=== PATIENT | male | born 1950 | race Caucasian/White ===

== ENCOUNTER → 2017-07-28 14:08 | Outpatient (CLI) | payer MEDICARE, SELFPAY ==
--- NOTE | 2017-07-28 14:08 | DT_ITS ---
This patient was seen during an EMR downtime July 28, 2017 - August 04, 2017. This patient may have a combination of paper and electronic documentation or all paper documentation. All documentation is viewable within the e-chart portion of [facility] for each patient visit.
[2017-08-03 03:44] LABS: Hematocrit 34.4 % (40-54); Hemoglobin 10.8 g/dl (13.0-16.5); Mean Corp Hgb Conc 31.4 g/gl (32-36); Mean Corpuscular Hgb 27.8 pg (27.0-32.0); Mean Corpuscular Volume 88.7 fL (80-94); Mean Platelet Vol. 11.3 fl (6.2-12.0); POSITIVE COUNT NO; POSITIVE DIFFERENTIAL NO; POSITIVE MORPHOLOGY NO; Platelet Count 235 K/mm3 (150-450); RBC Distribution Width CV 15.2 % (11.6-14.6); RBC Distribution Width SD 48.3 fl (35.1-43.9); Red Blood Count 3.88 M/mm3 (4.6-6.2); White Blood Count 5.5 K/mm3 (4.4-11.0)
[2017-08-03 03:45] LABS: Absolute Lymphocyte Count 1.18 X10^3/ul (0.83-4.51); Absolute Neutrophil Count 3.5 X10^3/uL (2.0-7.7); Basophil% 0.5 % (0-1); Eosinophils% 2.5 % (0-5); Lymphocyte # 1.18 X10^3/ul (4.0); Lymphocyte % 21.3 % (19-41); Neutrophil # 3.45 X10^3/uL (2.7-7.7); Neutrophil % 62.3 % (47-70)
[2017-08-03 03:46] LABS: Basophil# 0.03 X10^3/uL; Eosinophil# 0.14 X10^3/uL; Monocyte# 0.72 X10^3/uL
[2017-08-03 08:46] LABS: AST(SGOT) 16 U/L (15-37); Alanine Aminotransfer ALT/SGPT 26 U/L (16-61); Albumin, Serum 3.8 g/dL (3.2-5.0); Alkaline Phosphatase 66 U/L (45-117); BUN 14 mg/dL (7-18); BUN/Creat Ratio 17.9 RATIO (10-20); Calcium,Total 8.6 mg/dL (8.5-10.1); Creatinine, Serum 0.78 mg/dL (0.70-1.30); EST Glomerular Filtration Rate 106 mL/min (>60); Est Glom Filt Rate - Afr Amer 128 mL/min (>60); Glucose 116 mg/dL (74-106); Sodium Level 143 mmol/L (136-145)
[2017-08-03 08:47] LABS: Anion Gap 9 (5-15); Chloride 109 mmol/L (98-107); Ferritin 16 ng/mL (26-388); Iron 74 ug/dL (65-175); Potassium 4.4 mmol/L (3.5-5.1)
== END ==
PROVIDERS: Visit Provider Family Medicine
DX: E11.40 Type 2 diabetes mellitus with diabetic neuropathy, unspecified (principal); E11.65 Type 2 diabetes mellitus with hyperglycemia; E78.5 Hyperlipidemia, unspecified; D64.9 Anemia, unspecified; E66.9 Obesity, unspecified; Z85.72 Personal history of non-Hodgkin lymphomas; Z72.0 Tobacco use
CPT/HCPCS: 36415; 80053; 82043; 82570; 82607; 82728; 83540; 85025

== ENCOUNTER 2017-09-23 07:12 | Day surgery (SDC) | payer MEDICARE, SELFPAY ==
[2017-09-23] VITALS (10 sets, daily range): BP systolic 101–153; BP diastolic 49–92; PULSE 70–96; RESP 16–18; TEMP 35.9–36.2; O2SAT 94–98; BMI 32.1
--- NOTE | 2017-09-23 | IMM_PTH ---
PATIENT: SAL ALONZO Jr. LOC: [facility]#:[id number] AGE/SX: 67/M ROOM: RE09/23/[address]: Dr. Wilberto Huerta MD : 1950 BED: DIS: 09/23/2017 SPEC #: [id number] RECD: 09/24/17 14:30 STATUS: MICHELLE SCOOTER #: [id number] SURY: 09/23/17 00:[address]: Wilberto Huerta DEPT: IMMUNOHISTOCHEMISTRY RECD BY: Karen Garner ENTERED: 09/24/17 14:31 SP TYPE: IMMUNO OTHR DR: Dr. Lalo De Jesus, DO Tissues: A - Stomach, NOS Procedures: H Pylori (initial) PHYSICIAN & INSTITUTION [place] [id number] SPECIMEN INFORMATION: Tissue Source: A ? Antral biopsy Clinical Info: Positive Cologuard test; family history colon CA Specimen Number: [id number] CPT code: 70153 METHODOLOGY: Deparaffinized sections of prefer/formalin-fixed tissue or PAP/DQ stained slides are incubated with monoclonal/polyclonal antibodies/oligonucleotide probes. Localization is made via biotin free immunoperoxidase method. Appropriate controls are performed and reacted as expected. Results on target cell population are indicated in the following table: RESULTS: ANTIBODY / CLONE RESULT Block A H Pylori (polyclonal) negative These tests were developed and their performance characteristics determined by [facility]. They may not have been cleared or approved by the [place]. Food and Drug Administration. The FDA has determined that such clearance or approval is not necessary. INTERPRETATION: A. Antral biopsy: Negative for Helicobacter pylori organisms. SJ:mirtha 09/25/17
[2017-09-23 07:46] LABS: Bedside Glucose 153 mg/dL (70-110)
--- NOTE | 2017-09-23 08:29 | OP.PCM_ITS ---
Problem List (1) Positive colorectal cancer screening using Cologuard test Status: Acute Report of Operation Date of Procedure: 09/23/17 Pre-Operative Diagnosis: Positive coloGuard screening examination Post-Operative Diagnosis: Prepyloric antral gastritis, small hiatal hernia. Diminutive sessile possible polyp of the ascending colon. Diminutive sessile polyp of the descending colon. Grade 2-3 internal and external hemorrhoids Surgery/Procedure Performed:: Esophagogastroduodenoscopy with antral biopsy with cold forceps. Colonoscopy with cold forcep ascending and descending biopsy Description of Surgical Findings:: Timeout and informed consent was obtained. 67-year-old gentleman was taken to the endoscopy suite. His oropharynx anesthetized with Topex. He was placed in a left lateral decubitus position. Throughout both the upper and lower endoscopy he received a total of 100 mg of Demerol and 50 mcg of fentanyl and 4.5 mg of Versed is intravenous sedation. Flexible gastroscope was inserted into the esophageal inlet. The proximal mid distal esophagus did not appear to be unremarkable. The EG junction was at 45 cm. Small hiatal hernia noted. There were no gross evidence of reflux. The scope was advanced in the stomach advanced down where there was mild irritation with some erythema with evidence suggesting recent bleeding of the prepyloric area. The scope was advanced through the pylorus. The first and second portions of the duodenum were inspected not remarkable. The scope was withdrawn back into the stomach retroflexed small hiatal hernia noted the cardia was not remarkable. Greater and lesser curvatures appeared normal. The scope was advanced down to the antrum where the mild erythema was noted. Antral biopsies obtained of the area that appeared to be with recent bleeding. Excess fluid and air was aspirated free. The scope was withdrawn to the distal esophagus no additional abnormalities of procedure was completed. The patient was kept in a left loud skin position. Digital rectal exam demonstrated at least grade 2 hemorrhoids. 2+ prostate. No mass lesions. Flexible colonoscope was in the rectum advanced through the colon patient was placed supine and with some transabdominal pressure the scope was advanced to the cecum. Bowel prep was good. The cecum ileocecal valve area was nicely achieved. The scope was carefully withdrawn and what appear to be in the mid ascending colon was a very small 4 Riddle polyp-like lesion. Upon inserting the biopsy forcep however what appeared to be likely a polyp seemed to a flattened. I did take a biopsy of that area anyway based upon the colon card testing. There did not appear to be a cystic lesion at the completion of the biopsy. The scope was further withdrawn through the transverse and into the descending colon. In the descending colon there was about a 7 cm sessile polyp- like structure. Cold forceps were used to sample and eradicate this lesion. The scope was further withdrawn without additional abnormality. Scope was retroflexed within the rectum anorectal verge and hemorrhoidal changes noted. Excess fluid and air was aspirated free the procedure was completed he tolerated it well. Impression Prepyloric gastritis with evidence of recent bleeding. Small hiatal hernia. Small polyp-like lesion of the ascending colon. Small polyp of the descending colon. Grade 2-3 internal and external hemorrhoids. The patient will be notified of pathology results as they become available. He will be encouraged to initiate famotidine 20 mg daily for his peptic ulcer disease. Based upon family history of colon cancer in his mother recommendations will be made for follow-up colonoscopy at 5 years. His previous colonoscopy was rather remote. Medications were given at 0750. The upper endoscopy started at 0753. It was completed at 0757. The colonoscopy started at 0800.. The cecum was reached at 0807. The procedure was completed at 0820. Cc: Dr. Lalo Huerta M.D., F.A.C.S. Type of Anesthesia:: IV Sedation
--- NOTE | 2017-09-23 08:30 | EGD_PTH ---
PATIENT: SAL ALONZO Jr. LOC: [facility] Faye#:[id number] AGE/SX: 67/M ROOM: RE09/23/[address]: Dr. Wilberto Huerta MD : 1950 BED: DIS: 09/23/2017 SPEC #: [id number] RECD: 09/23/17 10:37 STATUS: MICHELLE SCOOTER #: [id number] SURY: 09/23/17 08:[address]: Wilberto Huerta DEPT: SURGICAL PATHOLOGY RECD BY: Champ Cuevas ENTERED: 09/23/17 12:05 SP TYPE: EGD BIOPSY RONNY DR: Dr. Lalo De Jesus, DO Tissues: A - Gastric mucous membrane B - Ascending colon C - Descending colon Procedures: Surgery Specimen Level IV HEADER OPERATION: Colonoscopy, EGD PRE-OP DIAGNOSIS: Positive Cologuard test; family history colon CA TISSUE SUBMITTED: A ? Antral biopsy, B ? Ascending colon possible polyp biopsy, C ? Descending colon polyp biopsy MICROSCOPIC DIAGNOSIS A. Antral biopsy: Mild gastritis. B. Ascending colon, possible polyp, biopsy: Fragments of colonic mucosa, no pathologic diagnosis. C. Descending colon polyp, biopsy: Hyperplastic polyp. SJ:mirtha 09/24/17 COMMENT A. The results of immunohistochemistry for Helicobacter pylori will be reported separately ([id number]). MICROSCOPIC DESCRIPTION Slides are reviewed. A. The specimen shows fragments of gastric mucosa with chronic inflammatory cell infiltrates in the lamina propria consisting of lymphocytes and plasma cells, consistent with mild chronic gastritis. GROSS DESCRIPTION A - Received in fixative is one container labeled with the patient's name and designated gastric antrum. The specimen consists of two irregular fragments of light hicks soft tissue that in aggregate measure 0.6 x 0.4 x 0.1 cm. The specimen is totally submitted in one cassette. B - Received in fixative is one container labeled with the patient's name and designated ascending colon ? polyp. The specimen consists of two irregular fragments of light hicks soft tissue that in aggregate measure 0.5 x 0.3 x 0.1 cm. The specimen is totally submitted in one cassette. C - Received in fixative is one container labeled with the patient's name and designated descending colon polyp biopsy. The specimen consists of two irregular fragments of light hicks soft tissue that in aggregate measure 0.8 x 0.4 x 0.1 cm. The specimen is totally submitted in one cassette. / SJ:rg 09/23/17 TC:1 CPT: 00280 x3
== END 2017-09-23 09:17 | disposition home or self-care (01) ==
LOC: EN 07:12 → AC 07:14
PROVIDERS: Family Provider Family Medicine; PCP Family Medicine; Visit Provider Surgery
PROC: 0DJD8ZZ Inspection of Lower Intestinal Tract, Via Natural or Artificial Opening Endoscopic (ICD-10-PCS; CPT 45378; principal; 2017-09-23 08:25)
DX: K29.71 Gastritis, unspecified, with bleeding (principal); K63.5 Polyp of colon; K44.9 Diaphragmatic hernia without obstruction or gangrene; K64.2 Third degree hemorrhoids; K27.9 Peptic ulcer, site unspecified, unspecified as acute or chronic, without hemorrhage or perforation; K64.4 Residual hemorrhoidal skin tags; D50.9 Iron deficiency anemia, unspecified; M06.9 Rheumatoid arthritis, unspecified; I10 Essential (primary) hypertension; E11.9 Type 2 diabetes mellitus without complications; I25.10 Atherosclerotic heart disease of native coronary artery without angina pectoris; E78.5 Hyperlipidemia, unspecified; F17.200 Nicotine dependence, unspecified, uncomplicated; Z95.5 Presence of coronary angioplasty implant and graft; Z85.71 Personal history of Hodgkin lymphoma; Z80.0 Family history of malignant neoplasm of digestive organs; Z79.4 Long term (current) use of insulin; Z79.82 Long term (current) use of aspirin; Z79.02 Long term (current) use of antithrombotics/antiplatelets; Z79.899 Other long term (current) drug therapy
CPT/HCPCS: 43239; 45380; 82962; 88305; 88342; 99152; 99153; J7120

== ENCOUNTER → 2017-11-07 15:56 | Outpatient (CLI) | payer MEDICARE, SELFPAY | PROVIDERS: Family Provider Family Medicine; PCP Family Medicine; Visit Provider Family Medicine | DX: D50.9 Iron deficiency anemia, unspecified (principal); R19.7 Diarrhea, unspecified; R19.5 Other fecal abnormalities | CPT/HCPCS: 82274; 83630; 87177; 87209; 87493; 87506 ==

== ENCOUNTER → 2018-01-21 13:55 | Outpatient (CLI) | payer MEDICARE, SELFPAY ==
[2018-01-21 15:57] LABS: Absolute Lymphocyte Count 1.13 X10^3/ul (0.83-4.51); Absolute Neutrophil Count 5.2 X10^3/uL (2.0-7.7); Basophil# 0.05 X10^3/uL; Basophil% 0.6 % (0-1); Eosinophil# 0.18 X10^3/uL; Eosinophils% 2.3 % (0-5); Hematocrit 34.1 % (40-54); Hemoglobin 11.5 g/dl (13.0-16.5); Lymphocyte # 1.13 X10^3/ul (4.0); Lymphocyte % 14.5 % (19-41); Mean Corp Hgb Conc 33.7 g/gl (32-36); Mean Corpuscular Hgb 30.3 pg (27.0-32.0); Mean Corpuscular Volume 89.7 fL (80-94); Monocyte# 1.13 X10^3/uL; Monocyte% 14.5 % (0-10); Neutrophil # 5.19 X10^3/uL (2.7-7.7); Neutrophil % 66.8 % (47-70); Platelet Count 307 K/mm3 (150-450); RBC Distribution Width CV 12.4 % (11.6-14.6); RBC Distribution Width SD 39.8 fl (35.1-43.9); White Blood Count 7.8 K/mm3 (4.4-11.0)
[2018-01-21 16:02] LABS: POSITIVE COUNT NO; POSITIVE DIFFERENTIAL NO; POSITIVE MORPHOLOGY NO
[2018-01-21 16:21] LABS: BUN 14 mg/dL (7-18); Glucose 182 mg/dL (74-106)
[2018-01-21 16:22] LABS: ALB/GLOB Ratio 0.9 RATIO (0.9-2.4); AST(SGOT) 14 U/L (15-37); Alanine Aminotransfer ALT/SGPT 24 U/L (16-61); Albumin, Serum 3.3 g/dL (3.2-5.0); Alkaline Phosphatase 70 U/L (45-117); Anion Gap 9 (5-15); BUN/Creat Ratio 15.5 RATIO (10-20); Calcium,Total 8.4 mg/dL (8.5-10.1); Chloride 106 mmol/L (98-107); EST Glomerular Filtration Rate 89 mL/min (>60); Est Glom Filt Rate - Afr Amer 108 mL/min (>60); Ferritin 115 ng/mL (26-388); Globulin 3.7 g/dL (2.2-4.2); Hemoglobin A1c 7.1 % (4.2-6.3); Iron 54 ug/dL (65-175); Potassium 4.7 mmol/L (3.5-5.1); Sodium Level 139 mmol/L (136-145)
--- OUTSIDE RECORDS SUMMARY | 2018-03-18 23:42 | XMS RPT_ITS ---
:1950 Author Organization OHIP Care Team Providers Name Role Phone OMAR RODRIGUEZ Attending Unavailable Lalo De Jesus Attending Unavailable Lalo De Jesus Referring Unavailable Lalo De Jesus Attending Unavailable Cebumohit, Wilberto Attending Unavailable Neal Lalo Referring Unavailable Cebul, Wilberto Attending Unavailable NealLalo lozano Primary Care Unavailable Cebul, Wilberto Referring Unavailable Cebumohit, Wilberto Attending Unavailable Cebul, Wilberto Referring Unavailable Neal, Lalo Primary Care Unavailable Cebul, Wilberto Consulting Unavailable Neal, Lalo Attending Unavailable Neal, Lalo Primary Care Unavailable Neal, Lalo Attending Unavailable Neal, Lalo Primary Care Unavailable PROBLEMS PROBLEMS DATE TYPE CONDITION / CODE ATTENDING STATUS SOURCE 01/21/2018 Unknown E11.40 - Type 2 Lalo De Jesus Active [place] 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, Repository unspecified / E11.40(ICD-10) 01/21/2018 Unknown D50.9 - Iron Lalo De Jesus Active [facility] deficiency anemia, Community unspecified / Hospital D50.9(ICD-10) Repository 01/21/2018 Unknown E11.65 - Type 2 Lalo De Jesus Active [facility] diabetes mellitus Community with hyperglycemia / Hospital E11.65(ICD-10) Repository 01/21/2018 Unknown E78.5 - Lalo De Jesus Active [facility] [place] Hyperlipidemia, Community unspecified / Hospital E78.5(ICD-10) Repository 01/21/2018 Unknown E66.9 - Obesity, Lalo De Jesus Active [facility] unspecified / Community E66.9(ICD-10) Hospital Repository 11/07/2017 Unknown R19.7 - Diarrhea, Lalo D eJesus Active [facility] unspecified / Community R19.7(ICD-10) Hospital Repository 11/07/2017 Unknown R19.5 - Other fecal Lalo De Jesus Active [facility] abnormalities / Community R19.5(ICD-10) Hospital Repository 09/03/2017 Unknown Z98.890 - Other CebuWilberto rueda Active [facility] specified Community postprocedural Hospital states / Repository Z98.890(ICD-10) 09/03/2017 Unknown Z95.5 - Presence of Cebumohit, Wilberto Active [facility] coronary angioplasty Community implant and graft / Hospital Z95.5(ICD-10) Repository 09/03/2017 Unknown Z90.89 - Acquired Cebul, Wilberto Active [facility] absence of other Community organs / Hospital Z90.89(ICD-10) Repository 09/03/2017 Unknown Z86.39 - Personal CebulWilberto Active [facility] history of other Community endocrine, Hospital nutritional and Repository metabolic disease / Z86.39(ICD-10) 09/03/2017 Unknown Z85.71 - Personal CebuWilberto rueda Active [facility] [place] history of Hodgkin Community lymphoma / Hospital Z85.71(ICD-10) Repository 08/12/2017 Unknown D64.9 - Anemia, Lalo De Jesus Active [facility] [place] unspecified / Community D64.9(ICD-10) Hospital Repository PROCEDURES PROCEDURES No Procedure Records FoundRESULTS RESULTS CBC W/DIFF, AUTOMATED Collected: 01/21/2018 Status: F Source: [place] 1:59 PM [facility] HOSPITAL REPOSITORY TYPE CODE TESTS RESULT OUT OF RANGE REFERENCE UNITS LAB L100.1000 4.4-11.0 K/mm3 Normal WBC 7.8 LAB L100.1200 4.6-6.2 M/mm3 Low RBC 3.80 LAB L100.1300 13.0-16.5 g/dl Low HGB 11.5 LAB L100.1400 40-54 % Low HCT 34.1 LAB L100.1500 80-94 fL Normal MCV 89.7 LAB L100.1600 27.0-32.0 pg Normal MCH 30.3 LAB L100.1700 32-36 g/gl Normal MCHC 33.7 LAB L100.1810 11.6-14.6 % Normal RDW CV 12.4 LAB L100.1820 35.1-43.9 fl Normal RDW SD 39.8 LAB L100.1900 150-450 K/mm3 Normal PLT 307 LAB L100.2000 6.2-12.0 fl Normal MPV 11.0 LAB L100.2100 47-70 % Normal NEUT% 66.8 LAB L100.2200 19-41 % Low LY% 14.5 LAB L100.2300 0-10 % High MONO% 14.5 LAB L100.2400 0-5 % Normal EO% 2.3 LAB L100.2500 0-1 % Normal BASO% 0.6 LAB L100.2550 0.0-0.9 % High IM GRAN % 1.300 Result Comment: IG% - Immature Granulocytes (promyelocytes, myelocytes and metamyelocytes) > 1% indicates that a LEFT SHIFT is Present. LAB L100.2620 2.0-7.7 X10 3/uL Normal Absolute Neut 5.2 LAB L100.2720 0.83-4.51 X10 3/ul Normal Absolute Lymph 1.13 Performed By: #### L100.0100 #### [facility] [address] [place], [place], [id number] COMPREHENSIVE METABOLIC Collected: 01/21/2018 Status: F Source: [place] [facility] 1:59 PM [facility] REPOSITORY TYPE CODE TESTS RESULT OUT OF RANGE REFERENCE UNITS LAB L501.0100 74-106 mg/dL High GLU 182 Result Comment: Fasting Glucose result greater than or equal to 126 mg/dL suggests DIABETES MELLITUS per A.D.A. criteria. Please note revised GLUCOSE reference range effective 2017. LAB L501.1000 7-18 mg/dL Normal BUN 14 LAB L501.1100 0.70-1.30 mg/dL Normal CREAT,SERUM 0.90 Result Comment: The validity of the calculated GFR AND GFRAA in patients over 70 years has not been determined. Clinical correlation is essential. LAB L501.1110 >60 mL/min Normal EST GFR 89 Result Comment: Non- GFR Calc LAB L501.1115 >60 mL/min Normal EST GFR - AA 108 Result Comment: GFR Calc LAB L501.1300 10-20 RATIO Normal BUN/CRE 15.5 LAB L501.1500 6.4-8.2 g/dL T Normal PROT 7.0 LAB L501.1800 3.2-5.0 g/dL Normal ALB 3.3 LAB L501.1950 2.2-4.2 g/dL Normal GLOB 3.7 LAB L501.2000 0.9-2.4 RATIO Normal A/G 0.9 LAB L501.2200 8.5-10.1 mg/dL Low CA 8.4 LAB L501.4100 15-37 U/L Low AST 14 LAB L501.4305 45-117 U/L Normal ALK P 70 LAB L501.4405 16-61 U/L Normal ALT 24 LAB L501.4600 0.20-1.00 mg/dL T Normal BILI 0.40 LAB L501.5300 136-145 mmol/L NA Normal 139 LAB L501.5600 3.5-5.1 mmol/L K Normal 4.7 LAB L501.5900 98-107 mmol/L CL Normal 106 LAB L501.6100 21.0-32.0 mmol/L Normal CO2 24.0 LAB L501.6200 5-15 Normal GAP 9 Performed By: #### L500.4050, L503.6150, L503.6550 #### [facility] [address] [place], [address] IRON Collected: 01/21/2018 Status: F Source: [place] 1:59 PM [facility] REPOSITORY TYPE CODE TESTS RESULT OUT OF RANGE REFERENCE UNITS LAB L503.6150 65-175 ug/dL Low IRON 54 Performed By: #### L500.4050, L503.6150, L503.6550 #### [facility] [address] [place], [address] FERRITIN Collected: 01/21/2018 Status: F Source: [place] 1:59 PM [facility] REPOSITORY TYPE CODE TESTS RESULT OUT OF RANGE REFERENCE UNITS LAB L503.6550 26-388 ng/mL Normal FERRITIN 115 Performed By: #### L500.4050, L503.6150, L503.6550 #### [facility] [address] [place], [address] HEMOGLOBIN A1C Collected: 01/21/2018 Status: F Source: [place] 1:59 PM [facility] REPOSITORY TYPE CODE TESTS RESULT OUT OF RANGE REFERENCE UNITS LAB L501.9985 4.2-6.3 % High HGB A1C 7.1 Performed By: #### L501.9985 #### [facility] [address] [place], [address] STOOL Observed: 11/07/2017 Status: F Source: [place] LACTOFERRIN/WBC 3:57 PM [facility] REPOSITORY RESULTS CALLED TO DR DE JESUS 11/07/17 Marvin Nair. REPORT READ BACK BY SAME. Stool Lacto/WBC Normal Reference Range = Negative Fecal WBC Lactoferrin Negative: No Fecal WBC Lactoferrin present Performed By: #### M100.0605, M100.7900, M100.1396, M100.637 #### [facility] [address] [facility], [address] Observed: 11/07/2017 Status: F Source: [place] STOOL OCCULT BLOOD 3:57 PM [facility] IFOB REPOSITORY RESULTS CALLED TO DR DE JESUS 11/07/172008 Claire Nair. REPORT READ BACK BY SAME. STOB iFOB Occult Blood Positive ORGANISM 1: OCCULT BLOOD POSITIVE Performed By: #### M100.0605, M100.7900, M100.6796, M100.637 #### [facility] [address] [facility], [address] Observed: 11/07/2017 Status: F Source: [place] CDIFF (MOLECULAR) 3:57 PM [facility] REPOSITORY RESULTS CALLED TO DR DE JESUS 11/07/172008 Claire Nair. REPORT READ BACK BY SAME. Cdiff-Molecular Normal Reference Range = Negative C. Diff DNA Positive-Toxigenic C. Difficile DNA Detected NAAT METHOD Testing was performed using nucleic acid amplification ORGANISM 1: Toxigenic C. difficile DNA Performed By: #### M100.0605, M100.7900, M100.6796, M100.637 #### [facility] [address] [facility], [address] Observed: 11/07/2017 Status: F Source: [place] ENTERIC PATHOGEN 3:57 PM [facility] PANEL STOOL REPOSITORY RESULTS CALLED TO DR DE JESUS 11/07/172008 Claire Nair. REPORT READ BACK BY SAME. EP PANEL STOOL Normal Reference Range = Not Detected Not detected for Campylobacter group, Salmonella species, Shigella species, Vibrio Group, Yersinia enterocolitica, EHEC (Shiga Toxin 1, Shiga Toxin 2), Norovirus Gl/Gll, and Rotavirus A. Other common stool pathogens are not detected on this panel include: Aeromonas/Plesiomonas or parasites. Order testing for these organisms separately if suspected. This is an amplified DNA test which makes it both specific and sensitive. CAMPYLOBACTER Not Detected Salmonella Not Detected Shigella sp. Not Detected Shiga Toxin Not Detected Yersinia Not Detected VIBRIO Not Detected Norovirus Not Detected Rotavirus Not Detected Performed By: #### M100.0605, M100.7900, M100.6796, M100.637 #### [facility] [address] [place], [address] Observed: 11/07/2017 Status: F Source: [place] OVA AND PARASITES 3:57 PM [facility] REPOSITORY O + P OVA AND PARASITES EXAM, ROUTINE These results were obtained using wet preparation(s) and trichrome stained smear. This test does not include testing for Crytosporidium parvum, Cyclospora, or Microsporidia. TESTING PERFORMED AT [facility]. ORIGINAL REPORT ON FILE IN LAB CONTAINS ADDITIONAL TEST SITE INFORMATION. Ova/Parasite Exam NO OVA, CYSTS, OR PARASITES FOUND. Performed By: #### M600.5000 #### [facility] [place], [address] OPERATIVE REPORT Observed: 09/23/2017 Status: F Source: [place] 8:36 AM [facility] REPOSITORY [facility] Medical Records Department [facility] [place] [address] Operative Report 09/23/17 0827 MR#: [id number] Acct: [id number] Name: JAYDON QUINTANA Rep #: [id number] : 1950 67 From: Wilberto Huerta MD PCP: Lalo De Jesus DO Status: [facility] Y Location: [place] [address] Problem List (1) Positive colorectal cancer screening using Cologuard test Status: Acute Report of Operation Date of Procedure: 09/23/17 Pre-Operative Diagnosis: Positive coloGuard screening examination Post-Operative Diagnosis: Prepyloric antral gastritis, small hiatal hernia. Diminutive sessile possible polyp of the ascending colon. Diminutive sessile polyp of the descending colon. Grade 2-3 internal and external hemorrhoids Surgery/Procedure Performed:: Esophagogastroduodenoscopy with antral biopsy with cold forceps. Colonoscopy with cold forcep ascending and descending biopsy Description of Surgical Findings:: Timeout and informed consent was obtained. 67-year-old gentleman was taken to the endoscopy suite. His oropharynx anesthetized with Topex. He was placed in a left lateral decubitus position. Throughout both the upper and lower endoscopy he received a total of 100 mg of Demerol and 50 mcg of fentanyl and 4.5 mg of Versed is intravenous sedation. Flexible gastroscope was inserted into the esophageal inlet. The proximal mid distal esophagus did not appear to be unremarkable. The EG junction was at 45 cm. Small hiatal hernia noted. There were no gross evidence of reflux. The scope was advanced in the stomach advanced down where there was mild irritation with some erythema with evidence suggesting recent bleeding of the prepyloric area. The scope was advanced through the pylorus. The first and second portions of the duodenum were inspected not remarkable. The scope was withdrawn back into the stomach retroflexed small hiatal hernia noted the cardia was not remarkable. Greater and lesser curvatures appeared normal. The scope was advanced down to the antrum where the mild erythema was noted. Antral biopsies obtained of the area that appeared to be with recent bleeding. Excess fluid and air was aspirated free. The scope was withdrawn to the distal esophagus no additional abnormalities of procedure was completed. The patient was kept in a left loud skin position. Digital rectal exam demonstrated at least grade 2 hemorrhoids. 2+ prostate. No mass lesions. Flexible colonoscope was in the rectum advanced through the colon patient was placed supine and with some transabdominal pressure the scope was advanced to the cecum. Bowel prep was good. The cecum ileocecal valve area was nicely achieved. The scope was carefully withdrawn and what appear to be in the mid ascending colon was a very small 4 Riddle polyp-like lesion. Upon inserting the biopsy forcep however what appeared to be likely a polyp seemed to a flattened. I did take a biopsy of that area anyway based upon the colon card testing. There did not appear to be a cystic lesion at the completion of the biopsy. The scope was further withdrawn through the transverse and into the descending colon. In the descending colon there was about a 7 cm sessile polyp-like structure. Cold forceps were used to sample and eradicate this lesion. The scope was further withdrawn without additional abnormality. Scope was retroflexed within the rectum anorectal verge and hemorrhoidal changes noted. Excess fluid and air was aspirated free the procedure was completed he tolerated it well. Impression Prepyloric gastritis with evidence of recent bleeding. Small hiatal hernia. Small polyp-like lesion of the ascending colon. Small polyp of the descending colon. Grade 2-3 internal and external hemorrhoids. The patient will be notified of pathology results as they become available. He will be encouraged to initiate famotidine 20 mg daily for his peptic ulcer disease. Based upon family history of colon cancer in his mother recommendations will be made for follow-up colonoscopy at 5 years. His previous colonoscopy was rather remote. Medications were given at 0750. The upper endoscopy started at 0753. It was completed at 0757. The colonoscopy started at 0800.. The cecum was reached at 0807. The procedure was completed at 0820. Cc: Dr. Lalo Huerta M.D., F.A.C.S. Type of Anesthesia:: IV Sedation 09/23/17 0836 <Electronically signed by Wilberto Huerta MD> Date Wilberto Huerta MD CC: Lalo De Jesus DO; Wilberto Huerta MD Signed EGD ([facility]) Observed: 09/23/2017 Status: F Source: [place] 8:30 AM [facility] REPOSITORY Patient: JAYDON QUINTANA : 1950 (67/M) Acct Num: [id number] Phys: Bradley TEIXEIRA,Wilberto Unit Num: [id number] Loc: EN Specimen: [id number] Received: 09/23/17 - 1037 Spec Type: EGD BIOPSY TISSUES TISSUES: A. Gastric mucous membrane B. Ascending colon C. Descending colon COMMENT A. The results of immunohistochemistry for Helicobacter pylori will be reported separately ([id number]). GROSS DESCRIPTION A - Received in fixative is one container labeled with the patient's name and designated gastric antrum. The specimen consists of two irregular fragments of light hicks soft tissue that in aggregate measure 0.6 x 0.4 x 0.1 cm. The specimen is totally submitted in one cassette. B - Received in fixative is one container labeled with the patient's name and designated ascending colon ? polyp. The specimen consists of two irregular fragments of light hicks soft tissue that in aggregate measure 0.5 x 0.3 x 0.1 cm. The specimen is totally submitted in one cassette. C - Received in fixative is one container labeled with the patient's name and designated descending colon polyp biopsy. The specimen consists of two irregular fragments of light hicks soft tissue that in aggregate measure 0.8 x 0.4 x 0.1 cm. The specimen is totally submitted in one cassette. / KENNETH:mirtha 09/23/17 TC:1 CPT: 36189 x3 HEADER OPERATION: Colonoscopy, EGD PRE-OP DIAGNOSIS: Positive Cologuard test; family history colon CA TISSUE SUBMITTED: A Antral biopsy, B Ascending colon possible polyp biopsy, C Descending colon polyp biopsy MICROSCOPIC DESCRIPTION Slides are reviewed. A. The specimen shows fragments of gastric mucosa with chronic inflammatory cell infiltrates in the lamina propria consisting of lymphocytes and plasma cells, consistent with mild chronic gastritis. MICROSCOPIC DIAGNOSIS A. Antral biopsy: Mild gastritis. B. Ascending colon, possible polyp, biopsy: Fragments of colonic mucosa, no pathologic diagnosis. C. Descending colon polyp, biopsy: Hyperplastic polyp. KENNETH:mirtha 09/24/17 Signed Mc Urias 09/24/17 <signature on file> Performed By: #### PEGD #### [facility] [address] [facility], [address] BEDSIDE GLUCOSE Collected: 09/23/2017 Status: F Source: [place] 7:33 AM [facility] REPOSITORY TYPE CODE TESTS RESULT OUT OF REFERENCE UNITS RANGE LAB L501.080 70-110 mg/dL High BEDSIDE GLU 153 Result Comment: MANAGEMENT OF PATIENT CARE PER NURSING PROTOCOL Performed By: #### L501.080 #### [facility] Point of Care [address] [facility] [address] IMMUNOHISTOCHEMISTRY Observed: 09/23/2017 Status: F Source: [place] 12:00 AM [facility] REPOSITORY Patient: JAYDON QUINTANA : 1950 (67/M) Acct Num: [id number] Phys: Wilberto Huerta MD Unit Num: [id number] Loc: EN Specimen: [id number] Received: 09/24/17 - 1430 Spec Type: IMMUNO TISSUES TISSUES: A. Stomach, NOS SPECIMEN INFORMATION: Tissue Source: A Antral biopsy Clinical Info: Positive Cologuard test; family history colon CA Specimen Number: [id number] CPT code: 82037 METHODOLOGY: Deparaffinized sections of prefer/formalin-fixed tissue or PAP/DQ stained slides are incubated with monoclonal/polyclonal antibodies/oligonucleotide probes. Localization is made via biotin free immunoperoxidase method. Appropriate controls are performed and reacted as expected. Results on target cell population are indicated in the following table: RESULTS: ANTIBODY / CLONE RESULT Block A H Pylori (polyclonal) negative These tests were developed and their performance characteristics determined by [facility]. They may not have been cleared or approved by the U.S. Food and Drug Administration. The FDA has determined that such clearance or approval is not necessary. INTERPRETATION: A. Antral biopsy: Negative for Helicobacter pylori organisms. SJ:mirtha 09/25/17 PHYSICIAN AND INSTITUTION [place] [address] Signed Mc Urias 09/25/17 <signature on file> Performed By: #### PIMM #### [facility] [address] [place] [address], [id number] SURGERY VISIT REPORT Observed: 09/02/2017 Status: F Source: [place] 5:14 PM [facility] REPOSITORY [facility] [address] [place] [address] [address] [place] [address] OFFICE VISIT Date of Service: 09/02/17 MR#: [id number] Acct: [id number] Name: JAYDON QUINTANA Rep #: [id number] : 1950 Provider: Wilberto Huerta MD Age/Sex: 66/M Location: [facility] Status: Signed Intake Vital Signs09/02/17 Height 5 ft 11 in 09/02/17 Weight: 245 lb Intake Visit Reasons: + Cologuard Edm Operator Required: No Allergies No Known Allergies Allergy (Verified 09/02/17 16:11) Medications Aspirin [Aspirin, Baby] 81 mg PO DAILY@0800 09/11/13 [History Confirmed 09/02/17] Glimepiride [Amaryl] 4 mg PO BID 09/11/13 [History Confirmed 09/02/17] Metformin HCl [Glucophage] 1,000 mg PO BIDCM 09/11/13 [History Confirmed 09/02/17] Metoprolol Tartrate [Lopressor (Beta Caren)] 25 mg PO BID 09/11/13 [History Confirmed 09/02/17] Multivitamins,Ther W-Minerals [Multivitamin With Minerals] 1 tab PO DAILY 09/11/13 [History Confirmed 09/02/17] Niacin [Niacin ER] 500 mg PO QHS 09/11/13 [History Confirmed 09/02/17] Atorvastatin Calcium [Lipitor] 40 mg PO QHS 05/22/16 [History Confirmed 09/02/17] Clopidogrel Bisulfate [Plavix] 75 mg PO DAILY 05/22/16 [History Confirmed 09/02/17] Insulin Glargine,Hum.rec.anlog [Lantus] 30 unit SQ QHS 05/22/16 [History Confirmed 09/02/17] Losartan Potassium [Cozaar] 25 mg PO DAILY 05/22/16 [History Confirmed 09/02/17] rituximab 10 mg/mL concentrate,intravenous mg .ROUTE 09/02/17 [History Confirmed 09/02/17] [facility] Medical History History of heart artery stent (Acute) RA (rheumatoid arthritis) (Acute) hypertension (Chronic) History of diabetes mellitus, type II (Chronic) History of coronary artery disease (Chronic) History of hyperlipidemia (Chronic) History of Hodgkin's disease (Chronic) Surgical History Hx of thymectomy (Acute) Hx of lymph node excision (Acute) History of excision of pilonidal cyst (Acute) Family History (Reviewed 07/10/18 @ 16:15 by Tori Pierson Father Arthritis Bleeding disorder Hypertension Kidney disease Cancer Skin Mother Colon cancer Cancer Lung Cancer Diabetes Brother Thyroid disorder Social History Smoking Status: Current every day smoker second hand exposure: Yes alcohol intake: current substance use type: does not use caffeine: Yes what type of physical activity do you participate in: none frequency: does not exercise seatbelt use: always HPI HPI HPI: JAYDON QUINTANA, is a 66 M who presents to the office today for surgical consultation regarding a colo-guard positive exam. The patient is referred by Dr. Lalo De Jesus and a written copy of my surgical consult recommendations will be returned to Dr. De Jesus. The patient recalls in approximately 2004 he had a colonoscopy done by Dr. Elder Méndez. He believes that he may have had a benign polyp removed at that time. He denies any bright red blood per rectum or melena. He did have a stool check and was positive for colo- guard. It is of additional note that his mother had colon cancer when she was in her 60s. The patient himself has had Hodgkin's lymphoma involving the right lower extremity and has had a lymph node resection. He has chronic right lower extremity lymphedema more so than the left. When he was working still he wore right lower extremity support hose. He is currently retired and has not been wearing them. 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 His most recent laboratory was obtained on August 20, 2017. White blood cell count is 5.5 with a hemoglobin 10.8 and hematocrit 34.4 and platelet count 235,000. His iron level 74 and his ferritin is 16. Liver function tests were normal He denies abdominal pain. He has not noticed bright red blood per rectum or melena ROS General General: Yes fatigue; no weight change, appetite, colon cancer, breast cancer or weakness HEENT HEENT: Yes eye injury; no difficulty swallowing, eye surgery, swollen glands or hoarseness Endo Endocrine: Yes diabetes mellitus; no thyroid disease, thyroid cancer, Hair loss, heat intolerance or cold intolerance Skin Skin: No rash or changing moles Musc Musculoskeletal: Yes back problems, arthritis and rheumatoid arthritis; no gout or joint pain Cardio Cardiovascular: Yes high blood pressure and heart stent; no murmur, pacemaker, heart disease, atrial fibrillation, heart attack, palpitations, shortness of breat with exertion or chest pain Psych Psychiatric: No depression, anxiety or hearing voices Resp Respiratory: No shortness of breath, No sleep apnea, Yes cough, No COPD, No asthma, No emphysema, No wheezing Gastro Gastrointestinal: No abdominal pain, No nausea or vomiting, No diarrhea, No constipation, Yes blood in stool, No acid reflux, No hemorrhoids, No ulcers, No gallbladder problem, Yes black,tarry stools Walt Hematologic: Yes blood thinners, No blood disorders, No bleeding, Yes anemia, No blood clots Neuro Neurologic: No weakness Exam Const General: cooperative, healthy appearing, no acute distress Nutritional Appearance: obese Orientation: alert, awake, oriented x3 Other: Heavy odor of tobacco HENMT Head: normal to inspection Eyes General: appearance normal, both eyes and all related structures Neck Neck: normal visual inspection Chest Other: Mildly increased anterior posterior diameter Resp Other: Reasonable excursion. Slightly diminished in the bases with slight dry crackles Cardio Rate: regular rate Rhythm: regular rhythm Heart Sounds: no murmurs GI Inspection: normal to inspection Palpation: soft, no hepatosplenomegaly Auscultation: normal bowel sounds Other: Small umbilical hernia Other: Nonpitting induration/edema noted bilateral groins and suprapubic Musc Cervical Spine: normal cervical lordosis Neuro Cranial Nerves: CN's II-XI intact bilaterally Extrem Other: Significant 2-3+ right lower extremity nonpitting edema and 1+ left lower extremity nonpitting edema. Somewhat of a woody induration Psych Affect: normal affect Assessment AND Plan Problems 1. Hx of lymph node excision Z98.890 2. History of heart artery stent Z95.5 3. Hx of thymectomy Z90.89 4. Iron deficiency anemia, unspecified iron deficiency anemia type D50.9 5. History of diabetes mellitus, type II Z86.39 6. History of Hodgkin's disease Z85.71 7. History of hyperlipidemia Z86.39 Plan 66-year-old gentleman. History of atherosclerotic coronary vascular disease with coronary stenting on clopidogrel and aspirin anticoagulation. Hyperlipidemia on statin. 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 Has had a history of thymectomy. Type 2 diabetes. Hypertension. Obesity. Ongoing tobacco addiction He has been found to have a significant iron deficiency anemia. Family history is positive for colon cancer in his mother. He has had a very remote colonoscopy with by his report a previous colon polyp I am recommending to him a combined esophagogastroduodenoscopy with possible biopsy and colonoscopy with possible biopsy or polypectomy is indicated and I discussed the technique, benefits, risks, alternatives. The indication for the test is positive colo-guard. I have strongly encouraged the patient to cease his tobacco use. He has had an opportunity to ask and have questions answered regarding his tobacco utilization and the potential adverse effects for more definitive surgery. I have encouraged him to utilize bilateral lower extremity support garments. I have provided him a prescription for waist high bilateral extremity support hose 20-30 mmHg pressure. We will proceed with the upper and lower endoscopy upon my return from vacation. I very much appreciate the kind opportunity of assisting with his surgical care Cc: Dr. Lalo Huerta M.D., F.A.C.S. Coding Level of Care Code Comprehensive,moderate Diagnoses Hx of lymph node excision Z98.890 History of heart artery stent Z95.5 Hx of thymectomy Z90.89 Iron deficiency anemia, unspecified iron deficiency anemia type D50.9 Iron deficiency anemia type: unspecified iron deficiency History of diabetes mellitus, type II Z86.39 History of Hodgkin's disease Z85.71 History of hyperlipidemia Z86.39 Time Spent (min) 55 09/02/17 1714 <Electronically signed by Wilberto Huerta MD> Date Wilberto Huerta MD Cosigner Signature: Date (if applicable) CC: DOWNTIME REPORT Observed: 08/14/2017 Status: F Source: [place] 1:19 PM [facility] REPOSITORY [facility] Medical Records Department [address] [place] [address] Downtime Report MR#: [id number] Acct: [id number] Name: JAYDON QUINTANA Rep #: [id number] : 1950 66 From: Isaias Riddle PCP: Status: REG CLI This patient was seen during an EMR downtime July 28, 2017 - August 04, 2017. This patient may have a combination of paper and electronic documentation or all paper documentation. All documentation is viewable within the e-chart portion of [employer] for each patient visit. VITAMIN B12 Collected: 07/28/2017 Status: F Source: [place] 2:08 PM [facility] REPOSITORY TYPE CODE TESTS RESULT OUT OF RANGE REFERENCE UNITS LAB L503.0105 211-911 pg/mL Test Normal Vitamin B12 not performed Result Comment: NO YELLOW TUBE SENT FOR THE VITAMIN B12 DURING DOWNTIME. PATIENT WILL NEED TO BE REDRAWN. Performed By: #### L503.0105 #### [facility] [address] [place], [address] COMPREHENSIVE METABOLIC Collected: 07/28/2017 Status: F Source: [facility] 2:08 PM [facility] REPOSITORY Order Comment: RESULT(S) PREVIOUSLY REPORTED ON MANUAL REQUISITION DURING DOWNTIME. TYPE CODE TESTS RESULT OUT OF RANGE REFERENCE UNITS LAB L501.0100 74-106 mg/dL High GLU 116 Result Comment: Fasting Glucose result from 100 to 125 mg/dL suggests IMPAIRED HOMEOSTASIS per A.D.A. criteria. Please note revised GLUCOSE reference range effective 2017. LAB L501.1000 7-18 mg/dL Normal BUN 14 LAB L501.1100 0.70-1.30 mg/dL Normal CREAT,SERUM 0.78 Result Comment: The validity of the calculated GFR AND GFRAA in patients over 70 years has not been determined. Clinical correlation is essential. LAB L501.1110 >60 mL/min 106 Normal EST GFR LAB L501.1115 >60 mL/min 128 Normal EST GFR - AA LAB L501.1300 10-20 RATIO 17.9 Normal BUN/CRE LAB L501.1500 6.4-8.2 g/dL Test Normal T not performed PROT LAB L501.1800 3.2-5.0 g/dL 3.8 Normal ALB LAB L501.2200 8.5-10.1 mg/dL 8.6 Normal CA LAB L501.4100 15-37 U/L 16 Normal AST LAB L501.4305 45-117 U/L 66 Normal ALK P LAB L501.4405 16-61 U/L 26 Normal ALT LAB L501.4600 0.20-1.00 mg/dL Test Normal T not performed BILI LAB L501.5300 136-145 mmol/L 143 Normal NA LAB L501.5600 3.5-5.1 mmol/L 4.4 Normal K LAB L501.5900 98-107 mmol/L High 109 CL LAB L501.6100 21.0-32.0 mmol/L 25.0 Normal CO2 LAB L501.6200 5-15 9 Normal GAP Performed By: #### L500.4050, L503.6150, L503.6550 #### [facility] [address] [place], [place], [id number] IRON Collected: 07/28/2017 Status: F Source: [place] 2:08 PM [facility] REPOSITORY Order Comment: RESULT(S) PREVIOUSLY REPORTED ON MANUAL REQUISITION DURING DOWNTIME. TYPE CODE TESTS RESULT OUT OF RANGE REFERENCE UNITS LAB L503.6150 65-175 ug/dL Normal IRON 74 Performed By: #### L500.4050, L503.6150, L503.6550 #### [facility] [address] [place], [place], [id number] FERRITIN Collected: 07/28/2017 Status: F Source: [place] 2:08 PM [facility] REPOSITORY Order Comment: RESULT(S) PREVIOUSLY REPORTED ON MANUAL REQUISITION DURING DOWNTIME. TYPE CODE TESTS RESULT OUT OF REFERENCE UNITS RANGE LAB L503.6550 26-388 ng/mL Low FERRITIN 16 Performed By: #### L500.4050, L503.6150, L503.6550 #### [facility] [address] [place], [place], [address] MICROALB:CREAT Collected: 07/28/2017 Status: F Source: [place] RATIO,RANDOM UR 2:08 PM [facility] REPOSITORY TYPE CODE TESTS RESULT OUT OF RANGE REFERENCE UNITS LAB L501.1200 NO RANGE EST. mg/dL Test Normal UR not performed CREAT LAB L502.0500 NO RANGE EST. mg/L Test Normal not performed MICROALBUMI N,UR LAB L502.0600 <30 mg/g CRE mg/g CRE Test Normal not performed MALB:CREAT Performed By: #### L502.0250 #### [facility] [address] [place], [place], [address] CBC W/DIFF, AUTOMATED Collected: 07/28/2017 Status: F Source: [place] 2:08 PM [facility] REPOSITORY Order Comment: RESULT(S) PREVIOUSLY REPORTED ON MANUAL REQUISITION DURING DOWNTIME. TYPE CODE TESTS RESULT OUT OF RANGE REFERENCE UNITS LAB L100.1000 4.4-11.0 K/mm3 Normal WBC 5.5 LAB L100.1200 4.6-6.2 M/mm3 Low RBC 3.88 LAB L100.1300 13.0-16.5 g/dl Low HGB 10.8 LAB L100.1400 40-54 % Low HCT 34.4 LAB L100.1500 80-94 fL Normal MCV 88.7 LAB L100.1600 27.0-32.0 pg Normal MCH 27.8 LAB L100.1700 32-36 g/gl Low MCHC 31.4 LAB L100.1810 11.6-14.6 % High RDW CV 15.2 LAB L100.1820 35.1-43.9 fl High RDW SD 48.3 LAB L100.1900 150-450 K/mm3 Normal PLT 235 LAB L100.2000 6.2-12.0 fl Normal MPV 11.3 LAB L100.2100 47-70 % Normal NEUT% 62.3 LAB L100.2200 19-41 % Normal LY% 21.3 LAB L100.2300 0-10 % High MONO% 13.0 LAB L100.2400 0-5 % Normal EO% 2.5 LAB L100.2500 0-1 % Normal BASO% 0.5 LAB L100.2550 0.0-0.9 % Normal IM GRAN % 0.400 Result Comment: IG% - Immature Granulocytes (promyelocytes, myelocytes and metamyelocytes) > 1% indicates that a LEFT SHIFT is Present. LAB L100.2620 2.0-7.7 X10 3/uL Normal Absolute Neut 3.5 LAB L100.2720 0.83-4.51 X10 3/ul Normal Absolute Lymph 1.18 Performed By: #### L100.0100 #### [facility] [address] [place], [address] ALLERGIES ALLERGIES DATE TYPE / CODE NAME / CODE REACTION SEVERITY SOURCE 09/23/2017 Drug No Known Unknown [facility] Allergy/4160 Allergies/F00 [facility] [address](SNOMED [id number](RXNOR Repository CT) M) ENCOUNTERS ENCOUNTERS ADMIT/DISCHARGE ACCOUNT ADMITTING ENCOUNTER LOCATION SOURCE NUMBER CLASS 01/21/2018 [id number] Ambulatory [place] 0 [facility] ing:LAB.FUTUR Repository E 11/07/2017 [id number] Ambulatory [place] 4 [facility] ing:BFHLAB Repository 09/23/2017/ [id number] Ambulatory [place] 8 4 [facility] ing:ENRoom: Repository AC14 09/23/2017 [id number] Ambulatory BMSBuilding:B [place] 0 MS.CF.[facility] Repository 09/02/2017/ [id number] Ambulatory BMSBuilding:B [place] 8 0 MS.[facility] Repository 08/12/2017 [id number] Ambulatory [place] 3 [facility] ing:LAB.FUTUR Repository E 07/28/2017 [id number] Ambulatory [place] 3 [facility] ing:BFHLAB Repository 07/18/2017 [id number] Ambulatory [place] 7 [facility] ing:LAB.FUTUR Repository E PAYERS PAYERS ENCOUNTER GUARANTOR PAYER SUBSCRIBER SOURCE 01/21/2018 JAYDON QUINTANA916 Primary JAYDON HERRERAB: [place] GARRY Insurance:[facility] [id number] [place] [facility] [address]Dwy: [phone] Number: Repository [phone] () [id number] Date:[id number] [address]AP: 01/21/2018 Secondary NOT GIVENUNK [place] Insurance:SELF PAY [facility] Number: Effective Repository Date:2017-11-03 11/07/2017 JAYDON SWAN6 Primary JAYDON L ENNISDOB: [place] Insurance:[facility] [id number] [place] [facility] [address]Tel: [phone] Number: Repository [phone] () [id number] Date:8112-53-35YU [address] [place] [address]KR: 11/07/2017 Secondary NOT GIVENUNK [place] Insurance:SELF PAY [facility] Number: Effective Repository Date:2017-11-07 09/23/2017 JAYDON L [id number] Primary JAYDON L ENNISDOB: [place] GARRY Insurance:[facility] [id number] [place] [facility] [address]Tel: [phone] Number: Repository [phone] () [id number] Date:6747-64-44YW [address] [address]YP: 09/23/2017 Secondary NOT GIVENUNK [place] Insurance:SELF PAY [facility] Number: Effective Repository Date:2017-09-03 09/23/2017 JAYDON L [id number] Primary JAYDON L ENNISDOB: [place] Insurance:[facility] [id number] [place] [facility] [id number]: [phone] Number: Repository [phone] () [id number] Date:0705-51-99FV [address] [address]AB: 09/23/2017 Secondary NOT GIVENUNK [place] Insurance:SELF PAY [facility] Number: Effective Repository Date:2017-09-23 09/02/2017 JAYDON L [id number] Primary JAYDON L ENNISDOB: [place] G[place]Y Insurance:[facility] [id number] [place] [facility] [id number]: [phone] Number: Repository [phone] () [id number] Date:8099-05-25KO [address] [place] [address]MB: 09/02/2017 Secondary NOT GIVENUNK [place] Insurance:SELF PAY [facility] Number: Effective Repository Date:2017-09-02 08/12/2017 JAYDON QUINTANA916 Primary JAYDON Rueda ENNISDOB: [place] G[place]Y Insurance:[facility] [id number] [place] [facility] [address]Tel: [phone] Number: Repository [phone] () [id number] Date:8129-39-11GF [address] [place] [address]LH: 08/12/2017 Secondary NOT GIVENUNK [place] Insurance:SELF PAY [facility] Number: Effective Repository Date:2017-08-12 07/28/2017 JAYDON QUINTANA916 Primary JAYDON Rueda ENNISDOB: [place] Insurance:[facility] [id number] [place] [facility] [address]Tel: [phone] Number: Repository [phone] () [id number] Date:2989-54-26KS [address] [place] [address]DV: 07/28/2017 Secondary NOT GIVENUNK [place] Insurance:SELF PAY [facility] Number: Effective Repository Date:2017-07-28 07/18/2017 Jaydon Quintana916 Primary Jaydon Rueda EnioanaDOB: [place] Garry Insurance:[facility] [id number] [place] [facility] [address]Tel: [phone] Number: Repository [phone] () [id number] Date:3395-10-14UP [address] [place] [address]SI: 07/18/2017 Secondary NOT GIVENUNK [place] Insurance:SELF PAY [facility] Number: Effective Repository Date:2017-07-18
== END ==
PROVIDERS: Family Provider Family Medicine; PCP Family Medicine; Visit Provider Family Medicine
DX: E11.40 Type 2 diabetes mellitus with diabetic neuropathy, unspecified (principal); E11.65 Type 2 diabetes mellitus with hyperglycemia; D50.9 Iron deficiency anemia, unspecified; E78.5 Hyperlipidemia, unspecified; E66.9 Obesity, unspecified
CPT/HCPCS: 36415; 80053; 82728; 83036; 83540; 85025

== ENCOUNTER → 2018-07-03 12:42 | Outpatient (CLI) | payer MEDICARE, SELFPAY ==
--- NOTE | 2018-07-03 12:46 | RAD_ITS ---
STUDY: X-RAY CHEST REASON FOR EXAM: Male, 67 years old. Cough. TECHNIQUE: PA and lateral views of the chest. COMPARISON: 10/22/2013. FINDINGS: The lungs are clear and expanded. There is no demonstrated pleural abnormality. Sternal cerclage wires are present from a prior sternotomy. The heart size is normal. Normal mediastinum and sho. Normal visualized pulmonary arteries. Normal visualized aortic arch and descending thoracic aorta. There are degenerative changes of the visualized thoracic spine. Normal visualized ribs, clavicles, and shoulders. There is no demonstrated abnormality of the visualized soft tissue structures of the upper abdomen. RAD/Chest PA and Lateral IMPRESSION: No active pulmonary disease. Electronically Signed: Evan Salguero MD at 13:01 EDT Tel , Service support ,
== END ==
PROVIDERS: Family Provider Family Medicine; PCP Family Medicine; Referring Provider Family Medicine; Visit Provider Family Medicine
DX: Z72.0 Tobacco use (principal); R05 Cough
CPT/HCPCS: 71046

== ENCOUNTER → 2018-09-15 | Outpatient (CLI) | payer MEDICARE, SELFPAY ==
--- NOTE | 2018-09-15 13:20 | PFTCOMP_ITS ---
COMPLETE PULMONARY FUNCTION TEST INTERPRETATION Brief HPI: Patient is a 67 year old male, currently under the care of Dr. De Jesus, who presents to [facility] for complete pulmonary function tests secondary to diagnosis of COPD. Respiratory therapist reports good effort and reproducible results. Interpretation: Forced expiration spirometry shows a mild large airways obstructive ventilatory defect with an FEV1 of 73% predicted. There is a significant bronchodilator response in FEV1 by strict ATS criteria. Spirograms are of good quality and plateau slowly, indicating slowly emptying areas of the lungs. The respiratory flow volume loop shows decreased expiratory flow rates at all lung volumes consistent with airway obstruction. Lung volumes by body plethysmography show an elevated total lung capacity at 8.19 L, 121% predicted. FRC and RV are elevated out of proportion. Lung volume measurements are consistent with hyperinflation and air-trapping. Diffusion capacity by carbon monoxide is reduced at 69% predicted. The airway resistance is elevated. No previous pulmonary function tests were available for review. Impression: Partially reversible mild large airways obstructive ventilatory defect with a symmetric reduction in diffusing capacity, resulting in air trapping with hyperinflation, and a pattern consistent with COPD/asthma overlap syndrome.
== END | disposition home or self-care (01) ==
LOC: PSN 07:54
PROVIDERS: Family Provider Family Medicine; PCP Family Medicine; Referring Provider Family Medicine; Visit Provider Family Medicine
DX: J42 Unspecified chronic bronchitis (principal)
CPT/HCPCS: 94060; 94726; 94729

== ENCOUNTER → 2018-11-10 | Outpatient (CLI) | payer MEDICARE, SELFPAY ==
--- NOTE | 2018-11-10 12:58 | RAD_ITS ---
STUDY: X-RAY CHEST REASON FOR EXAM: Male, 68 years old. Cough. TECHNIQUE: Frontal and lateral views of the chest. COMPARISON: 07/03/2018. FINDINGS: The lungs are clear and expanded. There is no demonstrated pleural abnormality. Sternal cerclage wires and vascular clips are present from a prior sternotomy and coronary artery bypass graft procedure (CABG). Normal heart size. Normal mediastinum and sho. Normal visualized pulmonary arteries. Normal visualized aortic arch and descending thoracic aorta. There are diffuse degenerative changes of the visualized thoracic spine. Normal visualized ribs, clavicles, and shoulders. There is no demonstrated abnormality of the visualized soft tissue structures of the upper abdomen. RAD/Chest PA and Lateral IMPRESSION: No acute chest disease. Electronically Signed: Jaguar Tejeda MD at 18:03 EDT , Service support ,
== END | disposition home or self-care (01) ==
LOC: MTRAD 12:56
PROVIDERS: Family Provider Family Medicine; PCP Family Medicine; Referring Provider Family Medicine; Visit Provider Family Medicine
DX: J44.9 Chronic obstructive pulmonary disease, unspecified (principal); R05 Cough
CPT/HCPCS: 71046

== ENCOUNTER → 2018-11-18 | Outpatient (CLI) | payer MEDICARE, SELFPAY ==
--- NOTE | 2018-11-18 07:11 | CT_ITS ---
STUDY: CT CHEST WITH CONTRAST REASON FOR EXAM: Male, 68 years old. Cough and dyspnea. History of NHL with chemotherapy. RADIATION DOSAGE (If Supplied By Facility): CTDIvol = ( 16.69 ) mGy, DLP = ( 708.97 ) mGycm TECHNIQUE: Transaxial imaging was performed following intravenous administration of IV Isovue 300 100CC. Multiplanar coronal and sagittal images were reformatted. Individualized dose optimization techniques were used for this CT. COMPARISON: None. FINDINGS: The lung luu are well expanded. There is a small micronodular infiltrate in the base of the right upper lobe close to the hilum and partially abutting the oblique fissure. There is a more extensive peribronchial infiltrate in the left lower lobe including posterior peripheral nodular infiltrates. Negative for pleural effusion. Normal heart and pericardium. Coronary calcification and stent artifacts. Subcentimeter mediastinal lymph nodes. Subcentimeter hilar lymph nodes. Normal enhanced pulmonary arteries. Mild plaque of the thoracic aorta. Status post prior midline sternotomy. Demineralized osseous structures with degenerative changes. There is no demonstrated abnormality of the visualized upper abdomen. CT/Chest WITH Contrast IMPRESSION: Left lower lobe infiltrates and bronchial thickening consistent with a pneumonic process. Smaller micronodular infiltrate at the base of the right upper lobe. Negative for pleural effusion. Coronary calcification and stent artifacts. Status post prior midline sternotomy. Subcentimeter mediastinal and hilar lymph nodes. Mild atherosclerotic changes of the thoracic aorta. Degenerative changes of the thoracic spine. Electronically Signed: Marta Sellers MD at 17:36 EDT , Service support ,
[2018-11-18 07:20] LABS: CREATININE FINGERSTICK 0.8 mg/dL (0.70-1.30); EGFR FINGERSTICK > 60.0000 mL/min (>60)
== END | disposition home or self-care (01) ==
PROVIDERS: Family Provider Family Medicine; PCP Family Medicine; Referring Provider Family Medicine; Visit Provider Family Medicine
DX: R05 Cough (principal); R06.00 Dyspnea, unspecified
CPT/HCPCS: 71260; Q9967

== ENCOUNTER → 2018-12-25 | Outpatient (CLI) | payer MEDICARE, SELFPAY ==
[2018-12-25 16:02] LABS: Absolute Lymphocyte Count 0.99 X10^3/uL (0.83-4.51); Absolute Neutrophil Count 4.2 X10^3/uL (2.0-7.7); Basophil# 0.04 X10^3/uL; Basophil% 0.6 % (0-1); Eosinophil# 0.17 X10^3/uL; Eosinophils% 2.7 % (0-5); Hematocrit 36.1 % (40-54); Hemoglobin 11.2 g/dL (13.0-16.5); Lymphocyte # 0.99 X10^3/ul (4.0); Lymphocyte % 15.5 % (19-41); Mean Corpuscular Hgb 26.2 pg (27.0-32.0); Mean Corpuscular Volume 84.5 fL (80-94); Mean Platelet Vol. 11.4 fl (6.2-12.0); Monocyte# 0.89 X10^3/uL; NRBC Flagged by Analyzer 0 % (0-5); Neutrophil # 4.24 X10^3/uL (2.7-7.7); Neutrophil % 66.6 % (47-70); POSITIVE MORPHOLOGY YES; Platelet Count 272 K/mm3 (150-450); RBC Distribution Width CV 20.2 % (11.6-14.6); RBC Distribution Width SD 62.9 fl (35.1-43.9); Red Blood Count 4.27 M/mm3 (4.6-6.2); White Blood Count 6.4 K/mm3 (4.4-11.0)
[2018-12-25 16:16] LABS: Differential Indicated SCAN CRITERIA MET
[2018-12-25 16:35] LABS: Ferritin 17 ng/mL (26-388); Iron 123 ug/dL (65-175)
[2018-12-25 16:39] LABS: Vitamin B12 543 pg/mL (211-911)
[2018-12-25 20:29] LABS: Anisocytosis 1+; Ovalocyte 1+; Platelet Estimate ADEQUATE (ADEQ); Red Cell Morphology N CHROM NORMAL (NORM C&C)
== END | disposition home or self-care (01) ==
LOC: LAB.FUTURE 14:20
PROVIDERS: Family Provider Family Medicine; PCP Family Medicine; Visit Provider Family Medicine
DX: D50.9 Iron deficiency anemia, unspecified (principal)
CPT/HCPCS: 36415; 82607; 82728; 83540; 85025

== ENCOUNTER → 2019-01-12 16:22 | Outpatient (CLI) | payer MEDICARE, SELFPAY ==
[2019-01-12 18:16] LABS: Ferritin 16 ng/mL (26-388); Iron Binding Capacity,Total 377 ug/dL (250-450)
== END ==
PROVIDERS: Family Provider Family Medicine; PCP Family Medicine; Referring Provider Internal Medicine Hematology & Oncology; Visit Provider Internal Medicine Hematology & Oncology
DX: D50.0 Iron deficiency anemia secondary to blood loss (chronic) (principal); K90.9 Intestinal malabsorption, unspecified
CPT/HCPCS: 82728; 83550

== ENCOUNTER → 2019-01-13 13:22 | Outpatient (CLI) | payer MEDICARE, SELFPAY ==
--- NOTE | 2019-01-13 13:27 | CT_ITS ---
STUDY: CT CHEST WITHOUT CONTRAST REASON FOR EXAM: Male, 68 years old. Follow-up pneumonia RADIATION DOSAGE (If Supplied By Facility): CTDIvol = ( 19.48 ) mGy, DLP = ( 759.37 ) mGycm TECHNIQUE: Transaxial imaging was performed without the administration of intravenous contrast material. Individualized dose optimization techniques were used for this CT. COMPARISON: Previous study of 11/18/2018 FINDINGS: There is a small pleural-based density of the lateral left upper lobe measuring 1.1 x 0.7 cm , new in the interval. There has been complete interval resolution of additional infiltrates/pulmonic density seen on the previous study. There is no demonstrated pleural abnormality. The heart size is within normal limits. Coronary arterial and valvular calcifications are present. Normal mediastinum. Hilar areas are difficult to assess on this noncontrast study. There is no obvious hilar mass or adenopathy. There is mild dilatation of the main pulmonary artery measuring up to 3.2 cm in diameter. There are calcified plaques of the thoracic aorta. There is diffuse endplate spondylosis of the visualized thoracolumbar spine. Status post sternotomy changes are noted. Cholelithiasis is noted. There is a right renal cyst. CT/Chest without Contrast IMPRESSION: 1. There is a new small pleural-based density of the lateral left upper lobe measuring 1.1 x 0.7 cm. There has been complete interval resolution of additional infiltrates/pulmonic densities seen on the previous study. 2. Coronary arterial and valvular calcifications are present. 3. There is mild dilatation of the main pulmonary artery measuring up to 3.2 cm in diameter. This may be associated with pulmonary hypertension. Electronically Signed: Meet Antonio MD at 22:30 EST , Service support ,
== END ==
PROVIDERS: Family Provider Family Medicine; PCP Family Medicine; Referring Provider Family Medicine; Visit Provider Family Medicine
DX: J18.9 Pneumonia, unspecified organism (principal)
CPT/HCPCS: 71250

== ENCOUNTER → 2019-02-11 13:08 | Outpatient (CLI) | payer MEDICARE, SELFPAY ==
--- NOTE | 2019-02-11 13:12 | RAD_ITS ---
STUDY: SWALLOWING STUDY REASON FOR EXAM: Male, 68 years old. Dysphagia. TECHNIQUE: The examination was performed with Speech Pathology in attendance. Under fluoroscopic observation, the patient ingested thin barium, thick barium, barium pudding, and barium coated cracker. FLUOROSCOPY TIME: 1:57 minutes/seconds. 1820 images were obtained. RADIOLOGIST INVOLVEMENT: Radiologist was present and providing direct supervision. COMPARISON: None. FINDINGS: The following was observed during swallowing of the various mixtures of barium: Thin Barium: Transient penetration with ingestion of thin liquids. This resolves with the chin tuck maneuver. Thick Barium: Intermittent penetration with ingestion of nectar thickened liquids. Barium Pudding: There was no evidence of aspiration or laryngeal penetration. Barium Coated Cracker: There was no evidence of aspiration or laryngeal penetration. RAD/Swallowing Function w/Video IMPRESSION: Intermittent penetration and evacuation with ingestion of thin liquids and nectar thickened liquids. This resolves with the chin tuck maneuver. The swallow study findings were discussed with the patient by the speech pathologist at the conclusion of the examination. Please see speech pathology report for more information and recommendations. Electronically Signed: Brett Fontanez, at 15:10 EST , Service support ,
--- NOTE | 2019-02-11 14:40 | SP.MBSS_ITS ---
PRIMARY / SECONDARY DIAGNOSIS: dysphagia REFERRING PHYSICIAN: Dr. Marco Miller CURRENT DIET: Regular Textures/ Thin Liquids DENTITION: upper dentures, endentulous on bottom MENTAL STATUS: WFL for assessment RESPIRATORY STATUS: O2 via room air PREVIOUS MODIFIED BARIUM SWALLOW STUDY: Patient reports having one done in [place] in 2011 after hospitalization. REASON FOR REFERRAL: Patient referred for MBS study by Dr. Miller due to pockets in throat per patient report that are thought to be contributing to coughing episodes. MEDICAL HISTORY: The patient is a 68/m with past medical history significant for CAD, Hodgkins disease, RA, DM2, hyperlipidemia, heart artery stent, and cellulitis. STUDY FINDINGS: Patient participated in a Modified Barium Swallow (MBS) study on . Dr. Fontanez was the radiologist present for this evaluation. This study was recorded in the lateral view and images were sent to PACs for storage. The following consistencies were presented to this patient for analysisof oropharyngeal swallow function: thin liquid, nectar thick liquids, pudding, and a regular textured, Loree Doone cookie. Results of the MBS are as follows: PENETRATION / ASPIRATION SCALE (BROOKS): 1 = does not enter airway 2 = enters airway/above vocal folds/ejected 3 = enters airway/above vocal folds/not ejected 4 = enters airway/contacts vocal folds/ejected 5 = enters airway/contacts vocal folds/not ejected 6 = enters airway/below vocal folds/ejected 7 = enters airway/below vocal folds/not ejected despite effort 8 = enters airway/below vocal folds/no effort PENETRATION / ASPIRATION SCALE (SCORE): 1) Thin liquids via tsp = 1 2) Thin liquids via tsp = 1 3) Thin liquids via small single sip from cup = 1 4) Thin liquids via large single sip from cup = 2 5) Thin liquids via sequential sips via cup = 3 *ejected only after multiple swallows 6) [place] thick liquids via large single sip from cup = 2 7) pudding = 1 8) cookie = 1 9) Thin liquids via sequential sips from cup = 1 IMPRESSION: Mild oropharyngeal dysphagia (R13.12) ORAL PHASE CHARACTERIZED BY: LABIAL SEAL: no labial escape TONGUE CONTROL DURING BOLUS MANIPULATION: posterior escape of less than half of bolus BOLUS PREPARATION / MASTICATION: slow prolonged chewing/mashing with complete recollection BOLUS TRANSPORT / LINGUAL MOTION: brisk tongue motion ORAL RESIDUE: trace residue lining oral structures PHARYNGEAL PHASE CHARACTERIZED BY: INITIATION OF PHARYNGEAL SWALLOW: bolus head in pyriforms at first hyoid excursion SOFT PALATE ELEVATION: no bolus between soft palate and pharyngeal wall LARYNGEAL ELEVATION: partial superior movement of thyroid cartilage/partial approximation of arytenoids cartilage to epiglottic petiole ANTERIOR HYOID EXCURSION: partial anterior movement EPIGLOTTIC MOVEMENT: complete epiglottic inversion LARYNGEAL VESTIBULE CLOSURE AT HEIGHT OF SWALLOW: incomplete laryngeal vestibule closure with narrow column of air/contrast in laryngeal vestibule PHARYNGEAL STRIPPING WAVE: pharyngeal stripping wave present / complete PHARYNGOESOPHAGEAL SEGMENT OPENING: partial distension and partial duration; partial obstruction of flow TONGUE BASE RETRACTION:trace column of contrast between tongue base and posterior pharyngeal wall PHARYNGEAL RESIDUE: collection of residue within or on pharyngeal structures ESOPHAGEAL PHASE CHARACTERIZED BY: ESOPHAGEAL BOLUS CLEARANCE IN THE UPRIGHT POSITION: could not view INTERPRETATION OF RESULTS: Patient presents with mild oropharyngeal dysphagia. Oral phase primarily marked by prolonged chewing of Loree Doone shortbread cookie with mild-mod oral residue remaining after deglutition. Pharyngeal phase primarily marked by delayed pharyngeal swallow onset timing resulting in suboptimal bolus location upon swallow onset contributing to penetration above the vocal cords with larger and sequential sips of thin liquids and nectar thick liquids. No penetration or aspiration found when taking small sips. Pharyngeal residue in moderate amounts noted within the valleculae requiring second, effortful swallow to clear. When not using second swallow, pharyngeal residue continued to build within the valleculae placing the patient at high risk of aspiration. Reduced closure of the airway during deglutition attributed to reduced laryngeal elevation and anterior hyoid excursion resulting in poor laryngeal vestibule closure / pressure. DIET TEXTURE RECOMMENDATIONS: Will recommend a regular textured, thin liquid diet. COMPENSATORY STRATEGIES RECOMMENDED: Will recommend small bites and sips, slow rate of intake, a double or second swallow with every bite and/or sip, seated upright at 90 degrees during PO intake, and remain upright for 30-60 minutes post meal (GERD precaution). RECOMMENDATIONS: Patient able to comprehend and express recommended intake precautions detailed above with sufficient detail to suggest high likelihood of compliance. Provided brief overview of signs and symptoms of aspiration, with recommendations for the patient to further discuss symptoms with PCP and ENT. No further skilled speech-language services warranted at this time targeting dysphagia. IMAGE COUNT: [id number] Cony Ha M.A., [facility] [employer] VICE PRESIDENT Speech Language Pathologist [facility] [address] [place] [address] [email or web address] [phone]
== END ==
PROVIDERS: Family Provider Family Medicine; PCP Family Medicine; Referring Provider Otolaryngology; Visit Provider Otolaryngology
DX: R13.10 Dysphagia, unspecified (principal)
CPT/HCPCS: 74230; 92611

== ENCOUNTER → 2019-03-31 17:30 | Outpatient (CLI) | payer MEDICARE, SELFPAY ==
[2019-03-16 08:19] VITALS: BMI 34.9
--- NOTE | 2019-03-31 17:31 | CT_ITS ---
STUDY: CT CHEST WITH CONTRAST REASON FOR EXAM: Male, 68 years old. FOLLOW UP LUNG NODULE RADIATION DOSAGE (If Supplied By Facility): CTDIvol = ( 18.09 ) mGy, DLP = ( 726.67 ) mGycm TECHNIQUE: Transaxial imaging was performed following intravenous administration of IV 100mL Isovue-300. Multiplanar coronal and sagittal images were reformatted. Individualized dose optimization techniques were used for this CT. COMPARISON: 01/13/2019 FINDINGS: The subpleural nodule in the lateral left upper lobe evident on the prior study (image 29 of the prior study) is NO longer identified. No discrete pulmonary nodule or mass identified on the current exam. There is no demonstrated pleural abnormality. Normal heart and pericardium. There are calcifications of the coronary arteries. Normal mediastinum. Normal hilar regions. Normal enhanced pulmonary arteries. There is atherosclerotic calcification of the aortic arch with tortuosity and elongation of the aortic arch and descending thoracic aorta. There are multi-level degenerative changes of the thoracic spine. There is an old right rib fracture. There is no demonstrated abnormality of the visualized upper abdomen. CT/Chest WITH Contrast IMPRESSION: 1. Resolution of lateral left upper lobe nodule evident on the prior study. No pulmonary nodule or mass on the current exam. Electronically Signed: Manuel Vo MD ([place]) at 13:32 EST , Service support ,
[2019-03-31 17:50] LABS: CREATININE FINGERSTICK 0.8 mg/dL (0.70-1.30)
== END ==
LOC: CT 17:31
PROVIDERS: PCP Family Medicine; Referring Provider Internal Medicine Critical Care Medicine; Visit Provider Internal Medicine Critical Care Medicine
DX: R91.1 Solitary pulmonary nodule (principal)
CPT/HCPCS: 71260; Q9967

== ENCOUNTER 2019-05-14 11:00 | Outpatient (RCR) | payer MEDICARE, SELFPAY ==
[2019-03-16 08:19] VITALS: BMI 34.9
--- NOTE | 2019-04-16 11:00 | SOAP_ITS ---
REASON FOR REFERRAL: The Patient is a 68 year old male referred for a clinical assessment of the swallow function at [facility] on 04/16/2019 due to persistent post prandial coughing following ingestion of thin liquids. The Patient reports intermittent post prandial coughing over the past 6-12 months with no change in frequency or intensity, with occasional coughing that is not associated with intake (though this is much less frequent). He reports initial allergy centered treatments targeting his persistent coughing were overall unsuccessful, with his piece meat trimmer later removing him from his treatment regiment, with workup suggesting an aspiration component. He denies sensations of bolus status or nasopharyngeal reflux. He denies any unintentional weight loss, changes in appetite, or early satiety; further denies any issues with nausea or emesis. He reports persistent post chemotherapy xerostomia (dry mouth) since receiving treatment for non-Hodgkin?s lymphoma in 2001. He denies issues with diurnal sialorrhea (drooling during the daytime), odynophagia (pain during swallow), symptoms of trismus, hypogeusia (reduced taste), dysgeusia (abnormal / unpleasant taste), or hyposmia (reduced smell). He denies symptoms of trismus. He denies any issues with reflux / heartburn, globus sensation, or substernal discomfort. He denies suboptimal intake behaviors (tachyphagia, bolus bolting, or aerophagia). He denies suboptimal intake patterns, to include bolus ?bolting? (rapid ingestion without complete mastication), tachyphagia (rapid ingestion), or aerophagia (swallowing air). He does report recent treatment for pneumonia (~3 months prior), though denies any further issues with aspiration related pulmonary complications, to include pneumonia, bronchitis, or unexplained asthma symptoms. He is an active smoker, though has tried to cut back from 1 pack per day to 3-5 cigarettes per day. He appears cognitively intact, affect appears appropriate. The Patient denies any vocal changes. The Patient is fully ambulatory, demonstrates no difficulties with posture maintenance, and appears well nourished. He is independent for all ADLs and IADLs, and is a community drive. 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 MEDICAL HISTORY: Non-Hodgkin lymphoma, lung nodule, pneumonia, bronchitis, allergic rhinitis, chronic tobacco abuse, rheumatoid arthritis, coronary artery disease, status post stent placement, hypertension, hyperlipidemia, type II diabetes mellitus, gastritis, obesity. PREVIOUS MODIFIED BARIUM SWALLOW STUDY: 02/11/2019 MBS revealed mild oropharyngeal dysphagia with shallow penetration and inconsistent complete ejection during ingestion of thin liquids ADDITIONAL OBJECTIVE ASSESSMENT RESULTS: 03/31/[address] revealed resolution of lateral left upper lobe nodule evident on the prior study; no pulmonary nodule or mass on the current exam. 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 FUNCTIONAL STATUS ASSESSMENT RESULTS: Thorne Index of [place] in Activities of Daily Livin/6 Bathin Dressin Toiletin Transferrin Continence: 1 Feedin [place] ? [place]ight Instrumental Activities of Daily Living Scale (IADL): 8/8 Ability to Use Telephone: 1 Shoppin Food Preparation: 1 Housekeepin Laundry: 1 Mode of Transportation: 1 Responsibility for Own Medications: 1 Ability to Handle Finances: 1 Functional Ambulation Category (FAC): 5 (ambulator- independent) ORAL MOTOR / MODIFIED CRANIAL NERVE ASSESSMENT: CNV, VII, IX, X, and XII appear grossly intact. Upper dentures in place, adequate fit; edentulous lower status (has lower dentures, do not fit well). Mild xerostomia; no issues with diurnal sialorrhea. Appropriate volitional cough intensity. No reported or identified signs or symptoms of trismus. SUPPLEMENTARY DYSPHAGIA ASSESSMENT RESULTS: Reflux Symptom Index (RSI): 19 (>13 may indicate significant reflux) [facility] Xerostomia Questionnaire: Sialorrhea Scoring Scale (SSS): 1/9 (dry, never drools) Eating Assessment Tool ? 10 (EAT-10): 5 (3+ may represent dysphagia) CLINICAL ASSESSMENT OF SWALLOW FUNCTION (QUANTITATIVE): Repetitive Saliva Swallowing Test (RSST): pass; > 2 dry swallows within 30 seconds. 1oz Water Swallowing Test (1oz WST): normal ? 1 (of 5); single swallow without coughing 3oz Water Swallow Test (3oz WST): abnormal; stopping and starting Mendoza 6 Factors: moderate to severe (2 or more clinical predictors) Dysphonia: negative Dysarthria: negative Abnormal gag response: negative Abnormal volitional cough: negative Cough after swallowing: positive Post prandial coughing: positive Voice changes after swallow: negative Post prandial voice change: negative Bradford Assessment of Swallowing Ability (MASA): 188 (no abnormality detected) MASA Aspiration Severity Score: 188 (no abnormality detected) MASA Dysphagia Risk Rating: Probable; moderate evidence for disorder Swallowing Performance Scale (SPS): 3 (mild) CLINICAL ASSESSMENT OF SWALLOW FUNCTION (QUALITATIVE): ORAL PREPARATORY PHASE: slightly prolonged mastication attributed to lower edentulous status; sufficient anterior oral containment during manipulation; preserved management of breathing / bolus formation; without disrupted E ? S ? E pattern. ORAL TRANSITIONAL PHASE: no signs of transitional incompetence; no signs of bolus consolidation impairments; premature posterior bolus loss visualized upon personal review of videofluoroscopic images, with this finding likely a prime contributing factor regarding his reported symptomology. PHARYNGEAL PHASE: videofluoroscopic examination images were personally reviewed, with mild reduction in anterior hyoid excursion under fluoroscopy contributing to reduced laryngeal vestibule valving and consistent pressure to facilitate complete ejection; furthermore he demonstrated pharyngeal dysmotility with a Bolus Residue Scale score of 6 (of 6) following ingestion of semisolid and solid textures, with post prandial residue within the valleculae, along the posterior pharyngeal wall, and within the piriform sinus due to a combination of generalized reduction in pharyngeal constriction (both posterior pharyngeal constrictors and with the lingual base) and a lack of full epiglottic deflection; no objective or subjective findings suggesting velopharyngeal impairments; prandial coughing following ingestion of thin liquids with neutral head placement / throat clearing (ameliorated with execution of the chin tuck posture during ingestion via straw); no further signs or symptoms of penetration / aspiration throughout trials. ESOPHAGEAL PHASE: esophageal phase appears unremarkable; though noted high RSI score reported (19) RESULTS OF THE EVALUATION: The Patient presents with mild oral dysphagia (SPS:3) with shallow penetration and incomplete ejection during liquid ingestion. RECOMMENDATIONS FOR INTERVENTION: The Patient requires intensive skilled speech-language intervention targeting continued diet texture management; training and implementation of recommended compensatory strategies (chin tuck posture); training and implementation of recommended oropharyngeal strengthening exercises to facilitate improved oropharyngeal strength and coordination (pharyngeal constriction and anterior hyoid excursion). POST ASSESSMENT EDUCATION: The results and recommendations were discussed with the Patient immediately following assessment completion, with the Patient verbalizing understanding and agreement with all recommendations and education provided. We discussed factors impacting effects of aspiration, to include: the quantity of aspiration, the depth of aspiration (trachea or distal airways), and the physical properties of the aspirate. We discussed consequences of oropharyngeal dysphagia, to include pulmonary complications from tracheobronchial aspiration; potential for airway obstruction / asphyxiation; reduced liquid intake resulting in dehydration; reduced caloric intake resulting in unintentional and potentially medically complicating loss of weight; and complications in overall course of care. DIET TEXTURE RECOMMENDATIONS: Will recommend a regular ? soft textured (IDDSI: 6), thin liquid diet (IDDSI: 0) diet RECOMMENDED COMPENSATORY STRATEGIES: Execution of the chin tuck posture with use of straw, reduced bolus volume / rate of ingestion, seated upright at 90 degrees during PO intake, remain upright for 30-60 minutes post meal (GERD precaution), medications one at a time with a liquid chaser. FUNCTIONAL OUTCOMES: OUTCOME 1: the Patient will tolerate the least restrictive means of nutrition to facilitate adequate hydration / nutrition with optimum safety and efficiency of swallowing function during P.O. intake without overt signs and symptoms of aspiration. OUTCOME 2: the Patient will execute recommended compensatory intake strategies during PO intake to facilitate optimal intake safety and efficiency with minimal cueing across 3 consecutive sessions. OUTCOME 3: the Patient will demonstrate and utilize recommended oropharyngeal strengthening exercises to facilitate improved pharyngeal contraction and hyolaryngeal excursion, with minimal cueing and prompting provide by the clinician, across 2 out of 3 sessions. OUTCOME 4: the Patient will participate in a repeat Modified Barium Swallow (MBS) study to objectively assess the Patient?s oropharyngeal swallowing function, to determine the least restrictive means of nutrition, to objectively assess the effectiveness of previously identified strategies / precautions, and to identify appropriate intervention approaches / strategies to implement during treatment sessions at the supervised level. OUTCOME 5: goal adjustment as needed Champ Melo M.A., CCC-TUB TENDER, CBIS MBSImP Certified, LSVT Certified [facility] Speech-Language Pathology Department
== END 2019-05-14 17:00 | disposition home or self-care (01) ==
LOC: SP 11:00
PROVIDERS: PCP Family Medicine; Referring Provider Otolaryngology; Visit Provider Otolaryngology
DX: R13.12 Dysphagia, oropharyngeal phase (principal)
CPT/HCPCS: 92526; 92610

== ENCOUNTER → 2019-08-13 | Outpatient (CLI) | payer MEDICARE, SELFPAY ==
[2019-04-27 14:49] VITALS: BMI 35.3
[2019-08-13 15:22] LABS: Absolute Lymphocyte Count 0.93 X10^3/uL (0.83-4.51); Absolute Neutrophil Count 4.6 X10^3/uL (2.0-7.7); Basophil# 0.05 X10^3/uL; Basophil% 0.8 % (0-1); Eosinophil# 0.24 X10^3/uL; Eosinophils% 3.6 % (0-5); Hematocrit 36.5 % (40-54); Hemoglobin 11.8 g/dL (13.0-16.5); Lymphocyte # 0.93 X10^3/ul (4.0); Mean Corp Hgb Conc 32.3 g/dL (32-36); Mean Corpuscular Volume 92.9 fL (80-94); Mean Platelet Vol. 11.5 fl (6.2-12.0); Monocyte% 12.1 % (0-10); NRBC Flagged by Analyzer 0 % (0-5); Neutrophil # 4.55 X10^3/uL (2.7-7.7); Neutrophil % 68.6 % (47-70); Platelet Count 247 K/mm3 (150-450); RBC Distribution Width SD 47.2 fl (35.1-43.9); Red Blood Count 3.93 M/mm3 (4.6-6.2); White Blood Count 6.6 K/mm3 (4.4-11.0)
[2019-08-13 15:44] LABS: Ferritin 29 ng/mL (26-388); Iron 70 ug/dL (65-175)
== END | disposition home or self-care (01) ==
LOC: BFHLAB 11:58
PROVIDERS: PCP Family Medicine; Visit Provider Family Medicine
DX: E11.40 Type 2 diabetes mellitus with diabetic neuropathy, unspecified (principal); E11.65 Type 2 diabetes mellitus with hyperglycemia; D50.9 Iron deficiency anemia, unspecified
CPT/HCPCS: 36415; 82728; 83036; 83540; 85025

== ENCOUNTER → 2019-09-06 | Outpatient (CLI) | payer MEDICARE, SELFPAY ==
[2019-04-27 14:49] VITALS: BMI 35.3
--- NOTE | 2019-09-06 10:50 | ECHOCS_ITS ---
Reason For Study: Murmur Procedure This was a 2D Doppler, Color Flow transthoracic echocardiogram. The study was technically difficult. Exam performed in department. Left Ventricle Normal LV size. Mild concentric left ventricular hypertrophy. Left ventricular systolic function is normal. The estimated ejection fraction is 55 %. No regional wall motion abnormalities noted. Right Ventricle Normal RV size. Normal systolic function. Atria Normal left atrium. Normal right atrium. Mitral Valve Mitral valve not well visualized. Tricuspid Valve Normal tricuspid valve. Unable to estimate RV systolic pressure due to insufficient tricuspid regurgitant envelope. Aortic Valve Trisinus/trileaflet aortic valve. Pulmonic Valve Normal pulmonic valve. Great Vessels Normal aortic root. The pulmonary artery is normal size. Normal inferior vena cava. Pericardium/Pleural No pericardial effusion. Medication 22 gauge I.V. with prn adaptor inserted into right arm. Diluted definity 2ml given slow IV push to enhance endocardial definition. MMode/2D Measurements & Calculations LVIDd: 4.6 cm IVSd: 1.3 cm Ao root diam: 3.5 cm LVIDs: 2.7 cm LVPWd: 1.4 cm RVDd: 3.2 cm FS: 41.2 % LAV(MOD-bp): 46.6 ml LA A4 area: 13.9 cm2 LA dimension(2D): 3.6 cm LAV(MOD-bp) Indexed: 20.3 ml/m2 LAV(MOD-sp2): 59.0 ml LAV(MOD-sp4): 34.4 ml RA A4 area: 15.8 cm2 Doppler Measurements & Calculations MV A max oliver: 110.4 cm/sec Lat Peak E' Oliver: 7.3 cm/sec Med Peak E' Oliver: 7.5 cm/sec Ao V2 max: 194.1 cm/sec LV V1 max: 100.5 cm/sec PA V2 max: 108.1 cm/sec Ao max P.1 mmHg LV V1 max P.0 mmHg Ao V2 mean: 127.4 cm/sec LV V1 mean P.1 mmHg Ao mean P.3 mmHg LV V1 mean: 68.4 cm/sec Ao V2 VTI: 38.0 cm LV V1 VTI: 21.4 cm Interpretation Summary Normal LV size. Left ventricular systolic function is normal. Mild concentric left ventricular hypertrophy. The estimated ejection fraction is 55 %. Contrast injection was performed. Ordering Physician: Sissy Ramirez Referring Physician: Sissy Ramirez Performed By: Bijal Mahajan RDCS
== END | disposition home or self-care (01) ==
LOC: CVS 10:47
PROVIDERS: PCP Family Medicine; Referring Provider Family Medicine; Visit Provider Family Medicine
DX: R01.1 Cardiac murmur, unspecified (principal)
CPT/HCPCS: 93306; Q9957; A4216; C8929

== ENCOUNTER → 2019-11-29 | Outpatient (CLI) | payer MEDICARE, SELFPAY ==
[2019-09-28 13:57] VITALS: BMI 34.9
== END | disposition home or self-care (01) ==
LOC: BFHLAB 13:35
PROVIDERS: PCP Family Medicine; Visit Provider Family Medicine
DX: Z20.828 Contact with and (suspected) exposure to other viral communicable diseases (principal)

== ENCOUNTER → 2019-12-27 11:27 | Outpatient (CLI) | payer MEDICARE, SELFPAY ==
[2019-12-27 10:24] VITALS: BMI 36.4
[2019-12-27 12:38] LABS: Absolute Lymphocyte Count 1.18 X10^3/uL (0.83-4.51); Absolute Neutrophil Count 5.3 X10^3/uL (2.0-7.7); Basophil# 0.06 X10^3/uL; Basophil% 0.8 % (0-1); Eosinophil# 0.17 X10^3/uL; Eosinophils% 2.2 % (0-5); Hematocrit 38.6 % (40-54); Hemoglobin 12.6 g/dL (13.0-16.5); Lymphocyte # 1.18 X10^3/ul (4.0); Lymphocyte % 15.2 % (19-41); Mean Corp Hgb Conc 32.6 g/dL (32-36); Mean Corpuscular Hgb 29.9 pg (27.0-32.0); Mean Corpuscular Volume 91.7 fL (80-94); Mean Platelet Vol. 11.2 fl (6.2-12.0); Monocyte# 0.98 X10^3/uL; Monocyte% 12.6 % (0-10); NRBC Flagged by Analyzer 0 % (0-5); Neutrophil # 5.31 X10^3/uL (2.7-7.7); Neutrophil % 68.3 % (47-70); Platelet Count 259 K/mm3 (150-450); RBC Distribution Width SD 46.7 fl (35.1-43.9); Red Blood Count 4.21 M/mm3 (4.6-6.2); White Blood Count 7.8 K/mm3 (4.4-11.0)
[2019-12-27 12:54] LABS: Hemoglobin A1c 9.2 % (3.8-5.6)
[2019-12-27 13:21] LABS: ALB/GLOB Ratio 1.1 RATIO (0.9-2.4); AST(SGOT) 14 U/L (15-37); Alanine Aminotransfer ALT/SGPT 26 U/L (16-61); Albumin, Serum 3.7 g/dL (3.2-5.0); Alkaline Phosphatase 90 U/L (45-117); Anion Gap 9 (5-15); BUN 20 mg/dL (7-18); BUN/Creat Ratio 22.6 RATIO (10-20); Calcium,Total 9.5 mg/dL (8.5-10.1); Chloride 106 mmol/L (98-107); Cholesterol 122 mg/dL (200); Creatinine, Serum 0.88 mg/dL (0.70-1.30); EST Glomerular Filtration Rate 90 mL/min (>60); Est Glom Filt Rate - Afr Amer 109 mL/min (>60); Globulin 3.3 g/dL (2.2-4.2); Glucose 225 mg/dL (74-106); High Density Lipoprotein 38 mg/dL; PSA,Total - Annual Screen 0.86 ng/mL (0.00-4.00); Potassium 4.7 mmol/L (3.5-5.1); Sodium Level 139 mmol/L (136-145); Thyroid Stim Hormone (TSH) 1.32 uIU/mL (0.358-3.74); Triglycerides 180 mg/dL; Very Low Density Lipoprotein 36 mg/dL (5-40)
== END ==
PROVIDERS: PCP Internal Medicine; Referring Provider Internal Medicine; Visit Provider Internal Medicine
DX: E66.9 Obesity, unspecified (principal); E78.5 Hyperlipidemia, unspecified; Z12.5 Encounter for screening for malignant neoplasm of prostate; Z72.0 Tobacco use; Z85.72 Personal history of non-Hodgkin lymphomas; Z86.39 Personal history of other endocrine, nutritional and metabolic disease
CPT/HCPCS: 36415; 80053; 80061; 83036; 84153; 84443; 85025; G0103

== ENCOUNTER → 2020-06-23 10:31 | Outpatient (CLI) | payer MEDICARE, SELFPAY ==
[2020-06-22 10:34] VITALS: BMI 35.1
--- NOTE | 2020-06-23 11:58 | RAD_ITS ---
HISTORY: cough, shortness of breath, COVID Negative EXAM: XR Chest 2 Views: COMPARISON: November 10, 2018 chest x-ray, and a chest CT from March 31, 2019. FINDINGS: # of images incl. paperwork: 2 Sternal wires persists. Calcific plaque within the aortic arch persists. New indistinctness to the right hemidiaphragm and the right lateral costophrenic sulcus. Heart is not enlarged. No acute osseous pathology perceived. Pulmonary vascularity is distinct. Small right pleural effusions. RAD/Chest PA and Lateral IMPRESSION: New right lower lobe airspace disease and small right pleural effusion suggestive of pneumonia in the right lower lobe. at 2227 Reported and signed by: Weston Smith MD Electronically Signed: Weston Smith MD at 22:26 EDT Tel , Service support ,
[2020-06-23 12:32] LABS: Erythrocyte Sedimentation Rate 18 mm/hr (0-20)
[2020-06-23 12:39] LABS: Absolute Lymphocyte Count 0.97 X10^3/uL (0.83-4.51); Absolute Neutrophil Count 9.9 X10^3/uL (2.0-7.7); Basophil# 0.05 X10^3/uL; Basophil% 0.4 % (0-1); Eosinophil# 0.21 X10^3/uL; Eosinophils% 1.6 % (0-5); Hematocrit 33.8 % (40-54); Hemoglobin 10.2 g/dL (13.0-16.5); Lymphocyte # 0.97 X10^3/ul (0.83-4.51); Lymphocyte % 7.6 % (19-41); Mean Corp Hgb Conc 30.2 g/dL (32-36); Mean Corpuscular Hgb 25.6 pg (27.0-32.0); Mean Corpuscular Volume 84.9 fL (80-94); Mean Platelet Vol. 10.9 fl (6.2-12.0); Monocyte# 1.61 X10^3/uL; Monocyte% 12.6 % (0-10); NRBC Flagged by Analyzer 0 % (0-5); Neutrophil # 9.89 X10^3/uL (2.7-7.7); Neutrophil % 77.2 % (47-70); POSITIVE DIFFERENTIAL YES; Platelet Count 363 K/mm3 (150-450); RBC Distribution Width CV 14.6 % (11.6-14.6); RBC Distribution Width SD 45.1 fl (35.1-43.9); Red Blood Count 3.98 M/mm3 (4.6-6.2); White Blood Count 12.8 K/mm3 (4.4-11.0)
[2020-06-23 12:43] LABS: Differential Indicated SCAN CRITERIA MET
[2020-06-23 12:45] LABS: Vitamin D,25 Hydroxy 17.7 ng/mL
[2020-06-23 12:54] LABS: ALB/GLOB Ratio 0.8 RATIO (0.9-2.4); AST(SGOT) 13 U/L (15-37); Alanine Aminotransfer ALT/SGPT 22 U/L (16-61); Albumin, Serum 3.1 g/dL (3.2-5.0); Alkaline Phosphatase 67 U/L (45-117); Anion Gap 5 (5-15); BUN 13 mg/dL (7-18); Calcium,Total 8.9 mg/dL (8.5-10.1); Chloride 105 mmol/L (98-107); Creatinine, Serum 0.81 mg/dL (0.70-1.30); EST Glomerular Filtration Rate 100 mL/min (>60); Est Glom Filt Rate - Afr Amer 120 mL/min (>60); Globulin 3.8 g/dL (2.2-4.2); Glucose 146 mg/dL (74-106); Potassium 4.5 mmol/L (3.5-5.1); Protein, Total 6.9 g/dL (6.4-8.2); Sodium Level 137 mmol/L (136-145); Thyroid Stim Hormone (TSH) 0.31 uIU/mL (0.358-3.74)
[2020-06-23 14:12] LABS: Free T3 1.9 pg/mL (2.18-3.98); T4 Free Direct 1.41 ng/dL (0.76-1.46)
[2020-06-26 13:35] LABS: Pathologist Review Reviewed
== END ==
LOC: BIMLAB 10:31 → MTRAD 11:57
PROVIDERS: PCP Internal Medicine; Referring Provider Internal Medicine; Visit Provider Physician Assistant
DX: C85.90 Non-Hodgkin lymphoma, unspecified, unspecified site (principal); R43.2 Parageusia; R53.83 Other fatigue; E55.9 Vitamin D deficiency, unspecified; R79.89 Other specified abnormal findings of blood chemistry; J06.9 Acute upper respiratory infection, unspecified; J42 Unspecified chronic bronchitis; J45.909 Unspecified asthma, uncomplicated; Z72.0 Tobacco use; Z86.39 Personal history of other endocrine, nutritional and metabolic disease
CPT/HCPCS: 36415; 71046; 80053; 82306; 84439; 84443; 84481; 85025; 85652; 86140

== ENCOUNTER → 2020-07-17 18:38 | Outpatient (CLI) | payer MEDICARE, SELFPAY ==
[2020-04-03 13:08] VITALS: BMI 35.1
[2020-07-17 11:41] VITALS: BMI 33.5
--- NOTE | 2020-07-17 13:09 | RAD_ITS ---
STUDY: X-RAY CHEST REASON FOR EXAM: Male, 69 years old. rll pneumonia TECHNIQUE: PA and lateral views of the chest. COMPARISON: June 23, 2020 chest x-ray FINDINGS: Improving aeration of the right lower lobe with minimal blunting of the right costophrenic angle. Sternal cerclage wires are present from a prior sternotomy. Normal mediastinum and sho. Normal visualized pulmonary arteries. There is atherosclerotic calcification of the aortic arch with tortuosity. There are diffuse degenerative changes of the visualized thoracic spine. Normal visualized ribs, clavicles, and shoulders. There is no demonstrated abnormality of the visualized soft tissue structures of the upper abdomen. RAD/Chest PA and Lateral IMPRESSION: Improvement in the right lower lobe infiltrates possible trace residual scarring or fluid within the right lung base. Electronically Signed: Indu Brand MD at 7:57 EDT Tel , Service support ,
[2020-07-17 15:17] LABS: Absolute Lymphocyte Count 0.92 X10^3/uL (0.83-4.51); Absolute Neutrophil Count 4.1 X10^3/uL (2.0-7.7); Basophil# 0.04 X10^3/uL; Basophil% 0.6 % (0-1); Eosinophil# 0.25 X10^3/uL; Eosinophils% 3.9 % (0-5); Hematocrit 32.6 % (40-54); Hemoglobin 9.7 g/dL (13.0-16.5); Lymphocyte # 0.92 X10^3/ul (0.83-4.51); Lymphocyte % 14.3 % (19-41); Mean Corp Hgb Conc 29.8 g/dL (32-36); Mean Corpuscular Hgb 25.8 pg (27.0-32.0); Mean Corpuscular Volume 86.7 fL (80-94); Mean Platelet Vol. 11.1 fl (6.2-12.0); Monocyte# 1.03 X10^3/uL; NRBC Flagged by Analyzer 0 % (0-5); Neutrophil # 4.09 X10^3/uL (2.7-7.7); Neutrophil % 63.8 % (47-70); Platelet Count 299 K/mm3 (150-450); RBC Distribution Width CV 16.6 % (11.6-14.6); RBC Distribution Width SD 51.8 fl (35.1-43.9); Red Blood Count 3.76 M/mm3 (4.6-6.2); White Blood Count 6.4 K/mm3 (4.4-11.0)
[2020-07-17 15:44] LABS: Iron 50 ug/dL (65-175); Iron Binding Capacity,Total 341 ug/dL (250-450); PERCENT IRON SATURATION 14.7 % (15.0-55.0)
--- NOTE | 2020-07-17 18:42 | CT_ITS ---
STUDY: LOW DOSE CT LUNG CANCER SCREENING REASON FOR EXAM: Male, 69 years old. Tobacco Dependency. Patient smokes half a pack per day for 40 years. RADIATION DOSAGE (If Supplied By Facility): CTDIvol = ( 4.02 ) mGy, DLP = ( 132.90 ) mGycm TECHNIQUE: No contrast was administered. Low dose technique was utilized (average mAS-38 and kVp 120). 1.25 mm axial source images with a slice interval of 1.25-mm were reconstructed in lung windows. 2.5 mm axial source images with a slice interval of 2.5-mm were reconstructed in lung windows. 5.0 mm axial source images with a slice interval of 5.0-mm were reconstructed in soft tissue windows. Nodule measured using lung windows on PACS and/or independent workstation with automated measurement of minimum and maximum diameter. Nodule measurement reported as average diameter rounded to the nearest whole number. Growth is defined as an increase ins size of greater than 1.5 mm. COMPARISON: Comparison is made with prior study dated 03/31/2019. NODULES: There is a 6.6 mm noncalcified pulmonary nodule in the posterior medial segment of the left lower lobe as seen on axial image #149. Emphysema: Since prior study, there has been progressive increased reticular nodular pattern in both lungs more prominent at the lung bases. There is mild degree of bronchiectasis. Endobronchial lesion: None Aorta: Atherosclerotic plaque calcification. Coronary arteries: Coronary artery calcification. Heart: Prior CABG. Pulmonary artery: Unremarkable Mediastinal nodes: Unremarkable Other chest and abdominal findings: CT/Low Dose CT Lung Screening IMPRESSION: Lung-RADS category 3 - Continue screening with LDCT in 6 months. IMPORTANT NOTES FOR USE: ACR Lung-RADS Version 1.1 Assessment Categories Release Date: 2018 Category: Coded 0-4 bases on nodule(s) with highest degree of suspicion. Negative screen is defined as categories 1 and 2; a positive screen is defined as categories 3 and 4. Category 3 and 4A nodules that are unchanged on interval CT should be coded as category 2, and individuals returned to screening in 12 months. Category 4X: Category 3 or 4 nodules with additional imaging findings that increase the suspicion of lung cancer, such as spiculation, GGN that doubles in size in 1 year, enlarged lymph notes, etc. Category Modifiers: S (significant finding unrelated to lung cancer) Electronically Signed: Brett Fontanez MD at 9:30 EDT , Service support ,
== END ==
PROVIDERS: PCP Internal Medicine; Referring Provider Internal Medicine Critical Care Medicine; Visit Provider Internal Medicine Critical Care Medicine
DX: D50.9 Iron deficiency anemia, unspecified (principal); M06.9 Rheumatoid arthritis, unspecified; J18.9 Pneumonia, unspecified organism; F17.210 Nicotine dependence, cigarettes, uncomplicated; Z86.39 Personal history of other endocrine, nutritional and metabolic disease; Z12.2 Encounter for screening for malignant neoplasm of respiratory organs
CPT/HCPCS: 36415; 71046; 71271; 83540; 83550; 85025

== ENCOUNTER → 2020-07-28 09:58 | Outpatient (CLI) | payer MEDICARE, SELFPAY ==
[2020-07-18 07:45] VITALS: BMI 34.4
[2020-07-28 12:24] LABS: Absolute Lymphocyte Count 1.42 X10^3/uL (0.83-4.51); Absolute Neutrophil Count 4.4 X10^3/uL (2.0-7.7); Basophil# 0.05 X10^3/uL; Basophil% 0.7 % (0-1); Eosinophil# 0.29 X10^3/uL; Eosinophils% 3.9 % (0-5); Hematocrit 32.6 % (40-54); Hemoglobin 9.7 g/dL (13.0-16.5); Lymphocyte # 1.42 X10^3/ul (0.83-4.51); Lymphocyte % 19.1 % (19-41); Mean Corp Hgb Conc 29.8 g/dL (32-36); Mean Corpuscular Hgb 26.4 pg (27.0-32.0); Mean Corpuscular Volume 88.6 fL (80-94); Mean Platelet Vol. 11.1 fl (6.2-12.0); Monocyte# 1.16 X10^3/uL; Monocyte% 15.6 % (0-10); NRBC Flagged by Analyzer 0 % (0-5); Neutrophil # 4.41 X10^3/uL (2.7-7.7); Neutrophil % 59.5 % (47-70); Platelet Count 347 K/mm3 (150-450); RBC Distribution Width CV 18.5 % (11.6-14.6); RBC Distribution Width SD 58.3 fl (35.1-43.9); Red Blood Count 3.68 M/mm3 (4.6-6.2); White Blood Count 7.4 K/mm3 (4.4-11.0)
[2020-07-28 12:47] LABS: Cholesterol 91 mg/dL (200); High Density Lipoprotein 30 mg/dL; Triglycerides 143 mg/dL; Very Low Density Lipoprotein 29 mg/dL (5-40)
[2020-07-28 12:56] LABS: Hemoglobin A1c 7.2 % (3.8-5.6)
== END ==
PROVIDERS: PCP Internal Medicine; Visit Provider Internal Medicine
DX: D50.9 Iron deficiency anemia, unspecified (principal); E11.9 Type 2 diabetes mellitus without complications; E66.9 Obesity, unspecified; E78.5 Hyperlipidemia, unspecified; I25.10 Atherosclerotic heart disease of native coronary artery without angina pectoris; Z86.39 Personal history of other endocrine, nutritional and metabolic disease
CPT/HCPCS: 80061; 83036; 85025

== ENCOUNTER → 2020-09-18 11:41 | Outpatient (CLI) | payer MEDICARE, SELFPAY ==
[2020-07-31 13:12] VITALS: BMI 34.4
[2020-09-18 12:18] LABS: Absolute Lymphocyte Count 1.11 X10^3/uL (0.83-4.51); Absolute Neutrophil Count 5.3 X10^3/uL (2.0-7.7); Basophil# 0.04 X10^3/uL; Basophil% 0.5 % (0-1); Eosinophil# 0.25 X10^3/uL; Eosinophils% 3.2 % (0-5); Hematocrit 35.5 % (40-54); Hemoglobin 10.9 g/dL (13.0-16.5); Lymphocyte # 1.11 X10^3/ul (0.83-4.51); Lymphocyte % 14.4 % (19-41); Mean Corp Hgb Conc 30.7 g/dL (32-36); Mean Corpuscular Hgb 26.2 pg (27.0-32.0); Mean Corpuscular Volume 85.3 fL (80-94); Mean Platelet Vol. 10.9 fl (6.2-12.0); Monocyte# 1.01 X10^3/uL; Monocyte% 13.1 % (0-10); NRBC Flagged by Analyzer 0 % (0-5); Neutrophil # 5.27 X10^3/uL (2.7-7.7); Neutrophil % 68.2 % (47-70); Platelet Count 320 K/mm3 (150-450); RBC Distribution Width CV 15.3 % (11.6-14.6); RBC Distribution Width SD 47.8 fl (35.1-43.9); Red Blood Count 4.16 M/mm3 (4.6-6.2); White Blood Count 7.7 K/mm3 (4.4-11.0)
[2020-09-18 13:03] LABS: Ferritin 43 ng/mL (26-388); Iron 38 ug/dL (65-175); Iron Binding Capacity,Total 326 ug/dL (250-450)
== END ==
PROVIDERS: PCP Internal Medicine; Referring Provider Physician Assistant; Visit Provider Physician Assistant
DX: D50.9 Iron deficiency anemia, unspecified (principal); Z86.39 Personal history of other endocrine, nutritional and metabolic disease
CPT/HCPCS: 36415; 82728; 83540; 83550; 85025

== ENCOUNTER → 2021-02-05 10:38 | Outpatient (CLI) | payer MEDICARE, SELFPAY ==
[2021-02-05 12:37] LABS: Absolute Lymphocyte Count 1.91 X10^3/uL (0.83-4.51); Basophil# 0.07 X10^3/uL; Basophil% 0.8 % (0-1); Eosinophil# 0.52 X10^3/uL; Eosinophils% 5.9 % (0-5); Hematocrit 32.9 % (40-54); Hemoglobin 10.6 g/dL (13.0-16.5); Lymphocyte # 1.91 X10^3/ul (0.83-4.51); Lymphocyte % 21.5 % (19-41); Mean Corp Hgb Conc 32.2 g/dL (32-36); Mean Corpuscular Hgb 26.9 pg (27.0-32.0); Mean Corpuscular Volume 83.5 fL (80-94); Mean Platelet Vol. 11.1 fl (6.2-12.0); Monocyte# 1.28 X10^3/uL; Monocyte% 14.4 % (0-10); NRBC Flagged by Analyzer 0 % (0-5); Neutrophil # 5.01 X10^3/uL (2.7-7.7); Neutrophil % 56.5 % (47-70); Platelet Count 374 K/mm3 (150-450); RBC Distribution Width CV 14.5 % (11.6-14.6); RBC Distribution Width SD 44.3 fl (35.1-43.9); Red Blood Count 3.94 M/mm3 (4.6-6.2); White Blood Count 8.9 K/mm3 (4.4-11.0)
[2021-02-05 12:56] LABS: Vitamin D,25 Hydroxy 27.1 ng/mL
[2021-02-05 13:37] LABS: ALB/GLOB Ratio 0.9 RATIO (0.9-2.4); AST(SGOT) 13 U/L (15-37); Alanine Aminotransfer ALT/SGPT 19 U/L (16-61); Albumin, Serum 3.1 g/dL (3.2-5.0); Alkaline Phosphatase 93 U/L (45-117); Anion Gap 7 (5-15); BUN 15 mg/dL (7-18); BUN/Creat Ratio 20.7 RATIO (10-20); Calcium,Total 8.7 mg/dL (8.5-10.1); Chloride 107 mmol/L (98-107); Cholesterol 101 mg/dL (200); Creatinine, Serum 0.72 mg/dL (0.70-1.30); EST Glomerular Filtration Rate 114 mL/min (>60); Est Glom Filt Rate - Afr Amer 138 mL/min (>60); Free T3 1.9 pg/mL (2.18-3.98); Globulin 3.6 g/dL (2.2-4.2); Glucose 92 mg/dL (74-106); High Density Lipoprotein 35 mg/dL; PSA,Total - Annual Screen 0.92 ng/mL (0.00-4.00); Potassium 4.1 mmol/L (3.5-5.1); Protein, Total 6.7 g/dL (6.4-8.2); Sodium Level 139 mmol/L (136-145); T4 Free Direct 1.28 ng/dL (0.76-1.46); Thyroid Stim Hormone (TSH) 0.92 uIU/mL (0.358-3.74); Triglycerides 80 mg/dL; Very Low Density Lipoprotein 16 mg/dL (5-40)
== END ==
PROVIDERS: PCP Internal Medicine; Visit Provider Internal Medicine
DX: D50.9 Iron deficiency anemia, unspecified (principal); E11.9 Type 2 diabetes mellitus without complications; E66.9 Obesity, unspecified; E78.5 Hyperlipidemia, unspecified; Z86.39 Personal history of other endocrine, nutritional and metabolic disease; E55.9 Vitamin D deficiency, unspecified; Z12.5 Encounter for screening for malignant neoplasm of prostate
CPT/HCPCS: 36415; 80053; 80061; 82306; 84153; 84439; 84443; 84481; 85025; G0103

== ENCOUNTER 2021-03-14 09:37 | Emergency (ER) | payer MEDICARE, SELFPAY ==
[2021-03-14 09:39] VITALS: BP 141/60; PULSE 86; RESP 16; TEMP 35.5; O2SAT 88
[2021-03-14 09:41] VITALS: BP 141/60; PULSE 86; RESP 16; TEMP 35.5; O2SAT 88
[2021-03-14 10:01] VITALS: O2SAT 98
--- NOTE | 2021-03-14 10:01 | EKG12_ITS ---
Test Reason : SOB Blood Pressure : / mmHG Vent. Rate : 084 BPM Atrial Rate : 084 BPM P-R Int : 160 ms QRS Dur : 100 ms QT Int : 378 ms P-R-T Axes : 048 027 023 degrees QTc Int : 446 ms Sinus rhythm with occasional Premature ventricular complexes Otherwise normal ECG Confirmed by IAM TEIXEIRA, HAVEN ([id number]), video editor APOLONIA GUERRERO ([id number]) on 03/15/2021 8:59:17 AM Referred By: SABRA Confirmed By:HAVEN VITALE MD
--- NOTE | 2021-03-14 10:01 | RAD_ITS ---
STUDY: X-RAY CHEST REASON FOR EXAM: Male, 70 years old. Cough TECHNIQUE: Single AP portable view of the chest. COMPARISON: Comparison is made with prior examination dated 07/17/2020. FINDINGS: EKG electrodes are seen. There is blunting of the right costophrenic angle. Increased markings in the posterior medial segment of the left lower lobe suggestive of possible infiltrate. Sternal cerclage wires and vascular clips are present from a prior sternotomy and coronary artery bypass graft procedure (CABG). Normal mediastinum and sho. Normal visualized pulmonary arteries. Normal visualized aortic arch and descending thoracic aorta. There are diffuse degenerative changes of the visualized thoracic spine. There is degenerative osteoarthritis of the bilateral shoulders. There is no demonstrated abnormality of the visualized soft tissue structures of the upper abdomen. RAD/Chest 1 View (Portable) IMPRESSION: Findings suggestive of a focal infiltrate in the posterior medial segment of the left lower lobe. Blunting of the right costophrenic angle. Electronically Signed: Brett Fontanez MD at 11:10 EST , Service support ,
--- NOTE | 2021-03-14 10:03 | EDS_ITS ---
HPI History of Present Illness Chief Complaint: Shortness of Breath Informant: patient Narrative Narrative: Patient is a 70-year-old male presenting with fatigue cough and shortness of breath. He started having symptoms 3 days ago. Yesterday he had a positive home test for COVID. He called his PCP today and at that time checked his home pulse ox and it was 83 to 86%. Patient notes he has been feeling short of breath and had a cough productive of sputum. He has had fatigue. He denies any fever, chest pain, nausea, vomiting or diarrhea. He does have some intermittent headaches. He has had all 3 Pfizer COVID vaccines. Patient does have diabetes mellitus, rheumatoid arthritis and a history of non-Hodgkin's lymphoma. He is not on any anticoagulation. No other complaints at this time. [facility] Medical History Allergic rhinitis Arthritis Asthma Atherosclerosis of coronary artery of [place] heart without angina pectoris Bronchitis Cancer Chronic bronchitis Colon polyp COPD (chronic obstructive pulmonary disease) Gastritis History of basal cell carcinoma History of diabetes mellitus, type II History of non-Hodgkin's lymphoma History of pilonidal cyst Hyperlipidemia Iron deficiency anemia Iron deficiency anemia Lab test negative for COVID-19 virus Non-Hodgkin lymphoma Obesity Pneumonia Positive colorectal cancer screening using Cologuard test RA (rheumatoid arthritis) Tobacco use URI (upper respiratory infection) 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 complications Home Medications aspirin 81 mg tablet,delayed release 81 mg PO DAILY 09/28/19 [History Last Taken Unknown] rituximab 10 mg/mL concentrate,intravenous mg .ROUTE 09/28/19 [History Last Taken Unknown] cholecalciferol (vitamin D3) 25 mcg (1,000 unit) capsule 25 mcg PO DAILY 07/17/20 [History Last Taken Unknown] ferrous sulfate 325 mg (65 mg iron) tablet 325 mg PO BID #60 tab 07/18/20 [Rx Last Taken Unknown] albuterol sulfate 90 mcg/actuation aerosol inhaler 1 - 2 puff INHALATION Q6H PRN #8.5 g 07/31/20 [Rx Last Taken Unknown] atorvastatin 40 mg tablet 40 mg PO QHS #90 tab 09/12/20 [Rx Last Taken Unknown] metoprolol tartrate 25 mg tablet 25 mg PO BID #180 tab 09/12/20 [Rx Last Taken Unknown] nitroglycerin 0.4 mg sublingual tablet 0.4 mg SUBLINGUAL Q5M PRN #30 tab 04/16 [Rx Last Taken Unknown] cyanocobalamin (vitamin B-12) 1,000 mcg capsule 1,000 mcg PO DAILY 01/29/21 [History Last Taken Unknown] glimepiride 2 mg tablet 2 mg PO DAILY #90 tab 01/29/21 [Rx Last Taken Unknown] metformin 500 mg tablet 500 mg PO BID #180 tab 01/29/21 [Rx Last Taken Unknown] dexamethasone [Decadron] 6 mg PO DAILY #7 tab 03/14/21 [Rx Last Taken Unknown] Allergy/AdvReac Type Severity Reaction Status Date / Time famotidine [From Pepcid] AdvReac Intermediate Diarrhea Verified 03/14/21 09:39 levofloxacin [From Levaquin] AdvReac Intermediate dizziness Verified 03/14/21 09:39 Family History Father Arthritis Bleeding disorder Hypertension Kidney disease Cancer Skin Anemia blood clots Emphysema lung Mother Colon cancer Cancer Lung Cancer Diabetes Brother Thyroid disorder Surgical History History of coronary artery stent placement (~10/22/13) History of excision of pilonidal cyst History of thymectomy Hx of lymph node excision Social History Smoking Status: Current every day smoker tobacco type: cigarettes Tobacco: How many years used: 50 second hand exposure: Yes quit status: considering quitting alcohol intake: current alcohol intake frequency: a few times a week substance use type: does not use caffeine: Yes Type: coffee Number of servings: 3 what type of physical activity do you participate in: none frequency: does not exercise seatbelt use: always ROS ROS ED Constitutional Constitutional ED: Reports other Details: Malaise and fatigue ; Denies chills or fever(s) Eyes Eyes: Denies blurry vision ENT ENT ED: Denies rhinorrhea or sore throat Cardiovascular Cardiovascular: Denies chest pain Respiratory/Chest Respiratory/Chest: Reports cough, dyspnea, dyspnea on exertion and sputum Gastrointestinal Gastrointestinal: Denies abdominal pain, diarrhea, nausea or vomiting Genitourinary Genitourinary ED: Denies dysuria or hematuria Musculoskeletal Musculoskeletal: Reports myalgias and neck pain; Denies arthralgias Integumentary Denies rash Neurologic Neurologic: Denies headache(s) or weakness Psychiatric Psychiatric: Denies depression EXAM Physical Exam Const Vital Signs: 03/14/21 09:39 03/14/21 09:41 03/14/21 10:01 Temperature 96 F L 96 F L Temperature Source Temporal Temporal Pulse Rate 86 86 Respiratory Rate 16 16 Respiratory Effort Normal Respiratory Depth Normal Respiratory Pattern Normal Blood Pressure 141/60 H 141/60 H Blood Pressure Mean 87 87 Pulse Ox 88 88 Oxygen Delivery Method Room Air Room Air Room Air 03/14/21 12:44 03/14/21 13:34 Temperature Temperature Source Pulse Rate 72 Respiratory Rate 18 Respiratory Effort Respiratory Depth Respiratory Pattern Blood Pressure Blood Pressure Mean Pulse Ox 97 97 Oxygen Delivery Method Nasal Cannula Positive well nourished and well developed General Appearance ED: well developed and pallor HEENT Reports moist mucous membranes atraumatic Eyes PERRL and EOMs intact bilaterally Neck supple, no meningeal signs and no JVD Resp normal respiratory effort Resp Narrative: Coarse breath sounds throughout, diminished at the bases Cardio regular rate, regular rhythm and no murmurs GI non-tender and non-distended Palpation: soft Back/Spine normal to inspection Extremity normal to inspection General Extremety ED: Negative for edema or tenderness General Extremity: Negative for edema Neuro oriented x3 and no sensory deficits noted Sensorium / Orientation: alert Motor Exam: general weakness Psych mental status grossly normal Skin General Skin Exam: pallor Lesions: no lesions Rashes: no rashes MDM MDM MDM Narrative Medical decision making narrative: Patient was evaluated for acute shortness of breath, cough and generalized malaise. He is COVID-positive. He is mildly hypoxic with ambulation and drops down to 86%. He is requiring up to 3 L of oxygen in the ER. D-dimer is elevated and CT obtained which shows small bilateral pleural effusions with by basilar infiltrates as well as bronchiectasis and mucous filled bronchi of the left lower lobe. Patient started on Decadron. Given that he has only had 3 days of symptoms I do not think he has a superimposed bacterial pneumonia. Patient would like to go home and is set up with home oxygen. He is counseled on return precautions including worsening shortness of breath, concerns for dehydration or O2 saturation going below 90% at rest. I did discuss the case with his PCP he will follow-up outpatient early next week. Lab Data Labs: Laboratory Results - last 24 hr 03/14/21 03/14/21 03/14/21 10:15 10:15 10:15 WBC 8.2 RBC 4.05 L Hgb 10.4 L Hct 34.1 L MCV 84.2 MCH 25.7 L MCHC 30.5 L RDW Std Deviation 45.6 H RDW Coeff of Rafael 14.8 H Plt Count 384 MPV 10.1 Immature Gran % (Auto) 0.700 Neut % (Auto) 66.0 Lymph % (Auto) 13.6 L [place] % (Auto) 13.6 H Eos % (Auto) 5.5 H Baso % (Auto) 0.6 Absolute Neuts (auto) 5.4 Absolute Lymphs (auto) 1.11 Nucleated RBC % 0 D-Dimer Quant (PE/DVT) 1.44 H* Sodium 140 Potassium 4.0 Chloride 107 Carbon Dioxide 26.0 Anion Gap 7 BUN 20 H Creatinine 0.82 Estim Creat Clear Calc 88.00 Est GFR (MDRD) Af Amer 120 Est GFR (MDRD) Non-Af 99 BUN/Creatinine Ratio 24.5 H Glucose 246 H Lactic Acid Calcium 8.9 Total Bilirubin 0.40 AST 10 L ALT 22 Alkaline Phosphatase 80 Troponin I High Sens 10 Total Protein 6.7 Albumin 3.0 L Globulin 3.7 Albumin/Globulin Ratio 0.8 L 03/14/21 10:15 WBC RBC Hgb Hct MCV MCH MCHC RDW Std Deviation RDW Coeff of Rafael Plt Count MPV Immature Gran % (Auto) Neut % (Auto) Lymph % (Auto) [place] % (Auto) Eos % (Auto) Baso % (Auto) Absolute Neuts (auto) Absolute Lymphs (auto) Nucleated RBC % D-Dimer Quant (PE/DVT) Sodium Potassium Chloride Carbon Dioxide Anion Gap BUN Creatinine Estim Creat Clear Calc Est GFR (MDRD) Af Amer Est GFR (MDRD) Non-Af BUN/Creatinine Ratio Glucose Lactic Acid 1.7 Calcium Total Bilirubin AST ALT Alkaline Phosphatase Troponin I High Sens Total Protein Albumin Globulin Albumin/Globulin Ratio Radiography Chest X-Ray - ED: 1 View, Read by ED Physician, Read by Radiologist and Left Infiltrate Diagnostic Testing: Clinical Impression(s) from Imaging Studies Chest X-Ray 03/14/21 10:01 IMPRESSION: Findings suggestive of a focal infiltrate in the posterior medial segment of the left lower lobe. Blunting of the right costophrenic angle. Electronically Signed: Brett Fontanez MD at 11:10 EST , Service support , Chest CTA 03/14/21 10:52 IMPRESSION: Small bilateral pleural effusions with bibasilar infiltrates. Bronchiectasis and mucus filled bronchi in the left lower lobe. Small right renal cyst. Electronically Signed: Brett Fontanez MD at 11:37 EST , Service support , Rhythm Strip Rhythm Strip: Sinus Rhythm Rate: 84 Ectopy: PVC(s) EKG Initial EKG: Attestation: I personally reviewed and interpreted this EKG as follows: Interpretation: Sinus Rhythm Comments: Normal sinus rhythm at a rate of 84 with PVC present Normal axis Normal intervals Normal ST segments No change prior to prior EKG on 10/22/2013 Discharge Plan Triage Chief Complaint: Shortness of Breath ED Provider: Eva Marie Dx/Rx/DC Orders Clinical Impression: COVID-19 in immunocompromised patient, Hypoxia Instructions: Coronavirus Disease 2019 (COVID-19): Caring for Yourself or Others Prescriptions: New dexamethasone [Decadron] 6 mg tablet 6 mg PO DAILY Qty: 7 RF: 0 No Action rituximab 10 mg/mL concentrate,intravenous 10 mg/mL concentrate .Route RF: 0 aspirin [Adult Aspirin Regimen] 81 mg tablet,delayed release (DR/EC) 81 mg PO DAILY RF: 0 cholecalciferol (vitamin D3) 25 mcg (1,000 unit) capsule 25 mcg PO DAILY RF: 0 albuterol sulfate 90 mcg/actuation HFA aerosol inhaler 1 - 2 puff inhalation Q6H PRN (Reason: shortness of breath or wheezing) Qty: 8.5 RF: 0 nitroglycerin [Nitrostat] 0.4 mg tablet, sublingual 0.4 mg SUBLINGUAL Q5M PRN (Reason: chest pain) Qty: 30 RF: 0 cyanocobalamin (vitamin B-12) 1,000 mcg capsule 1,000 mcg PO DAILY RF: 0 metformin 500 mg tablet 500 mg PO BID Qty: 180 RF: 1 glimepiride 2 mg tablet 2 mg PO DAILY Qty: 90 RF: 1 ferrous sulfate 325 mg (65 mg iron) tablet 325 mg PO BID Qty: 60 RF: 0 atorvastatin 40 mg tablet 40 mg PO QHS Qty: 90 RF: 1 metoprolol tartrate 25 mg tablet 25 mg PO BID Qty: 180 RF: 1 Primary Care Provider: Donna Will Referrals: Donna Will MD [Primary Care Provider] - Activity Restrictions/Additional Instructions: Call Dr. Gomez to follow-up on Friday or Friday. Return if your oxygen is going below 90% despite being on home O2. If you need more than 4 L you need to come back to the emergency room. Disposition Disposition: Home, Self Care Discharge Date/Time: 03/14/21 13:38
[2021-03-14 10:31] LABS: Absolute Lymphocyte Count 1.11 X10^3/uL (0.83-4.51); Absolute Neutrophil Count 5.4 X10^3/uL (2.0-7.7); Basophil# 0.05 X10^3/uL; Basophil% 0.6 % (0-1); Eosinophil# 0.45 X10^3/uL; Eosinophils% 5.5 % (0-5); Hematocrit 34.1 % (40-54); Hemoglobin 10.4 g/dL (13.0-16.5); Lymphocyte # 1.11 X10^3/ul (0.83-4.51); Lymphocyte % 13.6 % (19-41); Mean Corp Hgb Conc 30.5 g/dL (32-36); Mean Corpuscular Hgb 25.7 pg (27.0-32.0); Mean Corpuscular Volume 84.2 fL (80-94); Mean Platelet Vol. 10.1 fl (6.2-12.0); Monocyte# 1.11 X10^3/uL; Monocyte% 13.6 % (0-10); NRBC Flagged by Analyzer 0 % (0-5); Neutrophil # 5.37 X10^3/uL (2.7-7.7); Platelet Count 384 K/mm3 (150-450); RBC Distribution Width CV 14.8 % (11.6-14.6); RBC Distribution Width SD 45.6 fl (35.1-43.9); Red Blood Count 4.05 M/mm3 (4.6-6.2); White Blood Count 8.2 K/mm3 (4.4-11.0)
[2021-03-14] MEDS: dexAMETHasone 4 MG Tablet 6 MG PO (10:34)
[2021-03-14 10:49] LABS: D-Dimer Quantitative (DVT/PE) 1.44 FEU/ug/m (0.27-0.49); Lactic Acid 1.7 mmol/L (0.4-1.9)
--- NOTE | 2021-03-14 10:52 | CT_ITS ---
STUDY: CTA CHEST REASON FOR EXAM: Male, 70 years old. Hypoxia, elevated dimer RADIATION DOSAGE (If Supplied By Facility): CTDIvol = ( 15.97 ) mGy, DLP = ( 552.02 ) mGycm TECHNIQUE: The examination was performed with the intravenous administration of ISOVUE 370 100ml. Post-processing of the angiographic images was performed, with multiplanar reformation and 3D reconstruction. Individualized dose optimization techniques were used for this CT. COMPARISON: Comparison is made with prior chest The [facility] today as well as prior CT scan of thorax dated 07/17/2020. FINDINGS: Normal enhancement of the main pulmonary artery and right and left pulmonary arteries. Normal enhancement of the bilateral peripheral pulmonary arteries. There is no demonstrated pulmonary embolism. Normal thoracic aorta and visualized great vessels. There is no demonstrated aortic dissection. Normal heart and pericardium. Normal mediastinum. Normal hilar regions. Normal visualized trachea and bronchi. The lungs are well expanded. Small bilateral pleural effusions with bibasilar pulmonary infiltrates. This is superimposed on basilar scarring. Mucus filled bronchi in the left lower lobe. Normal chest wall structures. There are degenerative changes of thoracic spine. There is a 3.2 cm cyst in the upper medial pole of the right kidney. CT/CTA Chest W/WO Contrast IMPRESSION: Small bilateral pleural effusions with bibasilar infiltrates. Bronchiectasis and mucus filled bronchi in the left lower lobe. Small right renal cyst. Electronically Signed: Brett Fontanez MD at 11:37 EST , Service support ,
[2021-03-14 10:58] LABS: ALB/GLOB Ratio 0.8 RATIO (0.9-2.4); AST(SGOT) 10 U/L (15-37); Alanine Aminotransfer ALT/SGPT 22 U/L (16-61); Alkaline Phosphatase 80 U/L (45-117); Anion Gap 7 (5-15); BUN 20 mg/dL (7-18); BUN/Creat Ratio 24.5 RATIO (10-20); Calcium,Total 8.9 mg/dL (8.5-10.1); Chloride 107 mmol/L (98-107); Creatinine, Serum 0.82 mg/dL (0.70-1.30); EST Glomerular Filtration Rate 99 mL/min (>60); Est Glom Filt Rate - Afr Amer 120 mL/min (>60); Globulin 3.7 g/dL (2.2-4.2); Glucose 246 mg/dL (74-106); Protein, Total 6.7 g/dL (6.4-8.2); Sodium Level 140 mmol/L (136-145); Troponin-I HS 10 pg/mL (3.0-78.0)
[2021-03-14 12:18] VITALS: O2SAT 98
[2021-03-14 12:44] VITALS: PULSE 72; RESP 18; O2SAT 97
--- NOTE | 2021-03-14 13:22 | CASEMGMT ---
Addendum entered by Brittani Hernandez 03/14/21 16:11: [id number]- Called [facility], s/w Mee and confirmed received faxed order. LAURA Alfaro Original Note: ER RNCM Covid Home O2 Discharge Planning: S/w patient and confirmed phone number and home address is correct on demographics. Portable tank from [employer] provided to patient at bedside. Primary nurse updated. Patient acknowledges to call [facility] upon getting home to coordinate Oxygen Concentrator delivery. Patient confirmed has a Pulse Ox at home and aware to check his oxygenation and aware RNCM to call to f/u to inquire how patient is doing at home. Acknowledges and agrees with plan. [facility] in network with patient insurance per insurance website. Orders faxed to [facility]. LAURA Alfaro
[2021-03-14 13:34] VITALS: O2SAT 97
--- NOTE | 2021-03-16 17:26 | CASEMGMT ---
ER RNCM Covid Home O2 DC F/u Call: Called patient at listed number on demographics, no answer. VM was left with ER RNCM contact for return call if needed. Patient was aware ER RNCM would be calling to F/u at time of ER DC and acknowledged/agreed. Silke Hernandez RNCM
--- NOTE | 2021-03-19 17:22 | CASEMGMT ---
ER RNCM Covid Home O2 DC F/u Call: Called patient at listed number and answered. Introduced self and role. Patient states that he is doing better and able to take a shower without feeling SOB. Not wearing Home O2 all the time and O2 sat 92%ra, 96% on 2lpm. Had Tele/phone appt w/PCP today and will schedule a physical in person f/u on Friday. LAURA Alfaro
--- NOTE | 2021-03-20 17:40 | CASEMGMT ---
[facility] ED COVID Home Oxygen follow-up TARAH DEL RIO placed call to patient's telephone number listed on demographics. TARAH DEL RIO introduced self and role at [facility]. Patient reports he is feeling better, using home oxygen intermittently with SpO2 96-97% with oxygen and 92% at rest without oxygen. Denies pain. Reports mild shortness of breath while climbing stairs to do laundry, but not as bad as before. Patient states he has all prescribed medications and has been eating and drinking well. Patient has scheduled appointment for PCP follow-up on 03/28/21. Patient denies questions or concerns and expressed appreciation for follow-up call. TARAH Patino CM
== END 2021-03-14 13:38 | disposition home or self-care (01) ==
PROVIDERS: Emergency Provider Emergency Medicine; PCP Internal Medicine; Visit Provider Emergency Medicine
DX: U07.1 COVID-19 (principal); M06.9 Rheumatoid arthritis, unspecified; J47.9 Bronchiectasis, uncomplicated; E11.9 Type 2 diabetes mellitus without complications; R09.02 Hypoxemia; F17.210 Nicotine dependence, cigarettes, uncomplicated; I25.10 Atherosclerotic heart disease of native coronary artery without angina pectoris; E78.5 Hyperlipidemia, unspecified; M19.90 Unspecified osteoarthritis, unspecified site; E66.9 Obesity, unspecified; Z68.30 Body mass index [BMI] 30.0-30.9, adult; Z95.5 Presence of coronary angioplasty implant and graft; Z79.82 Long term (current) use of aspirin; Z79.84 Long term (current) use of oral hypoglycemic drugs; Z79.899 Other long term (current) drug therapy
CPT/HCPCS: 36415; 71045; 71275; 80053; 83605; 84484; 85025; 85379; 87040; 87426; 93005; 99284; Q9967; A4216

== ENCOUNTER 2021-03-22 22:55 | Inpatient (IN) | payer MEDICARE, SELFPAY ==
[2021-03-22 22:56] VITALS: BP 140/86; PULSE 75; RESP 18; TEMP 37.9; O2SAT 88; BMI 31.5
[2021-03-22 23:00] VITALS: BP 163/64; PULSE 74; RESP 30; TEMP 37.9; O2SAT 92
--- NOTE | 2021-03-22 23:04 | EKG12_ITS ---
Test Reason : GEN ILL Blood Pressure : / mmHG Vent. Rate : 073 BPM Atrial Rate : 073 BPM P-R Int : 132 ms QRS Dur : 090 ms QT Int : 356 ms P-R-T Axes : 035 027 029 degrees QTc Int : 392 ms Sinus rhythm with Premature atrial complexes in a pattern of bigeminy Otherwise normal ECG Confirmed by IAM TEIXEIRA, HAVEN ([id number]), graphic editor AVINASH MARTINEZ ([id number]) on 03/26/2021 10:56:45 AM Referred By: HERVE Confirmed By:HAVEN VITALE MD
--- NOTE | 2021-03-22 23:06 | EDS_ITS ---
HPI History of Present Illness Chief Complaint: General Illness Informant: patient and EMS Narrative Narrative: 70-year-old male reportedly is on day 10 of COVID-19. He is vaccinated. Reportedly he tells me that his felt he was not breathing correctly so called EMS who noted that he was 87% on room air. He states he said a slight cough but no other symptomology. He states he does not feel confused. When asked what symptoms of Covid he has he states not much just a slight cough. His is not here at the time of examination to provide details. Per the computer the patient had a home Covid test and was seen in the emergency department on 14 March. He was set up for home oxygen and started on dexamethasone. He has a history of diabetes, non-Hodgkin's lymphoma, COPD, coronary artery disease. He is reportedly not anticoagulated. He has had his Covid vaccinations and booster. The patient's arrived and notes that he had been doing quite well at home until today. His last dose of dexamethasone was yesterday. She notes that he is abruptly weak today unable to stand. She notes it took to paramedics to get him up and onto the cot. She states that he appears confused and not the way that he has been. She notes that she is unable to care for him in the current state. [facility] Medical History Allergic rhinitis Arthritis Asthma Atherosclerosis of coronary artery of [place] heart without angina pectoris Bronchitis Cancer Chronic bronchitis Colon polyp COPD (chronic obstructive pulmonary disease) Gastritis History of basal cell carcinoma History of diabetes mellitus, type II History of non-Hodgkin's lymphoma History of pilonidal cyst Hyperlipidemia Iron deficiency anemia Iron deficiency anemia Lab test negative for COVID-19 virus Non-Hodgkin lymphoma Obesity Pneumonia Positive colorectal cancer screening using Cologuard test RA (rheumatoid arthritis) Tobacco use URI (upper respiratory infection) 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 complications Home Medications aspirin 81 mg tablet,delayed release 81 mg PO DAILY 09/28/19 [History Last Taken Unknown] rituximab 10 mg/mL concentrate,intravenous 10 mg .ROUTE UD 09/28/19 [History Last Taken Unknown] cholecalciferol (vitamin D3) 25 mcg (1,000 unit) capsule 25 mcg PO DAILY 07/17/20 [History Last Taken Unknown] ferrous sulfate 325 mg (65 mg iron) tablet 325 mg PO BID #60 tab 07/18/20 [Rx Last Taken Unknown] metoprolol tartrate 25 mg tablet 25 mg PO BID #180 tab 09/12/20 [Rx Last Taken Unknown] nitroglycerin 0.4 mg sublingual tablet 0.4 mg SUBLINGUAL Q5M PRN #30 tab 09/25/20 [Rx Last Taken Unknown] cyanocobalamin (vitamin B-12) 1,000 mcg capsule 1,000 mcg PO DAILY 01/29/21 [History Last Taken Unknown] glimepiride 2 mg tablet 2 mg PO DAILY #90 tab 01/29/21 [Rx Last Taken Unknown] metformin 500 mg tablet 500 mg PO BID #180 tab 01/29/21 [Rx Last Taken Unknown] Allergy/AdvReac Type Severity Reaction Status Date / Time famotidine [From Pepcid] AdvReac Intermediate Diarrhea Verified 03/22/21 23:03 levofloxacin [From Levaquin] AdvReac Intermediate dizziness Verified 03/14/21 09:39 Family History Father Arthritis Bleeding disorder Hypertension Kidney disease Cancer Skin Anemia blood clots Emphysema lung Mother Colon cancer Cancer Lung Cancer Diabetes Brother Thyroid disorder Surgical History History of coronary artery stent placement (~10/22/13) History of excision of pilonidal cyst History of thymectomy Hx of lymph node excision Social History (Updated 03/23/21 @ 00:[address] Janice Mackey MD) household members: spouse Smoking Status: Current every day smoker tobacco type: cigarettes Smoking packs per day: 1 Smoking cigarettes per day: 20.0 Years smoked: 55 Smoking pack-years: 55.00 second hand exposure: Yes quit status: considering quitting alcohol intake: current alcohol intake frequency: holidays/special occasions only substance use type: does not use caffeine: Yes Type: coffee Number of servings: 3 what type of physical activity do you participate in: none frequency: does not exercise seatbelt use: always ROS ROS ED Constitutional Constitutional ED: Denies chills, fever(s) or weight loss Eyes Eyes: Denies change in vision or diplopia ENT ENT ED: Denies ear pain, rhinorrhea or sore throat Cardiovascular Cardiovascular: Denies chest pain, orthopnea, palpitations or racing heartbeat Respiratory/Chest Respiratory/Chest: Reports cough; Denies dyspnea or orthopnea Gastrointestinal Gastrointestinal: Denies abdominal pain, diarrhea, nausea or vomiting Genitourinary Genitourinary ED: Denies dysuria, hematuria or urinary frequency Musculoskeletal Musculoskeletal: Denies arthralgias or myalgias Integumentary Denies abscess or rash Neurologic Neurologic: Denies headache(s) or weakness Psychiatric Psychiatric: Denies anxiety, depression, suicidal ideation or suicidal thoughts Endocrine Endocrinology: Denies polydipsia, polyphagia or polyuria Allergic/Immunologic Allergic/Immunologic ED: Denies mouth swelling, tongue swelling or urticaria EXAM Physical Exam Const Vital Signs: 03/22/21 22:56 03/22/21 23:00 03/22/21 23:02 Temperature 100.2 F H 100.2 F H Temperature Source Temporal Temporal Pulse Rate 75 74 Respiratory Rate 18 30 H Respiratory Effort Short of Breath Blood Pressure 140/86 H 163/64 H Blood Pressure Mean 104 97 Pulse Ox 88 92 Oxygen Delivery Method Room Air Nasal Cannula Oxygen Flow Rate (L/min) 3 03/22/21 23:11 Temperature Temperature Source Pulse Rate Respiratory Rate Respiratory Effort Blood Pressure Blood Pressure Mean Pulse Ox 93 Oxygen Delivery Method Nasal Cannula Oxygen Flow Rate (L/min) 3 Positive well nourished and well developed General Appearance ED: well developed HEENT Reports normocephalic, head/scalp atraumatic, TM's clear and moist mucous membranes Negative for trauma Tympanic Membrane ED: Yes TM's clear Eyes PERRL and EOMs intact bilaterally Neck no lymphadenopathy, supple and no JVD Resp normal respiratory effort and clear to auscultation bilaterally Cardio regular rate, regular rhythm and no murmurs GI normal to inspection, nondistended, normoactive bowel sounds and non-tender Palpation: soft Back/Spine no CVA tenderness and normal ROM Extremity normal to inspection General Extremety ED: Negative for edema General Extremity: Negative for edema Neuro oriented x3 and CN's II-XII intact bilaterally Neuro Narrative: Fall the patient is ANO x3. He seems lethargic and has minimal answers to questions. Sensorium / Orientation: lethargic Motor Exam: strength 5/5 throughout Psych Mood & Affect: Negative for depressed or tearful Skin no rashes or lesions noted and no wounds MDM MDM MDM Narrative Medical decision making narrative: Basic blood work was obtained. White count 17.4 (in the setting of recent dexamethasone use). Fibrinogen 429 with a D-d shital of 1.02. CRP at 9.08. Glucose 219. BUN of 34 with a creatinine of 0.9. Lactic acid is normal at 1.7. BNP at 87.9. Procalcitonin 0.16. Interpretation of the chest x-ray is multifocal infiltrates. CTA of the chest and CT of the brain was obtained. Plan is admission into the hospital. Lab Data Attestation: I reviewed the patient's lab results. Labs: Laboratory Results - last 24 hr 03/22/21 03/22/21 03/22/21 23:05 23:05 23:05 WBC 17.4 H RBC 4.07 L Hgb 10.6 L Hct 32.8 L MCV 80.6 MCH 26.0 L MCHC 32.3 RDW Std Deviation 44.7 H RDW Coeff of Rafael 15.6 H Plt Count 397 MPV 10.9 Immature Gran % (Auto) 4.000 H Neut % (Auto) 75.4 H Lymph % (Auto) 7.5 L [place] % (Auto) 11.9 H Eos % (Auto) 0.9 Baso % (Auto) 0.3 Absolute Neuts (auto) 13.1 H Absolute Lymphs (auto) 1.30 Nucleated RBC % 0.1 Differential Comment SCANNED Diff Path Review May foll Fibrinogen 429 D-Dimer Quant (PE/DVT) 1.02 H* Sodium 137 Potassium 4.3 Chloride 104 Carbon Dioxide 25.0 Anion Gap 8 BUN 34 H Creatinine 0.90 Estim Creat Clear Calc 80.18 Est GFR (MDRD) Af Amer 106 Est GFR (MDRD) Non-Af 88 BUN/Creatinine Ratio 37.7 H Glucose 219 H Lactic Acid Calcium 8.7 Total Bilirubin 0.40 AST 6 L ALT 22 Alkaline Phosphatase 80 Lactate Dehydrogenase 188 Total Creatine Kinase 24 L Troponin I High Sens 14 C-React Prot Ext Range 9.08 H B-Natriuretic Peptide Total Protein 6.3 L Albumin 3.0 L Globulin 3.3 Albumin/Globulin Ratio 0.9 Procalcitonin 03/22/21 03/22/21 03/22/21 23:05 23:05 23:05 WBC RBC Hgb Hct MCV MCH MCHC RDW Std Deviation RDW Coeff of Rafael Plt Count MPV Immature Gran % (Auto) Neut % (Auto) Lymph % (Auto) [place] % (Auto) Eos % (Auto) Baso % (Auto) Absolute Neuts (auto) Absolute Lymphs (auto) Nucleated RBC % Differential Comment Diff Path Review Fibrinogen D-Dimer Quant (PE/DVT) Sodium Potassium Chloride Carbon Dioxide Anion Gap BUN Creatinine Estim Creat Clear Calc Est GFR (MDRD) Af Amer Est GFR (MDRD) Non-Af BUN/Creatinine Ratio Glucose Lactic Acid 1.7 Calcium Total Bilirubin AST ALT Alkaline Phosphatase Lactate Dehydrogenase Total Creatine Kinase Troponin I High Sens C-React Prot Ext Range B-Natriuretic Peptide 87.9 Total Protein Albumin Globulin Albumin/Globulin Ratio Procalcitonin 0.16 H Radiography Diagnostic Testing: Clinical Impression(s) from Imaging Studies Chest X-Ray 03/22/21 23:15 IMPRESSION: Minimal bibasilar pulmonary infiltrates. Electronically Signed: Baron Olmstead DO at 23:32 EST Reading Location ID and State: [address] [place] [address] Tel [phone], Service support , Discharge Plan Dx/Rx/DC Orders Clinical Impression: COVID-19, Encephalopathy acute, Acute hypoxemic respiratory failure due to COVID-19 Disposition Disposition: [facility]
[2021-03-22 23:11] VITALS: O2SAT 93
--- NOTE | 2021-03-22 23:15 | RAD_ITS ---
STUDY: X-RAY CHEST REASON FOR EXAM: Male, 70 years old. Cough. COVID 19. TECHNIQUE: Single AP portable view of the chest. COMPARISON: 03/14/2021. FINDINGS: Limited inspiratory effort. There is mild groundglass infiltrates at the lung bases. There is no demonstrated pleural abnormality. Sternal cerclage wires are present from a prior sternotomy. The heart is normal in size. Normal mediastinum and sho. Normal visualized pulmonary arteries. There is atherosclerotic calcification of the aortic arch with tortuosity. There are diffuse degenerative changes of the visualized thoracic spine. Normal visualized ribs, clavicles, and shoulders. There is no demonstrated abnormality of the visualized soft tissue structures of the upper abdomen. RAD/Chest 1 View (Portable) IMPRESSION: Minimal bibasilar pulmonary infiltrates. Electronically Signed: Baron Olmstead DO at 23:32 EST ,
--- NOTE | 2021-03-22 23:28 | HP.PCM.HOS_ITS ---
HPI - General General Date of Admission: 03/22/21 Date of Service: 03/22/21 Chief Complaint: COVID, worseneing, dyspnea, confusion. 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, Chronic anemia/Fe deficiency, Diabetes mellitus type II, Obesity, Rheumatoid arthritis who presents to the [facility] ED on 03/22/21 with vaccination against COVID status with 2 dose series and booster with onset of COVID type symptoms now 10 days prior with fever, chills, frontal headaches, sore throat, altered sense of taste and smell, body aches, nausea and occasional loose stool with no associated vomiting in addition to cough and shortness of breath previously evaluated in the emergency room on 03/14/[address] chest at that time demonstrating bilateral Covid pneumonia but no pulmonary emboli discharged on oxygen supplementation however patient is continued to progressively worse with increased fatigue, malaise and dyspnea worse with any exertion. also notes that he has been intermittently confused and sleeping all the time. Patient even having difficulty walking secondary to severity of his progressive weakness and fatigue. Work-up in the ED included T1 100.4, heart rate 76, BP 155/78, respiratory rate 36, 93% on 3 L nasal cannula, pending CBC with WBC 17.4, hemoglobin 10.6, platelets 397 with left shift, pending D- dimer, fibrinogen, CMP with BUN/Cr 34/0.9, glucose 219, lactic acid 1.7, unremar kable hepatic profile, LDH 188, T CK 24, troponin XIV, CRP 9.08, procalcitonin and BNP pending, blood culture x2 pending per ED, chest x-ray with bilateral Covid pneumonia. [facility] Medical History Allergic rhinitis Arthritis Asthma Atherosclerosis of coronary artery of [place] heart without angina pectoris Bronchitis Cancer Chronic bronchitis Colon polyp COPD (chronic obstructive pulmonary disease) Gastritis History of basal cell carcinoma History of diabetes mellitus, type II History of non-Hodgkin's lymphoma History of pilonidal cyst Hyperlipidemia Iron deficiency anemia Iron deficiency anemia Lab test negative for COVID-19 virus Non-Hodgkin lymphoma Obesity Pneumonia Positive colorectal cancer screening using Cologuard test RA (rheumatoid arthritis) Tobacco use URI (upper respiratory infection) 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 complications Home Medications aspirin 81 mg tablet,delayed release 81 mg PO DAILY 09/28/19 [History Last Taken Unknown] rituximab 10 mg/mL concentrate,intravenous mg .ROUTE 09/28/19 [History Last Taken Unknown] cholecalciferol (vitamin D3) 25 mcg (1,000 unit) capsule 25 mcg PO DAILY 07/17/20 [History Last Taken Unknown] ferrous sulfate 325 mg (65 mg iron) tablet 325 mg PO BID #60 tab 07/18/20 [Rx Last Taken Unknown] metoprolol tartrate 25 mg tablet 25 mg PO BID #180 tab 09/12/20 [Rx Last Taken Unknown] nitroglycerin 0.4 mg sublingual tablet 0.4 mg SUBLINGUAL Q5M PRN #30 tab 09/25/20 [Rx Last Taken Unknown] cyanocobalamin (vitamin B-12) 1,000 mcg capsule 1,000 mcg PO DAILY 01/29/21 [History Last Taken Unknown] glimepiride 2 mg tablet 2 mg PO DAILY #90 tab 01/29/21 [Rx Last Taken Unknown] metformin 500 mg tablet 500 mg PO BID #180 tab 01/29/21 [Rx Last Taken Unknown] Allergy/AdvReac Type Severity Reaction Status Date / Time famotidine [From Pepcid] AdvReac Intermediate Diarrhea Verified 03/22/21 23:03 levofloxacin [From Levaquin] AdvReac Intermediate dizziness Verified 03/14/21 09:39 Family History Father Arthritis Bleeding disorder Hypertension Kidney disease Cancer Skin Anemia blood clots Emphysema lung Mother Colon cancer Cancer Lung Cancer Diabetes Brother Thyroid disorder Surgical History History of coronary artery stent placement (~10/22/13) History of excision of pilonidal cyst History of thymectomy Hx of lymph node excision Social History (Updated 03/23/21 @ 00:[address] Janice Mackey MD) household members: spouse Smoking Status: Current every day smoker tobacco type: cigarettes Smoking packs per day: 1 Smoking cigarettes per day: 20.0 Years smoked: 55 Smoking pack-years: 55.00 second hand exposure: Yes quit status: considering quitting alcohol intake: current alcohol intake frequency: holidays/special occasions only substance use type: does not use caffeine: Yes Type: coffee Number of servings: 3 what type of physical activity do you participate in: none frequency: does not exercise seatbelt use: always ROS ROS Narrative Admission Review of Systems: CONSTITUTIONAL: No weight loss, + fever, chills, weakness or fatigue. HEENT: + Headache, sore throat. Eyes: No visual loss, blurred vision, double vision or yellow sclerae. Ears, Nose, Throat: No hearing loss, sneezing. SKIN: No rash or itching, lesions, wounds. CARDIOVASCULAR: No chest pain, chest pressure or chest discomfort, palpitations, edema, orthopnea, syncopal events. RESPIRATORY: + shortness of breath, cough, No marked sputum, wheezing, hemoptysis. GASTROINTESTINAL: + anorexia, nausea without vomiting, diarrhea, No abdominal pain, melena, BRBPR. GENITOURINARY: No dysuria, frequency, urgency or retention. NEUROLOGICAL: + headache, No dizziness, syncope, paralysis, ataxia, numbness or tingling in the extremities, focal weakness, change in bowel or bladder control, seizure. MUSCULOSKELETAL: + muscle, back pain, joint pain or stiffness. HEMATOLOGIC: + anemia, bleeding or bruising. LYMPHATICS: No enlarged nodes. No history of splenectomy. PSYCHIATRIC: No history of depression or anxiety. ENDOCRINOLOGIC: No reports of sweating, cold or heat intolerance. No polyuria or polydipsia. ALLERGIES: No history of asthma, hives, eczema or rhinitis. Vital Signs Vital Signs Vital Signs: 03/22/21 22:56 03/22/21 23:00 03/22/21 23:02 Temperature 100.2 F H 100.2 F H Temperature Source Temporal Temporal Pulse Rate 75 74 Respiratory Rate 18 30 H Respiratory Effort Short of Breath Blood Pressure 140/86 H 163/64 H Blood Pressure Mean 104 97 Pulse Ox 88 92 Oxygen Delivery Method Room Air Nasal Cannula Oxygen Flow Rate (L/min) 3 03/22/21 23:11 Temperature Temperature Source Pulse Rate Respiratory Rate Respiratory Effort Blood Pressure Blood Pressure Mean Pulse Ox 93 Oxygen Delivery Method Nasal Cannula Oxygen Flow Rate (L/min) 3 Weight Weight: 226 lb 3.108 oz Body Mass Index (BMI) 31.5 Physical Exam Narrative Physical Examination: General: Awake, alert, oriented x 3 and cooperative, seated upright in the ED bed, fatigued and ill-appearing, mildly increased respiratory rate. Skin: Normal color, normal turgor, no icterus, no cyanosis. HEENT: AT/NC, EOMI, PERRLA, moderately dry MM, no carotid bruits or JVD noted. Lungs: Diffusely diminished, greater bases, increased respiratory rate, no rales, ronchi or wheezing. Heart: Regular rate with regular rhythm; no gallop, rub audible. Abdomen: Soft, obese, no obvious TTP, ND, distant hyperactive bowel sounds, no obvious HSM. Extremities: No cyanosis, no clubbing, bilateral lower extremity pedal not markedly pitting edema, chronic although patient's does report sometimes the right lower extremity is even worse secondary to prior dissection. Neurological: Patient awake, alert, oriented as noted, cognitive function intact; pupils equally reactive to light and accommodation, cranial nerves II- XII grossly normal, moving all 4 extremities, no focal deficits, strength severely globally decreased secondary to acute presentation. Psychiatric: Affect appears fatigued, ill-appearing, no acute evidence of depressive or anxiety feelings. Results Lab / Micro Data Result Diagrams: 03/22/21 23:05 03/22/21 23:05 Assessment & Plan Assessment/Plan (1) COVID-19 in immunocompromised patient: (2) Pneumonia due to COVID-19 virus: (3) Hypoxia: (4) Encephalopathy acute: (5) FTT (failure to thrive) in adult: PLAN: The patient is a 70 y/o M w/ PMHx: Chronic Asthma, CAD s/p PCI x 3, HTN, HLD, Chronic COPD, Tobacco use, NH Lymphoma w/ chronic intermittent RLE edema following dissection, Chronic anemia/Fe deficiency, Diabetes mellitus type II, Obesity, Rheumatoid arthritis who presents to the [facility] ED on 03/22/21 with vaccination against COVID status with 2 dose series and booster with onset of COVID type symptoms now 10 days progressively worsening with ED visit 03/14/2021 however since then he is continued decline prompting ED evaluation secondary to increased fatigue, malaise, intermittent appearance of encephalopathy and worsening dyspnea and failure to thrive. #1. Acute Encephalopathy, FTT Adult secondary to Acute Hypoxia secondary to Acute Bilateral Pneumonia secondary to Acute Viral Syndrome, COVID-19 with questionable superimposed bacterial infection: Will admit to the [facility] telemetry, maintain on COVID precautions given hypoxia for an additional 10 days for 20 day timeline of quarantine, will maintain on oxygen with wean as tolerated to room air, PRN albuterol, HOB, IS parameters w/ pending sputum cultures and urine antigens, pending ED initiated COVID panel including D-dimer, procalcitonin, CRP, CPK, Ferritin, LDH, trop and BNP, continue supportive care including q 2 hour turning including prone given no prone bed availability and judicious h ydration, closely monitor for worsening status for ARDS and multiorgan failure, will initiate and continue IV decadron x 10 doses, given presentation </= 10 days will also initiate IV remdesivir but defer to discretion of Infectious disease. If patient's labs seem more appropriate with a concurrent bacterial superimposed infection will initiate antibiotic therapy. #2. Diabetes mellitus type II with hyperglycemia: Hold oral home regimen, likely hyperglycemia associated with recent steroid usage, ADA diet, accu checks w/ ISS with adjustments as needed pending further blood sugar trending. #3. Rheumatoid arthritis: Patient is on rituximab outpatient, unfortunately this is contributing to his presentation, encourage continued outpatient follow- up with rheumatology. #4. History of non-Hodgkin lymphoma: Patient with prior dissection, has chronic intermittent right lower extremity swelling associated per report, considered in remission per her discussion. #5. Chronic anemia/iron deficiency: Admission hemoglobin 10.6, baseline more recently 9-10, stable, trend. #6. CAD: Status post PCI x3, will continue aspirin, metoprolol, not on statin therapy nor MEDHAT inhibitor, encourage outpatient follow-up. #7. Hypertension: Continue home regimen including metoprolol with hold para meters as needed, PRN hydralazine. #8. Hyperlipidemia: Per current list not on statin therapy, encourage outpatient follow-up. #9. Chronic COPD: Patient is not on any routine inhalers, may add if necessary, in the interim PRN albuterol, HOB, IS parameters. #10. Obesity: Weight loss and lifestyle changes encouraged. #11. Tobacco Abuse: Encouraged cessation, inpatient consultation per RT, NR if desired. #12. DVT prophylaxis: SCDs, Lovenox. #13. CODE status: Patient does not have healthcare power of patent attorney nor living will set up. Given presentation with hypoxia with Covid pneumonia, discussed CODE status at length including difference between FULL code, DNR-CCA and DNR-CC status. Following discussions about the differences in these status, requested Full Code. Amenable to airvo, BIPAP, remdesivir, barcitinib if appropriate. Advanced Care Planning Face to Face Time: 16 minutes. Charges/Coding Visit Charges Inpatient E&M: 12946 Init Hosp L3 Procedures Hospitalists Procedures: 15830 Advncd Care Plan 30 Min
[2021-03-22] MEDS: Acetaminophen 500 MG Tablet 1000 MG PO (23:37)
[2021-03-22 23:39] VITALS: BP 170/69; PULSE 76; RESP 20; TEMP 38; O2SAT 95
[2021-03-22 23:48] LABS: Absolute Neutrophil Count 13.1 X10^3/uL (2.0-7.7); Basophil# 0.05 X10^3/uL; Basophil% 0.3 % (0-1); Eosinophil# 0.16 X10^3/uL; Eosinophils% 0.9 % (0-5); Fibrinogen 429 mg/dl (203-444); Hematocrit 32.8 % (40-54); Hemoglobin 10.6 g/dL (13.0-16.5); Lymphocyte % 7.5 % (19-41); Mean Corp Hgb Conc 32.3 g/dL (32-36); Mean Corpuscular Volume 80.6 fL (80-94); Mean Platelet Vol. 10.9 fl (6.2-12.0); Monocyte# 2.06 X10^3/uL; Monocyte% 11.9 % (0-10); NRBC Flagged by Analyzer 0.1 % (0-5); Neutrophil % 75.4 % (47-70); POSITIVE DIFFERENTIAL YES; Platelet Count 397 K/mm3 (150-450); RBC Distribution Width CV 15.6 % (11.6-14.6); RBC Distribution Width SD 44.7 fl (35.1-43.9); Red Blood Count 4.07 M/mm3 (4.6-6.2); White Blood Count 17.4 K/mm3 (4.4-11.0)
[2021-03-22 23:51] LABS: ALB/GLOB Ratio 0.9 RATIO (0.9-2.4); AST(SGOT) 6 U/L (15-37); Alanine Aminotransfer ALT/SGPT 22 U/L (16-61); Alkaline Phosphatase 80 U/L (45-117); Anion Gap 8 (5-15); BUN 34 mg/dL (7-18); BUN/Creat Ratio 37.7 RATIO (10-20); CPK Total, Creatine Kinase 24 U/L (39-308); CRP 9.08 mg/L (0.0-3.0); Calcium,Total 8.7 mg/dL (8.5-10.1); Chloride 104 mmol/L (98-107); EST Glomerular Filtration Rate 88 mL/min (>60); Est Glom Filt Rate - Afr Amer 106 mL/min (>60); Estimated Creatinine Clearance 80.18 ml/min; Globulin 3.3 g/dL (2.2-4.2); Glucose 219 mg/dL (74-106); LDH 188 U/L (87-241); Lactic Acid 1.7 mmol/L (0.4-1.9); Potassium 4.3 mmol/L (3.5-5.1); Protein, Total 6.3 g/dL (6.4-8.2); Sodium Level 137 mmol/L (136-145); Troponin-I HS 14 pg/mL (3.0-78.0)
[2021-03-22 23:52] VITALS: BP 155/78; PULSE 74; RESP 36; O2SAT 93
[2021-03-22 23:56] LABS: Procalcitonin 0.16 ng/mL (0.00-0.09)
[2021-03-22 23:57] LABS: Differential Indicated SCAN CRITERIA MET
[2021-03-23] VITALS (10 sets, daily range): BP systolic 107–127; BP diastolic 48–56; PULSE 56–75; RESP 15–19; TEMP 36.4–37.3; O2SAT 95–98; BMI 30.2
[2021-03-23 00:16] LABS: Differential Comment SCANNED
[2021-03-23 00:23] LABS: D-Dimer Quantitative (DVT/PE) 1.02 FEU/ug/m (0.27-0.49)
--- NOTE | 2021-03-23 00:25 | CT_ITS ---
STUDY: CT BRAIN WITHOUT CONTRAST REASON FOR EXAM: Male, 70 years old. altered mental status RADIATION DOSAGE (If Supplied By Facility): CTDIvol = ( 44.99 ) mGy, DLP = ( 880.47 ) mGycm TECHNIQUE: Transaxial CT imaging of the brain was performed without administration of intravenous contrast material. Individualized dose optimization techniques were used for this CT. COMPARISON: No relevant priors. FINDINGS: Normal soft tissue structures. Normal calvarium. There is mild cerebral atrophy with widening of the extra-axial spaces and ventricular dilatation. There are areas of decreased attenuation within the white matter tracts of the supratentorial brain, consistent with microvascular disease changes. Normal basal ganglia and thalami. Normal brainstem. Normal cerebellum. There is no intracranial hemorrhage. There are no findings of an acute ischemic infarction. Multilevel mucosal thickening involving the bilateral maxillary, ethmoids, sphenoid and frontal sinuses consistent with pansinusitis. CT/Brain/Head without Contrast IMPRESSION: Chronic changes as described. No acute intracranial hemorrhage or space-occupying lesion. Bilateral pansinusitis. Electronically Signed: Radha Quintana MD at 2:08 EST ,
--- NOTE | 2021-03-23 00:25 | CT_ITS ---
STUDY: CTA CHEST REASON FOR EXAM: Male, 70 years old. pulmonary embolism RADIATION DOSAGE (If Supplied By Facility): CTDIvol = ( 24.33 ) mGy, DLP = ( 531.09 ) mGycm TECHNIQUE: The examination was performed with the intravenous administration of IV 100mL Isovue-370. Post-processing of the angiographic images was performed, with multiplanar reformation and 3D reconstruction. Individualized dose optimization techniques were used for this CT. COMPARISON: 03/14/2021. FINDINGS: Normal enhancement of the main pulmonary artery and right and left pulmonary arteries. Normal enhancement of the bilateral peripheral pulmonary arteries. There is no demonstrated pulmonary embolism. There is atherosclerotic calcification of the aortic arch with tortuosity. There is no demonstrated aortic dissection. Normal cardiac size. Coronary artery calcifications. Normal mediastinum. Normal hilar regions. Normal visualized trachea and bronchi. The lungs are slightly underexpanded. There are interstitial infiltrates with tree-in-bud appearance involving the right upper lobe, right middle lobe and bilateral lower lobes, more severe in the lower lobes with mild bronchiectasis which may be associated with aspiration bronchopneumonia, pulmonary tuberculosis, bronchiolitis, stable in the interval. Trace bilateral pleural effusions. Midline sternotomy wires. There are degenerative changes of thoracic spine. Normal visualized upper abdomen. CT/CTA Chest W/WO Contrast IMPRESSION: Negative CTA chest examination, without a demonstrated pulmonary embolism or arterial dissection. Interstitial pneumonia with tree-in-bud appearance as described above otherwise, identified on prior study and most severely involving the bilateral lower lobes. Electronically Signed: Radha Quintana MD at 2:21 EST ,
[2021-03-23 00:42] LABS: BNP,B-Type NATRIURETIC PEPTIDE 87.9 pg/mL (0-100)
--- NOTE | 2021-03-23 01:35 | NURSING ---
PANDEMIC DOCUMENTATION DATE: 03/23/21 TIME: 3350
[2021-03-23] MEDS: 0.9% Normal Saline 1,000 ML 100 ML IV (01:45)
[2021-03-23] MEDS: Ceftriaxone 1 GM/50 ML BAG IV ×2 (03:50→20:18)
[2021-03-23 05:57] LABS: Basophil# 0.05 X10^3/uL; Eosinophil# 0.21 X10^3/uL; Hematocrit 31.2 % (40-54); Hemoglobin 9.7 g/dL (13.0-16.5); Mean Corp Hgb Conc 31.1 g/dL (32-36); Mean Corpuscular Hgb 25.3 pg (27.0-32.0); Mean Corpuscular Volume 81.3 fL (80-94); Mean Platelet Vol. 10.5 fl (6.2-12.0); Monocyte# 2.03 X10^3/uL; NRBC Flagged by Analyzer 0 % (0-5); POSITIVE DIFFERENTIAL YES; Platelet Count 341 K/mm3 (150-450); RBC Distribution Width CV 15.7 % (11.6-14.6); Red Blood Count 3.84 M/mm3 (4.6-6.2); White Blood Count 15.4 K/mm3 (4.4-11.0)
[2021-03-23 06:06] LABS: Differential Indicated SCAN CRITERIA MET
[2021-03-23 06:34] LABS: Scan Smear per Review Criteria MANUAL DIFF
[2021-03-23 06:37] LABS: Lymphocyte 7 % (19-41); Metamyelocyte 3 % (0-1); Monocyte 7 % (0-10); Neutrophil-Band 4 % (0-5); Neutrophil-Segmented 79 % (47-70); Total Cells Counted 100 (MANUAL DIFF)
[2021-03-23 06:38] LABS: Neutrophil # 13.28 X10^3/uL (2.7-7.7)
[2021-03-23 06:39] LABS: Absolute Lymphocyte Count 1.08 X10^3/uL (0.83-4.51); Absolute Neutrophil Count 13.3 X10^3/uL (2.0-7.7); Lymphocyte # 1.08 X10^3/ul (0.83-4.51)
[2021-03-23 06:40] LABS: Platelet Estimate ADEQUATE (ADEQ); Red Cell Morphology NORM C+C NORMAL (NORM C&C)
[2021-03-23 06:45] LABS: ALB/GLOB Ratio 0.9 RATIO (0.9-2.4); AST(SGOT) 4 U/L (15-37); Alanine Aminotransfer ALT/SGPT 16 U/L (16-61); Albumin, Serum 2.6 g/dL (3.2-5.0); Alkaline Phosphatase 68 U/L (45-117); Anion Gap 6 (5-15); BUN 31 mg/dL (7-18); BUN/Creat Ratio 39.3 RATIO (10-20); Calcium,Total 8.3 mg/dL (8.5-10.1); Chloride 106 mmol/L (98-107); Creatinine, Serum 0.79 mg/dL (0.70-1.30); EST Glomerular Filtration Rate 103 mL/min (>60); Est Glom Filt Rate - Afr Amer 124 mL/min (>60); Estimated Creatinine Clearance 72.16 ml/min; Globulin 2.9 g/dL (2.2-4.2); Glucose 174 mg/dL (74-106); Potassium 4.2 mmol/L (3.5-5.1); Protein, Total 5.5 g/dL (6.4-8.2); Sodium Level 137 mmol/L (136-145)
--- NOTE | 2021-03-23 07:43 | PN.HOSP_ITS ---
Subjective Subjective Patient is a 70-year-old gentleman with multiple comorbidities who was brought to the emergency department with progressive generalized weakness as well as some episodic confusion patient had apparently tested positive for COVID-19 10 days prior to his admission. Patient was found to be hypoxic with oxygen saturation of 87% on room air. Placed on supplemental oxygen admitted to a monitored bed for subsequent management Objective Data Objective Data Vital Signs: Vital Signs Temp Pulse Resp BP Pulse Ox 98.9 F 68 19 H 107/50 L 95 03/23/21 02:00 03/23/21 02:00 03/23/21 02:00 03/23/21 02:00 03/23/21 07:38 Oxygen Flow Rate (L/min) 5 Oxygen Delivery Method Nasal Cannula Weight: 98.4 kg Body Mass Index (BMI) 30.2 Intake & Output: Intake and Output for Last 24 Hours 03/21/21 03/22/21 03/23/21 23:59 23:59 23:59 Intake Total 573.33 / 573.33 Balance 573.33 / 573.33 Lab / Micro Data Result Diagrams: 03/23/21 05:47 03/23/21 05:47 Labs: Laboratory Results - last 24 hr 03/22/21 23:05: WBC 17.4 H, RBC 4.07 L, Hgb 10.6 L, Hct 32.8 L, MCV 80.6, MCH 26.0 L, MCHC 32.3, RDW Std Deviation 44.7 H, RDW Coeff of Rafael 15.6 H, Plt Count 397, MPV 10.9, Immature Gran % (Auto) 4.000 H, Neut % (Auto) 75.4 H, Lymph % (Auto) 7.5 L, [place] % (Auto) 11.9 H, Eos % (Auto) 0.9, Baso % (Auto) 0.3, Absolute Neuts (auto) 13.1 H, Absolute Lymphs (auto) 1.30, Nucleated RBC % 0.1, Differential Comment SCANNED, Diff Path Review June03/22/21 23:05: Fibrinogen 429, D-Dimer Quant (PE/DVT) 1.02 H* 03/22/21 23:05: Sodium 137, Potassium 4.3, Chloride 104, Carbon Dioxide 25.0, Anion Gap 8, BUN 34 H, Creatinine 0.90, Estim Creat Clear Calc 80.18, Est GFR (MDRD) Af Amer 106, Est GFR (MDRD) Non-Af 88, BUN/Creatinine Ratio 37.7 H, Glucose 219 H, Calcium 8.7, Total Bilirubin 0.40, AST 6 L, ALT 22, Alkaline Phosphatase 80, Lactate Dehydrogenase 188, Total Creatine Kinase 24 L, Troponin I High Sens 14, C-React Prot Ext Range 9.08 H, Total Protein 6.3 L, Albumin 3.0 L, Globulin 3.3, Albumin/Globulin Ratio 0.9 03/22/21 23:05: Lactic Acid 1.7 03/22/21 23:05: B-Natriuretic Peptide 87.9 03/22/21 23:05: Procalcitonin 0.16 H 03/23/21 05:47: WBC 15.4 H, RBC 3.84 L, Hgb 9.7 L, Hct 31.2 L, MCV 81.3, MCH 25.3 L, MCHC 31.1 L, RDW Std Deviation 45.0 H, RDW Coeff of Rafael 15.7 H, Plt Count 341, MPV 10.5, Immature Gran % (Auto) MULTI SLIDE MACHINE TENDER, Neut % (Auto) MULTI SLIDE MACHINE TENDER, Lymph % (Auto) MULTI SLIDE MACHINE TENDER, [place] % (Auto) MULTI SLIDE MACHINE TENDER, Eos % (Auto) MULTI SLIDE MACHINE TENDER, Baso % (Auto) MULTI SLIDE MACHINE TENDER, Absolute Neuts (auto) 13.3 H, Absolute Lymphs (auto) 1.08, Total Counted 100, Neutrophils % (Manual) 79 H, Band Neutrophils % 4, Lymphocytes % (Manual) 7 L, Monocytes % (Manual) 7, Metamyelocytes % 3 H, Nucleated RBC % 0, Diff Path Review June, Platelet Estimate ADEQUATE, RBC Morphology NORM C+C 03/23/21 05:47: Sodium 137, Potassium 4.2, Chloride 106, Carbon Dioxide 25.0, Anion Gap 6, BUN 31 H, Creatinine 0.79, Estim Creat Clear Calc 72.16, Est GFR (MDRD) Af Amer 124, Est GFR (MDRD) Non-Af 103, BUN/Creatinine Ratio 39.3 H, Glucose 174 H, Calcium 8.3 L, Total Bilirubin 0.40, AST 4 L, ALT 16, Alkaline Phosphatase 68, Total Protein 5.5 L, Albumin 2.6 L, Globulin 2.9, Albumin/Globulin Ratio 0.9 Radiography Diagnostic Testing: Radiology Impression Chest X-Ray 03/22/21 23:15 IMPRESSION: Minimal bibasilar pulmonary infiltrates. Electronically Signed: Baron IshanDO at 23:32 EST Reading Location ID and State: [address] [place] [address] Tel [phone], Service support , Brain CT 03/23/21 00:25 IMPRESSION: Chronic changes as described. No acute intracranial hemorrhage or space-occupying lesion. Bilateral pansinusitis. Electronically Signed: Radha Quintana MD at 2:08 EST , Chest CTA 03/23/21 00:25 IMPRESSION: Negative CTA chest examination, without a demonstrated pulmonary embolism or arterial dissection. Interstitial pneumonia with tree-in-bud appearance as described above otherwise, identified on prior study and most severely involving the bilateral lower lobes. Electronically Signed: Radha Quintana MD at 2:21 EST , Physical Exam Narrative GENERAL: cooperative HEENT: Atraumatic; EYES; Anicteric, Normal Conjunctiva NECK; supple, normal thyroid, RESPIRATORY: Diminished to auscultation CARDIOVASCULAR: Regular S1 S2, GI: soft, normoactive bowel sounds, : No Renal angle tenderness; EXTREMITIES: No edema, no clubbing, MUSCULOSKELETAL: no muscle waisting NEURO: Awake; no lateralizing signs. SKIN: No Rash PSYCH; Flat affect Assessment & Plan Assessment/Plan (1) COVID-19 in immunocompromised patient: (2) Pneumonia due to COVID-19 virus: (3) Hypoxia: (4) Encephalopathy acute: (5) FTT (failure to thrive) in adult: PLAN: Patient is a 70-year-old gentleman with multiple comorbidities who was brought to the emergency department with progressive generalized weakness as well as some episodic confusion patient had apparently tested positive for COVID-19 10 days prior to his admission. Patient was found to be hypoxic with oxygen saturation of 87% on room air. Placed on supplemental oxygen admitted to a monitored bed for subsequent management 1. Acute metabolic encephalopathy ?Secondary to COVID-19 infection. Patient has been admitted to a monitored bed with treatment of the underlying condition 2. Acute hypoxic respiratory failure ?Patient oxygen saturation on admission was 87% on room air. Was placed on supplemental oxygen and admitted to regular nursing floor. Patient progress being monitored with continuous pulse oximetry 3. Acute COVID-19 pneumonia ?Imaging studies obtained on admission demonstrated Interstitial pneumonia with tree-in-bud appearance. With patient having elevated WBC count as well as elevated procalcitonin patient was empirically started on antibiotic therapy. Patient outside the window for remdesivir. Patient was started on Decadron on 03/14/2021 from the ED scheduled to complete Decadron therapy on 03/23/2021 4. Diabetes mellitus type II -patient's oral hypoglycemics held. Placed on long acting insulin, Accu-Cheks a.c. and at bedtime and covered with sliding scale insulin 5. Rheumatoid arthritis Patient is on rituximab as outpatient. Held 6. Non Hodgkin's lymphoma ?Apparently in remission 7. Coronary artery disease ?With previous PCI of an LAD RCA and mid circumflex lesions 8. Dyslipidemia ?Per history currently not on any statin therapy 9. Tobacco dependence - Counseled on cessation, offered nicotine patch for tobacco cravings 10. Anemia - Secondary to chronic disorder monitoring H&H and transfuse if patient becomes symptomatic or hemoglobin falls below 7 11. Class I obesity with BMI of 30.3 ?Weight loss advised 12. Hypertension - Blood pressure controlled, home medications continued with dose adjustment as needed 13. DVT prophylaxis ?Lovenox 1 mg/kg body weight every 12 per NIH guidelines Charges/Coding Visit Charges Inpatient E&M: 93472 Subs Hosp L3
[2021-03-23 08:00] LABS: Bedside Glucose 116 mg/dL (70-110)
[2021-03-23] MEDS: Aspirin E.C. 81 MG Tablet PO (09:19)
[2021-03-23] MEDS: dexAMETHasone 4 MG/ML Vial 6 MG IV (09:19)
[2021-03-23] MEDS: Enoxaparin 30 MG/0.3 ML Syringe SC (09:19)
[2021-03-23] MEDS: Metoprolol Tartrate 25 MG Tablet PO ×2 (09:20→20:23)
[2021-03-23] MEDS: Ferrous Sulfate 325 MG Tablet PO ×2 (09:20→17:15)
--- NOTE | 2021-03-23 09:47 | CASEMGMT ---
TARAH DEL RIO assessment: Initial transition planning/care coordination assessment done with pt's via phone d/t pt confusion. TARAH DEL RIO introduced self and role at [facility], pt voices understanding and consents to assessment. Pt is currently on 5L nc. Pt is A/Ox2 per nursing notes. states that pt has been wearing to 2-3L at home after dx'd in ED. states they have pulse ox at home and states no concerns getting resources once home. Care providers, pharmacy, and demographics verified. Presentation: Pt c/o COVID x10 days with cardiac hx, with w/ weakness/unsteady on feet Admitting dx: Encephalopathy, COVID, hypoxia PCP: Suman Specialists: lara Singleton Preferred Pharmacy: [facility] Insurance: [email or web address] Prescription Benefit: [email or web address] Living Will/HPOA: Pt does not have LW/HPOA and declines AD info. LNOK: Ca Quintana, Living Arrangements: Pt lives with in 1 story home with 1 step in and states no concerns at home. Pt is independent with ADL's. Transportation: Pt drives self and states no transportation concerns. DME/HHC: Pt has a pulse ox, glucometer, and 2L continuous home oxygen thru [employer]. states no need for any further DME. Pt states no hx of HHC or SNF. states pt normally very active, assists her with any needs, and able to care for self. states no concerns with pt going home at time of discharge. Pt is retired. Pt states does smoke 1/2 pack cigarettes daily and occasionally drinks ETOH. voices no further concerns/needs. CM to follow for therapy notes, increased home oxygen need, and any further discharge planning/needs. Advised to ask for CM if any further questions/concerns/needs arise, voices understanding. Pt Goal: Home Plan: Home w/ [place] TARAH DEL RIO
[2021-03-23] MEDS: Insulin Lispro 100 UNIT/ML INSULN.PEN SC ×2 (11:41→16:10)
[2021-03-23 12:01] LABS: Bedside Glucose 199 mg/dL (70-110)
[2021-03-23 12:26] LABS: Pathologist Review Reviewed
[2021-03-23 12:46] LABS: Pathologist Review Reviewed
--- NOTE | 2021-03-23 14:52 | CASEMGMT ---
Green sheet on chart for increased home oxygen. CM to follow PT/OT. SStcarlton RN CM
[2021-03-23 16:20] LABS: Bedside Glucose 297 mg/dL (70-110)
[2021-03-23] MEDS: Atorvastatin Calcium 40 MG Tablet PO (20:22)
[2021-03-23] MEDS: Enoxaparin 100 MG/ML Syringe 90 MG SC (20:23)
[2021-03-23] MEDS: Insulin Lispro 100 UNIT/ML INSULN.PEN 20 UNIT SC (20:37)
[2021-03-23 21:31] LABS: Bedside Glucose 487 mg/dL (70-110)
[2021-03-24] MEDS: Insulin Lispro 100 UNIT/ML INSULN.PEN SC ×3 (06:35→16:40)
[2021-03-24] MEDS: Ferrous Sulfate 325 MG Tablet PO ×2 (07:25→16:40)
[2021-03-24] MEDS: Enoxaparin 100 MG/ML Syringe 90 MG SC ×2 (09:20→20:45)
[2021-03-24 09:25] VITALS: PULSE 70
[2021-03-24] MEDS: Metoprolol Tartrate 25 MG Tablet PO ×2 (09:25→20:45)
[2021-03-24] MEDS: Aspirin E.C. 81 MG Tablet PO (09:25)
[2021-03-24] MEDS: dexAMETHasone 4 MG/ML Vial 6 MG IV (09:25)
--- NOTE | 2021-03-24 13:53 | PN_ITS ---
DATE OF SERVICE 03/24/2021 SUBJECTIVE-patient was seen and examined today on PCU, he is currently on room air at rest but it was noted on ambulation that his oxygen saturation dropped below 90. Patient tells me he has oxygen at home that was set up recently after he was diagnosed as having Covid. Patient is still on remdesivir at this time, his remdesivir dose will complete on 03/26/2021. OBJECTIVE-temperature 97.7, pulse 62, respiratory rate 18, blood pressure 127/49. GENERAL: cooperative, patient does not appear in any distress HEENT: Atraumatic; normocephalic EYES; Anicteric, Normal Conjunctiva NECK; supple, normal thyroid, RESPIRATORY: Diminished to auscultation, no rales rhonchi or wheezes were noted CARDIOVASCULAR:? Regular S1 S2, no murmurs or rubs are noted GI:? soft, normoactive bowel sounds, : No Renal angle tenderness; EXTREMITIES:? No edema, no clubbing, MUSCULOSKELETAL:? no muscle wasting NEURO:? Awake;?no lateralizing signs. SKIN:? No Rash PSYCH; normal affect, patient does not appear depressed or anxious ASSESSMENT/PLAN Patient is a 70-year-old gentleman with multiple comorbidities who was brought to the emergency department with progressive generalized weakness as well as some episodic confusion patient had apparently tested positive for COVID-19 10 days prior to his admission.? Patient was found to be hypoxic with oxygen saturation of 87% on room air.? Placed on supplemental oxygen admitted to a monitored bed for subsequent management 1.? Acute metabolic encephalopathy Secondary to COVID-19 infection-patient's mental status appears to be normal today, he is alert and responds appropriately to questions. 2.? Acute hypoxic respiratory failure Patient oxygen saturation on admission was 87% on room air.? Was placed on supplemental oxygen and admitted to regular nursing floor.? Patient progress being monitored with continuous pulse oximetry 3.? Acute COVID-19 pneumonia Imaging studies obtained on admission demonstrated Interstitial pneumonia with tree-in-bud appearance.? With patient having elevated WBC count as well as elevated procalcitonin patient was empirically started on antibiotic therapy.? Patient outside the window for remdesivir.? Patient was started on Decadron on 03/14/2021 from the ED scheduled to complete Decadron therapy on 03/23/2021 4.? Diabetes mellitus type II -patient's oral hypoglycemics held. Placed on long-acting insulin, Accu-Cheks a.c. and at bedtime and covered with sliding scale insulin 5.? Rheumatoid arthritis Patient is on rituximab as outpatient.? Held 6.? Non-Hodgkin?s lymphoma Apparently in remission 7.? Coronary artery disease With previous PCI of an LAD RCA and mid circumflex lesions 8.? Dyslipidemia Per history currently not on any statin therapy 9.? Tobacco dependence - Counseled on cessation, offered nicotine patch for tobacco cravings 10.? Anemia - Secondary to chronic medical disorders monitoring H&H and transfuse if patient becomes symptomatic or hemoglobin falls below 7 11.? Class I obesity with BMI of 30.3 Weight loss advised 12.? Hypertension - Blood pressure controlled; home medications continued with dose adjustment as needed 13.? DVT prophylaxis Lovenox 1 mg/kg body weight every 12 per NIH guidelines
[2021-03-24] MEDS: Insulin Lispro 100 UNIT/ML INSULN.PEN 10 UNIT SC (17:05)
[2021-03-24 18:56] LABS: ALB/GLOB Ratio 0.8 RATIO (0.9-2.4); AST(SGOT) 6 U/L (15-37); Alanine Aminotransfer ALT/SGPT 18 U/L (16-61); Albumin, Serum 2.5 g/dL (3.2-5.0); Alkaline Phosphatase 67 U/L (45-117); Anion Gap 7 (5-15); BUN 30 mg/dL (7-18); BUN/Creat Ratio 40.2 RATIO (10-20); Calcium,Total 8.3 mg/dL (8.5-10.1); Chloride 104 mmol/L (98-107); Creatinine, Serum 0.75 mg/dL (0.70-1.30); Estimated Creatinine Clearance 72.16 ml/min; Globulin 3.1 g/dL (2.2-4.2); Glucose 278 mg/dL (74-106); Magnesium 1.9 mg/dL (1.6-2.6); Potassium 4.1 mmol/L (3.5-5.1); Protein, Total 5.6 g/dL (6.4-8.2); Sodium Level 136 mmol/L (136-145)
[2021-03-24 19:24] LABS: Bedside Glucose 263 mg/dL (70-110)
[2021-03-24 19:25] LABS: Bedside Glucose > 500 mg/dL (70-110)
[2021-03-24 19:25] LABS: Bedside Glucose 385 mg/dL (70-110)
[2021-03-24] MEDS: Ceftriaxone 1 GM/50 ML BAG IV (20:40)
[2021-03-24 20:45] VITALS: PULSE 70
[2021-03-24] MEDS: Atorvastatin Calcium 40 MG Tablet PO (20:45)
[2021-03-24 21:20] LABS: Bedside Glucose > 500 mg/dL (70-110)
[2021-03-24] MEDS: Insulin Lispro 100 UNIT/ML INSULN.PEN 20 UNIT SC (21:40)
[2021-03-24 22:25] LABS: Absolute Lymphocyte Count 0.89 X10^3/uL (0.83-4.51); Absolute Neutrophil Count 9.5 X10^3/uL (2.0-7.7); Basophil# 0.03 X10^3/uL; Basophil% 0.2 % (0-1); Eosinophil# 0.01 X10^3/uL; Eosinophils% 0.1 % (0-5); Hematocrit 29.8 % (40-54); Hemoglobin 9.8 g/dL (13.0-16.5); Lymphocyte # 0.89 X10^3/ul (0.83-4.51); Lymphocyte % 7.4 % (19-41); Mean Corp Hgb Conc 32.9 g/dL (32-36); Mean Corpuscular Hgb 26.4 pg (27.0-32.0); Mean Corpuscular Volume 80.3 fL (80-94); Mean Platelet Vol. 10.7 fl (6.2-12.0); Monocyte# 1.19 X10^3/uL; Monocyte% 9.9 % (0-10); NRBC Flagged by Analyzer 0 % (0-5); Neutrophil # 9.49 X10^3/uL (2.7-7.7); Neutrophil % 78.6 % (47-70); Platelet Count 326 K/mm3 (150-450); RBC Distribution Width CV 15.6 % (11.6-14.6); RBC Distribution Width SD 45.1 fl (35.1-43.9); Red Blood Count 3.71 M/mm3 (4.6-6.2); White Blood Count 12.1 K/mm3 (4.4-11.0)
[2021-03-25 02:45] VITALS: BP 133/58; PULSE 55; RESP 16; TEMP 36.6; O2SAT 92
[2021-03-25 02:59] VITALS: PULSE 47
[2021-03-25 05:51] LABS: Absolute Neutrophil Count 12.4 X10^3/uL (2.0-7.7); Basophil# 0.02 X10^3/uL; Basophil% 0.1 % (0-1); Eosinophil# 0.01 X10^3/uL; Eosinophils% 0.1 % (0-5); Hematocrit 29.1 % (40-54); Hemoglobin 9.3 g/dL (13.0-16.5); Mean Corpuscular Hgb 25.9 pg (27.0-32.0); Mean Corpuscular Volume 81.1 fL (80-94); Mean Platelet Vol. 10.8 fl (6.2-12.0); Monocyte# 1.32 X10^3/uL; Monocyte% 8.8 % (0-10); NRBC Flagged by Analyzer 0 % (0-5); Neutrophil % 82.3 % (47-70); Platelet Count 312 K/mm3 (150-450); RBC Distribution Width CV 15.7 % (11.6-14.6); RBC Distribution Width SD 45.5 fl (35.1-43.9); Red Blood Count 3.59 M/mm3 (4.6-6.2); White Blood Count 15.1 K/mm3 (4.4-11.0)
[2021-03-25] MEDS: Insulin Lispro 100 UNIT/ML INSULN.PEN SC ×2 (06:42→11:46)
[2021-03-25 07:00] VITALS: PULSE 48
[2021-03-25 07:05] LABS: Bedside Glucose 223 mg/dL (70-110)
[2021-03-25 07:08] LABS: ALB/GLOB Ratio 0.8 RATIO (0.9-2.4); AST(SGOT) 5 U/L (15-37); Alanine Aminotransfer ALT/SGPT 22 U/L (16-61); Albumin, Serum 2.4 g/dL (3.2-5.0); Alkaline Phosphatase 63 U/L (45-117); Anion Gap 7 (5-15); BUN 35 mg/dL (7-18); BUN/Creat Ratio 50.4 RATIO (10-20); Calcium,Total 8.6 mg/dL (8.5-10.1); Chloride 105 mmol/L (98-107); Creatinine, Serum 0.69 mg/dL (0.70-1.30); EST Glomerular Filtration Rate 119 mL/min (>60); Est Glom Filt Rate - Afr Amer 144 mL/min (>60); Estimated Creatinine Clearance 72.16 ml/min; Globulin 3.1 g/dL (2.2-4.2); Glucose 252 mg/dL (74-106); Potassium 4.3 mmol/L (3.5-5.1); Protein, Total 5.5 g/dL (6.4-8.2); Sodium Level 136 mmol/L (136-145)
[2021-03-25 08:45] VITALS: BP 121/58; PULSE 64; RESP 16; TEMP 37.1; O2SAT 93
[2021-03-25 09:07] VITALS: PULSE 64
[2021-03-25] MEDS: Ferrous Sulfate 325 MG Tablet PO (09:07)
[2021-03-25] MEDS: Enoxaparin 100 MG/ML Syringe 90 MG SC (09:07)
[2021-03-25] MEDS: dexAMETHasone 4 MG/ML Vial 6 MG IV (09:07)
[2021-03-25] MEDS: Aspirin E.C. 81 MG Tablet PO (09:07)
[2021-03-25] MEDS: Metoprolol Tartrate 25 MG Tablet PO (09:07)
[2021-03-25 09:18] VITALS: O2SAT 91; O2SAT 94
--- NOTE | 2021-03-25 09:56 | PCM.DC ---
Discharge Instructions Diet Discharge Diet: 1800 Calorie Control Diet Activity Discharge Activity: Return to Normal Activity Weight Bearing Status: Full weight bearing Follow Up Care Test Results: Test results from this visit will be discussed in further detail at your follow-up appointment, if applicable. Discharge Plan Admission Admit Date/Time: 03/22/21 23:31 Primary Reason for Your Visit: covid-19 Attending Provider: Lalo Dewitt Primary Care Provider: Donna Will Instructions Additional Instructions / Restrictions: It is recommended that you self quarantine for 20 days after your first Covid symptoms Discharge Orders/Prescriptions Prescriptions: Continued aspirin [Adult Aspirin Regimen] 81 mg tablet,delayed release (DR/EC) 81 mg PO DAILY RF: 0 cholecalciferol (vitamin D3) 25 mcg (1,000 unit) capsule 25 mcg PO DAILY RF: 0 nitroglycerin [Nitrostat] 0.4 mg tablet, sublingual 0.4 mg SUBLINGUAL Q5M PRN (Reason: chest pain) Qty: 30 RF: 0 cyanocobalamin (vitamin B-12) 1,000 mcg capsule 1,000 mcg PO DAILY RF: 0 metformin 500 mg tablet 500 mg PO BID Qty: 180 RF: 1 glimepiride 2 mg tablet 2 mg PO DAILY Qty: 90 RF: 1 ferrous sulfate 325 mg (65 mg iron) tablet 325 mg PO BID Qty: 60 RF: 0 metoprolol tartrate 25 mg tablet 25 mg PO BID Qty: 180 RF: 1 Discontinued rituximab 10 mg/mL concentrate,intravenous 10 mg/mL concentrate 10 mg .Route UD RF: 0 Referrals / Follow Up: Donna Will MD [Primary Care Provider] - Within 2 Weeks Disposition Disposition (needs filled in before D/C Order can be placed): Home, Self Care
[2021-03-25 11:51] LABS: Bedside Glucose 389 mg/dL (70-110)
--- NOTE | 2021-03-25 15:54 | PCM.DC.SUM ---
Providers Date of Admission: 03/22/21 Date of Discharge: 03/25/21 Primary Care Physician: Dr. Donna Will MD Reason For Visit: ENCEPHALOPATHY, HYPOXIA, COVID 19 Diagnosis Discharge Diagnosis (1) COVID-19 in immunocompromised patient: Status: Acute Code(s): U07.1 - COVID-19; D84.9 - Immunodeficiency, unspecified (2) Pneumonia due to COVID-19 virus: Status: Acute Code(s): U07.1 - COVID-19; J12.82 - Pneumonia due to coronavirus disease 2019 (3) Hypoxia: Status: Acute Code(s): R09.02 - Hypoxemia (4) Encephalopathy acute: Status: Acute Code(s): G93.40 - Encephalopathy, unspecified (5) FTT (failure to thrive) in adult: Status: Acute Code(s): R62.7 - Adult failure to thrive Plan: 1. COVID-19 pneumonia #2 hypoxic respiratory failure secondary to COVID-19 pneumonia #3 metabolic encephalopathy secondary to COVID-19 pneumonia #4 chronic obstructive pulmonary disease #5 type 2 diabetes #6 atherosclerotic heart disease #7 essential hypertension #8 rheumatoid arthritis Medications at Discharge Home Medications aspirin 81 mg tablet,delayed release 81 mg PO DAILY 09/28/19 cholecalciferol (vitamin D3) 25 mcg (1,000 unit) capsule 25 mcg PO DAILY 07/17/20 ferrous sulfate 325 mg (65 mg iron) tablet 325 mg PO BID #60 tab 07/18/20 metoprolol tartrate 25 mg tablet 25 mg PO BID #180 tab 09/12/20 nitroglycerin 0.4 mg sublingual tablet 0.4 mg SUBLINGUAL Q5M PRN #30 tab 09/25/20 cyanocobalamin (vitamin B-12) 1,000 mcg capsule 1,000 mcg PO DAILY 01/29/21 glimepiride 2 mg tablet 2 mg PO DAILY #90 tab 01/29/21 metformin 500 mg tablet 500 mg PO BID #180 tab 01/29/21 Hospital Course Operations None Procedures None Summary of Care Provided Minutes Spent on Discharge: 33 Hospital Course: 70-year-old white male was seen in the emergency room at [facility] with chief complaint of shortness of breath. He was on day 10 of his course of COVID-19, patient was vaccinated. Patient felt that he was short of breath and needed evaluation. Patient had been set up for home oxygen on 03/14/2021. Patient's brought the patient in for evaluation also because of some confusion she noted by the patient at home. Work-up in the emergency room included chest x-rays which showed multifocal infiltrates, CTA of the chest was performed but showed no evidence of pulmonary emboli, CT of the brain was unremarkable. Patient's labs were remarkable for white blood cell count of 17.4, glucose was 219, and patient's D-dimer was 1.02. Patient was admitted to PCU for acute encephalopathy and hypoxia, it was felt by the admitting physician that the patient had a bacterial infection, this examiner did not feel on examination of the patient that he had a bacterial pneumonia. Patient was placed on IV remdesivir and was given dexamethasone. Patient's respiratory status improved over the next several days and he was able to be weaned off oxygen. Patient was examined on 03/25/2021: On examination he appeared in good health and spirits. Vital signs as documented. Skin warm and dry and without overt rashes. Neck without JVD, neck was supple, trachea midline, thyroid was normal. Lungs clear bilaterally, normal air movement was noted. Heart exam notable for regular rhythm, normal sounds and absence of murmurs, rubs or gallops. Abdomen unremarkable and without evidence of organomegaly, masses, or abdominal aortic enlargement. Bowel sounds are present, abdomen is not distended. Extremities nonedematous, no cyanosis was noted, no clubbing was noted. Neuro: Cranial nerves II through XII are grossly intact, no focal motor deficits were noted, sensation to light touch and pinprick intact, motor exam 5/5 throughout. Psych: Patient is alert and oriented x3, he does not appear anxious or depressed, he does not appear agitated. On 03/25/2021, patient was felt to be stable for discharge home, he did not require oxygen at rest or during ambulation. Patient had completed a 10-day course in total of dexamethasone and so he was instructed not to take anymore dexamethasone as an outpatient. I did not feel the patient had a bacterial pneumonia. He did receive several days of IV antibiotics during his hospitalization. Weight / BMI Weight Weight: 99.5 kg Body Mass Index (BMI) 30.2 ABG / Lab / Microbiology Data Result Diagrams: 03/25/21 05:25 03/25/21 05:25 Laboratory: Laboratory Results - last 24 hr 03/24/21 05:31: WBC 12.1 H, RBC 3.71 L, Hgb 9.8 L, Hct 29.8 L, MCV 80.3, MCH 26.4 L, MCHC 32.9 D, RDW Std Deviation 45.1 H, RDW Coeff of Rafael 15.6 H, Plt Count 326, MPV 10.7, Immature Gran % (Auto) 3.800 H, Neut % (Auto) 78.6 H, Lymph % (Auto) 7.4 L, [place] % (Auto) 9.9, Eos % (Auto) 0.1, Baso % (Auto) 0.2, Absolute Neuts (auto) 9.5 H, Absolute Lymphs (auto) 0.89, Nucleated RBC % 0 03/24/21 05:31: Sodium 136, Potassium 4.1, Chloride 104, Carbon Dioxide 25.0, Anion Gap 7, BUN 30 H, Creatinine 0.75, Estim Creat Clear Calc 72.16, Est GFR (MDRD) Af Amer TNP, Est GFR (MDRD) Non-Af TNP, BUN/Creatinine Ratio 40.2 H, Glucose 278 H, Calcium 8.3 L, Magnesium 1.9, Total Bilirubin 0.30, AST 6 L, ALT 18, Alkaline Phosphatase 67, Total Protein 5.6 L, Albumin 2.5 L, Globulin 3.1, Albumin/Globulin Ratio 0.8 L 03/24/21 06:34: POC Glucose 263 H 03/24/21 11:30: POC Glucose 385 H 03/24/21 16:38: POC Glucose > 500 H* 03/24/21 20:39: POC Glucose > 500 H* 03/25/21 05:25: WBC 15.1 H, RBC 3.59 L, Hgb 9.3 L, Hct 29.1 L, MCV 81.1, MCH 25.9 L, MCHC 32.0, RDW Std Deviation 45.5 H, RDW Coeff of Rafael 15.7 H, Plt Count 312, MPV 10.8, Immature Gran % (Auto) 2.700 H, Neut % (Auto) 82.3 H, Lymph % (Auto) 6.0 L, [place] % (Auto) 8.8, Eos % (Auto) 0.1, Baso % (Auto) 0.1, Absolute Neuts (auto) 12.4 H, Absolute Lymphs (auto) 0.90, Nucleated RBC % 0 03/25/21 05:25: Sodium 136, Potassium 4.3, Chloride 105, Carbon Dioxide 24.0, Anion Gap 7, BUN 35 H, Creatinine 0.69 L, Estim Creat Clear Calc 72.16, Est GFR (MDRD) Af Amer 144, Est GFR (MDRD) Non-Af 119, BUN/Creatinine Ratio 50.4 H, Glucose 252 H, Calcium 8.6, Total Bilirubin 0.30, AST 5 L, ALT 22, Alkaline Phosphatase 63, Total Protein 5.5 L, Albumin 2.4 L, Globulin 3.1, Albumin/Globulin Ratio 0.8 L 03/25/21 06:41: POC Glucose 223 H 03/25/21 11:45: POC Glucose 389 H Microbiology: Microbiology 03/23/21 09:29 Sputum, Expectorated/Coughed Gram Stain - Final 03/23/21 09:29 Sputum, Expectorated/Coughed Respiratory Culture - Final 03/22/21 23:22 Blood Culture (Wb) - Anticubital Left Blood Culture - Preliminary No growth in 48 hours. 03/22/21 23:05 Blood Culture (Wb) - Anticubital Right Blood Culture - Preliminary No growth in 48 hours. 03/23/21 09:29 Urine, Clean Catch Streptococcus pneumoniae Antigen (M - Final 03/23/21 Unknown Urine, Clean Catch Legionella Antigen - Final D/C Instructions Discharge Diet: 1800 Calorie Control Diet Weight Bearing Status: Full weight bearing Meaningful Use Info Meaningful Use Diagnoses (Choose all that apply): None applicable Discharge Plan Admission Admit Date/Time: 03/22/21 23:31 Primary Reason for Your Visit: covid-19 Attending Provider: Lalo Dewitt Primary Care Provider: Donna Will Instructions Additional Instructions / Restrictions: It is recommended that you self quarantine for 20 days after your first Covid symptoms Discharge Orders/Prescriptions Prescriptions: Continued aspirin [Adult Aspirin Regimen] 81 mg tablet,delayed release (DR/EC) 81 mg PO DAILY RF: 0 cholecalciferol (vitamin D3) 25 mcg (1,000 unit) capsule 25 mcg PO DAILY RF: 0 nitroglycerin [Nitrostat] 0.4 mg tablet, sublingual 0.4 mg SUBLINGUAL Q5M PRN (Reason: chest pain) Qty: 30 RF: 0 cyanocobalamin (vitamin B-12) 1,000 mcg capsule 1,000 mcg PO DAILY RF: 0 metformin 500 mg tablet 500 mg PO BID Qty: 180 RF: 1 glimepiride 2 mg tablet 2 mg PO DAILY Qty: 90 RF: 1 ferrous sulfate 325 mg (65 mg iron) tablet 325 mg PO BID Qty: 60 RF: 0 metoprolol tartrate 25 mg tablet 25 mg PO BID Qty: 180 RF: 1 Discontinued rituximab 10 mg/mL concentrate,intravenous 10 mg/mL concentrate 10 mg .Route UD RF: 0 Referrals / Follow Up: Donna Will MD [Primary Care Provider] - Within 2 Weeks Disposition Disposition (needs filled in before D/C Order can be placed): Home, Self Care Charges/Coding Visit Charges Inpatient E&M: 30429 Disch Hosp
== END 2021-03-25 13:36 | disposition home or self-care (01) | DRG 177 ==
LOC: ED 23:25 → PCU 03-23 01:06
PROVIDERS: Internal Medicine; Admitting Provider Family Medicine; Emergency Provider Emergency Medicine; PCP Internal Medicine; Visit Provider Internal Medicine
DX: U07.1 COVID-19 (principal); J96.01 Acute respiratory failure with hypoxia; J12.82 Pneumonia due to coronavirus disease 2019; G93.41 Metabolic encephalopathy; J44.0 Chronic obstructive pulmonary disease with (acute) lower respiratory infection; J84.9 Interstitial pulmonary disease, unspecified; R62.7 Adult failure to thrive; E11.65 Type 2 diabetes mellitus with hyperglycemia; D50.9 Iron deficiency anemia, unspecified; M06.9 Rheumatoid arthritis, unspecified; I10 Essential (primary) hypertension; I25.10 Atherosclerotic heart disease of native coronary artery without angina pectoris; F17.210 Nicotine dependence, cigarettes, uncomplicated; E78.5 Hyperlipidemia, unspecified; Z79.84 Long term (current) use of oral hypoglycemic drugs; Z79.82 Long term (current) use of aspirin; Z68.30 Body mass index [BMI] 30.0-30.9, adult; E66.9 Obesity, unspecified; Z79.899 Other long term (current) drug therapy; Z85.72 Personal history of non-Hodgkin lymphomas
CPT/HCPCS: 36415; 70450; 71045; 71275; 80053; 82550; 82962; 83605; 83615; 83735; 83880; 84145; 84484; 85025; 85379; 85384; 86140; 87040; 87070; 87205; 87449; 93005; 94762; 97162; 97166; 99251; 99285; 99406; J7030; J7050; Q9967; G0463; J0248

== ENCOUNTER 2021-04-05 09:43 | Outpatient (CLI) | payer MEDICARE, SELFPAY ==
--- NOTE | 2021-04-05 09:59 | RAD_ITS ---
STUDY: X-RAY CHEST REASON FOR EXAM: Male, 70 years old. Dyspnea, covid 19. TECHNIQUE: PA and lateral views of the chest. COMPARISON: Comparison is made with prior study dated 09/19/2021. FINDINGS: There is hyperinflation of the lungs consistent with chronic obstructive lung disease (COPD). Findings suggestive of a linear left-sided pleural plaque calcification. This is unchanged. Sternal cerclage wires and vascular clips are present from a prior sternotomy and coronary artery bypass graft procedure (CABG). Normal mediastinum and sho. Normal visualized pulmonary arteries. Normal visualized aortic arch and descending thoracic aorta. There are degenerative changes of the visualized thoracic spine. Normal visualized ribs, clavicles, and shoulders. There is no demonstrated abnormality of the visualized soft tissue structures of the upper abdomen. RAD/Chest PA and Lateral IMPRESSION: Hyperinflation. The lungs are clear. Electronically Signed: Brett Fontanez MD at 10:29 EST ,
[2021-04-05 12:05] LABS: Absolute Lymphocyte Count 1.16 X10^3/uL (0.83-4.51); Absolute Neutrophil Count 2.2 X10^3/uL (2.0-7.7); Hematocrit 32.6 % (40-54); Hemoglobin 10.3 g/dL (13.0-16.5); Lymphocyte # 1.16 X10^3/ul (0.83-4.51); Lymphocyte % 31.4 % (19-41); Mean Corp Hgb Conc 31.6 g/dL (32-36); Mean Corpuscular Volume 82.3 fL (80-94); Mean Platelet Vol. 11.4 fl (6.2-12.0); Monocyte# 0.27 X10^3/uL; Monocyte% 7.3 % (0-10); NRBC Flagged by Analyzer 0 % (0-5); Neutrophil # 2.24 X10^3/uL (2.7-7.7); Neutrophil % 60.8 % (47-70); Platelet Count 195 K/mm3 (150-450); RBC Distribution Width CV 15.7 % (11.6-14.6); RBC Distribution Width SD 47.4 fl (35.1-43.9); Red Blood Count 3.96 M/mm3 (4.6-6.2); White Blood Count 3.7 K/mm3 (4.4-11.0)
[2021-04-05 12:26] LABS: ALB/GLOB Ratio 0.7 RATIO (0.9-2.4); AST(SGOT) 26 U/L (15-37); Alanine Aminotransfer ALT/SGPT 36 U/L (16-61); Albumin, Serum 2.6 g/dL (3.2-5.0); Alkaline Phosphatase 69 U/L (45-117); Anion Gap 10 (5-15); BUN 40 mg/dL (7-18); BUN/Creat Ratio 32.3 RATIO (10-20); Calcium,Total 8.8 mg/dL (8.5-10.1); Chloride 104 mmol/L (98-107); Creatinine, Serum 1.24 mg/dL (0.70-1.30); EST Glomerular Filtration Rate 61 mL/min (>60); Est Glom Filt Rate - Afr Amer 74 mL/min (>60); Globulin 3.9 g/dL (2.2-4.2); Glucose 418 mg/dL (74-106); Potassium 3.8 mmol/L (3.5-5.1); Protein, Total 6.5 g/dL (6.4-8.2); Sodium Level 135 mmol/L (136-145)
== END 2021-04-05 23:59 | disposition home or self-care (01) ==
LOC: MTLAB 09:44
PROVIDERS: PCP Internal Medicine; Referring Provider Internal Medicine; Visit Provider Internal Medicine
DX: Z00.00 Encounter for general adult medical examination without abnormal findings (principal)
CPT/HCPCS: 36415; 71046; 80053; 85025

== ENCOUNTER 2021-04-08 13:15 | Inpatient (IN) | payer MEDICARE, SELFPAY ==
[2021-04-08] VITALS (10 sets, daily range): BP systolic 102–140; BP diastolic 51–74; PULSE 69–101; RESP 18–24; TEMP 36.6–38.4; O2SAT 88–95; BMI 29.3; BMI 29.6
--- NOTE | 2021-04-08 13:46 | EKG12_ITS ---
Test Reason : GEN ILLNESS Blood Pressure : / mmHG Vent. Rate : 086 BPM Atrial Rate : 086 BPM P-R Int : 126 ms QRS Dur : 092 ms QT Int : 338 ms P-R-T Axes : 052 037 036 degrees QTc Int : 404 ms Normal sinus rhythm Normal ECG Confirmed by JOSEFINA TEIXEIRA, SAL ([id number]), advertising editor AVINASH MARTINEZ ([id number]) on 04/10/2021 12:46:54 PM Referred By: MAX Confirmed By:SAL ROCHA MD
--- NOTE | 2021-04-08 13:47 | EX.ED.DYSGE1 ---
HPI History of Present Illness Chief Complaint: Confusion Detail of Chief Complaint: Increased confusion and lethargy Informant: patient and spouse/S.O. Narrative Narrative: Patient presents to the emergency department with complaint of increased confusion and lethargy this morning. also states that his oxygen levels has been running low today and she can keep it above 90 unless she goes up to 5 L. Patient apparently had COVID-19 diagnosed March 03 and he was discharged from the hospital on oxygen 2 weeks ago. He had been doing relatively well and yesterday was up and about and feeling pretty well. Patient was brought in via EMS today. states that he just opens his eyes and will answer yes and no but really is more lethargic and more weak today. Patient presented similarly when he was admitted several weeks ago. Patient denied any chest pain. Cough productive at times of some yellow sputum. He is not had a fever. Prior similar symptoms: Yes [facility] Medical History (Updated 04/08/21 @ 16:[address] Margie Joy, DO) Allergic rhinitis Arthritis Asthma Atherosclerosis of coronary artery of [place] heart without angina pectoris Bronchitis Cancer Chronic bronchitis Colon polyp COPD (chronic obstructive pulmonary disease) COVID-19 COVID-19 in immunocompromised patient Gastritis History of basal cell carcinoma History of diabetes mellitus, type II History of non-Hodgkin's lymphoma History of pilonidal cyst Hyperlipidemia Iron deficiency anemia Iron deficiency anemia Lab test negative for COVID-19 virus Non-Hodgkin lymphoma Obesity Pneumonia Pneumonia due to COVID-19 virus Positive colorectal cancer screening using Cologuard test RA (rheumatoid arthritis) Tobacco use URI (upper respiratory infection) 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 complications Home Medications aspirin 81 mg tablet,delayed release 81 mg PO DAILY 09/28/19 [History Last Taken Unknown] cholecalciferol (vitamin D3) 25 mcg (1,000 unit) capsule 25 mcg PO DAILY 07/17/20 [History Last Taken Unknown] ferrous sulfate 325 mg (65 mg iron) tablet 325 mg PO BID #60 tab 07/18/20 [Rx Last Taken Unknown] metoprolol tartrate 25 mg tablet 25 mg PO BID #180 tab 09/12/20 [Rx Last Taken Unknown] nitroglycerin 0.4 mg sublingual tablet 0.4 mg SUBLINGUAL Q5M PRN #30 tab 09/25/20 [Rx Last Taken Unknown] cyanocobalamin (vitamin B-12) 1,000 mcg capsule 1,000 mcg PO DAILY 01/29/21 [History Last Taken Unknown] glimepiride 2 mg tablet 2 mg PO DAILY #90 tab 01/29/21 [Rx Last Taken Unknown] metformin 500 mg tablet 500 mg PO BID #180 tab 01/29/21 [Rx Last Taken Unknown] dexamethasone 6 mg tablet 6 mg PO DAILY #7 tab 04/04/21 [Rx Last Taken Unknown] doxycycline hyclate 100 mg tablet 100 mg PO BID #20 tab 04/04/21 [Rx Last Taken Unknown] Allergy/AdvReac Type Severity Reaction Status Date / Time famotidine [From Pepcid] AdvReac Intermediate Diarrhea Verified 04/08/21 13:41 levofloxacin [From Levaquin] AdvReac Intermediate dizziness Verified 04/08/21 13:41 Family History Father Arthritis Bleeding disorder Hypertension Kidney disease Cancer Skin Anemia blood clots Emphysema lung Mother Colon cancer Cancer Lung Cancer Diabetes Brother Thyroid disorder Surgical History History of coronary artery stent placement (~10/22/13) History of excision of pilonidal cyst History of thymectomy Hx of lymph node excision Social History (Updated 03/23/21 @ 00:[address] Janice Mackey MD) household members: spouse Smoking Status: Current every day smoker tobacco type: cigarettes second hand exposure: Yes quit status: considering quitting alcohol intake: current alcohol intake frequency: holidays/special occasions only substance use type: does not use caffeine: Yes Type: coffee Number of servings: 3 what type of physical activity do you participate in: none frequency: does not exercise seatbelt use: always ROS ROS ED Constitutional Constitutional ED: Reports systems reviewed and no addt'l complaints, except as documented; Denies body ache(s), change in weight or chills Eyes Eyes: Denies acute decrease in peripheral vision, change in vision, double vision or loss of vision ENT ENT ED: Reports none; Denies ear pain, lip swelling, loss taste/smell, neck pain, otalgia or sore throat Cardiovascular Cardiovascular: Reports none; Denies abdominal pain, chest pain with activity, leg edema, lightheadedness, palpitations, rapid heart rate or syncope Respiratory/Chest Respiratory/Chest: Reports none, cough and dyspnea; Denies change in mental status, dry cough, hemoptysis, shortness of breath at rest or shortness of breath with exertion Gastrointestinal Gastrointestinal: Reports none; Denies abdominal pain, change in stool character, diarrhea, hematemesis, hematochezia, melena, rectal bleeding or vomiting Genitourinary Genitourinary ED: Reports none; Denies abdominal discomfort, anuria, dysuria, genital pain or polyuria Musculoskeletal Musculoskeletal: Reports none; Denies arthralgias, back pain, difficulty walking, extremity pain, muscle weakness or myalgias Integumentary Reports none; Denies abscess or rash Neurologic Neurologic: Reports none, weakness and other Details: Confusion and lethargy ; Denies abnormal gait, confusion, focal weakness, frequent falls, headache(s), loss of vision, numbness, paresthesias, radicular pain or vertigo Psychiatric Psychiatric: Reports systems reviewed and no addt'l complaints, except as documented and none; Denies behavioral changes, confusion, difficulty concentrating, hallucinations, suicidal ideation, tactile hallucinations or visual hallucinations Endocrine Endocrinology: Denies none, cold intolerance, excessive sweating, fatigue or heat intolerance Hematologic/Lymphatic Hematologic/Lymphatic: Reports none; Denies anemia, easy bleeding or easy bruising Allergic/Immunologic Allergic/Immunologic ED: Denies as per HPI, none, lip swelling, mouth swelling, throat swelling, tongue swelling or hives EXAM Physical Exam Const Vital Signs: 04/08/21 13:16 04/08/21 13:20 04/08/21 13:21 Temperature 98.5 F 98.5 F Temperature Source Temporal Temporal Pulse Rate 101 H 101 H Respiratory Rate 20 H 20 H Respiratory Effort Respiratory Pattern Blood Pressure 125/51 H 125/51 H Blood Pressure Mean 75 75 Pulse Ox 88 93 93 Oxygen Delivery Method Nasal Cannula Nasal Cannula Nasal Cannula Oxygen Flow Rate (L/min) 4 5 5 04/08/21 13:44 04/08/21 14:30 Temperature 98.4 F Temperature Source Oral Pulse Rate 84 Respiratory Rate 24 H Respiratory Effort Non-Labored Respiratory Pattern Tachypnea Blood Pressure 140/61 H Blood Pressure Mean 87 Pulse Ox 93 Oxygen Delivery Method Nasal Cannula Oxygen Flow Rate (L/min) 5 Positive well nourished and well developed General Appearance ED: well developed and NAD HEENT Reports TM's clear and moist mucous membranes normocephalic and atraumatic; Negative for trauma or tenderness Tympanic Membrane ED: Yes TM's clear Eyes PERRL and EOMs intact bilaterally General Eye ED: Negative for pale conjunctiva or scleral icterus Neck no lymphadenopathy, supple and no JVD General: Negative for tenderness Chest Wall inspection of chest normal and palpation of chest normal Chest: Negative for tenderness Resp normal respiratory effort and clear to auscultation bilaterally Effort and Inspection: Negative for respiratory distress or pain with movement Auscultation: Negative for rhonchi, wheezes or diminished lung sounds Cardio regular rate, regular rhythm, S1 normal heart sound, S2 normal heart sound and no murmurs Peripheral Pulses: pulses 2+ throughout GI normal to inspection, nondistended, normoactive bowel sounds, soft to palpation, non-tender, non-distended and no masses Back/Spine no CVA tenderness and no thoracic nor lumbar tenderness Extremity normal to inspection General Extremety ED: Negative for edema General Extremity: Negative for edema Neuro oriented x3, CN's II-XII intact bilaterally, no sensory deficits noted and gait normal Sensorium / Orientation: awake, alert, oriented to person, oriented to place and oriented to time Motor Exam: strength 5/5 throughout and strength abnormal Psych mental status grossly normal Skin no rashes or lesions noted and no wounds MDM MDM MDM Narrative Medical decision making narrative: IV line established on arrival. Patient placed on a cardiac exercise physiologist. Lab work-up unremarkable. He did have an elevated D-dimer therefore CTA was obtained to rule out PE this was negative for PE but did show bilateral groundglass infiltrates. Radiologist apparently did not see the prior study however when I evaluate the 2 studies I feel there similar as he did have a prior CT scan of the chest on 23 March. This point his will be discussed with hospitalist I did order an ABG. Clinically I do not feel he is retaining CO2. I did start him empirically on Rocephin and Zithromax. Lab Data Attestation: I reviewed the patient's lab results. Labs: Laboratory Results - last 24 hr 04/08/21 04/08/21 04/08/21 13:40 13:40 13:40 WBC 7.1 RBC 4.09 L Hgb 10.8 L Hct 33.0 L MCV 80.7 MCH 26.4 L MCHC 32.7 RDW Std Deviation 45.4 H RDW Coeff of Rafael 15.8 H Plt Count 250 MPV 10.8 Immature Gran % (Auto) 1.100 H Neut % (Auto) 74.9 H Lymph % (Auto) 14.4 L [place] % (Auto) 9.2 Eos % (Auto) 0.1 Baso % (Auto) 0.3 Absolute Neuts (auto) 5.3 Absolute Lymphs (auto) 1.02 Nucleated RBC % 0 D-Dimer Quant (PE/DVT) 6.86 H* Sodium 139 Potassium 3.6 Chloride 104 Carbon Dioxide 27.0 Anion Gap 8 BUN 27 H Creatinine 0.88 Estim Creat Clear Calc 84.51 Est GFR (MDRD) Af Amer 110 Est GFR (MDRD) Non-Af 91 BUN/Creatinine Ratio 30.8 H Glucose 99 Lactic Acid Calcium 9.1 Troponin I High Sens 16 Urine Color Urine Clarity Urine pH Ur Specific [place] Urine Protein Urine Glucose (UA) Urine Ketones Urine Occult Blood Urine Nitrite Urine Bilirubin Urine Urobilinogen Ur Leukocyte Esterase Urine RBC Urine WBC Ur Squamous Epith Cells Urine Bacteria Urine Mucus 04/08/21 04/08/21 13:40 13:40 WBC RBC Hgb Hct MCV MCH MCHC RDW Std Deviation RDW Coeff of Rafael Plt Count MPV Immature Gran % (Auto) Neut % (Auto) Lymph % (Auto) [place] % (Auto) Eos % (Auto) Baso % (Auto) Absolute Neuts (auto) Absolute Lymphs (auto) Nucleated RBC % D-Dimer Quant (PE/DVT) Sodium Potassium Chloride Carbon Dioxide Anion Gap BUN Creatinine Estim Creat Clear Calc Est GFR (MDRD) Af Amer Est GFR (MDRD) Non-Af BUN/Creatinine Ratio Glucose Lactic Acid 2.5 H* Calcium Troponin I High Sens Urine Color Yellow Urine Clarity Clear Urine pH 6.0 Ur Specific [place] 1.015 Urine Protein 30 H Urine Glucose (UA) 250 H Urine Ketones Negative Urine Occult Blood 10 H Urine Nitrite Negative Urine Bilirubin Negative Urine Urobilinogen Normal Ur Leukocyte Esterase Negative Urine RBC 0-5 SEEN Urine WBC 0 SEEN Ur Squamous Epith Cells 0-5 SEEN Urine Bacteria RARE Urine Mucus 0 SEEN Radiography Chest X-Ray - ED: 1 View Diagnostic Testing: Clinical Impression(s) from Imaging Studies Chest X-Ray 04/08/21 13:55 IMPRESSION: 1. Median sternotomy wires and vascular clips again noted without change. 2. No pneumothorax. 3. No congestive failure. 4. Basilar atelectasis however mild asymmetry greater on the LEFT than RIGHT suspicious of superimposed LEFT infrahilar interstitial infiltrate. 5. No consolidation, congestive failure or effusion. Electronically Signed: Boston Oconnell MD at 14:19 EST , Chest CTA 04/08/21 14:17 1 view chest x-ray obtained interpreted by myself as bilateral lower lobe infiltrates. Radiology felt he had basilar atelectasis however mild asymmetry greater on the left than the right suspicious of superimposed left infrahilar interstitial infiltrate. EKG Initial EKG: Attestation: I personally reviewed and interpreted this EKG as follows: Comments: Sinus rhythm with a rate of 86 bpm with no acute ST segment changes Discharge Plan Dx/Rx/DC Orders Clinical Impression: Acute alteration in mental status, Pneumonia, Hypoxemia Disposition Disposition: Acute Care Hospital [facility]
[2021-04-08 13:51] LABS: Mucous, Urine 0 SEEN /hpf (<or=2+); White Blood Cells 0 SEEN /hpf (0-5)
--- NOTE | 2021-04-08 13:55 | RAD_ITS ---
INDICATION: cough EXAMINATION/TECHNIQUE: X-RAY - XR Chest 1 View COMPARISON: 04/05/2021 FINDINGS: LIFE-SUPPORT AND LINES: 1. Median sternotomy wires and vascular clips again noted. 2. No pneumothorax noted. HEART AND VESSELS: The cardiac silhouette, pulmonary vasculature have normal appearance. No evidence of congestive failure. LUNGS AND PLEURAL SPACES: Basilar atelectasis however mild asymmetry greater on the LEFT and RIGHT suspicious of a superimposed interstitial infiltrate in the LEFT lower lobe. No consolidation, no effusion No pulmonary mass is noted. MEDIASTINUM AND HILAR REGIONS: No masses adenopathy noted. No areas of calcification. Visualized upper airway is normal in position. BONY ELEMENTS: No acute bony changes noted. RAD/Chest 1 View (Portable) IMPRESSION: 1. Median sternotomy wires and vascular clips again noted without change. 2. No pneumothorax. 3. No congestive failure. 4. Basilar atelectasis however mild asymmetry greater on the LEFT than RIGHT suspicious of superimposed LEFT infrahilar interstitial infiltrate. 5. No consolidation, congestive failure or effusion. Electronically Signed: Boston Oconnell MD at 14:19 EST ,
[2021-04-08 13:57] LABS: Absolute Lymphocyte Count 1.02 X10^3/uL (0.83-4.51); Absolute Neutrophil Count 5.3 X10^3/uL (2.0-7.7); Basophil# 0.02 X10^3/uL; Basophil% 0.3 % (0-1); Eosinophil# 0.01 X10^3/uL; Eosinophils% 0.1 % (0-5); Hemoglobin 10.8 g/dL (13.0-16.5); Lymphocyte # 1.02 X10^3/ul (0.83-4.51); Lymphocyte % 14.4 % (19-41); Mean Corp Hgb Conc 32.7 g/dL (32-36); Mean Corpuscular Hgb 26.4 pg (27.0-32.0); Mean Corpuscular Volume 80.7 fL (80-94); Mean Platelet Vol. 10.8 fl (6.2-12.0); Monocyte# 0.65 X10^3/uL; Monocyte% 9.2 % (0-10); NRBC Flagged by Analyzer 0 % (0-5); Neutrophil % 74.9 % (47-70); Platelet Count 250 K/mm3 (150-450); RBC Distribution Width CV 15.8 % (11.6-14.6); RBC Distribution Width SD 45.4 fl (35.1-43.9); Red Blood Count 4.09 M/mm3 (4.6-6.2); White Blood Count 7.1 K/mm3 (4.4-11.0)
[2021-04-08 14:09] LABS: Color, Urine Yellow (Yellow); Glucose, Dipstick 250 mg/dl (Normal); Ketone-Dipstick Negative (Negative); Leukocyte Esterase-Dipstick Negative /ul (Negative); Nitrite-Dipstick Negative (Negative); Occult Blood-Urine 10 /ul (Negative); Protein-Dipstick 30 mg/dl (Negative); Specific Gravity, Urine 1.015 (1.002-1.030); Urine Bilirubin Dipstick Negative (Negative); Urine Clarity Clear (Clear); Urine Urobilinogen Normal (Normal)
[2021-04-08 14:10] LABS: Anion Gap 8 (5-15); BUN 27 mg/dL (7-18); BUN/Creat Ratio 30.8 RATIO (10-20); Calcium,Total 9.1 mg/dL (8.5-10.1); Chloride 104 mmol/L (98-107); Creatinine, Serum 0.88 mg/dL (0.70-1.30); EST Glomerular Filtration Rate 91 mL/min (>60); Est Glom Filt Rate - Afr Amer 110 mL/min (>60); Estimated Creatinine Clearance 84.51 ml/min; Glucose 99 mg/dL (74-106); Potassium 3.6 mmol/L (3.5-5.1); Sodium Level 139 mmol/L (136-145); Troponin-I HS 16 pg/mL (3.0-78.0)
[2021-04-08 14:14] LABS: D-Dimer Quantitative (DVT/PE) 6.86 FEU/ug/m (0.27-0.49)
--- NOTE | 2021-04-08 14:17 | CT_ITS ---
STUDY: CTA CHEST REASON FOR EXAM: Male, 70 years old. elevated d-dimer RADIATION DOSAGE (If Supplied By Facility): CTDIvol = ( 14.72 ) mGy, DLP = ( 481.67 ) mGycm TECHNIQUE: The examination was performed with the intravenous administration of IV 100mL [id number]-370. Post-processing of the angiographic images was performed, with multiplanar reformation and 3D reconstruction. Individualized dose optimization techniques were used for this CT. COMPARISON: None. FINDINGS: Lines and tubes: 1. No lines or tubes noted. CTA: PULMONARY ARTERIES: There is normal configuration and contrast opacification of pulmonary outflow tract, main pulmonary arteries, segmental and intersegmental pulmonary arteries bilaterally without evidence of intraluminal filling defects. AORTIC ARCH: The aortic arch and descending aorta have normal configuration. No evidence of dissection or aneurysmal dilatation. HEART: Cardiac contour is normal, coronary vascular calcifications and sequelae of CABG noted. No pericardial effusion. CT CHEST: LUNGS: [Extensive interstitial prominence at the lung bases, scattered areas of groundglass infiltrate at the lung bases. Patchy area of atelectasis and infiltrate in the medial aspect of the RIGHT upper lobe. No consolidation, no effusion. PLEURAL SPACES: Unremarkable, no effusion or pneumothorax.. MEDIASTINUM AND LYMPH NODES: Unremarkable. No significant adenopathy. BONES: Unremarkable ABDOMEN: Within normal limits. Other: None IMPRESSIONS: 1. No CTA evidence of pulmonary embolism. 2. No CTA evidence of aortic aneurysm or dissection 3. Cardiac contour is normal. Coronary vascular calcifications and sequelae of prior CABG noted. No effusion. 4. Moderate to extensive multilobar interstitial and groundglass atypical infiltrate noted. No effusion noted. Electronically Signed: Boston Oconnell MD at 16:13 EST , CT/CTA Chest W/WO Contrast
[2021-04-08 14:18] LABS: Lactic Acid 2.5 mmol/L (0.4-1.9)
[2021-04-08] MEDS: 0.9% Normal Saline 1,000 ML 150 ML IV ×2 (14:18→18:54)
[2021-04-08 14:25] LABS: Bacteria RARE /hpf (None Seen); Red Blood Cells-Urine 0-5 SEEN /hpf (0-5); Squamous Epithelial Cells - UA 0-5 SEEN /hpf (0-5)
--- NOTE | 2021-04-08 16:33 | HP.PCM.HOS_ITS ---
HPI - General General Date of Admission: 04/08/21 HPI Narrative SAL ALONZO, is a 70 M with a PMH as outlined who presents via the ED on 04/08/2021 with a complaint of confusion and lethargy. He was diagnosed with covid on Mar 04 and ws discharged home with home oxygen 2 weeks ago. He was noted to be more lethargic this morning and said he had been very weak at home. He hasnt had any fever or chills, and no chest pain. He had a cough productive of yellowish sputum. Vitals were blood pressure 140/61, respiratory of 24 and pulse rate of 84. He was saturating at 93% on 5 L of oxygen. Temperature was 98.4 Fahrenheit. Chemistry was only significant for lactic acid of 2.5. D-dimer was 6.86. CTA of the chest showed no evidence of PE but showed moderate to extensive multilobar interstitial and groundglass atypical infiltrates noted with no effusion noted. ABG is pending. He has been admitted to be managed for acute metabolic encephalopathy likely due to superimposed bacterial pneumonia in the setting of recent Covid pneumonia. He was started on IV ceftriaxone and azithromycin in the ED. [facility] Medical History (Updated 04/08/21 @ 16:[address] Margie Joy, ) Allergic rhinitis Arthritis Asthma Atherosclerosis of coronary artery of [place] heart without angina pectoris Bronchitis Cancer Chronic bronchitis Colon polyp COPD (chronic obstructive pulmonary disease) COVID-19 COVID-19 in immunocompromised patient Gastritis History of basal cell carcinoma History of diabetes mellitus, type II History of non-Hodgkin's lymphoma History of pilonidal cyst Hyperlipidemia Iron deficiency anemia Iron deficiency anemia Lab test negative for COVID-19 virus Non-Hodgkin lymphoma Obesity Pneumonia Pneumonia due to COVID-19 virus Positive colorectal cancer screening using Cologuard test RA (rheumatoid arthritis) Tobacco use URI (upper respiratory infection) 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 complications Home Medications aspirin 81 mg tablet,delayed release 81 mg PO DAILY 09/28/19 [History Last Taken Unknown] cholecalciferol (vitamin D3) 25 mcg (1,000 unit) capsule 25 mcg PO DAILY 07/17/20 [History Last Taken Unknown] ferrous sulfate 325 mg (65 mg iron) tablet 325 mg PO BID #60 tab 07/18/20 [Rx Last Taken Unknown] metoprolol tartrate 25 mg tablet 25 mg PO BID #180 tab 09/12/20 [Rx Last Taken Unknown] nitroglycerin 0.4 mg sublingual tablet 0.4 mg SUBLINGUAL Q5M PRN #30 tab 09/25/20 [Rx Last Taken Unknown] cyanocobalamin (vitamin B-12) 1,000 mcg capsule 1,000 mcg PO DAILY 01/29/21 [History Last Taken Unknown] glimepiride 2 mg tablet 2 mg PO DAILY #90 tab 01/29/21 [Rx Last Taken Unknown] metformin 500 mg tablet 500 mg PO BID #180 tab 01/29/21 [Rx Last Taken Unknown] dexamethasone 6 mg tablet 6 mg PO DAILY #7 tab 04/04/21 [Rx Last Taken Unknown] doxycycline hyclate 100 mg tablet 100 mg PO BID #20 tab 04/04/21 [Rx Last Taken Unknown] Allergy/AdvReac Type Severity Reaction Status Date / Time famotidine [From Pepcid] AdvReac Intermediate Diarrhea Verified 04/08/21 13:41 levofloxacin [From Levaquin] AdvReac Intermediate dizziness Verified 04/08/21 13:41 Family History Father Arthritis Bleeding disorder Hypertension Kidney disease Cancer Skin Anemia blood clots Emphysema lung Mother Colon cancer Cancer Lung Cancer Diabetes Brother Thyroid disorder Surgical History History of coronary artery stent placement (~10/22/13) History of excision of pilonidal cyst History of thymectomy Hx of lymph node excision Social History (Updated 03/23/21 @ 00:[address] Janice Mackey MD) household members: spouse Smoking Status: Current every day smoker tobacco type: cigarettes second hand exposure: Yes quit status: considering quitting alcohol intake: current alcohol intake frequency: holidays/special occasions only substance use type: does not use caffeine: Yes Type: coffee Number of servings: 3 what type of physical activity do you participate in: none frequency: does not exercise seatbelt use: always ROS Review of Systems ROS Unobtainable: due to encephalopathy and other Details: Mainly gotten from his . Constitutional Constitutional: Reports fatigue, malaise and weakness; Denies chills or fever(s) Eyes Eyes: Denies change in vision ENT HEENT: Denies dysphagia or headache(s) Cardiovascular Cardiovascular: Denies chest pain, dyspnea on exertion, lightheadedness, orthopnea, palpitations, paroxysmal nocturnal dyspnea, rapid heart rate or syncope Respiratory/Chest Respiratory/Chest: Reports cough, dyspnea, excessive phlegm production, productive cough, shortness of breath at rest and shortness of breath with exertion; Denies wheezing Gastrointestinal Gastrointestinal: Denies abdominal pain, diarrhea, dyspepsia, nausea or vomiting Genitourinary Genitourinary: Denies burning urination, dysuria, urinary frequency or urinary urgency Musculoskeletal Musculoskeletal: Denies back pain or joint swelling Neurologic Neurologic: Reports confusion, focal weakness and tremor(s); Denies dizziness, headache(s), seizure-like activity or seizures Hematologic/Lymphatic Hematologic/Lymphatic: Denies anemia Vital Signs Vital Signs Vital Signs: 04/08/21 13:16 04/08/21 13:20 04/08/21 13:21 Temperature 98.5 F 98.5 F Temperature Source Temporal Temporal Pulse Rate 101 H 101 H Respiratory Rate 20 H 20 H Respiratory Effort Respiratory Pattern Blood Pressure 125/51 H 125/51 H Blood Pressure Mean 75 75 Pulse Ox 88 93 93 Oxygen Delivery Method Nasal Cannula Nasal Cannula Nasal Cannula Oxygen Flow Rate (L/min) 4 5 5 04/08/21 13:44 04/08/21 14:30 Temperature 98.4 F Temperature Source Oral Pulse Rate 84 Respiratory Rate 24 H Respiratory Effort Non-Labored Respiratory Pattern Tachypnea Blood Pressure 140/61 H Blood Pressure Mean 87 Pulse Ox 93 Oxygen Delivery Method Nasal Cannula Oxygen Flow Rate (L/min) 5 Weight Weight: 216 lb 4.375 oz Body Mass Index (BMI) 29.3 Physical Exam Const alert Orientation / Consciousness: confused, disoriented and lethargic HEENT normocephalic, head/scalp atraumatic and hearing grossly normal bilaterally HEENT Narrative: dry mucous membranes Eyes PERRL, EOMs intact bilaterally and conjunctivae normal Neck no lymphadenopathy, supple and no JVD Resp Resp Narrative: Diminished breath sounds bibasilarly. Bilateral crackles. On 5 L of oxygen. Cardio regular rate, regular rhythm, S1 normal heart sound, S2 normal heart sound and no murmurs GI normal to inspection, nondistended, normoactive bowel sounds, soft to palpation, non-tender and non-distended Extremity normal to inspection, full ROM and no clubbing, cyanosis or edema Peripheral Pulses: Yes pulses 2+ throughout Skin no rashes or lesions noted Neuro CN's II-XII intact bilaterally and moves all extremities Neuro Narrative: Very confused and disoriented. Moving all limbs spontaneously. Sensorium / Orientation: awake and alert Psych Psych Narrative: Anxious and confused. Results Lab / Micro Data Result Diagrams: 04/08/21 13:40 04/08/21 13:40 Labs: Laboratory Results - last 24 hr 04/08/21 13:40: WBC 7.1, RBC 4.09 L, Hgb 10.8 L, Hct 33.0 L, MCV 80.7, MCH 26.4 L, MCHC 32.7, RDW Std Deviation 45.4 H, RDW Coeff of Rafael 15.8 H, Plt Count 250, MPV 10.8, Immature Gran % (Auto) 1.100 H, Neut % (Auto) 74.9 H, Lymph % (Auto) 14.4 L, [place] % (Auto) 9.2, Eos % (Auto) 0.1, Baso % (Auto) 0.3, Absolute Neuts (auto) 5.3, Absolute Lymphs (auto) 1.02, Nucleated RBC % 0 04/08/21 13:40: D-Dimer Quant (PE/DVT) 6.86 H* 04/08/21 13:40: Sodium 139, Potassium 3.6, Chloride 104, Carbon Dioxide 27.0, Anion Gap 8, BUN 27 H, Creatinine 0.88, Estim Creat Clear Calc 84.51, Est GFR (MDRD) Af Amer 110, Est GFR (MDRD) Non-Af 91, BUN/Creatinine Ratio 30.8 H, Glucose 99, Calcium 9.1, Troponin I High Sens 16 04/08/21 13:40: Lactic Acid 2.5 H* 04/08/21 13:40: Urine Color Yellow, Urine Clarity Clear, Urine pH 6.0, Ur Specific [place] 1.015, Urine Protein 30 H, Urine Glucose (UA) 250 H, Urine Ketones Negative, Urine Occult Blood 10 H, Urine Nitrite Negative, Urine Bilirubin Negative, Urine Urobilinogen Normal, Ur Leukocyte Esterase Negative, Urine RBC 0-5 SEEN, Urine WBC 0 SEEN, Ur Squamous Epith Cells 0-5 SEEN, Urine Bacteria RARE, Urine Mucus 0 SEEN Radiology Impression Chest X-Ray 04/08/21 13:55 IMPRESSION: 1. Median sternotomy wires and vascular clips again noted without change. 2. No pneumothorax. 3. No congestive failure. 4. Basilar atelectasis however mild asymmetry greater on the LEFT than RIGHT suspicious of superimposed LEFT infrahilar interstitial infiltrate. 5. No consolidation, congestive failure or effusion. Electronically Signed: Boston Oconnell MD at 14:19 EST , Chest CTA 04/08/21 14:17 Assessment & Plan Assessment/Plan (1) Acute alteration in mental status: (2) Pneumonia: PLAN: #Acute on chronic hypoxic respiratory failure due to superimposed pneumonia in the setting of recent Covid infection. * Currently liters of oxygen. Usually with 3 L. * Chest CT showed moderate to extensive multilobar interstitial and groundglass atypical infiltrates with no effusion and no PE * Admit to PCU with telemetry * Get urine for strep and Legionella as well as blood and sputum cultures * Check urinalysis * Started on IV ceftriaxone and azithromycin. We'll continue. * Hydrate gently with IV fluids * Breathing treatments of bronchodilators. Titrate oxygen to maintain saturation above 90%. * #Acute metabolic encephalopathy due to acute on chronic hypoxic respiratory failure: Management as above #Elevated D-dimer * D-dimer markedly elevated at 6.86. CT of the chest negative for PE * Put on Lovenox 40 mg twice daily. This is likely due to Covid. * #Recent COVID-19 infection * Got Covid back in February and was discharged just 2 weeks ago on 3 L of oxygen. * Currently requiring 5 L of oxygen. Titrate oxygen to maintain saturation above 90%. * Now admitted for acute on chronic respiratory failure and be managed as above. * #Lactic acidosis: Likely due to dehydration and hypoxia: Lactic acid is 2.5. Will hydrate with fluids and trend. #History of CAD s/p stents back in 2013 * On aspirin. Not on statin. Not clear why * #Hypertension: On metoprolol 25 mg twice daily. #History of non-Hodgkin's lymphoma: stable History of rheumatoid arthritis: On rituximab #Type 2 diabetes mellitus: Hold oral meds. Insulin sliding scale. Checks ACH S. DVT prophylaxis: Lovenox 40 mg twice daily CODE STATUS: Full code * Patient's counseled extensively about different types of CODE STATUS including full code, DNR CCA and DNR CCA. Patient's elects for him to be full code. * Total [id number] time 17 minutes. Charges/Coding Visit Charges Inpatient E&M: 96086 Init Hosp L3 Procedures Hospitalists Procedures: 71976 Advncd Care Plan 30 Min
[2021-04-08 16:40] LABS: Allen Test Positive; Base Excess 0 mmol/L (-2 to +2); Bicarbonate 23.5 mmol/L (22-26); Blood Gas Specimen Type ART; O2 Delivery Device Cannula; PO2 55 mmHG (75-100); SITE L Radial; SO2 90 % (95-99); Total Carbon Dioxide 25 mmol/L; pH 7.47 (7.35-7.45)
[2021-04-08] MEDS: Ceftriaxone 1 GM/50 ML BAG IV (16:59)
[2021-04-08 17:48] LABS: Reflex Lactate? Y
[2021-04-08] MEDS: Acetaminophen 325 MG Tablet 650 MG PO (18:38)
[2021-04-08 18:44] LABS: Lactic Acid 2.2 mmol/L (0.4-1.9)
[2021-04-08] MEDS: Doxycycline 100 MG CAPSULE PO (21:36)
[2021-04-08] MEDS: 0.9% Saline Lock 10 ML Syringe IV (21:36)
[2021-04-08] MEDS: Metoprolol Tartrate 25 MG Tablet PO (21:36)
[2021-04-08 23:01] LABS: Bedside Glucose 135 mg/dL (70-110)
[2021-04-09] VITALS (23 sets, daily range): BP systolic 101–140; BP diastolic 48–66; PULSE 48–86; RESP 16–22; TEMP 35.6–38.3; O2SAT 85–100
[2021-04-09] MEDS: 0.9% Normal Saline 1,000 ML 150 ML IV ×2 (01:35→08:05)
[2021-04-09 06:23] LABS: Absolute Neutrophil Count 3.9 X10^3/uL (2.0-7.7); Basophil# 0.01 X10^3/uL; Basophil% 0.2 % (0-1); Eosinophil# 0.13 X10^3/uL; Eosinophils% 2.2 % (0-5); Hematocrit 28.6 % (40-54); Hemoglobin 9.8 g/dL (13.0-16.5); Lymphocyte % 21.8 % (19-41); Mean Corp Hgb Conc 34.3 g/dL (32-36); Mean Corpuscular Volume 75.9 fL (80-94); Mean Platelet Vol. 10.7 fl (6.2-12.0); Monocyte% 8.4 % (0-10); NRBC Flagged by Analyzer 0 % (0-5); Neutrophil # 3.89 X10^3/uL (2.7-7.7); Neutrophil % 65.4 % (47-70); Platelet Count 159 K/mm3 (150-450); RBC Distribution Width SD 43.8 fl (35.1-43.9); Red Blood Count 3.77 M/mm3 (4.6-6.2)
[2021-04-09 06:57] LABS: Anion Gap 8 (5-15); BUN 22 mg/dL (7-18); BUN/Creat Ratio 35.7 RATIO (10-20); Chloride 109 mmol/L (98-107); Creatinine, Serum 0.62 mg/dL (0.70-1.30); EST Glomerular Filtration Rate 137 mL/min (>60); Est Glom Filt Rate - Afr Amer 165 mL/min (>60); Estimated Creatinine Clearance 69.96 ml/min; Glucose 68 mg/dL (74-106); Potassium 3.8 mmol/L (3.5-5.1); Sodium Level 138 mmol/L (136-145)
[2021-04-09] MEDS: Dextrose 10%-Water 250 ML 999 ML IV (07:10)
--- NOTE | 2021-04-09 07:12 | NURSING ---
Blood sugar 67 at 0646. 2 containers of orange juice given. Rechecked at 0702 and it was 60. D10W 250 bolus hung per protocol.
[2021-04-09 07:51] LABS: Bedside Glucose 67 mg/dL (70-110)
[2021-04-09 07:51] LABS: Bedside Glucose 60 mg/dL (70-110)
[2021-04-09] MEDS: Acetaminophen 325 MG Tablet 650 MG PO ×2 (07:56→14:58)
[2021-04-09] MEDS: Doxycycline 100 MG CAPSULE PO (08:11)
[2021-04-09] MEDS: Metoprolol Tartrate 25 MG Tablet PO (08:11)
[2021-04-09] MEDS: Enoxaparin 40 MG/0.4 ML Syringe SC (08:12)
[2021-04-09] MEDS: Cyanocobalamin 500 MCG Tablet 1000 MCG PO (08:12)
[2021-04-09] MEDS: dexAMETHasone 2 MG TABLET 6 MG PO (08:12)
[2021-04-09] MEDS: Cholecalciferol (VIT D3) 25 MCG TABLET (1,000 UNITS) PO (08:12)
[2021-04-09] MEDS: Aspirin E.C. 81 MG Tablet PO (08:12)
[2021-04-09 08:20] LABS: Bedside Glucose 162 mg/dL (70-110)
[2021-04-09] MEDS: Ceftriaxone 1 GM/50 ML BAG IV (10:22)
[2021-04-09] MEDS: Ferrous Sulfate 325 MG Tablet PO ×2 (11:08→16:20)
[2021-04-09 11:15] LABS: Bedside Glucose 175 mg/dL (70-110)
--- NOTE | 2021-04-09 11:52 | PCM.PN.HOSP ---
Documented by User: Luz Boyd SOFTWARE APPLICATIONS ENGINEER, SOFTWARE APPLICATIONS ENGINEER-C 04/09/21 12:23 Subjective Subjective Patient seen and examined. Drowsy during exam, remains confused. at bedside. requesting pulmonary consult, states patient follows with Dr. Singleton. Objective Data Objective Data Vital Signs: Vital Signs Temp Pulse Resp BP Pulse Ox 99.1 F 75 20 H 112/58 L 93 04/09/21 09:16 04/09/21 09:16 04/09/21 09:16 04/09/21 09:16 04/09/21 10:25 Oxygen Flow Rate (L/min) 4 Oxygen Delivery Method Nasal Cannula Weight: 206 lb 5.643 oz Body Mass Index (BMI) 29.6 Intake & Output: Intake and Output for Last 24 Hours 04/07/21 04/08/21 04/09/21 23:59 23:59 23:59 Intake Total 1055 / 1820 2752.5 / 2752.5 Output Total 630 / 630 Balance 425 / 1190 2752.5 / 2752.5 Lab / Micro Data Result Diagrams: 04/09/21 05:55 04/09/21 05:55 Labs: Laboratory Results - last 24 hr 04/08/21 13:40: WBC 7.1, RBC 4.09 L, Hgb 10.8 L, Hct 33.0 L, MCV 80.7, MCH 26.4 L, MCHC 32.7, RDW Std Deviation 45.4 H, RDW Coeff of Rafael 15.8 H, Plt Count 250, MPV 10.8, Immature Gran % (Auto) 1.100 H, Neut % (Auto) 74.9 H, Lymph % (Auto) 14.4 L, [place] % (Auto) 9.2, Eos % (Auto) 0.1, Baso % (Auto) 0.3, Absolute Neuts (auto) 5.3, Absolute Lymphs (auto) 1.02, Nucleated RBC % 0 04/08/21 13:40: D-Dimer Quant (PE/DVT) 6.86 H* 04/08/21 13:40: Sodium 139, Potassium 3.6, Chloride 104, Carbon Dioxide 27.0, Anion Gap 8, BUN 27 H, Creatinine 0.88, Estim Creat Clear Calc 84.51, Est GFR (MDRD) Af Amer 110, Est GFR (MDRD) Non-Af 91, BUN/Creatinine Ratio 30.8 H, Glucose 99, Calcium 9.1, Troponin I High Sens 16 04/08/21 13:40: Lactic Acid 2.5 H* 04/08/21 13:40: Urine Color Yellow, Urine Clarity Clear, Urine pH 6.0, Ur Specific [place] 1.015, Urine Protein 30 H, Urine Glucose (UA) 250 H, Urine Ketones Negative, Urine Occult Blood 10 H, Urine Nitrite Negative, Urine Bilirubin Negative, Urine Urobilinogen Normal, Ur Leukocyte Esterase Negative, Urine RBC 0-5 SEEN, Urine WBC 0 SEEN, Ur Squamous Epith Cells 0-5 SEEN, Urine Bacteria RARE, Urine Mucus 0 SEEN 04/08/21 18:13: Lactic Acid 2.2 H* 04/08/21 21:21: POC Glucose 135 H 04/09/21 05:55: WBC 6.0, RBC 3.77 L, Hgb 9.8 L, Hct 28.6 L, MCV 75.9 L D, MCH 26.0 L, MCHC 34.3, RDW Std Deviation 43.8, RDW Coeff of Rafael 16.0 H, Plt Count 159, MPV 10.7, Immature Gran % (Auto) 2.000 H, Neut % (Auto) 65.4, Lymph % (Auto) 21.8, [place] % (Auto) 8.4, Eos % (Auto) 2.2, Baso % (Auto) 0.2, Absolute Neuts (auto) 3.9, Absolute Lymphs (auto) 1.30, Nucleated RBC % 0 04/09/21 05:55: Sodium 138, Potassium 3.8, Chloride 109 H, Carbon Dioxide 21.0, Anion Gap 8, BUN 22 H, Creatinine 0.62 L, Estim Creat Clear Calc 69.96, Est GFR (MDRD) Af Amer 165, Est GFR (MDRD) Non-Af 137, BUN/Creatinine Ratio 35.7 H, Glucose 68 L, Calcium 8.0 L 04/09/21 06:45: POC Glucose 67 L 04/09/21 07:05: POC Glucose 60 L 04/09/21 07:55: POC Glucose 162 H 04/09/21 11:03: POC Glucose 175 H ABG Data ABG results: ABG 04/08/21 16:37 Specimen Type ART Sample Site L Radial pH 7.47 H Bicarbonate Actual 23.5 Total CO2 25 Base Excess 0 O2 Saturation 90 L ABG pCO2 32.0 L ABG pO2 55 L Thompson Test Positive O2 Delivery Device Cannula Liter Flow 5.0 Radiography Diagnostic Testing: Radiology Impression Chest X-Ray 04/08/21 13:55 IMPRESSION: 1. Median sternotomy wires and vascular clips again noted without change. 2. No pneumothorax. 3. No congestive failure. 4. Basilar atelectasis however mild asymmetry greater on the LEFT than RIGHT suspicious of superimposed LEFT infrahilar interstitial infiltrate. 5. No consolidation, congestive failure or effusion. Electronically Signed: Boston Oconnell MD at 14:19 EST , Chest CTA 04/08/21 14:17 Physical Exam Const Constitutional Narrative: Drowsy Orientation / Consciousness: confused HEENT normocephalic Mouth: dry mucous membranes Eyes PERRL, EOMs intact bilaterally and conjunctivae normal Neck no lymphadenopathy Resp Auscultation: crackles and diminished lung sounds Cardio regular rate, regular rhythm and no murmurs Peripheral Pulses: pulses 2+ throughout GI normal to inspection, nondistended, normoactive bowel sounds, non-tender and non-distended Extremity normal to inspection Skin no rashes or lesions noted Lesions: no lesions Rashes: no rashes Trauma: no lacerations or abrasions Neuro CN's II-XII intact bilaterally, no focal motor deficits, no sensory deficits noted and deep tendon reflexes 2+ bilaterally Psych mental status grossly normal and affect normal Assessment & Plan Assessment/Plan (1) Acute alteration in mental status: (2) Hypoxemia: PLAN: 1. Acute on chronic hypoxic respiratory failure secondary to recent Covid infection-recently discharged on 3 L supplemental oxygen however now requiring increased supplementation. Patient placed on IV Rocephin and IV azithromycin on admission for suspected superimposed pneumonia. Continue empiric antibiotics pending blood and sputum cultures. Albuterol and DuoNeb aerosols. Pulmonary consult. If no improvement, consider initiating steroids. Previously completed dexamethasone. PT/OT. 2. Acute metabolic encephalopathy-secondary to #1, treatment per above. 3. Recent COVID-19 infection-completed remdesivir and dexamethasone. 4. CAD with history of stents-continue aspirin, metoprolol. Not on statin. 5. Type 2 diabetes [id number] with sliding scale insulin. 6. Hypertension-continue metoprolol. 7. History of non-Hodgkin's lymphoma 8. History of rheumatoid arthritis- not on regimen. 9. Tobacco dependence-encouraged cessation. 10. Chronic microcytic anemia/iron deficiency-stable, continue iron supplementation. DVT prophylaxis-Lovenox subcu This patient was seen by SORIN Hansen under the supervision of Dr. Cruz. Time spent examining patient, reviewing data and subsequent management of care: 12 Minutes Documented by User: Dr. Marco Cruz, 04/09/21 16:44 Subjective Subjective Feels well at presents. Objective Data Lab / Micro Data Result Diagrams: 04/09/21 05:55 04/09/21 05:55 Physical Exam Const alert and no apparent distress Resp Resp Narrative: Coarse breath sounds bilaterally Cardio regular rate, regular rhythm, S1 normal heart sound and S2 normal heart sound GI normal to inspection, nondistended, normoactive bowel sounds, soft to palpation, non-tender and non-distended Extremity normal to inspection and full ROM Assessment & Plan Assessment/Plan (1) Acute alteration in mental status: (2) Pneumonia: (3) Acute respiratory failure with hypoxia: PLAN: 1. Acute metabolic encephalopathy: Likely secondary to hypoxia. Since resolved. 2. Acute on chronic hypoxic respiratory failure. Patient previously had COVID-19 and was discharged on 3 L and currently is on 9 L. Seen by pulmonology. Patient continue with antibiotics. Follow-up on cultures. On methylprednisolone. Greater than 25 minutes of which greater than 50% of time was counseling the patient at bedside about the respiratory failure and encephalopathy. Charges/Coding Visit Charges Inpatient E&M: 35905 Subs Hosp L2
--- NOTE | 2021-04-09 13:26 | CON.PCM.CC_ITS ---
Assessment & Plan Assessment/Plan (1) Acute alteration in mental status: (2) Hypoxemia: (3) Nicotine dependence, cigarettes, uncomplicated: (4) Diabetes: (5) Non-Hodgkin lymphoma: (6) RA (rheumatoid arthritis): QUALIFIERS: Rheumatoid factor presence: unspecified presence Laterality: unspecified laterality PLAN: RECOMMENDATIONS: 1. Discontinue doxycycline 2. Transition to Solu-Medrol 3. Obtain sputum culture. Continue antibiotics for 48 hours 4. Challenge with diuretics. Supplement potassium 5. Wean oxygen as tolerated. Walking oximetry prior to discharge 6. Obtain viral panel 7. Not necessary to transition to ICU level of care at this time IMPRESSIONS: 1. Acute on chronic hypoxic respiratory insufficiency with recent COVID-19 in the setting of COPD/asthma overlap syndrome Patient does have groundglass opacities noted on CTA of the chest. Unclear if this is residual from previous COVID-19 versus a secondary process. Patient is immunosuppressed at baseline secondary to rheumatoid arthritis, so may not have a significant leukocytosis. Okay to use antibiotics for 48 hours pending negative cultures. We will challenge patient with diuretics given lower extremity edema. If patient improves in less than 24 hours, this is likely the etiology. It is unlikely, but a secondary viral infection would also be a consideration. Will obtain a viral panel. Decadron will likely cause significant elevation of blood sugars, so we will transition to Solu-Medrol for now. Patient does have underlying COPD/asthma overlap syndrome. Continue bronchodilators. Continue to wean oxygen as tolerated. Patient will need a walking oximetry prior to discharge. 2. Acute metabolic encephalopathy Clinical suspicion that this is secondary to hypoxia. ABG did not show significant CO2 retention. Delirium secondary to acute infectious etiology would also be a consideration. Patient does appear to be improving with current therapy. We will continue to monitor. 3. Coronary artery disease status post stents/type 2 diabetes mellitus/hypertension/history of RA/history of lymphoma/tobacco dependence Complicates care, management, recovery and prognosis. Will need to watch blood sugars closely given steroids using for problem #1. Blood pressures appear to be relatively controlled at this time. Continue current medications. Patient can be offered nicotine replacement if necessary. Did confirm with the patient and his that he is a full code. HPI Consult Data Date of Consult: 04/09/21 HPI Narrative HPI Narrative: SAL ALONZO is a 70 M, with past medical history listed below and well-known to our office, who presents to [facility] 04/08/2021 secondary to increased confusion and lethargy. Patient was reportedly hospitalized in February secondary to COVID-19 and discharged 2 weeks ago on supplemental oxygen. Patient did not required supplemental oxygen previously, but was stable on 3 L nasal cannula. Patient reportedly was starting to improve, but EMS was called secondary to decreased mental status and inability to stand. Patient had denied any chest pain, fever or sinus congestion. Patient did have a cough productive of white to pale yellow sputum. No new sick contacts have been reported. Patient had completed his doxycycline and Decadron. In the ER, patient was afebrile, but tachycardic at 101 bpm. Patient was normotensive, but was noted to be 88% on 4 L nasal cannula. Laboratory work-up showed a white blood cell count of 7.1, hemoglobin of 10.8 and a D-dimer of 6.86. Chemistries were unremarkable, but lactate was 2.5. UA was unremarkable. Chest x-ray showed bibasilar atelectasis without effusion. Given elevated D- dimer, a CTA of the chest was obtained showing no PE, but bibasilar groundglass opacities. Given patient's need for increased oxygen, patient was admitted to the floor for further evaluation. Since being admitted to the hospital, patient is still requiring 4 to 5 L nasal cannula to maintain saturations. Patient reportedly is more appropriate and has been following commands per his at the bedside. Patient does have lower e xtremity edema at baseline. Patient's reports that he has chills routinely and does not know that this has changed. No leading complications have been reported. Patient was slowly improving until the day prior to presentation. Patient reportedly was using his home medications as ordered. Patient does continue to smoke at baseline. Between and patient review of systems otherwise negative from a constitutional, HEENT, respiratory, cardiovascular, GI, genitourinary, musculoskeletal, skin, neurologic, psychiatric and hematologic system unless stated above. [facility] Medical History Allergic rhinitis Arthritis Asthma Atherosclerosis of coronary artery of [place] heart without angina pectoris Bronchitis Cancer Chronic bronchitis Colon polyp COPD (chronic obstructive pulmonary disease) COVID-19 COVID-19 in immunocompromised patient Gastritis History of basal cell carcinoma History of diabetes mellitus, type II History of non-Hodgkin's lymphoma History of pilonidal cyst Hyperlipidemia Iron deficiency anemia Iron deficiency anemia Lab test negative for COVID-19 virus Non-Hodgkin lymphoma Obesity Pneumonia Pneumonia due to COVID-19 virus Positive colorectal cancer screening using Cologuard test RA (rheumatoid arthritis) Tobacco use URI (upper respiratory infection) 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 complications Home Medications aspirin 81 mg tablet,delayed release 81 mg PO DAILY 09/28/19 [History Last Taken Unknown] cholecalciferol (vitamin D3) 25 mcg (1,000 unit) capsule 25 mcg PO DAILY 06/25 06/14 [History Last Taken Unknown] ferrous sulfate 325 mg (65 mg iron) tablet 325 mg PO BID #60 tab 07/18/20 [Rx Last Taken Unknown] metoprolol tartrate 25 mg tablet 25 mg PO BID #180 tab 09/12/20 [Rx Last Taken Unknown] nitroglycerin 0.4 mg sublingual tablet 0.4 mg SUBLINGUAL Q5M PRN #30 tab 1 [Rx Last Taken Unknown] cyanocobalamin (vitamin B-12) 1,000 mcg capsule 1,000 mcg PO DAILY 01/29/21 [History Last Taken Unknown] glimepiride 2 mg tablet 2 mg PO DAILY #90 tab 01/29/21 [Rx Last Taken Unknown] metformin 500 mg tablet 500 mg PO BID #180 tab 01/29/21 [Rx Last Taken Unknown] dexamethasone 6 mg tablet 6 mg PO DAILY #7 tab 04/04/21 [Rx Last Taken Unknown] doxycycline hyclate 100 mg tablet 100 mg PO BID #20 tab 04/04/21 [Rx Last Taken Unknown] Allergy/AdvReac Type Severity Reaction Status Date / Time famotidine [From Pepcid] AdvReac Intermediate Diarrhea Verified 04/08/21 13:41 levofloxacin [From Levaquin] AdvReac Intermediate dizziness Verified 04/08/21 13:41 Family History Father Arthritis Bleeding disorder Hypertension Kidney disease Cancer Skin Anemia blood clots Emphysema lung Mother Colon cancer Cancer Lung Cancer Diabetes Brother Thyroid disorder Surgical History History of coronary artery stent placement (~10/22/13) History of excision of pilonidal cyst History of thymectomy Hx of lymph node excision Social History household members: spouse Smoking Status: Current every day smoker tobacco type: cigarettes second hand exposure: Yes quit status: considering quitting alcohol intake: current alcohol intake frequency: holidays/special occasions only substance use type: does not use caffeine: Yes Type: coffee Number of servings: 3 what type of physical activity do you participate in: none frequency: does not exercise seatbelt use: always ROS ROS Narrative See HPI Physical Exam Const alert and no apparent distress Constitutional Narrative: Lying flat Orientation / Consciousness: confused HEENT normocephalic and moist oral mucous membranes Eyes PERRL, EOMs intact bilaterally and conjunctivae normal Neck no lymphadenopathy Chest Chest: abnormal inspection of the chest increased A-P diameter; Negative for crepitus Resp Auscultation: rales and diminished lung sounds; Negative for rhonchi or wheezes Cardio regular rate, regular rhythm and no murmurs Peripheral Pulses: pulses 2+ throughout GI normal to inspection, nondistended, normoactive bowel sounds, non-tender and non-distended Extremity normal to inspection General Extremity: edema bilateral (2+) lower extremity; Negative for clubbing or cyanosis Skin no rashes or lesions noted Lesions: no lesions Rashes: no rashes Trauma: no lacerations or abrasions Neuro CN's II-XII intact bilaterally, no focal motor deficits, no sensory deficits noted and deep tendon reflexes 2+ bilaterally Psych mental status grossly normal and affect normal Lab / Micro Data Result Diagrams: 04/09/21 05:55 04/09/21 05:55 Labs: Laboratory Results - last 24 hr 04/08/21 13:40: WBC 7.1, RBC 4.09 L, Hgb 10.8 L, Hct 33.0 L, MCV 80.7, MCH 26.4 L, MCHC 32.7, RDW Std Deviation 45.4 H, RDW Coeff of Rafael 15.8 H, Plt Count 250, MPV 10.8, Immature Gran % (Auto) 1.100 H, Neut % (Auto) 74.9 H, Lymph % (Auto) 14.4 L, [place] % (Auto) 9.2, Eos % (Auto) 0.1, Baso % (Auto) 0.3, Absolute Neuts (auto) 5.3, Absolute Lymphs (auto) 1.02, Nucleated RBC % 0 04/08/21 13:40: D-Dimer Quant (PE/DVT) 6.86 H* 04/08/21 13:40: Sodium 139, Potassium 3.6, Chloride 104, Carbon Dioxide 27.0, Anion Gap 8, BUN 27 H, Creatinine 0.88, Estim Creat Clear Calc 84.51, Est GFR (MDRD) Af Amer 110, Est GFR (MDRD) Non-Af 91, BUN/Creatinine Ratio 30.8 H, Glucose 99, Calcium 9.1, Troponin I High Sens 16 04/08/21 13:40: Lactic Acid 2.5 H* 04/08/21 13:40: Urine Color Yellow, Urine Clarity Clear, Urine pH 6.0, Ur Specific [place] 1.015, Urine Protein 30 H, Urine Glucose (UA) 250 H, Urine Ketones Negative, Urine Occult Blood 10 H, Urine Nitrite Negative, Urine Bilirubin Negative, Urine Urobilinogen Normal, Ur Leukocyte Esterase Negative, Urine RBC 0-5 SEEN, Urine WBC 0 SEEN, Ur Squamous Epith Cells 0-5 SEEN, Urine Bacteria RARE, Urine Mucus 0 SEEN 04/08/21 18:13: Lactic Acid 2.2 H* 04/08/21 21:21: POC Glucose 135 H 04/09/21 05:55: WBC 6.0, RBC 3.77 L, Hgb 9.8 L, Hct 28.6 L, MCV 75.9 L D, MCH 26.0 L, MCHC 34.3, RDW Std Deviation 43.8, RDW Coeff of Rafael 16.0 H, Plt Count 159, MPV 10.7, Immature Gran % (Auto) 2.000 H, Neut % (Auto) 65.4, Lymph % (Auto) 21.8, [place] % (Auto) 8.4, Eos % (Auto) 2.2, Baso % (Auto) 0.2, Absolute Neuts (auto) 3.9, Absolute Lymphs (auto) 1.30, Nucleated RBC % 0 04/09/21 05:55: Sodium 138, Potassium 3.8, Chloride 109 H, Carbon Dioxide 21.0, Anion Gap 8, BUN 22 H, Creatinine 0.62 L, Estim Creat Clear Calc 69.96, Est GFR (MDRD) Af Amer 165, Est GFR (MDRD) Non-Af 137, BUN/Creatinine Ratio 35.7 H, Glucose 68 L, Calcium 8.0 L 04/09/21 06:45: POC Glucose 67 L 04/09/21 07:05: POC Glucose 60 L 04/09/21 07:55: POC Glucose 162 H 04/09/21 11:03: POC Glucose 175 H ABG Data ABG results: ABG 04/08/21 16:37 Specimen Type ART Sample Site L Radial pH 7.47 H Bicarbonate Actual 23.5 Total CO2 25 Base Excess 0 O2 Saturation 90 L ABG pCO2 32.0 L ABG pO2 55 L Thompson Test Positive O2 Delivery Device Cannula Liter Flow 5.0 Radiology Impression Chest X-Ray 04/08/21 13:55 IMPRESSION: 1. Median sternotomy wires and vascular clips again noted without change. 2. No pneumothorax. 3. No congestive failure. 4. Basilar atelectasis however mild asymmetry greater on the LEFT than RIGHT suspicious of superimposed LEFT infrahilar interstitial infiltrate. 5. No consolidation, congestive failure or effusion. Electronically Signed: Boston Oconnell MD at 14:19 EST , Chest CTA 04/08/21 14:17 Charges/Coding Visit Charges Inpatient E&M: 70042 Init Hosp L3
[2021-04-09] MEDS: Furosemide 40 MG/4 ML Vial IV (13:39)
[2021-04-09] MEDS: Ipratropium/Albuterol Sulfate 3 ML AMPUL.NEB INHALATION ×2 (14:24→19:06)
[2021-04-09] MEDS: Potassium Chloride Oral Tablet 20 MEQ PO (14:59)
[2021-04-09 16:10] LABS: Bedside Glucose 460 mg/dL (70-110)
[2021-04-09] MEDS: Insulin Lispro 100 UNIT/ML INSULN.PEN 10 UNIT SC (16:20)
--- NOTE | 2021-04-09 16:21 | CHAPLAIN ---
Type of Pastoral Visit _x__ Initial Visit ___ Follow-up Visit ___ On-call Visit ___ General Patient Visit ___ Spiritual Assessment ___ Family Conference ___ Bereavement ___ Rapid Response ___ Code Blue ___ Other (describe below) Pastoral Care Referral From _x__ Patient ___ Family ___ Nurse ___ Physician ___ Bricklayer Tender ___ Turret Lathe Tender ___ Other (describe below) Sacrament/Intervention _x__ Active listening ___ Anointing ___ Hindu ___ Bereavement ___ Communion ___ Lily exploration ___ ___ Life review ___ Prayer ___ Reconciliation ___ Sacrament of Sick _x__ Supportive presence ___ Wedding ___ Other (describe below) Pastoral Comments
[2021-04-09] MEDS: Insulin Lispro 100 UNIT/ML INSULN.PEN 20 UNIT SC (22:55)
[2021-04-09 23:01] LABS: Bedside Glucose > 500 mg/dL (70-110)
[2021-04-10] VITALS (15 sets, daily range): BP systolic 96–134; BP diastolic 50–68; PULSE 47–100; RESP 16–19; TEMP 36.4–36.6; O2SAT 92–99
[2021-04-10 00:06] LABS: Bedside Glucose > 500 mg/dL (70-110)
[2021-04-10] MEDS: Insulin Lispro 100 UNIT/ML INSULN.PEN 20 UNIT SC ×2 (00:31→13:12)
[2021-04-10 01:41] LABS: Bedside Glucose 422 mg/dL (70-110)
[2021-04-10 06:19] LABS: Absolute Neutrophil Count 2.5 X10^3/uL (2.0-7.7); Hematocrit 27.5 % (40-54); Hemoglobin 9.1 g/dL (13.0-16.5); Lymphocyte % 12.9 % (19-41); Mean Corp Hgb Conc 33.1 g/dL (32-36); Mean Corpuscular Volume 78.6 fL (80-94); Mean Platelet Vol. 10.5 fl (6.2-12.0); Monocyte% 6.4 % (0-10); NRBC Flagged by Analyzer 0 % (0-5); Neutrophil # 2.46 X10^3/uL (2.7-7.7); Neutrophil % 79.1 % (47-70); POSITIVE DIFFERENTIAL YES; Platelet Count 212 K/mm3 (150-450); RBC Distribution Width CV 15.7 % (11.6-14.6); RBC Distribution Width SD 45.1 fl (35.1-43.9); White Blood Count 3.1 K/mm3 (4.4-11.0)
[2021-04-10] MEDS: predniSONE 20 MG Tablet 40 MG PO (06:26)
[2021-04-10] MEDS: Insulin Lispro 100 UNIT/ML INSULN.PEN SC ×3 (06:27→21:54)
[2021-04-10 06:30] LABS: Differential Indicated SCAN CRITERIA MET
[2021-04-10 06:45] LABS: Anion Gap 6 (5-15); BUN 23 mg/dL (7-18); BUN/Creat Ratio 31.6 RATIO (10-20); Calcium,Total 7.9 mg/dL (8.5-10.1); Chloride 107 mmol/L (98-107); Creatinine, Serum 0.73 mg/dL (0.70-1.30); EST Glomerular Filtration Rate 113 mL/min (>60); Est Glom Filt Rate - Afr Amer 136 mL/min (>60); Estimated Creatinine Clearance 69.96 ml/min; Glucose 338 mg/dL (74-106); Potassium 3.7 mmol/L (3.5-5.1); Sodium Level 137 mmol/L (136-145)
[2021-04-10 06:50] LABS: Bedside Glucose 328 mg/dL (70-110)
[2021-04-10 06:52] LABS: Differential Comment SCANNED
[2021-04-10] MEDS: Ipratropium/Albuterol Sulfate 3 ML AMPUL.NEB INHALATION ×3 (07:20→21:08)
[2021-04-10] MEDS: Cholecalciferol (VIT D3) 25 MCG TABLET (1,000 UNITS) PO (09:48)
[2021-04-10] MEDS: Aspirin E.C. 81 MG Tablet PO (09:48)
[2021-04-10] MEDS: Cyanocobalamin 500 MCG Tablet 1000 MCG PO (09:48)
[2021-04-10] MEDS: Enoxaparin 40 MG/0.4 ML Syringe SC (09:49)
--- NOTE | 2021-04-10 10:37 | PN.HOSP_ITS ---
Documented by User: Luz Boyd NP, [employer] 04/10/21 10:57 Subjective Subjective Patient seen and examined. Mental status significantly improved, patient alert and oriented. at bedside. Patient denies further fever, chills. States shortness of breath is improved. Denies significant cough or other upper respiratory symptoms. Objective Data Objective Data Vital Signs: Vital Signs Temp Pulse Resp BP Pulse Ox 97.5 F L 88 18 96/54 L 94 04/10/21 08:55 04/10/21 09:47 04/10/21 08:55 04/10/21 09:47 04/10/21 08:55 Oxygen Flow Rate (L/min) 3 Oxygen Delivery Method Nasal Cannula Weight: 206 lb 5.643 oz Body Mass Index (BMI) 29.6 Intake & Output: Intake and Output for Last 24 Hours 04/08/21 04/09/21 04/10/21 23:59 23:59 23:59 Intake Total 1055 / 1820 3727.5 / 3967.5 480 / 480 Output Total 630 / 630 750 / 1800 1750 / 1750 Balance 425 / 1190 2977.5 / 2167.5 -1270 / -1270 Medical Nutrition Assessment Dietitian: Malnutrition Criteria Met Start: 04/09/21 15:50 Freq: Status: Active Protocol: Document 04/09/21 15:51 RMA (Rec: 04/09/21 15:51 RMA [id number]) Nutrition Malnutrition Evidence of Malnutrition Exists Yes Malnutrition (severe): Acute Illness/Injury Evidenced By Suboptimal Energy Intake ( Severe),Weight Loss (Severe) Clinical Problem Acute Disease or Injury Related Malnutrition Etiology Severe protein-calorie malnutrition in the context of acute illness related to inadequate oral intake Signs/Symptoms as evidenced by ~5-6% wt loss x past 1 month and PO meeting less than 50% estimated nutrition needs x past 2-4 weeks Status Active Problem Recommendation Dietitian Recommendations/Changes Will adjust diet to 2000 calorie/consistent carbohydrate; cardiac diet. Will add 240ml glucerna shake BID w/ breakfast and dinner. Lab / Micro Data Result Diagrams: 04/10/21 05:50 04/10/21 11:50 Labs: Laboratory Results - last 24 hr 04/09/21 11:03: POC Glucose 175 H 04/09/21 16:06: POC Glucose 460 H* 04/09/21 22:38: POC Glucose > 500 H* 04/09/21 23:44: POC Glucose > 500 H* 04/10/21 01:38: POC Glucose 422 H 04/10/21 05:50: WBC 3.1 L, RBC 3.50 L, Hgb 9.1 L, Hct 27.5 L, MCV 78.6 L, MCH 26.0 L, MCHC 33.1, RDW Std Deviation 45.1 H, RDW Coeff of Rafael 15.7 H, Plt Count 212, MPV 10.5, Immature Gran % (Auto) 1.600 H, Neut % (Auto) 79.1 H, Lymph % (Auto) 12.9 L, [place] % (Auto) 6.4, Eos % (Auto) 0.0, Baso % (Auto) 0.0, Absolute Neuts (auto) 2.5, Absolute Lymphs (auto) 0.40 L, Nucleated RBC % 0, Differential Comment SCANNED, Diff Path Review June foll 04/10/21 05:50: Sodium 137, Potassium 3.7, Chloride 107, Carbon Dioxide 24.0, Anion Gap 6, BUN 23 H, Creatinine 0.73, Estim Creat Clear Calc 69.96, Est GFR (MDRD) Af Amer 136, Est GFR (MDRD) Non-Af 113, BUN/Creatinine Ratio 31.6 H, Glucose 338 H, Calcium 7.9 L 04/10/21 06:25: POC Glucose 328 H Micro: Microbiology 04/09/21 14:20 Mucosa - Nasopharyngeal Respiratory Panel (PCR) - Final Rhinovirus Physical Exam Const alert, oriented x3 and no apparent distress Orientation / Consciousness: awake, oriented to person, oriented to place and oriented to time HEENT normocephalic and moist oral mucous membranes Eyes PERRL, EOMs intact bilaterally and conjunctivae normal Neck no lymphadenopathy Resp Auscultation: wheezes and diminished lung sounds Cardio regular rate, regular rhythm and no murmurs Peripheral Pulses: pulses 2+ throughout GI normal to inspection, nondistended, normoactive bowel sounds, non-tender and non-distended Extremity normal to inspection Skin no rashes or lesions noted Lesions: no lesions Rashes: no rashes Trauma: no lacerations or abrasions Neuro CN's II-XII intact bilaterally, no focal motor deficits, no sensory deficits noted and deep tendon reflexes 2+ bilaterally Psych mental status grossly normal and affect normal Assessment & Plan Assessment/Plan (1) Acute respiratory failure with hypoxia: PLAN: 1. Acute on chronic hypoxic respiratory failure secondary to exacerbation of COPD/asthma overlap syndrome as result of rhinovirus, complicated by recent Covid infection-recently discharged on 3 L supplemental oxygen. Patient placed on IV Rocephin and IV azithromycin on admission for suspected superimposed pneumonia. Continue empiric antibiotics pending blood and sputum cultures. Likely discontinue antibiotics in 48 hours if cultures remain negative. Albuterol and DuoNeb aerosols. IV Solu-Medrol. Pulmonary consulted. Repeat oxygen testing prior to discharge. Likely discharge 04/11/21 if continued improvement. 2. Acute metabolic encephalopathy-secondary to #1, encephalopathy resolved. Continue treatment per above. 3. Recent COVID-19 infection-completed remdesivir and dexamethasone. 4. CAD with history of stents-continue aspirin, metoprolol. Not on statin. 5. Type 2 diabetes [id number] with sliding scale insulin. 6. Hypertension-continue metoprolol. 7. History of non-Hodgkin's lymphoma 8. History of rheumatoid arthritis- not on regimen. 9. Tobacco dependence-encouraged cessation. 10. Chronic microcytic anemia/iron deficiency-stable, continue iron supplementation. DVT prophylaxis-Lovenox subcu This patient was seen by SORIN Hansen under the supervision of Dr. Cruz. Time spent examining patient, reviewing data and subsequent management of care: 10 Minutes Documented by User: Dr. Marco Cruz, DO 04/10/21 14:59 Subjective Subjective Oxygen requirements decreased from 9 to 4 L. Eating well. Objective Data Lab / Micro Data Result Diagrams: 04/10/21 05:50 04/10/21 11:50 Physical Exam Const alert and no apparent distress Resp normal respiratory effort, no retractions, no use of accessory muscles and clear to auscultation bilaterally Cardio regular rate, regular rhythm, S1 normal heart sound and S2 normal heart sound GI normal to inspection, nondistended, normoactive bowel sounds, soft to palpation, non-tender and non-distended Extremity normal to inspection Assessment & Plan Assessment/Plan (1) Acute respiratory failure with hypoxia: PLAN: Patient seen and examined independently. Data and vitals reviewed. I agree with the above note by the nurse practitioner. 1. Acute metabolic encephalopathy: Likely secondary to hypoxia. Since resol franklin. 2. Acute on chronic hypoxic respiratory failure. Secondary to COVID-19 but now also rhinovirus. Patient previously had COVID-19 and was discharged on 3 L and currently is on 9 L. Seen by pulmonology. Patient continue with antibiotics. Follow-up on cultures. Change to prednisone with taper. Greater than 20 minutes of which greater than 50% time was counseling patient and his at bedside. Charges/Coding Visit Charges Inpatient E&M: 72399 Subs Hosp L2
--- NOTE | 2021-04-10 10:40 | PCM.PN.INT ---
Assessment & Plan Assessment/Plan (1) Acute alteration in mental status: (2) Hypoxemia: (3) Nicotine dependence, cigarettes, uncomplicated: (4) Diabetes: (5) Non-Hodgkin lymphoma: (6) RA (rheumatoid arthritis): QUALIFIERS: Rheumatoid factor presence: unspecified presence Laterality: unspecified laterality PLAN: RECOMMENDATIONS: 1. Discontinue antibiotics 2. Transition to prednisone therapy wean over the next 12 to 14 days 3. Await sputum culture 4. Challenge with diuretics. Supplement potassium if needed 5. Wean oxygen as tolerated. Walking oximetry prior to discharge 6. Potential discharge if able to ambulate on 6 L or less IMPRESSIONS: 1. Acute on chronic hypoxic respiratory insufficiency with recent COVID-19 in the setting of COPD/asthma overlap syndrome Patient does have groundglass opacities noted on CTA of the chest. Unclear if this is residual from previous COVID-19 versus a secondary process. Patient is immunosuppressed at baseline secondary to rheumatoid arthritis, so may not have a significant leukocytosis. Patient has come back positive for rhinovirus. This would explain current presentation. We will challenge patient with diuretics given lower extremity edema. We will continue to diurese as tolerated. We will transition to prednisone therapy. Patient does have underlying COPD/asthma overlap syndrome. Continue bronchodilators. Continue to wean oxygen as tolerated. Patient will need a walking oximetry prior to discharge. Okay to discharge if able to ambulate on 6 L or less 2. Acute metabolic encephalopathy Clinical suspicion that this is secondary to hypoxia. ABG did not show significant CO2 retention. Delirium secondary to acute infectious etiology would also be a consideration. Patient does appear to be improving with current therapy. We will continue to monitor. 3. Coronary artery disease status post stents/type 2 diabetes mellitus/hypertension/history of RA/history of lymphoma/tobacco dependence Complicates care, management, recovery and prognosis. Will need to watch blood sugars closely given steroids using for problem #1. Blood pressures appear to be relatively controlled at this time. Continue current medications. Patient can be offered nicotine replacement if necessary. Did confirm with the patient and his that he is a full code. Subjective Subjective Patient did okay overnight. No acute issues were reported. Patient subjectively feels improved compared to previous. Patient is tolerating 4 L nasal cannula. Patient continues to have a cough that is largely nonproductive. Objective Data Objective Data Vital Signs: Vital Signs Temp Pulse Resp BP Pulse Ox 36.4 C L 88 18 96/54 L 94 04/10/21 08:55 04/10/21 09:47 04/10/21 08:55 04/10/21 09:47 04/10/21 08:55 Oxygen Flow Rate (L/min) 3 Oxygen Delivery Method Nasal Cannula Weight: 93.6 kg Body Mass Index (BMI) 29.6 Intake & Output: Intake and Output for Last 24 Hours 04/08/21 04/09/21 04/10/21 23:59 23:59 23:59 Intake Total 1055 / 1820 3727.5 / 3967.5 480 / 480 Output Total 630 / 630 750 / 1800 1750 / 1750 Balance 425 / 1190 2977.5 / 2167.5 -1270 / -1270 Medical Nutrition Assessment Dietitian: Malnutrition Criteria Met Start: 04/09/21 15:50 Freq: Status: Active Protocol: Document 04/09/21 15:51 RMA (Rec: 04/09/21 15:51 RMA [id number]) Nutrition Malnutrition Evidence of Malnutrition Exists Yes Malnutrition (severe): Acute Illness/Injury Evidenced By Suboptimal Energy Intake ( Severe),Weight Loss (Severe) Clinical Problem Acute Disease or Injury Related Malnutrition Etiology Severe protein-calorie malnutrition in the context of acute illness related to inadequate oral intake Signs/Symptoms as evidenced by ~5-6% wt loss x past 1 month and PO meeting less than 50% estimated nutrition needs x past 2-4 weeks Status Active Problem Recommendation Dietitian Recommendations/Changes Will adjust diet to 2000 calorie/consistent carbohydrate; cardiac diet. Will add 240ml glucerna shake BID w/ breakfast and dinner. Lab / Micro Data Result Diagrams: 04/10/21 05:50 04/10/21 05:50 Labs: Laboratory Results - last 24 hr 04/09/21 11:03: POC Glucose 175 H 04/09/21 16:06: POC Glucose 460 H* 04/09/21 22:38: POC Glucose > 500 H* 04/09/21 23:44: POC Glucose > 500 H* 04/10/21 01:38: POC Glucose 422 H 04/10/21 05:50: WBC 3.1 L, RBC 3.50 L, Hgb 9.1 L, Hct 27.5 L, MCV 78.6 L, MCH 26.0 L, MCHC 33.1, RDW Std Deviation 45.1 H, RDW Coeff of Rafael 15.7 H, Plt Count 212, MPV 10.5, Immature Gran % (Auto) 1.600 H, Neut % (Auto) 79.1 H, Lymph % (Auto) 12.9 L, [place] % (Auto) 6.4, Eos % (Auto) 0.0, Baso % (Auto) 0.0, Absolute Neuts (auto) 2.5, Absolute Lymphs (auto) 0.40 L, Nucleated RBC % 0, Differential Comment SCANNED, Diff Path Review June foll 04/10/21 05:50: Sodium 137, Potassium 3.7, Chloride 107, Carbon Dioxide 24.0, Anion Gap 6, BUN 23 H, Creatinine 0.73, Estim Creat Clear Calc 69.96, Est GFR (MDRD) Af Amer 136, Est GFR (MDRD) Non-Af 113, BUN/Creatinine Ratio 31.6 H, Glucose 338 H, Calcium 7.9 L 04/10/21 06:25: POC Glucose 328 H Micro: Microbiology 04/09/21 14:20 Mucosa - Nasopharyngeal Respiratory Panel (PCR) - Final Rhinovirus Physical Exam Const alert and no apparent distress Constitutional Narrative: Sitting at the bedside Orientation / Consciousness: confused HEENT normocephalic and moist oral mucous membranes Eyes PERRL, EOMs intact bilaterally and conjunctivae normal Neck no lymphadenopathy Chest Chest: abnormal inspection of the chest increased A-P diameter; Negative for crepitus Resp Auscultation: rales and diminished lung sounds; Negative for rhonchi or wheezes Cardio regular rate, regular rhythm and no murmurs Peripheral Pulses: pulses 2+ throughout GI normal to inspection, nondistended, normoactive bowel sounds, non-tender and non-distended Extremity normal to inspection General Extremity: edema bilateral (2+) lower extremity; Negative for clubbing or cyanosis Skin no rashes or lesions noted Lesions: no lesions Rashes: no rashes Trauma: no lacerations or abrasions Neuro CN's II-XII intact bilaterally, no focal motor deficits, no sensory deficits noted and deep tendon reflexes 2+ bilaterally Psych mental status grossly normal and affect normal Charges/Coding Visit Charges Inpatient E&M: 53182 Subs Hosp L2
[2021-04-10] MEDS: 0.9% Saline Lock 10 ML Syringe IV (11:23)
[2021-04-10] MEDS: Furosemide 40 MG/4 ML Vial IV (11:23)
[2021-04-10 11:31] LABS: Bedside Glucose > 500 mg/dL (70-110)
--- NOTE | 2021-04-10 12:14 | CASEMGMT ---
Readmission chart review: 03/14/21 ED visit-dx'd with COVID-sent home on 3L continuous 03/22-03/25/21 Encephalopathy, COVID, hypoxia 04/08/21-current Acute metabolic encephalopathy Pt initially dx'd with COVID in ED on 03/14/21 and set up with 2L continuous home oxygen thru [employer] but per [employer], pt refused concentrator at home multiple times and only has tanks, so pt is likely not wearing continuous. Pt returned to [facility] ED on 03/22/21 with c/o feeling weak and unsteady on feet. Pt was admitted to PCU and pt stated at that time that pt was wearing oxygen prn but they did have pulse ox at home and they were checking sats. Pt did not qualify for home oxygen at discharge from PCU but order was left d/t COVID dx. Pt did f/u with Dr. Will on 03/28/21 and had telehealth well check f/u on 04/04/21 with same office. Pt returned to [facility] ED on 04/08/21 for increased confusion/lethargy. Pt admitted back to PCU for Acute metabolic encephalopathy. Pt is currently A/Ox3 and is on 3-4L nc. Pt went 70ft supervision/SBA with PT yesterday and OT states no need for skilled OT. CM to follow for any further d/c planning/needs. Wendy RASCON CM
[2021-04-10 12:42] LABS: Glucose 529 mg/dL (74-106)
[2021-04-10] MEDS: Ferrous Sulfate 325 MG Tablet PO ×2 (12:59→17:50)
[2021-04-10 16:16] LABS: Bedside Glucose > 500 mg/dL (70-110)
[2021-04-10 17:23] LABS: Glucose 473 mg/dL (74-106)
[2021-04-10] MEDS: Insulin Lispro 100 UNIT/ML INSULN.PEN 8 UNIT SC (17:47)
[2021-04-10] MEDS: Metoprolol Tartrate 25 MG Tablet PO (21:55)
[2021-04-10 22:46] LABS: Bedside Glucose 411 mg/dL (70-110)
[2021-04-11] VITALS (18 sets, daily range): BP systolic 99–111; BP diastolic 48–59; PULSE 70–96; RESP 16–20; TEMP 36.6–38.6; O2SAT 85–97
[2021-04-11] MEDS: Acetaminophen 325 MG Tablet 650 MG PO (03:20)
[2021-04-11 03:56] LABS: Absolute Neutrophil Count 5.7 X10^3/uL (2.0-7.7); Basophil# 0.02 X10^3/uL; Basophil% 0.3 % (0-1); Eosinophil# 0.01 X10^3/uL; Eosinophils% 0.1 % (0-5); Hematocrit 30.3 % (40-54); Hemoglobin 10.2 g/dL (13.0-16.5); Lymphocyte % 7.3 % (19-41); Mean Corp Hgb Conc 33.7 g/dL (32-36); Mean Corpuscular Hgb 25.6 pg (27.0-32.0); Mean Corpuscular Volume 75.9 fL (80-94); Mean Platelet Vol. 11.3 fl (6.2-12.0); Monocyte# 0.53 X10^3/uL; Monocyte% 7.7 % (0-10); NRBC Flagged by Analyzer 0 % (0-5); Neutrophil # 5.72 X10^3/uL (2.7-7.7); Neutrophil % 83.4 % (47-70); POSITIVE DIFFERENTIAL YES; Platelet Count 295 K/mm3 (150-450); RBC Distribution Width CV 15.9 % (11.6-14.6); Red Blood Count 3.99 M/mm3 (4.6-6.2); White Blood Count 6.9 K/mm3 (4.4-11.0)
[2021-04-11 03:59] LABS: Differential Indicated SCAN CRITERIA MET
[2021-04-11 04:14] LABS: Differential Comment SCANNED
[2021-04-11 04:36] LABS: ALB/GLOB Ratio 0.7 RATIO (0.9-2.4); AST(SGOT) 14 U/L (15-37); Alanine Aminotransfer ALT/SGPT 29 U/L (16-61); Albumin, Serum 2.3 g/dL (3.2-5.0); Alkaline Phosphatase 62 U/L (45-117); Anion Gap 8 (5-15); BUN 27 mg/dL (7-18); BUN/Creat Ratio 33.3 RATIO (10-20); Calcium,Total 8.2 mg/dL (8.5-10.1); Chloride 103 mmol/L (98-107); Creatinine, Serum 0.81 mg/dL (0.70-1.30); EST Glomerular Filtration Rate 100 mL/min (>60); Est Glom Filt Rate - Afr Amer 121 mL/min (>60); Estimated Creatinine Clearance 86.37 ml/min; Globulin 3.5 g/dL (2.2-4.2); Glucose 171 mg/dL (74-106); Magnesium 1.8 mg/dL (1.6-2.6); Potassium 3.8 mmol/L (3.5-5.1); Protein, Total 5.8 g/dL (6.4-8.2); Sodium Level 135 mmol/L (136-145)
[2021-04-11] MEDS: 0.9% Saline Lock 10 ML Syringe IV ×2 (05:34→07:31)
[2021-04-11 06:51] LABS: Bedside Glucose 126 mg/dL (70-110)
[2021-04-11] MEDS: Ipratropium/Albuterol Sulfate 3 ML AMPUL.NEB INHALATION ×3 (07:13→14:53)
[2021-04-11 09:41] LABS: Pathologist Review Reviewed
--- NOTE | 2021-04-11 09:51 | PCM.DC ---
Discharge Instructions Diet Discharge Diet: Low fat / Low cholesterol Activity Discharge Activity: Return to Normal Activity Dressing / Incision Call your doctor if you observe: Fever of 101 or Higher, Shortness of breath, Dizziness and Chest pain Follow Up Care Test Results: Test results from this visit will be discussed in further detail at your follow-up appointment, if applicable. Discharge Plan Admission Admit Date/Time: 04/08/21 16:39 Primary Reason for Your Visit: COPD, rhinovirus Attending Provider: Marco Cruz Primary Care Provider: Donna Will Consulting Providers: Alexi Roblero Discharge Orders/Prescriptions Prescriptions: New prednisone 10 mg tablet See Taper mg PO DAILY Qty: 30 RF: 0 albuterol sulfate 90 mcg/actuation HFA aerosol inhaler 2 puff inhalation Q6H PRN (Reason: shortness of breath or wheezing) Qty: 6.7 RF: 0 Continued aspirin [Adult Aspirin Regimen] 81 mg tablet,delayed release (DR/EC) 81 mg PO DAILY RF: 0 cholecalciferol (vitamin D3) 25 mcg (1,000 unit) capsule 25 mcg PO DAILY RF: 0 nitroglycerin [Nitrostat] 0.4 mg tablet, sublingual 0.4 mg SUBLINGUAL Q5M PRN (Reason: chest pain) Qty: 30 RF: 0 cyanocobalamin (vitamin B-12) 1,000 mcg capsule 1,000 mcg PO DAILY RF: 0 metformin 500 mg tablet 500 mg PO BID Qty: 180 RF: 1 glimepiride 2 mg tablet 2 mg PO DAILY Qty: 90 RF: 1 ferrous sulfate 325 mg (65 mg iron) tablet 325 mg PO BID Qty: 60 RF: 0 metoprolol tartrate 25 mg tablet 25 mg PO BID Qty: 180 RF: 1 Discontinued doxycycline hyclate 100 mg tablet 100 mg PO BID Qty: 20 RF: 0 dexamethasone 6 mg tablet 6 mg PO DAILY Qty: 7 RF: 0 Referrals / Follow Up: Donna Will MD [Primary Care Provider] - In 1 Week More Pulido NP, OCCUPATIONAL THERAPY PROGRAM DIRECTOR-C [Nurse Practitioner] - In 1 Week Disposition Disposition (needs filled in before D/C Order can be placed): Home, Self Care
--- NOTE | 2021-04-11 09:55 | PN.CC_ITS ---
Assessment & Plan Assessment/Plan (1) Acute alteration in mental status: (2) Hypoxemia: (3) Nicotine dependence, cigarettes, uncomplicated: (4) Diabetes: (5) Non-Hodgkin lymphoma: (6) RA (rheumatoid arthritis): QUALIFIERS: Rheumatoid factor presence: unspecified presence Laterality: unspecified laterality PLAN: RECOMMENDATIONS: 1. No need to resume home antibiotics 2. Transition to prednisone therapy wean over the next 12 to 14 days 3. Await final sputum culture 4. Challenge with diuretics as tolerated. Supplement potassium if needed 5. Wean oxygen as tolerated. Walking oximetry prior to discharge 6. Potential discharge if able to ambulate on 6 L or less IMPRESSIONS: 1. Acute on chronic hypoxic respiratory insufficiency with recent COVID-19 in the setting of COPD/asthma overlap syndrome Patient does have groundglass opacities noted on CTA of the chest. Unclear if this is residual from previous COVID-19 versus a secondary process. Patient is immunosuppressed at baseline secondary to rheumatoid arthritis, so ma y not have a significant leukocytosis. Patient has come back positive for rhinovirus. This would explain current presentation. We will challenge patient with diuretics given lower extremity edema. We will continue to diurese as tolerated. Prednisone is making control of diabetes difficult, but appears to be improving. Patient does have underlying COPD/asthma overlap syndrome. Continue bronchodilators. Continue to wean oxygen as tolerated. Patient will need a walking oximetry prior to discharge. Okay to discharge if able to ambulate on 6 L or less. Patient should follow-up in our office in 2 weeks with nurse practitioner 2. Acute metabolic encephalopathy Resolved. Clinical suspicion that this is secondary to hypoxia. ABG did not show significant CO2 retention. Delirium secondary to acute infectious etiology would also be a consideration. We will continue to monitor. 3. Coronary artery disease status post stents/type 2 diabetes mellitus/hypertension/history of RA/history of lymphoma/tobacco dependence Complicates care, management, recovery and prognosis. Will need to watch blood sugars closely given steroids using for problem #1. Blood pressures appear to be relatively controlled at this time. Continue current medications. Patient can be offered nicotine replacement if necessary. Did confirm with the patient and his that he is a full code. Subjective Subjective Patient did well overnight. No acute issues outside of fever were reported. Oxygenation continues to improve. Patient continues to report a cough, but joyce bjectively feels shortness of breath is improving. Objective Data Objective Data Vital Signs: Vital Signs Temp Pulse Resp BP Pulse Ox 37.1 C 70 16 107/59 L 97 04/11/21 05:23 04/11/21 07:00 04/11/21 05:23 04/11/21 05:23 04/11/21 05:23 Oxygen Flow Rate (L/min) 4 Oxygen Delivery Method Nasal Cannula Weight: 93.6 kg Body Mass Index (BMI) 29.6 Intake & Output: Intake and Output for Last 24 Hours 04/09/21 04/10/21 04/11/21 23:59 23:59 23:59 Intake Total 3727.5 / 3967.5 1480 / 1780 644 / 644 Output Total 750 / 1800 2150 / 2650 800 / 800 Balance 2977.5 / 2167.5 -670 / -870 -156 / -156 Medical Nutrition Assessment Dietitian: Malnutrition Criteria Met Start: 04/09/21 15:50 Freq: Status: Active Protocol: Document 04/09/21 15:51 RMA (Rec: 04/09/21 15:51 RMA [id number]) Nutrition Malnutrition Evidence of Malnutrition Exists Yes Malnutrition (severe): Acute Illness/Injury Evidenced By Suboptimal Energy Intake ( Severe),Weight Loss (Severe) Clinical Problem Acute Disease or Injury Related Malnutrition Etiology Severe protein-calorie malnutrition in the context of acute illness related to inadequate oral intake Signs/Symptoms as evidenced by ~5-6% wt loss x past 1 month and PO meeting less than 50% estimated nutrition needs x past 2-4 weeks Status Active Problem Recommendation Dietitian Recommendations/Changes Will adjust diet to 2000 calorie/consistent carbohydrate; cardiac diet. Will add 120ml glucerna shake TID w/ meals. Will d/c as indicated if PO adequate. Lab / Micro Data Result Diagrams: 04/11/21 03:45 04/11/21 03:45 Labs: Laboratory Results - last 24 hr 04/10/21 05:50: Diff Path Review Reviewed 04/10/21 11:19: POC Glucose > 500 H* 04/10/21 11:50: Glucose 529 H* 04/10/21 16:05: POC Glucose > 500 H* 04/10/21 16:35: Glucose 473 H* 04/10/21 21:53: POC Glucose 411 H 04/11/21 03:45: WBC 6.9, RBC 3.99 L, Hgb 10.2 L, Hct 30.3 L, MCV 75.9 L, MCH 25.6 L, MCHC 33.7, RDW Std Deviation 43.0, RDW Coeff of Rafael 15.9 H, Plt Count 295, MPV 11.3, Immature Gran % (Auto) 1.200 H, Neut % (Auto) 83.4 H, Lymph % (Auto) 7.3 L, [place] % (Auto) 7.7, Eos % (Auto) 0.1, Baso % (Auto) 0.3, Absolute Neuts (auto) 5.7, Absolute Lymphs (auto) 0.50 L, Nucleated RBC % 0, Differential Comment SCANNED 04/11/21 03:45: Sodium 135 L, Potassium 3.8, Chloride 103, Carbon Dioxide 24.0, Anion Gap 8, BUN 27 H, Creatinine 0.81, Estim Creat Clear Calc 86.37, Est GFR (MDRD) Af Amer 121, Est GFR (MDRD) Non-Af 100, BUN/Creatinine Ratio 33.3 H, Glu cose 171 H, Calcium 8.2 L, Magnesium 1.8, Total Bilirubin 0.30, AST 14 L, ALT 29, Alkaline Phosphatase 62, Total Protein 5.8 L, Albumin 2.3 L, Globulin 3.5, Albumin/Globulin Ratio 0.7 L 04/11/21 06:43: POC Glucose 126 H Micro: Microbiology 04/08/21 14:25 Blood Culture (Wb) - Anticubital Right Blood Culture - Preliminary No growth in 48 hours. 04/08/21 13:40 Blood Culture (Wb) - Anticubital Left Blood Culture - Preliminary No growth in 48 hours. 04/09/21 20:10 Sputum, Expectorated/Coughed Gram Stain - Final 04/09/21 14:20 Mucosa - Nasopharyngeal Respiratory Panel (PCR) - Final Rhinovirus Physical Exam Const alert and no apparent distress Constitutional Narrative: Lying in bed on my examination Orientation / Consciousness: confused HEENT normocephalic and moist oral mucous membranes Eyes PERRL, EOMs intact bilaterally and conjunctivae normal Neck no lymphadenopathy Chest Chest: abnormal inspection of the chest increased A-P diameter; Negative for crepitus Resp Auscultation: rales and diminished lung sounds; Negative for rhonchi or wheezes Cardio regular rate, regular rhythm and no murmurs Peripheral Pulses: pulses 2+ throughout GI normal to inspection, nondistended, normoactive bowel sounds, non-tender and non-distended Extremity normal to inspection General Extremity: edema bilateral (2+) lower extremity; Negative for clubbing or cyanosis Skin no rashes or lesions noted Lesions: no lesions Rashes: no rashes Trauma: no lacerations or abrasions Neuro CN's II-XII intact bilaterally, no focal motor deficits, no sensory deficits noted and deep tendon reflexes 2+ bilaterally Psych mental status grossly normal and affect normal Charges/Coding Visit Charges Inpatient E&M: 70342 Subs Hosp L2
--- NOTE | 2021-04-11 10:02 | PCM.DC.SUM ---
Documented by User: Luz Boyd NP, SPRINKLER REPAIR TECHNICIAN-C 04/11/21 12:53 Providers Date of Admission: 04/08/21 Date of Discharge: 04/11/21 Primary Care Physician: Dr. Donna Will MD Consultations 04/09/21 12:20 Consult: Masking Machine Operator / Pulmonary Medicine Routine Consulting Provider: Alexi Roblero Reason for Consult: Respiratory failure EMERGENT Consult: No MD Notified: Yes Date Notified: 04/09/21 Time Notified: 12:20 Method of Notification: Text Reason For Visit: ACUTE METABOLIC ENCEPHALOPATHY Diagnosis Discharge Diagnosis (1) Acute alteration in mental status: Status: Acute Code(s): R41.82 - Altered mental status, unspecified (2) Hypoxemia: Status: Acute Code(s): R09.02 - Hypoxemia (3) Nicotine dependence, cigarettes, uncomplicated: Status: Acute Code(s): F17.210 - Nicotine dependence, cigarettes, uncomplicated (4) Diabetes: Status: Acute Code(s): E11.9 - Type 2 diabetes mellitus without complications (5) Non-Hodgkin lymphoma: Status: Chronic Code(s): C85.90 - Non-Hodgkin lymphoma, unspecified, unspecified site (6) RA (rheumatoid arthritis): Status: Chronic Code(s): M06.9 - Rheumatoid arthritis, unspecified Qualifiers: Laterality: unspecified laterality Rheumatoid factor presence: unspecified presence Medications at Discharge Home Medications aspirin 81 mg tablet,delayed release 81 mg PO DAILY 09/28/19 cholecalciferol (vitamin D3) 25 mcg (1,000 unit) capsule 25 mcg PO DAILY 07/17/20 ferrous sulfate 325 mg (65 mg iron) tablet 325 mg PO BID #60 tab 07/18/20 metoprolol tartrate 25 mg tablet 25 mg PO BID #180 tab 09/12/20 nitroglycerin 0.4 mg sublingual tablet 0.4 mg SUBLINGUAL Q5M PRN #30 tab 09/25/20 cyanocobalamin (vitamin B-12) 1,000 mcg capsule 1,000 mcg PO DAILY 01/29/21 glimepiride 2 mg tablet 2 mg PO DAILY #90 tab 01/29/21 metformin 500 mg tablet 500 mg PO BID #180 tab 01/29/21 albuterol sulfate 2 puff INHALATION Q6H PRN #6.7 g 04/11/21 prednisone See Taper PO DAILY #30 tab 04/11/21 Hospital Course Operations None Procedures None Summary of Care Provided Hospital Course: Patient is a 70-year-old male admitted 04/08/21 due to shortness of breath. 1. Acute on chronic hypoxic respiratory failure secondary to exacerbation of COPD/asthma overlap syndrome as result of rhinovirus, complicated by recent Covid infection-recently discharged on 3 L supplemental oxygen. Patient placed on IV Rocephin and IV azithromycin on admission for suspected superimposed pneumonia. Respiratory panel positive for rhinovirus. Blood and sputum cultures negative, further antibiotics discontinued. Pulmonary medicine consulted during admission. Discharged on prednisone taper and as needed albuterol inhaler. Follow-up with pulmonary and PCP in 1 week. 2. Acute metabolic encephalopathy-secondary to #1, encephalopathy resolved. 3. Recent COVID-19 infection-completed remdesivir and dexamethasone. 4. CAD with history of stents-continue aspirin, metoprolol. Not on statin. 5. Type 2 diabetes mellitus-glucose elevated during admission due to steroid use. Continue home oral regimen at discharge. 6. Hypertension-continue metoprolol. 7. History of non-Hodgkin's lymphoma 8. History of rheumatoid arthritis- not on regimen. 9. Tobacco dependence-encouraged cessation. 10. Chronic microcytic anemia/iron deficiency-stable, continue iron supplementation. Physical Exam Const alert, oriented x3 and no apparent distress Orientation / Consciousness: awake, oriented to person, oriented to place and oriented to time HEENT normocephalic and moist oral mucous membranes Eyes PERRL, EOMs intact bilaterally and conjunctivae normal Neck no lymphadenopathy Resp Auscultation: diminished, clear to auscultation Cardio regular rate, regular rhythm and no murmurs Peripheral Pulses: pulses 2+ throughout GI normal to inspection, nondistended, normoactive bowel sounds, non-tender and non-distended Extremity normal to inspection Skin no rashes or lesions noted Lesions: no lesions Rashes: no rashes Trauma: no lacerations or abrasions Neuro CN's II-XII intact bilaterally, no focal motor deficits, no sensory deficits noted and deep tendon reflexes 2+ bilaterally Psych mental status grossly normal and affect normal Patient seen and examined prior to discharge. Physical assessment as noted above. Patient is stable for discharge with follow up recommendations as noted above. This patient was seen by SORIN Hansen under the supervision of Dr. Cruz. Time spent examining patient, reviewing data and subsequent management of care: 14 Minutes Medical Records Data Medical Nutrition Assessment Dietitian: Malnutrition Criteria Met Start: 04/09/21 15:50 Freq: Status: Active Protocol: Document 04/09/21 15:51 RMA (Rec: 04/09/21 15:51 RMA [id number]) Nutrition Malnutrition Evidence of Malnutrition Exists Yes Malnutrition (severe): Acute Illness/Injury Evidenced By Suboptimal Energy Intake ( Severe),Weight Loss (Severe) Clinical Problem Acute Disease or Injury Related Malnutrition Etiology Severe protein-calorie malnutrition in the context of acute illness related to inadequate oral intake Signs/Symptoms as evidenced by ~5-6% wt loss x past 1 month and PO meeting less than 50% estimated nutrition needs x past 2-4 weeks Status Active Problem Recommendation Dietitian Recommendations/Changes Will adjust diet to 2000 calorie/consistent carbohydrate; cardiac diet. Will add 120ml glucerna shake TID w/ meals. Will d/c as indicated if PO adequate. Weight / BMI Weight Weight: 206 lb 5.643 oz Body Mass Index (BMI) 29.6 ABG / Lab / Microbiology Data Result Diagrams: 04/11/21 03:45 04/11/21 03:45 Laboratory: Laboratory Results - last 24 hr 04/10/21 05:50: Diff Path Review Reviewed 04/10/21 11:19: POC Glucose > 500 H* 04/10/21 11:50: Glucose 529 H* 04/10/21 16:05: POC Glucose > 500 H* 04/10/21 16:35: Glucose 473 H* 04/10/21 21:53: POC Glucose 411 H 04/11/21 03:45: WBC 6.9, RBC 3.99 L, Hgb 10.2 L, Hct 30.3 L, MCV 75.9 L, MCH 25.6 L, MCHC 33.7, RDW Std Deviation 43.0, RDW Coeff of Rafael 15.9 H, Plt Count 295, MPV 11.3, Immature Gran % (Auto) 1.200 H, Neut % (Auto) 83.4 H, Lymph % (Auto) 7.3 L, Johnson % (Auto) 7.7, Eos % (Auto) 0.1, Baso % (Auto) 0.3, Absolute Neuts (auto) 5.7, Absolute Lymphs (auto) 0.50 L, Nucleated RBC % 0, Differential Comment SCANNED 04/11/21 03:45: Sodium 135 L, Potassium 3.8, Chloride 103, Carbon Dioxide 24.0, Anion Gap 8, BUN 27 H, Creatinine 0.81, Estim Creat Clear Calc 86.37, Est GFR (MDRD) Af Amer 121, Est GFR (MDRD) Non-Af 100, BUN/Creatinine Ratio 33.3 H, Glucose 171 H, Calcium 8.2 L, Magnesium 1.8, Total Bilirubin 0.30, AST 14 L, ALT 29, Alkaline Phosphatase 62, Total Protein 5.8 L, Albumin 2.3 L, Globulin 3.5, Albumin/Globulin Ratio 0.7 L 04/11/21 06:43: POC Glucose 126 H Microbiology: Microbiology 04/08/21 14:25 Blood Culture (Wb) - Anticubital Right Blood Culture - Preliminary No growth in 48 hours. 04/08/21 13:40 Blood Culture (Wb) - Anticubital Left Blood Culture - Preliminary No growth in 48 hours. 04/09/21 20:10 Sputum, Expectorated/Coughed Gram Stain - Final 04/09/21 14:20 Mucosa - Nasopharyngeal Respiratory Panel (PCR) - Final Rhinovirus D/C Instructions Discharge Diet: Low fat / Low cholesterol Call your doctor if you observe: Fever of 101 or Higher, Shortness of breath, Dizziness and Chest pain Meaningful Use Info Meaningful Use Diagnoses (Choose all that apply): None applicable Discharge Plan Admission Admit Date/Time: 04/08/21 16:39 Primary Reason for Your Visit: COPD, rhinovirus Attending Provider: Marco Cruz Primary Care Provider: Donna Wlil Consulting Providers: Alexi Roblero Discharge Orders/Prescriptions Prescriptions: New prednisone 10 mg tablet See Taper mg PO DAILY Qty: 30 RF: 0 albuterol sulfate 90 mcg/actuation HFA aerosol inhaler 2 puff inhalation Q6H PRN (Reason: shortness of breath or wheezing) Qty: 6.7 RF: 0 Continued aspirin [Adult Aspirin Regimen] 81 mg tablet,delayed release (DR/EC) 81 mg PO DAILY RF: 0 cholecalciferol (vitamin D3) 25 mcg (1,000 unit) capsule 25 mcg PO DAILY RF: 0 nitroglycerin [Nitrostat] 0.4 mg tablet, sublingual 0.4 mg SUBLINGUAL Q5M PRN (Reason: chest pain) Qty: 30 RF: 0 cyanocobalamin (vitamin B-12) 1,000 mcg capsule 1,000 mcg PO DAILY RF: 0 metformin 500 mg tablet 500 mg PO BID Qty: 180 RF: 1 glimepiride 2 mg tablet 2 mg PO DAILY Qty: 90 RF: 1 ferrous sulfate 325 mg (65 mg iron) tablet 325 mg PO BID Qty: 60 RF: 0 metoprolol tartrate 25 mg tablet 25 mg PO BID Qty: 180 RF: 1 Discontinued doxycycline hyclate 100 mg tablet 100 mg PO BID Qty: 20 RF: 0 dexamethasone 6 mg tablet 6 mg PO DAILY Qty: 7 RF: 0 Referrals / Follow Up: Donna Will MD [Primary Care Provider] - In 1 Week More Pulido NP, SPRINKLER REPAIR TECHNICIAN-C [Nurse Practitioner] - In 1 Week Disposition Disposition (needs filled in before D/C Order can be placed): Home, Self Care Documented by User: Dr. Marco Cruz DO 04/11/21 13:14 Providers Date of Admission: 04/08/21 Reason For Visit: ACUTE METABOLIC ENCEPHALOPATHY Medications at Discharge Home Medications aspirin 81 mg tablet,delayed release 81 mg PO DAILY 09/28/19 cholecalciferol (vitamin D3) 25 mcg (1,000 unit) capsule 25 mcg PO DAILY 07/17/20 ferrous sulfate 325 mg (65 mg iron) tablet 325 mg PO BID #60 tab 07/18/20 metoprolol tartrate 25 mg tablet 25 mg PO BID #180 tab 09/12/20 nitroglycerin 0.4 mg sublingual tablet 0.4 mg SUBLINGUAL Q5M PRN #30 tab 09/25/20 cyanocobalamin (vitamin B-12) 1,000 mcg capsule 1,000 mcg PO DAILY 01/29/21 glimepiride 2 mg tablet 2 mg PO DAILY #90 tab 01/29/21 metformin 500 mg tablet 500 mg PO BID #180 tab 01/29/21 albuterol sulfate 2 puff INHALATION Q6H PRN #6.7 g 04/11/21 prednisone See Taper PO DAILY #30 tab 04/11/21 Hospital Course Operations None Procedures None Summary of Care Provided Minutes Spent on Discharge: 32 Hospital Course: Is a 70-year-old male who has had COVID-19. Was discharged with oxygen but was noted to be lethargic at home. Patient presented to and was requiring up to 9 L of oxygen when he presented. Patient was discharged with 3 L. Concern was for secondary infection patient was started on broad-spectrum antibiotics. He was found to have rhinovirus. Patient did have abnormal CAT scan with this likely changes due to his COVID-19. Patient overall did well. Today, his was very concerned that he may be getting worse. Reviewed with them both that he did have a fever at around 4:00 this morning but the patient has been doing well with therapy. Informed that his cultures were all negative with the exception of the rhinovirus. Fever is not uncommon after patient is convalescing from an infection. She is concerned about him going home and following but is reviewed with him and the patient also volunteered that he did well with therapy the day before. Patient be discharged home in stable condition. It was brought to my attention that the patient had previously declined having a condenser at home but would have the oxygen tanks. Unclear the reasoning for that but he will need to have oxygen condenser as well as a tanks for when he travels. Physical Exam Const alert Resp normal respiratory effort, no retractions, no use of accessory muscles and clear to auscultation bilaterally Cardio regular rate, regular rhythm, S1 normal heart sound and S2 normal heart sound ABG / Lab / Microbiology Data Result Diagrams: 04/11/21 03:45 04/11/21 03:45 Discharge Plan Admission Admit Date/Time: 04/08/21 16:39 Primary Reason for Your Visit: COPD, rhinovirus Attending Provider: Marco Cruz Primary Care Provider: Donna Will Consulting Providers: Alexi Roblero Discharge Orders/Prescriptions Prescriptions: New prednisone 10 mg tablet See Taper mg PO DAILY Qty: 30 RF: 0 albuterol sulfate 90 mcg/actuation HFA aerosol inhaler 2 puff inhalation Q6H PRN (Reason: shortness of breath or wheezing) Qty: 6.7 RF: 0 Continued aspirin [Adult Aspirin Regimen] 81 mg tablet,delayed release (DR/EC) 81 mg PO DAILY RF: 0 cholecalciferol (vitamin D3) 25 mcg (1,000 unit) capsule 25 mcg PO DAILY RF: 0 nitroglycerin [Nitrostat] 0.4 mg tablet, sublingual 0.4 mg SUBLINGUAL Q5M PRN (Reason: chest pain) Qty: 30 RF: 0 cyanocobalamin (vitamin B-12) 1,000 mcg capsule 1,000 mcg PO DAILY RF: 0 metformin 500 mg tablet 500 mg PO BID Qty: 180 RF: 1 glimepiride 2 mg tablet 2 mg PO DAILY Qty: 90 RF: 1 ferrous sulfate 325 mg (65 mg iron) tablet 325 mg PO BID Qty: 60 RF: 0 metoprolol tartrate 25 mg tablet 25 mg PO BID Qty: 180 RF: 1 Discontinued doxycycline hyclate 100 mg tablet 100 mg PO BID Qty: 20 RF: 0 dexamethasone 6 mg tablet 6 mg PO DAILY Qty: 7 RF: 0 Referrals / Follow Up: Donna Will MD [Primary Care Provider] - In 1 Week More Pulido NP, SPRINKLER REPAIR TECHNICIAN-C [Nurse Practitioner] - In 1 Week Disposition Disposition (needs filled in before D/C Order can be placed): Home, Self Care Charges/Coding Visit Charges Inpatient E&M: 82350 Disch Hosp
[2021-04-11] MEDS: Aspirin E.C. 81 MG Tablet PO (10:28)
[2021-04-11] MEDS: Metoprolol Tartrate 25 MG Tablet PO (10:28)
[2021-04-11] MEDS: Cyanocobalamin 500 MCG Tablet 1000 MCG PO (10:28)
[2021-04-11] MEDS: Cholecalciferol (VIT D3) 25 MCG TABLET (1,000 UNITS) PO (10:28)
[2021-04-11] MEDS: Enoxaparin 40 MG/0.4 ML Syringe SC (10:29)
[2021-04-11 12:10] LABS: Bedside Glucose 162 mg/dL (70-110)
--- NOTE | 2021-04-11 12:23 | CASEMGMT ---
Addendum entered by Brittani Fink 04/11/21 15:03: D/C summary faxed to [facility]. Wendy RASCON CM Addendum entered by Brittani Fink 04/11/21 14:58: Per Shanna CONSULTANT, pt's is still fine taking pt home with [facility] and she states that pt 'just sits in the chair anyway.' Wendy RASCON CM Addendum entered by Brittani Fink 04/11/21 14:29: Per therapy/RN, pt now qualifies for 4L w/ exertion and 3L at rest. Order re-faxed to [facility]. Wendy RASCON CM Original Note: Pt qualifies for 3L continuous home oxygen at and new order faxed to [facility]. Per , pt does have concentrator set up at home but [facility] had stated differently. Call back to Lucía at [facility] to update on script and to clarify regarding concentrator(she states she will re-check on this and have rental car ferry driver go out once pt home). Pt/ would like [facility] PT/OT set up at discharge and would like [facility] as they are preferred provider. [facility] order for PT/OT placed and faxed to [facility]. Call to Janae at [facility] to notify of referral and she states they can accept with SOC on 04/12 or 04/13/21. Wendy RASCON CM
== END 2021-04-11 15:18 | disposition home health service (06) | DRG 193 ==
LOC: ED 16:44 → PCU 16:48
PROVIDERS: Internal Medicine; Nurse Practitioner Family; Admitting Provider Student in an Organized Health Care Education/Training Program; Emergency Provider Emergency Medicine; PCP Internal Medicine
DX: J15.9 Unspecified bacterial pneumonia (principal); J96.21 Acute and chronic respiratory failure with hypoxia; G93.41 Metabolic encephalopathy; E43 Unspecified severe protein-calorie malnutrition; D84.9 Immunodeficiency, unspecified; E87.2 Acidosis; J44.0 Chronic obstructive pulmonary disease with (acute) lower respiratory infection; C85.90 Non-Hodgkin lymphoma, unspecified, unspecified site; J44.1 Chronic obstructive pulmonary disease with (acute) exacerbation; E11.9 Type 2 diabetes mellitus without complications; M06.9 Rheumatoid arthritis, unspecified; D50.9 Iron deficiency anemia, unspecified; I25.10 Atherosclerotic heart disease of native coronary artery without angina pectoris; I10 Essential (primary) hypertension; E78.5 Hyperlipidemia, unspecified; F17.210 Nicotine dependence, cigarettes, uncomplicated; B97.89 Other viral agents as the cause of diseases classified elsewhere; Z79.84 Long term (current) use of oral hypoglycemic drugs; Z79.82 Long term (current) use of aspirin; Z80.0 Family history of malignant neoplasm of digestive organs; Z80.1 Family history of malignant neoplasm of trachea, bronchus and lung; Z86.16 Personal history of COVID-19; Z66 Do not resuscitate; Z95.5 Presence of coronary angioplasty implant and graft
CPT/HCPCS: 36415; 36600; 71045; 71046; 71275; 80048; 80053; 81001; 82803; 82947; 82962; 83605; 83735; 84484; 85025; 85379; 87040; 87070; 87205; 87633; 93005; 94640; 97110; 97116; 97162; 97165; 97530; 97802; 99251; 99285; 99406; J7030; Q9967; A4216; G0463; J1940

== ENCOUNTER 2021-04-21 14:24 | Inpatient (IN) | payer MEDICARE, SELFPAY ==
[2021-04-21] VITALS (11 sets, daily range): BP systolic 107–129; BP diastolic 60–86; PULSE 70–84; RESP 15–28; TEMP 36.2–37.2; O2SAT 90–95; BMI 28.7; BMI 27.7
--- NOTE | 2021-04-21 14:42 | EKG12_ITS ---
Test Reason : HYPERGLYCEMIA Blood Pressure : / mmHG Vent. Rate : 081 BPM Atrial Rate : 081 BPM P-R Int : 124 ms QRS Dur : 090 ms QT Int : 366 ms P-R-T Axes : 033 030 059 degrees QTc Int : 425 ms Sinus rhythm with Premature atrial complexes Otherwise normal ECG Confirmed by IAM TEIXEIRA, HAVEN ([id number]), deputy editor in chief AVINASH MARTINEZ ([id number]) on 04/23/2021 12:24:08 PM Referred By: CONNOR Confirmed By:HAVEN VITALE MD
--- NOTE | 2021-04-21 14:43 | EX.ED.DYSGE1 ---
HPI History of Present Illness Chief Complaint: Hyperglycemia Informant: patient Onset/Context/Timing Onset: Today Context: Gradual Onset Timing: Continuous Current Severity: Mild Maximum Severity: Mild Narrative Narrative: 70-year-old male reportedly lives alone at home. History of CAD with cardiac stent. COPD. Reportedly was admitted to the hospital for Covid in February. Patient states he feels weak all over for the last week. He denies nausea vomiting or diarrhea. He denies fever or chills. He denies chest pain or shortness of breath. Prior similar symptoms: Yes Recent Illness/Hospitalization: Yes PFSH [facility] Medical History Allergic rhinitis Arthritis Asthma Atherosclerosis of coronary artery of [place] heart without angina pectoris Bronchitis Cancer Chronic bronchitis Colon polyp COPD (chronic obstructive pulmonary disease) COVID-19 COVID-19 in immunocompromised patient Diabetes Gastritis History of basal cell carcinoma History of diabetes mellitus, type II History of non-Hodgkin's lymphoma History of pilonidal cyst Hyperlipidemia Iron deficiency anemia Iron deficiency anemia Lab test negative for COVID-19 virus Nicotine dependence, cigarettes, uncomplicated Non-Hodgkin lymphoma Obesity Pneumonia Pneumonia due to COVID-19 virus Positive colorectal cancer screening using Cologuard test RA (rheumatoid arthritis) Tobacco use URI (upper respiratory infection) 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 complications Home Medications aspirin 81 mg tablet,delayed release 81 mg PO DAILY 09/28/19 [History Last Taken Unknown] cholecalciferol (vitamin D3) 25 mcg (1,000 unit) capsule 25 mcg PO DAILY 07/17/20 [History Last Taken Unknown] ferrous sulfate 325 mg (65 mg iron) tablet 325 mg PO BID #60 tab 07/18/20 [Rx Last Taken Unknown] metoprolol tartrate 25 mg tablet 25 mg PO BID #180 tab 09/12/20 [Rx Last Taken Unknown] nitroglycerin 0.4 mg sublingual tablet 0.4 mg SUBLINGUAL Q5M PRN #30 tab 09/25/20 [Rx Last Taken Unknown] cyanocobalamin (vitamin B-12) 1,000 mcg capsule 1,000 mcg PO DAILY 01/29/21 [History Last Taken Unknown] glimepiride 2 mg tablet 2 mg PO DAILY #90 tab 01/29/21 [Rx Last Taken Unknown] metformin 500 mg tablet 500 mg PO BID #180 tab 01/29/21 [Rx Last Taken Unknown] albuterol sulfate 2 puff INHALATION Q6H PRN #6.7 g 04/11/21 [Rx Last Taken Unknown] prednisone See Taper PO DAILY #30 tab 04/11/21 [Rx Last Taken Unknown] atorvastatin 40 mg PO QHS 04/21/21 [History Last Taken Unknown] Allergy/AdvReac Type Severity Reaction Status Date / Time famotidine [From Pepcid] AdvReac Intermediate Diarrhea Verified 04/21/21 14:29 levofloxacin [From Levaquin] AdvReac Intermediate dizziness Verified 04/21/21 14:29 Family History Father Arthritis Bleeding disorder Hypertension Kidney disease Cancer Skin Anemia blood clots Emphysema lung Mother Colon cancer Cancer Lung Cancer Diabetes Brother Thyroid disorder Surgical History History of coronary artery stent placement (~10/22/13) History of excision of pilonidal cyst History of thymectomy Hx of lymph node excision Social History household members: spouse Smoking Status: Former smoker second hand exposure: Yes quit status: considering quitting alcohol intake: current alcohol intake frequency: holidays/special occasions only substance use type: does not use caffeine: Yes Type: coffee Number of servings: 3 what type of physical activity do you participate in: none frequency: does not exercise seatbelt use: always ROS ROS ED ROS Narrative Generalized weakness. Review of Systems ROS Unobtainable: Denies due to encephalopathy Constitutional Constitutional ED: Denies fever(s) Eyes Eyes: Denies change in vision ENT ENT ED: Denies ear pain Cardiovascular Cardiovascular: Denies chest pain Respiratory/Chest Respiratory/Chest: Denies dyspnea Gastrointestinal Gastrointestinal: Denies abdominal pain, diarrhea, nausea or vomiting Genitourinary Genitourinary ED: Denies dysuria Musculoskeletal Musculoskeletal: Denies myalgias Integumentary Denies rash Neurologic Neurologic: Denies headache(s) Psychiatric Psychiatric: Denies depression Endocrine Endocrinology: Denies polyuria Allergic/Immunologic Allergic/Immunologic ED: Denies urticaria EXAM Physical Exam Narrative Exam Narrative: 70-year-old male no acute distress. Vital signs stable afebrile. On 2 L oxygen his pulse ox is 93% no hypoxia on oxygen. H EENT exam unremarkable atraumatic dry mucous memories. Neck nontender no lymphadenopathy. Lungs clear to auscultation. Heart regular rate and rhythm rate about 80 no murmur. Chest were nontender. Abdomen soft nontender. Normal bowel sounds. Nondistended. No peritoneal signs. Patient moving all 4 extremities. Nontender. No edema. Neurologically is awake. Is alert answers questions and follows commands. He is moving all 4 extremities. Const Vital Signs: 04/21/21 14:25 04/21/21 14:27 04/21/21 15:11 Temperature 98.4 F 98.4 F Temperature Source Oral Oral Pulse Rate 83 84 Respiratory Rate 28 H 20 H Respiratory Effort Normal Respiratory Pattern Normal Blood Pressure 107/86 H 107/86 H Blood Pressure Mean 93 93 Pulse Ox 93 92 Oxygen Delivery Method Nasal Cannula Nasal Cannula Oxygen Flow Rate (L/min) 2 2 04/21/21 15:25 04/21/21 16:00 04/21/21 16:40 Temperature 98.9 F Temperature Source Temporal Pulse Rate 70 72 76 Respiratory Rate 23 H 15 18 Respiratory Effort Respiratory Pattern Blood Pressure 122/63 H 118/60 116/60 Blood Pressure Mean 82 79 78 Pulse Ox 95 94 95 Oxygen Delivery Method Nasal Cannula Nasal Cannula Nasal Cannula Oxygen Flow Rate (L/min) 04/21/21 17:00 04/21/21 18:00 04/21/21 19:00 Temperature 97.1 F L 97.8 F Temperature Source Temporal Temporal Pulse Rate 72 74 80 Respiratory Rate 20 H 26 H 19 H Respiratory Effort Respiratory Pattern Blood Pressure 122/64 H 119/65 126/64 H Blood Pressure Mean 83 83 84 Pulse Ox 92 93 90 Oxygen Delivery Method Nasal Cannula Nasal Cannula Room Air Oxygen Flow Rate (L/min) Positive well nourished and well developed; Negative for obese, cachectic, contractures or unkempt General Appearance ED: well developed and NAD; Negative for unkempt, cachectic, contractures, cyanotic or diaphoretic Nutritional Appearance: Negative for cachectic or obese HEENT Reports dry mucous membranes Negative for trauma or tenderness Mouth ED: Yes dry mucous membranes Mouth: dry mucous membranes Eyes PERRL and EOMs intact bilaterally Neck no lymphadenopathy, supple and no JVD General: Negative for tenderness Chest Wall inspection of chest normal and palpation of chest normal Resp normal respiratory effort and clear to auscultation bilaterally Effort and Inspection: Negative for pain with movement Auscultation: Negative for rales, rhonchi or wheezes Cardio regular rate, regular rhythm, S1 normal heart sound, S2 normal heart sound and no murmurs GI normal to inspection, nondistended, normoactive bowel sounds, non-tender, non-distended and no masses Auscultation: normoactive bowel sounds Palpation: soft; Negative for tender, guarding or rebound tenderness present Back/Spine no CVA tenderness General Back: Negative for CVA tenderness Cervical Spine: Negative for cervical spine tenderness Thoracic Spine / Upper Back: Negative for thoracic spinal tenderness Extremity normal to inspection General Extremety ED: Negative for edema or tenderness General Extremity: Negative for edema Neuro oriented x3 Sensorium / Orientation: alert; Negative for orientation impaired, lethargic or stuporous Motor Exam: strength 5/5 throughout Psych mental status grossly normal Appearance: Negative for unkempt Mood & Affect: Negative for depressed or tearful Skin no rashes or lesions noted and no wounds MDM MDM MDM Narrative Medical decision making narrative: 70-year-old male complain generalized weakness. Exam benign. Screening labs are being obtained. Repeat exam patient is doing well at 6:45 PM. He has received a liter of fluid. Clinically looks improved. Hospitalist will admit the patient overnight for further IV fluids and monitoring. Patient was recently admitted for Covid. Currently is on a prednisone taper which is also a significant cause for his increased blood sugar. Lab Data Attestation: I reviewed the patient's lab results. Lab results narrative: CBC shows a white count of 10. H&H 10 and 30. Electrolytes sodium 132. Gap of 4 BUN of 42 creatinine 0.98 consistent with dehydration. Glucose is elevated 467. Troponin normal at 13. UA is negative no whites or red cells. No bacteria and no nitrates Labs: Laboratory Results - last 24 hr 04/21/21 04/21/21 04/21/21 15:00 15:00 16:56 WBC 10.2 RBC 4.02 L Hgb 10.4 L Hct 30.4 L MCV 75.6 L MCH 25.9 L MCHC 34.2 RDW Std Deviation 42.5 RDW Coeff of [place] 15.7 H Plt Count 267 MPV 10.9 Immature Gran % (Auto) 0.700 Neut % (Auto) 91.1 H Lymph % (Auto) 3.8 L [place] % (Auto) 4.2 Eos % (Auto) 0.1 Baso % (Auto) 0.1 Absolute Neuts (auto) 9.2 H Absolute Lymphs (auto) 0.39 L Nucleated RBC % 0 Differential Comment Platelet Estimate ADEQUATE RBC Morphology NORM C+C Sodium 132 L Potassium 5.1 Chloride 102 Carbon Dioxide 26.0 Anion Gap 4 L BUN 42 H Creatinine 0.98 Estim Creat Clear Calc 71.39 Est GFR (MDRD) Af Amer 97 Est GFR (MDRD) Non-Af 80 BUN/Creatinine Ratio 42.9 H Glucose 467 H* Calcium 9.1 Troponin I High Sens 13 Urine Color Yellow Urine Clarity Sl. Cloudy Urine pH 6.0 Ur Specific [place] 1.020 Urine Protein 30 H Urine Glucose (UA) 1000 H Urine Ketones 5 H Urine Occult Blood 10 H Urine Nitrite Negative Urine Bilirubin Negative Urine Urobilinogen Normal Ur Leukocyte Esterase 25 H Urine RBC 0 SEEN Urine WBC 0-5 SEEN Ur Squamous Epith Cells 0-5 SEEN Urine Bacteria 0 SEEN Urine Mucus 0 SEEN Urine Yeast 3+ POC Glucose 04/21/21 19:06 WBC RBC Hgb Hct MCV MCH MCHC RDW Std Deviation RDW Coeff of [place] Plt Count MPV Immature Gran % (Auto) Neut % (Auto) Lymph % (Auto) [place] % (Auto) Eos % (Auto) Baso % (Auto) Absolute Neuts (auto) Absolute Lymphs (auto) Nucleated RBC % Differential Comment Platelet Estimate RBC Morphology Sodium Potassium Chloride Carbon Dioxide Anion Gap BUN Creatinine Estim Creat Clear Calc Est GFR (MDRD) Af Amer Est GFR (MDRD) Non-Af BUN/Creatinine Ratio Glucose Calcium Troponin I High Sens Urine Color Urine Clarity Urine pH Ur Specific [place] Urine Protein Urine Glucose (UA) Urine Ketones Urine Occult Blood Urine Nitrite Urine Bilirubin Urine Urobilinogen Ur Leukocyte Esterase Urine RBC Urine WBC Ur Squamous Epith Cells Urine Bacteria Urine Mucus Urine Yeast POC Glucose 369 H Radiography Chest X-Ray - ED: 1 View, Read by ED Physician, Heart, Lungs, Mediastinum, Bony Structures, No Acute Disease and Chronic Changes Diagnostic Testing: Clinical Impression(s) from Imaging Studies Chest X-Ray 04/21/21 15:13 IMPRESSION: No active disease. Electronically Signed: Boston Myers MD at 15:44 EST , Patient also had a shows no acute process. Portable, single view interpreted by myself and the radiologist. Rhythm Strip Rhythm Strip: Sinus Rhythm Rate: 81 Ectopy: PAC(s) EKG Initial EKG: Attestation: I personally reviewed and interpreted this EKG as follows: Interpretation: Sinus Rhythm and No Acute Injury Pattern Comments: Normal sinus rhythm rate of 81 with PACs. No acute signs of [place] no ischemia. Discharge Plan Triage Chief Complaint: Hyperglycemia ED Provider: Dwain Nowak Dx/Rx/DC Orders Clinical Impression: Weakness, Acute dehydration, Hyperglycemia due to diabetes mellitus Prescriptions: No Action aspirin [Adult Aspirin Regimen] 81 mg tablet,delayed release (DR/EC) 81 mg PO DAILY RF: 0 cholecalciferol (vitamin D3) 25 mcg (1,000 unit) capsule 25 mcg PO DAILY RF: 0 nitroglycerin [Nitrostat] 0.4 mg tablet, sublingual 0.4 mg SUBLINGUAL Q5M PRN (Reason: chest pain) Qty: 30 RF: 0 cyanocobalamin (vitamin B-12) 1,000 mcg capsule 1,000 mcg PO DAILY RF: 0 metformin 500 mg tablet 500 mg PO BID Qty: 180 RF: 1 glimepiride 2 mg tablet 2 mg PO DAILY Qty: 90 RF: 1 prednisone 10 mg tablet See Taper mg PO DAILY Qty: 30 RF: 0 albuterol sulfate 90 mcg/actuation HFA aerosol inhaler 2 puff inhalation Q6H PRN (Reason: shortness of breath or wheezing) Qty: 6.7 RF: 0 atorvastatin 40 mg tablet 40 mg PO QHS RF: 0 ferrous sulfate 325 mg (65 mg iron) tablet 325 mg PO BID Qty: 60 RF: 0 metoprolol tartrate 25 mg tablet 25 mg PO BID Qty: 180 RF: 1 Primary Care Provider: Donna Will Referrals: Donna Will MD [Primary Care Provider] - Disposition Disposition: Acute Care Hospital [facility]
[2021-04-21] MEDS: 0.9% Normal Saline 1,000 ML 1000 ML IV (14:59)
[2021-04-21 15:11] LABS: Absolute Lymphocyte Count 0.39 X10^3/uL (0.83-4.51); Absolute Neutrophil Count 9.2 X10^3/uL (2.0-7.7); Basophil# 0.01 X10^3/uL; Basophil% 0.1 % (0-1); Eosinophil# 0.01 X10^3/uL; Eosinophils% 0.1 % (0-5); Hematocrit 30.4 % (40-54); Hemoglobin 10.4 g/dL (13.0-16.5); Lymphocyte # 0.39 X10^3/ul (0.83-4.51); Lymphocyte % 3.8 % (19-41); Mean Corp Hgb Conc 34.2 g/dL (32-36); Mean Corpuscular Hgb 25.9 pg (27.0-32.0); Mean Corpuscular Volume 75.6 fL (80-94); Mean Platelet Vol. 10.9 fl (6.2-12.0); Monocyte# 0.43 X10^3/uL; Monocyte% 4.2 % (0-10); NRBC Flagged by Analyzer 0 % (0-5); Neutrophil # 9.24 X10^3/uL (2.7-7.7); Neutrophil % 91.1 % (47-70); POSITIVE DIFFERENTIAL YES; Platelet Count 267 K/mm3 (150-450); RBC Distribution Width CV 15.7 % (11.6-14.6); RBC Distribution Width SD 42.5 fl (35.1-43.9); Red Blood Count 4.02 M/mm3 (4.6-6.2); White Blood Count 10.2 K/mm3 (4.4-11.0)
--- NOTE | 2021-04-21 15:13 | RAD_ITS ---
STUDY: X-RAY CHEST REASON FOR EXAM: Male, 70 years old. weakness TECHNIQUE: Single AP portable view of the chest. COMPARISON: 04/08/2021 FINDINGS: Status post median sternotomy. The lungs are clear and expanded. There is no demonstrated pleural abnormality. Normal size heart. Normal mediastinum and sho. Normal visualized pulmonary arteries. Normal visualized aortic arch and descending thoracic aorta. Normal visualized thoracic spine. Normal visualized ribs, clavicles, and shoulders. There is no demonstrated abnormality of the visualized soft tissue structures of the upper abdomen. RAD/Chest 1 View (Portable) IMPRESSION: No active disease. Electronically Signed: Boston Myers MD at 15:44 EST ,
[2021-04-21 15:15] LABS: Differential Indicated SCAN CRITERIA MET
[2021-04-21 15:36] LABS: Anion Gap 4 (5-15); BUN 42 mg/dL (7-18); BUN/Creat Ratio 42.9 RATIO (10-20); Calcium,Total 9.1 mg/dL (8.5-10.1); Chloride 102 mmol/L (98-107); Creatinine, Serum 0.98 mg/dL (0.70-1.30); EST Glomerular Filtration Rate 80 mL/min (>60); Est Glom Filt Rate - Afr Amer 97 mL/min (>60); Estimated Creatinine Clearance 71.39 ml/min; Glucose 467 mg/dL (74-106); Potassium 5.1 mmol/L (3.5-5.1); Sodium Level 132 mmol/L (136-145); Troponin-I HS 13 pg/mL (3.0-78.0)
[2021-04-21 16:17] LABS: Platelet Estimate ADEQUATE (ADEQ); Red Cell Morphology NORM C+C NORMAL (NORM C&C)
[2021-04-21 16:59] LABS: Bacteria 0 SEEN /hpf (None Seen); Mucous, Urine 0 SEEN /hpf (<or=2+); Red Blood Cells-Urine 0 SEEN /hpf (0-5)
[2021-04-21 17:02] LABS: Color, Urine Yellow (Yellow); Glucose, Dipstick 1000 mg/dl (Normal); Ketone-Dipstick 5 mg/dl (Negative); Leukocyte Esterase-Dipstick 25 /ul (Negative); Nitrite-Dipstick Negative (Negative); Occult Blood-Urine 10 /ul (Negative); Protein-Dipstick 30 mg/dl (Negative); Urine Bilirubin Dipstick Negative (Negative); Urine Clarity Sl. Cloudy (Clear); Urine Urobilinogen Normal (Normal)
[2021-04-21 17:14] LABS: Squamous Epithelial Cells - UA 0-5 SEEN /hpf (0-5); White Blood Cells 0-5 SEEN /hpf (0-5)
[2021-04-21 17:15] LABS: Yeast-Urine 3+ /hpf (None Seen)
--- NOTE | 2021-04-21 19:05 | HP.PCM.HOS_ITS ---
HPI - General General Date of Admission: 04/21/21 Date of Service: 04/21/21 Chief Complaint: FTT, Adult, weak, difficulty caring for self at home HPI Narrative The patient is a 70 y/o M w/ PMHx: Tobacco use, COPD/Asthma/Chronic bronchitis, , HTN, HLD, Hx NH Lymphoma, Diabetes mellitus type II, Recent COVID-19 Illness, Rheumatoid arthritis, Chronic anemia who was recently discharged on 04/11/21 following admission for COPD exacerbation secondary to Acute rhinoviral illness with steroids upon discharge who now re-presents to the [facility] ED on 04/21/21 now for the 5th ED evaluation since February 2021 with fatigue, weakness, reporting ongoing difficulty with intake secondary to taste disturbances from his prior COVID illness but continued refusal for SNF placement reporting ongoing home therapies and following outpatient with his physicians. Upon evaluation of patient his spouse had already left the ED. Patient reports that he would like IVFs and believes this will help him feel improved. Discussed the importance of appropriate oral intake even with his altered taste and again encouraged consideration short stay in transitional care of SNF given his evidence failure to thrive. He denies any worsened dyspnea, increased cough or shortness of breath. He denies any worsening sensation of increased weakness or debility. Work-up in the ED included T 97.1, heart rate 74, BP 119/65, respiratory rate 20, 92 to 95% on room air, CBC with WC 10.2, hemoglobin 10.4, platelet 267 with left shift and lymphopenia on recent steroid administration, BMP with sodium 132, BUN/creatinine 42/0.98, glucose 467, troponin XIII, UDS with elevated specific [place] 1.020, glucose 1000, ketones 5 but anion gap normal, no evidence of urinary tract infection, chest x-ray with no acute cardiopulmonary findings. In the ED patient administered 1L NS bolus. [facility] Medical History Allergic rhinitis Arthritis Asthma Atherosclerosis of coronary artery of [place] heart without angina pectoris Bronchitis Cancer Chronic bronchitis Colon polyp COPD (chronic obstructive pulmonary disease) COVID-19 COVID-19 in immunocompromised patient Diabetes Gastritis History of basal cell carcinoma History of diabetes mellitus, type II History of non-Hodgkin's lymphoma History of pilonidal cyst Hyperlipidemia Iron deficiency anemia Iron deficiency anemia Lab test negative for COVID-19 virus Nicotine dependence, cigarettes, uncomplicated Non-Hodgkin lymphoma Obesity Pneumonia Pneumonia due to COVID-19 virus Positive colorectal cancer screening using Cologuard test RA (rheumatoid arthritis) Tobacco use URI (upper respiratory infection) 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 complications Home Medications aspirin 81 mg tablet,delayed release 81 mg PO DAILY 09/28/19 [History Last Taken Unknown] cholecalciferol (vitamin D3) 25 mcg (1,000 unit) capsule 25 mcg PO DAILY 07/17/20 [History Last Taken Unknown] ferrous sulfate 325 mg (65 mg iron) tablet 325 mg PO BID #60 tab 07/18/20 [Rx Last Taken Unknown] metoprolol tartrate 25 mg tablet 25 mg PO BID #180 tab 09/12/20 [Rx Last Taken Unknown] nitroglycerin 0.4 mg sublingual tablet 0.4 mg SUBLINGUAL Q5M PRN #30 tab 09/25/20 [Rx Last Taken Unknown] cyanocobalamin (vitamin B-12) 1,000 mcg capsule 1,000 mcg PO DAILY 01/29/21 [History Last Taken Unknown] glimepiride 2 mg tablet 2 mg PO DAILY #90 tab 01/29/21 [Rx Last Taken Unknown] metformin 500 mg tablet 500 mg PO BID #180 tab 01/29/21 [Rx Last Taken Unknown] albuterol sulfate 2 puff INHALATION Q6H PRN #6.7 g 04/11/21 [Rx Last Taken Unknown] prednisone See Taper PO DAILY #30 tab 04/11/21 [Rx Last Taken Unknown] atorvastatin 40 mg PO QHS 04/21/21 [History Last Taken Unknown] Allergy/AdvReac Type Severity Reaction Status Date / Time famotidine [From Pepcid] AdvReac Intermediate Diarrhea Verified 04/21/21 14:29 levofloxacin [From Levaquin] AdvReac Intermediate dizziness Verified 04/21/21 14:29 Family History Father Arthritis Bleeding disorder Hypertension Kidney disease Cancer Skin Anemia blood clots Emphysema lung Mother Colon cancer Cancer Lung Cancer Diabetes Brother Thyroid disorder Surgical History History of coronary artery stent placement (~10/22/13) History of excision of pilonidal cyst History of thymectomy Hx of lymph node excision Social History household members: spouse Smoking Status: Former smoker second hand exposure: Yes quit status: considering quitting alcohol intake: current alcohol intake frequency: holidays/special occasions only substance use type: does not use caffeine: Yes Type: coffee Number of servings: 3 what type of physical activity do you participate in: none frequency: does not exercise seatbelt use: always ROS ROS Narrative Admission Review of Systems: CONSTITUTIONAL: No weight loss, fever, chills, + weakness or fatigue. HEENT: Eyes: No visual loss, blurred vision, double vision or yellow sclerae. Ears, Nose, Throat: No hearing loss, sneezing, congestion, runny nose or sore throat. SKIN: No rash or itching, lesions, wounds. CARDIOVASCULAR: No chest pain, chest pressure or chest discomfort, palpitations, edema, orthopnea, syncopal events. RESPIRATORY: No shortness of breath, cough or sputum, wheezing, hemoptysis. GASTROINTESTINAL: + anorexia, No nausea, vomiting or diarrhea, abdominal pain, melena, BRBPR. GENITOURINARY: No dysuria, frequency, urgency or retention. NEUROLOGICAL: No headache, dizziness, syncope, paralysis, ataxia, numbness or tingling in the extremities, focal weakness, change in bowel or bladder control, seizure. MUSCULOSKELETAL: + muscle, back pain, joint pain or stiffness. HEMATOLOGIC: + anemia, bleeding or bruising. LYMPHATICS: No enlarged nodes. No history of splenectomy. PSYCHIATRIC: No history of depression or anxiety. ENDOCRINOLOGIC: No reports of sweating, cold or heat intolerance. No polyuria or polydipsia. ALLERGIES: + history of asthma, hives, eczema or rhinitis. Vital Signs Vital Signs Vital Signs: 04/21/21 14:25 04/21/21 14:27 04/21/21 15:11 Temperature 98.4 F 98.4 F Temperature Source Oral Oral Pulse Rate 83 84 Respiratory Rate 28 H 20 H Respiratory Effort Normal Respiratory Pattern Normal Blood Pressure 107/86 H 107/86 H Blood Pressure Mean 93 93 Pulse Ox 93 92 Oxygen Delivery Method Nasal Cannula Nasal Cannula Oxygen Flow Rate (L/min) 2 2 04/21/21 15:25 04/21/21 16:00 04/21/21 16:40 Temperature 98.9 F Temperature Source Temporal Pulse Rate 70 72 76 Respiratory Rate 23 H 15 18 Respiratory Effort Respiratory Pattern Blood Pressure 122/63 H 118/60 116/60 Blood Pressure Mean 82 79 78 Pulse Ox 95 94 95 Oxygen Delivery Method Nasal Cannula Nasal Cannula Nasal Cannula Oxygen Flow Rate (L/min) 04/21/21 17:00 04/21/21 18:00 Temperature 97.1 F L Temperature Source Temporal Pulse Rate 72 74 Respiratory Rate 20 H 26 H Respiratory Effort Respiratory Pattern Blood Pressure 122/64 H 119/65 Blood Pressure Mean 83 83 Pulse Ox 92 93 Oxygen Delivery Method Nasal Cannula Nasal Cannula Oxygen Flow Rate (L/min) Weight Weight: 200 lb 6.403 oz Body Mass Index (BMI) 28.7 Physical Exam Narrative Physical Examination: General: Awake, alert, oriented x [address], person recent events, remains cooperative, seated upright in the ED bed, fatigued otherwise no acute distress. Skin: Normal color, normal turgor, no icterus, no cyanosis. HEENT: AT/NC, EOMI, PERRLA, mildly dry MM, actively drinking water, no carotid bruits or JVD noted. Lungs: Diminished, greater bases, appropriate effort,, no rales, ronchi or wheezing. Heart: Currently regular rate and rhythm; no gallop, rub audible. Abdomen: Soft, NTTP, ND, mildly hyperactive BS, no HSM. Extremities: No cyanosis, clubbing, or edema. Neurological: Patient awake, alert, oriented as noted, cognitive function intact; pupils equally reactive to light and accommodation, cranial nerves II- XII grossly normal, moving all 4 extremities, no focal deficits, strength moderately global decreased Psychiatric: Affect appears flat, no acute evidence of depressive or anxiety feelings. Results Lab / Micro Data Result Diagrams: 04/21/21 15:00 04/21/21 15:00 Labs: Laboratory Results - last 24 hr 04/21/21 15:00: WBC 10.2, RBC 4.02 L, Hgb 10.4 L, Hct 30.4 L, MCV 75.6 L, MCH 25.9 L, MCHC 34.2, RDW Std Deviation 42.5, RDW Coeff of [place] 15.7 H, Plt Count 267, MPV 10.9, Immature Gran % (Auto) 0.700, Neut % (Auto) 91.1 H, Lymph % (Auto) 3.8 L, [place] % (Auto) 4.2, Eos % (Auto) 0.1, Baso % (Auto) 0.1, Absolute Neuts (auto) 9.2 H, Absolute Lymphs (auto) 0.39 L, Nucleated RBC % 0, Di fferential Comment , Platelet Estimate ADEQUATE, RBC Morphology NORM C+C 04/21/21 15:00: Sodium 132 L, Potassium 5.1, Chloride 102, Carbon Dioxide 26.0, Anion Gap 4 L, BUN 42 H, Creatinine 0.98, Estim Creat Clear Calc 71.39, Est GFR (MDRD) Af Amer 97, Est GFR (MDRD) Non-Af 80, BUN/Creatinine Ratio 42.9 H, Glucose 467 H*, Calcium 9.1, Troponin I High Sens 13 04/21/21 16:56: Urine Color Yellow, Urine Clarity Sl. Cloudy, Urine pH 6.0, Ur Specific [place] 1.020, Urine Protein 30 H, Urine Glucose (UA) 1000 H, Urine Ketones 5 H, Urine Occult Blood 10 H, Urine Nitrite Negative, Urine Bilirubin Negative, Urine Urobilinogen Normal, Ur Leukocyte Esterase 25 H, Urine RBC 0 SEEN, Urine WBC 0-5 SEEN, Ur Squamous Epith Cells 0-5 SEEN, Urine Bacteria 0 SEEN, Urine Mucus 0 SEEN, Urine Yeast 3+ Rhythm Strip Rhythm Strip: Sinus Rhythm Rate: 81 Ectopy: PAC(s) Radiology Impression Chest X-Ray 04/21/21 15:13 IMPRESSION: No active disease. Electronically Signed: Boston Myers MD at 15:44 EST , Assessment & Plan Assessment/Plan (1) FTT (failure to thrive) in adult: PLAN: The patient is a 70 y/o M w/ PMHx: Tobacco use, COPD/Asthma/Chronic bronchitis, , HTN, HLD, Hx NH Lymphoma, Diabetes mellitus type II, Recent COVID- 19 Illness, Rheumatoid arthritis, Chronic anemia who was recently discharged on 04/11/21 following admission for COPD exacerbation secondary to Acute rhinoviral illness with steroids upon discharge who now re-presents to the [facility] ED on 04/21/21 now for the 5th ED evaluation since February 2021 with fatigue, weakness, reporting ongoing difficulty with intake secondary to taste disturbances from his prior COVID illness but continued refusal for SNF placement reporting ongoing home therapies and following outpatient with his physicians. #1. Adult failure to thrive with general weakness and debility: Patient very adamant unfortunately that he does not want to go to a skilled facility but has had serial recent hospitalizations and several ED visits. Will admit to medical surgical floor, will continue judicious hydration, will maintain on fall precautions, will have PT and OT assessments as well as case management e valuation for discharge planning to assure a very well aggressive outpatient set up but again would further insist on patient consideration as well as family consideration for potential skilled or transitional stay. Nutrition consulted for assistance with encouraging oral intake and education to maintain appropriate intake and increase nutritional component. #2. Recent acute on chronic hypoxic respiratory failure secondary to COPD/asthma exacerbation secondary to acute rhino viral syndrome complicated by recent Covid 19 illness: We will continue patient steroid regimen, will use aggressive insulin sliding scale given hyperglycemia secondary to steroids, will continue as needed albuterol usage, no new symptoms or any worsening status per review with patient. #3. Hyperglycemia with diabetes mellitus type II: Patient with hyperglycemia secondary to steroid usage, will continue aggressive insulin sliding scale, hold oral regimen, will dose with a x1 upon admission to attempt to reduce blood sugar level, of note anion gap normal. #4. CAD: Status post PCI, continue aspirin, metoprolol, not on statin therapy, defer to outpatient #5. Hypertension: Continue home regimen including metoprolol with hold parameters as needed, PRN hydralazine. #6. Hyperlipidemia: Not on statin therapy, defer to outpatient #7. Tobacco Abuse: Encouraged cessation, inpatient consultation per RT, NR if desired. #8. History of non-Hodgkin's lymphoma: Considered in remission, encourage continued outpatient follow-up with oncology #9. Chronic anemia/iron deficiency anemia: We will continue iron supplementation, CBC trending. #10. DVT prophylaxis: SCDs, Lovenox. Charges/Coding Visit Charges OBSV E&M: 20218 Initial observation care L2
[2021-04-21 19:11] LABS: Bedside Glucose 369 mg/dL (70-110)
[2021-04-21] MEDS: 0.9% Normal Saline 1,000 ML 100 ML IV (20:51)
[2021-04-21] MEDS: 0.9% Saline Lock 10 ML Syringe IV (20:52)
[2021-04-21] MEDS: Metoprolol Tartrate 25 MG Tablet PO (21:05)
[2021-04-21] MEDS: Atorvastatin Calcium 40 MG Tablet PO (21:05)
--- NOTE | 2021-04-21 21:38 | NURSING ---
Pt's called last night shortly after admission concerned about patients status. I gave her a call back and updated her on how he was doing. While I was in the room performing the admission the patient called his on the phone and asked her to be here right at the start of the visitation hours the next day. This alarmed the because he was acting difficult on the phone prompting her to call. I assured her his vitals signs were stable and he was medically stable in the room. The was concerned about his recent decline and failure to thrive over the last couple of months. She had mentioned he is not motivated to walk or rehab at home and OT is only scheduled twice a week and PT only once a week and the Patient does not seem to be improving. She also inquired about our Rehab facility here at the hospital and wondered if he would be a candidate for that. I told her I did not know that information, that I would pass it along and that maybe case management would be able to help them with that on Friday because I don't think they handle those things on the weekend.
[2021-04-21] MEDS: CLARIFY ORDER 1 EACH NOTE (22:40)
[2021-04-21 23:11] LABS: Bedside Glucose 374 mg/dL (70-110)
[2021-04-21 23:15] LABS: Bedside Glucose 322 mg/dL (70-110)
[2021-04-21] MEDS: Insulin Lispro 100 UNIT/ML INSULN.PEN 20 UNIT SC (23:25)
[2021-04-22] VITALS (20 sets, daily range): BP systolic 98–137; BP diastolic 47–75; PULSE 58–86; RESP 16–24; TEMP 35.8–38.7; O2SAT 84–97
[2021-04-22 03:16] LABS: Bedside Glucose 198 mg/dL (70-110)
[2021-04-22 05:21] LABS: Bedside Glucose 155 mg/dL (70-110)
[2021-04-22] MEDS: Insulin Lispro 100 UNIT/ML INSULN.PEN SC ×3 (05:54→22:26)
[2021-04-22 06:17] LABS: Absolute Lymphocyte Count 0.71 X10^3/uL (0.83-4.51); Absolute Neutrophil Count 6.4 X10^3/uL (2.0-7.7); Basophil# 0.01 X10^3/uL; Basophil% 0.1 % (0-1); Eosinophil# 0.03 X10^3/uL; Eosinophils% 0.4 % (0-5); Hematocrit 29.9 % (40-54); Hemoglobin 9.8 g/dL (13.0-16.5); Lymphocyte # 0.71 X10^3/ul (0.83-4.51); Lymphocyte % 9.2 % (19-41); Mean Corp Hgb Conc 32.8 g/dL (32-36); Mean Corpuscular Hgb 25.7 pg (27.0-32.0); Mean Corpuscular Volume 78.5 fL (80-94); Mean Platelet Vol. 10.4 fl (6.2-12.0); Monocyte# 0.41 X10^3/uL; Monocyte% 5.3 % (0-10); NRBC Flagged by Analyzer 0 % (0-5); Neutrophil # 6.44 X10^3/uL (2.7-7.7); Neutrophil % 83.7 % (47-70); Platelet Count 225 K/mm3 (150-450); RBC Distribution Width CV 15.7 % (11.6-14.6); RBC Distribution Width SD 44.5 fl (35.1-43.9); Red Blood Count 3.81 M/mm3 (4.6-6.2); White Blood Count 7.7 K/mm3 (4.4-11.0)
[2021-04-22 06:54] LABS: ALB/GLOB Ratio 0.6 RATIO (0.9-2.4); AST(SGOT) 15 U/L (15-37); Alanine Aminotransfer ALT/SGPT 22 U/L (16-61); Alkaline Phosphatase 63 U/L (45-117); Anion Gap 3 (5-15); BUN 30 mg/dL (7-18); Calcium,Total 8.6 mg/dL (8.5-10.1); Chloride 107 mmol/L (98-107); Creatinine, Serum 0.73 mg/dL (0.70-1.30); EST Glomerular Filtration Rate 112 mL/min (>60); Est Glom Filt Rate - Afr Amer 136 mL/min (>60); Estimated Creatinine Clearance 69.96 ml/min; Globulin 3.1 g/dL (2.2-4.2); Glucose 127 mg/dL (74-106); Protein, Total 5.1 g/dL (6.4-8.2); Sodium Level 138 mmol/L (136-145)
--- NOTE | 2021-04-22 07:41 | PCM.PN.HOSP ---
Objective Data Objective Data Vital Signs: Vital Signs Temp Pulse Resp BP Pulse Ox 98.5 F 77 16 137/60 H 94 04/22/21 03:08 04/22/21 03:08 04/22/21 03:08 04/22/21 03:08 04/22/21 03:08 Oxygen Flow Rate (L/min) 4 Oxygen Delivery Method Nasal Cannula Weight: 196 lb 6.91 oz Body Mass Index (BMI) 27.7 Intake & Output: Intake and Output for Last 24 Hours 04/20/21 04/21/21 04/22/21 23:59 23:59 23:59 Intake Total 1000 / 1000 978.33 / 978.33 Balance 1000 / 1000 978.33 / 978.33 Lab / Micro Data Result Diagrams: 04/22/21 06:03 04/22/21 06:03 Labs: Laboratory Results - last 24 hr 04/21/21 15:00: WBC 10.2, RBC 4.02 L, Hgb 10.4 L, Hct 30.4 L, MCV 75.6 L, MCH 25.9 L, MCHC 34.2, RDW Std Deviation 42.5, RDW Coeff of Rafael 15.7 H, Plt Count 267, MPV 10.9, Immature Gran % (Auto) 0.700, Neut % (Auto) 91.1 H, Lymph % (Auto) 3.8 L, [place] % (Auto) 4.2, Eos % (Auto) 0.1, Baso % (Auto) 0.1, Absolute Neuts (auto) 9.2 H, Absolute Lymphs (auto) 0.39 L, Nucleated RBC % 0, Differential Comment , Platelet Estimate ADEQUATE, RBC Morphology NORM C+C 04/21/21 15:00: Sodium 132 L, Potassium 5.1, Chloride 102, Carbon Dioxide 26.0, Anion Gap 4 L, BUN 42 H, Creatinine 0.98, Estim Creat Clear Calc 71.39, Est GFR (MDRD) Af Amer 97, Est GFR (MDRD) Non-Af 80, BUN/Creatinine Ratio 42.9 H, Glucose 467 H*, Calcium 9.1, Troponin I High Sens 13 04/21/21 16:56: Urine Color Yellow, Urine Clarity Sl. Cloudy, Urine pH 6.0, Ur Specific [place] 1.020, Urine Protein 30 H, Urine Glucose (UA) 1000 H, Urine Ketones 5 H, Urine Occult Blood 10 H, Urine Nitrite Negative, Urine Bilirubin Negative, Urine Urobilinogen Normal, Ur Leukocyte Esterase 25 H, Urine RBC 0 SEEN, Urine WBC 0-5 SEEN, Ur Squamous Epith Cells 0-5 SEEN, Urine Bacteria 0 SEEN, Urine Mucus 0 SEEN, Urine Yeast 3+ 04/21/21 19:06: POC Glucose 369 H 04/21/21 20:12: POC Glucose 374 H 04/21/21 23:10: POC Glucose 322 H 04/22/21 03:05: POC Glucose 198 H 04/22/21 05:17: POC Glucose 155 H 04/22/21 06:03: WBC 7.7, RBC 3.81 L, Hgb 9.8 L, Hct 29.9 L, MCV 78.5 L, MCH 25.7 L, MCHC 32.8, RDW Std Deviation 44.5 H, RDW Coeff of Rafael 15.7 H, Plt Count 225, MPV 10.4, Immature Gran % (Auto) 1.300 H, Neut % (Auto) 83.7 H, Lymph % (Auto) 9.2 L, [place] % (Auto) 5.3, Eos % (Auto) 0.4, Baso % (Auto) 0.1, Absolute Neuts (auto) 6.4, Absolute Lymphs (auto) 0.71 L, Nucleated RBC % 0 04/22/21 06:03: Sodium 138, Potassium 4.0, Chloride 107, Carbon Dioxide 28.0, Anion Gap 3 L, BUN 30 H, Creatinine 0.73, Estim Creat Clear Calc 69.96, Est GFR (MDRD) Af Amer 136, Est GFR (MDRD) Non-Af 112, BUN/Creatinine Ratio 41.0 H, Glucose 127 H, Calcium 8.6, Total Bilirubin 0.70, AST 15, ALT 22, Alkaline Phosphatase 63, Total Protein 5.1 L, Albumin 2.0 L, Globulin 3.1, Albumin/Globulin Ratio 0.6 L Radiography Diagnostic Testing: Radiology Impression Chest X-Ray 04/21/21 15:13 IMPRESSION: No active disease. Electronically Signed: Boston Myers MD at 15:44 EST , Rhythm Strip Rhythm Strip: Sinus Rhythm Rate: 81 Ectopy: PAC(s) Assessment & Plan Assessment/Plan (1) FTT (failure to thrive) in adult: PLAN: The patient is a 70 y/o M w/ PMHx: Tobacco use, COPD/Asthma/Chronic bronchitis, , HTN, HLD, Hx [place] Lymphoma, Diabetes mellitus type II, Recent COVID-19 Illness, Rheumatoid arthritis, Chronic anemia who was recently discharged on 04/11/21 following admission for COPD exacerbation secondary to Acute rhinoviral illness with steroids upon discharge who now re-presents to the [facility] ED on 04/21/21 now for the 5th ED evaluation since February 2021 with fatigue, weakness, reporting ongoing difficulty with intake secondary to taste disturbances from his prior COVID illness but continued refusal for SNF placement reporting ongoing home therapies and following outpatient with his physicians. #1. Adult failure to thrive with general weakness and debility: Patient very adamant unfortunately that he does not want to go to a skilled facility but has had serial recent hospitalizations and several ED visits. Will admit to medical surgical floor, will continue judicious hydration, will maintain on fall precautions, will have PT and OT assessments as well as case management evaluation for discharge planning to assure a very well aggressive outpatient set up but again would further insist on patient consideration as well as family consideration for potential skilled or transitional stay. Nutrition consulted for assistance with encouraging oral intake and education to maintain appropriate intake and increase nutritional component. #2. Recent acute on chronic hypoxic respiratory failure secondary to COPD/asthma exacerbation secondary to acute rhino viral syndrome complicated by recent Covid 19 illness: We will continue patient steroid regimen, will use aggressive insulin sliding scale given hyperglycemia secondary to steroids, will continue as needed albuterol usage, no new symptoms or any worsening status per review with patient. #3. Hyperglycemia with diabetes mellitus type II: Patient with hyperglycemia secondary to steroid usage, will continue aggressive insulin sliding scale, hold oral regimen, will dose with a x1 upon admission to attempt to reduce blood sugar level, of note anion gap normal. #4. CAD: Status post PCI, continue aspirin, metoprolol, not on statin therapy, defer to outpatient #5. Hypertension: Continue home regimen including metoprolol with hold parameters as needed, PRN hydralazine. #6. Hyperlipidemia: Not on statin therapy, defer to outpatient #7. Tobacco Abuse: Encouraged cessation, inpatient consultation per RT, NR if desired. #8. History of non-Hodgkin's lymphoma: Considered in remission, encourage continued outpatient follow-up with oncology #9. Chronic anemia/iron deficiency anemia: We will continue iron supplementation, CBC trending. #10. DVT prophylaxis: SCDs, Lovenox.
[2021-04-22] MEDS: Ferrous Sulfate 325 MG Tablet PO ×2 (09:20→17:27)
[2021-04-22] MEDS: Metoprolol Tartrate 25 MG Tablet PO ×2 (09:20→22:27)
[2021-04-22] MEDS: Acetaminophen 325 MG Tablet 650 MG PO (09:20)
[2021-04-22] MEDS: Aspirin E.C. 81 MG Tablet PO (09:20)
[2021-04-22] MEDS: predniSONE 10 MG Tablet PO (09:21)
[2021-04-22] MEDS: Enoxaparin 40 MG/0.4 ML Syringe SC (09:21)
--- NOTE | 2021-04-22 09:48 | CT_ITS ---
ACR Level 3 findings have been noted. An addendum which confirms receipt of the report will follow. HISTORY: hypoxia. TECHNIQUE: Helically acquired images of the chest following IV contrast as per pulmonary angiogram protocol with 2D and 3D reconstructions. A radiation dose optimization technique was used for this scan. IV Contrast dosage and agent: 100 mL [id number]. # of images incl. paperwork: [id number]. COMPARISON: XR prior day, CTA 04/08/2021. FINDINGS: CENTRAL AIRWAYS: Patent. LUNGS: Increased bilateral groundglass and alveolar opacities with mild septal thickening. 6 mm right middle lobe pulmonary nodule. PLEURA: No pneumothorax or pleural effusion. PULMONARY ARTERIES: Filling defects in the lingular and left lower lobar branches with segmental extension. Several right upper lobe segmental filling defects. HEART/PERICARDIUM: No right heart strain. Heart within normal limits in size. No significant pericardial effusion. Midline sternotomy. Coronary artery disease noted. AORTA/GREAT VESSELS: No aortic aneurysm or dissection flap. MEDIASTINUM/LIDIA: Scattered small lymph nodes. OSSEOUS STRUCTURES: Degenerative change. UPPER ABDOMEN: Incompletely imaged right renal cystic lesion. CT/CTA Chest W/WO Contrast IMPRESSION: Multiple bilateral pulmonary emboli involving lingular and left lower lobar branches with segmental extension and right upper lobe segmental branches. Increased bilateral pneumonia. Pulmonary hemorrhage could not be similar appearance. 6 mm right middle lobe pulmonary nodule. Individualized dose optimization techniques were used for this CT. at 1043 Reported and signed by: Jessika Vo MD Electronically Signed: Jessika Vo MD at 10:42 EST ,
--- NOTE | 2021-04-22 10:26 | RAD_ITS ---
HISTORY: abdominal pain?. TECHNIQUE: XR Abdomen W/ Decub and/or Erect Views. # of images incl. paperwork: 4. COMPARISON: None. FINDINGS: FREE AIR: None seen on decubitus view. BOWEL GAS PATTERN: Mild gaseous distention of small bowel. Moderate stool in the colon. SOFT TISSUES: Residual contrast in the renal collecting systems and urinary bladder. BONES: Degenerative change. RAD/Abd Inc Decub and/or Erect IMPRESSION: Mild gaseous distention of small bowel and moderate stool throughout the colon, suggesting constipation and ileus. at 1047 Reported and signed by: Jessika Vo MD Electronically Signed: Jessika Vo MD at 10:46 EST ,
--- NOTE | 2021-04-22 10:31 | PN.HOSP_ITS ---
Documented by User: Luz Boyd ELECTRICAL POWER ENGINEER, ELECTRICAL POWER ENGINEER-C 04/22/21 11:20 Subjective Subjective Patient seen and examined. Drowsy during assessment. Noted to be hypoxic and placed on Ventimask. Notified by nursing of temp 101.6F. Objective Data Objective Data Vital Signs: Vital Signs Temp Pulse Resp BP Pulse Ox 101.6 F H 83 20 H 107/56 L 93 04/22/21 09:53 04/22/21 09:53 04/22/21 09:53 04/22/21 09:53 04/22/21 09:53 Oxygen Flow Rate (L/min) 6 Oxygen Delivery Method Venturi Mask Weight: 196 lb 6.91 oz Body Mass Index (BMI) 27.7 Intake & Output: Intake and Output for Last 24 Hours 04/20/21 04/21/21 04/22/21 23:59 23:59 23:59 Intake Total 1000 / 1000 978.33 / 978.33 Balance 1000 / 1000 978.33 / 978.33 Lab / Micro Data Result Diagrams: 04/22/21 06:03 04/22/21 06:03 Labs: Laboratory Results - last 24 hr 04/21/21 15:00: WBC 10.2, RBC 4.02 L, Hgb 10.4 L, Hct 30.4 L, MCV 75.6 L, MCH 25.9 L, MCHC 34.2, RDW Std Deviation 42.5, RDW Coeff of Rafael 15.7 H, Plt Count 267, MPV 10.9, Immature Gran % (Auto) 0.700, Neut % (Auto) 91.1 H, Lymph % (Auto) 3.8 L, [place] % (Auto) 4.2, Eos % (Auto) 0.1, Baso % (Auto) 0.1, Absolute Neuts (auto) 9.2 H, Absolute Lymphs (auto) 0.39 L, Nucleated RBC % 0, Differential Comment , Platelet Estimate ADEQUATE, RBC Morphology NORM C+C 04/21/21 15:00: Sodium 132 L, Potassium 5.1, Chloride 102, Carbon Dioxide 26.0, Anion Gap 4 L, BUN 42 H, Creatinine 0.98, Estim Creat Clear Calc 71.39, Est GFR (MDRD) Af Amer 97, Est GFR (MDRD) Non-Af 80, BUN/Creatinine Ratio 42.9 H, Glucose 467 H*, Calcium 9.1, Troponin I High Sens 13 04/21/21 16:56: Urine Color Yellow, Urine Clarity Sl. Cloudy, Urine pH 6.0, Ur Specific [place] 1.020, Urine Protein 30 H, Urine Glucose (UA) 1000 H, Urine Ketones 5 H, Urine Occult Blood 10 H, Urine Nitrite Negative, Urine Bilirubin Negative, Urine Urobilinogen Normal, Ur Leukocyte Esterase 25 H, Urine RBC 0 SEEN, Urine WBC 0-5 SEEN, Ur Squamous Epith Cells 0-5 SEEN, Urine Bacteria 0 SEEN, Urine Mucus 0 SEEN, Urine Yeast 3+ 04/21/21 19:06: POC Glucose 369 H 04/21/21 20:12: POC Glucose 374 H 04/21/21 23:10: POC Glucose 322 H 04/22/21 03:05: POC Glucose 198 H 04/22/21 05:17: POC Glucose 155 H 04/22/21 06:03: WBC 7.7, RBC 3.81 L, Hgb 9.8 L, Hct 29.9 L, MCV 78.5 L, MCH 25.7 L, MCHC 32.8, RDW Std Deviation 44.5 H, RDW Coeff of Rafael 15.7 H, Plt Count 225, MPV 10.4, Immature Gran % (Auto) 1.300 H, Neut % (Auto) 83.7 H, Lymph % (Auto) 9.2 L, [place] % (Auto) 5.3, Eos % (Auto) 0.4, Baso % (Auto) 0.1, Absolute Neuts (auto) 6.4, Absolute Lymphs (auto) 0.71 L, Nucleated RBC % 0 04/22/21 06:03: Sodium 138, Potassium 4.0, Chloride 107, Carbon Dioxide 28.0, Anion Gap 3 L, BUN 30 H, Creatinine 0.73, Estim Creat Clear Calc 69.96, Est GFR (MDRD) Af Amer 136, Est GFR (MDRD) Non-Af 112, BUN/Creatinine Ratio 41.0 H, Glucose 127 H, Calcium 8.6, Total Bilirubin 0.70, AST 15, ALT 22, Alkaline Phosphatase 63, Total Protein 5.1 L, Albumin 2.0 L, Globulin 3.1, Albumin/Globu allyson Ratio 0.6 L Radiography Diagnostic Testing: Radiology Impression Chest X-Ray 04/21/21 15:13 IMPRESSION: No active disease. Electronically Signed: Boston Myers MD at 15:44 EST , Rhythm Strip Rhythm Strip: Sinus Rhythm Rate: 81 Ectopy: PAC(s) Physical Exam Const no apparent distress Orientation / Consciousness: lethargic HEENT normocephalic Mouth: dry mucous membranes Eyes PERRL, EOMs intact bilaterally and conjunctivae normal Neck no lymphadenopathy Resp clear to auscultation bilaterally Auscultation: diminished lung sounds Cardio regular rate, regular rhythm and no murmurs Peripheral Pulses: pulses 2+ throughout GI normal to inspection, nondistended, normoactive bowel sounds, non-tender and non-distended Extremity normal to inspection Skin no rashes or lesions noted Lesions: no lesions Rashes: no rashes Trauma: no lacerations or abrasions Neuro CN's II-XII intact bilaterally, no focal motor deficits, no sensory deficits noted and deep tendon reflexes 2+ bilaterally Psych mental status grossly normal and affect normal Assessment & Plan Assessment/Plan (1) FTT (failure to thrive) in adult: PLAN: 1. Acute on chronic hypoxic respiratory failure secondary to acute bilateral PE and bilateral pneumonia, complicated by recent covid/rhinovirus in the setting of chronic COPD/asthma overlap syndrome-continue supplemental oxygen to maintain O2 above 90%. Walking pulse ox prior to discharge. Recently discharged on 3 L at rest and 4 L with exertion. Patient follows with Dr. Singleton, pulmonary medicine. Will consult pulmonary medicine given recurrent admissions for respiratory failure with recurrent pneumonia. 2. Acute bilateral PE-CTA with multiple bilateral pulmonary emboli. Suspect secondary to poor mobility at home as well as recent Covid with likely hyperco agulable state. Therapeutic Lovenox. Transition to oral anticoagulation at discharge. 3. Bilateral pneumonia-CTA with increased bilateral pneumonia. Recent hospitalization. IV Vanc and IV Zosyn. Obtain sputum and blood cultures. Albuterol and DuoNeb aerosols. 4. Chronic COPD/asthma overlap syndrome-do not suspect exacerbation. Continue previously prescribed prednisone taper. Albuterol and DuoNeb aerosols. Check respiratory panel. 5. Adult failure to thrive-multiple recent admissions. PT/OT. Case management consult for discharge planning. Patient/ declined SNF during recent admission. 6. Acute metabolic encephalopathy-secondary to #1, continue treatment per above. 7. Recent COVID-19 infection-completed remdesivir and dexamethasone. 8. CAD with history of stents-continue aspirin, metoprolol. Not on statin. 9. Type 2 diabetes [id number] with sliding scale insulin. Oral regimen on hold. 10. Hypertension-continue metoprolol. 11. History of non-Hodgkin's lymphoma 12. History of rheumatoid arthritis- not on regimen. 13. Tobacco dependence-encouraged cessation. 14. Chronic microcytic anemia/iron deficiency-stable, continue iron supplementation. 15. Severe protein calorie malnutrition secondary to acute illness and inadequate oral intake with recent weight loss. Follow dietary supplement per dietitian recommendation. DVT prophylaxis- Lovenox sc This patient was seen by ROSANGELA HansenC under the supervision of Dr. Sharp. Time spent examining patient, reviewing data and subsequent management of care: 15 Minutes Documented by User: Dr. Clive Sharp MD 04/22/21 12:15 Subjective Subjective Patient is lethargic, moribund, unmotivated. Patient does not answer any questions. He said he is very tired. As per nursing staff, he is oriented to place, person and time. And also has fever T-max 101.2 Fahrenheit, 85% on 4 L of oxygen. Patient put on Ventimask 50% FiO2. Patient was on home 4 L of oxygen after he was discharged from recent Covid infection in February 2021. Was recently discharged on 04/11/2022 2 following admission for COPD examination from acute rhinoviral bronchitis. Objective Data Lab / Micro Data Result Diagrams: 04/22/21 06:03 04/22/21 06:03 Physical Exam Narrative General: Lethargic, drowsy. Intermittent confusion. Somnolent HEENT: Atraumatic, PERRLA, EOMI, Normocephalic Oral: Oral mucosa dry. No Gingival or Mucosal Lesions/ Ulcerations Neck: Supple, No JVD, Negative Carotid Bruits Lungs: Oral mucosa dry. Air entry diminished in bilateral lung bases. No crepitation/rhonchi Cardiovascular: Regular rate, Regular Rhythm, Normal S1, Normal S2, No murmurs Abdomen: Bowel Sounds Present, Soft, Non Tender, Non-Distended : No renal angle tenderness. No suprapubic tenderness. Extremities: No edema, Capillary Refill Less than 3 Seconds Skin: No rashes, No breakdown Musculoskeletal: No Tenderness to Palpation of Joints or Extremities Neurological:Detailed neuro exam unobtainable. Does not follow command. Psych/Mental Status: Flat affect lethargy. Assessment & Plan Assessment/Plan (1) FTT (failure to thrive) in adult: PLAN: This patient was seen in conjunction with ELECTRICAL POWER ENGINEER, Luz. I have independently interviewed and examined the patient and reviewed pertinent history, examination findings, laboratory and plan of management. I have reviewed the note and agree with the documented findings with the few additional points. In brief, patient is admitted for acute on chronic hypoxic respiratory failure, failure to thrive, drowsy lethargic and somnolent. Patient was recently discharged after COPD exacerbation acute rhino virus and bronchitis on 4 L of oxygen. Currently on 50% FiO2 Ventimask. Chest CTA shows multiple bilateral pulmonary emboli involving lingula, left lower branches and segmental extension, right upper segmental branches. Increased bilateral pneumonia. 6 mm right middle lobe pulmonary nodule. Previous CT scan chest 04/08/2021 and February 2021 did not mention about pulmonary nodule. Follow-up pulmonary nodule and PE pulmonary clinic after discharge. Patient history of COPD. Currently does not seem to be in exacerbation with no respiratory distress, tachypnea but patient has worsening hypoxia probably due to PE and bilateral interstitial pneumonia. Started on IV vancomycin and Zosyn. Blood cultures and a sputum culture ordered. Urinary antigens ordered. Adult failure to thrive with multiple recurrent recent admissions. PT OT, case management. Discussed with nursing staff for supervised feeding after swallowing screen. If needed will do swallow/speech therapy. Acute encephalopathy, multiple etiologies probably metabolic/infectious from pneumonia. Other multiple diagnoses as mentioned above including diabetes mellitus type 2, coronary artery disease stent, recent COVID-19 infection, non-Hodgkin's lymphoma, rheumatoid arthritis with severe protein calorie malnutrition. Total time of the visit includes total time spent in counseling or coordination of care, (more than 50% of the total time, spent in obtaining medical information from nurses and other ancillary care providers,explaining to the patient about labs, imaging, diagnosis and management), discussion with business intelligence consultant, review of labs and imaging is 40 minutes; I spent 25 minutes, more than half time and PA spent 15 minutes I have discussed my assessment with ELECTRICAL POWER ENGINEERLuz and orders have been reviewed. Charges/Coding Visit Charges Inpatient E&M: 97066 Subs Hosp L3
[2021-04-22] MEDS: Ipratropium/Albuterol Sulfate 3 ML AMPUL.NEB INHALATION ×4 (11:40→23:08)
[2021-04-22] MEDS: Enoxaparin 60 MG/0.6 ML Syringe 50 MG SC (12:08)
--- NOTE | 2021-04-22 12:15 | CPS ---
patient not engaged. instructed and she states she will work with him and it when he is more awake
[2021-04-22 12:26] LABS: Bedside Glucose 113 mg/dL (70-110)
--- NOTE | 2021-04-22 12:43 | PCM.RX.CS ---
Consult Pharmacy has been consulted to manage selected antiobiotic: Vancomycin Type of Consult: New start Suspected Infection: Pneumonia Labs: Sodium 138 mmol/L (136-145) 04/22/21 06:03 Potassium 4.0 mmol/L (3.5-5.1) 04/22/21 06:03 Chloride 107 mmol/L (98-107) 04/22/21 06:03 Carbon Dioxide 28.0 mmol/L (21.0-32.0) 04/22/21 06:03 Anion Gap 3 (5-15) L 04/22/21 06:03 BUN 30 mg/dL (7-18) H 04/22/21 06:03 Creatinine 0.73 mg/dL (0.70-1.30) 04/22/21 06:03 Est GFR (MDRD) Af Amer 136 mL/min (>60) 04/22/21 06:03 Est GFR (MDRD) Non-Af 112 mL/min (>60) 04/22/21 06:03 BUN/Creatinine Ratio 41.0 RATIO (10-20) H 04/22/21 06:03 Glucose 127 mg/dL (74-106) H 04/22/21 06:03 Microbiology: Microbiology 04/21/21 16:56 Urine Catheter - Catheter Legionella Antigen - Final 04/21/21 16:56 Urine Catheter - Catheter Streptococcus pneumoniae Antigen (M - Final Weight used for dosin.1 kg Estimated Creatinine Clearance: 87 ML/MIN Goal Trough: 15-20 mcg/mL Pharmacy Plan for Drug Dosing: Give initial loading dose of 2000mg IV x1, then continue with 1500mg IV q12h per [facility] protocol. Will check a trough before the 4th total dose tomorrow night. Pharmacy Service will continue to monitor and adjust dosing as required. Follow-Up Labs: Trough Vancomycin Labs to be done on [date and time ordered]: 04/23/21 23:30
[2021-04-22 13:27] LABS: Troponin-I HS 20 pg/mL (3.0-78.0)
[2021-04-22 15:52] LABS: Procalcitonin 0.13 ng/mL (0.00-0.09)
[2021-04-22] MEDS: Enoxaparin 100 MG/ML Syringe 90 MG SC (17:27)
[2021-04-22] MEDS: Glucerna Shake 120 ML LIQUID PO (17:30)
[2021-04-22 18:35] LABS: Bedside Glucose 212 mg/dL (70-110)
[2021-04-22] MEDS: Atorvastatin Calcium 40 MG Tablet PO (22:27)
[2021-04-22 23:36] LABS: Bedside Glucose 280 mg/dL (70-110)
[2021-04-23] VITALS (17 sets, daily range): BP systolic 102–130; BP diastolic 52–71; PULSE 65–145; RESP 16–18; TEMP 36.4–38.2; O2SAT 90–100
[2021-04-23] MEDS: Acetaminophen 325 MG Tablet 650 MG PO ×2 (02:42→12:19)
[2021-04-23 02:56] LABS: Bedside Glucose 194 mg/dL (70-110)
[2021-04-23 05:55] LABS: Absolute Lymphocyte Count 0.38 X10^3/uL (0.83-4.51); Absolute Neutrophil Count 5.1 X10^3/uL (2.0-7.7); Eosinophil# 0.03 X10^3/uL; Eosinophils% 0.5 % (0-5); Hematocrit 26.6 % (40-54); Hemoglobin 8.7 g/dL (13.0-16.5); Lymphocyte # 0.38 X10^3/ul (0.83-4.51); Lymphocyte % 6.4 % (19-41); Mean Corp Hgb Conc 32.7 g/dL (32-36); Mean Corpuscular Hgb 25.9 pg (27.0-32.0); Mean Corpuscular Volume 79.2 fL (80-94); Mean Platelet Vol. 11.1 fl (6.2-12.0); Monocyte# 0.33 X10^3/uL; Monocyte% 5.6 % (0-10); NRBC Flagged by Analyzer 0 % (0-5); Neutrophil # 5.13 X10^3/uL (2.7-7.7); Neutrophil % 86.8 % (47-70); POSITIVE DIFFERENTIAL YES; Platelet Count 181 K/mm3 (150-450); RBC Distribution Width CV 15.8 % (11.6-14.6); RBC Distribution Width SD 44.6 fl (35.1-43.9); Red Blood Count 3.36 M/mm3 (4.6-6.2); White Blood Count 5.9 K/mm3 (4.4-11.0)
--- NOTE | 2021-04-23 05:55 | ECHOCS_ITS ---
Reason For Study: SOB Procedure This was a 2D Doppler, Color Flow transthoracic echocardiogram. The study was technically difficult. Exam performed portable in patient room. Left Ventricle Normal LV size. Left ventricular systolic function is normal. The estimated ejection fraction is 65 %. Stage 1 diastolic dysfunction. No regional wall motion abnormalities noted. Right Ventricle Normal RV size. Normal systolic function. Atria Normal left atrium. Normal right atrium. Mitral Valve Normal mitral valve. Tricuspid Valve Normal tricuspid valve. Unable to estimate RV systolic pressure due to insufficient tricuspid regurgitant envelope. Aortic Valve The aortic valve is not well visualized. Peak aortic valve gradient 18 mmHg. Mean aortic valve gradient 9 mmHg. Mild aortic stenosis. Pulmonic Valve The pulmonic valve is not well visualized. Great Vessels Normal aortic root. The pulmonary artery is normal size. Normal inferior vena cava. Pericardium/Pleural No pericardial effusion. Medication Diluted definity 3ml given slow IV push to enhance endocardial definition. MMode/2D Measurements & Calculations LVIDd: 3.6 cm IVSd: 0.91 cm LVOT diam: 2.2 cm LVIDs: 2.3 cm LVPWd: 1.2 cm RVDd: 2.2 cm FS: 36.2 % LVOT area: 3.7 cm2 Ao root diam: 3.5 cm LAV(MOD-bp): 36.7 ml LVAd ap4: 31.2 cm2 LAV(MOD-bp) Indexed: 17.7 ml/m2 LVLd ap4: 8.1 cm LAV(MOD-sp2): 55.7 ml EDV(MOD-sp4): 99.7 ml LAV(MOD-sp4): 25.0 ml EDV(sp4-el): 102.7 ml LVAs ap4: 13.9 cm2 LVLs ap4: 7.0 cm ESV(MOD-sp4): 24.3 ml ESV(sp4-el): 23.5 ml EF(MOD-sp4): 75.6 % EF(sp4-el): 77.1 % LVAd ap2: 32.6 cm2 SV(MOD-sp4): 75.5 ml SV(MOD-sp2): 81.5 ml LVLd ap2: 7.8 cm EDV(MOD-sp2): 112.6 ml EDV(sp2-el): 116.1 ml LVAs ap2: 16.1 cm2 LVLs ap2: 6.9 cm ESV(MOD-sp2): 31.1 ml ESV(sp2-el): 31.7 ml EF(MOD-sp2): 72.3 % SV(sp4-el): 79.2 ml LA dimension(2D): 3.4 cm LA A4 area: 12.3 cm2 RA A4 area: 10.9 cm2 Doppler Measurements & Calculations MV E max oliver: 87.9 cm/sec Lat Peak E' Oliver: 8.4 cm/sec Med Peak E' Oliver: 6.2 cm/sec MV A max oliver: 122.2 cm/sec E/E' lat: 10.5 E/E' med: 14.2 MV E/A: 0.72 Ao V2 max: 215.9 cm/sec LV V1 max: 100.9 cm/sec SV(LVOT): 69.4 ml Ao max P.7 mmHg LV V1 max P.1 mmHg Ao V2 mean: 146.2 cm/sec LV V1 mean P.1 mmHg Ao mean P.7 mmHg LV V1 mean: 67.9 cm/sec Ao V2 VTI: 38.6 cm LV V1 VTI: 19.0 cm MOLINA(I,D): 1.8 cm2 MOLINA(V,D): 1.7 cm2 PA V2 max: 105.8 cm/sec ECHO/Echo Complete W/ Contrast Interpretation Summary Normal LV size. Left ventricular systolic function is normal. The estimated ejection fraction is 65 %. Stage 1 diastolic dysfunction. Mean aortic valve gradient 9 mmHg. Mild aortic stenosis. Contrast injection was performed. Ordering Physician: Clive Sharp Referring Physician: Donna Will M.D. Performed By: Bijal Mahajan RDCS
[2021-04-23 06:05] LABS: Differential Indicated SCAN CRITERIA MET
[2021-04-23 06:17] LABS: Differential Comment SCANNED
[2021-04-23 06:19] LABS: Anion Gap 6 (5-15); BUN 24 mg/dL (7-18); BUN/Creat Ratio 40.3 RATIO (10-20); Calcium,Total 7.6 mg/dL (8.5-10.1); Chloride 107 mmol/L (98-107); EST Glomerular Filtration Rate 142 mL/min (>60); Est Glom Filt Rate - Afr Amer 172 mL/min (>60); Estimated Creatinine Clearance 69.96 ml/min; Glucose 144 mg/dL (74-106); Potassium 3.8 mmol/L (3.5-5.1); Sodium Level 138 mmol/L (136-145)
[2021-04-23] MEDS: Enoxaparin 100 MG/ML Syringe 90 MG SC ×2 (06:46→17:19)
[2021-04-23 06:56] LABS: Bedside Glucose 146 mg/dL (70-110)
[2021-04-23] MEDS: Ipratropium/Albuterol Sulfate 3 ML AMPUL.NEB INHALATION ×3 (07:24→15:22)
--- NOTE | 2021-04-23 08:46 | CON.PCM.CC_ITS ---
Assessment & Plan Assessment/Plan (1) Acute alteration in mental status: (2) Hypoxemia: (3) Nicotine dependence, cigarettes, uncomplicated: (4) Diabetes: (5) Non-Hodgkin lymphoma: (6) RA (rheumatoid arthritis): QUALIFIERS: Rheumatoid factor presence: unspecified presence Laterality: unspecified laterality (7) Pulmonary embolism: PLAN: RECOMMENDATIONS: 1. Continue anticoagulation 2. Consider continuing prednisone taper as previously prescribed 3. Await final sputum culture prior to discontinuation of antibiotics 4. Challenge with diuretics as tolerated. Supplement potassium if needed 5. Wean oxygen as tolerated. Walking oximetry prior to discharge 6. Potential discharge if able to ambulate on 6 L or less IMPRESSIONS: 1. Acute on chronic hypoxic respiratory insufficiency with recent COVID-19, rhinovirus and PE in the setting of COPD/asthma overlap syndrome Patient does have groundglass opacities noted on CTA of the chest. This appears to be slightly worse compared to previous CT earlier in the month. This may be secondary to rhinovirus. Unclear if this is residual from previous COVID-19 versus a secondary process. Patient is immunosuppressed at baseline secondary to rheumatoid arthritis, so may not have a significant leukocytosis. Clinical suspicion for worsening oxygenation status secondary to PE. Patient does have significant immobility, recent COVID-19 infection and clinical dehydration on presentation, increasing risk for PE. Likely okay to transition to 10 a inhibitor and treat for a minimum of 6 months. Okay to continue with antibiotics until cultures negative. 2. Acute metabolic encephalopathy Resolved. Clinical suspicion that this is secondary to hypoxia. ABG did not show significant CO2 retention. Delirium secondary to acute infectious etiology would also be a consideration. We will continue to monitor. 3. Coronary artery disease status post stents/type 2 diabetes mellitus/hypertension/history of RA/history of lymphoma/tobacco dependence Complicates care, management, recovery and prognosis. Will need to watch blood sugars closely given steroids using for problem #1. Blood pressures appear to be relatively controlled at this time. Continue current medications. Patient can be offered nicotine replacement if necessary. Did confirm with the patient that he is a full code. HPI Consult Data Date of Consult: 04/23/21 HPI Narrative HPI Narrative: SAL ALONZO is a 70 M, with past medical history listed below and known to me from previous hospitalization, who presented to [facility] on 04/21/2021 secondary to progressive shortness of breath without other constitutional symptoms such as fever, chills, nausea or vomiting. At that time, patient did not reported any chest pain or shortness of breath. In the ER, patient was afebrile and normotensive on baseline 2 L nasal cannula. Laboratory work-up at that time showed a white blood cell count of 10.2, hemoglobin of 10.4 and a sodium of 132. Renal function was within normal limits, but glucose was significantly elevated at 467. The patient did receive IV fluids and was admitted to the floor for further evaluation. Since being on the floor, patient has had a significant increase in supplemental oxygen requirements. This led to a CTA of the chest showing worsening bilateral groundglass opacities and left lower lobe PE (personally reviewed). Patient is currently requiring 5 to 6 L nasal cannula to maintain saturations. Patient did have a significant fever overnight. Patient has been on empiric healthcare associated antibiotics. Viral panel has shown rhinovirus, but this was present on patient's last hospitalization. Patient subjectively feels slightly improved compared to previous, but does admit that he is requiring more oxygen than normal. Patient does not report a history of pulmonary emboli in the past. Additional history is unchanged compared to previous consultation. Patient has been refusing ECF placement. Patient does wish to be aggressive. No bleeding complications have been reported. Patient did have some polyuria, but had attributed this to elevated blood sugars. Review of systems otherwise negative from a constitutional, HEENT, respiratory, cardiovascular, GI, genitourinary, musculoskeletal, skin, neurologic, psychiatric and hematologic system unless stated above. FOR[facility]LY [facility] Medical History Allergic rhinitis Arthritis Asthma Atherosclerosis of coronary artery of [place] heart without angina pectoris Bronchitis Cancer Chronic bronchitis Colon polyp COPD (chronic obstructive pulmonary disease) COVID-19 COVID-19 in immunocompromised patient Diabetes Gastritis History of basal cell carcinoma History of diabetes mellitus, type II History of non-Hodgkin's lymphoma History of pilonidal cyst Hyperlipidemia Hypertension Iron deficiency anemia Iron deficiency anemia Lab test negative for COVID-19 virus Nicotine dependence, cigarettes, uncomplicated Non-Hodgkin lymphoma Obesity Pneumonia Pneumonia due to COVID-19 virus Positive colorectal cancer screening using Cologuard test RA (rheumatoid arthritis) Tobacco use URI (upper respiratory infection) 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 complications Home Medications aspirin 81 mg tablet,delayed release 81 mg PO DAILY 09/28/19 [History Last Taken Unknown] cholecalciferol (vitamin D3) 25 mcg (1,000 unit) capsule 25 mcg PO DAILY 07/17/20 [History Last Taken Unknown] ferrous sulfate 325 mg (65 mg iron) tablet 325 mg PO BID #60 tab 07/18/20 [Rx Last Taken Unknown] metoprolol tartrate 25 mg tablet 25 mg PO BID #180 tab 09/12/20 [Rx Last Taken Unknown] nitroglycerin 0.4 mg sublingual tablet 0.4 mg SUBLINGUAL Q5M PRN #30 tab 09/25/20 [Rx Last Taken Unknown] cyanocobalamin (vitamin B-12) 1,000 mcg capsule 1,000 mcg PO DAILY 01/29/21 [History Last Taken Unknown] glimepiride 2 mg tablet 2 mg PO DAILY #90 tab 01/29/21 [Rx Last Taken Unknown] metformin 500 mg tablet 500 mg PO BID #180 tab 01/29/21 [Rx Last Taken Unknown] albuterol sulfate 2 puff INHALATION Q6H PRN #6.7 g 04/11/21 [Rx Last Taken Unknown] prednisone See Taper PO DAILY #30 tab 04/11/21 [Rx Last Taken Unknown] atorvastatin 40 mg PO QHS 04/21/21 [History Last Taken Unknown] Allergy/AdvReac Type Severity Reaction Status Date / Time famotidine [From Pepcid] AdvReac Intermediate Diarrhea Verified 04/21/21 14:29 levofloxacin [From Levaquin] AdvReac Intermediate dizziness Verified 04/21/21 14:29 Family History Father Arthritis Bleeding disorder Hypertension Kidney disease Cancer Skin Anemia blood clots Emphysema lung Mother Colon cancer Cancer Lung Cancer Diabetes Brother Thyroid disorder Surgical History History of coronary artery stent placement (~10/22/13) History of excision of pilonidal cyst History of thymectomy Hx of lymph node excision Social History household members: spouse Smoking Status: Former smoker second hand exposure: Yes quit status: considering quitting alcohol intake: current alcohol intake frequency: holidays/special occasions only substance use type: does not use caffeine: Yes Type: coffee Number of servings: 3 what type of physical activity do you participate in: none frequency: does not exercise seatbelt use: always ROS ROS Narrative See HPI Physical Exam Const alert and no apparent distress Constitutional Narrative: Lying in bed on my examination. No conversational dyspnea Orientation / Consciousness: confused HEENT normocephalic and moist oral mucous membranes Eyes PERRL, EOMs intact bilaterally and conjunctivae normal Neck no lymphadenopathy Chest Chest: abnormal inspection of the chest increased A-P diameter; Negative for crepitus Resp Auscultation: diminished lung sounds; Negative for rales, rhonchi or wheezes Cardio regular rate, regular rhythm and no murmurs Peripheral Pulses: pulses 2+ throughout GI normal to inspection, nondistended, normoactive bowel sounds, non-tender and non-distended Extremity normal to inspection General Extremity: edema bilateral (2+) lower extremity; Negative for clubbing or cyanosis Skin no rashes or lesions noted Lesions: no lesions Rashes: no rashes Trauma: no lacerations or abrasions Neuro CN's II-XII intact bilaterally, no focal motor deficits, no sensory deficits noted and deep tendon reflexes 2+ bilaterally Psych mental status grossly normal and affect normal Medical Records Data Medical Nutrition Assessment Dietitian: Malnutrition Criteria Met Start: 04/22/21 13:14 Freq: Status: Active Protocol: Document 04/22/21 13:14 (Rec: 04/22/21 13:14 [id number]) Nutrition Malnutrition Evidence of Malnutrition Exists Yes Malnutrition (severe): Acute Illness/Injury Evidenced By Suboptimal Energy Intake ( Severe),Weight Loss (Severe) Clinical Problem Acute Disease or Injury Related Malnutrition Etiology severe, acute malnutrition r/t inadequate energy intake w/ acute illness Signs/Symptoms as evidenced by unintentional wt loss of 20.5#/9.4% x 1 month, estimated PO intake meeting <75% of estimated energy needs x 1 month Status Active Problem Recommendation Dietitian Recommendations/Changes will liberalize diet to regular given severe malnutrition; continue 120mL glucerna ONS w/ medpass for additional calories/protein if consumed. Lab / Micro Data Result Diagrams: 04/23/21 05:14 04/23/21 05:14 Labs: Laboratory Results - last 24 hr 04/22/21 11:57: POC Glucose 113 H 04/22/21 12:37: Troponin I High Sens 20 04/22/21 12:37: B-Natriuretic Peptide 80.0 04/22/21 14:55: Procalcitonin 0.13 H 04/22/21 17:25: POC Glucose 212 H 04/22/21 22:25: POC Glucose 280 H 04/23/21 02:53: POC Glucose 194 H 04/23/21 05:14: WBC 5.9, RBC 3.36 L, Hgb 8.7 L, Hct 26.6 L, MCV 79.2 L, MCH 25.9 L, MCHC 32.7, RDW Std Deviation 44.6 H, RDW Coeff of Rafael 15.8 H, Plt Count 181, MPV 11.1, Immature Gran % (Auto) 0.700, Neut % (Auto) 86.8 H, Lymph % (Auto) 6.4 L, [place] % (Auto) 5.6, Eos % (Auto) 0.5, Baso % (Auto) 0.0, Absolute Neuts (auto) 5.1, Absolute Lymphs (auto) 0.38 L, Nucleated RBC % 0, Differential Comment SCANNED 04/23/21 05:14: Sodium 138, Potassium 3.8, Chloride 107, Carbon Dioxide 25.0, Anion Gap 6, BUN 24 H, Creatinine 0.60 L, Estim Creat Clear Calc 69.96, Est GFR (MDRD) Af Amer 172, Est GFR (MDRD) Non-Af 142, BUN/Creatinine Ratio 40.3 H, Glucose 144 H, Calcium 7.6 L 04/23/21 06:45: POC Glucose 146 H Micro: Microbiology 04/22/21 12:40 Mucosa - Nasopharyngeal Respiratory Panel (PCR) - Final Rhinovirus 04/22/21 22:40 Sputum, Expectorated/Coughed Gram Stain - Preliminary 04/21/21 16:56 Urine Catheter - Catheter Legionella Antigen - Final 04/21/21 16:56 Urine Catheter - Catheter Streptococcus pneumoniae Antigen (M - Final Rhythm Strip Rhythm Strip: Sinus Rhythm Rate: 81 Ectopy: PAC(s) Radiology Impression Chest CTA 04/22/21 09:48 IMPRESSION: Multiple bilateral pulmonary emboli involving lingular and left lower lobar branches with segmental extension and right upper lobe segmental branches. Increased bilateral pneumonia. Pulmonary hemorrhage could not be similar appearance. 6 mm right middle lobe pulmonary nodule. Individualized dose optimization techniques were used for this CT. at 1043 Reported and signed by: Jessika Vo MD Electronically Signed: Jessika Vo MD at 10:42 EST Reading Location ID and State: [facility] / [place] Tel , Service support , ADDENDUM: 04/22/21 1059 IMPRESSION: Multiple bilateral pulmonary emboli involving lingular and left lower lobar branches with segmental extension and right upper lobe segmental branches. Increased bilateral pneumonia. Pulmonary hemorrhage could not be similar appearance. 6 mm right middle lobe pulmonary nodule. Individualized dose optimization techniques were used for this CT. at 1043 Reported and signed by: Jessika Vo MD N.B. : Mirian Hart;[phone], RN, confirmed on 04/22/2021 10:52:08 (ET) that the healthcare facility has received the radiology report. Electronically Signed: Jessika Vo MD at 10:42 EST Reading Location ID and State: [facility] / [place] Tel , Service support , Abdomen X-Ray 04/22/21 10:26 IMPRESSION: Mild gaseous distention of small bowel and moderate stool throughout the colon, suggesting constipation and ileus. at 1047 Reported and signed by: Jessika Vo MD Electronically Signed: Jessika Vo MD at 10:46 EST , Charges/Coding Visit Charges Inpatient E&M: 55423 Init Hosp L2
[2021-04-23] MEDS: Metoprolol Tartrate 25 MG Tablet PO ×2 (09:21→22:19)
[2021-04-23] MEDS: Aspirin E.C. 81 MG Tablet PO (09:21)
[2021-04-23] MEDS: Ferrous Sulfate 325 MG Tablet PO ×2 (09:21→16:52)
[2021-04-23] MEDS: predniSONE 10 MG Tablet PO (09:21)
[2021-04-23 11:04] LABS: Magnesium 1.7 mg/dL (1.6-2.6)
[2021-04-23] MEDS: Insulin Lispro 100 UNIT/ML INSULN.PEN SC ×3 (11:27→22:22)
[2021-04-23] MEDS: Bisacodyl 10 MG Suppository RC (11:27)
[2021-04-23 11:55] LABS: Bedside Glucose 206 mg/dL (70-110)
--- NOTE | 2021-04-23 12:20 | CASEMGMT ---
Social Work Note TYE reviewed chart. Pt's Ca is requesting TCU at discharge. TYE placed a call to [facility] with TCU and provided referral. TCU is able to accept pt. SW in to speak with pt and pt's Ca. TYE introduced self and role at [facility]. TYE spoke with Ca regarding discharge plans. Ca confirms she would like pt to go to SNF and preferred provider is [facility] TCU. Patient was provided a list of SNF providers including quality and resource use data and consistent with the patient?s preferred geographic region, medical needs, and insurance network. TYE informed Ca that pt has been accepted to TCU pending pre-cert. Ca states understanding. Plan: TCU pending pre-cert Brittani Hernandez MSW, RENAL NURSE
--- NOTE | 2021-04-23 12:21 | CON.PCM.SX_ITS ---
Assessment & Plan Assessment/Plan (1) Ileus: PLAN: At this point I do not think there is anything surgical going on. W ould encourage ambulation is much as possible. Would remain on clear to full liquids only. HPI Consult Data Date of Consult: 04/23/21 HPI Narrative HPI Narrative: SAL ALONZO, is a 70 M M w/ PMHx: Tobacco use, COPD/Asthma/Chronic bronchitis, , HTN, HLD, Hx [place] Lymphoma, Diabetes mellitus type II, Recent COVID- 19 Illness, Rheumatoid arthritis, Chronic anemia who was recently discharged on 04/11/21 following admission for COPD exacerbation secondary to Acute rhinoviral illness with steroids upon discharge who now re-presents to the [facility] ED on 04/21/21 now for the 5th ED evaluation since February 2021 with fatigue, weakness, reporting ongoing difficulty with intake secondary to taste disturbances from his prior COVID illness but continued refusal for SNF placement reporting ongoing home therapies and following outpatient with his physicians. Upon evaluation of patient his spouse had already left the ED. Patient reports that he would like IVFs and believes this will help him feel improved. Discussed the importance of appropriate oral intake even with his altered taste and again encouraged consideration short stay in transitional care of SNF given his evidence failure to thrive. He denies any worsened dyspnea, increased cough or shortness of breath. He denies any worsening sensation of increased weakness or debility. Work-up in the ED included T 97.1, heart rate 74, BP 119/65, respiratory rate 20, 92 to 95% on room air, CBC with WC 10.2, hemoglobin 10.4, platelet 267 with left shift and lymphopenia on recent steroid administration, BMP with sodium 132, BUN/creatinine 42/0.98, glucose 467, troponin XIII, UDS with elevated specific raphe 1.020, glucose 1000, ketones 5 but anion gap normal, no evidence of urinary tract infection, chest x-ray with no acute cardiopulmonary findings. In the ED patient administered 1L NS bolus. Patient had an abdominal x-ray yesterday which showed mild gaseous distention of the small bowel and moderate stool throughout the colon suggestive of constipation or ileus and I have been consulted for this. Today the patient is not complaining of any abdominal pain nor is he having any nausea or vomiting. He did have a small amount of stool. FOR[facility]LY [facility] Medical History Allergic rhinitis Arthritis Asthma Atherosclerosis of coronary artery of [place] heart without angina pectoris Bronchitis Cancer Chronic bronchitis Colon polyp COPD (chronic obstructive pulmonary disease) COVID-19 COVID-19 in immunocompromised patient Diabetes Gastritis History of basal cell carcinoma History of diabetes mellitus, type II History of non-Hodgkin's lymphoma History of pilonidal cyst Hyperlipidemia Hypertension Iron deficiency anemia Iron deficiency anemia Lab test negative for COVID-19 virus Nicotine dependence, cigarettes, uncomplicated Non-Hodgkin lymphoma Obesity Pneumonia Pneumonia due to COVID-19 virus Positive colorectal cancer screening using Cologuard test RA (rheumatoid arthritis) Tobacco use URI (upper respiratory infection) 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 complications Home Medications aspirin 81 mg tablet,delayed release 81 mg PO DAILY 09/28/19 [History Last Taken Unknown] cholecalciferol (vitamin D3) 25 mcg (1,000 unit) capsule 25 mcg PO DAILY 07/17/20 [History Last Taken Unknown] ferrous sulfate 325 mg (65 mg iron) tablet 325 mg PO BID #60 tab 07/18/20 [Rx Last Taken Unknown] metoprolol tartrate 25 mg tablet 25 mg PO BID #180 tab 09/12/20 [Rx Last Taken Unknown] nitroglycerin 0.4 mg sublingual tablet 0.4 mg SUBLINGUAL Q5M PRN #30 tab 09/25/20 [Rx Last Taken Unknown] cyanocobalamin (vitamin B-12) 1,000 mcg capsule 1,000 mcg PO DAILY 01/29/21 [History Last Taken Unknown] glimepiride 2 mg tablet 2 mg PO DAILY #90 tab 01/29/21 [Rx Last Taken Unknown] metformin 500 mg tablet 500 mg PO BID #180 tab 01/29/21 [Rx Last Taken Unknown] albuterol sulfate 2 puff INHALATION Q6H PRN #6.7 g 04/11/21 [Rx Last Taken Unknown] prednisone See Taper PO DAILY #30 tab 04/11/21 [Rx Last Taken Unknown] atorvastatin 40 mg PO QHS 04/21/21 [History Last Taken Unknown] Allergy/AdvReac Type Severity Reaction Status Date / Time famotidine [From Pepcid] AdvReac Intermediate Diarrhea Verified 04/21/21 14:29 levofloxacin [From Levaquin] AdvReac Intermediate dizziness Verified 04/21/21 14:29 Family History Father Arthritis Bleeding disorder Hypertension Kidney disease Cancer Skin Anemia blood clots Emphysema lung Mother Colon cancer Cancer Lung Cancer Diabetes Brother Thyroid disorder Surgical History History of coronary artery stent placement (~10/22/13) History of excision of pilonidal cyst History of thymectomy Hx of lymph node excision Social History household members: spouse Smoking Status: Former smoker second hand exposure: Yes quit status: considering quitting alcohol intake: current alcohol intake frequency: holidays/special occasions only substance use type: does not use caffeine: Yes Type: coffee Number of servings: 3 what type of physical activity do you participate in: none frequency: does not exercise seatbelt use: always ROS Gastrointestinal Gastrointestinal: Denies abdominal pain, nausea or vomiting Physical Exam Const alert, oriented x3 and no apparent distress General Appearance: cooperative HEENT normocephalic and head/scalp atraumatic Eyes PERRL and EOMs intact bilaterally Resp clear to auscultation bilaterally Cardio Rate: regular rate Rhythm: regular rhythm GI soft to palpation, non-tender and non-distended Palpation: Negative for hernia Medical Records Data Medical Nutrition Assessment Dietitian: Malnutrition Criteria Met Start: 04/22/21 13:14 Freq: Status: Active Protocol: Document 04/22/21 13:14 (Rec: 04/22/21 13:14 [id number]) Nutrition Malnutrition Evidence of Malnutrition Exists Yes Malnutrition (severe): Acute Illness/Injury Evidenced By Suboptimal Energy Intake ( Severe),Weight Loss (Severe) Clinical Problem Acute Disease or Injury Related Malnutrition Etiology severe, acute malnutrition r/t inadequate energy intake w/ acute illness Signs/Symptoms as evidenced by unintentional wt loss of 20.5#/9.4% x 1 month, estimated PO intake meeting <75% of estimated energy needs x 1 month Status Active Problem Recommendation Dietitian Recommendations/Changes will liberalize diet to regular given severe malnutrition; continue 120mL glucerna ONS w/ medpass for additional calories/protein if consumed. Lab / Micro Data Result Diagrams: 04/23/21 05:14 04/23/21 05:14 Labs: Laboratory Results - last 24 hr 04/22/21 11:57: POC Glucose 113 H 04/22/21 12:37: Troponin I High Sens 20 04/22/21 12:37: B-Natriuretic Peptide 80.0 04/22/21 14:55: Procalcitonin 0.13 H 04/22/21 17:25: POC Glucose 212 H 04/22/21 22:25: POC Glucose 280 H 04/23/21 02:53: POC Glucose 194 H 04/23/21 05:14: WBC 5.9, RBC 3.36 L, Hgb 8.7 L, Hct 26.6 L, MCV 79.2 L, MCH 25.9 L, MCHC 32.7, RDW Std Deviation 44.6 H, RDW Coeff of Rafael 15.8 H, Plt Count 181, MPV 11.1, Immature Gran % (Auto) 0.700, Neut % (Auto) 86.8 H, Lymph % (Auto) 6.4 L, [place] % (Auto) 5.6, Eos % (Auto) 0.5, Baso % (Auto) 0.0, Absolute Neuts (auto) 5.1, Absolute Lymphs (auto) 0.38 L, Nucleated RBC % 0, Differential Comment SCANNED 04/23/21 05:14: Sodium 138, Potassium 3.8, Chloride 107, Carbon Dioxide 25.0, Anion Gap 6, BUN 24 H, Creatinine 0.60 L, Estim Creat Clear Calc 69.96, Est GFR (MDRD) Af Amer 172, Est GFR (MDRD) Non-Af 142, BUN/Creatinine Ratio 40.3 H, Glucose 144 H, Calcium 7.6 L 04/23/21 05:14: Magnesium 1.7 04/23/21 06:45: POC Glucose 146 H 04/23/21 11:26: POC Glucose 206 H Micro: Microbiology 04/22/21 12:40 Mucosa - Nasopharyngeal Respiratory Panel (PCR) - Final Rhinovirus 04/22/21 22:40 Sputum, Expectorated/Coughed Gram Stain - Preliminary 04/21/21 16:56 Urine Catheter - Catheter Legionella Antigen - Final 04/21/21 16:56 Urine Catheter - Catheter Streptococcus pneumoniae Antigen (M - Final Rhythm Strip Rhythm Strip: Sinus Rhythm Rate: 81 Ectopy: PAC(s)
--- NOTE | 2021-04-23 13:29 | NURSING ---
Chair alarm going off. MASOUD Donnelly in with patient as well. pt attempting to get to [facility] for BM. Pt had been incontinent in his attends and also had a small formed brown BM in the BSC. Pt is pale and very diaphoretic. vital signs stable. see intervention. patient assisted back to the bed per request. pt unsteady on his feet. pt now resting in bed. bed alarm on. will update TARAH Stephenson.
--- NOTE | 2021-04-23 13:31 | CASEMGMT ---
TARAH DEL RIO Readmission Note Previous Admission: 04/08/21-04/11/21 Diagnosis: acute metabolic encephalopathy DC Disposition: Home with [facility]. Current Admission Current diagnosis: FTT adult Pt presented to ER from home with weakness. Pt is currently receiving therapy by [facility]. Pt with recent readmissions to the hospital and has declined SNF. Pt and agreeable to [facility] TCU. Spoke with who states pt is accepted to TCU and is aware. Pt has designated his as person to discuss dc plans with. Pt reports he has been wearing his O2 cont at home. Pt with ileus currently, not surgical per surgeon c/s. International Bank Manager c/s- pt to remain on atb until sputum cx completed. Pt with rhinovirus. Pt states he does feel weak. Pt reports he has Palliative Care. Email to Palliative and patient is not active. Pt screened with [facility] Palliative Care Screening Tool due to readmit, pt met criteria. Order received and referral emailed at this time. DC PLAN: [facility] TCU with palliative care consult
--- NOTE | 2021-04-23 14:12 | PCM.PN.HOSP ---
Documented by User: Luz Boyd LIVE GAMES DEALER, LIVE GAMES DEALER-C 04/23/21 14:18 Subjective Subjective Patient seen and examined. More alert today. Flat affect. at bedside. Patient reports improvement in breathing. Denies fever, chills. requesting patient go to rehab at discharge. States she cannot take care of him at home. Objective Data Objective Data Vital Signs: Vital Signs Temp Pulse Resp BP Pulse Ox 99.8 F H 86 16 102/56 L 93 04/23/21 13:28 04/23/21 13:28 04/23/21 13:28 04/23/21 13:28 04/23/21 13:28 Oxygen Flow Rate (L/min) 5 Oxygen Delivery Method Nasal Cannula Weight: 204 lb Body Mass Index (BMI) 27.7 Intake & Output: Intake and Output for Last 24 Hours 04/21/21 04/22/21 04/23/21 23:59 23:59 23:59 Intake Total 1000 / 1000 1571.83 / 1571.83 1001.5 / 1001.5 Output Total 0 / 0 Balance 1000 / 1000 1571.83 / 1571.83 1001.5 / 1001.5 Medical Nutrition Assessment Dietitian: Malnutrition Criteria Met Start: 04/22/21 13:14 Freq: Status: Active Protocol: Document 04/22/21 13:14 AG (Rec: 04/22/21 13:14 [id number]) Nutrition Malnutrition Evidence of Malnutrition Exists Yes Malnutrition (severe): Acute Illness/Injury Evidenced By Suboptimal Energy Intake ( Severe),Weight Loss (Severe) Clinical Problem Acute Disease or Injury Related Malnutrition Etiology severe, acute malnutrition r/t inadequate energy intake w/ acute illness Signs/Symptoms as evidenced by unintentional wt loss of 20.5#/9.4% x 1 month, estimated PO intake meeting <75% of estimated energy needs x 1 month Status Active Problem Recommendation Dietitian Recommendations/Changes will liberalize diet to regular given severe malnutrition; continue 120mL glucerna ONS w/ medpass for additional calories/protein if consumed. Lab / Micro Data Result Diagrams: 04/24/21 05:39 04/24/21 05:39 Labs: Laboratory Results - last 24 hr 04/22/21 14:55: Procalcitonin 0.13 H 04/22/21 17:25: POC Glucose 212 H 04/22/21 22:25: POC Glucose 280 H 04/23/21 02:53: POC Glucose 194 H 04/23/21 05:14: WBC 5.9, RBC 3.36 L, Hgb 8.7 L, Hct 26.6 L, MCV 79.2 L, MCH 25.9 L, MCHC 32.7, RDW Std Deviation 44.6 H, RDW Coeff of Rafael 15.8 H, Plt Count 181, MPV 11.1, Immature Gran % (Auto) 0.700, Neut % (Auto) 86.8 H, Lymph % (Auto) 6.4 L, Jones % (Auto) 5.6, Eos % (Auto) 0.5, Baso % (Auto) 0.0, Absolute Neuts (auto) 5.1, Absolute Lymphs (auto) 0.38 L, Nucleated RBC % 0, Differential Comment SCANNED 04/23/21 05:14: Sodium 138, Potassium 3.8, Chloride 107, Carbon Dioxide 25.0, Anion Gap 6, BUN 24 H, Creatinine 0.60 L, Estim Creat Clear Calc 69.96, Est GFR (MDRD) Af Amer 172, Est GFR (MDRD) Non-Af 142, BUN/Creatinine Ratio 40.3 H, Glucose 144 H, Calcium 7.6 L 04/23/21 05:14: Magnesium 1.7 04/23/21 06:45: POC Glucose 146 H 04/23/21 11:26: POC Glucose 206 H Micro: Microbiology 04/22/21 22:40 Sputum, Expectorated/Coughed Gram Stain - Final 04/22/21 12:40 Mucosa - Nasopharyngeal Respiratory Panel (PCR) - Final Rhinovirus 04/21/21 16:56 Urine Catheter - Catheter Legionella Antigen - Final 04/21/21 16:56 Urine Catheter - Catheter Streptococcus pneumoniae Antigen (M - Final Rhythm Strip Rhythm Strip: Sinus Rhythm Rate: 81 Ectopy: PAC(s) Physical Exam Const alert, oriented x3 and no apparent distress Orientation / Consciousness: awake, oriented to person, oriented to place and oriented to time HEENT normocephalic and moist oral mucous membranes Eyes PERRL, EOMs intact bilaterally and conjunctivae normal Neck no lymphadenopathy Resp clear to auscultation bilaterally Auscultation: diminished lung sounds Cardio regular rate, regular rhythm and no murmurs Peripheral Pulses: pulses 2+ throughout GI normal to inspection, nondistended, normoactive bowel sounds, non-tender and non-distended Extremity normal to inspection Skin no rashes or lesions noted Lesions: no lesions Rashes: no rashes Trauma: no lacerations or abrasions Neuro CN's II-XII intact bilaterally, no focal motor deficits, no sensory deficits noted and deep tendon reflexes 2+ bilaterally Psych Mood & Affect: flat affect Assessment & Plan Assessment/Plan (1) Pulmonary embolism: PLAN: 1. Acute on chronic hypoxic respiratory failure secondary to acute bilateral PE and bilateral pneumonia, complicated by recent covid/rhinovirus in the setting of chronic COPD/asthma overlap syndrome-continue supplemental oxygen to maintain O2 above 90%. Walking pulse ox prior to discharge. Recently discharged on 3 L at rest and 4 L with exertion. Patient follows with Dr. Singleton, pulmonary medicine. Pulmonary medicine following. 2. Acute bilateral PE-CTA with multiple bilateral pulmonary emboli. Suspect secondary to poor mobility at home as well as recent Covid with likely hypercoagulable state. Therapeutic Lovenox. Transition to oral anticoagulation at discharge. 3. Bilateral pneumonia-CTA with increased bilateral pneumonia. Recent hospitalization. IV Vanc and IV Zosyn. Sputum and blood culture pending. Albuterol and DuoNeb aerosols. 4. Chronic COPD/asthma overlap syndrome-do not suspect exacerbation. Continue previously prescribed prednisone taper. Albuterol and DuoNeb aerosols. Check respiratory panel. 5. Adult failure to thrive-multiple recent admissions. PT/OT. Case management consult for discharge planning. Patient and amenable to TCU at discharge for rehab. 6. Acute metabolic encephalopathy-secondary to #1, continue treatment per above. Improved. 7. Recent COVID-19 infection-completed remdesivir and dexamethasone. 8. CAD with history of stents-continue aspirin, metoprolol. Not on statin. 9. Type 2 diabetes [id number]-Kcoer with sliding scale insulin. Oral regimen on hold. 10. Hypertension-continue metoprolol. 11. History of non-Hodgkin's lymphoma 12. History of rheumatoid arthritis- not on regimen. 13. Tobacco dependence-encouraged cessation. 14. Chronic microcytic anemia/iron deficiency-stable, continue iron supplementation. 15. Severe protein calorie malnutrition secondary to acute illness and inadequate oral intake with recent weight loss. Follow dietary supplement per dietitian recommendation. 16. Questionable ileus-General surgery following. Clear liquids. Denies nausea, vomiting. Denies abdominal pain. Dulcolax suppository. DVT prophylaxis- Lovenox sc This patient was seen by Luz Boyd NP-C under the supervision of Dr. Rosas. Discharge plan: TCU when medically stable Time spent examining patient, reviewing data and subsequent management of care: 14 Minutes Documented by User: Dr. Suze Rosas MD 04/24/21 13:52 Objective Data Lab / Micro Data Result Diagrams: 04/24/21 05:39 04/24/21 05:39 Charges/Coding Addendum Addendum: This patient was seen in conjunction with Luz Boyd NP. I have independently interviewed and examined the patient and reviewed pertinent historical, laboratory, and other data. I have reviewed her note and concur with her documentation Patient was seen and examined. His was at the bedside. Multiple questions were answered. Patient and would like to be discharged to subacute care as stated she cannot take care of the patient. Patient stated that he has constipation, and some shortness of breath. Vitals reviewed. Currently on 5 L of oxygen. He denied any fever or chills. BP is 102/56, heart rate 86, temperature 99.8 F, SPO2 93% on 5 L Physical Exam: Gen: Comfortable, not pale, not jaundiced, slightly in respiratory distress, 5 L of oxygen CVS:HS I +II, regular, no murmurs RESP: Diminished at lung bases GI: BS present and normal, soft, nontender, no palpable organs EXT:No edema ASSESSMENT: 1. Acute on chronic respiratory failure 2. Acute bilateral PE 3. Bilateral pneumonia 4. COPD/asthma 5. Debility 6. Acute metabolic encephalopathy 7. CAD status post stent 8. Type II DM 9. Hypertension 10. History of non-Hodgkin's lymphoma 11. Rheumatoid arthritis 12. Nicotine dependence 13. Recent COVID-19 infection Plan: Continue to wean off oxygen Continue therapeutic Lovenox, breathing treatments Continue IV antibiotics Discharge planning Time spent coordinating patient's care, discussing with subspecialty and nursin minutes Visit Charges Inpatient E&M: 52524 Subs Hosp L3
[2021-04-23 17:01] LABS: Bedside Glucose 278 mg/dL (70-110)
[2021-04-23] MEDS: Glucerna Shake 120 ML LIQUID PO (22:18)
[2021-04-23] MEDS: Atorvastatin Calcium 40 MG Tablet PO (22:19)
[2021-04-23] MEDS: Menthol/Lanolin/Calamine/Znox 113 GM Tube 1 APPLIC TOPICAL (22:23)
[2021-04-23] MEDS: 0.9% Saline Lock 10 ML Syringe IV (22:24)
[2021-04-23 22:35] LABS: Bedside Glucose 301 mg/dL (70-110)
[2021-04-24] VITALS (20 sets, daily range): BP systolic 96–132; BP diastolic 53–67; PULSE 71–110; RESP 16–24; TEMP 37.1–38.3; O2SAT 92–96
[2021-04-24 00:08] LABS: Vancomycin, Trough Level 21.6 ug/mL (5.0-15.0)
--- NOTE | 2021-04-24 01:12 | PCM.RX.CS ---
Consult Pharmacy has been consulted to manage selected antiobiotic: Vancomycin Type of Consult: Follow-up Suspected Infection: Pneumonia Labs: Sodium 138 mmol/L (136-145) 04/23/21 05:14 Potassium 3.8 mmol/L (3.5-5.1) 04/23/21 05:14 Chloride 107 mmol/L (98-107) 04/23/21 05:14 Carbon Dioxide 25.0 mmol/L (21.0-32.0) 04/23/21 05:14 Anion Gap 6 (5-15) 04/23/21 05:14 BUN 24 mg/dL (7-18) H 04/23/21 05:14 Creatinine 0.60 mg/dL (0.70-1.30) L 04/23/21 05:14 Est GFR (MDRD) Af Amer 172 mL/min (>60) 04/23/21 05:14 Est GFR (MDRD) Non-Af 142 mL/min (>60) 04/23/21 05:14 BUN/Creatinine Ratio 40.3 RATIO (10-20) H 04/23/21 05:14 Glucose 144 mg/dL (74-106) H 04/23/21 05:14 Vancomycin Trough 21.6 ug/mL (5.0-15.0) H 04/23/21 23:16 Microbiology: Microbiology 04/21/21 16:56 Urine Catheter - Catheter Urine Culture - Preliminary Yeast, not Elisha albicans Gram positive organism 04/22/21 22:40 Sputum, Expectorated/Coughed Gram Stain - Final 04/22/21 12:40 Mucosa - Nasopharyngeal Respiratory Panel (PCR) - Final Rhinovirus 04/21/21 16:56 Urine Catheter - Catheter Legionella Antigen - Final 04/21/21 16:56 Urine Catheter - Catheter Streptococcus pneumoniae Antigen (M - Final Goal Trough: 15-20 mcg/mL Pharmacy Plan for Drug Dosing: Pharmacy Service will continue to monitor and adjust dosing as required. TROUGH 21.6. D/C CURRENT DOSE AND DRAW RANDOM TROUGH IN 18 HRS Follow-Up Labs: Trough Vancomycin Labs to be done on [date and time ordered]: 04/24 @ 9612
[2021-04-24] MEDS: Acetaminophen 325 MG Tablet 650 MG PO (05:17)
[2021-04-24] MEDS: Enoxaparin 100 MG/ML Syringe 90 MG SC ×2 (05:19→17:05)
[2021-04-24 05:50] LABS: Absolute Lymphocyte Count 0.53 X10^3/uL (0.83-4.51); Absolute Neutrophil Count 5.2 X10^3/uL (2.0-7.7); Eosinophil# 0.07 X10^3/uL; Eosinophils% 1.1 % (0-5); Hematocrit 29.9 % (40-54); Hemoglobin 9.9 g/dL (13.0-16.5); Lymphocyte # 0.53 X10^3/ul (0.83-4.51); Lymphocyte % 8.3 % (19-41); Mean Corp Hgb Conc 33.1 g/dL (32-36); Mean Corpuscular Hgb 26.1 pg (27.0-32.0); Mean Corpuscular Volume 78.9 fL (80-94); Mean Platelet Vol. 10.6 fl (6.2-12.0); Monocyte# 0.45 X10^3/uL; Monocyte% 7.1 % (0-10); NRBC Flagged by Analyzer 0 % (0-5); Neutrophil # 5.19 X10^3/uL (2.7-7.7); Neutrophil % 81.8 % (47-70); POSITIVE DIFFERENTIAL YES; Platelet Count 197 K/mm3 (150-450); RBC Distribution Width CV 15.9 % (11.6-14.6); RBC Distribution Width SD 45.4 fl (35.1-43.9); Red Blood Count 3.79 M/mm3 (4.6-6.2); White Blood Count 6.4 K/mm3 (4.4-11.0)
[2021-04-24 06:06] LABS: Differential Indicated SCAN CRITERIA MET
[2021-04-24 06:33] LABS: Differential Comment SCANNED
[2021-04-24 06:35] LABS: Anion Gap 8 (5-15); BUN 24 mg/dL (7-18); BUN/Creat Ratio 24.2 RATIO (10-20); Calcium,Total 7.9 mg/dL (8.5-10.1); Chloride 107 mmol/L (98-107); Creatinine, Serum 0.99 mg/dL (0.70-1.30); EST Glomerular Filtration Rate 79 mL/min (>60); Est Glom Filt Rate - Afr Amer 96 mL/min (>60); Estimated Creatinine Clearance 70.66 ml/min; Glucose 101 mg/dL (74-106); Potassium 3.8 mmol/L (3.5-5.1); Sodium Level 139 mmol/L (136-145)
[2021-04-24] MEDS: Ipratropium/Albuterol Sulfate 3 ML AMPUL.NEB INHALATION ×4 (06:54→19:34)
[2021-04-24 06:55] LABS: Bedside Glucose 121 mg/dL (70-110)
--- NOTE | 2021-04-24 07:06 | PCM.PN.INT ---
Assessment & Plan Assessment/Plan (1) Acute alteration in mental status: (2) Hypoxemia: (3) Nicotine dependence, cigarettes, uncomplicated: (4) Diabetes: (5) Non-Hodgkin lymphoma: (6) RA (rheumatoid arthritis): QUALIFIERS: Rheumatoid factor presence: unspecified presence Laterality: unspecified laterality (7) Pulmonary embolism: PLAN: RECOMMENDATIONS: 1. Continue anticoagulation 2. Consider continuing prednisone taper as previously prescribed 3. Await final urine culture prior to discontinuation of antibiotics 4. Challenge with diuretics as tolerated. Supplement potassium if needed 5. Wean oxygen as tolerated. Walking oximetry prior to discharge 6. Potential discharge if able to ambulate on 6 L or less IMPRESSIONS: 1. Acute on chronic hypoxic respiratory insufficiency with recent COVID-19, rhinovirus and PE in the setting of COPD/asthma overlap syndrome Patient does have groundglass opacities noted on CTA of the chest. This appears to be slightly worse compared to previous CT earlier in the month. This may be secondary to rhinovirus. Unclear if this is residual from previous COVID-19 versus a secondary process. Patient is immunosuppressed at baseline secondary to rheumatoid arthritis, so may not have a significant leukocytosis. Clinical suspicion for worsening oxygenation status secondary to PE. Patient does have significant immobility, recent COVID-19 infection and clinical dehydration on presentation, increasing risk for PE. Likely okay to transition to 10 a inhibitor and treat for a minimum of 6 months. Okay to continue with antibiotics until cultures negative. 2. Acute metabolic encephalopathy Improving. Clinical suspicion that this is secondary to hypoxia and UTI. Delirium secondary to respiratory etiology would also be a consideration. We will continue to monitor. 3. Acute UTI secondary to gram-positive bacteria Patient was significant fever overnight, but appears to be growing gram-positive cocci in the urine. Patient is on vancomycin with therapeutic levels. Await species and sensitivities prior to narrowing antibiotic spectrum as patient has had multiple rounds of antibiotics recently. Patient has had hyperglycemia, but there does not appear to be any endorgan damage to indicate sepsis. Recent echo showed aortic valve stenosis, but no vegetations. 4. Coronary artery disease status post stents/type 2 diabetes mellitus/hypertension/history of RA/history of lymphoma/tobacco dependence Complicates care, management, recovery and prognosis. Will need to watch blood sugars closely given steroids using for problem #1. Blood pressures appear to be relatively controlled at this time. Continue current medications. Patient can be offered nicotine replacement if necessary. Did confirm with the patient that he is a full code. Subjective Subjective Patient did okay overnight. No acute issues were reported outside of a fever that was tolerated hemodynamically. Patient still remains on 4 L nasal cannula, but saturations are improving. Patient is not reporting any significant change in cough. No bleeding has been reported. Objective Data Objective Data Vital Signs: Vital Signs Temp Pulse Resp BP Pulse Ox 37.1 C 83 18 96/54 L 93 04/24/21 06:42 04/24/21 07:04 04/24/21 07:04 04/24/21 06:42 04/24/21 06:55 Oxygen Flow Rate (L/min) 2 Oxygen Delivery Method Nasal Cannula Weight: 90.1 kg Body Mass Index (BMI) 27.7 Intake & Output: Intake and Output for Last 24 Hours 04/22/21 04/23/21 04/24/21 23:59 23:59 23:59 Intake Total 1571.83 / 1571.83 1644.25 / 1644.25 580 / 580 Output Total 0 / 0 Balance 1571.83 / 1571.83 1644.25 / 1644.25 580 / 580 Medical Nutrition Assessment Dietitian: Malnutrition Criteria Met Start: 04/22/21 13:14 Freq: Status: Active Protocol: Document 04/22/21 13:14 AG (Rec: 04/22/21 13:14 [id number]) Nutrition Malnutrition Evidence of Malnutrition Exists Yes Malnutrition (severe): Acute Illness/Injury Evidenced By Suboptimal Energy Intake ( Severe),Weight Loss (Severe) Clinical Problem Acute Disease or Injury Related Malnutrition Etiology severe, acute malnutrition r/t inadequate energy intake w/ acute illness Signs/Symptoms as evidenced by unintentional wt loss of 20.5#/9.4% x 1 month, estimated PO intake meeting <75% of estimated energy needs x 1 month Status Active Problem Recommendation Dietitian Recommendations/Changes will liberalize diet to regular given severe malnutrition; continue 120mL glucerna ONS w/ medpass for additional calories/protein if consumed. Lab / Micro Data Result Diagrams: 04/24/21 05:39 04/24/21 05:39 Labs: Laboratory Results - last 24 hr 04/23/21 05:14: Magnesium 1.7 04/23/21 11:26: POC Glucose 206 H 04/23/21 16:47: POC Glucose 278 H 04/23/21 22:20: POC Glucose 301 H 04/23/21 23:16: Vancomycin Trough 21.6 H 04/24/21 05:39: WBC 6.4, RBC 3.79 L, Hgb 9.9 L, Hct 29.9 L, MCV 78.9 L, MCH 26.1 L, MCHC 33.1, RDW Std Deviation 45.4 H, RDW Coeff of Rafael 15.9 H, Plt Count 197, MPV 10.6, Immature Gran % (Auto) 1.700 H, Neut % (Auto) 81.8 H, Lymph % (Auto) 8.3 L, [place] % (Auto) 7.1, Eos % (Auto) 1.1, Baso % (Auto) 0.0, Absolute Neuts (auto) 5.2, Absolute Lymphs (auto) 0.53 L, Nucleated RBC % 0, Differential Comment SCANNED 04/24/21 05:39: Sodium 139, Potassium 3.8, Chloride 107, Carbon Dioxide 24.0, Anion Gap 8, BUN 24 H, Creatinine 0.99, Estim Creat Clear Calc 70.66, Est GFR (MDRD) Af Amer 96, Est GFR (MDRD) Non-Af 79, BUN/Creatinine Ratio 24.2 H, Glucose 101, Calcium 7.9 L 04/24/21 06:41: POC Glucose 121 H Micro: Microbiology 04/21/21 16:56 Urine Catheter - Catheter Urine Culture - Preliminary Yeast, not Elisha albicans Gram positive organism 04/22/21 22:40 Sputum, Expectorated/Coughed Gram Stain - Final 04/22/21 12:40 Mucosa - Nasopharyngeal Respiratory Panel (PCR) - Final Rhinovirus 04/21/21 16:56 Urine Catheter - Catheter Legionella Antigen - Final 04/21/21 16:56 Urine Catheter - Catheter Streptococcus pneumoniae Antigen (M - Final Radiography Diagnostic Testing: Radiology Impression Echocardiogram 04/23/21 05:55 Interpretation Summary Normal LV size. Left ventricular systolic function is normal. The estimated ejection fraction is 65 %. Stage 1 diastolic dysfunction. Mean aortic valve gradient 9 mmHg. Mild aortic stenosis. Contrast injection was performed. Ordering Physician: Clive Sharp Referring Physician: Donna Will M.D. Performed By: Bijal Mahajan RDCS Rhythm Strip Rhythm Strip: Sinus Rhythm Rate: 81 Ectopy: PAC(s) Physical Exam Const alert and no apparent distress Constitutional Narrative: Initially sleeping, lying in bed on my examination. No conversational dyspnea. Slightly more appropriate today Orientation / Consciousness: confused HEENT normocephalic and moist oral mucous membranes Eyes PERRL, EOMs intact bilaterally and conjunctivae normal Neck no lymphadenopathy Chest Chest: abnormal inspection of the chest increased A-P diameter; Negative for crepitus Resp Auscultation: diminished lung sounds; Negative for rales, rhonchi or wheezes Cardio regular rate, regular rhythm and no murmurs Peripheral Pulses: pulses 2+ throughout GI normal to inspection, nondistended, normoactive bowel sounds, non-tender and non-distended Extremity normal to inspection General Extremity: edema bilateral (2+) lower extremity; Negative for clubbing or cyanosis Skin no rashes or lesions noted Lesions: no lesions Rashes: no rashes Trauma: no lacerations or abrasions Neuro CN's II-XII intact bilaterally, no focal motor deficits, no sensory deficits noted and deep tendon reflexes 2+ bilaterally Psych mental status grossly normal and affect normal Charges/Coding Visit Charges Inpatient E&M: 20552 Subs Hosp L2
[2021-04-24] MEDS: Ferrous Sulfate 325 MG Tablet PO ×2 (09:10→17:05)
[2021-04-24] MEDS: Aspirin E.C. 81 MG Tablet PO (09:10)
--- NOTE | 2021-04-24 09:40 | PCM.PN.HOSP ---
Objective Data Objective Data Vital Signs: Vital Signs Temp Pulse Resp BP Pulse Ox 99.3 F H 85 16 114/58 L 94 04/24/21 09:03 04/24/21 09:03 04/24/21 09:03 04/24/21 09:03 04/24/21 09:03 Oxygen Flow Rate (L/min) 2 Oxygen Delivery Method Nasal Cannula Weight: 90.1 kg Body Mass Index (BMI) 27.7 Intake & Output: Intake and Output for Last 24 Hours 04/22/21 04/23/21 04/24/21 23:59 23:59 23:59 Intake Total 1571.83 / 1571.83 1644.25 / 1644.25 580 / 580 Output Total 0 / 0 Balance 1571.83 / 1571.83 1644.25 / 1644.25 580 / 580 Medical Nutrition Assessment Dietitian: Malnutrition Criteria Met Start: 04/22/21 13:14 Freq: Status: Active Protocol: Document 04/22/21 13:14 AG (Rec: 04/22/21 13:14 [id number]) Nutrition Malnutrition Evidence of Malnutrition Exists Yes Malnutrition (severe): Acute Illness/Injury Evidenced By Suboptimal Energy Intake ( Severe),Weight Loss (Severe) Clinical Problem Acute Disease or Injury Related Malnutrition Etiology severe, acute malnutrition r/t inadequate energy intake w/ acute illness Signs/Symptoms as evidenced by unintentional wt loss of 20.5#/9.4% x 1 month, estimated PO intake meeting <75% of estimated energy needs x 1 month Status Active Problem Recommendation Dietitian Recommendations/Changes will liberalize diet to regular given severe malnutrition; continue 120mL glucerna ONS w/ medpass for additional calories/protein if consumed. Lab / Micro Data Result Diagrams: 04/24/21 05:39 04/24/21 05:39 Labs: Laboratory Results - last 24 hr 04/23/21 05:14: Magnesium 1.7 04/23/21 11:26: POC Glucose 206 H 04/23/21 16:47: POC Glucose 278 H 04/23/21 22:20: POC Glucose 301 H 04/23/21 23:16: Vancomycin Trough 21.6 H 04/24/21 05:39: WBC 6.4, RBC 3.79 L, Hgb 9.9 L, Hct 29.9 L, MCV 78.9 L, MCH 26.1 L, MCHC 33.1, RDW Std Deviation 45.4 H, RDW Coeff of Rafael 15.9 H, Plt Count 197, MPV 10.6, Immature Gran % (Auto) 1.700 H, Neut % (Auto) 81.8 H, Lymph % (Auto) 8.3 L, [place] % (Auto) 7.1, Eos % (Auto) 1.1, Baso % (Auto) 0.0, Absolute Neuts (auto) 5.2, Absolute Lymphs (auto) 0.53 L, Nucleated RBC % 0, Differential Comment SCANNED 04/24/21 05:39: Sodium 139, Potassium 3.8, Chloride 107, Carbon Dioxide 24.0, Anion Gap 8, BUN 24 H, Creatinine 0.99, Estim Creat Clear Calc 70.66, Est GFR (MDRD) Af Amer 96, Est GFR (MDRD) Non-Af 79, BUN/Creatinine Ratio 24.2 H, Glucose 101, Calcium 7.9 L 04/24/21 06:41: POC Glucose 121 H Micro: Microbiology 04/22/21 22:40 Sputum, Expectorated/Coughed Gram Stain - Final 04/22/21 22:40 Sputum, Expectorated/Coughed Respiratory Culture - Preliminary Appears to be normal respiratory domenico. Further studies to follow. 04/22/21 11:08 Blood Culture (Wb) - Anticubital Right Blood Culture - Preliminary No growth in 48 hours. 04/22/21 11:00 Blood Culture (Wb) - Left Forearm Blood Culture - Preliminary No growth in 48 hours. 04/21/21 16:56 Urine Catheter - Catheter Urine Culture - Preliminary Yeast, not Elisha albicans Gram positive organism 04/22/21 12:40 Mucosa - Nasopharyngeal Respiratory Panel (PCR) - Final Rhinovirus 04/21/21 16:56 Urine Catheter - Catheter Legionella Antigen - Final 04/21/21 16:56 Urine Catheter - Catheter Streptococcus pneumoniae Antigen (M - Final Radiography Diagnostic Testing: Radiology Impression Echocardiogram 04/23/21 05:55 Interpretation Summary Normal LV size. Left ventricular systolic function is normal. The estimated ejection fraction is 65 %. Stage 1 diastolic dysfunction. Mean aortic valve gradient 9 mmHg. Mild aortic stenosis. Contrast injection was performed. Ordering Physician: Clvie Sharp Referring Physician: Donna Will M.D. Performed By: Bijal Mahajan RDCS Rhythm Strip Rhythm Strip: Sinus Rhythm Rate: 81 Ectopy: PAC(s)
--- NOTE | 2021-04-24 09:43 | CASEMGMT ---
Addendum entered by Brittani Hernandez 04/24/21 15:45: TYE checked with Rosanna with TCU, pre-cert is still pending. Original Note: Social Work Note Pt is medically ready for discharge once pre-cert is obtained. TYE placed a call to Rosanna with TCU and left message updating her. Plan: TCU pending pre-cert Brittani Hernandez TRAVELING PASSENGER AGENT, TURN MACHINE OPERATOR
--- NOTE | 2021-04-24 10:05 | PCM.CONS.P ---
Assessment & Plan Assessment/Plan (1) Physical debility: (2) Acute on chronic respiratory failure with hypoxemia: (3) FTT (failure to thrive) in adult: (4) Pulmonary embolism: (5) Tobacco use: (6) History of non-Hodgkin's lymphoma: PLAN: 70-year-old with previous COVID-19, presented with severe weakness after multiple presentations to the ED and acute on chronic hypoxemic respiratory failure, seen today for palliative care consultation due to his debility, FTT, and dyspnea. 1. Debility and weakness: Patient is now agreeable to go to the TCU when medically stable for further rehab. He is quite weak and has had a prolonged illness. We will continue to follow him in TCU. Patient and are interested in services. Patient would benefit from supportive management when he is discharged. We would follow him closely as an outpatient and attempt to improve his symptoms, avoid hospitalization if possible, and improve overall quality of life. 2. Failure to thrive: Again, prolonged illness. Very poor appetite. Dietitian is following him here in the hospital. He has had about a 30 pound weight loss in the last 6 months. 3. Acute on chronic hypoxemic respiratory failure/PE/current tobacco use, history of non-Hodgkin's lymphoma/CAD/hyperlipidemia/asthma/JO ANN/type 2 diabetes: Complicates overall care, management, recovery, and prognosis. Thank you for the opportunity to participate in this patient's care, please do not hesitate to contact. [facility] palliative with any further questions or concerns. Palliative direct line is [phone]. I did explain services to patient and who was present during my visit, they would like to speak with the liaison and get more information and brochures. Otherwise, they are agreeable to services. Greater than 50% of F2F visit dedicated to education and counseling of palliative care services, medications, comorbid conditions and potential assistance with management, and plan of care moving forward. Also discussed with attending. Start time: 1000 End time: 1047 HPI Consult Data Date of Consult: 04/24/21 HPI Narrative HPI Narrative: SAL ALONZO, is a 70 M who presented to [facility] 04/21/2021 after being discharged 04/11 following an admission for COPD exacerbation secondary to acute rhinoviral illness, presented with weakness, failure to thrive, and difficulty performing ADLs at home. He has been to the ED 5 times since February 2021. He had had for Covid but has continued to refuse half-way placement for rehab and strengthening. Vitals were stable in the ED and he was on room air. His white count was around 10,000, hemoglobin 10.4, platelets 267 with left shift and lymphopenia. He did have recent steroid taper with last hospitalization. His glucose was quite elevated in the 400s. Chest x-ray had nothing acute. He was admitted for further evaluation and management. The patient has a history of non-Hodgkin's lymphoma and rheumatoid arthritis. He is a current smoker. During his hospitalization, patient has had intermittent temps and required a Ventimask at 1 point. Echocardiogram showed normal LV systolic function, estimated EF of 65%, stage I diastolic dysfunction, mild aortic stenosis. Sputum culture was obtained and is pending. Surgical consult was obtained 04/23 due to abdominal x-ray which showed mild gaseous distention of the small bowel and moderate stool throughout the colon suggestive of constipation or ileus. Surgery did not feel there was anything surgical going on and for patient to remain on clear to full liquids only and encourage ambulation. Patient was also seen by pulmonary. A CTA of the chest showed groundglass opacities slightly worse compared to CT earlier in the month, multiple bilateral PEs and increased bilateral pneumonia, 6 mm right middle lobe pulmonary nodule. Pulmonary recommended continuing prednisone taper as previously prescribed, challenge with diuretics, and potential discharge if able to ambulate on 6 L or less. Patient is currently on 2 L of oxygen at rest. Temp this morning 99.3 ?F. His blood pressure is stable. Patient denies any current dyspnea or chest pain. Denies dizziness or syncope. Denies any falls at home, however in room and states he fell outside prior to coming to the hospital. There is no significant injury. He does feel very weak and like his legs are going to give out at times. He gets fatigued very easily. His appetite is very poor. In September 2020 he was up to 103.8 kg, currently 90.1 kg, which is about a 30 pound weight loss. He acknowledges that he is unable to manage at home and continues to come back to the ED for help. Denies any N/V/D. No abdominal pain. Has a little bit of lower extremity edema. He has been agreeable to go to the transitional care unit for further rehab and strengthening. Patient and interested in palliative services and would like more information. We will continue to follow him in TCU and as an outpatient. [facility] Medical History Allergic rhinitis Arthritis Asthma Atherosclerosis of coronary artery of [place] heart without angina pectoris Bronchitis Cancer Chronic bronchitis Colon polyp COPD (chronic obstructive pulmonary disease) COVID-19 COVID-19 in immunocompromised patient Diabetes Gastritis History of basal cell carcinoma History of diabetes mellitus, type II History of non-Hodgkin's lymphoma History of pilonidal cyst Hyperlipidemia Hypertension Iron deficiency anemia Iron deficiency anemia Lab test negative for COVID-19 virus Nicotine dependence, cigarettes, uncomplicated Non-Hodgkin lymphoma Obesity Pneumonia Pneumonia due to COVID-19 virus Positive colorectal cancer screening using Cologuard test RA (rheumatoid arthritis) Tobacco use URI (upper respiratory infection) 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 complications Home Medications aspirin 81 mg tablet,delayed release 81 mg PO DAILY 09/28/19 [History Last Taken Unknown] cholecalciferol (vitamin D3) 25 mcg (1,000 unit) capsule 25 mcg PO DAILY 07/17/20 [History Last Taken Unknown] ferrous sulfate 325 mg (65 mg iron) tablet 325 mg PO BID #60 tab 07/18/20 [Rx Last Taken Unknown] metoprolol tartrate 25 mg tablet 25 mg PO BID #180 tab 09/12/20 [Rx Last Taken Unknown] nitroglycerin 0.4 mg sublingual tablet 0.4 mg SUBLINGUAL Q5M PRN #30 tab 09/25/20 [Rx Last Taken Unknown] cyanocobalamin (vitamin B-12) 1,000 mcg capsule 1,000 mcg PO DAILY 01/29/21 [History Last Taken Unknown] glimepiride 2 mg tablet 2 mg PO DAILY #90 tab 01/29/21 [Rx Last Taken Unknown] metformin 500 mg tablet 500 mg PO BID #180 tab 01/29/21 [Rx Last Taken Unknown] albuterol sulfate 2 puff INHALATION Q6H PRN #6.7 g 04/11/21 [Rx Last Taken Unknown] prednisone See Taper PO DAILY #30 tab 04/11/21 [Rx Last Taken Unknown] atorvastatin 40 mg PO QHS 04/21/21 [History Last Taken Unknown] Allergy/AdvReac Type Severity Reaction Status Date / Time famotidine [From Pepcid] AdvReac Intermediate Diarrhea Verified 04/21/21 14:29 levofloxacin [From Levaquin] AdvReac Intermediate dizziness Verified 04/21/21 14:29 Family History Father Arthritis Bleeding disorder Hypertension Kidney disease Cancer Skin Anemia blood clots Emphysema lung Mother Colon cancer Cancer Lung Cancer Diabetes Brother Thyroid disorder Surgical History History of coronary artery stent placement (~10/22/13) History of excision of pilonidal cyst History of thymectomy Hx of lymph node excision Social History household members: spouse Smoking Status: Former smoker second hand exposure: Yes quit status: considering quitting alcohol intake: current alcohol intake frequency: holidays/special occasions only substance use type: does not use caffeine: Yes Type: coffee Number of servings: 3 what type of physical activity do you participate in: none frequency: does not exercise seatbelt use: always ROS ROS Narrative Review of systems otherwise negative from a constitutional, HEENT, respiratory, cardiovascular, GI, genitourinary, musculoskeletal, skin, neurologic, psychiatric and hematologic system unless stated above. Physical Exam Const alert and oriented x3 General Appearance: cooperative and ill appearing HEENT normocephalic and head/scalp atraumatic Neck supple General: trachea midline Resp Resp Narrative: Somewhat labored breathing with minimal exertion Effort and Inspection: symmetric chest movement Auscultation: rales and diminished lung sounds; Negative for rhonchi or wheezes Cardio regular rate, regular rhythm, S1 normal heart sound and S2 normal heart sound GI normal to inspection, nondistended, normoactive bowel sounds Extremity General Extremity: edema bilateral lower extremity Details: mild; Negative for clubbing or cyanosis Skin no rashes or lesions noted Skin Narrative: Skin is very pale, some bruising to the arms Neuro CN's II-XII intact bilaterally and no focal motor deficits Psych Attitude: calm and engaged Activity / Motor Behavior: appropriate eye contact Speech: normal speech Mood & Affect: flat affect
--- NOTE | 2021-04-24 11:02 | PN.SURG_ITS ---
Subjective Subjective No complaints of abdominal pain today. Objective Data Objective Data Abdomen is soft Vital Signs: Vital Signs Temp Pulse Resp BP Pulse Ox 99.3 F H 85 16 114/58 L 94 04/24/21 09:03 04/24/21 09:03 04/24/21 09:03 04/24/21 09:03 04/24/21 09:03 Oxygen Flow Rate (L/min) 2 Oxygen Delivery Method Nasal Cannula Weight: 198 lb 10.184 oz Body Mass Index (BMI) 27.7 Intake & Output: Intake and Output for Last 24 Hours 04/22/21 04/23/21 04/24/21 23:59 23:59 23:59 Intake Total 1571.83 / 1571.83 1644.25 / 1644.25 580 / 580 Output Total 0 / 0 Balance 1571.83 / 1571.83 1644.25 / 1644.25 580 / 580 Medical Nutrition Assessment Dietitian: Malnutrition Criteria Met Start: 04/22/21 13:14 Freq: Status: Active Protocol: Document 04/22/21 13:14 AG (Rec: 04/22/21 13:14 [id number]) Nutrition Malnutrition Evidence of Malnutrition Exists Yes Malnutrition (severe): Acute Illness/Injury Evidenced By Suboptimal Energy Intake ( Severe),Weight Loss (Severe) Clinical Problem Acute Disease or Injury Related Malnutrition Etiology severe, acute malnutrition r/t inadequate energy intake w/ acute illness Signs/Symptoms as evidenced by unintentional wt loss of 20.5#/9.4% x 1 month, estimated PO intake meeting <75% of estimated energy needs x 1 month Status Active Problem Recommendation Dietitian Recommendations/Changes will liberalize diet to regular given severe malnutrition; continue 120mL glucerna ONS w/ medpass for additional calories/protein if consumed. Lab / Micro Data Result Diagrams: 04/24/21 05:39 04/24/21 05:39 Labs: Laboratory Results - last 24 hr 04/23/21 05:14: Magnesium 1.7 04/23/21 11:26: POC Glucose 206 H 04/23/21 16:47: POC Glucose 278 H 04/23/21 22:20: POC Glucose 301 H 04/23/21 23:16: Vancomycin Trough 21.6 H 04/24/21 05:39: WBC 6.4, RBC 3.79 L, Hgb 9.9 L, Hct 29.9 L, MCV 78.9 L, MCH 26.1 L, MCHC 33.1, RDW Std Deviation 45.4 H, RDW Coeff of Rafael 15.9 H, Plt Count 197, MPV 10.6, Immature Gran % (Auto) 1.700 H, Neut % (Auto) 81.8 H, Lymph % (Auto) 8.3 L, [place] % (Auto) 7.1, Eos % (Auto) 1.1, Baso % (Auto) 0.0, Absolute Neuts (auto) 5.2, Absolute Lymphs (auto) 0.53 L, Nucleated RBC % 0, Differential Comment SCANNED 04/24/21 05:39: Sodium 139, Potassium 3.8, Chloride 107, Carbon Dioxide 24.0, Anion Gap 8, BUN 24 H, Creatinine 0.99, Estim Creat Clear Calc 70.66, Est GFR (MDRD) Af Amer 96, Est GFR (MDRD) Non-Af 79, BUN/Creatinine Ratio 24.2 H, Glucose 101, Calcium 7.9 L 04/24/21 06:41: POC Glucose 121 H Micro: Microbiology 04/22/21 22:40 Sputum, Expectorated/Coughed Gram Stain - Final 04/22/21 22:40 Sputum, Expectorated/Coughed Respiratory Culture - Preli minary Appears to be normal respiratory domenico. Further studies to follow. 04/22/21 11:08 Blood Culture (Wb) - Anticubital Right Blood Culture - Preliminary No growth in 48 hours. 04/22/21 11:00 Blood Culture (Wb) - Left Forearm Blood Culture - Preliminary No growth in 48 hours. 04/21/21 16:56 Urine Catheter - Catheter Urine Culture - Preliminary Yeast, not Elisha albicans Gram positive organism 04/22/21 12:40 Mucosa - Nasopharyngeal Respiratory Panel (PCR) - Final Rhinovirus 04/21/21 16:56 Urine Catheter - Catheter Legionella Antigen - Final 04/21/21 16:56 Urine Catheter - Catheter Streptococcus pneumoniae Antigen (M - Final Radiography Diagnostic Testing: Radiology Impression Echocardiogram 04/23/21 05:55 Interpretation Summary Normal LV size. Left ventricular systolic function is normal. The estimated ejection fraction is 65 %. Stage 1 diastolic dysfunction. Mean aortic valve gradient 9 mmHg. Mild aortic stenosis. Contrast injection was performed. Ordering Physician: Clive Sharp Referring Physician: Donna Will M.D. Performed By: Bijal Mahajan RDCS Rhythm Strip Rhythm Strip: Sinus Rhythm Rate: 81 Ectopy: PAC(s) Assessment & Plan Assessment/Plan (1) Ileus: PLAN: We will sign off at this time.
[2021-04-24 11:30] LABS: Bedside Glucose 123 mg/dL (70-110)
--- NOTE | 2021-04-24 13:13 | PCM.PN.HOSP ---
Documented by User: Luz Boyd NP, [employer] 04/24/21 13:21 Subjective Subjective Patient seen and examined. States he feels significantly improved. Reports several bowel movements overnight. Denies further abdominal pain. Shortness of breath improved. Now on 2 L nasal cannula. Denies fever, chills. Objective Data Objective Data Vital Signs: Vital Signs Temp Pulse Resp BP Pulse Ox 99.3 F H 97 18 114/58 L 96 04/24/21 09:03 04/24/21 11:36 04/24/21 11:36 04/24/21 09:03 04/24/21 11:38 Oxygen Flow Rate (L/min) 2 Oxygen Delivery Method Nasal Cannula Weight: 198 lb 10.184 oz Body Mass Index (BMI) 27.7 Intake & Output: Intake and Output for Last 24 Hours 04/22/21 04/23/21 04/24/21 23:59 23:59 23:59 Intake Total 1571.83 / 1571.83 1644.25 / 1644.25 580 / 580 Output Total 0 / 0 Balance 1571.83 / 1571.83 1644.25 / 1644.25 580 / 580 Medical Nutrition Assessment Dietitian: Malnutrition Criteria Met Start: 04/22/21 13:14 Freq: Status: Active Protocol: Document 04/22/21 13:14 AG (Rec: 04/22/21 13:14 [id number]) Nutrition Malnutrition Evidence of Malnutrition Exists Yes Malnutrition (severe): Acute Illness/Injury Evidenced By Suboptimal Energy Intake ( Severe),Weight Loss (Severe) Clinical Problem Acute Disease or Injury Related Malnutrition Etiology severe, acute malnutrition r/t inadequate energy intake w/ acute illness Signs/Symptoms as evidenced by unintentional wt loss of 20.5#/9.4% x 1 month, estimated PO intake meeting <75% of estimated energy needs x 1 month Status Active Problem Recommendation Dietitian Recommendations/Changes will liberalize diet to regular given severe malnutrition; continue 120mL glucerna ONS w/ medpass for additional calories/protein if consumed. Lab / Micro Data Result Diagrams: 04/24/21 05:39 04/24/21 05:39 Labs: Laboratory Results - last 24 hr 04/23/21 16:47: POC Glucose 278 H 04/23/21 22:20: POC Glucose 301 H 04/23/21 23:16: Vancomycin Trough 21.6 H 04/24/21 05:39: WBC 6.4, RBC 3.79 L, Hgb 9.9 L, Hct 29.9 L, MCV 78.9 L, MCH 26.1 L, MCHC 33.1, RDW Std Deviation 45.4 H, RDW Coeff of Rafael 15.9 H, Plt Count 197, MPV 10.6, Immature Gran % (Auto) 1.700 H, Neut % (Auto) 81.8 H, Lymph % (Auto) 8.3 L, [place] % (Auto) 7.1, Eos % (Auto) 1.1, Baso % (Auto) 0.0, Absolute Neuts (auto) 5.2, Absolute Lymphs (auto) 0.53 L, Nucleated RBC % 0, Differential Comment SCANNED 04/24/21 05:39: Sodium 139, Potassium 3.8, Chloride 107, Carbon Dioxide 24.0, Anion Gap 8, BUN 24 H, Creatinine 0.99, Estim Creat Clear Calc 70.66, Est GFR (MDRD) Af Amer 96, Est GFR (MDRD) Non-Af 79, BUN/Creatinine Ratio 24.2 H, Glucose 101, Calcium 7.9 L 04/24/21 06:41: POC Glucose 121 H 04/24/21 11:21: POC Glucose 123 H Micro: Microbiology 04/22/21 22:40 Sputum, Expectorated/Coughed Gram Stain - Final 04/22/21 22:40 Sputum, Expectorated/Coughed Respiratory Culture - Preliminary Appears to be normal respiratory domenico. Further studies to follow. 04/22/21 11:08 Blood Culture (Wb) - Anticubital Right Blood Culture - Preliminary No growth in 48 hours. 04/22/21 11:00 Blood Culture (Wb) - Left Forearm Blood Culture - Preliminary No growth in 48 hours. 04/21/21 16:56 Urine Catheter - Catheter Urine Culture - Preliminary Yeast, not Elisha albicans Gram positive organism 04/22/21 12:40 Mucosa - Nasopharyngeal Respiratory Panel (PCR) - Final Rhinovirus 04/21/21 16:56 Urine Catheter - Catheter Legionella Antigen - Final 04/21/21 16:56 Urine Catheter - Catheter Streptococcus pneumoniae Antigen (M - Final Radiography Diagnostic Testing: Radiology Impression Echocardiogram 04/23/21 05:55 Interpretation Summary Normal LV size. Left ventricular systolic function is normal. The estimated ejection fraction is 65 %. Stage 1 diastolic dysfunction. Mean aortic valve gradient 9 mmHg. Mild aortic stenosis. Contrast injection was performed. Ordering Physician: Clive Sharp Referring Physician: Donna Will M.D. Performed By: Bijal Mahajan RDCS Rhythm Strip Rhythm Strip: Sinus Rhythm Rate: 81 Ectopy: PAC(s) Physical Exam Const alert, oriented x3 and no apparent distress Orientation / Consciousness: awake, oriented to person, oriented to place and oriented to time HEENT normocephalic and moist oral mucous membranes Eyes PERRL, EOMs intact bilaterally and conjunctivae normal Neck no lymphadenopathy Resp clear to auscultation bilaterally Auscultation: diminished lung sounds Cardio regular rate, regular rhythm and no murmurs Peripheral Pulses: pulses 2+ throughout GI normal to inspection, nondistended, normoactive bowel sounds, non-tender and non-distended Extremity normal to inspection Skin no rashes or lesions noted Lesions: no lesions Rashes: no rashes Trauma: no lacerations or abrasions Neuro CN's II-XII intact bilaterally, no focal motor deficits, no sensory deficits noted and deep tendon reflexes 2+ bilaterally Psych mental status grossly normal Mood & Affect: flat affect Assessment & Plan Assessment/Plan (1) Acute on chronic respiratory failure with hypoxemia: PLAN: 1. Acute on chronic hypoxic respiratory failure secondary to acute bilateral PE and bilateral pneumonia, complicated by recent covid/rhinovirus in the setting of chronic COPD/asthma overlap syndrome-continue supplemental oxygen to maintain O2 above 90%. Walking pulse ox prior to discharge. Recently discharged on 3 L at rest and 4 L with exertion. Patient follows with Dr. Singleton, pulmonary medicine. Pulmonary medicine following. 2. Acute bilateral PE-CTA with multiple bilateral pulmonary emboli. Suspect secondary to poor mobility at home as well as recent Covid with likely hypercoagulable state. Therapeutic Lovenox. Transition to oral anticoagulation in a.m. 3. Bilateral pneumonia-CTA with increased bilateral pneumonia. Recent hospitalization. IV Vanc and IV Zosyn. Sputum and blood cultures negatibve however continues to have intermittent fever. Albuterol and DuoNeb aerosols. 4. Chronic COPD/asthma overlap syndrome-do not suspect exacerbation. Continue previously prescribed prednisone taper. Albuterol and DuoNeb aerosols. Respiratory panel with rhinovirus. 5. Adult failure to thrive-multiple recent admissions. PT/OT. Case management consult for discharge planning. Patient and amenable to TCU at discharge for rehab. 6. Acute metabolic encephalopathy-secondary to #1, continue treatment per above. Improved. 7. Recent COVID-19 infection-completed remdesivir and dexamethasone. 8. CAD with history of stents-continue aspirin, metoprolol. Not on statin. 9. Type 2 diabetes [id number] with sliding scale insulin. Oral regimen on hold. 10. Hypertension-continue metoprolol. 11. History of non-Hodgkin's lymphoma 12. History of rheumatoid arthritis- not on regimen. 13. Tobacco dependence-encouraged cessation. 14. Chronic microcytic anemia/iron deficiency-stable, continue iron supplementation. 15. Severe protein calorie malnutrition secondary to acute illness and inadequate oral intake with recent weight loss. Follow dietary supplement per dietitian recommendation. 16. Questionable ileus-resolved. Advance diet. DVT prophylaxis- Lovenox sc This patient was seen by SORIN Hansen under the supervision of Dr. Rosas. Discharge plan: TCU Time spent examining patient, reviewing data and subsequent management of care: 12 Minutes Documented by User: Dr. Suze Rosas MD 04/24/21 14:08 Objective Data Lab / Micro Data Result Diagrams: 04/24/21 05:39 04/24/21 05:39 Charges/Coding Addendum Addendum: This patient was seen in conjunction with Luz Boyd NP. I have independently interviewed and examined the patient and reviewed pertinent historical, laboratory, and other data. I have reviewed her note and concur with her documentation Patient was seen and examined. He stated that he feels improved. No acute events overnight. He is currently on 2 L of oxygen. He denied any fever or chills. BP is 114/58, heart rate 97, temperature 99.3 F, SPO2 96% on 2 L Physical Exam: Gen: Comfortable, not pale, not jaundiced, slightly in respiratory distress, 5 L of oxygen CVS:HS I +II, regular, no murmurs RESP: Diminished at lung bases GI: BS present and normal, soft, nontender, no palpable organs EXT:No edema ASSESSMENT: 1. Acute on chronic respiratory failure 2. Acute bilateral PE 3. Bilateral pneumonia 4. COPD/asthma 5. Debility 6. Acute metabolic encephalopathy 7. CAD status post stent 8. Type II DM 9. Hypertension 10. History of non-Hodgkin's lymphoma 11. Rheumatoid arthritis 12. Nicotine dependence 13. Recent COVID-19 infection 14. Severe malnutrition Plan: Continue to wean off oxygen Continue therapeutic Lovenox, breathing treatments Continue IV antibiotics Discharge planning - await SNF placement Time spent coordinating patient's care, discussing with subspecialty and nursin minutes Visit Charges Inpatient E&M: 23258 Subs Hosp L2 Multi Select Codes Visit Charges Visit Charges: 10207 Subs Hosp L2
[2021-04-24] MEDS: Insulin Lispro 100 UNIT/ML INSULN.PEN SC ×2 (17:03→21:45)
--- NOTE | 2021-04-24 17:09 | CASEMGMT ---
Social Work Note TYE spoke with Rosanna with TCU, pre-cert is still pending. Pt will also need a COVID test on day of discharge. TYE in to speak with pt and pt's Ca. TYE updated pt and Ca that pre-cert for TCU is still pending. TYE placed Green Sheet on pt's chart in the event pre-cert is obtained today. Rosanna with TCU to call [phone] if pre-cert is obtained. furnace puncher updated. Plan: TCU pending pre-cert. Pt will need COVID test on day of discharge Brittani Hernandez CNC PROGRAMMER, REPAIRER
[2021-04-24 17:26] LABS: Bedside Glucose 227 mg/dL (70-110)
[2021-04-24 18:26] LABS: Vancomycin, Random Level 23.2 ug/mL (0.0-15.0)
--- NOTE | 2021-04-24 19:07 | PHA.PHARE_ITS ---
Consult Pharmacy has been consulted to manage selected antiobiotic: Vancomycin Type of Consult: Follow-up Suspected Infection: Pneumonia Prior Doses of Antibiotics Received/Current Regimen: The patient had been on vanc 1500mg IV q12h until it was held after last night's dose. Labs: Sodium 139 mmol/L (136-145) 04/24/21 05:39 Potassium 3.8 mmol/L (3.5-5.1) 04/24/21 05:39 Chloride 107 mmol/L (98-107) 04/24/21 05:39 Carbon Dioxide 24.0 mmol/L (21.0-32.0) 04/24/21 05:39 Anion Gap 8 (5-15) 04/24/21 05:39 BUN 24 mg/dL (7-18) H 04/24/21 05:39 Creatinine 0.99 mg/dL (0.70-1.30) 04/24/21 05:39 Est GFR (MDRD) Af Amer 96 mL/min (>60) 04/24/21 05:39 Est GFR (MDRD) Non-Af 79 mL/min (>60) 04/24/21 05:39 BUN/Creatinine Ratio 24.2 RATIO (10-20) H 04/24/21 05:39 Glucose 101 mg/dL (74-106) 04/24/21 05:39 Vancomycin Trough 21.6 ug/mL (5.0-15.0) H 04/23/21 23:16 Random Vancomycin 23.2 ug/mL (0.0-15.0) H 04/24/21 17:37 Microbiology: Microbiology 04/22/21 22:40 Sputum, Expectorated/Coughed Gram Stain - Final 04/22/21 22:40 Sputum, Expectorated/Coughed Respiratory Culture - Prel iminary Appears to be normal respiratory domenico. Further studies to follow. 04/22/21 11:08 Blood Culture (Wb) - Anticubital Right Blood Culture - Preliminary No growth in 48 hours. 04/22/21 11:00 Blood Culture (Wb) - Left Forearm Blood Culture - Preliminary No growth in 48 hours. 04/21/21 16:56 Urine Catheter - Catheter Urine Culture - Preliminary Yeast, not Elisha albicans Gram positive organism 04/22/21 12:40 Mucosa - Nasopharyngeal Respiratory Panel (PCR) - Final Rhinovirus 04/21/21 16:56 Urine Catheter - Catheter Legionella Antigen - Final 04/21/21 16:56 Urine Catheter - Catheter Streptococcus pneumoniae Antigen (M - Final Weight used for dosin.1 kg Estimated Creatinine Clearance: 77 ml/min Goal Trough: 15-20 mcg/mL Pharmacy Plan for Drug Dosing: The vanc random level drawn at 17:37 tonight (drawn approx 18 hours after the last 1500mg dose) came back as 23.2. This is still higher than 20 so will continue to hold vanc dosing for now. Will recheck a random level in the morning with AM labs about 12 hours from now. If that is <20, can restart at a newly calculated dose. The patient's CrCl of 77 ml/min was calculated using an adjusted body weight of 79.8kg. Pharmacy Service will continue to monitor and adjust dosing as required. Follow-Up Labs: Trough Vancomycin - random level Labs to be done on [date and time ordered]: 04/25/21 0600
[2021-04-24] MEDS: Menthol/Lanolin/Calamine/Znox 113 GM Tube 1 APPLIC TOPICAL (20:55)
[2021-04-24] MEDS: Atorvastatin Calcium 40 MG Tablet PO (20:58)
[2021-04-24] MEDS: Metoprolol Tartrate 25 MG Tablet PO (20:58)
[2021-04-24 21:56] LABS: Bedside Glucose 252 mg/dL (70-110)
[2021-04-25] VITALS (21 sets, daily range): BP systolic 99–131; BP diastolic 53–74; PULSE 70–95; RESP 18–20; TEMP 36.6–38.3; O2SAT 83–95
[2021-04-25] MEDS: Acetaminophen 325 MG Tablet 650 MG PO ×2 (02:22→21:38)
[2021-04-25] MEDS: Enoxaparin 100 MG/ML Syringe 90 MG SC (06:02)
[2021-04-25 06:03] LABS: Absolute Lymphocyte Count 0.42 X10^3/uL (0.83-4.51); Absolute Neutrophil Count 3.7 X10^3/uL (2.0-7.7); Eosinophil# 0.06 X10^3/uL; Eosinophils% 1.3 % (0-5); Hemoglobin 8.1 g/dL (13.0-16.5); Lymphocyte # 0.42 X10^3/ul (0.83-4.51); Lymphocyte % 9.2 % (19-41); Mean Corp Hgb Conc 32.4 g/dL (32-36); Mean Corpuscular Hgb 25.3 pg (27.0-32.0); Mean Corpuscular Volume 78.1 fL (80-94); Mean Platelet Vol. 10.1 fl (6.2-12.0); Monocyte# 0.33 X10^3/uL; Monocyte% 7.2 % (0-10); NRBC Flagged by Analyzer 0 % (0-5); Neutrophil # 3.71 X10^3/uL (2.7-7.7); Neutrophil % 81.4 % (47-70); POSITIVE DIFFERENTIAL YES; Platelet Count 172 K/mm3 (150-450); RBC Distribution Width CV 16.3 % (11.6-14.6); RBC Distribution Width SD 45.7 fl (35.1-43.9); White Blood Count 4.6 K/mm3 (4.4-11.0)
[2021-04-25 06:05] LABS: Differential Indicated SCAN CRITERIA MET
[2021-04-25 06:10] LABS: Bedside Glucose 74 mg/dL (70-110)
[2021-04-25 06:16] LABS: Differential Comment SCANNED
[2021-04-25 06:42] LABS: Vancomycin, Random Level 17.8 ug/mL (0.0-15.0)
[2021-04-25] MEDS: Ferrous Sulfate 325 MG Tablet PO ×2 (08:30→16:58)
[2021-04-25] MEDS: Menthol/Lanolin/Calamine/Znox 113 GM Tube 1 APPLIC TOPICAL ×2 (08:30→21:37)
[2021-04-25 08:39] LABS: Anion Gap 7 (5-15); BUN 22 mg/dL (7-18); BUN/Creat Ratio 21.2 RATIO (10-20); Calcium,Total 7.7 mg/dL (8.5-10.1); Chloride 109 mmol/L (98-107); Creatinine, Serum 1.04 mg/dL (0.70-1.30); EST Glomerular Filtration Rate 75 mL/min (>60); Est Glom Filt Rate - Afr Amer 90 mL/min (>60); Estimated Creatinine Clearance 67.27 ml/min; Glucose 74 mg/dL (74-106); Potassium 3.3 mmol/L (3.5-5.1); Sodium Level 139 mmol/L (136-145)
--- NOTE | 2021-04-25 08:54 | PN.CC_ITS ---
Assessment & Plan Assessment/Plan (1) Acute alteration in mental status: (2) Hypoxemia: (3) Nicotine dependence, cigarettes, uncomplicated: (4) Diabetes: (5) Non-Hodgkin lymphoma: (6) RA (rheumatoid arthritis): QUALIFIERS: Rheumatoid factor presence: unspecified presence Laterality: unspecified laterality (7) Pulmonary embolism: PLAN: RECOMMENDATIONS: 1. Continue anticoagulation 2. Okay to reinitiate baseline inhalers on discharge 3. Defer to hospitalist on antibiotics 4. Challenge with diuretics as tolerated. Supplement potassium if needed 5. Wean oxygen as tolerated. Walking oximetry prior to discharge 6. Obtain walking oximetry today. Potential discharge if able to ambulate on 6 L or less IMPRESSIONS: 1. Acute on chronic hypoxic respiratory insufficiency with recent COVID-19, rhinovirus and PE in the setting of COPD/asthma overlap syndrome Patient does have groundglass opacities noted on CTA of the chest. This appears to be slightly worse compared to previous CT earlier in the month. This may be secondary to rhinovirus. Unclear if this is residual from previous COVID-19 versus a secondary process. Patient is immunosuppressed at baseline secondary to rheumatoid arthritis, so may not have a significant leukocytosis. Clinical suspicion for worsening oxygenation status secondary to PE. Patient does have significant immobility, recent COVID-19 infection and clinical dehydration on presentation, increasing risk for PE. Likely okay to transition to 10 a inhibitor and treat for a minimum of 6 months. Patient appears to be on baseline oxygen. Await walking oximetry. If able to tolerate ambulation on 6 L or less, okay to discharge from a pulmonary perspective. Patient should follow- up with nurse practitioner in 2 weeks. 2. Acute metabolic encephalopathy Improving. Clinical suspicion that this is secondary to hypoxia and UTI. Delirium secondary to respiratory etiology would also be a consideration. We will continue to monitor. 3. Acute UTI secondary to gram-positive bacteria Patient has remained on antibiotics throughout hospital course. Patient was afebrile today. No significant leukocytosis is noted. Urine culture is now reporting nonpathologic levels of gram-positive bacteria. Defer to hospitalist.. Recent echo showed aortic valve stenosis, but no vegetations. 4. Coronary artery disease status post stents/type 2 diabetes mellitus/hypertension/history of RA/history of lymphoma/tobacco dependence Complicates care, management, recovery and prognosis. Will need to watch blood sugars closely given steroids using for problem #1. Blood pressures appear to be relatively controlled at this time. Continue current medications. Patient can be offered nicotine replacement if necessary. Did confirm with the patient that he is a full code. Subjective Subjective Patient did okay overnight. No acute issues were reported. Patient states he feels well enough to go home. Patient did not have a fever overnight. Patient was on 2 L nasal cannula on my arrival. No significant cough is reported. Patient is not reporting any bleeding complications. Objective Data Objective Data Vital Signs: Vital Signs Temp Pulse Resp BP Pulse Ox 36.7 C 82 18 121/53 H 93 04/25/21 08:12 04/25/21 08:12 04/25/21 08:12 04/25/21 08:12 04/25/21 08:12 Oxygen Flow Rate (L/min) 5 Oxygen Delivery Method Nasal Cannula Weight: 90 kg Body Mass Index (BMI) 27.7 Intake & Output: Intake and Output for Last 24 Hours 04/23/21 04/24/21 04/25/21 23:59 23:59 23:59 Intake Total 1644.25 / 1644.25 1517.25 / 1517.25 50 / 50 Output Total 200 / 200 Balance 1644.25 / 1644.25 1317.25 / 1317.25 50 / 50 Medical Nutrition Assessment Dietitian: Malnutrition Criteria Met Start: 04/22/21 13:14 Freq: Status: Active Protocol: Document 04/22/21 13:14 AG (Rec: 04/22/21 13:14 [id number]) Nutrition Malnutrition Evidence of Malnutrition Exists Yes Malnutrition (severe): Acute Illness/Injury Evidenced By Suboptimal Energy Intake ( Severe),Weight Loss (Severe) Clinical Problem Acute Disease or Injury Related Malnutrition Etiology severe, acute malnutrition r/t inadequate energy intake w/ acute illness Signs/Symptoms as evidenced by unintentional wt loss of 20.5#/9.4% x 1 month, estimated PO intake meeting <75% of estimated energy needs x 1 month Status Active Problem Recommendation Dietitian Recommendations/Changes will liberalize diet to regular given severe malnutrition; continue 120mL glucerna ONS w/ medpass for additional calories/protein if consumed. Lab / Micro Data Result Diagrams: 04/25/21 05:50 04/25/21 05:50 Labs: Laboratory Results - last 24 hr 04/24/21 11:21: POC Glucose 123 H 04/24/21 17:00: POC Glucose 227 H 04/24/21 17:37: Random Vancomycin 23.2 H 04/24/21 21:43: POC Glucose 252 H 04/25/21 05:50: WBC 4.6, RBC 3.20 L, Hgb 8.1 L, Hct 25.0 L, MCV 78.1 L, MCH 25.3 L, MCHC 32.4, RDW Std Deviation 45.7 H, RDW Coeff of Rafael 16.3 H, Plt Count 172, MPV 10.1, Immature Gran % (Auto) 0.900, Neut % (Auto) 81.4 H, Lymph % (Auto) 9.2 L, [place] % (Auto) 7.2, Eos % (Auto) 1.3, Baso % (Auto) 0.0, Absolute Neuts (auto) 3.7, Absolute Lymphs (auto) 0.42 L, Nucleated RBC % 0, Differential Comment SCANNED 04/25/21 05:50: Sodium 139, Potassium 3.3 L, Chloride 109 H, Carbon Dioxide 23.0, Anion Gap 7, BUN 22 H, Creatinine 1.04, Estim Creat Clear Calc 67.27, Est GFR (MDRD) Af Amer 90, Est GFR (MDRD) Non-Af 75, BUN/Creatinine Ratio 21.2 H, G lucose 74, Calcium 7.7 L 04/25/21 05:50: Random Vancomycin 17.8 H 04/25/21 06:06: POC Glucose 74 Micro: Microbiology 04/21/21 16:56 Urine Catheter - Catheter Urine Culture - Final Yeast, not Elisha albicans Mixed Gram Positive Organisms 04/22/21 22:40 Sputum, Expectorated/Coughed Gram Stain - Final 04/22/21 22:40 Sputum, Expectorated/Coughed Respiratory Culture - Prelimin ximena Appears to be normal respiratory domenico. Further studies to follow. 04/22/21 11:08 Blood Culture (Wb) - Anticubital Right Blood Culture - Preliminary No growth in 48 hours. 04/22/21 11:00 Blood Culture (Wb) - Left Forearm Blood Culture - Preliminary No growth in 48 hours. 04/22/21 12:40 Mucosa - Nasopharyngeal Respiratory Panel (PCR) - Final Rhinovirus 04/21/21 16:56 Urine Catheter - Catheter Legionella Antigen - Final 04/21/21 16:56 Urine Catheter - Catheter Streptococcus pneumoniae Antigen (M - Final Rhythm Strip Rhythm Strip: Sinus Rhythm Rate: 81 Ectopy: PAC(s) Physical Exam Const alert and no apparent distress Constitutional Narrative: Initially sleeping, lying in bed on my examination. No conversational dyspnea. Appropriate today Orientation / Consciousness: confused HEENT normocephalic and moist oral mucous membranes Eyes PERRL, EOMs intact bilaterally and conjunctivae normal Neck no lymphadenopathy Chest Chest: abnormal inspection of the chest increased A-P diameter; Negative for crepitus Resp Auscultation: diminished lung sounds; Negative for rales, rhonchi or wheezes Cardio regular rate, regular rhythm and no murmurs Peripheral Pulses: pulses 2+ throughout GI normal to inspection, nondistended, normoactive bowel sounds, non-tender and non-distended Extremity normal to inspection General Extremity: edema bilateral (2+) lower extremity; Negative for clubbing or cyanosis Skin no rashes or lesions noted Lesions: no lesions Rashes: no rashes Trauma: no lacerations or abrasions Neuro CN's II-XII intact bilaterally, no focal motor deficits, no sensory deficits noted and deep tendon reflexes 2+ bilaterally Psych mental status grossly normal and affect normal Charges/Coding Visit Charges Inpatient E&M: 79880 Subs Hosp L2
[2021-04-25] MEDS: Metoprolol Tartrate 25 MG Tablet PO ×2 (09:04→21:37)
[2021-04-25] MEDS: Aspirin E.C. 81 MG Tablet PO (09:05)
--- NOTE | 2021-04-25 09:22 | PHA.PHARE_ITS ---
Consult Pharmacy has been consulted to manage selected antiobiotic: Vancomycin Type of Consult: Follow-up Suspected Infection: Pneumonia Prior Doses of Antibiotics Received/Current Regimen: Last dose was 1500mg on 04.23.22 @2338. Random level was high at 21.6 on 04.23 and 23.2 on 04.24.21. Labs: Sodium 139 mmol/L (136-145) 04/25/21 05:50 Potassium 3.3 mmol/L (3.5-5.1) L 04/25/21 05:50 Chloride 109 mmol/L (98-107) H 04/25/21 05:50 Carbon Dioxide 23.0 mmol/L (21.0-32.0) 04/25/21 05:50 Anion Gap 7 (5-15) 04/25/21 05:50 BUN 22 mg/dL (7-18) H 04/25/21 05:50 Creatinine 1.04 mg/dL (0.70-1.30) 04/25/21 05:50 Est GFR (MDRD) Af Amer 90 mL/min (>60) 04/25/21 05:50 Est GFR (MDRD) Non-Af 75 mL/min (>60) 04/25/21 05:50 BUN/Creatinine Ratio 21.2 RATIO (10-20) H 04/25/21 05:50 Glucose 74 mg/dL (74-106) 04/25/21 05:50 Vancomycin Trough 21.6 ug/mL (5.0-15.0) H 04/23/21 23:16 Random Vancomycin 17.8 ug/mL (0.0-15.0) H 04/25/21 05:50 Microbiology: Microbiology 04/21/21 16:56 Urine Catheter - Catheter Urine Culture - Final Yeast, not Elisha albicans Mixed Gram Positive Organisms 04/22/21 22:40 Sputum, Expectorated/Coughed Gram Stain - Final 04/22/21 22:40 Sputum, Expectorated/Coughed Respiratory Culture - Preliminar y Appears to be normal respiratory domenico. Further studies to follow. 04/22/21 11:08 Blood Culture (Wb) - Anticubital Right Blood Culture - P reliminary No growth in 48 hours. 04/22/21 11:00 Blood Culture (Wb) - Left Forearm Blood Culture - Preliminary No growth in 48 hours. 04/22/21 12:40 Mucosa - Nasopharyngeal Respiratory Panel (PCR) - Final Rhinovirus 04/21/21 16:56 Urine Catheter - Catheter Legionella Antigen - Final 04/21/21 16:56 Urine Catheter - Catheter Streptococcus pneumoniae Antigen (M - Final Weight used for dosin kg Estimated Creatinine Clearance: 73.5 Goal Trough: 15-20 mcg/mL Pharmacy Plan for Drug Dosing: Random level this AM was 17.8 and in desired range of 15-20mcg/ml. Cr 1.04 and Cr Cl calculated to be ~74 for adjusted body weight of 79.8kg. Will restart vancomycin today at 1250mg iv q12h. Trough level ordered for before 4th dose. Pharmacy Service will continue to monitor and adjust dosing as required. Follow-Up Labs: Trough Vancomycin - 3.3.22 @2330 before 2400 dose
--- NOTE | 2021-04-25 09:52 | CASEMGMT ---
Addendum entered by Brittani Hernandez 04/25/21 16:07: SW received call from [facility] with TCU stating pre-cert has been obtained. SW updated PA, no discharge today. SW placed a call to [facility] with TCU and left message updating her no discharge today for pt. Original Note: Social Work Note SW placed a call to [facility] with TCU. Pre-cert for TCU is still pending. Plan: TCU pending pre-cert Brittani Hernandez DRIVER TRAINER, MAGICIAN HELPER
[2021-04-25] MEDS: Ipratropium/Albuterol Sulfate 3 ML AMPUL.NEB INHALATION (11:07)
[2021-04-25 12:05] LABS: Bedside Glucose 163 mg/dL (74-106)
--- NOTE | 2021-04-25 12:25 | PN.HOSP_ITS ---
Documented by User: Luz Boyd NP, PROCUREMENT BUYER-C 04/25/21 12:40 Subjective Subjective Patient seen and examined. Intermittent fever overnight. Reports diarrhea. Denies other symptoms or complaints. Objective Data Objective Data Vital Signs: Vital Signs Temp Pulse Resp BP Pulse Ox 98.0 F 88 20 H 121/53 H 93 04/25/21 08:12 04/25/21 11:09 04/25/21 11:09 04/25/21 09:04 04/25/21 08:12 Oxygen Flow Rate (L/min) 5 Oxygen Delivery Method Nasal Cannula Weight: 198 lb 6.656 oz Body Mass Index (BMI) 27.7 Intake & Output: Intake and Output for Last 24 Hours 04/23/21 04/24/21 04/25/21 23:59 23:59 23:59 Intake Total 1644.25 / 1644.25 1517.25 / 1517.25 50 / 50 Output Total 200 / 200 Balance 1644.25 / 1644.25 1317.25 / 1317.25 50 / 50 Medical Nutrition Assessment Dietitian: Malnutrition Criteria Met Start: 04/22/21 13:14 Freq: Status: Active Protocol: Document 04/22/21 13:14 AG (Rec: 04/22/21 13:14 [id number]) Nutrition Malnutrition Evidence of Malnutrition Exists Yes Malnutrition (severe): Acute Illness/Injury Evidenced By Suboptimal Energy Intake ( Severe),Weight Loss (Severe) Clinical Problem Acute Disease or Injury Related Malnutrition Etiology severe, acute malnutrition r/t inadequate energy intake w/ acute illness Signs/Symptoms as evidenced by unintentional wt loss of 20.5#/9.4% x 1 month, estimated PO intake meeting <75% of estimated energy needs x 1 month Status Active Problem Recommendation Dietitian Recommendations/Changes will liberalize diet to regular given severe malnutrition; continue 120mL glucerna ONS w/ medpass for additional calories/protein if consumed. Lab / Micro Data Result Diagrams: 04/25/21 05:50 04/25/21 05:50 Labs: Laboratory Results - last 24 hr 04/24/21 17:00: POC Glucose 227 H 04/24/21 17:37: Random Vancomycin 23.2 H 04/24/21 21:43: POC Glucose 252 H 04/25/21 05:50: WBC 4.6, RBC 3.20 L, Hgb 8.1 L, Hct 25.0 L, MCV 78.1 L, MCH 25.3 L, MCHC 32.4, RDW Std Deviation 45.7 H, RDW Coeff of Rafael 16.3 H, Plt Count 172, MPV 10.1, Immature Gran % (Auto) 0.900, Neut % (Auto) 81.4 H, Lymph % (Auto) 9.2 L, [place] % (Auto) 7.2, Eos % (Auto) 1.3, Baso % (Auto) 0.0, Absolute Neuts (auto) 3.7, Absolute Lymphs (auto) 0.42 L, Nucleated RBC % 0, Differential Comment SCANNED 04/25/21 05:50: Sodium 139, Potassium 3.3 L, Chloride 109 H, Carbon Dioxide 23.0, Anion Gap 7, BUN 22 H, Creatinine 1.04, Estim Creat Clear Calc 67.27, Est GFR (MDRD) Af Amer 90, Est GFR (MDRD) Non-Af 75, BUN/Creatinine Ratio 21.2 H, Glucose 74, Calcium 7.7 L 04/25/21 05:50: Random Vancomycin 17.8 H 04/25/21 06:06: POC Glucose 74 04/25/21 12:02: POC Glucose 163 H Micro: Microbiology 04/22/21 22:40 Sputum, Expectorated/Coughed Gram Stain - Final 04/22/21 22:40 Sputum, Expectorated/Coughed Respiratory Culture - Final Yeast Like Organism Mixed Gram Positive Organisms 04/21/21 16:56 Urine Catheter - Catheter Urine Culture - Final Yeast, not Elisha albicans Mixed Gram Positive Organisms 04/22/21 11:08 Blood Culture (Wb) - Anticubital Right Blood Culture - Preliminary No growth in 48 hours. 04/22/21 11:00 Blood Culture (Wb) - Left Forearm Blood Culture - Preliminary No growth in 48 hours. 04/22/21 12:40 Mucosa - Nasopharyngeal Respiratory Panel (PCR) - Final Rhinovirus 04/21/21 16:56 Urine Catheter - Catheter Legionella Antigen - Final 04/21/21 16:56 Urine Catheter - Catheter Streptococcus pneumoniae Antigen (M - Final Rhythm Strip Rhythm Strip: Sinus Rhythm Rate: 81 Ectopy: PAC(s) Physical Exam Const alert, oriented x3 and no apparent distress Orientation / Consciousness: awake, oriented to person, oriented to place and oriented to time HEENT normocephalic and moist oral mucous membranes Eyes PERRL, EOMs intact bilaterally and conjunctivae normal Neck no lymphadenopathy Resp clear to auscultation bilaterally Auscultation: diminished lung sounds Cardio regular rate, regular rhythm and no murmurs Peripheral Pulses: pulses 2+ throughout GI normal to inspection, nondistended, normoactive bowel sounds, non-tender and non-distended Extremity normal to inspection Skin no rashes or lesions noted Lesions: no lesions Rashes: no rashes Trauma: no lacerations or abrasions Neuro CN's II-XII intact bilaterally, no focal motor deficits, no sensory deficits noted and deep tendon reflexes 2+ bilaterally Psych mental status grossly normal and affect normal Mood & Affect: flat affect Assessment & Plan Assessment/Plan (1) Ileus: (2) Acute on chronic respiratory failure with hypoxemia: PLAN: 1. Acute on chronic hypoxic respiratory failure secondary to acute bilateral PE and bilateral pneumonia, complicated by recent covid/rhinovirus in the setting of chronic COPD/asthma overlap syndrome-continue supplemental oxygen to maintain O2 above 90%. Walking pulse ox prior to discharge. Recently discharged on 3 L at rest and 4 L with exertion. Patient follows with Dr. Singleton, pulmonary medicine. Pulmonary medicine following. 2. Acute bilateral PE-CTA with multiple bilateral pulmonary emboli. Suspect secondary to poor mobility at home as well as recent Covid with likely hypercoagulable state. Initiated on Eliquis. 3. Bilateral pneumonia-CTA with increased bilateral pneumonia. Recent hospitalization. IV Vanc and IV Zosyn. Sputum and blood cultures negative however continues to have intermittent fever. Plan to discontinue antibiotics following 7 days of therapy 04/27/21. 4. Chronic COPD/asthma overlap syndrome-do not suspect exacerbation. Completed previously prescribed prednisone taper. Albuterol and DuoNeb aerosols. Respiratory panel with rhinovirus which was positive two weeks prior as well. 5. Diarrhea- stool for cdiff pending. If negative will add PRN immodium. 6. Acute metabolic encephalopathy-secondary to #1, continue treatment per above. Improved. 7. Recent COVID-19 infection-completed remdesivir and dexamethasone. 8. CAD with history of stents-continue aspirin, metoprolol. Not on statin. 9. Type 2 diabetes [id number] with sliding scale insulin. Oral regimen on hold. 10. Hypertension-continue metoprolol. 11. History of non-Hodgkin's lymphoma 12. History of rheumatoid arthritis- not on regimen. 13. Tobacco dependence-encouraged cessation. 14. Chronic microcytic anemia/iron deficiency-stable, continue iron supplementation. 15. Severe protein calorie malnutrition secondary to acute illness and nandini dequate oral intake with recent weight loss. Follow dietary supplement per dietitian recommendation. 16. Questionable ileus-resolved. Advance diet. 17. Adult failure to thrive-multiple recent admissions. PT/OT. Case management consult for discharge planning. Patient and amenable to TCU at discharge for rehab. DVT prophylaxis-Eliquis This patient was seen by ROSANGELA HansenC under the supervision of Dr. Rosas. Discharge plan: TCU pending acceptance Time spent examining patient, reviewing data and subsequent management of care: 12 Minutes Documented by User: Dr. Suze Rosas MD 04/25/21 16:07 Objective Data Lab / Micro Data Result Diagrams: 04/25/21 05:50 04/25/21 05:50 Charges/Coding Addendum Addendum: This patient was seen in conjunction with Luz Boyd NP. I have independently interviewed and examined the patient and reviewed pertinent historical, laboratory, and other data. I have reviewed her note and concur with her documentation Patient was seen and examined. He has been running low-grade fever. He also has loose stools. Stool for C. difficile is negative BP is 108/62, heart rate 92, temperature 98.5F, SPO2 95 % on 5 L Physical Exam: Gen: Comfortable, not pale, not jaundiced, slightly in respiratory distress, 5 L of oxygen CVS:HS I +II, regular, no murmurs RESP: Diminished at lung bases GI: BS present and normal, soft, nontender, no palpable organs EXT:No edema ASSESSMENT: 1. Acute on chronic respiratory failure 2. Acute bilateral PE 3. Bilateral pneumonia 4. COPD/asthma 5. Debility 6. Acute metabolic encephalopathy 7. CAD status post stent 8. Type II DM 9. Hypertension 10. History of non-Hodgkin's lymphoma 11. Rheumatoid arthritis 12. Nicotine dependence 13. Recent COVID-19 infection 14. Severe malnutrition Plan: Re-panculture patient Repeat chest x-ray Continue to wean off oxygen Switch to Eliquis Breathing treatments Switch IV antibiotics to oral Augmentin for 3 more days making a total of 7 days Discharge planning - await SNF placement Visit Charges Inpatient E&M: 90494 [facility] Hosp L3
[2021-04-25] MEDS: 0.9% Saline Lock 10 ML Syringe IV ×2 (12:58→16:55)
[2021-04-25] MEDS: Insulin Lispro 100 UNIT/ML INSULN.PEN SC ×3 (12:59→21:38)
[2021-04-25] MEDS: APIXABAN 5 MG TABLET 10 MG PO ×2 (13:30→21:37)
[2021-04-25] MEDS: Loperamide 2 MG Capsule PO (15:12)
--- NOTE | 2021-04-25 16:25 | RAD_ITS ---
HISTORY: Fever, hypoxia EXAMINATION/TECHNIQUE: XR Chest 2 Views: 2 views COMPARISON: 04/21/21 FINDINGS: LINES/DEVICES: None. LUNGS: Patchy bilateral airspace opacities with small right pleural effusion. MEDIASTINUM AND CARDIOVASCULAR STRUCTURES: Cardiac silhouette not enlarged. Stable CABG changes. Central airways and mediastinal contour are unremarkable. BONES AND SOFT TISSUES: No acute bony abnormalities. RAD/Chest PA and Lateral IMPRESSION: Patchy bilateral airspace disease and right pleural effusion. Findings consistent with pneumonia. Recommend short term follow-up to resolution. at 1647 Reported and signed by: Abel Vásquez MD Electronically Signed: Abel Vásquez MD at 16:46 EST ,
[2021-04-25] MEDS: Amox/Clavulanate 875 MG Tablet PO (16:55)
[2021-04-25 16:56] LABS: Bedside Glucose 204 mg/dL (74-106)
[2021-04-25 21:36] LABS: Bedside Glucose 188 mg/dL (74-106)
[2021-04-25] MEDS: Atorvastatin Calcium 40 MG Tablet PO (21:37)
[2021-04-26] VITALS (16 sets, daily range): BP systolic 83–159; BP diastolic 45–79; PULSE 67–96; RESP 16–22; TEMP 36.3–38.1; O2SAT 91–99
[2021-04-26 01:11] LABS: Color, Urine Yellow (Yellow); Glucose, Dipstick Normal (Normal); Ketone-Dipstick Negative (Negative); Leukocyte Esterase-Dipstick Negative /ul (Negative); Mucous, Urine 0 SEEN /hpf (<or=2+); Nitrite-Dipstick Negative (Negative); Occult Blood-Urine 25 /ul (Negative); Protein-Dipstick 30 mg/dl (Negative); Squamous Epithelial Cells - UA 0 SEEN /hpf (0-5); Urine Bilirubin Dipstick Negative (Negative); Urine Clarity Clear (Clear); Urine Urobilinogen Normal (Normal)
--- NOTE | 2021-04-26 01:15 | NURSING ---
BP 83/45. Pt resting quietly in bed. Asymptomatic. Dr Lazcano made aware. Order to recheck BP in one hour & let him know results.
[2021-04-26 01:23] LABS: Amorphous Sediment 1+; Bacteria 2+ /hpf (None Seen); Red Blood Cells-Urine 0-5 SEEN /hpf (0-5); White Blood Cells 0-5 SEEN /hpf (0-5); Yeast-Urine 2+ /hpf (None Seen)
--- NOTE | 2021-04-26 04:05 | NURSING ---
Late Entry - 0245 - recheck 118/63 - Dr Lazcano notified, no new orders @ this time.
[2021-04-26] MEDS: Acetaminophen 325 MG Tablet 650 MG PO (06:20)
[2021-04-26 06:21] LABS: Bedside Glucose 98 mg/dL (74-106)
[2021-04-26 06:46] LABS: Absolute Lymphocyte Count 0.62 X10^3/uL (0.83-4.51); Basophil# 0.01 X10^3/uL; Basophil% 0.2 % (0-1); Eosinophil# 0.07 X10^3/uL; Eosinophils% 1.3 % (0-5); Hematocrit 30.9 % (40-54); Hemoglobin 9.5 g/dL (13.0-16.5); Lymphocyte # 0.62 X10^3/ul (0.83-4.51); Lymphocyte % 11.9 % (19-41); Mean Corp Hgb Conc 30.7 g/dL (32-36); Mean Corpuscular Hgb 24.9 pg (27.0-32.0); Mean Corpuscular Volume 80.9 fL (80-94); Mean Platelet Vol. 10.2 fl (6.2-12.0); Monocyte# 0.44 X10^3/uL; Monocyte% 8.5 % (0-10); NRBC Flagged by Analyzer 0 % (0-5); Neutrophil # 4.01 X10^3/uL (2.7-7.7); Neutrophil % 77.3 % (47-70); Platelet Count 190 K/mm3 (150-450); RBC Distribution Width CV 16.5 % (11.6-14.6); Red Blood Count 3.82 M/mm3 (4.6-6.2); White Blood Count 5.2 K/mm3 (4.4-11.0)
[2021-04-26 07:08] LABS: Anion Gap 4 (5-15); BUN 22 mg/dL (7-18); BUN/Creat Ratio 16.3 RATIO (10-20); Calcium,Total 7.8 mg/dL (8.5-10.1); Chloride 108 mmol/L (98-107); Creatinine, Serum 1.35 mg/dL (0.70-1.30); EST Glomerular Filtration Rate 55 mL/min (>60); Est Glom Filt Rate - Afr Amer 67 mL/min (>60); Estimated Creatinine Clearance 51.82 ml/min; Glucose 92 mg/dL (74-106); Magnesium 1.6 mg/dL (1.6-2.6); Phosphorus 2.5 mg/dL (2.5-4.9); Potassium 3.4 mmol/L (3.5-5.1); Sodium Level 138 mmol/L (136-145)
[2021-04-26] MEDS: Ipratropium/Albuterol Sulfate 3 ML AMPUL.NEB INHALATION ×2 (07:09→10:57)
--- NOTE | 2021-04-26 09:13 | PN.CC_ITS ---
Assessment & Plan Assessment/Plan (1) Acute alteration in mental status: (2) Hypoxemia: (3) Nicotine dependence, cigarettes, uncomplicated: (4) Diabetes: (5) Non-Hodgkin lymphoma: (6) RA (rheumatoid arthritis): QUALIFIERS: Rheumatoid factor presence: unspecified presence Laterality: unspecified laterality (7) Pulmonary embolism: PLAN: RECOMMENDATIONS: 1. Continue anticoagulation 2. Okay to reinitiate baseline inhalers on discharge. Encourage incentive spirometer and Acapella 3. Defer to hospitalist on antibiotics. Consider Imodium 4. Challenge with diuretics as tolerated. Supplement potassium if needed 5. Wean oxygen as tolerated. Walking oximetry prior to discharge 6. Obtain walking oximetry today. Potential discharge if able to ambulate on 6 L or less IMPRESSIONS: 1. Acute on chronic hypoxic respiratory insufficiency with recent COVID-19, rhinovirus and PE in the setting of COPD/asthma overlap syndrome Patient does have groundglass opacities noted on CTA of the chest. This appears to be slightly worse compared to previous CT earlier in the month. This may be secondary to rhinovirus. Unclear if this is residual from previous COVID-19 versus a secondary process. Patient is immunosuppressed at baseline secondary to rheumatoid arthritis, so may not have a significant leukocytosis. Clinical suspicion for worsening oxygenation status secondary to PE. Patient does have significant immobility, recent COVID-19 infection and clinical dehydration on presentation, increasing risk for PE. Likely okay to transition to 10 a inhibitor and treat for a minimum of 6 months. Did encourage patient to be more vigilant in using pulmonary toileting techniques. Await walking oximetry. If able to tolerate ambulation on 6 L or less, okay to discharge from a pulmonary perspective. Patient should follow-up with nurse practitioner in 2 weeks. 2. Acute metabolic encephalopathy Improving. Clinical suspicion that this is secondary to hypoxia and UTI. Delirium secondary to respiratory etiology would also be a consideration. We will continue to monitor. 3. Acute UTI secondary to gram-positive bacteria Patient has remained on antibiotics throughout hospital course. Patient was afebrile today. No significant leukocytosis is noted. Urine culture is now reporting nonpathologic levels of gram-positive bacteria. Defer to hospitalist.. Recent echo showed aortic valve stenosis, but no vegetations. 4. Coronary artery disease status post stents/type 2 diabetes mellitus/hypertension/history of RA/history of lymphoma/tobacco dependence Complicates care, management, recovery and prognosis. Will need to watch blood sugars closely given steroids using for problem #1. Blood pressures appear to be relatively controlled at this time. Continue current medications. Patient can be offered nicotine replacement if necessary. Did confirm with the patient that he is a full code. Patient does have diarrhea, but is C. difficile negative. Consider initiation of Imodium. Subjective Subjective Patient did okay overnight. Patient did have fevers, but tolerated them well from a hemodynamic standpoint. Patient continues to have a cough, but denies any bleeding. Patient has reportedly had significant bowel movements overnight. Patient readily admits that he uses the incentive spirometer when I think about it. Objective Data Objective Data Vital Signs: Vital Signs Temp Pulse Resp BP Pulse Ox 38.1 C H 85 20 H 159/79 H 97 04/26/21 06:12 04/26/21 07:09 04/26/21 07:09 04/26/21 06:12 04/26/21 07:09 Oxygen Flow Rate (L/min) 4.5 Oxygen Delivery Method Nasal Cannula Weight: 90 kg Body Mass Index (BMI) 27.7 Intake & Output: Intake and Output for Last 24 Hours 04/24/21 04/25/21 04/26/21 23:59 23:59 23:59 Intake Total 1517.25 / 1517.25 1175 / 1175 60 / 60 Output Total 200 / 200 150 / 150 Balance 1317.25 / 1317.25 1025 / 1025 60 / 60 Medical Nutrition Assessment Dietitian: Malnutrition Criteria Met Start: 04/22/21 13:14 Freq: Status: Active Protocol: Document 04/25/21 14:26 (Rec: 04/25/21 14:26 [id number]) Nutrition Malnutrition Evidence of Malnutrition Exists Yes Malnutrition (severe): Acute Illness/Injury Evidenced By Suboptimal Energy Intake ( Severe),Weight Loss (Severe) Clinical Problem Acute Disease or Injury Related Malnutrition Etiology severe, acute malnutrition r/t inadequate energy intake w/ acute illness Signs/Symptoms as evidenced by unintentional wt loss of 20.5#/9.4% x 1 month, estimated PO intake meeting <75% of estimated energy needs x 1 month Status Active Problem Recommendation Dietitian Recommendations/Changes continue regular diet given severe malnutrition; continue 120mL glucerna ONS w/ medpass for additional calories/ protein if consumed. Will add ONS w/ meals additionally. Lab / Micro Data Result Diagrams: 04/26/21 06:34 04/26/21 06:34 Labs: Laboratory Results - last 24 hr 04/25/21 12:02: POC Glucose 163 H 04/25/21 16:49: POC Glucose 204 H 04/25/21 21:30: POC Glucose 188 H 04/26/21 01:00: Urine Color Yellow, Urine Clarity Clear, Urine pH 6.0, Ur Specific [place] 1.010, Urine Protein 30 H, Urine Glucose (UA) Normal, Urine Ketones Negative, Urine Occult Blood 25 H, Urine Nitrite Negative, Urine Bilirubin Negative, Urine Urobilinogen Normal, Ur Leukocyte Esterase Negative, Urine RBC 0-5 SEEN, Urine WBC 0-5 SEEN, Ur Squamous Epith Cells 0 SEEN, Amorphous Sediment 1+, Urine Bacteria 2+, Urine Mucus 0 SEEN, Urine Yeast 2+ 04/26/21 06:17: POC Glucose 98 04/26/21 06:34: WBC 5.2, RBC 3.82 L, Hgb 9.5 L, Hct 30.9 L, MCV 80.9, MCH 24.9 L , MCHC 30.7 L D, RDW Std Deviation 48.0 H, RDW Coeff of Rafael 16.5 H, Plt Count 190, MPV 10.2, Immature Gran % (Auto) 0.800, Neut % (Auto) 77.3 H, Lymph % (Auto) 11.9 L, [place] % (Auto) 8.5, Eos % (Auto) 1.3, Baso % (Auto) 0.2, Absolute Neuts (auto) 4.0, Absolute Lymphs (auto) 0.62 L, Nucleated RBC % 0 04/26/21 06:34: Sodium 138, Potassium 3.4 L, Chloride 108 H, Carbon Dioxide 26.0, Anion Gap 4 L, BUN 22 H, Creatinine 1.35 H, Estim Creat Clear Calc 51.82, Est GFR (MDRD) Af Amer 67, Est GFR (MDRD) Non-Af 55 L, BUN/Creatinine Ratio 16.3, Glucose 92, Calcium 7.8 L, Phosphorus 2.5, Magnesium 1.6 Micro: Microbiology 04/25/21 09:55 Stool C. difficile DNA Amplification - Final 04/22/21 22:40 Sputum, Expectorated/Coughed Gram Stain - Final 04/22/21 22:40 Sputum, Expectorated/Coughed Respiratory Culture - Final Yeast Like Organism Mixed Gram Positive Organisms 04/21/21 16:56 Urine Catheter - Catheter Urine Culture - Final Yeast, not Elisha albicans Mixed Gram Positive Organisms 04/22/21 11:08 Blood Culture (Wb) - Anticubital Right Blood Culture - Preliminary No growth in 48 hours. 04/22/21 11:00 Blood Culture (Wb) - Left Forearm Blood Culture - Preliminary No growth in 48 hours. 04/22/21 12:40 Mucosa - Nasopharyngeal Respiratory Panel (PCR) - Final Rhinovirus 04/21/21 16:56 Urine Catheter - Catheter Legionella Antigen - Final 04/21/21 16:56 Urine Catheter - Catheter Streptococcus pneumoniae Antigen (M - Final Radiography Diagnostic Testing: Radiology Impression Chest X-Ray 04/25/21 16:25 IMPRESSION: Patchy bilateral airspace disease and right pleural effusion. Findings consistent with pneumonia. Recommend short term follow-up to resolution. at 1647 Reported and signed by: Abel Vásquez MD Electronically Signed: Abel Vásquez MD at 16:46 EST Reading Location ID and State: [facility] / [place] Tel , Service support , Rhythm Strip Rhythm Strip: Sinus Rhythm Rate: 81 Ectopy: PAC(s) Physical Exam Const alert and no apparent distress Constitutional Narrative: Initially sleeping, lying in bed on my examination. No conversational dyspnea. Appropriate today Orientation / Consciousness: confused HEENT normocephalic and moist oral mucous membranes Eyes PERRL, EOMs intact bilaterally and conjunctivae normal Neck no lymphadenopathy Chest Chest: abnormal inspection of the chest increased A-P diameter; Negative for crepitus Resp Auscultation: diminished lung sounds; Negative for rales, rhonchi or wheezes Cardio regular rate, regular rhythm and no murmurs Peripheral Pulses: pulses 2+ throughout GI normal to inspection, nondistended, normoactive bowel sounds, non-tender and non-distended Extremity normal to inspection General Extremity: edema bilateral (2+) lower extremity; Negative for clubbing or cyanosis Skin no rashes or lesions noted Lesions: no lesions Rashes: no rashes Trauma: no lacerations or abrasions Neuro CN's II-XII intact bilaterally, no focal motor deficits, no sensory deficits noted and deep tendon reflexes 2+ bilaterally Psych mental status grossly normal and affect normal Charges/Coding Visit Charges Inpatient E&M: 46080 Subs Hosp L2
[2021-04-26] MEDS: APIXABAN 5 MG TABLET 10 MG PO (10:35)
[2021-04-26] MEDS: Aspirin E.C. 81 MG Tablet PO (10:35)
[2021-04-26] MEDS: Ferrous Sulfate 325 MG Tablet PO (10:35)
[2021-04-26] MEDS: Menthol/Lanolin/Calamine/Znox 113 GM Tube 1 APPLIC TOPICAL (10:35)
[2021-04-26] MEDS: Amox/Clavulanate 875 MG Tablet PO (10:35)
[2021-04-26] MEDS: Potassium Chloride Oral Tablet 20 MEQ 40 MEQ PO (10:35)
[2021-04-26] MEDS: 0.9% Normal Saline 1,000 ML 75 ML IV (10:45)
--- NOTE | 2021-04-26 11:03 | PCM.TXEXTCAR ---
Diet 04/24/21 11:08 Diet: Regular - General Is pt able to select menu?: No Diet Comments: ensure pudding/magic cup w/ meals Routine Orders/Code Status O2 Liters per Minute: 5 O2 Frequency: Continuous Keep PO Greater than or Equal to (%): 94 Routine Lab Work: CBC (within 3 days) and - (cmp within 3 days) Code Status: Full Code Wound(s) coccyx: Wound Type: Pressure Injury cleft: Wound Type: Pressure Injury Therapies Weight Bearing: Weight bearing as tolerated Extremity Affected:: Bilateral Lower Physical Therapy: Eval and Treat Occupational Therapy: Eval and Treat Problem/Diagnosis (1) Acute alteration in mental status: Status: Resolved (2) Hypoxemia: Status: Resolved (3) Nicotine dependence, cigarettes, uncomplicated: (4) Diabetes: (5) Non-Hodgkin lymphoma: (6) RA (rheumatoid arthritis): (7) Pulmonary embolism: Status: Acute Allergies/Procedures Done in Hospital Allergies famotidine [From Pepcid] Adverse Reaction (Intermediate, Verified 04/21/21 14:29) Diarrhea levofloxacin [From Levaquin] Adverse Reaction (Intermediate, Verified 04/21/21 14:29) dizziness Procedures: 2-D Echocardiogram Type of Care/Length of Stay Estimated LOS: Convalescent Care Less Than 30 days Type of Care Needed: Skilled Rehab Potential: Good Prognosis: Good Additional Orders/Day of Discharge H&P will serve as current which was dated: 04/26/21 Day of Discharge: 04/26/21 Dietary and Speech Recommendations Dietitian Recommendations/Changes: continue regular diet given severe malnutrition; continue 120mL glucerna ONS w/ medpass for additional calories/protein if consumed. Will add ONS w/ meals additionally. Discharge Plan Admission Admit Date/Time: 04/22/21 11:01 Primary Reason for Your Visit: Debility/pneumonia/PE Attending Provider: Suze Rosas Primary Care Provider: Donna Will Consulting Providers: Anthony Singleton ; Dank Corbin Discharge Orders/Prescriptions Prescriptions: New amoxicillin-pot clavulanate 875-125 mg Tablet 875 mg PO BIDCM 2 Days Qty: 4 RF: 0 Eliquis 5 mg Tablet 10 mg PO BID 7 Days Qty: 0 RF: 0 Eliquis 5 mg Tablet 5 mg PO BID 30 Days Qty: 0 RF: 0 Glucerna 1.2 Anthony 0.06-1.2 gram-kcal/mL Liquid 120 ml PO 4X/DAY 30 Days Qty: 0 RF: 0 Continued aspirin [Adult Aspirin Regimen] 81 mg tablet,delayed release (DR/EC) 81 mg PO DAILY RF: 0 cholecalciferol (vitamin D3) 25 mcg (1,000 unit) capsule 25 mcg PO DAILY RF: 0 nitroglycerin [Nitrostat] 0.4 mg tablet, sublingual 0.4 mg SUBLINGUAL Q5M PRN (Reason: chest pain) Qty: 30 RF: 0 cyanocobalamin (vitamin B-12) 1,000 mcg capsule 1,000 mcg PO DAILY RF: 0 metformin 500 mg tablet 500 mg PO BID Qty: 180 RF: 1 glimepiride 2 mg tablet 2 mg PO DAILY Qty: 90 RF: 1 albuterol sulfate 90 mcg/actuation HFA aerosol inhaler 2 puff inhalation Q6H PRN (Reason: shortness of breath or wheezing) Qty: 6.7 RF: 0 atorvastatin 40 mg tablet 40 mg PO QHS RF: 0 ferrous sulfate 325 mg (65 mg iron) tablet 325 mg PO BID Qty: 60 RF: 0 metoprolol tartrate 25 mg tablet 25 mg PO BID Qty: 180 RF: 1 Discontinued prednisone 10 mg tablet See Taper mg PO DAILY Qty: 30 RF: 0 Referrals / Follow Up: Donna Will MD [Primary Care Provider] - Within 2 Weeks Alexi Roblero MD [STAFF PHYSICIAN] - Within 2 Weeks Disposition Disposition (needs filled in before D/C Order can be placed): Nursing Home Facility
--- NOTE | 2021-04-26 11:15 | DS.PCM_ITS ---
Providers Date of Admission: 04/22/21 Date of Discharge: 04/26/21 Primary Care Physician: Dr. Donna Will MD Consultations 04/22/21 11:15 Consult: Printing Machine Mechanic / Pulmonary Medicine Routine Consulting Provider: Anthony Singleton Reason for Consult: Respiratory failure, recurrent pna, +PE EMERGENT Consult: No Notified: Yes Date Notified: 04/22/21 Time Notified: 11:21 Method of Notification: via cortex 04/22/21 15:48 Consult: Onc/Wound/retail account manager Routine Comment: coccyx pressure ulcer 04/22/21 20:43 Consult: General Surgery Routine Consulting Provider: Dank Corbin Reason for Consult: Constipation,ileus EMERGENT Consult: No MD Notified: Yes Date Notified: 04/22/21 Time Notified: 20:43 Method of Notification: Verbal Reason For Visit: ftt adult Diagnosis Discharge Diagnosis (1) Acute alteration in mental status: Status: Resolved Code(s): R41.82 - Altered mental status, unspecified (2) Hypoxemia: Status: Resolved Code(s): R09.02 - Hypoxemia (3) Pulmonary embolism: Status: Acute Code(s): I26.99 - Other pulmonary embolism without acute cor pulmonale Qualifiers: Chronicity: acute Acute cor pulmonale presence: unspecified Medications at Discharge Home Medications aspirin 81 mg tablet,delayed release 81 mg PO DAILY 09/28/19 cholecalciferol (vitamin D3) 25 mcg (1,000 unit) capsule 25 mcg PO DAILY 07/17/20 nitroglycerin 0.4 mg sublingual tablet 0.4 mg SUBLINGUAL Q5M PRN #30 tab 09/25/20 cyanocobalamin (vitamin B-12) 1,000 mcg capsule 1,000 mcg PO DAILY 01/29/21 albuterol sulfate 2 puff INHALATION Q6H PRN #6.7 g 04/11/21 atorvastatin 40 mg PO QHS 04/21/21 amoxicillin-pot clavulanate 875 mg PO BIDCM 04/26/21 apixaban [Eliquis] 5 mg PO BID 04/26/21 apixaban [Eliquis] 10 mg PO BID 04/26/21 ferrous sulfate 325 mg PO BID 04/26/21 glimepiride 2 mg PO DAILY 04/26/21 metformin 500 mg PO BID 04/26/21 metoprolol tartrate 25 mg PO BID 04/26/21 nut.tx.gluc intol,lf,soy-fiber [Glucerna 1.2 Anthony] 120 ml PO 4X/DAY 04/26/21 Hospital Course Operations None Procedures 2-D Echocardiogram Summary of Care Provided Minutes Spent on Discharge: 40 Hospital Course: 70 y/o male with PMHx of COPD/Asthma, chronic hypoxic respiratory failure on 5 L of oxygen, type II DM, who was recently discharged after treatment for acute COPD exacerbation secondary to rhinovirus. Patient recently had COVID-19 and was discharged on 3 L of oxygen. He remained on this 3 L of oxygen. He was discharged on a prednisone taper. He presented back with generalized weakness, poor p.o. intake, inability to do activities of daily living. CTA of the chest shows bilateral pneumonia and mul tiple bilateral PE. He was started on therapeutic Lovenox and IV antibiotics. Patient was seen by PT and OT and skilled for discharge to care home facility. During his hospital stay, patient had diarrhea, C. difficile was negative. He had electrolyte imbalances that were treated. He was switched to Eliquis at discharge. He was given oral Augmentin to complete for total of 7 days at [facility]. Physical Exam Narrative Physical Exam: Gen: Comfortable, not pale, not jaundiced, slightly in respiratory distress, 5 L of oxygen CVS:HS I +II, regular, no murmurs RESP: Diminished at lung bases GI: BS present and normal, soft, nontender, no palpable organs EXT:No edema Medical Records Data Medical Nutrition Assessment Dietitian: Malnutrition Criteria Met Start: 04/22/21 13:14 Freq: Status: Active Protocol: Document 04/25/21 14:26 (Rec: 04/25/21 14:26 [id number]) Nutrition Malnutrition Evidence of Malnutrition Exists Yes Malnutrition (severe): Acute Illness/Injury Evidenced By Suboptimal Energy Intake ( Severe),Weight Loss (Severe) Clinical Problem Acute Disease or Injury Related Malnutrition Etiology severe, acute malnutrition r/t inadequate energy intake w/ acute illness Signs/Symptoms as evidenced by unintentional wt loss of 20.5#/9.4% x 1 month, estimated PO intake meeting <75% of estimated energy needs x 1 month Status Active Problem Recommendation Dietitian Recommendations/Changes continue regular diet given severe malnutrition; continue 120mL glucerna ONS w/ medpass for additional calories/ protein if consumed. Will add ONS w/ meals additionally. Weight / BMI Weight Weight: 90 kg Body Mass Index (BMI) 27.7 ABG / Lab / Microbiology Data Result Diagrams: 04/26/21 06:34 04/26/21 06:34 Laboratory: Laboratory Results - last 24 hr 04/25/21 12:02: POC Glucose 163 H 04/25/21 16:49: POC Glucose 204 H 04/25/21 21:30: POC Glucose 188 H 04/26/21 01:00: Urine Color Yellow, Urine Clarity Clear, Urine pH 6.0, Ur Specific [place] 1.010, Urine Protein 30 H, Urine Glucose (UA) Normal, Urine Ketones Negative, Urine Occult Blood 25 H, Urine Nitrite Negative, Urine Bilirubin Negative, Urine Urobilinogen Normal, Ur Leukocyte Esterase Negative, Urine RBC 0-5 SEEN, Urine WBC 0-5 SEEN, Ur Squamous Epith Cells 0 SEEN, Amorphous Sediment 1+, Urine Bacteria 2+, Urine Mucus 0 SEEN, Urine Yeast 2+ 04/26/21 06:17: POC Glucose 98 04/26/21 06:34: WBC 5.2, RBC 3.82 L, Hgb 9.5 L, Hct 30.9 L, MCV 80.9, MCH 24.9 L , MCHC 30.7 L D, RDW Std Deviation 48.0 H, RDW Coeff of Rafael 16.5 H, Plt Count 190, MPV 10.2, Immature Gran % (Auto) 0.800, Neut % (Auto) 77.3 H, Lymph % (Auto) 11.9 L, [place] % (Auto) 8.5, Eos % (Auto) 1.3, Baso % (Auto) 0.2, Absolute Neuts (auto) 4.0, Absolute Lymphs (auto) 0.62 L, Nucleated RBC % 0 04/26/21 06:34: Sodium 138, Potassium 3.4 L, Chloride 108 H, Carbon Dioxide 26.0, Anion Gap 4 L, BUN 22 H, Creatinine 1.35 H, Estim Creat Clear Calc 51.82, Est GFR (MDRD) Af Amer 67, Est GFR (MDRD) Non-Af 55 L, BUN/Creatinine Ratio 16.3, Glucose 92, Calcium 7.8 L, Phosphorus 2.5, Magnesium 1.6 Microbiology: Microbiology 04/25/21 09:55 Stool C. difficile DNA Amplification - Final 04/22/21 22:40 Sputum, Expectorated/Coughed Gram Stain - Final 04/22/21 22:40 Sputum, Expectorated/Coughed Respiratory Culture - Final Yeast Like Organism Mixed Gram Positive Organisms 04/21/21 16:56 Urine Catheter - Catheter Urine Culture - Final Yeast, not Elisha albicans Mixed Gram Positive Organisms 04/22/21 11:08 Blood Culture (Wb) - Anticubital Right Blood Culture - Preliminary No growth in 48 hours. 04/22/21 11:00 Blood Culture (Wb) - Left Forearm Blood Culture - Preliminary No growth in 48 hours. 04/22/21 12:40 Mucosa - Nasopharyngeal Respiratory Panel (PCR) - Final Rhinovirus 04/21/21 16:56 Urine Catheter - Catheter Legionella Antigen - Final 04/21/21 16:56 Urine Catheter - Catheter Streptococcus pneumoniae Antigen (M - Final Radiography Diagnostic Testing: Radiology Impression Chest X-Ray 04/25/21 16:25 IMPRESSION: Patchy bilateral airspace disease and right pleural effusion. Findings consistent with pneumonia. Recommend short term follow-up to resolution. at 1647 Reported and signed by: Abel Vásquez MD Electronically Signed: Abel Vásquez MD at 16:46 EST Reading Location ID and State: [address] [place] [address] Tel , Service support , D/C Instructions Discharge Diet: No restrictions Meaningful Use Info Meaningful Use Diagnoses (Choose all that apply): None applicable Discharge Plan Admission Admit Date/Time: 04/22/21 11:01 Primary Reason for Your Visit: Debility/pneumonia/PE Attending Provider: Suze Rosas Primary Care Provider: Donna Will Consulting Providers: Anthony Singleton ; Dank Corbin Discharge Orders/Prescriptions Prescriptions: Continued aspirin [Adult Aspirin Regimen] 81 mg tablet,delayed release (DR/EC) 81 mg PO DAILY RF: 0 cholecalciferol (vitamin D3) 25 mcg (1,000 unit) capsule 25 mcg PO DAILY RF: 0 nitroglycerin [Nitrostat] 0.4 mg tablet, sublingual 0.4 mg SUBLINGUAL Q5M PRN (Reason: chest pain) Qty: 30 RF: 0 cyanocobalamin (vitamin B-12) 1,000 mcg capsule 1,000 mcg PO DAILY RF: 0 albuterol sulfate 90 mcg/actuation HFA aerosol inhaler 2 puff inhalation Q6H PRN (Reason: shortness of breath or wheezing) Qty: 6.7 RF: 0 atorvastatin 40 mg tablet 40 mg PO QHS RF: 0 Discontinued prednisone 10 mg tablet See Taper mg PO DAILY Qty: 30 RF: 0 No Action metformin 500 mg tablet 500 mg PO BID RF: 0 glimepiride 2 mg tablet 2 mg PO DAILY RF: 0 ferrous sulfate 325 mg (65 mg iron) tablet 325 mg PO BID RF: 0 amoxicillin-pot clavulanate 875-125 mg tablet 875 mg PO BIDCM RF: 0 metoprolol tartrate 25 mg tablet 25 mg PO BID RF: 0 Glucerna 1.2 Anthony 0.06-1.2 gram-kcal/mL liquid 120 ml PO 4X/DAY RF: 0 Eliquis 5 mg tablet 10 mg PO BID RF: 0 Eliquis 5 mg tablet 5 mg PO BID RF: 0 Referrals / Follow Up: Alexi Roblero MD [STAFF PHYSICIAN] - Within 2 Weeks Donna Will MD [Primary Care Provider] - Within 2 Weeks Disposition Disposition (needs filled in before D/C Order can be placed): [facility] Facility Charges/Coding Visit Charges Inpatient E&M: 38856 Disch Hosp
--- NOTE | 2021-04-26 11:33 | CASEMGMT ---
Social Work Note Pt to discharge to TCU today. SW placed a call to Rosanna and updated her. Plan: TCU today Brittani Hernandez [employer], MECHANICAL RELIABILITY ENGINEER
[2021-04-26 12:05] LABS: Bedside Glucose 238 mg/dL (74-106)
--- NOTE | 2021-04-26 12:35 | NURSING ---
When This nurse was in patients room this morning approximately 1030, pt did not want to walking oxygen trial as pt had just got done walking with therapy and wanted to wait. Pt agreeable to do later today
[2021-04-26] MEDS: Insulin Lispro 100 UNIT/ML INSULN.PEN SC (13:19)
--- NOTE | 2021-04-26 15:52 | NURSING ---
Report given to Brittani RASCON in TCU at this time.
== END 2021-04-26 15:53 | disposition skilled nursing facility (03) | DRG 175 ==
LOC: ED 19:17 → MS3 19:30
PROVIDERS: Internal Medicine; Internal Medicine Critical Care Medicine; Nurse Practitioner Family; Admitting Provider Family Medicine; Emergency Provider Emergency Medicine; PCP Internal Medicine; Visit Provider Internal Medicine
DX: I26.99 Other pulmonary embolism without acute cor pulmonale (principal); J96.21 Acute and chronic respiratory failure with hypoxia; G93.41 Metabolic encephalopathy; E43 Unspecified severe protein-calorie malnutrition; J18.9 Pneumonia, unspecified organism; K56.7 Ileus, unspecified; D68.69 Other thrombophilia; J44.0 Chronic obstructive pulmonary disease with (acute) lower respiratory infection; J84.9 Interstitial pulmonary disease, unspecified; E11.65 Type 2 diabetes mellitus with hyperglycemia; M06.9 Rheumatoid arthritis, unspecified; E86.0 Dehydration; I10 Essential (primary) hypertension; I25.10 Atherosclerotic heart disease of native coronary artery without angina pectoris; D50.9 Iron deficiency anemia, unspecified; E78.5 Hyperlipidemia, unspecified; B97.89 Other viral agents as the cause of diseases classified elsewhere; I35.0 Nonrheumatic aortic (valve) stenosis; B96.89 Other specified bacterial agents as the cause of diseases classified elsewhere; L89.159 Pressure ulcer of sacral region, unspecified stage; F17.210 Nicotine dependence, cigarettes, uncomplicated; U09.9 Post COVID-19 condition, unspecified; R62.7 Adult failure to thrive; Z79.82 Long term (current) use of aspirin; Z74.09 Other reduced mobility; Z79.84 Long term (current) use of oral hypoglycemic drugs; Z87.891 Personal history of nicotine dependence; Z95.5 Presence of coronary angioplasty implant and graft; Z79.52 Long term (current) use of systemic steroids; Z79.899 Other long term (current) drug therapy; Z20.822 Contact with and (suspected) exposure to COVID-19; Z85.72 Personal history of non-Hodgkin lymphomas
CPT/HCPCS: 36415; 71045; 71046; 71275; 74019; 80048; 80053; 80202; 81001; 82962; 83735; 83880; 84100; 84145; 84484; 85025; 87040; 87070; 87086; 87088; 87205; 87426; 87449; 87493; 87633; 93005; 93306; 94640; 97110; 97162; 97166; 97530; 97535; 97802; 97803; 99251; 99285; 99406; J7030; J7040; J7050; Q9957; Q9967; A4216; C8929; G0463

== ENCOUNTER 2021-04-26 16:00 | Inpatient (IN) | payer MEDICARE, SELFPAY ==
[2021-04-26 16:23] VITALS: BMI 28.4
[2021-04-26 16:28] VITALS: BP 126/66; PULSE 97; RESP 20; TEMP 36.9; O2SAT 94
--- NOTE | 2021-04-26 16:42 | NURSING ---
SPOKE WITH -SHE IS GOING TO BRING IN COVID VACCINE CARD TOMORROW.
[2021-04-26] MEDS: Glucerna Shake 120 ML LIQUID PO (18:03)
[2021-04-26] MEDS: Menthol/Lanolin/Calamine/Znox 113 GM Tube 1 APPLIC TOPICAL (18:03)
[2021-04-26] MEDS: APIXABAN 5 MG TABLET 10 MG PO (18:04)
[2021-04-26 18:05] VITALS: PULSE 97
[2021-04-26] MEDS: Ferrous Sulfate 325 MG Tablet PO (18:05)
[2021-04-26] MEDS: Amox/Clavulanate 875 MG Tablet PO (18:05)
[2021-04-26] MEDS: Metoprolol Tartrate 25 MG Tablet PO (18:05)
[2021-04-26] MEDS: Glimepiride 2 MG Tablet PO (18:07)
[2021-04-26] MEDS: metFORMIN HCl 500 MG Tablet PO (18:07)
--- NOTE | 2021-04-26 19:58 | PCM.HP.STD ---
HPI - General General Date of Admission: 04/26/21 HPI Narrative 04/21/2021 SAL ALONZO, is a 70 Male who presents to [facility] Emergency Department with hyperglycemia. 04/21/2021 EKG sinus rhythm with premature atrial contractions. Lives home alone. [facility]19 hospital admission February 2021. Weak all over x 1 week. Normal Saline 1 liter IV bolus, glucose 467. 04/21/2021 Admit to Hospital. Weakness, debility, refused SNF in past. PT/OT for debility. Steroids for covid19/asthma/copd. Sliding scale insulin for hyperglycemia for steroids. 04/22/2021 Drowsy, hypoxic on venting mask, fever 101.6. CTA chest showed bilateral pulmonary embolism, therapeutic lovenox started, then oral anticoagulation. Prednisone taper for covid19/asthma/copd. 04/23/2021 Echo Normal LV size. Left ventricular systolic function normal. EF 65%. Stage 1 diastolic dysfunction. Mild aortic stenosis. 04/23/2021 Dr. Roblero recommended continue anticoagulation for pulmonary embolism. Continue prednisone taper. Follow sputum culture, continue antibiotics. Wean oxygen as tolerated. Challenge with diuretics. 04/23/2021 More alert, flat affect breathing improved. requests rehab. Vancomycin IV, Zosyn IV for pneumonia. 04/24/2021 Feels much better, oxygen 2 liters per nasal cannula. Blood culture negative, Sputum culture negative, intermittent fever, continue Vancomycin, Zosyn. PT/OT for [facility]. 04/25/2021 Intermittent fever. Stop antibiotics after 7 day course. 04/26/2021 Admit to TCU with debility, here for rehabilitation, strengthening, prior to discharge home with . REPLACED BY [facility] Medical History Allergic rhinitis Arthritis Asthma Atherosclerosis of coronary artery of [place] heart without angina pectoris Bronchitis Cancer Chronic bronchitis Colon polyp COPD (chronic obstructive pulmonary disease) COVID-19 COVID-19 in immunocompromised patient Diabetes Gastritis History of basal cell carcinoma History of diabetes mellitus, type II History of non-Hodgkin's lymphoma History of pilonidal cyst Hyperlipidemia Hypertension Iron deficiency anemia Iron deficiency anemia Lab test negative for COVID-19 virus Nicotine dependence, cigarettes, uncomplicated Non-Hodgkin lymphoma Obesity Pneumonia Pneumonia due to COVID-19 virus Positive colorectal cancer screening using Cologuard test RA (rheumatoid arthritis) Tobacco use URI (upper respiratory infection) 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 complications Home Medications aspirin 81 mg tablet,delayed release 81 mg PO DAILY 09/28/19 [History Last Taken Unknown] cholecalciferol (vitamin D3) 25 mcg (1,000 unit) capsule 25 mcg PO DAILY 07/17/20 [History Last Taken Unknown] nitroglycerin 0.4 mg sublingual tablet 0.4 mg SUBLINGUAL Q5M PRN #30 tab 09/25/20 [Rx Last Taken Unknown] cyanocobalamin (vitamin B-12) 1,000 mcg capsule 1,000 mcg PO DAILY 01/29/21 [History Last Taken Unknown] albuterol sulfate 2 puff INHALATION Q6H PRN #6.7 g 04/11/21 [Rx Last Taken Unknown] atorvastatin 40 mg PO QHS 04/21/21 [History Last Taken Unknown] amoxicillin-pot clavulanate 875 mg PO BIDCM 04/26/21 [History Last Taken Unknown] apixaban [Eliquis] 5 mg PO BID 04/26/21 [History Last Taken Unknown] apixaban [Eliquis] 10 mg PO BID 04/26/21 [History Last Taken Unknown] ferrous sulfate 325 mg PO BID 04/26/21 [History Last Taken Unknown] glimepiride 2 mg PO DAILY 04/26/21 [History Last Taken Unknown] metformin 500 mg PO BID 04/26/21 [History Last Taken Unknown] metoprolol tartrate 25 mg PO BID 04/26/21 [History Last Taken Unknown] nut.tx.gluc intol,lf,soy-fiber [Glucerna 1.2 Anthony] 120 ml PO 4X/DAY 04/26/21 [History Last Taken Unknown] Allergy/AdvReac Type Severity Reaction Status Date / Time famotidine [From Pepcid] AdvReac Intermediate Diarrhea Verified 04/21/21 14:29 levofloxacin [From Levaquin] AdvReac Intermediate dizziness Verified 04/21/21 14:29 Family History Father Arthritis Bleeding disorder Hypertension Kidney disease Cancer Skin Anemia blood clots Emphysema lung Mother Colon cancer Cancer Lung Cancer Diabetes Brother Thyroid disorder Surgical History History of coronary artery stent placement (~10/22/13) History of excision of pilonidal cyst History of thymectomy Hx of lymph node excision Social History household members: spouse Smoking Status: Former smoker second hand exposure: Yes quit status: considering quitting alcohol intake: current alcohol intake frequency: holidays/special occasions only substance use type: does not use caffeine: Yes Type: coffee Number of servings: 3 what type of physical activity do you participate in: none frequency: does not exercise seatbelt use: always ROS Constitutional Constitutional: Denies chills, fever(s) or weight gain ENT HEENT: Denies headache(s), nasal congestion or nasal discharge Cardiovascular Cardiovascular: Denies chest pain or palpitations Respiratory/Chest Respiratory/Chest: Denies cough, excessive phlegm production or shortness of breath with exertion Gastrointestinal Gastrointestinal: Denies abdominal pain, nausea or vomiting Genitourinary Genitourinary: Denies dysuria Musculoskeletal Musculoskeletal: Denies joint pain or joint swelling Integumentary Integumentary: Denies rash or wounds Neurologic Neurologic: Denies focal weakness, numbness or tingling Psychiatric Psychiatric: Denies anxiety, auditory hallucinations, depression, homicidal ideation or suicidal ideation Vital Signs Vital Signs Vital Signs: 04/26/21 16:28 04/26/21 16:43 04/26/21 18:05 Temperature 98.4 F Temperature Source Temporal Pulse Rate 97 97 Pulse Rhythm Regular Pulse Strength Normal (2+) Respiratory Rate 20 H Respiratory Effort Normal Non-Labored Respiratory Depth Normal Respiratory Pattern Normal Blood Pressure 126/66 H Blood Pressure Mean 86 Blood Pressure Source Monitor Blood Pressure Position Semi-Fowlers Blood Pressure Location Right Arm Pulse Ox 94 Oxygen Delivery Method Nasal Cannula Nasal Cannula Oxygen Flow Rate (L/min) 4 4 Weight Weight: 89.953 kg Body Mass Index (BMI) 28.4 Physical Exam Const alert and oriented x3 General Appearance: cooperative HEENT normocephalic Eyes PERRL and EOMs intact bilaterally Neck supple, no JVD and no carotid bruits Resp normal respiratory effort, normal air movement and clear to auscultation bilaterally Cardio regular rate and regular rhythm GI normal to inspection, nondistended, normoactive bowel sounds, non-tender and non-distended Extremity normal capillary refill General Extremity: Negative for edema Skin no rashes or lesions noted General Skin Exam: no breakdown Psych affect normal Appearance: appropriate Assessment & Plan Assessment/Plan (1) Debility: (2) Hyperglycemia: (3) Acute respiratory failure with hypoxia: (4) COVID-19: (5) Rhinovirus: (6) Pulmonary embolism: (7) Pneumonia: (8) Coronary artery disease: (9) Chronic obstructive pulmonary disease: (10) Vitamin D deficiency: (11) Iron deficiency anemia: (12) Vitamin B12 deficiency: (13) Diabetes mellitus: (14) Hyperlipidemia: (15) Asthma: PLAN: 70 year old male with below past medical history hospitalized for weakness secondary to covid19, complicated by acute respiratory failure with hypoxia secondary to pneumonia, rhinovirus, admitted to TCU with debility, here for rehabilitation, strengthening, prior to discharge home with . Debility - PT/OT. Pain - Tylenol 1000mg q6h prn pain (1-10). Bowel - Miralax 17gm daily, senna/colace 1 tablet bid, Dulcolax 10mg daily prn. Adult immunization - Administer prevnar 20, fluzone, covid19 vaccine as appropriate. DVT prophylaxis - Not necessary, already on Eliquis. Asthma/copd - Albuterol MDI 1 puff Q6h prn. Pneumonia - Augmentin 875mg bid thru 04/28/2021. Pulmonary embolism - Eliquis 10mg bid thru 05/03/2021, then 5mg bid. Hyperlipidemia - Atorvastatin 40mg qhs. Vitamin D deficiency - D3 25mcg daily. Vitamin B12 deficiency - B12 1000mcg daily. Iron deficiency anemia - Ferrous Sulfate 325mg bidcm. Diabetes Mellitus II - Metformin 500mg bid, Glimepiride 2mg daily. Nutrition - Glucerna Shake 120ml 4x/day. Skin irritation - Calmoseptine topical bid. Coronary artery disease - Metoprolol 25mg bid, Eliquis 5mg bid, restart Aspirin 81mg after treatment of pulmonary embolism, NTG 0.4mg sl q5m prn.
--- NOTE | 2021-04-26 21:40 | CPS ---
RN to instruct
[2021-04-26] MEDS: Senna/Docusate Sodium 1 Tablet PO (21:44)
[2021-04-26] MEDS: Atorvastatin Calcium 40 MG Tablet PO (21:44)
[2021-04-27] MEDS: 0.9% Saline Lock 10 ML Syringe IV (05:35)
[2021-04-27 05:36] VITALS: BP 113/59; PULSE 97
[2021-04-27] MEDS: Cholecalciferol (VIT D3) 25 MCG TABLET (1,000 UNITS) PO (05:36)
[2021-04-27] MEDS: Metoprolol Tartrate 25 MG Tablet PO (05:36)
[2021-04-27] MEDS: Cyanocobalamin 500 MCG Tablet 1000 MCG PO (05:37)
[2021-04-27 05:39] LABS: Absolute Lymphocyte Count 0.87 X10^3/uL (0.83-4.51); Basophil# 0.01 X10^3/uL; Basophil% 0.2 % (0-1); Eosinophil# 0.03 X10^3/uL; Eosinophils% 0.6 % (0-5); Hematocrit 28.9 % (40-54); Hemoglobin 9.4 g/dL (13.0-16.5); Lymphocyte # 0.87 X10^3/ul (0.83-4.51); Lymphocyte % 16.2 % (19-41); Mean Corp Hgb Conc 32.5 g/dL (32-36); Mean Corpuscular Hgb 25.8 pg (27.0-32.0); Mean Corpuscular Volume 79.4 fL (80-94); Mean Platelet Vol. 10.4 fl (6.2-12.0); Monocyte# 0.43 X10^3/uL; NRBC Flagged by Analyzer 0 % (0-5); Neutrophil # 3.97 X10^3/uL (2.7-7.7); Neutrophil % 73.9 % (47-70); Platelet Count 216 K/mm3 (150-450); RBC Distribution Width CV 16.6 % (11.6-14.6); RBC Distribution Width SD 46.8 fl (35.1-43.9); Red Blood Count 3.64 M/mm3 (4.6-6.2); White Blood Count 5.4 K/mm3 (4.4-11.0)
[2021-04-27] MEDS: Menthol/Lanolin/Calamine/Znox 113 GM Tube 1 APPLIC TOPICAL ×2 (05:39→17:27)
[2021-04-27 06:05] LABS: Anion Gap 6 (5-15); BUN 24 mg/dL (7-18); BUN/Creat Ratio 16.6 RATIO (10-20); Calcium,Total 7.7 mg/dL (8.5-10.1); Chloride 110 mmol/L (98-107); Creatinine, Serum 1.45 mg/dL (0.70-1.30); EST Glomerular Filtration Rate 51 mL/min (>60); Est Glom Filt Rate - Afr Amer 62 mL/min (>60); Estimated Creatinine Clearance 48.25 ml/min; Glucose 72 mg/dL (74-106); Potassium 3.5 mmol/L (3.5-5.1); Sodium Level 139 mmol/L (136-145)
[2021-04-27 06:31] LABS: Bedside Glucose 73 mg/dL (74-106)
[2021-04-27 07:33] VITALS: O2SAT 98
--- NOTE | 2021-04-27 07:46 | NURSING ---
Pt had 2 episodes of liquid, dark black, GI smelling stools. Note left for Dr. Sinha to address. Eliquis not given at this time until addressed by . Robson RASCON aware.
[2021-04-27] MEDS: Ferrous Sulfate 325 MG Tablet PO ×2 (09:26→17:26)
[2021-04-27] MEDS: metFORMIN HCl 500 MG Tablet PO ×2 (09:26→17:26)
[2021-04-27] MEDS: APIXABAN 5 MG TABLET 10 MG PO ×2 (09:26→17:27)
[2021-04-27] MEDS: Amox/Clavulanate 875 MG Tablet PO ×2 (09:26→17:26)
[2021-04-27] MEDS: Tuberculin,Purif.prot.deriv. 50 TU/ML Vial 0.1 ML ID (12:10)
[2021-04-27 13:33] VITALS: BP 124/52; PULSE 91; RESP 17; TEMP 36.6; O2SAT 92
--- NOTE | 2021-04-27 13:35 | CASEMGMT ---
Social Work Met with patient for initial assessment. Pt wishes to have be primary contact and remain involved in updates/Dc plans. Chart reflects. Discussed code status and MOLST form. Pt confirmed full code. MOLST communicated to , and placed in chart. Explained [employer] insurance with NRD 04/30 and continued stay is not guaranteed with each review. The goal is for pt to return home with . Per pt, was assisting with all ADLs and IADLs. Pt has 2 steps to enter. Although pt scored 15/15 on BIMS, during assessment pt changed his answers and took extra time to process. Pt admitted being foggy and needing extra time to process. Relayed to ST - order entered. SW to continue to follow for DC planning. Sofiya Marquez, PODIATRY ASSISTANT [employer] DEAN
[2021-04-27] MEDS: Glimepiride 2 MG Tablet PO (17:26)
[2021-04-27 17:28] VITALS: BP 85/44; PULSE 85
[2021-04-27] MEDS: Atorvastatin Calcium 40 MG Tablet PO (21:20)
[2021-04-27] MEDS: Mirtazapine 15 MG Tablet 7.5 MG PO (21:20)
[2021-04-27 21:30] VITALS: BP 99/57; PULSE 84; RESP 20; TEMP 36.7; O2SAT 93
[2021-04-28 04:44] VITALS: BP 105/57; PULSE 107; RESP 18; TEMP 36.4; O2SAT 90
[2021-04-28 04:47] VITALS: PULSE 107
[2021-04-28] MEDS: Metoprolol Tartrate 25 MG Tablet PO (04:47)
[2021-04-28] MEDS: Cyanocobalamin 500 MCG Tablet 1000 MCG PO (04:48)
[2021-04-28] MEDS: APIXABAN 5 MG TABLET 10 MG PO ×2 (04:48→17:17)
[2021-04-28] MEDS: Cholecalciferol (VIT D3) 25 MCG TABLET (1,000 UNITS) PO (04:49)
[2021-04-28] MEDS: Menthol/Lanolin/Calamine/Znox 113 GM Tube 1 APPLIC TOPICAL ×2 (04:49→17:18)
[2021-04-28] MEDS: Senna/Docusate Sodium 1 Tablet PO ×2 (04:49→17:15)
[2021-04-28 06:25] LABS: Bedside Glucose 163 mg/dL (74-106)
[2021-04-28] MEDS: Ferrous Sulfate 325 MG Tablet PO ×2 (08:15→17:16)
[2021-04-28] MEDS: Amox/Clavulanate 875 MG Tablet PO ×2 (08:15→17:15)
[2021-04-28] MEDS: metFORMIN HCl 500 MG Tablet PO (08:15)
[2021-04-28 13:37] VITALS: BP 112/58; PULSE 69; RESP 14; TEMP 36.7; O2SAT 94
--- NOTE | 2021-04-28 16:28 | NURSING ---
Pt c/o of feeling more tired then normal. Pt's blood sugar 69 gave pt requested peanut butter and ice cream. Will continue to monitor. Call light within reach and at bedside.
[2021-04-28 16:31] LABS: Bedside Glucose 69 mg/dL (74-106)
[2021-04-28 17:18] VITALS: BP 105/45; PULSE 94
[2021-04-28 18:01] LABS: Bedside Glucose 69 mg/dL (74-106)
[2021-04-28] MEDS: 0.9% Saline Lock 10 ML Syringe IV (18:46)
[2021-04-28 19:56] LABS: Bedside Glucose 67 mg/dL (74-106)
[2021-04-28 21:00] VITALS: PULSE 124; RESP 20
[2021-04-28 21:15] VITALS: BP 94/51; PULSE 125; RESP 20; TEMP 38.3
[2021-04-28 21:21] LABS: Bedside Glucose 62 mg/dL (74-106)
[2021-04-28 21:46] LABS: Bedside Glucose 77 mg/dL (74-106)
[2021-04-28 21:46] LABS: Bedside Glucose 69 mg/dL (74-106)
--- NOTE | 2021-04-28 22:30 | RAD_ITS ---
EXAM: XR ABDOMEN, 1 VIEW : 1950 CLINICAL INDICATION: fever TECHNIQUE: Frontal supine view of the abdomen/pelvis. This report was created using [employer] report generation technology. COMPARISON: None. FINDINGS: LOWER THORAX: No acute pathology. GASTROINTESTINAL TRACT: Unremarkable. Non-obstructive. No bowel or stomach distention. ORGANS: Unremarkable as visualized. No organomegaly. No abnormal calcifications. BONES/JOINTS: No acute pathology. SOFT TISSUES: No acute pathology. RAD/Abdomen Single View IMPRESSION: Non-obstructive bowel gas pattern. at 2343 Reported and signed by: Bebeto Snider MD Electronically Signed: Bebeto Snider MD at 23:41 EST ,
--- NOTE | 2021-04-28 22:30 | RAD_ITS ---
EXAM: XR CHEST, 2 VIEWS : 1950 CLINICAL INDICATION: fever, recent pneumonia TECHNIQUE: Frontal and lateral views of the chest. This report was created using [employer] report generation technology. COMPARISON: 04/25/2021 FINDINGS: LUNGS AND PLEURAL SPACES: There is increasing airspace disease in the left upper lobe compatible with developing left upper lobe pneumonia. There is blunting of the costophrenic angles which may represent trace effusion. No pneumothorax. HEART: Unremarkable. Cardiac silhouette not enlarged. MEDIASTINUM: Central airways and mediastinal contour are unremarkable. BONES/JOINTS: Unremarkable. SOFT TISSUES: Unremarkable. RAD/Chest PA and Lateral IMPRESSION: Increasing left upper lobe airspace disease compatible with progression of pneumonia. There is a trace left-sided effusion. at 2341 Reported and signed by: Bebeto Snider MD Electronically Signed: Bebeto Snider MD at 23:39 EST ,
[2021-04-28 22:32] LABS: Absolute Lymphocyte Count 0.59 X10^3/uL (0.83-4.51); Absolute Neutrophil Count 3.6 X10^3/uL (2.0-7.7); Basophil# 0.01 X10^3/uL; Basophil% 0.2 % (0-1); Eosinophil# 0.08 X10^3/uL; Eosinophils% 1.7 % (0-5); Hematocrit 30.8 % (40-54); Hemoglobin 9.7 g/dL (13.0-16.5); Lymphocyte # 0.59 X10^3/ul (0.83-4.51); Lymphocyte % 12.8 % (19-41); Mean Corp Hgb Conc 31.5 g/dL (32-36); Mean Corpuscular Volume 82.6 fL (80-94); Mean Platelet Vol. 10.5 fl (6.2-12.0); Monocyte# 0.35 X10^3/uL; Monocyte% 7.6 % (0-10); NRBC Flagged by Analyzer 0 % (0-5); Neutrophil # 3.56 X10^3/uL (2.7-7.7); Neutrophil % 77.1 % (47-70); POSITIVE DIFFERENTIAL YES; Platelet Count 247 K/mm3 (150-450); RBC Distribution Width CV 17.1 % (11.6-14.6); RBC Distribution Width SD 50.5 fl (35.1-43.9); Red Blood Count 3.73 M/mm3 (4.6-6.2); White Blood Count 4.6 K/mm3 (4.4-11.0)
[2021-04-28 22:33] LABS: Differential Indicated SCAN CRITERIA MET
[2021-04-28] MEDS: 0.9% Normal Saline 1,000 ML 999 ML IV (22:45)
[2021-04-28 22:48] LABS: Acanthocytes RARE; Anisocytosis 1+
[2021-04-28 22:49] LABS: Ovalocyte RARE
[2021-04-28] MEDS: Glucagon 1 MG/ML Syringe IV (22:50)
[2021-04-28 22:54] LABS: Anion Gap 7 (5-15); BUN 29 mg/dL (7-18); BUN/Creat Ratio 18.7 RATIO (10-20); Calcium,Total 8.9 mg/dL (8.5-10.1); Chloride 110 mmol/L (98-107); Creatinine, Serum 1.55 mg/dL (0.70-1.30); EST Glomerular Filtration Rate 47 mL/min (>60); Est Glom Filt Rate - Afr Amer 57 mL/min (>60); Estimated Creatinine Clearance 45.13 ml/min; Glucose 86 mg/dL (74-106); Potassium 3.6 mmol/L (3.5-5.1); Sodium Level 141 mmol/L (136-145)
[2021-04-28] MEDS: Mirtazapine 15 MG Tablet 7.5 MG PO (23:02)
[2021-04-28] MEDS: Acetaminophen 500 MG Tablet 1000 MG PO (23:02)
[2021-04-28] MEDS: Atorvastatin Calcium 40 MG Tablet PO (23:03)
--- NOTE | 2021-04-29 00:05 | PCM.RX.CS ---
Consult Pharmacy has been consulted to manage selected antiobiotic: Vancomycin Type of Consult: New start Suspected Infection: Pneumonia Prior Doses of Antibiotics Received/Current Regimen: Medications Vancomycin HCl 1,250 mg/ (Sodium Chloride) 275 mls @ 167 mls/hr IV Q24H AJIT Vancomycin HCl 1,250 mg/ (Sodium Chloride) 275 mls @ 167 mls/hr IV X1 ONE Stop: 04/29/21 00:08 Last Admin: 04/28/21 23:45 Dose: 167 mls/hr Labs: Sodium 141 mmol/L (136-145) 04/28/21 22:02 Potassium 3.6 mmol/L (3.5-5.1) 04/28/21 22:02 Chloride 110 mmol/L (98-107) H 04/28/21 22:02 Carbon Dioxide 24.0 mmol/L (21.0-32.0) 04/28/21 22:02 Anion Gap 7 (5-15) 04/28/21 22:02 BUN 29 mg/dL (7-18) H 04/28/21 22:02 Creatinine 1.55 mg/dL (0.70-1.30) H 04/28/21 22:02 Est GFR (MDRD) Af Amer 57 mL/min (>60) L 04/28/21 22:02 Est GFR (MDRD) Non-Af 47 mL/min (>60) L 04/28/21 22:02 BUN/Creatinine Ratio 18.7 RATIO (10-20) 04/28/21 22:02 Glucose 86 mg/dL (74-106) 04/28/21 22:02 Weight used for dosin kg Estimated Creatinine Clearance: 45 Goal Trough: 10-15 mcg/mL Pharmacy Plan for Drug Dosing: Pharmacy Service will continue to monitor and adjust dosing as required. Follow-Up Labs: Trough Vancomycin Labs to be done on [date and time ordered]: 04/30/21 @2300
--- NOTE | 2021-04-29 00:21 | NURSING ---
Checked blood sugar around 1945, sugar in the 60s. Patient asymptomatic, refused to eat/drink anything but ice cream and a few sips of coke. On re-check still in the 60s, patient drank some juice, sugar came up to 77. Patient has had poor intake today. Assessment done and vitals checked. BP low, tachycardic w/ pulse in the 120s. Oral temp of 101, some crackles heard in lungs on auscultation. 2114-Updated Dr. Sinha of assessment and vitals. Order for blood cultures, CBC, BMP, KUB, cxray, UA w/ culture, glucagon, NS bolus then D51/2NS @75, vanc, zosyn and to DC diabetic medications. Patient refused straight cath for urine sample, will collect as clean catch when able, patient mostly incontinent.
[2021-04-29 00:51] LABS: Bedside Glucose 95 mg/dL (74-106)
[2021-04-29 01:34] VITALS: BP 107/47; PULSE 103; RESP 22; TEMP 37; O2SAT 92
[2021-04-29] MEDS: Dext 5%-0.45% NS 1,000 ML 75 ML IV (01:37)
[2021-04-29 02:10] VITALS: PULSE 88; RESP 20; O2SAT 92
[2021-04-29 06:11] LABS: Bedside Glucose 98 mg/dL (74-106)
[2021-04-29] MEDS: 0.9% Saline Lock 10 ML Syringe IV (06:12)
[2021-04-29] MEDS: Polyethylene Glycol 3350 17 GM PACKET PO (06:15)
[2021-04-29] MEDS: Cholecalciferol (VIT D3) 25 MCG TABLET (1,000 UNITS) PO (06:16)
[2021-04-29] MEDS: Cyanocobalamin 500 MCG Tablet 1000 MCG PO (06:16)
[2021-04-29] MEDS: APIXABAN 5 MG TABLET 10 MG PO (06:16)
[2021-04-29] MEDS: Senna/Docusate Sodium 1 Tablet PO (06:16)
[2021-04-29 06:17] VITALS: BP 108/54; PULSE 70
[2021-04-29 07:01] LABS: Bedside Glucose 103 mg/dL (74-106)
[2021-04-29] MEDS: Ferrous Sulfate 325 MG Tablet PO (08:07)
--- NOTE | 2021-04-29 09:52 | NURSING ---
Pt has not voided has tried multiple times in order to get Sample for Urinalysis. Pt Bladder scanned for 650ml pt refusing to be straight Cath to get culture for UA. Pt stated the only way you are going to straight cath me if you put me to sleep. Will continue to monito pt. Call light within reach.
--- NOTE | 2021-04-29 10:41 | NURSING ---
Pt noted to be shivering even with several blankets on and pale in color. BP 117/50 Pulse 111 Spo2 86% 4L NC turned O2 up to 6L NC rechecked SpO2 88% NC 6L Pt denied feeling SOB. Pt placed on Non rebreather and Dr. Sinha updated. Per Dr. Sinha's order sent pt to Emergency Room. Report called to ER Nurse and pt sent to ER at this time. Updated.
--- NOTE | 2021-04-30 07:56 | PCM.DC.SUM ---
Providers Date of Admission: 04/26/21 Primary Care Physician: Dr. Donna Will MD Diagnosis Discharge Diagnosis (1) Debility: Status: Acute Code(s): R53.81 - Other malaise (2) Hyperglycemia: Status: Acute Code(s): R73.9 - Hyperglycemia, unspecified (3) Acute respiratory failure with hypoxia: Status: Acute Code(s): J96.01 - Acute respiratory failure with hypoxia (4) COVID-19: Status: Acute Code(s): U07.1 - COVID-19 (5) Rhinovirus: Status: Acute Code(s): B34.8 - Other viral infections of unspecified site (6) Pulmonary embolism: Status: Acute Code(s): I26.99 - Other pulmonary embolism without acute cor pulmonale (7) Pneumonia: Status: Acute Code(s): J18.9 - Pneumonia, unspecified organism (8) Coronary artery disease: Status: Acute Code(s): I25.10 - Atherosclerotic heart disease of [place] coronary artery without angina pectoris (9) Chronic obstructive pulmonary disease: Status: Chronic Code(s): J44.9 - Chronic obstructive pulmonary disease, unspecified (10) Vitamin D deficiency: Status: Acute Code(s): E55.9 - Vitamin D deficiency, unspecified (11) Iron deficiency anemia: Status: Acute Code(s): D50.9 - Iron deficiency anemia, unspecified (12) Vitamin B12 deficiency: Status: Acute Code(s): E53.8 - Deficiency of other specified B group vitamins (13) Diabetes mellitus: Status: Acute Code(s): E11.9 - Type 2 diabetes mellitus without complications (14) Hyperlipidemia: Status: Acute Code(s): E78.5 - Hyperlipidemia, unspecified (15) Asthma: Status: Acute Code(s): J45.909 - Unspecified asthma, uncomplicated Medications at Discharge Home Medications aspirin 81 mg tablet,delayed release 81 mg PO DAILY 09/28/19 cholecalciferol (vitamin D3) 25 mcg (1,000 unit) capsule 25 mcg PO DAILY 07/17/20 nitroglycerin 0.4 mg sublingual tablet 0.4 mg SUBLINGUAL Q5M PRN #30 tab 09/25/20 cyanocobalamin (vitamin B-12) 1,000 mcg capsule 1,000 mcg PO DAILY 01/29/21 albuterol sulfate 2 puff INHALATION Q6H PRN #6.7 g 04/11/21 atorvastatin 40 mg PO QHS 04/21/21 amoxicillin-pot clavulanate 875 mg PO BIDCM 04/26/21 apixaban [Eliquis] 10 mg PO BID 04/26/21 ferrous sulfate 325 mg PO BID 04/26/21 glimepiride 2 mg PO BID 04/26/21 metformin 500 mg PO BID 04/26/21 metoprolol tartrate 25 mg PO BID 04/26/21 nut.tx.gluc intol,lf,soy-fiber [Glucerna 1.2 Anthony] 120 ml PO 4X/DAY 04/26/21 mirtazapine [Remeron] 7.5 mg PO QHS 04/29/21 piperacillin-tazobactam [Zosyn] 3.375 g IV Q8H 04/29/21 polyethylene glycol 3350 [Miralax] 17 g PO DAILY 04/29/21 senna-docusate sodium 1 tab PO DAILY 04/29/21 vancomycin in 0.9 % sodium chl 125 mg IV Q12H 04/29/21 Hospital Course Operations None Procedures None Summary of Care Provided Minutes Spent on Discharge: 15 Hospital Course: 70 year old male with below past medical history hospitalized for weakness secondary to covid19, complicated by acute respiratory failure with hypoxia secondary to pneumonia, rhinovirus, admitted to TCU with debility, here for rehabilitation, strengthening, prior to discharge home with . 04/28/2021 Resident hypotensive, tachcardia, fever 100.9. Labs ordered, blood cultures sent, CXR, KUB. Resident started on Vancomycin, Zosyn, IV fluids. 04/29/2021 Resident pale, chills, rigors. 04/29/2021 Discharge to [facility] Emergency Department for evaluation/admission to hospital. Weight / BMI Weight Weight: 89.953 kg Body Mass Index (BMI) 28.4 ABG / Lab / Microbiology Data Result Diagrams: 04/28/21 22:02 04/28/21 22:02 D/C Instructions Discharge Diet: No restrictions Discharge Activity: Return to Normal Activity Weight Bearing Status: Weight bearing as tolerated Call your doctor if you observe: Fever of 101 or Higher, Inability to urinate, Inability to have a bowel movement, Shortness of breath, Dizziness, Fainting spells, Swelling in the ankles, Chest pain and Uncontrolled pain Additional Instructions: 04/29/2021 Discharge to [facility] Emergency Department for evaluation/admission to hospital. Please Follow Up With: Alexi Roblero MD Meaningful Use Info Meaningful Use Diagnoses (Choose all that apply): None applicable Discharge Plan Admission Admit Date/Time: 04/26/21 16:00 Primary Reason for Your Visit: Debility. Attending Provider: Silas Sinha Chi Primary Care Provider: Donna Will Instructions Additional Instructions / Restrictions: 04/29/2021 Discharge to [facility] Emergency Department for evaluation/admission to hospital. Discharge Orders/Prescriptions Prescriptions: No Action aspirin [Adult Aspirin Regimen] 81 mg tablet,delayed release (DR/EC) 81 mg PO DAILY RF: 0 cholecalciferol (vitamin D3) 25 mcg (1,000 unit) capsule 25 mcg PO DAILY RF: 0 nitroglycerin [Nitrostat] 0.4 mg tablet, sublingual 0.4 mg SUBLINGUAL Q5M PRN (Reason: chest pain) Qty: 30 RF: 0 cyanocobalamin (vitamin B-12) 1,000 mcg capsule 1,000 mcg PO DAILY RF: 0 albuterol sulfate 90 mcg/actuation HFA aerosol inhaler 2 puff inhalation Q6H PRN (Reason: shortness of breath or wheezing) Qty: 6.7 RF: 0 atorvastatin 40 mg tablet 40 mg PO QHS RF: 0 metformin 500 mg tablet 500 mg PO BID RF: 0 glimepiride 2 mg tablet 2 mg PO BID RF: 0 ferrous sulfate 325 mg (65 mg iron) tablet 325 mg PO BID RF: 0 amoxicillin-pot clavulanate 875-125 mg tablet 875 mg PO BIDCM RF: 0 metoprolol tartrate 25 mg tablet 25 mg PO BID RF: 0 Glucerna 1.2 Anthony 0.06-1.2 gram-kcal/mL liquid 120 ml PO 4X/DAY RF: 0 Eliquis 5 mg tablet 10 mg PO BID RF: 0 polyethylene glycol 3350 [Miralax] 17 gram Powder In Packet 17 g PO DAILY RF: 0 mirtazapine [Remeron] 15 mg Tablet 7.5 mg PO QHS RF: 0 senna-docusate sodium Tablet 1 tab PO DAILY RF: 0 piperacillin-tazobactam [Zosyn] 3.375 gram Recon Soln 3.375 g IV Q8H RF: 0 vancomycin in 0.9 % sodium chl 1.25 gram/150 mL Solution 125 mg IV Q12H RF: 0 Referrals / Follow Up: Donna Will MD [Primary Care Provider] - Disposition Disposition (needs filled in before D/C Order can be placed): Acute Care Hospital [facility]
--- NOTE | 2021-05-07 12:36 | MDS.RN ---
Information for the mds was obtained from review of the clinical record, interview of resident, staff, and direct observation of resident's care.
== END 2021-04-29 20:00 | disposition short-term general hospital (02) | DRG 193 ==
PROVIDERS: Admitting Provider Family Medicine Geriatric Medicine; PCP Internal Medicine; Visit Provider Family Medicine Geriatric Medicine
DX: J18.9 Pneumonia, unspecified organism (principal); J96.01 Acute respiratory failure with hypoxia; I26.99 Other pulmonary embolism without acute cor pulmonale; J44.0 Chronic obstructive pulmonary disease with (acute) lower respiratory infection; E11.9 Type 2 diabetes mellitus without complications; D50.9 Iron deficiency anemia, unspecified; E53.8 Deficiency of other specified B group vitamins; E78.5 Hyperlipidemia, unspecified; E55.9 Vitamin D deficiency, unspecified; I10 Essential (primary) hypertension; I25.10 Atherosclerotic heart disease of native coronary artery without angina pectoris; Z79.01 Long term (current) use of anticoagulants; Z87.891 Personal history of nicotine dependence; Z79.82 Long term (current) use of aspirin; Z79.899 Other long term (current) drug therapy; Z86.16 Personal history of COVID-19
CPT/HCPCS: 71046; 74018; 80048; 82962; 85025; 87040; 92507; 92523; 92610; 97110; 97162; 97166; 97530; 97535; 97802; 99406; J7030; J7050; A4216; J1610; J7799

== ENCOUNTER 2021-04-29 10:43 | Inpatient (IN) | payer MEDICARE, SELFPAY ==
[2021-04-29] VITALS (11 sets, daily range): BP systolic 95–140; BP diastolic 51–74; PULSE 89–122; RESP 18–28; TEMP 36.7–37.7; O2SAT 90–100; BMI 32.1; BMI 27.9
[2021-04-29 11:06] LABS: Bedside Glucose 113 mg/dL (74-106)
--- NOTE | 2021-04-29 11:09 | EDS_ITS ---
HPI History of Present Illness Chief Complaint: Shortness of Breath Informant: patient and spouse/S.O. Onset/Context/Timing Onset: Today Context: sudden Timing: Continuous Worsened by: Nothing Relieved by: Nothing Associated Symptoms cough, fever and yellow sputum; Negative for rhinorrhea, ear pain, sore throat or chills Chest Pain: Positive for None Narrative Narrative: Patient presents with shortness of breath that became worse today. Patient is a resident in the TCU and was on 4 L nasal cannula oxygen for treatment for PE and pneumonia. Patient oxygen saturation noted to be low today. Patient was increased to 6 L. Patient's oxygen saturation was 86% on 6 L. Patient was then placed on a nonrebreather mask and transferred to the emergency department for further evaluation. Patient denies any chest pain. Patient admits to a mild cough with some yellow sputum production. [facility] Medical History Allergic rhinitis Arthritis Asthma Atherosclerosis of coronary artery of [place] heart without angina pectoris Bronchitis Cancer Chronic bronchitis Colon polyp COPD (chronic obstructive pulmonary disease) COVID-19 COVID-19 in immunocompromised patient Diabetes Gastritis History of basal cell carcinoma History of diabetes mellitus, type II History of non-Hodgkin's lymphoma History of pilonidal cyst Hyperlipidemia Hypertension Iron deficiency anemia Iron deficiency anemia Lab test negative for COVID-19 virus Nicotine dependence, cigarettes, uncomplicated Non-Hodgkin lymphoma Obesity Pneumonia Pneumonia due to COVID-19 virus Positive colorectal cancer screening using Cologuard test RA (rheumatoid arthritis) Tobacco use URI (upper respiratory infection) 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 complications Home Medications aspirin 81 mg tablet,delayed release 81 mg PO DAILY 09/28/19 [History Last Taken Unknown] cholecalciferol (vitamin D3) 25 mcg (1,000 unit) capsule 25 mcg PO DAILY 07/17/20 [History Last Taken 04/29/21] nitroglycerin 0.4 mg sublingual tablet 0.4 mg SUBLINGUAL Q5M PRN #30 tab 04/16 [Rx Last Taken Unknown] cyanocobalamin (vitamin B-12) 1,000 mcg capsule 1,000 mcg PO DAILY 01/29/21 [History Last Taken 04/29/21] albuterol sulfate 2 puff INHALATION Q6H PRN #6.7 g 04/11/21 [Rx Last Taken Unknown] atorvastatin 40 mg PO QHS 04/21/21 [History Last Taken 04/28/21] amoxicillin-pot clavulanate 875 mg PO BIDCM 04/26/21 [History Last Taken Unknown] apixaban [Eliquis] 10 mg PO BID 04/26/21 [History Last Taken 04/29/21] ferrous sulfate 325 mg PO BID 04/26/21 [History Last Taken 04/29/21] glimepiride 2 mg PO BID 04/26/21 [History Last Taken Unknown] metformin 500 mg PO BID 04/26/21 [History Last Taken 04/29/21] metoprolol tartrate 25 mg PO BID 04/26/21 [History Last Taken 04/29/21] nut.tx.gluc intol,lf,soy-fiber [Glucerna 1.2 Anthony] 120 ml PO 4X/DAY 04/26/21 [History Last Taken Unknown] mirtazapine [Remeron] 7.5 mg PO QHS 04/29/21 [History Last Taken 04/28/21] piperacillin-tazobactam [Zosyn] 3.375 g IV Q8H 04/29/21 [History Last Taken 04/29/21] polyethylene glycol 3350 [Miralax] 17 g PO DAILY 04/29/21 [History Last Taken 04/29/21] senna-docusate sodium 1 tab PO DAILY 04/29/21 [History Last Taken 04/29/21] vancomycin in 0.9 % sodium chl 125 mg IV Q12H 04/29/21 [History Last Taken 04/28/21] Allergy/AdvReac Type Severity Reaction Status Date / Time famotidine [From Pepcid] AdvReac Intermediate Diarrhea Verified 04/29/21 10:45 levofloxacin [From Levaquin] AdvReac Intermediate dizziness Verified 04/29/21 10:45 Family History Father Arthritis Bleeding disorder Hypertension Kidney disease Cancer Skin Anemia blood clots Emphysema lung Mother Colon cancer Cancer Lung Cancer Diabetes Brother Thyroid disorder Surgical History History of coronary artery stent placement (~10/22/13) History of excision of pilonidal cyst History of thymectomy Hx of lymph node excision Social History household members: spouse Smoking Status: Former smoker second hand exposure: Yes quit status: considering quitting alcohol intake: current alcohol intake frequency: holidays/special occasions only substance use type: does not use caffeine: Yes Type: coffee Number of servings: 3 what type of physical activity do you participate in: none frequency: does not exercise seatbelt use: always ROS ROS ED Constitutional Constitutional ED: Reports fever(s); Denies chills Eyes Eyes: Denies blurry vision or change in vision ENT ENT ED: Denies ear pain, rhinorrhea or sore throat Cardiovascular Cardiovascular: Reports chest pain; Denies palpitations Respiratory/Chest Respiratory/Chest: Reports cough and dyspnea Gastrointestinal Gastrointestinal: Denies nausea or vomiting Genitourinary Genitourinary ED: Denies dysuria or hematuria Musculoskeletal Musculoskeletal: Denies back pain or neck pain Integumentary Denies abscess or rash Neurologic Neurologic: Denies headache(s) or weakness Allergic/Immunologic Allergic/Immunologic ED: Denies mouth swelling or urticaria EXAM Physical Exam Const Vital Signs: 04/29/21 10:45 04/29/21 10:51 04/29/21 11:09 Temperature 99.8 F H 99.3 F H Temperature Source Temporal Oral Pulse Rate 108 H Respiratory Rate 28 H Respiratory Effort Short of Breath Respiratory Pattern Tachypnea Blood Pressure 121/74 H Blood Pressure Mean 89 Pulse Ox 100 Oxygen Delivery Method Non-Rebreather Oxygen Flow Rate (L/min) 15 04/29/21 11:26 04/29/21 11:41 04/29/21 12:16 Temperature 99.3 F H Temperature Source Temporal Pulse Rate 111 H 122 H Respiratory Rate 24 H 24 H Respiratory Effort Respiratory Pattern Blood Pressure 127/63 H Blood Pressure Mean 84 Pulse Ox 90 91 94 Oxygen Delivery Method Nasal Cannula Nasal Cannula Nasal Cannula Oxygen Flow Rate (L/min) 6 6 6 Positive well nourished and well developed General Appearance ED: well developed and NAD HEENT Reports moist mucous membranes Neck supple and no JVD Resp normal respiratory effort and clear to auscultation bilaterally Cardio regular rate and regular rhythm GI non-tender and non-distended Auscultation: normoactive bowel sounds Palpation: soft Neuro oriented x3, CN's II-XII intact bilaterally and no sensory deficits noted Sensorium / Orientation: alert Motor Exam: strength 5/5 throughout Psych mental status grossly normal MDM MDM MDM Narrative Medical decision making narrative: Patient was given IV fluids initially. Patient was given a DuoNeb aerosol here. Patient was given a dose of Tylenol. EKG was obtained. On my interpretation it shows a sinus tachycardia with a rate of 113. There are nonspecific ST-T wave changes. NC interval, QRS interval, and QTc intervals are normal. Drury is normal. CBC shows a mild anemia with a hemoglobin of 8.2 hematocrit of 26.1. Patient metabolic profile shows a BUN of 28 and creatinine of 1.44. These are consistent with prior results. High- sensitivity troponin was normal at 24. Lactate was normal at 1.7. BNP was normal. CTA of the chest was obtained. There is no evidence of pulmonary embolism. There is bibasilar subsegmental atelectasis, pneumonitis, pulmonary edema, or ARDS. There is a moderate left pleural effusion with left lower lobe atelectasis. This was interpreted by the radiologist and reviewed by myself. Patient was given a dose of Lasix here. Case was discussed with the hospitalist. She will admit the patient to her service. Patient and family understood and were agreeable with the plan. All questions were answered. Lab Data Attestation: I reviewed the patient's lab results. Labs: Laboratory Results - last 24 hr 04/29/21 04/29/21 04/29/21 10:59 11:03 11:03 WBC 6.7 RBC 3.18 L Hgb 8.2 L Hct 26.1 L MCV 82.1 MCH 25.8 L MCHC 31.4 L RDW Std Deviation 50.5 H RDW Coeff of Rafael 17.0 H Plt Count 301 MPV 10.5 Immature Gran % (Auto) 1.300 H Neut % (Auto) 80.3 H Lymph % (Auto) 9.2 L Cuming % (Auto) 7.0 Eos % (Auto) 1.9 Baso % (Auto) 0.3 Absolute Neuts (auto) 5.4 Absolute Lymphs (auto) 0.62 L Nucleated RBC % 0 Sodium 142 Potassium 4.0 Chloride 113 H Carbon Dioxide 24.0 Anion Gap 5 BUN 28 H Creatinine 1.44 H Estim Creat Clear Calc 48.58 Est GFR (MDRD) Af Amer 62 Est GFR (MDRD) Non-Af 51 L BUN/Creatinine Ratio 19.4 Glucose 114 H Lactic Acid Calcium 8.6 Troponin I High Sens 24 B-Natriuretic Peptide POC Glucose 113 H 04/29/21 04/29/21 11:03 11:03 WBC RBC Hgb Hct MCV MCH MCHC RDW Std Deviation RDW Coeff of Rafael Plt Count MPV Immature Gran % (Auto) Neut % (Auto) Lymph % (Auto) Cuming % (Auto) Eos % (Auto) Baso % (Auto) Absolute Neuts (auto) Absolute Lymphs (auto) Nucleated RBC % Sodium Potassium Chloride Carbon Dioxide Anion Gap BUN Creatinine Estim Creat Clear Calc Est GFR (MDRD) Af Amer Est GFR (MDRD) Non-Af BUN/Creatinine Ratio Glucose Lactic Acid 1.7 Calcium Troponin I High Sens B-Natriuretic Peptide 65.0 POC Glucose Radiography Diagnostic Testing: Clinical Impression(s) from Imaging Studies Chest CTA 04/29/21 11:15 IMPRESSION: 1. No CT evidence of pulmonary embolism. 2. Moderate bilateral subsegmental atelectasis, pneumonitis, pulmonary edema, or ARDS. 3. Moderate left pleural effusion with left lower lobe atelectasis. Electronically Signed: Boston Myers MD at 12:28 EST , EKG Initial EKG: Attestation: I personally reviewed and interpreted this EKG as follows: Interpretation: No Acute Injury Pattern, Sinus Tachycardia (113) and Non- Specific ST Changes Prior EKG tracings: available for review Prior: Unchanged (04/21/2021) Treatment and Re-Evaluation Vital Sign Attestation:: Vital signs were reviewed prior to admission. They are stable. Discharge Plan Dx/Rx/DC Orders Clinical Impression: Dyspnea, Pleural effusion Disposition Disposition: Acute Care Hospital [facility] Discharge Date/Time: 04/29/21 15:13
--- NOTE | 2021-04-29 11:14 | EKG12_ITS ---
Test Reason : SOB Blood Pressure : / mmHG Vent. Rate : 113 BPM Atrial Rate : 113 BPM P-R Int : 160 ms QRS Dur : 092 ms QT Int : 330 ms P-R-T Axes : 055 047 119 degrees QTc Int : 452 ms Sinus tachycardia Nonspecific ST and T wave abnormality Abnormal ECG Confirmed by IAM TEIXEIRA, HAVEN ([id number]), business editor AVINASH MARTINEZ ([id number]) on 05/01/2021 9:10:58 AM Referred By: HIGINIO Confirmed By:HAVEN VITALE MD
--- NOTE | 2021-04-29 11:15 | CT_ITS ---
STUDY: CTA CHEST REASON FOR EXAM: Male, 70 years old. Pulmonary embolism RADIATION DOSAGE (If Supplied By Facility): CTDIvol = ( 12.44 ) mGy, DLP = ( 493.61 ) mGycm TECHNIQUE: The examination was performed with the intravenous administration of IV 100mL Isovue-370. Post-processing of the angiographic images was performed, with multiplanar reformation and 3D reconstruction. Individualized dose optimization techniques were used for this CT. COMPARISON: 04/22/2021 FINDINGS: Status post median sternotomy. Normal enhancement of the main pulmonary artery and right and left pulmonary arteries. Normal enhancement of the bilateral peripheral pulmonary arteries. There is no demonstrated pulmonary embolism. Normal thoracic aorta and visualized great vessels. There is no demonstrated aortic dissection. Normal heart and pericardium. Normal mediastinum. Normal hilar regions. Normal visualized trachea and bronchi. The lungs are well expanded. Bilateral groundglass opacities consistent with subsegmental atelectasis, pneumonitis, pulmonary edema, or ARDS. Moderate left pleural effusion with left lower lobe atelectasis. Elevated left hemidiaphragm. Normal chest wall structures. Normal osseous structures. Normal visualized upper abdomen. CT/CTA Chest W/WO Contrast IMPRESSION: 1. No CT evidence of pulmonary embolism. 2. Moderate bilateral subsegmental atelectasis, pneumonitis, pulmonary edema, or ARDS. 3. Moderate left pleural effusion with left lower lobe atelectasis. Electronically Signed: Boston Myers MD at 12:28 EST ,
[2021-04-29] MEDS: 0.9% Normal Saline 1,000 ML 999 ML IV (11:25)
[2021-04-29] MEDS: Ipratropium/Albuterol Sulfate 3 ML AMPUL.NEB INHALATION (11:26)
[2021-04-29 11:30] LABS: Absolute Lymphocyte Count 0.62 X10^3/uL (0.83-4.51); Absolute Neutrophil Count 5.4 X10^3/uL (2.0-7.7); Basophil# 0.02 X10^3/uL; Basophil% 0.3 % (0-1); Eosinophil# 0.13 X10^3/uL; Eosinophils% 1.9 % (0-5); Hematocrit 26.1 % (40-54); Hemoglobin 8.2 g/dL (13.0-16.5); Lymphocyte # 0.62 X10^3/ul (0.83-4.51); Lymphocyte % 9.2 % (19-41); Mean Corp Hgb Conc 31.4 g/dL (32-36); Mean Corpuscular Hgb 25.8 pg (27.0-32.0); Mean Corpuscular Volume 82.1 fL (80-94); Mean Platelet Vol. 10.5 fl (6.2-12.0); Monocyte# 0.47 X10^3/uL; NRBC Flagged by Analyzer 0 % (0-5); Neutrophil # 5.39 X10^3/uL (2.7-7.7); Neutrophil % 80.3 % (47-70); Platelet Count 301 K/mm3 (150-450); RBC Distribution Width SD 50.5 fl (35.1-43.9); Red Blood Count 3.18 M/mm3 (4.6-6.2); White Blood Count 6.7 K/mm3 (4.4-11.0)
[2021-04-29 11:43] LABS: Anion Gap 5 (5-15); BUN 28 mg/dL (7-18); BUN/Creat Ratio 19.4 RATIO (10-20); Calcium,Total 8.6 mg/dL (8.5-10.1); Chloride 113 mmol/L (98-107); Creatinine, Serum 1.44 mg/dL (0.70-1.30); EST Glomerular Filtration Rate 51 mL/min (>60); Est Glom Filt Rate - Afr Amer 62 mL/min (>60); Estimated Creatinine Clearance 48.58 ml/min; Glucose 114 mg/dL (74-106); Lactic Acid 1.7 mmol/L (0.4-1.9); Sodium Level 142 mmol/L (136-145); Troponin-I HS 24 pg/mL (3.0-78.0)
[2021-04-29] MEDS: Acetaminophen 500 MG Tablet 1000 MG PO (12:15)
[2021-04-29] MEDS: Furosemide 40 MG/4 ML Vial IV (13:39)
--- NOTE | 2021-04-29 14:05 | NURSING ---
MED SURG NUAMAJohnnie DYPSPNEA, PLLEURAL EFFUSION
--- NOTE | 2021-04-29 14:16 | PCM.HP.STD ---
HPI - General General Date of Admission: 04/29/21 Date of Service: 04/29/21 Chief Complaint: Hypoxia - 1 day HPI Narrative SAL ALONZO, is a 70 M who presents with the above. He was recently discharged to TCU on 04/27/21. Patient has had multiple admissions to the hospital. He was initially admitted on 03/23/21 with COVID-19 pneumonia/encephalopathy. Patient was discharged on 03/25/21 off oxygen. He was readmitted on 04/08/21 with lethargy, bacterial pneumonia in the setting of recent Covid. At that time, CT of the chest was negative for acute PE but showed extensive interstitial infiltrates. Patient was found to also have rhinovirus. He was discharged home on 04/11/21 with oxygen, 3L and a prednisone taper. He had refused SNF placement at that time. He was followed up in the outpatient and repeatedly refused SNF placement. He was readmitted again on 04/21/21 with difficulty caring for himself. Patient's has stated that patient was lethargic, poor p.o. intake, unable to take care of self. In this hospital stay, he was found to be hypoxic soon after admission and found to have multiple PE. Patient was discharged to TCU on 04/27/21 for rehab with Eliquis and 2 more days of Augmentin to complete 1 week. During this admission, patient was very apathetic, not willing to use his incentive spirometer, found to be lying mostly in bed. He had denied being depressed several times. He refused to be started on antidepressant. Patient was sent to the ED from TCU with hypoxia. He was discharged on 4 L of oxygen but was said to require more oxygen up to 6 L and later on a nonrebreather. CTA of the chest done today was negative for acute PE, showed moderate bilateral subsegmental atelectasis, pneumonitis, pulmonary edema or ARDS. Moderate left pleural effusion with left lower lobe atelectasis. [facility] Medical History Allergic rhinitis Arthritis Asthma Atherosclerosis of coronary artery of [place] heart without angina pectoris Bronchitis Cancer Chronic bronchitis Colon polyp COPD (chronic obstructive pulmonary disease) COVID-19 COVID-19 in immunocompromised patient Diabetes Gastritis History of basal cell carcinoma History of diabetes mellitus, type II History of non-Hodgkin's lymphoma History of pilonidal cyst Hyperlipidemia Hypertension Iron deficiency anemia Iron deficiency anemia Lab test negative for COVID-19 virus Nicotine dependence, cigarettes, uncomplicated Non-Hodgkin lymphoma Obesity Pneumonia Pneumonia due to COVID-19 virus Positive colorectal cancer screening using Cologuard test RA (rheumatoid arthritis) Tobacco use URI (upper respiratory infection) 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 complications Home Medications aspirin 81 mg tablet,delayed release 81 mg PO DAILY 09/28/19 [History Last Taken Unknown] cholecalciferol (vitamin D3) 25 mcg (1,000 unit) capsule 25 mcg PO DAILY 07/17/20 [History Last Taken 04/29/21] nitroglycerin 0.4 mg sublingual tablet 0.4 mg SUBLINGUAL Q5M PRN #30 tab 09/25/20 [Rx Last Taken Unknown] cyanocobalamin (vitamin B-12) 1,000 mcg capsule 1,000 mcg PO DAILY 01/29/21 [History Last Taken 04/29/21] albuterol sulfate 2 puff INHALATION Q6H PRN #6.7 g 04/11/21 [Rx Last Taken Unknown] atorvastatin 40 mg PO QHS 04/21/21 [History Last Taken 04/28/21] amoxicillin-pot clavulanate 875 mg PO BIDCM 04/26/21 [History Last Taken Unknown] apixaban [Eliquis] 10 mg PO BID 04/26/21 [History Last Taken 04/29/21] ferrous sulfate 325 mg PO BID 04/26/21 [History Last Taken 04/29/21] glimepiride 2 mg PO BID 04/26/21 [History Last Taken Unknown] metformin 500 mg PO BID 04/26/21 [History Last Taken 04/29/21] metoprolol tartrate 25 mg PO BID 04/26/21 [History Last Taken 04/29/21] nut.tx.gluc intol,lf,soy-fiber [Glucerna 1.2 Anthony] 120 ml PO 4X/DAY 04/26/21 [History Last Taken Unknown] mirtazapine [Remeron] 7.5 mg PO QHS 04/29/21 [History Last Taken 04/28/21] piperacillin-tazobactam [Zosyn] 3.375 g IV Q8H 04/29/21 [History Last Taken 04/29/21] polyethylene glycol 3350 [Miralax] 17 g PO DAILY 04/29/21 [History Last Taken 04/29/21] senna-docusate sodium 1 tab PO DAILY 04/29/21 [History Last Taken 04/29/21] vancomycin in 0.9 % sodium chl 125 mg IV Q12H 04/29/21 [History Last Taken 04/28/21] Allergy/AdvReac Type Severity Reaction Status Date / Time famotidine [From Pepcid] AdvReac Intermediate Diarrhea Verified 04/29/21 10:45 levofloxacin [From Levaquin] AdvReac Intermediate dizziness Verified 04/29/21 10:45 Family History Father Arthritis Bleeding disorder Hypertension Kidney disease Cancer Skin Anemia blood clots Emphysema lung Mother Colon cancer Cancer Lung Cancer Diabetes Brother Thyroid disorder Surgical History History of coronary artery stent placement (~10/22/13) History of excision of pilonidal cyst History of thymectomy Hx of lymph node excision Social History household members: spouse Smoking Status: Former smoker second hand exposure: Yes quit status: considering quitting alcohol intake: current alcohol intake frequency: holidays/special occasions only substance use type: does not use caffeine: Yes Type: coffee Number of servings: 3 what type of physical activity do you participate in: none frequency: does not exercise seatbelt use: always ROS ROS Narrative Patient appears lethargic and very fatigued Review of Systems ROS Unobtainable: due to encephalopathy Vital Signs Vital Signs Vital Signs: 04/29/21 10:45 04/29/21 10:51 04/29/21 11:09 Temperature 99.8 F H 99.3 F H Temperature Source Temporal Oral Pulse Rate 108 H Respiratory Rate 28 H Respiratory Effort Short of Breath Respiratory Pattern Tachypnea Blood Pressure 121/74 H Blood Pressure Mean 89 Pulse Ox 100 Oxygen Delivery Method Non-Rebreather Oxygen Flow Rate (L/min) 15 04/29/21 11:26 04/29/21 11:41 04/29/21 12:16 Temperature 99.3 F H Temperature Source Temporal Pulse Rate 111 H 122 H Respiratory Rate 24 H 24 H Respiratory Effort Respiratory Pattern Blood Pressure 127/63 H Blood Pressure Mean 84 Pulse Ox 90 91 94 Oxygen Delivery Method Nasal Cannula Nasal Cannula Nasal Cannula Oxygen Flow Rate (L/min) 6 6 6 04/29/21 14:07 Temperature 98.1 F Temperature Source Temporal Pulse Rate 119 H Respiratory Rate 26 H Respiratory Effort Respiratory Pattern Blood Pressure 121/54 H Blood Pressure Mean 76 Pulse Ox 92 Oxygen Delivery Method Nasal Cannula Oxygen Flow Rate (L/min) 4 Weight Weight: 101.5 kg Body Mass Index (BMI) 32.1 Physical Exam Narrative Physical exam: General: Alert, somehow lethargic, appears very fatigued, appears frail, on 6 L of oxygen HEENT: Atraumatic Oral: Moist Mucosa Neck: Supple Lungs: Diminished to auscultation Cardiovascular: HS I+II, regular, no murmurs Abdomen: Bowel Sounds Present, Soft, Non Tender Extremities: No edema Skin: No rashes, No breakdown Neurological: Grossly intact Psych/Mental Status: Appropriate Results Lab / Micro Data Result Diagrams: 04/29/21 11:03 04/29/21 11:03 Labs: Laboratory Results - last 24 hr 04/29/21 10:59: POC Glucose 113 H 04/29/21 11:03: WBC 6.7, RBC 3.18 L, Hgb 8.2 L, Hct 26.1 L, MCV 82.1, MCH 25.8 L, MCHC 31.4 L, RDW Std Deviation 50.5 H, RDW Coeff of Rafael 17.0 H, Plt Count 301, MPV 10.5, Immature Gran % (Auto) 1.300 H, Neut % (Auto) 80.3 H, Lymph % (Auto) 9.2 L, [place] % (Auto) 7.0, Eos % (Auto) 1.9, Baso % (Auto) 0.3, Absolute Neuts (auto) 5.4, Absolute Lymphs (auto) 0.62 L, Nucleated RBC % 0 04/29/21 11:03: Sodium 142, Potassium 4.0, Chloride 113 H, Carbon Dioxide 24.0, Anion Gap 5, BUN 28 H, Creatinine 1.44 H, Estim Creat Clear Calc 48.58, Est GFR (MDRD) Af Amer 62, Est GFR (MDRD) Non-Af 51 L, BUN/Creatinine Ratio 19.4, Glucose 114 H, Calcium 8.6, Troponin I High Sens 24 04/29/21 11:03: B-Natriuretic Peptide 65.0 04/29/21 11:03: Lactic Acid 1.7 Micro: Microbiology 04/29/21 11:30 Nasal Secretion SARS-CoV-2 Antigen (Rapid) - Final Radiology Impression Chest CTA 04/29/21 11:15 IMPRESSION: 1. No CT evidence of pulmonary embolism. 2. Moderate bilateral subsegmental atelectasis, pneumonitis, pulmonary edema, or ARDS. 3. Moderate left pleural effusion with left lower lobe atelectasis. Electronically Signed: Boston Myers MD at 12:28 EST , Assessment & Plan Assessment/Plan (1) Dyspnea: (2) Pleural effusion: PLAN: 1. Acute on chronic respiratory failure secondary to atelectasis/recent pneumonia/recent bilateral PE Patient recently admitted for the above; currently on 6 L of oxygen, discharged on 4 L of oxygen Repeat CTA of the chest today shows no acute PE, moderate bilateral subsegmental atelectasis, pneumonitis, pulmonary edema or ARDS, moderate left pleural effusion with left lobe atelectasis Patient's BNPep is 65; received IV Lasix x1 in the ED; Patient looks clinically dry Patient completed Augmentin on 04/28/21 -making a total of 7 days including antibiotics from the hospital stay Continue on IV vancomycin and Zosyn started from the ED Will consult pulmonology, infectious disease Continue to encourage use of incentive spirometer 2. Recent bilateral PE, patient with recent COVID-19 infection Continue on Eliquis 3. 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 COPD/asthma, recent rhinovirus infection, not in acute exacerbation 5. CAD status post stent, continue on aspirin, statin, beta-avinash 6. Type II DM, hold Metformin, continue on rest of his medications including insulin sliding scale 7. Hypertension, controlled, continue home metoprolol 8. Rest of his chronic medical conditions including non-Hodgkin's lymphoma/rheumatoid arthritis, remains the same 9. Severe protein calorie malnutrition, agricultural engineering technologist were consulted, will continue on supplement 10. DVT prophylaxis?on Eliquis 11. GI prophylaxis - PPI IV Charges/Coding Visit Charges Inpatient E&M: 21268 Init Hosp L3
--- NOTE | 2021-04-29 15:11 | NURSING ---
pt incont of urine pt cleaned up. bedlinen changed
--- NOTE | 2021-04-29 15:26 | MRI_ITS ---
HISTORY: neuro deficit, lethargic, recent COVID. TECHNIQUE: Multiplanar and multisequence MR images of the brain were obtained without gadolinium. # of images incl. paperwork: [id number]. COMPARISON: CT 03/23/2021. FINDINGS: BRAIN PARENCHYMA: Moderate T2 FLAIR hyperintense signal in the bilateral cerebral white matter. No abnormal focus of restricted diffusion. INTRACRANIAL HEMORRHAGE: No acute intracranial hemorrhage. CSF SPACES: Mild generalized volume loss. No midline shift or other significant mass effect. No extra-axial fluid collection. VASCULAR SYSTEM: Major intracranial flow-voids maintained. ORBITS: Bilateral lens resections. PARANASAL SINUSES AND MASTOID AIR CELLS: Mild fluid and mucosal thickening in the right maxillary sinus. MRI/Brain without Contrast IMPRESSION: No evidence for acute infarct. Chronic small vessel ischemic gliosis. Decreased paranasal sinus inflammatory disease. at 0954 Reported and signed by: Jessika Vo MD Electronically Signed: Jessika Vo MD at 9:53 EST ,
--- NOTE | 2021-04-29 15:50 | PCM.RX.CS ---
Consult Pharmacy has been consulted to manage selected antiobiotic: Vancomycin Type of Consult: New start Suspected Infection: Pneumonia Labs: Sodium 142 mmol/L (136-145) 04/29/21 11:03 Potassium 4.0 mmol/L (3.5-5.1) 04/29/21 11:03 Chloride 113 mmol/L (98-107) H 04/29/21 11:03 Carbon Dioxide 24.0 mmol/L (21.0-32.0) 04/29/21 11:03 Anion Gap 5 (5-15) 04/29/21 11:03 BUN 28 mg/dL (7-18) H 04/29/21 11:03 Creatinine 1.44 mg/dL (0.70-1.30) H 04/29/21 11:03 Est GFR (MDRD) Af Amer 62 mL/min (>60) 04/29/21 11:03 Est GFR (MDRD) Non-Af 51 mL/min (>60) L 04/29/21 11:03 BUN/Creatinine Ratio 19.4 RATIO (10-20) 04/29/21 11:03 Glucose 114 mg/dL (74-106) H 04/29/21 11:03 Microbiology: Microbiology 04/29/21 11:30 Nasal Secretion SARS-CoV-2 Antigen (Rapid) - Final Goal Trough: 15-20 mcg/mL Pharmacy Plan for Drug Dosing: NEW START IV VANCOMYCIN Consulting Physician: Dr. Rosas Indication: PNA Goal Trough: 15-20 SrCr: 1.44 CrCl: 48 mL/min Comments: Patient was on TCU and had vancomycin started on 04/28. At that time, he had a 1250mg initial dose 04/28/21 @2345. He was placed on 1250mg IV Q24hr to start tonight. Will continue this dose and schedule a trough prior to the 3rd total dose of vancomycin (accounting for initial TCU dose + 2 scheduled doses). Vancomcyin Dose: 1250mg IV Q24hr to start 04/29/21 @2330 Pending Level: 04/30/21 @2300 Pharmacy Service will continue to monitor and adjust dosing as required.
[2021-04-29] MEDS: Ferrous Sulfate 325 MG Tablet PO (16:43)
[2021-04-29] MEDS: Glimepiride 2 MG Tablet PO (16:43)
[2021-04-29 16:51] LABS: Bedside Glucose 125 mg/dL (74-106)
[2021-04-29] MEDS: APIXABAN 5 MG TABLET 10 MG PO (22:14)
[2021-04-29] MEDS: Atorvastatin Calcium 40 MG Tablet PO (22:14)
[2021-04-29] MEDS: Mirtazapine 15 MG Tablet 7.5 MG PO (22:14)
[2021-04-29] MEDS: Metoprolol Tartrate 25 MG Tablet PO (22:14)
[2021-04-29] MEDS: Insulin Lispro 100 UNIT/ML INSULN.PEN SC (22:19)
[2021-04-29 22:51] LABS: Bedside Glucose 279 mg/dL (74-106)
[2021-04-30] MEDS: Acetaminophen 325 MG Tablet 650 MG PO ×2 (02:09→16:33)
[2021-04-30 02:19] VITALS: BP 100/79; PULSE 93; RESP 18; TEMP 39.2; O2SAT 97
[2021-04-30 04:00] VITALS: BP 99/78; PULSE 93; RESP 18; TEMP 36.6; O2SAT 97
[2021-04-30 06:37] LABS: Absolute Lymphocyte Count 0.52 X10^3/uL (0.83-4.51); Absolute Neutrophil Count 3.8 X10^3/uL (2.0-7.7); Basophil# 0.01 X10^3/uL; Basophil% 0.2 % (0-1); Eosinophils% 2.1 % (0-5); Hematocrit 22.2 % (40-54); Hemoglobin 7.1 g/dL (13.0-16.5); Lymphocyte # 0.52 X10^3/ul (0.83-4.51); Lymphocyte % 10.7 % (19-41); Mean Corpuscular Hgb 26.2 pg (27.0-32.0); Mean Corpuscular Volume 81.9 fL (80-94); Mean Platelet Vol. 10.2 fl (6.2-12.0); Monocyte# 0.38 X10^3/uL; Monocyte% 7.8 % (0-10); NRBC Flagged by Analyzer 0 % (0-5); Neutrophil # 3.78 X10^3/uL (2.7-7.7); POSITIVE DIFFERENTIAL YES; Platelet Count 292 K/mm3 (150-450); RBC Distribution Width CV 17.2 % (11.6-14.6); RBC Distribution Width SD 50.5 fl (35.1-43.9); Red Blood Count 2.71 M/mm3 (4.6-6.2); White Blood Count 4.9 K/mm3 (4.4-11.0)
[2021-04-30 06:38] LABS: Differential Indicated SCAN CRITERIA MET
[2021-04-30 06:51] LABS: Anisocytosis 1+
[2021-04-30 07:03] LABS: ALB/GLOB Ratio 0.4 RATIO (0.9-2.4); AST(SGOT) 45 U/L (15-37); Alanine Aminotransfer ALT/SGPT 33 U/L (16-61); Albumin, Serum 1.4 g/dL (3.2-5.0); Alkaline Phosphatase 52 U/L (45-117); Anion Gap 4 (5-15); BUN 26 mg/dL (7-18); BUN/Creat Ratio 17.2 RATIO (10-20); Calcium,Total 8.2 mg/dL (8.5-10.1); Chloride 118 mmol/L (98-107); Creatinine, Serum 1.51 mg/dL (0.70-1.30); EST Glomerular Filtration Rate 49 mL/min (>60); Est Glom Filt Rate - Afr Amer 59 mL/min (>60); Estimated Creatinine Clearance 47.79 ml/min; Globulin 3.2 g/dL (2.2-4.2); Glucose 90 mg/dL (74-106); Potassium 3.8 mmol/L (3.5-5.1); Protein, Total 4.6 g/dL (6.4-8.2); Sodium Level 144 mmol/L (136-145)
--- NOTE | 2021-04-30 07:24 | EX.PCM.CONCC ---
Assessment & Plan Assessment/Plan (1) Acute on chronic respiratory failure with hypoxemia: PLAN: RECOMMENDATIONS: 1. Wean supplemental oxygen to maintain saturations at or above 90%. 2. Continue empiric antimicrobials. 3. Check MRSA screen along with strep and urine Legionella antigens. 4. Obtain and send sputum for culture. 5. Will make n.p.o. for now given history of microaspiration and obtain speech therapy consultation. 6. Hold Eliquis given worsening anemia and transition to weight-based heparin infusion. 7. Send type and screen. Plan to transfuse if hemoglobin drops below 7 g/dL. 8. Continue PPI therapy as ordered. IMPRESSIONS: 1. Acute on chronic hypoxemic respiratory failure The patient initially presented to the ED with increasing oxygen demand while in the transitional care unit. He was documented for a short period of time she required a nonrebreather. His chest imaging did reveal progressive infiltrates, most pronounced throughout the left hemithorax. The patient does have a history of microaspiration. At this time, I agree with continuing empiric antimicrobials, pending infectious work-up. Will obtain an MRSA screen and check strep and urine Legionella antigens. Sputum will be obtained and sent for culture. For now, I would recommend that the patient remain n.p.o., Until he can be fully evaluated by speech therapy. The patient is currently maintaining appropriate oxygen saturations on 4 L/min which is what he was previously discharged on. 2. Anemia During the patient's last hospitalization, he was identified as having pulmonary emboli and was subsequently started on Eliquis. His hemoglobin has dropped over the course of the last 48 hours and is currently 7.1 g/dL. Therefore, we will plan to hold his Eliquis and transition him to a weight-based heparin infusion. Will send type and screen. Plan to transfuse if hemoglobin drops below 7 g/dL. Continue PPI therapy as ordered. 3. History of rheumatoid arthritis/history of non-Hodgkin's lymphoma/heart failure with preserved ejection fraction/chronic tobacco dependency Complicates care, management, recovery and prognosis. The patient does receive rituximab on an outpatient basis for his rheumatoid arthritis, per report. This note was generated with 360[employer] software. It may contain incorrect words, spelling, and punctuation that were not noted in checking the note before signing. HPI Consult Data Date of Consult: 04/30/21 HPI Narrative Reason for Consultation: Acute on chronic ischemic respiratory failure HPI Narrative: The patient is a 70-year-old male, with a history as outlined below, who presented to the emergency department from the transitional care unit with worsening dyspnea and hypoxemia. The patient was just discharged from the hospital, after having been admitted April 22 through April 26 with a rhinovirus upper respiratory infection and bilateral pulmonary emboli. Echocardiogram completed at that time demonstrated stage I diastolic dysfunction and mild aortic stenosis. The patient was treated with antibiotics, corticosteroids and systemic anticoagulation. The patient has now been admitted to the hospital multiple times since the beginning of the year with breathing related complications. He does have a documented history in the past of microaspiration. Prior pulmonary function studies did reveal evidence of an asthma/COPD overlap syndrome. The patient did report that he was discharged to the TCU on 4 L/min of oxygen. On presentation to the emergency department, the patient was noted to have a fever of 102 ?F. He was otherwise hemodynamically stable and maintaining appropriate oxygen saturations on 4 L/min via nasal cannula. Initial laboratory evaluation revealed a hemoglobin of 8.2 g/dL. Chemistry profile was notable for a creatinine of 1.4. Lactate was within normal limits. A CTA chest was obtained and revealed progressive multifocal airspace disease, most pronounced throughout the left hemithorax along with an associated left-sided pleural effusion. When compared to the prior CT chest from April 22, the infiltrates throughout the left upper lobe have progressed. [facility] Medical History Allergic rhinitis Arthritis Asthma Atherosclerosis of coronary artery of [place] without angina pectoris Bronchitis Cancer Chronic bronchitis Colon polyp COPD (chronic obstructive pulmonary disease) COVID-19 COVID-19 in immunocompromised patient Diabetes Gastritis History of basal cell carcinoma History of diabetes mellitus, type II History of non-Hodgkin's lymphoma History of pilonidal cyst Hyperlipidemia Hypertension Iron deficiency anemia Iron deficiency anemia Lab test negative for COVID-19 virus Nicotine dependence, cigarettes, uncomplicated Non-Hodgkin lymphoma Obesity Pneumonia Pneumonia due to COVID-19 virus Positive colorectal cancer screening using Cologuard test RA (rheumatoid arthritis) Tobacco use URI (upper respiratory infection) 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 complications Home Medications aspirin 81 mg tablet,delayed release 81 mg PO DAILY 09/28/19 [History Last Taken Unknown] cholecalciferol (vitamin D3) 25 mcg (1,000 unit) capsule 25 mcg PO DAILY 07/17/20 [History Last Taken 04/29/21] nitroglycerin 0.4 mg sublingual tablet 0.4 mg SUBLINGUAL Q5M PRN #30 tab 09/25/20 [Rx Last Taken Unknown] cyanocobalamin (vitamin B-12) 1,000 mcg capsule 1,000 mcg PO DAILY 01/29/21 [History Last Taken 04/29/21] albuterol sulfate 2 puff INHALATION Q6H PRN #6.7 g 04/11/21 [Rx Last Taken Unknown] atorvastatin 40 mg PO QHS 04/21/21 [History Last Taken 04/28/21] amoxicillin-pot clavulanate 875 mg PO BIDCM 04/26/21 [History Last Taken Unknown] apixaban [Eliquis] 10 mg PO BID 04/26/21 [History Last Taken 04/29/21] ferrous sulfate 325 mg PO BID 04/26/21 [History Last Taken 04/29/21] glimepiride 2 mg PO BID 04/26/21 [History Last Taken Unknown] metformin 500 mg PO BID 04/26/21 [History Last Taken 04/29/21] metoprolol tartrate 25 mg PO BID 04/26/21 [History Last Taken 04/29/21] nut.tx.gluc intol,lf,soy-fiber [Glucerna 1.2 Anthony] 120 ml PO 4X/DAY 04/26/21 [History Last Taken Unknown] mirtazapine [Remeron] 7.5 mg PO QHS 04/29/21 [History Last Taken 04/28/21] piperacillin-tazobactam [Zosyn] 3.375 g IV Q8H 04/29/21 [History Last Taken 04/29/21] polyethylene glycol 3350 [Miralax] 17 g PO DAILY 04/29/21 [History Last Taken 04/29/21] senna-docusate sodium 1 tab PO DAILY 04/29/21 [History Last Taken 04/29/21] vancomycin in 0.9 % sodium chl 125 mg IV Q12H 04/29/21 [History Last Taken 04/28/21] Allergy/AdvReac Type Severity Reaction Status Date / Time famotidine [From Pepcid] AdvReac Intermediate Diarrhea Verified 04/29/21 10:45 levofloxacin [From Levaquin] AdvReac Intermediate dizziness Verified 04/29/21 10:45 Family History Father Arthritis Bleeding disorder Hypertension Kidney disease Cancer Skin Anemia blood clots Emphysema lung Mother Colon cancer Cancer Lung Cancer Diabetes Brother Thyroid disorder Surgical History History of coronary artery stent placement (~10/22/13) History of excision of pilonidal cyst History of thymectomy Hx of lymph node excision Social History household members: spouse Smoking Status: Former smoker second hand exposure: Yes quit status: considering quitting alcohol intake: current alcohol intake frequency: holidays/special occasions only substance use type: does not use caffeine: Yes Type: coffee Number of servings: 3 what type of physical activity do you participate in: none frequency: does not exercise seatbelt use: always ROS Constitutional Constitutional: Reports fatigue and fever(s) Eyes Eyes: Denies blurry vision or change in vision ENT HEENT: Reports dysphagia; Denies dizziness, epistaxis or headache(s) Cardiovascular Cardiovascular: Reports dyspnea Respiratory/Chest Respiratory/Chest: Reports cough and dyspnea Gastrointestinal Gastrointestinal: Denies abdominal pain, diarrhea, nausea or vomiting Genitourinary Genitourinary: Denies difficulty urinating Musculoskeletal Musculoskeletal: Denies arthralgias or myalgias Integumentary Integumentary: Denies lesions, rash or skin ulcer Neurologic Neurologic: Denies abnormal speech or seizure-like activity Psychiatric Psychiatric: Denies anxiety or depression Endocrine Endocrinology: Reports fatigue Hematologic/Lymphatic Hematologic/Lymphatic: Denies easy bleeding or easy bruising Physical Exam Const alert and no apparent distress Constitutional Narrative: Appears debilitated and weak, sitting in a wheelchair preparing to go to MRI. General Appearance: cooperative HEENT normocephalic and head/scalp atraumatic Eyes PERRL and EOMs intact bilaterally Neck supple General: trachea midline Chest inspection of chest normal Resp Auscultation: rales and diminished lung sounds Cardio regular rate and regular rhythm GI normal to inspection, nondistended, normoactive bowel sounds Extremity General Extremity: edema bilateral lower extremity; Negative for clubbing Skin no rashes or lesions noted Neuro CN's II-XII intact bilaterally and no focal motor deficits Psych cooperative and affect normal Lab / Micro Data Result Diagrams: 04/30/21 06:24 04/30/21 06:24 Labs: Laboratory Results - last 24 hr 04/29/21 10:59: POC Glucose 113 H 04/29/21 11:03: WBC 6.7, RBC 3.18 L, Hgb 8.2 L, Hct 26.1 L, MCV 82.1, MCH 25.8 L, MCHC 31.4 L, RDW Std Deviation 50.5 H, RDW Coeff of Rafael 17.0 H, Plt Count 301, MPV 10.5, Immature Gran % (Auto) 1.300 H, Neut % (Auto) 80.3 H, Lymph % (Auto) 9.2 L, [place] % (Auto) 7.0, Eos % (Auto) 1.9, Baso % (Auto) 0.3, Absolute Neuts (auto) 5.4, Absolute Lymphs (auto) 0.62 L, Nucleated RBC % 0 04/29/21 11:03: Sodium 142, Potassium 4.0, Chloride 113 H, Carbon Dioxide 24.0, Anion Gap 5, BUN 28 H, Creatinine 1.44 H, Estim Creat Clear Calc 48.58, Est GFR (MDRD) Af Amer 62, Est GFR (MDRD) Non-Af 51 L, BUN/Creatinine Ratio 19.4, Glucose 114 H, Calcium 8.6, Troponin I High Sens 24 04/29/21 11:03: B-Natriuretic Peptide 65.0 04/29/21 11:03: Lactic Acid 1.7 04/29/21 16:39: POC Glucose 125 H 04/29/21 22:16: POC Glucose 279 H 04/30/21 06:24: WBC 4.9, RBC 2.71 L, Hgb 7.1 L, Hct 22.2 L, MCV 81.9, MCH 26.2 L, MCHC 32.0, RDW Std Deviation 50.5 H, RDW Coeff of Rafael 17.2 H, Plt Count 292, MPV 10.2, Immature Gran % (Auto) 1.200 H, Neut % (Auto) 78.0 H, Lymph % (Auto) 10.7 L, [place] % (Auto) 7.8, Eos % (Auto) 2.1, Baso % (Auto) 0.2, Absolute Neuts (auto) 3.8, Absolute Lymphs (auto) 0.52 L, Nucleated RBC % 0, Anisocytosis 1+ 04/30/21 06:24: Sodium 144, Potassium 3.8, Chloride 118 H, Carbon Dioxide 22.0, Anion Gap 4 L, BUN 26 H, Creatinine 1.51 H, Estim Creat Clear Calc 47.79, Est GFR (MDRD) Af Amer 59 L, Est GFR (MDRD) Non-Af 49 L, BUN/Creatinine Ratio 17.2, Glucose 90, Calcium 8.2 L, Total Bilirubin 0.30, AST 45 H, ALT 33, Alkaline Phosphatase 52, Total Protein 4.6 L, Albumin 1.4 L, Globulin 3.2, Albumin/Globulin Ratio 0.4 L Micro: Microbiology 04/29/21 11:30 Nasal Secretion SARS-CoV-2 Antigen (Rapid) - Final Radiology Impression Chest CTA 04/29/21 11:15 IMPRESSION: 1. No CT evidence of pulmonary embolism. 2. Moderate bilateral subsegmental atelectasis, pneumonitis, pulmonary edema, or ARDS. 3. Moderate left pleural effusion with left lower lobe atelectasis. Electronically Signed: Boston Myers MD at 12:28 EST , Charges/Coding Visit Charges Inpatient E&M: 81761 Init Hosp L3
--- NOTE | 2021-04-30 07:29 | PN.HOSP_ITS ---
Subjective Subjective Patient is a 70-year-old gentleman with history of recent COVID-19 pneumonia later complicated by bilateral pulmonary embolism presented to the emergency department with progressive shortness of breath. An assessment of acute on chronic hypoxic respiratory failure made admitted to regular nursing floor for further management Objective Data Objective Data Vital Signs: Vital Signs Temp Pulse Resp BP Pulse Ox 97.8 F 93 18 99/78 97 04/30/21 04:00 04/30/21 04:00 04/30/21 04:00 04/30/21 04:00 04/30/21 04:00 Oxygen Flow Rate (L/min) 4 Oxygen Delivery Method Nasal Cannula Weight: 90.8 kg Body Mass Index (BMI) 27.9 Intake & Output: Intake and Output for Last 24 Hours 04/28/21 04/29/21 04/30/21 23:59 23:59 23:59 Intake Total 1110 / 1110 325 / 325 Output Total 250 / 250 Balance 1110 / 1110 75 / 75 Lab / Micro Data Result Diagrams: 04/30/21 06:24 04/30/21 06:24 Labs: Laboratory Results - last 24 hr 04/29/21 10:59: POC Glucose 113 H 04/29/21 11:03: WBC 6.7, RBC 3.18 L, Hgb 8.2 L, Hct 26.1 L, MCV 82.1, MCH 25.8 L , MCHC 31.4 L, RDW Std Deviation 50.5 H, RDW Coeff of Rafael 17.0 H, Plt Count 301, MPV 10.5, Immature Gran % (Auto) 1.300 H, Neut % (Auto) 80.3 H, Lymph % (Auto) 9.2 L, [place] % (Auto) 7.0, Eos % (Auto) 1.9, Baso % (Auto) 0.3, Absolute Neuts (auto) 5.4, Absolute Lymphs (auto) 0.62 L, Nucleated RBC % 0 04/29/21 11:03: Sodium 142, Potassium 4.0, Chloride 113 H, Carbon Dioxide 24.0, Anion Gap 5, BUN 28 H, Creatinine 1.44 H, Estim Creat Clear Calc 48.58, Est GFR (MDRD) Af Amer 62, Est GFR (MDRD) Non-Af 51 L, BUN/Creatinine Ratio 19.4, Glucose 114 H, Calcium 8.6, Troponin I High Sens 24 04/29/21 11:03: B-Natriuretic Peptide 65.0 04/29/21 11:03: Lactic Acid 1.7 04/29/21 16:39: POC Glucose 125 H 04/29/21 22:16: POC Glucose 279 H 04/30/21 06:24: WBC 4.9, RBC 2.71 L, Hgb 7.1 L, Hct 22.2 L, MCV 81.9, MCH 26.2 L , MCHC 32.0, RDW Std Deviation 50.5 H, RDW Coeff of Rafael 17.2 H, Plt Count 292, MPV 10.2, Immature Gran % (Auto) 1.200 H, Neut % (Auto) 78.0 H, Lymph % (Auto) 10.7 L, [place] % (Auto) 7.8, Eos % (Auto) 2.1, Baso % (Auto) 0.2, Absolute Neuts (auto) 3.8, Absolute Lymphs (auto) 0.52 L, Nucleated RBC % 0, Anisocytosis 1+ 04/30/21 06:24: Sodium 144, Potassium 3.8, Chloride 118 H, Carbon Dioxide 22.0, Anion Gap 4 L, BUN 26 H, Creatinine 1.51 H, Estim Creat Clear Calc 47.79, Est GFR (MDRD) Af Amer 59 L, Est GFR (MDRD) Non-Af 49 L, BUN/Creatinine Ratio 17.2, Glucose 90, Calcium 8.2 L, Total Bilirubin 0.30, AST 45 H, ALT 33, Alkaline Phosphatase 52, Total Protein 4.6 L, Albumin 1.4 L, Globulin 3.2, Albumin/Globulin Ratio 0.4 L Micro: Microbiology 04/29/21 11:30 Nasal Secretion SARS-CoV-2 Antigen (Rapid) - Final Radiography Diagnostic Testing: Radiology Impression Chest CTA 04/29/21 11:15 IMPRESSION: 1. No CT evidence of pulmonary embolism. 2. Moderate bilateral subsegmental atelectasis, pneumonitis, pulmonary edema, or ARDS. 3. Moderate left pleural effusion with left lower lobe atelectasis. Electronically Signed: Boston Myers MD at 12:28 EST , Physical Exam Narrative GENERAL: cooperative, Frail looking HEENT: Atraumatic; EYES; Anicteric, Normal Conjunctiva NECK; supple, normal thyroid, RESPIRATORY: Diminished to auscultation CARDIOVASCULAR: Regular S1 S2, GI: soft, normoactive bowel sounds, : No Renal angle tenderness; EXTREMITIES: No edema, no clubbing, MUSCULOSKELETAL: no muscle wasting NEURO: Awake; no lateralizing signs. SKIN: No Rash PSYCH; Flat affect Assessment & Plan Assessment/Plan (1) Dyspnea: (2) Pleural effusion: PLAN: Patient is a 70-year-old gentleman with history of recent COVID-19 pneumonia later complicated by bilateral pulmonary embolism presented to the emergency department with progressive shortness of breath. An assessment of acute on chronic hypoxic respiratory failure made admitted to regular nursing floor for further management 1. Acute on chronic hypoxic respiratory. ?Multifactorial including recent bilateral pulmonary embolism, recent Covid pneumonia with suspected residual pulmonary fibrosis as well as possible aspiration pneumonitis. Patient was started on broad-spectrum antibiotic therapy with vancomycin and Zosyn with consultation placed to pulmonary and ID. Case was discussed with Dr. Singleton with pulmonary medicine plan is for patient to be kept n.p.o. for speech and swallow eval 2. Recent bilateral pulmonary embolism COVID induced coagulopathy ?Patient is on Eliquis did continue 3. Anemia - Secondary to chronic disorder monitoring H&H and transfuse if patient becomes symptomatic or hemoglobin falls below 7.Patient hemoglobin as of 04/30/2021 7.1 repeat H&H ordered for a.m. 4. Diabetes mellitus type II -patient's oral hypoglycemics held. Placed on long acting insulin, Accu-Cheks a.c. and at bedtime and covered with sliding scale insulin 5. Rheumatoid arthritis Patient is on rituximab as outpatient. 6. Non Hodgkin's lymphoma ?Apparently in remission 7. Coronary artery disease ?With previous PCI of an LAD RCA and mid circumflex lesions 8. Dyslipidemia ?Per history currently not on any statin therapy 9. Tobacco dependence - Counseled on cessation, offered nicotine patch for tobacco cravings 10. Anemia - Secondary to chronic disorder monitoring H&H and transfuse if patient becomes symptomatic or hemoglobin falls below 7 11. Physical deconditioning - Requested for PT OT eval and social science professor to assist with discharge planning 12. Hypertension - Blood pressure controlled, home medications continued with dose adjustment as needed 13. DVT prophylaxis - on Eliquis 14. Acute encephalopathy ?Possibly related to #1 however MRI of the brain ordered to rule out a neurological etiology Charges/Coding Visit Charges Inpatient E&M: 96848 Subs Hosp L3
[2021-04-30 08:01] LABS: Bedside Glucose 78 mg/dL (74-106)
[2021-04-30 10:01] VITALS: BP 115/49; PULSE 93; RESP 18; TEMP 36.9; O2SAT 98
[2021-04-30] MEDS: Aspirin E.C. 81 MG Tablet PO (10:07)
--- NOTE | 2021-04-30 11:35 | CASEMGMT ---
TARAH CM Readmission Note Previous Admission: 04/22/2021-04/26/2021 Diagnosis: FTT Adult DC Disposition: [facility] TCU Current Admission Presentation: Increased O2 demands Pt presented to ER from [facility] TCU with increased O2 demands. At baseline pt was on 4L O2, increased up to 6L. Pt with worsening infiltrates. Pt to be NPO until [facility]. Previous hospital stay pt started Eliquis. Pt now with Hgb of 7.1, eliquis held and plan to transfuse if hgb below 7. Pt was screened last admission for Palliative Care, pt was evaluated but it was determined pt insurance is not in network with Pallative Care. Confirmed this today with Fernando Alegre at Palliative. DC PLAN: Return back to [facility] TCU.
--- NOTE | 2021-04-30 12:02 | CASEMGMT ---
Social Work Note TYE reviewed chart. Pt was recently discharged to [facility]. SW in to speak with pt and pt's Ca. Pt soundly sleeping. SW spoke with Ca. Ca confirms pt came from [facility] and would like pt to return to [facility]. TYE explained that pre-cert will be needed again. Ca states understanding. TYE placed a call to Rosanna with TCU. Rosanna confirms pt can return to TCU will need a new pre-cert. TYE to continue to follow. Plan: Return to TCU pending pre-cert Brittani Hernandez MEDICAL IMAGING DIRECTOR, PRINCIPAL QUALITY ENGINEER
[2021-04-30 12:20] LABS: Bedside Glucose 102 mg/dL (74-106)
[2021-04-30 12:42] LABS: International Normalized Ratio 2.7; Prothrombin Time (Protime)PT. 27.9 SECONDS (11.7-14.9)
[2021-04-30 12:43] LABS: Partial Thromboplast Time 49.1 Seconds (24.1-36.2)
--- NOTE | 2021-04-30 14:19 | CON.PCM.ID_ITS ---
Assessment & Plan Assessment/Plan (1) Dyspnea: PLAN: Cxs sent, on empiric vanc/zosyn. Recent covid, rhinovirus, CAP, and PEs. Has had covid vaccine x3. Pulm following. Possible aspiration, getting swallow eval. Will follow, thank you HPI Consult Data Date of Consult: 04/30/21 HPI Narrative HPI Narrative: SAL ALONZO, is a 70 M who presented from TCU with fever and dyspnea, c/o cough. Admitted 03/23 with covid, readmit 04/08 with pneumonia, rhinovirus, PEs. Went back to ED 04/21 due to lethargy, hypoxia, difficulty caring for self at home. Admitted again, then sent to TCU. Now here on vanc/zosyn. Getting swallow eval. at bedside, provided additional hi story. Full ROS performed and neg except as noted above. [facility] Medical History Allergic rhinitis Arthritis Asthma Atherosclerosis of coronary artery of [place] heart without angina pectoris Bronchitis Cancer Chronic bronchitis Colon polyp COPD (chronic obstructive pulmonary disease) COVID-19 COVID-19 in immunocompromised patient Diabetes Gastritis History of basal cell carcinoma History of diabetes mellitus, type II History of non-Hodgkin's lymphoma History of pilonidal cyst Hyperlipidemia Hypertension Iron deficiency anemia Iron deficiency anemia Lab test negative for COVID-19 virus Nicotine dependence, cigarettes, uncomplicated Non-Hodgkin lymphoma Obesity Pneumonia Pneumonia due to COVID-19 virus Positive colorectal cancer screening using Cologuard test RA (rheumatoid arthritis) Tobacco use URI (upper respiratory infection) 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 complications Home Medications aspirin 81 mg tablet,delayed release 81 mg PO DAILY 09/28/19 [History Last Taken Unknown] cholecalciferol (vitamin D3) 25 mcg (1,000 unit) capsule 25 mcg PO DAILY 07/17/20 [History Last Taken 04/29/21] nitroglycerin 0.4 mg sublingual tablet 0.4 mg SUBLINGUAL Q5M PRN #30 tab 09/25/20 [Rx Last Taken Unknown] cyanocobalamin (vitamin B-12) 1,000 mcg capsule 1,000 mcg PO DAILY 01/29/21 [History Last Taken 04/29/21] albuterol sulfate 2 puff INHALATION Q6H PRN #6.7 g 04/11/21 [Rx Last Taken Unknown] atorvastatin 40 mg PO QHS 04/21/21 [History Last Taken 04/28/21] amoxicillin-pot clavulanate 875 mg PO BIDCM 04/26/21 [History Last Taken Unknown] apixaban [Eliquis] 10 mg PO BID 04/26/21 [History Last Taken 04/29/21] ferrous sulfate 325 mg PO BID 04/26/21 [History Last Taken 04/29/21] glimepiride 2 mg PO BID 04/26/21 [History Last Taken Unknown] metformin 500 mg PO BID 04/26/21 [History Last Taken 04/29/21] metoprolol tartrate 25 mg PO BID 04/26/21 [History Last Taken 04/29/21] nut.tx.gluc intol,lf,soy-fiber [Glucerna 1.2 Anthony] 120 ml PO 4X/DAY 04/26/21 [History Last Taken Unknown] mirtazapine [Remeron] 7.5 mg PO QHS 04/29/21 [History Last Taken 04/28/21] piperacillin-tazobactam [Zosyn] 3.375 g IV Q8H 04/29/21 [History Last Taken 04/29/21] polyethylene glycol 3350 [Miralax] 17 g PO DAILY 04/29/21 [History Last Taken 04/29/21] senna-docusate sodium 1 tab PO DAILY 04/29/21 [History Last Taken 04/29/21] vancomycin in 0.9 % sodium chl 125 mg IV Q12H 04/29/21 [History Last Taken 04/28/21] Allergy/AdvReac Type Severity Reaction Status Date / Time famotidine [From Pepcid] AdvReac Intermediate Diarrhea Verified 04/29/21 10:45 levofloxacin [From Levaquin] AdvReac Intermediate dizziness Verified 04/29/21 10:45 Family History Father Arthritis Bleeding disorder Hypertension Kidney disease Cancer Skin Anemia blood clots Emphysema lung Mother Colon cancer Cancer Lung Cancer Diabetes Brother Thyroid disorder Surgical History History of coronary artery stent placement (~10/22/13) History of excision of pilonidal cyst History of thymectomy Hx of lymph node excision Social History household members: spouse Smoking Status: Former smoker second hand exposure: Yes quit status: considering quitting alcohol intake: current alcohol intake frequency: holidays/special occasions only substance use type: does not use caffeine: Yes Type: coffee Number of servings: 3 what type of physical activity do you participate in: none frequency: does not exercise seatbelt use: always Physical Exam Const General Appearance: cooperative and lethargic HEENT normocephalic and head/scalp atraumatic Eyes PERRL and EOMs intact bilaterally Neck supple and No nodes Resp Auscultation: rales and diminished lung sounds Cardio regular rate and regular rhythm GI soft to palpation, non-tender and non-distended Extremity no clubbing, cyanosis or edema Skin no rashes or lesions noted Neuro CN's II-XII intact bilaterally Medical Records Data Medical Nutrition Assessment Dietitian: Malnutrition Criteria Met Start: 04/30/21 11:49 Freq: Status: Active Protocol: Document 04/30/21 11:49 SLA (Rec: 04/30/21 11:49 [facility] [id number]) Nutrition Malnutrition Evidence of Malnutrition Exists Yes Malnutrition (severe): Acute Illness/Injury Evidenced By Suboptimal Energy Intake ( Severe),Weight Loss (Severe), Physical Changes (Moderate) Clinical Problem Acute Disease or Injury Related Malnutrition Etiology related to COVID in Feb 2021 and subsequent illnesses requiring hospitalizations since making it difficult to consume adequate nutrition to meet est nutritional needs Signs/Symptoms as evidenced by 9.2% wt loss and <50% po intake at most meals x past ~ 6 wks and also sunken orbital/temporal areas, fat/muscle loss of scapula, clavicle, triceps, legs Status Active Problem Recommendation Dietitian Recommendations/Changes When medically able, rec liberal Regular diet - consistency per SALES CONSULTING DIRECTOR - d/t s/s of malnutrition When medically able rec 4 oz chocolate ensure enlive 4x/day w/ medpass for increased nutrition if consumed (Pt will NOT drink glucerna shake). Lab / Micro Data Result Diagrams: 04/30/21 06:24 04/30/21 06:24 Labs: Laboratory Results - last 24 hr 04/29/21 16:39: POC Glucose 125 H 04/29/21 22:16: POC Glucose 279 H 04/30/21 06:14: PT 27.9 H, INR 2.7, APTT 49.1 H 04/30/21 06:24: WBC 4.9, RBC 2.71 L, Hgb 7.1 L, Hct 22.2 L, MCV 81.9, MCH 26.2 L , MCHC 32.0, RDW Std Deviation 50.5 H, RDW Coeff of Rafael 17.2 H, Plt Count 292, MPV 10.2, Immature Gran % (Auto) 1.200 H, Neut % (Auto) 78.0 H, Lymph % (Auto) 10.7 L, [place] % (Auto) 7.8, Eos % (Auto) 2.1, Baso % (Auto) 0.2, Absolute Neuts (auto) 3.8, Absolute Lymphs (auto) 0.52 L, Nucleated RBC % 0, Anisocytosis 1+ 04/30/21 06:24: Sodium 144, Potassium 3.8, Chloride 118 H, Carbon Dioxide 22.0, Anion Gap 4 L, BUN 26 H, Creatinine 1.51 H, Estim Creat Clear Calc 47.79, Est GFR (MDRD) Af Amer 59 L, Est GFR (MDRD) Non-Af 49 L, BUN/Creatinine Ratio 17.2, Glucose 90, Calcium 8.2 L, Total Bilirubin 0.30, AST 45 H, ALT 33, Alkaline Phosphatase 52, Total Protein 4.6 L, Albumin 1.4 L, Globulin 3.2, Albumin/Globulin Ratio 0.4 L 04/30/21 07:46: POC Glucose 78 04/30/21 12:15: POC Glucose 102 Micro: Microbiology 04/29/21 11:30 Nasal Secretion SARS-CoV-2 Antigen (Rapid) - Final Radiology Impression Brain MRI 04/29/21 15:26 IMPRESSION: No evidence for acute infarct. Chronic small vessel ischemic gliosis. Decreased paranasal sinus inflammatory disease. at 0954 Reported and signed by: Jessika Vo MD Electronically Signed: Jessika Vo MD at 9:53 EST Reading Location ID and State: [facility] / [place] Tel , Service support ,
[2021-04-30 16:01] LABS: Bedside Glucose 109 mg/dL (74-106)
[2021-04-30 16:07] VITALS: BP 92/44; PULSE 96; RESP 18; TEMP 37.6; O2SAT 99
[2021-04-30] MEDS: Ferrous Sulfate 325 MG Tablet PO (16:32)
[2021-04-30] MEDS: Glimepiride 2 MG Tablet PO (16:32)
[2021-04-30 17:44] LABS: M R Staph aureus DNA By PCR Negative (Negative); Probe Check PASS; Specimen Processing Control PASS
[2021-04-30 19:41] VITALS: BP 117/56; PULSE 79; RESP 18; TEMP 36.6; O2SAT 95
[2021-04-30 20:51] LABS: Partial Thromboplast Time > 200.0 Seconds (24.1-36.2)
[2021-04-30 21:37] VITALS: BP 117/56; PULSE 79
[2021-04-30] MEDS: Metoprolol Tartrate 25 MG Tablet PO (21:37)
[2021-04-30] MEDS: Atorvastatin Calcium 40 MG Tablet PO (21:38)
[2021-04-30] MEDS: Mirtazapine 15 MG Tablet 7.5 MG PO (21:38)
[2021-04-30] MEDS: 0.9% Saline Lock 10 ML Syringe IV (21:45)
[2021-04-30 21:50] LABS: Bedside Glucose 118 mg/dL (74-106)
[2021-05-01] VITALS (30 sets, daily range): BP systolic 81–138; BP diastolic 39–79; PULSE 66–99; RESP 17–28; TEMP 36.1–38.6; O2SAT 91–100
[2021-05-01] MEDS: 0.9% Saline Lock 10 ML Syringe IV ×6 (01:02→20:21)
[2021-05-01 04:04] LABS: Vancomycin, Trough Level 10.5 ug/mL (5.0-15.0)
--- NOTE | 2021-05-01 04:12 | PCM.RX.CS ---
Consult Pharmacy has been consulted to manage selected antiobiotic: Vancomycin Type of Consult: Follow-up Suspected Infection: Pneumonia Prior Doses of Antibiotics Received/Current Regimen: Medications Vancomycin HCl 1,250 mg/ (Sodium Chloride) 275 mls @ 167 mls/hr IV Q24H AJIT Last Admin: 05/01/21 02:39 Dose: Infused Labs: Sodium 144 mmol/L (136-145) 04/30/21 06:24 Potassium 3.8 mmol/L (3.5-5.1) 04/30/21 06:24 Chloride 118 mmol/L (98-107) H 04/30/21 06:24 Carbon Dioxide 22.0 mmol/L (21.0-32.0) 04/30/21 06:24 Anion Gap 4 (5-15) L 04/30/21 06:24 BUN 26 mg/dL (7-18) H 04/30/21 06:24 Creatinine 1.51 mg/dL (0.70-1.30) H 04/30/21 06:24 Est GFR (MDRD) Af Amer 59 mL/min (>60) L 04/30/21 06:24 Est GFR (MDRD) Non-Af 49 mL/min (>60) L 04/30/21 06:24 BUN/Creatinine Ratio 17.2 RATIO (10-20) 04/30/21 06:24 Glucose 90 mg/dL (74-106) 04/30/21 06:24 Vancomycin Trough 10.5 ug/mL (5.0-15.0) 04/30/21 22:58 Microbiology: Microbiology 04/29/21 11:30 Nasal Secretion SARS-CoV-2 Antigen (Rapid) - Final Weight used for dosin kg Estimated Creatinine Clearance: 48 Goal Trough: 10-15 mcg/mL Pharmacy Plan for Drug Dosing: Vancomycin trough level of 10.5 was within target range of 10-15. Will continue same dosing of 1250mg q24h, and re-draw a trough in 2 days. Pharmacy Service will continue to monitor and adjust dosing as required. Follow-Up Labs: Trough Vancomycin Labs to be done on [date and time ordered]: 05/02/21 @2300
[2021-05-01 05:35] LABS: Partial Thromboplast Time 160.5 Seconds (24.1-36.2)
--- NOTE | 2021-05-01 06:02 | PN.CC_ITS ---
Assessment & Plan Assessment/Plan (1) Acute on chronic respiratory failure with hypoxemia: PLAN: RECOMMENDATIONS: 1. Wean supplemental oxygen to maintain saturations at or above 90%. 2. Continue empiric antimicrobials. Okay to discontinue vancomycin from my perspective. 3. Proceed with MBSS to further assess swallow function. Diet per speech therapy recommendations. 4. Transfuse 1 unit packed red blood cells today. 5. Continue to hold Eliquis and continue weight-based heparin infusion. 6. Continue PPI therapy as ordered. 7. Encourage incentive spirometer use while in bed and mobilize patient as tolerated. IMPRESSIONS: 1. Acute on chronic hypoxemic respiratory failure The patient initially presented to the ED with increasing oxygen demand while in the transitional care unit. He was documented for a short period of time to require a nonrebreather. His chest imaging did reveal progressive infiltrates, most pronounced throughout the left hemithorax. The patient does have a history of microaspiration. At this time, I agree with continuing empiric antimicrobials, pending infectious work-up. However, given negative MRSA screen, will discontinue vancomycin. Agree with further speech therapy evaluation with MBSS. The patient is currently maintaining appropriate oxygen saturations on his baseline 4 L/min requirement. Continue to encourage incentive spirometer use and mobilize patient as tolerated. 2. Anemia During the patient's last hospitalization, he was identified as having pulmonary emboli and was subsequently started on Eliquis. His hemoglobin has dropped to a per of 7.1 g/dL. There are no overt signs of active blood loss anywhere. However, we will plan to transfuse 1 unit of packed red blood cells today. Continue to hold Eliquis and continue weight-based heparin infusion. Continue PPI therapy as ordered. 3. History of rheumatoid arthritis/history of non-Hodgkin's lymphoma/heart failure with preserved ejection fraction/chronic tobacco dependency Complicates care, management, recovery and prognosis. The patient does receive rituximab on an outpatient basis for his rheumatoid arthritis, per report. This note was generated with Sep[employer]ensor dictation software. It may contain incorrect words, spelling, and punctuation that were not noted in checking the note before signing. Subjective Subjective The patient was seen and examined at the bedside this morning. Events from the last 24 hours have been reviewed. The patient is currently afebrile, hemodyna mically stable and maintaining appropriate oxygen saturations on 4 L/min via nasal cannula. The patient is documented to be overall net +2.3 L for the hospitalization. Hemoglobin is still stable at 7.1 g/dL this morning. Creatinine is stable as well. The patient remains on empiric antimicrobials along with a heparin infusion. The patient was evaluated by speech therapy who recommended 100% supervision with p.o. intake and completion of an MBSS to assess swallow function. Objective Data Objective Data The patient's most recent lab work, culture data and imaging studies have all been personally reviewed. Surface echocardiogram dated March 2021 demonstrated stage I diastolic dysfunction and mild aortic stenosis. Strep and urine Legionella antigens were negative. Blood cultures have not demonstrated any growth to date. MRSA screen was negative. Vital Signs: Vital Signs Temp Pulse Resp BP Pulse Ox 98.2 F 80 18 138/62 H 94 05/01/21 02:00 05/01/21 02:00 05/01/21 02:00 05/01/21 02:00 05/01/21 02:00 Oxygen Flow Rate (L/min) 4 Oxygen Delivery Method Nasal Cannula Weight: 90.8 kg Body Mass Index (BMI) 27.9 Intake & Output: Intake and Output for Last 24 Hours 04/29/21 04/30/21 05/01/21 23:59 23:59 23:59 Intake Total 1110 / 1110 1055.73 / 1055.73 385.3 / 385.3 Output Total 250 / 250 Balance 1110 / 1110 805.73 / 805.73 385.3 / 385.3 Medical Nutrition Assessment Dietitian: Malnutrition Criteria Met Start: 04/30/21 11:49 Freq: Status: Active Protocol: Document 04/30/21 11:49 YUKI (Rec: 04/30/21 11:49 [facility] [id number]) Nutrition Malnutrition Evidence of Malnutrition Exists Yes Malnutrition (severe): Acute Illness/Injury Evidenced By Suboptimal Energy Intake ( Severe),Weight Loss (Severe), Physical Changes (Moderate) Clinical Problem Acute Disease or Injury Related Malnutrition Etiology related to COVID in Feb 2021 and subsequent illnesses requiring hospitalizations since making it difficult to consume adequate nutrition to meet est nutritional needs Signs/Symptoms as evidenced by 9.2% wt loss and <50% po intake at most meals x past ~ 6 wks and also sunken orbital/temporal areas, fat/muscle loss of scapula, clavicle, triceps, legs Status Active Problem Recommendation Dietitian Recommendations/Changes When medically able, rec liberal Regular diet - consistency per HIGH SCHOOL ART TEACHER - d/t s/s of malnutrition When medically able rec 4 oz chocolate ensure enlive 4x/day w/ medpass for increased nutrition if consumed (Pt will NOT drink glucerna shake). Lab / Micro Data Attestation: I reviewed the patient's lab results. Result Diagrams: 05/01/21 05:17 05/01/21 05:17 Labs: Laboratory Results - last 24 hr 04/30/21 06:14: PT 27.9 H, INR 2.7, APTT 49.1 H 04/30/21 06:24: WBC 4.9, RBC 2.71 L, Hgb 7.1 L, Hct 22.2 L, MCV 81.9, MCH 26.2 L , MCHC 32.0, RDW Std Deviation 50.5 H, RDW Coeff of Rafael 17.2 H, Plt Count 292, MPV 10.2, Immature Gran % (Auto) 1.200 H, Neut % (Auto) 78.0 H, Lymph % (Auto) 10.7 L, [place] % (Auto) 7.8, Eos % (Auto) 2.1, Baso % (Auto) 0.2, Absolute Neuts (auto) 3.8, Absolute Lymphs (auto) 0.52 L, Nucleated RBC % 0, Anisocytosis 1+ 04/30/21 06:24: Sodium 144, Potassium 3.8, Chloride 118 H, Carbon Dioxide 22.0, Anion Gap 4 L, BUN 26 H, Creatinine 1.51 H, Estim Creat Clear Calc 47.79, Est GFR (MDRD) Af Amer 59 L, Est GFR (MDRD) Non-Af 49 L, BUN/Creatinine Ratio 17.2, Glucose 90, Calcium 8.2 L, Total Bilirubin 0.30, AST 45 H, ALT 33, Alkaline Phosphatase 52, Total Protein 4.6 L, Albumin 1.4 L, Globulin 3.2, Albumin/Globulin Ratio 0.4 L 04/30/21 07:46: POC Glucose 78 04/30/21 11:00: Blood Type AB POSITIVE, Antibody Screen NEGATIVE 04/30/21 12:15: POC Glucose 102 04/30/21 15:54: POC Glucose 109 H 04/30/21 16:00: MRSA (PCR) Negative 04/30/21 19:45: APTT > 200.0 H* 04/30/21 21:34: POC Glucose 118 H 04/30/21 22:58: Vancomycin Trough 10.5 05/01/21 05:17: APTT 160.5 H* Micro: Microbiology 04/29/21 11:30 Nasal Secretion SARS-CoV-2 Antigen (Rapid) - Final Radiography Diagnostic Testing: Radiology Impression Brain MRI 04/29/21 15:26 IMPRESSION: No evidence for acute infarct. Chronic small vessel ischemic gliosis. Decreased paranasal sinus inflammatory disease. at 0954 Reported and signed by: Jessika Vo MD Electronically Signed: Jessika Vo MD at 9:53 EST Reading Location ID and State: [facility] / [place] Tel , Service support , Physical Exam Const alert and no apparent distress Constitutional Narrative: Resting comfortably in bed. General Appearance: cooperative HEENT normocephalic, head/scalp atraumatic and moist oral mucous membranes Eyes PERRL and EOMs intact bilaterally Neck supple General: trachea midline Chest inspection of chest normal Resp Resp Narrative: Limited inspiratory effort. Auscultation: diminished lung sounds Cardio regular rate and regular rhythm GI normal to inspection, nondistended, normoactive bowel sounds Extremity General Extremity: edema bilateral lower extremity; Negative for clubbing Skin no rashes or lesions noted Neuro CN's II-XII intact bilaterally and no focal motor deficits Psych Mood & Affect: flat affect Charges/Coding Visit Charges Inpatient E&M: 18497 Subs Hosp L3
[2021-05-01 06:18] LABS: Absolute Lymphocyte Count 0.56 X10^3/uL (0.83-4.51); Absolute Neutrophil Count 5.7 X10^3/uL (2.0-7.7); Basophil# 0.01 X10^3/uL; Basophil% 0.1 % (0-1); Eosinophil# 0.13 X10^3/uL; Eosinophils% 1.9 % (0-5); Hematocrit 22.7 % (40-54); Hemoglobin 7.1 g/dL (13.0-16.5); Lymphocyte # 0.56 X10^3/ul (0.83-4.51); Mean Corp Hgb Conc 31.3 g/dL (32-36); Mean Corpuscular Hgb 25.2 pg (27.0-32.0); Mean Corpuscular Volume 80.5 fL (80-94); Mean Platelet Vol. 10.1 fl (6.2-12.0); Monocyte# 0.46 X10^3/uL; Monocyte% 6.6 % (0-10); NRBC Flagged by Analyzer 0 % (0-5); Neutrophil # 5.71 X10^3/uL (2.7-7.7); Neutrophil % 81.8 % (47-70); POSITIVE DIFFERENTIAL YES; Platelet Count 389 K/mm3 (150-450); RBC Distribution Width CV 17.3 % (11.6-14.6); RBC Distribution Width SD 50.3 fl (35.1-43.9); Red Blood Count 2.82 M/mm3 (4.6-6.2)
[2021-05-01 06:26] LABS: Differential Indicated SCAN CRITERIA MET
[2021-05-01 06:33] LABS: Anion Gap 5 (5-15); BUN 25 mg/dL (7-18); BUN/Creat Ratio 16.7 RATIO (10-20); Chloride 118 mmol/L (98-107); EST Glomerular Filtration Rate 49 mL/min (>60); Est Glom Filt Rate - Afr Amer 59 mL/min (>60); Estimated Creatinine Clearance 48.11 ml/min; Glucose 57 mg/dL (74-106); Potassium 3.8 mmol/L (3.5-5.1); Sodium Level 145 mmol/L (136-145)
[2021-05-01 06:46] LABS: Bedside Glucose 56 mg/dL (74-106)
[2021-05-01 06:55] LABS: Anisocytosis 1+; Burr Cells RARE
[2021-05-01 07:01] LABS: Bedside Glucose 125 mg/dL (74-106)
--- NOTE | 2021-05-01 08:36 | PCM.PN.HOSP ---
Subjective Subjective Patient seen appears ill looking. T-max over the past 24 hours 101.5 patient was also found to be hypotensive while has been transfused. Sepsis screen initiated with fluid bolus lactic acid level. Already has a source of infection and is on antibiotics Objective Data Objective Data Vital Signs: Vital Signs Temp Pulse Resp BP Pulse Ox 101.5 F H 99 20 H 127/56 H 94 05/01/21 08:10 05/01/21 08:10 05/01/21 08:10 05/01/21 08:10 05/01/21 08:10 Oxygen Flow Rate (L/min) 4 Oxygen Delivery Method Nasal Cannula Weight: 90.8 kg Body Mass Index (BMI) 27.9 Intake & Output: Intake and Output for Last 24 Hours 04/29/21 04/30/21 05/01/21 23:59 23:59 23:59 Intake Total 1110 / 1110 1055.73 / 1055.73 385.3 / 385.3 Output Total 250 / 250 200 / 200 Balance 1110 / 1110 805.73 / 805.73 185.3 / 185.3 Medical Nutrition Assessment Dietitian: Malnutrition Criteria Met Start: 04/30/21 11:49 Freq: Status: Active Protocol: Document 04/30/21 11:49 SLA (Rec: 04/30/21 11:49 SLA [id number]) Nutrition Malnutrition Evidence of Malnutrition Exists Yes Malnutrition (severe): Acute Illness/Injury Evidenced By Suboptimal Energy Intake ( Severe),Weight Loss (Severe), Physical Changes (Moderate) Clinical Problem Acute Disease or Injury Related Malnutrition Etiology related to COVID in Feb 2021 and subsequent illnesses requiring hospitalizations since making it difficult to consume adequate nutrition to meet est nutritional needs Signs/Symptoms as evidenced by 9.2% wt loss and <50% po intake at most meals x past ~ 6 wks and also sunken orbital/temporal areas, fat/muscle loss of scapula, clavicle, triceps, legs Status Active Problem Recommendation Dietitian Recommendations/Changes When medically able, rec liberal Regular diet - consistency per [employer] - d/t s/s of malnutrition When medically able rec 4 oz chocolate ensure enlive 4x/day w/ medpass for increased nutrition if consumed (Pt will NOT drink glucerna shake). Lab / Micro Data Result Diagrams: 05/01/21 05:17 05/01/21 05:17 Labs: Laboratory Results - last 24 hr 04/30/21 06:14: PT 27.9 H, INR 2.7, APTT 49.1 H 04/30/21 11:00: Blood Type AB POSITIVE, Antibody Screen NEGATIVE 04/30/21 11:00: Crossmatch See Detail 04/30/21 12:15: POC Glucose 102 04/30/21 15:54: POC Glucose 109 H 04/30/21 16:00: MRSA (PCR) Negative 04/30/21 19:45: APTT > 200.0 H* 04/30/21 21:34: POC Glucose 118 H 04/30/21 22:58: Vancomycin Trough 10.5 05/01/21 05:17: APTT 160.5 H* 05/01/21 05:17: WBC 7.0, RBC 2.82 L, Hgb 7.1 L, Hct 22.7 L, MCV 80.5, MCH 25.2 L, MCHC 31.3 L, RDW Std Deviation 50.3 H, RDW Coeff of Rafael 17.3 H, Plt Count 389, MPV 10.1, Immature Gran % (Auto) 1.600 H, Neut % (Auto) 81.8 H, Lymph % (Auto) 8.0 L, [place] % (Auto) 6.6, Eos % (Auto) 1.9, Baso % (Auto) 0.1, Absolute Neuts (auto) 5.7, Absolute Lymphs (auto) 0.56 L, Nucleated RBC % 0, Anisocytosis 1+, [place] Cells RARE 05/01/21 05:17: Sodium 145, Potassium 3.8, Chloride 118 H, Carbon Dioxide 22.0, Anion Gap 5, BUN 25 H, Creatinine 1.50 H, Estim Creat Clear Calc 48.11, Est GFR (MDRD) Af Amer 59 L, Est GFR (MDRD) Non-Af 49 L, BUN/Creatinine Ratio 16.7, Glucose 57 L, Calcium 8.0 L 05/01/21 06:20: POC Glucose 56 L 05/01/21 06:55: POC Glucose 125 H Micro: Microbiology 04/29/21 11:30 Blood Culture (Wb) - Arm Right Blood Culture - Preliminary No growth in 48 hours. 04/29/21 11:03 Blood Culture (Wb) - Anticubital Left Blood Culture - Preliminary No growth in 48 hours. 05/01/21 06:30 Urine, Clean Catch Legionella Antigen - Final 05/01/21 06:30 Urine, Clean Catch Streptococcus pneumoniae Antigen (M - Final 04/29/21 11:30 Nasal Secretion SARS-CoV-2 Antigen (Rapid) - Final Radiography Diagnostic Testing: Radiology Impression Brain MRI 04/29/21 15:26 IMPRESSION: No evidence for acute infarct. Chronic small vessel ischemic gliosis. Decreased paranasal sinus inflammatory disease. at [id number] Reported and signed by: Jessika Vo MD Electronically Signed: Jessika Vo MD at 9:53 EST Reading Location ID and State: [facility] / [place] Tel , Service support , Physical Exam Narrative GENERAL: Frail looking HEENT: Atraumatic; EYES; Anicteric, Normal Conjunctiva NECK; supple, normal thyroid, RESPIRATORY: Diminished to auscultation CARDIOVASCULAR: Regular S1 S2, GI: soft, normoactive bowel sounds, : No Renal angle tenderness; EXTREMITIES: No edema, no clubbing, MUSCULOSKELETAL: no muscle wasting NEURO: Awake; no lateralizing signs. SKIN: No Rash PSYCH; Flat affect Assessment & Plan Assessment/Plan (1) Dyspnea: (2) Pleural effusion: PLAN: Patient is a 70-year-old gentleman with history of recent COVID-19 pneumonia later complicated by bilateral pulmonary embolism presented to the emergency department with progressive shortness of breath. An assessment of acute on chronic hypoxic respiratory failure made admitted to regular nursing floor for further management 1. Acute on chronic hypoxic respiratory. ?Multifactorial including recent bilateral pulmonary embolism, recent Covid pneumonia with suspected residual pulmonary fibrosis as well as possible aspiration pneumonitis. Patient was started on broad-spectrum antibiotic therapy with vancomycin and Zosyn with consultation placed to pulmonary and ID. Case was discussed with Dr. Singleton with pulmonary medicine plan is for patient to be kept n.p.o. for speech and swallow eval 2. Suspected sepsis ?05/01/2021 patient has source of infection ~Possible aspiration pneumonia currently hypotensive. Sepsis work-up initiated with lactic acid levels ordered. Patient already on broad-spectrum antibiotic therapy. Cultures were obtained on admission however with patient continued to experience high-grade fever repeat cultures ordered. Patient has already been seen by ID. With patient being hypotensive patient was resuscitated with IV fluids. Plan is to transfer patient to the intensive care unit 3. Recent bilateral pulmonary embolism COVID induced coagulopathy ?Patient is on Eliquis did continue -05/01/2021; Eliquis held upon suggestion by pulmonary medicine currently on heparin 4. Anemia - Secondary to chronic disorder monitoring H&H and transfuse if patient becomes symptomatic or hemoglobin falls below 7.Patient hemoglobin as of 04/30/2021 7.1 repeat H&H ordered for a.m. -05/01/2021. With patient deemed to be symptomatic and order was given for patient to be transfused with 1 unit PRBC in addition iron studies B12 ferritin level and reticulocyte count ordered prior to initiation of transfusion. Also did order stool for guaiac and if positive will consider consultation with GI for possible endoscopic evaluation 5. Diabetes mellitus type II -patient's oral hypoglycemics held. Placed on long acting insulin, Accu-Cheks a.c. and at bedtime and covered with sliding scale insulin 6. Rheumatoid arthritis Patient is on rituximab as outpatient. 7. Non Hodgkin's lymphoma ?Apparently in remission 8. Coronary artery disease ?With previous PCI of an LAD RCA and mid circumflex lesions 9. Dyslipidemia ?Per history currently not on any statin therapy 10. Tobacco dependence - Counseled on cessation, offered nicotine patch for tobacco cravings7 11. Physical deconditioning - Requested for PT OT eval and social work specialist to assist with discharge planning 12. Hypertension - Blood pressure controlled, home medications continued with dose adjustment as needed -05/01/2021 patient antihypertensives held in view of his relative low blood pressure 13. DVT prophylaxis - on on heparin 14. Acute encephalopathy ?Possibly related to #1 however MRI of the brain ordered to rule out a neurological etiology - 15. Severe malnutrition ?As evidenced by suboptimal energy intake severe weight loss and this is related to patient chronic pancreatitis as well as alcoholism. Recommendation as noted above by dietitian 16. Suspected depression ?Patient started on Lexapro Charges/Coding Visit Charges Inpatient E&M: 51284 Subs Hosp L3
[2021-05-01] MEDS: Metoprolol Tartrate 25 MG Tablet PO (08:40)
[2021-05-01] MEDS: Acetaminophen 325 MG Tablet 650 MG PO ×2 (08:40→20:21)
[2021-05-01] MEDS: Aspirin E.C. 81 MG Tablet PO (08:40)
[2021-05-01] MEDS: Cyanocobalamin 500 MCG Tablet 1000 MCG PO (08:40)
[2021-05-01] MEDS: Cholecalciferol (VIT D3) 25 MCG TABLET (1,000 UNITS) PO (08:41)
[2021-05-01] MEDS: Glimepiride 2 MG Tablet PO (08:41)
[2021-05-01] MEDS: Polyethylene Glycol 3350 17 GM PACKET PO (08:41)
[2021-05-01] MEDS: Senna/Docusate Sodium 1 Tablet PO (08:41)
[2021-05-01] MEDS: Ferrous Sulfate 325 MG Tablet PO ×2 (08:41→16:20)
[2021-05-01 09:18] LABS: Platelet Count 403 K/mm3 (150-450); RET-HE 25.1 pg (30-35); Reticulocyte Count 1.72 % (0.5-1.5)
[2021-05-01 09:26] LABS: Ferritin 544 ng/mL (26-388); Iron 15 ug/dL (65-175); Iron Binding Capacity,Total 152 ug/dL (250-450); PERCENT IRON SATURATION 9.9 % (15.0-55.0)
--- NOTE | 2021-05-01 09:50 | CASEMGMT ---
Social Work Note Pt is not medically ready for discharge yet. SW placed a call to Rosanna with TCU and updated her. Plan: Return to TCU pending pre-cert Brittani Hernandez [employer], [employer]
--- NOTE | 2021-05-01 10:03 | PCM.PN.ID ---
Physical Exam Narrative Feeling ok. Denies fever, no cough, no dyspnea, no n/v/d/ Const no apparent distress General Appearance: cooperative Resp clear to auscultation bilaterally Auscultation: diminished lung sounds Cardio regular rate and regular rhythm GI soft to palpation, non-tender and non-distended Skin no rashes or lesions noted ID ID: Route of nutrition/ use of supplements: [] Nutritional Intake: [] IV Site: [] Ball Catheter: [] Assessment & Plan Assessment/Plan (1) Dyspnea: PLAN: Cxs sent, on empiric zosyn. Recent covid, rhinovirus, CAP, and PEs. Has had covid vaccine x3. Pulm following. Possible aspiration, getting swallow eval. Fever last night to 101.5 but feeling better. Will follow
[2021-05-01 10:37] LABS: Vitamin B12 1806 pg/mL (211-911)
--- NOTE | 2021-05-01 11:04 | NURSING ---
pt back in bed, denies dizziness as he states he had a little when up in the chair.
[2021-05-01] MEDS: Escitalopram Oxalate 10 MG Tablet PO (11:16)
[2021-05-01] MEDS: Pantoprazole Sodium 40 MG Tablet PO (11:16)
[2021-05-01 11:46] LABS: Bedside Glucose 125 mg/dL (74-106)
[2021-05-01 12:05] LABS: Lactic Acid 3.1 mmol/L (0.4-1.9)
[2021-05-01] MEDS: 0.9% Normal Saline 1,000 ML 999 ML IV ×2 (12:09→13:11)
--- NOTE | 2021-05-01 12:57 | SEPSISNOTE ---
Sepsis Note Physical Exam/Vitals Objective: Temp Pulse Resp BP Pulse Ox 97.1 F L 66 25 H 113/53 L 95 05/01/21 12:09 05/01/21 12:09 05/01/21 12:09 05/01/21 12:09 05/01/21 12:09 05/01/21 05/01/21 05/01/21 11:42 11:15 09:44 WBC RBC Hgb Hct MCV MCH MCHC RDW Std Deviation RDW Coeff of Rafael Plt Count MPV Immature Gran % (Auto) Neut % (Auto) Lymph % (Auto) [place] % (Auto) Eos % (Auto) Baso % (Auto) Absolute Neuts (auto) Absolute Lymphs (auto) Nucleated RBC % Anisocytosis [place] Cells Retic Count Immature Retic Fraction Retic Hgb Equivalent APTT Sodium Potassium Chloride Carbon Dioxide Anion Gap BUN Creatinine Estim Creat Clear Calc Est GFR (MDRD) Af Amer Est GFR (MDRD) Non-Af BUN/Creatinine Ratio Glucose Lactic Acid 3.1 H* Calcium Iron TIBC Iron Saturation Ferritin Vitamin B12 1806 H Vancomycin Trough MRSA (PCR) POC Glucose 125 H Blood Type Antibody Screen Crossmatch 05/01/21 05/01/21 05/01/21 06:55 06:20 05:17 WBC RBC Hgb Hct MCV MCH MCHC RDW Std Deviation RDW Coeff of Rafael Plt Count MPV Immature Gran % (Auto) Neut % (Auto) Lymph % (Auto) [place] % (Auto) Eos % (Auto) Baso % (Auto) Absolute Neuts (auto) Absolute Lymphs (auto) Nucleated RBC % Anisocytosis [place] Cells Retic Count Immature Retic Fraction Retic Hgb Equivalent APTT Sodium Potassium Chloride Carbon Dioxide Anion Gap BUN Creatinine Estim Creat Clear Calc Est GFR (MDRD) Af Amer Est GFR (MDRD) Non-Af BUN/Creatinine Ratio Glucose Lactic Acid Calcium Iron 15 L TIBC 152 L Iron Saturation 9.9 L Ferritin 544 H Vitamin B12 Vancomycin Trough MRSA (PCR) POC Glucose 125 H 56 L Blood Type Antibody Screen Crossmatch 05/01/21 05/01/21 05/01/21 05:17 05:17 05:17 WBC 7.0 RBC 2.82 L Hgb 7.1 L Hct 22.7 L MCV 80.5 MCH 25.2 L MCHC 31.3 L RDW Std Deviation 50.3 H RDW Coeff of Rafael 17.3 H Plt Count 389 MPV 10.1 Immature Gran % (Auto) 1.600 H Neut % (Auto) 81.8 H Lymph % (Auto) 8.0 L [place] % (Auto) 6.6 Eos % (Auto) 1.9 Baso % (Auto) 0.1 Absolute Neuts (auto) 5.7 Absolute Lymphs (auto) 0.56 L Nucleated RBC % 0 Anisocytosis 1+ [place] Cells RARE Retic Count 1.72 H Immature Retic Fraction 33.10 H Retic Hgb Equivalent 25.1 L APTT Sodium 145 Potassium 3.8 Chloride 118 H Carbon Dioxide 22.0 Anion Gap 5 BUN 25 H Creatinine 1.50 H Estim Creat Clear Calc 48.11 Est GFR (MDRD) Af Amer 59 L Est GFR (MDRD) Non-Af 49 L BUN/Creatinine Ratio 16.7 Glucose 57 L Lactic Acid Calcium 8.0 L Iron TIBC Iron Saturation Ferritin Vitamin B12 Vancomycin Trough MRSA (PCR) POC Glucose Blood Type Antibody Screen Crossmatch 05/01/21 04/30/21 04/30/21 05:17 22:58 21:34 WBC RBC Hgb Hct MCV MCH MCHC RDW Std Deviation RDW Coeff of Rafael Plt Count MPV Immature Gran % (Auto) Neut % (Auto) Lymph % (Auto) [place] % (Auto) Eos % (Auto) Baso % (Auto) Absolute Neuts (auto) Absolute Lymphs (auto) Nucleated RBC % Anisocytosis [place] Cells Retic Count Immature Retic Fraction Retic Hgb Equivalent APTT 160.5 H* Sodium Potassium Chloride Carbon Dioxide Anion Gap BUN Creatinine Estim Creat Clear Calc Est GFR (MDRD) Af Amer Est GFR (MDRD) Non-Af BUN/Creatinine Ratio Glucose Lactic Acid Calcium Iron TIBC Iron Saturation Ferritin Vitamin B12 Vancomycin Trough 10.5 MRSA (PCR) POC Glucose 118 H Blood Type Antibody Screen Crossmatch 04/30/21 04/30/21 04/30/21 19:45 16:00 15:54 WBC RBC Hgb Hct MCV MCH MCHC RDW Std Deviation RDW Coeff of Rafael Plt Count MPV Immature Gran % (Auto) Neut % (Auto) Lymph % (Auto) [place] % (Auto) Eos % (Auto) Baso % (Auto) Absolute Neuts (auto) Absolute Lymphs (auto) Nucleated RBC % Anisocytosis [place] Cells Retic Count Immature Retic Fraction Retic Hgb Equivalent APTT > 200.0 H* Sodium Potassium Chloride Carbon Dioxide Anion Gap BUN Creatinine Estim Creat Clear Calc Est GFR (MDRD) Af Amer Est GFR (MDRD) Non-Af BUN/Creatinine Ratio Glucose Lactic Acid Calcium Iron TIBC Iron Saturation Ferritin Vitamin B12 Vancomycin Trough MRSA (PCR) Negative POC Glucose 109 H Blood Type Antibody Screen Crossmatch 04/30/21 04/30/21 11:00 11:00 WBC RBC Hgb Hct MCV MCH MCHC RDW Std Deviation RDW Coeff of Rafael Plt Count MPV Immature Gran % (Auto) Neut % (Auto) Lymph % (Auto) [place] % (Auto) Eos % (Auto) Baso % (Auto) Absolute Neuts (auto) Absolute Lymphs (auto) Nucleated RBC % Anisocytosis [place] Cells Retic Count Immature Retic Fraction Retic Hgb Equivalent APTT Sodium Potassium Chloride Carbon Dioxide Anion Gap BUN Creatinine Estim Creat Clear Calc Est GFR (MDRD) Af Amer Est GFR (MDRD) Non-Af BUN/Creatinine Ratio Glucose Lactic Acid Calcium Iron TIBC Iron Saturation Ferritin Vitamin B12 Vancomycin Trough MRSA (PCR) POC Glucose Blood Type AB POSITIVE Antibody Screen NEGATIVE Crossmatch See Detail General: Oriented x3 and Cooperative Lungs: Diminished Cardiovascular: Regular rate and Regular Rhythm Capillary Refill: >3 seconds Peripheral Pulses: Normal Skin Color: Pale Assessment/Plan Patient did respond to this the fluid resuscitation. Hemoglobin however remains low patient to receive additional units of PRBC. Per nursing staff patient continues to experience some diarrhea which is dark in color. Plan is to initiate Protonix drip and put heparin on hold in view of his active GI bleed if patient is not able to tolerate systemic anticoagulation patient may be a candidate for IVC filter Attestation Sepsis Attestation: Sepsis re-evaluation was performed
[2021-05-01 13:48] LABS: Hematocrit 22.8 % (40-54); Hemoglobin 7.3 g/dL (13.0-16.5)
[2021-05-01 14:01] LABS: Partial Thromboplast Time 72.5 Seconds (24.1-36.2)
--- NOTE | 2021-05-01 14:59 | CASEMGMT ---
Palliative Cares in network with pt insurance are [facility] [employer] [phone], [facility] [phone]. TC to [facility], they are unable to state if in network but can if a face sheet is faxed to . Notified TCU SW of the above, should pt need palliative at dc as [facility] is not in network.
--- NOTE | 2021-05-01 15:21 | VDLE_ITS ---
Reason For Study: Elevated D-dimer RIGHT LEFT GSV is normal. GSV is normal. CFV is compressible, spontaneous, phasic, FV is compressible, spontaneous, phasic, competent and demonstrates normal competent and demonstrates normal augmentation. augmentation. FV is compressible, spontaneous, phasic, POP V is compressible, spontaneous, phasic, competent and demonstrates normal competent and demonstrates normal augmentation. augmentation. POP V is compressible, spontaneous, phasic, T/P Trunk is compressible. competent and demonstrates normal PTV is compressible. augmentation. LT PerV is compressible. T/P Trunk is compressible. CFV and PTV are noncompressible with minimal PTV is compressible. venous flow noted. RT PerV is compressible. Procedure This is a venous duplex using B-mode, color flow and spectral Doppler. Exam performed portable in ICU/CCU. A preliminary report was called and/or faxed to [facility]. VL/Venous Duplex US - Sharad Extrem Interpretation Summary There is no evidence of right lower extremity deep vein thrombosis. Acute deep venous thrombosis left common femoral and posterior tibial veins Patent, compressible bilateral great saphenous veins Ordering Physician: Jordan Ortiz Referring Physician: Donna Will M.D. Performed By: Brittani العلي RVT
[2021-05-01 15:29] LABS: Reflex Lactate? Y
[2021-05-01 15:51] LABS: Bedside Glucose 163 mg/dL (74-106)
[2021-05-01] MEDS: Insulin Lispro 100 UNIT/ML INSULN.PEN SC ×2 (16:20→22:28)
[2021-05-01 16:41] LABS: Lactic Acid 1.1 mmol/L (0.4-1.9)
--- NOTE | 2021-05-01 16:59 | CON.PCM.GI_ITS ---
HPI Consult Data Date of Consult: 05/01/21 HPI Narrative HPI Narrative: SAL ALONZO, is a 70 M who presentswith worsening shortness of breath. He was recently discharged to TCU on 04/27/21. Patient He was initially admitted on 03/23/21 with COVID-19 pneumonia/encephalopathy. Patient was discharged on 03/25/21 off oxygen. He was readmitted on 04/08/21 with lethargy, bacterial pneumonia in the setting of recent Covid. At that time, CT of the chest was negative for acute PE but showed extensive interstitial infiltrates. Patient was found to also have rhinovirus. He was discharged home on 04/11/21 with oxygen, 3L and a prednisone taper. He had refused SNF placement at that time. He was followed up in the outpatient and repeatedly refused SNF placement. He was readmitted again on 04/21/21 with difficulty caring for himself. Patient's has stated that patient was lethargic, poor p.o. intake, unable to take care of self. In this hospital stay, he was found to be hypoxic soon after admission and found to have multiple PE. Patient was discharged to TCU on 04/27/21 for rehab with Eliquis and 2 more days of Augmentin to complete 1 week. During this admission, patient was very apathetic, not willing to use his incentive spirometer, found to be lying mostly in bed. He had denied being depressed several times. He refused to be started on antidepressant. Patient was sent to the ED from TCU with hypoxia. He was discharged on 4 L of oxygen but was said to require more oxygen up to 6 L and later on a nonrebreather. CTA of the chest done today was negative for acute PE, showed moderate bilateral subsegmental atelectasis, pneumonitis, pulmonary edema or ARDS. Moderate left pleural effusion with left lower lobe atelectass. I was consulted to see him due to his decreasing hemoglobin. He has been anemic since 2016 and has been getting progressively worse. i PENDING SALE TO [facility] Medical History Allergic rhinitis Arthritis Asthma Atherosclerosis of coronary artery of [place] heart without angina pectoris Bronchitis Cancer Chronic bronchitis Colon polyp COPD (chronic obstructive pulmonary disease) COVID-19 COVID-19 in immunocompromised patient Diabetes Gastritis History of basal cell carcinoma History of diabetes mellitus, type II History of non-Hodgkin's lymphoma History of pilonidal cyst Hyperlipidemia Hypertension Iron deficiency anemia Iron deficiency anemia Lab test negative for COVID-19 virus Nicotine dependence, cigarettes, uncomplicated Non-Hodgkin lymphoma Obesity Pneumonia Pneumonia due to COVID-19 virus Positive colorectal cancer screening using Cologuard test RA (rheumatoid arthritis) Tobacco use URI (upper respiratory infection) 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 complications Home Medications aspirin 81 mg tablet,delayed release 81 mg PO DAILY 09/28/19 [History Last Taken Unknown] cholecalciferol (vitamin D3) 25 mcg (1,000 unit) capsule 25 mcg PO DAILY 07/17/20 [History Last Taken 04/29/21] nitroglycerin 0.4 mg sublingual tablet 0.4 mg SUBLINGUAL Q5M PRN #30 tab 09/25/20 [Rx Last Taken Unknown] cyanocobalamin (vitamin B-12) 1,000 mcg capsule 1,000 mcg PO DAILY 01/29/21 [History Last Taken 04/29/21] albuterol sulfate 2 puff INHALATION Q6H PRN #6.7 g 04/11/21 [Rx Last Taken Unknown] atorvastatin 40 mg PO QHS 04/21/21 [History Last Taken 04/28/21] amoxicillin-pot clavulanate 875 mg PO BIDCM 04/26/21 [History Last Taken Unknown] apixaban [Eliquis] 10 mg PO BID 04/26/21 [History Last Taken 04/29/21] ferrous sulfate 325 mg PO BID 04/26/21 [History Last Taken 04/29/21] glimepiride 2 mg PO BID 04/26/21 [History Last Taken Unknown] metformin 500 mg PO BID 04/26/21 [History Last Taken 04/29/21] metoprolol tartrate 25 mg PO BID 04/26/21 [History Last Taken 04/29/21] nut.tx.gluc intol,lf,soy-fiber [Glucerna 1.2 Anthony] 120 ml PO 4X/DAY 04/26/21 [History Last Taken Unknown] mirtazapine [Remeron] 7.5 mg PO QHS 04/29/21 [History Last Taken 04/28/21] piperacillin-tazobactam [Zosyn] 3.375 g IV Q8H 04/29/21 [History Last Taken 04/29/21] polyethylene glycol 3350 [Miralax] 17 g PO DAILY 04/29/21 [History Last Taken 04/29/21] senna-docusate sodium 1 tab PO DAILY 04/29/21 [History Last Taken 04/29/21] vancomycin in 0.9 % sodium chl 125 mg IV Q12H 04/29/21 [History Last Taken 04/28/21] Allergy/AdvReac Type Severity Reaction Status Date / Time famotidine [From Pepcid] AdvReac Intermediate Diarrhea Verified 04/29/21 10:45 levofloxacin [From Levaquin] AdvReac Intermediate dizziness Verified 04/29/21 10:45 Family History Father Arthritis Bleeding disorder Hypertension Kidney disease Cancer Skin Anemia blood clots Emphysema lung Mother Colon cancer Cancer Lung Cancer Diabetes Brother Thyroid disorder Surgical History History of coronary artery stent placement (~10/22/13) History of excision of pilonidal cyst History of thymectomy Hx of lymph node excision Social History household members: spouse Smoking Status: Former smoker second hand exposure: Yes quit status: considering quitting alcohol intake: current alcohol intake frequency: holidays/special occasions only substance use type: does not use caffeine: Yes Type: coffee Number of servings: 3 what type of physical activity do you participate in: none frequency: does not exercise seatbelt use: always ROS Review of Systems ROS Unobtainable: other Constitutional Constitutional: Denies fatigue, fever(s), poor appetite, weight gain or weight loss ENT HEENT: Denies mouth lesions Cardiovascular Cardiovascular: Denies abdominal bloating, abdominal edema or abdominal pain Respiratory/Chest Respiratory/Chest: Denies change in mental status, change in phlegm color, chest congestion or chest tightness Gastrointestinal Gastrointestinal: Denies belching, bloating, change in bowel habits, change in stool character, chewing difficulty, coffee ground emesis, constipation, cramping, diarrhea, dyspepsia, dysphagia, early satiety, excessive flatus, fecal incontinence, heartburn, hematemesis, hematochezia, hemorrhoids, loose stools, melena, nausea, odynophagia, rectal bleeding, tenesmus, vomiting or weight changes Genitourinary Genitourinary: Denies abdominal discomfort, burning urination or itching Musculoskeletal Musculoskeletal: Reports as per HPI; Denies muscle weakness or myalgias Integumentary Integumentary: Denies jaundice Neurologic Neurologic: Denies lack of coordination or weakness Psychiatric Psychiatric: Denies confusion, depression, memory loss, mood swings, paranoia or suicidal ideation Endocrine Endocrinology: Denies systems reviewed and no addt'l complaints, except as documented Hematologic/Lymphatic Hematologic/Lymphatic: Denies anemia, easy bleeding, easy bruising or lymphadenopathy Allergic/Immunologic Allergic/Immunologic: Denies systems reviewed and no addt'l complaints, except as documented Physical Exam Const alert General Appearance: cooperative Orientation / Consciousness: oriented to person HEENT hearing grossly normal bilaterally Head and Scalp: normal to inspection Face and Sinus: face symmetric Nose: external nose normal Mouth: oral and palatal mucosa normal Eyes conjunctivae normal General Eye: normal appearance of both eyes Neck full ROM General: normal visual inspection Lymph Lymphatic: no lymphadenopathy noted Chest inspection of chest normal and palpation of chest normal Chest: symmetrical chest wall rise Resp normal respiratory effort Effort and Inspection: able to speak in complete sentences Cardio regular rate GI non-distended Percussion: normal to percussion Rectal Exam: deferred Neuro Speech: speech normal Gait (Neuro): normal gait Medical Records Data Medical Nutrition Assessment Dietitian: Malnutrition Criteria Met Start: 04/30/21 11:49 Freq: Status: Active Protocol: Document 04/30/21 11:49 YUKI (Rec: 04/30/21 11:49 [facility] [id number]) Nutrition Malnutrition Evidence of Malnutrition Exists Yes Malnutrition (severe): Acute Illness/Injury Evidenced By Suboptimal Energy Intake ( Severe),Weight Loss (Severe), Physical Changes (Moderate) Clinical Problem Acute Disease or Injury Related Malnutrition Etiology related to COVID in Feb 2021 and subsequent illnesses requiring hospitalizations since making it difficult to consume adequate nutrition to meet est nutritional needs Signs/Symptoms as evidenced by 9.2% wt loss and <50% po intake at most meals x past ~ 6 wks and also sunken orbital/temporal areas, fat/muscle loss of scapula, clavicle, triceps, legs Status Active Problem Recommendation Dietitian Recommendations/Changes When medically able, rec liberal Regular diet - consistency per [employer] - d/t s/s of malnutrition When medically able rec 4 oz chocolate ensure enlive 4x/day w/ medpass for increased nutrition if consumed (Pt will NOT drink glucerna shake). Lab / Micro Data Result Diagrams: 05/01/21 13:35 05/01/21 05:17 Labs: Laboratory Results - last 24 hr 04/30/21 11:00: Crossmatch See Detail 04/30/21 11:00: Crossmatch See Detail 04/30/21 16:00: MRSA (PCR) Negative 04/30/21 19:45: APTT > 200.0 H* 04/30/21 21:34: POC Glucose 118 H 04/30/21 22:58: Vancomycin Trough 10.5 05/01/21 05:17: APTT 160.5 H* 05/01/21 05:17: WBC 7.0, RBC 2.82 L, Hgb 7.1 L, Hct 22.7 L, MCV 80.5, MCH 25.2 L , MCHC 31.3 L, RDW Std Deviation 50.3 H, RDW Coeff of Rafael 17.3 H, Plt Count 389, MPV 10.1, Immature Gran % (Auto) 1.600 H, Neut % (Auto) 81.8 H, Lymph % (Auto) 8.0 L, [place] % (Auto) 6.6, Eos % (Auto) 1.9, Baso % (Auto) 0.1, Absolute Neuts (auto) 5.7, Absolute Lymphs (auto) 0.56 L, Nucleated RBC % 0, Anisocytosis 1+, [place] Cells RARE 05/01/21 05:17: Sodium 145, Potassium 3.8, Chloride 118 H, Carbon Dioxide 22.0, Anion Gap 5, BUN 25 H, Creatinine 1.50 H, Estim Creat Clear Calc 48.11, Est GFR (MDRD) Af Amer 59 L, Est GFR (MDRD) Non-Af 49 L, BUN/Creatinine Ratio 16.7, Glucose 57 L, Calcium 8.0 L 05/01/21 05:17: Retic Count 1.72 H, Immature Retic Fraction 33.10 H, Retic Hgb Equivalent 25.1 L 05/01/21 05:17: Iron 15 L, TIBC 152 L, Iron Saturation 9.9 L, Ferritin 544 H 05/01/21 06:20: POC Glucose 56 L 05/01/21 06:55: POC Glucose 125 H 05/01/21 09:44: Vitamin B12 1806 H 05/01/21 11:15: Lactic Acid 3.1 H* 05/01/21 11:42: POC Glucose 125 H 05/01/21 13:35: APTT 72.5 H 05/01/21 13:35: Hgb 7.3 L, Hct 22.8 L 05/01/21 15:45: Lactic Acid 1.1 05/01/21 15:46: POC Glucose 163 H Micro: Microbiology 05/01/21 11:00 Stool Stool Occult Blood (FOREST) - Final Occult Blood Positive 04/29/21 11:30 Blood Culture (Wb) - Arm Right Blood Culture - Preliminary No growth in 48 hours. 04/29/21 11:03 Blood Culture (Wb) - Anticubital Left Blood Culture - Preliminary No growth in 48 hours. 05/01/21 06:30 Urine, Clean Catch Legionella Antigen - Final 05/01/21 06:30 Urine, Clean Catch Streptococcus pneumoniae Antigen (M - Final Assessment & Plan Assessment/Plan (1) Anemia: PLAN: Anemia in the setting of fecal occult positive stools with a history of PE who was on Eliquis and now on heparin drip. He is getting transfused 2 units of packed red blood cells. I had a talk with his and the patient at the bedside and they would like to pursue all modalities regarding to find out why he may be losing blood from his GI tract. He will get an upper and lower endoscopy and possibly capsule endoscopy by as an outpatient. He was explained alternatives, risk, benefits including outstanding bleeding, infection, sepsis, perforation, need for treatment. 11 ASA of 3. Charges/Coding Visit Charges Inpatient E&M: 53648 Init Hosp L2
[2021-05-01] MEDS: Metoclopramide 10 MG/2 ML Vial 5 MG IV ×2 (18:21→23:18)
[2021-05-01] MEDS: Atorvastatin Calcium 40 MG Tablet PO (20:17)
[2021-05-01] MEDS: Mirtazapine 15 MG Tablet 7.5 MG PO (20:17)
[2021-05-01] MEDS: Menthol/Lanolin/Calamine/Znox 113 GM Tube 1 APPLIC TOPICAL (20:18)
[2021-05-01] MEDS: Electrolyte Solution/Peg's 4000 ML PO (20:18)
[2021-05-01 20:44] LABS: Hematocrit 27.4 % (40-54); Hemoglobin 8.9 g/dL (13.0-16.5)
[2021-05-01 22:36] LABS: Bedside Glucose 163 mg/dL (74-106)
[2021-05-02] VITALS (37 sets, daily range): BP systolic 87–140; BP diastolic 42–82; PULSE 67–104; RESP 20–32; TEMP 36.3–37.5; O2SAT 84–97; BMI 28.8
[2021-05-02 05:00] LABS: Absolute Lymphocyte Count 0.91 X10^3/uL (0.83-4.51); Absolute Neutrophil Count 5.8 X10^3/uL (2.0-7.7); Basophil# 0.01 X10^3/uL; Basophil% 0.1 % (0-1); Eosinophil# 0.16 X10^3/uL; Eosinophils% 2.2 % (0-5); Hematocrit 28.6 % (40-54); Hemoglobin 9.4 g/dL (13.0-16.5); Lymphocyte # 0.91 X10^3/ul (0.83-4.51); Lymphocyte % 12.3 % (19-41); Mean Corp Hgb Conc 32.9 g/dL (32-36); Mean Corpuscular Hgb 26.6 pg (27.0-32.0); Mean Corpuscular Volume 80.8 fL (80-94); Mean Platelet Vol. 9.7 fl (6.2-12.0); Monocyte# 0.45 X10^3/uL; Monocyte% 6.1 % (0-10); NRBC Flagged by Analyzer 0 % (0-5); Neutrophil # 5.77 X10^3/uL (2.7-7.7); Neutrophil % 77.9 % (47-70); Platelet Count 404 K/mm3 (150-450); RBC Distribution Width CV 16.9 % (11.6-14.6); RBC Distribution Width SD 49.6 fl (35.1-43.9); Red Blood Count 3.54 M/mm3 (4.6-6.2); White Blood Count 7.4 K/mm3 (4.4-11.0)
[2021-05-02 05:15] LABS: Anion Gap 7 (5-15); BUN 21 mg/dL (7-18); BUN/Creat Ratio 14.9 RATIO (10-20); Calcium,Total 7.4 mg/dL (8.5-10.1); Chloride 117 mmol/L (98-107); Creatinine, Serum 1.41 mg/dL (0.70-1.30); EST Glomerular Filtration Rate 53 mL/min (>60); Est Glom Filt Rate - Afr Amer 64 mL/min (>60); Estimated Creatinine Clearance 51.18 ml/min; Glucose 58 mg/dL (74-106); Potassium 3.8 mmol/L (3.5-5.1); Sodium Level 145 mmol/L (136-145)
--- NOTE | 2021-05-02 06:13 | PN.CC_ITS ---
Assessment & Plan Assessment/Plan (1) Acute on chronic respiratory failure with hypoxemia: PLAN: RECOMMENDATIONS: 1. Wean supplemental oxygen to maintain saturations at or above 90%. 2. Continue antimicrobials per ID recommendations. 3. Proceed with IVC filter placement. 4. Tentative plans for upper and lower endoscopy today. 5. Continue to monitor H&H daily and transfuse if hemoglobin drops below 7 g/dL. Continue PPI therapy as ordered. 6. Encourage incentive spirometer use while in bed and mobilize patient as tolerated. IMPRESSIONS: 1. Acute on chronic hypoxemic respiratory failure The patient initially presented to the ED with increasing oxygen demand while in the transitional care unit. He was documented for a short period of time to require a nonrebreather. His chest imaging did reveal progressive infiltrates, most pronounced throughout the left hemithorax. The patient does have a history of microaspiration, raising the concern that this could represent an aspiration pneumonia. At this time, I agree with continuing empiric antimicrobials. Agree with further speech therapy evaluation with MBSS. Continue to wean supplemental oxygen to maintain saturations at or above 90%. Continue to encourage incentive spirometer use and mobilize patient as tolerated. 2. Anemia During the patient's last hospitalization, he was identified as having pulmonary emboli and was subsequently started on Eliquis. His hemoglobin has dropped to a per of 7.1 g/dL. Stool for occult blood was positive. Therefore, the patient was transfused packed red blood cells and continued on PPI therapy. GI evaluated the patient and has plans to proceed with endoscopic evaluation. Nevertheless, in light of the patient's blood loss anemia and inability to be systemically anticoagulated, a lower extremity Doppler study was obtained which did reveal evidence of a left-sided DVT. Therefore, we will reach out to general surgery in hopes that a IVC filter can be placed. 3. History of rheumatoid arthritis/history of non-Hodgkin's lymphoma/heart failure with preserved ejection fraction/chronic tobacco dependency Complicates care, management, recovery and prognosis. The patient does receive rituximab on an outpatient basis for his rheumatoid arthritis, per report. This note was generated with [employer] software. It may contain incorrect words, spelling, and punctuation that were not noted in checking the note before signing. Subjective Subjective The patient was seen and examined at the bedside this morning. Events from the last 24 hours have been reviewed. The patient is currently afebrile, hemodynamically stable and maintaining appropriate oxygen saturations on 2 L/min via nasal cannula. The patient is currently documented to be overall net +7.4 L for the hospitalization. No overnight issues were identified by the nursing staff. In total, the patient was transfused 2 units packed red blood cells yesterday. Hemoglobin is improved to 9.4 g/dL this morning. He is no longer on systemic anticoagulation. Creatinine is stable at 1.4. There are tentative plans for both upper and lower endoscopy later this morning. In light of the patient's blood loss anemia while being systemically anticoagulated and due to the fact that a lower extremity DVT was identified yesterday, I did call and speak briefly with Dr. Huerta, who was agreeable to placing an IVC filter. Objective Data Objective Data The patient's most recent lab work, culture data and imaging studies have all been personally reviewed. Surface echocardiogram dated March 2021 demonstrated stage I diastolic dysfunction and mild aortic stenosis. Strep and urine Legionella antigens were negative. Blood cultures have not demonstrated any growth to date. MRSA screen was negative. Lower extremity Doppler study revealed DVT in the left lower extremity. Vital Signs: Vital Signs Temp Pulse Resp BP Pulse Ox 97.8 F 91 28 H 114/58 L 92 05/02/21 04:00 05/02/21 06:00 05/02/21 06:00 05/02/21 06:00 05/02/21 06:00 Oxygen Flow Rate (L/min) 2 Oxygen Delivery Method Nasal Cannula Weight: 93.213 kg Body Mass Index (BMI) 27.9 Intake & Output: Intake and Output for Last 24 Hours 04/30/21 05/01/21 05/02/21 23:59 23:59 23:59 Intake Total 1055.73 / 1055.73 3657.87 / 3657.87 2088. / 2088. Output Total 250 / 250 200 / 200 Balance 805.73 / 805.73 3457.87 / 3457.87 2088. / Medical Nutrition Assessment Dietitian: Malnutrition Criteria Met Start: 04/30/21 11:49 Freq: Status: Active Protocol: Document 04/30/21 11:49 YUKI (Rec: 04/30/21 11:49 SLA [id number]) Nutrition Malnutrition Evidence of Malnutrition Exists Yes Malnutrition (severe): Acute Illness/Injury Evidenced By Suboptimal Energy Intake ( Severe),Weight Loss (Severe), Physical Changes (Moderate) Clinical Problem Acute Disease or Injury Related Malnutrition Etiology related to COVID in Feb 2021 and subsequent illnesses requiring hospitalizations since making it difficult to consume adequate nutrition to meet est nutritional needs Signs/Symptoms as evidenced by 9.2% wt loss and <50% po intake at most meals x past ~ 6 wks and also sunken orbital/temporal areas, fat/muscle loss of scapula, clavicle, triceps, legs Status Active Problem Recommendation Dietitian Recommendations/Changes When medically able, rec liberal Regular diet - consistency per [employer]ER - d/t s/s of malnutrition When medically able rec 4 oz chocolate ensure enlive 4x/day w/ medpass for increased nutrition if consumed (Pt will NOT drink glucerna shake). Lab / Micro Data Result Diagrams: 05/02/21 04:50 05/02/21 04:50 Labs: Laboratory Results - last 24 hr 04/30/21 11:00: Crossmatch See Detail 04/30/21 11:00: Crossmatch See Detail 05/01/21 05:17: WBC 7.0, RBC 2.82 L, Hgb 7.1 L, Hct 22.7 L, MCV 80.5, MCH 25.2 L , MCHC 31.3 L, RDW Std Deviation 50.3 H, RDW Coeff of Rafael 17.3 H, Plt Count 389, MPV 10.1, Immature Gran % (Auto) 1.600 H, Neut % (Auto) 81.8 H, Lymph % (Auto) 8.0 L, [place] % (Auto) 6.6, Eos % (Auto) 1.9, Baso % (Auto) 0.1, Absolute Neuts (auto) 5.7, Absolute Lymphs (auto) 0.56 L, Nucleated RBC % 0, Anisocytosis 1+, [place] Cells RARE 05/01/21 05:17: Sodium 145, Potassium 3.8, Chloride 118 H, Carbon Dioxide 22.0, Anion Gap 5, BUN 25 H, Creatinine 1.50 H, Estim Creat Clear Calc 48.11, Est GFR (MDRD) Af Amer 59 L, Est GFR (MDRD) Non-Af 49 L, BUN/Creatinine Ratio 16.7, Glucose 57 L, Calcium 8.0 L 05/01/21 05:17: Retic Count 1.72 H, Immature Retic Fraction 33.10 H, Retic Hgb Equivalent 25.1 L 05/01/21 05:17: Iron 15 L, TIBC 152 L, Iron Saturation 9.9 L, Ferritin 544 H 05/01/21 06:20: POC Glucose 56 L 05/01/21 06:55: POC Glucose 125 H 05/01/21 09:44: Vitamin B12 1806 H 05/01/21 11:15: Lactic Acid 3.1 H* 05/01/21 11:42: POC Glucose 125 H 05/01/21 13:35: APTT 72.5 H 05/01/21 13:35: Hgb 7.3 L, Hct 22.8 L 05/01/21 15:45: Lactic Acid 1.1 05/01/21 15:46: POC Glucose 163 H 05/01/21 20:35: Hgb 8.9 L, Hct 27.4 L 05/01/21 22:25: POC Glucose 163 H 05/02/21 04:50: WBC 7.4, RBC 3.54 L, Hgb 9.4 L, Hct 28.6 L, MCV 80.8, MCH 26.6 L , MCHC 32.9 D, RDW Std Deviation 49.6 H, RDW Coeff of Rafael 16.9 H, Plt Count 404, MPV 9.7, Immature Gran % (Auto) 1.400 H, Neut % (Auto) 77.9 H, Lymph % (Auto) 12.3 L, [place] % (Auto) 6.1, Eos % (Auto) 2.2, Baso % (Auto) 0.1, Absolute Neuts (auto) 5.8, Absolute Lymphs (auto) 0.91, Nucleated RBC % 0 05/02/21 04:50: Sodium 145, Potassium 3.8, Chloride 117 H, Carbon Dioxide 21.0, Anion Gap 7, BUN 21 H, Creatinine 1.41 H, Estim Creat Clear Calc 51.18, Est GFR (MDRD) Af Amer 64, Est GFR (MDRD) Non-Af 53 L, BUN/Creatinine Ratio 14.9, Glu cose 58 L, Calcium 7.4 L Micro: Microbiology 05/01/21 11:00 Stool Stool Occult Blood ([facility]) - Final Occult Blood Positive 04/29/21 11:30 Blood Culture (Wb) - Arm Right Blood Culture - Preliminary No growth in 48 hours. 04/29/21 11:03 Blood Culture (Wb) - Anticubital Left Blood Culture - Preliminary No growth in 48 hours. 05/01/21 06:30 Urine, Clean Catch Legionella Antigen - Final 05/01/21 06:30 Urine, Clean Catch Streptococcus pneumoniae Antigen (M - Final 04/29/21 11:30 Nasal Secretion SARS-CoV-2 Antigen (Rapid) - Final Radiography Diagnostic Testing: Radiology Impression Venous Doppler Study 05/01/21 15:21 Interpretation Summary There is no evidence of right lower extremity deep vein thrombosis. Acute deep venous thrombosis left common femoral and posterior tibial veins Patent, compressible bilateral great saphenous veins Ordering Physician: Jordan Ortiz Referring Physician: Donna Will M.D. Performed By: Brittani العلي RVT Physical Exam Const alert and no apparent distress Constitutional Narrative: Resting comfortably in bed. General Appearance: cooperative HEENT normocephalic, head/scalp atraumatic and moist oral mucous membranes Eyes PERRL and EOMs intact bilaterally Neck supple General: trachea midline Chest inspection of chest normal Resp Resp Narrative: Limited inspiratory effort. Auscultation: diminished lung sounds Cardio regular rate and regular rhythm GI normal to inspection, nondistended, normoactive bowel sounds Extremity General Extremity: edema bilateral lower extremity; Negative for clubbing Skin no rashes or lesions noted Neuro CN's II-XII intact bilaterally and no focal motor deficits Psych Mood & Affect: flat affect Charges/Coding Visit Charges Inpatient E&M: 06703 Subs Hosp L3
[2021-05-02] MEDS: Metoclopramide 10 MG/2 ML Vial 5 MG IV ×4 (06:17→23:55)
[2021-05-02] MEDS: 0.9% Saline Lock 10 ML Syringe IV ×4 (06:17→23:55)
[2021-05-02] MEDS: Menthol/Lanolin/Calamine/Znox 113 GM Tube 1 APPLIC TOPICAL ×3 (06:17→21:08)
--- NOTE | 2021-05-02 07:10 | PN.HOSP_ITS ---
Subjective Subjective Patient was transferred to the intensive care unit a day prior after developing low blood pressure. Sepsis protocol was initiated. Patient was later found to have active GI bleed. He was on heparin this was discontinued started on Protonix drip with consultation placed to GI. Plan is for patient to undergo both upper and lower endoscopy. Bilateral venous duplex obtained demonstrated DVT in the left lower extremity patient is scheduled to undergo IVC filter placement Objective Data Objective Data Vital Signs: Vital Signs Temp Pulse Resp BP Pulse Ox 97.8 F 67 31 H 123/57 H 91 05/02/21 04:00 05/02/21 07:00 05/02/21 07:00 05/02/21 07:00 05/02/21 07:00 Oxygen Flow Rate (L/min) 2 Oxygen Delivery Method Nasal Cannula Weight: 93.213 kg Body Mass Index (BMI) 27.9 Intake & Output: Intake and Output for Last 24 Hours 04/30/21 05/01/21 05/02/21 23:59 23:59 23:59 Intake Total 1055.73 / 1055.73 3657.87 / 3657.87 2139.67 / 2139.67 Output Total 250 / 250 200 / 200 Balance 805.73 / 805.73 3457.87 / 3457.87 2139.67 / 2139.67 Medical Nutrition Assessment Dietitian: Malnutrition Criteria Met Start: 04/30/21 11:49 Freq: Status: Active Protocol: Document 04/30/21 11:49 YUKI (Rec: 04/30/21 11:49 SLA [id number]) Nutrition Malnutrition Evidence of Malnutrition Exists Yes Malnutrition (severe): Acute Illness/Injury Evidenced By Suboptimal Energy Intake ( Severe),Weight Loss (Severe), Physical Changes (Moderate) Clinical Problem Acute Disease or Injury Related Malnutrition Etiology related to COVID in Feb 2021 and subsequent illnesses requiring hospitalizations since making it difficult to consume adequate nutrition to meet est nutritional needs Signs/Symptoms as evidenced by 9.2% wt loss and <50% po intake at most meals x past ~ 6 wks and also sunken orbital/temporal areas, fat/muscle loss of scapula, clavicle, triceps, legs Status Active Problem Recommendation Dietitian Recommendations/Changes When medically able, rec liberal Regular diet - consistency per SQL SERVER DBA DEVELOPER - d/t s/s of malnutrition When medically able rec 4 oz chocolate ensure enlive 4x/day w/ medpass for increased nutrition if consumed (Pt will NOT drink glucerna shake). Lab / Micro Data Result Diagrams: 05/02/21 04:50 05/02/21 04:50 Labs: Laboratory Results - last 24 hr 04/30/21 11:00: Crossmatch See Detail 04/30/21 11:00: Crossmatch See Detail 05/01/21 05:17: Retic Count 1.72 H, Immature Retic Fraction 33.10 H, Retic Hgb Equivalent 25.1 L 05/01/21 05:17: Iron 15 L, TIBC 152 L, Iron Saturation 9.9 L, Ferritin 544 H 05/01/21 09:44: Vitamin B12 1806 H 05/01/21 11:15: Lactic Acid 3.1 H* 05/01/21 11:42: POC Glucose 125 H 05/01/21 13:35: APTT 72.5 H 05/01/21 13:35: Hgb 7.3 L, Hct 22.8 L 05/01/21 15:45: Lactic Acid 1.1 05/01/21 15:46: POC Glucose 163 H 05/01/21 20:35: Hgb 8.9 L, Hct 27.4 L 05/01/21 22:25: POC Glucose 163 H 05/02/21 04:50: WBC 7.4, RBC 3.54 L, Hgb 9.4 L, Hct 28.6 L, MCV 80.8, MCH 26.6 L , MCHC 32.9 D, RDW Std Deviation 49.6 H, RDW Coeff of Rafael 16.9 H, Plt Count 404, MPV 9.7, Immature Gran % (Auto) 1.400 H, Neut % (Auto) 77.9 H, Lymph % (Auto) 12.3 L, [place] % (Auto) 6.1, Eos % (Auto) 2.2, Baso % (Auto) 0.1, Absolute Neuts (auto) 5.8, Absolute Lymphs (auto) 0.91, Nucleated RBC % 0 05/02/21 04:50: Sodium 145, Potassium 3.8, Chloride 117 H, Carbon Dioxide 21.0, Anion Gap 7, BUN 21 H, Creatinine 1.41 H, Estim Creat Clear Calc 51.18, Est GFR (MDRD) Af Amer 64, Est GFR (MDRD) Non-Af 53 L, BUN/Creatinine Ratio 14.9, Glucose 58 L, Calcium 7.4 L Micro: Microbiology 05/01/21 11:00 Stool Stool Occult Blood (FOREST) - Final Occult Blood Positive 04/29/21 11:30 Blood Culture (Wb) - Arm Right Blood Culture - Preliminary No growth in 48 hours. 04/29/21 11:03 Blood Culture (Wb) - Anticubital Left Blood Culture - Preliminary No growth in 48 hours. 05/01/21 06:30 Urine, Clean Catch Legionella Antigen - Final 05/01/21 06:30 Urine, Clean Catch Streptococcus pneumoniae Antigen (M - Final 04/29/21 11:30 Nasal Secretion SARS-CoV-2 Antigen (Rapid) - Final Radiography Diagnostic Testing: Radiology Impression Venous Doppler Study 05/01/21 15:21 Interpretation Summary There is no evidence of right lower extremity deep vein thrombosis. Acute deep venous thrombosis left common femoral and posterior tibial veins Patent, compressible bilateral great saphenous veins Ordering Physician: Jordan Ortiz Referring Physician: Donna Will M.D. Performed By: Brittani العلي RVT Physical Exam Narrative GENERAL: Frail looking HEENT: Atraumatic; EYES; Anicteric, Normal Conjunctiva NECK; supple, normal thyroid, RESPIRATORY: Diminished to auscultation CARDIOVASCULAR: Regular S1 S2, GI: soft, normoactive bowel sounds, : No Renal angle tenderness; EXTREMITIES: No edema, no clubbing, MUSCULOSKELETAL: no muscle wasting NEURO: Awake; no lateralizing signs. SKIN: No Rash PSYCH; Flat affect Assessment & Plan Assessment/Plan (1) Dyspnea: (2) Pleural effusion: PLAN: Patient is a 70-year-old gentleman with history of recent COVID-19 pneumonia later complicated by bilateral pulmonary embolism presented to the emergency department with progressive shortness of breath. An assessment of acute on chronic hypoxic respiratory failure made admitted to regular nursing floor for further management 1. Acute on chronic hypoxic respiratory. ?Multifactorial including recent bilateral pulmonary embolism, recent Covid pneumonia with suspected residual pulmonary fibrosis as well as possible aspiration pneumonitis. Patient was started on broad-spectrum antibiotic therapy with vancomycin and Zosyn with consultation placed to pulmonary and ID. Case was discussed with Dr. Singleton with pulmonary medicine plan is for patient to be kept n.p.o. for speech and swallow eval 2. Suspected sepsis ?05/01/2021 patient has source of infection ~Possible aspiration pneumonia currently hypotensive. Sepsis work-up initiated with lactic acid levels ordered. Patient already on broad-spectrum antibiotic therapy. Cultures were obtained on admission however with patient continued to experience high-grade fever repeat cultures ordered. Patient has already been seen by ID. With patient being hypotensive patient was resuscitated with IV fluids. Plan is to transfer patient to the intensive care unit -05/02/2021. Patient resuscitated with IV fluid did continue with broad-spectrum antibiotic therapy repeat cultures sent 3. Recent bilateral pulmonary embolism COVID induced coagulopathy ?Patient is on Eliquis did continue -05/01/2021; Eliquis held upon suggestion by pulmonary medicine currently on heparin -05/02/2021; bilateral venous duplex obtained today prior did demonstrate Acute d eep venous thrombosis left common femoral and posterior tibial veins. Patient was on heparin discontinued in view of associated GI bleed 4. Anemia Secondary to combination of acute GI bleed as well as anemia of chronic disorder - Secondary to chronic disorder monitoring H&H and transfuse if patient becomes symptomatic or hemoglobin falls below 7.Patient hemoglobin as of 04/30/2021 7.1 repeat H&H ordered for a.m. -05/01/2021. With patient deemed to be symptomatic and order was given for patient to be transfused with 1 unit PRBC in addition iron studies B12 ferritin level and reticulocyte count ordered prior to initiation of transfusion. Also did order stool for guaiac and if positive will consider consultation with GI for possible endoscopic evaluation ?05/02/2021. Patient did develop active GI bleed heparin was discontinued started on Protonix drip consult placed to GI plan is for patient to undergo both upper and lower endoscopy on 05/02/[address] Galeana 5. Diabetes mellitus type II -patient's oral hypoglycemics held. Placed on long acting insulin, Accu-Cheks a.c. and at bedtime and covered with sliding scale insulin 6. Rheumatoid arthritis Patient is on rituximab as outpatient. 7. Non Hodgkin's lymphoma ?Apparently in remission 8. Coronary artery disease ?With previous PCI of an LAD RCA and mid circumflex lesions 9. Dyslipidemia ?Per history currently not on any statin therapy 10. Tobacco dependence - Counseled on cessation, offered nicotine patch for tobacco cravings7 11. Physical deconditioning - Requested for PT OT eval and social work faculty member to assist with discharge planning 12. Hypertension - Blood pressure controlled, home medications continued with dose adjustment as needed -05/01/2021 patient antihypertensives held in view of his relative low blood pressure 13. DVT prophylaxis - on on heparin - 05/02/2021 Heparin on hold in view of active GI bleed 14. Acute encephalopathy ?Possibly related to #1 however MRI of the brain ordered to rule out a neurological etiology - 15. Severe malnutrition ?As evidenced by suboptimal energy intake severe weight loss and this is related to patient chronic pancreatitis as well as alcoholism. Recommendation as noted above by dietitian 16. Suspected depression ?Patient started on Lexapro Charges/Coding Visit Charges Inpatient E&M: 85224 Subs Hosp L3
[2021-05-02] MEDS: Dextrose 10%-Water 250 ML IV.SOLN. 125 ML IV (07:36)
--- NOTE | 2021-05-02 08:07 | PCM.CONS.GEN ---
Assessment & Plan Assessment/Plan (1) Acute deep vein thrombosis (DVT): QUALIFIERS: Affected thrombotic vein of extremity: tibial DVT location: lower extremity Laterality: left Qualified Code(s): I82.442 - Acute embolism and thrombosis of left tibial vein PLAN: I have been consulted in conjunction with Dr. Huerta. He will independently evaluate this patient. Patient had a bilateral lower extremity duplex completed on 05/01/21 which demonstrated left lower extremity DVT of the left femoral and posterior tibial region. Due to the patient's new onset of anemia and recent addition of Eliquis, adding anticoagulation to the patient's current regimen is contraindicated at this time therefore recommending placing an IVC filter. Dr. Huerta will plan to perform an inferior vena cava filter placement. Procedure details, risks and benefits have been explained to the patient. I have also discussed the procedure with the patient's via phone. Patient has had the opportunity to ask and have questions answered. Patient verbally understands and agrees with the plan. This is a temporary placement of the filter and will need to be removed once patient is able to safely resume anticoagulation. Thank you for allowing us to participate in this patient's care. HPI Consult Data Date of Consult: 05/02/21 HPI Narrative HPI Narrative: SAL ALONZO, is a 70 M who presents to the ED from TCU due to worsening shortness of breath. Patient is a poor historian. Most of his history was obtained from his and patient's chart. Patient was hospitalized with COVTN at the end of February 2021. He was discharged and readmitted 3 times for hypoxia and lethargy. He was discharged to TCU on 04/27/21. During patient's second hospitalization, he was found to have multiple pulmonary embolisms on CT scan of the chest. He was placed on anticoagulation at that time. He had a recent CTA on 04/29 which demonstrated no pulmonary embolism. He was found to be hypoxic, pale with chills and rigors on 04/29. Lab work was notable for anemia. Anticoagulation was stopped. he had a DVT study on 05/01 which was notable for left lower extremity DVT. Patient was on heparin, which is currently being held for an upper/lower scope with Dr. Galeana for today. We were consulted for an inferior vena cava filter placement. Patient denies having a previous filter placed. Patient denies previous central line placements. He denies pacemaker/defibrillator. [facility] Medical History Allergic rhinitis Arthritis Asthma Atherosclerosis of coronary artery of [place] heart without angina pectoris Bronchitis Cancer Chronic bronchitis Colon polyp COPD (chronic obstructive pulmonary disease) COVID-19 COVID-19 in immunocompromised patient Diabetes Gastritis History of basal cell carcinoma History of diabetes mellitus, type II History of non-Hodgkin's lymphoma History of pilonidal cyst Hyperlipidemia Hypertension Iron deficiency anemia Iron deficiency anemia Lab test negative for COVID-19 virus Nicotine dependence, cigarettes, uncomplicated Non-Hodgkin lymphoma Obesity Pneumonia Pneumonia due to COVID-19 virus Positive colorectal cancer screening using Cologuard test RA (rheumatoid arthritis) Tobacco use URI (upper respiratory infection) 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 complications Home Medications aspirin 81 mg tablet,delayed release 81 mg PO DAILY 09/28/19 [History Last Taken Unknown] cholecalciferol (vitamin D3) 25 mcg (1,000 unit) capsule 25 mcg PO DAILY 07/17/20 [History Last Taken 04/29/21] nitroglycerin 0.4 mg sublingual tablet 0.4 mg SUBLINGUAL Q5M PRN #30 tab 09/25/20 [Rx Last Taken Unknown] cyanocobalamin (vitamin B-12) 1,000 mcg capsule 1,000 mcg PO DAILY 01/29/21 [History Last Taken 04/29/21] albuterol sulfate 2 puff INHALATION Q6H PRN #6.7 g 04/11/21 [Rx Last Taken Unknown] atorvastatin 40 mg PO QHS 04/21/21 [History Last Taken 04/28/21] amoxicillin-pot clavulanate 875 mg PO BIDCM 04/26/21 [History Last Taken Unknown] apixaban [Eliquis] 10 mg PO BID 04/26/21 [History Last Taken 04/29/21] ferrous sulfate 325 mg PO BID 04/26/21 [History Last Taken 04/29/21] glimepiride 2 mg PO BID 04/26/21 [History Last Taken Unknown] metformin 500 mg PO BID 04/26/21 [History Last Taken 04/29/21] metoprolol tartrate 25 mg PO BID 04/26/21 [History Last Taken 04/29/21] nut.tx.gluc intol,lf,soy-fiber [Glucerna 1.2 Anthony] 120 ml PO 4X/DAY 04/26/21 [History Last Taken Unknown] mirtazapine [Remeron] 7.5 mg PO QHS 04/29/21 [History Last Taken 04/28/21] piperacillin-tazobactam [Zosyn] 3.375 g IV Q8H 04/29/21 [History Last Taken 04/29/21] polyethylene glycol 3350 [Miralax] 17 g PO DAILY 04/29/21 [History Last Taken 04/29/21] senna-docusate sodium 1 tab PO DAILY 04/29/21 [History Last Taken 04/29/21] vancomycin in 0.9 % sodium chl 125 mg IV Q12H 04/29/21 [History Last Taken 04/28/21] Allergy/AdvReac Type Severity Reaction Status Date / Time famotidine [From Pepcid] AdvReac Intermediate Diarrhea Verified 04/29/21 10:45 levofloxacin [From Levaquin] AdvReac Intermediate dizziness Verified 04/29/21 10:45 Family History Father Arthritis Bleeding disorder Hypertension Kidney disease Cancer Skin Anemia blood clots Emphysema lung Mother Colon cancer Cancer Lung Cancer Diabetes Brother Thyroid disorder Surgical History History of coronary artery stent placement (~10/22/13) History of excision of pilonidal cyst History of thymectomy Hx of lymph node excision Social History household members: spouse Smoking Status: Former smoker second hand exposure: Yes quit status: considering quitting alcohol intake: current alcohol intake frequency: holidays/special occasions only substance use type: does not use caffeine: Yes Type: coffee Number of servings: 3 what type of physical activity do you participate in: none frequency: does not exercise seatbelt use: always ROS Constitutional Constitutional: Reports systems reviewed and no addt'l complaints, except as documented Eyes Eyes: Reports systems reviewed and no addt'l complaints, except as documented ENT HEENT: Reports systems reviewed and no addt'l complaints, except as documented Cardiovascular Cardiovascular: Reports systems reviewed and no addt'l complaints, except as documented Respiratory/Chest Respiratory/Chest: Reports systems reviewed and no addt'l complaints, except as documented Gastrointestinal Gastrointestinal: Reports systems reviewed and no addt'l complaints, except as documented Genitourinary Genitourinary: Reports systems reviewed and no addt'l complaints, except as documented Musculoskeletal Musculoskeletal: Reports systems reviewed and no addt'l complaints, except as documented Integumentary Integumentary: Reports systems reviewed and no addt'l complaints, except as documented Neurologic Neurologic: Reports systems reviewed and no addt'l complaints, except as documented Psychiatric Psychiatric: Reports systems reviewed and no addt'l complaints, except as documented Endocrine Endocrinology: Reports systems reviewed and no addt'l complaints, except as documented Hematologic/Lymphatic Hematologic/Lymphatic: Reports systems reviewed and no addt'l complaints, except as documented Allergic/Immunologic Allergic/Immunologic: Reports systems reviewed and no addt'l complaints, except as documented Physical Exam Const alert and no apparent distress General Appearance: cooperative and lethargic HEENT normocephalic Eyes PERRL Neck General: normal visual inspection Lymph Lymphatic: no lymphadenopathy noted Resp normal respiratory effort Effort and Inspection: able to speak in complete sentences Auscultation: diminished lung sounds bilateral (Clear bilateral upper lungs) lower Cardio regular rate and regular rhythm GI normal to inspection, nondistended, normoactive bowel sounds Back/Spine no CVA tenderness Extremity General Extremity: edema bilateral lower extremity Skin Wounds: wounds noted other coccyx region Neuro no focal motor deficits and no sensory deficits noted Psych Appearance: appropriate Attitude: calm Mood & Affect: labile affect and flat affect Medical Records Data Medical Nutrition Assessment Dietitian: Malnutrition Criteria Met Start: 04/30/21 11:49 Freq: Status: Active Protocol: Document 04/30/21 11:49 YUKI (Rec: 04/30/21 11:49 [facility] [id number]) Nutrition Malnutrition Evidence of Malnutrition Exists Yes Malnutrition (severe): Acute Illness/Injury Evidenced By Suboptimal Energy Intake ( Severe),Weight Loss (Severe), Physical Changes (Moderate) Clinical Problem Acute Disease or Injury Related Malnutrition Etiology related to COVID in Feb 2021 and subsequent illnesses requiring hospitalizations since making it difficult to consume adequate nutrition to meet est nutritional needs Signs/Symptoms as evidenced by 9.2% wt loss and <50% po intake at most meals x past ~ 6 wks and also sunken orbital/temporal areas, fat/muscle loss of scapula, clavicle, triceps, legs Status Active Problem Recommendation Dietitian Recommendations/Changes When medically able, rec liberal Regular diet - consistency per COLLEGE PRESIDENT - d/t s/s of malnutrition When medically able rec 4 oz chocolate ensure enlive 4x/day w/ medpass for increased nutrition if consumed (Pt will NOT drink glucerna shake). Lab / Micro Data Result Diagrams: 05/02/21 04:50 05/02/21 04:50 Labs: Laboratory Results - last 24 hr 04/30/21 11:00: Crossmatch See Detail 04/30/21 11:00: Crossmatch See Detail 05/01/21 05:17: Retic Count 1.72 H, Immature Retic Fraction 33.10 H, Retic Hgb Equivalent 25.1 L 05/01/21 05:17: Iron 15 L, TIBC 152 L, Iron Saturation 9.9 L, Ferritin 544 H 05/01/21 09:44: Vitamin B12 1806 H 05/01/21 11:15: Lactic Acid 3.1 H* 05/01/21 11:42: POC Glucose 125 H 05/01/21 13:35: APTT 72.5 H 05/01/21 13:35: Hgb 7.3 L, Hct 22.8 L 05/01/21 15:45: Lactic Acid 1.1 05/01/21 15:46: POC Glucose 163 H 05/01/21 20:35: Hgb 8.9 L, Hct 27.4 L 05/01/21 22:25: POC Glucose 163 H 05/02/21 04:50: WBC 7.4, RBC 3.54 L, Hgb 9.4 L, Hct 28.6 L, MCV 80.8, MCH 26.6 L, MCHC 32.9 D, RDW Std Deviation 49.6 H, RDW Coeff of Rafael 16.9 H, Plt Count 404, MPV 9.7, Immature Gran % (Auto) 1.400 H, Neut % (Auto) 77.9 H, Lymph % (Auto) 12.3 L, [place] % (Auto) 6.1, Eos % (Auto) 2.2, Baso % (Auto) 0.1, Absolute Neuts (auto) 5.8, Absolute Lymphs (auto) 0.91, Nucleated RBC % 0 05/02/21 04:50: Sodium 145, Potassium 3.8, Chloride 117 H, Carbon Dioxide 21.0, Anion Gap 7, BUN 21 H, Creatinine 1.41 H, Estim Creat Clear Calc 51.18, Est GFR (MDRD) Af Amer 64, Est GFR (MDRD) Non-Af 53 L, BUN/Creatinine Ratio 14.9, Glucose 58 L, Calcium 7.4 L Micro: Microbiology 05/01/21 11:00 Stool Stool Occult Blood (FOREST) - Final Occult Blood Positive 04/29/21 11:30 Blood Culture (Wb) - Arm Right Blood Culture - Preliminary No growth in 48 hours. 04/29/21 11:03 Blood Culture (Wb) - Anticubital Left Blood Culture - Preliminary No growth in 48 hours. 05/01/21 06:30 Urine, Clean Catch Legionella Antigen - Final 05/01/21 06:30 Urine, Clean Catch Streptococcus pneumoniae Antigen (M - Final Radiology Impression Venous Doppler Study 05/01/21 15:21 Interpretation Summary There is no evidence of right lower extremity deep vein thrombosis. Acute deep venous thrombosis left common femoral and posterior tibial veins Patent, compressible bilateral great saphenous veins Ordering Physician: Jordan Ortiz Referring Physician: Donna Will M.D. Performed By: Brittani العلي RVT Charges/Coding Visit Charges Office Visits / Consults: [id number] IP Consult L3
[2021-05-02 08:21] LABS: Bedside Glucose 105 mg/dL (74-106)
--- NOTE | 2021-05-02 09:21 | CASEMGMT ---
Social Work SW updated Rosanna in TCU that pt is not ready for discharge today. Pt will need precert prior to discharge back to TCU. JOEY Zuñiga
[2021-05-02 10:16] LABS: Bedside Glucose 76 mg/dL (74-106)
--- NOTE | 2021-05-02 10:35 | NURSING ---
off floor to slab tripper at this time
--- NOTE | 2021-05-02 11:25 | OP.PCM_ITS ---
Problems Associated Problem List Diagnoses (1) Acute deep vein thrombosis (DVT): Report of Operation Date of Procedure: 05/02/21 Pre-Operative Diagnosis: Left lower extremity deep venous thrombosis with contraindication to anticoagulation with gastrointestinal bleed Post-Operative Diagnosis: Same Surgery/Procedure Performed:: Inferior venacavogram with transright jugular inferior vena cava filter placement. Mcintosh filter. Description of Surgical Findings:: Timeout and informed consent was obtained. 70-year-old gent was taken to special procedures lab placed on the table. He wi ll already seem to be somewhat sedated so no additional medications were given. The right neck was sterilely prepped and draped. Ultrasound was used to identify the right internal jugular vein. 10 cc of 2% lidocaine was instilled in the ultrasound guidance. Then a micropuncture needle was inserted micropuncture wire inserted 6 Wallisian short sheath dilator exchanged out. An 035 angled Glidewire was used to place a 5 Wallisian flush catheter into the distal infrarenal vena cava. Using 15 cc/s for 15 cc of Isovue contrast and inferior venacavogram was obtained. The vena cava was of normal diameter. There was no thrombus within. The level of the renal veins were identified. Subsequently the 5 Wallisian sheath was removed as was the flush catheter dilatation with a 9 Wallisian catheter was performed the 8 Wallisian delivery mechanism was placed a jugular approach Mcintosh filter was placed he was positioned so the apex would be at the L1-2 interface at the site of the entrance of the renal veins. The filter was deployed. The vena cava did very slight angle at this position and the filter appeared to mimic that exact angle. Good deployment no apparent complication the deployment mechanism was removed the sheath was removed gentle pressure was held for hemostasis. The patient tolerated procedure well no apparent complication blood loss was minimal. Inferior venacavogram demonstrates a widely patent inferior vena cava without thrombus. Positioning the renal veins identified. Subsequent nice placement of the Mcintosh filter. Specimens none. Drains none. Blood loss minimal. Wilberto Huerta M.D., F.A.C.S. Surgeon: Wilberto Huerta
--- NOTE | 2021-05-02 13:40 | PCM.PN.ID ---
Physical Exam Narrative Feeling better, no fever, breathing improved, IVC filter today Const alert and no apparent distress General Appearance: cooperative Resp clear to auscultation bilaterally Auscultation: wheezes Cardio regular rate and regular rhythm GI soft to palpation, non-tender and non-distended Skin no rashes or lesions noted ID ID: Route of nutrition/ use of supplements: [] Nutritional Intake: [] IV Site: [] Ball Catheter: [] Assessment & Plan Assessment/Plan (1) Dyspnea: PLAN: Cxs sent, on empiric zosyn. Recent covid, rhinovirus, CAP, and PEs. Has had covid vaccine x3. Pulm following. Possible aspiration. No fever last night, clinically improved. Day 4 of abx. Plan on 6-7 day course if cont to improve. Will follow
[2021-05-02 15:21] LABS: Bedside Glucose 64 mg/dL (74-106)
[2021-05-02] MEDS: Dextrose 10%-Water 250 ML 999 ML IV (15:40)
--- NOTE | 2021-05-02 15:41 | NURSING ---
patient off floor to endo
[2021-05-02 15:42] LABS: Bedside Glucose 45 mg/dL (74-106)
[2021-05-02 16:01] LABS: Bedside Glucose 101 mg/dL (74-106)
--- NOTE | 2021-05-02 17:20 | OP.COLON_ITS ---
Patient Name: Jaydon Quintana Procedure Date: 05/02/2021 4:50 PM Date of : 1950 Age: 70 Procedure: Colonoscopy Indications: Iron deficiency anemia Providers: Khai Galeana DO Medicines: See the Anesthesia note for documentation of the administered medications Patient Profile: This is a 70 year old male. Refer to note in patient chart for documentation of history and physical. Last Colonoscopy: more than 3 years ago. Complications: No immediate complications. Procedure: Pre-Anesthesia Assessment: - Prior to the procedure, a History and Physical was performed, and patient medications and allergies were reviewed. The patient is competent. The risks and benefits of the procedure and the sedation options and risks were discussed with the patient. All questions were answered and informed consent was obtained. Patient identification and proposed procedure were verified by the physician in the pre-procedure area. Mental Status Examination: alert and oriented. Airway Examination: normal oropharyngeal airway and neck mobility. Respiratory Examination: clear to auscultation. CV Examination: normal. Prophylactic Antibiotics: The patient does not require prophylactic antibiotics. Prior Anticoagulants: The patient has taken no previous anticoagulant or antiplatelet agents. ASA Grade Assessment: II - A patient with mild systemic disease. After reviewing the risks and benefits, the patient was deemed in satisfactory condition to undergo the procedure. The anesthesia plan was to use moderate sedation / analgesia (conscious sedation). Immediately prior to administration of medications, the patient was re-assessed for adequacy to receive sedatives. The heart rate, respiratory rate, oxygen saturations, blood pressure, adequacy of pulmonary ventilation, and response to care were monitored throughout the procedure. The physical status of the patient was re-assessed after the procedure. After I obtained informed consent, the scope was passed under direct vision. Throughout the procedure, the patient's blood pressure, pulse, and oxygen saturations were monitored continuously. The colonoscope was introduced through the anus and advanced to the cecum, identified by appendiceal orifice and ileocecal valve. The colonoscopy was performed without difficulty. The patient tolerated the procedure well. The quality of the bowel preparation was good. Moderate Sedation: Moderate (conscious) sedation was administered by the endoscopy nurse and supervised by the endoscopist. The patient's oxygen saturation, heart rate, blood pressure and response to care were monitored. Total physician intraservice time was 15 minutes. Scope In: 4:53:56 PM Scope Out: 5:08:33 PM Total Procedure Duration Time 0 hours 14 minutes 37 seconds Findings: The perianal and digital rectal examinations were normal. Three medium-sized localized angiodysplastic lesions with stigmata of recent bleeding were found in the ascending colon and in the cecum. Coagulation for hemostasis using argon plasma at 0.3 liters/minute and 20 campbell was successful. Estimated blood loss was minimal. An area of moderately congested mucosa was found in the entire colon. Impression: - Three recently bleeding colonic angiodysplastic lesions. Treated with argon plasma coagulation (APC). - Congested mucosa in the entire examined colon. 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 Recommendation: - Return patient to hospital [facility] for ongoing care. - Resume previous diet. - Continue present medications. - Repeat colonoscopy in 5 years for surveillance. Procedure Code(s): --- Professional --- 08688, Colonoscopy, flexible; with control of bleeding, any method 86944, 59, Moderate sedation services provided by the same physician or other qualified health child care specialist performing the diagnostic or therapeutic service that the sedation supports, requiring the presence of an independent trained observer to assist in the monitoring of the patient's level of consciousness and physiological status; initial 15 minutes of intraservice time, patient age 5 years or older CPT copyright 2017 [employer]. All rights reserved. The codes documented in this report are preliminary and upon c wpf developer review may be revised to meet current compliance requirements. Khai Galeana DO 05/02/2021 5:19:36 PM This report has been signed electronically. Number of Addenda: 1 Note Initiated On: 05/02/2021 4:50 PM Addendum Number: 1 Addendum Date: 11/21/2021 6:34:16 AM MAC was used as sedation for this procedure. Khai Galeana DO 11/21/2021 6:34:21 AM This report has been signed electronically.
--- NOTE | 2021-05-02 17:21 | OP.CCLET_ITS ---
11/21/2021 Donna Will [facility] [address] [place] [address] Re : Colonoscopy procedure for Jaydon Quintana Dear Dr. Will This procedure was performed on Sunday, May 02, 2021. My impressions and recommendations are as follows: Impressions : - Three recently bleeding colonic angiodysplastic lesions. Treated with argon plasma coagulation (APC). - Congested mucosa in the entire examined colon. 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 Recommendations : - Return patient to hospital [facility] for ongoing care. - Resume previous diet. - Continue present medications. - Repeat colonoscopy in 5 years for surveillance. My findings are described in the full procedure note, which is enclosed. If I can be of further assistance, please feel free to contact me at . Sincerely, Khai Friend, 05/02/2021 5:19:36 PM This report has been signed electronically.
--- NOTE | 2021-05-02 17:27 | OP.EGD_ITS ---
Patient Name: Jaydon Quintana Procedure Date: 05/02/2021 3:35 PM Date of : 1950 Age: 70 Procedure: Upper GI endoscopy Indications: Iron deficiency anemia Providers: Khai Galeana DO Medicines: See the Anesthesia note for documentation of the administered medications Patient Profile: This is a 70 year old male. Refer to note in patient chart for documentation of history and physical. Patient has symptoms. Complications: No immediate complications. Procedure: Pre-Anesthesia Assessment: - Prior to the procedure, a History and Physical was performed, and patient medications and allergies were reviewed. The patient is competent. The risks and benefits of the procedure and the sedation options and risks were discussed with the patient. All questions were answered and informed consent was obtained. Patient identification and proposed procedure were verified by the physician in the pre-procedure area. Mental Status Examination: alert and oriented. Airway Examination: normal oropharyngeal airway and neck mobility. Respiratory Examination: clear to auscultation. CV Examination: normal. Prophylactic Antibiotics: The patient does not require prophylactic antibiotics. Prior Anticoagulants: The patient has taken no previous anticoagulant or antiplatelet agents. ASA Grade Assessment: II - A patient with mild systemic disease. After reviewing the risks and benefits, the patient was deemed in satisfactory condition to undergo the procedure. The anesthesia plan was to use moderate sedation / analgesia (conscious sedation). Immediately prior to administration of medications, the patient was re-assessed for adequacy to receive sedatives. The heart rate, respiratory rate, oxygen saturations, blood pressure, adequacy of pulmonary ventilation, and response to care were monitored throughout the procedure. The physical status of the patient was re-assessed after the procedure. After obtaining informed consent, the endoscope was passed under direct vision. Throughout the procedure, the patient's blood pressure, pulse, and oxygen saturations were monitored continuously. The colonoscope was introduced through the mouth, and advanced to the second part of duodenum. The upper GI endoscopy was accomplished without difficulty. The patient tolerated the procedure well. Moderate Sedation: Moderate (conscious) sedation was administered by the endoscopy nurse and supervised by the endoscopist. The patient's oxygen saturation, heart rate, blood pressure and response to care were monitored. Total physician intraservice time was 15 minutes. Scope In: 4:42:14 PM Scope Out: 4:49:47 PM Total Procedure Duration Time 0 hours 7 minutes 33 seconds Findings: The examined esophagus was normal. Patchy mildly erythematous mucosa without bleeding was found in the gastric body. Multiple 5 mm angiodysplastic lesions with bleeding were found in the first portion of the duodenum. Coagulation for hemostasis using argon plasma at 0.3 liters/minute and 20 campbell was successful. Estimated blood loss was minimal. Impression: - Normal esophagus. - Erythematous mucosa in the gastric body. 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 Treated with argon plasma coagulation (APC). 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 Recommendation: - Return patient to hospital [facility] for ongoing care. - Resume previous diet. - Continue present medications. -Carafate 1 g 4 times daily x1 month and Protonix 40 mg twice a day x8 weeks Procedure Code(s): --- Professional --- 23193, Esophagogastroduodenoscopy, flexible, transoral; with control of bleeding, any method 12263, 59, Moderate sedation services provided by the same physician or other qualified health transitional care liaison performing the diagnostic or therapeutic service that the sedation supports, requiring the presence of an independent trained observer to assist in the monitoring of the patient's level of consciousness and physiological status; initial 15 minutes of intraservice time, patient age 5 years or older CPT copyright 2017 [employer]. All rights reserved. The codes documented in this report are preliminary and upon information coder review may be revised to meet current compliance requirements. Khai Galeana DO 05/02/2021 5:26:26 PM This report has been signed electronically. Number of Addenda: 1 Note Initiated On: 05/02/2021 3:35 PM Addendum Number: 1 Addendum Date: 11/21/2021 6:34:05 AM MAC was used as sedation for this procedure. Khai Galeana DO 11/21/2021 6:34:09 AM This report has been signed electronically.
--- NOTE | 2021-05-02 17:28 | OP.CCLET_ITS ---
11/21/2021 Donna Will [facility] [address] [place] [address] Re : Upper GI endoscopy procedure for Jaydon Quintana Dear Dr. Will This procedure was performed on Sunday, May 02, 2021. My impressions and recommendations are as follows: Impressions : - Normal esophagus. - Erythematous mucosa in the gastric body. 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 Treated with argon plasma coagulation (APC). 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 Recommendations : - Return patient to hospital [facility] for ongoing care. - Resume previous diet. - Continue present medications. -Carafate 1 g 4 times daily x1 month and Protonix 40 mg twice a day x8 weeks My findings are described in the full procedure note, which is enclosed. If I can be of further assistance, please feel free to contact me at . Sincerely, Khai Friend, 05/02/2021 5:26:26 PM This report has been signed electronically.
[2021-05-02] MEDS: Ferrous Sulfate 325 MG Tablet PO (18:00)
[2021-05-02] MEDS: Pantoprazole Sodium 40 MG Tablet PO (21:06)
[2021-05-02] MEDS: Sucralfate 1 GM Tablet PO (21:06)
[2021-05-02] MEDS: Mirtazapine 15 MG Tablet 7.5 MG PO (21:06)
[2021-05-02] MEDS: Atorvastatin Calcium 40 MG Tablet PO (21:07)
[2021-05-02] MEDS: Acetaminophen 325 MG Tablet 650 MG PO (21:10)
[2021-05-03] VITALS (12 sets, daily range): BP systolic 97–154; BP diastolic 53–91; PULSE 63–109; RESP 18–23; TEMP 3.1–38.9; O2SAT 92–100
[2021-05-03 04:06] LABS: Absolute Lymphocyte Count 0.63 X10^3/uL (0.83-4.51); Absolute Neutrophil Count 3.2 X10^3/uL (2.0-7.7); Basophil# 0.01 X10^3/uL; Basophil% 0.2 % (0-1); Eosinophil# 0.13 X10^3/uL; Eosinophils% 2.9 % (0-5); Hematocrit 26.1 % (40-54); Hemoglobin 8.4 g/dL (13.0-16.5); Lymphocyte # 0.63 X10^3/ul (0.83-4.51); Lymphocyte % 14.2 % (19-41); Mean Corp Hgb Conc 32.2 g/dL (32-36); Mean Corpuscular Hgb 26.3 pg (27.0-32.0); Mean Corpuscular Volume 81.8 fL (80-94); Mean Platelet Vol. 9.8 fl (6.2-12.0); Monocyte# 0.44 X10^3/uL; Monocyte% 9.9 % (0-10); NRBC Flagged by Analyzer 0 % (0-5); Neutrophil # 3.15 X10^3/uL (2.7-7.7); Neutrophil % 70.8 % (47-70); Platelet Count 352 K/mm3 (150-450); RBC Distribution Width CV 17.2 % (11.6-14.6); RBC Distribution Width SD 50.8 fl (35.1-43.9); Red Blood Count 3.19 M/mm3 (4.6-6.2); White Blood Count 4.5 K/mm3 (4.4-11.0)
[2021-05-03 04:23] LABS: ALB/GLOB Ratio 0.4 RATIO (0.9-2.4); AST(SGOT) 32 U/L (15-37); Alanine Aminotransfer ALT/SGPT 23 U/L (16-61); Albumin, Serum 1.3 g/dL (3.2-5.0); Alkaline Phosphatase 55 U/L (45-117); Anion Gap 6 (5-15); BUN 17 mg/dL (7-18); BUN/Creat Ratio 12.6 RATIO (10-20); Calcium,Total 7.1 mg/dL (8.5-10.1); Chloride 118 mmol/L (98-107); Creatinine, Serum 1.35 mg/dL (0.70-1.30); EST Glomerular Filtration Rate 55 mL/min (>60); Est Glom Filt Rate - Afr Amer 67 mL/min (>60); Estimated Creatinine Clearance 51.82 ml/min; Globulin 3.3 g/dL (2.2-4.2); Glucose 45 mg/dL (74-106); Potassium 3.2 mmol/L (3.5-5.1); Protein, Total 4.6 g/dL (6.4-8.2); Sodium Level 147 mmol/L (136-145)
[2021-05-03 04:51] LABS: Bedside Glucose 71 mg/dL (74-106)
--- NOTE | 2021-05-03 05:28 | DCINST_ITS ---
Discharge Instructions Follow Up Care Test Results: When you have medically recovered and are cleared from your [facility] care physician please contact my office for a vena cava filter removal. [phone] Wilberto Huerta M.D., F.A.C.S. Discharge Plan Admission Admit Date/Time: 04/29/21 13:50 Attending Provider: Jordan Ortiz Primary Care Provider: Donna Will Consulting Providers: Wilberto Villafuerte ; Alexi Roblero ; Wilberto Huerta Discharge Orders/Prescriptions Prescriptions: No Action aspirin [Adult Aspirin Regimen] 81 mg tablet,delayed release (DR/EC) 81 mg PO DAILY RF: 0 cholecalciferol (vitamin D3) 25 mcg (1,000 unit) capsule 25 mcg PO DAILY RF: 0 nitroglycerin [Nitrostat] 0.4 mg tablet, sublingual 0.4 mg SUBLINGUAL Q5M PRN (Reason: chest pain) Qty: 30 RF: 0 cyanocobalamin (vitamin B-12) 1,000 mcg capsule 1,000 mcg PO DAILY RF: 0 albuterol sulfate 90 mcg/actuation HFA aerosol inhaler 2 puff inhalation Q6H PRN (Reason: shortness of breath or wheezing) Qty: 6.7 RF: 0 atorvastatin 40 mg tablet 40 mg PO QHS RF: 0 metformin 500 mg tablet 500 mg PO BID RF: 0 glimepiride 2 mg tablet 2 mg PO BID RF: 0 ferrous sulfate 325 mg (65 mg iron) tablet 325 mg PO BID RF: 0 amoxicillin-pot clavulanate 875-125 mg tablet 875 mg PO BIDCM RF: 0 metoprolol tartrate 25 mg tablet 25 mg PO BID RF: 0 Glucerna 1.2 Anthony 0.06-1.2 gram-kcal/mL liquid 120 ml PO 4X/DAY RF: 0 Eliquis 5 mg tablet 10 mg PO BID RF: 0 polyethylene glycol 3350 [Miralax] 17 gram Powder In Packet 17 g PO DAILY RF: 0 mirtazapine [Remeron] 15 mg Tablet 7.5 mg PO QHS RF: 0 senna-docusate sodium Tablet 1 tab PO DAILY RF: 0 piperacillin-tazobactam [Zosyn] 3.375 gram Recon Soln 3.375 g IV Q8H RF: 0 vancomycin in 0.9 % sodium chl 1.25 gram/150 mL Solution 125 mg IV Q12H RF: 0 Referrals / Follow Up: Donna Will MD [Primary Care Provider] -
[2021-05-03] MEDS: Metoclopramide 10 MG/2 ML Vial 5 MG IV ×3 (06:32→18:35)
[2021-05-03] MEDS: Menthol/Lanolin/Calamine/Znox 113 GM Tube 1 APPLIC TOPICAL ×3 (06:32→21:16)
[2021-05-03] MEDS: Sucralfate 1 GM Tablet PO ×4 (06:34→21:16)
[2021-05-03 06:41] LABS: Bedside Glucose 38 mg/dL (74-106)
--- NOTE | 2021-05-03 07:09 | PN.CC_ITS ---
Assessment & Plan Assessment/Plan (1) Acute on chronic respiratory failure with hypoxemia: PLAN: RECOMMENDATIONS: 1. Wean supplemental oxygen to maintain saturations at or above 90%. 2. Continue antimicrobials per ID recommendations. 3. Continue to monitor H&H daily and transfuse if hemoglobin drops below 7 g/dL. 4. Potassium repletion as ordered. 5. Continue Carafate and Protonix per GI recommendations. 6. Encourage incentive spirometer use and mobilize patient as tolerated. IMPRESSIONS: 1. Acute on chronic hypoxemic respiratory failure The patient initially presented to the ED with increasing oxygen demand while in the transitional care unit. He was documented for a short period of time to require a nonrebreather. His chest imaging did reveal progressive infiltrates, most pronounced throughout the left hemithorax. The patient does have a history of microaspiration, raising the concern that this could represent an aspiration pneumonia. At this time, the patient will be continued on antimicrobials per ID recommendations. Recommend further dietary advancement per speech therapy recommendations. Continue to wean supplemental oxygen to maintain saturations at or above 90%. Continue to encourage incentive spirometer use and mobilize patient as tolerated. Although there was some concern that the patient had developed sepsis, I think it is far more plausible that the patient's hypotension and lactic acidemia was secondary to acute blood loss anemia. Therefore, sepsis has been ruled out from my perspective. 2. Anemia During the patient's last hospitalization, he was identified as having pulmonary emboli and was subsequently started on Eliquis. Unfortunately, the patient de veloped acute blood loss anemia secondary to angiodysplastic lesions noted in both his upper and lower GI tract, which required treatment with APC to achieve hemostasis. Given that the patient had a contraindication to systemic anticoagulation and had a DVT identified on Doppler study, the decision was made to have an IVC filter placed. At the present time, the patient is stable from a blood count perspective. Recommend continuing to check H&H daily. Transfuse if hemoglobin drops below 7 g/dL. Continue Carafate and Protonix per GI recommendations. 3. History of rheumatoid arthritis/history of non-Hodgkin's lymphoma/heart failure with preserved ejection fraction/chronic tobacco dependency Complicates care, management, recovery and prognosis. The patient does receive rituximab on an outpatient basis for his rheumatoid arthritis, per report. This note was generated with Tidalation software. It may contain incorrect words, spelling, and punctuation that were not noted in checking the note before signing. Subjective Subjective The patient was seen and examined at the bedside this morning. Events from the last 24 hours have been reviewed. The patient is currently afebrile, hemodynamically stable and maintaining appropriate oxygen saturations on 3 L/min via nasal cannula. The patient is currently documented to be overall net +8.4 L for the hospitalization. The patient underwent successful IVC filter placement yesterday. Upper and lower endoscopy were performed which revealed angiodysplastic lesions with stigmata of recent bleeding in the ascending colon and cecum. APC was applied with successful hemostasis achieved. Additional angiodysplastic lesions were noted in the first portion of the duodenum. The patient remains on antimicrobials. Objective Data Objective Data The patient's most recent lab work, culture data and imaging studies have all been personally reviewed. Surface echocardiogram dated March 2021 demonstrated stage I diastolic dysfunction and mild aortic stenosis. Strep and urine Legionella antigens were negative. Blood cultures have not demonstrated any growth to date. MRSA screen was negative. Lower extremity Doppler study revealed DVT in the left lower extremity. Vital Signs: Vital Signs Temp Pulse Resp BP Pulse Ox 99.2 F H 63 20 H 110/91 H 96 05/03/21 04:00 05/03/21 04:00 05/03/21 04:00 05/03/21 04:00 05/03/21 04:00 Oxygen Flow Rate (L/min) 3 Oxygen Delivery Method Nasal Cannula Weight: 90.401 kg Body Mass Index (BMI) 28.8 Intake & Output: Intake and Output for Last 24 Hours 05/01/21 05/02/21 05/03/21 23:59 23:59 23:59 Intake Total 3657.87 / 3657.87 2919.17 / 3039.17 120 / 120 Output Total 200 / 200 Balance 3457.87 / 3457.87 2919.17 / 3039.17 120 / 120 Medical Nutrition Assessment Dietitian: Malnutrition Criteria Met Start: 04/30/21 11:49 Freq: Status: Active Protocol: Document 05/02/21 09:30 (Rec: 05/02/21 09:30 [id number]) Nutrition Malnutrition Evidence of Malnutrition Exists Yes Malnutrition (severe): Acute Illness/Injury Evidenced By Suboptimal Energy Intake ( Severe),Weight Loss (Severe), Physical Changes (Moderate) Clinical Problem Acute Disease or Injury Related Malnutrition Etiology severe, acute malnutrition r/t inadequate energy intake during COVID illness/acute hospitalizations Signs/Symptoms as evidenced by unintentional wt loss of 5.187kg/5.2% since 03/23/21 noted; 7.6kg/7.7% from 03/23/21-04/29/21; estimated PO intake meeting <50% of estimated energy needs >1 week ; moderate muscle wasting/fat loss per physical exam Status Active Problem Recommendation Dietitian Recommendations/Changes regular diet-texture/ consistency modifications per FIELD CONTACT PERSON; Glucerna ONS w/ meals when PO diet resumed. Will closely monitor PO intake as diet resumed and adjust ONS as indicated. Lab / Micro Data Result Diagrams: 05/03/21 03:50 05/03/21 03:50 Labs: Laboratory Results - last 24 hr 05/02/21 06:24: POC Glucose 64 L 05/02/21 08:16: POC Glucose 105 05/02/21 10:13: POC Glucose 76 05/02/21 15:21: POC Glucose 45 L 05/02/21 15:53: POC Glucose 101 05/02/21 21:24: POC Glucose 71 L 05/03/21 03:50: Sodium 147 H, Potassium 3.2 L, Chloride 118 H, Carbon Dioxide 2 3.0, Anion Gap 6, BUN 17, Creatinine 1.35 H, Estim Creat Clear Calc 51.82, Est GFR (MDRD) Af Amer 67, Est GFR (MDRD) Non-Af 55 L, BUN/Creatinine Ratio 12.6, Glucose 45 L, Calcium 7.1 L, Total Bilirubin 0.30, AST 32, ALT 23, Alkaline Phosphatase 55, Total Protein 4.6 L, Albumin 1.3 L, Globulin 3.3, Albumin/Globulin Ratio 0.4 L 05/03/21 03:50: WBC 4.5, RBC 3.19 L, Hgb 8.4 L, Hct 26.1 L, MCV 81.8, MCH 26.3 L , MCHC 32.2, RDW Std Deviation 50.8 H, RDW Coeff of Rafael 17.2 H, Plt Count 352, MPV 9.8, Immature Gran % (Auto) 2.000 H, Neut % (Auto) 70.8 H, Lymph % (Auto) 14.2 L, [place] % (Auto) 9.9, Eos % (Auto) 2.9, Baso % (Auto) 0.2, Absolute Neuts (auto) 3.2, Absolute Lymphs (auto) 0.63 L, Nucleated RBC % 0 05/03/21 06:31: POC Glucose 38 L* Micro: Microbiology 05/01/21 11:00 Stool Stool Occult Blood (FOREST) - Final Occult Blood Positive 04/29/21 11:30 Blood Culture (Wb) - Arm Right Blood Culture - Preliminary No growth in 48 hours. 04/29/21 11:03 Blood Culture (Wb) - Anticubital Left Blood Culture - Prelim inary No growth in 48 hours. 05/01/21 06:30 Urine, Clean Catch Legionella Antigen - Final 05/01/21 06:30 Urine, Clean Catch Streptococcus pneumoniae Antigen (M - Fi nal 04/29/21 11:30 Nasal Secretion SARS-CoV-2 Antigen (Rapid) - Final Physical Exam Const alert and no apparent distress Constitutional Narrative: Resting comfortably in bed. General Appearance: cooperative HEENT normocephalic, head/scalp atraumatic and moist oral mucous membranes Eyes PERRL and EOMs intact bilaterally Neck supple General: trachea midline Chest inspection of chest normal Resp Auscultation: diminished lung sounds; Negative for rales, rhonchi or wheezes Cardio regular rate and regular rhythm GI normal to inspection, nondistended, normoactive bowel sounds Extremity General Extremity: edema bilateral lower extremity; Negative for clubbing Skin no rashes or lesions noted Neuro CN's II-XII intact bilaterally and no focal motor deficits Psych Mood & Affect: flat affect Charges/Coding Visit Charges Inpatient E&M: 81800 Subs Hosp L3
[2021-05-03 07:16] LABS: Bedside Glucose 67 mg/dL (74-106)
--- NOTE | 2021-05-03 07:23 | PN.HOSP_ITS ---
Subjective Subjective Patient underwent EGD, colonoscopy and IVC filter details reportedly assessment and plan. Objective Data Objective Data Vital Signs: Vital Signs Temp Pulse Resp BP Pulse Ox 99.2 F H 63 20 H 110/91 H 96 05/03/21 04:00 05/03/21 04:00 05/03/21 04:00 05/03/21 04:00 05/03/21 04:00 Oxygen Flow Rate (L/min) 3 Oxygen Delivery Method Nasal Cannula Weight: 90.401 kg Body Mass Index (BMI) 28.8 Intake & Output: Intake and Output for Last 24 Hours 05/01/21 05/02/21 05/03/21 23:59 23:59 23:59 Intake Total 3657.87 / 3657.87 2919.17 / 3039.17 120 / 120 Output Total 200 / 200 Balance 3457.87 / 3457.87 2919.17 / 3039.17 120 / 120 Medical Nutrition Assessment Dietitian: Malnutrition Criteria Met Start: 04/30/21 11:49 Freq: Status: Active Protocol: Document 05/02/21 09:30 AG (Rec: 05/02/21 09:30 [id number]) Nutrition Malnutrition Evidence of Malnutrition Exists Yes Malnutrition (severe): Acute Illness/Injury Evidenced By Suboptimal Energy Intake ( Severe),Weight Loss (Severe), Physical Changes (Moderate) Clinical Problem Acute Disease or Injury Related Malnutrition Etiology severe, acute malnutrition r/t inadequate energy intake during COVID illness/acute hospitalizations Signs/Symptoms as evidenced by unintentional wt loss of 5.187kg/5.2% since 03/23/21 noted; 7.6kg/7.7% from 03/23/21-04/29/21; estimated PO intake meeting <50% of estimated energy needs >1 week ; moderate muscle wasting/fat loss per physical exam Status Active Problem Recommendation Dietitian Recommendations/Changes regular diet-texture/ consistency modifications per ELECTRON BEAM WELDER SETTER; Glucerna ONS w/ meals when PO diet resumed. Will closely monitor PO intake as diet resumed and adjust ONS as indicated. Lab / Micro Data Result Diagrams: 05/03/21 03:50 05/03/21 03:50 Labs: Laboratory Results - last 24 hr 05/02/21 06:24: POC Glucose 64 L 05/02/21 08:16: POC Glucose 105 05/02/21 10:13: POC Glucose 76 05/02/21 15:21: POC Glucose 45 L 05/02/21 15:53: POC Glucose 101 05/02/21 21:24: POC Glucose 71 L 05/03/21 03:50: Sodium 147 H, Potassium 3.2 L, Chloride 118 H, Carbon Dioxide 23.0, Anion Gap 6, BUN 17, Creatinine 1.35 H, Estim Creat Clear Calc 51.82, Est GFR (MDRD) Af Amer 67, Est GFR (MDRD) Non-Af 55 L, BUN/Creatinine Ratio 12.6, Glucose 45 L, Calcium 7.1 L, Total Bilirubin 0.30, AST 32, ALT 23, Alkaline Phosphatase 55, Total Protein 4.6 L, Albumin 1.3 L, Globulin 3.3, Albumin/Globulin Ratio 0.4 L 05/03/21 03:50: WBC 4.5, RBC 3.19 L, Hgb 8.4 L, Hct 26.1 L, MCV 81.8, MCH 26.3 L , MCHC 32.2, RDW Std Deviation 50.8 H, RDW Coeff of Rafael 17.2 H, Plt Count 352, MPV 9.8, Immature Gran % (Auto) 2.000 H, Neut % (Auto) 70.8 H, Lymph % (Auto) 14.2 L, Benzie % (Auto) 9.9, Eos % (Auto) 2.9, Baso % (Auto) 0.2, Absolute Neuts (auto) 3.2, Absolute Lymphs (auto) 0.63 L, Nucleated RBC % 0 05/03/21 06:31: POC Glucose 38 L* 05/03/21 07:13: POC Glucose 67 L Micro: Microbiology 05/01/21 11:00 Stool Stool Occult Blood (FOREST) - Final Occult Blood Positive 04/29/21 11:30 Blood Culture (Wb) - Arm Right Blood Culture - Preliminary No growth in 48 hours. 04/29/21 11:03 Blood Culture (Wb) - Anticubital Left Blood Culture - Preliminary No growth in 48 hours. 05/01/21 06:30 Urine, Clean Catch Legionella Antigen - Final 05/01/21 06:30 Urine, Clean Catch Streptococcus pneumoniae Antigen (M - Final 04/29/21 11:30 Nasal Secretion SARS-CoV-2 Antigen (Rapid) - Final Physical Exam Narrative GENERAL: Frail looking HEENT: Atraumatic; EYES; Anicteric, Normal Conjunctiva NECK; supple, normal thyroid, RESPIRATORY: Diminished to auscultation CARDIOVASCULAR: Regular S1 S2, GI: soft, normoactive bowel sounds, : No Renal angle tenderness; EXTREMITIES: No edema, no clubbing, MUSCULOSKELETAL: no muscle wasting NEURO: Awake; no lateralizing signs. SKIN: No Rash PSYCH; Flat affect Assessment & Plan Assessment/Plan (1) Dyspnea: (2) Pleural effusion: PLAN: Patient is a 70-year-old gentleman with history of recent COVID-19 pneumonia later complicated by bilateral pulmonary embolism presented to the emergency department with progressive shortness of breath. An assessment of acute on chronic hypoxic respiratory failure made admitted to regular nursing floor for further management 1. Acute on chronic hypoxic respiratory. ?Multifactorial including recent bilateral pulmonary embolism, recent Covid pneumonia with suspected residual pulmonary fibrosis as well as possible aspiration pneumonitis. Patient was started on broad-spectrum antibiotic therapy with vancomycin and Zosyn with consultation placed to pulmonary and ID. Case was discussed with Dr. Singleton with pulmonary medicine plan is for patient to be kept n.p.o. for speech and swallow eval 2. Suspected sepsis ?05/01/2021 patient has source of infection ~Possible aspiration pneumonia currently hypotensive. Sepsis work-up initiated with lactic acid levels ordered. Patient already on broad-spectrum antibiotic therapy. Cultures were obtained on admission however with patient continued to experience high-grade fever repeat cultures ordered. Patient has already been seen by ID. With patient being hypotensive patient was resuscitated with IV fluids. Plan is to transfer patient to the intensive care unit -05/02/2021. Patient resuscitated with IV fluid did continue with broad-spectrum antibiotic therapy repeat cultures sent -05/03/2021. Patient blood pressure has stabilized 3. Recent bilateral pulmonary embolism COVID induced coagulopathy ?Patient is on Eliquis did continue -05/01/2021; Eliquis held upon suggestion by pulmonary medicine currently on heparin -05/02/2021; bilateral venous duplex obtained today prior did demonstrate Acute deep venous thrombosis left common femoral and posterior tibial veins. Patient was on heparin discontinued in view of associated GI bleed - 05/03/2021; patient underwent inferior venacavogram with transright jugular inferior vena cava filter placement (Teresa filter) by Dr. Wilberto Huerta on 05/02/2021. 4. 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 -05/01/2021. With patient deemed to be symptomatic and order was given for patient to be transfused with 1 unit PRBC in addition iron studies B12 ferritin level and reticulocyte count ordered prior to initiation of transfusion. Also did order stool for guaiac and if positive will consider consultation with GI for possible endoscopic evaluation ?05/02/2021. Patient did develop active GI bleed heparin was discontinued started on Protonix drip consult placed to GI plan is for patient to undergo both upper and lower endoscopy on 05/02/[address] Galeana 05/03/2021 results of EGD and colonoscopy performed the day prior findings and recommendation as below Upper GI endoscopy procedure for Jaydon Quintana Impressions : - Normal esophagus. - Erythematous mucosa in the gastric body. 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 Treated with argon plasma coagulation (APC). 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 Recommendations : - Return patient to hospital [facility] for ongoing care. - Resume previous diet. - Continue present medications. -Carafate 1 g 4 times daily x1 month and Protonix 40 mg twice a day x8 weeks Colonoscopy procedure for Jaydon Quintana Impressions : - Three recently bleeding colonic angiodysplastic lesions. Treated with argon plasma coagulation (APC). - Congested mucosa in the entire examined colon. 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 Recommendations : - Return patient to hospital schre[facility] for ongoing care. - Resume previous diet. - Continue present medications. - Repeat colonoscopy in 5 years for surveillance. 5. Diabetes mellitus type II -patient's oral hypoglycemics held. Placed on long acting insulin, Accu-Cheks a.c. and at bedtime and covered with sliding scale insulin 6. Rheumatoid arthritis Patient is on rituximab as outpatient. 7. Non Hodgkin's lymphoma ?Apparently in remission 8. Coronary artery disease ?With previous PCI of an LAD RCA and mid circumflex lesions 9. Dyslipidemia ?Per history currently not on any statin therapy 10. Tobacco dependence - Counseled on cessation, offered nicotine patch for tobacco cravings7 11. Physical deconditioning - Requested for PT OT eval and social work professor to assist with discharge planning 12. Hypertension - Blood pressure controlled, home medications continued with dose adjustment as needed -05/01/2021 patient antihypertensives held in view of his relative low blood pressure 13. DVT prophylaxis - on on heparin - 05/02/2021 Heparin on hold in view of active GI bleed 14. Acute encephalopathy ?Possibly related to #1 however MRI of the brain ordered to rule out a neurological etiology - 15. Severe malnutrition ?As evidenced by suboptimal energy intake severe weight loss and this is related to patient chronic pancreatitis as well as alcoholism. Recommendation as noted above by dietitian 16. Suspected depression ?Patient started on Lexapro Charges/Coding Visit Charges Inpatient E&M: 41069 Subs Hosp L3
[2021-05-03] MEDS: Potassium Chloride 10mEq/100mL 10 MEQ/100 ML IV.SOLN. 100 MEQ IV BOLUS ×4 (07:53→10:57)
[2021-05-03 08:05] LABS: Bedside Glucose 104 mg/dL (74-106)
[2021-05-03] MEDS: Escitalopram Oxalate 10 MG Tablet PO (09:06)
[2021-05-03] MEDS: Senna/Docusate Sodium 1 Tablet PO (09:06)
[2021-05-03] MEDS: Polyethylene Glycol 3350 17 GM PACKET PO (09:07)
[2021-05-03] MEDS: Aspirin E.C. 81 MG Tablet PO (09:07)
[2021-05-03] MEDS: Cyanocobalamin 500 MCG Tablet 1000 MCG PO (09:07)
[2021-05-03] MEDS: Pantoprazole Sodium 40 MG Tablet PO ×2 (09:07→21:24)
[2021-05-03] MEDS: Cholecalciferol (VIT D3) 25 MCG TABLET (1,000 UNITS) PO (09:07)
[2021-05-03] MEDS: Ferrous Sulfate 325 MG Tablet PO ×2 (09:08→16:56)
--- NOTE | 2021-05-03 09:37 | CASEMGMT ---
Social Work Per Dr. Ortiz, pt may be ready to return to TCU tomorrow. TYE updated Rosanna in TCU and precert will be started today. Plan: TCU, pending precert. JOEY Zuñiga
--- NOTE | 2021-05-03 09:49 | PCM.PN.ID ---
Physical Exam Narrative Feeling ok, no dyspnea, no fever Const alert and no apparent distress General Appearance: cooperative Resp normal air movement and clear to auscultation bilaterally Cardio regular rate and regular rhythm GI soft to palpation and non-tender Skin no rashes or lesions noted ID ID: Route of nutrition/ use of supplements: [] Nutritional Intake: [] IV Site: [] Ball Catheter: [] Assessment & Plan Assessment/Plan (1) Dyspnea: PLAN: Cxs neg so far, on empiric zosyn. Recent covid, rhinovirus, CAP, and PEs. Has had covid vaccine x3. Pulm following. Possible aspiration. No fever last night, clinically improved. Day 5 of abx. Plan on stopping tomorrow. Fevers have resolved. Will follow
[2021-05-03 11:11] LABS: Bedside Glucose 97 mg/dL (74-106)
[2021-05-03] MEDS: 0.9% Saline Lock 10 ML Syringe IV (12:38)
[2021-05-03 14:06] LABS: Bedside Glucose 154 mg/dL (74-106)
--- NOTE | 2021-05-03 16:27 | CASEMGMT ---
SW received a call from Rosanna and patient was approved to return to TCU. Plan: d/c to TCU when medically ready. Kesha REESE
[2021-05-03] MEDS: Acetaminophen 325 MG Tablet 650 MG PO (16:55)
[2021-05-03 17:16] LABS: Bedside Glucose 133 mg/dL (74-106)
[2021-05-03] MEDS: Atorvastatin Calcium 40 MG Tablet PO (21:22)
[2021-05-03] MEDS: Mirtazapine 15 MG Tablet 7.5 MG PO (21:25)
[2021-05-03 22:56] LABS: Bedside Glucose 122 mg/dL (74-106)
[2021-05-03 22:56] LABS: Bedside Glucose 112 mg/dL (74-106)
[2021-05-04] VITALS (8 sets, daily range): BP systolic 134–137; BP diastolic 61–76; PULSE 83–112; RESP 16–18; TEMP 36.2–37; O2SAT 92–100
[2021-05-04 05:12] LABS: Absolute Lymphocyte Count 0.59 X10^3/uL (0.83-4.51); Absolute Neutrophil Count 3.6 X10^3/uL (2.0-7.7); Basophil# 0.02 X10^3/uL; Basophil% 0.4 % (0-1); Eosinophil# 0.18 X10^3/uL; Eosinophils% 3.6 % (0-5); Hematocrit 26.1 % (40-54); Hemoglobin 8.3 g/dL (13.0-16.5); Lymphocyte # 0.59 X10^3/ul (0.83-4.51); Lymphocyte % 11.9 % (19-41); Mean Corp Hgb Conc 31.8 g/dL (32-36); Mean Corpuscular Hgb 26.5 pg (27.0-32.0); Mean Corpuscular Volume 83.4 fL (80-94); Monocyte# 0.49 X10^3/uL; Monocyte% 9.9 % (0-10); NRBC Flagged by Analyzer 0 % (0-5); Neutrophil # 3.56 X10^3/uL (2.7-7.7); Neutrophil % 72.2 % (47-70); POSITIVE DIFFERENTIAL YES; Platelet Count 389 K/mm3 (150-450); RBC Distribution Width CV 17.7 % (11.6-14.6); RBC Distribution Width SD 53.6 fl (35.1-43.9); Red Blood Count 3.13 M/mm3 (4.6-6.2); White Blood Count 4.9 K/mm3 (4.4-11.0)
[2021-05-04 05:20] LABS: Differential Indicated SCAN CRITERIA MET
[2021-05-04] MEDS: Metoclopramide 10 MG/2 ML Vial 5 MG IV ×2 (05:26→11:42)
[2021-05-04] MEDS: 0.9% Saline Lock 10 ML Syringe IV ×2 (05:32→11:42)
[2021-05-04] MEDS: Menthol/Lanolin/Calamine/Znox 113 GM Tube 1 APPLIC TOPICAL (05:40)
[2021-05-04 06:30] LABS: Differential Comment SCANNED
[2021-05-04 07:00] LABS: Bedside Glucose 60 mg/dL (74-106)
[2021-05-04 07:21] LABS: Bedside Glucose 67 mg/dL (74-106)
--- NOTE | 2021-05-04 07:33 | PCM.TXEXTCAR ---
Diet 05/02/21 17:27 Diet: Regular - General Food consistency:: Soft & Bite Sized Liquid Consistency:: Regular/Thin Type of Dietary Supplement:: Glucerna Shake Is pt able to select menu?: No Diet Comments: HOB 90, 1 bite/sip @ time, 100% supervision Routine Orders/Code Status Routine Lab Work: CBC (On 05/07/2021) and BMP (On 05/07/2021) Code Status: Full Code Wound(s) coccyx: Wound Type: Pressure Injury rt shoulder: Wound Type: Pressure Injury rt neck: Wound Type: Puncture LFA: Wound Type: Skin Tear Therapies Physical Therapy: Eval and Treat Occupational Therapy: Eval and Treat Speech Therapy: Eval and Treat Problem/Diagnosis (1) Dyspnea: Status: Acute Allergies/Procedures Done in Hospital Allergies famotidine [From Pepcid] Adverse Reaction (Intermediate, Verified 04/29/21 10:45) Diarrhea levofloxacin [From Levaquin] Adverse Reaction (Intermediate, Verified 04/29/21 10:45) dizziness Type of Care/Length of Stay Estimated LOS: Convalescent Care Less Than 30 days Type of Care Needed: Skilled Rehab Potential: Good Prognosis: Good Additional Orders/Day of Discharge Day of Discharge: 05/04/21 Dietary and Speech Recommendations Dietitian Recommendations/Changes: regular diet-texture/consistency modifications per GENERAL MANAGER; Glucerna ONS w/ meals when PO diet resumed. Will closely monitor PO intake as diet resumed and adjust ONS as indicated. Discharge Plan Admission Admit Date/Time: 04/29/21 13:50 Attending Provider: Jordan Ortiz Primary Care Provider: Donna Will Consulting Providers: Wilberto Huerta ; Wilberto Villafuerte ; Alexi Roblero Discharge Orders/Prescriptions Prescriptions: New acetaminophen [Tylenol] 325 mg Tablet 650 mg PO Q6H PRN PRN (Reason: Pain Score 1-10/Temp > 100.7 F) Qty: 0 RF: 0 escitalopram oxalate 10 mg Tablet 10 mg PO DAILY Qty: 0 RF: 0 GlucaGen Diagnostic Kit 1 mg/mL Recon Soln 1 mg IM X1 PRN (Reason: Hypoglycemia) Qty: 0 RF: 0 insulin lispro [Humalog KwikPen Insulin] 100 unit/mL Insulin Pen See Protocol unit subcut ACHS Qty: 0 RF: 0 menthol-zinc oxide [Calmoseptine] 0.44-20.6 % Ointment 1 applic topical TID Qty: 0 RF: 0 sucralfate 1 gram Tablet 1 g PO 1HR_ACHS Qty: 0 RF: 0 pantoprazole 40 mg Tablet,Delayed Release (Dr/Ec) 40 mg PO BID Qty: 0 RF: 0 Continued aspirin [Adult Aspirin Regimen] 81 mg tablet,delayed release (DR/EC) 81 mg PO DAILY RF: 0 cholecalciferol (vitamin D3) 25 mcg (1,000 unit) capsule 25 mcg PO DAILY RF: 0 nitroglycerin [Nitrostat] 0.4 mg tablet, sublingual 0.4 mg SUBLINGUAL Q5M PRN (Reason: chest pain) Qty: 30 RF: 0 cyanocobalamin (vitamin B-12) 1,000 mcg capsule 1,000 mcg PO DAILY RF: 0 albuterol sulfate 90 mcg/actuation HFA aerosol inhaler 2 puff inhalation Q6H PRN (Reason: shortness of breath or wheezing) Qty: 6.7 RF: 0 atorvastatin 40 mg tablet 40 mg PO QHS RF: 0 metformin 500 mg tablet 500 mg PO BID RF: 0 ferrous sulfate 325 mg (65 mg iron) tablet 325 mg PO BID RF: 0 metoprolol tartrate 25 mg tablet 25 mg PO BID RF: 0 Glucerna 1.2 Anthony 0.06-1.2 gram-kcal/mL liquid 120 ml PO 4X/DAY RF: 0 polyethylene glycol 3350 [Miralax] 17 gram Powder In Packet 17 g PO DAILY RF: 0 mirtazapine [Remeron] 15 mg Tablet 7.5 mg PO QHS RF: 0 senna-docusate sodium Tablet 1 tab PO DAILY RF: 0 Discontinued glimepiride 2 mg tablet 2 mg PO BID RF: 0 amoxicillin-pot clavulanate 875-125 mg tablet 875 mg PO BIDCM RF: 0 Eliquis 5 mg tablet 10 mg PO BID RF: 0 piperacillin-tazobactam [Zosyn] 3.375 gram Recon Soln 3.375 g IV Q8H RF: 0 vancomycin in 0.9 % sodium chl 1.25 gram/150 mL Solution 125 mg IV Q12H RF: 0 Referrals / Follow Up: Donna Will MD [Primary Care Provider] - Within 2 Weeks Disposition Disposition (needs filled in before D/C Order can be placed): [facility]
--- NOTE | 2021-05-04 07:33 | PCM.PN.HOSP ---
Subjective Subjective Patient seen was transferred from the ICU to PCU the day prior. Had a relatively uneventful evening. Plan is for patient to be assessed for possible discharge Objective Data Objective Data Vital Signs: Vital Signs Temp Pulse Resp BP Pulse Ox 97.2 F L 83 16 137/66 H 92 05/04/21 02:14 05/04/21 02:14 05/04/21 02:14 05/04/21 02:14 05/04/21 02:14 Oxygen Flow Rate (L/min) 2 Oxygen Delivery Method Nasal Cannula Weight: 91 kg Body Mass Index (BMI) 28.8 Intake & Output: Intake and Output for Last 24 Hours 05/02/21 05/03/21 05/04/21 23:59 23:59 23:59 Intake Total 2919.17 / 3039.17 1003.33 / 1003.33 50 / 50 Output Total 450 / 450 450 / 450 Balance 2919.17 / 3039.17 553.33 / 553.33 -400 / -400 Medical Nutrition Assessment Dietitian: Malnutrition Criteria Met Start: 04/30/21 11:49 Freq: Status: Active Protocol: Document 05/02/21 09:30 AG (Rec: 05/02/21 09:30 AG [id number]) Nutrition Malnutrition Evidence of Malnutrition Exists Yes Malnutrition (severe): Acute Illness/Injury Evidenced By Suboptimal Energy Intake ( Severe),Weight Loss (Severe), Physical Changes (Moderate) Clinical Problem Acute Disease or Injury Related Malnutrition Etiology severe, acute malnutrition r/t inadequate energy intake during COVID illness/acute hospitalizations Signs/Symptoms as evidenced by unintentional wt loss of 5.187kg/5.2% since 03/23/21 noted; 7.6kg/7.7% from 03/23/21-04/29/21; estimated PO intake meeting <50% of estimated energy needs >1 week ; moderate muscle wasting/fat loss per physical exam Status Active Problem Recommendation Dietitian Recommendations/Changes regular diet-texture/ consistency modifications per DOBBY LOOM CHAIN 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 Will closely monitor PO intake as diet resumed and adjust ONS as indicated. Lab / Micro Data Result Diagrams: 05/04/21 04:05 05/03/21 03:50 Labs: Laboratory Results - last 24 hr 05/03/21 07:56: POC Glucose 104 05/03/21 10:55: POC Glucose 97 05/03/21 13:58: POC Glucose 154 H 05/03/21 17:02: POC Glucose 133 H 05/03/21 19:39: POC Glucose 112 H 05/03/21 21:12: POC Glucose 122 H 05/04/21 04:05: WBC 4.9, RBC 3.13 L, Hgb 8.3 L, Hct 26.1 L, MCV 83.4, MCH 26.5 L, MCHC 31.8 L, RDW Std Deviation 53.6 H, RDW Coeff of Rafael 17.7 H, Plt Count 389, MPV 10.0, Immature Gran % (Auto) 2.000 H, Neut % (Auto) 72.2 H, Lymph % (Auto) 11.9 L, [place] % (Auto) 9.9, Eos % (Auto) 3.6, Baso % (Auto) 0.4, Absolute Neuts (auto) 3.6, Absolute Lymphs (auto) 0.59 L, Nucleated RBC % 0, Differential Comment SCANNED 05/04/21 06:46: POC Glucose 60 L 05/04/21 07:13: POC Glucose 67 L Micro: Microbiology 05/01/21 11:52 Blood Culture (Wb) - Right Hand Blood Culture - Preliminary No growth in 48 hours. 05/01/21 11:15 Blood Culture (Wb) - Right Hand Blood Culture - Preliminary No growth in 48 hours. 05/01/21 11:00 Stool Stool Occult Blood (FOREST) - Final Occult Blood Positive 04/29/21 11:30 Blood Culture (Wb) - Arm Right Blood Culture - Preliminary No growth in 48 hours. 04/29/21 11:03 Blood Culture (Wb) - Anticubital Left Blood Culture - Preliminary No growth in 48 hours. 05/01/21 06:30 Urine, Clean Catch Legionella Antigen - Final 05/01/21 06:30 Urine, Clean Catch Streptococcus pneumoniae Antigen (M - Final 04/29/21 11:30 Nasal Secretion SARS-CoV-2 Antigen (Rapid) - Final Physical Exam Narrative GENERAL: Frail looking HEENT: Atraumatic; EYES; Anicteric, Normal Conjunctiva NECK; supple, normal thyroid, RESPIRATORY: Diminished to auscultation CARDIOVASCULAR: Regular S1 S2, GI: soft, normoactive bowel sounds, : No Renal angle tenderness; EXTREMITIES: No edema, no clubbing, MUSCULOSKELETAL: no muscle wasting NEURO: Awake; no lateralizing signs. SKIN: No Rash PSYCH; Flat affect Assessment & Plan Assessment/Plan (1) Dyspnea: PLAN: Patient is a 70-year-old gentleman with history of recent COVID-19 pneumonia later complicated by bilateral pulmonary embolism presented to the emergency department with progressive shortness of breath. An assessment of acute on chronic hypoxic respiratory failure made admitted to regular nursing floor for further management 1. Acute on chronic hypoxic respiratory. ?Multifactorial including recent bilateral pulmonary embolism, recent Covid pneumonia with suspected residual pulmonary fibrosis as well as possible aspiration pneumonitis. Patient was started on broad-spectrum antibiotic therapy with vancomycin and Zosyn with consultation placed to pulmonary and ID. Case was discussed with Dr. Singleton with pulmonary medicine plan is for patient to be kept n.p.o. for speech and swallow eval 2. Suspected sepsis ?05/01/2021 patient has source of infection ~Possible aspiration pneumonia currently hypotensive. Sepsis work-up initiated with lactic acid levels ordered. Patient already on broad-spectrum antibiotic therapy. Cultures were obtained on admission however with patient continued to experience high-grade fever repeat cultures ordered. Patient has already been seen by ID. With patient being hypotensive patient was resuscitated with IV fluids. Plan is to transfer patient to the intensive care unit -05/02/2021. Patient resuscitated with IV fluid did continue with broad-spectrum antibiotic therapy repeat cultures sent -05/03/2021. Patient blood pressure has stabilized 3. Recent bilateral pulmonary embolism COVID induced coagulopathy ?Patient is on Eliquis did continue -05/01/2021; Eliquis held upon suggestion by pulmonary medicine currently on heparin -05/02/2021; bilateral venous duplex obtained today prior did demonstrate Acute deep venous thrombosis left common femoral and posterior tibial veins. Patient was on heparin discontinued in view of associated GI bleed - 05/03/2021; patient underwent inferior venacavogram with transright jugular inferior vena cava filter placement (Teresa filter) by Dr. Wilberto Huerta on 05/02/2021. 4. Anemia Secondary to combination of acute GI bleed as well as anemia of chronic disorder - Secondary to chronic disorder monitoring H&H and transfuse if patient becomes symptomatic or hemoglobin falls below 7.Patient hemoglobin as of 04/30/2021 7.1 repeat H&H ordered for a.m. -05/01/2021. With patient deemed to be symptomatic and order was given for patient to be transfused with 1 unit PRBC in addition iron studies B12 ferritin level and reticulocyte count ordered prior to initiation of transfusion. Also did order stool for guaiac and if positive will consider consultation with GI for possible endoscopic evaluation ?05/02/2021. Patient did develop active GI bleed heparin was discontinued started on Protonix drip consult placed to GI plan is for patient to undergo both upper and lower endoscopy on 05/02/[address] Galeana 05/03/2021 results of EGD and colonoscopy performed the day prior findings and recommendation as below Upper GI endoscopy procedure for Jaydon Quintana Impressions : - Normal esophagus. - Erythematous mucosa in the gastric body. 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 Treated with argon plasma coagulation (APC). 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 Recommendations : - Return patient to hospital schreiber for ongoing care. - Resume previous diet. - Continue present medications. -Carafate 1 g 4 times daily x1 month and Protonix 40 mg twice a day x8 weeks Colonoscopy procedure for Jaydon Quintana Impressions : - Three recently bleeding colonic angiodysplastic lesions. Treated with argon plasma coagulation (APC). - Congested mucosa in the entire examined colon. 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 Recommendations : - Return patient to hospital schreiber for ongoing care. - Resume previous diet. - Continue present medications. - Repeat colonoscopy in 5 years for surveillance. 5. Diabetes mellitus type II -patient's oral hypoglycemics held. Placed on long acting insulin, Accu-Cheks a.c. and at bedtime and covered with sliding scale insulin 6. Rheumatoid arthritis Patient is on rituximab as outpatient. 7. Non Hodgkin's lymphoma ?Apparently in remission 8. Coronary artery disease ?With previous PCI of an LAD RCA and mid circumflex lesions 9. Dyslipidemia ?Per history currently not on any statin therapy 10. Tobacco dependence - Counseled on cessation, offered nicotine patch for tobacco cravings7 11. Physical deconditioning - Requested for PT OT eval and health and social care teacher to assist with discharge planning 12. Hypertension - Blood pressure controlled, home medications continued with dose adjustment as needed -05/01/2021 patient antihypertensives held in view of his relative low blood pressure 13. DVT prophylaxis - on on heparin - 05/02/2021 Heparin on hold in view of active GI bleed 14. Acute encephalopathy ?Possibly related to #1 however MRI of the brain ordered to rule out a neurological etiology - 15. Severe malnutrition ?As evidenced by suboptimal energy intake severe weight loss and this is related to patient chronic pancreatitis as well as alcoholism. Recommendation as noted above by dietitian 16. Suspected depression ?Patient started on Lexapro Charges/Coding Visit Charges Inpatient E&M: 01354 Subs Hosp L2
[2021-05-04 07:36] LABS: Bedside Glucose 106 mg/dL (74-106)
--- NOTE | 2021-05-04 08:39 | PN.CC_ITS ---
Assessment & Plan Assessment/Plan (1) Acute on chronic respiratory failure with hypoxemia: PLAN: RECOMMENDATIONS: 1. Wean supplemental oxygen to maintain saturations at or above 90%. 2. Continue antimicrobials per ID recommendations. 3. Continue to monitor H&H daily and transfuse if hemoglobin drops below 7 g/dL. 4. Continue Carafate and Protonix per GI recommendations. 5. Encourage incentive spirometer use and mobilize patient as tolerated. 6. Will sign off from a critical care perspective. IMPRESSIONS: 1. Acute on chronic hypoxemic respiratory failure The patient initially presented to the ED with increasing oxygen demand while in the transitional care unit. He was documented for a short period of time to require a nonrebreather. His chest imaging did reveal progressive infiltrates, most pronounced throughout the left hemithorax. The patient does have a history of microaspiration, raising the concern that this could represent an aspiration pneumonia. At this time, the patient will be continued on antimicrobials per ID recommendations. Recommend further dietary advancement per speech therapy recommendations. Continue to wean supplemental oxygen to maintain saturations at or above 90%. Continue to encourage incentive spirometer use and mobilize patient as tolerated. Although there was some concern that the patient had developed sepsis, I think it is far more plausible that the patient's hypotension and lactic acidemia was secondary to acute blood loss anemia. Therefore, sepsis has been ruled out from my perspective. 2. Anemia During the patient's last hospitalization, he was identified as having pulmonary emboli and was subsequently started on Eliquis. Unfortunately, the patient developed acute blood loss anemia secondary to angiodysplastic lesions noted in both his upper and lower GI tract, which required treatment with APC to achieve hemostasis. Given that the patient had a contraindication to systemic anticoagulation and had a DVT identified on Doppler study, the decision was made to have an IVC filter placed. At the present time, the patient is stable from a blood count perspective. Recommend continuing to check H&H daily. Transfuse if hemoglobin drops below 7 g/dL. Continue Carafate and Protonix per GI recommendations. 3. History of rheumatoid arthritis/history of non-Hodgkin's lymphoma/heart failure with preserved ejection fraction/chronic tobacco dependency Complicates care, management, recovery and prognosis. The patient does receive rituximab on an outpatient basis for his rheumatoid arthritis, per report. This note was generated with [employer] software. It may contain incorrect words, spelling, and punctuation that were not noted in checking the note before signing. Subjective Subjective The patient was seen and examined at the bedside this morning. Events from the last 24 hours have been reviewed. The patient is currently afebrile, hemodynamically stable and maintaining appropriate oxygen saturations on 2 L/min via nasal cannula. The patient is currently documented to be overall net +8.4 L for the hospitalization. Hemoglobin is stable at 8.3 g/dL. Objective Data Objective Data The patient's most recent lab work, culture data and imaging studies have all been personally reviewed. Surface echocardiogram dated March 2021 dem onstrated stage I diastolic dysfunction and mild aortic stenosis. Strep and urine Legionella antigens were negative. Blood cultures have not demonstrated any growth to date. MRSA screen was negative. Lower extremity Doppler study revealed DVT in the left lower extremity. Vital Signs: Vital Signs Temp Pulse Resp BP Pulse Ox 97.2 F L 85 16 137/66 H 93 05/04/21 02:14 05/04/21 07:00 05/04/21 02:14 05/04/21 02:14 05/04/21 07:55 Oxygen Flow Rate (L/min) 2 Oxygen Delivery Method Nasal Cannula Weight: 91 kg Body Mass Index (BMI) 28.8 Intake & Output: Intake and Output for Last 24 Hours 05/02/21 05/03/21 05/04/21 23:59 23:59 23:59 Intake Total 2919.17 / 3039.17 1003.33 / 1003.33 50 / 50 Output Total 450 / 450 450 / 450 Balance 2919.17 / 3039.17 553.33 / 553.33 -400 / -400 Medical Nutrition Assessment Dietitian: Malnutrition Criteria Met Start: 04/30/21 11:49 Freq: Status: Active Protocol: Document 05/02/21 09:30 AG (Rec: 05/02/21 09:30 AG [id number]) Nutrition Malnutrition Evidence of Malnutrition Exists Yes Malnutrition (severe): Acute Illness/Injury Evidenced By Suboptimal Energy Intake ( Severe),Weight Loss (Severe), Physical Changes (Moderate) Clinical Problem Acute Disease or Injury Related Malnutrition Etiology severe, acute malnutrition r/t inadequate energy intake during COVID illness/acute hospitalizations Signs/Symptoms as evidenced by unintentional wt loss of 5.187kg/5.2% since 03/23/21 noted; 7.6kg/7.7% from 03/23/21-04/29/21; estimated PO intake meeting <50% of estimated energy needs >1 week ; moderate muscle wasting/fat loss per physical exam Status Active Problem Recommendation Dietitian Recommendations/Changes regular diet-texture/ consistency modifications per VENDOR MANAGEMENT SPECIALIST; Glucerna ONS w/ meals when PO diet resumed. Will closely monitor PO intake as diet resumed and adjust ONS as indicated. Lab / Micro Data Attestation: I reviewed the patient's lab results. Result Diagrams: 05/04/21 04:05 05/03/21 03:50 Labs: Laboratory Results - last 24 hr 05/03/21 10:55: POC Glucose 97 05/03/21 13:58: POC Glucose 154 H 05/03/21 17:02: POC Glucose 133 H 05/03/21 19:39: POC Glucose 112 H 05/03/21 21:12: POC Glucose 122 H 05/04/21 04:05: WBC 4.9, RBC 3.13 L, Hgb 8.3 L, Hct 26.1 L, MCV 83.4, MCH 26.5 L , MCHC 31.8 L, RDW Std Deviation 53.6 H, RDW Coeff of Rafael 17.7 H, Plt Count 389, MPV 10.0, Immature Gran % (Auto) 2.000 H, Neut % (Auto) 72.2 H, Lymph % (Auto) 11.9 L, [place] % (Auto) 9.9, Eos % (Auto) 3.6, Baso % (Auto) 0.4, Absolute Neuts (auto) 3.6, Absolute Lymphs (auto) 0.59 L, Nucleated RBC % 0, Differential Comment SCANNED 05/04/21 06:46: POC Glucose 60 L 05/04/21 07:13: POC Glucose 67 L 05/04/21 07:33: POC Glucose 106 Micro: Microbiology 05/01/21 11:52 Blood Culture (Wb) - Right Hand Blood Culture - Preliminary No growth in 48 hours. 05/01/21 11:15 Blood Culture (Wb) - Right Hand Blood Culture - Preliminary No growth in 48 hours. 05/01/21 11:00 Stool Stool Occult Blood (FOREST) - Final Occult Blood Positive 04/29/21 11:30 Blood Culture (Wb) - Arm Right Blood Culture - Preliminary No growth in 48 hours. 04/29/21 11:03 Blood Culture (Wb) - Anticubital Left Blood Culture - Preli minary No growth in 48 hours. 05/01/21 06:30 Urine, Clean Catch Legionella Antigen - Final 05/01/21 06:30 Urine, Clean Catch Streptococcus pneumoniae Antigen (M - F inal 04/29/21 11:30 Nasal Secretion SARS-CoV-2 Antigen (Rapid) - Final Physical Exam Const alert and no apparent distress Constitutional Narrative: Resting comfortably in bed. General Appearance: cooperative HEENT normocephalic, head/scalp atraumatic and moist oral mucous membranes Eyes PERRL and EOMs intact bilaterally Neck supple General: trachea midline Chest inspection of chest normal Resp Auscultation: diminished lung sounds; Negative for rales, rhonchi or wheezes Cardio regular rate and regular rhythm GI normal to inspection, nondistended, normoactive bowel sounds Extremity General Extremity: edema bilateral lower extremity; Negative for clubbing Skin no rashes or lesions noted Neuro CN's II-XII intact bilaterally and no focal motor deficits Psych Mood & Affect: flat affect Charges/Coding Visit Charges Inpatient E&M: 89739 Subs Hosp L2
[2021-05-04] MEDS: Cholecalciferol (VIT D3) 25 MCG TABLET (1,000 UNITS) PO (09:54)
[2021-05-04] MEDS: Aspirin E.C. 81 MG Tablet PO (09:54)
[2021-05-04] MEDS: Escitalopram Oxalate 10 MG Tablet PO (09:54)
[2021-05-04] MEDS: Cyanocobalamin 500 MCG Tablet 1000 MCG PO (09:54)
[2021-05-04] MEDS: Ferrous Sulfate 325 MG Tablet PO (09:54)
[2021-05-04] MEDS: Pantoprazole Sodium 40 MG Tablet PO (09:54)
[2021-05-04] MEDS: Sucralfate 1 GM Tablet PO ×2 (10:02→11:11)
--- NOTE | 2021-05-04 10:58 | DS.PCM_ITS ---
Providers Date of Admission: 04/29/21 Primary Care Physician: Dr. Donna Will MD Consultations 04/29/21 15:34 Consult: Infectious Disease Routine Consulting Provider: Wilberto Villafuerte Reason for Consult: Pneumonia EMERGENT Consult: No MD Notified: Yes Date Notified: 04/30/21 Time Notified: 08:24 Method of Notification: spoke with answering serv Consult: Webbing Weaver / Pulmonary Medicine Routine Consulting Provider: Alexi Roblero Reason for Consult: Acute on chronic respiratory failure EMERGENT Consult: No Notified: Yes Date Notified: 04/29/21 Time Notified: 18:17 Method of Notification: Text 05/01/21 13:23 Consult: Gastroenterology Routine Consulting Provider: [facility] Reason for Consult: Gi Bleed EMERGENT Consult: No Notified: Yes Date Notified: 05/01/21 Time Notified: 13:23 Method of Notification: Text 05/02/21 06:21 Consult: General Surgery Routine Consulting Provider: Wilberto Huerta Reason for Consult: IVC Filter EMERGENT Consult: No Notified: Yes Date Notified: 05/02/21 Time Notified: 06:21 Method of Notification: Verbal Reason For Visit: HYPOXIA Diagnosis Discharge Diagnosis (1) Dyspnea: Status: Acute Code(s): R06.00 - Dyspnea, unspecified Medications at Discharge Home Medications aspirin 81 mg tablet,delayed release 81 mg PO DAILY 09/28/19 cholecalciferol (vitamin D3) 25 mcg (1,000 unit) capsule 25 mcg PO DAILY 07/17/20 nitroglycerin 0.4 mg sublingual tablet 0.4 mg SUBLINGUAL Q5M PRN #30 tab 09/25/20 cyanocobalamin (vitamin B-12) 1,000 mcg capsule 1,000 mcg PO DAILY 01/29/21 albuterol sulfate 2 puff INHALATION Q6H PRN #6.7 g 04/11/21 atorvastatin 40 mg PO QHS 04/21/21 Glucerna 1.2 Anthony 120 ml PO 4X/DAY 04/26/21 ferrous sulfate 325 mg PO BID 04/26/21 metformin 500 mg PO BID 04/26/21 metoprolol tartrate 25 mg PO BID 04/26/21 mirtazapine [Remeron] 7.5 mg PO QHS 04/29/21 polyethylene glycol 3350 [Miralax] 17 g PO DAILY 04/29/21 senna-docusate sodium 1 tab PO DAILY 04/29/21 acetaminophen [Tylenol] 650 mg PO Q6H PRN PRN #0 tab 05/04/21 escitalopram oxalate 10 mg PO DAILY #0 tab 05/04/21 glucagon [GlucaGen Diagnostic Kit] 1 mg IM X1 PRN #0 ea 05/04/21 insulin lispro [Humalog KwikPen Insulin] See Protocol SUBCUT ACHS #0 ml 05/04/21 menthol-zinc oxide [Calmoseptine] 1 applic TOPICAL TID #0 g 05/04/21 pantoprazole 40 mg PO BID #0 tab 05/04/21 sucralfate 1 g PO 1HR_ACHS #0 tab 05/04/21 Hospital Course Summary of Care Provided Minutes Spent on Discharge: 40 Hospital Course: Patient is a 70-year-old gentleman with history of recent COVID-19 pneumonia later complicated by bilateral pulmonary embolism presented to the emergency department with progressive shortness of breath. An assessment of acute on chronic hypoxic respiratory failure made admitted to regular nursing floor for further management 1. Acute on chronic hypoxic respiratory. ?Multifactorial including recent bilateral pulmonary embolism, recent Covid pneumonia with suspected residual pulmonary fibrosis as well as possible aspiration pneumonitis. Patient was started on broad-spectrum antibiotic therapy with vancomycin and Zosyn with consultation placed to pulmonary and ID. Case was discussed with Dr. Singleton with pulmonary medicine plan is for patient to be kept n.p.o. for speech and swallow eval 2. Sepsis ruled in ?05/01/2021 patient has source of infection ~Possible aspiration pneumonia currently hypotensive. Sepsis work-up initiated with lactic acid levels ordered. Patient already on broad-spectrum antibiotic therapy. Cultures were obtained on admission however with patient continued to experience high-grade fever repeat cultures ordered. Patient has already been seen by ID. With patient being hypotensive patient was resuscitated with IV fluids. Plan is to transfer patient to the intensive care unit -05/02/2021. Patient resuscitated with IV fluid did continue with broad-spectrum antibiotic therapy repeat cultures sent -05/03/2021. Patient blood pressure has stabilized 3. Recent bilateral pulmonary embolism COVID induced coagulopathy ?Patient is on Eliquis did continue -05/01/2021; Eliquis held upon suggestion by pulmonary medicine currently on heparin -05/02/2021; bilateral venous duplex obtained today prior did demonstrate Acute deep venous thrombosis left common femoral and posterior tibial veins. Patient was on heparin discontinued in view of associated GI bleed - 05/03/2021; patient underwent inferior venacavogram with transright jugular inferior vena cava filter placement (Teresa filter) by Dr. Wilberto Huerta on 05/02/2021. 4. Anemia Secondary to combination of acute GI bleed as well as anemia of chronic disorder - Secondary to chronic disorder monitoring H&H and transfuse if patient becomes symptomatic or hemoglobin falls below 7.Patient hemoglobin as of 04/30/2021 7.1 repeat H&H ordered for a.m. -05/01/2021. With patient deemed to be symptomatic and order was given for patient to be transfused with 1 unit PRBC in addition iron studies B12 ferritin level and reticulocyte count ordered prior to initiation of transfusion. Also did order stool for guaiac and if positive will consider consultation with GI for possible endoscopic evaluation ?05/02/2021. Patient did develop active GI bleed heparin was discontinued started on Protonix drip consult placed to GI plan is for patient to undergo both upper and lower endoscopy on 05/02/[address] Galeana 05/03/2021 results of EGD and colonoscopy performed the day prior findings and recommendation as below Upper GI endoscopy procedure for Jaydon Quintana Impressions : - Normal esophagus. - Erythematous mucosa in the gastric body. 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 Treated with argon plasma coagulation (APC). 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 Recommendations : - Return patient to hospital [facility] for ongoing care. - Resume previous diet. - Continue present medications. -Carafate 1 g 4 times daily x1 month and Protonix 40 mg twice a day x8 weeks Colonoscopy procedure for Jaydon Quintana Impressions : - Three recently bleeding colonic angiodysplastic lesions. Treated with argon plasma coagulation (APC). - Congested mucosa in the entire examined colon. 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 Recommendations : - Return patient to hospital [facility] for ongoing care. - Resume previous diet. - Continue present medications. - Repeat colonoscopy in 5 years for surveillance. 5. Diabetes mellitus type II -patient's oral hypoglycemics held. Placed on long acting insulin, Accu-Cheks a.c. and at bedtime and covered with sliding scale insulin 6. Rheumatoid arthritis Patient is on rituximab as outpatient. 7. Non Hodgkin's lymphoma ?Apparently in remission 8. Coronary artery disease ?With previous PCI of an LAD RCA and mid circumflex lesions 9. Dyslipidemia ?Per history currently not on any statin therapy 10. Tobacco dependence - Counseled on cessation, offered nicotine patch for tobacco cravings7 11. Physical deconditioning - Requested for PT OT eval and social worker psychiatric to assist with discharge planning 12. Hypertension - Blood pressure controlled, home medications continued with dose adjustment as needed -05/01/2021 patient antihypertensives held in view of his relative low blood pressure 13. DVT prophylaxis - on on heparin - 05/02/2021 Heparin on hold in view of active GI bleed 14. Acute encephalopathy ?Possibly related to #1 however MRI of the brain ordered to rule out a neurological etiology - 15. Severe malnutrition ?As evidenced by suboptimal energy intake severe weight loss and this is related to patient chronic pancreatitis as well as alcoholism. Recommendation as noted above by dietitian 16. Depression ?Patient started on Lexapro Physical Exam Narrative GENERAL: Frail looking HEENT: Atraumatic; EYES; Anicteric, Normal Conjunctiva NECK; supple, normal thyroid, RESPIRATORY: Diminished to auscultation CARDIOVASCULAR: Regular S1 S2, GI: soft, normoactive bowel sounds, : No Renal angle tenderness; EXTREMITIES: No edema, no clubbing, MUSCULOSKELETAL: no muscle wasting NEURO: Awake; no lateralizing signs. SKIN: No Rash PSYCH; Flat affect Medical Records Data Medical Nutrition Assessment Dietitian: Malnutrition Criteria Met Start: 04/30/21 11:49 Freq: Status: Active Protocol: Document 05/02/21 09:30 (Rec: 05/02/21 09:30 [id number]) Nutrition Malnutrition Evidence of Malnutrition Exists Yes Malnutrition (severe): Acute Illness/Injury Evidenced By Suboptimal Energy Intake ( Severe),Weight Loss (Severe), Physical Changes (Moderate) Clinical Problem Acute Disease or Injury Related Malnutrition Etiology severe, acute malnutrition r/t inadequate energy intake during COVID illness/acute hospitalizations Signs/Symptoms as evidenced by unintentional wt loss of 5.187kg/5.2% since 03/23/21 noted; 7.6kg/7.7% from 03/23/21-04/29/21; estimated PO intake meeting <50% of estimated energy needs >1 week ; moderate muscle wasting/fat loss per physical exam Status Active Problem Recommendation Dietitian Recommendations/Changes regular diet-texture/ consistency modifications per RIVET TAPPING MACHINE OPERATOR; Glucerna ONS w/ meals when PO diet resumed. Will closely monitor PO intake as diet resumed and adjust ONS as indicated. Weight / BMI Weight Weight: 91 kg Body Mass Index (BMI) 28.8 ABG / Lab / Microbiology Data Result Diagrams: 05/04/21 04:05 05/03/21 03:50 Laboratory: Laboratory Results - last 24 hr 05/03/21 10:55: POC Glucose 97 05/03/21 13:58: POC Glucose 154 H 05/03/21 17:02: POC Glucose 133 H 05/03/21 19:39: POC Glucose 112 H 05/03/21 21:12: POC Glucose 122 H 05/04/21 04:05: WBC 4.9, RBC 3.13 L, Hgb 8.3 L, Hct 26.1 L, MCV 83.4, MCH 26.5 L , MCHC 31.8 L, RDW Std Deviation 53.6 H, RDW Coeff of Rafael 17.7 H, Plt Count 389, MPV 10.0, Immature Gran % (Auto) 2.000 H, Neut % (Auto) 72.2 H, Lymph % (Auto) 11.9 L, [place] % (Auto) 9.9, Eos % (Auto) 3.6, Baso % (Auto) 0.4, Absolute Neuts (auto) 3.6, Absolute Lymphs (auto) 0.59 L, Nucleated RBC % 0, Differential Comment SCANNED 05/04/21 06:46: POC Glucose 60 L 05/04/21 07:13: POC Glucose 67 L 05/04/21 07:33: POC Glucose 106 Microbiology: Microbiology 05/01/21 11:52 Blood Culture (Wb) - Right Hand Blood Culture - Preliminary No growth in 48 hours. 05/01/21 11:15 Blood Culture (Wb) - Right Hand Blood Culture - Preliminary No growth in 48 hours. 05/01/21 11:00 Stool Stool Occult Blood (FOREST) - Final Occult Blood Positive 04/29/21 11:30 Blood Culture (Wb) - Arm Right Blood Culture - Preliminary No growth in 48 hours. 04/29/21 11:03 Blood Culture (Wb) - Anticubital Left Blood Culture - Preliminary No growth in 48 hours. 05/01/21 06:30 Urine, Clean Catch Legionella Antigen - Final 05/01/21 06:30 Urine, Clean Catch Streptococcus pneumoniae Antigen (M - Final 04/29/21 11:30 Nasal Secretion SARS-CoV-2 Antigen (Rapid) - Final D/C Instructions Discharge Diet: No restrictions Discharge Activity: Return to Normal Activity Call your doctor if you observe: Fever of 101 or Higher, Shortness of breath, Fainting spells and Chest pain Meaningful Use Info Meaningful Use Diagnoses (Choose all that apply): None applicable Discharge Plan Admission Admit Date/Time: 04/29/21 13:50 Attending Provider: Jordan Ortiz Primary Care Provider: Donna Will Consulting Providers: Wilberto Huerta ; Wilberto Villafuerte ; Alexi Roblero Discharge Orders/Prescriptions Prescriptions: New acetaminophen [Tylenol] 325 mg Tablet 650 mg PO Q6H PRN PRN (Reason: Pain Score 1-10/Temp > 100.7 F) Qty: 0 RF: 0 escitalopram oxalate 10 mg Tablet 10 mg PO DAILY Qty: 0 RF: 0 GlucaGen Diagnostic Kit 1 mg/mL Recon Soln 1 mg IM X1 PRN (Reason: Hypoglycemia) Qty: 0 RF: 0 insulin lispro [Humalog KwikPen Insulin] 100 unit/mL Insulin Pen See Protocol unit subcut ACHS Qty: 0 RF: 0 menthol-zinc oxide [Calmoseptine] 0.44-20.6 % Ointment 1 applic topical TID Qty: 0 RF: 0 sucralfate 1 gram Tablet 1 g PO 1HR_ACHS Qty: 0 RF: 0 pantoprazole 40 mg Tablet,Delayed Release (Dr/Ec) 40 mg PO BID Qty: 0 RF: 0 Continued aspirin [Adult Aspirin Regimen] 81 mg tablet,delayed release (DR/EC) 81 mg PO DAILY RF: 0 cholecalciferol (vitamin D3) 25 mcg (1,000 unit) capsule 25 mcg PO DAILY RF: 0 nitroglycerin [Nitrostat] 0.4 mg tablet, sublingual 0.4 mg SUBLINGUAL Q5M PRN (Reason: chest pain) Qty: 30 RF: 0 cyanocobalamin (vitamin B-12) 1,000 mcg capsule 1,000 mcg PO DAILY RF: 0 albuterol sulfate 90 mcg/actuation HFA aerosol inhaler 2 puff inhalation Q6H PRN (Reason: shortness of breath or wheezing) Qty: 6.7 RF: 0 atorvastatin 40 mg tablet 40 mg PO QHS RF: 0 metformin 500 mg tablet 500 mg PO BID RF: 0 ferrous sulfate 325 mg (65 mg iron) tablet 325 mg PO BID RF: 0 metoprolol tartrate 25 mg tablet 25 mg PO BID RF: 0 Glucerna 1.2 Anthony 0.06-1.2 gram-kcal/mL liquid 120 ml PO 4X/DAY RF: 0 polyethylene glycol 3350 [Miralax] 17 gram Powder In Packet 17 g PO DAILY RF: 0 mirtazapine [Remeron] 15 mg Tablet 7.5 mg PO QHS RF: 0 senna-docusate sodium Tablet 1 tab PO DAILY RF: 0 Discontinued glimepiride 2 mg tablet 2 mg PO BID RF: 0 amoxicillin-pot clavulanate 875-125 mg tablet 875 mg PO BIDCM RF: 0 Eliquis 5 mg tablet 10 mg PO BID RF: 0 piperacillin-tazobactam [Zosyn] 3.375 gram Recon Soln 3.375 g IV Q8H RF: 0 vancomycin in 0.9 % sodium chl 1.25 gram/150 mL Solution 125 mg IV Q12H RF: 0 Referrals / Follow Up: Donna Will MD [Primary Care Provider] - Within 2 Weeks Disposition Disposition (needs filled in before D/C Order can be placed): [facility] Facility Charges/Coding Visit Charges Inpatient E&M: 82699 Disch Hosp
[2021-05-04 11:16] LABS: Bedside Glucose 126 mg/dL (74-106)
--- NOTE | 2021-05-04 12:34 | CASEMGMT ---
TYE spoke with patient this am and let him know that his insurance approved him to return to TCU and that he will return today. Plan: d/c back to [facility]CU under skilled level of care. Kesha REESE
--- NOTE | 2021-05-04 12:36 | PCM.PN.ID ---
Physical Exam Narrative Feeling better, no fever Const alert and no apparent distress General Appearance: cooperative Resp normal air movement and clear to auscultation bilaterally Cardio regular rate and regular rhythm GI soft to palpation, non-tender and non-distended Skin no rashes or lesions noted ID ID: Route of nutrition/ use of supplements: [] Nutritional Intake: [] IV Site: [] Ball Catheter: [] Assessment & Plan Assessment/Plan (1) Dyspnea: PLAN: Cxs neg so far, on empiric zosyn. Recent covid, rhinovirus, CAP, and PEs. Has had covid vaccine x3. Pulm following. Possible aspiration. No fever last night, clinically improved. Day 6 of abx. Will stop abx. Fevers have resolved. Will follow as needed
== END 2021-05-04 14:34 | disposition skilled nursing facility (03) | DRG 871 ==
LOC: ED 13:57 → MS3 14:23 → ICU 05-01 11:24 → PCU 05-03 13:23
PROVIDERS: Family Medicine; Internal Medicine Critical Care Medicine; Internal Medicine Gastroenterology; Nurse Practitioner Family; Admitting Provider Internal Medicine; Emergency Provider Emergency Medicine; PCP Internal Medicine; Visit Provider Internal Medicine
PROC: 0DJD8ZZ Inspection of Lower Intestinal Tract, Via Natural or Artificial Opening Endoscopic (ICD-10-PCS; CPT 45378; principal; 2021-05-02 16:25)
DX: A41.9 Sepsis, unspecified organism (principal); J96.21 Acute and chronic respiratory failure with hypoxia; J69.0 Pneumonitis due to inhalation of food and vomit; G93.41 Metabolic encephalopathy; E43 Unspecified severe protein-calorie malnutrition; K31.811 Angiodysplasia of stomach and duodenum with bleeding; K55.21 Angiodysplasia of colon with hemorrhage; I82.412 Acute embolism and thrombosis of left femoral vein; I50.30 Unspecified diastolic (congestive) heart failure; J44.0 Chronic obstructive pulmonary disease with (acute) lower respiratory infection; I82.442 Acute embolism and thrombosis of left tibial vein; K86.1 Other chronic pancreatitis; D62 Acute posthemorrhagic anemia; I11.0 Hypertensive heart disease with heart failure; E11.9 Type 2 diabetes mellitus without complications; J44.9 Chronic obstructive pulmonary disease, unspecified; M06.9 Rheumatoid arthritis, unspecified; D63.1 Anemia in chronic kidney disease; E78.5 Hyperlipidemia, unspecified; I25.10 Atherosclerotic heart disease of native coronary artery without angina pectoris; Z79.01 Long term (current) use of anticoagulants; Z87.891 Personal history of nicotine dependence; U09.9 Post COVID-19 condition, unspecified; Z79.82 Long term (current) use of aspirin; F32.A Depression, unspecified; Z79.899 Other long term (current) drug therapy; Z79.84 Long term (current) use of oral hypoglycemic drugs; Z68.32 Body mass index [BMI] 32.0-32.9, adult; Z85.72 Personal history of non-Hodgkin lymphomas
CPT/HCPCS: 36415; 37191; 70551; 71275; 80048; 80053; 80202; 82274; 82607; 82728; 82962; 83540; 83550; 83605; 83880; 84484; 85014; 85018; 85025; 85045; 85610; 85730; 86850; 86900; 86901; 86920; 86922; 87040; 87070; 87205; 87426; 87449; 87641; 92526; 92610; 93005; 93970; 94640; 94667; 94668; 97162; 97166; 97530; 97535; 97802; 97803; 99251; 99284; 99406; J7030; J7040; J7050; P9016; Q9967; A4216; C1769; C1880; G0463; J1940; J2405; J3490

== ENCOUNTER 2021-05-04 14:46 | Inpatient (IN) | payer MEDICARE, SELFPAY ==
[2021-05-04 14:55] VITALS: BP 136/69; PULSE 82; RESP 18; TEMP 36.3; O2SAT 90; BMI 26.1
--- NOTE | 2021-05-04 15:05 | HP.PCM_ITS ---
HPI - General General Date of Admission: 05/04/21 HPI Narrative 04/29/2021 SAL ALONZO, is a 70 Male who presents to [facility] Emergency Department with shortness of breath. 04/29/2021 EKG sinus tachycardia, nonspecific ST&T wave abnormality, abnormal EKG. TCU resident on 4 liters oxygen for pneumonia, pulmonary embolism, oxygen requirement increased. Cough, fever, yellow sputum. Pulsox 86% on 6 liters oxygen, Non rebreather placed and resident transferred to [facility] ED. Duoneb, IV fluids, Tylenol given. Lactate normal, BNP normal. CTA chest negative pulmonary embolism, but showed atelectasis, pneumonia, pulmonary edema, ARDS, moderate left pleural effusion, left lower lobe atelectasis. Lasix given. 04/29/2021 Admit to Hospital. Acute on chronic respiratory failure. Patient appears dehydrated. Vancomycin, Zosyn given for pneumonia. Continue Mirtazapine for depression, appetite loss. 04/30/2021 Dr. Villafuerte recommended continuing Vancomycin, Zosyn for possible aspiration pneumonia, NPO, speech evaluation. 05/01/2021 Ill, fever 101.5, Hypotension. Transfuse 1 unit PRBC for anemia. IV fluid, transfer to ICU for sepsis, hypotension. 05/02/2021 Active GI bleed, heparin stopped, Pantoprazole drip started. Recommend IVC filter, stop anticoagulation for recent pulmonary embolism. 05/02/2021 Dr. Huerta placed IVC filter. 05/02/2021 Dr. 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 Recommend Pantoprazole 40mg bid, Carafate 1gm 4x/day x 8 weeks total. 05/02/2021 Dr. Galeana colonoscopy showed 3 bleeding angiodysplastic colonic lesions, treated with argon plasma coagulation (APC). 05/03/2021 Blood pressure improved. 05/03/2021 Dr. Villafuerte cultures negative to date, Fever resolved. Stop antibiotics 05/04/2021. 05/04/2021 Vancomycin, Zosyn for pneumonia. Septic shock resolved. Status post IVC filter, stop anticoagulation for pulmonary embolism. 05/04/2021 Admit to TCU with debility, here for rehabilitation, strengthening, prior to discharge home with . PFSH Medical History Allergic rhinitis Arthritis Asthma Atherosclerosis of coronary artery of [place] heart without angina pectoris Bronchitis Cancer Chronic bronchitis Colon polyp COPD (chronic obstructive pulmonary disease) COVID-19 COVID-19 in immunocompromised patient Diabetes Gastritis History of basal cell carcinoma History of diabetes mellitus, type II History of non-Hodgkin's lymphoma History of pilonidal cyst Hyperlipidemia Hypertension Iron deficiency anemia Iron deficiency anemia Lab test negative for COVID-19 virus Nicotine dependence, cigarettes, uncomplicated Non-Hodgkin lymphoma Obesity Pneumonia Pneumonia due to COVID-19 virus Positive colorectal cancer screening using Cologuard test RA (rheumatoid arthritis) Tobacco use URI (upper respiratory infection) 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 complications Home Medications aspirin 81 mg tablet,delayed release 81 mg PO DAILY 09/28/19 [History Last Taken Unknown] cholecalciferol (vitamin D3) 25 mcg (1,000 unit) capsule 25 mcg PO DAILY 07/17/20 [History Last Taken 04/29/21] nitroglycerin 0.4 mg sublingual tablet 0.4 mg SUBLINGUAL Q5M PRN #30 tab 09/25/20 [Rx Last Taken Unknown] cyanocobalamin (vitamin B-12) 1,000 mcg capsule 1,000 mcg PO DAILY 01/29/21 [History Last Taken 04/29/21] albuterol sulfate 2 puff INHALATION Q6H PRN #6.7 g 04/11/21 [Rx Last Taken Unknown] atorvastatin 40 mg PO QHS 04/21/21 [History Last Taken 04/28/21] Glucerna 1.2 Anthony 120 ml PO 4X/DAY 04/26/21 [History Last Taken Unknown] ferrous sulfate 325 mg PO BID 04/26/21 [History Last Taken 04/29/21] metformin 500 mg PO BID 04/26/21 [History Last Taken 04/29/21] metoprolol tartrate 25 mg PO BID 04/26/21 [History Last Taken 04/29/21] mirtazapine [Remeron] 7.5 mg PO QHS 04/29/21 [History Last Taken 04/28/21] polyethylene glycol 3350 [Miralax] 17 g PO DAILY 04/29/21 [History Last Taken 04/29/21] senna-docusate sodium 1 tab PO DAILY 04/29/21 [History Last Taken 04/29/21] acetaminophen [Tylenol] 650 mg PO Q6H PRN PRN #0 tab 05/04/21 [Rx Last Taken Unknown] escitalopram oxalate 10 mg PO DAILY 05/04/21 [History Last Taken Unknown] glucagon [GlucaGen Diagnostic Kit] 1 mg IM X1 PRN #0 ea 05/04/21 [Rx Last Taken Unknown] insulin lispro [Humalog KwikPen Insulin] See Protocol [facility] 05/04/21 [History Last Taken Unknown] menthol-zinc oxide [Calmoseptine] 1 applic TOPICAL TID 05/04/21 [History Last Taken Unknown] pantoprazole 40 mg PO BID 05/04/21 [History Last Taken Unknown] sucralfate 1 g PO 1HR_ACHS 05/04/21 [History Last Taken Unknown] Allergy/AdvReac Type Severity Reaction Status Date / Time famotidine [From Pepcid] AdvReac Intermediate Diarrhea Verified 04/29/21 10:45 levofloxacin [From Levaquin] AdvReac Intermediate dizziness Verified 04/29/21 10:45 Family History Father Arthritis Bleeding disorder Hypertension Kidney disease Cancer Skin Anemia blood clots Emphysema lung Mother Colon cancer Cancer Lung Cancer Diabetes Brother Thyroid disorder Surgical History History of coronary artery stent placement (~10/22/13) History of excision of pilonidal cyst History of thymectomy Hx of lymph node excision Social History household members: spouse Smoking Status: Former smoker second hand exposure: Yes quit status: considering quitting alcohol intake: current alcohol intake frequency: holidays/special occasions only substance use type: does not use caffeine: Yes Type: coffee Number of servings: 3 what type of physical activity do you participate in: none frequency: does not exercise seatbelt use: always ROS Constitutional Constitutional: Denies chills, fever(s) or weight gain ENT HEENT: Denies headache(s), nasal congestion or nasal discharge Cardiovascular Cardiovascular: Denies chest pain or palpitations Respiratory/Chest Respiratory/Chest: Denies cough, excessive phlegm production or shortness of breath with exertion Gastrointestinal Gastrointestinal: Denies abdominal pain, nausea or vomiting Genitourinary Genitourinary: Denies dysuria Musculoskeletal Musculoskeletal: Denies joint pain or joint swelling Integumentary Integumentary: Denies rash or wounds Neurologic Neurologic: Denies focal weakness, numbness or tingling Psychiatric Psychiatric: Denies anxiety, auditory hallucinations, depression, homicidal ideation or suicidal ideation Physical Exam Const alert General Appearance: cooperative HEENT normocephalic Eyes PERRL and EOMs intact bilaterally Neck supple, no JVD and no carotid bruits Resp normal respiratory effort, normal air movement and clear to auscultation bilaterally Cardio regular rate and regular rhythm GI normal to inspection, nondistended, normoactive bowel sounds, non-tender and non-distended Extremity normal capillary refill General Extremity: Negative for edema Skin no rashes or lesions noted General Skin Exam: no breakdown Psych affect normal Appearance: appropriate Assessment & Plan Assessment/Plan (1) Debility: (2) Acute and chronic respiratory failure: (3) Septic shock: (4) Pneumonia: (5) Gastrointestinal bleeding: (6) Acute anemia: (7) Pulmonary embolism: (8) Non Hodgkin's lymphoma: (9) Coronary artery disease: (10) Vitamin D deficiency: (11) Vitamin B12 deficiency: (12) COVID-19: (13) Asthma: (14) Hyperlipidemia: (15) Diabetes mellitus: (16) Appetite loss: (17) Iron deficiency anemia: PLAN: 70 year old male with below past medical history hospitalized for acute on chronic respiratory failure secondary to pneumonia, sepsis, complicated by gastrointestinal bleeding secondary to stomach, colon bleeding, admitted to TCU with debility, here for rehabilitation, strengthening, prior to discharge home with . * Debility - PT/OT. * Pain - Tylenol 1000mg q6h prn pain (1-10). * Bowel - Miralax 17gm daily, Senna/colace 1 tablet bid. * Adult immunization - Administer prevnar 20, fluzone, covid19 vaccine as appropriate. * DVT prophylaxis - HAS-BLED score 3 (high risk for bleeding), Lamin score 9 (high risk for DVT/PE), recent GI bleed/anemia, hold chemoprophylaxis. * Asthma - Albuterol 2 puffs q6h prn. * Coronary artery disease - Metoprolol 25mg bid, Aspirin 81mg daily, NTG 0.4mg q5m prn. * Hyperlipidemia - Atorvastatin 40mg qhs. * Vitamin D deficiency - Vitamin D3 25mcg daily. * Vitamin B12 deficiency - B12 1000mcg daily. * Depression - Lexapro 10mg daily, stable chronic skilled nursing use, GDR not recommended. * Iron deficiency anemia - Ferrous sulfate 325mg bidcm. * Diabetes Mellitus II - Metformin 500mg bid, Glucagon 1mg im x 1 prn hypoglycemia. * Skin irritation - Calmoseptine topical tid. * Appetite loss - Mirtazapine 7.5mg qhs, stable chronic skilled nursing use, GDR not recommended. * Gerd/UGIB - Pantoprazole 40mg bid, Sucralfate 1gm 4x/day.
[2021-05-04 15:42] VITALS: O2SAT 96
[2021-05-04 18:36] VITALS: PULSE 82
[2021-05-04] MEDS: Metoprolol Tartrate 25 MG Tablet PO (18:36)
[2021-05-04] MEDS: Ferrous Sulfate 325 MG Tablet PO (18:36)
[2021-05-04] MEDS: Sucralfate 1 GM Tablet PO ×2 (18:37→21:21)
[2021-05-04] MEDS: metFORMIN HCl 500 MG Tablet PO (18:37)
[2021-05-04] MEDS: Pantoprazole Sodium 40 MG Tablet PO (18:37)
[2021-05-04] MEDS: Glucerna Shake 120 ML LIQUID PO ×2 (18:37→21:23)
[2021-05-04] MEDS: Atorvastatin Calcium 40 MG Tablet PO (21:22)
[2021-05-04] MEDS: Mirtazapine 15 MG Tablet 7.5 MG PO (21:23)
[2021-05-04] MEDS: Menthol/Lanolin/Calamine/Znox 113 GM Tube 1 APPLIC TOPICAL (21:31)
--- NOTE | 2021-05-04 22:05 | NURSING ---
Pt blood sugar is 71, offered pt an HS snack, pt refused, states that is normal for him and it is not low. Will continue to monitor.
[2021-05-04 22:06] LABS: Bedside Glucose 71 mg/dL (74-106)
[2021-05-05 06:34] VITALS: BP 119/61; PULSE 80
[2021-05-05] MEDS: Metoprolol Tartrate 25 MG Tablet PO ×2 (06:34→17:30)
[2021-05-05] MEDS: Pantoprazole Sodium 40 MG Tablet PO ×2 (06:34→17:31)
[2021-05-05] MEDS: Cholecalciferol (VIT D3) 25 MCG TABLET (1,000 UNITS) PO (06:34)
[2021-05-05] MEDS: Sucralfate 1 GM Tablet PO ×4 (06:34→19:59)
[2021-05-05] MEDS: Escitalopram Oxalate 10 MG Tablet PO (06:34)
[2021-05-05] MEDS: Cyanocobalamin 500 MCG Tablet 1000 MCG PO (06:34)
[2021-05-05] MEDS: Menthol/Lanolin/Calamine/Znox 113 GM Tube 1 APPLIC TOPICAL ×3 (06:37→20:30)
[2021-05-05] MEDS: 0.9% Saline Lock 10 ML Syringe IV ×2 (06:37→17:28)
[2021-05-05 07:16] LABS: Bedside Glucose 74 mg/dL (74-106)
[2021-05-05 07:17] LABS: Absolute Lymphocyte Count 0.74 X10^3/uL (0.83-4.51); Absolute Neutrophil Count 3.4 X10^3/uL (2.0-7.7); Basophil# 0.02 X10^3/uL; Basophil% 0.4 % (0-1); Eosinophil# 0.15 X10^3/uL; Hematocrit 27.8 % (40-54); Hemoglobin 8.9 g/dL (13.0-16.5); Lymphocyte # 0.74 X10^3/ul (0.83-4.51); Lymphocyte % 14.8 % (19-41); Mean Corpuscular Hgb 26.5 pg (27.0-32.0); Mean Corpuscular Volume 82.7 fL (80-94); Mean Platelet Vol. 9.4 fl (6.2-12.0); Monocyte# 0.54 X10^3/uL; Monocyte% 10.8 % (0-10); NRBC Flagged by Analyzer 0 % (0-5); Neutrophil # 3.41 X10^3/uL (2.7-7.7); Neutrophil % 68.2 % (47-70); Platelet Count 392 K/mm3 (150-450); RBC Distribution Width CV 17.5 % (11.6-14.6); RBC Distribution Width SD 52.3 fl (35.1-43.9); Red Blood Count 3.36 M/mm3 (4.6-6.2)
[2021-05-05 07:53] LABS: Anion Gap 4 (5-15); BUN 13 mg/dL (7-18); BUN/Creat Ratio 10.8 RATIO (10-20); Calcium,Total 7.5 mg/dL (8.5-10.1); Chloride 117 mmol/L (98-107); EST Glomerular Filtration Rate 63 mL/min (>60); Est Glom Filt Rate - Afr Amer 77 mL/min (>60); Estimated Creatinine Clearance 65.65 ml/min; Glucose 61 mg/dL (74-106); Potassium 3.4 mmol/L (3.5-5.1); Sodium Level 144 mmol/L (136-145)
[2021-05-05] MEDS: Ferrous Sulfate 325 MG Tablet PO ×2 (08:09→17:30)
[2021-05-05] MEDS: Aspirin E.C. 81 MG Tablet PO (08:09)
[2021-05-05 10:00] VITALS: PULSE 89; RESP 18
[2021-05-05] MEDS: Tuberculin,Purif.prot.deriv. 50 TU/ML Vial 0.1 ML ID (10:06)
[2021-05-05 13:42] VITALS: BP 130/65; PULSE 80; RESP 16; TEMP 36.3; O2SAT 94
[2021-05-05 17:30] VITALS: BP 122/70; PULSE 80
[2021-05-05] MEDS: Glucerna Shake 120 ML LIQUID PO ×2 (17:30→19:59)
--- NOTE | 2021-05-05 18:55 | PCA ---
When approached by PUBLICITY DIRECTOR to get washed up for the night patient refused HS care stating I did all that earlier.Im good
[2021-05-05] MEDS: Mirtazapine 15 MG Tablet 7.5 MG PO (19:58)
[2021-05-05] MEDS: Atorvastatin Calcium 40 MG Tablet PO (19:59)
--- NOTE | 2021-05-05 20:12 | NURSING ---
Patient expressed his dislike for taking his medications , especially the Sulcrafate. He wanted to know why he couldn't just have a shot. Some education given on medication, offered support. Will continue to monitor.
[2021-05-05 21:11] LABS: Bedside Glucose 242 mg/dL (74-106)
[2021-05-06] MEDS: Menthol/Lanolin/Calamine/Znox 113 GM Tube 1 APPLIC TOPICAL ×3 (04:56→22:16)
[2021-05-06] MEDS: Glucerna Shake 120 ML LIQUID PO ×3 (04:56→22:16)
[2021-05-06] MEDS: Escitalopram Oxalate 10 MG Tablet PO (04:56)
[2021-05-06] MEDS: Pantoprazole Sodium 40 MG Tablet PO ×2 (04:57→17:52)
[2021-05-06] MEDS: Cyanocobalamin 500 MCG Tablet 1000 MCG PO (04:58)
[2021-05-06] MEDS: Cholecalciferol (VIT D3) 25 MCG TABLET (1,000 UNITS) PO (04:58)
[2021-05-06] MEDS: Senna/Docusate Sodium 1 Tablet PO (04:58)
[2021-05-06 04:59] VITALS: BP 100/49; PULSE 72
[2021-05-06] MEDS: Sucralfate 1 GM Tablet PO ×4 (04:59→22:19)
[2021-05-06 06:26] LABS: Bedside Glucose 150 mg/dL (74-106)
[2021-05-06] MEDS: Ferrous Sulfate 325 MG Tablet PO ×2 (10:36→17:52)
[2021-05-06] MEDS: Aspirin E.C. 81 MG Tablet PO (10:36)
[2021-05-06] MEDS: 0.9% Saline Lock 10 ML Syringe IV (10:38)
[2021-05-06 15:38] VITALS: BP 142/70; PULSE 84; RESP 16; TEMP 37.1; O2SAT 93
[2021-05-06 17:54] VITALS: BP 104/55; PULSE 85
[2021-05-06] MEDS: Metoprolol Tartrate 25 MG Tablet PO (17:54)
[2021-05-06 22:06] LABS: Bedside Glucose 194 mg/dL (74-106)
[2021-05-06] MEDS: Atorvastatin Calcium 40 MG Tablet PO (22:19)
[2021-05-06 22:20] VITALS: O2SAT 93
[2021-05-06] MEDS: Mirtazapine 15 MG Tablet 7.5 MG PO (22:20)
[2021-05-07] MEDS: Menthol/Lanolin/Calamine/Znox 113 GM Tube 1 APPLIC TOPICAL ×2 (04:49→16:20)
[2021-05-07] MEDS: Sucralfate 1 GM Tablet PO ×4 (04:49→20:26)
[2021-05-07] MEDS: Pantoprazole Sodium 40 MG Tablet PO ×2 (04:49→16:23)
[2021-05-07] MEDS: Cholecalciferol (VIT D3) 25 MCG TABLET (1,000 UNITS) PO (04:50)
[2021-05-07] MEDS: Escitalopram Oxalate 10 MG Tablet PO (04:50)
[2021-05-07] MEDS: Cyanocobalamin 500 MCG Tablet 1000 MCG PO (04:50)
[2021-05-07 04:51] VITALS: BP 107/58; PULSE 85
[2021-05-07] MEDS: Glucerna Shake 120 ML LIQUID PO ×2 (04:53→11:44)
[2021-05-07 06:31] LABS: Bedside Glucose 152 mg/dL (74-106)
[2021-05-07] MEDS: Ferrous Sulfate 325 MG Tablet PO ×2 (10:12→16:22)
[2021-05-07] MEDS: Aspirin E.C. 81 MG Tablet PO (10:12)
[2021-05-07] MEDS: Potassium Chloride Oral Tablet 10 MEQ PO (10:12)
[2021-05-07 10:30] VITALS: O2SAT 94
[2021-05-07 13:58] VITALS: PULSE 96; RESP 18; O2SAT 92
[2021-05-07 15:03] VITALS: BP 132/66; PULSE 94; RESP 16; TEMP 36; O2SAT 90
--- NOTE | 2021-05-07 15:44 | CHAPLAIN ---
Type of Pastoral Visit ___ Initial Visit ___ Follow-up Visit ___ On-call Visit ___ General Patient Visit ___ Spiritual Assessment ___ Family Conference ___ Bereavement ___ Rapid Response ___ Code Blue ___ Other (describe below) Pastoral Care Referral From ___ Patient ___ Family ___ Nurse ___ Physician ___ Pediatric Speech Language Pathologist ___ Internal Medicine Nurse Practitioner ___ Other (describe below) Sacrament/Intervention ___ Active listening ___ Anointing ___ Alevism ___ Bereavement ___ Communion ___ Lily exploration ___ ___ Life review ___ Prayer ___ Reconciliation ___ Sacrament of Sick ___ Supportive presence ___ Wedding ___ Other (describe below) Pastoral Comments two attempts to visit today; patient is sound asleep in his chair and does not awaken to has name or knock on the door
--- NOTE | 2021-05-07 15:57 | PHA.CONS1_ITS ---
Progress Note - Pharmacy Subjective: TCU ADMISSION Objective: Allergies famotidine [From Pepcid] Adverse Reaction (Intermediate, Verified 04/29/21 10:45) Diarrhea levofloxacin [From Levaquin] Adverse Reaction (Intermediate, Verified 04/29/21 10:45) dizziness Current Medications Generic Name Dose Route Start Last Admin Trade Name Freq PRN Reason Stop Dose Admin Acetaminophen 1,000 mg 05/04/21 15:36 Acetaminophen 500 Mg Tablet PO Q6H PRN PRN Pain Score 1-10 Albuterol Sulfate 2 puff 05/04/21 15:05 Albuterol Sulfate 8 Gm Inhaler (60 Puffs) INHALATION Q6H PRN shortness of breath or wheezing Aspirin 81 mg 05/05/21 08:00 05/07/21 10:12 Aspirin E.C. 81 Mg Tablet PO 81 mg BREAKFAST AJIT Administration Atorvastatin Calcium 40 mg 05/04/21 22:00 05/06/21 22:19 Atorvastatin Calcium 40 Mg Tablet PO 40 mg QHS AJIT Administration Calamine/Phenol 1 applic 05/04/21 22:00 05/07/21 04:49 Menthol/Lanolin/Calamine/Znox 113 Gm Tube TOPICAL 1 applic TID AJIT Administration Protocol Cholecalciferol 25 mcg 05/05/21 06:00 05/07/21 04:50 Cholecalciferol (Vit D3) 25 Mcg Tablet (1,000 Units) PO 25 mcg DAILY AJIT Administration Cyanocobalamin 1,000 mcg 05/05/21 06:00 05/07/21 04:50 Cyanocobalamin 500 Mcg Tablet PO 1,000 mcg DAILY AJIT Administration Escitalopram Oxalate 10 mg 05/05/21 06:00 05/07/21 04:50 Escitalopram Oxalate 10 Mg Tablet PO 10 mg DAILY AJIT Administration Ferrous Sulfate 325 mg 05/04/21 17:00 05/07/21 10:12 Ferrous Sulfate 325 Mg Tablet PO 325 mg BIDCM AJIT Administration Glucagon 1 mg 05/04/21 15:05 Glucagon 1 Mg/Ml Syringe IM X1 PRN Hypoglycemia Metoprolol Tartrate 25 mg 05/04/21 18:00 05/07/21 04:51 Metoprolol Tartrate 25 Mg Tablet PO Not Given BID AJIT Mirtazapine 7.5 mg 05/04/21 22:00 05/06/21 22:20 Mirtazapine 15 Mg Tablet PO 7.5 mg QHS AJIT Administration Nitroglycerin 0.4 mg 05/04/21 15:29 Nitroglycerin (Inpatient Use) 0.4 Mg Tab.Subl SL Q5M PRN CARDIAC/CHEST PAIN Pantoprazole Sodium 40 mg 05/04/21 18:00 05/07/21 04:49 Pantoprazole Sodium 40 Mg Tablet PO 40 mg BID AJIT Administration Polyethylene Glycol 17 gm 05/04/21 18:00 05/07/21 04:49 Polyethylene Glycol 3350 17 Gm Packet PO Not Given BID AJIT Potassium Chloride 10 meq 05/07/21 08:00 05/07/21 10:12 Potassium Chloride Oral Tablet 10 Meq PO 10 meq 0800 AJIT Administration Senna/Docusate Sodium 1 tablet 05/05/21 06:00 05/07/21 04:50 Senna/Docusate Sodium 1 Tablet PO Not Given DAILY AJIT Sodium Chloride 10 - 40 ml 05/04/21 18:54 05/06/21 10:38 0.9% Saline Lock 10 Ml Syringe IV 10 ml UD PRN Administration SALINE FLUSH Sodium Chloride 10 - 40 ml 05/05/21 06:37 0.9% Saline Lock 10 Ml Syringe IV UD PRN SALINE FLUSH Sucralfate 1 gm 05/04/21 16:00 05/07/21 11:45 Sucralfate 1 Gm Tablet PO 1 gm 1HR_ACHS AJIT Administration Tuberculin PPD 0.1 ml 05/12/21 10:00 Tuberculin,Purif.Prot.Deriv. 50 Tu/Ml Vial ID 05/12/21 10:01 X1 ONE Problem List (Last Reviewed 05/04/21 @ 15:[address] Silas Sinha MD) Iron deficiency anemia (Acute) Appetite loss (Acute) Diabetes mellitus (Acute) Hyperlipidemia (Acute) Asthma (Acute) COVID-19 (Acute) Vitamin B12 deficiency (Acute) Vitamin D deficiency (Acute) Coronary artery disease (Acute) Non Hodgkin's lymphoma (Acute) Pulmonary embolism (Acute) Acute anemia (Acute) Gastrointestinal bleeding (Acute) Pneumonia (Acute) Septic shock (Acute) Acute and chronic respiratory failure (Chronic) Debility (Acute) Vital Signs Temp Pulse Resp BP Pulse Ox 96.8 F L 94 16 132/66 H 90 05/07/21 15:03 05/07/21 15:03 05/07/21 15:03 05/07/21 15:03 05/07/21 15:03 Oxygen Flow Rate (L/min) 2 Oxygen Delivery Method Nasal Cannula Weight: 92.193 kg Body Mass Index (BMI) 26.1 Sodium 144 mmol/L (136-145) 05/05/21 06:58 Potassium 3.4 mmol/L (3.5-5.1) L 05/05/21 06:58 Chloride 117 mmol/L (98-107) H 05/05/21 06:58 Carbon Dioxide 23.0 mmol/L (21.0-32.0) 05/05/21 06:58 Anion Gap 4 (5-15) L 05/05/21 06:58 BUN 13 mg/dL (7-18) 05/05/21 06:58 Creatinine 1.20 mg/dL (0.70-1.30) 05/05/21 06:58 Est GFR (MDRD) Af Amer 77 mL/min (>60) 05/05/21 06:58 Est GFR (MDRD) Non-Af 63 mL/min (>60) 05/05/21 06:58 BUN/Creatinine Ratio 10.8 RATIO (10-20) 05/05/21 06:58 Glucose 61 mg/dL (74-106) L 05/05/21 06:58 Assessment/Plan: 1. Pain: Tylenol 1000mg PO Q6h PRN Pain 1-10. Please continue to monitor for increased/decreased S/S pain, PRN medication usage. 2. CAD/ HLD: Aspirin 81mg PO Daily, Lipitor 40mg PO QHS, Lopressor 25mg PO BID, Nitrostat PRN. Please continue to monitor BP (last 132/66), pulse (last 94), signs/symptoms of bleeding/bruising, lipid panel annually or sooner if clinically indicated. 3. GI Bleed History: Protonix 40mg PO BID, Carafate 1g PO ACHS. Pleas continue to monitor for S/S recurrent GI bleed, administer Carafate at least 1hr prior to mealtime to allow medication to take effect. 4. Iron Deficiency Anemia: Ferrous Sulfate 325mg PO BID. Please continue to monitor H/H (given recent GI bleed), iron studies as clinically indicated. 5. Type II Diabetes: Metformin on hold, Glucagon PRN hypoglycemia> Please contin ue to monitor A1c, blood glucose (last= 62), S/S hypoglycemia. 6. Hypokalemia: KCl 10mEq PO Daily. Please continue to monitor K levels (last 3.4 on 05/05. Medication started d/t this level). Please continue to check potassium regularly and adjust dose as needed based on levels. 7. Asthma: Proair inhaler 2 puffs Q6h PRN. Please continue to monitor for S/S SOB/wheezing, PRN medication usage, heart rate with use. 8. General Wellness: Cholecalciferol 25mcg PO Daily, Cyanocobalamin 1000mcg PO Daily. Please continue to monitor. Psychotropic Medications: 9. Depression: Lexapro 10mg PO daily. Please see note in H/P regarding GDR, thank you. 10. Appetite Loss: Remeron 7.5mg PO QHS. Please see note in H/P regarding GDR, thank you. Unnecessary Medications: Bowel Regimen: Miralax 17g PO BID, Senna/Docusate 1 tab PO Daily. Please consider changing scheduled medications to PRN status. The patient has refused all doses of the Mi ralax and has only taken 1 of 3 scheduled doses of Senna/Docusate, thank you. Date of Note:: 05/07/21
[2021-05-07 16:22] VITALS: PULSE 94
[2021-05-07] MEDS: Metoprolol Tartrate 25 MG Tablet PO (16:22)
[2021-05-07] MEDS: Mirtazapine 15 MG Tablet 7.5 MG PO (20:26)
[2021-05-07] MEDS: Atorvastatin Calcium 40 MG Tablet PO (20:26)
--- NOTE | 2021-05-07 21:50 | NURSING ---
Evening blood sugar 340, pt denies symptoms. notified, new order for Lantus.
[2021-05-07 22:10] LABS: Bedside Glucose 340 mg/dL (74-106)
[2021-05-08] MEDS: Senna/Docusate Sodium 1 Tablet PO (05:31)
[2021-05-08] MEDS: Pantoprazole Sodium 40 MG Tablet PO ×2 (05:31→17:15)
[2021-05-08] MEDS: Escitalopram Oxalate 10 MG Tablet PO (05:31)
[2021-05-08 05:32] VITALS: BP 142/66; PULSE 81
[2021-05-08] MEDS: Cyanocobalamin 500 MCG Tablet 1000 MCG PO (05:32)
[2021-05-08] MEDS: Metoprolol Tartrate 25 MG Tablet PO ×2 (05:32→17:14)
[2021-05-08] MEDS: Sucralfate 1 GM Tablet PO ×4 (05:32→22:12)
[2021-05-08] MEDS: Cholecalciferol (VIT D3) 25 MCG TABLET (1,000 UNITS) PO (05:32)
[2021-05-08 06:44] LABS: Anion Gap 5 (5-15); BUN 12 mg/dL (7-18); BUN/Creat Ratio 12.4 RATIO (10-20); Calcium,Total 7.6 mg/dL (8.5-10.1); Chloride 115 mmol/L (98-107); Creatinine, Serum 0.97 mg/dL (0.70-1.30); EST Glomerular Filtration Rate 81 mL/min (>60); Est Glom Filt Rate - Afr Amer 98 mL/min (>60); Estimated Creatinine Clearance 81.21 ml/min; Glucose 208 mg/dL (74-106); Potassium 3.7 mmol/L (3.5-5.1); Sodium Level 145 mmol/L (136-145)
[2021-05-08 08:02] LABS: Bedside Glucose 204 mg/dL (74-106)
[2021-05-08] MEDS: Aspirin E.C. 81 MG Tablet PO (08:32)
[2021-05-08] MEDS: Potassium Chloride Oral Tablet 10 MEQ PO (08:32)
[2021-05-08] MEDS: Ferrous Sulfate 325 MG Tablet PO ×2 (08:32→17:14)
[2021-05-08] MEDS: metFORMIN HCl 500 MG Tablet PO ×2 (08:32→17:14)
--- NOTE | 2021-05-08 09:20 | CASEMGMT ---
Social Work requesting Palliative referral. Per acute CM note, pt is not in network with [facility], but is in network with [facility]. Referral sent to [facility]. Order entered. Sofiya Marquez, [employer]
--- NOTE | 2021-05-08 09:55 | SP.MBSS_ITS ---
Modified Barium Swallow - Patient Information Study Date: 05/08/21 Study Time: 10:00 Direct Billable Minutes: 120 Total Minutes procedure & reportin Diagnosis: oropharyngeal dysphagia (R13.12) Referring Physician: Silas Sinha Chi Reason for Referral: To objectively assess swallow function and determine presence of aspiration. Medical History: 04/29/2021 SAL ALONZO, is a 70 Male who presents to [facility] Emergency Department with shortness of breath. 04/29/2021 EKG sinus tachycardia, nonspecific ST&T wave abnormality, abnormal EKG. TCU resident on 4 liters oxygen for pneumonia, pulmonary embolism, oxygen requirement increased. Cough, fever, yellow sputum. Pulsox 86% on 6 liters oxygen, Non rebreather placed and resident transferred to [facility] ED. Duoneb, IV fluids, Tylenol given. Lactate normal, BNP normal. CTA chest negative pulmonary embolism, but showed atelectasis, pneumonia, pulmonary edema, ARDS, moderate left pleural effusion, left lower lobe atelectasis. Lasix given. 04/29/2021 Admit to Hospital. Acute on chronic respiratory failure. Patient appears dehydrated. Vancomycin, Zosyn given for pneumonia. Continue Mirtazapine for depression, appetite loss. 04/30/2021 Dr. Villafuerte recommended continuing Vancomycin, Zosyn for possible aspiration pneumonia, NPO, speech evaluation. 05/01/2021 Ill, fever 101.5, Hypotension. Transfuse 1 unit PRBC for anemia. IV fluid, transfer to ICU for sepsis, hypotension. 05/02/2021 Active GI bleed, heparin stopped, Pantoprazole drip started. Recommend IVC filter, stop anticoagulation for recent pulmonary embolism. 05/02/2021 Dr. Huerta placed IVC filter. 05/02/2021 Dr. 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 Recommend Pantoprazole 40mg bid, Carafate 1gm 4x/day x 8 weeks total. 05/02/2021 Dr. Galeana colonoscopy showed 3 bleeding angiodysplastic colonic lesions, treated with argon plasma coagulation (APC). 05/03/2021 Blood pressure improved. 05/03/2021 Dr. Villafuerte cultures negative to date, Fever resolved. Stop antibiotics 05/04/2021. 05/04/2021 Vancomycin, Zosyn for pneumonia. Septic shock resolved. Status post IVC filter, stop anticoagulation for pulmonary embolism. 05/04/2021 Admit to TCU with debility, here for rehabilitation, strengthening, prior to discharge home with . PMHx significant for: Allergic rhinitis Arthritis Asthma Atherosclerosis of coronary artery of council heart without angina pectoris Bronchitis Cancer Chronic bronchitis Colon polyp COPD (chronic obstructive pulmonary disease) COVID-19 COVID-19 in immunocompromised patient Diabetes Gastritis History of basal cell carcinoma History of diabetes mellitus, type II History of non-Hodgkin's lymphoma History of pilonidal cyst Hyperlipidemia Hypertension Iron deficiency anemia Iron deficiency anemia Lab test negative for COVID-19 virus Nicotine dependence, cigarettes, uncomplicated Non-Hodgkin lymphoma Obesity Pneumonia Pneumonia due to COVID-19 virus Positive colorectal cancer screening using Cologuard test RA (rheumatoid arthritis) Tobacco use URI (upper respiratory infection) 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 complications Dentition: Edentulous, Upper Dentures Respiratory Status: Oxygenating on 3L/M nasal cannula - Penetration-Aspiration Scale Penetration-Aspiration Scale: OBJECTIVE ASSESSMENT OF SWALLOW FUNCTION (QUANTITATIVE ? PER TRIAL): PENETRATION / ASPIRATION SCALE (BROOKS): 1 = does not enter airway 2 = enters airway/above vocal folds/ejected 3 = enters airway/above vocal folds/not ejected 4 = enters airway/contacts vocal folds/ejected 5 = enters airway/contacts vocal folds/not ejected 6 = enters airway/below vocal folds/ejected 7 = enters airway/below vocal folds/not ejected despite effort 8 = enters airway/below vocal folds/no effort - Penetration-Aspiration Scale Score Thin Liquid via teaspoon Result: 7= enters airways/below vocal folds/not ejected despite effort Thin Liquid via teaspoon Trial 2 Result: 2= enter airway/above vocal folds/ejected Thin Liquid via small single sip from cup Result: 1= does not enter airway Comment: with cue to take 2nd swallow patient presented with post prandial penetration to the vocal cords Thin Liquid via large single sip from cup Result: 8= enters airway/below vocal folds/no effort Thin Liquid via sequential sips from cup Result: 8= enters airway/below vocal folds/no effort [place] Thick Liquid via large single sip from cup Result: 2= enter airway/above vocal folds/ejected Honey Thick Liquid via large single sip from cup Result: 2= enter airway/above vocal folds/ejected - with post prandial penetration to the vocal cords Pudding Result: 2= enter airway/above vocal folds/ejected Cookie Result: 5= enters airways/contacts vocal folds/not ejected - required cue to swallow with spillage to the vallecula prior to swallow initiation Thin Liquid via single sip from straw Result: 8= enters airway/below vocal folds/no effort Thin Liquid via small single sip from cup Chin tuck Result: 8= enters airway/below vocal folds/no effort - Oral Phase Labial Seal: Escape beyond interlabial space; no extension beyond kathrine border Tongue Control During Bolus Hold: Posterior escape of greater than half of bolus Bolus Preparation/Mastication: Minimal chewing/mashing with majority of bolus unchewed Bolus Transport/Lingual Motion: Slowed tongue motion Oral Residue: Residue collection on oral structures - Pharyngeal Phase Initiation of Pharyngeal Swallow: Bolus head in pyriforms Soft Palate Elevation: No bolus between soft palate and pharyngeal wall Laryngeal Elevation: Partial superior movement thyroid cart/partial apprx aryt- epig petiole Anterior Hyoid Excursion: Partial anterior movement Epiglottic Movement: Partial inversion Laryngeal Vestibule Closure at Height of Swallow: Incomplete; narrow column of air/contrast in laryngeal vestibule Pharyngoesophageal Segment Opening: Parital distension and partial duration; parital obstruction of flow Tongue Base Retraction: Narrow column of contrast between tongue base & post. pharyngeal wall Pharyngeal Residue: Collection of residue within or on pharyngeal structures - Esophageal Phase Esophageal Clearance: Esophageal retention - Diagnosis/Impression Diagnosis: moderate oropharyngeal dysphagia (R13.12) Impression: Oral phase primarily marked by significantly prolonged mastication of regular textures Loree Doone shortbread cookie with verbal cue from ENVIRONMENTAL HEALTH SAFETY MANAGER to swallow. Moderate oral residue present. Pharyngeal phase primarily marked by delayed pharyngeal swallow onset timing resulting in suboptimal bolus location upon swallow onset. This contributed to silent aspiration with larger single and sequential thin liquid trials, thin liquids via straw, and thin liquids with use of a chin tuck in addition to overt aspiration with initial trial of thin liquid via teaspoon. Post prandial penetration the the vocal cords without ejection present following cue to take 2nd hard swallow following thin liquids via small sip from cup and following moderately thick liquid trials. Pharyngeal residue present in moderate amounts and mostly gathering within the valleculae secondary to incomplete epiglottic inversion. Reduced laryngeal elevation and anterior hyoid excursion resulted in poor laryngeal vestibule closure / pressure. Esophageal phase primarily marked by esophageal retention. - Recommendations Diet: Thin Liquids Comment: soft and bite sized textures (IDDSI 6) Compensatory Strategies: Small Bites, Small Sips - one sip at a time, No Straws, Slow Rate, Multiple Swallows - take 2nd dry swallow to clear pharyngeal residue, Alternate bites/solids and sips/liquids, Sitting upright, Remain sitting upright for 30 minutes after PO intake Supervision: 1:1 Close Supervision Recommend Repeat Modified Barium Swallow: TBD Need for Skilled Speech Therapy Services: Yes Education Completed: 1. Described result of evaluation. - Status Active ST Patient: Active - Contact Information [facility] Speech Therapy:: Cony Ha MA, [facility]-ENVIRONMENTAL HEALTH SAFETY MANAGER [address] [address] [email or web address] [email or web address]
[2021-05-08 11:30] VITALS: O2SAT 96
--- NOTE | 2021-05-08 12:12 | ST ---
Spoke with patient and pt's following MBS study to instruct on recommendations for diet and compensatory strategies. Pt states he does not wish to modify his diet to soft and bite sized textures and prefers to stay with regular textures despite education with pt/spouse on patients risk of choking on solid/regular textures.
--- NOTE | 2021-05-08 15:06 | CHAPLAIN ---
Type of Pastoral Visit _x__ Initial Visit ___ Follow-up Visit ___ On-call Visit ___ General Patient Visit ___ Spiritual Assessment ___ Family Conference ___ Bereavement ___ Rapid Response ___ Code Blue ___ Other (describe below) Pastoral Care Referral From _x__ Patient ___ Family ___ Nurse ___ Physician ___ Income Tax Adjuster ___ Curtain Mender ___ Other (describe below) Sacrament/Intervention _x__ Active listening ___ Anointing ___ Alevism ___ Bereavement ___ Communion ___ Lily exploration ___ ___ Life review ___ Prayer ___ Reconciliation ___ Sacrament of Sick ___ Supportive presence ___ Wedding ___ Other (describe below) Pastoral Comments patient just completed his PT and is back in bed; pt states he is 'worn out' now but does answer a few questions; pt does not engage much in conversation other than to support his hope of going home; pt states he has a to help him; no other needs identified
[2021-05-08 15:32] VITALS: BP 128/69; PULSE 76; RESP 15; TEMP 36; O2SAT 91
[2021-05-08] MEDS: Menthol/Lanolin/Calamine/Znox 113 GM Tube 1 APPLIC TOPICAL ×2 (16:17→22:12)
[2021-05-08 17:14] VITALS: BP 138/69; PULSE 77
[2021-05-08 21:51] LABS: Bedside Glucose 167 mg/dL (74-106)
[2021-05-08 22:10] VITALS: PULSE 64; RESP 18; O2SAT 93
[2021-05-08] MEDS: Atorvastatin Calcium 40 MG Tablet PO (22:12)
[2021-05-08] MEDS: Mirtazapine 15 MG Tablet 7.5 MG PO (22:12)
[2021-05-09 06:11] LABS: Bedside Glucose 134 mg/dL (74-106)
[2021-05-09 06:50] VITALS: BP 129/62; PULSE 86
[2021-05-09] MEDS: Cholecalciferol (VIT D3) 25 MCG TABLET (1,000 UNITS) PO (06:50)
[2021-05-09] MEDS: Pantoprazole Sodium 40 MG Tablet PO ×2 (06:50→17:49)
[2021-05-09] MEDS: Escitalopram Oxalate 10 MG Tablet PO (06:50)
[2021-05-09] MEDS: Metoprolol Tartrate 25 MG Tablet PO ×2 (06:50→17:49)
[2021-05-09] MEDS: Sucralfate 1 GM Tablet PO ×4 (06:51→21:28)
[2021-05-09] MEDS: Cyanocobalamin 500 MCG Tablet 1000 MCG PO (06:51)
[2021-05-09] MEDS: Potassium Chloride Oral Tablet 10 MEQ PO (08:39)
[2021-05-09] MEDS: metFORMIN HCl 500 MG Tablet PO ×2 (08:39→17:49)
[2021-05-09] MEDS: Ferrous Sulfate 325 MG Tablet PO ×2 (08:39→17:49)
[2021-05-09] MEDS: Aspirin E.C. 81 MG Tablet PO (08:39)
--- NOTE | 2021-05-09 11:01 | CASEMGMT ---
Social Work IDT met with patient, and son for care plan meeting. Discussed patient's progress in PT/OT/ST and nursing. Pt making progress. Explained [employer] insurance NRD 05/08 and continued stay is not guaranteed with each review. The goal is for pt to return home with with 2 steps to enter. Inquired about the assistance level can provide. states she cannot physically assist pt - she can be SBA-CGA, but not lift him. Broached topic of alternative DC plan. Explained SNF or nonskilled HHC. Pt and family want pt home. states they cannot afford anything out of pocket. Offered Medicaid application and Passport referral. agrees. Explained those programs take time and they still run into staffing challenges. expressed understanding. Explained [facility] accepted pt and will follow pt during stay at and DC. Completed living will and HCPOA with pt - naming as primary and son as secondary. Original and copies provided to and son. Copy placed on chart. Provided with FÁTIMA application. SW to continue to follow. Sofiya Marquez, KITCHEN STEWARD/STEWARDESS CARBON BRUSHER ASSEMBLER
--- NOTE | 2021-05-09 11:05 | NURSING ---
Given carafate, says more pills. Takes with ensure even after instruced to be taken on empty stomach. at bedside. No questions voiced. Will receive Pnuemonia Vaccine today and information sheet given on this.
[2021-05-09 11:12] VITALS: O2SAT 93
[2021-05-09 13:32] VITALS: BP 128/69; PULSE 78; RESP 16; TEMP 36.2; O2SAT 92
[2021-05-09] MEDS: Menthol/Lanolin/Calamine/Znox 113 GM Tube 1 APPLIC TOPICAL ×2 (16:25→21:32)
[2021-05-09 17:49] VITALS: PULSE 96
[2021-05-09] MEDS: Atorvastatin Calcium 40 MG Tablet PO (21:28)
[2021-05-09] MEDS: Mirtazapine 15 MG Tablet 7.5 MG PO (21:28)
[2021-05-09 21:56] LABS: Bedside Glucose 152 mg/dL (74-106)
[2021-05-10 06:08] VITALS: BP 129/63; PULSE 81
[2021-05-10] MEDS: Cholecalciferol (VIT D3) 25 MCG TABLET (1,000 UNITS) PO (06:08)
[2021-05-10] MEDS: Metoprolol Tartrate 25 MG Tablet PO ×2 (06:08→16:57)
[2021-05-10] MEDS: Escitalopram Oxalate 10 MG Tablet PO (06:08)
[2021-05-10] MEDS: Cyanocobalamin 500 MCG Tablet 1000 MCG PO (06:08)
[2021-05-10] MEDS: Pantoprazole Sodium 40 MG Tablet PO ×2 (06:09→16:58)
[2021-05-10] MEDS: Sucralfate 1 GM Tablet PO ×4 (06:09→21:54)
[2021-05-10 08:01] VITALS: O2SAT 96
[2021-05-10] MEDS: Aspirin E.C. 81 MG Tablet PO (08:59)
[2021-05-10] MEDS: metFORMIN HCl 500 MG Tablet PO ×2 (08:59→16:57)
[2021-05-10] MEDS: Ferrous Sulfate 325 MG Tablet PO ×2 (08:59→16:57)
[2021-05-10] MEDS: Potassium Chloride Oral Tablet 10 MEQ PO (08:59)
[2021-05-10] MEDS: Menthol/Lanolin/Calamine/Znox 113 GM Tube 1 APPLIC TOPICAL ×2 (10:55→21:55)
[2021-05-10 15:43] VITALS: BP 127/55; PULSE 107; RESP 18; TEMP 36.3; O2SAT 91
[2021-05-10 16:57] VITALS: BP 127/55; PULSE 107
[2021-05-10 21:26] LABS: Bedside Glucose 136 mg/dL (74-106)
[2021-05-10] MEDS: Atorvastatin Calcium 40 MG Tablet PO (21:54)
[2021-05-10] MEDS: Mirtazapine 15 MG Tablet 7.5 MG PO (21:54)
[2021-05-11 05:04] VITALS: BP 127/62; PULSE 79
[2021-05-11] MEDS: Polyethylene Glycol 3350 17 GM PACKET PO (05:05)
[2021-05-11 05:06] VITALS: PULSE 79
[2021-05-11] MEDS: Metoprolol Tartrate 25 MG Tablet PO ×2 (05:06→16:41)
[2021-05-11] MEDS: Cholecalciferol (VIT D3) 25 MCG TABLET (1,000 UNITS) PO (05:06)
[2021-05-11] MEDS: Pantoprazole Sodium 40 MG Tablet PO ×2 (05:06→16:41)
[2021-05-11] MEDS: Sucralfate 1 GM Tablet PO ×4 (05:06→20:30)
[2021-05-11] MEDS: Senna/Docusate Sodium 1 Tablet PO (05:06)
[2021-05-11] MEDS: Escitalopram Oxalate 10 MG Tablet PO (05:06)
[2021-05-11] MEDS: Cyanocobalamin 500 MCG Tablet 1000 MCG PO (05:10)
[2021-05-11 06:36] LABS: Bedside Glucose 121 mg/dL (74-106)
[2021-05-11] MEDS: Potassium Chloride Oral Tablet 10 MEQ PO (08:22)
[2021-05-11] MEDS: Aspirin E.C. 81 MG Tablet PO (08:22)
[2021-05-11] MEDS: Ferrous Sulfate 325 MG Tablet PO ×2 (08:22→16:41)
[2021-05-11] MEDS: metFORMIN HCl 500 MG Tablet PO ×2 (08:22→16:41)
--- NOTE | 2021-05-11 12:07 | CASEMGMT ---
Social Work BIMS and PHQ-9 completed for MDS assessment. Sofiya Marquez, EKG MONITOR WIRE MESH GATE ASSEMBLER
[2021-05-11 16:41] VITALS: BP 109/61; PULSE 84
[2021-05-11] MEDS: Menthol/Lanolin/Calamine/Znox 113 GM Tube 1 APPLIC TOPICAL ×2 (16:42→20:30)
[2021-05-11 16:45] VITALS: BP 109/61; PULSE 84; RESP 20; TEMP 36.3; O2SAT 95
--- NOTE | 2021-05-11 18:54 | NURSING ---
At 1820 pt was found to be sitting on Bathroom floor in front of shower. Pt was immediately assessed by this nurse. Pt had detached O2 from the wall and was on Room air. A scratch was noted on the right side of back. No other injuries were noted. ROM WNL. NO internal or external rotation of bilateral hips. Resident denies pain or discomfort. Vitals BP 108/55 SpO2 86% RA Pulse 93 PERRAL. Pt oxygen reapplied and SpO2 rechecked and 95% 3l NC. When pt asked what he was doing he stated I was trying to get to the bathroom before i pooped my pants. Floor noted to be dry, clean and free of clutter. Pt had on gripper socks. Call light was within reach. Resident assisted on to toilet with x2 assisted gait belt. Dr. Sinha and updated New orders for Neuro checks for 12hrs. Applied bed/chair alarm, red falling star posted and updated fall risk. Educated pt on importance of using call light and asking for assistants.
[2021-05-11] MEDS: Mirtazapine 15 MG Tablet 7.5 MG PO (20:29)
[2021-05-11] MEDS: Atorvastatin Calcium 40 MG Tablet PO (20:30)
[2021-05-11 20:46] VITALS: BP 104/51; PULSE 83; RESP 16; O2SAT 91
[2021-05-11 21:40] LABS: Bedside Glucose 159 mg/dL (74-106)
[2021-05-12] VITALS (7 sets, daily range): BP systolic 111–138; BP diastolic 62–65; PULSE 75–90; RESP 16–18; TEMP 31.9–36.5; O2SAT 91–97
[2021-05-12] MEDS: Cholecalciferol (VIT D3) 25 MCG TABLET (1,000 UNITS) PO (06:04)
[2021-05-12] MEDS: Pantoprazole Sodium 40 MG Tablet PO ×2 (06:04→15:58)
[2021-05-12] MEDS: Escitalopram Oxalate 10 MG Tablet PO (06:05)
[2021-05-12] MEDS: Menthol/Lanolin/Calamine/Znox 113 GM Tube 1 APPLIC TOPICAL ×3 (06:05→21:49)
[2021-05-12] MEDS: Cyanocobalamin 500 MCG Tablet 1000 MCG PO (06:05)
[2021-05-12] MEDS: Sucralfate 1 GM Tablet PO ×4 (06:05→21:51)
[2021-05-12] MEDS: Metoprolol Tartrate 25 MG Tablet PO ×2 (06:05→15:57)
[2021-05-12 06:31] LABS: Bedside Glucose 114 mg/dL (74-106)
[2021-05-12 06:35] LABS: Hematocrit 29.2 % (40-54); Hemoglobin 9.5 g/dL (13.0-16.5); Mean Corp Hgb Conc 32.5 g/dL (32-36); Mean Platelet Vol. 10.2 fl (6.2-12.0); POSITIVE COUNT YES; POSITIVE MORPHOLOGY YES; Platelet Count 443 K/mm3 (150-450); RBC Distribution Width CV 17.8 % (11.6-14.6); RBC Distribution Width SD 52.5 fl (35.1-43.9); Red Blood Count 3.52 M/mm3 (4.6-6.2); White Blood Count 6.7 K/mm3 (4.4-11.0)
[2021-05-12 06:38] LABS: Differential Indicated MANUAL DIFF
[2021-05-12 06:50] LABS: Total Cells Counted 100 (MANUAL DIFF)
[2021-05-12 06:54] LABS: Eosinophil 3 % (0-5); Lymphocyte 16 % (19-41); Metamyelocyte 4 % (0-1); Monocyte 10 % (0-10); Myelocyte 4 % (0-0); Neutrophil-Band 2 % (0-5); Neutrophil-Segmented 61 % (47-70); Platelet Estimate ADEQUATE (ADEQ)
[2021-05-12 06:55] LABS: Anisocytosis 1+; Microcytosis 1+
[2021-05-12 06:56] LABS: Absolute Lymphocyte Count 1.07 X10^3/uL (0.83-4.51); Absolute Neutrophil Count 4.2 X10^3/uL (2.0-7.7); Lymphocyte # 1.07 X10^3/ul (0.83-4.51); Neutrophil # 4.21 X10^3/uL (2.7-7.7)
[2021-05-12 07:01] LABS: Anion Gap 4 (5-15); BUN 16 mg/dL (7-18); BUN/Creat Ratio 13.8 RATIO (10-20); Calcium,Total 8.2 mg/dL (8.5-10.1); Chloride 112 mmol/L (98-107); Creatinine, Serum 1.16 mg/dL (0.70-1.30); EST Glomerular Filtration Rate 66 mL/min (>60); Est Glom Filt Rate - Afr Amer 80 mL/min (>60); Estimated Creatinine Clearance 67.91 ml/min; Glucose 112 mg/dL (74-106); Potassium 3.8 mmol/L (3.5-5.1); Sodium Level 142 mmol/L (136-145)
[2021-05-12] MEDS: Ferrous Sulfate 325 MG Tablet PO ×2 (09:00→15:57)
[2021-05-12] MEDS: Potassium Chloride Oral Tablet 10 MEQ PO (09:00)
[2021-05-12] MEDS: metFORMIN HCl 500 MG Tablet PO ×2 (09:00→15:57)
[2021-05-12] MEDS: Aspirin E.C. 81 MG Tablet PO (09:00)
[2021-05-12] MEDS: Tuberculin,Purif.prot.deriv. 50 TU/ML Vial 0.1 ML ID (10:52)
[2021-05-12 21:21] LABS: Bedside Glucose 142 mg/dL (74-106)
[2021-05-12] MEDS: Atorvastatin Calcium 40 MG Tablet PO (21:51)
[2021-05-12] MEDS: Mirtazapine 15 MG Tablet 7.5 MG PO (21:51)
[2021-05-13] MEDS: Menthol/Lanolin/Calamine/Znox 113 GM Tube 1 APPLIC TOPICAL ×3 (06:14→21:34)
[2021-05-13] MEDS: Polyethylene Glycol 3350 17 GM PACKET PO (06:15)
[2021-05-13 06:17] VITALS: BP 121/63; PULSE 74
[2021-05-13] MEDS: Cyanocobalamin 500 MCG Tablet 1000 MCG PO (06:17)
[2021-05-13] MEDS: Cholecalciferol (VIT D3) 25 MCG TABLET (1,000 UNITS) PO (06:17)
[2021-05-13] MEDS: Metoprolol Tartrate 25 MG Tablet PO ×2 (06:17→17:27)
[2021-05-13] MEDS: Sucralfate 1 GM Tablet PO ×4 (06:17→21:33)
[2021-05-13] MEDS: Senna/Docusate Sodium 1 Tablet PO (06:17)
[2021-05-13] MEDS: Pantoprazole Sodium 40 MG Tablet PO ×2 (06:17→17:27)
[2021-05-13] MEDS: Escitalopram Oxalate 10 MG Tablet PO (06:17)
[2021-05-13 06:26] LABS: Bedside Glucose 122 mg/dL (74-106)
[2021-05-13] MEDS: Aspirin E.C. 81 MG Tablet PO (09:00)
[2021-05-13] MEDS: metFORMIN HCl 500 MG Tablet PO ×2 (09:00→17:27)
[2021-05-13] MEDS: Ferrous Sulfate 325 MG Tablet PO ×2 (09:00→17:26)
[2021-05-13] MEDS: Potassium Chloride Oral Tablet 10 MEQ PO (09:00)
[2021-05-13 13:51] VITALS: BP 137/62; PULSE 77; RESP 18; TEMP 36.2; O2SAT 95
[2021-05-13 13:53] VITALS: PULSE 75; RESP 18
[2021-05-13 17:27] VITALS: PULSE 75
[2021-05-13] MEDS: Mirtazapine 15 MG Tablet 7.5 MG PO (21:34)
[2021-05-13] MEDS: Atorvastatin Calcium 40 MG Tablet PO (21:34)
[2021-05-13 21:41] LABS: Bedside Glucose 119 mg/dL (74-106)
[2021-05-14] MEDS: Pantoprazole Sodium 40 MG Tablet PO ×2 (05:43→18:18)
[2021-05-14] MEDS: Cholecalciferol (VIT D3) 25 MCG TABLET (1,000 UNITS) PO (05:43)
[2021-05-14 05:44] VITALS: BP 125/66; PULSE 80
[2021-05-14] MEDS: Menthol/Lanolin/Calamine/Znox 113 GM Tube 1 APPLIC TOPICAL ×3 (05:44→19:46)
[2021-05-14] MEDS: Metoprolol Tartrate 25 MG Tablet PO ×2 (05:44→18:18)
[2021-05-14] MEDS: Cyanocobalamin 500 MCG Tablet 1000 MCG PO (05:44)
[2021-05-14] MEDS: Escitalopram Oxalate 10 MG Tablet PO (05:44)
[2021-05-14] MEDS: Senna/Docusate Sodium 1 Tablet PO (05:45)
[2021-05-14] MEDS: Polyethylene Glycol 3350 17 GM PACKET PO (05:45)
[2021-05-14] MEDS: Sucralfate 1 GM Tablet PO ×4 (05:53→19:42)
[2021-05-14 06:31] LABS: Bedside Glucose 112 mg/dL (74-106)
[2021-05-14] MEDS: Potassium Chloride Oral Tablet 10 MEQ PO (08:32)
[2021-05-14] MEDS: metFORMIN HCl 500 MG Tablet PO ×2 (08:33→18:16)
[2021-05-14] MEDS: Aspirin E.C. 81 MG Tablet PO (08:33)
[2021-05-14] MEDS: Ferrous Sulfate 325 MG Tablet PO ×2 (08:33→18:17)
[2021-05-14 10:07] VITALS: O2SAT 94
--- NOTE | 2021-05-14 10:44 | NURSING ---
Front Desk Representative Note: MDS section F completed by resident interview.
--- NOTE | 2021-05-14 14:36 | CASEMGMT ---
Addendum entered by Sofiya Marquez 05/14/21 16:27: presented in this worker's office. stated she spoke further with family and want to try taking pt home first. requesting DC home Sunday 05/21, to allow time to get things ready for him. Explained SW can request DC date but insurance does not have to agree and it can be sooner. expressed understanding. requesting hospital bed, 3-in-1 commode and [facility]. SW validated respecting pt's wishes of being home and SW can order DME and HHC. Encouraged to be present for PT session tomorrow. agreeable. Coordinated with TRANSPORT COMPANY MANAGER. inquired if she still needed to complete FÁTIMA application. Encouraged to complete because pt can still receive community resources if eligible. agreed. Referral made to [facility] PT/OT/ST/SN/TORRE/SW. [place] [facility] [place]. Updated [place]. Original Note: Social Work Contacted to inquire about DC plans as insurance update is tomorrow and may issue a DC date. upset as she was at pt's therapy session this morning and he was so fatigued after his shower, he needed at x2 assist. stated she cannot care for pt at that level and he needs more time to rehab. Reiterated insurance can issue a DC date at any time, regardless of recommendation by Dr or IDT. continued being upset. Validated feelings. Inquired about completing FÁTIMA robbie. unsure of request. Explained the FÁTIMA robbie. this worker provided to her last week at the care plan meeting. found application and stated she would complete it today/tomorrow to provide to this worker to submit. Explained pt will need FÁTIMA pending number to admit to SNF, and even then SNFs can request 30 days of payment up front, which pt/ does not have, per . Inquired about SNF choices. states her DIL works at [place] and would like pt to DC there. SW made referral to [place], but encouraged more choices in case they cannot accept. expressed understanding. SW to continue to follow. Sofiya Marquez, BUCKET PUSHER DUPLICATION SPECIALIST
[2021-05-14 14:38] LABS: Pathologist Review Reviewed
[2021-05-14 14:40] VITALS: BP 108/58; PULSE 80; RESP 12; TEMP 36.3; O2SAT 95
[2021-05-14 18:18] VITALS: BP 124/51; PULSE 74
[2021-05-14] MEDS: Mirtazapine 15 MG Tablet 7.5 MG PO (19:42)
[2021-05-14 20:14] VITALS: PULSE 74; RESP 18
[2021-05-14 21:41] LABS: Bedside Glucose 175 mg/dL (74-106)
[2021-05-15] MEDS: Polyethylene Glycol 3350 17 GM PACKET PO (06:11)
[2021-05-15] MEDS: Pantoprazole Sodium 40 MG Tablet PO ×2 (06:13→17:10)
[2021-05-15] MEDS: Cholecalciferol (VIT D3) 25 MCG TABLET (1,000 UNITS) PO (06:13)
[2021-05-15] MEDS: Senna/Docusate Sodium 1 Tablet PO (06:13)
[2021-05-15 06:14] VITALS: BP 119/58; PULSE 75
[2021-05-15] MEDS: Cyanocobalamin 500 MCG Tablet 1000 MCG PO (06:14)
[2021-05-15] MEDS: Sucralfate 1 GM Tablet PO ×4 (06:14→21:35)
[2021-05-15] MEDS: Escitalopram Oxalate 10 MG Tablet PO (06:14)
[2021-05-15] MEDS: Metoprolol Tartrate 25 MG Tablet PO ×2 (06:14→17:10)
[2021-05-15] MEDS: Menthol/Lanolin/Calamine/Znox 113 GM Tube 1 APPLIC TOPICAL ×3 (06:15→21:34)
[2021-05-15 06:36] LABS: Bedside Glucose 113 mg/dL (74-106)
[2021-05-15] MEDS: Potassium Chloride Oral Tablet 10 MEQ PO (07:59)
[2021-05-15] MEDS: Aspirin E.C. 81 MG Tablet PO (07:59)
[2021-05-15] MEDS: metFORMIN HCl 500 MG Tablet PO ×2 (08:00→17:10)
[2021-05-15] MEDS: Ferrous Sulfate 325 MG Tablet PO ×2 (08:00→17:10)
--- NOTE | 2021-05-15 09:43 | CASEMGMT ---
Social Work completed Medicaid application and provided to this worker. Faxed to [facility] for community FÁTIMA and returned to . COURTNEY MujicaW
[2021-05-15 10:00] VITALS: PULSE 87; RESP 18; O2SAT 93
[2021-05-15 12:25] VITALS: O2SAT 96
--- NOTE | 2021-05-15 12:58 | CASEMGMT ---
Addendum entered by Sofiya Marquez 05/16/21 11:37: Added ST order to [facility]. Original Note: Social Work Insurance issued LCD 05/17, DC 05/18. Spoke with and pt on DC date. Both agreeable. Notified [facility] and [employer]. to transport. Plan: DC home with 05/18, [facility] PT/OT/SN/TRORE/SW, hospital bed, BSC Sofiya Marquez, CONTINUOUS IMPROVEMENT COACH HEEL TOP LIFT SPLITTER
[2021-05-15 14:07] VITALS: BP 106/55; PULSE 72; RESP 18; TEMP 36.5; O2SAT 94
[2021-05-15 17:10] VITALS: BP 115/64; PULSE 74
[2021-05-15] MEDS: Atorvastatin Calcium 40 MG Tablet PO (21:35)
[2021-05-15] MEDS: Mirtazapine 15 MG Tablet 7.5 MG PO (21:35)
[2021-05-15 21:56] LABS: Bedside Glucose 152 mg/dL (74-106)
[2021-05-16] MEDS: Menthol/Lanolin/Calamine/Znox 113 GM Tube 1 APPLIC TOPICAL ×2 (06:21→21:32)
[2021-05-16 06:22] VITALS: BP 146/71; PULSE 74
[2021-05-16] MEDS: Cholecalciferol (VIT D3) 25 MCG TABLET (1,000 UNITS) PO (06:22)
[2021-05-16] MEDS: Sucralfate 1 GM Tablet PO ×4 (06:22→21:31)
[2021-05-16] MEDS: Escitalopram Oxalate 10 MG Tablet PO (06:22)
[2021-05-16] MEDS: Senna/Docusate Sodium 1 Tablet PO (06:22)
[2021-05-16] MEDS: Cyanocobalamin 500 MCG Tablet 1000 MCG PO (06:22)
[2021-05-16] MEDS: Metoprolol Tartrate 25 MG Tablet PO ×2 (06:22→17:27)
[2021-05-16] MEDS: Pantoprazole Sodium 40 MG Tablet PO ×2 (06:22→17:28)
[2021-05-16] MEDS: Polyethylene Glycol 3350 17 GM PACKET PO (06:23)
[2021-05-16 06:26] LABS: Bedside Glucose 104 mg/dL (74-106)
[2021-05-16 07:21] VITALS: O2SAT 92
[2021-05-16] MEDS: Potassium Chloride Oral Tablet 10 MEQ PO (08:13)
[2021-05-16] MEDS: Aspirin E.C. 81 MG Tablet PO (08:13)
[2021-05-16] MEDS: Ferrous Sulfate 325 MG Tablet PO ×2 (08:13→17:27)
[2021-05-16] MEDS: metFORMIN HCl 500 MG Tablet PO ×2 (08:13→17:27)
--- NOTE | 2021-05-16 09:29 | CASEMGMT ---
Social Work Received Medicaid pending number #[id number] and will make online Passport referral for pt. COURTNEY MujicaW
--- NOTE | 2021-05-16 13:32 | MDS.RN ---
Information for the mds was obtained from review of the clinical record, interview of resident, staff, and direct observation of resident's care.
[2021-05-16 15:34] VITALS: BP 104/56; PULSE 75; RESP 21; TEMP 36.2; O2SAT 94
[2021-05-16 17:27] VITALS: PULSE 75
[2021-05-16 20:03] VITALS: PULSE 67; RESP 16; O2SAT 92
--- NOTE | 2021-05-16 20:22 | PCM.DC.SUM ---
Providers Date of Admission: 05/04/21 Primary Care Physician: Dr. Donna Will MD Reason For Visit: HYPOXIA Diagnosis Discharge Diagnosis (1) Debility: Status: Acute Code(s): R53.81 - Other malaise (2) Acute and chronic respiratory failure: Status: Chronic Code(s): J96.20 - Acute and chronic respiratory failure, unspecified whether with hypoxia or hypercapnia (3) Septic shock: Status: Acute Code(s): A41.9 - Sepsis, unspecified organism; R65.21 - Severe sepsis with septic shock (4) Pneumonia: Status: Acute Code(s): J18.9 - Pneumonia, unspecified organism (5) Gastrointestinal bleeding: Status: Acute Code(s): K92.2 - Gastrointestinal hemorrhage, unspecified (6) Acute anemia: Status: Acute Code(s): D64.9 - Anemia, unspecified (7) Pulmonary embolism: Status: Acute Code(s): I26.99 - Other pulmonary embolism without acute cor pulmonale (8) Non Hodgkin's lymphoma: Status: Acute Code(s): C85.90 - Non-Hodgkin lymphoma, unspecified, unspecified site (9) Coronary artery disease: Status: Acute Code(s): I25.10 - Atherosclerotic heart disease of telida coronary artery without angina pectoris (10) Vitamin D deficiency: Status: Acute Code(s): E55.9 - Vitamin D deficiency, unspecified (11) Vitamin B12 deficiency: Status: Acute Code(s): E53.8 - Deficiency of other specified B group vitamins (12) COVID-19: Status: Acute Code(s): U07.1 - COVID-19 (13) Asthma: Status: Acute Code(s): J45.909 - Unspecified asthma, uncomplicated (14) Hyperlipidemia: Status: Acute Code(s): E78.5 - Hyperlipidemia, unspecified (15) Diabetes mellitus: Status: Acute Code(s): E11.9 - Type 2 diabetes mellitus without complications (16) Appetite loss: Status: Acute Code(s): R63.0 - Anorexia (17) Iron deficiency anemia: Status: Acute Code(s): D50.9 - Iron deficiency anemia, unspecified Medications at Discharge Home Medications aspirin 81 mg tablet,delayed release 81 mg PO DAILY 09/28/19 cholecalciferol (vitamin D3) 25 mcg (1,000 unit) capsule 25 mcg PO DAILY 07/17/20 nitroglycerin 0.4 mg sublingual tablet 0.4 mg SUBLINGUAL Q5M PRN #30 tab 09/25/20 cyanocobalamin (vitamin B-12) 1,000 mcg capsule 1,000 mcg PO DAILY 01/29/21 ferrous sulfate 325 mg PO BID 04/26/21 metoprolol tartrate 25 mg PO BID 04/26/21 acetaminophen 1,000 mg PO Q6H PRN PRN #0 tab 05/16/21 atorvastatin 40 mg PO QHS 30 Days #30 tab 05/16/21 escitalopram oxalate 10 mg PO DAILY 30 Days #30 tab 05/16/21 metformin 500 mg PO BIDCM #0 tab 05/16/21 mirtazapine [Remeron] 7.5 mg PO QHS 30 Days #30 tab 05/16/21 pantoprazole 40 mg PO BID 30 Days #60 tab 05/16/21 potassium chloride 10 meq PO 0800 30 Days #30 tab 05/16/21 sucralfate 1 g PO 1HR_ACHS 30 Days #120 tab 05/16/21 Hospital Course Operations None Procedures Colonoscopy and EGD Summary of Care Provided Minutes Spent on Discharge: 35 Hospital Course: 70 year old male with below past medical history hospitalized for acute on chronic respiratory failure secondary to pneumonia, sepsis, complicated by gastrointestinal bleeding secondary to stomach, colon bleeding, admitted to TCU with debility, here for rehabilitation, strengthening, prior to discharge home with . Discharge home with 05/18/2021, [facility] PT/OT/SN/TORRE/SW, Hospital Bed, Beside Commode. Physical Exam Const alert General Appearance: cooperative HEENT normocephalic Eyes PERRL and EOMs intact bilaterally Neck supple, no JVD and no carotid bruits Resp normal respiratory effort, normal air movement and clear to auscultation bilaterally Cardio regular rate and regular rhythm GI normal to inspection, nondistended, normoactive bowel sounds, non-tender and non-distended Extremity normal capillary refill General Extremity: Negative for edema Skin no rashes or lesions noted General Skin Exam: no breakdown Psych affect normal Appearance: appropriate Medical Records Data Medical Nutrition Assessment Dietitian: Malnutrition Criteria Met Start: 05/07/21 12:59 Freq: Status: Active Protocol: Document 03/14/22 12:59 YUKI (Rec: 05/07/21 12:59 [facility] [id number]) Nutrition Malnutrition Evidence of Malnutrition Exists Yes Malnutrition (moderate): Acute Illness/Injury Evidenced By Weight Loss (Severe),Physical Changes (Moderate) Clinical Problem Acute Disease or Injury Related Malnutrition Etiology related to covid 19 02/2021 and difficulty consuming adequate nutrition to meet est nutritional needs Signs/Symptoms as evidenced by 13.7% wt loss x 2 months, decreased appetite , a fat/muscle in face and in arms/acromion areas Status Active Problem Recommendation Dietitian Recommendations/Changes Will continue liberal regular diet d/t sign/symptoms of malnutrition Will change meals to small portions per res request Will d/c glucerna shake at medpass and meals - substitute w/ chocolate ensure enlive at meals only per res request Weight / BMI Weight Weight: 87.679 kg Body Mass Index (BMI) 26.1 ABG / Lab / Microbiology Data Result Diagrams: 05/12/21 06:15 05/12/21 06:15 Laboratory: Laboratory Results - last 24 hr 05/15/21 21:53: POC Glucose 152 H 05/16/21 06:22: POC Glucose 104 D/C Instructions Discharge Diet: No restrictions Discharge Activity: Return to Normal Activity, May Shower and Use Walker Weight Bearing Status: Weight bearing as tolerated Call your doctor if you observe: Fever of 101 or Higher, Inability to urinate, Inability to have a bowel movement, Shortness of breath, Dizziness, Fainting spells, Swelling in the ankles, Chest pain and Uncontrolled pain Additional Instructions: Discharge home with 05/18/2021, [facility] PT/OT/SN/TORRE/SW, Hospital Bed, Beside Commode. Meaningful Use Info Meaningful Use Diagnoses (Choose all that apply): None applicable Discharge Plan Admission Admit Date/Time: 05/04/21 14:46 Primary Reason for Your Visit: Debility. Attending Provider: Silas Sinha Chi Primary Care Provider: Donna Will Instructions Additional Instructions / Restrictions: Discharge home with 05/18/2021, [facility] PT/OT/SN/TORRE/SW, Hospital Bed, Beside Commode. Discharge Orders/Prescriptions Prescriptions: New acetaminophen 500 mg Tablet 1,000 mg PO Q6H PRN PRN (Reason: Pain Score 1-10) Qty: 0 RF: 0 metformin 500 mg Tablet 500 mg PO BIDCM Qty: 0 RF: 0 potassium chloride 10 mEq Tablet,Er Particles/Crystals 10 meq PO 0800 30 Days Qty: 30 RF: 0 Continued aspirin [Adult Aspirin Regimen] 81 mg tablet,delayed release (DR/EC) 81 mg PO DAILY RF: 0 cholecalciferol (vitamin D3) 25 mcg (1,000 unit) capsule 25 mcg PO DAILY RF: 0 nitroglycerin [Nitrostat] 0.4 mg tablet, sublingual 0.4 mg SUBLINGUAL Q5M PRN (Reason: chest pain) Qty: 30 RF: 0 cyanocobalamin (vitamin B-12) 1,000 mcg capsule 1,000 mcg PO DAILY RF: 0 ferrous sulfate 325 mg (65 mg iron) tablet 325 mg PO BID RF: 0 metoprolol tartrate 25 mg tablet 25 mg PO BID RF: 0 atorvastatin 40 mg tablet 40 mg PO QHS 30 Days Qty: 30 RF: 0 sucralfate 1 gram tablet 1 g PO 1HR_ACHS 30 Days Qty: 120 RF: 0 pantoprazole 40 mg tablet,delayed release (DR/EC) 40 mg PO BID 30 Days Qty: 60 RF: 0 mirtazapine [Remeron] 15 mg Tablet 7.5 mg PO QHS 30 Days Qty: 30 RF: 0 escitalopram oxalate 10 mg tablet 10 mg PO DAILY 30 Days Qty: 30 RF: 0 Discontinued albuterol sulfate 90 mcg/actuation HFA aerosol inhaler 2 puff inhalation Q6H PRN (Reason: shortness of breath or wheezing) Qty: 6.7 RF: 0 metformin 500 mg tablet 500 mg PO BID RF: 0 Glucerna 1.2 Anthony 0.06-1.2 gram-kcal/mL liquid 120 ml PO 4X/DAY RF: 0 polyethylene glycol 3350 [Miralax] 17 gram Powder In Packet 17 g PO DAILY RF: 0 senna-docusate sodium Tablet 1 tab PO DAILY RF: 0 acetaminophen [Tylenol] 325 mg Tablet 650 mg PO Q6H PRN PRN (Reason: Pain Score 1-10/Temp > 100.7 F) Qty: 0 RF: 0 GlucaGen Diagnostic Kit 1 mg/mL Recon Soln 1 mg IM X1 PRN (Reason: Hypoglycemia) Qty: 0 RF: 0 insulin lispro [Humalog KwikPen Insulin] 100 unit/mL insulin pen See Protocol unit subcut ACHS RF: 0 menthol-zinc oxide [Calmoseptine] 0.44-20.6 % ointment 1 applic topical TID RF: 0 Referrals / Follow Up: Donna Will MD [Primary Care Provider] - Disposition Disposition (needs filled in before D/C Order can be placed): Home Health Service
[2021-05-16] MEDS: Mirtazapine 15 MG Tablet 7.5 MG PO (21:32)
[2021-05-16] MEDS: Atorvastatin Calcium 40 MG Tablet PO (21:32)
[2021-05-16 21:56] LABS: Bedside Glucose 151 mg/dL (74-106)
[2021-05-17] MEDS: Cyanocobalamin 500 MCG Tablet 1000 MCG PO (04:59)
[2021-05-17] MEDS: Cholecalciferol (VIT D3) 25 MCG TABLET (1,000 UNITS) PO (04:59)
[2021-05-17] MEDS: Escitalopram Oxalate 10 MG Tablet PO (04:59)
[2021-05-17] MEDS: Polyethylene Glycol 3350 17 GM PACKET PO (04:59)
[2021-05-17] MEDS: Senna/Docusate Sodium 1 Tablet PO (05:00)
[2021-05-17] MEDS: Menthol/Lanolin/Calamine/Znox 113 GM Tube 1 APPLIC TOPICAL ×3 (05:00→20:27)
[2021-05-17] MEDS: Pantoprazole Sodium 40 MG Tablet PO ×2 (05:00→16:17)
[2021-05-17 05:03] VITALS: BP 128/60; PULSE 79
[2021-05-17] MEDS: Metoprolol Tartrate 25 MG Tablet PO ×2 (05:03→16:17)
[2021-05-17 06:36] LABS: Bedside Glucose 99 mg/dL (74-106)
[2021-05-17] MEDS: Sucralfate 1 GM Tablet PO ×4 (06:59→20:26)
[2021-05-17] MEDS: Aspirin E.C. 81 MG Tablet PO (09:11)
[2021-05-17] MEDS: Potassium Chloride Oral Tablet 10 MEQ PO (09:11)
[2021-05-17] MEDS: Ferrous Sulfate 325 MG Tablet PO ×2 (09:11→16:17)
[2021-05-17] MEDS: metFORMIN HCl 500 MG Tablet PO ×2 (09:11→16:17)
[2021-05-17 10:44] VITALS: O2SAT 91
[2021-05-17 14:47] VITALS: BP 113/63; PULSE 82; RESP 16; TEMP 36.1; O2SAT 93
--- NOTE | 2021-05-17 15:24 | MDS.RN ---
Completed pain interview for BASIL 05/18/21
[2021-05-17 16:17] VITALS: PULSE 82
[2021-05-17] MEDS: Atorvastatin Calcium 40 MG Tablet PO (20:25)
[2021-05-17] MEDS: Mirtazapine 15 MG Tablet 7.5 MG PO (20:25)
[2021-05-17 21:52] LABS: Bedside Glucose 103 mg/dL (74-106)
[2021-05-18] MEDS: Menthol/Lanolin/Calamine/Znox 113 GM Tube 1 APPLIC TOPICAL (05:03)
[2021-05-18 05:04] VITALS: BP 112/63; PULSE 74
[2021-05-18] MEDS: Pantoprazole Sodium 40 MG Tablet PO (05:04)
[2021-05-18] MEDS: Senna/Docusate Sodium 1 Tablet PO (05:04)
[2021-05-18] MEDS: Cholecalciferol (VIT D3) 25 MCG TABLET (1,000 UNITS) PO (05:04)
[2021-05-18] MEDS: Metoprolol Tartrate 25 MG Tablet PO (05:04)
[2021-05-18] MEDS: Escitalopram Oxalate 10 MG Tablet PO (05:04)
[2021-05-18] MEDS: Sucralfate 1 GM Tablet PO ×2 (05:04→10:33)
[2021-05-18] MEDS: Cyanocobalamin 500 MCG Tablet 1000 MCG PO (05:04)
[2021-05-18 06:21] LABS: Bedside Glucose 103 mg/dL (74-106)
[2021-05-18 08:07] VITALS: O2SAT 91
[2021-05-18] MEDS: metFORMIN HCl 500 MG Tablet PO (08:42)
[2021-05-18] MEDS: Ferrous Sulfate 325 MG Tablet PO (08:42)
[2021-05-18] MEDS: Aspirin E.C. 81 MG Tablet PO (08:42)
[2021-05-18] MEDS: Potassium Chloride Oral Tablet 10 MEQ PO (08:42)
--- NOTE | 2021-05-18 09:34 | CASEMGMT ---
Social Work BIMS and PHQ-9 completed for MDS assessment. Sofiya Marquez, ONLINE MERCHANDISER MARKETING DEVELOPMENT MANAGER
[2021-05-18 10:00] VITALS: PULSE 73; RESP 18; O2SAT 97
== END 2021-05-18 11:40 | disposition home health service (06) | DRG 194 ==
PROVIDERS: Admitting Provider Family Medicine Geriatric Medicine; PCP Internal Medicine; Visit Provider Family Medicine Geriatric Medicine
DX: J18.9 Pneumonia, unspecified organism (principal); J44.0 Chronic obstructive pulmonary disease with (acute) lower respiratory infection; J96.10 Chronic respiratory failure, unspecified whether with hypoxia or hypercapnia; K92.2 Gastrointestinal hemorrhage, unspecified; C85.90 Non-Hodgkin lymphoma, unspecified, unspecified site; E11.9 Type 2 diabetes mellitus without complications; Z79.4 Long term (current) use of insulin; M06.9 Rheumatoid arthritis, unspecified; E53.8 Deficiency of other specified B group vitamins; E78.5 Hyperlipidemia, unspecified; D50.9 Iron deficiency anemia, unspecified; I10 Essential (primary) hypertension; I25.10 Atherosclerotic heart disease of native coronary artery without angina pectoris; E55.9 Vitamin D deficiency, unspecified; F32.A Depression, unspecified; Z87.891 Personal history of nicotine dependence; Z79.899 Other long term (current) drug therapy; Z86.711 Personal history of pulmonary embolism; Z79.82 Long term (current) use of aspirin; Z86.16 Personal history of COVID-19
CPT/HCPCS: 36415; 74230; 80048; 82962; 85025; 92507; 92526; 92610; 92611; 97110; 97116; 97129; 97130; 97162; 97165; 97530; 97535; 97802; G0009; 90670; A4216

== ENCOUNTER 2021-05-29 09:41 | Outpatient (CLI) | payer MEDICARE, SELFPAY ==
--- NOTE | 2021-05-29 09:50 | RAD_ITS ---
STUDY: X-RAY CHEST REASON FOR EXAM: Male, 70 years old. Pneumonia, cov 19, copd TECHNIQUE: PA and lateral COMPARISON: 04/28/2021. FINDINGS: There is infiltrate in the left lung. It has improved compared to the previous study. There is no demonstrated pleural abnormality. Normal size heart. There are median sternotomy sutures. Normal mediastinum and sho. Normal visualized pulmonary arteries. Normal visualized aortic arch and descending thoracic aorta. Normal visualized thoracic spine. Normal visualized ribs, clavicles, and shoulders. There is no demonstrated abnormality of the visualized soft tissue structures of the upper abdomen. RAD/Chest PA and Lateral IMPRESSION: Infiltrate in the right lung. Electronically Signed: Berto Teran MD at 6:43 EDT ,
== END 2021-05-29 23:59 | disposition home or self-care (01) ==
LOC: MTRAD 09:42
PROVIDERS: PCP Internal Medicine; Referring Provider Internal Medicine; Visit Provider Internal Medicine
DX: U07.1 COVID-19 (principal); J44.9 Chronic obstructive pulmonary disease, unspecified; J96.21 Acute and chronic respiratory failure with hypoxia
CPT/HCPCS: 71046

== ENCOUNTER → 2021-06-15 | Outpatient (CLI) | payer MEDICARE, SELFPAY ==
[2021-06-15 13:21] LABS: Hemoglobin 8.5 g/dL (13.0-16.5); Mean Corp Hgb Conc 31.5 g/dL (32-36); Mean Corpuscular Hgb 27.1 pg (27.0-32.0); Platelet Count 357 K/mm3 (150-450); RBC Distribution Width SD 62.9 fl (35.1-43.9); Red Blood Count 3.14 M/mm3 (4.6-6.2); White Blood Count 6.6 K/mm3 (4.4-11.0)
[2021-06-15 13:38] LABS: BUN 21 mg/dL (7-18); Creatinine, Serum 1.04 mg/dL (0.70-1.30); EST Glomerular Filtration Rate 75 mL/min (>60); Glucose 104 mg/dL (74-106)
[2021-06-15 13:39] LABS: Anion Gap 6 (5-15); BUN/Creat Ratio 20.2 RATIO (10-20); Calcium,Total 7.6 mg/dL (8.5-10.1); Chloride 110 mmol/L (98-107); Est Glom Filt Rate - Afr Amer 90 mL/min (>60); Potassium 4.3 mmol/L (3.5-5.1); Sodium Level 141 mmol/L (136-145)
== END | disposition home or self-care (01) ==
LOC: LABSPEC 12:34
PROVIDERS: PCP Internal Medicine; Visit Provider Internal Medicine
DX: D50.9 Iron deficiency anemia, unspecified (principal); E11.9 Type 2 diabetes mellitus without complications; Z99.81 Dependence on supplemental oxygen
CPT/HCPCS: 80048; 85027

== ENCOUNTER → 2021-08-01 | Outpatient (CLI) | payer MEDICARE, SELFPAY ==
[2021-08-01 14:54] LABS: Absolute Lymphocyte Count 0.92 X10^3/uL (0.83-4.51); Basophil# 0.03 X10^3/uL; Basophil% 0.3 % (0-1); Eosinophil# 0.42 X10^3/uL; Hematocrit 30.9 % (40-54); Hemoglobin 9.8 g/dL (13.0-16.5); Lymphocyte # 0.92 X10^3/ul (0.83-4.51); Lymphocyte % 8.9 % (19-41); Mean Corp Hgb Conc 31.7 g/dL (32-36); Mean Corpuscular Hgb 27.1 pg (27.0-32.0); Mean Corpuscular Volume 85.4 fL (80-94); Mean Platelet Vol. 10.9 fl (6.2-12.0); Monocyte# 0.78 X10^3/uL; Monocyte% 7.5 % (0-10); NRBC Flagged by Analyzer 0 % (0-5); Neutrophil # 8.01 X10^3/uL (2.7-7.7); Neutrophil % 77.1 % (47-70); Platelet Count 314 K/mm3 (150-450); RBC Distribution Width CV 15.6 % (11.6-14.6); Red Blood Count 3.62 M/mm3 (4.6-6.2); White Blood Count 10.4 K/mm3 (4.4-11.0)
[2021-08-01 15:59] LABS: ALB/GLOB Ratio 0.9 RATIO (0.9-2.4); AST(SGOT) 20 U/L (15-37); Alanine Aminotransfer ALT/SGPT 19 U/L (16-61); Albumin, Serum 2.5 g/dL (3.2-5.0); Alkaline Phosphatase 92 U/L (45-117); Anion Gap 13 (5-15); BUN 22 mg/dL (7-18); BUN/Creat Ratio 20.6 RATIO (10-20); Calcium,Total 6.2 mg/dL (8.5-10.1); Chloride 106 mmol/L (98-107); Creatinine, Serum 1.07 mg/dL (0.70-1.30); EST Glomerular Filtration Rate 72 mL/min (>60); Est Glom Filt Rate - Afr Amer 87 mL/min (>60); Globulin 2.9 g/dL (2.2-4.2); Glucose 146 mg/dL (74-106); Potassium 3.5 mmol/L (3.5-5.1); Protein, Total 5.4 g/dL (6.4-8.2); Sodium Level 141 mmol/L (136-145)
== END | disposition home or self-care (01) ==
LOC: LABSPEC 14:33
PROVIDERS: PCP Internal Medicine; Visit Provider Internal Medicine
DX: E11.9 Type 2 diabetes mellitus without complications (principal); J96.21 Acute and chronic respiratory failure with hypoxia; D50.9 Iron deficiency anemia, unspecified
CPT/HCPCS: 80053; 85025

== ENCOUNTER → 2021-08-03 | Outpatient (CLI) | payer MEDICARE, SELFPAY | END | disposition home or self-care (01) | LOC: LABSPEC 11:13 | PROVIDERS: PCP Internal Medicine; Visit Provider Internal Medicine | DX: Z85.72 Personal history of non-Hodgkin lymphomas (principal); Z99.81 Dependence on supplemental oxygen; Z85.038 Personal history of other malignant neoplasm of large intestine ==

== ENCOUNTER 2021-08-06 12:06 | Observation (INO) | payer MEDICARE, SELFPAY ==
[2021-08-06] VITALS (8 sets, daily range): BP systolic 97–142; BP diastolic 47–100; PULSE 96–107; RESP 18–22; TEMP 36.6–37.2; O2SAT 94–100; BMI 25.2; BMI 24.8
--- NOTE | 2021-08-06 12:35 | EDS_ITS ---
HPI History of Present Illness Chief Complaint: Hypotension Informant: patient and spouse/S.O. Onset/Context/Timing Onset: Today Narrative Narrative: Patient presents via EMS secondary to generalized weakness and low blood pressure. Patient is had multiple significant illnesses this year including COVID, pneumonia with pulmonary embolism, GI bleed. He is currently not on a blood thinner. He is on home oxygen at 4 L. His home health nurse today reportedly noted his blood pressure to be 76/44. Patient states he has episodes of feeling lightheaded and dizzy intermittently, but did not feel so this morning. They also report his oxygen saturation was reading in the 80s. states that patient has not really bounced back and got his strength up after his multiple recent illnesses. He has a poor appetite and does not eat or drink well. [facility] Medical History Allergic rhinitis Arthritis Asthma Atherosclerosis of coronary artery of [place] heart without angina pectoris Bronchitis Cancer Chronic bronchitis Colon polyp COPD (chronic obstructive pulmonary disease) COVID-19 in immunocompromised patient Diabetes Gastritis History of basal cell carcinoma History of diabetes mellitus, type II History of non-Hodgkin's lymphoma History of pilonidal cyst Hyperlipidemia Hypertension Iron deficiency anemia Lab test negative for COVID-19 virus Nicotine dependence, cigarettes, uncomplicated Non-Hodgkin lymphoma Obesity Pneumonia Pneumonia due to COVID-19 virus Positive colorectal cancer screening using Cologuard test RA (rheumatoid arthritis) Tobacco use URI (upper respiratory infection) 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 complications Home Medications aspirin 81 mg tablet,delayed release 81 mg PO DAILY 09/28/19 [History Last Taken Unknown] cholecalciferol (vitamin D3) 25 mcg (1,000 unit) capsule 25 mcg PO DAILY 07/17/20 [History Last Taken 04/29/21] nitroglycerin 0.4 mg sublingual tablet 0.4 mg SUBLINGUAL Q5M PRN #30 tab 09/25/20 [Rx Last Taken Unknown] cyanocobalamin (vitamin B-12) 1,000 mcg capsule 1,000 mcg PO DAILY 01/29/21 [History Last Taken 04/29/21] ferrous sulfate 325 mg PO BID 04/26/21 [History Last Taken 04/29/21] metoprolol tartrate 25 mg PO BID 04/26/21 [History Last Taken 04/29/21] acetaminophen 1,000 mg PO Q6H PRN PRN #0 tab 05/16/21 [Rx Last Taken Unknown] metformin 500 mg PO BIDCM #0 tab 05/16/21 [Rx Last Taken Unknown] ipratropium 0.5 mg-albuterol 3 mg (2.5 mg base)/3 mL nebulization soln 3 ml INHALATION Q4H PRN PRN #180 ml 06/18/21 [Rx Last Taken Unknown] Nebulizer #1 ea 06/19/21 [Rx Last Taken Unknown] atorvastatin 40 mg tablet 40 mg PO QHS 30 Days #90 tab 06/21/21 [Rx Last Taken Unknown] escitalopram oxalate 10 mg tablet 10 mg PO DAILY 30 Days #90 tab 06/21/21 [Rx Last Taken Unknown] mirtazapine 15 mg tablet 7.5 mg PO QHS 30 Days #90 tab 06/21/21 [Rx Last Taken Unknown] pantoprazole 40 mg tablet,delayed release 40 mg PO BID 30 Days #180 tab 06/21/21 [Rx Last Taken Unknown] potassium chloride 10 mEq tablet,extended release(part/cryst) 10 meq PO 0800 30 Days #90 tab 06/21/21 [Rx Last Taken Unknown] fluticasone 500 mcg-salmeterol 50 mcg/dose blistr powdr for inhalation 1 inh INHALATION BID #60 ea 06/25/21 [Rx Last Taken Unknown] prednisone 10 mg tablet 10 mg PO QDAY #30 tab 07/17/21 [Rx Last Taken Unknown] Allergy/AdvReac Type Severity Reaction Status Date / Time famotidine [From Pepcid] AdvReac Intermediate Diarrhea Verified 08/06/21 12:07 levofloxacin [From Levaquin] AdvReac Intermediate dizziness Verified 08/06/21 12:07 Family History Father Arthritis Bleeding disorder Hypertension Kidney disease Cancer Skin Anemia blood clots Emphysema lung Mother Colon cancer Cancer Lung Cancer Diabetes Brother Thyroid disorder Surgical History History of coronary artery stent placement (~10/22/13) History of excision of pilonidal cyst History of thymectomy Hx of lymph node excision Social History household members: spouse Smoking Status: Former smoker second hand exposure: Yes quit status: considering quitting alcohol intake: current alcohol intake frequency: holidays/special occasions only substance use type: does not use caffeine: Yes Type: coffee Number of servings: 3 what type of physical activity do you participate in: none frequency: does not exercise seatbelt use: always ROS ROS ED Constitutional Constitutional ED: Denies chills or fever(s) Eyes Eyes: Denies change in vision ENT ENT ED: Denies sore throat Cardiovascular Cardiovascular: Denies chest pain Respiratory/Chest Respiratory/Chest: Reports dyspnea; Denies cough Gastrointestinal Gastrointestinal: Denies abdominal pain, nausea or vomiting Genitourinary Genitourinary ED: Denies dysuria Musculoskeletal Musculoskeletal: Denies back pain Integumentary Denies rash Neurologic Neurologic: Reports weakness; Denies headache(s) Allergic/Immunologic Allergic/Immunologic ED: Denies urticaria EXAM Physical Exam Const Vital Signs: 08/06/21 12:07 08/06/21 15:03 Temperature 98.6 F Temperature Source Oral Pulse Rate 105 H 98 Respiratory Rate 22 H 18 Blood Pressure 142/81 H 128/73 H Blood Pressure Mean 101 91 Pulse Ox 94 96 Oxygen Delivery Method Nasal Cannula Nasal Cannula Oxygen Flow Rate (L/min) 4 2 Positive well nourished and well developed General Appearance ED: well developed HEENT Reports moist mucous membranes Eyes PERRL and EOMs intact bilaterally Neck no lymphadenopathy and supple Chest Wall inspection of chest normal and palpation of chest normal Resp normal respiratory effort Auscultation: diminished lung sounds Cardio regular rate and regular rhythm GI non-tender Auscultation: hypoactive bowel sounds Palpation: soft Extremity normal to inspection Neuro oriented x3 Sensorium / Orientation: alert Psych Psych Narrative: No focal neurologic deficits. Skin no rashes or lesions noted MDM MDM MDM Narrative Medical decision making narrative: Patient given IV fluids. Lab work, urinalysis, chest x-ray obtained. Lab Data Attestation: I reviewed the patient's lab results. Labs: Laboratory Results - last 24 hr 08/06/21 08/06/21 12:10 12:10 WBC 9.4 RBC 3.46 L Hgb 9.4 L Hct 29.4 L MCV 85.0 MCH 27.2 MCHC 32.0 RDW Std Deviation 48.0 H RDW Coeff of Rafael 15.5 H Plt Count 332 MPV 10.4 Immature Gran % (Auto) 0.500 Neut % (Auto) 60.6 Lymph % (Auto) 24.8 [place] % (Auto) 8.8 Eos % (Auto) 4.9 Baso % (Auto) 0.4 Absolute Neuts (auto) 5.7 Absolute Lymphs (auto) 2.34 Nucleated RBC % 0 Sodium 141 Potassium 3.6 Chloride 109 H Carbon Dioxide 25.0 Anion Gap 7 BUN 22 H Creatinine 1.08 Estim Creat Clear Calc 66.82 Est GFR (MDRD) Af Amer 87 Est GFR (MDRD) Non-Af 72 BUN/Creatinine Ratio 20.4 H Glucose 104 Calcium 6.1 L* Total Bilirubin 0.50 Direct Bilirubin 0.22 AST 17 ALT 14 L Alkaline Phosphatase 96 Total Protein 5.3 L Albumin 2.2 L Globulin 3.1 Radiography Chest X-Ray - ED: 1 View, Read by ED Physician, Chronic Changes and Left Infiltrate Diagnostic Testing: Clinical Impression(s) from Imaging Studies Chest X-Ray 08/06/21 12:50 IMPRESSION: Patchy left lower lobe infiltrate. Follow-up is recommended. Electronically Signed: Brett Fontanez MD at 13:03 EDT , Chest CT 08/06/21 14:16 IMPRESSION: Patchy infiltrates in the posterior aspect of the left upper lobe as well as in the lower lobes worse on the left side with small bilateral pleural effusions. There has been improvement as compared to prior study dated 04/29/2021. Electronically Signed: Brett Fontanez MD at 15:04 EDT , EKG Initial EKG: Attestation: I personally reviewed and interpreted this EKG as follows: Interpretation: Sinus Rhythm (Sinus at 95 with no acute ischemia.) Treatment and Re-Evaluation Narrative: That he isLab work reveals normal white count. Mild anemia with a hemoglobin 9.4, consistent with prior values. BUN of 22 and creatinine 1.08. Calcium is low at 6.1 however albumin is low at 2.2. Corrected calcium is 7.5. Ionized calcium was sent. Chest x-ray per my interpretation reveals chronic changes with questionable left lower lobe infiltrate. Radiology does feel there is an infiltrate. He is sent for a CT of the chest. This reveals patchy infi ltrates in the posterior aspect of the left upper lobe as well as the lower lobes, left greater than right. There has been improvement when compared to prior study 3 months ago. Had a long talk with patient and at bedside. She states that after coming home from the hospital he been making good progress, but after having this most recent bout of pneumonia and having a reaction to Levaquin he has been slowly on the down slide. He is having increasing weakness. He is scheduled to see pulmonology office next week. I will treat him with Rocephin and Zithromax and get blood cultures at this time. We will admit for observation overnight and hopefully pulmonology will be able to see him in consult. Patient's blood pressure was reportedly low at 76/44 but he has not been hypotensive for us here. Patient and are in agreement with the plan. I will speak with the hospitalist. Discharge Plan Triage Chief Complaint: Hypotension ED Provider: Farida Todd Dx/Rx/DC Orders Clinical Impression: Pneumonia, Generalized weakness Prescriptions: No Action aspirin [Adult Aspirin Regimen] 81 mg tablet,delayed release (DR/EC) 81 mg PO DAILY RF: 0 cholecalciferol (vitamin D3) 25 mcg (1,000 unit) capsule 25 mcg PO DAILY RF: 0 nitroglycerin [Nitrostat] 0.4 mg tablet, sublingual 0.4 mg SUBLINGUAL Q5M PRN (Reason: chest pain) Qty: 30 RF: 0 cyanocobalamin (vitamin B-12) 1,000 mcg capsule 1,000 mcg PO DAILY RF: 0 fluticasone propion-salmeterol [Advair Diskus] 500-50 mcg/dose blister with device 1 inh inhalation BID Qty: 60 RF: 6 ferrous sulfate 325 mg (65 mg iron) tablet 325 mg PO BID RF: 0 metoprolol tartrate 25 mg tablet 25 mg PO BID RF: 0 acetaminophen 500 mg Tablet 1,000 mg PO Q6H PRN PRN (Reason: Pain Score 1-10) Qty: 0 RF: 0 metformin 500 mg Tablet 500 mg PO BIDCM Qty: 0 RF: 0 ipratropium-albuterol 0.5 mg-3 mg(2.5 mg base)/3 mL solution for nebulization 3 ml inhalation Q4H PRN PRN (Reason: SOB &/OR WHEEZING) Qty: 180 RF: 6 (DME) Nebulizer See Rx Instructions .ROUTE .MEDSUPPLY Qty: 1 RF: 0 atorvastatin 40 mg tablet 40 mg PO QHS 30 Days Qty: 90 RF: 3 escitalopram oxalate 10 mg tablet 10 mg PO DAILY 30 Days Qty: 90 RF: 3 mirtazapine [Remeron] 15 mg tablet 7.5 mg PO QHS 30 Days Qty: 90 RF: 3 pantoprazole 40 mg tablet,delayed release (DR/EC) 40 mg PO BID 30 Days Qty: 180 RF: 3 potassium chloride 10 mEq tablet,ER particles/crystals 10 meq PO 0800 30 Days Qty: 90 RF: 3 prednisone 10 mg tablet 10 mg PO QDAY Qty: 30 RF: 0 Primary Care Provider: Donna Will Referrals: Donna Will MD [Primary Care Provider] - Disposition Disposition: Acute Care Hospital [facility]
--- NOTE | 2021-08-06 12:35 | EKG12_ITS ---
Test Reason : SOB Blood Pressure : / mmHG Vent. Rate : 095 BPM Atrial Rate : 095 BPM P-R Int : 122 ms QRS Dur : 082 ms QT Int : 372 ms P-R-T Axes : 063 035 055 degrees QTc Int : 467 ms Normal sinus rhythm Normal ECG Confirmed by JOSEFINA TEIXEIRA, SAL ([id number]), news videotape editor AVINASH MARTINEZ ([id number]) on 08/08/2021 9:54:07 AM Referred By: IVÁN Confirmed By:SAL ROCHA MD
[2021-08-06] MEDS: 0.9% Normal Saline 1,000 ML 150 ML IV ×3 (12:47→23:25)
[2021-08-06 12:48] LABS: Absolute Lymphocyte Count 2.34 X10^3/uL (0.83-4.51); Absolute Neutrophil Count 5.7 X10^3/uL (2.0-7.7); Basophil# 0.04 X10^3/uL; Basophil% 0.4 % (0-1); Eosinophil# 0.46 X10^3/uL; Eosinophils% 4.9 % (0-5); Hematocrit 29.4 % (40-54); Hemoglobin 9.4 g/dL (13.0-16.5); Lymphocyte # 2.34 X10^3/ul (0.83-4.51); Lymphocyte % 24.8 % (19-41); Mean Corpuscular Hgb 27.2 pg (27.0-32.0); Mean Platelet Vol. 10.4 fl (6.2-12.0); Monocyte# 0.83 X10^3/uL; Monocyte% 8.8 % (0-10); NRBC Flagged by Analyzer 0 % (0-5); Neutrophil % 60.6 % (47-70); Platelet Count 332 K/mm3 (150-450); RBC Distribution Width CV 15.5 % (11.6-14.6); Red Blood Count 3.46 M/mm3 (4.6-6.2); White Blood Count 9.4 K/mm3 (4.4-11.0)
--- NOTE | 2021-08-06 12:50 | RAD_ITS ---
STUDY: X-RAY CHEST REASON FOR EXAM: Male, 70 years old. Sob TECHNIQUE: Single AP portable view of the chest. COMPARISON: Comparison is made with prior study dated 05/29/2021. FINDINGS: EKG electrodes are seen. Hyperinflation. Patchy left lower lobe infiltrate. Sternal cerclage wires and vascular clips are present from a prior sternotomy and coronary artery bypass graft procedure (CABG). Normal mediastinum and sho. Normal visualized pulmonary arteries. Normal visualized aortic arch and descending thoracic aorta. There are diffuse degenerative changes of the visualized thoracic spine. There is degenerative osteoarthritis of the bilateral shoulders. There is no demonstrated abnormality of the visualized soft tissue structures of the upper abdomen. RAD/Chest 1 View (Portable) IMPRESSION: Patchy left lower lobe infiltrate. Follow-up is recommended. Electronically Signed: Brett Fontanez MD at 13:03 EDT ,
[2021-08-06 13:14] LABS: AST(SGOT) 17 U/L (15-37); Alanine Aminotransfer ALT/SGPT 14 U/L (16-61); Albumin, Serum 2.2 g/dL (3.2-5.0); Alkaline Phosphatase 96 U/L (45-117); Anion Gap 7 (5-15); BUN 22 mg/dL (7-18); BUN/Creat Ratio 20.4 RATIO (10-20); Bilirubin, Direct 0.22 mg/dL (0.00-0.30); Calcium,Total 6.1 mg/dL (8.5-10.1); Chloride 109 mmol/L (98-107); Creatinine, Serum 1.08 mg/dL (0.70-1.30); EST Glomerular Filtration Rate 72 mL/min (>60); Est Glom Filt Rate - Afr Amer 87 mL/min (>60); Estimated Creatinine Clearance 66.82 ml/min; Globulin 3.1 g/dL (2.2-4.2); Glucose 104 mg/dL (74-106); Potassium 3.6 mmol/L (3.5-5.1); Protein, Total 5.3 g/dL (6.4-8.2); Sodium Level 141 mmol/L (136-145)
--- NOTE | 2021-08-06 14:16 | CT_ITS ---
STUDY: CT CHEST WITHOUT CONTRAST REASON FOR EXAM: Male, 70 years old. Pneumonia RADIATION DOSAGE (If Supplied By Facility): CTDIvol = ( 15.18 ) mGy, DLP = ( 504.61 ) mGycm TECHNIQUE: Transaxial imaging was performed without the administration of intravenous contrast material. Multiplanar coronal and sagittal images were reformatted. Individualized dose optimization techniques were used for this CT. COMPARISON: Comparison is made with prior examination dated 04/29/2021 and prior chest radiograph done earlier today. FINDINGS: CHEST Mild degree of emphysematous changes. Mild degree of increased markings in the posterior aspect of the right and left upper lobes. Patchy infiltrates in the posterior aspect of the left upper lobe and right upper lobe as well as infiltrates in both lower lobes worse on the left side with small lateral pleural effusions. There has been overall improvement as compared to prior study. There are calcifications of the coronary arteries. CABG There are multiple small lymph nodes within the mediastinum, which are normal in size and morphology most compatible with reactive lymph hyperplasia. Normal hilar regions. Normal unenhanced pulmonary arteries. There is atherosclerotic calcification of the aortic arch with tortuosity and elongation of the aortic arch and descending thoracic aorta. There are multi-level degenerative changes of the thoracic spine. There is no demonstrated abnormality of the visualized upper abdomen. CT/Chest without Contrast IMPRESSION: Patchy infiltrates in the posterior aspect of the left upper lobe as well as in the lower lobes worse on the left side with small bilateral pleural effusions. There has been improvement as compared to prior study dated 04/29/2021. Electronically Signed: Brett Fontanez MD at 15:04 EDT ,
--- NOTE | 2021-08-06 15:30 | HP.PCM.HOS_ITS ---
[facility] - General General Date of Admission: 08/06/21 Date of Service: 08/06/21 Chief Complaint: Generalized weakness HPI Narrative SAL ALONZO, is a 70 M who with significant past medical history including previous history of COVID-19 pneumonia which was complicated by bilateral pulmonary embolism who presents with progressive generalized weakness. Patient symptoms started about a week prior to his admission. He had been treated as outpatient for pneumonia with oral antibiotics his condition however did not improve. On the morning of his admission patient was found to be hypoxic with oxygen saturation in the low 80s. He was also hypotensive at home with systolic blood pressure in the 70s he was brought to the emergency department for subsequent evaluation. Patient upon further questioning admitted to cough which is productive. Denied any subjective fever no chills. Imaging studies obtained in the ED did show patchy infiltrate in the posterior aspect of the left upper lobe as well as the lower lobes worse on the left. He was admitted as a case of adult failure to thrive to regular nursing floor for further management [facility] Medical History Allergic rhinitis Arthritis Asthma Atherosclerosis of coronary artery of [place] heart without angina pectoris Bronchitis Cancer Chronic bronchitis Colon polyp COPD (chronic obstructive pulmonary disease) COVID-19 in immunocompromised patient Diabetes Gastritis History of basal cell carcinoma History of diabetes mellitus, type II History of non-Hodgkin's lymphoma History of pilonidal cyst Hyperlipidemia Hypertension Iron deficiency anemia Lab test negative for COVID-19 virus Nicotine dependence, cigarettes, uncomplicated Non-Hodgkin lymphoma Obesity Pneumonia Pneumonia due to COVID-19 virus Positive colorectal cancer screening using Cologuard test RA (rheumatoid arthritis) Tobacco use URI (upper respiratory infection) 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 complications Home Medications aspirin 81 mg tablet,delayed release 81 mg PO DAILY 09/28/19 [History Last Taken 08/06/21] cholecalciferol (vitamin D3) 25 mcg (1,000 unit) capsule 25 mcg PO DAILY 07/17/20 [History Last Taken 08/06/21] nitroglycerin 0.4 mg sublingual tablet 0.4 mg SUBLINGUAL Q5M PRN #30 tab 09/25/20 [Rx Last Taken Unknown] cyanocobalamin (vitamin B-12) 1,000 mcg capsule 1,000 mcg PO DAILY 01/29/21 [History Last Taken 08/06/21] ferrous sulfate 325 mg PO BID 04/26/21 [History Last Taken 08/06/21] metoprolol tartrate 25 mg PO BID 04/26/21 [History Last Taken 08/06/21] ipratropium 0.5 mg-albuterol 3 mg (2.5 mg base)/3 mL nebulization soln 3 ml INHALATION Q4H PRN PRN #180 ml 06/18/21 [Rx Last Taken 08/06/21] Nebulizer #1 ea 06/19/21 [Rx Last Taken Unknown] atorvastatin 40 mg tablet 40 mg PO QHS 30 Days #90 tab 06/21/21 [Rx Last Taken 08/05/21] escitalopram oxalate 10 mg tablet 10 mg PO DAILY 30 Days #90 tab 06/21/21 [Rx Last Taken 08/06/21] mirtazapine 15 mg tablet 7.5 mg PO QHS 30 Days #90 tab 06/21/21 [Rx Last Taken 08/05/21] pantoprazole 40 mg tablet,delayed release 40 mg PO BID 30 Days #180 tab 06/21/21 [Rx Last Taken 08/06/21] potassium chloride 10 meq PO DAILY@0800 08/06/21 [History Last Taken 08/06/21] Allergy/AdvReac Type Severity Reaction Status Date / Time famotidine [From Pepcid] AdvReac Intermediate Diarrhea Verified 08/06/21 12:07 levofloxacin [From Levaquin] AdvReac Intermediate dizziness Verified 08/06/21 12:07 Family History Father Arthritis Bleeding disorder Hypertension Kidney disease Cancer Skin Anemia blood clots Emphysema lung Mother Colon cancer Cancer Lung Cancer Diabetes Brother Thyroid disorder Surgical History History of coronary artery stent placement (~10/22/13) History of excision of pilonidal cyst History of thymectomy Hx of lymph node excision Social History household members: spouse Smoking Status: Former smoker second hand exposure: Yes quit status: considering quitting alcohol intake: current alcohol intake frequency: holidays/special occasions only substance use type: does not use caffeine: Yes Type: coffee Number of servings: 3 what type of physical activity do you participate in: none frequency: does not exercise seatbelt use: always ROS ROS Narrative GENERAL: Generalized weakness, anorexia HEENT: denies headache, sinus congestion, or drainage, dysphagia RESPIRATORY: cough, sputum production, shortness of breath, dyspnea on exertion CARDIAC: denies chest pain, palpitations, orthopnea, PND GASTROINTESTINAL: denies abdominal pain, nausea, vomiting, melena, GENITOURINARY: denies dysuria, urgency, frequency, heamaturia EXTREMITY: denies swelling MUSCULOSKELETAL: denies current joint pain or tenderness NEUROLOGIC: denies focal numbness, weakness, tingling HEMATOLOGIC: denies easy bruising and/or hemorrhage INTEGUMENT: denies rashes PSYCHIATRIC: denies suicidal or homicidal ideation Vital Signs Vital Signs Vital Signs: 08/06/21 12:07 08/06/21 15:03 Temperature 98.6 F Temperature Source Oral Pulse Rate 105 H 98 Respiratory Rate 22 H 18 Blood Pressure 142/81 H 128/73 H Blood Pressure Mean 101 91 Pulse Ox 94 96 Oxygen Delivery Method Nasal Cannula Nasal Cannula Oxygen Flow Rate (L/min) 4 2 Weight Weight: 82.1 kg Body Mass Index (BMI) 25.2 Physical Exam Narrative GENERAL: cooperative but frail looking HEENT: Atraumatic; EYES; Anicteric, Normal Conjunctiva NECK; supple, normal thyroid, RESPIRATORY: Diminished to auscultation CARDIOVASCULAR: Regular S1 S2, GI: soft, normoactive bowel sounds, : No Renal angle tenderness; EXTREMITIES: No edema, no clubbing, MUSCULOSKELETAL: no muscle wasting NEURO: Awake; no lateralizing signs. SKIN: No Rash PSYCH; Flat affect Results Lab / Micro Data Result Diagrams: 08/06/21 12:10 08/06/21 12:10 Labs: Laboratory Results - last 24 hr 08/06/21 12:10: WBC 9.4, RBC 3.46 L, Hgb 9.4 L, Hct 29.4 L, MCV 85.0, MCH 27.2, MCHC 32.0, RDW Std Deviation 48.0 H, RDW Coeff of Rafael 15.5 H, Plt Count 332, MPV 10.4, Immature Gran % (Auto) 0.500, Neut % (Auto) 60.6, Lymph % (Auto) 24.8, [place] % (Auto) 8.8, Eos % (Auto) 4.9, Baso % (Auto) 0.4, Absolute Neuts (auto) 5.7, Absolute Lymphs (auto) 2.34, Nucleated RBC % 0 08/06/21 12:10: Sodium 141, Potassium 3.6, Chloride 109 H, Carbon Dioxide 25.0, Anion Gap 7, BUN 22 H, Creatinine 1.08, Estim Creat Clear Calc 66.82, Est GFR (MDRD) Af Amer 87, Est GFR (MDRD) Non-Af 72, BUN/Creatinine Ratio 20.4 H, Glucose 104, Calcium 6.1 L*, Total Bilirubin 0.50, Direct Bilirubin 0.22, AST 17, ALT 14 L, Alkaline Phosphatase 96, Total Protein 5.3 L, Albumin 2.2 L, Globulin 3.1 Radiology Impression Chest X-Ray 08/06/21 12:50 IMPRESSION: Patchy left lower lobe infiltrate. Follow-up is recommended. Electronically Signed: Brett Fontanez MD at 13:03 EDT , Chest CT 08/06/21 14:16 IMPRESSION: Patchy infiltrates in the posterior aspect of the left upper lobe as well as in the lower lobes worse on the left side with small bilateral pleural effusions. There has been improvement as compared to prior study dated 04/29/2021. Electronically Signed: Brett Fontanez MD at 15:04 EDT , Assessment & Plan Assessment/Plan (1) Generalized weakness: (2) Pneumonia: PLAN: Patient is a 70-year-old presented with progressive generalized weakness 1. Physical deconditioning - Requested for PT OT eval and social media sr strategy manager to assist with discharge planning 2. Pneumonia ? Patient was treated as outpatient with oral antibiotics. CT of the chest obtained demonstrated patchy infiltrate in the posterior aspect of the left upper lobe as well as bilateral lower infiltrate. Did continue with antibiotics 3. Chronic hypoxic respiratory failure ? Secondary to suspected pulmonary fibrosis from patient COVID-19 infection at the beginning of the year. Patient currently on supplemental oxygen 4. 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 Previously treated with apixaban. Patient did not tolerate apixaban as a result of GI bleed he underwent IVC filter placement on 05/02/2021 5. Severe protein calorie malnutrition ? Evidenced by decreased oral intake decreased energy level as well as hypoalbuminemia this is a result of patient multiple comorbidities. Consult has been placed to dietitian 6. Hypocalcemia ? Secondary to hypoalbuminemia 7. Anemia - Secondary to chronic disorder monitoring H&H and transfuse if patient becomes symptomatic or hemoglobin falls below 7 8.. Diabetes mellitus type II -patient's oral hypoglycemics held. Placed on long acting insulin, Accu-Cheks a.c. and at bedtime and covered with sliding scale insulin 9. Rheumatoid arthritis Patient previously treated with rituximab as outpatient 10.. Non Hodgkin's lymphoma ?Apparently in remission 11.. Coronary artery disease ?With previous PCI of an LAD RCA and mid circumflex lesions 12.. Dyslipidemia ?Per history currently not on any statin therapy 12. Hypertension - Blood pressure low on admission antihypertensives subsequently held 13. Depression ? Patient is on SSRI 14. Previous history of GI bleed ? Patient is on PPI 15. DVT prophylaxis - Lovenox Advance planning; did discuss with the patient and family (patient's spouse) regarding advanced directives as well as CODE STATUS. Did explain the various scenarios involved ( FULL CODE, DNR CCA, DNR CCA with no intubation, and DNR CC and what each meant) patient elected fot full code with CPR and intubation if needed. Order was placed. Time spent on discussion 18 minutes. Charges/Coding Visit Charges OBSV E&M: 45024 Initial observation care L3 Procedures Hospitalists Procedures: 06307 Advncd Care Plan 30 Min
[2021-08-06] MEDS: Ceftriaxone 1 GM/50 ML BAG IV (15:46)
[2021-08-06] MEDS: Ferrous Sulfate 325 MG Tablet PO (17:09)
[2021-08-06 17:20] LABS: Bedside Glucose 109 mg/dL (74-106)
[2021-08-06] MEDS: Ipratropium/Albuterol Sulfate 3 ML AMPUL.NEB INHALATION (18:56)
[2021-08-06] MEDS: Pantoprazole Sodium 40 MG Tablet PO (21:14)
[2021-08-06] MEDS: guaiFENesin 1,200 MG Tablet 1200 MG PO (21:14)
[2021-08-06] MEDS: Atorvastatin Calcium 40 MG Tablet PO (21:14)
[2021-08-06] MEDS: Mirtazapine 15 MG Tablet 7.5 MG PO (21:14)
[2021-08-06 21:26] LABS: Bedside Glucose 151 mg/dL (74-106)
[2021-08-06 21:33] LABS: Mucous, Urine 0 SEEN /hpf (<or=2+)
[2021-08-06 21:40] LABS: Color, Urine Yellow (Yellow); Glucose, Dipstick Normal (Normal); Ketone-Dipstick Negative (Negative); Leukocyte Esterase-Dipstick 500 /ul (Negative); Nitrite-Dipstick Negative (Negative); Occult Blood-Urine 25 /ul (Negative); Protein-Dipstick 15 mg/dl (Negative); Specific Gravity, Urine 1.015 (1.002-1.030); Urine Bilirubin Dipstick Negative (Negative); Urine Clarity Sl. Cloudy (Clear); Urine Urobilinogen Normal (Normal)
[2021-08-06 22:11] LABS: White Blood Cells >100 SEEN /hpf (0-5)
[2021-08-06 22:12] LABS: Bacteria 1+ /hpf (None Seen); Squamous Epithelial Cells - UA 0-5 SEEN /hpf (0-5); Yeast-Urine 4+ /hpf (None Seen)
[2021-08-06 22:13] LABS: Red Blood Cells-Urine 5-10 SEEN /hpf (0-5)
[2021-08-06] MEDS: Menthol/Lanolin/Calamine/Znox 113 GM Tube 1 APPLIC TOPICAL (23:24)
[2021-08-07 04:00] VITALS: BP 114/54; PULSE 88; RESP 18; TEMP 36.6; O2SAT 99
[2021-08-07 05:55] LABS: Absolute Lymphocyte Count 1.59 X10^3/uL (0.83-4.51); Absolute Neutrophil Count 5.5 X10^3/uL (2.0-7.7); Basophil# 0.02 X10^3/uL; Basophil% 0.2 % (0-1); Eosinophil# 0.06 X10^3/uL; Eosinophils% 0.7 % (0-5); Hematocrit 22.3 % (40-54); Lymphocyte # 1.59 X10^3/ul (0.83-4.51); Lymphocyte % 19.6 % (19-41); Mean Corp Hgb Conc 31.4 g/dL (32-36); Mean Corpuscular Hgb 26.6 pg (27.0-32.0); Mean Corpuscular Volume 84.8 fL (80-94); Mean Platelet Vol. 10.1 fl (6.2-12.0); Monocyte# 0.94 X10^3/uL; Monocyte% 11.6 % (0-10); NRBC Flagged by Analyzer 0 % (0-5); Neutrophil # 5.46 X10^3/uL (2.7-7.7); Neutrophil % 67.5 % (47-70); Platelet Count 206 K/mm3 (150-450); RBC Distribution Width CV 15.5 % (11.6-14.6); RBC Distribution Width SD 47.6 fl (35.1-43.9); Red Blood Count 2.63 M/mm3 (4.6-6.2); White Blood Count 8.1 K/mm3 (4.4-11.0)
[2021-08-07 06:47] LABS: Anion Gap 7 (5-15); BUN 23 mg/dL (7-18); BUN/Creat Ratio 29.4 RATIO (10-20); Calcium,Total 5.4 mg/dL (8.5-10.1); Chloride 113 mmol/L (98-107); Creatinine, Serum 0.78 mg/dL (0.70-1.30); EST Glomerular Filtration Rate 104 mL/min (>60); Est Glom Filt Rate - Afr Amer 126 mL/min (>60); Estimated Creatinine Clearance 72.16 ml/min; Glucose 131 mg/dL (74-106); Potassium 3.6 mmol/L (3.5-5.1); Sodium Level 142 mmol/L (136-145)
[2021-08-07 06:55] VITALS: PULSE 82; RESP 24; O2SAT 91
[2021-08-07] MEDS: Ipratropium/Albuterol Sulfate 3 ML AMPUL.NEB INHALATION ×2 (06:55→11:50)
[2021-08-07 06:56] LABS: Bedside Glucose 126 mg/dL (74-106)
--- NOTE | 2021-08-07 07:12 | PCM.PN.HOSP ---
Subjective Subjective Patient seen admit to overall improvement in his clinical condition. His respiratory viral panel came back positive for rhinovirus. His hemoglobin is down to 7.0. Patient has been typed and screened. An order has been placed for H&H at noon and if hemoglobin is less than 7 patient will be transfused 1 unit PRBC. Lovenox which had been initiated for DVT prophylaxis discontinued. Iron level low at 14 started parenteral iron Objective Data Objective Data Vital Signs: Vital Signs Temp Pulse Resp BP Pulse Ox 97.9 F 88 18 114/54 L 99 08/07/21 04:00 08/07/21 04:00 08/07/21 04:00 08/07/21 04:00 08/07/21 04:00 Oxygen Flow Rate (L/min) 4 Oxygen Delivery Method Nasal Cannula Weight: 80.739 kg Body Mass Index (BMI) 24.8 Intake & Output: Intake and Output for Last 24 Hours 08/05/21 08/06/21 08/07/21 23:59 23:59 23:59 Intake Total 2001.0 / 2061.0 1060 / 1060 Output Total 360 / 360 Balance 0 / 2001.0 700 / 700 Lab / Micro Data Result Diagrams: 08/07/21 05:05 08/07/21 05:05 Labs: Laboratory Results - last 24 hr 08/06/21 12:10: WBC 9.4, RBC 3.46 L, Hgb 9.4 L, Hct 29.4 L, MCV 85.0, MCH 27.2, MCHC 32.0, RDW Std Deviation 48.0 H, RDW Coeff of Rafael 15.5 H, Plt Count 332, MPV 10.4, Immature Gran % (Auto) 0.500, Neut % (Auto) 60.6, Lymph % (Auto) 24.8, [place] % (Auto) 8.8, Eos % (Auto) 4.9, Baso % (Auto) 0.4, Absolute Neuts (auto) 5.7, Absolute Lymphs (auto) 2.34, Nucleated RBC % 0 08/06/21 12:10: Sodium 141, Potassium 3.6, Chloride 109 H, Carbon Dioxide 25.0, Anion Gap 7, BUN 22 H, Creatinine 1.08, Estim Creat Clear Calc 66.82, Est GFR (MDRD) Af Amer 87, Est GFR (MDRD) Non-Af 72, BUN/Creatinine Ratio 20.4 H, Glucose 104, Calcium 6.1 L*, Total Bilirubin 0.50, Direct Bilirubin 0.22, AST 17, ALT 14 L, Alkaline Phosphatase 96, Total Protein 5.3 L, Albumin 2.2 L, Globulin 3.1 08/06/21 17:05: POC Glucose 109 H 08/06/21 21:20: Urine Color Yellow, Urine Clarity Sl. Cloudy, Urine pH 6.0, Ur Specific [place] 1.015, Urine Protein 15 H, Urine Glucose (UA) Normal, Urine Ketones Negative, Urine Occult Blood 25 H, Urine Nitrite Negative, Urine Bilirubin Negative, Urine Urobilinogen Normal, Ur Leukocyte Esterase 500 H, Urine RBC 5-10 SEEN, Urine WBC >100 SEEN, Ur Squamous Epith Cells 0-5 SEEN, Urine Bacteria 1+, Urine Mucus 0 SEEN, Urine Yeast 4+ 08/06/21 21:20: POC Glucose 151 H 08/07/21 05:05: WBC 8.1, RBC 2.63 L, Hgb 7.0 L, Hct 22.3 L, MCV 84.8, MCH 26.6 L, MCHC 31.4 L, RDW Std Deviation 47.6 H, RDW Coeff of [place] 15.5 H, Plt Count 206, MPV 10.1, Immature Gran % (Auto) 0.400, Neut % (Auto) 67.5, Lymph % (Auto) 19.6, [place] % (Auto) 11.6 H, Eos % (Auto) 0.7, Baso % (Auto) 0.2, Absolute Neuts (auto) 5.5, Absolute Lymphs (auto) 1.59, Nucleated RBC % 0 08/07/21 05:05: Sodium 142, Potassium 3.6, Chloride 113 H, Carbon Dioxide 22.0, Anion Gap 7, BUN 23 H, Creatinine 0.78, Estim Creat Clear Calc 72.16, Est GFR (MDRD) Af Amer 126, Est GFR (MDRD) Non-Af 104, BUN/Creatinine Ratio 29.4 H, Glucose 131 H, Calcium 5.4 L* 08/07/21 06:49: POC Glucose 126 H Micro: Microbiology 08/06/21 21:20 Urine, Clean Catch Legionella Antigen - Final 08/06/21 21:20 Urine, Clean Catch Streptococcus pneumoniae Antigen (M - Final 08/06/21 17:30 Mucosa - Nose Respiratory Panel (PCR) - Final Rhinovirus Radiography Diagnostic Testing: Radiology Impression Chest X-Ray 08/06/21 12:50 IMPRESSION: Patchy left lower lobe infiltrate. Follow-up is recommended. Electronically Signed: Brett Fontanez MD at 13:03 EDT , Chest CT 08/06/21 14:16 IMPRESSION: Patchy infiltrates in the posterior aspect of the left upper lobe as well as in the lower lobes worse on the left side with small bilateral pleural effusions. There has been improvement as compared to prior study dated 04/29/2021. Electronically Signed: Brett Fontanez MD at 15:04 EDT , Physical Exam Narrative GENERAL: cooperative but frail looking HEENT: Atraumatic; EYES; Anicteric, Normal Conjunctiva NECK; supple, normal thyroid, RESPIRATORY: Diminished to auscultation CARDIOVASCULAR: Regular S1 S2, GI: soft, normoactive bowel sounds, : No Renal angle tenderness; EXTREMITIES: No edema, no clubbing, MUSCULOSKELETAL: no muscle wasting NEURO: Awake; no lateralizing signs. SKIN: No Rash PSYCH; Flat affect Assessment & Plan Assessment/Plan (1) Generalized weakness: (2) Pneumonia: PLAN: Patient is a 70-year-old presented with progressive generalized weakness 1. Physical deconditioning - Requested for PT OT eval and social worker psychiatric to assist with discharge planning 2. Pneumonia ? Patient was treated as outpatient with oral antibiotics. CT of the chest obtained demonstrated patchy infiltrate in the posterior aspect of the left upper lobe as well as bilateral lower infiltrate. Did continue with antibiotics ? 08/07/2021; patient viral respiratory panel came back positive for rhinovirus. Antibiotics subsequently discontinued 3. Chronic hypoxic respiratory failure ? Secondary to suspected pulmonary fibrosis from patient COVID-19 infection at the beginning of the year. Patient currently on supplemental oxygen 4. 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 Previously treated with apixaban. Patient did not tolerate apixaban as a result of GI bleed he underwent IVC filter placement on 05/02/2021 5. Severe protein calorie malnutrition ? Evidenced by decreased oral intake decreased energy level as well as hypoalbuminemia this is a result of patient multiple comorbidities. Consult has been placed to dietitian 6. Hypocalcemia ? Secondary to hypoalbuminemia 7. Anemia - Secondary to chronic disorder monitoring H&H and transfuse if patient becomes symptomatic or hemoglobin falls below 7 ? 08/07/2021. Patient iron studies consistent with iron deficiency anemia did start parenteral iron 8.. Diabetes mellitus type II -patient's oral hypoglycemics held. Placed on long acting insulin, Accu-Cheks a.c. and at bedtime and covered with sliding scale insulin 9. Rheumatoid arthritis Patient previously treated with rituximab as outpatient 10.. Non Hodgkin's lymphoma ?Apparently in remission 11.. Coronary artery disease ?With previous PCI of an LAD RCA and mid circumflex lesions 12.. Dyslipidemia ?Per history currently not on any statin therapy 12. Hypertension - Blood pressure low on admission antihypertensives subsequently held 13. Depression ? Patient is on SSRI 14. Previous history of GI bleed ? Patient is on PPI 15. DVT prophylaxis - Lovenox ? 08/07/2021 Lovenox discontinued given significant drop in patient hemoglobin level Charges/Coding Visit Charges OBSV E&M: 57142 Subsequent observation care L3
[2021-08-07 07:54] VITALS: BP 99/45; PULSE 89; RESP 18; TEMP 36.7; O2SAT 98
[2021-08-07] MEDS: Ferrous Sulfate 325 MG Tablet PO ×2 (08:00→16:36)
[2021-08-07] MEDS: Aspirin E.C. 81 MG Tablet PO (08:00)
[2021-08-07] MEDS: Potassium Chloride Oral Tablet 10 MEQ PO (08:00)
[2021-08-07 08:27] LABS: Iron 14 ug/dL (65-175); Iron Binding Capacity,Total 133 ug/dL (250-450); PERCENT IRON SATURATION 10.5 % (15.0-55.0)
[2021-08-07 08:28] LABS: Vitamin B12 1092 pg/mL (211-911)
[2021-08-07 08:51] LABS: Ferritin 301 ng/mL (26-388)
--- NOTE | 2021-08-07 09:45 | CASEMGMT ---
Social Work SW met with pt and introduced self and role of SW. Pt states he lives at home with his and has been receiving home health PT/OT/SN/RN CORRECTIONS through [facility]. Pt states the RN CORRECTIONS helps with bathing and he is able to complete all other ADLs. Pt also uses 4L of continuous oxygen from [employer]. Pt states he has been weaker at home recently but feels he can return home at discharge with continuation of home home. Pt to see PT/OT today. Of note, pt was in TCU in April 2021. LAURA Alvarado updated. Plan: home with continuation of home health. JOEY Zuñiga
[2021-08-07] MEDS: guaiFENesin 1,200 MG Tablet 1200 MG PO (09:59)
[2021-08-07] MEDS: Pantoprazole Sodium 40 MG Tablet PO (09:59)
[2021-08-07] MEDS: Cholecalciferol (VIT D3) 25 MCG TABLET (1,000 UNITS) PO (10:00)
[2021-08-07] MEDS: Cyanocobalamin 500 MCG Tablet 1000 MCG PO (10:00)
[2021-08-07] MEDS: Escitalopram Oxalate 10 MG Tablet PO (10:00)
[2021-08-07] MEDS: Menthol/Lanolin/Calamine/Znox 113 GM Tube 1 APPLIC TOPICAL (10:03)
[2021-08-07 11:45] LABS: Bedside Glucose 121 mg/dL (74-106)
[2021-08-07 11:51] VITALS: RESP 18
[2021-08-07 13:06] LABS: Hematocrit 27.3 % (40-54); Hemoglobin 8.7 g/dL (13.0-16.5)
[2021-08-07 13:38] VITALS: BP 118/52; PULSE 102; RESP 18; TEMP 36.8; O2SAT 97
--- NOTE | 2021-08-07 14:05 | DS.PCM_ITS ---
Providers Date of Admission: 08/06/21 Primary Care Physician: Dr. Donna Will MD Reason For Visit: GENERALIZED WEAKNESS Diagnosis Discharge Diagnosis (1) Generalized weakness: Status: Acute Code(s): R53.1 - Weakness (2) Pneumonia: Status: Acute Code(s): J18.9 - Pneumonia, unspecified organism Medications at Discharge Home Medications aspirin 81 mg tablet,delayed release 81 mg PO DAILY 09/28/19 cholecalciferol (vitamin D3) 25 mcg (1,000 unit) capsule 25 mcg PO DAILY 07/17/20 nitroglycerin 0.4 mg sublingual tablet 0.4 mg SUBLINGUAL Q5M PRN #30 tab 09/25/20 cyanocobalamin (vitamin B-12) 1,000 mcg capsule 1,000 mcg PO DAILY 01/29/21 ferrous sulfate 325 mg PO BID 04/26/21 ipratropium 0.5 mg-albuterol 3 mg (2.5 mg base)/3 mL nebulization soln 3 ml INHALATION Q4H PRN PRN #180 ml 06/18/21 Nebulizer #1 ea 06/19/21 atorvastatin 40 mg tablet 40 mg PO QHS 30 Days #90 tab 06/21/21 escitalopram oxalate 10 mg tablet 10 mg PO DAILY 30 Days #90 tab 06/21/21 mirtazapine 15 mg tablet 7.5 mg PO QHS 30 Days #90 tab 06/21/21 pantoprazole 40 mg tablet,delayed release 40 mg PO BID 30 Days #180 tab 06/21/21 potassium chloride 10 meq PO DAILY@0800 08/06/21 calcium carbonate [Calcium 600] 600 mg PO BID #60 tab 08/07/21 metoprolol tartrate 12.5 mg PO BID #0 tab 08/07/21 Hospital Course Summary of Care Provided Minutes Spent on Discharge: 45 Hospital Course: Patient is a 70-year-old presented with progressive generalized weakness 1. Physical deconditioning - Requested for PT OT eval and social science manager to assist with discharge planning 2. Pneumonia ? Patient was treated as outpatient with oral antibiotics. CT of the chest obtained demonstrated patchy infiltrate in the posterior aspect of the left upper lobe as well as bilateral lower infiltrate. Did continue with antibiotics ? 08/07/2021; patient viral respiratory panel came back positive for rhinovirus. Antibiotics subsequently discontinued 3. Chronic hypoxic respiratory failure ? Secondary to suspected pulmonary fibrosis from patient COVID-19 infection at the beginning of the year. Patient currently on supplemental oxygen 4. 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 Previously treated with apixaban. Patient did not tolerate apixaban as a result of GI bleed he underwent IVC filter placement on 05/02/2021 5. Severe protein calorie malnutrition ? Evidenced by decreased oral intake decreased energy level as well as hypoalbuminemia this is a result of patient multiple comorbidities. Consult has been placed to dietitian 6. Hypocalcemia ? Secondary to hypoalbuminemia ? Patient did receive supplemental calcium via IV as well as prescription written for oral calcium on discharge 7. Anemia - Secondary to chronic disorder monitoring H&H and transfuse if patient becomes symptomatic or hemoglobin falls below 7 ? 08/07/2021. Patient iron studies consistent with iron deficiency anemia did start parenteral iron ? Patient repeat hemoglobin came up to 6.4 8.. Diabetes mellitus type II -patient's oral hypoglycemics held. Placed on long acting insulin, Accu-Cheks a.c. and at bedtime and covered with sliding scale insulin 9. Rheumatoid arthritis Patient previously treated with rituximab as outpatient 10.. Non Hodgkin's lymphoma ?Apparently in remission 11.. Coronary artery disease ?With previous PCI of an LAD RCA and mid circumflex lesions 12.. Dyslipidemia ?Per history currently not on any statin therapy 12. Hypertension - Blood pressure low on admission antihypertensives subsequently held 13. Depression ? Patient is on SSRI 14. Previous history of GI bleed ? Patient is on PPI 15. DVT prophylaxis - Lovenox ? 08/07/2021 Lovenox discontinued given significant drop in patient hemoglobin level Physical Exam Narrative GENERAL: cooperative but frail looking HEENT: Atraumatic; EYES; Anicteric, Normal Conjunctiva NECK; supple, normal thyroid, RESPIRATORY: Diminished to auscultation CARDIOVASCULAR: Regular S1 S2, GI: soft, normoactive bowel sounds, : No Renal angle tenderness; EXTREMITIES: No edema, no clubbing, MUSCULOSKELETAL: no muscle wasting NEURO: Awake; no lateralizing signs. SKIN: No Rash PSYCH; Flat affect Medical Records Data Medical Nutrition Assessment Dietitian: Malnutrition Criteria Met Start: 08/07/21 11:03 Freq: Status: Active Protocol: Document 08/07/21 11:27 RMA (Rec: 08/07/21 11:27 RMA [id number]) Nutrition Malnutrition Evidence of Malnutrition Exists Yes Malnutrition (severe): Acute Illness/Injury,Chronic Evidenced By Suboptimal Energy Intake ( Severe),Weight Loss (Severe), Physical Changes (Moderate) Clinical Problem Chronic Disease or Condition Related Malnutrition Etiology Severe protein-calorie malnutrition in the context of acute on chronic disease related to inadequate oral intake Signs/Symptoms as evidenced by greater than 25% weight loss x 12 months, PO meeting less than 50% estimated nutrition needs and mild to moderate muscle/fat wasting in the face, orbitals, clavicle and temporal regions Status Active Problem Recommendation Dietitian Recommendations/Changes Will adjust diet to 2200 calorie/consistent carbohydrate diet. Will add 120 ml chocolate ensure enlive 4 times per day w/ medpass for tolerance. Change ONS to Glucerna shake as needed depending on blood glucose levels. If weight continues to decline and PO does not improve, may need to consider enteral nutrition support to supplement PO. Weight / BMI Weight Weight: 80.7 kg Body Mass Index (BMI) 24.8 ABG / Lab / Microbiology Data Result Diagrams: 08/07/21 12:52 08/07/21 05:05 Laboratory: Laboratory Results - last 24 hr 08/06/21 17:05: POC Glucose 109 H 08/06/21 21:20: Urine Color Yellow, Urine Clarity Sl. Cloudy, Urine pH 6.0, Ur Specific [place] 1.015, Urine Protein 15 H, Urine Glucose (UA) Normal, Urine Ketones Negative, Urine Occult Blood 25 H, Urine Nitrite Negative, Urine Bilirubin Negative, Urine Urobilinogen Normal, Ur Leukocyte Esterase 500 H, Urine RBC 5-10 SEEN, Urine WBC >100 SEEN, Ur Squamous Epith Cells 0-5 SEEN, Urine Bacteria 1+, Urine Mucus 0 SEEN, Urine Yeast 4+ 08/06/21 21:20: POC Glucose 151 H 08/07/21 05:05: WBC 8.1, RBC 2.63 L, Hgb 7.0 L, Hct 22.3 L, MCV 84.8, MCH 26.6 L , MCHC 31.4 L, RDW Std Deviation 47.6 H, RDW Coeff of [place] 15.5 H, Plt Count 206, MPV 10.1, Immature Gran % (Auto) 0.400, Neut % (Auto) 67.5, Lymph % (Auto) 19.6, [place] % (Auto) 11.6 H, Eos % (Auto) 0.7, Baso % (Auto) 0.2, Absolute Neuts (auto) 5.5, Absolute Lymphs (auto) 1.59, Nucleated RBC % 0 08/07/21 05:05: Sodium 142, Potassium 3.6, Chloride 113 H, Carbon Dioxide 22.0, Anion Gap 7, BUN 23 H, Creatinine 0.78, Estim Creat Clear Calc 72.16, Est GFR (MDRD) Af Amer 126, Est GFR (MDRD) Non-Af 104, BUN/Creatinine Ratio 29.4 H, Glucose 131 H, Calcium 5.4 L* 08/07/21 06:49: POC Glucose 126 H 08/07/21 07:34: Vitamin B12 1092 H 08/07/21 07:34: Iron 14 L, TIBC 133 L, Iron Saturation 10.5 L, Ferritin 301 08/07/21 07:34: Blood Type AB POSITIVE, Antibody Screen NEGATIVE 08/07/21 11:39: POC Glucose 121 H 08/07/21 12:52: Hgb 8.7 L, Hct 27.3 L Microbiology: Microbiology 08/07/21 08:29 Stool Stool Occult Blood ([facility]) - Final 08/06/21 21:20 Urine, Clean Catch Legionella Antigen - Final 08/06/21 21:20 Urine, Clean Catch Streptococcus pneumoniae Antigen (M - Final 08/06/21 17:30 Mucosa - Nose Respiratory Panel (PCR) - Final Rhinovirus Radiography Diagnostic Testing: Radiology Impression Chest CT 08/06/21 14:16 IMPRESSION: Patchy infiltrates in the posterior aspect of the left upper lobe as well as in the lower lobes worse on the left side with small bilateral pleural effusions. There has been improvement as compared to prior study dated 04/29/2021. Electronically Signed: Brett Fontanez MD at 15:04 EDT , D/C Instructions Discharge Diet: No restrictions Discharge Activity: Return to Normal Activity Call your doctor if you observe: Fever of 101 or Higher, Shortness of breath, Fainting spells and Chest pain Meaningful Use Info Meaningful Use Diagnoses (Choose all that apply): None applicable Discharge Plan Admission Admit Date/Time: 08/06/21 15:32 Attending Provider: Jordan Ortiz Primary Care Provider: Donna Will Discharge Orders/Prescriptions Prescriptions: New calcium carbonate [Calcium 600] 600 mg calcium (1,500 mg) tablet 600 mg PO BID Qty: 60 RF: 0 Continued aspirin [Adult Aspirin Regimen] 81 mg tablet,delayed release (DR/EC) 81 mg PO DAILY RF: 0 cholecalciferol (vitamin D3) 25 mcg (1,000 unit) capsule 25 mcg PO DAILY RF: 0 nitroglycerin [Nitrostat] 0.4 mg tablet, sublingual 0.4 mg SUBLINGUAL Q5M PRN (Reason: chest pain) Qty: 30 RF: 0 cyanocobalamin (vitamin B-12) 1,000 mcg capsule 1,000 mcg PO DAILY RF: 0 ferrous sulfate 325 mg (65 mg iron) tablet 325 mg PO BID RF: 0 potassium chloride 10 mEq tablet,ER particles/crystals 10 meq PO DAILY@0800 RF: 0 ipratropium-albuterol 0.5 mg-3 mg(2.5 mg base)/3 mL solution for nebulization 3 ml inhalation Q4H PRN PRN (Reason: SOB &/OR WHEEZING) Qty: 180 RF: 6 (DME) Nebulizer See Rx Instructions .ROUTE .MEDSUPPLY Qty: 1 RF: 0 atorvastatin 40 mg tablet 40 mg PO QHS 30 Days Qty: 90 RF: 3 escitalopram oxalate 10 mg tablet 10 mg PO DAILY 30 Days Qty: 90 RF: 3 mirtazapine [Remeron] 15 mg tablet 7.5 mg PO QHS 30 Days Qty: 90 RF: 3 pantoprazole 40 mg tablet,delayed release (DR/EC) 40 mg PO BID 30 Days Qty: 180 RF: 3 Changed metoprolol tartrate 25 mg tablet 12.5 mg PO BID Qty: 0 RF: 0 Referrals / Follow Up: Donna Will MD [Primary Care Provider] - In 1 Week Disposition Disposition (needs filled in before D/C Order can be placed): Home, Self Care Charges/Coding Visit Charges OBSV E&M: 54118 Observation care discharge
--- NOTE | 2021-08-07 14:51 | CASEMGMT ---
Faxed H&P and dc summary to [facility] at this time.
[2021-08-07] MEDS: 0.9% Saline Lock 10 ML Syringe IV (15:39)
[2021-08-07 16:45] LABS: Bedside Glucose 146 mg/dL (74-106)
[2021-08-07 18:22] VITALS: BP 128/76; PULSE 100; RESP 18; TEMP 36.6; O2SAT 98
== END 2021-08-07 18:41 | disposition home health service (06) ==
LOC: ED 15:35 → MS3 15:43
PROVIDERS: Admitting Provider Internal Medicine; Emergency Provider Emergency Medicine; PCP Internal Medicine; Visit Provider Internal Medicine
DX: J12.89 Other viral pneumonia (principal); E43 Unspecified severe protein-calorie malnutrition; M06.9 Rheumatoid arthritis, unspecified; I26.99 Other pulmonary embolism without acute cor pulmonale; J44.9 Chronic obstructive pulmonary disease, unspecified; J96.11 Chronic respiratory failure with hypoxia; E11.9 Type 2 diabetes mellitus without complications; E78.5 Hyperlipidemia, unspecified; E83.51 Hypocalcemia; Z79.82 Long term (current) use of aspirin; I10 Essential (primary) hypertension; E88.09 Other disorders of plasma-protein metabolism, not elsewhere classified; I25.10 Atherosclerotic heart disease of native coronary artery without angina pectoris; D63.8 Anemia in other chronic diseases classified elsewhere; R62.7 Adult failure to thrive; Z87.891 Personal history of nicotine dependence; Z68.24 Body mass index [BMI] 24.0-24.9, adult; Z79.899 Other long term (current) drug therapy; Z86.16 Personal history of COVID-19; Z99.81 Dependence on supplemental oxygen; M19.90 Unspecified osteoarthritis, unspecified site; D50.9 Iron deficiency anemia, unspecified; Z85.72 Personal history of non-Hodgkin lymphomas; B97.89 Other viral agents as the cause of diseases classified elsewhere
CPT/HCPCS: 36415; 71045; 71250; 80048; 80076; 81001; 82274; 82330; 82607; 82728; 82962; 83540; 83550; 85014; 85018; 85025; 86850; 86900; 86901; 87040; 87449; 87633; 93005; 94640; 94762; 96361; 96365; 96366; 96367; 97166; 97802; 99218; 99285; J7030; J7050; A4216; G0378; J0610; J0696; J2916

== ENCOUNTER → 2021-09-04 | Outpatient (CLI) | payer MEDICARE, SELFPAY ==
--- NOTE | 2021-09-04 13:15 | VDLE_ITS ---
Reason For Study: Increased leg swelling RIGHT LEFT GSV is normal. GSV is normal. CFV is compressible, spontaneous, phasic, CFV is compressible, spontaneous, phasic, competent and demonstrates normal competent, and demonstrates normal augmentation. augmentation. FV is compressible, spontaneous, phasic, FV is compressible, spontaneous, phasic, competent and demonstrates normal competent and demonstrates normal augmentation. augmentation. POP V is compressible, spontaneous, phasic, POP V is compressible, spontaneous, phasic, competent and demonstrates normal competent and demonstrates normal augmentation. augmentation. T/P Trunk is compressible. T/P Trunk is compressible. PTV is compressible. PTV is compressible. RT PerV is compressible. LT PerV is compressible. Procedure This is a venous duplex using B-mode, color flow and spectral Doppler. Exam performed in department. Compared to 05/01/2021. A preliminary report was called and/or faxed to [facility]. VL/Venous Duplex US - Sharad Extrem Interpretation Summary No evidence for acute deep venous thrombosis bilateral lower extremities with p atent and compressible bilateral great saphenous veins. Resolution left lower extremity f rom the previous examination of May 01, 2021 Ordering Physician: Wilberto Huerta Referring Physician: Donna Will M.D. Performed By: Brittani العلي RVT
== END | disposition home or self-care (01) ==
LOC: CVS 13:13
PROVIDERS: PCP Internal Medicine; Visit Provider Surgery
DX: M79.89 Other specified soft tissue disorders (principal)
CPT/HCPCS: 93970

== ENCOUNTER 2021-10-01 13:58 | Inpatient (IN) | payer MEDICARE, SELFPAY ==
[2021-10-01] VITALS (10 sets, daily range): BP systolic 100–118; BP diastolic 55–66; PULSE 73–84; RESP 16–26; TEMP 36.2–36.9; O2SAT 88–97; BMI 26.1; BMI 25.7
--- NOTE | 2021-10-01 14:26 | CT_ITS ---
STUDY: CT BRAIN WITHOUT CONTRAST REASON FOR EXAM: Male, 71 years old. Trauma, vomiting RADIATION DOSAGE (If Supplied By Facility): CTDIvol = ( 44.99 ) mGy, DLP = ( 880.47 ) mGycm TECHNIQUE: Transaxial CT imaging of the brain was performed without administration of intravenous contrast material. Individualized dose optimization techniques were used for this CT. COMPARISON: Comparison is made with prior examination dated 03/23/2021. FINDINGS: Normal soft tissue structures. Normal calvarium. There is mild cerebral atrophy with widening of the extra-axial spaces and ventricular dilatation. There are areas of decreased attenuation within the white matter tracts of the supratentorial brain, consistent with microvascular disease changes. Normal basal ganglia and thalami. Normal brainstem. Normal cerebellum. There is no intracranial hemorrhage. There are no findings of an acute ischemic infarction. Atherosclerotic calcification of the vertebral arteries and cavernous portions of the internal carotid arteries bilaterally. Partial opacification of the right maxillary sinus. There is opacification of the right sphenoid sinus. CT/Brain/Head without Contrast IMPRESSION: Chronic involutional changes of the brain. Partial opacification of the right maxillary sinus with opacification of the right sphenoid sinus. Electronically Signed: Brett Fontanez MD at 15:03 EDT ,
--- NOTE | 2021-10-01 14:26 | EKG12_ITS ---
Test Reason : SOB Blood Pressure : / mmHG Vent. Rate : 075 BPM Atrial Rate : 075 BPM P-R Int : 142 ms QRS Dur : 092 ms QT Int : 408 ms P-R-T Axes : 054 030 041 degrees QTc Int : 455 ms Normal sinus rhythm Normal ECG Confirmed by JOSEFINA TEIXEIRA, SAL ([id number]), medical transcription editor AVINASH MARTINEZ ([id number]) on 10/03/2021 12:52:02 PM Referred By: PL Confirmed By:SAL ROCHA MD
--- NOTE | 2021-10-01 14:28 | EDS_ITS ---
HPI History of Present Illness Chief Complaint: Shortness of Breath Informant: patient Narrative Narrative: Patient presents with several complaints. His primary is some mild dyspnea. Patient did have a mechanical trip and fall on oxygen tubing on Friday. He l anded on his right side. He states he did hit his head but no loss of consciousness. He does not feel as though he hurt his chest in the fall although he did land a little bit on the right side. He was not going to be seen for that. Patient has noted some increased dyspnea over the last few days. This is separate from the fall. I find out he did have pulmonary embolus in March. He had a CT in April that showed clearing. It sounds like he likely was on anticoagulation but stopped due to GI bleed and anemia. He is still anemic and they are watching this. He is only on baby aspirin now. He has had a weight gain of 18 pounds over the last month or so. However, he had lost over 75 pounds after having COVID in February. I also find out that he was on Lasix for about 7 days and this was stopped about a week ago. He does not know if he has been diagnosed with CHF. He is on 3 L of oxygen. His normal levels are about 92 to 94% throughout the day. Today they were noted to be in the 80s and he had more crackles. He has a slight cough but no hemoptysis. His sputum is slightly yellow. He has no fevers. No peripheral edema. Patient has had COVID vaccines and 1 booster. Patient did have an episode of vomiting Friday night. He is not nauseated now. He has not had blood in the vomitus. He has not seen black or bloody stools. Nausea is not an issue at this time. [facility] Medical History Acute respiratory failure with hypoxia Allergic rhinitis Arthritis Asthma Atherosclerosis of coronary artery of [place] heart without angina pectoris Cancer Chronic bronchitis Colon polyp COPD (chronic obstructive pulmonary disease) COVID-19 in immunocompromised patient Diabetes DVT (deep venous thrombosis) (05/01/21) Essential hypertension FTT (failure to thrive) in adult Gastritis GI bleed (04/2021) History of basal cell carcinoma History of pilonidal cyst History of pulmonary embolus (PE) (04/30/21) Hyperglycemia Nicotine dependence, cigarettes, uncomplicated Non-Hodgkin lymphoma Obesity Physical debility Pneumonia Positive colorectal cancer screening using Cologuard test RA (rheumatoid arthritis) Rhinovirus Tobacco abuse Type 2 diabetes mellitus 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 complications Home Medications aspirin 81 mg tablet,delayed release (Adult Aspirin Regimen) 81 mg PO DAILY heart health 09/28/19 [History Last Taken 08/06/21] cholecalciferol (vitamin D3) 25 mcg (1,000 unit) capsule 25 mcg PO DAILY vitamin 07/17/20 [History Last Taken 08/06/21] nitroglycerin 0.4 mg sublingual tablet (Nitrostat) 0.4 mg sublingual Q5M PRN chest pain #30 tabs 09/25/20 [Rx Last Taken Unknown] cyanocobalamin (vitamin B-12) 1,000 mcg capsule 1,000 mcg PO DAILY vitamin 01/29/21 [History Last Taken 08/06/21] ferrous sulfate 325 mg (65 mg iron) tablet 325 mg PO BID iron supplement 04/26/21 [History Last Taken 08/06/21] ipratropium 0.5 mg-albuterol 3 mg (2.5 mg base)/3 mL nebulization soln 3 ml inhalation Q4H PRN PRN SOB &/OR WHEEZING #180 mL 06/18/21 [Rx Last Taken 08/06/21] Nebulizer #1 ea 06/19/21 [Rx Last Taken Unknown] atorvastatin 40 mg tablet 40 mg PO QHS cholesterol 30 days #90 tabs 06/21/21 [Rx Last Taken 08/05/21] escitalopram oxalate 10 mg tablet 10 mg PO DAILY mood 30 days #90 tabs 06/21/21 [Rx Last Taken 08/06/21] mirtazapine 15 mg tablet (Remeron) 7.5 mg PO QHS bm 30 days #90 tabs 06/21/21 [Rx Last Taken 08/05/21] pantoprazole 40 mg tablet,delayed release 40 mg PO BID acid reflux 30 days #180 tabs 06/21/21 [Rx Last Taken 08/06/21] potassium chloride 10 mEq tablet,extended release(part/cryst) 10 meq PO DAILY@0800 08/06/21 [History Last Taken 08/06/21] calcium carbonate 600 mg calcium (1,500 mg) tablet (Calcium) 600 mg PO BID #60 tabs 08/07/21 [Rx Last Taken Unknown] furosemide 20 mg tablet (Lasix) 20 mg PO DAILY 09/03/21 [History Last Taken Unknown] metoprolol tartrate 25 mg tablet 25 mg PO BID BP 09/03/21 [History Last Taken Unknown] Allergy/AdvReac Type Severity Reaction Status Date / Time levofloxacin [From Levaquin] AdvReac Intermediate diarrhea, Verified 09/03/21 13:53 dizziness, GI upset, weakness Family History Father Arthritis Bleeding disorder Hypertension Kidney disease Cancer Skin Anemia blood clots Emphysema lung Mother Colon cancer Cancer Lung Cancer Diabetes Brother Thyroid disorder Surgical History History of coronary artery stent placement (10/22/13) History of excision of pilonidal cyst History of thymectomy Hx of lymph node excision Presence of IVC filter (04/2021) Social History household members: spouse Smoking Status: Former smoker second hand exposure: Yes quit status: considering quitting alcohol intake: current alcohol intake frequency: holidays/special occasions only substance use type: does not use caffeine: Yes Type: coffee Number of servings: 3 what type of physical activity do you participate in: none frequency: does not exercise seatbelt use: always ROS ROS ED Constitutional Constitutional ED: Denies chills, fever(s) or sweats Eyes Eyes: Denies change in vision ENT ENT ED: Denies rhinorrhea Cardiovascular Cardiovascular: Denies chest pain or palpitations Respiratory/Chest Respiratory/Chest: Reports cough, dyspnea, dyspnea on exertion and sputum Gastrointestinal Gastrointestinal: Reports nausea and vomiting; Denies abdominal pain Genitourinary Genitourinary ED: Denies dysuria or hematuria Musculoskeletal Musculoskeletal: Denies arthralgias or myalgias Integumentary Denies rash Neurologic Neurologic: Denies headache(s), paresthesias or weakness Endocrine Endocrinology: Denies polydipsia or polyuria Hematologic/Lymphatic Hematologic/Lymphatic: Denies easy bleeding or easy bruising Allergic/Immunologic Allergic/Immunologic ED: Denies urticaria EXAM Physical Exam Const Vital Signs: 10/01/21 14:04 10/01/21 14:15 10/01/21 14:20 Temperature 97.2 F L Temperature Source Temporal Pulse Rate 81 Respiratory Rate 16 Respiratory Pattern Blood Pressure 118/55 L Blood Pressure Mean 76 Pulse Ox 92 Oxygen Delivery Method Nasal Cannula Nasal Cannula Nasal Cannula Oxygen Flow Rate (L/min) 3 3 5 10/01/21 14:56 10/01/21 16:36 Temperature Temperature Source Pulse Rate 73 74 Respiratory Rate 18 26 H Respiratory Pattern Normal Blood Pressure 100/57 L Blood Pressure Mean 71 Pulse Ox 95 Oxygen Delivery Method Nasal Cannula Oxygen Flow Rate (L/min) 4 Positive well nourished and well developed Constitutional Narrative: Patient is comfortable in the bed. His breathing is easy and unlabored. His saturations do balance between 88 and 90% on his 3 L. General Appearance ED: well developed HEENT Reports moist mucous membranes HEENT Narrative: Patient does have abrasion/contusion on his right forehead area. Eyes EOMs intact bilaterally Neck no JVD Chest Wall Chest Narrative: I see no contusions abrasions or crepitance. No tenderness. Resp Resp Narrative: Patient does have some mild basilar crackles about one third of the way up. He also has some slight wheezing that I heard more on the left than the right. No coughing while I am in the room. Auscultation: rales and wheezes Cardio regular rate and regular rhythm GI non-tender, non-distended and no masses Back/Spine no CVA tenderness Neuro oriented x3 Neuro Narrative: Patient is fully awake alert oriented and a good informant for most details. Sensorium / Orientation: alert and oriented to person Psych mental status grossly normal Skin Trauma: abrasion; Negative for laceration MDM MDM MDM Narrative Medical decision making narrative: Patient's x-ray read no acute process. There may be some very subtle increased markings on the left relative to the right but no defined infiltrative process. His white count is higher than his normal. Hemoglobin is about baseline. Electrolytes also show elevated creatinine. However, he was on Lasix until just this past week so this may be improving. BNP was not markedly elevated and does not justify his symptoms or hypoxia. Troponins negative. Lactate is normal. I discussed options with the patient. We were considering CTA. However, he does have a relatively new IVC filter that was placed about 5 months ago. Further information from his states that he is coughing more than he states. He is bringing up yellow sputum. His activity is gotten decreased and he is sleeping more. His appetite is down the for the last 2 days. Neither of them have noted a fever. His COVID and influenza are negative. But his cough, sputum production, overall weakness and hypoxia does point to a pneumonia so I will treat him as this. We walked him after his breathing treatment and he desaturated relatively easily to 88% on his oxygen. With this going on I do not think this he is appropriate to go home. I will discuss case with the hospitalist. We will discuss consideration of CT or CTA in light of the above information. Patient has desaturated to 85% even wearing his oxygen. We have tried breathing treatments. He is still desaturating with ambulation. Lab Data Attestation: I reviewed the patient's lab results. Labs: Laboratory Results - last 24 hr 10/01/21 10/01/21 10/01/21 14:30 14:30 14:30 WBC 13.9 H RBC 3.29 L Hgb 8.7 L Hct 28.7 L MCV 87.2 MCH 26.4 L MCHC 30.3 L RDW Std Deviation 49.9 H RDW Coeff of Rafael 15.5 H Plt Count 441 MPV 11.0 Immature Gran % (Auto) 0.900 Neut % (Auto) 70.1 H Lymph % (Auto) 12.[address] [place] % (Auto) 11.6 H Eos % (Auto) 4.5 Baso % (Auto) 0.6 Absolute Neuts (auto) 9.8 H Absolute Lymphs (auto) 1.71 Nucleated RBC % 0 Diff Path Review May foll Platelet Estimate ADEQUATE RBC Morphology NORM C+C Sodium 141 Potassium 4.1 Chloride 108 H Carbon Dioxide 27.0 Anion Gap 6 BUN 28 H Creatinine 1.48 H Estim Creat Clear Calc 48.05 Est GFR (MDRD) Af Amer 60 Est GFR (MDRD) Non-Af 50 L BUN/Creatinine Ratio 18.9 Glucose 158 H Lactic Acid Calcium 9.0 Troponin I High Sens 13 B-Natriuretic Peptide 244.9 H 10/01/21 14:30 WBC RBC Hgb Hct MCV MCH MCHC RDW Std Deviation RDW Coeff of Rafael Plt Count MPV Immature Gran % (Auto) Neut % (Auto) Lymph % (Auto) [facility] % (Auto) Eos % (Auto) Baso % (Auto) Absolute Neuts (auto) Absolute Lymphs (auto) Nucleated RBC % Diff Path Review Platelet Estimate RBC Morphology Sodium Potassium Chloride Carbon Dioxide Anion Gap BUN Creatinine Estim Creat Clear Calc Est GFR (MDRD) Af Amer Est GFR (MDRD) Non-Af BUN/Creatinine Ratio Glucose Lactic Acid 1.2 Calcium Troponin I High Sens B-Natriuretic Peptide Radiography Diagnostic Testing: Clinical Impression(s) from Imaging Studies Brain CT 10/01/21 14:26 IMPRESSION: Chronic involutional changes of the brain. Partial opacification of the right maxillary sinus with opacification of the right sphenoid sinus. Electronically Signed: Brett Fotnanez MD at 15:03 EDT , Chest X-Ray 10/01/21 14:44 IMPRESSION: Emphysema without pneumonia or atelectasis. Electronically Signed: Boston Myers MD at 16:36 EDT , EKG Initial EKG: Comments: EKG done for dyspnea read by me shows sinus rhythm with overall rate of 75. No ventricular ectopy. No acute ST elevation or depression. DE interval, QRS duration and QTc are normal. EKG is similar to 06 August of this year. Discharge Plan Dx/Rx/DC Orders Clinical Impression: Pneumonia, Hypoxia, Leukocytosis Disposition Disposition: Acute Care Hospital [facility]
[2021-10-01 14:43] LABS: Absolute Lymphocyte Count 1.71 X10^3/uL (0.83-4.51); Absolute Neutrophil Count 9.8 X10^3/uL (2.0-7.7); Basophil# 0.08 X10^3/uL; Basophil% 0.6 % (0-1); Eosinophil# 0.62 X10^3/uL; Eosinophils% 4.5 % (0-5); Hematocrit 28.7 % (40-54); Hemoglobin 8.7 g/dL (13.0-16.5); Lymphocyte # 1.71 X10^3/ul (0.83-4.51); Lymphocyte % 12.3 % (19-41); Mean Corp Hgb Conc 30.3 g/dL (32-36); Mean Corpuscular Hgb 26.4 pg (27.0-32.0); Mean Corpuscular Volume 87.2 fL (80-94); Monocyte# 1.61 X10^3/uL; Monocyte% 11.6 % (0-10); NRBC Flagged by Analyzer 0 % (0-5); Neutrophil # 9.76 X10^3/uL (2.7-7.7); Neutrophil % 70.1 % (47-70); POSITIVE DIFFERENTIAL YES; Platelet Count 441 K/mm3 (150-450); RBC Distribution Width CV 15.5 % (11.6-14.6); RBC Distribution Width SD 49.9 fl (35.1-43.9); Red Blood Count 3.29 M/mm3 (4.6-6.2); White Blood Count 13.9 K/mm3 (4.4-11.0)
[2021-10-01 14:44] LABS: Differential Indicated SCAN CRITERIA MET
--- NOTE | 2021-10-01 14:44 | RAD_ITS ---
STUDY: X-RAY CHEST REASON FOR EXAM: Male, 71 years old. SOB TECHNIQUE: Single AP portable view of the chest. COMPARISON: 05/29/2021 FINDINGS: Status post median sternotomy. There is hyperinflation of the lungs consistent with chronic obstructive lung disease (COPD). There is no demonstrated pleural abnormality. Normal size heart. Normal mediastinum and sho. Normal visualized pulmonary arteries. Normal visualized aortic arch and descending thoracic aorta. Normal visualized thoracic spine. Normal visualized ribs, clavicles, and shoulders. There is no demonstrated abnormality of the visualized soft tissue structures of the upper abdomen. RAD/Chest 1 View (Portable) IMPRESSION: Emphysema without pneumonia or atelectasis. Electronically Signed: Boston Myers MD at 16:36 EDT ,
[2021-10-01] MEDS: Ipratropium/Albuterol Sulfate 3 ML AMPUL.NEB INHALATION ×2 (14:56→20:40)
[2021-10-01 15:02] LABS: BNP,B-Type NATRIURETIC PEPTIDE 244.9 pg/mL (0-100)
[2021-10-01 15:03] LABS: Lactic Acid 1.2 mmol/L (0.4-1.9)
[2021-10-01 15:05] LABS: Anion Gap 6 (5-15); BUN 28 mg/dL (7-18); BUN/Creat Ratio 18.9 RATIO (10-20); Chloride 108 mmol/L (98-107); Creatinine, Serum 1.48 mg/dL (0.70-1.30); EST Glomerular Filtration Rate 50 mL/min (>60); Est Glom Filt Rate - Afr Amer 60 mL/min (>60); Estimated Creatinine Clearance 48.05 ml/min; Glucose 158 mg/dL (74-106); Potassium 4.1 mmol/L (3.5-5.1); Sodium Level 141 mmol/L (136-145); Troponin-I HS 13 pg/mL (3.0-78.0)
[2021-10-01 15:07] LABS: Platelet Estimate ADEQUATE (ADEQ); Red Cell Morphology NORM C+C NORMAL (NORM C&C)
--- NOTE | 2021-10-01 16:02 | ED.RN ---
XRAY called for chest xray results- stated they would call [facility].
--- NOTE | 2021-10-01 17:33 | PCM.HP.STD ---
HPI - General General Date of Admission: 10/01/21 Date of Service: 10/01/21 Chief Complaint: Dyspnea. HPI Narrative The patient is a 71 y/o M w/ PMHx: Pulmonary Fibrosis, COPD and Hx COVID-19 PNA with associated Chronic Hypoxic Respiratory Failure (3L NC), Chronic anemia/AOCD/Fe deficiency anemia, CAD s/p PCI LAD, RCA, mid-circ, Rheumatoid arthritits previously on rituximab, Diabetes mellitus type II, Non-Hodgkin's lymphoma in remission, HTN, HLD, Depression and Anxiety, Hx GI bleed, Former tobacco use, Hx VTE including DVT and BL PE (04/2021 LLE DVT with IVC Filter placement secondary to GI bleed with recent 08/07/21 admission with BL PE following with Dr. Huerta) who presents to the [facility] ED on 10/01/21 with history of ongoing mild dyspnea with a history of recent mechanical fall, tripped on his oxygen tubing the Friday prior landing on his right side with no loss of consciousness or head trauma however he did have some right-sided chest discomfort following with worsening dyspnea over the last couple days with reportedly an 18 pound weight gain over the last 4 weeks although he had prior significant weight loss secondary to COVID illness in February with an 75 pound weight loss at that time with history for unclear reason of stopping his Lasix approximately 1 week prior and worsening over the last several days with oxygenation dipping into the 80s with increased crackles with mildly slightly yellow productive cough occasionally with no fevers or chills nor any worsened peripheral edema and incidental episode of emesis on Friday night but no symptoms since and no nausea associated however given the myriad of events and his hypoxia prompted ED evaluation. Of note he was placed 09/01/21 on lasix 20 mg po daily x 7 days but this was not continued and only transiently used recently he notes. From prior review ECHO 04/23/21 with normal LV size, normal LV systolic function, EF 65%, stage I diastolic dysfunction, mean AV gradient 9 mmHg with mild aortic stenosis with contrast injection performed at that time. Work-up in the ED included T97.2, heart rate 81, BP 118/55 with most recent repeat 100/57, respiratory rate 16-26, 92 to 95% on 3 to 4 L nasal cannula, EKG with sinus rhythm with no acute evidence of ischemia, CBC with WC 13.9, hemoglobin 8.7, MCV 87.2, platelet 441 with left shift, BMP with chloride 108, BUN/creatinine 28/1.48, glucose 158, lactic acid 1.2, troponin 13, BNP 244.9, CT brain with chronic involutional changes with partial opacification of the right maxillary sinus as well as opacification of the right sphenoid sinus, chest x-ray with emphysematous type changes without any pneumonia or atelectasis evident, rapid COVID antigen negative, blood culture x2 pending per ED. Procalcitonin pending upon requested evaluation of patient. In the ED patient administered IV rocephin, azithromycin. [facility] Medical History Acute respiratory failure with hypoxia Allergic rhinitis Arthritis Asthma Atherosclerosis of coronary artery of [place] heart without angina pectoris Cancer Chronic bronchitis Colon polyp COPD (chronic obstructive pulmonary disease) COVID-19 in immunocompromised patient Diabetes DVT (deep venous thrombosis) (05/01/21) Essential hypertension FTT (failure to thrive) in adult Gastritis GI bleed (04/2021) History of basal cell carcinoma History of pilonidal cyst History of pulmonary embolus (PE) (04/30/21) Hyperglycemia Nicotine dependence, cigarettes, uncomplicated Non-Hodgkin lymphoma Obesity Physical debility Pneumonia Positive colorectal cancer screening using Cologuard test RA (rheumatoid arthritis) Rhinovirus Tobacco abuse Type 2 diabetes mellitus 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 complications Home Medications aspirin 81 mg tablet,delayed release (Adult Aspirin Regimen) 81 mg PO DAILY heart health 09/28/19 [History Last Taken 08/06/21] cholecalciferol (vitamin D3) 25 mcg (1,000 unit) capsule 25 mcg PO DAILY vitamin 07/17/20 [History Last Taken 08/06/21] nitroglycerin 0.4 mg sublingual tablet (Nitrostat) 0.4 mg sublingual Q5M PRN chest pain #30 tabs 09/25/20 [Rx Last Taken Unknown] ferrous sulfate 325 mg (65 mg iron) tablet 325 mg PO BID iron supplement 04/26/21 [History Last Taken 08/06/21] ipratropium 0.5 mg-albuterol 3 mg (2.5 mg base)/3 mL nebulization soln 3 ml inhalation Q4H PRN PRN SOB &/OR WHEEZING #180 mL 04/25/22 [Rx Last Taken 08/06/21] Nebulizer #1 ea 06/19/21 [Rx Last Taken Unknown] escitalopram oxalate 10 mg tablet 10 mg PO DAILY mood 30 days #90 tabs 06/21/21 [Rx Last Taken 08/06/21] mirtazapine 15 mg tablet (Remeron) 7.5 mg PO QHS bm 30 days #90 tabs 06/21/21 [Rx Last Taken 08/05/21] pantoprazole 40 mg tablet,delayed release 40 mg PO BID acid reflux 30 days #180 tabs 06/21/21 [Rx Last Taken 08/06/21] potassium chloride 10 mEq tablet,extended release(part/cryst) 10 meq PO DAILY@0800 vitamin 08/06/21 [History Last Taken 08/06/21] metoprolol tartrate 25 mg tablet 12.5 mg PO DAILY BP 09/03/21 [History Last Taken Unknown] atorvastatin 40 mg tablet 60 mg PO QHS cholesterol 10/01/21 [History Last Taken Unknown] Allergy/AdvReac Type Severity Reaction Status Date / Time levofloxacin [From Levaquin] AdvReac Intermediate diarrhea, Verified 09/03/21 13:53 dizziness, GI upset, weakness Family History Father Arthritis Bleeding disorder Hypertension Kidney disease Cancer Skin Anemia blood clots Emphysema lung Mother Colon cancer Cancer Lung Cancer Diabetes Brother Thyroid disorder Surgical History History of coronary artery stent placement (10/22/13) History of excision of pilonidal cyst History of thymectomy Hx of lymph node excision Presence of IVC filter (04/2021) Social History household members: spouse Smoking Status: Former smoker second hand exposure: Yes quit status: considering quitting alcohol intake: current alcohol intake frequency: holidays/special occasions only substance use type: does not use caffeine: Yes Type: coffee Number of servings: 3 what type of physical activity do you participate in: none frequency: does not exercise seatbelt use: always ROS ROS Narrative Admission Review of Systems: CONSTITUTIONAL: No weight loss, fever, chills, + weakness or fatigue. HEENT: Eyes: No visual loss, blurred vision, double vision or yellow sclerae. Ears, Nose, Throat: No hearing loss, sneezing, congestion, runny nose or sore throat. SKIN: No rash or itching, lesions, wounds. CARDIOVASCULAR: No chest pain, chest pressure or chest discomfort, palpitations, edema, orthopnea, syncopal events. RESPIRATORY: + shortness of breath, cough with occasional sputum, occasional wheezing, No hemoptysis. GASTROINTESTINAL: + anorexia, No nausea, vomiting or diarrhea, abdominal pain, melena, BRBPR. GENITOURINARY: No dysuria, frequency, urgency or retention. NEUROLOGICAL: No headache, dizziness, syncope, paralysis, ataxia, numbness or tingling in the extremities, focal weakness, change in bowel or bladder control, seizure. MUSCULOSKELETAL: + muscle, back pain, joint pain or stiffness. HEMATOLOGIC: + anemia, bleeding or bruising. LYMPHATICS: No enlarged nodes. No history of splenectomy. PSYCHIATRIC: + history of depression or anxiety. ENDOCRINOLOGIC: No reports of sweating, cold or heat intolerance. No polyuria or polydipsia. ALLERGIES: + history of asthma, hives, eczema or rhinitis. Vital Signs Vital Signs Vital Signs: 10/01/21 14:04 10/01/21 14:15 10/01/21 14:20 Temperature 97.2 F L Temperature Source Temporal Pulse Rate 81 Respiratory Rate 16 Respiratory Pattern Blood Pressure 118/55 L Blood Pressure Mean 76 Pulse Ox 92 Oxygen Delivery Method Nasal Cannula Nasal Cannula Nasal Cannula Oxygen Flow Rate (L/min) 3 3 5 10/01/21 14:56 10/01/21 16:36 Temperature Temperature Source Pulse Rate 73 74 Respiratory Rate 18 26 H Respiratory Pattern Normal Blood Pressure 100/57 L Blood Pressure Mean 71 Pulse Ox 95 Oxygen Delivery Method Nasal Cannula Oxygen Flow Rate (L/min) 4 Weight Weight: 187 lb 3.2 oz Body Mass Index (BMI) 26.1 Physical Exam Narrative Physical Examination: General: Awake, alert, oriented x 3, cooperative, fatigued but eating a meal and notes appetite improved, was reduced evening prior, seated upright in the ED bed, no acute distress. Skin: Normal color, normal turgor, no icterus, no cyanosis except occasional staged ecchymoses. HEENT: AT/NC, EOMI, PERRLA, mildly dry MM, no carotid bruits or marked JVD noted; however, thickened neck makes evaluation difficult. Lungs: Diminished, mild crackles, left greater than right, occasional expiratory wheeze, occasional harsh coughing with some productive sputum while in the room, no evidence of any respiratory distress. Heart: Currently regular rate and rhythm; no gallop, rub audible. Abdomen: Soft, NTTP, ND, currently mildly hyperactive BS, no obvious evidence of HSM. Extremities: No cyanosis, no clubbing, or markedly noted edema. Neurological: Patient awake, alert, oriented as noted, cognitive function appears baseline intact; pupils equally reactive to light and accommodation, cranial nerves II-XII grossly normal, moving all 4 extremities, no focal deficits, strength moderately to severely globally decreased Psychiatric: Affect appears flat, fatigued, no acute evidence of depressive or anxiety feelings. Results Lab / Micro Data Result Diagrams: 10/01/21 14:30 10/01/21 14:30 Labs: Laboratory Results - last 24 hr 10/01/21 14:30: WBC 13.9 H, RBC 3.29 L, Hgb 8.7 L, Hct 28.7 L, MCV 87.2, MCH 26.4 L, MCHC 30.3 L, RDW Std Deviation 49.9 H, RDW Coeff of Rafael 15.5 H, Plt Count 441, MPV 11.0, Immature Gran % (Auto) 0.900, Neut % (Auto) 70.1 H, Lymph % (Auto) 12.3 L, [place] % (Auto) 11.6 H, Eos % (Auto) 4.5, Baso % (Auto) 0.6, Absolute Neuts (auto) 9.8 H, Absolute Lymphs (auto) 1.71, Nucleated RBC % 0, Diff Path Review May foll, Platelet Estimate ADEQUATE, RBC Morphology NORM C+C 10/01/21 14:30: Sodium 141, Potassium 4.1, Chloride 108 H, Carbon Dioxide 27.0, Anion Gap 6, BUN 28 H, Creatinine 1.48 H, Estim Creat Clear Calc 48.05, Est GFR (MDRD) Af Amer 60, Est GFR (MDRD) Non-Af 50 L, BUN/Creatinine Ratio 18.9, Glucose 158 H, Calcium 9.0, Troponin I High Sens 13 10/01/21 14:30: B-Natriuretic Peptide 244.9 H 10/01/21 14:30: Lactic Acid 1.2 Micro: Microbiology 10/01/21 14:35 Nasal Secretion SARS-CoV-2 & FLU Antigen (Rapid) - Final Radiology Impression Brain CT 10/01/21 14:26 IMPRESSION: Chronic involutional changes of the brain. Partial opacification of the right maxillary sinus with opacification of the right sphenoid sinus. Electronically Signed: Brett Fontanez MD at 15:03 EDT , Chest X-Ray 10/01/21 14:44 IMPRESSION: Emphysema without pneumonia or atelectasis. Electronically Signed: Boston Myers MD at 16:36 EDT , Assessment & Plan Assessment/Plan (1) Hypoxia: (2) Pneumonia: PLAN: Plan The patient is a 71 y/o M w/ PMHx: Pulmonary Fibrosis, COPD and Hx COVID-19 PNA with associated Chronic Hypoxic Respiratory Failure (3L NC), Chronic anemia/AOCD/Fe deficiency anemia, CAD s/p PCI LAD, RCA, mid-circ, Rheumatoid arthritits previously on rituximab, Diabetes mellitus type II, Non-Hodgkin's lymphoma in remission, HTN, HLD, Depression and Anxiety, Hx GI bleed, Former tobacco use, Hx VTE including DVT and BL PE (04/2021 LLE DVT with IVC Filter placement secondary to GI bleed with recent 08/07/21 admission with BL PE following with Dr. Huerta) who presents to the [facility] ED on 10/01/21 with history of ongoing mild dyspnea with a history of recent mechanical fall, tripped on his oxygen tubing the Friday prior landing on his right side with no loss of consciousness or head trauma however he did have some right-sided chest discomfort following with worsening dyspnea over the last couple days with oxygenation dipping into the 80s with increased crackles with mildly slightly yellow productive cough occasionally with no fevers or chills. #1. Concern for Clinical Community Acquired Pneumonia complicated by Underlying COPD, Pulmonary fibrosis associated w/ COVID-19 and 07/2021 BL PE with Chronic Hypoxic Respiratory Failure (3L NC) with Acute Hypoxia (decreased to 85% on his baseline 3L NC, 87-88% in the ED): Will admit to [facility], maintain on oxygen with wean as tolerated to his home oxygen supplementation, continue ATC duonebs, PRN albuterol, maintain on IV Rocephin and Azithromycin, HOB, IS parameters w/ pending sputum cultures, request full respiratory viral panel, obtain COVID PCR to be cautious and urine antigens. Bld cx x 2 obtained in the ED. Procalcitonin pending. ECHO requested to be cautious as noted last 03/2021 with COVID, but again weight gain likely secondary to improved intake with profound weight loss when he was previously ill. #2. Mild acute renal insufficiency: Admission BUN/creatinine 28/1.48, baseline creatinine primarily 0.7-1.0, suspect likely with recent lasix transient 7 day usage although this is transient and filled earlier in August but used recently per his personal report. #3. Hx VTE, DVT and BL PE: Most recent event 07/2021 BL PE, prior DVT, history of notable GI bleed, s/p IVCF placement, following w/ Dr. Huerta, given history more consistent with clinical PNA, discussed with ED physician and deferred consideration CTPA, but could also consider if further concerns arise but given history would still at this time be a difficult candidate for anticoagulation. Continue baby asa only. #4. Diabetes mellitus type II: Noted history, not on regimen from current list, will obtain HgBA1c to be cautious, maintain in interim on ADA diet, accu checks with ISS until clarified. #5. CAD: Status post PCI, continue aspirin, metoprolol once clarified as noted, statin therapy. #6. Hypertension: BP low normal, clarifiying if remains on metoprolol, may continue with hold parameters if appropriate, PRN hydralazine. #7. Hyperlipidemia: Not on statin therapy, defer to outpatient #8. History Tobacco Abuse: Encouraged continued cessation, reports no usage as had prior incident smoking while on oxygen therapy. #9. History of non-Hodgkin's lymphoma: Considered in remission, encourage continued outpatient follow-up with oncology. #10. Chronic anemia/iron deficiency anemia with Hx GI bleed: We will continue iron supplementation, admission Hgb 8.7, baseline prior primarily 8-9 range, stable, continue to trend. Given GI bleed Hx not anticoagulation candidate, s/p IVCF placement, following w/ Dr. Huerta. #11. DVT prophylaxis: SCDs, cautiously use heparin given history as noted, low threshold to hold. #12. CODE status: Patient HCPOA is significant who is in the room and living will is currently in place. Discussed CODE status at length including difference between FULL code, DNR-CCA and DNR-CC status. Following discussions about the differences in these status, requested specifically DNR CCA, no intubation and was very adamant which was discussed at length and he understood these implications. Advanced Care Planning Face to Face Time: 16 minutes. Charges/Coding Visit Charges Inpatient E&M: 21805 Init Hosp L3 Procedures Hospitalists Procedures: 06462 Advncd Care Plan 30 Min
--- NOTE | 2021-10-01 17:49 | NURSING ---
DR PEARSON FOR DR BARNES
--- NOTE | 2021-10-01 18:15 | NURSING ---
MED SURG WHITE CLINICAL PNEUMONIA, HYPOXIA
[2021-10-01 18:24] LABS: Procalcitonin 0.21 ng/mL (0.00-0.09)
[2021-10-01] MEDS: Ceftriaxone 1 GM/50 ML BAG IV (20:38)
[2021-10-01] MEDS: 0.9% Normal Saline 1,000 ML 100 ML IV (20:38)
[2021-10-01] MEDS: Insulin Lispro 100 UNIT/ML INSULN.PEN SC (22:32)
[2021-10-01] MEDS: Atorvastatin Calcium 20 MG Tablet 60 MG PO (22:35)
[2021-10-01] MEDS: Pantoprazole Sodium 40 MG Tablet PO (22:36)
[2021-10-01] MEDS: Mirtazapine 15 MG Tablet 7.5 MG PO (22:36)
[2021-10-01] MEDS: Heparin Injection 5,000 UNITS/ML Syringe 5000 UNITS SC (22:41)
[2021-10-01 23:56] LABS: Bedside Glucose 236 mg/dL (74-106)
[2021-10-02] VITALS (7 sets, daily range): BP systolic 114–150; BP diastolic 56–65; PULSE 70–97; RESP 16–24; TEMP 36.5–36.9; O2SAT 90–97
[2021-10-02 06:29] LABS: Absolute Lymphocyte Count 1.26 X10^3/uL (0.83-4.51); Absolute Neutrophil Count 4.4 X10^3/uL (2.0-7.7); Basophil# 0.07 X10^3/uL; Basophil% 0.9 % (0-1); Eosinophil# 0.99 X10^3/uL; Eosinophils% 12.4 % (0-5); Hematocrit 25.9 % (40-54); Lymphocyte # 1.26 X10^3/ul (0.83-4.51); Lymphocyte % 15.7 % (19-41); Mean Corp Hgb Conc 30.9 g/dL (32-36); Mean Corpuscular Hgb 27.6 pg (27.0-32.0); Mean Corpuscular Volume 89.3 fL (80-94); Mean Platelet Vol. 10.3 fl (6.2-12.0); NRBC Flagged by Analyzer 0 % (0-5); Neutrophil # 4.43 X10^3/uL (2.7-7.7); Neutrophil % 55.3 % (47-70); Platelet Count 278 K/mm3 (150-450); RBC Distribution Width CV 15.7 % (11.6-14.6); RBC Distribution Width SD 51.6 fl (35.1-43.9)
[2021-10-02] MEDS: 0.9% Saline Lock 10 ML Syringe IV (06:39)
[2021-10-02] MEDS: Ipratropium/Albuterol Sulfate 3 ML AMPUL.NEB INHALATION ×3 (07:02→14:00)
[2021-10-02 07:06] LABS: ALB/GLOB Ratio 0.7 RATIO (0.9-2.4); AST(SGOT) 10 U/L (15-37); Alanine Aminotransfer ALT/SGPT 12 U/L (16-61); Albumin, Serum 2.2 g/dL (3.2-5.0); Alkaline Phosphatase 71 U/L (45-117); Anion Gap 6 (5-15); BUN 26 mg/dL (7-18); BUN/Creat Ratio 22.2 RATIO (10-20); Calcium,Total 8.2 mg/dL (8.5-10.1); Chloride 110 mmol/L (98-107); Creatinine, Serum 1.17 mg/dL (0.70-1.30); EST Glomerular Filtration Rate 65 mL/min (>60); Est Glom Filt Rate - Afr Amer 79 mL/min (>60); Estimated Creatinine Clearance 60.78 ml/min; Glucose 96 mg/dL (74-106); Potassium 3.9 mmol/L (3.5-5.1); Protein, Total 5.2 g/dL (6.4-8.2); Sodium Level 141 mmol/L (136-145)
[2021-10-02 07:15] LABS: Bedside Glucose 88 mg/dL (74-106)
[2021-10-02] MEDS: Pantoprazole Sodium 40 MG Tablet PO (09:07)
[2021-10-02] MEDS: Aspirin E.C. 81 MG Tablet PO (09:07)
[2021-10-02] MEDS: Ferrous Sulfate 325 MG Tablet PO (09:07)
[2021-10-02] MEDS: Potassium Chloride Oral Tablet 10 MEQ PO (09:07)
[2021-10-02] MEDS: Escitalopram Oxalate 10 MG Tablet PO (09:07)
[2021-10-02] MEDS: Calcium (Elemental) 500 MG Tablet PO (09:07)
[2021-10-02] MEDS: Heparin Injection 5,000 UNITS/ML Syringe 5000 UNITS SC (09:08)
[2021-10-02] MEDS: Furosemide 20 MG/2 ML VIAL IV (09:16)
--- NOTE | 2021-10-02 11:10 | CASEMGMT ---
Addendum entered by Ros Camarillo 10/02/21 15:53: TC from Sharyn BOSS at [facility]. She states she is currently seeing pt and is due to see pt again on Friday. Addendum entered by Ros Camarillo 10/02/21 15:28: TARAH DEL RIO notified that pt is not active with [facility]. TC to [facility], confirmed pt is active with legal secretary receptionist. Left message on Palliative Line regarding pt hospitalization and call back info. [phone]. Addendum entered by Ros Camarillo 10/02/21 14:53: Pt does not need an increase in oxygen orders. Addendum entered by Ros Camarillo 10/02/21 14:43: Faxed dc info to [facility] at this time. Addendum entered by Ros Camarillo 10/02/21 11:29: TC to Aashish at [facility] to make aware that pt is hospitalized and they are able to resume services upon dc. Email to Palliative Care to make aware pt is hospitalized as well. Original Note: TARAH DEL RIO Assessment: Face to Face with pt for initial transition planning/care coordination assessment. TARAH DEL RIO introduced self and role at [facility], pt voices understanding and consents to assessment. Pt is A/O x4 and answers all questions appropriately at this time. Pt with and great granddtr at bedside. Pt receiving a breathing tx currently. Care providers, pharmacy, and demographics verified/updated. Admitting Dx: hypoxia, pna PCP:Dannielle Piña from [facility] Specialists:Mani pulm; Priya, surgeon; Riaz, cardio Preferred Pharmacy: [facility] Insurance: [facility] Prescription Benefit: yes LW/HPOA: Pt has a LW/DPOA on file at [facility]. His DPOA is his , [place]. LNOK: [place], Living Arrangements: Pt lives with in a two story house with 2 steps to enter with a grab bar. Pt uses main level of home. Pt has an aide 2x/wk that assists with bathing. Pt reports he can dress himself. Pt denies concerns at home. Transportation: Pt provides him with transportation. DME/HHC/SNF: Pt has a FWW, rollator which he uses, hospital bed, BSC and oxygen through [employer]. Pt will bring in portable oxygen upon dc. Pt is current with [facility] with SN, PT and HEAD IRRIGATOR. Pt denies SNF stays. Pt states no concerns with going home at time of dc. Patient is also active with Palliative Care. He would like this to resume as well as his HHC. Pt states no further concerns/needs. Pt asks if he can go home. CM to follow. Advised pt to ask CM if any further question/concerns/needs arise, voices understanding. Pt Goal: Home with resumption of HHC. Plan: Home with resumption of HHC.
[2021-10-02 11:16] LABS: M R Staph aureus DNA By PCR Negative (Negative); Probe Check PASS; Specimen Processing Control PASS
[2021-10-02] MEDS: Insulin Lispro 100 UNIT/ML INSULN.PEN SC (11:23)
[2021-10-02 11:51] LABS: Bedside Glucose 246 mg/dL (74-106)
--- NOTE | 2021-10-02 12:50 | DS.PCM_ITS ---
Providers Date of Admission: 10/01/21 Date of Discharge: 10/02/21 Primary Care Physician: Dr. Donna Will MD Reason For Visit: HYPOXIA, PNA Diagnosis Discharge Diagnosis (1) Hypoxia: Status: Acute Code(s): R09.02 - Hypoxemia (2) Pneumonia: Status: Acute Code(s): J18.9 - Pneumonia, unspecified organism Medications at Discharge Home Medications aspirin 81 mg tablet,delayed release (Adult Aspirin Regimen) 81 mg PO DAILY heart health 09/28/19 cholecalciferol (vitamin D3) 25 mcg (1,000 unit) capsule 25 mcg PO DAILY vitamin 07/17/20 nitroglycerin 0.4 mg sublingual tablet (Nitrostat) 0.4 mg sublingual Q5M PRN chest pain #30 tabs 09/25/20 ferrous sulfate 325 mg (65 mg iron) tablet 325 mg PO BID iron supplement 04/26/21 ipratropium 0.5 mg-albuterol 3 mg (2.5 mg base)/3 mL nebulization soln 3 ml inhalation Q4H PRN PRN SOB &/OR WHEEZING #180 mL 06/18/21 escitalopram oxalate 10 mg tablet 10 mg PO DAILY mood 30 days #90 tabs 06/21/21 mirtazapine 15 mg tablet (Remeron) 7.5 mg PO QHS bm 30 days #90 tabs 06/21/21 pantoprazole 40 mg tablet,delayed release 40 mg PO BID acid reflux 30 days #180 tabs 06/21/21 potassium chloride 10 mEq tablet,extended release(part/cryst) 10 meq PO DAILY@0800 vitamin 08/06/21 metoprolol tartrate 25 mg tablet 12.5 mg PO DAILY BP 09/03/21 atorvastatin 40 mg tablet 60 mg PO QHS cholesterol 10/01/21 amoxicillin 875 mg-potassium clavulanate 125 mg tablet 1 tab PO BID #12 tabs 10/02/21 Hospital Course Operations None Procedures 2-D Echocardiogram Summary of Care Provided Minutes Spent on Discharge: 27 Hospital Course: Mr. Quintana is a 71-year-old white male who presents emergency department at [facility] on 10/01/2021 with progressively worsening shortness of breath. Patient recently had a mechanical fall 2 days prior to admission and tripped on his oxygen tubing. Over the last several days prior to admission he had noted his oxygen saturations were dipping down into the 80s with increased crackles, cough and mildly yellow sputum production. The patient denied any fev ers or chills. He had an emesis on Friday night after eating some meat loaf. He noted that his shortness of breath was more abrupt in onset than typical. He had no further nausea vomiting or any diarrhea. Work-up in the emergency department showed a temperature of 97.2, heart rate of 81, blood pressure of 118/55 and a respiratory rate anywhere from 16-26. Oxygen saturations were 92 to 95% on 3 to 4 L nasal cannula. Patient's baseline oxygen requirements are 3 L at rest and 4 L with exertion. His EKG was unremarkable. His CBC showed a leukocytosis with a white count of 13.9 and a left shift. His BMP was overall unremarkable. He had a normal lactic acid, troponin and his BNP was mildly elevated at 244.9. CT of his brain showed chronic involutional changes with partial opacification of the right maxillary sinus as well as opacification of the right sphenoid sinus. His chest x-ray showed emphysematous type changes without any signs of pneumonia or atelectasis. His rapid COVID was negative. Blood cultures were ordered and pending. His procalcitonin was slightly elevated at 0.21. He was placed on IV antibiotics with azithromycin and ceftriaxone admitted to medical floor. Strep pneumo and Legionella antigens were negative. Rapid flu was negative. Respiratory panel was performed and negative. Sputum culture was performed and had identified a gram-negative luiza lactose pediatric dentist. An echocardiogram was ordered and pending upon discharge however given his improvement I feel that this is most likely stable-he had a recent echocardiogram 2021. Patient was maintained on IV antibiotics and was feeling dramatically better by the a.m. of 10/02/2021. He was able to maintain on his home oxygen requirements of 3 L at rest and 4 L with exertion upon evaluation with home O2 eval. Given his improvement in his ability to stay on his home oxygen it was felt that he was stable enough to go home and he really desired discharge. The patient will be discharged on Augmentin to complete a total of 6 more days of antibiotic therapy. I will continue to follow cultures and call the patient with any antibiotic adjustments if needed. Augmentin was sent to his local pharmacy and have recommended he follow-up with his primary care physician within the next 1 to 2 weeks or earlier if if needed. He was discharged home in stable condition on 10/02/2021 and improved much more rapidly than anticipated upon admission. Discharge diagnoses: Acute hypoxia Gram-negative pneumonia Chronic hypoxic respiratory failure-dependent on 3 to 4 L COPD Pulmonary fibrosis Serum creatinine elevation-resolved History of DVT History of bilateral PE DM-2 CAD Hypertension Hyperlipidemia History of tobacco abuse History of non-Hodgkin's lymphoma Chronic anemia Iron deficiency History of RA GERD Recent COVID-19 infection Physical Exam Const alert, oriented x3, no apparent distress, average body habitus, no limitations, healthy appearing and well nourished Constitutional Narrative: Older white male sitting up in bed, family at bedside, patient states he is f eeling much better and appears well, appears comfortable and nontoxic General Appearance: cooperative, comfortable, well kempt and well developed Orientation / Consciousness: awake, oriented to person and oriented to place Exam Limitations: no limitations HEENT normocephalic, head/scalp atraumatic, hearing grossly normal bilaterally and moist oral mucous membranes Resp Resp Narrative: Diffuse scattered crackles worse at the bases bilaterally Auscultation: crackles and rhonchi right lower; Negative for wheezes Cardio regular rate, regular rhythm, S1 normal heart sound, S2 normal heart sound, no murmurs, no rub, no gallops, no clicks and no JVD GI normal to inspection, nondistended, normoactive bowel sounds, soft to palpation, non-tender and non-distended Extremity no clubbing, cyanosis or edema Skin no rashes or lesions noted, no wounds, skin turgor normal and no jaundice Neuro oriented x3, CN's II-XII intact bilaterally, moves all extremities and no focal motor deficits Neuro Narrative: Generalized weakness Sensorium / Orientation: awake, alert, oriented to person, oriented to place and oriented to time Speech: speech normal Psych affect normal Psych Narrative: Very pleasant and appropriately interactive Weight / BMI Weight Weight: 83.8 kg Body Mass Index (BMI) 25.7 ABG / Lab / Microbiology Data Result Diagrams: 10/02/21 06:04 10/02/21 06:04 Laboratory: Laboratory Results - last 24 hr 10/01/21 14:30: WBC 13.9 H, RBC 3.29 L, Hgb 8.7 L, Hct 28.7 L, MCV 87.2, MCH 26.4 L, MCHC 30.3 L, RDW Std Deviation 49.9 H, RDW Coeff of Rafael 15.5 H, Plt Count 441, MPV 11.0, Immature Gran % (Auto) 0.900, Neut % (Auto) 70.1 H, Lymph % (Auto) 12.3 L, [place] % (Auto) 11.6 H, Eos % (Auto) 4.5, Baso % (Auto) 0.6, Absolute Neuts (auto) 9.8 H, Absolute Lymphs (auto) 1.71, Nucleated RBC % 0, Diff Path Review June, Platelet Estimate ADEQUATE, RBC Morphology NORM C+C 10/01/21 14:30: Sodium 141, Potassium 4.1, Chloride 108 H, Carbon Dioxide 27.0, Anion Gap 6, BUN 28 H, Creatinine 1.48 H, Estim Creat Clear Calc 48.05, Est GFR (MDRD) Af Amer 60, Est GFR (MDRD) Non-Af 50 L, BUN/Creatinine Ratio 18.9, Glucose 158 H, Calcium 9.0, Troponin I High Sens 13 10/01/21 14:30: B-Natriuretic Peptide 244.9 H 10/01/21 14:30: Lactic Acid 1.2 10/01/21 17:35: Procalcitonin 0.21 H 10/01/21 18:40: COVID-19 (JUSTIN) Not Detected 10/01/21 22:19: POC Glucose 236 H 10/02/21 06:04: WBC 8.0, RBC 2.90 L, Hgb 8.0 L, Hct 25.9 L, MCV 89.3, MCH 27.6, MCHC 30.9 L, RDW Std Deviation 51.6 H, RDW Coeff of Rafael 15.7 H, Plt Count 278, MPV 10.3, Immature Gran % (Auto) 0.700, Neut % (Auto) 55.3, Lymph % (Auto) 15.7 L, [place] % (Auto) 15.0 H, Eos % (Auto) 12.4 H, Baso % (Auto) 0.9, Absolute Neuts (auto) 4.4, Absolute Lymphs (auto) 1.26, Nucleated RBC % 0 10/02/21 06:04: Sodium 141, Potassium 3.9, Chloride 110 H, Carbon Dioxide 25.0, Anion Gap 6, BUN 26 H, Creatinine 1.17, Estim Creat Clear Calc 60.78, Est GFR (MDRD) Af Amer 79, Est GFR (MDRD) Non-Af 65, BUN/Creatinine Ratio 22.2 H, Glucose 96, Calcium 8.2 L, Total Bilirubin 0.30, AST 10 L, ALT 12 L, Alkaline Phosphatase 71, Total Protein 5.2 L, Albumin 2.2 L, Globulin 3.0, Albumin/Globulin Ratio 0.7 L 10/02/21 06:04: Hemoglobin A1c 6.0 H 10/02/21 06:41: POC Glucose 88 10/02/21 07:30: MRSA (PCR) Negative 10/02/21 11:22: POC Glucose 246 H Microbiology: Microbiology 10/01/21 20:55 Sputum, Expectorated/Coughed Gram Stain - Final 10/01/21 20:55 Sputum, Expectorated/Coughed Respiratory Culture - Preliminar y GNR lactose pediatric dentist 10/01/21 09:09 Urine, Clean Catch Legionella Antigen - Final 10/01/21 09:09 Urine, Clean Catch Streptococcus pneumoniae Antigen (M - Final 10/01/21 20:33 Mucosa - Nasopharyngeal Respiratory Panel (PCR) - Final 10/01/21 14:35 Nasal Secretion SARS-CoV-2 & FLU Antigen (Rapid) - Final Radiography Diagnostic Testing: Radiology Impression Brain CT 10/01/21 14:26 IMPRESSION: Chronic involutional changes of the brain. Partial opacification of the right maxillary sinus with opacification of the right sphenoid sinus. Electronically Signed: Brett Fontanez MD at 15:03 EDT , Chest X-Ray 10/01/21 14:44 IMPRESSION: Emphysema without pneumonia or atelectasis. Electronically Signed: Boston Myers MD at 16:36 EDT , Meaningful Use Info Meaningful Use Diagnoses (Choose all that apply): None applicable Discharge Plan Admission Admit Date/Time: 10/01/21 17:52 Primary Reason for Your Visit: Dyspnea Attending Provider: Nadira Ricks Primary Care Provider: Donna Will Consulting Providers: Janice Mackey Discharge Orders/Prescriptions Prescriptions: New amoxicillin-pot clavulanate 875-125 mg tablet 1 tab PO BID Qty: 12 0RF Continued aspirin [Adult Aspirin Regimen] 81 mg tablet,delayed release (DR/EC) 81 mg PO DAILY cholecalciferol (vitamin D3) 25 mcg (1,000 unit) capsule 25 mcg PO DAILY nitroglycerin [Nitrostat] 0.4 mg tablet, sublingual 0.4 mg SUBLINGUAL Q5M PRN (Reason: chest pain) Qty: 30 0RF Rx Instructions: until response; do not exceed 3 doses per episode metoprolol tartrate 25 mg tablet 12.5 mg PO DAILY ferrous sulfate 325 mg (65 mg iron) tablet 325 mg PO BID potassium chloride 10 mEq tablet,ER particles/crystals 10 meq PO DAILY@0800 atorvastatin 40 mg tablet 60 mg PO QHS ipratropium-albuterol 0.5 mg-3 mg(2.5 mg base)/3 mL solution for nebulization 3 ml inhalation Q4H PRN PRN (Reason: SOB &/OR WHEEZING) Qty: 180 6RF escitalopram oxalate 10 mg tablet 10 mg PO DAILY 30 Days Qty: 90 3RF mirtazapine [Remeron] 15 mg tablet 7.5 mg PO QHS 30 Days Qty: 90 3RF pantoprazole 40 mg tablet,delayed release (DR/EC) 40 mg PO BID 30 Days Qty: 180 3RF Referrals / Follow Up: Anthony Singleton DO [Med Staff - Active Staff] - See Referral Note (as scheduled) Donna Will MD [Primary Care Provider] - Within 1 Week Disposition Disposition (needs filled in before D/C Order can be placed): Home Health Service Charges/Coding Visit Charges Inpatient E&M: 05685 Disch Hosp
[2021-10-02 13:04] LABS: Pathologist Review Reviewed
--- NOTE | 2021-10-02 15:34 | PHA.DC.MR ---
Pharmacy Service has performed discharge medication reconciliation for this patient. The patient's discharge medication list was reviewed for discrepancies and discrepancies were resolved. Medication education papers prepared, patient discharge when counseling was attempted. Home Medications aspirin 81 mg tablet,delayed release (Adult Aspirin Regimen) 81 mg PO DAILY heart health 09/28/19 cholecalciferol (vitamin D3) 25 mcg (1,000 unit) capsule 25 mcg PO DAILY vitamin 07/17/20 nitroglycerin 0.4 mg sublingual tablet (Nitrostat) 0.4 mg sublingual Q5M PRN chest pain #30 tabs 09/25/20 ferrous sulfate 325 mg (65 mg iron) tablet 325 mg PO BID iron supplement 04/26/21 ipratropium 0.5 mg-albuterol 3 mg (2.5 mg base)/3 mL nebulization soln 3 ml inhalation Q4H PRN PRN SOB &/OR WHEEZING #180 mL 06/18/21 escitalopram oxalate 10 mg tablet 10 mg PO DAILY mood 30 days #90 tabs 06/21/21 mirtazapine 15 mg tablet (Remeron) 7.5 mg PO QHS bm 30 days #90 tabs 06/21/21 pantoprazole 40 mg tablet,delayed release 40 mg PO BID acid reflux 30 days #180 tabs 06/21/21 potassium chloride 10 mEq tablet,extended release(part/cryst) 10 meq PO DAILY@0800 vitamin 08/06/21 metoprolol tartrate 25 mg tablet 12.5 mg PO DAILY BP 09/03/21 atorvastatin 40 mg tablet 60 mg PO QHS cholesterol 10/01/21 amoxicillin 875 mg-potassium clavulanate 125 mg tablet 1 tab PO BID #12 tabs 10/02/21
== END 2021-10-02 15:23 | disposition home health service (06) | DRG 178 ==
LOC: ED 17:54 → MS3 18:32
PROVIDERS: Admitting Provider Family Medicine; Emergency Provider Emergency Medicine; Visit Provider Internal Medicine
DX: J15.6 Pneumonia due to other Gram-negative bacteria (principal); J96.11 Chronic respiratory failure with hypoxia; J44.0 Chronic obstructive pulmonary disease with (acute) lower respiratory infection; D63.8 Anemia in other chronic diseases classified elsewhere; E11.9 Type 2 diabetes mellitus without complications; D50.9 Iron deficiency anemia, unspecified; J84.10 Pulmonary fibrosis, unspecified; M06.9 Rheumatoid arthritis, unspecified; E78.5 Hyperlipidemia, unspecified; I25.10 Atherosclerotic heart disease of native coronary artery without angina pectoris; F41.9 Anxiety disorder, unspecified; I10 Essential (primary) hypertension; F32.A Depression, unspecified; Z86.711 Personal history of pulmonary embolism; Z86.718 Personal history of other venous thrombosis and embolism; Z87.19 Personal history of other diseases of the digestive system; Z85.828 Personal history of other malignant neoplasm of skin; Z79.82 Long term (current) use of aspirin; Z79.899 Other long term (current) drug therapy; Z85.72 Personal history of non-Hodgkin lymphomas; Z95.5 Presence of coronary angioplasty implant and graft; Z87.891 Personal history of nicotine dependence; U09.9 Post COVID-19 condition, unspecified; N28.9 Disorder of kidney and ureter, unspecified; Z95.828 Presence of other vascular implants and grafts; Z99.81 Dependence on supplemental oxygen
CPT/HCPCS: 36415; 70450; 71045; 80048; 80053; 82962; 83036; 83605; 83880; 84145; 84484; 85025; 87040; 87070; 87077; 87186; 87205; 87428; 87449; 87633; 87635; 87641; 93005; 94640; 94762; 99251; 99285; 99406; J7030; J7050; A4216; G0463; J1940; U0003; U0005

== ENCOUNTER 2021-10-23 11:16 | Inpatient (IN) | payer MEDICARE, SELFPAY ==
[2021-10-23] VITALS (10 sets, daily range): BP systolic 98–130; BP diastolic 55–71; PULSE 72–92; RESP 16–22; TEMP 36.2–36.8; O2SAT 92–99; BMI 26.9; BMI 25.9
--- NOTE | 2021-10-23 12:35 | EKG12_ITS ---
Test Reason : sob Blood Pressure : / mmHG Vent. Rate : 075 BPM Atrial Rate : 075 BPM P-R Int : 154 ms QRS Dur : 090 ms QT Int : 382 ms P-R-T Axes : 058 029 027 degrees QTc Int : 426 ms Normal sinus rhythm Normal ECG When compared with ECG of 01-OCT-2021 15:18, No significant change was found Confirmed by IAM TEIXEIRA, HAVEN ([id number]), editor magazine AVINASH MARTINEZ ([id number]) on 10/31/2021 11:25:27 AM Referred By: Yasmin Confirmed By:HAVEN VITALE MD
--- NOTE | 2021-10-23 12:35 | RAD_ITS ---
STUDY: X-RAY CHEST REASON FOR EXAM: Male, 71 years old. Dyspnea TECHNIQUE: Single AP portable view of the chest. COMPARISON: Comparison is made with prior study 10/01/2021. FINDINGS: EKG electrodes are seen. The lungs are clear and expanded. There is no demonstrated pleural abnormality. Sternal cerclage wires and vascular clips are present from a prior sternotomy and coronary artery bypass graft procedure (CABG). Normal mediastinum and sho. Normal visualized pulmonary arteries. Normal visualized aortic arch and descending thoracic aorta. There are diffuse degenerative changes of the visualized thoracic spine. Normal visualized ribs, clavicles, and shoulders. There is no demonstrated abnormality of the visualized soft tissue structures of the upper abdomen. RAD/Chest 1 View (Portable) IMPRESSION: No acute abnormality is seen. Electronically Signed: Brett Fontanez MD at 13:20 EDT ,
[2021-10-23 12:48] LABS: Absolute Lymphocyte Count 0.95 X10^3/uL (0.83-4.51); Basophil# 0.06 X10^3/uL; Basophil% 0.6 % (0-1); Eosinophil# 1.67 X10^3/uL; Eosinophils% 17.6 % (0-5); Hematocrit 25.1 % (40-54); Hemoglobin 7.6 g/dL (13.0-16.5); Lymphocyte # 0.95 X10^3/ul (0.83-4.51); Mean Corp Hgb Conc 30.3 g/dL (32-36); Mean Corpuscular Hgb 26.2 pg (27.0-32.0); Mean Corpuscular Volume 86.6 fL (80-94); Mean Platelet Vol. 10.1 fl (6.2-12.0); Monocyte# 0.79 X10^3/uL; Monocyte% 8.3 % (0-10); NRBC Flagged by Analyzer 0 % (0-5); Neutrophil # 5.96 X10^3/uL (2.7-7.7); Neutrophil % 62.8 % (47-70); Platelet Count 350 K/mm3 (150-450); RBC Distribution Width CV 15.9 % (11.6-14.6); RBC Distribution Width SD 50.4 fl (35.1-43.9); White Blood Count 9.5 K/mm3 (4.4-11.0)
[2021-10-23] MEDS: Ipratropium/Albuterol Sulfate 3 ML AMPUL.NEB INHALATION ×2 (12:55→19:13)
[2021-10-23 13:05] LABS: International Normalized Ratio 1.1; Prothrombin Time (Protime)PT. 14.1 SECONDS (11.7-14.9)
[2021-10-23 13:06] LABS: Partial Thromboplast Time 27.7 Seconds (24.1-36.2)
[2021-10-23 13:07] LABS: ALB/GLOB Ratio 0.8 RATIO (0.9-2.4); AST(SGOT) 12 U/L (15-37); Alanine Aminotransfer ALT/SGPT 14 U/L (16-61); Albumin, Serum 2.7 g/dL (3.2-5.0); Alkaline Phosphatase 94 U/L (45-117); Anion Gap 6 (5-15); BUN 22 mg/dL (7-18); BUN/Creat Ratio 17.6 RATIO (10-20); Calcium,Total 8.8 mg/dL (8.5-10.1); Chloride 111 mmol/L (98-107); Creatinine, Serum 1.25 mg/dL (0.70-1.30); EST Glomerular Filtration Rate 60 mL/min (>60); Est Glom Filt Rate - Afr Amer 73 mL/min (>60); Estimated Creatinine Clearance 56.89 ml/min; Globulin 3.4 g/dL (2.2-4.2); Glucose 144 mg/dL (74-106); Potassium 4.3 mmol/L (3.5-5.1); Protein, Total 6.1 g/dL (6.4-8.2); Sodium Level 142 mmol/L (136-145); Troponin-I HS 10 pg/mL (3.0-78.0)
[2021-10-23 13:16] LABS: BNP,B-Type NATRIURETIC PEPTIDE 158.6 pg/mL (0-100)
--- NOTE | 2021-10-23 14:01 | EDS_ITS ---
HPI History of Present Illness Chief Complaint: Shortness of Breath Informant: patient Onset/Context/Timing Onset: Yesterday Context: gradual Timing: Continuous Quality: Positive for Dyspnea on exertion Worsened by: Exertion Relieved by: Rest Associated Symptoms cough, clear sputum and yellow sputum; Negative for rhinorrhea, post nasal drip, fever, sore throat, chills or sweats Chest Pain: Positive for None Narrative Narrative: Patient presents with shortness of breath that has been getting worse since yesterday. Patient was seen by her bass viol repairer today and was referred to the emergency department. While at the bass viol repairer office they noted her pulse oximeter to be 84% on 4 L. Patient was then referred to the emergency department. Patient states that his breathing is worse with any exertion and better with rest. Patient states he has been coughing up some clear and yellow sputum. Patient states he is normally on 3 L of oxygen by nasal cannula at home. Patient denies any chest pain. Patient denies any fevers or chills. PFSH PFSH Medical History Acute respiratory failure with hypoxia Allergic rhinitis Arthritis Asthma Atherosclerosis of coronary artery of [place] heart without angina pectoris Cancer Chronic bronchitis Colon polyp COPD (chronic obstructive pulmonary disease) COVID-19 in immunocompromised patient Diabetes DVT (deep venous thrombosis) (05/01/21) Essential hypertension FTT (failure to thrive) in adult Gastritis GI bleed (04/2021) History of basal cell carcinoma History of pilonidal cyst History of pulmonary embolus (PE) (04/30/21) Hyperglycemia Nicotine dependence, cigarettes, uncomplicated Non-Hodgkin lymphoma Obesity Physical debility Pneumonia Positive colorectal cancer screening using Cologuard test RA (rheumatoid arthritis) Rhinovirus Tobacco abuse Type 2 diabetes mellitus 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 complications Home Medications aspirin 81 mg tablet,delayed release (Adult Aspirin Regimen) 81 mg PO DAILY heart health 09/28/19 [History Last Taken 09/30/21] cholecalciferol (vitamin D3) 25 mcg (1,000 unit) capsule 25 mcg PO DAILY vitamin 07/17/20 [History Last Taken 09/30/21] nitroglycerin 0.4 mg sublingual tablet (Nitrostat) 0.4 mg sublingual Q5M PRN chest pain #30 tabs 08/02/21 [Rx Last Taken Unknown] ferrous sulfate 325 mg (65 mg iron) tablet 325 mg PO BID iron supplement 04/26/21 [History Last Taken 09/30/21] ipratropium 0.5 mg-albuterol 3 mg (2.5 mg base)/3 mL nebulization soln 3 ml inhalation Q4H PRN PRN SOB &/OR WHEEZING #180 mL 06/18/21 [Rx Last Taken 08/06/21] escitalopram oxalate 10 mg tablet 10 mg PO DAILY mood 30 days #90 tabs 06/21/21 [Rx Last Taken 09/30/21] mirtazapine 15 mg tablet (Remeron) 7.5 mg PO QHS bm 30 days #90 tabs 06/21/21 [Rx Last Taken 09/30/21] pantoprazole 40 mg tablet,delayed release 40 mg PO BID acid reflux 30 days #180 tabs 06/21/21 [Rx Last Taken 09/30/21] potassium chloride 10 mEq tablet,extended release(part/cryst) 10 meq PO DAILY@0800 vitamin 08/06/21 [History Last Taken 09/30/21] atorvastatin 40 mg tablet 20 mg PO QHS cholesterol 10/09/21 [History Last Taken Unknown] metoprolol tartrate 25 mg tablet 12.5 mg PO BID BP 10/09/21 [History Last Taken Unknown] Allergy/AdvReac Type Severity Reaction Status Date / Time levofloxacin [From Levaquin] AdvReac Intermediate diarrhea, Verified 10/23/21 11:21 dizziness, GI upset, weakness Family History Father Arthritis Bleeding disorder Hypertension Kidney disease Cancer Skin Anemia blood clots Emphysema lung Mother Colon cancer Cancer Lung Cancer Diabetes Brother Thyroid disorder Surgical History History of coronary artery stent placement (10/22/13) History of excision of pilonidal cyst History of thymectomy Hx of lymph node excision Presence of IVC filter (04/2021) Social History household members: spouse Smoking Status: Former smoker second hand exposure: Yes quit status: considering quitting alcohol intake: current alcohol intake frequency: holidays/special occasions only substance use type: does not use caffeine: Yes Type: coffee Number of servings: 3 what type of physical activity do you participate in: none frequency: does not exercise seatbelt use: always ROS ROS ED Constitutional Constitutional ED: Denies chills or fever(s) Eyes Eyes: Denies blurry vision or change in vision ENT ENT ED: Denies rhinorrhea or sore throat Cardiovascular Cardiovascular: Denies chest pain or palpitations Respiratory/Chest Respiratory/Chest: Reports cough, dyspnea and sputum Gastrointestinal Gastrointestinal: Denies nausea or vomiting Genitourinary Genitourinary ED: Denies dysuria or hematuria Musculoskeletal Musculoskeletal: Denies back pain or neck pain Integumentary Denies abscess or rash Neurologic Neurologic: Denies headache(s) or weakness Allergic/Immunologic Allergic/Immunologic ED: Denies mouth swelling or urticaria EXAM Physical Exam Const Vital Signs: 10/23/21 11:17 10/23/21 11:21 10/23/21 12:35 Temperature 97.4 F L Temperature Source Temporal Pulse Rate 83 Respiratory Rate 18 Respiratory Effort Short of Breath Respiratory Depth Normal Respiratory Pattern Normal Blood Pressure 98/55 L Blood Pressure Mean 69 Pulse Ox 92 Oxygen Delivery Method Nasal Cannula Nasal Cannula Nasal Cannula Oxygen Flow Rate (L/min) 4 4 4 10/23/21 12:55 Temperature Temperature Source Pulse Rate 75 Respiratory Rate 16 Respiratory Effort Respiratory Depth Respiratory Pattern Blood Pressure Blood Pressure Mean Pulse Ox Oxygen Delivery Method Oxygen Flow Rate (L/min) Positive well nourished and well developed General Appearance ED: well developed HEENT Reports moist mucous membranes Neck supple and no JVD Resp normal respiratory effort Auscultation: wheezes expiratory wheezes and throughout Cardio regular rate, regular rhythm and no murmurs GI normal to inspection, nondistended, normoactive bowel sounds and non-tender Palpation: soft Extremity normal to inspection General Extremety ED: Negative for edema or tenderness General Extremity: Negative for edema Neuro oriented x3, CN's II-XII intact bilaterally and no sensory deficits noted Sensorium / Orientation: alert Motor Exam: strength 5/5 throughout Psych mental status grossly normal Skin no rashes or lesions noted MDM MDM MDM Narrative Medical decision making narrative: Patient was given a DuoNeb aerosol here. EKG was obtained. On my interpretation, it showed a normal sinus rhythm with a rate of 75. LA interval, QRS interval, and QTc intervals were all normal. [place] was normal. There are no acute ST or T wave changes. Portable 1 view chest x-ray was obtained. On my interpretation, lung luu are clear. There is normal cardiac silhouette. Bony thorax is normal. There is no acute process noted. Radiologist also interpreted the x-ray and agrees. CBC showed anemia with a hemoglobin of 7.6 he matocrit 25.1. This is consistent with prior results but is starting to trend downwards. Patient states he is scheduled for an iron infusion tomorrow. PT with INR and PTT were within normal limits. Comprehensive metabolic profile was essentially within normal limits. Lactate was normal. BNP was only slightly elevated at 158.6. Patient is feeling somewhat better on reevaluation. Case was discussed with the hospitalist. He will admit the patient to his service. Patient and family understood and were agreeable with the plan. All questions were answered. Lab Data Attestation: I reviewed the patient's lab results. Labs: Laboratory Results - last 24 hr 10/23/21 10/23/21 10/23/21 12:30 12:30 12:30 WBC 9.5 RBC 2.90 L Hgb 7.6 L Hct 25.1 L MCV 86.6 MCH 26.2 L MCHC 30.3 L RDW Std Deviation 50.4 H RDW Coeff of Raafel 15.9 H Plt Count 350 MPV 10.1 Immature Gran % (Auto) 0.700 Neut % (Auto) 62.8 Lymph % (Auto) 10.0 L [place] % (Auto) 8.3 Eos % (Auto) 17.6 H Baso % (Auto) 0.6 Absolute Neuts (auto) 6.0 Absolute Lymphs (auto) 0.95 Nucleated RBC % 0 PT 14.1 INR 1.1 APTT 27.7 Sodium 142 Potassium 4.3 Chloride 111 H Carbon Dioxide 25.0 Anion Gap 6 BUN 22 H Creatinine 1.25 Estim Creat Clear Calc 56.89 Est GFR (MDRD) Af Amer 73 Est GFR (MDRD) Non-Af 60 BUN/Creatinine Ratio 17.6 Glucose 144 H Lactic Acid Calcium 8.8 Total Bilirubin 0.30 AST 12 L ALT 14 L Alkaline Phosphatase 94 Troponin I High Sens 10 B-Natriuretic Peptide Total Protein 6.1 L Albumin 2.7 L Globulin 3.4 Albumin/Globulin Ratio 0.8 L 10/23/21 10/23/21 12:30 12:56 WBC RBC Hgb Hct MCV MCH MCHC RDW Std Deviation RDW Coeff of Rafael Plt Count MPV Immature Gran % (Auto) Neut % (Auto) Lymph % (Auto) [place] % (Auto) Eos % (Auto) Baso % (Auto) Absolute Neuts (auto) Absolute Lymphs (auto) Nucleated RBC % PT INR APTT Sodium Potassium Chloride Carbon Dioxide Anion Gap BUN Creatinine Estim Creat Clear Calc Est GFR (MDRD) Af Amer Est GFR (MDRD) Non-Af BUN/Creatinine Ratio Glucose Lactic Acid 1.0 Calcium Total Bilirubin AST ALT Alkaline Phosphatase Troponin I High Sens B-Natriuretic Peptide 158.6 H Total Protein Albumin Globulin Albumin/Globulin Ratio Radiography Chest X-Ray - ED: 1 View, Read by ED Physician, Read by Radiologist and No Acute Disease Diagnostic Testing: Clinical Impression(s) from Imaging Studies Chest X-Ray 10/23/21 12:35 IMPRESSION: No acute abnormality is seen. Electronically Signed: Brett Fontanez MD at 13:20 EDT , EKG Initial EKG: Attestation: I personally reviewed and interpreted this EKG as follows: Interpretation: Sinus Rhythm (75) and No Acute Injury Pattern Prior EKG tracings: available for review Prior: Unchanged (10/01/2021) Discharge Plan Triage Chief Complaint: Shortness of Breath ED Provider: Marco Hoffman Dx/Rx/DC Orders Clinical Impression: COPD exacerbation, Type 2 diabetes mellitus, Essential hypertension Prescriptions: No Action aspirin [Adult Aspirin Regimen] 81 mg tablet,delayed release (DR/EC) 81 mg PO DAILY cholecalciferol (vitamin D3) 25 mcg (1,000 unit) capsule 25 mcg PO DAILY nitroglycerin [Nitrostat] 0.4 mg tablet, sublingual 0.4 mg SUBLINGUAL Q5M PRN (Reason: chest pain) Qty: 30 0RF Rx Instructions: until response; do not exceed 3 doses per episode metoprolol tartrate 25 mg tablet 12.5 mg PO BID ferrous sulfate 325 mg (65 mg iron) tablet 325 mg PO BID potassium chloride 10 mEq tablet,ER particles/crystals 10 meq PO DAILY@0800 atorvastatin 40 mg tablet 20 mg PO QHS ipratropium-albuterol 0.5 mg-3 mg(2.5 mg base)/3 mL solution for nebulization 3 ml inhalation Q4H PRN PRN (Reason: SOB &/OR WHEEZING) Qty: 180 6RF escitalopram oxalate 10 mg tablet 10 mg PO DAILY 30 Days Qty: 90 3RF mirtazapine [Remeron] 15 mg tablet 7.5 mg PO QHS 30 Days Qty: 90 3RF pantoprazole 40 mg tablet,delayed release (DR/EC) 40 mg PO BID 30 Days Qty: 180 3RF Primary Care Provider: OLEG ELIZONDO Referrals: OLEG ELIZONDO, PATENT CHEMIST-C [Primary Care Provider] - Disposition Disposition: Acute Care Hospital [facility]
--- NOTE | 2021-10-23 14:52 | HP.PCM.HOS_ITS ---
HPI - General General Date of Admission: 10/23/21 Date of Service: 10/23/21 Chief Complaint: Shortness of breath HPI Narrative SAL ALONZO, is a 71 M who presents to the emergency room at [facility] after being sent in by his court administrator due to complaints of cough with yellow sputum production and increased shortness of breath over the last 48 hours. Patient does have a history of COPD and is on 3 to 4 L via nasal cannula oxygen chronically. Patient denies any fevers or chills at home. Work-up in the emergency room included a chest x-ray which showed no evidence of acute disease, CBC was abnormal for hemoglobin of 7.6, chemistry profile was remarkable for a glucose of 144 and a BUN of 22. Patient's rapid COVID test was negative, patient's influenza test was negative. Patient will be admitted to [place] [id number], [address] him on IV Solu-Medrol, programmed aerosol treatments, IV Zithromax, and order IV Venofer (patient was supposed to get this given as an outpatient due to chronic anemia). Patient is being seen by Dr. Zapata as an outpatient. I will obtain a noncontrasted chest CT due to the patient's inspiratory rales at his bases. I suspect he may have a component of pulmonary scarring. [facility] Medical History Acute respiratory failure with hypoxia Allergic rhinitis Arthritis Asthma Atherosclerosis of coronary artery of [place] heart without angina pectoris Cancer Chronic bronchitis Colon polyp COPD (chronic obstructive pulmonary disease) COVID-19 in immunocompromised patient Diabetes DVT (deep venous thrombosis) (05/01/21) Essential hypertension FTT (failure to thrive) in adult Gastritis GI bleed (04/2021) History of basal cell carcinoma History of pilonidal cyst History of pulmonary embolus (PE) (04/30/21) Hyperglycemia Nicotine dependence, cigarettes, uncomplicated Non-Hodgkin lymphoma Obesity Physical debility Pneumonia Positive colorectal cancer screening using Cologuard test RA (rheumatoid arthritis) Rhinovirus Tobacco abuse Type 2 diabetes mellitus 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 complications Home Medications aspirin 81 mg tablet,delayed release (Adult Aspirin Regimen) 81 mg PO DAILY heart health 09/28/19 [History Last Taken 10/23/21] cholecalciferol (vitamin D3) 25 mcg (1,000 unit) capsule 25 mcg PO DAILY vitamin 07/17/20 [History Last Taken 10/23/21] nitroglycerin 0.4 mg sublingual tablet (Nitrostat) 0.4 mg sublingual Q5M PRN chest pain #30 tabs 09/25/20 [Rx Last Taken Unknown] ferrous sulfate 325 mg (65 mg iron) tablet 325 mg PO BID iron supplement 04/26/21 [History Last Taken 10/23/21] ipratropium 0.5 mg-albuterol 3 mg (2.5 mg base)/3 mL nebulization soln 3 ml inhalation Q4H PRN PRN SOB &/OR WHEEZING #180 mL 06/18/21 [Rx Last Taken 10/23/21] escitalopram oxalate 10 mg tablet 10 mg PO DAILY mood 30 days #90 tabs 06/21/21 [Rx Last Taken 10/23/21] mirtazapine 15 mg tablet (Remeron) 7.5 mg PO QHS bm 30 days #90 tabs 06/21/21 [Rx Last Taken 10/22/21] pantoprazole 40 mg tablet,delayed release 40 mg PO BID acid reflux 30 days #180 tabs 06/21/21 [Rx Last Taken 10/23/21] potassium chloride 10 mEq tablet,extended release(part/cryst) 10 meq PO DAILY@0800 vitamin 08/06/21 [History Last Taken 10/23/21] atorvastatin 40 mg tablet 20 mg PO QHS cholesterol 10/09/21 [History Last Taken 10/22/21] metoprolol tartrate 25 mg tablet 12.5 mg PO BID BP 10/09/21 [History Last Taken 10/23/21] Allergy/AdvReac Type Severity Reaction Status Date / Time levofloxacin [From Levaquin] AdvReac Intermediate diarrhea, Verified 10/23/21 11:21 dizziness, GI upset, weakness Family History Father Arthritis Bleeding disorder Hypertension Kidney disease Cancer Skin Anemia blood clots Emphysema lung Mother Colon cancer Cancer Lung Cancer Diabetes Brother Thyroid disorder Surgical History History of coronary artery stent placement (10/22/13) History of excision of pilonidal cyst History of thymectomy Hx of lymph node excision Presence of IVC filter (04/2021) Social History household members: spouse Smoking Status: Former smoker second hand exposure: Yes quit status: considering quitting alcohol intake: current alcohol intake frequency: holidays/special occasions only substance use type: does not use caffeine: Yes Type: coffee Number of servings: 3 what type of physical activity do you participate in: none frequency: does not exercise seatbelt use: always ROS Constitutional Constitutional: Denies anorexia, change in weight, chills, fatigue, fever(s) or malaise Eyes Eyes: Denies blurry vision, change in eye color, change in vision, discharge from eye(s) or double vision ENT HEENT: Denies abnormal hearing, dysphagia, epistaxis, headache(s), hearing loss or nasal congestion Cardiovascular Cardiovascular: Reports dyspnea on exertion; Denies chest pain, claudication, edema, lightheadedness, orthopnea or palpitations Respiratory/Chest Respiratory/Chest: Reports cough, dyspnea, productive cough, shortness of breath at rest, shortness of breath with exertion and wheezing; Denies excessive phlegm production or hemoptysis Gastrointestinal Gastrointestinal: Denies abdominal pain, coffee ground emesis, constipation, diarrhea, dyspepsia, hematemesis, hematochezia or loose stools Genitourinary Genitourinary: Denies burning urination, difficulty urinating, dysuria, hematuria, nocturia, urinary frequency, urinary hesitancy or urinary incontinenc e Musculoskeletal Musculoskeletal: Denies arthralgias, back pain, joint pain, joint stiffness or joint swelling Neurologic Neurologic: Denies abnormal gait, abnormal speech, confusion, disequilibrium, d izziness, focal weakness or headache(s) Psychiatric Psychiatric: Denies anxiety, depression or homicidal ideation Endocrine Endocrinology: Denies change in body appearance, cold intolerance or excessive sweating Hematologic/Lymphatic Hematologic/Lymphatic: Denies anemia, easy bleeding or easy bruising Allergic/Immunologic Allergic/Immunologic: Denies rhinitis, hives, eczemia or asthma Vital Signs Vital Signs Vital Signs: 10/23/21 11:17 10/23/21 11:21 10/23/21 12:35 Temperature 97.4 F L Temperature Source Temporal Pulse Rate 83 Respiratory Rate 18 Respiratory Effort Short of Breath Respiratory Depth Normal Respiratory Pattern Normal Blood Pressure 98/55 L Blood Pressure Mean 69 Pulse Ox 92 Oxygen Delivery Method Nasal Cannula Nasal Cannula Nasal Cannula Oxygen Flow Rate (L/min) 4 4 4 10/23/21 12:55 10/23/21 13:16 10/23/21 14:12 Temperature 97.6 F L Temperature Source Temporal Pulse Rate 75 77 72 Respiratory Rate 16 18 22 H Respiratory Effort Respiratory Depth Respiratory Pattern Blood Pressure 130/71 H 130/71 H Blood Pressure Mean 90 90 Pulse Ox 94 95 Oxygen Delivery Method Nasal Cannula Nasal Cannula Oxygen Flow Rate (L/min) 4 4 Weight Weight: 87.543 kg Body Mass Index (BMI) 26.9 Physical Exam Const alert, oriented x3, no apparent distress and healthy appearing General Appearance: cooperative, well kempt and well developed Orientation / Consciousness: awake, oriented to person, oriented to place and oriented to time HEENT normocephalic, head/scalp atraumatic, hearing grossly normal bilaterally and moist oral mucous membranes Eyes PERRL, EOMs intact bilaterally and conjunctivae normal Neck supple, no JVD, thyroid normal and no carotid bruits General: trachea midline Resp normal respiratory effort, no retractions and no use of accessory muscles Auscultation: crackles bilateral (At the lung bases) and wheezes left lower; Negative for rales or rhonchi Cardio regular rate, regular rhythm, S1 normal heart sound, S2 normal heart sound, no murmurs, no rub, no gallops and no clicks GI normal to inspection, nondistended, normoactive bowel sounds, soft to palpation, non-tender and non-distended Extremity normal to inspection and no clubbing, cyanosis or edema Skin no rashes or lesions noted General Skin Exam: no breakdown Neuro oriented x3, CN's II-XII intact bilaterally, moves all extremities, no focal motor deficits and no sensory deficits noted Sensorium / Orientation: awake, alert, oriented to person and oriented to place Speech: speech normal Psych affect normal Results Lab / Micro Data Result Diagrams: 10/23/21 12:30 10/23/21 12:30 Labs: Laboratory Results - last 24 hr 10/23/21 12:30: WBC 9.5, RBC 2.90 L, Hgb 7.6 L, Hct 25.1 L, MCV 86.6, MCH 26.2 L , MCHC 30.3 L, RDW Std Deviation 50.4 H, RDW Coeff of Rafael 15.9 H, Plt Count 350, MPV 10.1, Immature Gran % (Auto) 0.700, Neut % (Auto) 62.8, Lymph % (Auto) 10.0 L, [place] % (Auto) 8.3, Eos % (Auto) 17.6 H, Baso % (Auto) 0.6, Absolute Neuts (auto) 6.0, Absolute Lymphs (auto) 0.95, Nucleated RBC % 0 10/23/21 12:30: PT 14.1, INR 1.1, APTT 27.7 10/23/21 12:30: Sodium 142, Potassium 4.3, Chloride 111 H, Carbon Dioxide 25.0, Anion Gap 6, BUN 22 H, Creatinine 1.25, Estim Creat Clear Calc 56.89, Est GFR (MDRD) Af Amer 73, Est GFR (MDRD) Non-Af 60, BUN/Creatinine Ratio 17.6, Glucose 144 H, Calcium 8.8, Total Bilirubin 0.30, AST 12 L, ALT 14 L, Alkaline Phosphatase 94, Troponin I High Sens 10, Total Protein 6.1 L, Albumin 2.7 L, Globulin 3.4, Albumin/Globulin Ratio 0.8 L 10/23/21 12:30: B-Natriuretic Peptide 158.6 H 10/23/21 12:56: Lactic Acid 1.0 Micro: Microbiology 10/23/21 13:23 Nasal Secretion SARS-CoV-2 & FLU Antigen (Rapid) - Final Radiology Impression Chest X-Ray 10/23/21 12:35 IMPRESSION: No acute abnormality is seen. Electronically Signed: Brett Fontanez MD at 13:20 EDT , Assessment & Plan Assessment/Plan (1) COPD exacerbation: PLAN: Plan 1. Exacerbation of COPD-patient will be admitted to [facility], he will be placed on programmed aerosol treatments, IV corticosteroids, IV Zithromax, I will order a CT of the chest without contrast to better visualize the lungs. #2 iron deficiency anemia-patient will be given IV iron infusion on a daily basis, according to the patient has had endoscopy this year which showed AVMs. #3 essential hypertension-patient will remain on his current medications #4 atherosclerotic heart disease-patient will remain on his current medications #5 hyperlipidemia-patient will remain on atorvastatin #6 history of type 2 diabetes according to medical record-patient is on no medication for diabetes at this time, patient will be placed on fingerstick blood sugars with sliding scale insulin per protocol. Charges/Coding Visit Charges Inpatient E&M: 77573 Init Hosp L3
--- NOTE | 2021-10-23 15:24 | CT_ITS ---
INDICATION: dyspnea EXAMINATION: CT CHEST WITHOUT CONTRAST - CT Chest W/O Contrast Injection TECHNIQUE: Helically acquired images were obtained of the chest. A radiation dose optimization technique was used for this scan. IV Contrast dosage and agent: None. COMPARISON: None. FINDINGS: Study limited due to lack of intravenous contrast. Atherosclerosis of the thoracic aorta and coronary arteries noted. [place] subcentimeter mediastinal lymph nodes, nonspecific and likely reactive. Trace layering pleural effusions bilaterally. No pericardial effusion. No pneumothorax. Innumerable ill-defined groundglass nodular densities throughout the bilateral lungs, likely of infectious etiology. Small subsegmental densities in the bilateral lower lobes, suggestive of compressive atelectasis. Aspiration or pneumonia not excluded. No pneumothorax. Sections through the upper abdomen demonstrate a 0.4 cm layering stones in the gallbladder. There is a 3.4 cm right renal cyst. Multilevel thoracic spondylosis. Diffuse osteopenia. Status post median sternotomy. CT/Chest without Contrast IMPRESSION: Innumerable ill-defined groundglass nodular densities in the bilateral lungs, suggestive of infectious processes. Trace layering pleural effusions bilaterally. Cholelithiasis. Electronically Signed: Shmuel Amaro MD at 17:06 EDT ,
[2021-10-23] MEDS: 0.9% Saline Lock 10 ML Syringe IV ×4 (16:19→21:50)
[2021-10-23 16:50] LABS: Bedside Glucose 143 mg/dL (74-106)
[2021-10-23] MEDS: Mirtazapine 15 MG Tablet 7.5 MG PO (21:50)
[2021-10-23] MEDS: Pantoprazole Sodium 40 MG Tablet PO (21:50)
[2021-10-23] MEDS: Metoprolol Tartrate 25 MG Tablet 12.5 MG PO (21:51)
[2021-10-23] MEDS: Ferrous Sulfate 325 MG Tablet PO (21:51)
[2021-10-23] MEDS: Atorvastatin Calcium 20 MG Tablet PO (21:57)
[2021-10-23 22:20] LABS: Bedside Glucose 117 mg/dL (74-106)
[2021-10-24] VITALS (17 sets, daily range): BP systolic 127–144; BP diastolic 60–85; PULSE 63–89; RESP 18–20; TEMP 36.4–36.6; O2SAT 93–98
[2021-10-24 06:10] LABS: Absolute Lymphocyte Count 0.83 X10^3/uL (0.83-4.51); Absolute Neutrophil Count 4.6 X10^3/uL (2.0-7.7); Basophil# 0.03 X10^3/uL; Basophil% 0.5 % (0-1); Eosinophil# 0.04 X10^3/uL; Eosinophils% 0.7 % (0-5); Hematocrit 21.8 % (40-54); Hemoglobin 6.6 g/dL (13.0-16.5); Lymphocyte # 0.83 X10^3/ul (0.83-4.51); Lymphocyte % 14.8 % (19-41); Mean Corp Hgb Conc 30.3 g/dL (32-36); Mean Corpuscular Hgb 25.5 pg (27.0-32.0); Mean Corpuscular Volume 84.2 fL (80-94); Monocyte# 0.09 X10^3/uL; Monocyte% 1.6 % (0-10); NRBC Flagged by Analyzer 0 % (0-5); Neutrophil # 4.58 X10^3/uL (2.7-7.7); Neutrophil % 81.5 % (47-70); Platelet Count 265 K/mm3 (150-450); RBC Distribution Width CV 15.5 % (11.6-14.6); RBC Distribution Width SD 46.9 fl (35.1-43.9); Red Blood Count 2.59 M/mm3 (4.6-6.2); White Blood Count 5.6 K/mm3 (4.4-11.0)
[2021-10-24] MEDS: 0.9% Saline Lock 10 ML Syringe IV ×2 (06:10→21:07)
[2021-10-24 06:31] LABS: Bedside Glucose 216 mg/dL (74-106)
--- NOTE | 2021-10-24 06:36 | PCM.PN.BLA ---
Progress Note Anemia; history of AVM; Transfuse PRBC; notify GI; Keep npo; change Protonix from po to IV
[2021-10-24] MEDS: Ipratropium/Albuterol Sulfate 3 ML AMPUL.NEB INHALATION ×2 (06:39→18:51)
[2021-10-24] MEDS: Insulin Lispro 100 UNIT/ML INSULN.PEN SC ×4 (06:44→21:14)
[2021-10-24] MEDS: Metoprolol Tartrate 25 MG Tablet 12.5 MG PO ×2 (08:20→21:20)
[2021-10-24] MEDS: Ferrous Sulfate 325 MG Tablet PO ×2 (08:20→21:05)
[2021-10-24] MEDS: Escitalopram Oxalate 10 MG Tablet PO (08:20)
[2021-10-24 08:28] LABS: BNP,B-Type NATRIURETIC PEPTIDE 249.7 pg/mL (0-100)
--- NOTE | 2021-10-24 09:56 | PCM.PN.HOSP ---
Subjective Subjective Follow-up on acute CHF exacerbation/severe anemia: Objective Data Objective Data Vital Signs: Vital Signs Temp Pulse Resp BP Pulse Ox O2 Del Method O2 Flow Rate 97.7 F L 75 20 H 133/66 H 93 Nasal Cannula 4 10/24/21 09:51 10/24/21 09:51 10/24/21 09:51 10/24/21 09:51 10/24/21 09:51 10/24/21 09:51 10/24/21 09:51 Oxygen Flow Rate (L/min) 4 Oxygen Delivery Method Nasal Cannula Weight: 84.5 kg Body Mass Index (BMI) 25.9 Intake & Output: Intake and Output for Last 24 Hours 10/22/21 10/23/21 10/24/21 23:59 23:59 23:59 Intake Total 825 / 825 Output Total 600 / 600 Balance 825 / 825 -600 / -600 Lab / Micro Data Result Diagrams: 10/24/21 06:03 10/23/21 12:30 Labs: Laboratory Results - last 24 hr 10/23/21 12:30: WBC 9.5, RBC 2.90 L, Hgb 7.6 L, Hct 25.1 L, MCV 86.6, MCH 26.2 L, MCHC 30.3 L, RDW Std Deviation 50.4 H, RDW Coeff of Rafael 15.9 H, Plt Count 350, MPV 10.1, Immature Gran % (Auto) 0.700, Neut % (Auto) 62.8, Lymph % (Auto) 10.0 L, [place] % (Auto) 8.3, Eos % (Auto) 17.6 H, Baso % (Auto) 0.6, Absolute Neuts (auto) 6.0, Absolute Lymphs (auto) 0.95, Nucleated RBC % 0 10/23/21 12:30: PT 14.1, INR 1.1, APTT 27.7 10/23/21 12:30: Sodium 142, Potassium 4.3, Chloride 111 H, Carbon Dioxide 25.0, Anion Gap 6, BUN 22 H, Creatinine 1.25, Estim Creat Clear Calc 56.89, Est GFR (MDRD) Af Amer 73, Est GFR (MDRD) Non-Af 60, BUN/Creatinine Ratio 17.6, Glucose 144 H, Calcium 8.8, Total Bilirubin 0.30, AST 12 L, ALT 14 L, Alkaline Phosphatase 94, Troponin I High Sens 10, Total Protein 6.1 L, Albumin 2.7 L, Globulin 3.4, Albumin/Globulin Ratio 0.8 L 10/23/21 12:30: B-Natriuretic Peptide 158.6 H 10/23/21 12:56: Lactic Acid 1.0 10/23/21 16:28: POC Glucose 143 H 10/23/21 21:48: POC Glucose 117 H 10/24/21 06:03: WBC 5.6, RBC 2.59 L, Hgb 6.6 L, Hct 21.8 L, MCV 84.2, MCH 25.5 L, MCHC 30.3 L, RDW Std Deviation 46.9 H, RDW Coeff of Rafael 15.5 H, Plt Count 265, MPV 10.0, Immature Gran % (Auto) 0.900, Neut % (Auto) 81.5 H, Lymph % (Auto) 14.8 L, [place] % (Auto) 1.6, Eos % (Auto) 0.7, Baso % (Auto) 0.5, Absolute Neuts (auto) 4.6, Absolute Lymphs (auto) 0.83, Nucleated RBC % 0 10/24/21 06:03: B-Natriuretic Peptide 249.7 H 10/24/21 06:09: POC Glucose 216 H 10/24/21 06:47: Blood Type AB POSITIVE, Antibody Screen NEGATIVE, Crossmatch See Detail 10/24/21 06:47: Crossmatch See Detail Micro: Microbiology 10/23/21 14:25 Mucosa - Nasopharyngeal Respiratory Panel (PCR) - Final Rhinovirus 10/23/21 13:23 Nasal Secretion SARS-CoV-2 & FLU Antigen (Rapid) - Final Radiography Diagnostic Testing: Radiology Impression Chest X-Ray 10/23/21 12:35 IMPRESSION: No acute abnormality is seen. Electronically Signed: Brett Fontanez MD at 13:20 EDT , Chest CT 10/23/21 15:24 IMPRESSION: Innumerable ill-defined groundglass nodular densities in the bilateral lungs, suggestive of infectious processes. Trace layering pleural effusions bilaterally. Cholelithiasis. Electronically Signed: Shmuel Amaro MD at 17:06 EDT , Physical Exam Narrative Physical exam: General: Alert, Oriented x3, Cooperative, on 4 L of oxygen HEENT: Atraumatic Oral: Moist Mucosa Neck: Supple Lungs: Diminished to auscultation Cardiovascular: HS I+II, regular, no murmurs Abdomen: Bowel Sounds Present, Soft, Non Tender Extremities:Bilateral leg edema +1 Skin: No rashes, No breakdown Neurological: Grossly intact Psych/Mental Status: Appropriate Assessment & Plan Assessment/Plan (1) COPD exacerbation: (2) 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: PLAN: Plan 1. Acute on chronic anemia, iron deficiency, likely secondary to GI bleed H/o GI bleed, refractory to oral iron Hb is 6.6, transfusing 2 units of PRBC, lasix 40mg IV x1 GI consulted, stool for occult blood pending Continue on PPI IV BID 2. Acute Rhinovirus COPD exacerbation, improving, currently on 4L oxygen Patient with history of COPD and chronic hypoxic respiratory failure, on 2 L of oxygen at home Continue on IV solumedrol, IV azithromycin, breathing treatment prn 3. Type II DM, HbA1c 6.0, BS is uncontrolled, continue on ISS with blood glucose checks 4. Hypertension, controlled, continue on metoprolol 5. CAD s/p stents in LAD, RCA(2001), left circumflex(2013)/hyperlipidemia, stable Aspirin and Plavix held Continue on statin 6. 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/p IVC filter 7. DVT PPx-SCDs Charges/Coding Visit Charges Inpatient E&M: 45749 Subs Hosp L3
[2021-10-24] MEDS: Magnesium Hydroxide 30 ML UDC PO (10:16)
--- NOTE | 2021-10-24 11:47 | CASEMGMT ---
Addendum entered by Ros Camarillo 10/24/21 12:14: Received confirmation from [facility] that they are active with patient for SN services and will resume care upon dc via careport. Addendum entered by Ros Camarillo 10/24/21 11:59: Pt declined needing a list of HHC providers including quality and resource use data and consistent with the patient?s preferred geographic region, medical needs, and insurance network. Pt pleased with current agency. Original Note: TARAH DEL RIO Readmission Note Previous Admission:? 10/01/21-10/02/21 Diagnosis:?hypoxia, pna DC Disposition: Home with [facility] and resuming palliative care. Current Admission? Current diagnosis: COPD exac Pt presented to ER after appt with quality assurance tester who referred him. Pt having sob and pox of 84% on 4L at office. TARAH DEL RIO in to pt room, pt present, pt receiving transfusion. Pt states HHC through [facility] has been coming for SN, PT and PEDIATRIC OCCUPATIONAL THERAPIST and he would like this to resume. He also has [facility] and would like to continue. Pt has oxygen through [employer]. Verifying script currently with liaison. Pt has portable tank present in hospital. Pt has been seen by his visiting physician since being hospitalized last time. Pt reports taking medications as ordered. Pt has [facility] with sufficient supplies as well. Pt and decline further needs. Referral to [facility] sent via [facility] for DUSTIN. TC to [facility] to make aware pt is hospitalized, left message. DC PLAN:Home with [facility] resuming and palliative care.
[2021-10-24 12:15] LABS: Bedside Glucose 238 mg/dL (74-106)
--- NOTE | 2021-10-24 12:38 | NURSING ---
Normal saline flushing blood tubing
[2021-10-24] MEDS: Furosemide 40 MG/4 ML Vial IV (13:27)
[2021-10-24 16:50] LABS: Bedside Glucose 276 mg/dL (74-106)
--- NOTE | 2021-10-24 17:09 | CON.PCM_ITS ---
Assessment & Plan Assessment/Plan (1) Iron deficiency anemia: QUALIFIERS: Iron deficiency anemia type: unspecified iron deficiency Qualified Code(s): D50.9 - Iron deficiency anemia, unspecified PLAN: Top of the differential diagnosis would be recurrent GI bleeding secondary to angiodysplastic lesions likely secondary to COPD. COPD is a very high risk factor for development of telangiectasias, hemangiomas and angiodysplastic lesions. At this time patient is still very short of breath. He may benefit from repeat upper endoscopy to see if he developed any new lesions and to see if we can get further down into the small bowel. He would de finitely benefit from a capsule endoscopy. He may be candidate for monthly octreotide therapy to stop the development of angiodysplastic lesions. I have not had much success with estrogen therapy and the side effect profile of hypercoagulability typically stops administration of the medicine a long-term basis. HPI Consult Data Date of Consult: 10/24/21 HPI Narrative Reason for Consultation: Anemia HPI Narrative: SAL ALONZO, is a 71 M who presents from his office with worsening shortness of breath.? Patient does have a history of COPD and is on 3 to 4 L via nasal cannula oxygen chronically.? Patient denies any fevers or chills at home. Work-up in the emergency room included a chest x-ray which showed no evidence of acute disease, CBC was abnormal for hemoglobin of 7.6, chemistry profile was remarkable for a glucose of 144 and a BUN of 22.? Patient's rapid COVID test was negative, patient's influenza test was negative. Patient will be admitted to [facility], I will place him on IV Solu-Medrol, programmed aerosol treatments, IV Zithromax, and order IV Venofer (patient was supposed to get this given as an outpatient due to chronic anemia).? Patient is being seen by Dr. Zapata as an outpatient. I saw the patient several months ago for iron deficiency anemia. 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 At that time his ferritin level is very low at 17 and his hemoglobin was 6.4. His hemoglobin had gone all way up to 9.4 but over the last 6 weeks has been trending back down. I was consulted for management of his anemia. [facility] Medical History Acute respiratory failure with hypoxia Allergic rhinitis Arthritis Asthma Atherosclerosis of coronary artery of [place] heart without angina pectoris Cancer Chronic bronchitis Colon polyp COPD (chronic obstructive pulmonary disease) COVID-19 in immunocompromised patient Diabetes DVT (deep venous thrombosis) (05/01/21) Essential hypertension FTT (failure to thrive) in adult Gastritis GI bleed (04/2021) History of basal cell carcinoma History of pilonidal cyst History of pulmonary embolus (PE) (04/30/21) Hyperglycemia Nicotine dependence, cigarettes, uncomplicated Non-Hodgkin lymphoma Obesity Physical debility Pneumonia Positive colorectal cancer screening using Cologuard test RA (rheumatoid arthritis) Rhinovirus Tobacco abuse Type 2 diabetes mellitus 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 complications Home Medications aspirin 81 mg tablet,delayed release (Adult Aspirin Regimen) 81 mg PO DAILY [facility] 09/28/19 [History Last Taken 10/23/21] cholecalciferol (vitamin D3) 25 mcg (1,000 unit) capsule 25 mcg PO DAILY vitamin 07/17/20 [History Last Taken 10/23/21] nitroglycerin 0.4 mg sublingual tablet (Nitrostat) 0.4 mg sublingual Q5M PRN chest pain #30 tabs 09/25/20 [Rx Last Taken Unknown] ferrous sulfate 325 mg (65 mg iron) tablet 325 mg PO BID iron supplement 04/26/21 [History Last Taken 10/23/21] ipratropium 0.5 mg-albuterol 3 mg (2.5 mg base)/3 mL nebulization soln 3 ml inhalation Q4H PRN PRN SOB &/OR WHEEZING #180 mL 06/18/21 [Rx Last Taken 10/23/21] escitalopram oxalate 10 mg tablet 10 mg PO DAILY mood 30 days #90 tabs 06/21/21 [Rx Last Taken 10/23/21] mirtazapine 15 mg tablet (Remeron) 7.5 mg PO QHS bm 30 days #90 tabs 06/21/21 [Rx Last Taken 10/22/21] pantoprazole 40 mg tablet,delayed release 40 mg PO BID acid reflux 30 days #180 tabs 06/21/21 [Rx Last Taken 10/23/21] potassium chloride 10 mEq tablet,extended release(part/cryst) 10 meq PO DAILY@0800 vitamin 08/06/21 [History Last Taken 10/23/21] atorvastatin 40 mg tablet 20 mg PO QHS cholesterol 10/09/21 [History Last Taken 10/22/21] metoprolol tartrate 25 mg tablet 12.5 mg PO BID BP 10/09/21 [History Last Taken 10/23/21] Allergy/AdvReac Type Severity Reaction Status Date / Time levofloxacin [From Levaquin] AdvReac Intermediate diarrhea, Verified 10/23/21 11:21 dizziness, GI upset, weakness Family History Father Arthritis Bleeding disorder Hypertension Kidney disease Cancer Skin Anemia blood clots Emphysema lung Mother Colon cancer Cancer Lung Cancer Diabetes Brother Thyroid disorder Surgical History History of coronary artery stent placement (10/22/13) History of excision of pilonidal cyst History of thymectomy Hx of lymph node excision Presence of IVC filter (04/2021) Social History household members: spouse Smoking Status: Former smoker second hand exposure: Yes quit status: considering quitting alcohol intake: current alcohol intake frequency: holidays/special occasions only substance use type: does not use caffeine: Yes Type: coffee Number of servings: 3 what type of physical activity do you participate in: none frequency: does not exercise seatbelt use: always ROS Constitutional Constitutional: Denies anorexia, change in weight, chills, fatigue, fever(s) or malaise Eyes Eyes: Denies blurry vision, change in eye color, change in vision, discharge from eye(s) or double vision ENT HEENT: Denies abnormal hearing, dysphagia, epistaxis, headache(s), hearing loss or nasal congestion Cardiovascular Cardiovascular: Reports dyspnea on exertion; Denies chest pain, claudication, edema, lightheadedness, orthopnea or palpitations Respiratory/Chest Respiratory/Chest: Reports cough, dyspnea, productive cough, shortness of breath at rest, shortness of breath with exertion and wheezing; Denies excessive phlegm production or hemoptysis Gastrointestinal Gastrointestinal: Denies abdominal pain, coffee ground emesis, constipation, diarrhea, dyspepsia, hematemesis, hematochezia or loose stools Genitourinary Genitourinary: Denies burning urination, difficulty urinating, dysuria, hematuria, nocturia, urinary frequency, urinary hesitancy or urinary inco ntinence Musculoskeletal Musculoskeletal: Denies arthralgias, back pain, joint pain, joint stiffness or joint swelling Neurologic Neurologic: Denies abnormal gait, abnormal speech, confusion, disequilibrium, dizziness, focal weakness or headache(s) Psychiatric Psychiatric: Denies anxiety, depression or homicidal ideation Endocrine Endocrinology: Denies change in body appearance, cold intolerance or excessive sweating Hematologic/Lymphatic Hematologic/Lymphatic: Denies anemia, easy bleeding or easy bruising Allergic/Immunologic Allergic/Immunologic: Denies rhinitis, hives, eczemia or asthma Physical Exam Narrative Physical exam: General: Alert, Oriented x3, Cooperative, on 4 L of oxygen HEENT: Atraumatic Oral: Moist Mucosa Neck: Supple Lungs: Diminished to auscultation Cardiovascular: HS I+II, regular, no murmurs Abdomen: Bowel Sounds Present, Soft, Non Tender Extremities:Bilateral leg edema +1 Skin: No rashes, No breakdown Neurological: Grossly intact Psych/Mental Status: Appropriate Lab / Micro Data Result Diagrams: 10/24/21 06:03 10/23/21 12:30 Labs: Laboratory Results - last 24 hr 10/23/21 21:48: POC Glucose 117 H 10/24/21 06:03: WBC 5.6, RBC 2.59 L, Hgb 6.6 L, Hct 21.8 L, MCV 84.2, MCH 25.5 L , MCHC 30.3 L, RDW Std Deviation 46.9 H, RDW Coeff of Rafael 15.5 H, Plt Count 265, MPV 10.0, Immature Gran % (Auto) 0.900, Neut % (Auto) 81.5 H, Lymph % (Auto) 14.8 L, [place] % (Auto) 1.6, Eos % (Auto) 0.7, Baso % (Auto) 0.5, Absolute Neuts (auto) 4.6, Absolute Lymphs (auto) 0.83, Nucleated RBC % 0 10/24/21 06:03: B-Natriuretic Peptide 249.7 H 10/24/21 06:09: POC Glucose 216 H 10/24/21 06:47: Blood Type AB POSITIVE, Antibody Screen NEGATIVE, Crossmatch See Detail 10/24/21 06:47: Crossmatch See Detail 10/24/21 11:42: POC Glucose 238 H 10/24/21 16:23: POC Glucose 276 H Micro: Microbiology 10/23/21 14:25 Mucosa - Nasopharyngeal Respiratory Panel (PCR) - Final Rhinovirus 10/23/21 13:23 Nasal Secretion SARS-CoV-2 & FLU Antigen (Rapid) - Final Charges/Coding Visit Charges Inpatient E&M: 41602 Init Hosp L2
[2021-10-24 18:39] LABS: Hematocrit 28.1 % (40-54)
[2021-10-24] MEDS: Mirtazapine 15 MG Tablet 7.5 MG PO (21:05)
[2021-10-24] MEDS: Atorvastatin Calcium 20 MG Tablet PO (21:05)
[2021-10-24] MEDS: Insulin Glargine-YFGN 100 UNIT/ML Pen SC (21:14)
[2021-10-24 21:51] LABS: Bedside Glucose 404 mg/dL (74-106)
[2021-10-25] VITALS (17 sets, daily range): BP systolic 95–139; BP diastolic 47–81; PULSE 57–80; RESP 15–20; TEMP 36.2–36.8; O2SAT 91–100; BMI 25.9
--- NOTE | 2021-10-25 05:00 | RAD_ITS ---
STUDY: X-RAY CHEST REASON FOR EXAM: Male, 71 years old. PREOP TECHNIQUE: Single AP portable view of the chest. COMPARISON: Comparison is made with prior study dated 10/23/2021. FINDINGS: Mild increased markings at the left lung base suggestive of atelectasis and/or early infiltrate. Blunting of both costophrenic angles. Sternal cerclage wires and vascular clips are present from a prior sternotomy and coronary artery bypass graft procedure (CABG). Normal mediastinum and sho. Normal visualized pulmonary arteries. There is atherosclerotic tortuosity of the aortic arch and descending thoracic aorta. There are diffuse degenerative changes of the visualized thoracic spine. Normal visualized ribs, clavicles, and shoulders. There is no demonstrated abnormality of the visualized soft tissue structures of the upper abdomen. RAD/Chest 1 View (Portable) IMPRESSION: Mild increased markings at the left lung base suggestive of atelectasis and/or early infiltrate. Blunting of both costophrenic angles. Electronically Signed: Brett Fontanez MD at 8:51 EDT ,
[2021-10-25] MEDS: 0.9% Saline Lock 10 ML Syringe IV ×5 (05:24→21:50)
[2021-10-25] MEDS: Insulin Lispro 100 UNIT/ML INSULN.PEN SC ×4 (06:08→21:53)
[2021-10-25 06:13] LABS: Absolute Lymphocyte Count 0.75 X10^3/uL (0.83-4.51); Absolute Neutrophil Count 5.5 X10^3/uL (2.0-7.7); Basophil# 0.01 X10^3/uL; Basophil% 0.2 % (0-1); Hemoglobin 8.8 g/dL (13.0-16.5); Lymphocyte # 0.75 X10^3/ul (0.83-4.51); Lymphocyte % 11.5 % (19-41); Mean Corp Hgb Conc 31.4 g/dL (32-36); Mean Corpuscular Hgb 26.3 pg (27.0-32.0); Mean Corpuscular Volume 83.6 fL (80-94); Monocyte# 0.22 X10^3/uL; Monocyte% 3.4 % (0-10); NRBC Flagged by Analyzer 0 % (0-5); Neutrophil # 5.49 X10^3/uL (2.7-7.7); Neutrophil % 84.1 % (47-70); Platelet Count 274 K/mm3 (150-450); RBC Distribution Width CV 15.3 % (11.6-14.6); RBC Distribution Width SD 46.3 fl (35.1-43.9); Red Blood Count 3.35 M/mm3 (4.6-6.2); White Blood Count 6.5 K/mm3 (4.4-11.0)
[2021-10-25 06:20] LABS: International Normalized Ratio 1.1; Prothrombin Time (Protime)PT. 13.6 SECONDS (11.7-14.9)
[2021-10-25 06:21] LABS: Partial Thromboplast Time 32.7 Seconds (24.1-36.2)
[2021-10-25 06:30] LABS: Bedside Glucose 233 mg/dL (74-106)
[2021-10-25 06:44] LABS: AST(SGOT) 9 U/L (15-37); Alanine Aminotransfer ALT/SGPT 14 U/L (16-61); Albumin, Serum 2.6 g/dL (3.2-5.0); Alkaline Phosphatase 77 U/L (45-117); Anion Gap 7 (5-15); BUN 25 mg/dL (7-18); BUN/Creat Ratio 21.2 RATIO (10-20); Bilirubin, Direct 0.13 mg/dL (0.00-0.30); Calcium,Total 8.6 mg/dL (8.5-10.1); Chloride 107 mmol/L (98-107); Creatinine, Serum 1.18 mg/dL (0.70-1.30); EST Glomerular Filtration Rate 65 mL/min (>60); Est Glom Filt Rate - Afr Amer 78 mL/min (>60); Estimated Creatinine Clearance 60.27 ml/min; Glucose 222 mg/dL (74-106); Potassium 4.4 mmol/L (3.5-5.1); Protein, Total 5.6 g/dL (6.4-8.2); Sodium Level 141 mmol/L (136-145)
[2021-10-25] MEDS: Ipratropium/Albuterol Sulfate 3 ML AMPUL.NEB INHALATION ×3 (07:27→19:25)
[2021-10-25 08:16] LABS: Hemoglobin A1c 6.5 % (3.8-5.6)
[2021-10-25] MEDS: Metoprolol Tartrate 25 MG Tablet 12.5 MG PO ×2 (09:00→21:48)
[2021-10-25] MEDS: Ferrous Sulfate 325 MG Tablet PO ×2 (09:03→21:49)
[2021-10-25] MEDS: Escitalopram Oxalate 10 MG Tablet PO (09:03)
[2021-10-25] MEDS: Insulin Glargine-YFGN 100 UNIT/ML Pen SC (09:03)
[2021-10-25 09:35] LABS: Bedside Glucose 231 mg/dL (74-106)
--- NOTE | 2021-10-25 10:07 | PCM.PN.HOSP ---
Subjective Subjective Follow-up on acute COPD exacerbation/GI bleed: Patient was seen and examined. No acute events overnight. Remains on 3 L of oxygen. He has been kept n.p.o. since midnight for EGD today. Objective Data Objective Data Vital Signs: Vital Signs Temp Pulse Resp BP Pulse Ox O2 Del Method O2 Flow Rate 97.7 F L 70 16 137/69 H 95 Nasal Cannula 3 10/25/21 05:28 10/25/21 09:00 10/25/21 07:27 10/25/21 09:00 10/25/21 07:31 10/25/21 07:31 10/25/21 07:31 Oxygen Flow Rate (L/min) 3 Oxygen Delivery Method Nasal Cannula Weight: 84.5 kg Body Mass Index (BMI) 25.9 Intake & Output: Intake and Output for Last 24 Hours 10/23/21 10/24/21 10/25/21 23:59 23:59 23:59 Intake Total 825 / 825 745 / 745 110 / 110 Output Total 2100 / 2100 550 / 550 Balance 825 / 825 -1355 / -1355 -440 / -440 Lab / Micro Data Result Diagrams: 10/25/21 05:20 10/25/21 05:20 Labs: Laboratory Results - last 24 hr 10/24/21 06:47: Blood Type AB POSITIVE, Antibody Screen NEGATIVE, Crossmatch See Detail 10/24/21 06:47: Crossmatch See Detail 10/24/21 11:42: POC Glucose 238 H 10/24/21 16:23: POC Glucose 276 H 10/24/21 18:30: Hgb 9.0 L, Hct 28.1 L 10/24/21 21:12: POC Glucose 404 H 10/25/21 05:20: WBC 6.5, RBC 3.35 L, Hgb 8.8 L, Hct 28.0 L, MCV 83.6, MCH 26.3 L, MCHC 31.4 L, RDW Std Deviation 46.3 H, RDW Coeff of Rafael 15.3 H, Plt Count 274, MPV 11.0, Immature Gran % (Auto) 0.800, Neut % (Auto) 84.1 H, Lymph % (Auto) 11.5 L, [place] % (Auto) 3.4, Eos % (Auto) 0.0, Baso % (Auto) 0.2, Absolute Neuts (auto) 5.5, Absolute Lymphs (auto) 0.75 L, Nucleated RBC % 0 10/25/21 05:20: PT 13.6, INR 1.1, APTT 32.7 10/25/21 05:20: Sodium 141, Potassium 4.4, Chloride 107, Carbon Dioxide 27.0, Anion Gap 7, BUN 25 H, Creatinine 1.18, Estim Creat Clear Calc 60.27, Est GFR (MDRD) Af Amer 78, Est GFR (MDRD) Non-Af 65, BUN/Creatinine Ratio 21.2 H, Glucose 222 H, Calcium 8.6, Total Bilirubin 0.40, Direct Bilirubin 0.13, AST 9 L, ALT 14 L, Alkaline Phosphatase 77, Total Protein 5.6 L, Albumin 2.6 L, Globulin 3.0 10/25/21 05:20: Hemoglobin A1c 6.5 H 10/25/21 06:07: POC Glucose 233 H 10/25/21 09:08: POC Glucose 231 H Micro: Microbiology 10/23/21 12:56 Blood Culture (Wb) - Anticubital Right Blood Culture - Preliminary No growth in 48 hours. 10/23/21 12:36 Blood Culture (Wb) - Anticubital Right Blood Culture - Preliminary No growth in 48 hours. 10/23/21 14:25 Mucosa - Nasopharyngeal Respiratory Panel (PCR) - Final Rhinovirus 10/23/21 13:23 Nasal Secretion SARS-CoV-2 & FLU Antigen (Rapid) - Final Radiography Diagnostic Testing: Radiology Impression Chest X-Ray 10/25/21 05:00 IMPRESSION: Mild increased markings at the left lung base suggestive of atelectasis and/or early infiltrate. Blunting of both costophrenic angles. Electronically Signed: Brett Fontanez MD at 8:51 EDT , Physical Exam Narrative Physical exam: General: Alert, Oriented x3, Cooperative, on 3 L of oxygen HEENT: Atraumatic Oral: Moist Mucosa Neck: Supple Lungs: Diminished to auscultation Cardiovascular: HS I+II, regular, no murmurs Abdomen: Bowel Sounds Present, Soft, Non Tender Extremities:Bilateral leg edema +1 Skin: No rashes, No breakdown Neurological: Grossly intact Psych/Mental Status: Appropriate Assessment & Plan Assessment/Plan (1) COPD exacerbation: (2) 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: PLAN: Plan 1. Acute on chronic anemia, iron deficiency, likely secondary to GI bleed H/o GI bleed, refractory to oral iron Hb today is 8.8, s/p 2 units p RBCs GI consulted, patient is going for EGD Continue on PPI IV BID 2. Acute Rhinovirus COPD exacerbation, improving, currently on 3 L oxygen Patient with history of COPD and chronic hypoxic respiratory failure, on 3 L of oxygen at home Continue on IV azithromycin, breathing treatment prn Will switch to prednisone 3. Type II DM, HbA1c 6.0, BS is uncontrolled, Started on Lantus insulin, blood glucose checks with ISS 4. Hypertension, controlled, continue on metoprolol 5. CAD s/p stents in LAD, RCA(2001), left circumflex(2013)/hyperlipidemia, stable Aspirin and Plavix held Continue on statin 6. 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/p IVC filter 7. DVT PPx-SCDs Charges/Coding Visit Charges Inpatient E&M: 12487 Subs Hosp L2
[2021-10-25] MEDS: Albuterol 2.5 MG/3 ML VIAL.NEB. INHALATION (10:34)
[2021-10-25] MEDS: Furosemide 40 MG/4 ML Vial IV (11:30)
[2021-10-25 12:11] LABS: Bedside Glucose 278 mg/dL (74-106)
[2021-10-25 15:55] LABS: Bedside Glucose 206 mg/dL (74-106)
--- NOTE | 2021-10-25 17:16 | OP.CCLET_ITS ---
11/30/2021 Ceci Vaca Re : Upper GI endoscopy procedure for Jaydon Quintana Meaganr Wang This procedure was performed on October. My impressions and recommendations are as follows: Impressions : - Normal esophagus. - Red blood in the gastric fundus and in the cardia. - Friable gastric mucosa. Treated with bipolar cautery. 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 Treated with a monopolar probe. 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 Recommendations : - Written discharge instructions were provided to the patient. - The signs and symptoms of potential delayed complications were discussed with the patient. - Patient has a contact number available for emergencies. - Return to normal activities tomorrow. - Resume previous diet. - Continue present medications. - Use sucralfate tablets 1 gram PO QID for 2 months. - Use Protonix (pantoprazole) 40 mg PO BID for 8 weeks. My findings are described in the full procedure note, which is enclosed. If I can be of further assistance, please feel free to contact me at . Sincerely, Khai Galeana, 10/25/2021 5:15:42 PM This report has been signed electronically.
--- NOTE | 2021-10-25 17:16 | OP.EGD_ITS ---
Patient Name: Jaydon Quintana Procedure Date: 10/25/2021 4:42 PM Date of : 1950 Age: 71 Procedure: Upper GI endoscopy Indications: Acute post hemorrhagic anemia, Coffee-ground emesis Providers: Khai Galeana DO Medicines: Monitored Anesthesia Care Patient Profile: This is a 71 year old male. Refer to note in patient chart for documentation of history and physical. Patient has symptoms. Complications: No immediate complications. Procedure: Pre-Anesthesia Assessment: - Prior to the procedure, a History and Physical was performed, and patient medications and allergies were reviewed. The patient is competent. The risks and benefits of the procedure and the sedation options and risks were discussed with the patient. All questions were answered and informed consent was obtained. Patient identification and proposed procedure were verified by the physician in the pre-procedure area. Mental Status Examination: alert and oriented. Airway Examination: normal oropharyngeal airway and neck mobility. Respiratory Examination: clear to auscultation. CV Examination: normal. Prophylactic Antibiotics: The patient does not require prophylactic antibiotics. Prior Anticoagulants: The patient has taken no previous anticoagulant or antiplatelet agents. ASA Grade Assessment: II - A patient with mild systemic disease. After reviewing the risks and benefits, the patient was deemed in satisfactory condition to undergo the procedure. The anesthesia plan was to use moderate sedation / analgesia (conscious sedation). Immediately prior to administration of medications, the patient was re-assessed for adequacy to receive sedatives. The heart rate, respiratory rate, oxygen saturations, blood pressure, adequacy of pulmonary ventilation, and response to care were monitored throughout the procedure. The physical status of the patient was re-assessed after the procedure. After obtaining informed consent, the endoscope was passed under direct vision. Throughout the procedure, the patient's blood pressure, pulse, and oxygen saturations were monitored continuously. The Colonoscope was introduced through the mouth, and advanced to the fourth part of duodenum. The upper GI endoscopy was accomplished without difficulty. The patient tolerated the procedure well. Scope In: 4:50:29 PM Scope Out: 5:04:32 PM Total Procedure Duration Time 0 hours 14 minutes 3 seconds Findings: The examined esophagus was normal. Red blood was found in the cardia and in the gastric fundus. Localized severely friable mucosa with contact bleeding was found in the gastric fundus. Coagulation for hemostasis using bipolar probe was successful. Estimated blood loss was minimal. Three 5 mm angiodysplastic lesions without bleeding were found in the third portion of the duodenum. Coagulation for hemostasis using monopolar probe was successful. Estimated blood loss was minimal. Impression: - Normal esophagus. - Red blood in the gastric fundus and in the cardia. - Friable gastric mucosa. Treated with bipolar cautery. 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 Treated with a monopolar probe. 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 Recommendation: - Written discharge instructions were provided to the patient. - The signs and symptoms of potential delayed complications were discussed with the patient. - Patient has a contact number available for emergencies. - Return to normal activities tomorrow. - Resume previous diet. - Continue present medications. - Use sucralfate tablets 1 gram PO QID for 2 months. - Use Protonix (pantoprazole) 40 mg PO BID for 8 weeks. Procedure Code(s): --- Professional --- 56166, Esophagogastroduodenoscopy, flexible, transoral; with control of bleeding, any method CPT copyright 2017 [employer]. All rights reserved. The codes documented in this report are preliminary and upon psychological anthropologist review may be revised to meet current compliance requirements. Khai Galeana DO 10/25/2021 5:15:42 PM This report has been signed electronically. Number of Addenda: 1 Note Initiated On: 10/25/2021 4:42 PM Addendum Number: 1 Addendum Date: 11/30/2021 6:19:37 AM MAC was used as sedation for this procedure. Khai Galeana DO 11/30/2021 6:19:41 AM This report has been signed electronically.
[2021-10-25 18:15] LABS: Bedside Glucose 193 mg/dL (74-106)
[2021-10-25] MEDS: Sucralfate 1 GM Tablet PO (18:20)
[2021-10-25] MEDS: Mirtazapine 15 MG Tablet 7.5 MG PO (21:49)
[2021-10-25] MEDS: Atorvastatin Calcium 20 MG Tablet PO (21:49)
[2021-10-25] MEDS: Insulin Glargine-YFGN 100 UNIT/ML Pen 10 UNIT SC (21:53)
[2021-10-25 22:15] LABS: Bedside Glucose 188 mg/dL (74-106)
[2021-10-26 05:10] VITALS: BP 126/45; PULSE 60; RESP 18; TEMP 36.5; O2SAT 100
[2021-10-26] MEDS: Sucralfate 1 GM Tablet PO ×2 (06:53→10:47)
[2021-10-26] MEDS: Ipratropium/Albuterol Sulfate 3 ML AMPUL.NEB INHALATION (06:58)
[2021-10-26 07:00] VITALS: PULSE 62; RESP 16; O2SAT 93
[2021-10-26 07:20] LABS: Bedside Glucose 113 mg/dL (74-106)
[2021-10-26 08:04] LABS: Absolute Lymphocyte Count 0.85 X10^3/uL (0.83-4.51); Absolute Neutrophil Count 6.8 X10^3/uL (2.0-7.7); Basophil# 0.02 X10^3/uL; Basophil% 0.2 % (0-1); Eosinophil# 0.03 X10^3/uL; Eosinophils% 0.3 % (0-5); Hematocrit 29.4 % (40-54); Lymphocyte # 0.85 X10^3/ul (0.83-4.51); Lymphocyte % 9.6 % (19-41); Mean Corp Hgb Conc 30.6 g/dL (32-36); Mean Corpuscular Hgb 26.2 pg (27.0-32.0); Mean Corpuscular Volume 85.5 fL (80-94); Mean Platelet Vol. 10.2 fl (6.2-12.0); Monocyte# 1.11 X10^3/uL; Monocyte% 12.5 % (0-10); NRBC Flagged by Analyzer 0 % (0-5); Neutrophil # 6.76 X10^3/uL (2.7-7.7); Neutrophil % 75.9 % (47-70); Platelet Count 316 K/mm3 (150-450); RBC Distribution Width CV 15.9 % (11.6-14.6); RBC Distribution Width SD 49.1 fl (35.1-43.9); Red Blood Count 3.44 M/mm3 (4.6-6.2); White Blood Count 8.9 K/mm3 (4.4-11.0)
[2021-10-26 08:21] VITALS: PULSE 70
[2021-10-26 08:21] LABS: AST(SGOT) 8 U/L (15-37); Alanine Aminotransfer ALT/SGPT 11 U/L (16-61); Albumin, Serum 2.7 g/dL (3.2-5.0); Alkaline Phosphatase 71 U/L (45-117); Anion Gap 7 (5-15); BUN 26 mg/dL (7-18); BUN/Creat Ratio 20.3 RATIO (10-20); Calcium,Total 8.7 mg/dL (8.5-10.1); Chloride 106 mmol/L (98-107); Creatinine, Serum 1.28 mg/dL (0.70-1.30); EST Glomerular Filtration Rate 59 mL/min (>60); Est Glom Filt Rate - Afr Amer 71 mL/min (>60); Estimated Creatinine Clearance 55.56 ml/min; Globulin 2.6 g/dL (2.2-4.2); Glucose 120 mg/dL (74-106); Protein, Total 5.3 g/dL (6.4-8.2); Sodium Level 143 mmol/L (136-145)
[2021-10-26] MEDS: predniSONE 20 MG Tablet 40 MG PO (08:21)
[2021-10-26] MEDS: Metoprolol Tartrate 25 MG Tablet 12.5 MG PO (08:21)
[2021-10-26] MEDS: Escitalopram Oxalate 10 MG Tablet PO (08:21)
[2021-10-26] MEDS: Ferrous Sulfate 325 MG Tablet PO (08:22)
[2021-10-26] MEDS: Insulin Glargine-YFGN 100 UNIT/ML Pen 10 UNIT SC (08:23)
[2021-10-26 08:55] VITALS: BP 136/77; PULSE 70; RESP 18; TEMP 36.6; O2SAT 93
--- NOTE | 2021-10-26 10:53 | DS.PCM_ITS ---
Providers Date of Admission: 10/23/21 Date of Discharge: 10/26/21 Primary Care Physician: SORIN MCKENZIE Consultations 10/24/21 06:35 Consult: Gastroenterology Routine Consulting Provider: Ra Lissetthsaan Reason for Consult: Anemia EMERGENT Consult: No MD Notified: Yes Date Notified: 10/24/21 Time Notified: 06:35 Method of Notification: Verbal Reason For Visit: EXACERBATION OF COPD Diagnosis Discharge Diagnosis (1) COPD exacerbation: Status: Chronic Code(s): J44.1 - Chronic obstructive pulmonary disease with (acute) exacerbation (2) 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: Status: Chronic Code(s): D50.8 - Other iron deficiency anemias Plan 1. Acute on chronic anemia, iron deficiency 2. Acute GI bleed 3. Acute Rhinovirus COPD exacerbation 4. Type II DM 5. Hypertension 6. CAD s/p stents in LAD, RCA(2001), left circumflex(2013) 7. Hyperlipidemia 8. 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/p IVC filter Medications at Discharge Home Medications cholecalciferol (vitamin D3) 25 mcg (1,000 unit) capsule 25 mcg PO DAILY vitamin 07/17/20 nitroglycerin 0.4 mg sublingual tablet (Nitrostat) 0.4 mg sublingual Q5M PRN chest pain #30 tabs 09/25/20 ferrous sulfate 325 mg (65 mg iron) tablet 325 mg PO BID iron supplement 04/26/21 ipratropium 0.5 mg-albuterol 3 mg (2.5 mg base)/3 mL nebulization soln 3 ml inhalation Q4H PRN PRN SOB &/OR WHEEZING #180 mL 06/18/21 escitalopram oxalate 10 mg tablet 10 mg PO DAILY mood 30 days #90 tabs 06/21/21 mirtazapine 15 mg tablet (Remeron) 7.5 mg PO QHS bm 30 days #90 tabs 06/21/21 pantoprazole 40 mg tablet,delayed release 40 mg PO BID acid reflux 30 days #180 tabs 06/21/21 potassium chloride 10 mEq tablet,extended release(part/cryst) 10 meq PO DAILY@0800 vitamin 08/06/21 atorvastatin 40 mg tablet 20 mg PO QHS cholesterol 10/09/21 metoprolol tartrate 25 mg tablet 12.5 mg PO BID BP 08/16/22 azithromycin 500 mg tablet 500 mg PO DAILY 2 days #2 tabs 10/26/21 pantoprazole 40 mg tablet,delayed release 40 mg PO BID 30 days #60 tabs 10/26/21 prednisone 20 mg tablet 40 mg PO DAILY 5 days #10 tabs 10/26/21 sucralfate 1 gram tablet 1 g PO 4X/DAY 30 days #120 tabs 10/26/21 Hospital Course Operations None Procedures EGD (10/25/21) Summary of Care Provided Minutes Spent on Discharge: 35 Hospital Course: 71 y/o male with PMHx of chronic respiratory failure secondary to COPD, on 3-4 L of oxygen, h/o GI bleed secondary to AVM, who presented with progressive shortness of breath. Patient's admitting chest x-ray showed no evidence of acute disease. His rapid COVID-19 test was negative. Influenza was negative. He was admitted to the [facility] floor and managed as acute COPD exacerbation. His respiratory panel came back positive for rhinovirus. He was managed on IV Solu- Medrol, breathing treatment, azithromycin. Patient was found to be anemic. His hemoglobin dropped to 6.6. He received 2 units of packed RBC. GI was consulted, and started on IV PPI. He underwent EGD on 10/25/2021. Findings showed red blood in the gastric fundus and the cardia, friable gastric mucosa that was treated with bipolar cautery, 3 nonbleeding angiodysplastic lesions in the duodenum, treated with monopolar probe. Patient received 3 doses of IV Venofer in the hospital. Patient's hemoglobin at discharge was 9.0. He was discharged on PPI twice daily, carafate QID. He was asked to hold off on aspirin for about a week prior to initiating. He will follow-up with GI within 2 weeks. He also need to follow-up with his primary care doctor within 1 week. He was discharged on a short burst of prednisone 40 mg p.o. daily for 5 days as well as 2 more days of azithromycin making a total of 5 days. Patient was discharged home on his 3 L of oxygen which is his baseline. Physical Exam Narrative Physical exam: General: Alert, Oriented x3, Cooperative, on 3 L of oxygen HEENT: Atraumatic Oral: Moist Mucosa Neck: Supple Lungs: Diminished to auscultation Cardiovascular: HS I+II, regular, no murmurs Abdomen: Bowel Sounds Present, Soft, Non Tender Extremities:Bilateral leg edema +1 Skin: No rashes, No breakdown Neurological: Grossly intact Psych/Mental Status: Appropriate Weight / BMI Weight Weight: 84.5 kg Body Mass Index (BMI) 25.9 ABG / Lab / Microbiology Data Result Diagrams: 10/26/21 07:55 10/26/21 07:55 Laboratory: Laboratory Results - last 24 hr 10/25/21 11:26: POC Glucose 278 H 10/25/21 15:36: POC Glucose 206 H 10/25/21 17:56: POC Glucose 193 H 10/25/21 21:47: POC Glucose 188 H 10/26/21 06:52: POC Glucose 113 H 10/26/21 07:55: WBC 8.9, RBC 3.44 L, Hgb 9.0 L, Hct 29.4 L, MCV 85.5, MCH 26.2 L , MCHC 30.6 L, RDW Std Deviation 49.1 H, RDW Coeff of Rafael 15.9 H, Plt Count 316, MPV 10.2, Immature Gran % (Auto) 1.500 H, Neut % (Auto) 75.9 H, Lymph % (Auto) 9.6 L, [place] % (Auto) 12.5 H, Eos % (Auto) 0.3, Baso % (Auto) 0.2, Absolute Neuts (auto) 6.8, Absolute Lymphs (auto) 0.85, Nucleated RBC % 0 10/26/21 07:55: Sodium 143, Potassium 4.0, Chloride 106, Carbon Dioxide 30.0, Anion Gap 7, BUN 26 H, Creatinine 1.28, Estim Creat Clear Calc 55.56, Est GFR (MDRD) Af Amer 71, Est GFR (MDRD) Non-Af 59 L, BUN/Creatinine Ratio 20.3 H, Glucose 120 H, Calcium 8.7, Total Bilirubin 0.40, AST 8 L, ALT 11 L, Alkaline Phosphatase 71, Total Protein 5.3 L, Albumin 2.7 L, Globulin 2.6, Albumin/Globulin Ratio 1.0 Microbiology: Microbiology 10/23/21 12:56 Blood Culture (Wb) - Anticubital Right Blood Culture - Preliminary No growth in 48 hours. 10/23/21 12:36 Blood Culture (Wb) - Anticubital Right Blood Culture - Preliminary No growth in 48 hours. 10/23/21 14:25 Mucosa - Nasopharyngeal Respiratory Panel (PCR) - Final Rhinovirus 10/23/21 13:23 Nasal Secretion SARS-CoV-2 & FLU Antigen (Rapid) - Final D/C Instructions Discharge Diet: Low fat / Low cholesterol, 2000 mg Sodium Diet and Carb Control Diet Meaningful Use Info Meaningful Use Diagnoses (Choose all that apply): None applicable Discharge Plan Admission Admit Date/Time: 10/23/21 14:12 Primary Reason for Your Visit: GI bleed/Acute COPD exacerbation Attending Provider: Suze Rosas Primary Care Provider: OLEG ELIZONDO Consulting Providers: Khai Galeana ; Lalo Dewitt Instructions Additional Instructions / Restrictions: Take note of changes to your medications. Complete your short burst of prednisone Resume aspirin after 7 days Follow-up with your PCP in 1 week and with GI in 2 weeks. Discharge Orders/Prescriptions Prescriptions: New sucralfate 1 gram Tablet 1 g PO 4X/DAY 30 Days Qty: 120 0RF prednisone 20 mg tablet 40 mg PO DAILY 5 Days Qty: 10 0RF pantoprazole 40 mg tablet,delayed release (DR/EC) 40 mg PO BID 30 Days Qty: 60 0RF azithromycin 500 mg tablet 500 mg PO DAILY 2 Days Qty: 2 0RF Continued cholecalciferol (vitamin D3) 25 mcg (1,000 unit) capsule 25 mcg PO DAILY nitroglycerin [Nitrostat] 0.4 mg tablet, sublingual 0.4 mg SUBLINGUAL Q5M PRN (Reason: chest pain) Qty: 30 0RF Rx Instructions: until response; do not exceed 3 doses per episode metoprolol tartrate 25 mg tablet 12.5 mg PO BID ferrous sulfate 325 mg (65 mg iron) tablet 325 mg PO BID potassium chloride 10 mEq tablet,ER particles/crystals 10 meq PO DAILY@0800 atorvastatin 40 mg tablet 20 mg PO QHS ipratropium-albuterol 0.5 mg-3 mg(2.5 mg base)/3 mL solution for nebulization 3 ml inhalation Q4H PRN PRN (Reason: SOB &/OR WHEEZING) Qty: 180 6RF escitalopram oxalate 10 mg tablet 10 mg PO DAILY 30 Days Qty: 90 3RF mirtazapine [Remeron] 15 mg tablet 7.5 mg PO QHS 30 Days Qty: 90 3RF pantoprazole 40 mg tablet,delayed release (DR/EC) 40 mg PO BID 30 Days Qty: 180 3RF Discontinued aspirin [Adult Aspirin Regimen] 81 mg tablet,delayed release (DR/EC) 81 mg PO DAILY Referrals / Follow Up: Khai Galeana DO [Med Staff - Active Staff] - Within 2 Weeks OLEG ELIZONDO NP-C [Primary Care Provider] - Within 1 Week Disposition Disposition (needs filled in before D/C Order can be placed): Home Health Service Charges/Coding Visit Charges Inpatient E&M: 84742 Disch Hosp
[2021-10-26] MEDS: Insulin Lispro 100 UNIT/ML INSULN.PEN SC (10:54)
[2021-10-26 11:03] VITALS: BP 137/68; PULSE 68; RESP 18; TEMP 36.6; O2SAT 94
[2021-10-26 11:15] LABS: Bedside Glucose 236 mg/dL (74-106)
--- NOTE | 2021-10-26 11:19 | CASEMGMT ---
Addendum entered by Ros Camarillo 10/26/21 14:01: Received confirmation that [facility] will see pt tomorrow to resume care. Original Note: Uploaded DC information via [facility] to [facility] as pt will be dc'd today.
== END 2021-10-26 13:13 | disposition home health service (06) | DRG 191 ==
LOC: ED 14:09 → MS3 14:37
PROVIDERS: Anesthesiology; Internal Medicine Gastroenterology; Admitting Provider Internal Medicine; Emergency Provider Emergency Medicine; PCP Nurse Practitioner Family; Visit Provider Internal Medicine
PROC: 0DJ08ZZ Inspection of Upper Intestinal Tract, Via Natural or Artificial Opening Endoscopic (ICD-10-PCS; CPT 43235; principal; 2021-10-25 16:25)
DX: J44.1 Chronic obstructive pulmonary disease with (acute) exacerbation (principal); J96.11 Chronic respiratory failure with hypoxia; D62 Acute posthemorrhagic anemia; Q27.30 Arteriovenous malformation, site unspecified; E11.9 Type 2 diabetes mellitus without complications; M06.9 Rheumatoid arthritis, unspecified; E78.5 Hyperlipidemia, unspecified; I10 Essential (primary) hypertension; I25.10 Atherosclerotic heart disease of native coronary artery without angina pectoris; K31.819 Angiodysplasia of stomach and duodenum without bleeding; B34.8 Other viral infections of unspecified site; Z79.82 Long term (current) use of aspirin; Z87.891 Personal history of nicotine dependence; Z79.899 Other long term (current) drug therapy
CPT/HCPCS: 36415; 71045; 71250; 80048; 80053; 80076; 82962; 83036; 83605; 83880; 84484; 85014; 85018; 85025; 85610; 85730; 86850; 86900; 86901; 86920; 86922; 87040; 87428; 87633; 93005; 94640; 99285; 99406; J7040; J7050; P9016; A4216; J1940; J2916

== ENCOUNTER → 2021-11-16 | Outpatient (CLI) | payer MEDICARE, SELFPAY ==
[2021-11-16 16:03] LABS: Hematocrit 33.5 % (40-54); Hemoglobin 10.2 g/dL (13.0-16.5); Mean Corp Hgb Conc 30.4 g/dL (32-36); Mean Corpuscular Hgb 26.8 pg (27.0-32.0); Mean Corpuscular Volume 88.2 fL (80-94); Mean Platelet Vol. 10.9 fl (6.2-12.0); Platelet Count 218 K/mm3 (150-450); RBC Distribution Width CV 17.5 % (11.6-14.6); White Blood Count 8.6 K/mm3 (4.4-11.0)
== END | disposition home or self-care (01) ==
LOC: LABSPEC 15:55
PROVIDERS: PCP Nurse Practitioner Family
DX: D50.8 Other iron deficiency anemias (principal)
CPT/HCPCS: 85027

== ENCOUNTER 2021-12-08 17:05 | Inpatient (IN) | payer MEDICARE, SELFPAY ==
[2021-12-08] VITALS (13 sets, daily range): BP systolic 101–159; BP diastolic 55–87; PULSE 80–95; RESP 14–21; TEMP 37–37.4; O2SAT 93–98; BMI 26.9; BMI 26.0
--- NOTE | 2021-12-08 17:16 | EKG12_ITS ---
Test Reason : SOB Blood Pressure : / mmHG Vent. Rate : 089 BPM Atrial Rate : 000 BPM P-R Int : 000 ms QRS Dur : 082 ms QT Int : 364 ms P-R-T Axes : 000 027 032 degrees QTc Int : 442 ms Sinus rhythm with PSVC's and PVC's Abnormal ECG Confirmed by JOSEFINA TEIXEIRA, SAL ([id number]), material expeditor AVINASH MARTINEZ ([id number]) on 12/11/2021 8:23:01 AM Referred By: Confirmed By:SAL ROCHA MD
--- NOTE | 2021-12-08 17:18 | EDS_ITS ---
HPI History of Present Illness Chief Complaint: Shortness of Breath Detail of Chief Complaint: Shortness of breath x2 days Informant: patient Narrative Narrative: Patient presents the emergency department for shortness of breath over the last 2 days. Patient states that on his normal 5 L of O2 he could not get his oxygen level to go past 88%. He was advised by his primary care physician to come to the ER and be evaluated. Patient does have a cough that is chronic since February since having COVID at that time. Patient bringing up some milky white to yellow sputum. He denies any chest pain. He denies fevers. He does complain of exertional dyspnea. Patient also with prior history of PE and has a [place] filter. Patient patient not currently anticoagulated. [facility] Medical History (Updated 12/08/21 @ 19:[address] Margie Joy ) Acute respiratory failure with hypoxia Allergic rhinitis Arthritis Asthma Atherosclerosis of coronary artery of [place] heart without angina pectoris Bleeding tendency Cancer Chronic bronchitis Colon polyp COPD (chronic obstructive pulmonary disease) COVID-19 in immunocompromised patient Current use of insulin Diabetes DVT (deep venous thrombosis) (05/01/21) Essential hypertension FTT (failure to thrive) in adult Gastritis GI bleed (04/2021) High cholesterol History of basal cell carcinoma History of pilonidal cyst History of pulmonary embolus (PE) (04/30/21) History of stress test HTN (hypertension) Hyperglycemia Nicotine dependence, cigarettes, uncomplicated Non-Hodgkin lymphoma Obesity Physical debility Pneumonia Positive colorectal cancer screening using Cologuard test RA (rheumatoid arthritis) Rhinovirus Tobacco abuse Type 2 diabetes mellitus Ulcer 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 complications Home Medications cholecalciferol (vitamin D3) 25 mcg (1,000 unit) capsule 25 mcg PO DAILY vitamin 07/17/20 [History Last Taken 10/23/21] nitroglycerin 0.4 mg sublingual tablet (Nitrostat) 0.4 mg sublingual Q5M PRN chest pain #30 tabs 09/25/20 [Rx Last Taken Unknown] ferrous sulfate 325 mg (65 mg iron) tablet 325 mg PO BID iron supplement 04/26/21 [History Last Taken 10/23/21] ipratropium 0.5 mg-albuterol 3 mg (2.5 mg base)/3 mL nebulization soln 3 ml inhalation Q4H PRN PRN SOB &/OR WHEEZING #180 mL 06/18/21 [Rx Last Taken 10/23/21] escitalopram oxalate 10 mg tablet 10 mg PO DAILY mood 30 days #90 tabs 06/21/21 [Rx Last Taken 10/23/21] mirtazapine 15 mg tablet (Remeron) 7.5 mg PO QHS bm 30 days #90 tabs 06/21/21 [Rx Last Taken 10/22/21] potassium chloride 10 mEq tablet,extended release(part/cryst) 10 meq PO DAILY@0800 vitamin 08/06/21 [History Last Taken 10/23/21] atorvastatin 40 mg tablet 20 mg PO QHS cholesterol 10/09/21 [History Last Taken 10/22/21] metoprolol tartrate 25 mg tablet 12.5 mg PO BID BP 10/09/21 [History Last Taken 10/23/21] pantoprazole 40 mg tablet,delayed release 40 mg PO BID 30 days #60 tabs 10/26/21 [Rx Last Taken Unknown] sucralfate 1 gram tablet 1 g PO 4X/DAY 30 days #120 tabs 10/26/21 [Rx Last Taken Unknown] budesonide 1 mg/2 mL suspension for nebulization 1 mg (2 mL) inhalation BID #60 mL 11/02/21 [Rx Last Taken Unknown] Allergy/AdvReac Type Severity Reaction Status Date / Time levofloxacin [From Levaquin] AdvReac Intermediate diarrhea, Verified 12/08/21 17:06 dizziness, GI upset, weakness Family History Father Arthritis Bleeding disorder Hypertension Kidney disease Cancer Skin Anemia blood clots Emphysema lung Mother Colon cancer Cancer Lung Cancer Diabetes Brother Thyroid disorder Surgical History H/O cardiac catheterization History of coronary artery stent placement (10/22/13) History of excision of pilonidal cyst History of heart artery stent History of thymectomy Hx of lymph node excision Presence of IVC filter (04/2021) Status post cardiac surgery Social History household members: spouse Smoking Status: Former smoker second hand exposure: Yes quit status: considering quitting alcohol intake: current alcohol intake frequency: holidays/special occasions only substance use type: does not use caffeine: Yes Type: coffee Number of servings: 3 what type of physical activity do you participate in: none frequency: does not exercise seatbelt use: always ROS ROS ED Review of Systems ROS Unobtainable: other Constitutional Constitutional ED: Reports lethargy; Denies chills, fever(s), sweats or weight loss Eyes Eyes: Denies blurry vision, change in vision or diplopia ENT ENT ED: Denies rhinorrhea or sore throat Cardiovascular Cardiovascular: Denies chest pain, orthopnea or racing heartbeat Respiratory/Chest Respiratory/Chest: Reports dyspnea and dyspnea on exertion; Denies cough, orthopnea or sputum Gastrointestinal Gastrointestinal: Denies abdominal pain, diarrhea, nausea or vomiting Genitourinary Genitourinary ED: Denies dysuria, hematuria or urinary frequency Musculoskeletal Musculoskeletal: Denies arthralgias, back pain, myalgias or neck pain Integumentary Denies abscess, Abrasions or rash Neurologic Neurologic: Denies headache(s) or weakness Psychiatric Psychiatric: Denies anxiety, depression or suicidal thoughts Endocrine Endocrinology: Denies polydipsia, polyphagia or polyuria Hematologic/Lymphatic Hematologic/Lymphatic: Denies easy bleeding, easy bruising or lymphadenopathy Allergic/Immunologic Allergic/Immunologic ED: Denies mouth swelling, tongue swelling or urticaria EXAM Physical Exam Const Vital Signs: 12/08/21 17:06 12/08/21 17:09 12/08/21 17:24 Temperature 98.6 F Temperature Source Oral Pulse Rate 91 95 89 Respiratory Rate 18 16 20 H Respiratory Effort Respiratory Depth Respiratory Pattern Blood Pressure 159/78 H 159/78 H Blood Pressure Mean 105 105 Pulse Ox 96 93 Oxygen Delivery Method Nasal Cannula Nasal Cannula Oxygen Flow Rate (L/min) 5 5 12/08/21 17:24 12/08/21 17:08 12/08/21 17:32 Temperature 98.6 F Temperature Source Oral Pulse Rate 87 Respiratory Rate 14 Respiratory Effort Normal Non-Labored Respiratory Depth Normal Respiratory Pattern Normal Blood Pressure 101/87 H Blood Pressure Mean 91 Pulse Ox 95 93 Oxygen Delivery Method Nasal Cannula Nasal Cannula Nasal Cannula Oxygen Flow Rate (L/min) 5 5 5 12/08/21 18:08 12/08/21 18:57 12/08/21 19:11 Temperature 99.1 F 99.4 F H Temperature Source Oral Oral Pulse Rate 93 90 93 Respiratory Rate 16 20 H 18 Respiratory Effort Respiratory Depth Respiratory Pattern Blood Pressure 140/58 H 111/55 L 129/58 H Blood Pressure Mean 85 73 81 Pulse Ox 98 93 96 Oxygen Delivery Method Nasal Cannula Nasal Cannula Nasal Cannula Oxygen Flow Rate (L/min) 5 5 5 Positive well nourished and well developed General Appearance ED: well developed and NAD HEENT Reports TM's clear and moist mucous membranes normocephalic and atraumatic; Negative for trauma or tenderness Tympanic Membrane ED: Yes TM's clear Eyes PERRL and EOMs intact bilaterally General Eye ED: Negative for pale conjunctiva or scleral icterus Neck no lymphadenopathy, supple and no JVD General: Negative for tenderness Chest Wall inspection of chest normal and palpation of chest normal Chest: Negative for tenderness Resp normal respiratory effort Resp Narrative: Patient with mild expiratory wheezes. No accessory muscle use or retractions. No significant conversational dyspnea. Effort and Inspection: Negative for respiratory distress or pain with movement Auscultation: wheezes; Negative for rhonchi or diminished lung sounds Cardio regular rate, regular rhythm, S1 normal heart sound, S2 normal heart sound and no murmurs Peripheral Pulses: pulses 2+ throughout GI normal to inspection, nondistended, normoactive bowel sounds, soft to palpation, non-tender, non-distended and no masses Back/Spine no CVA tenderness and no thoracic nor lumbar tenderness Extremity normal to inspection General Extremety ED: Negative for edema General Extremity: Negative for edema Neuro oriented x3, CN's II-XII intact bilaterally, no sensory deficits noted and gait normal Sensorium / Orientation: awake, alert, oriented to person, oriented to place and oriented to time Motor Exam: strength 5/5 throughout and strength abnormal Psych mental status grossly normal Skin no rashes or lesions noted and no wounds MDM MDM MDM Narrative Medical decision making narrative: IV line established on arrival. Patient was given DuoNeb aerosol as well as Solu-Medrol 125 mg IV. Lab work-up obtained showed an elevated white count 11.5. Chest x-ray read by radiology as left lower lobe infiltrate. Patient was started on Zithromax and Rocephin IV. Due to elevated D-dimer CTA chest was obtained which was negative for PE. He was noted to have bronchiectasis and a 1 cm left upper lobe nodule for which they recommended PET CT scan. Sputum culture ordered and pending. Case discussed with hospitalist will evaluate patient for admission. Lab Data Attestation: I reviewed the patient's lab results. Labs: Laboratory Results - last 24 hr 12/08/21 12/08/21 12/08/21 17:20 17:20 17:20 WBC 11.5 H RBC 3.36 L Hgb 9.0 L Hct 29.8 L MCV 88.7 MCH 26.8 L MCHC 30.2 L RDW Std Deviation 57.9 H RDW Coeff of Rafael 17.9 H Plt Count 352 MPV 9.9 Immature Gran % (Auto) 2.700 H Neut % (Auto) 68.8 Lymph % (Auto) 15.0 L Taylor % (Auto) 9.0 Eos % (Auto) 3.8 Baso % (Auto) 0.7 Absolute Neuts (auto) 7.9 H Absolute Lymphs (auto) 1.72 Nucleated RBC % 0 D-Dimer Quant (PE/DVT) 1.50 H* Sodium 143 Potassium 4.0 Chloride 110 H Carbon Dioxide 26.0 Anion Gap 7 BUN 23 H Creatinine 1.19 Estim Creat Clear Calc 59.76 Est GFR (MDRD) Af Amer 77 Est GFR (MDRD) Non-Af 64 BUN/Creatinine Ratio 19.3 Glucose 200 H Calcium 9.1 Troponin I High Sens 11 B-Natriuretic Peptide 12/08/21 17:20 WBC RBC Hgb Hct MCV MCH MCHC RDW Std Deviation RDW Coeff of Rafael Plt Count MPV Immature Gran % (Auto) Neut % (Auto) Lymph % (Auto) Taylor % (Auto) Eos % (Auto) Baso % (Auto) Absolute Neuts (auto) Absolute Lymphs (auto) Nucleated RBC % D-Dimer Quant (PE/DVT) Sodium Potassium Chloride Carbon Dioxide Anion Gap BUN Creatinine Estim Creat Clear Calc Est GFR (MDRD) Af Amer Est GFR (MDRD) Non-Af BUN/Creatinine Ratio Glucose Calcium Troponin I High Sens B-Natriuretic Peptide 191.0 H Radiography Diagnostic Testing: Clinical Impression(s) from Imaging Studies Chest X-Ray 12/08/21 17:35 IMPRESSION: Emphysema with a left lower lobe pneumonia. Electronically Signed: Boston Myers MD at 17:46 EDT , Chest CTA 12/08/21 17:50 IMPRESSION: 1. No CT evidence of pulmonary embolism. 2. Mild emphysema with a 1 cm noncalcified left upper lobe nodule and correlation with PET CT scan is recommended. If PET negative, follow-up CT is recommended in 6 months document stability. 3. Bilateral diffuse symmetrical bronchiectasis with bibasilar mucous plugging. 4. Small bilateral pleural effusions with bibasilar atelectasis. 5. Cholelithiasis per Electronically Signed: Boston Myers MD at 18:44 EDT , 1 view chest x-ray obtained interpreted by myself as increased markings left l ower lobe suspicious for pneumonia. Radiology in agreement. EKG Initial EKG: Attestation: I personally reviewed and interpreted this EKG as follows: Comments: Sinus rhythm with a ventricular rate of 89 bpm with occasional PVCs and PACs. Discharge Plan Triage Chief Complaint: Shortness of Breath ED Provider: Margie Joy Dx/Rx/DC Orders Clinical Impression: Acute dyspnea, Pneumonia, Exertional dyspnea, Leukocytosis, COPD exacerbation Prescriptions: No Action cholecalciferol (vitamin D3) 25 mcg (1,000 unit) capsule 25 mcg PO DAILY nitroglycerin [Nitrostat] 0.4 mg tablet, sublingual 0.4 mg SUBLINGUAL Q5M PRN (Reason: chest pain) Qty: 30 0RF Rx Instructions: until response; do not exceed 3 doses per episode metoprolol tartrate 25 mg tablet 12.5 mg PO BID ferrous sulfate 325 mg (65 mg iron) tablet 325 mg PO BID potassium chloride 10 mEq tablet,ER particles/crystals 10 meq PO DAILY@0800 atorvastatin 40 mg tablet 20 mg PO QHS sucralfate 1 gram Tablet 1 g PO 4X/DAY 30 Days Qty: 120 0RF pantoprazole 40 mg tablet,delayed release (DR/EC) 40 mg PO BID 30 Days Qty: 60 0RF ipratropium-albuterol 0.5 mg-3 mg(2.5 mg base)/3 mL solution for nebulization 3 ml inhalation Q4H PRN PRN (Reason: SOB &/OR WHEEZING) Qty: 180 6RF escitalopram oxalate 10 mg tablet 10 mg PO DAILY 30 Days Qty: 90 3RF mirtazapine [Remeron] 15 mg tablet 7.5 mg PO QHS 30 Days Qty: 90 3RF budesonide 1 mg/2 mL suspension for nebulization 1 mg inhalation BID Qty: 60 6RF Primary Care Provider: OLEG ELIZONDO Referrals: OLEG ELIZONDO, SOCIAL SERVICES COORDINATOR-C [Primary Care Provider] - Disposition Disposition: Acute Care Hospital [facility]
[2021-12-08] MEDS: Ipratropium/Albuterol Sulfate 3 ML AMPUL.NEB INHALATION (17:21)
[2021-12-08] MEDS: MethylPREDNISolone 125 MG/2 ML Vial IV (17:30)
--- NOTE | 2021-12-08 17:35 | RAD_ITS ---
STUDY: X-RAY CHEST REASON FOR EXAM: Male, 71 years old. dyspnea TECHNIQUE: Single AP portable view of the chest. COMPARISON: 10/25/2021 FINDINGS: Status post median sternotomy. There is hyperinflation of the lungs consistent with chronic obstructive lung disease (COPD). Alveolar opacity in the lower left lung consistent with left lower lobe pneumonia. There is no demonstrated pleural abnormality. Normal size heart. Normal mediastinum and sho. Normal visualized pulmonary arteries. Normal visualized aortic arch and descending thoracic aorta. Normal visualized thoracic spine. Normal visualized ribs, clavicles, and shoulders. There is no demonstrated abnormality of the visualized soft tissue structures of the upper abdomen. RAD/Chest 1 View (Portable) IMPRESSION: Emphysema with a left lower lobe pneumonia. Electronically Signed: Boston Myers MD at 17:46 EDT ,
[2021-12-08 17:37] LABS: Absolute Lymphocyte Count 1.72 X10^3/uL (0.83-4.51); Absolute Neutrophil Count 7.9 X10^3/uL (2.0-7.7); Basophil# 0.08 X10^3/uL; Basophil% 0.7 % (0-1); Eosinophil# 0.44 X10^3/uL; Eosinophils% 3.8 % (0-5); Hematocrit 29.8 % (40-54); Lymphocyte # 1.72 X10^3/ul (0.83-4.51); Mean Corp Hgb Conc 30.2 g/dL (32-36); Mean Corpuscular Hgb 26.8 pg (27.0-32.0); Mean Corpuscular Volume 88.7 fL (80-94); Mean Platelet Vol. 9.9 fl (6.2-12.0); Monocyte# 1.03 X10^3/uL; NRBC Flagged by Analyzer 0 % (0-5); Neutrophil # 7.92 X10^3/uL (2.7-7.7); Neutrophil % 68.8 % (47-70); Platelet Count 352 K/mm3 (150-450); RBC Distribution Width CV 17.9 % (11.6-14.6); RBC Distribution Width SD 57.9 fl (35.1-43.9); Red Blood Count 3.36 M/mm3 (4.6-6.2); White Blood Count 11.5 K/mm3 (4.4-11.0)
--- NOTE | 2021-12-08 17:50 | CT_ITS ---
STUDY: CTA CHEST REASON FOR EXAM: Male, 71 years old. dyspnea, elevated d-dimer RADIATION DOSAGE (If Supplied By Facility): CTDIvol = ( 12.02 ) mGy, DLP = ( 539.22 ) mGycm TECHNIQUE: The examination was performed with the intravenous administration of IV 100mL [id number]-370. Post-processing of the angiographic images was performed, with multiplanar reformation and 3D reconstruction. Individualized dose optimization techniques were used for this CT. COMPARISON: 10/23/2021, chest x-ray earlier today FINDINGS: Status post median sternotomy. Normal enhancement of the main pulmonary artery and right and left pulmonary arteries. Normal enhancement of the bilateral peripheral pulmonary arteries. There is no demonstrated pulmonary embolism. Normal thoracic aorta and visualized great vessels. There is no demonstrated aortic dissection. Normal heart and pericardium. Normal mediastinum. Normal hilar regions. Bilateral diffuse cylindrical bronchiectasis. Bibasilar mucous plugging. The lungs are well expanded. Mild emphysema. 1 cm noncalcified nodule in the subpleural posterior left upper lobe the lungs on image 243 and correlation with PET CT scan is recommended. Small bilateral pleural effusions with bibasilar atelectasis. Normal chest wall structures. Normal osseous structures. Dense gallstones in the dependent portion the gallbladder. CT/CTA Chest W/WO Contrast IMPRESSION: 1. No CT evidence of pulmonary embolism. 2. Mild emphysema with a 1 cm noncalcified left upper lobe nodule and correlation with PET CT scan is recommended. If PET negative, follow-up CT is recommended in 6 months document stability. 3. Bilateral diffuse symmetrical bronchiectasis with bibasilar mucous plugging. 4. Small bilateral pleural effusions with bibasilar atelectasis. 5. Cholelithiasis per Electronically Signed: Boston Myers MD at 18:44 EDT ,
[2021-12-08 17:54] LABS: Anion Gap 7 (5-15); BUN 23 mg/dL (7-18); BUN/Creat Ratio 19.3 RATIO (10-20); Calcium,Total 9.1 mg/dL (8.5-10.1); Chloride 110 mmol/L (98-107); Creatinine, Serum 1.19 mg/dL (0.70-1.30); EST Glomerular Filtration Rate 64 mL/min (>60); Est Glom Filt Rate - Afr Amer 77 mL/min (>60); Estimated Creatinine Clearance 59.76 ml/min; Glucose 200 mg/dL (74-106); Sodium Level 143 mmol/L (136-145); Troponin-I HS 11 pg/mL (3.0-78.0)
[2021-12-08] MEDS: Ceftriaxone 1 GM/50 ML BAG IV (18:17)
--- NOTE | 2021-12-08 19:09 | HP.PCM.HOS_ITS ---
HPI - General General Date of Admission: 12/08/21 Date of Service: 12/08/21 Chief Complaint: Dyspnea, wheezing. 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/p IVC Filter placement, Former tobacco use, Hx COVID-19 PNA , Pulmonary Fibrosis, COPD w/ Chronic Hypoxic Respiratory Failure (3-4L NC), Anxiety and Depression, Chronic anemia/Fe deficiency anemia w/ Hx GI bleed w/ AVMs, recent admission 10/23/21-10/26/21 following evaluation and treatment for Acute on Chronic COPD Exacerbation secondary to Acute Rhinoviral infection, Acute GI bleed w/ Acute on Chronic anemia/Fe deficiency anemia discharged on PPI, z-pack, prednisone taper, sucralafate who now re-presents to the [facility] ED on 12/08/21 with history of worsening dyspnea with associated wheezing over the last 2 days noting that even on 5 L oxygenation is levels do not increase above 88% with recommendation for his PCP to present to the ED for evaluation with ongoing cough has been chronic since February secondary to having COVID at that time reportedly bringing up some white milky yellow sputum without fever or chills. He notes initially upon his recent discharge he did feel better and it was not until the last 2-3 days that he started to feel poorly. Work-up in the ED included T99.4, heart rate 90, BP 111/55, respiratory rate 20, 93% on 5 L nasal cannula, CBC with WC 11.5, hemoglobin 9.0 with most recent discharge hemoglobin 11/16/2021 10.2 and prior to this on 10/26/2021 9.0, MCV 88.7, platelet 352 with left shift, D-dimer 1.50, BMP with chloride 110, BUN/creat 23/1.19, glucose 200, troponin 11, BNP 191, chest x-ray with emphysema with left lower lobe pneumonia, CTPA with no evidence of pulmonary emboli, mild emphysema with a 1 cm noncalcified left upper lobe nodule, bilateral diffuse symmetrical bronchiectasis with bibasilar mucous plugging, small bilateral pleural effusions with bibasilar atelectasis, cholelithiasis, rapid COVID antigen negative, EKG with sinus rhythm with occasional PVC and PAC with no acute evidence of ischemia, blood culture x2 pending per ED. In the ED patient administered solumedrol 125 mg IV x 1, duoneb therapy, azithromycin IV and rocephin IV. [facility] Medical History (Updated 12/08/21 @ 19:[address] Margie Joy, DO) Acute respiratory failure with hypoxia Allergic rhinitis Arthritis Asthma Atherosclerosis of coronary artery of [place] heart without angina pectoris Bleeding tendency Cancer Chronic bronchitis Colon polyp COPD (chronic obstructive pulmonary disease) COVID-19 in immunocompromised patient Current use of insulin Diabetes DVT (deep venous thrombosis) (05/01/21) Essential hypertension FTT (failure to thrive) in adult Gastritis GI bleed (04/2021) High cholesterol History of basal cell carcinoma History of pilonidal cyst History of pulmonary embolus (PE) (04/30/21) History of stress test HTN (hypertension) Hyperglycemia Nicotine dependence, cigarettes, uncomplicated Non-Hodgkin lymphoma Obesity Physical debility Pneumonia Positive colorectal cancer screening using Cologuard test RA (rheumatoid arthritis) Rhinovirus Tobacco abuse Type 2 diabetes mellitus Ulcer 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 complications Home Medications cholecalciferol (vitamin D3) 25 mcg (1,000 unit) capsule 25 mcg PO DAILY vitamin 07/17/20 [History Last Taken 10/23/21] nitroglycerin 0.4 mg sublingual tablet (Nitrostat) 0.4 mg sublingual Q5M PRN chest pain #30 tabs 09/25/20 [Rx Last Taken Unknown] ferrous sulfate 325 mg (65 mg iron) tablet 325 mg PO BID iron supplement 04/26/21 [History Last Taken 10/23/21] ipratropium 0.5 mg-albuterol 3 mg (2.5 mg base)/3 mL nebulization soln 3 ml inhalation Q4H PRN PRN SOB &/OR WHEEZING #180 mL 06/18/21 [Rx Last Taken ] escitalopram oxalate 10 mg tablet 10 mg PO DAILY mood 30 days #90 tabs 06/21/21 [Rx Last Taken 10/23/21] mirtazapine 15 mg tablet (Remeron) 7.5 mg PO QHS bm 30 days #90 tabs 06/21/21 [Rx Last Taken 10/22/21] potassium chloride 10 mEq tablet,extended release(part/cryst) 10 meq PO DAILY@0800 vitamin 08/06/21 [History Last Taken 10/23/21] atorvastatin 40 mg tablet 20 mg PO QHS cholesterol 10/09/21 [History Last Taken 10/22/21] metoprolol tartrate 25 mg tablet 12.5 mg PO BID BP 10/09/21 [History Last Taken 10/23/21] pantoprazole 40 mg tablet,delayed release 40 mg PO BID 30 days #60 tabs 10/26/21 [Rx Last Taken Unknown] sucralfate 1 gram tablet 1 g PO 4X/DAY 30 days #120 tabs 10/26/21 [Rx Last Taken Unknown] budesonide 1 mg/2 mL suspension for nebulization 1 mg (2 mL) inhalation BID #60 mL 11/02/21 [Rx Last Taken Unknown] Allergy/AdvReac Type Severity Reaction Status Date / Time levofloxacin [From Levaquin] AdvReac Intermediate diarrhea, Verified 12/08/21 17:06 dizziness, GI upset, weakness Family History Father Arthritis Bleeding disorder Hypertension Kidney disease Cancer Skin Anemia blood clots Emphysema lung Mother Colon cancer Cancer Lung Cancer Diabetes Brother Thyroid disorder Surgical History H/O cardiac catheterization History of coronary artery stent placement (10/22/13) History of excision of pilonidal cyst History of heart artery stent History of thymectomy Hx of lymph node excision Presence of IVC filter (04/2021) Status post cardiac surgery Social History household members: spouse Smoking Status: Former smoker second hand exposure: Yes quit status: considering quitting alcohol intake: current alcohol intake frequency: holidays/special occasions only substance use type: does not use caffeine: Yes Type: coffee Number of servings: 3 what type of physical activity do you participate in: none frequency: does not exercise seatbelt use: always ROS ROS Narrative Admission Review of Systems: CONSTITUTIONAL: No weight loss, fever, chills, + weakness or fatigue. HEENT: Eyes: No visual loss, blurred vision, double vision or yellow sclerae. Ears, Nose, Throat: No hearing loss, sneezing, congestion, runny nose or sore throat. SKIN: No rash or itching, lesions, wounds. CARDIOVASCULAR: + Edema. No chest pain, chest pressure or chest discomfort, palpitations, orthopnea, syncopal events. RESPIRATORY: + shortness of breath, cough with increased sputum, wheezing, No hemoptysis. GASTROINTESTINAL: No anorexia, nausea, vomiting or diarrhea, abdominal pain, melena, BRBPR. GENITOURINARY: No dysuria, frequency, urgency or retention. NEUROLOGICAL: No headache, dizziness, syncope, paralysis, ataxia, numbness or tingling in the extremities, focal weakness, change in bowel or bladder control, seizure. MUSCULOSKELETAL: + muscle, back pain, joint pain or stiffness. HEMATOLOGIC: + anemia, bleeding or bruising. LYMPHATICS: No enlarged nodes. No history of splenectomy. PSYCHIATRIC: + history of depression or anxiety. ENDOCRINOLOGIC: No reports of sweating, cold or heat intolerance. No polyuria or polydipsia. ALLERGIES: No history of asthma, hives, eczema or rhinitis. Vital Signs Vital Signs Vital Signs: 12/08/21 17:06 12/08/21 17:09 12/08/21 17:24 Temperature 98.6 F Temperature Source Oral Pulse Rate 91 95 89 Respiratory Rate 18 16 20 H Respiratory Effort Respiratory Depth Respiratory Pattern Blood Pressure 159/78 H 159/78 H Blood Pressure Mean 105 105 Pulse Ox 96 93 Oxygen Delivery Method Nasal Cannula Nasal Cannula Oxygen Flow Rate (L/min) 5 5 12/08/21 17:24 12/08/21 17:08 12/08/21 17:32 Temperature 98.6 F Temperature Source Oral Pulse Rate 87 Respiratory Rate 14 Respiratory Effort Normal Non-Labored Respiratory Depth Normal Respiratory Pattern Normal Blood Pressure 101/87 H Blood Pressure Mean 91 Pulse Ox 95 93 Oxygen Delivery Method Nasal Cannula Nasal Cannula Nasal Cannula Oxygen Flow Rate (L/min) 5 5 5 12/08/21 18:08 12/08/21 18:57 Temperature 99.1 F 99.4 F H Temperature Source Oral Oral Pulse Rate 93 90 Respiratory Rate 16 20 H Respiratory Effort Respiratory Depth Respiratory Pattern Blood Pressure 140/58 H 111/55 L Blood Pressure Mean 85 73 Pulse Ox 98 93 Oxygen Delivery Method Nasal Cannula Nasal Cannula Oxygen Flow Rate (L/min) 5 5 Weight Weight: 192 lb 14.472 oz Body Mass Index (BMI) 26.9 Physical Exam Narrative Physical Examination: General: Awake, alert, oriented x 3 and cooperative, seated upright in the ED bed, fatigued and ill-appearing, no evidence of any respiratory distress. Skin: Normal color, normal turgor, no icterus, no cyanosis except occasional staged ecchymoses. HEENT: AT/NC, EOMI, PERRLA, mildly dry MM, no carotid bruits or JVD noted. Lungs: Significant, greater bases, mildly increased respiratory rate but no evidence of any distress, occasional end expiratory wheeze, no rhonchi or rales. Heart: Mildly tachycardic with regular rhythm; no gallop, rub audible. Abdomen: Soft, overweight, NTTP, ND, distant normal BS, no HSM. Extremities: No cyanosis, no clubbing, mild bilateral pedal to distal hickman edema. Neurological: Patient awake, alert, oriented as noted, cognitive function intact; pupils equally reactive to light and accommodation, cranial nerves II- XII grossly normal, moving all 4 extremities, no focal deficits, strength moder ately to severely globally decreased secondary to acute presentation. Psychiatric: Affect appears fatigued, ill-appearing, no evidence of any respiratory distress, no acute evidence of depressive or anxiety feelings. Results Lab / Micro Data Result Diagrams: 12/08/21 17:20 12/08/21 17:20 Labs: Laboratory Results - last 24 hr 12/08/21 17:20: WBC 11.5 H, RBC 3.36 L, Hgb 9.0 L, Hct 29.8 L, MCV 88.7, MCH 26.8 L, MCHC 30.2 L, RDW Std Deviation 57.9 H, RDW Coeff of Rafael 17.9 H, Plt Count 352, MPV 9.9, Immature Gran % (Auto) 2.700 H, Neut % (Auto) 68.8, Lymph % (Auto) 15.0 L, [place] % (Auto) 9.0, Eos % (Auto) 3.8, Baso % (Auto) 0.7, Absolute Neuts (auto) 7.9 H, Absolute Lymphs (auto) 1.72, Nucleated RBC % 0 12/08/21 17:20: D-Dimer Quant (PE/DVT) 1.50 H* 12/08/21 17:20: Sodium 143, Potassium 4.0, Chloride 110 H, Carbon Dioxide 26.0, Anion Gap 7, BUN 23 H, Creatinine 1.19, Estim Creat Clear Calc 59.76, Est GFR (MDRD) Af Amer 77, Est GFR (MDRD) Non-Af 64, BUN/Creatinine Ratio 19.3, Glucose 200 H, Calcium 9.1, Troponin I High Sens 11 12/08/21 17:20: B-Natriuretic Peptide 191.0 H Micro: Microbiology 12/08/21 17:20 Nasal Secretion SARS-CoV-2 & FLU Antigen (Rapid) - Final Radiology Impression Chest X-Ray 12/08/21 17:35 IMPRESSION: Emphysema with a left lower lobe pneumonia. Electronically Signed: Boston Myers MD at 17:46 EDT Reading Location ID and State: [employer] , Service support , Chest CTA 12/08/21 17:50 IMPRESSION: 1. No CT evidence of pulmonary embolism. 2. Mild emphysema with a 1 cm noncalcified left upper lobe nodule and correlation with PET CT scan is recommended. If PET negative, follow-up CT is recommended in 6 months document stability. 3. Bilateral diffuse symmetrical bronchiectasis with bibasilar mucous plugging. 4. Small bilateral pleural effusions with bibasilar atelectasis. 5. Cholelithiasis per Electronically Signed: Boston Myers MD at 18:44 EDT Reading Location ID and State: [id number] / [employer] Tel , Service support , Assessment & Plan Assessment/Plan (1) Pneumonia: PLAN: Plan The patient is a 71 y/o M w/ PMHx: Rheumatoid arthritits previously on rituximab, Non-Hodgkin's lymphoma in remission, Diabetes mellitus type II, HTN, HLD, CAD s/p PCI, Hx VTE s/p IVC Filter placement, Former tobacco use, Hx COVID- 19 PNA, Pulmonary Fibrosis, COPD w/ Chronic Hypoxic Respiratory Failure (3-4L NC), Anxiety and Depression, Chronic anemia/Fe deficiency anemia w/ Hx GI bleed w/ AVMs, recent admission 10/23/21-10/26/21 following evaluation and treatment for Acute on Chronic COPD Exacerbation secondary to Acute Rhinoviral infection, Acute GI bleed w/ Acute on Chronic anemia/Fe deficiency anemia discharged on PPI, z-pack, prednisone taper, sucralafate who now re-presents to the [facility] ED on 12/08/21 with history of worsening dyspnea over the last 2 days. #1.? Acute on Chronic Hypoxia secondary to Acute on Chronic COPD Exacerbation and Clinical Pneumonia complicated by underlying Pulmonary fibrosis associated w/ COVID-19: Will admit to [facility], maintain on oxygen with wean as tolerated to his home oxygen supplementation, continue ATC budeosonide therapy, PRN albuterol, reinitiate IV Solu-Medrol cautiously given recent GI bleed, maintain on IV Rocephin and Azithromycin following review of prior Sputum Cx, HOB, IS parameters w/ pending sputum cultures, request full respiratory viral panel and urine antigens. Bld cx x 2 obtained in the ED. #2. Incidental 1 cm noncalcified left upper lobe nodule: Noted on CT scan upon presentation, recommend outpatient reimaging/follow-up. #3. Recent Acute GI bleed w/ Acute on Chronic anemia/Fe deficiency anemia w/ AVMs: Recent discharge as noted with concurrent acute GI bleed, admission hemoglobin 9.0, most recent prior to this 11/16/21 Hgb 10.2 and prior to this 10/26/2021 9.0, will continue high-dose PPI, sucralfate, defer any chemoprophylaxis given recent bleeding and trend CBC. Continue iron supple mentation. #4.? Hx VTE, DVT and BL PE: Most recent event 07/2021 BL PE, prior DVT, history of recurrent GI bleeds w/ most recent his prior admission, s/p IVCF placement, following w/ Dr. Huerta. #5.? Diabetes mellitus type II: Most recent hemoglobin A1c 10/25/2021 6.5%, will maintain on ADA diet, accu checks with ISS. #6.? CAD: s/p LAD, RCA (2001) and L circumflex (2013), continue metoprolol, statin home regimen. #7.? Hypertension: Continue home metoprolol regimen, PRN hydralazine. #8.? Hyperlipidemia: Continue home statin therapy. #9.? History Tobacco Abuse: Encouraged continued cessation. #10.? History of non-Hodgkin's lymphoma: Considered in remission, encourage continued outpatient follow-up with oncology as previously arranged or needed. #11.? Anxiety and depression: We will continue patient home escitalopram and mirtazapine regimen. #12.? DVT prophylaxis: SCDs, hold chemoprophylaxis given recent admission with GI bleed. #13.? CODE status: Patient HCPOA is significant and living will is currently in place. Discussed CODE status at length including difference between FULL code, DNR-CCA and DNR-CC status. Following discussions about the differences in these status, requested continuation of DNR CCA, no intubation. Advanced Care Planning Face to Face Time: 16 minutes. Charges/Coding Visit Charges Inpatient E&M: 67117 Init Hosp L3 Procedures Hospitalists Procedures: 38314 Advncd Care Plan 30 Min
[2021-12-08] MEDS: Insulin Lispro 100 UNIT/ML INSULN.PEN SC (21:01)
[2021-12-08] MEDS: 0.9% Saline Lock 10 ML Syringe IV (21:10)
[2021-12-08] MEDS: Pantoprazole Sodium 40 MG Tablet PO (21:11)
[2021-12-08] MEDS: Metoprolol Tartrate 25 MG Tablet 12.5 MG PO (21:11)
[2021-12-08] MEDS: Atorvastatin Calcium 20 MG Tablet PO (21:11)
[2021-12-08] MEDS: Mirtazapine 15 MG Tablet 7.5 MG PO (21:11)
[2021-12-08] MEDS: guaiFENesin 1,200 MG Tablet 1200 MG PO (21:11)
[2021-12-08 21:21] LABS: Bedside Glucose 247 mg/dL (74-106)
--- NOTE | 2021-12-08 21:57 | NURSING ---
upon admission, pt stated he would not take glucerna if offered. consult made for dietitian due to weight loss.
[2021-12-08 23:21] LABS: M R Staph aureus DNA By PCR Negative (Negative); Probe Check PASS; Specimen Processing Control PASS
[2021-12-09] VITALS (14 sets, daily range): BP systolic 120–134; BP diastolic 58–78; PULSE 56–69; RESP 18–20; TEMP 36.3–36.7; O2SAT 97–99
[2021-12-09 06:33] LABS: Absolute Lymphocyte Count 0.97 X10^3/uL (0.83-4.51); Absolute Neutrophil Count 7.3 X10^3/uL (2.0-7.7); Basophil# 0.02 X10^3/uL; Basophil% 0.2 % (0-1); Eosinophil# 0.01 X10^3/uL; Eosinophils% 0.1 % (0-5); Hematocrit 23.1 % (40-54); Hemoglobin 7.4 g/dL (13.0-16.5); Lymphocyte # 0.97 X10^3/ul (0.83-4.51); Lymphocyte % 11.3 % (19-41); Mean Corpuscular Hgb 27.6 pg (27.0-32.0); Mean Corpuscular Volume 86.2 fL (80-94); Mean Platelet Vol. 10.7 fl (6.2-12.0); Monocyte% 1.2 % (0-10); NRBC Flagged by Analyzer 0 % (0-5); Neutrophil # 7.31 X10^3/uL (2.7-7.7); Neutrophil % 85.3 % (47-70); Platelet Count 255 K/mm3 (150-450); RBC Distribution Width CV 17.6 % (11.6-14.6); RBC Distribution Width SD 55.2 fl (35.1-43.9); Red Blood Count 2.68 M/mm3 (4.6-6.2); White Blood Count 8.6 K/mm3 (4.4-11.0)
[2021-12-09] MEDS: Insulin Lispro 100 UNIT/ML INSULN.PEN SC ×4 (06:54→21:33)
[2021-12-09] MEDS: 0.9% Saline Lock 10 ML Syringe IV (06:54)
[2021-12-09 07:07] LABS: ALB/GLOB Ratio 0.8 RATIO (0.9-2.4); AST(SGOT) 10 U/L (15-37); Alanine Aminotransfer ALT/SGPT 14 U/L (16-61); Albumin, Serum 2.3 g/dL (3.2-5.0); Alkaline Phosphatase 74 U/L (45-117); Anion Gap 7 (5-15); BUN 25 mg/dL (7-18); BUN/Creat Ratio 22.5 RATIO (10-20); Calcium,Total 8.4 mg/dL (8.5-10.1); Chloride 107 mmol/L (98-107); Creatinine, Serum 1.11 mg/dL (0.70-1.30); EST Glomerular Filtration Rate 69 mL/min (>60); Est Glom Filt Rate - Afr Amer 84 mL/min (>60); Estimated Creatinine Clearance 64.07 ml/min; Globulin 2.9 g/dL (2.2-4.2); Glucose 380 mg/dL (74-106); Potassium 4.7 mmol/L (3.5-5.1); Protein, Total 5.2 g/dL (6.4-8.2); Sodium Level 139 mmol/L (136-145)
[2021-12-09 07:20] LABS: Bedside Glucose 394 mg/dL (74-106)
[2021-12-09] MEDS: Metoprolol Tartrate 25 MG Tablet 12.5 MG PO ×2 (07:48→21:34)
[2021-12-09] MEDS: Pantoprazole Sodium 40 MG Tablet PO (07:50)
[2021-12-09] MEDS: Escitalopram Oxalate 10 MG Tablet PO (07:50)
[2021-12-09] MEDS: Cholecalciferol (VIT D3) 25 MCG TABLET (1,000 UNITS) PO (07:51)
[2021-12-09] MEDS: Potassium Chloride Oral Tablet 10 MEQ PO (07:51)
[2021-12-09] MEDS: guaiFENesin 1,200 MG Tablet 1200 MG PO ×2 (07:51→21:35)
--- NOTE | 2021-12-09 08:54 | PCM.PN.HOSP ---
Subjective Subjective Follow-up on acute rhinovirus COPD exacerbation/acute on chronic GI bleed: Patient was seen and examined. He is on 3 L of oxygen. He denied any hematochezia. He later on had a bowel movement and stools were dark. Denies any dizziness or palpitation. Objective Data Objective Data Vital Signs: Vital Signs Temp Pulse Resp BP Pulse Ox O2 Del Method O2 Flow Rate 97.3 F L 63 20 H 123/78 H 97 Nasal Cannula 4 12/09/21 04:21 12/09/21 07:48 12/09/21 04:21 12/09/21 04:21 12/09/21 07:37 12/09/21 07:37 12/09/21 07:37 Oxygen Flow Rate (L/min) 4 Oxygen Delivery Method Nasal Cannula Weight: 85.3 kg Body Mass Index (BMI) 26.0 Intake & Output: Intake and Output for Last 24 Hours 12/07/21 12/08/21 12/09/21 23:59 23:59 23:59 Intake Total 305 / 305 Output Total 575 / 575 Balance 305 / 105 -575 / -575 Lab / Micro Data Result Diagrams: 12/09/21 10:10 12/09/21 05:28 Labs: Laboratory Results - last 24 hr 12/08/21 17:20: WBC 11.5 H, RBC 3.36 L, Hgb 9.0 L, Hct 29.8 L, MCV 88.7, MCH 26.8 L, MCHC 30.2 L, RDW Std Deviation 57.9 H, RDW Coeff of Rafael 17.9 H, Plt Count 352, MPV 9.9, Immature Gran % (Auto) 2.700 H, Neut % (Auto) 68.8, Lymph % (Auto) 15.0 L, [place] % (Auto) 9.0, Eos % (Auto) 3.8, Baso % (Auto) 0.7, Absolute Neuts (auto) 7.9 H, Absolute Lymphs (auto) 1.72, Nucleated RBC % 0 12/08/21 17:20: D-Dimer Quant (PE/DVT) 1.50 H* 12/08/21 17:20: Sodium 143, Potassium 4.0, Chloride 110 H, Carbon Dioxide 26.0, Anion Gap 7, BUN 23 H, Creatinine 1.19, Estim Creat Clear Calc 59.76, Est GFR (MDRD) Af Amer 77, Est GFR (MDRD) Non-Af 64, BUN/Creatinine Ratio 19.3, Glucose 200 H, Calcium 9.1, Troponin I High Sens 11 12/08/21 17:20: B-Natriuretic Peptide 191.0 H 12/08/21 20:45: MRSA (PCR) Negative 12/08/21 20:48: POC Glucose 247 H 12/09/21 05:28: WBC 8.6, RBC 2.68 L, Hgb 7.4 L, Hct 23.1 L, MCV 86.2, MCH 27.6, MCHC 32.0 D, RDW Std Deviation 55.2 H, RDW Coeff of Rafael 17.6 H, Plt Count 255, MPV 10.7, Immature Gran % (Auto) 1.900 H, Neut % (Auto) 85.3 H, Lymph % (Auto) 11.3 L, [place] % (Auto) 1.2, Eos % (Auto) 0.1, Baso % (Auto) 0.2, Absolute Neuts (auto) 7.3, Absolute Lymphs (auto) 0.97, Nucleated RBC % 0 12/09/21 05:28: Sodium 139, Potassium 4.7, Chloride 107, Carbon Dioxide 25.0, Anion Gap 7, BUN 25 H, Creatinine 1.11, Estim Creat Clear Calc 64.07, Est GFR (MDRD) Af Amer 84, Est GFR (MDRD) Non-Af 69, BUN/Creatinine Ratio 22.5 H, Glucose 380 H, Calcium 8.4 L, Total Bilirubin 0.30, AST 10 L, ALT 14 L, Alkaline Phosphatase 74, Total Protein 5.2 L, Albumin 2.3 L, Globulin 2.9, Albumin/Globulin Ratio 0.8 L 12/09/21 06:53: POC Glucose 394 H Micro: Microbiology 12/08/21 20:32 Mucosa - Nasopharyngeal Respiratory Panel (PCR) - Final Rhinovirus 12/08/21 17:20 Nasal Secretion SARS-CoV-2 & FLU Antigen (Rapid) - Final Radiography Diagnostic Testing: Radiology Impression Chest X-Ray 12/08/21 17:35 IMPRESSION: Emphysema with a left lower lobe pneumonia. Electronically Signed: Boston Myers MD at 17:46 EDT , Chest CTA 12/08/21 17:50 IMPRESSION: 1. No CT evidence of pulmonary embolism. 2. Mild emphysema with a 1 cm noncalcified left upper lobe nodule and correlation with PET CT scan is recommended. If PET negative, follow-up CT is recommended in 6 months document stability. 3. Bilateral diffuse symmetrical bronchiectasis with bibasilar mucous plugging. 4. Small bilateral pleural effusions with bibasilar atelectasis. 5. Cholelithiasis per Electronically Signed: Boston Myers MD at 18:44 EDT , Physical Exam Narrative Physical exam: General: Alert, Oriented x3, Cooperative, appears comfortable, on 2 L of oxygen HEENT: Atraumatic Oral: Moist Mucosa Neck: Supple Lungs: Diminished to auscultation Cardiovascular: HS I+II, regular, no murmurs Abdomen: Bowel Sounds Present, Soft, Non Tender Extremities: No edema Skin: No rashes, No breakdown Neurological: Grossly intact Psych/Mental Status: Appropriate Assessment & Plan Assessment/Plan (1) Iron deficiency anemia: QUALIFIERS: Iron deficiency anemia type: unspecified iron deficiency Qualified Code(s): D50.9 - Iron deficiency anemia, unspecified (2) COPD exacerbation: PLAN: Plan 1. Acute rhinovirus COPD exacerbation/acute pneumonia, improving. Patient with chronic upper respiratory failure from COPD -3 L of oxygen COVID-19 rapid antigen test is negative, sputum cultures growing normal respiratory domenico, respiratory panel has rhinovirus Admitting chest x-ray showed emphysema with a left lower lobe pneumonia Admitting CTA of the chest was negative for PE, showed bilateral diffuse symmetric bronchiectasis with bibasilar mucous plugging, atelectasis, 1 cm noncalcified left upper lobe nodule On 3 L of oxygen now Continue with breathing treatment, IV steroids, encourage use of incentive spirometer Continue IV ceftriaxone and azithromycin Wean off oxygen for SPO2 more than 94% 2. Acute on chronic GI bleed, history of gastritis and AVMs of the duodenum and ascending colon/cecum EGD done on 10/25/2021 showed red blood in the gastric fundus and the cardia Colonoscopy done on 05/02/2021 showed 3 medium sized localized angiodysplastic lesions in the ascending colon and cecum Friable gastric mucosa treated with bipolar cautery 3 nonbleeding angiodysplastic lesions in the duodenum, treated with monopolar probe We will switch from oral PPI to IV PPI twice daily, add sucralfate Stop Lexapro. Start clear liquid diet GI consult 3. Acute blood loss anemia, iron deficiency anemia secondary to #2 Drop in hemoglobin from 9.0 to 7.4 this morning We will trend H&H, type and screen Will transfuse for hemoglobin 7.0 Continue on oral iron 4. Type II DM, diet controlled, last HbA1c 6.5 (10/25/21) Continue with insulin sliding scale blood glucose checks in anticipation of hyperglycemia from steroid use 5. CAD status post stents, continue on statin, metoprolol, nitro prn Off aspirin 6. History of PE/DVTs, status post IVC filter, stable 7. Anxiety/depression, continue on Remeron 8. Lung nodule, seen on CT of the chest, outpatient follow-up with PET scan recommended 9. DVT prophylaxis?SCDs Charges/Coding Visit Charges Inpatient E&M: 03343 Subs Hosp L3
[2021-12-09 10:24] LABS: Hematocrit 27.9 % (40-54); Hemoglobin 8.5 g/dL (13.0-16.5)
[2021-12-09] MEDS: Sucralfate 1 GM Tablet PO ×3 (11:25→21:33)
[2021-12-09] MEDS: Ferrous Sulfate 325 MG Tablet PO ×2 (11:26→16:22)
[2021-12-09 12:05] LABS: Bedside Glucose 410 mg/dL (74-106)
[2021-12-09 16:07] LABS: Hematocrit 23.4 % (40-54); Hemoglobin 7.2 g/dL (13.0-16.5)
[2021-12-09 16:50] LABS: Bedside Glucose 351 mg/dL (74-106)
[2021-12-09] MEDS: Insulin Lispro 100 UNIT/ML INSULN.PEN 10 UNIT SC (17:37)
[2021-12-09] MEDS: Insulin Glargine-YFGN 100 UNIT/ML Pen 10 UNIT SC (21:33)
[2021-12-09] MEDS: Atorvastatin Calcium 20 MG Tablet PO (21:35)
[2021-12-09] MEDS: Mirtazapine 15 MG Tablet 7.5 MG PO (21:35)
[2021-12-09] MEDS: Ceftriaxone 1 GM/50 ML BAG IV (21:57)
[2021-12-09 22:15] LABS: Bedside Glucose 393 mg/dL (74-106)
--- NOTE | 2021-12-09 23:00 | CON.PCM_ITS ---
Assessment & Plan Assessment/Plan (1) Iron deficiency anemia: QUALIFIERS: Iron deficiency anemia type: unspecified iron deficiency Qualified Code(s): D50.9 - Iron deficiency anemia, unspecified PLAN: He will undergo evaluation of his upper GI tract. The differential diagnosis does include angiodysplastic lesions, steroid and NSAID induced gastro janay or gastritis, peptic ulcer disease, erosive esophagitis. He was explained alternatives, risk, benefits including outstanding bleeding, infection, sepsis, perforation, need for emergency to . He will have an ASA of 3. HPI Consult Data Date of Consult: 12/09/21 HPI Narrative Reason for Consultation: GI bleed HPI Narrative: SAL ALONZO, is a71 M who presents from his office with worsening shortness of breath.? Patient does have a history of COPD and is on 3 to 4 L via nasal cannula oxygen chronically.? Patient denies any fevers or chills at home. Work-up in the emergency room included a chest x-ray which showed no evidence of acute disease, CBC was abnormal for hemoglobin of 6.6, chemistry profile was remarkable for a glucose of 144 and a BUN of 22.? Patient's rapid COVID test was negative, patient's influenza test was negative. Patient will be admitted to [facility] 3, I will place him on IV Solu-Medrol, programmed aerosol treatments, IV Zithromax, and order IV Venofer (patient was supposed to get this given as an outpatient due to chronic anemia).? Patient is being seen by Dr. Zapata as an outpatient. I saw the patient several months ago for iron deficiency anemia.? 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 At that time his ferritin level is very low at 17 and his hemoglobin was 6.4.? His hemoglobin had gone all way up to 9.4 but over the last 6 weeks has been trending back down.? I was consulted for management of his anemia. His last upper endoscopy did show bleeding in the gastric cardia secondary to very friable mucosa from steroid therapy. [facility] Medical History (Updated 12/09/21 @ 11:[address] Suze Rosas MD) Acute respiratory failure with hypoxia Allergic rhinitis Arthritis Asthma Atherosclerosis of coronary artery of [place] heart without angina pectoris Bleeding tendency Cancer Chronic bronchitis Colon polyp COPD (chronic obstructive pulmonary disease) COVID-19 in immunocompromised patient Diabetes DVT (deep venous thrombosis) (05/01/21) Essential hypertension Former smoker FTT (failure to thrive) in adult Gastritis GI bleed (04/2021) High cholesterol History of basal cell carcinoma History of pilonidal cyst History of pulmonary embolus (PE) (04/30/21) History of stress test HTN (hypertension) Hyperglycemia Nicotine dependence, cigarettes, uncomplicated Non-Hodgkin lymphoma Obesity On home oxygen therapy Physical debility Pneumonia Positive colorectal cancer screening using Cologuard test RA (rheumatoid arthritis) Rhinovirus Tobacco abuse Type 2 diabetes mellitus Ulcer 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 complications Home Medications cholecalciferol (vitamin D3) 25 mcg (1,000 unit) capsule 25 mcg PO DAILY vitamin 07/17/20 [History Last Taken 12/08/21] nitroglycerin 0.4 mg sublingual tablet (Nitrostat) 0.4 mg sublingual Q5M PRN chest pain #30 tabs 09/25/20 [Rx Last Taken Unknown] ferrous sulfate 325 mg (65 mg iron) tablet 325 mg PO BID iron supplement 05/15 [History Last Taken 12/08/21] ipratropium 0.5 mg-albuterol 3 mg (2.5 mg base)/3 mL nebulization soln 3 ml inhalation Q4H PRN PRN SOB &/OR WHEEZING #180 mL 06/18/21 [Rx Last Taken 10/23/21] escitalopram oxalate 10 mg tablet 10 mg PO DAILY mood 30 days #90 tabs 06/21/21 [Rx Last Taken 12/08/21] potassium chloride 10 mEq tablet,extended release(part/cryst) 10 meq PO DAILY@0800 vitamin 08/06/21 [History Last Taken 12/08/21] atorvastatin 40 mg tablet 20 mg PO QHS cholesterol 10/09/21 [History Last Taken 12/07/21] metoprolol tartrate 25 mg tablet 12.5 mg PO BID BP 10/09/21 [History Last Taken 12/08/21] budesonide 1 mg/2 mL suspension for nebulization 1 mg (2 mL) inhalation BID #60 mL 11/02/21 [Rx Last Taken Unknown] mirtazapine 15 mg tablet (Remeron) 7.5 mg PO QHS sleep 12/08/21 [History Last Taken 12/07/21] pantoprazole 40 mg tablet,delayed release 40 mg PO BID reflux 12/08/21 [History Last Taken 12/08/21] Allergy/AdvReac Type Severity Reaction Status Date / Time levofloxacin [From Levaquin] AdvReac Intermediate diarrhea, Verified 12/08/21 17:06 dizziness, GI upset, weakness Family History Father Arthritis Bleeding disorder Hypertension Kidney disease Cancer Skin Anemia blood clots Emphysema lung Mother Colon cancer Cancer Lung Cancer Diabetes Brother Thyroid disorder Surgical History H/O cardiac catheterization History of coronary artery stent placement (10/22/13) History of excision of pilonidal cyst History of heart artery stent History of thymectomy Hx of lymph node excision Presence of IVC filter (04/2021) Status post cardiac surgery Social History household members: spouse Smoking Status: Former smoker second hand exposure: Yes quit status: considering quitting alcohol intake: current alcohol intake frequency: holidays/special occasions only substance use type: does not use caffeine: Yes Type: coffee Number of servings: 3 what type of physical activity do you participate in: none frequency: does not exercise seatbelt use: always ROS ROS Narrative Admission Review of Systems: CONSTITUTIONAL: No weight loss, fever, chills, + weakness or fatigue. HEENT: Eyes: No visual loss, blurred vision, double vision or yellow sclerae. Ears, Nose, Throat: No hearing loss, sneezing, congestion, runny nose or sore throat. SKIN: No rash or itching, lesions, wounds. CARDIOVASCULAR: + Edema. No chest pain, chest pressure or chest discomfort, palpitations, orthopnea, syncopal events. RESPIRATORY: + shortness of breath, cough with increased sputum, wheezing, No hemoptysis. GASTROINTESTINAL: No anorexia, nausea, vomiting or diarrhea, abdominal pain, melena, BRBPR. GENITOURINARY: No dysuria, frequency, urgency or retention. NEUROLOGICAL: No headache, dizziness, syncope, paralysis, ataxia, numbness or tingling in the extremities, focal weakness, change in bowel or bladder control, seizure. MUSCULOSKELETAL: + muscle, back pain, joint pain or stiffness. HEMATOLOGIC: + anemia, bleeding or bruising. LYMPHATICS: No enlarged nodes. No history of splenectomy. PSYCHIATRIC: + history of depression or anxiety. ENDOCRINOLOGIC: No reports of sweating, cold or heat intolerance. No polyuria or polydipsia. ALLERGIES: No history of asthma, hives, eczema or rhinitis. Physical Exam Narrative GENERAL: cooperative HEENT: Atraumatic; normocephalic EYES; Anicteric, Normal Conjunctiva NECK; supple, normal thyroid, RESPIRATORY: Diminished to auscultation CARDIOVASCULAR: Regular S1 S2, GI: soft, normoactive bowel sounds, : No Renal angle tenderness; EXTREMITIES: No edema, no clubbing, MUSCULOSKELETAL: no muscle wasting NEURO: Awake; no lateralizing signs. SKIN: No Rash PSYCH; Flat affect Lab / Micro Data Result Diagrams: 12/10/21 07:05 12/10/21 07:05 Labs: Laboratory Results - last 24 hr 12/09/21 10:10: Crossmatch See Detail 12/09/21 11:21: POC Glucose 410 H 12/09/21 16:00: Hgb 7.2 L, Hct 23.4 L 12/09/21 16:20: POC Glucose 351 H 12/09/21 21:30: POC Glucose 393 H 12/09/21 22:35: Hgb 7.0 L, Hct 21.9 L 12/10/21 06:40: POC Glucose 296 H 12/10/21 07:05: WBC 13.9 H, RBC 2.94 L, Hgb 8.3 L, Hct 26.0 L, MCV 88.4, MCH 28.2, MCHC 31.9 L, RDW Std Deviation 56.4 H, RDW Coeff of Rafael 17.6 H, Plt Count 268, MPV 10.6, Immature Gran % (Auto) 1.900 H, Neut % (Auto) 84.6 H, Lymph % (Auto) 7.3 L, [place] % (Auto) 6.0, Eos % (Auto) 0.0, Baso % (Auto) 0.2, Absolute Neuts (auto) 11.8 H, Absolute Lymphs (auto) 1.02, Nucleated RBC % 0.1 12/10/21 07:05: Sodium 139, Potassium 4.5, Chloride 106, Carbon Dioxide 26.0, Anion Gap 7, BUN 28 H, Creatinine 1.17, Estim Creat Clear Calc 60.78, Est GFR (MDRD) Af Amer 79, Est GFR (MDRD) Non-Af 65, BUN/Creatinine Ratio 23.9 H, Glucose 281 H, Calcium 8.5, Total Bilirubin 0.40, AST 7 L, ALT 14 L, Alkaline Phosphatase 68, Total Protein 5.3 L, Albumin 2.5 L, Globulin 2.8, Albumin/Globulin Ratio 0.9 12/10/21 07:05: Hemoglobin A1c 8.5 H 12/10/21 09:37: PT 14.8, INR 1.2, APTT 24.6 Micro: Microbiology 12/08/21 19:30 Sputum, Expectorated/Coughed Gram Stain - Final 12/08/21 19:30 Sputum, Expectorated/Coughed Respiratory Culture - Final Mixed normal respiratory domenico. No Streptococcus pneumoniae, beta-hemolytic Streptococcus or Staphylococcus aureus isolated. 12/08/21 14:05 Urine, Random Legionella Antigen - Final 12/08/21 14:05 Urine, Random Streptococcus pneumoniae Antigen (M - Final 12/08/21 20:32 Mucosa - Nasopharyngeal Respiratory Panel (PCR) - Final Rhinovirus 12/09/21 10:15 Stool Stool Occult Blood ([facility]) - Final Occult Blood Positive Charges/Coding Visit Charges Inpatient E&M: 44973 Init Hosp L2
[2021-12-10] VITALS (23 sets, daily range): BP systolic 88–136; BP diastolic 41–74; PULSE 53–72; RESP 16–18; TEMP 35.9–36.7; O2SAT 94–99; BMI 26.5
[2021-12-10] LABS: Hematocrit 21.9 % (40-54)
--- NOTE | 2021-12-10 01:55 | PCM.HOSP.N ---
Hospitalist Note Repeat HH 7, will order 1 u PRBC with planned repeat CBC in AM.
[2021-12-10] MEDS: Insulin Lispro 100 UNIT/ML INSULN.PEN SC ×4 (06:42→22:03)
[2021-12-10] MEDS: Sucralfate 1 GM Tablet PO ×3 (06:43→18:04)
[2021-12-10 07:05] LABS: Bedside Glucose 296 mg/dL (74-106)
[2021-12-10 07:30] LABS: Absolute Lymphocyte Count 1.02 X10^3/uL (0.83-4.51); Absolute Neutrophil Count 11.8 X10^3/uL (2.0-7.7); Basophil# 0.03 X10^3/uL; Basophil% 0.2 % (0-1); Hemoglobin 8.3 g/dL (13.0-16.5); Lymphocyte # 1.02 X10^3/ul (0.83-4.51); Lymphocyte % 7.3 % (19-41); Mean Corp Hgb Conc 31.9 g/dL (32-36); Mean Corpuscular Hgb 28.2 pg (27.0-32.0); Mean Corpuscular Volume 88.4 fL (80-94); Mean Platelet Vol. 10.6 fl (6.2-12.0); Monocyte# 0.84 X10^3/uL; NRBC Flagged by Analyzer 0.1 % (0-5); Neutrophil # 11.75 X10^3/uL (2.7-7.7); Neutrophil % 84.6 % (47-70); Platelet Count 268 K/mm3 (150-450); RBC Distribution Width CV 17.6 % (11.6-14.6); RBC Distribution Width SD 56.4 fl (35.1-43.9); Red Blood Count 2.94 M/mm3 (4.6-6.2); White Blood Count 13.9 K/mm3 (4.4-11.0)
--- NOTE | 2021-12-10 07:41 | PN.HOSP_ITS ---
Subjective Subjective Patient is a 71-year-old gentleman admitted with progressive shortness of breath diagnosed with COPD exacerbation with acute rhinovirus infection. Patient was also found to have GI bleed consult placed to GI with plans for patient to undergo endoscopic evaluation Objective Data Objective Data Vital Signs: Vital Signs Temp Pulse Resp BP Pulse Ox O2 Del Method O2 Flow Rate 97.4 F L 60 16 111/61 99 Nasal Cannula 2 12/10/21 06:39 12/10/21 06:39 12/10/21 06:39 12/10/21 06:39 12/10/21 06:39 12/10/21 06:39 12/10/21 06:39 Oxygen Flow Rate (L/min) 2 Oxygen Delivery Method Nasal Cannula Weight: 86.4 kg Body Mass Index (BMI) 26.0 Intake & Output: Intake and Output for Last 24 Hours 12/08/21 12/09/21 12/10/21 23:59 23:59 23:59 Intake Total 305 / 305 510 / 510 655 / 655 Output Total 1075 / 1075 875 / 875 Balance 305 / 105 -565 / -565 -220 / -220 Lab / Micro Data Result Diagrams: 12/10/21 07:05 12/10/21 07:05 Labs: Laboratory Results - last 24 hr 12/09/21 10:10: Blood Type AB POSITIVE, Antibody Screen NEGATIVE 12/09/21 10:10: Hgb 8.5 L, Hct 27.9 L 12/09/21 10:10: Crossmatch See Detail 12/09/21 11:21: POC Glucose 410 H 12/09/21 16:00: Hgb 7.2 L, Hct 23.4 L 12/09/21 16:20: POC Glucose 351 H 12/09/21 21:30: POC Glucose 393 H 12/09/21 22:35: Hgb 7.0 L, Hct 21.9 L 12/10/21 06:40: POC Glucose 296 H 12/10/21 07:05: WBC 13.9 H, RBC 2.94 L, Hgb 8.3 L, Hct 26.0 L, MCV 88.4, MCH 28.2, MCHC 31.9 L, RDW Std Deviation 56.4 H, RDW Coeff of Rafael 17.6 H, Plt Count 268, MPV 10.6, Immature Gran % (Auto) 1.900 H, Neut % (Auto) 84.6 H, Lymph % (Auto) 7.3 L, [place] % (Auto) 6.0, Eos % (Auto) 0.0, Baso % (Auto) 0.2, Absolute Neuts (auto) 11.8 H, Absolute Lymphs (auto) 1.02, Nucleated RBC % 0.1 Micro: Microbiology 12/08/21 14:05 Urine, Random Legionella Antigen - Final 12/08/21 14:05 Urine, Random Streptococcus pneumoniae Antigen (M - Final 12/08/21 20:32 Mucosa - Nasopharyngeal Respiratory Panel (PCR) - Final Rhinovirus 12/08/21 19:30 Sputum, Expectorated/Coughed Gram Stain - Final 12/08/21 19:30 Sputum, Expectorated/Coughed Respiratory Culture - Preliminary Appears to be normal respiratory domenico. Further studies to follow. 12/09/21 10:15 Stool Stool Occult Blood ([facility]) - Final Occult Blood Positive 12/08/21 17:20 Nasal Secretion SARS-CoV-2 & FLU Antigen (Rapid) - Final Physical Exam Narrative GENERAL: cooperative HEENT: Atraumatic; normocephalic EYES; Anicteric, Normal Conjunctiva NECK; supple, normal thyroid, RESPIRATORY: Diminished to auscultation CARDIOVASCULAR: Regular S1 S2, GI: soft, normoactive bowel sounds, : No Renal angle tenderness; EXTREMITIES: No edema, no clubbing, MUSCULOSKELETAL: no muscle wasting NEURO: Awake; no lateralizing signs. SKIN: No Rash PSYCH; Flat affect Assessment & Plan Assessment/Plan (1) Iron deficiency anemia: QUALIFIERS: Iron deficiency anemia type: unspecified iron deficiency Qualified Code(s): D50.9 - Iron deficiency anemia, unspecified (2) COPD exacerbation: PLAN: Plan Patient is a 71-year-old gentleman admitted with progressive shortness of breath diagnosed with COPD exacerbation with acute rhinovirus infection. Patient was also found to have GI bleed consult placed to GI with plans for patient to undergo endoscopic evaluation 1. COPD exacerbation ? Secondary to acute rhinovirus infection admitted to regular nursing floor managed with antibiotics steroid as well as bronchodilator treatment in addition to supplemental oxygen titrated to keep saturation greater than 90 2. Acute on chronic GI bleed ? Patient has had recent endoscopic evaluation which demonstrated gastritis in the gastric fundus as well as AVMs in the ascending colon/cecum. Patient is on PPI did continue. Consult placed to Dr. Galeana with GI plan for patient to unde rgo endoscopic evaluation 3. Anemia ? Secondary to acute on chronic blood loss anemia monitoring H&H with plans to transfuse if hemoglobin falls below 7 or patient is deemed to be symptomatic 4.? Chronic hypoxic respiratory failure ? Secondary to suspected pulmonary fibrosis from prior COVID-19 infection.? Patient currently on supplemental oxygen 5.? 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 Previously treated with apixaban.? Patient did not tolerate apixaban as a result of GI bleed he underwent IVC filter placement on 05/02/2021 6.? Diabetes mellitus type II -patient's oral hypoglycemics held. Placed on long acting insulin, Accu-Cheks a.c. and at bedtime and covered with sliding scale insulin 7.? Rheumatoid arthritis Patient previously treated with rituximab as outpatient 8.? Non Hodgkin's lymphoma ?Apparently in remission 9.? Coronary artery disease ?With previous PCI of an LAD RCA and mid circumflex lesions 10. Dyslipidemia -Patient is on statin therapy, continued at home dose 11. Hypertension -Per history currently not on any antihypertensives 12.? Depression ? Patient is on SSRI 13. Lung nodule ? seen on CT of the chest, outpatient follow-up with PET scan recommended 14. DVT prophylaxis ?SCDs Charges/Coding Visit Charges Inpatient E&M: 35613 Subs Hosp L2
[2021-12-10 08:04] LABS: ALB/GLOB Ratio 0.9 RATIO (0.9-2.4); AST(SGOT) 7 U/L (15-37); Alanine Aminotransfer ALT/SGPT 14 U/L (16-61); Albumin, Serum 2.5 g/dL (3.2-5.0); Alkaline Phosphatase 68 U/L (45-117); Anion Gap 7 (5-15); BUN 28 mg/dL (7-18); BUN/Creat Ratio 23.9 RATIO (10-20); Calcium,Total 8.5 mg/dL (8.5-10.1); Chloride 106 mmol/L (98-107); Creatinine, Serum 1.17 mg/dL (0.70-1.30); EST Glomerular Filtration Rate 65 mL/min (>60); Est Glom Filt Rate - Afr Amer 79 mL/min (>60); Estimated Creatinine Clearance 60.78 ml/min; Globulin 2.8 g/dL (2.2-4.2); Glucose 281 mg/dL (74-106); Potassium 4.5 mmol/L (3.5-5.1); Protein, Total 5.3 g/dL (6.4-8.2); Sodium Level 139 mmol/L (136-145)
[2021-12-10] MEDS: Lactated Ringers 1,000 ML 15 ML IV (09:31)
[2021-12-10 09:58] LABS: Partial Thromboplast Time 24.6 Seconds (24.1-36.2)
[2021-12-10 10:19] LABS: International Normalized Ratio 1.2; Prothrombin Time (Protime)PT. 14.8 SECONDS (11.7-14.9)
--- NOTE | 2021-12-10 10:53 | CASEMGMT ---
RN CM in to pt room to complete assessment, pt is off floor at this time. Will complete assessment at a later time.
[2021-12-10 10:55] LABS: Hemoglobin A1c 8.5 % (3.8-5.6)
--- NOTE | 2021-12-10 12:21 | OP.EGD_ITS ---
Patient Name: Jaydon Quintana Procedure Date: 12/10/2021 11:53 AM Date of : 1950 Age: 71 Procedure: Upper GI endoscopy Indications: Iron deficiency anemia, Melena Providers: Khai Galeana DO Medicines: Monitored Anesthesia Care Patient Profile: This is a 71 year old male. Refer to note in patient chart for documentation of history and physical. Patient has symptoms of acute nausea and acute vomiting. Complications: No immediate complications. Procedure: Pre-Anesthesia Assessment: - Prior to the procedure, a History and Physical was performed, and patient medications and allergies were reviewed. The risks and benefits of the procedure and the sedation options and risks were discussed with the patient. All questions were answered and informed consent was obtained. Patient identification and proposed procedure were verified by the physician in the pre-procedure area. Mental Status Examination: alert and oriented. Airway Examination: normal oropharyngeal airway and neck mobility. Respiratory Examination: clear to auscultation. CV Examination: normal. Prophylactic Antibiotics: The patient does not require prophylactic antibiotics. Prior Anticoagulants: The patient has taken no previous anticoagulant or antiplatelet agents. ASA Grade Assessment: II - A patient with mild systemic disease. After reviewing the risks and benefits, the patient was deemed in satisfactory condition to undergo the procedure. The anesthesia plan was to use monitored anesthesia care (MAC). Immediately prior to administration of medications, the patient was re-assessed for adequacy to receive sedatives. The heart rate, respiratory rate, oxygen saturations, blood pressure, adequacy of pulmonary ventilation, and response to care were monitored throughout the procedure. The physical status of the patient was re-assessed after the procedure. After obtaining informed consent, the endoscope was passed under direct vision. Throughout the procedure, the patient's blood pressure, pulse, and oxygen saturations were monitored continuously. The gastroscope was introduced through the mouth, and advanced to the second part of duodenum. The upper GI endoscopy was accomplished without difficulty. The patient tolerated the procedure well. Scope In: 12:05:40 PM Scope Out: 12:14:08 PM Total Procedure Duration Time 0 hours 8 minutes 28 seconds Findings: The examined esophagus was normal. A small hiatal hernia was present. Two non-bleeding linear gastric ulcers with no stigmata of bleeding were found on the greater curvature of the stomach. The largest lesion was 6 mm in largest dimension. Three 5 mm bleeding angiodysplastic lesions were found on the greater curvature of the stomach. Coagulation for hemostasis using argon plasma at 0.3 liters/minute and 20 campbell was successful. Estimated blood loss was minimal. Moderate gastric antral vascular ectasia without bleeding was present in the gastric antrum. Coagulation for bleeding prevention using monopolar probe was successful. Estimated blood loss was minimal. Two 5 mm angiodysplastic lesions with bleeding were found in the first portion of the duodenum. Coagulation for hemostasis using monopolar probe was successful. Estimated blood loss was minimal. Impression: - Normal esophagus. - Small hiatal hernia. - Non-bleeding gastric ulcers with no stigmata of bleeding. 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 Treated with argon plasma coagulation (APC). - Gastric antral vascular ectasia without bleeding. Treated with a monopolar probe. - Two bleeding angiodysplastic lesions in the duodenum. Treated with a monopolar probe. 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 Recommendation: - Return patient to hospital [facility] for ongoing care. - Use sucralfate tablets 1 gram PO QID. - Full liquid diet. - Continue present medications. Procedure Code(s): --- Professional --- 67402, Esophagogastroduodenoscopy, flexible, transoral; with control of bleeding, any method CPT copyright 2017 [employer]. All rights reserved. The codes documented in this report are preliminary and upon inverter and clipper review may be revised to meet current compliance requirements. Khai Galeana DO 12/10/2021 12:21:24 PM This report has been signed electronically. Number of Addenda: 0 Note Initiated On: 12/10/2021 11:53 AM
--- NOTE | 2021-12-10 12:22 | OP.CCLET_ITS ---
12/10/2021 Ceci Vaca Re : Upper GI endoscopy procedure for Jaydon Quintana Dear Wang This procedure was performed on Friday, December 10, 2021. My impressions and recommendations are as follows: Impressions : - Normal esophagus. - Small hiatal hernia. - Non-bleeding gastric ulcers with no stigmata of bleeding. 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 Treated with argon plasma coagulation (APC). - Gastric antral vascular ectasia without bleeding. Treated with a monopolar probe. - Two bleeding angiodysplastic lesions in the duodenum. Treated with a monopolar probe. 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 Recommendations : - Return patient to hospital [facility]re[facility] for ongoing care. - Use sucralfate tablets 1 gram PO QID. - Full liquid diet. - Continue present medications. My findings are described in the full procedure note, which is enclosed. If I can be of further assistance, please feel free to contact me at . Sincerely, Khai Galeana, 12/10/2021 12:21:24 PM This report has been signed electronically.
[2021-12-10] MEDS: predniSONE 20 MG Tablet 40 MG PO (14:19)
[2021-12-10] MEDS: Metoprolol Tartrate 25 MG Tablet 12.5 MG PO ×2 (14:20→22:07)
[2021-12-10] MEDS: guaiFENesin 1,200 MG Tablet 1200 MG PO ×2 (14:20→22:05)
[2021-12-10] MEDS: Cholecalciferol (VIT D3) 25 MCG TABLET (1,000 UNITS) PO (14:20)
[2021-12-10] MEDS: Ferrous Sulfate 325 MG Tablet PO ×2 (14:22→18:07)
[2021-12-10] MEDS: Potassium Chloride Oral Tablet 10 MEQ PO (14:22)
--- NOTE | 2021-12-10 14:40 | CM.UR ---
Addendum entered by Mona Porras 12/10/21 15:51: Received confirmation from [facility]. Pt is active with SN. [facility] is willing to resume services. Vera, with [facility], confirmed they are active with Pt and aware of the hospitalization. Addendum entered by Mona Porras 12/10/21 15:21: TARAH DEL RIO called [facility] to confirm Pt is active with services. Left voicemail with return call back information. Referral sent to [facility] to confirm active services. Original Note: TARAH DEL RIO Assessment: Face to Face with pt for initial transition planning/care coordination assessment. TARAH DEL RIO introduced self and role at [facility], pt voices understanding and consents to assessment. Pt is A/O x4 and answers all questions appropriately at this time. Pt in bed with oxygen. No distress. Care providers, pharmacy, and demographics verified/updated. Admitting Dx: COPD Exac, PNA PCP: [facility]CEIVING [facility]OCI[facility] ([facility]) Specialists: Mani, Pulmonary; Riaz, Cardiology; Friend, GI. Preferred Pharmacy: [facility]. Insurance: [facility] Medicare. Prescription Benefit: yes LW/HPOA: Pt has living will and DPOA on file. DPOA is , [place]. LNOK: , [place]. Living Arrangements: Pt lives with . Two story home but only uses main level. Pt has two steps to enter with a rail. Pt reports mostly I in ADLs. Pt does have an aide who assists with dressing and safety during bathing. Pt denies concerns at home. Transportation: Pt's transports to medical appointments. DME/HHC/SNF: Pt has a FWW, rollator, hospital bed, BSC, and oxygen through [employer]. Pt reports he is on 4L continuous oxygen. Pt is aware to have bring portable oxygen tank at discharge. Pt reports having a glucometor with supplies. Pt checks each morning. Pt reports being active with [facility] with an aide, SN, and PT. Pt denies SNF stays and reports being active with [facility]. Pt states no concerns with going home at time of dc. Pt states no further concerns/needs. CM to follow. Advised pt to ask CM if any further question/concerns/needs arise, voices understanding. Pt Goal: Home with resumption of HHC and Palliative care. Plan: Home with resumption of HHC and Palliative care.
[2021-12-10 17:00] LABS: Bedside Glucose 163 mg/dL (74-106)
[2021-12-10 17:01] LABS: Bedside Glucose 195 mg/dL (74-106)
[2021-12-10] MEDS: Atorvastatin Calcium 20 MG Tablet PO (22:02)
[2021-12-10] MEDS: Mirtazapine 15 MG Tablet 7.5 MG PO (22:02)
[2021-12-10] MEDS: Insulin Glargine-YFGN 100 UNIT/ML Pen 10 UNIT SC (22:05)
[2021-12-10] MEDS: 0.9% Saline Lock 10 ML Syringe IV (22:12)
[2021-12-10] MEDS: Ceftriaxone 1 GM/50 ML BAG IV (22:24)
[2021-12-10 22:56] LABS: Bedside Glucose 331 mg/dL (74-106)
[2021-12-11] VITALS (12 sets, daily range): BP systolic 133–151; BP diastolic 52–70; PULSE 45–73; RESP 16–20; TEMP 36.3–36.6; O2SAT 94–100
[2021-12-11] MEDS: Insulin Lispro 100 UNIT/ML INSULN.PEN SC ×2 (06:39→11:30)
[2021-12-11] MEDS: Sucralfate 1 GM Tablet PO ×2 (06:40→11:30)
[2021-12-11] MEDS: 0.9% Saline Lock 10 ML Syringe IV (06:41)
[2021-12-11 07:00] LABS: Bedside Glucose 330 mg/dL (74-106)
[2021-12-11 07:02] LABS: Absolute Lymphocyte Count 0.92 X10^3/uL (0.83-4.51); Absolute Neutrophil Count 7.4 X10^3/uL (2.0-7.7); Basophil# 0.01 X10^3/uL; Basophil% 0.1 % (0-1); Hematocrit 25.3 % (40-54); Hemoglobin 8.1 g/dL (13.0-16.5); Lymphocyte # 0.92 X10^3/ul (0.83-4.51); Lymphocyte % 10.4 % (19-41); Mean Corpuscular Hgb 28.3 pg (27.0-32.0); Mean Corpuscular Volume 88.5 fL (80-94); Mean Platelet Vol. 11.2 fl (6.2-12.0); Monocyte# 0.42 X10^3/uL; Monocyte% 4.7 % (0-10); NRBC Flagged by Analyzer 0.2 % (0-5); Neutrophil # 7.39 X10^3/uL (2.7-7.7); Neutrophil % 83.3 % (47-70); Platelet Count 239 K/mm3 (150-450); RBC Distribution Width CV 17.5 % (11.6-14.6); RBC Distribution Width SD 56.6 fl (35.1-43.9); Red Blood Count 2.86 M/mm3 (4.6-6.2); White Blood Count 8.9 K/mm3 (4.4-11.0)
[2021-12-11 07:32] LABS: ALB/GLOB Ratio 0.9 RATIO (0.9-2.4); AST(SGOT) 12 U/L (15-37); Alanine Aminotransfer ALT/SGPT 20 U/L (16-61); Albumin, Serum 2.5 g/dL (3.2-5.0); Alkaline Phosphatase 66 U/L (45-117); Anion Gap 5 (5-15); BUN 35 mg/dL (7-18); BUN/Creat Ratio 30.4 RATIO (10-20); Calcium,Total 8.4 mg/dL (8.5-10.1); Chloride 109 mmol/L (98-107); Creatinine, Serum 1.15 mg/dL (0.70-1.30); EST Glomerular Filtration Rate 66 mL/min (>60); Est Glom Filt Rate - Afr Amer 80 mL/min (>60); Estimated Creatinine Clearance 61.84 ml/min; Globulin 2.7 g/dL (2.2-4.2); Glucose 324 mg/dL (74-106); Protein, Total 5.2 g/dL (6.4-8.2); Sodium Level 141 mmol/L (136-145)
--- NOTE | 2021-12-11 08:33 | PCM.DC.SUM ---
Providers Date of Admission: 12/08/21 Date of Discharge: 12/11/21 Primary Care Physician: SORIN MCKENZIE Consultations 12/09/21 09:55 Consult: Gastroenterology Routine Consulting Provider: Tamara Gastroenterology Reason for Consult: Recurrent GI bleed EMERGENT Consult: Yes Notified: Yes Date Notified: 12/09/21 Time Notified: 09:55 Method of Notification: Text Reason For Visit: COPD EXAC, PNA Diagnosis Discharge Diagnosis (1) Iron deficiency anemia: Status: Chronic Code(s): D50.9 - Iron deficiency anemia, unspecified Qualifiers: Iron deficiency anemia type: unspecified iron deficiency Qualified Code(s): D50.9 - Iron deficiency anemia, unspecified Plan Patient is a 71-year-old gentleman admitted with progressive shortness of breath diagnosed with COPD exacerbation with acute rhinovirus infection. Patient was also found to have GI bleed consult placed to GI with plans for patient to undergo endoscopic evaluation 1. COPD exacerbation ? Secondary to acute rhinovirus infection admitted to regular nursing floor managed with antibiotics steroid as well as bronchodilator treatment in addition to supplemental oxygen titrated to keep saturation greater than 90 2. Acute on chronic GI bleed ? Patient has had recent endoscopic evaluation which demonstrated gastritis in the gastric fundus as well as AVMs in the ascending colon/cecum. Patient is on PPI did continue. Consult placed to Dr. Galeana with GI plan for patient to undergo endoscopic evaluation -12/11/2021; endoscopy today prior impressions and treatment as below - Normal esophagus. - Small hiatal hernia. - Non-bleeding gastric ulcers with no stigmata of bleeding. - Three bleeding angiodysplastic lesions in the stomach.? Treated with argon ?plasma coagulation (APC). - Gastric antral vascular ectasia without bleeding.? Treated with a monopolar probe. - Two bleeding angiodysplastic lesions in the duodenum.? Treated with a monopolar probe. 3. Anemia ? Secondary to acute on chronic blood loss anemia monitoring H&H with plans to transfuse if hemoglobin falls below 7 or patient is deemed to be symptomatic 4.? Chronic hypoxic respiratory failure ? Secondary to suspected pulmonary fibrosis from prior COVID-19 infection.? Patient currently on supplemental oxygen 5.? 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 Previously treated with apixaban.? Patient did not tolerate apixaban as a result of GI bleed he underwent IVC filter placement on 05/02/2021 6.? Diabetes mellitus type II -patient's oral hypoglycemics held. Placed on long acting insulin, Accu-Cheks a.c. and at bedtime and covered with sliding scale insulin 7.? Rheumatoid arthritis Patient previously treated with rituximab as outpatient 8.? Non Hodgkin's lymphoma ?Apparently in remission 9.? Coronary artery disease ?With previous PCI of an LAD RCA and mid circumflex lesions 10. Dyslipidemia -Patient is on statin therapy, continued at home dose 11. Hypertension -Per history currently not on any antihypertensives 12.? Depression ? Patient is on SSRI 13. Lung nodule ? seen on CT of the chest, outpatient follow-up with PET scan recommended 14. DVT prophylaxis ?SCDs Medications at Discharge Home Medications cholecalciferol (vitamin D3) 25 mcg (1,000 unit) capsule 25 mcg PO DAILY vitamin 07/17/20 nitroglycerin 0.4 mg sublingual tablet (Nitrostat) 0.4 mg sublingual Q5M PRN chest pain #30 tabs 09/25/20 ferrous sulfate 325 mg (65 mg iron) tablet 325 mg PO BID iron supplement 04/26/21 ipratropium 0.5 mg-albuterol 3 mg (2.5 mg base)/3 mL nebulization soln 3 ml inhalation Q4H PRN PRN SOB &/OR WHEEZING #180 mL 06/18/21 escitalopram oxalate 10 mg tablet 10 mg PO DAILY mood 30 days #90 tabs 06/21/21 potassium chloride 10 mEq tablet,extended release(part/cryst) 10 meq PO DAILY@0800 vitamin 08/06/21 atorvastatin 40 mg tablet 20 mg PO QHS cholesterol 10/09/21 metoprolol tartrate 25 mg tablet 12.5 mg PO BID BP 10/09/21 budesonide 1 mg/2 mL suspension for nebulization 1 mg (2 mL) inhalation BID #60 mL 11/02/21 mirtazapine 15 mg tablet (Remeron) 7.5 mg PO QHS sleep 12/08/21 pantoprazole 40 mg tablet,delayed release 40 mg PO BID reflux 12/08/21 cefdinir 300 mg capsule 300 mg PO BID #10 caps 12/11/21 guaifenesin 1,200 mg tablet, extended release 12 hr (Mucus Relief ER) 1,200 mg PO BID 7 days #14 tabs 12/11/21 insulin glargine 100 unit/mL (3 mL) subcutaneous pen (Lantus Solostar U-100 Insulin) 10 unit (0.1 mL) subcut BID #15 mL 12/11/21 prednisone 20 mg tablet 40 mg PO BREAKFAST #10 tabs 12/11/21 sucralfate 1 gram tablet 1 g PO 0700,1100,1600 #90 tabs 12/11/21 Hospital Course Summary of Care Provided Minutes Spent on Discharge: 35 Physical Exam Narrative GENERAL: cooperative HEENT: Atraumatic; normocephalic EYES; Anicteric, Normal Conjunctiva NECK; supple, normal thyroid, RESPIRATORY: Diminished to auscultation CARDIOVASCULAR: Regular S1 S2, GI: soft, normoactive bowel sounds, : No Renal angle tenderness; EXTREMITIES: No edema, no clubbing, MUSCULOSKELETAL: no muscle wasting NEURO: Awake; no lateralizing signs. SKIN: No Rash PSYCH; Flat affect Weight / BMI Weight Weight: 85.5 kg Body Mass Index (BMI) 26.5 ABG / Lab / Microbiology Data Result Diagrams: 12/11/21 06:10 12/11/21 06:10 Laboratory: Laboratory Results - last 24 hr 12/10/21 07:05: Hemoglobin A1c 8.5 H 12/10/21 09:37: PT 14.8, INR 1.2, APTT 24.6 12/10/21 14:14: POC Glucose 163 H 12/10/21 16:23: POC Glucose 195 H 12/10/21 21:57: POC Glucose 331 H 12/11/21 06:10: WBC 8.9, RBC 2.86 L, Hgb 8.1 L, Hct 25.3 L, MCV 88.5, MCH 28.3, MCHC 32.0, RDW Std Deviation 56.6 H, RDW Coeff of Rafael 17.5 H, Plt Count 239, MPV 11.2, Immature Gran % (Auto) 1.500 H, Neut % (Auto) 83.3 H, Lymph % (Auto) 10.4 L, [place] % (Auto) 4.7, Eos % (Auto) 0.0, Baso % (Auto) 0.1, Absolute Neuts (auto) 7.4, Absolute Lymphs (auto) 0.92, Nucleated RBC % 0.2 12/11/21 06:10: Sodium 141, Potassium 5.0, Chloride 109 H, Carbon Dioxide 27.0, Anion Gap 5, BUN 35 H, Creatinine 1.15, Estim Creat Clear Calc 61.84, Est GFR (MDRD) Af Amer 80, Est GFR (MDRD) Non-Af 66, BUN/Creatinine Ratio 30.4 H, Glucose 324 H, Calcium 8.4 L, Total Bilirubin 0.30, AST 12 L, ALT 20, Alkaline Phosphatase 66, Total Protein 5.2 L, Albumin 2.5 L, Globulin 2.7, Albumin/Globulin Ratio 0.9 12/11/21 06:38: POC Glucose 330 H Microbiology: Microbiology 12/08/21 19:30 Sputum, Expectorated/Coughed Gram Stain - Final 12/08/21 19:30 Sputum, Expectorated/Coughed Respiratory Culture - Final Mixed normal respiratory domenico. No Streptococcus pneumoniae, beta-hemolytic Streptococcus or Staphylococcus aureus isolated. 12/08/21 14:05 Urine, Random Legionella Antigen - Final 12/08/21 14:05 Urine, Random Streptococcus pneumoniae Antigen (M - Final 12/08/21 20:32 Mucosa - Nasopharyngeal Respiratory Panel (PCR) - Final Rhinovirus 12/09/21 10:15 Stool Stool Occult Blood (FOREST) - Final Occult Blood Positive 12/08/21 17:20 Nasal Secretion SARS-CoV-2 & FLU Antigen (Rapid) - Final D/C Instructions Discharge Diet: 1800 Calorie Control Diet Discharge Activity: Return to Normal Activity Call your doctor if you observe: Fever of 101 or Higher, Shortness of breath, Fainting spells and Chest pain Meaningful Use Info Meaningful Use Diagnoses (Choose all that apply): None applicable Discharge Plan Admission Admit Date/Time: 12/08/21 19:16 Attending Provider: Jordan Ortiz Primary Care Provider: OLEG ELIZONDO Consulting Providers: Janice Mackey ; Suze Rosas Discharge Orders/Prescriptions Prescriptions: New sucralfate 1 gram Tablet 1 g PO 0700,1100,1600 Qty: 90 0RF prednisone 20 mg Tablet 40 mg PO BREAKFAST Qty: 10 0RF Mucus Relief ER 1,200 mg Tablet Extended Release 12hr 1,200 mg PO BID 7 Days Qty: 14 0RF cefdinir 300 mg capsule 300 mg PO BID Qty: 10 0RF insulin glargine [Lantus Solostar U-100 Insulin] 100 unit/mL (3 mL) insulin pen 10 unit subcut BID Qty: 15 0RF Continued cholecalciferol (vitamin D3) 25 mcg (1,000 unit) capsule 25 mcg PO DAILY nitroglycerin [Nitrostat] 0.4 mg tablet, sublingual 0.4 mg SUBLINGUAL Q5M PRN (Reason: chest pain) Qty: 30 0RF Rx Instructions: until response; do not exceed 3 doses per episode metoprolol tartrate 25 mg tablet 12.5 mg PO BID ferrous sulfate 325 mg (65 mg iron) tablet 325 mg PO BID potassium chloride 10 mEq tablet,ER particles/crystals 10 meq PO DAILY@0800 atorvastatin 40 mg tablet 20 mg PO QHS pantoprazole 40 mg tablet,delayed release (DR/EC) 40 mg PO BID mirtazapine [Remeron] 15 mg tablet 7.5 mg PO QHS ipratropium-albuterol 0.5 mg-3 mg(2.5 mg base)/3 mL solution for nebulization 3 ml inhalation Q4H PRN PRN (Reason: SOB &/OR WHEEZING) Qty: 180 6RF escitalopram oxalate 10 mg tablet 10 mg PO DAILY 30 Days Qty: 90 3RF budesonide 1 mg/2 mL suspension for nebulization 1 mg inhalation BID Qty: 60 6RF Referrals / Follow Up: Khai Galeana DO [Med Staff - Active Staff] - Within 2 Weeks OLEG ELIZONDO NP-C [Primary Care Provider] - In 1 Week Disposition Disposition (needs filled in before D/C Order can be placed): Home, Self Care Charges/Coding Visit Charges Inpatient E&M: 32020 Disch Hosp
[2021-12-11] MEDS: guaiFENesin 1,200 MG Tablet 1200 MG PO (08:46)
[2021-12-11] MEDS: Metoprolol Tartrate 25 MG Tablet 12.5 MG PO (08:46)
[2021-12-11] MEDS: Cholecalciferol (VIT D3) 25 MCG TABLET (1,000 UNITS) PO (08:46)
[2021-12-11] MEDS: predniSONE 20 MG Tablet 40 MG PO (08:47)
[2021-12-11] MEDS: Potassium Chloride Oral Tablet 10 MEQ PO (08:47)
[2021-12-11] MEDS: Ferrous Sulfate 325 MG Tablet PO (11:35)
[2021-12-11 11:50] LABS: Bedside Glucose 283 mg/dL (74-106)
--- NOTE | 2021-12-11 13:38 | CASEMGMT ---
Pt ready for DC. DC summary and HH Order sent to [facility] via [employer] No change in oxygen Rx needed.
== END 2021-12-11 14:37 | disposition home or self-care (01) | DRG 190 ==
LOC: ED 19:26 → MS3 20:43
PROVIDERS: Anesthesiology; Internal Medicine; Internal Medicine Gastroenterology; Admitting Provider Family Medicine; Emergency Provider Emergency Medicine; PCP Nurse Practitioner Family; Visit Provider Internal Medicine
PROC: 0DJ08ZZ Inspection of Upper Intestinal Tract, Via Natural or Artificial Opening Endoscopic (ICD-10-PCS; CPT 43235; principal; 2021-12-10 11:25)
DX: J43.9 Emphysema, unspecified (principal); K31.811 Angiodysplasia of stomach and duodenum with bleeding; J96.11 Chronic respiratory failure with hypoxia; D68.8 Other specified coagulation defects; D62 Acute posthemorrhagic anemia; C85.90 Non-Hodgkin lymphoma, unspecified, unspecified site; E11.9 Type 2 diabetes mellitus without complications; Z79.4 Long term (current) use of insulin; J84.10 Pulmonary fibrosis, unspecified; M06.9 Rheumatoid arthritis, unspecified; I10 Essential (primary) hypertension; E78.00 Pure hypercholesterolemia, unspecified; I25.10 Atherosclerotic heart disease of native coronary artery without angina pectoris; K44.9 Diaphragmatic hernia without obstruction or gangrene; F41.9 Anxiety disorder, unspecified; U09.9 Post COVID-19 condition, unspecified; K25.9 Gastric ulcer, unspecified as acute or chronic, without hemorrhage or perforation; B34.8 Other viral infections of unspecified site; F32.A Depression, unspecified; R91.1 Solitary pulmonary nodule; Z66 Do not resuscitate; Z95.5 Presence of coronary angioplasty implant and graft; Z99.81 Dependence on supplemental oxygen; Z79.899 Other long term (current) drug therapy; Z86.711 Personal history of pulmonary embolism; Z86.718 Personal history of other venous thrombosis and embolism; Z87.891 Personal history of nicotine dependence
CPT/HCPCS: 36415; 71045; 71275; 80048; 80053; 82274; 82962; 83036; 83880; 84484; 85014; 85018; 85025; 85379; 85610; 85730; 86850; 86900; 86901; 86920; 87040; 87070; 87205; 87428; 87449; 87633; 87641; 93005; 94640; 97802; 99251; 99285; 99406; J7040; J7050; J7120; P9016; Q9967; A4216; G0463

== ENCOUNTER → 2021-12-21 | Outpatient (CLI) | payer MEDICARE, SELFPAY ==
[2021-12-21 12:26] LABS: Absolute Lymphocyte Count 1.52 X10^3/uL (0.83-4.51); Absolute Neutrophil Count 6.5 X10^3/uL (2.0-7.7); Basophil# 0.04 X10^3/uL; Basophil% 0.4 % (0-1); Eosinophil# 0.85 X10^3/uL; Eosinophils% 8.4 % (0-5); Hematocrit 31.5 % (40-54); Hemoglobin 9.8 g/dL (13.0-16.5); Lymphocyte # 1.52 X10^3/ul (0.83-4.51); Lymphocyte % 15.1 % (19-41); Mean Corp Hgb Conc 31.1 g/dL (32-36); Mean Platelet Vol. 10.8 fl (6.2-12.0); Monocyte# 0.97 X10^3/uL; Monocyte% 9.6 % (0-10); NRBC Flagged by Analyzer 0 % (0-5); Neutrophil # 6.48 X10^3/uL (2.7-7.7); Neutrophil % 64.3 % (47-70); Platelet Count 242 K/mm3 (150-450); RBC Distribution Width CV 19.1 % (11.6-14.6); RBC Distribution Width SD 63.5 fl (35.1-43.9); White Blood Count 10.1 K/mm3 (4.4-11.0)
== END | disposition home or self-care (01) ==
LOC: LAB 11:34
PROVIDERS: PCP Nurse Practitioner Family; Visit Provider Internal Medicine Gastroenterology
DX: M79.89 Other specified soft tissue disorders (principal); D50.9 Iron deficiency anemia, unspecified
CPT/HCPCS: 36415; 85025

== ENCOUNTER → 2022-01-15 | Outpatient (CLI) | payer MEDICARE, SELFPAY ==
[2022-01-15 13:09] LABS: Hematocrit 29.5 % (40-54); Hemoglobin 9.3 g/dL (13.0-16.5); Mean Corp Hgb Conc 31.5 g/dL (32-36); Mean Corpuscular Hgb 27.8 pg (27.0-32.0); Mean Corpuscular Volume 88.3 fL (80-94); Mean Platelet Vol. 10.2 fl (6.2-12.0); Platelet Count 334 K/mm3 (150-450); RBC Distribution Width CV 17.2 % (11.6-14.6); RBC Distribution Width SD 55.7 fl (35.1-43.9); Red Blood Count 3.34 M/mm3 (4.6-6.2); White Blood Count 8.3 K/mm3 (4.4-11.0)
== END | disposition home or self-care (01) ==
LOC: LABSPEC 12:55
PROVIDERS: PCP Nurse Practitioner Family; Visit Provider Internal Medicine Gastroenterology
DX: D50.9 Iron deficiency anemia, unspecified (principal)
CPT/HCPCS: 85027

== ENCOUNTER → 2022-02-06 | Outpatient (CLI) | payer MEDICARE, SELFPAY ==
[2022-02-06 17:16] LABS: Hematocrit 31.4 % (40-54); Mean Corp Hgb Conc 31.8 g/dL (32-36); Mean Corpuscular Hgb 28.6 pg (27.0-32.0); Mean Corpuscular Volume 89.7 fL (80-94); Mean Platelet Vol. 10.9 fl (6.2-12.0); Platelet Count 325 K/mm3 (150-450); White Blood Count 9.4 K/mm3 (4.4-11.0)
== END | disposition home or self-care (01) ==
PROVIDERS: PCP Nurse Practitioner Family; Visit Provider Nurse Practitioner Family
DX: D50.9 Iron deficiency anemia, unspecified (principal)
CPT/HCPCS: 85027

== ENCOUNTER 2022-02-14 16:24 | Inpatient (IN) | payer MEDICARE, SELFPAY ==
[2022-02-14] VITALS (10 sets, daily range): BP systolic 98–117; BP diastolic 54–77; PULSE 64–85; RESP 16–21; TEMP 36.4–37.7; O2SAT 93–98; BMI 27.7; BMI 26.9
--- NOTE | 2022-02-14 16:56 | CT_ITS ---
STUDY: CT BRAIN WITHOUT CONTRAST REASON FOR EXAM: Male, 71 years old. altered mental status TECHNIQUE: Transaxial CT imaging of the brain was performed without administration of intravenous contrast material. Individualized dose optimization techniques were used for this CT. COMPARISON: 10.01.21 FINDINGS: Normal calvarium. Normal soft tissues. Leftward nasal septum deviation. There is a partially calcified mass along the right extra-axial space. This is likely a meningioma. Normal size ventricles and extra-axial spaces for the patient''s age. Normal white matter tracts of the cerebral hemispheres. Normal basal ganglia and thalami. Normal brainstem. Normal cerebellum. There is no intracranial hemorrhage. There are no findings of an acute ischemic infarction. There are calcifications noted in the distal vertebral arteries. There are calcifications noted in the cavernous carotid arteries. This is consistent for atherosclerotic disease. There is mucoperiosteal inflammatory disease of the paranasal sinuses consistent with mild chronic sinusitis. ASPECTS 10 CT/Brain/Head without Contrast IMPRESSION: There are no acute intracranial findings. Electronically Signed: Moo Yanes MD at 17:42 EST ,
--- NOTE | 2022-02-14 16:58 | ED.VIS.DYS ---
HPI History of Present Illness Chief Complaint: Shortness of Breath Informant: patient and spouse/S.O. Narrative Narrative: Difficult history from his disoriented patient, his presents saying that he is short of breath but in reality what she means is that he was hypoxemic at home today. states that in the past 2 days he has been more fatigued than usual, noticed that he was disoriented yesterday. She states for the past year he has been diagnosed with long COVID and as result of not getting better and having debility, has been on palliative care but not hospice. Palliative care nurse comes once per month and just happened to be there checking on him today and doing vital signs, seeing that he was hypoxic at 86%. She got him up to 92% but the patient is not on oxygen at home. The states that at no point did she notice him dyspneic the patient denies dyspnea, chest pain, pain anywhere else. He feels tired and he is disoriented. states that earlier he tried to get up and was too weak to stand. Additionally, he has been battling with intermittent internal bleeding from his intestines that he has seen Dr. Galeana for, and anemia as a result. No bright red blood per rectum or melena that either one of them know about recently in the last couple days. He is not anticoagulated. He has a history of pulmonary embolus in the past. [facility] Medical History Acute respiratory failure with hypoxia Allergic rhinitis Arthritis Asthma Atherosclerosis of coronary artery of [place] heart without angina pectoris Bleeding tendency Cancer Chronic bronchitis Colon polyp COPD (chronic obstructive pulmonary disease) COVID-19 in immunocompromised patient Diabetes DVT (deep venous thrombosis) (05/01/21) Essential hypertension Former smoker FTT (failure to thrive) in adult Gastritis GI bleed (04/2021) High cholesterol History of basal cell carcinoma History of pilonidal cyst History of pulmonary embolus (PE) (04/30/21) History of stress test HTN (hypertension) Hyperglycemia Nicotine dependence, cigarettes, uncomplicated Non-Hodgkin lymphoma Obesity On home oxygen therapy Physical debility Pneumonia Positive colorectal cancer screening using Cologuard test RA (rheumatoid arthritis) Rhinovirus Tobacco abuse Type 2 diabetes mellitus Ulcer 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 complications Home Medications cholecalciferol (vitamin D3) 25 mcg (1,000 unit) capsule 25 mcg PO DAILY vitamin 07/17/20 [History Last Taken 12/08/21] nitroglycerin 0.4 mg sublingual tablet (Nitrostat) 0.4 mg sublingual Q5M PRN chest pain #30 tabs 09/25/20 [Rx Last Taken Unknown] ferrous sulfate 325 mg (65 mg iron) tablet 325 mg PO BID iron supplement 04/26/21 [History Last Taken 12/08/21] ipratropium 0.5 mg-albuterol 3 mg (2.5 mg base)/3 mL nebulization soln 3 ml inhalation Q4H PRN PRN SOB &/OR WHEEZING #180 mL 06/18/21 [Rx Last Taken 10/23/21] escitalopram oxalate 10 mg tablet 10 mg PO DAILY mood 30 days #90 tabs 06/21/21 [Rx Last Taken 12/08/21] potassium chloride 10 mEq tablet,extended release(part/cryst) 10 meq PO DAILY@0800 vitamin 08/06/21 [History Last Taken 12/08/21] atorvastatin 40 mg tablet 20 mg PO QHS cholesterol 10/09/21 [History Last Taken 12/07/21] metoprolol tartrate 25 mg tablet 12.5 mg PO BID BP 10/09/21 [History Last Taken 12/08/21] budesonide 1 mg/2 mL suspension for nebulization 1 mg (2 mL) inhalation BID #60 mL 11/02/21 [Rx Last Taken Unknown] mirtazapine 15 mg tablet (Remeron) 7.5 mg PO QHS sleep 12/08/21 [History Last Taken 12/07/21] pantoprazole 40 mg tablet,delayed release 40 mg PO BID reflux 12/08/21 [History Last Taken 12/08/21] guaifenesin 1,200 mg tablet, extended release 12 hr (Mucus Relief ER) 1,200 mg PO BID 7 days #14 tabs 12/11/21 [Rx Last Taken Unknown] aspirin 81 mg tablet,delayed release 81 mg PO DAILY 12/31/21 [History Last Taken Unknown] Allergy/AdvReac Type Severity Reaction Status Date / Time levofloxacin [From Levaquin] AdvReac Intermediate diarrhea, Verified 02/14/22 16:25 dizziness, GI upset, weakness Family History Father Arthritis Bleeding disorder Hypertension Kidney disease Cancer Skin Anemia blood clots Emphysema lung Mother Colon cancer Cancer Lung Cancer Diabetes Brother Thyroid disorder Surgical History H/O cardiac catheterization History of coronary artery stent placement (10/22/13) History of excision of pilonidal cyst History of heart artery stent History of thymectomy Hx of lymph node excision Presence of IVC filter (04/2021) Status post cardiac surgery Social History household members: spouse Smoking Status: Former smoker second hand exposure: Yes quit status: considering quitting alcohol intake: current alcohol intake frequency: holidays/special occasions only substance use type: does not use caffeine: Yes Type: coffee Number of servings: 3 what type of physical activity do you participate in: none frequency: does not exercise seatbelt use: always ROS ROS ED Review of Systems ROS Unobtainable: due to mental status Constitutional Constitutional ED: Reports fatigue and weakness; Denies chills or fever(s) Eyes Eyes: Denies change in vision Cardiovascular Cardiovascular: Denies chest pain or palpitations Respiratory/Chest Respiratory/Chest: Reports cough; Denies dyspnea Gastrointestinal Gastrointestinal: Denies abdominal pain, diarrhea, nausea or vomiting Genitourinary Genitourinary ED: Denies dysuria or hematuria Musculoskeletal Musculoskeletal: Denies back pain or neck pain Integumentary Denies rash Neurologic Neurologic: Reports confusion; Denies headache(s), paresthesias or weakness EXAM Physical Exam Const Vital Signs: 02/14/22 16:26 02/14/22 16:33 02/14/22 16:33 Temperature 99.8 F H Temperature Source Oral Pulse Rate 85 81 Respiratory Rate 19 H 21 H Respiratory Effort Normal Respiratory Depth Normal Respiratory Pattern Normal Blood Pressure 107/77 114/60 Blood Pressure Mean 87 78 Pulse Ox 93 93 Oxygen Delivery Method Nasal Cannula Nasal Cannula Nasal Cannula Oxygen Flow Rate (L/min) 4 4 4 02/14/22 17:38 02/14/22 18:32 02/14/22 18:35 Temperature 99.2 F H Temperature Source Oral Pulse Rate 75 76 Respiratory Rate 21 H 16 Respiratory Effort Respiratory Depth Respiratory Pattern Blood Pressure 98/54 L 98/54 L Blood Pressure Mean 68 68 Pulse Ox 97 97 Oxygen Delivery Method Nasal Cannula Room Air Nasal Cannula Oxygen Flow Rate (L/min) 4 4 4 02/14/22 19:43 02/14/22 20:18 Temperature 98.2 F Temperature Source Temporal Pulse Rate 74 71 Respiratory Rate 16 21 H Respiratory Effort Respiratory Depth Respiratory Pattern Blood Pressure 103/56 L 104/55 L Blood Pressure Mean 71 71 Pulse Ox 97 96 Oxygen Delivery Method Nasal Cannula Nasal Cannula Oxygen Flow Rate (L/min) 4 4 Positive well nourished and well developed General Appearance ED: well developed and NAD HEENT Reports moist mucous membranes normocephalic and atraumatic Eyes PERRL and EOMs intact bilaterally Neck full ROM, no lymphadenopathy, supple and no meningeal signs Resp normal respiratory effort and clear to auscultation bilaterally Cardio regular rate, regular rhythm and no murmurs GI non-tender and non-distended Auscultation: normoactive bowel sounds Palpation: soft Back/Spine no CVA tenderness General Back: other FROM Extremity normal to inspection General Extremety ED: Negative for edema, pulses abnormal or tenderness General Extremity: Negative for edema or pulses abnormal Neuro CN's II-XII intact bilaterally and no sensory deficits noted Neuro Narrative: Generally weak nonfocal neuro exam. Cranial nerves intact. Sensorium / Orientation: awake, alert and oriented to person; Negative for oriented to place or oriented to time Motor Exam: general weakness Skin no rashes or lesions noted and no wounds MDM MDM MDM Narrative Medical decision making narrative: Patient is ill appearing but in no distress, with a low-grade temperature of 99.8 which we treated, and hypoxemic. Septic work-up was obtained, also considering the possibility of pulmonary embolus since he has had that before and he has very little in the way of symptoms right now with regards to her thorax except for being hypoxemic and confused probably as a result, I did a CT of the head to rule out HYDROLOGY TECHNICIAN etiologies it is negative. Chest x-ray 1 view on my interpretation shows bilateral infiltrates, radiology in agreement. The D-dimer came back elevated even when corrected for age, so I did send him for CT angiography while ordering Rocephin and azithromycin IV empirically. This showed no evidence of pulmonary embolus, and it did confirm what appeared to look like possible aspiration/infectious etiology and multiple bronchi. he was given some fluids, but he did not become hypotensive, his lactate is within normal limits, I do not think he needs to be bolused further right now. Given his hypoxemia, plan is for admission for further care. Of note, the patient was disoriented initially but on reevaluation after he has been here for a little while, awaiting CT results, his level of consciousness is improved and he is less disoriented and has no complaints and is doing fairly well although he still has an oxygen requirement. He was on 5 L I turned it down to 3 and he is satting in the low 90s and doing well. Therefore suspect his encephalopathy was probably related to his hypoxemia. Additionally, his urine appears dirty this was sent for culture, the Rocephin he was given for his pneumonia should help cover if it is truly infected. Lab Data Attestation: I reviewed the patient's lab results. Labs: Laboratory Results - last 24 hr 02/14/22 02/14/22 02/14/22 17:14 17:14 17:14 WBC 10.6 RBC 3.59 L Hgb 10.1 L Hct 32.0 L MCV 89.1 MCH 28.1 MCHC 31.6 L RDW Std Deviation 50.8 H RDW Coeff of Rafael 15.5 H Plt Count 295 MPV 10.0 Immature Gran % (Auto) 0.600 Neut % (Auto) 72.2 H Lymph % (Auto) 12.1 L [place] % (Auto) 13.2 H Eos % (Auto) 1.4 Baso % (Auto) 0.5 Absolute Neuts (auto) 7.6 Absolute Lymphs (auto) 1.28 Nucleated RBC % 0 D-Dimer Quant (PE/DVT) 1.88 H* Sodium 138 Potassium 5.1 Chloride 109 H Carbon Dioxide 25.0 Anion Gap 4 L BUN 39 H Creatinine 1.44 H Estim Creat Clear Calc 49.39 Est GFR (MDRD) Af Amer 62 Est GFR (MDRD) Non-Af 51 L BUN/Creatinine Ratio 27.1 H Glucose 217 H Lactic Acid Calcium 9.3 Troponin I High Sens 12 B-Natriuretic Peptide Urine Color Urine Clarity Urine pH Ur Specific [place] Urine Protein Urine Glucose (UA) Urine Ketones Urine Occult Blood Urine Nitrite Urine Bilirubin Urine Urobilinogen Ur Leukocyte Esterase Urine RBC Urine WBC Ur Squamous Epith Cells Amorphous Sediment Urine Bacteria Urine Mucus 02/14/22 02/14/22 02/14/22 17:14 17:14 17:36 WBC RBC Hgb Hct MCV MCH MCHC RDW Std Deviation RDW Coeff of Rafael Plt Count MPV Immature Gran % (Auto) Neut % (Auto) Lymph % (Auto) [place] % (Auto) Eos % (Auto) Baso % (Auto) Absolute Neuts (auto) Absolute Lymphs (auto) Nucleated RBC % D-Dimer Quant (PE/DVT) Sodium Potassium Chloride Carbon Dioxide Anion Gap BUN Creatinine Estim Creat Clear Calc Est GFR (MDRD) Af Amer Est GFR (MDRD) Non-Af BUN/Creatinine Ratio Glucose Lactic Acid 1.0 Calcium Troponin I High Sens B-Natriuretic Peptide 204.9 H Urine Color Yellow Urine Clarity Sl. Cloudy Urine pH 5.0 Ur Specific [place] 1.015 Urine Protein 30 H Urine Glucose (UA) Normal Urine Ketones Negative Urine Occult Blood 25 H Urine Nitrite Negative Urine Bilirubin Negative Urine Urobilinogen Normal Ur Leukocyte Esterase 500 H Urine RBC 5-10 SEEN Urine WBC 50-100 SEEN Ur Squamous Epith Cells 0-5 SEEN Amorphous Sediment 1+ URATE Urine Bacteria RARE Urine Mucus 0 SEEN Radiography Diagnostic Testing: Clinical Impression(s) from Imaging Studies Brain CT 02/14/22 16:56 IMPRESSION: There are no acute intracranial findings. Electronically Signed: Moo Yanes MD at 17:42 EST , Chest X-Ray 02/14/22 17:10 IMPRESSION: There is bilateral infiltrate. Electronically Signed: Moo Yanes MD at 17:39 EST , Chest CTA 02/14/22 17:52 IMPRESSION: 1. Resolution of the pleural effusions. 2. No demonstrated pulmonary embolism or arterial dissection. 3. Mucous, fluid, or debris noted in the right and left bronchus. This may suggest an aspiration pneumonia. This is worse than the prior study. Electronically Signed: Moo Yanes MD at 18:48 EST , Rhythm Strip Rhythm Strip: Sinus Rhythm Rate: 85 Ectopy: None EKG Initial EKG: Attestation: I personally reviewed and interpreted this EKG as follows: Interpretation: No Acute Injury Pattern and Sinus Arrythmia (Otherwise normal EKG) Discharge Plan Dx/Rx/DC Orders Clinical Impression: Hypoxemia, Bilateral pneumonia, Debility, Acute encephalopathy Disposition Disposition: Acute Care Hospital [facility]
--- NOTE | 2022-02-14 17:10 | RAD_ITS ---
STUDY: X-RAY CHEST REASON FOR EXAM: Male, 71 years old. hypoxemia, chronic cough TECHNIQUE: XR Chest 1 View COMPARISON: 12.08.21 FINDINGS: There is atherosclerotic calcification of the aortic arch with tortuosity. There are diffuse degenerative changes of the visualized thoracic spine. There is degenerative osteoarthritis of the bilateral shoulders. There is no demonstrated pleural abnormality. There is bilateral infiltrate. There are multiple median sternotomy wires. Normal size heart. Normal mediastinum and sho. Normal visualized pulmonary arteries. There is no demonstrated abnormality of the visualized soft tissue structures of the upper abdomen. RAD/Chest 1 View (Portable) IMPRESSION: There is bilateral infiltrate. Electronically Signed: Moo Yanes MD at 17:39 EST ,
[2022-02-14 17:28] LABS: Absolute Lymphocyte Count 1.28 X10^3/uL (0.83-4.51); Absolute Neutrophil Count 7.6 X10^3/uL (2.0-7.7); Basophil# 0.05 X10^3/uL; Basophil% 0.5 % (0-1); Eosinophil# 0.15 X10^3/uL; Eosinophils% 1.4 % (0-5); Hemoglobin 10.1 g/dL (13.0-16.5); Lymphocyte # 1.28 X10^3/ul (0.83-4.51); Lymphocyte % 12.1 % (19-41); Mean Corp Hgb Conc 31.6 g/dL (32-36); Mean Corpuscular Hgb 28.1 pg (27.0-32.0); Mean Corpuscular Volume 89.1 fL (80-94); Monocyte% 13.2 % (0-10); NRBC Flagged by Analyzer 0 % (0-5); Neutrophil # 7.64 X10^3/uL (2.7-7.7); Neutrophil % 72.2 % (47-70); Platelet Count 295 K/mm3 (150-450); RBC Distribution Width CV 15.5 % (11.6-14.6); RBC Distribution Width SD 50.8 fl (35.1-43.9); Red Blood Count 3.59 M/mm3 (4.6-6.2); White Blood Count 10.6 K/mm3 (4.4-11.0)
[2022-02-14 17:43] LABS: Mucous, Urine 0 SEEN /hpf (<or=2+)
[2022-02-14] MEDS: Acetaminophen 325 MG Tablet 650 MG PO (17:43)
[2022-02-14 17:44] LABS: D-Dimer Quantitative (DVT/PE) 1.88 FEU/ug/m (0.27-0.49)
[2022-02-14 17:46] LABS: Anion Gap 4 (5-15); BUN 39 mg/dL (7-18); BUN/Creat Ratio 27.1 RATIO (10-20); Calcium,Total 9.3 mg/dL (8.5-10.1); Chloride 109 mmol/L (98-107); Creatinine, Serum 1.44 mg/dL (0.70-1.30); EST Glomerular Filtration Rate 51 mL/min (>60); Est Glom Filt Rate - Afr Amer 62 mL/min (>60); Estimated Creatinine Clearance 49.39 ml/min; Glucose 217 mg/dL (74-106); Potassium 5.1 mmol/L (3.5-5.1); Sodium Level 138 mmol/L (136-145); Troponin-I HS 12 pg/mL (3.0-78.0)
[2022-02-14 17:48] LABS: Color, Urine Yellow (Yellow); Glucose, Dipstick Normal (Normal); Ketone-Dipstick Negative (Negative); Leukocyte Esterase-Dipstick 500 /ul (Negative); Nitrite-Dipstick Negative (Negative); Occult Blood-Urine 25 /ul (Negative); Protein-Dipstick 30 mg/dl (Negative); Specific Gravity, Urine 1.015 (1.002-1.030); Urine Bilirubin Dipstick Negative (Negative); Urine Clarity Sl. Cloudy (Clear); Urine Urobilinogen Normal (Normal)
[2022-02-14 17:51] LABS: BNP,B-Type NATRIURETIC PEPTIDE 204.9 pg/mL (0-100)
--- NOTE | 2022-02-14 17:52 | CT_ITS ---
EXAM: CT ANGIOGRAPHY CHEST WITHOUT AND WITH INTRAVENOUS CONTRAST CLINICAL INDICATION: hypoxemia, elevated d-dimer, hx PE TECHNIQUE: Helically acquired angiography images were obtained of the chest without and with intravenous contrast. This CT exam was performed using one or more of the following dose reduction techniques: automated exposure control, adjustment of the mA and/or kV according to patient size, and/or use of iterative reconstruction technique. This report was created using [employer] report generation technology. MIP reconstructed images were created and reviewed. CONTRAST: IV 100mL [id number]-370 RADIATION DOSE: CTDIvol = 17.85 mGy, DLP = 497.96 mGy-cm COMPARISON: 12.08.21 FINDINGS: PULMONARY ARTERIES: No demonstrated pulmonary embolism or arterial dissection. AORTA: There is atherosclerotic calcification of the aortic arch with tortuosity and elongation of the aortic arch and descending thoracic aorta. Normal in caliber. No evidence of dissection. GREAT VESSELS OF AORTIC ARCH: Unremarkable. Normal in caliber. No evidence of dissection. LUNGS AND PLEURAL SPACES: Resolution of the pleural effusions. Mucous, fluid, or debris noted in the right and left bronchus. This may suggest an aspiration pneumonia. This is worse than the prior study. Diffuse bronchial wall thickening in the lower lobe bronchi. Left upper lobe nodule has decreased in size and is likely related to the left pneumonia. HEART: There are calcifications of the coronary arteries. MEDIASTINUM: Unremarkable. No mediastinal or hilar adenopathy. Esophagus is unremarkable. No hiatal hernia. THYROID: Unremarkable. No thyroid lesions. BONES/JOINTS: Multiple median sternotomy wires are noted consistent for cardiac surgery. There are degenerative changes of the shoulders. There are multi-level degenerative changes of the thoracic spine. No suspicious lytic or blastic abnormality. KIDNEYS AND URETERS: There is hypodensities of the right kidney. These are consistent for cysts. No follow up required. CT/CTA Chest W/WO Contrast IMPRESSION: 1. Resolution of the pleural effusions. 2. No demonstrated pulmonary embolism or arterial dissection. 3. Mucous, fluid, or debris noted in the right and left bronchus. This may suggest an aspiration pneumonia. This is worse than the prior study. Electronically Signed: Moo Yanes MD at 18:48 EST ,
[2022-02-14 18:38] LABS: Amorphous Sediment 1+ URATE; Bacteria RARE /hpf (None Seen); Red Blood Cells-Urine 5-10 SEEN /hpf (0-5); Squamous Epithelial Cells - UA 0-5 SEEN /hpf (0-5); White Blood Cells 50-100 SEEN /hpf (0-5)
--- NOTE | 2022-02-14 20:36 | PCM.HP.STD ---
HPI - General General Date of Admission: 02/14/22 Date of Service: 02/14/22 Chief Complaint: Weakness HPI Narrative SAL ALONZO, is a 71 M with a significant history of COPD on home baseline oxygen of 4 L; long-haul COVID syndrome; and non-Hodgkin's lymphoma who presents to the emergency department with weakness. Patient reported that his weakness started today. Associated with symptom is fatigue. Also Emergency Department doctor reported that per report he received patient has been confused. Emergency doctor reported that a palliative nurse on a routine home visit realized the patient's oxygen saturation was 86% on room air and then later it was 92%. However patient reports that at home he is on 4 L nasal cannula oxygen at baseline. Patient denies anorexia. He reports cough which he has improved. He reported his cough is productive for cloudy sputum. REPLACED BY [facility] Medical History Acute respiratory failure with hypoxia Allergic rhinitis Arthritis Asthma Atherosclerosis of coronary artery of [place] heart without angina pectoris Bleeding tendency Cancer Chronic bronchitis Colon polyp COPD (chronic obstructive pulmonary disease) COVID-19 in immunocompromised patient Diabetes DVT (deep venous thrombosis) (05/01/21) Essential hypertension Former smoker FTT (failure to thrive) in adult Gastritis GI bleed (04/2021) High cholesterol History of basal cell carcinoma History of pilonidal cyst History of pulmonary embolus (PE) (04/30/21) History of stress test HTN (hypertension) Hyperglycemia Nicotine dependence, cigarettes, uncomplicated Non-Hodgkin lymphoma Obesity On home oxygen therapy Physical debility Pneumonia Positive colorectal cancer screening using Cologuard test RA (rheumatoid arthritis) Rhinovirus Tobacco abuse Type 2 diabetes mellitus Ulcer 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 complications Home Medications cholecalciferol (vitamin D3) 25 mcg (1,000 unit) capsule 25 mcg PO DAILY vitamin 07/17/20 [History Last Taken 12/08/21] nitroglycerin 0.4 mg sublingual tablet (Nitrostat) 0.4 mg sublingual Q5M PRN chest pain #30 tabs 09/25/20 [Rx Last Taken Unknown] ferrous sulfate 325 mg (65 mg iron) tablet 325 mg PO BID iron supplement 04/26/21 [History Last Taken 12/08/21] ipratropium 0.5 mg-albuterol 3 mg (2.5 mg base)/3 mL nebulization soln 3 ml inhalation Q4H PRN PRN SOB &/OR WHEEZING #180 mL 06/18/21 [Rx Last Taken 10/23/21] escitalopram oxalate 10 mg tablet 10 mg PO DAILY mood 30 days #90 tabs 06/21/21 [Rx Last Taken 12/08/21] potassium chloride 10 mEq tablet,extended release(part/cryst) 10 meq PO DAILY@0800 vitamin 08/06/21 [History Last Taken 12/08/21] atorvastatin 40 mg tablet 20 mg PO QHS cholesterol 10/09/21 [History Last Taken 12/07/21] metoprolol tartrate 25 mg tablet 12.5 mg PO BID BP 10/09/21 [History Last Taken 12/08/21] mirtazapine 15 mg tablet (Remeron) 7.5 mg PO QHS sleep 12/08/21 [History Last Taken 12/07/21] pantoprazole 40 mg tablet,delayed release 40 mg PO BID reflux 12/08/21 [History Last Taken 12/08/21] aspirin 81 mg tablet,delayed release 81 mg PO DAILY 12/31/21 [History Last Taken Unknown] Allergy/AdvReac Type Severity Reaction Status Date / Time levofloxacin [From Levaquin] AdvReac Intermediate diarrhea, Verified 02/14/22 16:25 dizziness, GI upset, weakness Family History Father Arthritis Bleeding disorder Hypertension Kidney disease Cancer Skin Anemia blood clots Emphysema lung Mother Colon cancer Cancer Lung Cancer Diabetes Brother Thyroid disorder Surgical History H/O cardiac catheterization History of coronary artery stent placement (10/22/13) History of embolic filter insertion History of excision of pilonidal cyst History of heart artery stent History of thymectomy Hx of lymph node excision Presence of IVC filter (04/2021) Status post cardiac surgery Social History household members: spouse Smoking Status: Former smoker second hand exposure: Yes quit status: considering quitting alcohol intake: current alcohol intake frequency: holidays/special occasions only substance use type: does not use caffeine: Yes Type: coffee Number of servings: 3 what type of physical activity do you participate in: none frequency: does not exercise seatbelt use: always ROS ROS Narrative Pertinent positives and pertinent negatives as noted in HPI. All other systems were reviewed and are negative Vital Signs Vital Signs Vital Signs: 02/14/22 16:26 02/14/22 16:33 02/14/22 16:33 Temperature 99.8 F H Temperature Source Oral Pulse Rate 85 81 Respiratory Rate 19 H 21 H Respiratory Effort Normal Respiratory Depth Normal Respiratory Pattern Normal Blood Pressure 107/77 114/60 Blood Pressure Mean 87 78 Pulse Ox 93 93 Oxygen Delivery Method Nasal Cannula Nasal Cannula Nasal Cannula Oxygen Flow Rate (L/min) 4 4 4 02/14/22 17:38 02/14/22 18:32 02/14/22 18:35 Temperature 99.2 F H Temperature Source Oral Pulse Rate 75 76 Respiratory Rate 21 H 16 Respiratory Effort Respiratory Depth Respiratory Pattern Blood Pressure 98/54 L 98/54 L Blood Pressure Mean 68 68 Pulse Ox 97 97 Oxygen Delivery Method Nasal Cannula Room Air Nasal Cannula Oxygen Flow Rate (L/min) 4 4 4 02/14/22 19:43 02/14/22 20:18 Temperature 98.2 F Temperature Source Temporal Pulse Rate 74 71 Respiratory Rate 16 21 H Respiratory Effort Respiratory Depth Respiratory Pattern Blood Pressure 103/56 L 104/55 L Blood Pressure Mean 71 71 Pulse Ox 97 96 Oxygen Delivery Method Nasal Cannula Nasal Cannula Oxygen Flow Rate (L/min) 4 4 Weight Weight: 90.2 kg Body Mass Index (BMI) 27.7 Physical Exam Narrative Physical exam: General: Well-nourished, well-developed. Head: Normocephalic, atraumatic, no tenderness Eyes: Vision is grossly intact. EOMI ENT, no trauma, moist mucous membranes, no rhinorrhea Neck: Nontender, No thyromegaly. CVS: Regular rate and rhythm. S1-S2 present. No murmur, gallop or rub. Respiratory : Bibasilar rales, chest wall nontender. Abdomen: Soft, nontender, nondistended, normal bowel sounds, no masses : Deferred Back: Nontender, no CVA tenderness. Extremities: Nontender full range of motion, no trauma Skin: Normal color, no trauma, abrasions Neuro: Alert, oriented, cranial nerves II through XII grossly intact. Psychiatry: Normal mood. Normal affect. Not depressed. Not anxious. Results Lab / Micro Data Result Diagrams: 02/15/22 04:41 02/15/22 04:41 Labs: Laboratory Results - last 24 hr 02/14/22 17:14: WBC 10.6, RBC 3.59 L, Hgb 10.1 L, Hct 32.0 L, MCV 89.1, MCH 28.1, MCHC 31.6 L, RDW Std Deviation 50.8 H, RDW Coeff of Rafael 15.5 H, Plt Count 295, MPV 10.0, Immature Gran % (Auto) 0.600, Neut % (Auto) 72.2 H, Lymph % (Auto) 12.1 L, Wolfe % (Auto) 13.2 H, Eos % (Auto) 1.4, Baso % (Auto) 0.5, Absolute Neuts (auto) 7.6, Absolute Lymphs (auto) 1.28, Nucleated RBC % 0 02/14/22 17:14: D-Dimer Quant (PE/DVT) 1.88 H* 02/14/22 17:14: Sodium 138, Potassium 5.1, Chloride 109 H, Carbon Dioxide 25.0, Anion Gap 4 L, BUN 39 H, Creatinine 1.44 H, Estim Creat Clear Calc 49.39, Est GFR (MDRD) Af Amer 62, Est GFR (MDRD) Non-Af 51 L, BUN/Creatinine Ratio 27.1 H, Glucose 217 H, Calcium 9.3, Troponin I High Sens 12 02/14/22 17:14: B-Natriuretic Peptide 204.9 H 02/14/22 17:14: Lactic Acid 1.0 02/14/22 17:36: Urine Color Yellow, Urine Clarity Sl. Cloudy, Urine pH 5.0, Ur Specific [place] 1.015, Urine Protein 30 H, Urine Glucose (UA) Normal, Urine Ketones Negative, Urine Occult Blood 25 H, Urine Nitrite Negative, Urine Bilirubin Negative, Urine Urobilinogen Normal, Ur Leukocyte Esterase 500 H, Urine RBC 5-10 SEEN, Urine WBC 50-100 SEEN, Ur Squamous Epith Cells 0-5 SEEN, Amorphous Sediment 1+ URATE, Urine Bacteria RARE, Urine Mucus 0 SEEN Micro: Microbiology 02/14/22 17:23 Nasal Secretion SARS-CoV-2 & FLU Antigen (Rapid) - Final Rhythm Strip Rhythm Strip: Sinus Rhythm Rate: 85 Ectopy: None Radiology Impression Brain CT 02/14/22 16:56 IMPRESSION: There are no acute intracranial findings. Electronically Signed: Moo Yanes MD at 17:42 EST , Chest X-Ray 02/14/22 17:10 IMPRESSION: There is bilateral infiltrate. Electronically Signed: Moo Yanes MD at 17:39 EST , Chest CTA 02/14/22 17:52 IMPRESSION: 1. Resolution of the pleural effusions. 2. No demonstrated pulmonary embolism or arterial dissection. 3. Mucous, fluid, or debris noted in the right and left bronchus. This may suggest an aspiration pneumonia. This is worse than the prior study. Electronically Signed: Moo Yanes MD at 18:48 EST , Assessment & Plan Assessment/Plan (1) Bilateral pneumonia: (2) Debility: (3) Hypoxemia: PLAN: Plan Acute hypoxemic respiratory failure secondary to bilateral pneumonia Chest x-ray with bilateral opacities. I agree with radiology interpretation. Blood culture ?2 is pending Chest x-ray: Was visualized and independently interpreted and I agree with radiology interpretation. Antibiotics: Received Rocephin and azithromycin at the emergency department. Initially doxycycline and Rocephin was ordered for patient patient became more hypoxic and required Airvo. Antibiotics changed to Zosyn. Blood culture ordered emergency department follow-up DuoNeb scheduled. Albuterol as needed Legionella antigen screen and Strep antigen ordered Hypertension Blood pressure is stable Metoprolol continued. Trend blood pressure and adjust blood pressure medications. CKD stage IIIa Stable DVT prophylaxis Subcutaneous Lovenox ordered. Charges/Coding Visit Charges Inpatient E&M: 45665 In Hosp L3
[2022-02-15] VITALS (21 sets, daily range): BP systolic 102–160; BP diastolic 47–71; PULSE 64–107; RESP 16–20; TEMP 36.4–38.5; O2SAT 81–100
--- NOTE | 2022-02-15 05:05 | RAD_ITS ---
STUDY: X-RAY CHEST REASON FOR EXAM: Male, 71 years old. Increased oxygen demand and increased crackles TECHNIQUE: Single AP portable view of the chest. COMPARISON: 02/14/2022 FINDINGS: Bronchiectasis is noted in the right and left lung lower lobes. Superimposed airspace opacities are also noted in the lung bases more prominent on the left side consistent with bilateral pneumonia. There is no demonstrated pleural abnormality. Normal size heart. Normal mediastinum and sho. Normal visualized pulmonary arteries. Normal visualized aortic arch and descending thoracic aorta. There are diffuse degenerative changes of the visualized thoracic spine. There is degenerative osteoarthritis of the bilateral shoulders. There is no demonstrated abnormality of the visualized soft tissue structures of the upper abdomen. RAD/Chest 1 View (Portable) IMPRESSION: Chronic bronchiectasis in the lung bases may Bibasilar pneumonia. There has been no significant change since the previous study. Electronically Signed: Best Woodward MD at 5:39 EST ,
[2022-02-15 05:23] LABS: Absolute Lymphocyte Count 2.99 X10^3/uL (0.83-4.51); Absolute Neutrophil Count 6.1 X10^3/uL (2.0-7.7); Basophil# 0.07 X10^3/uL; Basophil% 0.6 % (0-1); Eosinophil# 0.33 X10^3/uL; Hematocrit 32.8 % (40-54); Hemoglobin 10.5 g/dL (13.0-16.5); Lymphocyte # 2.99 X10^3/ul (0.83-4.51); Lymphocyte % 26.8 % (19-41); Mean Corpuscular Hgb 28.5 pg (27.0-32.0); Mean Corpuscular Volume 89.1 fL (80-94); Mean Platelet Vol. 10.6 fl (6.2-12.0); Monocyte# 1.59 X10^3/uL; Monocyte% 14.3 % (0-10); NRBC Flagged by Analyzer 0 % (0-5); Neutrophil # 6.06 X10^3/uL (2.7-7.7); Neutrophil % 54.4 % (47-70); POSITIVE DIFFERENTIAL YES; Platelet Count 357 K/mm3 (150-450); RBC Distribution Width CV 15.2 % (11.6-14.6); RBC Distribution Width SD 49.6 fl (35.1-43.9); Red Blood Count 3.68 M/mm3 (4.6-6.2); White Blood Count 11.1 K/mm3 (4.4-11.0)
[2022-02-15 05:26] LABS: Differential Indicated SCAN CRITERIA MET
[2022-02-15] MEDS: Acetaminophen 325 MG Tablet 650 MG PO (05:40)
[2022-02-15 05:50] LABS: Anion Gap 7 (5-15); BUN 34 mg/dL (7-18); BUN/Creat Ratio 25.8 RATIO (10-20); Calcium,Total 9.3 mg/dL (8.5-10.1); Chloride 107 mmol/L (98-107); Creatinine, Serum 1.32 mg/dL (0.70-1.30); Differential Comment SCANNED; EST Glomerular Filtration Rate 57 mL/min (>60); Est Glom Filt Rate - Afr Amer 69 mL/min (>60); Estimated Creatinine Clearance 53.88 ml/min; Glucose 161 mg/dL (74-106); Potassium 4.1 mmol/L (3.5-5.1); Sodium Level 139 mmol/L (136-145)
[2022-02-15] MEDS: 0.9% Saline Lock 10 ML Syringe IV ×2 (06:44→20:53)
[2022-02-15] MEDS: Ipratropium/Albuterol Sulfate 3 ML AMPUL.NEB INHALATION ×4 (07:44→19:11)
[2022-02-15] MEDS: Aspirin E.C. 81 MG Tablet PO (08:43)
[2022-02-15] MEDS: Potassium Chloride Oral Tablet 10 MEQ PO (08:44)
[2022-02-15] MEDS: Escitalopram Oxalate 10 MG Tablet PO (08:44)
[2022-02-15] MEDS: Metoprolol Tartrate 25 MG Tablet 12.5 MG PO ×2 (08:44→20:56)
[2022-02-15] MEDS: Pantoprazole Sodium 40 MG Tablet PO ×2 (08:47→20:55)
[2022-02-15] MEDS: Enoxaparin 40 MG/0.4 ML Syringe SC (08:47)
[2022-02-15] MEDS: Cholecalciferol (VIT D3) 25 MCG TABLET (1,000 UNITS) PO (08:47)
[2022-02-15 09:42] LABS: M R Staph aureus DNA By PCR Negative (Negative); Probe Check PASS; Specimen Processing Control PASS
--- NOTE | 2022-02-15 11:30 | CON.PCM.CC_ITS ---
Assessment & Plan Assessment/Plan (1) Acute on chronic respiratory failure with hypoxemia: (2) Chronic obstructive pulmonary disease: QUALIFIERS: COPD type: unspecified COPD Qualified Code(s): J44.9 - Chronic obstructive pulmonary disease, unspecified PLAN: Plan RECOMMENDATIONS: 1. Add antibiotics and 5-day steroid burst 2. Continue bronchodilators. Add mucolytic 3. Wean supplemental oxygen as tolerated 4. Consider swallow evaluation 5. Walking oximetry prior to discharge IMPRESSIONS: 1.??Acute hypoxemic respiratory failure secondary to aspiration pneumonia Patient requiring Airvo to maintain saturations. Recently, patient has been doing well on room air. Patient does have a history of microaspiration's in the past, but is not currently on any limitations. Patient is reporting a potential aspiration event approximately [address] patient on a 5- day steroid burst, mucolytic and Augmentin to cover for aspiration. Pulmonary toileting and recruitment measures have been recommended. Patient will need a walking oximetry prior to discharge. Overall condition is complicated as reportedly patient does not use maintenance inhalers at this time secondary to cost. This cannot be confirmed. Patient states he was not on supplemental oxygen at home, but latest outpatient pulmonary notes are suggestive the patient should be on 3 L nasal cannula at all times. 2.??Anemia Patient has been seen by GI in the past secondary to blood loss anemia. Patient does not appear to have any ongoing blood loss per his report. Could check a fecal occult stool, but there are no indications for transfusion at this time. 3.??History of rheumatoid arthritis/history of non-Hodgkin's lymphoma/heart failure with preserved ejection fraction/chronic tobacco dependency Complicates care, management, recovery and prognosis.? Renal function has been slowly worsening over previous hospitalizations. May warrant an outpatient work-up. Patient BNP is slightly elevated, but clinical stigmata are not suggestive of CHF as an etiology HPI Consult Data Date of Consult: 02/15/22 HPI Narrative Reason for Consultation: Hypoxia HPI Narrative: SAL ALONZO is a 71 M, with past medical history listed below and well-known to me from previous hospitalizations, who presents to [facility] on 02/14/2022 secondary to shortness of breath and hypoxemia. Patient reportedly had not been acting normal for the last 48 hours and became disoriented on the day prior to presentation. Patient reportedly has been on palliative care since a COVID diagnosis over a year ago. Patient's palliative nurse had visited and noted that the patient was 86%. Patient reportedly is not on supplemental oxygen at baseline. Patient had reported fatigue, but denied any shortness of breath. Patient reportedly is also had issues with GI bleed in the past, but is not reporting any recent melena or hematochezia. Patient is not anticoagulated because of this GI bleed. In the ER, patient was noted to have a temperature of 99.8 ?F and was tachypneic at 21 breaths/min. Patient was normotensive, but was requiring 4 L nasal cannula to maintain saturations. Laboratory work-up showed a white blood cell count of 10.6, hemoglobin of 10.1 and platelets of 295. D-dimer was slightly elevated. Patient was noted to have a creatinine of 1.44 with a glucose of 217 and a potassium of 5.1. Initial lactate was normal at 1 with a BNP slightly elevated at 204.9. Patient did have urate crystals noted in the urine. CT of the head showed no acute findings, but chest x-ray was suggestive of bilateral infiltrate. A CTA of the chest showed resolution of the pleural effusions, but debris noted in the left and right bronchus suggestive of an aspiration. Patient was given Rocephin and azithromycin empirically. Since admission, patient feels subjectively improved. Patient is not reporting any significant cough or shortness of breath, but is requiring Airvo to maintain saturations. On close questioning, patient does admit that he had a choking episode 2 days ago while eating chicken or hamburger, patient is not sure which. Patient believes he was able to cough out what ever got stuck. Patient is not able to provide much additional helpful information. Review of systems otherwise negative from a constitutional, HEENT, respiratory, cardiovascular, GI, genitourinary, musculoskeletal, skin, neurologic, psychiatric and hematologic system unless stated above. [facility] Medical History Acute respiratory failure with hypoxia Allergic rhinitis Arthritis Asthma Atherosclerosis of coronary artery of [place] heart without angina pectoris Bleeding tendency Cancer Chronic bronchitis Colon polyp COPD (chronic obstructive pulmonary disease) COVID-19 in immunocompromised patient Diabetes DVT (deep venous thrombosis) (05/01/21) Essential hypertension Former smoker FTT (failure to thrive) in adult Gastritis GI bleed (04/2021) High cholesterol History of basal cell carcinoma History of pilonidal cyst History of pulmonary embolus (PE) (04/30/21) History of stress test HTN (hypertension) Hyperglycemia Nicotine dependence, cigarettes, uncomplicated Non-Hodgkin lymphoma Obesity On home oxygen therapy Physical debility Pneumonia Positive colorectal cancer screening using Cologuard test RA (rheumatoid arthritis) Rhinovirus Tobacco abuse Type 2 diabetes mellitus Ulcer 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 complications Home Medications cholecalciferol (vitamin D3) 25 mcg (1,000 unit) capsule 25 mcg PO DAILY vitamin 07/17/20 [History Last Taken 12/08/21] nitroglycerin 0.4 mg sublingual tablet (Nitrostat) 0.4 mg sublingual Q5M PRN chest pain #30 tabs 09/25/20 [Rx Last Taken Unknown] ferrous sulfate 325 mg (65 mg iron) tablet 325 mg PO BID iron supplement 04/26/21 [History Last Taken 12/08/21] ipratropium 0.5 mg-albuterol 3 mg (2.5 mg base)/3 mL nebulization soln 3 ml inhalation Q4H PRN PRN SOB &/OR WHEEZING #180 mL 06/18/21 [Rx Last Taken 10/23/21] escitalopram oxalate 10 mg tablet 10 mg PO DAILY mood 30 days #90 tabs 06/21/21 [Rx Last Taken 12/08/21] potassium chloride 10 mEq tablet,extended release(part/cryst) 10 meq PO DAILY@0800 vitamin 08/06/21 [History Last Taken 12/08/21] atorvastatin 40 mg tablet 20 mg PO QHS cholesterol 10/09/21 [History Last Taken 12/07/21] metoprolol tartrate 25 mg tablet 12.5 mg PO BID BP 10/09/21 [History Last Taken 12/08/21] mirtazapine 15 mg tablet (Remeron) 7.5 mg PO QHS sleep 12/08/21 [History Last Taken 12/07/21] pantoprazole 40 mg tablet,delayed release 40 mg PO BID reflux 12/08/21 [History Last Taken 12/08/21] aspirin 81 mg tablet,delayed release 81 mg PO DAILY 12/31/21 [History Last Taken Unknown] Allergy/AdvReac Type Severity Reaction Status Date / Time levofloxacin [From Levaquin] AdvReac Intermediate diarrhea, Verified 02/14/22 16:25 dizziness, GI upset, weakness Family History Father Arthritis Bleeding disorder Hypertension Kidney disease Cancer Skin Anemia blood clots Emphysema lung Mother Colon cancer Cancer Lung Cancer Diabetes Brother Thyroid disorder Surgical History H/O cardiac catheterization History of coronary artery stent placement (10/22/13) History of embolic filter insertion History of excision of pilonidal cyst History of heart artery stent History of thymectomy Hx of lymph node excision Presence of IVC filter (04/2021) Status post cardiac surgery Social History household members: spouse Smoking Status: Former smoker second hand exposure: Yes quit status: considering quitting alcohol intake: current alcohol intake frequency: holidays/special occasions only substance use type: does not use caffeine: Yes Type: coffee Number of servings: 3 what type of physical activity do you participate in: none frequency: does not exercise seatbelt use: always ROS ROS Narrative See HPI Physical Exam Const alert, oriented x3 and no apparent distress Constitutional Narrative: On Airvo during my evaluation General Appearance: cooperative and well developed HEENT normocephalic, head/scalp atraumatic and moist oral mucous membranes Eyes PERRL, EOMs intact bilaterally, conjunctivae normal and no scleral icterus Neck full ROM and no lymphadenopathy Chest Chest: abnormal inspection of the chest increased A-P diameter Resp no use of accessory muscles Effort and Inspection: able to speak in complete sentences; Negative for actively coughing Auscultation: rales, wheezes right lower and diminished lung sounds; Negative for rhonchi Percussion: Negative for dullness Cardio regular rate, regular rhythm, S1 normal heart sound, S2 normal heart sound, no murmurs, no rub and no gallops GI normal to inspection, nondistended, normoactive bowel sounds no CVA tenderness Extremity no clubbing, cyanosis or edema Skin no rashes or lesions noted Neuro oriented x3, CN's II-XII intact bilaterally, moves all extremities and no focal motor deficits Psych cooperative and affect normal Lab / Micro Data Attestation: I reviewed the patient's lab results. Result Diagrams: 02/15/22 04:41 12/23/22 04:41 Labs: Laboratory Results - last 24 hr 02/14/22 17:14: WBC 10.6, RBC 3.59 L, Hgb 10.1 L, Hct 32.0 L, MCV 89.1, MCH 28.1, MCHC 31.6 L, RDW Std Deviation 50.8 H, RDW Coeff of Rafael 15.5 H, Plt Count 295, MPV 10.0, Immature Gran % (Auto) 0.600, Neut % (Auto) 72.2 H, Lymph % (Auto) 12.1 L, [place] % (Auto) 13.2 H, Eos % (Auto) 1.4, Baso % (Auto) 0.5, Absolute Neuts (auto) 7.6, Absolute Lymphs (auto) 1.28, Nucleated RBC % 0 02/14/22 17:14: D-Dimer Quant (PE/DVT) 1.88 H* 02/14/22 17:14: Sodium 138, Potassium 5.1, Chloride 109 H, Carbon Dioxide 25.0, Anion Gap 4 L, BUN 39 H, Creatinine 1.44 H, Estim Creat Clear Calc 49.39, Est GFR (MDRD) Af Amer 62, Est GFR (MDRD) Non-Af 51 L, BUN/Creatinine Ratio 27.1 H, Glucose 217 H, Calcium 9.3, Troponin I High Sens 12 02/14/22 17:14: B-Natriuretic Peptide 204.9 H 02/14/22 17:14: Lactic Acid 1.0 02/14/22 17:36: Urine Color Yellow, Urine Clarity Sl. Cloudy, Urine pH 5.0, Ur Specific [place] 1.015, Urine Protein 30 H, Urine Glucose (UA) Normal, Urine Ketones Negative, Urine Occult Blood 25 H, Urine Nitrite Negative, Urine Bilirubin Negative, Urine Urobilinogen Normal, Ur Leukocyte Esterase 500 H, Urine RBC 5-10 SEEN, Urine WBC 50-100 SEEN, Ur Squamous Epith Cells 0-5 SEEN, Amorphous Sediment 1+ URATE, Urine Bacteria RARE, Urine Mucus 0 SEEN 02/15/22 04:41: WBC 11.1 H, RBC 3.68 L, Hgb 10.5 L, Hct 32.8 L, MCV 89.1, MCH 28 .5, MCHC 32.0, RDW Std Deviation 49.6 H, RDW Coeff of [place] 15.2 H, Plt Count 357, MPV 10.6, Immature Gran % (Auto) 0.900, Neut % (Auto) 54.4, Lymph % (Auto) 26.8, [place] % (Auto) 14.3 H, Eos % (Auto) 3.0, Baso % (Auto) 0.6, Absolute Neuts (auto) 6.1, Absolute Lymphs (auto) 2.99, Nucleated RBC % 0, Differential Comment SCANNED, Diff Path Review June02/15/22 04:41: Sodium 139, Potassium 4.1, Chloride 107, Carbon Dioxide 25.0, Anion Gap 7, BUN 34 H, Creatinine 1.32 H, Estim Creat Clear Calc 53.88, Est GFR (MDRD) Af Amer 69, Est GFR (MDRD) Non-Af 57 L, BUN/Creatinine Ratio 25.8 H, Glucose 161 H, Calcium 9.3 02/15/22 07:08: MRSA (PCR) Negative Micro: Microbiology 02/14/22 17:36 Urine, Clean Catch Urine Culture - Preliminary Culture exhibits no growth. 02/14/22 17:36 Urine, Clean Catch Legionella Antigen - Final 02/14/22 17:36 Urine, Clean Catch Streptococcus pneumoniae Antigen (M - Final 02/14/22 17:23 Nasal Secretion SARS-CoV-2 & FLU Antigen (Rapid) - Final Rhythm Strip Rhythm Strip: Sinus Rhythm Rate: 85 Ectopy: None Radiology Impression Brain CT 02/14/22 16:56 IMPRESSION: There are no acute intracranial findings. Electronically Signed: Moo Yanes MD at 17:42 EST , Chest X-Ray 02/14/22 17:10 IMPRESSION: There is bilateral infiltrate. Electronically Signed: Moo Yanes MD at 17:39 EST , Chest CTA 02/14/22 17:52 IMPRESSION: 1. Resolution of the pleural effusions. 2. No demonstrated pulmonary embolism or arterial dissection. 3. Mucous, fluid, or debris noted in the right and left bronchus. This may suggest an aspiration pneumonia. This is worse than the prior study. Electronically Signed: Moo Yanes MD at 18:48 EST , Chest X-Ray 02/15/22 05:05 IMPRESSION: Chronic bronchiectasis in the lung bases may Bibasilar pneumonia. There has been no significant change since the previous study. Electronically Signed: Best Woodward MD at 5:39 EST , Charges/Coding Visit Charges Inpatient E&M: 08117 Init Hosp L3
--- NOTE | 2022-02-15 13:00 | CASEMGMT ---
Addendum entered by Ros Camairllo 02/15/22 15:49: [facility] accepted pt. Green sheet on chart. RN QUANG in to pt room to make aware. Pt still denying the need for therapy and will notify HH if he changes his mind once home. Addendum entered by Ros Camarillo 02/15/22 13:27: Made pt aware that therapy is recommending further home health therapy, pt declines and is only wanting nursing currently. Original Note: RN QUANG Assessment: Face to Face with pt for initial transition planning/care coordination assessment. RN QUANG introduced self and role at [facility], pt voices understanding and consents to assessment. Pt is A/O x4 and answers all questions appropriately at this time. Pt sitting up in chair with airvo on eating lunch in no distress. Care providers, pharmacy, and demographics verified/updated. Admitting Dx: bilat pna PCP:Dannielle Piña Specialists:Mani, lara; Benny, onc Preferred Pharmacy: [facility] Insurance: [facility] Prescription Benefit: yes LNOK: Ca Ricketts, ; Ray Quintana, son Living Arrangements: Pt lives with in a single story house with 2 steps to enter with a rail. Pt reports he is mostly I in ADL's and denies concerns at home. Transportation: Pt provides transportation. DME/HHC/SNF: Pt has oxygen through [employer] at 4L cont per report with portable tanks. Pt has a BGM with supplies that he just replenished. Pt has a shower chair, toilet riser, hospital bed, rollator, cane and FWW. Pt reports [facility] just dc'd him from services last week. He states he graduated from a FWW to a cane as well. States he did a shower on own for the first time in a long time last week and it went well although his is available to assist. Pt denies SNF stays. Pt states no concerns with going home at time of dc. He states he would be interested in [facility] coming back out for SN to see him and monitor him respiratory navas. He declines a list of other available agencies. Pt is active with [facility] as well. Referral sent to [facility]. Pt states no further concerns/needs. CM to follow. Advised pt to ask CM if any further question/concerns/needs arise, voices understanding. Pt Goal: Home with HHC Plan: Home with HHC
[2022-02-15] MEDS: Ferrous Sulfate 325 MG Tablet PO ×2 (13:58→16:48)
[2022-02-15] MEDS: predniSONE 20 MG Tablet 40 MG PO (13:59)
[2022-02-15 14:12] LABS: Pathologist Review Reviewed
--- NOTE | 2022-02-15 15:04 | PCM.PN.HOSP ---
Subjective Subjective Follow-up on acute hypoxic respiratory failure/acute pneumonia: Patient was seen and examined. He remains on Airvo, 40 L, 48% FiO2. Denies any fever or chills. Objective Data Objective Data Vital Signs: Vital Signs Temp Pulse Resp BP Pulse Ox O2 Del Method O2 Flow Rate 98.5 F 95 16 112/47 L 100 Airvo 40 02/15/22 07:28 02/15/22 11:05 02/15/22 11:05 02/15/22 07:28 02/15/22 10:43 02/15/22 09:57 02/15/22 10:43 FiO2 45 02/15/22 11:05 Oxygen Flow Rate (L/min) 40 Oxygen Delivery Method Airvo Weight: 87.4 kg Body Mass Index (BMI) 26.9 Intake & Output: Intake and Output for Last 24 Hours 02/13/22 02/14/22 02/15/22 23:59 23:59 23:59 Intake Total 805 / 805 100.25 / 100.25 Output Total 150 / 150 400 / 400 Balance 655 / 655 -299.75 / -299.75 Lab / Micro Data Result Diagrams: 02/15/22 04:41 02/15/22 04:41 Labs: Laboratory Results - last 24 hr 02/14/22 17:14: WBC 10.6, RBC 3.59 L, Hgb 10.1 L, Hct 32.0 L, MCV 89.1, MCH 28.1, MCHC 31.6 L, RDW Std Deviation 50.8 H, RDW Coeff of Rafael 15.5 H, Plt Count 295, MPV 10.0, Immature Gran % (Auto) 0.600, Neut % (Auto) 72.2 H, Lymph % (Auto) 12.1 L, [place] % (Auto) 13.2 H, Eos % (Auto) 1.4, Baso % (Auto) 0.5, Absolute Neuts (auto) 7.6, Absolute Lymphs (auto) 1.28, Nucleated RBC % 0 02/14/22 17:14: D-Dimer Quant (PE/DVT) 1.88 H* 02/14/22 17:14: Sodium 138, Potassium 5.1, Chloride 109 H, Carbon Dioxide 25.0, Anion Gap 4 L, BUN 39 H, Creatinine 1.44 H, Estim Creat Clear Calc 49.39, Est GFR (MDRD) Af Amer 62, Est GFR (MDRD) Non-Af 51 L, BUN/Creatinine Ratio 27.1 H, Glucose 217 H, Calcium 9.3, Troponin I High Sens 12 02/14/22 17:14: B-Natriuretic Peptide 204.9 H 02/14/22 17:14: Lactic Acid 1.0 02/14/22 17:36: Urine Color Yellow, Urine Clarity Sl. Cloudy, Urine pH 5.0, Ur Specific [place] 1.015, Urine Protein 30 H, Urine Glucose (UA) Normal, Urine Ketones Negative, Urine Occult Blood 25 H, Urine Nitrite Negative, Urine Bilirubin Negative, Urine Urobilinogen Normal, Ur Leukocyte Esterase 500 H, Urine RBC 5-10 SEEN, Urine WBC 50-100 SEEN, Ur Squamous Epith Cells 0-5 SEEN, Amorphous Sediment 1+ URATE, Urine Bacteria RARE, Urine Mucus 0 SEEN 02/15/22 04:41: WBC 11.1 H, RBC 3.68 L, Hgb 10.5 L, Hct 32.8 L, MCV 89.1, MCH 28.5, MCHC 32.0, RDW Std Deviation 49.6 H, RDW Coeff of [place] 15.2 H, Plt Count 357, MPV 10.6, Immature Gran % (Auto) 0.900, Neut % (Auto) 54.4, Lymph % (Auto) 26.8, [place] % (Auto) 14.3 H, Eos % (Auto) 3.0, Baso % (Auto) 0.6, Absolute Neuts (auto) 6.1, Absolute Lymphs (auto) 2.99, Nucleated RBC % 0, Differential Comment SCANNED, Diff Path Review Reviewed 02/15/22 04:41: Sodium 139, Potassium 4.1, Chloride 107, Carbon Dioxide 25.0, Anion Gap 7, BUN 34 H, Creatinine 1.32 H, Estim Creat Clear Calc 53.88, Est GFR (MDRD) Af Amer 69, Est GFR (MDRD) Non-Af 57 L, BUN/Creatinine Ratio 25.8 H, Glucose 161 H, Calcium 9.3 02/15/22 07:08: MRSA (PCR) Negative Micro: Microbiology 02/14/22 17:36 Urine, Clean Catch Urine Culture - Preliminary Culture exhibits no growth. 02/14/22 17:36 Urine, Clean Catch Legionella Antigen - Final 02/14/22 17:36 Urine, Clean Catch Streptococcus pneumoniae Antigen (M - Final 02/14/22 17:23 Nasal Secretion SARS-CoV-2 & FLU Antigen (Rapid) - Final Radiography Diagnostic Testing: Radiology Impression Brain CT 02/14/22 16:56 IMPRESSION: There are no acute intracranial findings. Electronically Signed: Moo Yanes MD at 17:42 EST , Chest X-Ray 02/14/22 17:10 IMPRESSION: There is bilateral infiltrate. Electronically Signed: Moo Yanes MD at 17:39 EST , Chest CTA 02/14/22 17:52 IMPRESSION: 1. Resolution of the pleural effusions. 2. No demonstrated pulmonary embolism or arterial dissection. 3. Mucous, fluid, or debris noted in the right and left bronchus. This may suggest an aspiration pneumonia. This is worse than the prior study. Electronically Signed: Moo Yanes MD at 18:48 EST , Chest X-Ray 02/15/22 05:05 IMPRESSION: Chronic bronchiectasis in the lung bases may Bibasilar pneumonia. There has been no significant change since the previous study. Electronically Signed: Best Woodward MD at 5:39 EST , Rhythm Strip Rhythm Strip: Sinus Rhythm Rate: 85 Ectopy: None Physical Exam Narrative Physical exam: General: Alert, Oriented x3, Cooperative, in mild respiratory distress, on Airvo HEENT: Atraumatic Oral: Moist Mucosa Neck: Supple Lungs: Diminished to auscultation Cardiovascular: HS I+II, regular, no murmurs Abdomen: Bowel Sounds Present, Soft, Non Tender Extremities: No edema Skin: No rashes, No breakdown Neurological: Grossly intact Psych/Mental Status: Appropriate Assessment & Plan Assessment/Plan (1) Bilateral pneumonia: (2) Debility: (3) Hypoxemia: PLAN: Plan 1. Acute hypoxemic respiratory failure secondary to probable aspiration pneumonia Patient is on Airvo, 40 L, FiO2 48% Blood cultures are pending, Acute antigens negative. Rapid COVID-19 and influenza A/B are negative We will check respiratory panel. Pulmonology consult Continue with breathing treatments, started on prednisone and Augmentin by pulmonology 2. Hypertension/hyperlipidemia Continue with metoprolol, atorvastatin 3. Depression, continue Lexapro 4. CKD stage IIIa, creatinine is close to baseline Continue to trend 5. DVT PPx- Lovenox SC Charges/Coding Visit Charges Inpatient E&M: 87842 Subs Hosp L3
[2022-02-15] MEDS: Amox/Clavulanate 500 MG Tablet PO (16:48)
[2022-02-15] MEDS: Atorvastatin Calcium 20 MG Tablet PO (20:55)
[2022-02-15] MEDS: Mirtazapine 15 MG Tablet 7.5 MG PO (20:56)
[2022-02-16 03:28] VITALS: BP 134/76; PULSE 86; RESP 18; TEMP 36.3; O2SAT 97
[2022-02-16 03:29] VITALS: BP 134/76; PULSE 86; RESP 18; TEMP 36.3; O2SAT 97
[2022-02-16] MEDS: Ipratropium/Albuterol Sulfate 3 ML AMPUL.NEB INHALATION (06:54)
[2022-02-16 06:55] VITALS: PULSE 68; RESP 15; O2SAT 94
--- NOTE | 2022-02-16 07:48 | PN.CC_ITS ---
Assessment & Plan Assessment/Plan (1) Acute on chronic respiratory failure with hypoxemia: (2) Chronic obstructive pulmonary disease: QUALIFIERS: COPD type: unspecified COPD Qualified Code(s): J44.9 - Chronic obstructive pulmonary disease, unspecified PLAN: Plan RECOMMENDATIONS: 1. Continue Augmentin to complete 7-day treatment course. 2. Continue prednisone 40 mg daily x5 days. 3. Continue to wean supplemental oxygen as tolerated. 4. Perform walking oximetry study prior to consideration for discharge home. 5. The patient is currently scheduled to follow-up in the pulmonary medicine clinic on February 27. 6. The patient is medically stable for discharge home from my perspective. IMPRESSIONS: 1.??Acute hypoxemic respiratory failure secondary to aspiration pneumonia The patient presented to the hospital with an acute COPD exacerbation likely secondary to an aspiration event. The patient has improved significantly from a respiratory perspective and is maintaining oxygen saturations on 2 L/min via na fabiano cannula. Given the aforementioned, it is reasonable to place the patient on Augmentin to complete a 7-day treatment course. I would recommend that he be discharged home on prednisone 40 mg daily x5 days. The patient is currently scheduled to follow-up in the pulmonary medicine clinic on February 27. He is otherwise stable to be discharged home from my perspective. 2.??History of rheumatoid arthritis/history of non-Hodgkin's lymphoma/heart failure with preserved ejection fraction/chronic tobacco dependency Complicates care, management, recovery and prognosis.? Continue supportive measures noted above. This note was generated with [employer] dictation software. It may contain incorrect words, spelling, and punctuation that were not noted in checking the note before signing. Subjective Subjective The patient was seen and examined at the bedside this morning. Events from the last 24 hours have been reviewed. The patient is currently afebrile, hemodynamically stable and maintaining appropriate oxygen saturations on 2 L/min via nasal cannula. The patient feels well this morning denies any resting shortness of breath. He reported that he typically utilizes 4 L/min of oxygen at his baseline. Objective Data Objective Data The patient's most recent lab work, culture data and imaging studies have all b een personally reviewed. Infectious work-up has been unrevealing to date. Vital Signs: Vital Signs Temp Pulse Resp BP Pulse Ox O2 Del Method O2 Flow Rate 97.4 F L 68 15 134/76 H 94 Nasal Cannula 2 02/16/22 03:29 02/16/22 06:55 02/16/22 06:55 02/16/22 03:29 02/16/22 06:55 02/16/22 06:55 02/16/22 06:55 FiO2 45 02/15/22 11:05 Oxygen Flow Rate (L/min) 2 Oxygen Delivery Method Nasal Cannula Weight: 192 lb 10.944 oz Body Mass Index (BMI) 26.9 Intake & Output: Intake and Output for Last 24 Hours 02/14/22 02/15/22 02/16/22 23:59 23:59 23:59 Intake Total 805 / 805 100.25 / 100.25 Output Total 150 / 150 1100 / 1100 500 / 500 Balance 655 / 655 -999.75 / -999.75 -500 / -500 Lab / Micro Data Attestation: I reviewed the patient's lab results. Result Diagrams: 02/15/22 04:41 02/15/22 04:41 Labs: Laboratory Results - last 24 hr 02/15/22 04:41: Diff Path Review Reviewed 02/15/22 07:08: MRSA (PCR) Negative Micro: Microbiology 02/15/22 14:00 Mucosa - Nasopharyngeal Respiratory Panel (PCR) - Final 02/14/22 17:36 Urine, Clean Catch Urine Culture - Preliminary Culture exhibits no growth. 02/14/22 17:36 Urine, Clean Catch Legionella Antigen - Final 02/14/22 17:36 Urine, Clean Catch Streptococcus pneumoniae Antigen (M - Final 02/14/22 17:23 Nasal Secretion SARS-CoV-2 & FLU Antigen (Rapid) - Final Rhythm Strip Rhythm Strip: Sinus Rhythm Rate: 85 Ectopy: None Physical Exam Const alert, oriented x3 and no apparent distress General Appearance: cooperative HEENT normocephalic, head/scalp atraumatic and moist oral mucous membranes Eyes PERRL, EOMs intact bilaterally and conjunctivae normal Neck supple General: trachea midline Resp normal respiratory effort Auscultation: diminished lung sounds; Negative for rales, rhonchi or wheezes Cardio regular rate and regular rhythm GI normal to inspection, nondistended, normoactive bowel sounds Extremity no clubbing, cyanosis or edema Skin no rashes or lesions noted Neuro CN's II-XII intact bilaterally, moves all extremities and no focal motor deficits Psych cooperative and affect normal Charges/Coding Visit Charges Inpatient E&M: 54434 Subs Hosp L2
[2022-02-16 09:00] VITALS: BP 121/67; PULSE 83; RESP 18; TEMP 37; O2SAT 93
--- NOTE | 2022-02-16 09:02 | PCM.DC.SUM ---
Providers Date of Admission: 02/14/22 Date of Discharge: 02/16/22 Primary Care Physician: SORIN MCKENZIE Consultations 02/15/22 08:07 Consult: Sales Engineering Manager / Pulmonary Medicine Routine Consulting Provider: Pulmonary Medicine yoselin [place] Reason for Consult: Resp failure EMERGENT Consult: No MD Notified: Yes Date Notified: 02/15/22 Time Notified: 08:07 Method of Notification: Text Reason For Visit: BILATERAL PNEUMONIA Diagnosis Discharge Diagnosis (1) Acute on chronic respiratory failure with hypoxemia: Status: Chronic Code(s): J96.21 - Acute and chronic respiratory failure with hypoxia (2) Chronic obstructive pulmonary disease: Status: Chronic Code(s): J44.9 - Chronic obstructive pulmonary disease, unspecified Qualifiers: COPD type: unspecified COPD Qualified Code(s): J44.9 - Chronic obstructive pulmonary disease, unspecified Medications at Discharge Home Medications cholecalciferol (vitamin D3) 25 mcg (1,000 unit) capsule 25 mcg PO DAILY vitamin 07/17/20 nitroglycerin 0.4 mg sublingual tablet (Nitrostat) 0.4 mg sublingual Q5M PRN chest pain #30 tabs 09/25/20 ferrous sulfate 325 mg (65 mg iron) tablet 325 mg PO BID iron supplement 04/26/21 ipratropium 0.5 mg-albuterol 3 mg (2.5 mg base)/3 mL nebulization soln 3 ml inhalation Q4H PRN PRN SOB &/OR WHEEZING #180 mL 06/18/21 escitalopram oxalate 10 mg tablet 10 mg PO DAILY mood 30 days #90 tabs 06/21/21 potassium chloride 10 mEq tablet,extended release(part/cryst) 10 meq PO DAILY@0800 vitamin 08/06/21 atorvastatin 40 mg tablet 20 mg PO QHS cholesterol 10/09/21 metoprolol tartrate 25 mg tablet 12.5 mg PO BID BP 10/09/21 mirtazapine 15 mg tablet (Remeron) 7.5 mg PO QHS sleep 12/08/21 pantoprazole 40 mg tablet,delayed release 40 mg PO BID reflux 12/08/21 aspirin 81 mg tablet,delayed release 81 mg PO DAILY 12/31/21 amoxicillin 500 mg-potassium clavulanate 125 mg tablet 500 mg PO BIDCM 7 days #12 tabs 12/24/22 prednisone 20 mg tablet 40 mg PO BREAKFAST 5 days #10 tabs 02/16/22 Hospital Course Summary of Care Provided Minutes Spent on Discharge: 35 Hospital Course: Patient is a 71-year-old gentleman admitted with shortness of breath diagnosed with acute hypoxemic respiratory failure secondary to probable aspiration pneumonia placed initially on Airvo weaned down to nasal cannula 1. Acute hypoxemic respiratory failure Secondary to probable aspiration pneumonia patient was initially managed on noninvasive ventilationAirvo, which was later weaned down to nasal cannula Case discussed with patient's combination machine tool setter Dr. Singleton decision was made to discharge patient home 2.? COPD exacerbation ? Mild exacerbation 3.? Anemia ? Secondary to acute on chronic blood loss anemia monitored H&H 4.? Chronic hypoxic respiratory failure ? Secondary to suspected pulmonary fibrosis from prior COVID-19 infection.? Patient currently on supplemental oxygen 5.? 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 Previously treated with apixaban.? Patient did not tolerate apixaban as a result of GI bleed he underwent IVC filter placement on 05/02/2021 6.? Diabetes mellitus type II Managed with diet 7.? Rheumatoid arthritis Patient previously treated with rituximab as outpatient 8.? Non Hodgkin's lymphoma ?Apparently in remission 9.? Coronary artery disease ?With previous PCI of an LAD RCA and mid circumflex lesions 10.? Dyslipidemia -Patient is on statin therapy, continued at home dose 11.? Hypertension -Per history currently not on any antihypertensives 12.? Depression ? Patient is on SSRI 13 DVT prophylaxis ?SCDs Physical Exam Narrative GENERAL: cooperative HEENT: Atraumatic; normocephalic EYES; Anicteric, Normal Conjunctiva NECK; supple, normal thyroid, RESPIRATORY: Diminished to auscultation CARDIOVASCULAR: Regular S1 S2, GI: soft, normoactive bowel sounds, : No Renal angle tenderness; EXTREMITIES: No edema, no clubbing, MUSCULOSKELETAL: no muscle wasting NEURO: Awake; no lateralizing signs. SKIN: No Rash PSYCH; Flat affect Weight / BMI Weight Weight: 87.4 kg Body Mass Index (BMI) 26.9 ABG / Lab / Microbiology Data Result Diagrams: 02/15/22 04:41 02/15/22 04:41 Laboratory: Laboratory Results - last 24 hr 02/15/22 04:41: Diff Path Review Reviewed 02/15/22 07:08: MRSA (PCR) Negative Microbiology: Microbiology 02/15/22 14:00 Mucosa - Nasopharyngeal Respiratory Panel (PCR) - Final 02/14/22 17:36 Urine, Clean Catch Urine Culture - Preliminary Culture exhibits no growth. 02/14/22 17:36 Urine, Clean Catch Legionella Antigen - Final 02/14/22 17:36 Urine, Clean Catch Streptococcus pneumoniae Antigen (M - Final 02/14/22 17:23 Nasal Secretion SARS-CoV-2 & FLU Antigen (Rapid) - Final D/C Instructions Discharge Diet: 1800 Calorie Control Diet Discharge Activity: Return to Normal Activity Call your doctor if you observe: Fever of 101 or Higher, Shortness of breath, Fainting spells and Chest pain Meaningful Use Info Meaningful Use Diagnoses (Choose all that apply): None applicable Discharge Plan Admission Admit Date/Time: 02/14/22 20:29 Attending Provider: Jordan Ortiz Primary Care Provider: OLEG ELIZONDO Consulting Providers: Tobi Shannon ; Alexi Roblero ; Anthony Singleton ; Rambo Bruner ; Afshin Pablo ; More Pulido MORTGAGE ANALYST ; Suze Rosas Discharge Orders/Prescriptions Prescriptions: New prednisone 20 mg Tablet 40 mg PO BREAKFAST 5 Days Qty: 10 0RF amoxicillin-pot clavulanate 500-125 mg Tablet 500 mg PO BIDCM 7 Days Qty: 12 0RF Continued cholecalciferol (vitamin D3) 25 mcg (1,000 unit) capsule 25 mcg PO DAILY nitroglycerin [Nitrostat] 0.4 mg tablet, sublingual 0.4 mg SUBLINGUAL Q5M PRN (Reason: chest pain) Qty: 30 0RF Rx Instructions: until response; do not exceed 3 doses per episode metoprolol tartrate 25 mg tablet 12.5 mg PO BID ferrous sulfate 325 mg (65 mg iron) tablet 325 mg PO BID potassium chloride 10 mEq tablet,ER particles/crystals 10 meq PO DAILY@0800 atorvastatin 40 mg tablet 20 mg PO QHS aspirin 81 mg Tablet,Delayed Release (Dr/Ec) 81 mg PO DAILY pantoprazole 40 mg tablet,delayed release (DR/EC) 40 mg PO BID mirtazapine [Remeron] 15 mg tablet 7.5 mg PO QHS ipratropium-albuterol 0.5 mg-3 mg(2.5 mg base)/3 mL solution for nebulization 3 ml inhalation Q4H PRN PRN (Reason: SOB &/OR WHEEZING) Qty: 180 6RF escitalopram oxalate 10 mg tablet 10 mg PO DAILY 30 Days Qty: 90 3RF Referrals / Follow Up: OLEG ELIZONDO NP-C [Primary Care Provider] - Within 1 Week Disposition Disposition (needs filled in before D/C Order can be placed): Home Health Service Charges/Coding Visit Charges Inpatient E&M: 49005 Disch Hosp
[2022-02-16] MEDS: Potassium Chloride Oral Tablet 10 MEQ PO (09:10)
[2022-02-16] MEDS: predniSONE 20 MG Tablet 40 MG PO (09:10)
[2022-02-16] MEDS: Amox/Clavulanate 500 MG Tablet PO (09:10)
[2022-02-16] MEDS: Aspirin E.C. 81 MG Tablet PO (09:11)
[2022-02-16] MEDS: Pantoprazole Sodium 40 MG Tablet PO (09:11)
[2022-02-16] MEDS: Escitalopram Oxalate 10 MG Tablet PO (09:11)
[2022-02-16 09:12] VITALS: PULSE 83
[2022-02-16] MEDS: Metoprolol Tartrate 25 MG Tablet 12.5 MG PO (09:12)
[2022-02-16] MEDS: Enoxaparin 40 MG/0.4 ML Syringe SC (09:13)
[2022-02-16] MEDS: Cholecalciferol (VIT D3) 25 MCG TABLET (1,000 UNITS) PO (09:13)
[2022-02-16 09:25] VITALS: BP 121/67; PULSE 83; RESP 18; TEMP 37; O2SAT 93
== END 2022-02-16 11:54 | disposition home health service (06) | DRG 177 ==
LOC: ED 20:45 → MS3 21:23
PROVIDERS: Admitting Provider Hospitalist; Emergency Provider Emergency Medicine; PCP Nurse Practitioner Family; Visit Provider Internal Medicine
DX: J69.0 Pneumonitis due to inhalation of food and vomit (principal); J96.21 Acute and chronic respiratory failure with hypoxia; C85.90 Non-Hodgkin lymphoma, unspecified, unspecified site; I13.0 Hypertensive heart and chronic kidney disease with heart failure and stage 1 through stage 4 chronic kidney disease, or unspecified chronic kidney disease; I50.32 Chronic diastolic (congestive) heart failure; J44.1 Chronic obstructive pulmonary disease with (acute) exacerbation; D62 Acute posthemorrhagic anemia; E11.22 Type 2 diabetes mellitus with diabetic chronic kidney disease; N18.31 Chronic kidney disease, stage 3a; J84.10 Pulmonary fibrosis, unspecified; M06.9 Rheumatoid arthritis, unspecified; E78.00 Pure hypercholesterolemia, unspecified; I25.10 Atherosclerotic heart disease of native coronary artery without angina pectoris; U09.9 Post COVID-19 condition, unspecified; F32.A Depression, unspecified; Z95.5 Presence of coronary angioplasty implant and graft; Z99.81 Dependence on supplemental oxygen; Z79.82 Long term (current) use of aspirin; Z79.899 Other long term (current) drug therapy; Z86.711 Personal history of pulmonary embolism; Z87.891 Personal history of nicotine dependence
CPT/HCPCS: 36415; 70450; 71045; 71275; 80048; 81001; 83605; 83880; 84484; 85025; 85379; 87040; 87086; 87088; 87428; 87449; 87633; 87641; 93005; 94003; 94640; 94660; 97110; 97162; 97166; 99251; 99285; J7030; J7040; J7050; Q9967; A4216; G0463; J0696

== ENCOUNTER → 2022-03-09 | Outpatient (CLI) | payer MEDICARE, SELFPAY ==
[2022-03-09 11:29] LABS: Hematocrit 30.6 % (40-54); Hemoglobin 9.6 g/dL (13.0-16.5); Mean Corp Hgb Conc 31.4 g/dL (32-36); Mean Corpuscular Hgb 27.7 pg (27.0-32.0); Mean Corpuscular Volume 88.2 fL (80-94); Mean Platelet Vol. 10.8 fl (6.2-12.0); Platelet Count 265 K/mm3 (150-450); RBC Distribution Width CV 15.5 % (11.6-14.6); RBC Distribution Width SD 49.5 fl (35.1-43.9); Red Blood Count 3.47 M/mm3 (4.6-6.2); White Blood Count 5.6 K/mm3 (4.4-11.0)
== END | disposition home or self-care (01) ==
LOC: LABSPEC 11:16
PROVIDERS: PCP Nurse Practitioner Family; Visit Provider Nurse Practitioner Family
DX: D64.9 Anemia, unspecified (principal)
CPT/HCPCS: 85027

== ENCOUNTER → 2022-03-22 | Outpatient (CLI) | payer MEDICARE, SELFPAY ==
--- NOTE | 2022-03-22 15:11 | ST.MBS ---
Modified Barium Swallow - Patient Information Study Date: 03/22/22 Study Time: 12:40 Direct Billable Minutes: 113 Total Minutes procedure & reportin Diagnosis: Hx of aspiration (Z87.898), COPD (J44.9) Referring Physician: OLEG ELIZONDO Reason for Referral: Objectively assess swallow function, assess risk for aspiration, and determine recommendations for least restrictive diet textures and compensatory strategies to improve safety of swallow. Medical History: The patient is a 71-year old male with PMH significant for acute respiratory failure with hypoxia, asthma, Non-Hodgkin lymphoma, PNA, COPD, diabetes, DVT, GI bleed, hx of PE (04/30/2021) (SEE EMR for full PMH). Patient has a history of dysphagia and is familiar to this speech department. Most recently he was seen at [facility] from 05/05/2021-05/17/2021 with discharge recommendations for soft and bites size textures / thin liquids, small sips one at a time amongst other aspiration precautions. Pt had participated in MBSS during that stay on 05/08/2021, which revealed SILENT aspiration of thin liquids via large cup sip, sequential sips by cup, cup sip with chin tuck. Since discharge from TCU, pt has been following with [facility]; however, he was referred for repeat MBSS due to recurring PNAs. reports the patient has had PNA almost monthly for the past year. Current Diet Ordered: Regular textures / Thin liquids Mental Status: WNL Respiratory Status: Oxygenating on 4L/M nasal cannula - 5L O2 via nasal cannula is baseline at home - Penetration-Aspiration Scale Penetration-Aspiration Scale: OBJECTIVE ASSESSMENT OF SWALLOW FUNCTION (QUANTITATIVE ? PER TRIAL): PENETRATION / ASPIRATION SCALE (BROOKS): 1 = does not enter airway 2 = enters airway/above vocal folds/ejected 3 = enters airway/above vocal folds/not ejected 4 = enters airway/contacts vocal folds/ejected 5 = enters airway/contacts vocal folds/not ejected 6 = enters airway/below vocal folds/ejected 7 = enters airway/below vocal folds/not ejected despite effort 8 = enters airway/below vocal folds/no effort VIDEOFLOROSCOPIC SCALE SCORE (BROOKS): Grade I = aspiration of material that has penetrated into the laryngeal vestibule, intact cough reflex Grade II = aspiration < 10 % of the bolus, intact cough reflex Grade III = aspiration of < 10 % of the bolus, reduced cough reflex or aspiration of > 10 % of the bolus, intact cough reflex Grade IV = aspiration of > 10 % of the bolus, reduced cough reflex - Penetration-Aspiration Scale Score Thin Liquid via teaspoon Result: 1= does not enter airway Thin Liquid via teaspoon Trial 2 Result: 1= does not enter airway Thin Liquid via small single sip from cup Result: 3= enters airways/above vocal folds/not ejected Thin Liquid via large/normal single sip from cup Result: 5= enters airways/contacts vocal folds/not ejected [place] Thick Liquid via small single sip from cup Result: 3= enters airways/above vocal folds/not ejected Comment: post prandial, silent aspiration from previous trial Pudding via teaspoon Result: 1= does not enter airway Thin Liquid via single sip from straw Result: 8= enters airway/below vocal folds/no effort Thin Liquid via teaspoon Trial 3 Result: 2= enter airway/above vocal folds/ejected Thin Liquid via small single sip from cup Trial 2 Result: 2= enter airway/above vocal folds/ejected 1/2 Cookie Result: 1= does not enter airway - Oral Phase Labial Seal: No Labial Escape Tongue Control During Bolus Hold: Posterior escape of greater than half of bolus Bolus Preparation/Mastication: Slow prolonged chewing/mashing with complete recollection - posterior loss of cookie to vallecula Bolus Transport/Lingual Motion: Delayed initiation of tongue motion Oral Residue: Residue collection on oral structures - piecemeal deglutition of cookie - Pharyngeal Phase Initiation of Pharyngeal Swallow: Bolus head in pyriforms Soft Palate Elevation: No bolus between soft palate and pharyngeal wall Laryngeal Elevation: Partial superior movement thyroid cart/partial apprx aryt-epig petiole Anterior Hyoid Excursion: Partial anterior movement Epiglottic Movement: Partial inversion Laryngeal Vestibule Closure at Height of Swallow: Incomplete; narrow column of air/contrast in laryngeal vestibule Pharyngeal Stripping Wave: Present - diminished Pharyngoesophageal Segment Opening: Parital distension and partial duration; parital obstruction of flow Tongue Base Retraction: Wide column of contrast between tongue base & post. pharyngeal wall Pharyngeal Residue: Collection of residue within or on pharyngeal structures - Esophageal Phase Esophageal Clearance: Esophageal retention w/ retrograde flow below pharyngoesophageal seg. - Diagnosis/Impression Diagnosis: Moderate oropharyngeal dysphagia (R13.12) Impression: The oral phase is primarily marked by... -Decreased bolus control with >1/2 of various spilling posteriorly to the pharynx prior to swallow onset observed with thin liquids especially. -Delayed tongue motion for A-P transport. -Prolonged, but adequate mastication of cookie trial. Piecemeal deglutition observed with cookie, pt fully cleared mild oral residue with independent initiation of a second swallow. The pharyngeal phase is primarily marked by... -Decreased airway closure during the swallow due to severely decreased anterior hyoid excursion, partial epiglottic inversion, and mildly decreased laryngeal elevation. -Moderately decreased tongue base retraction, mildly decreased UES opening/duration, and moderately decreased pharyngeal stripping wave with resulting moderate pharyngeal residues after the swallow. The patient would somewhat clear residues with independent use of a second swallow. -SILENT post prandial aspiration of large sip of thin liquids by cup. SILENT aspiration during the swallow with thin liquids by straw. Laryngeal penetration with thin and nectar thick liquids via small cup sips, which did not reliably eject from the laryngeal vestibule after the swallow. Use of cued cough and re-swallow was effective in decreasing residues remaining in the laryngeal vestibule after the swallow. Effortful swallow appeared to be somewhat effective in decreasing laryngeal penetration of thin liquids by cup. The esophageal phase is primarily marked by... -Esophageal retention of pudding in lower esophagus with retrograde flow that remained well below the upper esophageal sphincter (UES). Majority of pudding bolus cleared with only mild retention in the lower esophagus. - Recommendations Diet: Regular Textures, Thin Liquids Comment: intermittent cough and re-swallows during meals, medications whole in puree (e.g. pudding) Compensatory Strategies: Small Bites, Liquid by Teaspoon Only - consider use of 5cc Provale bolus control cup, Slow Rate, Multiple Swallows - double swallows, especially with bites, Sitting upright, Remain sitting upright for 30 minutes after PO intake Supervision: Assist as needed - Family assist with cues as needed Recommend Repeat Modified Barium Swallow: TBD Need for Skilled Speech Therapy Services: Yes Comment: Will recommend the patient for continued home health dysphagia therapy to address moderate deficits in oropharyngeal swallow function. Will recommend the patient for oropharyngeal strengthening to improve lingual control, laryngeal elevation, hyoid excursion, tongue base, and pharyngeal contraction (e.g. lingual resistance exercises, Sharon, CTAR, Nicolasa, and effortful swallows). The patient and family would benefit from thorough education regarding diet recommendations and recommended compensatory strategies. Will additionally recommend the patient for implementation of [place] Free Water Protocol (FFWP) via cup to encourage hydration given strict aspiration precautions for sips by tsp and to promote increased opportunities for swallowing throughout the day. Education Completed: 1. Described result of evaluation., 2. Pt understands evaluation & agrees with goals and treatment plan., 4. Family/caregivers understand evaluation & agree w/ goals & tx plan., 7. Pt requires further education on strategies & risks., 8. Family/caregivers require further education on strategies & risks. - Status Active ST Patient: Active - Contact Information [facility] Speech Therapy:: Chelsey Adhikari M.A. [facility]-BACTERIOLOGIST PHARMACEUTICAL Speech-Language Pathologist [facility] [address] [place] [address] [email or web address] [phone] 03/22/22 15:28
== END | disposition home or self-care (01) ==
LOC: RAD 12:28
PROVIDERS: PCP Nurse Practitioner Family; Visit Provider Nurse Practitioner Family
DX: R47.02 Dysphasia (principal)
CPT/HCPCS: 74230; 92611

== ENCOUNTER 2022-05-13 09:10 | Outpatient (CLI) | payer MEDICARE, SELFPAY ==
--- NOTE | 2022-05-14 12:16 | PFT ---
INTRODUCTION: The patient is a 71-year-old male that presents for pulmonary function studies secondary to a diagnosis of COPD. Respiratory therapy reported good patient effort. Bronchodilators were used during testing. INTERPRETATION: Forced expiration spirometry demonstrates the presence of a moderately severe large airways obstructive ventilatory defect. There was no significant response to aerosolized bronchodilators. Spirograms are of good quality but do not plateau indicating slow emptying of the lungs. Body plethysmography was performed and demonstrated an elevated RV to 149% of predicted, indicative of underlying air trapping. Diffusing capacity by single breath CO is reduced to 30% of predicted. IMPRESSION: Irreversible moderately severe large airways obstructive ventilatory defect with associated air trapping and symmetric reduction in diffusing capacity.
== END 2022-05-13 23:59 | disposition home or self-care (01) ==
LOC: PSN 09:10
PROVIDERS: PCP Nurse Practitioner Family; Visit Provider Internal Medicine Critical Care Medicine
DX: J44.9 Chronic obstructive pulmonary disease, unspecified (principal); D50.8 Other iron deficiency anemias
CPT/HCPCS: 94060; 94726; 94729; 96365; J1439; J7050

== ENCOUNTER → 2022-05-15 | Outpatient (CLI) | payer MEDICARE, SELFPAY ==
[2022-05-15 12:30] VITALS: PULSE 102; PULSE 108; PULSE 109; PULSE 111; PULSE 87; PULSE 93; O2SAT 82; O2SAT 90; O2SAT 91; O2SAT 93
--- NOTE | 2022-05-15 14:04 | CPS ---
Patient arrived with home oxygen. Patient turned it off prior to testing per instruction of RT yesterday. Patient's RA SpO2 was 82%. This RT applied 2L of O2 and SpO2 came up to 92 while sitting. Patient finished remainder of testing on 2L without complications. Luz ATKINS
--- NOTE | 2022-05-16 08:24 | PCM.PSN.6M ---
PSN 6 Minute Walk Test 6 Minute Walk Test 6 Minute Walk Test: 6 Minute Walk Test PSN:6-Minute Walk Test Start: 05/15/22 14:00 Freq: Status: Active Protocol: [id number].6MINW Document 05/15/22 12:30 JR (Rec: 05/15/22 14:05 JR [id number]) 6 Minute Walk Test Date Performed 05/15/22 Time Performed 12:30 Height 5 ft 11 in Weight: 275 lb Weight in Pounds 275.[address]: Anthony Singleton Assistive device used: None Pre-test Oxygen Flow Rate (L/min) (L/min) 2 Oxygen Delivery Method Room Air Pulse Ox (%) 82 Pulse Rate (60-100 beats/min) 87 Dyspnea Yaya Scale (0-10) 0 Exertion Yaya Scale (6-20) 6 1st minute Oxygen Flow Rate (L/min) (L/min) 2 Oxygen Delivery Method Nasal Cannula Pulse Ox (%) 90 Pulse Rate (60-100 beats/min) 102 H 2nd minute Oxygen Flow Rate (L/min) (L/min) 2 Oxygen Delivery Method Nasal Cannula Pulse Ox (%) 91 Pulse Rate (60-100 beats/min) 109 H 3rd minute Oxygen Flow Rate (L/min) (L/min) 2 Oxygen Delivery Method Nasal Cannula Pulse Ox (%) 90 Pulse Rate (60-100 beats/min) 111 H 4th minute Oxygen Flow Rate (L/min) (L/min) 2 Oxygen Delivery Method Nasal Cannula Pulse Ox (%) 91 Pulse Rate (60-100 beats/min) 111 H 5th minute Oxygen Flow Rate (L/min) (L/min) 2 Oxygen Delivery Method Nasal Cannula Pulse Ox (%) 91 Pulse Rate (60-100 beats/min) 109 H 6th minute Oxygen Flow Rate (L/min) (L/min) 2 Oxygen Delivery Method Nasal Cannula Pulse Ox (%) 91 Pulse Rate (60-100 beats/min) 108 H Dyspnea Yaya Scale (0-10) 2 Exertion Yaya Scale (6-20) 12 Post-test Oxygen Flow Rate (L/min) (L/min) 2 Oxygen Delivery Method Nasal Cannula Pulse Ox (%) 93 Pulse Rate (60-100 beats/min) 93 Full Laps Walked 7 Partial Lap, Number of Tiles Walked 0 Total Distance Walked (ft) 413 05/15/22 14:04 Cardiopulmonary Services by Luz Whiteside Patient arrived with home oxygen. Patient turned it off prior to testing per instruction of RT yesterday. Patient's RA SpO2 was 82%. This RT applied 2L of O2 and SpO2 came up to 92 while sitting. Patient finished remainder of testing on 2L without complications. Luz ATKINS Initialized on 05/15/22 14:04 - END OF NOTE Interpretation Interpretation: The patient ambulated 413 feet over the course of 6 minutes with use of a cane. Pretesting oxygen saturation was noted to be 82% on room air. 2 L/min of supplemental oxygen was subsequently applied. With ambulation, the per oxygen saturation was 90%. Recommendations Recommendations: 2 L/min of supplemental oxygen should be utilized, both at rest and with exertion.
== END | disposition home or self-care (01) ==
LOC: PSN 12:24
PROVIDERS: PCP Nurse Practitioner Family; Visit Provider Internal Medicine Critical Care Medicine
DX: J44.9 Chronic obstructive pulmonary disease, unspecified (principal)
CPT/HCPCS: 94618

== ENCOUNTER → 2022-06-05 | Outpatient (CLI) | payer MEDICARE, SELFPAY ==
--- NOTE | 2022-06-05 16:08 | ST.MBS ---
Modified Barium Swallow - Patient Information Study Date: 06/05/22 Study Time: 13:00 Direct Billable Minutes: 101 Total Minutes procedure & reportin Diagnosis: Hx of aspiration (Z87.898), COPD (J44.9) Referring Physician: OLEG ELIZONDO Reason for Referral: Objectively assess swallow function, assess risk for aspiration, and determine recommendations for least restrictive diet textures and compensatory strategies to improve safety of swallow. Medical History: Jaydon Quintana is a 71-year-old male with PMH significant for acute respiratory failure with hypoxia, asthma, Non-Hodgkin lymphoma, PNA, COPD, diabetes, DVT, GI bleed, hx of PE (04/30/2021) (SEE EMR for full PMH). Patient has a history of dysphagia and is familiar to this speech department. Most recently he was seen at [facility] from 05/05/2021-05/17/2021 with discharge recommendations for soft and bites size textures / thin liquids, small sips one at a time amongst other aspiration precautions. Pt had participated in MBSS during that stay on 05/08/2021, which revealed SILENT aspiration of thin liquids via large cup sip, sequential sips by cup, cup sip with chin tuck. Since discharge from TCU, pt has been following with [facility]; however, he was referred for repeat MBSS on 03/22/22 due to recurring PNAs. reported the patient has had PNA almost monthly for the past year. Patient was recommended for thin liquids by tsp sips, regular textures, and continued home health dysphagia therapy to address moderate oropharyngeal dysphagia. Additionally, patient was recommended to be considered for implementation of [place] Free Water Protocol. See MBSS completed on 03/22/22 for full report. He reports completing oropharyngeal strengthening almost daily. Patient recommended for repeat swallow study by home health [facility] to assess upgrading diet from thin liquids by tsp sips. Patient reported he was experiencing low blood pressure due to decreased liquid intake when he first transitioned to sips by tsp, but has been able to maintain good blood pressures recently. Additionally, patient reported he was not placed on on [place] Free Water Protocol. Current Diet Ordered: Regular textures / Thin by tsp Dentition: Upper Dentures, Lower Dentures Mental Status: WNL Respiratory Status: Oxygenating on 3L/M nasal cannula - Penetration-Aspiration Scale Penetration-Aspiration Scale: OBJECTIVE ASSESSMENT OF SWALLOW FUNCTION (QUANTITATIVE ? PER TRIAL): PENETRATION / ASPIRATION SCALE (BROOKS): 1 = does not enter airway 2 = enters airway/above vocal folds/ejected 3 = enters airway/above vocal folds/not ejected 4 = enters airway/contacts vocal folds/ejected 5 = enters airway/contacts vocal folds/not ejected 6 = enters airway/below vocal folds/ejected 7 = enters airway/below vocal folds/not ejected despite effort 8 = enters airway/below vocal folds/no effort VIDEOFLOROSCOPIC SCALE SCORE (BROOKS): Grade I = aspiration of material that has penetrated into the laryngeal vestibule, intact cough reflex Grade II = aspiration < 10 % of the bolus, intact cough reflex Grade III = aspiration of < 10 % of the bolus, reduced cough reflex or aspiration of > 10 % of the bolus, intact cough reflex Grade IV = aspiration of > 10 % of the bolus, reduced cough reflex - Penetration-Aspiration Scale Score Thin Liquid via teaspoon Result: 1= does not enter airway Thin Liquid via teaspoon Trial 2 Result: 1= does not enter airway Thin Liquid via large single sip from cup Result: 3= enters airways/above vocal folds/not ejected Thin Liquid via large single sip from cup cued cough and re-swallow Result: 7= enters airways/below vocal folds/not ejected despite effort Thin Liquid via small single sip from cup Effortful swallow Result: 2= enter airway/above vocal folds/ejected Thin Liquid via small single sip from cup Effortful swallow Trial 2 Result: 1= does not enter airway Pudding via teaspoon with esophageal screen Result: 1= does not enter airway 1/2 Cookie Result: 1= does not enter airway Thin Liquid via small single sip from cup Result: 5= enters airways/contacts vocal folds/not ejected - [employer] student cued use of effortful swallow, with trial, but patient noted he forgot to use the effortful swallow after completion Thin Liquid via small single sip from cup Effortful swallow Trial 3 Result: 8= enters airway/below vocal folds/no effort - Unable to determine if aspiration was from this trial or from barium contrast remaining on the vocal folds from previous trial Comment: Cued cough and re-swallow after completion of trial Thin Liquid via single sip from straw Effortful swallow Result: 3= enters airways/above vocal folds/not ejected - trace Thin liquid via small sip by cup with cued breath hold prior to hard swallow Result: 2= enter airway/above vocal folds/ejected - Oral Phase Labial Seal: Interlabial escape, no progression to anterior lip Tongue Control During Bolus Hold: Posterior escape of greater than half of bolus - large cup sip of thin Bolus Preparation/Mastication: Slow prolonged chewing/mashing with complete recollection Bolus Transport/Lingual Motion: Delayed initiation of tongue motion Oral Residue: Residue collection on oral structures - large cup sip of thin - Pharyngeal Phase Initiation of Pharyngeal Swallow: Bolus head in pyriforms - large cup sip of thin spilled to laryngeal vestibule prior to swallow onset Soft Palate Elevation: Trace column of contrast/air between soft palate and pharyngeal wall Laryngeal Elevation: Partial superior movement thyroid cart/partial apprx aryt-epig petiole Anterior Hyoid Excursion: Partial anterior movement - minimal anterior hyoid excursion Epiglottic Movement: Partial inversion - large cup sip of thin Laryngeal Vestibule Closure at Height of Swallow: Incomplete; narrow column of air/contrast in laryngeal vestibule - wide column of contrast in laryngeal vestibule with large cup sip of thin Pharyngeal Stripping Wave: Present - diminished Pharyngoesophageal Segment Opening: Parital distension and partial duration; parital obstruction of flow Tongue Base Retraction: Wide column of contrast between tongue base & post. pharyngeal wall Pharyngeal Residue: Collection of residue within or on pharyngeal structures - Esophageal Phase Esophageal Clearance: Esophageal retention w/ retrograde flow below pharyngoesophageal seg. - Diagnosis/Impression Diagnosis: Moderate oropharyngeal phase dysphagia (R13.12) Impression: The oral phase is primarily marked by... -Decreased bolus control with >1/2 of various spilling posteriorly to the pharynx prior to swallow onset observed with large cup sip of thin liquids especially. -Mildly delayed tongue motion for A-P transport. -Prolonged, but adequate mastication of cookie trial. The pharyngeal phase is primarily marked by... -Decreased airway closure during the swallow due to severely decreased anterior hyoid excursion, inconsistent epiglottic inversion, and mildly decreased laryngeal elevation. Epiglottis fully inverted for a majority of trials with the exception of large cup sip of thin liquids. -Moderately decreased tongue base retraction, mildly decreased UES opening/duration, and moderately decreased pharyngeal stripping wave with resulting moderate pharyngeal residues after the swallow, which somewhat cleared with independent use of second swallow. -Overt aspiration of large cup sip of thin liquids as patient was cued to take his normal size sip. Silent aspiration of thin liquids via cup, likely post prandial - SEE PAS scores above for further detail. Use of cued cough and re-swallow was effective in decreasing residues remaining in the laryngeal vestibule after the swallow. Effortful swallow and breath hold prior to swallow appeared to be somewhat effective in decreasing laryngeal penetration. The esophageal phase is primarily marked by... -Minimal esophageal retention of pudding in lower esophagus with retrograde flow that remained well below the upper esophageal sphincter (UES). - Recommendations Diet: Regular Textures, Thin Liquids - with modified [place] Free Water Protocol (FFWP) (SEE details in Need for Skilled Speech Therapy Services below) Comment: Compensatory Strategies: Small Bites, Liquid by Teaspoon or 5cc Provale bolus control cup only, Slow Rate, Double swallows - especially with bites, Sitting upright, Remain sitting upright for 30 minutes after PO intake, intermittent cough and re-swallows during meals, medications whole in puree (e.g. pudding). Supervision: Assist as needed - Family assist with cues as needed. Recommend Repeat Modified Barium Swallow: TBD Need for Skilled Speech Therapy Services: Yes Comment: dysphagia therapy recommendations include: -Implement FFWP with use of small, effortful swallows with small cup sips of water (after oral care and 30 min after snacks and meals). -Continue with maintenance home exercise program (lingual resistance, CTAR, Nicolasa, effortful, and Sharon) and training in use of recommended strategies to decrease risk for aspiration. Education Completed: 1. Described result of evaluation., 2. Pt understands evaluation & agrees with goals and treatment plan., 7. Pt requires further education on strategies & risks. - Status Active ST Patient: Active - Contact Information [facility] Speech Therapy:: Chelsey Adhikari M.A. [facility] Speech-Language Pathologist [facility] [address] [place] [address] [email or web address] [phone] 06/05/22 16:12
== END | disposition home or self-care (01) ==
LOC: RAD 12:57
PROVIDERS: PCP Nurse Practitioner Family; Referring Provider Nurse Practitioner Family; Visit Provider Nurse Practitioner Family
DX: R47.02 Dysphasia (principal)
CPT/HCPCS: 74230; 92611

== ENCOUNTER → 2022-06-19 | Outpatient (CLI) | payer MEDICARE, SELFPAY ==
[2022-06-19 12:06] LABS: Hematocrit 31.7 % (40-54); Hemoglobin 9.7 g/dL (13.0-16.5)
[2022-06-19 12:31] LABS: Ferritin 283 ng/mL (26-388); Iron 115 ug/dL (65-175); Iron Binding Capacity,Total 257 ug/dL (250-450); PERCENT IRON SATURATION 44.7 % (15.0-55.0); PSA,Total - Annual Screen 1.24 ng/mL (0.00-4.00)
== END | disposition home or self-care (01) ==
PROVIDERS: PCP Nurse Practitioner Family; Referring Provider Internal Medicine Gastroenterology; Visit Provider Internal Medicine Gastroenterology
DX: Z12.5 Encounter for screening for malignant neoplasm of prostate (principal); E11.9 Type 2 diabetes mellitus without complications; K92.2 Gastrointestinal hemorrhage, unspecified
CPT/HCPCS: 36415; 82728; 83540; 83550; 84153; 85014; 85018; G0103

== ENCOUNTER → 2022-07-09 | Outpatient (CLI) | payer MEDICARE, SELFPAY ==
--- NOTE | 2022-07-09 16:07 | CT_ITS ---
STUDY: CT ABDOMEN AND PELVIS WITH AND WITHOUT CONTRAST REASON FOR EXAM: Male, 71 years old. Microscopic hematuria. RADIATION DOSAGE (If Supplied By Facility): CTDIvol = ( 23.73 ) mGy, DLP = ( 4547.67 ) mGycm TECHNIQUE: Transaxial images were obtained from the dome of the diaphragm to the symphysis pubis without oral contrast. IV 100mL Isovue-300 was administered. Sagittal and coronal images were reconstructed. Individualized dose optimization techniques were used for this CT. COMPARISON: None. FINDINGS: Small bilateral pleural effusions, right greater than left with subsegmental atelectasis. Question minimal bibasilar bronchiectasis.. The visualized portions of the heart are within normal limits. Normal liver. Gallstones within a partially contracted gallbladder. No inflammatory change. No biliary ductal dilatation or choledocholithiasis. Normal spleen. Normal pancreas. Normal bilateral adrenal glands. Multiple right renal cysts. The largest, in the upper pole, measures 3.5 x 2.8 x 3.1 cm there is a 2 mm calcification lower pole of the left kidney. Solid masses or hydronephrosis. Normal visualized ureters. Normal visualized stomach. Normal small intestine. Normal colon. The appendix is visualized and appears normal. There is diffuse atherosclerotic calcification of the abdominal aorta, without a demonstrated aneurysm. There is an IVC filter in place. Normal retroperitoneum. Thick-walled urinary bladder without filling defect or mass. Mildly enlarged prostate with central calcifications. No pelvic lymphadenopathy. No free air or free fluid is seen within the peritoneal cavity. Umbilical hernia of omental fat. Mild stranding of the subcutaneous tissues of the bilateral flanks. There are diffuse degenerative changes of the visualized lumbar spine. CT/CT Abd/Pelvis W/WO Contrast IMPRESSION: 1. Marked wall thickening of the urinary bladder. Cystitis versus outlet obstruction secondary to enlarged prostate. 2. Nonobstructing left renal calculus. 3. Multiple renal cysts. These require no further follow-up. 4. Gallstones without acute cholecystitis. 5. IVC filter. 6. Small bilateral pleural effusions. 7. Degenerative changes of the lumbar spine. Electronically Signed: Baron Olmstead DO at 21:20 EDT Reading Location ID and State: [facility] / [place] Tel [phone], Service support ,
[2022-07-10 09:21] LABS: CREATININE FINGERSTICK 1.4 mg/dL (0.70-1.30)
== END | disposition home or self-care (01) ==
LOC: CT 15:50
PROVIDERS: PCP Nurse Practitioner Family; Referring Provider Urology; Visit Provider Urology
DX: R31.29 Other microscopic hematuria (principal)
CPT/HCPCS: 74178; Q9967

== ENCOUNTER 2022-08-29 15:45 | Emergency (ER) | payer MEDICARE, SELFPAY ==
[2022-08-29 15:47] VITALS: BP 114/47; PULSE 88; RESP 19; TEMP 36.1; O2SAT 90
--- NOTE | 2022-08-29 16:38 | EX.ED.DYSGE1 ---
HPI History of Present Illness Chief Complaint: Weakness Narrative Narrative: 71-year-old male multiple medical problems including COPD wears 4 L of oxygen at all times presents with increasing shortness of breath, weakness and fatigue secondary to GI bleed. He states that he takes aspirin/baby aspirin and had previous GI bleed which was cauterized last year. He did require a blood transfusion at that time. Over the last 3 months he has had black stool. He states that he swallowed a camera for reimbursement director, Dr. Galeana, on Friday of last week. He and his family received a call today that he needed to go to the hospital and get lab work performed. His relative states that he has a hemoglobin of 7.8, and that he has been sent here to the emergency department so that he can be admitted so that Dr. Galeana can scope him tomorrow. Patient denies any chest pain, no fevers or chills but states he has had increased fatigue and shortness of breath with dyspnea on exertion over his baseline COPD. He denies any other bleeding diathesis but does state that his stool has been black for a few months. No gross hematemesis. [facility] Medical History Acute respiratory failure with hypoxia Allergic rhinitis Arthritis Asthma Atherosclerosis of coronary artery of [place] heart without angina pectoris Bleeding tendency Cancer Chronic bronchitis Colon polyp COPD (chronic obstructive pulmonary disease) COVID-19 in immunocompromised patient Diabetes DVT (deep venous thrombosis) (05/01/21) Essential hypertension Former smoker FTT (failure to thrive) in adult Gastritis High cholesterol History of basal cell carcinoma History of pilonidal cyst History of pulmonary embolus (PE) (04/30/21) History of stress test HTN (hypertension) Hyperglycemia Nicotine dependence, cigarettes, uncomplicated Non-Hodgkin lymphoma Obesity On home oxygen therapy Physical debility Pneumonia Positive colorectal cancer screening using Cologuard test RA (rheumatoid arthritis) Rhinovirus Tobacco abuse Type 2 diabetes mellitus Ulcer 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 complications Home Medications cholecalciferol (vitamin D3) 25 mcg (1,000 unit) capsule 25 mcg PO DAILY vitamin 07/17/20 [History Last Taken 12/08/21] nitroglycerin 0.4 mg sublingual tablet (Nitrostat) 0.4 mg sublingual Q5M PRN chest pain #30 tabs 09/25/20 [Rx Last Taken Unknown] ferrous sulfate 325 mg (65 mg iron) tablet 325 mg PO BID iron supplement 04/26/21 [History Last Taken 12/08/21] escitalopram oxalate 10 mg tablet 10 mg PO DAILY mood 30 days #90 tabs 06/21/21 [Rx Last Taken 12/08/21] atorvastatin 40 mg tablet 20 mg PO QHS cholesterol 10/09/21 [History Last Taken 12/07/21] metoprolol tartrate 25 mg tablet 12.5 mg PO BID BP 10/09/21 [History Last Taken 12/08/21] mirtazapine 15 mg tablet (Remeron) 7.5 mg PO QHS sleep 12/08/21 [History Last Taken 12/07/21] aspirin 81 mg tablet,delayed release 81 mg PO DAILY 12/31/21 [History Last Taken Unknown] budesonide 1 mg/2 mL suspension for nebulization 1 mg (2 mL) inhalation BID #60 mL 06/05/22 [Rx Last Taken Unknown] albuterol sulfate 2.5 mg/3 mL (0.083 %) solution for nebulization 2.5 mg (3 mL) inhalation Q6H PRN shortness of breath or wheezing #180 mL 06/25/22 [Rx Last Taken Unknown] ipratropium 0.5 mg-albuterol 3 mg (2.5 mg base)/3 mL nebulization soln 3 ml inhalation Q4H PRN PRN SOB &/OR WHEEZING #180 mL 06/25/22 [Rx Last Taken Unknown] ipratropium bromide 0.02 % solution for inhalation 2.5 ml inhalation Q6H PRN shortness of breath or wheezing #150 mL 06/25/22 [Rx Last Taken Unknown] finasteride 5 mg tablet 5 mg PO DAILY 08/14/22 [History Last Taken Unknown] tamsulosin 0.4 mg capsule 0.4 mg PO DAILY 08/14/22 [History Last Taken Unknown] Allergy/AdvReac Type Severity Reaction Status Date / Time levofloxacin [From Levaquin] AdvReac Intermediate diarrhea, Verified 08/29/22 15:49 dizziness, GI upset, weakness Family History Father Arthritis Bleeding disorder Hypertension Kidney disease Cancer Skin Anemia blood clots Emphysema lung Mother Colon cancer Cancer Lung Cancer Diabetes Brother Thyroid disorder Surgical History H/O cardiac catheterization History of coronary artery stent placement (10/22/13) History of embolic filter insertion History of excision of pilonidal cyst History of heart artery stent History of thymectomy Hx of lymph node excision Presence of IVC filter (04/2021) Status post cardiac surgery Social History household members: spouse Smoking Status: Former smoker Tobacco: How many years used: 55 second hand exposure: Yes alcohol intake: current alcohol intake frequency: holidays/special occasions only substance use type: does not use caffeine: Yes Type: coffee Number of servings: 3 what type of physical activity do you participate in: none frequency: does not exercise seatbelt use: always ROS ROS ED ROS Narrative Constitutional: No fever, no chills. Generalized weakness. HEENT: No sore throat. No neck pain. No loss of vision. No rhinorrhea. Cardiovascular: No chest pain. No palpitations. No pedal edema. Respiratory: No cough, positive shortness of breath and dyspnea on exertion. Abdominal: No abdominal pain. No nausea. No vomiting. Positive black stool times months Genitourinary: No dysuria. No hematuria. Musculoskeletal: No myalgias. No arthralgias. Neurologic: No headaches. No dizziness. No lightheadedness. Skin: No rash. No change in color. Psychiatric: No depression. No anxiety. EXAM Physical Exam Narrative Exam Narrative: Afebrile. Vital signs noted. HEENT: Normocephalic. Atraumatic. PERRL, EOMI. Neck soft and supple. No point tenderness or step off. Cardiovascular: Regular rate and rhythm. No murmurs, rubs, or gallops appreciated. Respiratory: No tachypnea. Lungs clear to auscultation bilaterally. Decreased breath sounds bilateral bases. Gastrointestinal: Abdomen soft, nontender, with normoactive bowel sounds. No rebound or guarding. Neurological: Awake. Alert. Nonfocal, nonlateralizing. Skin: No rash. Normal color. Mild pallor. Musculoskeletal: No pedal edema. Full range of motion extremities. Const Vital Signs: 08/29/22 15:47 08/29/22 17:30 08/29/22 18:09 Temperature 97 F L Temperature Source Temporal Pulse Rate 88 Pulse Rate [Lying] 74 Pulse Rate [Sitting (for 1 minute prior to obtaining)] 78 Pulse Rate [Standing (for 1 minute prior to obtaining)] 78 Respiratory Rate 19 H Blood Pressure 114/47 L 134/64 H Blood Pressure [Lying] 132/63 H Blood Pressure [Sitting (for 1 minute prior to obtaining)] 127/61 H Blood Pressure [Standing (for 1 minute prior to obtaining)] 126/62 H Blood Pressure Mean 69 87 Blood Pressure Mean [Lying] 86 Blood Pressure Mean [Sitting (for 1 minute prior to obtaining)] 83 Blood Pressure Mean [Standing (for 1 minute prior to obtaining)] 83 Pulse Ox 90 Oxygen Delivery Method Nasal Cannula Oxygen Flow Rate (L/min) 1 MDM MDM MDM Narrative Medical decision making narrative: I reviewed the patient's laboratory work from today and he does have a hemoglobin of 7.8. I will repeat his hemoglobin and BMP along with performed type and screen and obtain an EKG. EKG was obtained and interpreted by myself independently as normal sinus rhythm at 77 bpm without ectopy or acute ST changes. No STEMI. Electronic reading as it is an accelerated junctional rhythm, regardless there are no acute ST changes, no STEMI noted. I reviewed the patient's laboratory work and today a few hours later, his hemoglobin is stable at 7.9, normal platelet count of 264, normal white count of 6.5. BUN is chronically elevated is 29 today with creatinine 1.43 with chronic kidney injury. Type and screen is currently pending. I discussed the patient with the hospitalist, Dr. Dewitt. He also reviewed the patient's laboratory work. It looks like the camera report came back at the end of July. There is no evidence of bleeding however. Dr. Dewitt had discussed the patient with Dr. Galeana who stated without active bleeding, and a stable hemoglobin even from last month, that there was no need for admission for endoscopy. In review of the Endoscopy by camera, he may have 3 lesions that will require Protonix and Carafate. Dr. Dewitt has discussed this with the patient as he has seen him in the emergency department and told him that there was no need to admit him because he would not need endoscopy for cauterization as there is no active bleeding. He had offered him an iron infusion but the patient declined. Dr. Esdras zhao discussed the patient with Dr. Galeana and Dr. Galeana's office will contact the patient tomorrow to set up outpatient iron infusion. It was thought that he could be discharged as he is not having any active bleeding and does not require more urgent endoscopy. Disposition is discharged home in stable condition. History & Record Review Discussion w/independent historian: Patient and Family Additional record(s) reviewed:: Prior ED visit and Prior labs Lab Data Attestation: I reviewed the patient's lab results. Labs: Laboratory Results - last 24 hr 08/29/22 16:40 WBC 6.5 RBC 2.58 L Hgb 7.9 L Hct 24.7 L MCV 95.7 H MCH 30.6 MCHC 32.0 RDW Std Deviation 50.5 H RDW Coeff of Rafael 14.7 H Plt Count 264 MPV 10.4 Immature Gran % (Auto) 0.900 Neut % (Auto) 68.2 Lymph % (Auto) 15.6 L Banks % (Auto) 10.4 H Eos % (Auto) 4.3 Baso % (Auto) 0.6 Absolute Neuts (auto) 4.5 Absolute Lymphs (auto) 1.02 Nucleated RBC % 0 Sodium 139 Potassium 4.3 Chloride 106 Carbon Dioxide 28.0 Anion Gap 5 BUN 29 H Creatinine 1.43 H Est GFR (MDRD) Af Amer 62 Est GFR (MDRD) Non-Af 52 L BUN/Creatinine Ratio 20.3 H Glucose 338 H Calcium 8.8 Total Bilirubin 0.40 AST 9 L ALT 19 Alkaline Phosphatase 86 Total Protein 7.0 Albumin 3.4 Globulin 3.6 Albumin/Globulin Ratio 0.9 Blood Type AB POSITIVE Antibody Screen NEGATIVE Management Discussion w/another healthcare provider: Hospitalist Discharge Plan Triage Chief Complaint: Weakness ED Provider: Adam Freeman Dx/Rx/DC Orders Clinical Impression: Fatigue, SOB (shortness of breath), Anemia Instructions: ED Anemia, Type Not Specified (Adult), ED Dyspnea, ED Weakness (Uncertain Cause) Prescriptions: No Action cholecalciferol (vitamin D3) 25 mcg (1,000 unit) capsule 25 mcg PO DAILY nitroglycerin [Nitrostat] 0.4 mg tablet, sublingual 0.4 mg SUBLINGUAL Q5M PRN (Reason: chest pain) Qty: 30 0RF Rx Instructions: until response; do not exceed 3 doses per episode metoprolol tartrate 25 mg tablet 12.5 mg PO BID tamsulosin 0.4 mg capsule 0.4 mg PO DAILY finasteride 5 mg tablet 5 mg PO DAILY ferrous sulfate 325 mg (65 mg iron) tablet 325 mg PO BID atorvastatin 40 mg tablet 20 mg PO QHS aspirin 81 mg Tablet,Delayed Release (Dr/Ec) 81 mg PO DAILY mirtazapine [Remeron] 15 mg tablet 7.5 mg PO QHS escitalopram oxalate 10 mg tablet 10 mg PO DAILY 30 Days Qty: 90 3RF budesonide 1 mg/2 mL suspension for nebulization 1 mg inhalation BID Qty: 60 6RF ipratropium-albuterol 0.5 mg-3 mg(2.5 mg base)/3 mL solution for nebulization 3 ml inhalation Q4H PRN PRN (Reason: SOB &/OR WHEEZING) Qty: 180 6RF albuterol sulfate 2.5 mg /3 mL (0.083 %) solution for nebulization 2.5 mg inhalation Q6H PRN (Reason: shortness of breath or wheezing) Qty: 180 6RF ipratropium bromide 0.02 % solution 2.5 ml inhalation Q6H PRN (Reason: shortness of breath or wheezing) Qty: 150 6RF Primary Care Provider: Donna Will Referrals: Donna Will MD [Primary Care Provider] - 3-5 Days if not improving Khai Galeana DO [Med Staff - Active Staff] - As soon as possible Activity Restrictions/Additional Instructions: Follow-up with Dr. Galeana. They will attempt to contact you tomorrow for outpatient iron infusion. If you do not hear from them by 10 AM, call the office. Take your medications as directed. You have prescriptions waiting at [facility] [place] for Carafate and Protonix. Disposition Disposition: Home, Self Care
--- NOTE | 2022-08-29 16:42 | EKG12_ITS ---
Test Reason : WEAKNESS Blood Pressure : / mmHG Vent. Rate : 077 BPM Atrial Rate : 000 BPM P-R Int : 000 ms QRS Dur : 098 ms QT Int : 406 ms P-R-T Axes : 000 048 021 degrees QTc Int : 459 ms Sinus rhythm Abnormal ECG Confirmed by PANCHITO TEIXEIRA, ALONDRA ([id number]), editor house organ AVINASH MARTINEZ ([id number]) on 09/02/2022 1:05:10 PM Referred By: MINISTERIO Confirmed By:CLEOPATRA FLANAGAN MD
[2022-08-29 17:04] LABS: Absolute Lymphocyte Count 1.02 X10^3/uL (0.83-4.51); Absolute Neutrophil Count 4.5 X10^3/uL (2.0-7.7); Basophil# 0.04 X10^3/uL; Basophil% 0.6 % (0-1); Eosinophil# 0.28 X10^3/uL; Eosinophils% 4.3 % (0-5); Hematocrit 24.7 % (40-54); Hemoglobin 7.9 g/dL (13.0-16.5); Lymphocyte # 1.02 X10^3/ul (0.83-4.51); Lymphocyte % 15.6 % (19-41); Mean Corpuscular Hgb 30.6 pg (27.0-32.0); Mean Corpuscular Volume 95.7 fL (80-94); Mean Platelet Vol. 10.4 fl (6.2-12.0); Monocyte# 0.68 X10^3/uL; Monocyte% 10.4 % (0-10); NRBC Flagged by Analyzer 0 % (0-5); Neutrophil # 4.46 X10^3/uL (2.7-7.7); Neutrophil % 68.2 % (47-70); Platelet Count 264 K/mm3 (150-450); RBC Distribution Width CV 14.7 % (11.6-14.6); RBC Distribution Width SD 50.5 fl (35.1-43.9); Red Blood Count 2.58 M/mm3 (4.6-6.2); White Blood Count 6.5 K/mm3 (4.4-11.0)
[2022-08-29 17:20] LABS: ALB/GLOB Ratio 0.9 RATIO (0.9-2.4); AST(SGOT) 9 U/L (15-37); Alanine Aminotransfer ALT/SGPT 19 U/L (16-61); Albumin, Serum 3.4 g/dL (3.2-5.0); Alkaline Phosphatase 86 U/L (45-117); Anion Gap 5 (5-15); BUN 29 mg/dL (7-18); BUN/Creat Ratio 20.3 RATIO (10-20); Calcium,Total 8.8 mg/dL (8.5-10.1); Chloride 106 mmol/L (98-107); Creatinine, Serum 1.43 mg/dL (0.70-1.30); EST Glomerular Filtration Rate 52 mL/min (>60); Est Glom Filt Rate - Afr Amer 62 mL/min (>60); Globulin 3.6 g/dL (2.2-4.2); Glucose 338 mg/dL (74-106); Potassium 4.3 mmol/L (3.5-5.1); Sodium Level 139 mmol/L (136-145)
[2022-08-29 17:30] VITALS: BP 126/62; BP 127/61; BP 132/63; PULSE 74; PULSE 78; BMI 32.6
[2022-08-29 18:09] VITALS: BP 134/64
== END 2022-08-29 18:37 | disposition home or self-care (01) ==
PROVIDERS: Emergency Provider Emergency Medicine; PCP Internal Medicine; Visit Provider Emergency Medicine
DX: D50.9 Iron deficiency anemia, unspecified (principal); J44.9 Chronic obstructive pulmonary disease, unspecified; E11.9 Type 2 diabetes mellitus without complications; R53.1 Weakness; Z87.891 Personal history of nicotine dependence; E78.00 Pure hypercholesterolemia, unspecified; I25.10 Atherosclerotic heart disease of native coronary artery without angina pectoris; I10 Essential (primary) hypertension; Z99.81 Dependence on supplemental oxygen; Z79.82 Long term (current) use of aspirin
CPT/HCPCS: 36415; 80053; 85014; 85018; 85025; 86850; 86900; 86901; 93005; 99283

== ENCOUNTER → 2022-08-29 | Outpatient (CLI) | payer MEDICARE, SELFPAY ==
[2022-08-29 15:30] LABS: Hematocrit 26.2 % (40-54); Hemoglobin 7.8 g/dL (13.0-16.5)
== END | disposition home or self-care (01) ==
LOC: LAB 14:56
PROVIDERS: PCP Nurse Practitioner Family; Referring Provider Internal Medicine Gastroenterology; Visit Provider Internal Medicine Gastroenterology
DX: D50.9 Iron deficiency anemia, unspecified (principal)
CPT/HCPCS: 36415; 85014; 85018

== ENCOUNTER 2022-11-15 14:29 | Inpatient (IN) | payer MEDICARE, SELFPAY ==
[2022-11-15] VITALS (12 sets, daily range): BP systolic 118–137; BP diastolic 59–74; PULSE 74–86; RESP 15–25; TEMP 36.6–36.9; O2SAT 92–100; BMI 16.0; BMI 34.4
--- NOTE | 2022-11-15 14:51 | EKG12_ITS ---
Test Reason : SOB Blood Pressure : / mmHG Vent. Rate : 074 BPM Atrial Rate : 074 BPM P-R Int : 152 ms QRS Dur : 102 ms QT Int : 400 ms P-R-T Axes : 029 046 018 degrees QTc Int : 444 ms Normal sinus rhythm Normal ECG Confirmed by PANCHITO TEIXEIRA, ALONDRA ([id number]), scientific editor APOLONIA GUERRERO ([id number]) on 11/19/2022 10:28:46 AM Referred By: Confirmed By:CLEOPATRA FLANAGAN MD
--- NOTE | 2022-11-15 14:52 | ED.VIS.DYS ---
HPI History of Present Illness Chief Complaint: Shortness of Breath Detail of Chief Complaint: Increased dyspnea past 2 weeks Informant: patient Onset/Context/Timing Onset: Weeks Context: gradual Timing: Continuous and Waxes and wanes Quality: Positive for Dyspnea on exertion and Orthopnea (Sleeps in a chair at 45 degrees for the past 6 to 9 months); Negative for PND or Wheezing Current Severity: Mild Maximum Severity: Severe Worsened by: Exertion and Lying flat; Not Worsened By Coughing Relieved by: Not Relieved By Rest or Oxygen Associated Symptoms cough and white sputum; Negative for rhinorrhea, post nasal drip, ear pain, fever, sore throat, subjective, chills, sweats, clear sputum, yellow sputum or green sputum Chest Pain: Positive for None Narrative Narrative: Patient is a 72-year-old male with history of non-Hodgkin's lymphoma diagnosed in 1999 and has been cancer free who presents with dyspnea, dyspnea on exertion and stable orthopnea. He reports increased dyspnea with activity over the past 2 weeks. He denies fever or chills. He denies night sweats or weight gain. He denies headache, visual, ocular auditory symptoms. He denies rhinorrhea, congestion, postnasal drainage or sore throat. He does have a cough and is productive of cloudy appearing sputum. This is not normal for him. He denies history of PE or DVT. He does have leg pain and states he has lymphedema. He denies history of congestive heart failure. He states he has several stents. He was a smoker until approximately year ago. He has been on oxygen for some time and is related to COVID infection. He states he had a long hospitalization and recovery. He denies black or maroon-colored stool. His stool has been dark. It is not described as being sticky and there is no odor to it. He apparently had occult blood in his stool a month ago. Will review old records for verification. Patient denies bruising easily. He denies bleeding gums or hematuria. PE Risk Factors: Negative for Cancer (Diagnosed 23 years ago.), OCP + Smoking + > 35, Prior DVT or PE, Recent immobilization, Recent surgery or Recent travel Prior similar symptoms: Yes (Iron deficiency anemia requiring transfusion) Recent Illness/Hospitalization: No [facility] Medical History Acute respiratory failure with hypoxia Allergic rhinitis Arthritis Asthma Atherosclerosis of coronary artery of [place] heart without angina pectoris Bleeding tendency Cancer Chronic bronchitis Colon polyp COPD (chronic obstructive pulmonary disease) COVID-19 in immunocompromised patient Diabetes DVT (deep venous thrombosis) (05/01/21) Essential hypertension Former smoker FTT (failure to thrive) in adult Gastritis High cholesterol History of basal cell carcinoma History of pilonidal cyst History of pulmonary embolus (PE) (04/30/21) History of stress test HTN (hypertension) Hyperglycemia Nicotine dependence, cigarettes, uncomplicated Non-Hodgkin lymphoma Obesity On home oxygen therapy Physical debility Pneumonia Positive colorectal cancer screening using Cologuard test RA (rheumatoid arthritis) Rhinovirus Tobacco abuse Type 2 diabetes mellitus Ulcer 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 complications Home Medications nitroglycerin 0.4 mg sublingual tablet (Nitrostat) 0.4 mg sublingual Q5M PRN chest pain #30 tabs 09/25/20 [Rx Last Taken Unknown] atorvastatin 40 mg tablet 20 mg PO QHS cholesterol 10/09/21 [History Last Taken 12/07/21] metoprolol tartrate 25 mg tablet 12.5 mg PO BID BP 10/09/21 [History Last Taken 12/08/21] aspirin 81 mg tablet,delayed release 81 mg PO DAILY 12/31/21 [History Last Taken Unknown] budesonide 1 mg/2 mL suspension for nebulization 1 mg (2 mL) inhalation BID #60 mL 06/05/22 [Rx Last Taken Unknown] ipratropium bromide 0.02 % solution for inhalation 2.5 ml inhalation Q6H PRN shortness of breath or wheezing #150 mL 06/25/22 [Rx Last Taken Unknown] finasteride 5 mg tablet 5 mg PO DAILY 08/14/22 [History Last Taken Unknown] tamsulosin 0.4 mg capsule 0.4 mg PO DAILY 08/14/22 [History Last Taken Unknown] ferrous sulfate 325 mg (65 mg iron) tablet 325 mg PO TID iron supplement 09/13/22 [History Last Taken Unknown] multivitamin 1 tab PO DAILY 09/13/22 [History Last Taken Unknown] pantoprazole 40 mg tablet,delayed release 40 mg PO BID #180 tabs 09/23/22 [Rx Last Taken Unknown] sucralfate 1 gram tablet 1 g PO BID #60 tabs 09/23/22 [Rx Last Taken Unknown] escitalopram oxalate 10 mg tablet 10 mg PO DAILY mood 90 days #90 tabs 10/14/22 [Rx Last Taken Unknown] albuterol sulfate 2.5 mg/3 mL (0.083 %) solution for nebulization 2.5 mg (3 mL) inhalation Q4H PRN Sob &/Or Wheezing #540 mL 10/21/22 [Rx Last Taken Unknown] ipratropium bromide 0.02 % solution for inhalation 2.5 ml inhalation Q6H PRN shortness of breath or wheezing #450 mL 10/21/22 [Rx Last Taken Unknown] mirtazapine 15 mg tablet (Remeron) 7.5 mg (1/2 x 15 mg) PO QHS sleep #90 tabs 11/04/22 [Rx Last Taken Unknown] Allergy/AdvReac Type Severity Reaction Status Date / Time levofloxacin [From Levaquin] AdvReac Intermediate diarrhea, Verified 11/15/22 14:33 dizziness, GI upset, weakness Family History Father Arthritis Bleeding disorder Hypertension Kidney disease Cancer Skin Anemia blood clots Emphysema lung Mother Colon cancer Cancer Lung Cancer Diabetes Brother Thyroid disorder Surgical History H/O cardiac catheterization History of coronary artery stent placement (10/22/13) History of embolic filter insertion History of excision of pilonidal cyst History of heart artery stent History of thymectomy Hx of lymph node excision Presence of IVC filter (04/2021) Status post cardiac surgery Social History household members: spouse Smoking Status: Former smoker Tobacco: How many years used: 55 second hand exposure: Yes alcohol intake: current alcohol intake frequency: holidays/special occasions only substance use type: does not use caffeine: Yes Type: coffee Number of servings: 3 what type of physical activity do you participate in: none frequency: does not exercise seatbelt use: always ROS ROS ED Constitutional Constitutional ED: Denies chills, fever(s), sweats or weight loss Eyes Eyes: Denies blurry vision, change in vision or diplopia ENT ENT ED: Denies ear pain, rhinorrhea or sore throat Cardiovascular Cardiovascular: Reports orthopnea; Denies chest pain, palpitations, paroxysmal nocturnal dyspnea or racing heartbeat Respiratory/Chest Respiratory/Chest: Reports cough, dyspnea, dyspnea on exertion, orthopnea and sputum; Denies paroxysmal nocturnal dyspnea Gastrointestinal Gastrointestinal: Denies abdominal pain, melena, nausea or vomiting Genitourinary Genitourinary ED: Denies dysuria, hematuria or urinary frequency Musculoskeletal Musculoskeletal: Denies arthralgias, back pain, myalgias or neck pain Integumentary Denies rash Neurologic Neurologic: Denies headache(s) or paresthesias Psychiatric Psychiatric: Denies anxiety Endocrine Endocrinology: Denies cold intolerance or heat intolerance Hematologic/Lymphatic Hematologic/Lymphatic: Denies easy bleeding or easy bruising EXAM Physical Exam Const Vital Signs: 11/15/22 14:30 11/15/22 15:27 11/15/22 15:47 Temperature 97.8 F Temperature Source Temporal Pulse Rate 83 75 Respiratory Rate 15 16 Respiratory Effort Short of Breath Respiratory Depth Normal Respiratory Pattern Tachypnea Blood Pressure 118/59 L 125/66 H Blood Pressure Mean 78 85 Pulse Ox 93 98 Oxygen Delivery Method Nasal Cannula Nasal Cannula Nasal Cannula Oxygen Flow Rate (L/min) 4 4 4 11/15/22 16:30 11/15/22 17:51 11/15/22 19:03 Temperature Temperature Source Pulse Rate 74 75 86 Respiratory Rate 19 H 20 H 23 H Respiratory Effort Respiratory Depth Respiratory Pattern Blood Pressure 135/67 H 137/70 H 136/69 H Blood Pressure Mean 89 92 91 Pulse Ox 100 99 92 Oxygen Delivery Method Nasal Cannula Nasal Cannula Nasal Cannula Oxygen Flow Rate (L/min) 3 4 4 Positive well nourished and well developed; Negative for cachectic or contractures Constitutional Narrative: Patient has mild shortness of breath with conversation. General Appearance ED: well developed and pallor; Negative for cachectic or contractures Nutritional Appearance: Negative for cachectic HEENT Reports moist mucous membranes HEENT Narrative: Ears are normal. Posterior pharynx is normal. Uvula is midline. Nares patent. There is no drainage. atraumatic Eyes PERRL and EOMs intact bilaterally General Eye ED: Negative for pale conjunctiva or scleral icterus Neck no lymphadenopathy, supple, no meningeal signs and no JVD Resp normal respiratory effort and No clear to auscultation bilaterally Auscultation: rales bilateral base Cardio regular rate, regular rhythm, S1 normal heart sound, S2 normal heart sound and no murmurs GI non-tender, non-distended and no masses Auscultation: normoactive bowel sounds Palpation: soft Back/Spine no CVA tenderness Extremity Negative for normal to inspection Extremity Narrative: There is pallor. There is no leg vein distention, palpable cords, pain along distribution deep venous system, asymmetry or discoloration. General Extremety ED: Yes edema General Extremity: edema Neuro oriented x3, CN's II-XII intact bilaterally and no sensory deficits noted Sensorium / Orientation: alert Speech: speech normal Motor Exam: strength 5/5 throughout Psych Mood & Affect: depressed Skin no wounds and skin turgor normal General Skin Exam: pallor; Negative for jaundice Lesions: no lesions MDM MDM MDM Narrative Medical decision making narrative: Differential diagnosis would include congestive heart failure, pneumonia, exacerbation of COPD, anemia cardiac ischemia. Chest x-ray, EKG and appropriate blood work was obtained to determine cause of his symptoms and presentation. Review of prior records indicates the patient has chronic anemia and stage III kidney disease. There is also remote history of non-Hodgkin's lymphoma. There also is a history of GI bleed. Patient was administered IV Lasix for his pedal edema, bilateral pleural effusions and elevated BNP consistent with heart failure. Patient has chronic kidney disease and is at baseline. History & Record Review Additional record(s) reviewed:: Prior outpatient record, Prior ED visit and Prior labs Lab Data Attestation: I reviewed the patient's lab results. Lab results narrative: Patient's H&H is baseline at 7.9 and 26.7. Indices are unchanged. Basic metabolic panel reveals glucose of 221 with a elevated CO2 of 33 and normal anion gap. BUN and creatinine are slightly elevated 21 and 1.54 with a GFR of 47. BNP is slightly elevated at 298. Troponin is normal at 17. Labs: Laboratory Results - last 24 hr 11/15/22 14:18 WBC 7.3 RBC 2.77 L Hgb 7.9 L Hct 26.7 L MCV 96.4 H MCH 28.5 MCHC 29.6 L RDW Std Deviation 54.0 H RDW Coeff of Rafael 15.8 H Plt Count 274 MPV 10.9 Immature Gran % (Auto) 1.200 H Neut % (Auto) 65.2 Lymph % (Auto) 17.9 L [place] % (Auto) 8.9 Eos % (Auto) 6.0 H Baso % (Auto) 0.8 Absolute Neuts (auto) 4.8 Absolute Lymphs (auto) 1.31 Nucleated RBC % 0 Sodium 139 Potassium 4.7 Chloride 107 Carbon Dioxide 33.0 H Anion Gap -1 L BUN 21 H Creatinine 1.54 H Estim Creat Clear Calc 31.52 Est GFR (MDRD) Af Amer 57 L Est GFR (MDRD) Non-Af 47 L BUN/Creatinine Ratio 13.6 Glucose 221 H Calcium 8.5 Troponin I High Sens 17 B-Natriuretic Peptide 298.1 H Radiography Chest X-Ray - ED: 2 View and Read by ED Physician (2 view chest x-ray. Reviewed interpreted by me at 1600 as bilateral pleural effusions right much greater than left. Unable to determine patient has atelectasis or pneumonia because of the effusion. The film is suboptimal. Cardiac silhouette is obscured on the right. Cardiac size appears normal.) Diagnostic Testing: Clinical Impression(s) from Imaging Studies Chest X-Ray 11/15/22 15:00 IMPRESSION: Bilateral pleural effusions with bibasilar pneumonia/atelectasis Electronically Signed: Antonio Field MD at 16:02 EDT , EKG Initial EKG: Attestation: I personally reviewed and interpreted this EKG as follows: Interpretation: Sinus Rhythm (Rate is 74. The EKG is normal. PA interval is 152 ms. QRS duration 102 ms. QT duration 400 ms. [place] is normal) Treatment and Re-Evaluation :: Walked from room 12 down to room 17. He desaturated 87%. In light of this patient will need aggressive diuresis and admission. Discharge Plan Triage Chief Complaint: Shortness of Breath ED Provider: Jj Garcia Dx/Rx/DC Orders Clinical Impression: Hypoxia, Type 2 diabetes mellitus, Essential hypertension, Hyperlipidemia, Bilateral pleural effusion, Heart failure, Chronic iron deficiency anemia, Chronic kidney disease (CKD), stage III (moderate) Prescriptions: No Action nitroglycerin [Nitrostat] 0.4 mg tablet, sublingual 0.4 mg SUBLINGUAL Q5M PRN (Reason: chest pain) Qty: 30 0RF Rx Instructions: until response; do not exceed 3 doses per episode metoprolol tartrate 25 mg tablet 12.5 mg PO BID multivitamin Tablet 1 tab PO DAILY tamsulosin 0.4 mg capsule 0.4 mg PO DAILY finasteride 5 mg tablet 5 mg PO DAILY ferrous sulfate 325 mg (65 mg iron) tablet 325 mg PO TID atorvastatin 40 mg tablet 20 mg PO QHS aspirin 81 mg Tablet,Delayed Release (Dr/Ec) 81 mg PO DAILY budesonide 1 mg/2 mL suspension for nebulization 1 mg inhalation BID Qty: 60 6RF ipratropium bromide 0.02 % solution 2.5 ml inhalation Q6H PRN (Reason: shortness of breath or wheezing) Qty: 150 6RF pantoprazole 40 mg tablet,delayed release (DR/EC) 40 mg PO BID Qty: 180 3RF sucralfate 1 gram tablet 1 g PO BID Qty: 60 1RF escitalopram oxalate 10 mg tablet 10 mg PO DAILY 90 Days Qty: 90 3RF albuterol sulfate 2.5 mg /3 mL (0.083 %) solution for nebulization 2.5 mg inhalation Q4H PRN (Reason: Sob &/Or Wheezing) Qty: 540 3RF ipratropium bromide 0.02 % solution 2.5 ml inhalation Q6H PRN (Reason: shortness of breath or wheezing) Qty: 450 3RF mirtazapine [Remeron] 15 mg tablet 7.5 mg PO QHS Qty: 90 1RF Primary Care Provider: Donna Will Referrals: Donna Will MD [Primary Care Provider] - Disposition Disposition: Acute Care Hospital [facility]
--- NOTE | 2022-11-15 15:00 | RAD_ITS ---
EXAM: XR CHEST, 2 VIEWS CLINICAL INDICATION: dyspnea TECHNIQUE: Frontal and lateral views of the chest. COMPARISON: XR Chest dated 02/15/2022 FINDINGS: LUNGS AND PLEURAL SPACES: Bilateral pleural effusions noted moderate in size on the right and small on the left. Effusions associated with consolidation or atelectasis of the lower lobes. No pneumothorax. HEART: Surgical changes of coronary artery bypass graft (CABG). Normal heart size. MEDIASTINUM: No mediastinal or hilar mass. BONES/JOINTS: No acute abnormality. RAD/Chest PA and Lateral IMPRESSION: Bilateral pleural effusions with bibasilar pneumonia/atelectasis Electronically Signed: Antonio Field MD at 16:02 EDT ,
[2022-11-15 15:05] LABS: Absolute Lymphocyte Count 1.31 X10^3/uL (0.83-4.51); Absolute Neutrophil Count 4.8 X10^3/uL (2.0-7.7); Basophil# 0.06 X10^3/uL; Basophil% 0.8 % (0-1); Eosinophil# 0.44 X10^3/uL; Hematocrit 26.7 % (40-54); Hemoglobin 7.9 g/dL (13.0-16.5); Lymphocyte # 1.31 X10^3/ul (0.83-4.51); Lymphocyte % 17.9 % (19-41); Mean Corp Hgb Conc 29.6 g/dL (32-36); Mean Corpuscular Hgb 28.5 pg (27.0-32.0); Mean Corpuscular Volume 96.4 fL (80-94); Mean Platelet Vol. 10.9 fl (6.2-12.0); Monocyte# 0.65 X10^3/uL; Monocyte% 8.9 % (0-10); NRBC Flagged by Analyzer 0 % (0-5); Neutrophil # 4.76 X10^3/uL (2.7-7.7); Neutrophil % 65.2 % (47-70); Platelet Count 274 K/mm3 (150-450); RBC Distribution Width CV 15.8 % (11.6-14.6); Red Blood Count 2.77 M/mm3 (4.6-6.2); White Blood Count 7.3 K/mm3 (4.4-11.0)
[2022-11-15 15:24] LABS: Anion Gap -1 (5-15); BUN 21 mg/dL (7-18); BUN/Creat Ratio 13.6 RATIO (10-20); Calcium,Total 8.5 mg/dL (8.5-10.1); Chloride 107 mmol/L (98-107); Creatinine, Serum 1.54 mg/dL (0.70-1.30); EST Glomerular Filtration Rate 47 mL/min (>60); Est Glom Filt Rate - Afr Amer 57 mL/min (>60); Estimated Creatinine Clearance 31.52 ml/min; Glucose 221 mg/dL (74-106); Potassium 4.7 mmol/L (3.5-5.1); Sodium Level 139 mmol/L (136-145); Troponin-I HS 17 pg/mL (3.0-78.0)
[2022-11-15 15:26] LABS: BNP,B-Type NATRIURETIC PEPTIDE 298.1 pg/mL (0-100)
--- NOTE | 2022-11-15 19:05 | PCM.HP.STD ---
HPI - General General Date of Admission: 11/15/22 Date of Service: 11/15/22 Chief Complaint: Acute on chronic hypoxic respiratory failure HPI Narrative SAL ALONZO, is a 72 M with history of COPD with chronic hypoxic respiratory failure on home 4 L nasal cannula, previous severe COVID infection with resultant pulmonary fibrosis, CAD s/p stenting, iron deficiency anemia, history of duodenal and colonic angiodysplastic bleeding lesions, CKD stage III, history of Hodgkin's lymphoma s/p ABVD and radiation in 2000, type 2 diabetes, hypertension and former tobacco use who presented to [facility] ED on 11/13/2022 with worsening dyspnea. Patient seen at bedside in the ED. Sitting comfortably at edge of the bed, conversing normally, no acute distress. No increased work of breathing at rest on his home 4 L nasal cannula, however did notably have dropped his oxygen saturations with conversation. Patient states that he has been having worsening shortness of breath with exertion over the last 1 to 2 weeks at home. Also reports shortness of breath with lying flat. He has had a cough with white sputum production during this time, which is new for him. He is a former smoker, quit in February 2021. He denies any chest pain during this time. Denies any fevers or chills. Denies any notable weight loss or weight gain. Does have history of lymphedema with some leg pain, patient feels that this is stable. Otherwise denies any acute concerns. Vitals in ED notable for oxygen saturations in the high 80s on 4 L nasal cannula, dropped to high 70s to low 80s with minimal exertion, otherwise unremarkable. Labs notable for hemoglobin 7.9, WBC count 7.3, creatinine 1.54, BMP otherwise normal, glucose 221, BNP 298. Chest x-ray showed mild bilateral pulm edema, bilateral pleural effusions of moderate size on right and small on left, bibasilar atelectasis. [facility] Medical History Acute respiratory failure with hypoxia Allergic rhinitis Arthritis Asthma Atherosclerosis of coronary artery of [place] heart without angina pectoris Bleeding tendency Cancer Chronic bronchitis Colon polyp COPD (chronic obstructive pulmonary disease) COVID-19 in immunocompromised patient Diabetes DVT (deep venous thrombosis) (05/01/21) Essential hypertension Former smoker FTT (failure to thrive) in adult Gastritis High cholesterol History of basal cell carcinoma History of pilonidal cyst History of pulmonary embolus (PE) (04/30/21) History of stress test HTN (hypertension) Hyperglycemia Nicotine dependence, cigarettes, uncomplicated Non-Hodgkin lymphoma Obesity On home oxygen therapy Physical debility Pneumonia Positive colorectal cancer screening using Cologuard test RA (rheumatoid arthritis) Rhinovirus Tobacco abuse Type 2 diabetes mellitus Ulcer 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 complications Home Medications nitroglycerin 0.4 mg sublingual tablet (Nitrostat) 0.4 mg sublingual Q5M PRN chest pain #30 tabs 09/25/20 [Rx Last Taken Unknown] atorvastatin 40 mg tablet 20 mg PO QHS cholesterol 10/09/21 [History Last Taken 12/07/21] metoprolol tartrate 25 mg tablet 12.5 mg PO BID BP 10/09/21 [History Last Taken 12/08/21] aspirin 81 mg tablet,delayed release 81 mg PO DAILY 12/31/21 [History Last Taken Unknown] ipratropium bromide 0.02 % solution for inhalation 2.5 ml inhalation Q6H PRN shortness of breath or wheezing #150 mL 06/25/22 [Rx Last Taken Unknown] finasteride 5 mg tablet 5 mg PO DAILY 08/14/22 [History Last Taken Unknown] tamsulosin 0.4 mg capsule 0.4 mg PO DAILY 08/14/22 [History Last Taken Unknown] ferrous sulfate 325 mg (65 mg iron) tablet 325 mg PO TID iron supplement 09/13/22 [History Last Taken Unknown] multivitamin 1 tab PO DAILY 09/13/22 [History Last Taken Unknown] pantoprazole 40 mg tablet,delayed release 40 mg PO BID #180 tabs 09/23/22 [Rx Last Taken Unknown] sucralfate 1 gram tablet 1 g PO BID #60 tabs 09/23/22 [Rx Last Taken Unknown] escitalopram oxalate 10 mg tablet 10 mg PO DAILY mood 90 days #90 tabs 10/14/22 [Rx Last Taken Unknown] albuterol sulfate 2.5 mg/3 mL (0.083 %) solution for nebulization 2.5 mg (3 mL) inhalation Q4H PRN Sob &/Or Wheezing #540 mL 10/21/22 [Rx Last Taken Unknown] mirtazapine 15 mg tablet (Remeron) 7.5 mg (1/2 x 15 mg) PO QHS sleep #90 tabs 11/04/22 [Rx Last Taken Unknown] budesonide 1 mg/2 mL suspension for nebulization 1 mg inhalation TID 11/15/22 [History Last Taken Unknown] Allergy/AdvReac Type Severity Reaction Status Date / Time levofloxacin [From Levaquin] AdvReac Intermediate diarrhea, Verified 11/15/22 14:33 dizziness, GI upset, weakness Family History Father Arthritis Bleeding disorder Hypertension Kidney disease Cancer Skin Anemia blood clots Emphysema lung Mother Colon cancer Cancer Lung Cancer Diabetes Brother Thyroid disorder Surgical History H/O cardiac catheterization History of coronary artery stent placement (10/22/13) History of embolic filter insertion History of excision of pilonidal cyst History of heart artery stent History of thymectomy Hx of lymph node excision Presence of IVC filter (04/2021) Status post cardiac surgery Social History household members: spouse Smoking Status: Former smoker Tobacco: How many years used: 55 second hand exposure: Yes alcohol intake: current alcohol intake frequency: holidays/special occasions only substance use type: does not use caffeine: Yes Type: coffee Number of servings: 3 what type of physical activity do you participate in: none frequency: does not exercise seatbelt use: always ROS Constitutional Constitutional: Reports fatigue; Denies change in weight, chills, fever(s), malaise, night sweats or weakness Eyes Eyes: Denies change in vision Cardiovascular Cardiovascular: Reports dyspnea on exertion and orthopnea; Denies chest pain, edema, lightheadedness, palpitations or syncope Respiratory/Chest Respiratory/Chest: Reports productive cough and shortness of breath with exertion; Denies shortness of breath at rest or wheezing Gastrointestinal Gastrointestinal: Denies abdominal pain Vital Signs Vital Signs Vital Signs: 11/15/22 14:30 11/15/22 15:27 11/15/22 15:47 Temperature 97.8 F Temperature Source Temporal Pulse Rate 83 75 Respiratory Rate 15 16 Respiratory Effort Short of Breath Respiratory Depth Normal Respiratory Pattern Tachypnea Blood Pressure 118/59 L 125/66 H Blood Pressure Mean 78 85 Pulse Ox 93 98 Oxygen Delivery Method Nasal Cannula Nasal Cannula Nasal Cannula Oxygen Flow Rate (L/min) 4 4 4 11/15/22 16:30 11/15/22 17:51 11/15/22 19:03 Temperature Temperature Source Pulse Rate 74 75 86 Respiratory Rate 19 H 20 H 23 H Respiratory Effort Respiratory Depth Respiratory Pattern Blood Pressure 135/67 H 137/70 H 136/69 H Blood Pressure Mean 89 92 91 Pulse Ox 100 99 92 Oxygen Delivery Method Nasal Cannula Nasal Cannula Nasal Cannula Oxygen Flow Rate (L/min) 3 4 4 Weight Weight: 52.163 kg Body Mass Index (BMI) 16.0 Physical Exam Const alert and oriented x3 Constitutional Narrative: Pleasant elderly male, obese, chronically ill-appearing, sitting comfortably at edge of bed, conversing normally, no acute distress. General Appearance: cooperative and comfortable HEENT normocephalic, head/scalp atraumatic, hearing grossly normal bilaterally, nasal mucous membranes and turbinates normal and moist oral mucous membranes Eyes PERRL, EOMs intact bilaterally and conjunctivae normal Neck full ROM, no lymphadenopathy and supple Lymph Lymphatic: no lymphadenopathy noted Chest inspection of chest normal Resp Resp Narrative: Satting in low 80s on 4 L nasal cannula, no increased work of breathing noted. Crackles noted bilaterally. Decreased lung sounds at lung bases, worse on right. No wheezing noted. Cardio regular rate, regular rhythm, no murmurs and peripheral pulses 2+ throughout GI normal to inspection, nondistended, normoactive bowel sounds, soft to palpation, non-tender and non-distended Back/Spine normal ROM Extremity normal to inspection and full ROM Extremity Narrative: Nonpitting edema noted bilaterally. Skin no rashes or lesions noted Psych mental status grossly normal Results Lab / Micro Data 11/15/22 14:18 11/15/22 14:18 Labs: Laboratory Results - last 24 hr 11/15/22 14:18: WBC 7.3, RBC 2.77 L, Hgb 7.9 L, Hct 26.7 L, MCV 96.4 H, MCH 28.5, MCHC 29.6 L, RDW Std Deviation 54.0 H, RDW Coeff of Rafael 15.8 H, Plt Count 274, MPV 10.9, Immature Gran % (Auto) 1.200 H, Neut % (Auto) 65.2, Lymph % (Auto) 17.9 L, [place] % (Auto) 8.9, Eos % (Auto) 6.0 H, Baso % (Auto) 0.8, Absolute Neuts (auto) 4.8, Absolute Lymphs (auto) 1.31, Nucleated RBC % 0, Sodium 139, Potassium 4.7, Chloride 107, Carbon Dioxide 33.0 H, Anion Gap -1 L, BUN 21 H, Creatinine 1.54 H, Estim Creat Clear Calc 31.52, Est GFR (MDRD) Af Amer 57 L, Est GFR (MDRD) Non-Af 47 L, BUN/Creatinine Ratio 13.6, Glucose 221 H, Calcium 8.5, Troponin I High Sens 17, B-Natriuretic Peptide 298.1 H Radiology Impression Chest X-Ray 11/15/22 15:00 IMPRESSION: Bilateral pleural effusions with bibasilar pneumonia/atelectasis Electronically Signed: Antonio Field MD at 16:02 EDT , Assessment & Plan Assessment/Plan (1) Acute and chronic respiratory failure with hypoxia: PLAN: Plan Patient is a 72-year-old male with history of COPD with chronic hypoxic respiratory failure on home 4 L nasal cannula, CAD s/p stenting, iron deficiency anemia, history of duodenal and colonic angiodysplastic bleeding lesions, CKD stage III, history of Hodgkin's lymphoma s/p ABVD and radiation in 2000, type 2 diabetes, hypertension and former tobacco use who presented to [facility] ED on 11/13/2022 with worsening dyspnea. 1. Volume overload with bilateral pleural effusions, acute on chronic hypoxic respiratory failure Highest concern is for new onset heart failure. Known history of COPD on home 4 L nasal cannula. Presented with worsening shortness of breath with exertion over the last 1 to 2 weeks. Chest x-ray on admit shows mild bilateral pulm edema, bilateral pleural effusions of moderate size on right and small on left, bibasilar atelectasis. BNP 300. Notably with history of CAD s/p stenting as noted below, no history of heart failure. Most recent echo 04/23/2021 showed an EF of 65%, stage I diastolic dysfunction, mild aortic stenosis, otherwise unremarkable. Satting in high 80s on home 4 L nasal cannula in the ED, has significant desaturations to the high 70s to low 80s with minimal exertion. ? Admit under inpatient status to PCU. Echo ordered. Given 1 dose of IV Lasix 40 mg in the ED, will schedule IV Lasix 40 mg twice daily for now. Monitor urine output. Monitor patient's oxygen saturations with exertion. 2. History of COPD on home 4 L nasal cannula COPD secondary to extensive smoking history. Quit smoking about 1.5 years ago[address] Follow[address] with Dr. Singleton with pulmonology outpatient. On home budesonide inhaler 3 times daily, DuoNebs as needed. Patient has been using his short acting inhaler more frequently over the past few days, without any relief. No wheezing noted on physical exam. No concern for COPD exacerbation at this time. ? Continue home inhalers. Suspect acute worsening of hypoxia secondary to volume overload as noted above, treatment with diuresis as above. 3. Chronic anemia, history of GI bleed Stable. History of severe iron deficiency anemia secondary to previous GI bleeds in setting of previously identified duodenal and colonic angiodysplastic lesions. Also likely has component of anemia secondary to chronic kidney disease. Follows with Dr. Zapata with hematology/oncology, last office visit on 10/29/2022, see this office visit note for further details. Patient notably was found to have continued iron deficiency with ferritin around 30 in early September, has received 3 transfusions of IV iron since that time. Hemoglobin 7.9 on admit, at his baseline of around 7-8. ? We will repeat iron studies to assess for response to IV iron infusions. Monitor hemoglobin, transfuse for hemoglobin less than 7. Continue home p.o. iron supplement. 4. History of CAD s/p stenting Follows with Dr. Mello with cardiology, last office visit on 09/13/2022. S/p PCI to the LAD and RCA in 2001, followed by PCI of the circumflex in 2013. Notably with no history of heart failure as noted above. ? Continue home aspirin, atorvastatin, Lopressor. Work-up for possible heart failure as noted above. Chronic medical conditions: ? Type 2 diabetes: Does not appear to be on any home medications for this. Blood glucose of 221 in the ED. Last noted hemoglobin A1c of 8.5% back in November 2021. Repeat A1c ordered. We will start sliding scale insulin while admitted. ? CKD stage III: Creatinine 1.54 on admit, baseline creatinine appears to be around 1.4-1.6. Monitor BMP. ? BPH: Continue home Flomax and finasteride. ? Depression/anxiety: Continue home escitalopram and mirtazapine at night. DVT prophylaxis: Lovenox CODE STATUS: Full code, verified Expected disposition: Home, TBD Total clinical time spent by myself addressing the patient's medical issues, reviewing all the data, and collaborating with patient's care team: 55 minutes. Charges/Coding Visit Charges Inpatient E&M: 46173 Init Hosp L2
[2022-11-15] MEDS: Furosemide 40 MG/4 ML Vial IV (19:22)
--- NOTE | 2022-11-15 20:14 | ECHOCS_ITS ---
Reason For Study: Dyspnea/SOB Procedure This was a 2D Doppler, Color Flow transthoracic echocardiogram. The study was technically difficult. Contrast injection was performed. Exam performed portable in patient room. Left Ventricle Normal LV size. The estimated ejection fraction is 40 %. There is evidence of diastolic dysfunction. There is moderate global hypokinesis of the left ventricle. Right Ventricle Normal RV size. Normal systolic function. Atria Normal left atrium. Normal right atrium. No doppler evidence for ASD. Mitral Valve There is no mitral valve stenosis. No mitral valve insufficiency. Tricuspid Valve There is no tricuspid stenosis. No tricuspid valve insufficiency. Unable to estimate RV systolic pressure due to inadequate jet, pulmonary artery pressure probably normal. Aortic Valve There is no aortic stenosis. No aortic valve insufficiency. Pulmonic Valve There is no pulmonic valvular stenosis. No pulmonic valve insufficiency. Great Vessels Normal aortic root. Pericardium/Pleural No pericardial effusion. Medication Diluted definity 3ml given slow IV push to enhance endocardial definition. MMode/2D Measurements & Calculations LVIDd: 5.7 cm IVSd: 0.92 cm LA dimension: 3.8 cm LVIDs: 4.6 cm LVPWd: 0.93 cm FS: 18.7 % LAV(MOD-bp): 50.9 ml LVAd ap4: 44.6 cm2 SV(MOD-sp4): 51.8 ml LAV(MOD-bp) Indexed: 22.1 ml/m2 LVLd ap4: 9.3 cm LAV(MOD-sp2): 61.0 ml EDV(MOD-sp4): 174.6 ml LAV(MOD-sp4): 40.8 ml EDV(sp4-el): 181.1 ml LVAs ap4: 35.6 cm2 LVLs ap4: 8.7 cm ESV(MOD-sp4): 122.8 ml ESV(sp4-el): 124.4 ml EF(MOD-sp4): 29.7 % EF(sp4-el): 31.3 % SV(sp4-el): 56.7 ml LA A4 area: 16.6 cm2 RA A4 area: 14.0 cm2 Time Measurements MV dec time: 0.27 sec Doppler Measurements & Calculations MV E max oliver: 111.9 cm/sec Lat Peak E' Oliver: 5.9 cm/sec Med Peak E' Oliver: 5.0 cm/sec MV A max oliver: 85.6 cm/sec E/E' lat: 19.0 E/E' med: 22.6 MV E/A: 1.3 MV V2 max: 126.5 cm/sec MV P1/2t max oliver: 127.5 cm/sec Ao V2 max: 89.6 cm/sec MV max P.4 mmHg MV P1/2t: 83.6 msec Ao max P.2 mmHg MV V2 mean: 73.7 cm/sec Ao V2 mean: 64.7 cm/sec MV mean P.6 mmHg MV dec slope: 446.8 cm/sec2 Ao mean P.9 mmHg MV V2 VTI: 39.2 cm MVA(P1/2t): 2.6 cm2 Ao V2 VTI: 22.2 cm AV (velocity ratio): 0.90 LV V1 max: 88.1 cm/sec PA V2 max: 85.4 cm/sec LV V1 max P.1 mmHg LV V1 mean P.7 mmHg LV V1 mean: 61.2 cm/sec LV V1 VTI: 19.9 cm ECHO/Echo Complete W/ Contrast Interpretation Summary The estimated ejection fraction is 40 %. There is moderate global hypokinesis of the left ventricle. There is evidence of diastolic dysfunction. Ordering Physician: Loki Lozoya Referring Physician: Donna Will M.D. Performed By: Nathan Correa RCS
[2022-11-15 21:18] LABS: Ferritin 111 ng/mL (26-388); Iron 51 ug/dL (65-175); Iron Binding Capacity,Total 243 ug/dL (250-450); Troponin-I HS 15 pg/mL (3.0-78.0)
[2022-11-15 22:06] LABS: Hemoglobin A1c 8.6 % (3.8-5.6)
[2022-11-15] MEDS: Metoprolol Tartrate 25 MG Tablet 12.5 MG PO (22:39)
[2022-11-15] MEDS: Sucralfate 1 GM Tablet PO (22:40)
[2022-11-15] MEDS: Mirtazapine 15 MG Tablet 7.5 MG PO (22:41)
[2022-11-15] MEDS: Pantoprazole Sodium 40 MG Tablet PO (22:41)
[2022-11-15] MEDS: Atorvastatin Calcium 20 MG Tablet PO (22:44)
[2022-11-15] MEDS: Budesonide Respules 0.5 MG/2 ML AMPUL.NEB. 1 MG INHALATION (23:20)
[2022-11-15] MEDS: Ipratropium/Albuterol Sulfate 3 ML AMPUL.NEB INHALATION (23:20)
[2022-11-15 23:28] LABS: Bedside Glucose 205 mg/dL (74-106)
[2022-11-16] VITALS (14 sets, daily range): BP systolic 101–141; BP diastolic 56–72; PULSE 60–80; RESP 16–20; TEMP 36.6–37.1; O2SAT 92–98; BMI 20.7
[2022-11-16 05:00] LABS: Hematocrit 24.4 % (40-54); Mean Corp Hgb Conc 28.7 g/dL (32-36); Mean Corpuscular Hgb 27.6 pg (27.0-32.0); Mean Corpuscular Volume 96.1 fL (80-94); Mean Platelet Vol. 10.4 fl (6.2-12.0); Platelet Count 239 K/mm3 (150-450); RBC Distribution Width CV 15.8 % (11.6-14.6); RBC Distribution Width SD 53.7 fl (35.1-43.9); Red Blood Count 2.54 M/mm3 (4.6-6.2); White Blood Count 6.9 K/mm3 (4.4-11.0)
[2022-11-16 05:34] LABS: Anion Gap 2 (5-15); BUN 21 mg/dL (7-18); BUN/Creat Ratio 14.9 RATIO (10-20); Calcium,Total 8.1 mg/dL (8.5-10.1); Chloride 107 mmol/L (98-107); Creatinine, Serum 1.41 mg/dL (0.70-1.30); EST Glomerular Filtration Rate 52 mL/min (>60); Est Glom Filt Rate - Afr Amer 63 mL/min (>60); Estimated Creatinine Clearance 44.61 ml/min; Glucose 194 mg/dL (74-106); Potassium 4.5 mmol/L (3.5-5.1); Sodium Level 141 mmol/L (136-145)
[2022-11-16] MEDS: Sucralfate 1 GM Tablet PO ×2 (05:45→23:22)
[2022-11-16] MEDS: Insulin Lispro 100 UNIT/ML INSULN.PEN SC ×4 (06:47→23:22)
[2022-11-16 07:07] LABS: Bedside Glucose 161 mg/dL (74-106)
[2022-11-16] MEDS: Ipratropium/Albuterol Sulfate 3 ML AMPUL.NEB INHALATION ×2 (08:16→19:50)
[2022-11-16] MEDS: Budesonide Respules 0.5 MG/2 ML AMPUL.NEB. 1 MG INHALATION ×2 (08:17→19:49)
--- NOTE | 2022-11-16 08:32 | PN.HOSP_ITS ---
Reason for Visit Reason for Visit: Diagnoses Acute and chronic respiratory failure with hypoxia (11/15/22) Subjective Subjective Patient is a 71-year-old gentleman admitted with progressive shortness of breath and assessment of acute congestive heart failure made admitted to monitored bed for further management Objective Data Objective Data Vital Signs: Vital Signs Temp Pulse Resp BP Pulse Ox O2 Del Method O2 Flow Rate 97.9 F 60 16 101/65 98 Nasal Cannula 4 11/16/22 04:52 11/16/22 04:52 11/16/22 04:52 11/16/22 04:52 11/16/22 04:52 11/16/22 05:43 11/16/22 05:43 Oxygen Flow Rate (L/min) 4 Oxygen Delivery Method Nasal Cannula Weight: 67.6 kg Body Mass Index (BMI) 20.7 Intake & Output: Intake and Output for Last 24 Hours 11/14/22 11/15/22 11/16/22 23:59 23:59 23:59 Intake Total 440 / 440 Output Total 1350 / 1350 Balance -910 / -910 Lab / Micro Data 11/16/22 04:40 11/16/22 04:40 Labs: Laboratory Results - last 24 hr 11/15/22 14:18: WBC 7.3, RBC 2.77 L, Hgb 7.9 L, Hct 26.7 L, MCV 96.4 H, MCH 28.5, MCHC 29.6 L, RDW Std Deviation 54.0 H, RDW Coeff of Rafael 15.8 H, Plt Count 274, MPV 10.9, Immature Gran % (Auto) 1.200 H, Neut % (Auto) 65.2, Lymph % (Auto) 17.9 L, [place] % (Auto) 8.9, Eos % (Auto) 6.0 H, Baso % (Auto) 0.8, Absolute Neuts (auto) 4.8, Absolute Lymphs (auto) 1.31, Nucleated RBC % 0, Sodium 139, Potassium 4.7, Chloride 107, Carbon Dioxide 33.0 H, Anion Gap -1 L, BUN 21 H, Creatinine 1.54 H, Estim Creat Clear Calc 31.52, Est GFR (MDRD) Af Amer 57 L, Est GFR (MDRD) Non-Af 47 L, BUN/Creatinine Ratio 13.6, Glucose 221 H, Calcium 8.5, Troponin I High Sens 17, B-Natriuretic Peptide 298.1 H 11/15/22 20:34: Iron 51 L, TIBC 243 L, Iron Saturation 21.0, Ferritin 111, Troponin I High Sens 15 11/15/22 22:46: POC Glucose 205 H 11/15/22 : Hemoglobin A1c 8.6 H 11/16/22 04:40: WBC 6.9, RBC 2.54 L, Hgb 7.0 L, Hct 24.4 L, MCV 96.1 H, MCH 27.6, MCHC 28.7 L, RDW Std Deviation 53.7 H, RDW Coeff of Rafael 15.8 H, Plt Count 239, MPV 10.4, Sodium 141, Potassium 4.5, Chloride 107, Carbon Dioxide 32.0, Anion Gap 2 L, BUN 21 H, Creatinine 1.41 H, Estim Creat Clear Calc 44.61, Est GFR (MDRD) Af Amer 63, Est GFR (MDRD) Non-Af 52 L, BUN/Creatinine Ratio 14.9, Glucose 194 H, Calcium 8.1 L 11/16/22 06:45: POC Glucose 161 H Radiography Diagnostic Testing: Radiology Impression Chest X-Ray 11/15/22 15:00 IMPRESSION: Bilateral pleural effusions with bibasilar pneumonia/atelectasis Electronically Signed: Antonio Field MD at 16:02 EDT , Physical Exam Narrative GENERAL: cooperative HEENT: Atraumatic; normocephalic EYES; Anicteric, Normal Conjunctiva NECK; supple, normal thyroid, RESPIRATORY: Diminished to auscultation CARDIOVASCULAR: Regular S1 S2, GI: soft, normoactive bowel sounds, : No Renal angle tenderness; EXTREMITIES: No edema, no clubbing, MUSCULOSKELETAL: no muscle wasting NEURO: Awake; no lateralizing signs. SKIN: No Rash PSYCH; Flat affect Assessment & Plan Assessment/Plan (1) Acute and chronic respiratory failure with hypoxia: PLAN: Plan Patient is a 71-year-old gentleman admitted with progressive shortness of breath and assessment of acute congestive heart failure made admitted to monitored bed for further management 1. Acute hypoxia ? Secondary to acute on chronic congestive heart failure with preserved ejection fraction. Echo from 04/23/2021 demonstrated EF of 65%. Patient admitted to monitored bed placed on strict input and output, daily weight, IV diuretics and repeat echo ordered 2.? COPD exacerbation ? Mild exacerbation bronchodilator treatments in addition to above 3.? Anemia ? Secondary to chronic blood loss anemia. Patient has history of duodenal and colonic angiodysplastic bleeding lesion. With patient deemed to be symptomatic i.e. dyspnea and CHF an order was given for patient to be transfused with 1 unit PRBC 4.? Chronic hypoxic respiratory failure ? Secondary to suspected pulmonary fibrosis from prior COVID-19 infection.? Patient currently on supplemental oxygen 5.? 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 Previously treated with apixaban.? Patient did not tolerate apixaban as a result of GI bleed he underwent IVC filter placement on 05/02/2021 6.? Diabetes mellitus type II Managed with diet 7.? Rheumatoid arthritis Patient previously treated with rituximab as outpatient 8.? Non Hodgkin's lymphoma ?Apparently in remission 9.? Coronary artery disease ?With previous PCI of an LAD RCA and mid circumflex lesions 10.? Dyslipidemia -Patient is on statin therapy, continued at home dose 11.? Hypertension - Blood pressure controlled, home medications continued with dose adjustment as needed 12.? Depression ? Patient is on SSRI 13. BPH ? Patient is on tamsulosin discontinued 14. DVT prophylaxis ? Bilateral SCD, Lovenox discontinued given patient's significant anemia Time spent in the patient's overall evaluation,decision-making process, review of diagnostic data, adjustment of management, discussion with other providers, nursing nursing and ancillary staff involved in patient's care documentation, 55 Minutes Charges/Coding Visit Charges Inpatient E&M: [id number] [facility] [place] Hosp L3
--- NOTE | 2022-11-16 09:10 | CASEMGMT ---
RN CM Face to Face with patient for initial transition planning/care coordination assessment. RN CM introduced self and role at [facility]. Patient lying in bed, alert and oriented. Patient willing to participate in assessment and is able to answer all questions appropriately. Care providers, pharmacy, and demographics verified. Patient wishes to discharge home with [facility]. Patient prefers [facility] and declined [facility] list. Referral sent to [facility] via [facility], awaiting acceptance. Patient states he has no further needs or concerns at this time. CM to follow for discharge planning needs that may arise. PCP: Suman Specialists: Anna Marie Singleton, director ship; Riaz, track coach; Benny, oncologist; Theodore, urologist; Preferred Pharmacy: [facility] Insurance: [facility] Prescription Benefit: yes Living Will/HPOA: yes, [place] HOFFMANN: , son Living Arrangements: Patient lives with in a 2 story home with bed and bath on first floor, 2 steps and railing to enter the home. Transportation: self, DME/HHC: Patient has shower chair, raised toilet, hospital bed, lift chair, grab bars, walker, rollator, wheelchair, nebulizer, pulse ox, glucometer, and home oxygen through [facility] at 4lpm with portability. Disposition Plan: Patient to discharge home with [facility], family support and follow up plans in place. Brittani VALENTINE, RN, CM
[2022-11-16] MEDS: Furosemide 40 MG/4 ML Vial IV ×2 (09:55→18:10)
[2022-11-16] MEDS: Enoxaparin 40 MG/0.4 ML Syringe SC (09:55)
[2022-11-16] MEDS: Tamsulosin HCl 0.4 MG Capsule PO (09:56)
[2022-11-16] MEDS: 0.9% Saline Lock 10 ML Syringe IV ×2 (09:56→18:10)
[2022-11-16] MEDS: Aspirin E.C. 81 MG Tablet PO (09:56)
[2022-11-16] MEDS: Escitalopram Oxalate 10 MG Tablet PO (09:57)
[2022-11-16] MEDS: Finasteride 5 MG Tablet PO (09:57)
[2022-11-16] MEDS: Metoprolol Tartrate 25 MG Tablet 12.5 MG PO ×2 (09:57→23:23)
[2022-11-16] MEDS: Pantoprazole Sodium 40 MG Tablet PO ×2 (09:57→23:23)
[2022-11-16 12:22] LABS: Bedside Glucose 235 mg/dL (74-106)
[2022-11-16 17:19] LABS: Bedside Glucose 217 mg/dL (74-106)
[2022-11-16] MEDS: Mirtazapine 15 MG Tablet 7.5 MG PO (23:24)
[2022-11-16] MEDS: Atorvastatin Calcium 20 MG Tablet PO (23:24)
[2022-11-17 00:05] LABS: Bedside Glucose 185 mg/dL (74-106)
[2022-11-17 04:35] LABS: Absolute Lymphocyte Count 1.51 X10^3/uL (0.83-4.51); Absolute Neutrophil Count 4.7 X10^3/uL (2.0-7.7); Basophil# 0.05 X10^3/uL; Basophil% 0.6 % (0-1); Eosinophil# 0.51 X10^3/uL; Eosinophils% 6.6 % (0-5); Hematocrit 26.9 % (40-54); Hemoglobin 8.1 g/dL (13.0-16.5); Lymphocyte # 1.51 X10^3/ul (0.83-4.51); Lymphocyte % 19.4 % (19-41); Mean Corp Hgb Conc 30.1 g/dL (32-36); Mean Corpuscular Hgb 28.3 pg (27.0-32.0); Mean Corpuscular Volume 94.1 fL (80-94); Mean Platelet Vol. 10.9 fl (6.2-12.0); Monocyte# 0.93 X10^3/uL; NRBC Flagged by Analyzer 0.3 % (0-5); Neutrophil # 4.69 X10^3/uL (2.7-7.7); Neutrophil % 60.4 % (47-70); Platelet Count 240 K/mm3 (150-450); RBC Distribution Width CV 15.8 % (11.6-14.6); RBC Distribution Width SD 53.9 fl (35.1-43.9); Red Blood Count 2.86 M/mm3 (4.6-6.2); White Blood Count 7.8 K/mm3 (4.4-11.0)
[2022-11-17 04:44] VITALS: BMI 34.0
[2022-11-17 05:52] LABS: Anion Gap 2 (5-15); BUN 26 mg/dL (7-18); BUN/Creat Ratio 15.8 RATIO (10-20); Calcium,Total 8.2 mg/dL (8.5-10.1); Chloride 104 mmol/L (98-107); Creatinine, Serum 1.65 mg/dL (0.70-1.30); EST Glomerular Filtration Rate 44 mL/min (>60); Est Glom Filt Rate - Afr Amer 53 mL/min (>60); Estimated Creatinine Clearance 42.47 ml/min; Glucose 143 mg/dL (74-106); Magnesium 2.1 mg/dL (1.6-2.6); Phosphorus 3.8 mg/dL (2.5-4.9); Potassium 4.2 mmol/L (3.5-5.1); Sodium Level 139 mmol/L (136-145)
[2022-11-17 05:53] VITALS: BP 111/49; PULSE 67; RESP 20; TEMP 36.4; O2SAT 94
[2022-11-17] MEDS: Sucralfate 1 GM Tablet PO (05:59)
[2022-11-17] MEDS: Budesonide Respules 0.5 MG/2 ML AMPUL.NEB. 1 MG INHALATION (06:52)
[2022-11-17 06:58] LABS: Bedside Glucose 127 mg/dL (74-106)
--- NOTE | 2022-11-17 08:31 | PCM.PN.HOSP ---
Reason for Visit Reason for Visit: Diagnoses Acute and chronic respiratory failure with hypoxia (11/15/22) Subjective Subjective Patient seen admitted some improvement in overall condition. 2D echo obtained as part of patient's evaluation demonstrated EF of 40% with moderate global hypokinesis of the left ventricle Objective Data Objective Data Vital Signs: Vital Signs Temp Pulse Resp BP Pulse Ox O2 Del Method O2 Flow Rate 97.5 F L 67 20 H 111/49 L 94 Nasal Cannula 4 11/17/22 05:53 11/17/22 05:53 11/17/22 05:53 11/17/22 05:53 11/17/22 05:53 11/17/22 05:53 11/17/22 05:53 Oxygen Flow Rate (L/min) 4 Oxygen Delivery Method Nasal Cannula Weight: 110.5 kg Body Mass Index (BMI) 34.0 Intake & Output: Intake and Output for Last 24 Hours 11/15/22 11/16/22 11/17/22 23:59 23:59 23:59 Intake Total 1060 / 1060 240 / 240 Output Total 2500 / 2500 350 / 350 Balance -1440 / -1440 -110 / -110 Lab / Micro Data 11/17/22 04:15 11/17/22 04:15 Labs: Laboratory Results - last 24 hr 11/16/22 11:15: Blood Type AB POSITIVE, Antibody Screen NEGATIVE, Crossmatch See Detail 11/16/22 11:27: POC Glucose 235 H 11/16/22 16:21: POC Glucose 217 H 11/16/22 23:22: POC Glucose 185 H 11/17/22 04:15: WBC 7.8, RBC 2.86 L, Hgb 8.1 L, Hct 26.9 L, MCV 94.1 H, MCH 28.3, MCHC 30.1 L, RDW Std Deviation 53.9 H, RDW Coeff of Rafael 15.8 H, Plt Count 240, MPV 10.9, Immature Gran % (Auto) 1.000 H, Neut % (Auto) 60.4, Lymph % (Auto) 19.4, [place] % (Auto) 12.0 H, Eos % (Auto) 6.6 H, Baso % (Auto) 0.6, Absolute Neuts (auto) 4.7, Absolute Lymphs (auto) 1.51, Nucleated RBC % 0.3, Sodium 139, Potassium 4.2, Chloride 104, Carbon Dioxide 33.0 H, Anion Gap 2 L, BUN 26 H, Creatinine 1.65 H, Estim Creat Clear Calc 42.47, Est GFR (MDRD) Af Amer 53 L, Est GFR (MDRD) Non-Af 44 L, BUN/Creatinine Ratio 15.8, Glucose 143 H, Calcium 8.2 L, Phosphorus 3.8, Magnesium 2.1 11/17/22 06:39: POC Glucose 127 H Radiography Diagnostic Testing: Radiology Impression Echocardiogram 11/15/22 20:14 Interpretation Summary The estimated ejection fraction is 40 %. There is moderate global hypokinesis of the left ventricle. There is evidence of diastolic dysfunction. Ordering Physician: Loki Lozoya Referring Physician: Donna Will M.D. Performed By: Nathan Correa RCS Physical Exam Narrative GENERAL: cooperative HEENT: Atraumatic; normocephalic EYES; Anicteric, Normal Conjunctiva NECK; supple, normal thyroid, RESPIRATORY: Diminished to auscultation CARDIOVASCULAR: Regular S1 S2, GI: soft, normoactive bowel sounds, : No Renal angle tenderness; EXTREMITIES: No edema, no clubbing, MUSCULOSKELETAL: no muscle wasting NEURO: Awake; no lateralizing signs. SKIN: No Rash PSYCH; Flat affect Assessment & Plan Assessment/Plan (1) Acute and chronic respiratory failure with hypoxia: PLAN: Plan Patient is a 71-year-old gentleman admitted with progressive shortness of breath and assessment of acute congestive heart failure made admitted to monitored bed for further management 1. Acute hypoxia ? Secondary to acute on chronic congestive heart failure with preserved ejection fraction. Echo from 04/23/2021 demonstrated EF of 65%. Patient admitted to monitored bed placed on strict input and output, daily weight, IV diuretics and repeat echo ordered ? 11/17/2022; Patient seen admitted some improvement in overall condition. 2D echo obtained as part of patient's evaluation demonstrated EF of 40% with moderate global hypokinesis of the left ventricle 2.? COPD exacerbation ? Mild exacerbation bronchodilator treatments in addition to above 3.? Anemia ? Secondary to chronic blood loss anemia. Patient has history of duodenal and colonic angiodysplastic bleeding lesion. With patient deemed to be symptomatic i.e. dyspnea and CHF an order was given for patient to be transfused with 1 unit PRBC 4.? Chronic hypoxic respiratory failure ? Secondary to suspected pulmonary fibrosis from prior COVID-19 infection.? Patient currently on supplemental oxygen 5.? 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 Previously treated with apixaban.? Patient did not tolerate apixaban as a result of GI bleed he underwent IVC filter placement on 05/02/2021 6.? Diabetes mellitus type II Managed with diet 7.? Rheumatoid arthritis Patient previously treated with rituximab as outpatient 8.? Non Hodgkin's lymphoma ?Apparently in remission 9.? Coronary artery disease ?With previous PCI of an LAD RCA and mid circumflex lesions 10.? Dyslipidemia -Patient is on statin therapy, continued at home dose 11.? Hypertension - Blood pressure controlled, home medications continued with dose adjustment as needed 12.? Depression ? Patient is on SSRI 13. BPH ? Patient is on tamsulosin discontinued 14. DVT prophylaxis ? Bilateral SCD, Lovenox discontinued given patient's significant anemia Time spent in the patient's overall evaluation,decision-making process, review of diagnostic data, adjustment of management, discussion with other providers, nursing nursing and ancillary staff involved in patient's care documentation, 35 Minutes Charges/Coding Visit Charges Inpatient E&M: 19759 Subs Hosp L2
[2022-11-17 09:03] VITALS: O2SAT 93
[2022-11-17 09:45] VITALS: BP 105/52; PULSE 71; RESP 16; TEMP 36.7; O2SAT 92
[2022-11-17] MEDS: Escitalopram Oxalate 10 MG Tablet PO (09:53)
[2022-11-17] MEDS: Aspirin E.C. 81 MG Tablet PO (09:53)
[2022-11-17] MEDS: Tamsulosin HCl 0.4 MG Capsule PO (09:53)
[2022-11-17] MEDS: Furosemide 40 MG/4 ML Vial IV (09:53)
[2022-11-17] MEDS: 0.9% Saline Lock 10 ML Syringe IV (09:53)
[2022-11-17 09:54] VITALS: BP 105/52; PULSE 71
[2022-11-17] MEDS: Pantoprazole Sodium 40 MG Tablet PO (09:54)
[2022-11-17] MEDS: Metoprolol Tartrate 25 MG Tablet 12.5 MG PO (09:54)
[2022-11-17] MEDS: Finasteride 5 MG Tablet PO (09:54)
[2022-11-17] MEDS: Insulin Lispro 100 UNIT/ML INSULN.PEN SC (11:12)
[2022-11-17 11:24] VITALS: O2SAT 94; O2SAT 95
--- NOTE | 2022-11-17 11:50 | DS.PCM_ITS ---
Providers Date of Admission: 11/15/22 Date of Discharge: 11/17/22 Primary Care Physician: Dr. Donna Will MD Reason For Visit: ACUTE ON CHRONIC HYPOXIC RESPIRATORY FAILURE Diagnosis Discharge Diagnosis (1) Acute and chronic respiratory failure with hypoxia: Status: Chronic Code(s): J96.21 - Acute and chronic respiratory failure with hypoxia Plan Patient is a 71-year-old gentleman admitted with progressive shortness of breath and assessment of acute congestive heart failure made admitted to monitored bed for further management 1. Acute hypoxia ? Secondary to acute on chronic congestive heart failure with reduced Patient admitted to monitored bed placed on strict input and output, daily weight, IV diuretics and repeat echo ordered ? 11/17/2022; Patient seen admitted some improvement in overall condition. 2D echo obtained as part of patient's evaluation demonstrated EF of 40% with mode rate global hypokinesis of the left ventricle 2. Acute on chronic congestive heart failure with reduced ejection fraction ? Patient managed with diuretics as well as supplemental oxygen. Low-dose l isinopril added to patient's treatment and 2.? COPD exacerbation ? Mild exacerbation bronchodilator treatments in addition to above 3.? Anemia ? Secondary to chronic blood loss anemia. Patient has history of duodenal and colonic angiodysplastic bleeding lesion. With patient deemed to be symptomatic i.e. dyspnea and CHF an order was given for patient to be transfused with 1 unit PRBC 4.? Chronic hypoxic respiratory failure ? Secondary to suspected pulmonary fibrosis from prior COVID-19 infection.? Patient currently on supplemental oxygen 5.? 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 Previously treated with apixaban.? Patient did not tolerate apixaban as a result of GI bleed he underwent IVC filter placement on 05/02/2021 6.? Diabetes mellitus type II Managed with diet 7.? Rheumatoid arthritis Patient previously treated with rituximab as outpatient 8.? Non Hodgkin's lymphoma ?Apparently in remission 9.? Coronary artery disease ?With previous PCI of an LAD RCA and mid circumflex lesions 10.? Dyslipidemia -Patient is on statin therapy, continued at home dose 11.? Hypertension - Blood pressure controlled, home medications continued with dose adjustment as needed 12.? Depression ? Patient is on SSRI 13. BPH ? Patient is on tamsulosin discontinued 14. DVT prophylaxis ? Bilateral SCD, Lovenox discontinued given patient's significant anemia Time spent in the patient's overall evaluation,decision-making process, review of diagnostic data, adjustment of management, discussion with other providers, nursing nursing and ancillary staff involved in patient's care documentation, 35 Minutes Medications at Discharge Home Medications nitroglycerin 0.4 mg sublingual tablet (Nitrostat) 0.4 mg sublingual Q5M PRN chest pain #30 tabs 09/25/20 atorvastatin 40 mg tablet 20 mg PO QHS cholesterol 10/09/21 metoprolol tartrate 25 mg tablet 12.5 mg PO DAILY BP 10/09/21 aspirin 81 mg tablet,delayed release 81 mg PO DAILY 12/31/21 ipratropium bromide 0.02 % solution for inhalation 2.5 ml inhalation Q6H PRN shortness of breath or wheezing #150 mL 06/25/22 finasteride 5 mg tablet 5 mg PO DAILY 08/14/22 tamsulosin 0.4 mg capsule 0.4 mg PO DAILY 08/14/22 ferrous sulfate 325 mg (65 mg iron) tablet 325 mg PO TID iron supplement 09/13/22 multivitamin 1 tab PO DAILY 09/13/22 pantoprazole 40 mg tablet,delayed release 40 mg PO BID #180 tabs 09/23/22 sucralfate 1 gram tablet 1 g PO BID #60 tabs 09/23/22 escitalopram oxalate 10 mg tablet 10 mg PO DAILY mood 90 days #90 tabs 10/14/22 albuterol sulfate 2.5 mg/3 mL (0.083 %) solution for nebulization 2.5 mg (3 mL) inhalation Q4H PRN Sob &/Or Wheezing #540 mL 10/21/22 mirtazapine 15 mg tablet (Remeron) 7.5 mg (1/2 x 15 mg) PO QHS sleep #90 tabs 11/04/22 budesonide 1 mg/2 mL suspension for nebulization 1 mg inhalation Q12H lungs 11/15/22 furosemide 40 mg tablet (Lasix) 40 mg PO DAILY #30 tabs 11/17/22 lisinopril 2.5 mg tablet 2.5 mg PO DAILY #30 tabs 11/17/22 Hospital Course Procedures 2-D Echocardiogram Summary of Care Provided Minutes Spent on Discharge: 35 Physical Exam Narrative GENERAL: cooperative HEENT: Atraumatic; normocephalic EYES; Anicteric, Normal Conjunctiva NECK; supple, normal thyroid, RESPIRATORY: Diminished to auscultation CARDIOVASCULAR: Regular S1 S2, GI: soft, normoactive bowel sounds, : No Renal angle tenderness; EXTREMITIES: No edema, no clubbing, MUSCULOSKELETAL: no muscle wasting NEURO: Awake; no lateralizing signs. SKIN: No Rash PSYCH; Flat affect Weight / BMI Weight Weight: 110.5 kg Body Mass Index (BMI) 34.0 ABG / Lab / Microbiology Data 11/17/22 04:15 11/17/22 04:15 Laboratory: Laboratory Results - last 24 hr 11/16/22 11:15: Blood Type AB POSITIVE, Antibody Screen NEGATIVE, Crossmatch See Detail 11/16/22 11:27: POC Glucose 235 H 11/16/22 16:21: POC Glucose 217 H 11/16/22 23:22: POC Glucose 185 H 11/17/22 04:15: WBC 7.8, RBC 2.86 L, Hgb 8.1 L, Hct 26.9 L, MCV 94.1 H, MCH 28.3, MCHC 30.1 L, RDW Std Deviation 53.9 H, RDW Coeff of Rafael 15.8 H, Plt Count 240, MPV 10.9, Immature Gran % (Auto) 1.000 H, Neut % (Auto) 60.4, Lymph % (Auto) 19.4, [place] % (Auto) 12.0 H, Eos % (Auto) 6.6 H, Baso % (Auto) 0.6, Absolute Neuts (auto) 4.7, Absolute Lymphs (auto) 1.51, Nucleated RBC % 0.3, Sodium 139, Potassium 4.2, Chloride 104, Carbon Dioxide 33.0 H, Anion Gap 2 L, BUN 26 H, Creatinine 1.65 H, Estim Creat Clear Calc 42.47, Est GFR (MDRD) Af Amer 53 L, Est GFR (MDRD) Non-Af 44 L, BUN/Creatinine Ratio 15.8, Glucose 143 H, Calcium 8.2 L, Phosphorus 3.8, Magnesium 2.1 11/17/22 06:39: POC Glucose 127 H Radiography Diagnostic Testing: Radiology Impression Echocardiogram 11/15/22 20:14 Interpretation Summary The estimated ejection fraction is 40 %. There is moderate global hypokinesis of the left ventricle. There is evidence of diastolic dysfunction. Ordering Physician: Loki Lozoya Referring Physician: Donna Will M.D. Performed By: Nathan Correa RCS D/C Instructions Discharge Diet: 1800 Calorie Control Diet, 8 Cup Fluid Restriction and 2000 mg Sodium Diet Discharge Activity: Return to Normal Activity Call your doctor if you observe: Fever of 101 or Higher, Shortness of breath, Fainting spells and Chest pain Meaningful Use Info Meaningful Use Diagnoses (Choose all that apply): CHF CHF MEDHAT/ARB ordered at discharge?: Yes Documented LVEF (%): 40 Discharge Plan Admission Admit Date/Time: 11/15/22 19:31 Attending Provider: Jordan Ortiz Primary Care Provider: Donna Will Consulting Providers: Loki Lozoya Discharge Orders/Prescriptions Prescriptions: New furosemide [Lasix] 40 mg tablet 40 mg PO DAILY Qty: 30 0RF lisinopril 2.5 mg tablet 2.5 mg PO DAILY Qty: 30 0RF Continued nitroglycerin [Nitrostat] 0.4 mg tablet, sublingual 0.4 mg SUBLINGUAL Q5M PRN (Reason: chest pain) Qty: 30 0RF Rx Instructions: until response; do not exceed 3 doses per episode metoprolol tartrate 25 mg tablet 12.5 mg PO DAILY multivitamin Tablet 1 tab PO DAILY tamsulosin 0.4 mg capsule 0.4 mg PO DAILY finasteride 5 mg tablet 5 mg PO DAILY ferrous sulfate 325 mg (65 mg iron) tablet 325 mg PO TID Patient Comments: two in the morning and one in the evening atorvastatin 40 mg tablet 20 mg PO QHS aspirin 81 mg Tablet,Delayed Release (Dr/Ec) 81 mg PO DAILY budesonide 1 mg/2 mL suspension for nebulization 1 mg inhalation Q12H ipratropium bromide 0.02 % solution 2.5 ml inhalation Q6H PRN (Reason: shortness of breath or wheezing) Qty: 150 6RF pantoprazole 40 mg tablet,delayed release (DR/EC) 40 mg PO BID Qty: 180 3RF sucralfate 1 gram tablet 1 g PO BID Qty: 60 1RF escitalopram oxalate 10 mg tablet 10 mg PO DAILY 90 Days Qty: 90 3RF albuterol sulfate 2.5 mg /3 mL (0.083 %) solution for nebulization 2.5 mg inhalation Q4H PRN (Reason: Sob &/Or Wheezing) Qty: 540 3RF mirtazapine [Remeron] 15 mg tablet 7.5 mg PO QHS Qty: 90 1RF Referrals / Follow Up: Donna Will MD [Primary Care Provider] - Within 1 Week Disposition Disposition (needs filled in before D/C Order can be placed): Home, Self Care Charges/Coding Visit Charges Inpatient E&M: 43269 Disch Hosp >30min
[2022-11-17 11:58] LABS: Bedside Glucose 217 mg/dL (74-106)
[2022-11-17 12:19] VITALS: BP 122/58; PULSE 68; RESP 16; TEMP 36.7; O2SAT 94
== END 2022-11-17 14:26 | disposition home or self-care (01) | DRG 682 ==
LOC: ED 19:09 → PCU 19:38
PROVIDERS: Admitting Provider Hospitalist; Emergency Provider Emergency Medicine; PCP Internal Medicine; Visit Provider Internal Medicine
DX: I12.9 Hypertensive chronic kidney disease with stage 1 through stage 4 chronic kidney disease, or unspecified chronic kidney disease (principal); J96.21 Acute and chronic respiratory failure with hypoxia; I50.43 Acute on chronic combined systolic (congestive) and diastolic (congestive) heart failure; J44.1 Chronic obstructive pulmonary disease with (acute) exacerbation; J96.11 Chronic respiratory failure with hypoxia; D63.1 Anemia in chronic kidney disease; E11.22 Type 2 diabetes mellitus with diabetic chronic kidney disease; D50.0 Iron deficiency anemia secondary to blood loss (chronic); N18.30 Chronic kidney disease, stage 3 unspecified; J84.10 Pulmonary fibrosis, unspecified; M06.9 Rheumatoid arthritis, unspecified; I35.0 Nonrheumatic aortic (valve) stenosis; F32.A Depression, unspecified; E78.00 Pure hypercholesterolemia, unspecified; I25.10 Atherosclerotic heart disease of native coronary artery without angina pectoris; F41.9 Anxiety disorder, unspecified; Z79.82 Long term (current) use of aspirin; Z79.51 Long term (current) use of inhaled steroids; Z95.5 Presence of coronary angioplasty implant and graft; Z85.72 Personal history of non-Hodgkin lymphomas; Z87.891 Personal history of nicotine dependence; Z99.81 Dependence on supplemental oxygen; Z79.899 Other long term (current) drug therapy; N40.0 Benign prostatic hyperplasia without lower urinary tract symptoms; U09.9 Post COVID-19 condition, unspecified
CPT/HCPCS: 36415; 71046; 80048; 82728; 82962; 83036; 83540; 83550; 83735; 83880; 84100; 84484; 85025; 85027; 86850; 86900; 86901; 86920; 86922; 93005; 93306; 94640; 94668; 97161; 97165; 99285; 99406; P9016; Q9957; A4216; C8929; J1940

== ENCOUNTER → 2023-01-25 | Outpatient (CLI) | payer MEDICARE, SELFPAY ==
--- NOTE | 2023-01-25 09:56 | CT_ITS ---
EXAM: CT CHEST, LUNG CANCER SCREENING WITHOUT INTRAVENOUS CONTRAST CLINICAL INDICATION: smoking and gt; 40 pack years quit 02/2021 TECHNIQUE: Helically acquired images were obtained of the chest without intravenous contrast using low dose (LDCT) lung cancer screening protocol. This CT exam was performed using one or more of the following dose reduction techniques: automated exposure control, adjustment of the mA and/or kV according to patient size, and/or use of iterative reconstruction technique. COMPARISON: CTA chest 02/14/2022 FINDINGS: LUNGS AND PLEURAL SPACES: Segmental atelectatic changes of both lower lobes of lungs noted. No evidence of a lung mass. Small right pleural effusion. No pneumothorax. HEART: Heart is normal size. Coronary artery stents are noted. No pericardial effusion. MEDIASTINUM: Normal. No mediastinal or hilar adenopathy. Esophagus is unremarkable. No hiatal hernia. THYROID: Normal. No thyroid nodules or calcification. BONES/JOINTS: Sternotomy wires are present. VASCULATURE: See above. LYMPH NODES: Normal. No enlarged lymph nodes. CT/Low Dose CT Lung Screening IMPRESSION: 1. Prominent bibasilar atelectasis. 2. No evidence of a lung mass or suspicious pulmonary nodule. Lung-RADS score: 0S - Incomplete. Additional clinically significant or potentially clinically significant findings are described. Additional lung cancer screening CT images are needed. Follow-up study recommended following clearing of the lower lobe atelectasis. Electronically Signed: Antonio Field MD at 16:23 [facility] ,
== END | disposition home or self-care (01) ==
LOC: CT 09:53
PROVIDERS: PCP Internal Medicine; Visit Provider Nurse Practitioner Acute Care
DX: F17.211 Nicotine dependence, cigarettes, in remission (principal)
CPT/HCPCS: 71271

== ENCOUNTER 2023-02-28 11:07 | Inpatient (IN) | payer MEDICARE, SELFPAY ==
[2023-02-28] VITALS (58 sets, daily range): BP systolic 89–146; BP diastolic 52–113; PULSE 79–102; RESP 17–31; TEMP 35.9–36.6; O2SAT 80–99; BMI 33.3
--- NOTE | 2023-02-28 11:52 | ED.VIS.DYS ---
HPI History of Present Illness Chief Complaint: Shortness of Breath Detail of Chief Complaint: Cough with yellow sputum. Informant: patient Onset/Context/Timing Context: gradual Timing: Continuous Current Severity: Mild Maximum Severity: Mild Worsened by: Coughing Relieved by: Rest and Oxygen Associated Symptoms cough and yellow sputum Chest Pain: Positive for None Narrative Narrative: 72-year-old male history of COPD on 4 L of oxygen. Prior DVT. Diabetes and anemia with chronic kidney disease. States he had a cough of yellowish sputum shortness of breath today. No fever. No hemoptysis. No left-sided chest pain. No vomiting. PE Risk Factors: Negative for Cancer, OCP + Smoking + > 35, Prior DVT or PE, Recent immobilization, Recent surgery or Recent travel Prior similar symptoms: Yes Recent Illness/Hospitalization: No PFSH PFSH Medical History Acute respiratory failure with hypoxia Allergic rhinitis Arthritis Asthma Atherosclerosis of coronary artery of [place] heart without angina pectoris Bleeding tendency Cancer Chronic bronchitis Colon polyp COPD (chronic obstructive pulmonary disease) COVID-19 in immunocompromised patient Diabetes DVT (deep venous thrombosis) (05/01/21) Essential hypertension Former smoker FTT (failure to thrive) in adult Gastritis High cholesterol History of basal cell carcinoma History of pilonidal cyst History of pulmonary embolus (PE) (04/30/21) History of stress test HTN (hypertension) Hyperglycemia Nicotine dependence, cigarettes, uncomplicated Non-Hodgkin lymphoma Obesity On home oxygen therapy Physical debility Pneumonia Positive colorectal cancer screening using Cologuard test RA (rheumatoid arthritis) Rhinovirus Tobacco abuse Type 2 diabetes mellitus Ulcer 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 complications Home Medications nitroglycerin 0.4 mg sublingual tablet (Nitrostat) 0.4 mg sublingual Q5M PRN chest pain #30 tabs 09/25/20 [Rx Last Taken Unknown] atorvastatin 40 mg tablet 20 mg PO QHS cholesterol 10/09/21 [History Last Taken 02/27/23] aspirin 81 mg tablet,delayed release 81 mg PO DAILY 12/31/21 [History Last Taken 02/27/23] finasteride 5 mg tablet 5 mg PO DAILY 08/14/22 [History Last Taken 02/27/23] tamsulosin 0.4 mg capsule 0.4 mg PO DAILY 08/14/22 [History Last Taken 02/27/23] ferrous sulfate 325 mg (65 mg iron) tablet 325 mg PO DAILY iron supplement 09/13/22 [History Last Taken 02/27/23] multivitamin 1 tab PO DAILY 09/13/22 [History Last Taken 02/27/23] pantoprazole 40 mg tablet,delayed release 40 mg PO BID #180 tabs 09/23/22 [Rx Last Taken 02/27/23] escitalopram oxalate 10 mg tablet 10 mg PO DAILY mood 90 days #90 tabs 10/14/22 [Rx Last Taken 02/27/23] mirtazapine 15 mg tablet (Remeron) 7.5 mg (1/2 x 15 mg) PO QHS sleep #90 tabs 11/04/22 [Rx Last Taken 02/27/23] budesonide 1 mg/2 mL suspension for nebulization 1 mg inhalation Q12H lungs 11/15/22 [History Last Taken 02/27/23] albuterol sulfate 2.5 mg/3 mL (0.083 %) solution for nebulization 2.5 mg (3 mL) inhalation Q4H PRN Sob &/Or Wheezing #540 mL 01/13/23 [Rx Last Taken 02/27/23] ipratropium bromide 0.02 % solution for inhalation 2.5 ml inhalation Q6H PRN shortness of breath or wheezing #150 mL 01/13/23 [Rx Last Taken 02/27/23] lisinopril 2.5 mg tablet 2.5 mg PO DAILY #90 tabs 01/15/23 [Rx Last Taken 02/27/23] Allergy/AdvReac Type Severity Reaction Status Date / Time levofloxacin [From Levaquin] AdvReac Intermediate diarrhea, Verified 02/28/23 11:17 dizziness, GI upset, weakness Family History Father Arthritis Bleeding disorder Hypertension Kidney disease Cancer Skin Anemia blood clots Emphysema lung Mother Colon cancer Cancer Lung Cancer Diabetes Brother Thyroid disorder Surgical History H/O cardiac catheterization History of coronary artery stent placement (10/22/13) History of embolic filter insertion History of excision of pilonidal cyst History of heart artery stent History of thymectomy Hx of lymph node excision Presence of IVC filter (04/2021) Status post cardiac surgery Social History household members: spouse Smoking Status: Former smoker Tobacco: How many years used: 55 second hand exposure: Yes alcohol intake: current alcohol intake frequency: holidays/special occasions only substance use type: does not use caffeine: Yes Type: coffee Number of servings: 3 what type of physical activity do you participate in: none frequency: does not exercise seatbelt use: always ROS ROS ED ROS Narrative Cough. Shortness of breath. Yellow sputum. Review of Systems ROS Unobtainable: Denies due to encephalopathy Constitutional Constitutional ED: Denies chills or fever(s) Eyes Eyes: Denies blurry vision ENT ENT ED: Denies ear pain Cardiovascular Cardiovascular: Denies palpitations or racing heartbeat Respiratory/Chest Respiratory/Chest: Reports cough and dyspnea Gastrointestinal Gastrointestinal: Denies abdominal pain, constipation, diarrhea, melena, nausea or vomiting Genitourinary Genitourinary ED: Denies dysuria or hematuria Musculoskeletal Musculoskeletal: Denies arthralgias or back pain Integumentary Denies abscess or Abrasions Neurologic Neurologic: Denies headache(s) Psychiatric Psychiatric: Denies anxiety Endocrine Endocrinology: Denies cold intolerance Hematologic/Lymphatic Hematologic/Lymphatic: Denies easy bleeding, easy bruising or lymphadenopathy Allergic/Immunologic Allergic/Immunologic ED: Denies mouth swelling, tongue swelling or urticaria EXAM Physical Exam Narrative Exam Narrative: 69-year-old male vital signs stable except his pulse ox is 83% on his normal 4 L. 98% on 6 L. He is hypoxic. HEENT exam unremarkable. Moist mucous membranes. Neck nontender no JVD. No lymphadenopathy. Lungs few scattered wheezes. No rales or rhonchi. Prolonged expiratory phase. Equal symmetrical. Heart regular rhythm rate about 85 no murmur. Chest wall nontender. Prior well-healed sternotomy. Ribs nontender. No crepitance. Abdomen soft nontender. Moving all 4 extremities. 1+ pitting edema both lower extremities which he states is chronic. Neurologically is awake and alert with no focal motor deficits. Const Vital Signs: 02/28/23 11:08 02/28/23 11:14 02/28/23 11:15 Temperature 97.2 F L 97.2 F L Temperature Source Temporal Temporal Pulse Rate 88 87 Respiratory Rate 22 H 27 H Respiratory Effort Respiratory Depth Respiratory Pattern Blood Pressure 114/73 114/73 Blood Pressure Mean 86 86 Pulse Ox 83 98 97 Oxygen Delivery Method Nasal Cannula Nasal Cannula Nasal Cannula Oxygen Flow Rate (L/min) 4 6 6 02/28/23 11:15 02/28/23 12:04 02/28/23 12:04 Temperature Temperature Source Pulse Rate 81 Respiratory Rate 19 H Respiratory Effort Normal Non-Labored Respiratory Depth Normal Respiratory Pattern Normal Normal Blood Pressure Blood Pressure Mean Pulse Ox 97 Oxygen Delivery Method Nasal Cannula Nasal Cannula Oxygen Flow Rate (L/min) 6 6 02/28/23 12:14 02/28/23 13:00 02/28/23 14:00 Temperature 97.4 F L 97.5 F L 97.4 F L Temperature Source Temporal Temporal Temporal Pulse Rate 90 84 81 Respiratory Rate 23 H 21 H 17 Respiratory Effort Respiratory Depth Respiratory Pattern Blood Pressure 131/91 H 146/68 H 138/74 H Blood Pressure Mean 104 94 95 Pulse Ox 94 99 97 Oxygen Delivery Method Nasal Cannula Nasal Cannula Nasal Cannula Oxygen Flow Rate (L/min) 6 6 6 02/28/23 15:00 02/28/23 11:21 02/28/23 11:30 Temperature 97.4 F L Temperature Source Temporal Pulse Rate 79 84 83 Respiratory Rate 18 20 H 22 H Respiratory Effort Respiratory Depth Respiratory Pattern Blood Pressure 131/70 H 121/52 H Blood Pressure Mean 90 62 Pulse Ox 95 94 96 Oxygen Delivery Method Nasal Cannula Oxygen Flow Rate (L/min) 5 02/28/23 11:40 02/28/23 11:45 02/28/23 11:50 Temperature Temperature Source Pulse Rate 83 83 87 Respiratory Rate 19 H 24 H 26 H Respiratory Effort Respiratory Depth Respiratory Pattern Blood Pressure 124/64 H Blood Pressure Mean 82 Pulse Ox 97 97 96 Oxygen Delivery Method Oxygen Flow Rate (L/min) 02/28/23 12:00 02/28/23 12:10 02/28/23 12:15 Temperature Temperature Source Pulse Rate 82 87 84 Respiratory Rate 21 H 21 H 21 H Respiratory Effort Respiratory Depth Respiratory Pattern Blood Pressure 128/62 H 131/113 H Blood Pressure Mean 83 121 Pulse Ox 97 97 Oxygen Delivery Method Oxygen Flow Rate (L/min) 02/28/23 12:20 02/28/23 12:30 02/28/23 12:40 Temperature Temperature Source Pulse Rate 95 93 87 Respiratory Rate 28 H 20 H 19 H Respiratory Effort Respiratory Depth Respiratory Pattern Blood Pressure 130/72 H Blood Pressure Mean 90 Pulse Ox 95 96 96 Oxygen Delivery Method Oxygen Flow Rate (L/min) 02/28/23 12:45 02/28/23 12:50 02/28/23 13:00 Temperature Temperature Source Pulse Rate 88 87 84 Respiratory Rate 22 H 28 H 18 Respiratory Effort Respiratory Depth Respiratory Pattern Blood Pressure 89/79 L Blood Pressure Mean 83 Pulse Ox 95 97 Oxygen Delivery Method Oxygen Flow Rate (L/min) 02/28/23 13:01 02/28/23 13:10 02/28/23 13:15 Temperature Temperature Source Pulse Rate 83 83 82 Respiratory Rate 18 21 H 20 H Respiratory Effort Respiratory Depth Respiratory Pattern Blood Pressure 136/69 H 140/68 H Blood Pressure Mean 90 89 Pulse Ox 97 99 97 Oxygen Delivery Method Oxygen Flow Rate (L/min) 02/28/23 13:20 02/28/23 13:30 02/28/23 13:40 Temperature Temperature Source Pulse Rate 86 82 82 Respiratory Rate 29 H 18 27 H Respiratory Effort Respiratory Depth Respiratory Pattern Blood Pressure 137/70 H Blood Pressure Mean 91 Pulse Ox 98 99 98 Oxygen Delivery Method Oxygen Flow Rate (L/min) 02/28/23 13:45 02/28/23 13:50 02/28/23 14:00 Temperature Temperature Source Pulse Rate 83 82 Respiratory Rate 25 H 21 H Respiratory Effort Respiratory Depth Respiratory Pattern Blood Pressure 123/86 H 138/64 H Blood Pressure Mean 99 85 Pulse Ox 98 Oxygen Delivery Method Oxygen Flow Rate (L/min) 02/28/23 14:10 02/28/23 14:15 02/28/23 14:20 Temperature Temperature Source Pulse Rate 83 84 81 Respiratory Rate 18 21 H 18 Respiratory Effort Respiratory Depth Respiratory Pattern Blood Pressure 131/67 H Blood Pressure Mean 87 Pulse Ox Oxygen Delivery Method Oxygen Flow Rate (L/min) 02/28/23 14:30 02/28/23 14:40 02/28/23 14:45 Temperature Temperature Source Pulse Rate 83 79 82 Respiratory Rate 22 H 18 26 H Respiratory Effort Respiratory Depth Respiratory Pattern Blood Pressure 141/71 H 125/72 H Blood Pressure Mean 92 88 Pulse Ox 97 96 96 Oxygen Delivery Method Oxygen Flow Rate (L/min) 02/28/23 14:50 02/28/23 15:00 02/28/23 15:10 Temperature Temperature Source Pulse Rate 81 81 Respiratory Rate 21 H 27 H Respiratory Effort Respiratory Depth Respiratory Pattern Blood Pressure 131/70 H Blood Pressure Mean 90 Pulse Ox 95 94 Oxygen Delivery Method Oxygen Flow Rate (L/min) 02/28/23 15:15 02/28/23 15:20 02/28/23 15:30 Temperature Temperature Source Pulse Rate 80 83 82 Respiratory Rate 22 H 21 H 23 H Respiratory Effort Respiratory Depth Respiratory Pattern Blood Pressure 140/73 H 137/69 H Blood Pressure Mean 91 90 Pulse Ox 95 94 97 Oxygen Delivery Method Nasal Cannula Oxygen Flow Rate (L/min) 4 Positive well nourished and well developed; Negative for cachectic, contractures or unkempt General Appearance ED: well developed and NAD; Negative for unkempt, cachectic, contractures or pallor Nutritional Appearance: Negative for cachectic HEENT Reports moist mucous membranes; Denies dry mucous membranes atraumatic; Negative for trauma or tenderness Mouth ED: No dry mucous membranes Mouth: No dry mucous membranes Eyes PERRL and EOMs intact bilaterally General Eye ED: Negative for pale conjunctiva or scleral icterus Neck no lymphadenopathy, supple, no meningeal signs and no JVD General: Negative for tenderness Lymph Lymphatic: Negative for other Resp normal respiratory effort and No clear to auscultation bilaterally Resp Narrative: Prolonged expiratory phase. Auscultation: wheezes Cardio regular rate, regular rhythm, S1 normal heart sound, S2 normal heart sound and no murmurs Rate: Negative for bradycardia or tachycardic GI non-tender, non-distended and no masses Auscultation: normoactive bowel sounds Palpation: soft; Negative for tender or guarding Back/Spine no CVA tenderness and normal to inspection General Back: Negative for CVA tenderness or tenderness Extremity Negative for normal to inspection Extremity Narrative: Bilateral lower extremity edema. 1+ pitting. No cords. No calf tenderness. General Extremety ED: Yes edema; Negative for tenderness General Extremity: edema Neuro oriented x3 and CN's II-XII intact bilaterally Sensorium / Orientation: alert, oriented to person, oriented to place and oriented to time; Negative for orientation impaired, confused, lethargic or stuporous Motor Exam: strength 5/5 throughout Psych mental status grossly normal Appearance: Negative for unkempt Attitude: No agitated and No other Mood & Affect: Negative for depressed, anxious or tearful Thought Process: normal thought process Skin no wounds General Skin Exam: Negative for jaundice or pallor Lesions: no lesions Rashes: no rashes Trauma: Negative for abrasion or laceration MDM MDM MDM Narrative Medical decision making narrative: 72-year-old male extensive past medical history including COPD, CAD and diabetes with anemia and kidney disease. Complains shortness of breath with yellow sputum. Cardiac respiratory workup with COVID and flu testing. Repeat exam patient resting comfortably at 3:50 PM. He has needed blood transfusions before for internal bleeding. He is on no blood thinners besides aspirin. He has not noticed any melanotic stool. I will type and cross him for 2 units and transfuse him 1 unit after speaking with the hospitalist about admission. History & Record Review Discussion w/independent historian: Patient Additional record(s) reviewed:: Prior inpatient record, Prior outpatient record, Prior ED visit and Prior labs Lab Data Attestation: I reviewed the patient's lab results. Lab results narrative: CBC shows a white count of 7.8. H&H is 6.7 and 23.5 Platelets 278. Chemistries show a potassium of 5.6. Gap of 3.BUN 35 creatinine 1.75. Glucose 181. Troponin is 18. Chest x-ray shows a chronic right pleural effusion. Labs: Laboratory Results - last 24 hr 02/28/23 12:15 WBC 7.8 RBC 2.33 L Hgb 6.7 L Hct 23.5 L MCV 100.9 H MCH 28.8 MCHC 28.5 L RDW Std Deviation 74.5 H RDW Coeff of [place] 19.9 H Plt Count 278 MPV 10.7 Immature Gran % (Auto) 0.900 Neut % (Auto) 74.3 H Lymph % (Auto) 11.7 L [place] % (Auto) 8.6 Eos % (Auto) 3.9 Baso % (Auto) 0.6 Absolute Neuts (auto) 5.8 Absolute Lymphs (auto) 0.91 Nucleated RBC % 0.3 Hypochromasia 1+ Anisocytosis 2+ Sodium 141 Potassium 5.6 H Chloride 112 H Carbon Dioxide 26.0 Anion Gap 3 L BUN 35 H Creatinine 1.75 H Est GFR (MDRD) Af Amer 49 L Est GFR (MDRD) Non-Af 41 L BUN/Creatinine Ratio 20.0 Glucose 181 H Calcium 8.5 Troponin I High Sens 18 Radiography Chest X-Ray - ED: 1 View, Read by ED Physician, Heart, Mediastinum, Bony Structures, Chronic Changes and Right Effusion Diagnostic Testing: Clinical Impression(s) from Imaging Studies Chest X-Ray 02/28/23 12:20 IMPRESSION: No interval change Electronically Signed: J Carlos Soares MD at 12:46 EST Reading Location ID and State: [address] [place] [address] , Service support , Chest x-ray, portable, single view shows a chronic right pleural effusion. Prior sternotomy. No acute process. Rhythm Strip Rhythm Strip: Sinus Rhythm Rate: 82 Ectopy: None EKG Initial EKG: Attestation: I personally reviewed and interpreted this EKG as follows: Interpretation: Sinus Rhythm and No Acute Injury Pattern Comments: Sinus rhythm rate 82 no acute signs of CO or ischemia. No acute change from prior EKG from October. Prior EKG tracings: available for review Prior: Unchanged Discharge Plan Dx/Rx/DC Orders Clinical Impression: History of COPD, History of chronic kidney disease, Acute dyspnea, Anemia, Pleural effusion on right, Acute hyperkalemia Disposition Disposition: Acute Care Hospital [facility]
[2023-02-28] MEDS: Ipratropium/Albuterol Sulfate 3 ML AMPUL.NEB INHALATION ×4 (12:03→23:10)
[2023-02-28] MEDS: Albuterol 2.5 MG/3 ML VIAL.NEB. INHALATION (12:03)
[2023-02-28] MEDS: predniSONE 20 MG Tablet 60 MG PO (12:14)
--- NOTE | 2023-02-28 12:20 | RAD_ITS ---
STUDY: X-RAY CHEST REASON FOR EXAM: Male, 72 years old. Fever and cough TECHNIQUE: Single AP portable view of the chest. COMPARISON: 11/15/2022 FINDINGS: EKG leads overlie the chest Lungs are expanded with persistent diffuse airspace opacifications in both lower lung luu, more pronounced in the right lung base and the left. Stable blunting of both costophrenic angles, no interval change is noted. Sternal cerclage wires and vascular clips are present from a prior sternotomy and coronary artery bypass graft procedure (CABG). Normal mediastinum and sho. Normal visualized pulmonary arteries. There is atherosclerotic calcification of the aortic arch with tortuosity. There are diffuse degenerative changes of the visualized thoracic spine. Normal visualized ribs, clavicles, and shoulders. There is no demonstrated abnormality of the visualized soft tissue structures of the upper abdomen. RAD/Chest 1 View (Portable) IMPRESSION: No interval change Electronically Signed: J Carlos Soares MD at 12:46 EST ,
[2023-02-28 12:36] LABS: Absolute Lymphocyte Count 0.91 X10^3/uL (0.83-4.51); Absolute Neutrophil Count 5.8 X10^3/uL (2.0-7.7); Basophil# 0.05 X10^3/uL; Basophil% 0.6 % (0-1); Eosinophils% 3.9 % (0-5); Hematocrit 23.5 % (40-54); Hemoglobin 6.7 g/dL (13.0-16.5); Lymphocyte # 0.91 X10^3/ul (0.83-4.51); Lymphocyte % 11.7 % (19-41); Mean Corp Hgb Conc 28.5 g/dL (32-36); Mean Corpuscular Hgb 28.8 pg (27.0-32.0); Mean Corpuscular Volume 100.9 fL (80-94); Mean Platelet Vol. 10.7 fl (6.2-12.0); Monocyte# 0.67 X10^3/uL; Monocyte% 8.6 % (0-10); NRBC Flagged by Analyzer 0.3 % (0-5); Neutrophil # 5.75 X10^3/uL (2.7-7.7); Neutrophil % 74.3 % (47-70); POSITIVE MORPHOLOGY YES; Platelet Count 278 K/mm3 (150-450); RBC Distribution Width CV 19.9 % (11.6-14.6); RBC Distribution Width SD 74.5 fl (35.1-43.9); Red Blood Count 2.33 M/mm3 (4.6-6.2); White Blood Count 7.8 K/mm3 (4.4-11.0)
[2023-02-28 12:46] LABS: Differential Indicated SCAN CRITERIA MET
[2023-02-28 12:58] LABS: Anisocytosis 2+; Hypochromasia 1+
[2023-02-28 13:01] LABS: Troponin-I HS 18 pg/mL (3.0-78.0)
[2023-02-28 13:03] LABS: Anion Gap 3 (5-15); BUN 35 mg/dL (7-18); Calcium,Total 8.5 mg/dL (8.5-10.1); Chloride 112 mmol/L (98-107); Creatinine, Serum 1.75 mg/dL (0.70-1.30); EST Glomerular Filtration Rate 41 mL/min (>60); Est Glom Filt Rate - Afr Amer 49 mL/min (>60); Glucose 181 mg/dL (74-106); Potassium 5.6 mmol/L (3.5-5.1); Sodium Level 141 mmol/L (136-145)
--- OUTSIDE RECORDS SUMMARY | 2023-02-28 16:41 | XMS RPT_ITS | CCD ---
Author Name Unknown Address [address] [place] [address] Organization [facility] Results Test Name Value Interpretation Reference Range Facil ity Summary Purpose Family History No Family History Records Found Advance Directives No Advanced Directives Records Found Additional Source Comments (unrecognized sect ion and content) No Status Records Found INFORMATION SOURCE (unrecogn ized section and content) FOR RECORDS PERTAINING TO PATIENTS WHO ARE OR HAVE BEEN ENROLLED IN A CHEMICAL DEPENDENCY/SUBSTANCEABUSE PROGRAM, SOME INFORMATION MAY BE OMITTED. This clinical summary was aggregated from multiple sources. Caution should be exercised in using it in the provision of clinical care. This summary normalizes information from multiple sources, and as a consequence, information in this document may materially change the coding, format and clinical context of patient data. In addition, data may be omitted in some cases. CLINICAL DECISIONS SHOULD BE BASED ON THE PRIMARY CLINICAL RECORDS. [employer] provides no warranty or guarantee of the accuracy or completeness of information in this document.
--- NOTE | 2023-02-28 16:42 | PCM.HP.STD ---
HPI - General General Date of Admission: 02/28/23 Date of Service: 02/28/23 Chief Complaint: Gen weakness, SOB HPI Narrative SAL ALONZO, is a 72-year-old male history of COPD on 4 L home O2, diabetes, VTE, rheumatoid arthritis, depression, BPH who presented to [facility] 02/28/2023 with increased cough with yellowish sputum and shortness of breath today, no fever hemoptysis, no chest pain. Found to be 83% on 4 L nasal cannula in ED and tachypneic. Chest x-ray with no acute changes. Patient with hemoglobin of 6.7, potassium 5.6 but creatinine at baseline. Patient COVID, flu, RSV negative. Treated as COPD exacerbation but also given his hemoglobin of 6.7 hospitalist contacted for admission for COPD exacerbation and anemia, no acute blood loss noted in ED however patient below transfusion threshold. Patient evaluated bedside and reports that he has been short of breath for 3 weeks and is continued to worsen, does cough things up but has chronic cough so he is unsure how much worse than his baseline. Has been progressively weak as well and today was so weak he had problems with his ADLs, had a little bit of right-sided achy chest pain that resolved after couple of minutes and also an episode where he felt hot earlier and also has some swelling in his legs, reports right leg is always swollen and right now left leg is slightly swollen as well. [facility] Medical History Acute respiratory failure with hypoxia Allergic rhinitis Arthritis Asthma Atherosclerosis of coronary artery of [place] without angina pectoris Bleeding tendency Cancer Chronic bronchitis Colon polyp COPD (chronic obstructive pulmonary disease) COVID-19 in immunocompromised patient Diabetes DVT (deep venous thrombosis) (05/01/21) Essential hypertension Former smoker FTT (failure to thrive) in adult Gastritis High cholesterol History of basal cell carcinoma History of pilonidal cyst History of pulmonary embolus (PE) (04/30/21) History of stress test HTN (hypertension) Hyperglycemia Nicotine dependence, cigarettes, uncomplicated Non-Hodgkin lymphoma Obesity On home oxygen therapy Physical debility Pneumonia Positive colorectal cancer screening using Cologuard test RA (rheumatoid arthritis) Rhinovirus Tobacco abuse Type 2 diabetes mellitus Ulcer 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 complications Home Medications nitroglycerin 0.4 mg sublingual tablet (Nitrostat) 0.4 mg sublingual Q5M PRN chest pain #30 tabs 09/25/20 [Rx Last Taken Unknown] atorvastatin 40 mg tablet 20 mg PO QHS cholesterol 10/09/21 [History Last Taken 02/27/23] aspirin 81 mg tablet,delayed release 81 mg PO DAILY 12/31/21 [History Last Taken 02/27/23] finasteride 5 mg tablet 5 mg PO DAILY 08/14/22 [History Last Taken 02/27/23] tamsulosin 0.4 mg capsule 0.4 mg PO DAILY 08/14/22 [History Last Taken 02/27/23] ferrous sulfate 325 mg (65 mg iron) tablet 325 mg PO DAILY iron supplement 09/13/22 [History Last Taken 02/27/23] multivitamin 1 tab PO DAILY 09/13/22 [History Last Taken 02/27/23] pantoprazole 40 mg tablet,delayed release 40 mg PO BID #180 tabs 09/23/22 [Rx Last Taken 02/27/23] escitalopram oxalate 10 mg tablet 10 mg PO DAILY mood 90 days #90 tabs 10/14/22 [Rx Last Taken 02/27/23] mirtazapine 15 mg tablet (Remeron) 7.5 mg (1/2 x 15 mg) PO QHS sleep #90 tabs 11/04/22 [Rx Last Taken 02/27/23] budesonide 1 mg/2 mL suspension for nebulization 1 mg inhalation Q12H lungs 11/15/22 [History Last Taken 02/27/23] albuterol sulfate 2.5 mg/3 mL (0.083 %) solution for nebulization 2.5 mg (3 mL) inhalation Q4H PRN Sob &/Or Wheezing #540 mL 01/13/23 [Rx Last Taken 02/27/23] ipratropium bromide 0.02 % solution for inhalation 2.5 ml inhalation Q6H PRN shortness of breath or wheezing #150 mL 01/13/23 [Rx Last Taken 02/27/23] lisinopril 2.5 mg tablet 2.5 mg PO DAILY #90 tabs 01/15/23 [Rx Last Taken 02/27/23] Allergy/AdvReac Type Severity Reaction Status Date / Time [facility] AdvReac Intermediate diarrhea, Verified 02/28/23 11:17 dizziness, GI upset, weakness Family History Father Arthritis Bleeding disorder Hypertension Kidney disease Cancer Skin Anemia blood clots Emphysema lung Mother Colon cancer Cancer Lung Cancer Diabetes Brother Thyroid disorder Surgical History H/O cardiac catheterization History of coronary artery stent placement (10/22/13) History of embolic filter insertion History of excision of pilonidal cyst History of heart artery stent History of thymectomy Hx of lymph node excision Presence of IVC filter (04/2021) Status post cardiac surgery Social History household members: spouse Smoking Status: Former smoker Tobacco: How many years used: 55 second hand exposure: Yes alcohol intake: current alcohol intake frequency: holidays/special occasions only substance use type: does not use caffeine: Yes Type: coffee Number of servings: 3 what type of physical activity do you participate in: none frequency: does not exercise seatbelt use: always ROS ROS Narrative General: Had episode of feeling hot earlier HENT: Denies headache, denies stuffy nose, denies sore throat EYES: Denies changes in vision Resp: Has cough and increased shortness of breath Cardiac: Had dull right-sided ache earlier that is since resolved GI: Denies abdominal pain, denies changes in bowel, denies nausea/vomiting : Denies changes in urination Extremity: Has some lower extremity swelling MSK: Generalized weakness Neuro: Denies any numbness/tingling Heme: Denies any bleeding or bruising Skin: Denies rashes Psychiatric: No complaints voiced Vital Signs Vital Signs Vital Signs: 02/28/23 11:08 02/28/23 11:14 02/28/23 11:15 Temperature 97.2 F L 97.2 F L Temperature Source Temporal Temporal Pulse Rate 88 87 Respiratory Rate 22 H 27 H Respiratory Effort Respiratory Depth Respiratory Pattern Blood Pressure 114/73 114/73 Blood Pressure Mean 86 86 Pulse Ox 83 98 97 Oxygen Delivery Method Nasal Cannula Nasal Cannula Nasal Cannula Oxygen Flow Rate (L/min) 4 6 6 02/28/23 11:15 02/28/23 12:04 02/28/23 12:04 Temperature Temperature Source Pulse Rate 81 Respiratory Rate 19 H Respiratory Effort Normal Non-Labored Respiratory Depth Normal Respiratory Pattern Normal Normal Blood Pressure Blood Pressure Mean Pulse Ox 97 Oxygen Delivery Method Nasal Cannula Nasal Cannula Oxygen Flow Rate (L/min) 6 6 02/28/23 12:14 02/28/23 13:00 02/28/23 14:00 Temperature 97.4 F L 97.5 F L 97.4 F L Temperature Source Temporal Temporal Temporal Pulse Rate 90 84 81 Respiratory Rate 23 H 21 H 17 Respiratory Effort Respiratory Depth Respiratory Pattern Blood Pressure 131/91 H 146/68 H 138/74 H Blood Pressure Mean 104 94 95 Pulse Ox 94 99 97 Oxygen Delivery Method Nasal Cannula Nasal Cannula Nasal Cannula Oxygen Flow Rate (L/min) 6 6 6 02/28/23 15:00 02/28/23 11:21 02/28/23 11:30 Temperature 97.4 F L Temperature Source Temporal Pulse Rate 79 84 83 Respiratory Rate 18 20 H 22 H Respiratory Effort Respiratory Depth Respiratory Pattern Blood Pressure 131/70 H 121/52 H Blood Pressure Mean 90 62 Pulse Ox 95 94 96 Oxygen Delivery Method Nasal Cannula Oxygen Flow Rate (L/min) 5 02/28/23 11:40 02/28/23 11:45 02/28/23 11:50 Temperature Temperature Source Pulse Rate 83 83 87 Respiratory Rate 19 H 24 H 26 H Respiratory Effort Respiratory Depth Respiratory Pattern Blood Pressure 124/64 H Blood Pressure Mean 82 Pulse Ox 97 97 96 Oxygen Delivery Method Oxygen Flow Rate (L/min) 02/28/23 12:00 02/28/23 12:10 02/28/23 12:15 Temperature Temperature Source Pulse Rate 82 87 84 Respiratory Rate 21 H 21 H 21 H Respiratory Effort Respiratory Depth Respiratory Pattern Blood Pressure 128/62 H 131/113 H Blood Pressure Mean 83 121 Pulse Ox 97 97 Oxygen Delivery Method Oxygen Flow Rate (L/min) 02/28/23 12:20 02/28/23 12:30 02/28/23 12:40 Temperature Temperature Source Pulse Rate 95 93 87 Respiratory Rate 28 H 20 H 19 H Respiratory Effort Respiratory Depth Respiratory Pattern Blood Pressure 130/72 H Blood Pressure Mean 90 Pulse Ox 95 96 96 Oxygen Delivery Method Oxygen Flow Rate (L/min) 02/28/23 12:45 02/28/23 12:50 02/28/23 13:00 Temperature Temperature Source Pulse Rate 88 87 84 Respiratory Rate 22 H 28 H 18 Respiratory Effort Respiratory Depth Respiratory Pattern Blood Pressure 89/79 L Blood Pressure Mean 83 Pulse Ox 95 97 Oxygen Delivery Method Oxygen Flow Rate (L/min) 02/28/23 13:01 02/28/23 13:10 02/28/23 13:15 Temperature Temperature Source Pulse Rate 83 83 82 Respiratory Rate 18 21 H 20 H Respiratory Effort Respiratory Depth Respiratory Pattern Blood Pressure 136/69 H 140/68 H Blood Pressure Mean 90 89 Pulse Ox 97 99 97 Oxygen Delivery Method Oxygen Flow Rate (L/min) 02/28/23 13:20 02/28/23 13:30 02/28/23 13:40 Temperature Temperature Source Pulse Rate 86 82 82 Respiratory Rate 29 H 18 27 H Respiratory Effort Respiratory Depth Respiratory Pattern Blood Pressure 137/70 H Blood Pressure Mean 91 Pulse Ox 98 99 98 Oxygen Delivery Method Oxygen Flow Rate (L/min) 02/28/23 13:45 02/28/23 13:50 02/28/23 14:00 Temperature Temperature Source Pulse Rate 83 82 Respiratory Rate 25 H 21 H Respiratory Effort Respiratory Depth Respiratory Pattern Blood Pressure 123/86 H 138/64 H Blood Pressure Mean 99 85 Pulse Ox 98 Oxygen Delivery Method Oxygen Flow Rate (L/min) 02/28/23 14:10 02/28/23 14:15 02/28/23 14:20 Temperature Temperature Source Pulse Rate 83 84 81 Respiratory Rate 18 21 H 18 Respiratory Effort Respiratory Depth Respiratory Pattern Blood Pressure 131/67 H Blood Pressure Mean 87 Pulse Ox Oxygen Delivery Method Oxygen Flow Rate (L/min) 02/28/23 14:30 02/28/23 14:40 02/28/23 14:45 Temperature Temperature Source Pulse Rate 83 79 82 Respiratory Rate 22 H 18 26 H Respiratory Effort Respiratory Depth Respiratory Pattern Blood Pressure 141/71 H 125/72 H Blood Pressure Mean 92 88 Pulse Ox 97 96 96 Oxygen Delivery Method Oxygen Flow Rate (L/min) 02/28/23 14:50 02/28/23 15:00 02/28/23 15:10 Temperature Temperature Source Pulse Rate 81 81 Respiratory Rate 21 H 27 H Respiratory Effort Respiratory Depth Respiratory Pattern Blood Pressure 131/70 H Blood Pressure Mean 90 Pulse Ox 95 94 Oxygen Delivery Method Oxygen Flow Rate (L/min) 02/28/23 15:15 02/28/23 15:20 02/28/23 15:30 Temperature Temperature Source Pulse Rate 80 83 82 Respiratory Rate 22 H 21 H 23 H Respiratory Effort Respiratory Depth Respiratory Pattern Blood Pressure 140/73 H 137/69 H Blood Pressure Mean 91 90 Pulse Ox 95 94 97 Oxygen Delivery Method Nasal Cannula Oxygen Flow Rate (L/min) 4 02/28/23 16:15 02/28/23 15:40 02/28/23 15:45 Temperature Temperature Source Pulse Rate 95 82 82 Respiratory Rate 22 H 26 H 24 H Respiratory Effort Respiratory Depth Respiratory Pattern Tachypnea Blood Pressure 137/70 H Blood Pressure Mean 88 Pulse Ox 97 97 Oxygen Delivery Method Oxygen Flow Rate (L/min) 02/28/23 15:50 02/28/23 16:00 02/28/23 16:01 Temperature Temperature Source Pulse Rate 85 98 99 Respiratory Rate 23 H 31 H 20 H Respiratory Effort Respiratory Depth Respiratory Pattern Blood Pressure 112/68 Blood Pressure Mean 83 Pulse Ox 97 80 Oxygen Delivery Method Oxygen Flow Rate (L/min) 02/28/23 16:10 02/28/23 16:15 Temperature Temperature Source Pulse Rate 96 95 Respiratory Rate 27 H 31 H Respiratory Effort Respiratory Depth Respiratory Pattern Blood Pressure 121/71 H Blood Pressure Mean 85 Pulse Ox 93 90 Oxygen Delivery Method Nasal Cannula Oxygen Flow Rate (L/min) Physical Exam Narrative General: Alert, oriented HEENT: Atraumatic, normocephalic Eyes: Anicteric, normal conjunctiva, extraocular movements grossly intact Neck: Supple Respiratory: Slightly increased respiratory effort, diminished at bases with scattered wheezes Cardiovascular: Regular rate GI: Soft, nontender, nondistended Extremities: 1+ bilateral lower extremity edema Musculoskeletal: Moving all extremities Neuro: No overt focal neurological deficits Skin: No rashes appreciated Psych: Cooperative Results Lab / Micro Data 02/28/23 12:15 02/28/23 12:15 Labs: Laboratory Results - last 24 hr 02/28/23 12:15: WBC 7.8, RBC 2.33 L, Hgb 6.7 L, Hct 23.5 L, MCV 100.9 H, MCH 28.8, MCHC 28.5 L, RDW Std Deviation 74.5 H, RDW Coeff of Rafael 19.9 H, Plt Count 278, MPV 10.7, Immature Gran % (Auto) 0.900, Neut % (Auto) 74.3 H, Lymph % (Auto) 11.7 L, [place] % (Auto) 8.6, Eos % (Auto) 3.9, Baso % (Auto) 0.6, Absolute Neuts (auto) 5.8, Absolute Lymphs (auto) 0.91, Nucleated RBC % 0.3, Hypochromasia 1+, Anisocytosis 2+, Sodium 141, Potassium 5.6 H, Chloride 112 H, Carbon Dioxide 26.0, Anion Gap 3 L, BUN 35 H, Creatinine 1.75 H, Est GFR (MDRD) Af Amer 49 L, Est GFR (MDRD) Non-Af 41 L, BUN/Creatinine Ratio 20.0, Glucose 181 H, Calcium 8.5, Troponin I High Sens 18 02/28/23 16:05: Crossmatch See Detail Micro: Microbiology 02/28/23 12:15 Mucosa - Nasopharyngeal SARS-CoV-2, Influenza & RSV (PCR) - Final Rhythm Strip Rhythm Strip: Sinus Rhythm Rate: 82 Ectopy: None Imagaing Radiology Impression Chest X-Ray 02/28/23 12:20 IMPRESSION: No interval change Electronically Signed: J Carlos Soares MD at 12:46 EST Reading Location ID and State: [address] [place] [address] , Service support , Assessment & Plan Assessment/Plan (1) COPD exacerbation: (2) Type 2 diabetes mellitus: (3) History of pulmonary embolus (PE): (4) History of coronary artery stent placement: (5) History of chronic kidney disease: (6) History of COPD: (7) Heart failure: (8) Anemia: (9) Acute hyperkalemia: (10) Acute dyspnea: PLAN: Plan # Acute on chronic hypoxia secondary to acute exacerbation of COPD in setting of chronic COPD/chronic hypoxic respiratory failure with 4 L of O2 at baseline -83% on 4L NC initially in ED and tachypneic -CXR no acute change -Has had cough with productive sputum -DuoNebs, steroids -Improving after nebulizer treatments -Azithromycin -Incentive spirometry -Mucinex -COVID, flu, RSV negative, will check full viral panel -Does also feel he has some swelling in his legs, had borderline EF back in October, will also check BNP #Macrocytic Anemia -Hemoglobin 6.7 on presentation, baseline typically in 7 range and was 7.4 in December, not a significant decrease but still below threshold for transfusion -Will transfuse 1 unit and recheck -Will check FOBT -Will check iron panel, B12, folate #Hyperkalemia -Kayexalate -Received aerosols -Will recheck -Hold MEDHAT #Hx CAD -continue home meds #Hx VTE -Does not appear to be on anticoagulation, suspect due to his anemia and history of GI bleed -Per documentation previously had IVC filter in 2021 -Follows with Dr. Galeana on outpatient basis #GERD -Continue PPI #CKDIIIb # BPH -Continue home medications #Type 2 diabetes mellitus -Glucose checks and sliding scale insulin # Depression -Continue home medications #DVT ppx: SCDs Mable Pritchard MD Charges/Coding Visit Charges Inpatient E&M: 76085 Init Hosp L2
--- NOTE | 2023-02-28 16:50 | ED.RN ---
Ca Quintana, updated with pt. room and unit number
--- OUTSIDE RECORDS SUMMARY | 2023-02-28 16:59 | XMS RPT_ITS | CCD ---
Author Name Unknown Address [address] [place] [address] Organization [facility] Results Test Name Value Interpretation [...] BE BASED ON THE PRIMARY CLINICAL RECORDS. [employer] provides no warranty or guarantee of the accuracy or completeness of information in this document.
[2023-02-28 17:35] LABS: BNP,B-Type NATRIURETIC PEPTIDE 303.4 pg/mL (0-100)
[2023-02-28 17:36] LABS: Iron 33 ug/dL (65-175); Iron Binding Capacity,Total 236 ug/dL (250-450)
[2023-02-28] MEDS: 0.9% Saline Lock 10 ML Syringe IV ×3 (18:01→21:34)
[2023-02-28] MEDS: Azithromycin 500 MG in Dextrose 5%-Water (250mL Bag) 250 ML 250 MG IV (18:01)
[2023-02-28] MEDS: Calcium Gluconate 1 GM/10 ML Vial IVP (18:01)
[2023-02-28] MEDS: Tamsulosin HCl 0.4 MG Capsule 0.400000000000000022 MG PO (18:01)
[2023-02-28] MEDS: Sodium Polystyrene Sulfonate 15 GM/60 ML UDC PO ×2 (18:15→21:26)
--- NOTE | 2023-02-28 20:28 | RAD_ITS ---
STUDY: X-RAY CHEST REASON FOR EXAM: Male, 72 years old. SOB TECHNIQUE: Single AP portable view of the chest. COMPARISON: 02/28/2023 at 1224 FINDINGS: Status post median sternotomy. No change in the large right pleural effusion with right lower lobe atelectasis. No change in the small left pleural effusion with left lower lobe atelectasis. There is moderate cardiac enlargement. Normal mediastinum and sho. Normal visualized pulmonary arteries. Normal visualized aortic arch and descending thoracic aorta. Normal visualized thoracic spine. Normal visualized ribs, clavicles, and shoulders. There is no demonstrated abnormality of the visualized soft tissue structures of the upper abdomen. RAD/Chest 1 View IMPRESSION: No change from earlier today. Electronically Signed: Boston Myers MD at 21:40 EST ,
[2023-02-28] MEDS: Furosemide 40 MG/4 ML Vial IV (20:52)
[2023-02-28] MEDS: Insulin Lispro 10 UNIT in Syringe 0 ML 6 UNIT IV (21:23)
[2023-02-28] MEDS: Calcium Gluconate 1 GM/10 ML Vial 2 GM IVP (21:27)
[2023-02-28] MEDS: Dextrose 50%-Water 25 GM/50 ML DISP.SYRIN IV (21:34)
[2023-02-28] MEDS: Mirtazapine 15 MG Tablet 7.5 MG PO (21:47)
[2023-02-28] MEDS: Atorvastatin Calcium 20 MG Tablet PO (21:47)
[2023-02-28] MEDS: Pantoprazole Sodium 40 MG Tablet PO (21:47)
[2023-02-28] MEDS: Insulin Lispro 100 UNIT/ML INSULN.PEN SC (21:48)
[2023-02-28 22:11] LABS: Bedside Glucose 290 mg/dL (74-106)
[2023-02-28 22:45] LABS: Potassium 5.6 mmol/L (3.5-5.1)
[2023-03-01] VITALS (15 sets, daily range): BP systolic 104–127; BP diastolic 59–78; PULSE 69–86; RESP 14–24; TEMP 36.4–36.8; O2SAT 92–97; BMI 33.9
[2023-03-01] MEDS: Ipratropium/Albuterol Sulfate 3 ML AMPUL.NEB INHALATION ×6 (03:25→23:25)
[2023-03-01] MEDS: 0.9% Saline Lock 10 ML Syringe IV ×3 (06:34→14:21)
[2023-03-01] MEDS: Insulin Lispro 100 UNIT/ML INSULN.PEN SC ×4 (06:39→22:53)
[2023-03-01 07:10] LABS: Bedside Glucose 239 mg/dL (74-106)
--- NOTE | 2023-03-01 08:11 | PCM.PN.HOSP ---
Reason for Visit Reason for Visit: Diagnoses Anemia, unspecified (02/28/23) Type 2 diabetes mellitus without complications (02/28/23) Hyperkalemia (02/28/23) Heart failure, unspecified (02/28/23) Chronic obstructive pulmonary disease with (acute) exacerbation (02/28/23) Dyspnea, unspecified (02/28/23) Personal history of pulmonary embolism (02/28/23) Personal history of other diseases of the respiratory system (02/28/23) Personal history of other diseases of urinary system (02/28/23) Presence of coronary angioplasty implant and graft (02/28/23) Subjective Subjective Patient is a 71-year-old gentleman admitted with progressive shortness of breath and assessment of acute congestive heart failure made admitted to monitored bed for further management Objective Data Objective Data Vital Signs: Vital Signs Temp Pulse Resp BP Pulse Ox O2 Del Method O2 Flow Rate 97.5 F L 80 16 120/62 92 Nasal Cannula 6 03/01/23 03:45 03/01/23 03:45 03/01/23 03:45 03/01/23 03:45 03/01/23 03:45 03/01/23 07:50 03/01/23 07:50 Oxygen Flow Rate (L/min) 6 Oxygen Delivery Method Nasal Cannula Weight: 110.4 kg Body Mass Index (BMI) 33.9 Intake & Output: Intake and Output for Last 24 Hours 02/27/23 02/28/23 03/01/23 23:59 23:59 23:59 Intake Total 826 / 826 220 / 220 Output Total 200 / 200 500 / 500 Balance 626 / 626 -280 / -280 Lab / Micro Data 03/01/23 07:14 03/01/23 07:14 Labs: Laboratory Results - last 24 hr 02/28/23 12:15: WBC 7.8, RBC 2.33 L, Hgb 6.7 L, Hct 23.5 L, MCV 100.9 H, MCH 28.8, MCHC 28.5 L, RDW Std Deviation 74.5 H, RDW Coeff of Rafael 19.9 H, Plt Count 278, MPV 10.7, Immature Gran % (Auto) 0.900, Neut % (Auto) 74.3 H, Lymph % (Auto) 11.7 L, [place] % (Auto) 8.6, Eos % (Auto) 3.9, Baso % (Auto) 0.6, Absolute Neuts (auto) 5.8, Absolute Lymphs (auto) 0.91, Nucleated RBC % 0.3, Hypochromasia 1+, Anisocytosis 2+, Sodium 141, Potassium 5.6 H, Chloride 112 H, Carbon Dioxide 26.0, Anion Gap 3 L, BUN 35 H, Creatinine 1.75 H, Est GFR (MDRD) Af Amer 49 L, Est GFR (MDRD) Non-Af 41 L, BUN/Creatinine Ratio 20.0, Glucose 181 H, Calcium 8.5, Iron 33 L, TIBC 236 L, Iron Saturation 14.0 L, Troponin I High Sens 18, B-Natriuretic Peptide 303.4 H 02/28/23 16:05: Blood Type AB POSITIVE, Antibody Screen NEGATIVE, Crossmatch See Detail 02/28/23 16:05: Crossmatch See Detail 02/28/23 19:15: Potassium 7.0 H* 02/28/23 21:21: POC Glucose 290 H 02/28/23 22:00: Potassium 5.6 H 03/01/23 06:39: POC Glucose 239 H Micro: Microbiology 02/28/23 19:05 Mucosa - Nasopharyngeal Respiratory Panel (PCR) - Final 02/28/23 12:15 Mucosa - Nasopharyngeal SARS-CoV-2, Influenza & RSV (PCR) - Final Radiography Diagnostic Testing: Radiology Impression Chest X-Ray 02/28/23 12:20 IMPRESSION: No interval change Electronically Signed: J Carlos Soares MD at 12:46 EST , Chest X-Ray 02/28/23 20:28 IMPRESSION: No change from earlier today. Electronically Signed: Boston Myers MD at 21:40 EST , Rhythm Strip Rhythm Strip: Sinus Rhythm Rate: 82 Ectopy: None Physical Exam Narrative GENERAL: cooperative HEENT: Atraumatic; normocephalic EYES; Anicteric, Normal Conjunctiva NECK; supple, normal thyroid, RESPIRATORY: Diminished to auscultation CARDIOVASCULAR: Regular S1 S2, GI: soft, normoactive bowel sounds, : No Renal angle tenderness; EXTREMITIES: No edema, no clubbing, MUSCULOSKELETAL: no muscle wasting NEURO: Awake; no lateralizing signs. SKIN: No Rash PSYCH; Flat affect Assessment & Plan Assessment/Plan (1) Anemia: QUALIFIERS: Anemia type: unspecified type Qualified Code(s): D64.9 - Anemia, unspecified (2) Acute hyperkalemia: (3) Acute dyspnea: PLAN: Plan Patient is a 71-year-old gentleman admitted with progressive shortness of breath and assessment of acute congestive heart failure made admitted to monitored bed for further management 1. Acute hypoxia secondary to COPD with acute exacerbation ? Patient initial viral respiratory panel came back negative. Patient managed with systemic steroid, azithromycin, supplemental oxygen as well as guaifenesin for his cough 2. Chronic congestive heart failure with reduced ejection fraction ? 2D echo from 11/17/2022 demonstrated EF of 40%. Patient remains euvolemic 3. Anemia ? Patient has microcytosis do suspect patient is anemia contributing to his significant dyspnea,. Patient hemoglobin on admission was 6.7 was transfused 1 unit PRBC. Hemoglobin came up to 7.1 and with patient deemed to be symptomatic an order was given for patient to be transfused with additional 1 unit PRBC. Subsequent monitoring with daily H&H ordered 4. Hyperkalemia ? Patient potassium level on admission was 7.0. Did receive Kayexalate and subsequently admitted to monitored bed for subsequent eval 5.? Chronic hypoxic respiratory failure ? Secondary to suspected pulmonary fibrosis from prior COVID-19 infection.? Patient currently on supplemental oxygen 6..? 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 Previously treated with apixaban.? Patient did not tolerate apixaban as a result of GI bleed he underwent IVC filter placement on 05/02/2021 7..? Diabetes mellitus type II Managed with diet 8.? Rheumatoid arthritis Patient previously treated with rituximab as outpatient 9.? Non Hodgkin's lymphoma ?Apparently in remission 10.? Coronary artery disease ?With previous PCI of an LAD RCA and mid circumflex lesions 11. BPH with lower urinary obstruction - Patient treated with tamsulosin 12. GERD The patient is on PPI 13. Chronic kidney disease stage IIIb ? Patient kidney function at baseline 14..? Dyslipidemia -Patient is on statin therapy, continued at home dose 15..? Hypertension - Blood pressure controlled, home medications continued with dose adjustment as needed 16. Depression ? Patient is on SSRI 17. DVT prophylaxis ? Bilateral SCD, Time spent in the patient's overall evaluation,decision-making process, review of diagnostic data, adjustment of management, discussion with other providers, nursing nursing and ancillary staff involved in patient's care documentation,55 Minutes Charges/Coding Visit Charges Inpatient E&M: 17101 [facility] Hosp L3
[2023-03-01 08:30] LABS: Absolute Lymphocyte Count 0.46 X10^3/uL (0.83-4.51); Absolute Neutrophil Count 3.5 X10^3/uL (2.0-7.7); Basophil# 0.01 X10^3/uL; Basophil% 0.2 % (0-1); Hematocrit 23.5 % (40-54); Hemoglobin 7.1 g/dL (13.0-16.5); Lymphocyte # 0.46 X10^3/ul (0.83-4.51); Lymphocyte % 10.9 % (19-41); Mean Corp Hgb Conc 30.2 g/dL (32-36); Mean Corpuscular Hgb 29.5 pg (27.0-32.0); Mean Corpuscular Volume 97.5 fL (80-94); Monocyte# 0.17 X10^3/uL; NRBC Flagged by Analyzer 0.7 % (0-5); Neutrophil # 3.54 X10^3/uL (2.7-7.7); POSITIVE DIFFERENTIAL YES; POSITIVE MORPHOLOGY YES; Platelet Count 249 K/mm3 (150-450); RBC Distribution Width CV 19.3 % (11.6-14.6); RBC Distribution Width SD 68.9 fl (35.1-43.9); Red Blood Count 2.41 M/mm3 (4.6-6.2); White Blood Count 4.2 K/mm3 (4.4-11.0)
[2023-03-01 08:34] LABS: Differential Indicated SCAN CRITERIA MET
[2023-03-01] MEDS: Aspirin E.C. 81 MG Tablet PO (08:36)
[2023-03-01] MEDS: Finasteride 5 MG Tablet PO (08:36)
[2023-03-01] MEDS: Pantoprazole Sodium 40 MG Tablet PO ×2 (08:36→21:29)
[2023-03-01] MEDS: Ferrous Sulfate 325 MG Tablet PO (08:36)
[2023-03-01] MEDS: Escitalopram Oxalate 10 MG Tablet PO (08:36)
[2023-03-01] MEDS: Azithromycin 500 MG in Dextrose 5%-Water (250mL Bag) 250 ML 250 MG IV (08:37)
[2023-03-01] MEDS: Flu Vacc QS2023-24(65YR UP)/PF 240 MCG/0.7 ML Syringe IM (08:38)
[2023-03-01 09:00] LABS: BNP,B-Type NATRIURETIC PEPTIDE 986.1 pg/mL (0-100)
[2023-03-01 09:19] LABS: ALB/GLOB Ratio 0.9 RATIO (0.9-2.4); AST(SGOT) 8 U/L (15-37); Alanine Aminotransfer ALT/SGPT 13 U/L (16-61); Albumin, Serum 2.9 g/dL (3.2-5.0); Alkaline Phosphatase 82 U/L (45-117); Anion Gap 6 (5-15); BUN 40 mg/dL (7-18); BUN/Creat Ratio 23.7 RATIO (10-20); Calcium,Total 8.8 mg/dL (8.5-10.1); Chloride 110 mmol/L (98-107); Creatinine, Serum 1.69 mg/dL (0.70-1.30); EST Glomerular Filtration Rate 42 mL/min (>60); Est Glom Filt Rate - Afr Amer 51 mL/min (>60); Estimated Creatinine Clearance 41.46 ml/min; Ferritin 171 ng/mL (26-388); Globulin 3.3 g/dL (2.2-4.2); Glucose 254 mg/dL (74-106); Potassium 5.1 mmol/L (3.5-5.1); Protein, Total 6.2 g/dL (6.4-8.2); Sodium Level 139 mmol/L (136-145)
[2023-03-01 09:57] LABS: Anisocytosis 1+; Hypochromasia 1+; Platelet Estimate ADEQUATE (ADEQ)
[2023-03-01 11:29] LABS: Bedside Glucose 303 mg/dL (74-106)
[2023-03-01] MEDS: Albuterol 2.5 MG/3 ML VIAL.NEB. INHALATION (13:22)
--- NOTE | 2023-03-01 15:40 | CASEMGMT ---
TARAH DEL RIO in to discuss MOSS form with patient. TARAH DEL RIO explained MOSS form, patient voiced understanding. Pt signed form and filed in chart. Pt provided with a copy of signed MOSS form. Patient had no further questions or concerns at this time. Pt lying in bed with oxygen on. Pt states he has oxygen through [employer] at 4 L cont. He has portable tanks to be brought in upon dc. Pt lives with and granddtr. Pt granddtr is able to assist in his care. Pt reports he was I in ADL's but feels now that he would need assistance. Pt reports he has had [facility] in the past and would like to have them back. He denies need for a list of other options. Pt states he thinks he is active with Palliative Care but cannot think of the name of it. Noted from previous hospital stay that pt had [facility]. Pt had been ambulating I. He has a cane and FWW at home. DC Plan: Home with HHC, follow for increase in oxygen needs.
[2023-03-01] MEDS: Tamsulosin HCl 0.4 MG Capsule 0.400000000000000022 MG PO (16:51)
[2023-03-01 17:56] LABS: Bedside Glucose 317 mg/dL (74-106)
[2023-03-01] MEDS: Atorvastatin Calcium 20 MG Tablet PO (21:29)
[2023-03-01] MEDS: Mirtazapine 15 MG Tablet 7.5 MG PO (21:31)
[2023-03-02] VITALS (15 sets, daily range): BP systolic 119–137; BP diastolic 66–78; PULSE 74–92; RESP 14–20; TEMP 36.4–36.6; O2SAT 79–99; BMI 34.0
[2023-03-02] LABS: Bedside Glucose 323 mg/dL (74-106)
[2023-03-02] MEDS: Ipratropium/Albuterol Sulfate 3 ML AMPUL.NEB INHALATION ×6 (03:18→23:18)
[2023-03-02] MEDS: Insulin Lispro 100 UNIT/ML INSULN.PEN SC ×4 (06:49→22:05)
[2023-03-02 06:53] LABS: Absolute Neutrophil Count 6.7 X10^3/uL (2.0-7.7); Basophil# 0.01 X10^3/uL; Basophil% 0.1 % (0-1); Hematocrit 28.5 % (40-54); Hemoglobin 8.7 g/dL (13.0-16.5); Lymphocyte % 5.3 % (19-41); Mean Corp Hgb Conc 30.5 g/dL (32-36); Mean Corpuscular Hgb 29.2 pg (27.0-32.0); Mean Corpuscular Volume 95.6 fL (80-94); Mean Platelet Vol. 11.1 fl (6.2-12.0); NRBC Flagged by Analyzer 0.8 % (0-5); Neutrophil # 6.72 X10^3/uL (2.7-7.7); Neutrophil % 89.5 % (47-70); POSITIVE DIFFERENTIAL YES; POSITIVE MORPHOLOGY YES; Platelet Count 273 K/mm3 (150-450); RBC Distribution Width CV 19.3 % (11.6-14.6); RBC Distribution Width SD 67.8 fl (35.1-43.9); Red Blood Count 2.98 M/mm3 (4.6-6.2); White Blood Count 7.5 K/mm3 (4.4-11.0)
[2023-03-02 06:56] LABS: Differential Indicated SCAN CRITERIA MET
[2023-03-02 07:08] LABS: Bedside Glucose 316 mg/dL (74-106)
[2023-03-02 07:15] LABS: Anion Gap 3 (5-15); BUN 47 mg/dL (7-18); BUN/Creat Ratio 26.7 RATIO (10-20); Calcium,Total 8.9 mg/dL (8.5-10.1); Chloride 110 mmol/L (98-107); Creatinine, Serum 1.76 mg/dL (0.70-1.30); EST Glomerular Filtration Rate 41 mL/min (>60); Est Glom Filt Rate - Afr Amer 49 mL/min (>60); Estimated Creatinine Clearance 39.81 ml/min; Glucose 339 mg/dL (74-106); Magnesium 2.5 mg/dL (1.6-2.6); Phosphorus 3.8 mg/dL (2.5-4.9); Potassium 5.1 mmol/L (3.5-5.1); Sodium Level 139 mmol/L (136-145)
--- NOTE | 2023-03-02 07:55 | PN.HOSP_ITS ---
Reason for Visit Reason for Visit: Diagnoses Anemia, unspecified (02/28/23) Type 2 diabetes mellitus without complications (02/28/23) Hyperkalemia (02/28/23) Heart failure, unspecified (02/28/23) Chronic obstructive pulmonary disease with (acute) exacerbation (02/28/23) Dyspnea, unspecified (02/28/23) Personal history of pulmonary embolism (02/28/23) Personal history of other diseases of the respiratory system (02/28/23) Personal history of other diseases of urinary system (02/28/23) Presence of coronary angioplasty implant and graft (02/28/23) Subjective Subjective Patient seen clinical condition improved. Plan is for patient to be assessed for possible discharge Objective Data Objective Data Vital Signs: Vital Signs Temp Pulse Resp BP Pulse Ox O2 Del Method O2 Flow Rate 97.9 F 74 16 121/78 H 99 Nasal Cannula 3 03/02/23 05:00 03/02/23 07:06 03/02/23 07:06 03/02/23 05:00 03/02/23 07:06 03/02/23 07:06 03/02/23 07:06 Oxygen Flow Rate (L/min) 3 Oxygen Delivery Method Nasal Cannula Weight: 110.495 kg Body Mass Index (BMI) 34.0 Intake & Output: Intake and Output for Last 24 Hours 02/28/23 03/01/23 03/02/23 23:59 23:59 23:59 Intake Total 826 / 826 626 / 726 100 / 100 Output Total 200 / 200 900 / 1250 350 / 350 Balance 626 / 626 -274 / -524 -250 / -250 Lab / Micro Data 03/02/23 05:59 03/02/23 05:59 Labs: Laboratory Results - last 24 hr 02/28/23 16:05: Blood Type AB POSITIVE, Antibody Screen NEGATIVE, Crossmatch See Detail 02/28/23 16:05: Crossmatch See Detail 03/01/23 07:14: WBC 4.2 L, RBC 2.41 L, Hgb 7.1 L, Hct 23.5 L, MCV 97.5 H, MCH 29.5, MCHC 30.2 L D, RDW Std Deviation 68.9 H, RDW Coeff of Rafael 19.3 H, Plt Count 249, MPV 11.0, Immature Gran % (Auto) 0.900, Neut % (Auto) 84.0 H, Lymph % (Auto) 10.9 L, [place] % (Auto) 4.0, Eos % (Auto) 0.0, Baso % (Auto) 0.2, Absolute Neuts (auto) 3.5, Absolute Lymphs (auto) 0.46 L, Nucleated RBC % 0.7, Diff Path Review June, Platelet Estimate ADEQUATE, Hypochromasia 1+, Anisocytosis 1+, Sodium 139, Potassium 5.1, Chloride 110 H, Carbon Dioxide 23.0, Anion Gap 6, BUN 40 H, Creatinine 1.69 H, Estim Creat Clear Calc 41.46, Est GFR (MDRD) Af Amer 51 L, Est GFR (MDRD) Non-Af 42 L, BUN/Creatinine Ratio 23.7 H, Glucose 254 H, Calcium 8.8, Ferritin 171, Total Bilirubin 0.60, AST 8 L, ALT 13 L, Alkaline Phosphatase 82, B-Natriuretic Peptide 986.1 H, Total Protein 6.2 L, Albumin 2.9 L, Globulin 3.3, Albumin/Globulin Ratio 0.9, Folate 4.90 03/01/23 11:09: POC Glucose 303 H 03/01/23 16:49: POC Glucose 317 H 03/01/23 22:51: POC Glucose 323 H 03/02/23 05:59: WBC 7.5, RBC 2.98 L, Hgb 8.7 L, Hct 28.5 L, MCV 95.6 H, MCH 29.2, MCHC 30.5 L, RDW Std Deviation 67.8 H, RDW Coeff of Rafael 19.3 H, Plt Count 273, MPV 11.1, Immature Gran % (Auto) 1.100 H, Neut % (Auto) 89.5 H, Lymph % (Auto) 5.3 L, [place] % (Auto) 4.0, Eos % (Auto) 0.0, Baso % (Auto) 0.1, Absolute Neuts (auto) 6.7, Absolute Lymphs (auto) 0.40 L, Nucleated RBC % 0.8, Sodium 139, Potassium 5.1, Chloride 110 H, Carbon Dioxide 26.0, Anion Gap 3 L, BUN 47 H , Creatinine 1.76 H, Estim Creat Clear Calc 39.81, Est GFR (MDRD) Af Amer 49 L, Est GFR (MDRD) Non-Af 41 L, BUN/Creatinine Ratio 26.7 H, Glucose 339 H, Calcium 8.9, Phosphorus 3.8, Magnesium 2.5 03/02/23 06:48: POC Glucose 316 H Micro: Microbiology 03/01/23 12:45 Stool Stool Occult Blood ([facility]) - Final Occult Blood Positive 02/28/23 19:05 Mucosa - Nasopharyngeal Respiratory Panel (PCR) - Final 02/28/23 12:15 Mucosa - Nasopharyngeal SARS-CoV-2, Influenza & RSV (PCR) - Final Rhythm Strip Rhythm Strip: Sinus Rhythm Rate: 82 Ectopy: None Physical Exam Narrative GENERAL: cooperative HEENT: Atraumatic; normocephalic EYES; Anicteric, Normal Conjunctiva NECK; supple, normal thyroid, RESPIRATORY: Diminished to auscultation CARDIOVASCULAR: Regular S1 S2, GI: soft, normoactive bowel sounds, : No Renal angle tenderness; EXTREMITIES: No edema, no clubbing, MUSCULOSKELETAL: no muscle wasting NEURO: Awake; no lateralizing signs. SKIN: No Rash PSYCH; Flat affect Assessment & Plan Assessment/Plan (1) Anemia: QUALIFIERS: Anemia type: unspecified type Qualified Code(s): D64.9 - Anemia, unspecified (2) Acute hyperkalemia: (3) Acute dyspnea: PLAN: Plan Patient is a 71-year-old gentleman admitted with progressive shortness of breath and assessment of acute congestive heart failure made admitted to monitored bed for further management 1. Acute hypoxia secondary to COPD with acute exacerbation ? Patient initial viral respiratory panel came back negative. Patient managed with systemic steroid, azithromycin, supplemental oxygen as well as guaifenesin for his cough ? 03/02/2023; patient remains stable 2. Chronic congestive heart failure with reduced ejection fraction ? 2D echo from 11/17/2022 demonstrated EF of 40%. Patient remains euvolemic 3. Anemia ? Patient has microcytosis do suspect patient is anemia contributing to his significant dyspnea,. Patient hemoglobin on admission was 6.7 was transfused 1 unit PRBC. Hemoglobin came up to 7.1 and with patient deemed to be symptomatic an order was given for patient to be transfused with additional 1 unit PRBC. Subsequent monitoring with daily H&H ordered 4. Hyperkalemia ? Patient potassium level on admission was 7.0. Did receive Kayexalate and subsequently admitted to monitored bed for subsequent eval 5.? Chronic hypoxic respiratory failure ? Secondary to suspected pulmonary fibrosis from prior COVID-19 infection.? Patient currently on supplemental oxygen 6..? 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 Previously treated with apixaban.? Patient did not tolerate apixaban as a result of GI bleed he underwent IVC filter placement on 05/02/2021 7..? Diabetes mellitus type II Managed with diet 8.? Rheumatoid arthritis Patient previously treated with rituximab as outpatient 9.? Non Hodgkin's lymphoma ?Apparently in remission 10.? Coronary artery disease ?With previous PCI of an LAD RCA and mid circumflex lesions 11. BPH with lower urinary obstruction - Patient treated with tamsulosin 12. GERD The patient is on PPI 13. Chronic kidney disease stage IIIb ? Patient kidney function at baseline 14..? Dyslipidemia -Patient is on statin therapy, continued at home dose 15..? Hypertension - Blood pressure controlled, home medications continued with dose adjustment as needed 16. Depression ? Patient is on SSRI 17. DVT prophylaxis ? Bilateral SCD, Time spent in the patient's overall evaluation,decision-making process, review of diagnostic data, adjustment of management, discussion with other providers, nursing nursing and ancillary staff involved in patient's care documentation, 35 Minutes Charges/Coding Visit Charges Inpatient E&M: 55708 Subs Hosp L2
[2023-03-02] MEDS: Aspirin E.C. 81 MG Tablet PO (09:00)
[2023-03-02] MEDS: Ferrous Sulfate 325 MG Tablet PO (09:00)
--- NOTE | 2023-03-02 10:50 | DS.PCM_ITS ---
Providers Date of Admission: 02/28/23 Date of Discharge: 03/02/23 Primary Care Physician: Dr. Donna Will MD Reason For Visit: COPD, ANEMIA, CKD, RT. PLEURAL EFFUSION Diagnosis Discharge Diagnosis (1) Anemia: Status: Acute Code(s): D64.9 - Anemia, unspecified Qualifiers: Anemia type: unspecified type Qualified Code(s): D64.9 - Anemia, unspecified (2) Acute hyperkalemia: Status: Acute Code(s): E87.5 - Hyperkalemia (3) Acute dyspnea: Status: Acute Code(s): R06.00 - Dyspnea, unspecified Plan Patient is a 71-year-old gentleman admitted with progressive shortness of breath and assessment of acute congestive heart failure made admitted to monitored bed for further management 1. Acute hypoxia secondary to COPD with acute exacerbation ? Patient initial viral respiratory panel came back negative. Patient managed with systemic steroid, azithromycin, supplemental oxygen as well as guaifenesin for his cough ? 03/02/2023; patient remains stable 2. Chronic congestive heart failure with reduced ejection fraction ? 2D echo from 11/17/2022 demonstrated EF of 40%. Patient remains euvolemic 3. Anemia ? Patient has microcytosis do suspect patient is anemia contributing to his significant dyspnea,. Patient hemoglobin on admission was 6.7 was transfused 1 unit PRBC. Hemoglobin came up to 7.1 and with patient deemed to be symptomatic an order was given for patient to be transfused with additional 1 unit PRBC. Subsequent monitoring with daily H&H ordered 4. Hyperkalemia ? Patient potassium level on admission was 7.0. Did receive Kayexalate and subsequently admitted to monitored bed for subsequent eval ? Patient was on lisinopril this was discontinued on discharge 5.? Chronic hypoxic respiratory failure ? Secondary to suspected pulmonary fibrosis from prior COVID-19 infection.? Patient currently on supplemental oxygen 6..? 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 Previously treated with apixaban.? Patient did not tolerate apixaban as a result of GI bleed he underwent IVC filter placement on 05/02/2021 7..? Diabetes mellitus type II Managed with diet 8.? Rheumatoid arthritis Patient previously treated with rituximab as outpatient 9.? Non Hodgkin's lymphoma ?Apparently in remission 10.? Coronary artery disease ?With previous PCI of an LAD RCA and mid circumflex lesions 11. BPH with lower urinary obstruction - Patient treated with tamsulosin 12. GERD The patient is on PPI 13. Chronic kidney disease stage IIIb ? Patient kidney function at baseline 14..? Dyslipidemia -Patient is on statin therapy, continued at home dose 15..? Hypertension - Blood pressure controlled, home medications continued with dose adjustment as needed 16. Depression ? Patient is on SSRI 17. DVT prophylaxis ? Bilateral SCD, Time spent in the patient's overall evaluation,decision-making process, review of diagnostic data, adjustment of management, discussion with other providers, nursing nursing and ancillary staff involved in patient's care documentation, 35 Minutes Medications at Discharge Home Medications nitroglycerin 0.4 mg sublingual tablet (Nitrostat) 0.4 mg sublingual Q5M PRN chest pain #30 tabs 09/25/20 atorvastatin 40 mg tablet 20 mg PO QHS cholesterol 10/09/21 aspirin 81 mg tablet,delayed release 81 mg PO DAILY 12/31/21 finasteride 5 mg tablet 5 mg PO DAILY 08/14/22 tamsulosin 0.4 mg capsule 0.4 mg PO DAILY 08/14/22 ferrous sulfate 325 mg (65 mg iron) tablet 325 mg PO DAILY iron supplement 09/13/22 multivitamin 1 tab PO DAILY 09/13/22 pantoprazole 40 mg tablet,delayed release 40 mg PO BID #180 tabs 09/23/22 escitalopram oxalate 10 mg tablet 10 mg PO DAILY mood 90 days #90 tabs 10/14/22 mirtazapine 15 mg tablet (Remeron) 7.5 mg (1/2 x 15 mg) PO QHS sleep #90 tabs 11/04/22 budesonide 1 mg/2 mL suspension for nebulization 1 mg inhalation Q12H lungs 11/15/22 albuterol sulfate 2.5 mg/3 mL (0.083 %) solution for nebulization 2.5 mg (3 mL) inhalation Q4H PRN Sob &/Or Wheezing #540 mL 01/13/23 ipratropium bromide 0.02 % solution for inhalation 2.5 ml inhalation Q6H PRN shortness of breath or wheezing #150 mL 01/13/23 azithromycin 500 mg tablet 500 mg PO DAILY 3 days #3 tabs 03/02/23 guaifenesin 1,200 mg tablet, extended release 12 hr (Mucus Relief ER) 1,200 mg PO BID 10 days #20 tabs 03/02/23 prednisone 20 mg tablet 20 mg PO BID #10 tabs 03/02/23 Hospital Course Summary of Care Provided Minutes Spent on Discharge: 35 Physical Exam Narrative GENERAL: cooperative HEENT: Atraumatic; normocephalic EYES; Anicteric, Normal Conjunctiva NECK; supple, normal thyroid, RESPIRATORY: Diminished to auscultation CARDIOVASCULAR: Regular S1 S2, GI: soft, normoactive bowel sounds, : No Renal angle tenderness; EXTREMITIES: No edema, no clubbing, MUSCULOSKELETAL: no muscle wasting NEURO: Awake; no lateralizing signs. SKIN: No Rash PSYCH; Flat affect Weight / BMI Weight Weight: 110.495 kg Body Mass Index (BMI) 34.0 ABG / Lab / Microbiology Data 03/02/23 05:59 03/02/23 05:59 Laboratory: Laboratory Results - last 24 hr 02/28/23 16:05: Blood Type AB POSITIVE, Antibody Screen NEGATIVE, Crossmatch See Detail 02/28/23 16:05: Crossmatch See Detail 03/01/23 07:14: Diff Path Review May laxmi 03/01/23 11:09: POC Glucose 303 H 03/01/23 16:49: POC Glucose 317 H 03/01/23 22:51: POC Glucose 323 H 03/02/23 05:59: WBC 7.5, RBC 2.98 L, Hgb 8.7 L, Hct 28.5 L, MCV 95.6 H, MCH 29.2, MCHC 30.5 L, RDW Std Deviation 67.8 H, RDW Coeff of Rafael 19.3 H, Plt Count 273, MPV 11.1, Immature Gran % (Auto) 1.100 H, Neut % (Auto) 89.5 H, Lymph % (Auto) 5.3 L, [place] % (Auto) 4.0, Eos % (Auto) 0.0, Baso % (Auto) 0.1, Absolute Neuts (auto) 6.7, Absolute Lymphs (auto) 0.40 L, Nucleated RBC % 0.8, Sodium 139, Potassium 5.1, Chloride 110 H, Carbon Dioxide 26.0, Anion Gap 3 L, BUN 47 H , Creatinine 1.76 H, Estim Creat Clear Calc 39.81, Est GFR (MDRD) Af Amer 49 L, Est GFR (MDRD) Non-Af 41 L, BUN/Creatinine Ratio 26.7 H, Glucose 339 H, Calcium 8.9, Phosphorus 3.8, Magnesium 2.5 03/02/23 06:48: POC Glucose 316 H Microbiology: Microbiology 03/01/23 12:45 Stool Stool Occult Blood ([facility]) - Final Occult Blood Positive 02/28/23 19:05 Mucosa - Nasopharyngeal Respiratory Panel (PCR) - Final 02/28/23 12:15 Mucosa - Nasopharyngeal SARS-CoV-2, Influenza & RSV (PCR) - F inal D/C Instructions Discharge Diet: No restrictions Discharge Activity: Return to Normal Activity Call your doctor if you observe: Fever of 101 or Higher, Shortness of breath, Fainting spells and Chest pain Meaningful Use Info Meaningful Use Diagnoses (Choose all that apply): None applicable Discharge Plan Admission Admit Date/Time: 02/28/23 16:42 Attending Provider: Jordan Ortiz Primary Care Provider: Donna Will Consulting Providers: Mable Pritchard Discharge Orders/Prescriptions Prescriptions: New guaifenesin [Mucus Relief ER] 1,200 mg Tablet Extended Release 12hr 1,200 mg PO BID 10 Days Qty: 20 0RF prednisone 20 mg tablet 20 mg PO BID Qty: 10 0RF azithromycin 500 mg tablet 500 mg PO DAILY 3 Days Qty: 3 0RF Continued nitroglycerin [Nitrostat] 0.4 mg tablet, sublingual 0.4 mg SUBLINGUAL Q5M PRN (Reason: chest pain) Qty: 30 0RF Rx Instructions: until response; do not exceed 3 doses per episode multivitamin Tablet 1 tab PO DAILY tamsulosin 0.4 mg capsule 0.4 mg PO DAILY finasteride 5 mg tablet 5 mg PO DAILY ferrous sulfate 325 mg (65 mg iron) tablet 325 mg PO DAILY atorvastatin 40 mg tablet 20 mg PO QHS aspirin 81 mg Tablet,Delayed Release (Dr/Ec) 81 mg PO DAILY budesonide 1 mg/2 mL suspension for nebulization 1 mg inhalation Q12H pantoprazole 40 mg tablet,delayed release (DR/EC) 40 mg PO BID Qty: 180 3RF escitalopram oxalate 10 mg tablet 10 mg PO DAILY 90 Days Qty: 90 3RF mirtazapine [Remeron] 15 mg tablet 7.5 mg PO QHS Qty: 90 1RF ipratropium bromide 0.02 % solution 2.5 ml inhalation Q6H PRN (Reason: shortness of breath or wheezing) Qty: 150 6RF albuterol sulfate 2.5 mg /3 mL (0.083 %) solution for nebulization 2.5 mg inhalation Q4H PRN (Reason: Sob &/Or Wheezing) Qty: 540 3RF Discontinued lisinopril 2.5 mg tablet 2.5 mg PO DAILY Qty: 90 3RF Referrals / Follow Up: Donna Will MD [Primary Care Provider] - Within 1 Week Disposition Disposition (needs filled in before D/C Order can be placed): Home, Self Care Charges/Coding Visit Charges Inpatient E&M: 79407 Disch Hosp >30min
[2023-03-02 10:58] LABS: Anisocytosis 2+; Differential Comment SCANNED; Macrocytosis 1+; Microcytosis 1+
[2023-03-02] MEDS: Azithromycin 500 MG in Dextrose 5%-Water (250mL Bag) 250 ML 250 MG IV (11:00)
[2023-03-02] MEDS: guaiFENesin 1,200 MG Tablet 1200 MG PO (11:00)
[2023-03-02] MEDS: Pantoprazole Sodium 40 MG Tablet PO ×2 (11:00→21:59)
[2023-03-02] MEDS: Finasteride 5 MG Tablet PO (11:00)
[2023-03-02] MEDS: 0.9% Saline Lock 10 ML Syringe IV ×2 (11:00→22:07)
[2023-03-02] MEDS: Escitalopram Oxalate 10 MG Tablet PO (11:00)
[2023-03-02 11:33] LABS: Bedside Glucose 334 mg/dL (74-106)
[2023-03-02] MEDS: Tamsulosin HCl 0.4 MG Capsule 0.400000000000000022 MG PO (16:51)
[2023-03-02 17:13] LABS: Bedside Glucose 428 mg/dL (74-106)
[2023-03-02] MEDS: Atorvastatin Calcium 20 MG Tablet PO (21:58)
[2023-03-02] MEDS: Mirtazapine 15 MG Tablet 7.5 MG PO (21:58)
[2023-03-02] MEDS: guaiFENesin 10 ML UDC (200MG/10ML) PO (22:01)
[2023-03-02 23:48] LABS: Bedside Glucose 346 mg/dL (74-106)
[2023-03-03] VITALS (14 sets, daily range): BP systolic 102–137; BP diastolic 55–78; PULSE 69–93; RESP 16–28; TEMP 36.4–36.7; O2SAT 91–98; BMI 34.0
[2023-03-03] MEDS: Ipratropium/Albuterol Sulfate 3 ML AMPUL.NEB INHALATION ×6 (03:22→23:25)
[2023-03-03] MEDS: guaiFENesin 10 ML UDC (200MG/10ML) PO ×4 (04:14→23:07)
[2023-03-03] MEDS: 0.9% Saline Lock 10 ML Syringe IV (05:22)
[2023-03-03] MEDS: Insulin Lispro 100 UNIT/ML INSULN.PEN SC ×4 (06:30→23:05)
[2023-03-03 06:51] LABS: Absolute Lymphocyte Count 0.25 X10^3/uL (0.83-4.51); Absolute Neutrophil Count 6.5 X10^3/uL (2.0-7.7); Hematocrit 27.7 % (40-54); Hemoglobin 8.6 g/dL (13.0-16.5); Lymphocyte # 0.25 X10^3/ul (0.83-4.51); Lymphocyte % 3.5 % (19-41); Mean Corpuscular Hgb 29.8 pg (27.0-32.0); Mean Corpuscular Volume 95.8 fL (80-94); Mean Platelet Vol. 10.8 fl (6.2-12.0); Monocyte# 0.28 X10^3/uL; Monocyte% 3.9 % (0-10); NRBC Flagged by Analyzer 0.4 % (0-5); Neutrophil # 6.51 X10^3/uL (2.7-7.7); Neutrophil % 91.8 % (47-70); POSITIVE DIFFERENTIAL YES; POSITIVE MORPHOLOGY YES; Platelet Count 253 K/mm3 (150-450); Red Blood Count 2.89 M/mm3 (4.6-6.2); White Blood Count 7.1 K/mm3 (4.4-11.0)
[2023-03-03 06:54] LABS: Bedside Glucose 302 mg/dL (74-106)
[2023-03-03 07:07] LABS: Differential Indicated SCAN CRITERIA MET
[2023-03-03 07:14] LABS: Anion Gap 3 (5-15); BUN 51 mg/dL (7-18); BUN/Creat Ratio 32.5 RATIO (10-20); Calcium,Total 8.9 mg/dL (8.5-10.1); Chloride 110 mmol/L (98-107); Creatinine, Serum 1.57 mg/dL (0.70-1.30); EST Glomerular Filtration Rate 46 mL/min (>60); Est Glom Filt Rate - Afr Amer 56 mL/min (>60); Estimated Creatinine Clearance 44.63 ml/min; Glucose 315 mg/dL (74-106); Potassium 5.1 mmol/L (3.5-5.1); Sodium Level 139 mmol/L (136-145)
[2023-03-03 07:49] LABS: Anisocytosis 2+
[2023-03-03] MEDS: Finasteride 5 MG Tablet PO (08:29)
[2023-03-03] MEDS: Pantoprazole Sodium 40 MG Tablet PO ×2 (08:30→23:06)
[2023-03-03] MEDS: Escitalopram Oxalate 10 MG Tablet PO (08:30)
[2023-03-03] MEDS: Ferrous Sulfate 325 MG Tablet PO (08:30)
[2023-03-03] MEDS: Aspirin E.C. 81 MG Tablet PO (08:30)
--- NOTE | 2023-03-03 09:03 | PCM.PN.HOSP ---
Reason for Visit Reason for Visit: Diagnoses Anemia, unspecified (02/28/23) Type 2 diabetes mellitus without complications (02/28/23) Hyperkalemia (02/28/23) Heart failure, unspecified (02/28/23) Chronic obstructive pulmonary disease with (acute) exacerbation (02/28/23) Dyspnea, unspecified (02/28/23) Personal history of pulmonary embolism (02/28/23) Personal history of other diseases of the respiratory system (02/28/23) Personal history of other diseases of urinary system (02/28/23) Presence of coronary angioplasty implant and graft (02/28/23) Subjective Subjective Patient seen plan to discharge patient home the day prior was discontinued after patient did experience significant dyspnea at rest. Seen this a.m. Still complains of shortness of breath. H&H remained stable. Objective Data Objective Data Vital Signs: Vital Signs Temp Pulse Resp BP Pulse Ox O2 Del Method O2 Flow Rate 97.5 F L 93 20 H 131/78 H 94 Nasal Cannula 4 03/03/23 08:25 03/03/23 08:25 03/03/23 08:25 03/03/23 08:25 03/03/23 08:25 03/03/23 08:25 03/03/23 08:25 Oxygen Flow Rate (L/min) 4 Oxygen Delivery Method Nasal Cannula Weight: 110.6 kg Body Mass Index (BMI) 34.0 Intake & Output: Intake and Output for Last 24 Hours 03/01/23 03/02/23 03/03/23 23:59 23:59 23:59 Intake Total 626 / 726 1455 / 1675 460 / 460 Output Total 900 / 1250 1350 / 1700 600 / 600 Balance -274 / -524 105 / -25 -140 / -140 Lab / Micro Data 03/03/23 06:36 03/03/23 06:36 Labs: Laboratory Results - last 24 hr 03/02/23 05:59: Differential Comment SCANNED, Anisocytosis 2+, Microcytosis 1+, Macrocytosis 1+ 03/02/23 11:11: POC Glucose 334 H 03/02/23 16:45: POC Glucose 428 H 03/02/23 22:04: POC Glucose 346 H 03/03/23 06:28: POC Glucose 302 H 03/03/23 06:36: WBC 7.1, RBC 2.89 L, Hgb 8.6 L, Hct 27.7 L, MCV 95.8 H, MCH 29.8, MCHC 31.0 L, RDW Std Deviation 67.0 H, RDW Coeff of Rafael 19.0 H, Plt Count 253, MPV 10.8, Immature Gran % (Auto) 0.800, Neut % (Auto) 91.8 H, Lymph % (Auto) 3.5 L, [place] % (Auto) 3.9, Eos % (Auto) 0.0, Baso % (Auto) 0.0, Absolute Neuts (auto) 6.5, Absolute Lymphs (auto) 0.25 L, Nucleated RBC % 0.4, Anisocytosis 2+, Sodium 139, Potassium 5.1, Chloride 110 H, Carbon Dioxide 26.0, Anion Gap 3 L, BUN 51 H, Creatinine 1.57 H, Estim Creat Clear Calc 44.63, Est GFR (MDRD) Af Amer 56 L, Est GFR (MDRD) Non-Af 46 L, BUN/Creatinine Ratio 32.5 H, Glucose 315 H, Calcium 8.9 Micro: Microbiology 03/01/23 12:45 Stool Stool Occult Blood ([facility]) - Final Occult Blood Positive 02/28/23 19:05 Mucosa - Nasopharyngeal Respiratory Panel (PCR) - Final 02/28/23 12:15 Mucosa - Nasopharyngeal SARS-CoV-2, Influenza & RSV (PCR) - Final Rhythm Strip Rhythm Strip: Sinus Rhythm Rate: 82 Ectopy: None Physical Exam Narrative GENERAL: cooperative HEENT: Atraumatic; normocephalic EYES; Anicteric, Normal Conjunctiva NECK; supple, normal thyroid, RESPIRATORY: Diminished to auscultation CARDIOVASCULAR: Regular S1 S2, GI: soft, normoactive bowel sounds, : No Renal angle tenderness; EXTREMITIES: No edema, no clubbing, MUSCULOSKELETAL: no muscle wasting NEURO: Awake; no lateralizing signs. SKIN: No Rash PSYCH; Flat affect Assessment & Plan Assessment/Plan (1) Anemia: QUALIFIERS: Anemia type: unspecified type Qualified Code(s): D64.9 - Anemia, unspecified (2) Acute hyperkalemia: (3) Acute dyspnea: PLAN: Plan Patient is a 71-year-old gentleman admitted with progressive shortness of breath and assessment of acute congestive heart failure made admitted to monitored bed for further management 1. Acute hypoxia secondary to COPD with acute exacerbation ? Patient initial viral respiratory panel came back negative. Patient managed with systemic steroid, azithromycin, supplemental oxygen as well as guaifenesin for his cough ? 03/02/2023; patient remains stable ? 03/03/2023. Plan to discharge patient home the day prior discontinued following continuous dyspnea. 2. Acute on chronic congestive heart failure with reduced ejection fraction ? 2D echo from 11/17/2022 demonstrated EF of 40%. Patient remains euvolemic ? 03/03/2023, given patient dyspnea ordered BMP patient started on Lasix 3. Anemia ? Patient has microcytosis do suspect patient is anemia contributing to his significant dyspnea,. Patient hemoglobin on admission was 6.7 was transfused 1 unit PRBC. Hemoglobin came up to 7.1 and with patient deemed to be symptomatic an order was given for patient to be transfused with additional 1 unit PRBC. Subsequent monitoring with daily H&H ordered 4. Hyperkalemia ? Patient potassium level on admission was 7.0. Did receive Kayexalate and subsequently admitted to monitored bed for subsequent eval ? Patient was on lisinopril this was discontinued on discharge 5.? Chronic hypoxic respiratory failure ? Secondary to suspected pulmonary fibrosis from prior COVID-19 infection.? Patient currently on supplemental oxygen 6..? 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 Previously treated with apixaban.? Patient did not tolerate apixaban as a result of GI bleed he underwent IVC filter placement on 05/02/2021 7..? Diabetes mellitus type II Managed with diet 8.? Rheumatoid arthritis Patient previously treated with rituximab as outpatient 9.? Non Hodgkin's lymphoma ?Apparently in remission 10.? Coronary artery disease ?With previous PCI of an LAD RCA and mid circumflex lesions 11. BPH with lower urinary obstruction - Patient treated with tamsulosin 12. GERD The patient is on PPI 13. Chronic kidney disease stage IIIb ? Patient kidney function at baseline 14..? Dyslipidemia -Patient is on statin therapy, continued at home dose 15..? Hypertension - Blood pressure controlled, home medications continued with dose adjustment as needed 16. Depression ? Patient is on SSRI 17. DVT prophylaxis ? Bilateral SCD, Time spent in the patient's overall evaluation,decision-making process, review of diagnostic data, adjustment of management, discussion with other providers, nursing nursing and ancillary staff involved in patient's care documentation, 50 Minutes Charges/Coding Visit Charges Inpatient E&M: 88616 Subs Hosp L3
--- NOTE | 2023-03-03 09:26 | RAD_ITS ---
EXAM: XR CHEST, 1 VIEW CLINICAL INDICATION: dyspnea TECHNIQUE: Frontal view of the chest. COMPARISON: XR Chest dated 02/28/2023 FINDINGS: LUNGS AND PLEURAL SPACES: Persistent bilateral pleural effusions with interval decrease in size of the right pleural effusion. Residual atelectasis of the left lower lobe. Improving pulmonary vascular congestion. HEART: Stable normal heart size. MEDIASTINUM: No mediastinal or hilar mass. BONES/JOINTS: Sternotomy wires in place. RAD/Chest 1 View (Portable) IMPRESSION: Improving right pleural effusion and pulmonary vascular congestion. Electronically Signed: Antonio Field MD at 10:05 EST ,
[2023-03-03 09:36] LABS: Vitamin B12 551 pg/mL (211-911)
[2023-03-03 09:51] LABS: BNP,B-Type NATRIURETIC PEPTIDE 593.7 pg/mL (0-100)
[2023-03-03] MEDS: Furosemide 40 MG/4 ML Vial IV ×2 (10:39→17:31)
[2023-03-03] MEDS: Azithromycin 500 MG in Dextrose 5%-Water (250mL Bag) 250 ML 250 MG IV (10:42)
--- NOTE | 2023-03-03 10:52 | CASEMGMT ---
Discharge Planning Referral sent to [facility] via [facility]. Batool Zeng, Discharge Planning Asst.
[2023-03-03 12:07] LABS: Bedside Glucose 347 mg/dL (74-106)
[2023-03-03 12:07] LABS: Pathologist Review Reviewed
--- NOTE | 2023-03-03 13:05 | CASEMGMT ---
Discharge Planning A list of?HH providers including quality and resource use data and consistent with the patient's preferred geographic region, medical needs, and insurance network was created in [facility].? This list was provided to the RN QUANG. Batool Zeng, Discharge Planning Asst.
--- NOTE | 2023-03-03 13:38 | CASEMGMT ---
Addendum entered by Brittani Zaman 03/03/23 14:08: TARAH DEL RIO received call back from [facility] and they are able to accept patient with planned start of care for Friday03/05/23. TARAH DEL RIO updated patient regarding acceptance. Original Note: TARAH DEL RIO in to updated patient that [facility] is not able to accept patient due to lack of therapy in patient's service area. TARAH DEL RIO provided patient with [facility]. Patient would like [facility]. Patient had no further questions or concerns. TARAH DEL RIO called and made referral to [facility], awaiting acceptance. CM will continue to follow this patient and plan for a safe discharge.
[2023-03-03 16:33] LABS: Bedside Glucose 335 mg/dL (74-106)
[2023-03-03] MEDS: Tamsulosin HCl 0.4 MG Capsule 0.400000000000000022 MG PO (17:31)
[2023-03-03] MEDS: Atorvastatin Calcium 20 MG Tablet PO (23:06)
[2023-03-03] MEDS: Mirtazapine 15 MG Tablet 7.5 MG PO (23:06)
[2023-03-04] VITALS (11 sets, daily range): BP systolic 118–146; BP diastolic 58–81; PULSE 79–96; RESP 17–18; TEMP 36.6–36.8; O2SAT 81–99; BMI 33.5
[2023-03-04 00:14] LABS: Bedside Glucose 363 mg/dL (74-106)
[2023-03-04] MEDS: Ipratropium/Albuterol Sulfate 3 ML AMPUL.NEB INHALATION ×5 (03:28→22:43)
[2023-03-04] MEDS: guaiFENesin 10 ML UDC (200MG/10ML) PO ×4 (04:28→21:57)
[2023-03-04] MEDS: Insulin Lispro 100 UNIT/ML INSULN.PEN SC ×2 (06:42→21:56)
[2023-03-04 07:25] LABS: Bedside Glucose 424 mg/dL (74-106)
[2023-03-04 08:09] LABS: Absolute Lymphocyte Count 0.23 X10^3/uL (0.83-4.51); Absolute Neutrophil Count 5.9 X10^3/uL (2.0-7.7); Hematocrit 27.2 % (40-54); Hemoglobin 8.2 g/dL (13.0-16.5); Lymphocyte # 0.23 X10^3/ul (0.83-4.51); Lymphocyte % 3.5 % (19-41); Mean Corp Hgb Conc 30.1 g/dL (32-36); Mean Corpuscular Hgb 28.8 pg (27.0-32.0); Mean Corpuscular Volume 95.4 fL (80-94); Mean Platelet Vol. 10.7 fl (6.2-12.0); Monocyte# 0.33 X10^3/uL; Monocyte% 5.1 % (0-10); NRBC Flagged by Analyzer 0 % (0-5); Neutrophil % 90.3 % (47-70); POSITIVE DIFFERENTIAL YES; Platelet Count 218 K/mm3 (150-450); RBC Distribution Width CV 18.3 % (11.6-14.6); Red Blood Count 2.85 M/mm3 (4.6-6.2); White Blood Count 6.5 K/mm3 (4.4-11.0)
--- NOTE | 2023-03-04 08:18 | PCM.PN.HOSP ---
Reason for Visit Reason for Visit: Diagnoses Anemia, unspecified (03/03/23) Type 2 diabetes mellitus without complications (03/03/23) Hyperkalemia (03/03/23) Heart failure, unspecified (03/03/23) Chronic obstructive pulmonary disease with (acute) exacerbation (03/03/23) Dyspnea, unspecified (03/03/23) Personal history of pulmonary embolism (03/03/23) Personal history of other diseases of the respiratory system (03/03/23) Personal history of other diseases of urinary system (03/03/23) Presence of coronary angioplasty implant and graft (03/03/23) Subjective Subjective Patient responded to diuretic therapy with improvement in breathing. Currently back to his baseline with 4 L of oxygen at rest. Patient to be assessed for possible discharge Objective Data Objective Data Vital Signs: Vital Signs Temp Pulse Resp BP Pulse Ox O2 Del Method O2 Flow Rate 97.8 F 83 17 118/65 97 Nasal Cannula 4 03/04/23 05:30 03/04/23 08:13 03/04/23 08:13 03/04/23 05:30 03/04/23 08:13 03/04/23 08:13 03/04/23 05:30 Oxygen Flow Rate (L/min) 4 Oxygen Delivery Method Nasal Cannula Weight: 109.2 kg Body Mass Index (BMI) 33.5 Intake & Output: Intake and Output for Last 24 Hours 03/02/23 03/03/23 03/04/23 23:59 23:59 23:59 Intake Total 1455 / 1675 1895 / 1895 Output Total 1350 / 1700 1750 / 2900 2100 / 2100 Balance 105 / -25 145 / -1005 -2100 / -2100 Lab / Micro Data 03/04/23 07:20 03/04/23 07:20 Labs: Laboratory Results - last 24 hr 03/01/23 07:14: Diff Path Review Reviewed, Vitamin B12 551 03/03/23 06:36: B-Natriuretic Peptide 593.7 H 03/03/23 11:46: POC Glucose 347 H 03/03/23 16:04: POC Glucose 335 H 03/03/23 23:04: POC Glucose 363 H 03/04/23 06:34: POC Glucose 424 H Micro: Microbiology 03/01/23 12:45 Stool Stool Occult Blood ([facility]) - Final Occult Blood Positive 02/28/23 19:05 Mucosa - Nasopharyngeal Respiratory Panel (PCR) - Final 02/28/23 12:15 Mucosa - Nasopharyngeal SARS-CoV-2, Influenza & RSV (PCR) - Final Radiography Diagnostic Testing: Radiology Impression Chest X-Ray 03/03/23 09:26 IMPRESSION: Improving right pleural effusion and pulmonary vascular congestion. Electronically Signed: Antonio Field MD at 10:05 EST , Rhythm Strip Rhythm Strip: Sinus Rhythm Rate: 82 Ectopy: None Physical Exam Narrative GENERAL: cooperative HEENT: Atraumatic; normocephalic EYES; Anicteric, Normal Conjunctiva NECK; supple, normal thyroid, RESPIRATORY: Diminished to auscultation CARDIOVASCULAR: Regular S1 S2, GI: soft, normoactive bowel sounds, : No Renal angle tenderness; EXTREMITIES: No edema, no clubbing, MUSCULOSKELETAL: no muscle wasting NEURO: Awake; no lateralizing signs. SKIN: No Rash PSYCH; Flat affect Assessment & Plan Assessment/Plan (1) Anemia: QUALIFIERS: Anemia type: unspecified type Qualified Code(s): D64.9 - Anemia, unspecified (2) Acute hyperkalemia: (3) Acute dyspnea: PLAN: Plan Patient is a 71-year-old gentleman admitted with progressive shortness of breath and assessment of acute congestive heart failure made admitted to monitored bed for further management 1. Acute hypoxia secondary to COPD with acute exacerbation ? Patient initial viral respiratory panel came back negative. Patient managed with systemic steroid, azithromycin, supplemental oxygen as well as guaifenesin for his cough ? 03/02/2023; patient remains stable ? 03/03/2023. Plan to discharge patient home the day prior discontinued following continuous dyspnea. 2. Acute on chronic congestive heart failure with reduced ejection fraction ? 2D echo from 11/17/2022 demonstrated EF of 40%. Patient remains euvolemic ? 03/03/2023, given patient dyspnea ordered BMP patient started on Lasix ? 03/04/2023 patient responded to Lasix 3. Anemia ? Patient has microcytosis do suspect patient is anemia contributing to his significant dyspnea,. Patient hemoglobin on admission was 6.7 was transfused 1 unit PRBC. Hemoglobin came up to 7.1 and with patient deemed to be symptomatic an order was given for patient to be transfused with additional 1 unit PRBC. Subsequent monitoring with daily H&H ordered 4. Hyperkalemia ? Patient potassium level on admission was 7.0. Did receive Kayexalate and subsequently admitted to monitored bed for subsequent eval ? Patient was on lisinopril this was discontinued on discharge 5.? Chronic hypoxic respiratory failure ? Secondary to suspected pulmonary fibrosis from prior COVID-19 infection.? Patient currently on supplemental oxygen 6..? 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 Previously treated with apixaban.? Patient did not tolerate apixaban as a result of GI bleed he underwent IVC filter placement on 05/02/2021 7..? Diabetes mellitus type II Managed with diet 8.? Rheumatoid arthritis Patient previously treated with rituximab as outpatient 9.? Non Hodgkin's lymphoma ?Apparently in remission 10.? Coronary artery disease ?With previous PCI of an LAD RCA and mid circumflex lesions 11. BPH with lower urinary obstruction - Patient treated with tamsulosin 12. GERD The patient is on PPI 13. Chronic kidney disease stage IIIb ? Patient kidney function at baseline 14..? Dyslipidemia -Patient is on statin therapy, continued at home dose 15..? Hypertension - Blood pressure controlled, home medications continued with dose adjustment as needed 16. Depression ? Patient is on SSRI 17. DVT prophylaxis ? Bilateral SCD, Time spent in the patient's overall evaluation,decision-making process, review of diagnostic data, adjustment of management, discussion with other providers, nursing nursing and ancillary staff involved in patient's care documentation, 35 minutes Charges/Coding Visit Charges Inpatient E&M: 38612 Subs Hosp L2
[2023-03-04 08:19] LABS: Differential Indicated SCAN CRITERIA MET
[2023-03-04 08:41] LABS: Anion Gap 4 (5-15); BUN 56 mg/dL (7-18); BUN/Creat Ratio 31.6 RATIO (10-20); Calcium,Total 8.6 mg/dL (8.5-10.1); Chloride 106 mmol/L (98-107); Creatinine, Serum 1.77 mg/dL (0.70-1.30); EST Glomerular Filtration Rate 40 mL/min (>60); Est Glom Filt Rate - Afr Amer 49 mL/min (>60); Estimated Creatinine Clearance 39.59 ml/min; Glucose 422 mg/dL (74-106); Sodium Level 138 mmol/L (136-145)
[2023-03-04 09:08] LABS: Differential Comment SCANNED
[2023-03-04] MEDS: Ferrous Sulfate 325 MG Tablet PO (10:21)
[2023-03-04] MEDS: Finasteride 5 MG Tablet PO (10:21)
[2023-03-04] MEDS: Aspirin E.C. 81 MG Tablet PO (10:21)
[2023-03-04] MEDS: Pantoprazole Sodium 40 MG Tablet PO ×2 (10:21→21:57)
[2023-03-04] MEDS: Escitalopram Oxalate 10 MG Tablet PO (10:21)
[2023-03-04] MEDS: Furosemide 40 MG/4 ML Vial IV ×2 (10:22→17:31)
[2023-03-04] MEDS: Azithromycin 500 MG in Dextrose 5%-Water (250mL Bag) 250 ML 250 MG IV (10:41)
--- NOTE | 2023-03-04 11:38 | DS.PCM_ITS ---
Providers Date of Admission: 03/03/23 Date of Discharge: 03/04/23 Primary Care Physician: Dr. Donna Will MD Reason For Visit: ANEMIA / HYPOXIA Diagnosis Discharge Diagnosis (1) Anemia: Status: Acute Code(s): D64.9 - Anemia, unspecified Qualifiers: Anemia type: unspecified type Qualified Code(s): D64.9 - Anemia, unspecified (2) Acute hyperkalemia: Status: Acute Code(s): E87.5 - Hyperkalemia (3) Acute dyspnea: Status: Acute Code(s): R06.00 - Dyspnea, unspecified Plan Patient is a 71-year-old gentleman admitted with progressive shortness of breath and assessment of acute congestive heart failure made admitted to monitored bed for further management 1. Acute hypoxia secondary to COPD with acute exacerbation ? Patient initial viral respiratory panel came back negative. Patient managed with systemic steroid, azithromycin, supplemental oxygen as well as guaifenesin for his cough ? 03/02/2023; patient remains stable ? 03/03/2023. Plan to discharge patient home the day prior discontinued following continuous dyspnea. 2. Acute on chronic congestive heart failure with reduced ejection fraction ? 2D echo from 11/17/2022 demonstrated EF of 40%. Patient remains euvolemic ? 03/03/2023, given patient dyspnea ordered BMP patient started on Lasix ? 03/04/2023 patient responded to Lasix 3. Anemia ? Patient has microcytosis do suspect patient is anemia contributing to his significant dyspnea,. Patient hemoglobin on admission was 6.7 was transfused 1 unit PRBC. Hemoglobin came up to 7.1 and with patient deemed to be symptomatic an order was given for patient to be transfused with additional 1 unit PRBC. Rodriguez bsequent monitoring with daily H&H ordered 4. Hyperkalemia ? Patient potassium level on admission was 7.0. Did receive Kayexalate and subsequently admitted to monitored bed for subsequent eval ? Patient was on lisinopril this was discontinued on discharge 5.? Chronic hypoxic respiratory failure ? Secondary to suspected pulmonary fibrosis from prior COVID-19 infection.? Patient currently on supplemental oxygen 6..? 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 Previously treated with apixaban.? Patient did not tolerate apixaban as a result of GI bleed he underwent IVC filter placement on 05/02/2021 7..? Diabetes mellitus type II Managed with diet 8.? Rheumatoid arthritis Patient previously treated with rituximab as outpatient 9.? Non Hodgkin's lymphoma ?Apparently in remission 10.? Coronary artery disease ?With previous PCI of an LAD RCA and mid circumflex lesions 11. BPH with lower urinary obstruction - Patient treated with tamsulosin 12. GERD The patient is on PPI 13. Chronic kidney disease stage IIIb ? Patient kidney function at baseline 14..? Dyslipidemia -Patient is on statin therapy, continued at home dose 15..? Hypertension - Blood pressure controlled, home medications continued with dose adjustment as needed 16. Depression ? Patient is on SSRI 17. DVT prophylaxis ? Bilateral SCD, Time spent in the patient's overall evaluation,decision-making process, review of diagnostic data, adjustment of management, discussion with other providers, nursing nursing and ancillary staff involved in patient's care documentation, 35 minutes Medications at Discharge Home Medications nitroglycerin 0.4 mg sublingual tablet (Nitrostat) 0.4 mg sublingual Q5M PRN chest pain #30 tabs 09/25/20 atorvastatin 40 mg tablet 20 mg PO QHS cholesterol 10/09/21 aspirin 81 mg tablet,delayed release 81 mg PO DAILY 12/31/21 finasteride 5 mg tablet 5 mg PO DAILY 08/14/22 tamsulosin 0.4 mg capsule 0.4 mg PO DAILY 08/14/22 ferrous sulfate 325 mg (65 mg iron) tablet 325 mg PO DAILY iron supplement 09/13/22 multivitamin 1 tab PO DAILY 09/13/22 pantoprazole 40 mg tablet,delayed release 40 mg PO BID #180 tabs 09/23/22 escitalopram oxalate 10 mg tablet 10 mg PO DAILY mood 90 days #90 tabs 10/14/22 mirtazapine 15 mg tablet (Remeron) 7.5 mg (1/2 x 15 mg) PO QHS sleep #90 tabs 11/04/22 budesonide 1 mg/2 mL suspension for nebulization 1 mg inhalation Q12H lungs 11/15/22 albuterol sulfate 2.5 mg/3 mL (0.083 %) solution for nebulization 2.5 mg (3 mL) inhalation Q4H PRN Sob &/Or Wheezing #540 mL 01/13/23 ipratropium bromide 0.02 % solution for inhalation 2.5 ml inhalation Q6H PRN shortness of breath or wheezing #150 mL 01/13/23 azithromycin 500 mg tablet 500 mg PO DAILY 3 days #3 tabs 03/02/23 guaifenesin 1,200 mg tablet, extended release 12 hr (Mucus Relief ER) 1,200 mg PO BID 10 days #20 tabs 03/02/23 prednisone 20 mg tablet 20 mg PO BID #10 tabs 03/02/23 furosemide 40 mg tablet (Lasix) 40 mg PO DAILY #30 tabs 03/04/23 Hospital Course Summary of Care Provided Minutes Spent on Discharge: 35 Physical Exam Narrative GENERAL: cooperative HEENT: Atraumatic; normocephalic EYES; Anicteric, Normal Conjunctiva NECK; supple, normal thyroid, RESPIRATORY: Diminished to auscultation CARDIOVASCULAR: Regular S1 S2, GI: soft, normoactive bowel sounds, : No Renal angle tenderness; EXTREMITIES: No edema, no clubbing, MUSCULOSKELETAL: no muscle wasting NEURO: Awake; no lateralizing signs. SKIN: No Rash PSYCH; Flat affect Weight / BMI Weight Weight: 109.2 kg Body Mass Index (BMI) 33.5 ABG / Lab / Microbiology Data 03/04/23 07:20 03/04/23 07:20 Laboratory: Laboratory Results - last 24 hr 03/01/23 07:14: Diff Path Review Reviewed 03/03/23 11:46: POC Glucose 347 H 03/03/23 16:04: POC Glucose 335 H 03/03/23 23:04: POC Glucose 363 H 03/04/23 06:34: POC Glucose 424 H 03/04/23 07:20: WBC 6.5, RBC 2.85 L, Hgb 8.2 L, Hct 27.2 L, MCV 95.4 H, MCH 28.8, MCHC 30.1 L, RDW Std Deviation 65.0 H, RDW Coeff of Rafael 18.3 H, Plt Count 218, MPV 10.7, Immature Gran % (Auto) 1.100 H, Neut % (Auto) 90.3 H, Lymph % (Auto) 3.5 L, [place] % (Auto) 5.1, Eos % (Auto) 0.0, Baso % (Auto) 0.0, Absolute Neuts (auto) 5.9, Absolute Lymphs (auto) 0.23 L, Nucleated RBC % 0, Differential Comment SCANNED, Sodium 138, Potassium 5.0, Chloride 106, Carbon Dioxide 28.0, Anion Gap 4 L, BUN 56 H, Creatinine 1.77 H, Estim Creat Clear Calc 39.59, Est GFR (MDRD) Af Amer 49 L, Est GFR (MDRD) Non-Af 40 L, BUN/Creatinine Ratio 31.6 H , Glucose 422 H, Calcium 8.6 Microbiology: Microbiology 03/01/23 12:45 Stool Stool Occult Blood ([facility]) - Final Occult Blood Positive 02/28/23 19:05 Mucosa - Nasopharyngeal Respiratory Panel (PCR) - Final 02/28/23 12:15 Mucosa - Nasopharyngeal SARS-CoV-2, Influenza & RSV (PCR) - Final D/C Instructions Discharge Diet: Low fat / Low cholesterol and 8 Cup Fluid Restriction Call your doctor if you observe: Fever of 101 or Higher, Shortness of breath, Fainting spells and Chest pain Meaningful Use Info Meaningful Use Diagnoses (Choose all that apply): CHF CHF MEDHAT/ARB ordered at discharge?: No Reason MEDHAT/ARB not ordered?: Hyperkalemia Documented LVEF (%): 40 Discharge Plan Admission Admit Date/Time: 03/03/23 09:51 Attending Provider: Jordan Ortiz Primary Care Provider: Donna Will Consulting Providers: Mable Pritchard Discharge Orders/Prescriptions Prescriptions: New guaifenesin [Mucus Relief ER] 1,200 mg Tablet Extended Release 12hr 1,200 mg PO BID 10 Days Qty: 20 0RF prednisone 20 mg tablet 20 mg PO BID Qty: 10 0RF azithromycin 500 mg tablet 500 mg PO DAILY 3 Days Qty: 3 0RF furosemide [Lasix] 40 mg tablet 40 mg PO DAILY Qty: 30 0RF Continued nitroglycerin [Nitrostat] 0.4 mg tablet, sublingual 0.4 mg SUBLINGUAL Q5M PRN (Reason: chest pain) Qty: 30 0RF Rx Instructions: until response; do not exceed 3 doses per episode multivitamin Tablet 1 tab PO DAILY tamsulosin 0.4 mg capsule 0.4 mg PO DAILY finasteride 5 mg tablet 5 mg PO DAILY ferrous sulfate 325 mg (65 mg iron) tablet 325 mg PO DAILY atorvastatin 40 mg tablet 20 mg PO QHS aspirin 81 mg Tablet,Delayed Release (Dr/Ec) 81 mg PO DAILY budesonide 1 mg/2 mL suspension for nebulization 1 mg inhalation Q12H pantoprazole 40 mg tablet,delayed release (DR/EC) 40 mg PO BID Qty: 180 3RF escitalopram oxalate 10 mg tablet 10 mg PO DAILY 90 Days Qty: 90 3RF mirtazapine [Remeron] 15 mg tablet 7.5 mg PO QHS Qty: 90 1RF ipratropium bromide 0.02 % solution 2.5 ml inhalation Q6H PRN (Reason: shortness of breath or wheezing) Qty: 150 6RF albuterol sulfate 2.5 mg /3 mL (0.083 %) solution for nebulization 2.5 mg inhalation Q4H PRN (Reason: Sob &/Or Wheezing) Qty: 540 3RF Discontinued lisinopril 2.5 mg tablet 2.5 mg PO DAILY Qty: 90 3RF Referrals / Follow Up: Donna Will MD [Primary Care Provider] - Within 1 Week Disposition Disposition (needs filled in before D/C Order can be placed): Home, Self Care Charges/Coding Visit Charges Inpatient E&M: 34808 Disch Hosp >30min
--- NOTE | 2023-03-04 12:01 | PHA.DC_ITS ---
Pharmacy [facility] Service has performed discharge medication reconciliation and counseling for this patient. The patient's discharge medication list was reviewed for discrepancies and discrepancies were resolved. The patient was counseled on the following discharge medications and changes in medications for homegoing were reviewed. The Reason for Use, instructions for use, and potential side effects were reviewed for all new medications. The patient's questions regarding all of their medications were answered. 1. Azithromycin 500 mg PO Daily x 3 days 2. Prednisone 20 mg PO BID x 5 days 3. Guaifenesin 1200 mg PO BID x 10 days 4. Furosemide 40 mg PO daily The patient was able to verbally demonstrate an understanding of their discharge medications. Medications at Discharge Home Medications nitroglycerin 0.4 mg sublingual tablet (Nitrostat) 0.4 mg sublingual Q5M PRN chest pain #30 tabs 09/25/20 atorvastatin 40 mg tablet 20 mg PO QHS cholesterol 10/09/21 aspirin 81 mg tablet,delayed release 81 mg PO DAILY 12/31/21 finasteride 5 mg tablet 5 mg PO DAILY 08/14/22 tamsulosin 0.4 mg capsule 0.4 mg PO DAILY 08/14/22 ferrous sulfate 325 mg (65 mg iron) tablet 325 mg PO DAILY iron supplement 09/13/22 multivitamin 1 tab PO DAILY 09/13/22 pantoprazole 40 mg tablet,delayed release 40 mg PO BID #180 tabs 09/23/22 escitalopram oxalate 10 mg tablet 10 mg PO DAILY mood 90 days #90 tabs 10/14/22 mirtazapine 15 mg tablet (Remeron) 7.5 mg (1/2 x 15 mg) PO QHS sleep #90 tabs 11/04/22 budesonide 1 mg/2 mL suspension for nebulization 1 mg inhalation Q12H lungs 11/15/22 albuterol sulfate 2.5 mg/3 mL (0.083 %) solution for nebulization 2.5 mg (3 mL) inhalation Q4H PRN Sob &/Or Wheezing #540 mL 01/13/23 ipratropium bromide 0.02 % solution for inhalation 2.5 ml inhalation Q6H PRN shortness of breath or wheezing #150 mL 01/13/23 azithromycin 500 mg tablet 500 mg PO DAILY 3 days #3 tabs 03/02/23 guaifenesin 1,200 mg tablet, extended release 12 hr (Mucus Relief ER) 1,200 mg PO BID 10 days #20 tabs 03/02/23 prednisone 20 mg tablet 20 mg PO BID #10 tabs 03/02/23 furosemide 40 mg tablet (Lasix) 40 mg PO DAILY #30 tabs 03/04/23
[2023-03-04 12:42] LABS: Bedside Glucose 478 mg/dL (74-106)
[2023-03-04] MEDS: Insulin Lispro 100 UNIT/ML INSULN.PEN 20 UNIT SC (12:47)
[2023-03-04] MEDS: Tamsulosin HCl 0.4 MG Capsule 0.400000000000000022 MG PO (17:30)
[2023-03-04] MEDS: Insulin Lispro 100 UNIT/ML INSULN.PEN 16 UNIT SC (17:31)
[2023-03-04] MEDS: Insulin Glargine-YFGN 100 UNIT/ML Pen 10 UNIT SC (17:32)
[2023-03-04] MEDS: Atorvastatin Calcium 20 MG Tablet PO (21:57)
[2023-03-04] MEDS: Mirtazapine 15 MG Tablet 7.5 MG PO (21:57)
[2023-03-04 22:43] LABS: Bedside Glucose 312 mg/dL (74-106)
[2023-03-04 23:19] LABS: Bedside Glucose 467 mg/dL (74-106)
[2023-03-04 23:19] LABS: Bedside Glucose 499 mg/dL (74-106)
[2023-03-05] VITALS (11 sets, daily range): BP systolic 97–130; BP diastolic 50–72; PULSE 85–130; RESP 16–20; TEMP 36.6–36.7; O2SAT 94–97; BMI 33.5
[2023-03-05] MEDS: guaiFENesin 10 ML UDC (200MG/10ML) PO ×4 (04:23→21:26)
[2023-03-05] MEDS: Insulin Lispro 100 UNIT/ML INSULN.PEN SC ×4 (06:23→21:28)
[2023-03-05] MEDS: Ipratropium/Albuterol Sulfate 3 ML AMPUL.NEB INHALATION ×5 (07:24→23:18)
[2023-03-05 07:28] LABS: Bedside Glucose 178 mg/dL (74-106)
[2023-03-05] MEDS: 0.9% Saline Lock 10 ML Syringe IV ×2 (10:05→17:43)
[2023-03-05] MEDS: Azithromycin 500 MG in Dextrose 5%-Water (250mL Bag) 250 ML 250 MG IV (10:05)
[2023-03-05] MEDS: Aspirin E.C. 81 MG Tablet PO (10:06)
[2023-03-05] MEDS: Escitalopram Oxalate 10 MG Tablet PO (10:06)
[2023-03-05] MEDS: Ferrous Sulfate 325 MG Tablet PO (10:06)
[2023-03-05] MEDS: Pantoprazole Sodium 40 MG Tablet PO ×2 (10:06→21:26)
[2023-03-05] MEDS: Finasteride 5 MG Tablet PO (10:06)
[2023-03-05] MEDS: predniSONE 20 MG Tablet 40 MG PO (10:07)
[2023-03-05] MEDS: Furosemide 40 MG/4 ML Vial IV ×2 (10:08→17:43)
[2023-03-05] MEDS: Insulin Glargine-YFGN 100 UNIT/ML Pen 10 UNIT SC ×2 (10:08→17:42)
--- NOTE | 2023-03-05 10:12 | PCM.PN.HOSP ---
Reason for Visit Reason for Visit: Diagnoses Anemia, unspecified (03/03/23) Type 2 diabetes mellitus without complications (03/03/23) Hyperkalemia (03/03/23) Heart failure, unspecified (03/03/23) Chronic obstructive pulmonary disease with (acute) exacerbation (03/03/23) Dyspnea, unspecified (03/03/23) Personal history of pulmonary embolism (03/03/23) Personal history of other diseases of the respiratory system (03/03/23) Personal history of other diseases of urinary system (03/03/23) Presence of coronary angioplasty implant and graft (03/03/23) Subjective Subjective Patient seen tachycardic this morning with heart rate in the 130s ordered EKG. Also ordered CBC with differential as well as BMP and magnesium. If patient hemoglobin is found to be relatively low patient will be transfused with 1 unit PRBC for symptomatic anemia. Decision to discharge patient home cancelled Objective Data Objective Data Vital Signs: Vital Signs Temp Pulse Resp BP Pulse Ox O2 Del Method O2 Flow Rate 97.9 F 130 H 18 97/66 95 Nasal Cannula 4 03/05/23 10:01 03/05/23 10:01 03/05/23 10:01 03/05/23 10:01 03/05/23 10:01 03/05/23 10:01 03/05/23 10:01 Oxygen Flow Rate (L/min) [ 8 AMBULATING with Oxygen #3] Oxygen Flow Rate (L/min) [ 6 AMBULATING with Oxygen #2] Oxygen Flow Rate (L/min) [ 4 AMBULATING with Oxygen #1] Oxygen Flow Rate (L/min) [At 4 REST with Oxygen] Oxygen Flow Rate (L/min) 4 Oxygen Delivery Method Nasal Cannula Weight: 109.2 kg Body Mass Index (BMI) 33.5 Intake & Output: Intake and Output for Last 24 Hours 03/03/23 03/04/23 03/05/23 23:59 23:59 23:59 Intake Total 1895 / 1895 1435 / 1435 Output Total 1750 / 2900 4350 / 5750 1400 / 1400 Balance 145 / -1005 -2915 / -4315 -1400 / -1400 Lab / Micro Data 03/04/23 07:20 03/04/23 07:20 Labs: Laboratory Results - last 24 hr 02/28/23 16:05: Crossmatch See Detail 03/04/23 12:15: POC Glucose 478 H* 03/04/23 15:48: POC Glucose 467 H* 03/04/23 15:50: POC Glucose 499 H* 03/04/23 21:53: POC Glucose 312 H 03/05/23 06:22: POC Glucose 178 H Micro: Microbiology 03/01/23 12:45 Stool Stool Occult Blood ([facility]) - Final Occult Blood Positive 02/28/23 19:05 Mucosa - Nasopharyngeal Respiratory Panel (PCR) - Final 02/28/23 12:15 Mucosa - Nasopharyngeal SARS-CoV-2, Influenza & RSV (PCR) - Final Rhythm Strip Rhythm Strip: Sinus Rhythm Rate: 82 Ectopy: None Physical Exam Narrative GENERAL: cooperative HEENT: Atraumatic; normocephalic EYES; Anicteric, Normal Conjunctiva NECK; supple, normal thyroid, RESPIRATORY: Diminished to auscultation CARDIOVASCULAR: Regular S1 S2, tachycardic GI: soft, normoactive bowel sounds, : No Renal angle tenderness; EXTREMITIES: No edema, no clubbing, MUSCULOSKELETAL: no muscle wasting NEURO: Awake; no lateralizing signs. SKIN: No Rash PSYCH; Flat affect Assessment & Plan Assessment/Plan (1) Anemia: QUALIFIERS: Anemia type: unspecified type Qualified Code(s): D64.9 - Anemia, unspecified (2) Acute hyperkalemia: (3) Acute dyspnea: PLAN: Plan Patient is a 71-year-old gentleman admitted with progressive shortness of breath and assessment of acute congestive heart failure made admitted to monitored bed for further management 1. Acute hypoxia secondary to COPD with acute exacerbation ? Patient initial viral respiratory panel came back negative. Patient managed with systemic steroid, azithromycin, supplemental oxygen as well as guaifenesin for his cough ? 03/02/2023; patient remains stable ? 03/03/2023. Plan to discharge patient home the day prior discontinued following continuous dyspnea. 2. Acute on chronic congestive heart failure with reduced ejection fraction ? 2D echo from 11/17/2022 demonstrated EF of 40%. Patient remains euvolemic ? 03/03/2023, given patient dyspnea ordered BMP patient started on Lasix ? 03/04/2023 patient responded to Lasix 3. Anemia ? Patient has microcytosis do suspect patient is anemia contributing to his significant dyspnea,. Patient hemoglobin on admission was 6.7 was transfused 1 unit PRBC. Hemoglobin came up to 7.1 and with patient deemed to be symptomatic an order was given for patient to be transfused with additional 1 unit PRBC. Subsequent monitoring with daily H&H ordered 4. Hyperkalemia ? Patient potassium level on admission was 7.0. Did receive Kayexalate and subsequently admitted to monitored bed for subsequent eval ? Patient was on lisinopril this was discontinued on discharge 5.? Chronic hypoxic respiratory failure ? Secondary to suspected pulmonary fibrosis from prior COVID-19 infection.? Patient currently on supplemental oxygen 6..? 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 Previously treated with apixaban.? Patient did not tolerate apixaban as a result of GI bleed he underwent IVC filter placement on 05/02/2021 7.? Diabetes mellitus type II Managed with diet 8.? Rheumatoid arthritis Patient previously treated with rituximab as outpatient 9.? Non Hodgkin's lymphoma ?Apparently in remission 10.? Coronary artery disease ?With previous PCI of an LAD RCA and mid circumflex lesions 11. BPH with lower urinary obstruction - Patient treated with tamsulosin 12. GERD The patient is on PPI 13. Chronic kidney disease stage IIIb ? Patient kidney function at baseline 14..? Dyslipidemia -Patient is on statin therapy, continued at home dose 15..? Hypertension - Blood pressure controlled, home medications continued with dose adjustment as needed 16. Depression ? Patient is on SSRI 17. DVT prophylaxis ? Bilateral SCD, 18. Tachycardia ? Ordered EKG for assessment of patient underlying rhythm. Time spent in the patient's overall evaluation,decision-making process, review of diagnostic data, adjustment of management, discussion with other providers, nursing nursing and ancillary staff involved in patient's care documentation, 50 minutes Charges/Coding Visit Charges Inpatient E&M: 35731 [facility] Hosp L3
[2023-03-05 11:16] LABS: Hematocrit 31.9 % (40-54); Hemoglobin 9.9 g/dL (13.0-16.5); Mean Corpuscular Hgb 29.6 pg (27.0-32.0); Mean Corpuscular Volume 95.2 fL (80-94); Mean Platelet Vol. 10.8 fl (6.2-12.0); Platelet Count 257 K/mm3 (150-450); RBC Distribution Width CV 18.2 % (11.6-14.6); RBC Distribution Width SD 63.7 fl (35.1-43.9); Red Blood Count 3.35 M/mm3 (4.6-6.2); White Blood Count 11.9 K/mm3 (4.4-11.0)
--- NOTE | 2023-03-05 11:34 | EKG12_ITS ---
Test Reason : AFIB Blood Pressure : / mmHG Vent. Rate : 100 BPM Atrial Rate : 000 BPM P-R Int : 000 ms QRS Dur : 088 ms QT Int : 298 ms P-R-T Axes : 000 016 014 degrees QTc Int : 384 ms Atrial fibrillation Abnormal ECG When compared with ECG of 28-FEB-2023 11:58, Previous ECG has undetermined rhythm, needs review Criteria for Septal infarct are no longer Present Confirmed by IAM TEIXEIRA, HAVEN ([id number]), state editor AVINASH MARTINEZ ([id number]) on 03/07/2023 7:23:06 AM Referred By: RANDA Confirmed By:HAVEN VITALE MD
[2023-03-05 12:11] LABS: ALB/GLOB Ratio 1.1 RATIO (0.9-2.4); AST(SGOT) 9 U/L (15-37); Alanine Aminotransfer ALT/SGPT 19 U/L (16-61); Albumin, Serum 3.1 g/dL (3.2-5.0); Alkaline Phosphatase 66 U/L (45-117); Anion Gap 4 (5-15); BUN 53 mg/dL (7-18); Calcium,Total 8.9 mg/dL (8.5-10.1); Chloride 105 mmol/L (98-107); Creatinine, Serum 1.71 mg/dL (0.70-1.30); EST Glomerular Filtration Rate 42 mL/min (>60); Est Glom Filt Rate - Afr Amer 51 mL/min (>60); Estimated Creatinine Clearance 48.36 ml/min; Globulin 2.9 g/dL (2.2-4.2); Glucose 272 mg/dL (74-106); Magnesium 1.9 mg/dL (1.6-2.6); Potassium 4.5 mmol/L (3.5-5.1); Sodium Level 140 mmol/L (136-145)
[2023-03-05 12:37] LABS: Bedside Glucose 255 mg/dL (74-106)
[2023-03-05] MEDS: Metoprolol Tartrate 25 MG Tablet 12.5 MG PO ×2 (15:04→21:26)
[2023-03-05] MEDS: Tamsulosin HCl 0.4 MG Capsule 0.400000000000000022 MG PO (17:43)
[2023-03-05 18:29] LABS: Bedside Glucose 262 mg/dL (74-106)
[2023-03-05] MEDS: Atorvastatin Calcium 20 MG Tablet PO (21:26)
[2023-03-05] MEDS: Mirtazapine 15 MG Tablet 7.5 MG PO (21:26)
[2023-03-05 21:50] LABS: Bedside Glucose 265 mg/dL (74-106)
[2023-03-06] VITALS (9 sets, daily range): BP systolic 94–120; BP diastolic 52–63; PULSE 96–115; RESP 14–18; TEMP 36.6–36.7; O2SAT 87–98; BMI 33.5
[2023-03-06] MEDS: Ipratropium/Albuterol Sulfate 3 ML AMPUL.NEB INHALATION ×4 (02:40→14:11)
[2023-03-06] MEDS: Insulin Lispro 100 UNIT/ML INSULN.PEN SC ×2 (05:50→11:48)
[2023-03-06 06:09] LABS: Bedside Glucose 217 mg/dL (74-106)
--- NOTE | 2023-03-06 07:12 | EKG12_ITS ---
Test Reason : TACHY Blood Pressure : / mmHG Vent. Rate : 128 BPM Atrial Rate : 128 BPM P-R Int : 208 ms QRS Dur : 086 ms QT Int : 274 ms P-R-T Axes : 026 035 013 degrees QTc Int : 400 ms Sinus tachycardia Low voltage QRS Nonspecific T wave abnormality Abnormal ECG When compared with ECG of 28-FEB-2023 11:58, Previous ECG has undetermined rhythm, needs review Confirmed by IAM TEIXEIRA, HAVEN ([id number]), production editor AVINASH MARTINEZ ([id number]) on 03/10/2023 1:58:28 PM Referred By: GEOVANNY Confirmed By:HAVEN VITALE MD
[2023-03-06 07:53] LABS: Absolute Neutrophil Count 8.7 X10^3/uL (2.0-7.7); Basophil# 0.01 X10^3/uL; Basophil% 0.1 % (0-1); Eosinophil# 0.03 X10^3/uL; Eosinophils% 0.3 % (0-5); Hematocrit 31.3 % (40-54); Lymphocyte % 8.3 % (19-41); Mean Corp Hgb Conc 31.9 g/dL (32-36); Mean Corpuscular Hgb 29.7 pg (27.0-32.0); Mean Corpuscular Volume 92.9 fL (80-94); Mean Platelet Vol. 11.1 fl (6.2-12.0); Monocyte# 1.18 X10^3/uL; Monocyte% 10.8 % (0-10); NRBC Flagged by Analyzer 0 % (0-5); Neutrophil # 8.69 X10^3/uL (2.7-7.7); Neutrophil % 79.8 % (47-70); Platelet Count 244 K/mm3 (150-450); RBC Distribution Width SD 62.2 fl (35.1-43.9); Red Blood Count 3.37 M/mm3 (4.6-6.2); White Blood Count 10.9 K/mm3 (4.4-11.0)
[2023-03-06 08:26] LABS: Anion Gap 5 (5-15); BUN 55 mg/dL (7-18); BUN/Creat Ratio 35.9 RATIO (10-20); Calcium,Total 8.9 mg/dL (8.5-10.1); Chloride 103 mmol/L (98-107); Creatinine, Serum 1.53 mg/dL (0.70-1.30); EST Glomerular Filtration Rate 48 mL/min (>60); Est Glom Filt Rate - Afr Amer 58 mL/min (>60); Glucose 199 mg/dL (74-106); Phosphorus 2.6 mg/dL (2.5-4.9); Potassium 4.1 mmol/L (3.5-5.1); Sodium Level 142 mmol/L (136-145)
[2023-03-06] MEDS: Aspirin E.C. 81 MG Tablet PO (08:51)
[2023-03-06] MEDS: Finasteride 5 MG Tablet PO (08:51)
[2023-03-06] MEDS: predniSONE 20 MG Tablet 40 MG PO (08:51)
[2023-03-06] MEDS: Metoprolol Tartrate 25 MG Tablet 12.5 MG PO (08:52)
[2023-03-06] MEDS: Pantoprazole Sodium 40 MG Tablet PO (08:52)
[2023-03-06] MEDS: Ferrous Sulfate 325 MG Tablet PO (08:52)
[2023-03-06] MEDS: Escitalopram Oxalate 10 MG Tablet PO (08:52)
[2023-03-06] MEDS: guaiFENesin 10 ML UDC (200MG/10ML) PO (08:54)
[2023-03-06] MEDS: Furosemide 40 MG/4 ML Vial IV (08:54)
[2023-03-06] MEDS: 0.9% Saline Lock 10 ML Syringe IV (08:58)
[2023-03-06] MEDS: Insulin Glargine-YFGN 100 UNIT/ML Pen 10 UNIT SC (08:58)
--- NOTE | 2023-03-06 09:40 | PCM.PN.HOSP ---
Reason for Visit Reason for Visit: Diagnoses Anemia, unspecified (03/03/23) Type 2 diabetes mellitus without complications (03/03/23) Hyperkalemia (03/03/23) Heart failure, unspecified (03/03/23) Chronic obstructive pulmonary disease with (acute) exacerbation (03/03/23) Dyspnea, unspecified (03/03/23) Personal history of pulmonary embolism (03/03/23) Personal history of other diseases of the respiratory system (03/03/23) Personal history of other diseases of urinary system (03/03/23) Presence of coronary angioplasty implant and graft (03/03/23) Subjective Subjective Patient seen breathing remained stable however was found to be in A-fib with relatively well-controlled rate. Objective Data Objective Data Vital Signs: Vital Signs Temp Pulse Resp BP Pulse Ox O2 Del Method O2 Flow Rate 98.1 F 115 H 15 110/63 93 Nasal Cannula 4 03/06/23 08:44 03/06/23 08:52 03/06/23 08:44 03/06/23 08:52 03/06/23 08:44 03/06/23 08:44 03/06/23 08:44 Oxygen Flow Rate (L/min) [ 8 AMBULATING with Oxygen #3] Oxygen Flow Rate (L/min) [ 6 AMBULATING with Oxygen #2] Oxygen Flow Rate (L/min) [ 4 AMBULATING with Oxygen #1] Oxygen Flow Rate (L/min) [At 4 REST with Oxygen] Oxygen Flow Rate (L/min) 4 Oxygen Delivery Method Nasal Cannula Weight: 109 kg Body Mass Index (BMI) 33.5 Intake & Output: Intake and Output for Last 24 Hours 03/04/23 03/05/23 03/06/23 23:59 23:59 23:59 Intake Total 1435 / 1435 1285 / 1525 480 / 480 Output Total 4350 / 5750 3825 / 3825 1500 / 1500 Balance -2915 / -4315 -2540 / -2300 -1020 / -1020 Lab / Micro Data 03/06/23 07:05 03/06/23 07:05 Labs: Laboratory Results - last 24 hr 03/05/23 11:03: WBC 11.9 H, RBC 3.35 L, Hgb 9.9 L, Hct 31.9 L, MCV 95.2 H, MCH 29.6, MCHC 31.0 L, RDW Std Deviation 63.7 H, RDW Coeff of Rafael 18.2 H, Plt Count 257, MPV 10.8, Sodium 140, Potassium 4.5, Chloride 105, Carbon Dioxide 31.0, Anion Gap 4 L, BUN 53 H, Creatinine 1.71 H, Estim Creat Clear Calc 48.36, Est GFR (MDRD) Af Amer 51 L, Est GFR (MDRD) Non-Af 42 L, BUN/Creatinine Ratio 31.0 H, Glucose 272 H, Calcium 8.9, Magnesium 1.9, Total Bilirubin 0.50, AST 9 L, ALT 19, Alkaline Phosphatase 66, Total Protein 6.0 L, Albumin 3.1 L, Globulin 2.9, Albumin/Globulin Ratio 1.1 03/05/23 11:52: POC Glucose 255 H 03/05/23 17:40: POC Glucose 262 H 03/05/23 21:23: POC Glucose 265 H 03/06/23 05:48: POC Glucose 217 H 03/06/23 07:05: WBC 10.9, RBC 3.37 L, Hgb 10.0 L, Hct 31.3 L, MCV 92.9, MCH 29.7, MCHC 31.9 L, RDW Std Deviation 62.2 H, RDW Coeff of Rafael 18.0 H, Plt Count 244, MPV 11.1, Immature Gran % (Auto) 0.700, Neut % (Auto) 79.8 H, Lymph % (Auto) 8.3 L, [place] % (Auto) 10.8 H, Eos % (Auto) 0.3, Baso % (Auto) 0.1, Absolute Neuts (auto) 8.7 H, Absolute Lymphs (auto) 0.90, Nucleated RBC % 0, Sodium 142, Potassium 4.1, Chloride 103, Carbon Dioxide 34.0 H, Anion Gap 5, BUN 55 H, Creatinine 1.53 H, Estim Creat Clear Calc 54.00, Est GFR (MDRD) Af Amer 58 L, Est GFR (MDRD) Non-Af 48 L, BUN/Creatinine Ratio 35.9 H, Glucose 199 H, Calcium 8.9, Phosphorus 2.6 Micro: Microbiology 03/01/23 12:45 Stool Stool Occult Blood ([facility]) - Final Occult Blood Positive 02/28/23 19:05 Mucosa - Nasopharyngeal Respiratory Panel (PCR) - Final 02/28/23 12:15 Mucosa - Nasopharyngeal SARS-CoV-2, Influenza & RSV (PCR) - Final Rhythm Strip Rhythm Strip: Sinus Rhythm Rate: 82 Ectopy: None Physical Exam Narrative GENERAL: cooperative HEENT: Atraumatic; normocephalic EYES; Anicteric, Normal Conjunctiva NECK; supple, normal thyroid, RESPIRATORY: Diminished to auscultation CARDIOVASCULAR: Irregular S1 S2, tachycardic GI: soft, normoactive bowel sounds, : No Renal angle tenderness; EXTREMITIES: No edema, no clubbing, MUSCULOSKELETAL: no muscle wasting NEURO: Awake; no lateralizing signs. SKIN: No Rash PSYCH; Flat affect Assessment & Plan Assessment/Plan (1) Anemia: QUALIFIERS: Anemia type: unspecified type Qualified Code(s): D64.9 - Anemia, unspecified (2) Acute hyperkalemia: (3) Acute dyspnea: PLAN: Plan Patient is a 71-year-old gentleman admitted with progressive shortness of breath and assessment of acute congestive heart failure made admitted to monitored bed for further management 1. Acute hypoxia secondary to COPD with acute exacerbation ? Patient initial viral respiratory panel came back negative. Patient managed with systemic steroid, azithromycin, supplemental oxygen as well as guaifenesin for his cough ? 03/02/2023; patient remains stable ? 03/03/2023. Plan to discharge patient home the day prior discontinued following continuous dyspnea. 2. Acute on chronic congestive heart failure with reduced ejection fraction ? 2D echo from 11/17/2022 demonstrated EF of 40%. Patient remains euvolemic ? 03/03/2023, given patient dyspnea ordered BMP patient started on Lasix ? 03/04/2023 patient responded to Lasix 3. Anemia ? Patient has microcytosis do suspect patient is anemia contributing to his significant dyspnea,. Patient hemoglobin on admission was 6.7 was transfused 1 unit PRBC. Hemoglobin came up to 7.1 and with patient deemed to be symptomatic an order was given for patient to be transfused with additional 1 unit PRBC. Subsequent monitoring with daily H&H ordered 4. Hyperkalemia ? Patient potassium level on admission was 7.0. Did receive Kayexalate and subsequently admitted to monitored bed for subsequent eval ? Patient was on lisinopril this was discontinued on discharge 5.? Chronic hypoxic respiratory failure ? Secondary to suspected pulmonary fibrosis from prior COVID-19 infection.? Patient currently on supplemental oxygen 6..? 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 Previously treated with apixaban.? Patient did not tolerate apixaban as a result of GI bleed he underwent IVC filter placement on 05/02/2021 7.? Diabetes mellitus type II Managed with diet 8.? Rheumatoid arthritis Patient previously treated with rituximab as outpatient 9.? Non Hodgkin's lymphoma ?Apparently in remission 10.? Coronary artery disease ?With previous PCI of an LAD RCA and mid circumflex lesions 11. BPH with lower urinary obstruction - Patient treated with tamsulosin 12. GERD The patient is on PPI 13. Chronic kidney disease stage IIIb ? Patient kidney function at baseline 14..? Dyslipidemia -Patient is on statin therapy, continued at home dose 15..? Hypertension - Blood pressure controlled, home medications continued with dose adjustment as needed 16. Depression ? Patient is on SSRI 17. DVT prophylaxis ? Bilateral SCD, 18. Tachycardia ? Ordered EKG for assessment of patient underlying rhythm. 19. New onset A-fib ? Patient [id number] score was calculated to be 5 patient subsequently started on systemic anticoagulation with apixaban after discussion with him Time spent in the patient's overall evaluation,decision-making process, review of diagnostic data, adjustment of management, discussion with other providers, nursing nursing and ancillary staff involved in patient's care documentation,40 minutes Charges/Coding Visit Charges Inpatient E&M: [id number] [facility] [place] Hosp L2
[2023-03-06] MEDS: Azithromycin 500 MG in Dextrose 5%-Water (250mL Bag) 250 ML 250 MG IV (10:41)
--- NOTE | 2023-03-06 11:05 | DS.PCM_ITS ---
Providers Date of Admission: 03/03/23 Date of Discharge: 03/06/23 Primary Care Physician: Dr. Donna Will MD Reason For Visit: ANEMIA / HYPOXIA Diagnosis Discharge Diagnosis (1) Anemia: Status: Acute Code(s): D64.9 - Anemia, unspecified Qualifiers: Anemia type: unspecified type Qualified Code(s): D64.9 - Anemia, unspecified (2) Acute hyperkalemia: Status: Acute Code(s): E87.5 - Hyperkalemia (3) Acute dyspnea: Status: Acute Code(s): R06.00 - Dyspnea, unspecified Plan Patient is a 71-year-old gentleman admitted with progressive shortness of breath and assessment of acute congestive heart failure made admitted to monitored bed for further management 1. Acute hypoxia secondary to COPD with acute exacerbation ? Patient initial viral respiratory panel came back negative. Patient managed with systemic steroid, azithromycin, supplemental oxygen as well as guaifenesin for his cough ? 03/02/2023; patient remains stable ? 03/03/2023. Plan to discharge patient home the day prior discontinued following continuous dyspnea. 2. Acute on chronic congestive heart failure with reduced ejection fraction ? 2D echo from 11/17/2022 demonstrated EF of 40%. Patient remains euvolemic ? 03/03/2023, given patient dyspnea ordered BMP patient started on Lasix ? 03/04/2023 patient responded to Lasix 3. Anemia ? Patient has microcytosis do suspect patient is anemia contributing to his significant dyspnea,. Patient hemoglobin on admission was 6.7 was transfused 1 unit PRBC. Hemoglobin came up to 7.1 and with patient deemed to be symptomatic an order was given for patient to be transfused with additional 1 unit PRBC. Rodriguez bsequent monitoring with daily H&H ordered 4. Hyperkalemia ? Patient potassium level on admission was 7.0. Did receive Kayexalate and subsequently admitted to monitored bed for subsequent eval ? Patient was on lisinopril this was discontinued on discharge 5.? Chronic hypoxic respiratory failure ? Secondary to suspected pulmonary fibrosis from prior COVID-19 infection.? Patient currently on supplemental oxygen 6..? 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 Previously treated with apixaban.? Patient did not tolerate apixaban as a result of GI bleed he underwent IVC filter placement on 05/02/2021 7.? Diabetes mellitus type II Managed with diet 8.? Rheumatoid arthritis Patient previously treated with rituximab as outpatient 9.? Non Hodgkin's lymphoma ?Apparently in remission 10.? Coronary artery disease ?With previous PCI of an LAD RCA and mid circumflex lesions 11. BPH with lower urinary obstruction - Patient treated with tamsulosin 12. GERD The patient is on PPI 13. Chronic kidney disease stage IIIb ? Patient kidney function at baseline 14..? Dyslipidemia -Patient is on statin therapy, continued at home dose 15..? Hypertension - Blood pressure controlled, home medications continued with dose adjustment as needed 16. Depression ? Patient is on SSRI 17. DVT prophylaxis ? Bilateral SCD, 18. Tachycardia ? Ordered EKG for assessment of patient underlying rhythm. 19. New onset A-fib ? Patient [id number] score was calculated to be 5 patient subsequently started on systemic anticoagulation with apixaban after discussion with him Time spent in the patient's overall evaluation,decision-making process, review of diagnostic data, adjustment of management, discussion with other providers, nursing nursing and ancillary staff involved in patient's care documentation,40 minutes Medications at Discharge Home Medications nitroglycerin 0.4 mg sublingual tablet (Nitrostat) 0.4 mg sublingual Q5M PRN chest pain #30 tabs 09/25/20 atorvastatin 40 mg tablet 20 mg PO QHS cholesterol 10/09/21 aspirin 81 mg tablet,delayed release 81 mg PO DAILY 12/31/21 finasteride 5 mg tablet 5 mg PO DAILY 08/14/22 tamsulosin 0.4 mg capsule 0.4 mg PO DAILY 08/14/22 ferrous sulfate 325 mg (65 mg iron) tablet 325 mg PO DAILY iron supplement 09/13/22 multivitamin 1 tab PO DAILY 09/13/22 pantoprazole 40 mg tablet,delayed release 40 mg PO BID #180 tabs 09/23/22 escitalopram oxalate 10 mg tablet 10 mg PO DAILY mood 90 days #90 tabs 10/14/22 mirtazapine 15 mg tablet (Remeron) 7.5 mg (1/2 x 15 mg) PO QHS sleep #90 tabs 11/04/22 budesonide 1 mg/2 mL suspension for nebulization 1 mg inhalation Q12H lungs 11/15/22 albuterol sulfate 2.5 mg/3 mL (0.083 %) solution for nebulization 2.5 mg (3 mL) inhalation Q4H PRN Sob &/Or Wheezing #540 mL 01/13/23 ipratropium bromide 0.02 % solution for inhalation 2.5 ml inhalation Q6H PRN shortness of breath or wheezing #150 mL 01/13/23 azithromycin 500 mg tablet 500 mg PO DAILY 3 days #3 tabs 03/02/23 guaifenesin 1,200 mg tablet, extended release 12 hr (Mucus Relief ER) 1,200 mg PO BID 10 days #20 tabs 03/02/23 prednisone 20 mg tablet 20 mg PO BID #10 tabs 03/02/23 furosemide 40 mg tablet (Lasix) 40 mg PO DAILY #30 tabs 03/04/23 apixaban 5 mg tablet (Eliquis) 5 mg PO BID 30 days #60 tabs 03/06/23 Hospital Course Summary of Care Provided Minutes Spent on Discharge: 40 Physical Exam Narrative GENERAL: cooperative HEENT: Atraumatic; normocephalic EYES; Anicteric, Normal Conjunctiva NECK; supple, normal thyroid, RESPIRATORY: Diminished to auscultation CARDIOVASCULAR: Irregular S1 S2, tachycardic GI: soft, normoactive bowel sounds, : No Renal angle tenderness; EXTREMITIES: No edema, no clubbing, MUSCULOSKELETAL: no muscle wasting NEURO: Awake; no lateralizing signs. SKIN: No Rash PSYCH; Flat affect Weight / BMI Weight Weight: 109 kg Body Mass Index (BMI) 33.5 ABG / Lab / Microbiology Data 03/06/23 07:05 03/06/23 07:05 Laboratory: Laboratory Results - last 24 hr 03/05/23 11:03: WBC 11.9 H, RBC 3.35 L, Hgb 9.9 L, Hct 31.9 L, MCV 95.2 H, MCH 29.6, MCHC 31.0 L, RDW Std Deviation 63.7 H, RDW Coeff of Rafael 18.2 H, Plt Count 257, MPV 10.8, Sodium 140, Potassium 4.5, Chloride 105, Carbon Dioxide 31.0, Anion Gap 4 L, BUN 53 H, Creatinine 1.71 H, Estim Creat Clear Calc 48.36, Est GFR (MDRD) Af Amer 51 L, Est GFR (MDRD) Non-Af 42 L, BUN/Creatinine Ratio 31.0 H , Glucose 272 H, Calcium 8.9, Magnesium 1.9, Total Bilirubin 0.50, AST 9 L, ALT 19, Alkaline Phosphatase 66, Total Protein 6.0 L, Albumin 3.1 L, Globulin 2.9, Albumin/Globulin Ratio 1.1 03/05/23 11:52: POC Glucose 255 H 03/05/23 17:40: POC Glucose 262 H 03/05/23 21:23: POC Glucose 265 H 03/06/23 05:48: POC Glucose 217 H 03/06/23 07:05: WBC 10.9, RBC 3.37 L, Hgb 10.0 L, Hct 31.3 L, MCV 92.9, MCH 29.7, MCHC 31.9 L, RDW Std Deviation 62.2 H, RDW Coeff of Rafael 18.0 H, Plt Count 244, MPV 11.1, Immature Gran % (Auto) 0.700, Neut % (Auto) 79.8 H, Lymph % (Auto) 8.3 L, [place] % (Auto) 10.8 H, Eos % (Auto) 0.3, Baso % (Auto) 0.1, Absolute Neuts (auto) 8.7 H, Absolute Lymphs (auto) 0.90, Nucleated RBC % 0, Sodium 142, Potassium 4.1, Chloride 103, Carbon Dioxide 34.0 H, Anion Gap 5, BUN 55 H, Creatinine 1.53 H, Estim Creat Clear Calc 54.00, Est GFR (MDRD) Af Amer 58 L, Est GFR (MDRD) Non-Af 48 L, BUN/Creatinine Ratio 35.9 H, Glucose 199 H, Calcium 8.9, Phosphorus 2.6 Microbiology: Microbiology 03/01/23 12:45 Stool Stool Occult Blood ([facility]) - Final Occult Blood Positive 02/28/23 19:05 Mucosa - Nasopharyngeal Respiratory Panel (PCR) - Final 02/28/23 12:15 Mucosa - Nasopharyngeal SARS-CoV-2, Influenza & RSV (PCR) - Final D/C Instructions Discharge Diet: Low fat / Low cholesterol and 8 Cup Fluid Restriction Call your doctor if you observe: Fever of 101 or Higher, Shortness of breath, Fainting spells and Chest pain Meaningful Use Info Meaningful Use Diagnoses (Choose all that apply): CHF CHF MEDHAT/ARB ordered at discharge?: Yes Reason MEDHAT/ARB not ordered?: Hypotension and Worsening renal disease Documented LVEF (%): 40 Discharge Plan Admission Admit Date/Time: 03/03/23 09:51 Attending Provider: Jordan Ortiz Primary Care Provider: Donna Will Consulting Providers: Mable Pritchard Discharge Orders/Prescriptions Prescriptions: New guaifenesin [Mucus Relief ER] 1,200 mg Tablet Extended Release 12hr 1,200 mg PO BID 10 Days Qty: 20 0RF prednisone 20 mg tablet 20 mg PO BID Qty: 10 0RF azithromycin 500 mg tablet 500 mg PO DAILY 3 Days Qty: 3 0RF furosemide [Lasix] 40 mg tablet 40 mg PO DAILY Qty: 30 0RF Eliquis 5 mg Tablet 5 mg PO BID 30 Days Qty: 60 0RF Continued nitroglycerin [Nitrostat] 0.4 mg tablet, sublingual 0.4 mg SUBLINGUAL Q5M PRN (Reason: chest pain) Qty: 30 0RF Rx Instructions: until response; do not exceed 3 doses per episode multivitamin Tablet 1 tab PO DAILY tamsulosin 0.4 mg capsule 0.4 mg PO DAILY finasteride 5 mg tablet 5 mg PO DAILY ferrous sulfate 325 mg (65 mg iron) tablet 325 mg PO DAILY atorvastatin 40 mg tablet 20 mg PO QHS aspirin 81 mg Tablet,Delayed Release (Dr/Ec) 81 mg PO DAILY budesonide 1 mg/2 mL suspension for nebulization 1 mg inhalation Q12H pantoprazole 40 mg tablet,delayed release (DR/EC) 40 mg PO BID Qty: 180 3RF escitalopram oxalate 10 mg tablet 10 mg PO DAILY 90 Days Qty: 90 3RF mirtazapine [Remeron] 15 mg tablet 7.5 mg PO QHS Qty: 90 1RF ipratropium bromide 0.02 % solution 2.5 ml inhalation Q6H PRN (Reason: shortness of breath or wheezing) Qty: 150 6RF albuterol sulfate 2.5 mg /3 mL (0.083 %) solution for nebulization 2.5 mg inhalation Q4H PRN (Reason: Sob &/Or Wheezing) Qty: 540 3RF Discontinued lisinopril 2.5 mg tablet 2.5 mg PO DAILY Qty: 90 3RF Referrals / Follow Up: Donna Will MD [Primary Care Provider] - Within 1 Week Disposition Disposition (needs filled in before D/C Order can be placed): Home, Self Care Charges/Coding Visit Charges Inpatient E&M: 76679 Disch Hosp >30min
[2023-03-06] MEDS: APIXABAN 5 MG TABLET PO (11:49)
[2023-03-06 12:56] LABS: Bedside Glucose 325 mg/dL (74-106)
--- NOTE | 2023-03-06 14:20 | CASEMGMT ---
Patient has order for discharge. Patient is requiring increase in home oxygen, script received and sent to [facility] via [facility]. TARAH DEL RIO in to discuss needs at discharge. Patient states family to bring oxygen from home. TARAH DEL RIO updated patient that [facility] will see patient tomorrow. TARAH DEL RIO updated patient regarding Eliquis coapy of $44. Patient had no further questions or concerns at this time. CM discharge plan updated.
--- NOTE | 2023-03-06 16:36 | PHA.DC_ITS ---
Pharmacy [facility] has performed discharge medication reconciliation and counseling for this patient. 1. APIXABAN 5MG PO BID 2. AZITHROMYCIN 500MG PO DAILY X 3 DAYS 3. GUAIFENESIN 1200MG PO BID 4. FUROSEMIDE 40MG PO DAILY 5. PREDNISONE 20MG PO BID X 5 DAYS The patient's discharge medication list was reviewed for discrepancies and discrepancies were resolved. The patient was counseled on the following discharge medications and changes in medications for homegoing were reviewed. The Reason for Use, instructions for use, and potential side effects were reviewed for all new medications. The patient's questions regarding all of their medications were answered. The patient was able to verbally demonstrate an understanding of their discharge medications. Medications at Discharge Home Medications nitroglycerin 0.4 mg sublingual tablet (Nitrostat) 0.4 mg sublingual Q5M PRN chest pain #30 tabs 09/25/20 atorvastatin 40 mg tablet 20 mg PO QHS cholesterol 10/09/21 aspirin 81 mg tablet,delayed release 81 mg PO DAILY heart health 12/31/21 finasteride 5 mg tablet 5 mg PO DAILY prostate 08/14/22 tamsulosin 0.4 mg capsule 0.4 mg PO DAILY prostate 08/14/22 ferrous sulfate 325 mg (65 mg iron) tablet 325 mg PO DAILY iron supplement 09/13/22 multivitamin 1 tab PO DAILY vitamin 09/13/22 pantoprazole 40 mg tablet,delayed release 40 mg PO BID reflux #180 tabs 09/23/22 escitalopram oxalate 10 mg tablet 10 mg PO DAILY mood 90 days #90 tabs 10/14/22 mirtazapine 15 mg tablet (Remeron) 7.5 mg (1/2 x 15 mg) PO QHS sleep #90 tabs 11/04/22 budesonide 1 mg/2 mL suspension for nebulization 1 mg inhalation Q12H lungs 11/15/22 albuterol sulfate 2.5 mg/3 mL (0.083 %) solution for nebulization 2.5 mg (3 mL) inhalation Q4H PRN Sob &/Or Wheezing #540 mL 01/13/23 ipratropium bromide 0.02 % solution for inhalation 2.5 ml inhalation Q6H PRN shortness of breath or wheezing #150 mL 01/13/23 azithromycin 500 mg tablet 500 mg PO DAILY 3 days #3 tabs 03/02/23 guaifenesin 1,200 mg tablet, extended release 12 hr (Mucus Relief ER) 1,200 mg PO BID 10 days #20 tabs 03/02/23 prednisone 20 mg tablet 20 mg PO BID #10 tabs 03/02/23 furosemide 40 mg tablet (Lasix) 40 mg PO DAILY #30 tabs 03/04/23 apixaban 5 mg tablet (Eliquis) 5 mg PO BID 30 days #60 tabs 03/06/23
== END 2023-03-06 16:54 | disposition home health service (06) | DRG 291 ==
LOC: ED 15:55 → PCU 16:57
PROVIDERS: Internal Medicine; Admitting Provider Internal Medicine; Emergency Provider Emergency Medicine; PCP Internal Medicine; Visit Provider Internal Medicine
DX: I13.0 Hypertensive heart and chronic kidney disease with heart failure and stage 1 through stage 4 chronic kidney disease, or unspecified chronic kidney disease (principal); I50.23 Acute on chronic systolic (congestive) heart failure; J96.11 Chronic respiratory failure with hypoxia; J44.1 Chronic obstructive pulmonary disease with (acute) exacerbation; N13.8 Other obstructive and reflux uropathy; C85.90 Non-Hodgkin lymphoma, unspecified, unspecified site; E11.22 Type 2 diabetes mellitus with diabetic chronic kidney disease; N18.32 Chronic kidney disease, stage 3b; I48.91 Unspecified atrial fibrillation; J84.10 Pulmonary fibrosis, unspecified; M06.9 Rheumatoid arthritis, unspecified; D53.9 Nutritional anemia, unspecified; F32.A Depression, unspecified; E78.00 Pure hypercholesterolemia, unspecified; E87.5 Hyperkalemia; I25.10 Atherosclerotic heart disease of native coronary artery without angina pectoris; K21.9 Gastro-esophageal reflux disease without esophagitis; N40.1 Benign prostatic hyperplasia with lower urinary tract symptoms; U09.9 Post COVID-19 condition, unspecified; R00.0 Tachycardia, unspecified; Z79.51 Long term (current) use of inhaled steroids; Z95.5 Presence of coronary angioplasty implant and graft; Z11.2 Encounter for screening for other bacterial diseases; Z79.82 Long term (current) use of aspirin; Z99.81 Dependence on supplemental oxygen; Z87.891 Personal history of nicotine dependence
CPT/HCPCS: 36415; 71045; 80048; 80053; 82274; 82607; 82728; 82746; 82962; 83540; 83550; 83735; 83880; 84100; 84132; 84484; 85025; 85027; 86850; 86900; 86901; 86920; 86922; 87631; 87633; 93005; 94640; 94668; 97110; 97116; 97162; 97166; 97530; 97535; 99252; 99285; J7040; P9016; 90662; A4216; G0463; J0612; J1940

== ENCOUNTER 2023-03-16 13:46 | Inpatient (IN) | payer MEDICARE, SELFPAY ==
[2023-03-16] VITALS (42 sets, daily range): BP systolic 78–128; BP diastolic 37–65; PULSE 63–78; RESP 12–27; TEMP 35.8–36.6; O2SAT 90–100; BMI 30.2; BMI 29.2
--- NOTE | 2023-03-16 14:04 | RAD_ITS ---
STUDY: XR Chest 1 View 03/16/2023 2:29 PM REASON FOR EXAM: Male, 72 years old. [place] COMPARISON: 1.8.24 TECHNIQUE: XR Chest 1 View FINDINGS: Bilateral pleural effusions. There are multiple median sternotomy wires. Normal heart size. Normal mediastinum. Normal sho. Prominent appearing increased interstitial lung markings. Normal visualized pulmonary arteries. There is atherosclerotic calcification of the aortic arch with tortuosity. There are diffuse degenerative changes of the visualized thoracic spine. There is degenerative osteoarthritis of the bilateral shoulders. There are no acute findings of the upper abdomen. RAD/Chest 1 View (Portable) IMPRESSION: Pulmonary findings appear improved. Electronically Signed: Moo Yanes MD at 14:48 EST ,
--- NOTE | 2023-03-16 14:05 | CT_ITS ---
STUDY: CT BRAIN WITHOUT CONTRAST REASON FOR EXAM: Male, 72 years old. head injury Individualized dose optimization techniques were used for this CT. TECHNIQUE: Transaxial CT imaging of the brain was performed without administration of intravenous contrast material. COMPARISON: 02.14.22 FINDINGS: There are calcifications noted in the distal vertebral arteries. There are calcifications noted in the cavernous carotid arteries. This is consistent for atherosclerotic disease. Normal calvarium. Normal soft tissues. There is mild cerebral atrophy with widening of the extra-axial spaces and ventricular dilatation. There are areas of decreased attenuation within the white matter tracts of the supratentorial brain, consistent with microvascular disease changes. Normal basal ganglia and thalami. Normal brainstem. There is mild cerebellar atrophy. There is no intracranial hemorrhage. There are no findings of an acute ischemic infarction. Normal visualized paranasal sinuses. ASPECTS Score for Acute Strokes: 12/03 CT/Brain/Head without Contrast IMPRESSION: There are no acute findings. Chronic involutional changes of the brain. Electronically Signed: Moo Yanes MD at 14:43 EST Reading Location ID and State: [facility] / [place] , Service support ,
--- NOTE | 2023-03-16 14:05 | CT_ITS ---
STUDY: CT Spine Cervical W/O Contrast Injection 03/16/2023 2:45 PM REASON FOR EXAM: Male, 72 years old. NECK PAIN trauma HISTORY: NECK PAIN trauma TECHNIQUE: High resolution transaxial imaging was performed without intravenous administration of contrast material. Sagittal and coronal images were reconstructed. Individualized dose optimization techniques were used for this CT. COMPARISON: None FINDINGS: Normal craniovertebral junction. Normal anterior atlantoaxial articulation. Normal odontoid process. Normal cervical lordosis. Normal vertebral bodies and posterior osseous elements. C2-3: Normal endplates. Normal disc height and morphology. Normal central canal and intervertebral neuroforamina. C3-4: Normal endplates. Normal disc height and morphology. Normal central canal and intervertebral neuroforamina. C4-5: Normal endplates. Normal disc height and morphology. Normal central canal and intervertebral neuroforamina. C5-6: Normal endplates. Normal disc height and morphology. Normal central canal and intervertebral neuroforamina. C6-7: Loss of intervertebral disc height. There is endplate spondylosis of the vertebral body. Normal central canal and intervertebral neuroforamina. There is bilateral facet arthropathy. C7-T1: Loss of intervertebral disc height. There is endplate spondylosis of the vertebral body. Normal central canal and intervertebral neuroforamina. There is bilateral facet arthropathy. Normal visualized soft tissue structures. CT/Spine Cervical without Contras IMPRESSION: (NOT LISTED IN ORDER OF SIGNIFICANCE) There are no acute findings. Electronically Signed: Moo Yanes MD at 14:46 EST ,
--- OUTSIDE RECORDS SUMMARY | 2023-03-16 14:16 | XMS RPT_ITS | CCD ---
Author Name Unknown Address [address] [place] [address] Organization [facility] Results Test Name Value Interpretation [...] BE BASED ON THE PRIMARY CLINICAL RECORDS. [email or web address] provides no warranty or guarantee of the accuracy or completeness of information in this document.
[2023-03-16 14:20] LABS: Bedside Glucose > 500 mg/dL (74-106)
[2023-03-16 14:21] LABS: Blood Gas Specimen Type VEN; O2 Delivery Device Cannula; SITE Not entered; VBG BASE EXCESS 5 mmol/L (-1.0-3.5); VBG Bicarbonate 30 mmol/L (22-26); VBG PO2 35 mmHg (25-40); VBG SO2 65 % (50-70); VBG TCO2 31 mmol/L (23-33); VBG pCO2 49.5 mmHg (41-51); VBG pH 7.39 (7.32-7.42)
[2023-03-16 14:21] LABS: Absolute Lymphocyte Count 1.54 X10^3/uL (0.83-4.51); Absolute Neutrophil Count 17.3 X10^3/uL (2.0-7.7); Basophil# 0.04 X10^3/uL; Basophil% 0.2 % (0-1); Eosinophils% 0.5 % (0-5); Hematocrit 16.6 % (40-54); Lymphocyte # 1.54 X10^3/ul (0.83-4.51); Lymphocyte % 7.3 % (19-41); Mean Corp Hgb Conc 30.1 g/dL (32-36); Mean Corpuscular Hgb 30.1 pg (27.0-32.0); Mean Platelet Vol. 12.3 fl (6.2-12.0); Monocyte# 1.16 X10^3/uL; Monocyte% 5.5 % (0-10); NRBC Flagged by Analyzer 2.1 % (0-5); Neutrophil # 17.29 X10^3/uL (2.7-7.7); Neutrophil % 82.4 % (47-70); POSITIVE COUNT YES; POSITIVE MORPHOLOGY YES; Platelet Count 256 K/mm3 (150-450); RBC Distribution Width CV 20.1 % (11.6-14.6); RBC Distribution Width SD 63.7 fl (35.1-43.9); Red Blood Count 1.66 M/mm3 (4.6-6.2)
--- NOTE | 2023-03-16 14:32 | EDS_ITS ---
HPI History of Present Illness Chief Complaint: General Illness Informant: patient and EMS Narrative Narrative: Patient is a 72-year-old male with history of anemia, anticoagulation with Eliquis, chronic hypoxic respiratory failure on 4 L of oxygen, coronary artery disease, GI bleed, non-Hodgkin's lymphoma, COPD, CKD 3 and diabetes mellitus presenting for evaluation after fall. Apparently patient was going to the bathroom when he fell backwards and hit his head. He lives at home with his and his granddaughter. EMS was called. Patient did have some bleeding from his nose. Patient states he felt tired today but denies any other symptoms such as fever, chills, chest pain, difficulty breathing, shortness of breath, numbness or focal weakness. His chronic leg edema which is unchanged. Notes has been having black stools lately but cannot tell me for how long. Patient is concerned that his symptoms are because of his blood sugar. Notes he started taking prednisone for his lungs today. Per EMS patient's blood sugar was in the 600s. Chart review shows the patient was recently admitted 03/03 through 03/06 for anemia and hypoxia. Send also have acute hyperkalemia and hypoxia secondary to COPD exacerbation. Patient was diuresed and thought to have some fluid overload as well as he has a history of heart failure with reduced EF (EF 40% on echo from 11/17/2022). At time of admission patient's hemoglobin was 6.7 and he did receive 1 unit of packed red blood cells. He was so symptomatic so he received another unit. At time of discharge patient's hemoglobin was 10.0. [facility] Medical History Acute respiratory failure with hypoxia Allergic rhinitis Arthritis Asthma Atherosclerosis of coronary artery of [place] heart without angina pectoris Bleeding tendency Cancer Chronic bronchitis Colon polyp COPD (chronic obstructive pulmonary disease) COVID-19 in immunocompromised patient Diabetes DVT (deep venous thrombosis) (05/01/21) Essential hypertension Former smoker FTT (failure to thrive) in adult Gastritis High cholesterol History of basal cell carcinoma History of pilonidal cyst History of pulmonary embolus (PE) (04/30/21) History of stress test HTN (hypertension) Nicotine dependence, cigarettes, uncomplicated Non-Hodgkin lymphoma Obesity On home oxygen therapy Physical debility Pneumonia Positive colorectal cancer screening using Cologuard test RA (rheumatoid arthritis) Rhinovirus Tobacco abuse Type 2 diabetes mellitus Ulcer 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 complications Home Medications nitroglycerin 0.4 mg sublingual tablet (Nitrostat) 0.4 mg sublingual Q5M PRN chest pain #30 tabs 09/25/20 [Rx Last Taken Unknown] atorvastatin 40 mg tablet 20 mg PO QHS cholesterol 10/09/21 [History Last Taken 02/27/23] aspirin 81 mg tablet,delayed release 81 mg PO DAILY heart health 12/31/21 [History Last Taken 02/27/23] finasteride 5 mg tablet 5 mg PO DAILY prostate 08/14/22 [History Last Taken 02/27/23] tamsulosin 0.4 mg capsule 0.4 mg PO DAILY prostate 08/14/22 [History Last Taken 02/27/23] ferrous sulfate 325 mg (65 mg iron) tablet 325 mg PO DAILY iron supplement 09/13/22 [History Last Taken 02/27/23] multivitamin 1 tab PO DAILY vitamin 09/13/22 [History Last Taken 02/27/23] pantoprazole 40 mg tablet,delayed release 40 mg PO BID reflux #180 tabs 09/23/22 [Rx Last Taken 02/27/23] escitalopram oxalate 10 mg tablet 10 mg PO DAILY mood 90 days #90 tabs 10/14/22 [Rx Last Taken 02/27/23] mirtazapine 15 mg tablet (Remeron) 7.5 mg (1/2 x 15 mg) PO QHS sleep #90 tabs 11/04/22 [Rx Last Taken 02/27/23] budesonide 1 mg/2 mL suspension for nebulization 1 mg inhalation Q12H lungs 11/15/22 [History Last Taken 02/27/23] albuterol sulfate 2.5 mg/3 mL (0.083 %) solution for nebulization 2.5 mg (3 mL) inhalation Q4H PRN Sob &/Or Wheezing #540 mL 01/13/23 [Rx Last Taken 02/27/23] ipratropium bromide 0.02 % solution for inhalation 2.5 ml inhalation Q6H PRN shortness of breath or wheezing #150 mL 01/13/23 [Rx Last Taken 02/27/23] azithromycin 500 mg tablet 500 mg PO DAILY 3 days #3 tabs 03/02/23 [Rx Last Taken Unknown] guaifenesin 1,200 mg tablet, extended release 12 hr (Mucus Relief ER) 1,200 mg PO BID 10 days #20 tabs 03/02/23 [Rx Last Taken Unknown] prednisone 20 mg tablet 20 mg PO BID #10 tabs 03/02/23 [Rx Last Taken Unknown] furosemide 40 mg tablet (Lasix) 40 mg PO DAILY #30 tabs 03/04/23 [Rx Last Taken Unknown] apixaban 5 mg tablet (Eliquis) 5 mg PO BID 30 days #60 tabs 03/06/23 [Rx Last Taken Unknown] metoprolol tartrate 25 mg tablet 12.5 mg (1/2 x 25 mg) PO BID 60 days #60 tabs 03/06/23 [Rx Last Taken Unknown] menthol 0.44 %-zinc oxide 20.6 % topical ointment (Calmoseptine) 1 applic topical 4-6XD PRN skin irritation #113 grams 03/07/23 [Rx Last Taken Unknown] Allergy/AdvReac Type Severity Reaction Status Date / Time levofloxacin [From Levaquin] AdvReac Intermediate diarrhea, Verified 03/16/23 13:47 dizziness, GI upset, weakness Family History Father Arthritis Bleeding disorder Hypertension Kidney disease Cancer Skin Anemia blood clots Emphysema lung Mother Colon cancer Cancer Lung Cancer Diabetes Brother Thyroid disorder Surgical History H/O cardiac catheterization History of coronary artery stent placement (10/22/13) History of embolic filter insertion History of excision of pilonidal cyst History of heart artery stent History of thymectomy Hx of lymph node excision Presence of IVC filter (04/2021) Status post cardiac surgery Social History household members: spouse Smoking Status: Former smoker Tobacco: How many years used: 55 second hand exposure: Yes alcohol intake: current alcohol intake frequency: holidays/special occasions only substance use type: does not use caffeine: Yes Type: coffee Number of servings: 3 what type of physical activity do you participate in: none frequency: does not exercise seatbelt use: always ROS ROS ED Constitutional Constitutional ED: Denies chills or fever(s) Eyes Eyes: Denies blurry vision ENT ENT ED: Denies ear pain or rhinorrhea Cardiovascular Cardiovascular: Denies chest pain Respiratory/Chest Respiratory/Chest: Denies cough or dyspnea Gastrointestinal Gastrointestinal: Reports melena; Denies abdominal pain, constipation, nausea or vomiting Genitourinary Genitourinary ED: Denies dysuria Musculoskeletal Musculoskeletal: Denies arthralgias or myalgias Integumentary Denies rash Neurologic Neurologic: Reports weakness; Denies headache(s) or paresthesias Psychiatric Psychiatric: Denies anxiety Hematologic/Lymphatic Hematologic/Lymphatic: Reports easy bleeding and easy bruising EXAM Physical Exam Const Vital Signs: 03/16/23 13:48 03/16/23 13:59 03/16/23 14:40 Temperature 96.8 F L Temperature Source Temporal Pulse Rate 69 71 Respiratory Rate 13 18 Respiratory Effort Normal Non-Labored Respiratory Pattern Normal Blood Pressure 105/47 L 85/55 L Blood Pressure Mean 66 65 Pulse Ox 100 100 Oxygen Delivery Method Nasal Cannula Nasal Cannula Oxygen Flow Rate (L/min) 4 4 03/16/23 14:40 03/16/23 14:20 03/16/23 14:00 Temperature Temperature Source Pulse Rate 76 68 Respiratory Rate 20 H 16 Respiratory Effort Respiratory Pattern Blood Pressure 85/65 L 99/49 L Blood Pressure Mean 71 65 Pulse Ox 100 98 100 Oxygen Delivery Method Nasal Cannula Nasal Cannula Nasal Cannula Oxygen Flow Rate (L/min) 4 4 2 03/16/23 15:01 03/16/23 15:01 03/16/23 14:43 Temperature 98 F Temperature Source Temporal Pulse Rate 71 71 70 Respiratory Rate 18 18 15 Respiratory Effort Respiratory Pattern Blood Pressure 96/45 L 96/45 L Blood Pressure Mean 62 62 Pulse Ox 100 100 100 Oxygen Delivery Method Room Air Room Air Oxygen Flow Rate (L/min) 03/16/23 14:45 03/16/23 14:50 03/16/23 15:00 Temperature Temperature Source Pulse Rate 73 70 71 Respiratory Rate 15 19 H 22 H Respiratory Effort Respiratory Pattern Blood Pressure 96/45 L Blood Pressure Mean 60 Pulse Ox 100 Oxygen Delivery Method Oxygen Flow Rate (L/min) 03/16/23 15:10 03/16/23 15:12 Temperature Temperature Source Pulse Rate 70 70 Respiratory Rate 18 22 H Respiratory Effort Respiratory Pattern Blood Pressure 94/49 L Blood Pressure Mean 64 Pulse Ox 100 Oxygen Delivery Method Oxygen Flow Rate (L/min) Positive well nourished Constitutional Narrative: Chronically ill-appearing General Appearance ED: pallor HEENT Reports TM's clear and moist mucous membranes HEENT Narrative: Dried blood noted at the nares, no active epistaxis at this time. Negative for trauma Tympanic Membrane ED: Yes TM's clear Eyes PERRL and EOMs intact bilaterally Neck supple Chest Wall inspection of chest normal and palpation of chest normal Resp normal respiratory effort and clear to auscultation bilaterally Auscultation: Negative for rales, rhonchi or wheezes Cardio regular rate Rhythm: abnormal rhythm GI normal to inspection, nondistended, normoactive bowel sounds, non-tender and non-distended GI Narrative: Gross melena noted on rectal exam Extremity normal to inspection General Extremety ED: Yes edema; Negative for tenderness General Extremity: edema Neuro oriented x3 Neuro Narrative: No focal neurologic deficits appreciated. Speech is clear. I do not appreciate a facial droop however family is concerned for 1 Sensorium / Orientation: alert Motor Exam: general weakness Psych mental status grossly normal Skin no rashes or lesions noted Skin Narrative: There is an area of ecchymosis to the left abdominal wall, no pulsatile mass or anything or hematoma appreciated. General Skin Exam: pallor MDM MDM MDM Narrative Medical decision making narrative: Patient's for evaluated for what is like syncope, head injury on Eliquis as well as hyperglycemia. Patient not member falling exactly why he fell. Noted to have a blood sugar greater than 500 in the ER. Patient is quite pale appearing and is hypotensive upon arrival. Is given IV fluids. He does have melena on exam and concern for symptomatic anemia/GI bleed. GI note shows that patient had an EGD on 10/25/2021 which showed AVM lesion in the duodenum and red blood in the gastric fundus/cardia. He had another EGD on 12/10/2021 which showed nonbleeding gastric ulcers and 3 bleeding AVM. Capsule study in February 14 was without abnormalities. Patient's lab work is significant for leukocytosis of 21 and a hemoglobin of 5.0. This is an acute drop from 10 days ago. I suspect this is the cause of his presentation. Suspect his leukocytosis is secondary to a GI bleed as does not appear to be another obvious source of infection. Patient is hyperglycemic with a glucose of 817 however he has a normal anion gap. He does have an LUIS with a creatinine of 2.64 and an elevated BUN which is out of proportion to his LUIS of 105, again consistent with volume depletion and an upper GI bleed. Patient is on octreotide and Protonix. Patient is high since he troponin is elevated at 435 however I suspect this is type II associated with strain in 6 given I am concerned he has an active bleed I do not give him aspirin at this time. His lactate is also elevated at 4.5 but again I suspect this is hypovolemia associated with this GI bleed. Patient's blood pressure is fluid responsive however he is ordered 2 units of blood. His acetone is negative. Patient serum as molality is elevated as expected from his elevated BUN. He does not have an acidosis or anion gap and I do not suspect he is in DKA and I do not suspect he is in true HHNK. In addition he is mentating well. I do not think he needs insulin drip and blood sugar treated with IV fluids in the emergency room will be treated with subcu insulin per discussion with admitting physician and ICU. Patient does meet criteria for severe sepsis/septic shock as a do not believe his presentation is infectious and I think it is in fact secondary to hemorrhage from his GI. Blood cultures were obtained out of abundance of caution however I do not think he requires a 30 cc/kg fluid bolus in fact I think it would make him worse given his anemia (what he really needs is blood products which are ordered) and will also worsen his underlying CHF. Spoke with the hospitalist who is also in agreement of this. He is afebrile in the ER. He has been on recent steroids which also could cause a leukocytosis. Patient remitted to the ICU. Case is discussed with GI on-call, Dr. Galeana, who will see the patient on consult. He recommends octreotide drip as well as 40 mg IV Protonix twice daily. Patient agreeable plan of care. He is agreeable to blood products. CT of the brain and cervical spine negative for any acute process associate with his fall earlier today. Was possibly could have a stroke secondary to low blood state I do not think this is an acute ischemic stroke or embolic stroke (he is anticoagulated on Eliquis which likely is one of the reasons he is having bleeding issues) and he would not be TNK candidate. Do not appreciate any focal neurologic deficits and I do not think a stroke alert is indicated at this time. History & Record Review Discussion w/independent historian: EMS personnel and Patient Additional record(s) reviewed:: Prior outpatient record (See MDM and HPI) Lab Data Attestation: I reviewed the patient's lab results. Labs: Laboratory Results - last 24 hr 03/16/23 03/16/23 03/16/23 13:58 14:00 14:00 WBC 21.0 H RBC 1.66 L Hgb 5.0 L* Hct 16.6 L MCV 100.0 H MCH 30.1 MCHC 30.1 L RDW Std Deviation 63.7 H RDW Coeff of Rafael 20.1 H Plt Count 256 MPV 12.3 H Immature Gran % (Auto) 4.100 H Neut % (Auto) 82.4 H Lymph % (Auto) 7.3 L [place] % (Auto) 5.5 Eos % (Auto) 0.5 Baso % (Auto) 0.2 Absolute Neuts (auto) 17.3 H Absolute Lymphs (auto) 1.54 Nucleated RBC % 2.1 Differential Comment SCANNED Diff Path Review May foll Hypochromasia 1+ Anisocytosis 2+ Microcytosis 1+ Macrocytosis 1+ PT 18.0 H INR 1.5 APTT 24.5 Sodium 134 L Potassium 4.7 Chloride 94 L Carbon Dioxide 30.0 Anion Gap 10 BUN 105 H* Creatinine 2.64 H Estim Creat Clear Calc 29.26 Est GFR (MDRD) Af Amer 31 L Est GFR (MDRD) Non-Af 25 L BUN/Creatinine Ratio 39.8 H Glucose 817 H* Lactic Acid 4.5 H* Calcium 8.7 Total Bilirubin 0.60 AST 7 L ALT 19 Alkaline Phosphatase 61 Total Creatine Kinase 37 L Troponin I High Sens 435 H* Total Protein 5.2 L Albumin 2.8 L Globulin 2.4 Albumin/Globulin Ratio 1.2 Urine Color Urine Clarity Urine pH Ur Specific [place] Urine Protein Urine Glucose (UA) Urine Ketones Urine Occult Blood Urine Nitrite Urine Bilirubin Urine Urobilinogen Ur Leukocyte Esterase Urine RBC Urine WBC Ur Squamous Epith Cells Urine Bacteria Urine Mucus Acetone Level NEGATIVE POC Glucose > 500 H* Blood Type AB POSITIVE Antibody Screen NEGATIVE Crossmatch See Detail See Detail 03/16/23 14:40 WBC RBC Hgb Hct MCV MCH MCHC RDW Std Deviation RDW Coeff of [place] Plt Count MPV Immature Gran % (Auto) Neut % (Auto) Lymph % (Auto) [place] % (Auto) Eos % (Auto) Baso % (Auto) Absolute Neuts (auto) Absolute Lymphs (auto) Nucleated RBC % Differential Comment Diff Path Review Hypochromasia Anisocytosis Microcytosis Macrocytosis PT INR APTT Sodium Potassium Chloride Carbon Dioxide Anion Gap BUN Creatinine Estim Creat Clear Calc Est GFR (MDRD) Af Amer Est GFR (MDRD) Non-Af BUN/Creatinine Ratio Glucose Lactic Acid Calcium Total Bilirubin AST ALT Alkaline Phosphatase Total Creatine Kinase Troponin I High Sens Total Protein Albumin Globulin Albumin/Globulin Ratio Urine Color Yellow Urine Clarity Clear Urine pH 6.5 Ur Specific [place] 1.010 Urine Protein 30 H Urine Glucose (UA) 1000 H Urine Ketones Negative Urine Occult Blood 25 H Urine Nitrite Negative Urine Bilirubin Negative Urine Urobilinogen Normal Ur Leukocyte Esterase 500 H Urine RBC 0 SEEN Urine WBC 50-100 SEEN Ur Squamous Epith Cells 0-5 SEEN Urine Bacteria 0 SEEN Urine Mucus 0 SEEN Acetone Level POC Glucose Blood Type Antibody Screen Crossmatch ABG Data ABG results: ABG 03/16/23 14:18 Specimen Type JESUSITA Sample Site Not entered O2 % 4.0 VBG pH 7.39 VBG pO2 35 VBG HCO3 30 H VBG Total CO2 31 VBG O2 Sat (Calc) 65 VBG Base Excess 5 H POC Mix VBG pCO2 Pt Tmp 49.5 O2 Delivery Device Cannula Radiography Chest X-Ray - ED: 1 View, Read by ED Physician, Read by Radiologist, No Acute Disease and Right Effusion Diagnostic Testing: Clinical Impression(s) from Imaging Studies Chest X-Ray 03/16/23 14:04 IMPRESSION: Pulmonary findings appear improved. Electronically Signed: Moo Yanes MD at 14:48 EST , Brain CT 03/16/23 14:05 IMPRESSION: There are no acute findings. Chronic involutional changes of the brain. Electronically Signed: Moo Yanes MD at 14:43 EST , Cervical Spine CT 03/16/23 14:05 IMPRESSION: (NOT LISTED IN ORDER OF SIGNIFICANCE) There are no acute findings. Electronically Signed: Moo Yanes MD at 14:46 EST , Chest CT 03/16/23 15:05 IMPRESSION: Moderate right pleural effusion. Small left pleural effusion. Lower lobe bronchiectasis and a right lower lobe pneumonia. Electronically Signed: Moo Yanes MD at 16:50 EST , Rhythm Strip Rhythm Strip: A-fib Rate: 69 Ectopy: None EKG Initial EKG: Attestation: I personally reviewed and interpreted this EKG as follows: Interpretation: Atrial Fibrillation Comments: Atrial fibrillation rate of 69 bpm Normal axis Normal intervals Normal ST segments Compared to prior EKG on 03/05/23-improvement of rate but no significant change Prior EKG tracings: available for review Critical Care Time Critical Care Time: Yes Critical care time (excluding procedures): 30-74 minutes (40), Discussing w/Patient &/or Family/Internet Systems Administrator, Discussing w/Consultants and Arranging Admission or Transfer Discharge Plan Triage Chief Complaint: General Illness ED Provider: Eva Marie Dx/Rx/DC Orders Clinical Impression: Acute on chronic blood loss anemia, Acute hyperglycemia, Syncope, Acute kidney injury superimposed on CKD, Acute upper GI bleed Primary Care Provider: Donna Will Disposition Disposition: Acute Care Hospital [facility] Discharge Date/Time: 03/16/23 17:40
[2023-03-16 14:35] LABS: Differential Indicated SCAN CRITERIA MET
[2023-03-16 14:45] LABS: Bacteria 0 SEEN /hpf (None Seen); Mucous, Urine 0 SEEN /hpf (<or=2+); Red Blood Cells-Urine 0 SEEN /hpf (0-5)
[2023-03-16 14:45] LABS: International Normalized Ratio 1.5
[2023-03-16 14:46] LABS: Partial Thromboplast Time 24.5 Seconds (24.1-36.2)
[2023-03-16 14:48] LABS: Anisocytosis 2+; Differential Comment SCANNED; Hypochromasia 1+; Macrocytosis 1+; Microcytosis 1+
--- NOTE | 2023-03-16 14:49 | PCM.HP.STD ---
HPI - General General Date of Admission: 03/16/23 Date of Service: 03/16/23 Chief Complaint: Fall/Fatigue/Hypotension/Hyperglycemia HPI Narrative SAL ALONZO, is a 72 M who presented to the emergency department at [facility] on 03/16/2023 after a fall at home. Evidently, he was going to the bathroom and fell backwards and hit his head. He lives at home with his and granddaughter. After the fall EMS was called as the patient is chronically anticoagulated on apixaban. He did have some bleeding from his nose at that time and indicates he is felt tired today but denied any fever, chills, chest pain, shortness of breath, cough or numbness/tingling/focal weakness. He has chronic lower extremity edema that is unchanged from his baseline. He does indicate he has have been having black tarry stools for some time but is unclear how long he has been having these. His blood sugars have been markedly elevated at home and upon EMS arrival his blood sugar was in the 600. He is on prednisone for his lungs. He was concerned that all of his symptoms were related to his blood sugar. He did have a recent admission here from 03/03/2023 through 03/06/2023 for anemia and hypoxemia. He was treated for acute exacerbation of COPD and diuresed as there was felt to be a component of acute on chronic HFrEF. He was noted to have a hemoglobin of 6.7 on presentation and received initially 1 unit of packed red blood cells he remained short of breath so another unit was given prior to discharge. Hemoglobin at the time of discharge was 10. Hemoccult was done at that time and was found to be positive. The patient does have previous history of GI bleed and also follows as an outpatient with hematology and receives iron infusions. 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 Capsule endoscopy was also done at the end of 2021 in December and was found to be negative. He has had previous issues with hematuria and follows with urology but is not currently having any hematuria. He had a recurrent fecal occult blood that was positive in July 2022 and had a capsule endoscopy at that time which showed some erosions and was treated with packed red blood cells and received Venofer infusions. The patient is on chronic oxygen and wears 4 L at baseline. On presentation, his temperature was 96.8, heart rate 69, blood pressures have been anywhere from 85-105 systolic over 47-65 diastolic, respiratory rate is 13 and oxygen saturations are 98 to 100% on 4 L nasal cannula. His CBC shows a leukocytosis however he is taking prednisone. His white count is 21,000 and he has a marked left shift with a 82.4% neutrophilia. His hemoglobin is 5.0 and platelet count is normal. Coags are elevated mildly as expected on Eliquis. VBG shows no signs of acidosis. His chemistry panel shows a sodium of 134 with a BUN of 105 and a serum creatinine of 2.64 (baseline BUN has been in the 40-50 range/serum creatinine baseline has been running between 1.5 and 1.8). His lactic acid was 4.5. His glucose was 817. Liver functions are unremarkable. Troponin is 435. With his fall, extensive imaging was performed. Chest x-ray was unremarkable for any acute findings however he does appear to have a chronic right-sided pleural effusion. CT of the brain showed chronic involutional changes but no acute findings. CT of the cervical spine was unremarkable for any acute findings. EKG showed rate controlled atrial fibrillation at a rate of 69 bpm with normal axis, normal intervals and no ST-T wave changes concerning for acute ischemia. Given his lactic acidosis and white count elevation cultures were done. With regards to his anemia he was started on an octreotide drip and a Protonix bolus 80mg x 1 dose. 2 units of packed red blood cells have been ordered to be transfused and he will be admitted to the ICU for further care. FOR[facility]LY [facility] Medical History Acute respiratory failure with hypoxia Allergic rhinitis Arthritis Asthma Atherosclerosis of coronary artery of [place] heart without angina pectoris Bleeding tendency Cancer Chronic bronchitis Colon polyp COPD (chronic obstructive pulmonary disease) COVID-19 in immunocompromised patient Diabetes DVT (deep venous thrombosis) (05/01/21) Essential hypertension Former smoker FTT (failure to thrive) in adult Gastritis High cholesterol History of basal cell carcinoma History of pilonidal cyst History of pulmonary embolus (PE) (04/30/21) History of stress test HTN (hypertension) Nicotine dependence, cigarettes, uncomplicated Non-Hodgkin lymphoma Obesity On home oxygen therapy Physical debility Pneumonia Positive colorectal cancer screening using Cologuard test RA (rheumatoid arthritis) Rhinovirus Tobacco abuse Type 2 diabetes mellitus Ulcer 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 complications Home Medications nitroglycerin 0.4 mg sublingual tablet (Nitrostat) 0.4 mg sublingual Q5M PRN chest pain #30 tabs 09/25/20 [Rx Last Taken Unknown] atorvastatin 40 mg tablet 20 mg PO QHS cholesterol 10/09/21 [History Last Taken 02/27/23] aspirin 81 mg tablet,delayed release 81 mg PO DAILY heart health 12/31/21 [History Last Taken 02/27/23] finasteride 5 mg tablet 5 mg PO DAILY prostate 08/14/22 [History Last Taken 02/27/23] tamsulosin 0.4 mg capsule 0.4 mg PO DAILY prostate 08/14/22 [History Last Taken 02/27/23] ferrous sulfate 325 mg (65 mg iron) tablet 325 mg PO DAILY iron supplement 09/13/22 [History Last Taken 02/27/23] multivitamin 1 tab PO DAILY vitamin 09/13/22 [History Last Taken 02/27/23] pantoprazole 40 mg tablet,delayed release 40 mg PO BID reflux #180 tabs 09/23/22 [Rx Last Taken 02/27/23] escitalopram oxalate 10 mg tablet 10 mg PO DAILY mood 90 days #90 tabs 10/14/22 [Rx Last Taken 02/27/23] mirtazapine 15 mg tablet (Remeron) 7.5 mg (1/2 x 15 mg) PO QHS sleep #90 tabs 11/04/22 [Rx Last Taken 02/27/23] budesonide 1 mg/2 mL suspension for nebulization 1 mg inhalation Q12H lungs 11/15/22 [History Last Taken 02/27/23] albuterol sulfate 2.5 mg/3 mL (0.083 %) solution for nebulization 2.5 mg (3 mL) inhalation Q4H PRN Sob &/Or Wheezing #540 mL 01/13/23 [Rx Last Taken 02/27/23] ipratropium bromide 0.02 % solution for inhalation 2.5 ml inhalation Q6H PRN shortness of breath or wheezing #150 mL 01/13/23 [Rx Last Taken 02/27/23] azithromycin 500 mg tablet 500 mg PO DAILY 3 days #3 tabs 03/02/23 [Rx Last Taken Unknown] guaifenesin 1,200 mg tablet, extended release 12 hr (Mucus Relief ER) 1,200 mg PO BID 10 days #20 tabs 03/02/23 [Rx Last Taken Unknown] prednisone 20 mg tablet 20 mg PO BID #10 tabs 03/02/23 [Rx Last Taken Unknown] furosemide 40 mg tablet (Lasix) 40 mg PO DAILY #30 tabs 03/04/23 [Rx Last Taken Unknown] apixaban 5 mg tablet (Eliquis) 5 mg PO BID 30 days #60 tabs 03/06/23 [Rx Last Taken Unknown] metoprolol tartrate 25 mg tablet 12.5 mg (1/2 x 25 mg) PO BID 60 days #60 tabs 03/06/23 [Rx Last Taken Unknown] menthol 0.44 %-zinc oxide 20.6 % topical ointment (Calmoseptine) 1 applic topical 4-6XD PRN skin irritation #113 grams 03/07/23 [Rx Last Taken Unknown] Allergy/AdvReac Type Severity Reaction Status Date / Time levofloxacin [From Levaquin] AdvReac Intermediate diarrhea, Verified 03/16/23 13:47 dizziness, GI upset, weakness Family History Father Arthritis Bleeding disorder Hypertension Kidney disease Cancer Skin Anemia blood clots Emphysema lung Mother Colon cancer Cancer Lung Cancer Diabetes Brother Thyroid disorder Surgical History H/O cardiac catheterization History of coronary artery stent placement (10/22/13) History of embolic filter insertion History of excision of pilonidal cyst History of heart artery stent History of thymectomy Hx of lymph node excision Presence of IVC filter (04/2021) Status post cardiac surgery Social History household members: spouse Smoking Status: Former smoker Tobacco: How many years used: 55 second hand exposure: Yes alcohol intake: current alcohol intake frequency: holidays/special occasions only substance use type: does not use caffeine: Yes Type: coffee Number of servings: 3 what type of physical activity do you participate in: none frequency: does not exercise seatbelt use: always ROS Constitutional Constitutional: Reports fatigue, malaise and weakness; Denies anorexia, change in weight, chills, fever(s), night sweats or other Eyes Eyes: Denies blurry vision, change in eye color, change in vision, discharge from eye(s), double vision, erythema, eye pain, loss of vision or other ENT HEENT: Denies abnormal hearing, dysphagia, ear pain, epistaxis, headache(s), hearing loss, nasal congestion, nasal discharge, post nasal drip, sinus pressure, sore throat or other Cardiovascular Cardiovascular: Reports edema and lightheadedness; Denies chest pain, claudication, dyspnea on exertion, orthopnea, palpitations, paroxysmal nocturnal dyspnea, rapid heart rate, syncope or other Respiratory/Chest Respiratory/Chest: Reports dyspnea and shortness of breath with exertion; Denies cough, excessive phlegm production, hemoptysis, productive cough, shortness of breath at rest, wheezing or other Gastrointestinal Gastrointestinal: Reports melena; Denies abdominal pain, coffee ground emesis, constipation, diarrhea, dyspepsia, hematemesis, hematochezia, loose stools, nausea, vomiting or other Genitourinary Genitourinary: Denies burning urination, difficulty urinating, dysuria, hematuria, nocturia, urinary frequency, urinary hesitancy, urinary incontinence, urinary urgency or other Musculoskeletal Musculoskeletal: Denies arthralgias, back pain, joint pain, joint stiffness, joint swelling, myalgias, neck pain or other Neurologic Neurologic: Reports abnormal gait and other Details: Fall Psychiatric Psychiatric: Reports depression; Denies anxiety, homicidal ideation, suicidal ideation or other Endocrine Endocrinology: Reports polydipsia, polyuria and other Details: Elevated blood sugars ; Denies change in body appearance, cold intolerance, excessive sweating or heat intolerance Hematologic/Lymphatic Hematologic/Lymphatic: Reports anemia, easy bleeding and easy bruising Allergic/Immunologic Allergic/Immunologic: Denies rhinitis, hives, eczemia, asthma or other Vital Signs Vital Signs Vital Signs: 03/16/23 13:48 03/16/23 13:59 03/16/23 14:40 Temperature 96.8 F L Temperature Source Temporal Pulse Rate 69 71 Respiratory Rate 13 18 Respiratory Effort Normal Non-Labored Respiratory Pattern Normal Blood Pressure 105/47 L 85/55 L Blood Pressure Mean 66 65 Pulse Ox 100 100 Oxygen Delivery Method Nasal Cannula Nasal Cannula Oxygen Flow Rate (L/min) 4 4 03/16/23 14:40 03/16/23 14:20 03/16/23 14:00 Temperature Temperature Source Pulse Rate 76 68 Respiratory Rate 20 H 16 Respiratory Effort Respiratory Pattern Blood Pressure 85/65 L 99/49 L Blood Pressure Mean 71 65 Pulse Ox 100 98 100 Oxygen Delivery Method Nasal Cannula Nasal Cannula Nasal Cannula Oxygen Flow Rate (L/min) 4 4 2 Weight Weight: 98 kg Body Mass Index (BMI) 30.2 Physical Exam Const alert, oriented x3 and no apparent distress; Negative for average body habitus, healthy appearing or well nourished Constitutional Narrative: Obese, chronically ill-appearing, older, white male, lying in bed, daughter at bedside, patient appears comfortable on 4 L nasal cannula which is his baseline, nontoxic but ill-appearing HEENT normocephalic and head/scalp atraumatic HEENT Narrative: Mild to moderate hearing loss, mucous membranes are dry, no thrush, Mallampati 2-3 Eyes PERRL and EOMs intact bilaterally Eyes Narrative: Severe conjunctival pallor bilaterally, no scleral icterus Neck no lymphadenopathy and supple Neck Narrative: Trachea midline, no thyroid enlargement Resp normal respiratory effort, no retractions and no use of accessory muscles Resp Narrative: Diffusely diminished with decreased breath sounds at right base Auscultation: Negative for rales, rhonchi or wheezes Cardio regular rate, S1 normal heart sound, S2 normal heart sound, no rub, no gallops and no clicks; Negative for regular rhythm or no murmurs Cardio Narrative: Irregularly irregular rhythm, 2 out of 6 systolic murmur GI normal to inspection, nondistended, normoactive bowel sounds, soft to palpation and non-tender Extremity Extremity Narrative: 1-2+ bilateral lower extremity pitting edema which is chronic, no cyanosis or clubbing Skin no rashes or lesions noted, no wounds, no jaundice, no petechiae and no mottling Skin Narrative: Skin is extremely pale, palmar creases are pale, no significant wounds noted Neuro oriented x3, moves all extremities and no focal motor deficits Neuro Narrative: Significant generalized weakness noted with no focal deficits Speech: speech normal Psych Psych Narrative: Affect is flattened mood seems depressed Results Lab / Micro Data 03/16/23 14:00 03/16/23 14:00 Labs: Laboratory Results - last 24 hr 03/16/23 13:58: POC Glucose > 500 H* 03/16/23 14:00: WBC 21.0 H, RBC 1.66 L, Hgb 5.0 L*, Hct 16.6 L, MCV 100.0 H, MCH 30.1, MCHC 30.1 L, RDW Std Deviation 63.7 H, RDW Coeff of Rafael 20.1 H, Plt Count 256, MPV 12.3 H, Immature Gran % (Auto) 4.100 H, Neut % (Auto) 82.4 H, Lymph % (Auto) 7.3 L, Towns % (Auto) 5.5, Eos % (Auto) 0.5, Baso % (Auto) 0.2, Absolute Neuts (auto) 17.3 H, Absolute Lymphs (auto) 1.54, Nucleated RBC % 2.1, Differential Comment SCANNED, Diff Path Review May foll, Hypochromasia 1+, Anisocytosis 2+, Microcytosis 1+, Macrocytosis 1+, PT 18.0 H, INR 1.5, APTT 24.5, Acetone Level NEGATIVE ABG Data ABG results: ABG 03/16/23 14:18 Specimen Type JESUSITA Sample Site Not entered O2 % 4.0 VBG pH 7.39 VBG pO2 35 VBG HCO3 30 H VBG Total CO2 31 VBG O2 Sat (Calc) 65 VBG Base Excess 5 H POC Mix VBG pCO2 Pt Tmp 49.5 O2 Delivery Device Cannula Rhythm Strip Rhythm Strip: A-fib Rate: 69 Ectopy: None Imagaing Radiology Impression Brain CT 03/16/23 14:05 IMPRESSION: There are no acute findings. Chronic involutional changes of the brain. Electronically Signed: Moo Yanes MD at 14:43 EST , Cervical Spine CT 03/16/23 14:05 IMPRESSION: (NOT LISTED IN ORDER OF SIGNIFICANCE) There are no acute findings. Electronically Signed: Moo Yanes MD at 14:46 EST , Assessment & Plan Assessment/Plan (1) Acute anemia: (2) Hypotension: (3) Fall: (4) Fatigue: (5) Hyperglycemia: (6) Pleural effusion on right: (7) LUIS (acute kidney injury): (8) Hemorrhagic shock: (9) Acute lactic acidosis: (10) Leukocytosis: (11) Elevated troponin I level: PLAN: Plan Acute hemorrhagic shock -This is the cause of his hypotension -Hemoglobin is 5.0 -Will transfuse 3 units packed red blood cells -IV fluids running until packed red blood cells but can be given -If pressure does not improve may need pressors -May need central line depending on IV access -Hold home medications that can drop blood pressure Acute on chronic anemia -Baseline hemoglobin appears to run between 7.0 and 8.0 -Recent admission 03/03/2023 through 03/06/2023 had 2 units of packed red blood cells and hemoglobin was 10.0 on discharge -Hemoglobin down to 5.0 today -Transfused 3 units packed red blood cells -Monitor for Lasix needed between due to history of HFrEF -Cycle hemoglobin every 6 hours x 3 -Repeat CBC in a.m. -Transfuse for precipitous drop or hemoglobin less than 7 -Patient is on iron at baseline and follows as an outpatient with hematology Acute GI bleed -Patient with grossly bloody stools -Cycle hemoglobin as noted above -Transfuse 3 units packed red blood cells -Octreotide drip -Protonix IV push 40 mg twice daily -Hold home Eliquis -Hold home aspirin -GI consultation is pending-initiated by emergency department and case was discussed with Friend by Dr. Marie Lactic acidosis -Sec to the above -Should improve with blood transfusion -Cycle per protocol -No metabolic acidosis noted on VBG but lactate is up at 4.5 Troponin elevation -Troponin elevation at greater than 400 on admission -Suspect type II NSTEMI due to demand ischemia with severe anemia -Check echocardiogram for any signs of wall motion -Patient is not a cardiac catheterization candidate at this point due to his GI bleeding -Cycle cardiac enzymes LUIS on CKD stage IIIb -Baseline serum creatinine is between 1.5 and 1.8 -Current serum creatinine is 2.64 -Suspect related to hypotension and acute blood loss -Hold diuretics -Blood transfusion as ordered -Continue IV fluids until blood can be initiated -Hold home Flomax -Place Ball -No further workup at this time however if creatinine does not improve with transfusion may need to pursue further workup and possible nephrology consultation DM-2 with hyperglycemia -Patient severely hyperglycemic on admission -Obtaining a hemoglobin A1c would be futile due to his severe anemia and transfusion being initiated -Blood sugars have been up and patient has been on steroids lately -Will give NPH 15 units x 1 dose -Start Lantus at nightly 15 units -High-dose SSI every 6 hours and hold off scheduled log at this time to see what blood sugars and see what blood sugars run with basal insulin and sliding scale -Clear liquid diet for tonight and n.p.o. after midnight -When oral diet can be reinitiated would recommend cardiac/carb control at 1800 kcal Right pleural effusion -Appears to be quite large on chest x-ray -CT chest pending -Will obtain thoracentesis if patient agreeable and effusion seems sizable when compared to previous imaging -If Thora needed will send studies on fluid Leukocytosis -Suspect reactive from steroid use and acute GI bleed -Patient with no signs of infection currently -Continue to monitor -Cultures were obtained drawn on admission but hold off on empiric antibiotics for now as infectious etiology is low suspicion Debility/fall/generalized weakness/fatigue -Acute issues likely related to acute anemia and hypotension -PT/OT consultation -Social work/case management consultation for assistance with discharge planning -Imaging done for fall shows no fracture or acute findings on presentation Chronic hypoxic respiratory failure secondary to COPD -Patient's baseline oxygen is 4 L nasal cannula -Remains on 4 L nasal cannula with good oxygen saturations -Chest x-ray is stable -Continue as needed albuterol -Continued inhaled budesonide -Hold Lasix for now -Continue home guaifenesin -Continue home ipratropium as needed History of GI bleed/GERD -Hold home oral Protonix -IV Protonix -Previous scope in 2021 showed angiodysplastic lesions in the stomach and duodenum -Patient also has previously had a positive capsule endoscopy CAD/HTN/HPL -Patient with previous PCI to LAD and RCA as well as mid circumflex lesions remotely -Hold home antihypertensives due to hypotension on presentation -Hold home aspirin due to GI bleed -Okay to continue atorvastatin BPH with obstruction -Continue Proscar -Hold Flomax due to this potentially causing blood pressure drops to be alpha blockade History of VTE/PE -Patient had been off anticoagulation but this was restarted after last discharge -Patient does have an IVC filter that was placed in 2001 -NATUROPATHIC DOCTOR was diagnosed when patient had COVID-19 infection Atrial fibrillation -Was diagnosed as new during last hospitalization -Currently in rate controlled atrial fibrillation -Hold home metoprolol for now due to severe hypotension on presentation -Will restart if blood pressure improves with blood -Discontinue apixaban that was started -patient has now proven that he cannot be on anticoagulation and will discontinue Eliquis indefinitely -Monitor on telemetry History of Hodgkin lymphoma status post ABVD and radiation 2000 -Remote -No current issues -Follows as outpatient with oncology History of rheumatoid arthritis -Patient was previously treated with Biologics however is not currently on any -Continue outpatient follow-up Depression -Continue home mirtazapine -Continue home Lexapro DVT prophylaxis -SCDs -Chemoprophylaxis contraindicated due to GI bleeding and severe anemia on presentation CODE STATUS -Full code as per discussion prior to admission with patient and family however son is going to arrive soon and they will have further discussion so CODE STATUS could potentially change within the next 24 hours. Critical care time greater than 35 minutes excluding procedures Charges/Coding Procedures Hospitalists Procedures: 44190 Critical Care 1st Hr
[2023-03-16 14:55] LABS: ALB/GLOB Ratio 1.2 RATIO (0.9-2.4); AST(SGOT) 7 U/L (15-37); Alanine Aminotransfer ALT/SGPT 19 U/L (16-61); Albumin, Serum 2.8 g/dL (3.2-5.0); Alkaline Phosphatase 61 U/L (45-117); Anion Gap 10 (5-15); BUN 105 mg/dL (7-18); BUN/Creat Ratio 39.8 RATIO (10-20); CPK Total, Creatine Kinase 37 U/L (39-308); Calcium,Total 8.7 mg/dL (8.5-10.1); Chloride 94 mmol/L (98-107); Creatinine, Serum 2.64 mg/dL (0.70-1.30); EST Glomerular Filtration Rate 25 mL/min (>60); Est Glom Filt Rate - Afr Amer 31 mL/min (>60); Estimated Creatinine Clearance 29.26 ml/min; Globulin 2.4 g/dL (2.2-4.2); Glucose 817 mg/dL (74-106); Potassium 4.7 mmol/L (3.5-5.1); Protein, Total 5.2 g/dL (6.4-8.2); Sodium Level 134 mmol/L (136-145); Troponin-I HS 435 pg/mL (3.0-78.0)
[2023-03-16 14:56] LABS: Lactic Acid 4.5 mmol/L (0.4-1.9)
[2023-03-16 14:58] LABS: Color, Urine Yellow (Yellow); Glucose, Dipstick 1000 mg/dl (Normal); Ketone-Dipstick Negative (Negative); Leukocyte Esterase-Dipstick 500 /ul (Negative); Nitrite-Dipstick Negative (Negative); Occult Blood-Urine 25 /ul (Negative); Protein-Dipstick 30 mg/dl (Negative); Urine Bilirubin Dipstick Negative (Negative); Urine Clarity Clear (Clear); Urine Urobilinogen Normal (Normal); Urine pH 6.5 (5.0 - 8.0)
--- NOTE | 2023-03-16 15:05 | CT_ITS ---
STUDY: CT Chest W/O Contrast Injection 03/16/2023 4:47 PM REASON FOR EXAM: Male, 72 years old. R effusion Individualized dose optimization techniques were used for this CT. TECHNIQUE: Transaxial imaging was performed without contrast material. COMPARISON: 01.25.23 FINDINGS: There are degenerative changes of the shoulders. There is no pneumothorax. Moderate right pleural effusion. Small left pleural effusion. Lower lobe bronchiectasis and a right lower lobe pneumonia. There are multiple median sternotomy wires. There are calcifications of the coronary arteries. Normal mediastinum. Normal hilar regions. Normal pulmonary arteries. There is atherosclerotic calcification of the aortic arch with tortuosity and elongation of the aortic arch and descending thoracic aorta. There are multi-level degenerative changes of the thoracic spine. There is hypodensities of the right kidney. These are consistent for cysts. No follow up required. CT/Chest without Contrast IMPRESSION: Moderate right pleural effusion. Small left pleural effusion. Lower lobe bronchiectasis and a right lower lobe pneumonia. Electronically Signed: Moo Yanes MD at 16:50 EST ,
[2023-03-16 15:13] LABS: White Blood Cells 50-100 SEEN /hpf (0-5)
[2023-03-16 15:14] LABS: Squamous Epithelial Cells - UA 0-5 SEEN /hpf (0-5)
--- NOTE | 2023-03-16 15:16 | ED.RN ---
DR AWARE OF SEPSIS ALERT.FLUID RESUSCITATION IS NOT IN INDICATED
--- NOTE | 2023-03-16 15:24 | ECHOCS_ITS ---
Reason For Study: Elevated Troponins Procedure This was a 2D Doppler, Color Flow transthoracic echocardiogram. The study was technically difficult. Contrast injection was performed. Exam performed portable in ICU/CCU. Left Ventricle Normal LV size. The left ventricular ejection fraction is 35 %. There is moderate global hypokinesis of the left ventricle. Right Ventricle Normal RV size. Normal systolic function. Atria The left atrium is mildly enlarged. Normal right atrium. Mitral Valve Normal mitral valve. Tricuspid Valve Normal tricuspid valve. Aortic Valve Trisinus/trileaflet aortic valve. Pulmonic Valve The pulmonic valve is not well visualized. Great Vessels Normal aortic root. The pulmonary artery is normal size. Pericardium/Pleural No pericardial effusion. Medication Diluted definity 3.5ml given slow IV push to enhance endocardial definition. MMode/2D Measurements & Calculations LVIDd: 5.7 cm IVSd: 0.97 cm LA dimension: 3.9 cm LVIDs: 4.7 cm LVPWd: 1.3 cm RVDd: 3.3 cm FS: 17.6 % LAV(MOD-bp): 76.1 ml LVAd ap4: 40.6 cm2 LVAd ap2: 40.6 cm2 LAV(MOD-bp) Indexed: 35.8 ml/m2 LVLd ap4: 8.8 cm LVLd ap2: 9.3 cm LAV(MOD-sp2): 65.8 ml EDV(MOD-sp4): 162.3 ml EDV(MOD-sp2): 152.9 ml LAV(MOD-sp4): 69.6 ml EDV(sp4-el): 159.9 ml EDV(sp2-el): 150.7 ml LVAs ap4: 33.1 cm2 LVAs ap2: 32.0 cm2 LVLs ap4: 9.1 cm LVLs ap2: 8.0 cm ESV(MOD-sp4): 101.7 ml ESV(MOD-sp2): 104.4 ml ESV(sp4-el): 101.6 ml ESV(sp2-el): 108.4 ml EF(MOD-sp4): 37.3 % EF(MOD-sp2): 31.7 % EF(sp4-el): 36.4 % SV(MOD-sp4): 60.6 ml SV(MOD-sp2): 48.5 ml SV(sp4-el): 58.3 ml LA A4 area: 22.7 cm2 RA A4 area: 16.0 cm2 Doppler Measurements & Calculations MV E max luis enrique: 129.3 cm/sec Ao V2 max: 97.8 cm/sec LV V1 max: 75.2 cm/sec Ao max P.9 mmHg LV V1 max P.4 mmHg PA V2 max: 118.1 cm/sec ECHO/Echo Complete W/ Contrast Interpretation Summary Normal LV size. The left ventricular ejection fraction is 35 %. There is moderate global hypokinesis of the left ventricle. Contrast injection was performed. Ordering Physician: Nadira Ricks Referring Physician: Donna Will M.D. Performed By: Nathan Correa RCS
--- NOTE | 2023-03-16 15:31 | ED.RN ---
IV ATTEMPTED IN LEFT FA BY THIS NURSE. UNSUCCESSFUL
--- OUTSIDE RECORDS SUMMARY | 2023-03-16 16:18 | XMS RPT_ITS | CCD ---
Author Name Unknown Address [address] [place] [address] Organization [facility] Results Test Name Value Interpretation [...] BE BASED ON THE PRIMARY CLINICAL RECORDS. [employer] provides no warranty or guarantee of the accuracy or completeness of information in this document.
[2023-03-16] MEDS: Octreotide 0.5 MG in Dextrose 5%-Water (250mL Bag) 249 ML 25 MG CONT INF (16:30)
[2023-03-16] MEDS: 0.9% Normal Saline (1000mL) 1,000 ML 100 ML IV (16:34)
[2023-03-16] MEDS: Pantoprazole Sodium 80 MG in 0.9% Normal Saline (50mL Bag) 15 ML 420 MG IV BOLUS (16:34)
--- NOTE | 2023-03-16 16:54 | ED.RN ---
pt triggered sepsis fluid rescusitation at this time and Dr. Marie notified and this RN was told that Dr. Marie did not believe that he was truly septic. Dr. Marie believes that instead of needing fluid, pt requires blood volume. she does not believe this to have a bacterial origin at this time.
[2023-03-16 18:16] LABS: Reflex Lactate? Y
[2023-03-16] MEDS: Insulin NPH Human 100 UNITS/ML PEN 20 UNITS SC (18:29)
[2023-03-16 18:40] LABS: Bedside Glucose > 500 mg/dL (74-106)
--- NOTE | 2023-03-16 18:55 | PCM.HOSP.N ---
Sepsis Attestation Sepsis Alert: Yes Sepsis Attestation: Sepsis Ruled Out Date exam was performed: 03/16/23 Time exam was performed: 15:00
[2023-03-16 19:04] LABS: Lactic Acid 1.8 mmol/L (0.4-1.9)
[2023-03-16 19:23] LABS: Glucose 813 mg/dL (74-106); Troponin-I HS 434 pg/mL (3.0-78.0)
[2023-03-16 20:41] LABS: Hematocrit 20.2 % (40-54); Hemoglobin 6.2 g/dL (13.0-16.5)
[2023-03-16] MEDS: Insulin Lispro 100 UNIT in 0.9% Normal Saline (100mL Bag) 99 ML 9.5 UNIT CONT INF (20:46)
[2023-03-16 20:49] LABS: Allen Test Positive; Base Excess 5 mmol/L (-2 to +2); Bicarbonate 30.2 mmol/L (22-26); Blood Gas Specimen Type ART; Mode Not entered; O2 Delivery Device Cannula; PO2 97 mmHG (75-100); SITE R Radial; SO2 97 % (95-99); Total Carbon Dioxide 32 mmol/L; pCO2 48.9 mmHg (35-45)
[2023-03-16 21:06] LABS: Troponin-I HS 622 pg/mL (3.0-78.0)
--- NOTE | 2023-03-16 22:16 | NURSING ---
This RN attempted to check patient's blood sugar at 2200 on a glucometer. Glucometer read high. Sent down blood to lab to check a glucose level through a chemistry. Will wait for results before titrating insulin drip.
[2023-03-16 22:19] LABS: Bedside Glucose > 500 mg/dL (74-106)
[2023-03-16] MEDS: Pantoprazole Sodium 40 MG in 0.9% Normal Saline (100mL MB+) 100 ML 330 MG IV (22:21)
[2023-03-16] MEDS: Menthol/Lanolin/Calamine/Znox 113 GM Tube 1 APPLIC TOPICAL (22:21)
[2023-03-16 22:39] LABS: Glucose 786 mg/dL (74-106)
--- NOTE | 2023-03-16 23:33 | NURSING ---
Patient had a DNRCCA-DNI band on. The chart said that patient was a full code. I asked patient orientation questions and CAM questions. Patient was able to answer appropriately and was alert and oriented. Verified this with a second RN, Sharyn. Patient stated that he did wish to be a full code. We removed the DNR band.
[2023-03-17] VITALS (31 sets, daily range): BP systolic 81–126; BP diastolic 50–73; PULSE 62–143; RESP 13–25; TEMP 36–36.5; O2SAT 95–100; BMI 29.2
[2023-03-17 00:02] LABS: Glucose 761 mg/dL (74-106)
[2023-03-17 00:37] LABS: Glucose 693 mg/dL (74-106)
[2023-03-17 00:44] LABS: Troponin-I HS 984 pg/mL (3.0-78.0)
[2023-03-17 01:39] LABS: Glucose 638 mg/dL (74-106)
[2023-03-17] MEDS: Octreotide 0.5 MG in Dextrose 5%-Water (250mL Bag) 249 ML 25 MG CONT INF ×3 (02:30→22:59)
[2023-03-17 02:32] LABS: Glucose 538 mg/dL (74-106)
[2023-03-17 03:38] LABS: Glucose 332 mg/dL (74-106)
[2023-03-17 03:46] LABS: Hematocrit 23.6 % (40-54); Hemoglobin 7.4 g/dL (13.0-16.5)
[2023-03-17 04:16] LABS: Absolute Neutrophil Count 17.2 X10^3/uL (2.0-7.7); Basophil# 0.06 X10^3/uL; Basophil% 0.3 % (0-1); Eosinophil# 0.07 X10^3/uL; Eosinophils% 0.3 % (0-5); Hematocrit 24.5 % (40-54); Hemoglobin 7.7 g/dL (13.0-16.5); Lymphocyte % 6.2 % (19-41); Mean Corp Hgb Conc 31.4 g/dL (32-36); Mean Corpuscular Hgb 29.7 pg (27.0-32.0); Mean Corpuscular Volume 94.6 fL (80-94); Mean Platelet Vol. 11.3 fl (6.2-12.0); Monocyte# 1.36 X10^3/uL; Monocyte% 6.5 % (0-10); NRBC Flagged by Analyzer 4.4 % (0-5); Neutrophil # 17.21 X10^3/uL (2.7-7.7); Neutrophil % 82.7 % (47-70); Platelet Count 214 K/mm3 (150-450); RBC Distribution Width CV 19.1 % (11.6-14.6); RBC Distribution Width SD 57.1 fl (35.1-43.9); Red Blood Count 2.59 M/mm3 (4.6-6.2); White Blood Count 20.8 K/mm3 (4.4-11.0)
[2023-03-17] MEDS: 0.9% Saline Lock 10 ML Syringe IV ×3 (04:24→09:59)
[2023-03-17 04:26] LABS: Bedside Glucose 288 mg/dL (74-106)
[2023-03-17 04:34] LABS: ALB/GLOB Ratio 1.2 RATIO (0.9-2.4); AST(SGOT) 11 U/L (15-37); Alanine Aminotransfer ALT/SGPT 18 U/L (16-61); Albumin, Serum 2.9 g/dL (3.2-5.0); Alkaline Phosphatase 61 U/L (45-117); Anion Gap 6 (5-15); BUN 96 mg/dL (7-18); BUN/Creat Ratio 42.7 RATIO (10-20); Calcium,Total 8.1 mg/dL (8.5-10.1); Chloride 104 mmol/L (98-107); Creatinine, Serum 2.25 mg/dL (0.70-1.30); EST Glomerular Filtration Rate 31 mL/min (>60); Est Glom Filt Rate - Afr Amer 37 mL/min (>60); Estimated Creatinine Clearance 34.43 ml/min; Globulin 2.4 g/dL (2.2-4.2); Glucose 211 mg/dL (74-106); LDH 232 U/L (87-241); Magnesium 2.1 mg/dL (1.6-2.6); Phosphorus 4.1 mg/dL (2.5-4.9); Potassium 4.1 mmol/L (3.5-5.1); Protein, Total 5.3 g/dL (6.4-8.2); Sodium Level 144 mmol/L (136-145)
--- NOTE | 2023-03-17 06:16 | CON.PCM.CC_ITS ---
Assessment & Plan Assessment/Plan (1) Acute upper GI bleed: PLAN: Plan RECOMMENDATIONS: 1. Continue to monitor H&H. Transfuse if hemoglobin drops below 7 g/dL. 2. Continue octreotide and PPI therapy. Await gastroenterology consultation. 3. Start scheduled DuoNebs and Pulmicort. 4. Wean supplemental oxygen to maintain saturations at or above 90%. 5. Initiate empiric antibiotics. 6. Continue basal and sliding scale insulin coverage. 7. Proceed with ultrasound-guided thoracentesis. IMPRESSIONS: 1. 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 The patient is currently responding to transfusion of blood products, with stabilization and hemodynamic status. The patient was previously on Eliquis, but had the medication discontinued due to bleeding related issues. He currently has an IVC filter in place. For reasons that are not entirely clear, the patient's Eliquis was restarted after his last hospitalization. Recommend discontinuing Eliquis completely. Continue octreotide and PPI therapy as ordered. Gastroenterology consultation is pending. 2. Bilateral pleural effusions CT imaging of the chest demonstrated bilateral pleural effusions, right greater than left with an associated right lower lobe consolidation. As such, the patient will be started on empiric antibiotics. There are tentative plans for ultrasound-guided thoracentesis. 3. Chronic hypoxemic respiratory failure/COPD The patient has a known history of COPD and a baseline oxygen requirement of 4 L/min. Recommend continuing triple therapy per outpatient regimen with scheduled DuoNebs and twice daily Pulmicort. 4. Troponin elevation Most likely secondary to demand ischemia in the setting #1. Echocardiogram is currently pending. Continue supportive care as noted above. 5. Acute on chronic kidney disease Most likely prerenal in etiology in the setting of #1. Anticipate improvement with stabilization of blood counts and hemodynamic status. Continue to monitor urine output. No current indication for renal replacement therapy. 6. History of diabetes mellitus/generalized weakness/coronary artery disease/BPH/history of VTE/atrial fibrillation Complicates care, management, recovery and prognosis. Continue supportive care as outlined above. The patient will require eventual physical therapy evaluation once medically stabilized. This note was generated with [employer] dictation software. It may contain incorrect words, spelling, and punctuation that were not noted in checking the note before signing. HPI Consult Data Date of Consult: 03/17/23 HPI Narrative Reason for Consultation: Hemorrhagic shock secondary to GI bleed HPI Narrative: The patient is a 72-year-old male, with a history as outlined below, who presented to the emergency department via EMS on March 16 with generalized weakness and subsequent fall at home. The patient has a known history of COPD and chronic hypoxemic respiratory failure with a baseline oxygen requirement of 4 L/min. The patient's medical history is also significant for chronic kidney disease, diabetes mellitus, coronary artery disease, atrial fibrillation, history of VTE, rheumatoid arthritis and history of Hodgkin's lymphoma. The vandana alarcon was recently admitted to the hospital for 2 days at the beginning of February in the setting of anemia shortness of breath. The patient did require transfusion of blood products during that hospitalization was treated for a COPD exacerbation. The patient was previously treated with Eliquis on account of a history of COVID induced coagulopathy with bilateral PE but did not tolerate apixaban. Therefore, he underwent IVC filter placement in April 2021. On presentation to the emergency department, the patient was noted to be hypotensive with a temperature of 96.8 ?F. He was maintaining appropriate oxygen saturations on 4 L/min via nasal cannula. Initial laboratory evaluation revealed a hemoglobin of 5.0 g/dL. Chemistry profile was notable for a sodium of 134, chloride of 94, bicarbonate of 30 and creatinine of 2.64. Glucose was elevated at 817. Lactate was increased to 4.5. Troponin was elevated at 435. Small serum acetone level was noted. COVID, influenza and RSV PCR were negative. Blood cultures are pending. Chest imaging demonstrated bilateral pleural effusions, right greater than left. Right lower lobe pneumonia was noted. CT head revealed chronic involutional changes of the brain. The patient is currently completing his third unit of packed red blood cells. Hemoglobin has improved to 7.7 g/dL this morning. White count is elevated at 21,000. Overnight, the patient was maintained on an insulin infusion for a period of time due to hyperglycemia. Creatinine is mildly improved this morning at 2.25 with a glucose of 211. Anion gap remains closed. Troponin has increased to 984. Surface echocardiogram is still pending. FORMERLY [facility], 1928–1983 Medical History Acute respiratory failure with hypoxia Allergic rhinitis Arthritis Asthma Atherosclerosis of coronary artery of false pass heart without angina pectoris Bleeding tendency Cancer Chronic bronchitis Colon polyp COPD (chronic obstructive pulmonary disease) COVID-19 in immunocompromised patient Diabetes DVT (deep venous thrombosis) (05/01/21) Essential hypertension Former smoker FTT (failure to thrive) in adult Gastritis High cholesterol History of basal cell carcinoma History of pilonidal cyst History of pulmonary embolus (PE) (04/30/21) History of stress test HTN (hypertension) Nicotine dependence, cigarettes, uncomplicated Non-Hodgkin lymphoma Obesity On home oxygen therapy Physical debility Pneumonia Positive colorectal cancer screening using Cologuard test RA (rheumatoid arthritis) Rhinovirus Tobacco abuse Type 2 diabetes mellitus Ulcer 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 complications Home Medications nitroglycerin 0.4 mg sublingual tablet (Nitrostat) 0.4 mg sublingual Q5M PRN chest pain #30 tabs 09/25/20 [Rx Last Taken Unknown] atorvastatin 40 mg tablet 20 mg PO QHS cholesterol 10/09/21 [History Last Taken 03/15/23] aspirin 81 mg tablet,delayed release 81 mg PO DAILY heart health 12/31/21 [History Last Taken 03/16/23] finasteride 5 mg tablet 5 mg PO DAILY prostate 08/14/22 [History Last Taken 03/16/23] tamsulosin 0.4 mg capsule 0.4 mg PO QHS prostate 08/14/22 [History Last Taken 03/15/23] ferrous sulfate 325 mg (65 mg iron) tablet 325 mg PO BID iron supplement 09/13/22 [History Last Taken 03/16/23] multivitamin 1 tab PO DAILY vitamin 09/13/22 [History Last Taken 03/16/23] pantoprazole 40 mg tablet,delayed release 40 mg PO BID reflux #180 tabs 09/23/22 [Rx Last Taken 03/16/23] escitalopram oxalate 10 mg tablet 10 mg PO DAILY mood 90 days #90 tabs 10/14/22 [Rx Last Taken 03/16/23] mirtazapine 15 mg tablet (Remeron) 7.5 mg (1/2 x 15 mg) PO QHS sleep #90 tabs 11/04/22 [Rx Last Taken 03/15/23] budesonide 1 mg/2 mL suspension for nebulization 1 mg inhalation Q12H lungs 11/15/22 [History Last Taken 03/16/23] albuterol sulfate 2.5 mg/3 mL (0.083 %) solution for nebulization 2.5 mg (3 mL) inhalation Q4H PRN Sob &/Or Wheezing #540 mL 01/13/23 [Rx Last Taken 03/16/23] ipratropium bromide 0.02 % solution for inhalation 2.5 ml inhalation Q6H PRN shortness of breath or wheezing #150 mL 01/13/23 [Rx Last Taken 02/27/23] guaifenesin 1,200 mg tablet, extended release 12 hr (Mucus Relief ER) 1,200 mg PO BID cough 10 days #20 tabs 03/02/23 [Rx Last Taken Unknown] prednisone 20 mg tablet 20 mg PO BID steroid #10 tabs 03/02/23 [Rx Last Taken 03/16/23] furosemide 40 mg tablet (Lasix) 40 mg PO DAILY diuretic #30 tabs 03/04/23 [Rx Last Taken 03/16/23] apixaban 5 mg tablet (Eliquis) 5 mg PO BID blood thinner 30 days #60 tabs 03/06/23 [Rx Last Taken 03/16/23] metoprolol tartrate 25 mg tablet 12.5 mg (1/2 x 25 mg) PO BID blood pressure 60 days #60 tabs 03/06/23 [Rx Last Taken 03/16/23] menthol 0.44 %-zinc oxide 20.6 % topical ointment (Calmoseptine) 1 applic topical 4-6XD PRN skin irritation #113 grams 03/07/23 [Rx Last Taken Unknown] guaifenesin 100 mg/5 mL oral liquid (Adult Tussin Chest Congestion) 400 mg PO BID cough/congestion 03/16/23 [History Last Taken Unknown] Allergy/AdvReac Type Severity Reaction Status Date / Time levofloxacin [From Levaquin] AdvReac Intermediate diarrhea, Verified 03/16/23 13:47 dizziness, GI upset, weakness Family History Father Arthritis Bleeding disorder Hypertension Kidney disease Cancer Skin Anemia blood clots Emphysema lung Mother Colon cancer Cancer Lung Cancer Diabetes Brother Thyroid disorder Surgical History H/O cardiac catheterization History of coronary artery stent placement (10/22/13) History of embolic filter insertion History of excision of pilonidal cyst History of heart artery stent History of thymectomy Hx of lymph node excision Presence of IVC filter (04/2021) Status post cardiac surgery Social History household members: spouse Smoking Status: Former smoker Tobacco: How many years used: 55 second hand exposure: Yes alcohol intake: current alcohol intake frequency: holidays/special occasions only substance use type: does not use caffeine: Yes Type: coffee Number of servings: 3 what type of physical activity do you participate in: none frequency: does not exercise seatbelt use: always ROS ROS Narrative 10 systems were reviewed with pertinent positives as noted in the HPI above. Physical Exam Const alert and no apparent distress General Appearance: cooperative HEENT normocephalic and head/scalp atraumatic Eyes PERRL, EOMs intact bilaterally and conjunctivae normal Neck supple General: trachea midline Chest inspection of chest normal Resp normal respiratory effort Auscultation: diminished lung sounds; Negative for rales, rhonchi or wheezes Cardio regular rate Rhythm: abnormal rhythm Heart Sounds: murmur GI normal to inspection, nondistended, normoactive bowel sounds Extremity General Extremity: edema; Negative for clubbing Skin no rashes or lesions noted Neuro CN's II-XII intact bilaterally, moves all extremities and no focal motor deficits Psych Mood & Affect: flat affect Lab / Micro Data 03/17/23 04:08 03/17/23 04:08 Labs: Laboratory Results - last 24 hr 03/16/23 13:58: POC Glucose > 500 H* 03/16/23 14:00: WBC 21.0 H, RBC 1.66 L, Hgb 5.0 L*, Hct 16.6 L, MCV 100.0 H, MCH 30.1, MCHC 30.1 L, RDW Std Deviation 63.7 H, RDW Coeff of Rafael 20.1 H, Plt Count 256, MPV 12.3 H, Immature Gran % (Auto) 4.100 H, Neut % (Auto) 82.4 H, Lymph % (Auto) 7.3 L, [place] % (Auto) 5.5, Eos % (Auto) 0.5, Baso % (Auto) 0.2, Absolute Neuts (auto) 17.3 H, Absolute Lymphs (auto) 1.54, Nucleated RBC % 2.1, Diffe rential Comment SCANNED, Diff Path Review May foll, Hypochromasia 1+, Anisocytosis 2+, Microcytosis 1+, Macrocytosis 1+, PT 18.0 H, INR 1.5, APTT 24.5, Sodium 134 L, Potassium 4.7, Chloride 94 L, Carbon Dioxide 30.0, Anion Gap 10, BUN 105 H*, Creatinine 2.64 H, Estim Creat Clear Calc 29.26, Est GFR (MDRD) Af Amer 31 L, Est GFR (MDRD) Non-Af 25 L, BUN/Creatinine Ratio 39.8 H, Glucose 817 H*, Lactic Acid 4.5 H*, Calcium 8.7, Total Bilirubin 0.60, AST 7 L, ALT 19, Alkaline Phosphatase 61, Total Creatine Kinase 37 L, Troponin I High Sens 435 H* , Total Protein 5.2 L, Albumin 2.8 L, Globulin 2.4, Albumin/Globulin Ratio 1.2, Acetone Level NEGATIVE, Blood Type AB POSITIVE, Antibody Screen NEGATIVE, Crossmatch See Detail 03/16/23 14:00: Crossmatch See Detail 03/16/23 14:40: Urine Color Yellow, Urine Clarity Clear, Urine pH 6.5, Ur Specific [place] 1.010, Urine Protein 30 H, Urine Glucose (UA) 1000 H, Urine Ketones Negative, Urine Occult Blood 25 H, Urine Nitrite Negative, Urine Bilirubin Negative, Urine Urobilinogen Normal, Ur Leukocyte Esterase 500 H, Urine RBC 0 SEEN, Urine WBC 50-100 SEEN, Ur Squamous Epith Cells 0-5 SEEN, Urine Bacteria 0 SEEN, Urine Mucus 0 SEEN 03/16/23 18:21: POC Glucose > 500 H* 03/16/23 18:30: Glucose 813 H*, Lactic Acid 1.8, Troponin I High Sens 434 H* 03/16/23 20:20: Hgb 6.2 L, Hct 20.2 L, Acetone Level SMALL H 03/16/23 20:35: Troponin I High Sens 622 H* 03/16/23 22:02: POC Glucose > 500 H* 03/16/23 22:05: Glucose 786 H* 03/16/23 23:10: Glucose 761 H* 03/17/23 00:05: Glucose 693 H*, Troponin I High Sens 984 H* 03/17/23 01:05: Glucose 638 H* 03/17/23 02:05: Glucose 538 H* 03/17/23 03:05: Hgb 7.4 L, Hct 23.6 L, Glucose 332 H 03/17/23 04:05: POC Glucose 288 H 03/17/23 04:08: WBC 20.8 H, RBC 2.59 L, Hgb 7.7 L, Hct 24.5 L, MCV 94.6 H D, MCH 29.7, MCHC 31.4 L, RDW Std Deviation 57.1 H, RDW Coeff of Rafael 19.1 H, Plt Count 214, MPV 11.3, Immature Gran % (Auto) 4.000 H, Neut % (Auto) 82.7 H, Lymph % (Auto) 6.2 L, [place] % (Auto) 6.5, Eos % (Auto) 0.3, Baso % (Auto) 0.3, Absolute Neuts (auto) 17.2 H, Absolute Lymphs (auto) 1.30, Nucleated RBC % 4.4, Sodium 144, Potassium 4.1, Chloride 104, Carbon Dioxide 34.0 H, Anion Gap 6, BUN 96 H, Creatinine 2.25 H, Estim Creat Clear Calc 34.43, Est GFR (MDRD) Af Amer 37 L, Est GFR (MDRD) Non-Af 31 L, BUN/Creatinine Ratio 42.7 H, Glucose 211 H, Calcium 8.1 L, Phosphorus 4.1, Magnesium 2.1, Total Bilirubin 0.60, AST 11 L, ALT 18, Alkaline Phosphatase 61, Lactate Dehydrogenase 232, Total Protein 5.3 L, Albumin 2.9 L, Globulin 2.4, Albumin/Globulin Ratio 1.2 Micro: Microbiology 03/16/23 14:40 Mucosa - Nose SARS-CoV-2, Influenza & RSV (PCR) - Final 03/16/23 14:40 Stool Stool Occult Blood ([facility]) - Final Occult Blood Positive ABG Data ABG results: ABG 03/16/23 03/16/23 14:18 20:22 Specimen Type JESUSITA ART Sample Site Not entered R Radial pH 7.40 Bicarbonate Actual 30.2 H Total CO2 32 Base Excess 5 H O2 Saturation 97 O2 % 4.0 4.0 ABG pCO2 48.9 H ABG pO2 97 Thompson Test Positive VBG pH 7.39 VBG pO2 35 VBG HCO3 30 H VBG Total CO2 31 VBG O2 Sat (Calc) 65 VBG Base Excess 5 H POC Mix VBG pCO2 Pt Tmp 49.5 O2 Delivery Device Cannula Cannula Vent Mode Not entered Rhythm Strip Rhythm Strip: A-fib Rate: 69 Ectopy: None Imagaing Radiology Impression Chest X-Ray 03/16/23 14:04 IMPRESSION: Pulmonary findings appear improved. Electronically Signed: Moo Yanes MD at 14:48 EST , Brain CT 03/16/23 14:05 IMPRESSION: There are no acute findings. Chronic involutional changes of the brain. Electronically Signed: Moo Yanes MD at 14:43 EST , Cervical Spine CT 03/16/23 14:05 IMPRESSION: (NOT LISTED IN ORDER OF SIGNIFICANCE) There are no acute findings. Electronically Signed: Moo Yanes MD at 14:46 EST , Chest CT 03/16/23 15:05 IMPRESSION: Moderate right pleural effusion. Small left pleural effusion. Lower lobe bronchiectasis and a right lower lobe pneumonia. Electronically Signed: Moo Yanes MD at 16:50 EST , Charges/Coding Visit Charges Inpatient E&M: 32437 Init Hosp L3
[2023-03-17] MEDS: Insulin Lispro 100 UNIT/ML INSULN.PEN SC (06:29)
[2023-03-17] MEDS: Menthol/Lanolin/Calamine/Znox 113 GM Tube 1 APPLIC TOPICAL ×3 (06:30→21:00)
[2023-03-17 06:39] LABS: Bedside Glucose 172 mg/dL (74-106)
[2023-03-17] MEDS: Budesonide Respules 0.5 MG/2 ML AMPUL.NEB. INHALATION ×2 (07:14→19:00)
--- NOTE | 2023-03-17 07:29 | PCM.PN.HOSP ---
Reason for Visit Reason for Visit: Diagnoses Anemia, unspecified (03/16/23) Elevated white blood cell count, unspecified (03/16/23) Acute metabolic acidosis (03/16/23) Hypotension, unspecified (03/16/23) Pleural effusion, not elsewhere classified (03/16/23) Acute kidney failure, unspecified (03/16/23) Other fatigue (03/16/23) Other shock (03/16/23) Hyperglycemia, unspecified (03/16/23) Other specified abnormal findings of blood chemistry (03/16/23) Unspecified fall, initial encounter (03/16/23) Objective Data Objective Data Vital Signs: Vital Signs Temp Pulse Resp BP Pulse Ox O2 Del Method O2 Flow Rate 96.9 F L 63 18 105/50 L 98 Nasal Cannula 4 03/17/23 06:00 03/17/23 07:00 03/17/23 07:00 03/17/23 07:00 03/17/23 07:00 03/17/23 07:00 03/17/23 07:00 Oxygen Flow Rate (L/min) 4 Oxygen Delivery Method Nasal Cannula Weight: 209 lb 14.081 oz Body Mass Index (BMI) 29.2 Intake & Output: Intake and Output for Last 24 Hours 03/15/23 03/16/23 03/17/23 23:59 23:59 23:59 Intake Total 367.90 / 380.88 265.80 / 265.80 Output Total 850 / 850 1100 / 1100 Balance -482.10 / -469.12 -834.20 / -834.20 Lab / Micro Data 03/17/23 11:22 03/17/23 04:08 Labs: Laboratory Results - last 24 hr 03/16/23 13:58: POC Glucose > 500 H* 03/16/23 14:00: WBC 21.0 H, RBC 1.66 L, Hgb 5.0 L*, Hct 16.6 L, MCV 100.0 H, MCH 30.1, MCHC 30.1 L, RDW Std Deviation 63.7 H, RDW Coeff of Rafael 20.1 H, Plt Count 256, MPV 12.3 H, Immature Gran % (Auto) 4.100 H, Neut % (Auto) 82.4 H, Lymph % (Auto) 7.3 L, [place] % (Auto) 5.5, Eos % (Auto) 0.5, Baso % (Auto) 0.2, Absolute Neuts (auto) 17.3 H, Absolute Lymphs (auto) 1.54, Nucleated RBC % 2.1, Differential Comment SCANNED, Diff Path Review May foll, Hypochromasia 1+, Anisocytosis 2+, Microcytosis 1+, Macrocytosis 1+, PT 18.0 H, INR 1.5, APTT 24.5, Sodium 134 L, Potassium 4.7, Chloride 94 L, Carbon Dioxide 30.0, Anion Gap 10, BUN 105 H*, Creatinine 2.64 H, Estim Creat Clear Calc 29.26, Est GFR (MDRD) Af Amer 31 L, Est GFR (MDRD) Non-Af 25 L, BUN/Creatinine Ratio 39.8 H, Glucose 817 H*, Lactic Acid 4.5 H*, Calcium 8.7, Total Bilirubin 0.60, AST 7 L, ALT 19, Alkaline Phosphatase 61, Total Creatine Kinase 37 L, Troponin I High Sens 435 H*, Total Protein 5.2 L, Albumin 2.8 L, Globulin 2.4, Albumin/Globulin Ratio 1.2, Acetone Level NEGATIVE, Blood Type AB POSITIVE, Antibody Screen NEGATIVE, Crossmatch See Detail 03/16/23 14:00: Crossmatch See Detail 03/16/23 14:40: Urine Color Yellow, Urine Clarity Clear, Urine pH 6.5, Ur Specific [place] 1.010, Urine Protein 30 H, Urine Glucose (UA) 1000 H, Urine Ketones Negative, Urine Occult Blood 25 H, Urine Nitrite Negative, Urine Bilirubin Negative, Urine Urobilinogen Normal, Ur Leukocyte Esterase 500 H, Urine RBC 0 SEEN, Urine WBC 50-100 SEEN, Ur Squamous Epith Cells 0-5 SEEN, Urine Bacteria 0 SEEN, Urine Mucus 0 SEEN 03/16/23 18:21: POC Glucose > 500 H* 03/16/23 18:30: Glucose 813 H*, Lactic Acid 1.8, Troponin I High Sens 434 H* 03/16/23 20:20: Hgb 6.2 L, Hct 20.2 L, Acetone Level SMALL H 03/16/23 20:35: Troponin I High Sens 622 H* 03/16/23 22:02: POC Glucose > 500 H* 03/16/23 22:05: Glucose 786 H* 03/16/23 23:10: Glucose 761 H* 03/17/23 00:05: Glucose 693 H*, Troponin I High Sens 984 H* 03/17/23 01:05: Glucose 638 H* 03/17/23 02:05: Glucose 538 H* 03/17/23 03:05: Hgb 7.4 L, Hct 23.6 L, Glucose 332 H 03/17/23 04:05: POC Glucose 288 H 03/17/23 04:08: WBC 20.8 H, RBC 2.59 L, Hgb 7.7 L, Hct 24.5 L, MCV 94.6 H D, MCH 29.7, MCHC 31.4 L, RDW Std Deviation 57.1 H, RDW Coeff of Rafael 19.1 H, Plt Count 214, MPV 11.3, Immature Gran % (Auto) 4.000 H, Neut % (Auto) 82.7 H, Lymph % (Auto) 6.2 L, [place] % (Auto) 6.5, Eos % (Auto) 0.3, Baso % (Auto) 0.3, Absolute Neuts (auto) 17.2 H, Absolute Lymphs (auto) 1.30, Nucleated RBC % 4.4, Sodium 144, Potassium 4.1, Chloride 104, Carbon Dioxide 34.0 H, Anion Gap 6, BUN 96 H, Creatinine 2.25 H, Estim Creat Clear Calc 34.43, Est GFR (MDRD) Af Amer 37 L, Est GFR (MDRD) Non-Af 31 L, BUN/Creatinine Ratio 42.7 H, Glucose 211 H, Calcium 8.1 L, Phosphorus 4.1, Magnesium 2.1, Total Bilirubin 0.60, AST 11 L, ALT 18, Alkaline Phosphatase 61, Lactate Dehydrogenase 232, Total Protein 5.3 L, Albumin 2.9 L, Globulin 2.4, Albumin/Globulin Ratio 1.2 03/17/23 06:21: POC Glucose 172 H Micro: Microbiology 03/16/23 14:40 Mucosa - Nose SARS-CoV-2, Influenza & RSV (PCR) - Final 03/16/23 14:40 Stool Stool Occult Blood ([facility]) - Final Occult Blood Positive ABG Data ABG results: ABG 03/16/23 03/16/23 14:18 20:22 Specimen Type JESUSITA ART Sample Site Not entered R Radial pH 7.40 Bicarbonate Actual 30.2 H Total CO2 32 Base Excess 5 H O2 Saturation 97 O2 % 4.0 4.0 ABG pCO2 48.9 H ABG pO2 97 Thompson Test Positive VBG pH 7.39 VBG pO2 35 VBG HCO3 30 H VBG Total CO2 31 VBG O2 Sat (Calc) 65 VBG Base Excess 5 H POC Mix VBG pCO2 Pt Tmp 49.5 O2 Delivery Device Cannula Cannula Vent Mode Not entered Radiography Diagnostic Testing: Radiology Impression Chest X-Ray 03/16/23 14:04 IMPRESSION: Pulmonary findings appear improved. Electronically Signed: Moo Yanes MD at 14:48 EST , Brain CT 03/16/23 14:05 IMPRESSION: There are no acute findings. Chronic involutional changes of the brain. Electronically Signed: Moo Yanes MD at 14:43 EST , Cervical Spine CT 03/16/23 14:05 IMPRESSION: (NOT LISTED IN ORDER OF SIGNIFICANCE) There are no acute findings. Electronically Signed: Moo Yanes MD at 14:46 EST , Chest CT 03/16/23 15:05 IMPRESSION: Moderate right pleural effusion. Small left pleural effusion. Lower lobe bronchiectasis and a right lower lobe pneumonia. Electronically Signed: Moo Yanes MD at 16:50 EST , Rhythm Strip Rhythm Strip: A-fib Rate: 69 Ectopy: None Physical Exam Narrative Seen and examined. Patient is sick looking. Currently A-fib With RVR on monitor. Patient was supposed to go for thoracocentesis and EGD but currently heart rate needs to be stabilized. On AMU drip. Physical exam General: Alert, Oriented x3, Cooperative HEENT: Atraumatic, PERRLA, EOMI, Normocephalic Oral: No Gingival or Mucosal Lesions/ Ulcerations Neck: Supple, No JVD, Negative Carotid Bruits Lungs: Air entry diminished in bilateral lung bases. No crepitation/rhonchi. On 4 L of oxygen. Cardiovascular: A-fib RVR, blood pressure low 90/59, No murmurs Abdomen: Bowel Sounds Present, Soft, Non Tender, Non-Distended : No renal angle tenderness. No suprapubic tenderness. Extremities: No edema, Capillary Refill Less than 3 Seconds Skin: No rashes, No breakdown Musculoskeletal: No Tenderness to Palpation of Joints or Extremities Neurological: Cranial nerves II-XII grossly intact, DTR 2+/4. No acute focal neurological deficit. Psych/Mental Status: Flat affect. HEENT normocephalic and head/scalp atraumatic Eyes PERRL and EOMs intact bilaterally Eyes Narrative: Severe conjunctival pallor bilaterally, no scleral icterus Neck no lymphadenopathy and supple Neck Narrative: Trachea midline, no thyroid enlargement Resp normal respiratory effort, no retractions and no use of accessory muscles Resp Narrative: Diffusely diminished with decreased breath sounds at right base Auscultation: Negative for rales, rhonchi or wheezes Cardio regular rate, S1 normal heart sound, S2 normal heart sound, no rub, no gallops and no clicks; Negative for regular rhythm or no murmurs Cardio Narrative: Irregularly irregular rhythm, 2 out of 6 systolic murmur GI normal to inspection, nondistended, normoactive bowel sounds, soft to palpation and non-tender Extremity Extremity Narrative: 1-2+ bilateral lower extremity pitting edema which is chronic, no cyanosis or clubbing Skin no rashes or lesions noted, no wounds, no jaundice, no petechiae and no mottling Skin Narrative: Skin is extremely pale, palmar creases are pale, no significant wounds noted Neuro oriented x3, moves all extremities and no focal motor deficits Neuro Narrative: Significant generalized weakness noted with no focal deficits Speech: speech normal Psych Psych Narrative: Affect is flattened mood seems depressed Assessment & Plan Assessment/Plan (1) Acute anemia: (2) Hypotension: (3) Fall: (4) Fatigue: (5) Hyperglycemia: (6) Pleural effusion on right: (7) LUIS (acute kidney injury): (8) Hemorrhagic shock: (9) Acute lactic acidosis: (10) Leukocytosis: (11) Elevated troponin I level: PLAN: Plan 72-year-old male was admitted through ER after he fell backward in the bathroom and hit his head. Patient was very fatigued with chronic leg edema and black stool/melena. Patient was found hypotensive in shock in ED. Patient was found severely anemic 5.0, platelet count 256 and had 3 units of PRBC transfusion. Acute hemorrhagic shock due to upper GI bleed -This is the cause of his hypotension -Hemoglobin is 5.0. No metabolic acidosis noted on VBG but lactate is up at 4.5. Leukocytosis, suspected reactive from steroid use and acute GI bleed. Sepsis ruled out. Last hemoglobin 8.7, increased from 5.0. -IV fluids running until packed red blood cells but can be given -If pressure does not improve may need pressor -Hold home medications that can drop blood pressure Acute on chronic anemia -Baseline hemoglobin appears to run between 7.0 and 8.0. -Recent admission 03/03/2023 through 03/06/2023 had 2 units of packed red blood cells and hemoglobin was 10.0 on discharge -Patient is on iron at baseline and follows as an outpatient with hematology Acute GI bleed -Patient with grossly bloody stools -Cycle hemoglobin as noted above -Transfuse 3 units packed red blood cells -Octreotide drip -Protonix IV push 40 mg twice daily -Hold home Eliquis -Hold home aspirin Plan for EGD after blood pressure and heart rate stabilization. Troponin elevation -Troponin elevation at greater than 400 on admission -Suspect type II NSTEMI due to demand ischemia with severe anemia -Check echocardiogram for any signs of wall motion -Patient is not a cardiac catheterization candidate at this point due to his GI bleeding -Cycle cardiac enzymes LUIS on CKD stage IIIb -Baseline serum creatinine is between 1.5 and 1.8 -Current serum creatinine is 2.64 -Suspect related to hypotension and acute blood loss -Hold diuretics -Blood transfusion as ordered -Continue IV fluids until blood can be initiated -Hold home Flomax -Place Ball -No further workup at this time however if creatinine does not improve with transfusion may need to pursue further workup and possible nephrology consultation DM-2 with hyperglycemia -Patient severely hyperglycemic on admission -Obtaining a hemoglobin A1c would be futile due to his severe anemia and transfusion being initiated -Blood sugars have been up and patient has been on steroids lately -Will give NPH 15 units x 1 dose -Start Lantus at nightly 15 units -High-dose SSI every 6 hours and hold off scheduled log at this time to see what blood sugars and see what blood sugars run with basal insulin and sliding scale -Clear liquid diet for tonight and n.p.o. after midnight -When oral diet can be reinitiated would recommend cardiac/carb control at 1800 kcal Right pleural effusion -Appears to be quite large on chest x-ray -CT chest pending -Will obtain thoracentesis if patient agreeable and effusion seems sizable when compared to previous imaging -If Thora needed will send studies on fluid Debility/fall/generalized weakness/fatigue -Acute issues likely related to acute anemia and hypotension -PT/OT consultation -Social work/case management consultation for assistance with discharge planning -Imaging done for fall shows no fracture or acute findings on presentation Chronic hypoxic respiratory failure secondary to COPD -Patient's baseline oxygen is 4 L nasal cannula -Remains on 4 L nasal cannula with good oxygen saturations -Chest x-ray is stable -Continue as needed albuterol -Continued inhaled budesonide -Hold Lasix for now -Continue home guaifenesin -Continue home ipratropium as needed History of GI bleed/GERD -Hold home oral Protonix -IV Protonix -Previous scope in 2021 showed angiodysplastic lesions in the stomach and duodenum -Patient also has previously had a positive capsule endoscopy CAD/HTN/HPL -Patient with previous PCI to LAD and RCA as well as mid circumflex lesions remotely -Hold home antihypertensives due to hypotension on presentation -Hold home aspirin due to GI bleed -Okay to continue atorvastatin BPH with obstruction -Continue Proscar -Hold Flomax due to this potentially causing blood pressure drops to be alpha blockade History of VTE/PE -Patient had been off anticoagulation but this was restarted after last discharge -Patient does have an IVC filter that was placed in 2001 -[employer] was diagnosed when patient had COVID-19 infection Atrial fibrillation -Was diagnosed as new during last hospitalization -Currently in rate controlled atrial fibrillation -Hold home metoprolol for now due to severe hypotension on presentation -Will restart if blood pressure improves with blood -Discontinue apixaban that was started -patient has now proven that he cannot be on anticoagulation and will discontinue Eliquis indefinitely -Monitor on telemetry History of Hodgkin lymphoma status post ABVD and radiation 2000 -Remote -No current issues -Follows as outpatient with oncology History of rheumatoid arthritis -Patient was previously treated with Biologics however is not currently on any -Continue outpatient follow-up Depression -Continue home mirtazapine -Continue home Lexapro DVT prophylaxis -SCDs -Chemoprophylaxis contraindicated due to GI bleeding and severe anemia on presentation CODE STATUS -Full code as per discussion prior to admission with patient and family however son is going to arrive soon and they will have further discussion so CODE STATUS could potentially change within the next 24 hours. PRBC transfusion Charges/Coding Visit Charges Inpatient E&M: 35155 Subs Hosp L3
--- NOTE | 2023-03-17 08:14 | NURSING ---
Lenard Castro at bedside. Hr up to 130's with raising patients head up/. Procedure postponed at this time. Maritza RASCON notified, will take patient to [facility] for endo
--- NOTE | 2023-03-17 08:25 | NURSING ---
Surgery on phone, advised to take patient back to ICU. Pt taken back to [facility], report given to Maritza RASCON
[2023-03-17 08:33] LABS: BNP,B-Type NATRIURETIC PEPTIDE 650.8 pg/mL (0-100)
[2023-03-17 08:37] LABS: Procalcitonin 0.28 ng/mL (0.00-0.09)
[2023-03-17] MEDS: Piperacil/Tazobactam 3.375 GM in 0.9% Normal Saline (50mL MB+) 50 ML IV ×3 (09:29→21:00)
[2023-03-17] MEDS: Amiodarone 150 MG in Dextrose 5%-Water (100mL Bag) 100 ML 600 MG IV BOLUS (09:30)
[2023-03-17] MEDS: Amiodarone 360 MG in Dextrose 5% Viaflo Bag 192.8 ML 16.6999999999999993 MG CONT INF ×2 (09:52→21:50)
[2023-03-17] MEDS: Pantoprazole Sodium 40 MG in 0.9% Normal Saline (100mL MB+) 100 ML 330 MG IV ×2 (09:57→21:00)
[2023-03-17 10:53] LABS: M R Staph aureus DNA By PCR Negative (Negative); Probe Check PASS; Specimen Processing Control PASS
[2023-03-17 11:32] LABS: Hemoglobin 8.7 g/dL (13.0-16.5)
[2023-03-17] MEDS: Dextrose 50%-Water 25 GM/50 ML DISP.SYRIN IV (12:36)
[2023-03-17 13:22] LABS: Bedside Glucose 126 mg/dL (74-106)
[2023-03-17] MEDS: Ipratropium 0.5 MG/2.5 ML SOLUTION INHALATION ×2 (13:22→18:59)
[2023-03-17 14:28] LABS: Pathologist Review Reviewed
[2023-03-17 14:40] LABS: Bedside Glucose 34 mg/dL (74-106)
[2023-03-17 14:40] LABS: Bedside Glucose 39 mg/dL (74-106)
[2023-03-17 14:40] LABS: Bedside Glucose 32 mg/dL (74-106)
--- NOTE | 2023-03-17 16:54 | EX.PCM.CON.G ---
HPI Consult Data Date of Consult: 03/17/23 HPI Narrative Reason for Consultation: GI bleed HPI Narrative: SAL ALONZO, is a 72 M who presented to the emergency department at [facility] on 03/16/2023 after a fall at home. Evidently, he was going to the bathroom and fell backwards and hit his head. He lives at home with his and granddaughter. After the fall EMS was called as the patient is chronically anticoagulated on apixaban. He did have some bleeding from his nose at that time and indicates he is felt tired today but denied any fever, chills, chest pain, shortness of breath, cough or numbness/tingling/focal weakness. He has chronic lower extremity edema that is unchanged from his baseline. He does indicate he has have been having black tarry stools for some time but is unclear how long he has been having these. His blood sugars have been markedly elevated at home and upon EMS arrival his blood sugar was in the 600. He is on prednisone for his lungs. He was concerned that all of his symptoms were related to his blood sugar. He did have a recent admission here from 03/03/2023 through 03/06/2023 for anemia and hypoxemia. He was treated for acute exacerbation of COPD and diuresed as there was felt to be a component of acute on chronic HFrEF. He was noted to have a hemoglobin of 6.7 on presentation and received initially 1 unit of packed red blood cells he remained short of breath so another unit was given prior to discharge. Hemoglobin at the time of discharge was 10. Hemoccult was done at that time and was found to be positive. The patient does have previous history of GI bleed and also follows as an outpatient with hematology and receives iron infusions. 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 He had a capsule endoscopy was also done at the end of 2021 in December and was found to be negative. He had a recurrent fecal occult blood that was positive in July 2022 and had a capsule endoscopy at that time which showed some erosions and was treated with packed red blood cells and received Venofer infusions. The patient is on chronic oxygen and wears 4 L at baseline. His hemoglobin had dropped all way down to 5. He has been given 3 units of packed red blood cells and his hemoglobin is up to 8.7. He also has been having intermittent episodes of SVT. I was called to see him due to GI bleed. He was started on an octreotide drip and a Protonix bolus 80mg x 1 dose. He got a echocardiogram today that showed his ejection fraction is down to 35%. [facility]LY [facility] Medical History Acute respiratory failure with hypoxia Allergic rhinitis Arthritis Asthma Atherosclerosis of coronary artery of [place] heart without angina pectoris Bleeding tendency Cancer Chronic bronchitis Colon polyp COPD (chronic obstructive pulmonary disease) COVID-19 in immunocompromised patient Diabetes DVT (deep venous thrombosis) (05/01/21) Essential hypertension Former smoker FTT (failure to thrive) in adult Gastritis High cholesterol History of basal cell carcinoma History of pilonidal cyst History of pulmonary embolus (PE) (04/30/21) History of stress test HTN (hypertension) Nicotine dependence, cigarettes, uncomplicated Non-Hodgkin lymphoma Obesity On home oxygen therapy Physical debility Pneumonia Positive colorectal cancer screening using Cologuard test RA (rheumatoid arthritis) Rhinovirus Tobacco abuse Type 2 diabetes mellitus Ulcer 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 complications Home Medications nitroglycerin 0.4 mg sublingual tablet (Nitrostat) 0.4 mg sublingual Q5M PRN chest pain #30 tabs 09/25/20 [Rx Last Taken Unknown] atorvastatin 40 mg tablet 20 mg PO QHS cholesterol 10/09/21 [History Last Taken 03/15/23] aspirin 81 mg tablet,delayed release 81 mg PO DAILY heart health 12/31/21 [History Last Taken 03/16/23] finasteride 5 mg tablet 5 mg PO DAILY prostate 08/14/22 [History Last Taken 03/16/23] tamsulosin 0.4 mg capsule 0.4 mg PO QHS prostate 08/14/22 [History Last Taken 03/15/23] ferrous sulfate 325 mg (65 mg iron) tablet 325 mg PO BID iron supplement 09/13/22 [History Last Taken 03/16/23] multivitamin 1 tab PO DAILY vitamin 09/13/22 [History Last Taken 03/16/23] pantoprazole 40 mg tablet,delayed release 40 mg PO BID reflux #180 tabs 09/23/22 [Rx Last Taken 03/16/23] escitalopram oxalate 10 mg tablet 10 mg PO DAILY mood 90 days #90 tabs 10/14/22 [Rx Last Taken 03/16/23] mirtazapine 15 mg tablet (Remeron) 7.5 mg (1/2 x 15 mg) PO QHS sleep #90 tabs 11/04/22 [Rx Last Taken 03/15/23] budesonide 1 mg/2 mL suspension for nebulization 1 mg inhalation Q12H lungs 11/15/22 [History Last Taken 03/16/23] albuterol sulfate 2.5 mg/3 mL (0.083 %) solution for nebulization 2.5 mg (3 mL) inhalation Q4H PRN Sob &/Or Wheezing #540 mL 01/13/23 [Rx Last Taken 03/16/23] ipratropium bromide 0.02 % solution for inhalation 2.5 ml inhalation Q6H PRN shortness of breath or wheezing #150 mL 01/13/23 [Rx Last Taken 02/27/23] guaifenesin 1,200 mg tablet, extended release 12 hr (Mucus Relief ER) 1,200 mg PO BID cough 10 days #20 tabs 03/02/23 [Rx Last Taken Unknown] prednisone 20 mg tablet 20 mg PO BID steroid #10 tabs 03/02/23 [Rx Last Taken 03/16/23] furosemide 40 mg tablet (Lasix) 40 mg PO DAILY diuretic #30 tabs 03/04/23 [Rx Last Taken 03/16/23] apixaban 5 mg tablet (Eliquis) 5 mg PO BID blood thinner 30 days #60 tabs 03/06/23 [Rx Last Taken 03/16/23] metoprolol tartrate 25 mg tablet 12.5 mg (1/2 x 25 mg) PO BID blood pressure 60 days #60 tabs 03/06/23 [Rx Last Taken 03/16/23] menthol 0.44 %-zinc oxide 20.6 % topical ointment (Calmoseptine) 1 applic topical 4-6XD PRN skin irritation #113 grams 03/07/23 [Rx Last Taken Unknown] guaifenesin 100 mg/5 mL oral liquid (Adult Tussin Chest Congestion) 400 mg PO BID cough/congestion 03/16/23 [History Last Taken Unknown] Allergy/AdvReac Type Severity Reaction Status Date / Time levofloxacin [From Levaquin] AdvReac Intermediate diarrhea, Verified 03/16/23 13:47 dizziness, GI upset, weakness Family History Father Arthritis Bleeding disorder Hypertension Kidney disease Cancer Skin Anemia blood clots Emphysema lung Mother Colon cancer Cancer Lung Cancer Diabetes Brother Thyroid disorder Surgical History H/O cardiac catheterization History of coronary artery stent placement (10/22/13) History of embolic filter insertion History of excision of pilonidal cyst History of heart artery stent History of thymectomy Hx of lymph node excision Presence of IVC filter (04/2021) Status post cardiac surgery Social History household members: spouse Smoking Status: Former smoker Tobacco: How many years used: 55 second hand exposure: Yes alcohol intake: current alcohol intake frequency: holidays/special occasions only substance use type: does not use caffeine: Yes Type: coffee Number of servings: 3 what type of physical activity do you participate in: none frequency: does not exercise seatbelt use: always ROS ROS Narrative 10 systems were reviewed with pertinent positives as noted in the HPI above. Physical Exam Const alert, oriented x3 and no apparent distress; Negative for average body habitus, healthy appearing or well nourished Constitutional Narrative: Obese, chronically ill-appearing, older, white male, lying in bed, daughter at bedside, patient appears comfortable on 4 L nasal cannula which is his baseline, nontoxic but ill-appearing HEENT normocephalic and head/scalp atraumatic HEENT Narrative: Mild to moderate hearing loss, mucous membranes are dry, no thrush, Mallampati 2-3 Eyes PERRL and EOMs intact bilaterally Eyes Narrative: Severe conjunctival pallor bilaterally, no scleral icterus Neck no lymphadenopathy and supple Neck Narrative: Trachea midline, no thyroid enlargement Resp normal respiratory effort, no retractions and no use of accessory muscles Resp Narrative: Diffusely diminished with decreased breath sounds at right base Auscultation: Negative for rales, rhonchi or wheezes Cardio regular rate, S1 normal heart sound, S2 normal heart sound, no rub, no gallops and no clicks; Negative for regular rhythm or no murmurs Cardio Narrative: Irregularly irregular rhythm, 2 out of 6 systolic murmur GI normal to inspection, nondistended, normoactive bowel sounds, soft to palpation and non-tender Extremity Extremity Narrative: 1-2+ bilateral lower extremity pitting edema which is chronic, no cyanosis or clubbing Skin no rashes or lesions noted, no wounds, no jaundice, no petechiae and no mottling Skin Narrative: Skin is extremely pale, palmar creases are pale, no significant wounds noted Neuro oriented x3, moves all extremities and no focal motor deficits Neuro Narrative: Significant generalized weakness noted with no focal deficits Speech: speech normal Psych Psych Narrative: Affect is flattened mood seems depressed Lab / Micro Data 03/17/23 11:22 03/17/23 04:08 Labs: Laboratory Results - last 24 hr 03/16/23 14:00: Diff Path Review Reviewed, Crossmatch See Detail 03/16/23 14:00: Crossmatch See Detail 03/16/23 18:21: POC Glucose > 500 H* 03/16/23 18:30: Glucose 813 H*, Lactic Acid 1.8, Troponin I High Sens 434 H* 03/16/23 20:20: Hgb 6.2 L, Hct 20.2 L, Acetone Level SMALL H 03/16/23 20:35: Troponin I High Sens 622 H* 03/16/23 22:02: POC Glucose > 500 H* 03/16/23 22:05: Glucose 786 H* 03/16/23 23:10: Glucose 761 H* 03/17/23 00:05: Glucose 693 H*, Troponin I High Sens 984 H* 03/17/23 01:05: Glucose 638 H* 03/17/23 02:05: Glucose 538 H* 03/17/23 03:05: Hgb 7.4 L, Hct 23.6 L, Glucose 332 H, B-Natriuretic Peptide 650.8 H 03/17/23 04:05: POC Glucose 288 H 03/17/23 04:08: WBC 20.8 H, RBC 2.59 L, Hgb 7.7 L, Hct 24.5 L, MCV 94.6 H D, MCH 29.7, MCHC 31.4 L, RDW Std Deviation 57.1 H, RDW Coeff of Rafael 19.1 H, Plt Count 214, MPV 11.3, Immature Gran % (Auto) 4.000 H, Neut % (Auto) 82.7 H, Lymph % (Auto) 6.2 L, [place] % (Auto) 6.5, Eos % (Auto) 0.3, Baso % (Auto) 0.3, Absolute Neuts (auto) 17.2 H, Absolute Lymphs (auto) 1.30, Nucleated RBC % 4.4, Sodium 144, Potassium 4.1, Chloride 104, Carbon Dioxide 34.0 H, Anion Gap 6, BUN 96 H, Creatinine 2.25 H, Estim Creat Clear Calc 34.43, Est GFR (MDRD) Af Amer 37 L, Est GFR (MDRD) Non-Af 31 L, BUN/Creatinine Ratio 42.7 H, Glucose 211 H, Calcium 8.1 L, Phosphorus 4.1, Magnesium 2.1, Total Bilirubin 0.60, AST 11 L, ALT 18, Alkaline Phosphatase 61, Lactate Dehydrogenase 232, Total Protein 5.3 L, Albumin 2.9 L, Globulin 2.4, Albumin/Globulin Ratio 1.2 03/17/23 06:21: POC Glucose 172 H 03/17/23 06:45: Procalcitonin 0.28 H 03/17/23 09:25: MRSA (PCR) Negative 03/17/23 11:22: Hgb 8.7 L, Hct 27.0 L 03/17/23 12:19: POC Glucose 32 L* 03/17/23 12:22: POC Glucose 34 L* 03/17/23 12:26: POC Glucose 39 L* 03/17/23 13:02: POC Glucose 126 H Micro: Microbiology 03/16/23 14:40 Urine, Catheterized Urine Culture - Preliminary Mixed Gram Positive Organisms 03/16/23 14:40 Mucosa - Nose SARS-CoV-2, Influenza & RSV (PCR) - Final 03/16/23 14:40 Stool Stool Occult Blood ([facility]) - Final Occult Blood Positive ABG Data ABG results: ABG 03/16/23 20:22 Specimen Type ART Sample Site R Radial pH 7.40 Bicarbonate Actual 30.2 H Total CO2 32 Base Excess 5 H O2 Saturation 97 O2 % 4.0 ABG pCO2 48.9 H ABG pO2 97 Thompson Test Positive O2 Delivery Device Cannula Vent Mode Not entered Rhythm Strip Rhythm Strip: A-fib Rate: 69 Ectopy: None Imagaing Radiology Impression Echocardiogram 03/16/23 15:24 Interpretation Summary Normal LV size. The left ventricular ejection fraction is 35 %. There is moderate global hypokinesis of the left ventricle. Contrast injection was performed. Ordering Physician: Nadira Ricks Referring Physician: Donna Will M.D. Performed By: Nathan Correa RCS Assessment & Plan Assessment/Plan (1) Acute anemia: (2) Hypotension: (3) Fall: (4) Fatigue: (5) Hyperglycemia: (6) Pleural effusion on right: (7) LUIS (acute kidney injury): (8) Hemorrhagic shock: (9) Acute lactic acidosis: (10) Leukocytosis: (11) Elevated troponin I level: PLAN: Plan Acute hemorrhagic shock -This is the cause of his hypotension -Hemoglobin is 5.0 --> he was transfused 3 units packed red blood cells -The plan is to perform endoscopy tomorrow Acute on chronic anemia -Baseline hemoglobin appears to run between 7.0 and 8.0 -Recent admission 03/03/2023 through 03/06/2023 had 2 units of packed red blood cells and hemoglobin was 10.0 on discharge -Hemoglobin down to 5.0 --> he was transfused 3 units packed red blood cells Acute GI bleed -Patient with grossly bloody stools -Cycle hemoglobin as noted above -Transfuse 3 units packed red blood cells -Octreotide drip -Protonix IV push 40 mg twice daily -Hold home Eliquis -Hold home aspirin Charges/Coding Visit Charges Inpatient E&M: 36671 Init Hosp L3
[2023-03-17 18:51] LABS: Bedside Glucose 54 mg/dL (74-106)
[2023-03-17] MEDS: Dext 5%-0.45% NS 1,000 ML 50 ML IV (19:35)
[2023-03-17 23:19] LABS: Bedside Glucose 113 mg/dL (74-106)
[2023-03-18] VITALS (29 sets, daily range): BP systolic 94–118; BP diastolic 42–80; PULSE 62–73; RESP 16–25; TEMP 36.1–36.9; O2SAT 93–100; BMI 29.3
[2023-03-18 03:14] LABS: Bedside Glucose 158 mg/dL (74-106)
[2023-03-18] MEDS: Menthol/Lanolin/Calamine/Znox 113 GM Tube 1 APPLIC TOPICAL ×3 (05:31→21:36)
[2023-03-18] MEDS: Piperacil/Tazobactam 3.375 GM in 0.9% Normal Saline (50mL MB+) 50 ML IV ×3 (05:31→21:40)
[2023-03-18] MEDS: Insulin Lispro 100 UNIT/ML INSULN.PEN SC ×3 (05:34→22:43)
--- NOTE | 2023-03-18 06:48 | PCM.PN.INT ---
Assessment & Plan Assessment/Plan (1) Acute upper GI bleed: PLAN: Plan RECOMMENDATIONS: 1. Continue to monitor H&H. Transfuse if hemoglobin drops below 7 g/dL. 2. Continue octreotide and PPI therapy. Tentative plans for EGD today. 3. Start scheduled Atrovent and Pulmicort. 4. Continue amiodarone as ordered. 5. Wean supplemental oxygen to maintain saturations at or above 90%. 6. Continue empiric antibiotics. 7. Proceed with ultrasound-guided thoracentesis. IMPRESSIONS: 1. 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 The patient subsequently responded clinically to transfusion of blood products with stabilization and hemodynamic status. The patient was previously on Eliquis, but had the medication discontinued due to bleeding related issues. He currently has an IVC filter in place. For reasons that are not entirely clear, the patient's Eliquis was restarted after his last hospitalization. Recommend discontinuing Eliquis completely. Continue octreotide and PPI therapy as ordered. Gastroenterology is following with tentative plans for EGD today. 2. Bilateral pleural effusions CT imaging of the chest demonstrated bilateral pleural effusions, right greater than left with an associated right lower lobe consolidation. As such, the patient will be continued on empiric antibiotics. There are tentative plans for ultrasound-guided thoracentesis. 3. Chronic hypoxemic respiratory failure/COPD The patient has a known history of COPD and a baseline oxygen requirement of 4 L/min. Recommend continuing scheduled aerosol treatments while admitted to the hospital. 4. Troponin elevation Most likely secondary to demand ischemia in the setting #1. Echocardiogram did reveal moderate global hypokinesis of the LV with an ejection fraction of 35%. 5. Acute on chronic kidney disease Most likely prerenal in etiology in the setting of #1. Anticipate improvement with stabilization of blood counts and hemodynamic status. Continue to monitor urine output. No current indication for renal replacement therapy. 6. History of diabetes mellitus/generalized weakness/coronary artery disease/BPH/history of VTE/atrial fibrillation Complicates care, management, recovery and prognosis. Continue supportive care as outlined above. The patient will require eventual physical therapy evaluation once medically stabilized. This note was generated with Phylogyation software. It may contain incorrect words, spelling, and punctuation that were not noted in checking the note before signing. Subjective Subjective The patient was seen and examined at the bedside this morning. Events from the last 24 hours have been reviewed. The patient is currently afebrile, hemodynamically stable and maintaining appropriate oxygen saturations on his baseline 4 L/min via nasal cannula. The patient remains on amiodarone infusion after developing atrial fibrillation with RVR yesterday. He is currently scheduled to undergo thoracentesis and EGD today. Hemoglobin is stable at 8.3 g/dL. Creatinine is stable at 2.23. Objective Data Objective Data The patient's most recent lab work, culture data and imaging studies have all been personally reviewed. Surface echocardiogram demonstrated an ejection fraction of 35% with moderate global hypokinesis of the LV. COVID, influenza and RSV PCR negative. Blood and urine cultures are pending. Vital Signs: Vital Signs Temp Pulse Resp BP Pulse Ox O2 Del Method O2 Flow Rate 97.6 F L 67 22 H 118/57 L 95 Nasal Cannula 4 03/18/23 05:00 03/18/23 06:00 03/18/23 06:00 03/18/23 06:00 03/18/23 06:00 03/18/23 06:00 03/18/23 06:00 Oxygen Flow Rate (L/min) 4 Oxygen Delivery Method Nasal Cannula Weight: 210 lb 8.663 oz Body Mass Index (BMI) 29.3 Intake & Output: Intake and Output for Last 24 Hours 03/16/23 03/17/23 03/18/23 23:59 23:59 23:59 Intake Total 367.90 / 380.88 1383.64 / 1383.64 50 / 50 Output Total 850 / 850 1750 / 1750 300 / 300 Balance -482.10 / -469.12 -366.36 / -366.36 -250 / -250 Lab / Micro Data Attestation: I reviewed the patient's lab results. 03/18/23 05:40 03/18/23 05:40 Labs: Laboratory Results - last 24 hr 03/16/23 14:00: Diff Path Review Reviewed, Crossmatch See Detail 03/17/23 03:05: B-Natriuretic Peptide 650.8 H 03/17/23 05:04: POC Glucose 158 H 03/17/23 06:45: Procalcitonin 0.28 H 03/17/23 09:25: MRSA (PCR) Negative 03/17/23 11:22: Hgb 8.7 L, Hct 27.0 L 03/17/23 12:19: POC Glucose 32 L* 03/17/23 12:22: POC Glucose 34 L* 03/17/23 12:26: POC Glucose 39 L* 03/17/23 13:02: POC Glucose 126 H 03/17/23 18:32: POC Glucose 54 L 03/17/23 22:58: POC Glucose 113 H Micro: Microbiology 03/16/23 14:40 Urine, Catheterized Urine Culture - Preliminary Mixed Gram Positive Organisms 03/16/23 14:40 Mucosa - Nose SARS-CoV-2, Influenza & RSV (PCR) - Final 03/16/23 14:40 Stool Stool Occult Blood ([facility]) - Final Occult Blood Positive Radiography Diagnostic Testing: Radiology Impression Echocardiogram 03/16/23 15:24 Interpretation Summary Normal LV size. The left ventricular ejection fraction is 35 %. There is moderate global hypokinesis of the left ventricle. Contrast injection was performed. Ordering Physician: Nadira Ricks Referring Physician: Donna Will M.D. Performed By: Nathan Correa RCS Rhythm Strip Rhythm Strip: A-fib Rate: 69 Ectopy: None Physical Exam Const alert and no apparent distress General Appearance: cooperative HEENT normocephalic and head/scalp atraumatic Eyes PERRL, EOMs intact bilaterally and conjunctivae normal Neck supple General: trachea midline Chest inspection of chest normal Resp normal respiratory effort Auscultation: diminished lung sounds; Negative for rales, rhonchi or wheezes Cardio regular rate, S1 normal heart sound and S2 normal heart sound Rhythm: abnormal rhythm Heart Sounds: murmur GI normal to inspection, nondistended, normoactive bowel sounds Extremity General Extremity: edema; Negative for clubbing Skin no rashes or lesions noted Neuro CN's II-XII intact bilaterally, moves all extremities and no focal motor deficits Psych Mood & Affect: flat affect Charges/Coding Visit Charges Inpatient E&M: 20552 Subs Hosp L3
[2023-03-18 07:11] LABS: Absolute Lymphocyte Count 1.45 X10^3/uL (0.83-4.51); Absolute Neutrophil Count 13.1 X10^3/uL (2.0-7.7); Basophil# 0.04 X10^3/uL; Basophil% 0.2 % (0-1); Eosinophil# 0.44 X10^3/uL; Eosinophils% 2.7 % (0-5); Hematocrit 26.9 % (40-54); Hemoglobin 8.3 g/dL (13.0-16.5); Lymphocyte # 1.45 X10^3/ul (0.83-4.51); Lymphocyte % 8.9 % (19-41); Mean Corp Hgb Conc 30.9 g/dL (32-36); Mean Corpuscular Hgb 29.7 pg (27.0-32.0); Mean Corpuscular Volume 96.4 fL (80-94); Mean Platelet Vol. 11.6 fl (6.2-12.0); Monocyte# 1.02 X10^3/uL; Monocyte% 6.2 % (0-10); NRBC Flagged by Analyzer 1.2 % (0-5); Neutrophil # 13.09 X10^3/uL (2.7-7.7); Neutrophil % 80.2 % (47-70); Platelet Count 190 K/mm3 (150-450); RBC Distribution Width CV 19.5 % (11.6-14.6); RBC Distribution Width SD 60.2 fl (35.1-43.9); Red Blood Count 2.79 M/mm3 (4.6-6.2); White Blood Count 16.3 K/mm3 (4.4-11.0)
[2023-03-18] MEDS: Ipratropium 0.5 MG/2.5 ML SOLUTION INHALATION ×3 (07:16→19:02)
[2023-03-18] MEDS: Budesonide Respules 0.5 MG/2 ML AMPUL.NEB. INHALATION ×2 (07:16→19:02)
[2023-03-18 07:27] LABS: Anion Gap 4 (5-15); BUN 80 mg/dL (7-18); BUN/Creat Ratio 35.9 RATIO (10-20); Calcium,Total 8.1 mg/dL (8.5-10.1); Chloride 105 mmol/L (98-107); Creatinine, Serum 2.23 mg/dL (0.70-1.30); EST Glomerular Filtration Rate 31 mL/min (>60); Est Glom Filt Rate - Afr Amer 37 mL/min (>60); Estimated Creatinine Clearance 34.79 ml/min; Glucose 211 mg/dL (74-106); Potassium 4.1 mmol/L (3.5-5.1); Sodium Level 142 mmol/L (136-145)
[2023-03-18] MEDS: Octreotide 0.5 MG in Dextrose 5%-Water (250mL Bag) 249 ML 25 MG CONT INF (09:31)
[2023-03-18] MEDS: Amiodarone 360 MG in Dextrose 5% Viaflo Bag 192.8 ML 16.6999999999999993 MG CONT INF (09:31)
[2023-03-18] MEDS: Pantoprazole Sodium 40 MG in 0.9% Normal Saline (100mL MB+) 100 ML 330 MG IV (09:40)
[2023-03-18 10:03] LABS: Bedside Glucose 180 mg/dL (74-106)
--- NOTE | 2023-03-18 10:15 | NURSING ---
Pt taken to endo via endoscopy staff. Amio, sandostatin infusing. D5.45NS paused at this time, NS at KVO for procedure.
--- NOTE | 2023-03-18 12:39 | OP.CCLET_ITS ---
03/18/2023 Donna Will [facility] [address] [place] [address] Re : Upper GI endoscopy procedure for Jaydon Quintana Dear Dr. Will This procedure was performed on Saturday, March 18, 2023. My impressions and recommendations are as follows: Impressions : - Normal esophagus. - Normal stomach. 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 Treated with a heater probe. - Two non-bleeding angiodysplastic lesions in the jejunum. Treated with argon plasma coagulation (APC). 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 Recommendations : - Resume previous diet. - Continue present medications. - Return patient to ICU for ongoing care. My findings are described in the full procedure note, which is enclosed. If I can be of further assistance, please feel free to contact me at . Sincerely, Khai Galeana, 03/18/2023 12:38:56 PM This report has been signed electronically.
--- NOTE | 2023-03-18 12:39 | OP.EGD_ITS ---
Patient Name: Jaydon Quintana Procedure Date: 03/18/2023 11:43 AM Date of : 1950 Age: 72 Procedure: Upper GI endoscopy Indications: Iron deficiency anemia, Melena Providers: Khai Galeana DO Medicines: Monitored Anesthesia Care Patient Profile: This is a 72 year old male. Refer to note in patient chart for documentation of history and physical. Patient has symptoms of acute dyspepsia and acute nausea. Complications: No immediate complications. Procedure: Pre-Anesthesia Assessment: - Prior to the procedure, a History and Physical was performed, and patient medications and allergies were reviewed. The patient is competent. The risks and benefits of the procedure and the sedation options and risks were discussed with the patient. All questions were answered and informed consent was obtained. Patient identification and proposed procedure were verified by the physician in the pre-procedure area. Mental Status Examination: alert and oriented. Respiratory Examination: clear to auscultation. CV Examination: normal. Prophylactic Antibiotics: The patient requires prophylactic antibiotics. Prior Anticoagulants: The patient has taken no anticoagulant or antiplatelet agents. ASA Grade Assessment: III - A patient with severe systemic disease. After reviewing the risks and benefits, the patient was deemed in satisfactory condition to undergo the procedure. The anesthesia plan was to use monitored anesthesia care (MAC). Immediately prior to administration of medications, the patient was re-assessed for adequacy to receive sedatives. The heart rate, respiratory rate, oxygen saturations, blood pressure, adequacy of pulmonary ventilation, and response to care were monitored throughout the procedure. The physical status of the patient was re-assessed after the procedure. After obtaining informed consent, the endoscope was passed under direct vision. Throughout the procedure, the patient's blood pressure, pulse, and oxygen saturations were monitored continuously. The gastroscope was introduced through the mouth, and advanced to the third part of duodenum. The upper GI endoscopy was accomplished without difficulty. The patient tolerated the procedure well. Scope In: 12:26:34 PM Scope Out: 12:32:50 PM Total Procedure Duration Time 0 hours 6 minutes 16 seconds Findings: The examined esophagus was normal. The entire examined stomach was normal. Four 3 mm angiodysplastic lesions with bleeding were found in the second portion of the duodenum, in the third portion of the duodenum and in the fourth portion of the duodenum. Coagulation for hemostasis using heater probe was successful. Estimated blood loss was minimal. Two 5 mm angiodysplastic lesions without bleeding were found in the jejunum. Coagulation for bleeding prevention using argon plasma at 0.3 liters/minute and 20 campbell was successful. Estimated blood loss was minimal. Impression: - Normal esophagus. - Normal stomach. 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 Treated with a heater probe. - Two non-bleeding angiodysplastic lesions in the jejunum. Treated with argon plasma coagulation (APC). 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 Recommendation: - Resume previous diet. - Continue present medications. - Return patient to ICU for ongoing care. Procedure Code(s): --- Professional --- 61022, Esophagogastroduodenoscopy, flexible, transoral; with control of bleeding, any method CPT copyright 2021 [employer]. All rights reserved. The codes documented in this report are preliminary and upon prime broker review may be revised to meet current compliance requirements. Khai Galeana DO 03/18/2023 12:38:56 PM This report has been signed electronically. Number of Addenda: 0 Note Initiated On: 03/18/2023 11:43 AM
[2023-03-18] MEDS: Lidocaine 2% (20 ml mdv) 20 ML Vial INFILT (14:18)
--- NOTE | 2023-03-18 14:20 | FLU_PTH ---
PATHOLOGY RESULTS PATIENT: SAL ALONZO Jr. LOC: [facility] U#:[id number] AGE/SX: 72/M ROOM: [facility] RE03/16/[address]: Dr. Clive Sharp MD : 1950 BED: 1 DIS: 03/21/2023 SPEC #: [id number] RECD: 03/18/23 14:35 STATUS: MICHELLE REQ #: [id number] SURY: 03/18/23 14:[address]: Clive Sharp DEPT: CYTOLOGY RECD BY: Jayne Gold ENTERED: 03/19/23 08:26 SP TYPE: Fluid OTHR DR: MD Dr. Alexi Thorpe MD Dr. Derek Brown, DO Dr. Gautam Baskaran, MD Dr. Yordanos Habtegebriel, MD Dr. Hemant Dand, MD Dr. Kimber Foust, MD Dr. Kathryn Lee, DO Dr. Lamia Aljundi, MD Dr. Loren Kirchner, MD Dr. Pavan Irukulla, MD Dr. Saad Farooqi, MD Dr. Vikram Anand, MD Dr. William Haden, MD Tissues: THORACIC FLUID Procedures: Special Stain Group II Surgery Specimen Level IV Cytospin Fluid HEADER OPERATION: Ultrasound-guided thoracentesis PRE-OP DIAGNOSIS: Right pleural effusion TISSUE SUBMITTED: Thoracentesis fluid for cytology DIAGNOSIS CYTOLOGY Thoracentesis fluid for cytology (cytospin and cell block): Negative for malignant cells. See comment. AM:mirtha 03/20/2023 COMMENT Immunohistochemistry ([id number]) supports the above diagnosis. CYTOLOGY STUDY Slides are reviewed. CYTOLOGY GROSS Received is 85 ml of dark yellow cloudy fluid labeled with the patient's name and and designated per the requisition as thoracentesis. Submitted for cytology preparation including cell block. / mirtha 03/19/2023 TC:5 CPT: 99431, 59519, 44644
--- NOTE | 2023-03-18 14:27 | RAD_ITS ---
STUDY: X-RAY CHEST REASON FOR EXAM: Male, 72 years old. Post thoracentesis TECHNIQUE: AP inspiration and expiration views. COMPARISON: Comparison is made with prior study dated March 16, 2023. FINDINGS: The patient is status post right thoracentesis. Mild residual changes persist at the right lung base. Persistent pleural-parenchymal changes at the left lung base. Sternal cerclage wires and vascular clips are present from a prior sternotomy and coronary artery bypass graft procedure (CABG). Normal mediastinum and sho. Normal visualized pulmonary arteries. Normal visualized aortic arch and descending thoracic aorta. There are degenerative changes of the visualized thoracic spine. Normal visualized ribs, clavicles, and shoulders. There is no demonstrated abnormality of the visualized soft tissue structures of the upper abdomen. RAD/Chest Insp/Exp 2 View IMPRESSION: Status post right thoracentesis. No evidence of pneumothorax. Electronically Signed: Brett Fontanez MD at 14:39 EST ,
--- NOTE | 2023-03-18 14:30 | CASEMGMT ---
TARAH CM chart review: Patient was admitted 03/03-03/06/23 for anemia, hypoxia. See CM notes from previous visit. Patient was discharged to home with [facility] and increase with home oxygen through [employer] for 4lpm at rest and 5lpm with ambulation. Patient returned 03/16/23 for general illness and admitted for Severe Acute on chronic anemia, GI Bleed. Hgb was 5.0 on admission. Patient's Hgb at discharge on 03/06 was 10. Patient was discharged on Eliquis for Afib. Patient is out of room for procedure and unable to discuss discharge needs. CM will continue to follow this patient and plan for a safe discharge.
--- NOTE | 2023-03-18 14:32 | PCM.OP.PRO ---
Procedure Report Date of Procedure: 03/18/23 Assessment & Plan Assessment/Plan (1) Pleural effusion on right: PLAN: PROCEDURE: Ultrasound Guided Thoracentesis ORDERING PROVIDER: Dr. Nadira Ricks INDICATION: Male, 72 years old. Right pleural effusion. PROVIDER: TRAVIS Akhtar PROCEDURE: The risks, benefits, and alternatives to the procedure were explained to the patient. The specific risks of bleeding, infection, and pneumothorax requiring chest tube insertion were discussed and accepted. Written informed consent was obtained. The patient was placed in the sitting, upright position. Ultrasonographic evaluation of the bilateral lower pleural spaces was carried out. An adequate pocket was identified in the right lower pleural space.The overlying skin was prepped and draped in sterile fashion. 2% lidocaine was administered subcutaneously for local anesthesia. Under ultrasound guidance, a 5-Northern Irish thoracentesis needle/catheter system was advanced into the right posterior lower pleural fluid collection. 980 ml of light yellow colored fluid was drained. 100 and mL of this fluid was sent to the laboratory for analysis. The catheter was removed, and a sterile dressing was applied. The patient tolerated the procedure well. A chest x-ray was ordered. IMPRESSION: Successful ultrasound-guided thoracentesis of right pleural effusion. Procedures Radiology Radiology US Procedures: [id number] Thoracentesis
[2023-03-18 14:43] LABS: Cytology, Body Fluid / CSF SEE PATHOLOGY REPORT
[2023-03-18 14:59] LABS: Body Fluid Mononuclear WBC # 0.143 10^3/uL; Body Fluid Mononuclear WBC % 65.6 %; Body Fluid Polynuclear WBC # 0.075 10^3/uL; Body Fluid Polynuclear WBC % 34.4 %; Body Fluid Total Cells Counted 0.257 10^3/ul; White Blood Count/Body Fluid 0.218 10^3/uL
--- NOTE | 2023-03-18 14:59 | PN.HOSP_ITS ---
Reason for Visit Reason for Visit: Diagnoses Anemia, unspecified (03/16/23) Elevated white blood cell count, unspecified (03/16/23) Acute metabolic acidosis (03/16/23) Hypotension, unspecified (03/16/23) Pleural effusion, not elsewhere classified (03/16/23) Gastrointestinal hemorrhage, unspecified (03/16/23) Acute kidney failure, unspecified (03/16/23) Other fatigue (03/16/23) Other shock (03/16/23) Hyperglycemia, unspecified (03/16/23) Other specified abnormal findings of blood chemistry (03/16/23) Unspecified fall, initial encounter (03/16/23) Objective Data Objective Data Vital Signs: Vital Signs Temp Pulse Resp BP Pulse Ox O2 Del Method O2 Flow Rate 98.0 F 67 20 H 101/55 L 95 Nasal Cannula 4 03/18/23 14:49 03/18/23 14:49 03/18/23 14:49 03/18/23 14:49 03/18/23 14:49 03/18/23 14:49 03/18/23 14:49 Oxygen Flow Rate (L/min) 4 Oxygen Delivery Method Nasal Cannula Weight: 210 lb 8.663 oz Body Mass Index (BMI) 29.3 Intake & Output: Intake and Output for Last 24 Hours 03/16/23 03/17/23 03/18/23 23:59 23:59 23:59 Intake Total 367.90 / 380.88 1383.64 / 1383.64 1507.62 / 1507.62 Output Total 850 / 850 1750 / 1750 1880 / 1880 Balance -482.10 / -469.12 -366.36 / -366.36 -372.38 / -372.38 Lab / Micro Data 03/18/23 05:40 03/18/23 05:40 Labs: Laboratory Results - last 24 hr 03/17/23 05:04: POC Glucose 158 H 03/17/23 18:32: POC Glucose 54 L 03/17/23 22:58: POC Glucose 113 H 03/18/23 05:40: WBC 16.3 H, RBC 2.79 L, Hgb 8.3 L, Hct 26.9 L, MCV 96.4 H, MCH 29.7, MCHC 30.9 L, RDW Std Deviation 60.2 H, RDW Coeff of Rafael 19.5 H, Plt Count 190, MPV 11.6, Immature Gran % (Auto) 1.800 H, Neut % (Auto) 80.2 H, Lymph % (Auto) 8.9 L, Valley % (Auto) 6.2, Eos % (Auto) 2.7, Baso % (Auto) 0.2, Absolute Neuts (auto) 13.1 H, Absolute Lymphs (auto) 1.45, Nucleated RBC % 1.2, Sodium 142, Potassium 4.1, Chloride 105, Carbon Dioxide 33.0 H, Anion Gap 4 L, BUN 80 H , Creatinine 2.23 H, Estim Creat Clear Calc 34.79, Est GFR (MDRD) Af Amer 37 L, Est GFR (MDRD) Non-Af 31 L, BUN/Creatinine Ratio 35.9 H, Glucose 211 H, Calcium 8.1 L 03/18/23 09:37: POC Glucose 180 H Micro: Microbiology 03/16/23 14:11 Blood Culture (Wb) - Anticubital Right Blood Culture - Preliminary No growth in 48 hours. 03/16/23 15:00 Blood Culture (Wb) - Other Blood Culture - Preliminary No growth in 48 hours. 03/16/23 14:40 Urine, Catheterized Urine Culture - Final Mixed Gram Positive Organisms 03/16/23 14:40 Mucosa - Nose SARS-CoV-2, Influenza & RSV (PCR) - Final 03/16/23 14:40 Stool Stool Occult Blood (FOREST) - Final Occult Blood Positive Radiography Diagnostic Testing: Radiology Impression Echocardiogram 03/16/23 15:24 Interpretation Summary Normal LV size. The left ventricular ejection fraction is 35 %. There is moderate global hypokinesis of the left ventricle. Contrast injection was performed. Ordering Physician: Nadira Ricks Referring Physician: Donna Will M.D. Performed By: Nathan Correa RCS Chest X-Ray 03/18/23 14:27 IMPRESSION: Status post right thoracentesis. No evidence of pneumothorax. Electronically Signed: Brett Fontanez MD at 14:39 EST , Rhythm Strip Rhythm Strip: A-fib Rate: 69 Ectopy: None Physical Exam Narrative Seen and examined. Patient is awake and feels better. Still in A-fib but heart rate controlled. Patient underwent EGD and thoracocentesis today. On amnio drip. Physical exam General: Alert, Oriented x3, Cooperative HEENT: Atraumatic, PERRLA, EOMI, Normocephalic Oral: No Gingival or Mucosal Lesions/ Ulcerations Neck: Supple, No JVD, Negative Carotid Bruits Lungs: Air entry diminished in bilateral lung bases. No crepitation/rhonchi. On 4 L of oxygen. Cardiovascular: A-fib. No murmur. Irregular heartbeat Abdomen: Bowel Sounds Present, Soft, Non Tender, Non-Distended : No renal angle tenderness. No suprapubic tenderness. Extremities: Mild bilateral ankle edema. Capillary Refill Less than 3 Seconds Skin: No rashes, No breakdown Musculoskeletal: No Tenderness to Palpation of Joints or Extremities Neurological: Cranial nerves II-XII grossly intact, DTR 2+/4. No acute focal neurological deficit. Psych/Mental Status: Flat affect. Assessment & Plan Assessment/Plan (1) Acute anemia: (2) Hypotension: (3) Fall: (4) Fatigue: (5) Hyperglycemia: (6) Pleural effusion on right: (7) LUIS (acute kidney injury): (8) Hemorrhagic shock: (9) Acute lactic acidosis: (10) Leukocytosis: (11) Elevated troponin I level: PLAN: Plan 72-year-old male was admitted through ER after he fell backward in the bathroom and hit his head. Patient was very fatigued with chronic leg edema and black stool/melena. Patient was found hypotensive in shock in ED. Patient was found severely anemic 5.0, platelet count 256 and had 3 units of PRBC transfusion. Acute hemorrhagic shock due to upper GI bleed -This is the cause of his hypotension -Hemoglobin is 5.0. No metabolic acidosis noted on VBG but lactate is up at 4.5. Leukocytosis, suspected reactive from steroid use and acute GI bleed. Sepsis ruled out. Last hemoglobin 8.7, increased from 5.0. -IV fluids running until packed red blood cells but can be given -If pressure does not improve may need pressor -Hold home medications that can drop blood pressure 03/18 H&H 8.3/27%. Platelet count 190,000. Blood pressure systolic 100. Improving. 2D echo was done which shows EF 35% with moderate global hypokinesis of LV. Consistent with chronic heart failure. Previous echo shows EF 40% in November 16 therefore consistent with chronic systolic heart failure Acute on chronic anemia -Baseline hemoglobin appears to run between 7.0 and 8.0. -Recent admission 03/03/2023 through 03/06/2023 had 2 units of packed red blood cells and hemoglobin was 10.0 on discharge -Patient is on iron at baseline and follows as an outpatient with hematology Acute GI bleed -Patient with grossly bloody stools -Cycle hemoglobin as noted above -Transfuse 3 units packed red blood cells - 03/18: Impressions : - Normal esophagus. - Normal stomach. 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 Treated with a heater probe. - Two non-bleeding angiodysplastic lesions in the jejunum. Treated with argon plasma coagulation (APC). Recommendation: Full liquid to soft diet advance as per tolerated. Discontinue IV octreotide. Protonix 40 mg oral twice daily. Troponin elevation -Troponin elevation at greater than 400 on admission -Suspect type II NSTEMI due to demand ischemia with severe anemia from acute myocardial injury -Patient is not a cardiac catheterization candidate at this point due to his GI bleeding - Bilateral pleural effusion right more than left. Patient had 980 mL of light yellow fluid drained from right posterior lower pleural fluid. LUIS on CKD stage IIIb -Baseline serum creatinine is between 1.5 and 1.8 -Current serum creatinine is 2.64 -Suspect related to hypotension and acute blood loss -Hold diuretics -Blood transfusion as ordered -Continue IV fluids until blood can be initiated -Hold home Flomax -Place Ball -No further workup at this time however if creatinine does not improve with transfusion may need to pursue further workup and possible nephrology consultation DM-2 with hyperglycemia -Patient severely hyperglycemic on admission -Obtaining a hemoglobin A1c would be futile due to his severe anemia and transfusion being initiated -Blood sugars have been up and patient has been on steroids lately -Will give NPH 15 units x 1 dose -Start Lantus at nightly 15 units -High-dose SSI every 6 hours and hold off scheduled log at this time to see what blood sugars and see what blood sugars run with basal insulin and sliding scale -Clear liquid diet for tonight and n.p.o. after midnight -When oral diet can be reinitiated would recommend cardiac/carb control at 1800 kcal Right pleural effusion -Appears to be quite large on chest x-ray -CT chest pending -Will obtain thoracentesis if patient agreeable and effusion seems sizable when compared to previous imaging -If Thora needed will send studies on fluid Debility/fall/generalized weakness/fatigue -Acute issues likely related to acute anemia and hypotension -PT/OT consultation -Social work/case management consultation for assistance with discharge planning -Imaging done for fall shows no fracture or acute findings on presentation Chronic hypoxic respiratory failure secondary to COPD -Patient's baseline oxygen is 4 L nasal cannula -Remains on 4 L nasal cannula with good oxygen saturations -Chest x-ray is stable -Continue as needed albuterol -Continued inhaled budesonide -Hold Lasix for now -Continue home guaifenesin -Continue home ipratropium as needed History of GI bleed/GERD -Hold home oral Protonix -IV Protonix -Previous scope in 2021 showed angiodysplastic lesions in the stomach and duodenum -Patient also has previously had a positive capsule endoscopy CAD/HTN/HPL -Patient with previous PCI to LAD and RCA as well as mid circumflex lesions remotely -Hold home antihypertensives due to hypotension on presentation -Hold home aspirin due to GI bleed -Okay to continue atorvastatin BPH with obstruction -Continue Proscar -Hold Flomax due to this potentially causing blood pressure drops to be alpha blockade History of VTE/PE -Patient had been off anticoagulation but this was restarted after last discharge -Patient does have an IVC filter that was placed in 2001 -[employer] REPA[employer]ER was diagnosed when patient had COVID-19 infection Atrial fibrillation -Was diagnosed as new during last hospitalization -Currently in rate controlled atrial fibrillation -Hold home metoprolol for now due to severe hypotension on presentation -Will restart if blood pressure improves with blood -Discontinue apixaban that was started -patient has now proven that he cannot be on anticoagulation and will discontinue Eliquis indefinitely -Monitor on telemetry History of Hodgkin lymphoma status post ABVD and radiation 2000 -Remote -No current issues -Follows as outpatient with oncology History of rheumatoid arthritis -Patient was previously treated with Biologics however is not currently on any -Continue outpatient follow-up Depression -Continue home mirtazapine -Continue home Lexapro DVT prophylaxis -SCDs -Chemoprophylaxis contraindicated due to GI bleeding and severe anemia on pre sentation CODE STATUS -Full code as per discussion prior to admission with patient and family however son is going to arrive soon and they will have further discussion so CODE STATUS could potentially change within the next 24 hours. PRBC transfusion Charges/Coding Visit Charges Inpatient E&M: 60882 Subs Hosp L2
[2023-03-18 15:47] LABS: Red Cell Count/Body Fluid 35 /mm3
[2023-03-18] MEDS: Amiodarone 200 MG Tablet PO ×2 (16:36→21:38)
[2023-03-18] MEDS: Ferrous Sulfate 325 MG Tablet PO (16:37)
[2023-03-18 17:03] LABS: Bedside Glucose 217 mg/dL (74-106)
[2023-03-18 17:07] LABS: Glucose, Body Fluid 196 mg/dL (40-70); LDH,Body Fluid 61 Units/L (Not Establ.); Protein, Body Fluid 1.1 g/dL (Not Establ.)
[2023-03-18 17:09] LABS: Auto B Fluid Analyzer BKGD Ct COUNTS W/IN LIMITS (W/IN LIMITS)
[2023-03-18 17:10] LABS: Appearance/Body Fluid CLEAR; Color/Body Fluid YELLOW; Lymphocytes 19 %; Neutrophil (Segs) 60 %; Source- Body Fluid THORACENTESIS
[2023-03-18 17:11] LABS: Mesothelial Cells 0 %; Monocytes 20 %
[2023-03-18 17:12] LABS: Body Fluid QC Type(s) BF1Q; Other Cell Type/BF 1 %
[2023-03-18] MEDS: Pantoprazole Sodium 40 MG Tablet PO (21:38)
[2023-03-18] MEDS: Atorvastatin Calcium 20 MG Tablet PO (21:38)
[2023-03-18] MEDS: Mirtazapine 15 MG Tablet 7.5 MG PO (21:39)
[2023-03-18] MEDS: Senna/Docusate Sodium 1 Tablet 2 TABLET PO (21:39)
[2023-03-18] MEDS: guaiFENesin 10 ML UDC (200MG/10ML) 20 ML PO (21:42)
[2023-03-19] VITALS (19 sets, daily range): BP systolic 98–115; BP diastolic 48–73; PULSE 63–81; RESP 10–26; TEMP 36.1–36.9; O2SAT 86–100; BMI 29.7
--- NOTE | 2023-03-19 | IMM_PTH ---
PATHOLOGY RESULTS PATIENT: SAL ALONZO Jr. LOC: [facility] U#:[id number] AGE/SX: 72/M ROOM: [facility] RE03/16/[address]: Dr. Clive Sharp MD : 1950 BED: 1 DIS: 03/21/2023 SPEC #: [id number] RECD: 03/20/23 10:52 STATUS: SOUT REQ #: [id number] SURY: 03/19/23 00:[address]: Clive Sharp DEPT: IMMUNOHISTOCHEMISTRY RECD BY: Loree Dias ENTERED: 03/20/23 10:54 SP TYPE: IMMUNO OTHR DR: MD Dr. Alexi Thorpe MD Dr. Derek Brown, MD Dr. Claudine Sanches Dr., MD Dr. Hemant Dand, MD Dr. Kimber Foust, MD Dr. Kathryn Lee, DO Dr. Lamia Aljundi, MD Dr. Loren Kirchner, MD Dr. Pavan Irukulla, MD Dr. Saad Farooqi, MD Dr. Vikram Anand, MD Dr. William Haden, MD Tissues: THORACIC FLUID Procedures: Anthony Ret (add) CK20 (add) CK5-6 (add) P40 (add) CD68 (ADD) CK7 (initial) PHYSICIAN & INSTITUTION [address] [address] SPECIMEN INFORMATION: Tissue Source: Thoracentesis Fluid Clinical Info: Right pleural effusion Specimen Number: [id number] CPT code: 37064, 58249 x5 METHODOLOGY: Deparaffinized sections of prefer/formalin-fixed tissue or PAP/DQ stained slides are incubated with monoclonal/polyclonal antibodies/oligonucleotide probes. Localization is made via biotin free immunoperoxidase method. Appropriate controls are performed and reacted as expected. Results on target cell population are indicated in the following table: RESULTS: ANTIBODY / CLONE RESULT Block CK7 (OV-TL12/30) positive CK20 (KS20.8) negative CD68 (KP-1) positive CALRET (polyclonal) positive CK5-6 (D5 & 1684) positive P40 (BC28) negative These tests were developed and their performance characteristics determined by [facility]. They may not have been cleared or approved by the U.[place]. Food and Drug Administration. The FDA has determined that such clearance or approval is not necessary. The above immunohistochemical/dualISH markers are ordered and reviewed by the Pathologist. INTERPRETATION: Thoracentesis fluid (cell block): No evidence of malignancy. AM:mirtha 03/21/2023
[2023-03-19 00:40] LABS: Bedside Glucose 192 mg/dL (74-106)
[2023-03-19] MEDS: 0.9% Saline Lock 10 ML Syringe IV (04:57)
[2023-03-19] MEDS: Menthol/Lanolin/Calamine/Znox 113 GM Tube 1 APPLIC TOPICAL ×3 (04:57→22:20)
[2023-03-19] MEDS: Piperacil/Tazobactam 3.375 GM in 0.9% Normal Saline (50mL MB+) 50 ML IV ×3 (04:57→22:18)
[2023-03-19 05:10] LABS: Absolute Lymphocyte Count 1.19 X10^3/uL (0.83-4.51); Absolute Neutrophil Count 7.6 X10^3/uL (2.0-7.7); Basophil# 0.03 X10^3/uL; Basophil% 0.3 % (0-1); Eosinophil# 0.28 X10^3/uL; Eosinophils% 2.8 % (0-5); Hemoglobin 8.6 g/dL (13.0-16.5); Lymphocyte # 1.19 X10^3/ul (0.83-4.51); Lymphocyte % 11.9 % (19-41); Mean Corp Hgb Conc 29.7 g/dL (32-36); Mean Corpuscular Hgb 29.4 pg (27.0-32.0); Mean Platelet Vol. 11.4 fl (6.2-12.0); Monocyte# 0.71 X10^3/uL; Monocyte% 7.1 % (0-10); NRBC Flagged by Analyzer 0.6 % (0-5); Neutrophil # 7.64 X10^3/uL (2.7-7.7); Platelet Count 166 K/mm3 (150-450); RBC Distribution Width CV 19.3 % (11.6-14.6); RBC Distribution Width SD 62.5 fl (35.1-43.9); Red Blood Count 2.93 M/mm3 (4.6-6.2)
[2023-03-19 05:22] LABS: Bedside Glucose 178 mg/dL (74-106)
[2023-03-19 05:26] LABS: Anion Gap 3 (5-15); BUN 74 mg/dL (7-18); BUN/Creat Ratio 30.5 RATIO (10-20); Calcium,Total 7.7 mg/dL (8.5-10.1); Chloride 107 mmol/L (98-107); Creatinine, Serum 2.43 mg/dL (0.70-1.30); EST Glomerular Filtration Rate 28 mL/min (>60); Est Glom Filt Rate - Afr Amer 34 mL/min (>60); Estimated Creatinine Clearance 32.04 ml/min; Glucose 120 mg/dL (74-106); Potassium 4.1 mmol/L (3.5-5.1); Sodium Level 142 mmol/L (136-145)
--- NOTE | 2023-03-19 07:04 | PN.CC_ITS ---
Assessment & Plan Assessment/Plan (1) Acute upper GI bleed: PLAN: Plan RECOMMENDATIONS: 1. Continue to monitor H&H. Transfuse if hemoglobin drops below 7 g/dL. 2. Continue PPI therapy. 3. Start scheduled Atrovent and Pulmicort. 4. Continue amiodarone as ordered. 5. Wean supplemental oxygen to maintain saturations at or above 90%. 6. Continue empiric antibiotics. 7. The patient is medically stable for transfer out of the intensive care unit. IMPRESSIONS: 1. 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 The patient subsequently responded clinically to transfusion of blood products with stabilization and hemodynamic status. The patient was previously on Eliquis, but had the medication discontinued due to bleeding related issues. He currently has an IVC filter in place. For reasons that are not entirely clear, the patient's Eliquis was restarted after his last hospitalization. Recommend discontinuing Eliquis completely. The patient is now status post upper endoscopy with medical intervention performed to bleeding angiodysplastic lesions. Continue to monitor H&H and transfuse if hemoglobin drops below 7 g/dL. 2. Bilateral pleural effusions CT imaging of the chest demonstrated bilateral pleural effusions, right greater than left with an associated right lower lobe consolidation. As such, the patient will be continued on empiric antibiotics. The patient is status post ultrasound-guided thoracentesis with pleural fluid cultures pending. 3. Chronic hypoxemic respiratory failure/COPD The patient has a known history of COPD and a baseline oxygen requirement of 4 L/min. Recommend continuing scheduled aerosol treatments while admitted to the hospital. 4. Troponin elevation Most likely secondary to demand ischemia in the setting #1. Echocardiogram did reveal moderate global hypokinesis of the LV with an ejection fraction of 35%. 5. Acute on chronic kidney disease Most likely prerenal in etiology in the setting of #1. Anticipate improvement with stabilization of blood counts and hemodynamic status. Continue to monitor urine output. No current indication for renal replacement therapy. 6. History of diabetes mellitus/generalized weakness/coronary artery disease/BPH/history of VTE/atrial fibrillation Complicates care, management, recovery and prognosis. Continue supportive care as outlined above. Physical therapy to work with the patient. Continue amiodarone as ordered. This note was generated with Dragon dictation software. It may contain incorrect words, spelling, and punctuation that were not noted in checking the note before signing. Subjective Subjective The patient was seen and examined at the bedside this morning. Events from the last 24 hours have been reviewed. The patient is currently afebrile, hemodynamically stable and maintaining appropriate oxygen saturations on his baseline 4 L/min oxygen requirement. The patient underwent successful ultrasound-guided thoracentesis yesterday with 980 mL of fluid removed from the right hemithorax. Upper endoscopy revealed for bleeding angiodysplastic lesions in the duodenum along with 2 nonbleeding angiodysplastic lesions in the jejunum. Hemoglobin is stable at 8.6 g/dL. Creatinine remains elevated at 2.43. The patient has no specific complaints this morning. Objective Data Objective Data The patient's most recent lab work, culture data and imaging studies have all been personally reviewed. Surface echocardiogram demonstrated an ejection fraction of 35% with moderate global hypokinesis of the LV. COVID, influenza and RSV PCR negative. Blood, urine and pleural fluid cultures are pending. Vital Signs: Vital Signs Temp Pulse Resp BP Pulse Ox O2 Del Method O2 Flow Rate 98.2 F 66 21 H 108/53 L 99 Nasal Cannula 4 03/19/23 04:00 03/19/23 06:00 03/19/23 06:00 03/19/23 06:00 03/19/23 06:00 03/19/23 06:00 03/19/23 06:00 Oxygen Flow Rate (L/min) 4 Oxygen Delivery Method Nasal Cannula Weight: 212 lb 1.355 oz Body Mass Index (BMI) 29.7 Intake & Output: Intake and Output for Last 24 Hours 03/17/23 03/18/23 03/19/23 23:59 23:59 23:59 Intake Total 1383.64 / 1383.64 1825.91 / 1825.91 50 / 50 Output Total 1750 / 1750 2240 / 2355 615 / 615 Balance -366.36 / -366.36 -414.09 / -529.09 -565 / -565 Lab / Micro Data Attestation: I reviewed the patient's lab results. 03/19/23 04:55 03/19/23 04:55 Labs: Laboratory Results - last 24 hr 03/18/23 05:33: POC Glucose 192 H 03/18/23 05:40: WBC 16.3 H, RBC 2.79 L, Hgb 8.3 L, Hct 26.9 L, MCV 96.4 H, MCH 29.7, MCHC 30.9 L, RDW Std Deviation 60.2 H, RDW Coeff of Rafael 19.5 H, Plt Count 190, MPV 11.6, Immature Gran % (Auto) 1.800 H, Neut % (Auto) 80.2 H, Lymph % (Auto) 8.9 L, [place] % (Auto) 6.2, Eos % (Auto) 2.7, Baso % (Auto) 0.2, Absolute Neuts (auto) 13.1 H, Absolute Lymphs (auto) 1.45, Nucleated RBC % 1.2, Sodium 142, Potassium 4.1, Chloride 105, Carbon Dioxide 33.0 H, Anion Gap 4 L, BUN 80 H , Creatinine 2.23 H, Estim Creat Clear Calc 34.79, Est GFR (MDRD) Af Amer 37 L, Est GFR (MDRD) Non-Af 31 L, BUN/Creatinine Ratio 35.9 H, Glucose 211 H, Calcium 8.1 L 03/18/23 09:37: POC Glucose 180 H 03/18/23 14:20: Fluid Source THORACENTESIS, Fluid Color YELLOW, Fluid Appearance CLEAR, Fluid WBC 0.218, Fluid RBC 35, Fluid Tot Cell Count 0.257, Fld Polynuclear WBCs # 0.075, Fld Polynuclear WBCs % 34.4, Fluid Mononuclear WBCs 0.143, Fld Mononuclear WBCs % 65.6, Fluid Neutrophils 60, Fluid Lymphocytes 19, Fluid Monocytes 20, Fld Mesothelial Cells 0, Fluid Other Cells 1, Fl Pathologist Comment May follow, Fluid Glucose 196 H, Fluid Total Protein 1.1, Fluid LDH 61, Fluid Comment 2 SEE COMMENT 03/18/23 16:35: POC Glucose 217 H 03/18/23 22:42: POC Glucose 178 H 03/19/23 04:55: WBC 10.0, RBC 2.93 L, Hgb 8.6 L, Hct 29.0 L, MCV 99.0 H, MCH 2 9.4, MCHC 29.7 L, RDW Std Deviation 62.5 H, RDW Coeff of Rafael 19.3 H, Plt Count 166, MPV 11.4, Immature Gran % (Auto) 1.900 H, Neut % (Auto) 76.0 H, Lymph % (Auto) 11.9 L, [place] % (Auto) 7.1, Eos % (Auto) 2.8, Baso % (Auto) 0.3, Absolute Neuts (auto) 7.6, Absolute Lymphs (auto) 1.19, Nucleated RBC % 0.6, Sodium 142, Potassium 4.1, Chloride 107, Carbon Dioxide 32.0, Anion Gap 3 L, BUN 74 H, Creatinine 2.43 H, Estim Creat Clear Calc 32.04, Est GFR (MDRD) Af Amer 34 L, Est GFR (MDRD) Non-Af 28 L, BUN/Creatinine Ratio 30.5 H, Glucose 120 H, Calcium 7.7 L Micro: Microbiology 03/16/23 14:11 Blood Culture (Wb) - Anticubital Right Blood Culture - Preliminary No growth in 48 hours. 03/16/23 15:00 Blood Culture (Wb) - Other Blood Culture - Preliminary No growth in 48 hours. 03/16/23 14:40 Urine, Catheterized Urine Culture - Final Mixed Gram Positive Organisms 03/16/23 14:40 Mucosa - Nose SARS-CoV-2, Influenza & RSV (PCR) - Final 03/16/23 14:40 Stool Stool Occult Blood ([facility]) - Final Occult Blood Positive Radiography Diagnostic Testing: Radiology Impression Chest X-Ray 03/18/23 14:27 IMPRESSION: Status post right thoracentesis. No evidence of pneumothorax. Electronically Signed: Brett Fontanez MD at 14:39 EST , Rhythm Strip Rhythm Strip: A-fib Rate: 69 Ectopy: None Physical Exam Const alert and no apparent distress General Appearance: cooperative HEENT normocephalic and head/scalp atraumatic Eyes PERRL, EOMs intact bilaterally and conjunctivae normal Neck supple General: trachea midline Chest inspection of chest normal Resp normal respiratory effort Auscultation: diminished lung sounds; Negative for rales, rhonchi or wheezes Cardio regular rate, S1 normal heart sound and S2 normal heart sound Rhythm: abnormal rhythm Heart Sounds: murmur GI normal to inspection, nondistended, normoactive bowel sounds Extremity General Extremity: edema; Negative for clubbing Skin no rashes or lesions noted Neuro CN's II-XII intact bilaterally, moves all extremities and no focal motor deficits Psych Mood & Affect: flat affect Charges/Coding Visit Charges Inpatient E&M: 60073 Subs Hosp L2
[2023-03-19] MEDS: Budesonide Respules 0.5 MG/2 ML AMPUL.NEB. INHALATION ×2 (07:11→19:25)
[2023-03-19] MEDS: Ipratropium 0.5 MG/2.5 ML SOLUTION INHALATION ×3 (07:11→19:25)
--- NOTE | 2023-03-19 07:35 | PCM.PN.HOSP ---
Reason for Visit Reason for Visit: Diagnoses Anemia, unspecified (03/16/23) Elevated white blood cell count, unspecified (03/16/23) Acute metabolic acidosis (03/16/23) Hypotension, unspecified (03/16/23) Pleural effusion, not elsewhere classified (03/16/23) Gastrointestinal hemorrhage, unspecified (03/16/23) Acute kidney failure, unspecified (03/16/23) Other fatigue (03/16/23) Other shock (03/16/23) Hyperglycemia, unspecified (03/16/23) Other specified abnormal findings of blood chemistry (03/16/23) Unspecified fall, initial encounter (03/16/23) Objective Data Objective Data Vital Signs: Vital Signs Temp Pulse Resp BP Pulse Ox O2 Del Method O2 Flow Rate 98.2 F 67 22 H 107/57 L 98 Nasal Cannula 4 03/19/23 04:00 03/19/23 07:12 03/19/23 07:12 03/19/23 07:00 03/19/23 07:12 03/19/23 07:12 03/19/23 07:12 Oxygen Flow Rate (L/min) 4 Oxygen Delivery Method Nasal Cannula Weight: 212 lb 1.355 oz Body Mass Index (BMI) 29.7 Intake & Output: Intake and Output for Last 24 Hours 03/17/23 03/18/23 03/19/23 23:59 23:59 23:59 Intake Total 1383.64 / 1383.64 1825.91 / 1825.91 50 / 50 Output Total 1750 / 1750 2240 / 2355 615 / 615 Balance -366.36 / -366.36 -414.09 / -529.09 -565 / -565 Lab / Micro Data 03/19/23 04:55 03/19/23 04:55 Labs: Laboratory Results - last 24 hr 03/18/23 05:33: POC Glucose 192 H 03/18/23 09:37: POC Glucose 180 H 03/18/23 14:20: Fluid Source THORACENTESIS, Fluid Color YELLOW, Fluid Appearance CLEAR, Fluid WBC 0.218, Fluid RBC 35, Fluid Tot Cell Count 0.257, Fld Polynuclear WBCs # 0.075, Fld Polynuclear WBCs % 34.4, Fluid Mononuclear WBCs 0.143, Fld Mononuclear WBCs % 65.6, Fluid Neutrophils 60, Fluid Lymphocytes 19, Fluid Monocytes 20, Fld Mesothelial Cells 0, Fluid Other Cells 1, Fl Pathologist Comment May follow, Fluid Glucose 196 H, Fluid Total Protein 1.1, Fluid LDH 61, Fluid Comment 2 SEE COMMENT 03/18/23 16:35: POC Glucose 217 H 03/18/23 22:42: POC Glucose 178 H 03/19/23 04:55: WBC 10.0, RBC 2.93 L, Hgb 8.6 L, Hct 29.0 L, MCV 99.0 H, MCH 29.4, MCHC 29.7 L, RDW Std Deviation 62.5 H, RDW Coeff of Rafael 19.3 H, Plt Count 166, MPV 11.4, Immature Gran % (Auto) 1.900 H, Neut % (Auto) 76.0 H, Lymph % (Auto) 11.9 L, [place] % (Auto) 7.1, Eos % (Auto) 2.8, Baso % (Auto) 0.3, Absolute Neuts (auto) 7.6, Absolute Lymphs (auto) 1.19, Nucleated RBC % 0.6, Sodium 142, Potassium 4.1, Chloride 107, Carbon Dioxide 32.0, Anion Gap 3 L, BUN 74 H, Creatinine 2.43 H, Estim Creat Clear Calc 32.04, Est GFR (MDRD) Af Amer 34 L, Est GFR (MDRD) Non-Af 28 L, BUN/Creatinine Ratio 30.5 H, Glucose 120 H, Calcium 7.7 L Micro: Microbiology 03/16/23 14:11 Blood Culture (Wb) - Anticubital Right Blood Culture - Preliminary No growth in 48 hours. 03/16/23 15:00 Blood Culture (Wb) - Other Blood Culture - Preliminary No growth in 48 hours. 03/16/23 14:40 Urine, Catheterized Urine Culture - Final Mixed Gram Positive Organisms 03/16/23 14:40 Mucosa - Nose SARS-CoV-2, Influenza & RSV (PCR) - Final 03/16/23 14:40 Stool Stool Occult Blood ([facility]) - Final Occult Blood Positive Radiography Diagnostic Testing: Radiology Impression Chest X-Ray 03/18/23 14:27 IMPRESSION: Status post right thoracentesis. No evidence of pneumothorax. Electronically Signed: Brett Fontanez MD at 14:39 EST , Rhythm Strip Rhythm Strip: A-fib Rate: 69 Ectopy: None Physical Exam Narrative Seen and examined. Patient is awake and feels better. Patient in sinus rhythm. Patient underwent EGD and thoracocentesis today. Physical exam General: Alert, Oriented x3, Cooperative HEENT: Atraumatic, PERRLA, EOMI, Normocephalic Oral: No Gingival or Mucosal Lesions/ Ulcerations Neck: Supple, No JVD, Negative Carotid Bruits Lungs: Air entry diminished in bilateral lung bases. Mild bilateral coarse crepitations. On 4 L of oxygen. Cardiovascular: A-fib. No murmur. Irregular heartbeat Abdomen: Bowel Sounds Present, Soft, Non Tender, Non-Distended : Ball catheter. No renal angle tenderness. No suprapubic tenderness. Extremities: Mild bilateral ankle edema. Capillary Refill Less than 3 Seconds Skin: No rashes, No breakdown Musculoskeletal: No Tenderness to Palpation of Joints or Extremities Neurological: Cranial nerves II-XII grossly intact, DTR 2+/4. No acute focal neurological deficit. Psych/Mental Status: Flat affect. Assessment & Plan Assessment/Plan (1) Acute anemia: (2) Hypotension: (3) Fall: (4) Fatigue: (5) Hyperglycemia: (6) Pleural effusion on right: (7) LUIS (acute kidney injury): (8) Hemorrhagic shock: (9) Acute lactic acidosis: (10) Leukocytosis: (11) Elevated troponin I level: PLAN: Plan 72-year-old male was admitted through ER after he fell backward in the bathroom and hit his head. Patient was very fatigued with chronic leg edema and black stool/melena. Patient was found hypotensive in shock in ED. Patient was found severely anemic 5.0, platelet count 256 and had 3 units of PRBC transfusion. Acute hemorrhagic shock due to upper GI bleed -This is the cause of his hypotension -Hemoglobin is 5.0. No metabolic acidosis noted on VBG but lactate is up at 4.5. Leukocytosis, suspected reactive from steroid use and acute GI bleed. Sepsis ruled out. Last hemoglobin 8.7, increased from 5.0. -IV fluids running until packed red blood cells but can be given -If pressure does not improve may need pressor -Hold home medications that can drop blood pressure 03/18 H&H 8.3/27%. Platelet count 190,000. Blood pressure systolic 100. Improving. 2D echo was done which shows EF 35% with moderate global hypokinesis of LV. Consistent with chronic heart failure. Previous echo shows EF 40% in November 16 therefore consistent with chronic systolic heart failure 03/19: H&H 8.6/29%. Platelet count 166,000. WBC count normal. Acute on chronic anemia -Baseline hemoglobin appears to run between 7.0 and 8.0. -Recent admission 03/03/2023 through 03/06/2023 had 2 units of packed red blood cells and hemoglobin was 10.0 on discharge -Patient is on iron at baseline and follows as an outpatient with hematology Acute GI bleed -Patient with grossly bloody stools -Cycle hemoglobin as noted above -Transfuse 3 units packed red blood cells - 03/18: Impressions : - Normal esophagus. - Normal stomach. 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 Treated with a heater probe. - Two non-bleeding angiodysplastic lesions in the jejunum. Treated with argon plasma coagulation (APC). Recommendation: Full liquid to soft diet advance as per tolerated. Discontinue IV octreotide. Protonix 40 mg oral twice daily. Eliquis discontinued completely. Troponin elevation -Troponin elevation at greater than 400 on admission -Suspect type II NSTEMI due to demand ischemia with severe anemia from acute myocardial injury -Patient is not a cardiac catheterization candidate at this point due to his GI bleeding - Bilateral pleural effusion right more than left. Patient had 980 mL of light yellow fluid drained from right posterior lower pleural fluid. 03/19: Blood cultures negative for 48 hours. Thoracocentesis shows total WBC 218, polynuclear cells 75, mononuclear cells 143, 65.6%. Neutrophils 60, lymphocytes 19, monocytes 20 and mesothelial cells 0. Glucose 196. Total protein 1.1 LDH 61. As per light criteria seems predominantly transudate. Microbiology Past 72 Hours 03/16/23 14:11 Blood Culture (Wb) - Anticubital Right Blood Culture - Preliminary No growth in 48 hours. 03/16/23 15:00 Blood Culture (Wb) - Other Blood Culture - Preliminary No growth in 48 hours. 03/16/23 14:40 Urine, Catheterized Urine Culture - Final Mixed Gram Positive Organisms 03/16/23 14:40 Mucosa - Nose SARS-CoV-2, Influenza & RSV (PCR) - Final 03/16/23 14:40 Stool Stool Occult Blood ([facility]) - Final Occult Blood Positive Laboratory Results 03/18/23 05:33: POC Glucose 192 H 03/18/23 09:37: POC Glucose 180 H 03/18/23 14:20: Fluid Source THORACENTESIS, Fluid Color YELLOW, Fluid Appearance CLEAR, Fluid WBC 0.218, Fluid RBC 35, Fluid Tot Cell Count 0.257, Fld Polynuclear WBCs # 0.075, Fld Polynuclear WBCs % 34.4, Fluid Mononuclear WBCs 0.143, Fld Mononuclear WBCs % 65.6, Fluid Neutrophils 60, Fluid Lymphocytes 19, Fluid Monocytes 20, Fld Mesothelial Cells 0, Fluid Other Cells 1, Fl Pathologist Comment May follow, Fluid Glucose 196 H, Fluid Total Protein 1.1, Fluid LDH 61, Fluid Comment 2 SEE COMMENT 03/18/23 14:21: Miscellaneous Cytology Pending 03/18/23 16:35: POC Glucose 217 H 03/18/23 22:42: POC Glucose 178 H 03/19/23 04:55: WBC 10.0, RBC 2.93 L, Hgb 8.6 L, Hct 29.0 L, MCV 99.0 H, MCH 29.4, MCHC 29.7 L, RDW Std Deviation 62.5 H, RDW Coeff of Rafael 19.3 H, Plt Count 166, MPV 11.4, Immature Gran % (Auto) 1.900 H, Neut % (Auto) 76.0 H, Lymph % (Auto) 11.9 L, [place] % (Auto) 7.1, Eos % (Auto) 2.8, Baso % (Auto) 0.3, Absolute Neuts (auto) 7.6, Absolute Lymphs (auto) 1.19, Nucleated RBC % 0.6, Sodium 142, Potassium 4.1, Chloride 107, Carbon Dioxide 32.0, Anion Gap 3 L, BUN 74 H, Creatinine 2.43 H, Estim Creat Clear Calc 32.04, Est GFR (MDRD) Af Amer 34 L, Est GFR (MDRD) Non-Af 28 L, BUN/Creatinine Ratio 30.5 H, Glucose 120 H, Calcium 7.7 L LUIS on CKD stage IIIb -Baseline serum creatinine is between 1.5 and 1.8 -Current serum creatinine is 2.64 -Suspect related to hypotension and acute blood loss -Hold diuretics -Blood transfusion as ordered -Continue IV fluids until blood can be initiated -Hold home Flomax DM-2 with hyperglycemia -Patient severely hyperglycemic on admission -Obtaining a hemoglobin A1c would be futile due to his severe anemia and transfusion being initiated -Blood sugars have been up and patient has been on steroids lately -Will give NPH 15 units x 1 dose -Start Lantus at nightly 15 units -High-dose SSI every 6 hours and hold off scheduled log at this time to see what blood sugars and see what blood sugars run with basal insulin and sliding scale -Clear liquid diet for tonight and n.p.o. after midnight -When oral diet can be reinitiated would recommend cardiac/carb control at 1800 kcal Debility/fall/generalized weakness/fatigue -Acute issues likely related to acute anemia and hypotension -PT/OT consultation -Social work/case management consultation for assistance with discharge planning -Imaging done for fall shows no fracture or acute findings on presentation Chronic hypoxic respiratory failure secondary to COPD -Patient's baseline oxygen is 4 L nasal cannula -Remains on 4 L nasal cannula with good oxygen saturations -Chest x-ray is stable -Continue as needed albuterol -Continued inhaled budesonide -Hold Lasix for now -Continue home guaifenesin -Continue home ipratropium as needed History of GI bleed/GERD -Hold home oral Protonix -IV Protonix -Previous scope in 2021 showed angiodysplastic lesions in the stomach and duodenum -Patient also has previously had a positive capsule endoscopy CAD/HTN/HPL -Patient with previous PCI to LAD and RCA as well as mid circumflex lesions remotely -Hold home antihypertensives due to hypotension on presentation -Hold home aspirin due to GI bleed -Okay to continue atorvastatin BPH with obstruction -Continue Proscar -Hold Flomax due to this potentially causing blood pressure drops to be alpha blockade History of VTE/PE -Patient had been off anticoagulation, discontinued probably due to bleeding related issues but this was restarted after last discharge -Patient does have an IVC filter that was placed in 2021 -[employer] was diagnosed when patient had COVID-19 infection Atrial fibrillation -Was diagnosed as new during last hospitalization -Currently in rate controlled atrial fibrillation -Hold home metoprolol for now due to severe hypotension on presentation -Will restart if blood pressure improves with blood -Discontinue apixaban that was started -patient has now proven that he cannot be on anticoagulation and will discontinue Eliquis indefinitely 03/19: Patient was converted to sinus rhythm yesterday. Amiodarone IV was Changed to oral amiodarone. History of Hodgkin lymphoma status post ABVD and radiation 2000 -Remote -No current issues -Follows as outpatient with oncology History of rheumatoid arthritis -Patient was previously treated with Biologics however is not currently on any -Continue outpatient follow-up Depression -Continue home mirtazapine -Continue home Lexapro DVT prophylaxis -SCDs -Chemoprophylaxis contraindicated due to GI bleeding and severe anemia on presentation CODE STATUS -Full code as per discussion prior to admission with patient and family however son is going to arrive soon and they will have further discussion so CODE STATUS could potentially change within the next 24 hours. PRBC transfusion Charges/Coding Visit Charges Inpatient E&M: 06611 Subs Hosp L3
[2023-03-19] MEDS: Pantoprazole Sodium 40 MG Tablet PO ×2 (08:53→22:19)
[2023-03-19] MEDS: Polyethylene Glycol 3350 17 GM PACKET PO (08:53)
[2023-03-19] MEDS: Escitalopram Oxalate 10 MG Tablet PO (08:53)
[2023-03-19] MEDS: Multivitamins,Therapeutic Tablet 1 TABLET PO (08:53)
[2023-03-19] MEDS: Senna/Docusate Sodium 1 Tablet 2 TABLET PO ×2 (08:53→22:19)
[2023-03-19] MEDS: Ferrous Sulfate 325 MG Tablet PO ×2 (08:53→16:11)
[2023-03-19] MEDS: Finasteride 5 MG Tablet PO (08:53)
[2023-03-19] MEDS: Amiodarone 200 MG Tablet PO ×2 (08:53→22:19)
[2023-03-19 08:56] LABS: Bedside Glucose 121 mg/dL (74-106)
[2023-03-19] MEDS: guaiFENesin 10 ML UDC (200MG/10ML) 20 ML PO ×2 (08:58→22:20)
[2023-03-19] MEDS: 0.9% Normal Saline (250mL Bag) 250 ML 15 ML IV (09:02)
--- NOTE | 2023-03-19 12:20 | ST.MBS ---
Modified Barium Swallow Patient Information Study Date: 03/19/23 Medical History: Jaydon Quintana is a 72 year old male that presented to [facility] ED after a fall 03/16/2023 in his home. His blood sugars have been markedly elevated at home and upon EMS arrival his blood sugar was in the 600. He is on prednisone for his lungs. Franco has a history of COPD, hypotension, bilateral pleural effusion, and silent aspiration. The patient does have previous history of GI bleed and also follows as an outpatient with hematology and receives iron infusions. 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 Capsule endoscopy was also done at the end of 2021 in December and was found to be negative. He has had previous issues with hematuria and follows with urology but is not currently having any hematuria. He had a recurrent fecal occult blood that was positive in July 2022 and had a capsule endoscopy at that time which showed some erosions and was treated with packed red blood cells and received Venofer infusions. The patient is on chronic oxygen and wears 4 L at baseline. With his fall, extensive imaging was performed. Chest x-ray was unremarkable for any acute findings however he does appear to have a chronic right-sided pleural effusion. CT of the brain showed chronic involutional changes but no acute findings. CT of the cervical spine was unremarkable for any acute findings. EKG showed rate controlled atrial fibrillation at a rate of 69 bpm with normal axis, normal intervals and no ST-T wave changes concerning for acute ischemia. Penetration-Aspiration Scale Penetration-Aspiration Scale: OBJECTIVE ASSESSMENT OF SWALLOW FUNCTION (QUANTITATIVE ? PER TRIAL): PENETRATION / ASPIRATION SCALE (BROOKS): 1 = does not enter airway 2 = enters airway/above vocal folds/ejected 3 = enters airway/above vocal folds/not ejected 4 = enters airway/contacts vocal folds/ejected 5 = enters airway/contacts vocal folds/not ejected 6 = enters airway/below vocal folds/ejected 7 = enters airway/below vocal folds/not ejected despite effort 8 = enters airway/below vocal folds/no effort VIDEOFLOROSCOPIC SCALE SCORE (BROOKS): Grade I = aspiration of material that has penetrated into the laryngeal vestibule, intact cough reflex Grade II = aspiration < 10 % of the bolus, intact cough reflex Grade III = aspiration of < 10 % of the bolus, reduced cough reflex or aspiration of > 10 % of the bolus, intact cough reflex Grade IV = aspiration of > 10 % of the bolus, reduced cough reflex
--- NOTE | 2023-03-19 12:33 | NURSING ---
This RN taking over care at this time
[2023-03-19] MEDS: Insulin Lispro 100 UNIT/ML INSULN.PEN SC ×3 (12:49→22:19)
[2023-03-19 13:08] LABS: Bedside Glucose 306 mg/dL (74-106)
[2023-03-19 14:28] LABS: Pathologist Comment/Body Fluid Reviewed
--- NOTE | 2023-03-19 15:42 | EX.PCM.PN.GI ---
Subjective Subjective Patient underwent large-volume paracentesis and an upper endoscopy for GI bleed. He had almost a liter of fluid removed from his lungs. Patient said he is breathing better and feels a lot better from that standpoint. He also had multiple areas of GI bleeding seen in his proximal small bowel that was treated endoscopically. Objective Data Objective Data Vital Signs: Vital Signs Temp Pulse Resp BP Pulse Ox O2 Del Method O2 Flow Rate 98.0 F 81 20 H 110/54 L 95 Nasal Cannula 5 03/19/23 12:00 03/19/23 13:12 03/19/23 13:12 03/19/23 12:00 03/19/23 14:00 03/19/23 14:00 03/19/23 14:00 Oxygen Flow Rate (L/min) 5 Oxygen Delivery Method Nasal Cannula Weight: 212 lb 1.355 oz Body Mass Index (BMI) 29.7 Intake & Output: Intake and Output for Last 24 Hours 03/17/23 03/18/23 03/19/23 23:59 23:59 23:59 Intake Total 1383.64 / 1383.64 1825.91 / 1825.91 820 / 820 Output Total 1750 / 1750 2240 / 2355 965 / 965 Balance -366.36 / -366.36 -414.09 / -529.09 -145 / -145 Lab / Micro Data 03/19/23 04:55 03/19/23 04:55 Labs: Laboratory Results - last 24 hr 03/18/23 05:33: POC Glucose 192 H 03/18/23 14:20: Fluid Source THORACENTESIS, Fluid Color YELLOW, Fluid Appearance CLEAR, Fluid WBC 0.218, Fluid RBC 35, Fluid Tot Cell Count 0.257, Fld Polynuclear WBCs # 0.075, Fld Polynuclear WBCs % 34.4, Fluid Mononuclear WBCs 0.143, Fld Mononuclear WBCs % 65.6, Fluid Neutrophils 60, Fluid Lymphocytes 19, Fluid Monocytes 20, Fld Mesothelial Cells 0, Fluid Other Cells 1, Fl Pathologist Comment Reviewed, Fluid Glucose 196 H, Fluid Total Protein 1.1, Fluid LDH 61, Fluid Comment 2 SEE COMMENT 03/18/23 16:35: POC Glucose 217 H 03/18/23 22:42: POC Glucose 178 H 03/19/23 04:55: WBC 10.0, RBC 2.93 L, Hgb 8.6 L, Hct 29.0 L, MCV 99.0 H, MCH 29.4, MCHC 29.7 L, RDW Std Deviation 62.5 H, RDW Coeff of Rafael 19.3 H, Plt Count 166, MPV 11.4, Immature Gran % (Auto) 1.900 H, Neut % (Auto) 76.0 H, Lymph % (Auto) 11.9 L, Coleman % (Auto) 7.1, Eos % (Auto) 2.8, Baso % (Auto) 0.3, Absolute Neuts (auto) 7.6, Absolute Lymphs (auto) 1.19, Nucleated RBC % 0.6, Sodium 142, Potassium 4.1, Chloride 107, Carbon Dioxide 32.0, Anion Gap 3 L, BUN 74 H, Creatinine 2.43 H, Estim Creat Clear Calc 32.04, Est GFR (MDRD) Af Amer 34 L, Est GFR (MDRD) Non-Af 28 L, BUN/Creatinine Ratio 30.5 H, Glucose 120 H, Calcium 7.7 L 03/19/23 08:36: POC Glucose 121 H 03/19/23 12:47: POC Glucose 306 H Micro: Microbiology 03/18/23 14:20 Fluid - Thoracentesis Fluid Gram Stain - Final 03/16/23 14:11 Blood Culture (Wb) - Anticubital Right Blood Culture - Preliminary No growth in 48 hours. 03/16/23 15:00 Blood Culture (Wb) - Other Blood Culture - Preliminary No growth in 48 hours. 03/16/23 14:40 Urine, Catheterized Urine Culture - Final Mixed Gram Positive Organisms 03/16/23 14:40 Mucosa - Nose SARS-CoV-2, Influenza & RSV (PCR) - Final 03/16/23 14:40 Stool Stool Occult Blood ([facility]) - Final Occult Blood Positive Rhythm Strip Rhythm Strip: A-fib Rate: 69 Ectopy: None Physical Exam Narrative Seen and examined. Patient is awake and feels better. Patient in sinus rhythm. Physical exam General: Alert, Oriented x3, Cooperative HEENT: Atraumatic, PERRLA, EOMI, Normocephalic Oral: No Gingival or Mucosal Lesions/ Ulcerations Neck: Supple, No JVD, Negative Carotid Bruits Lungs: Air entry diminished in bilateral lung bases. Mild bilateral coarse crepitations. On 4 L of oxygen. Cardiovascular: A-fib. No murmur. Irregular heartbeat Abdomen: Bowel Sounds Present, Soft, Non Tender, Non-Distended : Ball catheter. No renal angle tenderness. No suprapubic tenderness. Extremities: Mild bilateral ankle edema. Capillary Refill Less than 3 Seconds Skin: No rashes, No breakdown Musculoskeletal: No Tenderness to Palpation of Joints or Extremities Neurological: Cranial nerves II-XII grossly intact, DTR 2+/4. No acute focal neurological deficit. Psych/Mental Status: Flat affect. Assessment & Plan Assessment/Plan (1) Acute anemia: (2) Hypotension: (3) Fall: (4) Fatigue: (5) Hyperglycemia: (6) Pleural effusion on right: (7) LUIS (acute kidney injury): (8) Hemorrhagic shock: (9) Acute lactic acidosis: (10) Leukocytosis: (11) Elevated troponin I level: PLAN: Plan Acute hemorrhagic shock -This is the cause of his hypotension -Hemoglobin is 5.0 --> he was transfused 3 units packed red blood cells -The plan is to perform endoscopy tomorrow Acute on chronic anemia -Baseline hemoglobin appears to run between 7.0 and 8.0 -Recent admission 03/03/2023 through 03/06/2023 had 2 units of packed red blood cells and hemoglobin was 10.0 on discharge -Hemoglobin down to 5.0 --> he was transfused 3 units packed red blood cells Acute GI bleed -Patient with grossly bloody stools -Cycle hemoglobin as noted above -Transfuse 3 units packed red blood cells -Octreotide drip -Protonix IV push 40 mg twice daily -Hold home Eliquis -Hold home aspirin 03/19-status post upper endoscopy Findings: The examined esophagus was normal. The entire examined stomach was normal. Four 3 mm angiodysplastic lesions with bleeding were found in the second portion of the duodenum, in the third portion of the duodenum and in the fourth portion of the duodenum. Coagulation for hemostasis using heater probe was successful. Estimated blood loss was minimal. Two 5 mm angiodysplastic lesions without bleeding were found in the jejunum. Coagulation for bleeding prevention using argon plasma at 0.3 liters/minute and 20 campbell was successful. Estimated blood loss was minimal. Impression: - Normal esophagus. - Normal stomach. 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 Treated with a heater probe. - Two non-bleeding angiodysplastic lesions in the jejunum. Treated with argon plasma coagulation (APC). 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 Recommendation: I agree with pulmonary critical care to patient is not a anticoagulation candidate due to multiple angiodysplastic lesions that he continues to make. Hemoglobin seems to be stable. Recommend to check iron studies to see if he would benefit from iron transfusions. I will continue to follow. Charges/Coding Visit Charges Inpatient E&M: 45635 [facility] Hosp L3
[2023-03-19 16:30] LABS: Bedside Glucose 224 mg/dL (74-106)
--- NOTE | 2023-03-19 17:08 | NURSING ---
Called report to Rosita RASCON on PCU
--- NOTE | 2023-03-19 17:30 | NURSING ---
This Rn took over pt upon arrival to PCU at 1715.
[2023-03-19] MEDS: Atorvastatin Calcium 20 MG Tablet PO (22:19)
[2023-03-19] MEDS: Mirtazapine 15 MG Tablet 7.5 MG PO (22:20)
[2023-03-20] VITALS (10 sets, daily range): BP systolic 108–119; BP diastolic 52–74; PULSE 63–68; RESP 13–19; TEMP 36.4–36.9; O2SAT 89–100; BMI 29.5
[2023-03-20 01:33] LABS: Bedside Glucose 170 mg/dL (74-106)
[2023-03-20] MEDS: Menthol/Lanolin/Calamine/Znox 113 GM Tube 1 APPLIC TOPICAL ×2 (06:06→22:04)
[2023-03-20] MEDS: Piperacil/Tazobactam 3.375 GM in 0.9% Normal Saline (50mL MB+) 50 ML IV (06:07)
[2023-03-20 07:11] LABS: Bedside Glucose 119 mg/dL (74-106)
[2023-03-20] MEDS: Ipratropium 0.5 MG/2.5 ML SOLUTION INHALATION ×3 (07:11→19:14)
[2023-03-20] MEDS: Budesonide Respules 0.5 MG/2 ML AMPUL.NEB. INHALATION ×2 (07:11→19:14)
[2023-03-20] MEDS: Amiodarone 200 MG Tablet PO ×2 (09:10→21:59)
[2023-03-20] MEDS: Ferrous Sulfate 325 MG Tablet PO (09:10)
[2023-03-20] MEDS: Escitalopram Oxalate 10 MG Tablet PO (09:10)
[2023-03-20] MEDS: Polyethylene Glycol 3350 17 GM PACKET PO (09:10)
[2023-03-20] MEDS: Multivitamins,Therapeutic Tablet 1 TABLET PO (09:10)
[2023-03-20] MEDS: Finasteride 5 MG Tablet PO (09:11)
[2023-03-20] MEDS: Senna/Docusate Sodium 1 Tablet 2 TABLET PO ×2 (09:11→21:59)
[2023-03-20] MEDS: Pantoprazole Sodium 40 MG Tablet PO ×2 (09:11→21:59)
[2023-03-20] MEDS: guaiFENesin 10 ML UDC (200MG/10ML) 20 ML PO ×2 (09:12→22:02)
--- NOTE | 2023-03-20 10:41 | PN.CC_ITS ---
Assessment & Plan Assessment/Plan (1) Acute upper GI bleed: PLAN: Plan RECOMMENDATIONS: 1. Continue to monitor H&H. Transfuse if hemoglobin drops below 7 g/dL. 2. Continue PPI therapy. 3. Continue scheduled Atrovent and Pulmicort. 4. Continue amiodarone as ordered. 5. Wean supplemental oxygen to maintain saturations at or above 90%. 6. Continue empiric antibiotics to complete 7 days of therapy. 7. Will sign off at this time from a critical care perspective. Please call w ith any additional questions. IMPRESSIONS: 1. 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 The patient subsequently responded clinically to transfusion of blood products with stabilization and hemodynamic status. The patient was previously on Eliquis, but had the medication discontinued due to bleeding related issues. He currently has an IVC filter in place. For reasons that are not entirely clear, the patie nt's Eliquis was restarted after his last hospitalization. Recommend discontinuing Eliquis completely. The patient is now status post upper endoscopy with medical intervention performed to bleeding angiodysplastic lesions. Continue to monitor H&H and transfuse if hemoglobin drops below 7 g/dL. 2. Bilateral pleural effusions CT imaging of the chest demonstrated bilateral pleural effusions, right greater than left with an associated right lower lobe consolidation. As such, the patient will be continued on empiric antibiotics. The patient is status post ultrasound-guided thoracentesis with pleural fluid studies not demonstrating any growth to date. 3. Chronic hypoxemic respiratory failure/COPD The patient has a known history of COPD and a baseline oxygen requirement of 4 L/min. Recommend continuing scheduled aerosol treatments while admitted to the hospital. The patient is at his baseline from a respiratory perspective. 4. Troponin elevation Most likely secondary to demand ischemia in the setting #1. Echocardiogram did reveal moderate global hypokinesis of the LV with an ejection fraction of 35%. 5. Acute on chronic kidney disease Most likely prerenal in etiology in the setting of #1. Anticipate improvement with stabilization of blood counts and hemodynamic status. Continue to monitor urine output. No current indication for renal replacement therapy. 6. History of diabetes mellitus/generalized weakness/coronary artery disease/BPH/history of VTE/atrial fibrillation Complicates care, management, recovery and prognosis. Continue supportive care as outlined above. Physical therapy to work with the patient. Continue amiodarone as ordered. This note was generated with [employer] dictation software. It may contain incorrect words, spelling, and punctuation that were not noted in checking the note before signing. Subjective Subjective The patient was seen and examined at the bedside this morning. Events from the last 24 hours have been reviewed. The patient is currently afebrile, hemodynamically stable and maintaining appropriate oxygen saturations on room air. The patient is currently documented to be overall net -1.3 L for the hospitalization. Objective Data Objective Data The patient's most recent lab work, culture data and imaging studies have all been personally reviewed. Surface echocardiogram demonstrated an ejection fraction of 35% with moderate global hypokinesis of the LV. COVID, influenza and RSV PCR negative. Blood, urine and pleural fluid cultures have not demonstrated any growth to date. Vital Signs: Vital Signs Temp Pulse Resp BP Pulse Ox O2 Del Method O2 Flow Rate 98.2 F 68 18 110/52 L 95 Room Air 4 03/20/23 09:10 03/20/23 09:10 03/20/23 09:10 03/20/23 09:10 03/20/23 09:10 03/20/23 09:10 03/20/23 08:10 Oxygen Flow Rate (L/min) 4 Oxygen Delivery Method Room Air Weight: 211 lb 6.773 oz Body Mass Index (BMI) 29.5 Intake & Output: Intake and Output for Last 24 Hours 03/18/23 03/19/23 03/20/23 23:59 23:59 23:59 Intake Total 1825.91 / 1825.91 1310 / 1330 370 / 370 Output Total 2240 / 2355 1215 / 1465 500 / 500 Balance -414.09 / -529.09 95 / -135 -130 / -130 Lab / Micro Data Attestation: I reviewed the patient's lab results. 03/19/23 04:55 03/19/23 04:55 Labs: Laboratory Results - last 24 hr 03/18/23 14:20: Fl Pathologist Comment Reviewed 03/19/23 12:47: POC Glucose 306 H 03/19/23 16:10: POC Glucose 224 H 03/19/23 22:17: POC Glucose 170 H 03/20/23 06:47: POC Glucose 119 H Micro: Microbiology 03/18/23 14:20 Fluid - Thoracentesis Fluid Gram Stain - Final 03/18/23 14:20 Fluid - Thoracentesis Fluid Anaerobic Culture - Preliminary No growth in 48 hours. 03/16/23 14:11 Blood Culture (Wb) - Anticubital Right Blood Culture - Preliminary No growth in 48 hours. 03/16/23 15:00 Blood Culture (Wb) - Other Blood Culture - Preliminary No growth in 48 hours. 03/16/23 14:40 Urine, Catheterized Urine Culture - Final Mixed Gram Positive Organisms 03/16/23 14:40 Mucosa - Nose SARS-CoV-2, Influenza & RSV (PCR) - Final 03/16/23 14:40 Stool Stool Occult Blood (FOR[facility]) - Final Occult Blood Positive Radiography Diagnostic Testing: Radiology Impression Chest X-Ray 03/18/23 14:27 IMPRESSION: Status post right thoracentesis. No evidence of pneumothorax. Electronically Signed: Brett Fontanez MD at 14:39 EST , Rhythm Strip Rhythm Strip: A-fib Rate: 69 Ectopy: None Physical Exam Const alert and no apparent distress General Appearance: cooperative HEENT normocephalic and head/scalp atraumatic Eyes PERRL, EOMs intact bilaterally and conjunctivae normal Neck supple General: trachea midline Chest inspection of chest normal Resp normal respiratory effort Auscultation: diminished lung sounds; Negative for rales, rhonchi or wheezes Cardio regular rate, S1 normal heart sound and S2 normal heart sound Rhythm: abnormal rhythm Heart Sounds: murmur GI normal to inspection, nondistended, normoactive bowel sounds Extremity General Extremity: edema; Negative for clubbing Skin no rashes or lesions noted Neuro CN's II-XII intact bilaterally, moves all extremities and no focal motor deficits Psych Mood & Affect: flat affect Charges/Coding Visit Charges Inpatient E&M: 60214 Subs Hosp L2
[2023-03-20] MEDS: Insulin Lispro 100 UNIT/ML INSULN.PEN SC ×3 (12:30→22:04)
[2023-03-20 12:49] LABS: Bedside Glucose 187 mg/dL (74-106)
--- NOTE | 2023-03-20 13:27 | PCM.PN.HOSP ---
Reason for Visit Reason for Visit: Diagnoses Anemia, unspecified (03/16/23) Elevated white blood cell count, unspecified (03/16/23) Acute metabolic acidosis (03/16/23) Hypotension, unspecified (03/16/23) Pleural effusion, not elsewhere classified (03/16/23) Gastrointestinal hemorrhage, unspecified (03/16/23) Acute kidney failure, unspecified (03/16/23) Other fatigue (03/16/23) Other shock (03/16/23) Hyperglycemia, unspecified (03/16/23) Other specified abnormal findings of blood chemistry (03/16/23) Unspecified fall, initial encounter (03/16/23) Objective Data Objective Data Vital Signs: Vital Signs Temp Pulse Resp BP Pulse Ox O2 Del Method O2 Flow Rate 98.2 F 65 13 110/52 L 95 Room Air 4 03/20/23 09:10 03/20/23 12:42 03/20/23 12:42 03/20/23 09:10 03/20/23 12:24 03/20/23 09:10 03/20/23 12:24 Oxygen Flow Rate (L/min) [ 4 AMBULATING with Oxygen #1] Oxygen Flow Rate (L/min) [At 4 REST with Oxygen] Oxygen Flow Rate (L/min) 4 Oxygen Delivery Method Room Air Weight: 211 lb 6.773 oz Body Mass Index (BMI) 29.5 Intake & Output: Intake and Output for Last 24 Hours 03/18/23 03/19/23 03/20/23 23:59 23:59 23:59 Intake Total 1825.91 / 1825.91 1310 / 1330 810 / 810 Output Total 2240 / 2355 1215 / 1465 950 / 950 Balance -414.09 / -529.09 95 / -135 -140 / -140 Lab / Micro Data 03/19/23 04:55 03/19/23 04:55 Labs: Laboratory Results - last 24 hr 03/18/23 14:20: Fl Pathologist Comment Reviewed 03/19/23 16:10: POC Glucose 224 H 03/19/23 22:17: POC Glucose 170 H 03/20/23 06:47: POC Glucose 119 H 03/20/23 12:30: POC Glucose 187 H Micro: Microbiology 03/18/23 14:20 Fluid - Thoracentesis Fluid Gram Stain - Final 03/18/23 14:20 Fluid - Thoracentesis Fluid Anaerobic Culture - Preliminary No growth in 48 hours. 03/16/23 14:11 Blood Culture (Wb) - Anticubital Right Blood Culture - Preliminary No growth in 48 hours. 03/16/23 15:00 Blood Culture (Wb) - Other Blood Culture - Preliminary No growth in 48 hours. 03/16/23 14:40 Urine, Catheterized Urine Culture - Final Mixed Gram Positive Organisms 03/16/23 14:40 Mucosa - Nose SARS-CoV-2, Influenza & RSV (PCR) - Final 03/16/23 14:40 Stool Stool Occult Blood ([facility]) - Final Occult Blood Positive Rhythm Strip Rhythm Strip: A-fib Rate: 69 Ectopy: None Physical Exam Narrative Seen and examined. Patient is awake and feels better. Patient in sinus rhythm. Patient went for modified barium swallow. Has not been evaluated with PT yet. Patient on 4 L of home oxygen and 5 L on exertion/walking. Physical exam General: Alert, Oriented x3, Cooperative, fatigue. HEENT: Atraumatic, PERRLA, EOMI, Normocephalic Oral: No Gingival or Mucosal Lesions/ Ulcerations Neck: Supple, No JVD, Negative Carotid Bruits Lungs: Air entry diminished in bilateral lung bases. Mild bilateral coarse crepitations. On 4 L of oxygen. Cardiovascular: A-fib. No murmur. Irregular heartbeat Abdomen: Bowel Sounds Present, Soft, Non Tender, Non-Distended : Ball catheter. No renal angle tenderness. No suprapubic tenderness. Extremities: Mild bilateral ankle edema. Capillary Refill Less than 3 Seconds Skin: No rashes, No breakdown Musculoskeletal: No Tenderness to Palpation of Joints or Extremities Neurological: Cranial nerves II-XII grossly intact, DTR 2+/4. No acute focal neurological deficit. Psych/Mental Status: Flat affect. Assessment & Plan Assessment/Plan (1) Acute anemia: (2) Hypotension: (3) Fall: (4) Fatigue: (5) Hyperglycemia: (6) Pleural effusion on right: (7) LUIS (acute kidney injury): (8) Hemorrhagic shock: (9) Acute lactic acidosis: (10) Leukocytosis: (11) Elevated troponin I level: PLAN: Plan 72-year-old male was admitted through ER after he fell backward in the bathroom and hit his head. Patient was very fatigued with chronic leg edema and black stool/melena. Patient was found hypotensive in shock in ED. Patient was found severely anemic 5.0, platelet count 256 and had 3 units of PRBC transfusion. Acute hemorrhagic shock due to upper GI bleed -This is the cause of his hypotension -Hemoglobin is 5.0. No metabolic acidosis noted on VBG but lactate is up at 4.5. Leukocytosis, suspected reactive from steroid use and acute GI bleed. Sepsis ruled out. Last hemoglobin 8.7, increased from 5.0. -IV fluids running until packed red blood cells but can be given -If pressure does not improve may need pressor -Hold home medications that can drop blood pressure 03/18 H&H 8.3/27%. Platelet count 190,000. Blood pressure systolic 100. Improving. 2D echo was done which shows EF 35% with moderate global hypokinesis of LV. Consistent with chronic heart failure. Previous echo shows EF 40% in November 16 therefore consistent with chronic systolic heart failure 03/19: H&H 8.6/29%. Platelet count 166,000. WBC count normal. 03/20 H&H 8.6/29%. No acute bleeding. Acute on chronic anemia -Baseline hemoglobin appears to run between 7.0 and 8.0. -Recent admission 03/03/2023 through 03/06/2023 had 2 units of packed red blood cells and hemoglobin was 10.0 on discharge -Patient is on iron at baseline and follows as an outpatient with hematology Acute GI bleed -Patient with grossly bloody stools -Cycle hemoglobin as noted above -Had been transfuse 3 units packed red blood cells - 03/18: Impressions : - Normal esophagus. - Normal stomach. 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 Treated with a heater probe. - Two non-bleeding angiodysplastic lesions in the jejunum. Treated with argon plasma coagulation (APC). Recommendation: Full liquid to soft diet advance as per tolerated. Discontinue IV octreotide. Protonix 40 mg oral twice daily. Eliquis discontinued completely. Troponin elevation -Troponin elevation at greater than 400 on admission -Suspect type II NSTEMI due to demand ischemia with severe anemia from acute myocardial injury -Patient is not a cardiac catheterization candidate at this point due to his GI bleeding - Bilateral pleural effusion right more than left. Patient had 980 mL of light yellow fluid drained from right posterior lower pleural fluid. 03/19: Blood cultures negative for 48 hours. Thoracocentesis shows total WBC 218, polynuclear cells 75, mononuclear cells 143, 65.6%. Neutrophils 60, lymphocytes 19, monocytes 20 and mesothelial cells 0. Glucose 196. Total protein 1.1 LDH 61. As per light criteria seems predominantly transudate. 03/20: Pleural effusion fluid does not show any growth. IV antibiotic discontinued after 4 days of empiric treatment. LUIS on CKD stage IIIb -Baseline serum creatinine is between 1.5 and 1.8 -Current serum creatinine is 2.64 -Suspect related to hypotension and acute blood loss -Hold diuretics -Blood transfusion as ordered -Continue IV fluids until blood can be initiated -Hold home Flomax 03/20: BUNs/creatinine slightly went up from 2.23-2.43. DM-2 with hyperglycemia -Patient severely hyperglycemic on admission -Obtaining a hemoglobin A1c would be futile due to his severe anemia and transfusion being initiated -Blood sugars have been up and patient has been on steroids lately -Will give NPH 15 units x 1 dose -Start Lantus at nightly 15 units -High-dose SSI every 6 hours and hold off scheduled log at this time to see what blood sugars and see what blood sugars run with basal insulin and sliding scale -Clear liquid diet for tonight and n.p.o. after midnight -When oral diet can be reinitiated would recommend cardiac/carb control at 1800 kcal 03/20 glucose is controlled. Debility/fall/generalized weakness/fatigue -Acute issues likely related to acute anemia and hypotension -PT/OT consultation -Social work/case management consultation for assistance with discharge planning -Imaging done for fall shows no fracture or acute findings on presentation Chronic hypoxic respiratory failure secondary to COPD -Patient's baseline oxygen is 4 L nasal cannula -Remains on 4 L nasal cannula with good oxygen saturations -Chest x-ray is stable -Continue as needed albuterol -Continued inhaled budesonide -Hold Lasix for now -Continue home guaifenesin -Continue home ipratropium as needed History of GI bleed/GERD -Hold home oral Protonix -IV Protonix -Previous scope in 2021 showed angiodysplastic lesions in the stomach and duodenum -Patient also has previously had a positive capsule endoscopy 03/20: Patient went for modified barium swallow. CAD/HTN/HPL -Patient with previous PCI to LAD and RCA as well as mid circumflex lesions remotely -Hold home antihypertensives due to hypotension on presentation -Hold home aspirin due to GI bleed -Okay to continue atorvastatin BPH with obstruction -Continue Proscar -Hold Flomax due to this potentially causing blood pressure drops to be alpha blockade History of VTE/PE -Patient had been off anticoagulation, discontinued probably due to bleeding related issues but this was restarted after last discharge -Patient does have an IVC filter that was placed in 2021 -[employer] was diagnosed when patient had COVID-19 infection Atrial fibrillation -Was diagnosed as new during last hospitalization -Currently in rate controlled atrial fibrillation -Hold home metoprolol for now due to severe hypotension on presentation -Will restart if blood pressure improves with blood -Discontinue apixaban that was started -patient has now proven that he cannot be on anticoagulation and will discontinue Eliquis indefinitely 03/19: Patient was converted to sinus rhythm yesterday. Amiodarone IV was Changed to oral amiodarone. History of Hodgkin lymphoma status post ABVD and radiation 2000 -Remote -No current issues -Follows as outpatient with oncology History of rheumatoid arthritis -Patient was previously treated with Biologics however is not currently on any -Continue outpatient follow-up Depression -Continue home mirtazapine -Continue home Lexapro DVT prophylaxis -SCDs -Chemoprophylaxis contraindicated due to GI bleeding and severe anemia on presentation CODE STATUS -Full code as per discussion prior to admission with patient and family however son is going to arrive soon and they will have further discussion so CODE STATUS could potentially change within the next 24 hours. Charges/Coding Visit Charges Inpatient E&M: 83665 Subs Hosp L2
--- NOTE | 2023-03-20 14:38 | SP.MBSS_ITS ---
Modified Barium Swallow Patient Information Study Date: 03/20/23 Study Time: 13:30 Direct Billable Minutes: 122 Total Minutes procedure & reportin Diagnosis: COPD J44.1, Pleural effusion on right J90 Referring Physician: Clive Sharp Reason for Referral: Objectively assess swallow function, assess risk for aspiration, and determine recommendations for least restrictive diet textures and compensatory strategies to improve safety of swallow. Medical History: PMH: Acute respiratory failure with hypoxia, Asthma, Cancer, Chronic bronchitis, COPD, COVID-19 in immunocompromised patient, DVT, HTN, Former Smoker, FTT (failure to thrive) in adult, Gastritis, High cholesterol, History of basal cell carcinoma, Hx of PE, Non-Hodgkin lymphoma, PNA, DM type II, RA, PNA. He presented to [facility] ED on 03/16/2023 after a fall at home. Evidently, he was going to the bathroom and fell backwards and hit his head. He lives at home with his and granddaughter. He did have a recent admission here from 03/03/2023 through 03/06/2023 for anemia and hypoxemia. He was treated for acute exacerbation of COPD and diuresed as there was felt to be a component of acute on chronic HFrEF. The patient is on chronic oxygen and wears 4 L at baseline. Upon arrival for current admission, he had hyperglycemia. Chest x-ray was unremarkable for any acute findings; however, he does appear to have a chronic right-sided pleural effusion. CT of the brain showed chronic involutional changes but no acute findings. He was admitted to ICU for management of acute hemmorrhagic shock due to upper GI bleed, anemia, LUIS, DM type II, and right pleural effusion amongst other comorbidities. During hospitalizations, he devel oped bilateral pleural effusions, right greater than left with an associated RLL consolidation. Thoracentesis completed during stay. He was referred for ST consult due to choking on water when taking medications. BSE recommended NPO until completion of MBSS. He was placed back on a diet following EGD. 03/19/2023 He was deemed not appropriate for MBSS due to constipation. DIELECTRIC EMBOSSING MACHINE OPERATOR saw the patient for bedside dysphagia treatment recommending remaining on regular textures / thin liquids with aspiration precautions unless worsening respiratory status with plan for re-attempted MBSS to be completed with gastrografin as opposed to barium due to constipation. Patient and physician agreeable to use of gastrografin for this study. The patient is familiar to this ST department. Patient has hx of oropharyngeal dysphagia. Most recent POC at [facility] was a stay on [facility] T[facility] with 2-weeks of dysphagia treatment (05/05/2021-05/17/2021) and [facility] upon discharge home. MBSS was completed as an OP on 06/05/2022 w/ recommendations for regular textures / thin liquids via tsp or 5cc Provale cup (w/ FFWP) d/t observed SILENT ASPIRATION. Current Diet Ordered: Regular / Thin Mental Status: WNL Respiratory Status: Oxygenating on 4L/M nasal cannula (Fine crackles RLL and LLL today per RN charting) Penetration-Aspiration Scale Penetration-Aspiration Scale: OBJECTIVE ASSESSMENT OF SWALLOW FUNCTION (QUANTITATIVE ? PER TRIAL): PENETRATION / ASPIRATION SCALE (BROOKS): 1 = does not enter airway 2 = enters airway/above vocal folds/ejected 3 = enters airway/above vocal folds/not ejected 4 = enters airway/contacts vocal folds/ejected 5 = enters airway/contacts vocal folds/not ejected 6 = enters airway/below vocal folds/ejected 7 = enters airway/below vocal folds/not ejected despite effort 8 = enters airway/below vocal folds/no effort VIDEOFLOROSCOPIC SCALE SCORE (BROOKS): Grade I = aspiration of material that has penetrated into the laryngeal vestibule, intact cough reflex Grade II = aspiration < 10 % of the bolus, intact cough reflex Grade III = aspiration of < 10 % of the bolus, reduced cough reflex or aspiration of > 10 % of the bolus, intact cough reflex Grade IV = aspiration of > 10 % of the bolus, reduced cough reflex Penetration-Aspiration Scale Score Thin Liquid via teaspoon: Result: 2= enter airway/above vocal folds/ejected Thin Liquid via teaspoon Trial 2: Result: 3= enters airways/above vocal folds/not ejected Thin Liquid via small single sip: cup: Result: 7= enters airways/below vocal folds/not ejected despite effort Comment: Delayed reflexive cough (productive of phlegm) appeared to clear contrast from the trachea (what was visible to DIELECTRIC EMBOSSING MACHINE OPERATOR under fluoroscopy) and laryngeal vestibule. Thin Liquid via small single sip: cup Effortful swallow: Result: 1= does not enter airway [place] Thick Liquid via small single sip: cup: Result: 2= enter airway/above vocal folds/ejected Applesauce via tsp: Result: 2= enter airway/above vocal folds/ejected Comment: Contrast likely from trace residues from previous trials appeared on the patient's vocal folds during the swallow. Esophageal screen - Complete clearance. Thin Liquid via single sip: straw Effortful swallow: Result: 5= enters airways/contacts vocal folds/not ejected Thin Liquid via small single sip: cup Left head turn: Result: 8= enters airway/below vocal folds/no effort Comment: Patient reports more weakness on L side, so DIELECTRIC EMBOSSING MACHINE OPERATOR attempted L head turn/rotation - not effective. Cued cough and re-swallow was effective in clearing the laryngeal vestibule and trachea of aspirated contrast. Of note, following this trial he declined cookie trial, so DIELECTRIC EMBOSSING MACHINE OPERATOR continued with assessment of liquids with use of compensatory strategies. [place] Thick Liquid via small single sip: cup Trial 2: Result: 2= enter airway/above vocal folds/ejected Thin Liquid via small single sip: cup Chin tuck: Result: 2= enter airway/above vocal folds/ejected Oral Phase Labial Seal: Escape beyond mid-chin Tongue Control During Bolus Hold: Posterior escape of less than half of bolus Bolus Transport/Lingual Motion: Repetitive/disorganized tongue motion Oral Residue: Trace residue lining oral structures Pharyngeal Phase Initiation of Pharyngeal Swallow: Bolus head in pyriforms Soft Palate Elevation: Trace column of contrast/air between soft palate and pharyngeal wall Laryngeal Elevation: Partial superior movement thyroid cart/partial apprx aryt- epig petiole Anterior Hyoid Excursion: Partial anterior movement Epiglottic Movement: Complete inversion Laryngeal Vestibule Closure at Height of Swallow: Incomplete; narrow column of air/contrast in laryngeal vestibule Pharyngeal Stripping Wave: Present - diminished Pharyngoesophageal Segment Opening: Parital distension and partial duration; parital obstruction of flow Tongue Base Retraction: Wide column of contrast between tongue base & post. pharyngeal wall Pharyngeal Residue: Collection of residue within or on pharyngeal structures Esophageal Phase Esophageal Clearance: Complete clearance Diagnosis/Impression Diagnosis: Moderate oropharyngeal dysphagia R13.12 Impression: Patient painful sitting in the chair. He declined trial of cookie. He declined further trials of liquids after thin liquids via chin tuck. The oral phase is primarily marked by... -Decreased bolus control with >1/2 of the bolus spilling posteriorly to the pyriforms prior to swallow onset observed with liquids and applesauce. -Lingual pumping for A-P transport. -Unable to assess mastication due to patient declining cookie trial; however, patient has been tolerating a regular textured diet since 03/19/2023. The pharyngeal phase is primarily marked by... -Decreased airway closure during the swallow due to partial anterior hyoid excursion and partial laryngeal elevation. -Moderately decreased tongue base retraction, mildly decreased UES opening/duration, and moderately decreased pharyngeal stripping wave, resulting in mild-moderate pharyngeal residues after the swallow. -Delayed swallow onset. -SILENT aspiration of thin liquids via straw with use of effortful swallow. Overt aspiration of thin liquids via cup with effortful swallow with delayed, but effective cough reflex. Chin tuck and cough and re-swallow appeared to be most effective in decreasing aspiration risk. SEE PAS scores above for additional details regarding aspiration and laryngeal penetration. Recommendations Diet: Regular Textures and Thin Liquids Comment: intermittent cough and re-swallow, frequent oral care Compensatory Strategies: Small Bites, Small Sips, Slow Rate, Chin Tuck (with liquids), Alternate bites/solids and sips/liquids, Sitting upright and Remain sitting upright for 30 minutes after PO intake Supervision: 1:1 Close Supervision Recommend Repeat Modified Barium Swallow: TBD Need for Skilled Speech Therapy Services: Yes Comment: -Train in use of strategies to decrease aspiration risk. -Ongoing assessment of diet tolerance. If concerns for worsening respiratory status, would consider diet downgrade to nectar thick liquids. -Train in oropharyngeal exercise program to address deficits in airway closure, pharyngeal stripping wave, and tongue base retraction (consider Sharon, effortful swallow, Nicolasa, effortful breath hold and swallow). Education Completed: 1. Described result of evaluation., 2. Pt understands evaluation & agrees with goals and treatment plan. and 7. Pt requires further education on strategies & risks. Status Active ST Patient: Active Contact Information [facility] Speech Therapy:: Chelsey Adhikari M.A. [facility]-DIELECTRIC EMBOSSING MACHINE OPERATOR Speech-Language Pathologist [facility] [address] [place] [address] [email or web address] [phone]
[2023-03-20 16:28] LABS: Bedside Glucose 187 mg/dL (74-106)
[2023-03-20] MEDS: Mirtazapine 15 MG Tablet 7.5 MG PO (21:59)
[2023-03-20] MEDS: Atorvastatin Calcium 20 MG Tablet PO (22:00)
[2023-03-20 22:25] LABS: Bedside Glucose 223 mg/dL (74-106)
[2023-03-21 03:31] VITALS: BP 107/62; PULSE 98; RESP 18; TEMP 36.7; O2SAT 99
[2023-03-21] MEDS: Insulin Lispro 100 UNIT/ML INSULN.PEN SC ×3 (06:26→16:46)
[2023-03-21 06:46] LABS: Bedside Glucose 176 mg/dL (74-106)
[2023-03-21 06:59] VITALS: PULSE 74; RESP 16; O2SAT 97
[2023-03-21] MEDS: Ipratropium 0.5 MG/2.5 ML SOLUTION INHALATION ×2 (06:59→13:07)
[2023-03-21] MEDS: Budesonide Respules 0.5 MG/2 ML AMPUL.NEB. INHALATION (06:59)
[2023-03-21 08:47] VITALS: BP 100/61; PULSE 65; RESP 16; TEMP 36.7; O2SAT 98
[2023-03-21 08:48] VITALS: BMI 28.8
[2023-03-21] MEDS: Senna/Docusate Sodium 1 Tablet 2 TABLET PO (08:56)
[2023-03-21] MEDS: Pantoprazole Sodium 40 MG Tablet PO (08:56)
[2023-03-21] MEDS: Multivitamins,Therapeutic Tablet 1 TABLET PO (08:56)
[2023-03-21] MEDS: Escitalopram Oxalate 10 MG Tablet PO (08:56)
[2023-03-21] MEDS: guaiFENesin 10 ML UDC (200MG/10ML) 20 ML PO (08:56)
[2023-03-21] MEDS: Amiodarone 200 MG Tablet PO (08:56)
[2023-03-21] MEDS: Polyethylene Glycol 3350 17 GM PACKET PO (08:56)
[2023-03-21] MEDS: Finasteride 5 MG Tablet PO (08:56)
--- NOTE | 2023-03-21 10:30 | DCINST_ITS ---
Discharge Instructions Diet Discharge Diet: 1800 Calorie Control Diet and 2000 mg Sodium Diet Activity Discharge Activity: Return to Normal Activity Weight Bearing Status: Weight bearing as tolerated Dressing / Incision Call your doctor if you observe: Fever of 101 or Higher, Coldness, Increased Pain, Numbness or Tingling, Change in Color, Inability to urinate, Inability to have a bowel movement, Shortness of breath, Dizziness, Fainting spells, Swelling in the ankles, Chest pain, Prolonged hiccupping, Increased palpitations (irregular heartbeat) and Calf discomfort Follow Up Care When: IN 2 WEEKS Test Results: Test results from this visit will be discussed in further detail at your follow- up appointment, if applicable. Discharge Plan Admission Admit Date/Time: 03/16/23 15:14 Primary Reason for Your Visit: Acute upper GI bleed. Attending Provider: Clive Sharp Primary Care Provider: Donna Will Consulting Providers: Nadira Ricks Discharge Orders/Prescriptions Prescriptions: New ferrous sulfate [FeroSul] 325 mg (65 mg iron) Tablet 325 mg PO LUNCH 30 Days Qty: 30 2RF polyethylene glycol 3350 17 gram Powder In Packet 17 g PO DAILY Qty: 0 0RF amiodarone 200 mg Tablet 200 mg PO BID 30 Days Qty: 60 0RF sennosides-docusate sodium [Stool Softener-Stimulant Laxat] 8.6-50 mg Tablet 2 tab PO BID Qty: 0 0RF insulin lispro [Humalog KwikPen Insulin] 100 unit/mL Insulin Pen See Protocol subcut ACHS Qty: 0 0RF Protocol: 5. Sliding Scale Insulin High Dosing Condition: 150-209 mg/dl = 3 units Condition: 210-259 mg/dl = 6 units Condition: 260-324 mg/dl = 9 units Condition: 325-374 mg/dl = 12 units Condition: 375-409 mg/dl = 14 units Condition: 410-449 mg/dl = 16 units Condition: Greater than 449 call physician Protocol Text: - Use for Total Daily Dose of Insulin 81-120 units - Very insulin resistant or septic patients HIGH DOSING ALGORITHM amoxicillin-pot clavulanate [Augmentin] 500-125 mg tablet 1 tab PO BID 3 Days Qty: 6 0RF Continued nitroglycerin [Nitrostat] 0.4 mg tablet, sublingual 0.4 mg SUBLINGUAL Q5M PRN (Reason: chest pain) Qty: 30 0RF Rx Instructions: until response; do not exceed 3 doses per episode multivitamin Tablet 1 tab PO DAILY tamsulosin 0.4 mg capsule 0.4 mg PO QHS finasteride 5 mg tablet 5 mg PO DAILY atorvastatin 40 mg tablet 20 mg PO QHS budesonide 1 mg/2 mL suspension for nebulization 1 mg inhalation Q12H guaifenesin [Mucus Relief ER] 1,200 mg Tablet Extended Release 12hr 1,200 mg PO BID 10 Days Qty: 20 0RF furosemide [Lasix] 40 mg tablet 40 mg PO DAILY Qty: 30 0RF metoprolol tartrate 25 mg Tablet 12.5 mg PO BID 60 Days Qty: 60 0RF pantoprazole 40 mg tablet,delayed release (DR/EC) 40 mg PO BID 90 Days Qty: 180 1RF escitalopram oxalate 10 mg tablet 10 mg PO DAILY 90 Days Qty: 90 3RF mirtazapine [Remeron] 15 mg tablet 7.5 mg PO QHS Qty: 90 1RF ipratropium bromide 0.02 % solution 2.5 ml inhalation Q6H PRN (Reason: shortness of breath or wheezing) Qty: 150 6RF albuterol sulfate 2.5 mg /3 mL (0.083 %) solution for nebulization 2.5 mg inhalation Q4H PRN (Reason: Sob &/Or Wheezing) Qty: 540 3RF menthol-zinc oxide [Calmoseptine] 0.44-20.6 % ointment 1 applic topical 4-6XD PRN (Reason: skin irritation) Qty: 113 2RF Held aspirin 81 mg Tablet,Delayed Release (Dr/Ec) 81 mg PO DAILY Hold Instructions: Hold for 5 days. Discontinued ferrous sulfate 325 mg (65 mg iron) tablet 325 mg PO BID prednisone 20 mg tablet 20 mg PO BID Qty: 10 0RF Eliquis 5 mg Tablet 5 mg PO BID 30 Days Qty: 60 0RF guaifenesin [Adult Tussin Chest Congestion] 100 mg/5 mL liquid 400 mg PO BID Referrals / Follow Up: Donna Will MD [Primary Care Provider] - 03/27/23 11:30 am Anthony Singleton DO [Med Staff - Active Staff] - Within 2 Weeks Friend,Khai, DO [Med Staff - Active Staff] - Within 1 Month Disposition Disposition (needs filled in before D/C Order can be placed): Home Health Service
[2023-03-21] MEDS: Ferrous Sulfate 325 MG Tablet PO (12:02)
[2023-03-21] MEDS: Menthol/Lanolin/Calamine/Znox 113 GM Tube 1 APPLIC TOPICAL (12:05)
[2023-03-21 12:28] LABS: Bedside Glucose 192 mg/dL (74-106)
--- NOTE | 2023-03-21 13:30 | CASEMGMT ---
Patient has order for discharge. RN CM In to discuss discharge with patient and updated that patient will discharge with resumption of [facility]. Patient had no further questions or concerns. RN CM called and updated regarding discharge. had no questions or concenrs.
[2023-03-21 14:00] VITALS: BP 103/65; PULSE 82; RESP 18; TEMP 36.7; O2SAT 100
--- NOTE | 2023-03-21 14:38 | PCM.DC.SUM ---
Providers Date of Admission: 03/16/23 Date of Discharge: 03/21/23 Primary Care Physician: Dr. Donna Will MD Consultations 03/16/23 17:32 Consult: Gastroenterology Routine Consulting Provider: [facility] Reason for Consult: GI bleed EMERGENT Consult: No Notified: Yes Date Notified: 03/16/23 Time Notified: 15:15 Method of Notification: ED Physician Initiated Consult: [employer] Supervisor / Pulmonary Medicine Routine Consulting Provider: Intensivists/Pulmonary Med Reason for Consult: Hemorrhagic shock 2/2 acute GIB EMERGENT Consult: No Notified: Yes Date Notified: 03/16/23 Time Notified: 15:23 Method of Notification: Text Reason For Visit: SEVERE ACUTE ON CHRONIC ANEMIA/GI BLEED Diagnosis Discharge Diagnosis (1) Acute anemia: Status: Acute Code(s): D64.9 - Anemia, unspecified (2) Hypotension: Status: Acute Code(s): I95.9 - Hypotension, unspecified (3) Fall: Status: Acute Code(s): W19.XXXA - Unspecified fall, initial encounter (4) Fatigue: Status: Acute Code(s): R53.83 - Other fatigue (5) Hyperglycemia: Status: Acute Code(s): R73.9 - Hyperglycemia, unspecified (6) Pleural effusion on right: Status: Acute Code(s): J90 - Pleural effusion, not elsewhere classified (7) LUIS (acute kidney injury): Status: Acute Code(s): N17.9 - Acute kidney failure, unspecified (8) Hemorrhagic shock: Status: Acute Code(s): R57.8 - Other shock (9) Acute lactic acidosis: Status: Acute Code(s): E87.21 - Acute metabolic acidosis (10) Leukocytosis: Status: Acute Code(s): D72.829 - Elevated white blood cell count, unspecified (11) Elevated troponin I level: Status: Acute Code(s): R79.89 - Other specified abnormal findings of blood chemistry Plan 72-year-old male was admitted through ER after he fell backward in the bathroom and hit his head. Patient was very fatigued with chronic leg edema and black stool/melena. Patient was found hypotensive in shock in ED. Patient was found severely anemic 5.0, platelet count 256 and had 3 units of PRBC transfusion. Acute hemorrhagic shock due to upper GI bleed -This is the cause of his hypotension -Hemoglobin is 5.0. No metabolic acidosis noted on VBG but lactate is up at 4.5. Leukocytosis, suspected reactive from steroid use and acute GI bleed. Sepsis ruled out. Last hemoglobin 8.7, increased from 5.0. -IV fluids running until packed red blood cells but can be given -If pressure does not improve may need pressor -Hold home medications that can drop blood pressure 03/18 H&H 8.3/27%. Platelet count 190,000. Blood pressure systolic 100. Improving. 2D echo was done which shows EF 35% with moderate global hypokinesis of LV. Consistent with chronic heart failure. Previous echo shows EF 40% in November 16 therefore consistent with chronic systolic heart failure 03/19: H&H 8.6/29%. Platelet count 166,000. WBC count normal. 03/20 H&H 8.6/29%. No acute bleeding. 03/21: Hemoglobin has been above 8 g for last 3 days. Patient discharged on ferrous sulfate. Continue pantoprazole 40 mg twice daily at least for 2 months and then once daily with follow-up in GI clinic in 1 Acute on chronic anemia -Baseline hemoglobin appears to run between 7.0 and 8.0. -Recent admission 03/03/2023 through 03/06/2023 had 2 units of packed red blood cells and hemoglobin was 10.0 on discharge -Patient is on iron at baseline and follows as an outpatient with hematology 03/21: Follow-up with hematology clinic for chronic anemia. Acute GI bleed -Patient with grossly bloody stools -Cycle hemoglobin as noted above -Had been transfuse 3 units packed red blood cells - 03/18: Impressions : - Normal esophagus. - Normal stomach. 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 Treated with a heater probe. - Two non-bleeding angiodysplastic lesions in the jejunum. Treated with argon plasma coagulation (APC). Recommendation: Full liquid to soft diet advance as per tolerated. Discontinue IV octreotide. Protonix 40 mg oral twice daily. Eliquis discontinued completely. Troponin elevation -Troponin elevation at greater than 400 on admission -Suspect type II NSTEMI due to demand ischemia with severe anemia from acute myocardial injury -Patient is not a cardiac catheterization candidate at this point due to his GI bleeding - Bilateral pleural effusion right more than left. Patient had 980 mL of light yellow fluid drained from right posterior lower pleural fluid. 03/19: Blood cultures negative for 48 hours. Thoracocentesis shows total WBC 218, polynuclear cells 75, mononuclear cells 143, 65.6%. Neutrophils 60, lymphocytes 19, monocytes 20 and mesothelial cells 0. Glucose 196. Total protein 1.1 LDH 61. As per light criteria seems predominantly transudate. 03/20: Pleural effusion fluid does not show any growth. IV antibiotic discontinued after 4 days of empiric treatment. 03/21: Patient had 4 days of empiric IV antibiotic and discharged on 3 more days of Augmentin to complete a total of 7 days. Prescription for Augmentin given. LUIS on CKD stage IIIb -Baseline serum creatinine is between 1.5 and 1.8 -Current serum creatinine is 2.64 -Suspect related to hypotension and acute blood loss -Hold diuretics -Blood transfusion as ordered -Continue IV fluids until blood can be initiated -Hold home Flomax 03/20: BUNs/creatinine slightly went up from 2.23-2.43. 03/21: BUN/creatinine on baseline. Estimated creatinine clearance 32 mill per minute. Follow-up in nephrology clinic. DM-2 with hyperglycemia -Patient severely hyperglycemic on admission -Obtaining a hemoglobin A1c would be futile due to his severe anemia and transfusion being initiated -Blood sugars have been up and patient has been on steroids lately -Will give NPH 15 units x 1 dose -Start Lantus at nightly 15 units -High-dose SSI every 6 hours and hold off scheduled log at this time to see what blood sugars and see what blood sugars run with basal insulin and sliding scale -Clear liquid diet for tonight and n.p.o. after midnight -When oral diet can be reinitiated would recommend cardiac/carb control at 1800 kcal 03/20 glucose is controlled. 03/21: Patient not candidate for oral hypoglycemic agent. Continue insulin. Debility/fall/generalized weakness/fatigue -Acute issues likely related to acute anemia and hypotension -PT/OT consultation -Social work/case management consultation for assistance with discharge planning -Imaging done for fall shows no fracture or acute findings on presentation Chronic hypoxic respiratory failure secondary to COPD -Patient's baseline oxygen is 4 L nasal cannula -Remains on 4 L nasal cannula with good oxygen saturations -Chest x-ray is stable -Continue as needed albuterol -Continued inhaled budesonide -Hold Lasix for now -Continue home guaifenesin -Continue home ipratropium as needed History of GI bleed/GERD -Hold home oral Protonix -IV Protonix -Previous scope in 2021 showed angiodysplastic lesions in the stomach and duodenum -Patient also has previously had a positive capsule endoscopy 03/20: Patient went for modified barium swallow. CAD/HTN/HPL -Patient with previous PCI to LAD and RCA as well as mid circumflex lesions remotely -Hold home antihypertensives due to hypotension on presentation -Hold home aspirin due to GI bleed -Okay to continue atorvastatin BPH with obstruction -Continue Proscar -Hold Flomax due to this potentially causing blood pressure drops to be alpha blockade History of VTE/PE -Patient had been off anticoagulation, discontinued probably due to bleeding related issues but this was restarted after last discharge -Patient does have an IVC filter that was placed in 2021 -TWIST TESTER was diagnosed when patient had COVID-19 infection Atrial fibrillation -Was diagnosed as new during last hospitalization -Currently in rate controlled atrial fibrillation -Hold home metoprolol for now due to severe hypotension on presentation -Will restart if blood pressure improves with blood -Discontinue apixaban that was started -patient has now proven that he cannot be on anticoagulation and will discontinue Eliquis indefinitely 03/19: Patient was converted to sinus rhythm yesterday. Amiodarone IV was Changed to oral amiodarone. History of Hodgkin lymphoma status post ABVD and radiation 2000 -Remote -No current issues -Follows as outpatient with oncology History of rheumatoid arthritis -Patient was previously treated with Biologics however is not currently on any -Continue outpatient follow-up Depression -Continue home mirtazapine -Continue home Lexapro DVT prophylaxis -SCDs -Chemoprophylaxis contraindicated due to GI bleeding and severe anemia on presentation CODE STATUS -Full code as per discussion prior to admission with patient and family however son is going to arrive soon and they will have further discussion so CODE STATUS could potentially change within the next 24 hours. Discharge note. Medications at Discharge Home Medications nitroglycerin 0.4 mg sublingual tablet (Nitrostat) 0.4 mg sublingual Q5M PRN chest pain #30 tabs 09/25/20 atorvastatin 40 mg tablet 20 mg PO QHS cholesterol 08/16/22 aspirin 81 mg tablet,delayed release 81 mg PO DAILY heart health 12/31/21 finasteride 5 mg tablet 5 mg PO DAILY prostate 08/14/22 tamsulosin 0.4 mg capsule 0.4 mg PO QHS prostate 08/14/22 multivitamin 1 tab PO DAILY vitamin 09/13/22 escitalopram oxalate 10 mg tablet 10 mg PO DAILY mood 90 days #90 tabs 10/14/22 mirtazapine 15 mg tablet (Remeron) 7.5 mg (1/2 x 15 mg) PO QHS sleep #90 tabs 11/04/22 budesonide 1 mg/2 mL suspension for nebulization 1 mg inhalation Q12H lungs 11/15/22 albuterol sulfate 2.5 mg/3 mL (0.083 %) solution for nebulization 2.5 mg (3 mL) inhalation Q4H PRN Sob &/Or Wheezing #540 mL 01/13/23 ipratropium bromide 0.02 % solution for inhalation 2.5 ml inhalation Q6H PRN shortness of breath or wheezing #150 mL 01/13/23 guaifenesin 1,200 mg tablet, extended release 12 hr (Mucus Relief ER) 1,200 mg PO BID cough 10 days #20 tabs 03/02/23 furosemide 40 mg tablet (Lasix) 40 mg PO DAILY diuretic #30 tabs 03/04/23 metoprolol tartrate 25 mg tablet 12.5 mg (1/2 x 25 mg) PO BID blood pressure 60 days #60 tabs 03/06/23 menthol 0.44 %-zinc oxide 20.6 % topical ointment (Calmoseptine) 1 applic topical 4-6XD PRN skin irritation #113 grams 03/07/23 amiodarone 200 mg tablet 200 mg PO BID 30 days #60 tabs 03/21/23 amoxicillin 500 mg-potassium clavulanate 125 mg tablet (Augmentin) 1 tab PO BID 3 days #6 tabs 03/21/23 ferrous sulfate 325 mg (65 mg iron) tablet (FeroSul) 325 mg PO LUNCH 30 days #30 tabs 03/21/23 insulin lispro 100 unit/mL subcutaneous pen (Humalog KwikPen (U-100) Insulin) See Protocol subcut ACHS #0 mL 03/21/23 pantoprazole 40 mg tablet,delayed release 40 mg PO BID reflux 3 months #180 tabs 03/21/23 polyethylene glycol 3350 17 gram oral powder packet 17 g PO DAILY #0 ea 03/21/23 sennosides 8.6 mg-docusate sodium 50 mg tablet (Stool Softener-Stimulant Laxative) 2 tab PO BID #0 tabs 03/21/23 Physical Exam Narrative Seen and examined. Patient is awake and feels better. Patient in sinus rhythm. Patient went for modified barium swallow. Patient was evaluated PT OT and speech therapy. Patient on 4 L of home oxygen and 5 L on exertion/walking. On baseline oxygen requirement. Physical exam General: Alert, Oriented x3, Cooperative, fatigue. HEENT: Atraumatic, PERRLA, EOMI, Normocephalic Oral: No Gingival or Mucosal Lesions/ Ulcerations Neck: Supple, No JVD, Negative Carotid Bruits Lungs: Air entry diminished in bilateral lung bases. Lung sounds much better clear. On 4 L of oxygen. Cardiovascular: A-fib. No murmur. Irregular heartbeat Abdomen: Bowel Sounds Present, Soft, Non Tender, Non-Distended : Ball catheter. No renal angle tenderness. No suprapubic tenderness. Extremities: Mild bilateral ankle edema. Capillary Refill Less than 3 Seconds Skin: No rashes, No breakdown Musculoskeletal: No Tenderness to Palpation of Joints or Extremities Neurological: Cranial nerves II-XII grossly intact, DTR 2+/4. No acute focal neurological deficit. Psych/Mental Status: Flat affect. Weight / BMI Weight Weight: 205 lb 7.533 oz Body Mass Index (BMI) 28.8 ABG / Lab / Microbiology Data 03/19/23 04:55 03/19/23 04:55 Laboratory: Laboratory Results - last 24 hr 03/20/23 16:08: POC Glucose 187 H 03/20/23 22:03: POC Glucose 223 H 03/21/23 06:25: POC Glucose 176 H 03/21/23 12:03: POC Glucose 192 H Microbiology: Microbiology 03/18/23 14:20 Fluid - Thoracentesis Fluid Gram Stain - Final 03/18/23 14:20 Fluid - Thoracentesis Fluid Body Fluid Culture - Preliminary No growth-Final to follow 03/18/23 14:20 Fluid - Thoracentesis Fluid Anaerobic Culture - Preliminary No growth in 48 hours. 03/16/23 14:11 Blood Culture (Wb) - Anticubital Right Blood Culture - Preliminary No growth in 48 hours. 03/16/23 15:00 Blood Culture (Wb) - Other Blood Culture - Preliminary No growth in 48 hours. 03/16/23 14:40 Urine, Catheterized Urine Culture - Final Mixed Gram Positive Organisms 03/16/23 14:40 Mucosa - Nose SARS-CoV-2, Influenza & RSV (PCR) - Final 03/16/23 14:40 Stool Stool Occult Blood (FOREST) - Final Occult Blood Positive D/C Instructions Discharge Diet: 1800 Calorie Control Diet and 2000 mg Sodium Diet Weight Bearing Status: Weight bearing as tolerated Call your doctor if you observe: Fever of 101 or Higher, Coldness, Increased Pain, Numbness or Tingling, Change in Color, Inability to urinate, Inability to have a bowel movement, Shortness of breath, Dizziness, Fainting spells, Swelling in the ankles, Chest pain, Prolonged hiccupping, Increased palpitations (irregular heartbeat) and Calf discomfort When: IN 2 WEEKS Meaningful Use Info Meaningful Use Diagnoses (Choose all that apply): None applicable Discharge Plan Admission Admit Date/Time: 03/16/23 15:14 Primary Reason for Your Visit: Acute upper GI bleed. Attending Provider: Clive Sharp Primary Care Provider: Donna Will Consulting Providers: Nadira Ricks Discharge Orders/Prescriptions Prescriptions: New ferrous sulfate [FeroSul] 325 mg (65 mg iron) Tablet 325 mg PO LUNCH 30 Days Qty: 30 2RF polyethylene glycol 3350 17 gram Powder In Packet 17 g PO DAILY Qty: 0 0RF amiodarone 200 mg Tablet 200 mg PO BID 30 Days Qty: 60 0RF sennosides-docusate sodium [Stool Softener-Stimulant Laxat] 8.6-50 mg Tablet 2 tab PO BID Qty: 0 0RF insulin lispro [Humalog KwikPen Insulin] 100 unit/mL Insulin Pen See Protocol subcut ACHS Qty: 0 0RF Protocol: 5. Sliding Scale Insulin High Dosing Condition: 150-209 mg/dl = 3 units Condition: 210-259 mg/dl = 6 units Condition: 260-324 mg/dl = 9 units Condition: 325-374 mg/dl = 12 units Condition: 375-409 mg/dl = 14 units Condition: 410-449 mg/dl = 16 units Condition: Greater than 449 call physician Protocol Text: - Use for Total Daily Dose of Insulin 81-120 units - Very insulin resistant or septic patients HIGH DOSING ALGORITHM amoxicillin-pot clavulanate [Augmentin] 500-125 mg tablet 1 tab PO BID 3 Days Qty: 6 0RF Continued nitroglycerin [Nitrostat] 0.4 mg tablet, sublingual 0.4 mg SUBLINGUAL Q5M PRN (Reason: chest pain) Qty: 30 0RF Rx Instructions: until response; do not exceed 3 doses per episode multivitamin Tablet 1 tab PO DAILY tamsulosin 0.4 mg capsule 0.4 mg PO QHS finasteride 5 mg tablet 5 mg PO DAILY atorvastatin 40 mg tablet 20 mg PO QHS budesonide 1 mg/2 mL suspension for nebulization 1 mg inhalation Q12H guaifenesin [Mucus Relief ER] 1,200 mg Tablet Extended Release 12hr 1,200 mg PO BID 10 Days Qty: 20 0RF furosemide [Lasix] 40 mg tablet 40 mg PO DAILY Qty: 30 0RF metoprolol tartrate 25 mg Tablet 12.5 mg PO BID 60 Days Qty: 60 0RF pantoprazole 40 mg tablet,delayed release (DR/EC) 40 mg PO BID 90 Days Qty: 180 1RF escitalopram oxalate 10 mg tablet 10 mg PO DAILY 90 Days Qty: 90 3RF mirtazapine [Remeron] 15 mg tablet 7.5 mg PO QHS Qty: 90 1RF ipratropium bromide 0.02 % solution 2.5 ml inhalation Q6H PRN (Reason: shortness of breath or wheezing) Qty: 150 6RF albuterol sulfate 2.5 mg /3 mL (0.083 %) solution for nebulization 2.5 mg inhalation Q4H PRN (Reason: Sob &/Or Wheezing) Qty: 540 3RF menthol-zinc oxide [Calmoseptine] 0.44-20.6 % ointment 1 applic topical 4-6XD PRN (Reason: skin irritation) Qty: 113 2RF Held aspirin 81 mg Tablet,Delayed Release (Dr/Ec) 81 mg PO DAILY Hold Instructions: Hold for 5 days. 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
--- NOTE | 2023-03-21 15:19 | PHA.DC.MC.R ---
Pharmacy [facility] has performed discharge medication reconciliation and counseling for this patient. The patient's discharge medication list was reviewed for discrepancies and discrepancies were resolved. The patient was counseled on the following discharge medications and changes in medications for homegoing were reviewed. The Reason for Use, instructions for use, and potential side effects were reviewed for all new medications. The patient's questions regarding all of their medications were answered. 1. Polyethylene glycol 17 grams daily 2. Senna/docusate 2 tabs PO BID 3. Augmentin 500 BID x 3 days 4. Insulin lispro QID ACHS per sliding scale 5. Amio 200 mg Po BID The patient was able to verbally demonstrate an understanding of their discharge medications. Medications at Discharge Home Medications nitroglycerin 0.4 mg sublingual tablet (Nitrostat) 0.4 mg sublingual Q5M PRN chest pain #30 tabs 09/25/20 atorvastatin 40 mg tablet 20 mg PO QHS cholesterol 10/09/21 aspirin 81 mg tablet,delayed release 81 mg PO DAILY heart health 12/31/21 finasteride 5 mg tablet 5 mg PO DAILY prostate 08/14/22 tamsulosin 0.4 mg capsule 0.4 mg PO QHS prostate 08/14/22 multivitamin 1 tab PO DAILY vitamin 09/13/22 escitalopram oxalate 10 mg tablet 10 mg PO DAILY mood 90 days #90 tabs 10/14/22 mirtazapine 15 mg tablet (Remeron) 7.5 mg (1/2 x 15 mg) PO QHS sleep #90 tabs 11/04/22 budesonide 1 mg/2 mL suspension for nebulization 1 mg inhalation Q12H lungs 11/15/22 albuterol sulfate 2.5 mg/3 mL (0.083 %) solution for nebulization 2.5 mg (3 mL) inhalation Q4H PRN Sob &/Or Wheezing #540 mL 01/13/23 ipratropium bromide 0.02 % solution for inhalation 2.5 ml inhalation Q6H PRN shortness of breath or wheezing #150 mL 01/13/23 guaifenesin 1,200 mg tablet, extended release 12 hr (Mucus Relief ER) 1,200 mg PO BID cough 10 days #20 tabs 03/02/23 furosemide 40 mg tablet (Lasix) 40 mg PO DAILY diuretic #30 tabs 03/04/23 metoprolol tartrate 25 mg tablet 12.5 mg (1/2 x 25 mg) PO BID blood pressure 60 days #60 tabs 03/06/23 menthol 0.44 %-zinc oxide 20.6 % topical ointment (Calmoseptine) 1 applic topical 4-6XD PRN skin irritation #113 grams 03/07/23 amiodarone 200 mg tablet 200 mg PO BID 30 days #60 tabs 03/21/23 amoxicillin 500 mg-potassium clavulanate 125 mg tablet (Augmentin) 1 tab PO BID 3 days #6 tabs 03/21/23 ferrous sulfate 325 mg (65 mg iron) tablet (FeroSul) 325 mg PO LUNCH 30 days #30 tabs 03/21/23 insulin lispro 100 unit/mL subcutaneous pen, sensor See Protocol subcut ACHS #15 mL 03/21/23 needle (disp) 32 gauge 32 gauge x 5/16 #100 ea 03/21/23 pantoprazole 40 mg tablet,delayed release 40 mg PO BID reflux 3 months #180 tabs 03/21/23 polyethylene glycol 3350 17 gram oral powder packet 17 g PO DAILY #0 ea 03/21/23 sennosides 8.6 mg-docusate sodium 50 mg tablet (Stool Softener-Stimulant Laxative) 2 tab PO BID #0 tabs 03/21/23
[2023-03-21 16:57] LABS: Bedside Glucose 171 mg/dL (74-106)
--- NOTE | 2023-03-21 17:23 | CASEMGMT ---
TARAH DEL RIO called and [facility] with resumption of services.
== END 2023-03-21 18:19 | disposition home health service (06) | DRG 377 ==
LOC: ED 15:15 → ICU 16:15 → PCU 03-19 17:18
PROVIDERS: Internal Medicine; Internal Medicine Critical Care Medicine; Internal Medicine Gastroenterology; Admitting Provider Internal Medicine; Emergency Provider Emergency Medicine; PCP Internal Medicine; Visit Provider Internal Medicine
PROC: 0DJ08ZZ Inspection of Upper Intestinal Tract, Via Natural or Artificial Opening Endoscopic (ICD-10-PCS; CPT 43235; principal; 2023-03-18 11:25)
DX: K31.811 Angiodysplasia of stomach and duodenum with bleeding (principal); R57.8 Other shock; I21.A1 Myocardial infarction type 2; D62 Acute posthemorrhagic anemia; I13.0 Hypertensive heart and chronic kidney disease with heart failure and stage 1 through stage 4 chronic kidney disease, or unspecified chronic kidney disease; N13.8 Other obstructive and reflux uropathy; I50.22 Chronic systolic (congestive) heart failure; J91.8 Pleural effusion in other conditions classified elsewhere; J96.11 Chronic respiratory failure with hypoxia; N17.9 Acute kidney failure, unspecified; I48.91 Unspecified atrial fibrillation; R55 Syncope and collapse; J44.9 Chronic obstructive pulmonary disease, unspecified; N18.32 Chronic kidney disease, stage 3b; E11.65 Type 2 diabetes mellitus with hyperglycemia; E11.22 Type 2 diabetes mellitus with diabetic chronic kidney disease; F32.A Depression, unspecified; E78.00 Pure hypercholesterolemia, unspecified; I25.10 Atherosclerotic heart disease of native coronary artery without angina pectoris; K21.9 Gastro-esophageal reflux disease without esophagitis; D72.829 Elevated white blood cell count, unspecified; N40.1 Benign prostatic hyperplasia with lower urinary tract symptoms; R53.81 Other malaise; Z99.81 Dependence on supplemental oxygen; Z79.51 Long term (current) use of inhaled steroids; Z79.82 Long term (current) use of aspirin; Z79.52 Long term (current) use of systemic steroids; Z79.01 Long term (current) use of anticoagulants; Z95.5 Presence of coronary angioplasty implant and graft; Z87.891 Personal history of nicotine dependence
CPT/HCPCS: 32555; 36600; 70450; 71045; 71046; 71250; 72125; 74230; 80048; 80053; 81001; 82009; 82274; 82550; 82803; 82945; 82947; 82962; 83605; 83615; 83735; 83880; 84100; 84145; 84157; 84484; 85014; 85018; 85025; 85610; 85730; 86850; 86900; 86901; 86920; 87040; 87070; 87075; 87086; 87088; 87205; 87631; 87641; 88108; 88305; 88313; 88341; 88342; 89050; 92526; 92610; 92611; 93005; 93306; 94640; 94668; 94762; 97162; 97166; 97530; 97535; 97803; 99252; 99285; J7030; J7040; J7050; P9016; Q9957; A4216; C8929; G0463; J2405; J3490; J7799

== ENCOUNTER 2023-04-03 11:40 | Outpatient (RCR) | payer MEDICARE, SELFPAY ==
[2023-04-03 13:06] LABS: Absolute Lymphocyte Count 2.87 X10^3/uL (0.83-4.51); Absolute Neutrophil Count 2.7 X10^3/uL (2.0-7.7); Basophil# 0.04 X10^3/uL; Basophil% 0.6 % (0-1); Eosinophil# 0.34 X10^3/uL; Eosinophils% 4.9 % (0-5); Hematocrit 26.6 % (40-54); Hemoglobin 7.8 g/dL (13.0-16.5); Lymphocyte # 2.87 X10^3/ul (0.83-4.51); Lymphocyte % 41.5 % (19-41); Mean Corp Hgb Conc 29.3 g/dL (32-36); Mean Corpuscular Hgb 28.3 pg (27.0-32.0); Mean Corpuscular Volume 96.4 fL (80-94); Mean Platelet Vol. 10.1 fl (6.2-12.0); Monocyte# 0.83 X10^3/uL; NRBC Flagged by Analyzer 0.3 % (0-5); Neutrophil # 2.71 X10^3/uL (2.7-7.7); Neutrophil % 39.3 % (47-70); Platelet Count 484 K/mm3 (150-450); RBC Distribution Width CV 17.4 % (11.6-14.6); RBC Distribution Width SD 60.5 fl (35.1-43.9); Red Blood Count 2.76 M/mm3 (4.6-6.2); White Blood Count 6.9 K/mm3 (4.4-11.0)
[2023-04-03 13:09] LABS: Anion Gap 3 (5-15); BUN 21 mg/dL (7-18); BUN/Creat Ratio 12.7 RATIO (10-20); Chloride 108 mmol/L (98-107); Creatinine, Serum 1.66 mg/dL (0.70-1.30); EST Glomerular Filtration Rate 43 mL/min (>60); Est Glom Filt Rate - Afr Amer 52 mL/min (>60); Glucose 146 mg/dL (74-106); Magnesium 1.6 mg/dL (1.6-2.6); Potassium 4.2 mmol/L (3.5-5.1); Sodium Level 141 mmol/L (136-145)
[2023-04-17 17:52] LABS: Absolute Neutrophil Count 4.6 X10^3/uL (2.0-7.7); Basophil# 0.06 X10^3/uL; Basophil% 0.8 % (0-1); Eosinophil# 0.36 X10^3/uL; Eosinophils% 4.6 % (0-5); Hematocrit 26.9 % (40-54); Hemoglobin 7.9 g/dL (13.0-16.5); Lymphocyte % 25.3 % (19-41); Mean Corp Hgb Conc 29.4 g/dL (32-36); Mean Corpuscular Hgb 28.4 pg (27.0-32.0); Mean Corpuscular Volume 96.8 fL (80-94); Mean Platelet Vol. 10.9 fl (6.2-12.0); Monocyte# 0.74 X10^3/uL; Monocyte% 9.4 % (0-10); NRBC Flagged by Analyzer 0 % (0-5); Neutrophil # 4.62 X10^3/uL (2.7-7.7); Neutrophil % 58.4 % (47-70); Platelet Count 338 K/mm3 (150-450); RBC Distribution Width CV 17.4 % (11.6-14.6); RBC Distribution Width SD 61.5 fl (35.1-43.9); Red Blood Count 2.78 M/mm3 (4.6-6.2); White Blood Count 7.9 K/mm3 (4.4-11.0)
[2023-04-17 18:19] LABS: Iron 49 ug/dL (65-175); Iron Binding Capacity,Total 238 ug/dL (250-450); PERCENT IRON SATURATION 20.6 % (15.0-55.0)
== END 2023-04-24 18:00 | disposition home or self-care (01) ==
LOC: HHLAB 11:40
PROVIDERS: PCP Internal Medicine; Referring Provider Internal Medicine; Visit Provider Internal Medicine
DX: E11.65 Type 2 diabetes mellitus with hyperglycemia (principal); J90 Pleural effusion, not elsewhere classified; K92.2 Gastrointestinal hemorrhage, unspecified; D50.0 Iron deficiency anemia secondary to blood loss (chronic)
CPT/HCPCS: 80048; 83540; 83550; 83735; 85025

== ENCOUNTER → 2023-04-25 | Outpatient (CLI) | payer MEDICARE, SELFPAY ==
--- OUTSIDE RECORDS SUMMARY | 2023-04-25 09:27 | XMS RPT_ITS | CCD ---
Author Name Unknown Address [email or web address] [place] [address] Organization [facility] Care Team Providers Care Barrel Filler Name Role Phone Unavailable Primary Care Provider Unavailabl e Results Test Name Value Interpretation Reference Range Facil ity Encounters Encounter Date Encounter Type Care Provider Facility Start: 03-21-2023 ambulatory Adri Perez RN [facility] Clinical Communication Start: 03-21-2023 Patient encounter procedure Adri Perez RN [facility] Clinical Communication Social History Date Type Detail Facility [facility] Start: 1950 Sex Assigned At Not on file [facility] Gender identity Not on file [facility] Telephone encounter Note 03-21-2023 Telephone Encounter - Adri Perez RN - 03/21/2023 8:07 PM EST Note Date & Type Note Facility 03-21-2023 Telephone encounter Note Form atting of this note might be different from the original. S: Pt's calling [facility] Nurse Advice Line regarding prescription problem. B: Pt was discharged today from [facility]. A: states [facility] insurance will not cover pt's insulin that was prescribed at discharge. wants to know why, and also what he can take instead. R: Advised that she has reached the [facility] Nurse Advice Line, and to please call the other number on her card regarding prescriptions. Caller ended call. Reason for Disposition [1] Follow-up call to recent contact AND [2] information only call, no triage required Protocols used: Information Only Call - No [id number] [facility] Note 03-21-2023 Telephone Encounter - Adri Perez RN - 03/21/2023 8:07 PM EST Note Date & Type Note Facility 03-21-2023 Miscellaneous Notes Formattin g of this note might be different from the original. S: Pt's calling [facility] Nurse Advice Line regarding prescription problem. B: Pt was discharged today from [facility]. A: states [facility] insurance will not cover pt's insulin that was prescribed at discharge. wants to know why, and also what he can take instead. R: Advised that she has reached the [facility] Nurse Advice Line, and to please call the other number on her card regarding prescriptions. Caller ended call. Reason for Disposition [1] Follow-up call to recent contact AND [2] information only call, no triage required Protocols used: Information Only Call - No [id number] documented in this encounter [facility] Summary Purpose Family History No Family History Records FoundNo Family History Records Found Advance Directives No Advanced Directives Records FoundNo Advanced Directives Records Found Additional Source Comments (unrecognized sect ion and content) No Status Records FoundNo Status Records Found INFORMATION SOURCE (unrecogn ized section and content) DATE CREATED AUTHOR AUTHOR'S ORGANIZ ATION 03/23/2023 [facility] Reason for Visit (unrecogniz ed section and content) FOR RECORDS PERTAINING TO [...] BE BASED ON THE PRIMARY CLINICAL RECORDS. [employer] provides no warranty or guarantee of the accuracy or completeness of information in this document.
[2023-04-25 11:02] LABS: Absolute Lymphocyte Count 1.48 X10^3/uL (0.83-4.51); Basophil# 0.05 X10^3/uL; Basophil% 0.7 % (0-1); Eosinophil# 0.44 X10^3/uL; Eosinophils% 6.4 % (0-5); Hematocrit 25.5 % (40-54); Hemoglobin 7.6 g/dL (13.0-16.5); Lymphocyte # 1.48 X10^3/ul (0.83-4.51); Lymphocyte % 21.7 % (19-41); Mean Corp Hgb Conc 29.8 g/dL (32-36); Mean Corpuscular Hgb 28.3 pg (27.0-32.0); Mean Corpuscular Volume 94.8 fL (80-94); Mean Platelet Vol. 11.1 fl (6.2-12.0); Monocyte# 0.75 X10^3/uL; NRBC Flagged by Analyzer 0 % (0-5); Neutrophil # 4.04 X10^3/uL (2.7-7.7); Neutrophil % 59.2 % (47-70); Platelet Count 269 K/mm3 (150-450); RBC Distribution Width CV 17.4 % (11.6-14.6); RBC Distribution Width SD 60.3 fl (35.1-43.9); Red Blood Count 2.69 M/mm3 (4.6-6.2); White Blood Count 6.8 K/mm3 (4.4-11.0)
[2023-04-25 11:17] LABS: ALB/GLOB Ratio 0.8 RATIO (0.9-2.4); AST(SGOT) 6 U/L (15-37); Alanine Aminotransfer ALT/SGPT 13 U/L (16-61); Albumin, Serum 2.7 g/dL (3.2-5.0); Alkaline Phosphatase 96 U/L (45-117); Anion Gap 1 (5-15); BUN 27 mg/dL (7-18); BUN/Creat Ratio 19.3 RATIO (10-20); Calcium,Total 8.6 mg/dL (8.5-10.1); Chloride 111 mmol/L (98-107); EST Glomerular Filtration Rate 53 mL/min (>60); Est Glom Filt Rate - Afr Amer 64 mL/min (>60); Ferritin 57 ng/mL (26-388); Globulin 3.3 g/dL (2.2-4.2); Glucose 192 mg/dL (74-106); Iron 28 ug/dL (65-175); Iron Binding Capacity,Total 212 ug/dL (250-450); LDH 163 U/L (87-241); PERCENT IRON SATURATION 13.2 % (15.0-55.0); Potassium 4.1 mmol/L (3.5-5.1); Sodium Level 143 mmol/L (136-145)
== END | disposition home or self-care (01) ==
LOC: LAB 09:00
PROVIDERS: PCP Internal Medicine; Visit Provider Internal Medicine Medical Oncology
DX: D50.9 Iron deficiency anemia, unspecified (principal)
CPT/HCPCS: 36415; 80053; 82728; 83540; 83550; 83615; 85025

== ENCOUNTER → 2023-05-07 | Outpatient (CLI) | payer MEDICARE, SELFPAY ==
--- OUTSIDE RECORDS SUMMARY | 2023-05-07 09:21 | XMS RPT_ITS | CCD ---
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 Name Role Phone Unavailable Primary Care Provider Unavailabl e Results Test Name Value Interpretation Reference Range Facil ity Encounters Encounter Date Encounter Type Care Provider Facility Start: 03-21-2023 ambulatory Adri Perez RN [facility] Clinical Communication Start: 03-21-2023 Patient encounter procedure Adri Perez RN [facility] Clinical Communication Social History Date Type Detail [facility] Start: 1950 Sex Assigned At Not on file S [facility] Gender identity Not on file [facility] Telephone encounter Note 03-21-2023 Telephone Encounter - Adri Perez RN - 03/21/2023 8:07 PM EST Note Date & Type Note Facility 03-21-2023 Telephone encounter Note Form atting of this note might be different from the original. S: Pt's calling [facility] Nurse Advice Line regarding prescription problem. B: Pt was discharged today from [facility] [place]. A: states [facility] insurance will not cover pt's insulin that was prescribed at discharge. wants to know why, and also what he can take instead. R: Advised that she has reached the [facility] Nurse Advice Line, and to please call the other number on her card regarding prescriptions. Caller ended call. Reason for Disposition [1] Follow-up call to recent contact AND [2] information only call, no triage required Protocols used: Information Only Call - No [id number] [facility] Note 03-21-2023 Telephone Encounter - Adri Perez RN - 03/21/2023 8:07 PM EST Note Date & Type Note Facility 03-21-2023 Miscellaneous Notes Formattin g of this note might be different from the original. S: Pt's calling [facility] Nurse Advice Line regarding prescription problem. B: Pt was discharged today from [facility] [place]. A: states [facility] insurance will not cover pt's insulin that was prescribed at discharge. wants to know why, and also what he can take instead. R: Advised that she has reached the [facility] Nurse Advice Line, and to please call the other number on her card regarding prescriptions. Caller ended call. Reason for Disposition [1] Follow-up call to recent contact AND [2] information only call, no triage required Protocols used: Information Only Call - No [id number] documented in this encounter [facility] Summary Purpose Family History No Family History Records FoundNo Family History Records Found Advance Directives No Advanced Directives Records FoundNo Advanced Directives Records Found Additional Source Comments (unrecognized sect ion and content) No Status Records FoundNo Status Records Found INFORMATION SOURCE (unrecogn ized section and content) DATE CREATED AUTHOR AUTHOR'S ORGANIZ ATION 03/23/2023 [facility] Reason for Visit [...] BE BASED ON THE PRIMARY CLINICAL RECORDS. [employer] provides no warranty or guarantee of the accuracy or completeness of information in this document.
[2023-05-07 09:37] LABS: Absolute Lymphocyte Count 0.96 X10^3/uL (0.83-4.51); Basophil# 0.03 X10^3/uL; Basophil% 0.3 % (0-1); Eosinophil# 0.21 X10^3/uL; Eosinophils% 2.3 % (0-5); Hematocrit 25.2 % (40-54); Hemoglobin 7.4 g/dL (13.0-16.5); Lymphocyte # 0.96 X10^3/ul (0.83-4.51); Lymphocyte % 10.6 % (19-41); Mean Corp Hgb Conc 29.4 g/dL (32-36); Mean Corpuscular Hgb 28.4 pg (27.0-32.0); Mean Corpuscular Volume 96.6 fL (80-94); Mean Platelet Vol. 10.9 fl (6.2-12.0); Monocyte# 0.77 X10^3/uL; Monocyte% 8.5 % (0-10); NRBC Flagged by Analyzer 0 % (0-5); Neutrophil # 6.95 X10^3/uL (2.7-7.7); Neutrophil % 76.9 % (47-70); Platelet Count 301 K/mm3 (150-450); RBC Distribution Width CV 17.1 % (11.6-14.6); RBC Distribution Width SD 60.3 fl (35.1-43.9); Red Blood Count 2.61 M/mm3 (4.6-6.2); White Blood Count 9.1 K/mm3 (4.4-11.0)
[2023-05-07 09:44] LABS: Anion Gap 6 (5-15); BUN 41 mg/dL (7-18); BUN/Creat Ratio 23.6 RATIO (10-20); Calcium,Total 8.9 mg/dL (8.5-10.1); Chloride 107 mmol/L (98-107); Creatinine, Serum 1.74 mg/dL (0.70-1.30); EST Glomerular Filtration Rate 41 mL/min (>60); Est Glom Filt Rate - Afr Amer 50 mL/min (>60); Glucose 198 mg/dL (74-106); Potassium 4.3 mmol/L (3.5-5.1); Sodium Level 142 mmol/L (136-145)
== END | disposition home or self-care (01) ==
LOC: LAB 08:47
PROVIDERS: PCP Internal Medicine; Visit Provider Internal Medicine
DX: D62 Acute posthemorrhagic anemia (principal); Z79.899 Other long term (current) drug therapy; Z51.81 Encounter for therapeutic drug level monitoring
CPT/HCPCS: 36415; 80048; 85025

== ENCOUNTER → 2023-05-12 | Outpatient (CLI) | payer MEDICARE, SELFPAY ==
[2023-05-12 11:45] LABS: BNP,B-Type NATRIURETIC PEPTIDE 523.9 pg/mL (0-100)
== END | disposition home or self-care (01) ==
LOC: LAB 11:06
PROVIDERS: PCP Internal Medicine; Visit Provider Nurse Practitioner Gerontology
DX: I50.20 Unspecified systolic (congestive) heart failure (principal)
CPT/HCPCS: 36415; 83880

== ENCOUNTER → 2023-06-05 | Outpatient (CLI) | payer MEDICARE, SELFPAY ==
[2023-06-05] VITALS (13 sets, daily range): BP systolic 113–139; BP diastolic 49–70; PULSE 69–77; RESP 16–24; TEMP 35.8; O2SAT 20–96; BMI 33.3
--- NOTE | 2023-06-05 | BMB_PTH ---
PATIENT: SAL ALONZO Jr. LOC: CT U#:[id number] AGE/SX: 72/M ROOM: RE06/05/[address]: Dr. Tobi Zapata MD : 1950 BED: DIS: 06/05/2023 SPEC #: [id number] RECD: 06/05/23 09:55 STATUS: MICHELLE REQ #: [id number] SURY: 06/05/23 00:[address]: Tobi Zapata DEPT: BONE MARROW RECD BY: Jayne Gold ENTERED: 06/05/23 09:55 SP TYPE: BMB RONNY DR: Dr. Donna Will MD Tissues: A - Bone marrow, NOS B - Bone marrow, NOS C - Bone marrow, NOS Procedures: Decalcification bone/plaque Bone Marrow Aspiration Bone Marrow Core Biopsy Iron Stain Bone Marrow HEADER OPERATION: Ct guided bone marrow biopsy and aspiration PRE-OP DIAGNOSIS: Anemia TISSUE SUBMITTED: A - Core, B - Clot, C - Smears, and send outs (flow, cytogenetics) BONE MARROW DIAGNOSIS Bone marrow core, clot and aspirate smears: Normocellular marrow with trilineage hematopoiesis. Peripheral blood, macrocytic anemia. See comment. KENNETH/mr 06/10/23 COMMENT A&B. Immunohistochemistry ([id number]) supports the above diagnosis. Flow cytometric study from [facility] shows <1% myeloblasts with rare phenotypic aberrancy. No monoclonal B cell population is noted. Rare monocytes show aberrant expression of CD56. Complete report is viewable in patient's EMR. Cytogenetic and FISH studies are pending. Case has been reviewed in consultation with Dr. Porter who concurs with the above diagnosis. IDC:AM BONE MARROW STUDY Slides are reviewed. CBC DATE: 06/05/23 WBC 7.5; RBC 3.18; HGB 9.2; HCT 30.5; MCV 95.9; RDW 17.9; PLTS 242,000 SEGS 61.9%; LYMPHS 24.6%; MONOS 10.2%; EOS 2.0%; BASOS 0.4% Immature granulocytes: 0.9% PERIPHERAL SMEAR: Submitted. RBC: Macrocytic anemia. WBC: Unremarkable. The WBC count is compatible to as reported above. PLTS: Adequate. BONE MARROW ASPIRATE DIFFERENTIAL: 200 cell count. Blasts % (normal 0-2): 0 Promyelocytes % (normal 1-5): 0 Myelocytes and metamyelocytes % (normal 17-41): 12 Bands and Segs % (normal 15-32): 50 Eos % (normal 1-6): 2 Basos % (normal 0-1): 0 Monocytes % (normal 0-4): 0 Erythroid Precursors % (normal 17-35): 28 Lymphocytes % (normal 7-13): 8 Plasma Cells % (normal 0-2): 0 ASPIRATE FINDINGS: Site: Not specified. Paucispicular Hypocellular M/E ratio: 2.3 (Normal 1.5-4.0) Megakaryocytes: Present and normal morphology. Erythropoiesis: Normoblastic. Granulopoiesis: Progressive and unremarkable. Comment: Hemodilution is noted. CORE BIOPSY FINDINGS: Site: Not specified Adequacy: Adequate Cellularity: 50% M/E ratio: Within normal limits. Megakaryocytes: Present and adequate in number. Bony trabeculae: Unremarkable. Granulomas: Absent. Lymphoid aggregate: Absent. Atypical infiltrate: Absent. Comment: IHC ([id number]) does not show increased number of blasts. ASPIRATE CLOT FINDINGS: Site: Not specified Marrow particles: Numerous Cellularity: 50% M/E ratio: Within normal limits. Megakaryocytes: Present and adequate in number. Granulomas: Absent. Lymphoid aggregates: Absent. Atypical infiltrates: Absent. Comment: IHC ([id number]) does not show increased number of blasts. SPECIAL STAINS WITH MATCHED CONTROLS: Iron: 1+, atypical or ring sideroblasts are not seen. Reticulin: No significant increase of reticulin fibers is noted. PAS: Highlights myeloid cells and megakaryocytes. BONE MARROW GROSS A - Received is a container labeled with the patient's name and designated Bone marrow. The specimen consists of multiple fragments of bone mixed with blood clot measuring in aggregate 4.5 x 0.3 x 0.1 cm after decalcification. The specimen is totally submitted in one cassette after decalcification. B - Received labeled with the patient's name and designated Bone marrow is a specimen that consists of approximately 3 ml of bloody fluid that on filtration yields multiple minute fragments of blood clots measuring in aggregate 2.5 x 1.5 x 0.1 cm. The specimen is totally submitted in one cassette. C - Also received are 10 unstained slides and 1 peripheral stained slide. The unstained slides are submitted for appropriate staining. Also received are 1 green top tubes which are sent to our reference lab for flow, cytogenetics, AML, MDS. SJ/mr 06/05/23 TC:5 CPT: 77436, 56024, 59068 x2, 21281 x3, 10046 ADDENDUM ADDENDUM ADDENDUM ADDENDUM ADDENDUM ADDENDUM ADDENDUM ADDENDUM ADDENDUM ADDENDUM ADDENDUM ADDENDUM ADDENDUM ADDENDUM ADDENDUM 06/16/2023 09:29 ADDENDUM 06/16/2023 09:29 ADDENDUM 06/16/2023 09:29 ADDENDUM 06/16/2023 09:29 ADDENDUM 06/16/2023 09:29 CYTOGENETICS REPORT FROM [facility] CYTOGENETIC RESULT: 46, XY (20) INTERPRETATION: Normal male karyotype was observed in twenty metaphases analyzed. MDS FISH PANEL: Normal MDS panel INTERPRETATION: Negative AML FISH PANEL: Normal AML panel INTERPRETATION: Negative Please see complete report in e-chart or EMR
--- NOTE | 2023-06-05 | IMM_PTH ---
PATIENT: SAL ALONZO Jr. LOC: CT U#:[id number] AGE/SX: 72/M ROOM: RE06/05/[address]: Dr. Tobi Zapata MD : 1950 BED: DIS: 06/05/2023 SPEC #: [id number] RECD: 06/09/23 13:09 STATUS: MICHELLE REQ #: [id number] SURY: 06/05/23 00:[address]: Tobi Zapata DEPT: IMMUNOHISTOCHEMISTRY RECD BY: Luis Oakes ENTERED: 06/09/23 13:10 SP TYPE: IMMUNO OTHR DR: Dr. Donna Will MD Tissues: A - Bone marrow of iliac crest B - Bone marrow of iliac crest Procedures: CD34 (initial) PHYSICIAN & INSTITUTION [place] [id number] SPECIMEN INFORMATION: Tissue Source: A- Bone marrow core, B- Bone marrow clot Clinical Info: Anemia Specimen Number: [id number] CPT code: 72853 METHODOLOGY: Deparaffinized sections of prefer/formalin-fixed tissue or PAP/DQ stained slides are incubated with monoclonal/polyclonal antibodies/oligonucleotide probes. Localization is made via biotin free immunoperoxidase method. Appropriate controls are performed and reacted as expected. Results on target cell population are indicated in the following table: RESULTS: ANTIBODY / CLONE RESULT Block A CD34 (QBEnd-10) negative Block B CD34 (QBEnd-10) negative These tests were developed and their performance characteristics determined by [facility]. They may not have been cleared or approved by the U.S. Food and Drug Administration. The FDA has determined that such clearance or approval is not necessary. The above immunohistochemical/dualISH markers are ordered and reviewed by the Pathologist. INTERPRETATION: A. Bone marrow core: Increased number of blasts are not seen. B. Bone marrow clot: Increased number of blasts are not seen. SJ/ 06/10/23
[2023-06-05 08:12] LABS: Absolute Lymphocyte Count 1.84 X10^3/uL (0.83-4.51); Absolute Neutrophil Count 4.6 X10^3/uL (2.0-7.7); Basophil# 0.03 X10^3/uL; Basophil% 0.4 % (0-1); Eosinophil# 0.15 X10^3/uL; Hematocrit 30.5 % (40-54); Hemoglobin 9.2 g/dL (13.0-16.5); Lymphocyte # 1.84 X10^3/ul (0.83-4.51); Lymphocyte % 24.6 % (19-41); Mean Corp Hgb Conc 30.2 g/dL (32-36); Mean Corpuscular Hgb 28.9 pg (27.0-32.0); Mean Corpuscular Volume 95.9 fL (80-94); Mean Platelet Vol. 11.1 fl (6.2-12.0); Monocyte# 0.76 X10^3/uL; Monocyte% 10.2 % (0-10); NRBC Flagged by Analyzer 0.4 % (0-5); Neutrophil # 4.62 X10^3/uL (2.7-7.7); Neutrophil % 61.9 % (47-70); Platelet Count 242 K/mm3 (150-450); RBC Distribution Width CV 17.9 % (11.6-14.6); RBC Distribution Width SD 61.8 fl (35.1-43.9); Red Blood Count 3.18 M/mm3 (4.6-6.2); White Blood Count 7.5 K/mm3 (4.4-11.0)
[2023-06-05 08:26] LABS: International Normalized Ratio 1.1; Prothrombin Time (Protime)PT. 14.1 SECONDS (11.7-14.9)
[2023-06-05 08:27] LABS: Partial Thromboplast Time 26.2 Seconds (24.1-36.2)
[2023-06-05] MEDS: 0.9% Normal Saline (250mL Bag) 250 ML 15 ML IV (09:05)
[2023-06-05] MEDS: Midazolam 2 MG/2 ML Syringe IV (09:06)
[2023-06-05] MEDS: fentaNYL 100 MCG/2 ML Ampul IV (09:08)
[2023-06-05] MEDS: Lidocaine 2% (20 ml mdv) 20 ML Vial INFILT (09:20)
--- NOTE | 2023-06-05 10:06 | PCM.OP.PRO ---
Procedure Report Date of Procedure: 06/05/23 Assessment & Plan Assessment/Plan (1) 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: PLAN: PROCEDURE: CT guided bone marrow biopsy and aspiration of the right iliac bone ORDERING PROVIDER: Dr. Zapata INDICATION: Male, 72 years old. Anemia. PROVIDER: Bethany Castro APRN-PSYCHIATRIC NURSE PRACTITIONER RADIATION DOSAGE (If Supplied By Facility): CTDIvol = 22.80 mGy, DLP = 573.43 mGycm. Individualized dose optimization techniques were utilized. CONSENT: The risks, benefits, and alternatives to the procedure were explained to the patient. The specific risk of hemorrhage requiring further treatment or intervention was detailed and accepted. Follow-up instructions were discussed with the patient as well. Written informed consent was obtained. PRE-PROCEDURE SEDATION ASSESSMENT: Current history and physical dictated by referring physician and reviewed. No clinical changes since date of exam. Patient has an ASA Class of 2. PROCEDURAL SEDATION PROTOCOL: The Drugs used were: 2 mg Versed, IV, and 50 mcg Fentanyl, IV. The sedation time was: 22 minutes, starting at 9:06 AM and terminated at 9:28 AM. The procedural sedation protocol was independently monitored by the department nurse. TECHNIQUE The patient was brought into the CT suite and placed in the prone position. An appropriate entry site was identified. The overlying skin was prepped and draped in the usual sterile fashion. 2% lidocaine was administered subcutaneously for local anesthesia. Under CT guidance, a bone marrow biopsy and bone marrow aspirate were performed of the right iliac bone using an 11-gauge bone marrow biopsy kit. Hematology staff was present to prepare the specimen slides and transport the specimen to the laboratory for analysis. Hemostasis was obtained, and a sterile occlusive dressing was applied. The patient tolerated the procedure well without immediate complications. IMPRESSION: Successful CT guided bone marrow biopsy and aspiration of the right iliac bone as described. Procedural Sedation protocol utilized with independent monitoring by the department nurse. Procedures Radiology Radiology CT Procedures: 35335 Biopsy Bone Marrow
--- NOTE | 2023-06-05 10:25 | ECHOLC_ITS ---
Reason For Study: HFrEF Procedure This was a limited 2D transthoracic echocardiogram. The study was technically difficult. Contrast injection was performed. Exam performed in department. Left Ventricle Mildly dilated left ventricle. The estimated ejection fraction is 25 %. There is severe global hypokinesis of the left ventricle. Right Ventricle Normal RV size. Normal systolic function. Atria Normal left atrium. Normal right atrium. Mitral Valve Normal mitral valve. Tricuspid Valve Normal tricuspid valve. Aortic Valve The aortic valve is not well visualized. Pulmonic Valve The pulmonic valve is not well visualized. Great Vessels Normal aortic root. Pericardium/Pleural No pericardial effusion. Medication 22 gauge I.V. with prn adaptor inserted into right arm. Diluted definity 3ml given slow IV push to enhance endocardial definition. MMode/2D Measurements & Calculations LVIDd: 6.2 cm IVSd: 1.1 cm LVIDs: 5.4 cm LVPWd: 0.78 cm LVAd ap4: 46.1 cm2 FS: 11.8 % LVLd ap4: 9.4 cm EDV(MOD-sp4): 187.0 ml EDV(sp4-el): 192.3 ml LVAs ap4: 36.0 cm2 LVLs ap4: 8.8 cm ESV(MOD-sp4): 126.8 ml ESV(sp4-el): 124.4 ml EF(MOD-sp4): 32.2 % EF(sp4-el): 35.3 % LVAd ap2: 53.8 cm2 SV(MOD-sp4): 60.1 ml SV(MOD-sp2): 67.8 ml LVLd ap2: 10.0 cm EDV(MOD-sp2): 244.8 ml EDV(sp2-el): 246.1 ml LVAs ap2: 42.8 cm2 LVLs ap2: 9.0 cm ESV(MOD-sp2): 177.0 ml ESV(sp2-el): 173.5 ml EF(MOD-sp2): 27.7 % SV(sp4-el): 67.9 ml Time Measurements MV dec time: 0.18 sec Doppler Measurements & Calculations MV E max oliver: 103.2 cm/sec Lat Peak E' Oliver: 6.5 cm/sec Med Peak E' Oliver: 5.7 cm/sec MV A max oliver: 91.8 cm/sec E/E' lat: 15.9 E/E' med: 18.0 MV E/A: 1.1 MV dec slope: 565.3 cm/sec2 Ao V2 max: 153.8 cm/sec LV V1 max: 97.0 cm/sec Ao max P.5 mmHg LV V1 max P.8 mmHg Ao V2 mean: 107.7 cm/sec LV V1 mean P.8 mmHg Ao mean P.3 mmHg LV V1 mean: 61.7 cm/sec Ao V2 VTI: 34.6 cm LV V1 VTI: 20.0 cm AV (velocity ratio): 0.58 ECHO/Echo Limited w/Contrast Interpretation Summary Mildly dilated left ventricle. The estimated ejection fraction is 25 %. There is severe global hypokinesis of the left ventricle. Contrast injection was performed. Ordering Physician: Jennifer Galdamez Referring Physician: Tobi Zapata Performed By: Nathan Correa RCS
== END | disposition home or self-care (01) ==
PROVIDERS: PCP Internal Medicine; Referring Provider Internal Medicine Medical Oncology; Visit Provider Internal Medicine Medical Oncology
DX: D50.9 Iron deficiency anemia, unspecified (principal); I50.20 Unspecified systolic (congestive) heart failure; I25.10 Atherosclerotic heart disease of native coronary artery without angina pectoris; M79.89 Other specified soft tissue disorders
CPT/HCPCS: 38222; 36415; 77012; 85025; 85610; 85730; 88305; 88311; 88313; 88342; 93308; 99156; J7050; C8924

== ENCOUNTER → 2023-09-04 | Outpatient (CLI) | payer MEDICARE, SELFPAY ==
--- NOTE | 2023-09-04 09:03 | ECHOLC_ITS ---
Reason For Study: HFrEF Procedure This was a limited 2D transthoracic echocardiogram. The study was technically difficult. Contrast injection was performed. Exam performed in department. Left Ventricle Moderately dilated left ventricle. The left ventricular ejection fraction is 25 %. There is severe global hypokinesis of the left ventricle. Right Ventricle Normal RV size. Normal systolic function. Atria Normal left atrium. Mitral Valve There is mild to moderate mitral annular calcification. Tricuspid Valve Normal tricuspid valve. Mild (1+) tricuspid valve insufficiency. Pulmonary artery systolic pressure is 30 mmHg. Aortic Valve The aortic valve is not well visualized. Great Vessels Normal aortic root. The pulmonary is not well visualized. Normal inferior vena cava. Pericardium/Pleural No pericardial effusion. Medication 22 gauge I.V. with prn adaptor inserted into right arm. Diluted definity 1.5ml given slow IV push to enhance endocardial definition. MMode/2D Measurements & Calculations LVIDd: 6.5 cm IVSd: 1.1 cm LVAd ap4: 45.3 cm2 LVIDs: 5.4 cm LVPWd: 1.3 cm LVLd ap4: 9.7 cm FS: 16.5 % EDV(MOD-sp4): 175.6 ml EDV(sp4-el): 179.3 ml LVAs ap4: 33.7 cm2 LVLs ap4: 8.9 cm ESV(MOD-sp4): 107.0 ml ESV(sp4-el): 107.9 ml EF(MOD-sp4): 39.1 % EF(sp4-el): 39.8 % LVAd ap2: 47.5 cm2 SV(MOD-sp4): 68.6 ml SV(MOD-sp2): 82.4 ml LVLd ap2: 9.6 cm EDV(MOD-sp2): 197.6 ml EDV(sp2-el): 198.8 ml LVAs ap2: 35.0 cm2 LVLs ap2: 9.3 cm ESV(MOD-sp2): 115.1 ml ESV(sp2-el): 112.7 ml EF(MOD-sp2): 41.7 % SV(sp4-el): 71.4 ml Doppler Measurements & Calculations Ao V2 max: 204.4 cm/sec LV V1 max: 106.2 cm/sec PA V2 max: 101.4 cm/sec Ao max P.8 mmHg LV V1 max P.7 mmHg Ao V2 mean: 140.3 cm/sec LV V1 mean P.5 mmHg Ao mean P.0 mmHg LV V1 mean: 71.2 cm/sec Ao V2 VTI: 50.7 cm LV V1 VTI: 25.1 cm AV (velocity ratio): 0.50 TR max luis enrique: 263.2 cm/sec TR max P.7 mmHg ECHO/Echo Limited w/Contrast Interpretation Summary The left ventricular ejection fraction is 25 %. Moderately dilated left ventricle. There is severe global hypokinesis of the left ventricle. Mild (1+) tricuspid valve insufficiency. Pulmonary artery systolic pressure is 30 mmHg. Contrast injection was performed. Ordering Physician: Jennifer Galdamez Referring Physician: Donna Will M.D. Performed By: Brodwolf, Nathan, RCS
== END | disposition home or self-care (01) ==
PROVIDERS: PCP Internal Medicine; Referring Provider Nurse Practitioner Gerontology; Visit Provider Nurse Practitioner Gerontology
DX: I50.20 Unspecified systolic (congestive) heart failure (principal); I36.1 Nonrheumatic tricuspid (valve) insufficiency
CPT/HCPCS: 93308; Q9957; A4216; C8924

== ENCOUNTER → 2023-09-24 | Outpatient (CLI) | payer MEDICARE, SELFPAY ==
[2023-09-24 13:14] LABS: Anion Gap 5 (5-15); BUN 47 mg/dL (7-18); BUN/Creat Ratio 23.9 RATIO (10-20); Calcium,Total 9.1 mg/dL (8.5-10.1); Chloride 103 mmol/L (98-107); Creatinine, Serum 1.97 mg/dL (0.70-1.30); EST Glomerular Filtration Rate 36 mL/min (>60); Est Glom Filt Rate - Afr Amer 43 mL/min (>60); Glucose 434 mg/dL (74-106); Potassium 6.2 mmol/L (3.5-5.1); Sodium Level 138 mmol/L (136-145)
== END | disposition home or self-care (01) ==
LOC: BIMLAB 11:38
PROVIDERS: PCP Internal Medicine; Visit Provider Physician Assistant Medical
DX: I50.20 Unspecified systolic (congestive) heart failure (principal)
CPT/HCPCS: 36415; 80048

== ENCOUNTER → 2023-09-29 | Outpatient (CLI) | payer MEDICARE, SELFPAY ==
[2023-09-29 15:33] LABS: Anion Gap 4 (5-15); BUN 47 mg/dL (7-18); BUN/Creat Ratio 21.9 RATIO (10-20); Calcium,Total 9.1 mg/dL (8.5-10.1); Chloride 100 mmol/L (98-107); Creatinine, Serum 2.15 mg/dL (0.70-1.30); EST Glomerular Filtration Rate 32 mL/min (>60); Est Glom Filt Rate - Afr Amer 39 mL/min (>60); Glucose 344 mg/dL (74-106); Potassium 5.2 mmol/L (3.5-5.1); Sodium Level 136 mmol/L (136-145)
== END | disposition home or self-care (01) ==
LOC: BIMLAB 11:59
PROVIDERS: PCP Internal Medicine; Referring Provider Physician Assistant Medical; Visit Provider Physician Assistant Medical
DX: I50.20 Unspecified systolic (congestive) heart failure (principal)
CPT/HCPCS: 36415; 80048

== ENCOUNTER → 2023-10-31 | Outpatient (CLI) | payer MEDICARE, SELFPAY ==
--- NOTE | 2023-10-31 17:26 | STRESSREP ---
Stress Test Report Pharmacologic myocardial perfusion stress test. 73-year-old man with a history of coronary artery disease Resting EKG demonstrates sinus rhythm with a rate of 99 bpm. Resting blood pressure is 108/70 mmHg. 0.4 mg of regadenoson was infused per usual protocol followed by rapid intravenous saline flush injection. Continuous EKG monitoring was performed. The maximum heart rate was 115 bpm which was 78 beats of max impacted heart rate the maximum workload was 1 metabolic equivalent. At rest there were no ST or T wave changes noted to suggest ischemia and at peak infusion nonspecific ST changes were noted which did not meet the criteria for ischemia. No clinical angina is noted. The final blood pressure was 118/60 mmHg. Myocardial perfusion protocol. 11.5 mCi of technetium 99m sestamibi was injected at rest. 0.4 mg of regadenoson was infused per usual protocol. At peak infusion 34 point mCi of technetium 99m sestamibi was injected stress images were obtained stress and rest images were reconstructed and compared in the short axis vertical long and horizontal long axis. Gated images were also obtained. Perfusion SPECT analysis: Review of the stress images demonstrate reduced perfusion noted in the anterior wall anterior apical and septal regan. The resting images demonstrate a similar pattern with reduction in the anterior anteroseptal and anterior apical regan. The above is suggestive of an ischemic cardiomyopathy. No obvious areas of ischemia however are noted. Gated SPECT analysis: The gated ejection fraction is 22%. Conclusion: pharmacologic myocardial perfusion stress test with no areas of ischemia noted but previous anterior apical and anteroseptal infarct present. Reduced ejection fraction.
== END | disposition home or self-care (01) ==
PROVIDERS: PCP Internal Medicine; Referring Provider Physician Assistant Medical; Visit Provider Physician Assistant Medical
DX: R06.09 Other forms of dyspnea (principal); I50.20 Unspecified systolic (congestive) heart failure; I11.0 Hypertensive heart disease with heart failure; Z95.5 Presence of coronary angioplasty implant and graft
CPT/HCPCS: 78452; 93017; A9500; A4216; J2785

== ENCOUNTER 2023-11-09 16:33 | Inpatient (IN) | payer MEDICARE, SELFPAY ==
[2023-11-09] VITALS (22 sets, daily range): BP systolic 109–150; BP diastolic 49–72; PULSE 68–96; RESP 12–32; TEMP 36.6–38; O2SAT 79–99; BMI 29.7; BMI 28.5
--- NOTE | 2023-11-09 16:40 | EDS_ITS ---
HPI History of Present Illness Chief Complaint: Alt LOC [facility] Medical History Former smoker On home oxygen therapy Bleeding tendency Ulcer High cholesterol History of stress test HTN (hypertension) Tobacco abuse History of pulmonary embolus (PE) (04/30/21) Essential hypertension Type 2 diabetes mellitus DVT (deep venous thrombosis) (05/01/21) Rhinovirus Acute respiratory failure with hypoxia Physical debility FTT (failure to thrive) in adult COVID-19 in immunocompromised patient Nicotine dependence, cigarettes, uncomplicated Diabetes Arthritis Cancer COPD (chronic obstructive pulmonary disease) History of basal cell carcinoma Atherosclerosis of coronary artery of [place] heart without angina pectoris Pneumonia Non-Hodgkin lymphoma History of pilonidal cyst Allergic rhinitis 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 complications Gastritis Colon polyp Obesity Asthma Chronic bronchitis Positive colorectal cancer screening using Cologuard test RA (rheumatoid arthritis) Home Medications ?Medication ?Instructions ?Recorded ?Last Taken ?Type nitroglycerin 0.4 mg sublingual 0.4 mg sublingual Q5M PRN chest 09/25/20 Unknown Rx tablet (Nitrostat) pain #30 tabs finasteride 5 mg tablet 5 mg PO DAILY prostate 08/14/22 03/16/23 History tamsulosin 0.4 mg capsule 0.4 mg PO QHS prostate 08/14/22 03/15/23 History multivitamin 1 tab PO DAILY vitamin 09/13/22 03/16/23 History menthol 0.44 %-zinc oxide 20.6 % 1 applic topical 4-6XD PRN skin 03/07/23 Unknown Rx topical ointment (Calmoseptine) irritation #113 grams ferrous sulfate 325 mg (65 mg 325 mg PO LUNCH 30 days #30 tabs 03/21/23 Unknown Rx iron) tablet (FeroSul) needle (disp) 32 gauge 32 gauge x #100 ea 03/21/23 Unknown Rx 5/16 insulin aspart U-100 100 unit/mL See Protocol subcut ACHS #15 mL 03/22/23 Unknown Rx (3 mL) subcutaneous pen furosemide 40 mg tablet (Lasix) 20 mg (1/2 x 40 mg) PO DAILY 03/27/23 Unknown Rx diuretic #30 tabs guaifenesin 100 mg/5 mL oral liquid 600 mg PO Q4H PRN cough 05/07/23 Unknown History prednisone 2.5 mg tablet 2.5 mg PO DAILY 05/28/23 Unknown History carvedilol 3.125 mg tablet 3.125 mg PO BID #60 tabs 06/05/23 Unknown Rx empagliflozin 10 mg tablet 10 mg PO DAILY #30 tabs 06/05/23 Unknown Rx (Jardiance) atorvastatin 40 mg tablet 20 mg (1/2 x 40 mg) PO QHS 09/18/23 Unknown Rx cholesterol #90 tabs budesonide 1 mg/2 mL suspension 1 mg (2 mL) inhalation Q12H #120 mL 09/19/23 Unknown Rx for nebulization ipratropium 0.5 mg-albuterol 3 mg 3 ml inhalation Q4H PRN PRN SOB 09/19/23 Unkno wn Rx (2.5 mg base)/3 mL nebulization &/OR WHEEZING #270 mL soln escitalopram oxalate 10 mg tablet 10 mg PO DAILY mood 90 days #90 10/29/23 Unknown Rx tabs mirtazapine 15 mg tablet (Remeron) 7.5 mg (1/2 x 15 mg) PO QHS sleep 10/29/23 Unknown Rx #90 tabs pantoprazole 40 mg tablet,delayed 40 mg PO BID reflux 3 months #180 10/29/23 Unknown Rx release tabs Allergy/AdvReac Type Severity Reaction Status Date / Time levofloxacin (From Levaquin) AdvReac Intermediate diarrhea, Verified 11/09/23 16:41 dizziness, GI upset, weakness Family History Father Arthritis Bleeding disorder Hypertension Kidney disease Cancer Skin Anemia blood clots Emphysema lung Mother Colon cancer Cancer Lung Cancer Diabetes Brother Thyroid disorder Surgical History History of embolic filter insertion History of heart artery stent Status post cardiac surgery H/O cardiac catheterization Presence of IVC filter (04/2021) History of coronary artery stent placement (10/22/13) History of thymectomy Hx of lymph node excision History of excision of pilonidal cyst Social History household members: spouse Smoking Status: Former smoker Tobacco: How many years used: 55 second hand exposure: Yes alcohol intake: current alcohol intake frequency: holidays/special occasions only substance use type: does not use caffeine: Yes Type: coffee Number of servings: 3 what type of physical activity do you participate in: none frequency: does not exercise seatbelt use: always EXAM Physical Exam Const Vital Signs: 11/09/23 16:36 11/09/23 16:41 11/09/23 16:55 Temperature 100.4 F H 100.4 F H Temperature Source Oral Oral Pulse Rate 86 86 Respiratory Rate 26 H 26 H Respiratory Pattern Tachypnea Blood Pressure 150/72 H 150/72 H Blood Pressure Mean 98 98 Pulse Ox 79 79 Oxygen Delivery Method Nasal Cannula Nasal Cannula Oxygen Flow Rate (L/min) 4 4 Fraction of Inspired Oxygen (FIO2) 11/09/23 16:57 11/09/23 17:01 11/09/23 17:33 Temperature Temperature Source Pulse Rate 88 95 Respiratory Rate 32 H 22 H Respiratory Pattern Normal Blood Pressure 110/72 Blood Pressure Mean 84 Pulse Ox 99 96 96 Oxygen Delivery Method Bi-pap Bi-pap Oxygen Flow Rate (L/min) Fraction of Inspired Oxygen (FIO2) 40 11/09/23 17:41 11/09/23 18:00 11/09/23 18:49 Temperature 98 F Temperature Source Axillary Pulse Rate 96 89 85 Respiratory Rate 22 H 18 23 H Respiratory Pattern Blood Pressure 110/72 109/63 122/58 H Blood Pressure Mean 84 78 79 Pulse Ox 96 96 95 Oxygen Delivery Method Bi-pap Bi-pap Bi-pap Oxygen Flow Rate (L/min) Fraction of Inspired Oxygen (FIO2) 11/09/23 18:54 11/09/23 19:00 Temperature Temperature Source Pulse Rate 80 87 Respiratory Rate 28 H 22 H Respiratory Pattern Blood Pressure 122/58 H Blood Pressure Mean 79 Pulse Ox 95 95 Oxygen Delivery Method Bi-pap Oxygen Flow Rate (L/min) Fraction of Inspired Oxygen (FIO2) 35 MDM MDM MDM Narrative Medical decision making narrative: HISTORY OF PRESENT ILLNESS: 73-year-old male presents with concern for lethargy, per triage note patient is oriented but not as responsive as he normally is. The patient states he has been short of breath, having a cough. Feeling diffusely weak. Denies vomiting. Denies chest pain. Denies palpitations. Denies abdominal pain. Denies diarrhea or trouble urinating. Denies any falls or other trauma. REVIEW OF SYSTEMS: Pertinent positives: Cough Pertinent negatives: As per HPI PHYSICAL EXAM: Nursing triage notes reviewed, Vital signs reviewed Constitutional: please see [facility] HENT: MMM Eyes: Pupils equal round and reactive to light, Extraocular muscles intact Neck: No stridor, no JVD, full neck ROM Lungs: Clear to auscultation, No wheezing or rales. No increased work of breathing, no conversational dyspnea, no accessory muscle use, no nasal flaring. No respiratory distress noted Heart: Regular rate and rhythm, No murmurs, No rubs and No gallops, 2+ distal pulses (radial, femoral, posterior tibial) in all extremities Abdomen: Soft, there is no tenderness, rigidity, rebound or guarding, no obvious peritoneal signs, no palpable pulsatile abdominal masses, no auscultated abdominal bruit : No CVAT Extremities: No edema Neuro: The patient was somnolent however easily arousable to minor stimuli, when aroused he was alert and oriented x 3, he had no focal neurologic deficits, he moves all 4 extremities had sensation all 4 extremities. No obvious cranial nerve deficits. 2+ reflexes bilateral patellar Skin: No rash or lesions noted MEDICAL DECISION MAKING: Chief Complaint: Lethargy, cough, fever External records reviewed: Imaging reviewed: Reviewed prior CT scan of head shows no acute intracranial findings Factors affecting care: History of heart failure, COPD, GI bleed, type 2 diabetes symptoms Social determinants of health: Elderly, history of tobacco abuse History obtained from others: Family, EMS Consults: Internal medicine Dr. Back [facility] Narrative: The patient was initially febrile with a temperature 100.4, he was hypoxic to 79% and was started on nonrebreather by EMS. The patient had slight increased work of breathing and coarse/wet breath sounds. Start the patient critically on BiPAP given hypoxia. I considered the following differential diagnosis: COPD exacerbation, Pneumonia, COVID, RSV, flu, ACS, arrhythmia, anemia, PE, I obtained a broad lab and imaging workup to further elucidate the etiology of patient complaint. I obtain lactate and blood cultures given initial fever, tachypnea and hypoxia and signs of sepsis. ALL IMAGES (IF OBTAINED) HAVE BEEN PERSONALLY REVIEWED AND INTERPRETED BY MYSELF. EKG with normal sinus rhythm, normal axis, normal intervals, no STEMI, no stigmata of VTE, no evidence of right heart strain ABG without significant respiratory acidosis, no evidence of CO2 retention. Noted hypoxia with pO2 of 69.6 High-sensitivity troponin is negative, no evidence of myocardial ischemia Lactate is wnl indicating no end-organ hypoperfusion and/or hypoxia. BMP with mild hypokalemia, no other significant lecture maladies, no signs of metabolic acidosis or endorgan hypoperfusion with normal bicarb and anion gap, no LUIS BNP slightly elevated consistent with volume overload I have personally reviewed the patient's chest x-ray. Chest x-ray is unremarkable for pulmonary edema, pneumothorax, pneumonia or focal cardiopulmonary abnormality. CT scan of the head was negative for ICH COVID was positive this is likely etiology the patient's complaint. Given signs of acute hypoxic respiratory failure, need for noninvasive insulation patient will need admission to the ICU. Discussed with hospitalist who agreed. Dr. Back requested I give the patient IV Pepcid, IV doxycycline as well as IV Decadron. These medicines were ordered. The patient and/or family, caregivers express understanding. The patient and/or family, caregivers agrees with the plan. Shared decision making: I will have a discussion with the patient and or visitors regarding risk/benefits of further testing or admission. They will be made aware of of the risk/benefits inherent in this decision they will be given the opportunity to voice understanding. Total critical care time today provided was at least 60 minutes. This excludes separately billable procedures. Critical care time (if documented) is secondary to the patient having high probability of clinically significant/life threatening deterioration in the patient's condition which required my urgent intervention. Impression: 1. Somnolence 2. Altered mental status 3. Acute hypoxic respiratory failure 4. COVID-19 Dispo: Admit to ICU This note was generated with [employer] dictation software. It may contain incorrect words, spelling, and punctuation that were not noted in review of the chart prior to signing. Lab Data Labs: Laboratory Results - last 24 hr 11/09/23 11/09/23 11/09/23 17:09 17:09 17:45 WBC Cancelled 10.8 Corrected WBC Cancelled RBC Cancelled 3.38 L Hgb Cancelled 10.9 L Hct Cancelled 33.4 L MCV Cancelled 98.8 H MCH Cancelled 32.2 H MCHC Cancelled 32.6 RDW Std Deviation Cancelled 57.8 H RDW Coeff of Rafael Cancelled 16.1 H Plt Count Cancelled 247 MPV Cancelled 10.7 Immature Gran % (Auto) Cancelled 4.100 H Neut % (Auto) Cancelled 71.8 H Lymph % (Auto) Cancelled 11.8 L Elbert % (Auto) Cancelled 10.9 H Eos % (Auto) Cancelled 0.8 Baso % (Auto) Cancelled 0.6 Absolute Neuts (auto) Cancelled 7.8 H Absolute Lymphs (auto) Cancelled 1.28 Total Counted Cancelled Neutrophils % (Manual) Cancelled Band Neutrophils % Cancelled Lymphocytes % (Manual) Cancelled Monocytes % (Manual) Cancelled Eosinophils % (Manual) Cancelled Basophils % (Manual) Cancelled Metamyelocytes % Cancelled Myelocytes % Cancelled Promyelocytes % Cancelled Blast Cells % Cancelled Plasma Cell % (Manual) Cancelled Other Cells % Cancelled Nucleated RBC % Cancelled 0.6 Nucleated RBCs/100 WBC Cancelled Differential Comment Cancelled Diff Path Review Cancelled Hypersegmented Neuts Cancelled Atypical Lymphocytes Cancelled Reactive Lymphocytes Cancelled Smudge Cells Cancelled Toxic Granulation Cancelled Toxic Vacuolation Cancelled Dohle Bodies Cancelled Matt Rods Cancelled Platelet Estimate Cancelled Plt Morphology Comment Cancelled RBC Morphology Cancelled Cancelled Polychromasia Cancelled Hypochromasia Cancelled Basophilic Stippling Cancelled Anisocytosis Cancelled Microcytosis Cancelled Macrocytosis Cancelled Spherocytes Cancelled Sickle Cells Cancelled Target Cells Cancelled Tear Drop Cells Cancelled Ovalocytes Cancelled Stomatocytes Cancelled Lockhart-Goldston Bodies Cancelled [place] Cells Cancelled Bite Cells Cancelled Crenated Cell Cancelled Acanthocytes (Spur) Cancelled Rouleaux Cancelled Schistocytes Cancelled Sodium 143 Potassium 3.4 L Chloride 115 H Carbon Dioxide 22.0 Anion Gap 6 BUN 27 H Creatinine 1.21 Estim Creat Clear Calc 63.47 Est GFR (MDRD) Af Amer 75 Est GFR (MDRD) Non-Af 62 BUN/Creatinine Ratio 22.3 H Glucose 212 H Lactic Acid 1.6 Calcium 7.5 L Troponin I High Sens 39 B-Natriuretic Peptide Cancelled 201.0 H Urine Color Urine Clarity Urine pH Ur Specific Liz[place] Urine Protein Urine Glucose (UA) Urine Ketones Urine Occult Blood Urine Nitrite Urine Bilirubin Urine Urobilinogen Ur Leukocyte Esterase 11/09/23 19:12 WBC Corrected WBC RBC Hgb Hct MCV MCH MCHC RDW Std Deviation RDW Coeff of Rafael Plt Count MPV Immature Gran % (Auto) Neut % (Auto) Lymph % (Auto) Elbert % (Auto) Eos % (Auto) Baso % (Auto) Absolute Neuts (auto) Absolute Lymphs (auto) Total Counted Neutrophils % (Manual) Band Neutrophils % Lymphocytes % (Manual) Monocytes % (Manual) Eosinophils % (Manual) Basophils % (Manual) Metamyelocytes % Myelocytes % Promyelocytes % Blast Cells % Plasma Cell % (Manual) Other Cells % Nucleated RBC % Nucleated RBCs/100 WBC Differential Comment Diff Path Review Hypersegmented Neuts Atypical Lymphocytes Reactive Lymphocytes Smudge Cells Toxic Granulation Toxic Vacuolation Dohle Bodies Matt Rods Platelet Estimate Plt Morphology Comment RBC Morphology Polychromasia Hypochromasia Basophilic Stippling Anisocytosis Microcytosis Macrocytosis Spherocytes Sickle Cells Target Cells Tear Drop Cells Ovalocytes Stomatocytes Lockhart-Goldston Bodies [place] Cells Bite Cells Crenated Cell Acanthocytes (Spur) Rouleaux Schistocytes Sodium Potassium Chloride Carbon Dioxide Anion Gap BUN Creatinine Estim Creat Clear Calc Est GFR (MDRD) Af Amer Est GFR (MDRD) Non-Af BUN/Creatinine Ratio Glucose Lactic Acid Calcium Troponin I High Sens B-Natriuretic Peptide Urine Color Yellow Urine Clarity Clear Urine pH 6.0 Ur Specific [place] 1.015 Urine Protein 30 H Urine Glucose (UA) 1000 H Urine Ketones Negative Urine Occult Blood 25 H Urine Nitrite Negative Urine Bilirubin Negative Urine Urobilinogen Normal Ur Leukocyte Esterase 500 H ABG Data ABG results: ABG 11/09/23 17:06 Specimen Type ART Sample Site L Radial pH 7.41 Bicarbonate Actual 29.0 H Total CO2 30 Base Excess 5 H O2 Saturation 94 L O2 % 15.0 ABG pCO2 45.4 H ABG pO2 70 L Thompson Test Positive O2 Delivery Device NRB Vent Mode Not entered Radiography Diagnostic Testing: Clinical Impression(s) from Imaging Studies Brain CT 11/09/23 17:46 IMPRESSION: There are no acute findings. Chronic involutional changes of the brain. Electronically Signed: Moo Yanes MD at 19:06 EDT , Chest X-Ray 11/09/23 17:55 IMPRESSION: There are no acute findings. Electronically Signed: Moo Yanes MD at 18:28 EDT , Discharge Plan Triage Chief Complaint: Alt LOC ED Provider: David Verma Dx/Rx/DC Orders Prescriptions: No Action nitroglycerin [Nitrostat] 0.4 mg tablet, sublingual 0.4 mg SUBLINGUAL Q5M PRN (Reason: chest pain) Qty: 30 0RF Rx Instructions: until response; do not exceed 3 doses per episode multivitamin Tablet 1 tab PO DAILY tamsulosin 0.4 mg capsule 0.4 mg PO QHS finasteride 5 mg tablet 5 mg PO DAILY ipratropium-albuterol 0.5 mg-3 mg(2.5 mg base)/3 mL solution for nebulization 3 ml inhalation Q4H PRN PRN (Reason: SOB &/OR WHEEZING) Qty: 270 11RF budesonide 1 mg/2 mL suspension for nebulization 1 mg inhalation Q12H Qty: 120 11RF furosemide [Lasix] 40 mg tablet 20 mg PO DAILY Qty: 30 0RF guaifenesin 100 mg/5 mL liquid 600 mg PO Q4H PRN (Reason: cough) prednisone 2.5 mg tablet 2.5 mg PO DAILY ferrous sulfate [FeroSul] 325 mg (65 mg iron) Tablet 325 mg PO LUNCH 30 Days Qty: 30 2RF (DME) needle (disp) 32 gauge 32 gauge x 5/16 needle See Rx Instructions .Route Qty: 100 1RF Rx Instructions: As directed insulin aspart U-100 100 unit/mL (3 mL) insulin pen See Protocol subcut ACHS Qty: 15 3RF Protocol: 5. Sliding Scale Insulin High Dosing Condition: 150-209 mg/dl = 3 units Condition: 210-259 mg/dl = 6 units Condition: 260-324 mg/dl = 9 units Condition: 325-374 mg/dl = 12 units Condition: 375-409 mg/dl = 14 units Condition: 410-449 mg/dl = 16 units Condition: Greater than 449 call physician Protocol Text: - Use for Total Daily Dose of Insulin 81-120 units - Very insulin resistant or septic patients HIGH DOSING ALGORITHM menthol-zinc oxide [Calmoseptine] 0.44-20.6 % ointment 1 applic topical 4-6XD PRN (Reason: skin irritation) Qty: 113 2RF carvedilol 3.125 mg tablet 3.125 mg PO BID Qty: 60 11RF Rx Instructions: must administer with a meal/food Jardiance 10 mg tablet 10 mg PO DAILY Qty: 30 11RF atorvastatin 40 mg tablet 20 mg PO QHS Qty: 90 3RF escitalopram oxalate 10 mg tablet 10 mg PO DAILY 90 Days Qty: 90 3RF mirtazapine [Remeron] 15 mg tablet 7.5 mg PO QHS Qty: 90 3RF pantoprazole 40 mg tablet,delayed release (DR/EC) 40 mg PO BID 90 Days Qty: 180 1RF Primary Care Provider: Donna Will Referrals: Donna Will MD [Primary Care Provider] - Print Language: Lao
[2023-11-09 17:10] LABS: Allen Test Positive; Base Excess 5 mmol/L (-2 to +2); Blood Gas Specimen Type ART; Mode Not entered; O2 Delivery Device NRB; PO2 70 mmHG (75-100); SITE L Radial; SO2 94 % (95-99); Total Carbon Dioxide 30 mmol/L; pCO2 45.4 mmHg (35-45); pH 7.41 (7.35-7.45)
[2023-11-09] MEDS: Ketorolac 15 MG/ML Vial IV (17:20)
[2023-11-09 17:45] LABS: Lactic Acid 1.6 mmol/L (0.4-1.9)
[2023-11-09 17:46] LABS: Anion Gap 6 (5-15); BUN 27 mg/dL (7-18); BUN/Creat Ratio 22.3 RATIO (10-20); Calcium,Total 7.5 mg/dL (8.5-10.1); Chloride 115 mmol/L (98-107); Creatinine, Serum 1.21 mg/dL (0.70-1.30); EST Glomerular Filtration Rate 62 mL/min (>60); Est Glom Filt Rate - Afr Amer 75 mL/min (>60); Estimated Creatinine Clearance 63.47 ml/min; Glucose 212 mg/dL (74-106); Potassium 3.4 mmol/L (3.5-5.1); Sodium Level 143 mmol/L (136-145); Troponin-I HS 39 pg/mL (3.0-78.0)
--- NOTE | 2023-11-09 17:46 | CT_ITS ---
STUDY: CT BRAIN WITHOUT CONTRAST REASON FOR EXAM: Male, 73 years old. AMS Individualized dose optimization techniques were used for this CT. TECHNIQUE: Transaxial CT imaging of the brain was performed without administration of intravenous contrast material. COMPARISON: 03/16/2023 FINDINGS: There are calcifications around the carotid artery. These are noted in the cavernous carotid arteries. Normal calvarium. Normal soft tissues. There is mild cerebral atrophy with widening of the extra-axial spaces and ventricular dilatation. There are areas of decreased attenuation within the white matter tracts of the supratentorial brain, consistent with microvascular disease changes. Normal basal ganglia and thalami. Normal brainstem. There is mild cerebellar atrophy. There is no intracranial hemorrhage. There are no findings of an acute ischemic infarction. Normal visualized paranasal sinuses. ASPECTS Score for Acute Strokes: 12/03 CT/Brain/Head without Contrast IMPRESSION: There are no acute findings. Chronic involutional changes of the brain. Electronically Signed: Moo Yanes MD at 19:06 EDT ,
--- NOTE | 2023-11-09 17:55 | RAD_ITS ---
STUDY: XR Chest 1 View 11/09/2023 5:54 PM REASON FOR EXAM: Male, 73 years old. SOB COMPARISON: 03/18/2023 TECHNIQUE: XR Chest 1 View FINDINGS: There is no demonstrated pleural abnormality. There are multiple median sternotomy wires. Normal heart size. Normal mediastinum. Normal sho. Prominent appearing increased interstitial lung markings. Normal visualized pulmonary arteries. There is atherosclerotic calcification of the aortic arch with tortuosity. There are diffuse degenerative changes of the visualized thoracic spine. There is degenerative osteoarthritis of the bilateral shoulders. There are no acute findings of the upper abdomen. RAD/Chest 1 View (Portable) IMPRESSION: There are no acute findings. Electronically Signed: Moo Yanes MD at 18:28 EDT ,
[2023-11-09 17:57] LABS: Absolute Lymphocyte Count 1.28 X10^3/uL (0.83-4.51); Absolute Neutrophil Count 7.8 X10^3/uL (2.0-7.7); Basophil# 0.06 X10^3/uL; Basophil% 0.6 % (0-1); Eosinophil# 0.09 X10^3/uL; Eosinophils% 0.8 % (0-5); Hematocrit 33.4 % (40-54); Hemoglobin 10.9 g/dL (13.0-16.5); Lymphocyte # 1.28 X10^3/ul (0.83-4.51); Lymphocyte % 11.8 % (19-41); Mean Corp Hgb Conc 32.6 g/dL (32-36); Mean Corpuscular Hgb 32.2 pg (27.0-32.0); Mean Corpuscular Volume 98.8 fL (80-94); Mean Platelet Vol. 10.7 fl (6.2-12.0); Monocyte# 1.18 X10^3/uL; Monocyte% 10.9 % (0-10); NRBC Flagged by Analyzer 0.6 % (0-5); Neutrophil # 7.79 X10^3/uL (2.7-7.7); Neutrophil % 71.8 % (47-70); Platelet Count 247 K/mm3 (150-450); RBC Distribution Width CV 16.1 % (11.6-14.6); RBC Distribution Width SD 57.8 fl (35.1-43.9); Red Blood Count 3.38 M/mm3 (4.6-6.2); White Blood Count 10.8 K/mm3 (4.4-11.0)
--- NOTE | 2023-11-09 18:55 | CPS ---
o2 decreased to 35%-mask readjusted and changed to large -pt christiane well
[2023-11-09 19:22] LABS: Bacteria 0 SEEN /hpf (None Seen); Mucous, Urine 0 SEEN /hpf (<or=2+); Red Blood Cells-Urine 0 SEEN /hpf (0-5); Squamous Epithelial Cells - UA 0 SEEN /hpf (0-5)
[2023-11-09 19:25] LABS: Color, Urine Yellow (Yellow); Glucose, Dipstick 1000 mg/dl (Normal); Ketone-Dipstick Negative (Negative); Leukocyte Esterase-Dipstick 500 /ul (Negative); Nitrite-Dipstick Negative (Negative); Occult Blood-Urine 25 /ul (Negative); Protein-Dipstick 30 mg/dl (Negative); Specific Gravity, Urine 1.015 (1.002-1.030); Urine Bilirubin Dipstick Negative (Negative); Urine Clarity Clear (Clear); Urine Urobilinogen Normal (Normal)
--- NOTE | 2023-11-09 19:38 | PCM.HP.STD ---
[facility] - General General Date of Admission: 11/09/23 Date of Service: 11/09/23 Chief Complaint: Fever, SOB and AMS. [facility] Narrative SAL ALONZO, is a 73 M with a past medical history of essential hypertension, hyperlipidemia, overweight; with BMI of 29.7 this admission, DM-2; of unknown control, CAD; s/p numerous stents, history of tobacco abuse; with subsequent asthma/COPD, chronic hypoxic respiratory failure on 4L NC continuously, history of LLE DVT/PE (2021), history of GI bleed due to gastritis and PUD (2021), history of IVC filter, history of JO ANN, , history of Hodgkin's Lymphoma (1999), history of basal cell carcinoma, history of pilonidal cyst; s/p excision (1967), history of COVID-19, RA, OA and chronic debility; with history of adult failure to thrive who presents to [facility] ER complaining of fever, SOB and altered mental status. Mr. Alonzo is not a reliable historian at this time as he is encephalopathic on BiPAP so information was gathered from chart, medical staff and computer. According to the records the patient complained of SOB and feeling diffusely weak with progressively worsening lethargy. He then became increasingly confused so he was brought in for further evaluation and treatment. Shortly after EMS arrived he was noted to have a fever of 100.4 degrees Fahrenheit with severe hypoxia of 79% and he was started on a NRB before being converted to BIPAP shortly after arrival. In the ER his COVID-19 PCR assay returned positive complicated by clinical evidence of AE COPD with [id number] Hypoxic Respiratory Failure requiring BIPAP compounded by laboratory evidence of Hypokalemia of 3.4 mmol/L present on admission with UA positive for Acute Cystitis; without hematuria all resulting in Acute Metabolic Encephalopathy in the setting of preexisting chronic debility with a history of adult [id number] and he was then admitted to the ICU for ongoing care for a stay that is expected to extend beyond 2 midnights. [facility] Medical History (Updated 11/09/23 @ 23:[address] Jordan Mendoza, ) FTT (failure to thrive) in adult Former smoker On home oxygen therapy Bleeding tendency Ulcer High cholesterol History of stress test HTN (hypertension) Tobacco abuse History of pulmonary embolus (PE) (04/30/21) Essential hypertension Type 2 diabetes mellitus DVT (deep venous thrombosis) (05/01/21) Rhinovirus Acute respiratory failure with hypoxia Physical debility COVID-19 in immunocompromised patient Nicotine dependence, cigarettes, uncomplicated Diabetes Arthritis Cancer COPD (chronic obstructive pulmonary disease) History of basal cell carcinoma Atherosclerosis of coronary artery of [place] heart without angina pectoris Pneumonia Non-Hodgkin lymphoma History of pilonidal cyst Allergic rhinitis 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 complications Gastritis Colon polyp Obesity Asthma Chronic bronchitis Positive colorectal cancer screening using Cologuard test RA (rheumatoid arthritis) Home Medications ?Medication ?Instructions ?Recorded ?Last Taken ?Type nitroglycerin 0.4 mg sublingual 0.4 mg sublingual Q5M PRN chest 09/25/20 Unknown Rx tablet (Nitrostat) pain #30 tabs finasteride 5 mg tablet 5 mg PO DAILY prostate 08/14/22 03/16/23 History tamsulosin 0.4 mg capsule 0.4 mg PO QHS prostate 08/14/22 03/15/23 History multivitamin 1 tab PO DAILY vitamin 09/13/22 03/16/23 History menthol 0.44 %-zinc oxide 20.6 % 1 applic topical 4-6XD PRN skin 03/07/23 Unknown Rx topical ointment (Calmoseptine) irritation #113 grams ferrous sulfate 325 mg (65 mg 325 mg PO LUNCH 30 days #30 tabs 03/21/23 Unknown Rx iron) tablet (FeroSul) needle (disp) 32 gauge 32 gauge x #100 ea 03/21/23 Unknown Rx 5/16 insulin aspart U-100 100 unit/mL See Protocol subcut ACHS #15 mL 03/22/23 Unknown Rx (3 mL) subcutaneous pen furosemide 40 mg tablet (Lasix) 20 mg (1/2 x 40 mg) PO DAILY 03/27/23 Unknown Rx diuretic #30 tabs guaifenesin 100 mg/5 mL oral liquid 600 mg PO Q4H PRN cough 05/07/23 Unknown History prednisone 2.5 mg tablet 5 mg PO DAILY copd 05/28/23 Unknown History carvedilol 3.125 mg tablet 3.125 mg PO BID #60 tabs 06/05/23 Unknown Rx empagliflozin 10 mg tablet 10 mg PO DAILY #30 tabs 06/05/23 Unknown Rx (Jardiance) atorvastatin 40 mg tablet 20 mg (1/2 x 40 mg) PO QHS 09/18/23 Unknown Rx cholesterol #90 tabs budesonide 1 mg/2 mL suspension 1 mg (2 mL) inhalation Q12H #120 mL 09/19/23 Unknown Rx for nebulization ipratropium 0.5 mg-albuterol 3 mg 3 ml inhalation Q4H PRN PRN SOB 09/19/23 Unknown Rx (2.5 mg base)/3 mL nebulization &/OR WHEEZING #270 mL soln escitalopram oxalate 10 mg tablet 10 mg PO DAILY mood 90 days #90 10/29/23 Unknown Rx tabs mirtazapine 15 mg tablet (Remeron) 7.5 mg (1/2 x 15 mg) PO QHS sleep 10/29/23 Unknown Rx #90 tabs pantoprazole 40 mg tablet,delayed 40 mg PO BID reflux 3 months #180 10/29/23 Unknown Rx release tabs Allergy/AdvReac Type Severity Reaction Status Date / Time levofloxacin (From [employer]) AdvReac Intermediate diarrhea, Verified 11/09/23 16:41 dizziness, GI upset, weakness Family History Father Arthritis Bleeding disorder Hypertension Kidney disease Cancer Skin Anemia blood clots Emphysema lung Mother Colon cancer Cancer Lung Cancer Diabetes Brother Thyroid disorder Surgical History History of embolic filter insertion History of heart artery stent Status post cardiac surgery H/O cardiac catheterization Presence of IVC filter (04/2021) History of coronary artery stent placement (10/22/13) History of thymectomy Hx of lymph node excision History of excision of pilonidal cyst Social History household members: spouse Smoking Status: Former smoker Tobacco: How many years used: 55 second hand exposure: Yes alcohol intake: current alcohol intake frequency: holidays/special occasions only substance use type: does not use caffeine: Yes Type: coffee Number of servings: 3 what type of physical activity do you participate in: none frequency: does not exercise seatbelt use: always ROS ROS Narrative Full ROS was not possible due to patient being on BiPAP with acute severe illness and associated metabolic encephalopathy. Vital Signs Vital Signs Vital Signs: 11/09/23 16:36 11/09/23 16:41 11/09/23 16:55 Temperature 100.4 F H 100.4 F H Temperature Source Oral Oral Pulse Rate 86 86 Respiratory Rate 26 H 26 H Respiratory Pattern Tachypnea Blood Pressure 150/72 H 150/72 H Blood Pressure Mean 98 98 Pulse Ox 79 79 Oxygen Delivery Method Nasal Cannula Nasal Cannula Oxygen Flow Rate (L/min) 4 4 Fraction of Inspired Oxygen (FIO2) 11/09/23 16:57 11/09/23 17:01 11/09/23 17:33 Temperature Temperature Source Pulse Rate 88 95 Respiratory Rate 32 H 22 H Respiratory Pattern Normal Blood Pressure 110/72 Blood Pressure Mean 84 Pulse Ox 99 96 96 Oxygen Delivery Method Bi-pap Bi-pap Oxygen Flow Rate (L/min) Fraction of Inspired Oxygen (FIO2) 40 11/09/23 17:41 11/09/23 18:00 11/09/23 18:49 Temperature 98 F Temperature Source Axillary Pulse Rate 96 89 85 Respiratory Rate 22 H 18 23 H Respiratory Pattern Blood Pressure 110/72 109/63 122/58 H Blood Pressure Mean 84 78 79 Pulse Ox 96 96 95 Oxygen Delivery Method Bi-pap Bi-pap Bi-pap Oxygen Flow Rate (L/min) Fraction of Inspired Oxygen (FIO2) 11/09/23 18:54 11/09/23 19:00 Temperature Temperature Source Pulse Rate 80 87 Respiratory Rate 28 H 22 H Respiratory Pattern Blood Pressure 122/58 H Blood Pressure Mean 79 Pulse Ox 95 95 Oxygen Delivery Method Bi-pap Oxygen Flow Rate (L/min) Fraction of Inspired Oxygen (FIO2) 35 Weight Weight: 212 lb 11.937 oz Body Mass Index (BMI) 29.7 Physical Exam Const average body habitus Constitutional Narrative: Patient is lethargic but arousable on BiPAP and is chronically ill in appearance. Orientation / Consciousness: confused and lethargic HEENT normocephalic, head/scalp atraumatic, hearing grossly normal bilaterally and moist oral mucous membranes Eyes PERRL and EOMs intact bilaterally Neck no lymphadenopathy and supple Resp Resp Narrative: Diminished breath sounds throughout with scattered rhonci. Auscultation: rhonchi Cardio regular rate and regular rhythm GI normal to inspection, nondistended, normoactive bowel sounds, soft to palpation, non-tender and non-distended Extremity normal to inspection, full ROM and no clubbing, cyanosis or edema Skin Skin Narrative: Patient has no evidence of rash, abscess or jaundice. Neuro CN's II-XII intact bilaterally and moves all extremities Neuro Narrative: Patient is lethargic but arousable and able to move all four extremities. Speech: speech normal Psych Psych Narrative: Patient is lethargic but arousable. Results Medical Records Data Attestation: I reviewed the patient's medical records Lab / Micro Data Attestation: I reviewed the patient's lab results. 11/09/23 17:45 11/09/23 17:09 Labs: Laboratory Results - last 24 hr 11/09/23 17:09: WBC Cancelled, Corrected WBC Cancelled, RBC Cancelled, Hgb Cancelled, Hct Cancelled, MCV Cancelled, MCH Cancelled, MCHC Cancelled, RDW Std Deviation Cancelled, RDW Coeff of Rafael Cancelled, Plt Count Cancelled, MPV Cancelled, Immature Gran % (Auto) Cancelled, Neut % (Auto) Cancelled, Lymph % (Auto) Cancelled, Saunders % (Auto) Cancelled, Eos % (Auto) Cancelled, Baso % (Auto) Cancelled, Absolute Neuts (auto) Cancelled, Absolute Lymphs (auto) Cancelled, Total Counted Cancelled, Neutrophils % (Manual) Cancelled, Band Neutrophils % Cancelled, Lymphocytes % (Manual) Cancelled, Monocytes % (Manual) Cancelled, Eosinophils % (Manual) Cancelled, Basophils % (Manual) Cancelled, Metamyelocytes % Cancelled, Myelocytes % Cancelled, Promyelocytes % Cancelled, Blast Cells % Cancelled, Plasma Cell % (Manual) Cancelled, Other Cells % Cancelled, Nucleated RBC % Cancelled, Nucleated RBCs/100 WBC Cancelled, Differential Comment Cancelled, Diff Path Review Cancelled, Hypersegmented Neuts Cancelled, Atypical Lymphocytes Cancelled, Reactive Lymphocytes Cancelled, Smudge Cells Cancelled, Toxic Granulation Cancelled, Toxic Vacuolation Cancelled, Dohle Bodies Cancelled, Matt Rods Cancelled, Platelet Estimate Cancelled, Plt Morphology Comment Cancelled, RBC Morphology Cancelled 11/09/23 17:09: RBC Morphology Cancelled, Polychromasia Cancelled, Hypochromasia Cancelled, Basophilic Stippling Cancelled, Anisocytosis Cancelled, Microcytosis Cancelled, Macrocytosis Cancelled, Spherocytes Cancelled, Sickle Cells Cancelled, Target Cells Cancelled, Tear Drop Cells Cancelled, Ovalocytes Cancelled, Stomatocytes Cancelled, Lockhart-Suffolk Bodies Cancelled, Santi Cells Cancelled, Bite Cells Cancelled, Crenated Cell Cancelled, Acanthocytes (Spur) Cancelled, Rouleaux Cancelled, Schistocytes Cancelled, Sodium 143, Potassium 3.4 L, Chloride 115 H, Carbon Dioxide 22.0, Anion Gap 6, BUN 27 H, Creatinine 1.21, Estim Creat Clear Calc 63.47, Est GFR (MDRD) Af Amer 75, Est GFR (MDRD) Non-Af 62, BUN/Creatinine Ratio 22.3 H, Glucose 212 H, Lactic Acid 1.6, Calcium 7.5 L, Troponin I High Sens 39, B-Natriuretic Peptide Cancelled 11/09/23 17:45: WBC 10.8, RBC 3.38 L, Hgb 10.9 L, Hct 33.4 L, MCV 98.8 H, MCH 32.2 H, MCHC 32.6, RDW Std Deviation 57.8 H, RDW Coeff of Rafael 16.1 H, Plt Count 247, MPV 10.7, Immature Gran % (Auto) 4.100 H, Neut % (Auto) 71.8 H, Lymph % (Auto) 11.8 L, Saunders % (Auto) 10.9 H, Eos % (Auto) 0.8, Baso % (Auto) 0.6, Absolute Neuts (auto) 7.8 H, Absolute Lymphs (auto) 1.28, Nucleated RBC % 0.6, B-Natriuretic Peptide 201.0 H 11/09/23 19:12: Urine Color Yellow, Urine Clarity Clear, Urine pH 6.0, Ur Specific Parrish 1.015, Urine Protein 30 H, Urine Glucose (UA) 1000 H, Urine Ketones Negative, Urine Occult Blood 25 H, Urine Nitrite Negative, Urine Bilirubin Negative, Urine Urobilinogen Normal, Ur Leukocyte Esterase 500 H Micro: Microbiology 11/09/23 17:09 Mucosa - Nose SARS-CoV-2, Influenza & RSV (PCR) - Final ABG Data ABG results: ABG 11/09/23 17:06 Specimen Type ART Sample Site L Radial pH 7.41 Bicarbonate Actual 29.0 H Total CO2 30 Base Excess 5 H O2 Saturation 94 L O2 % 15.0 ABG pCO2 45.4 H ABG pO2 70 L Thompson Test Positive O2 Delivery Device NRB Vent Mode Not entered Imaging Radiology Impression Brain CT 11/09/23 17:46 IMPRESSION: There are no acute findings. Chronic involutional changes of the brain. Electronically Signed: Moo Yanes MD at 19:06 EDT , Chest X-Ray 11/09/23 17:55 IMPRESSION: There are no acute findings. Electronically Signed: Moo Yanes MD at 18:28 EDT , Assessment & Plan Assessment/Plan (1) COVID-19: (2) COPD with exacerbation: (3) Acute hypoxic on chronic hypercapnic respiratory failure: (4) Acute cystitis without hematuria: (5) Hypokalemia: (6) Acute metabolic encephalopathy: (7) FTT (failure to thrive) in adult: (8) History of pulmonary embolus (PE): (9) History of coronary artery stent placement: PLAN: Plan 1. COVID-19 positive PCR assay with a history of COVID-19 - Admit to ICU under contact and droplet isolation. Continue IV Decadron and add IV Azithromycin with IV Pepcid. Give nebulizers prn for bronchospasm. 2. AE asthma/COPD triggered by #1 in the setting of chronic tobacco abuse - Tobacco Cessation will be strongly encouraged when patient's sensorium clears. Place Nicotine patch to control cravings. 3. Ceisr-ti-mravbqx hypoxic and Hypercapnic Respiratory Failure requiring BiPAP due to #1 & #2 - Wean BiPAP as tolerated. 4. Acute Cystitis; without hematuria adding to the complexity of #1 - #3 - Give empiric IV Zosyn and await culture and sensitivity data. 5. Mild Hypokalemia of 3.4 mmol/L present on admission - Give supplemental KCl and then recheck level in the AM to confirm repletion. 6. Acute Metabolic Encephalopathy attributable to #1 - #5 - Check B12, Folate, TSH, UDS and MODESTO to evaluate for potential reversible causes of confusion. Otherwise, continue supportive care as noted above and monitor for improvement. 7. Chronic debility; with history of adult failure to thrive adding to the burden of disease outlined in #1 - #6 - PT/OT and Case Management to consult and treat in the AM on-rounds for further recommendations with help appreciated in advance. 8. History of LLE DVT/PE (2021) with subsequent GI bleed and IVC filter placement - Noted. Check d-dimer. 9. Essential hypertension - Continue home regimen plus give prn IV Hydralazine for systolic blood pressure > 160 mmHg. 10. Hyperlipidemia - Resume statin as previous. 11. Overweight; with BMI of 29.7 this admission - Weight loss will also be recommended when sensorium clears. Check TSH. 12. DM-2; of unknown control - ADA diet. FSBS q. AC/HS plus SSI. Check HgbA1c to objectively evaluate quality if diabetic control. 13. CAD; s/p numerous stents - Noted. Patient has already had two normal troponins this admission. 14. History of JO ANN - Stable with hemoglobin of 10.9 g/dL present on admission. 15. History of Hodgkin's Lymphoma (1999) - Noted. 16. History of basal cell carcinoma - Noted. 17. History of pilonidal cyst; s/p excision (1967) - Noted for the sake of completeness. 18. RA - Chronic and stable with no evidence of acute flare. 19. OA - Give Tylenol prn. 20. DVT prophylaxis - Lovenox 40 mg sq daily plus SCD's. Total time: Approximately 75 minutes. Charges/Coding Visit Charges Inpatient E&M: 86892 Init Hosp L3
[2023-11-09 19:40] LABS: Troponin-I HS 44 pg/mL (3.0-78.0)
[2023-11-09 19:46] LABS: White Blood Cells 10-25 SEEN /hpf (0-5); Yeast-Urine 3+ /hpf (None Seen)
[2023-11-09] MEDS: Famotidine 200 MG/20 ML MDV 20 MG in 0.9% Normal Saline (Pres. free 8 ML 300 MG IV (20:17)
[2023-11-09] MEDS: Doxycycline 100 MG in Dextrose 5%-Water (250mL Bag) 250 ML 250 MG IV (20:17)
[2023-11-09] MEDS: dexAMETHasone 10 MG/ML Vial 6 MG IV (20:20)
[2023-11-09] MEDS: 0.9% Normal Saline (1000mL) 1,000 ML 50 ML IV (21:18)
[2023-11-09] MEDS: Enoxaparin 40 MG/0.4 ML Syringe SC (22:08)
[2023-11-09] MEDS: Insulin Lispro 100 UNIT/ML INSULN.PEN SC (22:08)
[2023-11-09 22:31] LABS: Bedside Glucose 271 mg/dL (74-106)
--- NOTE | 2023-11-09 23:58 | CPS ---
AVAPS was initiated by SCRIPT COORDINATOR due to low VT's
[2023-11-10] VITALS (20 sets, daily range): BP systolic 97–130; BP diastolic 52–92; PULSE 64–115; RESP 12–26; TEMP 35.8–36.3; O2SAT 95–100; BMI 28.6
[2023-11-10 01:22] LABS: Alcohol, Blood (Medical)-Serum < 3.0 mg/dL; Amphetamine Urine VISTA NEGATIVE (<1000 ng/mL); Barbiturate Urine VISTA NEGATIVE (< 200 ng/mL); Benzodiazepine Urine VISTA NEGATIVE (< 200 ng/mL); Cocaine Urine VISTA NEGATIVE (< 300 ng/mL); Ecstacy Urine VISTA NEGATIVE (< 500 ng/mL); Methadone Urine VISTA NEGATIVE (< 300 ng/mL); PCP Urine VISTA NEGATIVE (< 25 ng/mL); THC Urine VISTA NEGATIVE (< 50 ng/mL); Vista UDS pH Range 5
[2023-11-10 01:24] LABS: D-Dimer Quantitative (DVT/PE) 1.37 FEU/ug/m (0.27-0.49)
--- NOTE | 2023-11-10 04:26 | CT_ITS ---
EXAM: CT ANGIOGRAPHY CHEST WITHOUT AND WITH INTRAVENOUS CONTRAST CLINICAL INDICATION: SOB with COVID-19+ and elevated d-dimer. SOB with COVID-19+ and elevated d-dimer. TECHNIQUE: Helically acquired angiography images were obtained of the chest without and with intravenous contrast. This CT exam was performed using one or more of the following dose reduction techniques: automated exposure control, adjustment of the mA and/or kV according to patient size, and/or use of iterative reconstruction technique. MIP reconstructed images were created and reviewed. CONTRAST: IV 100mL [id number] RADIATION DOSE: CTDIvol = 26.89 mGy, DLP = 596.20 mGy-cm COMPARISON: Chest x-ray 11/09/2023. CT scan chest 03/16/2023. FINDINGS: PULMONARY ARTERIES: Unremarkable. Normal in caliber. No evidence of pulmonary embolism. AORTA: There is atherosclerotic calcification of the thoracic aorta. Normal in caliber. No evidence of dissection. GREAT VESSELS OF AORTIC ARCH: Unremarkable. Normal in caliber. No evidence of dissection. LUNGS AND PLEURAL SPACES: There is bronchiectasis bilaterally, most prominent in the lower lobes. There is bilateral lower lobe bronchial wall thickening, which is likely insurance follow up representative of an active infectious or inflammatory bronchitis. There is mild atelectasis in the lung bases, left greater than right, which is not significantly changed from the February exam. There is no demonstrated acute pulmonary airspace infiltrate. No mass. No pleural effusion or thickening. HEART: There are coronary artery calcifications. Heart size is normal. No pericardial effusion. There are sternotomy wires. MEDIASTINUM: Unremarkable. No mediastinal or hilar adenopathy. Esophagus is unremarkable. No hiatal hernia. THYROID: Unremarkable. No thyroid lesions. BONES/JOINTS: There are multilevel degenerative changes in the visualized spine. There are bridging osteophytes at multiple contiguous levels of the thoracic spine, consistent with DISH (diffuse idiopathic skeletal hyperostosis). No suspicious lytic or blastic abnormality. GALLBLADDER AND BILE DUCTS: There are calcified gallstones. CT/CTA Chest W/WO Contrast IMPRESSION: 1. No evidence for pulmonary embolism, aortic aneurysm, or aortic dissection. 2. Worsened bronchial wall thickening in the lower lobes bilaterally, consistent with an active infectious or inflammatory bronchitis. 3. Chronic bronchiectasis. Chronic atelectasis in the lung bases. No demonstrated acute pulmonary airspace infiltrate. 4. Atherosclerosis. Electronically Signed: Tej Rico MD at 6:36 EDT Reading Location ID and State: [facility] / [place] , Service support ,
[2023-11-10] MEDS: Insulin Lispro 100 UNIT/ML INSULN.PEN SC ×5 (04:43→21:53)
[2023-11-10] MEDS: 0.9% Saline Lock 10 ML Syringe IV ×2 (04:43→09:53)
[2023-11-10 04:54] LABS: Hemoglobin 10.1 g/dL (13.0-16.5); Mean Corp Hgb Conc 31.6 g/dL (32-36); Mean Corpuscular Volume 101.3 fL (80-94); Mean Platelet Vol. 10.6 fl (6.2-12.0); POSITIVE COUNT YES; POSITIVE MORPHOLOGY YES; Platelet Count 241 K/mm3 (150-450); RBC Distribution Width CV 16.2 % (11.6-14.6); RBC Distribution Width SD 61.1 fl (35.1-43.9); Red Blood Count 3.16 M/mm3 (4.6-6.2); White Blood Count 9.2 K/mm3 (4.4-11.0)
[2023-11-10 05:01] LABS: Differential Indicated MANUAL DIFF
[2023-11-10 05:31] LABS: Myelocyte 3 % (0-0); Neutrophil-Band 43 % (0-5); Neutrophil-Segmented 41 % (47-70); Total Cells Counted 100 (MANUAL DIFF)
[2023-11-10 05:32] LABS: Basophil 2 % (0-1); Differential Comment SCANNED; Lymphocyte 10 % (19-41); Promyelocyte 1 % (0-0)
[2023-11-10 05:33] LABS: Absolute Lymphocyte Count 0.92 X10^3/uL (0.83-4.51); Absolute Neutrophil Count 7.7 X10^3/uL (2.0-7.7)
[2023-11-10 05:42] LABS: Bedside Glucose 251 mg/dL (74-106)
[2023-11-10 05:46] LABS: ALB/GLOB Ratio 0.8 RATIO (0.9-2.4); AST(SGOT) 11 U/L (15-37); Alanine Aminotransfer ALT/SGPT 16 U/L (16-61); Alkaline Phosphatase 45 U/L (45-117); Anion Gap 4 (5-15); BUN 29 mg/dL (7-18); BUN/Creat Ratio 30.1 RATIO (10-20); Calcium,Total 6.5 mg/dL (8.5-10.1); Chloride 118 mmol/L (98-107); Creatinine, Serum 0.96 mg/dL (0.70-1.30); EST Glomerular Filtration Rate 81 mL/min (>60); Est Glom Filt Rate - Afr Amer 98 mL/min (>60); Estimated Creatinine Clearance 78.59 ml/min; Globulin 2.4 g/dL (2.2-4.2); Glucose 238 mg/dL (74-106); Magnesium 1.6 mg/dL (1.6-2.6); Potassium 3.5 mmol/L (3.5-5.1); Protein, Total 4.4 g/dL (6.4-8.2); Sodium Level 144 mmol/L (136-145); Thyroid Stim Hormone (TSH) 0.135 uIU/mL (0.358-3.740)
[2023-11-10 06:05] LABS: Allen Test Positive; Base Excess 0 mmol/L (-2 to +2); Bicarbonate 25.4 mmol/L (22-26); Blood Gas Specimen Type ART; Mode Not entered; O2 Delivery Device Cannula; PO2 85 mmHG (75-100); SITE R Radial; SO2 96 % (95-99); Total Carbon Dioxide 27 mmol/L; pH 7.37 (7.35-7.45)
--- NOTE | 2023-11-10 07:17 | PN.HOSP_ITS ---
Reason for Visit Reason for Visit: Diagnoses Hypokalemia (11/09/23) Metabolic encephalopathy (11/09/23) Chronic obstructive pulmonary disease with (acute) exacerbation (11/09/23) Acute respiratory failure with hypoxia (11/09/23) Chronic respiratory failure with hypercapnia (11/09/23) Acute cystitis without hematuria (11/09/23) Adult failure to thrive (11/09/23) Other specified abnormal findings of blood chemistry (11/09/23) COVID-19 (11/09/23) Personal history of pulmonary embolism (11/09/23) Presence of coronary angioplasty implant and graft (11/09/23) Objective Data Objective Data Vital Signs: Vital Signs Temp Pulse Resp BP Pulse Ox O2 Del Method O2 Flow Rate 96.9 F L 70 25 H 103/72 96 Nasal Cannula 4 11/10/23 06:00 11/10/23 07:00 11/10/23 07:00 11/10/23 07:00 11/10/23 07:00 11/10/23 07:00 11/10/23 07:00 FiO2 30 11/10/23 04:00 Oxygen Flow Rate (L/min) 4 Oxygen Delivery Method Nasal Cannula Weight: 204 lb 12.951 oz Body Mass Index (BMI) 28.6 Intake & Output: Intake and Output for Last 24 Hours 11/08/23 11/09/23 11/10/23 23:59 23:59 23:59 Intake Total 370 / 370 120 / 120 Output Total 100 / 100 Balance 370 / 370 20 / 20 Lab / Micro Data 11/10/23 04:40 11/10/23 04:40 Labs: Laboratory Results - last 24 hr 11/09/23 17:09: Sodium 143, Potassium 3.4 L, Chloride 115 H, Carbon Dioxide 22.0, Anion Gap 6, BUN 27 H, Creatinine 1.21, Estim Creat Clear Calc 63.47, Est GFR (MDRD) Af Amer 75, Est GFR (MDRD) Non-Af 62, BUN/Creatinine Ratio 22.3 H, G lucose 212 H, Lactic Acid 1.6, Calcium 7.5 L, Troponin I High Sens 39, B- Natriuretic Peptide Cancelled 11/09/23 17:45: WBC 10.8, RBC 3.38 L, Hgb 10.9 L, Hct 33.4 L, MCV 98.8 H, MCH 32.2 H, MCHC 32.6, RDW Std Deviation 57.8 H, RDW Coeff of Rafael 16.1 H, Plt Count 247, MPV 10.7, Immature Gran % (Auto) 4.100 H, Neut % (Auto) 71.8 H, Lymph % (Auto) 11.8 L, [place] % (Auto) 10.9 H, Eos % (Auto) 0.8, Baso % (Auto) 0.6, A bsolute Neuts (auto) 7.8 H, Absolute Lymphs (auto) 1.28, Nucleated RBC % 0.6, B- Natriuretic Peptide 201.0 H 11/09/23 19:12: Troponin I High Sens 44, Urine Color Yellow, Urine Clarity Clear, Urine pH 6.0, Ur Specific [place] 1.015, Urine Protein 30 H, Urine Glucose (UA) 1000 H, Urine Ketones Negative, Urine Occult Blood 25 H, Urine Nitrite Negative, Urine Bilirubin Negative, Urine Urobilinogen Normal, Ur Leukocyte Esterase 500 H, Urine RBC 0 SEEN, Urine WBC 10-25 SEEN, Ur Squamous Epith Cells 0 SEEN, Urine Bacteria 0 SEEN, Urine Mucus 0 SEEN, Urine Yeast 3+ 11/09/23 22:06: POC Glucose 271 H 11/10/23 00:50: D-Dimer Quant (PE/DVT) 1.37 H*, Folate 46.50, Urine Opiates Screen NEGATIVE, Urine Methadone Screen NEGATIVE, Ur Barbiturates Screen NEGATIVE, Ur Phencyclidine Scrn NEGATIVE, Ur Amphetamines Screen NEGATIVE, MDMA (Ecstasy) Screen NEGATIVE, U Benzodiazepines Scrn NEGATIVE, Urine Cocaine Screen NEGATIVE, U Cannabinoids Screen NEGATIVE, Ur Drug Screen Comment , Ethyl Alcohol < 3.0 11/10/23 04:36: POC Glucose 251 H 11/10/23 04:40: WBC 9.2, RBC 3.16 L, Hgb 10.1 L, Hct 32.0 L, MCV 101.3 H, MCH 32.0, MCHC 31.6 L, RDW Std Deviation 61.1 H, RDW Coeff of Rafael 16.2 H, Plt Count 241, MPV 10.6, Neut % (Auto) Not Reportable, Absolute Neuts (auto) 7.7, Absolute Lymphs (auto) 0.92, Total Counted 100, Neutrophils % (Manual) 41 L, Band Neutrophils % 43 H, Lymphocytes % (Manual) 10 L, Basophils % (Manual) 2 H, M yelocytes % 3 H, Promyelocytes % 1 H, Differential Comment SCANNED, Diff Path Review June, Sodium 144, Potassium 3.5, Chloride 118 H, Carbon Dioxide 22.0, Anion Gap 4 L, BUN 29 H, Creatinine 0.96, Estim Creat Clear Calc 78.59, Est GFR (MDRD) Af Amer 98, Est GFR (MDRD) Non-Af 81, BUN/Creatinine Ratio 30.1 H, G lucose 238 H, Calcium 6.5 L*, Phosphorus 4.0, Magnesium 1.6, Total Bilirubin 0.40, AST 11 L, ALT 16, Alkaline Phosphatase 45, Total Protein 4.4 L, Albumin 2.0 L, Globulin 2.4, Albumin/Globulin Ratio 0.8 L, TSH 0.135 L Micro: Microbiology 11/09/23 17:09 Mucosa - Nose SARS-CoV-2, Influenza & RSV (PCR) - Final ABG Data ABG results: ABG 11/09/23 11/10/23 17:06 06:01 Specimen Type ART ART Sample Site L Radial R Radial pH 7.41 7.37 Bicarbonate Actual 29.0 H 25.4 Total CO2 30 27 Base Excess 5 H 0 O2 Saturation 94 L 96 O2 % 15.0 4.0 ABG pCO2 45.4 H 44.0 ABG pO2 70 L 85 Thompson Test Positive Positive O2 Delivery Device NRB Cannula Vent Mode Not entered Not entered Radiography Diagnostic Testing: Radiology Impression Brain CT 11/09/23 17:46 IMPRESSION: There are no acute findings. Chronic involutional changes of the brain. Electronically Signed: Moo Yanes MD at 19:06 EDT , Chest X-Ray 11/09/23 17:55 IMPRESSION: There are no acute findings. Electronically Signed: Moo Yanes MD at 18:28 EDT , Chest CTA 11/10/23 04:26 IMPRESSION: 1. No evidence for pulmonary embolism, aortic aneurysm, or aortic dissection. 2. Worsened bronchial wall thickening in the lower lobes bilaterally, consistent with an active infectious or inflammatory bronchitis. 3. Chronic bronchiectasis. Chronic atelectasis in the lung bases. No demonstrated acute pulmonary airspace infiltrate. 4. Atherosclerosis. Electronically Signed: Tej Rico MD at 6:36 EDT , Physical Exam Narrative Seen and examined Patient is on 4 L of oxygen. He states he is on 4 L at home history of COPD. He has a chronic cough and did not notice any change in frequency or severity but more sputum production. He gets more cough while laying down position. Denies aspiration. Found to be COVID-positive in the hospital. Increased shortness of breath than baseline. Physical exam General: Alert, Oriented x3, Cooperative HEENT: Atraumatic, PERRLA, EOMI, Normocephalic Oral: Oral mucosa moist. No Gingival or Mucosal Lesions/ Ulcerations Neck: Supple, No JVD, Negative Carotid Bruits Chest wall/Lungs: Air entry diminished in bilateral lungs. Bilateral expiratory wheezing and rhonchi. Cardiovascular: Sinus rhythm, Normal S1, Normal S2, No M/G/R Abdomen: Bowel Sounds Present, Soft, Non Tender, Non-Distended : No dysuria. No renal angle tenderness. No suprapubic tenderness. Extremities: mild 1+ pitting edema, Capillary Refill Less than 3 Seconds Skin: No rashes, No breakdown Musculoskeletal: No Tenderness to Palpation of Joints or Extremities. ROM full. Neurological: Cranial nerves II-XII grossly intact, DTR 2+/4. No acute focal neurological deficit. Psych/Mental Status: Normal Affect, Appropriate. Assessment & Plan Assessment/Plan (1) COVID-19: (2) COPD with exacerbation: (3) Acute hypoxic on chronic hypercapnic respiratory failure: (4) Acute cystitis without hematuria: (5) Hypokalemia: (6) Acute metabolic encephalopathy: PLAN: Plan 73-year-old male was admitted with lethargy, less responsive than baseline, cough and short of breath for 1 day history. Denies chest pain or palpitation or abdominal pain. Found to have pneumonia 1. Bilateral COVID-19 pneumonia with a history of COVID-19 - Admit to ICU under contact and droplet isolation. Chest x-ray and CTA chest were reviewed. It is mainly suggestive of bronchopneumonia with bilateral bronchial wall thickening, bronchiectasis prominent in lower lobes. No demonstrated acute airspace infiltrate. Continue IV Decadron and add IV Azithromycin with IV Pepcid. Give nebulizers prn for bronchospasm. 11/09: Patient feels much better on baseline oxygen. Downgraded to PCU. ID consulted 2. AE asthma/COPD, exacerbated by COVID-19 pneumonia with history of chronic tobacco abuse - Tobacco Cessation will be strongly encouraged when patient's sensorium clears. Place Nicotine patch to control cravings. 11/09: Shortness of breath, cough and wheezing better. 3. Heecg-sm-ipmiewg hypoxic and Hypercapnic Respiratory Failure requiring BiPAP - Wean BiPAP as tolerated. ABG reviewed. pH 7.40, 7.37. pCO2 44-45. Does not have significant hypercarbia. Patient weaned off BiPAP. 4. Acute Cystitis; without hematuria adding to the complexity - Give empiric IV Zosyn and await culture and sensitivity data. 5. Mild Hypokalemia of 3.4 mmol/L present on admission - Give supplemental KCl and then recheck level in the AM to confirm repletion. 11/09K 3.. Potassium replacement continued. Magnesium low normal 1.6. Magnesium sulfate ordered. Serum phosphorus normal. 6. Acute infectious metabolic Encephalopathy, multiple etiologies including infectious, metabolic- Check B12, Folate, TSH, UDS and MODESTO to evaluate for potential reversible causes of confusion. Otherwise, continue supportive care as noted above and monitor for improvement. 11/09: Acute encephalopathy from infectious and metabolic encephalopathy resolved. TSH low. 7. Chronic debility; with history of adult failure to thrive adding to the burden of disease outlined in #1 - #6 - PT/OT and Case Management to consult and treat in the AM on-rounds for further recommendations with help appreciated in advance. 8. History of LLE DVT/PE (2021) with subsequent GI bleed and IVC filter placement - Noted. Check d-dimer. 9. Essential hypertension - Continue home regimen plus give prn IV Hydralazine for systolic blood pressure > 160 mmHg. 10. Hyperlipidemia - Resume statin as previous. 11. Overweight; with BMI of 29.7 this admission - Weight loss will also be recommended when sensorium clears. Check TSH. 12. DM-2; of unknown control - ADA diet. FSBS q. AC/HS plus SSI. 13. CAD; s/p numerous stents - Noted. Patient has already had two normal troponins this admission. 14. History of JO ANN - Stable with hemoglobin of 10.9 g/dL present on admission. 15. History of Hodgkin's Lymphoma (1999) - Noted. 16. History of basal cell carcinoma - Noted. 17. History of pilonidal cyst; s/p excision (1967) - Noted for the sake of completeness. 18. RA - Chronic and stable with no evidence of acute flare. 19. OA - Give Tylenol prn. 20. DVT prophylaxis - Lovenox 40 mg sq daily plus SCD's. Clinical Impression(s) from Imaging Studies Brain CT 11/09/23 17:46 IMPRESSION: There are no acute findings. Chronic involutional changes of the brain. Electronically Signed: Moo Yanes MD at 19:06 EDT Reading Location ID and State: [facility] / [place] , Service support , Chest X-Ray 11/09/23 17:55 IMPRESSION: There are no acute findings. Chest CTA 11/10/23 04:26 IMPRESSION: 1. No evidence for pulmonary embolism, aortic aneurysm, or aortic dissection. 2. Worsened bronchial wall thickening in the lower lobes bilaterally, consistent with an active infectious or inflammatory bronchitis. 3. Chronic bronchiectasis. Chronic atelectasis in the lung bases. No demonstrated acute pulmonary airspace infiltrate. 4. Atherosclerosis. Charges/Coding Visit Charges Inpatient E&M: 18093 Subs Hosp L2
[2023-11-10 07:52] LABS: Vitamin B12 592 pg/mL (211-911)
[2023-11-10 08:06] LABS: Hemoglobin A1c 13.2 % (3.8-5.6)
[2023-11-10] MEDS: Remdesivir 200 MG in 0.9% Normal Saline (250mL Bag) 210 ML 250 MG IV (08:53)
[2023-11-10 09:15] LABS: Pathologist Review Reviewed
[2023-11-10] MEDS: 0.9% Normal Saline (250mL Bag) 250 ML 15 ML IV (09:53)
[2023-11-10] MEDS: Ceftriaxone 1 GM/50 ML BAG IV (09:53)
[2023-11-10 10:16] LABS: Procalcitonin 0.12 ng/mL (0.00-0.09)
[2023-11-10] MEDS: Ferrous Sulfate 325 MG Tablet PO (10:31)
[2023-11-10] MEDS: Multivitamins,Therapeutic Tablet 1 TABLET PO (10:31)
[2023-11-10] MEDS: guaiFENesin/D-Methorphan TAB.SR.12H 1 TABLET PO ×2 (10:31→21:54)
[2023-11-10] MEDS: Enoxaparin 40 MG/0.4 ML Syringe SC (10:31)
[2023-11-10] MEDS: Carvedilol 3.125 MG TABLET PO ×2 (10:31→16:19)
[2023-11-10] MEDS: dexAMETHasone 10 MG/ML Vial 6 MG IV ×2 (10:32→21:55)
[2023-11-10] MEDS: Famotidine 200 MG/20 ML MDV 20 MG in 0.9% Normal Saline (Pres. free 8 ML 300 MG IV ×2 (10:32→21:54)
[2023-11-10] MEDS: Finasteride 5 MG Tablet PO (10:32)
[2023-11-10] MEDS: Azithromycin 500 MG in Dextrose 5%-Water (250mL Bag) 250 ML 250 MG IV (10:42)
--- NOTE | 2023-11-10 10:42 | CASEMGMT ---
TARAH DEL RIO Assessment Face to Face with patient for initial transition planning/care coordination assessment. TARAH DEL RIO introduced self and role at [facility], pt voices understanding. Pt is A&Ox4 and is resting comfortably in bed and is calm. Care providers, pharmacy, and demographics verified. Admitting dx: COVID, AE COPD LACE Strata: 2 PCP: Donna Will Specialists: Anna Marie Singleton (Pulm), MARK, Theodore (Uro), Benny (Onc), Friend (GI) Preferred Pharmacy: [facility] Insurance: [facility] Prescription Benefit: Yes LNOK: Ca Quintana (W), Ray Quintana (Son) Living Arrangements: Pt lives with his in a two story home with two steps to enter ADLs/IADLs: States that he is ind. However, current 6-click score is 12 Transportation: Self, GD, Son DME: Home oxygen through [employer]. Confirmed 4L Cont via NC and 5L with Exertion. Pt has a concentrator, portable tanks, and a pulse ox. Pt states that he can have a family member bring in a portable tank at time of DC. Pt also has a BGM and supplies, nebulizer, shower chair, raised TS, Hospital bed, Lift chair, grab bars, FWW, Rollator, and W/C. HHC/SNF: Reports Hx with [facility] and [facility]. Denies SNF Hx Pt?s goal: Return to PLOF Plan: TBD. Pt states that he prefers to go home at time of DC. Pt states that he is unsure if he would like HHC or OP Tx set up at this time. PT is pending. QUANG and TYE to follow. Desi Riddle RN, CM
[2023-11-10] MEDS: Ipratropium/Albuterol Sulfate 3 ML AMPUL.NEB INHALATION ×3 (11:46→19:18)
--- NOTE | 2023-11-10 14:00 | PCM.CONS.GEN ---
Assessment & Plan Assessment/Plan (1) Acute metabolic encephalopathy: (2) Acute hypoxic on chronic hypercapnic respiratory failure: (3) COVID-19: PLAN: Covid (+). Uag neg. Bcx pending. On dex/remdesivir, on empiric ceftriaxone and azithro. Will follow, thank you HPI Consult Data Date of Consult: 11/10/23 HPI Narrative Reason for Consultation: covid HPI Narrative: SAL ALONZO, is a 73 M with h/o DM, htn, CAD, COPD, remote hodgkin's, presented 11/08 with one day of confusion, fever, cough, fatigue, dyspnea. Found to have fever, hypoxia, (+) for covid. Reports granddaughter sick recently with URI. Lives with who has some fatigue. Admitted to icu on remdesivir, dex, ceftriaxone, and azithro. Feeling better. Full ROS performed and neg except as noted above. [facility] Medical History FTT (failure to thrive) in adult Former smoker On home oxygen therapy Bleeding tendency Ulcer High cholesterol History of stress test HTN (hypertension) Tobacco abuse History of pulmonary embolus (PE) (04/30/21) Essential hypertension Type 2 diabetes mellitus DVT (deep venous thrombosis) (05/01/21) Rhinovirus Acute respiratory failure with hypoxia Physical debility COVID-19 in immunocompromised patient Nicotine dependence, cigarettes, uncomplicated Diabetes Arthritis Cancer COPD (chronic obstructive pulmonary disease) History of basal cell carcinoma Atherosclerosis of coronary artery of [place] heart without angina pectoris Pneumonia Non-Hodgkin lymphoma History of pilonidal cyst Allergic rhinitis 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 complications Gastritis Colon polyp Obesity Asthma Chronic bronchitis Positive colorectal cancer screening using Cologuard test RA (rheumatoid arthritis) Home Medications ?Medication ?Instructions ?Recorded ?Last Taken ?Type nitroglycerin 0.4 mg sublingual 0.4 mg sublingual Q5M PRN chest 09/25/20 Unknown Rx tablet (Nitrostat) pain #30 tabs finasteride 5 mg tablet 5 mg PO DAILY prostate 08/14/22 03/16/23 History tamsulosin 0.4 mg capsule 0.4 mg PO QHS prostate 08/14/22 03/15/23 History multivitamin 1 tab PO DAILY vitamin 09/13/22 03/16/23 History menthol 0.44 %-zinc oxide 20.6 % 1 applic topical 4-6XD PRN skin 03/07/23 Unknown Rx topical ointment (Calmoseptine) irritation #113 grams ferrous sulfate 325 mg (65 mg 325 mg PO LUNCH 30 days #30 tabs 03/21/23 Unknown Rx iron) tablet (FeroSul) needle (disp) 32 gauge 32 gauge x #100 ea 03/21/23 Unknown Rx 07/09 insulin aspart U-100 100 unit/mL See Protocol subcut ACHS #15 mL 03/22/23 Unknown Rx (3 mL) subcutaneous pen furosemide 40 mg tablet (Lasix) 20 mg (1/2 x 40 mg) PO DAILY 03/27/23 Unknown Rx diuretic #30 tabs guaifenesin 100 mg/5 mL oral liquid 600 mg PO Q4H PRN cough 05/07/23 Unknown History prednisone 2.5 mg tablet 5 mg PO DAILY copd 05/28/23 Unknown History carvedilol 3.125 mg tablet 3.125 mg PO BID #60 tabs 06/05/23 Unknown Rx empagliflozin 10 mg tablet 10 mg PO DAILY #30 tabs 06/05/23 Unknown Rx (Jardiance) atorvastatin 40 mg tablet 20 mg (1/2 x 40 mg) PO QHS 09/18/23 Unknown Rx cholesterol #90 tabs budesonide 1 mg/2 mL suspension 1 mg (2 mL) inhalation Q12H #120 mL 09/19/23 Unknown Rx for nebulization ipratropium 0.5 mg-albuterol 3 mg 3 ml inhalation Q4H PRN PRN SOB 09/19/23 Unknown Rx (2.5 mg base)/3 mL nebulization &/OR WHEEZING #270 mL soln escitalopram oxalate 10 mg tablet 10 mg PO DAILY mood 90 days #90 10/29/23 Unknown Rx tabs mirtazapine 15 mg tablet (Remeron) 7.5 mg (1/2 x 15 mg) PO QHS sleep 10/29/23 Unknown Rx #90 tabs pantoprazole 40 mg tablet,delayed 40 mg PO BID reflux 3 months #180 10/29/23 Unknown Rx release tabs Allergy/AdvReac Type Severity Reaction Status Date / Time levofloxacin (From [employer]) AdvReac Intermediate diarrhea, Verified 11/09/23 16:41 dizziness, GI upset, weakness Family History Father Arthritis Bleeding disorder Hypertension Kidney disease Cancer Skin Anemia blood clots Emphysema lung Mother Colon cancer Cancer Lung Cancer Diabetes Brother Thyroid disorder Surgical History History of embolic filter insertion History of heart artery stent Status post cardiac surgery H/O cardiac catheterization Presence of IVC filter (04/2021) History of coronary artery stent placement (10/22/13) History of thymectomy Hx of lymph node excision History of excision of pilonidal cyst Social History household members: spouse Smoking Status: Former smoker Tobacco: How many years used: 55 second hand exposure: Yes alcohol intake: current alcohol intake frequency: holidays/special occasions only substance use type: does not use caffeine: Yes Type: coffee Number of servings: 3 what type of physical activity do you participate in: none frequency: does not exercise seatbelt use: always Physical Exam Const alert, oriented x3 and no apparent distress General Appearance: cooperative HEENT normocephalic and head/scalp atraumatic Eyes PERRL and EOMs intact bilaterally Neck supple and No nodes Resp Auscultation: diminished lung sounds Cardio regular rate and regular rhythm GI soft to palpation, non-tender and non-distended Extremity General Extremity: Negative for edema Skin no rashes or lesions noted Neuro CN's II-XII intact bilaterally Lab / Micro Data Attestation: I reviewed the patient's lab results. 11/10/23 04:40 11/10/23 04:40 Labs: Laboratory Results - last 24 hr 11/09/23 17:09: WBC Cancelled, Corrected WBC Cancelled, RBC Cancelled, Hgb Cancelled, Hct Cancelled, MCV Cancelled, MCH Cancelled, MCHC Cancelled, RDW Std Deviation Cancelled, RDW Coeff of Rafael Cancelled, Plt Count Cancelled, MPV Cancelled, Immature Gran % (Auto) Cancelled, Neut % (Auto) Cancelled, Lymph % (Auto) Cancelled, [place] % (Auto) Cancelled, Eos % (Auto) Cancelled, Baso % (Auto) Cancelled, Absolute Neuts (auto) Cancelled, Absolute Lymphs (auto) Cancelled, Total Counted Cancelled, Neutrophils % (Manual) Cancelled, Band Neutrophils % Cancelled, Lymphocytes % (Manual) Cancelled, Monocytes % (Manual) Cancelled, Eosinophils % (Manual) Cancelled, Basophils % (Manual) Cancelled, Metamyelocytes % Cancelled, Myelocytes % Cancelled, Promyelocytes % Cancelled, Blast Cells % Cancelled, Plasma Cell % (Manual) Cancelled, Other Cells % Cancelled, Nucleated RBC % Cancelled, Nucleated RBCs/100 WBC Cancelled, Differential Comment Cancelled, Diff Path Review Cancelled, Hypersegmented Neuts Cancelled, Atypical Lymphocytes Cancelled, Reactive Lymphocytes Cancelled, Smudge Cells Cancelled, Toxic Granulation Cancelled, Toxic Vacuolation Cancelled, Dohle Bodies Cancelled, Matt Rods Cancelled, Platelet Estimate Cancelled, Plt Morphology Comment Cancelled, RBC Morphology Cancelled 11/09/23 17:09: RBC Morphology Cancelled, Polychromasia Cancelled, Hypochromasia Cancelled, Basophilic Stippling Cancelled, Anisocytosis Cancelled, Microcytosis Cancelled, Macrocytosis Cancelled, Spherocytes Cancelled, Sickle Cells Cancelled, Target Cells Cancelled, Tear Drop Cells Cancelled, Ovalocytes Cancelled, Stomatocytes Cancelled, [place] Bodies Cancelled, Santi Cells Cancelled, Bite Cells Cancelled, Crenated Cell Cancelled, Acanthocytes (Spur) Cancelled, Rouleaux Cancelled, Schistocytes Cancelled, Sodium 143, Potassium 3.4 L, Chloride 115 H, Carbon Dioxide 22.0, Anion Gap 6, BUN 27 H, Creatinine 1.21, Estim Creat Clear Calc 63.47, Est GFR (MDRD) Af Amer 75, Est GFR (MDRD) Non-Af 62, BUN/Creatinine Ratio 22.3 H, Glucose 212 H, Lactic Acid 1.6, Calcium 7.5 L, Troponin I High Sens 39, B-Natriuretic Peptide Cancelled 11/09/23 17:45: WBC 10.8, RBC 3.38 L, Hgb 10.9 L, Hct 33.4 L, MCV 98.8 H, MCH 32.2 H, MCHC 32.6, RDW Std Deviation 57.8 H, RDW Coeff of Rafael 16.1 H, Plt Count 247, MPV 10.7, Immature Gran % (Auto) 4.100 H, Neut % (Auto) 71.8 H, Lymph % (Auto) 11.8 L, [place] % (Auto) 10.9 H, Eos % (Auto) 0.8, Baso % (Auto) 0.6, Absolute Neuts (auto) 7.8 H, Absolute Lymphs (auto) 1.28, Nucleated RBC % 0.6, B-Natriuretic Peptide 201.0 H 11/09/23 19:12: Troponin I High Sens 44, Urine Color Yellow, Urine Clarity Clear, Urine pH 6.0, Ur Specific [place] 1.015, Urine Protein 30 H, Urine Glucose (UA) 1000 H, Urine Ketones Negative, Urine Occult Blood 25 H, Urine Nitrite Negative, Urine Bilirubin Negative, Urine Urobilinogen Normal, Ur Leukocyte Esterase 500 H, Urine RBC 0 SEEN, Urine WBC 10-25 SEEN, Ur Squamous Epith Cells 0 SEEN, Urine Bacteria 0 SEEN, Urine Mucus 0 SEEN, Urine Yeast 3+ 11/09/23 22:06: POC Glucose 271 H 11/10/23 00:50: D-Dimer Quant (PE/DVT) 1.37 H*, Vitamin B12 592, Folate 46.50, Urine Opiates Screen NEGATIVE, Urine Methadone Screen NEGATIVE, Ur Barbiturates Screen NEGATIVE, Ur Phencyclidine Scrn NEGATIVE, Ur Amphetamines Screen NEGATIVE, MDMA (Ecstasy) Screen NEGATIVE, U Benzodiazepines Scrn NEGATIVE, Urine Cocaine Screen NEGATIVE, U Cannabinoids Screen NEGATIVE, Ur Drug Screen Comment , Ethyl Alcohol < 3.0 11/10/23 04:36: POC Glucose 251 H 11/10/23 04:40: WBC 9.2, RBC 3.16 L, Hgb 10.1 L, Hct 32.0 L, MCV 101.3 H, MCH 32.0, MCHC 31.6 L, RDW Std Deviation 61.1 H, RDW Coeff of Rafael 16.2 H, Plt Count 241, MPV 10.6, Neut % (Auto) Not Reportable, Absolute Neuts (auto) 7.7, Absolute Lymphs (auto) 0.92, Total Counted 100, Neutrophils % (Manual) 41 L, Band Neutrophils % 43 H, Lymphocytes % (Manual) 10 L, Basophils % (Manual) 2 H, Myelocytes % 3 H, Promyelocytes % 1 H, Differential Comment SCANNED, Diff Path Review Reviewed, Sodium 144, Potassium 3.5, Chloride 118 H, Carbon Dioxide 22.0, Anion Gap 4 L, BUN 29 H, Creatinine 0.96, Estim Creat Clear Calc 78.59, Est GFR (MDRD) Af Amer 98, Est GFR (MDRD) Non-Af 81, BUN/Creatinine Ratio 30.1 H, Glucose 238 H, Hemoglobin A1c 13.2 H, Calcium 6.5 L*, Phosphorus 4.0, Magnesium 1.6, Total Bilirubin 0.40, AST 11 L, ALT 16, Alkaline Phosphatase 45, B-Natriuretic Peptide 257.0 H, Total Protein 4.4 L, Albumin 2.0 L, Globulin 2.4, Albumin/Globulin Ratio 0.8 L, TSH 0.135 L 11/10/23 09:30: Procalcitonin 0.12 H Micro: Microbiology 11/10/23 09:47 Urine, Random Legionella Antigen - Final 11/10/23 09:47 Urine, Random Streptococcus pneumoniae Antigen (M - Final 11/09/23 17:09 Mucosa - Nose SARS-CoV-2, Influenza & RSV (PCR) - Final SARS-CoV-2 (COVID 19 PCR) ABG Data ABG results: ABG 11/09/23 11/10/23 17:06 06:01 Specimen Type ART ART Sample Site L Radial R Radial pH 7.41 7.37 Bicarbonate Actual 29.0 H 25.4 Total CO2 30 27 Base Excess 5 H 0 O2 Saturation 94 L 96 O2 % 15.0 4.0 ABG pCO2 45.4 H 44.0 ABG pO2 70 L 85 Thompson Test Positive Positive O2 Delivery Device NRB Cannula Vent Mode Not entered Not entered Imaging Radiology Impression Brain CT 11/09/23 17:46 IMPRESSION: There are no acute findings. Chronic involutional changes of the brain. Electronically Signed: Moo Yanes MD at 19:06 EDT , Chest X-Ray 11/09/23 17:55 IMPRESSION: There are no acute findings. Electronically Signed: Moo Yanes MD at 18:28 EDT , Chest CTA 11/10/23 04:26 IMPRESSION: 1. No evidence for pulmonary embolism, aortic aneurysm, or aortic dissection. 2. Worsened bronchial wall thickening in the lower lobes bilaterally, consistent with an active infectious or inflammatory bronchitis. 3. Chronic bronchiectasis. Chronic atelectasis in the lung bases. No demonstrated acute pulmonary airspace infiltrate. 4. Atherosclerosis. Electronically Signed: Tej Rico MD at 6:36 EDT ,
[2023-11-10 14:31] LABS: Bedside Glucose 395 mg/dL (74-106)
[2023-11-10] MEDS: 0.9% Normal Saline (1000mL) 1,000 ML 50 ML IV (16:16)
[2023-11-10] MEDS: Insulin Glargine-YFGN 100 UNIT/ML Pen 12 UNIT SC (17:29)
[2023-11-10] MEDS: Insulin Lispro 100 UNIT/ML INSULN.PEN 8 UNIT SC (17:30)
[2023-11-10 17:52] LABS: Bedside Glucose 418 mg/dL (74-106)
[2023-11-10] MEDS: Acetaminophen 325 MG Tablet 650 MG PO (21:53)
[2023-11-10] MEDS: Mirtazapine 15 MG Tablet 7.5 MG PO (21:54)
[2023-11-10] MEDS: Tamsulosin HCl 0.4 MG Capsule PO (21:55)
[2023-11-10] MEDS: Atorvastatin Calcium 20 MG Tablet PO (21:55)
[2023-11-10 22:54] LABS: Bedside Glucose 428 mg/dL (74-106)
[2023-11-10] MEDS: Nystatin Powder 15gm Bottle 1 APPLIC TOPICAL (23:31)
[2023-11-10] MEDS: Menthol/Lanolin/Calamine/Znox 113 GM Tube 1 APPLIC TOPICAL (23:31)
[2023-11-11 02:00] VITALS: BP 104/62; PULSE 67; RESP 19; TEMP 36.7; O2SAT 98
[2023-11-11 05:34] VITALS: BMI 29.3
[2023-11-11 06:07] LABS: Bedside Glucose 349 mg/dL (74-106)
[2023-11-11 06:16] LABS: Magnesium 2.1 mg/dL (1.6-2.6); Phosphorus 4.7 mg/dL (2.5-4.9)
[2023-11-11] MEDS: Ipratropium/Albuterol Sulfate 3 ML AMPUL.NEB INHALATION ×2 (07:16→11:35)
[2023-11-11 07:17] VITALS: PULSE 65; RESP 20; O2SAT 963
--- NOTE | 2023-11-11 07:28 | DCINST_ITS ---
Discharge Instructions Diet Discharge Diet: Low fat / Low cholesterol, 1800 Calorie Control Diet and 2000 mg Sodium Diet Activity Discharge Activity: Return to Normal Activity Weight Bearing Status: Weight bearing as tolerated Dressing / Incision Call your doctor if you observe: Fever of 101 or Higher, Coldness, Increased Pain, Numbness or Tingling, Change in Color, Inability to urinate, Inability to have a bowel movement, Shortness of breath, Dizziness, Fainting spells, Swelling in the ankles, Chest pain, Prolonged hiccupping, Increased palpitations (irregular heartbeat) and Calf discomfort Follow Up Care When: IN 2 WEEKS Test Results: Test results from this visit will be discussed in further detail at your follow- up appointment, if applicable. Discharge Plan Admission Admit Date/Time: 11/09/23 20:06 Primary Reason for Your Visit: Acute exacerbation of COPD Attending Provider: Clive Sharp Primary Care Provider: Donna Will Consulting Providers: Jordan Mendoza; Wilberto Villafuerte Discharge Orders/Prescriptions Prescriptions: New insulin lispro [Humalog KwikPen Insulin] 100 unit/mL Insulin Pen 10 unit subcut TIDAC 30 Days Qty: 15 4RF insulin lispro [Humalog KwikPen Insulin] 100 unit/mL Insulin Pen See Protocol subcut ACHS Qty: 0 0RF Protocol: 1. Sliding Scale Insulin Low Dosing Condition: 150-224 mg/dl = 1 unit Condition: 225-299 mg/dl = 2 units Condition: 300-374 mg/dl = 3 units Condition: 375-449 mg/dl = 4 units Condition: Greater than 449 call physician Protocol Text: Suggested for: - Patients on Total Daily Insulin Dose of 15-27 units - Thin, elderly, renal patients LOW DOSING ALGORITHM dextromethorphan-guaifenesin 60-1,200 mg tablet extended release 12 hr 1 tab PO BID 7 Days Qty: 14 0RF insulin glargine [Lantus Solostar U-100 Insulin] 100 unit/mL (3 mL) insulin pen 10 unit subcut DAILY 30 Days Qty: 15 4RF Rx Instructions: Hold if glucose less than 130 mg/dl levofloxacin 500 mg tablet 500 mg PO DAILY 5 Days Qty: 5 0RF dexamethasone 6 mg tablet 6 mg PO DAILY 8 Days Qty: 8 0RF Continued nitroglycerin [Nitrostat] 0.4 mg tablet, sublingual 0.4 mg SUBLINGUAL Q5M PRN (Reason: chest pain) Qty: 30 0RF Rx Instructions: until response; do not exceed 3 doses per episode multivitamin Tablet 1 tab PO DAILY tamsulosin 0.4 mg capsule 0.4 mg PO QHS finasteride 5 mg tablet 5 mg PO DAILY ipratropium-albuterol 0.5 mg-3 mg(2.5 mg base)/3 mL solution for nebulization 3 ml inhalation Q4H PRN PRN (Reason: SOB &/OR WHEEZING) Qty: 270 11RF budesonide 1 mg/2 mL suspension for nebulization 1 mg inhalation Q12H Qty: 120 11RF furosemide [Lasix] 40 mg tablet 20 mg PO DAILY Qty: 30 0RF ferrous sulfate [FeroSul] 325 mg (65 mg iron) Tablet 325 mg PO LUNCH 30 Days Qty: 30 2RF (DME) needle (disp) 32 gauge 32 gauge x 5/16 needle See Rx Instructions .Route Qty: 100 1RF Rx Instructions: As directed insulin aspart U-100 100 unit/mL (3 mL) insulin pen See Protocol subcut ACHS Qty: 15 3RF Protocol: 5. Sliding Scale Insulin High Dosing Condition: 150-209 mg/dl = 3 units Condition: 210-259 mg/dl = 6 units Condition: 260-324 mg/dl = 9 units Condition: 325-374 mg/dl = 12 units Condition: 375-409 mg/dl = 14 units Condition: 410-449 mg/dl = 16 units Condition: Greater than 449 call physician Protocol Text: - Use for Total Daily Dose of Insulin 81-120 units - Very insulin resistant or septic patients HIGH DOSING ALGORITHM menthol-zinc oxide [Calmoseptine] 0.44-20.6 % ointment 1 applic topical 4-6XD PRN (Reason: skin irritation) Qty: 113 2RF carvedilol 3.125 mg tablet 3.125 mg PO BID Qty: 60 11RF Rx Instructions: must administer with a meal/food Jardiance 10 mg tablet 10 mg PO DAILY Qty: 30 11RF atorvastatin 40 mg tablet 20 mg PO QHS Qty: 90 3RF escitalopram oxalate 10 mg tablet 10 mg PO DAILY 90 Days Qty: 90 3RF mirtazapine [Remeron] 15 mg tablet 7.5 mg PO QHS Qty: 90 3RF pantoprazole 40 mg tablet,delayed release (DR/EC) 40 mg PO BID 90 Days Qty: 180 1RF Held prednisone 2.5 mg tablet 5 mg PO DAILY Hold Instructions: Hold it while the patient is on dexamethasone Discontinued guaifenesin 100 mg/5 mL liquid 600 mg PO Q4H PRN (Reason: cough) Referrals / Follow Up: Donna Will MD [Primary Care Provider] - Anthony Singleton DO [Med Staff - Active Staff] - Within 2 Weeks (For COPD exacerbation with chronic hypoxic respiratory) Disposition Disposition (needs filled in before D/C Order can be placed): Home, Self Care
[2023-11-11 08:00] VITALS: BP 108/71; PULSE 98; RESP 20; TEMP 36.6; O2SAT 96
--- NOTE | 2023-11-11 09:37 | PCM.DC.SUM ---
Providers Date of Admission: 11/09/23 Date of Discharge: 11/11/23 Primary Care Physician: Dr. Donna Will MD Consultations 11/10/23 07:25 Consult: Infectious Disease Routine Consulting Provider: Wilberto Villafuerte Reason for Consult: covid 19 with resp failure, AMS EMERGENT Consult: No MD Notified: Yes Date Notified: 11/10/23 Time Notified: 07:25 Method of Notification: Text Reason For Visit: COVID 19, AE COPD, ACUTE RESP FAILURE ON Diagnosis Discharge Diagnosis (1) COVID-19: Status: Acute Code(s): U07.1 - COVID-19 (2) COPD with exacerbation: Status: Chronic Code(s): J44.1 - Chronic obstructive pulmonary disease with (acute) exacerbation (3) Acute hypoxic on chronic hypercapnic respiratory failure: Status: Acute Code(s): J96.01 - Acute respiratory failure with hypoxia; J96.12 - Chronic respiratory failure with hypercapnia (4) Acute cystitis without hematuria: Status: Acute Code(s): N30.00 - Acute cystitis without hematuria (5) Hypokalemia: Status: Acute Code(s): E87.6 - Hypokalemia (6) Acute metabolic encephalopathy: Status: Acute Code(s): G93.41 - Metabolic encephalopathy Plan 73-year-old male was admitted with lethargy, less responsive than baseline, cough and short of breath for 1 day history. Denies chest pain or palpitation or abdominal pain. Found to have pneumonia He has a chronic cough and did not notice any change in frequency or severity but more sputum production and increased shortness of breath more than baseline. He gets more cough while laying down position. Denies aspiration. Found to be COVID-positive in the hospital. 1. Bilateral COVID-19 pneumonia with a history of COVID-19 - Admit to ICU under contact and droplet isolation. Chest x-ray and CTA chest were reviewed. It is mainly suggestive of bronchopneumonia with bilateral bronchial wall thickening, bronchiectasis prominent in lower lobes. No demonstrated acute airspace infiltrate. Continue IV Decadron and add IV Azithromycin with IV Pepcid. Give nebulizers prn for bronchospasm. 11/09: Patient feels much better on baseline oxygen. Downgraded to PCU. ID consulted 11/10: Patient is feeling better on baseline oxygen since more than 24 hours. No acute issues overnight. Urine culture negative. Gram stain pending. ID consult reviewed. On dexamethasone and remdesivir. Had 2 days of IV antibiotics ceftaz and azithromycin. Patient is discharged on levofloxacin for 5 more days, dexamethasone and for 8 more days. Patient has bronchodilator at home. Advised to follow-up in pulmonary clinic in 2 weeks. 2. AE asthma/COPD, exacerbated by COVID-19 pneumonia with history of chronic tobacco abuse - Tobacco Cessation will be strongly encouraged when patient's sensorium clears. Place Nicotine patch to control cravings. 11/09: Shortness of breath, cough and wheezing better. 11/10: Advised to quit his smoking. Patient on prednisone 5 mg daily at baseline. Advised to hold while patient is on dexamethasone. 3. [id number] hypoxic and Hypercapnic Respiratory Failure requiring BiPAP - Wean BiPAP as tolerated. ABG reviewed. pH 7.40, 7.37. pCO2 44-45. Does not have significant hypercarbia. Patient weaned off BiPAP. Home oxygen qualification test. Currently patient on baseline 4 L of oxygen. 4. Abnormal UA with pyuria without hematuria UA shows WBC 10-25 cells, 3+ yeast, 500 LE but no nitrite no urinary culture was ordered at the time of admission. Patient does not have burning micturition. I do not think patient has UTI. But he was on antibiotic for pneumonia and discharged on Levaquin as mentioned above 5. Mild Hypokalemia of 3.4 mmol/L present on admission - Give supplemental KCl and then recheck level in the AM to confirm repletion. 11/09K 3.5 11/10: Hypokalemia resolved. Potassium replacement continued. Magnesium low normal 1.6. Magnesium sulfate ordered. Serum phosphorus normal. 6. Acute infectious metabolic Encephalopathy, multiple etiologies including infectious, metabolic- Check B12, Folate, TSH, UDS and MODESTO to evaluate for potential reversible causes of confusion. Otherwise, continue supportive care as noted above and monitor for improvement. 11/09: Acute encephalopathy from infectious and metabolic encephalopathy resolved. TSH low. 7. Chronic debility; with history of adult failure to thrive adding to the burden of disease outlined in #1 - #6 - PT/OT and Case Management to consult and treat in the AM on-rounds for further recommendations with help appreciated in advance. 8. History of LLE DVT/PE (2021) with subsequent GI bleed and IVC filter placement - Noted. Check d-dimer. 9. Essential hypertension - Continue home regimen plus give prn IV Hydralazine for systolic blood pressure > 160 mmHg. 10. Hyperlipidemia - Resume statin as previous. 11. Overweight; with BMI of 29.7 this admission - Weight loss will also be recommended when sensorium clears. Check TSH. 12. DM-2; of unknown control - ADA diet. FSBS q. AC/HS plus SSI. Patient has insulin supplies of Humalog insulin. Prescription given for Lantus insulin. 13. CAD; s/p numerous stents - Noted. Patient has already had two normal troponins this admission. 14. History of JO ANN - Stable with hemoglobin of 10.9 g/dL present on admission. 15. History of Hodgkin's Lymphoma (1999) - Noted. 16. History of basal cell carcinoma - Noted. 17. History of pilonidal cyst; s/p excision (1967) - Noted for the sake of completeness. 18. RA - Chronic and stable with no evidence of acute flare. 19. OA - Give Tylenol prn. 20. DVT prophylaxis - Lovenox 40 mg sq daily plus SCD's. Discharge medication reconciliation done. Discharge follow-up instructions completed. Discharge process discussed with the patient and all questions were answered to patient's satisfaction. Follow with PCP in 1 to 2 weeks Total time spent, exact 35 minutes on discharge meds reconciliation, examination, coordination of care with nurses and ancillary staff, review of imaging and blood test and discussion with the patient on follow-up instructions. Clinical Impression(s) from Imaging Studies Brain CT 11/09/23 17:46 IMPRESSION: There are no acute findings. Chronic involutional changes of the brain. Electronically Signed: Moo Yanes MD at 19:06 EDT , Chest X-Ray 11/09/23 17:55 IMPRESSION: There are no acute findings. Chest CTA 11/10/23 04:26 IMPRESSION: 1. No evidence for pulmonary embolism, aortic aneurysm, or aortic dissection. 2. Worsened bronchial wall thickening in the lower lobes bilaterally, consistent with an active infectious or inflammatory bronchitis. 3. Chronic bronchiectasis. Chronic atelectasis in the lung bases. No demonstrated acute pulmonary airspace infiltrate. 4. Atherosclerosis. Medications at Discharge Home Medications nitroglycerin 0.4 mg sublingual tablet (Nitrostat) 0.4 mg sublingual Q5M PRN chest pain #30 tabs 09/25/20 finasteride 5 mg tablet 5 mg PO DAILY prostate 08/14/22 tamsulosin 0.4 mg capsule 0.4 mg PO QHS prostate 08/14/22 multivitamin 1 tab PO DAILY vitamin 09/13/22 menthol 0.44 %-zinc oxide 20.6 % topical ointment (Calmoseptine) 1 applic topical 4-6XD PRN skin irritation #113 grams 03/07/23 ferrous sulfate 325 mg (65 mg iron) tablet (FeroSul) 325 mg PO LUNCH 30 days #30 tabs 03/21/23 needle (disp) 32 gauge 32 gauge x 5/16 #100 ea 03/21/23 insulin aspart U-100 100 unit/mL (3 mL) subcutaneous pen See Protocol subcut ACHS #15 mL 03/22/23 furosemide 40 mg tablet (Lasix) 20 mg (1/2 x 40 mg) PO DAILY diuretic #30 tabs 03/27/23 prednisone 2.5 mg tablet 5 mg PO DAILY copd 05/28/23 carvedilol 3.125 mg tablet 3.125 mg PO BID #60 tabs 06/05/23 empagliflozin 10 mg tablet (Jardiance) 10 mg PO DAILY #30 tabs 06/05/23 atorvastatin 40 mg tablet 20 mg (1/2 x 40 mg) PO QHS cholesterol #90 tabs 09/18/23 budesonide 1 mg/2 mL suspension for nebulization 1 mg (2 mL) inhalation Q12H #120 mL 09/19/23 ipratropium 0.5 mg-albuterol 3 mg (2.5 mg base)/3 mL nebulization soln 3 ml inhalation Q4H PRN PRN SOB &/OR WHEEZING #270 mL 09/19/23 escitalopram oxalate 10 mg tablet 10 mg PO DAILY mood 90 days #90 tabs 10/29/23 mirtazapine 15 mg tablet (Remeron) 7.5 mg (1/2 x 15 mg) PO QHS sleep #90 tabs 10/29/23 pantoprazole 40 mg tablet,delayed release 40 mg PO BID reflux 3 months #180 tabs 10/29/23 dexamethasone 6 mg tablet 6 mg PO DAILY 8 days #8 tabs 11/11/23 dextromethorphan-guaifenesin ER 60 mg-1,200 mg tab,extend release,12hr 1 tab PO BID 7 days #14 tabs 11/11/23 insulin glargine 100 unit/mL (3 mL) subcutaneous pen (Lantus Solostar U-100 Insulin) 10 unit (0.1 mL) subcut DAILY 1 month #15 mL 11/11/23 insulin lispro 100 unit/mL subcutaneous pen (Humalog KwikPen (U-100) Insulin) 10 unit (0.1 mL) subcut TIDAC 1 month #15 mL 11/11/23 insulin lispro 100 unit/mL subcutaneous pen (Humalog KwikPen (U-100) Insulin) See Protocol subcut ACHS #0 mL 11/11/23 levofloxacin 500 mg tablet 500 mg PO DAILY 5 days #5 tabs 11/11/23 Physical Exam Narrative Seen and examined Patient is on 4 L of oxygen. He states he is on 4 L at home history of COPD. No fever. No acute issues. Physical exam General: Alert, Oriented x3, Cooperative HEENT: Atraumatic, PERRLA, EOMI, Normocephalic Oral: Oral mucosa moist. No Gingival or Mucosal Lesions/ Ulcerations Neck: Supple, No JVD, Negative Carotid Bruits Chest wall/Lungs: Air entry diminished in bilateral lungs. Mild bilateral expiratory wheezing and rhonchi. Cardiovascular: Sinus rhythm, Normal S1, Normal S2, No M/G/R Abdomen: Bowel Sounds Present, Soft, Non Tender, Non-Distended : No dysuria. No renal angle tenderness. No suprapubic tenderness. Extremities: mild 1+ pitting edema, Capillary Refill Less than 3 Seconds Skin: No rashes, No breakdown Musculoskeletal: No Tenderness to Palpation of Joints or Extremities. ROM full. Neurological: Cranial nerves II-XII grossly intact, DTR 2+/4. No acute focal neurological deficit. Psych/Mental Status: Normal Affect, Appropriate. Weight / BMI Weight Weight: 210 lb 8.663 oz Body Mass Index (BMI) 29.3 ABG / Lab / Microbiology Data 11/10/23 04:40 11/10/23 04:40 Laboratory: Laboratory Results - last 24 hr 11/10/23 04:40: B-Natriuretic Peptide 257.0 H 11/10/23 09:30: Procalcitonin 0.12 H 11/10/23 12:10: POC Glucose 395 H 11/10/23 16:18: POC Glucose 418 H 11/10/23 21:43: POC Glucose 428 H 11/11/23 05:41: POC Glucose 349 H 11/11/23 05:49: Phosphorus 4.7, Magnesium 2.1 Microbiology: Microbiology 11/10/23 09:47 Urine, Random Legionella Antigen - Final 11/10/23 09:47 Urine, Random Streptococcus pneumoniae Antigen (M - Final 11/09/23 17:09 Mucosa - Nose SARS-CoV-2, Influenza & RSV (PCR) - Final SARS-CoV-2 (COVID 19 PCR) D/C Instructions Discharge Diet: Low fat / Low cholesterol, 1800 Calorie Control Diet and 2000 mg Sodium Diet Weight Bearing Status: Weight bearing as tolerated Call your doctor if you observe: Fever of 101 or Higher, Coldness, Increased Pain, Numbness or Tingling, Change in Color, Inability to urinate, Inability to have a bowel movement, Shortness of breath, Dizziness, Fainting spells, Swelling in the ankles, Chest pain, Prolonged hiccupping, Increased palpitations (irregular heartbeat) and Calf discomfort When: IN 2 WEEKS Meaningful Use Info Meaningful Use Meaningful Use Diagnoses (Choose all that apply): None applicable Ischemic Stroke Statin Dosing Therapy Reference: STATIN DOSE THERAPY REFERENCE: * Patients > 75 years receive moderate or high dose statin therapy. * Patients 75 years or YOUNGER should receive HIGH intensity statin dose unless contraindicated. You will be required to document reason for non-treatment if statin daily dose does not meet guidelines. HIGH DOSE STATIN THERAPY DAILY Atorvastatin > than or = to 40 mg Rosuvastatin > than or = to 20 mg Amlodipine + Atorvastatin > than or = to 2.5/40 mg Ezetimibe + Simvastatin 10/80 mg Simvastatin 80mg Discharge Plan Admission Admit Date/Time: 11/09/23 20:06 Primary Reason for Your Visit: Acute exacerbation of COPD Attending Provider: Clive Sharp Primary Care Provider: Donna Will Consulting Providers: Jordan Mendoza; Wilberto Villafuerte Discharge Orders/Prescriptions Prescriptions: New insulin lispro [Humalog KwikPen Insulin] 100 unit/mL Insulin Pen 10 unit subcut TIDAC 30 Days Qty: 15 4RF insulin lispro [Humalog KwikPen Insulin] 100 unit/mL Insulin Pen See Protocol subcut ACHS Qty: 0 0RF Protocol: 1. Sliding Scale Insulin Low Dosing Condition: 150-224 mg/dl = 1 unit Condition: 225-299 mg/dl = 2 units Condition: 300-374 mg/dl = 3 units Condition: 375-449 mg/dl = 4 units Condition: Greater than 449 call physician Protocol Text: Suggested for: - Patients on Total Daily Insulin Dose of 15-27 units - Thin, elderly, renal patients LOW DOSING ALGORITHM dextromethorphan-guaifenesin 60-1,200 mg tablet extended release 12 hr 1 tab PO BID 7 Days Qty: 14 0RF insulin glargine [Lantus Solostar U-100 Insulin] 100 unit/mL (3 mL) insulin pen 10 unit subcut DAILY 30 Days Qty: 15 4RF Rx Instructions: Hold if glucose less than 130 mg/dl levofloxacin 500 mg tablet 500 mg PO DAILY 5 Days Qty: 5 0RF dexamethasone 6 mg tablet 6 mg PO DAILY 8 Days Qty: 8 0RF Continued nitroglycerin [Nitrostat] 0.4 mg tablet, sublingual 0.4 mg SUBLINGUAL Q5M PRN (Reason: chest pain) Qty: 30 0RF Rx Instructions: until response; do not exceed 3 doses per episode multivitamin Tablet 1 tab PO DAILY tamsulosin 0.4 mg capsule 0.4 mg PO QHS finasteride 5 mg tablet 5 mg PO DAILY ipratropium-albuterol 0.5 mg-3 mg(2.5 mg base)/3 mL solution for nebulization 3 ml inhalation Q4H PRN PRN (Reason: SOB &/OR WHEEZING) Qty: 270 11RF budesonide 1 mg/2 mL suspension for nebulization 1 mg inhalation Q12H Qty: 120 11RF furosemide [Lasix] 40 mg tablet 20 mg PO DAILY Qty: 30 0RF ferrous sulfate [FeroSul] 325 mg (65 mg iron) Tablet 325 mg PO LUNCH 30 Days Qty: 30 2RF (DME) needle (disp) 32 gauge 32 gauge x 5/16 needle See Rx Instructions .Route Qty: 100 1RF Rx Instructions: As directed insulin aspart U-100 100 unit/mL (3 mL) insulin pen See Protocol subcut ACHS Qty: 15 3RF Protocol: 5. Sliding Scale Insulin High Dosing Condition: 150-209 mg/dl = 3 units Condition: 210-259 mg/dl = 6 units Condition: 260-324 mg/dl = 9 units Condition: 325-374 mg/dl = 12 units Condition: 375-409 mg/dl = 14 units Condition: 410-449 mg/dl = 16 units Condition: Greater than 449 call physician Protocol Text: - Use for Total Daily Dose of Insulin 81-120 units - Very insulin resistant or septic patients HIGH DOSING ALGORITHM menthol-zinc oxide [Calmoseptine] 0.44-20.6 % ointment 1 applic topical 4-6XD PRN (Reason: skin irritation) Qty: 113 2RF carvedilol 3.125 mg tablet 3.125 mg PO BID Qty: 60 11RF Rx Instructions: must administer with a meal/food Jardiance 10 mg tablet 10 mg PO DAILY Qty: 30 11RF atorvastatin 40 mg tablet 20 mg PO QHS Qty: 90 3RF escitalopram oxalate 10 mg tablet 10 mg PO DAILY 90 Days Qty: 90 3RF mirtazapine [Remeron] 15 mg tablet 7.5 mg PO QHS Qty: 90 3RF pantoprazole 40 mg tablet,delayed release (DR/EC) 40 mg PO BID 90 Days Qty: 180 1RF Held prednisone 2.5 mg tablet 5 mg PO DAILY Hold Instructions: Hold it while the patient is on dexamethasone Discontinued guaifenesin 100 mg/5 mL liquid 600 mg PO Q4H PRN (Reason: cough) Referrals / Follow Up: Anthony Singleton DO [Med Staff - Active Staff] - Within 2 Weeks (For COPD exacerbation with chronic hypoxic respiratory) Donna Will MD [Primary Care Provider] - Disposition Disposition (needs filled in before D/C Order can be placed): Home, Self Care Charges/Coding Visit Charges Inpatient E&M: 63427 Disch Hosp >30min
[2023-11-11] MEDS: Insulin Glargine-YFGN 100 UNIT/ML Pen 12 UNIT SC (09:46)
[2023-11-11] MEDS: Insulin Lispro 100 UNIT/ML INSULN.PEN SC (09:47)
--- NOTE | 2023-11-11 09:47 | CASEMGMT ---
Order for DC placed. TARAH DEL RIO to pt room at this time. Pt is currently maintaining adequate oxygen saturations levels at his baseline O2 orders. Pt states that his GD will be bringing in his portable tank today. This RN CM reviewed how the pt did with PT and OT. At this time, the pt states that he feels safe discharging home today without any HHC or OP Therapy. Pt states that he feels discharging home today with his family. Pt is aware that he is being prescribed with another type of insulin. Pt is aware to pick this up at his pharmacy as well as more pen needles prescribed by Dr. Sharp. Pt states understanding and denies further questions or concerns from this RN QUANG.
[2023-11-11] MEDS: Multivitamins,Therapeutic Tablet 1 TABLET PO (09:48)
[2023-11-11] MEDS: Insulin Lispro 100 UNIT/ML INSULN.PEN 8 UNIT SC (09:48)
[2023-11-11] MEDS: Carvedilol 3.125 MG TABLET PO (09:48)
[2023-11-11] MEDS: Menthol/Lanolin/Calamine/Znox 113 GM Tube 1 APPLIC TOPICAL (09:49)
[2023-11-11] MEDS: dexAMETHasone 10 MG/ML Vial 6 MG IV (09:49)
--- NOTE | 2023-11-11 09:59 | PCM.PN.ID ---
Physical Exam Narrative Feeling better, d/c home today, cough improved, no fever Const alert and no apparent distress General Appearance: cooperative Resp Auscultation: diminished lung sounds Cardio regular rate and regular rhythm GI soft to palpation, non-tender and non-distended Skin no rashes or lesions noted ID ID: Route of nutrition/ use of supplements: [] Nutritional Intake: [] IV Site: [] Ball Catheter: [] Assessment & Plan Assessment/Plan (1) Acute metabolic encephalopathy: (2) Acute hypoxic on chronic hypercapnic respiratory failure: (3) COVID-19: PLAN: Covid (+). Uag neg. Bcx ngtd. On dex/remdesivir, on empiric ceftriaxone and azithro. Plan is for home today on short course abx and dex. Will follow prn
[2023-11-11 10:00] VITALS: O2SAT 84; O2SAT 88; O2SAT 92; O2SAT 98
[2023-11-11 11:36] VITALS: PULSE 85; RESP 18
--- NOTE | 2023-11-12 10:29 | CASEMGMT ---
Addendum entered by Scott House 11/12/23 16:51: Pt's granddaughter, Katy, has arrived @ [facility]. TARAH DEL RIO went down to talk w/her. Reviewed all new medication and insulin changes w/her and questions answered. She was provided w/the printed discharge medications and instructions. She voiced understanding and much appreciation for reviewing w/this w/her. She also picked up the pen needles and cefdinir at this time. She denies having further questions. Addendum entered by Scott House 11/12/23 15:49: 1510: Per Dr Sharp, he is unable to send SS parameters to [facility], and therefore has sent them to [facility], in addition to the insulin pen needles, and Rx for Aspart 10 U TID. TARAH DEL RIO placed call to [facility] and also had Rx for cefdinir transferred to [facility]. 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 Bob was made aware pt will not be picking up Aspart pens, but he will need the new SS paramaters printed, in addition to the new orders for aspart 10 u TID w/parameters to hold. TARAH DEL RIO placed call to pt. He was made aware of above. Reviewed the insulin orders in detail with pt, he voices understanding, and was able to verbally state back correct insulin orders and good understanding. He also states he just re-checked his BS and it is now 251. TARAH DEL RIO instructed him to follow new SS orders @ dinner, as per new parameters and is aware to hold if BS is under 130. He also is aware to check BS @ HS before administering Semglee. Pt states his granddaughter, Katy, will be picking up his Rx's from [facility] around 4:10 PM today. Bob in the pharmacy is aware and to call this TARAH DEL RIO when she comes in for TARAH DEL RIO to meet w/her and answer any questions she may have. Pt denies having further questions/needs. Addendum entered by Scott House 11/12/23 15:09: TARAH DEL RIO spoke w/Dr Sharp for clarification on insulin aspart and insulin lispro and also re: Herve. Dr Sharp states will enter new Rx's @ [facility]. TARAH DEL RIO reviewed new orders that were e-scribed to [facility]: Levaquin cancelled and new order for cefdinir has been placed. Insulin lispro has been cancelled (both SS and scheduled) New aspart sliding scale has been ordered. Aspart 10 U TID ordered w/instructions to hold if BS <130. Insulin pen needles have been ordered. TARAH DEL RIO spoke w/Shawn @ [facility], who states has received the new orders and will work on getting them ready. 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 Call placed to pt. 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 He was also made aware the Levaquin has been stopped and he is not to take it. He voices understanding. He states his BS earlier was 450 and he administered 16 units aspart at that time. (SS at that time was for 410-449 to give 16 units and to call MD if BS >450). TARAH DEL RIO inquired if he called his PCP. He states he did not, that he just administered the 16 units earlier and was getting ready to check it again. He states he will call this RN CM back with the results. TARAH DEL RIO also reviewed TARAH DEL RIO discharge follow-up questions. Pt states he has scheduled an appt with his PCP/Dr Will in 2 weeks and he is aware he is to schedule an appt with Dr Singleton in 2 weeks. 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 Discussed CCN w/pt and he is agreeable to referral. Referral placed. Original Note: TARAH DEL RIO NOTE: Fax received re: YANELIS needed for Insulin Lispro that was prescribed for pt yesterday @ discharge for 10 U TID before meals and also insulin lispro SS was ordered. Noted pt also on insulin aspart SS prior to admission, which was on pt's med list for [facility], and was continued @ dc. TARAH DEL RIO spoke w/pt who states he was only taking that BID @ home per SS. He states he has several aspart pens @ home, but is almost out of pen needles (has only 12 remaining) and states he is out of refills for the needles. He states, if possible, he would prefer to stay on the aspart, instead of switching to a new insulin/lispro, since he has several pens of aspart still @ home. Pt also sent home w/Rx for insulin Lantus. Per pharmacist @ [facility], pt provided a 90-day supply of insulin Semglee instead, as a replacement for Lantus, as the Semglee is preferred by pt's insurance. Pt also states he is allergic to Levaquin and states [facility] was to be calling Dr Sharp re: this as well. TARAH DEL RIO inquired what reaction he had to Levaquin in the past. He states he got sick and further clarified became very nauseous on it (no emesis). Noted Levaquin is listed in pt's chart on the allergy/adv rxn list. 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 He states there is a note stating they did try and contact Dr Sharp last evening, were unable to reach him, and plan was to try and contact him again today. Shawn informed this TARAH DEL RIO would discuss this w/Dr Sharp today as well. Message sent to Dr Sharp requesting a return call. (For clarification on the short-acting insulin (aspart vs lispro) and Levaquin). Awaiting response. Lars VALENTINE RN, CM
== END 2023-11-11 12:21 | disposition home or self-care (01) | DRG 177 ==
LOC: ED 20:10 → ICU 20:48
PROVIDERS: Internal Medicine Infectious Disease; Admitting Provider Internal Medicine; Emergency Provider Emergency Medicine; PCP Internal Medicine; Visit Provider Internal Medicine
DX: U07.1 COVID-19 (principal); J96.21 Acute and chronic respiratory failure with hypoxia; J12.82 Pneumonia due to coronavirus disease 2019; G93.41 Metabolic encephalopathy; J96.22 Acute and chronic respiratory failure with hypercapnia; J44.0 Chronic obstructive pulmonary disease with (acute) lower respiratory infection; J44.1 Chronic obstructive pulmonary disease with (acute) exacerbation; E11.9 Type 2 diabetes mellitus without complications; M06.9 Rheumatoid arthritis, unspecified; I10 Essential (primary) hypertension; E78.00 Pure hypercholesterolemia, unspecified; I25.10 Atherosclerotic heart disease of native coronary artery without angina pectoris; E87.6 Hypokalemia; E78.5 Hyperlipidemia, unspecified; R82.81 Pyuria; R62.7 Adult failure to thrive; R53.81 Other malaise; E66.3 Overweight; Z68.29 Body mass index [BMI] 29.0-29.9, adult; Z99.81 Dependence on supplemental oxygen; Z79.51 Long term (current) use of inhaled steroids; Z79.84 Long term (current) use of oral hypoglycemic drugs; Z86.16 Personal history of COVID-19; Z86.718 Personal history of other venous thrombosis and embolism; Z87.891 Personal history of nicotine dependence; Z95.5 Presence of coronary angioplasty implant and graft
CPT/HCPCS: 36600; 70450; 71045; 71275; 80048; 80053; 80307; 81001; 82077; 82607; 82746; 82803; 82962; 83036; 83605; 83735; 83880; 84100; 84145; 84443; 84484; 85025; 85379; 87040; 87070; 87077; 87184; 87186; 87205; 87449; 87631; 93005; 94002; 94003; 94640; 94762; 97162; 97166; 99285; J7030; J7050; Q9967; A4216; J0248; J3490

== ENCOUNTER 2023-11-14 17:30 | Inpatient (IN) | payer MEDICARE, SELFPAY ==
[2023-11-14] VITALS (12 sets, daily range): BP systolic 112–139; BP diastolic 51–62; PULSE 78–91; RESP 16–34; TEMP 37.1–38.4; O2SAT 94–98; BMI 30.1; BMI 28.9
--- NOTE | 2023-11-14 17:43 | EKG12_ITS ---
Test Reason : SOB Blood Pressure : / mmHG Vent. Rate : 083 BPM Atrial Rate : 300 BPM P-R Int : 166 ms QRS Dur : 086 ms QT Int : 340 ms P-R-T Axes : 075 048 068 degrees QTc Int : 399 ms Normal sinus rhythm Confirmed by Mekhi Garcia ([id number]), editorial writer APOLONIA GUERRERO ([id number]) on 11/17/2023 10:48:53 AM Referred By: MEAGAN/LIA Confirmed By:Mekhi Garcia
--- NOTE | 2023-11-14 17:47 | ED.VIS.DYS ---
HPI History of Present Illness Chief Complaint: Shortness of Breath Informant: patient and EMS Narrative Narrative: Patient arrives by EMS, very poor historian Limited information available but dyspnea, he nods yes several times when asked if he is in pain but then he refuses to answer us and tell us where he is hurting. When sitting him up, he is yelling at staff that I am cold, I am cold. Apparently he is on oxygen at home and was recently admitted for COVID and discharged on oxygen, according to EMS they had him on a 6 L nasal cannula satting only at 87%. Up in the 90s with a nonrebreather. Family arrived later and provided more history. He was lethargic all day and while family member was at work, home health nurse who comes to check on his significant other who is on hospice and was doing better than he was, called the granddaughter because he was less responsive and had his head on the table. She came home from work 15 minutes later and found him responsive but lethargic with his head on the table saying he was dizzy. She checked his pulse ox and it was 85% on 4 L which is his baseline oxygen and what he was sent home with when discharged with COVID several days ago, she turned it up to 6 and called EMS it went up to 91% but for EMS it was at 87%. Granddaughter states that when he had COVID in the past, he did poorly with it, and still has brain fog issues from COVID in the past. [facility] Medical History FTT (failure to thrive) in adult Former smoker On home oxygen therapy Bleeding tendency Ulcer High cholesterol History of stress test HTN (hypertension) Tobacco abuse History of pulmonary embolus (PE) (04/30/21) Essential hypertension Type 2 diabetes mellitus DVT (deep venous thrombosis) (05/01/21) Rhinovirus Acute respiratory failure with hypoxia Physical debility COVID-19 in immunocompromised patient Nicotine dependence, cigarettes, uncomplicated Diabetes Arthritis Cancer COPD (chronic obstructive pulmonary disease) History of basal cell carcinoma Atherosclerosis of coronary artery of [place] heart without angina pectoris Pneumonia Non-Hodgkin lymphoma History of pilonidal cyst Allergic rhinitis 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 complications Gastritis Colon polyp Obesity Asthma Chronic bronchitis Positive colorectal cancer screening using Cologuard test RA (rheumatoid arthritis) Home Medications ?Medication ?Instructions ?Recorded ?Last Taken ?Type nitroglycerin 0.4 mg sublingual 0.4 mg sublingual Q5M PRN chest 09/25/20 Unknown Rx tablet (Nitrostat) pain #30 tabs finasteride 5 mg tablet 5 mg PO DAILY prostate 08/14/22 03/16/23 History tamsulosin 0.4 mg capsule 0.4 mg PO QHS prostate 08/14/22 03/15/23 History multivitamin 1 tab PO DAILY vitamin 09/13/22 03/16/23 History menthol 0.44 %-zinc oxide 20.6 % 1 applic topical 4-6XD PRN skin 03/07/23 Unknown Rx topical ointment (Calmoseptine) irritation #113 grams ferrous sulfate 325 mg (65 mg 325 mg PO LUNCH 30 days #30 tabs 03/21/23 Unknown Rx iron) tablet (FeroSul) furosemide 40 mg tablet (Lasix) 20 mg (1/2 x 40 mg) PO DAILY 03/27/23 Unknown Rx diuretic #30 tabs prednisone 2.5 mg tablet 5 mg PO DAILY copd 05/28/23 Unknown History carvedilol 3.125 mg tablet 3.125 mg PO BID #60 tabs 06/05/23 Unknown Rx atorvastatin 40 mg tablet 20 mg (1/2 x 40 mg) PO QHS 09/18/23 Unknown Rx cholesterol #90 tabs budesonide 1 mg/2 mL suspension 1 mg (2 mL) inhalation Q12H #120 mL 09/19/23 Unknown Rx for nebulization ipratropium 0.5 mg-albuterol 3 mg 3 ml inhalation Q4H PRN PRN SOB 09/19/23 Unknown Rx (2.5 mg base)/3 mL nebulization &/OR WHEEZING #270 mL soln escitalopram oxalate 10 mg tablet 10 mg PO DAILY mood 90 days #90 10/29/23 Unknown Rx tabs mirtazapine 15 mg tablet (Remeron) 7.5 mg (1/2 x 15 mg) PO QHS sleep 10/29/23 Unknown Rx #90 tabs pantoprazole 40 mg tablet,delayed 40 mg PO BID reflux 3 months #180 10/29/23 Unknown Rx release tabs dexamethasone 6 mg tablet 6 mg PO DAILY 8 days #8 tabs 11/11/23 Unknown Rx dextromethorphan-guaifenesin ER 60 1 tab PO BID 7 days #14 tabs 11/11/23 Unknown Rx mg-1,200 mg tab,extend release,12hr empagliflozin 10 mg tablet 10 mg PO DAILY #90 tabs 11/11/23 Unknown Rx (Jardiance) insulin glargine 100 unit/mL (3 10 unit (0.1 mL) subcut DAILY 1 11/11/23 Unknown Rx mL) subcutaneous pen (Lantus month #15 mL Solostar U-100 Insulin) cefdinir 300 mg capsule 300 mg PO BID 5 days #10 caps 11/12/23 Unknown Rx insulin aspart U-100 100 unit/mL 10 unit (0.1 mL) subcut TID 1 11/12/23 Unknown Rx (3 mL) subcutaneous pen month #9 mL insulin aspart U-100 100 unit/mL See Protocol subcut ACHS 1 month 11/12/23 Unknown Rx (3 mL) subcutaneous pen #15 mL needle (disp) 32 gauge 32 gauge x #100 ea 11/12/23 Unknown Rx 5/16 (Easy Touch Hypodermic Needle) pen needle, diabetic 32 gauge x #100 ea 11/12/23 Unknown Rx 5/32 Allergy/AdvReac Type Severity Reaction Status Date / Time levofloxacin (From Levaquin) AdvReac Intermediate diarrhea, Verified 11/09/23 16:41 dizziness, GI upset, weakness Family History Father Arthritis Bleeding disorder Hypertension Kidney disease Cancer Skin Anemia blood clots Emphysema lung Mother Colon cancer Cancer Lung Cancer Diabetes Brother Thyroid disorder Surgical History History of embolic filter insertion History of heart artery stent Status post cardiac surgery H/O cardiac catheterization Presence of IVC filter (04/2021) History of coronary artery stent placement (10/22/13) History of thymectomy Hx of lymph node excision History of excision of pilonidal cyst Social History household members: spouse Smoking Status: Former smoker Tobacco: How many years used: 55 second hand exposure: Yes alcohol intake: current alcohol intake frequency: holidays/special occasions only substance use type: does not use caffeine: Yes Type: coffee Number of servings: 3 what type of physical activity do you participate in: none frequency: does not exercise seatbelt use: always ROS ROS ED Review of Systems ROS Unobtainable: due to mental status Respiratory/Chest Respiratory/Chest: Reports cough and dyspnea EXAM Physical Exam Const Vital Signs: 11/14/23 17:31 11/14/23 17:36 11/14/23 17:40 Temperature 99.2 F H Temperature Source Oral Pulse Rate 86 86 Respiratory Rate 30 H 27 H Respiratory Effort Respiratory Depth Blood Pressure 139/59 H Blood Pressure Mean 85 Pulse Ox 94 96 98 Oxygen Delivery Method Non-Rebreather Nasal Cannula Nasal Cannula Oxygen Flow Rate (L/min) 10 6 6 11/14/23 17:43 11/14/23 17:53 11/14/23 18:03 Temperature Temperature Source Pulse Rate Respiratory Rate Respiratory Effort Labored Respiratory Depth Shallow Blood Pressure Blood Pressure Mean Pulse Ox 97 95 Oxygen Delivery Method Nasal Cannula Nasal Cannula Nasal Cannula Oxygen Flow Rate (L/min) 4 4 5 11/14/23 18:03 11/14/23 18:23 11/14/23 19:00 Temperature 98.7 F Temperature Source Temporal Pulse Rate 85 82 78 Respiratory Rate 34 H 28 H 32 H Respiratory Effort Respiratory Depth Blood Pressure 135/56 H 124/62 H Blood Pressure Mean 82 82 Pulse Ox 94 98 Oxygen Delivery Method Nasal Cannula Nasal Cannula Oxygen Flow Rate (L/min) 4 4 Positive well nourished and well developed Constitutional Narrative: Somnolent alerts to voice, follows some commands but mostly not due to encephalopathy/confusion or refusal General Appearance ED: well developed and NAD HEENT Reports moist mucous membranes normocephalic and atraumatic Eyes PERRL and EOMs intact bilaterally Neck full ROM and supple Resp normal respiratory effort Resp Narrative: Shallow breathing but in no distress. Some rhonchi at the bases that is high-pitched consistent with atelectasis symmetric bilaterally. Otherwise clear. Cardio regular rate and regular rhythm Cardio Narrative: Faint heart sounds GI non-tender and non-distended Auscultation: normoactive bowel sounds Palpation: soft Back/Spine no CVA tenderness General Back: other FROM Extremity normal to inspection General Extremety ED: Yes edema; Negative for pulses abnormal or tenderness General Extremity: edema bilateral lower extremity Details: moderate (Symmetric without cellulitis or tenderness); Negative for pulses abnormal Neuro CN's II-XII intact bilaterally and no sensory deficits noted Neuro Narrative: Moving all EXTR 4 extremities equally Aashish Coma Scale: document GCS findings To Voice Obeys Commands Confused 13 Sensorium / Orientation: awake, alert and confused Motor Exam: general weakness Skin no rashes or lesions noted and no wounds MDM MDM MDM Narrative Medical decision making narrative: At this time I reviewed his labs, he is a leukocytosis but has been on dexamethasone recently, has some mild LUIS, and his troponin is 300 in context of nonspecific EKG without any acute injury pattern or significant change. Recent echocardiogram showed an ejection fraction of 25%, he does not sound clinically exceptionally wet, but 1 view chest x-ray my interpretation shows no overt pulmonary edema or acute change compared with his prior x-ray, radiology was in agreement. From looking at his recent discharge summary, he was admitted for 2 days, he is currently on day #6 of COVID since the onset of symptoms, was treated with IV ceftaz and azithromycin as well as dexamethasone and remdesivir while he was here and discharged home on Levaquin for 5 days and dexamethasone for 8 days which she has been compliant with. I did an ABG to evaluate his pCO2, his pH is normal and his pCO2 appears to be at or near baseline. Therefore the most likely reason for the elevated troponin is probably some myocardial ischemia due to hypoxemia. This will need to be trended, plan is for admission. I am not putting an emergent different antibiotic since he is currently on them and on 24-hour dosing, and has no new significant consolidation on the x-ray. Additionally considered PE but he just had a CTA of the chest that showed no pulmonary embolus couple days ago and I do not think that needs to be emergently repeated right now, especially since he has no acute tachycardia. At this time we have him on a 6 L nasal cannula and he is satting 97-98% and doing okay clinically, I do not think he needs to be admitted to the ICU at this time. History & Record Review Additional record(s) reviewed:: Prior inpatient record Lab Data Attestation: I reviewed the patient's lab results. Labs: Laboratory Results - last 24 hr 11/14/23 17:48 WBC 15.4 H RBC 3.34 L Hgb 10.7 L Hct 33.0 L MCV 98.8 H MCH 32.0 MCHC 32.4 RDW Std Deviation 56.8 H RDW Coeff of Rafael 15.8 H Plt Count TNP MPV 11.2 Immature Gran % (Auto) 4.700 H Neut % (Auto) 79.2 H Lymph % (Auto) 7.5 L Haakon % (Auto) 7.1 Eos % (Auto) 1.0 Baso % (Auto) 0.5 Absolute Neuts (auto) 12.2 H Absolute Lymphs (auto) 1.16 Nucleated RBC % 0.5 Differential Comment SCANNED Toxic Granulation 1+ Platelet Estimate ADEQUATE Plt Morphology Comment LARGE Sodium 138 Potassium 4.6 Chloride 109 H Carbon Dioxide 25.0 Anion Gap 4 L BUN 48 H Creatinine 1.41 H Estim Creat Clear Calc 54.83 Est GFR (MDRD) Af Amer 63 Est GFR (MDRD) Non-Af 52 L BUN/Creatinine Ratio 34.0 H Glucose 179 H Calcium 9.2 Troponin I High Sens 300 H* ABG Data ABG results: ABG 11/14/23 17:53 Specimen Type ART Sample Site R Radial pH 7.41 Bicarbonate Actual 28.7 H Total CO2 30 Base Excess 4 H O2 Saturation 88 L O2 % 4.0 ABG pCO2 45.8 H ABG pO2 55 L Thompson Test Positive O2 Delivery Device Cannula Vent Mode Not entered Radiography Diagnostic Testing: Clinical Impression(s) from Imaging Studies Chest X-Ray 11/14/23 17:55 IMPRESSION: Bibasilar interstitial thickening more pronounced on the right which may be consistent with inflammatory disease. Electronically Signed: Calderon Quintanilla MD at 18:21 EDT , Rhythm Strip Rhythm Strip: Sinus Rhythm Rate: 80 Ectopy: None EKG Initial EKG: Attestation: I personally reviewed and interpreted this EKG as follows: Interpretation: Sinus Rhythm and No Acute Injury Pattern Management Discussion w/another healthcare provider: Hospitalist Discharge Plan Dx/Rx/DC Orders Clinical Impression: Hypoxemia, Chronic kidney disease (CKD), stage III (moderate), LUIS (acute kidney injury), Elevated troponin I level, COPD with acute exacerbation, Lethargic, COVID-19 Disposition Disposition: [facility]
--- NOTE | 2023-11-14 17:55 | RAD_ITS ---
STUDY: X-RAY CHEST REASON FOR EXAM: Male, 73 years old. sob TECHNIQUE: AP portable COMPARISON: November 09, 2023. FINDINGS: Mild nonspecific interstitial thickening in the lower lobes more pronounced on the right possibly due to inflammatory changes which has increased slightly since prior exam. There is no demonstrated pleural abnormality. Postop change status post median sternotomy Normal size heart. Normal mediastinum and sho. Normal visualized pulmonary arteries. Normal visualized aortic arch and descending thoracic aorta. Dorsal spine demonstrates scoliosis and degenerative change. Normal visualized ribs, clavicles, and shoulders. There is no demonstrated abnormality of the visualized soft tissue structures of the upper abdomen. RAD/Chest 1 View (Portable) IMPRESSION: Bibasilar interstitial thickening more pronounced on the right which may be consistent with inflammatory disease. Electronically Signed: Calderon Quintanilla MD at 18:21 EDT ,
[2023-11-14 17:58] LABS: Absolute Lymphocyte Count 1.16 X10^3/uL (0.83-4.51); Absolute Neutrophil Count 12.2 X10^3/uL (2.0-7.7); Basophil# 0.07 X10^3/uL; Basophil% 0.5 % (0-1); Eosinophil# 0.16 X10^3/uL; Hemoglobin 10.7 g/dL (13.0-16.5); Lymphocyte # 1.16 X10^3/ul (0.83-4.51); Lymphocyte % 7.5 % (19-41); Mean Corp Hgb Conc 32.4 g/dL (32-36); Mean Corpuscular Volume 98.8 fL (80-94); Mean Platelet Vol. 11.2 fl (6.2-12.0); Monocyte# 1.09 X10^3/uL; Monocyte% 7.1 % (0-10); NRBC Flagged by Analyzer 0.5 % (0-5); Neutrophil # 12.21 X10^3/uL (2.7-7.7); Neutrophil % 79.2 % (47-70); POSITIVE COUNT YES; RBC Distribution Width CV 15.8 % (11.6-14.6); RBC Distribution Width SD 56.8 fl (35.1-43.9); Red Blood Count 3.34 M/mm3 (4.6-6.2); White Blood Count 15.4 K/mm3 (4.4-11.0)
[2023-11-14 17:58] LABS: Allen Test Positive; Base Excess 4 mmol/L (-2 to +2); Bicarbonate 28.7 mmol/L (22-26); Blood Gas Specimen Type ART; Mode Not entered; O2 Delivery Device Cannula; PO2 55 mmHG (75-100); SITE R Radial; SO2 88 % (95-99); Total Carbon Dioxide 30 mmol/L; pCO2 45.8 mmHg (35-45); pH 7.41 (7.35-7.45)
[2023-11-14] MEDS: Ipratropium/Albuterol Sulfate 3 ML AMPUL.NEB INHALATION (18:02)
--- OUTSIDE RECORDS SUMMARY | 2023-11-14 18:06 | XMS RPT_ITS | CCD ---
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 B: Pt was discharged today from [facility]. A: states [facility] insurance will not cover pt's insulin that was prescribed at discharge. wants to know why, and also what he can take instead. R: Advised that she has reached the [facility] Nurse Advice Line, and to please call the other number on her card regarding prescriptions. Caller ended call. Reason for Disposition [1] Follow-up call to recent contact AND [2] information only call, no triage required Protocols used: Information Only Call - No [id number] CNOVSPon 01-12-2019 [facility] Visit (SP) Office ([place]) JAYDON ALONZO ([id number]) 1950 M Date Time Provider Department 01/12/19 2:00 PM JAYDON OBRIEN During your visit today, we recorded the following information about you: Temperature Pulse Blood pressure Weight 97.2 degrees 71/minute 158/72 112.3 kg Height 1.753 m Jaydon Obrien DO 01/12/2019 3:15 PM Signed Consult requested by Dr. De Jesus for my opinion recommendations regarding patient with iron deficiency anemia. The impression and plan will be communicated by way of the shared electronic record. 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 Patient initiated workup for iron deficiency in July 2017. At that time he had a ferritin level noted to be 16 ng per mL. Patient was referred to Dr. Wilberto Huerta in August 2017 for EGD/colonoscopy based on positive Cologuard screening examination. On EGD, there was a small hiatal hernia noted. There was no gross evidence of reflux. In the stomach mild irritation with some erythema suggestive of recent bleeding was noted in the prepyloric area. The first and second portions of the duodenum were unremarkable. On retroflexion in the stomach, the cardia was unremarkable. The greater and lesser curvatures appear normal. The scope was advanced into the antrum were mild erythema was noted. Biopsies were obtained. Digital rectal exam demonstrated at least grade 2 hemorrhoids. Prostate was enlarged with no masslike lesions. Scope was advanced to the ileocecal valve. As it was withdrawn, there appeared to be a very small 4 mm polyp lesion in the ascending colon. In the descending colon there was a 7 mm sessile polyp-like structure. Biopsies were attained. Pathology: A. Antral biopsy: Mild gastritis. B. Ascending colon, possible polyp, biopsy: Fragments of colonic mucosa, no pathologic diagnosis. C. Descending colon polyp, biopsy: Hyperplastic polyp. H. pylori negative. Based on the findings, patient was advised to start famotidine. He continues on that medication. Ferritin was noted to be 115 ng per mL on 01/21/2018. He had been off iron for some time but it was restarted several weeks ago. Ferritin level 12/25/2018 was 17 ng/mL. Had been on iron about a week. Stools are darker now back on iron. No overt signs of GI bleeding however. 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 No h/o hemoptysis. No wheeze. No dyspnea at rest. Occasional LANDAVERDE. PMH, medications and allergies personally reviewed by me today. Any changes documented in appropriate section. ROS: Constitutional: Denies episodes of fever and night sweats. Normal appetite. Neuro: Denies TORRE, vertigo, dizziness and imbalance. Denies symptoms of neuropathy. HEENT: No recent change in voice, vision or hearing. Resp: See above. CVS: Denies exertional chest pain, PND and orthopnea. Chronic right leg lymphedema secondary to inguinal lymph node dissection in 1999 for NHL. Has home lymphedema pump. GI: Denies dysgeusia. Denies symptoms of stomatitis. Denies dysphagia and odynophagia. Denies reflux, n/v, change in bowel habits and abdominal pain. : Denies dysuria or gross hematuria. No symptoms of bladder outlet obstruction. Endo: Denies hot flashes. Denies polyuria and polydipsia. Denies heat and cold intolerance. Musculoskeletal: Chronic pain from RA hands--still uses low dose prednisone every other day. Derm: Denies rash. Denies jaundice and diffuse pruritis. Heme: Denies unusual bleeding and unexplained bruising. Psych: Normal mood. PHYSICAL EXAM: Vitals: Blood pressure 158/72, pulse 71, temperature 36.2 ?C (97.2 ?F), temperature source Temporal, height 175.3 cm (5' 9 ), weight 112.3 kg (247 lb 8 oz). Pale-appearing and in no acute distress. EYES: Sclerae are anicteric bilaterally. ENT: Oral mucosa is unremarkable. There is no sign of thrush or mucositis. NECK: Supple. No enlargement of thyroid. LYMPHATIC: There is no palpable cervical, supraclavicular, axillary or inguinal adenopathy. RESPIRATORY: Inspiratory breath sounds are of normal intensity in all luu. No rales, wheezes or rhonchi. CARDIOVASCULAR: Rhythm is regular. Normal intensity S1/S2. ABDOMEN: The abdomen is nondistended. No organomegaly. No tenderness. Extremities: Swelling/edema right leg. SKIN: No jaundice or rash. 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 No focal motor weakness. 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 He's had biopsy-proven gastritis with endoscopic appearance of blood loss about a year ago. He's been on H2 avinash therapy since then. Currently has no GI symptoms. Evidently he had good iron absorption in the past as evidenced by the normal ferritin in December 2017 but more recently has developed significant iron deficiency again. He was recently started back on oral iron therapy. -Patient likely has iron deficiency due to possible ongoing small GI blood loss and poor oral iron absorption, i.e. chronic H2 avinash therapy. Plan: -Recheck CBC and iron studies today. -If iron saturation and/or ferritin not increasing appropriately then parenteral iron. Discussed above plan with the patient and answered all his questions to his satisfaction. Jaydon Obrien DO Referring Provider: MARIO DE JESUS [[id number]] Allergies As of Date: 01/12/2019 (No Known Allergies) Date Reviewed: 01/12/2019 Reviewed by: Batool Torres - Fully Assessed Reason for Visit: New Patient Evaluation [154] Primary Visit Diagnosis:Iron deficiency anemia due to chronic blood loss [D50.0] Other Visit Diagnosis:Iron malabsorption [K90.9] Order(s):LEYDA CBC [SQWCBC] Order #: [id number] FUTURE Follow-up and Disposition History Recorded Prescriptions as of 01/12/2019 Sig: MONTELUKAST 10 MG TABLET Take 10 mg by mouth once martha* PREDNISONE ORAL Take 1.25 mg by mouth every o* FAMOTIDINE 20 MG TABLET Take 20 mg by mouth once martha* LANTUS SOLOSTAR U-100 INSULIN* Inject 28 Units subcutaneousl* IRON ORAL Take 1 tablet by mouth twice * FLUTICASONE PROPIONATE-SALMET* Inhale 2 Puffs as instructed * RITUXAN INTRAVENOUS Inject intravenously. Twice y* NITROSTAT 0.4 MG SUBLINGUAL T* Dissolve 0.4 mg under the ton* METFORMIN 500 MG TABLET Take two tablets by mouth twi* ATORVASTATIN 40 MG TABLET once daily. GLIMEPIRIDE 4 MG TABLET twice daily. LOSARTAN 25 MG TABLET once daily. METOPROLOL TARTRATE 25 MG TAB* twice daily. ASPIRIN 81 MG TABLET,DELAYED * Take 81 mg by mouth once martha* MULTI-VITAMIN ORAL Take 1 tablet by mouth once d* MUPIROCIN 2 % TOPICAL OINTMENT Apply 1 application to affect* Patient not taking: Reported on 01/12/2019 OCUVITE ORAL Take by mouth once daily. CLOPIDOGREL 75 MG TABLET once daily. Problem List As Of Date 01/12/2019 Noted Resolved Neoplasm of uncertain behavior of skin of face *09/12/2014 Cellulitis of face [L03.211] 10/18/2014 Iron deficiency anemia due to chronic blood los*01/12/2019 Iron malabsorption [K90.9] 01/12/2019 Encounter Status:Closed by JAYDON OBRIEN DO on 01/12/19 Normal [facility] Ferritinon 01-12-2019 Ferritin [Mass/Vol] Test sent to [facility]. Normal 30.3-565.7 [facility] Comment on above: Result Comment: Acco unt Credited Iron and TIBCon 01-12-2019 Iron [Mass/Vol] Test sent to [facility]. Normal 41-186 [facility] Comment on above: Result Comment: Acco unt Credited TIBC Test sent to [facility]. Normal 232-386 [facility] Comment on above: Result Comment: Acco unt Credited Transferrin Saturatn Test sent to [facility]. Normal 15-57 [facility] Comment on above: Result Comment: Acco unt Credited PROGRESSon 01-12-2019 PROGRESS HNO ID: [id number] Author: Jaydon Obrien Service: ? Author Type: Physician Type: Progress Notes Filed: 01/12/2019 3:15 PM Note Text: Consult requested by Dr. De Jesus for my opinion recommendations regarding patient with iron deficiency anemia. The impression and plan will be communicated by way of the shared electronic record. 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 Patient initiated workup for iron deficiency in July 2017. At that time he had a ferritin level noted to be 16 ng per mL. Patient was referred to Dr. Wilberto Huerta in August 2017 for EGD/colonoscopy based on positive Cologuard screening examination. On EGD, there was a small hiatal hernia noted. There was no gross evidence of reflux. In the stomach mild irritation with some erythema suggestive of recent bleeding was noted in the prepyloric area. The first and second portions of the duodenum were unremarkable. On retroflexion in the stomach, the cardia was unremarkable. The greater and lesser curvatures appear normal. The scope was advanced into the antrum were mild erythema was noted. Biopsies were obtained. Digital rectal exam demonstrated at least grade 2 hemorrhoids. Prostate was enlarged with no masslike lesions. Scope was advanced to the ileocecal valve. As it was withdrawn, there appeared to be a very small 4 mm polyp lesion in the ascending colon. In the descending colon there was a 7 mm sessile polyp-like structure. Biopsies were attained. Pathology: A. Antral biopsy: Mild gastritis. B. Ascending colon, possible polyp, biopsy: Fragments of colonic mucosa, no pathologic diagnosis. C. Descending colon polyp, biopsy: Hyperplastic polyp. H. pylori negative. Based on the findings, patient was advised to start famotidine. He continues on that medication. Ferritin was noted to be 115 ng per mL on 01/21/2018. He had been off iron for some time but it was restarted several weeks ago. Ferritin level 12/25/2018 was 17 ng/mL. Had been on iron about a week. Stools are darker now back on iron. No overt signs of GI bleeding however. 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 No h/o hemoptysis. No wheeze. No dyspnea at rest. Occasional LANDAVERDE. PMH, medications and allergies personally reviewed by me today. Any changes documented in appropriate section. ROS: Constitutional: Denies episodes of fever and night sweats. Normal appetite. Neuro: Denies TORRE, vertigo, dizziness and imbalance. Denies symptoms of neuropathy. HEENT: No recent change in voice, vision or hearing. Resp: See above. CVS: Denies exertional chest pain, PND and orthopnea. Chronic right leg lymphedema secondary to inguinal lymph node dissection in 2000 for NHL. Has home lymphedema pump. GI: Denies dysgeusia. Denies symptoms of stomatitis. Denies dysphagia and odynophagia. Denies reflux, n/v, change in bowel habits and abdominal pain. : Denies dysuria or gross hematuria. No symptoms of bladder outlet obstruction. Endo: Denies hot flashes. Denies polyuria and polydipsia. Denies heat and cold intolerance. Musculoskeletal: Chronic pain from RA hands--still uses low dose prednisone every other day. Derm: Denies rash. Denies jaundice and diffuse pruritis. Heme: Denies unusual bleeding and unexplained bruising. Psych: Normal mood. PHYSICAL EXAM: Vitals: Blood pressure 158/72, pulse 71, temperature 36.2 ?C (97.2 ?F), temperature source Temporal, height 175.3 cm (5' 9 ), weight 112.3 kg (247 lb 8 oz). Pale-appearing and in no acute distress. EYES: Sclerae are anicteric bilaterally. ENT: Oral mucosa is unremarkable. There is no sign of thrush or mucositis. NECK: Supple. No enlargement of thyroid. LYMPHATIC: There is no palpable cervical, supraclavicular, axillary or inguinal adenopathy. RESPIRATORY: Inspiratory breath sounds are of normal intensity in all luu. No rales, wheezes or rhonchi. CARDIOVASCULAR: Rhythm is regular. Normal intensity S1/S2. ABDOMEN: The abdomen is nondistended. No organomegaly. No tenderness. Extremities: Swelling/edema right leg. SKIN: No jaundice or rash. 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 No focal motor weakness. 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 He's had biopsy-proven gastritis with endoscopic appearance of blood loss about a year ago. He's been on H2 avinash therapy since then. Currently has no GI symptoms. Evidently he had good iron absorption in the past as evidenced by the normal ferritin in December 2017 but more recently has developed significant iron deficiency again. He was recently started back on oral iron therapy. -Patient likely has iron deficiency due to possible ongoing small GI blood loss and poor oral iron absorption, i.e. chronic H2 avinash therapy. Plan: -Recheck CBC and iron studies today. -If iron saturation and/or ferritin not increasing appropriately then parenteral iron. Discussed above plan with the patient and answered all his questions to his satisfaction. Jaydon Obrien, DO Normal [facility] CBCon 01-12-2019 Erythrocyte distribution width (RBC) [Ratio] 17.9 % High 11.5-15.0 [facility] Hematocrit (Bld) [Volume fraction] 36.4 % Low 39.0-51.0 [facility] Hemoglobin (Bld) [Mass/Vol] 12.0 g/dL Low 13.0-17.0 [facility] MCH (RBC) [Entitic mass] 27.3 pg Normal 26.0-34.0 [facility] MCHC (RBC) [Mass/Vol] 33.0 g/dL Normal 30.5-36.0 [facility] MCV (RBC) [Entitic vol] 82.7 fL Normal 80.0-100.0 [facility] Platelet mean volume (Bld) [Entitic vol] 10.1 fL Normal 9.0-12.7 [facility] Comment on above: Result Comment: Test performed by: [facility], [address] [place] [address] [address] [place] [address]. RBC (Bld) [#/Vol] 4.40 10*6/uL Normal 4.20-6.[address] [facility] WBC (Bld) [#/Vol] 6.72 10*3/uL Normal 3.70-11.[address] [facility] Platelet Cnt 289 k/uL Normal 150-400 [facility] Encounters Encounter Date Encounter Type Care Provider Facility Start: [facility] Start: 03-21-2023 [facility] Date [facility] Start: 1950 Sex Assigned At Not on file [facility] Gender identity Not on file [facility] Telephone encounter Note 03-21-2023 Telephone Encounter - Adri Perez RN - 03/21/2023 8:07 PM EST Note Date & Type Note Facility 03-21-2023 Telephone encounter Note Form atting of this note might be different from the original. S: Pt's calling [facility] Nurse Advice Line regarding prescription problem. B: Pt was discharged today from [facility]. A: states [employer] insurance will not cover pt's insulin that was prescribed at discharge. wants to know why, and also what he can take instead. R: Advised that she has reached the [facility] Nurse Advice Line, and to please call the other number on her card regarding prescriptions. Caller ended call. Reason for Disposition [1] Follow-up call to recent contact AND [2] information only call, no triage required Protocols used: Information Only Call - No [id number] [facility] Health Note 03-21-2023 Telephone Encounter - Adri Perez RN - 03/21/2023 8:07 PM EST Note Date & Type Note Facility 03-21-2023 Miscellaneous Notes Formattin g of this note might be different from the original. S: Pt's calling [facility] Nurse Advice Line regarding prescription problem. B: Pt was discharged today from [facility]. [facility]. wants to know why, and also what he can take instead. R: Advised that she has reached the [facility] Nurse Advice Line, and to please call the other number on her card regarding prescriptions. Caller ended call. Reason for Disposition [1] Follow-up call to recent contact AND [2] information only call, no triage required Protocols used: Information Only Call - No [id number] documented in this encounter [facility] Health Summary Purpose Family History No Family History Records FoundNo Family History Records Found Advance Directives No Advanced Directives Records FoundNo Advanced Directives Records Found Additional Source Comments (unrecognized sect ion and content) No Status Records FoundNo Status Records Found INFORMATION SOURCE (unrecogn ized section and content) DATE CREATED AUTHOR 01/29/2019 [facility] DATE CREATED AUTHOR AUTHOR'S TRU ATCONSTANTINO 03/23/2023 [facility] Reason for Visit (unrecogniz ed section and content) Reason Onset Date Comments Medication Problem 03/21/2023 FOR RECORDS PERTAINING TO PATIENTS WHO ARE [...] BE BASED ON THE PRIMARY CLINICAL RECORDS. [employer] [facility]. provides no warranty or guarantee of the accuracy or completeness of information in this document.
[2023-11-14 18:35] LABS: Differential Indicated SCAN CRITERIA MET
[2023-11-14 18:37] LABS: Differential Comment SCANNED; Platelet Estimate ADEQUATE (ADEQ); Platelet Morphology LARGE; Toxic Granulation 1+
[2023-11-14 18:47] LABS: Anion Gap 4 (5-15); BUN 48 mg/dL (7-18); Calcium,Total 9.2 mg/dL (8.5-10.1); Chloride 109 mmol/L (98-107); Creatinine, Serum 1.41 mg/dL (0.70-1.30); EST Glomerular Filtration Rate 52 mL/min (>60); Est Glom Filt Rate - Afr Amer 63 mL/min (>60); Estimated Creatinine Clearance 54.83 ml/min; Glucose 179 mg/dL (74-106); Potassium 4.6 mmol/L (3.5-5.1); Sodium Level 138 mmol/L (136-145); Troponin-I HS 300 pg/mL (3.0-78.0)
--- NOTE | 2023-11-14 19:59 | HP.PCM.HOS_ITS ---
HPI - General General Date of Admission: 11/14/23 Date of Service: 11/14/23 Chief Complaint: Unresponsive, lethargic, hypoxia, recent discharge. 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) s/p IVC Filter placement, Former tobacco use, Hx COVID-19 PNA , Pulmonary Fibrosis, COPD/asthma w/ Chronic Hypoxic Respiratory Failure (3-4L NC), Anxiety and Depression, Chronic anemia/Fe deficiency anemia w/ Hx GI bleed w/ AVMs, recent discharge 11/11/23 with recommendation per infectious disease at discharge for continued completion of Decadron and continuation of empiric antibiotic therapy with specifically Levaquin 500 mg planned 5 additional days and Decadron 6 mg with 8 additional days of treatment now re-presenting to the [facility] ED on 11/14/23 with history of worsening dyspnea recently discharged to home on supplemental oxygen with COVID but given significantly worsened dyspnea prompting EMS call who noted the patient was up to 6 L and was only saturating 87% prompting transition to a nonrebreather eventually into the 90s with increased fatigue and lethargy on day of presentation per family who was at work when home health nurse checked on him found less responsive with his head on the table prompting EMS call at that time and family noted when they called EMS he was 85% on 4 L. During recent presentation patient had CT head and CTPA with no acute findings. Also of note his troponin upon most recent presentation was alex lrange, 44.Workup in the ED included T99.2, heart rate 86, BP 139/59, respiratory rate 30, 94% initially on 10 L nonrebreather with most recent repeat vitals T98.7, heart 78, BP 124/62, respiratory rate 32, 98% on 4 L which is what patient was recently discharged on on 11/11/2023, CBC with WC 15.4, Shepard 10.7, MCV 90.8, platelet level not reported secondary to clumping, left shift noted, ABG with pH 7.41, bicarb 20.4, pCO2 45.8, pO2 55 on nasal cannula, BMP with chloride 109, BUN/creatinine 48/1.41, GFR 52, glucose 179, troponin initial 300, chest x-ray with bibasilar interstitial thickening more pronounced on the right possibly consistent with inflammatory disease. In the ED patient administered DuoNeb therapy. [facility] Medical History FTT (failure to thrive) in adult Former smoker On home oxygen therapy Bleeding tendency Ulcer High cholesterol History of stress test HTN (hypertension) Tobacco abuse History of pulmonary embolus (PE) (04/30/21) Essential hypertension Type 2 diabetes mellitus DVT (deep venous thrombosis) (05/01/21) Rhinovirus Acute respiratory failure with hypoxia Physical debility COVID-19 in immunocompromised patient Nicotine dependence, cigarettes, uncomplicated Diabetes Arthritis Cancer COPD (chronic obstructive pulmonary disease) History of basal cell carcinoma Atherosclerosis of coronary artery of [place] heart without angina pectoris Pneumonia Non-Hodgkin lymphoma History of pilonidal cyst Allergic rhinitis 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 complications Gastritis Colon polyp Obesity Asthma Chronic bronchitis Positive colorectal cancer screening using Cologuard test RA (rheumatoid arthritis) Home Medications ?Medication ?Instructions ?Recorded ?Last Taken ?Type nitroglycerin 0.4 mg sublingual 0.4 mg sublingual Q5M PRN chest 09/25/20 Unknown Rx tablet (Nitrostat) pain #30 tabs finasteride 5 mg tablet 5 mg PO DAILY prostate 08/14/22 03/16/23 History tamsulosin 0.4 mg capsule 0.4 mg PO QHS prostate 08/14/22 03/15/23 History multivitamin 1 tab PO DAILY vitamin 09/13/22 03/16/23 History menthol 0.44 %-zinc oxide 20.6 % 1 applic topical 4-6XD PRN skin 03/07/23 Unknown Rx topical ointment (Calmoseptine) irritation #113 grams ferrous sulfate 325 mg (65 mg 325 mg PO LUNCH 30 days #30 tabs 03/21/23 Unknown Rx iron) tablet (FeroSul) furosemide 40 mg tablet (Lasix) 20 mg (1/2 x 40 mg) PO DAILY 03/27/23 Unknown Rx diuretic #30 tabs prednisone 2.5 mg tablet 5 mg PO DAILY copd 05/28/23 Unknown History carvedilol 3.125 mg tablet 3.125 mg PO BID #60 tabs 06/05/23 Unknown Rx atorvastatin 40 mg tablet 20 mg (1/2 x 40 mg) PO QHS 09/18/23 Unknown Rx cholesterol #90 tabs budesonide 1 mg/2 mL suspension 1 mg (2 mL) inhalation Q12H #120 mL 09/19/23 Unknown Rx for nebulization ipratropium 0.5 mg-albuterol 3 mg 3 ml inhalation Q4H PRN PRN SOB 09/19/23 Unknown Rx (2.5 mg base)/3 mL nebulization &/OR WHEEZING #270 mL soln escitalopram oxalate 10 mg tablet 10 mg PO DAILY mood 90 days #90 10/29/23 Unknown Rx tabs mirtazapine 15 mg tablet (Remeron) 7.5 mg (1/2 x 15 mg) PO QHS sleep 10/29/23 Unknown Rx #90 tabs pantoprazole 40 mg tablet,delayed 40 mg PO BID reflux 3 months #180 10/29/23 Unknown Rx release tabs dexamethasone 6 mg tablet 6 mg PO DAILY 8 days #8 tabs 11/11/23 Unknown Rx dextromethorphan-guaifenesin ER 60 1 tab PO BID 7 days #14 tabs 11/11/23 Unknown Rx mg-1,200 mg tab,extend release,12hr empagliflozin 10 mg tablet 10 mg PO DAILY #90 tabs 11/11/23 Unknown Rx (Jardiance) insulin glargine 100 unit/mL (3 10 unit (0.1 mL) subcut DAILY 1 11/11/23 Unknown Rx mL) subcutaneous pen (Lantus month #15 mL Solostar U-100 Insulin) cefdinir 300 mg capsule 300 mg PO BID 5 days #10 caps 11/12/23 Unknown Rx insulin aspart U-100 100 unit/mL 10 unit (0.1 mL) subcut TID 1 11/12/23 Unknown Rx (3 mL) subcutaneous pen month #9 mL insulin aspart U-100 100 unit/mL See Protocol subcut ACHS 1 month 11/12/23 Unknown Rx (3 mL) subcutaneous pen #15 mL needle (disp) 32 gauge 32 gauge x #100 ea 11/12/23 Unknown Rx 5/16 (Easy Touch Hypodermic Needle) pen needle, diabetic 32 gauge x #100 ea 11/12/23 Unknown Rx Allergy/AdvReac Type Severity Reaction Status Date / Time levofloxacin (From Levaquin) AdvReac Intermediate diarrhea, Verified 11/09/23 16:41 dizziness, GI upset, weakness Family History Father Arthritis Bleeding disorder Hypertension Kidney disease Cancer Skin Anemia blood clots Emphysema lung Mother Colon cancer Cancer Lung Cancer Diabetes Brother Thyroid disorder Surgical History History of embolic filter insertion History of heart artery stent Status post cardiac surgery H/O cardiac catheterization Presence of IVC filter (04/2021) History of coronary artery stent placement (10/22/13) History of thymectomy Hx of lymph node excision History of excision of pilonidal cyst Social History household members: spouse Smoking Status: Former smoker Tobacco: How many years used: 55 second hand exposure: Yes alcohol intake: current alcohol intake frequency: holidays/special occasions only substance use type: does not use caffeine: Yes Type: coffee Number of servings: 3 what type of physical activity do you participate in: none frequency: does not exercise seatbelt use: always ROS ROS Narrative ROS difficult to obtain, but after length discussion and needed to be awoken several times, redirected able to obtain: Admission Review of Systems: CONSTITUTIONAL: No weight loss, fever, chills, + weakness or fatigue. HEENT: Eyes: No visual loss, blurred vision, double vision or yellow sclerae. Ears, Nose, Throat: No hearing loss, sneezing, congestion, runny nose or sore throat. SKIN: No rash or itching, lesions, wounds. CARDIOVASCULAR: + Edema. No chest pain, chest pressure or chest discomfort, palpitations, orthopnea, syncopal events. RESPIRATORY: + Shortness of breath, cough with occasional sputum, occasional wheezing, No hemoptysis. GASTROINTESTINAL: + Anorexia, abdominal cramping. No nausea, vomiting, diarrhea, abdominal pain, melena, BRBPR. GENITOURINARY: No dysuria, frequency, urgency or retention. NEUROLOGICAL: + Confusion. No headache, dizziness, syncope, paralysis, ataxia, numbness or tingling in the extremities, focal weakness, change in bowel or bladder control, seizure. MUSCULOSKELETAL: + muscle, back pain, joint pain or stiffness. HEMATOLOGIC: + anemia, easy bleeding/bruising. LYMPHATICS: No enlarged nodes. No history of splenectomy. PSYCHIATRIC: + history of depression and anxiety. ENDOCRINOLOGIC: No reports of sweating, cold or heat intolerance. No polyuria or polydipsia. ALLERGIES: No history of asthma, hives, eczema or rhinitis. Vital Signs Vital Signs Vital Signs: 11/14/23 17:31 11/14/23 17:36 11/14/23 17:40 Temperature 99.2 F H Temperature Source Oral Pulse Rate 86 86 Respiratory Rate 30 H 27 H Respiratory Effort Respiratory Depth Blood Pressure 139/59 H Blood Pressure Mean 85 Pulse Ox 94 96 98 Oxygen Delivery Method Non-Rebreather Nasal Cannula Nasal Cannula Oxygen Flow Rate (L/min) 10 6 6 11/14/23 17:43 11/14/23 17:53 11/14/23 18:03 Temperature Temperature Source Pulse Rate Respiratory Rate Respiratory Effort Labored Respiratory Depth Shallow Blood Pressure Blood Pressure Mean Pulse Ox 97 95 Oxygen Delivery Method Nasal Cannula Nasal Cannula Nasal Cannula Oxygen Flow Rate (L/min) 4 4 5 11/14/23 18:03 11/14/23 18:23 11/14/23 19:00 Temperature 98.7 F Temperature Source Temporal Pulse Rate 85 82 78 Respiratory Rate 34 H 28 H 32 H Respiratory Effort Respiratory Depth Blood Pressure 135/56 H 124/62 H Blood Pressure Mean 82 82 Pulse Ox 94 98 Oxygen Delivery Method Nasal Cannula Nasal Cannula Oxygen Flow Rate (L/min) 4 4 Weight Weight: 215 lb 13.321 oz Body Mass Index (BMI) 30.1 Physical Exam Narrative Physical Examination: General: Awakens to stimuli and will answer some questions but falling back asleep only transient alert, not answering orientation questions well given encephalopathy/lethargy, seated upright in the ED bed, fatigued and ill- appearing, no evidence of any respiratory distress. Skin: Normal color, normal turgor, no icterus, no cyanosis except occasional staged ecchymoses, BL LE venous stasis changes. HEENT: AT/NC, EOMI, PERRLA, mildly dry MM, no carotid bruits or JVD noted. Lungs: Diminished diffusely greater bases, mildly increased respiratory rate but no evidence of any distress, occasional end expiratory wheeze, no rhonchi or rales. Heart: Regular rate with regular rhythm; no gallop, rub audible. Abdomen: Soft, overweight, NTTP, ND, mildly hyperactive BS, no appreicated HSM. Extremities: No cyanosis, no clubbing, bilateral pedal to distal hickman edema, 1- 2+, chronic. Neurological: Awakens to stimuli and will answer some questions but falling back asleep only transient alert, oriented as noted, cognitive function not baseline intact; pupils equally reactive to light and accommodation, cranial nerves grossly normal, moving all 4 extremities, no focal deficits, strength severely globally decreased secondary to acute presentation. Psychiatric: Affect appears fatigued, ill-appearing, no evidence of any respiratory distress, no acute evidence of depressive or anxiety feelings but does have underlying history. Results Lab / Micro Data 11/14/23 17:48 11/14/23 17:48 Labs: Laboratory Results - last 24 hr 11/14/23 17:48: WBC 15.4 H, RBC 3.34 L, Hgb 10.7 L, Hct 33.0 L, MCV 98.8 H, MCH 32.0, MCHC 32.4, RDW Std Deviation 56.8 H, RDW Coeff of Rafael 15.8 H, Plt Count TNP, MPV 11.2, Immature Gran % (Auto) 4.700 H, Neut % (Auto) 79.2 H, Lymph % (Auto) 7.5 L, [place] % (Auto) 7.1, Eos % (Auto) 1.0, Baso % (Auto) 0.5, Absolute Neuts (auto) 12.2 H, Absolute Lymphs (auto) 1.16, Nucleated RBC % 0.5, Differential Comment SCANNED, Toxic Granulation 1+, Platelet Estimate ADEQUATE, Plt Morphology Comment LARGE, Sodium 138, Potassium 4.6, Chloride 109 H, Carbon Dioxide 25.0, Anion Gap 4 L, BUN 48 H, Creatinine 1.41 H, Estim Creat Clear Calc 54.83, Est GFR (MDRD) Af Amer 63, Est GFR (MDRD) Non-Af 52 L, BUN/Creatinine Ratio 34.0 H, Glucose 179 H, Calcium 9.2, Troponin I High Sens 300 H* ABG Data ABG results: ABG 11/14/23 17:53 Specimen Type ART Sample Site R Radial pH 7.41 Bicarbonate Actual 28.7 H Total CO2 30 Base Excess 4 H O2 Saturation 88 L O2 % 4.0 ABG pCO2 45.8 H ABG pO2 55 L Thompson Test Positive O2 Delivery Device Cannula Vent Mode Not entered Rhythm Strip Rhythm Strip: Sinus Rhythm Rate: 80 Ectopy: None Imaging Radiology Impression Chest X-Ray 11/14/23 17:55 IMPRESSION: Bibasilar interstitial thickening more pronounced on the right which may be consistent with inflammatory disease. Electronically Signed: Calderon Quintanilla MD at 18:21 EDT , Assessment & Plan Assessment/Plan (1) Acute on chronic respiratory failure with hypoxemia: (2) COVID-19: PLAN: Plan The patient is a 73 y/o M w/ PMHx: Rheumatoid arthritits previously on rituximab, Non-Hodgkin's lymphoma in remission, Diabetes mellitus type II, HTN, HLD, CAD s/p LAD, RCA (2001) and L circumflex (2013), Hx VTE (multiple BL PE, L common femoral and posterior tibial veins) s/p IVC Filter placement, Former tobacco use, Hx COVID-19 PNA , Pulmonary Fibrosis, COPD/asthma w/ Chronic Hypoxic Respiratory Failure (3-4L NC), Anxiety and Depression, Chronic anemia/Fe deficiency anemia w/ Hx GI bleed w/ AVMs, recent discharge 11/11/23 with recommendation per infectious disease at discharge for continued completion of Decadron and continuation of empiric antibiotic therapy with specifically Levaquin 500 mg planned 5 additional days and Decadron 6 mg with 8 additional days of treatment now re-presenting to the [facility] ED on 11/14/23 with history of worsening dyspnea recently discharged to home on supplemental oxygen with COVID but given significantly worsened dyspnea prompting EMS call who noted the patient was up to 6 L and was only saturating 87% prompting transition to a nonrebreather eventually into the 90s with increased fatigue and lethargy on day of presentation per family who was at work when home health nurse checked on him found less responsive with his head on the table prompting EMS call at that time and family noted when they called EMS he was 85% on 4 L. #1. Adult FTT, Multifactorial, secondary to diagnoses noted below in addition to presentation primary diagnosis Acute Encephalopathy (Infectious/Hypoxemia associated) secondary to Acute on Chronic Hypoxic and Hypercarbic Respiratory Failure secondary to Recent Acute COVID-19 and Superimposed Pseudomonas aeruginosa pneumonia complicated by underlying Chronic COPD and Pulmonary fibrosis: Will admit to PCU, maintain on oxygen with wean as tolerated to his home oxygen supplementation 4 L nasal cannula, continue ATC budeosonide therapy, PRN albuterol, continue oral decadron therapy and oral Levaquin regimen recently recommended per infectious disease, given recent CTPA and CT of the head will not repeat as both of these were unremarkable, ABG not severe appearing but did have mild CO2 elevation however pH not marked, hypoxia evident, maintain on fall and aspiration precautions, given representation likely would benefit from consideration of transitional care/skilled facility placement, PT/OT/casement consulted for discharge planning. #2. Elevated troponin, NSTEMI type II given dyspnea complaints likely secondary demand given number 1: EKG in ED w/ sinus rhythm with no acute evidence of ischemia, CXR w/ stable findings from recent presentation with noted bibasilar interstitial thickening more pronounced on the right. Trop elevated, 300 initial with most recent prior to this during recent admission 11/09/23 troponin 44. Will maintain on a monitored bed, continue serial cardiac enzymes and EKGs. Obtain magnesium level upon admission. Given significant GI bleed history will hold off on any anticoagulation until further enzyme trending however if it continues to significantly rise then we will add heparin drip. Will administer aspirin but need to monitor very closely given his GI bleed history this need not be tolerated long-term. Will continue medical therapy with statin, Coreg, not on MEDHAT inhibitor/ARB. Given high suspicion for demand we will hold off on immediate repeat echo as most recently performed 09/04/23 with noted LVEF 25%, moderately dilated LV, severe global hypokinesis LV, mild TVI, PASP 30 mmHg. Also of note 10/31/23 cardiac stress testing with pharmacological myocardial perfusion stress test with no areas of ischemia demonstrated with stable previous anterior apical and anterior septal infarct present with reduced EF which is known. #3. CAD: s/p LAD, RCA (2001) and L circumflex (2013), continue aspirin as noted above very cautiously, Coreg, statin therapy. Continued evaluation and treatment as noted above #2 although again suspect demand secondary to #1. #4. HFrEF: Most recent echocardiogram with LVEF 25% with severe global hypokinesis LV, very judiciously hydrate if necessary given this history and acute presentation, continue cautiously aspirin, statin, Coreg home regimen, not on MEDHAT number/ARB, continue Lasix therapy. #5. History recurrent GI bleeds, chronic anemia/Fe deficiency anemia w/ AVMs: Admission hemoglobin 10.7, MCV 98.8, baseline hemoglobin 9-10, stable, continue to trend. Given patient significant GI bleed history as noted above very cautiously utilizing aspirin, deferring heparin drip unless enzymes significantly rise, will maintain on PPI, continue iron supplementation. #6. Hx VTE, DVT and BL PE: Most recent event 07/2021 BL PE, prior DVT, history of significant GI bleeds status post IVC filter placement. #7. Diabetes mellitus type II: Will hold oral regimen, continue long-acting insulin regimen, will maintain on ADA diet, accu checks with ISS. #8. Rheumatoid arthritits: Patient previously on rituximab, currently on low- dose prednisone, given current presentation with usage of Decadron will temporarily hold this, add back once complete Decadron therapy. #9. Hypertension: Continue home Coreg, Lasix, PRN hydralazine. #10. Hyperlipidemia: Continue home statin therapy. FLP in AM. #11. History Tobacco Abuse: Encouraged continued cessation. #12. History of non-Hodgkin's lymphoma: Considered in remission, encourage continued outpatient follow-up with oncology as previously arranged or needed. #13. Anxiety and depression: We will continue patient home escitalopram and mirtazapine regimen. #14. BPH: We will continue patient home finasteride and Flomax regimen. #15. DVT prophylaxis: Lovenox twice daily per COVID protocol cautiously especially given concurrent aspirin usage given #2. #16. CODE status: Patient HCPOA is his but she is currently on hospice and his son and granddaughter are his decision makers but they are not certain that his son is secondary HCPOA and looking into it. He does have LW in place also. Discussed CODE status at length including difference between FULL code, DNR-CCA and DNR-CC status with family and also reviewed his last status assignments. Following discussions about the differences in these status, requested DNR-CCA, no intubation. Advanced Care Planning Face to Face Time: 16 minutes. Charges/Coding Visit Charges Inpatient E&M: 23725 Init Hosp L3 Procedures Hospitalists Procedures: 96416 Advncd Care Plan 30 Min
--- OUTSIDE RECORDS SUMMARY | 2023-11-14 20:31 | XMS RPT_ITS | CCD ---
Author Organization [facility] Inform ion Partnership 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 B: Pt was discharged today from [facility]. A: states [facility] insurance will not cover pt's insulin that was prescribed at discharge. wants to know why, and also what he can take instead. R: Advised that she has reached the [facility] Nurse Advice Line, and to please call the other number on her card regarding prescriptions. Caller ended call. Reason for Disposition [1] Follow-up call to recent contact AND [2] information only call, no triage required Protocols used: Information Only Call - No [facility]-2019 O[facility] Visit (SP) Office ([place]) JAYDON ALONZO ([id number]) 1950 M Date Time Provider Department 01/12/19 [...] signs of GI bleeding however. Fatigued. 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 No h/o [...] leg. SKIN: No jaundice or rash. 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 No focal motor [...] Obrien DO Referring Provider: MARIO DE JESUS [[id number]] Allergies As of Date: 01/12/2019 (No Known Allergies) Date Reviewed: 01/12/2019 Reviewed by: Batool Torres - Fully Assessed Reason for Visit: New Patient Evaluation [154] Primary Visit Diagnosis:Iron deficiency anemia due to chronic blood loss [D50.0] Other Visit Diagnosis:Iron malabsorption [K90.9] Order(s):LEYDA CBC [SQWCBC] Order #: [id number] FUTURE Follow-up and Disposition History Recorded Prescriptions [...] by JAYDON OBRIEN DO on 01/12/19 Normal [facility] Ferritinon 01-12-2019 Ferritin [Mass/Vol] Test sent to [facility]. Normal 30.3-565.7 [facility] Comment on above: Result Comment: Acco unt Credited Iron and TIBCon 01-12-2019 Iron [Mass/Vol] Test sent to [facility]. Normal 41-186 [facility] Comment on above: Result Comment: Acco unt Credited TIBC Test sent to [facility]. Normal 232-386 [facility] Comment on above: Result Comment: Acco unt Credited Transferrin Saturatn Test sent to [facility]. Normal 15-57 [facility] Comment on above: Result Comment: Acco unt Credited PROGRESSon 01-12-2019 PROGRESS HNO ID: [id number] Author: Jaydon Obrien Service: ? Author Type: [...] signs of GI bleeding however. 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 No h/o [...] leg. SKIN: No jaundice or rash. 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 No focal motor [...] to his satisfaction. Jaydon Obrien, DO Normal [facility] CBCon 01-12-2019 Erythrocyte distribution width (RBC) [Ratio] 17.9 % High 11.5-15.0 [facility] Hematocrit (Bld) [Volume fraction] 36.4 % Low 39.0-51.0 [facility] Hemoglobin (Bld) [Mass/Vol] 12.0 g/dL Low 13.0-17.0 [facility] MCH (RBC) [Entitic mass] 27.3 pg Normal 26.0-34.0 [facility] MCHC (RBC) [Mass/Vol] 33.0 g/dL Normal 30.5-36.0 [facility] MCV (RBC) [Entitic vol] 82.7 fL Normal 80.0-100.0 [facility] Platelet mean volume (Bld) [Entitic vol] 10.1 fL Normal 9.0-12.7 [facility] Comment on above: Result Comment: Test performed by: [facility], [address] [place] [address] [address] [place] [address]. RBC (Bld) [#/Vol] 4.40 10*6/uL Normal 4.20-6.00 [facility] WBC (Bld) [#/Vol] 6.72 10*3/uL Normal 3.70-11.00 [facility] Platelet Cnt 289 k/uL Normal 150-400 [facility] Encounters Encounter Date Encounter Type Care Provider Facility Start: 03-21-2023 ambulatory Adri Perez RN [facility] Clinical Communication Start: 03-21-2023 Patient encounter procedure Adri Perez RN [facility] Clinical Communication Social History Date Type Detail Facility Tobacco smoking stat RUSTIS Tobacco smoking consumption unknown [facility] Start: 1950 Sex Assigned At Not on file [facility] Gender identity Not on file [facility] Telephone encounter Note 03-21-2023 Telephone Encounter - Adri Perez RN - 03/21/2023 8:07 PM EST Note Date & Type Note Facility 03-21-2023 Telephone encounter Note Form atting of this note might be different from the original. S: Pt's calling [facility] Nurse Advice Line regarding prescription problem. B: Pt was discharged today from [facility]. A: states [facility] insurance will not cover pt's insulin that was prescribed at discharge. wants to know why, and also what he can take instead. R: Advised that she has reached the [facility] Nurse Advice Line, and to please call the other number on her card regarding prescriptions. Caller ended call. Reason for Disposition [1] Follow-up call to recent contact AND [2] information only call, no triage required Protocols used: Information Only Call - No [id number] [facility] Health Note 03-21-2023 Telephone Encounter - Adri Perez RN - 03/21/2023 8:07 PM EST Note Date & Type Note Facility 03-21-2023 Miscellaneous Notes Formattin g of this note might be different from the original. S: Pt's calling [facility] Nurse Advice Line regarding prescription problem. B: Pt was discharged today from [facility]. A: states [facility] insurance will not cover pt's insulin that was prescribed at discharge. wants to know why, and also what he can take instead. R: Advised that she has reached the [facility] Nurse Advice Line, and to please call the other number on her card regarding prescriptions. Caller ended call. Reason for Disposition [1] Follow-up call to recent contact AND [2] information only call, no triage required Protocols used: Information Only Call - No [id number] documented in this encounter [facility] Health Summary Purpose Family History No Family History Records FoundNo Family History Records Found Advance Directives No Advanced Directives Records FoundNo Advanced Directives Records Found Additional Source Comments (unrecognized sect ion and content) No Status Records FoundNo Status Records Found INFORMATION SOURCE (unrecogn ized section and content) DATE CREATED AUTHOR 01/29/2019 [facility] DATE CREATED AUTHOR AUTHOR'S TRU ATCONSTANTINO 03/23/2023 [facility] Reason for [...] BE BASED ON THE PRIMARY CLINICAL RECORDS. [employer] [facility]. provides no warranty or guarantee of the accuracy or completeness of information in this document.
[2023-11-14 20:40] LABS: Magnesium 2.3 mg/dL (1.6-2.6)
--- NOTE | 2023-11-14 21:54 | PCM.HOSP.N ---
Hospitalist Note Clarified that patient levaquin was stopped and changed to oral cefdinir secondary to GI side effects of note. Patient fatigued and lethargic with unsafe oral intake currently. Will change to IV zosyn temporarily, IV decadron and IV PPI until improved and change also to WI ASA x 1 now.
[2023-11-14] MEDS: Enoxaparin 30 MG/0.3 ML Syringe SC (22:20)
[2023-11-14] MEDS: Aspirin 300 MG Suppository RC (22:21)
[2023-11-14] MEDS: Pantoprazole Sodium 40 MG in 0.9% Normal Saline (100mL MB+) 100 ML 330 MG IV (22:21)
[2023-11-14] MEDS: dexAMETHasone 4 MG/ML Vial 6 MG IV (22:21)
[2023-11-14] MEDS: 0.9% Saline Lock 10 ML Syringe IV (22:21)
[2023-11-14] MEDS: 0.9% Normal Saline (1000mL) 1,000 ML 75 ML IV (22:21)
[2023-11-14 22:22] LABS: Troponin-I HS 326 pg/mL (3.0-78.0)
[2023-11-14] MEDS: Insulin Lispro 100 UNIT/ML INSULN.PEN SC (22:23)
[2023-11-14] MEDS: Piperacil/Tazobactam 3.375 GM in 0.9% Normal Saline (50mL MB+) 50 ML IV (22:47)
[2023-11-14 22:58] LABS: Bedside Glucose 151 mg/dL (74-106)
--- NOTE | 2023-11-14 23:46 | CPS ---
Patient refused PAP therapy for night time use.
[2023-11-14 23:51] LABS: Troponin-I HS 315 pg/mL (3.0-78.0)
[2023-11-15 03:17] VITALS: BMI 28.9
[2023-11-15 03:20] VITALS: BP 118/60; PULSE 71; RESP 18; TEMP 36.2; O2SAT 97
[2023-11-15 04:04] LABS: Absolute Lymphocyte Count 0.65 X10^3/uL (0.83-4.51); Absolute Neutrophil Count 11.9 X10^3/uL (2.0-7.7); Basophil# 0.09 X10^3/uL; Basophil% 0.7 % (0-1); Eosinophil# 0.05 X10^3/uL; Eosinophils% 0.4 % (0-5); Hematocrit 29.2 % (40-54); Hemoglobin 9.4 g/dL (13.0-16.5); Lymphocyte # 0.65 X10^3/ul (0.83-4.51); Lymphocyte % 4.7 % (19-41); Mean Corp Hgb Conc 32.2 g/dL (32-36); Mean Corpuscular Hgb 31.9 pg (27.0-32.0); Mean Platelet Vol. 10.8 fl (6.2-12.0); Monocyte# 0.54 X10^3/uL; Monocyte% 3.9 % (0-10); NRBC Flagged by Analyzer 0.1 % (0-5); Platelet Count 210 K/mm3 (150-450); RBC Distribution Width CV 15.9 % (11.6-14.6); RBC Distribution Width SD 57.6 fl (35.1-43.9); Red Blood Count 2.95 M/mm3 (4.6-6.2); White Blood Count 13.8 K/mm3 (4.4-11.0)
[2023-11-15 04:27] LABS: ALB/GLOB Ratio 0.8 RATIO (0.9-2.4); AST(SGOT) 14 U/L (15-37); Alanine Aminotransfer ALT/SGPT 21 U/L (16-61); Albumin, Serum 2.6 g/dL (3.2-5.0); Alkaline Phosphatase 53 U/L (45-117); Anion Gap 4 (5-15); BUN 49 mg/dL (7-18); BUN/Creat Ratio 37.7 RATIO (10-20); Calcium,Total 8.6 mg/dL (8.5-10.1); Chloride 111 mmol/L (98-107); Cholesterol 137 mg/dL (200); EST Glomerular Filtration Rate 57 mL/min (>60); Est Glom Filt Rate - Afr Amer 69 mL/min (>60); Estimated Creatinine Clearance 58.37 ml/min; Globulin 3.1 g/dL (2.2-4.2); Glucose 262 mg/dL (74-106); High Density Lipoprotein 45 mg/dL; Potassium 4.7 mmol/L (3.5-5.1); Protein, Total 5.7 g/dL (6.4-8.2); Sodium Level 141 mmol/L (136-145); Triglycerides 252 mg/dL; Very Low Density Lipoprotein 50 mg/dL (5-40)
[2023-11-15 04:50] LABS: Troponin-I HS 216 pg/mL (3.0-78.0)
[2023-11-15] MEDS: Piperacil/Tazobactam 3.375 GM in 0.9% Normal Saline (50mL MB+) 50 ML IV ×3 (05:06→22:09)
[2023-11-15] MEDS: Menthol/Lanolin/Calamine/Znox 113 GM Tube 1 APPLIC TOPICAL ×3 (05:06→22:04)
[2023-11-15 07:57] VITALS: PULSE 82; RESP 20; O2SAT 96
[2023-11-15] MEDS: Budesonide Respules 0.5 MG/2 ML AMPUL.NEB. INHALATION ×2 (07:57→19:50)
[2023-11-15 10:00] VITALS: BP 102/65; PULSE 101; RESP 18; TEMP 36.6; O2SAT 96
[2023-11-15] MEDS: Enoxaparin 30 MG/0.3 ML Syringe SC ×2 (10:01→22:04)
[2023-11-15] MEDS: Aspirin 81 MG TAB.CHEW PO (10:01)
[2023-11-15] MEDS: Carvedilol 3.125 MG TABLET PO ×2 (10:01→22:03)
[2023-11-15] MEDS: Finasteride 5 MG Tablet PO (10:01)
[2023-11-15] MEDS: guaiFENesin/D-Methorphan TAB.SR.12H 2 TABLET PO ×2 (10:01→22:03)
[2023-11-15] MEDS: Escitalopram Oxalate 10 MG Tablet PO (10:01)
[2023-11-15] MEDS: Pantoprazole Sodium 40 MG in 0.9% Normal Saline (100mL MB+) 100 ML 330 MG IV ×2 (10:02→21:41)
[2023-11-15] MEDS: Nystatin Powder 15gm Bottle 1 APPLIC TOPICAL ×2 (10:02→22:04)
[2023-11-15] MEDS: dexAMETHasone 4 MG/ML Vial 6 MG IV (10:02)
[2023-11-15] MEDS: Insulin Glargine-YFGN 100 UNIT/ML Pen 10 UNIT SC (10:03)
[2023-11-15] MEDS: Insulin Lispro 100 UNIT/ML INSULN.PEN 10 UNIT SC ×3 (10:04→16:38)
[2023-11-15] MEDS: Insulin Lispro 100 UNIT/ML INSULN.PEN SC ×3 (10:04→22:05)
[2023-11-15 10:33] LABS: Bedside Glucose 288 mg/dL (74-106)
[2023-11-15] MEDS: Ferrous Sulfate 325 MG Tablet PO (12:45)
[2023-11-15] MEDS: Furosemide 20 MG Tablet PO (12:45)
[2023-11-15 13:12] LABS: Bedside Glucose 264 mg/dL (74-106)
[2023-11-15 16:00] VITALS: BP 91/62; PULSE 68; RESP 12; TEMP 36.6; O2SAT 98
--- NOTE | 2023-11-15 16:49 | PCM.PN.HOSP ---
Subjective Subjective Doing well, lethargic and tired at times. Was transition to IV medications overnight Objective Data Objective Data Vital Signs: Vital Signs Temp Pulse Resp BP Pulse Ox O2 Del Method O2 Flow Rate 97.8 F 68 12 91/62 98 Nasal Cannula 3 11/15/23 16:00 11/15/23 16:00 11/15/23 16:00 11/15/23 16:00 11/15/23 16:00 11/15/23 16:00 11/15/23 16:00 Oxygen Flow Rate (L/min) 3 Oxygen Delivery Method Nasal Cannula Weight: 207 lb 3.752 oz Body Mass Index (BMI) 28.9 Intake & Output: Intake and Output for Last 24 Hours 11/14/23 11/15/23 11/16/23 03:59 03:59 03:59 Intake Total 110 / 110 830 / 830 Output Total 350 / 350 Balance 110 / 110 480 / 480 Lab / Micro Data 11/16/23 05:00 11/16/23 05:25 Labs: Laboratory Results - last 24 hr 11/14/23 17:48: WBC 15.4 H, RBC 3.34 L, Hgb 10.7 L, Hct 33.0 L, MCV 98.8 H, MCH 32.0, MCHC 32.4, RDW Std Deviation 56.8 H, RDW Coeff of Rafael 15.8 H, Plt Count TNP, MPV 11.2, Immature Gran % (Auto) 4.700 H, Neut % (Auto) 79.2 H, Lymph % (Auto) 7.5 L, Mcmullen % (Auto) 7.1, Eos % (Auto) 1.0, Baso % (Auto) 0.5, Absolute Neuts (auto) 12.2 H, Absolute Lymphs (auto) 1.16, Nucleated RBC % 0.5, Differential Comment SCANNED, Toxic Granulation 1+, Platelet Estimate ADEQUATE, Plt Morphology Comment LARGE, Sodium 138, Potassium 4.6, Chloride 109 H, Carbon Dioxide 25.0, Anion Gap 4 L, BUN 48 H, Creatinine 1.41 H, Estim Creat Clear Calc 54.83, Est GFR (MDRD) Af Amer 63, Est GFR (MDRD) Non-Af 52 L, BUN/Creatinine Ratio 34.0 H, Glucose 179 H, Calcium 9.2, Troponin I High Sens 300 H* 11/14/23 18:21: Magnesium 2.3 11/14/23 21:23: Troponin I High Sens 326 H* 11/14/23 21:56: POC Glucose 151 H 11/14/23 23:19: Troponin I High Sens 315 H* 11/15/23 03:45: WBC 13.8 H, RBC 2.95 L, Hgb 9.4 L, Hct 29.2 L, MCV 99.0 H, MCH 31.9, MCHC 32.2, RDW Std Deviation 57.6 H, RDW Coeff of Rafael 15.9 H, Plt Count 210, MPV 10.8, Immature Gran % (Auto) 4.300 H, Neut % (Auto) 86.0 H, Lymph % (Auto) 4.7 L, Mcmullen % (Auto) 3.9, Eos % (Auto) 0.4, Baso % (Auto) 0.7, Absolute Neuts (auto) 11.9 H, Absolute Lymphs (auto) 0.65 L, Nucleated RBC % 0.1, Sodium 141, Potassium 4.7, Chloride 111 H, Carbon Dioxide 26.0, Anion Gap 4 L, BUN 49 H, Creatinine 1.30, Estim Creat Clear Calc 58.37, Est GFR (MDRD) Af Amer 69, Est GFR (MDRD) Non-Af 57 L, BUN/Creatinine Ratio 37.7 H, Glucose 262 H, Calcium 8.6, Total Bilirubin 0.60, AST 14 L, ALT 21, Alkaline Phosphatase 53, Troponin I High Sens 216 H*, Total Protein 5.7 L, Albumin 2.6 L, Globulin 3.1, Albumin/Globulin Ratio 0.8 L, Triglycerides 252 H, Cholesterol 137, LDL Cholesterol 42, VLDL Cholesterol 50 H, HDL Cholesterol 45 11/15/23 09:47: POC Glucose 288 H 11/15/23 12:44: POC Glucose 264 H ABG Data ABG results: ABG 11/14/23 17:53 Specimen Type ART Sample Site R Radial pH 7.41 Bicarbonate Actual 28.7 H Total CO2 30 Base Excess 4 H O2 Saturation 88 L O2 % 4.0 ABG pCO2 45.8 H ABG pO2 55 L Thompson Test Positive O2 Delivery Device Cannula Vent Mode Not entered Radiography Diagnostic Testing: Radiology Impression Chest X-Ray 11/14/23 17:55 IMPRESSION: Bibasilar interstitial thickening more pronounced on the right which may be consistent with inflammatory disease. Electronically Signed: Calderon Quintanilla MD at 18:21 EDT , Rhythm Strip Rhythm Strip: Sinus Rhythm Rate: 80 Ectopy: None Physical Exam Narrative General: Awakens to stimuli but tired, Oriented x2, Cooperative, No apparent distress HEENT: Atraumatic, PERRLA, EOMI, Normocephalic Oral: Moist Mucosa Neck: Supple, No JVD Lungs: Diminished, Normal air movement, No rhonchi, scattered wheeze, No rales Cardiovascular: Regular rate, Regular Rhythm, Normal S1, Normal S2, No murmurs Abdomen: Soft, Non Tender, Non-Distended, No Hepato-splenomegaly Extremities: Edema, Capillary Refill Less than 3 Seconds Skin: No rashes, No breakdown Musculoskeletal: No Tenderness to Palpation of Joints or Extremities Neurological: Difficult to keep him awake enough to follow exam Psych/Mental Status: Flat Assessment & Plan Assessment/Plan (1) Acute on chronic respiratory failure with hypoxemia: (2) COVID-19: PLAN: Plan #1. Adult FTT, Multifactorial, secondary to diagnoses noted below in addition to presentation primary diagnosis Acute Encephalopathy (Infectious/Hypoxemia associated) secondary to Acute on Chronic Hypoxic and Hypercarbic Respiratory Failure secondary to Recent Acute COVID-19 and Superimposed Pseudomonas aeruginosa pneumonia complicated by underlying Chronic COPD and Pulmonary fibrosis: Will admit to PCU, maintain on oxygen with wean as tolerated to his home oxygen supplementation 4 L nasal cannula, continue ATC budeosonide therapy, PRN albuterol, continue oral decadron therapy and oral Levaquin regimen recently recommended per infectious disease, given recent CTPA and CT of the head will not repeat as both of these were unremarkable, ABG not severe appearing but did have mild CO2 elevation however pH not marked, hypoxia evident, maintain on fall and aspiration precautions, given representation likely would benefit from consideration of transitional care/skilled facility placement, PT/OT/casement consulted for discharge planning. 11/15/2023: Continue with Decadron for a few more days, end date would be 11/18/2023 since he was on Decadron on the previous admission recently. He can be taken out of precautions also 11/18/2023 as his positive COVID test was on 11/09/2023 #2. Elevated troponin, NSTEMI type II given dyspnea complaints likely secondary demand given number 1: EKG in ED w/ sinus rhythm with no acute evidence of ischemia, CXR w/ stable findings from recent presentation with noted bibasilar interstitial thickening more pronounced on the right. Trop elevated, 300 initial with most recent prior to this during recent admission 11/09/23 troponin 44. Will maintain on a monitored bed, continue serial cardiac enzymes and EKGs. Obtain magnesium level upon admission. Given significant GI bleed history will hold off on any anticoagulation until further enzyme trending however if it continues to significantly rise then we will add heparin drip. Will administer aspirin but need to monitor very closely given his GI bleed history this need not be tolerated long-term. Will continue medical therapy with statin, Coreg, not on MEDHAT inhibitor/ARB. Given high suspicion for demand we will hold off on immediate repeat echo as most recently performed 09/04/23 with noted LVEF 25%, moderately dilated LV, severe global hypokinesis LV, mild TVI, PASP 30 mmHg. Also of note 10/31/23 cardiac stress testing with pharmacological myocardial perfusion stress test with no areas of ischemia demonstrated with stable previous anterior apical and anterior septal infarct present with reduced EF which is known. 11/15/2023: He had a stress test in the beginning of October which did not show any reversible perfusion defects, his troponins are currently trending down so we will monitor for now #3. CAD: s/p LAD, RCA (2001) and L circumflex (2013), continue aspirin as noted above very cautiously, Coreg, statin therapy. Continued evaluation and treatment as noted above #2 although again suspect demand secondary to #1. #4. HFrEF: Most recent echocardiogram with LVEF 25% with severe global hypokinesis LV, very judiciously hydrate if necessary given this history and acute presentation, continue cautiously aspirin, statin, Coreg home regimen, not on MEDHAT number/ARB, continue Lasix therapy. #5. History recurrent GI bleeds, chronic anemia/Fe deficiency anemia w/ AVMs: Admission hemoglobin 10.7, MCV 98.8, baseline hemoglobin 9-10, stable, continue to trend. Given patient significant GI bleed history as noted above very cautiously utilizing aspirin, deferring heparin drip unless enzymes significantly rise, will maintain on PPI, continue iron supplementation. #6. Hx VTE, DVT and BL PE: Most recent event 07/2021 BL PE, prior DVT, history of significant GI bleeds status post IVC filter placement. #7. Diabetes mellitus type II: Will hold oral regimen, continue long-acting insulin regimen, will maintain on ADA diet, accu checks with ISS. #8. Rheumatoid arthritits: Patient previously on rituximab, currently on low-dose prednisone, given current presentation with usage of Decadron will temporarily hold this, add back once complete Decadron therapy. #9. Hypertension: Continue home Coreg, Lasix, PRN hydralazine. #10. Hyperlipidemia: Continue home statin therapy. FLP in AM. #11. History Tobacco Abuse: Encouraged continued cessation. #12. History of non-Hodgkin's lymphoma: Considered in remission, encourage continued outpatient follow-up with oncology as previously arranged or needed. #13. Anxiety and depression: We will continue patient home escitalopram and mirtazapine regimen. #14. BPH: We will continue patient home finasteride and Flomax regimen. DVT: Lovenox Charges/Coding Visit Charges Inpatient E&M: 76357 Subs Hosp L2
--- NOTE | 2023-11-15 16:51 | CASEMGMT ---
Readmission Note: Index: 11/08-11/11/23. Dx: COVID, AE COPD, RF Readmission: 11/14/23. Dx: COVID, PNA, RF From index admission, the pt discharged home with new prescriptions for insulin, steroids, and antibiotics. There appeared to be some complications with the orders that Dr. Sharp placed for the pt. See TARAH Chavez CM note. At that time, the pt declined needs including HHC, SNF, or OP Tx. Per Scott's note, the pt was agreeable to a referral to [facility]. This RN CM to pt room at this time. Pt is tired but is willing to answer this TARAH DEL RIO questions at this time. Pt is A&Ox3. Pt states that he was able to get his insulin sorted out and that his granddaughter picked this up for him. Pt states that he was checking his blood sugar levels regularly. Pt states that his Levaquin was changed to Cefdinir d/t being allergic to Levaquin. Pt also states that he was wearing his home oxygen accordingly. Pt re-presented to [facility] with dyspnea. Moving forward, the plan is TBD. Pt lives with his at home. There is no current 6-click score in the system. Pt refused PT today. Anticipate home with HHC vs SNF. CM and SW to follow.
[2023-11-15 17:12] LABS: Bedside Glucose 143 mg/dL (74-106)
--- NOTE | 2023-11-15 19:46 | EKG12_ITS ---
Test Reason : A-FIB Blood Pressure : / mmHG Vent. Rate : 085 BPM Atrial Rate : 234 BPM P-R Int : 000 ms QRS Dur : 106 ms QT Int : 386 ms P-R-T Axes : 000 039 053 degrees QTc Int : 459 ms Atrial flutter with variable AV conduction Abnormal ECG When compared with ECG of 14-NOV-2023 17:35, MANUAL COMPARISON REQUIRED, DATA IS UNCONFIRMED Confirmed by Mekhi Garcia ([id number]), assistant editor AVINASH MARTINEZ ([id number]) on 11/17/2023 1:25:32 PM Referred By: Confirmed By:Mekhi Garcia
[2023-11-15 19:50] VITALS: PULSE 84; RESP 18; O2SAT 97
--- NOTE | 2023-11-15 20:26 | PCM.HOSP.N ---
Hospitalist Note Patient on monitor in rate controlled atrial fibrillation, new onset on aspirin and chemoprophylactic lovenox. Severe GI bleed history, will defer anticoagulation. Mag normal. Will check TSH. Given COVID presentation not surprising onset. Continue on coreg. Defer immediate ECHO request given COVID status.
[2023-11-15 21:45] VITALS: BP 99/59; PULSE 62; RESP 19; TEMP 36.2; O2SAT 99
[2023-11-15 21:56] LABS: Bedside Glucose 153 mg/dL (74-106)
[2023-11-15] MEDS: Tamsulosin HCl 0.4 MG Capsule PO (22:03)
[2023-11-15] MEDS: Mirtazapine 15 MG Tablet 7.5 MG PO (22:03)
[2023-11-15] MEDS: Atorvastatin Calcium 20 MG Tablet PO (22:03)
[2023-11-16] VITALS (18 sets, daily range): BP systolic 78–115; BP diastolic 47–76; PULSE 88–136; RESP 16–35; TEMP 36.4–39.2; O2SAT 89–99; BMI 27.0
[2023-11-16] MEDS: Benzonatate 100 MG Capsule PO (03:39)
[2023-11-16] MEDS: Acetaminophen 325 MG Tablet 650 MG PO (03:39)
--- NOTE | 2023-11-16 04:52 | PCM.HOSP.N ---
Hospitalist Note Patient with recurrent fever, tachypnea, increased oxygen requirement up to 5L, mildly tachycardic. Will add IV Vanc and request MRSA screen, requesting a repeat sputum Cx to be cautious, prior w/ pseudomona, will repeat CXR, also hypotensive thus will given small IVF bolus, bld Cx also requested.
--- NOTE | 2023-11-16 04:53 | RAD_ITS ---
INDICATION: DYSPNEA, HYPOXIA EXAMINATION/TECHNIQUE: X-RAY - XR Chest 1 View COMPARISON: November 14, 2023. FINDINGS: LINES/DEVICES: None. LUNGS: Linear subsegmental atelectasis in the lung bases. No consolidation, edema or effusion. No pneumothorax. MEDIASTINUM AND CARDIOVASCULAR STRUCTURES: Cardiac silhouette not enlarged. BONES AND SOFT TISSUES: Unremarkable. Sternotomy wires are midline and intact. RAD/Chest 1 View (Portable) IMPRESSION: Mild basilar atelectasis. Sternotomy changes. Electronically Signed: Satya Herrera MD at 6:34 EDT ,
[2023-11-16] MEDS: 0.9% Normal Saline (500mL Bag) 500 ML 999 ML IV (05:11)
[2023-11-16] MEDS: Piperacil/Tazobactam 3.375 GM in 0.9% Normal Saline (50mL MB+) 50 ML IV ×3 (05:14→21:54)
[2023-11-16] MEDS: Menthol/Lanolin/Calamine/Znox 113 GM Tube 1 APPLIC TOPICAL ×3 (05:14→21:55)
[2023-11-16] MEDS: Vancomycin HCl 2,000 MG in 0.9% Normal Saline (500mL Bag) 500 ML 250 MG IV (05:35)
[2023-11-16 06:13] LABS: Absolute Lymphocyte Count 0.55 X10^3/uL (0.83-4.51); Basophil# 0.03 X10^3/uL; Basophil% 0.2 % (0-1); Eosinophil# 0.01 X10^3/uL; Eosinophils% 0.1 % (0-5); Hematocrit 27.6 % (40-54); Hemoglobin 8.9 g/dL (13.0-16.5); Lymphocyte # 0.55 X10^3/ul (0.83-4.51); Lymphocyte % 3.1 % (19-41); Mean Corp Hgb Conc 32.2 g/dL (32-36); Mean Corpuscular Volume 99.3 fL (80-94); Mean Platelet Vol. 11.2 fl (6.2-12.0); Monocyte# 0.89 X10^3/uL; NRBC Flagged by Analyzer 0.2 % (0-5); Neutrophil # 15.95 X10^3/uL (2.7-7.7); Neutrophil % 90.1 % (47-70); POSITIVE DIFFERENTIAL YES; Platelet Count 222 K/mm3 (150-450); RBC Distribution Width CV 15.6 % (11.6-14.6); RBC Distribution Width SD 56.6 fl (35.1-43.9); Red Blood Count 2.78 M/mm3 (4.6-6.2); White Blood Count 17.7 K/mm3 (4.4-11.0)
--- NOTE | 2023-11-16 06:24 | PCM.RX.CS ---
Consult Antibiotic Management Pharmacy has been consulted to manage selected antibiotic: Vancomycin Type of Intervention Type of Consult: New start Labs Labs: Sodium 141 mmol/L (136-145) 11/15/23 03:45 Potassium 4.7 mmol/L (3.5-5.1) 11/15/23 03:45 Chloride 111 mmol/L (98-107) H 11/15/23 03:45 Carbon Dioxide 26.0 mmol/L (21.0-32.0) 11/15/23 03:45 Anion Gap 4 (5-15) L 11/15/23 03:45 BUN 49 mg/dL (7-18) H 11/15/23 03:45 Creatinine 1.30 mg/dL (0.70-1.30) 11/15/23 03:45 Est GFR (MDRD) Af Amer 69 mL/min (>60) 11/15/23 03:45 Est GFR (MDRD) Non-Af 57 mL/min (>60) L 11/15/23 03:45 BUN/Creatinine Ratio 37.7 RATIO (10-20) H 11/15/23 03:45 Glucose 262 mg/dL (74-106) H 11/15/23 03:45 Dosing Weight Weight used for dosin kg Estimated Creatinine Clearance Estimated Creatinine Clearance: 58.37 Goal Trough Goal Trough: 15-20 mcg/mL Pharmacy Plan for Drug Dosing Pharmacy Plan for Drug Dosing: Pharmacy Service will continue to monitor and adjust dosing as required. 2000MG LOADING DOSE, 1000MG Q12H TROUGH PRIOR TO 4TH DOSE Follow-Up Labs Follow-Up Labs: Trough: Vancomycin Date/Time Labs Ordered Labs to be done on [date and time ordered]: 11/16 @ 1709
[2023-11-16 06:54] LABS: Bedside Glucose 124 mg/dL (74-106)
[2023-11-16 07:00] LABS: Thyroid Stim Hormone (TSH) 0.256 uIU/mL (0.358-3.740)
[2023-11-16] MEDS: Budesonide Respules 0.5 MG/2 ML AMPUL.NEB. INHALATION ×2 (07:28→20:22)
[2023-11-16 07:36] LABS: ALB/GLOB Ratio 0.7 RATIO (0.9-2.4); AST(SGOT) 13 U/L (15-37); Alanine Aminotransfer ALT/SGPT 18 U/L (16-61); Albumin, Serum 2.3 g/dL (3.2-5.0); Alkaline Phosphatase 48 U/L (45-117); Anion Gap 4 (5-15); BUN 49 mg/dL (7-18); BUN/Creat Ratio 35.5 RATIO (10-20); Calcium,Total 8.3 mg/dL (8.5-10.1); Chloride 114 mmol/L (98-107); Creatinine, Serum 1.38 mg/dL (0.70-1.30); EST Glomerular Filtration Rate 54 mL/min (>60); Est Glom Filt Rate - Afr Amer 65 mL/min (>60); Estimated Creatinine Clearance 53.07 ml/min; Globulin 3.2 g/dL (2.2-4.2); Glucose 134 mg/dL (74-106); Protein, Total 5.5 g/dL (6.4-8.2); Sodium Level 142 mmol/L (136-145)
[2023-11-16] MEDS: Aspirin 81 MG TAB.CHEW PO (08:41)
[2023-11-16] MEDS: Enoxaparin 30 MG/0.3 ML Syringe SC ×2 (08:41→22:15)
[2023-11-16] MEDS: Furosemide 20 MG Tablet PO (08:41)
[2023-11-16] MEDS: Escitalopram Oxalate 10 MG Tablet PO (08:41)
[2023-11-16] MEDS: dexAMETHasone 4 MG/ML Vial 6 MG IV (08:41)
[2023-11-16] MEDS: Nystatin Powder 15gm Bottle 1 APPLIC TOPICAL ×2 (08:42→21:55)
[2023-11-16] MEDS: guaiFENesin/D-Methorphan TAB.SR.12H 2 TABLET PO ×2 (08:42→21:55)
[2023-11-16] MEDS: Carvedilol 3.125 MG TABLET PO ×2 (08:42→21:54)
[2023-11-16] MEDS: 0.9% Saline Lock 10 ML Syringe IV (08:42)
[2023-11-16] MEDS: Finasteride 5 MG Tablet PO (08:42)
[2023-11-16] MEDS: Pantoprazole Sodium 40 MG in 0.9% Normal Saline (100mL MB+) 100 ML 330 MG IV ×2 (08:44→21:54)
[2023-11-16 11:35] LABS: Bedside Glucose 163 mg/dL (74-106)
[2023-11-16] MEDS: Ferrous Sulfate 325 MG Tablet PO (11:36)
[2023-11-16] MEDS: Insulin Lispro 100 UNIT/ML INSULN.PEN SC ×3 (11:36→21:53)
--- NOTE | 2023-11-16 16:12 | PCM.PN.HOSP ---
Subjective Subjective Had some rate controlled A-fib overnight which is new onset however he is not an anticoagulation candidate, he also had a fever and was a little bit tachycardic later on in the evening so blood cultures were obtained Objective Data Objective Data Vital Signs: Vital Signs Temp Pulse Resp BP Pulse Ox O2 Del Method O2 Flow Rate 99.0 F 101 H 28 H 96/61 98 Nasal Cannula 6 11/16/23 15:00 11/16/23 15:00 11/16/23 15:00 11/16/23 15:00 11/16/23 15:00 11/16/23 15:00 11/16/23 15:00 Oxygen Flow Rate (L/min) 6 Oxygen Delivery Method Nasal Cannula Weight: 205 lb 0.478 oz Body Mass Index (BMI) 27.0 Intake & Output: Intake and Output for Last 24 Hours 11/15/23 11/16/23 11/17/23 03:59 03:59 03:59 Intake Total 110 / 110 1240 / 1240 1300 / 1300 Output Total 700 / 700 650 / 650 Balance 110 / 110 540 / 540 650 / 650 Lab / Micro Data 11/16/23 05:00 11/16/23 05:25 Labs: Laboratory Results - last 24 hr 11/15/23 16:36: POC Glucose 143 H 11/15/23 21:36: POC Glucose 153 H 11/16/23 05:00: WBC 17.7 H, RBC 2.78 L, Hgb 8.9 L, Hct 27.6 L, MCV 99.3 H, MCH 32.0, MCHC 32.2, RDW Std Deviation 56.6 H, RDW Coeff of Rafael 15.6 H, Plt Count 222, MPV 11.2, Immature Gran % (Auto) 1.500 H, Neut % (Auto) 90.1 H, Lymph % (Auto) 3.1 L, [place] % (Auto) 5.0, Eos % (Auto) 0.1, Baso % (Auto) 0.2, Absolute Neuts (auto) 16.0 H, Absolute Lymphs (auto) 0.55 L, Nucleated RBC % 0.2 11/16/23 05:25: Sodium 142, Potassium 4.0, Chloride 114 H, Carbon Dioxide 24.0, Anion Gap 4 L, BUN 49 H, Creatinine 1.38 H, Estim Creat Clear Calc 53.07, Est GFR (MDRD) Af Amer 65, Est GFR (MDRD) Non-Af 54 L, BUN/Creatinine Ratio 35.5 H, Glucose 134 H, Calcium 8.3 L, Total Bilirubin 0.50, AST 13 L, ALT 18, Alkaline Phosphatase 48, Total Protein 5.5 L, Albumin 2.3 L, Globulin 3.2, Albumin/Globulin Ratio 0.7 L, TSH 0.256 L 11/16/23 06:34: POC Glucose 124 H 11/16/23 11:04: POC Glucose 163 H Micro: Microbiology 11/16/23 04:51 Nasal Secretion MRSA (PCR) - Final Radiography Diagnostic Testing: Radiology Impression Chest X-Ray 11/16/23 04:53 IMPRESSION: Mild basilar atelectasis. Sternotomy changes. Electronically Signed: Satya eHrrera MD at 6:34 EDT Reading Location ID and State: [facility] / [place] Tel , Service support , Rhythm Strip Rhythm Strip: Sinus Rhythm Rate: 80 Ectopy: None Physical Exam Narrative General: Awakens to stimuli but tired, Oriented x2, Cooperative, No apparent distress HEENT: Atraumatic, PERRLA, EOMI, Normocephalic Oral: Moist Mucosa Neck: Supple, No JVD Lungs: Diminished, Normal air movement, No rhonchi, scattered wheeze, No rales Cardiovascular: Regular rate, Regular Rhythm, Normal S1, Normal S2, No murmurs Abdomen: Soft, Non Tender, Non-Distended, No Hepato-splenomegaly Extremities: Edema, Capillary Refill Less than 3 Seconds Skin: No rashes, No breakdown Musculoskeletal: No Tenderness to Palpation of Joints or Extremities Neurological: No focal neurological deficits Psych/Mental Status: Flat Assessment & Plan Assessment/Plan (1) Acute on chronic respiratory failure with hypoxemia: (2) COVID-19: PLAN: Plan #1. Adult FTT, Multifactorial, secondary to diagnoses noted below in addition to presentation primary diagnosis Acute Encephalopathy (Infectious/Hypoxemia associated) secondary to Acute on Chronic Hypoxic and Hypercarbic Respiratory Failure secondary to Recent Acute COVID-19 and Superimposed Pseudomonas aeruginosa pneumonia complicated by underlying Chronic COPD and Pulmonary fibrosis: Will admit to PCU, maintain on oxygen with wean as tolerated to his home oxygen supplementation 4 L nasal cannula, continue ATC budeosonide therapy, PRN albuterol, continue oral decadron therapy and oral Levaquin regimen recently recommended per infectious disease, given recent CTPA and CT of the head will not repeat as both of these were unremarkable, ABG not severe appearing but did have mild CO2 elevation however pH not marked, hypoxia evident, maintain on fall and aspiration precautions, given representation likely would benefit from consideration of transitional care/skilled facility placement, PT/OT/casement consulted for discharge planning. 11/15/2023: Continue with Decadron for a few more days, end date would be 11/18/2023 since he was on Decadron on the previous admission recently. He can be taken out of precautions also 11/18/2023 as his positive COVID test was on 11/09/2023 11/16/2023: Continue with antibiotics and steroids 2. NSTEMI type II/CAD status post stent/chronic systolic CHF/essential HTN/HLD/new onset A-fib ? Stress test in the beginning of October did not show any reversible perfusion defects ? Troponins are trending downward no further workup indicated during this admission ? He had an echo on 09/04/2023 with an EF of 25% mildly dilated LV with severe global hypokinesis and a PASP of 30 mmHg ? Continue with his home blood pressure medications as well as his diuretic ? Not a candidate for anticoagulation secondary to a history of recurrent GI bleeds as well as iron deficiency anemia 3. DM2 ? Will hold his oral regimen ? Continue with long-acting and sliding scale insulin ? Accu-Cheks ACHS ? Will monitor make adjustments as necessary 4. 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 The AVMs are likely related to his rheumatoid arthritis ? Continue with PPI ? Has an IVC filter in place 5. Anxiety/depression ? Stable ? Continue with his home medications 6. BPH ? Stable ? Continue with his home medications DVT: Lovenox Charges/Coding Visit Charges Inpatient E&M: 78654 Subs Hosp L2
[2023-11-16] MEDS: Insulin Lispro 100 UNIT/ML INSULN.PEN 10 UNIT SC (16:38)
[2023-11-16] MEDS: Vancomycin IV 1,000 MG/200 ML BAG 200 MG IV (16:42)
[2023-11-16 17:17] LABS: Bedside Glucose 292 mg/dL (74-106)
[2023-11-16] MEDS: Atorvastatin Calcium 20 MG Tablet PO (21:54)
[2023-11-16] MEDS: Mirtazapine 15 MG Tablet 7.5 MG PO (21:54)
[2023-11-16] MEDS: Tamsulosin HCl 0.4 MG Capsule PO (21:55)
[2023-11-16] MEDS: Senna/Docusate Sodium 1 Tablet 2 TABLET PO (22:15)
[2023-11-16 22:38] LABS: Bedside Glucose 211 mg/dL (74-106)
[2023-11-17] VITALS (8 sets, daily range): BP systolic 94–120; BP diastolic 66–89; PULSE 88–138; RESP 16–29; TEMP 36.7–37.3; O2SAT 96–100; BMI 27.0
[2023-11-17] MEDS: Menthol/Lanolin/Calamine/Znox 113 GM Tube 1 APPLIC TOPICAL (06:06)
[2023-11-17] MEDS: Piperacil/Tazobactam 3.375 GM in 0.9% Normal Saline (50mL MB+) 50 ML IV ×3 (06:06→21:01)
[2023-11-17] MEDS: Vancomycin IV 1,000 MG/200 ML BAG 200 MG IV (06:06)
[2023-11-17 06:50] LABS: Bedside Glucose 103 mg/dL (74-106)
[2023-11-17 07:20] LABS: Absolute Lymphocyte Count 0.72 X10^3/uL (0.83-4.51); Absolute Neutrophil Count 11.5 X10^3/uL (2.0-7.7); Basophil# 0.05 X10^3/uL; Basophil% 0.4 % (0-1); Eosinophil# 0.08 X10^3/uL; Eosinophils% 0.6 % (0-5); Hematocrit 30.2 % (40-54); Hemoglobin 9.3 g/dL (13.0-16.5); Lymphocyte # 0.72 X10^3/ul (0.83-4.51); Lymphocyte % 5.3 % (19-41); Mean Corp Hgb Conc 30.8 g/dL (32-36); Mean Corpuscular Hgb 31.2 pg (27.0-32.0); Mean Corpuscular Volume 101.3 fL (80-94); Mean Platelet Vol. 11.2 fl (6.2-12.0); Monocyte# 0.89 X10^3/uL; Monocyte% 6.6 % (0-10); NRBC Flagged by Analyzer 0.1 % (0-5); Neutrophil # 11.47 X10^3/uL (2.7-7.7); Neutrophil % 84.7 % (47-70); Platelet Count 213 K/mm3 (150-450); RBC Distribution Width CV 15.7 % (11.6-14.6); RBC Distribution Width SD 58.2 fl (35.1-43.9); Red Blood Count 2.98 M/mm3 (4.6-6.2); White Blood Count 13.5 K/mm3 (4.4-11.0)
[2023-11-17] MEDS: guaiFENesin/D-Methorphan TAB.SR.12H 2 TABLET PO ×2 (08:03→20:48)
[2023-11-17] MEDS: Finasteride 5 MG Tablet PO (08:03)
[2023-11-17] MEDS: Enoxaparin 30 MG/0.3 ML Syringe SC ×2 (08:03→20:48)
[2023-11-17] MEDS: Furosemide 20 MG Tablet PO (08:03)
[2023-11-17] MEDS: Aspirin 81 MG TAB.CHEW PO (08:03)
[2023-11-17] MEDS: Carvedilol 3.125 MG TABLET PO ×2 (08:03→20:47)
[2023-11-17] MEDS: Budesonide Respules 0.5 MG/2 ML AMPUL.NEB. INHALATION ×2 (08:04→20:05)
[2023-11-17 08:06] LABS: ALB/GLOB Ratio 0.6 RATIO (0.9-2.4); AST(SGOT) 20 U/L (15-37); Alanine Aminotransfer ALT/SGPT 20 U/L (16-61); Albumin, Serum 2.3 g/dL (3.2-5.0); Alkaline Phosphatase 46 U/L (45-117); Anion Gap 7 (5-15); BUN 48 mg/dL (7-18); BUN/Creat Ratio 31.4 RATIO (10-20); Calcium,Total 8.7 mg/dL (8.5-10.1); Chloride 109 mmol/L (98-107); Creatinine, Serum 1.53 mg/dL (0.70-1.30); EST Glomerular Filtration Rate 48 mL/min (>60); Est Glom Filt Rate - Afr Amer 58 mL/min (>60); Estimated Creatinine Clearance 47.87 ml/min; Globulin 3.6 g/dL (2.2-4.2); Glucose 140 mg/dL (74-106); Protein, Total 5.9 g/dL (6.4-8.2); Sodium Level 142 mmol/L (136-145)
[2023-11-17] MEDS: Pantoprazole Sodium 40 MG in 0.9% Normal Saline (100mL MB+) 100 ML 330 MG IV ×2 (08:06→20:38)
[2023-11-17] MEDS: Nystatin Powder 15gm Bottle 1 APPLIC TOPICAL (08:06)
--- NOTE | 2023-11-17 09:53 | CASEMGMT ---
Discharge Planning A list of SNF providers including quality and resource use data and consistent with the patient's preferred geographic region, medical needs, and insurance network was created in [facility]Port Guide.? This list was provided to the TYE. Batool Zeng Discharge Planning Asst
[2023-11-17] MEDS: 0.9% Saline Lock 10 ML Syringe IV (10:04)
[2023-11-17] MEDS: dexAMETHasone 10 MG/ML Vial 6 MG IV (10:04)
[2023-11-17 12:02] LABS: Bedside Glucose 151 mg/dL (74-106)
[2023-11-17] MEDS: Escitalopram Oxalate 10 MG Tablet PO (12:07)
[2023-11-17] MEDS: Ferrous Sulfate 325 MG Tablet PO (12:08)
--- NOTE | 2023-11-17 15:21 | EKG12_ITS ---
Test Reason : Blood Pressure : / mmHG Vent. Rate : 131 BPM Atrial Rate : 131 BPM P-R Int : 168 ms QRS Dur : 118 ms QT Int : 304 ms P-R-T Axes : 076 058 060 degrees QTc Int : 448 ms Sinus tachycardia Non-specific intra-ventricular conduction delay Borderline ECG When compared with ECG of 15-NOV-2023 19:51, Sinus rhythm has replaced Atrial flutter Vent. rate has increased BY 46 BPM Confirmed by Mekhi Garcia ([id number]), news assignment editor AVINASH MARTINEZ ([id number]) on 11/19/2023 5:27:08 AM Referred By: MICHEL Confirmed By:Mekhi Garcia
--- NOTE | 2023-11-17 17:09 | PCM.PN.HOSP ---
Subjective Subjective Delete that no issues overnight. Still hesitant to go to a skilled nursing Objective Data Objective Data Vital Signs: Vital Signs Temp Pulse Resp BP Pulse Ox O2 Del Method O2 Flow Rate 98.1 F 98 18 120/66 98 Nasal Cannula 4 11/17/23 12:00 11/17/23 12:00 11/17/23 12:00 11/17/23 12:00 11/17/23 12:00 11/17/23 12:00 11/17/23 15:22 Oxygen Flow Rate (L/min) 4 Oxygen Delivery Method Nasal Cannula Weight: 205 lb 0.478 oz Body Mass Index (BMI) 27.0 Intake & Output: Intake and Output for Last 24 Hours 11/16/23 11/17/23 11/18/23 03:59 03:59 03:59 Intake Total 1240 / 1240 1660 / 1660 410 / 410 Output Total 700 / 700 1300 / 1300 850 / 850 Balance 540 / 540 360 / 360 -440 / -440 Lab / Micro Data 11/17/23 06:58 11/17/23 06:58 Labs: Laboratory Results - last 24 hr 11/16/23 16:36: POC Glucose 292 H 11/16/23 21:49: POC Glucose 211 H 11/17/23 06:02: POC Glucose 103 11/17/23 06:58: WBC 13.5 H, RBC 2.98 L, Hgb 9.3 L, Hct 30.2 L, MCV 101.3 H, MCH 31.2, MCHC 30.8 L, RDW Std Deviation 58.2 H, RDW Coeff of Rafael 15.7 H, Plt Count 213, MPV 11.2, Immature Gran % (Auto) 2.400 H, Neut % (Auto) 84.7 H, Lymph % (Auto) 5.3 L, [place] % (Auto) 6.6, Eos % (Auto) 0.6, Baso % (Auto) 0.4, Absolute Neuts (auto) 11.5 H, Absolute Lymphs (auto) 0.72 L, Nucleated RBC % 0.1, Sodium 142, Potassium 4.0, Chloride 109 H, Carbon Dioxide 26.0, Anion Gap 7, BUN 48 H, Creatinine 1.53 H, Estim Creat Clear Calc 47.87, Est GFR (MDRD) Af Amer 58 L, Est GFR (MDRD) Non-Af 48 L, BUN/Creatinine Ratio 31.4 H, Glucose 140 H, Calcium 8.7, Total Bilirubin 0.70, AST 20, ALT 20, Alkaline Phosphatase 46, Total Protein 5.9 L, Albumin 2.3 L, Globulin 3.6, Albumin/Globulin Ratio 0.6 L 11/17/23 11:43: POC Glucose 151 H Micro: Microbiology 11/16/23 08:52 Sputum, Expectorated/Coughed Gram Stain - Final 11/16/23 04:51 Nasal Secretion MRSA (PCR) - Final Rhythm Strip Rhythm Strip: Sinus Rhythm Rate: 80 Ectopy: None Physical Exam Narrative General: Awakens to stimuli but tired, Oriented x2, Cooperative, No apparent distress HEENT: Atraumatic, PERRLA, EOMI, Normocephalic Oral: Moist Mucosa Neck: Supple, No JVD Lungs: Diminished, Normal air movement, No rhonchi, scattered wheeze, No rales Cardiovascular: Regular rate, Regular Rhythm, Normal S1, Normal S2, No murmurs Abdomen: Soft, Non Tender, Non-Distended, No Hepato-splenomegaly Extremities: Edema, Capillary Refill Less than 3 Seconds Skin: No rashes, No breakdown Musculoskeletal: No Tenderness to Palpation of Joints or Extremities Neurological: No focal neurological deficits Psych/Mental Status: Flat Assessment & Plan Assessment/Plan (1) Acute on chronic respiratory failure with hypoxemia: (2) COVID-19: PLAN: Plan #1. Adult FTT, Multifactorial, secondary to diagnoses noted below in addition to presentation primary diagnosis Acute Encephalopathy (Infectious/Hypoxemia associated) secondary to Acute on Chronic Hypoxic and Hypercarbic Respiratory Failure secondary to Recent Acute COVID-19 and Superimposed Pseudomonas aeruginosa pneumonia complicated by underlying Chronic COPD and Pulmonary fibrosis: Will admit to PCU, maintain on oxygen with wean as tolerated to his home oxygen supplementation 4 L nasal cannula, continue ATC budeosonide therapy, PRN albuterol, continue oral decadron therapy and oral Levaquin regimen recently recommended per infectious disease, given recent CTPA and CT of the head will not repeat as both of these were unremarkable, ABG not severe appearing but did have mild CO2 elevation however pH not marked, hypoxia evident, maintain on fall and aspiration precautions, given representation likely would benefit from consideration of transitional care/skilled facility placement, PT/OT/casement consulted for discharge planning. 11/15/2023: Continue with Decadron for a few more days, end date would be 11/18/2023 since he was on Decadron on the previous admission recently. He can be taken out of precautions also 11/18/2023 as his positive COVID test was on 11/09/2023 11/16/2023: Continue with antibiotics and steroids 11/17/2023: Sputum cultures are negative here with no growth we will continue with Zosyn at this time to treat the previous Pseudomonas on 11/10/2023 2. NSTEMI type II/CAD status post stent/chronic systolic CHF/essential HTN/HLD/new onset A-fib ? Stress test in the beginning of October did not show any reversible perfusion defects ? Troponins are trending downward no further workup indicated during this admission ? He had an echo on 09/04/2023 with an EF of 25% mildly dilated LV with severe global hypokinesis and a PASP of 30 mmHg ? Continue with his home blood pressure medications as well as his diuretic ? Not a candidate for anticoagulation secondary to a history of recurrent GI bleeds as well as iron deficiency anemia 3. DM2 ? Will hold his oral regimen ? Continue with long-acting and sliding scale insulin ? Accu-Cheks ACHS ? Will monitor make adjustments as necessary 4. 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 The AVMs are likely related to his rheumatoid arthritis ? Continue with PPI ? Has an IVC filter in place 5. Anxiety/depression ? Stable ? Continue with his home medications 6. BPH ? Stable ? Continue with his home medications DVT: Lovenox Charges/Coding Visit Charges Inpatient E&M: 70910 Subs Hosp L2
[2023-11-17] MEDS: Insulin Lispro 100 UNIT/ML INSULN.PEN SC ×2 (17:23→20:52)
[2023-11-17] MEDS: Vancomycin Trough/Random Due 1 LAB MC (17:24)
[2023-11-17] MEDS: Insulin Lispro 100 UNIT/ML INSULN.PEN 10 UNIT SC (17:24)
[2023-11-17 17:40] LABS: Vancomycin, Trough Level 21.7 ug/mL (5.0-15.0)
[2023-11-17 17:44] LABS: Bedside Glucose 418 mg/dL (74-106)
--- NOTE | 2023-11-17 18:16 | PCM.RX.CS ---
Consult Antibiotic Management Pharmacy has been consulted to manage selected antibiotic: Vancomycin Type of Intervention Type of Consult: Follow-up Suspected Infection Suspected Infection: Pneumonia Prior Doses of Antibiotics Prior Doses of Antibiotics Received/Current Regimen: Vancomycin 1000 mg Q12H, last dose 11/17/23 @ 0606 Labs Labs: Sodium 142 mmol/L (136-145) 11/17/23 06:58 Potassium 4.0 mmol/L (3.5-5.1) 11/17/23 06:58 Chloride 109 mmol/L (98-107) H 11/17/23 06:58 Carbon Dioxide 26.0 mmol/L (21.0-32.0) 11/17/23 06:58 Anion Gap 7 (5-15) 11/17/23 06:58 BUN 48 mg/dL (7-18) H 11/17/23 06:58 Creatinine 1.53 mg/dL (0.70-1.30) H 11/17/23 06:58 Est GFR (MDRD) Af Amer 58 mL/min (>60) L 11/17/23 06:58 Est GFR (MDRD) Non-Af 48 mL/min (>60) L 11/17/23 06:58 BUN/Creatinine Ratio 31.4 RATIO (10-20) H 11/17/23 06:58 Glucose 140 mg/dL (74-106) H 11/17/23 06:58 Vancomycin Trough 21.7 ug/mL (5.0-15.0) H 11/17/23 17:04 Microbiology Microbiology: Microbiology 11/16/23 08:52 Sputum, Expectorated/Coughed Gram Stain - Final 11/16/23 04:51 Nasal Secretion MRSA (PCR) - Final Dosing Weight Weight used for dosin kg Estimated Creatinine Clearance Estimated Creatinine Clearance: ~48 Goal Trough Goal Trough: 15-20 mcg/mL Pharmacy Plan for Drug Dosing Pharmacy Plan for Drug Dosing: Vancomycin trough 21.7, will decrease to 750 mg Q12H. Pharmacy Service will continue to monitor and adjust dosing as required. Follow-Up Labs Follow-Up Labs: Trough: Vancomycin Date/Time Labs Ordered Labs to be done on [date and time ordered]: 11/19/23 @ 0630
--- NOTE | 2023-11-17 18:17 | NURSING ---
Per patient report he was initially symptomatic 9-13. Per RN this means patient can come out of isolation per MD if MD approves. MD messaged and approved removal of isolation.
[2023-11-17] MEDS: Vancomycin HCl 750 MG in 0.9% Normal Saline (250mL Bag) 250 ML 250 MG IV (19:04)
[2023-11-17] MEDS: Tamsulosin HCl 0.4 MG Capsule PO (20:47)
[2023-11-17] MEDS: Mirtazapine 15 MG Tablet 7.5 MG PO (20:48)
[2023-11-17] MEDS: Atorvastatin Calcium 20 MG Tablet PO (20:48)
[2023-11-17 23:16] LABS: Bedside Glucose 371 mg/dL (74-106)
[2023-11-18] VITALS (12 sets, daily range): BP systolic 112–138; BP diastolic 61–78; PULSE 68–119; RESP 14–28; TEMP 36.7–37.1; O2SAT 92–100; BMI 26.9
[2023-11-18] MEDS: Piperacil/Tazobactam 3.375 GM in 0.9% Normal Saline (50mL MB+) 50 ML IV ×3 (06:21→21:46)
[2023-11-18] MEDS: Menthol/Lanolin/Calamine/Znox 113 GM Tube 1 APPLIC TOPICAL ×3 (06:21→21:45)
[2023-11-18] MEDS: Vancomycin HCl 750 MG in 0.9% Normal Saline (250mL Bag) 250 ML 250 MG IV (06:21)
[2023-11-18] MEDS: 0.9% Saline Lock 10 ML Syringe IV ×3 (06:21→21:51)
[2023-11-18] MEDS: Budesonide Respules 0.5 MG/2 ML AMPUL.NEB. INHALATION ×2 (07:40→19:23)
[2023-11-18] MEDS: Insulin Lispro 100 UNIT/ML INSULN.PEN SC ×3 (09:20→22:01)
[2023-11-18] MEDS: Insulin Glargine-YFGN 100 UNIT/ML Pen 15 UNIT SC (09:21)
[2023-11-18] MEDS: Aspirin 81 MG TAB.CHEW PO (09:21)
[2023-11-18] MEDS: Carvedilol 3.125 MG TABLET PO ×2 (09:23→21:58)
[2023-11-18] MEDS: dexAMETHasone 10 MG/ML Vial 6 MG IV (09:23)
[2023-11-18] MEDS: Escitalopram Oxalate 10 MG Tablet PO (09:25)
[2023-11-18] MEDS: Furosemide 20 MG Tablet PO (09:25)
[2023-11-18] MEDS: Enoxaparin 30 MG/0.3 ML Syringe SC ×2 (09:25→21:46)
[2023-11-18] MEDS: guaiFENesin/D-Methorphan TAB.SR.12H 2 TABLET PO ×2 (09:26→21:47)
[2023-11-18] MEDS: Finasteride 5 MG Tablet PO (09:26)
[2023-11-18] MEDS: Insulin Lispro 100 UNIT/ML INSULN.PEN 10 UNIT SC ×2 (09:29→12:42)
[2023-11-18] MEDS: Pantoprazole Sodium 40 MG in 0.9% Normal Saline (100mL MB+) 100 ML 330 MG IV ×2 (09:33→21:45)
[2023-11-18 09:48] LABS: Bedside Glucose 190 mg/dL (74-106)
--- NOTE | 2023-11-18 10:33 | CASEMGMT ---
Therapy is recommending fpc facility for patient. This TYE and TYE Balderrama went to patient's room. Introduced selves and role at [facility]. SW explained therapy's recommendations and patient stated he would rather go home. SW asked patient if he is willing to go somewhere since this is being recommended and patient said, I would rather go home. TYE told patient we can see how he does with therapy today and go from there. Kesha Mueller [employer] MARY ANN
--- NOTE | 2023-11-18 10:46 | PCM.PN.HOSP ---
Subjective Subjective No changes overnight, will continue to work on getting him placed if possible. MRSA is negative and can likely discontinue vancomycin today. He is outside of precaution windows now for COVID Objective Data Objective Data Vital Signs: Vital Signs Temp Pulse Resp BP Pulse Ox O2 Del Method O2 Flow Rate 98.1 F 119 H 16 130/61 H 93 Nasal Cannula 2 11/18/23 09:06 11/18/23 09:08 11/18/23 09:08 11/18/23 09:06 11/18/23 09:06 11/18/23 09:08 11/18/23 09:08 FiO2 93 11/18/23 09:08 Oxygen Flow Rate (L/min) 2 Oxygen Delivery Method Nasal Cannula Weight: 203 lb 14.841 oz Body Mass Index (BMI) 26.9 Intake & Output: Intake and Output for Last 24 Hours 11/17/23 11/18/23 11/19/23 03:59 03:59 03:59 Intake Total 1660 / 1660 1605 / 1605 375 / 375 Output Total 1300 / 1300 1090 / 1090 Balance 360 / 360 515 / 515 375 / 375 Lab / Micro Data 11/17/23 06:58 11/17/23 06:58 Labs: Laboratory Results - last 24 hr 11/17/23 11:43: POC Glucose 151 H 11/17/23 17:04: Vancomycin Trough 21.7 H 11/17/23 17:22: POC Glucose 418 H 11/17/23 20:51: POC Glucose 371 H 11/18/23 09:18: POC Glucose 190 H Micro: Microbiology 11/16/23 08:52 Sputum, Expectorated/Coughed Gram Stain - Final 11/16/23 08:52 Sputum, Expectorated/Coughed Respiratory Culture - Final 11/16/23 05:25 Blood Culture (Wb) - Left Forearm Blood Culture - Preliminary No growth in 48 hours. 11/16/23 04:51 Nasal Secretion MRSA (PCR) - Final Rhythm Strip Rhythm Strip: Sinus Rhythm Rate: 80 Ectopy: None Physical Exam Narrative General: Awakens to stimuli but tired, Oriented x2, Cooperative, No apparent distress HEENT: Atraumatic, PERRLA, EOMI, Normocephalic Oral: Moist Mucosa Neck: Supple, No JVD Lungs: Diminished, Normal air movement, No rhonchi, scattered wheeze, No rales Cardiovascular: Regular rate, Regular Rhythm, Normal S1, Normal S2, No murmurs Abdomen: Soft, Non Tender, Non-Distended, No Hepato-splenomegaly Extremities: Edema, Capillary Refill Less than 3 Seconds Skin: No rashes, No breakdown Musculoskeletal: No Tenderness to Palpation of Joints or Extremities Neurological: No focal neurological deficits Psych/Mental Status: Flat Assessment & Plan Assessment/Plan (1) Acute on chronic respiratory failure with hypoxemia: (2) COVID-19: PLAN: Plan #1. Adult FTT, Multifactorial, secondary to diagnoses noted below in addition to presentation primary diagnosis Acute Encephalopathy (Infectious/Hypoxemia associated) secondary to Acute on Chronic Hypoxic and Hypercarbic Respiratory Failure secondary to Recent Acute COVID-19 and Superimposed Pseudomonas aeruginosa pneumonia complicated by underlying Chronic COPD and Pulmonary fibrosis: Will admit to PCU, maintain on oxygen with wean as tolerated to his home oxygen supplementation 4 L nasal cannula, continue ATC budeosonide therapy, PRN albuterol, continue oral decadron therapy and oral Levaquin regimen recently recommended per infectious disease, given recent CTPA and CT of the head will not repeat as both of these were unremarkable, ABG not severe appearing but did have mild CO2 elevation however pH not marked, hypoxia evident, maintain on fall and aspiration precautions, given representation likely would benefit from consideration of transitional care/skilled facility placement, PT/OT/casement consulted for discharge planning. 11/15/2023: Continue with Decadron for a few more days, end date would be 11/18/2023 since he was on Decadron on the previous admission recently. He can be taken out of precautions also 11/18/2023 as his positive COVID test was on 11/09/2023 11/16/2023: Continue with antibiotics and steroids 11/17/2023: Sputum cultures are negative here with no growth we will continue with Zosyn at this time to treat the previous Pseudomonas on 11/10/2023 11/18/2023: Discontinue vancomycin continue with PT/OT for possible placement 2. NSTEMI type II/CAD status post stent/chronic systolic CHF/essential HTN/HLD/new onset A-fib ? Stress test in the beginning of October did not show any reversible perfusion defects ? Troponins are trending downward no further workup indicated during this admission ? He had an echo on 09/04/2023 with an EF of 25% mildly dilated LV with severe global hypokinesis and a PASP of 30 mmHg ? Continue with his home blood pressure medications as well as his diuretic ? Not a candidate for anticoagulation secondary to a history of recurrent GI bleeds as well as iron deficiency anemia 3. DM2 ? Will hold his oral regimen ? Continue with long-acting and sliding scale insulin ? Accu-Cheks ACHS ? Will monitor make adjustments as necessary 4. 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 The AVMs are likely related to his rheumatoid arthritis ? Continue with PPI ? Has an IVC filter in place 5. Anxiety/depression ? Stable ? Continue with his home medications 6. BPH ? Stable ? Continue with his home medications DVT: Lovenox Charges/Coding Visit Charges Inpatient E&M: 61443 Subs Hosp L2
[2023-11-18] MEDS: Ferrous Sulfate 325 MG Tablet PO (12:42)
[2023-11-18 15:22] LABS: Bedside Glucose 203 mg/dL (74-106)
[2023-11-18 17:39] LABS: Bedside Glucose 87 mg/dL (74-106)
[2023-11-18] MEDS: Senna/Docusate Sodium 1 Tablet 2 TABLET PO (19:18)
[2023-11-18] MEDS: Tamsulosin HCl 0.4 MG Capsule PO (21:47)
[2023-11-18] MEDS: Atorvastatin Calcium 20 MG Tablet PO (21:47)
[2023-11-18] MEDS: Mirtazapine 15 MG Tablet 7.5 MG PO (21:47)
[2023-11-18 22:32] LABS: Bedside Glucose 215 mg/dL (74-106)
[2023-11-19] VITALS (7 sets, daily range): BP systolic 118–144; BP diastolic 68–83; PULSE 64–81; RESP 16–18; TEMP 36.3–37.6; O2SAT 92–98; BMI 28.5
[2023-11-19 07:04] LABS: Absolute Lymphocyte Count 0.53 X10^3/uL (0.83-4.51); Absolute Neutrophil Count 5.7 X10^3/uL (2.0-7.7); Basophil# 0.02 X10^3/uL; Basophil% 0.3 % (0-1); Eosinophil# 0.01 X10^3/uL; Eosinophils% 0.1 % (0-5); Hematocrit 25.7 % (40-54); Lymphocyte # 0.53 X10^3/ul (0.83-4.51); Lymphocyte % 7.6 % (19-41); Mean Corp Hgb Conc 31.1 g/dL (32-36); Mean Corpuscular Hgb 31.7 pg (27.0-32.0); Mean Platelet Vol. 11.3 fl (6.2-12.0); Monocyte# 0.57 X10^3/uL; Monocyte% 8.1 % (0-10); NRBC Flagged by Analyzer 0 % (0-5); Neutrophil # 5.72 X10^3/uL (2.7-7.7); Neutrophil % 81.6 % (47-70); POSITIVE DIFFERENTIAL YES; Platelet Count 193 K/mm3 (150-450); RBC Distribution Width CV 15.5 % (11.6-14.6); RBC Distribution Width SD 58.2 fl (35.1-43.9); Red Blood Count 2.52 M/mm3 (4.6-6.2)
[2023-11-19] MEDS: Budesonide Respules 0.5 MG/2 ML AMPUL.NEB. INHALATION ×2 (07:35→19:30)
[2023-11-19 07:40] LABS: Anion Gap 6 (5-15); BUN 50 mg/dL (7-18); BUN/Creat Ratio 29.8 RATIO (10-20); Calcium,Total 8.4 mg/dL (8.5-10.1); Chloride 112 mmol/L (98-107); Creatinine, Serum 1.68 mg/dL (0.70-1.30); EST Glomerular Filtration Rate 43 mL/min (>60); Est Glom Filt Rate - Afr Amer 52 mL/min (>60); Estimated Creatinine Clearance 47.52 ml/min; Glucose 208 mg/dL (74-106); Potassium 4.4 mmol/L (3.5-5.1); Sodium Level 142 mmol/L (136-145)
[2023-11-19] MEDS: Insulin Lispro 100 UNIT/ML INSULN.PEN 10 UNIT SC ×2 (09:04→12:33)
[2023-11-19] MEDS: Insulin Lispro 100 UNIT/ML INSULN.PEN SC ×3 (09:04→17:04)
[2023-11-19] MEDS: Insulin Glargine-YFGN 100 UNIT/ML Pen 15 UNIT SC (09:05)
[2023-11-19] MEDS: Aspirin 81 MG TAB.CHEW PO (09:33)
[2023-11-19] MEDS: Escitalopram Oxalate 10 MG Tablet PO (09:33)
[2023-11-19] MEDS: Enoxaparin 30 MG/0.3 ML Syringe SC ×2 (09:33→21:59)
[2023-11-19] MEDS: Finasteride 5 MG Tablet PO (09:33)
[2023-11-19] MEDS: guaiFENesin/D-Methorphan TAB.SR.12H 2 TABLET PO ×2 (09:33→21:59)
[2023-11-19] MEDS: Furosemide 20 MG Tablet PO (09:34)
[2023-11-19] MEDS: Carvedilol 3.125 MG TABLET PO ×2 (09:34→21:59)
[2023-11-19] MEDS: Nystatin Powder 15gm Bottle 1 APPLIC TOPICAL (09:34)
[2023-11-19] MEDS: Pantoprazole Sodium 40 MG in 0.9% Normal Saline (100mL MB+) 100 ML 330 MG IV ×2 (09:40→21:37)
--- NOTE | 2023-11-19 10:19 | CASEMGMT ---
TYE received a call from patient's son Ray. Ray said he spoke with patient about going somewhere and he thinks he is agreeable now. Ray said they were looking at [facility] and then he asked about [facility]. Ray said patient's is at [facility] and Ray's works there. Per Ray's they may be able to get a one time contract so patient could go there. TYE did tell Ray that usually if there are facilities in the area that take patient's insurance and will take patient insurance prefers they go with those facilities. TYE told him information can be sent to [facility] and see what they can find out. TYE asked Batool to send information to [facility]. TYE will also check with patient. Kesha REESE
--- NOTE | 2023-11-19 10:44 | CASEMGMT ---
Addendum entered by Batool Zeng 11/19/23 15:51: [facility] accepted and will submit for one time contract for precert. Batool Zeng DC Planning Asst. Original Note: Discharge Planning Referral sent to [facility] via [facility]Port. Batool Zeng DC Planning Asst.
--- NOTE | 2023-11-19 10:57 | CASEMGMT ---
This TYE and TYE Balderrama met with patient. TYE did notify patient that his son Ray called SW and was asking about patient going somewhere for rehab. Ray was asking if patient could go to [facility]. TYE explained that [facility] does not take his insurance, but it is possible that they could approve it one time. TYE did explain that SW cannot promise insurance will allow this. SW told patient a referral can be made and see what insurance has to say. Patient was agreeable to this. TYE did leave the list of SNF's in the room with patient in case CC does not work out. TYE did ask Batool to send a referral to [facility]. Kesha Mueller [employer]OUNTS COLLECTOR MARY ANN
[2023-11-19] MEDS: Senna/Docusate Sodium 1 Tablet 2 TABLET PO (11:34)
[2023-11-19] MEDS: Ferrous Sulfate 325 MG Tablet PO (11:34)
[2023-11-19 12:12] LABS: Bedside Glucose 301 mg/dL (74-106)
[2023-11-19 12:12] LABS: Bedside Glucose 199 mg/dL (74-106)
[2023-11-19] MEDS: Menthol/Lanolin/Calamine/Znox 113 GM Tube 1 APPLIC TOPICAL (13:40)
[2023-11-19] MEDS: Piperacil/Tazobactam 3.375 GM in 0.9% Normal Saline (50mL MB+) 50 ML IV ×2 (13:40→22:08)
[2023-11-19] MEDS: 0.9% Saline Lock 10 ML Syringe IV (13:40)
--- NOTE | 2023-11-19 13:50 | PN.HOSP_ITS ---
Subjective Subjective Feels little bit better, no issues overnight. Hemoglobin is down to 8, but this is not significantly altered from his baseline Objective Data Objective Data Vital Signs: Vital Signs Temp Pulse Resp BP Pulse Ox O2 Del Method O2 Flow Rate 97.4 F L 70 16 133/72 H 95 Nasal Cannula 3 11/19/23 09:31 11/19/23 09:31 11/19/23 09:31 11/19/23 09:31 11/19/23 10:44 11/19/23 09:31 11/19/23 13:22 FiO2 97 11/18/23 14:00 Oxygen Flow Rate (L/min) 3 Oxygen Delivery Method Nasal Cannula Weight: 215 lb 13.321 oz Body Mass Index (BMI) 28.5 Intake & Output: Intake and Output for Last 24 Hours 11/18/23 11/19/23 11/20/23 03:59 03:59 03:59 Intake Total 1605 / 1605 634.58 / 634.58 110 / 110 Output Total 1090 / 1090 Balance 515 / 515 634.58 / 634.58 110 / 110 Lab / Micro Data 11/19/23 05:25 11/19/23 05:25 Labs: Laboratory Results - last 24 hr 11/18/23 12:37: POC Glucose 203 H 11/18/23 17:09: POC Glucose 87 11/18/23 22:00: POC Glucose 215 H 11/19/23 05:25: WBC 7.0, RBC 2.52 L, Hgb 8.0 L, Hct 25.7 L, MCV 102.0 H, MCH 31.7, MCHC 31.1 L, RDW Std Deviation 58.2 H, RDW Coeff of Rafael 15.5 H, Plt Count 193, MPV 11.3, Immature Gran % (Auto) 2.300 H, Neut % (Auto) 81.6 H, Lymph % (Auto) 7.6 L, [place] % (Auto) 8.1, Eos % (Auto) 0.1, Baso % (Auto) 0.3, Absolute Neuts (auto) 5.7, Absolute Lymphs (auto) 0.53 L, Nucleated RBC % 0, Sodium 142, Potassium 4.4, Chloride 112 H, Carbon Dioxide 24.0, Anion Gap 6, BUN 50 H, C reatinine 1.68 H, Estim Creat Clear Calc 47.52, Est GFR (MDRD) Af Amer 52 L, Est GFR (MDRD) Non-Af 43 L, BUN/Creatinine Ratio 29.8 H, Glucose 208 H, Calcium 8.4 L 11/19/23 08:08: POC Glucose 199 H 11/19/23 11:37: POC Glucose 301 H Micro: Microbiology 11/16/23 08:52 Sputum, Expectorated/Coughed Gram Stain - Final 11/16/23 08:52 Sputum, Expectorated/Coughed Respiratory Culture - Final 11/16/23 05:25 Blood Culture (Wb) - Left Forearm Blood Culture - Preliminary No growth in 48 hours. 11/16/23 04:51 Nasal Secretion MRSA (PCR) - Final Rhythm Strip Rhythm Strip: Sinus Rhythm Rate: 80 Ectopy: None Physical Exam Narrative General: Alert, Oriented x2, Cooperative, No apparent distress HEENT: Atraumatic, PERRLA, EOMI, Normocephalic Oral: Moist Mucosa Neck: Supple, No JVD Lungs: Diminished, Normal air movement, No rhonchi, scattered wheeze, No rales Cardiovascular: Regular rate, Regular Rhythm, Normal S1, Normal S2, No murmurs Abdomen: Soft, Non Tender, Non-Distended, No Hepato-splenomegaly Extremities: Edema, Capillary Refill Less than 3 Seconds Skin: No rashes, No breakdown Musculoskeletal: No Tenderness to Palpation of Joints or Extremities Neurological: No focal neurological deficits Psych/Mental Status: Flat Assessment & Plan Assessment/Plan (1) Acute on chronic respiratory failure with hypoxemia: (2) COVID-19: PLAN: Plan #1. Adult FTT, Multifactorial, secondary to diagnoses noted below in addition to presentation primary diagnosis Acute Encephalopathy (Infectious/Hypoxemia associated) secondary to Acute on Chronic Hypoxic and Hypercarbic Respiratory Failure secondary to Recent Acute COVID-19 and Superimposed Pseudomonas aeruginosa pneumonia complicated by underlying Chronic COPD and Pulmonary fibrosis: Will admit to PCU, maintain on oxygen with wean as tolerated to his home oxygen supplementation 4 L nasal cannula, continue ATC budeosonide therapy, PRN albuterol, continue oral decadron therapy and oral Levaquin regimen recently recommended per infectious disease, given recent CTPA and CT of the head will not repeat as both of these were unremarkable, ABG not severe appearing but did have mild CO2 elevation however pH not marked, hypoxia evident, maintain on fall and aspiration precautions, given representation likely would benefit from consideration of transitional care/skilled facility placement, PT/OT/casement consulted for discharge planning. 11/15/2023: Continue with Decadron for a few more days, end date would be 11/18/2023 since he was on Decadron on the previous admission recently. He can be taken out of precautions also 11/18/2023 as his positive COVID test was on 11/09/2023 11/16/2023: Continue with antibiotics and steroids 11/17/2023: Sputum cultures are negative here with no growth we will continue with Zosyn at this time to treat the previous Pseudomonas on 11/10/2023 11/18/2023: Discontinue vancomycin continue with PT/OT for possible placement 11/19/2023: Will likely discontinue Zosyn tomorrow 2. NSTEMI type II/CAD status post stent/chronic systolic CHF/essential HTN/HLD/new onset A-fib ? Stress test in the beginning of October did not show any reversible perfusion defects ? Troponins are trending downward no further workup indicated during this admission ? He had an echo on 09/04/2023 with an EF of 25% mildly dilated LV with severe global hypokinesis and a PASP of 30 mmHg ? Continue with his home blood pressure medications as well as his diuretic ? Not a candidate for anticoagulation secondary to a history of recurrent GI bleeds as well as iron deficiency anemia 3. DM2 ? Will hold his oral regimen ? Continue with long-acting and sliding scale insulin ? Accu-Cheks ACHS ? Will monitor make adjustments as necessary 4. 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 The AVMs are likely related to his rheumatoid arthritis ? Continue with PPI ? Has an IVC filter in place 5. Anxiety/depression ? Stable ? Continue with his home medications 6. BPH ? Stable ? Continue with his home medications DVT: Lovenox Charges/Coding Visit Charges Inpatient E&M: 15502 Subs Hosp L2
--- NOTE | 2023-11-19 15:19 | CASEMGMT ---
[facility] has accepted patient. SW asked that they check with [facility] to see if they can get a one time contract since patient's is at [facility]. Kesha REESE
[2023-11-19] MEDS: Polyethylene Glycol 3350 17 GM PACKET PO (16:11)
[2023-11-19 16:56] LABS: Bedside Glucose 244 mg/dL (74-106)
[2023-11-19] MEDS: Insulin Lispro 100 UNIT/ML INSULN.PEN 15 UNIT SC (17:04)
[2023-11-19] MEDS: Atorvastatin Calcium 20 MG Tablet PO (21:59)
[2023-11-19] MEDS: Tamsulosin HCl 0.4 MG Capsule PO (21:59)
[2023-11-19] MEDS: Mirtazapine 15 MG Tablet 7.5 MG PO (21:59)
[2023-11-19 23:20] LABS: Bedside Glucose 90 mg/dL (74-106)
[2023-11-20] VITALS (7 sets, daily range): BP systolic 106–129; BP diastolic 59–103; PULSE 67–77; RESP 16–18; TEMP 36.2–37.1; O2SAT 93–97; BMI 28.3
[2023-11-20] MEDS: Piperacil/Tazobactam 3.375 GM in 0.9% Normal Saline (50mL MB+) 50 ML IV (05:50)
[2023-11-20 05:55] LABS: Absolute Lymphocyte Count 0.96 X10^3/uL (0.83-4.51); Absolute Neutrophil Count 7.1 X10^3/uL (2.0-7.7); Basophil# 0.02 X10^3/uL; Basophil% 0.2 % (0-1); Eosinophil# 0.19 X10^3/uL; Eosinophils% 2.1 % (0-5); Hematocrit 26.7 % (40-54); Hemoglobin 8.5 g/dL (13.0-16.5); Lymphocyte # 0.96 X10^3/ul (0.83-4.51); Lymphocyte % 10.6 % (19-41); Mean Corp Hgb Conc 31.8 g/dL (32-36); Mean Corpuscular Hgb 31.7 pg (27.0-32.0); Mean Corpuscular Volume 99.6 fL (80-94); Mean Platelet Vol. 10.7 fl (6.2-12.0); Monocyte# 0.64 X10^3/uL; Monocyte% 7.1 % (0-10); NRBC Flagged by Analyzer 0 % (0-5); Neutrophil # 7.05 X10^3/uL (2.7-7.7); Neutrophil % 78.2 % (47-70); Platelet Count 224 K/mm3 (150-450); RBC Distribution Width CV 15.5 % (11.6-14.6); RBC Distribution Width SD 56.8 fl (35.1-43.9); Red Blood Count 2.68 M/mm3 (4.6-6.2)
[2023-11-20 06:13] LABS: Bedside Glucose 93 mg/dL (74-106)
[2023-11-20 06:18] LABS: Anion Gap 6 (5-15); BUN 54 mg/dL (7-18); BUN/Creat Ratio 29.5 RATIO (10-20); Calcium,Total 8.6 mg/dL (8.5-10.1); Chloride 113 mmol/L (98-107); Creatinine, Serum 1.83 mg/dL (0.70-1.30); EST Glomerular Filtration Rate 39 mL/min (>60); Est Glom Filt Rate - Afr Amer 47 mL/min (>60); Estimated Creatinine Clearance 43.55 ml/min; Glucose 108 mg/dL (74-106); Potassium 3.7 mmol/L (3.5-5.1); Sodium Level 143 mmol/L (136-145)
[2023-11-20] MEDS: Budesonide Respules 0.5 MG/2 ML AMPUL.NEB. INHALATION ×2 (07:00→19:55)
[2023-11-20] MEDS: Polyethylene Glycol 3350 17 GM PACKET PO (08:34)
[2023-11-20] MEDS: Aspirin 81 MG TAB.CHEW PO (08:35)
[2023-11-20] MEDS: Acetaminophen 325 MG Tablet 650 MG PO (08:36)
--- NOTE | 2023-11-20 08:38 | CASEMGMT ---
TYE was informed that patient would like to talk with SW as he has had a change of heart. This TYE and TYE Balderrama met with patient. Patient stated he wants to go to [facility] not [facility]. SW let patient know a referral will be made to [facility]. TYE asked Batool to please cancel the referral with [facility]. Kesha Mueller GEAR GENERATOR SET UP OPERATOR MARY ANN
[2023-11-20 09:40] LABS: Bedside Glucose 117 mg/dL (74-106)
[2023-11-20] MEDS: Escitalopram Oxalate 10 MG Tablet PO (10:15)
[2023-11-20] MEDS: guaiFENesin/D-Methorphan TAB.SR.12H 2 TABLET PO ×2 (10:15→22:03)
[2023-11-20] MEDS: Finasteride 5 MG Tablet PO (10:15)
[2023-11-20] MEDS: Enoxaparin 30 MG/0.3 ML Syringe SC (10:15)
[2023-11-20] MEDS: Carvedilol 3.125 MG TABLET PO ×2 (10:15→21:54)
[2023-11-20] MEDS: Pantoprazole Sodium 40 MG in 0.9% Normal Saline (100mL MB+) 100 ML 330 MG IV ×2 (11:09→21:50)
[2023-11-20] MEDS: 0.9% Saline Lock 10 ML Syringe IV ×2 (11:09→21:47)
--- NOTE | 2023-11-20 12:24 | CASEMGMT ---
Discharge Planning [facility]. Batool Zeng DC Planning Asst.
[2023-11-20] MEDS: Insulin Glargine-YFGN 100 UNIT/ML Pen 15 UNIT SC (12:46)
[2023-11-20] MEDS: Insulin Lispro 100 UNIT/ML INSULN.PEN SC ×2 (12:46→17:09)
[2023-11-20] MEDS: Ferrous Sulfate 325 MG Tablet PO (12:47)
--- NOTE | 2023-11-20 12:54 | PN.HOSP_ITS ---
Subjective Subjective No issues overnight, feeling close to baseline Objective Data Objective Data Vital Signs: Vital Signs Temp Pulse Resp BP Pulse Ox O2 Del Method O2 Flow Rate 97.2 F L 74 18 129/103 H 93 Nasal Cannula 3 11/20/23 10:15 11/20/23 10:15 11/20/23 10:15 11/20/23 10:15 11/20/23 10:15 11/20/23 10:15 11/20/23 11:21 FiO2 97 11/18/23 14:00 Oxygen Flow Rate (L/min) 3 Oxygen Delivery Method Nasal Cannula Weight: 214 lb 15.211 oz Body Mass Index (BMI) 28.3 Intake & Output: Intake and Output for Last 24 Hours 11/19/23 11/20/23 11/21/23 03:59 03:59 03:59 Intake Total 634.58 / 634.58 320 / 320 50 / 50 Output Total 1050 / 1050 200 / 200 Balance 634.58 / 634.58 -730 / -730 -150 / -150 Lab / Micro Data 11/20/23 05:38 11/20/23 05:38 Labs: Laboratory Results - last 24 hr 11/19/23 16:09: POC Glucose 244 H 11/19/23 21:47: POC Glucose 90 11/20/23 05:38: WBC 9.0, RBC 2.68 L, Hgb 8.5 L, Hct 26.7 L, MCV 99.6 H, MCH 31.7, MCHC 31.8 L, RDW Std Deviation 56.8 H, RDW Coeff of Rafael 15.5 H, Plt Count 224, MPV 10.7, Immature Gran % (Auto) 1.800 H, Neut % (Auto) 78.2 H, Lymph % (Auto) 10.6 L, [place] % (Auto) 7.1, Eos % (Auto) 2.1, Baso % (Auto) 0.2, Absolute Neuts (auto) 7.1, Absolute Lymphs (auto) 0.96, Nucleated RBC % 0, Sodium 143, Potassium 3.7, Chloride 113 H, Carbon Dioxide 24.0, Anion Gap 6, BUN 54 H, C reatinine 1.83 H, Estim Creat Clear Calc 43.55, Est GFR (MDRD) Af Amer 47 L, Est GFR (MDRD) Non-Af 39 L, BUN/Creatinine Ratio 29.5 H, Glucose 108 H, Calcium 8.6 11/20/23 05:48: POC Glucose 93 11/20/23 08:25: POC Glucose 117 H Micro: Microbiology 11/16/23 08:52 Sputum, Expectorated/Coughed Gram Stain - Final 11/16/23 08:52 Sputum, Expectorated/Coughed Respiratory Culture - Final 11/16/23 05:25 Blood Culture (Wb) - Left Forearm Blood Culture - Preliminary No growth in 48 hours. 11/16/23 04:51 Nasal Secretion MRSA (PCR) - Final Rhythm Strip Rhythm Strip: Sinus Rhythm Rate: 80 Ectopy: None Physical Exam Narrative General: Alert, Oriented x2, Cooperative, No apparent distress HEENT: Atraumatic, PERRLA, EOMI, Normocephalic Oral: Moist Mucosa Neck: Supple, No JVD Lungs: Diminished, Normal air movement, No rhonchi, scattered wheeze, No rales Cardiovascular: Regular rate, Regular Rhythm, Normal S1, Normal S2, No murmurs Abdomen: Soft, Non Tender, Non-Distended, No Hepato-splenomegaly Extremities: Edema, Capillary Refill Less than 3 Seconds Skin: No rashes, No breakdown Musculoskeletal: No Tenderness to Palpation of Joints or Extremities Neurological: No focal neurological deficits Psych/Mental Status: Flat Assessment & Plan Assessment/Plan (1) Acute on chronic respiratory failure with hypoxemia: (2) COVID-19: PLAN: Plan #1. Adult FTT, Multifactorial, secondary to diagnoses noted below in addition to presentation primary diagnosis Acute Encephalopathy (Infectious/Hypoxemia associated) secondary to Acute on Chronic Hypoxic and Hypercarbic Respiratory Failure secondary to Recent Acute COVID-19 and Superimposed Pseudomonas aeruginosa pneumonia complicated by underlying Chronic COPD and Pulmonary fibrosis: Will admit to PCU, maintain on oxygen with wean as tolerated to his home oxygen supplementation 4 L nasal cannula, continue ATC budeosonide therapy, PRN albuterol, continue oral decadron therapy and oral Levaquin regimen recently recommended per infectious disease, given recent CTPA and CT of the head will not repeat as both of these were unremarkable, ABG not severe appearing but did have mild CO2 elevation however pH not marked, hypoxia evident, maintain on fall and aspiration precautions, given representation likely would benefit from consideration of transitional care/skilled facility placement, PT/OT/casement consulted for discharge planning. 11/15/2023: Continue with Decadron for a few more days, end date would be 11/18/2023 since he was on Decadron on the previous admission recently. He can be taken out of precautions also 11/18/2023 as his positive COVID test was on 11/09/2023 11/16/2023: Continue with antibiotics and steroids 11/17/2023: Sputum cultures are negative here with no growth we will continue with Zosyn at this time to treat the previous Pseudomonas on 11/10/2023 11/18/2023: Discontinue vancomycin continue with PT/OT for possible placement 11/19/2023: Will likely discontinue Zosyn tomorrow 11/20/2023: Discontinue Zosyn, pending pre-CERT for SNF 2. NSTEMI type II/CAD status post stent/chronic systolic CHF/essential HTN/HLD/new onset A-fib ? Stress test in the beginning of October did not show any reversible perfusion defects ? Troponins are trending downward no further workup indicated during this admission ? He had an echo on 09/04/2023 with an EF of 25% mildly dilated LV with severe global hypokinesis and a PASP of 30 mmHg ? Continue with his home blood pressure medications as well as his diuretic ? Not a candidate for anticoagulation secondary to a history of recurrent GI bleeds as well as iron deficiency anemia 3. DM2 ? Will hold his oral regimen ? Continue with long-acting and sliding scale insulin ? Accu-Cheks ACHS ? Will monitor make adjustments as necessary 4. 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 The AVMs are likely related to his rheumatoid arthritis ? Continue with PPI ? Has an IVC filter in place 5. Anxiety/depression ? Stable ? Continue with his home medications 6. BPH ? Stable ? Continue with his home medications DVT: Lovenox Charges/Coding Visit Charges Inpatient E&M: 32300 Subs Hosp L2
[2023-11-20 13:07] LABS: Bedside Glucose 176 mg/dL (74-106)
--- NOTE | 2023-11-20 14:54 | CASEMGMT ---
[facility] said [facility] could take patient and they will submit for insurance approval. However, they are not sure patient will get approved as he declined to get out of bed today. Await response from insurance. plan: d/c to [facility] pending insurance approval. Kesha REESE
[2023-11-20] MEDS: Insulin Lispro 100 UNIT/ML INSULN.PEN 15 UNIT SC (17:09)
[2023-11-20 18:11] LABS: Bedside Glucose 196 mg/dL (74-106)
[2023-11-20] MEDS: Tamsulosin HCl 0.4 MG Capsule PO (21:52)
[2023-11-20] MEDS: Mirtazapine 15 MG Tablet 7.5 MG PO (21:53)
[2023-11-20] MEDS: Atorvastatin Calcium 20 MG Tablet PO (21:54)
[2023-11-21] VITALS (8 sets, daily range): BP systolic 97–114; BP diastolic 49–87; PULSE 66–88; RESP 16–20; TEMP 36.6–37.1; O2SAT 96–97; BMI 28.3
[2023-11-21 01:22] LABS: Bedside Glucose 73 mg/dL (74-106)
[2023-11-21] MEDS: Budesonide Respules 0.5 MG/2 ML AMPUL.NEB. INHALATION ×2 (07:28→19:10)
[2023-11-21 07:36] LABS: Bedside Glucose 74 mg/dL (74-106)
[2023-11-21 08:12] LABS: Anion Gap 6 (5-15); BUN 51 mg/dL (7-18); BUN/Creat Ratio 29.1 RATIO (10-20); Calcium,Total 8.7 mg/dL (8.5-10.1); Chloride 116 mmol/L (98-107); Creatinine, Serum 1.75 mg/dL (0.70-1.30); EST Glomerular Filtration Rate 41 mL/min (>60); Est Glom Filt Rate - Afr Amer 49 mL/min (>60); Glucose 77 mg/dL (74-106); Potassium 3.8 mmol/L (3.5-5.1); Sodium Level 143 mmol/L (136-145)
[2023-11-21] MEDS: Escitalopram Oxalate 10 MG Tablet PO (09:35)
[2023-11-21] MEDS: Aspirin 81 MG TAB.CHEW PO (09:35)
[2023-11-21] MEDS: guaiFENesin/D-Methorphan TAB.SR.12H 2 TABLET PO ×2 (09:35→22:06)
[2023-11-21] MEDS: Carvedilol 3.125 MG TABLET PO ×2 (09:35→22:07)
[2023-11-21] MEDS: Pantoprazole Sodium 40 MG Tablet PO ×2 (09:36→22:06)
[2023-11-21] MEDS: Enoxaparin 30 MG/0.3 ML Syringe SC (09:36)
[2023-11-21] MEDS: Finasteride 5 MG Tablet PO (09:36)
[2023-11-21] MEDS: Nystatin Powder 15gm Bottle 1 APPLIC TOPICAL (09:37)
[2023-11-21] MEDS: Insulin Lispro 100 UNIT/ML INSULN.PEN 15 UNIT SC ×2 (09:39→17:12)
[2023-11-21] MEDS: Insulin Glargine-YFGN 100 UNIT/ML Pen 15 UNIT SC (09:39)
[2023-11-21] MEDS: Ferrous Sulfate 325 MG Tablet PO (12:08)
[2023-11-21 12:30] LABS: Bedside Glucose 74 mg/dL (74-106)
[2023-11-21 16:31] LABS: Bedside Glucose 160 mg/dL (74-106)
[2023-11-21] MEDS: Menthol/Lanolin/Calamine/Znox 113 GM Tube 1 APPLIC TOPICAL (17:10)
[2023-11-21 17:35] LABS: Bedside Glucose 148 mg/dL (74-106)
--- NOTE | 2023-11-21 17:44 | PCM.PN.HOSP ---
Subjective Subjective Resting comfortably, no issues overnight Objective Data Objective Data Vital Signs: Vital Signs Temp Pulse Resp BP Pulse Ox O2 Del Method O2 Flow Rate 97.9 F 74 16 97/49 L 97 Nasal Cannula 3 11/21/23 16:27 11/21/23 16:27 11/21/23 16:27 11/21/23 16:27 11/21/23 16:27 11/21/23 16:32 11/21/23 16:32 FiO2 97 11/18/23 14:00 Oxygen Flow Rate (L/min) 3 Oxygen Delivery Method Nasal Cannula Weight: 214 lb 8.156 oz Body Mass Index (BMI) 28.3 Intake & Output: Intake and Output for Last 24 Hours 11/20/23 11/21/23 11/22/23 03:59 03:59 03:59 Intake Total 320 / 320 1190 / 1190 425 / 425 Output Total 1050 / 1050 500 / 500 650 / 650 Balance -730 / -730 690 / 690 -225 / -225 Lab / Micro Data 11/20/23 05:38 11/21/23 06:35 Labs: Laboratory Results - last 24 hr 11/20/23 17:07: POC Glucose 196 H 11/20/23 21:58: POC Glucose 73 L 11/21/23 06:22: POC Glucose 74 11/21/23 06:35: Sodium 143, Potassium 3.8, Chloride 116 H, Carbon Dioxide 21.0, Anion Gap 6, BUN 51 H, Creatinine 1.75 H, Estim Creat Clear Calc 45.50, Est GFR (MDRD) Af Amer 49 L, Est GFR (MDRD) Non-Af 41 L, BUN/Creatinine Ratio 29.1 H, Glucose 77, Calcium 8.7 11/21/23 12:06: POC Glucose 74 11/21/23 16:13: POC Glucose 160 H 11/21/23 17:10: POC Glucose 148 H Micro: Microbiology 11/16/23 05:25 Blood Culture (Wb) - Left Forearm Blood Culture - Final No growth in 5 days. 11/16/23 08:52 Sputum, Expectorated/Coughed Gram Stain - Final 11/16/23 08:52 Sputum, Expectorated/Coughed Respiratory Culture - Final 11/16/23 04:51 Nasal Secretion MRSA (PCR) - Final Rhythm Strip Rhythm Strip: Sinus Rhythm Rate: 80 Ectopy: None Physical Exam Narrative General: Alert, Oriented x3, Cooperative, No apparent distress HEENT: Atraumatic, PERRLA, EOMI, Normocephalic Oral: Moist Mucosa Neck: Supple, No JVD Lungs: Diminished, Normal air movement, No rhonchi, scattered wheeze, No rales Cardiovascular: Regular rate, Regular Rhythm, Normal S1, Normal S2, No murmurs Abdomen: Soft, Non Tender, Non-Distended, No Hepato-splenomegaly Extremities: Edema, Capillary Refill Less than 3 Seconds Skin: No rashes, No breakdown Musculoskeletal: No Tenderness to Palpation of Joints or Extremities Neurological: No focal neurological deficits Psych/Mental Status: Flat Assessment & Plan Assessment/Plan (1) Acute on chronic respiratory failure with hypoxemia: (2) COVID-19: PLAN: Plan #1. Adult FTT, Multifactorial, secondary to diagnoses noted below in addition to presentation primary diagnosis Acute Encephalopathy (Infectious/Hypoxemia associated) secondary to Acute on Chronic Hypoxic and Hypercarbic Respiratory Failure secondary to Recent Acute COVID-19 and Superimposed Pseudomonas aeruginosa pneumonia complicated by underlying Chronic COPD and Pulmonary fibrosis: Will admit to PCU, maintain on oxygen with wean as tolerated to his home oxygen supplementation 4 L nasal cannula, continue ATC budeosonide therapy, PRN albuterol, continue oral decadron therapy and oral Levaquin regimen recently recommended per infectious disease, given recent CTPA and CT of the head will not repeat as both of these were unremarkable, ABG not severe appearing but did have mild CO2 elevation however pH not marked, hypoxia evident, maintain on fall and aspiration precautions, given representation likely would benefit from consideration of transitional care/skilled facility placement, PT/OT/casement consulted for discharge planning. 11/15/2023: Continue with Decadron for a few more days, end date would be 11/18/2023 since he was on Decadron on the previous admission recently. He can be taken out of precautions also 11/18/2023 as his positive COVID test was on 11/09/2023 11/16/2023: Continue with antibiotics and steroids 11/17/2023: Sputum cultures are negative here with no growth we will continue with Zosyn at this time to treat the previous Pseudomonas on 11/10/2023 11/18/2023: Discontinue vancomycin continue with PT/OT for possible placement 11/19/2023: Will likely discontinue Zosyn tomorrow 11/20/2023: Discontinue Zosyn, pending pre-CERT for SNF 11/21/2023: Will continue with PT/OT, while awaiting pre-CERT for SNF 2. NSTEMI type II/CAD status post stent/chronic systolic CHF/essential HTN/HLD/new onset A-fib ? Stress test in the beginning of October did not show any reversible perfusion defects ? Troponins are trending downward no further workup indicated during this admission ? He had an echo on 09/04/2023 with an EF of 25% mildly dilated LV with severe global hypokinesis and a PASP of 30 mmHg ? Continue with his home blood pressure medications as well as his diuretic ? Not a candidate for anticoagulation secondary to a history of recurrent GI bleeds as well as iron deficiency anemia 3. DM2 ? Will hold his oral regimen ? Continue with long-acting and sliding scale insulin ? Accu-Cheks ACHS ? Will monitor make adjustments as necessary 4. 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 The AVMs are likely related to his rheumatoid arthritis ? Continue with PPI ? Has an IVC filter in place 5. Anxiety/depression ? Stable ? Continue with his home medications 6. BPH ? Stable ? Continue with his home medications DVT: Lovenox Charges/Coding Visit Charges Inpatient E&M: 98938 Subs Hosp L2
[2023-11-21] MEDS: Tamsulosin HCl 0.4 MG Capsule PO (22:05)
[2023-11-21] MEDS: Mirtazapine 15 MG Tablet 7.5 MG PO (22:07)
[2023-11-21] MEDS: Atorvastatin Calcium 20 MG Tablet PO (22:08)
[2023-11-21 23:21] LABS: Bedside Glucose 78 mg/dL (74-106)
[2023-11-22] VITALS (8 sets, daily range): BP systolic 90–149; BP diastolic 56–97; PULSE 50–75; RESP 16–20; TEMP 36.4–36.9; O2SAT 93–100; BMI 27.7
[2023-11-22 05:07] LABS: Absolute Lymphocyte Count 1.47 X10^3/uL (0.83-4.51); Absolute Neutrophil Count 4.6 X10^3/uL (2.0-7.7); Basophil# 0.04 X10^3/uL; Basophil% 0.6 % (0-1); Eosinophils% 2.9 % (0-5); Hematocrit 27.6 % (40-54); Hemoglobin 8.4 g/dL (13.0-16.5); Lymphocyte # 1.47 X10^3/ul (0.83-4.51); Lymphocyte % 21.1 % (19-41); Mean Corp Hgb Conc 30.4 g/dL (32-36); Mean Corpuscular Hgb 31.1 pg (27.0-32.0); Mean Corpuscular Volume 102.2 fL (80-94); Monocyte# 0.47 X10^3/uL; Monocyte% 6.7 % (0-10); NRBC Flagged by Analyzer 0 % (0-5); Neutrophil # 4.57 X10^3/uL (2.7-7.7); Neutrophil % 65.5 % (47-70); Platelet Count 230 K/mm3 (150-450); RBC Distribution Width CV 15.6 % (11.6-14.6); RBC Distribution Width SD 58.4 fl (35.1-43.9)
[2023-11-22 05:28] LABS: Anion Gap 4 (5-15); BUN 42 mg/dL (7-18); BUN/Creat Ratio 33.1 RATIO (10-20); Calcium,Total 8.5 mg/dL (8.5-10.1); Chloride 115 mmol/L (98-107); Creatinine, Serum 1.27 mg/dL (0.70-1.30); EST Glomerular Filtration Rate 59 mL/min (>60); Est Glom Filt Rate - Afr Amer 71 mL/min (>60); Estimated Creatinine Clearance 57.67 ml/min; Glucose 68 mg/dL (74-106); Potassium 3.6 mmol/L (3.5-5.1); Sodium Level 143 mmol/L (136-145)
[2023-11-22 06:43] LABS: Bedside Glucose 67 mg/dL (74-106)
[2023-11-22] MEDS: Budesonide Respules 0.5 MG/2 ML AMPUL.NEB. INHALATION ×2 (07:52→18:55)
[2023-11-22] MEDS: Albuterol 2.5 MG/3 ML VIAL.NEB. INHALATION (07:52)
[2023-11-22] MEDS: Enoxaparin 30 MG/0.3 ML Syringe SC (09:09)
[2023-11-22] MEDS: Carvedilol 3.125 MG TABLET PO ×2 (09:10→21:10)
[2023-11-22] MEDS: Escitalopram Oxalate 10 MG Tablet PO (09:10)
[2023-11-22] MEDS: guaiFENesin/D-Methorphan TAB.SR.12H 2 TABLET PO ×2 (09:10→21:15)
[2023-11-22] MEDS: Aspirin 81 MG TAB.CHEW PO (09:10)
[2023-11-22] MEDS: Pantoprazole Sodium 40 MG Tablet PO ×2 (09:11→21:14)
[2023-11-22] MEDS: Finasteride 5 MG Tablet PO (09:11)
[2023-11-22] MEDS: Insulin Lispro 100 UNIT/ML INSULN.PEN SC ×3 (12:20→21:18)
[2023-11-22] MEDS: Insulin Lispro 100 UNIT/ML INSULN.PEN 15 UNIT SC ×2 (12:21→16:17)
[2023-11-22] MEDS: Insulin Glargine-YFGN 100 UNIT/ML Pen 15 UNIT SC (12:22)
[2023-11-22] MEDS: Ferrous Sulfate 325 MG Tablet PO (12:23)
[2023-11-22 12:57] LABS: Bedside Glucose 176 mg/dL (74-106)
[2023-11-22] MEDS: Menthol/Lanolin/Calamine/Znox 113 GM Tube 1 APPLIC TOPICAL (16:18)
[2023-11-22 17:52] LABS: Bedside Glucose 164 mg/dL (74-106)
--- NOTE | 2023-11-22 18:43 | PN.HOSP_ITS ---
Reason for Visit Reason for Visit: Diagnoses Acute and chronic respiratory failure with hypoxia (11/14/23) COVID-19 (11/14/23) Subjective Subjective Patient was seen and examined today, he is currently on 3 L of oxygen via nasal cannula, he does not appear short of breath at rest. Objective Data Objective Data Vital Signs: Vital Signs Temp Pulse Resp BP Pulse Ox O2 Del Method O2 Flow Rate 98.1 F 73 18 114/68 96 Nasal Cannula 3 11/22/23 16:12 11/22/23 16:12 11/22/23 16:12 11/22/23 16:12 11/22/23 16:12 11/22/23 16:15 11/22/23 16:15 FiO2 97 11/18/23 14:00 Oxygen Flow Rate (L/min) 3 Oxygen Delivery Method Nasal Cannula Weight: 95.3 kg Body Mass Index (BMI) 27.7 Intake & Output: Intake and Output for Last 24 Hours 11/20/23 11/21/23 11/22/23 23:59 23:59 23:59 Intake Total 1240 / 1240 425 / 425 Output Total 1050 / 1050 650 / 650 Balance 190 / 190 -225 / -225 Lab / Micro Data 11/22/23 04:20 11/22/23 04:20 Labs: Laboratory Results - last 24 hr 11/21/23 22:12: POC Glucose 78 11/22/23 04:20: WBC 7.0, RBC 2.70 L, Hgb 8.4 L, Hct 27.6 L, MCV 102.2 H, MCH 31.1, MCHC 30.4 L, RDW Std Deviation 58.4 H, RDW Coeff of Rafael 15.6 H, Plt Count 230, MPV 11.0, Immature Gran % (Auto) 3.200 H, Neut % (Auto) 65.5, Lymph % (Auto) 21.1, [place] % (Auto) 6.7, Eos % (Auto) 2.9, Baso % (Auto) 0.6, Absolute Neuts (auto) 4.6, Absolute Lymphs (auto) 1.47, Nucleated RBC % 0, Sodium 143, Potassium 3.6, Chloride 115 H, Carbon Dioxide 24.0, Anion Gap 4 L, BUN 42 H, Creatinine 1.27, Estim Creat Clear Calc 57.67, Est GFR (MDRD) Af Amer 71, Est GFR (MDRD) Non-Af 59 L, BUN/Creatinine Ratio 33.1 H, Glucose 68 L, Calcium 8.5 11/22/23 06:03: POC Glucose 67 L 11/22/23 12:19: POC Glucose 176 H 11/22/23 16:16: POC Glucose 164 H Micro: Microbiology 11/16/23 05:25 Blood Culture (Wb) - Left Forearm Blood Culture - Final No growth in 5 days. 11/16/23 08:52 Sputum, Expectorated/Coughed Gram Stain - Final 11/16/23 08:52 Sputum, Expectorated/Coughed Respiratory Culture - Final 11/16/23 04:51 Nasal Secretion MRSA (PCR) - Final Rhythm Strip Rhythm Strip: Sinus Rhythm Rate: 80 Ectopy: None Physical Exam Const alert, oriented x3 and no apparent distress General Appearance: cooperative, well kempt and well developed Orientation / Consciousness: awake, oriented to person, oriented to place and oriented to time HEENT normocephalic, head/scalp atraumatic and moist oral mucous membranes Eyes PERRL, EOMs intact bilaterally and conjunctivae normal Neck supple, no JVD, thyroid normal and no carotid bruits General: trachea midline Resp normal respiratory effort, no retractions, no use of accessory muscles and clear to auscultation bilaterally Resp Narrative: Diminished breath sounds are noted bilaterally Auscultation: Negative for rales, rhonchi or wheezes Cardio regular rate, regular rhythm, S1 normal heart sound, S2 normal heart sound, no murmurs, no rub and no gallops GI normal to inspection, nondistended, normoactive bowel sounds, soft to palpation, non-tender and non-distended Extremity no clubbing, cyanosis or edema Skin no rashes or lesions noted General Skin Exam: no breakdown Neuro oriented x3, CN's II-XII intact bilaterally, no focal motor deficits and no sensory deficits noted Sensorium / Orientation: awake and alert Speech: speech normal Psych affect normal Assessment & Plan Assessment/Plan (1) COVID-19: PLAN: Plan 1. Acute debility secondary to recent COVID-19 infection with concurrent Pseudomonas pneumonia-PT and OT will continue to see the patient, we await placement for short-term rehab services in a intermediate facility. #2 elevated troponin secondary to demand ischemia from acute on chronic hypoxic respiratory failure due to recent COVID-19 infection superimposed Pseudomonas pneumonia and underlying chronic obstructive pulmonary disease with pulmonary fibrosis-supportive care will be given #3 coronary artery disease-it appears stable at this time #4 chronic congestive heart failure with reduced ejection fraction-complicates care, management, recovery, and prognosis #5 type 2 diabetes-patient is receiving sliding scale insulin per fingerstick blood sugars #6 hyperlipidemia-continue home statin therapy #7 acute on chronic hypoxic respiratory failure-patient is currently on 3 L, pulse ox will be monitored #8 ischemic cardiomyopathy-patient will remain on his current medications Total clinical time spent by myself addressing the patient's medical issues, reviewing all of his data, and collaborating with patient's care team: 35 minutes Charges/Coding Visit Charges Inpatient E&M: 50781 Subs Hosp L2
[2023-11-22] MEDS: Tamsulosin HCl 0.4 MG Capsule PO (21:11)
[2023-11-22] MEDS: Mirtazapine 15 MG Tablet 7.5 MG PO (21:11)
[2023-11-22] MEDS: Atorvastatin Calcium 20 MG Tablet PO (21:13)
[2023-11-22 23:36] LABS: Bedside Glucose 162 mg/dL (74-106)
[2023-11-23] VITALS (7 sets, daily range): BP systolic 113–130; BP diastolic 50–64; PULSE 65–76; RESP 16–18; TEMP 36–36.8; O2SAT 93–97; BMI 27.7
[2023-11-23 06:48] LABS: Bedside Glucose 118 mg/dL (74-106)
[2023-11-23] MEDS: Budesonide Respules 0.5 MG/2 ML AMPUL.NEB. INHALATION ×2 (07:21→19:50)
[2023-11-23] MEDS: Nystatin 500,000 UNIT/5 ML PO.SYRINGE (WCH) 250000 UNIT PO ×4 (10:09→20:43)
[2023-11-23] MEDS: Senna/Docusate Sodium 1 Tablet 2 TABLET PO (10:09)
[2023-11-23] MEDS: Aspirin 81 MG TAB.CHEW PO (10:11)
[2023-11-23] MEDS: Enoxaparin 40 MG/0.4 ML Syringe SC (10:11)
[2023-11-23] MEDS: Escitalopram Oxalate 10 MG Tablet PO (10:12)
[2023-11-23] MEDS: guaiFENesin/D-Methorphan TAB.SR.12H 2 TABLET PO ×2 (10:12→20:44)
[2023-11-23] MEDS: Pantoprazole Sodium 40 MG Tablet PO ×2 (10:12→20:52)
[2023-11-23] MEDS: Finasteride 5 MG Tablet PO (10:12)
[2023-11-23] MEDS: Carvedilol 3.125 MG TABLET PO ×2 (10:12→20:44)
[2023-11-23] MEDS: Nystatin Powder 15gm Bottle 1 APPLIC TOPICAL ×2 (10:13→20:46)
[2023-11-23] MEDS: Insulin Glargine-YFGN 100 UNIT/ML Pen 15 UNIT SC (11:50)
[2023-11-23] MEDS: Ferrous Sulfate 325 MG Tablet PO (11:52)
[2023-11-23 12:23] LABS: Bedside Glucose 174 mg/dL (74-106)
--- NOTE | 2023-11-23 13:28 | PCM.PN.HOSP ---
Reason for Visit Reason for Visit: Diagnoses Acute and chronic respiratory failure with hypoxia (11/14/23) COVID-19 (11/14/23) Subjective Subjective Patient was seen and examined today, he is in no respiratory distress at rest on 2 L, patient questioned about when he would be transferred to a skilled care facility and I explained that we were waiting his insurance approval. Objective Data Objective Data Vital Signs: Vital Signs Temp Pulse Resp BP Pulse Ox O2 Del Method O2 Flow Rate 98.2 F 76 18 130/61 H 94 Nasal Cannula 2 11/23/23 10:02 11/23/23 10:02 11/23/23 10:02 11/23/23 10:02 11/23/23 10:02 11/23/23 10:02 11/23/23 10:02 FiO2 97 11/18/23 14:00 Oxygen Flow Rate (L/min) 2 Oxygen Delivery Method Nasal Cannula Weight: 95.4 kg Body Mass Index (BMI) 27.7 Intake & Output: Intake and Output for Last 24 Hours 11/21/23 11/22/23 11/23/23 23:59 23:59 23:59 Intake Total 425 / 425 Output Total 650 / 650 Balance -225 / -225 Lab / Micro Data 11/22/23 04:20 11/22/23 04:20 Labs: Laboratory Results - last 24 hr 11/22/23 16:16: POC Glucose 164 H 11/22/23 21:18: POC Glucose 162 H 11/23/23 06:28: POC Glucose 118 H 11/23/23 11:48: POC Glucose 174 H Micro: Microbiology 11/16/23 05:25 Blood Culture (Wb) - Left Forearm Blood Culture - Final No growth in 5 days. 11/16/23 08:52 Sputum, Expectorated/Coughed Gram Stain - Final 11/16/23 08:52 Sputum, Expectorated/Coughed Respiratory Culture - Final 11/16/23 04:51 Nasal Secretion MRSA (PCR) - Final Rhythm Strip Rhythm Strip: Sinus Rhythm Rate: 80 Ectopy: None Physical Exam Narrative alert, oriented x3 and no apparent distress General Appearance: cooperative, well kempt and well developed Orientation / Consciousness: awake, oriented to person, oriented to place and oriented to time HEENT normocephalic, head/scalp atraumatic and moist oral mucous membranes Eyes PERRL, EOMs intact bilaterally and conjunctivae normal Neck supple, no JVD, thyroid normal and no carotid bruits General: trachea midline Resp normal respiratory effort, no retractions, no use of accessory muscles and clear to auscultation bilaterally Resp Narrative: Diminished breath sounds are noted bilaterally Auscultation: Negative for rales, rhonchi or wheezes Cardio regular rate, regular rhythm, S1 normal heart sound, S2 normal heart sound, no murmurs, no rub and no gallops GI normal to inspection, nondistended, normoactive bowel sounds, soft to palpation, non-tender and non-distended Extremity no clubbing, cyanosis or edema Skin no rashes or lesions noted General Skin Exam: no breakdown Neuro oriented x3, CN's II-XII intact bilaterally, no focal motor deficits and no sensory deficits noted Sensorium / Orientation: awake and alert Speech: speech normal Psych affect normal Assessment & Plan Assessment/Plan (1) FTT (failure to thrive) in adult: (2) COVID-19: PLAN: Plan 1. Acute debility secondary to recent COVID-19 infection with concurrent Pseudomonas pneumonia-PT and OT will continue to see the patient, we await placement for short-term rehab services in a intermediate facility-awaiting insurance approval #2 elevated troponin secondary to demand ischemia from acute on chronic hypoxic respiratory failure due to recent COVID-19 infection superimposed Pseudomonas pneumonia and underlying chronic obstructive pulmonary disease with pulmonary fibrosis-supportive care will be given #3 coronary artery disease-it appears stable at this time #4 chronic congestive heart failure with reduced ejection fraction-complicates care, management, recovery, and prognosis #5 type 2 diabetes-patient is receiving sliding scale insulin per fingerstick blood sugars #6 hyperlipidemia-continue home statin therapy #7 acute on chronic hypoxic respiratory failure-patient is currently on 3 L, pulse ox will be monitored #8 ischemic cardiomyopathy-patient will remain on his current medications Total clinical time spent by myself addressing the patient's medical issues, reviewing all of his data, and collaborating with patient's care team: 25 minutes Charges/Coding Visit Charges Inpatient E&M: [id number] [facility] [place] [facility] L1
[2023-11-23] MEDS: Menthol/Lanolin/Calamine/Znox 113 GM Tube 1 APPLIC TOPICAL ×2 (14:41→20:46)
[2023-11-23 15:05] LABS: Bedside Glucose 124 mg/dL (74-106)
[2023-11-23] MEDS: Insulin Lispro 100 UNIT/ML INSULN.PEN 15 UNIT SC (16:58)
[2023-11-23] MEDS: Insulin Lispro 100 UNIT/ML INSULN.PEN SC (16:58)
[2023-11-23 17:32] LABS: Bedside Glucose 161 mg/dL (74-106)
[2023-11-23] MEDS: Atorvastatin Calcium 20 MG Tablet PO (20:44)
[2023-11-23] MEDS: Tamsulosin HCl 0.4 MG Capsule PO (20:44)
[2023-11-23] MEDS: Mirtazapine 15 MG Tablet 7.5 MG PO (20:52)
[2023-11-23 21:22] LABS: Bedside Glucose 86 mg/dL (74-106)
[2023-11-24 03:10] VITALS: BP 121/66; PULSE 68; RESP 16; TEMP 35.9; O2SAT 97
[2023-11-24] MEDS: Menthol/Lanolin/Calamine/Znox 113 GM Tube 1 APPLIC TOPICAL ×2 (05:03→13:30)
[2023-11-24 05:07] VITALS: BMI 27.6
[2023-11-24 07:42] VITALS: O2SAT 94
[2023-11-24 08:40] VITALS: BP 122/69; PULSE 73; RESP 18; TEMP 36.1; O2SAT 92
--- NOTE | 2023-11-24 08:57 | CASEMGMT ---
Per RN patient wants to discharge as his is not doing well. SW called patient's son Ray and left him a voice mail requesting a return call. Kesha REESE
[2023-11-24] MEDS: Pantoprazole Sodium 40 MG Tablet PO (09:00)
[2023-11-24] MEDS: Carvedilol 3.125 MG TABLET PO (09:00)
[2023-11-24] MEDS: Escitalopram Oxalate 10 MG Tablet PO (09:00)
[2023-11-24] MEDS: guaiFENesin/D-Methorphan TAB.SR.12H 2 TABLET PO (09:01)
[2023-11-24] MEDS: Finasteride 5 MG Tablet PO (09:02)
[2023-11-24] MEDS: Aspirin 81 MG TAB.CHEW PO (09:02)
[2023-11-24] MEDS: Nystatin Powder 15gm Bottle 1 APPLIC TOPICAL (09:03)
[2023-11-24] MEDS: Enoxaparin 40 MG/0.4 ML Syringe SC (09:03)
[2023-11-24 09:32] LABS: Bedside Glucose 101 mg/dL (74-106)
--- NOTE | 2023-11-24 09:53 | CASEMGMT ---
TYE was informed by RN that patient wants to go home as his is not doing well. SW called patient's son Ray and he confirmed patient's is not doing well. They think she has a few days to live. Ray said he understands patient wants to leave to be with his . However, they are not sure about patient being home alone. Ray said they may have to take turns being with him. TYE told Ray we can see how he does with therapy today. Ray and TYE will talk with patient about a plan. Kesha REESE
--- NOTE | 2023-11-24 10:48 | CASEMGMT ---
This TYE and TYE Balderrama met with patient. Patient stated his is not doing well and he wants to go home now. SW asked patient if he would like home health and patient stated he would. Patient has had [facility] in the past and he would like them again. Patient declined a list. TYE told patient SW will work on referral and let physician know the new plan. SW called [facility] and made a referral. TYE also called patient's son Ray and he did speak with patient this am after talking to TYE. Ray is agreeable to patient returning home. Ray said they are going to try and get patient to stay with them at least for a week, but he was not sure if patient would be agreeable. Plan: d/c home with HH. Waiting on [facility] acceptance or denial. Kesha REESE
--- NOTE | 2023-11-24 11:02 | CASEMGMT ---
[facility] called RN CM, accepted Pt. SOC 11/26/23. Updated DC plan.
--- NOTE | 2023-11-24 11:43 | CASEMGMT ---
TYE notified patient that [facility] can take him and they plan to see him Wed. TYE let patient know this information. Patient thanked TYE. Plan: d/c home with [facility] fpc, PT, OT, and social work. Kesha REESE
[2023-11-24] MEDS: Insulin Lispro 100 UNIT/ML INSULN.PEN 15 UNIT SC (13:28)
[2023-11-24] MEDS: Ferrous Sulfate 325 MG Tablet PO (13:29)
--- NOTE | 2023-11-24 13:59 | PCM.DC ---
Discharge Instructions Diet Discharge Diet: 1800 Calorie Control Diet Activity Discharge Activity: Return to Normal Activity Weight Bearing Status: Full weight bearing Follow Up Care Test Results: Test results from this visit will be discussed in further detail at your follow-up appointment, if applicable. Discharge Plan Admission Admit Date/Time: 11/14/23 19:59 Primary Reason for Your Visit: COVID-19 pneumonia, debility, acute respiratory failure Attending Provider: Lalo Dewitt Primary Care Provider: Donna Will Consulting Providers: Janice Mackey; Huang Lazcano Instructions Additional Instructions / Restrictions: Use 2 L of oxygen at rest, use 4 L of oxygen when ambulating Discharge Orders/Prescriptions Prescriptions: New aspirin 81 mg Tablet,Chewable 81 mg PO BREAKFAST Qty: 0 0RF insulin lispro [Humalog KwikPen Insulin] 100 unit/mL Insulin Pen 15 unit subcut 0800,1200,1700 Qty: 0 0RF insulin glargine-yfgn 100 unit/mL (3 mL) Insulin Pen 15 unit subcut DAILY Qty: 0 0RF fluconazole [Diflucan] 100 mg tablet 100 mg PO DAILY Qty: 7 0RF Continued nitroglycerin [Nitrostat] 0.4 mg tablet, sublingual 0.4 mg SUBLINGUAL Q5M PRN (Reason: chest pain) Qty: 30 0RF Rx Instructions: until response; do not exceed 3 doses per episode multivitamin Tablet 1 tab PO DAILY tamsulosin 0.4 mg capsule 0.4 mg PO QHS finasteride 5 mg tablet 5 mg PO DAILY ipratropium-albuterol 0.5 mg-3 mg(2.5 mg base)/3 mL solution for nebulization 3 ml inhalation Q4H PRN PRN (Reason: SOB &/OR WHEEZING) Qty: 270 11RF budesonide 1 mg/2 mL suspension for nebulization 1 mg inhalation Q12H Qty: 120 11RF furosemide [Lasix] 40 mg tablet 20 mg PO DAILY Qty: 30 0RF ferrous sulfate [FeroSul] 325 mg (65 mg iron) Tablet 325 mg PO LUNCH 30 Days Qty: 30 2RF dextromethorphan-guaifenesin 60-1,200 mg tablet extended release 12 hr 1 tab PO BID 7 Days Qty: 14 0RF (DME) Easy Touch Hypodermic Needle 32 gauge x 5/16 needle See Rx Instructions .Route Qty: 100 0RF Rx Instructions: As directed (DME) pen needle, diabetic 32 gauge x 5/32 needle See Rx Instructions .ROUTE .MEDSUPPLY Qty: 100 0RF Rx Instructions: As directed insulin aspart U-100 100 unit/mL (3 mL) insulin pen See Protocol subcut ACHS 30 Days Qty: 15 0RF Protocol: 3. Sliding Scale Insulin Med Dosing Condition: 150-189 mg/dl = 1 unit Condition: 190-229 mg/dl = 2 units Condition: 230-269 mg/dl = 3 units Condition: 270-309 mg/dl = 4 units Condition: 310-349 mg/dl = 5 units Condition: 350-399 mg/dl = 6 units Condition: 400-449 mg/dl = 7 units Condition: Greater than 449 call physician Protocol Text: Suggested for: - Patients on Total Daily Insulin Dose of 37-55 units - Obese, infected, or steroid patients MEDIUM DOSING ALGORITHIM menthol-zinc oxide [Calmoseptine] 0.44-20.6 % ointment 1 applic topical 4-6XD PRN (Reason: skin irritation) Qty: 113 2RF carvedilol 3.125 mg tablet 3.125 mg PO BID Qty: 60 11RF Rx Instructions: must administer with a meal/food atorvastatin 40 mg tablet 20 mg PO QHS Qty: 90 3RF escitalopram oxalate 10 mg tablet 10 mg PO DAILY 90 Days Qty: 90 3RF mirtazapine [Remeron] 15 mg tablet 7.5 mg PO QHS Qty: 90 3RF pantoprazole 40 mg tablet,delayed release (DR/EC) 40 mg PO BID 90 Days Qty: 180 1RF Jardiance 10 mg tablet 10 mg PO DAILY Qty: 90 3RF Discontinued prednisone 2.5 mg tablet 5 mg PO DAILY insulin glargine [Lantus Solostar U-100 Insulin] 100 unit/mL (3 mL) insulin pen 10 unit subcut DAILY 30 Days Qty: 15 4RF Rx Instructions: Hold if glucose less than 130 mg/dl dexamethasone 6 mg tablet 6 mg PO DAILY 8 Days Qty: 8 0RF cefdinir 300 mg capsule 300 mg PO BID 5 Days Qty: 10 0RF insulin aspart U-100 100 unit/mL (3 mL) insulin pen 10 unit subcut TID 30 Days Qty: 9 3RF Rx Instructions: Hold if glucose less than 130 mg/dl Referrals / Follow Up: Donna Will MD [Primary Care Provider] - Within 2 Weeks Disposition Disposition (needs filled in before D/C Order can be placed): Home Health Service
[2023-11-24 14:26] VITALS: O2SAT 0; O2SAT 87; O2SAT 88; O2SAT 91; O2SAT 92
[2023-11-24 14:49] LABS: Bedside Glucose 132 mg/dL (74-106)
--- NOTE | 2023-11-24 15:11 | DS.PCM_ITS ---
Providers Date of Admission: 11/14/23 Date of Discharge: 11/24/23 Primary Care Physician: Dr. Donna Will MD Reason For Visit: COVID, PNA, RESPIRATORY FAILURE ON CHRONIC, Diagnosis Discharge Diagnosis (1) FTT (failure to thrive) in adult: Status: Acute Code(s): R62.7 - Adult failure to thrive (2) COVID-19: Status: Acute Code(s): U07.1 - COVID-19 Plan 1. Acute debility secondary to recent COVID-19 infection with concurrent Pseudomonas pneumonia-PT and OT will continue to see the patient, we await placement for short-term rehab services in a intermediate facility-awaiting insurance approval #2 elevated troponin secondary to demand ischemia from acute on chronic hypoxic respiratory failure due to recent COVID-19 infection superimposed Pseudomonas pneumonia and underlying chronic obstructive pulmonary disease with pulmonary fibrosis-supportive care will be given #3 coronary artery disease-it appears stable at this time #4 chronic congestive heart failure with reduced ejection fraction-complicates care, management, recovery, and prognosis #5 type 2 diabetes-patient is receiving sliding scale insulin per fingerstick blood sugars #6 hyperlipidemia-continue home statin therapy #7 Hypoxia secondary to recent COVID-19 infection and concurrent Pseudomonas pneumonia superimposed on chronic hypoxemic respiratory failure #8 ischemic cardiomyopathy-patient will remain on his current medications #9 paroxysmal atrial flutter #10 chronic obstructive pulmonary disease Type II NC was ruled out, acute on chronic respiratory failure was ruled out Total clinical time spent by myself addressing the patient's medical issues, reviewing all of his data, and collaborating with patient's care team: 25 minutes Medications at Discharge Home Medications nitroglycerin 0.4 mg sublingual tablet (Nitrostat) 0.4 mg sublingual Q5M PRN chest pain #30 tabs 09/25/20 finasteride 5 mg tablet 5 mg PO DAILY prostate 08/14/22 tamsulosin 0.4 mg capsule 0.4 mg PO QHS prostate 08/14/22 multivitamin 1 tab PO DAILY vitamin 09/13/22 menthol 0.44 %-zinc oxide 20.6 % topical ointment (Calmoseptine) 1 applic topical 4-6XD PRN skin irritation #113 grams 03/07/23 ferrous sulfate 325 mg (65 mg iron) tablet (FeroSul) 325 mg PO LUNCH 30 days #30 tabs 03/21/23 furosemide 40 mg tablet (Lasix) 20 mg (1/2 x 40 mg) PO DAILY diuretic #30 tabs 03/27/23 carvedilol 3.125 mg tablet 3.125 mg PO BID #60 tabs 06/05/23 atorvastatin 40 mg tablet 20 mg (1/2 x 40 mg) PO QHS cholesterol #90 tabs 09/18/23 budesonide 1 mg/2 mL suspension for nebulization 1 mg (2 mL) inhalation Q12H #120 mL 09/19/23 ipratropium 0.5 mg-albuterol 3 mg (2.5 mg base)/3 mL nebulization soln 3 ml inhalation Q4H PRN PRN SOB &/OR WHEEZING #270 mL 09/19/23 escitalopram oxalate 10 mg tablet 10 mg PO DAILY mood 90 days #90 tabs 10/29/23 mirtazapine 15 mg tablet (Remeron) 7.5 mg (1/2 x 15 mg) PO QHS sleep #90 tabs 10/29/23 pantoprazole 40 mg tablet,delayed release 40 mg PO BID reflux 3 months #180 tabs 10/29/23 dextromethorphan-guaifenesin ER 60 mg-1,200 mg tab,extend release,12hr 1 tab PO BID 7 days #14 tabs 11/11/23 empagliflozin 10 mg tablet (Jardiance) 10 mg PO DAILY #90 tabs 11/11/23 insulin aspart U-100 100 unit/mL (3 mL) subcutaneous pen See Protocol subcut ACHS 1 month #15 mL 11/12/23 needle (disp) 32 gauge 32 gauge x 5/16 (Easy Touch Hypodermic Needle) #100 ea 11/12/23 pen needle, diabetic 32 gauge x 5/32 #100 ea 11/12/23 aspirin 81 mg chewable tablet 81 mg PO BREAKFAST #0 tabs 11/24/23 fluconazole 100 mg tablet (Diflucan) 100 mg PO DAILY #7 tabs 11/24/23 insulin glargine-yfgn 100 unit/mL (3 mL) subcutaneous pen 15 unit (0.15 mL) subcut DAILY #0 mL 11/24/23 insulin lispro 100 unit/mL subcutaneous pen (Humalog KwikPen (U-100) Insulin) 15 unit (0.15 mL) subcut 0800,1200,1700 #0 mL 11/24/23 Hospital Course Operations None Procedures None Summary of Care Provided Minutes Spent on Discharge: 32 Hospital Course: This 73-year-old white male was seen in the emergency room at [facility] after being brought in by squad, he was a poor informant complaining of being cold he had recently been seen at the hospital and diagnosed with COVID and discharged on home oxygen. Family arrived and provided more history, they stated the patient was lethargic during the day and the home health care nurse to was checking on the patient called the granddaughter because the patient was less responsive and was slumped with his head on the table. Granddaughter came to his home to check on him and found him responsive but lethargic stating that he was dizzy. Pulse ox was checked and it was 85% on 4 L. Workup in the emergency room included a white blood cell count which was elevated at 15.4, patient's hemoglobin was 10.7, creatinine was elevated at 1.41, BUN was elevated at 48, and troponin was elevated at 300. Glucose was 179. Chest x-ray showed bibasilar interstitial thickening more pronounced on the right side. Arterial blood gas was obtained which showed a pCO2 of 45 and a pO2 of 55 and 4 L nasal cannula oxygen. Patient was admitted for hypoxemia, elevated troponin, and generalized debility, he was seen by PT and OT, given IV antibiotics and corticosteroids, sputum was positive for Pseudomonas, and patient improved slowly during his hospitalization but remained weak. It was planned that the patient would go to a skilled facility for short-term rehab services, however, since the patient's was enrolled in hospice and not doing well at home, the patient and the patient's family decided it was more prudent for the patient to be discharged home and he was felt to be stable to go home. On 11/24/2023, patient was seen and examined: On examination he appeared in good health and spirits. Vital signs as documented. Skin warm and dry and without overt rashes. Neck without JVD, neck was supple, trachea midline, thyroid was normal. Lungs clear bilaterally, normal air movement was noted. Heart exam notable for regular rhythm, normal sounds and absence of murmurs, rubs or gallops. Abdomen unremarkable and without evidence of organomegaly, masses, or abdominal aortic enlargement. Bowel sounds are present, abdomen is not distended. Extremities nonedematous, no cyanosis was noted, no clubbing was noted. Neuro: Cranial nerves II through XII are grossly intact, no focal motor deficits were noted, sensation to light touch and pinprick intact, motor exam 5/5 throughout. Psych: Patient is alert and oriented x3, he does not appear anxious or depressed, he does not appear agitated. Patient appears stable for discharge home on 11/24/2023. Weight / BMI Weight Weight: 94.8 kg Body Mass Index (BMI) 27.6 ABG / Lab / Microbiology Data 11/22/23 04:20 11/22/23 04:20 Laboratory: Laboratory Results - last 24 hr 11/23/23 16:52: POC Glucose 161 H 11/23/23 20:42: POC Glucose 86 11/24/23 08:58: POC Glucose 101 11/24/23 12:34: POC Glucose 132 H Microbiology: Microbiology 11/16/23 05:25 Blood Culture (Wb) - Left Forearm Blood Culture - Final No growth in 5 days. 11/16/23 08:52 Sputum, Expectorated/Coughed Gram Stain - Final 11/16/23 08:52 Sputum, Expectorated/Coughed Respiratory Culture - Final 11/16/23 04:51 Nasal Secretion MRSA (PCR) - Final D/C Instructions Discharge Diet: 1800 Calorie Control Diet Weight Bearing Status: Full weight bearing Meaningful Use Info Meaningful Use Meaningful Use Diagnoses (Choose all that apply): None applicable Ischemic Stroke Statin Dosing Therapy Reference: STATIN DOSE THERAPY REFERENCE: * Patients > 75 years receive moderate or high dose statin therapy. * Patients 75 years or YOUNGER should receive HIGH intensity statin dose unless contraindicated. You will be required to document reason for non-treatment if statin daily dose does not meet guidelines. HIGH DOSE STATIN THERAPY DAILY Atorvastatin > than or = to 40 mg Rosuvastatin > than or = to 20 mg Amlodipine + Atorvastatin > than or = to 2.5/40 mg Ezetimibe + Simvastatin 10/80 mg Simvastatin 80mg Discharge Plan Admission Admit Date/Time: 11/14/23 19:59 Primary Reason for Your Visit: COVID-19 pneumonia, debility, acute respiratory failure Attending Provider: Lalo Dewitt Primary Care Provider: Donna Will Consulting Providers: Janice Mackey; Huang Lazcano Instructions Additional Instructions / Restrictions: Use 2 L of oxygen at rest, use 4 L of oxygen when ambulating Discharge Orders/Prescriptions Prescriptions: New aspirin 81 mg Tablet,Chewable 81 mg PO BREAKFAST Qty: 0 0RF insulin lispro [Humalog KwikPen Insulin] 100 unit/mL Insulin Pen 15 unit subcut 0800,1200,1700 Qty: 0 0RF insulin glargine-yfgn 100 unit/mL (3 mL) Insulin Pen 15 unit subcut DAILY Qty: 0 0RF fluconazole [Diflucan] 100 mg tablet 100 mg PO DAILY Qty: 7 0RF Continued nitroglycerin [Nitrostat] 0.4 mg tablet, sublingual 0.4 mg SUBLINGUAL Q5M PRN (Reason: chest pain) Qty: 30 0RF Rx Instructions: until response; do not exceed 3 doses per episode multivitamin Tablet 1 tab PO DAILY tamsulosin 0.4 mg capsule 0.4 mg PO QHS finasteride 5 mg tablet 5 mg PO DAILY ipratropium-albuterol 0.5 mg-3 mg(2.5 mg base)/3 mL solution for nebulization 3 ml inhalation Q4H PRN PRN (Reason: SOB &/OR WHEEZING) Qty: 270 11RF budesonide 1 mg/2 mL suspension for nebulization 1 mg inhalation Q12H Qty: 120 11RF furosemide [Lasix] 40 mg tablet 20 mg PO DAILY Qty: 30 0RF ferrous sulfate [FeroSul] 325 mg (65 mg iron) Tablet 325 mg PO LUNCH 30 Days Qty: 30 2RF dextromethorphan-guaifenesin 60-1,200 mg tablet extended release 12 hr 1 tab PO BID 7 Days Qty: 14 0RF (DME) Easy Touch Hypodermic Needle 32 gauge x 5/16 needle See Rx Instructions .Route Qty: 100 0RF Rx Instructions: As directed (DME) pen needle, diabetic 32 gauge x 5/32 needle See Rx Instructions .ROUTE .MEDSUPPLY Qty: 100 0RF Rx Instructions: As directed insulin aspart U-100 100 unit/mL (3 mL) insulin pen See Protocol subcut ACHS 30 Days Qty: 15 0RF Protocol: 3. Sliding Scale Insulin Med Dosing Condition: 150-189 mg/dl = 1 unit Condition: 190-229 mg/dl = 2 units Condition: 230-269 mg/dl = 3 units Condition: 270-309 mg/dl = 4 units Condition: 310-349 mg/dl = 5 units Condition: 350-399 mg/dl = 6 units Condition: 400-449 mg/dl = 7 units Condition: Greater than 449 call physician Protocol Text: Suggested for: - Patients on Total Daily Insulin Dose of 37-55 units - Obese, infected, or steroid patients MEDIUM DOSING ALGORITHIM menthol-zinc oxide [Calmoseptine] 0.44-20.6 % ointment 1 applic topical 4-6XD PRN (Reason: skin irritation) Qty: 113 2RF carvedilol 3.125 mg tablet 3.125 mg PO BID Qty: 60 11RF Rx Instructions: must administer with a meal/food atorvastatin 40 mg tablet 20 mg PO QHS Qty: 90 3RF escitalopram oxalate 10 mg tablet 10 mg PO DAILY 90 Days Qty: 90 3RF mirtazapine [Remeron] 15 mg tablet 7.5 mg PO QHS Qty: 90 3RF pantoprazole 40 mg tablet,delayed release (DR/EC) 40 mg PO BID 90 Days Qty: 180 1RF Jardiance 10 mg tablet 10 mg PO DAILY Qty: 90 3RF Discontinued prednisone 2.5 mg tablet 5 mg PO DAILY insulin glargine [Lantus Solostar U-100 Insulin] 100 unit/mL (3 mL) insulin pen 10 unit subcut DAILY 30 Days Qty: 15 4RF Rx Instructions: Hold if glucose less than 130 mg/dl dexamethasone 6 mg tablet 6 mg PO DAILY 8 Days Qty: 8 0RF cefdinir 300 mg capsule 300 mg PO BID 5 Days Qty: 10 0RF insulin aspart U-100 100 unit/mL (3 mL) insulin pen 10 unit subcut TID 30 Days Qty: 9 3RF Rx Instructions: Hold if glucose less than 130 mg/dl Referrals / Follow Up: Donna Will MD [Primary Care Provider] - 12/03/23 10:00 am Disposition Disposition (needs filled in before D/C Order can be placed): Home Health Service Charges/Coding Visit Charges Inpatient E&M: 30807 Disch Hosp >30min
== END 2023-11-24 16:43 | disposition home health service (06) | DRG 871 ==
LOC: ED 20:04 → PCU 20:29
PROVIDERS: Family Medicine; Admitting Provider Family Medicine; Emergency Provider Emergency Medicine; PCP Internal Medicine; Visit Provider Internal Medicine
DX: A41.89 Other specified sepsis (principal); U07.1 COVID-19; J12.82 Pneumonia due to coronavirus disease 2019; J15.1 Pneumonia due to Pseudomonas; I13.0 Hypertensive heart and chronic kidney disease with heart failure and stage 1 through stage 4 chronic kidney disease, or unspecified chronic kidney disease; J44.0 Chronic obstructive pulmonary disease with (acute) lower respiratory infection; N17.9 Acute kidney failure, unspecified; I24.89 Other forms of acute ischemic heart disease; I50.22 Chronic systolic (congestive) heart failure; C85.90 Non-Hodgkin lymphoma, unspecified, unspecified site; I48.92 Unspecified atrial flutter; M06.9 Rheumatoid arthritis, unspecified; F32.A Depression, unspecified; D50.9 Iron deficiency anemia, unspecified; Z79.4 Long term (current) use of insulin; I48.91 Unspecified atrial fibrillation; J84.10 Pulmonary fibrosis, unspecified; I25.10 Atherosclerotic heart disease of native coronary artery without angina pectoris; E78.00 Pure hypercholesterolemia, unspecified; E78.5 Hyperlipidemia, unspecified; I25.5 Ischemic cardiomyopathy; F41.9 Anxiety disorder, unspecified; B96.5 Pseudomonas (aeruginosa) (mallei) (pseudomallei) as the cause of diseases classified elsewhere; Z95.5 Presence of coronary angioplasty implant and graft; Z79.82 Long term (current) use of aspirin; Z79.52 Long term (current) use of systemic steroids; Z79.51 Long term (current) use of inhaled steroids; Z86.718 Personal history of other venous thrombosis and embolism; Z79.2 Long term (current) use of antibiotics; Z87.891 Personal history of nicotine dependence; R62.7 Adult failure to thrive; N40.0 Benign prostatic hyperplasia without lower urinary tract symptoms
CPT/HCPCS: 36415; 36600; 71045; 80048; 80053; 80061; 80202; 82803; 82962; 83735; 84443; 84484; 85025; 87040; 87070; 87205; 87641; 93005; 94640; 94668; 94762; 97110; 97162; 97166; 97530; 97535; 97803; 99285; 99406; J7030; J7040; J7050; A4216

== ENCOUNTER → 2024-02-27 | Outpatient (CLI) | payer MEDICARE, SELFPAY ==
--- NOTE | 2024-02-27 14:45 | CT_ITS ---
EXAM: CT CHEST, LUNG CANCER SCREENING WITHOUT INTRAVENOUS CONTRAST CLINICAL INDICATION: smoker and gt; 20 pack years, quit 03/13/21 TECHNIQUE: Helically acquired images were obtained of the chest without intravenous contrast using low dose (LDCT) lung cancer screening protocol. This CT exam was performed using one or more of the following dose reduction techniques: automated exposure control, adjustment of the mA and/or kV according to patient size, and/or use of iterative reconstruction technique. COMPARISON: 01/25/2023 FINDINGS: LUNGS AND PLEURAL SPACES: There is a small right-sided effusion with right lower lobe consolidation which may represent atelectasis or pneumonia. There is a 5 mm pleural-based nodule in the right lung apex posteriorly. There is minimal bronchiectasis in the lower lobes. HEART: Unremarkable. Heart size is normal. No pericardial effusion. No significant coronary artery calcifications. MEDIASTINUM: Unremarkable. No mediastinal or hilar adenopathy. Esophagus is unremarkable. No hiatal hernia. THYROID: Unremarkable. No thyroid lesions. BONES/JOINTS: Unremarkable. No suspicious lytic or blastic abnormality. VASCULATURE: Unremarkable. Thoracic aorta is non-dilated. LYMPH NODES: Unremarkable. No enlarged lymph nodes. CT/Low Dose CT Lung Screening IMPRESSION: 1. Stable right-sided effusion with consolidation in the right lung base which may represent atelectasis. 2. 5 mm pleural-based nodule in the right apex. Lung-RADS score: 2 - Benign Appearance or Behavior. Recommend continued annual screening with a low-dose CT (LDCT) in 12 months. Electronically Signed: Bebeto Snider MD at 23:59 EST ,
== END | disposition home or self-care (01) ==
LOC: CT 14:45
PROVIDERS: PCP Internal Medicine; Referring Provider Nurse Practitioner Acute Care; Visit Provider Nurse Practitioner Acute Care
DX: F17.211 Nicotine dependence, cigarettes, in remission (principal)
CPT/HCPCS: 71271

== ENCOUNTER → 2024-03-05 | Outpatient (CLI) | payer MEDICARE, SELFPAY ==
--- NOTE | 2024-03-05 14:00 | RAD_ITS ---
STUDY: X-RAY CHEST REASON FOR EXAM: Male, 73 years old. history of RLL pneumonia TECHNIQUE: Frontal and lateral views of the chest. COMPARISON: 11/16/2023. FINDINGS: There is hyperinflation of the lungs consistent with chronic obstructive lung disease (COPD). Probable scarring in both lung bases. No infiltrates. No effusions. There is no demonstrated pleural abnormality. Sternal cerclage wires and vascular clips are present from a prior sternotomy and coronary artery bypass graft procedure (CABG). Normal mediastinum and sho. Normal visualized pulmonary arteries. Normal visualized aortic arch and descending thoracic aorta. There are diffuse degenerative changes of the visualized thoracic spine. Normal visualized ribs, clavicles, and shoulders. There is no demonstrated abnormality of the visualized soft tissue structures of the upper abdomen. RAD/Chest PA and Lateral IMPRESSION: There are findings consistent with COPD. There is no evidence of acute chest disease. Electronically Signed: Jaguar Tejeda MD at 22:58 EST ,
== END | disposition home or self-care (01) ==
LOC: RAD 13:51
PROVIDERS: PCP Internal Medicine; Referring Provider Nurse Practitioner Family; Visit Provider Nurse Practitioner Family
DX: J44.9 Chronic obstructive pulmonary disease, unspecified (principal)

== ENCOUNTER 2024-04-05 16:28 | Inpatient (IN) | payer MEDICARE, SELFPAY ==
[2024-04-05] VITALS (12 sets, daily range): BP systolic 97–114; BP diastolic 46–61; PULSE 75–94; RESP 16–91; TEMP 37.2–37.8; O2SAT 22–98; BMI 31.4
--- NOTE | 2024-04-05 17:29 | EKG12_ITS ---
Test Reason : GENERAL Blood Pressure : */* mmHG Vent. Rate : 88 BPM Atrial Rate : * BPM P-R Int : * ms QRS Dur : 84 ms QT Int : 338 ms P-R-T Axes : * 50 59 degrees QTcB Int : 408 ms Atrial fibrillation Nonspecific ST abnormality Abnormal ECG Confirmed by Mekhi Garcia ([id number]), technical editor AVINASH MARTINEZ ([id number]) on 04/06/2024 10:04:01 AM Referred By: Confirmed By: Mkehi Garcia
--- NOTE | 2024-04-05 17:33 | ED.VIS.DYS ---
HPI History of Present Illness Chief Complaint: Cold Sx Informant: patient and EMS Narrative Narrative: History of COPD on chronic 4 L oxygen, diabetes, heart failure with reduced ejection fraction presents 2-week history of increasing cough dyspnea and fevers with myalgias. Denies sick contacts. Remote tobacco. He has been using his nebulizers that helps his dyspnea today nausea and vomiting x 1 with no hematemesis. No diarrhea. No urinary symptoms. EMS had a temp of 101. He was 84% on his 4 L he was brought in on 6 L of oxygen. He has not seen any healthcare providers since since symptom onset. [facility] Medical History Ischemic cardiomyopathy COVID-19 Lethargic COPD with acute exacerbation Elevated troponin I level LUIS (acute kidney injury) Hypoxemia Chronic kidney disease (CKD), stage III (moderate) Acute hypoxic on chronic hypercapnic respiratory failure FTT (failure to thrive) in adult Former smoker On home oxygen therapy Bleeding tendency Ulcer High cholesterol History of stress test HTN (hypertension) Tobacco abuse History of pulmonary embolus (PE) (04/30/21) Essential hypertension Type 2 diabetes mellitus DVT (deep venous thrombosis) (05/01/21) Rhinovirus Acute respiratory failure with hypoxia Physical debility COVID-19 in immunocompromised patient Nicotine dependence, cigarettes, uncomplicated Diabetes Arthritis Cancer COPD (chronic obstructive pulmonary disease) History of basal cell carcinoma Atherosclerosis of coronary artery of [place] heart without angina pectoris Pneumonia Non-Hodgkin lymphoma History of pilonidal cyst Allergic rhinitis 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 complications Gastritis Colon polyp Obesity Asthma Chronic bronchitis Positive colorectal cancer screening using Cologuard test RA (rheumatoid arthritis) Home Medications ?Medication ?Instructions ?Recorded ?Last Taken ?Type finasteride 5 mg tablet 5 mg PO DAILY prostate 08/14/22 03/16/23 History tamsulosin 0.4 mg capsule 0.4 mg PO QHS prostate 08/14/22 03/15/23 History multivitamin 1 tab PO DAILY vitamin 09/13/22 03/16/23 History menthol 0.44 %-zinc oxide 20.6 % 1 applic topical 4-6XD PRN skin 03/07/23 Unknown Rx topical ointment (Calmoseptine) irritation #113 grams carvedilol 3.125 mg tablet 3.125 mg PO BID #60 tabs 06/05/23 Unknown Rx atorvastatin 40 mg tablet 20 mg (1/2 x 40 mg) PO QHS 09/18/23 Unknown Rx cholesterol #90 tabs budesonide 1 mg/2 mL suspension 1 mg (2 mL) inhalation Q12H #120 mL 09/19/23 Unknown Rx for nebulization ipratropium 0.5 mg-albuterol 3 mg 3 ml inhalation Q4H PRN PRN SOB 09/19/23 Unknown Rx (2.5 mg base)/3 mL nebulization &/OR WHEEZING #270 mL soln escitalopram oxalate 10 mg tablet 10 mg PO DAILY mood 90 days #90 10/29/23 Unknown Rx tabs mirtazapine 15 mg tablet (Remeron) 7.5 mg (1/2 x 15 mg) PO QHS sleep 10/29/23 Unknown Rx #90 tabs pantoprazole 40 mg tablet,delayed 40 mg PO BID reflux 3 months #180 10/29/23 Unknown Rx release tabs insulin aspart U-100 100 unit/mL See Protocol subcut ACHS 1 month 11/12/23 Unknown Rx (3 mL) subcutaneous pen #15 mL needle (disp) 32 gauge 32 gauge x #100 ea 11/12/23 Unknown Rx 5/16 (Easy Touch Hypodermic Needle) insulin lispro 100 unit/mL 15 unit (0.15 mL) subcut 11/24/23 Unknown Rx subcutaneous pen (Humalog KwikPen 0800,1200,1700 #0 mL (U-100) Insulin) pen needle, diabetic 32 gauge x #100 ea 12/03/23 Unknown Rx 5/32 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 meter,continuous #1 ea 12/24/23 Unknown Rx (FreeStyle Basilio 3 Marcus) 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 sensor (FreeStyle #1 ea 12/24/23 Unknown Rx Basilio 3 Sensor device) furosemide 40 mg tablet (Lasix) 20 mg (1/2 x 40 mg) PO DAILY 03/08/24 Unknown Rx diuretic #60 tabs insulin glargine-yfgn 100 unit/mL 15 unit (0.15 mL) subcut DAILY #15 03/08/24 Unknown Rx (3 mL) subcutaneous pen mL empagliflozin 10 mg tablet 10 mg PO QDAY 03/16/24 Unknown History (Jardiance) ferrous sulfate 325 mg (65 mg 325 mg PO QODAY Supplement 04/05/24 04/04/24 History iron) tablet (FeroSul) Allergy/AdvReac Type Severity Reaction Status Date / Time No Known Allergies Allergy Verified 04/05/24 16:33 Family History Father Arthritis Bleeding disorder Hypertension Kidney disease Cancer Skin Anemia blood clots Emphysema lung Mother Colon cancer Cancer Lung Cancer Diabetes Brother Thyroid disorder Surgical History History of embolic filter insertion History of heart artery stent Status post cardiac surgery H/O cardiac catheterization Presence of IVC filter (04/2021) History of coronary artery stent placement (10/22/13) History of thymectomy Hx of lymph node excision History of excision of pilonidal cyst Social History household members: spouse Smoking Status: Current every day smoker tobacco type: cigarettes Tobacco: How many years used: 55 second hand exposure: Yes alcohol intake: current alcohol intake frequency: holidays/special occasions only substance use type: does not use caffeine: Yes Type: coffee Number of servings: 3 what type of physical activity do you participate in: none frequency: does not exercise seatbelt use: always ROS ROS ED Constitutional Constitutional ED: Reports fever(s); Denies chills or sweats ENT ENT ED: Denies sore throat Cardiovascular Cardiovascular: Denies chest pain, leg edema, palpitations or racing heartbeat Respiratory/Chest Respiratory/Chest: Reports cough and dyspnea; Denies dyspnea on exertion Gastrointestinal Gastrointestinal: Reports nausea and vomiting; Denies abdominal pain or diarrhea Genitourinary Genitourinary ED: Denies dysuria, hematuria or urinary frequency Musculoskeletal Musculoskeletal: Reports myalgias; Denies back pain, extremity pain or neck pain Integumentary Denies rash or wounds Neurologic Neurologic: Denies headache(s), paresthesias or weakness EXAM Physical Exam Const Vital Signs: 04/05/24 16:34 04/05/24 16:39 04/05/24 17:40 Temperature 100 F H Temperature Source Oral Pulse Rate 94 Respiratory Rate 25 H Respiratory Effort Normal Respiratory Pattern Tachypnea Blood Pressure 114/61 Blood Pressure Mean 78 Pulse Ox 92 98 Oxygen Delivery Method Nasal Cannula Nasal Cannula Oxygen Flow Rate (L/min) 6 6 04/05/24 17:50 04/05/24 17:50 04/05/24 19:00 Temperature Temperature Source Pulse Rate 90 80 Respiratory Rate 16 91 H Respiratory Effort Respiratory Pattern Blood Pressure 104/46 L Blood Pressure Mean 65 Pulse Ox 95 22 Oxygen Delivery Method Nasal Cannula Nasal Cannula Oxygen Flow Rate (L/min) 4 6 04/05/24 20:07 04/05/24 20:08 Temperature 100.1 F H 100.1 F H Temperature Source Oral Pulse Rate 75 79 Respiratory Rate 23 H 23 H Respiratory Effort Respiratory Pattern Blood Pressure 103/59 L 103/53 L Blood Pressure Mean 73 69 Pulse Ox 93 93 Oxygen Delivery Method Nasal Cannula Oxygen Flow Rate (L/min) 6 Positive well nourished and well developed Constitutional Narrative: 6 L nasal cannula General Appearance ED: well developed and NAD HEENT Reports moist mucous membranes normocephalic and atraumatic Eyes General Eye ED: Yes normal appearance of both eyes Neck full ROM Chest Wall Chest: Negative for tenderness Resp Resp Narrative: Diminished breath sounds lower lobes Effort and Inspection: symmetric chest movement; Negative for respiratory distress Cardio regular rate, regular rhythm and no murmurs Peripheral Pulses: pulses 2+ throughout GI normal to inspection, nondistended, normoactive bowel sounds and non-tender Palpation: Negative for guarding or rebound tenderness present Extremity normal to inspection General Extremety ED: Negative for edema or tenderness General Extremity: Negative for edema Neuro oriented x3 and no sensory deficits noted Sensorium / Orientation: awake and alert Skin no rashes or lesions noted and no wounds MDM MDM MDM Narrative Medical decision making narrative: Interventions / MDM: Differential diagnosis: Pneumonia, COPD, hypoxia, anemia, guaiac positive stools, atrial fibrillation Diagnosis considered but do not suspect: N/A My EKG interpretation: Rate controlled A-fib at 88, no ST or T wave changes. History of similar A-fib a flutter previous EKG October 2023. Imaging independently reviewed and interpreted by myself: 2 view chest x-ray: Right lower lobe infiltrate External documents reviewed: Echocardiogram 09/04/2023 EF 25%. Test considered but not ordered:N/A ED course: Patient requiring increased oxygen to 6 L with COPD. Temp of 100 respiratory 25 with pulse of 94. Sepsis orders were initiated. Viral swabs, aerosols steroids ordered. Tylenol ordered for elevated temperature. Will reevaluate. 183: 2 view x-ray interpreted myself right lower lobe infiltrate. White count 14.5. Lactic acid 1.3. Creatinine 1.47 stable from previous. Hemoglobin 7.7 down from 9.8,2 months ago. History of anemia and previous blood transfusions. Will discuss with patient Hemoccult testing for further evaluation. 1844: Hemoccult sent with brown stools. Rocephin and Zithromax started. Son and [id number] in the room, reports patient still does smoke. Dropped down to 90% on his 4 L oxygen increased back up to 5 L. 1999: Patient back up to 6 L oxygen no respiratory distress. Guaiac return positive. I ordered for IV Protonix. I discussed with hospitalist Dr. Back for admission to PCU. Re-evaluation: stable Disposition discussed with patient/family/significant other: Patient and family Case discussed with consulting clinician: Hospitalist This note was generated with [employer] dictation software. It may contain incorrect words, spelling, and punctuation that were not noted in checking the note before signing. Lab Data Attestation: I reviewed the patient's lab results. Labs: Laboratory Results - last 24 hr 04/05/24 04/05/24 17:40 20:10 WBC 14.5 H RBC 2.93 L Hgb 7.7 L Hct 25.3 L MCV 86.3 MCH 26.3 L MCHC 30.4 L RDW Std Deviation 54.5 H RDW Coeff of Rafael 17.4 H Plt Count 332 MPV 10.9 Immature Gran % (Auto) 1.400 H Neut % (Auto) 78.1 H Lymph % (Auto) 12.0 L [place] % (Auto) 7.0 Eos % (Auto) 1.2 Baso % (Auto) 0.3 Absolute Neuts (auto) 11.3 H Absolute Lymphs (auto) 1.74 Nucleated RBC % 0.2 PT 13.6 INR 1.0 APTT 25.4 Sodium 142 Potassium 4.7 Chloride 106 Carbon Dioxide 33.0 H Anion Gap 2 L BUN 28 H Creatinine 1.47 H Estim Creat Clear Calc 53.69 Est GFR (MDRD) Af Amer 60 Est GFR (MDRD) Non-Af 50 L BUN/Creatinine Ratio 19.0 Glucose 162 H Lactic Acid 1.3 Calcium 8.7 Total Bilirubin 0.40 AST 6 L ALT 12 L Alkaline Phosphatase 69 Total Creatine Kinase 31 L Troponin I High Sens 33 B-Natriuretic Peptide 476.6 H Total Protein 7.1 Albumin 3.1 L Globulin 4.0 Albumin/Globulin Ratio 0.8 L Blood Type AB POSITIVE Antibody Screen NEGATIVE Radiography Diagnostic Testing: Clinical Impression(s) from Imaging Studies Chest X-Ray 04/05/24 18:18 IMPRESSION: Small right pleural effusion, which may indicate developing infection. Correlation with laboratory values recommended. Otherwise unchanged findings of emphysema and COPD. Reading Location: [facility] Discharge Plan Dx/Rx/DC Orders Clinical Impression: Right lower lobe pneumonia, COPD (chronic obstructive pulmonary disease), Chronic hypoxemic respiratory failure, Anemia, Hypoxia, Atrial fibrillation, controlled, Guaiac positive stools Disposition Disposition: Acute Care Hospital [facility] Discharge Date/Time: 04/05/24 21:23
[2024-04-05] MEDS: MethylPREDNISolone 125 MG/2 ML Vial 60 MG IV (17:37)
[2024-04-05] MEDS: Acetaminophen 500 MG Tablet PO (17:38)
[2024-04-05] MEDS: Ipratropium/Albuterol Sulfate 3 ML AMPUL.NEB INHALATION (17:42)
[2024-04-05 18:07] LABS: Absolute Lymphocyte Count 1.74 X10^3/uL (0.83-4.51); Absolute Neutrophil Count 11.3 X10^3/uL (2.0-7.7); Basophil# 0.05 X10^3/uL; Basophil% 0.3 % (0-1); Eosinophil# 0.18 X10^3/uL; Eosinophils% 1.2 % (0-5); Hematocrit 25.3 % (40-54); Hemoglobin 7.7 g/dL (13.0-16.5); Lymphocyte # 1.74 X10^3/ul (0.83-4.51); Mean Corp Hgb Conc 30.4 g/dL (32-36); Mean Corpuscular Hgb 26.3 pg (27.0-32.0); Mean Corpuscular Volume 86.3 fL (80-94); Mean Platelet Vol. 10.9 fl (6.2-12.0); Monocyte# 1.02 X10^3/uL; NRBC Flagged by Analyzer 0.2 % (0-5); Neutrophil # 11.33 X10^3/uL (2.7-7.7); Neutrophil % 78.1 % (47-70); Platelet Count 332 K/mm3 (150-450); RBC Distribution Width CV 17.4 % (11.6-14.6); RBC Distribution Width SD 54.5 fl (35.1-43.9); Red Blood Count 2.93 M/mm3 (4.6-6.2); White Blood Count 14.5 K/mm3 (4.4-11.0)
[2024-04-05] MEDS: 0.9% Normal Saline (500mL Bag) 500 ML 999 ML IV (18:18)
--- NOTE | 2024-04-05 18:18 | RAD_ITS ---
PROCEDURE: CHEST PA AND LATERAL REASON FOR EXAM: 73-year-old male, cough, shortness of breath and fever. TECHNIQUE: Frontal and lateral views of the chest. COMPARISON: Chest radiograph 03/05/2024. CT chest 02/27/2024. FINDINGS: Prior median sternotomy and CABG. The heart size is normal. The mediastinal contour is unremarkable. Persistent findings of emphysema and bibasilar scarring. Small right pleural effusion. No pneumothorax. Degenerative changes are identified within the thoracic spine. RAD/Chest PA and Lateral IMPRESSION: Small right pleural effusion, which may indicate developing infection. Correla tion with laboratory values recommended. Otherwise unchanged findings of emphysema and COPD. Reading Location: [id number]
[2024-04-05 18:19] LABS: ALB/GLOB Ratio 0.8 RATIO (0.9-2.4); AST(SGOT) 6 U/L (15-37); Alanine Aminotransfer ALT/SGPT 12 U/L (16-61); Albumin, Serum 3.1 g/dL (3.2-5.0); Alkaline Phosphatase 69 U/L (45-117); Anion Gap 2 (5-15); BUN 28 mg/dL (7-18); Calcium,Total 8.7 mg/dL (8.5-10.1); Chloride 106 mmol/L (98-107); Creatinine, Serum 1.47 mg/dL (0.70-1.30); EST Glomerular Filtration Rate 50 mL/min (>60); Est Glom Filt Rate - Afr Amer 60 mL/min (>60); Estimated Creatinine Clearance 53.69 ml/min; Glucose 162 mg/dL (74-106); Potassium 4.7 mmol/L (3.5-5.1); Protein, Total 7.1 g/dL (6.4-8.2); Sodium Level 142 mmol/L (136-145)
[2024-04-05 18:20] LABS: Partial Thromboplast Time 25.4 Seconds (24.1-36.2)
[2024-04-05 18:34] LABS: Prothrombin Time (Protime)PT. 13.6 SECONDS (11.7-14.9)
[2024-04-05 18:37] LABS: Lactic Acid 1.3 mmol/L (0.4-1.9)
[2024-04-05] MEDS: Ceftriaxone 1 GM/50 ML BAG IV (19:19)
--- NOTE | 2024-04-05 19:59 | PCM.HP.STD ---
[facility] General Date of Admission: 04/05/24 Date of Service: 04/05/24 Chief Complaint: SOB, Nausea and Vomiting. [facility] Narrative SAL ALONZO, is a 73 M with a past medical history of essential hypertension; on carvedilol and furosemide, hyperlipidemia; on atorvastatin, obesity; with BMI of 31.5 this admission, DM-2; on empagliflozin, insulin glargine 15 units twice daily plus insulin lispro AC/HS, CAD; s/p stent (2013), history of chronic systolic CHF; with LVEF ~25%, history of ischemic cardiomyopathy; with impending AICD placement, history of atrial fibrillation; not on anticoagulation due to previous GI bleed (PU), history of LLE DVT/PE (2021); s/p IVC filter placement, GERD; on pantoprazole twice daily, history of RA, history of colon polyp, history of basal cell carcinoma, history of non-Hodgkin's lymphoma (1999), history of thymectomy, remote history of pilonidal cyst; s/p excision (1967), history of allergic rhinitis, history of varicose veins of bilateral lower extremities, depression; on mirtazapine and escitalopram, CKD; stage III, chronic anemia; on ferrous sulfate, BPH; on tamsulosin and finasteride, history of failure to thrive in adult, history of COVID-19 plus history of ongoing tobacco abuse; with subsequent asthma/COPD and chronic hypoxic respiratory failure on 4L NC continuous who presents to [facility] ER complaining of shortness of breath, nausea and vomiting. Mr. Alonzo reports his symptoms began approximately 2 weeks prior to admission with a gradual-onset of dyspnea on exertion that progressed to shortness of breath of rest. He also admits to increasing cough with fever up to 101 ?F confirmed by EMS complicated by nausea throughout the day with 1 episode of bilious emesis. He denies associated blood in vomitus, diarrhea or dysuria but he does admit to having to increase his oxygen after being 84% on his normal 4 L so he was turned up to 6L NC prior to arrival. He denies taking any kugr-jnu-vkmpmta remedies at home and he has not seen any healthcare providers since his symptom onset. In the ER he was noted to have x-ray evidence of small Right pleural effusion, which may indicate developing infection with COPD along with 14.5K and Left-shift of 1.4% an fever of 100 ?F concerning for possible Sepsis complicated by clinical evidence of rfwsv-dq-kwfraji respiratory insufficiency in the setting of ongoing tobacco abuse with incidentally noted guaiac positive stools and hemoglobin of 7.7 g/dL present on admission (down from 9.8 g/dL on January 27, 2024) that he was then admitted to the ICU for ongoing care for stay that is expected to extend beyond 2 midnights. [facility] Medical History Ischemic cardiomyopathy COVID-19 Lethargic COPD with acute exacerbation Elevated troponin I level LUIS (acute kidney injury) Hypoxemia Chronic kidney disease (CKD), stage III (moderate) Acute hypoxic on chronic hypercapnic respiratory failure FTT (failure to thrive) in adult Former smoker On home oxygen therapy Bleeding tendency Ulcer High cholesterol History of stress test HTN (hypertension) Tobacco abuse History of pulmonary embolus (PE) (04/30/21) Essential hypertension Type 2 diabetes mellitus DVT (deep venous thrombosis) (05/01/21) Rhinovirus Acute respiratory failure with hypoxia Physical debility COVID-19 in immunocompromised patient Nicotine dependence, cigarettes, uncomplicated Diabetes Arthritis Cancer COPD (chronic obstructive pulmonary disease) History of basal cell carcinoma Atherosclerosis of coronary artery of [place] heart without angina pectoris Pneumonia Non-Hodgkin lymphoma History of pilonidal cyst Allergic rhinitis 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 complications Gastritis Colon polyp Obesity Asthma Chronic bronchitis Positive colorectal cancer screening using Cologuard test RA (rheumatoid arthritis) Home Medications ?Medication ?Instructions ?Recorded ?Last Taken ?Type finasteride 5 mg tablet 5 mg PO DAILY prostate 08/14/22 03/16/23 History tamsulosin 0.4 mg capsule 0.4 mg PO QHS prostate 08/14/22 03/15/23 History multivitamin 1 tab PO DAILY vitamin 09/13/22 03/16/23 History menthol 0.44 %-zinc oxide 20.6 % 1 applic topical 4-6XD PRN skin 03/07/23 Unknown Rx topical ointment (Calmoseptine) irritation #113 grams ferrous sulfate 325 mg (65 mg 325 mg PO LUNCH 30 days #30 tabs 03/21/23 Unknown Rx iron) tablet (FeroSul) carvedilol 3.125 mg tablet 3.125 mg PO BID #60 tabs 06/05/23 Unknown Rx atorvastatin 40 mg tablet 20 mg (1/2 x 40 mg) PO QHS 09/18/23 Unknown Rx cholesterol #90 tabs budesonide 1 mg/2 mL suspension 1 mg (2 mL) inhalation Q12H #120 mL 09/19/23 Unknown Rx for nebulization ipratropium 0.5 mg-albuterol 3 mg 3 ml inhalation Q4H PRN PRN SOB 09/19/23 Unknown Rx (2.5 mg base)/3 mL nebulization &/OR WHEEZING #270 mL soln escitalopram oxalate 10 mg tablet 10 mg PO DAILY mood 90 days #90 10/29/23 Unknown Rx tabs mirtazapine 15 mg tablet (Remeron) 7.5 mg (1/2 x 15 mg) PO QHS sleep 10/29/23 Unknown Rx #90 tabs pantoprazole 40 mg tablet,delayed 40 mg PO BID reflux 3 months #180 10/29/23 Unknown Rx release tabs insulin aspart U-100 100 unit/mL See Protocol subcut ACHS 1 month 11/12/23 Unknown Rx (3 mL) subcutaneous pen #15 mL needle (disp) 32 gauge 32 gauge x #100 ea 11/12/23 Unknown Rx 5/16 (Easy Touch Hypodermic Needle) insulin lispro 100 unit/mL 15 unit (0.15 mL) subcut 11/24/23 Unknown Rx subcutaneous pen (Humalog KwikPen 0800,1200,1700 #0 mL (U-100) Insulin) nitroglycerin 0.4 mg sublingual 0.4 mg sublingual Q5M PRN chest 12/03/23 Unknown Rx tablet (Nitrostat) pain #30 tabs pen needle, diabetic 32 gauge x #100 ea 12/03/23 Unknown Rx 32 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 meter,continuous #1 ea 12/24/23 Unknown Rx (FreeStyle Basilio 3 [place]) 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 sensor (FreeStyle #1 ea 12/24/23 Unknown Rx Basilio 3 Sensor device) furosemide 40 mg tablet (Lasix) 20 mg (1/2 x 40 mg) PO DAILY 03/08/24 Unknown Rx diuretic #60 tabs insulin glargine-yfgn 100 unit/mL 15 unit (0.15 mL) subcut DAILY #15 01/13/25 Unknown Rx (3 mL) subcutaneous pen mL empagliflozin 10 mg tablet 10 mg PO QDAY 03/16/24 Unknown History (Jardiance) Allergy/AdvReac Type Severity Reaction Status Date / Time No Known Allergies Allergy Verified 04/05/24 16:33 Family History Father Arthritis Bleeding disorder Hypertension Kidney disease Cancer Skin Anemia blood clots Emphysema lung Mother Colon cancer Cancer Lung Cancer Diabetes Brother Thyroid disorder Surgical History History of embolic filter insertion History of heart artery stent Status post cardiac surgery H/O cardiac catheterization Presence of IVC filter (04/2021) History of coronary artery stent placement (10/22/13) History of thymectomy Hx of lymph node excision History of excision of pilonidal cyst Social History household members: spouse Smoking Status: Current every day smoker tobacco type: cigarettes Tobacco: How many years used: 55 second hand exposure: Yes alcohol intake: current alcohol intake frequency: holidays/special occasions only substance use type: does not use caffeine: Yes Type: coffee Number of servings: 3 what type of physical activity do you participate in: none frequency: does not exercise seatbelt use: always ROS ROS Narrative Review of Systems: Constitutional: Patient admits to fever but denies chills or sweats. Eyes: Patient denies changes in vision or discharge from eyes. ENT: Patient denies runny nose, sore throat or ear pain. Resp: Patient admits to nonproductive cough and dyspnea on exertion that progressed to shortness of breath of breath with wheezing as per HPI. CV: Patient denies chest pain, palpitations, heart racing or lower extremity edema. GI: Patient admits to nausea and vomiting with bilious emesis but he denies abdominal pain, diarrhea, gross blood in stools or emesis. : Patient denies dysuria, hematuria or urinary frequency. MSK: Patient admits to myalgias but denies arthralgias. Skin: Patient denies rash, abscess, wounds or jaundice. Psych: Patient denies symptoms of uncontrolled depression or anxiety. Neuro: Patient denies headache, paresthesias or focal neurologic weakness. Allergy: Patient denies lip swelling, tongue swelling or urticaria. Hematology: Patient denies easy bleeding or easy bruisability but is noted to have Hemoccult positive stools on admission. Endocrinology: Patient denies polyuria, polydipsia or polyphagia. 14 point review of systems otherwise negative except for positives noted above in HPI. Vital Signs Vital Signs Vital Signs: 04/05/24 16:34 04/05/24 16:39 04/05/24 17:40 Temperature 100 F H Temperature Source Oral Pulse Rate 94 Respiratory Rate 25 H Respiratory Effort Normal Respiratory Pattern Tachypnea Blood Pressure 114/61 Blood Pressure Mean 78 Pulse Ox 92 98 Oxygen Delivery Method Nasal Cannula Nasal Cannula Oxygen Flow Rate (L/min) 6 6 04/05/24 17:50 04/05/24 17:50 04/05/24 19:00 Temperature Temperature Source Pulse Rate 90 80 Respiratory Rate 16 91 H Respiratory Effort Respiratory Pattern Blood Pressure 104/46 L Blood Pressure Mean 65 Pulse Ox 95 22 Oxygen Delivery Method Nasal Cannula Nasal Cannula Oxygen Flow Rate (L/min) 4 6 Weight Weight: 225 lb 8.526 oz Body Mass Index (BMI) 31.4 Physical Exam Const alert, oriented x3 and no apparent distress Constitutional Narrative: Obese with chronically ill appearance. General Appearance: cooperative HEENT normocephalic, head/scalp atraumatic, hearing grossly normal bilaterally and moist oral mucous membranes Eyes PERRL, EOMs intact bilaterally and conjunctivae normal Neck no lymphadenopathy and supple Resp Resp Narrative: Diminished breath sounds throughout with scattered wheezes. Cardio regular rate and regular rhythm GI normal to inspection, nondistended, normoactive bowel sounds, soft to palpation, non-tender and non-distended Extremity normal to inspection, full ROM and no clubbing, cyanosis or edema Skin Skin Narrative: Patient has no evidence of rash, abscess, jaundice or wounds. Neuro oriented x3, CN's II-XII intact bilaterally, moves all extremities and no focal motor deficits Sensorium / Orientation: awake, alert, oriented to person, oriented to place and oriented to time Speech: speech normal Psych affect normal Results Medical Records Data Attestation: I reviewed the patient's medical records Lab / Micro Data Attestation: I reviewed the patient's lab results. 04/05/24 17:40 04/05/24 17:40 Labs: Laboratory Results - last 24 hr 04/05/24 17:40: WBC 14.5 H, RBC 2.93 L, Hgb 7.7 L, Hct 25.3 L, MCV 86.3, MCH 26.3 L, MCHC 30.4 L, RDW Std Deviation 54.5 H, RDW Coeff of Rafael 17.4 H, Plt Count 332, MPV 10.9, Immature Gran % (Auto) 1.400 H, Neut % (Auto) 78.1 H, Lymph % (Auto) 12.0 L, [place] % (Auto) 7.0, Eos % (Auto) 1.2, Baso % (Auto) 0.3, Absolute Neuts (auto) 11.3 H, Absolute Lymphs (auto) 1.74, Nucleated RBC % 0.2, PT 13.6, INR 1.0, APTT 25.4, Sodium 142, Potassium 4.7, Chloride 106, Carbon Dioxide 33.0 H, Anion Gap 2 L, BUN 28 H, Creatinine 1.47 H, Estim Creat Clear Calc 53.69, Est GFR (MDRD) Af Amer 60, Est GFR (MDRD) Non-Af 50 L, BUN/Creatinine Ratio 19.0, Glucose 162 H, Lactic Acid 1.3, Calcium 8.7, Total Bilirubin 0.40, AST 6 L, ALT 12 L, Alkaline Phosphatase 69, Total Protein 7.1, Albumin 3.1 L, Globulin 4.0, Albumin/Globulin Ratio 0.8 L Micro: Microbiology 04/05/24 18:45 Stool Stool Occult Blood ([facility]) - Final Occult Blood Positive 04/05/24 17:45 Mucosa - Nose SARS-CoV-2, Influenza & RSV (PCR) - Final Imaging Radiology Impression Chest X-Ray 04/05/24 18:18 IMPRESSION: Small right pleural effusion, which may indicate developing infection. Correlation with laboratory values recommended. Otherwise unchanged findings of emphysema and COPD. Reading Location: [id number] Assessment & Plan Assessment/Plan (1) Right lower lobe pneumonia: QUALIFIERS: Pneumonia type: due to unspecified organism Qualified Code(s): J18.9 - Pneumonia, unspecified organism (2) Nausea & vomiting: QUALIFIERS: Vomiting type: unspecified Qualified Code(s): R11.2 - Nausea with vomiting, unspecified (3) COPD with exacerbation: (4) Respiratory insufficiency: (5) Anemia: QUALIFIERS: Anemia type: unspecified type Qualified Code(s): D64.9 - Anemia, unspecified (6) Guaiac positive stools: PLAN: Plan 1. X-ray evidence of small Right pleural effusion, which may indicate developing infection with COPD along with 14.5K and Left-shift of 1.4% an fever of 100 ?F concerning for possible Sepsis due to suspected aspiration after recent nausea and vomiting with bilious emesis - Admit to ICU for treatment under the Sepsis protocol with limited fluid bolus due to known pre-existing chronic systolic CHF. Give IV piperacillin-tazobactam to cover Gram-negatives and anaerobes plus continue IV Azithromycin to cover atypical organisms and await culture and sensitivity data. Check urinary antigens to Streptococcus pneumonia and Legionella species. Give acetaminophen as needed for nrgt-cp-bbowvvga (level 1-5/10) pain or fever. Give morphine IV as needed for severe (level 6-10/10) pain. Finally, we will consult pulmonary/critical care to see this patient on rounds in the a.m. for further recommendations with help appreciated in advance. 2. AE asthma/COPD in the setting of ongoing tobacco abuse complicating #1 - Resume IV Solu-Medrol 60 mg IV twice daily plus scheduled and as needed nebulizers. Tobacco cessation will be strongly encouraged with nicotine patch offered to control cravings. 3. Wgljw-hx-Sklsjhu respiratory insufficiency attributable to #1 & #2 - Wean additional supplemental oxygen as tolerated back to 4L NC. 4. Acute Cystitis; with microscopic hematuria compounding #1 - #3 - Patient started on IV Zosyn for #1 & #2. Await culture and sensitivity data to potentially narrow antibiotic spectrum. 5. Incidentally noted guaiac positive stools and hemoglobin of 7.7 g/dL present on admission (down from 9.8 g/dL on January 27, 2024) in the setting of known previous GI bleed due to PUD and chronic anemia adding to the medical complexity of #1 - #4 - Keep strict n.p.o. Continue continuous IV pantoprazole infusion begun in ER. Type and screen blood and transfuse for hemoglobin less than 7 g/dL. Finally, we will consult gastroenterology to see this patient on rounds in the a.m. for further recommendations regarding endoscopy this admission with help appreciated in advance. 6. History of chronic systolic CHF; with LVEF ~25% (08/2023) plus history of ischemic cardiomyopathy; with impending AICD placement - Check BNP and recheck CXR in a.m. 7. Obesity; with BMI of 31.5 this admission with history of yhxhvyx-fr-phhimj as an adult adding to the burden of disease outlined from #1 - #5 - Weight loss will be recommended. Check TSH. This complicates his case and may hamper recovery. 8. Essential Hypertension; on carvedilol and furosemide - Hold scheduled antihypertensives until infection outlined in #1 has been neutralized. 9. Hyperlipidemia; on atorvastatin - Resume statin once patient is able to safely tolerate oral intake. 10. DM-2; on empagliflozin, insulin glargine 15 units twice daily plus insulin lispro 15 units AC - Continue insulin glargine as scheduled previously with the patient on Solu-Medrol for #2. Give the lowest intensity sliding scale insulin plus fingerstick blood sugar every 6 hours with patient n.p.o. due to #4. 11. CAD; s/p stent (2013) - Noted. 12. History of atrial fibrillation; not on anticoagulation due to previous GI bleed (PUD) - Noted patient currently in normal sinus rhythm. 13. History of DVT/PE (2021); s/p IVC filter placement - Noted. 14. GERD; on pantoprazole twice daily - Patient was switched to the IV pantoprazole infusion for #4. 15. History of RA - Stable no evidence of acute flare at this time. 16. History of colon polyp - Noted with potential contribution to #4. 17. History of basal cell carcinoma - Noted. 18. History of non-Hodgkin's lymphoma - Noted. 19. History of thymectomy - Noted. 20. History of pilonidal cyst; s/p excision - Noted. 21. History of allergic rhinitis - Stable. 22. History of varicose veins of bilateral lower extremities - Noted. 23. Depression; on mirtazapine and escitalopram - Restart current regimen when patient resumes oral intake. 24. CKD; stage III - Stable. Check renal indices daily to ensure continued stability. 25. BPH; on tamsulosin and finasteride - Restart these agents after GI evaluation. 26. History of COVID-19 - Noted. 27. DVT prophylaxis - SCD's only in light of #4. Total time: Approximately (but not less than) 75 minutes. Sepsis Attestation Sepsis Alert: Yes Sepsis Attestation: Sepsis Ruled Out Date exam was performed: 04/05/24 Time exam was performed: 21:00 Possible Source of Sepsis: Pulmonary Fluid Resuscitation Fluid resuscitation indicated?: Yes Fluid Resuscitation ordered: Lesser volume fluid bolus ordered Amount of fluid ordered: 1 Reason for lesser fluid bolus:: Concern for fluid overload and Heart failure Sepsis Note Date exam was performed: 04/06/24 Time exam was performed: 01:00 Sepsis Attestation: Sepsis re-evaluation was performed Response to fluids: Fluid responsive hypotension Charges/Coding Visit Charges Inpatient E&M: 63168 Init Hosp L3
--- NOTE | 2024-04-05 20:30 | CT_ITS ---
PROCEDURE: ABDOMEN/PELVIS WITHOUT CONT REASON FOR EXAM: COPD. Cough. Shortness of breath. Heart failure. TECHNIQUE: Abdomen and pelvis CT without intravenous contrast. COMPARISON: CT abdomen/pelvis from 07/09/2022. Coronal and sagittal 2D reformatted images were provided for better evaluation. FINDINGS: Lung bases demonstrates a moderate right-sided pleural effusion and small left pleural effusion with adjacent dependent airspace consolidations. Coronary artery calcifications are present. There is bilateral bronchial wall thickening. The nonenhanced liver, spleen, pancreas, biliary system, and adrenal glands are unremarkable. Abdominal aorta demonstrates a normal caliber with extensive atherosclerotic calcifications. There is cholelithiasis. There is trace pericholecystic stranding. IVC filter is noted. There is a punctate nonobstructing left renal stone. No hydronephrosis or hydroureter is present. There is bilateral perinephric stranding. There is an exophytic right renal cyst measuring 3.5 cm. There is a subtle hyperdensity involving the right renal cortex measuring 0.9 cm. Urinary bladder is distended. Prostate calcifications are noted. No colonic obstruction or pericolonic inflammatory changes are present. There is mild retained stool in the colon. Appendix is unremarkable. Small bowel demonstrates a normal caliber. No free air or free fluid is identified. There is a small fat containing umbilical hernia. Evaluation of the osseous structures demonstrates degenerative changes. There is levoscoliosis of the lumbar spine. CT/Abdomen/Pelvis without Cont IMPRESSION: 1. Moderate right-sided pleural effusion and small left pleural effusion with a djacent airspace consolidations as well as bilateral bronchial wall thickening. 2. Cholelithiasis. There is subtle trace pericholecystic stranding. Correlate for cholecystitis. Consider further evaluation with gallbladder ultrasound. 3. Punctate nonobstructing left renal stone. 4. Hyperdense focus involving the right kidney measuring 0.9 cm may relate to a proteinaceous or hemorrhagic cyst. Additional right renal cysts are present. 5. Additional findings as above. One or more dose reduction techniques were used (e.g., Automated exposure contr ol, adjustment of the mA and/or kV according to patient size, use of iterative reconstruction technique). Reading Location: [facility]
[2024-04-05] MEDS: Azithromycin 500 MG in 0.9% Normal Saline (250mL Bag) 250 ML 255 MG IV (20:46)
[2024-04-05] MEDS: Pantoprazole Sodium 80 MG in 0.9% Normal Saline (50mL Bag) 15 ML 420 MG IV BOLUS (21:05)
[2024-04-05] MEDS: 0.9% Normal Saline (1000mL) 1,000 ML 999 ML IV ×2 (21:12→22:28)
[2024-04-05 21:32] LABS: CPK Total, Creatine Kinase 31 U/L (39-308); Troponin-I HS 33 pg/mL (3.0-78.0)
[2024-04-05 21:33] LABS: BNP,B-Type NATRIURETIC PEPTIDE 476.6 pg/mL (0-100)
--- NOTE | 2024-04-05 21:42 | CASEMGMT ---
Care Management Face to Face with patient for initial transition planning/care coordination assessment in the ED.? This blurb writer introduced self and role at [facility]. Patient alert and oriented. Patient willing to participate in assessment and is able to answer all questions appropriately.? Care providers, pharmacy, and demographics verified. Admitting Diagnosis: Anemia Other diagnosis history: ?COPD, HTN, Type 2 diabetes, RA PCP: Suman Specialists: Mani Zapata, Lissett Preferred Pharmacy: [facility] Insurance: ?[employer] Prescription Benefit: Yes Living Will/HPOA: ?Would like to complete while admitted LNOK: Son Living Arrangements: Lives with son and DIL in one story home, 3 stairs to enter.? Patient independent with ADLs, family assists with IADLs.? Transportation: family drives DME: ?O2 through [employer], 4 liters continuous, shower chair, walker, cane, bedside commode, grab bars in shower HHC: none SNF/Rehab: none Community Resources: ?Palliative Care Behavioral Health History: none Patient goals: Patient wishes to discharge home. ? Disposition Plan: admission to acute; RN CM/SW to follow for discharge planning needs that may arise. Reyna Cruz, AURIST, [facility]
[2024-04-05 21:43] LABS: Color, Urine Yellow (Yellow); Glucose, Dipstick 1000 mg/dl (Normal); Ketone-Dipstick Negative (Negative); Leukocyte Esterase-Dipstick 500 /ul (Negative); Nitrite-Dipstick Negative (Negative); Occult Blood-Urine 25 /ul (Negative); Protein-Dipstick 30 mg/dl (Negative); Specific Gravity, Urine 1.015 (1.002-1.030); Urine Bilirubin Dipstick Negative (Negative); Urine Clarity Cloudy (Clear); Urine Urobilinogen Normal (Normal)
[2024-04-05 21:49] LABS: Bacteria 1+ /hpf (None Seen); Mucous, Urine 0 SEEN /hpf (<or=2+); Red Blood Cells-Urine 5-10 SEEN /hpf (0-5); Renal Epithelial Cells 5-10 SEEN /hpf (0-5); Squamous Epithelial Cells - UA 0-5 SEEN /hpf (0-5); White Blood Cells >100 SEEN /hpf (0-5)
[2024-04-05 21:50] LABS: Yeast-Urine 3+ /hpf (None Seen)
[2024-04-05] MEDS: Piperacil/Tazobactam 3.375 GM in 0.9% Normal Saline (50mL MB+) 50 ML IV (23:17)
[2024-04-05] MEDS: Insulin Lispro 100 UNIT/ML INSULN.PEN SC (23:20)
[2024-04-05 23:41] LABS: Bedside Glucose 250 mg/dL (74-106)
[2024-04-05 23:58] LABS: Blood Gas Specimen Type VEN; Comment Air bubble in sample; O2 Delivery Device Cannula; SITE Not entered; VBG BASE EXCESS 0 mmol/L (-1.0-3.5); VBG Bicarbonate 25 mmol/L (22-26); VBG PO2 138 mmHg (25-40); VBG SO2 99 % (50-70); VBG TCO2 26 mmol/L (23-33); VBG pCO2 41.2 mmHg (41-51); VBG pH 7.39 (7.32-7.42)
[2024-04-06] VITALS (28 sets, daily range): BP systolic 97–138; BP diastolic 48–74; PULSE 64–88; RESP 15–24; TEMP 36.2–36.9; O2SAT 89–100; BMI 30.6
--- NOTE | 2024-04-06 05:55 | RAD_ITS ---
PROCEDURE: CHEST 1 VIEW (PORTABLE) REASON FOR EXAM: Pneumonia. COPD. TECHNIQUE: AP portable chest examination. COMPARISON: Prior examinations, including 04/05/2024, 03/05/2024 FINDINGS: Emphysematous changes most prominent of the upper lobes. Hazy bibasilar airspace disease, slightly more prominent on current examination. No pneumothorax. Small pleural effusion on the right. Remaining lung markings otherwise appears stable. Heart size and great vessels are stable. There is evidence of prior sternotomy. Osseous thorax appears intact. EKG wires overlie the chest. RAD/Chest 1 View (Portable) IMPRESSION: 1. Hazy bibasilar airspace disease, slightly more prominent on current examinat ion. Small pleural effusion on the right. Correlate for an infectious or inflammatory process. Follow-up to resolution r ecommended. 2. Mild emphysematous changes Reading Location: [id number]
[2024-04-06] MEDS: Piperacil/Tazobactam 3.375 GM in 0.9% Normal Saline (50mL MB+) 50 ML IV ×3 (06:25→23:20)
[2024-04-06] MEDS: Insulin Lispro 100 UNIT/ML INSULN.PEN SC ×3 (06:31→23:23)
[2024-04-06 06:52] LABS: Bedside Glucose 250 mg/dL (74-106)
--- NOTE | 2024-04-06 07:48 | EX.PCM.CONCC ---
Assessment & Plan Assessment/Plan (1) Chronic hypoxemic respiratory failure: PLAN: Plan RECOMMENDATIONS: 1. Continue supplemental oxygen at 4 L/min per baseline. 2. Obtain and send sputum for culture. 3. Transfuse 1 unit of packed red blood cells as ordered. Check H&H posttransfusion. 4. Continue PPI therapy. 5. Continue scheduled bronchodilators and steroids. 6. Obtain gastroenterology consultation. IMPRESSIONS: 1. Chronic hypoxemic respiratory failure Clinical concern for COPD exacerbation secondary to underlying pneumonia. Given that the patient does report a productive cough, we will plan to obtain sputum for culture. Otherwise, the patient has a baseline oxygen requirement of 4 L/min. He will be continued on empiric antimicrobials along with bronchodilators and steroids as ordered. 2. Acute on chronic anemia The patient presented to the hospital with worsening anemia in the setting of a positive stool guaiac. The plan is to transfuse packed red blood cells as ordered. Check H&H posttransfusion. Continue PPI therapy as ordered, pending evaluation by gastroenterology. 3. History of heart failure with reduced ejection fraction/hypertension/hyperlipidemia/coronary artery disease/GERD Complicates care, management, recovery and prognosis. Continue home medications as indicated. This note was generated with [employer] dictation software. It may contain incorrect words, spelling, and punctuation that were not noted in checking the note before signing. HPI Consult Data Date of Consult: 04/06/24 HPI Narrative Reason for Consultation: Pneumonia HPI Narrative: The patient is a 73-year-old male, with a history as outlined below, who presented to the emergency department on April 06 with shortness of breath, nausea and vomiting. The patient is currently followed in the pulmonary medicine clinic due to a history of COPD, tobacco dependency in remission, chronic hypoxemic respiratory failure and bronchiectasis. The patient has a baseline oxygen requirement of 4 L/min. The patient reported the presence of chronic sputum production and was recently treated for pneumonia on an outpatient basis with doxycycline. On presentation to the emergency department, the patient was documented to have a low-grade fever but was otherwise hemodynamically stable and maintaining appropriate oxygen saturations on 6 L/min via nasal cannula. Laboratory evaluation was notable for a white blood cell count of 14,000. Hemoglobin was noted to be 7.7 g/dL with a platelet count of 332,000. Coagulation profile was within normal limits. Chemistry profile was notable for a serum bicarbonate of 33 and creatinine of 1.47. Lactate was within normal limits. BNP was elevated at 476 with a normal troponin. Urine analysis was positive for leukocyte esterase and 1+ urine bacteria. CT abdomen/pelvis demonstrated a moderate right-sided pleural effusion and small left effusion with adjacent airspace consolidation. There was evidence of cholelithiasis with pericholecystic stranding. Stool for occult blood was noted to be positive. COVID, influenza and RSV PCR's were negative. Blood and urine cultures were collected. The patient was started on antimicrobials, bronchodilators and steroids. He was admitted to the medical intensive care unit for further management. [facility] Medical History Ischemic cardiomyopathy COVID-19 Lethargic COPD with acute exacerbation Elevated troponin I level LUIS (acute kidney injury) Hypoxemia Chronic kidney disease (CKD), stage III (moderate) Acute hypoxic on chronic hypercapnic respiratory failure FTT (failure to thrive) in adult Former smoker On home oxygen therapy Bleeding tendency Ulcer High cholesterol History of stress test HTN (hypertension) Tobacco abuse History of pulmonary embolus (PE) (04/30/21) Essential hypertension Type 2 diabetes mellitus DVT (deep venous thrombosis) (05/01/21) Rhinovirus Acute respiratory failure with hypoxia Physical debility COVID-19 in immunocompromised patient Nicotine dependence, cigarettes, uncomplicated Diabetes Arthritis Cancer COPD (chronic obstructive pulmonary disease) History of basal cell carcinoma Atherosclerosis of coronary artery of [place] heart without angina pectoris Pneumonia Non-Hodgkin lymphoma History of pilonidal cyst Allergic rhinitis 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 complications Gastritis Colon polyp Obesity Asthma Chronic bronchitis Positive colorectal cancer screening using Cologuard test RA (rheumatoid arthritis) Home Medications ?Medication ?Instructions ?Recorded ?Last Taken ?Type finasteride 5 mg tablet 5 mg PO DAILY prostate 08/14/22 03/16/23 History tamsulosin 0.4 mg capsule 0.4 mg PO QHS prostate 08/14/22 03/15/23 History multivitamin 1 tab PO DAILY vitamin 09/13/22 03/16/23 History menthol 0.44 %-zinc oxide 20.6 % 1 applic topical 4-6XD PRN skin 03/07/23 Unknown Rx topical ointment (Calmoseptine) irritation #113 grams carvedilol 3.125 mg tablet 3.125 mg PO BID #60 tabs 06/05/23 Unknown Rx atorvastatin 40 mg tablet 20 mg (1/2 x 40 mg) PO QHS 09/18/23 Unknown Rx cholesterol #90 tabs budesonide 1 mg/2 mL suspension 1 mg (2 mL) inhalation Q12H #120 mL 09/19/23 Unknown Rx for nebulization ipratropium 0.5 mg-albuterol 3 mg 3 ml inhalation Q4H PRN PRN SOB 09/19/23 Unknown Rx (2.5 mg base)/3 mL nebulization &/OR WHEEZING #270 mL soln escitalopram oxalate 10 mg tablet 10 mg PO DAILY mood 90 days #90 10/29/23 Unknown Rx tabs mirtazapine 15 mg tablet (Remeron) 7.5 mg (1/2 x 15 mg) PO QHS sleep 10/29/23 Unknown Rx #90 tabs pantoprazole 40 mg tablet,delayed 40 mg PO BID reflux 3 months #180 10/29/23 Unknown Rx release tabs insulin aspart U-100 100 unit/mL See Protocol subcut ACHS 1 month 11/12/23 Unknown Rx (3 mL) subcutaneous pen #15 mL needle (disp) 32 gauge 32 gauge x #100 ea 11/12/23 Unknown Rx 5/16 (Easy Touch Hypodermic Needle) insulin lispro 100 unit/mL 15 unit (0.15 mL) subcut 11/24/23 Unknown Rx subcutaneous pen (Humalog KwikPen 0800,1200,1700 #0 mL (U-100) Insulin) pen needle, diabetic 32 gauge x #100 ea 12/03/23 Unknown Rx 32 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 meter,continuous #1 ea 12/24/23 Unknown Rx (FreeStyle Basilio 3 [place]) 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 sensor (FreeStyle #1 ea 12/24/23 Unknown Rx Basilio 3 Sensor device) furosemide 40 mg tablet (Lasix) 20 mg (1/2 x 40 mg) PO DAILY 03/08/24 Unknown Rx diuretic #60 tabs insulin glargine-yfgn 100 unit/mL 15 unit (0.15 mL) subcut DAILY #15 03/08/24 Unknown Rx (3 mL) subcutaneous pen mL empagliflozin 10 mg tablet 10 mg PO QDAY 03/16/24 Unknown History (Jardiance) ferrous sulfate 325 mg (65 mg 325 mg PO QODAY Supplement 04/05/24 04/04/24 History iron) tablet (FeroSul) Allergy/AdvReac Type Severity Reaction Status Date / Time No Known Allergies Allergy Verified 04/05/24 16:33 Family History Father Arthritis Bleeding disorder Hypertension Kidney disease Cancer Skin Anemia blood clots Emphysema lung Mother Colon cancer Cancer Lung Cancer Diabetes Brother Thyroid disorder Surgical History History of embolic filter insertion History of heart artery stent Status post cardiac surgery H/O cardiac catheterization Presence of IVC filter (04/2021) History of coronary artery stent placement (10/22/13) History of thymectomy Hx of lymph node excision History of excision of pilonidal cyst Social History household members: spouse Smoking Status: Current every day smoker tobacco type: cigarettes Tobacco: How many years used: 55 second hand exposure: Yes alcohol intake: current alcohol intake frequency: holidays/special occasions only substance use type: does not use caffeine: Yes Type: coffee Number of servings: 3 what type of physical activity do you participate in: none frequency: does not exercise seatbelt use: always ROS ROS Narrative 10 systems were reviewed with pertinent positives as noted in the HPI above. Physical Exam Const alert and no apparent distress General Appearance: cooperative HEENT normocephalic and head/scalp atraumatic Eyes PERRL, EOMs intact bilaterally and conjunctivae normal Neck supple General: trachea midline Chest inspection of chest normal Resp normal respiratory effort Auscultation: wheezes and diminished lung sounds Cardio regular rate and regular rhythm GI normal to inspection, nondistended, normoactive bowel sounds Extremity no clubbing, cyanosis or edema Skin no rashes or lesions noted Neuro CN's II-XII intact bilaterally, moves all extremities and no focal motor deficits Psych cooperative and affect normal Lab / Micro Data 04/06/24 06:32 04/06/24 06:32 Labs: Laboratory Results - last 24 hr 04/05/24 17:40: WBC 14.5 H, RBC 2.93 L, Hgb 7.7 L, Hct 25.3 L, MCV 86.3, MCH 26.3 L, MCHC 30.4 L, RDW Std Deviation 54.5 H, RDW Coeff of Rafael 17.4 H, Plt Count 332, MPV 10.9, Immature Gran % (Auto) 1.400 H, Neut % (Auto) 78.1 H, Lymph % (Auto) 12.0 L, [place] % (Auto) 7.0, Eos % (Auto) 1.2, Baso % (Auto) 0.3, Absolute Neuts (auto) 11.3 H, Absolute Lymphs (auto) 1.74, Nucleated RBC % 0.2, PT 13.6, INR 1.0, APTT 25.4, Sodium 142, Potassium 4.7, Chloride 106, Carbon Dioxide 33.0 H, Anion Gap 2 L, BUN 28 H, Creatinine 1.47 H, Estim Creat Clear Calc 53.69, Est GFR (MDRD) Af Amer 60, Est GFR (MDRD) Non-Af 50 L, BUN/Creatinine Ratio 19.0, Glucose 162 H, Lactic Acid 1.3, Calcium 8.7, Total Bilirubin 0.40, AST 6 L, ALT 12 L, Alkaline Phosphatase 69, Total Creatine Kinase 31 L, Troponin I High Sens 33, B-Natriuretic Peptide 476.6 H, Total Protein 7.1, Albumin 3.1 L, Globulin 4.0, Albumin/Globulin Ratio 0.8 L 04/05/24 20:10: Blood Type AB POSITIVE, Antibody Screen NEGATIVE 04/05/24 21:16: Urine Color Yellow, Urine Clarity Cloudy, Urine pH 6.0, Ur Specific [place] 1.015, Urine Protein 30 H, Urine Glucose (UA) 1000 H, Urine Ketones Negative, Urine Occult Blood 25 H, Urine Nitrite Negative, Urine Bilirubin Negative, Urine Urobilinogen Normal, Ur Leukocyte Esterase 500 H, Urine RBC 5-10 SEEN, Urine WBC >100 SEEN, Ur Squamous Epith Cells 0-5 SEEN, Ur Renal Epithelial Cell 5-10 SEEN, Urine Bacteria 1+, Urine Mucus 0 SEEN, Urine Yeast 3+ 04/05/24 23:19: POC Glucose 250 H 04/06/24 06:30: POC Glucose 250 H Micro: Microbiology 04/05/24 18:45 Stool Stool Occult Blood ([facility]) - Final Occult Blood Positive 04/05/24 17:45 Mucosa - Nose SARS-CoV-2, Influenza & RSV (PCR) - Final ABG Data ABG results: ABG 04/05/24 23:53 Specimen Type JESUSITA Sample Site Not entered O2 % 6.0 VBG pH 7.39 VBG pO2 138 H VBG HCO3 25 VBG Total CO2 26 VBG O2 Sat (Calc) 99 H VBG Base Excess 0 POC Mix VBG pCO2 Pt Tmp 41.2 O2 Delivery Device Cannula Clinical Comments Air bubble in sample Imaging Radiology Impression Chest X-Ray 04/05/24 18:18 IMPRESSION: Small right pleural effusion, which may indicate developing infection. Correlation with laboratory values recommended. Otherwise unchanged findings of emphysema and COPD. Reading Location: [facility] Abdomen/Pelvis CT 04/05/24 20:30 IMPRESSION: 1. Moderate right-sided pleural effusion and small left pleural effusion with adjacent airspace consolidations as well as bilateral bronchial wall thickening. 2. Cholelithiasis. There is subtle trace pericholecystic stranding. Correlate for cholecystitis. Consider further evaluation with gallbladder ultrasound. 3. Punctate nonobstructing left renal stone. 4. Hyperdense focus involving the right kidney measuring 0.9 cm may relate to a proteinaceous or hemorrhagic cyst. Additional right renal cysts are present. 5. Additional findings as above. One or more dose reduction techniques were used (e.g., Automated exposure control, adjustment of the mA and/or kV according to patient size, use of iterative reconstruction technique). Reading Location: [facility] Chest X-Ray 04/06/24 05:55 IMPRESSION: 1. Hazy bibasilar airspace disease, slightly more prominent on current examination. Small pleural effusion on the right. Correlate for an infectious or inflammatory process. Follow-up to resolution recommended. 2. Mild emphysematous changes Reading Location: [facility] Charges/Coding Visit Charges Inpatient E&M: 96553 Init Hosp L3
[2024-04-06 09:45] LABS: Hemoglobin A1c 9.2 % (3.8-5.6)
[2024-04-06] MEDS: MethylPREDNISolone 125 MG/2 ML Vial 60 MG IV ×2 (09:55→21:13)
[2024-04-06] MEDS: Pantoprazole Sodium 40 MG in 0.9% Normal Saline (100mL MB+) 100 ML 330 MG IV ×2 (09:57→21:13)
[2024-04-06] MEDS: Ferrous Sulfate 325 MG Tablet PO (09:58)
--- NOTE | 2024-04-06 10:41 | PN.HOSP_ITS ---
Subjective Subjective Doing well, no issues overnight. Feels better today Objective Data Objective Data Vital Signs: Vital Signs Temp Pulse Resp BP Pulse Ox O2 Del Method O2 Flow Rate 97.1 F L 66 22 H 107/65 96 Room Air 6 04/06/24 09:00 04/06/24 09:00 04/06/24 09:00 04/06/24 09:00 04/06/24 09:00 04/06/24 09:00 04/06/24 08:00 Oxygen Flow Rate (L/min) 6 Oxygen Delivery Method Room Air Weight: 218 lb 11.177 oz Body Mass Index (BMI) 30.6 Intake & Output: Intake and Output for Last 24 Hours 04/05/24 04/06/24 04/07/24 03:59 03:59 03:59 Intake Total 2379.75 / 2379.75 40 / 40 Output Total 800 / 800 Balance 2379.75 / 2379.75 -760 / -760 Lab / Micro Data 04/05/24 17:40 04/05/24 17:40 Labs: Laboratory Results - last 24 hr 04/05/24 17:40: WBC 14.5 H, RBC 2.93 L, Hgb 7.7 L, Hct 25.3 L, MCV 86.3, MCH 26.3 L, MCHC 30.4 L, RDW Std Deviation 54.5 H, RDW Coeff of Rafael 17.4 H, Plt Count 332, MPV 10.9, Immature Gran % (Auto) 1.400 H, Neut % (Auto) 78.1 H, Lymph % (Auto) 12.0 L, [place] % (Auto) 7.0, Eos % (Auto) 1.2, Baso % (Auto) 0.3, A bsolute Neuts (auto) 11.3 H, Absolute Lymphs (auto) 1.74, Nucleated RBC % 0.2, PT 13.6, INR 1.0, APTT 25.4, Sodium 142, Potassium 4.7, Chloride 106, Carbon Dioxide 33.0 H, Anion Gap 2 L, BUN 28 H, Creatinine 1.47 H, Estim Creat Clear Calc 53.69, Est GFR (MDRD) Af Amer 60, Est GFR (MDRD) Non-Af 50 L, BUN/Creatinine Ratio 19.0, Glucose 162 H, Lactic Acid 1.3, Calcium 8.7, Total Bilirubin 0.40, AST 6 L, ALT 12 L, Alkaline Phosphatase 69, Total Creatine Kinase 31 L, Troponin I High Sens 33, B-Natriuretic Peptide 476.6 H, Total Protein 7.1, Albumin 3.1 L, Globulin 4.0, Albumin/Globulin Ratio 0.8 L 04/05/24 20:10: Blood Type AB POSITIVE, Antibody Screen NEGATIVE 04/05/24 21:16: Urine Color Yellow, Urine Clarity Cloudy, Urine pH 6.0, Ur Specific [place] 1.015, Urine Protein 30 H, Urine Glucose (UA) 1000 H, Urine Ketones Negative, Urine Occult Blood 25 H, Urine Nitrite Negative, Urine Bilirubin Negative, Urine Urobilinogen Normal, Ur Leukocyte Esterase 500 H, Urine RBC 5-10 SEEN, Urine WBC >100 SEEN, Ur Squamous Epith Cells 0-5 SEEN, Ur Renal Epithelial Cell 5-10 SEEN, Urine Bacteria 1+, Urine Mucus 0 SEEN, Urine Yeast 3+ 04/05/24 23:19: POC Glucose 250 H 04/06/24 06:30: POC Glucose 250 H 04/06/24 06:32: Hemoglobin A1c 9.2 H Micro: Microbiology 04/05/24 18:45 Stool Stool Occult Blood ([facility]) - Final Occult Blood Positive 04/05/24 17:45 Mucosa - Nose SARS-CoV-2, Influenza & RSV (PCR) - Final ABG Data ABG results: ABG 04/05/24 23:53 Specimen Type JESUSITA Sample Site Not entered O2 % 6.0 VBG pH 7.39 VBG pO2 138 H VBG HCO3 25 VBG Total CO2 26 VBG O2 Sat (Calc) 99 H VBG Base Excess 0 POC Mix VBG pCO2 Pt Tmp 41.2 O2 Delivery Device Cannula Clinical Comments Air bubble in sample Radiography Diagnostic Testing: Radiology Impression Chest X-Ray 04/05/24 18:18 IMPRESSION: Small right pleural effusion, which may indicate developing infection. Correlation with laboratory values recommended. Otherwise unchanged findings of emphysema and COPD. Reading Location: [facility] Abdomen/Pelvis CT 04/05/24 20:30 IMPRESSION: 1. Moderate right-sided pleural effusion and small left pleural effusion with adjacent airspace consolidations as well as bilateral bronchial wall thickening. 2. Cholelithiasis. There is subtle trace pericholecystic stranding. Correlate for cholecystitis. Consider further evaluation with gallbladder ultrasound. 3. Punctate nonobstructing left renal stone. 4. Hyperdense focus involving the right kidney measuring 0.9 cm may relate to a proteinaceous or hemorrhagic cyst. Additional right renal cysts are present. 5. Additional findings as above. One or more dose reduction techniques were used (e.g., Automated exposure control, adjustment of the mA and/or kV according to patient size, use of iterative reconstruction technique). Reading Location: [facility] Chest X-Ray 04/06/24 05:55 IMPRESSION: 1. Hazy bibasilar airspace disease, slightly more prominent on current examination. Small pleural effusion on the right. Correlate for an infectious or inflammatory process. Follow-up to resolution recommended. 2. Mild emphysematous changes Reading Location: [facility] Physical Exam Narrative General: Alert, Oriented x3, Cooperative, No apparent distress HEENT: Atraumatic, PERRLA, EOMI, Normocephalic Oral: Moist Mucosa Neck: Supple, No JVD Lungs: Diminished, Normal air movement, No rhonchi, No wheeze, No rales Cardiovascular: Regular rate, Regular Rhythm, Normal S1, Normal S2, No murmurs Abdomen: Soft, Non Tender, Non-Distended, No Hepato-splenomegaly Extremities: No edema, Capillary Refill Less than 3 Seconds Skin: No rashes, No breakdown Musculoskeletal: No Tenderness to Palpation of Joints or Extremities Neurological: No focal neurological deficits, Motor Exam 5/5 strength throughout, Sensory exam intact to light touch and pain Psych/Mental Status: Normal Affect, Appropriate Assessment & Plan Assessment/Plan (1) Right lower lobe pneumonia: QUALIFIERS: Pneumonia type: due to unspecified organism Qualified Code(s): J18.9 - Pneumonia, unspecified organism (2) COPD with exacerbation: (3) Respiratory insufficiency: PLAN: Plan 1. Acute hypoxic insufficiency secondary to pneumonia in the setting of history of COPD ? Continue with Zosyn and azithromycin ? Continue with steroids and inhalers ? VBG was unremarkable 2. CAD status post stent/chronic systolic CHF/essential HTN/HLD/new onset A-fib ? Stress test in the beginning of October did not show any reversible perfusion defects ? He had an echo on 09/04/2023 with an EF of 25% mildly dilated LV with severe global hypokinesis and a PASP of 30 mmHg ? Continue with his home blood pressure medications as well as his diuretic ? Not a candidate for anticoagulation secondary to a history of recurrent GI bleeds as well as iron deficiency anemia 3. DM2 ? Will hold his oral regimen ? Continue with long-acting and sliding scale insulin ? Accu-Cheks ACHS ? Will monitor make adjustments as necessary 4. 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 The AVMs are likely related to his rheumatoid arthritis ? Continue with PPI ? Has an IVC filter in place ? Hemoglobin on admission was 7.7, will recheck 5. Anxiety/depression ? Stable ? Continue with his home medications 6. BPH ? Stable ? Continue with his home medications DVT: SCD Charges/Coding Visit Charges Inpatient E&M: 16176 Subs Hosp L2
[2024-04-06 10:56] LABS: Absolute Lymphocyte Count 0.91 X10^3/uL (0.83-4.51); Absolute Neutrophil Count 10.1 X10^3/uL (2.0-7.7); Basophil# 0.02 X10^3/uL; Basophil% 0.2 % (0-1); Hematocrit 22.3 % (40-54); Hemoglobin 6.7 g/dL (13.0-16.5); Lymphocyte # 0.91 X10^3/ul (0.83-4.51); Lymphocyte % 7.8 % (19-41); Mean Corpuscular Hgb 25.8 pg (27.0-32.0); Mean Corpuscular Volume 85.8 fL (80-94); Mean Platelet Vol. 11.3 fl (6.2-12.0); Monocyte# 0.48 X10^3/uL; Monocyte% 4.1 % (0-10); NRBC Flagged by Analyzer 0.2 % (0-5); Neutrophil # 10.12 X10^3/uL (2.7-7.7); Neutrophil % 86.7 % (47-70); Platelet Count 295 K/mm3 (150-450); RBC Distribution Width CV 17.5 % (11.6-14.6); RBC Distribution Width SD 54.3 fl (35.1-43.9); White Blood Count 11.7 K/mm3 (4.4-11.0)
[2024-04-06 10:59] LABS: Anion Gap 3 (5-15); BUN 30 mg/dL (7-18); BUN/Creat Ratio 21.9 RATIO (10-20); Calcium,Total 8.2 mg/dL (8.5-10.1); Chloride 108 mmol/L (98-107); Creatinine, Serum 1.37 mg/dL (0.70-1.30); EST Glomerular Filtration Rate 54 mL/min (>60); Est Glom Filt Rate - Afr Amer 65 mL/min (>60); Estimated Creatinine Clearance 56.78 ml/min; Glucose 255 mg/dL (74-106); Potassium 4.8 mmol/L (3.5-5.1); Sodium Level 141 mmol/L (136-145)
[2024-04-06] MEDS: Ipratropium/Albuterol Sulfate 3 ML AMPUL.NEB INHALATION ×2 (12:31→19:11)
--- NOTE | 2024-04-06 12:46 | CASEMGMT ---
Social Work SW met w/pt to complete LW/POA. Pt does have the documents but would like to update them. Pt would like to list his son Ray first and his son Jin second. However, pt does not have Jin's address at this time. SW asked pt to get Jin's address, and SW can return tomorrow to complete the document. Pt is also getting a blood transfusion at present, SW will have pt sign once he is done with the blood transfusion. SW to follow up later today vs. tomorrow. ROHIT Ramos
[2024-04-06 12:56] LABS: Bedside Glucose 192 mg/dL (74-106)
--- NOTE | 2024-04-06 12:56 | CHAPLAIN ---
Type of Pastoral Visit _x__ Initial Visit ___ Follow-up Visit ___ On-call Visit ___ General Patient Visit ___ Spiritual Assessment ___ Family Conference ___ Bereavement ___ Rapid Response ___ Code Blue ___ Other (describe below) Pastoral Care Referral From _x__ Patient ___ Family ___ Nurse ___ Physician ___ Alumni Relations Manager ___ [place]mer ___ Other (describe below) Sacrament/Intervention _x__ Active listening ___ Anointing ___ Confucianist ___ Bereavement ___ Communion ___ Lily exploration ___ ___ Life review ___ Prayer ___ Reconciliation ___ Sacrament of Sick _x__ Supportive presence ___ Wedding ___ Other (describe below) Pastoral Comments patient acknowledges that he has not been well and 'it's been a long time now'; pt is offered support and encouraging words; pt states that he is fine; when asked about how he jose m, pt says I don't really know; offer of support as desired; pt says that he doesn't need anything
[2024-04-06] MEDS: 0.9% Normal Saline (1000mL) 1,000 ML 15 ML IV (14:29)
--- NOTE | 2024-04-06 15:22 | PCM.PRE.AN2 ---
ASA Classification* ASA Classification ASA Classification: 4 and E Assessment & Plan Anesthesia* Anesthesia Assessment Anesthesia Assessment: Discussed sedation and/or anesthesia options, risks, benefits, and alternatives with patient/parents/legal guardian/POA. Questions invited. The patient/parents/legal guardian/POA seems to understand and agrees to proceed with anesthesia plan. Reviewed the physical assessment, medical history, allergy history and patient home medications list prior to surgery/procedure/anesthetic and documented any changes. Performed airway and anesthesia risk assessments. Anesthesia Type Anesthesia Type: MAC History Source History Obtained from:: Patient and Chart Anesthesia Focused Assessment* Temperature: 97.6 F Pulse Rate: 67 Blood Pressure: 121/73 Respiratory Rate: 23 Pulse Ox: 95 Oxygen Delivery Method: Room Air Oxygen Flow Rate (L/min): 4 Airway Assessment Mouth opens: >3 cm Mallampati Score: II Teeth Condition: Dentures (Patient has full upper and lower dentures. They are out.) Neck Range of motion (ROM): Full ROM Focused Labs Anesthesia Preop lab: CBC WBC 11.7 K/mm3 (4.4-11.0) H 04/06/24 06:32 04/06/24 RBC 2.60 M/mm3 (4.6-6.2) L 04/06/24 06:32 04/06/24 Hgb 6.7 g/dL (13.0-16.5) L 04/06/24 06:32 04/06/24 Hct 22.3 % (40-54) L 04/06/24 06:32 04/06/24 Plt Count 295 K/mm3 (150-450) 04/06/24 06:32 04/06/24 CHEMISTRY Potassium 4.8 mmol/L (3.5-5.1) 04/06/24 06:32 04/06/24 Sodium 141 mmol/L (136-145) 04/06/24 06:32 04/06/24 Magnesium 2.4 mg/dL (1.6-2.6) 01/27/24 13:15 01/27/24 Phosphorus 4.7 mg/dL (2.5-4.9) 11/11/23 05:49 11/11/23 BUN 30 mg/dL (7-18) H 04/06/24 06:32 04/06/24 Creatinine 1.37 mg/dL (0.70-1.30) H 04/06/24 06:32 04/06/24 Glucose 255 mg/dL (74-106) H 04/06/24 06:32 04/06/24 POC Glucose 192 mg/dL (74-106) H 04/06/24 12:37 04/06/24 TSH 1.880 uIU/mL (0.358-3.740) 01/27/24 13:15 01/27/24 COAG PT 13.6 SECONDS (11.7-14.9) 04/05/24 17:40 04/05/24 Pre-Assessment Diagnosis/Proposed Procedure Planned Operative Procedure(s): Esophagogastroduodenoscopy with possible biopsy. Anesthesia History Anesthesia History - ultrasound technol: Anesthesia History - ultrasound technol Hx Hospitalization No 08/08/22 15:27 Any Problems With Anesthesia No 08/08/22 15:27 Cholinesterase deficiency No 08/08/22 15:27 You/Your Family Experience No 08/08/22 15:27 fever (hyperthermia) with Relationship Recent Exposure to Contagious No 08/08/22 15:27 Disease Does patient have nerve No 08/08/22 15:27 stimulator Patient instructed to have device shut off --Does patient have Pacemaker or ICD? When Was Last Pacemaker Check QUESTION #4 FULL TEXT: You/Your Family Experience fever (hyperthermia) with Anesthesia Last Oral Intake Last Oral intake: Last Oral Intake NPO since Meds taken in AM with sips of water? Meds patient instructed to take am of surgery Any additional information?: Yes NPO since: 00:00 Meds taken in AM with sips of water?: Yes PONV PONV - ultrasound technol: PONV - ultrasound technol Female HX of Motion Sickness HX of N/V After Surgery Non-Smoker Duration of Surgery greater than 60 minutes Number of Risk Factors PONV Score Height & Weight Height & Weight: Anesthesia: Height & Weight Height 5 ft 11 in 04/06/24 11:26 Weight: 99.2 kg 04/06/24 11:26 Body Mass Index (BMI) 30.6 04/06/24 06:00 Respiratory Assessment Respiratory Assessment - ultrasound technol: Respiratory Tract Infection Hx - ultrasound technol Hx Respiratory Tract Infection Yes: rhinovirus 08/08/22 15:27 Any additional information?: Yes Hx Respiratory Tract Infection: Yes (Patient had a cold over a month ago. Currently clear.) STOP Sleep Apnea STOP Sleep Apnea - ultrasound technol: STOP Sleep Apnea - ultrasound technol Hx Hypertension Yes 04/05/24 21:43 Hx Sleep Apnea No 04/05/24 21:43 CPAP No 11/14/23 21:10 BIPAP No 11/14/23 21:10 Do you snore loudly (louder No 04/05/24 21:43 than talking or can be heard Do you often feel tired/ No 04/05/24 21:43 fatigued/ sleepy during daytime? Has anyone observed you stop No 04/05/24 21:43 breathing during sleep? STOP Results Negative 04/05/24 21:43 QUESTION #5 FULL TEXT : Do you snore loudly (louder than talking or can be heard through closed doors)? 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 Specify any problems Hx of Preganancy in last 3 N/A 04/05/24 21:43 Months Nurse Filling Out Transfusion TDEVEREAU 04/05/24 21:43 & Questions: Date: 04/05/24 04/05/24 21:43 Time: 21:52 04/05/24 21:43 Patient unable to answer at this time (ie. confused, unrespo /Reproduction History /Reproductive History - ultrasound technol: /Reproductive Hx- ultrasound technol Hx Now Gestational Age (in weeks): EDC: Hx Hx Para Hx Section SAB No 08/08/22 15:27 Active Medications Active Medications: Current Medications Generic Name Dose Route Start Last Admin Trade Name Freq PRN Reason Stop Dose Admin Albuterol/Ipratropium 3 ml 04/06/24 08:45 04/06/24 12:31 Ipratropium/Albuterol Sulfate 3 Ml Ampul.Neb INHALATION 3 ml Q4HWA.RT AJIT Administration Calamine/Phenol 1 applic 04/05/24 21:38 Menthol/Lanolin/Calamine/Znox 113 Gm Tube TOPICAL 6X/DAY PRN skin irritation Protocol Ferrous Sulfate 325 mg 04/06/24 12:00 04/06/24 09:58 Ferrous Sulfate 325 Mg Tablet PO 325 mg LUNCH AJIT Administration Glucagon 1 mg 04/05/24 21:38 Glucagon 1 Mg/Ml Syringe IM X1 PRN Hypoglycemia Protocol Piperacillin Sod/Tazobactam 50 mls @ 12.5 mls/hr 04/05/24 22:00 04/06/24 13:40 Sod 3.375 gm/ Sodium Chloride IV 12.5 mls/hr Q8 AJIT Administration Azithromycin 500 mg/ Sodium 255 mls @ 255 mls/hr 04/06/24 22:00 Chloride IV Q24H AJIT Dextrose 250 mls @ 0 mls/hr 04/05/24 21:38 Dextrose 10%-Water IV .Q0M PRN HYPOGLYCEMIA Protocol As Directed Sodium Chloride 100 mls @ 15 mls/hr 04/05/24 21:49 IV .Q6H40M PRN SALINE FLUSH Sodium Chloride 100 mls @ 15 mls/hr 04/05/24 21:49 IV .Q6H40M PRN Saline Flush Sodium Chloride 100 mls @ 15 mls/hr 04/05/24 21:49 IV .Q6H40M PRN Additional IVPB Infusion Pantoprazole Sodium 40 mg/ 110 mls @ 330 mls/hr 04/06/24 10:00 04/06/24 11:10 Sodium Chloride IV Infused Q12 AJIT Infusion Sodium Chloride 1,000 mls @ 15 mls/hr 04/06/24 14:30 04/06/24 14:29 IV 04/09/24 09:09 15 mls/hr .Q48H AJIT Administration Protocol Insulin Glargine 15 unit 04/06/24 10:00 04/06/24 09:57 Insulin Glargine-Yfgn 100 Unit/Ml Pen SC Not Given DAILY [facility] Insulin Human Lispro 0 unit 04/06/24 00:00 04/06/24 12:39 Insulin Lispro 100 Unit/Ml Insuln.Pen SC Not Given Q6 [facility] Protocol Methylprednisolone 60 mg 04/06/24 10:00 04/06/24 09:55 Methylprednisolone 125 Mg/2 Ml Vial IV 60 mg BID AJIT Administration Sodium Chloride 10 - 40 ml 04/05/24 21:49 0.9% Saline Lock 10 Ml Syringe IV UD PRN SALINE FLUSH [facility] Medical History Ischemic cardiomyopathy COVID-19 Lethargic COPD with acute exacerbation Elevated troponin I level LUIS (acute kidney injury) Hypoxemia Chronic kidney disease (CKD), stage III (moderate) Acute hypoxic on chronic hypercapnic respiratory failure FTT (failure to thrive) in adult Former smoker On home oxygen therapy Bleeding tendency Ulcer High cholesterol History of stress test HTN (hypertension) Tobacco abuse History of pulmonary embolus (PE) (04/30/21) Essential hypertension Type 2 diabetes mellitus DVT (deep venous thrombosis) (05/01/21) Rhinovirus Acute respiratory failure with hypoxia Physical debility COVID-19 in immunocompromised patient Nicotine dependence, cigarettes, uncomplicated Diabetes Arthritis Cancer COPD (chronic obstructive pulmonary disease) History of basal cell carcinoma Atherosclerosis of coronary artery of [place] heart without angina pectoris Pneumonia Non-Hodgkin lymphoma History of pilonidal cyst Allergic rhinitis 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 complications Gastritis Colon polyp Obesity Asthma Chronic bronchitis Positive colorectal cancer screening using Cologuard test RA (rheumatoid arthritis) Home Medications ?Medication ?Instructions ?Recorded ?Last Taken ?Type finasteride 5 mg tablet 5 mg PO DAILY prostate 08/14/22 03/16/23 History tamsulosin 0.4 mg capsule 0.4 mg PO QHS prostate 08/14/22 03/15/23 History multivitamin 1 tab PO DAILY vitamin 09/13/22 03/16/23 History menthol 0.44 %-zinc oxide 20.6 % 1 applic topical 4-6XD PRN skin 03/07/23 Unknown Rx topical ointment (Calmoseptine) irritation #113 grams carvedilol 3.125 mg tablet 3.125 mg PO BID #60 tabs 04/11/24 Unknown Rx atorvastatin 40 mg tablet 20 mg (1/2 x 40 mg) PO QHS 09/18/23 Unknown Rx cholesterol #90 tabs budesonide 1 mg/2 mL suspension 1 mg (2 mL) inhalation Q12H #120 mL 09/19/23 Unknown Rx for nebulization ipratropium 0.5 mg-albuterol 3 mg 3 ml inhalation Q4H PRN PRN SOB 09/19/23 Unknown Rx (2.5 mg base)/3 mL nebulization &/OR WHEEZING #270 mL soln escitalopram oxalate 10 mg tablet 10 mg PO DAILY mood 90 days #90 10/29/23 Unknown Rx tabs mirtazapine 15 mg tablet (Remeron) 7.5 mg (1/2 x 15 mg) PO QHS sleep 10/29/23 Unknown Rx #90 tabs pantoprazole 40 mg tablet,delayed 40 mg PO BID reflux 3 months #180 10/29/23 Unknown Rx release tabs insulin aspart U-100 100 unit/mL See Protocol subcut ACHS 1 month 11/12/23 Unknown Rx (3 mL) subcutaneous pen #15 mL needle (disp) 32 gauge 32 gauge x #100 ea 11/12/23 Unknown Rx 5/16 (Easy Touch Hypodermic Needle) insulin lispro 100 unit/mL 15 unit (0.15 mL) subcut 11/24/23 Unknown Rx subcutaneous pen (Humalog KwikPen 0800,1200,1700 #0 mL (U-100) Insulin) pen needle, diabetic 32 gauge x #100 ea 12/03/23 Unknown Rx 5/32 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 meter,continuous #1 ea 12/24/23 Unknown Rx (FreeStyle Basilio 3 [place]) 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 sensor (FreeStyle #1 ea 12/24/23 Unknown Rx Basilio 3 Sensor device) furosemide 40 mg tablet (Lasix) 20 mg (1/2 x 40 mg) PO DAILY 03/08/24 Unknown Rx diuretic #60 tabs insulin glargine-yfgn 100 unit/mL 15 unit (0.15 mL) subcut DAILY #15 03/08/24 Unknown Rx (3 mL) subcutaneous pen mL empagliflozin 10 mg tablet 10 mg PO QDAY 03/16/24 Unknown History (Jardiance) ferrous sulfate 325 mg (65 mg 325 mg PO QODAY Supplement 04/05/24 04/06/24 History iron) tablet (FeroSul) Allergy/AdvReac Type Severity Reaction Status Date / Time No Known Allergies Allergy Verified 04/05/24 16:33 Family History Father Arthritis Bleeding disorder Hypertension Kidney disease Cancer Skin Anemia blood clots Emphysema lung Mother Colon cancer Cancer Lung Cancer Diabetes Brother Thyroid disorder Surgical History History of embolic filter insertion History of heart artery stent Status post cardiac surgery H/O cardiac catheterization Presence of IVC filter (04/2021) History of coronary artery stent placement (10/22/13) History of thymectomy Hx of lymph node excision History of excision of pilonidal cyst Social History household members: spouse Smoking Status: Current every day smoker tobacco type: cigarettes Tobacco: How many years used: 55 second hand exposure: Yes alcohol intake: current alcohol intake frequency: holidays/special occasions only substance use type: does not use caffeine: Yes Type: coffee Number of servings: 3 what type of physical activity do you participate in: none frequency: does not exercise seatbelt use: always Review of Systems (Anesthesia) ROS Narrative System reviewed and no additional complaints, except as documented.
--- NOTE | 2024-04-06 16:34 | CON.PCM.GI_ITS ---
HPI Consult Data Date of Consult: 04/06/24 HPI Narrative Reason for Consultation: Nausea and vomiting and hematemesis HPI Narrative: SAL ALONZO, is a73 M with , history of atrial fibrillation; not on anticoagulation due to previous GI bleed (PUD), history of LLE DVT/PE (2021); s/p IVC filter placement, GERD; on pantoprazole twice daily. He presented to to [facility] ER complaining of shortness of breath, nausea and vomiting. He has a history of COPD on chronic 4 L oxygen, diabetes, heart failure with reduced ejection fraction presents 2-week history of increasing cough dyspnea and fevers with myalgias. Denies sick contacts. Remote tobacco. He has been using his nebulizers that helps his dyspnea today nausea and vomiting x 1 with no hematemesis. No diarrhea. No urinary symptoms. EMS had a temp of 101. He was 84% on his 4 L he was brought in on 6 L of oxygen. [facility] Medical History Ischemic cardiomyopathy COVID-19 Lethargic COPD with acute exacerbation Elevated troponin I level LUIS (acute kidney injury) Hypoxemia Chronic kidney disease (CKD), stage III (moderate) Acute hypoxic on chronic hypercapnic respiratory failure FTT (failure to thrive) in adult Former smoker On home oxygen therapy Bleeding tendency Ulcer High cholesterol History of stress test HTN (hypertension) Tobacco abuse History of pulmonary embolus (PE) (04/30/21) Essential hypertension Type 2 diabetes mellitus DVT (deep venous thrombosis) (05/01/21) Rhinovirus Acute respiratory failure with hypoxia Physical debility COVID-19 in immunocompromised patient Nicotine dependence, cigarettes, uncomplicated Diabetes Arthritis Cancer COPD (chronic obstructive pulmonary disease) History of basal cell carcinoma Atherosclerosis of coronary artery of [place] heart without angina pectoris Pneumonia Non-Hodgkin lymphoma History of pilonidal cyst Allergic rhinitis 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 complications Gastritis Colon polyp Obesity Asthma Chronic bronchitis Positive colorectal cancer screening using Cologuard test RA (rheumatoid arthritis) Home Medications ?Medication ?Instructions ?Recorded ?Last Taken ?Type finasteride 5 mg tablet 5 mg PO DAILY prostate 08/1403/16/23 History tamsulosin 0.4 mg capsule 0.4 mg PO QHS prostate 08/1403/15/23 History multivitamin 1 tab PO DAILY vitamin 09/1303/16/23 History menthol 0.44 %-zinc oxide 20.6 % 1 applic topical 4-6X D PRN skin 03/07/23 Unknown Rx topical ointment (Calmoseptine) irritation #113 grams carvedilol 3.125 mg tablet 3.125 mg PO BID #60 tabs Unknown Rx atorvastatin 40 mg tablet 20 mg (1/2 x 40 mg) PO QHS 0 09/18/23 Unknown Rx cholesterol #90 tabs budesonide 1 mg/2 mL suspension 1 mg (2 mL) inhalation Q12H #120 mL 09/19/23 Unknown Rx for nebulization ipratropium 0.5 mg-albuterol 3 mg 3 ml inhalation Q4H PRN PRN SOB 09/19/23 Unknown Rx (2.5 mg base)/3 mL nebulization &/OR WHEEZING #270 mL soln escitalopram oxalate 10 mg tablet 10 mg PO DAILY mood 90 days #90 10/29/23 Unknown Rx tabs mirtazapine 15 mg tablet (Remeron) 7.5 mg (1/2 x 15 mg ) PO QHS sleep 10/29/23 Unknown Rx #90 tabs pantoprazole 40 mg tablet,delayed 40 mg PO BID reflux 3 months #180 10/29/23 Unknown Rx release tabs insulin aspart U-100 100 unit/mL See Protocol subcut A CHS 1 month 11/12/23 Unknown Rx (3 mL) subcutaneous pen #15 mL needle (disp) 32 gauge 32 gauge x #100 ea 11/12/23 Unk nown Rx 07/09 (Easy Touch Hypodermic Needle) insulin lispro 100 unit/mL 15 unit (0.15 mL) subcut Unknown Rx subcutaneous pen (Humalog KwikPen 0800,1200,1700 #0 mL (U-100) Insulin) pen needle, diabetic 32 gauge x #100 ea 12/03/23 Unkno wn Rx 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 meter,continuous #1 ea 12/24/23 Unknown Rx (FreeStyle Basilio 3 [place]) 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 sensor (FreeStyle #1 ea 12/24/23 Unknown Rx Basilio 3 Sensor device) furosemide 40 mg tablet (Lasix) 20 mg (1/2 x 40 mg) PO DAILY 03/08/24 Unknown Rx diuretic #60 tabs insulin glargine-yfgn 100 unit/mL 15 unit (0.15 mL) joyce bcut DAILY #15 03/08/24 Unknown Rx (3 mL) subcutaneous pen mL empagliflozin 10 mg tablet 10 mg PO QDAY 03/16/24 Unkn own History (Jardiance) ferrous sulfate 325 mg (65 mg 325 mg PO QODAY Suppleme nt 04/05/24 04/06/24 History iron) tablet (FeroSul) Allergy/AdvReac Type Severity Reaction Status Date / Time No Known Allergies Allergy Verified 04/05/24 16:33 Family History Father Arthritis Bleeding disorder Hypertension Kidney disease Cancer Skin Anemia blood clots Emphysema lung Mother Colon cancer Cancer Lung Cancer Diabetes Brother Thyroid disorder Surgical History History of embolic filter insertion History of heart artery stent Status post cardiac surgery H/O cardiac catheterization Presence of IVC filter (04/2021) History of coronary artery stent placement (10/22/13) History of thymectomy Hx of lymph node excision History of excision of pilonidal cyst Social History household members: spouse Smoking Status: Current every day smoker tobacco type: cigarettes Tobacco: How many years used: 55 second hand exposure: Yes alcohol intake: current alcohol intake frequency: holidays/special occasions only substance use type: does not use caffeine: Yes Type: coffee Number of servings: 3 what type of physical activity do you participate in: none frequency: does not exercise seatbelt use: always ROS Constitutional Constitutional: Denies fatigue, fever(s), poor appetite, weight gain or weight loss Gastrointestinal Gastrointestinal: Denies belching, bloating, change in bowel habits, change in stool character, chewing difficulty, coffee ground emesis, constipation, cramping, diarrhea, dyspepsia, dysphagia, early satiety, excessive flatus, fecal incontinence, heartburn, hematemesis, hematochezia, hemorrhoids, loose stools, melena, nausea, odynophagia, rectal bleeding, tenesmus, vomiting or weight changes Physical Exam Const alert, oriented x3, no apparent distress and healthy appearing General Appearance: cooperative GI normal to inspection, nondistended, normoactive bowel sounds, soft to palpation, non-tender and non-distended Percussion: normal to percussion Rectal Exam: deferred Lab / Micro Data 04/06/24 06:32 04/06/24 06:32 Labs: Laboratory Results - last 24 hr 04/05/24 17:40: WBC 14.5 H, RBC 2.93 L, Hgb 7.7 L, Hct 25.3 L, MCV 86.3, MCH 26.3 L, MCHC 30.4 L, RDW Std Deviation 54.5 H, RDW Coeff of Rafael 17.4 H, Plt Count 332, MPV 10.9, Immature Gran % (Auto) 1.400 H, Neut % (Auto) 78.1 H, Lymph % (Auto) 12.0 L, [place] % (Auto) 7.0, Eos % (Auto) 1.2, Baso % (Auto) 0.3, A bsolute Neuts (auto) 11.3 H, Absolute Lymphs (auto) 1.74, Nucleated RBC % 0.2, PT 13.6, INR 1.0, APTT 25.4, Sodium 142, Potassium 4.7, Chloride 106, Carbon Dioxide 33.0 H, Anion Gap 2 L, BUN 28 H, Creatinine 1.47 H, Estim Creat Clear Calc 53.69, Est GFR (MDRD) Af Amer 60, Est GFR (MDRD) Non-Af 50 L, BUN/Creatinine Ratio 19.0, Glucose 162 H, Lactic Acid 1.3, Calcium 8.7, Total Bilirubin 0.40, AST 6 L, ALT 12 L, Alkaline Phosphatase 69, Total Creatine Kinase 31 L, Troponin I High Sens 33, B-Natriuretic Peptide 476.6 H, Total Protein 7.1, Albumin 3.1 L, Globulin 4.0, Albumin/Globulin Ratio 0.8 L 04/05/24 20:10: Blood Type AB POSITIVE, Antibody Screen NEGATIVE, Crossmatch See Detail 04/05/24 21:16: Urine Color Yellow, Urine Clarity Cloudy, Urine pH 6.0, Ur Specific [place] 1.015, Urine Protein 30 H, Urine Glucose (UA) 1000 H, Urine Ketones Negative, Urine Occult Blood 25 H, Urine Nitrite Negative, Urine Bilirubin Negative, Urine Urobilinogen Normal, Ur Leukocyte Esterase 500 H, Urine RBC 5-10 SEEN, Urine WBC >100 SEEN, Ur Squamous Epith Cells 0-5 SEEN, Ur Renal Epithelial Cell 5-10 SEEN, Urine Bacteria 1+, Urine Mucus 0 SEEN, Urine Yeast 3+ 04/05/24 23:19: POC Glucose 250 H 04/06/24 06:30: POC Glucose 250 H 04/06/24 06:32: WBC 11.7 H, RBC 2.60 L, Hgb 6.7 L, Hct 22.3 L, MCV 85.8, MCH 25.8 L, MCHC 30.0 L, RDW Std Deviation 54.3 H, RDW Coeff of [place] 17.5 H, Plt Count 295, MPV 11.3, Immature Gran % (Auto) 1.200 H, Neut % (Auto) 86.7 H, Lymph % (Auto) 7.8 L, [place] % (Auto) 4.1, Eos % (Auto) 0.0, Baso % (Auto) 0.2, Absolute Neuts (auto) 10.1 H, Absolute Lymphs (auto) 0.91, Nucleated RBC % 0.2, Sodium 141, Potassium 4.8, Chloride 108 H, Carbon Dioxide 30.0, Anion Gap 3 L, BUN 30 H , Creatinine 1.37 H, Estim Creat Clear Calc 56.78, Est GFR (MDRD) Af Amer 65, E st GFR (MDRD) Non-Af 54 L, BUN/Creatinine Ratio 21.9 H, Glucose 255 H, H emoglobin A1c 9.2 H, Calcium 8.2 L 04/06/24 12:37: POC Glucose 192 H Micro: Microbiology 04/05/24 18:45 Stool Stool Occult Blood ([facility]) - Final Occult Blood Positive 04/05/24 17:45 Mucosa - Nose SARS-CoV-2, Influenza & RSV (PCR) - Final ABG Data ABG results: ABG 04/05/24 23:53 Specimen Type JESUSITA Sample Site Not entered O2 % 6.0 VBG pH 7.39 VBG pO2 138 H VBG HCO3 25 VBG Total CO2 26 VBG O2 Sat (Calc) 99 H VBG Base Excess 0 POC Mix VBG pCO2 Pt Tmp 41.2 O2 Delivery Device Cannula Clinical Comments Air bubble in sample Imaging Radiology Impression Chest X-Ray 04/05/24 18:18 IMPRESSION: Small right pleural effusion, which may indicate developing infection. Correlation with laboratory values recommended. Otherwise unchanged findings of emphysema and COPD. Reading Location: [facility] Abdomen/Pelvis CT 04/05/24 20:30 IMPRESSION: 1. Moderate right-sided pleural effusion and small left pleural effusion with adjacent airspace consolidations as well as bilateral bronchial wall thickening. 2. Cholelithiasis. There is subtle trace pericholecystic stranding. Correlate for cholecystitis. Consider further evaluation with gallbladder ultrasound. 3. Punctate nonobstructing left renal stone. 4. Hyperdense focus involving the right kidney measuring 0.9 cm may relate to a proteinaceous or hemorrhagic cyst. Additional right renal cysts are present. 5. Additional findings as above. One or more dose reduction techniques were used (e.g., Automated exposure control, adjustment of the mA and/or kV according to patient size, use of iterative reconstruction technique). Reading Location: [facility] Chest X-Ray 04/06/24 05:55 IMPRESSION: 1. Hazy bibasilar airspace disease, slightly more prominent on current examination. Small pleural effusion on the right. Correlate for an infectious or inflammatory process. Follow-up to resolution recommended. 2. Mild emphysematous changes Reading Location: [facility] Assessment & Plan Assessment/Plan (1) Acute anemia: PLAN: Plan Chronic anemia -Baseline hemoglobin appears to run between 7.0 and 8.0 He has a history of acute GI bleed 03/19-status post upper endoscopy Findings: The examined esophagus was normal. The entire examined stomach was normal. Four 3 mm angiodysplastic lesions with bleeding were found in the second portion of the duodenum, in the third portion of the duodenum and in the fourth portion of the duodenum. Coagulation for hemostasis using heater probe was successful. Estimated blood loss was minimal. Two 5 mm angiodysplastic lesions without bleeding were found in the jejunum. Coagulation for bleeding prevention using argon plasma at 0.3 liters/minute and 20 campbell was successful. Estimated blood loss was minimal. Impression: - Normal esophagus. - Normal stomach. 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 Treated with a heater probe. - Two non-bleeding angiodysplastic lesions in the jejunum. Treated with argon plasma coagulation (APC). 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 Patient will undergo repeat upper endoscopy. He was explained alternatives, risk and benefits include not withstanding bleeding, infection, sepsis, perforation, need for charge and . He will have an ASA of 3.. Charges/Coding Visit Charges Inpatient E&M: 01815 Init Hosp L3
--- NOTE | 2024-04-06 17:18 | PCM.POST.ANE ---
Anesthesia: Postop Eval I Current Vital Signs Temperature: 97.9 F Pulse Rate: 79 Blood Pressure: 126/54 Respiratory Rate: 18 Pulse Ox: 92 Oxygen Delivery Method: Nasal Cannula Oxygen Flow Rate (L/min): 4 Assessment Airway patent: Yes Spontaneous unlabored respirations: Yes Mental status: Asleep (Arousable) nausea: No Vomiting: No Anesthesia Complication: No Fluid Hydration Crystalloid volume administer (ml): 200 Total IV fluid infused: 200 Progress Note Anesthesia document: Postop Eval 1 completed: Yes
--- NOTE | 2024-04-06 17:19 | OP.CCLET_ITS ---
04/06/2024 Donna Will [facility] [address] [place] [address] Re : Upper GI endoscopy procedure for Jaydon Quintana Dear Dr. Will This procedure was performed on Saturday, April 06, 2024. My impressions and recommendations are as follows: Impressions : - Normal esophagus. - No gross lesions in the entire stomach. - Three bleeding angiodysplastic lesions in the duodenum. Treated with a heater probe. Clip was placed. 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 Recommendations : - Return patient to hospital schreiber for ongoing care. - Clear liquid diet today. - Continue present medications. My findings are described in the full procedure note, which is enclosed. If I can be of further assistance, please feel free to contact me at . Sincerely, Khai Galeana, 04/06/2024 5:18:45 PM This report has been signed electronically.
--- NOTE | 2024-04-06 17:19 | OP.EGD_ITS ---
Patient Name: Jaydon Quintana Procedure Date: 04/06/2024 4:37 PM Date of : 1950 Age: 73 Procedure: Upper GI endoscopy Indications: Acute post hemorrhagic anemia, Iron deficiency anemia, Melena Providers: Khai Galeana DO Medicines: Monitored Anesthesia Care Patient Profile: This is a 73 year old male. Refer to note in patient chart for documentation of history and physical. Patient has symptoms of acute nausea and acute vomiting. Complications: No immediate complications. Procedure: Pre-Anesthesia Assessment: - Prior to the procedure, a History and Physical was performed, and patient medications and allergies were reviewed. The patient is competent. The risks and benefits of the procedure and the sedation options and risks were discussed with the patient. All questions were answered and informed consent was obtained. Patient identification and proposed procedure were verified by the physician. Mental Status Examination: alert and oriented. Airway Examination: normal oropharyngeal airway and neck mobility. Respiratory Examination: clear to auscultation. CV Examination: normal. Prophylactic Antibiotics: The patient does not require prophylactic antibiotics. Prior Anticoagulants: The patient has taken no anticoagulant or antiplatelet agents except for NSAID medication. ASA Grade Assessment: II - A patient with mild systemic disease. After reviewing the risks and benefits, the patient was deemed in satisfactory condition to undergo the procedure. The anesthesia plan was to use monitored anesthesia care (MAC). Immediately prior to administration of medications, the patient was re-assessed for adequacy to receive sedatives. The heart rate, respiratory rate, oxygen saturations, blood pressure, adequacy of pulmonary ventilation, and response to care were monitored throughout the procedure. The physical status of the patient was re-assessed after the procedure. After obtaining informed consent, the endoscope was passed under direct vision. Throughout the procedure, the patient's blood pressure, pulse, and oxygen saturations were monitored continuously. The Colonoscope was introduced through the mouth, and advanced to the jejunum. Small bowel enteroscopy was deemed necessary. The upper GI endoscopy was accomplished without difficulty. The patient tolerated the procedure well. Scope In: 4:51:09 PM Scope Out: 5:02:49 PM Total Procedure Duration Time 0 hours 11 minutes 40 seconds Findings: The examined esophagus was normal. No gross lesions were noted in the entire examined stomach. Three 9 mm angiodysplastic lesions with bleeding were found in the fourth portion of the duodenum. Coagulation for hemostasis using heater probe was successful. Estimated blood loss was minimal. To prevent bleeding post-intervention, one hemostatic clip was successfully placed. 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 There was no bleeding at the end of the procedure. Impression: - Normal esophagus. - No gross lesions in the entire stomach. - Three bleeding angiodysplastic lesions in the duodenum. Treated with a heater probe. Clip was placed. 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 Recommendation: - Return patient to hospital schreiber for ongoing care. - Clear liquid diet today. - Continue present medications. Procedure Code(s): --- Professional --- 37476, Small intestinal endoscopy, enteroscopy beyond second portion of duodenum, not including ileum; with control of bleeding (eg, injection, bipolar cautery, unipolar cautery, laser, heater probe, stapler, plasma chain saw operator) CPT copyright 2021 [employer] [employer]. All rights reserved. The codes documented in this report are preliminary and upon cutter brake lining review may be revised to meet current compliance requirements. Khai Galeana DO 04/06/2024 5:18:45 PM This report has been signed electronically. Number of Addenda: 0 Note Initiated On: 04/06/2024 4:37 PM
--- NOTE | 2024-04-06 18:48 | PCM.POSTANE2 ---
Anesthesia Postop Eval I Sum Postop Eval Completion status Anesthesia document: Postop Eval 1 completed: Yes Anesthesia Postop Eval I Summary Anesthesia Postop Eval I Summary: Anesthesia Postop Eval I: Assessment Summary Airway patent Yes 04/06/24 17:20 Spontaneous unlabored Yes 04/06/24 17:20 respirations Mental status Asleep - Arousable 04/06/24 17:20 nausea No 04/06/24 17:20 Vomiting No 04/06/24 17:20 Anesthesia Postop Eval I: Fluid Summary Crystalloid volume administer 200 04/06/24 17:20 (ml) Colloids volume administered ( ml) Blood Product volume administered (ml) Total IV fluid infused 200 04/06/24 17:20 Anesthesia Postop Eval I: Summary Notes Anesthesia Complication No 04/06/24 17:20 Anesthesia Complication Comment: Post-operative progress note Anesthesia: Postop Eval II Evaluation Mental status: Awake and Calm Pain Level: 0 nausea: No Vomiting: No Complications Anesthesia Complication: No
[2024-04-06 20:09] LABS: Bedside Glucose 223 mg/dL (74-106)
[2024-04-06] MEDS: Azithromycin 500 MG in 0.9% Normal Saline (250mL Bag) 250 ML 255 MG IV (21:14)
[2024-04-06 23:45] LABS: Bedside Glucose 281 mg/dL (74-106)
[2024-04-07] VITALS (8 sets, daily range): BP systolic 122–136; BP diastolic 63–73; PULSE 66–93; RESP 17–20; TEMP 36.2–36.7; O2SAT 92–95; BMI 30.5
[2024-04-07 06:18] LABS: Absolute Lymphocyte Count 0.66 X10^3/uL (0.83-4.51); Absolute Neutrophil Count 8.6 X10^3/uL (2.0-7.7); Basophil# 0.01 X10^3/uL; Basophil% 0.1 % (0-1); Hemoglobin 8.9 g/dL (13.0-16.5); Lymphocyte # 0.66 X10^3/ul (0.83-4.51); Lymphocyte % 6.6 % (19-41); Mean Corp Hgb Conc 29.7 g/dL (32-36); Mean Corpuscular Hgb 25.9 pg (27.0-32.0); Mean Corpuscular Volume 87.5 fL (80-94); Monocyte# 0.54 X10^3/uL; Monocyte% 5.4 % (0-10); NRBC Flagged by Analyzer 0.6 % (0-5); Neutrophil % 86.5 % (47-70); Platelet Count 283 K/mm3 (150-450); RBC Distribution Width CV 16.6 % (11.6-14.6); RBC Distribution Width SD 52.5 fl (35.1-43.9); Red Blood Count 3.43 M/mm3 (4.6-6.2)
[2024-04-07 06:41] LABS: Anion Gap 3 (5-15); BUN 42 mg/dL (7-18); Calcium,Total 8.8 mg/dL (8.5-10.1); Chloride 110 mmol/L (98-107); EST Glomerular Filtration Rate 49 mL/min (>60); Est Glom Filt Rate - Afr Amer 59 mL/min (>60); Estimated Creatinine Clearance 51.86 ml/min; Glucose 259 mg/dL (74-106); Potassium 4.8 mmol/L (3.5-5.1); Sodium Level 142 mmol/L (136-145)
[2024-04-07] MEDS: Piperacil/Tazobactam 3.375 GM in 0.9% Normal Saline (50mL MB+) 50 ML IV ×3 (06:42→22:04)
[2024-04-07] MEDS: Insulin Lispro 100 UNIT/ML INSULN.PEN SC ×4 (06:44→23:58)
[2024-04-07 07:04] LABS: Bedside Glucose 245 mg/dL (74-106)
[2024-04-07] MEDS: Ipratropium/Albuterol Sulfate 3 ML AMPUL.NEB INHALATION ×4 (07:36→19:07)
--- NOTE | 2024-04-07 07:49 | PCM.PN.INT ---
Assessment & Plan Assessment/Plan (1) Chronic hypoxemic respiratory failure: PLAN: Plan RECOMMENDATIONS: 1. Continue supplemental oxygen at 4 L/min per baseline. 2. Continue antimicrobials, pending sputum culture results. 3. Continue bronchodilators and steroids. 4. Continue PPI therapy. 5. Continue to monitor H&H. Transfuse if hemoglobin drops below 7 g/dL. 6. Encourage incentive spirometer use and mobilize patient as tolerated. IMPRESSIONS: 1. Chronic hypoxemic respiratory failure Clinical concern for COPD exacerbation secondary to underlying pneumonia. However, the patient is maintaining appropriate oxygen saturations on his baseline requirement of 4 L/min. At this time, recommend continuing supportive care with antibiotics, bronchodilators and steroids, pending sputum culture results. 2. Acute on chronic anemia The patient presented to the hospital with worsening anemia in the setting of a positive stool guaiac. Subsequent EGD demonstrated angiodysplastic lesions in the duodenum, which were treated by gastroenterology. The patient was transfused 2 units of packed red blood cells with appropriate improvement in his H&H. Plan to continue to monitor blood counts and transfuse as necessary. Continue PPI therapy. 3. History of heart failure with reduced ejection fraction/hypertension/hyperlipidemia/coronary artery disease/GERD Complicates care, management, recovery and prognosis. Continue home medications as indicated. This note was generated with [employer] dictation software. It may contain incorrect words, spelling, and punctuation that were not noted in checking the note before signing. Subjective Subjective The patient was seen and examined at the bedside this morning. Events from the last 24 hours have been reviewed. The patient is currently afebrile, hemodynamically stable and maintaining appropriate oxygen saturations on 4 L/min via nasal cannula, which is his baseline requirement. The patient is documented to be overall net +3.4 L for the hospitalization. White blood cell count is normal this morning with a hemoglobin of 8.9 g/dL and platelet count of 283,000. Creatinine is stable at 1.5. The patient was transfused a total of 2 units of packed red blood cells yesterday. He did undergo upper endoscopy which revealed a normal esophagus with no gross lesions in the stomach. 3 bleeding angiodysplastic lesions were noted in the duodenum which were treated with a heater probe and clipped. Objective Data Objective Data The patient's most recent lab work, culture data and imaging studies have all been personally reviewed. Blood, urine and sputum cultures are pending. Vital Signs: Vital Signs Temp Pulse Resp BP Pulse Ox O2 Del Method O2 Flow Rate 98.0 F 93 18 133/73 H 93 Nasal Cannula 4 04/07/24 02:00 04/07/24 07:36 04/07/24 07:36 04/07/24 02:00 04/07/24 07:36 04/07/24 07:36 04/07/24 07:36 Oxygen Flow Rate (L/min) 4 Oxygen Delivery Method Nasal Cannula Weight: 218 lb 0.595 oz Body Mass Index (BMI) 30.5 Intake & Output: Intake and Output for Last 24 Hours 04/05/24 04/06/24 04/07/24 23:59 23:59 23:59 Intake Total 2329.75 / 2329.75 2165 / 2165 170 / 170 Output Total 1250 / 1250 Balance 2329.75 / 2329.75 915 / 915 170 / 170 Lab / Micro Data Attestation: I reviewed the patient's lab results. 04/07/24 05:33 04/07/24 05:33 Labs: Laboratory Results - last 24 hr 04/05/24 20:10: Crossmatch See Detail 04/06/24 06:32: WBC 11.7 H, RBC 2.60 L, Hgb 6.7 L, Hct 22.3 L, MCV 85.8, MCH 25.8 L, MCHC 30.0 L, RDW Std Deviation 54.3 H, RDW Coeff of Rafael 17.5 H, Plt Count 295, MPV 11.3, Immature Gran % (Auto) 1.200 H, Neut % (Auto) 86.7 H, Lymph % (Auto) 7.8 L, Harding % (Auto) 4.1, Eos % (Auto) 0.0, Baso % (Auto) 0.2, Absolute Neuts (auto) 10.1 H, Absolute Lymphs (auto) 0.91, Nucleated RBC % 0.2, Sodium 141, Potassium 4.8, Chloride 108 H, Carbon Dioxide 30.0, Anion Gap 3 L, BUN 30 H, Creatinine 1.37 H, Estim Creat Clear Calc 56.78, Est GFR (MDRD) Af Amer 65, Est GFR (MDRD) Non-Af 54 L, BUN/Creatinine Ratio 21.9 H, Glucose 255 H, Hemoglobin A1c 9.2 H, Calcium 8.2 L 04/06/24 12:37: POC Glucose 192 H 04/06/24 17:51: POC Glucose 223 H 04/06/24 23:22: POC Glucose 281 H 04/07/24 05:33: WBC 10.0, RBC 3.43 L, Hgb 8.9 L, Hct 30.0 L, MCV 87.5, MCH 25.9 L, MCHC 29.7 L, RDW Std Deviation 52.5 H, RDW Coeff of Rafael 16.6 H, Plt Count 283, MPV 11.0, Immature Gran % (Auto) 1.400 H, Neut % (Auto) 86.5 H, Lymph % (Auto) 6.6 L, Harding % (Auto) 5.4, Eos % (Auto) 0.0, Baso % (Auto) 0.1, Absolute Neuts (auto) 8.6 H, Absolute Lymphs (auto) 0.66 L, Nucleated RBC % 0.6, Sodium 142, Potassium 4.8, Chloride 110 H, Carbon Dioxide 29.0, Anion Gap 3 L, BUN 42 H, Creatinine 1.50 H, Estim Creat Clear Calc 51.86, Est GFR (MDRD) Af Amer 59 L, Est GFR (MDRD) Non-Af 49 L, BUN/Creatinine Ratio 28.0 H, Glucose 259 H, Calcium 8.8 04/07/24 06:43: POC Glucose 245 H Micro: Microbiology 04/05/24 18:45 Stool Stool Occult Blood ([facility]) - Final Occult Blood Positive 04/05/24 17:45 Mucosa - Nose SARS-CoV-2, Influenza & RSV (PCR) - Final Physical Exam Const alert and no apparent distress General Appearance: cooperative HEENT normocephalic and head/scalp atraumatic Eyes PERRL, EOMs intact bilaterally and conjunctivae normal Neck supple General: trachea midline Chest inspection of chest normal Resp normal respiratory effort Auscultation: diminished lung sounds; Negative for rales, rhonchi or wheezes Cardio regular rate and regular rhythm GI normal to inspection, nondistended, normoactive bowel sounds Extremity no clubbing, cyanosis or edema Skin no rashes or lesions noted Neuro CN's II-XII intact bilaterally, moves all extremities and no focal motor deficits Psych cooperative and affect normal Charges/Coding Visit Charges Inpatient E&M: 03280 Subs Hosp L2
--- NOTE | 2024-04-07 08:55 | PN.HOSP_ITS ---
Subjective Subjective Doing well, no issues overnight. EGD with recurrent AVMs which were treated Objective Data Objective Data Vital Signs: Vital Signs Temp Pulse Resp BP Pulse Ox O2 Del Method O2 Flow Rate 98.0 F 93 18 133/73 H 93 Nasal Cannula 4 04/07/24 02:00 04/07/24 07:36 04/07/24 07:36 04/07/24 02:00 04/07/24 07:36 04/07/24 07:36 04/07/24 07:36 Oxygen Flow Rate (L/min) 4 Oxygen Delivery Method Nasal Cannula Weight: 218 lb 0.595 oz Body Mass Index (BMI) 30.5 Intake & Output: Intake and Output for Last 24 Hours 04/06/24 04/07/24 04/08/24 03:59 03:59 03:59 Intake Total 2379.75 / 2379.75 2165 / 2165 120 / 120 Output Total 1250 / 1250 Balance 2379.75 / 2379.75 915 / 915 120 / 120 Lab / Micro Data 04/07/24 05:33 04/07/24 05:33 Labs: Laboratory Results - last 24 hr 04/05/24 20:10: Crossmatch See Detail 04/06/24 06:32: WBC 11.7 H, RBC 2.60 L, Hgb 6.7 L, Hct 22.3 L, MCV 85.8, MCH 25.8 L, MCHC 30.0 L, RDW Std Deviation 54.3 H, RDW Coeff of Rafael 17.5 H, Plt Count 295, MPV 11.3, Immature Gran % (Auto) 1.200 H, Neut % (Auto) 86.7 H, Lymph % (Auto) 7.8 L, Holmes % (Auto) 4.1, Eos % (Auto) 0.0, Baso % (Auto) 0.2, Absolute Neuts (auto) 10.1 H, Absolute Lymphs (auto) 0.91, Nucleated RBC % 0.2, Sodium 141, Potassium 4.8, Chloride 108 H, Carbon Dioxide 30.0, Anion Gap 3 L, BUN 30 H , Creatinine 1.37 H, Estim Creat Clear Calc 56.78, Est GFR (MDRD) Af Amer 65, E st GFR (MDRD) Non-Af 54 L, BUN/Creatinine Ratio 21.9 H, Glucose 255 H, H emoglobin A1c 9.2 H, Calcium 8.2 L 04/06/24 12:37: POC Glucose 192 H 04/06/24 17:51: POC Glucose 223 H 04/06/24 23:22: POC Glucose 281 H 04/07/24 05:33: WBC 10.0, RBC 3.43 L, Hgb 8.9 L, Hct 30.0 L, MCV 87.5, MCH 25.9 L, MCHC 29.7 L, RDW Std Deviation 52.5 H, RDW Coeff of Rafael 16.6 H, Plt Count 283, MPV 11.0, Immature Gran % (Auto) 1.400 H, Neut % (Auto) 86.5 H, Lymph % (Auto) 6.6 L, Holmes % (Auto) 5.4, Eos % (Auto) 0.0, Baso % (Auto) 0.1, Absolute Neuts (auto) 8.6 H, Absolute Lymphs (auto) 0.66 L, Nucleated RBC % 0.6, Sodium 142, Potassium 4.8, Chloride 110 H, Carbon Dioxide 29.0, Anion Gap 3 L, BUN 42 H , Creatinine 1.50 H, Estim Creat Clear Calc 51.86, Est GFR (MDRD) Af Amer 59 L, Est GFR (MDRD) Non-Af 49 L, BUN/Creatinine Ratio 28.0 H, Glucose 259 H, Calcium 8.8 04/07/24 06:43: POC Glucose 245 H Micro: Microbiology 04/05/24 18:45 Stool Stool Occult Blood ([facility]) - Final Occult Blood Positive 04/05/24 17:45 Mucosa - Nose SARS-CoV-2, Influenza & RSV (PCR) - Final Physical Exam Narrative General: Alert, Oriented x3, Cooperative, No apparent distress HEENT: Atraumatic, PERRLA, EOMI, Normocephalic Oral: Moist Mucosa Neck: Supple, No JVD Lungs: Diminished, Normal air movement, No rhonchi, No wheeze, No rales Cardiovascular: Regular rate, Regular Rhythm, Normal S1, Normal S2, No murmurs Abdomen: Soft, Non Tender, Non-Distended, No Hepato-splenomegaly Extremities: No edema, Capillary Refill Less than 3 Seconds Skin: No rashes, No breakdown Musculoskeletal: No Tenderness to Palpation of Joints or Extremities Neurological: No focal neurological deficits, Motor Exam 5/5 strength throughout, Sensory exam intact to light touch and pain Psych/Mental Status: Normal Affect, Appropriate Assessment & Plan Assessment/Plan (1) Right lower lobe pneumonia: QUALIFIERS: Pneumonia type: due to unspecified organism Qualified Code(s): J18.9 - Pneumonia, unspecified organism (2) COPD with exacerbation: (3) Respiratory insufficiency: PLAN: Plan 1. Acute hypoxic insufficiency secondary to pneumonia in the setting of history of COPD ? Continue with Zosyn and azithromycin ? Continue with steroids and inhalers ? VBG was unremarkable 2. CAD status post stent/chronic systolic CHF/essential HTN/HLD/new onset A-fib ? Stress test in the beginning of October did not show any reversible perfusion defects ? He had an echo on 09/04/2023 with an EF of 25% mildly dilated LV with severe global hypokinesis and a PASP of 30 mmHg ? Continue with his home blood pressure medications as well as his diuretic ? Not a candidate for anticoagulation secondary to a history of recurrent GI bleeds as well as iron deficiency anemia 3. DM2 ? Will hold his oral regimen ? Continue with long-acting and sliding scale insulin ? Accu-Cheks ACHS ? Will monitor make adjustments as necessary 4. 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 The AVMs are likely related to his rheumatoid arthritis ? Continue with PPI ? Has an IVC filter in place ? Hemoglobin dropped to 6.7 he was transfused 2 units yesterday currently 8.9. Status post EGD on 04/06/2024 with bleeding AVMs in the duodenum ? Will recheck H&H this afternoon and again tomorrow morning 5. Anxiety/depression ? Stable ? Continue with his home medications 6. BPH ? Stable ? Continue with his home medications DVT: SCD Charges/Coding Visit Charges Inpatient E&M: 54948 Subs Hosp L2
[2024-04-07] MEDS: Pantoprazole Sodium 40 MG in 0.9% Normal Saline (100mL MB+) 100 ML 330 MG IV ×2 (10:18→20:05)
[2024-04-07] MEDS: MethylPREDNISolone 125 MG/2 ML Vial 60 MG IV ×2 (10:20→20:09)
--- NOTE | 2024-04-07 12:06 | CASEMGMT ---
Social Work SW met with pt and assisted pt in completing HCPOA and living will. Pt naming his son Ray and HCPOA. Copy placed on pt chart and original given to pt. JOEY Zuñiga
[2024-04-07] MEDS: Ferrous Sulfate 325 MG Tablet PO (12:17)
[2024-04-07 12:37] LABS: Bedside Glucose 328 mg/dL (74-106)
[2024-04-07 13:55] LABS: Hematocrit 30.7 % (40-54); Hemoglobin 9.2 g/dL (13.0-16.5)
[2024-04-07] MEDS: Insulin Glargine-YFGN 100 UNIT/ML Pen 15 UNIT SC (14:00)
--- NOTE | 2024-04-07 17:14 | PCM.PN.BLA ---
Progress Note Patient underwent an upper endoscopy yesterday. For nausea vomiting. He was discovered to have multiple angiodysplastic lesions in his small bowel and some chronic gastritis in his stomach. Biopsies were taken because he had active bleeding in the small bowel. Physical Exam Narrative General: Alert, Oriented x3, Cooperative, No apparent distress HEENT: Atraumatic, PERRLA, EOMI, Normocephalic Oral: Moist Mucosa Neck: Supple, No JVD Lungs: Diminished, Normal air movement, No rhonchi, No wheeze, No rales Cardiovascular: Regular rate, Regular Rhythm, Normal S1, Normal S2, No murmurs Abdomen: Soft, Non Tender, Non-Distended, No Hepato-splenomegaly Extremities: No edema, Capillary Refill Less than 3 Seconds Skin: No rashes, No breakdown Musculoskeletal: No Tenderness to Palpation of Joints or Extremities Neurological: No focal neurological deficits, Motor Exam 5/5 strength throughout, Sensory exam intact to light touch and pain Psych/Mental Status: Normal Affect, Appropriate Assessment & Plan Assessment/Plan (1) Acute anemia: PLAN: Plan Chronic anemia -Baseline hemoglobin appears to run between 7.0 and 8.0 He has a history of acute GI bleed 03/19-status post upper endoscopy Findings: The examined esophagus was normal. The entire examined stomach was normal. Four 3 mm angiodysplastic lesions with bleeding were found in the second portion of the duodenum, in the third portion of the duodenum and in the fourth portion of the duodenum. Coagulation for hemostasis using heater probe was successful. Estimated blood loss was minimal. Two 5 mm angiodysplastic lesions without bleeding were found in the jejunum. Coagulation for bleeding prevention using argon plasma at 0.3 liters/minute and 20 campbell was successful. Estimated blood loss was minimal. Impression: - Normal esophagus. - Normal stomach. 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 Treated with a heater probe. - Two non-bleeding angiodysplastic lesions in the jejunum. Treated with argon plasma coagulation (APC). 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 04/07/2024- Findings: The examined esophagus was normal. No gross lesions were noted in the entire examined stomach. Three 9 mm angiodysplastic lesions with bleeding were found in the fourth portion of the duodenum. Coagulation for hemostasis using heater probe was successful. Estimated blood loss was minimal. To prevent bleeding post-intervention, one hemostatic clip was successfully placed. Clip social service liaison: [email or web address]. There was no bleeding at the end of the procedure. Impression: - Normal esophagus. - No gross lesions in the entire stomach. - Three bleeding angiodysplastic lesions in the duodenum. Treated with a heater probe. Clip was placed. Clip social service liaison: [email or web address]. 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 Recommendation: -Advance diet as tolerated -He has a history of atrial fibrillation and history of PE and is status post IVC filter. -He is high risk for recurrent GI bleeding Visit Charges Inpatient E&M: 78871 Subs Hosp L3
[2024-04-07 17:18] LABS: Bedside Glucose 303 mg/dL (74-106)
[2024-04-07] MEDS: Azithromycin 500 MG in 0.9% Normal Saline (250mL Bag) 250 ML 255 MG IV (20:32)
[2024-04-08 00:21] LABS: Bedside Glucose 337 mg/dL (74-106)
[2024-04-08 02:00] VITALS: BP 108/73; PULSE 80; RESP 20; TEMP 36.3; O2SAT 100
[2024-04-08 05:23] VITALS: BMI 30.4
[2024-04-08 05:24] LABS: Absolute Lymphocyte Count 0.44 X10^3/uL (0.83-4.51); Absolute Neutrophil Count 8.3 X10^3/uL (2.0-7.7); Basophil# 0.01 X10^3/uL; Basophil% 0.1 % (0-1); Hematocrit 28.2 % (40-54); Hemoglobin 8.6 g/dL (13.0-16.5); Lymphocyte # 0.44 X10^3/ul (0.83-4.51); Lymphocyte % 4.7 % (19-41); Mean Corp Hgb Conc 30.5 g/dL (32-36); Mean Corpuscular Hgb 26.7 pg (27.0-32.0); Mean Corpuscular Volume 87.6 fL (80-94); Mean Platelet Vol. 11.3 fl (6.2-12.0); Monocyte# 0.54 X10^3/uL; Monocyte% 5.8 % (0-10); NRBC Flagged by Analyzer 0.5 % (0-5); Neutrophil # 8.25 X10^3/uL (2.7-7.7); Neutrophil % 88.2 % (47-70); POSITIVE DIFFERENTIAL YES; Platelet Count 308 K/mm3 (150-450); RBC Distribution Width CV 17.1 % (11.6-14.6); RBC Distribution Width SD 54.2 fl (35.1-43.9); Red Blood Count 3.22 M/mm3 (4.6-6.2); White Blood Count 9.4 K/mm3 (4.4-11.0)
[2024-04-08 05:45] LABS: Anion Gap 4 (5-15); BUN 45 mg/dL (7-18); BUN/Creat Ratio 30.6 RATIO (10-20); Calcium,Total 8.5 mg/dL (8.5-10.1); Chloride 110 mmol/L (98-107); Creatinine, Serum 1.47 mg/dL (0.70-1.30); EST Glomerular Filtration Rate 50 mL/min (>60); Est Glom Filt Rate - Afr Amer 60 mL/min (>60); Estimated Creatinine Clearance 52.92 ml/min; Glucose 340 mg/dL (74-106); Potassium 4.6 mmol/L (3.5-5.1); Sodium Level 143 mmol/L (136-145)
[2024-04-08] MEDS: 0.9% Saline Lock 10 ML Syringe IV (05:45)
[2024-04-08] MEDS: Piperacil/Tazobactam 3.375 GM in 0.9% Normal Saline (50mL MB+) 50 ML IV (05:46)
[2024-04-08 06:14] LABS: Bedside Glucose 286 mg/dL (74-106)
[2024-04-08] MEDS: Insulin Lispro 100 UNIT/ML INSULN.PEN SC ×2 (06:39→11:50)
[2024-04-08] MEDS: Ipratropium/Albuterol Sulfate 3 ML AMPUL.NEB INHALATION ×2 (07:35→10:46)
[2024-04-08 07:36] VITALS: PULSE 85; RESP 20; O2SAT 100
[2024-04-08 07:59] VITALS: BP 132/79; PULSE 80; RESP 18; TEMP 36.6; O2SAT 98
[2024-04-08] MEDS: MethylPREDNISolone 125 MG/2 ML Vial 60 MG IV (09:34)
[2024-04-08] MEDS: Insulin Glargine-YFGN 100 UNIT/ML Pen 15 UNIT SC (09:34)
[2024-04-08] MEDS: Pantoprazole Sodium 40 MG in 0.9% Normal Saline (100mL MB+) 100 ML 330 MG IV (09:35)
--- NOTE | 2024-04-08 10:13 | CASEMGMT ---
Dr Lazcano states that the pt will DC today. This RN CM to pt room to discuss DC planning. Pt states that he feels safe returning home today and denies the need for HH, OP Tx, or CCN. Pt states that he feels safe returning home with his son and DIL today. Pt is aware that his current oxygen order (4L continuous) and states that his son or DIL will bring in his portability. Will follow for potential updated o2 Rx needs. Pt denies further concerns at this time.
[2024-04-08 10:46] VITALS: PULSE 71; RESP 18
--- NOTE | 2024-04-08 11:11 | DCINST_ITS ---
Discharge Instructions Diet Discharge Diet: Low fat / Low cholesterol and Carb Control Diet DC O2, CPAP, BIPAP needs Home O2 Discharge instructions: No Dressing / Incision Discharge Activity: Return to Normal Activity Dressing / Incision Call your doctor if you observe: Fever of 101 or Higher, Shortness of breath, Dizziness, Fainting spells, Swelling in the ankles, Chest pain and Increased palpitations (irregular heartbeat) Follow Up Care Test Results: Test results from this visit will be discussed in further detail at your follow- up appointment, if applicable. Discharge Plan Admission Admit Date/Time: 04/05/24 20:20 Attending Provider: Huang Lazcano Primary Care Provider: Donna Will Consulting Providers: Isaias Granados; Cisco Cortés; Alexi Roblero; Anthony Singleton; Jordan Alonzo; Meet Mckeon; Carlito Cárdenas; Claudine Andrade; Marvin Coats; Dimas Alvarenga; Kashif Berg; Elizabeth Wilson; Aric Leon; Ashanti Dugan; Mitch Pinzon; Rajeev Dalton; Roberto Escalante; Nikolai Keller; Leyda Fischer; Yolie Zapata; Dao Avila; Madi Tavarez; Zhang Concepcion; Jordan Mendoza Instructions Additional Instructions / Restrictions: Follow-up with your PCP in 3 to 5 days to monitor your hemoglobin and make sure that it stays stable Discharge Orders/Prescriptions Prescriptions: New levofloxacin 750 mg tablet 750 mg PO DAILY Qty: 5 0RF prednisone 20 mg tablet 40 mg PO DAILY Qty: 10 0RF Continued multivitamin Tablet 1 tab PO DAILY tamsulosin 0.4 mg capsule 0.4 mg PO QHS finasteride 5 mg tablet 5 mg PO DAILY ipratropium-albuterol 0.5 mg-3 mg(2.5 mg base)/3 mL solution for nebulization 3 ml inhalation Q4H PRN PRN (Reason: SOB &/OR WHEEZING) Qty: 270 11RF budesonide 1 mg/2 mL suspension for nebulization 1 mg inhalation Q12H Qty: 120 11RF (DME) pen needle, diabetic 32 gauge x /32 needle See Rx Instructions .ROUTE .MEDSUPPLY Qty: 100 5RF Rx Instructions: As directed Jardiance 10 mg tablet 10 mg PO QDAY insulin lispro [Humalog KwikPen Insulin] 100 unit/mL Insulin Pen 15 unit subcut 0800,1200,1700 Qty: 0 0RF ferrous sulfate [FeroSul] 325 mg (65 mg iron) Tablet 325 mg PO QODAY (DME) Easy Touch Hypodermic Needle 32 gauge x 5/16 needle See Rx Instructions .Route Qty: 100 0RF Rx Instructions: As directed insulin aspart U-100 100 unit/mL (3 mL) insulin pen See Protocol subcut ACHS 30 Days Qty: 15 0RF Protocol: 3. Sliding Scale Insulin Med Dosing Condition: 150-189 mg/dl = 1 unit Condition: 190-229 mg/dl = 2 units Condition: 230-269 mg/dl = 3 units Condition: 270-309 mg/dl = 4 units Condition: 310-349 mg/dl = 5 units Condition: 350-399 mg/dl = 6 units Condition: 400-449 mg/dl = 7 units Condition: Greater than 449 call physician Protocol Text: Suggested for: - Patients on Total Daily Insulin Dose of 37-55 units - Obese, infected, or steroid patients MEDIUM DOSING ALGORITHIM menthol-zinc oxide [Calmoseptine] 0.44-20.6 % ointment 1 applic topical 4-6XD PRN (Reason: skin irritation) Qty: 113 2RF carvedilol 3.125 mg tablet 3.125 mg PO BID Qty: 60 11RF Rx Instructions: must administer with a meal/food atorvastatin 40 mg tablet 20 mg PO QHS Qty: 90 3RF escitalopram oxalate 10 mg tablet 10 mg PO DAILY 90 Days Qty: 90 3RF mirtazapine [Remeron] 15 mg tablet 7.5 mg PO QHS Qty: 90 3RF pantoprazole 40 mg tablet,delayed release (DR/EC) 40 mg PO BID 90 Days Qty: 180 1RF (DME) FreeStyle Basilio 3 Sensor Device See Rx Instructions .Route Qty: 1 5RF Rx Instructions: As directed (DME) FreeStyle Basilio 3 [place] Misc See Rx Instructions .Route Qty: 1 0RF Rx Instructions: As directed furosemide [Lasix] 40 mg tablet 20 mg PO DAILY Qty: 60 1RF insulin glargine-yfgn 100 unit/mL (3 mL) insulin pen 15 unit subcut DAILY Qty: 15 1RF Referrals / Follow Up: Donna Will MD [Primary Care Provider] - Within 1 Week Disposition Disposition (needs filled in before D/C Order can be placed): Home, Self Care
[2024-04-08 11:36] VITALS: O2SAT 100; O2SAT 86; O2SAT 92
[2024-04-08 11:46] LABS: Bedside Glucose 314 mg/dL (74-106)
[2024-04-08] MEDS: Ferrous Sulfate 325 MG Tablet PO (11:50)
--- NOTE | 2024-04-08 12:01 | CASEMGMT ---
Addendum entered by Jett Riddle 04/08/24 12:36: Updated O2 Rx signed by Dr Lazcano. Rx and O2 testing results sent to [facility] [place] via [facility] at this time. Addendum entered by Jett Riddle 04/08/24 12:25: Pt RN reports that the pts ride is here. Pt RN is aware that the pt can DC and that this RN CM can send the updated Rx to [facility] once the hospitalist signs it. Original Note: Pt has an order for DC placed. Per the behavioral school counselors, pt qualifies for an increased oxygen demand compared to the pts current order for 4L continuous. Pt qualifies for 4L continuous and 6L with exertion. Dr. Lazcano notified, now awaiting signature for updated O2 Rx. CM to follow.
--- NOTE | 2024-04-08 16:44 | PCM.DC.SUM ---
Providers Date of Admission: 04/05/24 Primary Care Physician: Dr. Donna Will MD Consultations 04/05/24 21:38 Consult: Sheet Metal Engineer / Pulmonary Medicine Routine Consulting Provider: Intensivists/Pulmonary Med Reason for Consult: Pneumonia, AE COPD and suspected sepsis with anemia and guaiac + stool. EMERGENT Consult: No Notified: Yes Date Notified: 04/06/24 Time Notified: 06:41 Method of Notification: Text 04/06/24 12:59 Consult: Gastroenterology Routine Consulting Provider: [facility] Reason for Consult: Anemia, Stool guiac + EMERGENT Consult: No Notified: Yes Date Notified: 04/06/24 Time Notified: 12:59 Method of Notification: Text Reason For Visit: PNEUMONIA, AE COPD, SEPSIS AND ANEMIA WITH GUAIAC Diagnosis Discharge Diagnosis (1) Acute anemia: Status: Acute Code(s): D64.9 - Anemia, unspecified Medications at Discharge Home Medications finasteride 5 mg tablet 5 mg PO DAILY prostate 08/14/22 tamsulosin 0.4 mg capsule 0.4 mg PO QHS prostate 08/14/22 multivitamin 1 tab PO DAILY vitamin 09/13/22 menthol 0.44 %-zinc oxide 20.6 % topical ointment (Calmoseptine) 1 applic topical 4-6XD PRN skin irritation #113 grams 03/07/23 carvedilol 3.125 mg tablet 3.125 mg PO BID #60 tabs 06/05/23 atorvastatin 40 mg tablet 20 mg (1/2 x 40 mg) PO QHS cholesterol #90 tabs 09/18/23 budesonide 1 mg/2 mL suspension for nebulization 1 mg (2 mL) inhalation Q12H #120 mL 09/19/23 ipratropium 0.5 mg-albuterol 3 mg (2.5 mg base)/3 mL nebulization soln 3 ml inhalation Q4H PRN PRN SOB &/OR WHEEZING #270 mL 09/19/23 escitalopram oxalate 10 mg tablet 10 mg PO DAILY mood 90 days #90 tabs 10/29/23 mirtazapine 15 mg tablet (Remeron) 7.5 mg (1/2 x 15 mg) PO QHS sleep #90 tabs 10/29/23 pantoprazole 40 mg tablet,delayed release 40 mg PO BID reflux 3 months #180 tabs 10/29/23 insulin aspart U-100 100 unit/mL (3 mL) subcutaneous pen See Protocol subcut ACHS 1 month #15 mL 11/12/23 needle (disp) 32 gauge 32 gauge x 5/16 (Easy Touch Hypodermic Needle) #100 ea 11/12/23 insulin lispro 100 unit/mL subcutaneous pen (Humalog KwikPen (U-100) Insulin) 15 unit (0.15 mL) subcut 0800,1200,1700 #0 mL 11/24/23 pen needle, diabetic 32 gauge x 5/32 #100 ea 12/03/23 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 meter,continuous (FreeStyle Basilio 3 [place]) #1 ea 12/24/23 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 sensor (FreeStyle Basilio 3 Sensor device) #1 ea 12/24/23 furosemide 40 mg tablet (Lasix) 20 mg (1/2 x 40 mg) PO DAILY diuretic #60 tabs 03/08/24 insulin glargine-yfgn 100 unit/mL (3 mL) subcutaneous pen 15 unit (0.15 mL) subcut DAILY #15 mL 03/08/24 empagliflozin 10 mg tablet (Jardiance) 10 mg PO QDAY 03/16/24 ferrous sulfate 325 mg (65 mg iron) tablet (FeroSul) 325 mg PO QODAY Supplement 04/05/24 levofloxacin 750 mg tablet 750 mg PO DAILY #5 tabs 04/08/24 prednisone 20 mg tablet 40 mg (2 x 20 mg) PO DAILY #10 tabs 04/08/24 Hospital Course Operations None Procedures None Summary of Care Provided Minutes Spent on Discharge: 34 Hospital Course: Per HPI: SAL QUINTANA, is a 73 M with a past medical history of essential hypertension; on carvedilol and furosemide, hyperlipidemia; on atorvastatin, obesity; with BMI of 31.5 this admission, DM-2; on empagliflozin, insulin glargine 15 units twice daily plus insulin lispro AC/HS, CAD; s/p stent (2013), history of chronic systolic CHF; with LVEF ~25%, history of ischemic cardiomyopathy; with impending AICD placement, history of atrial fibrillation; not on anticoagulation due to previous GI bleed (PUD), history of LLE DVT/PE (2021); s/p IVC filter placement, GERD; on pantoprazole twice daily, history of RA, history of colon polyp, history of basal cell carcinoma, history of non-Hodgkin's lymphoma (1999), history of thymectomy, remote history of pilonidal cyst; s/p excision (1967), history of allergic rhinitis, history of varicose veins of bilateral lower extremities, depression; on mirtazapine and escitalopram, CKD; stage III, chronic anemia; on ferrous sulfate, BPH; on tamsulosin and finasteride, history of failure to thrive in adult, history of COVID-19 plus history of ongoing tobacco abuse; with subsequent asthma/COPD and chronic hypoxic respiratory failure on 4L NC continuous who presents to [facility] [place] ER complaining of shortness of breath, nausea and vomiting. Mr. Quintana reports his symptoms began approximately 2 weeks prior to admission with a gradual-onset of dyspnea on exertion that progressed to shortness of breath of rest. He also admits to increasing cough with fever up to 101 ?F confirmed by EMS complicated by nausea throughout the day with 1 episode of bilious emesis. He denies associated blood in vomitus, diarrhea or dysuria but he does admit to having to increase his oxygen after being 84% on his normal 4 L so he was turned up to 6L NC prior to arrival. He denies taking any lizn-hrp-hcdfdul remedies at home and he has not seen any healthcare providers since his symptom onset. In the ER he was noted to have x-ray evidence of small Right pleural effusion, which may indicate developing infection with COPD along with 14.5K and Left-shift of 1.4% an fever of 100 ?F concerning for possible Sepsis complicated by clinical evidence of htqyc-xu-tzjyoxt respiratory insufficiency in the setting of ongoing tobacco abuse with incidentally noted guaiac positive stools and hemoglobin of 7.7 g/dL present on admission (down from 9.8 g/dL on January 27, 2024) that he was then admitted to the ICU for ongoing care for stay that is expected to extend beyond 2 midnights. Hospital Course: 1. Acute hypoxic insufficiency secondary to pneumonia in the setting of history of COPD ? Continue with Zosyn and azithromycin ? Continue with steroids and inhalers ? VBG was unremarkable 04/08/2024: Sputum sample came back with Staph aureus without any sensitivities. He was feeling much better and was asking if he could potentially go home. Will plan to discharge on Levaquin 750 mg p.o. daily for another 5 days. He expressed understanding of the risk benefits of going home and would like to go home today. He was back down to his baseline oxygen 4 L nasal cannula 2. CAD status post stent/chronic systolic CHF/essential HTN/HLD/new onset A-fib ? Stress test in the beginning of October did not show any reversible perfusion defects ? He had an echo on 09/04/2023 with an EF of 25% mildly dilated LV with severe global hypokinesis and a PASP of 30 mmHg ? Continue with his home blood pressure medications as well as his diuretic ? Not a candidate for anticoagulation secondary to a history of recurrent GI bleeds as well as iron deficiency anemia 3. DM2 ? Will hold his oral regimen ? Continue with long-acting and sliding scale insulin ? Accu-Cheks ACHS ? Will monitor make adjustments as necessary 4. 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 The AVMs are likely related to his rheumatoid arthritis ? Continue with PPI ? Has an IVC filter in place ? Hemoglobin dropped to 6.7 he was transfused 2 units yesterday currently 8.9. Status post EGD on 04/06/2024 with bleeding AVMs in the duodenum ? Will recheck H&H this afternoon and again tomorrow morning 04/08/2024: Hemoglobin today is 8.6 which is more in line with what I would expect after his 2 units from 6.7. Denies any further bleeding and he does have a chronic issue with AVMs which were found on this EGD. Will continue with all of his home medications including iron supplementation and PPI. 5. Anxiety/depression ? Stable ? Continue with his home medications 6. BPH ? Stable ? Continue with his home medications Physical Exam Narrative General: Alert, Oriented x3, Cooperative, No apparent distress HEENT: Atraumatic, PERRLA, EOMI, Normocephalic Oral: Moist Mucosa Neck: Supple, No JVD Lungs: Diminished, Normal air movement, No rhonchi, No wheeze, No rales Cardiovascular: Regular rate, Regular Rhythm, Normal S1, Normal S2, No murmurs Abdomen: Soft, Non Tender, Non-Distended, No Hepato-splenomegaly Extremities: No edema, Capillary Refill Less than 3 Seconds Skin: No rashes, No breakdown Musculoskeletal: No Tenderness to Palpation of Joints or Extremities Neurological: No focal neurological deficits, Motor Exam 5/5 strength throughout, Sensory exam intact to light touch and pain Psych/Mental Status: Normal Affect, Appropriate Weight / BMI Weight Weight: 218 lb 11.2 oz Body Mass Index (BMI) 30.4 ABG / Lab / Microbiology Data 04/08/24 05:12 04/08/24 05:12 Laboratory: Laboratory Results - last 24 hr 04/07/24 17:00: POC Glucose 303 H 04/07/24 23:56: POC Glucose 337 H 04/08/24 05:12: WBC 9.4, RBC 3.22 L, Hgb 8.6 L, Hct 28.2 L, MCV 87.6, MCH 26.7 L, MCHC 30.5 L, RDW Std Deviation 54.2 H, RDW Coeff of Rafael 17.1 H, Plt Count 308, MPV 11.3, Immature Gran % (Auto) 1.200 H, Neut % (Auto) 88.2 H, Lymph % (Auto) 4.7 L, Granite % (Auto) 5.8, Eos % (Auto) 0.0, Baso % (Auto) 0.1, Absolute Neuts (auto) 8.3 H, Absolute Lymphs (auto) 0.44 L, Nucleated RBC % 0.5, Sodium 143, Potassium 4.6, Chloride 110 H, Carbon Dioxide 29.0, Anion Gap 4 L, BUN 45 H, Creatinine 1.47 H, Estim Creat Clear Calc 52.92, Est GFR (MDRD) Af Amer 60, Est GFR (MDRD) Non-Af 50 L, BUN/Creatinine Ratio 30.6 H, Glucose 340 H, Calcium 8.5 04/08/24 05:51: POC Glucose 286 H 04/08/24 11:23: POC Glucose 314 H Microbiology: Microbiology 04/05/24 17:55 Blood Culture (Wb) - Left Hand Blood Culture - Preliminary No growth in 48 hours. 04/05/24 17:40 Blood Culture (Wb) - Anticubital Right Blood Culture - Preliminary No growth in 48 hours. 04/06/24 06:35 Sputum, Expectorated/Coughed Gram Stain - Final 04/06/24 06:35 Sputum, Expectorated/Coughed Respiratory Culture - Preliminary Staphylococcus aureus 04/05/24 21:16 Urine, Clean Catch Urine Culture - Final Mixed Gram Positive Organisms 04/05/24 18:45 Stool Stool Occult Blood (FOREST) - Final Occult Blood Positive 04/05/24 17:45 Mucosa - Nose SARS-CoV-2, Influenza & RSV (PCR) - Final D/C Instructions Discharge Diet: Low fat / Low cholesterol and Carb Control Diet Call your doctor if you observe: Fever of 101 or Higher, Shortness of breath, Dizziness, Fainting spells, Swelling in the ankles, Chest pain and Increased palpitations (irregular heartbeat) DC O2, CPAP, BIPAP Needs RN Home O2 Qualification: Home O2 Qualification: Is the patient on home oxygen Yes 04/08/24 11:36 Home O2 Qualification: AT REST 1-Pulse Ox at rest 100 04/08/24 11:36 1- Oxygen flow rate at rest 4 04/08/24 11:36 Home O2 Qualification: WITH AMBULATION 1- Pulse Ox with ambulation 86 04/08/24 11:36 1- Oxygen Flow Rate with 4 04/08/24 11:36 ambulation 2- Pulse Ox with ambulation 92 04/08/24 11:36 2- Oxygen Flow Rate with 6 04/08/24 11:36 ambulation Home O2 Discharge instructions: No Meaningful Use Info Meaningful Use Meaningful Use Diagnoses (Choose all that apply): None applicable Ischemic Stroke Statin Dosing Therapy Reference: STATIN DOSE THERAPY REFERENCE: * Patients > 75 years receive moderate or high dose statin therapy. * Patients 75 years or YOUNGER should receive HIGH intensity statin dose unless contraindicated. You will be required to document reason for non-treatment if statin daily dose does not meet guidelines. HIGH DOSE STATIN THERAPY DAILY Atorvastatin > than or = to 40 mg Rosuvastatin > than or = to 20 mg Amlodipine + Atorvastatin > than or = to 2.5/40 mg Ezetimibe + Simvastatin 10/80 mg Simvastatin 80mg Discharge Plan Admission Admit Date/Time: 04/05/24 20:20 Attending Provider: Huang Lazcano Primary Care Provider: Donna Will Consulting Providers: Isaias Granados; Cisco Cortés; Alexi Roblero; Anthony Singleton; Jordan Alonzo; Meet Mckeon; Carlito Cárdenas; Claudine Andrade; Marvin Coats; Dimas Alvarenga; Kashif Berg; Elizabeth Wilson; Aric Leon; Ashanti Dugan; Mitch Pinzon; Rajeev Dalton; Roberto Escalante; Nikolai Keller; Leyda Fischer; Yolie Zapata; Dao Avila; Madi Tavarez; Zhang Concepcion; Jordan Mendoza Instructions Additional Instructions / Restrictions: Follow-up with your PCP in 3 to 5 days to monitor your hemoglobin and make sure that it stays stable Discharge Orders/Prescriptions Prescriptions: New levofloxacin 750 mg tablet 750 mg PO DAILY Qty: 5 0RF prednisone 20 mg tablet 40 mg PO DAILY Qty: 10 0RF Continued multivitamin Tablet 1 tab PO DAILY tamsulosin 0.4 mg capsule 0.4 mg PO QHS finasteride 5 mg tablet 5 mg PO DAILY ipratropium-albuterol 0.5 mg-3 mg(2.5 mg base)/3 mL solution for nebulization 3 ml inhalation Q4H PRN PRN (Reason: SOB &/OR WHEEZING) Qty: 270 11RF budesonide 1 mg/2 mL suspension for nebulization 1 mg inhalation Q12H Qty: 120 11RF (DME) pen needle, diabetic 32 gauge x 5/32 needle See Rx Instructions .ROUTE .MEDSUPPLY Qty: 100 5RF Rx Instructions: As directed Jardiance 10 mg tablet 10 mg PO QDAY insulin lispro [Humalog KwikPen Insulin] 100 unit/mL Insulin Pen 15 unit subcut 0800,1200,1700 Qty: 0 0RF ferrous sulfate [FeroSul] 325 mg (65 mg iron) Tablet 325 mg PO QODAY (DME) Easy Touch Hypodermic Needle 32 gauge x 5/16 needle See Rx Instructions .Route Qty: 100 0RF Rx Instructions: As directed insulin aspart U-100 100 unit/mL (3 mL) insulin pen See Protocol subcut ACHS 30 Days Qty: 15 0RF Protocol: 3. Sliding Scale Insulin Med Dosing Condition: 150-189 mg/dl = 1 unit Condition: 190-229 mg/dl = 2 units Condition: 230-269 mg/dl = 3 units Condition: 270-309 mg/dl = 4 units Condition: 310-349 mg/dl = 5 units Condition: 350-399 mg/dl = 6 units Condition: 400-449 mg/dl = 7 units Condition: Greater than 449 call physician Protocol Text: Suggested for: - Patients on Total Daily Insulin Dose of 37-55 units - Obese, infected, or steroid patients MEDIUM DOSING ALGORITHIM menthol-zinc oxide [Calmoseptine] 0.44-20.6 % ointment 1 applic topical 4-6XD PRN (Reason: skin irritation) Qty: 113 2RF carvedilol 3.125 mg tablet 3.125 mg PO BID Qty: 60 11RF Rx Instructions: must administer with a meal/food atorvastatin 40 mg tablet 20 mg PO QHS Qty: 90 3RF escitalopram oxalate 10 mg tablet 10 mg PO DAILY 90 Days Qty: 90 3RF mirtazapine [Remeron] 15 mg tablet 7.5 mg PO QHS Qty: 90 3RF pantoprazole 40 mg tablet,delayed release (DR/EC) 40 mg PO BID 90 Days Qty: 180 1RF (DME) FreeStyle Basilio 3 Sensor Device See Rx Instructions .Route Qty: 1 5RF Rx Instructions: As directed (DME) FreeStyle Basilio 3 [place] Misc See Rx Instructions .Route Qty: 1 0RF Rx Instructions: As directed furosemide [Lasix] 40 mg tablet 20 mg PO DAILY Qty: 60 1RF insulin glargine-yfgn 100 unit/mL (3 mL) insulin pen 15 unit subcut DAILY Qty: 15 1RF Referrals / Follow Up: Donna Will MD [Primary Care Provider] - Within 1 Week Disposition Disposition (needs filled in before D/C Order can be placed): Home, Self Care Charges/Coding Visit Charges Inpatient E&M: 41746 Disch Hosp >30min
== END 2024-04-08 12:34 | disposition home or self-care (01) | DRG 177 ==
LOC: ED 20:04 → ICU 21:37
PROVIDERS: Internal Medicine Critical Care Medicine; Internal Medicine Gastroenterology; Admitting Provider Internal Medicine; Emergency Provider Emergency Medicine; PCP Internal Medicine; Visit Provider Family Medicine
PROC: 0DJ08ZZ Inspection of Upper Intestinal Tract, Via Natural or Artificial Opening Endoscopic (ICD-10-PCS; CPT 43235; principal; 2024-04-06 16:10)
DX: J15.211 Pneumonia due to Methicillin susceptible Staphylococcus aureus (principal); K31.811 Angiodysplasia of stomach and duodenum with bleeding; J47.0 Bronchiectasis with acute lower respiratory infection; D62 Acute posthemorrhagic anemia; Q27.30 Arteriovenous malformation, site unspecified; I13.0 Hypertensive heart and chronic kidney disease with heart failure and stage 1 through stage 4 chronic kidney disease, or unspecified chronic kidney disease; J96.11 Chronic respiratory failure with hypoxia; J44.0 Chronic obstructive pulmonary disease with (acute) lower respiratory infection; J44.1 Chronic obstructive pulmonary disease with (acute) exacerbation; I50.22 Chronic systolic (congestive) heart failure; N30.01 Acute cystitis with hematuria; E11.22 Type 2 diabetes mellitus with diabetic chronic kidney disease; N18.30 Chronic kidney disease, stage 3 unspecified; M06.9 Rheumatoid arthritis, unspecified; F32.A Depression, unspecified; E66.9 Obesity, unspecified; I48.91 Unspecified atrial fibrillation; I25.5 Ischemic cardiomyopathy; K21.9 Gastro-esophageal reflux disease without esophagitis; I25.10 Atherosclerotic heart disease of native coronary artery without angina pectoris; F17.210 Nicotine dependence, cigarettes, uncomplicated; Z79.4 Long term (current) use of insulin; E78.00 Pure hypercholesterolemia, unspecified; F41.9 Anxiety disorder, unspecified; Z86.718 Personal history of other venous thrombosis and embolism; Z79.84 Long term (current) use of oral hypoglycemic drugs; Z68.31 Body mass index [BMI] 31.0-31.9, adult; Z79.51 Long term (current) use of inhaled steroids; Z79.899 Other long term (current) drug therapy; N40.0 Benign prostatic hyperplasia without lower urinary tract symptoms
CPT/HCPCS: 36415; 71045; 71046; 74176; 80048; 80053; 81001; 82274; 82550; 82803; 82962; 83036; 83605; 83880; 84484; 85014; 85018; 85025; 85610; 85730; 86850; 86900; 86901; 87040; 87070; 87077; 87086; 87088; 87186; 87205; 87631; 93005; 94640; 94762; 97166; 99285; 99406; P9016; A4216

== ENCOUNTER 2024-06-20 16:13 | Inpatient (IN) | payer MEDICARE, SELFPAY ==
[2024-06-20] VITALS (21 sets, daily range): BP systolic 79–125; BP diastolic 46–99; PULSE 76–112; RESP 12–33; TEMP 37.8–39.3; O2SAT 78–100; BMI 29.1
--- NOTE | 2024-06-20 16:20 | EKG12_ITS ---
Test Reason : SOB Blood Pressure : */* mmHG Vent. Rate : 105 BPM Atrial Rate : * BPM P-R Int : * ms QRS Dur : 96 ms QT Int : 344 ms P-R-T Axes : * 62 62 degrees QTcB Int : 454 ms Atrial fibrillation with rapid ventricular response Nonspecific ST and T wave abnormality Abnormal ECG Confirmed by PANCHITO TEIXEIRA, ALONDRA ([id number]), content editor APOLONIA GUERRERO ([id number]) on 06/23/2024 2:40:17 PM Referred By: Confirmed By: ALONDRA FLANAGAN MD
--- NOTE | 2024-06-20 16:24 | EX.ED.DYSGE1 ---
HPI <SORIN Odom - Last Filed: 06/20/24 18:54> History of Present Illness Chief Complaint: Shortness of Breath Narrative Narrative: Patient is a 73-year-old male with history of COPD, history of heart failure, hypertension hyperlipidemia anemia who wears 3 L of nasal cannula oxygen daily. Over the last 3 days, the family noted that appears more weak, today the patient has a worsening cough, is yelling that he cannot get warm and was slightly altered. Patient was brought in via EMS, patient pulse oxygenation was 78 to 80%, patient did go to 94% on breathing treatments. Patient did have a fever on arrival. [facility] <SORIN Odom - Last Filed: 06/20/24 18:54> [facility] Medical History MRSA (methicillin resistant staph aureus) culture positive Ischemic cardiomyopathy COVID-19 Lethargic COPD with acute exacerbation Elevated troponin I level LUIS (acute kidney injury) Hypoxemia Chronic kidney disease (CKD), stage III (moderate) Acute hypoxic on chronic hypercapnic respiratory failure FTT (failure to thrive) in adult Former smoker On home oxygen therapy Bleeding tendency Ulcer High cholesterol History of stress test HTN (hypertension) Tobacco abuse History of pulmonary embolus (PE) (04/30/21) Essential hypertension Type 2 diabetes mellitus DVT (deep venous thrombosis) (05/01/21) Rhinovirus Acute respiratory failure with hypoxia Physical debility COVID-19 in immunocompromised patient Nicotine dependence, cigarettes, uncomplicated Diabetes Arthritis Cancer COPD (chronic obstructive pulmonary disease) History of basal cell carcinoma Atherosclerosis of coronary artery of [place] heart without angina pectoris Pneumonia Non-Hodgkin lymphoma History of pilonidal cyst Allergic rhinitis 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 complications Gastritis Colon polyp Obesity Asthma Chronic bronchitis Positive colorectal cancer screening using Cologuard test RA (rheumatoid arthritis) Home Medications ?Medication ?Instructions ?Recorded ?Last Taken ?Type finasteride 5 mg tablet 5 mg PO DAILY prostate 08/14/22 03/16/23 History tamsulosin 0.4 mg capsule 0.4 mg PO QHS prostate 08/14/22 03/15/23 History multivitamin 1 tab PO DAILY vitamin 09/13/22 03/16/23 History menthol 0.44 %-zinc oxide 20.6 % 1 applic topical 4-6XD PRN skin 03/07/23 Unknown Rx topical ointment (Calmoseptine) irritation #113 grams carvedilol 3.125 mg tablet 3.125 mg PO BID BP #60 tabs 06/05/23 Unknown Rx atorvastatin 40 mg tablet 20 mg (1/2 x 40 mg) PO QHS 09/18/23 Unknown Rx cholesterol #90 tabs budesonide 1 mg/2 mL suspension 1 mg (2 mL) inhalation Q12H 09/19/23 Unknown Rx for nebulization wheezing/SOB #120 mL ipratropium 0.5 mg-albuterol 3 mg 3 ml inhalation Q4H PRN PRN SOB 09/19/23 Unknown Rx (2.5 mg base)/3 mL nebulization &/OR WHEEZING #270 mL soln escitalopram oxalate 10 mg tablet 10 mg PO DAILY mood 90 days #90 10/29/23 Unknown Rx tabs mirtazapine 15 mg tablet (Remeron) 7.5 mg (1/2 x 15 mg) PO QHS sleep 10/29/23 Unknown Rx #90 tabs insulin aspart U-100 100 unit/mL See Protocol subcut ACHS high 11/12/23 Unknown Rx (3 mL) subcutaneous pen blood glucose 1 month #15 mL needle (disp) 32 gauge 32 gauge x #100 ea 11/12/23 Unknown Rx 5/16 (Easy Touch Hypodermic Needle) pen needle, diabetic 32 gauge x #100 ea 12/03/23 Unknown Rx 5/32 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 meter,continuous #1 ea 12/24/23 Unknown Rx (FreeStyle Basilio 3 [place]) 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 sensor (FreeStyle #1 ea 12/24/23 Unknown Rx Basilio 3 Sensor device) furosemide 40 mg tablet (Lasix) 20 mg (1/2 x 40 mg) PO DAILY 03/08/24 Unknown Rx diuretic #60 tabs insulin glargine-yfgn 100 unit/mL 15 unit (0.15 mL) subcut DAILY 03/08/24 Unknown Rx (3 mL) subcutaneous pen high blood glucose #15 mL empagliflozin 10 mg tablet 10 mg PO QDAY diabetes 03/16/24 Unknown History (Jardiance) ferrous sulfate 325 mg (65 mg 325 mg PO QODAY Supplement 04/05/24 04/06/24 History iron) tablet (FeroSul) vancomycin 500 mg/100 mL in 500 mg IV Q12H 26 days #5,200 mL 06/24/24 Unknown Rx dextrose 5 % intravenous piggyback Allergy/AdvReac Type Severity Reaction Status Date / Time No Known Allergies Allergy Verified 05/20/24 12:44 Family History Father Arthritis Bleeding disorder Hypertension Kidney disease Cancer Skin Anemia blood clots Emphysema lung Mother Colon cancer Cancer Lung Cancer Diabetes Brother Thyroid disorder Surgical History History of embolic filter insertion History of heart artery stent Status post cardiac surgery H/O cardiac catheterization Presence of IVC filter (04/2021) History of coronary artery stent placement (10/22/13) History of thymectomy Hx of lymph node excision History of excision of pilonidal cyst Social History household members: spouse Smoking Status: Current some day smoker tobacco type: cigarettes Tobacco: How many years used: 55 second hand exposure: Yes alcohol intake: current alcohol intake frequency: holidays/special occasions only substance use type: does not use caffeine: Yes Type: coffee Number of servings: 3 what type of physical activity do you participate in: none frequency: does not exercise seatbelt use: always ROS <SORIN Odom - Last Filed: 06/20/24 18:54> ROS ED ROS Narrative Constitutional: Positive for fever, chills, weakness Eyes: Negative for vision loss, vision change, double vision ENT: Negative for any sore throat, ear pain, congestion Cardiovascular: Negative for any chest pain, tightness, palpitations Respiratory: Positive for any cough, sputum production, hemoptysis, dyspnea, dyspnea on exertion, orthopnea Gastrointestinal: Negative for any abdominal pain, nausea, vomiting, diarrhea, constipation, blood in stool, blood in vomit : Negative for any urinary frequency, dysuria, retention, blood in urine Muscle skeletal: Negative for any neck pain, back pain Neurological: Negative for any headache, syncope, dizziness Skin: Negative for any rashes, itching, abrasions, lacerations Psychiatric: Negative for any depression, anxiety, stress, suicidal ideation, homicidal ideation Hematologic: Negative for any excessive bruising, easy bleeding EXAM <Jaydon Driscoll NP-C - Last Filed: 06/20/24 18:54> Physical Exam Narrative Exam Narrative: Vital signs reviewed. Patient arrives via EMS. Patient keeps yelling that he is cold. Patient does have a temperature of greater than 101, tachycardic. Patient does look to be feeling unwell however he is not significantly shortness of breath. Patient does have a harsh cough. HEET: Head normocephalic atraumatic, TMs clear bilaterally. Posterior pharynx is clear, dry mucous membranes. Nares clear bilaterally. Neck: Supple with no lymphadenopathy or tenderness. No signs of meningismus. Cardiac: Tachycardic rate no murmurs gallops or rubs, equal peripheral pulses bilaterally. Respiratory: Patient has rhonchorous breath sounds throughout the pulm exam. Diminished lung sounds to the lower lobes bilaterally.. No chest tenderness. Abdomen: Soft, nontender, nondistended. No abdominal bruit or pulsatile masses. No hepatosplenomegaly Extremities: No peripheral edema, no signs of gross trauma or deformity. Active full range of motion of all extremities. Neuro: Cranial nerves II through XII intact, no focal neurological deficits. Skin: Clean dry and intact with no rash, purpura, petechiae, vesicles or pustules. Backs/flank: No CVA tenderness, no midline spinal tenderness, no deformity. Psych: Normal mood and affect. No SI, HI or acute psychosis. Const Vital Signs: 06/20/24 16:14 06/20/24 16:19 06/20/24 16:29 Temperature 101.1 F H 101.6 F H Temperature Source Oral Oral Pulse Rate 112 H 104 H 110 H Respiratory Rate 24 H 23 H 20 H Blood Pressure 106/57 L 106/57 L Blood Pressure Mean 73 73 Pulse Ox 78 95 Oxygen Delivery Method Nasal Cannula High Flow Oxygen Flow Rate (L/min) 6 10 06/20/24 16:34 06/20/24 16:34 06/20/24 17:03 Temperature 101.6 F H Temperature Source Oral Pulse Rate 104 H Respiratory Rate 23 H Blood Pressure 106/57 L Blood Pressure Mean 73 Pulse Ox 95 94 96 Oxygen Delivery Method High Flow High Flow High Flow Oxygen Flow Rate (L/min) 10 10 12 06/20/24 17:13 06/20/24 17:19 06/20/24 18:00 Temperature 101.1 F H 100.1 F H Temperature Source Oral Oral Pulse Rate 108 H 108 H 105 H Respiratory Rate 26 H 26 H 24 H Blood Pressure 125/99 H 125/99 H 113/59 L Blood Pressure Mean 107 107 77 Pulse Ox 97 97 96 Oxygen Delivery Method High Flow High Flow High Flow Oxygen Flow Rate (L/min) 10 10 10 Positive unkempt General Appearance ED: unkempt Psych Appearance: unkempt <Dr. Eva Marie DO - Last Filed: 06/24/24 14:26> Physical Exam Const Vital Signs: 06/20/24 16:14 06/20/24 16:19 06/20/24 16:29 Temperature 101.1 F H 101.6 F H Temperature Source Oral Oral Pulse Rate 112 H 104 H 110 H Respiratory Rate 24 H 23 H 20 H Blood Pressure 106/57 L 106/57 L Blood Pressure Mean 73 73 Pulse Ox 78 95 Oxygen Delivery Method Nasal Cannula High Flow Oxygen Flow Rate (L/min) 6 10 06/20/24 16:34 06/20/24 16:34 06/20/24 17:03 Temperature 101.6 F H Temperature Source Oral Pulse Rate 104 H Respiratory Rate 23 H Blood Pressure 106/57 L Blood Pressure Mean 73 Pulse Ox 95 94 96 Oxygen Delivery Method High Flow High Flow High Flow Oxygen Flow Rate (L/min) 10 10 12 06/20/24 17:13 06/20/24 17:19 06/20/24 18:00 Temperature 101.1 F H 100.1 F H Temperature Source Oral Oral Pulse Rate 108 H 108 H 105 H Respiratory Rate 26 H 26 H 24 H Blood Pressure 125/99 H 125/99 H 113/59 L Blood Pressure Mean 107 107 77 Pulse Ox 97 97 96 Oxygen Delivery Method High Flow High Flow High Flow Oxygen Flow Rate (L/min) 10 10 10 MDM <SORIN Odom - Last Filed: 06/20/24 18:54> MDM Lab Data Labs: Laboratory Results - last 24 hr 06/20/24 06/20/24 06/20/24 16:30 16:32 16:40 WBC 15.6 H RBC 3.54 L Hgb 10.2 L Hct 33.0 L MCV 93.2 MCH 28.8 MCHC 30.9 L RDW Std Deviation 71.4 H RDW Coeff of Rafael 20.7 H Plt Count 232 MPV 11.0 Immature Gran % (Auto) 0.900 Neut % (Auto) 79.5 H Lymph % (Auto) 11.6 L Kenton % (Auto) 6.1 Eos % (Auto) 1.6 Baso % (Auto) 0.3 Absolute Neuts (auto) 12.4 H Absolute Lymphs (auto) 1.82 Nucleated RBC % 0.1 Platelet Estimate A Polychromasia 1+ Basophilic Stippling RARE Anisocytosis 1+ Ovalocytes 1+ PT 13.4 INR 1.0 APTT 21.3 L Sodium 144 Potassium 4.7 Chloride 101 Carbon Dioxide 29.8 Anion Gap 12 BUN 28 H Creatinine 1.34 H Estim Creat Clear Calc 55.79 Est GFR (MDRD) Non-Af 56 L BUN/Creatinine Ratio 21.1 H Glucose 184 H Lactic Acid 2.1 H* Calcium 9.5 Total Bilirubin 0.74 AST 16 ALT 14 Alkaline Phosphatase 68 NT pro BNP II 4069 H Total Protein 7.3 Albumin 4.0 Globulin 3.4 Albumin/Globulin Ratio 1.2 Procalcitonin 0.10 Blood Type AB POSITIVE Antibody Screen NEGATIVE ABG Data ABG results: ABG 06/20/24 16:32 Specimen Type ART Sample Site L Radial pH 7.46 H Bicarbonate Actual 33.4 H Total CO2 35 Base Excess 10 H O2 Saturation 87 L O2 % 4.0 ABG pCO2 47.0 H ABG pO2 51 L Thompson Test Positive O2 Delivery Device Cannula Vent Mode Not entered Radiography Diagnostic Testing: Clinical Impression(s) from Imaging Studies Chest X-Ray 06/20/24 16:35 IMPRESSION: Poor inspiration with some bibasilar atelectasis. Reading Location: [facility] EKG Atrial fibrillation with RVR: Attestation: I personally reviewed and interpreted this EKG as follows: Comments: Atrial fibrillation with a rate of 105 bpm Treatment and Re-Evaluation :: Differential diagnosis includes however is not limited to: Community-acquired pneumonia, acute anemia, upper GI bleed, lower GI bleed, pleural effusions, COPD exacerbation, CHF exacerbation, fluid overload Patient on initial arrival was hypoxic and 85, patient on 6 L nasal cannula oxygen, normally on 4 L nasal cannula oxygen. Here for weakness, fever and chills. I did look at the patient's past medical records, patient was seen for something similar in March 2024. Patient at that time had anemia with a hemoglobin of 7.7 with a positive stool occult. Today, the patient also has adventitious lung sounds, fever and chills, slightly pale appearing. Patient will receive a full septic workup, as well as type and screen. Respiratory was consulted, given an ABG which did show a pH of 7.46, CO2 of 47, O2 50.8. Patient seems to be compensating. All radiologic examinations were read, reviewed by the emergency department attending. From these reads, a plan of care will be put in place. patient's laboratory values show a stable hemoglobin of 10.2, elevated white blood cell count of 15.6, patient's chest x-ray shows points Prayson with some bibasilar atelectasis. Secondary to the patient's elevated white blood cell count, cough, green to yellow sputum production, patient will be treated with IV Rocephin, Zithromax. After speaking with Dr. Pritchard, the patient has had positive sputum cultures, this we treated with Zosyn and vancomycin. Patient will receive a midline here in the emergency department. <Dr. Eva Marie, DO - Last Filed: 06/24/24 14:26> [facility] Lab Data Labs: Laboratory Results - last 24 hr 06/20/24 06/20/24 06/20/24 16:30 16:32 16:40 WBC 15.6 H RBC 3.54 L Hgb 10.2 L Hct 33.0 L MCV 93.2 MCH 28.8 MCHC 30.9 L RDW Std Deviation 71.4 H RDW Coeff of Rafael 20.7 H Plt Count 232 MPV 11.0 Immature Gran % (Auto) 0.900 Neut % (Auto) 79.5 H Lymph % (Auto) 11.6 L Kent[place] % (Auto) 6.1 Eos % (Auto) 1.6 Baso % (Auto) 0.3 Absolute Neuts (auto) 12.4 H Absolute Lymphs (auto) 1.82 Nucleated RBC % 0.1 Platelet Estimate A Polychromasia 1+ Basophilic Stippling RARE Anisocytosis 1+ Ovalocytes 1+ PT 13.4 INR 1.0 APTT 21.3 L Sodium 144 Potassium 4.7 Chloride 101 Carbon Dioxide 29.8 Anion Gap 12 BUN 28 H Creatinine 1.34 H Estim Creat Clear Calc 55.79 Est GFR (MDRD) Non-Af 56 L BUN/Creatinine Ratio 21.1 H Glucose 184 H Lactic Acid 2.1 H* Calcium 9.5 Total Bilirubin 0.74 AST 16 ALT 14 Alkaline Phosphatase 68 NT pro BNP II 4069 H Total Protein 7.3 Albumin 4.0 Globulin 3.4 Albumin/Globulin Ratio 1.2 Procalcitonin 0.10 Blood Type AB POSITIVE Antibody Screen NEGATIVE ABG Data ABG results: ABG 06/20/24 16:32 Specimen Type ART Sample Site L Radial pH 7.46 H Bicarbonate Actual 33.4 H Total CO2 35 Base Excess 10 H O2 Saturation 87 L O2 % 4.0 ABG pCO2 47.0 H ABG pO2 51 L Thompson Test Positive O2 Delivery Device Cannula Vent Mode Not entered Radiography Diagnostic Testing: Clinical Impression(s) from Imaging Studies Chest X-Ray 06/20/24 16:35 IMPRESSION: Poor inspiration with some bibasilar atelectasis. Reading Location: [id number] Treatment and Re-Evaluation :: Differential diagnosis includes however is not limited to: Community-acquired pneumonia, acute anemia, upper GI bleed, lower GI bleed, pleural effusions, COPD exacerbation, CHF exacerbation, fluid overload Patient on initial arrival was hypoxic and 85, patient on 6 L nasal cannula oxygen, normally on 4 L nasal cannula oxygen. Here for weakness, fever and chills. I did look at the patient's past medical records, patient was seen for something similar in March 2024. Patient at that time had anemia with a hemoglobin of 7.7 with a positive stool occult. Today, the patient also has adventitious lung sounds, fever and chills, slightly pale appearing. Patient will receive a full septic workup, as well as type and screen. Respiratory was consulted, given an ABG which did show a pH of 7.46, CO2 of 47, O2 50.8. Patient seems to be compensating. All radiologic examinations were read, reviewed by the emergency department attending. From these reads, a plan of care will be put in place. patient's laboratory values show a stable hemoglobin of 10.2, elevated white blood cell count of 15.6, patient's chest x-ray shows points Prayson with some bibasilar atelectasis. Secondary to the patient's elevated white blood cell count, cough, green to yellow sputum production, patient will be treated with IV Rocephin, Zithromax. After speaking with Dr. Pritchard, the patient has had positive sputum cultures, this we treated with Zosyn and vancomycin. Patient will receive a midline here in the emergency department. I have personally performed a face to face assessment of the patient and have reviewed the MANDA Note. I performed a substantive portion of the visit including all aspects of the following. My moralez findings include: History is patient is 73-year-old male with history of COPD, heart failure, hypertension hyperlipidemia chronic hypoxia on 3 L of oxygen at baseline presenting with increased weakness, worsening cough, chills and hypoxia per EMS. He did receive a breathing treatment en route with improvement of his oxygenation. Upon arrival to the ER patient is ill-appearing. He is febrile and hypoxic requiring high flow oxygen. He has a very harsh cough productive of thick sputum. No JVD present. Dry mucosal membranes. He is tachycardic with irregularly irregular rhythm. Coarse lung sounds present. I do not appreciate wheezing on my exam. Abdomen soft and nontender. Generally weak but no focal deficits appreciated. Does appear confused/mildly somnolent. Sepsis workup is initiated. ABG is added on to ensure he is not hypercapnic/require CPAP or intubation. He is currently protecting his airway. Is given rectal Tylenol for his fever. Patient is found to have a significant leukocytosis of 15.6. He has a chronic anemia that is stable with a hemoglobin 10.2. This is actually above his baseline I suspect he has a component of dehydration/hemoconcentration. ABG shows a borderline alkalosis with chronic respiratory acidosis that is compensated and hypoxia. He has mild CKD which is at his baseline. Chest x-ray reviewed by myself as well as radiology does not show any acute process however I suspect he still has pneumonia based on his clinical presentation and likely with associated dehydration is not showing up right now. Initially had ordered antibiotics for community-acquired pneumonia but after discussion with hospitalist decided to broad-spectrum because his cultures in the past have grown out both Pseudomonas and MRSA. Patient admitted to the ICU for further treatment. Patient given 2 L of IV fluids in the emergency room based on ideal body weight as he does have a history of heart failure with reduced ejection fraction. Suspect patient's mental status change associated with this acute infection and secondary toxic encephalopathy. Patient otherwise remains in stable condition but risk for clinical deterioration at any time. Other additions or changes: [None] <Dr. Eva Marie, DO - Last Filed: 06/24/24 14:26> Critical Care Time Critical Care Time: Yes Critical care time (excluding procedures): 30-74 minutes (36), Arranging Admission or Transfer, Performing Direct Patient Care at Bedside and - (Severe sepsis respiratory distress requiring frequent reevaluation and arranging admission to ICU) Discharge Plan Dx/Rx/DC Orders Clinical Impression: Hypoxia, Sepsis, A-fib, Community acquired pneumonia, Acute alteration in mental status Disposition Disposition: Acute Care Hospital [facility] Discharge Date/Time: 06/20/24 19:02
[2024-06-20] MEDS: Ipratropium/Albuterol Sulfate 3 ML AMPUL.NEB INHALATION ×3 (16:29→23:00)
[2024-06-20] MEDS: Albuterol 2.5 MG/3 ML VIAL.NEB. 5 MG INHALATION (16:29)
[2024-06-20] MEDS: 0.9% Normal Saline (1000mL) 1,000 ML 999 ML IV ×2 (16:33)
--- NOTE | 2024-06-20 16:35 | RAD_ITS ---
PROCEDURE: CHEST 1 VIEW (PORTABLE) 06/20/2024 REASON FOR EXAM: COUGH TECHNIQUE: Frontal view of the chest. COMPARISON: 04/06/2024 FINDINGS: Hardware: Sternotomy wires are present. Heart: Heart size is moderately enlarged. Lungs: Poor inspiration with some bibasilar atelectasis. Bones: The bones are unremarkable. Other: RAD/Chest 1 View (Portable) IMPRESSION: Poor inspiration with some bibasilar atelectasis. Reading Location: [id number]
[2024-06-20 16:36] LABS: Allen Test Positive; Base Excess 10 mmol/L (-2 to +2); Bicarbonate 33.4 mmol/L (22-26); Blood Gas Specimen Type ART; Mode Not entered; O2 Delivery Device Cannula; PO2 51 mmHG (75-100); SITE L Radial; SO2 87 % (95-99); Total Carbon Dioxide 35 mmol/L; pH 7.46 (7.35-7.45)
[2024-06-20] MEDS: Acetaminophen 500 MG Tablet 1000 MG PO (16:51)
[2024-06-20 16:59] LABS: Absolute Lymphocyte Count 1.82 X10^3/uL (0.83-4.51); Absolute Neutrophil Count 12.4 X10^3/uL (2.0-7.7); Basophil# 0.04 X10^3/uL; Basophil% 0.3 % (0-1); Eosinophil# 0.25 X10^3/uL; Eosinophils% 1.6 % (0-5); Hemoglobin 10.2 g/dL (13.0-16.5); Lymphocyte # 1.82 X10^3/ul (0.83-4.51); Lymphocyte % 11.6 % (19-41); Mean Corp Hgb Conc 30.9 g/dL (32-36); Mean Corpuscular Hgb 28.8 pg (27.0-32.0); Mean Corpuscular Volume 93.2 fL (80-94); Monocyte# 0.96 X10^3/uL; Monocyte% 6.1 % (0-10); NRBC Flagged by Analyzer 0.1 % (0-5); Neutrophil # 12.42 X10^3/uL (2.7-7.7); Neutrophil % 79.5 % (47-70); POSITIVE MORPHOLOGY YES; Platelet Count 232 K/mm3 (150-450); RBC Distribution Width CV 20.7 % (11.6-14.6); RBC Distribution Width SD 71.4 fl (35.1-43.9); Red Blood Count 3.54 M/mm3 (4.6-6.2); White Blood Count 15.6 K/mm3 (4.4-11.0)
[2024-06-20 17:01] LABS: Differential Indicated SCAN CRITERIA MET
[2024-06-20 17:02] LABS: Partial Thromboplast Time 21.3 Seconds (24.1-36.2); Prothrombin Time (Protime)PT. 13.4 SECONDS (11.7-14.9)
[2024-06-20 17:16] LABS: Pro- Brain NATRIURETIC PEPTIDE 4069 pg/mL (<=900)
[2024-06-20 17:24] LABS: ALB/GLOB Ratio 1.2 RATIO (0.9-2.4); AST(SGOT) 16 U/L (<=37); Alanine Aminotransfer ALT/SGPT 14 U/L (<=46); Alkaline Phosphatase 68 U/L (40-129); Anion Gap 12 (5-15); BUN 28 mg/dL (4-19); BUN/Creat Ratio 21.1 RATIO (10-20); Calcium,Total 9.5 mg/dL (7.6-11.0); Carbon Dioxide 29.8 mmol/L (21.0-32.0); Chloride 101 mmol/L (98-108); Creatinine, Serum 1.34 mg/dL (0.70-1.20); EST Glomerular Filtration Rate 56 (>60); Estimated Creatinine Clearance 55.79 ml/min (50-250); Globulin 3.4 g/dL (2.2-4.2); Glucose 184 mg/dL (70-99); Potassium 4.7 mmol/L (3.3-5.1); Protein, Total 7.3 g/dL (5.9-8.4); Sodium Level 144 mmol/L (133-145); Total Bilirubin 0.74 mg/dL (0.00-1.30)
[2024-06-20 17:33] LABS: Lactic Acid 2.1 mmol/L (0.0-2.0)
[2024-06-20] MEDS: Ceftriaxone 1 GM/50 ML BAG IV (17:51)
--- NOTE | 2024-06-20 18:06 | PCM.HP.STD ---
HPI - General General Date of Admission: 06/20/24 Date of Service: 06/20/24 Chief Complaint: Altered mental status HPI Narrative SAL ALONZO, is a 73-year-old male with history of ischemic cardiomyopathy, coronary artery disease with stent, COPD on 3 L of nasal cannula chronically, CKD, diabetes, DVT and PE, BPH, GERD who presented to [facility] ED 06/20/2024 with 3 days of worsening generalized weakness and 1 day of cough and confusion. On arrival to the ED patient febrile with a temperature of 101.1, tachycardic with a heart rate of 112, blood pressure 106/57 with respiratory rate of 24, pulse ox 78% on 6 L of nasal cannula which improved to 94% on 10 L of high flow and breathing treatments. Chest x-ray revealed poor inspiration with some bibasilar atelectasis. CMP revealed a creatinine of 1.34 which is at patient's baseline. White blood cell count of 15.6 with a hemoglobin of 10.2. Pro BNP 4069. Procalcitonin only 0.10 however high suspicion for sepsis given elevated white blood cell count with worsening of patient's acute respiratory failure, tachycardia, tachypnea, temperature of 101.6 and lactic acid of 2.1. Even though patient had negative chest x-ray was still suspected that this is likely pneumonia that is yet show 1 x-ray given his significant productive cough with increased shortness of breath. Patient given fluids and broad-spectrum antibiotics and hospitalist contacted for admission. Patient evaluated with family at bedside, reportedly patient was overall in his usual health yesterday was able to eat dinner with family without significant abnormality, slept in his recliner last night and when they went to wake him up today he was confused and said he was cold, they are able to get him up and ambulate him to the table and he reported shortness of breath and was coughing more so they brought him to the hospital. Prior to that it was initially endorsed that patient has chronic cough but it does seem that several days ago it was noted he was coughing more than usual. Patient is very tired and just repeats that he is cold, unable to get full ROS so history per report and from family as above. Reportedly he had no other complaints leading up to this. Patient does have a little bit of swelling in right lower extremity compared to left which reportedly is not new. Family unsure if patient still has IVC filter that was placed in 2021. Additionally family denies that patient has complained of any blood in his stool recently. Also of note family reports he had mechanical fall over his oxygen tubing last week and the only thing that he hit was his sternum as he fell onto a yeti cup he was holding and initially had some soreness but was not complaining of any trouble breathing or any other acute complaints and was otherwise in his usual health afterwards [facility] Medical History MRSA (methicillin resistant staph aureus) culture positive Ischemic cardiomyopathy COVID-19 Lethargic COPD with acute exacerbation Elevated troponin I level LUIS (acute kidney injury) Hypoxemia Chronic kidney disease (CKD), stage III (moderate) Acute hypoxic on chronic hypercapnic respiratory failure FTT (failure to thrive) in adult Former smoker On home oxygen therapy Bleeding tendency Ulcer High cholesterol History of stress test HTN (hypertension) Tobacco abuse History of pulmonary embolus (PE) (04/30/21) Essential hypertension Type 2 diabetes mellitus DVT (deep venous thrombosis) (05/01/21) Rhinovirus Acute respiratory failure with hypoxia Physical debility COVID-19 in immunocompromised patient Nicotine dependence, cigarettes, uncomplicated Diabetes Arthritis Cancer COPD (chronic obstructive pulmonary disease) History of basal cell carcinoma Atherosclerosis of coronary artery of [place] heart without angina pectoris Pneumonia Non-Hodgkin lymphoma History of pilonidal cyst Allergic rhinitis 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 complications Gastritis Colon polyp Obesity Asthma Chronic bronchitis Positive colorectal cancer screening using Cologuard test RA (rheumatoid arthritis) Home Medications ?Medication ?Instructions ?Recorded ?Last Taken ?Type finasteride 5 mg tablet 5 mg PO DAILY prostate 08/14/22 03/16/23 History tamsulosin 0.4 mg capsule 0.4 mg PO QHS prostate 08/14/22 03/15/23 History multivitamin 1 tab PO DAILY vitamin 09/13/22 03/16/23 History menthol 0.44 %-zinc oxide 20.6 % 1 applic topical 4-6XD PRN skin 03/07/23 Unknown Rx topical ointment (Calmoseptine) irritation #113 grams carvedilol 3.125 mg tablet 3.125 mg PO BID #60 tabs 06/05/23 Unknown Rx atorvastatin 40 mg tablet 20 mg (1/2 x 40 mg) PO QHS 09/18/23 Unknown Rx cholesterol #90 tabs budesonide 1 mg/2 mL suspension 1 mg (2 mL) inhalation Q12H #120 mL 09/19/23 Unknown Rx for nebulization ipratropium 0.5 mg-albuterol 3 mg 3 ml inhalation Q4H PRN PRN SOB 09/19/23 Unknown Rx (2.5 mg base)/3 mL nebulization &/OR WHEEZING #270 mL soln escitalopram oxalate 10 mg tablet 10 mg PO DAILY mood 90 days #90 10/29/23 Unknown Rx tabs mirtazapine 15 mg tablet (Remeron) 7.5 mg (1/2 x 15 mg) PO QHS sleep 10/29/23 Unknown Rx #90 tabs insulin aspart U-100 100 unit/mL See Protocol subcut ACHS 1 month 11/12/23 Unknown Rx (3 mL) subcutaneous pen #15 mL needle (disp) 32 gauge 32 gauge x #100 ea 11/12/23 Unknown Rx 5/16 (Easy Touch Hypodermic Needle) insulin lispro 100 unit/mL 15 unit (0.15 mL) subcut 11/24/23 Unknown Rx subcutaneous pen (Humalog KwikPen 0800,1200,1700 #0 mL (U-100) Insulin) pen needle, diabetic 32 gauge x #100 ea 12/03/23 Unknown Rx 5/32 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 meter,continuous #1 ea 12/24/23 Unknown Rx (FreeStyle Basilio 3 Depauw) 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 sensor (FreeStyle #1 ea 12/24/23 Unknown Rx Basilio 3 Sensor device) furosemide 40 mg tablet (Lasix) 20 mg (1/2 x 40 mg) PO DAILY 03/08/24 Unknown Rx diuretic #60 tabs insulin glargine-yfgn 100 unit/mL 15 unit (0.15 mL) subcut DAILY #15 03/08/24 Unknown Rx (3 mL) subcutaneous pen mL empagliflozin 10 mg tablet 10 mg PO QDAY 03/16/24 Unknown History (Jardiance) ferrous sulfate 325 mg (65 mg 325 mg PO QODAY Supplement 04/05/24 04/06/24 History iron) tablet (FeroSul) medlist intranasal TID 05/18/24 Unknown History pantoprazole 40 mg tablet,delayed 40 mg PO BID reflux 3 months #180 06/04/24 Unknown Rx release tabs Allergy/AdvReac Type Severity Reaction Status Date / Time No Known Allergies Allergy Verified 05/20/24 12:44 Family History Father Arthritis Bleeding disorder Hypertension Kidney disease Cancer Skin Anemia blood clots Emphysema lung Mother Colon cancer Cancer Lung Cancer Diabetes Brother Thyroid disorder Surgical History History of embolic filter insertion History of heart artery stent Status post cardiac surgery H/O cardiac catheterization Presence of IVC filter (04/2021) History of coronary artery stent placement (10/22/13) History of thymectomy Hx of lymph node excision History of excision of pilonidal cyst Social History (Updated 05/18/24 @ 14:24 by Katy Shirley) household members: spouse Smoking Status: Current some day smoker tobacco type: cigarettes Tobacco: How many years used: 55 second hand exposure: Yes alcohol intake: current alcohol intake frequency: holidays/special occasions only substance use type: does not use caffeine: Yes Type: coffee Number of servings: 3 what type of physical activity do you participate in: none frequency: does not exercise seatbelt use: always ROS ROS Narrative Unable to reliably obtain ROS given patient's repeating over and over that he was cold Vital Signs Vital Signs Vital Signs: 06/20/24 16:14 06/20/24 16:19 06/20/24 16:29 Temperature 101.1 F H 101.6 F H Temperature Source Oral Oral Pulse Rate 112 H 104 H 110 H Respiratory Rate 24 H 23 H 20 H Blood Pressure 106/57 L 106/57 L Blood Pressure Mean 73 73 Pulse Ox 78 95 Oxygen Delivery Method Nasal Cannula High Flow Oxygen Flow Rate (L/min) 6 10 06/20/24 16:34 06/20/24 16:34 06/20/24 17:03 Temperature 101.6 F H Temperature Source Oral Pulse Rate 104 H Respiratory Rate 23 H Blood Pressure 106/57 L Blood Pressure Mean 73 Pulse Ox 95 94 96 Oxygen Delivery Method High Flow High Flow High Flow Oxygen Flow Rate (L/min) 10 10 12 06/20/24 17:13 Temperature Temperature Source Pulse Rate 108 H Respiratory Rate 26 H Blood Pressure 125/99 H Blood Pressure Mean 107 Pulse Ox 97 Oxygen Delivery Method High Flow Oxygen Flow Rate (L/min) 10 Weight Weight: 94.4 kg Body Mass Index (BMI) 29.1 Physical Exam Narrative General: Patient resting in bed with eyes closed, fidgeting at times, will only repeat that he is cold and only answers minimal questions HEENT: Atraumatic, normocephalic Eyes: Anicteric, normal conjunctiva, extraocular movements grossly intact Neck: Supple Respiratory: Tachypneic, increased respiratory effort, coarse bilaterally Cardiovascular: Low-grade sinus tachycardia GI: Soft, nontender, nondistended Extremities: Trace lower extremity edema with right leg slightly more than left Musculoskeletal: Moving all extremities Neuro: No overt focal neurological deficits though patient not cooperative with neuroexam Skin: No rashes appreciated Psych: Patient continues to repeat that he is cold and is reluctant to engage in interview or exam Results Lab / Micro Data 06/20/24 16:32 06/20/24 16:32 Labs: Laboratory Results - last 24 hr 06/20/24 16:30: Lactic Acid 2.1 H*, NT pro BNP II 4069 H 06/20/24 16:32: WBC 15.6 H, RBC 3.54 L, Hgb 10.2 L, Hct 33.0 L, MCV 93.2, MCH 28.8, MCHC 30.9 L, RDW Std Deviation 71.4 H, RDW Coeff of Rafael 20.7 H, Plt Count 232, MPV 11.0, Immature Gran % (Auto) 0.900, Neut % (Auto) 79.5 H, Lymph % (Auto) 11.6 L, [place] % (Auto) 6.1, Eos % (Auto) 1.6, Baso % (Auto) 0.3, Absolute Neuts (auto) 12.4 H, Absolute Lymphs (auto) 1.82, Nucleated RBC % 0.1, PT 13.4, INR 1.0, APTT 21.3 L, Sodium 144, Potassium 4.7, Chloride 101, Carbon Dioxide 29.8, Anion Gap 12, BUN 28 H, Creatinine 1.34 H, Estim Creat Clear Calc 55.79, Est GFR (MDRD) Non-Af 56 L, BUN/Creatinine Ratio 21.1 H, Glucose 184 H, Calcium 9.5, Total Bilirubin 0.74, AST 16, ALT 14, Alkaline Phosphatase 68, Total Protein 7.3, Albumin 4.0, Globulin 3.4, Albumin/Globulin Ratio 1.2, Procalcitonin 0.10 06/20/24 16:40: Blood Type AB POSITIVE, Antibody Screen NEGATIVE ABG Data ABG results: ABG 06/20/24 16:32 Specimen Type ART Sample Site L Radial pH 7.46 H Bicarbonate Actual 33.4 H Total CO2 35 Base Excess 10 H O2 Saturation 87 L O2 % 4.0 ABG pCO2 47.0 H ABG pO2 51 L Thompson Test Positive O2 Delivery Device Cannula Vent Mode Not entered Imaging Radiology Impression Chest X-Ray 06/20/24 16:35 IMPRESSION: Poor inspiration with some bibasilar atelectasis. Reading Location: [id number] Assessment & Plan Assessment/Plan (1) Acute and chronic respiratory failure with hypoxia: PLAN: Plan # Sepsis suspected secondary to pneumonia -Suspected sepsis given white blood cell count of 15.6, temperature of 101.6 with an elevated lactic acid of 2.1, acute respiratory failure, tachycardia, tachypnea and acute metabolic encephalopathy -X-ray did not note any acute infiltrate however patient had increased shortness of breath with productive cough, given acute symptoms may not yet show up on imaging or may just not be well-visualized -Admit to the intensive care unit - IV fluids: Patient received 2 L of IV fluids in the ED, based on weight patient would qualify for roughly 3 L however patient given lower amount due to his significantly reduced EF of 25% and concern for fluid overload - Blood and urine cultures obtained in the ED, no diarrhea that is known so stool studies not ordered -DuoNebs and as needed albuterol -Sputum culture, COVID ordered, respiratory panel ordered -Urine antigens -Mucinex, I/S - Vancomycin and Zosyn as patient has grown MRSA and Pseudomonas in sputum previously and azithromycin to cover atypicals # Acute on chronic hypoxic respiratory failure secondary to presumed pneumonia - Patient presented at 78% on 6 L of nasal cannula and improved to 94% on 10 L of high flow and with breathing treatments - Management as above #Chronic heart failure with reduced ejection fraction -proBNP elevated at 4069 however suspect patient's clinical picture primarily due to infection as above -Last echocardiogram 09/04/2023 with EF of 25% and mildly dilated LV with severe global hypokinesis and PASP of 30 -Daily weights -I's and O's -Heart healthy diet - Holding furosemide given patient's presentation and need for fluids #Type 2 diabetes mellitus -Glucose checks and sliding scale insulin # CKD stage III a -Appears to be at baseline -Avoid nephrotoxic agents -Daily BMPs #Hx DVT and PE - Patient had IVC filter in 2021, family unsure if patient still has IVC filter in place - Does have some slight swelling on the right greater than left which per family is not new, will obtain lower extremity venous duplex in an abundance of caution # Recent GI bleed - Was admitted last month and found to have AVMs on endoscopy #Hx of CAD -w/ previous stent placement -Continue home medications #Chronic BPH with obstruction -Continue home medications #GERD -Continue PPI #Depression/anxiety -Continue home medications #Tobacco use -Advise cessation -Nicotine replacement available if desired #DVT ppx: SCDs given GI bleed Mable Pritchard MD Time spent in the patient's overall evaluation, decision-making process, review of diagnostic data, adjustment of management, discussion with other providers, nursing and ancillary staff involved in patient's care documentation,79 Minutes Charges/Coding Visit Charges Inpatient E&M: 08064 Init Hosp L3
[2024-06-20 18:08] LABS: Anisocytosis 1+; Ovalocyte 1+; Platelet Estimate A (ADEQ); Polychromasia 1+
[2024-06-20 18:09] LABS: Basophilic Stippling RARE
[2024-06-20] MEDS: Piperacil/Tazobactam 4.5 GM in 0.9% Normal Saline (100mL MB+) 100 ML IV (18:14)
--- NOTE | 2024-06-20 18:53 | VDLE_ITS ---
Reason For Study Reason For Study: Right leg swelling RIGHT GSV is normal. CFV is compressible, spontaneous, phasic, competent and demonstrates normal augmentation. FV is compressible, spontaneous, phasic, competent and demonstrates normal augmentation. POP V is compressible, spontaneous, phasic, competent and demonstrates normal augmentation. T/P Trunk is compressible. PTV is compressible. RT PerV is compressible. Procedure This is a venous duplex using B-mode, color flow and spectral Doppler. Exam performed portable in ICU/CCU. A preliminary report was called and/or faxed to ICU. VL/Venous Duplex US, Unilateral Interpretation Summary Deep veins of the right lower extremity are patent and compressible segmentally . There is no evidence of right lower extremity deep vein thrombosis. The right great saphenous vein appears patent a nd compressible segmentally. Ordering Physician: Mable Pritchard Referring Physician: Donna Will M.D. Performed By: Brittani العلي RVT
[2024-06-20] MEDS: Vancomycin HCl 2,000 MG in 0.9% Normal Saline (500mL Bag) 500 ML 250 MG IV (19:40)
[2024-06-20] MEDS: Lidocaine Jelly 2% 20 ML Syringe (URO-JET) 1 APPLIC TOPICAL (19:43)
[2024-06-20 20:06] LABS: Mucous, Urine 0 SEEN /hpf (<or=2+)
[2024-06-20 20:09] LABS: Color, Urine Yellow (Yellow); Glucose, Dipstick 1000 mg/dl (Normal); Ketone-Dipstick Negative (Negative); Leukocyte Esterase-Dipstick 25 /ul (Negative); Nitrite-Dipstick Negative (Negative); Occult Blood-Urine 10 /ul (Negative); Protein-Dipstick 30 mg/dl (Negative); Urine Bilirubin Dipstick Negative (Negative); Urine Clarity Clear (Clear); Urine Urobilinogen Normal (Normal); Urine pH 6.5 (5.0 - 8.0)
--- NOTE | 2024-06-20 20:13 | PCM.RX.CS ---
Consult Antibiotic Management Pharmacy has been consulted to manage selected antibiotic: Vancomycin Type of Intervention Type of Consult: New start Suspected Infection Suspected Infection: Sepsis and Pneumonia Labs Labs: Sodium 144 mmol/L (133-145) 06/20/24 16:32 Potassium 4.7 mmol/L (3.3-5.1) 06/20/24 16:32 Chloride 101 mmol/L (98-108) 06/20/24 16:32 Carbon Dioxide 29.8 mmol/L (21.0-32.0) 06/20/24 16:32 Anion Gap 12 (5-15) 06/20/24 16:32 BUN 28 mg/dL (4-19) H 06/20/24 16:32 Creatinine 1.34 mg/dL (0.70-1.20) H 06/20/24 16:32 Est GFR (MDRD) Non-Af 56 (>60) L 06/20/24 16:32 BUN/Creatinine Ratio 21.1 RATIO (10-20) H 06/20/24 16:32 Glucose 184 mg/dL (70-99) H 06/20/24 16:32 Microbiology Microbiology: Microbiology 06/20/24 16:32 Mucosa - Nose SARS-CoV-2, Influenza & RSV (PCR) - Final Dosing Weight Weight used for dosin.4 kg Estimated Creatinine Clearance Estimated Creatinine Clearance: 56 Goal Trough Goal Trough: 15-20 mcg/mL Pharmacy Plan for Drug Dosing Pharmacy Plan for Drug Dosing: Pharmacy Service will continue to monitor and adjust dosing as required. Follow-Up Labs Follow-Up Labs: Trough: Vancomycin Date/Time Labs Ordered Labs to be done on [date and time ordered]: 06/22/24 @0700
[2024-06-20 20:21] LABS: Red Blood Cells-Urine 0-5 SEEN /hpf (0-5); Squamous Epithelial Cells - UA 0-5 SEEN /hpf (0-5); Transitional Epithelial - Ur 0-5 SEEN /hpf (0-5); White Blood Cells 10-25 SEEN /hpf (0-5)
[2024-06-20 20:22] LABS: Bacteria 1+ /hpf (None Seen)
--- NOTE | 2024-06-20 20:28 | PCM.HOSP.N ---
Hospitalist Note Patient has increased O2 requirements, he does follow with pulmonary medicine and appears he supposed to be on inhaled budesonide twice daily with his DuoNebs for his COPD and chronic respiratory failure, given the severity of illness we will switch his inhaled steroids to IV steroids due to his severe underlying COPD and continue antibiotics
[2024-06-20 20:45] LABS: Reflex Lactate? Y
[2024-06-20] MEDS: Ketorolac 15 MG/ML Vial IV (20:57)
[2024-06-20] MEDS: MethylPREDNISolone 125 MG/2 ML Vial IV (20:58)
[2024-06-20] MEDS: 0.9% Saline Lock 10 ML Syringe IV (21:01)
[2024-06-20] MEDS: Pantoprazole Sodium 40 MG Tablet PO (21:22)
[2024-06-20] MEDS: Atorvastatin Calcium 20 MG Tablet PO (21:22)
[2024-06-20] MEDS: Tamsulosin HCl 0.4 MG Capsule PO (21:22)
[2024-06-20] MEDS: Acetaminophen 325 MG Tablet 650 MG PO (21:22)
[2024-06-20 21:52] LABS: Lactic Acid 1.1 mmol/L (0.0-2.0)
[2024-06-20] MEDS: Azithromycin 500 MG in 0.9% Normal Saline (250mL Bag) 250 ML 255 MG IV (21:55)
[2024-06-20] MEDS: Norepinephrine 8 MG in 0.9% Normal Saline (250mL Bag) 242 ML 9.4 MG CONT INF (22:45)
[2024-06-20] MEDS: Piperacil/Tazobactam 3.375 GM in 0.9% Normal Saline (50mL MB+) 50 ML IV (23:05)
[2024-06-21] VITALS (26 sets, daily range): BP systolic 96–137; BP diastolic 50–87; PULSE 63–114; RESP 12–25; TEMP 35.7–37.2; O2SAT 93–100; BMI 29.5
[2024-06-21] MEDS: Ipratropium/Albuterol Sulfate 3 ML AMPUL.NEB INHALATION ×5 (03:05→22:31)
[2024-06-21] MEDS: Piperacil/Tazobactam 3.375 GM in 0.9% Normal Saline (50mL MB+) 50 ML IV ×3 (05:27→23:30)
[2024-06-21] MEDS: Methylprednisolone Sod Succ 40 MG/ML VIAL IV ×3 (05:27→21:44)
[2024-06-21] MEDS: 0.9% Saline Lock 10 ML Syringe IV ×2 (05:36→14:02)
[2024-06-21 06:02] LABS: Absolute Lymphocyte Count 0.43 X10^3/uL (0.83-4.51); Absolute Neutrophil Count 17.8 X10^3/uL (2.0-7.7); Basophil# 0.04 X10^3/uL; Basophil% 0.2 % (0-1); Eosinophil# 0.01 X10^3/uL; Eosinophils% 0.1 % (0-5); Hematocrit 29.1 % (40-54); Hemoglobin 9.2 g/dL (13.0-16.5); Lymphocyte # 0.43 X10^3/ul (0.83-4.51); Lymphocyte % 2.3 % (19-41); Mean Corp Hgb Conc 31.6 g/dL (32-36); Mean Corpuscular Hgb 29.3 pg (27.0-32.0); Mean Corpuscular Volume 92.7 fL (80-94); Mean Platelet Vol. 10.7 fl (6.2-12.0); Monocyte% 2.1 % (0-10); NRBC Flagged by Analyzer 0 % (0-5); Neutrophil # 17.83 X10^3/uL (2.7-7.7); Neutrophil % 94.2 % (47-70); POSITIVE DIFFERENTIAL YES; POSITIVE MORPHOLOGY YES; Platelet Count 186 K/mm3 (150-450); RBC Distribution Width SD 72.3 fl (35.1-43.9); Red Blood Count 3.14 M/mm3 (4.6-6.2); White Blood Count 18.9 K/mm3 (4.4-11.0)
[2024-06-21 06:05] LABS: Differential Indicated SCAN CRITERIA MET
[2024-06-21 06:53] LABS: Anisocytosis 1+; Differential Comment SCANNED; Ovalocyte RARE; Toxic Granulation 2+
[2024-06-21 06:55] LABS: ALB/GLOB Ratio 1.1 RATIO (0.9-2.4); AST(SGOT) 52 U/L (<=37); Alanine Aminotransfer ALT/SGPT 16 U/L (<=46); Albumin, Serum 3.3 g/dL (3.4-4.8); Alkaline Phosphatase 57 U/L (40-129); Anion Gap 15 (5-15); BUN 33 mg/dL (4-19); BUN/Creat Ratio 24.2 RATIO (10-20); Calcium,Total 8.4 mg/dL (7.6-11.0); Chloride 107 mmol/L (98-108); Creatinine, Serum 1.38 mg/dL (0.70-1.20); EST Glomerular Filtration Rate 54 (>60); Estimated Creatinine Clearance 55.44 ml/min (50-250); Globulin 2.9 g/dL (2.2-4.2); Glucose 219 mg/dL (70-99); Potassium 4.6 mmol/L (3.3-5.1); Protein, Total 6.2 g/dL (5.9-8.4); Sodium Level 144 mmol/L (133-145); Total Bilirubin 0.78 mg/dL (0.00-1.30)
--- NOTE | 2024-06-21 07:09 | PN.HOSP_ITS ---
Reason for Visit Reason for Visit: Diagnoses Acute and chronic respiratory failure with hypoxia (06/20/24) Subjective Subjective Patient is a 73-year-old gentleman with multiple comorbidities including ischemic cardiomyopathy, COPD/home oxygen who presented to the emergency department with progressive shortness of breath as well as cough productive of yellowish sputum. An assessment of sepsis secondary to pneumonia made on admission admitted to the intensive care unit for subsequent management Objective Data Objective Data Vital Signs: Vital Signs Temp Pulse Resp BP Pulse Ox O2 Del Method O2 Flow Rate 97.2 F L 73 23 H 129/60 H 96 Bi-pap 13 06/21/24 07:00 06/21/24 07:00 06/21/24 07:00 06/21/24 07:00 06/21/24 07:00 06/21/24 07:00 06/20/24 22:00 FiO2 35 06/21/24 07:00 Oxygen Flow Rate (L/min) 13 Oxygen Delivery Method Bi-pap Weight: 95.7 kg Body Mass Index (BMI) 29.5 Intake & Output: Intake and Output for Last 24 Hours 06/19/24 06/20/24 06/21/24 23:59 23:59 23:59 Intake Total 2907.73 / 2910.08 118.15 / 118.15 Output Total 650 / 650 300 / 300 Balance 2257.73 / 2260.08 -181.85 / -181.85 Lab / Micro Data 06/21/24 05:40 06/21/24 05:40 Labs: Laboratory Results - last 24 hr 06/20/24 16:30: Lactic Acid 2.1 H*, NT pro BNP II 4069 H 06/20/24 16:32: WBC 15.6 H, RBC 3.54 L, Hgb 10.2 L, Hct 33.0 L, MCV 93.2, MCH 28.8, MCHC 30.9 L, RDW Std Deviation 71.4 H, RDW Coeff of Rafael 20.7 H, Plt Count 232, MPV 11.0, Immature Gran % (Auto) 0.900, Neut % (Auto) 79.5 H, Lymph % (Auto) 11.6 L, Stephens % (Auto) 6.1, Eos % (Auto) 1.6, Baso % (Auto) 0.3, Absolute Neuts (auto) 12.4 H, Absolute Lymphs (auto) 1.82, Nucleated RBC % 0.1, Platelet Estimate A, Polychromasia 1+, Basophilic Stippling RARE, Anisocytosis 1+, Ovalocytes 1+, PT 13.4, INR 1.0, APTT 21.3 L, Sodium 144, Potassium 4.7, Chloride 101, Carbon Dioxide 29.8, Anion Gap 12, BUN 28 H, Creatinine 1.34 H, Estim Creat Clear Calc 55.79, Est GFR (MDRD) Non-Af 56 L, BUN/Creatinine Ratio 21.1 H, Glucose 184 H, Calcium 9.5, Total Bilirubin 0.74, AST 16, ALT 14, Alkaline Phosphatase 68, Total Protein 7.3, Albumin 4.0, Globulin 3.4, Albumin/Globulin Ratio 1.2, Procalcitonin 0.10 06/20/24 16:40: Blood Type AB POSITIVE, Antibody Screen NEGATIVE 06/20/24 19:55: Urine Color Yellow, Urine Clarity Clear, Urine pH 6.5, Ur Specific Bannister 1.010, Urine Protein 30 H, Urine Glucose (UA) 1000 H, Urine Ketones Negative, Urine Occult Blood 10 H, Urine Nitrite Negative, Urine Bilirubin Negative, Urine Urobilinogen Normal, Ur Leukocyte Esterase 25 H, Urine RBC 0-5 SEEN, Urine WBC 10-25 SEEN, Ur Squamous Epith Cells 0-5 SEEN, Ur Transition Epith Cell 0-5 SEEN, Urine Bacteria 1+, Urine Mucus 0 SEEN 06/20/24 21:20: Lactic Acid 1.1 06/21/24 05:40: WBC 18.9 H, RBC 3.14 L, Hgb 9.2 L, Hct 29.1 L, MCV 92.7, MCH 29.3, MCHC 31.6 L, RDW Std Deviation 72.3 H, RDW Coeff of Rafael 21.0 H, Plt Count 186, MPV 10.7, Immature Gran % (Auto) 1.100 H, Neut % (Auto) 94.2 H, Lymph % (Auto) 2.3 L, Stephens % (Auto) 2.1, Eos % (Auto) 0.1, Baso % (Auto) 0.2, Absolute Neuts (auto) 17.8 H, Absolute Lymphs (auto) 0.43 L, Nucleated RBC % 0, Differential Comment SCANNED, Toxic Granulation 2+, Anisocytosis 1+, Ovalocytes RARE, Sodium 144, Potassium 4.6, Chloride 107, Carbon Dioxide 23.0, Anion Gap 15, BUN 33 H, Creatinine 1.38 H, Estim Creat Clear Calc 55.44, Est GFR (MDRD) Non-Af 54 L, BUN/Creatinine Ratio 24.2 H, Glucose 219 H, Calcium 8.4, Total Bilirubin 0.78, AST 52 H, ALT 16, Alkaline Phosphatase 57, Total Protein 6.2, A lbumin 3.3 L, Globulin 2.9, Albumin/Globulin Ratio 1.1 Micro: Microbiology 06/20/24 16:30 Blood Culture (Wb) - Venous Blood Culture - Preliminary 06/20/24 20:05 Mucosa - Nasopharyngeal Respiratory Panel (PCR) - Final 06/20/24 19:55 Urine Catheter - Ball Legionella Antigen - Final 06/20/24 19:55 Urine Catheter - Ball Streptococcus pneumoniae Antigen (M - Final 06/20/24 16:32 Mucosa - Nose SARS-CoV-2, Influenza & RSV (PCR) - Final ABG Data ABG results: ABG 06/20/24 16:32 Specimen Type ART Sample Site L Radial pH 7.46 H Bicarbonate Actual 33.4 H Total CO2 35 Base Excess 10 H O2 Saturation 87 L O2 % 4.0 ABG pCO2 47.0 H ABG pO2 51 L Thompson Test Positive O2 Delivery Device Cannula Vent Mode Not entered Radiography Diagnostic Testing: Radiology Impression Chest X-Ray 06/20/24 16:35 IMPRESSION: Poor inspiration with some bibasilar atelectasis. Reading Location: [facility] Physical Exam Narrative GENERAL: cooperative HEENT: Atraumatic; normocephalic EYES; Anicteric, Normal Conjunctiva NECK; supple, normal thyroid, RESPIRATORY: Diminished to auscultation CARDIOVASCULAR: Regular S1 S2, GI: soft, normoactive bowel sounds, : No Renal angle tenderness; EXTREMITIES: Bilateral stasis dermatitis with some edema MUSCULOSKELETAL: no muscle wasting NEURO: Awake; no lateralizing signs. SKIN: No Rash PSYCH; Flat affect Assessment & Plan Assessment/Plan (1) Acute and chronic respiratory failure with hypoxia: PLAN: Plan Patient is a 73-year-old gentleman with multiple comorbidities including ischemic cardiomyopathy, COPD/home oxygen who presented to the emergency department with progressive shortness of breath as well as cough productive of yellowish sputum. An assessment of sepsis secondary to pneumonia made on admission admitted to the intensive care unit for subsequent management 1. Septic shock ? Secondary to pneumonia. Treatment initiated per protocol with fluid resuscitation, antibiotics per protocol and subsequent response to therapy monitored with serial lactic acid levels. Patient had to be placed on pressor support with Levophed which has since been weaned off. 2. Acute on chronic hypoxic respiratory failure ? Secondary to pneumonia. Patient is on baseline oxygen 3 L at rest patient was found to be saturating 78% on 6 L. Placed on high flow oxygen 3. 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 Echo from 09/04/2023 demonstrated EF of 25% with severe global hypokinesis. Patient remains compensated at this point 4. Diabetes mellitus type II Placed on long acting insulin, Accu-Cheks a.c. and at bedtime and covered with sliding scale insulin 5.? Chronic hypoxic respiratory failure ? Secondary to suspected pulmonary fibrosis COPD and CHF. Patient is on supplemental oxygen at home 6.? 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 Previously treated with apixaban.? Patient did not tolerate apixaban as a result of GI bleed he underwent IVC filter placement on 05/02/2021 7.? Rheumatoid arthritis Patient previously treated with rituximab as outpatient 8.? Non Hodgkin's lymphoma ? in remission 9.? Coronary artery disease ?With previous PCI of an LAD RCA and mid circumflex lesions 10. BPH with lower urinary obstructive symptoms - Patient treated with tamsulosin 11. GERD The patient is on PPI 12. Chronic kidney disease stage IIIb ? Patient kidney function at baseline 13.? Dyslipidemia -Patient is on statin therapy, continued at home dose 14..? Hypertension - Blood pressure controlled, home medications continued with dose adjustment as needed 15. Depression ? Patient is on Remeron and escitalopram plan is to resume following med rec 16. DVT prophylaxis ? Bilateral SCDs Time spent in the patient's overall evaluation,decision-making process, review of diagnostic data, adjustment of management, discussion with other providers, nursing nursing and ancillary staff involved in patient's care documentation, 50 minutes Charges/Coding Visit Charges Inpatient E&M: 61737 [facility] Hosp L3
[2024-06-21] MEDS: Insulin Lispro 100 UNIT/ML INSULN.PEN SC ×4 (08:08→21:44)
[2024-06-21] MEDS: Vancomycin IV 1,000 MG/200 ML BAG 200 MG IV ×2 (08:09→19:32)
--- NOTE | 2024-06-21 08:13 | EX.PCM.CONCC ---
Assessment & Plan Assessment/Plan (1) Sepsis: PLAN: Plan RECOMMENDATIONS: 1. Continue supplemental oxygen to maintain saturations at or above 90%. 2. Continue empiric antibiotics, pending infectious workup. 3. Continue scheduled bronchodilators and steroids. 4. Obtain and send sputum for sample. 5. Continue bronchopulmonary hygiene. 6. Encourage incentive spirometer use and mobilize patient as tolerated. IMPRESSIONS: 1. Septic shock Unclear source of infection at this time. The patient did present with a fever and mild lactic acidemia, only to develop fluid refractory hypotension which required transient use of Levophed. Chest imaging, however, was largely underwhelming for the presence of pneumonia. The patient has a known history of bronchiectasis. Therefore, a chronic productive cough is normal for him. It is certainly plausible that he could have underlying tracheobronchitis. At this time, the patient has been weaned from vasopressor support and remains hemodynamically stable. He does have a history of MRSA and Pseudomonas in the sputum. Therefore, we will continue current antimicrobial coverage. Will obtain follow-up chest x-ray this morning as well. Blood cultures are currently growing gram-positive cocci in clusters. 2. Acute on chronic hypoxemic respiratory failure in the setting of COPD The patient has a known history of COPD, bronchiectasis and chronic hypoxemic respiratory failure with a baseline oxygen requirement of 4 to 5 L/min. He is currently maintaining appropriate oxygen saturations on his baseline requirement. In addition to the antimicrobials noted above, the patient will be continued on scheduled bronchodilators and steroids. If the patient is able to produce a sputum sample, recommend sending for culture. 3. History of Hodgkin's lymphoma/iron deficiency anemia/heart failure with reduced ejection fraction/coronary artery disease/hypertension/hyperlipidemia Complicates care, management, recovery and prognosis. Continue supportive measures as noted above. Home antihypertensives will be held for now. This note was generated with [employer] dictation software. It may contain incorrect words, spelling, and punctuation that were not noted in checking the note before signing. HPI Consult Data Date of Consult: 06/21/24 HPI Narrative Reason for Consultation: Sepsis HPI Narrative: The patient is a 73-year-old male, with a history as outlined below, who presented to the emergency department on June 20 with generalized weakness and confusion. The patient has a known history of COPD, chronic hypoxemic respiratory failure with a baseline oxygen requirement of 4 to 5 L/min and known bronchiectasis, with chronic productive cough. The patient also has a remote history of Hodgkin's lymphoma along with iron deficiency anemia, heart failure with reduced ejection fraction, coronary artery disease, hypertension and hyperlipidemia. The patient reported that he fell several days ago after tripping on his oxygen tubing and has been dealing with rib related pain since that time. The patient also reported that he has been generally weak and did not feel himself. When questioned specifically, the patient reported that his chronic productive cough is largely unchanged. On presentation to the emergency department, the patient was documented to be febrile, tachycardic and tachypneic. Laboratory evaluation was notable for a white blood cell count of 16,000. Hemoglobin and platelet count were stable. Arterial blood gas was notable for a pH of 7.46 with a pCO2 of 47 and pO2 of 51. Chemistry profile was notable for a creatinine of 1.34. Lactate was elevated at 2.1. BNP was increased at 4069. Procalcitonin was within normal limits. Chest x-ray demonstrated bibasilar atelectasis. No focal infiltrate or consolidation was identified. The patient ultimately received supplemental IV fluid hydration and was initiated on antimicrobial therapy. The patient was placed on BiPAP and admitted to the medical intensive care unit for further management. It does appear that the patient developed hypotension, which ultimately required vasopressor support. This morning, the patient was weaned from BiPAP and placed on his baseline supplemental oxygen at 4 L/min. In addition, the patient was weaned off of vasopressor support completely and remains hemodynamically stable. COUNTS INCLUDE 234 BEDS AT THE [facility] Medical History MRSA (methicillin resistant staph aureus) culture positive Ischemic cardiomyopathy COVID-19 Lethargic COPD with acute exacerbation Elevated troponin I level LUIS (acute kidney injury) Hypoxemia Chronic kidney disease (CKD), stage III (moderate) Acute hypoxic on chronic hypercapnic respiratory failure FTT (failure to thrive) in adult Former smoker On home oxygen therapy Bleeding tendency Ulcer High cholesterol History of stress test HTN (hypertension) Tobacco abuse History of pulmonary embolus (PE) (04/30/21) Essential hypertension Type 2 diabetes mellitus DVT (deep venous thrombosis) (05/01/21) Rhinovirus Acute respiratory failure with hypoxia Physical debility COVID-19 in immunocompromised patient Nicotine dependence, cigarettes, uncomplicated Diabetes Arthritis Cancer COPD (chronic obstructive pulmonary disease) History of basal cell carcinoma Atherosclerosis of coronary artery of [place] heart without angina pectoris Pneumonia Non-Hodgkin lymphoma History of pilonidal cyst Allergic rhinitis 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 complications Gastritis Colon polyp Obesity Asthma Chronic bronchitis Positive colorectal cancer screening using Cologuard test RA (rheumatoid arthritis) Home Medications ?Medication ?Instructions ?Recorded ?Last Taken ?Type finasteride 5 mg tablet 5 mg PO DAILY prostate 08/14/22 03/16/23 History tamsulosin 0.4 mg capsule 0.4 mg PO QHS prostate 08/14/22 03/15/23 History multivitamin 1 tab PO DAILY vitamin 09/13/22 03/16/23 History menthol 0.44 %-zinc oxide 20.6 % 1 applic topical 4-6XD PRN skin 03/07/23 Unknown Rx topical ointment (Calmoseptine) irritation #113 grams carvedilol 3.125 mg tablet 3.125 mg PO BID #60 tabs 06/05/23 Unknown Rx atorvastatin 40 mg tablet 20 mg (1/2 x 40 mg) PO QHS 09/18/23 Unknown Rx cholesterol #90 tabs budesonide 1 mg/2 mL suspension 1 mg (2 mL) inhalation Q12H #120 mL 09/19/23 Unknown Rx for nebulization ipratropium 0.5 mg-albuterol 3 mg 3 ml inhalation Q4H PRN PRN SOB 09/19/23 Unknown Rx (2.5 mg base)/3 mL nebulization &/OR WHEEZING #270 mL soln escitalopram oxalate 10 mg tablet 10 mg PO DAILY mood 90 days #90 10/29/23 Unknown Rx tabs mirtazapine 15 mg tablet (Remeron) 7.5 mg (1/2 x 15 mg) PO QHS sleep 10/29/23 Unknown Rx #90 tabs insulin aspart U-100 100 unit/mL See Protocol subcut ACHS 1 month 11/12/23 Unknown Rx (3 mL) subcutaneous pen #15 mL needle (disp) 32 gauge 32 gauge x #100 ea 11/12/23 Unknown Rx 5/16 (Easy Touch Hypodermic Needle) insulin lispro 100 unit/mL 15 unit (0.15 mL) subcut 11/24/23 Unknown Rx subcutaneous pen (Humalog KwikPen 0800,1200,1700 #0 mL (U-100) Insulin) pen needle, diabetic 32 gauge x #100 ea 12/03/23 Unknown Rx 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 meter,continuous #1 ea 12/24/23 Unknown Rx (FreeStyle Basilio 3 [place]) 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 sensor (FreeStyle #1 ea 12/24/23 Unknown Rx Basilio 3 Sensor device) furosemide 40 mg tablet (Lasix) 20 mg (1/2 x 40 mg) PO DAILY 03/08/24 Unknown Rx diuretic #60 tabs insulin glargine-yfgn 100 unit/mL 15 unit (0.15 mL) subcut DAILY #15 03/08/24 Unknown Rx (3 mL) subcutaneous pen mL empagliflozin 10 mg tablet 10 mg PO QDAY 03/16/24 Unknown History (Jardiance) ferrous sulfate 325 mg (65 mg 325 mg PO QODAY Supplement 04/05/24 04/06/24 History iron) tablet (FeroSul) medlist intranasal TID 05/18/24 Unknown History pantoprazole 40 mg tablet,delayed 40 mg PO BID reflux 3 months #180 06/04/24 Unknown Rx release tabs Allergy/AdvReac Type Severity Reaction Status Date / Time No Known Allergies Allergy Verified 05/20/24 12:44 Family History Father Arthritis Bleeding disorder Hypertension Kidney disease Cancer Skin Anemia blood clots Emphysema lung Mother Colon cancer Cancer Lung Cancer Diabetes Brother Thyroid disorder Surgical History History of embolic filter insertion History of heart artery stent Status post cardiac surgery H/O cardiac catheterization Presence of IVC filter (04/2021) History of coronary artery stent placement (10/22/13) History of thymectomy Hx of lymph node excision History of excision of pilonidal cyst Social History (Updated 05/18/24 @ 14:24 by Katy Shirley) household members: spouse Smoking Status: Current some day smoker tobacco type: cigarettes Tobacco: How many years used: 55 second hand exposure: Yes alcohol intake: current alcohol intake frequency: holidays/special occasions only substance use type: does not use caffeine: Yes Type: coffee Number of servings: 3 what type of physical activity do you participate in: none frequency: does not exercise seatbelt use: always ROS ROS Narrative 10 systems were reviewed with pertinent positives as noted in the HPI above. Physical Exam Const alert and no apparent distress General Appearance: cooperative HEENT normocephalic and head/scalp atraumatic Eyes PERRL, EOMs intact bilaterally and conjunctivae normal Neck supple General: trachea midline Chest inspection of chest normal Resp normal respiratory effort Auscultation: diminished lung sounds Cardio regular rate and regular rhythm GI normal to inspection, nondistended, normoactive bowel sounds Extremity no clubbing, cyanosis or edema Skin no rashes or lesions noted Neuro CN's II-XII intact bilaterally, moves all extremities and no focal motor deficits Psych cooperative and affect normal Lab / Micro Data 06/21/24 05:40 06/21/24 05:40 Labs: Laboratory Results - last 24 hr 06/20/24 16:30: Lactic Acid 2.1 H*, NT pro BNP II 4069 H 06/20/24 16:32: WBC 15.6 H, RBC 3.54 L, Hgb 10.2 L, Hct 33.0 L, MCV 93.2, MCH 28.8, MCHC 30.9 L, RDW Std Deviation 71.4 H, RDW Coeff of Rafael 20.7 H, Plt Count 232, MPV 11.0, Immature Gran % (Auto) 0.900, Neut % (Auto) 79.5 H, Lymph % (Auto) 11.6 L, [place] % (Auto) 6.1, Eos % (Auto) 1.6, Baso % (Auto) 0.3, Absolute Neuts (auto) 12.4 H, Absolute Lymphs (auto) 1.82, Nucleated RBC % 0.1, Platelet Estimate A, Polychromasia 1+, Basophilic Stippling RARE, Anisocytosis 1+, Ovalocytes 1+, PT 13.4, INR 1.0, APTT 21.3 L, Sodium 144, Potassium 4.7, Chloride 101, Carbon Dioxide 29.8, Anion Gap 12, BUN 28 H, Creatinine 1.34 H, Estim Creat Clear Calc 55.79, Est GFR (MDRD) Non-Af 56 L, BUN/Creatinine Ratio 21.1 H, Glucose 184 H, Calcium 9.5, Total Bilirubin 0.74, AST 16, ALT 14, Alkaline Phosphatase 68, Total Protein 7.3, Albumin 4.0, Globulin 3.4, Albumin/Globulin Ratio 1.2, Procalcitonin 0.10 06/20/24 16:40: Blood Type AB POSITIVE, Antibody Screen NEGATIVE 06/20/24 19:55: Urine Color Yellow, Urine Clarity Clear, Urine pH 6.5, Ur Specific [place] 1.010, Urine Protein 30 H, Urine Glucose (UA) 1000 H, Urine Ketones Negative, Urine Occult Blood 10 H, Urine Nitrite Negative, Urine Bilirubin Negative, Urine Urobilinogen Normal, Ur Leukocyte Esterase 25 H, Urine RBC 0-5 SEEN, Urine WBC 10-25 SEEN, Ur Squamous Epith Cells 0-5 SEEN, Ur Transition Epith Cell 0-5 SEEN, Urine Bacteria 1+, Urine Mucus 0 SEEN 06/20/24 21:20: Lactic Acid 1.1 06/21/24 05:40: WBC 18.9 H, RBC 3.14 L, Hgb 9.2 L, Hct 29.1 L, MCV 92.7, MCH 29.3, MCHC 31.6 L, RDW Std Deviation 72.3 H, RDW Coeff of Rafael 21.0 H, Plt Count 186, MPV 10.7, Immature Gran % (Auto) 1.100 H, Neut % (Auto) 94.2 H, Lymph % (Auto) 2.3 L, [place] % (Auto) 2.1, Eos % (Auto) 0.1, Baso % (Auto) 0.2, Absolute Neuts (auto) 17.8 H, Absolute Lymphs (auto) 0.43 L, Nucleated RBC % 0, Differential Comment SCANNED, Toxic Granulation 2+, Anisocytosis 1+, Ovalocytes RARE, Sodium 144, Potassium 4.6, Chloride 107, Carbon Dioxide 23.0, Anion Gap 15, BUN 33 H, Creatinine 1.38 H, Estim Creat Clear Calc 55.44, Est GFR (MDRD) Non-Af 54 L, BUN/Creatinine Ratio 24.2 H, Glucose 219 H, Calcium 8.4, Total Bilirubin 0.78, AST 52 H, ALT 16, Alkaline Phosphatase 57, Total Protein 6.2, Albumin 3.3 L, Globulin 2.9, Albumin/Globulin Ratio 1.1 Micro: Microbiology 06/20/24 16:30 Blood Culture (Wb) - Venous Blood Culture - Preliminary 06/20/24 20:05 Mucosa - Nasopharyngeal Respiratory Panel (PCR) - Final 06/20/24 19:55 Urine Catheter - Ball Legionella Antigen - Final 06/20/24 19:55 Urine Catheter - Ball Streptococcus pneumoniae Antigen (M - Final 06/20/24 16:32 Mucosa - Nose SARS-CoV-2, Influenza & RSV (PCR) - Final ABG Data ABG results: ABG 06/20/24 16:32 Specimen Type ART Sample Site L Radial pH 7.46 H Bicarbonate Actual 33.4 H Total CO2 35 Base Excess 10 H O2 Saturation 87 L O2 % 4.0 ABG pCO2 47.0 H ABG pO2 51 L Thompson Test Positive O2 Delivery Device Cannula Vent Mode Not entered Imaging Radiology Impression Chest X-Ray 06/20/24 16:35 IMPRESSION: Poor inspiration with some bibasilar atelectasis. Reading Location: [id number] Charges/Coding Visit Charges Inpatient E&M: 84630 Init Hosp L3
[2024-06-21 08:35] LABS: Bedside Glucose 196 mg/dL (74-106)
--- NOTE | 2024-06-21 10:05 | RAD_ITS ---
PROCEDURE: CHEST 1 VIEW (PORTABLE) 06/21/2024 REASON FOR EXAM: RESPIRATORY FAILURE TECHNIQUE: 2 frontal views COMPARISON: June 20, 2024 FINDINGS: There is a PICC line in position on the right with its tip in the superior vena cava above the right atrium. Sternotomy wires are noted. There is mild cardiomegaly. Central vascularity appears increased. There is subsegmental consolidation in the retrocardiac region, new. There is no significant effusion. There is no visible pneumothorax. RAD/Chest 1 View (Portable) IMPRESSION: There is mild cardiomegaly. Central vascularity appears increased. There is subsegmental consolidation in the retrocardiac region, new. Reading Location: [facility]
[2024-06-21] MEDS: guaiFENesin 1,200 MG Tablet 1200 MG PO (10:19)
[2024-06-21] MEDS: Finasteride 5 MG Tablet PO (10:19)
[2024-06-21] MEDS: Pantoprazole Sodium 40 MG Tablet PO ×2 (10:19→21:44)
--- NOTE | 2024-06-21 10:20 | CASEMGMT ---
TARAH DEL RIO Assessment Face to Face with patient for initial transition planning/care coordination assessment. TARAH DEL RIO introduced self and role at [facility], pt voices understanding. Pt is A&Ox4 and is resting comfortably in bed and is calm. Care providers, pharmacy, and demographics verified. Admitting dx: Suspected Sepsis and Pneumonia LACE Strata: 3 PCP: Donna Will Specialists: Benny (Oncology), Anna Marie Singleton (Pulmonary), Friend (GI) Preferred Pharmacy: [facility] Insurance: [employer] [facility] Prescription Benefit: Yes LNOK: Ray Quintana (Son and POA), Jin Quintana (Son) Living Arrangements: Pt is currently lives at his son's (Ray) home with his son and DIL only. Pt states that this is a single story home with 2 steps to enter ADLs/IADLs: Pt states that he is mainly independent but that his family helps with tasks such as cooking and cleaning. Transportation: Pt states that he has not been driving. Pt states that his son and DIL drive him and denies concerns DME: Home oxygen through [employer]. Verified by Michael that the pt's current order states 4LPM VIA NC CON, 6LPM W/ EXERTION. Pt states that he has portability that his son can bring in @ DC. Pt also has a pulse ox, nebulizer, inhaler, CBGM with sensors (supplied through [employer]), backup BGM with sufficient supplies, shower chair, grab bars, FWW, cane, and BSC. Per ICU rounds, pt RN reports that the pt had a recent fall at home. Pt states that he does not have any form of medical alert system. Resources provided and encouraged to get set up. HHC/SNF: Pt has a history with [facility]. Denies SNF hx or needs. Pt is active with Palliative care and states that he has an appt Friday. E-Mail sent to [facility] to notify them of pt's admission. Pt?s goal: Home Plan: Anticipate eventual DC home with family once the pt is medically ready with the continuation of Palliative Care. Follow for increased O2 demands. At this time, the pt denies the need for skilled HHC, OP Tx, or SNF. Pt states that he feels safe returning home with his family at the time of DC. PT is ordered and pending. CM to follow. Pt denies further questions or concerns at this time. B Riddle RN CM
[2024-06-21 12:23] LABS: Bedside Glucose 116 mg/dL (74-106)
[2024-06-21 12:34] LABS: Bedside Glucose 268 mg/dL (74-106)
[2024-06-21 16:40] LABS: Bedside Glucose 301 mg/dL (74-106)
[2024-06-21] MEDS: Azithromycin 500 MG in 0.9% Normal Saline (250mL Bag) 250 ML 255 MG IV (21:44)
[2024-06-21] MEDS: Tamsulosin HCl 0.4 MG Capsule PO (21:44)
[2024-06-21] MEDS: Atorvastatin Calcium 20 MG Tablet PO (21:44)
[2024-06-22] VITALS (9 sets, daily range): BP systolic 103–128; BP diastolic 53–75; PULSE 67–85; RESP 16–22; TEMP 35.6–36.8; O2SAT 93–99; BMI 29.5
[2024-06-22 00:50] LABS: Bedside Glucose 330 mg/dL (74-106)
[2024-06-22] MEDS: Methylprednisolone Sod Succ 40 MG/ML VIAL IV ×3 (05:07→21:53)
[2024-06-22] MEDS: Piperacil/Tazobactam 3.375 GM in 0.9% Normal Saline (50mL MB+) 50 ML IV ×3 (05:10→23:40)
--- NOTE | 2024-06-22 06:41 | PN.CC_ITS ---
Assessment & Plan Assessment/Plan (1) Sepsis: PLAN: Plan RECOMMENDATIONS: 1. Continue supplemental oxygen to maintain saturations at or above 90%. 2. Continue antimicrobials per ID recommendations. 3. Echocardiogram is pending. 4. Continue scheduled bronchodilators and steroids. 5. Continue bronchopulmonary hygiene. 6. Encourage incentive spirometer use and mobilize patient as tolerated. IMPRESSIONS: 1. Septic shock Secondary to staphylococcal pneumonia with secondary hematogenous spread. Although the patient transiently required vasopressor support, he has been weaned from Levophed and remains hemodynamically stable. The patient remains on antimicrobial therapy under the discretion of infectious diseases, with tentative plans for echocardiogram to be completed today. 2. Acute on chronic hypoxemic respiratory failure in the setting of COPD The patient has a known history of COPD, bronchiectasis and chronic hypoxemic respiratory failure with a baseline oxygen requirement of 4 to 5 L/min. He is currently maintaining appropriate oxygen saturations on his baseline requirement. In addition to the antimicrobials noted above, the patient will be continued on scheduled bronchodilators and steroids. 3. History of Hodgkin's lymphoma/iron deficiency anemia/heart failure with reduced ejection fraction/coronary artery disease/hypertension/hyperlipidemia Complicates care, management, recovery and prognosis. Continue supportive measures as noted above. This note was generated with [employer] dictation software. It may contain incorrect words, spelling, and punctuation that were not noted in checking the note before signing. Subjective Subjective The patient was seen and examined at the bedside this morning. Events from the last 24 hours have been reviewed. The patient is currently afebrile, hemodynamically stable and maintaining appropriate oxygen saturations on 4 L/min via nasal cannula. White blood cell count this morning was noted to be 14,000. Hemoglobin is stable at 8.3 g/dL. Objective Data Objective Data The patient's most recent lab work, culture data and imaging studies have all been personally reviewed. Blood cultures dated June 20 were positive for MRSA. Sputum culture dated June 21 was positive for Staph aureus as well. Vital Signs: Vital Signs Temp Pulse Resp BP Pulse Ox O2 Del Method O2 Flow Rate 96.1 F L 67 18 103/53 L 99 Nasal Cannula 4 06/22/24 02:45 06/22/24 02:45 06/22/24 02:45 06/22/24 02:45 06/22/24 02:45 06/22/24 02:45 06/22/24 02:45 FiO2 30 06/21/24 23:08 Oxygen Flow Rate (L/min) 4 Oxygen Delivery Method Nasal Cannula Weight: 211 lb 10.3 oz Body Mass Index (BMI) 29.5 Intake & Output: Intake and Output for Last 24 Hours 06/20/24 06/21/24 06/22/24 23:59 23:59 23:59 Intake Total 2907.73 / 2910.08 1317.55 / 1317.55 305 / 305 Output Total 650 / 650 625 / 625 Balance 2257.73 / 2260.08 692.55 / 692.55 305 / 305 Lab / Micro Data Attestation: I reviewed the patient's lab results. 06/22/24 07:32 06/22/24 07:32 Labs: Laboratory Results - last 24 hr 06/20/24 21:19: POC Glucose 116 H 06/21/24 05:40: Differential Comment SCANNED, Toxic Granulation 2+, Anisocytosis 1+, Ovalocytes RARE, Sodium 144, Potassium 4.6, Chloride 107, Carbon Dioxide 23.0, Anion Gap 15, BUN 33 H, Creatinine 1.38 H, Estim Creat Clear Calc 55.44, E st GFR (MDRD) Non-Af 54 L, BUN/Creatinine Ratio 24.2 H, Glucose 219 H, Calcium 8.4, Total Bilirubin 0.78, AST 52 H, ALT 16, Alkaline Phosphatase 57, Total Protein 6.2, Albumin 3.3 L, Globulin 2.9, Albumin/Globulin Ratio 1.1 06/21/24 08:03: POC Glucose 196 H 06/21/24 12:12: POC Glucose 268 H 06/21/24 16:16: POC Glucose 301 H 06/21/24 21:43: POC Glucose 330 H Micro: Microbiology 06/20/24 16:30 Blood Culture (Wb) - Venous Blood Culture - Preliminary 06/21/24 10:00 Sputum, Expectorated/Coughed Gram Stain - Final 06/20/24 16:30 Blood Culture (Wb) - Venous Bacteria Detection (PCR) - Final Meth. resistant Staph. aureus 06/20/24 16:30 Blood Culture (Wb) - Venous Blood Culture - Preliminary 06/20/24 20:05 Mucosa - Nasopharyngeal Respiratory Panel (PCR) - Final 06/20/24 19:55 Urine Catheter - Ball Legionella Antigen - Final 06/20/24 19:55 Urine Catheter - Ball Streptococcus pneumoniae Antigen (M - Final 06/20/24 16:32 Mucosa - Nose SARS-CoV-2, Influenza & RSV (PCR) - Final Radiography Diagnostic Testing: Radiology Impression Venous Doppler Study 06/20/24 18:53 Interpretation Summary Deep veins of the right lower extremity are patent and compressible segmentally. There is no evidence of right lower extremity deep vein thrombosis. The right great saphenous vein appears patent and compressible segmentally. Ordering Physician: Mable Pritchard Referring Physician: Donna Will M.D. Performed By: Brittani العلي RVT Chest X-Ray 06/21/24 10:05 IMPRESSION: There is mild cardiomegaly. Central vascularity appears increased. There is subsegmental consolidation in the retrocardiac region, new. Reading Location: [facility] Physical Exam Const alert and no apparent distress General Appearance: cooperative HEENT normocephalic and head/scalp atraumatic Eyes PERRL, EOMs intact bilaterally and conjunctivae normal Neck supple General: trachea midline Chest inspection of chest normal Resp normal respiratory effort Auscultation: diminished lung sounds Cardio regular rate and regular rhythm GI normal to inspection, nondistended, normoactive bowel sounds Extremity no clubbing, cyanosis or edema Skin no rashes or lesions noted Neuro CN's II-XII intact bilaterally, moves all extremities and no focal motor deficits Psych cooperative and affect normal Charges/Coding Visit Charges Inpatient E&M: 87536 Subs Hosp L2
[2024-06-22] MEDS: Insulin Lispro 100 UNIT/ML INSULN.PEN SC ×4 (06:47→21:57)
[2024-06-22] MEDS: Ipratropium/Albuterol Sulfate 3 ML AMPUL.NEB INHALATION ×4 (07:01→19:53)
[2024-06-22 07:09] LABS: Bedside Glucose 307 mg/dL (74-106)
--- NOTE | 2024-06-22 07:41 | ECHOCS_ITS ---
Reason For Study Reason For Study: BACTEREMIA Procedure This was a 2D Doppler, Color Flow transthoracic echocardiogram. The study was technically difficult. Exam performed portable in patient room. Left Ventricle Mildly dilated left ventricle. The estimated ejection fraction is 25 %. There is evidence of diastolic dysfunction. There is severe global hypokinesis of the left ventricle. Right Ventricle Normal RV size. Normal systolic function. Atria The left and right atria are normal. No doppler evidence for ASD. Mitral Valve There is moderate mitral annular calcification. There is no mitral valve stenosis. Trivial mitral valve insufficiency. Tricuspid Valve There is no tricuspid stenosis. Trivial tricuspid valve insufficiency. Pulmonary artery systolic pressure is 50 mmHg. Aortic Valve Trisinus/trileaflet aortic valve. There is no aortic stenosis. No aortic valve insufficiency. Pulmonic Valve There is no pulmonic valvular stenosis. No pulmonic valve insufficiency. Great Vessels Normal sized aortic root. Pericardium/Pleural No pericardial effusion. Medication Diluted definity 1.5ml given slow IV push to enhance endocardial definition. MMode/2D Measurements & Calculations LVIDd: 6.0 cm IVSd: 1.2 cm LVOT diam: 2.0 cm LVIDs: 5.2 cm LVPWd: 1.1 cm RVDd: 3.4 cm FS: 13.4 % LVOT area: 3.3 cm2 Ao root diam: 3.1 cm LAV(MOD-bp): 50.4 ml LVAd ap4: 41.5 cm2 LAV(MOD-bp) Indexed: 23.4 ml/m2 LVLd ap4: 8.8 cm LAV(MOD-sp2): 52.4 ml EDV(MOD-sp4): 159.9 ml LAV(MOD-sp4): 43.3 ml EDV(sp4-el): 165.9 ml LVAs ap4: 33.1 cm2 LVLs ap4: 8.2 cm ESV(MOD-sp4): 110.4 ml ESV(sp4-el): 113.4 ml EF(MOD-sp4): 31.0 % EF(sp4-el): 31.6 % SV(MOD-sp4): 49.6 ml SV(sp4-el): 52.5 ml LA A4 area: 16.9 cm2 SI(MOD-sp4): 23.0 ml/m2 LA dimension(2D): 2.7 cm RA A4 area: 15.0 cm2 TAPSE: 2.2 cm Time Measurements MV dec time: 0.18 sec Doppler Measurements & Calculations MV E max olievr: 119.2 cm/sec Lat Peak E' Oliver: 6.5 cm/sec Med Peak E' Oliver: 6.0 cm/sec MV A max oliver: 129.3 cm/sec E/E' lat: 18.3 E/E' med: 20.0 MV E/A: 0.92 MV V2 max: 146.8 cm/sec MV P1/2t max oliver: 141.5 cm/sec Ao V2 max: 239.8 cm/sec MV max P.6 mmHg MV P1/2t: 62.5 msec Ao max P.0 mmHg MV V2 mean: 98.5 cm/sec MV dec slope: 662.9 cm/sec2 Ao V2 mean: 172.4 cm/sec MV mean P.3 mmHg MVA(P1/2t): 3.5 cm2 Ao mean P.1 mmHg MV V2 VTI: 34.8 cm Ao V2 VTI: 52.0 cm MVA(VTI): 2.0 cm2 AV (velocity ratio): 0.41 MOLINA(I,D): 1.4 cm2 MOLINA(V,D): 1.3 cm2 LV V1 max: 96.3 cm/sec SV(LVOT): 70.5 ml PA V2 max: 97.5 cm/sec LV V1 max P.7 mmHg LV V1 mean P.0 mmHg LV V1 mean: 66.9 cm/sec LV V1 VTI: 21.4 cm TR max oliver: 325.3 cm/sec TR max P.3 mmHg ECHO/Echo Complete W/ Contrast Interpretation Summary The estimated ejection fraction is 25 %. There is evidence of diastolic dysfunction. There is severe global hypokinesis of the left ventricle. Trivial mitral valve insufficiency. Ordering Physician: Jordan Ortiz Referring Physician: TIO BAEZ Performed By: Roberta Thorne RDCS
--- NOTE | 2024-06-22 07:42 | PN.HOSP_ITS ---
Reason for Visit Reason for Visit: Diagnoses Sepsis, unspecified organism (06/20/24) Acute and chronic respiratory failure with hypoxia (06/20/24) Subjective Subjective Patient blood cultures came back positive for MRSA repeat cultures ordered in addition did obtain ID consultation as well as transthoracic echo Objective Data Objective Data Vital Signs: Vital Signs Temp Pulse Resp BP Pulse Ox O2 Del Method O2 Flow Rate 96.1 F L 67 18 103/53 L 99 Nasal Cannula 4 06/22/24 02:45 06/22/24 02:45 06/22/24 02:45 06/22/24 02:45 06/22/24 02:45 06/22/24 02:45 06/22/24 02:45 FiO2 30 06/21/24 23:08 Oxygen Flow Rate (L/min) 4 Oxygen Delivery Method Nasal Cannula Weight: 96 kg Body Mass Index (BMI) 29.5 Intake & Output: Intake and Output for Last 24 Hours 06/20/24 06/21/24 06/22/24 23:59 23:59 23:59 Intake Total 2907.73 / 2910.08 1317.55 / 1317.55 555 / 555 Output Total 650 / 650 625 / 625 Balance 2257.73 / 2260.08 692.55 / 692.55 555 / 555 Lab / Micro Data 06/22/24 07:32 06/21/24 05:40 Labs: Laboratory Results - last 24 hr 06/20/24 21:19: POC Glucose 116 H 06/21/24 08:03: POC Glucose 196 H 06/21/24 12:12: POC Glucose 268 H 06/21/24 16:16: POC Glucose 301 H 06/21/24 21:43: POC Glucose 330 H 06/22/24 06:44: POC Glucose 307 H Micro: Microbiology 06/20/24 16:30 Blood Culture (Wb) - Anticubital Right Blood Culture - Preliminary 06/21/24 10:00 Sputum, Expectorated/Coughed Gram Stain - Final 06/20/24 16:30 Blood Culture (Wb) - Venous Bacteria Detection (PCR) - Final Meth. resistant Staph. aureus 06/20/24 16:30 Blood Culture (Wb) - Venous Blood Culture - Preliminary 06/20/24 20:05 Mucosa - Nasopharyngeal Respiratory Panel (PCR) - Final 06/20/24 19:55 Urine Catheter - Ball Legionella Antigen - Final 06/20/24 19:55 Urine Catheter - Ball Streptococcus pneumoniae Antigen (M - Final 06/20/24 16:32 Mucosa - Nose SARS-CoV-2, Influenza & RSV (PCR) - Final Radiography Diagnostic Testing: Radiology Impression Venous Doppler Study 06/20/24 18:53 Interpretation Summary Deep veins of the right lower extremity are patent and compressible segmentally. There is no evidence of right lower extremity deep vein thrombosis. The right great saphenous vein appears patent and compressible segmentally. Ordering Physician: Mable Pritchard Referring Physician: Donna Will M.D. Performed By: Brittani العلي RVT Chest X-Ray 06/21/24 10:05 IMPRESSION: There is mild cardiomegaly. Central vascularity appears increased. There is subsegmental consolidation in the retrocardiac region, new. Reading Location: [facility] Physical Exam Narrative GENERAL: cooperative HEENT: Atraumatic; normocephalic EYES; Anicteric, Normal Conjunctiva NECK; supple, normal thyroid, RESPIRATORY: Diminished to auscultation CARDIOVASCULAR: Regular S1 S2, GI: soft, normoactive bowel sounds, : No Renal angle tenderness; EXTREMITIES: Bilateral stasis dermatitis with some edema MUSCULOSKELETAL: no muscle wasting NEURO: Awake; no lateralizing signs. SKIN: No Rash PSYCH; Flat affect Assessment & Plan Assessment/Plan (1) Acute and chronic respiratory failure with hypoxia: PLAN: Plan Patient is a 73-year-old gentleman with multiple comorbidities including ischemic cardiomyopathy, COPD/home oxygen who presented to the emergency department with progressive shortness of breath as well as cough productive of yellowish sputum. An assessment of sepsis secondary to pneumonia made on admission admitted to the intensive care unit for subsequent management 1. Septic shock ? Secondary to pneumonia. Treatment initiated per protocol with fluid resuscitation, antibiotics per protocol and subsequent response to therapy monitored with serial lactic acid levels. Patient had to be placed on pressor support with Levophed which has since been weaned off. ? 06/22/2024; patient sputum cultures as well as blood cultures came back positive for Staph aureus. Consult placed to ID. Patient already on appropriate antibiotic therapy ith Zosyn and azithromycin as well as vancomycin. Patient WBC count still remains elevated 2. MRSA bacteremia ?Patient blood cultures came back positive for MRSA repeat cultures ordered in addition did obtain ID consultation as well as transthoracic echo 3. Acute on chronic hypoxic respiratory failure ? Secondary to pneumonia. Patient is on baseline oxygen 3 L at rest patient was found to be saturating 78% on 6 L. Placed on high flow oxygen 4. 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 Echo from 09/04/2023 demonstrated EF of 25% with severe global hypokinesis. Patient remains compensated at this point 5.? Chronic hypoxic respiratory failure ? Secondary to suspected pulmonary fibrosis COPD and CHF. Patient is on supplemental oxygen at home 6.? 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 Previously treated with apixaban.? Patient did not tolerate apixaban as a result of GI bleed he underwent IVC filter placement on 05/02/2021 7.? Anemia ? Secondary to chronic disorder monitoring H&H and transfuse if patient becomes symptomatic or hemoglobin falls below 7 8.? Non Hodgkin's lymphoma ? in remission 9.? Coronary artery disease ?With previous PCI of an LAD RCA and mid circumflex lesions 10. BPH with lower urinary obstructive symptoms - Patient treated with tamsulosin 11. GERD The patient is on PPI 12. Chronic kidney disease stage IIIb ? Patient kidney function at baseline 13.? Dyslipidemia -Patient is on statin therapy, continued at home dose 14..? Hypertension - Blood pressure controlled, home medications continued with dose adjustment as needed 15. Depression ? Patient is on Remeron and escitalopram plan is to resume following med rec 16. Rheumatoid arthritis Patient previously treated with rituximab as outpatient 17 . Diabetes mellitus type II Placed on long acting insulin, Accu-Cheks a.c. and at bedtime and covered with sliding scale insulin 17. DVT prophylaxis ? Bilateral SCDs Charges/Coding Visit Charges Inpatient E&M: 09822 Subs Hosp L3
[2024-06-22 07:51] LABS: Absolute Lymphocyte Count 0.48 X10^3/uL (0.83-4.51); Absolute Neutrophil Count 13.3 X10^3/uL (2.0-7.7); Basophil# 0.02 X10^3/uL; Basophil% 0.1 % (0-1); Differential Indicated SCAN CRITERIA MET; Hematocrit 26.3 % (40-54); Hemoglobin 8.3 g/dL (13.0-16.5); Lymphocyte # 0.48 X10^3/ul (0.83-4.51); Lymphocyte % 3.3 % (19-41); Mean Corp Hgb Conc 31.6 g/dL (32-36); Mean Corpuscular Hgb 29.2 pg (27.0-32.0); Mean Corpuscular Volume 92.6 fL (80-94); Mean Platelet Vol. 10.4 fl (6.2-12.0); Monocyte# 0.48 X10^3/uL; Monocyte% 3.3 % (0-10); NRBC Flagged by Analyzer 0.3 % (0-5); Neutrophil # 13.32 X10^3/uL (2.7-7.7); Neutrophil % 92.1 % (47-70); POSITIVE DIFFERENTIAL YES; POSITIVE MORPHOLOGY YES; Platelet Count 184 K/mm3 (150-450); RBC Distribution Width CV 21.1 % (11.6-14.6); RBC Distribution Width SD 70.9 fl (35.1-43.9); Red Blood Count 2.84 M/mm3 (4.6-6.2); White Blood Count 14.5 K/mm3 (4.4-11.0)
[2024-06-22 08:14] LABS: Anisocytosis 2+
[2024-06-22] MEDS: Pantoprazole Sodium 40 MG Tablet PO ×2 (08:38→21:53)
[2024-06-22] MEDS: Finasteride 5 MG Tablet PO (08:38)
[2024-06-22 09:02] LABS: Anion Gap 12 (5-15); BUN 44 mg/dL (4-19); BUN/Creat Ratio 27.4 RATIO (10-20); Calcium,Total 8.7 mg/dL (7.6-11.0); Carbon Dioxide 25.3 mmol/L (21.0-32.0); Chloride 104 mmol/L (98-108); EST Glomerular Filtration Rate 45 (>60); Estimated Creatinine Clearance 47.88 ml/min (50-250); Glucose 319 mg/dL (70-99); Magnesium 2.1 mg/dL (1.5-2.2); Potassium 4.4 mmol/L (3.3-5.1); Sodium Level 141 mmol/L (133-145)
[2024-06-22 09:35] LABS: Vancomycin, Trough Level 21.3 ug/mL (5.0-15.0)
--- NOTE | 2024-06-22 09:49 | PCM.CONS.GEN ---
Assessment & Plan Assessment/Plan (1) Acute alteration in mental status: (2) Sepsis: PLAN: sepsis due to MRSA bacteremia, suspect pulm source. Will check repeat bcx and TTE. Picc placed while bacteremia, will need to remove if bcx do not clear. Cont vanc/zosyn for now. Will follow, thank you (3) MRSA bacteremia: HPI Consult Data Date of Consult: 06/22/24 HPI Narrative Reason for Consultation: bacteremia HPI Narrative: SAL ALONZO, is a 73 M with CKD, DM, COPD on home O2, recent admit with MRSA pneumonia, presented 06/20 with 2-3 days progressive weakness, increased cough with white sputum, and acute onset confusion. Developed fever, came to ED, found to be hypoxic. Admitted on vanc/zosyn. Had recent fall and hurt his chest. Picc placed. Seen by pulm. Feeling a little better. Full ROS performed and neg except as noted above. PFSH Medical History MRSA (methicillin resistant staph aureus) culture positive Ischemic cardiomyopathy COVID-19 Lethargic COPD with acute exacerbation Elevated troponin I level LUIS (acute kidney injury) Hypoxemia Chronic kidney disease (CKD), stage III (moderate) Acute hypoxic on chronic hypercapnic respiratory failure FTT (failure to thrive) in adult Former smoker On home oxygen therapy Bleeding tendency Ulcer High cholesterol History of stress test HTN (hypertension) Tobacco abuse History of pulmonary embolus (PE) (04/30/21) Essential hypertension Type 2 diabetes mellitus DVT (deep venous thrombosis) (05/01/21) Rhinovirus Acute respiratory failure with hypoxia Physical debility COVID-19 in immunocompromised patient Nicotine dependence, cigarettes, uncomplicated Diabetes Arthritis Cancer COPD (chronic obstructive pulmonary disease) History of basal cell carcinoma Atherosclerosis of coronary artery of [place] heart without angina pectoris Pneumonia Non-Hodgkin lymphoma History of pilonidal cyst Allergic rhinitis 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 complications Gastritis Colon polyp Obesity Asthma Chronic bronchitis Positive colorectal cancer screening using Cologuard test RA (rheumatoid arthritis) Home Medications ?Medication ?Instructions ?Recorded ?Last Taken ?Type finasteride 5 mg tablet 5 mg PO DAILY prostate 08/14/22 03/16/23 History tamsulosin 0.4 mg capsule 0.4 mg PO QHS prostate 08/14/22 03/15/23 History multivitamin 1 tab PO DAILY vitamin 09/13/22 03/16/23 History menthol 0.44 %-zinc oxide 20.6 % 1 applic topical 4-6XD PRN skin 03/07/23 Unknown Rx topical ointment (Calmoseptine) irritation #113 grams carvedilol 3.125 mg tablet 3.125 mg PO BID BP #60 tabs 06/05/23 Unknown Rx atorvastatin 40 mg tablet 20 mg (1/2 x 40 mg) PO QHS 09/18/23 Unknown Rx cholesterol #90 tabs budesonide 1 mg/2 mL suspension 1 mg (2 mL) inhalation Q12H 09/19/23 Unknown Rx for nebulization wheezing/SOB #120 mL ipratropium 0.5 mg-albuterol 3 mg 3 ml inhalation Q4H PRN PRN SOB 09/19/23 Unknown Rx (2.5 mg base)/3 mL nebulization &/OR WHEEZING #270 mL soln escitalopram oxalate 10 mg tablet 10 mg PO DAILY mood 90 days #90 10/29/23 Unknown Rx tabs mirtazapine 15 mg tablet (Remeron) 7.5 mg (1/2 x 15 mg) PO QHS sleep 10/29/23 Unknown Rx #90 tabs insulin aspart U-100 100 unit/mL See Protocol subcut ACHS high 11/12/23 Unknown Rx (3 mL) subcutaneous pen blood glucose 1 month #15 mL needle (disp) 32 gauge 32 gauge x #100 ea 11/12/23 Unknown Rx 5/16 (Easy Touch Hypodermic Needle) pen needle, diabetic 32 gauge x #100 ea 12/03/23 Unknown Rx /32 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 meter,continuous #1 ea 12/24/23 Unknown Rx (FreeStyle Basilio 3 [place]) 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 sensor (FreeStyle #1 ea 12/24/23 Unknown Rx Basilio 3 Sensor device) furosemide 40 mg tablet (Lasix) 20 mg (1/2 x 40 mg) PO DAILY 03/08/24 Unknown Rx diuretic #60 tabs insulin glargine-yfgn 100 unit/mL 15 unit (0.15 mL) subcut DAILY 03/08/24 Unknown Rx (3 mL) subcutaneous pen high blood glucose #15 mL empagliflozin 10 mg tablet 10 mg PO QDAY diabetes 03/16/24 Unknown History (Jardiance) ferrous sulfate 325 mg (65 mg 325 mg PO QODAY Supplement 04/05/24 04/06/24 History iron) tablet (FeroSul) Allergy/AdvReac Type Severity Reaction Status Date / Time No Known Allergies Allergy Verified 05/20/24 12:44 Family History Father Arthritis Bleeding disorder Hypertension Kidney disease Cancer Skin Anemia blood clots Emphysema lung Mother Colon cancer Cancer Lung Cancer Diabetes Brother Thyroid disorder Surgical History History of embolic filter insertion History of heart artery stent Status post cardiac surgery H/O cardiac catheterization Presence of IVC filter (04/2021) History of coronary artery stent placement (10/22/13) History of thymectomy Hx of lymph node excision History of excision of pilonidal cyst Social History household members: spouse Smoking Status: Current some day smoker tobacco type: cigarettes Tobacco: How many years used: 55 second hand exposure: Yes alcohol intake: current alcohol intake frequency: holidays/special occasions only substance use type: does not use caffeine: Yes Type: coffee Number of servings: 3 what type of physical activity do you participate in: none frequency: does not exercise seatbelt use: always Physical Exam Const alert and no apparent distress General Appearance: cooperative HEENT normocephalic and head/scalp atraumatic Eyes PERRL and EOMs intact bilaterally Neck supple and No nodes Resp Auscultation: rhonchi and diminished lung sounds Cardio regular rate and regular rhythm GI soft to palpation, non-tender and non-distended Extremity General Extremity: edema Skin no rashes or lesions noted Neuro CN's II-XII intact bilaterally Lab / Micro Data Attestation: I reviewed the patient's lab results. 06/22/24 07:32 06/22/24 07:32 Labs: Laboratory Results - last 24 hr 06/20/24 21:19: POC Glucose 116 H 06/21/24 12:12: POC Glucose 268 H 06/21/24 16:16: POC Glucose 301 H 06/21/24 21:43: POC Glucose 330 H 06/22/24 06:44: POC Glucose 307 H 06/22/24 07:32: WBC 14.5 H, RBC 2.84 L, Hgb 8.3 L, Hct 26.3 L, MCV 92.6, MCH 29.2, MCHC 31.6 L, RDW Std Deviation 70.9 H, RDW Coeff of Rafael 21.1 H, Plt Count 184, MPV 10.4, Immature Gran % (Auto) 1.200 H, Neut % (Auto) 92.1 H, Lymph % (Auto) 3.3 L, [place] % (Auto) 3.3, Eos % (Auto) 0.0, Baso % (Auto) 0.1, Absolute Neuts (auto) 13.3 H, Absolute Lymphs (auto) 0.48 L, Nucleated RBC % 0.3, Differential Comment COMMENT, Anisocytosis 2+, Sodium 141, Potassium 4.4, Chloride 104, Carbon Dioxide 25.3, Anion Gap 12, BUN 44 H, Creatinine 1.60 H, Estim Creat Clear Calc 47.88 L, Est GFR (MDRD) Non-Af 45 L, BUN/Creatinine Ratio 27.4 H, Glucose 319 H, Calcium 8.7, Phosphorus 5.0 H, Magnesium 2.1, Vancomycin Trough 21.3 H Micro: Microbiology 06/21/24 10:00 Sputum, Expectorated/Coughed Gram Stain - Final 06/21/24 10:00 Sputum, Expectorated/Coughed Respiratory Culture - Preliminary Staphylococcus aureus 06/20/24 16:30 Blood Culture (Wb) - Anticubital Right Blood Culture - Preliminary Staphylococcus aureus 06/20/24 16:30 Blood Culture (Wb) - Venous Bacteria Detection (PCR) - Final Meth. resistant Staph. aureus 06/20/24 16:30 Blood Culture (Wb) - Venous Blood Culture - Preliminary Staphylococcus aureus Imaging Radiology Impression Venous Doppler Study 06/20/24 18:53 Interpretation Summary Deep veins of the right lower extremity are patent and compressible segmentally. There is no evidence of right lower extremity deep vein thrombosis. The right great saphenous vein appears patent and compressible segmentally. Ordering Physician: Mable Pritchard Referring Physician: Donna Will M.D. Performed By: Brittani العلي RVT Chest X-Ray 06/21/24 10:05 IMPRESSION: There is mild cardiomegaly. Central vascularity appears increased. There is subsegmental consolidation in the retrocardiac region, new. Reading [facility]
--- NOTE | 2024-06-22 10:09 | PCM.RX.CS ---
Consult Antibiotic Management Pharmacy has been consulted to manage selected antibiotic: Vancomycin Type of Intervention Type of Consult: Follow-up Suspected Infection Suspected Infection: Bacteremia Labs Labs: Sodium 141 mmol/L (133-145) 06/22/24 07:32 Potassium 4.4 mmol/L (3.3-5.1) 06/22/24 07:32 Chloride 104 mmol/L (98-108) 06/22/24 07:32 Carbon Dioxide 25.3 mmol/L (21.0-32.0) 06/22/24 07:32 Anion Gap 12 (5-15) 06/22/24 07:32 BUN 44 mg/dL (4-19) H 06/22/24 07:32 Creatinine 1.60 mg/dL (0.70-1.20) H 06/22/24 07:32 Est GFR (MDRD) Non-Af 45 (>60) L 06/22/24 07:32 BUN/Creatinine Ratio 27.4 RATIO (10-20) H 06/22/24 07:32 Glucose 319 mg/dL (70-99) H 06/22/24 07:32 Vancomycin Trough 21.3 ug/mL (5.0-15.0) H 06/22/24 07:32 Microbiology Microbiology: Microbiology 06/21/24 10:00 Sputum, Expectorated/Coughed Gram Stain - Final 06/21/24 10:00 Sputum, Expectorated/Coughed Respiratory Culture - Preliminary Staphylococcus aureus 06/20/24 16:30 Blood Culture (Wb) - Anticubital Right Blood Culture - Preliminary Staphylococcus aureus 06/20/24 16:30 Blood Culture (Wb) - Venous Bacteria Detection (PCR) - Final Meth. resistant Staph. aureus 06/20/24 16:30 Blood Culture (Wb) - Venous Blood Culture - Preliminary Staphylococcus aureus 06/20/24 20:05 Mucosa - Nasopharyngeal Respiratory Panel (PCR) - Final 06/20/24 19:55 Urine Catheter - Ball Legionella Antigen - Final 06/20/24 19:55 Urine Catheter - Ball Streptococcus pneumoniae Antigen (M - Final 06/20/24 16:32 Mucosa - Nose SARS-CoV-2, Influenza & RSV (PCR) - Final Pharmacy Plan for Drug Dosing Pharmacy Plan for Drug Dosing: VANCOMYCIN LEVEL RECEIVED Current Vancomycin Dose: 1000MG Q12 Number of Doses Received: 3 Vancomycin Level: 21.3 Hours Since Last Dose: 12 Renal Function: SCr 1.6 mg/dL, CrCl 47.8 mL/min Renal Function Trend: increase in SCr Lab/Micro: MRSA bacteremia Vancomycin Plan/Comments: 12 hour trough is supratherapeutic at 21.3 mg/dL (goal 15-20). Will hold further dosing and get a random level in 12 hours. Pending Level: 06/22/24 @ 1930 - random Pharmacy Service will continue to monitor and adjust dosing as required.
[2024-06-22 11:18] LABS: Bedside Glucose 329 mg/dL (74-106)
[2024-06-22] MEDS: 0.9% Saline Lock 10 ML Syringe IV (13:50)
[2024-06-22 15:46] LABS: Bedside Glucose 451 mg/dL (74-106)
[2024-06-22] MEDS: Insulin Glargine-YFGN 100 UNIT/ML Pen 15 UNIT SC (16:54)
--- NOTE | 2024-06-22 17:38 | EKG12_ITS ---
Test Reason : AF Blood Pressure : */* mmHG Vent. Rate : 123 BPM Atrial Rate : * BPM P-R Int : * ms QRS Dur : 118 ms QT Int : 340 ms P-R-T Axes : * 36 -54 degrees QTcB Int : 486 ms Atrial fibrillation with rapid ventricular response Non-specific intra-ventricular conduction delay Nonspecific ST and T wave abnormality Abnormal ECG When compared with ECG of 20-Jun-2024 16:44, MANUAL COMPARISON REQUIRED DATA IS UNCONFIRMED Confirmed by IAM TEIXEIRA, HAVEN ([id number]), associate editor APOLONIA GUERRERO ([id number]) on 06/23/2024 1:23:11 PM Referred By: RANDA Confirmed By: HAVEN VITALE MD
[2024-06-22] MEDS: dilTIAZem 25 MG/5 ML Vial 20 MG IV BOLUS (18:25)
[2024-06-22 20:26] LABS: Vancomycin, Random Level 16.3 ug/mL (0.0-15.0)
--- NOTE | 2024-06-22 20:26 | PCM.RX.CS ---
Consult Antibiotic Management Pharmacy has been consulted to manage selected antibiotic: Vancomycin Type of Intervention Type of Consult: Follow-up Suspected Infection Suspected Infection: Bacteremia Prior Doses of Antibiotics Prior Doses of Antibiotics Received/Current Regimen: the most recent dose was 1000mg q12h before it was held due to a high trough Labs Labs: Sodium 141 mmol/L (133-145) 06/22/24 07:32 Potassium 4.4 mmol/L (3.3-5.1) 06/22/24 07:32 Chloride 104 mmol/L (98-108) 06/22/24 07:32 Carbon Dioxide 25.3 mmol/L (21.0-32.0) 06/22/24 07:32 Anion Gap 12 (5-15) 06/22/24 07:32 BUN 44 mg/dL (4-19) H 06/22/24 07:32 Creatinine 1.60 mg/dL (0.70-1.20) H 06/22/24 07:32 Est GFR (MDRD) Non-Af 45 (>60) L 06/22/24 07:32 BUN/Creatinine Ratio 27.4 RATIO (10-20) H 06/22/24 07:32 Glucose 319 mg/dL (70-99) H 06/22/24 07:32 Vancomycin Trough 21.3 ug/mL (5.0-15.0) H 06/22/24 07:32 Random Vancomycin 16.3 ug/mL (0.0-15.0) H 06/22/24 19:15 Microbiology Microbiology: Microbiology 06/21/24 10:00 Sputum, Expectorated/Coughed Gram Stain - Final 06/21/24 10:00 Sputum, Expectorated/Coughed Respiratory Culture - Preliminary Staphylococcus aureus 06/20/24 16:30 Blood Culture (Wb) - Anticubital Right Blood Culture - Preliminary Staphylococcus aureus 06/20/24 16:30 Blood Culture (Wb) - Venous Bacteria Detection (PCR) - Final Meth. resistant Staph. aureus 06/20/24 16:30 Blood Culture (Wb) - Venous Blood Culture - Preliminary Staphylococcus aureus 06/20/24 20:05 Mucosa - Nasopharyngeal Respiratory Panel (PCR) - Final 06/20/24 19:55 Urine Catheter - Ball Legionella Antigen - Final 06/20/24 19:55 Urine Catheter - Ball Streptococcus pneumoniae Antigen (M - Final 06/20/24 16:32 Mucosa - Nose SARS-CoV-2, Influenza & RSV (PCR) - Final Dosing Weight Weight used for dosin kg Estimated Creatinine Clearance Estimated Creatinine Clearance: 48 ml/min Goal Trough Goal Trough: 15-20 mcg/mL Pharmacy Plan for Drug Dosing Pharmacy Plan for Drug Dosing: The vanc random level drawn at 19:15 was 15.9 (1st result from lab) and then 16.3 (2nd result from lab). In either case, it is back below 20 so will resume dosing at a new dose of 500mg q12h. Of note, the patient's SCr angela to 1.6 today from 1.38 yesterday so will dose conservatively for now. Repeat a trough before the 4th dose. Pharmacy Service will continue to monitor and adjust dosing as required. Follow-Up Labs Follow-Up Labs: Trough: Vancomycin Date/Time Labs Ordered Labs to be done on [date and time ordered]: 06/24/24 08:30
[2024-06-22] MEDS: Vancomycin IV 500 MG/100 ML BAG 100 MG IV (21:53)
[2024-06-22] MEDS: Tamsulosin HCl 0.4 MG Capsule PO (21:53)
[2024-06-22] MEDS: Atorvastatin Calcium 20 MG Tablet PO (21:54)
[2024-06-23] VITALS (10 sets, daily range): BP systolic 112–127; BP diastolic 64–76; PULSE 58–78; RESP 12–22; TEMP 36.1–36.8; O2SAT 96–100; BMI 29.5
[2024-06-23 01:37] LABS: Bedside Glucose 443 mg/dL (74-106)
--- NOTE | 2024-06-23 05:47 | PCM.PN.INT ---
Assessment & Plan Assessment/Plan (1) Sepsis: PLAN: Plan RECOMMENDATIONS: 1. Continue supplemental oxygen to maintain saturations at or above 90%. 2. Continue antimicrobials per ID recommendations. 3. Continue scheduled bronchodilators. 4. Transition from IV steroids to prednisone 40 mg daily x 5 days. 5. Continue bronchopulmonary hygiene. 6. Encourage incentive spirometer use and mobilize patient as tolerated. 7. Follow-up in the pulmonary medicine clinic in July as scheduled. Will sign off at this time. Please call with any questions. IMPRESSIONS: 1. Septic shock Resolved. Secondary to staphylococcal pneumonia with secondary hematogenous spread. Although the patient transiently required vasopressor support, he has been weaned from Levophed and remains hemodynamically stable. The patient remains on antimicrobial therapy under the discretion of infectious diseases. 2. Acute on chronic hypoxemic respiratory failure in the setting of COPD The patient has a known history of COPD, bronchiectasis and chronic hypoxemic respiratory failure with a baseline oxygen requirement of 4 to 5 L/min. He is currently maintaining appropriate oxygen saturations on his baseline requirement. In addition to the antimicrobials noted above, the patient will be continued on scheduled bronchodilators and steroids. His IV steroids, however, will be transitioned to prednisone 40 mg daily for the next 5 days. 3. History of Hodgkin's lymphoma/iron deficiency anemia/heart failure with reduced ejection fraction/coronary artery disease/hypertension/hyperlipidemia Complicates care, management, recovery and prognosis. Continue supportive measures as noted above. This note was generated with [email or web address] dictation software. It may contain incorrect words, spelling, and punctuation that were not noted in checking the note before signing. Subjective Subjective The patient was seen and examined at the bedside this morning. Events from the last 24 hours have been reviewed. The patient is currently afebrile, hemodynamically stable and maintaining appropriate oxygen saturations on 4 L/min via nasal cannula. White blood cell count is normal. Hemoglobin is dropped to 7.6 g/dL. Creatinine is stable at 1.5. Objective Data Objective Data The patient's most recent lab work, culture data and imaging studies have all been personally reviewed. Blood cultures dated June 20 were positive for MRSA. Sputum culture dated June 21 was positive for MRSA as well. Vital Signs: Vital Signs Temp Pulse Resp BP Pulse Ox O2 Del Method O2 Flow Rate 98.3 F 63 22 H 122/59 H 96 Nasal Cannula 4 06/22/24 15:23 06/23/24 00:03 06/23/24 00:03 06/22/24 15:23 06/23/24 00:03 06/23/24 03:00 06/23/24 03:00 FiO2 30 06/23/24 00:03 Oxygen Flow Rate (L/min) 4 Oxygen Delivery Method Nasal Cannula Weight: 211 lb 13.828 oz Body Mass Index (BMI) 29.5 Intake & Output: Intake and Output for Last 24 Hours 06/21/24 06/22/24 06/23/24 23:59 23:59 23:59 Intake Total 1317.55 / 1317.55 895 / 895 100 / 100 Output Total 625 / 625 300 / 300 Balance 692.55 / 692.55 595 / 595 100 / 100 Lab / Micro Data Attestation: I reviewed the patient's lab results. 06/23/24 05:43 06/23/24 05:43 Labs: Laboratory Results - last 24 hr 06/22/24 06:44: POC Glucose 307 H 06/22/24 07:32: WBC 14.5 H, RBC 2.84 L, Hgb 8.3 L, Hct 26.3 L, MCV 92.6, MCH 29.2, MCHC 31.6 L, RDW Std Deviation 70.9 H, RDW Coeff of Rafael 21.1 H, Plt Count 184, MPV 10.4, Immature Gran % (Auto) 1.200 H, Neut % (Auto) 92.1 H, Lymph % (Auto) 3.3 L, [place] % (Auto) 3.3, Eos % (Auto) 0.0, Baso % (Auto) 0.1, Absolute Neuts (auto) 13.3 H, Absolute Lymphs (auto) 0.48 L, Nucleated RBC % 0.3, Differential Comment COMMENT, Anisocytosis 2+, Sodium 141, Potassium 4.4, Chloride 104, Carbon Dioxide 25.3, Anion Gap 12, BUN 44 H, Creatinine 1.60 H, Estim Creat Clear Calc 47.88 L, Est GFR (MDRD) Non-Af 45 L, BUN/Creatinine Ratio 27.4 H, Glucose 319 H, Calcium 8.7, Phosphorus 5.0 H, Magnesium 2.1, Vancomycin Trough 21.3 H 06/22/24 11:00: POC Glucose 329 H 06/22/24 15:25: POC Glucose 451 H* 06/22/24 19:15: Random Vancomycin 16.3 H 06/22/24 21:56: POC Glucose 443 H Micro: Microbiology 06/21/24 10:00 Sputum, Expectorated/Coughed Gram Stain - Final 06/21/24 10:00 Sputum, Expectorated/Coughed Respiratory Culture - Preliminary Staphylococcus aureus 06/20/24 16:30 Blood Culture (Wb) - Anticubital Right Blood Culture - Preliminary Staphylococcus aureus 06/20/24 16:30 Blood Culture (Wb) - Venous Bacteria Detection (PCR) - Final Meth. resistant Staph. aureus 06/20/24 16:30 Blood Culture (Wb) - Venous Blood Culture - Preliminary Staphylococcus aureus 06/20/24 20:05 Mucosa - Nasopharyngeal Respiratory Panel (PCR) - Final 06/20/24 19:55 Urine Catheter - Ball Legionella Antigen - Final 06/20/24 19:55 Urine Catheter - Ball Streptococcus pneumoniae Antigen (M - Final 06/20/24 16:32 Mucosa - Nose SARS-CoV-2, Influenza & RSV (PCR) - Final Radiography Diagnostic Testing: Radiology Impression Echocardiogram 06/22/24 07:41 Interpretation Summary The estimated ejection fraction is 25 %. There is evidence of diastolic dysfunction. There is severe global hypokinesis of the left ventricle. Trivial mitral valve insufficiency. Ordering Physician: Jordan Ortiz Referring Physician: TIO BAEZ Performed By: Roberta Thorne RDCS Physical Exam Const alert and no apparent distress General Appearance: cooperative HEENT normocephalic and head/scalp atraumatic Eyes PERRL, EOMs intact bilaterally and conjunctivae normal Neck supple General: trachea midline Chest inspection of chest normal Resp normal respiratory effort Auscultation: diminished lung sounds Cardio regular rate and regular rhythm GI normal to inspection, nondistended, normoactive bowel sounds Extremity no clubbing, cyanosis or edema Skin no rashes or lesions noted Neuro CN's II-XII intact bilaterally, moves all extremities and no focal motor deficits Psych cooperative and affect normal Charges/Coding Visit Charges Inpatient E&M: 38596 Subs Hosp L2
[2024-06-23 06:25] LABS: Absolute Neutrophil Count 8.4 X10^3/uL (2.0-7.7); Anion Gap 10 (5-15); BUN 51 mg/dL (4-19); BUN/Creat Ratio 33.5 RATIO (10-20); Basophil# 0.01 X10^3/uL; Basophil% 0.1 % (0-1); Calcium,Total 8.7 mg/dL (7.6-11.0); Carbon Dioxide 25.6 mmol/L (21.0-32.0); Chloride 105 mmol/L (98-108); Creatinine, Serum 1.53 mg/dL (0.70-1.20); EST Glomerular Filtration Rate 47 (>60); Glucose 373 mg/dL (70-99); Hematocrit 24.1 % (40-54); Hemoglobin 7.6 g/dL (13.0-16.5); Lymphocyte % 4.3 % (19-41); Mean Corp Hgb Conc 31.5 g/dL (32-36); Mean Corpuscular Hgb 29.1 pg (27.0-32.0); Mean Corpuscular Volume 92.3 fL (80-94); Mean Platelet Vol. 12.4 fl (6.2-12.0); Monocyte# 0.36 X10^3/uL; Monocyte% 3.9 % (0-10); NRBC Flagged by Analyzer 0.3 % (0-5); Neutrophil # 8.35 X10^3/uL (2.7-7.7); Neutrophil % 90.5 % (47-70); POSITIVE DIFFERENTIAL YES; POSITIVE MORPHOLOGY YES; Platelet Count 194 K/mm3 (150-450); Potassium 4.6 mmol/L (3.3-5.1); RBC Distribution Width CV 20.8 % (11.6-14.6); RBC Distribution Width SD 70.2 fl (35.1-43.9); Red Blood Count 2.61 M/mm3 (4.6-6.2); Sodium Level 141 mmol/L (133-145); White Blood Count 9.2 K/mm3 (4.4-11.0)
[2024-06-23] MEDS: Methylprednisolone Sod Succ 40 MG/ML VIAL IV (06:33)
[2024-06-23] MEDS: Piperacil/Tazobactam 3.375 GM in 0.9% Normal Saline (50mL MB+) 50 ML IV (06:34)
[2024-06-23 06:39] LABS: Differential Indicated SCAN CRITERIA MET
[2024-06-23] MEDS: Insulin Lispro 100 UNIT/ML INSULN.PEN SC ×3 (06:49→16:31)
[2024-06-23 07:08] LABS: Anisocytosis 2+; Differential Comment SCANNED; Macrocytosis 1+; Microcytosis 1+
[2024-06-23] MEDS: Ipratropium/Albuterol Sulfate 3 ML AMPUL.NEB INHALATION ×3 (07:08→19:25)
[2024-06-23 07:10] LABS: Bedside Glucose 330 mg/dL (74-106)
--- NOTE | 2024-06-23 07:33 | PN.HOSP_ITS ---
Reason for Visit Reason for Visit: Diagnoses Sepsis, unspecified organism (06/20/24) Methicillin resistant Staphylococcus aureus infection as the cause of diseases classified elsewhere (06/20/24) Acute and chronic respiratory failure with hypoxia (06/20/24) Altered mental status, unspecified (06/20/24) Bacteremia (06/20/24) Subjective Subjective Patient seen, blood glucose was elevated the day prior adjustment made patient insulin regimen. Repeat cultures sent on 06/22/2024 results pending. Transthoracic echo demonstrated EF of 25% but no evidence of vegetations. ID was consulted the day prior patient seen by Dr. Camara his noted recommendations reviewed Objective Data Objective Data Vital Signs: Vital Signs Temp Pulse Resp BP Pulse Ox O2 Del Method O2 Flow Rate 98.3 F 63 22 H 122/59 H 96 Nasal Cannula 4 06/22/24 15:23 06/23/24 00:03 06/23/24 00:03 06/22/24 15:23 06/23/24 00:03 06/23/24 03:00 06/23/24 03:00 FiO2 30 06/23/24 00:03 Oxygen Flow Rate (L/min) 4 Oxygen Delivery Method Nasal Cannula Weight: 96.1 kg Body Mass Index (BMI) 29.5 Intake & Output: Intake and Output for Last 24 Hours 06/21/24 06/22/24 06/23/24 23:59 23:59 23:59 Intake Total 1317.55 / 1317.55 895 / 895 150 / 150 Output Total 625 / 625 300 / 300 Balance 692.55 / 692.55 595 / 595 150 / 150 Lab / Micro Data 06/23/24 05:43 06/23/24 05:43 Labs: Laboratory Results - last 24 hr 06/22/24 07:32: WBC 14.5 H, RBC 2.84 L, Hgb 8.3 L, Hct 26.3 L, MCV 92.6, MCH 29.2, MCHC 31.6 L, RDW Std Deviation 70.9 H, RDW Coeff of Rafael 21.1 H, Plt Count 184, MPV 10.4, Immature Gran % (Auto) 1.200 H, Neut % (Auto) 92.1 H, Lymph % (Auto) 3.3 L, [place] % (Auto) 3.3, Eos % (Auto) 0.0, Baso % (Auto) 0.1, Absolute Neuts (auto) 13.3 H, Absolute Lymphs (auto) 0.48 L, Nucleated RBC % 0.3, Differential Comment COMMENT, Anisocytosis 2+, Sodium 141, Potassium 4.4, Chloride 104, Carbon Dioxide 25.3, Anion Gap 12, BUN 44 H, Creatinine 1.60 H, E stim Creat Clear Calc 47.88 L, Est GFR (MDRD) Non-Af 45 L, BUN/Creatinine Ratio 27.4 H, Glucose 319 H, Calcium 8.7, Phosphorus 5.0 H, Magnesium 2.1, Vancomycin Trough 21.3 H 06/22/24 11:00: POC Glucose 329 H 06/22/24 15:25: POC Glucose 451 H* 06/22/24 19:15: Random Vancomycin 16.3 H 06/22/24 21:56: POC Glucose 443 H 06/23/24 05:43: WBC 9.2, RBC 2.61 L, Hgb 7.6 L, Hct 24.1 L, MCV 92.3, MCH 29.1, MCHC 31.5 L, RDW Std Deviation 70.2 H, RDW Coeff of Rafael 20.8 H, Plt Count 194, M PV 12.4 H, Immature Gran % (Auto) 1.200 H, Neut % (Auto) 90.5 H, Lymph % (Auto) 4.3 L, [place] % (Auto) 3.9, Eos % (Auto) 0.0, Baso % (Auto) 0.1, Absolute Neuts (auto) 8.4 H, Absolute Lymphs (auto) 0.40 L, Nucleated RBC % 0.3, Differential Comment SCANNED, Anisocytosis 2+, Microcytosis 1+, Macrocytosis 1+, Sodium 141, Potassium 4.6, Chloride 105, Carbon Dioxide 25.6, Anion Gap 10, BUN 51 H, C reatinine 1.53 H, Estim Creat Clear Calc 50.10, Est GFR (MDRD) Non-Af 47 L, B UN/Creatinine Ratio 33.5 H, Glucose 373 H, Calcium 8.7 06/23/24 06:48: POC Glucose 330 H Micro: Microbiology 06/21/24 10:00 Sputum, Expectorated/Coughed Gram Stain - Final 06/21/24 10:00 Sputum, Expectorated/Coughed Respiratory Culture - Preliminary Staphylococcus aureus 06/20/24 16:30 Blood Culture (Wb) - Anticubital Right Blood Culture - Preliminary Staphylococcus aureus 06/20/24 16:30 Blood Culture (Wb) - Venous Bacteria Detection (PCR) - Final Meth. resistant Staph. aureus 06/20/24 16:30 Blood Culture (Wb) - Venous Blood Culture - Preliminary Staphylococcus aureus 06/20/24 20:05 Mucosa - Nasopharyngeal Respiratory Panel (PCR) - Final 06/20/24 19:55 Urine Catheter - Ball Legionella Antigen - Final 06/20/24 19:55 Urine Catheter - Ball Streptococcus pneumoniae Antigen (M - Final 06/20/24 16:32 Mucosa - Nose SARS-CoV-2, Influenza & RSV (PCR) - Final Radiography Diagnostic Testing: Radiology Impression Echocardiogram 06/22/24 07:41 Interpretation Summary The estimated ejection fraction is 25 %. There is evidence of diastolic dysfunction. There is severe global hypokinesis of the left ventricle. Trivial mitral valve insufficiency. Ordering Physician: Jordan Ortiz Referring Physician: TIO BAEZ Performed By: Roberta Thorne RDCS Physical Exam Narrative GENERAL: cooperative HEENT: Atraumatic; normocephalic EYES; Anicteric, Normal Conjunctiva NECK; supple, normal thyroid, RESPIRATORY: Diminished to auscultation CARDIOVASCULAR: Regular S1 S2, GI: soft, normoactive bowel sounds, : No Renal angle tenderness; EXTREMITIES: Bilateral stasis dermatitis with some edema MUSCULOSKELETAL: no muscle wasting NEURO: Awake; no lateralizing signs. SKIN: No Rash PSYCH; Flat affect Assessment & Plan Assessment/Plan (1) Acute and chronic respiratory failure with hypoxia: PLAN: Plan Patient is a 73-year-old gentleman with multiple comorbidities including ischemic cardiomyopathy, COPD/home oxygen who presented to the emergency department with progressive shortness of breath as well as cough productive of yellowish sputum. An assessment of sepsis secondary to pneumonia made on admission admitted to the intensive care unit for subsequent management 1. Septic shock ? Secondary to pneumonia. Treatment initiated per protocol with fluid resuscitation, antibiotics per protocol and subsequent response to therapy monitored with serial lactic acid levels. Patient had to be placed on pressor support with Levophed which has since been weaned off. ? 06/22/2024; patient sputum cultures as well as blood cultures came back positive for Staph aureus. Consult placed to ID. Patient already on appropriate antibiotic therapy ith Zosyn and azithromycin as well as vancomycin. Patient WBC count still remains elevated 2. MRSA bacteremia ?Patient blood cultures came back positive for MRSA repeat cultures ordered in addition did obtain ID consultation as well as transthoracic echo ? 06/23/2024;Repeat cultures sent on 06/22/2024 results pending. Transthoracic echo demonstrated EF of 25% but no evidence of vegetations. ID was consulted the day prior patient seen by Dr. Camara his noted recommendations reviewed 3. Acute on chronic hypoxic respiratory failure ? Secondary to pneumonia. Patient is on baseline oxygen 3 L at rest patient was found to be saturating 78% on 6 L. Placed on high flow oxygen 4. 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 Echo from 09/04/2023 demonstrated EF of 25% with severe global hypokinesis. Patient remains compensated at this point 5.? Chronic hypoxic respiratory failure ? Secondary to suspected pulmonary fibrosis COPD and CHF. Patient is on supplemental oxygen at home 6.? 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 Previously treated with apixaban.? Patient did not tolerate apixaban as a result of GI bleed he underwent IVC filter placement on 05/02/2021 7.? Anemia ? Secondary to chronic disorder monitoring H&H and transfuse if patient becomes symptomatic or hemoglobin falls below 7 8.? Non Hodgkin's lymphoma ? in remission 9.? Coronary artery disease ?With previous PCI of an LAD RCA and mid circumflex lesions 10. BPH with lower urinary obstructive symptoms - Patient treated with tamsulosin 11. GERD The patient is on PPI 12. Chronic kidney disease stage IIIb ? Patient kidney function at baseline 13.? Dyslipidemia -Patient is on statin therapy, continued at home dose 14..? Hypertension - Blood pressure controlled, home medications continued with dose adjustment as needed 15. Depression ? Patient is on Remeron and escitalopram plan is to resume following med rec 16. Rheumatoid arthritis Patient previously treated with rituximab as outpatient 17 . Diabetes mellitus type II Placed on long acting insulin, Accu-Cheks a.c. and at bedtime and covered with sliding scale insulin ? 06/23/2024; adjusted patient insulin regimen given elevated blood glucose level 17. DVT prophylaxis ? Bilateral SCDs Charges/Coding Visit Charges Inpatient E&M: 21107 Subs Hosp L2
[2024-06-23] MEDS: Pantoprazole Sodium 40 MG Tablet PO ×2 (08:38→21:16)
[2024-06-23] MEDS: Finasteride 5 MG Tablet PO (08:38)
[2024-06-23] MEDS: guaiFENesin 1,200 MG Tablet 1200 MG PO (08:39)
[2024-06-23] MEDS: Escitalopram Oxalate 10 MG Tablet PO (08:41)
[2024-06-23] MEDS: Carvedilol 3.125 MG TABLET PO ×2 (08:41→16:32)
[2024-06-23] MEDS: Ferrous Sulfate 325 MG Tablet PO (08:41)
[2024-06-23] MEDS: Furosemide 20 MG Tablet PO (08:42)
[2024-06-23] MEDS: Insulin Glargine-YFGN 100 UNIT/ML Pen 15 UNIT SC (08:48)
[2024-06-23] MEDS: Vancomycin IV 500 MG/100 ML BAG 100 MG IV ×2 (09:23→21:15)
[2024-06-23 11:23] LABS: Bedside Glucose 365 mg/dL (74-106)
[2024-06-23] MEDS: Insulin Lispro 100 UNIT/ML INSULN.PEN 10 UNIT SC ×2 (12:18→16:32)
--- NOTE | 2024-06-23 14:01 | PCM.PN.ID ---
Physical Exam Narrative No fever, no events overnight, sleeping this afternoon Const no apparent distress Resp normal air movement and clear to auscultation bilaterally Cardio regular rate and regular rhythm GI soft to palpation, non-tender and non-distended Skin no rashes or lesions noted ID ID: Route of nutrition/ use of supplements: [] Nutritional Intake: [] IV Site: [] Ball Catheter: [] Assessment & Plan Assessment/Plan (1) Acute alteration in mental status: (2) Sepsis: PLAN: sepsis due to MRSA bacteremia, suspect pulm source. Will check repeat bcx. No veg seen on TTE. Picc placed while bacteremia, will need to remove if bcx do not clear. Cont vanc, will stop zosyn. Will follow (3) MRSA bacteremia:
[2024-06-23 16:18] LABS: Bedside Glucose 322 mg/dL (74-106)
[2024-06-23] MEDS: Insulin Lispro 100 UNIT/ML INSULN.PEN 15 UNIT SC (18:12)
[2024-06-23] MEDS: Budesonide Respules 0.5 MG/2 ML AMPUL.NEB. INHALATION (19:25)
[2024-06-23] MEDS: Mirtazapine 15 MG Tablet 7.5 MG PO (21:15)
[2024-06-23] MEDS: Dextrose 10%-Water 250 ML 999 ML IV (21:15)
[2024-06-23] MEDS: Atorvastatin Calcium 20 MG Tablet PO (21:16)
[2024-06-23] MEDS: Tamsulosin HCl 0.4 MG Capsule PO (21:16)
[2024-06-23 23:51] LABS: Bedside Glucose 89 mg/dL (74-106)
[2024-06-23 23:51] LABS: Bedside Glucose 58 mg/dL (74-106)
[2024-06-23 23:51] LABS: Bedside Glucose 134 mg/dL (74-106)
[2024-06-24] VITALS (14 sets, daily range): BP systolic 109–149; BP diastolic 64–71; PULSE 59–95; RESP 12–22; TEMP 35.9–36.6; O2SAT 92–100; BMI 29.5
[2024-06-24 07:12] LABS: Bedside Glucose 105 mg/dL (74-106)
[2024-06-24] MEDS: Ipratropium/Albuterol Sulfate 3 ML AMPUL.NEB INHALATION ×4 (07:17→19:42)
[2024-06-24] MEDS: Budesonide Respules 0.5 MG/2 ML AMPUL.NEB. INHALATION ×2 (07:17→19:42)
[2024-06-24] MEDS: Carvedilol 3.125 MG TABLET PO ×2 (08:09→16:20)
[2024-06-24] MEDS: predniSONE 20 MG Tablet 40 MG PO (08:09)
--- NOTE | 2024-06-24 08:30 | PCM.PN.HOSP ---
Reason for Visit Reason for Visit: Diagnoses Sepsis, unspecified organism (06/20/24) Methicillin resistant Staphylococcus aureus infection as the cause of diseases classified elsewhere (06/20/24) Acute and chronic respiratory failure with hypoxia (06/20/24) Altered mental status, unspecified (06/20/24) Bacteremia (06/20/24) Subjective Subjective Patient repeat blood cultures so far negative Objective Data Objective Data Vital Signs: Vital Signs Temp Pulse Resp BP Pulse Ox O2 Del Method O2 Flow Rate 97.8 F 72 16 109/68 92 Nasal Cannula 4 06/24/24 06:00 06/24/24 07:17 06/24/24 07:17 06/24/24 06:00 06/24/24 07:17 06/24/24 07:17 06/24/24 07:17 FiO2 30 06/24/24 01:00 Oxygen Flow Rate (L/min) 4 Oxygen Delivery Method Nasal Cannula Weight: 96 kg Body Mass Index (BMI) 29.5 Intake & Output: Intake and Output for Last 24 Hours 06/22/24 06/23/24 06/24/24 23:59 23:59 23:59 Intake Total 895 / 1295 1780 / 1780 0 / 0 Output Total 300 / 750 1425 / 1425 500 / 500 Balance 595 / 545 355 / 355 -500 / -500 Lab / Micro Data 06/24/24 08:40 06/24/24 08:40 Labs: Laboratory Results - last 24 hr 06/23/24 11:01: POC Glucose 365 H 06/23/24 15:56: POC Glucose 322 H 06/23/24 21:01: POC Glucose 58 L 06/23/24 21:29: POC Glucose 134 H 06/23/24 23:34: POC Glucose 89 06/24/24 06:35: POC Glucose 105 Micro: Microbiology 06/20/24 19:55 Urine, Clean Catch Urine Culture - Final Yeast, not Elisha albicans 06/20/24 16:30 Blood Culture (Wb) - Anticubital Right Blood Culture - Final Meth. resistant Staph. aureus 06/20/24 16:30 Blood Culture (Wb) - Venous Bacteria Detection (PCR) - Final Meth. resistant Staph. aureus 06/20/24 16:30 Blood Culture (Wb) - Venous Blood Culture - Final Meth. resistant Staph. aureus 06/21/24 10:00 Sputum, Expectorated/Coughed Gram Stain - Final 06/21/24 10:00 Sputum, Expectorated/Coughed Respiratory Culture - Final Meth. resistant Staph. aureus 06/20/24 20:05 Mucosa - Nasopharyngeal Respiratory Panel (PCR) - Final 06/20/24 19:55 Urine Catheter - Ball Legionella Antigen - Final 06/20/24 19:55 Urine Catheter - Ball Streptococcus pneumoniae Antigen (M - Final 06/20/24 16:32 Mucosa - Nose SARS-CoV-2, Influenza & RSV (PCR) - Final Physical Exam Narrative GENERAL: cooperative HEENT: Atraumatic; normocephalic EYES; Anicteric, Normal Conjunctiva NECK; supple, normal thyroid, RESPIRATORY: Diminished to auscultation CARDIOVASCULAR: Regular S1 S2, GI: soft, normoactive bowel sounds, : No Renal angle tenderness; EXTREMITIES: Bilateral stasis dermatitis with some edema MUSCULOSKELETAL: no muscle wasting NEURO: Awake; no lateralizing signs. SKIN: No Rash PSYCH; Flat affect Assessment & Plan Assessment/Plan (1) Acute and chronic respiratory failure with hypoxia: PLAN: Plan Patient is a 73-year-old gentleman with multiple comorbidities including ischemic cardiomyopathy, COPD/home oxygen who presented to the emergency department with progressive shortness of breath as well as cough productive of yellowish sputum. An assessment of sepsis secondary to pneumonia made on admission admitted to the intensive care unit for subsequent management 1. Septic shock ? Secondary to MRSA pneumonia. Treatment initiated per protocol with fluid resuscitation, antibiotics per protocol and subsequent response to therapy monitored with serial lactic acid levels. Patient had to be placed on pressor support with Levophed which has since been weaned off. ? 06/22/2024; patient sputum cultures as well as blood cultures came back positive for Staph aureus. Consult placed to ID. Patient already on appropriate antibiotic therapy ith Zosyn and azithromycin as well as vancomycin. Patient WBC count still remains elevated 2. MRSA bacteremia ?Patient blood cultures came back positive for MRSA repeat cultures ordered in addition did obtain ID consultation as well as transthoracic echo ? 06/23/2024;Repeat cultures sent on 06/22/2024 results pending. Transthoracic echo demonstrated EF of 25% but no evidence of vegetations. ID was consulted the day prior patient seen by Dr. Camara his noted recommendations reviewed ? 06/24/2024 patient blood cultures so far negative to date. ID recommending for patient to be discharged home on 06/25/2024 with IV antibiotics if cultures remain negative with stop date of 07/20/2024 3. Acute on chronic hypoxic respiratory failure ? Secondary to pneumonia. Patient is on baseline oxygen 3 L at rest patient was found to be saturating 78% on 6 L. Placed on high flow oxygen 4. 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 Echo from 09/04/2023 demonstrated EF of 25% with severe global hypokinesis. Patient remains compensated at this point 5.? Chronic hypoxic respiratory failure ? Secondary to suspected pulmonary fibrosis COPD and CHF. Patient is on supplemental oxygen at home 6.? 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 Previously treated with apixaban.? Patient did not tolerate apixaban as a result of GI bleed he underwent IVC filter placement on 05/02/2021 7.? Anemia ? Secondary to chronic disorder monitoring H&H and transfuse if patient becomes symptomatic or hemoglobin falls below 7 ? 06/24/2024; patient hemoglobin down to 8.1 repeat H&H ordered for a.m. 8.? Non Hodgkin's lymphoma ? in remission 9.? Coronary artery disease ?With previous PCI of an LAD RCA and mid circumflex lesions 10. BPH with lower urinary obstructive symptoms - Patient treated with tamsulosin 11. GERD The patient is on PPI 12. Chronic kidney disease stage IIIb ? Patient kidney function at baseline 13.? Dyslipidemia -Patient is on statin therapy, continued at home dose 14..? Hypertension - Blood pressure controlled, home medications continued with dose adjustment as needed 15. Depression ? Patient is on Remeron and escitalopram plan is to resume following med rec 16. Rheumatoid arthritis Patient previously treated with rituximab as outpatient 17 . Diabetes mellitus type II Placed on long acting insulin, Accu-Cheks a.c. and at bedtime and covered with sliding scale insulin ? 06/23/2024; adjusted patient insulin regimen given elevated blood glucose level 17. DVT prophylaxis ? Bilateral SCDs Charges/Coding Visit Charges Inpatient E&M: 80134 Subs Hosp L2
[2024-06-24] MEDS: Insulin Glargine-YFGN 100 UNIT/ML Pen 20 UNIT SC ×2 (09:15→22:59)
[2024-06-24] MEDS: Furosemide 20 MG Tablet PO (09:15)
[2024-06-24] MEDS: Finasteride 5 MG Tablet PO (09:16)
[2024-06-24] MEDS: Escitalopram Oxalate 10 MG Tablet PO (09:16)
[2024-06-24] MEDS: Pantoprazole Sodium 40 MG Tablet PO ×2 (09:17→22:58)
[2024-06-24] MEDS: Vancomycin Trough/Random Due 1 LAB MC (09:18)
[2024-06-24 09:22] LABS: Absolute Lymphocyte Count 0.94 X10^3/uL (0.83-4.51); Absolute Neutrophil Count 7.6 X10^3/uL (2.0-7.7); Basophil# 0.02 X10^3/uL; Basophil% 0.2 % (0-1); Eosinophil# 0.01 X10^3/uL; Eosinophils% 0.1 % (0-5); Hematocrit 25.8 % (40-54); Hemoglobin 8.1 g/dL (13.0-16.5); Lymphocyte # 0.94 X10^3/ul (0.83-4.51); Mean Corp Hgb Conc 31.4 g/dL (32-36); Mean Corpuscular Hgb 29.2 pg (27.0-32.0); Mean Corpuscular Volume 93.1 fL (80-94); Mean Platelet Vol. 11.5 fl (6.2-12.0); Monocyte# 0.69 X10^3/uL; Monocyte% 7.4 % (0-10); NRBC Flagged by Analyzer 0.3 % (0-5); Neutrophil # 7.61 X10^3/uL (2.7-7.7); Neutrophil % 81.3 % (47-70); POSITIVE MORPHOLOGY YES; Platelet Count 196 K/mm3 (150-450); RBC Distribution Width CV 20.6 % (11.6-14.6); Red Blood Count 2.77 M/mm3 (4.6-6.2); White Blood Count 9.4 K/mm3 (4.4-11.0)
[2024-06-24 09:23] LABS: Differential Indicated SCAN CRITERIA MET
[2024-06-24 09:41] LABS: Anion Gap 8 (5-15); BUN 53 mg/dL (4-19); BUN/Creat Ratio 38.6 RATIO (10-20); Calcium,Total 8.8 mg/dL (7.6-11.0); Chloride 105 mmol/L (98-108); Creatinine, Serum 1.36 mg/dL (0.70-1.20); EST Glomerular Filtration Rate 55 (>60); Estimated Creatinine Clearance 56.33 ml/min (50-250); Glucose 105 mg/dL (70-99); Potassium 4.5 mmol/L (3.3-5.1); Sodium Level 140 mmol/L (133-145)
--- NOTE | 2024-06-24 09:58 | PN.ID_ITS ---
Physical Exam Narrative Feeling better, breathing improved, no fever, no n/v/d. Const alert and no apparent distress General Appearance: cooperative Resp normal air movement and clear to auscultation bilaterally Cardio regular rate and regular rhythm GI soft to palpation, non-tender and non-distended Skin no rashes or lesions noted ID ID: Route of nutrition/ use of supplements: [] Nutritional Intake: [] IV Site: [] Ball Catheter: [] Assessment & Plan Assessment/Plan (1) Acute alteration in mental status: (2) Sepsis: PLAN: sepsis due to MRSA bacteremia, suspect pulm source. Repeat bcx neg since 06/22/24. No veg seen on TTE. Picc in place. If bcx from 06/22 are still neg tomorrow, plan on discharge on iv vanc, stop date 07/20/24 with weekly labs. ID followup in 2 weeks. Wrote rx, d/w patient case coordinator. Will follow (3) MRSA bacteremia:
--- NOTE | 2024-06-24 10:37 | CASEMGMT ---
TARAH DEL RIO notified by ID, pt needing IV antibiotics to go home with. TARAH DEL RIO into pt room, discussed need for IV antibiotics at DC. Pt states he lives with son and DIL and they are able to assist with IV antibiotics. Pt states DIL is an [employer]. Pt states he previously used [facility] and they are is [facility] agency of choice. TARAH DEL RIO provided verbal list of [facility] companies to deliver IV antibiotics, pt chose [facility] as agency of choice. TARAH DEL RIO called [facility] for referral, waiting on acceptance. TARAH DEL RIO asked DC director of gift planning to send referral to [facility].
--- NOTE | 2024-06-24 10:56 | CASEMGMT ---
Discharge Planning Referral sent to I. Batool Zeng DC Planning Asst.
--- NOTE | 2024-06-24 11:17 | CASEMGMT ---
[facility] called and able to accept pt. SOC Friday Morning. RN CM asked ID if pt can skip 2nd dose Friday night, ID stated ok to do so. Awaiting acceptance from [facility] for infusion delivery.
[2024-06-24] MEDS: Insulin Lispro 100 UNIT/ML INSULN.PEN SC ×5 (11:43→22:58)
[2024-06-24 12:10] LABS: Bedside Glucose 222 mg/dL (74-106)
[2024-06-24 12:26] LABS: Vancomycin, Trough Level 18.8 ug/mL (5.0-15.0)
--- NOTE | 2024-06-24 12:37 | PCM.RX.CS ---
Consult Antibiotic Management Pharmacy has been consulted to manage selected antibiotic: Vancomycin Type of Intervention Type of Consult: Follow-up Suspected Infection Suspected Infection: Sepsis and Pneumonia Prior Doses of Antibiotics Prior Doses of Antibiotics Received/Current Regimen: Vancomycin 500 mg Q12H last dose given 06/23 @ 2115 Labs Labs: Sodium 140 mmol/L (133-145) 06/24/24 08:40 Potassium 4.5 mmol/L (3.3-5.1) 06/24/24 08:40 Chloride 105 mmol/L (98-108) 06/24/24 08:40 Carbon Dioxide 27.0 mmol/L (21.0-32.0) 06/24/24 08:40 Anion Gap 8 (5-15) 06/24/24 08:40 BUN 53 mg/dL (4-19) H 06/24/24 08:40 Creatinine 1.36 mg/dL (0.70-1.20) H 06/24/24 08:40 Est GFR (MDRD) Non-Af 55 (>60) L 06/24/24 08:40 BUN/Creatinine Ratio 38.6 RATIO (10-20) H 06/24/24 08:40 Glucose 105 mg/dL (70-99) H 06/24/24 08:40 Vancomycin Trough 18.8 ug/mL (5.0-15.0) H 06/24/24 08:40 Random Vancomycin 16.3 ug/mL (0.0-15.0) H 06/22/24 19:15 Microbiology Microbiology: Microbiology 06/22/24 08:15 Blood Culture (Wb) - Right Wrist Blood Culture - Preliminary No growth in 48 hours. 06/22/24 08:09 Blood Culture (Wb) - Anticubital Right Blood Culture - Preliminary No growth in 48 hours. 06/20/24 19:55 Urine, Clean Catch Urine Culture - Final Yeast, not Elisha albicans 06/20/24 16:30 Blood Culture (Wb) - Anticubital Right Blood Culture - Final Meth. resistant Staph. aureus 06/20/24 16:30 Blood Culture (Wb) - Venous Bacteria Detection (PCR) - Final Meth. resistant Staph. aureus 06/20/24 16:30 Blood Culture (Wb) - Venous Blood Culture - Final Meth. resistant Staph. aureus 06/21/24 10:00 Sputum, Expectorated/Coughed Gram Stain - Final 06/21/24 10:00 Sputum, Expectorated/Coughed Respiratory Culture - Final Meth. resistant Staph. aureus 06/20/24 20:05 Mucosa - Nasopharyngeal Respiratory Panel (PCR) - Final 06/20/24 19:55 Urine Catheter - Ball Legionella Antigen - Final 06/20/24 19:55 Urine Catheter - Ball Streptococcus pneumoniae Antigen (M - Final 06/20/24 16:32 Mucosa - Nose SARS-CoV-2, Influenza & RSV (PCR) - Final Dosing Weight Weight used for dosin kg Estimated Creatinine Clearance Estimated Creatinine Clearance: ~56 Goal Trough Goal Trough: 15-20 mcg/mL Pharmacy Plan for Drug Dosing Pharmacy Plan for Drug Dosing: Vancomycin trough drawn @ 0840 (received by pharmacy ~ 1215) = 18.8. Continue current dosing. Pharmacy Service will continue to monitor and adjust dosing as required. Follow-Up Labs Follow-Up Labs: Trough: Vancomycin Date/Time Labs Ordered Labs to be done on [date and time ordered]: 06/26/24 @ 0000
[2024-06-24] MEDS: Vancomycin IV 500 MG/100 ML BAG 100 MG IV (13:04)
[2024-06-24] MEDS: 0.9% Saline Lock 10 ML Syringe IV (13:04)
--- NOTE | 2024-06-24 15:32 | CASEMGMT ---
Social Work SW met with pt and informed that [facility] have accepted with a start of care on Friday. SW explained that cost of antibiotic is $55.74/week for 4 weeks and that supplies will be covered at 80% until out of pocket deductible is met. Pt currently is at $1303.03/$3600. Although frustrated by insurance coverage, pt is agreeable to return home with payment for home IV ATB. JOEY Zuñiga
[2024-06-24 16:39] LABS: Bedside Glucose 256 mg/dL (74-106)
[2024-06-24] MEDS: Mirtazapine 15 MG Tablet 7.5 MG PO (22:58)
[2024-06-24] MEDS: Tamsulosin HCl 0.4 MG Capsule PO (22:58)
[2024-06-24] MEDS: Atorvastatin Calcium 20 MG Tablet PO (22:58)
[2024-06-24 23:27] LABS: Bedside Glucose 350 mg/dL (74-106)
[2024-06-25] VITALS (8 sets, daily range): BP systolic 113–134; BP diastolic 62–89; PULSE 60–120; RESP 12–22; TEMP 36.4–36.6; O2SAT 91–97; BMI 30.3
[2024-06-25] MEDS: Vancomycin IV 500 MG/100 ML BAG 100 MG IV ×2 (00:21→12:21)
[2024-06-25] MEDS: 0.9% Saline Lock 10 ML Syringe IV ×3 (00:22→12:21)
[2024-06-25 06:37] LABS: Absolute Lymphocyte Count 0.88 X10^3/uL (0.83-4.51); Absolute Neutrophil Count 5.5 X10^3/uL (2.0-7.7); Eosinophil# 0.02 X10^3/uL; Eosinophils% 0.3 % (0-5); Hematocrit 24.7 % (40-54); Hemoglobin 7.7 g/dL (13.0-16.5); Lymphocyte # 0.88 X10^3/ul (0.83-4.51); Lymphocyte % 12.3 % (19-41); Mean Corp Hgb Conc 31.2 g/dL (32-36); Mean Corpuscular Hgb 28.7 pg (27.0-32.0); Mean Corpuscular Volume 92.2 fL (80-94); Monocyte# 0.61 X10^3/uL; Monocyte% 8.5 % (0-10); NRBC Flagged by Analyzer 0 % (0-5); Neutrophil # 5.54 X10^3/uL (2.7-7.7); Neutrophil % 77.4 % (47-70); POSITIVE MORPHOLOGY YES; Platelet Count 186 K/mm3 (150-450); RBC Distribution Width CV 20.3 % (11.6-14.6); RBC Distribution Width SD 69.2 fl (35.1-43.9); Red Blood Count 2.68 M/mm3 (4.6-6.2); White Blood Count 7.2 K/mm3 (4.4-11.0)
[2024-06-25 06:49] LABS: Differential Indicated SCAN CRITERIA MET
[2024-06-25] MEDS: Ipratropium/Albuterol Sulfate 3 ML AMPUL.NEB INHALATION ×2 (07:07→11:32)
[2024-06-25] MEDS: Budesonide Respules 0.5 MG/2 ML AMPUL.NEB. INHALATION (07:07)
[2024-06-25 07:10] LABS: Anion Gap 8 (5-15); BUN 46 mg/dL (4-19); BUN/Creat Ratio 41.4 RATIO (10-20); Calcium,Total 8.6 mg/dL (7.6-11.0); Carbon Dioxide 27.1 mmol/L (21.0-32.0); Chloride 103 mmol/L (98-108); Creatinine, Serum 1.12 mg/dL (0.70-1.20); EST Glomerular Filtration Rate 69 (>60); Estimated Creatinine Clearance 69.29 ml/min (50-250); Glucose 241 mg/dL (70-99); Potassium 4.3 mmol/L (3.3-5.1); Sodium Level 138 mmol/L (133-145)
[2024-06-25 07:20] LABS: Anisocytosis 2+; Differential Comment SCANNED
[2024-06-25] MEDS: Insulin Lispro 100 UNIT/ML INSULN.PEN SC ×2 (09:22)
[2024-06-25] MEDS: Insulin Glargine-YFGN 100 UNIT/ML Pen 20 UNIT SC (09:23)
[2024-06-25] MEDS: predniSONE 20 MG Tablet 40 MG PO (09:24)
[2024-06-25] MEDS: Furosemide 20 MG Tablet PO (09:24)
[2024-06-25] MEDS: Carvedilol 3.125 MG TABLET PO (09:24)
[2024-06-25] MEDS: Escitalopram Oxalate 10 MG Tablet PO (09:24)
[2024-06-25] MEDS: Ferrous Sulfate 325 MG Tablet PO (09:24)
[2024-06-25] MEDS: Pantoprazole Sodium 40 MG Tablet PO (09:25)
[2024-06-25] MEDS: Finasteride 5 MG Tablet PO (09:25)
--- NOTE | 2024-06-25 09:29 | PCM.DC.SUM ---
Providers Date of Admission: 06/20/24 Date of Discharge: 06/25/24 Primary Care Physician: Dr. Donna Will MD Consultations 06/21/24 05:53 Consult: [employer] / Pulmonary Medicine Routine Consulting Provider: Intensivists/Pulmonary Med Reason for Consult: ICU management EMERGENT Consult: No Notified: Yes Date Notified: 06/21/24 Time Notified: 05:53 Method of Notification: Text 06/22/24 07:41 Consult: Infectious Disease Routine Consulting Provider: Wilberto Villafuerte Reason for Consult: MRSA bacteremia EMERGENT Consult: No Notified: Yes Date Notified: 06/22/24 Time Notified: 07:41 Method of Notification: Text Reason For Visit: SUSPECT SEPSIS SECONDARY TO SUSPECTED PNEUMONIA Diagnosis Discharge Diagnosis (1) Acute and chronic respiratory failure with hypoxia: Status: Acute Code(s): J96.21 - Acute and chronic respiratory failure with hypoxia Plan Patient is a 73-year-old gentleman with multiple comorbidities including ischemic cardiomyopathy, COPD/home oxygen who presented to the emergency department with progressive shortness of breath as well as cough productive of yellowish sputum. An assessment of sepsis secondary to pneumonia made on admission admitted to the intensive care unit for subsequent management 1. Septic shock ? Secondary to MRSA pneumonia. Treatment initiated per protocol with fluid resuscitation, antibiotics per protocol and subsequent response to therapy monitored with serial lactic acid levels. Patient had to be placed on pressor support with Levophed which has since been weaned off. ? 06/22/2024; patient sputum cultures as well as blood cultures came back positive for Staph aureus. Consult placed to ID. Patient already on appropriate antibiotic therapy ith Zosyn and azithromycin as well as vancomycin. Patient WBC count still remains elevated 2. MRSA bacteremia ?Patient blood cultures came back positive for MRSA repeat cultures ordered in addition did obtain ID consultation as well as transthoracic echo ? 06/23/2024;Repeat cultures sent on 06/22/2024 results pending. Transthoracic echo demonstrated EF of 25% but no evidence of vegetations. ID was consulted the day prior patient seen by Dr. Camara his noted recommendations reviewed ? 06/24/2024 patient blood cultures so far negative to date. ID recommending for patient to be discharged home on 06/25/2024 with IV antibiotics if cultures remain negative with stop date of 07/20/2024 3. Acute on chronic hypoxic respiratory failure ? Secondary to pneumonia. Patient is on baseline oxygen 3 L at rest patient was found to be saturating 78% on 6 L. Placed on high flow oxygen 4. 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 Echo from 09/04/2023 demonstrated EF of 25% with severe global hypokinesis. Patient remains compensated at this point 5.? Chronic hypoxic respiratory failure ? Secondary to suspected pulmonary fibrosis COPD and CHF. Patient is on supplemental oxygen at home 6.? 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 Previously treated with apixaban.? Patient did not tolerate apixaban as a result of GI bleed he underwent IVC filter placement on 05/02/2021 7.? Anemia ? Secondary to chronic disorder monitoring H&H and transfuse if patient becomes symptomatic or hemoglobin falls below 7 ? 06/24/2024; patient hemoglobin down to 8.1 repeat H&H ordered for a.m. 8.? Non Hodgkin's lymphoma ? in remission 9.? Coronary artery disease ?With previous PCI of an LAD RCA and mid circumflex lesions 10. BPH with lower urinary obstructive symptoms - Patient treated with tamsulosin 11. GERD The patient is on PPI 12. Chronic kidney disease stage IIIb ? Patient kidney function at baseline 13.? Dyslipidemia -Patient is on statin therapy, continued at home dose 14..? Hypertension - Blood pressure controlled, home medications continued with dose adjustment as needed 15. Depression ? Patient is on Remeron and escitalopram plan is to resume following med rec 16. Rheumatoid arthritis Patient previously treated with rituximab as outpatient 17 . Diabetes mellitus type II Placed on long acting insulin, Accu-Cheks a.c. and at bedtime and covered with sliding scale insulin ? 06/23/2024; adjusted patient insulin regimen given elevated blood glucose level 17. DVT prophylaxis ? Bilateral SCDs Medications at Discharge Home Medications finasteride 5 mg tablet 5 mg PO DAILY prostate 08/14/22 tamsulosin 0.4 mg capsule 0.4 mg PO QHS prostate 08/14/22 multivitamin 1 tab PO DAILY vitamin 09/13/22 menthol 0.44 %-zinc oxide 20.6 % topical ointment (Calmoseptine) 1 applic topical 4-6XD PRN skin irritation #113 grams 03/07/23 carvedilol 3.125 mg tablet 3.125 mg PO BID BP #60 tabs 04/11/24 atorvastatin 40 mg tablet 20 mg (1/2 x 40 mg) PO QHS cholesterol #90 tabs 09/18/23 budesonide 1 mg/2 mL suspension for nebulization 1 mg (2 mL) inhalation Q12H wheezing/SOB #120 mL 09/19/23 ipratropium 0.5 mg-albuterol 3 mg (2.5 mg base)/3 mL nebulization soln 3 ml inhalation Q4H PRN PRN SOB &/OR WHEEZING #270 mL 09/19/23 escitalopram oxalate 10 mg tablet 10 mg PO DAILY mood 90 days #90 tabs 10/29/23 mirtazapine 15 mg tablet (Remeron) 7.5 mg (1/2 x 15 mg) PO QHS sleep #90 tabs 10/29/23 insulin aspart U-100 100 unit/mL (3 mL) subcutaneous pen See Protocol subcut ACHS high blood glucose 1 month #15 mL 11/12/23 needle (disp) 32 gauge 32 gauge x 5/16 (Easy Touch Hypodermic Needle) #100 ea 11/12/23 pen needle, diabetic 32 gauge x 5/32 #100 ea 12/03/23 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 meter,continuous (FreeStyle Basilio 3 [place]) #1 ea 12/24/23 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 sensor (FreeStyle Basilio 3 Sensor device) #1 ea 12/24/23 furosemide 40 mg tablet (Lasix) 20 mg (1/2 x 40 mg) PO DAILY diuretic #60 tabs 03/08/24 empagliflozin 10 mg tablet (Jardiance) 10 mg PO QDAY diabetes 03/16/24 ferrous sulfate 325 mg (65 mg iron) tablet (FeroSul) 325 mg PO QODAY Supplement 04/05/24 vancomycin 500 mg/100 mL in dextrose 5 % intravenous piggyback 500 mg IV Q12H 26 days #5,200 mL 06/24/24 guaifenesin 1,200 mg tablet, extended release 12 hr (Mucus Relief ER) 1,200 mg PO BID #20 tabs 06/25/24 insulin glargine-yfgn 100 unit/mL (3 mL) subcutaneous pen 20 unit (0.2 mL) subcut BIDCM high blood glucose #15 mL 06/25/24 prednisone 20 mg tablet 40 mg (2 x 20 mg) PO BREAKFAST #10 tabs 06/25/24 Hospital Course Summary of Care Provided Minutes Spent on Discharge: 35 Physical Exam Narrative GENERAL: cooperative HEENT: Atraumatic; normocephalic EYES; Anicteric, Normal Conjunctiva NECK; supple, normal thyroid, RESPIRATORY: Diminished to auscultation CARDIOVASCULAR: Regular S1 S2, GI: soft, normoactive bowel sounds, : No Renal angle tenderness; EXTREMITIES: Bilateral stasis dermatitis with some edema MUSCULOSKELETAL: no muscle wasting NEURO: Awake; no lateralizing signs. SKIN: No Rash PSYCH; Flat affect Weight / BMI Weight Weight: 98.7 kg Body Mass Index (BMI) 30.3 ABG / Lab / Microbiology Data 06/25/24 05:55 06/25/24 05:55 Laboratory: Laboratory Results - last 24 hr 06/24/24 08:40: WBC 9.4, RBC 2.77 L, Hgb 8.1 L, Hct 25.8 L, MCV 93.1, MCH 29.2, MCHC 31.4 L, RDW Std Deviation 71.0 H, RDW Coeff of Rafael 20.6 H, Plt Count 196, MPV 11.5, Immature Gran % (Auto) 1.000 H, Neut % (Auto) 81.3 H, Lymph % (Auto) 10.0 L, Towns % (Auto) 7.4, Eos % (Auto) 0.1, Baso % (Auto) 0.2, Absolute Neuts (auto) 7.6, Absolute Lymphs (auto) 0.94, Nucleated RBC % 0.3, Differential Comment , Sodium 140, Potassium 4.5, Chloride 105, Carbon Dioxide 27.0, Anion Gap 8, BUN 53 H, Creatinine 1.36 H, Estim Creat Clear Calc 56.33, Est GFR (MDRD) Non-Af 55 L, BUN/Creatinine Ratio 38.6 H, Glucose 105 H, Calcium 8.8, Vancomycin Trough 18.8 H 06/24/24 11:40: POC Glucose 222 H 06/24/24 16:18: POC Glucose 256 H 06/24/24 22:53: POC Glucose 350 H 06/25/24 05:55: WBC 7.2, RBC 2.68 L, Hgb 7.7 L, Hct 24.7 L, MCV 92.2, MCH 28.7, MCHC 31.2 L, RDW Std Deviation 69.2 H, RDW Coeff of Rafael 20.3 H, Plt Count 186, MPV 11.0, Immature Gran % (Auto) 1.500 H, Neut % (Auto) 77.4 H, Lymph % (Auto) 12.3 L, Towns % (Auto) 8.5, Eos % (Auto) 0.3, Baso % (Auto) 0.0, Absolute Neuts (auto) 5.5, Absolute Lymphs (auto) 0.88, Nucleated RBC % 0, Differential Comment SCANNED, Anisocytosis 2+, Sodium 138, Potassium 4.3, Chloride 103, Carbon Dioxide 27.1, Anion Gap 8, BUN 46 H, Creatinine 1.12, Estim Creat Clear Calc 69.29, Est GFR (MDRD) Non-Af 69, BUN/Creatinine Ratio 41.4 H, Glucose 241 H, Calcium 8.6, Magnesium 2.0 Microbiology: Microbiology 06/22/24 08:15 Blood Culture (Wb) - Right Wrist Blood Culture - Preliminary No growth in 48 hours. 06/22/24 08:09 Blood Culture (Wb) - Anticubital Right Blood Culture - Preliminary No growth in 48 hours. 06/20/24 19:55 Urine, Clean Catch Urine Culture - Final Yeast, not Elisha albicans 06/20/24 16:30 Blood Culture (Wb) - Anticubital Right Blood Culture - Final Meth. resistant Staph. aureus 06/20/24 16:30 Blood Culture (Wb) - Venous Bacteria Detection (PCR) - Final Meth. resistant Staph. aureus 06/20/24 16:30 Blood Culture (Wb) - Venous Blood Culture - Final Meth. resistant Staph. aureus 06/21/24 10:00 Sputum, Expectorated/Coughed Gram Stain - Final 06/21/24 10:00 Sputum, Expectorated/Coughed Respiratory Culture - Final Meth. resistant Staph. aureus 06/20/24 20:05 Mucosa - Nasopharyngeal Respiratory Panel (PCR) - Final 06/20/24 19:55 Urine Catheter - Ball Legionella Antigen - Final 06/20/24 19:55 Urine Catheter - Ball Streptococcus pneumoniae Antigen (M - Final 06/20/24 16:32 Mucosa - Nose SARS-CoV-2, Influenza & RSV (PCR) - Final D/C Instructions Discharge Diet: 1800 Calorie Control Diet Discharge Activity: Return to Normal Activity Call your doctor if you observe: Fever of 101 or Higher, Shortness of breath, Fainting spells and Chest pain DC O2, CPAP, BIPAP Needs Home O2 Discharge instructions: Yes Type of respiratory needs?: Oxygen (4) Oxygen frequency: Continuous Continuous oxygen liters per minute: 4 DC home with Oxygen: Yes Home O2 MD Review: I have reviewed the oxygen testing, and the patient qualifies for home oxygen equipment and portability. The patient is mobile in the home and the community. Meaningful Use Info Meaningful Use Meaningful Use Diagnoses (Choose all that apply): None applicable Ischemic Stroke Statin Dosing Therapy Reference: STATIN DOSE THERAPY REFERENCE: * Patients > 75 years receive moderate or high dose statin therapy. * Patients 75 years or YOUNGER should receive HIGH intensity statin dose unless contraindicated. You will be required to document reason for non-treatment if statin daily dose does not meet guidelines. HIGH DOSE STATIN THERAPY DAILY Atorvastatin > than or = to 40 mg Rosuvastatin > than or = to 20 mg Amlodipine + Atorvastatin > than or = to 2.5/40 mg Ezetimibe + Simvastatin 10/80 mg Simvastatin 80mg Discharge Plan Admission Admit Date/Time: 06/20/24 18:06 Attending Provider: Jordan Ortiz Primary Care Provider: Donna Will Consulting Providers: Mable Pritchard; Wilberto Villafuerte Discharge Orders/Prescriptions Prescriptions: New vancomycin in dextrose 5 % 500 mg/100 mL Piggyback 500 mg IV Q12H 26 Days Qty: 5200 0RF Rx Instructions: stop date 07/20/24. Dx: MRSA bacteremia. Weekly bmp, cbc, and vanc trough. Fax to [phone]. Routine picc care per protocol. guaifenesin [Mucus Relief ER] 1,200 mg Tablet Extended Release 12hr 1,200 mg PO BID Qty: 20 0RF prednisone 20 mg Tablet 40 mg PO BREAKFAST Qty: 10 0RF Continued multivitamin Tablet 1 tab PO DAILY tamsulosin 0.4 mg capsule 0.4 mg PO QHS finasteride 5 mg tablet 5 mg PO DAILY ipratropium-albuterol 0.5 mg-3 mg(2.5 mg base)/3 mL solution for nebulization 3 ml inhalation Q4H PRN PRN (Reason: SOB &/OR WHEEZING) Qty: 270 11RF budesonide 1 mg/2 mL suspension for nebulization 1 mg inhalation Q12H Qty: 120 11RF (DME) pen needle, diabetic 32 gauge x 5/32 needle See Rx Instructions .ROUTE .MEDSUPPLY Qty: 100 5RF Rx Instructions: As directed Jardiance 10 mg tablet 10 mg PO QDAY ferrous sulfate [FeroSul] 325 mg (65 mg iron) Tablet 325 mg PO QODAY (DME) Easy Touch Hypodermic Needle 32 gauge x 5/16 needle See Rx Instructions .Route Qty: 100 0RF Rx Instructions: As directed insulin aspart U-100 100 unit/mL (3 mL) insulin pen See Protocol subcut ACHS 30 Days Qty: 15 0RF Protocol: 3. Sliding Scale Insulin Med Dosing Condition: 150-189 mg/dl = 1 unit Condition: 190-229 mg/dl = 2 units Condition: 230-269 mg/dl = 3 units Condition: 270-309 mg/dl = 4 units Condition: 310-349 mg/dl = 5 units Condition: 350-399 mg/dl = 6 units Condition: 400-449 mg/dl = 7 units Condition: Greater than 449 call physician Protocol Text: Suggested for: - Patients on Total Daily Insulin Dose of 37-55 units - Obese, infected, or steroid patients MEDIUM DOSING ALGORITHIM menthol-zinc oxide [Calmoseptine] 0.44-20.6 % ointment 1 applic topical 4-6XD PRN (Reason: skin irritation) Qty: 113 2RF carvedilol 3.125 mg tablet 3.125 mg PO BID Qty: 60 11RF Rx Instructions: must administer with a meal/food atorvastatin 40 mg tablet 20 mg PO QHS Qty: 90 3RF escitalopram oxalate 10 mg tablet 10 mg PO DAILY 90 Days Qty: 90 3RF mirtazapine [Remeron] 15 mg tablet 7.5 mg PO QHS Qty: 90 3RF (DME) FreeStyle Basilio 3 Sensor Device See Rx Instructions .Route Qty: 1 5RF Rx Instructions: As directed (DME) FreeStyle Basilio 3 [place] Misc See Rx Instructions .Route Qty: 1 0RF Rx Instructions: As directed furosemide [Lasix] 40 mg tablet 20 mg PO DAILY Qty: 60 1RF Changed insulin glargine-yfgn 100 unit/mL (3 mL) insulin pen 20 unit subcut BIDCM Qty: 15 1RF Other Ambulatory Orders: Basic Metabolic Profile (BMP) (QWEEK) Timeframe: 20240702 Facility: [facility] - Location: Laboratory Ordered By: Dr. Jordan Ortiz Basic Metabolic Profile (BMP) (QWEEK) Timeframe: 20240709 Facility: [facility] - Location: Laboratory Ordered By: Dr. Jordan Ortiz Basic Metabolic Profile (BMP) (QWEEK) Timeframe: 20240716 Facility: [facility] - Location: Laboratory Ordered By: Dr. Jordan Ortiz Basic Metabolic Profile (BMP) (QWEEK) Timeframe: 20240723 Facility: [facility] - Location: Laboratory Ordered By: Dr. Jordan Ortiz CBC W/Diff, Automated (QWEEK) Timeframe: 20240702 Facility: [facility] - Location: Laboratory Ordered By: Dr. Jordan Ortiz CBC W/Diff, Automated (QWEEK) Timeframe: 20240709 Facility: [facility] - Location: Laboratory Ordered By: Dr. Jordan Ortiz CBC W/Diff, Automated (QWEEK) Timeframe: 20240716 Facility: [facility] - Location: Laboratory Ordered By: Dr. Jordan Ortiz CBC W/Diff, Automated (QWEEK) Timeframe: 20240723 Facility: [facility] - Location: Laboratory Ordered By: Dr. Jordan Ortiz Referrals / Follow Up: Donna Will MD [Primary Care Provider] - Within 2 Weeks Wilberto Villafuerte MD [Med Staff - Active Staff] - Within 2 Weeks Disposition Disposition (needs filled in before D/C Order can be placed): Home Health Service Charges/Coding Visit Charges Inpatient E&M: 63452 Disch Hosp >30min
--- NOTE | 2024-06-25 11:42 | PHA.DC.MC.R ---
Pharmacy [facility] Pharmacy Service has performed discharge medication reconciliation and counseling for this patient. The patient's discharge medication list was reviewed for discrepancies and discrepancies were resolved. The patient was counseled on the following discharge medications and changes in medications for homegoing were reviewed. The Reason for Use, instructions for use, and potential side effects were reviewed for all new medications. The patient's questions regarding all of their medications were answered. 1. Prednisone 40 mg PO daily x 5 days 2. Mucinex 1200 mg PO BID 3. Vancomycin 500 mg Q12H through 07/20 The patient was able to verbally demonstrate an understanding of their discharge medications. Medications at Discharge Home Medications finasteride 5 mg tablet 5 mg PO DAILY prostate 08/14/22 tamsulosin 0.4 mg capsule 0.4 mg PO QHS prostate 08/14/22 multivitamin 1 tab PO DAILY vitamin 09/13/22 menthol 0.44 %-zinc oxide 20.6 % topical ointment (Calmoseptine) 1 applic topical 4-6XD PRN skin irritation #113 grams 03/07/23 carvedilol 3.125 mg tablet 3.125 mg PO BID BP #60 tabs 06/05/23 atorvastatin 40 mg tablet 20 mg (1/2 x 40 mg) PO QHS cholesterol #90 tabs 09/18/23 budesonide 1 mg/2 mL suspension for nebulization 1 mg (2 mL) inhalation Q12H wheezing/SOB #120 mL 09/19/23 ipratropium 0.5 mg-albuterol 3 mg (2.5 mg base)/3 mL nebulization soln 3 ml inhalation Q4H PRN PRN SOB &/OR WHEEZING #270 mL 09/19/23 escitalopram oxalate 10 mg tablet 10 mg PO DAILY mood 90 days #90 tabs 10/29/23 mirtazapine 15 mg tablet (Remeron) 7.5 mg (1/2 x 15 mg) PO QHS sleep #90 tabs 10/29/23 insulin aspart U-100 100 unit/mL (3 mL) subcutaneous pen See Protocol subcut ACHS high blood glucose 1 month #15 mL 11/12/23 needle (disp) 32 gauge 32 gauge x /16 (Easy Touch Hypodermic Needle) #100 ea 11/12/23 pen needle, diabetic 32 gauge x 32 #100 ea 12/03/23 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 meter,continuous (FreeStyle Basilio 3 [place]) #1 ea 12/24/23 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 sensor (FreeStyle Basilio 3 Sensor device) #1 ea 12/24/23 furosemide 40 mg tablet (Lasix) 20 mg (1/2 x 40 mg) PO DAILY diuretic #60 tabs 03/08/24 empagliflozin 10 mg tablet (Jardiance) 10 mg PO QDAY diabetes 03/16/24 ferrous sulfate 325 mg (65 mg iron) tablet (FeroSul) 325 mg PO QODAY Supplement 04/05/24 vancomycin 500 mg/100 mL in dextrose 5 % intravenous piggyback 500 mg IV Q12H 26 days #5,200 mL 06/24/24 guaifenesin 1,200 mg tablet, extended release 12 hr (Mucus Relief ER) 1,200 mg PO BID #20 tabs 06/25/24 insulin glargine-yfgn 100 unit/mL (3 mL) subcutaneous pen 20 unit (0.2 mL) subcut BIDCM high blood glucose #15 mL 06/25/24 prednisone 20 mg tablet 40 mg (2 x 20 mg) PO BREAKFAST #10 tabs 06/25/24
--- NOTE | 2024-06-25 13:42 | CASEMGMT ---
Patient has order for discharge. IV ATBs have been arranged through [facility] with delivery this evening. RN CM call [facility] and start of care is planned for 0830 tomorrow morning. RN CM updated discharge plan. RN CM in to update patient regarding IV ATBs and [facility] start of care. Patient denies further needs or help at discharge. Patient states he has portable oxygen for at discharge. Patient had no further questions or concerns.
[2024-06-25 20:09] LABS: Bedside Glucose 188 mg/dL (74-106)
[2024-06-25 20:09] LABS: Bedside Glucose 147 mg/dL (74-106)
== END 2024-06-25 15:10 | disposition home health service (06) | DRG 871 ==
LOC: ED 18:01 → ICU 18:12 → PCU 06-21 12:40
PROVIDERS: Family Medicine; Internal Medicine Infectious Disease; Nurse Practitioner; Admitting Provider Internal Medicine; Emergency Provider Emergency Medicine; PCP Internal Medicine; Visit Provider Internal Medicine
DX: A41.02 Sepsis due to Methicillin resistant Staphylococcus aureus (principal); J96.21 Acute and chronic respiratory failure with hypoxia; J96.22 Acute and chronic respiratory failure with hypercapnia; R65.21 Severe sepsis with septic shock; J15.212 Pneumonia due to Methicillin resistant Staphylococcus aureus; G93.41 Metabolic encephalopathy; E87.20 Acidosis, unspecified; I13.0 Hypertensive heart and chronic kidney disease with heart failure and stage 1 through stage 4 chronic kidney disease, or unspecified chronic kidney disease; J44.0 Chronic obstructive pulmonary disease with (acute) lower respiratory infection; I50.22 Chronic systolic (congestive) heart failure; N13.8 Other obstructive and reflux uropathy; E11.22 Type 2 diabetes mellitus with diabetic chronic kidney disease; N18.32 Chronic kidney disease, stage 3b; M06.9 Rheumatoid arthritis, unspecified; F32.A Depression, unspecified; I48.91 Unspecified atrial fibrillation; I25.5 Ischemic cardiomyopathy; Z79.4 Long term (current) use of insulin; I25.10 Atherosclerotic heart disease of native coronary artery without angina pectoris; K21.9 Gastro-esophageal reflux disease without esophagitis; E78.00 Pure hypercholesterolemia, unspecified; E11.65 Type 2 diabetes mellitus with hyperglycemia; Z66 Do not resuscitate; Z83.3 Family history of diabetes mellitus; Z86.718 Personal history of other venous thrombosis and embolism; Z79.51 Long term (current) use of inhaled steroids; Z95.5 Presence of coronary angioplasty implant and graft; Z86.16 Personal history of COVID-19; Z79.84 Long term (current) use of oral hypoglycemic drugs; Z82.5 Family history of asthma and other chronic lower respiratory diseases; Z87.891 Personal history of nicotine dependence; N40.1 Benign prostatic hyperplasia with lower urinary tract symptoms; Z85.72 Personal history of non-Hodgkin lymphomas; Z99.81 Dependence on supplemental oxygen
CPT/HCPCS: 36415; 36569; 36600; 71045; 80048; 80053; 80202; 81001; 82803; 82962; 83605; 83735; 83880; 84100; 84145; 85025; 85610; 85730; 86850; 86900; 86901; 87040; 87070; 87077; 87086; 87088; 87149; 87186; 87205; 87449; 87631; 87633; 93005; 93306; 93971; 94002; 94003; 94640; 94668; 94762; 97161; 97166; 99285; 99406; Q9957; A4216; C8929

== ENCOUNTER 2024-06-29 09:43 | Outpatient (CLI) | payer MEDICARE, SELFPAY | END 2024-06-29 23:59 | disposition home or self-care (01) | LOC: MEDOUTP 09:44 | PROVIDERS: PCP Internal Medicine; Referring Provider Internal Medicine Infectious Disease; Visit Provider Internal Medicine Infectious Disease | DX: A41.02 Sepsis due to Methicillin resistant Staphylococcus aureus (principal) | CPT/HCPCS: 96523; A4216 ==

== ENCOUNTER → 2024-07-05 | Outpatient (CLI) | payer MEDICARE, SELFPAY ==
[2024-07-05 13:59] LABS: Hematocrit 28.2 % (40-54); Hemoglobin 8.4 g/dL (13.0-16.5); Mean Corp Hgb Conc 29.8 g/dL (32-36); Mean Corpuscular Hgb 29.1 pg (27.0-32.0); Mean Corpuscular Volume 97.6 fL (80-94); Mean Platelet Vol. 11.1 fl (6.2-12.0); POSITIVE MORPHOLOGY YES; Platelet Count 263 K/mm3 (150-450); RBC Distribution Width CV 21.1 % (11.6-14.6); RBC Distribution Width SD 75.3 fl (35.1-43.9); Red Blood Count 2.89 M/mm3 (4.6-6.2); White Blood Count 11.6 K/mm3 (4.4-11.0)
[2024-07-05 14:02] LABS: Scan Indicated on CBC? Y/N YES- FLAGS NOTED
[2024-07-05 14:22] LABS: Vancomycin, Trough Level 20.4 ug/mL (5.0-15.0)
[2024-07-05 14:24] LABS: Anion Gap 10 (5-15); BUN 35 mg/dL (4-19); Calcium,Total 8.8 mg/dL (7.6-11.0); Carbon Dioxide 29.6 mmol/L (21.0-32.0); Chloride 107 mmol/L (98-108); Creatinine, Serum 1.29 mg/dL (0.70-1.20); EST Glomerular Filtration Rate 58 (>60); Glucose 158 mg/dL (70-99); Potassium 4.5 mmol/L (3.3-5.1); Sodium Level 146 mmol/L (133-145)
== END | disposition home or self-care (01) ==
LOC: LABSPEC 09:33 → HHLAB 13:49
PROVIDERS: PCP Internal Medicine; Referring Provider Internal Medicine Infectious Disease; Visit Provider Internal Medicine Infectious Disease
DX: J96.21 Acute and chronic respiratory failure with hypoxia (principal)
CPT/HCPCS: 80048; 80202; 85027

== ENCOUNTER 2024-07-08 12:28 | Emergency (ER) | payer MEDICARE, SELFPAY ==
[2024-07-08] VITALS (8 sets, daily range): BP systolic 101–140; BP diastolic 64–93; PULSE 77–83; RESP 14–72; TEMP 36.6–36.8; O2SAT 95–100
--- NOTE | 2024-07-08 13:06 | EKG12_ITS ---
Test Reason : SOB Blood Pressure : */* mmHG Vent. Rate : 79 BPM Atrial Rate : * BPM P-R Int : * ms QRS Dur : 102 ms QT Int : 388 ms P-R-T Axes : * 47 25 degrees QTcB Int : 444 ms Atrial fibrillation Nonspecific T wave abnormality Abnormal ECG Confirmed by IAM TEIXEIRA, HAVEN ([id number]), editorial clerk APOLONIA GUERRERO ([id number]) on 07/12/2024 8:39:05 AM Referred By: Confirmed By: HAVEN VITALE MD
--- NOTE | 2024-07-08 13:12 | EX.ED.DYSGE1 ---
HPI History of Present Illness Chief Complaint: General Illness Informant: patient Onset/Context/Timing Onset: Days (2) Context: Gradual Onset Timing: Continuous Quality: Weakness Location: Generalized Worsened by: Ambulation Relieved by: Nothing Narrative Narrative: Patient presents with generalized weakness that has been getting worse over the past 2 days. Patient states he feels better today. Patient has a history of MRSA infection and has blood. Patient is on vancomycin. Patient states that his infectious disease doctor told him to come to the emergency department. Family states patient's dose of vancomycin has been increased recently. Patient admits to some subjective chills. Patient admits to some shortness of breath and cough. Patient states his weakness is worse with ambulation. [facility] Medical History MRSA (methicillin resistant staph aureus) culture positive Ischemic cardiomyopathy COVID-19 Lethargic COPD with acute exacerbation Elevated troponin I level LUIS (acute kidney injury) Hypoxemia Chronic kidney disease (CKD), stage III (moderate) Acute hypoxic on chronic hypercapnic respiratory failure FTT (failure to thrive) in adult Former smoker On home oxygen therapy Bleeding tendency Ulcer High cholesterol History of stress test HTN (hypertension) Tobacco abuse History of pulmonary embolus (PE) (04/30/21) Essential hypertension Type 2 diabetes mellitus DVT (deep venous thrombosis) (05/01/21) Rhinovirus Acute respiratory failure with hypoxia Physical debility COVID-19 in immunocompromised patient Nicotine dependence, cigarettes, uncomplicated Diabetes Arthritis Cancer COPD (chronic obstructive pulmonary disease) History of basal cell carcinoma Atherosclerosis of coronary artery of [place] heart without angina pectoris Pneumonia Non-Hodgkin lymphoma History of pilonidal cyst Allergic rhinitis 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 complications Gastritis Colon polyp Obesity Asthma Chronic bronchitis Positive colorectal cancer screening using Cologuard test RA (rheumatoid arthritis) Home Medications ?Medication ?Instructions ?Recorded ?Last Taken ?Type finasteride 5 mg tablet 5 mg PO DAILY prostate 08/14/22 07/07/24 History tamsulosin 0.4 mg capsule 0.4 mg PO QHS prostate 08/14/22 07/07/24 History multivitamin 1 tab PO DAILY vitamin 09/13/22 07/07/24 History carvedilol 3.125 mg tablet 3.125 mg PO BID BP #60 tabs 06/05/23 07/07/24 Rx atorvastatin 40 mg tablet 20 mg (1/2 x 40 mg) PO QHS 09/18/23 07/07/24 Rx cholesterol #90 tabs budesonide 1 mg/2 mL suspension 1 mg (2 mL) inhalation Q12H 09/19/23 07/07/24 Rx for nebulization wheezing/SOB #120 mL ipratropium 0.5 mg-albuterol 3 mg 3 ml inhalation Q4H PRN PRN SOB 09/19/23 07/07/24 Rx (2.5 mg base)/3 mL nebulization &/OR WHEEZING #270 mL soln escitalopram oxalate 10 mg tablet 10 mg PO DAILY mood 90 days #90 10/29/23 07/07/24 Rx tabs mirtazapine 15 mg tablet (Remeron) 7.5 mg (1/2 x 15 mg) PO QHS sleep 10/29/23 07/07/24 Rx #90 tabs insulin aspart U-100 100 unit/mL See Protocol subcut ACHS high 11/12/23 07/07/24 Rx (3 mL) subcutaneous pen blood glucose 1 month #15 mL needle (disp) 32 gauge 32 gauge x #100 ea 11/12/23 Unknown Rx 5/16 (Easy Touch Hypodermic Needle) pen needle, diabetic 32 gauge x #100 ea 12/03/23 Unknown Rx 5/32 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 meter,continuous #1 ea 12/24/23 Unknown Rx (FreeStyle Basilio 3 [place]) 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 sensor (FreeStyle #1 ea 12/24/23 Unknown Rx Basilio 3 Sensor device) furosemide 40 mg tablet (Lasix) 20 mg (1/2 x 40 mg) PO DAILY 03/08/24 07/07/24 Rx diuretic #60 tabs empagliflozin 10 mg tablet 10 mg PO QDAY diabetes 03/16/24 07/07/24 History (Jardiance) ferrous sulfate 325 mg (65 mg 325 mg PO QODAY Supplement 04/05/24 07/07/24 History iron) tablet (FeroSul) vancomycin 500 mg/100 mL in 500 mg IV Q12H 26 days #5,200 mL 06/24/24 07/08/24 Rx dextrose 5 % intravenous piggyback insulin glargine-yfgn 100 unit/mL 20 unit (0.2 mL) subcut BIDCM high 06/25/24 07/08/24 Rx (3 mL) subcutaneous pen blood glucose #15 mL cholecalciferol (vitamin D3) 50 50 mcg PO QDAY 06/28/24 07/07/24 History mcg (2,000 unit) capsule pantoprazole 40 mg tablet,delayed 40 mg PO BID 06/28/24 07/07/24 History release (Protonix) amoxicillin 875 mg-potassium 875 mg PO Q12H #10 TABLETS 07/08/24 Unknown Rx clavulanate 125 mg tablet Allergy/AdvReac Type Severity Reaction Status Date / Time No Known Allergies Allergy Verified 07/08/24 12:31 Family History Father Arthritis Bleeding disorder Hypertension Kidney disease Cancer Skin Anemia blood clots Emphysema lung Mother Colon cancer Cancer Lung Cancer Diabetes Brother Thyroid disorder Surgical History History of embolic filter insertion History of heart artery stent Status post cardiac surgery H/O cardiac catheterization Presence of IVC filter (04/2021) History of coronary artery stent placement (10/22/13) History of thymectomy Hx of lymph node excision History of excision of pilonidal cyst Social History household members: spouse Smoking Status: Current some day smoker tobacco type: cigarettes Tobacco: How many years used: 55 second hand exposure: Yes alcohol intake: current alcohol intake frequency: holidays/special occasions only substance use type: does not use caffeine: Yes Type: coffee Number of servings: 3 what type of physical activity do you participate in: none frequency: does not exercise seatbelt use: always ROS ROS ED Constitutional Constitutional ED: Reports chills and subjective; Denies fever(s) Eyes Eyes: Denies blurry vision or change in vision ENT ENT ED: Denies rhinorrhea or sore throat Cardiovascular Cardiovascular: Denies chest pain or palpitations Respiratory/Chest Respiratory/Chest: Reports cough and dyspnea Gastrointestinal Gastrointestinal: Denies nausea or vomiting Genitourinary Genitourinary ED: Denies dysuria or hematuria Musculoskeletal Musculoskeletal: Denies back pain or neck pain Integumentary Reports rash; Denies abscess Neurologic Neurologic: Denies headache(s) or weakness Allergic/Immunologic Allergic/Immunologic ED: Denies mouth swelling or urticaria EXAM Physical Exam Const Vital Signs: 07/08/24 12:29 07/08/24 12:42 07/08/24 12:44 Temperature 98.2 F 98 F Temperature Source Oral Temporal Pulse Rate 82 83 Respiratory Rate 20 H 17 Respiratory Effort Short of Breath Labored Respiratory Pattern Normal Blood Pressure 117/74 129/64 H Blood Pressure Mean 88 85 Pulse Ox 95 98 Oxygen Delivery Method Nasal Cannula Nasal Cannula Oxygen Flow Rate (L/min) 4 4 07/08/24 13:28 07/08/24 14:00 07/08/24 14:28 Temperature 97.9 F 98 F Temperature Source Temporal Temporal Pulse Rate 77 79 78 Respiratory Rate 14 17 72 H Respiratory Effort Respiratory Pattern Blood Pressure 101/68 140/65 H 138/93 H Blood Pressure Mean 79 90 108 Pulse Ox 100 97 99 Oxygen Delivery Method Nasal Cannula Nasal Cannula Nasal Cannula Oxygen Flow Rate (L/min) 4 4 4 07/08/24 15:00 Temperature 98 F Temperature Source Temporal Pulse Rate 78 Respiratory Rate 16 Respiratory Effort Respiratory Pattern Blood Pressure 128/82 H Blood Pressure Mean 97 Pulse Ox 97 Oxygen Delivery Method Nasal Cannula Oxygen Flow Rate (L/min) 4 Positive well nourished and well developed General Appearance ED: well developed and NAD HEENT Reports moist mucous membranes Neck supple and no JVD Resp normal respiratory effort and clear to auscultation bilaterally Cardio regular rate and regular rhythm Rhythm: abnormal rhythm ectopic beats GI non-tender and non-distended Palpation: soft Neuro oriented x3, CN's II-XII intact bilaterally and no sensory deficits noted Motor Exam: strength 5/5 throughout Psych mental status grossly normal MDM MDM MDM Narrative Medical decision making narrative: Differential diagnosis includes sepsis, pneumonia, bronchitis, anemia, electrolyte abnormality, cardiac dysrhythmia, cardiac ischemia, and coagulopathy. EKG will be obtained to assess for cardiac dysrhythmia and cardiac ischemia. Chest x-ray will be obtained to assess for pneumonia and bronchitis. CBC will be obtained to assess for leukocytosis and anemia. Comprehensive metabolic profile will be obtained to assess for hepatic function, renal function, and electrolyte abnormality. Urinalysis will be obtained to assess for urinary tract infection and hematuria. PT was INR PTT will be obtained to assess for coagulopathy. Serum lactate will be obtained to assess for sepsis. History & Record Review Additional record(s) reviewed:: Prior outpatient record and Prior labs Lab Data Attestation: I reviewed the patient's lab results. Lab results narrative: CBC was reviewed. Hemoglobin was low at 7.2 and hematocrit was 23.2. The remainder was within normal limits. Comprehensive metabolic profile was reviewed. BUN was 39 and creatinine was 1.28. Glucose was slightly elevated at 164. The remainder was within normal limits. Urinalysis was reviewed. Leukocyte Estrace was 500 with 25-50 white blood cells and 1+ bacteria. Labs: Laboratory Results - last 24 hr 07/08/24 07/08/24 13:25 14:13 WBC 8.8 RBC 2.43 L Hgb 7.2 L Hct 23.2 L MCV 95.5 H MCH 29.6 MCHC 31.0 L RDW Std Deviation 70.7 H RDW Coeff of Rafael 20.1 H Plt Count 162 MPV 11.9 Immature Gran % (Auto) 1.500 H Neut % (Auto) 71.7 H Lymph % (Auto) 15.2 L [place] % (Auto) 9.4 Eos % (Auto) 2.0 Baso % (Auto) 0.2 Absolute Neuts (auto) 6.3 Absolute Lymphs (auto) 1.34 Nucleated RBC % 0.2 PT 14.2 INR 1.1 APTT 31.3 Sodium 144 Potassium 3.8 Chloride 106 Carbon Dioxide 27.6 Anion Gap 11 BUN 39 H Creatinine 1.28 H Est GFR (MDRD) Non-Af 59 L BUN/Creatinine Ratio 30.5 H Glucose 164 H Lactic Acid 1.6 Calcium 8.5 Total Bilirubin 0.35 AST 23 ALT 38 Alkaline Phosphatase 122 Total Protein 6.1 Albumin 3.4 Globulin 2.7 Albumin/Globulin Ratio 1.3 Urine Color Yellow Urine Clarity Sl. Cloudy Urine pH 6.0 Ur Specific [place] 1.015 Urine Protein 30 H Urine Glucose (UA) 1000 H Urine Ketones Negative Urine Occult Blood 25 H Urine Nitrite Negative Urine Bilirubin Negative Urine Urobilinogen Normal Ur Leukocyte Esterase 500 H Urine RBC 0-5 SEEN Urine WBC 25-50 SEEN Ur Squamous Epith Cells 0-5 SEEN Urine Bacteria 1+ Urine Mucus 0 SEEN Urine Yeast 2+ Radiography Chest X-Ray - ED: 2 View, Read by ED Physician, Read by Radiologist, Right Infiltrate and Right Effusion Diagnostic Testing: Clinical Impression(s) from Imaging Studies Chest X-Ray 05/15/25 14:08 IMPRESSION: Small right pleural effusion with the right basilar atelectasis and/or infiltrate. There has been progression as compared to prior study. Reading Location: [facility] PA and lateral chest x-ray was obtained. There are 2 views. On my independent interpretation, lung luu showed a right pleural effusion with right basilar atelectasis and/or infiltrate. There is normal cardiac silhouette. Bony thorax is normal. Radiologist also interpreted the x-ray and agrees. EKG Initial EKG: Attestation: I personally reviewed and interpreted this EKG as follows: Interpretation: Sinus Rhythm (With frequent PACs) and Non-Specific ST Changes Comments: EKG was obtained. On my independent interpretation, it shows a normal sinus rhythm with frequent PACs. GA interval was approximately 160 ms. QRS interval was normal at 102 ms. QTc interval was 444 ms. Gilbert was normal. There are nonspecific ST-T wave changes noted. Prior EKG tracings: available for review Prior: Unchanged (06/22/2024) Treatment and Re-Evaluation :: Patient was advised of this findings. Patient was given a dose of Rocephin here. Case was discussed with Dr. Villafuerte. He feels the patient can be discharged home and treated as an outpatient. He recommended continuing the vancomycin for the MRSA infection. He recommended starting the patient on Augmentin for the urinary tract infection. Patient and family are agreeable with this. Discharge Plan Triage Chief Complaint: General Illness ED Provider: Marco Hoffman Dx/Rx/DC Orders Clinical Impression: Urinary tract infection, Type 2 diabetes mellitus, History of COPD Instructions: ED Bladder Infection, Male (Adult) Prescriptions: New amoxicillin-pot clavulanate 875-125 mg tablet 875 mg PO Q12H Qty: 10 0RF No Action multivitamin Tablet 1 tab PO DAILY tamsulosin 0.4 mg capsule 0.4 mg PO QHS finasteride 5 mg tablet 5 mg PO DAILY ipratropium-albuterol 0.5 mg-3 mg(2.5 mg base)/3 mL solution for nebulization 3 ml inhalation Q4H PRN PRN (Reason: SOB &/OR WHEEZING) Qty: 270 11RF budesonide 1 mg/2 mL suspension for nebulization 1 mg inhalation Q12H Qty: 120 11RF (DME) pen needle, diabetic 32 gauge x 5/32 needle See Rx Instructions .ROUTE .MEDSUPPLY Qty: 100 5RF Rx Instructions: As directed Jardiance 10 mg tablet 10 mg PO QDAY ferrous sulfate [FeroSul] 325 mg (65 mg iron) Tablet 325 mg PO QODAY (DME) Easy Touch Hypodermic Needle 32 gauge x 5/16 needle See Rx Instructions .Route Qty: 100 0RF Rx Instructions: As directed insulin aspart U-100 100 unit/mL (3 mL) insulin pen See Protocol subcut ACHS 30 Days Qty: 15 0RF Protocol: 3. Sliding Scale Insulin Med Dosing Condition: 150-189 mg/dl = 1 unit Condition: 190-229 mg/dl = 2 units Condition: 230-269 mg/dl = 3 units Condition: 270-309 mg/dl = 4 units Condition: 310-349 mg/dl = 5 units Condition: 350-399 mg/dl = 6 units Condition: 400-449 mg/dl = 7 units Condition: Greater than 449 call physician Protocol Text: Suggested for: - Patients on Total Daily Insulin Dose of 37-55 units - Obese, infected, or steroid patients MEDIUM DOSING ALGORITHIM vancomycin in dextrose 5 % 500 mg/100 mL Piggyback 500 mg IV Q12H 26 Days Qty: 5200 0RF Rx Instructions: stop date 07/20/24. Dx: MRSA bacteremia. Weekly bmp, cbc, and vanc trough. Fax to [phone]. Routine picc care per protocol. insulin glargine-yfgn 100 unit/mL (3 mL) insulin pen 20 unit subcut BIDCM Qty: 15 1RF carvedilol 3.125 mg tablet 3.125 mg PO BID Qty: 60 11RF Rx Instructions: must administer with a meal/food atorvastatin 40 mg tablet 20 mg PO QHS Qty: 90 3RF escitalopram oxalate 10 mg tablet 10 mg PO DAILY 90 Days Qty: 90 3RF mirtazapine [Remeron] 15 mg tablet 7.5 mg PO QHS Qty: 90 3RF (DME) FreeStyle Basilio 3 Sensor Device See Rx Instructions .Route Qty: 1 5RF Rx Instructions: As directed (DME) FreeStyle Basilio 3 [place] Misc See Rx Instructions .Route Qty: 1 0RF Rx Instructions: As directed furosemide [Lasix] 40 mg tablet 20 mg PO DAILY Qty: 60 1RF pantoprazole [Protonix] 40 mg tablet,delayed release (DR/EC) 40 mg PO BID cholecalciferol (vitamin D3) 50 mcg (2,000 unit) capsule 50 mcg PO QDAY Primary Care Provider: Donna Will Referrals: Donna Will MD [Primary Care Provider] - 5-7 Days Wilberto Villafuerte MD [Med Staff - Active Staff] - 5-7 Days Print Language: [place] Disposition Disposition: Home, Self Care
--- NOTE | 2024-07-08 13:31 | ED.RN ---
PT ARRIVED WITH PICC IN UPPER RT ARM. PICC FLUSHES AND BLOOD DRAWN FROM PICC.
[2024-07-08 13:47] LABS: Absolute Lymphocyte Count 1.34 X10^3/uL (0.83-4.51); Absolute Neutrophil Count 6.3 X10^3/uL (2.0-7.7); Basophil# 0.02 X10^3/uL; Basophil% 0.2 % (0-1); Eosinophil# 0.18 X10^3/uL; Hematocrit 23.2 % (40-54); Hemoglobin 7.2 g/dL (13.0-16.5); Lymphocyte # 1.34 X10^3/ul (0.83-4.51); Lymphocyte % 15.2 % (19-41); Mean Corpuscular Hgb 29.6 pg (27.0-32.0); Mean Corpuscular Volume 95.5 fL (80-94); Mean Platelet Vol. 11.9 fl (6.2-12.0); Monocyte# 0.83 X10^3/uL; Monocyte% 9.4 % (0-10); NRBC Flagged by Analyzer 0.2 % (0-5); Neutrophil # 6.34 X10^3/uL (2.7-7.7); Neutrophil % 71.7 % (47-70); POSITIVE MORPHOLOGY YES; Platelet Count 162 K/mm3 (150-450); RBC Distribution Width CV 20.1 % (11.6-14.6); RBC Distribution Width SD 70.7 fl (35.1-43.9); Red Blood Count 2.43 M/mm3 (4.6-6.2); White Blood Count 8.8 K/mm3 (4.4-11.0)
[2024-07-08 14:02] LABS: Differential Indicated SCAN CRITERIA MET
--- NOTE | 2024-07-08 14:08 | RAD_ITS ---
PROCEDURE: CHEST PA AND LATERAL 07/08/2024 REASON FOR EXAM: DYSPNEA TECHNIQUE: Frontal and lateral views of the chest. COMPARISON: June 21, 2024. FINDINGS: Hardware: A right-sided PICC line catheter is seen with the tip at the junction of the superior vena cava and right atrium. EKG electrodes are seen. Heart: Prior midline sternotomy and coronary artery bypass surgery. Mediastinum: Calcification of the aortic arch. Lungs: Small right pleural effusion with right basilar atelectasis and/or infiltrate. Bones: Degenerative changes are identified within the thoracic spine. RAD/Chest PA and Lateral IMPRESSION: Small right pleural effusion with the right basilar atelectasis and/or infiltra te. There has been progression as compared to prior study. Reading Location: [id number]
[2024-07-08 14:18] LABS: ALB/GLOB Ratio 1.3 RATIO (0.9-2.4); AST(SGOT) 23 U/L (<=37); Alanine Aminotransfer ALT/SGPT 38 U/L (<=46); Albumin, Serum 3.4 g/dL (3.4-4.8); Alkaline Phosphatase 122 U/L (40-129); Anion Gap 11 (5-15); BUN 39 mg/dL (4-19); BUN/Creat Ratio 30.5 RATIO (10-20); Calcium,Total 8.5 mg/dL (7.6-11.0); Carbon Dioxide 27.6 mmol/L (21.0-32.0); Chloride 106 mmol/L (98-108); Creatinine, Serum 1.28 mg/dL (0.70-1.20); EST Glomerular Filtration Rate 59 (>60); Globulin 2.7 g/dL (2.2-4.2); Glucose 164 mg/dL (70-99); Lactic Acid 1.6 mmol/L (0.0-2.0); Potassium 3.8 mmol/L (3.3-5.1); Protein, Total 6.1 g/dL (5.9-8.4); Sodium Level 144 mmol/L (133-145); Total Bilirubin 0.35 mg/dL (0.00-1.30)
[2024-07-08 14:39] LABS: International Normalized Ratio 1.1; Prothrombin Time (Protime)PT. 14.2 SECONDS (11.7-14.9)
[2024-07-08 14:39] LABS: Mucous, Urine 0 SEEN /hpf (<or=2+)
[2024-07-08 14:40] LABS: Partial Thromboplast Time 31.3 Seconds (24.1-36.2)
[2024-07-08 14:43] LABS: Color, Urine Yellow (Yellow); Glucose, Dipstick 1000 mg/dl (Normal); Ketone-Dipstick Negative (Negative); Leukocyte Esterase-Dipstick 500 /ul (Negative); Nitrite-Dipstick Negative (Negative); Occult Blood-Urine 25 /ul (Negative); Protein-Dipstick 30 mg/dl (Negative); Specific Gravity, Urine 1.015 (1.002-1.030); Urine Bilirubin Dipstick Negative (Negative); Urine Clarity Sl. Cloudy (Clear); Urine Urobilinogen Normal (Normal)
[2024-07-08 14:52] LABS: Bacteria 1+ /hpf (None Seen); Squamous Epithelial Cells - UA 0-5 SEEN /hpf (0-5); White Blood Cells 25-50 SEEN /hpf (0-5)
[2024-07-08 14:53] LABS: Red Blood Cells-Urine 0-5 SEEN /hpf (0-5)
[2024-07-08 14:54] LABS: Yeast-Urine 2+ /hpf (None Seen)
[2024-07-08] MEDS: Ceftriaxone 1 GM/50 ML BAG IV (16:15)
[2024-07-08 18:21] LABS: Anisocytosis 2+
== END 2024-07-08 17:30 | disposition home or self-care (01) ==
PROVIDERS: Emergency Provider Emergency Medicine; PCP Internal Medicine; Visit Provider Emergency Medicine
DX: N39.0 Urinary tract infection, site not specified (principal); J44.9 Chronic obstructive pulmonary disease, unspecified; E11.22 Type 2 diabetes mellitus with diabetic chronic kidney disease; Z79.4 Long term (current) use of insulin; N18.30 Chronic kidney disease, stage 3 unspecified; E78.00 Pure hypercholesterolemia, unspecified; I25.10 Atherosclerotic heart disease of native coronary artery without angina pectoris; I12.9 Hypertensive chronic kidney disease with stage 1 through stage 4 chronic kidney disease, or unspecified chronic kidney disease; Z86.14 Personal history of Methicillin resistant Staphylococcus aureus infection; Z79.899 Other long term (current) drug therapy; F17.210 Nicotine dependence, cigarettes, uncomplicated; R06.00 Dyspnea, unspecified
CPT/HCPCS: 71046; 80053; 81001; 83605; 85025; 85610; 85730; 87040; 93005; 96365; 99284; A4216

== ENCOUNTER → 2024-07-12 | Outpatient (CLI) | payer MEDICARE, SELFPAY ==
[2024-07-12 12:30] LABS: Hematocrit 24.5 % (40-54); Hemoglobin 7.4 g/dL (13.0-16.5); Mean Corp Hgb Conc 30.2 g/dL (32-36); Mean Corpuscular Hgb 29.5 pg (27.0-32.0); Mean Corpuscular Volume 97.6 fL (80-94); Mean Platelet Vol. 12.5 fl (6.2-12.0); POSITIVE MORPHOLOGY YES; Platelet Count 199 K/mm3 (150-450); RBC Distribution Width CV 19.7 % (11.6-14.6); RBC Distribution Width SD 69.9 fl (35.1-43.9); Red Blood Count 2.51 M/mm3 (4.6-6.2); White Blood Count 7.2 K/mm3 (4.4-11.0)
[2024-07-12 12:37] LABS: Scan Indicated on CBC? Y/N YES- FLAGS NOTED
[2024-07-12 13:36] LABS: Anion Gap 9 (5-15); BUN 38 mg/dL (4-19); BUN/Creat Ratio 27.1 RATIO (10-20); Calcium,Total 8.8 mg/dL (7.6-11.0); Carbon Dioxide 29.3 mmol/L (21.0-32.0); Chloride 105 mmol/L (98-108); Creatinine, Serum 1.41 mg/dL (0.70-1.20); EST Glomerular Filtration Rate 52 (>60); Glucose 363 mg/dL (70-99); Potassium 5.3 mmol/L (3.3-5.1); Sodium Level 144 mmol/L (133-145)
[2024-07-12 13:40] LABS: Vancomycin, Trough Level 27.7 ug/mL (5.0-15.0)
== END | disposition home or self-care (01) ==
LOC: LABSPEC 10:12
PROVIDERS: PCP Internal Medicine; Referring Provider Nurse Practitioner Family; Visit Provider Nurse Practitioner Family
DX: J96.21 Acute and chronic respiratory failure with hypoxia (principal)
CPT/HCPCS: 80048; 80202; 85027

== ENCOUNTER → 2024-07-12 | Outpatient (CLI) | payer MEDICARE, SELFPAY | END | disposition home or self-care (01) | LOC: PSN 09:45 | PROVIDERS: PCP Internal Medicine; Referring Provider Nurse Practitioner Family; Visit Provider Nurse Practitioner Family | DX: J96.21 Acute and chronic respiratory failure with hypoxia (principal); J44.9 Chronic obstructive pulmonary disease, unspecified | CPT/HCPCS: 80048; 80202; 85027; 94060; 94726; 94729 ==

== ENCOUNTER 2024-07-14 12:30 | Outpatient (RCR) | payer MEDICARE, SELFPAY ==
[2024-06-28 11:48] LABS: Hematocrit 28.7 % (40-54); Hemoglobin 8.8 g/dL (13.0-16.5); Mean Corp Hgb Conc 30.7 g/dL (32-36); Mean Corpuscular Volume 94.7 fL (80-94); Mean Platelet Vol. 11.6 fl (6.2-12.0); POSITIVE MORPHOLOGY YES; Platelet Count 309 K/mm3 (150-450); RBC Distribution Width CV 20.7 % (11.6-14.6); RBC Distribution Width SD 71.3 fl (35.1-43.9); Red Blood Count 3.03 M/mm3 (4.6-6.2); White Blood Count 15.6 K/mm3 (4.4-11.0)
[2024-06-28 11:58] LABS: Scan Indicated on CBC? Y/N YES- FLAGS NOTED
[2024-06-28 12:20] LABS: Vancomycin, Trough Level 18.5 ug/mL (5.0-15.0)
[2024-06-28 12:26] LABS: Anion Gap 8 (5-15); BUN 38 mg/dL (4-19); BUN/Creat Ratio 33.7 RATIO (10-20); Calcium,Total 8.8 mg/dL (7.6-11.0); Carbon Dioxide 30.4 mmol/L (21.0-32.0); Chloride 108 mmol/L (98-108); Creatinine, Serum 1.14 mg/dL (0.70-1.20); EST Glomerular Filtration Rate 67 (>60); Glucose 112 mg/dL (70-99); Potassium 4.2 mmol/L (3.3-5.1); Sodium Level 146 mmol/L (133-145)
[2024-07-14 13:55] LABS: Vancomycin, Trough Level 21.5 ug/mL (5.0-15.0)
[2024-07-15 11:09] LABS: Anion Gap 10 (5-15); BUN 46 mg/dL (4-19); Calcium,Total 8.6 mg/dL (7.6-11.0); Carbon Dioxide 29.3 mmol/L (21.0-32.0); Chloride 104 mmol/L (98-108); Creatinine, Serum 1.65 mg/dL (0.70-1.20); EST Glomerular Filtration Rate 43 (>60); Glucose 135 mg/dL (70-99); Potassium 5.1 mmol/L (3.3-5.1); Sodium Level 143 mmol/L (133-145)
== END 2024-07-14 18:00 | disposition home or self-care (01) ==
LOC: HHLAB 12:30
PROVIDERS: PCP Internal Medicine; Referring Provider Internal Medicine Infectious Disease; Visit Provider Internal Medicine Infectious Disease
DX: J96.21 Acute and chronic respiratory failure with hypoxia (principal); A41.02 Sepsis due to Methicillin resistant Staphylococcus aureus; G93.41 Metabolic encephalopathy
CPT/HCPCS: 80048; 80202; 85027

== ENCOUNTER → 2024-07-21 | Outpatient (CLI) | payer MEDICARE, SELFPAY ==
[2024-07-21 12:33] LABS: Hematocrit 23.3 % (40-54); Mean Corpuscular Hgb 30.3 pg (27.0-32.0); Mean Corpuscular Volume 100.9 fL (80-94); Mean Platelet Vol. 11.7 fl (6.2-12.0); Platelet Count 235 K/mm3 (150-450); RBC Distribution Width CV 20.5 % (11.6-14.6); RBC Distribution Width SD 75.2 fl (35.1-43.9); Red Blood Count 2.31 M/mm3 (4.6-6.2); White Blood Count 8.4 K/mm3 (4.4-11.0)
[2024-07-21 12:54] LABS: Anion Gap 7 (5-15); BUN 33 mg/dL (4-19); BUN/Creat Ratio 25.7 RATIO (10-20); Calcium,Total 8.7 mg/dL (7.6-11.0); Carbon Dioxide 31.9 mmol/L (21.0-32.0); Chloride 105 mmol/L (98-108); Creatinine, Serum 1.27 mg/dL (0.70-1.20); EST Glomerular Filtration Rate 59 (>60); Glucose 178 mg/dL (70-99); Potassium 4.9 mmol/L (3.3-5.1); Sodium Level 144 mmol/L (133-145)
[2024-07-21 13:00] LABS: Vancomycin, Trough Level 16.3 ug/mL (5.0-15.0)
[2024-07-21 13:07] LABS: Scan Indicated on CBC? Y/N YES- FLAGS NOTED
[2024-07-21 13:08] LABS: POSITIVE MORPHOLOGY YES
== END | disposition home or self-care (01) ==
LOC: LABSPEC 10:47
PROVIDERS: PCP Internal Medicine; Visit Provider Internal Medicine Infectious Disease
DX: J96.21 Acute and chronic respiratory failure with hypoxia (principal)
CPT/HCPCS: 80048; 80202; 85027

== ENCOUNTER → 2024-07-23 | Outpatient (CLI) | payer MEDICARE, SELFPAY | END | disposition home or self-care (01) | LOC: MTLAB 13:19 | PROVIDERS: PCP Internal Medicine; Referring Provider Internal Medicine Medical Oncology; Visit Provider Internal Medicine Medical Oncology | DX: D64.9 Anemia, unspecified (principal) | CPT/HCPCS: 82274 ==

== ENCOUNTER 2024-08-21 10:25 | Inpatient (IN) | payer MEDICARE, SELFPAY ==
[2024-08-21] VITALS (24 sets, daily range): BP systolic 119–148; BP diastolic 7–76; PULSE 64–82; RESP 14–30; TEMP 36.4–36.9; O2SAT 88–100; BMI 31.4; BMI 31.5
--- NOTE | 2024-08-21 10:36 | EKG12_ITS ---
Test Reason : SOB Blood Pressure : */* mmHG Vent. Rate : 82 BPM Atrial Rate : * BPM P-R Int : * ms QRS Dur : 88 ms QT Int : 376 ms P-R-T Axes : * 42 51 degrees QTcB Int : 439 ms Accelerated Junctional rhythm Abnormal ECG Confirmed by IAM TEIXEIRA, HAVEN ([id number]), photographic editor APOLONIA GUERRERO ([id number]) on 08/24/2024 6:38:19 AM Referred By: Confirmed By: HAVEN VITALE MD
--- NOTE | 2024-08-21 10:49 | EX.ED.DYSGE1 ---
HPI History of Present Illness Chief Complaint: Shortness of Breath Narrative Narrative: Patient is a 73-year-old male past medical history of chronic kidney disease stage III, acute on chronic hypoxic respiratory failure chronically on 4 L nasal cannula, hypertension, PE according the record history of filter in place, CHF who presented to the emergency department chief complaint of shortness of breath. Patient states that this morning when he woke up he tried to get up out of bed and walked very short distance and was severely short of breath therefore he called EMS to have him brought here for further evaluation management. Patient does note that he had some difficulty sleeping last night as he could not sit high enough in bed in order to provide relief to help him breathe. He states that he is chronically on oral steroids and he states that when he gets sick he is told that he should increase his dose of steroids. He states that he does not know why he is on chronic steroids. Per EMS he had significant increased work of breathing therefore they gave him 2 DuoNebs and route. They noted that he was 90% on his 4 L nasal cannula. PFSH PFS Medical History MRSA (methicillin resistant staph aureus) culture positive Ischemic cardiomyopathy COVID-19 Lethargic COPD with acute exacerbation Elevated troponin I level LUIS (acute kidney injury) Hypoxemia Chronic kidney disease (CKD), stage III (moderate) Acute hypoxic on chronic hypercapnic respiratory failure FTT (failure to thrive) in adult Former smoker On home oxygen therapy Bleeding tendency Ulcer High cholesterol History of stress test HTN (hypertension) Tobacco abuse History of pulmonary embolus (PE) (04/30/21) Essential hypertension Type 2 diabetes mellitus DVT (deep venous thrombosis) (05/01/21) Rhinovirus Acute respiratory failure with hypoxia Physical debility COVID-19 in immunocompromised patient Nicotine dependence, cigarettes, uncomplicated Diabetes Arthritis Cancer COPD (chronic obstructive pulmonary disease) History of basal cell carcinoma Atherosclerosis of coronary artery of [place] heart without angina pectoris Pneumonia Non-Hodgkin lymphoma History of pilonidal cyst Allergic rhinitis 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 complications Gastritis Colon polyp Obesity Asthma Chronic bronchitis Positive colorectal cancer screening using Cologuard test RA (rheumatoid arthritis) Home Medications ?Medication ?Instructions ?Recorded ?Last Taken ?Type finasteride 5 mg tablet 5 mg PO DAILY prostate 08/14/22 07/07/24 History tamsulosin 0.4 mg capsule 0.4 mg PO QHS prostate 08/14/22 07/07/24 History multivitamin 1 tab PO DAILY vitamin 09/13/22 07/07/24 History atorvastatin 40 mg tablet 20 mg (1/2 x 40 mg) PO QHS 09/18/23 07/07/24 Rx cholesterol #90 tabs budesonide 1 mg/2 mL suspension 1 mg (2 mL) inhalation Q12H 09/19/23 07/07/24 Rx for nebulization wheezing/SOB #120 mL ipratropium 0.5 mg-albuterol 3 mg 3 ml inhalation Q4H PRN PRN SOB 09/19/23 07/07/24 Rx (2.5 mg base)/3 mL nebulization &/OR WHEEZING #270 mL soln escitalopram oxalate 10 mg tablet 10 mg PO DAILY mood 90 days #90 10/29/23 07/07/24 Rx tabs mirtazapine 15 mg tablet (Remeron) 7.5 mg (1/2 x 15 mg) PO QHS sleep 10/29/23 07/07/24 Rx #90 tabs insulin aspart U-100 100 unit/mL See Protocol subcut ACHS high 11/12/23 07/07/24 Rx (3 mL) subcutaneous pen blood glucose 1 month #15 mL needle (disp) 32 gauge 32 gauge x #100 ea 11/12/23 Unknown Rx 5/16 (Easy Touch Hypodermic Needle) pen needle, diabetic 32 gauge x #100 ea 12/03/23 Unknown Rx 5/32 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 sensor (FreeStyle #1 ea 12/24/23 Unknown Rx Basilio 3 Sensor device) 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,color receiver,cont #1 ea 12/24/23 Unknown Rx (FreeStyle Basilio 3 [place]) furosemide 40 mg tablet (Lasix) 20 mg (1/2 x 40 mg) PO DAILY 03/08/24 07/07/24 Rx diuretic #60 tabs empagliflozin 10 mg tablet 10 mg PO QDAY diabetes 03/16/24 07/07/24 History (Jardiance) ferrous sulfate 325 mg (65 mg 325 mg PO QODAY Supplement 04/05/24 07/07/24 History iron) tablet (FeroSul) insulin glargine-yfgn 100 unit/mL 20 unit (0.2 mL) subcut BIDCM high 06/25/24 07/08/24 Rx (3 mL) subcutaneous pen blood glucose #15 mL cholecalciferol (vitamin D3) 50 50 mcg PO QDAY 06/28/24 07/07/24 History mcg (2,000 unit) capsule pantoprazole 40 mg tablet,delayed 40 mg PO BID 06/28/24 07/07/24 History release (Protonix) carvedilol 3.125 mg tablet 3.125 mg PO BID BP #60 tabs 07/26/24 Unknown Rx Allergy/AdvReac Type Severity Reaction Status Date / Time No Known Allergies Allergy Verified 08/21/24 10:26 Family History Father Arthritis Bleeding disorder Hypertension Kidney disease Cancer Skin Anemia blood clots Emphysema lung Mother Colon cancer Cancer Lung Cancer Diabetes Brother Thyroid disorder Surgical History History of embolic filter insertion History of heart artery stent Status post cardiac surgery H/O cardiac catheterization Presence of IVC filter (04/2021) History of coronary artery stent placement (10/22/13) History of thymectomy Hx of lymph node excision History of excision of pilonidal cyst Social History household members: spouse Smoking Status: Current some day smoker tobacco type: cigarettes Tobacco: How many years used: 55 second hand exposure: Yes alcohol intake: current alcohol intake frequency: holidays/special occasions only substance use type: does not use caffeine: Yes Type: coffee Number of servings: 3 what type of physical activity do you participate in: none frequency: does not exercise seatbelt use: always ROS ROS ED ROS Narrative Constitutional: Denies any fevers, chills, headaches Eyes: Denies change in vision double vision blurry vision Cardiovascular: Denies chest pain Respiratory: Complains of cough and shortness of breath as noted above Abdomen: Denies abdominal pain nausea vomit diarrhea : Denies urinary symptoms Neurological: Denies any numbness, weakness, tingling Musculoskeletal: Denies back pain Skin: Denies rashes or lesions EXAM Physical Exam Narrative Exam Narrative: General: Patient was lying in bed rest comfortably did not appear to be acute distress Head: Atraumatic, normocephalic Eyes: PERRL bilaterally, EOMI about a, no conjunctival injection noted Neck: Soft, supple, trachea midline Cardiovascular: Regular rate and rhythm no murmurs gallops rubs noted Respiratory: Diminished breath sounds at the right lung base no wheezing noted diffusely Abdomen: Soft, nondistended, nontender to palpation Extremities: Patient does have 1+ pitting edema noted in the bilateral lower extremities, radial pulses +2/4 in the bilateral extremities Neurological: Patient following commands knew that he was at [facility] the year is 2024 Skin: Warm, dry, patient has diffuse flaky scaly skin on the his back noted no rashes no lesions noted Const Vital Signs: 08/21/24 10:26 08/21/24 10:51 08/21/24 10:52 Temperature 98.2 F Temperature Source Temporal Pulse Rate 81 Respiratory Rate 30 H Respiratory Effort Short of Breath Respiratory Depth Shallow Respiratory Pattern Tachypnea Blood Pressure 122/59 H Blood Pressure Mean 80 Pulse Ox 88 95 Oxygen Delivery Method Nasal Cannula Nasal Cannula Nasal Cannula Oxygen Flow Rate (L/min) 4 5 5 Fraction of Inspired Oxygen (FIO2) 08/21/24 10:52 Temperature Temperature Source Pulse Rate Respiratory Rate Respiratory Effort Respiratory Depth Respiratory Pattern Blood Pressure Blood Pressure Mean Pulse Ox Oxygen Delivery Method Nasal Cannula Oxygen Flow Rate (L/min) 5 Fraction of Inspired Oxygen (FIO2) 92 MDM MDM MDM Narrative Medical decision making narrative: Patient is a 73-year-old male who presented to the emergency department chief complaint of dyspnea on exertion. On the differential diagnose includes but not limited to CHF exacerbation, pneumonia, pneumothorax, ACS, PE although feel this less likely as he has IVC filter in place since 2021. Patient will not be given 30 cc/kg bolus of IV fluid secondary to concern for CHF exacerbation. Patient be given 125 mg of Solu-Medrol he already received 2 DuoNeb's and route. Patient CBC reviewed showed no evidence leukocytosis white blood count normal at 10.3, hemoglobin stable at 8.7, patient does have macrocytic anemia with MCV of 101.8. Patient INR normal at 1.1, PT of 14.1. Patient sodium normal 145, potassium normal at 4.5, creatinine was at his baseline at 1.27 does have underlying chronic kidney disease coronary previous blood draws. Patient lactic acid normal at 1.3, AST and ALT were 29 and 19 respectively. Patient's troponin was 97 EKG was reviewed as well which showed sinus rhythm with a rate of 82 bpm this was compared to previous EKG from July 08, 2024 which at that point time showed atrial fibrillation for which she does have a history of this as well. Patient's proBNP elevated to 11,167. Patient's chest x-ray reviewed by myself which shows show concerning for vascular congestion when compared to previous chest x-ray on 07/08 with evidence of likely large pleural effusion on the right side. Patient will be placed on BiPAP for CHF exacerbation as well as we given a milligram of Bumex. Patient's echocardiogram from 06/22/2024 reviewed showed ejection fraction 25% with evidence of diastolic dysfunction noted. At this point time will discuss case with hospitalist for admission. Discussed case with hospitalist Dr. Sharp who accept the patient for admission. He will place the patient in the intensive care unit he was requesting ABG be ordered which was ordered. Patient was notified is agreeable to plan all question concerns answered. Lab Data Labs: Laboratory Results - last 24 hr 08/21/24 08/21/24 10:45 11:28 WBC 10.3 RBC 2.83 L Hgb 8.7 L Hct 28.8 L MCV 101.8 H MCH 30.7 MCHC 30.2 L RDW Std Deviation 68.8 H RDW Coeff of Rafael 18.4 H Plt Count 226 MPV 11.3 Immature Gran % (Auto) 1.100 H Neut % (Auto) 71.0 H Lymph % (Auto) 15.2 L [place] % (Auto) 10.5 H Eos % (Auto) 1.9 Baso % (Auto) 0.3 Absolute Neuts (auto) 7.3 Absolute Lymphs (auto) 1.57 Nucleated RBC % 0.4 PT 14.1 INR 1.1 APTT 25.6 Sodium 145 Potassium 4.5 Chloride 105 Carbon Dioxide 29.3 Anion Gap 11 BUN 21 H Creatinine 1.27 H Estim Creat Clear Calc 62.12 Est GFR (MDRD) Non-Af 59 L BUN/Creatinine Ratio 16.6 Glucose 150 H Lactic Acid 1.3 Calcium 8.2 Total Bilirubin 0.49 AST 29 ALT 19 Alkaline Phosphatase 71 Troponin T High Sens 97 [place]* [place] [address] H Total Protein 6.2 Albumin 3.5 Globulin 2.7 Albumin/Globulin Ratio 1.3 Urine Color Cancelled Urine Clarity Cancelled Urine pH Cancelled Ur Specific [place] Cancelled U Specif Grav (Refrac) Cancelled Urine Protein Cancelled Urine Glucose (UA) Cancelled Urine Ketones Cancelled Urine Occult Blood Cancelled Urine Nitrite Cancelled Urine Bilirubin Cancelled Urine Urobilinogen Cancelled Ur Leukocyte Esterase Cancelled Urine RBC Cancelled Urine WBC Cancelled Ur Squamous Epith Cells Cancelled Ur Transition Epith Cell Cancelled Ur Renal Epithelial Cell Cancelled Calcium Oxalate Crystal Cancelled Uric Acid Crystals Cancelled Triple Phos Crystals Cancelled Other Crystals Cancelled Amorphous Sediment Cancelled Urine Bacteria Cancelled Hyaline Casts Cancelled Fine Granular Casts Cancelled Coarse Granular Casts Cancelled Waxy Casts Cancelled RBC Casts Cancelled WBC Casts Cancelled Urine Mucus Cancelled Urine Trichomonas Cancelled Urine Yeast Cancelled Discharge Plan Triage Chief Complaint: Shortness of Breath ED Provider: Terry Singh Dx/Rx/DC Orders Clinical Impression: CHF exacerbation, Acute on chronic hypoxic respiratory failure, Chronic kidney disease (CKD), Dyspnea on exertion, Anemia, macrocytic, Type 2 UT (myocardial infarction) Prescriptions: No Action multivitamin Tablet 1 tab PO DAILY tamsulosin 0.4 mg capsule 0.4 mg PO QHS finasteride 5 mg tablet 5 mg PO DAILY ipratropium-albuterol 0.5 mg-3 mg(2.5 mg base)/3 mL solution for nebulization 3 ml inhalation Q4H PRN PRN (Reason: SOB &/OR WHEEZING) Qty: 270 11RF budesonide 1 mg/2 mL suspension for nebulization 1 mg inhalation Q12H Qty: 120 11RF (DME) pen needle, diabetic 32 gauge x 5/32 needle See Rx Instructions .ROUTE .MEDSUPPLY Qty: 100 5RF Rx Instructions: As directed Jardiance 10 mg tablet 10 mg PO QDAY ferrous sulfate [FeroSul] 325 mg (65 mg iron) Tablet 325 mg PO QODAY (DME) Easy Touch Hypodermic Needle 32 gauge x 5/16 needle See Rx Instructions .Route Qty: 100 0RF Rx Instructions: As directed insulin aspart U-100 100 unit/mL (3 mL) insulin pen See Protocol subcut ACHS 30 Days Qty: 15 0RF Protocol: 3. Sliding Scale Insulin Med Dosing Condition: 150-189 mg/dl = 1 unit Condition: 190-229 mg/dl = 2 units Condition: 230-269 mg/dl = 3 units Condition: 270-309 mg/dl = 4 units Condition: 310-349 mg/dl = 5 units Condition: 350-399 mg/dl = 6 units Condition: 400-449 mg/dl = 7 units Condition: Greater than 449 call physician Protocol Text: Suggested for: - Patients on Total Daily Insulin Dose of 37-55 units - Obese, infected, or steroid patients MEDIUM DOSING ALGORITHIM insulin glargine-yfgn 100 unit/mL (3 mL) insulin pen 20 unit subcut BIDCM Qty: 15 1RF atorvastatin 40 mg tablet 20 mg PO QHS Qty: 90 3RF escitalopram oxalate 10 mg tablet 10 mg PO DAILY 90 Days Qty: 90 3RF mirtazapine [Remeron] 15 mg tablet 7.5 mg PO QHS Qty: 90 3RF (DME) FreeStyle Basilio 3 Sensor Device See Rx Instructions .Route Qty: 1 5RF Rx Instructions: As directed (DME) FreeStyle Basilio 3 [place] Misc See Rx Instructions .Route Qty: 1 0RF Rx Instructions: As directed furosemide [Lasix] 40 mg tablet 20 mg PO DAILY Qty: 60 1RF pantoprazole [Protonix] 40 mg tablet,delayed release (DR/EC) 40 mg PO BID cholecalciferol (vitamin D3) 50 mcg (2,000 unit) capsule 50 mcg PO QDAY carvedilol 3.125 mg tablet 3.125 mg PO BID Qty: 60 11RF Rx Instructions: must administer with a meal/food Primary Care Provider: Donna Will Referrals: Donna Will MD [Primary Care Provider] - Print Language: Polish Disposition Disposition: Acute Care Hospital [facility]
[2024-08-21 10:54] LABS: Hematocrit 28.8 % (40-54); Hemoglobin 8.7 g/dL (13.0-16.5); Immature Granulocytes Count 0.110 X10^3/uL (0.0-0.0); Mean Corp Hgb Conc 30.2 g/dL (32-36); Mean Corpuscular Volume 101.8 fL (80-94); Mean Platelet Vol. 11.3 fl (6.2-12.0); NRBC Flagged by Analyzer 0.4 % (0-5); POSITIVE MORPHOLOGY YES; Platelet Count 226 K/mm3 (150-450); RBC Distribution Width CV 18.4 % (11.6-14.6); RBC Distribution Width SD 68.8 fl (35.1-43.9); Red Blood Count 2.83 M/mm3 (4.6-6.2); White Blood Count 10.3 K/mm3 (4.4-11.0)
[2024-08-21 10:55] LABS: Differential Indicated SCAN CRITERIA MET
[2024-08-21] MEDS: 0.9% Normal Saline (500mL Bag) 500 ML 100 ML IV (10:55)
[2024-08-21 11:01] LABS: Partial Thromboplast Time 25.6 Seconds (24.1-36.2); Prothrombin Time (Protime)PT. 14.1 SECONDS (11.7-14.9)
--- NOTE | 2024-08-21 11:02 | RAD_ITS ---
PROCEDURE: CHEST PA AND LATERAL 08/21/2024 REASON FOR EXAM: COUGH, SOB TECHNIQUE: CHEST PA AND LATERAL COMPARISON: 07/08/2024 RAD/Chest PA and Lateral IMPRESSION: Worsened moderate right pleural effusion. Trace left base effusion. Superimposed focal consolidation not excluded within the right lower lobe. Mil [id number] pulmonary edema. Median sternotomy wires. Cardiac silhouette is unchanged. No pneumothorax. Reading Location: [id number]
--- OUTSIDE RECORDS SUMMARY | 2024-08-21 11:29 | XMS RPT_ITS | CCD ---
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 Donna Will Primary Care Provider Dr. Donna Will Attending Provider [phone] Dr. Donna Will Referring Provider Dr. Dank Iraheta Emergency Provider Dr. Janice Mackey Admit Provider Dr. Jordan Ortiz Attending Provider Unavailable Dr. Jordan Ortiz Other Provider Unavailable Dr. Mario Dewitt Attending Provider Dr. Mario Dewitt Other Provider Dr. Margie Joy Emergency Provider Dr. Jaclyn Solo Admit Provider Dr. Marco Cruz Attending Provider Dr. Marco Cruz Other Provider Dr. Alexi Roblero Other Provider Dr. Marco Cruz Referring Provider Dr. Alexi Roblero Attending Provider Dr. Dwain Nowak Emergency Provider Dr. Janice Mackey Attending Provider Dr. Anthony Singleton Other Provider Dr. Dank Corbin Other Provider Dr. Suze Rosas Other Provider Dr. Clive Sharp Referring Provider Dr. Suze Rosas Attending Provider Dr. Norm Mello Attending Provider Oliver BOSS, SORIN Escobar Attending Provider Dr. Marco Hoffman Emergency Provider Dr. Suze Rosas Admit Provider Dr. Wilberto Villafuerte Other Provider Dr. Anthony Singleton Attending Provider Dr. Silas Sinha Chi Referring Provider Dr. Wilberto Huerta Attending Provider Dr. Jordan Ortiz Referring Provider Unavailable Dr. Khai Galeana Attending Provider Dr. Wilberto Huerta Other Provider TAMICA Tay Attending Provider Dr. Khai Galeana Referring Provider Beatriz Osorio Attending Provider Unavailable Dr. Donna Will Primary Care Provider Dr. Margie Joy Emergency Provider Dr. Jaclyn Solo Admit Provider Dr. Marco Cruz Attending Provider Dr. Marco Cruz Other Provider Dr. Alexi Roblero Other Provider Dr. Marco Cruz Referring Provider Dr. Alexi Roblero Attending Provider Dr. Donna Will Attending Provider Dr. Donna Will Referring Provider Dr. Dwain Nowak Emergency Provider Dr. Janice Mackey Attending Provider Dr. Janice Mackey Admit Provider Dr. Anthony Singleton Other Provider Dr. Dank Corbin Other Provider Alison, Dr. Arciniega Other Provider Dr. Clive Sharp [facility] Attending Provider Dr. Norm Mello Attending Provider Oliver BOX FEEDER, BOX FEEDER-C Luz Attending Provider Dr. Marco Hoffman Emergency Provider Franciegivenjaime, Dr. Arciniega Admit Provider Dr. Jordan Ortiz Other Provider Unavailable Dr. Wilberto Villafuerte Other Provider Dr. Anthony Singleton Attending Provider Dr. Silas Sinha Chi Referring Provider Dr. Jordan Ortiz Attending Provider Unavailable Dr. Wilberto Huerta Attending Provider [phone] Jordan Ortiz Referring Provider Unavailable Dr. Khai Galeana Attending Provider Dr. Wilberto Huerta Other Provider TAMICA Tay Attending Provider [phone] Dr. Khai Galeana Referring Provider [phone] Beatriz Osorio Attending Provider Unavailable Ashok BOX FEEDER, BOX FEEDER-C More Attending Provider Dr. Farida Todd Emergency Provider Dr. Jordan Ortiz Admit Provider Unavailable Dr. Donna Will Primary Care Provider Dr. Donna Will Attending Provider [phone] Dr. Donna Will Referring Provider [phone] Dr. Jordan Ortiz Attending Provider Unavailable Dr. Jordan Ortiz Other Provider Unavailable Dr. Wilberto Huerta Attending Provider [phone] Donna Will Primary Care Provider Dr. Donna Will Referring Provider [phone] Dr. Donna Will Attending Provider Dr. Hayden Morley Emergency Provider Dr. Janice Mackey Admit Provider Dr. Janice Mackey Other Provider Dr. Nadira Ricks Attending Provider Dr. Nadira Ricks Other Provider Dr. Donna Will Primary Care Provider Dr. Donna Will Referring Provider [phone] Ashok BOX FEEDER, BOX FEEDER-C More Attending Provider Dr. Wilberto Huerta Referring Provider YANELIS Mayfield Attending Provider Piña, Dannielle [facility] Bocanegra Attending Provider YANELIS Mayfield Referring Provider PIÑA, BOX FEEDER-C DANNIELLE Primary Care Provider PIÑA, BOX FEEDER-C DANNIELLE Referring Provider Dr. Marco Hoffman Emergency Provider Dr. Mario Dewitt Admit Provider Dr. Mario Dewitt Attending Provider Dr. Mario Dewitt Other Provider Dr. Khai Galeana Other Provider Dr. Tobi Shannon Attending Provider Dr. Khai Galeana Attending Provider Dr. Suze Rosas Other Provider Dr. Suze Rosas Attending Provider Dr. Donna Will Primary Care Provider Dr. Dnona Will Referring Provider [phone] Ashok BOX FEEDER, BOX FEEDER-C More Attending Provider Dr. Suze Rosas Attending Provider Dr. Suze Rosas Referring Provider Dr. Margie Joy Emergency Provider Dr. Janice Mackey Attending Provider Dr. Jordan Ortiz Other Provider Unavailable Angel, Dr. Ortega Attending Provider Unavailable Dr. Jordan Ortiz Referring Provider Unavailable Angel, Dr. Ortega Attending Provider Unavailable Dr. Donna Will Primary Care Provider Dr. Hayden Morley Emergency Provider Dr. Janice Mackey Admit Provider Dr. Janice Mackey Other Provider Dr. Nadira Ricks Attending Provider Dr. Nadira Ricks Other Provider Dr. Donna Will Referring Provider YANELIS Mayfield Attending Provider Piña, Dannielle Primary Care Provider Unavailabl Dr. Tobi Bocanegra Attending Provider YANELIS Mayfield Referring Provider PIÑA, BOX FEEDER-C DANNIELLE Primary Care Provider PIÑA, BOX FEEDER-C DANNIELLE Referring Provider Ashok BOX FEEDER, BOX FEEDER-C More Attending Provider Dr. Marco Hoffman Emergency Provider Dr. Mario Dewitt Admit Provider Dr. Mario Dewitt Attending Provider Dr. Mario Dewitt Other Provider Dr. Khai Galeana Other Provider Dr. Suze Rosas Attending Provider Dr. Khai Galeana Attending Provider Dr. Suze Rosas Referring Provider Dr. Suze Rosas Other Provider Dr. Margie Joy Emergency Provider Narendra, Dr. Janice Powell Attending Provider Dr. Jordan Ortiz Referring Provider Unavailable Angel, Dr. Ortega Other Provider Unavailable Angel, Dr. Ortega Attending Provider Unavailable CARO, BOX FEEDER-C DANNIELLE Primary Care Provider Dr. Janice Mackey Admit Provider Dr. Janice Mackey Other Provider Benny, Dr. Britton Attending Provider Dr. Faisal Walker Emergency Provider Dr. Tobi Shannon Admit Provider Dr. Tobi Shannon Attending Provider Dr. Tobi Shannon Other Provider Dr. Alexi Roblero Attending Provider Dr. Alexi Roblero Other Provider Dr. Anthony Singleton Other Provider Dr. Rambo Bruner Other Provider Dr. Afshin Pablo Other Provider Unavailab Garg BOX FEEDER, BOX FEEDER-C More Other Provider Dr. Anthony Singleton Attending Provider GERA PIÑA-Gurwinder DEJESUS Primary Care Provider Dr. Margie Joy Emergency Provider Dr. Janice Mackey Admit Provider Dr. Janice Mackey Attending Provider Dr. Janice Mackey Other Provider Dr. Suze Rosas Attending Provider Alison, Dr. Arciniega Other Provider Dr. Jordan Ortiz Referring Provider Unavailable Angel, Dr. Ortega Other Provider Unavailable Lissett, Dr. Ridley Attending Provider Dr. Jordan Ortiz Attending Provider Unavailable CARO, BOX FEEDER-C DANNIELLE Referring Provider [phone] Dr. Tobi Zapata Attending Provider Dr. Faisal Walker Emergency Provider Mirtha, Dr. Tobi Desaiit Provider Mirtha, Dr. Britton Attending Provider Dr. Tobi Shannon Other Provider Mirtha, Dr. Britton Referring Provider Dr. Alexi Roblero Attending Provider [phone] Alexi Roblero Other Provider Dr. Anthony Singleton Other Provider Dr. Rambo Bruner Other Provider [phone] Afshin Pablo Other Provider Unavail higinio Pulido BOX FEEDER, BOX FEEDER-C More Other Provider Dr. Anthony Singleton Attending Provider [phone] CARO BOX FEEDER-C DANNIELLE Primary Care Provider CARO BOX FEEDER-C DANNIELLE Referring Provider Dr. Tobi Zapata Attending Provider Dr. Faisal Walker Emergency Provider [phone] Tobi Shannon[address] Provider Dr. Tobi Shannon Attending Provider Dr. Tobi Shannon Other Provider Dr. Tobi Shannon Referring Provider Dr. Suze Rosas Other Provider Dr. Alexi Roblero Attending Provider [phone] Alexi Roblero Other Provider Dr. Anthony Singleton Other Provider Dr. Rambo Bruner Other Provider Dr. Afshin Pablo Other Provider Unavailab higinio Pulido BOX FEEDER, BOX FEEDER-C More Other Provider Dr. Suze Rosas Attending Provider Dr. Anthony Singleton Attending Provider Dr. Jordan Ortiz Other Provider Unavailable Dr. Jordan Ortiz Attending Provider Unavailable PIÑA, BOX FEEDER-C DANNIELLE Primary Care Provider PIÑA, BOX FEEDER-C DANNIELLE Referring Provider [phone] Dr. Tobi Zapata Attending Provider Ashok BOX FEEDER, BOX FEEDER-C More Attending Provider PIÑA, BOX FEEDER-C DANNIELLE Primary Care Provider Dr. Anthony Singleton Attending Provider Dr. Anthony Singleton Referring Provider Dr. Anthony Singleton Other Provider Dr. Khai Galeana Attending Provider PIÑA, BOX FEEDER-C DANNIELLE Primary Care Provider Dr. Anthony Singleton Attending Provider PIÑA, BOX FEEDER-C DANNIELLE Referring Provider Dr. Tobi Zapata Attending Provider Dr. Donna Will Attending Provider [phone] PIÑA, BOX FEEDER-C DANNIELLE Primary Care Provider PIÑA, BOX FEEDER-C DANNIELLE Referring Provider Dr. Khai Galeana Attending Provider Dr. Donna Will Primary Care Provider Dr. Donna Will Referring Provider Dr. Norm Mello Attending Provider West BOX FEEDER, BOX FEEDER-C Martha Attending Provider [phone] Dr. Jj Garcia Emergency Provider Dr. Loki Lozoya Admit Provider [phone] Loki Lozoya Attending Provider Dr. Loki Lozoya Other Provider Dr. Chicho Carson Attending Provider Dr. Jordan Ortiz Attending Provider Unavailable Dr. Jordan Ortiz Other Provider Unavailable Dr. Donna Will Primary Care Provider Dr. Donna Will Referring Provider Dr. Tobi Zapata Attending Provider Dr. Jj Garcia Emergency Provider Dr. Loki Lozoya Admit Provider [phone] Loki Lozoya Attending Provider Dr. Loki Lozoya Other Provider [phone] Chicho Carson Attending Provider Dr. Loki Lozoya Referring Provider Dr. Jordan Ortiz Attending Provider Unavailable Dr. Jordan Ortiz Other Provider Unavailable Dr. Donna Will Attending Provider Ashok BOX FEEDER, BOX FEEDER-C More Attending Provider [phone] Dr. Donna Will Primary Care Provider Dr. Donna Will Referring Provider Dr. Tobi Zapata Attending Provider Dr. Donna Will Primary Care Provider Dr. Jj Garcia Emergency Provider Dr. Loki Lozoya Admit Provider [phone] Loki Lozoya Attending Provider Dr. Loki Lozoya Other Provider Dr. Chicho Carson Attending Provider Dr. Loki Lozoya Referring Provider [phone] Dr. Jordan Ortiz Attending Provider Unavailable Dr. Jordan Ortiz Other Provider Unavailable Dr. Donna Will Attending Provider Dr. Donna Will Referring Provider [phone] Dr. Tobi Zapata Attending Provider Ashok BOX FEEDER, BOX FEEDER-C More Attending Provider Dr. Dwain Nowak Emergency Provider Dr. Mable Pritchard Admit Provider Dr. Mable Pritchard Attending Provider Dr. Mable Pritchard Other Provider Dr. Donna Will Primary Care Provider Dr. Jj Garcia Emergency Provider Dr. Loki Lozoya Admit Provider [phone] Loki Lozoya Other Provider Dr. Norm Mello Attending Provider Dr. Jordan Ortiz Referring Provider Unavailable Unavailable Primary Care Provider Unavailabl e Dr. Donna Will Primary Care Provider Dr. Donna Will Referring Provider Dr. Tobi Zapata Attending Provider Dr. Jordan Ortiz Attending Provider Unavailable Dr. Jordan Ortiz Other Provider Unavailable Dr. Eva Marie Emergency Provider Dr. Nadira Ricks Admit Provider Dr. Nadira Ricks Other Provider Dr. Isaias Granados Other Provider Dr. Alexi Roblero Other Provider Dr. Anthony Singleton Attending Provider Dr. Anthony Singleton Other Provider Dr. Carlito Cárdenas Other Provider Dr. Claudine Andrade Other Provider Dr. Marvin Coats Other Provider Dr. Elizabeth Wilson Other Provider Dr. Aric Leon Other Provider Unavailable Dr. Rajeev Dalton Other Provider Dr. Roberto Escalante Other Provider Dr. Madi Tavarez Other Provider Dr. Zhang Concepcion Other Provider Aron, Dr. Duffy Referring Provider Aron, Dr. Duffy Other Provider Aron, Dr. Duffy Attending Provider Dr. Norm Mello Referring Provider Lissett, Dr. Ridley Attending Provider [phone] GERA Castro-C Bethany Purcell Attending Provider Dr. Donna Will Attending Provider Dr. Donna Will Primary Care Provider Dr. Donna Will Referring Provider Dr. Tobi Zapata Attending Provider Ashok BOX FEEDER, BOX FEEDER-C More Attending Provider Dr. Dwain Nowak Emergency Provider Dr. Mable Pritchard Admit Provider Dr. Mable Pritchard Attending Provider Dr. Mable Pritchard Other Provider Dr. Jordan Ortiz Attending Provider Unavailable Dr. Jordan Ortiz Other Provider Unavailable Dr. Norm Mello Attending Provider Dr. Jordan Ortiz Referring Provider Unavailable Dr. Eva Marie Emergency Provider Dr. Nadira Ricks Admit Provider Dr. Nadira Ricks Other Provider Dr. Isaias Granados Other Provider [phone] Dr. Alexi Roblero Other Provider Dr. Anthony Singleton Attending Provider Dr. Anthony Singleton Other Provider Dr. Carlito Cárdenas Other Provider Dr. Claudine Andrade Other Provider Dr. Marvin Coats Other Provider Dr. Elizabeth Wilson Other Provider Dr. Aric Leon Other Provider Unavailable Dr. Rajeev Dalton Other Provider Dr. Roberto Escalante Other Provider Dr. Madi Tavarez Other Provider Dr. Zhang Concepcion Other Provider Dr. Clive Sharp Referring Provider Dr. Clive Sharp Other Provider Dr. Clive Sharp Attending Provider Dr. Norm Mello Referring Provider Lissett, Dr. Ridley Attending Provider Gloria, GERA-C Bethany Purcell Attending Provider Dr. Donna Will Attending Provider Rudolph BOX FEEDER, BOX FEEDER-C Jennifer Attending Provider Dr. Donna Will Primary Care Provider Dr. Donna Will Referring Provider Dr. Tobi Zapata Attending Provider Benny, Dr. Britton Referring Provider Benny, Dr. Britton Other Provider Dr. Donna Will MD Primary Care Provider Dr. Donna Will MD Attending Provider Suman TEIXEIRA, Dr. Thompson Referring Provider Gumaro BOX FEEDER-CGris Attending Provider Gumaro BOX FEEDER-CGris Referring Provider Elizabeth Mayfield Attending Provider Higinio [place], Dr. Ly Emergency Provider de Americo [place], Dr. Ortega Admit Provider Unavail able Mendoza DO, Dr. Ortega Other Provider Unavail able Darwin TEIXEIRA, Dr. Esparza Other Provider Milana TEIXEIRA, Dr. Peck Other Provider Osbaldo TEIXEIRA, Dr. Truong Other Provider [phone] Mani [place], Dr. Cruz Other Provider Clinton TEIXEIRA, Dr. Jordan Serra Other Provider Mike TEIXEIRA, Dr. Dsouza Other Provider [phone] Avi TEIXEIRA, Dr. Esteban Other Provider Raymond TEIXEIRA, Dr. Chow Other Provider [phone] Pauly TEIXEIRA, Dr. Wong Other Provider Lyle TEIXEIRA, Dr. Cochran Other Provider [phone] Kashif Berg MD Other Provider Dr. Elizabeth Wilson MD Other Provider [phone] Aric Leon MD [facility], Dr. Burrell Other Provider Alberta TEIXEIRA, Dr. Meyer Other Provider Dr. Rajeev Dalton MD Other Provider Ava TEIXEIRA, Dr. Mejia Other Provider Dr. Nikolai Keller DO Other Provider Aaliyah TE[facility]EIRA, Dr. Crabtree Other Provider Jodi TEIXEIRA, Dr. Urbano Other Provider Austin [place], Dr. Dc Other Provider Corby TEIXEIRA, Dr. Barraza Other Provider [phone] Jamey TEIXEIRA, Dr. Holcomb Other Provider Jaleesa TEIXEIRA, Dr. Huang Paul Attending Provider Mani [place], Dr. Cruz Attending Provider Jaleesa TE[facility]EIRA, Dr. Huang Paul Referring Provider Jaleesa TEIXEIRA, Dr. Huang Paul Other Provider Lissett [place], Dr. Ridley Attending Provider West BOX FEEDER-C, Martha Attending Provider CARO BOX FEEDER-C, DANNIELLE Primary Care Provider Benny TEIXEIRA, Dr. Britton Attending Provider Benny TEIXEIRA, Dr. Britton Referring Provider Dr. Eva Marie DO Emergency Provider Macho TEIXEIRA, Dr. Akins Admit Provider Macho TEIXEIRA, Dr. Akins Other Provider Angel TE[facility]EIRA, Dr. Ortega Attending Provider Augustus Villafuerte MD, Dr. Ladd Other Provider Angel TEIXEIRA, Dr. Ortega Other Provider Unavailable Angel TE[facility]EIR[facility], Dr. Ortega Referring Provider Unavailjovana Dang MD, Dr. Lara Attending Provider Alli TE[facility]EIR[facility], Dr. Valentino Attending Provider Noy TEIXEIRA, Dr. Ladd Attending Provider Noy TEIXEIRA, Dr. Ladd Referring Provider Suman TEIXEIRA, Dr. Thompson Primary Care Provider Suman TEIXEIRA, Dr. Thompson Referring Provider Gumaro BOX FEEDER-C, Gris Dominguez Attending Provider Macho TEIXEIRA, Dr. Akins Referring Provider Suman TEIXEIRA, Dr. Thompson Attending Provider Yasmin [place], Dr. Lara Emergency Provider Yasmin [place], Dr. Lara Attending Provider Gumaro BOSS-CGris Referring Provider Suman TEIXEIRA, Dr. Thompson Primary Care Provider [phone] Suman TE[facility]EIRA, Dr. Thompson Referring Provider Noy TEIXEIRA, Dr. Ladd Attending Provider Noy TEIXEIRA, Dr. Ladd Referring Provider CARO BOX FEEDER-C, CHAMPION Primary Care Provider Benny TEIXEIRA, Dr. Britton Attending Provider Benny TEIXEIRA, Dr. Britton Referring Provider Benny TEIXEIRA, Dr. Britton Attending Provider Benny TEIXEIRA, Dr. Britton Referring Provider [phone] CARO BOX FEEDER-C, CHAMPION Primary Care Provider Donna Will Primary Care Unavailable Wilberto Villafuerte Attending Unavailable Suman, Donna Primary Care Unavailable Gris Naik Attending Unavailable Gris Naik Referring Unavailable Suman, Donna Primary Care Unavailable Wilberto Villafuerte Referring Unavailable Wilberto Villafuerte Attending Unavailable Donna Will Referring Unavailable Suman, Donna Primary Care Unavailable Gris Naik Attending Unavailable Mable Pritchard Admitting Unavailable Suman, Donna Primary Care Unavailable Isaias Granados Consulting Unavailable Jordan Ortiz Attending Unavailable Cisco Cortés Consulting Unavailable Alexi Roblero Consulting Unavailable Anthony Singleton Consulting Unavailable Jordan Alonzo Consulting Unavailable Meet Mckeon Consulting Unavailable Carlito Cárdenas Consulting Unavailable Claudine Andrade Consulting UnavailMarvin Bauer Consulting Unavailable Dimas Alvarenga Consulting Unavailable Kashif Berg Consulting Unavailable Elizabeth Wilson Consulting Unavailable Aljundi, Lamia Consulting Unavailable Dugan, Ashanti Consulting Unavailable Alberta, Mitch Consulting Unavailable Irukulla, Rajeev Consulting Unavailable Ava, Roberto Consulting Unavailable Dhesi, Nikolai Consulting Unavailable Fischer, Sujoy Consulting Unavailable [place], Soleyah Consulting Unavailable Fernstrom, Dao Consulting Unavailable Corby, Madi Consulting Unavailable Zhang Concepcion Consulting Unavailable Mable Pritchard Consulting Unavailable Jordan Ortiz Consulting Unavailable Mable Pritchard Attending Unavailable Suman, Donna Primary Care Unavailable Jordan Mendoza Consulting Unavailable Clive Sharp Attending Unavailable Jordan Mendoza Admitting Unavailable Wilberto Villafuerte Consulting Unavailable Aron, Clive Consulting Unavailable Suman, Donna Primary Care Unavailable Norm Mello Attending Unavailable Suman, Donna Primary Care Unavailable Janice Mackey Consulting Unavailable Janice Mackey Admitting Unavailable Mario Dewitt Attending Unavailable Huang Lazcano Consulting Unavailable Suman, Donna Primary Care Unavailable Gris Naik Attending Unavailable Gris Naik Referring Unavailable Suman, Donna Primary Care Unavailable Elizabeth Mayfield Attending Unavail able Elizabeth Mayfield Referring Unavail able Khai Galeana Attending Unavailable Suman, Donna Primary Care Unavailable Isaias Granados Consulting Unavailable Jordan Mendoza Admitting Unavailable Huang Lazcano Referring Unavailable Cisco Cortés Consulting Unavailable Alexi Roblero Consulting Unavailable Anthony Singleton Consulting Unavailable Jordan Alonzo Consulting Unavailable Meet Mckeon Consulting Unavailable Carlito Cárdenas Consulting Unavailable Claudine Andrade Consulting Unavailab Marvin Lieberman Consulting Unavailable Dimas Alvarenga Consulting Unavailable Kashif Berg Consulting Unavailable Elizabeth Wilson Consulting Unavailable Aljundi, Lamia Consulting Unavailable Dugan, Ashanti Consulting Unavailable Alberta, Mitch Consulting Unavailable Irukulla, Rajeev Consulting Unavailable Ava, Roberto Consulting Unavailable Dhesi, Nikolai Consulting Unavailable Fischer, Sujoy Consulting Unavailable [place], Soleyah Consulting Unavailable Justinnstrom, Dao Consulting Unavailable Corby, Madi Consulting Unavailable Zhang Concepcion Consulting Unavailable Jordan Mendoza Consulting Unavailable Huang Lazcano Consulting Unavailable Suman, Donna Primary Care Unavailable Elizabeth Mayfield Attending Unavail able Elizabeth Mayfield Referring Unavail able Suman, Donna Primary Care Unavailable Elizabeth Mayfield Attending Unavail able Gris Naik Attending Unavailable Gris Naik Referring Unavailable Suman, Donna Primary Care Unavailable Suman, Donna Primary Care Unavailable Marco Hoffman Attending Unavailable Tobi Zapata Attending Unavailable Tobi Zapata Referring Unavailable PIÑA, DANNIELLE Primary Care Unavailable Suman, Donna Primary Care Unavailable Jennifer Galdamez Referring Unavailable Jennifer Galdamez Attending Unavailable Suman, Donna Primary Care Unavailable Khai Galeana Attending Unavailable Suman, Donna Referring Unavailable SumanPageen Attending Unavailable Suman, Donna Primary Care Unavailable Suman, Donna Primary Care Unavailable Wilberto Villafuerte Referring Unavailable Wilberto Villafuerte Attending Unavailable Suman, Donna Primary Care Unavailable Wilberto Villafuerte Referring Unavailable Wilberto Villafuerte Attending Unavailable Suman, Donna Primary Care Unavailable Jordan Mendoza Consulting Unavailable Clive Sharp Attending Unavailable Jordan Mendoza Admitting Unavailable Wilberto Villafuerte Consulting Unavailable Huang Lazcano Attending Unavailable Suman, Donna Primary Care Unavailable Janice Mackey Admitting Unavailable Janice Mackey Consulting Unavailable Huang Lazcano Consulting Unavailable Janice Mackey Attending Unavailable Suman, Donna Primary Care Unavailable Mekhi Garcia Referring Unavailable Mekhi Garcia Attending Unavailable Suman, Donna Primary Care Unavailable Anthony Singleton Attending Unavailable Gris Naik Referring Unavailable Suman, Donna Primary Care Unavailable Janice Mackey Referring Unavailable Mekhi Garcia Attending Unavailable Suman, Donna Primary Care Unavailable Chicho Carson Attending Unavailabl e Suman, Donna Primary Care Unavailable Marco Dang Attending Unavailable Mable Pritchard Referring Unavailable Suman, Donna Primary Care Unavailable Suman, Donna Referring Unavailable Prabha Monte Attending Unavailable Suman, Donna Primary Care Unavailable Tobi Zapata Attending Unavailable Suman, Donna Referring Unavailable Elizabeth Mayfield Attending Unavail able Suman, Donna Referring Unavailable Suman, Donna Primary Care Unavailable Suman, Donna Referring Unavailable Suman, Donna Primary Care Unavailable West BOX FEEDER, Martha Attending Unavailable Suman, Donna Primary Care Unavailable Suman, Donna Referring Unavailable Tboi Zapata Attending Unavailable Suman, Donna Primary Care Unavailable Marcus HILARIO, Elizabeth Dominguez Attending Unavail able Suman, Donna Referring Unavailable Suman, Donna Primary Care Unavailable SumanDonna Attending Unavailable Anthony Singleton Attending Unavailable Jordan Ortiz Referring Unavailable Wilberto Villafuerte Consulting Unavailable Mable Pritchard Admitting Unavailable Suman, Donna Primary Care Unavailable Jordan Ortiz Attending Unavailable Mable Pritchard Consulting Unavailable Wilberto Villafuerte Consulting Unavailable Suman, Donna Primary Care Unavailable Huang Lazcano Attending Unavailable Isaias Granados Consulting Unavailable Jordan Mendoza Admitting Unavailable Cisco Cortés Consulting Unavailable Alexi Roblero Consulting Unavailable Anthony Singleton Consulting Unavailable Jordan Alonzo Consulting Unavailable Meet Mckeon Consulting Unavailable Carlito Cárdenas Consulting Unavailable Claudine Andrade Consulting UnavailMarvin Bauer Consulting Unavailable Dimas Alvarenga Consulting Unavailable Kashif Berg Consulting Unavailable Elizabeth Wilson Consulting Unavailable Aric Leon Consulting Unavailable Ashanti Dugan Consulting Unavailable AlbertaSusannah richardtam Consulting Unavailable Rajeev Dalton Consulting Unavailable Roberto Escalante Consulting Unavailable Nikolai Keller Consulting Unavailable Leyda Fischer Consulting Unavailable Yolie Zapata Consulting Unavailable Dao Avila Consulting Unavailable Madi Tavarez Consulting Unavailable Zhang Concepcion Consulting Unavailable Jordan Mendoza Consulting Unavailable Huang Lazcano Attending Unavailable Tobi Zapata Attending Unavailable Suman, Donna Primary Care Unavailable Suman, Donna Referring Unavailable Suman, Donna Primary Care Unavailable Ashok BOX FEEDER, More Attending Unavailable Suman, Donna Referring Unavailable Suman, Donna Primary Care Unavailable Zeferino BOSS, Sreedhar Blair Attending Unavailable Jordan Mendoza Attending Unavailable Anthony Singleton Attending Unavailable Suman, Donna Primary Care Unavailable Wilberto Villafuerte Referring Unavailable Wilberto Villafuerte Attending Unavailable Jordan Mendoza Attending Unavailable Elizabeth Mayfield Consulting Unavail able Elizabeth Mayfield Referring Unavail able Suman, Donna Primary Care Unavailable Norm Mello Attending Unavailable Mario Dewitt Attending Unavailable Mario Dewitt Consulting Unavailable Suman, Donna Referring Unavailable Suman, Donna Primary Care Unavailable Khai Galeana Attending Unavailable Gris Naik Attending Unavailable Suman, Donna Referring Unavailable Suman, Donna Primary Care Unavailable Donna Will Attending Unavailable Suman, Donna Primary Care Unavailable Suman, Donna Referring Unavailable Suman, Donna Primary Care Unavailable Tobi Zapata Attending Unavailable Ashok BOX FEEDER, More Attending Unavailable Suman, Donna Primary Care Unavailable Ashok BOX FEEDER, More Referring Unavailable Donna Will Primary Care Unavailable Tobi Zapata Referring Unavailable Tobi Zapata Attending Unavailable Allergies Allergy Classification Reported Allergen(s) Allergy Type Date of Onset Reaction(s) Facility (5 sources) Famotidine Drug Allergy 2 Diarrhea [facility] Work Phone: (20 sources) levoFLOXacin Drug Allergy 2 dizziness, diarrhea, dizziness, GI upset, weakness [facility] (1 source) levoFLOXacin Drug Allergy 5 [facility] Repository Medications Current Medications Medication Drug Class(es) Dates Sig (Normalized) Sig (Original) acetaminophen 500 mg oral tablet (20 sources) Start: 05-16-2021 take 1000 mg by mouth every six hours as needed Acetaminophen Active 1000 MG PO EVERY 6 HOURS NEEDED 0 May 16, 2021 8:24pm Start: 05-04-2021 End: 05-16-2021 albuterol 0.833 mg/ml / ipratropium bromide 0.167 mg/ml inhalation solution (20 sources) Anticholinergic, beta2-Adrenergic Agonist Start: 09-19-2023 Start: 06-18-2021 End: 10-21-2022 Start: 06-18-2021 End: 10-21-2022 Start: 06-18-2021 End: 10-21-2022 take 1 mL by inhalation every four hours as needed Ipratropium-Albuterol Discontinued 3 ML INHALATION EVERY 4 HOURS NEEDED 180 June 25, 2022 8:18am October 21, 2022 10:21am amoxicillin 875 mg / clavula karen 125 mg oral tablet (20 sources) Penicillin-class Antibacterial Start: 07-08-2024 Start: 03-21-2023 End: 03-27-2023 Start: 02-16-2022 End: 02-27-2022 Start: 10-02-2021 End: 10-09-2021 Start: 04-26-2021 End: 05-04-2021 Start: 06-23-2020 End: 07-17-2020 Start: 06-23-2020 End: 07-17-2020 take 1 tablet by mouth every eight hours Amoxicillin-Pot Clavulanate Discontinued 1 TABLET PO Q8H June 22, 2020 11:00pm July 17, 2020 10:39am carvedilol 3.125 mg oral tablet (14 sources) alpha-Adrenergic Avinash, beta-Adrenergic Avinash Start: 06-05-2023 End: 07-26-2024 Start: 06-05-2023 cholecalciferol 0.05 mg oral capsule (20 sources) Vitamin D Start: 06-28-2024 Start: 07-17-2020 End: 09-13-2022 empagliflozin 10 mg oral tab let (20 sources) Sodium-Glucose Cotransporter 2 Inhibitor Start: 03-16-2024 Start: 06-05-2023 End: 12-03-2023 Start: 06-05-2023 finasteride 5 mg oral tablet (20 sources) 5-alpha Reductase Inhibitor Start: 08-14-2022 Fluticasone Propion-Salmeterol (20 sources) Corticosteroid, beta2-Adrenergic Agonist Start: 06-25-2021 Fluticasone Propion-Salmeterol (Advair Diskus) 500-50 mcg/dose blister with device Active 1 INH INHALATION TWICE A DAY June 25, 2021 1:51pm Start: 09-13-2019 End: 09-28-2019 take 1 puff(s) by inhalation twice daily Fluticasone Propion-Salmeterol (Advair Hfa) 115-21 mcg/actuation HFA aerosol inhaler Discontinued 2 PUFF INHALATION TWICE A DAY September 13, 2019 1:44pm September 28, 2019 2:07pm Start: 09-13-2019 End: 09-28-2019 Start: 09-13-2019 End: 09-28-2019 Start: 09-13-2019 End: 09-28-2019 take 1 puff(s) by inhalation twice daily Fluticasone Propion-Salmeterol (Advair Hfa) 115-21 mcg/actuation HFA aerosol inhaler Discontinued 2 PUFF INHALATION TWICE A DAY September 12, 2019 11:00pm September 28, 2019 1:07pm Start: 09-13-2019 End: 09-28-2019 take 1 puff(s) by inhalation twice daily Fluticasone Propion-Salmeterol (Advair Hfa) 115-21 mcg/actuation HFA aerosol inhaler Discontinued 2 PUFF INHALATION TWICE A DAY September 13, 2019 12:00am September 28, 2019 2:07pm Start: 03-15-2019 End: 04-28-2019 take 1 puff(s) by inhalation twice daily Fluticasone Propion-Salmeterol (Advair Hfa) 115-21 mcg/actuation HFA aerosol inhaler Discontinued 2 PUFF INHALATION TWICE A DAY March 15, 2019 3:43pm April 28, 2019 9:16am Start: 03-15-2019 End: 04-28-2019 Start: 03-15-2019 End: 04-28-2019 Start: 03-15-2019 End: 04-28-2019 take 1 puff(s) by inhalation twice daily Fluticasone Propion-Salmeterol (Advair Hfa) 115-21 mcg/actuation HFA aerosol inhaler Discontinued 2 PUFF INHALATION TWICE A DAY March 15, 2019 12:00am April 28, 2019 8:16am Start: 03-15-2019 End: 04-28-2019 take 1 puff(s) by inhalation twice daily Fluticasone Propion-Salmeterol (Advair Hfa) 115-21 mcg/actuation HFA aerosol inhaler Discontinued 2 PUFF INHALATION TWICE A DAY March 15, 2019 1:00am April 28, 2019 9:16am Multivitamin preparation (20 sources) Start: 09-13-2022 take 1 tablet by mouth once daily Multivitamin Active 1 TABLET PO DAILY September 12, 2022 11:00pm Start: 09-13-2022 take 1 tablet by lupe th once daily Multivitamin Active 1 TABLET PO DAILY September 13, 2022 12:00am Start: 09-28-2019 End: 09-25-2020 take 1 tablet by mouth once daily Multivitamin Discontinued 1 TABLET PO DAILY September 28, 2019 2:09pm September 25, 2020 11:48am Start: 09-28-2019 End: 09-25-2020 take 1 tablet by mouth once daily Multivitamin Discontinued 1 TABLET PO DAILY September 27, 2019 11:00pm September 25, 2020 10:48am Start: 09-28-2019 End: 09-25-2020 take 1 tablet by mouth once daily Multivitamin Discontinued 1 TABLET PO DAILY September 28, 2019 12:00am September 25, 2020 11:48am Nebulizer (6 sources) Start: 06-19-2021 Nebulizer Acti ve 0 .ROUTE .MEDSUPPLY June 19, 2021 7:42am As directed Start: 06-19-2021 Nebulizer Acti ve 0 .ROUTE .MEDSUPPLY June 19, 2021 12:00am As directed pantoprazole 40 mg delayed r elease oral tablet (20 sources) Proton Pump Inhibitor Start: 06-28-2024 Start: 09-04-2022 End: 06-22-2024 Start: 10-26-2021 End: 08-14-2022 Start: 05-04-2021 End: 06-21-2021 tamsulosin hydrochloride 0.4 mg oral capsule (20 sources) alpha-Adrenergic Avinash Start: 08-14-2022 100 ml vancomycin 5 mg/ml injection (10 sources) Glycopeptide Antibacterial Start: 06-24-2024 vitamin b12 1 mg oral capsule (9 sources) Vitamin B12 Start: 01-29-2021 take 1000 ug by mouth once daily Cyanocobalamin (Vitamin B-12) Active 1000 MCG PO DAILY January 29, 2021 1:00am (20 sources) Start: 07-20-2024 Start: 06-28-2024 End: 07-08-2024 Start: 06-28-2024 Start: 06-25-2024 Start: 06-25-2024 End: 06-28-2024 Start: 05-18-2024 End: 06-22-2024 Start: 04-05-2024 Start: 03-08-2024 End: 06-25-2024 Start: 03-03-2024 End: 03-08-2024 Start: 12-24-2023 End: 03-03-2024 Start: 12-24-2023 Start: 12-03-2023 Start: 11-24-2023 End: 12-24-2023 Start: 11-12-2023 Start: 11-12-2023 End: 12-03-2023 Start: 05-07-2023 End: 05-12-2023 Start: 05-07-2023 End: 05-12-2023 Start: 03-21-2023 End: 04-05-2024 Start: 03-21-2023 End: 11-12-2023 Start: 03-21-2023 Start: 03-07-2023 End: 07-08-2024 Start: 03-07-2023 Start: 03-07-2023 End: 03-07-2023 Start: 03-02-2023 End: 05-07-2023 Start: 03-02-2023 Start: 09-13-2022 Start: 06-25-2022 End: 09-13-2022 Start: 06-19-2021 Start: 05-04-2021 End: 05-16-2021 Start: 05-04-2021 End: 05-04-2021 Start: 05-04-2021 End: 05-04-2021 Start: 04-29-2021 End: 05-04-2021 Start: 04-29-2021 End: 05-16-2021 Start: 04-29-2021 End: 05-16-2021 Start: 04-29-2021 End: 05-04-2021 Start: 04-26-2021 End: 05-16-2021 Start: 04-26-2021 End: 04-26-2021 Start: 04-26-2021 End: 04-26-2021 Start: 04-04-2021 End: 04-11-2021 Start: 04-04-2021 End: 04-11-2021 Start: 09-28-2019 End: 09-25-2020 Start: 09-28-2019 End: 09-25-2020 Start: 09-13-2019 End: 09-28-2019 Start: 09-13-2019 End: 09-28-2019 Start: 09-11-2013 End: 09-13-2019 Start: 09-11-2013 End: 09-13-2019 Completed/Discontinued Medications Medication Drug Class(es) Dates Sig (Normalized) Sig (Original) albuterol 0.83 mg/ml inhalation solution (20 sources) beta2-Adrenergic Agonist Start: 10-21-2022 End: 09-19-2023 Start: 10-21-2022 End: 01-13-2023 Start: 06-25-2022 End: 09-13-2022 take 2.5 mg by inhalation every six hours Albuterol Sulfate Discontinued 2.5 MG INHALATION EVERY 6 HOURS 180 June 24, 2022 11:00pm September 13, 2022 10:45am Start: 06-25-2022 End: 09-13-2022 take 2.5 mg by inhalation every six hours Albuterol Sulfate Discontinued 2.5 MG INHALATION EVERY 6 HOURS 180 June 25, 2022 12:00am September 13, 2022 11:45am Start: 06-25-2022 take 2.5 mg by inhal ation every six hours Albuterol Sulfate Active 2.5 MG INHALATION EVERY 6 HOURS 180 June 25, 2022 12:00am Start: 04-11-2021 End: 05-16-2021 take 1 puff(s) by inhalation every six hours Albuterol Sulfate Discontinued 2 PUFF INHALATION EVERY 6 HOURS 6.7 April 11, 2021 10:58am May 16, 2021 8:24pm Start: 04-11-2021 End: 05-16-2021 Start: 04-11-2021 End: 05-16-2021 Start: 04-11-2021 End: 05-16-2021 Start: 04-11-2021 End: 05-16-2021 take 1 puff(s) by inhalation every six hours Albuterol Sulfate Discontinued 2 PUFF INHALATION EVERY 6 HOURS 6.7 April 11, 2021 12:00am May 16, 2021 7:24pm amiodarone hydrochloride 200 mg oral tablet (15 sources) Antiarrhythmic Start: 03-21-2023 End: 04-03-2023 Start: 03-21-2023 End: 04-03-2023 apixaban 5 mg oral tablet (20 sources) Factor Xa Inhibitor Start: 03-06-2023 End: 03-21-2023 Start: 04-26-2021 End: 05-04-2021 aspirin 81 mg chewable tablet (20 sources) Platelet Aggregation Inhibitor, Nonsteroidal Anti-inflammatory Drug Start: 11-24-2023 End: 12-03-2023 Start: 12-31-2021 End: 05-07-2023 Start: 09-28-2019 End: 10-26-2021 Start: 09-11-2013 End: 09-13-2019 atorvastatin 40 mg oral tablet (20 sources) HMG-CoA Reductase Inhibitor Start: 10-09-2021 take 20 mg by mouth at bedtime Atorvastatin Active 20 MG PO AT BEDTIME October 09, 2021 1:19pm Start: 10-01-2021 End: 10-09-2021 take 60 mg by mouth at bedtime Atorvastatin Discontinu ed 60 MG PO AT BEDTIME October 01, 2021 5:48pm October 09, 2021 1:20pm Start: 04-21-2021 End: 09-18-2023 Start: 04-21-2021 End: 10-09-2021 Start: 04-21-2021 End: 10-01-2021 take 40 mg by mouth at bedtime Atorvastatin Discontinu ed 40 MG PO AT BEDTIME June 21, 2021 11:35am October 01, 2021 5:48pm Start: 05-22-2016 End: 09-12-2020 Start: 05-22-2016 End: 09-12-2020 Start: 05-22-2016 End: 09-12-2020 take 40 mg by mouth at bedtime Atorvastatin Discontinu ed 40 MG PO AT BEDTIME 90 April 13, 2020 12:04pm September 12, 2020 11:35am azithromycin 500 mg oral tab let (20 sources) Macrolide Antimicrobial Start: 03-02-2023 End: 03-16-2023 Start: 10-26-2021 take 500 mg by mouth once daily Azithromycin Active 500 MG PO DAILY 2 October 26, 2021 12:00am Start: 06-26-2020 End: 07-17-2020 Start: 06-26-2020 End: 07-17-2020 Start: 06-26-2020 End: 07-17-2020 Azithromycin Discontinued 0 PO .COMPLEX June 25, 2020 11:00pm July 17, 2020 10:39am take 500 mg today (day 1), then 250 mg for 4 days (days 2-5) PO budesonide 0.5 mg/ml inhalat ion suspension (20 sources) Corticosteroid Start: 06-05-2022 End: 09-19-2023 Start: 06-05-2022 End: 11-15-2022 Start: 06-05-2022 End: 11-15-2022 Start: 06-05-2022 End: 11-15-2022 take 1 mg by inhalation twice daily Budesonide Discontinued 1 MG INHALATION TWICE A DAY 60 June 04, 2022 11:00pm November 15, 2022 6:21pm Start: 11-02-2021 take 1 mg by inhalat ion twice daily Budesonide Active 1 MG INHALATION TWICE A DAY 60 November 01, 2021 11:00pm calcium carbonate 1500 mg or al tablet (20 sources) Start: 08-07-2021 End: 10-01-2021 cefdinir 300 mg oral capsule (12 sources) Cephalosporin Antibacterial Start: 11-12-2023 End: 11-24-2023 Start: 12-11-2021 take 300 mg by mouth twice hong ly Cefdinir Active 300 MG PO TWICE A DAY December 11, 2021 12:00am cetirizine hydrochloride 10 mg oral capsule (20 sources) Histamine-1 Receptor Antagonist Start: 03-15-2019 End: 04-28-2019 Start: 03-15-2019 End: 04-28-2019 Start: 03-15-2019 End: 04-28-2019 Cetirizine (Zyrtec) 10 mg ca psule Discontinued PO March 15, 2019 12:00am April 28, 2019 8:15am dexamethasone 6 mg oral tabl et (20 sources) Corticosteroid Start: 11-11-2023 End: 11-24-2023 Start: 04-04-2021 End: 04-11-2021 12 hr dextromethorphan hydrobromide 60 mg / guaiFENesin 1200 mg extended release oral tablet (10 sources) Uncompetitive X-ddhnqb-O-aspartate Receptor Antagonist, Sigma-1 Agonist Start: 11-11-2023 End: 03-03-2024 docusate sodium 50 mg / sennosides, alf 8.6 mg oral tablet (20 sources) Start: 03-21-2023 End: 09-15-2023 Start: 03-21-2023 End: 03-27-2023 doxycycline hyclate 100 mg o ral tablet (20 sources) Tetracycline-class Drug Start: 06-25-2021 End: 07-17-2021 Start: 04-04-2021 End: 04-11-2021 take 100 mg by mouth twice daily Doxycycline Hyclate Discontinued 100 MG PO TWICE A DAY April 04, 2021 12:00am April 11, 2021 9:55am Take medication with a few crackers on an otherwise empty stomach with a small amount of water. Do not take with dairy. Do not eat or drink for 20 to 30 minutes afterwards. escitalopram 10 mg oral tabl et (20 sources) Serotonin Reuptake Inhibitor Start: 05-04-2021 End: 10-29-2023 famotidine 20 mg oral tablet (20 sources) Histamine-2 Receptor Antagonist Start: 03-15-2019 End: 09-28-2019 ferrous sulfate 325 mg oral tablet (20 sources) Start: 07-18-2020 End: 03-21-2023 Start: 07-18-2020 End: 09-13-2022 Start: 07-18-2020 End: 09-13-2022 take 325 mg by mouth twice daily Ferrous Sulfate Discontinued 325 MG PO TWICE A DAY April 26, 2021 4:20pm September 13, 2022 10:46am Start: 09-28-2019 End: 09-25-2020 Start: 09-13-2019 End: 09-28-2019 Fluad Quad (65yr up)(PF) 60 mcg (15 mcg x 4)/0.5mL IM syringe (flu vac (7 sources) Start: 01-29-2021 End: 01-29-2021 Fluad Quad (65yr up)(PF) 60 mcg (15 mcg x 4)/0.5mL IM syringe (flu vac Discontinued 60 MCG IM ONCE 0.5 January 29, 2021 12:01pm January 29, 2021 1:51pm Start: 01-29-2021 End: 01-29-2021 fluconazole 100 mg oral tabl et (10 sources) Azole Antifungal Start: 11-24-2023 End: 03-03-2024 fluticasone propionate 0.05 mg/actuat metered dose nasal spray (20 sources) Corticosteroid Start: 09-13-2019 End: 09-28-2019 Start: 09-13-2019 End: 09-28-2019 Fluticasone Propionate Disco ntinued 1 SPRAY INTRANASAL DAILY September 12, 2019 11:00pm September 28, 2019 1:09pm furosemide 40 mg oral tablet (20 sources) Loop Diuretic Start: 03-04-2023 End: 03-08-2024 Start: 11-17-2022 End: 01-28-2023 Start: 09-03-2021 take 1 tablet by lupe th once daily Furosemide (Lasix) 20 mg tablet Active 20 MG PO DAILY September 03, 2021 12:00am glimepiride 2 mg oral tablet (20 sources) Sulfonylurea Start: 01-29-2021 End: 05-04-2021 Start: 01-29-2021 End: 05-04-2021 take 2 mg by mouth twice daily Glimepiride Discontinue d 2 MG PO TWICE A DAY April 26, 2021 4:20pm May 04, 2021 11:08am Take with supper. Start: 09-11-2013 End: 01-29-2021 glucagon (rdna) 1 mg injecti on (20 sources) Antihypoglycemic Agent Start: 05-04-2021 End: 05-16-2021 Start: 05-04-2021 End: 05-16-2021 Start: 05-04-2021 End: 05-16-2021 inject 1 mg by intramuscular injection once Glucagon (Glucagen Diagnostic Kit) 1 mg/mL Recon Soln Discontinued 1 MG IM ONE TIME 0 May 04, 2021 12:00am May 16, 2021 7:25pm guaiFENesin 20 mg/ml oral so lution (20 sources) Start: 05-07-2023 End: 11-11-2023 Start: 05-07-2023 Start: 03-16-2023 End: 03-21-2023 Start: 03-16-2023 End: 03-21-2023 Start: 12-11-2021 take 1 tablet by lupe th twice daily, then take 1 tablet by mouth every twelve hours Guaifenesin (Mucus Relief Er) 1,200 mg Tablet Extended Release 12hr Active 1200 MG PO TWICE A DAY 14 December 10, 2021 11:00pm 3 ml insulin aspart, human 1 00 unt/ml pen injector (20 sources) Insulin Analog Start: 03-22-2023 End: 11-24-2023 Start: 03-22-2023 3 ml insulin glargine 100 un t/ml pen injector (20 sources) Insulin Analog Start: 11-11-2023 End: 11-24-2023 Start: 12-11-2021 Insulin Glargi ne (Lantus Solostar U-100 Insulin) 100 unit/mL (3 mL) insulin pen Active 10 UNIT SC TWICE A DAY December 11, 2021 12:00am Start: 12-22-2019 End: 09-25-2020 Insulin Glargine Discontinue d 30 UNIT SC AT BEDTIME December 22, 2019 1:21pm September 25, 2020 10:47am Start: 09-13-2019 End: 12-22-2019 Insulin Glargine Discontinue d 28 UNIT SC AT BEDTIME September 13, 2019 12:45pm December 22, 2019 1:22pm Start: 05-22-2016 End: 09-25-2020 Start: 05-22-2016 End: 09-25-2020 Start: 05-22-2016 End: 09-13-2019 inject 30 [IU] by subcutaneous injection at bedtime Insulin Glargine Discontinued 30 UNIT SQ AT BEDTIME May 21, 2016 11:00pm September 13, 2019 12:47pm 3 ml insulin lispro 100 unt/ ml pen injector (20 sources) Insulin Analog Start: 11-24-2023 End: 06-22-2024 Start: 05-04-2021 End: 05-16-2021 Start: 05-04-2021 End: 05-16-2021 ipratropium bromide 0.2 mg/m l inhalation solution (20 sources) Anticholinergic Start: 06-25-2022 End: 09-19-2023 Start: 06-25-2022 End: 01-13-2023 Start: 06-25-2022 End: 01-13-2023 take 1 mL by inhalation every six hours Ipratropium Arimo Discontinued 2.5 ML INHALATION EVERY 6 HOURS 450 October 20, 2022 11:00pm November 15, 2022 6:20pm Start: 09-28-2019 End: 06-23-2020 Lactobacillus Combination No.8 (Adult Probiotic) 3 billion cell capsule (20 sources) Start: 09-13-2019 End: 09-28-2019 take 3 capsules by mouth once daily Lactobacillus Combination No.8 (Adult Probiotic) 3 billion cell capsule Discontinued 3000 MMU CELLS PO DAILY September 13, 2019 1:48pm September 28, 2019 2:08pm administer with a meal Start: 09-13-2019 End: 09-28-2019 take 3 capsules by mouth once daily Lactobacillus Combination No.8 (Adult Probiotic) 3 billion cell capsule Discontinued 3000 MMU CELLS PO DAILY September 12, 2019 11:00pm September 28, 2019 1:08pm administer with a meal Start: 09-13-2019 End: 09-28-2019 take 3 capsules by mouth once daily Lactobacillus Combination No.8 (Adult Probiotic) 3 billion cell capsule Discontinued 3000 MMU CELLS PO DAILY September 13, 2019 12:00am September 28, 2019 2:08pm administer with a meal levoFLOXacin 750 mg oral tab let (20 sources) Quinolone Antimicrobial Start: 04-08-2024 End: 05-18-2024 Start: 03-09-2024 End: 03-16-2024 Start: 07-17-2021 End: 07-26-2021 lisinopril 2.5 mg oral tablet (20 sources) Angiotensin Converting Enzyme Inhibitor Start: 11-17-2022 End: 03-02-2023 losartan potassium 25 mg oral tablet (20 sources) Angiotensin 2 Receptor Avinash Start: 05-22-2016 End: 10-03-2020 Menthol / Zinc Oxide (20 sources) Start: 05-04-2021 End: 05-16-2021 Menthol-Zinc Oxide (Calmoseptine) 0.44-20.6 % ointment Discontinued 1 APPLIC TOPICAL THREE TIMES A DAY May 04, 2021 3:02pm May 16, 2021 7:26pm Start: 05-04-2021 End: 05-16-2021 Menthol-Zinc Oxide (Calmosep sruthi) 0.44-20.6 % ointment Discontinued 1 APPLIC TOPICAL THREE TIMES A DAY May 04, 2021 4:02pm May 16, 2021 8:26pm Start: 05-04-2021 End: 05-04-2021 Menthol-Zinc Oxide (Calmosep sruthi) 0.44-20.6 % Ointment Discontinued 1 APPLIC TOPICAL THREE TIMES A DAY 0 May 04, 2021 12:01pm May 04, 2021 4:02pm Start: 05-04-2021 End: 05-04-2021 Menthol-Zinc Oxide (Calmosep sruthi) 0.44-20.6 % Ointment Discontinued 1 APPLIC TOPICAL THREE TIMES A DAY 0 May 04, 2021 12:00am May 04, 2021 3:02pm Start: 05-04-2021 End: 05-04-2021 Menthol-Zinc Oxide (Calmosep sruthi) 0.44-20.6 % Ointment Discontinued 1 APPLIC TOPICAL THREE TIMES A DAY 0 May 04, 2021 1:00am May 04, 2021 4:02pm metFORMIN hydrochloride 500 mg oral tablet (20 sources) Biguanide Start: 01-29-2021 End: 05-16-2021 Start: 09-11-2013 End: 01-29-2021 Start: 09-11-2013 End: 01-29-2021 take 1000 mg by mouth twice daily Metformin Discontinued 1000 MG PO TWICE A DAY 180 June 15, 2020 7:13am January 29, 2021 11:41am metoprolol tartrate 25 mg or al tablet (20 sources) beta-Adrenergic Avinash Start: 03-06-2023 End: 05-07-2023 Start: 09-11-2013 End: 02-28-2023 Start: 09-11-2013 End: 02-28-2023 Start: 09-11-2013 End: 10-09-2021 take 25 mg by mouth twice daily Metoprolol Tartrate Discontinued 25 MG PO TWICE A DAY 180 September 12, 2020 11:35am April 26, 2021 4:21pm mirtazapine 15 mg oral table t (20 sources) Start: 04-29-2021 End: 10-29-2023 Start: 04-29-2021 End: 11-04-2022 Start: 04-29-2021 End: 11-04-2022 take 7.5 mg by mouth at bedtime Mirtazapine (Remeron) 15 mg tablet Discontinued 7.5 MG PO AT BEDTIME 90 June 21, 2021 11:35am December 08, 2021 7:17pm Multivitamin,Ee-Lwbu-Elntamv s (20 sources) Start: 09-11-2013 End: 09-13-2019 take 1 tablet by mouth once daily Multivitamin,Bt-Enke-Hpemyhho Discontinued 1 TABLET PO DAILY September 11, 2013 1:21pm September 13, 2019 1:47pm Start: 09-11-2013 End: 09-13-2019 take 1 tablet by mouth once daily Multivitamin,Nr-Fazv-Dnpamozq Discontinu ed 1 TABLET PO DAILY September 10, 2013 11:00pm September 13, 2019 12:47pm Start: 09-11-2013 End: 09-13-2019 take 1 tablet by mouth once daily Multivitamin,Uq-Titw-Eedamjvc Discontinu ed 1 TABLET PO DAILY September 11, 2013 12:00am September 13, 2019 1:47pm nitroglycerin 0.4 mg subling ual tablet (20 sources) Nitrate Vasodilator Start: 03-15-2019 End: 04-05-2024 Start: 03-15-2019 End: 09-25-2020 Start: 03-15-2019 End: 09-25-2020 Nitroglycerin (Nitrostat) 0. 4 mg tablet, sublingual Active 0.4 MG SL Q5M September 25, 2020 11:57am until response; do not exceed 3 doses per episode Nut.Tx.Gluc Intol,Lf,Soy-Fiber (Glucerna 1.2 Anthony) 0.06-1.2 gram-kcal/mL Liquid (20 sources) Start: 04-26-2021 End: 04-26-2021 take 1 mL by mouth four times daily Nut.Tx.Gluc Intol,Lf,Soy-Fiber (Glucerna 1.2 Anthony) 0.06-1.2 gram-kcal/mL Liquid Discontinued 120 ML PO 4 TIMES DAILY 0 April 26, 2021 12:11pm April 26, 2021 5:21pm Start: 04-26-2021 End: 04-26-2021 take 1 mL by mouth four times daily Nut.Tx.Gluc Intol,Lf,Soy-Fiber (Glucerna 1.2 Anthony) 0.06-1.2 gram-kcal/mL Liquid Discontinued 120 ML PO 4 TIMES DAILY 0 April 26, 2021 12:00am April 26, 2021 4:21pm Start: 04-26-2021 End: 04-26-2021 take 1 mL by mouth four times daily Nut.Tx.Gluc Intol,Lf,Soy-Fiber (Glucerna 1.2 Anthony) 0.06-1.2 gram-kcal/mL Liquid Discontinued 120 ML PO 4 TIMES DAILY 0 30 April 26, 2021 1:00am April 26, 2021 5:21pm Nut.Tx.Gluc Intol,Lf,Soy-Fiber (Glucerna 1.2 Anthony) 0.06-1.2 gram-kcal/mL liquid (20 sources) Start: 04-26-2021 End: 05-16-2021 take 1 mL by mouth four times daily Nut.Tx.Gluc Intol,Lf,Soy-Fiber (Glucerna 1.2 Anthony) 0.06-1.2 gram-kcal/mL liquid Discontinued 120 ML PO 4 TIMES DAILY April 26, 2021 4:20pm May 16, 2021 7:24pm Start: 04-26-2021 End: 05-16-2021 take 1 mL by mouth four times daily Nut.Tx.Gluc Intol,Lf,Soy-Fiber (Glucerna 1.2 Anthony) 0.06-1.2 gram-kcal/mL liquid Discontinued 120 ML PO 4 TIMES DAILY April 26, 2021 5:20pm May 16, 2021 8:24pm piperacillin 3000 mg / tazobactam 375 mg injection (20 sources) Penicillin-class Antibacterial, beta Lactamase Inhibitor Start: 04-29-2021 End: 05-04-2021 Start: 04-29-2021 End: 05-04-2021 Start: 04-29-2021 End: 05-04-2021 take 3.375 g intravenously every eight hours Piperacillin-Tazobactam (Zosyn) 3.375 gram Recon Soln Discontinued 3.375 GM IV Q8H April 29, 2021 12:00am May 04, 2021 11:00am polyethylene glycol 3350 170 00 mg powder for oral solution (20 sources) Osmotic Laxative Start: 03-21-2023 End: 09-15-2023 Start: 04-29-2021 End: 05-16-2021 microencapsulated potassium chloride 10 meq extended release oral tablet (20 sources) Start: 05-16-2021 End: 08-14-2022 predniSONE 20 mg oral tablet (20 sources) Start: 06-25-2024 End: 07-08-2024 Start: 04-08-2024 End: 05-18-2024 Start: 05-28-2023 End: 11-24-2023 Start: 03-02-2023 End: 03-21-2023 Start: 02-16-2022 End: 02-27-2022 Start: 12-11-2021 take 40 mg by mouth at [facility] Prednisone Active 40 MG PO WITH BREAKFAST December 11, 2021 12:00am Start: 10-26-2021 End: 11-02-2021 Start: 06-25-2021 End: 07-17-2021 Start: 04-11-2021 End: 04-26-2021 Start: 04-11-2021 End: 04-26-2021 Prednisone Discontinued 0 MG PO DAILY April 11, 2021 12:00am April 26, 2021 11:06am 40 mg for 3 days, 30 mg for 3 days, 20 mg for 3 days, 10 mg for 3 days Start: 06-23-2020 End: 09-25-2020 Start: 03-15-2019 End: 09-25-2020 Start: 03-15-2019 End: 09-25-2020 take 1.25 mg by mouth every other day Prednisone Discontinued 1.25 MG PO every other day March 16, 2019 8:45am September 25, 2020 10:46am 10 ml riTUXimab 10 mg/ml injection (20 sources) [id number] Cytolytic Antibody Start: 09-28-2019 End: 03-25-2021 rituximab 10 mg/mL concentrate,intravenous Discontinued 10 MG .Route DIRECTED September 28, 2019 1:07pm March 25, 2021 10:10am 375mg/ml IV 2 x year Start: 09-02-2017 End: 03-25-2021 Start: 09-02-2017 End: 03-25-2021 Start: 09-02-2017 End: 09-28-2019 rituximab 10 mg/mL concentra te,intravenous Discontinued MG .Route September 01, 2017 11:00pm September 28, 2019 1:10pm 375mg/ml IV 2 x weekly Senna-Docusate Sodium (20 sources) Start: 04-29-2021 End: 05-16-2021 take 1 tablet by mouth once daily Senna-Docusate Sodium Discontinued 1 TABLET PO DAILY April 29, 2021 3:41pm May 16, 2021 8:26pm Start: 04-29-2021 End: 05-16-2021 take 1 tablet by mouth once daily Senna-Docusate Sodium Discontinued 1 TABLET PO DAILY April 29, 2021 12:00am May 16, 2021 7:26pm Start: 04-29-2021 End: 05-16-2021 take 1 tablet by mouth once daily Senna-Docusate Sodium Discontinued 1 TABLET PO DAILY April 29, 2021 1:00am May 16, 2021 8:26pm spironolactone 25 mg oral ta blet (10 sources) Aldosterone Antagonist Start: 09-15-2023 End: 09-24-2023 sucralfate 1000 mg oral tabl et (20 sources) Aluminum Complex Start: 09-04-2022 End: 02-28-2023 Start: 12-11-2021 Sucralfate Act crystal 1 GM PO 0700,[id number] December 11, 2021 12:00am Start: 10-26-2021 take 1 g by mouth fo ur times daily Sucralfate Active 1 GM PO 4 TIMES DAILY 120 30 October 26, 2021 12:00am Start: 05-04-2021 End: 06-22-2021 Vancomycin In 0.9 % Sodium C hl (20 sources) Start: 04-29-2021 End: 05-04-2021 Vancomycin In 0.9 % Sodium C hl Discontinued 125 MG IV Q12H April 29, 2021 3:46pm May 04, 2021 12:00pm Start: 04-29-2021 End: 05-04-2021 Vancomycin In 0.9 % Sodium C hl Discontinued 125 MG IV Q12H April 29, 2021 12:00am May 04, 2021 11:00am Start: 04-29-2021 End: 05-04-2021 Vancomycin In 0.9 % Sodium C hl Discontinued 125 MG IV Q12H April 29, 2021 1:00am May 04, 2021 12:00pm Problems Active Problems Problem Classification Problem Date Documented Da te Episodic/Chronic Acute and unspecified renal failure (20 sources) Acute renal failure syndrome; Translations: [Acute kidney failure, unspecified] 03-16-2023 Episodic Asthma (20 sources) Asthma; Translations: [Unspecified asthma, uncomplicated] Chronic Bacterial infection; unspecified site (20 sources) Bacteremia due to Methicillin resistant Staphylococcus aureus; Translations: [Bacteremia] Onset: 06-28-2024 06-22-2024 Episodic Cardiac dysrhythmias (20 sources) Atrial fibrillation; Translations: [Unspecified atrial fibrillation] 06-20-2024 Chronic Chronic kidney disease (20 sources) Chronic kidney disease stage 3; Translations: [Stage 3 chronic kidney disease] 11-15-2022 Chronic Chronic obstructive pulmonary disease and bronchiectasis (20 sources) Chronic obstructive lung disease; Translations: [Chronic obstructive pulmonary disease, unspecified] Onset: 09-19-2023 Chronic Chronic obstructive pulmonary disease and bronchiectasis (20 sources) Bronchitis; Translations: [Bronchitis, not specified as acute or chronic] 09-29-2021 Episodic Chronic ulcer of skin (15 sources) Pressure ulcer of buttock; Translations: [Pressure ulcer of unspecified buttock, unspecified stage] 03-31-2023 Chronic Congestive heart failure; nonhypertensive (20 sources) Heart failure; Translations: [Heart failure, unspecified] Onset: 10-30-2023 11-15-2022 Chronic Coronary atherosclerosis and other heart disease (20 sources) Coronary arteriosclerosis; Translations: [Atherosclerotic heart disease of [place] coronary artery without angina pectoris] Chronic Deficiency and other anemia (20 sources) Anemia; Translations: [Anemia, unspecified] 05-26-2021 Episodic Deficiency and other anemia (20 sources) Iron deficiency anemia; Translations: [Iron deficiency anemia, unspecified] 02-05-2022 Episodic Deficiency and other anemia (20 sources) Iron deficiency anemia, unspecified; Translations: [Iron deficiency anemia, unspecified] Onset: 07-20-2024 Episodic Deficiency and other anemia (20 sources) Anemia, unspecified; Translations: [Anemia, unspecified] Onset: 04-16-2024 Episodic Deficiency and other anemia (20 sources) Iron-refractory iron deficiency anemia; Translations: [Other iron deficiency anemias] 02-05-2022 Episodic Deficiency and other anemia (20 sources) Other iron deficiency anemias; Translations: [Other specified iron deficiency anemias] Onset: 07-20-2024 Episodic Diabetes mellitus without complication (20 sources) Diabetes mellitus; Translations: [Type 2 diabetes mellitus without complications] Onset: 08-03-2024 Chronic Diabetes mellitus without complication (20 sources) Hyperglycemia; Translations: [Hyperglycemia, unspecified] Onset: 08-03-2024 Episodic Diseases of white blood cells (20 sources) Leukocytosis; Translations: [Elevated white blood cell count, unspecified] Chronic Disorders of lipid metabolism (20 sources) Hyperlipidemia; Translations: [Hyperlipidemia, unspecified] Chronic E Codes: Fall (20 sources) Fall; Translations: [Unspecified fall, initial encounter] 03-16-2023 Episodic Essential hypertension (20 sources) Essential hypertension; Translations: [Essential (primary) hypertension] Onset: 09-15-2023 Chronic Gastritis and duodenitis (20 sources) Gastritis; Translations: [Gastritis, unspecified, without bleeding] 09-29-2021 Episodic Genitourinary symptoms and ill-defined conditions (20 sources) Blood in urine; Translations: [Hematuria, unspecified] 04-29-2022 Episodic Immunizations and screening for infectious disease (20 sources) Contact with or exposure to other viral diseases; Translations: [Lab test negative for COVID-19 virus] 09-29-2021 Episodic Intestinal obstruction without hernia (20 sources) Intestinal obstruction co-occurrent and due to decreased peristalsis; Translations: [Ileus, unspecified] Episodic Malaise and fatigue (20 sources) Asthenia; Translations: [Other malaise] Episodic Non-Hodgkin`s lymphoma (20 sources) Non-Hodgkin's lymphoma (clinical); Translations: [Non-Hodgkin lymphoma, unspecified, unspecified site] Onset: 08-03-2024 Chronic Non-Hodgkin`s lymphoma (20 sources) History of non-Hodgkins lymphoma; Translations: [Personal history of non-Hodgkin lymphomas] Episodic Nutritional deficiencies (20 sources) Vitamin D deficiency; Translations: [Vitamin D deficiency, unspecified] Onset: 08-03-2024 Chronic Nutritional deficiencies (20 sources) Cobalamin deficiency; Translations: [Deficiency of other specified B group vitamins] Onset: 08-03-2024 Episodic Other aftercare (3 sources) Patient encounter status; Translations: [Encounter for therapeutic drug level monitoring] 05-02-2023 Episodic Other aftercare (10 sources) Long-term current use of diuretic; Translations: [Encounter for therapeutic drug level monitoring] 05-02-2023 Episodic Other and unspecified benign neoplasm (20 sources) Polyp of colon; Translations: [Polyp of colon] 09-29-2021 Episodic Other circulatory disease (20 sources) Inferior vena cava filter in situ; Translations: [Presence of other vascular implants and grafts] Onset: 04-24-2021 09-29-2021 Chronic Other circulatory disease (16 sources) Low blood pressure; Translations: [Hypotension, unspecified] 03-16-2023 Episodic Other circulatory disease (6 sources) Hypotension, unspecified; Translations: [Hypotension, unspecified] 03-16-2023 Episodic Other connective tissue disease (20 sources) Swelling of lower limb; Translations: [Other specified soft tissue disorders] 09-29-2021 Episodic Other connective tissue disease (8 sources) Other specified soft tissue disorders; Translations: [Swelling of limb] Onset: 08-03-2024 Episodic Other gastrointestinal disorders (20 sources) Stool DNA-based colorectal cancer screening positive; Translations: [Other fecal abnormalities] 09-29-2021 Episodic Other gastrointestinal disorders (20 sources) Occult blood in stools; Translations: [Other fecal abnormalities] 04-05-2024 Episodic Other lower respiratory disease (20 sources) Hypoxemia; Translations: [Hypoxemia] 04-12-2021 Episodic Other lower respiratory disease (20 sources) Dyspnea; Translations: [Dyspnea, unspecified] 12-19-2021 Episodic Other lower respiratory disease (20 sources) Nodule of lung; Translations: [Solitary pulmonary nodule] 09-29-2021 Episodic Other lower respiratory disease (20 sources) Hypoxia; Translations: [Hypoxemia] 04-02-2021 Episodic Other lower respiratory disease (20 sources) Dyspnea, unspecified; Translations: [Other respiratory abnormalities] Episodic Other lower respiratory disease (20 sources) Dyspnea on exertion; Translations: [Other forms of dyspnea] 12-19-2021 Episodic Other lower respiratory disease (18 sources) History of chronic obstructive airway disease; Translations: [Personal history of other diseases of the respiratory system] 02-28-2023 Episodic Other lower respiratory disease (13 sources) Personal history of other diseases of the respiratory system; Translations: [Personal history of other diseases of respiratory system] 02-28-2023 Episodic Other lower respiratory disease (20 sources) Respiratory insufficiency; Translations: [Other abnormalities of breathing] 04-05-2024 Episodic Other lower respiratory disease (1 source) Shortness of breath; Translations: [Shortness of breath] Onset: 06-30-2024 Episodic Other nervous system disorders (20 sources) Disorder of brain; Translations: [Encephalopathy, unspecified] 02-24-2022 Chronic Other nervous system disorders (11 sources) Encephalopathy, unspecified; Translations: [Encephalopathy, unspecified] Chronic Other nervous system disorders (10 sources) Metabolic encephalopathy; Translations: [Metabolic encephalopathy] 11-19-2023 Chronic Other nervous system disorders (1 source) Metabolic encephalopathy; Translations: [Metabolic encephalopathy] Onset: 11-11-2023 Chronic Other nutritional; endocrine; and metabolic disorders (20 sources) Obesity; Translations: [Obesity, unspecified] 09-13-2019 Chronic Other nutritional; endocrine; and metabolic disorders (10 sources) Obesity, unspecified; Translations: [Obesity, unspecified] Chronic Other nutritional; endocrine; and metabolic disorders (20 sources) Hypoalbuminemia; Translations: [Other disorders of plasma-protein metabolism, not elsewhere classified] 09-29-2021 Chronic Other nutritional; endocrine; and metabolic disorders (20 sources) Hypocalcemia; Translations: [Hypocalcemia] 09-29-2021 Chronic Other nutritional; endocrine; and metabolic disorders (5 sources) Other disorders of plasma-protein metabolism, not elsewhere classified; Translations: [Other disorders of plasma protein metabolism] Chronic Other nutritional; endocrine; and metabolic disorders (8 sources) History of diabetes mellitus type 2; Translations: [Personal history of other endocrine, nutritional and metabolic disease] Episodic Other nutritional; endocrine; and metabolic disorders (20 sources) Loss of appetite; Translations: [Anorexia] 09-29-2021 Episodic Other nutritional; endocrine; and metabolic disorders (20 sources) Adult failure to thrive syndrome; Translations: [Adult failure to thrive] 04-02-2021 Episodic Other nutritional; endocrine; and metabolic disorders (12 sources) Personal history of other endocrine, nutritional and metabolic disease; Translations: [Personal history of other endocrine, metabolic, and immunity disorders] Episodic Other nutritional; endocrine; and metabolic disorders (16 sources) Anorexia; Translations: [Anorexia] Episodic Other screening for suspected conditions (not mental disorders or infectious disease) (20 sources) High troponin I level; Translations: [Other specified abnormal findings of blood chemistry] Onset: 08-03-2024 03-16-2023 Episodic Other upper respiratory infections (20 sources) Upper respiratory infection; Translations: [Acute upper respiratory infection, unspecified] 09-29-2021 Episodic Peripheral and visceral atherosclerosis (20 sources) Intermittent claudication; Translations: [Peripheral vascular disease, unspecified] 06-25-2024 Chronic Phlebitis; thrombophlebitis and thromboembolism (20 sources) Acute deep venous thrombosis; Translations: [Acute embolism and thrombosis of unspecified deep veins of unspecified lower extremity] Episodic Pleurisy; pneumothorax; pulmonary collapse (20 sources) Pleural effusion; Translations: [Pleural effusion, not elsewhere classified] Episodic Residual codes; unclassified (20 sources) Altered mental status; Translations: [Altered mental status, unspecified] 04-12-2021 Episodic Residual codes; unclassified (20 sources) Tobacco use and exposure - finding; Translations: [Tobacco use] 09-29-2021 Episodic Residual codes; unclassified (15 sources) Altered mental status, unspecified; Translations: [Altered mental status] Onset: 06-28-2024 Episodic Residual codes; unclassified (10 sources) Tobacco use; Translations: [Tobacco use disorder] Episodic Residual codes; unclassified (20 sources) Tobacco user; Translations: [Tobacco use] 09-29-2021 Episodic Residual codes; unclassified (20 sources) H/O: Disorder; Translations: [Personal history of other specified conditions] 02-27-2022 Episodic Residual codes; unclassified (6 sources) Personal history of other specified conditions; Translations: [Other specified conditions influencing health status] 02-27-2022 Episodic Residual codes; unclassified (1 source) Illness, unspecified; Translations: [Illness, unspecified] Onset: 07-12-2024 Episodic Respiratory failure; insufficiency; arrest (adult) (20 sources) [id number] respiratory failure; Translations: [Acute and chronic respiratory failure, unspecified whether with hypoxia or hypercapnia] Onset: 11-11-2023 Chronic Septicemia (except in labor) (20 sources) Septic shock; Translations: [Sepsis, unspecified organism] Onset: 06-28-2024 Episodic Shock (20 sources) Hemorrhagic shock; Translations: [Other shock] 03-16-2023 Episodic Substance-related disorders (20 sources) Tobacco dependence in remission; 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, cigarettes, in remission] Onset: 03-24-2024 02-27-2022 Chronic Syncope (20 sources) Syncope; Translations: [Syncope and collapse] 03-29-2023 Episodic Varicose veins of lower extremity (20 sources) Varicose veins of lower extremity; Translations: [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 complications] 09-29-2021 Episodic Viral infection (20 sources) Disease caused by 2019-nCoV; Translations: [COVID-19] Episodic Viral infection (2 sources) COVID-19; Translations: [COVID-19] Onset: 11-26-2023 Past or Other Problems Problem Classification Problem Date Documented Da te Episodic/Chronic Acute posthemorrhagic anemia (20 sources) Anemia due to blood loss; Translations: [Acute posthemorrhagic anemia] Onset: 4 03-29-2023 Episodic Coronary atherosclerosis and other heart disease (20 sources) Presence of coronary angioplasty implant and graft; Translations: [Percutaneous transluminal coronary angioplasty status] Onset: 4 Episodic Fluid and electrolyte disorders (20 sources) Acute hyperkalemia; Translations: [Hyperkalemia] Onset: 4 02-28-2023 Episodic Gastrointestinal hemorrhage (20 sources) Gastrointestinal hemorrhage; Translations: [Gastrointestinal hemorrhage, unspecified] Onset: 2 Episodic Nausea and vomiting (20 sources) Nausea and vomiting; Translations: [Nausea with vomiting, unspecified] Onset: 5 04-05-2024 Episodic Other gastrointestinal disorders (1 source) Other fecal abnormalities; Translations: [Other fecal abnormalities] Onset: 5 Episodic Other lower respiratory disease (20 sources) Hypoxemia; Translations: [Hypoxemia] Onset: 5 Episodic Other lower respiratory disease (10 sources) Other forms of dyspnea; Translations: [Other respiratory abnormalities] Onset: 4 Episodic Other lower respiratory disease (1 source) Other abnormalities of breathing; Translations: [Other abnormalities of breathing] Onset: 5 Episodic Other nutritional; endocrine; and metabolic disorders (16 sources) Adult failure to thrive; Translations: [Adult failure to thrive] Onset: 4 Episodic Pneumonia (except that caused by tuberculosis or sexually transmitted disease) (20 sources) Pneumonia; Translations: [Pneumonia, unspecified organism] Onset: 5 Episodic Pulmonary heart disease (20 sources) Pulmonary embolism; Translations: [Other pulmonary embolism without acute cor pulmonale] Onset: 2 Episodic Respiratory failure; insufficiency; arrest (adult) (20 sources) Acute respiratory failure; Translations: [Acute respiratory failure with hypoxia] Onset: 4 Episodic Urinary tract infections (20 sources) Acute cystitis; Translations: [Acute cystitis without hematuria] Onset: 4 11-19-2023 Episodic Results Test Name Value Interpretation Reference Range Facility Stool gastrointestinal hemog lobin detection by immunologic methodOrdered By: Tobi Zapata on 07-23-2024 Lower GI hemoglobin IA Ql (Stl) Positive Abnormal [facility] Anion gap in Serum or Plasma Ordered By: Wilberto Villafuerte on 07-21-2024 Anion gap [Moles/Vol] 7 mmol/L 5-15 [facility] BUN/creatinine ratioOrdered By: Wilberto Villafuerte on 07-21-2024 Urea nitrogen/Creatinine [Mass ratio] 25.7 mg/mg High 10-20 [facility] Carbon dioxide, total [Moles /volume] in Central venous bloodOrdered By: Wilberto Villafuerte on 07-21-2024 CO2 [Moles/Vol] 31.9 mmol/L 21.0-32.0 [facility] Chloride assayOrdered By: Anh Villafuerte on 07-21-2024 Chloride [Moles/Vol] 105 mmol/L 98-108 [facility] Erythrocyte distribution wid th ratioOrdered By: Wilberto Villafuerte on 07-21-2024 Erythrocyte distribution width (RBC) [Ratio] 20.5 % High 11.6-14.6 [facility] Erythrocyte distribution wid th standard deviationOrdered By: Wilberto Villafuerte on 07-21-2024 Erythrocyte distribution width (RBC) [Ratio] 75.2 fl High 35.1-43.9 [facility] Glomerular filtration rate ( GFR) estimation/1.73 sq m using serum, plasma, or whole bOrdered By: Wilberto Villafuerte on 07-21-2024 GFR/1.73 sq M.predicted among non-blacks MDRD (S/P/Bld) [Vol rate/Area] 59 mL/min/{1.73_m2} Low >60 [facility] Hematocrit Auto (Bld) [Volum e fraction]Ordered By: Wilberto Villafuerte on 07-21-2024 Hematocrit (Bld) [Volume fraction] 23.3 % Low 40-54 [facility] Hemoglobin measurementOrdere d By: Wilberto Villafuerte on 07-21-2024 Hemoglobin (Bld) [Mass/Vol] 7.0 g/dL Low 13.0-16.5 [facility] MCV (mean corpuscular volume ) determinationOrdered By: Wilberto Villafuerte on 07-21-2024 MCV (RBC) [Entitic vol] 100.9 fL High 80-94 [facility] Mean corpuscular hemoglobin (MCH) determinationOrdered By: Wilberto Villafuerte on 07-21-2024 MCH (RBC) [Entitic mass] 30.3 pg 27.0-32.0 [facility] Platelet countOrdered By: Anh Villafuerte on 07-21-2024 Platelets (Bld) [#/Vol] 235 10*3/uL 150-450 [facility] Potassium measurement (mass/ volume)Ordered By: Wilberto Villafuerte on 07-21-2024 Potassium (Unsp spec) [Mass/Vol] 4.9 mmol/L 3.3-5.1 [facility] RBC Auto (Bld) [#/Vol]Ordere d By: Wilberto Villafuerte on 07-21-2024 RBC (Bld) [#/Vol] 2.31 10*6/uL Low 4.6-6.2 [facility] Serum creatinine measurement (mass/volume)Ordered By: Wilberto Villafuerte on 07-21-2024 Creatinine [Mass/Vol] 1.27 mg/dL High 0.70-1.20 [facility] Serum glucose measurement (m ass/volume)Ordered By: Wilberto Villafuerte on 07-21-2024 Glucose [Mass/Vol] 178 mg/dL High 70-99 [facility] Serum or plasma calcium yocasta urement (mass/volume)Ordered By: Wilberto Villafuerte on 07-21-2024 Calcium [Mass/Vol] 8.7 mg/dL 7.6-11.0 [facility] Serum or plasma urea nitroge n measurement (mass/volume)Ordered By: Wilberto Villafuerte on 07-21-2024 Urea nitrogen [Mass/Vol] 33 mg/dL High 4-19 [facility] Sodium levelOrdered By: Jacob Villafuerte on 07-21-2024 Sodium [Moles/Vol] 144 mmol/L 133-145 [facility] Trough vancomycin levelOrder ed By: Wilberto Villafuerte on 07-21-2024 Vancomycin trough [Mass/Vol] 16.3 ug/mL High 5.0-15.0 [facility] White blood cell (WBC) count Ordered By: Wilberto Villafuerte on 07-21-2024 WBC (Bld) [#/Vol] 8.4 10*3/uL 4.4-11.0 [facility] Anion gap in Serum or Plasma Ordered By: Martha Dodson on 07-20-2024 Anion gap [Moles/Vol] 9 mmol/L 5-15 [facility] BUN/creatinine ratioOrdered By: Martha Dodson on 07-20-2024 Urea nitrogen/Creatinine [Mass ratio] 22.9 mg/mg High 10-20 [facility] Bilirubin, totalOrdered By: Martha Dodson on 07-20-2024 Bilirubin [Mass/Vol] 0.31 mg/dL 0.00-1.30 [facility] Carbon dioxide, total [Moles /volume] in Central venous bloodOrdered By: Martha Dodson on 07-20-2024 CO2 [Moles/Vol] 30.8 mmol/L 21.0-32.0 [facility] Chloride assayOrdered By: Dave Dodson on 07-20-2024 Chloride [Moles/Vol] 104 mmol/L 98-108 [facility] Glomerular filtration rate ( GFR) estimation/1.73 sq m using serum, plasma, or whole bOrdered By: Martha Dodson on 07-20-2024 GFR/1.73 sq M.predicted among non-blacks MDRD (S/P/Bld) [Vol rate/Area] 50 mL/min/{1.73_m2} Low >60 [facility] Iron measurement (mass/mass) Ordered By: Martha Dodson on 07-20-2024 Iron (Unsp spec) [Mass/Mass] 37 ug/dL Low 65-175 [facility] No Panel InformationOrdered By: Martha Dodson on 07-20-2024 14 U/L <38 [facility] 183 ug/dL Low 228-428 [facility] Potassium measurement (mass/ volume)Ordered By: Martha Dodson on 07-20-2024 Potassium (Unsp spec) [Mass/Vol] 4.6 mmol/L 3.3-5.1 [facility] Serum creatinine measurement (mass/volume)Ordered By: Martha Dodson on 07-20-2024 Creatinine [Mass/Vol] 1.46 mg/dL High 0.70-1.20 [facility] Serum globulin measurementOr dered By: Martha Dodson on 07-20-2024 Globulin (S) [Mass/Vol] 2.3 g/dL 2.2-4.2 [facility] Serum glucose measurement (m ass/volume)Ordered By: Martha Dodson on 07-20-2024 Glucose [Mass/Vol] 179 mg/dL High 70-99 [facility] Serum or plasma alanine barber otransferase (ALT) measurementOrdered By: Martha Dodson on 07-20-2024 ALT [Catalytic activity/Vol] 19 U/L <47 [facility] Serum or plasma albumin yocasta urement (mass/volume)Ordered By: Martha Dodson on 07-20-2024 Albumin [Mass/Vol] 3.7 g/dL 3.4-4.8 [facility] Serum or plasma albumin/glob ulin mass ratioOrdered By: Martha Dodson 07-20-2024 Albumin/Globulin [Mass ratio] 1.6 {ratio} 0.9-2.4 [facility] Serum or plasma alkaline justin sphatase measurementOrdered By: Martha Dodson 07-20-2024 ALP [Catalytic activity/Vol] 89 U/L 40-129 [facility] Serum or plasma calcium yocasta urement (mass/volume)Ordered By: Martha Dodson on 07-20-2024 Calcium [Mass/Vol] 8.8 mg/dL 7.6-11.0 [facility] Serum or plasma ferritin vasquez surement (mass/volume)Ordered By: Martha Dodson on 07-20-2024 Ferritin [Mass/Vol] 137 ng/mL 37-417 [facility] Serum or plasma iron saturat ion measurement (mass fraction)Ordered By: Martha Dodson on 07-20-2024 Iron saturation [Mass fraction] 16.8 % 9-55 [facility] Serum or plasma urea nitroge n measurement (mass/volume)Ordered By: Martha Dodson on 07-20-2024 Urea nitrogen [Mass/Vol] 34 mg/dL High 4-19 [facility] Sodium levelOrdered By: Martha Dodson on 07-20-2024 Sodium [Moles/Vol] 144 mmol/L 133-145 [facility] Total proteinOrdered By: Jayden Dodson on 07-20-2024 Protein [Mass/Vol] 6.0 g/dL 5.9-8.4 [facility] Anion gap in Serum or Plasma Ordered By: Wilberto Villafuerte on 07-14-2024 Anion gap [Moles/Vol] 10 mmol/L 5-15 [facility] BUN/creatinine ratioOrdered By: Wilberto Villafuerte on 07-14-2024 Urea nitrogen/Creatinine [Mass ratio] 28.0 mg/mg High 10-20 [facility] Carbon dioxide, total [Moles /volume] in Central venous bloodOrdered By: Wilberto Villafuerte on 07-14-2024 CO2 [Moles/Vol] 29.3 mmol/L 21.0-32.0 [facility] Chloride assayOrdered By: Anh Villafuerte on 07-14-2024 Chloride [Moles/Vol] 104 mmol/L 98-108 [facility] Glomerular filtration rate ( GFR) estimation/1.73 sq m using serum, plasma, or whole bOrdered By: Wilberto Villafuerte on 07-14-2024 GFR/1.73 sq M.predicted among non-blacks MDRD (S/P/Bld) [Vol rate/Area] 43 mL/min/{1.73_m2} Low >60 [facility] Potassium measurement (mass/ volume)Ordered By: Wilberto Villafuerte on 07-14-2024 Potassium (Unsp spec) [Mass/Vol] 5.1 mmol/L 3.3-5.1 [facility] Serum creatinine measurement (mass/volume)Ordered By: Wilberto Villafuerte on 07-14-2024 Creatinine [Mass/Vol] 1.65 mg/dL High 0.70-1.20 [facility] Serum glucose measurement (m ass/volume)Ordered By: Wilberto Villafuerte on 07-14-2024 Glucose [Mass/Vol] 135 mg/dL High 70-99 [facility] Serum or plasma calcium yocasta urement (mass/volume)Ordered By: Wilberto Villafuerte on 07-14-2024 Calcium [Mass/Vol] 8.6 mg/dL 7.6-11.0 [facility] Serum or plasma urea nitroge n measurement (mass/volume)Ordered By: Wilberto Villafuerte on 07-14-2024 Urea nitrogen [Mass/Vol] 46 mg/dL High 4-19 [facility] Sodium levelOrdered By: Jacob Villafuerte on 07-14-2024 Sodium [Moles/Vol] 143 mmol/L 133-145 [facility] Trough vancomycin levelOrder ed By: Wilberto Villafuerte on 07-14-2024 Vancomycin trough [Mass/Vol] 21.5 ug/mL High 5.0-15.0 [facility] Anion gap in Serum or Plasma Ordered By: GERA Naik on 07-12-2024 Anion gap [Moles/Vol] 9 mmol/L 5-15 [facility] BUN/creatinine ratioOrdered By: GERA Naik on 07-12-2024 Urea nitrogen/Creatinine [Mass ratio] 27.1 mg/mg High 10-20 [facility] Blood manual differential co mment interpretation (narrative result)Ordered By: GERA Naik on 07-12-2024 Manual differential comment Sohan (Bld) [Interp] See comment [facility] Carbon dioxide, total [Moles /volume] in Central venous bloodOrdered By: GERA Naik on 07-12-2024 CO2 [Moles/Vol] 29.3 mmol/L 21.0-32.0 [facility] Chloride assayOrdered By: GERA Naik on 07-12-2024 Chloride [Moles/Vol] 105 mmol/L 98-108 [facility] Erythrocyte distribution wid th ratioOrdered By: GERA Naik on 07-12-2024 Erythrocyte distribution width (RBC) [Ratio] 19.7 % High 11.6-14.6 [facility] Erythrocyte distribution wid th standard deviationOrdered By: GERA Naik on 07-12-2024 Erythrocyte distribution width (RBC) [Ratio] 69.9 fl High 35.1-43.9 [facility] Glomerular filtration rate ( GFR) estimation/1.73 sq m using serum, plasma, or whole bOrdered By: GERA Naik on 07-12-2024 GFR/1.73 sq M.predicted among non-blacks MDRD (S/P/Bld) [Vol rate/Area] 52 mL/min/{1.73_m2} Low >60 [facility] Hematocrit Auto (Bld) [Volum e fraction]Ordered By: GERA Naik on 07-12-2024 Hematocrit (Bld) [Volume fraction] 24.5 % Low 40-54 [facility] Hemoglobin measurementOrdere d By: GERA Naik on 07-12-2024 Hemoglobin (Bld) [Mass/Vol] 7.4 g/dL Low 13.0-16.5 [facility] MCV (mean corpuscular volume ) determinationOrdered By: GERA Naik on 07-12-2024 MCV (RBC) [Entitic vol] 97.6 fL High 80-94 [facility] Mean corpuscular hemoglobin (MCH) determinationOrdered By: GERA Naik on 07-12-2024 MCH (RBC) [Entitic mass] 29.5 pg 27.0-32.0 [facility] Platelet countOrdered By: GERA Naik on 07-12-2024 Platelets (Bld) [#/Vol] 199 10*3/uL 150-450 [facility] Potassium measurement (mass/ volume)Ordered By: GERA Naik on 07-12-2024 Potassium (Unsp spec) [Mass/Vol] 5.3 mmol/L High 3.3-5.1 [facility] RBC Auto (Bld) [#/Vol]Ordere d By: GERA Naik on 07-12-2024 RBC (Bld) [#/Vol] 2.51 10*6/uL Low 4.6-6.2 [facility] Serum creatinine measurement (mass/volume)Ordered By: GERA Naik on 07-12-2024 Creatinine [Mass/Vol] 1.41 mg/dL High 0.70-1.20 [facility] Serum glucose measurement (m ass/volume)Ordered By: GERA Naik on 07-12-2024 Glucose [Mass/Vol] 363 mg/dL High 70-99 [facility] Serum or plasma calcium yocasta urement (mass/volume)Ordered By: GERA Naik on 07-12-2024 Calcium [Mass/Vol] 8.8 mg/dL 7.6-11.0 [facility] Serum or plasma urea nitroge n measurement (mass/volume)Ordered By: GERA Naik on 07-12-2024 Urea nitrogen [Mass/Vol] 38 mg/dL High 4-19 [facility] Sodium levelOrdered By: GERA Naik on 07-12-2024 Sodium [Moles/Vol] 144 mmol/L 133-145 [facility] Trough vancomycin levelOrder ed By: GERA Naik on 07-12-2024 Vancomycin trough [Mass/Vol] 27.7 ug/mL High 5.0-15.0 [facility] White blood cell (WBC) count Ordered By: GERA Naik on 07-12-2024 WBC (Bld) [#/Vol] 7.2 10*3/uL 4.4-11.0 [facility] Absolute lymphocyte countOrd ered By: Marco Hoffman on 07-08-2024 Lymphocytes Auto (Unsp spec) [#/Vol] 1.34 10*3/uL 0.83-4.51 [facility] Activated partial thrombopla stin time (aPTT) in platelet poor plasma by coagulation aOrdered By: Mraco Hoffman on 07-08-2024 aPTT Coag (PPP) [Time] 31.3 s 24.1-36.2 [facility] Anion gap in Serum or Plasma Ordered By: Marco Hoffman on 07-08-2024 Anion gap [Moles/Vol] 11 mmol/L - [facility] Automated lymphocyte count a s percentage of total leukocytesOrdered By: Marco Hoffman on 07-08-2024 Lymphocytes/100 WBC Auto (Unsp spec) 15.2 % Low 19-41 [facility] BUN/creatinine ratioOrdered By: Marco Hoffman on 07-08-2024 Urea nitrogen/Creatinine [Mass ratio] 30.5 mg/mg High 10-20 [facility] Basophil percentageOrdered B y: Marco Hoffman on 07-08-2024 Basophils/100 WBC (Bld) 0.2 % 0-1 [facility] Bilirubin Test strip Ql (U)O rdered By: Marco Hoffman on 07-08-2024 Bilirubin Ql (U) Negative Negative [facility] Bilirubin, totalOrdered By: Marco Hoffman on 07-08-2024 Bilirubin [Mass/Vol] 0.35 mg/dL 0.00-1.30 [facility] Blood cultureOrdered By: Jasmine Hoffman on 07-08-2024 Bacteria identified Cx Nom (Bld) No growth in 5 days. [facility] Bacteria identified Cx Nom (Bld) No growth in 5 days. [facility] Carbon dioxide, total [Moles /volume] in Central venous bloodOrdered By: Marco Hoffman on 07-08-2024 CO2 [Moles/Vol] 27.6 mmol/L 21.0-32.0 [facility] Chloride assayOrdered By: Deangelo Hoffman on 07-08-2024 Chloride [Moles/Vol] 106 mmol/L 98-108 [facility] Eosinophil percentageOrdered By: Marco Hoffman on 07-08-2024 Eosinophils/100 WBC (Bld) 2.0 % 0-5 [facility] Erythrocyte distribution wid th ratioOrdered By: Marco Hoffman on 07-08-2024 Erythrocyte distribution width (RBC) [Ratio] 20.1 % High 11.6-14.6 [facility] Erythrocyte distribution wid th standard deviationOrdered By: Marco Hoffman on 07-08-2024 Erythrocyte distribution width (RBC) [Ratio] 70.7 fl High 35.1-43.9 [facility] Glomerular filtration rate ( GFR) estimation/1.73 sq m using serum, plasma, or whole bOrdered By: Marco Hoffman on 07-08-2024 GFR/1.73 sq M.predicted among non-blacks MDRD (S/P/Bld) [Vol rate/Area] 59 mL/min/{1.73_m2} Low >60 [facility] Hematocrit Auto (Bld) [Volum e fraction]Ordered By: Marco Hoffman on 07-08-2024 Hematocrit (Bld) [Volume fraction] 23.2 % Low 40-54 [facility] Hemoglobin measurementOrdere d By: Marco Hoffman on 07-08-2024 Hemoglobin (Bld) [Mass/Vol] 7.2 g/dL Low 13.0-16.5 [facility] Immature granulocytes/100 WB C Auto (Bld)Ordered By: Marco Hoffman on 07-08-2024 Immature granulocytes/100 WBC (Bld) 1.500 % High 0.0-0.9 [facility] Ketones Test strip Ql (U)Ord ered By: Marco Hoffman on 07-08-2024 Ketones Ql (U) Negative Negative [facility] MCV (mean corpuscular volume ) determinationOrdered By: Marco Hoffman on 07-08-2024 MCV (RBC) [Entitic vol] 95.5 fL High 80-94 [facility] Mean corpuscular hemoglobin (MCH) determinationOrdered By: Marco Hoffman on 07-08-2024 MCH (RBC) [Entitic mass] 29.6 pg 27.0-32.0 [facility] Monocyte percentageOrdered B y: Marco Hoffman on 07-08-2024 Monocytes/100 WBC (Bld) 9.4 % 0-10 [facility] Mucus LM Ql (Urine sed)Order ed By: Marco Hoffman on 07-08-2024 Mucus Ql (Urine sed) 0 SEEN /hpf [facility] Neutrophil percentageOrdered By: Marco Hoffman on 07-08-2024 Neutrophils/100 WBC (Bld) 71.7 % High 47-70 [facility] Nitrite Test strip Ql (U)Ord ered By: Marco Hoffman on 07-08-2024 Nitrite Ql (U) Negative Negative [facility] No Panel InformationOrdered By: Marco Hoffman on 07-08-2024 23 U/L <38 [facility] 2+ [facility] Platelet countOrdered By: Deangelo Hoffman on 07-08-2024 Platelets (Bld) [#/Vol] 162 10*3/uL 150-450 [facility] Potassium measurement (mass/ volume)Ordered By: Marco Hoffman on 07-08-2024 Potassium (Unsp spec) [Mass/Vol] 3.8 mmol/L 3.3-5.1 [facility] Protein Test strip Ql (U)Ord ered By: Marco Hoffman on 07-08-2024 Protein Ql (U) 30 mg/dl High Negative [facility] Prothrombin timeOrdered By: Marco Hoffman on 07-08-2024 PT Coag (PPP) [Time] 14.2 s 11.7-14.9 [facility] RBC Auto (Bld) [#/Vol]Ordere d By: Marco Hoffman on 07-08-2024 RBC (Bld) [#/Vol] 2.43 10*6/uL Low 4.6-6.2 [facility] Serum creatinine measurement (mass/volume)Ordered By: Marco Hoffman on 07-08-2024 Creatinine [Mass/Vol] 1.28 mg/dL High 0.70-1.20 [facility] Serum globulin measurementOr dered By: Marco Hoffman on 07-08-2024 Globulin (S) [Mass/Vol] 2.7 g/dL 2.2-4.2 [facility] Serum glucose measurement (m ass/volume)Ordered By: Marco Hoffman on 07-08-2024 Glucose [Mass/Vol] 164 mg/dL High 70-99 [facility] Serum or plasma alanine barber otransferase (ALT) measurementOrdered By: Marco Hoffman on 07-08-2024 ALT [Catalytic activity/Vol] 38 U/L <47 [facility] Serum or plasma albumin yocasta urement (mass/volume)Ordered By: Marco Hoffman on 07-08-2024 Albumin [Mass/Vol] 3.4 g/dL 3.4-4.8 [facility] Serum or plasma albumin/glob ulin mass ratioOrdered By: Marco Hoffman on 07-08-2024 Albumin/Globulin [Mass ratio] 1.3 {ratio} 0.9-2.4 [facility] Serum or plasma alkaline justin sphatase measurementOrdered By: Marco Hoffman on 07-08-2024 ALP [Catalytic activity/Vol] 122 U/L 40-129 [facility] Serum or plasma calcium yocasta urement (mass/volume)Ordered By: Marco Hoffman on 07-08-2024 Calcium [Mass/Vol] 8.5 mg/dL 7.6-11.0 [facility] Serum or plasma urea nitroge n measurement (mass/volume)Ordered By: Marco Hoffman on 07-08-2024 Urea nitrogen [Mass/Vol] 39 mg/dL High 4-19 [facility] Sodium levelOrdered By: Marco Hoffman on 07-08-2024 Sodium [Moles/Vol] 144 mmol/L 133-145 [facility] Squamous epithelial cells de tection in urine sediment by light microscopyOrdered By: Marco Hoffman on 07-08-2024 Epithelial cells.squamous LM Ql (Urine sed) 0-5 SEEN /hpf 0-5 [facility] Total proteinOrdered By: Jasmine Hoffman on 07-08-2024 Protein [Mass/Vol] 6.1 g/dL 5.9-8.4 [facility] Urine clarityOrdered By: Jasmine Hoffman on 07-08-2024 Clarity (U) Sl. Cloudy Clear [facility] Urine color determinationOrd ered By: Marco Hoffman on 07-08-2024 Color (U) Yellow Yellow [facility] Urine glucose detectionOrder ed By: Marco Hoffman on 07-08-2024 Glucose Ql (U) 1000 mg/dl High Normal [facility] Urine leukocyte esterase det ection by dipstickOrdered By: Marco Hoffman on 07-08-2024 Leukocyte esterase Test strip Ql (U) 500 /ul High Negative [facility] Urine pHOrdered By: Marco campos on 07-08-2024 pH (U) 6.0 [pH] 5.0 - 8.0 [facility] Urine sediment bacteria coun t by microscopy (number/high power field)Ordered By: Marco Hoffman on 07-08-2024 Bacteria LM.HPF (Urine sed) [#/Area] 1 /[HPF] None Seen [facility] Urine sediment yeast count b y microscopy (number/high powered field)Ordered By: Marco Hoffman on 07-08-2024 Yeast LM.HPF (Urine sed) [#/Area] 2 /[HPF] None Seen [facility] Urine specific gravity measu rementOrdered By: Marco Hoffman on 07-08-2024 Specific gravity (U) [Rel density] 1.015 1.002-1.030 [facility] Urine urobilinogen measureme ntOrdered By: Marco Hoffman on 07-08-2024 Urobilinogen Ql (U) Normal mg/dl Normal [facility] White blood cell (WBC) count Ordered By: Marco Hoffman on 07-08-2024 WBC (Bld) [#/Vol] 8.8 10*3/uL 4.4-11.0 [facility] White blood cell countOrdere d By: Marco Hoffman on 07-08-2024 White blood cell count 25-50 SEEN /hpf 0-5 [facility] Anion gap in Serum or Plasma Ordered By: Wilberto Villafuerte on 07-05-2024 Anion gap [Moles/Vol] 10 mmol/L 5-15 [facility] BUN/creatinine ratioOrdered By: Wilberto Villafuerte on 07-05-2024 Urea nitrogen/Creatinine [Mass ratio] 27.0 mg/mg High 10-20 [facility] Blood manual differential co mment interpretation (narrative result)Ordered By: Wilberto Villafuerte on 07-05-2024 Manual differential comment Sohan (Bld) [Interp] See comment [facility] Carbon dioxide, total [Moles /volume] in Central venous bloodOrdered By: Wilberto Villafuerte on 07-05-2024 CO2 [Moles/Vol] 29.6 mmol/L 21.0-32.0 [facility] Chloride assayOrdered By: Anh Villafuerte on 07-05-2024 Chloride [Moles/Vol] 107 mmol/L 98-108 [facility] Erythrocyte distribution wid th ratioOrdered By: Wilberto Villafuerte on 07-05-2024 Erythrocyte distribution width (RBC) [Ratio] 21.1 % High 11.6-14.6 [facility] Erythrocyte distribution wid th standard deviationOrdered By: Wilberto Villafuerte on 07-05-2024 Erythrocyte distribution width (RBC) [Ratio] 75.3 fl High 35.1-43.9 [facility] Glomerular filtration rate ( GFR) estimation/1.73 sq m using serum, plasma, or whole bOrdered By: Wilberto Villafuerte on 07-05-2024 GFR/1.73 sq M.predicted among non-blacks MDRD (S/P/Bld) [Vol rate/Area] 58 mL/min/{1.73_m2} Low >60 [facility] Hematocrit Auto (Bld) [Volum e fraction]Ordered By: Wilberto Villafuerte on 07-05-2024 Hematocrit (Bld) [Volume fraction] 28.2 % Low 40-54 [facility] Hemoglobin measurementOrdere d By: Wilberto Villafuerte on 07-05-2024 Hemoglobin (Bld) [Mass/Vol] 8.4 g/dL Low 13.0-16.5 [facility] MCV (mean corpuscular volume ) determinationOrdered By: Wilberto Villafuerte on 07-05-2024 MCV (RBC) [Entitic vol] 97.6 fL High 80-94 [facility] Mean corpuscular hemoglobin (MCH) determinationOrdered By: Wilberto Villafuerte on 07-05-2024 MCH (RBC) [Entitic mass] 29.1 pg 27.0-32.0 [facility] Platelet countOrdered By: Anh Villafuerte on 07-05-2024 Platelets (Bld) [#/Vol] 263 10*3/uL 150-450 [facility] Potassium measurement (mass/ volume)Ordered By: Wilberto Villafuerte on 07-05-2024 Potassium (Unsp spec) [Mass/Vol] 4.5 mmol/L 3.3-5.1 [facility] RBC Auto (Bld) [#/Vol]Ordere d By: Wilberto Villafuerte on 07-05-2024 RBC (Bld) [#/Vol] 2.89 10*6/uL Low 4.6-6.2 [facility] Serum creatinine measurement (mass/volume)Ordered By: Wilberto Villafuerte on 07-05-2024 Creatinine [Mass/Vol] 1.29 mg/dL High 0.70-1.20 [facility] Serum glucose measurement (m ass/volume)Ordered By: Wilberto Villafuerte on 07-05-2024 Glucose [Mass/Vol] 158 mg/dL High 70-99 [facility] Serum or plasma calcium yocasta urement (mass/volume)Ordered By: Wilberto Villafuerte on 07-05-2024 Calcium [Mass/Vol] 8.8 mg/dL 7.6-11.0 [facility] Serum or plasma urea nitroge n measurement (mass/volume)Ordered By: Wilberto Villafuerte on 07-05-2024 Urea nitrogen [Mass/Vol] 35 mg/dL High 4-19 [facility] Sodium levelOrdered By: Jacob Villafuerte on 07-05-2024 Sodium [Moles/Vol] 146 mmol/L High 133-145 [facility] Trough vancomycin levelOrder ed By: Wilberto Villafuerte on 07-05-2024 Vancomycin trough [Mass/Vol] 20.4 ug/mL High 5.0-15.0 [facility] White blood cell (WBC) count Ordered By: Wilberto Villafuerte on 07-05-2024 WBC (Bld) [#/Vol] 11.6 10*3/uL High 4.4-11.0 [facility] Anion gap [Moles/Vol]Ordered By: Wilberto Villafuerte on 06-28-2024 Anion gap in Serum or Plasma 8 5-15 [facility] Anion gap in Serum or Plasma Ordered By: Wilberto Villafuerte on 06-28-2024 Anion gap [Moles/Vol] 8 mmol/L 5-15 [facility] BUN/creatinine ratioOrdered By: Wilberto Villafuerte on 06-28-2024 Urea nitrogen/Creatinine [Mass ratio] 33.7 mg/mg High 10-20 [facility] BUN/creatinine ratio 33.7 RATIO High 10-20 [facility] Blood manual differential co mment interpretation (narrative result)Ordered By: Wilberto Villafuerte on 06-28-2024 Manual differential comment Sohan (Bld) [Interp] See comment [facility] Calcium [Mass/Vol]Ordered By : Wilberto Villafuerte on 06-28-2024 Serum or plasma calcium measurement (mass/volume) 8.8 mg/dL 7.6-11.0 [facility] Carbon dioxide, total [Moles /volume] in Central venous bloodOrdered By: Wilberto Villafuerte on 06-28-2024 CO2 [Moles/Vol] 30.4 mmol/L 21.0-32.0 [facility] Carbon dioxide, total [Moles/volume] in Central venous blood 30.4 mmol/L 21.0-32.0 [facility] Chloride assayOrdered By: Anh Villafuerte on 06-28-2024 Chloride [Moles/Vol] 108 mmol/L 98-108 [facility] Chloride assay 108 mmol/L 98-108 [facility] Creatinine [Mass/Vol]Ordered By: Wilberto Villafuerte on 06-28-2024 Serum creatinine measurement (mass/volume) 1.14 mg/dL 0.70-1.20 [facility] Erythrocyte distribution wid th (RBC) [Ratio]Ordered By: Wilberto Villafuerte on 06-28-2024 Erythrocyte distribution width ratio 20.7 % High 11.6-14.6 [facility] Erythrocyte distribution width standard deviation 71.3 fl High 35.1-43.9 [facility] Erythrocyte distribution wid th ratioOrdered By: Wilberto Villafuerte on 06-28-2024 Erythrocyte distribution width (RBC) [Ratio] 20.7 % High 11.6-14.6 [facility] Erythrocyte distribution wid th standard deviationOrdered By: Wilberto Villafuerte on 06-28-2024 Erythrocyte distribution width (RBC) [Ratio] 71.3 fl High 35.1-43.9 [facility] GFR/1.73 sq M.predicted idania g non-blacks MDRD (S/P/Bld) [Vol rate/Area]Ordered By: Wilberto Villafuerte on 06-28-2024 Glomerular filtration rate (GFR) estimation/1.73 sq m using serum, plasma, or whole b 67 >60 [facility] Glomerular filtration rate ( GFR) estimation/1.73 sq m using serum, plasma, or whole bOrdered By: Wilberto Villafuerte on 06-28-2024 GFR/1.73 sq M.predicted among non-blacks MDRD (S/P/Bld) [Vol rate/Area] 67 mL/min/{1.73_m2} >60 [facility] Glucose [Mass/Vol]Ordered By : Wilberto Villafuerte on 06-28-2024 Serum glucose measurement (mass/volume) 112 mg/dL High 70-99 [facility] Hematocrit Auto (Bld) [Volum e fraction]Ordered By: Wilberto Villafuerte on 06-28-2024 Hematocrit (Bld) [Volume fraction] 28.7 % Low 40-54 [facility] Automated blood hematocrit (percentage) 28.7 % Low 40-54 [facility] Hemoglobin measurementOrdere d By: Wilberto Villafuerte on 06-28-2024 Hemoglobin (Bld) [Mass/Vol] 8.8 g/dL Low 13.0-16.5 [facility] Hemoglobin measurement 8.8 g/dL Low 13.0-16.5 [facility] MCV (RBC) [Entitic vol]Order ed By: Wilberto Villafuerte on 06-28-2024 MCV (mean corpuscular volume) determination 94.7 fL High 80-94 [facility] MCV (mean corpuscular volume ) determinationOrdered By: Wilberto Villafuerte on 06-28-2024 MCV (RBC) [Entitic vol] 94.7 fL High 80-94 [facility] Manual differential comment Sohan (Bld) [Interp]Ordered By: Wilberto Villafuerte on 06-28-2024 Blood manual differential comment interpretation (narrative result) See comment [facility] Mean corpuscular hemoglobin (MCH) determinationOrdered By: Wilberto Villafuerte on 06-28-2024 MCH (RBC) [Entitic mass] 29.0 pg 27.0-32.0 [facility] Mean corpuscular hemoglobin (MCH) determination 29.0 pg 27.0-32.0 [facility] Mean corpuscular hemoglobin concentration (MCHC) determinationOrdered By: Wilberto Villafuerte on 06-28-2024 Mean corpuscular hemoglobin concentration (MCHC) determination 30.7 g/dL Low 32-36 [facility] Mean platelet volume determi nationOrdered By: Wilberto Villafuerte on 06-28-2024 Mean platelet volume determination 11.6 fl 6.2-12.0 [facility] Platelet countOrdered By: Anh Villafuerte on 06-28-2024 Platelets (Bld) [#/Vol] 309 10*3/uL 150-450 [facility] Platelet count 309 K/mm3 150-450 [facility] Potassium (Unsp spec) [Mass/ Vol]Ordered By: Wilberto Villafuerte on 06-28-2024 Potassium measurement (mass/volume) 4.2 mmol/L 3.3-5.1 [facility] Potassium measurement (mass/ volume)Ordered By: Wilberto Villafuerte on 06-28-2024 Potassium (Unsp spec) [Mass/Vol] 4.2 mmol/L 3.3-5.1 [facility] RBC Auto (Bld) [#/Vol]Ordere d By: Wilberto Villafuerte on 06-28-2024 RBC (Bld) [#/Vol] 3.03 10*6/uL Low 4.6-6.2 [facility] Automated blood erythrocyte count 3.03 M/mm3 Low 4.6-6.2 [facility] Serum creatinine measurement (mass/volume)Ordered By: Wilberto Villafuerte on 06-28-2024 Creatinine [Mass/Vol] 1.14 mg/dL 0.70-1.20 [facility] Serum glucose measurement (m ass/volume)Ordered By: Wilberto Villafuerte on 06-28-2024 Glucose [Mass/Vol] 112 mg/dL High 70-99 [facility] Serum or plasma calcium yocasta urement (mass/volume)Ordered By: Wilberto Villafuerte on 06-28-2024 Calcium [Mass/Vol] 8.8 mg/dL 7.6-11.0 [facility] Serum or plasma urea nitroge n measurement (mass/volume)Ordered By: Wilberto Villafuerte on 06-28-2024 Urea nitrogen [Mass/Vol] 38 mg/dL High 4-19 [facility] Sodium levelOrdered By: Jacob Villafuerte on 06-28-2024 Sodium [Moles/Vol] 146 mmol/L High 133-145 [facility] Sodium level 146 mmol/L High 133-145 [facility] Trough vancomycin levelOrder ed By: Wilberto Villafuerte on 06-28-2024 Vancomycin trough [Mass/Vol] 18.5 ug/mL High 5.0-15.0 [facility] Urea nitrogen [Mass/Vol]Orde red By: Wilberto Villafuerte on 06-28-2024 Serum or plasma urea nitrogen measurement (mass/volume) 38 mg/dL High 4-19 [facility] Vancomycin trough [Mass/Vol] Ordered By: Wilberto Villafuerte on 06-28-2024 Trough vancomycin level 18.5 ug/mL High 5.0-15.0 [facility] White blood cell (WBC) count Ordered By: Wilberto Villafuerte on 06-28-2024 WBC (Bld) [#/Vol] 15.6 10*3/uL High 4.4-11.0 [facility] White blood cell (WBC) count 15.6 K/mm3 High 4.4-11.0 [facility] Absolute lymphocyte countOrd ered By: Jordan Ortiz on 06-25-2024 Lymphocytes Auto (Unsp spec) [#/Vol] 0.88 10*3/uL 0.83-4.51 [facility] Absolute neutrophil countOrd ered By: Jordan Ortiz on 06-25-2024 Absolute neutrophil count 5.5 X10^3/uL 2.0-7.7 [facility] Anion gap [Moles/Vol]Ordered By: Jordan Ortiz on 06-25-2024 Anion gap in Serum or Plasma 8 5-15 [facility] Anion gap in Serum or Plasma Ordered By: Jordan Ortiz on 06-25-2024 Anion gap [Moles/Vol] 8 mmol/L 5-15 [facility] Automated lymphocyte count a s percentage of total leukocytesOrdered By: Jordan Ortiz on 06-25-2024 Lymphocytes/100 WBC Auto (Unsp spec) 12.3 % Low 19-41 [facility] BUN/creatinine ratioOrdered By: Jordan Ortiz on 06-25-2024 Urea nitrogen/Creatinine [Mass ratio] 41.4 mg/mg High 10-20 [facility] BUN/creatinine ratio 41.4 RATIO High 10-20 [facility] Basophil percentageOrdered B y: Jordan Ortiz on 06-25-2024 Basophils/100 WBC (Bld) 0.0 % 0-1 [facility] Basophil percentage 0.0 % 0-1 [facility] Blood manual differential co mment interpretation (narrative result)Ordered By: Jordan Ortiz on 06-25-2024 Manual differential comment Sohan (Bld) [Interp] SCANNED [facility] Calcium [Mass/Vol]Ordered By : Jordan Ortiz on 06-25-2024 Serum or plasma calcium measurement (mass/volume) 8.6 mg/dL 7.6-11.0 [facility] Carbon dioxide, total [Moles /volume] in Central venous bloodOrdered By: Jordan Ortiz on 06-25-2024 CO2 [Moles/Vol] 27.1 mmol/L 21.0-32.0 [facility] Carbon dioxide, total [Moles/volume] in Central venous blood 27.1 mmol/L 21.0-32.0 [facility] Chloride assayOrdered By: Nixon Ortiz on 06-25-2024 Chloride [Moles/Vol] 103 mmol/L 98-108 [facility] Chloride assay 103 mmol/L 98-108 [facility] Creatinine [Mass/Vol]Ordered By: Jordan Ortiz on 06-25-2024 Serum creatinine measurement (mass/volume) 1.12 mg/dL 0.70-1.20 [facility] Eosinophil percentageOrdered By: Jordan Ortiz on 06-25-2024 Eosinophils/100 WBC (Bld) 0.3 % 0-5 [facility] Eosinophil percentage 0.3 % 0-5 [facility] Erythrocyte distribution wid th (RBC) [Ratio]Ordered By: Jordan Ortiz on 06-25-2024 Erythrocyte distribution width ratio 20.3 % High 11.6-14.6 [facility] Erythrocyte distribution width standard deviation 69.2 fl High 35.1-43.9 [facility] Erythrocyte distribution wid th ratioOrdered By: Jordan Ortiz on 06-25-2024 Erythrocyte distribution width (RBC) [Ratio] 20.3 % High 11.6-14.6 [facility] Erythrocyte distribution wid th standard deviationOrdered By: Jordan Ortiz on 06-25-2024 Erythrocyte distribution width (RBC) [Ratio] 69.2 fl High 35.1-43.9 [facility] Estimation of creatinine montez aranceOrdered By: Jordan Ortiz on 06-25-2024 Estimation of creatinine clearance 69.29 ml/min 50-250 [facility] GFR/1.73 sq M.predicted idania g non-blacks MDRD (S/P/Bld) [Vol rate/Area]Ordered By: Jordan Ortiz on 06-25-2024 Glomerular filtration rate (GFR) estimation/1.73 sq m using serum, plasma, or whole b 69 >60 [facility] Glomerular filtration rate ( GFR) estimation/1.73 sq m using serum, plasma, or whole bOrdered By: Jordan Ortiz on 06-25-2024 GFR/1.73 sq M.predicted among non-blacks MDRD (S/P/Bld) [Vol rate/Area] 69 mL/min/{1.73_m2} >60 [facility] Glucose [Mass/Vol]Ordered By : Jordan Ortiz on 06-25-2024 Serum glucose measurement (mass/volume) 241 mg/dL High 70-99 [facility] Glucose measurement at bedsi deOrdered By: Jordan Ortiz on 06-25-2024 Glucose [Mass/Vol] 147 mg/dL High 74-106 [facility] Glucose measurement at bedside 147 mg/dL High 74-106 [facility] Hematocrit Auto (Bld) [Volum e fraction]Ordered By: Jordan Ortiz on 06-25-2024 Hematocrit (Bld) [Volume fraction] 24.7 % Low 40-54 [facility] Automated blood hematocrit (percentage) 24.7 % Low 40-54 [facility] Hemoglobin measurementOrdere d By: Jordan Ortiz on 06-25-2024 Hemoglobin (Bld) [Mass/Vol] 7.7 g/dL Low 13.0-16.5 [facility] Hemoglobin measurement 7.7 g/dL Low 13.0-16.5 [facility] Immature granulocytes/100 WB C Auto (Bld)Ordered By: Jordan Ortiz on 06-25-2024 Immature granulocytes/100 WBC (Bld) 1.500 % High 0.0-0.9 [facility] Automated immature granulocyte percentage 1.500 % High 0.0-0.9 [facility] Lymphocytes Auto (Unsp spec) [#/Vol]Ordered By: Jordan Ortiz on 06-25-2024 Absolute lymphocyte count 0.88 X10^3/uL 0.83-4.51 [facility] Lymphocytes/100 WBC Auto (Un sp spec)Ordered By: Jordan Ortiz on 06-25-2024 Automated lymphocyte count as percentage of total leukocytes 12.3 % Low 19-41 [facility] MCV (RBC) [Entitic vol]Order ed By: Jordan Ortiz on 06-25-2024 MCV (mean corpuscular volume) determination 92.2 fL 80-94 [facility] MCV (mean corpuscular volume ) determinationOrdered By: Jordan Ortiz on 06-25-2024 MCV (RBC) [Entitic vol] 92.2 fL 80-94 [facility] Magnesium (Unsp spec) [Mass/ Vol]Ordered By: Janice Mackey on 06-25-2024 Magnesium measurement (mass/volume) 2.0 mg/dL 1.5-2.2 [facility] Magnesium measurement (mass/ volume)Ordered By: Janice Mackey on 06-25-2024 Magnesium (Unsp spec) [Mass/Vol] 2.0 mg/dL 1.5-2.2 [facility] Manual differential comment Sohan (Bld) [Interp]Ordered By: Jordan Ortiz on 06-25-2024 Blood manual differential comment interpretation (narrative result) SCANNED [facility] Mean corpuscular hemoglobin (MCH) determinationOrdered By: Jordan Ortiz on 06-25-2024 MCH (RBC) [Entitic mass] 28.7 pg 27.0-32.0 [facility] Mean corpuscular hemoglobin (MCH) determination 28.7 pg 27.0-32.0 [facility] Mean corpuscular hemoglobin concentration (MCHC) determinationOrdered By: Jordan Ortiz on 06-25-2024 Mean corpuscular hemoglobin concentration (MCHC) determination 31.2 g/dL Low 32-36 [facility] Mean platelet volume determi nationOrdered By: Jordan Ortiz on 06-25-2024 Mean platelet volume determination 11.0 fl 6.2-12.0 [facility] Monocyte percentageOrdered B y: Jordan Ortiz on 06-25-2024 Monocytes/100 WBC (Bld) 8.5 % 0-10 [facility] Monocyte percentage 8.5 % 0-10 [facility] Neutrophil percentageOrdered By: Jordan Ortiz on 06-25-2024 Neutrophils/100 WBC (Bld) 77.4 % High 47-70 [facility] Neutrophil percentage 77.4 % High 47-70 [facility] No Panel InformationOrdered By: Jordan Ortiz on 06-25-2024 2+ [facility] Nucleated red blood cell per centageOrdered By: Jordan Ortiz on 06-25-2024 Nucleated red blood cell percentage 0 % 0-5 [facility] Platelet countOrdered By: Nixon Ortiz on 06-25-2024 Platelets (Bld) [#/Vol] 186 10*3/uL 150-450 [facility] Platelet count 186 K/mm3 150-450 [facility] Potassium (Unsp spec) [Mass/ Vol]Ordered By: Jordan Ortiz on 06-25-2024 Potassium measurement (mass/volume) 4.3 mmol/L 3.3-5.1 [facility] Potassium measurement (mass/ volume)Ordered By: Jordan Ortiz on 06-25-2024 Potassium (Unsp spec) [Mass/Vol] 4.3 mmol/L 3.3-5.1 [facility] RBC Auto (Bld) [#/Vol]Ordere d By: Jordan Ortiz on 06-25-2024 RBC (Bld) [#/Vol] 2.68 10*6/uL Low 4.6-6.2 [facility] Automated blood erythrocyte count 2.68 M/mm3 Low 4.6-6.2 [facility] Serum creatinine measurement (mass/volume)Ordered By: Jordan Ortiz on 06-25-2024 Creatinine [Mass/Vol] 1.12 mg/dL 0.70-1.20 [facility] Serum glucose measurement (m ass/volume)Ordered By: Jordan Ortiz on 06-25-2024 Glucose [Mass/Vol] 241 mg/dL High 70-99 [facility] Serum or plasma calcium yocasta urement (mass/volume)Ordered By: Jordan Ortiz on 06-25-2024 Calcium [Mass/Vol] 8.6 mg/dL 7.6-11.0 [facility] Serum or plasma urea nitroge n measurement (mass/volume)Ordered By: Jordan Ortiz on 06-25-2024 Urea nitrogen [Mass/Vol] 46 mg/dL High 4-19 [facility] Sodium levelOrdered By: Matthias Ortiz on 06-25-2024 Sodium [Moles/Vol] 138 mmol/L 133-145 [facility] Sodium level 138 mmol/L 133-145 [facility] Urea nitrogen [Mass/Vol]Orde red By: Jordan Ortiz on 06-25-2024 Serum or plasma urea nitrogen measurement (mass/volume) 46 mg/dL High 4-19 [facility] White blood cell (WBC) count Ordered By: Jordan Ortiz on 06-25-2024 WBC (Bld) [#/Vol] 7.2 10*3/uL 4.4-11.0 [facility] White blood cell (WBC) count 7.2 K/mm3 4.4-11.0 [facility] Trough vancomycin levelOrder ed By: Wilberto Villafuerte on 06-24-2024 Vancomycin trough [Mass/Vol] 18.8 ug/mL High 5.0-15.0 [facility] Vancomycin trough [Mass/Vol] Ordered By: Wilberto Villafuerte on 06-24-2024 Trough vancomycin level 18.8 ug/mL High 5.0-15.0 [facility] Blood cultureOrdered By: Brock Villafuerte on 06-23-2024 Bacteria identified Cx Nom (Bld) No growth in 5 days. [facility] Blood culture No growth in 5 days. [facility] Macrocytes detectionOrdered By: Jordan Ortiz on 06-23-2024 Macrocytes Ql (Bld) 1+ [facility] Microcytosis evaluation pane lOrdered By: Jordan Ortiz on 06-23-2024 Microcytosis evaluation panel 1+ [facility] Blood cultureOrdered By: iTno Ortiz on 06-22-2024 Bacteria identified Cx Nom (Bld) No growth in 5 days. [facility] Blood culture No growth in 5 days. [facility] Bacteria identified Cx Nom (Bld) No growth in 5 days. [facility] Blood culture No growth in 5 days. [facility] Serum or plasma vancomycin m easurement (mass/volume)Ordered By: Jordan Ortiz on 06-22-2024 Vancomycin [Mass/Vol] 16.3 ug/mL High 0.0-15.0 [facility] Serum phosphorus measurement Ordered By: Jordan Ortiz on 06-22-2024 Serum phosphorus measurement 5.0 mg/dL High 2.7-4.5 [facility] Vancomycin [Mass/Vol]Ordered By: Jordan Ortiz on 06-22-2024 Serum or plasma vancomycin measurement (mass/volume) 16.3 ug/mL High 0.0-15.0 [facility] ALP [Catalytic activity/Vol] Ordered By: Mable Pritchard on 06-21-2024 Serum or plasma alkaline phosphatase measurement 57 U/L 40-129 [facility] ALT [Catalytic activity/Vol] Ordered By: Mable Pritchard on 06-21-2024 Serum or plasma alanine aminotransferase (ALT) measurement 16 U/L <47 [facility] Albumin [Mass/Vol]Ordered By : Mable Pritchard on 06-21-2024 Serum or plasma albumin measurement (mass/volume) 3.3 g/dL Low 3.4-4.8 [facility] Albumin/Globulin [Mass ratio ]Ordered By: Mable Pritchard on 06-21-2024 Serum or plasma albumin/globulin mass ratio 1.1 RATIO 0.9-2.4 [facility] Bilirubin, totalOrdered By: Mable Pritchard on 06-21-2024 Bilirubin [Mass/Vol] 0.78 mg/dL 0.00-1.30 [facility] Bilirubin, total 0.78 mg/dL 0.00-1.30 [facility] Gram stainOrdered By: Anthony Singleton on 06-21-2024 Microscopic observation Gram stain Nom (Unsp spec) [facility] Microbial respiratory cultur eOrdered By: Anthony Singleton on 06-21-2024 Microorganism identified Cx Nom (Unsp spec) Meth. resistant Staph. aureus Abnormal [facility] Microorganism identified Cx Nom (Unsp spec)Ordered By: Anthony Singleton on 06-21-2024 Microbial respiratory culture Meth. resistant Staph. aureus Abnormal [facility] No Panel InformationOrdered By: Mable Pritchard on 06-21-2024 52 U/L High <38 [facility] Ovalocyte detectionOrdered B y: Mable Pritchard on 06-21-2024 Ovalocytes LM Ql (Bld) RARE [facility] Ovalocytes LM Ql (Bld)Ordere d By: Mable Pritchard on 06-21-2024 Ovalocyte detection RARE [facility] Serum globulin measurementOr dered By: Mable Pritchard on 06-21-2024 Globulin (S) [Mass/Vol] 2.9 g/dL 2.2-4.2 [facility] Serum globulin measurement 2.9 g/dL 2.2-4.2 [facility] Serum or plasma alanine barber otransferase (ALT) measurementOrdered By: Mable Pritchard on 06-21-2024 ALT [Catalytic activity/Vol] 16 U/L <47 [facility] Serum or plasma albumin yocasta urement (mass/volume)Ordered By: Mable Pritchard on 06-21-2024 Albumin [Mass/Vol] 3.3 g/dL Low 3.4-4.8 [facility] Serum or plasma albumin/glob ulin mass ratioOrdered By: Mable Pritchard on 06-21-2024 Albumin/Globulin [Mass ratio] 1.1 {ratio} 0.9-2.4 [facility] Serum or plasma alkaline justin sphatase measurementOrdered By: Mable Pritchard on 06-21-2024 ALP [Catalytic activity/Vol] 57 U/L 40-129 [facility] Total proteinOrdered By: Orly Pritchard on 06-21-2024 Protein [Mass/Vol] 6.2 g/dL 5.9-8.4 [facility] Total protein 6.2 g/dL 5.9-8.4 [facility] Toxic granules LM Ql (Bld)Or dered By: Mable Pritchard on 06-21-2024 Toxic leukocyte granulation detection 2+ [facility] Toxic leukocyte granulation detectionOrdered By: Mable Pritchard on 06-21-2024 Toxic granules LM Ql (Bld) 2+ [facility] Activated partial thrombopla stin time (aPTT) in platelet poor plasma by coagulation aOrdered By: Jaydon Driscoll on 06-20-2024 aPTT Coag (PPP) [Time] 21.3 s Low 24.1-36.2 [facility] Arterial patency Wrist arter y --pre arterial punctureOrdered By: Eva Marie on 06-20-2024 Assessment of wrist artery patency prior to arterial puncture Positive [facility] Assessment of wrist artery p atency prior to arterial punctureOrdered By: Eva Marie on 06-20-2024 Arterial patency Wrist artery --pre arterial puncture Positive [facility] Bacteria LM.HPF (Urine sed) [#/Area]Ordered By: Jaydon Driscoll on 06-20-2024 Urine sediment bacteria count by microscopy (number/high power field) 1+ /hpf None Seen [facility] Base excess Calc (BldV) [Mol es/Vol]Ordered By: Eva Marie on 06-20-2024 Blood base excess determination 10 mmol/L High -2-2 [facility] Basophilic stippling LM Ql ( Bld)Ordered By: Jaydon Driscoll on 06-20-2024 Erythrocyte basophilic stippling detection RARE [facility] Bilirubin Test strip Ql (U)O rdered By: Jaydon Driscoll on 06-20-2024 Bilirubin Ql (U) Negative Negative [facility] Blood base excess determinat ionOrdered By: Eva Marie on 06-20-2024 Base excess Calc (BldV) [Moles/Vol] 10 mmol/L High -2-2 [facility] Blood bicarbonate measuremen tOrdered By: Eva Marie on 06-20-2024 HCO3 (Bld) [Moles/Vol] 33.4 mmol/L High 22-26 [facility] Blood bicarbonate measurement 33.4 mmol/L High 22-26 [facility] Blood cultureOrdered By: Magali Driscoll on 06-20-2024 Bacteria identified Cx Nom (Bld) Meth. resistant Staph. aureus Abnormal [facility] Blood culture Meth. resistant Stap h. aureus Abnormal [facility] Blood polychromasia detectio n by light microscopyOrdered By: Jaydon Driscoll on 06-20-2024 Polychromasia LM Ql (Bld) 1+ [facility] Clarity (U)Ordered By: Jaydon Driscoll on 06-20-2024 Urine clarity Clear Clear [facility] Color (U)Ordered By: Jaydon key on 06-20-2024 Urine color determination Yellow Yellow [facility] Determination of fraction of inspired oxygenOrdered By: Eva Marie on 06-20-2024 Determination of fraction of inspired oxygen 4.0 [facility] Erythrocyte basophilic stipp ling detectionOrdered By: Jaydon Driscoll on 06-20-2024 Basophilic stippling LM Ql (Bld) RARE [facility] Glucose Ql (U)Ordered By: Yanelis Driscoll on 06-20-2024 Urine glucose detection 1000 mg/dl High Normal [facility] Influenza virus A and B and SARS-CoV-2 (COVID-19) and Respiratory syncytial virus RNAOrdered By: Jaydon Driscoll on 06-20-2024 SARS-CoV-2 (COVID-19) RNA JUSTIN+probe Ql (Unsp spec) [facility] International normalized rat io (INR) calculationOrdered By: Jaydon Driscoll on 06-20-2024 International normalized ratio (INR) calculation 1.0 [facility] Ketones Test strip Ql (U)Ord ered By: Jaydon Driscoll on 06-20-2024 Ketones Ql (U) Negative Negative [facility] Lactic acid measurementOrder ed By: Jaydon Driscoll on 06-20-2024 Lactic acid measurement 1.1 mmol/L 0.0-2.0 [facility] Leukocyte esterase Test stri p Ql (U)Ordered By: Jaydon Driscoll on 06-20-2024 Urine leukocyte esterase detection by dipstick 25 /ul High Negative [facility] Measurement, pHOrdered By: Gurwinder Marie on 06-20-2024 pH (Unsp spec) 7.46 [pH] High 7.35-7.45 [facility] Microscopic analysis of urin e for red blood cells (RBC)Ordered By: Jaydon Driscoll on 06-20-2024 Microscopic analysis of urine for red blood cells (RBC) 0-5 SEEN /hpf 0-5 [facility] Mucus LM Ql (Urine sed)Order ed By: Jaydon Driscoll on 06-20-2024 Mucus Ql (Urine sed) 0 SEEN /hpf [facility] Mucus detection in urine sediment by light microscopy 0 SEEN /hpf [facility] Natriuretic peptide.B prohor sena N-Terminal [Mass/Vol]Ordered By: Jaydon Driscoll on 06-20-2024 Natriuretic peptide.B prohormone N-Terminal [Mass/volume] in Serum or Plasma 4069 pg/mL High <900 [facility] Natriuretic peptide.B prohor sena N-Terminal [Mass/volume] in Serum or PlasmaOrdered By: Jaydon Driscoll on 06-20-2024 Natriuretic peptide.B prohormone N-Terminal [Mass/Vol] 4069 pg/mL High <900 [facility] Nitrite Test strip Ql (U)Ord ered By: Jaydon Driscoll on 06-20-2024 Nitrite Ql (U) Negative Negative [facility] No Panel InformationOrdered By: Eva Marie on 06-20-2024 ART [facility] L Radial [facility] Not entered [facility] Cannula [facility] Organism identificationOrder ed By: Jaydon Driscoll on 06-20-2024 Microorganism identified Cx Nom (Unsp spec) Meth. resistant Staph. aureus Abnormal [facility] Oxygen saturation measuremen tOrdered By: Eva Marie on 06-20-2024 Oxygen saturation measurement 87 % Low 95-99 [facility] Partial pressure of carbon d ioxide measurementOrdered By: Eva Marie on 06-20-2024 Partial pressure of carbon dioxide measurement 47.0 mmHg High 35-45 [facility] Partial pressure of oxygen m easurementOrdered By: Eva Marie on 06-20-2024 Partial pressure of oxygen measurement 51 mmHG Low 75-100 [facility] Platelet estimateOrdered By: Jaydon Driscoll on 06-20-2024 Platelets LM Ql (Bld) A [facility] Platelets LM Ql (Bld)Ordered By: Jaydon Driscoll on 06-20-2024 Platelet estimate A [facility] Polychromasia LM Ql (Bld)Ord ered By: Jaydon Driscoll on 06-20-2024 Blood polychromasia detection by light microscopy 1+ [facility] Procalcitonin IA [Mass/Vol]O rdered By: Jaydon Driscoll on 06-20-2024 Procalcitonin [Mass/volume] in Serum or Plasma by Immunoassay 0.10 ng/mL <0.11 [facility] Procalcitonin [Mass/volume] in Serum or Plasma by ImmunoassayOrdered By: Jaydon Driscoll on 06-20-2024 Procalcitonin IA [Mass/Vol] 0.10 ng/mL <0.11 [facility] Protein Test strip Ql (U)Ord ered By: Jaydon Driscoll on 06-20-2024 Protein Ql (U) 30 mg/dl High Negative [facility] Urine protein assay by test strip, semi-quantitative 30 mg/dl High Negative [facility] Prothrombin timeOrdered By: Jaydon Driscoll on 06-20-2024 PT Coag (PPP) [Time] 13.4 s 11.7-14.9 [facility] Prothrombin time 13.4 SECONDS 11.7-14.9 [facility] Respiratory pathogens detect ion panel by molecular detection methodOrdered By: Mable Pritchard on 06-20-2024 Respiratory pathogens DNA and RNA panel JUSTIN+probe (Resp) [facility] Specific gravity (U) [Rel de nsity]Ordered By: Jaydon Driscoll on 06-20-2024 Urine specific gravity measurement 1.010 1.002-1.030 [facility] Squamous epithelial cells de tection in urine sediment by light microscopyOrdered By: Jaydon Driscoll on 06-20-2024 Epithelial cells.squamous LM Ql (Urine sed) 0-5 SEEN /hpf 0-5 [facility] Total carbon dioxide measure mentOrdered By: Eva Marie on 06-20-2024 CO2 [Moles/Vol] 35 mmol/L [facility] Total carbon dioxide measurement 35 mmol/L [facility] Transitional cells detection in urine sediment by light microscopyOrdered By: Jaydon Driscoll on 06-20-2024 Transitional cells LM Ql (Urine sed) 0-5 SEEN /hpf 0-5 [facility] Urine Legionella pneumophila antigen detectionOrdered By: Mable Pritchard on 06-20-2024 L. pneumophila Ag Ql (U) [facility] Urine blood detectionOrdered By: Jaydon Driscoll on 06-20-2024 Urine blood detection 10 /ul High Negative [facility] Urine clarityOrdered By: Magali Driscoll on 06-20-2024 Clarity (U) Clear Clear [facility] Urine color determinationOrd ered By: Jaydon Driscoll on 06-20-2024 Color (U) Yellow Yellow [facility] Urine cultureOrdered By: Magali Driscoll on 06-20-2024 Bacteria identified Cx Nom (U) Yeast, not Elisha albicans Abnormal [facility] Urine culture Yeast, not Elisha albicans Abnormal [facility] Urine glucose detectionOrder ed By: Jaydon Driscoll on 06-20-2024 Glucose Ql (U) 1000 mg/dl High Normal [facility] Urine leukocyte esterase det ection by dipstickOrdered By: Jaydon Driscoll on 06-20-2024 Leukocyte esterase Test strip Ql (U) 25 /ul High Negative [facility] Urine pHOrdered By: Jaydon hinson on 06-20-2024 pH (U) 6.5 [pH] 5.0 - 8.0 [facility] Urine sediment bacteria coun t by microscopy (number/high power field)Ordered By: Jaydon Driscoll on 06-20-2024 Bacteria LM.HPF (Urine sed) [#/Area] 1 /[HPF] None Seen [facility] Urine specific gravity measu rementOrdered By: Jaydon Driscoll on 06-20-2024 Specific gravity (U) [Rel density] 1.010 1.002-1.030 [facility] Urine total bilirubin detect ion by test stripOrdered By: Jaydon Driscoll on 06-20-2024 Urine total bilirubin detection by test strip Negative Negative [facility] Urine urobilinogen measureme ntOrdered By: Jaydon Driscoll on 06-20-2024 Urobilinogen Ql (U) Normal mg/dl Normal [facility] Urobilinogen Ql (U)Ordered B y: Jaydon Driscoll on 06-20-2024 Urine urobilinogen measurement Normal mg/dl Normal [facility] [facility] White blood cell countOrdere d By: Jaydon Driscoll on 06-20-2024 White blood cell count 10-25 SEEN /hpf 0-5 [facility] White blood cell count 10-25 SEEN /hpf 0-5 [facility] aPTT Coag (PPP) [Time]Ordere d By: Jaydon Driscoll on 06-20-2024 Activated partial thromboplastin time (aPTT) in platelet poor plasma by coagulation a 21.3 Seconds Low 24.1-36.2 [facility] pH (U)Ordered By: Jaydon pollock on 06-20-2024 Urine pH 6.5 5.0 - 8.0 [facility] pH (Unsp spec)Ordered By: Henrique Marie on 06-20-2024 Measurement, pH 7.46 High 7.35-7.45 [facility] ALP [Catalytic activity/Vol] Ordered By: Tobi Zapata on 04-27-2024 Serum or plasma alkaline phosphatase measurement 73 U/L 40-129 [facility] ALT [Catalytic activity/Vol] Ordered By: Tobi Zapata on 04-27-2024 Serum or plasma alanine aminotransferase (ALT) measurement 13 U/L <47 [facility] Absolute lymphocyte countOrd ered By: Tobi Zapata on 04-27-2024 Lymphocytes Auto (Unsp spec) [#/Vol] 1.47 10*3/uL 0.83-4.51 [facility] Absolute neutrophil countOrd ered By: Tobi Zapata on 04-27-2024 Absolute neutrophil count 5.8 X10^3/uL 2.0-7.7 [facility] Albumin [Mass/Vol]Ordered By : Tobi Zapata on 04-27-2024 Serum or plasma albumin measurement (mass/volume) 3.9 g/dL 3.4-4.8 [facility] Albumin/Globulin [Mass ratio ]Ordered By: Tobi Zapata on 04-27-2024 Serum or plasma albumin/globulin mass ratio 1.5 RATIO 0.9-2.4 [facility] Anion gap [Moles/Vol]Ordered By: Tobi Zapata on 04-27-2024 Anion gap in Serum or Plasma 10 5-15 [facility] Anion gap in Serum or Plasma Ordered By: Tobi Zapata on 04-27-2024 Anion gap [Moles/Vol] 10 mmol/L 5-15 [facility] Automated lymphocyte count a s percentage of total leukocytesOrdered By: Tobi Zapata on 04-27-2024 Lymphocytes/100 WBC Auto (Unsp spec) 17.7 % Low 19-41 [facility] BUN/creatinine ratioOrdered By: Tobi Zapata on 04-27-2024 Urea nitrogen/Creatinine [Mass ratio] 17.8 mg/mg 10-20 [facility] BUN/creatinine ratio 17.8 RATIO 10-20 [facility] Basophil percentageOrdered B y: Tobi Zapata on 04-27-2024 Basophils/100 WBC (Bld) 0.4 % 0-1 [facility] Basophil percentage 0.4 % 0-1 [facility] Bilirubin, totalOrdered By: Tobi Zapata on 04-27-2024 Bilirubin [Mass/Vol] 0.42 mg/dL 0.00-1.30 [facility] Bilirubin, total 0.42 mg/dL 0.00-1.30 [facility] Blood polychromasia detectio n by light microscopyOrdered By: Tobi Zapata on 04-27-2024 Polychromasia LM Ql (Bld) 1+ [facility] CRP [Mass/Vol]Ordered By: Fabiana Zapata on 04-27-2024 Serum or plasma C reactive protein measurement (mass/volume) 11.90 mg/L High 0.0-3.0 [facility] Calcium [Mass/Vol]Ordered By : Tobi Zaapta on 04-27-2024 Serum or plasma calcium measurement (mass/volume) 8.8 mg/dL 7.6-11.0 [facility] Calculated total iron bindin g capacityOrdered By: Tobi Zapata on 04-27-2024 Calculated total iron binding capacity 252 ug/dL 250-450 [facility] Carbon dioxide, total [Moles /volume] in Central venous bloodOrdered By: Tobi Zapata on 04-27-2024 CO2 [Moles/Vol] 32.7 mmol/L High 21.0-32.0 [facility] Carbon dioxide, total [Moles/volume] in Central venous blood 32.7 mmol/L High 21.0-32.0 [facility] Chloride assayOrdered By: Fabiana Zapata on 04-27-2024 Chloride [Moles/Vol] 102 mmol/L 98-108 [facility] Chloride assay 102 mmol/L 98-108 [facility] Cobalamin (Vitamin B12) [Mas s/Vol]Ordered By: Tobi Zapata on 04-27-2024 Vitamin B12 ser/plas 767 pg/mL 180-914 [facility] Creatinine [Mass/Vol]Ordered By: Tobi Zapata on 04-27-2024 Serum creatinine measurement (mass/volume) 1.38 mg/dL High 0.70-1.20 [facility] ESR (Bld) [Velocity]Ordered By: Tobi Zapata on 04-27-2024 Erythrocyte sedimentation rate 25 mm/hr High 0-20 [facility] Eosinophil percentageOrdered By: Tobi Zapata on 04-27-2024 Eosinophils/100 WBC (Bld) 3.3 % 0-5 [facility] Eosinophil percentage 3.3 % 0-5 [facility] Erythrocyte distribution wid th (RBC) [Ratio]Ordered By: Tobi Zapata on 04-27-2024 Erythrocyte distribution width ratio 18.6 % High 11.6-14.6 [facility] Erythrocyte distribution width standard deviation 60.6 fl High 35.1-43.9 [facility] Erythrocyte distribution wid th ratioOrdered By: Tobi Zapata on 04-27-2024 Erythrocyte distribution width (RBC) [Ratio] 18.6 % High 11.6-14.6 [facility] Erythrocyte distribution wid th standard deviationOrdered By: Tobi Zapata on 04-27-2024 Erythrocyte distribution width (RBC) [Ratio] 60.6 fl High 35.1-43.9 [facility] Erythrocyte sedimentation ra teOrdered By: Tobi Zapata on 04-27-2024 ESR (Bld) [Velocity] 25 mm/h High 0-20 [facility] Erythropoietin (EPO) QnOrder ed By: Tobi Zapata on 04-27-2024 Serum or plasma erythropoietin (EPO) measurement (units/volume) 23.0 mIU/mL High 2.6-18.5 [facility] Estimation of creatinine montez aranceOrdered By: Tobi Zapata on 04-27-2024 Estimation of creatinine clearance 56.53 ml/min 50-250 [facility] Ferritin [Mass/Vol]Ordered B y: Tobi Zapata on 04-27-2024 Serum or plasma ferritin measurement (mass/volume) 80 ng/mL 37-417 [facility] Folate [Mass/Vol]Ordered By: Tobi Zapata on 04-27-2024 Folate [Mass/volume] in Serum or Plasma 7.25 ng/mL 4.60-34.80 [facility] Folate [Mass/volume] in Seru m or PlasmaOrdered By: Tobi Zapata on 04-27-2024 Folate [Mass/Vol] 7.25 ng/mL 4.60-34.80 [facility] GFR/1.73 sq M.predicted idania g non-blacks MDRD (S/P/Bld) [Vol rate/Area]Ordered By: Tobi Zapata on 04-27-2024 Glomerular filtration rate (GFR) estimation/1.73 sq m using serum, plasma, or whole b 54 Low >60 [facility] Glomerular filtration rate ( GFR) estimation/1.73 sq m using serum, plasma, or whole bOrdered By: Tobi Zapata on 04-27-2024 GFR/1.73 sq M.predicted among non-blacks MDRD (S/P/Bld) [Vol rate/Area] 54 mL/min/{1.73_m2} Low >60 [facility] Glucose [Mass/Vol]Ordered By : Tobi Zapata on 04-27-2024 Serum glucose measurement (mass/volume) 144 mg/dL High 70-99 [facility] Hematocrit Auto (Bld) [Volum e fraction]Ordered By: Tobi Zapata on 04-27-2024 Hematocrit (Bld) [Volume fraction] 29.2 % Low 40-54 [facility] Automated blood hematocrit (percentage) 29.2 % Low 40-54 [facility] Hemoglobin (Reticulocytes) [ Entitic mass]Ordered By: Tobi Zapata on 04-27-2024 Reticulocyte hemoglobin equivalent (RET-He) measurement 26.6 pg Low 30-35 [facility] Hemoglobin measurementOrdere d By: Tobi Zapata on 04-27-2024 Hemoglobin (Bld) [Mass/Vol] 8.7 g/dL Low 13.0-16.5 [facility] Hemoglobin measurement 8.7 g/dL Low 13.0-16.5 [facility] Immature granulocytes/100 WB C Auto (Bld)Ordered By: Tobi Zapata on 04-27-2024 Immature granulocytes/100 WBC (Bld) 0.700 % 0.0-0.9 [facility] Automated immature granulocyte percentage 0.700 % 0.0-0.9 [facility] Immature platelet percentage Ordered By: Tobi Zapata on 04-27-2024 Platelets reticulated/100 platelets Auto (Bld) 3.7 % 1.0-7.9 [facility] Immature reticulocyte fracti onOrdered By: Tobi Zapata on 04-27-2024 Immature reticulocyte fraction 29.90 % High 3.00-15.90 [facility] Iron (Unsp spec) [Mass/Mass] Ordered By: Tobi Zapata on 04-27-2024 Iron measurement (mass/mass) 40 ug/dL Low 65-175 [facility] Iron measurement (mass/mass) Ordered By: Tobi Zapata on 04-27-2024 Iron (Unsp spec) [Mass/Mass] 40 ug/dL Low 65-175 [facility] Iron saturation [Mass fracti on]Ordered By: Tobi Zapata on 04-27-2024 Serum or plasma iron saturation measurement (mass fraction) 15.9 % 15.0-55.0 [facility] Lactate dehydrogenase (LDH) measurementOrdered By: Tobi Zapata on 04-27-2024 Lactate dehydrogenase (LDH) measurement 207 U/L 87-241 [facility] Lymphocytes Auto (Unsp spec) [#/Vol]Ordered By: Tobi Zapata on 04-27-2024 Absolute lymphocyte count 1.47 X10^3/uL 0.83-4.51 [facility] Lymphocytes/100 WBC Auto (Un sp spec)Ordered By: Tobi Zapata on 04-27-2024 Automated lymphocyte count as percentage of total leukocytes 17.7 % Low 19-41 [facility] MCV (RBC) [Entitic vol]Order ed By: Tobi Zapata on 04-27-2024 MCV (mean corpuscular volume) determination 89.0 fL 80-94 [facility] MCV (mean corpuscular volume ) determinationOrdered By: Tobi Zapata on 04-27-2024 MCV (RBC) [Entitic vol] 89.0 fL 80-94 [facility] Magnesium (Unsp spec) [Mass/ Vol]Ordered By: Tobi Zapata on 04-27-2024 Magnesium measurement (mass/volume) 1.9 mg/dL 1.5-2.2 [facility] Magnesium measurement (mass/ volume)Ordered By: Tobi Zapata on 04-27-2024 Magnesium (Unsp spec) [Mass/Vol] 1.9 mg/dL 1.5-2.2 [facility] Mean corpuscular hemoglobin (MCH) determinationOrdered By: Tobi Zapata on 04-27-2024 MCH (RBC) [Entitic mass] 26.5 pg Low 27.0-32.0 [facility] Mean corpuscular hemoglobin (MCH) determination 26.5 pg Low 27.0-32.0 [facility] Mean corpuscular hemoglobin concentration (MCHC) determinationOrdered By: Tobi Zapata on 04-27-2024 Mean corpuscular hemoglobin concentration (MCHC) determination 29.8 g/dL Low 32-36 [facility] Mean platelet volume determi nationOrdered By: Tobi Zapata on 04-27-2024 Mean platelet volume determination 10.3 fl 6.2-12.0 [facility] Monocyte percentageOrdered B y: Tobi Zapata on 04-27-2024 Monocytes/100 WBC (Bld) 7.6 % 0-10 [facility] Monocyte percentage 7.6 % 0-10 [facility] Neutrophil percentageOrdered By: Tobi Zapata on 04-27-2024 Neutrophils/100 WBC (Bld) 70.3 % High 47-70 [facility] Neutrophil percentage 70.3 % High 47-70 [facility] No Panel InformationOrdered By: Tobi Zapata on 04-27-2024 12 U/L <38 [facility] 212 ug/dL Low 228-428 [facility] Nucleated red blood cell per centageOrdered By: Tobi Zapata on 04-27-2024 Nucleated red blood cell percentage 0.5 % 0-5 [facility] Ovalocyte detectionOrdered B y: Tobi Zapata on 04-27-2024 Ovalocytes LM Ql (Bld) 2+ [facility] Ovalocytes LM Ql (Bld)Ordere d By: Tobi Zapata on 04-27-2024 Ovalocyte detection 2+ [facility] Platelet countOrdered By: Fabiana Zapata on 04-27-2024 Platelets (Bld) [#/Vol] 228 10*3/uL 150-450 [facility] Platelet count 228 K/mm3 150-450 [facility] Platelet estimateOrdered By: Tobi Zapata on 04-27-2024 Platelets LM Ql (Bld) a ADEQ [facility] Platelets LM Ql (Bld)Ordered By: Tobi Zapata on 04-27-2024 Platelet estimate a [facility] Platelets reticulated/100 pl atelets Auto (Bld)Ordered By: Tobi Zapata on 04-27-2024 Immature platelet percentage 3.7 % 1.0-7.9 [facility] Polychromasia LM Ql (Bld)Ord ered By: Tobi Zapata on 04-27-2024 Blood polychromasia detection by light microscopy 1+ [facility] Potassium (Unsp spec) [Mass/ Vol]Ordered By: Tobi Zapata on 04-27-2024 Potassium measurement (mass/volume) 4.2 mmol/L 3.3-5.1 [facility] Potassium measurement (mass/ volume)Ordered By: Tobi Zapata on 04-27-2024 Potassium (Unsp spec) [Mass/Vol] 4.2 mmol/L 3.3-5.1 [facility] RBC Auto (Bld) [#/Vol]Ordere d By: Tobi Zapata on 04-27-2024 RBC (Bld) [#/Vol] 3.28 10*6/uL Low 4.6-6.2 [facility] Automated blood erythrocyte count 3.28 M/mm3 Low 4.6-6.2 [facility] Reticulocyte hemoglobin equi valent (RET-He) measurementOrdered By: Tobi Zapata on 04-27-2024 Hemoglobin (Reticulocytes) [Entitic mass] 26.6 pg Low 30-35 [facility] Reticulocytes Auto (Bld) [#/ Vol]Ordered By: Tobi Zapata on 04-27-2024 Reticulocytes/100 RBC (Bld) 1.82 % High 0.5-1.5 [facility] Automated blood reticulocytes count (number/volume) 1.82 % High 0.5-1.5 [facility] Serum creatinine measurement (mass/volume)Ordered By: Tobi Zapata on 04-27-2024 Creatinine [Mass/Vol] 1.38 mg/dL High 0.70-1.20 [facility] Serum globulin measurementOr dered By: Tobi Zapata on 04-27-2024 Globulin (S) [Mass/Vol] 2.5 g/dL 2.2-4.2 [facility] Serum globulin measurement 2.5 g/dL 2.2-4.2 [facility] Serum glucose measurement (m ass/volume)Ordered By: Tobi Zapata on 04-27-2024 Glucose [Mass/Vol] 144 mg/dL High 70-99 [facility] Serum or plasma C reactive p rotein measurement (mass/volume)Ordered By: Tobi Zapata on 04-27-2024 CRP [Mass/Vol] 11.90 mg/L High 0.0-3.0 [facility] Serum or plasma alanine barber otransferase (ALT) measurementOrdered By: Tobi Zapata on 04-27-2024 ALT [Catalytic activity/Vol] 13 U/L <47 [facility] Serum or plasma albumin yocasta urement (mass/volume)Ordered By: Tobi Zapata on 04-27-2024 Albumin [Mass/Vol] 3.9 g/dL 3.4-4.8 [facility] Serum or plasma albumin/glob ulin mass ratioOrdered By: Tobi Zapata on 04-27-2024 Albumin/Globulin [Mass ratio] 1.5 {ratio} 0.9-2.4 [facility] Serum or plasma alkaline justin sphatase measurementOrdered By: Tobi Zapata on 04-27-2024 ALP [Catalytic activity/Vol] 73 U/L 40-129 [facility] Serum or plasma calcium yocasta urement (mass/volume)Ordered By: Tobi Zapata on 04-27-2024 Calcium [Mass/Vol] 8.8 mg/dL 7.6-11.0 [facility] Serum or plasma erythropoiet in (EPO) measurement (units/volume)Ordered By: Tobi Zapata on 04-27-2024 Erythropoietin (EPO) Qn 23.0 mIU/mL High 2.6-18.5 [facility] Serum or plasma ferritin vasquez surement (mass/volume)Ordered By: Tobi Zapata on 04-27-2024 Ferritin [Mass/Vol] 80 ng/mL 37-417 [facility] Serum or plasma iron saturat ion measurement (mass fraction)Ordered By: Tobi Zapata on 04-27-2024 Iron saturation [Mass fraction] 15.9 % 15.0-55.0 [facility] Serum or plasma urea nitroge n measurement (mass/volume)Ordered By: Tobi Zapata on 04-27-2024 Urea nitrogen [Mass/Vol] 25 mg/dL High 4-19 [facility] Serum phosphorus measurement Ordered By: Tobi Zapata on 04-27-2024 Serum phosphorus measurement 4.2 mg/dL 2.7-4.5 [facility] Sodium levelOrdered By: Dimas Zapata on 04-27-2024 Sodium [Moles/Vol] 145 mmol/L 133-145 [facility] Sodium level 145 mmol/L 133-145 [facility] Total proteinOrdered By: Mikael Zapata on 04-27-2024 Protein [Mass/Vol] 6.4 g/dL 5.9-8.4 [facility] Total protein 6.4 g/dL 5.9-8.4 [facility] Urea nitrogen [Mass/Vol]Orde red By: Tobi Zapata on 04-27-2024 Serum or plasma urea nitrogen measurement (mass/volume) 25 mg/dL High 4-19 [facility] Vitamin B12 ser/plasOrdered By: Tobi Zapata on 04-27-2024 Cobalamin (Vitamin B12) [Mass/Vol] 767 pg/mL 180-914 [facility] White blood cell (WBC) count Ordered By: Tobi Zapata on 04-27-2024 WBC (Bld) [#/Vol] 8.3 10*3/uL 4.4-11.0 [facility] White blood cell (WBC) count 8.3 K/mm3 4.4-11.0 [facility] Absolute lymphocyte countOrd ered By: Huang Lazcano on 04-08-2024 Lymphocytes Auto (Unsp spec) [#/Vol] 0.44 10*3/uL Low 0.83-4.51 [facility] Absolute neutrophil countOrd ered By: Huang Lazcano on 04-08-2024 Absolute neutrophil count 8.3 X10^3/uL High 2.0-7.7 [facility] Automated lymphocyte count a s percentage of total leukocytesOrdered By: Huang Lazcano on 04-08-2024 Lymphocytes/100 WBC Auto (Unsp spec) 4.7 % Low 19-41 [facility] Basophil percentageOrdered B y: Huang Lazcano on 04-08-2024 Basophils/100 WBC (Bld) 0.1 % 0-1 [facility] Basophil percentage 0.1 % 0-1 [facility] Blood urea nitrogen (BUN)/cr eatinine ratioOrdered By: Huang Lazcano on 04-08-2024 Blood urea nitrogen (BUN)/creatinine ratio 30.6 RATIO High 10-20 [facility] Calcium [Mass/Vol]Ordered By : Huang Lazcano on 04-08-2024 Serum or plasma calcium measurement (mass/volume) 8.5 mg/dL 8.5-10.1 [facility] Carbon dioxide measurementOr dered By: Huang Lazcano on 04-08-2024 CO2 [Moles/Vol] 29.0 mmol/L 21.0-32.0 [facility] Carbon dioxide measurement 29.0 mmol/L 21.0-32.0 [facility] Chloride measurementOrdered By: Huang Lazcano on 04-08-2024 Chloride [Moles/Vol] 110 mmol/L High 98-107 [facility] Chloride measurement 110 mmol/L High 98-107 [facility] Creatinine [Mass/Vol]Ordered By: Huang Lazcano on 04-08-2024 Serum or plasma creatinine measurement (mass/volume) 1.47 mg/dL High 0.70-1.30 [facility] Eosinophil percentageOrdered By: Huang Lazcano on 04-08-2024 Eosinophils/100 WBC (Bld) 0.0 % 0-5 [facility] Eosinophil percentage 0.0 % 0-5 [facility] Erythrocyte distribution wid th (RBC) [Ratio]Ordered By: Huang Lazcano on 04-08-2024 Erythrocyte distribution width ratio 17.1 % High 11.6-14.6 [facility] Erythrocyte distribution width standard deviation 54.2 fl High 35.1-43.9 [facility] Erythrocyte distribution wid th ratioOrdered By: Huang Lazcano on 04-08-2024 Erythrocyte distribution width (RBC) [Ratio] 17.1 % High 11.6-14.6 [facility] Erythrocyte distribution wid th standard deviationOrdered By: Huang Lazcano on 04-08-2024 Erythrocyte distribution width (RBC) [Ratio] 54.2 fl High 35.1-43.9 [facility] Estimated glomerular filtrat ion rate (GFR) AmericanOrdered By: Huang Lazcano on 04-08-2024 Estimated glomerular filtration rate (GFR) 60 mL/min >60 [facility] Estimation of creatinine montez aranceOrdered By: Huang Lazcano on 04-08-2024 Estimation of creatinine clearance 52.92 ml/min [facility] Glomerular filtration rate ( GFR) estimationOrdered By: Huang Lazcano on 04-08-2024 GFR/1.73 sq M.predicted among non-blacks MDRD (S/P/Bld) [Vol rate/Area] 50 mL/min/{1.73_m2} Low >60 [facility] Glomerular filtration rate (GFR) estimation 50 mL/min Low >60 [facility] Glucose measurementOrdered B y: Huang Lazcano on 04-08-2024 Glucose [Mass/Vol] 340 mg/dL High 74-106 [facility] Glucose measurement 340 mg/dL High 74-106 [facility] Glucose measurement at bedsi deOrdered By: Huang Lazcano on 04-08-2024 Glucose [Mass/Vol] 314 mg/dL High 74-106 [facility] Glucose measurement at bedside 314 mg/dL High 74-106 [facility] Hematocrit Auto (Bld) [Volum e fraction]Ordered By: Huang Lazcano on 04-08-2024 Hematocrit (Bld) [Volume fraction] 28.2 % Low 40-54 [facility] Automated blood hematocrit (percentage) 28.2 % Low 40-54 [facility] Hemoglobin measurementOrdere d By: Huang Lazcano on 04-08-2024 Hemoglobin (Bld) [Mass/Vol] 8.6 g/dL Low 13.0-16.5 [facility] Hemoglobin measurement 8.6 g/dL Low 13.0-16.5 [facility] Immature granulocytes/100 WB C Auto (Bld)Ordered By: Huang Lazcano on 04-08-2024 Immature granulocytes/100 WBC (Bld) 1.200 % High 0.0-0.9 [facility] Automated immature granulocyte percentage 1.200 % High 0.0-0.9 [facility] Lymphocytes Auto (Unsp spec) [#/Vol]Ordered By: Huang Lazcano on 04-08-2024 Absolute lymphocyte count 0.44 X10^3/uL Low 0.83-4.51 [facility] Lymphocytes/100 WBC Auto (Un sp spec)Ordered By: Huang Lazcano on 04-08-2024 Automated lymphocyte count as percentage of total leukocytes 4.7 % Low 19-41 [facility] MCV (RBC) [Entitic vol]Order ed By: Huang Lazcano on 04-08-2024 MCV (mean corpuscular volume) determination 87.6 fL 80-94 [facility] MCV (mean corpuscular volume ) determinationOrdered By: Huang Lazcano on 04-08-2024 MCV (RBC) [Entitic vol] 87.6 fL 80-94 [facility] Mean corpuscular hemoglobin (MCH) determinationOrdered By: Huang Lazcano on 04-08-2024 MCH (RBC) [Entitic mass] 26.7 pg Low 27.0-32.0 [facility] Mean corpuscular hemoglobin (MCH) determination 26.7 pg Low 27.0-32.0 [facility] Mean corpuscular hemoglobin concentration (MCHC) determinationOrdered By: Huang Lazcano on 04-08-2024 Mean corpuscular hemoglobin concentration (MCHC) determination 30.5 g/dL Low 32-36 [facility] Mean platelet volume determi nationOrdered By: Huang Lazcano on 04-08-2024 Mean platelet volume determination 11.3 fl 6.2-12.0 [facility] Monocyte percentageOrdered B y: Huang Lazcano on 04-08-2024 Monocytes/100 WBC (Bld) 5.8 % 0-10 [facility] Monocyte percentage 5.8 % 0-10 [facility] Neutrophil percentageOrdered By: Huang Lazcano on 04-08-2024 Neutrophils/100 WBC (Bld) 88.2 % High 47-70 [facility] Neutrophil percentage 88.2 % High 47-70 [facility] Nucleated red blood cell per centageOrdered By: Huang Lazcano on 04-08-2024 Nucleated red blood cell percentage 0.5 % 0-5 [facility] Platelet countOrdered By: Bessie Lazcano on 04-08-2024 Platelets (Bld) [#/Vol] 308 10*3/uL 150-450 [facility] Platelet count 308 K/mm3 150-450 [facility] Potassium measurementOrdered By: Huang Lazcano on 04-08-2024 Potassium [Moles/Vol] 4.6 mmol/L 3.5-5.1 [facility] Potassium measurement 4.6 mmol/L 3.5-5.1 [facility] RBC Auto (Bld) [#/Vol]Ordere d By: Huang Lazcano on 04-08-2024 RBC (Bld) [#/Vol] 3.22 10*6/uL Low 4.6-6.2 [facility] Automated blood erythrocyte count 3.22 M/mm3 Low 4.6-6.2 [facility] Serum anion gap measurementO rdered By: Huang Lazcano on 04-08-2024 Serum anion gap measurement 4 Low 5-15 [facility] Serum or plasma calcium yocasta urement (mass/volume)Ordered By: Huang Lazcano on 04-08-2024 Calcium [Mass/Vol] 8.5 mg/dL 8.5-10.1 [facility] Serum or plasma creatinine m easurement (mass/volume)Ordered By: Huang Lazcano on 04-08-2024 Creatinine [Mass/Vol] 1.47 mg/dL High 0.70-1.30 [facility] Serum or plasma urea nitroge n measurement (mass/volume)Ordered By: Huang Lazcano on 04-08-2024 Urea nitrogen [Mass/Vol] 45 mg/dL High 7-18 [facility] Sodium levelOrdered By: Anam Lazcano on 04-08-2024 Sodium [Moles/Vol] 143 mmol/L 136-145 [facility] Sodium level 143 mmol/L 136-145 [facility] Urea nitrogen [Mass/Vol]Orde red By: Huang Lazcano on 04-08-2024 Serum or plasma urea nitrogen measurement (mass/volume) 45 mg/dL High 7-18 [facility] White blood cell (WBC) count Ordered By: Huang Lazcano on 04-08-2024 WBC (Bld) [#/Vol] 9.4 10*3/uL 4.4-11.0 [facility] White blood cell (WBC) count 9.4 K/mm3 4.4-11.0 [facility] Gram stainOrdered By: Anthony Singleton on 04-06-2024 Microscopic observation Gram stain Nom (Unsp spec) [facility] HbA1c (Bld) [Mass fraction]O rdered By: Jordan Driscoll on 04-06-2024 Hemoglobin A1c percentage 9.2 % High 3.8-5.6 [facility] Hemoglobin A1c percentageOrd ered By: Jordan Driscoll on 04-06-2024 HbA1c (Bld) [Mass fraction] 9.2 % High 3.8-5.6 [facility] Microbial respiratory cultur eOrdered By: Anthony Singleton on 04-06-2024 Microorganism identified Cx Nom (Unsp spec) Meth. resistant Staph. aureus Abnormal [facility] Microorganism identified Cx Nom (Unsp spec)Ordered By: Anthony Singleton on 04-06-2024 Microbial respiratory culture Meth. resistant Staph. aureus Abnormal [facility] ALP [Catalytic activity/Vol] Ordered By: Malachi Paredes on 04-05-2024 Serum or plasma alkaline phosphatase measurement 69 U/L 45-117 [facility] ALT [Catalytic activity/Vol] Ordered By: Malachi Paredes on 04-05-2024 Serum or plasma alanine aminotransferase (ALT) measurement 12 U/L Low 16-61 [facility] Activated partial thrombopla stin time (aPTT) in platelet poor plasma by coagulation aOrdered By: Malachi Paredes on 04-05-2024 aPTT Coag (PPP) [Time] 25.4 s 24.1-36.2 [facility] Albumin [Mass/Vol]Ordered By : Malachi Paredes on 04-05-2024 Serum or plasma albumin measurement (mass/volume) 3.1 g/dL Low 3.2-5.0 [facility] Albumin to globulin ratioOrd ered By: Malachi Paredes on 04-05-2024 Albumin to globulin ratio 0.8 RATIO Low 0.9-2.4 [facility] BNP (brain natriuretic pepti de measurement)Ordered By: Jordan Driscoll on 04-05-2024 Natriuretic peptide B (Bld) [Mass/Vol] 476.6 pg/mL High 0-100 [facility] BNP (brain natriuretic peptide measurement) 476.6 pg/mL High 0-100 [facility] Bacteria LM.HPF (Urine sed) [#/Area]Ordered By: Malachi Paredes on 04-05-2024 Urine sediment bacteria count by microscopy (number/high power field) 1+ /hpf None Seen [facility] Base excess Calc (BldV) [Mol es/Vol]Ordered By: Jordan Driscoll on 04-05-2024 Venous blood base excess measurement 0 mmol/L -1.0-3.5 [facility] Bilirubin Test strip Ql (U)O rdered By: Malachi Paredes on 04-05-2024 Bilirubin Ql (U) Negative Negative [facility] Bilirubin, totalOrdered By: Malachi Paredes on 04-05-2024 Bilirubin [Mass/Vol] 0.40 mg/dL 0.20-1.00 [facility] Bilirubin, total 0.40 mg/dL 0.20-1.00 [facility] Blood cultureOrdered By: Charlie Paredes on 04-05-2024 Bacteria identified Cx Nom (Bld) No growth in 5 days. [facility] Blood culture No growth in 5 days. [facility] Bacteria identified Cx Nom (Bld) No growth in 5 days. [facility] Blood culture No growth in 5 days. [facility] CO2 (BldV) [Moles/Vol]Ordere d By: Jordan Driscoll on 04-05-2024 CO2 [Moles/Vol] 26 mmol/L 23-33 [facility] Venous blood total carbon dioxide measurement 26 mmol/L 23-33 [facility] CO2 (BldV) [Partial pressure ]Ordered By: Jordan Driscoll on 04-05-2024 Venous blood partial pressure of carbon dioxide measurement 41.2 mmHg 41-51 [facility] Clarity (U)Ordered By: Malachi Paredes on 04-05-2024 Urine clarity Cloudy Clear [facility] Color (U)Ordered By: Malachi Paredes on 04-05-2024 Urine color determination Yellow Yellow [facility] Determination of fraction of inspired oxygenOrdered By: Jordan Driscoll on 04-05-2024 Determination of fraction of inspired oxygen 6.0 [facility] Epithelial cells.squamous LM Ql (Urine sed)Ordered By: Malachi Paredes on 04-05-2024 Squamous epithelial cells detection in urine sediment by light microscopy 0-5 SEEN /hpf 0-5 [facility] Glucose Ql (U)Ordered By: Edi Paredes on 04-05-2024 Urine glucose detection 1000 mg/dl High Normal [facility] Influenza virus A and B and SARS-CoV-2 (COVID-19) and Respiratory syncytial virus RNAOrdered By: Malachi Paredes on 04-05-2024 SARS-CoV-2 (COVID-19) RNA JUSTIN+probe Ql (Unsp spec) [facility] International normalized rat io (INR) calculationOrdered By: Malachi Paredes on 04-05-2024 International normalized ratio (INR) calculation 1.0 [facility] Ketones Test strip Ql (U)Ord ered By: Malachi Paredes on 04-05-2024 Ketones Ql (U) Negative Negative [facility] Lactic acid measurementOrder ed By: Malachi Paredes on 04-05-2024 Lactic acid measurement 1.3 mmol/L 0.4-2.0 [facility] Leukocyte esterase Test stri p Ql (U)Ordered By: Malachi Paredes on 04-05-2024 Urine leukocyte esterase detection by dipstick 500 /ul High Negative [facility] Lower GI hemoglobin IA Ql (S tl)Ordered By: Malachi Paredes on 04-05-2024 Stool gastrointestinal hemoglobin detection by immunologic method Positive Abnormal [facility] Microscopic analysis of urin e for red blood cells (RBC)Ordered By: Malachi Paredes on 04-05-2024 Microscopic analysis of urine for red blood cells (RBC) 5-10 SEEN /hpf 0-5 [facility] Mucus LM Ql (Urine sed)Order ed By: Malachi Paredes on 04-05-2024 Mucus Ql (Urine sed) 0 SEEN /hpf [facility] Mucus detection in urine sediment by light microscopy 0 SEEN /hpf [facility] Nitrite Test strip Ql (U)Ord ered By: Malachi Paredes on 04-05-2024 Nitrite Ql (U) Negative Negative [facility] No Panel InformationOrdered By: Jordan Driscoll on 04-05-2024 LEONEL [facility] Not entered [facility] Cannula [facility] Air bubble in sample [facility] No Panel InformationOrdered By: Malachi Paredes on 04-05-2024 6 U/L Low 15-37 [facility] Oxygen (BldV) [Partial press ure]Ordered By: Jordan Driscoll on 04-05-2024 Venous blood partial pressure of oxygen measurement 138 mmHg High 25-40 [facility] Protein Test strip Ql (U)Ord ered By: Malachi Paredes on 04-05-2024 Protein Ql (U) 30 mg/dl High Negative [facility] Urine protein assay by test strip, semi-quantitative 30 mg/dl High Negative [facility] Prothrombin timeOrdered By: Malachi Paredes on 04-05-2024 PT Coag (PPP) [Time] 13.6 s 11.7-14.9 [facility] Prothrombin time 13.6 SECONDS 11.7-14.9 [facility] Serum globulin measurementOr dered By: Malachi Paredes on 04-05-2024 Globulin (S) [Mass/Vol] 4.0 g/dL 2.2-4.2 [facility] Serum globulin measurement 4.0 g/dL 2.2-4.2 [facility] Serum or plasma alanine barber otransferase (ALT) measurementOrdered By: Malachi Paredes on 04-05-2024 ALT [Catalytic activity/Vol] 12 U/L Low 16-61 [facility] Serum or plasma albumin yocasta urement (mass/volume)Ordered By: Malachi Paredes on 04-05-2024 Albumin [Mass/Vol] 3.1 g/dL Low 3.2-5.0 [facility] Serum or plasma alkaline justin sphatase measurementOrdered By: Malachi Paredes on 04-05-2024 ALP [Catalytic activity/Vol] 69 U/L 45-117 [facility] Specific gravity (U) [Rel de nsity]Ordered By: Malachi Paredes on 04-05-2024 Urine specific gravity measurement 1.015 1.002-1.030 [facility] Squamous epithelial cells de tection in urine sediment by light microscopyOrdered By: Malachi Paredes on 04-05-2024 Epithelial cells.squamous LM Ql (Urine sed) 0-5 SEEN /hpf 0-5 [facility] Stool gastrointestinal hemog lobin detection by immunologic methodOrdered By: Malachi Paredes on 04-05-2024 Lower GI hemoglobin IA Ql (Stl) Positive Abnormal [facility] Total creatine kinase measur ementOrdered By: Jordan Driscoll on 04-05-2024 Total creatine kinase measurement 31 U/L Low 39-308 [facility] Total proteinOrdered By: Charlie Paredes on 04-05-2024 Protein [Mass/Vol] 7.1 g/dL 6.4-8.2 [facility] Total protein 7.1 g/dL 6.4-8.2 [facility] Troponin IOrdered By: Jordan Driscoll on 04-05-2024 Troponin I 33 pg/mL 3.0-78.0 [facility] Troponin I 33 pg/mL 3.0-78.0 [facility] Urine blood detectionOrdered By: Malachi Paredes on 04-05-2024 Urine blood detection 25 /ul High Negative [facility] Urine clarityOrdered By: hCarlie Paredes on 04-05-2024 Clarity (U) Cloudy Clear [facility] Urine color determinationOrd ered By: Malachi Paredes on 04-05-2024 Color (U) Yellow Yellow [facility] Urine cultureOrdered By: Charlie Paredes on 04-05-2024 Bacteria identified Cx Nom (U) Positive Abnormal [facility] Urine culture Positive Abnormal [facility] Urine glucose detectionOrder ed By: Malachi Paredes on 04-05-2024 Glucose Ql (U) 1000 mg/dl High Normal [facility] Urine leukocyte esterase det ection by dipstickOrdered By: Malachi Paredes on 04-05-2024 Leukocyte esterase Test strip Ql (U) 500 /ul High Negative [facility] Urine pHOrdered By: Malachi Paredes on 04-05-2024 pH (U) 6.0 [pH] 5.0 - 8.0 [facility] Urine sediment bacteria coun t by microscopy (number/high power field)Ordered By: Malachi Paredes on 04-05-2024 Bacteria LM.HPF (Urine sed) [#/Area] 1 /[HPF] None Seen [facility] Urine sediment renal epithel ial cell count by microscopy (number/high power field)Ordered By: Malachi Paredes on 04-05-2024 Epithelial cells.renal LM.HPF (Urine sed) [#/Area] 5 /[HPF] 0-5 [facility] Urine sediment yeast count b y microscopy (number/high powered field)Ordered By: Malachi Paredes on 04-05-2024 Yeast LM.HPF (Urine sed) [#/Area] 3 /[HPF] None Seen [facility] Urine specific gravity measu rementOrdered By: Malachi Paredes on 04-05-2024 Specific gravity (U) [Rel density] 1.015 1.002-1.030 [facility] Urine total bilirubin detect ion by test stripOrdered By: Malachi Paredes on 04-05-2024 Urine total bilirubin detection by test strip Negative Negative [facility] Urine urobilinogen measureme ntOrdered By: Malachi Paredes on 04-05-2024 Urobilinogen Ql (U) Normal mg/dl Normal [facility] Urobilinogen Ql (U)Ordered B y: Malachi Paredes on 04-05-2024 Urine urobilinogen measurement Normal mg/dl Normal [facility] Venous blood base excess vasquez surementOrdered By: Jordan Driscoll on 04-05-2024 Base excess Calc (BldV) [Moles/Vol] 0 mmol/L -1.0-3.5 [facility] Venous blood bicarbonate vasquez surementOrdered By: Jordan Driscoll on 04-05-2024 HCO3 (Bld) [Moles/Vol] 25 mmol/L - [facility] Venous blood bicarbonate measurement 25 mmol/L [facility] Venous blood oxygen saturati on measurementOrdered By: Jordan Driscoll on 04-05-2024 Venous blood oxygen saturation measurement 99 % High 50-70 [facility] Venous blood pH measurementO rdered By: Jordan Driscoll on 04-05-2024 pH (BldV) 7.39 [pH] 7.32-7.42 [facility] Venous blood partial pressur e of carbon dioxide measurementOrdered By: Jordan Driscoll on 04-05-2024 CO2 (BldV) [Partial pressure] 41.2 mm[Hg] 41-51 [facility] Venous blood partial pressur e of oxygen measurementOrdered By: Jordan Driscoll on 04-05-2024 Oxygen (BldV) [Partial pressure] 138 mm[Hg] High 25-40 [facility] White blood cell countOrdere d By: Malachi Paredes on 02-10-2025 White blood cell count >100 SEEN /hpf 0-5 [facility] White blood cell count >100 SEEN /hpf 0-5 [facility] Yeast LM.HPF (Urine sed) [#/ Area]Ordered By: Malachi Paredes on 04-05-2024 Urine sediment yeast count by microscopy (number/high powered field) 3+ /hpf None Seen [facility] aPTT Coag (PPP) [Time]Ordere d By: Malachi Paredes on 04-05-2024 Activated partial thromboplastin time (aPTT) in platelet poor plasma by coagulation a 25.4 Seconds 24.1-36.2 [facility] pH (BldV)Ordered By: Jordan avelar on 04-05-2024 Venous blood pH measurement 7.39 7.32-7.42 [facility] pH (U)Ordered By: Malachi Paredes on 04-05-2024 Urine pH 6.0 5.0 - 8.0 [facility] Microorganism identified Cx Nom (Unsp spec)Ordered By: GERA Naik on 03-05-2024 Microbial respiratory culture Pseudomonas aeruginosa Abnormal [facility] [id number] DOrdered By: Andre Will on 01-27-2024 [id number] D 23.0 ng/mL [facility] Estimated glomerular filtrat ion rate (GFR) AmericanOrdered By: Tobi Zapata on 01-27-2024 Estimated glomerular filtration rate (GFR) 60 mL/min >60 [facility] HbA1c (Bld) [Mass fraction]O rdered By: Donna Will on 01-27-2024 Hemoglobin A1c percentage 9.2 % High 3.8-5.6 [facility] Hemoglobin A1c percentageOrd ered By: Donna Will on 01-27-2024 HbA1c (Bld) [Mass fraction] 9.2 % High 3.8-5.6 [facility] Serum or plasma thyroid stim ulating hormone (TSH) measurement (units/volume)Ordered By: Donna Will on 01-27-2024 TSH Qn 1.880 uIU/mL 0.358-3.740 [facility] TSH QnOrdered By: Donna francor on 01-27-2024 Serum or plasma thyroid stimulating hormone (TSH) measurement (units/volume) 1.880 uIU/mL 0.358-3.740 [facility] Absolute lymphocyte countOrd ered By: Tobi Zapata on 06-05-2023 Lymphocytes Auto (Unsp spec) [#/Vol] 1.84 10*3/uL 0.83-4.51 [facility] Activated partial thrombopla stin time (aPTT) in platelet poor plasma by coagulation aOrdered By: Tobi Zapata on 06-05-2023 aPTT Coag (PPP) [Time] 26.2 s 24.1-36.2 [facility] Automated lymphocyte count a s percentage of total leukocytesOrdered By: Tobi Zapata on 06-05-2023 Lymphocytes/100 WBC Auto (Unsp spec) 24.6 % 19-41 [facility] Basophil percentageOrdered B y: Tobi Zapata on 06-05-2023 Basophil percentage 9.2 g/dL 13.0-16.5 [facility] Basophils (Bld) [#/Vol] 7.5 10*3/uL 4.4-11.0 [facility] Basophils (Bld) [#/Vol] 4.6 10*3/uL 2.0-7.7 [facility] Basophils/100 WBC (Bld) 61.9 % 47-70 [facility] Basophils/100 WBC (Bld) 10.2 % 0-10 [facility] Basophils/100 WBC (Bld) 2.0 % 0-5 [facility] Basophils/100 WBC (Bld) 0.4 % 0-1 [facility] Determination of erythrocyte mean corpuscular volume (MCV)Ordered By: Tobi Zapata on 06-05-2023 MCV (RBC) [Entitic vol] 95.9 fL 80-94 [facility] Erythrocyte distribution wid th ratioOrdered By: Tobi Zapata on 06-05-2023 Erythrocyte distribution width (RBC) [Ratio] 17.9 % 11.6-14.6 [facility] Erythrocyte distribution wid th standard deviationOrdered By: Tobi Zapata on 06-05-2023 Erythrocyte distribution width (RBC) [Entitic vol] 61.8 fL 35.1-43.9 [facility] Hematocrit Auto (Bld) [Volum e fraction]Ordered By: Tobi Zapata on 06-05-2023 Hematocrit (Bld) [Volume fraction] 30.5 % 40-54 [facility] Immature granulocytes/100 WB C Auto (Bld)Ordered By: Tobi Zapata on 06-05-2023 Immature granulocytes/100 WBC (Bld) 0.900 % 0.0-0.9 [facility] No Panel InformationOrdered By: Tobi Benny on 06-05-2023 28.9 pg 27.0-32.0 [facility] 30.2 g/dL 32-36 [facility] 242 K/mm3 150-450 [facility] 11.1 fl 6.2-12.0 [facility] 0.4 % 0-5 [facility] 14.1 SECONDS 11.7-14.9 [facility] 1.1 [facility] RBC Auto (Bld) [#/Vol]Ordere d By: Tobi Zapata on 06-05-2023 RBC (Bld) [#/Vol] 3.18 10*6/uL 4.6-6.2 [facility] Absolute lymphocyte countOrd ered By: Tobi Zapata on 05-28-2023 Lymphocytes Auto (Unsp spec) [#/Vol] 1.41 10*3/uL 0.83-4.51 [facility] Automated lymphocyte count a s percentage of total leukocytesOrdered By: Tobi Zapata on 05-28-2023 Lymphocytes/100 WBC Auto (Unsp spec) 19.1 % 19-41 [facility] Basophil percentageOrdered B y: Tobi Zapata on 05-28-2023 Basophil percentage 8.5 g/dL 13.0-16.5 [facility] Basophil percentage 231 mg/dL 74-106 [facility] Basophil percentage 6.5 g/dL 6.4-8.2 [facility] Basophil percentage 0.50 mg/dL 0.20-1.00 [facility] Basophil percentage 141 mmol/L 136-145 [facility] Basophil percentage 4.6 mmol/L 3.5-5.1 [facility] Basophil percentage 107 mmol/L 98-107 [facility] Basophil percentage 201 U/L 87-241 [facility] Basophils (Bld) [#/Vol] 7.4 10*3/uL 4.4-11.0 [facility] Basophils (Bld) [#/Vol] 4.8 10*3/uL 2.0-7.7 [facility] Basophils/100 WBC (Bld) 65.0 % 47-70 [facility] Basophils/100 WBC (Bld) 10.2 % 0-10 [facility] Basophils/100 WBC (Bld) 3.8 % 0-5 [facility] Basophils/100 WBC (Bld) 0.5 % 0-1 [facility] Carcinoembryonic Ag [Mass/Vo l]Ordered By: Tobi Zapata on 05-28-2023 Serum or plasma carcinoembryonic antigen measurement (mass/volume) 3.4 ng/mL 0.0-4.7 [facility] Deamidated gliadin IgA antib lashon assayOrdered By: Tobi Zapata on 05-28-2023 Deamidated gliadin IgA antibody assay 3 units 0-19 [facility] Deamidated gliadin IgG antib lashon assayOrdered By: Tobi Zapata on 05-28-2023 Deamidated gliadin IgG antibody assay 2 units 0-19 [facility] Determination of erythrocyte mean corpuscular volume (MCV)Ordered By: Tobi Zapata on 05-28-2023 MCV (RBC) [Entitic vol] 95.3 fL 80-94 [facility] Endomysial IgA antibody assa yOrdered By: Tobi Zapata on 05-28-2023 Endomysial IgA antibody assay Negative Negative [facility] Erythrocyte distribution wid th ratioOrdered By: Tobi Zapata on 05-28-2023 Erythrocyte distribution width (RBC) [Ratio] 17.4 % 11.6-14.6 [facility] Erythrocyte distribution wid th standard deviationOrdered By: Tobi Zapata on 05-28-2023 Erythrocyte distribution width (RBC) [Entitic vol] 59.6 fL 35.1-43.9 [facility] Erythrocyte sedimentation ra teOrdered By: Tobi Zapata on 05-28-2023 ESR (Bld) [Velocity] 11 mm/h 0-20 [facility] HaptoglobinOrdered By: Stephen Zapata on 05-28-2023 Haptoglobin 150 mg/dL 34-355 [facility] Hematocrit Auto (Bld) [Volum e fraction]Ordered By: Tobi Zapata on 05-28-2023 Hematocrit (Bld) [Volume fraction] 28.5 % 40-54 [facility] Hemoglobin in reticulocytes (mass per reticulocyte)Ordered By: Tobi Zapata on 05-28-2023 Hemoglobin (Reticulocytes) [Entitic mass] 29.1 pg 30-35 [facility] Immature granulocytes/100 WB C Auto (Bld)Ordered By: Tobi Zapata on 05-28-2023 Immature granulocytes/100 WBC (Bld) 1.400 % 0.0-0.9 [facility] Iron measurement (mass/mass) Ordered By: Tobi Zapata on 05-28-2023 Iron (Unsp spec) [Mass/Mass] 43 ug/dL 65-175 [facility] No Panel InformationOrdered By: Tobi Zapata on 05-28-2023 28.4 pg 27.0-32.0 [facility] 29.8 g/dL 32-36 [facility] 210 K/mm3 150-450 [facility] 11.1 fl 6.2-12.0 [facility] 0 % 0-5 [facility] 31.50 % 3.00-15.90 [facility] 40 mL/min >60 [facility] 48 mL/min >60 [facility] 46.00 ml/min [facility] 18.5 RATIO 10-20 [facility] 3.2 g/dL 2.2-4.2 [facility] 1.0 RATIO 0.9-2.4 [facility] 71 U/L 45-117 [facility] 23 U/L 16-61 [facility] 29.0 mmol/L 21.0-32.0 [facility] 7.35 mg/L 0.0-3.0 [facility] 285 ug/dL 250-450 [facility] 28 ng/mL 26-388 [facility] RBC Auto (Bld) [#/Vol]Ordere d By: Tobi Zapata on 05-28-2023 RBC (Bld) [#/Vol] 2.99 10*6/uL 4.6-6.2 [facility] Reticulocytes Auto (Bld) [#/ Vol]Ordered By: Tobi Zapata on 05-28-2023 Reticulocytes/100 RBC (Bld) 3.18 % 0.5-1.5 [facility] Serum immunoglobulin A measu rementOrdered By: Tobi Zapata on 05-28-2023 Serum immunoglobulin A measurement 12 mg/dL Low 61-437 [facility] Serum or plasma calcium yocasta urement (mass/volume)Ordered By: Tobi Zapata on 05-28-2023 Calcium [Mass/Vol] 8.5 mg/dL 8.5-10.1 [facility] Serum or plasma carcinoembry onic antigen measurement (mass/volume)Ordered By: Tobi Zapata on 05-28-2023 Carcinoembryonic Ag [Mass/Vol] 3.4 ng/mL 0.0-4.7 [facility] Serum or plasma creatinine m easurement (mass/volume)Ordered By: Tobi Zapata on 05-28-2023 Creatinine [Mass/Vol] 1.78 mg/dL 0.70-1.30 [facility] Serum or plasma iron saturat ion measurement (mass fraction)Ordered By: Tobi Zapata on 05-28-2023 Iron saturation [Mass fraction] 15.1 % 15.0-55.0 [facility] Serum or plasma urea nitroge n measurement (mass/volume)Ordered By: Tobi Zapata on 05-28-2023 Urea nitrogen [Mass/Vol] 33 mg/dL 7-18 [facility] Serum tissue transglutaminas e (tTG) IgA antibody assay (units/volume)Ordered By: Tobi Zapata on 05-28-2023 Serum tissue transglutaminase (tTG) IgA antibody assay (units/volume) <2 U/mL 0-5 [facility] Serum tissue transglutaminas e IgA antibody assay (units/volume)Ordered By: Tobi Zapata on 05-28-2023 tTG IgA Qn (S) <2 U/mL 0-3 [facility] Thin prep Papanicolaou smear with manual screeningOrdered By: Tobi Zapata on 05-28-2023 Thin prep Papanicolaou smear with manual screening 3.3 g/dL 3.2-5.0 [facility] Thin prep Papanicolaou smear with manual screening 13 U/L 15-37 [facility] Thin prep Papanicolaou smear with manual screening 5 5-15 [facility] No Panel InformationOrdered By: Jennifer Galdamez on 05-12-2023 523.9 pg/mL 0-100 [facility] Absolute lymphocyte countOrd ered By: Donna Will on 05-07-2023 Lymphocytes Auto (Unsp spec) [#/Vol] 0.96 10*3/uL 0.83-4.51 [facility] Automated lymphocyte count a s percentage of total leukocytesOrdered By: Donna Will on 05-07-2023 Lymphocytes/100 WBC Auto (Unsp spec) 10.6 % 19-41 [facility] Basophil percentageOrdered B y: Donna Will on 05-07-2023 Basophil percentage 7.4 g/dL 13.0-16.5 [facility] Basophil percentage 198 mg/dL 74-106 [facility] Basophil percentage 142 mmol/L 136-145 [facility] Basophil percentage 4.3 mmol/L 3.5-5.1 [facility] Basophil percentage 107 mmol/L 98-107 [facility] Basophils (Bld) [#/Vol] 9.1 10*3/uL 4.4-11.0 [facility] Basophils (Bld) [#/Vol] 7.0 10*3/uL 2.0-7.7 [facility] Basophils/100 WBC (Bld) 76.9 % 47-70 [facility] Basophils/100 WBC (Bld) 8.5 % 0-10 [facility] Basophils/100 WBC (Bld) 2.3 % 0-5 [facility] Basophils/100 WBC (Bld) 0.3 % 0-1 [facility] Determination of erythrocyte mean corpuscular volume (MCV)Ordered By: Donna Will on 05-07-2023 MCV (RBC) [Entitic vol] 96.6 fL 80-94 [facility] Erythrocyte distribution wid th ratioOrdered By: Donna Will on 05-07-2023 Erythrocyte distribution width (RBC) [Ratio] 17.1 % 11.6-14.6 [facility] [facility] Erythrocyte distribution wid th standard deviationOrdered By: Donna Will on 05-07-2023 Erythrocyte distribution width (RBC) [Entitic vol] 60.3 fL 35.1-43.9 [facility] Hematocrit Auto (Bld) [Volum e fraction]Ordered By: Donna Will on 05-07-2023 Hematocrit (Bld) [Volume fraction] 25.2 % 40-54 [facility] Immature granulocytes/100 WB C Auto (Bld)Ordered By: Donna Will on 05-07-2023 Immature granulocytes/100 WBC (Bld) 1.400 % 0.0-0.9 [facility] No Panel InformationOrdered By: Donna Will on 05-07-2023 28.4 pg 27.0-32.0 [facility] 29.4 g/dL 32-36 [facility] 301 K/mm3 150-450 [facility] 10.9 fl 6.2-12.0 [facility] 0 % 0-5 [facility] 41 mL/min >60 [facility] 50 mL/min >60 [facility] 23.6 RATIO 10-20 [facility] 29.0 mmol/L 21.0-32.0 [facility] RBC Auto (Bld) [#/Vol]Ordere d By: Donna Will on 05-07-2023 RBC (Bld) [#/Vol] 2.61 10*6/uL 4.6-6.2 [facility] Serum or plasma calcium yocasta urement (mass/volume)Ordered By: Donna Will on 05-07-2023 Calcium [Mass/Vol] 8.9 mg/dL 8.5-10.1 [facility] Serum or plasma creatinine m easurement (mass/volume)Ordered By: Donna Will on 05-07-2023 Creatinine [Mass/Vol] 1.74 mg/dL 0.70-1.30 [facility] Serum or plasma urea nitroge n measurement (mass/volume)Ordered By: Donna Will on 05-07-2023 Urea nitrogen [Mass/Vol] 41 mg/dL 7-18 [facility] Thin prep Papanicolaou smear with manual screeningOrdered By: Donna Will on 05-07-2023 Thin prep Papanicolaou smear with manual screening 6 5-15 [facility] Absolute lymphocyte countOrd ered By: Tobi Zapata on 04-25-2023 Lymphocytes Auto (Unsp spec) [#/Vol] 1.48 10*3/uL 0.83-4.51 [facility] Automated lymphocyte count a s percentage of total leukocytesOrdered By: Tobi Zapata on 04-25-2023 Lymphocytes/100 WBC Auto (Unsp spec) 21.7 % 19-41 [facility] Basophil percentageOrdered B y: Tobi Zapata on 04-25-2023 Basophil percentage 7.6 g/dL 13.0-16.5 [facility] Basophil percentage 192 mg/dL 74-106 [facility] Basophil percentage 6.0 g/dL 6.4-8.2 [facility] Basophil percentage 0.30 mg/dL 0.20-1.00 [facility] Basophil percentage 143 mmol/L 136-145 [facility] Basophil percentage 4.1 mmol/L 3.5-5.1 [facility] Basophil percentage 111 mmol/L 98-107 [facility] Basophil percentage 163 U/L 87-241 [facility] Basophils (Bld) [#/Vol] 6.8 10*3/uL 4.4-11.0 [facility] Basophils (Bld) [#/Vol] 4.0 10*3/uL 2.0-7.7 [facility] Basophils/100 WBC (Bld) 59.2 % 47-70 [facility] Basophils/100 WBC (Bld) 11.0 % 0-10 [facility] Basophils/100 WBC (Bld) 6.4 % 0-5 [facility] Basophils/100 WBC (Bld) 0.7 % 0-1 [facility] Determination of erythrocyte mean corpuscular volume (MCV)Ordered By: Tobi Zapata on 04-25-2023 MCV (RBC) [Entitic vol] 94.8 fL 80-94 [facility] Erythrocyte distribution wid th ratioOrdered By: Tobi Zapata on 04-25-2023 Erythrocyte distribution width (RBC) [Ratio] 17.4 % 11.6-14.6 [facility] Erythrocyte distribution wid th standard deviationOrdered By: Tobi Zapata on 04-25-2023 Erythrocyte distribution width (RBC) [Entitic vol] 60.3 fL 35.1-43.9 [facility] Hematocrit Auto (Bld) [Volum e fraction]Ordered By: Tobi Zapata on 04-25-2023 Hematocrit (Bld) [Volume fraction] 25.5 % 40-54 [facility] Immature granulocytes/100 WB C Auto (Bld)Ordered By: Tobi Zapata on 04-25-2023 Immature granulocytes/100 WBC (Bld) 1.000 % 0.0-0.9 [facility] Iron measurement (mass/mass) Ordered By: Tobi Zapata on 04-25-2023 Iron (Unsp spec) [Mass/Mass] 28 ug/dL 65-175 [facility] No Panel InformationOrdered By: Tobi Zapata on 04-25-2023 28.3 pg 27.0-32.0 [facility] 29.8 g/dL 32-36 [facility] 269 K/mm3 150-450 [facility] 11.1 fl 6.2-12.0 [facility] 0 % 0-5 [facility] 53 mL/min >60 [facility] 64 mL/min >60 [facility] 19.3 RATIO 10-20 [facility] 3.3 g/dL 2.2-4.2 [facility] 0.8 RATIO 0.9-2.4 [facility] 96 U/L 45-117 [facility] 13 U/L 16-61 [facility] 31.0 mmol/L 21.0-32.0 [facility] 212 ug/dL 250-450 [facility] 57 ng/mL 26-388 [facility] RBC Auto (Bld) [#/Vol]Ordere d By: Tobi Zapata on 04-25-2023 RBC (Bld) [#/Vol] 2.69 10*6/uL 4.6-6.2 [facility] Serum or plasma calcium yocasta urement (mass/volume)Ordered By: Tobi Zapata on 04-25-2023 Calcium [Mass/Vol] 8.6 mg/dL 8.5-10.1 [facility] Serum or plasma creatinine m easurement (mass/volume)Ordered By: Tobi Zapata on 04-25-2023 Creatinine [Mass/Vol] 1.40 mg/dL 0.70-1.30 [facility] Serum or plasma iron saturat ion measurement (mass fraction)Ordered By: Tobi Zapata on 04-25-2023 Iron saturation [Mass fraction] 13.2 % 15.0-55.0 [facility] Serum or plasma urea nitroge n measurement (mass/volume)Ordered By: Tobi Zapata on 04-25-2023 Urea nitrogen [Mass/Vol] 27 mg/dL 7-18 [facility] Thin prep Papanicolaou smear with manual screeningOrdered By: Tobi Zapata on 04-25-2023 Thin prep Papanicolaou smear with manual screening 2.7 g/dL 3.2-5.0 [facility] Thin prep Papanicolaou smear with manual screening 6 U/L 15-37 [facility] Thin prep Papanicolaou smear with manual screening 1 5-15 [facility] Absolute lymphocyte countOrd ered By: Donna Will on 04-17-2023 Lymphocytes Auto (Unsp spec) [#/Vol] 2.00 10*3/uL 0.83-4.51 [facility] Automated lymphocyte count a s percentage of total leukocytesOrdered By: Donna Will on 04-17-2023 Lymphocytes/100 WBC Auto (Unsp spec) 25.3 % 19-41 [facility] Basophil percentageOrdered B y: Donna Will on 04-17-2023 Basophil percentage 7.9 g/dL 13.0-16.5 [facility] Basophils (Bld) [#/Vol] 7.9 10*3/uL 4.4-11.0 [facility] Basophils (Bld) [#/Vol] 4.6 10*3/uL 2.0-7.7 [facility] Basophils/100 WBC (Bld) 58.4 % 47-70 [facility] Basophils/100 WBC (Bld) 9.4 % 0-10 [facility] Basophils/100 WBC (Bld) 4.6 % 0-5 [facility] Basophils/100 WBC (Bld) 0.8 % 0-1 [facility] Determination of erythrocyte mean corpuscular volume (MCV)Ordered By: Donna Will on 04-17-2023 MCV (RBC) [Entitic vol] 96.8 fL 80-94 [facility] Erythrocyte distribution wid th ratioOrdered By: Donna Will on 04-17-2023 Erythrocyte distribution width (RBC) [Ratio] 17.4 % 11.6-14.6 [facility] Erythrocyte distribution wid th standard deviationOrdered By: Donna Will on 04-17-2023 Erythrocyte distribution width (RBC) [Entitic vol] 61.5 fL 35.1-43.9 [facility] Hematocrit Auto (Bld) [Volum e fraction]Ordered By: Donna Will on 04-17-2023 Hematocrit (Bld) [Volume fraction] 26.9 % 40-54 [facility] Immature granulocytes/100 WB C Auto (Bld)Ordered By: Donna Will on 04-17-2023 Immature granulocytes/100 WBC (Bld) 1.500 % 0.0-0.9 [facility] Iron measurement (mass/mass) Ordered By: Donna Will on 04-17-2023 Iron (Unsp spec) [Mass/Mass] 49 ug/dL 65-175 [facility] No Panel InformationOrdered By: Donna Will on 04-17-2023 28.4 pg 27.0-32.0 [facility] 29.4 g/dL 32-36 [facility] 338 K/mm3 150-450 [facility] 10.9 fl 6.2-12.0 [facility] 0 % 0-5 [facility] 238 ug/dL 250-450 [facility] RBC Auto (Bld) [#/Vol]Ordere d By: Donna Will on 04-17-2023 RBC (Bld) [#/Vol] 2.78 10*6/uL 4.6-6.2 [facility] Serum or plasma iron saturat ion measurement (mass fraction)Ordered By: Donna Will on 04-17-2023 Iron saturation [Mass fraction] 20.6 % 15.0-55.0 [facility] Basophil percentageOrdered B y: Donna Will on 04-03-2023 Basophil percentage 146 mg/dL 74-106 [facility] Basophil percentage 141 mmol/L 136-145 [facility] Basophil percentage 4.2 mmol/L 3.5-5.1 [facility] Basophil percentage 108 mmol/L 98-107 [facility] No Panel InformationOrdered By: Donna Will on 04-03-2023 43 mL/min >60 [facility] 52 mL/min >60 [facility] 12.7 RATIO 10-20 [facility] 1.6 mg/dL 1.6-2.6 [facility] 30.0 mmol/L 21.0-32.0 [facility] Serum or plasma calcium yocasta urement (mass/volume)Ordered By: Donna Will on 04-03-2023 Calcium [Mass/Vol] 8.0 mg/dL 8.5-10.1 [facility] Serum or plasma creatinine m easurement (mass/volume)Ordered By: Donna Will on 04-03-2023 Creatinine [Mass/Vol] 1.66 mg/dL 0.70-1.30 [facility] Serum or plasma urea nitroge n measurement (mass/volume)Ordered By: Donna Will on 04-03-2023 Urea nitrogen [Mass/Vol] 21 mg/dL 7-18 [facility] Thin prep Papanicolaou smear with manual screeningOrdered By: Donna Will on 04-03-2023 Thin prep Papanicolaou smear with manual screening 3 5-15 [facility] 36on 03-21-2023 36 S: Pt's calling [facility] Nurse Advice Line regarding prescription problem. B: Pt was discharged today from [facility]. A: states [facility] insurance will not cover pt's insulin that was prescribed at discharge. wants to know why, and also what he can take instead. R: Advised that she has reached the [facility] Nurse Advice Line, and to please call the other number on her card regarding prescriptions. Caller ended call. Reason for Disposition [1] Follow-up call to recent contact AND [2] information only call, no triage required Protocols used: Information Only Call - [facility] Thin prep Papanicolaou smear with manual screeningOrdered By: Clive Sharp on 03-21-2023 Thin prep Papanicolaou smear with manual screening 171 mg/dL 74-106 [facility] Absolute lymphocyte countOrd ered By: Anthony Singleton on 03-19-2023 Lymphocytes Auto (Unsp spec) [#/Vol] 1.19 10*3/uL 0.83-4.51 [facility] Automated lymphocyte count a s percentage of total leukocytesOrdered By: Anthony Singleton on 03-19-2023 Lymphocytes/100 WBC Auto (Unsp spec) 11.9 % 19-41 [facility] Basophil percentageOrdered B y: Anthony Singleton on 03-19-2023 Basophil percentage 8.6 g/dL 13.0-16.5 [facility] Basophil percentage 120 mg/dL 74-106 [facility] Basophil percentage 142 mmol/L 136-145 [facility] Basophil percentage 4.1 mmol/L 3.5-5.1 [facility] Basophil percentage 107 mmol/L 98-107 [facility] Basophils (Bld) [#/Vol] 10.0 10*3/uL 4.4-11.0 [facility] Basophils (Bld) [#/Vol] 7.6 10*3/uL 2.0-7.7 [facility] Basophils/100 WBC (Bld) 76.0 % 47-70 [facility] Basophils/100 WBC (Bld) 7.1 % 0-10 [facility] Basophils/100 WBC (Bld) 2.8 % 0-5 [facility] Basophils/100 WBC (Bld) 0.3 % 0-1 [facility] Determination of erythrocyte mean corpuscular volume (MCV)Ordered By: Anthony Singleton on 03-19-2023 MCV (RBC) [Entitic vol] 99.0 fL 80-94 [facility] Erythrocyte distribution wid th ratioOrdered By: Anthony Singleton on 03-19-2023 Erythrocyte distribution width (RBC) [Ratio] 19.3 % 11.6-14.6 [facility] Erythrocyte distribution wid th standard deviationOrdered By: Anthony Singleton on 03-19-2023 Erythrocyte distribution width (RBC) [Entitic vol] 62.5 fL 35.1-43.9 [facility] Hematocrit Auto (Bld) [Volum e fraction]Ordered By: Anthony Singleton on 03-19-2023 Hematocrit (Bld) [Volume fraction] 29.0 % 40-54 [facility] Immature granulocytes/100 WB C Auto (Bld)Ordered By: Anthony Singleton on 03-19-2023 Immature granulocytes/100 WBC (Bld) 1.900 % 0.0-0.9 [facility] No Panel InformationOrdered By: Anthony Singleton on 03-19-2023 29.4 pg 27.0-32.0 [facility] 29.7 g/dL 32-36 [facility] 166 K/mm3 150-450 [facility] 0.6 % 0-5 [facility] 28 mL/min >60 [facility] 34 mL/min >60 [facility] 32.04 ml/min [facility] 30.5 RATIO 10-20 [facility] 32.0 mmol/L 21.0-32.0 [facility] Platelet mean volume Edmundo-Ec ker (Bld) [Entitic vol]Ordered By: Anthony Singelton on 03-19-2023 Platelet mean volume (Bld) [Entitic vol] 11.4 fL 6.2-12.0 [facility] RBC Auto (Bld) [#/Vol]Ordere d By: Anthony Singleton on 03-19-2023 RBC (Bld) [#/Vol] 2.93 10*6/uL 4.6-6.2 [facility] Serum or plasma calcium yocasta urement (mass/volume)Ordered By: Anthony Singleton on 03-19-2023 Calcium [Mass/Vol] 7.7 mg/dL 8.5-10.1 [facility] Serum or plasma creatinine m easurement (mass/volume)Ordered By: Anthony Singleton on 03-19-2023 Creatinine [Mass/Vol] 2.43 mg/dL 0.70-1.30 [facility] Serum or plasma urea nitroge n measurement (mass/volume)Ordered By: Anthony Singleton on 03-19-2023 Urea nitrogen [Mass/Vol] 74 mg/dL 7-18 [facility] Thin prep Papanicolaou smear with manual screeningOrdered By: Anthony Singleton on 03-19-2023 Thin prep Papanicolaou smear with manual screening 3 5-15 [facility] Anaerobic cultureOrdered By: Nadira Ricks on 03-18-2023 Bacteria identified Anaer cx Nom (Unsp spec) No growth in 5 days. [facility] Bacteria identified Anaer cx Nom (Unsp spec) No growth in 5 days. [facility] Body fluid appearanceOrdered By: Nadira Ricks on 03-18-2023 Appearance (Body fld) CLEAR [facility] Body fluid color determinati onOrdered By: Nadira Ricks on 03-18-2023 Color (Body fld) YELLOW [facility] Body fluid lactate dehydroge nase measurement (enzymatic activity/volume) by pyruvateOrdered By: Nadira Ricks on 03-18-2023 LDH Pyruvate to lactate reaction (Body fld) [Catalytic activity/Vol] 61 Units/L Not Establ. [facility] Body fluid leukocytes count (number/volume)Ordered By: Nadira Ricks on 03-18-2023 WBC (Body fld) [#/Vol] 0.218 10*3/uL [facility] Body fluid lymphocytes/100 l eukocytesOrdered By: Nadira Ricks on 03-18-2023 Lymphocytes/100 WBC (Body fld) 19 % [facility] Body fluid mesothelial cell percentageOrdered By: Nadira Ricks on 03-18-2023 Mesothelial cells/100 WBC (Body fld) 0 % [facility] Body fluid mononuclear cell percentageOrdered By: Nadira Ricks on 03-18-2023 Mononuclear cells/100 WBC (Body fld) 65.6 % [facility] Body fluid other cell count as percentage of leukocytesOrdered By: Nadira Ricks on 03-18-2023 Other cells/100 WBC (Body fld) 1 % [facility] Body fluid polymorphonuclear leukocyte countOrdered By: Nadira Ricks on 03-18-2023 Polymorphonuclear cells (Body fld) [#/Vol] 0.075 10^3/uL [facility] Body fluid protein measureme nt (mass/volume)Ordered By: Nadira Ricks on 03-18-2023 Protein (Body fld) [Mass/Vol] 1.1 g/dL Not Establ. [facility] Body fluid segmented neutrop hils count (number/volume)Ordered By: Nadira Ricks on 03-18-2023 Segmented neutrophils (Body fld) [#/Vol] 60 % [facility] Body fluid total cell countO rdered By: Nadira Ricks on 03-18-2023 Cells Counted Total (Body fld) [#] 0.257 10^3/ul [facility] Cytology report of Body flui d Cyto stainOrdered By: Nadira Ricks on 03-18-2023 Cytology report Cyto stain Doc (Body fld) SEE PATHOLOGY REPORT [facility] Gram stain for investigation of transfusion reactionOrdered By: Nadira Ricks on 03-18-2023 Microscopic observation Gram stain Nom (Unsp spec) [facility] Microscopic observation Gram stain Nom (Unsp spec) [facility] No Panel InformationOrdered By: Nadira Ricks on 03-18-2023 35 /mm3 [facility] 34.4 % [facility] 0.143 10^3/uL [facility] SEE COMMENT [facility] 196 mg/dL 40-70 [facility] Culture exhibits no growth. [facility] Culture exhibits no growth. [facility] Pathologist interpretation o f Body fluid testsOrdered By: Nadira Ricks on 03-18-2023 Pathologist interpretation (Body fld) [Interp] Reviewed [facility] Specimen source identificati on of body fluidOrdered By: Nadira Ricks on 03-18-2023 Specimen source Nom (Body fld) THORACENTESIS [facility] Thin prep Papanicolaou smear with manual screeningOrdered By: Nadira Ricks on 03-18-2023 Thin prep Papanicolaou smear with manual screening 20 % [facility] Basophil percentageOrdered B y: Nadira Ricks on 03-17-2023 Basophil percentage 5.3 g/dL 6.4-8.2 [facility] Basophil percentage 4.1 mg/dL 2.5-4.9 [facility] Basophil percentage 0.60 mg/dL 0.20-1.00 [facility] Basophil percentage 232 U/L 87-241 [facility] No Panel InformationOrdered By: Anthony Singleton on 03-17-2023 Negative Negative [facility] 650.8 pg/mL 0-100 [facility] No Panel InformationOrdered By: Nadira Ricks on 03-17-2023 2.4 g/dL 2.2-4.2 [facility] 1.2 RATIO 0.9-2.4 [facility] 61 U/L 45-117 [facility] 18 U/L 16-61 [facility] 2.1 mg/dL 1.6-2.6 [facility] 984 pg/mL 3.0-78.0 [facility] Serum procalcitonin measurem entOrdered By: Anthony Singleton on 03-17-2023 Procalcitonin [Mass/Vol] 0.28 ng/mL 0.00-0.09 [facility] Thin prep Papanicolaou smear with manual screeningOrdered By: Nadira Ricks on 03-17-2023 Thin prep Papanicolaou smear with manual screening 2.9 g/dL 3.2-5.0 [facility] Thin prep Papanicolaou smear with manual screening 11 U/L 15-37 [facility] Absolute lymphocyte countOrd ered By: Eva Marie on 03-16-2023 Lymphocytes Auto (Unsp spec) [#/Vol] 1.54 10*3/uL 0.83-4.51 [facility] Activated partial thrombopla stin time (aPTT) in platelet poor plasma by coagulation aOrdered By: Eva Marie on 03-16-2023 aPTT Coag (PPP) [Time] 24.5 s 24.1-36.2 [facility] Assessment of wrist artery p atency prior to arterial punctureOrdered By: Nadira Ricks on 03-16-2023 Arterial patency Wrist artery --pre arterial puncture Positive [facility] Automated lymphocyte count a s percentage of total leukocytesOrdered By: Eva Marie on 03-16-2023 Lymphocytes/100 WBC Auto (Unsp spec) 7.3 % 19-41 [facility] Base excessOrdered By: Isak Ricks on 03-16-2023 Base excess Calc (BldV) [Moles/Vol] 5 mmol/L -2-2 [facility] Base excessOrdered By: Rigo Marie on 03-16-2023 Base excess Calc (BldV) [Moles/Vol] 5 mmol/L -1.0-3.5 [facility] Basophil percentageOrdered B y: Nadira Ricks on 03-16-2023 Basophil percentage 32 mmol/L [facility] Basophils/100 WBC (Bld) 97 % 95-99 [facility] Basophil percentageOrdered B y: Eva Marie on 03-16-2023 Basophil percentage 1.8 mmol/L 0.4-2.0 [facility] Basophil percentage 50-100 SEEN /hpf 0-5 [facility] Basophil percentage 5.0 g/dL 13.0-16.5 [facility] Basophil percentage 817 mg/dL 74-106 [facility] Basophil percentage 5.2 g/dL 6.4-8.2 [facility] Basophil percentage 0.60 mg/dL 0.20-1.00 [facility] Basophil percentage 134 mmol/L 136-145 [facility] Basophil percentage 4.7 mmol/L 3.5-5.1 [facility] Basophil percentage 94 mmol/L 98-107 [facility] Basophil percentage 4.5 mmol/L 0.4-2.0 [facility] Basophils (Bld) [#/Vol] 21.0 10*3/uL 4.4-11.0 [facility] Basophils (Bld) [#/Vol] 17.3 10*3/uL 2.0-7.7 [facility] Basophils/100 WBC (Bld) 82.4 % 47-70 [facility] Basophils/100 WBC (Bld) 5.5 % 0-10 [facility] Basophils/100 WBC (Bld) 0.5 % 0-5 [facility] Basophils/100 WBC (Bld) 0.2 % 0-1 [facility] Bilirubin Test strip Ql (U)O rdered By: Eva Marie on 03-16-2023 Bilirubin Ql (U) Negative Negative [facility] Blood manual differential co mment interpretation (narrative result)Ordered By: Eva Marie on 03-16-2023 Manual differential comment Sohan (Bld) [Interp] SCANNED [facility] CO2 (BldV) [Moles/Vol]Ordere d By: Eva Marie on 03-16-2023 CO2 [Moles/Vol] 31 mmol/L 23-33 [facility] Culture, urineOrdered By: Henrique Marie on 03-16-2023 Culture, urine Positive [facility] Determination of erythrocyte mean corpuscular volume (MCV)Ordered By: Eva Marie on 03-16-2023 MCV (RBC) [Entitic vol] 100.0 fL 80-94 [facility] Erythrocyte distribution wid th ratioOrdered By: Eva Marie on 03-16-2023 Erythrocyte distribution width (RBC) [Ratio] 20.1 % 11.6-14.6 [facility] Erythrocyte distribution wid th standard deviationOrdered By: Eva Marie on 03-16-2023 Erythrocyte distribution width (RBC) [Entitic vol] 63.7 fL 35.1-43.9 [facility] Hematocrit Auto (Bld) [Volum e fraction]Ordered By: Eva Marie on 03-16-2023 Hematocrit (Bld) [Volume fraction] 16.6 % 40-54 [facility] Hypochromatic red blood cell detectionOrdered By: Eva Marie on 03-16-2023 Hypochromia Ql (Bld) 1+ [facility] Immature granulocytes/100 WB C Auto (Bld)Ordered By: Eva Marie on 03-16-2023 Immature granulocytes/100 WBC (Bld) 4.100 % 0.0-0.9 [facility] International normalized rat io (INR) calculationOrdered By: Eva Marie on 03-16-2023 INR Coag (PPP) [Relative time] 1.5 {INR} [facility] Ketones Test strip Ql (U)Ord ered By: Eva Marie on 03-16-2023 Ketones Ql (U) Negative Negative [facility] Laboratory - Chemistry and C hemistry - challengeOrdered By: Nadira Ricks on 03-16-2023 CO2 (Dial fld) [Partial pressure] 48.9 mmHg 35-45 [facility] Macrocytes detectionOrdered By: Eva Marie on 03-16-2023 Macrocytes Ql (Bld) 1+ [facility] Measurement, pHOrdered By: Angela Ricks on 03-16-2023 pH (Unsp spec) 7.40 [pH] 7.35-7.45 [facility] Mucus LM Ql (Urine sed)Order ed By: Eva Marie on 01-21-2024 Mucus Ql (Urine sed) 0 SEEN /hpf [facility] Nitrite Test strip Ql (U)Ord ered By: Eva Marie on 03-16-2023 Nitrite Ql (U) Negative Negative [facility] No Panel InformationOrdered By: Nadira Ricks on 03-16-2023 ART [facility] R Radial [facility] Not entered [facility] Cannula [facility] [facility] 4.0 [facility] 30.2 mmol/L 22-26 [facility] No Panel InformationOrdered By: Eva Marie on 03-16-2023 No growth in 5 days. [facility] 0 SEEN /hpf 0-5 [facility] LEONEL [facility] Not entered [facility] Cannula [facility] 4.0 [facility] 30.1 pg 27.0-32.0 [facility] 30.1 g/dL 32-36 [facility] 256 K/mm3 150-450 [facility] 2.1 % 0-5 [facility] 2+ [facility] 18.0 SECONDS 11.7-14.9 [facility] 25 mL/min >60 [facility] 31 mL/min >60 [facility] 29.26 ml/min [facility] 39.8 RATIO 10-20 [facility] 2.4 g/dL 2.2-4.2 [facility] 1.2 RATIO 0.9-2.4 [facility] 37 U/L 39-308 [facility] 435 pg/mL 3.0-78.0 [facility] 61 U/L 45-117 [facility] 19 U/L 16-61 [facility] 30.0 mmol/L 21.0-32.0 [facility] PCO2 venousOrdered By: Rigo Marie on 03-16-2023 CO2 (BldV) [Partial pressure] 49.5 mm[Hg] 41-51 [facility] PO2 venousOrdered By: Eva Marie on 03-16-2023 Oxygen (BldV) [Partial pressure] 35 mm[Hg] 25-40 [facility] Platelet mean volume Edmundo-Ec ker (Bld) [Entitic vol]Ordered By: Eva Marie on 03-16-2023 Platelet mean volume (Bld) [Entitic vol] 12.3 fL 6.2-12.0 [facility] Protein Test strip Ql (U)Ord ered By: Eva Marie on 03-16-2023 Protein Ql (U) 30 mg/dl Negative [facility] RBC Auto (Bld) [#/Vol]Ordere d By: Eva Marie on 03-16-2023 RBC (Bld) [#/Vol] 1.66 10*6/uL 4.6-6.2 [facility] Respiratory measures and Leonel tilator managementOrdered By: Nadira Ricks on 03-16-2023 Oxygen [Partial pressure] in Capillary blood by Transcutaneous O2 monitor 97 mmHG 75-100 [facility] Review by pathologistOrdered By: Eva Marie on 03-16-2023 Pathologist review Sohan (Unsp spec) [Interp] June [facility] Pathologist review Sohan (Unsp spec) [Interp] Reviewed [facility] Serum or plasma acetone yocasta urement (mass/volume)Ordered By: Jordan Driscoll on 03-16-2023 Acetone [Mass/Vol] SMALL NEG [facility] Serum or plasma acetone yocasta urement (mass/volume)Ordered By: Eva Marie on 03-16-2023 Acetone [Mass/Vol] Negative NEG [facility] Serum or plasma calcium yocasta urement (mass/volume)Ordered By: Eva Marie on 03-16-2023 Calcium [Mass/Vol] 8.7 mg/dL 8.5-10.1 [facility] Serum or plasma creatinine m easurement (mass/volume)Ordered By: Eva Marie on 03-16-2023 Creatinine [Mass/Vol] 2.64 mg/dL 0.70-1.30 [facility] Serum or plasma urea nitroge n measurement (mass/volume)Ordered By: Eva Marie on 03-16-2023 Urea nitrogen [Mass/Vol] 105 mg/dL 7-18 [facility] Squamous epithelial cells de tection in urine sediment by light microscopyOrdered By: Eva Marie on 03-16-2023 Epithelial cells.squamous LM Ql (Urine sed) 0-5 SEEN /hpf 0-5 [facility] Stool gastrointestinal hemog lobin detection by immunologic methodOrdered By: Eva Marie on 03-16-2023 Stool gastrointestinal hemoglobin detection by immunologic method Positive [facility] Thin prep Papanicolaou smear with manual screeningOrdered By: Eva Marie on 03-16-2023 Thin prep Papanicolaou smear with manual screening 1+ [facility] Thin prep Papanicolaou smear with manual screening 2.8 g/dL 3.2-5.0 [facility] Thin prep Papanicolaou smear with manual screening 7 U/L 15-37 [facility] Thin prep Papanicolaou smear with manual screening 10 5-15 [facility] Thin prep Papanicolaou smear with manual screening > 500 mg/dL 74-106 [facility] Urine blood detectionOrdered By: Eva Marie on 03-16-2023 RBC Ql (U) 25 /ul Negative [facility] Urine clarityOrdered By: Jailene Marie on 03-16-2023 Clarity (U) Clear Clear [facility] Urine color determinationOrd ered By: Eva Marie on 03-16-2023 Color (U) Yellow Yellow [facility] Urine glucose detectionOrder ed By: Eva Marie on 03-16-2023 Glucose Ql (U) 1000 mg/dl Normal [facility] Urine leukocyte esterase det ection by dipstickOrdered By: Eva Marie on 03-16-2023 Leukocyte esterase Test strip Ql (U) 500 /ul Negative [facility] Urine pHOrdered By: Eva gordon on 03-16-2023 pH (U) 6.5 [pH] 5.0 - 8.0 [facility] Urine sediment bacteria coun t by microscopy (number/high power field)Ordered By: Eva Marie on 03-16-2023 Bacteria LM.HPF (Urine sed) [#/Area] 0 /[HPF] None Seen [facility] Urine specific gravity measu rementOrdered By: Eva Marie on 03-16-2023 Specific gravity (U) [Rel density] 1.010 1.002-1.030 [facility] Urine urobilinogen measureme ntOrdered By: Eva Marie on 03-16-2023 Urobilinogen Ql (U) Normal mg/dl Normal [facility] Venous blood bicarbonate vasquez surementOrdered By: Eva Marie on 03-16-2023 HCO3 (BldCoV) [Moles/Vol] 30 mmol/L 22-26 [facility] Venous blood oxygen saturati on (pure mass fraction)Ordered By: Eva Marie on 03-16-2023 SaO2% (BldV) [Pure mass fraction] 65 % 50-70 [facility] Venous blood pH measurementO rdered By: Eva Marie on 03-16-2023 pH (BldV) 7.39 [pH] 7.32-7.42 [facility] Absolute lymphocyte countOrd ered By: Jordan Ortiz on 03-06-2023 Lymphocytes Auto (Unsp spec) [#/Vol] 0.90 10*3/uL 0.83-4.51 [facility] Basophil percentageOrdered B y: Jordan Ortiz on 03-06-2023 Basophil percentage 199 mg/dL 74-106 [facility] Basophil percentage 2.6 mg/dL 2.5-4.9 [facility] Basophil percentage 142 mmol/L 136-145 [facility] Basophil percentage 4.1 mmol/L 3.5-5.1 [facility] Basophil percentage 103 mmol/L 98-107 [facility] Basophils (Bld) [#/Vol] 10.9 10*3/uL 4.4-11.0 [facility] Basophils (Bld) [#/Vol] 8.7 10*3/uL 2.0-7.7 [facility] Basophils/100 WBC (Bld) 79.8 % 47-70 [facility] Basophils/100 WBC (Bld) 0.3 % 0-5 [facility] Basophils/100 WBC (Bld) 0.1 % 0-1 [facility] Blood erythrocytes count (nu mber/volume)Ordered By: Jordan Ortiz on 03-06-2023 RBC (Bld) [#/Vol] 3.37 10*6/uL 4.6-6.2 [facility] Blood hemoglobin measurement (mass/volume)Ordered By: Jordan Ortiz on 03-06-2023 Hemoglobin (Bld) [Mass/Vol] 10.0 g/dL 13.0-16.5 [facility] Blood lymphocytes/100 leukoc ytesOrdered By: Jordan Ortiz on 03-06-2023 Lymphocytes/100 WBC (Bld) 8.3 % 19-41 [facility] Blood monocytes/100 leukocyt esOrdered By: Jordan Ortiz on 03-06-2023 Monocytes/100 WBC (Bld) 10.8 % 0-10 [facility] Blood platelet mean volumeOr dered By: Jordan Ortiz on 03-06-2023 Platelet mean volume (Bld) [Entitic vol] 11.1 fL 6.2-12.0 [facility] Determination of erythrocyte mean corpuscular volume (MCV)Ordered By: Jordan Ortiz on 03-06-2023 MCV (RBC) [Entitic vol] 92.9 fL 80-94 [facility] Glucose Glucometer (BldC) [M ass/Vol]Ordered By: Jordan Ortiz on 03-06-2023 Glucose [Mass/Vol] 325 mg/dL 74-106 [facility] Hematocrit Auto (Bld) [Volum e fraction]Ordered By: Jordan Ortiz on 03-06-2023 Hematocrit (Bld) [Volume fraction] 31.3 % 40-54 [facility] MCHC Auto (RBC) [Mass/Vol]Or dered By: Jordan Ortiz on 03-06-2023 MCHC (RBC) [Mass/Vol] 31.9 g/dL 32-36 [facility] No Panel InformationOrdered By: Jordan Ortiz on 03-06-2023 29.7 pg 27.0-32.0 [facility] 18.0 % 11.6-14.6 [facility] 62.2 fl 35.1-43.9 [facility] 0.700 % 0.0-0.9 [facility] 0 % 0-5 [facility] 48 mL/min >60 [facility] 58 mL/min >60 [facility] 54.00 ml/min [facility] 35.9 RATIO 10-20 [facility] 34.0 mmol/L 21.0-32.0 [facility] Platelets bldOrdered By: Tino Ortiz on 03-06-2023 Platelets (Bld) [#/Vol] 244 10*3/uL 150-450 [facility] Serum or plasma calcium yocasta urement (mass/volume)Ordered By: Jordan Ortiz on 03-06-2023 Calcium [Mass/Vol] 8.9 mg/dL 8.5-10.1 [facility] Serum or plasma creatinine m easurement (mass/volume)Ordered By: Jordan Ortiz on 03-06-2023 Creatinine [Mass/Vol] 1.53 mg/dL 0.70-1.30 [facility] Serum or plasma urea nitroge n measurement (mass/volume)Ordered By: Jordan Ortiz on 03-06-2023 Urea nitrogen [Mass/Vol] 55 mg/dL 7-18 [facility] Thin prep Papanicolaou smear with manual screeningOrdered By: Jordan Ortiz on 03-06-2023 Thin prep Papanicolaou smear with manual screening 5 5-15 [facility] Basophil percentageOrdered B y: Jordan Ortiz on 03-05-2023 Basophil percentage 6.0 g/dL 6.4-8.2 [facility] Basophil percentage 0.50 mg/dL 0.20-1.00 [facility] No Panel InformationOrdered By: Jordan Ortiz on 03-05-2023 2.9 g/dL 2.2-4.2 [facility] 66 U/L 45-117 [facility] 19 U/L 16-61 [facility] 1.9 mg/dL 1.6-2.6 [facility] Serum or plasma albumin yocasta urement (mass/volume)Ordered By: Jordan Ortiz on 03-05-2023 Albumin [Mass/Vol] 3.1 g/dL 3.2-5.0 [facility] Serum or plasma albumin/glob ulin mass ratioOrdered By: Jordan Ortiz on 03-05-2023 Albumin/Globulin [Mass ratio] 1.1 {ratio} 0.9-2.4 [facility] Thin prep Papanicolaou smear with manual screeningOrdered By: Jordan Ortiz on 03-05-2023 Thin prep Papanicolaou smear with manual screening 9 U/L 15-37 [facility] Blood manual differential co mment interpretation (narrative result)Ordered By: Jordan Ortiz on 03-04-2023 Manual differential comment Sohan (Bld) [Interp] SCANNED [facility] No Panel InformationOrdered By: Jordan Ortiz on 03-03-2023 2+ [facility] 593.7 pg/mL 0-100 [facility] Macrocytes detectionOrdered By: Jordan Ortiz on 03-02-2023 Macrocytes Ql (Bld) 1+ [facility] Thin prep Papanicolaou smear with manual screeningOrdered By: Jordan Ortiz on 03-02-2023 Thin prep Papanicolaou smear with manual screening 1+ [facility] Blood platelet adequacy dete ction by light microscopyOrdered By: Mable Pritchard on 03-01-2023 Platelets LM Ql (Bld) ADEQUATE ADEQ [facility] Hypochromatic red blood cell detectionOrdered By: Mable Pritchard on 03-01-2023 Hypochromia Ql (Bld) 1+ [facility] Lower GI hemoglobin IA Ql (S tl)Ordered By: Mable Pritchard on 03-01-2023 Stool gastrointestinal hemoglobin detection by immunologic method Positive [facility] Stool gastrointestinal hemoglobin detection by immunologic method Positive [facility] No Panel InformationOrdered By: Mable Pritchard on 03-01-2023 551 pg/mL 211-911 [facility] Review by pathologistOrdered By: Mable Pritchard on 03-01-2023 Pathologist review Sohan (Unsp spec) [Interp] Reviewed [facility] Serum or plasma ferritin vasquez surement (mass/volume)Ordered By: Mable Pritchard on 03-01-2023 Ferritin [Mass/Vol] 171 ng/mL 26-388 [facility] Serum or plasma folate measu rement (mass/volume)Ordered By: Mable Pritchard on 03-01-2023 Folate [Mass/Vol] 4.90 ng/mL 3.1-55.4 [facility] Absolute lymphocyte countOrd ered By: Dwain Nowak on 02-28-2023 Lymphocytes Auto (Unsp spec) [#/Vol] 0.91 10*3/uL 0.83-4.51 [facility] Basophil percentageOrdered B y: Dwain Nowak on 02-28-2023 Basophils/100 WBC (Bld) 0.6 % 0-1 [facility] Chloride [Moles/Vol] 112 mmol/L 98-107 [facility] Eosinophils/100 WBC (Bld) 3.9 % 0-5 [facility] Glucose [Mass/Vol] 181 mg/dL 74-106 [facility] Comment on above: Fasting Glucose resu lt greater than or equal to 126 mg/dL suggests DIABETES MELLITUS per A.D.A. criteria. Neutrophils (Bld) [#/Vol] 5.8 10*3/uL 2.0-7.7 [facility] Neutrophils/100 WBC (Bld) 74.3 % 47-70 [facility] Potassium [Moles/Vol] 5.6 mmol/L 3.5-5.1 [facility] Sodium [Moles/Vol] 141 mmol/L 136-145 [facility] WBC (Bld) [#/Vol] 7.8 10*3/uL 4.4-11.0 [facility] Blood erythrocytes count (nu mber/volume)Ordered By: Dwain Nowak on 02-28-2023 RBC (Bld) [#/Vol] 2.33 10*6/uL 4.6-6.2 [facility] Blood hemoglobin measurement (mass/volume)Ordered By: Dwain Nowak on 02-28-2023 Hemoglobin (Bld) [Mass/Vol] 6.7 g/dL 13.0-16.5 [facility] Blood lymphocytes/100 leukoc ytesOrdered By: Dwain Nowak on 02-28-2023 Lymphocytes/100 WBC (Bld) 11.7 % 19-41 [facility] Blood monocytes/100 leukocyt esOrdered By: Dwain Nowak on 02-28-2023 Monocytes/100 WBC (Bld) 8.6 % 0-10 [facility] Blood platelet mean volumeOr dered By: Dwain Nowak on 02-28-2023 Platelet mean volume (Bld) [Entitic vol] 10.7 fL 6.2-12.0 [facility] Determination of erythrocyte mean corpuscular volume (MCV)Ordered By: Dwain Nowak on 02-28-2023 MCV (RBC) [Entitic vol] 100.9 fL 80-94 [facility] Hematocrit Auto (Bld) [Volum e fraction]Ordered By: Dwain Nowak on 02-28-2023 Hematocrit (Bld) [Volume fraction] 23.5 % 40-54 [facility] Hypochromatic red blood cell detectionOrdered By: Dwain Nowak on 02-28-2023 Hypochromia Ql (Bld) 1+ [facility] Iron measurement (mass/mass) Ordered By: Mable Pritchard on 02-28-2023 Iron (Unsp spec) [Mass/Mass] 33 ug/dL 65-175 [facility] Laboratory - Chemistry and C hemistry - challengeOrdered By: Dwain Nowak on 02-28-2023 CO2 [Moles/Vol] 26.0 mmol/L 21.0-32.0 [facility] Urea nitrogen/Creatinine [Mass ratio] 20.0 mg/mg 10-20 [facility] Laboratory - Hematology and Cell countsOrdered By: Dwain Nowak on 02-28-2023 Anisocytosis Ql (Bld) 2+ [facility] Erythrocyte distribution width (RBC) [Entitic vol] 74.5 fL 35.1-43.9 [facility] Erythrocyte distribution width (RBC) [Ratio] 19.9 % 11.6-14.6 [facility] Immature granulocytes/100 WBC (Bld) 0.900 % 0.0-0.9 [facility] Comment on above: IG% - Immature Granu locytes (promyelocytes, myelocytes and metamyelocytes) > 1% indicates that a LEFT SHIFT is Present. MCH (RBC) [Entitic mass] 28.8 pg 27.0-32.0 [facility] Nucleated RBC/100 WBC (Bld) [Ratio] 0.3 % 0-5 [facility] Laboratory - Microbiology an d Antimicrobial susceptibilityOrdered By: Dwain Nowak on 02-28-2023 SARS-CoV-2 (COVID-19) RNA JUSTIN+probe Ql (Unsp spec) [facility] MCHC Auto (RBC) [Mass/Vol]Or dered By: Dwain Nowak on 02-28-2023 MCHC (RBC) [Mass/Vol] 28.5 g/dL 32-36 [facility] No Panel InformationOrdered By: Dwain Nowak on 02-28-2023 Estimated GFR (MDRD) Amer 49 mL/min >60 [facility] Comment on above: GFR Calc Estimated GFR (MDRD) Non-Af Amer 41 mL/min >60 [facility] Comment on above: Non- GFR Calc Troponin I High Sensitivity 18 pg/mL 3.0-78.0 [facility] Comment on above: Please Note: New Nicole t Units and Gender Specific Reference Ranges. For more information see Policy Stat Procedure [place] High Sensitivity Troponin (TNIH) and attachments. 18 pg/mL 3.0-78.0 [facility] No Panel InformationOrdered By: Mable Pritchard on 02-28-2023 236 ug/dL 250-450 [facility] Platelets bldOrdered By: Dean Nowak on 02-28-2023 Platelets (Bld) [#/Vol] 278 10*3/uL 150-450 [facility] Respiratory pathogens detect ion panel by molecular detection methodOrdered By: Mable Pritchard on 02-28-2023 Respiratory pathogens DNA and RNA panel JUSTIN+probe (Resp) [facility] Respiratory pathogens DNA and RNA panel JUSTIN+probe (Resp) [facility] Serum or plasma calcium yocasta urement (mass/volume)Ordered By: Dwain Nowak on 02-28-2023 Calcium [Mass/Vol] 8.5 mg/dL 8.5-10.1 [facility] Serum or plasma creatinine m easurement (mass/volume)Ordered By: Dwain Nowak on 02-28-2023 Creatinine [Mass/Vol] 1.75 mg/dL 0.70-1.30 [facility] Comment on above: The validity of the calculated GFR & GFRAA in patients over 70 years has not been determined. Clinical correlation is essential. Serum or plasma iron saturat ion measurement (mass fraction)Ordered By: Mable Pritchard on 02-28-2023 Iron saturation [Mass fraction] 14.0 % 15.0-55.0 [facility] Serum or plasma urea nitroge n measurement (mass/volume)Ordered By: Dwain Nowak on 02-28-2023 Urea nitrogen [Mass/Vol] 35 mg/dL 7-18 [facility] Thin prep Papanicolaou smear with manual screeningOrdered By: Dwain Nowak on 02-28-2023 Thin prep Papanicolaou smear with manual screening 3 5-15 [facility] Stool gastrointestinal hemog lobin detection by immunologic methodOrdered By: Tobi Zapata on 01-30-2023 Lower GI hemoglobin IA Ql (Stl) [facility] Lower GI hemoglobin IA Ql (Stl) [facility] Absolute lymphocyte countOrd ered By: Tobi Zapata on 01-21-2023 Lymphocytes Auto (Unsp spec) [#/Vol] 2.12 10*3/uL 0.83-4.51 [facility] Basophil percentageOrdered B y: Tobi Zapata on 01-21-2023 Basophil percentage 401 mg/dL 74-106 [facility] Basophil percentage 6.7 g/dL 6.4-8.2 [facility] Basophil percentage 0.30 mg/dL 0.20-1.00 [facility] Basophil percentage 137 mmol/L 136-145 [facility] Basophil percentage 4.1 mmol/L 3.5-5.1 [facility] Basophil percentage 98 mmol/L 98-107 [facility] Basophil percentage 156 U/L 87-241 [facility] Basophils (Bld) [#/Vol] 11.0 10*3/uL 4.4-11.0 [facility] Basophils (Bld) [#/Vol] 7.5 10*3/uL 2.0-7.7 [facility] Basophils/100 WBC (Bld) 0.3 % 0-1 [facility] Basophils/100 WBC (Bld) 68.2 % 47-70 [facility] Basophils/100 WBC (Bld) 1.4 % 0-5 [facility] Bilirubin [Mass/Vol] 0.30 mg/dL 0.20-1.00 [facility] Comment on above: For patients on eltr ombopag therapy, use of Dimension [place] TBIL is not recommended. Chloride [Moles/Vol] 98 mmol/L 98-107 [facility] Eosinophils/100 WBC (Bld) 1.4 % 0-5 [facility] Glucose [Mass/Vol] 401 mg/dL 74-106 [facility] Comment on above: Glucose result great er than or equal to 200 mg/dLsuggests DIABETES MELLITUS per A.D.A. criteria. LDH [Catalytic activity/Vol] 156 U/L 87-241 [facility] Neutrophils (Bld) [#/Vol] 7.5 10*3/uL 2.0-7.7 [facility] Neutrophils/100 WBC (Bld) 68.2 % 47-70 [facility] Potassium [Moles/Vol] 4.1 mmol/L 3.5-5.1 [facility] Protein [Mass/Vol] 6.7 g/dL 6.4-8.2 [facility] Sodium [Moles/Vol] 137 mmol/L 136-145 [facility] WBC (Bld) [#/Vol] 11.0 10*3/uL 4.4-11.0 [facility] Blood erythrocytes count (nu mber/volume)Ordered By: Tobi Zapata on 01-21-2023 RBC (Bld) [#/Vol] 2.76 10*6/uL 4.6-6.2 [facility] Blood hemoglobin measurement (mass/volume)Ordered By: Tobi Zaapta on 01-21-2023 Hemoglobin (Bld) [Mass/Vol] 7.4 g/dL 13.0-16.5 [facility] Blood lymphocytes/100 leukoc ytesOrdered By: Tobi Zapata on 01-21-2023 Lymphocytes/100 WBC (Bld) 19.3 % 19-41 [facility] Blood monocytes/100 leukocyt esOrdered By: Tobi Zapata on 01-21-2023 Monocytes/100 WBC (Bld) 9.4 % 0-10 [facility] Blood platelet mean volumeOr dered By: Tobi Zapata on 01-21-2023 Platelet mean volume (Bld) [Entitic vol] 10.9 fL 6.2-12.0 [facility] Determination of erythrocyte mean corpuscular volume (MCV)Ordered By: Tobi Zapata on 01-21-2023 MCV (RBC) [Entitic vol] 88.4 fL 80-94 [facility] Hematocrit Auto (Bld) [Volum e fraction]Ordered By: Tobi Zapata on 01-21-2023 Hematocrit (Bld) [Volume fraction] 24.4 % 40-54 [facility] Iron measurement (mass/mass) Ordered By: Tobi Zapata on 01-21-2023 Iron (Unsp spec) [Mass/Mass] 29 ug/dL 65-175 [facility] Laboratory - Chemistry and C hemistry - challengeOrdered By: Tobi Zapata on 01-21-2023 ALP [Catalytic activity/Vol] 75 U/L 45-117 [facility] ALT [Catalytic activity/Vol] 16 U/L 16-61 [facility] CO2 [Moles/Vol] 30.0 mmol/L 21.0-32.0 [facility] Globulin (S) [Mass/Vol] 3.3 g/dL 2.2-4.2 [facility] Urea nitrogen/Creatinine [Mass ratio] 29.5 mg/mg 10-20 [facility] Laboratory - Hematology and Cell countsOrdered By: Tobi Zapata on 01-21-2023 Erythrocyte distribution width (RBC) [Entitic vol] 50.6 fL 35.1-43.9 [facility] Erythrocyte distribution width (RBC) [Ratio] 15.9 % 11.6-14.6 [facility] Immature granulocytes/100 WBC (Bld) 1.400 % 0.0-0.9 [facility] Comment on above: IG% - Immature Granu locytes (promyelocytes, myelocytes and metamyelocytes) > 1% indicates that a LEFT SHIFT is Present. MCH (RBC) [Entitic mass] 26.8 pg 27.0-32.0 [facility] Nucleated RBC/100 WBC (Bld) [Ratio] 0.2 % 0-5 [facility] MCHC Auto (RBC) [Mass/Vol]Or dered By: Tobi Zapata on 01-21-2023 MCHC (RBC) [Mass/Vol] 30.3 g/dL 32-36 [facility] No Panel InformationOrdered By: Tobi Zapata on 01-21-2023 Estimated Creatinine Clearance Calc 31.85 ml/min [facility] Estimated GFR (MDRD) Amer 38 mL/min >60 [facility] Comment on above: GFR Calc Estimated GFR (MDRD) Non-Af Amer 31 mL/min >60 [facility] Comment on above: Non- GFR Calc Total Iron Binding Capacity 325 ug/dL 250-450 [facility] 26.8 pg 27.0-32.0 [facility] 15.9 % 11.6-14.6 [facility] 50.6 fl 35.1-43.9 [facility] 1.400 % 0.0-0.9 [facility] 0.2 % 0-5 [facility] 31 mL/min >60 [facility] 38 mL/min >60 [facility] 31.85 ml/min [facility] 29.5 RATIO 10-20 [facility] 3.3 g/dL 2.2-4.2 [facility] 75 U/L 45-117 [facility] 16 U/L 16-61 [facility] 30.0 mmol/L 21.0-32.0 [facility] 325 ug/dL 250-450 [facility] Platelets bldOrdered By: Mikael Zapata on 01-21-2023 Platelets (Bld) [#/Vol] 446 10*3/uL 150-450 [facility] Serum or plasma C reactive p rotein measurement (mass/volume)Ordered By: Tobi Zapata on 01-21-2023 CRP [Mass/Vol] 5.97 mg/L 0.0-3.0 [facility] Comment on above: C-Reactive Protein ( CRP) provides useful information for thediagnosis, therapy and monitoring of inflammatory processesand associated diseases. For the evaluation of Relative Riskfor Cardiovascular Disease, a High Sensitivity CRP (HSCRP)should be ordered. Serum or plasma albumin yocasta urement (mass/volume)Ordered By: Tobi Zapata on 01-21-2023 Albumin [Mass/Vol] 3.4 g/dL 3.2-5.0 [facility] Serum or plasma albumin/glob ulin mass ratioOrdered By: Tobi Zapata on 01-21-2023 Albumin/Globulin [Mass ratio] 1.0 {ratio} 0.9-2.4 [facility] Serum or plasma calcium yocasta urement (mass/volume)Ordered By: Tobi Zapata on 01-21-2023 Calcium [Mass/Vol] 8.9 mg/dL 8.5-10.1 [facility] Serum or plasma creatinine m easurement (mass/volume)Ordered By: Tobi Zapata on 01-21-2023 Creatinine [Mass/Vol] 2.20 mg/dL 0.70-1.30 [facility] Comment on above: The validity of the calculated GFR & GFRAA in patients over 70 years has not been determined. Clinical correlation is essential. Serum or plasma ferritin vasquez surement (mass/volume)Ordered By: Tobi Zapata on 01-21-2023 Ferritin [Mass/Vol] 48 ng/mL 26-388 [facility] Serum or plasma iron saturat ion measurement (mass fraction)Ordered By: Tobi Zapata on 01-21-2023 Iron saturation [Mass fraction] 8.9 % 15.0-55.0 [facility] Serum or plasma urea nitroge n measurement (mass/volume)Ordered By: Tobi Zapata on 01-21-2023 Urea nitrogen [Mass/Vol] 65 mg/dL 7-18 [facility] Thin prep Papanicolaou smear with manual screeningOrdered By: Tobi Zapata on 01-21-2023 Thin prep Papanicolaou smear with manual screening < 3 U/L 15-37 [facility] Thin prep Papanicolaou smear with manual screening 9 5-15 [facility] Laboratory - Chemistry and C hemistry - challengeOrdered By: Tobi Zapata on 11-26-2022 Cobalamin (Vitamin B12) [Mass/Vol] 924 pg/mL 211-911 [facility] Laboratory - Chemistry and C hemistry - challengeOrdered By: Donna Will on 11-26-2022 Magnesium [Mass/Vol] 1.9 mg/dL 1.6-2.6 [facility] No Panel InformationOrdered By: Donna Will on 11-26-2022 1.9 mg/dL 1.6-2.6 [facility] No Panel InformationOrdered By: Tobi Zapata on 11-26-2022 924 pg/mL 211-911 [facility] Serum or plasma folate measu rement (mass/volume)Ordered By: Tobi Zapata on 11-26-2022 Folate [Mass/Vol] 5.30 ng/mL 3.1-55.4 [facility] Absolute lymphocyte countOrd ered By: Jordan Ortiz on 11-17-2022 Lymphocytes Auto (Unsp spec) [#/Vol] 1.51 10*3/uL 0.83-4.51 [facility] Basophil percentageOrdered B y: Jordan Ortiz on 11-17-2022 Basophil percentage 3.8 mg/dL 2.5-4.9 [facility] Basophil percentage 143 mg/dL 74-106 [facility] Basophil percentage 139 mmol/L 136-145 [facility] Basophil percentage 4.2 mmol/L 3.5-5.1 [facility] Basophil percentage 104 mmol/L 98-107 [facility] Basophils (Bld) [#/Vol] 7.8 10*3/uL 4.4-11.0 [facility] Basophils (Bld) [#/Vol] 4.7 10*3/uL 2.0-7.7 [facility] Basophils/100 WBC (Bld) 0.6 % 0-1 [facility] Basophils/100 WBC (Bld) 60.4 % 47-70 [facility] Basophils/100 WBC (Bld) 6.6 % 0-5 [facility] Chloride [Moles/Vol] 104 mmol/L 98-107 [facility] Eosinophils/100 WBC (Bld) 6.6 % 0-5 [facility] Glucose [Mass/Vol] 143 mg/dL 74-106 [facility] Comment on above: Fasting Glucose resu lt greater than or equal to 126 mg/dL suggests DIABETES MELLITUS per A.D.A. criteria. Neutrophils (Bld) [#/Vol] 4.7 10*3/uL 2.0-7.7 [facility] Neutrophils/100 WBC (Bld) 60.4 % 47-70 [facility] Potassium [Moles/Vol] 4.2 mmol/L 3.5-5.1 [facility] Sodium [Moles/Vol] 139 mmol/L 136-145 [facility] WBC (Bld) [#/Vol] 7.8 10*3/uL 4.4-11.0 [facility] Blood erythrocytes count (nu mber/volume)Ordered By: Jordan Ortiz on 11-17-2022 RBC (Bld) [#/Vol] 2.86 10*6/uL 4.6-6.2 [facility] Blood hemoglobin measurement (mass/volume)Ordered By: Jordan Ortiz on 11-17-2022 Hemoglobin (Bld) [Mass/Vol] 8.1 g/dL 13.0-16.5 [facility] Blood lymphocytes/100 leukoc ytesOrdered By: Jordan Ortiz on 11-17-2022 Lymphocytes/100 WBC (Bld) 19.4 % 19-41 [facility] Blood monocytes/100 leukocyt esOrdered By: Jordan Ortiz on 11-17-2022 Monocytes/100 WBC (Bld) 12.0 % 0-10 [facility] Blood platelet mean volumeOr dered By: Jordan Ortiz on 11-17-2022 Platelet mean volume (Bld) [Entitic vol] 10.9 fL 6.2-12.0 [facility] Determination of erythrocyte mean corpuscular volume (MCV)Ordered By: Jordan Ortiz on 11-17-2022 MCV (RBC) [Entitic vol] 94.1 fL 80-94 [facility] Glucose Glucometer (dC) [M ass/Vol]Ordered By: Jordan Ortiz on 11-17-2022 Glucose [Mass/Vol] 217 mg/dL 74-106 [facility] Comment on above: MANAGEMENT OF PATIEN T CARE PER NURSING PROTOCOL Hematocrit Auto (Bld) [Volum e fraction]Ordered By: Jordan Ortiz on 11-17-2022 Hematocrit (Bld) [Volume fraction] 26.9 % 40-54 [facility] Laboratory - Chemistry and C hemistry - challengeOrdered By: Jordan Ortiz on 11-17-2022 CO2 [Moles/Vol] 33.0 mmol/L 21.0-32.0 [facility] Magnesium [Mass/Vol] 2.1 mg/dL 1.6-2.6 [facility] Urea nitrogen/Creatinine [Mass ratio] 15.8 mg/mg 10-20 [facility] Laboratory - Hematology and Cell countsOrdered By: Jordan Ortiz on 11-17-2022 Erythrocyte distribution width (RBC) [Entitic vol] 53.9 fL 35.1-43.9 [facility] Erythrocyte distribution width (RBC) [Ratio] 15.8 % 11.6-14.6 [facility] Immature granulocytes/100 WBC (Bld) 1.000 % 0.0-0.9 [facility] Comment on above: IG% - Immature Granu locytes (promyelocytes, myelocytes and metamyelocytes) > 1% indicates that a LEFT SHIFT is Present. MCH (RBC) [Entitic mass] 28.3 pg 27.0-32.0 [facility] Nucleated RBC/100 WBC (Bld) [Ratio] 0.3 % 0-5 [facility] MCHC Auto (RBC) [Mass/Vol]Or dered By: Jordan Ortiz on 11-17-2022 MCHC (RBC) [Mass/Vol] 30.1 g/dL 32-36 [facility] No Panel InformationOrdered By: Jordan Ortiz on 11-17-2022 Estimated Creatinine Clearance Calc 42.47 ml/min [facility] Estimated GFR (MDRD) Amer 53 mL/min >60 [facility] Comment on above: GFR Calc Estimated GFR (MDRD) Non-Af Amer 44 mL/min >60 [facility] Comment on above: Non- GFR Calc 28.3 pg 27.0-32.0 [facility] 15.8 % 11.6-14.6 [facility] 53.9 fl 35.1-43.9 [facility] 1.000 % 0.0-0.9 [facility] 0.3 % 0-5 [facility] 44 mL/min >60 [facility] 53 mL/min >60 [facility] 42.47 ml/min [facility] 15.8 RATIO 10-20 [facility] 2.1 mg/dL 1.6-2.6 [facility] 33.0 mmol/L 21.0-32.0 [facility] Platelets bldOrdered By: Tino Ortiz on 11-17-2022 Platelets (Bld) [#/Vol] 240 10*3/uL 150-450 [facility] Serum or plasma calcium yocasta urement (mass/volume)Ordered By: Jordan Ortiz on 11-17-2022 Calcium [Mass/Vol] 8.2 mg/dL 8.5-10.1 [facility] Serum or plasma creatinine m easurement (mass/volume)Ordered By: Jordan Ortiz on 11-17-2022 Creatinine [Mass/Vol] 1.65 mg/dL 0.70-1.30 [facility] Comment on above: The validity of the calculated GFR & GFRAA in patients over 70 years has not been determined. Clinical correlation is essential. Serum or plasma urea nitroge n measurement (mass/volume)Ordered By: Jordan Ortiz on 11-17-2022 Urea nitrogen [Mass/Vol] 26 mg/dL 7-18 [facility] Thin prep Papanicolaou smear with manual screeningOrdered By: Jordan Ortiz on 11-17-2022 Thin prep Papanicolaou smear with manual screening 2 5-15 [facility] Absolute lymphocyte countOrd ered By: Jj Garcia on 11-15-2022 Lymphocytes Auto (Unsp spec) [#/Vol] 1.31 10*3/uL 0.83-4.51 [facility] Basophil percentageOrdered B y: Jj Garcia on 11-15-2022 Basophils/100 WBC (Bld) 0.8 % 0-1 [facility] Chloride [Moles/Vol] 107 mmol/L 98-107 [facility] Eosinophils/100 WBC (Bld) 6.0 % 0-5 [facility] Glucose [Mass/Vol] 221 mg/dL 74-106 [facility] Comment on above: Glucose result great er than or equal to 200 mg/dLsuggests DIABETES MELLITUS per A.D.A. criteria. Neutrophils (Bld) [#/Vol] 4.8 10*3/uL 2.0-7.7 [facility] Neutrophils/100 WBC (Bld) 65.2 % 47-70 [facility] Potassium [Moles/Vol] 4.7 mmol/L 3.5-5.1 [facility] Sodium [Moles/Vol] 139 mmol/L 136-145 [facility] WBC (Bld) [#/Vol] 7.3 10*3/uL 4.4-11.0 [facility] Blood erythrocytes count (nu mber/volume)Ordered By: Jj Garcia on 11-15-2022 RBC (Bld) [#/Vol] 2.77 10*6/uL 4.6-6.2 [facility] Blood hemoglobin measurement (mass/volume)Ordered By: Jj Garcia on 11-15-2022 Hemoglobin (Bld) [Mass/Vol] 7.9 g/dL 13.0-16.5 [facility] Blood lymphocytes/100 leukoc ytesOrdered By: Jj Garcia on 11-15-2022 Lymphocytes/100 WBC (Bld) 17.9 % 19-41 [facility] Blood monocytes/100 leukocyt esOrdered By: Jjdaisy Garcia on 11-15-2022 Monocytes/100 WBC (Bld) 8.9 % 0-10 [facility] Blood platelet mean volumeOr dered By: Jj Garcia on 11-15-2022 Platelet mean volume (Bld) [Entitic vol] 10.9 fL 6.2-12.0 [facility] Determination of erythrocyte mean corpuscular volume (MCV)Ordered By: Jj Garcia on 11-15-2022 MCV (RBC) [Entitic vol] 96.4 fL 80-94 [facility] Hematocrit Auto (Bld) [Volum e fraction]Ordered By: Jjdaisy Garcia on 11-15-2022 Hematocrit (Bld) [Volume fraction] 26.7 % 40-54 [facility] Iron measurement (mass/mass) Ordered By: Loki Lozoya on 11-15-2022 Iron (Unsp spec) [Mass/Mass] 51 ug/dL 65-175 [facility] Laboratory - Chemistry and C hemistry - challengeOrdered By: Jjdaisy Garcia on 11-15-2022 CO2 [Moles/Vol] 33.0 mmol/L 21.0-32.0 [facility] Natriuretic peptide B (Bld) [Mass/Vol] 298.1 pg/mL 0-100 [facility] Urea nitrogen/Creatinine [Mass ratio] 13.6 mg/mg 10-20 [facility] Laboratory - Hematology and Cell countsOrdered By: Jjdaisy Garcia on 11-15-2022 Erythrocyte distribution width (RBC) [Entitic vol] 54.0 fL 35.1-43.9 [facility] Erythrocyte distribution width (RBC) [Ratio] 15.8 % 11.6-14.6 [facility] Immature granulocytes/100 WBC (Bld) 1.200 % 0.0-0.9 [facility] Comment on above: IG% - Immature Granu locytes (promyelocytes, myelocytes and metamyelocytes) > 1% indicates that a LEFT SHIFT is Present. MCH (RBC) [Entitic mass] 28.5 pg 27.0-32.0 [facility] Nucleated RBC/100 WBC (Bld) [Ratio] 0 % 0-5 [facility] Auto (RBC) [Mass/Vol]Or dered By: Jj Garcia on 11-15-2022 MCHC (RBC) [Mass/Vol] 29.6 g/dL 32-36 [facility] No Panel InformationOrdered By: Loki Lozoya on 11-15-2022 Total Iron Binding Capacity 243 ug/dL 250-450 [facility] Troponin I High Sensitivity 15 pg/mL 3.0-78.0 [facility] Comment on above: Please Note: New Nicole t Units and Gender Specific Reference Ranges. For more information see Policy Stat Procedure [place] High Sensitivity Troponin (TNIH) and attachments. 15 pg/mL 3.0-78.0 [facility] 243 ug/dL 250-450 [facility] No Panel InformationOrdered By: Jj Garcia on 11-15-2022 Estimated Creatinine Clearance Calc 31.52 ml/min [facility] Estimated GFR (MDRD) Amer 57 mL/min >60 [facility] Comment on above: GFR Calc Estimated GFR (MDRD) Non-Af Amer 47 mL/min >60 [facility] Comment on above: Non- GFR Calc Troponin I High Sensitivity 17 pg/mL 3.0-78.0 [facility] Comment on above: Please Note: New Nicole t Units and Gender Specific Reference Ranges. For more information see Policy Stat Procedure [place] High Sensitivity Troponin (TNIH) and attachments. 298.1 pg/mL 0-100 [facility] Platelets bldOrdered By: Jj Garcia on 11-15-2022 Platelets (Bld) [#/Vol] 274 10*3/uL 150-450 [facility] Serum or plasma calcium yocasta urement (mass/volume)Ordered By: Jj Garcia on 11-15-2022 Calcium [Mass/Vol] 8.5 mg/dL 8.5-10.1 [facility] Serum or plasma creatinine m easurement (mass/volume)Ordered By: Jj Garcia on 11-15-2022 Creatinine [Mass/Vol] 1.54 mg/dL 0.70-1.30 [facility] Comment on above: The validity of the calculated GFR & GFRAA in patients over 70 years has not been determined. Clinical correlation is essential. Serum or plasma ferritin vasquez surement (mass/volume)Ordered By: Loki Lozoya on 11-15-2022 Ferritin [Mass/Vol] 111 ng/mL 26-388 [facility] Serum or plasma iron saturat ion measurement (mass fraction)Ordered By: Loki Lozoya on 11-15-2022 Iron saturation [Mass fraction] 21.0 % 15.0-55.0 [facility] Serum or plasma urea nitroge n measurement (mass/volume)Ordered By: Jj Garica on 11-15-2022 Urea nitrogen [Mass/Vol] 21 mg/dL 7-18 [facility] Thin prep Papanicolaou smear with manual screeningOrdered By: Jj Garcia on 11-15-2022 Thin prep Papanicolaou smear with manual screening -1 5-15 [facility] Whole blood hemoglobin A1c/t otal hemoglobin ratio (mass fraction)Ordered By: Loki Lozoya on 11-15-2022 HbA1c (Bld) [Mass fraction] 8.6 % 3.8-5.6 [facility] Comment on above: Normal < 5.7 % Predi abetic 5.7 - 6.4 % Diabetic >or= 6.5 % Please note range changes. Absolute lymphocyte countOrd ered By: Martha Dodson on 10-29-2022 Lymphocytes Auto (Unsp spec) [#/Vol] 1.37 10*3/uL 0.83-4.51 [facility] Basophil percentageOrdered B y: Martha Dodson on 10-29-2022 Basophils/100 WBC (Bld) 0.6 % 0-1 [facility] Bilirubin [Mass/Vol] 0.40 mg/dL 0.20-1.00 [facility] Comment on above: For patients on eltr ombopag therapy, use of Dimension [place] TBIL is not recommended. Chloride [Moles/Vol] 107 mmol/L 98-107 [facility] Eosinophils/100 WBC (Bld) 4.9 % 0-5 [facility] Glucose [Mass/Vol] 204 mg/dL 74-106 [facility] Comment on above: Glucose result great er than or equal to 200 mg/dLsuggests DIABETES MELLITUS per A.D.A. criteria. LDH [Catalytic activity/Vol] 173 U/L 87-241 [facility] Neutrophils (Bld) [#/Vol] 4.5 10*3/uL 2.0-7.7 [facility] Neutrophils/100 WBC (Bld) 64.4 % 47-70 [facility] Potassium [Moles/Vol] 3.8 mmol/L 3.5-5.1 [facility] Protein [Mass/Vol] 6.4 g/dL 6.4-8.2 [facility] Sodium [Moles/Vol] 140 mmol/L 136-145 [facility] WBC (Bld) [#/Vol] 6.9 10*3/uL 4.4-11.0 [facility] Blood erythrocytes count (nu mber/volume)Ordered By: Martha Dodson on 10-29-2022 RBC (Bld) [#/Vol] 2.80 10*6/uL 4.6-6.2 [facility] Blood hemoglobin measurement (mass/volume)Ordered By: Martha Dodson on 10-29-2022 Hemoglobin (Bld) [Mass/Vol] 7.9 g/dL 13.0-16.5 [facility] Blood lymphocytes/100 leukoc ytesOrdered By: Martha Dodson on 10-29-2022 Lymphocytes/100 WBC (Bld) 19.7 % 19-41 [facility] Blood monocytes/100 leukocyt esOrdered By: Martha Dodson on 10-29-2022 Monocytes/100 WBC (Bld) 9.4 % 0-10 [facility] Blood platelet mean volumeOr dered By: Martha Dodson on 10-29-2022 Platelet mean volume (Bld) [Entitic vol] 10.2 fL 6.2-12.0 [facility] Determination of erythrocyte mean corpuscular volume (MCV)Ordered By: Martha Dodson on 10-29-2022 MCV (RBC) [Entitic vol] 94.6 fL 80-94 [facility] Hematocrit Auto (Bld) [Volum e fraction]Ordered By: Martha Dodson on 10-29-2022 Hematocrit (Bld) [Volume fraction] 26.5 % 40-54 [facility] Laboratory - Chemistry and C hemistry - challengeOrdered By: Martha Dodson on 10-29-2022 ALP [Catalytic activity/Vol] 76 U/L 45-117 [facility] ALT [Catalytic activity/Vol] 13 U/L 16-61 [facility] CO2 [Moles/Vol] 28.0 mmol/L 21.0-32.0 [facility] Globulin (S) [Mass/Vol] 3.1 g/dL 2.2-4.2 [facility] Urea nitrogen/Creatinine [Mass ratio] 15.4 mg/mg 10-20 [facility] Laboratory - Hematology and Cell countsOrdered By: Martha Dodson on 10-29-2022 Erythrocyte distribution width (RBC) [Entitic vol] 49.1 fL 35.1-43.9 [facility] Erythrocyte distribution width (RBC) [Ratio] 14.2 % 11.6-14.6 [facility] Immature granulocytes/100 WBC (Bld) 1.000 % 0.0-0.9 [facility] Comment on above: IG% - Immature Granu locytes (promyelocytes, myelocytes and metamyelocytes) > 1% indicates that a LEFT SHIFT is Present. MCH (RBC) [Entitic mass] 28.2 pg 27.0-32.0 [facility] Nucleated RBC/100 WBC (Bld) [Ratio] 0 % 0-5 [facility] MCHC Auto (RBC) [Mass/Vol]Or dered By: Martha Dodson on 10-29-2022 MCHC (RBC) [Mass/Vol] 29.8 g/dL 32-36 [facility] No Panel InformationOrdered By: Martha Dodson on 10-29-2022 Estimated Creatinine Clearance Calc 47.03 ml/min [facility] Estimated GFR (MDRD) Amer 59 mL/min >60 [facility] Comment on above: GFR Calc Estimated GFR (MDRD) Non-Af Amer 49 mL/min >60 [facility] Comment on above: Non- GFR Calc Platelets bldOrdered By: Jayden Dodson on 10-29-2022 Platelets (Bld) [#/Vol] 269 10*3/uL 150-450 [facility] Serum or plasma albumin yocasta urement (mass/volume)Ordered By: Martha Dodson on 10-29-2022 Albumin [Mass/Vol] 3.3 g/dL 3.2-5.0 [facility] Serum or plasma albumin/glob ulin mass ratioOrdered By: Martha Dodson on 10-29-2022 Albumin/Globulin [Mass ratio] 1.1 {ratio} 0.9-2.4 [facility] Serum or plasma calcium yocasta urement (mass/volume)Ordered By: Martha Dodson on 10-29-2022 Calcium [Mass/Vol] 8.5 mg/dL 8.5-10.1 [facility] Serum or plasma creatinine m easurement (mass/volume)Ordered By: Martha Dodson on 10-29-2022 Creatinine [Mass/Vol] 1.49 mg/dL 0.70-1.30 [facility] Comment on above: The validity of the calculated GFR & GFRAA in patients over 70 years has not been determined. Clinical correlation is essential. Serum or plasma urea nitroge n measurement (mass/volume)Ordered By: Martha Dodson on 10-29-2022 Urea nitrogen [Mass/Vol] 23 mg/dL 7-18 [facility] Thin prep Papanicolaou smear with manual screeningOrdered By: Martha Dodson on 10-29-2022 Thin prep Papanicolaou smear with manual screening 8 U/L 15-37 [facility] Thin prep Papanicolaou smear with manual screening 5 5-15 [facility] Iron measurement (mass/mass) Ordered By: Martha Dodson on 09-30-2022 Iron (Unsp spec) [Mass/Mass] 30 ug/dL 65-175 [facility] No Panel InformationOrdered By: Martha Dodson on 09-30-2022 Thyroid Stimulating Hormone (TSH) 1.54 uIU/mL 0.358-3.74 [facility] Total Iron Binding Capacity 278 ug/dL 250-450 [facility] 1.54 uIU/mL 0.358-3.74 [facility] Serum or plasma ferritin vasquez surement (mass/volume)Ordered By: Martha Dodson on 09-30-2022 Ferritin [Mass/Vol] 37 ng/mL 26-388 [facility] Serum or plasma iron saturat ion measurement (mass fraction)Ordered By: Martha Dodson on 09-30-2022 Iron saturation [Mass fraction] 10.8 % 15.0-55.0 [facility] Laboratory - Chemistry and C hemistry - challengeOrdered By: Tobi Zapata on 09-04-2022 Cobalamin (Vitamin B12) [Mass/Vol] 547 pg/mL 211-911 [facility] Serum or plasma folate measu rement (mass/volume)Ordered By: Tobi Zapata on 09-04-2022 Folate [Mass/Vol] 6.50 ng/mL 3.1-55.4 [facility] Absolute lymphocyte countOrd ered By: Adam Freeman on 08-29-2022 Lymphocytes Auto (Unsp spec) [#/Vol] 1.02 10*3/uL 0.83-4.51 [facility] Basophil percentageOrdered B y: Adam Freeman on 08-29-2022 Basophils/100 WBC (Bld) 0.6 % 0-1 [facility] Bilirubin [Mass/Vol] 0.40 mg/dL 0.20-1.00 [facility] Comment on above: For patients on eltr ombopag therapy, use of Dimension [place] TBIL is not recommended. Chloride [Moles/Vol] 106 mmol/L 98-107 [facility] Eosinophils/100 WBC (Bld) 4.3 % 0-5 [facility] Glucose [Mass/Vol] 338 mg/dL 74-106 [facility] Comment on above: Glucose result great er than or equal to 200 mg/dLsuggests DIABETES MELLITUS per A.D.A. criteria. Neutrophils (Bld) [#/Vol] 4.5 10*3/uL 2.0-7.7 [facility] Neutrophils/100 WBC (Bld) 68.2 % 47-70 [facility] Potassium [Moles/Vol] 4.3 mmol/L 3.5-5.1 [facility] Protein [Mass/Vol] 7.0 g/dL 6.4-8.2 [facility] Sodium [Moles/Vol] 139 mmol/L 136-145 [facility] WBC (Bld) [#/Vol] 6.5 10*3/uL 4.4-11.0 [facility] Blood erythrocytes count (nu mber/volume)Ordered By: Adam Freeman on 08-29-2022 RBC (Bld) [#/Vol] 2.58 10*6/uL 4.6-6.2 [facility] Blood hemoglobin measurement (mass/volume)Ordered By: Adam Freeman on 08-29-2022 Hemoglobin (Bld) [Mass/Vol] 7.9 g/dL 13.0-16.5 [facility] Blood hemoglobin measurement (mass/volume)Ordered By: Khai Galeana on 08-29-2022 Hemoglobin (Bld) [Mass/Vol] 7.8 g/dL 13.0-16.5 [facility] Blood lymphocytes/100 leukoc ytesOrdered By: Adam Freeman on 08-29-2022 Lymphocytes/100 WBC (Bld) 15.6 % 19-41 [facility] Blood monocytes/100 leukocyt esOrdered By: Adam Freeman on 08-29-2022 Monocytes/100 WBC (Bld) 10.4 % 0-10 [facility] Blood platelet mean volumeOr dered By: Adam Freeman on 08-29-2022 Platelet mean volume (Bld) [Entitic vol] 10.4 fL 6.2-12.0 [facility] Determination of erythrocyte mean corpuscular volume (MCV)Ordered By: Adam Freeman on 08-29-2022 MCV (RBC) [Entitic vol] 95.7 fL 80-94 [facility] Hematocrit Auto (Bld) [Volum e fraction]Ordered By: Adam Freeman on 08-29-2022 Hematocrit (Bld) [Volume fraction] 24.7 % 40-54 [facility] Hematocrit Auto (Bld) [Volum e fraction]Ordered By: Khai Galeana on 08-29-2022 Hematocrit (Bld) [Volume fraction] 26.2 % 40-54 [facility] Laboratory - Chemistry and C hemistry - challengeOrdered By: Adam Freeman on 08-29-2022 ALP [Catalytic activity/Vol] 86 U/L 45-117 [facility] ALT [Catalytic activity/Vol] 19 U/L 16-61 [facility] CO2 [Moles/Vol] 28.0 mmol/L 21.0-32.0 [facility] Globulin (S) [Mass/Vol] 3.6 g/dL 2.2-4.2 [facility] Urea nitrogen/Creatinine [Mass ratio] 20.3 mg/mg 10-20 [facility] Laboratory - Hematology and Cell countsOrdered By: Adam Freeman on 08-29-2022 Erythrocyte distribution width (RBC) [Entitic vol] 50.5 fL 35.1-43.9 [facility] Erythrocyte distribution width (RBC) [Ratio] 14.7 % 11.6-14.6 [facility] Immature granulocytes/100 WBC (Bld) 0.900 % 0.0-0.9 [facility] Comment on above: IG% - Immature Granu locytes (promyelocytes, myelocytes and metamyelocytes) > 1% indicates that a LEFT SHIFT is Present. MCH (RBC) [Entitic mass] 30.6 pg 27.0-32.0 [facility] Nucleated RBC/100 WBC (Bld) [Ratio] 0 % 0-5 [facility] MCHC Auto (RBC) [Mass/Vol]Or dered By: Adam Freeman on 08-29-2022 MCHC (RBC) [Mass/Vol] 32.0 g/dL 32-36 [facility] No Panel InformationOrdered By: Adam Freeman on 08-29-2022 Estimated GFR (MDRD) Amer 62 mL/min >60 [facility] Comment on above: GFR Calc Estimated GFR (MDRD) Non-Af Amer 52 mL/min >60 [facility] Comment on above: Non- GFR Calc Platelets bldOrdered By: Valerie Freeman on 08-29-2022 Platelets (Bld) [#/Vol] 264 10*3/uL 150-450 [facility] Serum or plasma albumin yocasta urement (mass/volume)Ordered By: Adam Freeman on 08-29-2022 Albumin [Mass/Vol] 3.4 g/dL 3.2-5.0 [facility] Serum or plasma albumin/glob ulin mass ratioOrdered By: Adam Freeman on 08-29-2022 Albumin/Globulin [Mass ratio] 0.9 {ratio} 0.9-2.4 [facility] Serum or plasma calcium yocasta urement (mass/volume)Ordered By: Adam Freeman on 08-29-2022 Calcium [Mass/Vol] 8.8 mg/dL 8.5-10.1 [facility] Serum or plasma creatinine m easurement (mass/volume)Ordered By: Adam Freeman on 08-29-2022 Creatinine [Mass/Vol] 1.43 mg/dL 0.70-1.30 [facility] Comment on above: The validity of the calculated GFR & GFRAA in patients over 70 years has not been determined. Clinical correlation is essential. Serum or plasma urea nitroge n measurement (mass/volume)Ordered By: Adam Freeman on 08-29-2022 Urea nitrogen [Mass/Vol] 29 mg/dL 7-18 [facility] Thin prep Papanicolaou smear with manual screeningOrdered By: Adam Freeman on 08-29-2022 Thin prep Papanicolaou smear with manual screening 9 U/L 15-37 [facility] Thin prep Papanicolaou smear with manual screening 5 5-15 [facility] Absolute lymphocyte countOrd ered By: Tobi Zapata on 08-08-2022 Lymphocytes Auto (Unsp spec) [#/Vol] 1.70 10*3/uL 0.83-4.51 [facility] Basophil percentageOrdered B y: Tobi Zapata on 08-08-2022 Basophils/100 WBC (Bld) 0.6 % 0-1 [facility] Eosinophils/100 WBC (Bld) 4.5 % 0-5 [facility] Neutrophils (Bld) [#/Vol] 3.7 10*3/uL 2.0-7.7 [facility] Neutrophils/100 WBC (Bld) 55.8 % 47-70 [facility] WBC (Bld) [#/Vol] 6.7 10*3/uL 4.4-11.0 [facility] Blood erythrocytes count (nu mber/volume)Ordered By: Tobi Zapata on 08-08-2022 RBC (Bld) [#/Vol] 2.52 10*6/uL 4.6-6.2 [facility] Blood hemoglobin measurement (mass/volume)Ordered By: Tobi Zapata on 08-08-2022 Hemoglobin (Bld) [Mass/Vol] 7.6 g/dL 13.0-16.5 [facility] Blood lymphocytes/100 leukoc ytesOrdered By: Tobi Zapata on 08-08-2022 Lymphocytes/100 WBC (Bld) 25.4 % 19-41 [facility] Blood monocytes/100 leukocyt esOrdered By: Tobi Zapata on 08-08-2022 Monocytes/100 WBC (Bld) 12.1 % 0-10 [facility] Blood platelet mean volumeOr dered By: Tobi Zapata on 08-08-2022 Platelet mean volume (Bld) [Entitic vol] 10.3 fL 6.2-12.0 [facility] Determination of erythrocyte mean corpuscular volume (MCV)Ordered By: Tobi Zapata on 08-08-2022 MCV (RBC) [Entitic vol] 99.2 fL 80-94 [facility] Hematocrit Auto (Bld) [Volum e fraction]Ordered By: Tobi Zapata on 08-08-2022 Hematocrit (Bld) [Volume fraction] 25.0 % 40-54 [facility] Laboratory - Hematology and Cell countsOrdered By: Tobi Zapata on 08-08-2022 Erythrocyte distribution width (RBC) [Entitic vol] 54.2 fL 35.1-43.9 [facility] Erythrocyte distribution width (RBC) [Ratio] 15.0 % 11.6-14.6 [facility] Immature granulocytes/100 WBC (Bld) 1.600 % 0.0-0.9 [facility] Comment on above: IG% - Immature Granu locytes (promyelocytes, myelocytes and metamyelocytes) > 1% indicates that a LEFT SHIFT is Present. MCH (RBC) [Entitic mass] 30.2 pg 27.0-32.0 [facility] Nucleated RBC/100 WBC (Bld) [Ratio] 0.3 % 0-5 [facility] MCHC Auto (RBC) [Mass/Vol]Or dered By: Tobi Zapata on 08-08-2022 MCHC (RBC) [Mass/Vol] 30.4 g/dL 32-36 [facility] Platelets bldOrdered By: Mikael Zapata on 08-08-2022 Platelets (Bld) [#/Vol] 210 10*3/uL 150-450 [facility] Lower GI hemoglobin IA Ql (S tl)Ordered By: Tobi Zapata on 07-29-2022 Stool Occult Blood (FOREST) Positive [facility] Stool gastrointestinal hemoglobin detection by immunologic method Positive Abnormal [facility] Stool gastrointestinal hemog lobin detection by immunologic methodOrdered By: Tobi Zapata on 07-29-2022 Lower GI hemoglobin IA Ql (Stl) Positive Abnormal [facility] Basophil percentageOrdered B y: Tobi Zapata on 07-23-2022 Bilirubin [Mass/Vol] 0.30 mg/dL 0.20-1.00 [facility] Comment on above: For patients on eltr ombopag therapy, use of Dimension [place] TBIL is not recommended. Chloride [Moles/Vol] 115 mmol/L 98-107 [facility] Glucose [Mass/Vol] 323 mg/dL 74-106 [facility] Comment on above: Glucose result great er than or equal to 200 mg/dLsuggests DIABETES MELLITUS per A.D.A. criteria. LDH [Catalytic activity/Vol] 170 U/L 87-241 [facility] Potassium [Moles/Vol] 5.7 mmol/L 3.5-5.1 [facility] Protein [Mass/Vol] 6.2 g/dL 6.4-8.2 [facility] Sodium [Moles/Vol] 142 mmol/L 136-145 [facility] Iron measurement (mass/mass) Ordered By: Tobi Zapata on 07-23-2022 Iron (Unsp spec) [Mass/Mass] 70 ug/dL 65-175 [facility] Laboratory - Chemistry and C hemistry - challengeOrdered By: Tobi Zapata on 07-23-2022 ALP [Catalytic activity/Vol] 90 U/L 45-117 [facility] ALT [Catalytic activity/Vol] 19 U/L 16-61 [facility] CO2 [Moles/Vol] 20.0 mmol/L 21.0-32.0 [facility] Globulin (S) [Mass/Vol] 3.0 g/dL 2.2-4.2 [facility] Urea nitrogen/Creatinine [Mass ratio] 30.8 mg/mg 10-20 [facility] No Panel InformationOrdered By: Tobi Zapata on 07-23-2022 Estimated Creatinine Clearance Calc 48.71 ml/min [facility] Estimated GFR (MDRD) Amer 61 mL/min >60 [facility] Comment on above: GFR Calc Estimated GFR (MDRD) Non-Af Amer 50 mL/min >60 [facility] Comment on above: Non- GFR Calc Total Iron Binding Capacity 239 ug/dL 250-450 [facility] Serum or plasma albumin yocasta urement (mass/volume)Ordered By: Tobi Zapata on 07-23-2022 Albumin [Mass/Vol] 3.2 g/dL 3.2-5.0 [facility] Serum or plasma albumin/glob ulin mass ratioOrdered By: Tobi Zapata on 07-23-2022 Albumin/Globulin [Mass ratio] 1.1 {ratio} 0.9-2.4 [facility] Serum or plasma calcium yocasta urement (mass/volume)Ordered By: Tobi Zapata on 07-23-2022 Calcium [Mass/Vol] 8.1 mg/dL 8.5-10.1 [facility] Serum or plasma creatinine m easurement (mass/volume)Ordered By: Tobi Zapata on 07-23-2022 Creatinine [Mass/Vol] 1.46 mg/dL 0.70-1.30 [facility] Comment on above: The validity of the calculated GFR & GFRAA in patients over 70 years has not been determined. Clinical correlation is essential. Serum or plasma ferritin vasquez surement (mass/volume)Ordered By: Tobi Zapata on 07-23-2022 Ferritin [Mass/Vol] 98 ng/mL 26-388 [facility] Serum or plasma iron saturat ion measurement (mass fraction)Ordered By: Tobi Zapata on 07-23-2022 Iron saturation [Mass fraction] 29.3 % 15.0-55.0 [facility] Serum or plasma urea nitroge n measurement (mass/volume)Ordered By: Tobi Zapata on 07-23-2022 Urea nitrogen [Mass/Vol] 45 mg/dL 7-18 [facility] Thin prep Papanicolaou smear with manual screeningOrdered By: Tobi Zapata on 07-23-2022 Thin prep Papanicolaou smear with manual screening 13 U/L 15-37 [facility] Thin prep Papanicolaou smear with manual screening 7 5-15 [facility] Basophil percentageOrdered B y: Nate Bearden on 07-09-2022 Creatinine [Mass/Vol] 1.4 mg/dL 0.70-1.30 [facility] Laboratory - Chemistry and C hemistry - challengeOrdered By: Nate Bearden on 07-09-2022 GFR/1.73 sq M.predicted among non-blacks MDRD (S/P/Bld) [Vol rate/Area] 53.0000 mL/min/{1.73_m2} >60 [facility] Blood hemoglobin measurement (mass/volume)Ordered By: Khai Galeana on 06-19-2022 Hemoglobin (Bld) [Mass/Vol] 9.7 g/dL 13.0-16.5 [facility] Hematocrit Auto (Bld) [Volum e fraction]Ordered By: Khaimarielena Galeana on 06-19-2022 Hematocrit (Bld) [Volume fraction] 31.7 % 40-54 [facility] Iron measurement (mass/mass) Ordered By: Khai Galeana on 06-19-2022 Iron (Unsp spec) [Mass/Mass] 115 ug/dL 65-175 [facility] No Panel InformationOrdered By: Khai Galeana on 06-19-2022 Prostate Specific Antigen Screen 1.24 ng/mL 0.00-4.00 [facility] Comment on above: This test was perfor med using the TPSA assay method [facility]. Values obtained with differentassay methods cannot be used interchangably.When changing PSA assays in the course of monitoring apatient, additional sequential testing should be carriedout to confirm baseline values. Total Iron Binding Capacity 257 ug/dL 250-450 [facility] Serum or plasma ferritin vasquez surement (mass/volume)Ordered By: Khai Galeana on 06-19-2022 Ferritin [Mass/Vol] 283 ng/mL 26-388 [facility] Serum or plasma iron saturat ion measurement (mass fraction)Ordered By: Khai Galeana on 06-19-2022 Iron saturation [Mass fraction] 44.7 % 15.0-55.0 [facility] Stool gastrointestinal hemog lobin detection by immunologic methodOrdered By: Tobi Zapata on 03-10-2023 Lower GI hemoglobin IA Ql (Stl) [facility] Stool gastrointestinal hemog lobin detection by immunologic methodOrdered By: Dr. Zapata on 05-03-2022 Lower GI hemoglobin IA Ql (Stl) [facility] Absolute lymphocyte countOrd ered By: Dr. Zapata on 04-29-2022 Lymphocytes Auto (Unsp spec) [#/Vol] 3.43 10*3/uL 0.83-4.51 [facility] Basophil percentageOrdered B y: Dr. Zapata on 04-29-2022 Basophils/100 WBC (Bld) 0.6 % 0-1 [facility] Bilirubin [Mass/Vol] 0.30 mg/dL 0.20-1.00 [facility] Comment on above: For patients on eltr ombopag therapy, use of Dim[place] TBIL is not recommended. Chloride [Moles/Vol] 109 mmol/L 98-107 [facility] Eosinophils/100 WBC (Bld) 4.5 % 0-5 [facility] Glucose [Mass/Vol] 209 mg/dL 74-106 [facility] Comment on above: Glucose result great er than or equal to 200 mg/dLsuggests DIABETES MELLITUS per A.D.A. criteria. LDH [Catalytic activity/Vol] 223 U/L 87-241 [facility] Neutrophils (Bld) [#/Vol] 5.4 10*3/uL 2.0-7.7 [facility] Neutrophils/100 WBC (Bld) 49.7 % 47-70 [facility] Potassium [Moles/Vol] 4.5 mmol/L 3.5-5.1 [facility] Protein [Mass/Vol] 7.4 g/dL 6.4-8.2 [facility] Sodium [Moles/Vol] 141 mmol/L 136-145 [facility] WBC (Bld) [#/Vol] 10.8 10*3/uL 4.4-11.0 [facility] Blood erythrocytes count (nu mber/volume)Ordered By: Dr. Zapata on 04-29-2022 RBC (Bld) [#/Vol] 2.87 10*6/uL 4.6-6.2 [facility] Blood hemoglobin measurement (mass/volume)Ordered By: Dr. Zapata on 04-29-2022 Hemoglobin (Bld) [Mass/Vol] 8.5 g/dL 13.0-16.5 [facility] Blood lymphocytes/100 leukoc ytesOrdered By: Dr. Zapata on 04-29-2022 Lymphocytes/100 WBC (Bld) 31.8 % 19-41 [facility] Blood monocytes/100 leukocyt esOrdered By: Dr. Zapata on 04-29-2022 Monocytes/100 WBC (Bld) 11.9 % 0-10 [facility] Blood platelet mean volumeOr dered By: Dr. Zapata on 04-29-2022 Platelet mean volume (Bld) [Entitic vol] 9.6 fL 6.2-12.0 [facility] Determination of erythrocyte mean corpuscular volume (MCV)Ordered By: Dr. Zapata on 04-29-2022 MCV (RBC) [Entitic vol] 92.0 fL 80-94 [facility] Hematocrit Auto (Bld) [Volum e fraction]Ordered By: Dr. Zapata on 04-29-2022 Hematocrit (Bld) [Volume fraction] 26.4 % 40-54 [facility] Hemoglobin in reticulocytes (mass per reticulocyte)Ordered By: Dr. Zapata on 04-29-2022 Hemoglobin (Reticulocytes) [Entitic mass] 27.7 pg 30-35 [facility] Iron measurement (mass/mass) Ordered By: Dr. Zapata on 04-29-2022 Iron (Unsp spec) [Mass/Mass] 38 ug/dL 65-175 [facility] Laboratory - Chemistry and C hemistry - challengeOrdered By: Dr. Zapata on 04-29-2022 ALP [Catalytic activity/Vol] 82 U/L 45-117 [facility] ALT [Catalytic activity/Vol] 15 U/L 16-61 [facility] CO2 [Moles/Vol] 24.0 mmol/L 21.0-32.0 [facility] Globulin (S) [Mass/Vol] 4.2 g/dL 2.2-4.2 [facility] Urea nitrogen/Creatinine [Mass ratio] 22.9 mg/mg 10-20 [facility] Laboratory - Hematology and Cell countsOrdered By: Dr. Zapata on 04-29-2022 Erythrocyte distribution width (RBC) [Entitic vol] 48.0 fL 35.1-43.9 [facility] Erythrocyte distribution width (RBC) [Ratio] 14.3 % 11.6-14.6 [facility] Immature granulocytes/100 WBC (Bld) 1.500 % 0.0-0.9 [facility] Comment on above: IG% - Immature Granu locytes (promyelocytes, myelocytes and metamyelocytes) > 1% indicates that a LEFT SHIFT is Present. MCH (RBC) [Entitic mass] 29.6 pg 27.0-32.0 [facility] Nucleated RBC/100 WBC (Bld) [Ratio] 0 % 0-5 [facility] MCHC Auto (RBC) [Mass/Vol]Or dered By: Dr. Zapata on 04-29-2022 MCHC (RBC) [Mass/Vol] 32.2 g/dL 32-36 [facility] No Panel InformationOrdered By: Dr. Zapata on 04-29-2022 Estimated Creatinine Clearance Calc 54.29 ml/min [facility] Estimated GFR (MDRD) Amer 69 mL/min >60 [facility] Comment on above: GFR Calc Estimated GFR (MDRD) Non-Af Amer 57 mL/min >60 [facility] Comment on above: Non- GFR Calc Immature Reticulocyte Fraction 31.80 % 3.00-15.90 [facility] Reticulocyte Count 2.75 % 0.5-1.5 [facility] Total Iron Binding Capacity 256 ug/dL 250-450 [facility] No Panel InformationOrdered By: Tobi Zapata on 04-29-2022 2.75 % 0.5-1.5 [facility] 31.80 % 3.00-15.90 [facility] Platelets bldOrdered By: Dr. Zapata on 04-29-2022 Platelets (Bld) [#/Vol] 398 10*3/uL 150-450 [facility] Serum or plasma albumin yocasta urement (mass/volume)Ordered By: Dr. Zapata on 04-29-2022 Albumin [Mass/Vol] 3.2 g/dL 3.2-5.0 [facility] Serum or plasma albumin/glob ulin mass ratioOrdered By: Dr. Zapata on 04-29-2022 Albumin/Globulin [Mass ratio] 0.8 {ratio} 0.9-2.4 [facility] Serum or plasma calcium yocasta urement (mass/volume)Ordered By: Dr. Zapata on 04-29-2022 Calcium [Mass/Vol] 9.3 mg/dL 8.5-10.1 [facility] Serum or plasma creatinine m easurement (mass/volume)Ordered By: Dr. Zapata on 04-29-2022 Creatinine [Mass/Vol] 1.31 mg/dL 0.70-1.30 [facility] Comment on above: The validity of the calculated GFR & GFRAA in patients over 70 years has not been determined. Clinical correlation is essential. Serum or plasma ferritin vasquez surement (mass/volume)Ordered By: Dr. Zapata on 04-29-2022 Ferritin [Mass/Vol] 203 ng/mL 26-388 [facility] Serum or plasma iron saturat ion measurement (mass fraction)Ordered By: Dr. Zapata on 04-29-2022 Iron saturation [Mass fraction] 14.8 % 15.0-55.0 [facility] Serum or plasma urea nitroge n measurement (mass/volume)Ordered By: Dr. Zapata on 04-29-2022 Urea nitrogen [Mass/Vol] 30 mg/dL 7-18 [facility] Thin prep Papanicolaou smear with manual screeningOrdered By: Dr. Zapata on 04-29-2022 Thin prep Papanicolaou smear with manual screening 9 U/L 15-37 [facility] Thin prep Papanicolaou smear with manual screening 8 5-15 [facility] Basophil percentageOrdered B y: DANNIELLE PIÑA on 03-09-2022 Basophils (Bld) [#/Vol] 5.6 10*3/uL 4.4-11.0 [facility] WBC (Bld) [#/Vol] 5.6 10*3/uL 4.4-11.0 [facility] Blood erythrocytes count (nu mber/volume)Ordered By: DANNIELLE PIÑA on 03-09-2022 RBC (Bld) [#/Vol] 3.47 10*6/uL 4.6-6.2 [facility] Blood hemoglobin measurement (mass/volume)Ordered By: DANNIELLE PIÑA on 03-09-2022 Hemoglobin (Bld) [Mass/Vol] 9.6 g/dL 13.0-16.5 [facility] Blood platelet mean volumeOr dered By: DANNIELLE PIÑA on 03-09-2022 Platelet mean volume (Bld) [Entitic vol] 10.8 fL 6.2-12.0 [facility] Determination of erythrocyte mean corpuscular volume (MCV)Ordered By: DANNIELLE PIÑA on 03-09-2022 MCV (RBC) [Entitic vol] 88.2 fL 80-94 [facility] Hematocrit Auto (Bld) [Volum e fraction]Ordered By: DANNIELLE PIÑA on 03-09-2022 Hematocrit (Bld) [Volume fraction] 30.6 % 40-54 [facility] Laboratory - Hematology and Cell countsOrdered By: DANNIELLE PIÑA on 03-09-2022 Erythrocyte distribution width (RBC) [Entitic vol] 49.5 fL 35.1-43.9 [facility] Erythrocyte distribution width (RBC) [Ratio] 15.5 % 11.6-14.6 [facility] MCH (RBC) [Entitic mass] 27.7 pg 27.0-32.0 [facility] MCHC Auto (RBC) [Mass/Vol]Or dered By: DANNIELLE PIÑA on 03-09-2022 MCHC (RBC) [Mass/Vol] 31.4 g/dL 32-36 [facility] No Panel InformationOrdered By: DANNIELLE PIÑA on 03-09-2022 27.7 pg 27.0-32.0 [facility] 15.5 % 11.6-14.6 [facility] 49.5 fl 35.1-43.9 [facility] Platelets bldOrdered By: EDWARD NEWSOME on 03-09-2022 Platelets (Bld) [#/Vol] 265 10*3/uL 150-450 [facility] Laboratory - Microbiology an d Antimicrobial susceptibilityOrdered By: Dr. Walker on 02-20-2022 Bacteria identified Cx Nom (Bld) No growth in 5 days. [facility] No Panel InformationOrdered By: Dr. Walker on 02-20-2022 No growth in 5 days. [facility] Bacteria identified Cx Nom ( U)Ordered By: Dr. Walker on 02-16-2022 Culture, urine Positive [facility] Culture, urineOrdered By: Dr Juan Walker on 02-16-2022 Bacteria identified Cx Nom (U) Positive [facility] Laboratory - Microbiology an d Antimicrobial susceptibilityOrdered By: Dr. Rosas on 02-16-2022 Respiratory pathogens DNA and RNA 12b panel JUSTIN+probe (Unsp spec) [facility] Absolute lymphocyte countOrd ered By: Dr. Shannon on 02-15-2022 Lymphocytes Auto (Unsp spec) [#/Vol] 2.99 10*3/uL 0.83-4.51 [facility] Basophil percentageOrdered B y: Dr. Shannon on 02-15-2022 Basophil percentage 161 mg/dL 74-106 [facility] Basophil percentage 139 mmol/L 136-145 [facility] Basophil percentage 4.1 mmol/L 3.5-5.1 [facility] Basophil percentage 107 mmol/L 98-107 [facility] Basophils (Bld) [#/Vol] 11.1 10*3/uL 4.4-11.0 [facility] Basophils (Bld) [#/Vol] 6.1 10*3/uL 2.0-7.7 [facility] Basophils/100 WBC (Bld) 0.6 % 0-1 [facility] Basophils/100 WBC (Bld) 54.4 % 47-70 [facility] Basophils/100 WBC (Bld) 3.0 % 0-5 [facility] Chloride [Moles/Vol] 107 mmol/L 98-107 [facility] Eosinophils/100 WBC (Bld) 3.0 % 0-5 [facility] Glucose [Mass/Vol] 161 mg/dL 74-106 [facility] Comment on above: Fasting Glucose resu lt greater than or equal to 126 mg/dL suggests DIABETES MELLITUS per A.D.A. criteria. Neutrophils (Bld) [#/Vol] 6.1 10*3/uL 2.0-7.7 [facility] Neutrophils/100 WBC (Bld) 54.4 % 47-70 [facility] Potassium [Moles/Vol] 4.1 mmol/L 3.5-5.1 [facility] Sodium [Moles/Vol] 139 mmol/L 136-145 [facility] WBC (Bld) [#/Vol] 11.1 10*3/uL 4.4-11.0 [facility] Blood erythrocytes count (nu mber/volume)Ordered By: Dr. Shannon on 02-15-2022 RBC (Bld) [#/Vol] 3.68 10*6/uL 4.6-6.2 [facility] Blood hemoglobin measurement (mass/volume)Ordered By: Dr. Shannon on 02-15-2022 Hemoglobin (Bld) [Mass/Vol] 10.5 g/dL 13.0-16.5 [facility] Blood lymphocytes/100 leukoc ytesOrdered By: Dr. Shannon on 02-15-2022 Lymphocytes/100 WBC (Bld) 26.8 % 19-41 [facility] Blood manual differential co mment interpretation (narrative result)Ordered By: Dr. Shannon on 02-15-2022 Manual differential comment Sohan (Bld) [Interp] SCANNED [facility] Blood monocytes/100 leukocyt esOrdered By: Dr. Shannon on 02-15-2022 Monocytes/100 WBC (Bld) 14.3 % 0-10 [facility] Blood platelet mean volumeOr dered By: Dr. Shannon on 02-15-2022 Platelet mean volume (Bld) [Entitic vol] 10.6 fL 6.2-12.0 [facility] Determination of erythrocyte mean corpuscular volume (MCV)Ordered By: Dr. Shannon on 02-15-2022 MCV (RBC) [Entitic vol] 89.1 fL 80-94 [facility] Hematocrit Auto (Bld) [Volum e fraction]Ordered By: Dr. Shannon on 02-15-2022 Hematocrit (Bld) [Volume fraction] 32.8 % 40-54 [facility] Laboratory - Chemistry and C hemistry - challengeOrdered By: Dr. Shannon on 02-15-2022 CO2 [Moles/Vol] 25.0 mmol/L 21.0-32.0 [facility] Urea nitrogen/Creatinine [Mass ratio] 25.8 mg/mg 10-20 [facility] Laboratory - Hematology and Cell countsOrdered By: Dr. Shannon on 02-15-2022 Erythrocyte distribution width (RBC) [Entitic vol] 49.6 fL 35.1-43.9 [facility] Erythrocyte distribution width (RBC) [Ratio] 15.2 % 11.6-14.6 [facility] Immature granulocytes/100 WBC (Bld) 0.900 % 0.0-0.9 [facility] Comment on above: IG% - Immature Granu locytes (promyelocytes, myelocytes and metamyelocytes) > 1% indicates that a LEFT SHIFT is Present. MCH (RBC) [Entitic mass] 28.5 pg 27.0-32.0 [facility] Nucleated RBC/100 WBC (Bld) [Ratio] 0 % 0-5 [facility] MCHC Auto (RBC) [Mass/Vol]Or dered By: Dr. Shannon on 02-15-2022 MCHC (RBC) [Mass/Vol] 32.0 g/dL 32-36 [facility] No Panel InformationOrdered By: Dr. Shannon on 02-15-2022 Methicillin-Resist S.aureus DNA PCR Negative Negative [facility] Negative Negative [facility] Estimated Creatinine Clearance Calc 53.88 ml/min [facility] Estimated GFR (MDRD) Amer 69 mL/min >60 [facility] Comment on above: GFR Calc Estimated GFR (MDRD) Non-Af Amer 57 mL/min >60 [facility] Comment on above: Non- GFR Calc 28.5 pg 27.0-32.0 [facility] 15.2 % 11.6-14.6 [facility] 49.6 fl 35.1-43.9 [facility] 0.900 % 0.0-0.9 [facility] 0 % 0-5 [facility] 57 mL/min >60 [facility] 69 mL/min >60 [facility] 53.88 ml/min [facility] 25.8 RATIO 10-20 [facility] 25.0 mmol/L 21.0-32.0 [facility] Platelets bldOrdered By: Dr. Shannon on 02-15-2022 Platelets (Bld) [#/Vol] 357 10*3/uL 150-450 [facility] Review by pathologistOrdered By: Dr. Shannon on 02-15-2022 Pathologist review Sohan (Unsp spec) [Interp] Reviewed [facility] Comment on above: Previous reported re sult: Josephine hair Edited by: ROSETTA on 02/15/22:1412Leukocytosis. Normocytic anemia.Clinical correlation necessary.Mc Urias M.D. 02/15/22 AMENDED REPORT 02/15/22 1412 PATH REV previously reported as: Josephine hair Serum or plasma calcium yocasta urement (mass/volume)Ordered By: Dr. Shannon on 02-15-2022 Calcium [Mass/Vol] 9.3 mg/dL 8.5-10.1 [facility] Serum or plasma creatinine m easurement (mass/volume)Ordered By: Dr. Shannon on 02-15-2022 Creatinine [Mass/Vol] 1.32 mg/dL 0.70-1.30 [facility] Comment on above: The validity of the calculated GFR & GFRAA in patients over 70 years has not been determined. Clinical correlation is essential. Serum or plasma urea nitroge n measurement (mass/volume)Ordered By: Dr. Shannon on 02-15-2022 Urea nitrogen [Mass/Vol] 34 mg/dL 7-18 [facility] Thin prep Papanicolaou smear with manual screeningOrdered By: Dr. Shannon on 02-15-2022 Thin prep Papanicolaou smear with manual screening 7 5-15 [facility] Absolute lymphocyte counton 02-14-2022 Lymphocytes Auto (Unsp spec) [#/Vol] 1.28 10*3/uL 0.83-4.51 [facility] Work Phone: Amorphous sediment detection in urine sediment by light microscopyOrdered By: Dr. Walker on 02-14-2022 Amorphous sediment LM Ql (Urine sed) 1+ URATE [facility] Basophil percentageOrdered B y: Dr. Walker on 02-14-2022 Basophil percentage 50-100 SEEN /hpf 0-5 [facility] Basophil percentage 1.0 mmol/L 0.4-2.0 [facility] Lactate [Moles/Vol] 1.0 mmol/L 0.4-2.0 [facility] Basophil percentageon 2021 Basophils/100 WBC (Bld) 0.5 % 0-1 [facility] Work Phone: Chloride [Moles/Vol] 109 mmol/L 98-107 [facility] Work Phone: Eosinophils/100 WBC (Bld) 1.4 % 0-5 [facility] Work Phone: Glucose [Mass/Vol] 217 mg/dL 74-106 [facility] Work Phone: Comment on above: Glucose result great er than or equal to 200 mg/dLsuggests DIABETES MELLITUS per A.D.A. criteria. Neutrophils (Bld) [#/Vol] 7.6 10*3/uL 2.0-7.7 [facility] Work Phone: Neutrophils/100 WBC (Bld) 72.2 % 47-70 [facility] Work Phone: [phone] Potassium [Moles/Vol] 5.1 mmol/L 3.5-5.1 [facility] Work Phone: [phone] Sodium [Moles/Vol] 138 mmol/L 136-145 [facility] Work Phone: [phone] WBC (Bld) [#/Vol] 10.6 10*3/uL 4.4-11.0 [facility] Work Phone: Bilirubin Test strip Ql (U)O rdered By: Dr. Walker on 02-14-2022 Bilirubin Ql (U) Negative Negative [facility] Blood erythrocytes count (nu mber/volume)on 02-14-2022 RBC (Bld) [#/Vol] 3.59 10*6/uL 4.6-6.2 [facility] Work Phone: Blood hemoglobin measurement (mass/volume)on 02-14-2022 Hemoglobin (Bld) [Mass/Vol] 10.1 g/dL 13.0-16.5 [facility] Work Phone: Blood lymphocytes/100 leukoc yteson 02-14-2022 Lymphocytes/100 WBC (Bld) 12.1 % 19-41 [facility] Work Phone: Blood monocytes/100 leukocyt eson 02-14-2022 Monocytes/100 WBC (Bld) 13.2 % 0-10 [facility] Work Phone: Blood platelet mean volumeon 02-14-2022 Platelet mean volume (Bld) [Entitic vol] 10.0 fL 6.2-12.0 [facility] Work Phone: Determination of erythrocyte mean corpuscular volume (MCV)on 02-14-2022 MCV (RBC) [Entitic vol] 89.1 fL 80-94 [facility] Work Phone: Hematocrit Auto (Bld) [Volum e fraction]on 02-14-2022 Hematocrit (Bld) [Volume fraction] 32.0 % 40-54 [facility] Work Phone: Ketones Test strip Ql (U)Ord ered By: Dr. Walker on 02-14-2022 Ketones Ql (U) Negative Negative [facility] Laboratory - Chemistry and C hemistry - challengeon 02-14-2022 CO2 [Moles/Vol] 25.0 mmol/L 21.0-32.0 [facility] Work Phone: Urea nitrogen/Creatinine [Mass ratio] 27.1 mg/mg 10-20 [facility] Work Phone: [phone] Laboratory - Chemistry and C hemistry - challengeOrdered By: Dr. Walker on 02-14-2022 Natriuretic peptide B (Bld) [Mass/Vol] 204.9 pg/mL 0-100 [facility] Laboratory - Hematology and Cell countson 02-14-2022 Erythrocyte distribution width (RBC) [Entitic vol] 50.8 fL 35.1-43.9 [facility] Work Phone: [phone] Erythrocyte distribution width (RBC) [Ratio] 15.5 % 11.6-14.6 [facility] Work Phone: Immature granulocytes/100 WBC (Bld) 0.600 % 0.0-0.9 [facility] Work Phone: Comment on above: IG% - Immature Granu locytes (promyelocytes, myelocytes and metamyelocytes) > 1% indicates that a LEFT SHIFT is Present. MCH (RBC) [Entitic mass] 28.1 pg 27.0-32.0 [facility] Work Phone: Nucleated RBC/100 WBC (Bld) [Ratio] 0 % 0-5 [facility] Work Phone: MCHC Auto (RBC) [Mass/Vol]on 02-14-2022 MCHC (RBC) [Mass/Vol] 31.6 g/dL 32-36 [facility] Work Phone: Mucus LM Ql (Urine sed)Order ed By: Dr. Walker on 02-14-2022 Mucus Ql (Urine sed) 0 SEEN /hpf [facility] Nitrite Test strip Ql (U)Ord ered By: Dr. Walker on 02-14-2022 Nitrite Ql (U) Negative Negative [facility] No Panel InformationOrdered By: Dr. Walker on 02-14-2022 D-Dimer Quantitative (PE/DVT) 1.88 FEU/ug/m 0.27-0.49 [facility] Comment on above: D-Dimer ELEVATED (>0 .49): Additional studies and clinicalassessments are indicated to conclude diagnosis of:Deep Vein Thrombosis (DVT) or Pulmonary Embolism (PE)CRITICAL VALUE VERIFIED. [facility]02/14/22 7232 Claire Nair.RESULTS READ BACK BY SAME . Troponin I High Sensitivity 12 pg/mL 3.0-78.0 [facility] Comment on above: Please Note: New Nicole t Units and Gender Specific Reference Ranges. For more information see Policy Stat Procedure [place] High Sensitivity Troponin (TNIH) and attachments. 1.88 FEU/ug/m 0.27-0.49 [facility] 12 pg/mL 3.0-78.0 [facility] 204.9 pg/mL 0-100 [facility] No Panel Informationon 02-14 Estimated Creatinine Clearance Calc 49.39 ml/min [facility] Work Phone: Estimated GFR (MDRD) Amer 62 mL/min >60 [facility] Work Phone: Comment on above: GFR Calc Estimated GFR (MDRD) Non-Af Amer 51 mL/min >60 [facility] Work Phone: Comment on above: Non- GFR Calc Platelets bldon 02-14-2022 Platelets (Bld) [#/Vol] 295 10*3/uL 150-450 [facility] Work Phone: Protein Test strip Ql (U)Ord ered By: Dr. Walker on 02-14-2022 Protein Ql (U) 30 mg/dl Negative [facility] Serum or plasma calcium yocasta urement (mass/volume)on 02-14-2022 Calcium [Mass/Vol] 9.3 mg/dL 8.5-10.1 [facility] Work Phone: Serum or plasma creatinine m easurement (mass/volume)on 02-14-2022 Creatinine [Mass/Vol] 1.44 mg/dL 0.70-1.30 [facility] Work Phone: Comment on above: The validity of the calculated GFR & GFRAA in patients over 70 years has not been determined. Clinical correlation is essential. Serum or plasma urea nitroge n measurement (mass/volume)on 02-14-2022 Urea nitrogen [Mass/Vol] 39 mg/dL 7-18 [facility] Work Phone: [phone] Squamous epithelial cells de tection in urine sediment by light microscopyOrdered By: Dr. Walker on 02-14-2022 Epithelial cells.squamous LM Ql (Urine sed) 0-5 SEEN /hpf 0-5 [facility] Thin prep Papanicolaou smear with manual screeningon 02-14-2022 Thin prep Papanicolaou smear with manual screening 4 5-15 [facility] Work Phone: [phone] Urine blood detectionOrdered By: Dr. Walker on 02-14-2022 RBC Ql (U) 25 /ul Negative [facility] RBC Ql (U) 5-10 SEEN /hpf 0-5 [facility] Urine clarityOrdered By: Dr. Walker on 02-14-2022 Clarity (U) Sl. Cloudy Clear [facility] Urine color determinationOrd ered By: Dr. Walker on 02-14-2022 Color (U) Yellow Yellow [facility] Urine glucose detectionOrder ed By: Dr. Walker on 02-14-2022 Glucose Ql (U) Normal mg/dl Normal [facility] Urine leukocyte esterase det ection by dipstickOrdered By: Dr. Walker on 02-14-2022 Leukocyte esterase Test strip Ql (U) 500 /ul Negative [facility] Urine pHOrdered By: Dr. Cindy ryan on 02-14-2022 pH (U) 5.0 [pH] 5.0 - 8.0 [facility] Urine sediment bacteria coun t by microscopy (number/high power field)Ordered By: Dr. Walker on 02-14-2022 Bacteria LM.HPF (Urine sed) [#/Area] RARE /hpf None Seen [facility] Urine specific gravity measu rementOrdered By: Dr. Walker on 02-14-2022 Specific gravity (U) [Rel density] 1.015 1.002-1.030 [facility] Urobilinogen Auto test strip Ql (U)Ordered By: Dr. Walker on 02-14-2022 Urobilinogen Ql (U) Normal mg/dl Normal [facility] Basophil percentageOrdered B y: DANNIELLE PIÑA on 02-06-2022 Basophils (Bld) [#/Vol] 9.4 10*3/uL 4.4-11.0 [facility] WBC (Bld) [#/Vol] 9.4 10*3/uL 4.4-11.0 [facility] Blood erythrocytes count (nu mber/volume)Ordered By: DANNIELLE PIÑA on 02-06-2022 RBC (Bld) [#/Vol] 3.50 10*6/uL 4.6-6.2 [facility] Blood hemoglobin measurement (mass/volume)Ordered By: DANNIELLE PIÑA on 02-06-2022 Hemoglobin (Bld) [Mass/Vol] 10.0 g/dL 13.0-16.5 [facility] Blood platelet mean volumeOr dered By: DANNIELLE PIÑA on 02-06-2022 Platelet mean volume (Bld) [Entitic vol] 10.9 fL 6.2-12.0 [facility] Determination of erythrocyte mean corpuscular volume (MCV)Ordered By: DANNIELLE PIÑA on 02-06-2022 MCV (RBC) [Entitic vol] 89.7 fL 80-94 [facility] Hematocrit Auto (Bld) [Volum e fraction]Ordered By: DANNIELLE PIÑA on 02-06-2022 Hematocrit (Bld) [Volume fraction] 31.4 % 40-54 [facility] Laboratory - Hematology and Cell countsOrdered By: DANNIELLE PIÑA on 02-06-2022 Erythrocyte distribution width (RBC) [Entitic vol] 52.0 fL 35.1-43.9 [facility] Erythrocyte distribution width (RBC) [Ratio] 16.0 % 11.6-14.6 [facility] MCH (RBC) [Entitic mass] 28.6 pg 27.0-32.0 [facility] MCHC Auto (RBC) [Mass/Vol]Or dered By: DANNIELLE PIÑA on 02-06-2022 MCHC (RBC) [Mass/Vol] 31.8 g/dL 32-36 [facility] No Panel InformationOrdered By: DANNIELLE PIÑA on 02-06-2022 28.6 pg 27.0-32.0 [facility] 16.0 % 11.6-14.6 [facility] 52.0 fl 35.1-43.9 [facility] Platelets bldOrdered By: EDWARD NEWSOME on 02-06-2022 Platelets (Bld) [#/Vol] 325 10*3/uL 150-450 [facility] Absolute lymphocyte countOrd ered By: Dr. Zapata on 02-05-2022 Lymphocytes Auto (Unsp spec) [#/Vol] 3.30 10*3/uL 0.83-4.51 [facility] Basophil percentageOrdered B y: Dr. Zapata on 02-05-2022 Basophil percentage 196 mg/dL 74-106 [facility] Basophil percentage 6.8 g/dL 6.4-8.2 [facility] Basophil percentage 0.50 mg/dL 0.20-1.00 [facility] Basophil percentage 141 mmol/L 136-145 [facility] Basophil percentage 4.3 mmol/L 3.5-5.1 [facility] Basophil percentage 109 mmol/L 98-107 [facility] Basophils (Bld) [#/Vol] 11.4 10*3/uL 4.4-11.0 [facility] Basophils (Bld) [#/Vol] 5.4 10*3/uL 2.0-7.7 [facility] Basophils/100 WBC (Bld) 0.6 % 0-1 [facility] Basophils/100 WBC (Bld) 47.0 % 47-70 [facility] Basophils/100 WBC (Bld) 11.9 % 0-5 [facility] Basophil percentageon 2021 Bilirubin [Mass/Vol] 0.50 mg/dL 0.20-1.00 [facility] Work Phone: Comment on above: For patients on eltr ombopag therapy, use of Dimension [place] TBIL is not recommended. Chloride [Moles/Vol] 109 mmol/L 98-107 [facility] Work Phone: Eosinophils/100 WBC (Bld) 11.9 % 0-5 [facility] Work Phone: Glucose [Mass/Vol] 196 mg/dL 74-106 [facility] Work Phone: Comment on above: Fasting Glucose resu lt greater than or equal to 126 mg/dL suggests DIABETES MELLITUS per A.D.A. criteria. Neutrophils (Bld) [#/Vol] 5.4 10*3/uL 2.0-7.7 [facility] Work Phone: Neutrophils/100 WBC (Bld) 47.0 % 47-70 [facility] Work Phone: Potassium [Moles/Vol] 4.3 mmol/L 3.5-5.1 [facility] Work Phone: Protein [Mass/Vol] 6.8 g/dL 6.4-8.2 [facility] Work Phone: Sodium [Moles/Vol] 141 mmol/L 136-145 [facility] Work Phone: WBC (Bld) [#/Vol] 11.4 10*3/uL 4.4-11.0 [facility] Work Phone: Blood erythrocytes count (nu mber/volume)Ordered By: Dr. Zapata on 02-05-2022 RBC (Bld) [#/Vol] 3.87 10*6/uL 4.6-6.2 [facility] Blood hemoglobin measurement (mass/volume)Ordered By: Dr. Zapata on 02-05-2022 Hemoglobin (Bld) [Mass/Vol] 10.8 g/dL 13.0-16.5 [facility] Blood lymphocytes/100 leukoc ytesOrdered By: Dr. Zapata on 02-05-2022 Lymphocytes/100 WBC (Bld) 28.9 % 19-41 [facility] Blood monocytes/100 leukocyt esOrdered By: Dr. Zapata on 02-05-2022 Monocytes/100 WBC (Bld) 10.5 % 0-10 [facility] Blood platelet mean volumeOr dered By: Dr. Zapata on 02-05-2022 Platelet mean volume (Bld) [Entitic vol] 9.8 fL 6.2-12.0 [facility] Determination of erythrocyte mean corpuscular volume (MCV)Ordered By: Dr. Zapata on 02-05-2022 MCV (RBC) [Entitic vol] 90.2 fL 80-94 [facility] Hematocrit Auto (Bld) [Volum e fraction]Ordered By: Dr. Zapata on 02-05-2022 Hematocrit (Bld) [Volume fraction] 34.9 % 40-54 [facility] Iron measurement (mass/mass) Ordered By: Dr. Zapata on 02-05-2022 Iron (Unsp spec) [Mass/Mass] 88 ug/dL 65-175 [facility] Laboratory - Chemistry and C hemistry - challengeon 02-05-2022 ALP [Catalytic activity/Vol] 92 U/L 45-117 [facility] Work Phone: ALT [Catalytic activity/Vol] 18 U/L 16-61 [facility] Work Phone: CO2 [Moles/Vol] 27.0 mmol/L 21.0-32.0 [facility] Work Phone: Globulin (S) [Mass/Vol] 3.3 g/dL 2.2-4.2 [facility] Work Phone: Urea nitrogen/Creatinine [Mass ratio] 23.9 mg/mg 10-20 [facility] Work Phone: Laboratory - Chemistry and C hemistry - challengeOrdered By: Dr. Zapata on 02-05-2022 Cobalamin (Vitamin B12) [Mass/Vol] 941 pg/mL 211-911 [facility] Laboratory - Hematology and Cell countson 02-05-2022 Erythrocyte distribution width (RBC) [Entitic vol] 53.1 fL 35.1-43.9 [facility] Work Phone: Erythrocyte distribution width (RBC) [Ratio] 16.2 % 11.6-14.6 [facility] Work Phone: [phone] Immature granulocytes/100 WBC (Bld) 1.100 % 0.0-0.9 [facility] Work Phone: [phone] Comment on above: IG% - Immature Granu locytes (promyelocytes, myelocytes and metamyelocytes) > 1% indicates that a LEFT SHIFT is Present. MCH (RBC) [Entitic mass] 27.9 pg 27.0-32.0 [facility] Work Phone: Nucleated RBC/100 WBC (Bld) [Ratio] 0 % 0-5 [facility] Work Phone: MCHC Auto (RBC) [Mass/Vol]Or dered By: Dr. Zapata on 02-05-2022 MCHC (RBC) [Mass/Vol] 30.9 g/dL 32-36 [facility] No Panel Informationon 02-05 Estimated Creatinine Clearance Calc 53.07 ml/min [facility] Work Phone: Estimated GFR (MDRD) Amer 67 mL/min >60 [facility] Work Phone: Comment on above: GFR Calc Estimated GFR (MDRD) Non-Af Amer 56 mL/min >60 [facility] Work Phone: Comment on above: Non- GFR Calc Total Iron Binding Capacity 246 ug/dL 250-450 [facility] Work Phone: No Panel InformationOrdered By: Dr. Zapata on 02-05-2022 27.9 pg 27.0-32.0 [facility] 16.2 % 11.6-14.6 [facility] 53.1 fl 35.1-43.9 [facility] 1.100 % 0.0-0.9 [facility] 0 % 0-5 [facility] 56 mL/min >60 [facility] 67 mL/min >60 [facility] 53.07 ml/min [facility] 23.9 RATIO 10-20 [facility] 3.3 g/dL 2.2-4.2 [facility] 92 U/L 45-117 [facility] 18 U/L 16-61 [facility] 27.0 mmol/L 21.0-32.0 [facility] 941 pg/mL 211-911 [facility] 246 ug/dL 250-450 [facility] Platelets bldOrdered By: Dr. Zapata on 02-05-2022 Platelets (Bld) [#/Vol] 355 10*3/uL 150-450 [facility] Serum or plasma albumin yocasta urement (mass/volume)Ordered By: Dr. Zapata on 02-05-2022 Albumin [Mass/Vol] 3.5 g/dL 3.2-5.0 [facility] Serum or plasma albumin/glob ulin mass ratioOrdered By: Dr. Zapata on 02-05-2022 Albumin/Globulin [Mass ratio] 1.1 {ratio} 0.9-2.4 [facility] Serum or plasma calcium yocasta urement (mass/volume)Ordered By: Dr. Zapata on 02-05-2022 Calcium [Mass/Vol] 9.5 mg/dL 8.5-10.1 [facility] Serum or plasma creatinine m easurement (mass/volume)Ordered By: Dr. Zapata on 02-05-2022 Creatinine [Mass/Vol] 1.34 mg/dL 0.70-1.30 [facility] Comment on above: The validity of the calculated GFR & GFRAA in patients over 70 years has not been determined. Clinical correlation is essential. Serum or plasma ferritin vasquez surement (mass/volume)Ordered By: Dr. Zapata on 02-05-2022 Ferritin [Mass/Vol] 631 ng/mL 26-388 [facility] Serum or plasma folate measu rement (mass/volume)Ordered By: Dr. Zapata on 02-05-2022 Folate [Mass/Vol] 8.40 ng/mL 3.1-55.4 [facility] Serum or plasma iron saturat ion measurement (mass fraction)Ordered By: Dr. Zapata on 02-05-2022 Iron saturation [Mass fraction] 35.8 % 15.0-55.0 [facility] Serum or plasma urea nitroge n measurement (mass/volume)Ordered By: Dr. Zapata on 02-05-2022 Urea nitrogen [Mass/Vol] 32 mg/dL 7-18 [facility] Thin prep Papanicolaou smear with manual screeningOrdered By: Dr. Zapata on 02-05-2022 Thin prep Papanicolaou smear with manual screening 10 U/L 15-37 [facility] Thin prep Papanicolaou smear with manual screening 5 5-15 [facility] Thin prep Papanicolaou smear with manual screening 195 U/L 87-241 [facility] Basophil percentageOrdered B y: Khai Galeana on 01-15-2022 Basophils (Bld) [#/Vol] 8.3 10*3/uL 4.4-11.0 [facility] Basophil percentageon 2021 WBC (Bld) [#/Vol] 8.3 10*3/uL 4.4-11.0 [facility] Work Phone: Blood erythrocytes count (nu mber/volume)Ordered By: Khai Galeana on 01-15-2022 RBC (Bld) [#/Vol] 3.34 10*6/uL 4.6-6.2 [facility] Blood hemoglobin measurement (mass/volume)Ordered By: Khai Galeana on 01-15-2022 Hemoglobin (Bld) [Mass/Vol] 9.3 g/dL 13.0-16.5 [facility] Blood platelet mean volumeOr dered By: Khai Galeana on 01-15-2022 Platelet mean volume (Bld) [Entitic vol] 10.2 fL 6.2-12.0 [facility] Determination of erythrocyte mean corpuscular volume (MCV)Ordered By: Khai Galeana on 01-15-2022 MCV (RBC) [Entitic vol] 88.3 fL 80-94 [facility] Hematocrit Auto (Bld) [Volum e fraction]Ordered By: Khai Galeana on 01-15-2022 Hematocrit (Bld) [Volume fraction] 29.5 % 40-54 [facility] Laboratory - Hematology and Cell countson 01-15-2022 Erythrocyte distribution width (RBC) [Entitic vol] 55.7 fL 35.1-43.9 [facility] Work Phone: Erythrocyte distribution width (RBC) [Ratio] 17.2 % 11.6-14.6 [facility] Work Phone: MCH (RBC) [Entitic mass] 27.8 pg 27.0-32.0 [facility] Work Phone: MCHC Auto (RBC) [Mass/Vol]Or dered By: Khai Galeana on 01-15-2022 MCHC (RBC) [Mass/Vol] 31.5 g/dL 32-36 [facility] No Panel InformationOrdered By: Khai Galeana on 01-15-2022 27.8 pg 27.0-32.0 [facility] 17.2 % 11.6-14.6 [facility] 55.7 fl 35.1-43.9 [facility] Platelets bldOrdered By: Wagner Galeana on 01-15-2022 Platelets (Bld) [#/Vol] 334 10*3/uL 150-450 [facility] Absolute lymphocyte counton 12-26-2021 Lymphocytes Auto (Unsp spec) [#/Vol] 1.61 10*3/uL 0.83-4.51 [facility] Work Phone: Basophil percentageon 2021 Basophils/100 WBC (Bld) 0.7 % 0-1 [facility] Work Phone: Bilirubin [Mass/Vol] 0.40 mg/dL 0.20-1.00 [facility] Work Phone: Comment on above: For patients on eltr ombopag therapy, use of Dimension [place] TBIL is not recommended. Chloride [Moles/Vol] 108 mmol/L 98-107 [facility] Work Phone: Eosinophils/100 WBC (Bld) 8.3 % 0-5 [facility] Work Phone: Glucose [Mass/Vol] 196 mg/dL 74-106 [facility] Work Phone: Comment on above: Fasting Glucose resu lt greater than or equal to 126 mg/dL suggests DIABETES MELLITUS per A.D.A. criteria. Neutrophils (Bld) [#/Vol] 5.3 10*3/uL 2.0-7.7 [facility] Work Phone: Neutrophils/100 WBC (Bld) 62.0 % 47-70 [facility] Work Phone: Potassium [Moles/Vol] 4.4 mmol/L 3.5-5.1 [facility] Work Phone: Protein [Mass/Vol] 5.9 g/dL 6.4-8.2 [facility] Work Phone: Sodium [Moles/Vol] 139 mmol/L 136-145 [facility] Work Phone: WBC (Bld) [#/Vol] 8.5 10*3/uL 4.4-11.0 [facility] Work Phone: Blood erythrocytes count (nu mber/volume)on 12-26-2021 RBC (Bld) [#/Vol] 2.95 10*6/uL 4.6-6.2 [facility] Work Phone: Blood hemoglobin measurement (mass/volume)on 12-26-2021 Hemoglobin (Bld) [Mass/Vol] 8.4 g/dL 13.0-16.5 [facility] Work Phone: Blood lymphocytes/100 leukoc yteson 12-26-2021 Lymphocytes/100 WBC (Bld) 19.0 % 19-41 [facility] Work Phone: Blood monocytes/100 leukocyt eson 12-26-2021 Monocytes/100 WBC (Bld) 8.8 % 0-10 [facility] Work Phone: Blood platelet mean volumeon 12-26-2021 Platelet mean volume (Bld) [Entitic vol] 10.3 fL 6.2-12.0 [facility] Work Phone: Determination of erythrocyte mean corpuscular volume (MCV)on 12-26-2021 MCV (RBC) [Entitic vol] 89.2 fL 80-94 [facility] Work Phone: Hematocrit Auto (Bld) [Volum e fraction]on 12-26-2021 Hematocrit (Bld) [Volume fraction] 26.3 % 40-54 [facility] Work Phone: Hemoglobin in reticulocytes (mass per reticulocyte)Ordered By: Dr. Zapata on 12-26-2021 Hemoglobin (Reticulocytes) [Entitic mass] 28.7 pg 30-35 [facility] Iron measurement (mass/mass) on 12-26-2021 Iron (Unsp spec) [Mass/Mass] 54 ug/dL 65-175 [facility] Work Phone: Laboratory - Chemistry and C hemistry - challengeon 12-26-2021 ALP [Catalytic activity/Vol] 92 U/L 45-117 [facility] Work Phone: ALT [Catalytic activity/Vol] 24 U/L 16-61 [facility] Work Phone: CO2 [Moles/Vol] 25.0 mmol/L 21.0-32.0 [facility] Work Phone: [phone] Globulin (S) [Mass/Vol] 3.1 g/dL 2.2-4.2 [facility] Work Phone: [phone] Urea nitrogen/Creatinine [Mass ratio] 16.9 mg/mg 10-20 [facility] Work Phone: [phone] Laboratory - Hematology and Cell countson 12-26-2021 Erythrocyte distribution width (RBC) [Entitic vol] 59.1 fL 35.1-43.9 [facility] Work Phone: [phone] Erythrocyte distribution width (RBC) [Ratio] 18.3 % 11.6-14.6 [facility] Work Phone: [phone] Immature granulocytes/100 WBC (Bld) 1.200 % 0.0-0.9 [facility] Work Phone: [phone] Comment on above: IG% - Immature Granu locytes (promyelocytes, myelocytes and metamyelocytes) > 1% indicates that a LEFT SHIFT is Present. MCH (RBC) [Entitic mass] 28.5 pg 27.0-32.0 [facility] Work Phone: [phone] Nucleated RBC/100 WBC (Bld) [Ratio] 0 % 0-5 [facility] Work Phone: [phone] MCHC Auto (RBC) [Mass/Vol]on 12-26-2021 MCHC (RBC) [Mass/Vol] 31.9 g/dL 32-36 [facility] Work [facility]: [phone] Panel Informationon 12-26 Estimated GFR (MDRD) Amer 78 mL/min >60 [facility] Work Phone: [phone] Comment on above: GFR Calc Estimated GFR (MDRD) Non-Af Amer 64 mL/min >60 [facility] Work Phone: [phone] Comment on above: Non- GFR Calc Immature Reticulocyte Fraction 31.90 % 3.00-15.90 [facility] Work Phone: [phone] Reticulocyte Count 3.23 % 0.5-1.5 [facility] Work Phone: Total Iron Binding Capacity 235 ug/dL 250-450 [facility] Work Phone: No Panel InformationOrdered By: Dr. Zapata on 12-26-2021 Immature Platelet Fraction 28.7 % 1.0-7.9 [facility] Comment on above: Low PLT + Low IPF joyce ggest a bone marrow production disorderLow PLT + high IPF suggests peripheral destruction(e.g.ITP, TTP, HIT, DIC, autoimmune) or bone marrow recoveryTrending of serial IPF measurements is recommended when evaluating for bone marrow responesValue above normal range indicates an increase in RBC cellular response from bone marrow. 3.23 % 0.5-1.5 [facility] 31.90 % 3.00-15.90 [facility] 28.7 % 1.0-7.9 [facility] Platelets bldon 12-26-2021 Platelets (Bld) [#/Vol] 221 10*3/uL 150-450 [facility] Work Phone: Serum or plasma albumin yocasta urement (mass/volume)on 12-26-2021 Albumin [Mass/Vol] 2.8 g/dL 3.2-5.0 [facility] Work Phone: Serum or plasma albumin/glob ulin mass ratioon 12-26-2021 Albumin/Globulin [Mass ratio] 0.9 {ratio} 0.9-2.4 [facility] Work Phone: Serum or plasma calcium yocasta urement (mass/volume)on 12-26-2021 Calcium [Mass/Vol] 8.4 mg/dL 8.5-10.1 [facility] Work Phone: Serum or plasma creatinine m easurement (mass/volume)on 12-26-2021 Creatinine [Mass/Vol] 1.18 mg/dL 0.70-1.30 [facility] Work Phone: Comment on above: The validity of the calculated GFR & GFRAA in patients over 70 years has not been determined. Clinical correlation is essential. Serum or plasma ferritin vasquez surement (mass/volume)on 12-26-2021 Ferritin [Mass/Vol] 160 ng/mL 26-388 [facility] Work Phone: Serum or plasma iron saturat ion measurement (mass fraction)on 12-26-2021 Iron saturation [Mass fraction] 23.0 % 15.0-55.0 [facility] Work Phone: Serum or plasma urea nitroge n measurement (mass/volume)on 12-26-2021 Urea nitrogen [Mass/Vol] 20 mg/dL 7-18 [facility] Work Phone: Thin prep Papanicolaou smear with manual screeningon 12-26-2021 Thin prep Papanicolaou smear with manual screening 13 U/L 15-37 [facility] Work Phone: Thin prep Papanicolaou smear with manual screening 6 5-15 [facility] Work Phone: Thin prep Papanicolaou smear with manual screening 213 U/L 87-241 [facility] Work Phone: Absolute lymphocyte countOrd ered By: Khai Galeana on 12-21-2021 Lymphocytes Auto (Unsp spec) [#/Vol] 1.52 10*3/uL 0.83-4.51 [facility] Basophil percentageOrdered B y: Khai Galeana on 12-21-2021 Basophils (Bld) [#/Vol] 10.1 10*3/uL 4.4-11.0 [facility] Basophils (Bld) [#/Vol] 6.5 10*3/uL 2.0-7.7 [facility] Basophils/100 WBC (Bld) 0.4 % 0-1 [facility] Basophils/100 WBC (Bld) 64.3 % 47-70 [facility] Basophils/100 WBC (Bld) 8.4 % 0-5 [facility] Basophil percentageon 2021 Eosinophils/100 WBC (Bld) 8.4 % 0-5 [facility] Work Phone: Neutrophils (Bld) [#/Vol] 6.5 10*3/uL 2.0-7.7 [facility] Work Phone: Neutrophils/100 WBC (Bld) 64.3 % 47-70 [facility] Work Phone: WBC (Bld) [#/Vol] 10.1 10*3/uL 4.4-11.0 [facility] Work Phone: Blood erythrocytes count (nu mber/volume)Ordered By: Khai Galeana on 12-21-2021 RBC (Bld) [#/Vol] 3.50 10*6/uL 4.6-6.2 [facility] Blood hemoglobin measurement (mass/volume)Ordered By: Khai Galeana on 12-21-2021 Hemoglobin (Bld) [Mass/Vol] 9.8 g/dL 13.0-16.5 [facility] Blood lymphocytes/100 leukoc ytesOrdered By: Khai Galeana on 12-21-2021 Lymphocytes/100 WBC (Bld) 15.1 % 19-41 [facility] Blood monocytes/100 leukocyt esOrdered By: Khai Galeana on 12-21-2021 Monocytes/100 WBC (Bld) 9.6 % 0-10 [facility] Blood platelet mean volumeOr dered By: Khai Galeana on 12-21-2021 Platelet mean volume (Bld) [Entitic vol] 10.8 fL 6.2-12.0 [facility] Determination of erythrocyte mean corpuscular volume (MCV)Ordered By: Khai Galeana on 12-21-2021 MCV (RBC) [Entitic vol] 90.0 fL 80-94 [facility] Hematocrit Auto (Bld) [Volum e fraction]Ordered By: Khai Galeana on 12-21-2021 Hematocrit (Bld) [Volume fraction] 31.5 % 40-54 [facility] Laboratory - Hematology and Cell countson 12-21-2021 Erythrocyte distribution width (RBC) [Entitic vol] 63.5 fL 35.1-43.9 [facility] Work Phone: Erythrocyte distribution width (RBC) [Ratio] 19.1 % 11.6-14.6 [facility] Work Phone: Immature granulocytes/100 WBC (Bld) 2.200 % 0.0-0.9 [facility] Work Phone: Comment on above: IG% - Immature Granu locytes (promyelocytes, myelocytes and metamyelocytes) > 1% indicates that a LEFT SHIFT is Present. MCH (RBC) [Entitic mass] 28.0 pg 27.0-32.0 [facility] Work Phone: Nucleated RBC/100 WBC (Bld) [Ratio] 0 % 0-5 [facility] Work Phone: MCHC Auto (RBC) [Mass/Vol]Or dered By: Khai Galeana on 12-21-2021 MCHC (RBC) [Mass/Vol] 31.1 g/dL 32-36 [facility] No Panel InformationOrdered By: hKai Galeana on 12-21-2021 28.0 pg 27.0-32.0 [facility] 19.1 % 11.6-14.6 [facility] 63.5 fl 35.1-43.9 [facility] 2.200 % 0.0-0.9 [facility] 0 % 0-5 [facility] Platelets bldOrdered By: Wagner Galeana on 12-21-2021 Platelets (Bld) [#/Vol] 242 10*3/uL 150-450 [facility] No Panel InformationOrdered By: Dr. Joy on 12-14-2021 No growth in 5 days. [facility] Absolute lymphocyte countOrd ered By: Dr. Rosas on 12-11-2021 Lymphocytes Auto (Unsp spec) [#/Vol] 0.92 10*3/uL 0.83-4.51 [facility] Basophil percentageOrdered B y: Dr. Rosas on 12-11-2021 Basophil percentage 324 mg/dL 74-106 [facility] Basophil percentage 5.2 g/dL 6.4-8.2 [facility] Basophil percentage 0.30 mg/dL 0.20-1.00 [facility] Basophil percentage 141 mmol/L 136-145 [facility] Basophil percentage 5.0 mmol/L 3.5-5.1 [facility] Basophil percentage 109 mmol/L 98-107 [facility] Basophils (Bld) [#/Vol] 8.9 10*3/uL 4.4-11.0 [facility] Basophils (Bld) [#/Vol] 7.4 10*3/uL 2.0-7.7 [facility] Basophils/100 WBC (Bld) 0.1 % 0-1 [facility] Basophils/100 WBC (Bld) 83.3 % 47-70 [facility] Basophils/100 WBC (Bld) 0.0 % 0-5 [facility] Basophil percentageon 2021 Bilirubin [Mass/Vol] 0.30 mg/dL 0.20-1.00 [facility] Work Phone: Comment on above: For patients on eltr ombopag therapy, use of Dimension [place] TBIL is not recommended. Chloride [Moles/Vol] 109 mmol/L 98-107 [facility] Work Phone: Eosinophils/100 WBC (Bld) 0.0 % 0-5 [facility] Work Phone: Glucose [Mass/Vol] 324 mg/dL 74-106 [facility] Work Phone: Comment on above: Glucose result great er than or equal to 200 mg/dLsuggests DIABETES MELLITUS per A.D.A. criteria. Neutrophils (Bld) [#/Vol] 7.4 10*3/uL 2.0-7.7 [facility] Work Phone: Neutrophils/100 WBC (Bld) 83.3 % 47-70 [facility] Work Phone: Potassium [Moles/Vol] 5.0 mmol/L 3.5-5.1 [facility] Work Phone: Protein [Mass/Vol] 5.2 g/dL 6.4-8.2 [facility] Work Phone: Sodium [Moles/Vol] 141 mmol/L 136-145 [facility] Work Phone: WBC (Bld) [#/Vol] 8.9 10*3/uL 4.4-11.0 [facility] Work Phone: Blood erythrocytes count (nu mber/volume)Ordered By: Dr. Rosas on 12-11-2021 RBC (Bld) [#/Vol] 2.86 10*6/uL 4.6-6.2 [facility] Blood hemoglobin measurement (mass/volume)Ordered By: Dr. Rosas on 12-11-2021 Hemoglobin (Bld) [Mass/Vol] 8.1 g/dL 13.0-16.5 [facility] Blood lymphocytes/100 leukoc ytesOrdered By: Dr. Rosas on 12-11-2021 Lymphocytes/100 WBC (Bld) 10.4 % 19-41 [facility] Blood monocytes/100 leukocyt esOrdered By: Dr. Rosas on 12-11-2021 Monocytes/100 WBC (Bld) 4.7 % 0-10 [facility] Blood platelet mean volumeOr dered By: Dr. Rosas on 12-11-2021 Platelet mean volume (Bld) [Entitic vol] 11.2 fL 6.2-12.0 [facility] Determination of erythrocyte mean corpuscular volume (MCV)Ordered By: Dr. Rosas on 12-11-2021 MCV (RBC) [Entitic vol] 88.5 fL 80-94 [facility] Glucose Glucometer (BldC) [M ass/Vol]Ordered By: Dr. Ortiz on 12-11-2021 Glucose [Mass/Vol] 283 mg/dL 74-106 [facility] Comment on above: MANAGEMENT OF PATIEN T CARE PER NURSING PROTOCOL Hematocrit Auto (Bld) [Volum e fraction]Ordered By: Dr. Rosas on 12-11-2021 Hematocrit (Bld) [Volume fraction] 25.3 % 40-54 [facility] Laboratory - Chemistry and C hemistry - challengeon 12-11-2021 ALP [Catalytic activity/Vol] 66 U/L 45-117 [facility] Work Phone: ALT [Catalytic activity/Vol] 20 U/L 16-61 [facility] Work Phone: [phone] CO2 [Moles/Vol] 27.0 mmol/L 21.0-32.0 [facility] Work Phone: [phone] Globulin (S) [Mass/Vol] 2.7 g/dL 2.2-4.2 [facility] Work Phone: [phone] Urea nitrogen/Creatinine [Mass ratio] 30.4 mg/mg 10-20 [facility] Work Phone: [phone] Laboratory - Hematology and Cell countson 12-11-2021 Erythrocyte distribution width (RBC) [Entitic vol] 56.6 fL 35.1-43.9 [facility] Work Phone: [phone] Erythrocyte distribution width (RBC) [Ratio] 17.5 % 11.6-14.6 [facility] Work Phone: [phone] Immature granulocytes/100 WBC (Bld) 1.500 % 0.0-0.9 [facility] Work Phone: [phone] Comment on above: IG% - Immature Granu locytes (promyelocytes, myelocytes and metamyelocytes) > 1% indicates that a LEFT SHIFT is Present. MCH (RBC) [Entitic mass] 28.3 pg 27.0-32.0 [facility] Work Phone: [phone] Nucleated RBC/100 WBC (Bld) [Ratio] 0.2 % 0-5 [facility] Work Phone: [phone] MCHC Auto (RBC) [Mass/Vol]Or dered By: Dr. Rosas on 12-11-2021 MCHC (RBC) [Mass/Vol] 32.0 g/dL 32-36 [facility] No Panel Informationon 12-11 Estimated Creatinine Clearance Calc 61.84 ml/min [facility] Work Phone: [phone] Estimated GFR (MDRD) Amer 80 mL/min >60 [facility] Work Phone: [phone] Comment on above: GFR Calc Estimated GFR (MDRD) Non-Af Amer 66 mL/min >60 [facility] Work Phone: [phone] Comment on above: Non- GFR Calc No Panel InformationOrdered By: Dr. Rosas on 12-11-2021 28.3 pg 27.0-32.0 [facility] 17.5 % 11.6-14.6 [facility] 56.6 fl 35.1-43.9 [facility] 1.500 % 0.0-0.9 [facility] 0.2 % 0-5 [facility] 66 mL/min >60 [facility] 80 mL/min >60 [facility] 61.84 ml/min [facility] 30.4 RATIO 10-20 [facility] 2.7 g/dL 2.2-4.2 [facility] 66 U/L 45-117 [facility] 20 U/L 16-61 [facility] 27.0 mmol/L 21.0-32.0 [facility] Platelets bldOrdered By: Dr. Rosas on 12-11-2021 Platelets (Bld) [#/Vol] 239 10*3/uL 150-450 [facility] Serum or plasma albumin yoacsta urement (mass/volume)Ordered By: Dr. Rosas on 12-11-2021 Albumin [Mass/Vol] 2.5 g/dL 3.2-5.0 [facility] Serum or plasma albumin/glob ulin mass ratioOrdered By: Dr. Rosas on 12-11-2021 Albumin/Globulin [Mass ratio] 0.9 {ratio} 0.9-2.4 [facility] Serum or plasma calcium yocasta urement (mass/volume)Ordered By: Dr. Rosas on 12-11-2021 Calcium [Mass/Vol] 8.4 mg/dL 8.5-10.1 [facility] Serum or plasma creatinine m easurement (mass/volume)Ordered By: Dr. Rosas on 12-11-2021 Creatinine [Mass/Vol] 1.15 mg/dL 0.70-1.30 [facility] Comment on above: The validity of the calculated GFR & GFRAA in patients over 70 years has not been determined. Clinical correlation is essential. Serum or plasma urea nitroge n measurement (mass/volume)Ordered By: Dr. Rosas on 12-11-2021 Urea nitrogen [Mass/Vol] 35 mg/dL 7-18 [facility] Thin prep Papanicolaou smear with manual screeningOrdered By: Dr. Rosas on 12-11-2021 Thin prep Papanicolaou smear with manual screening 12 U/L 15-37 [facility] Thin prep Papanicolaou smear with manual screening 5 5-15 [facility] INR in Blood by Coagulation assayOrdered By: Dr. Chen on 12-10-2021 INR Coag (Bld) [Relative time] 1.2 {INR} [facility] Laboratory - Coagulationon 1 aPTT Coag (Bld) [Time] 24.6 s 24.1-36.2 [facility] Work Phone: PT Coag (PPP) [Time] 14.8 s 11.7-14.9 [facility] Work Phone: Microbial respiratory cultur eOrdered By: Dr. Joy on 12-10-2021 Bacteria identified Respiratory culture Nom (Unsp spec) or Staphylococcus aureus isolated. [facility] No Panel InformationOrdered By: Dr. Chen on 12-10-2021 14.8 SECONDS 11.7-14.9 [facility] 24.6 Seconds 24.1-36.2 [facility] Whole blood hemoglobin A1c/t otal hemoglobin ratio (mass fraction)Ordered By: Dr. Chen on 12-10-2021 HbA1c (Bld) [Mass fraction] 8.5 % 3.8-5.6 [facility] Comment on above: Normal < 5.7 % Predi abetic 5.7 - 6.4 % Diabetic >or= 6.5 % Please note range changes. Gram stain for investigation of transfusion reactionOrdered By: Dr. Joy on 12-09-2021 Microscopic observation Gram stain Nom (Unsp spec) [facility] Lower GI hemoglobin IA Ql (S tl)Ordered By: Dr. Rosas on 12-09-2021 Stool gastrointestinal hemoglobin detection by immunologic method Positive [facility] Respiratory pathogens DNA an d RNA 12b panel JUSTIN+probe (Unsp spec)Ordered By: Dr. Mackey on 12-09-2021 Rhinovirus [facility] Urine Legionella pneumophila antigen detectionOrdered By: Dr. Mackey on 12-09-2021 L. pneumophila Ag Ql (U) [facility] Absolute lymphocyte counton 12-08-2021 Lymphocytes Auto (Unsp spec) [#/Vol] 1.72 10*3/uL 0.83-4.51 [facility] Work Phone: Basophil percentageon 2021 Basophils/100 WBC (Bld) 0.7 % 0-1 [facility] Work Phone: Chloride [Moles/Vol] 110 mmol/L 98-107 [facility] Work Phone: Eosinophils/100 WBC (Bld) 3.8 % 0-5 [facility] Work Phone: Glucose [Mass/Vol] 200 mg/dL 74-106 [facility] Work Phone: Comment on above: Glucose result great er than or equal to 200 mg/dLsuggests DIABETES MELLITUS per A.D.A. criteria. Neutrophils (Bld) [#/Vol] 7.9 10*3/uL 2.0-7.7 [facility] Work Phone: Neutrophils/100 WBC (Bld) 68.8 % 47-70 [facility] Work Phone: Potassium [Moles/Vol] 4.0 mmol/L 3.5-5.1 [facility] Work Phone: Sodium [Moles/Vol] 143 mmol/L 136-145 [facility] Work Phone: WBC (Bld) [#/Vol] 11.5 10*3/uL 4.4-11.0 [facility] Work Phone: Blood erythrocytes count (nu mber/volume)on 12-08-2021 RBC (Bld) [#/Vol] 3.36 10*6/uL 4.6-6.2 [facility] Work Phone: Blood hemoglobin measurement (mass/volume)on 12-08-2021 Hemoglobin (Bld) [Mass/Vol] 9.0 g/dL 13.0-16.5 [facility] Work Phone: Blood lymphocytes/100 leukoc yteson 12-08-2021 Lymphocytes/100 WBC (Bld) 15.0 % 19-41 [facility] Work Phone: Blood monocytes/100 leukocyt eson 12-08-2021 Monocytes/100 WBC (Bld) 9.0 % 0-10 [facility] Work Phone: Blood platelet mean volumeon 12-08-2021 Platelet mean volume (Bld) [Entitic vol] 9.9 fL 6.2-12.0 [facility] Work Phone: Determination of erythrocyte mean corpuscular volume (MCV)on 12-08-2021 MCV (RBC) [Entitic vol] 88.7 fL 80-94 [facility] Work Phone: Hematocrit Auto (Bld) [Volum e fraction]on 12-08-2021 Hematocrit (Bld) [Volume fraction] 29.8 % 40-54 [facility] Work Phone: Laboratory - Chemistry and C hemistry - challengeon 12-08-2021 CO2 [Moles/Vol] 26.0 mmol/L 21.0-32.0 [facility] Work Phone: Natriuretic peptide B (Bld) [Mass/Vol] 191.0 pg/mL 0-100 [facility] Work Phone: Urea nitrogen/Creatinine [Mass ratio] 19.3 mg/mg 10-20 [facility] Work Phone: Laboratory - Hematology and Cell countson 12-08-2021 Erythrocyte distribution width (RBC) [Entitic vol] 57.9 fL 35.1-43.9 [facility] Work Phone: Erythrocyte distribution width (RBC) [Ratio] 17.9 % 11.6-14.6 [facility] Work Phone: Immature granulocytes/100 WBC (Bld) 2.700 % 0.0-0.9 [facility] Work Phone: Comment on above: IG% - Immature Granu locytes (promyelocytes, myelocytes and metamyelocytes) > 1% indicates that a LEFT SHIFT is Present. MCH (RBC) [Entitic mass] 26.8 pg 27.0-32.0 [facility] Work Phone: Nucleated RBC/100 WBC (Bld) [Ratio] 0 % 0-5 [facility] Work Phone: [phone] MCHC Auto (RBC) [Mass/Vol]on 12-08-2021 MCHC (RBC) [Mass/Vol] 30.2 g/dL 32-36 [facility] Work Phone: No Panel Informationon 12-08 Methicillin-Resist S.aureus DNA PCR Negative Negative [facility] Work Phone: D-Dimer Quantitative (PE/DVT) 1.50 FEU/ug/m 0.27-0.49 [facility] Work Phone: [phone] Comment on above: CRITICAL VALUE VERIF IED. CALLED TO [id number] Tim Oliva.RESULTS READ BACK BY SAME . D-Dimer ELEVATED (>0.49): Additional studies and clinicalassessments are indicated to conclude diagnosis of:Deep Vein Thrombosis (DVT) or Pulmonary Embolism (PE) Estimated Creatinine Clearance Calc 59.76 ml/min [facility] Work Phone: Estimated GFR (MDRD) Amer 77 mL/min >60 [facility] Work Phone: [phone] Comment on above: GFR Calc Estimated GFR (MDRD) Non-Af Amer 64 mL/min >60 [facility] Work Phone: Comment on above: Non- GFR Calc Troponin I High Sensitivity 11 pg/mL 3.0-78.0 [facility] Work Phone: Comment on above: Please Note: New Nicole t Units and Gender Specific Reference Ranges. For more information see Policy Stat Procedure [place] High Sensitivity Troponin (TNIH) and attachments. No Panel InformationOrdered By: Dr. Mackey on 12-08-2021 Negative Negative [facility] No Panel InformationOrdered By: Dr. Joy on 12-08-2021 1.50 FEU/ug/m 0.27-0.49 [facility] 11 pg/mL 3.0-78.0 [facility] 191.0 pg/mL 0-100 [facility] Platelets bldon 12-08-2021 Platelets (Bld) [#/Vol] 352 10*3/uL 150-450 [facility] Work Phone: Serum or plasma calcium yocasta urement (mass/volume)on 12-08-2021 Calcium [Mass/Vol] 9.1 mg/dL 8.5-10.1 [facility] Work Phone: Serum or plasma creatinine m easurement (mass/volume)on 12-08-2021 Creatinine [Mass/Vol] 1.19 mg/dL 0.70-1.30 [facility] Work Phone: Comment on above: The validity of the calculated GFR & GFRAA in patients over 70 years has not been determined. Clinical correlation is essential. Serum or plasma urea nitroge n measurement (mass/volume)on 12-08-2021 Urea nitrogen [Mass/Vol] 23 mg/dL 7-18 [facility] Work Phone: Thin prep Papanicolaou smear with manual screeningon 12-08-2021 Thin prep Papanicolaou smear with manual screening 7 - [facility] Work Phone: Basophil percentageon 2021 WBC (Bld) [#/Vol] 8.6 10*3/uL 4.4-11.0 [facility] Work Phone: Blood erythrocytes count (nu mber/volume)on 11-16-2021 RBC (Bld) [#/Vol] 3.80 10*6/uL 4.6-6.2 [facility] Work Phone: Blood hemoglobin measurement (mass/volume)on 11-16-2021 Hemoglobin (Bld) [Mass/Vol] 10.2 g/dL 13.0-16.5 [facility] Work Phone: Blood platelet mean volumeon 11-16-2021 Platelet mean volume (Bld) [Entitic vol] 10.9 fL 6.2-12.0 [facility] Work Phone: Determination of erythrocyte mean corpuscular volume (MCV)on 11-16-2021 MCV (RBC) [Entitic vol] 88.2 fL 80-94 [facility] Work Phone: [phone] Hematocrit Auto (Bld) [Volum e fraction]on 11-16-2021 Hematocrit (Bld) [Volume fraction] 33.5 % 40-54 [facility] Work Phone: Laboratory - Hematology and Cell countson 11-16-2021 Erythrocyte distribution width (RBC) [Entitic vol] 56.0 fL 35.1-43.9 [facility] Work Phone: [phone] Erythrocyte distribution width (RBC) [Ratio] 17.5 % 11.6-14.6 [facility] Work Phone: [phone] MCH (RBC) [Entitic mass] 26.8 pg 27.0-32.0 [facility] Work Phone: [phone] MCHC Auto (RBC) [Mass/Vol]on 11-16-2021 MCHC (RBC) [Mass/Vol] 30.4 g/dL 32-36 [facility] Work Phone: Platelets bldon 11-16-2021 Platelets (Bld) [#/Vol] 218 10*3/uL 150-450 [facility] Work Phone: [phone] Absolute lymphocyte counton 10-26-2021 Lymphocytes Auto (Unsp spec) [#/Vol] 0.85 10*3/uL 0.83-4.51 [facility] Work Phone: [phone] Basophil percentageon 2021 Basophils/100 WBC (Bld) 0.2 % 0-1 [facility] Work Phone: [phone] Bilirubin [Mass/Vol] 0.40 mg/dL 0.20-1.00 [facility] Work Phone: Comment on above: For patients on eltr ombopag therapy, use of Dimension [place] TBIL is not recommended. Chloride [Moles/Vol] 106 mmol/L 98-107 [facility] Work Phone: Eosinophils/100 WBC (Bld) 0.3 % 0-5 [facility] Work Phone: Glucose [Mass/Vol] 120 mg/dL 74-106 [facility] Work Phone: Comment on above: Fasting Glucose resu lt from 100 to 125 mg/dL suggests IMPAIRED HOMEOSTASIS per A.D.A. criteria. Neutrophils (Bld) [#/Vol] 6.8 10*3/uL 2.0-7.7 [facility] Work Phone: Neutrophils/100 WBC (Bld) 75.9 % 47-70 [facility] Work Phone: Potassium [Moles/Vol] 4.0 mmol/L 3.5-5.1 [facility] Work Phone: Protein [Mass/Vol] 5.3 g/dL 6.4-8.2 [facility] Work Phone: Sodium [Moles/Vol] 143 mmol/L 136-145 [facility] Work Phone: WBC (Bld) [#/Vol] 8.9 10*3/uL 4.4-11.0 [facility] Work Phone: Blood erythrocytes count (nu mber/volume)on 10-26-2021 RBC (Bld) [#/Vol] 3.44 10*6/uL 4.6-6.2 [facility] Work Phone: Blood hemoglobin measurement (mass/volume)on 10-26-2021 Hemoglobin (Bld) [Mass/Vol] 9.0 g/dL 13.0-16.5 [facility] Work Phone: Blood lymphocytes/100 leukoc yteson 10-26-2021 Lymphocytes/100 WBC (Bld) 9.6 % 19-41 [facility] Work Phone: Blood monocytes/100 leukocyt eson 10-26-2021 Monocytes/100 WBC (Bld) 12.5 % 0-10 [facility] Work Phone: [phone] Blood platelet mean volumeon 10-26-2021 Platelet mean volume (Bld) [Entitic vol] 10.2 fL 6.2-12.0 [facility] Work Phone: [phone] Determination of erythrocyte mean corpuscular volume (MCV)on 10-26-2021 MCV (RBC) [Entitic vol] 85.5 fL 80-94 [facility] Work Phone: Glucose Glucometer (BldC) [M ass/Vol]on 10-26-2021 Glucose [Mass/Vol] 236 mg/dL 74-106 [facility] Work Phone: Comment on above: MANAGEMENT OF PATIEN T CARE PER NURSING PROTOCOL Hematocrit Auto (Bld) [Volum e fraction]on 10-26-2021 Hematocrit (Bld) [Volume fraction] 29.4 % 40-54 [facility] Work Phone: Laboratory - Chemistry and C hemistry - challengeon 10-26-2021 ALP [Catalytic activity/Vol] 71 U/L 45-117 [facility] Work Phone: ALT [Catalytic activity/Vol] 11 U/L 16-61 [facility] Work Phone: [phone] CO2 [Moles/Vol] 30.0 mmol/L 21.0-32.0 [facility] Work Phone: [phone] Globulin (S) [Mass/Vol] 2.6 g/dL 2.2-4.2 [facility] Work Phone: [phone] Urea nitrogen/Creatinine [Mass ratio] 20.3 mg/mg 10-20 [facility] Work Phone: [phone] Laboratory - Hematology and Cell countson 10-26-2021 Erythrocyte distribution width (RBC) [Entitic vol] 49.1 fL 35.1-43.9 [facility] Work Phone: [phone] Erythrocyte distribution width (RBC) [Ratio] 15.9 % 11.6-14.6 [facility] Work Phone: Immature granulocytes/100 WBC (Bld) 1.500 % 0.0-0.9 [facility] Work Phone: [phone] Comment on above: IG% - Immature Granu locytes (promyelocytes, myelocytes and metamyelocytes) > 1% indicates that a LEFT SHIFT is Present. MCH (RBC) [Entitic mass] 26.2 pg 27.0-32.0 [facility] Work Phone: [phone] Nucleated RBC/100 WBC (Bld) [Ratio] 0 % 0-5 [facility] Work Phone: [phone] MCHC Auto (RBC) [Mass/Vol]on 10-26-2021 MCHC (RBC) [Mass/Vol] 30.6 g/dL 32-36 [facility] Work Phone: No Panel Informationon 10-26 Estimated Creatinine Clearance Calc 55.56 ml/min [facility] Work Phone: [phone] Estimated GFR (MDRD) Amer 71 mL/min >60 [facility] Work Phone: [phone] Comment on above: GFR Calc Estimated GFR (MDRD) Non-Af Amer 59 mL/min >60 [facility] Work Phone: [phone] Comment on above: Non- GFR Calc Platelets bldon 10-26-2021 Platelets (Bld) [#/Vol] 316 10*3/uL 150-450 [facility] Work Phone: [phone] Serum or plasma albumin yocasta urement (mass/volume)on 10-26-2021 Albumin [Mass/Vol] 2.7 g/dL 3.2-5.0 [facility] Work Phone: [phone] Serum or plasma albumin/glob ulin mass ratioon 10-26-2021 Albumin/Globulin [Mass ratio] 1.0 {ratio} 0.9-2.4 [facility] Work Phone: [phone] Serum or plasma calcium yocasta urement (mass/volume)on 10-26-2021 Calcium [Mass/Vol] 8.7 mg/dL 8.5-10.1 [facility] Work Phone: Serum or plasma creatinine m easurement (mass/volume)on 10-26-2021 Creatinine [Mass/Vol] 1.28 mg/dL 0.70-1.30 [facility] Work Phone: Comment on above: The validity of the calculated GFR & GFRAA in patients over 70 years has not been determined. Clinical correlation is essential. Serum or plasma urea nitroge n measurement (mass/volume)on 10-26-2021 Urea nitrogen [Mass/Vol] 26 mg/dL 7-18 [facility] Work Phone: Thin prep Papanicolaou smear with manual screeningon 10-26-2021 Thin prep Papanicolaou smear with manual screening 8 U/L 15-37 [facility] Work Phone: Thin prep Papanicolaou smear with manual screening 7 5-15 [facility] Work Phone: Direct bilirubinon Bilirubin.direct [Mass/Vol] 0.13 mg/dL 0.00-0.30 [facility] Work Phone: INR in Blood by Coagulation assayon 10-25-2021 INR Coag (Bld) [Relative time] 1.1 {INR} [facility] Work Phone: Laboratory - Coagulationon 0 10-25-2021 aPTT Coag (Bld) [Time] 32.7 s 24.1-36.2 [facility] Work Phone: PT Coag (PPP) [Time] 13.6 s 11.7-14.9 [facility] Work Phone: Whole blood hemoglobin A1c/t otal hemoglobin ratio (mass fraction)on 10-25-2021 HbA1c (Bld) [Mass fraction] 6.5 % 3.8-5.6 [facility] Work Phone: Comment on above: Normal < 5.7 % Predi abetic 5.7 - 6.4 % Diabetic >or= 6.5 % Please note range changes. Laboratory - Chemistry and C hemistry - challengeon 10-24-2021 Natriuretic peptide B (Bld) [Mass/Vol] 249.7 pg/mL 0-100 [facility] Work Phone: Basophil percentageon 2021 Lactate [Moles/Vol] 1.0 mmol/L 0.4-2.0 [facility]: No Panel Informationon 10-23 Troponin I High Sensitivity 10 pg/mL 3.0-78.0 [facility] Work Phone: Comment on above: Please Note: New Nicole t Units and Gender Specific Reference Ranges. For more information see Policy Stat Procedure [place] High Sensitivity Troponin (TNIH) and attachments. Absolute lymphocyte counton 10-02-2021 Lymphocytes Auto (Unsp spec) [#/Vol] 1.26 10*3/uL 0.83-4.51 [facility] Work Phone: [phone] Basophil percentageon 2021 Basophils/100 WBC (Bld) 0.9 % 0-1 [facility] Work Phone: Bilirubin [Mass/Vol] 0.30 mg/dL 0.20-1.00 [facility] Work Phone: Comment on above: For patients on eltr ombopag therapy, use of Dimension [place] TBIL is not recommended. Chloride [Moles/Vol] 110 mmol/L 98-107 [facility] Work Phone: Eosinophils/100 WBC (Bld) 12.4 % 0-5 [facility] Work Phone: Glucose [Mass/Vol] 96 mg/dL 74-106 [facility] Work Phone: Neutrophils (Bld) [#/Vol] 4.4 10*3/uL 2.0-7.7 [facility] Work Phone: Neutrophils/100 WBC (Bld) 55.3 % 47-70 [facility] Work Phone: Potassium [Moles/Vol] 3.9 mmol/L 3.5-5.1 [facility] Work Phone: Protein [Mass/Vol] 5.2 g/dL 6.4-8.2 [facility] Work Phone: [phone] Sodium [Moles/Vol] 141 mmol/L 136-145 [facility] Work Phone: [phone] WBC (Bld) [#/Vol] 8.0 10*3/uL 4.4-11.0 [facility] Work Phone: Blood erythrocytes count (nu mber/volume)on 10-02-2021 RBC (Bld) [#/Vol] 2.90 10*6/uL 4.6-6.2 [facility] Work Phone: [phone] Blood hemoglobin measurement (mass/volume)on 10-02-2021 Hemoglobin (Bld) [Mass/Vol] 8.0 g/dL 13.0-16.5 [facility] Work Phone: Blood lymphocytes/100 leukoc yteson 10-02-2021 Lymphocytes/100 WBC (Bld) 15.7 % 19-41 [facility] Work Phone: Blood monocytes/100 leukocyt eson 10-02-2021 Monocytes/100 WBC (Bld) 15.0 % 0-10 [facility] Work Phone: Blood platelet mean volumeon 10-02-2021 Platelet mean volume (Bld) [Entitic vol] 10.3 fL 6.2-12.0 [facility] Work Phone: [phone] Determination of erythrocyte mean corpuscular volume (MCV)on 10-02-2021 MCV (RBC) [Entitic vol] 89.3 fL 80-94 [facility] Work Phone: Glucose Glucometer (BldC) [M ass/Vol]on 10-02-2021 Glucose [Mass/Vol] 246 mg/dL 74-106 [facility] Work Phone: Comment on above: MANAGEMENT OF PATIEN T CARE PER NURSING PROTOCOL Hematocrit Auto (Bld) [Volum e fraction]on 10-02-2021 Hematocrit (Bld) [Volume fraction] 25.9 % 40-54 [facility] Work Phone: [phone] Laboratory - Chemistry and C hemistry - challengeon 10-02-2021 ALP [Catalytic activity/Vol] 71 U/L 45-117 [facility] Work Phone: [phone] ALT [Catalytic activity/Vol] 12 U/L 16-61 [facility] Work Phone: [phone] CO2 [Moles/Vol] 25.0 mmol/L 21.0-32.0 [facility] Work Phone: [phone] Globulin (S) [Mass/Vol] 3.0 g/dL 2.2-4.2 [facility] Work Phone: [phone] Urea nitrogen/Creatinine [Mass ratio] 22.2 mg/mg 10-20 [facility] Work Phone: [phone] Laboratory - Hematology and Cell countson 10-02-2021 Erythrocyte distribution width (RBC) [Entitic vol] 51.6 fL 35.1-43.9 [facility] Work Phone: [phone] Erythrocyte distribution width (RBC) [Ratio] 15.7 % 11.6-14.6 [facility] Work Phone: [phone] Immature granulocytes/100 WBC (Bld) 0.700 % 0.0-0.9 [facility] Work Phone: [phone] Comment on above: IG% - Immature Granu locytes (promyelocytes, myelocytes and metamyelocytes) > 1% indicates that a LEFT SHIFT is Present. MCH (RBC) [Entitic mass] 27.6 pg 27.0-32.0 [facility] Work Phone: [phone] Nucleated RBC/100 WBC (Bld) [Ratio] 0 % 0-5 [facility] Work Phone: [phone] MCHC Auto (RBC) [Mass/Vol]on 10-02-2021 MCHC (RBC) [Mass/Vol] 30.9 g/dL 32-36 [facility] Work Phone: [phone] Panel Informationon 10-02 Methicillin-Resist S.aureus DNA PCR Negative Negative [facility] Work Phone: Estimated Creatinine Clearance Calc 60.78 ml/min [facility] Work Phone: Estimated GFR (MDRD) Amer 79 mL/min >60 [facility] Work Phone: Comment on above: GFR Calc Estimated GFR (MDRD) Non-Af Amer 65 mL/min >60 [facility] Work Phone: Comment on above: Non- GFR Calc Platelets bldon 10-02-2021 Platelets (Bld) [#/Vol] 278 10*3/uL 150-450 [facility] Work Phone: Serum or plasma albumin yocasta urement (mass/volume)on 10-02-2021 Albumin [Mass/Vol] 2.2 g/dL 3.2-5.0 [facility] Work Phone: Serum or plasma albumin/glob ulin mass ratioon 10-02-2021 Albumin/Globulin [Mass ratio] 0.7 {ratio} 0.9-2.4 [facility] Work Phone: Serum or plasma calcium yocasta urement (mass/volume)on 10-02-2021 Calcium [Mass/Vol] 8.2 mg/dL 8.5-10.1 [facility] Work Phone: Serum or plasma creatinine m easurement (mass/volume)on 10-02-2021 Creatinine [Mass/Vol] 1.17 mg/dL 0.70-1.30 [facility] Work Phone: Comment on above: The validity of the calculated GFR & GFRAA in patients over 70 years has not been determined. Clinical correlation is essential. Serum or plasma urea nitroge n measurement (mass/volume)on 10-02-2021 Urea nitrogen [Mass/Vol] 26 mg/dL 7-18 [facility] Work Phone: Thin prep Papanicolaou smear with manual screeningon 10-02-2021 Thin prep Papanicolaou smear with manual screening 10 U/L 15-37 [facility] Work Phone: Thin prep Papanicolaou smear with manual screening 6 5-15 [facility] Work Phone: Whole blood hemoglobin A1c/t otal hemoglobin ratio (mass fraction)on 10-02-2021 HbA1c (Bld) [Mass fraction] 6.0 % 3.8-5.6 [facility] Work Phone: Comment on above: Normal < 5.7 % Predi abetic 5.7 - 6.4 % Diabetic >or= 6.5 % Please note range changes. Absolute lymphocyte counton 10-01-2021 Lymphocytes Auto (Unsp spec) [#/Vol] 1.71 10*3/uL 0.83-4.51 [facility] Work Phone: Basophil percentageon 2021 Basophils/100 WBC (Bld) 0.6 % 0-1 [facility] Work Phone: Chloride [Moles/Vol] 108 mmol/L 98-107 [facility] Work Phone: Eosinophils/100 WBC (Bld) 4.5 % 0-5 [facility] Work Phone: Glucose [Mass/Vol] 158 mg/dL 74-106 [facility] Work Phone: Comment on above: Fasting Glucose resu lt greater than or equal to 126 mg/dL suggests DIABETES MELLITUS per A.D.A. criteria. Lactate [Moles/Vol] 1.2 mmol/L 0.4-2.0 [facility] Work Phone: Neutrophils (Bld) [#/Vol] 9.8 10*3/uL 2.0-7.7 [facility] Work Phone: Neutrophils/100 WBC (Bld) 70.1 % 47-70 [facility] Work Phone: Potassium [Moles/Vol] 4.1 mmol/L 3.5-5.1 [facility] Work Phone: Sodium [Moles/Vol] 141 mmol/L 136-145 [facility] Work Phone: WBC (Bld) [#/Vol] 13.9 10*3/uL 4.4-11.0 [facility] Work Phone: Blood erythrocytes count (nu mber/volume)on 10-01-2021 RBC (Bld) [#/Vol] 3.29 10*6/uL 4.6-6.2 [facility] Work Phone: Blood hemoglobin measurement (mass/volume)on 10-01-2021 Hemoglobin (Bld) [Mass/Vol] 8.7 g/dL 13.0-16.5 [facility] Work Phone: Blood lymphocytes/100 leukoc yteson 10-01-2021 Lymphocytes/100 WBC (Bld) 12.3 % 19-41 [facility] Work Phone: Blood monocytes/100 leukocyt eson 10-01-2021 Monocytes/100 WBC (Bld) 11.6 % 0-10 [facility] Work Phone: Blood platelet adequacy dete ction by light microscopyon 10-01-2021 Platelets LM Ql (Bld) ADEQUATE ADEQ [facility] Work Phone: Blood platelet mean volumeon 10-01-2021 Platelet mean volume (Bld) [Entitic vol] 11.0 fL 6.2-12.0 [facility] Work Phone: Determination of erythrocyte mean corpuscular volume (MCV)on 10-01-2021 MCV (RBC) [Entitic vol] 87.2 fL 80-94 [facility] Work Phone: Hematocrit Auto (Bld) [Volum e fraction]on 10-01-2021 Hematocrit (Bld) [Volume fraction] 28.7 % 40-54 [facility] Work Phone: Laboratory - Chemistry and C hemistry - challengeon 10-01-2021 CO2 [Moles/Vol] 27.0 mmol/L 21.0-32.0 [facility] Work Phone: [phone] Natriuretic peptide B (Bld) [Mass/Vol] 244.9 pg/mL 0-100 [facility] Work Phone: [phone] Urea nitrogen/Creatinine [Mass ratio] 18.9 mg/mg 10-20 [facility] Work Phone: [phone] Laboratory - Hematology and Cell countson 10-01-2021 Erythrocyte distribution width (RBC) [Entitic vol] 49.9 fL 35.1-43.9 [facility] Work Phone: [phone] Erythrocyte distribution width (RBC) [Ratio] 15.5 % 11.6-14.6 [facility] Work Phone: [phone] Immature granulocytes/100 WBC (Bld) 0.900 % 0.0-0.9 [facility] Work Phone: [phone] Comment on above: IG% - Immature Granu locytes (promyelocytes, myelocytes and metamyelocytes) > 1% indicates that a LEFT SHIFT is Present. MCH (RBC) [Entitic mass] 26.4 pg 27.0-32.0 [facility] Work Phone: [phone] Nucleated RBC/100 WBC (Bld) [Ratio] 0 % 0-5 [facility] Work Phone: [phone] Laboratory - Microbiology an d Antimicrobial susceptibilityon 10-01-2021 SARS-CoV-2 (COVID-19) RNA JUSTIN+probe Ql (Unsp spec) Not detected Not Detect [facility] Work Phone: [phone] Comment on above: Normal Reference Ran ge: Not DetectedMethod:(RT-PCR) real-time reverse transcriptase PCRLuminex BOBBI Instrument*The Food and Drug Administration (FDA) has issued an Emergency Use Authorization (EAU) for the BOBBI SARS-CoV-2 Assay for the rapid detection of the virus that causes COVID-19. This test has been validated, but the FDAs independent review of this validation is pending.*Negative results do not preclude infection and should not be used as the sole basis for treatment or patient management. Optimum specimen types and timing for peak viral levels during infections caused by SARS-CoV-2 have not been determined. Collection of multiple specimens from the same patient may be necessary to detect the virus. The possibility of a false negative result should be considered if the patient has clinical presentation or has had recent exposure. MCHC Auto (RBC) [Mass/Vol]on 10-01-2021 MCHC (RBC) [Mass/Vol] 30.3 g/dL 32-36 [facility] Work Phone: No Panel Informationon 10-01 Estimated Creatinine Clearance Calc 48.05 ml/min [facility] Work Phone: [phone] Estimated GFR (MDRD) Amer 60 mL/min >60 [facility] Work Phone: [phone] Comment on above: GFR Calc Estimated GFR (MDRD) Non-Af Amer 50 mL/min >60 [facility] Work Phone: [phone] Comment on above: Non- GFR Calc Troponin I High Sensitivity 13 pg/mL 3.0-78.0 [facility] Work Phone: Comment on above: Please Note: New Nicole t Units and Gender Specific Reference Ranges. For more information see Policy Stat Procedure [place] High Sensitivity Troponin (TNIH) and attachments. Platelets bldon 10-01-2021 Platelets (Bld) [#/Vol] 441 10*3/uL 150-450 [facility] Work Phone: [phone] RBC morphologyon 10-01-2021 RBC morphology finding Nom (Bld) NORM C+C NORMAL NORM C&C [facility] Work Phone: Review by pathologiston Pathologist review Sohan (Unsp spec) [Interp] Josephine hair [facility] Work Phone: Pathologist review Sohan (Unsp spec) [Interp] Reviewed [facility] Work Phone: [phone] Comment on above: Previous reported re sult: Josephine hair Edited by: RGOCARLA on 10/02/21:1304Neutrophilic leukocytosis.Normocytic anemia.Clinical correlation necessary.Mc Urias M.D. 10/02/21 AMENDED REPORT 10/02/21 1304 PATH REV previously reported as: Josephine hair Serum or plasma calcium yocasta urement (mass/volume)on 10-01-2021 Calcium [Mass/Vol] 9.0 mg/dL 8.5-10.1 [facility] Work Phone: Serum or plasma creatinine m easurement (mass/volume)on 10-01-2021 Creatinine [Mass/Vol] 1.48 mg/dL 0.70-1.30 [facility] Work Phone: Comment on above: The validity of the calculated GFR & GFRAA in patients over 70 years has not been determined. Clinical correlation is essential. Serum or plasma urea nitroge n measurement (mass/volume)on 10-01-2021 Urea nitrogen [Mass/Vol] 28 mg/dL 7-18 [facility] Work Phone: Serum procalcitonin measurem enton 10-01-2021 Procalcitonin [Mass/Vol] 0.21 ng/mL 0.00-0.09 [facility] Work Phone: Comment on above: A procalcitonin (PCT ) level above 2.0 ng/mL on the first day of ICU admission is associated with a high risk for progression to severe sepsis and/or septic shock. A PCT level below 0.5 ng/mL on the first day of ICU admission is associated with a low risk for progression to severe and/or septic shock. Note: Concentrations <0.5 ng/mL do not exclude an infection on account of localized infections (without systemic signs) which can be associated with such low concentrations, or a systemic infection in its initial stages (<6 hours). Furthermore, increased procalcitonin can occur without infection. PCT concentrations between 0.5 and 2.0 ng/mL should be interpreted taking into account the patient's history. It is recommended to retest PCT within 6-24 hours if any concentrations <2 ng/mL are obtained. Thin prep Papanicolaou smear with manual screeningon 10-01-2021 Thin prep Papanicolaou smear with manual screening 6 5-15 [facility] Work Phone: Absolute lymphocyte counton 08-07-2021 Lymphocytes Auto (Unsp spec) [#/Vol] 1.59 10*3/uL 0.83-4.51 [facility] Work Phone: Basophil percentageon 2021 Basophils/100 WBC (Bld) 0.2 % 0-1 [facility] Work Phone: Chloride [Moles/Vol] 113 mmol/L 98-107 [facility] Work Phone: Eosinophils/100 WBC (Bld) 0.7 % 0-5 [facility] Work Phone: Glucose [Mass/Vol] 131 mg/dL 74-106 [facility] Work Phone: Comment on above: Fasting Glucose resu lt greater than or equal to 126 mg/dL suggests DIABETES MELLITUS per A.D.A. criteria. Neutrophils (Bld) [#/Vol] 5.5 10*3/uL 2.0-7.7 [facility] Work Phone: Neutrophils/100 WBC (Bld) 67.5 % 47-70 [facility] Work Phone: Potassium [Moles/Vol] 3.6 mmol/L 3.5-5.1 [facility] Work Phone: Sodium [Moles/Vol] 142 mmol/L 136-145 [facility] Work Phone: WBC (Bld) [#/Vol] 8.1 10*3/uL 4.4-11.0 [facility] Work Phone: Blood erythrocytes count (nu mber/volume)on 08-07-2021 RBC (Bld) [#/Vol] 2.63 10*6/uL 4.6-6.2 [facility] Work Phone: Blood hemoglobin measurement (mass/volume)on 08-07-2021 Hemoglobin (Bld) [Mass/Vol] 8.7 g/dL 13.0-16.5 [facility] Work Phone: Blood lymphocytes/100 leukoc yteson 08-07-2021 Lymphocytes/100 WBC (Bld) 19.6 % 19-41 [facility] Work Phone: Blood monocytes/100 leukocyt eson 08-07-2021 Monocytes/100 WBC (Bld) 11.6 % 0-10 [facility] Work Phone: [phone] Blood platelet mean volumeon 08-07-2021 Platelet mean volume (Bld) [Entitic vol] 10.1 fL 6.2-12.0 [facility] Work Phone: Determination of erythrocyte mean corpuscular volume (MCV)on 08-07-2021 MCV (RBC) [Entitic vol] 84.8 fL 80-94 [facility] Work Phone: Glucose Glucometer (BldC) [M ass/Vol]on 08-07-2021 Glucose [Mass/Vol] 146 mg/dL 74-106 [facility] Work Phone: Comment on above: MANAGEMENT OF PATIEN T CARE PER NURSING PROTOCOL Hematocrit Auto (Bld) [Volum e fraction]on 08-07-2021 Hematocrit (Bld) [Volume fraction] 27.3 % 40-54 [facility] Work Phone: Iron measurement (mass/mass) on 08-07-2021 Iron (Unsp spec) [Mass/Mass] 14 ug/dL 65-175 [facility] Work Phone: Laboratory - Chemistry and C hemistry - challengeon 08-07-2021 Cobalamin (Vitamin B12) [Mass/Vol] 1092 pg/mL 211-911 [facility] Work Phone: CO2 [Moles/Vol] 22.0 mmol/L 21.0-32.0 [facility] Work Phone: Urea nitrogen/Creatinine [Mass ratio] 29.4 mg/mg 10-20 [facility] Work Phone: [phone] Laboratory - Hematology and Cell countson 08-07-2021 Erythrocyte distribution width (RBC) [Entitic vol] 47.6 fL 35.1-43.9 [facility] Work Phone: [phone] Erythrocyte distribution width (RBC) [Ratio] 15.5 % 11.6-14.6 [facility] Work Phone: Immature granulocytes/100 WBC (Bld) 0.400 % 0.0-0.9 [facility] Work Phone: Comment on above: IG% - Immature Granu locytes (promyelocytes, myelocytes and metamyelocytes) > 1% indicates that a LEFT SHIFT is Present. MCH (RBC) [Entitic mass] 26.6 pg 27.0-32.0 [facility] Work Phone: Nucleated RBC/100 WBC (Bld) [Ratio] 0 % 0-5 [facility] Work Phone: MCHC Auto (RBC) [Mass/Vol]on 08-07-2021 MCHC (RBC) [Mass/Vol] 31.4 g/dL 32-36 [facility] Work Phone: No Panel Informationon 08-07 Total Iron Binding Capacity 133 ug/dL 250-450 [facility] Work Phone: Estimated Creatinine Clearance Calc 72.16 ml/min [facility] Work Phone: Estimated GFR (MDRD) Amer 126 mL/min >60 [facility] Work Phone: Comment on above: GFR Calc Estimated GFR (MDRD) Non-Af Amer 104 mL/min >60 [facility] Work Phone: Comment on above: Non- GFR Calc Platelets bldon 08-07-2021 Platelets (Bld) [#/Vol] 206 10*3/uL 150-450 [facility] Work Phone: Serum or plasma calcium yocasta urement (mass/volume)on 08-07-2021 Calcium [Mass/Vol] 5.4 mg/dL 8.5-10.1 [facility] Work Phone: Comment on above: Critical Result(s) C alled at: 06:53:34 08/07/2021 by: Van Foy. Edi Banegas RN (MS3). Results read back by same. Serum or plasma creatinine m easurement (mass/volume)on 08-07-2021 Creatinine [Mass/Vol] 0.78 mg/dL 0.70-1.30 [facility] Work Phone: [phone] Comment on above: The validity of the calculated GFR & GFRAA in patients over 70 years has not been determined. Clinical correlation is essential. Serum or plasma ferritin vasquez surement (mass/volume)on 08-07-2021 Ferritin [Mass/Vol] 301 ng/mL 26-388 [facility] Work Phone: [phone] Serum or plasma iron saturat ion measurement (mass fraction)on 08-07-2021 Iron saturation [Mass fraction] 10.5 % 15.0-55.0 [facility] [facility] Work Phone: [phone] Serum or plasma urea nitroge n measurement (mass/volume)on 08-07-2021 Urea nitrogen [Mass/Vol] 23 mg/dL 7-18 [facility] Work Phone: [phone] Thin prep Papanicolaou smear with manual screeningon 08-07-2021 Thin prep Papanicolaou smear with manual screening 7 5-15 [facility] Work Phone: [phone] Absolute lymphocyte counton 08-06-2021 Lymphocytes Auto (Unsp spec) [#/Vol] 2.34 10*3/uL 0.83-4.51 [facility] Work Phone: [phone] Basophil percentageon 2021 Basophil percentage >100 SEEN /hpf 0-5 [facility] Work Phone: [phone] Basophils/100 WBC (Bld) 0.4 % 0-1 [facility] Work Phone: [phone] Bilirubin [Mass/Vol] 0.50 mg/dL 0.20-1.00 [facility] Work Phone: [phone] Comment on above: For patients on eltr ombopag therapy, use of Dimension [place] TBIL is not recommended. Chloride [Moles/Vol] 109 mmol/L 98-107 [facility] Work Phone: [phone] Eosinophils/100 WBC (Bld) 4.9 % 0-5 [facility] Work Phone: Glucose [Mass/Vol] 104 mg/dL 74-106 [facility] Work Phone: Comment on above: Fasting Glucose resu lt from 100 to 125 mg/dL suggests IMPAIRED HOMEOSTASIS per A.D.A. criteria. Neutrophils (Bld) [#/Vol] 5.7 10*3/uL 2.0-7.7 [facility] Work Phone: Neutrophils/100 WBC (Bld) 60.6 % 47-70 [facility] Work Phone: [phone] Potassium [Moles/Vol] 3.6 mmol/L 3.5-5.1 [facility] Work Phone: Protein [Mass/Vol] 5.3 g/dL 6.4-8.2 [facility] Work Phone: Sodium [Moles/Vol] 141 mmol/L 136-145 [facility] Work Phone: WBC (Bld) [#/Vol] 9.4 10*3/uL 4.4-11.0 [facility] Work Phone: Bilirubin Test strip Ql (U)o n 08-06-2021 Bilirubin Ql (U) Negative Negative [facility] Work Phone: [phone] Blood erythrocytes count (nu mber/volume)on 08-06-2021 RBC (Bld) [#/Vol] 3.46 10*6/uL 4.6-6.2 [facility] Work Phone: Blood hemoglobin measurement (mass/volume)on 08-06-2021 Hemoglobin (Bld) [Mass/Vol] 9.4 g/dL 13.0-16.5 [facility] Work Phone: Blood lymphocytes/100 leukoc yteson 08-06-2021 Lymphocytes/100 WBC (Bld) 24.8 % 19-41 [facility] Work Phone: Blood monocytes/100 leukocyt eson 08-06-2021 Monocytes/100 WBC (Bld) 8.8 % 0-10 [facility] Work Phone: [phone] Blood platelet mean volumeon 08-06-2021 Platelet mean volume (Bld) [Entitic vol] 10.4 fL 6.2-12.0 [facility] Work Phone: [phone] Determination of erythrocyte mean corpuscular volume (MCV)on 08-06-2021 MCV (RBC) [Entitic vol] 85.0 fL 80-94 [facility] Work Phone: [phone] Direct bilirubinon Bilirubin.direct [Mass/Vol] 0.22 mg/dL 0.00-0.30 [facility] Work Phone: [phone] Glucose Glucometer (BldC) [M ass/Vol]on 08-06-2021 Glucose [Mass/Vol] 109 mg/dL 74-106 [facility] Work Phone: [phone] Comment on above: MANAGEMENT OF PATIEN T CARE PER NURSING PROTOCOL Hematocrit Auto (Bld) [Volum e fraction]on 08-06-2021 Hematocrit (Bld) [Volume fraction] 29.4 % 40-54 [facility] Work Phone: [phone] Ketones Test strip Ql (U)on 08-06-2021 Ketones Ql (U) Negative Negative [facility] Work Phone: Laboratory - Chemistry and C hemistry - challengeon 08-06-2021 ALP [Catalytic activity/Vol] 96 U/L 45-117 [facility] Work Phone: ALT [Catalytic activity/Vol] 14 U/L 16-61 [facility] Work Phone: [phone] CO2 [Moles/Vol] 25.0 mmol/L 21.0-32.0 [facility] Work Phone: [phone] Globulin (S) [Mass/Vol] 3.1 g/dL 2.2-4.2 [facility] Work Phone: [phone] Urea nitrogen/Creatinine [Mass ratio] 20.4 mg/mg 10-20 [facility] Work Phone: [phone] Laboratory - Hematology and Cell countson 08-06-2021 Erythrocyte distribution width (RBC) [Entitic vol] 48.0 fL 35.1-43.9 [facility] Work Phone: [phone] Erythrocyte distribution width (RBC) [Ratio] 15.5 % 11.6-14.6 [facility] Work Phone: [phone] Immature granulocytes/100 WBC (Bld) 0.500 % 0.0-0.9 [facility] Work Phone: [phone] Comment on above: IG% - Immature Granu locytes (promyelocytes, myelocytes and metamyelocytes) > 1% indicates that a LEFT SHIFT is Present. MCH (RBC) [Entitic mass] 27.2 pg 27.0-32.0 [facility] Work Phone: [phone] Nucleated RBC/100 WBC (Bld) [Ratio] 0 % 0-5 [facility] Work Phone: [phone] MCHC Auto (RBC) [Mass/Vol]on 08-06-2021 MCHC (RBC) [Mass/Vol] 32.0 g/dL 32-36 [facility] Work Phone: [phone] Mucus LM Ql (Urine sed)on Mucus Ql (Urine sed) 0 SEEN /hpf [facility] Work Phone: [phone] Nitrite Test strip Ql (U)on 08-06-2021 Nitrite Ql (U) Negative Negative [facility] Work Phone: [phone] Panel Informationon 08-06 Streptococcus pneumoniae Antigen (M [facility] Work Phone: [phone] Respiratory Panel (PCR) Rhinovirus [facility] Work Phone: [phone] Ionized Calcium 3.5 mg/dL 4.5-5.6 [facility] Work Phone: [phone] Comment on above: Performed at: [address] [id number] Director: Elder Sweet PhD, Phone: [phone] Estimated Creatinine Clearance Calc 66.82 ml/min [facility] Work Phone: [phone] Estimated GFR (MDRD) Amer 87 mL/min >60 [facility] Work Phone: Comment on above: GFR Calc Estimated GFR (MDRD) Non-Af Amer 72 mL/min >60 [facility] Work Phone: Comment on above: Non- GFR Calc Platelets bldon 08-06-2021 Platelets (Bld) [#/Vol] 332 10*3/uL 150-450 [facility] Work Phone: Protein Test strip Ql (U)on 08-06-2021 Protein Ql (U) 15 mg/dl Negative [facility] Work Phone: Serum or plasma albumin yocasta urement (mass/volume)on 08-06-2021 Albumin [Mass/Vol] 2.2 g/dL 3.2-5.0 [facility] Work Phone: Serum or plasma calcium yocasta urement (mass/volume)on 08-06-2021 Calcium [Mass/Vol] 6.1 mg/dL 8.5-10.1 [facility] Work Phone: Comment on above: Critical Result(s) C alled at: 13:19:46 08/06/2021 by: Sharyn Shay. Results read back by same. Serum or plasma creatinine m easurement (mass/volume)on 08-06-2021 Creatinine [Mass/Vol] 1.08 mg/dL 0.70-1.30 [facility] Work Phone: Comment on above: The validity of the calculated GFR & GFRAA in patients over 70 years has not been determined. Clinical correlation is essential. Serum or plasma urea nitroge n measurement (mass/volume)on 08-06-2021 Urea nitrogen [Mass/Vol] 22 mg/dL 7-18 [facility] Work Phone: Squamous epithelial cells de tection in urine sediment by light microscopyon 08-06-2021 Epithelial cells.squamous LM Ql (Urine sed) 0-5 SEEN /hpf 0-5 [facility] Work Phone: Thin prep Papanicolaou smear with manual screeningon 08-06-2021 Thin prep Papanicolaou smear with manual screening 17 U/L 15-37 [facility] Work Phone: Thin prep Papanicolaou smear with manual screening 7 5-15 [facility] Work Phone: Urine blood detectionon 07-25 RBC Ql (U) 25 /ul Negative [facility] Work Phone: RBC Ql (U) 5-10 SEEN /hpf 0-5 [facility] Work Phone: Urine clarityon 08-06-2021 Clarity (U) Sl. Cloudy Clear [facility] Work Phone: Urine color determinationon 08-06-2021 Color (U) Yellow Yellow [facility] Work Phone: Urine glucose detectionon Glucose Ql (U) Normal mg/dl Normal [facility] Work Phone: Urine leukocyte esterase det ection by dipstickon 08-06-2021 Leukocyte esterase Test strip Ql (U) 500 /ul Negative [facility] Work Phone: Urine pHon 08-06-2021 pH (U) 6.0 [pH] 5.0 - 8.0 [facility] Work Phone: Urine sediment bacteria coun t by microscopy (number/high power field)on 08-06-2021 Bacteria LM.HPF (Urine sed) [#/Area] 1 /[HPF] None Seen [facility] Work Phone: Urine sediment yeast count b y microscopy (number/high powered field)on 08-06-2021 Yeast LM.HPF (Urine sed) [#/Area] 4 /[HPF] None Seen [facility] Work Phone: Urine specific gravity measu rementon 08-06-2021 Specific gravity (U) [Rel density] 1.015 1.002-1.030 [facility] Work Phone: Urobilinogen Auto test strip Ql (U)on 08-06-2021 Urobilinogen Ql (U) Normal mg/dl Normal [facility] Work Phone: Absolute lymphocyte counton 08-01-2021 Lymphocytes Auto (Unsp spec) [#/Vol] 0.92 10*3/uL 0.83-4.51 [facility] Work Phone: Basophil percentageon 2021 Basophils/100 WBC (Bld) 0.3 % 0-1 [facility] Work Phone: Bilirubin [Mass/Vol] 0.60 mg/dL 0.20-1.00 [facility] Work Phone: Comment on above: For patients on eltr ombopag therapy, use of Dimension [place] TBIL is not recommended. Chloride [Moles/Vol] 106 mmol/L 98-107 [facility] Work Phone: Eosinophils/100 WBC (Bld) 4.0 % 0-5 [facility] Work Phone: [phone] Glucose [Mass/Vol] 146 mg/dL 74-106 [facility] Work Phone: Comment on above: Fasting Glucose resu lt greater than or equal to 126 mg/dL suggests DIABETES MELLITUS per A.D.A. criteria. Neutrophils (Bld) [#/Vol] 8.0 10*3/uL 2.0-7.7 [facility] Work Phone: Neutrophils/100 WBC (Bld) 77.1 % 47-70 [facility] Work Phone: [phone] Potassium [Moles/Vol] 3.5 mmol/L 3.5-5.1 [facility] Work Phone: Protein [Mass/Vol] 5.4 g/dL 6.4-8.2 [facility] Work Phone: Sodium [Moles/Vol] 141 mmol/L 136-145 [facility] Work Phone: [phone] Comment on above: Critical Result(s) C alled at: 16:03:59 08/01/2021 by: Michael Aldana. Results read back by same. WBC (Bld) [#/Vol] 10.4 10*3/uL 4.4-11.0 [facility] Work Phone: Blood erythrocytes count (nu mber/volume)on 08-01-2021 RBC (Bld) [#/Vol] 3.62 10*6/uL 4.6-6.2 [facility] Work Phone: Blood hemoglobin measurement (mass/volume)on 08-01-2021 Hemoglobin (Bld) [Mass/Vol] 9.8 g/dL 13.0-16.5 [facility] Work Phone: Blood lymphocytes/100 leukoc yteson 08-01-2021 Lymphocytes/100 WBC (Bld) 8.9 % 19-41 [facility] Work Phone: Blood monocytes/100 leukocyt eson 08-01-2021 Monocytes/100 WBC (Bld) 7.5 % 0-10 [facility] Work Phone: Blood platelet mean volumeon 08-01-2021 Platelet mean volume (Bld) [Entitic vol] 10.9 fL 6.2-12.0 [facility] Work Phone: Determination of erythrocyte mean corpuscular volume (MCV)on 08-01-2021 MCV (RBC) [Entitic vol] 85.4 fL 80-94 [facility] Work Phone: Hematocrit Auto (Bld) [Volum e fraction]on 08-01-2021 Hematocrit (Bld) [Volume fraction] 30.9 % 40-54 [facility] Work Phone: Laboratory - Chemistry and C hemistry - challengeon 08-01-2021 ALP [Catalytic activity/Vol] 92 U/L 45-117 [facility] Work Phone: ALT [Catalytic activity/Vol] 19 U/L 16-61 [facility] Work Phone: CO2 [Moles/Vol] 22.0 mmol/L 21.0-32.0 [facility] Work Phone: Globulin (S) [Mass/Vol] 2.9 g/dL 2.2-4.2 [facility] Work Phone: [phone] Urea nitrogen/Creatinine [Mass ratio] 20.6 mg/mg 10-20 [facility] Work Phone: [phone] Laboratory - Hematology and Cell countson 08-01-2021 Erythrocyte distribution width (RBC) [Entitic vol] 49.0 fL 35.1-43.9 [facility] Work Phone: [phone] Erythrocyte distribution width (RBC) [Ratio] 15.6 % 11.6-14.6 [facility] Work Phone: [phone] Immature granulocytes/100 WBC (Bld) 2.200 % 0.0-0.9 [facility] Work Phone: [phone] Comment on above: IG% - Immature Granu locytes (promyelocytes, myelocytes and metamyelocytes) > 1% indicates that a LEFT SHIFT is Present. MCH (RBC) [Entitic mass] 27.1 pg 27.0-32.0 [facility] Work Phone: [phone] Nucleated RBC/100 WBC (Bld) [Ratio] 0 % 0-5 [facility] Work Phone: [phone] MCHC Auto (RBC) [Mass/Vol]on 08-01-2021 MCHC (RBC) [Mass/Vol] 31.7 g/dL 32-36 [facility] Work Phone: [phone] Panel Informationon 08-01 Estimated GFR (MDRD) Amer 87 mL/min >60 [facility] Work Phone: [phone] Comment on above: GFR Calc Estimated GFR (MDRD) Non-Af Amer 72 mL/min >60 [facility] Work Phone: [phone] Comment on above: Non- GFR Calc Platelets bldon 08-01-2021 Platelets (Bld) [#/Vol] 314 10*3/uL 150-450 [facility] Work Phone: [phone] Serum or plasma albumin yocasta urement (mass/volume)on 08-01-2021 Albumin [Mass/Vol] 2.5 g/dL 3.2-5.0 [facility] Work Phone: [phone] Serum or plasma albumin/glob ulin mass ratioon 08-01-2021 Albumin/Globulin [Mass ratio] 0.9 {ratio} 0.9-2.4 [facility] Work Phone: [phone] Serum or plasma calcium yocasta urement (mass/volume)on 08-01-2021 Calcium [Mass/Vol] 6.2 mg/dL 8.5-10.1 [facility] Work Phone: [phone] Serum or plasma creatinine m easurement (mass/volume)on 08-01-2021 Creatinine [Mass/Vol] 1.07 mg/dL 0.70-1.30 [facility] Work Phone: Comment on above: The validity of the calculated GFR & GFRAA in patients over 70 years has not been determined. Clinical correlation is essential. Serum or plasma urea nitroge n measurement (mass/volume)on 08-01-2021 Urea nitrogen [Mass/Vol] 22 mg/dL 7-18 [facility] Work Phone: Thin prep Papanicolaou smear with manual screeningon 08-01-2021 Thin prep Papanicolaou smear with manual screening 20 U/L 15-37 [facility] Work Phone: Thin prep Papanicolaou smear with manual screening 13 5-15 [facility] Work Phone: Basophil percentageon 2021 Basophil percentage 104 mg/dL 74-106 [facility] Work Phone: Basophil percentage 141 mmol/L 136-145 [facility] Work Phone: Basophil percentage 4.3 mmol/L 3.5-5.1 [facility] Work Phone: Basophil percentage 110 mmol/L 98-107 [facility] Work Phone: Basophils (Bld) [#/Vol] 6.6 10*3/uL 4.4-11.0 [facility] Work Phone: [phone] Chloride [Moles/Vol] 110 mmol/L 98-107 [facility] Work Phone: [phone] Glucose [Mass/Vol] 104 mg/dL 74-106 [facility] Work Phone: [phone] Comment on above: Fasting Glucose resu lt from 100 to 125 mg/dL suggests IMPAIRED HOMEOSTASIS per A.D.A. criteria. Potassium [Moles/Vol] 4.3 mmol/L 3.5-5.1 [facility] Work Phone: [phone] Sodium [Moles/Vol] 141 mmol/L 136-145 [facility] Work Phone: [phone] WBC (Bld) [#/Vol] 6.6 10*3/uL 4.4-11.0 [facility] Work Phone: [phone] Blood erythrocytes count (nu mber/volume)on 06-15-2021 RBC (Bld) [#/Vol] 3.14 10*6/uL 4.6-6.2 [facility] Work Phone: [phone] Blood hemoglobin measurement (mass/volume)on 06-15-2021 Hemoglobin (Bld) [Mass/Vol] 8.5 g/dL 13.0-16.5 [facility] Work Phone: [phone] Blood platelet mean volumeon 06-15-2021 Platelet mean volume (Bld) [Entitic vol] 10.0 fL 6.2-12.0 [facility] Work Phone: [phone] Determination of erythrocyte mean corpuscular volume (MCV)on 06-15-2021 MCV (RBC) [Entitic vol] 86.0 fL 80-94 [facility] Work Phone: [phone] Hematocrit Auto (Bld) [Volum e fraction]on 06-15-2021 Hematocrit (Bld) [Volume fraction] 27.0 % 40-54 [facility] Work Phone: [phone] Laboratory - Chemistry and C hemistry - challengeon 06-15-2021 CO2 [Moles/Vol] 25.0 mmol/L 21.0-32.0 [facility] Work Phone: Urea nitrogen/Creatinine [Mass ratio] 20.2 mg/mg 10- [facility] Work Phone: [phone] Laboratory - Hematology and Cell countson 06-15-2021 Erythrocyte distribution width (RBC) [Entitic vol] 62.9 fL 35.1-43.9 [facility] Work Phone: [phone] Erythrocyte distribution width (RBC) [Ratio] 20.0 % 11.6-14.6 [facility] Work Phone: [phone] MCH (RBC) [Entitic mass] 27.1 pg 27.0-32.0 [facility] Work Phone: [phone] MCHC Auto (RBC) [Mass/Vol]on 06-15-2021 MCHC (RBC) [Mass/Vol] 31.5 g/dL 32-36 [facility] Work Phone: No Panel Informationon 06-15 Estimated GFR (MDRD) Amer 90 mL/min >60 [facility] Work Phone: Comment on above: GFR Calc Estimated GFR (MDRD) Non-Af Amer 75 mL/min >60 [facility] Work Phone: Comment on above: Non- GFR Calc 27.1 pg 27.0-32.0 [facility] Work Phone: 20.0 % 11.6-14.6 [facility] Work Phone: [phone] 62.9 fl 35.1-43.9 [facility] Work Phone: [phone] 75 mL/min >60 [facility] Work Phone: [phone] 90 mL/min >60 [facility] Work Phone: 20.2 RATIO 10- [facility] Work Phone: [phone] 25.0 mmol/L 21.0-32.0 [facility] Work Phone: Platelets bldon 06-15-2021 Platelets (Bld) [#/Vol] 357 10*3/uL 150-450 [facility] Work Phone: Serum or plasma calcium yocasta urement (mass/volume)on 06-15-2021 Calcium [Mass/Vol] 7.6 mg/dL 8.5-10.1 [facility] Work Phone: Serum or plasma creatinine m easurement (mass/volume)on 06-15-2021 Creatinine [Mass/Vol] 1.04 mg/dL 0.70-1.30 [facility] Work Phone: Comment on above: The validity of the calculated GFR & GFRAA in patients over 70 years has not been determined. Clinical correlation is essential. Serum or plasma urea nitroge n measurement (mass/volume)on 06-15-2021 Urea nitrogen [Mass/Vol] 21 mg/dL 7-18 [facility] Work Phone: Thin prep Papanicolaou smear with manual screeningon 06-15-2021 Thin prep Papanicolaou smear with manual screening 6 5-15 [facility] Work Phone: Glucose Glucometer (BldC) [M ass/Vol]on 05-18-2021 Glucose [Mass/Vol] 103 mg/dL 74-106 [facility] Work Phone: Comment on above: MANAGEMENT OF PATIEN T CARE PER NURSING PROTOCOL Absolute lymphocyte counton 05-12-2021 Lymphocytes Auto (Unsp spec) [#/Vol] 1.07 10*3/uL 0.83-4.51 [facility] Work Phone: Basophil percentageon 2021 Basophil percentage Not Reportable [facility] Work Phone: Basophil percentage 112 mg/dL 74-106 [facility] Work Phone: Basophil percentage 142 mmol/L 136-145 [facility] Work Phone: Basophil percentage 3.8 mmol/L 3.5-5.1 [facility] Work Phone: Basophil percentage 112 mmol/L 98-107 [facility] Work Phone: Basophils (Bld) [#/Vol] 6.7 10*3/uL 4.4-11.0 [facility] Work Phone: Basophils (Bld) [#/Vol] 4.2 10*3/uL 2.0-7.7 [facility] Work Phone: Chloride [Moles/Vol] 112 mmol/L 98-107 [facility] Work Phone: Glucose [Mass/Vol] 112 mg/dL 74-106 [facility] Work Phone: Comment on above: Fasting Glucose resu lt from 100 to 125 mg/dL suggests IMPAIRED HOMEOSTASIS per A.D.A. criteria. Neutrophils (Bld) [#/Vol] 4.2 10*3/uL 2.0-7.7 [facility] Work Phone: Potassium [Moles/Vol] 3.8 mmol/L 3.5-5.1 [facility] Work Phone: Sodium [Moles/Vol] 142 mmol/L 136-145 [facility] Work Phone: WBC (Bld) [#/Vol] 6.7 10*3/uL 4.4-11.0 [facility] Work Phone: Blood band neutrophil count as percentage of total leukocyteson 05-12-2021 Band form neutrophils/100 WBC (Bld) 2 % 0-5 [facility] Work Phone: Blood eosinophils/100 leukoc yteson 05-12-2021 Eosinophils/100 WBC (Bld) 3 % 0-5 [facility] Work Phone: Blood erythrocytes count (nu mber/volume)on 05-12-2021 RBC (Bld) [#/Vol] 3.52 10*6/uL 4.6-6.2 [facility] Work Phone: Blood hemoglobin measurement (mass/volume)on 05-12-2021 Hemoglobin (Bld) [Mass/Vol] 9.5 g/dL 13.0-16.5 [facility] Work Phone: Blood lymphocytes/100 leukoc yteson 05-12-2021 Lymphocytes/100 WBC (Bld) 16 % 19-41 [facility] Work Phone: Blood metamyelocytes/100 dangelo kocyteson 05-12-2021 Metamyelocytes/100 WBC (Bld) 4 % 0-1 [facility] Work Phone: Blood monocytes/100 leukocyt eson 05-12-2021 Monocytes/100 WBC (Bld) 10 % 0-10 [facility] Work Phone: Blood platelet adequacy dete ction by light microscopyon 05-12-2021 Platelets LM Ql (Bld) ADEQUATE ADEQ [facility] Work Phone: Blood platelet mean volumeon 05-12-2021 Platelet mean volume (Bld) [Entitic vol] 10.2 fL 6.2-12.0 [facility] Work Phone: Blood segmented neutrophils/ 100 leukocyteson 05-12-2021 Segmented neutrophils/100 WBC (Bld) 61 % 47-70 [facility] Work Phone: Determination of erythrocyte mean corpuscular volume (MCV)on 05-12-2021 MCV (RBC) [Entitic vol] 83.0 fL 80-94 [facility] Work Phone: [phone] Hematocrit Auto (Bld) [Volum e fraction]on 05-12-2021 Hematocrit (Bld) [Volume fraction] 29.2 % 40-54 [facility] Work Phone: Laboratory - Chemistry and C hemistry - challengeon 05-12-2021 CO2 [Moles/Vol] 26.0 mmol/L 21.0-32.0 [facility] Work Phone: Urea nitrogen/Creatinine [Mass ratio] 13.8 mg/mg 10-20 [facility] Work Phone: Laboratory - Hematology and Cell countson 05-12-2021 Anisocytosis Ql (Bld) 1+ [facility] Work Phone: Erythrocyte distribution width (RBC) [Entitic vol] 52.5 fL 35.1-43.9 [facility] Work Phone: [phone] Erythrocyte distribution width (RBC) [Ratio] 17.8 % 11.6-14.6 [facility] Work Phone: [phone] MCH (RBC) [Entitic mass] 27.0 pg 27.0-32.0 [facility] Work Phone: [phone] Myelocytes/100 WBC (Bld) 4 % 0-0 [facility] Work Phone: [phone] MCHC Auto (RBC) [Mass/Vol]on 05-12-2021 MCHC (RBC) [Mass/Vol] 32.5 g/dL 32-36 [facility] Work Phone: [phone] No Panel Informationon 05-12 Estimated Creatinine Clearance Calc 67.91 ml/min [facility] Work Phone: [phone] Estimated GFR (MDRD) Amer 80 mL/min >60 [facility] Work Phone: [phone] Comment on above: GFR Calc Estimated GFR (MDRD) Non-Af Amer 66 mL/min >60 [facility] Work Phone: Comment on above: Non- GFR Calc 27.0 pg 27.0-32.0 [facility] Work Phone: [phone] 17.8 % 11.6-14.6 [facility] Work Phone: [phone] 52.5 fl 35.1-43.9 [facility] Work Phone: 4 % 0-0 [facility] Work Phone: 1+ [facility] Work Phone: 66 mL/min >60 [facility] Work Phone: 80 mL/min >60 [facility] Work Phone: 67.91 ml/min [facility] Work Phone: 13.8 RATIO 10-20 [facility] Work Phone: 26.0 mmol/L 21.0-32.0 [facility] Work Phone: Platelets bldon 05-12-2021 Platelets (Bld) [#/Vol] 443 10*3/uL 150-450 [facility] Work Phone: Review by pathologiston 04-24 Pathologist review Sohan (Unsp spec) [Interp] Reviewed [facility] Work Phone: Comment on above: Previous reported re sult: Josephine hair Edited by: RGOCARLA on 05/14/21:1437Normocytic anemia.Neutrophilic left shift.Clinical correlation necessary.Mc Urias M.D. 05/14/21 AMENDED REPORT 05/14/21 [id number] PATH REV previously reported as: Josephine hair Serum or plasma calcium yocasta urement (mass/volume)on 05-12-2021 Calcium [Mass/Vol] 8.2 mg/dL 8.5-10.1 [facility] Work Phone: Serum or plasma creatinine m easurement (mass/volume)on 05-12-2021 Creatinine [Mass/Vol] 1.16 mg/dL 0.70-1.30 [facility] Work Phone: Comment on above: The validity of the calculated GFR & GFRAA in patients over 70 years has not been determined. Clinical correlation is essential. Serum or plasma urea nitroge n measurement (mass/volume)on 05-12-2021 Urea nitrogen [Mass/Vol] 16 mg/dL 7-18 [facility] Work Phone: Thin prep Papanicolaou smear with manual screeningon 05-12-2021 Thin prep Papanicolaou smear with manual screening 1+ [facility] Work Phone: Thin prep Papanicolaou smear with manual screening 4 5-15 [facility] Work Phone: Total cell counton 2 Cells counted Mol[employer] (Bld/Tiss) [#] 100 MANUAL DIFF [facility] Work Phone: Basophil percentageon 2021 Basophils/100 WBC (Bld) 3.0 % 0-5 [facility] Work Phone: [phone] Basophils/100 WBC (Bld) 0.4 % 0-1 [facility] Work Phone: Eosinophils/100 WBC (Bld) 3.0 % 0-5 [facility] Work Phone: Blood lymphocytes/100 leukoc yteson 05-05-2021 Lymphocytes/100 WBC (Bld) 14.8 % 19-41 [facility] Work Phone: Blood monocytes/100 leukocyt eson 05-05-2021 Monocytes/100 WBC (Bld) 10.8 % 0-10 [facility] Work Phone: Laboratory - Hematology and Cell countson 05-05-2021 Immature granulocytes/100 WBC (Bld) 2.800 % 0.0-0.9 [facility] Work Phone: Comment on above: IG% - Immature Granu locytes (promyelocytes, myelocytes and metamyelocytes) > 1% indicates that a LEFT SHIFT is Present. Nucleated RBC/100 WBC (Bld) [Ratio] 0 % 0-5 [facility] Work Phone: No Panel Informationon 05-05 2.800 % 0.0-0.9 [facility] Work Phone: 0 % 0-5 [facility] Work Phone: Absolute lymphocyte counton 05-04-2021 Lymphocytes Auto (Unsp spec) [#/Vol] 0.59 10*3/uL 0.83-4.51 [facility] Work Phone: Basophil percentageon 2021 Basophils (Bld) [#/Vol] 4.9 10*3/uL 4.4-11.0 [facility] Work Phone: Basophils (Bld) [#/Vol] 3.6 10*3/uL 2.0-7.7 [facility] Work Phone: Basophils/100 WBC (Bld) 72.2 % 47-70 [facility] Work Phone: Basophils/100 WBC (Bld) 3.6 % 0-5 [facility] Work Phone: Basophils/100 WBC (Bld) 0.4 % 0-1 [facility] Work Phone: Eosinophils/100 WBC (Bld) 3.6 % 0-5 [facility] Work Phone: Neutrophils (Bld) [#/Vol] 3.6 10*3/uL 2.0-7.7 [facility] Work Phone: Neutrophils/100 WBC (Bld) 72.2 % 47-70 [facility] Work Phone: WBC (Bld) [#/Vol] 4.9 10*3/uL 4.4-11.0 [facility] Work Phone: Blood erythrocytes count (nu mber/volume)on 05-04-2021 RBC (Bld) [#/Vol] 3.13 10*6/uL 4.6-6.2 [facility] Work Phone: Blood hemoglobin measurement (mass/volume)on 05-04-2021 Hemoglobin (Bld) [Mass/Vol] 8.3 g/dL 13.0-16.5 [facility] Work Phone: Blood lymphocytes/100 leukoc yteson 05-04-2021 Lymphocytes/100 WBC (Bld) 11.9 % 19-41 [facility] Work Phone: Blood manual differential co mment interpretation (narrative result)on 05-04-2021 Manual differential comment Sohan (Bld) [Interp] SCANNED [facility] Work Phone: Blood monocytes/100 leukocyt eson 05-04-2021 Monocytes/100 WBC (Bld) 9.9 % 0-10 [facility] Work Phone: Blood platelet mean volumeon 05-04-2021 Platelet mean volume (Bld) [Entitic vol] 10.0 fL 6.2-12.0 [facility] Work Phone: [phone] Determination of erythrocyte mean corpuscular volume (MCV)on 05-04-2021 MCV (RBC) [Entitic vol] 83.4 fL 80-94 [facility] Work Phone: [phone] Glucose Glucometer (BldC) [M ass/Vol]on 05-04-2021 Glucose [Mass/Vol] 126 mg/dL 74-106 [facility]: [phone] Comment on above: MANAGEMENT OF PATIEN T CARE PER NURSING PROTOCOL Gram stain for investigation of transfusion reactionon 05-04-2021 Microscopic observation Gram stain Nom (Unsp spec) [facility] Work Phone: [phone] Hematocrit Auto (Bld) [Volum e fraction]on 05-04-2021 Hematocrit (Bld) [Volume fraction] 26.1 % 40-54 [facility] Work Phone: [phone] Laboratory - Hematology and Cell countson 05-04-2021 Erythrocyte distribution width (RBC) [Entitic vol] 53.6 fL 35.1-43.9 [facility] Work Phone: [phone] Erythrocyte distribution width (RBC) [Ratio] 17.7 % 11.6-14.6 [facility] Work Phone: [phone] Immature granulocytes/100 WBC (Bld) 2.000 % 0.0-0.9 [facility] Work Phone: [phone] Comment on above: IG% - Immature Granu locytes (promyelocytes, myelocytes and metamyelocytes) > 1% indicates that a LEFT SHIFT is Present. MCH (RBC) [Entitic mass] 26.5 pg 27.0-32.0 [facility] Work Phone: [phone] Nucleated RBC/100 WBC (Bld) [Ratio] 0 % 0-5 [facility] Work Phone: [phone] MCHC Auto (RBC) [Mass/Vol]on 05-04-2021 MCHC (RBC) [Mass/Vol] 31.8 g/dL 32-36 [facility] Work Phone: No Panel Informationon 05-04 26.5 pg 27.0-32.0 [facility] Work Phone: [phone] 17.7 % 11.6-14.6 [facility] Work Phone: [phone] 53.6 fl 35.1-43.9 [facility] Work Phone: [phone] 2.000 % 0.0-0.9 [facility] Work Phone: [phone] 0 % 0-5 [facility] Work Phone: [phone] Platelets bldon 05-04-2021 Platelets (Bld) [#/Vol] 389 10*3/uL 150-450 [facility] Work Phone: [phone] Basophil percentageon 2021 Basophil percentage 45 mg/dL 74-106 [facility] Work Phone: [phone] Basophil percentage 4.6 g/dL 6.4-8.2 [facility] Work Phone: [phone] Basophil percentage 0.30 mg/dL 0.20-1.00 [facility] Work Phone: [phone] Basophil percentage 147 mmol/L 136-145 [facility] Work Phone: [phone] Basophil percentage 3.2 mmol/L 3.5-5.1 [facility] Work Phone: [phone] Basophil percentage 118 mmol/L 98-107 [facility] Work Phone: [phone] Bilirubin [Mass/Vol] 0.30 mg/dL 0.20-1.00 [facility] Work Phone: [phone] Comment on above: For patients on eltr ombopag therapy, use of Dimension [place] TBIL is not recommended. Chloride [Moles/Vol] 118 mmol/L 98-107 [facility] Work Phone: Glucose [Mass/Vol] 45 mg/dL 74-106 [facility] Work Phone: [phone] Comment on above: Glucose result less than 50 mg/dL suggests HYPOGLYCEMIA. Potassium [Moles/Vol] 3.2 mmol/L 3.5-5.1 [place] [address] [facility] Work Phone: Protein [Mass/Vol] 4.6 g/dL 6.4-8.2 [place] [facility] Work Phone: Sodium [Moles/Vol] 147 mmol/L 136-145 [place] [facility] Work Phone: Laboratory - Chemistry and C hemistry - challengeon 05-03-2021 ALP [Catalytic activity/Vol] 55 U/L 45-117 [facility] Work Phone: ALT [Catalytic activity/Vol] 23 U/L 16-61 [facility] Work Phone: CO2 [Moles/Vol] 23.0 mmol/L 21.0-32.0 [facility] Work Phone: Globulin (S) [Mass/Vol] 3.3 g/dL 2.2-4.2 [facility] Work Phone: Urea nitrogen/Creatinine [Mass ratio] 12.6 mg/mg 12-13 [facility] Work Phone: No Panel Informationon 05-03 Estimated Creatinine Clearance Calc 51.82 ml/min [facility] Work Phone: Estimated GFR (MDRD) Amer 67 mL/min >60 [facility] Work Phone: Comment on above: GFR Calc Estimated GFR (MDRD) Non-Af Amer 55 mL/min >60 [facility] Work Phone: Comment on above: Non- GFR Calc 55 mL/min >60 [facility] Work Phone: 67 mL/min >60 [facility] Work Phone: 51.82 ml/min [facility] Work Phone: 12.6 RATIO - [facility] Work Phone: 3.3 g/dL 2.2-4.2 [facility] Work Phone: 55 U/L 45-117 [facility] Work Phone: [phone] 23 U/L 16-61 [facility] Work Phone: [phone] 23.0 mmol/L 21.0-32.0 [facility] Work Phone: [phone] Serum or plasma albumin yocasta urement (mass/volume)on 05-03-2021 Albumin [Mass/Vol] 1.3 g/dL 3.2-5.0 [facility] Work Phone: [phone] Serum or plasma albumin/glob ulin mass ratioon 05-03-2021 Albumin/Globulin [Mass ratio] 0.4 {ratio} 0.9-2.4 [facility] Work Phone: [phone] Serum or plasma calcium yocasta urement (mass/volume)on 05-03-2021 Calcium [Mass/Vol] 7.1 mg/dL 8.5-10.1 [facility] Work Phone: [phone] Serum or plasma creatinine m easurement (mass/volume)on 05-03-2021 Creatinine [Mass/Vol] 1.35 mg/dL 0.70-1.30 [facility] Work Phone: [phone] Comment on above: The validity of the calculated GFR & GFRAA in patients over 70 years has not been determined. Clinical correlation is essential. Serum or plasma urea nitroge n measurement (mass/volume)on 05-03-2021 Urea nitrogen [Mass/Vol] 17 mg/dL 7-18 [facility] Work Phone: [phone] Thin prep Papanicolaou smear with manual screeningon 05-03-2021 Thin prep Papanicolaou smear with manual screening 32 U/L 15-37 [facility] Work Phone: [phone] Thin prep Papanicolaou smear with manual screening 6 5-15 [facility] Work Phone: Basophil percentageon 2021 Basophil percentage 1.1 mmol/L 0.4-2.0 [facility] Work Phone: [phone] Lactate [Moles/Vol] 1.1 mmol/L 0.4-2.0 [facility] Work Phone: Blood santi cells detection b y light microscopyon 05-01-2021 Santi cells LM Ql (Bld) RARE [facility] Work Phone: Hemoglobin in reticulocytes (mass per reticulocyte)on 05-01-2021 Hemoglobin (Reticulocytes) [Entitic mass] 25.1 pg 30-35 [facility] Work Phone: Iron measurement (mass/mass) on 05-01-2021 Iron (Unsp spec) [Mass/Mass] 15 ug/dL 65-175 [facility] Work Phone: Laboratory - Chemistry and C hemistry - challengeon 05-01-2021 Cobalamin (Vitamin B12) [Mass/Vol] 1806 pg/mL 211-911 [facility] Work Phone: [phone] Laboratory - Coagulationon 0 05-01-2021 aPTT Coag (Bld) [Time] 72.5 s 24.1-36.2 [facility] Work Phone: Laboratory - Hematology and Cell countson 05-01-2021 Anisocytosis Ql (Bld) 1+ [facility] Work Phone: Laboratory - Microbiology an d Antimicrobial susceptibilityon 05-01-2021 Bacteria identified Cx Nom (Bld) No growth in 5 days. [facility] Work Phone: Lower GI hemoglobin IA Ql (S tl)on 05-01-2021 Stool Occult Blood (FOREST) Positive [facility] Work Phone: Stool gastrointestinal hemoglobin detection by immunologic method Positive [facility] Work Phone: No Panel Informationon 05-01 72.5 Seconds 24.1-36.2 [facility] Work Phone: No growth in 5 days. [facility] Work Phone: 1806 pg/mL 211-911 [facility] Work Phone: Streptococcus pneumoniae Antigen (M [facility] Work Phone: Immature Reticulocyte Fraction 33.10 % 3.00-15.90 [facility] Work Phone: Reticulocyte Count 1.72 % 0.5-1.5 [facility] Work Phone: Total Iron Binding Capacity 152 ug/dL 250-450 [facility] Work Phone: 1+ [facility] Work Phone: [phone] 1.72 % 0.5-1.5 [facility] Work Phone: 33.10 % 3.00-15.90 [facility] Work Phone: 152 ug/dL 250-450 [facility] Work Phone: Serum or plasma ferritin vasquez surement (mass/volume)on 05-01-2021 Ferritin [Mass/Vol] 544 ng/mL 26-388 [facility] Work Phone: Serum or plasma iron saturat ion measurement (mass fraction)on 05-01-2021 Iron saturation [Mass fraction] 9.9 % 15.0-55.0 [facility] Work Phone: INR in Blood by Coagulation assayon 04-30-2021 INR Coag (Bld) [Relative time] 2.7 {INR} [facility] Work Phone: Laboratory - Coagulationon 0 04-30-2021 PT Coag (PPP) [Time] 27.9 s 11.7-14.9 [facility] Work Phone: No Panel Informationon 04-30 Methicillin-Resist S.aureus DNA PCR Negative Negative [facility] Work Phone: Negative Negative [facility] Work Phone: 27.9 SECONDS 11.7-14.9 [facility] Work Phone: Vancomycin troughon 05-01-19 Vancomycin trough [Mass/Vol] 10.5 ug/mL 5.0-15.0 [facility] Work Phone: Comment on above: VANCOMYCIN STANDARED DRUG THERAPY TROUGH LEVEL: 5.0 - 15.0 mg/L VANCOMYCIN HIGH INTENSITY THERAPY TROUGH LEVEL: 15.0 - 20.0 mg/L High Intensity therapy recommended for serious lifethreatening infections include:- Sxbcodcgnp-Gowlsyxywexm-Bfdmmgfys (Ventilator/Healtcare Associated)-Sepsis PLEASE CONTACT PHARMACY SERVICES (#[id number]) FOR INTERPRETATIONOF RESULTS. Glucose Glucometer (BldC) [M ass/Vol]on 04-29-2021 Glucose [Mass/Vol] 103 mg/dL 74-106 [facility] Work Phone: Comment on above: MANAGEMENT OF PATIEN T CARE PER NURSING PROTOCOL Laboratory - Chemistry and C hemistry - challengeon 04-29-2021 Natriuretic peptide B (Bld) [Mass/Vol] 65.0 pg/mL 0-100 [facility] Work Phone: No Panel Informationon 04-29 Troponin I High Sensitivity 24 pg/mL 3.0-78.0 [facility] Work Phone: [phone] Comment on above: Please Note: New Nicole t Units and Gender Specific Reference Ranges. For more information see Policy Stat Procedure [place] High Sensitivity Troponin (TNIH) and attachments. 24 pg/mL 3.0-78.0 [facility] Work Phone: [phone] 65.0 pg/mL 0-100 [facility] Work Phone: Absolute lymphocyte counton 04-28-2021 Lymphocytes Auto (Unsp spec) [#/Vol] 0.59 10*3/uL 0.83-4.51 [facility] Work Phone: Basophil percentageon 2021 Basophil percentage 86 mg/dL 74-106 [facility] Work Phone: Basophil percentage 141 mmol/L 136-145 [facility] Work Phone: Basophil percentage 3.6 mmol/L 3.5-5.1 [facility] Work Phone: Basophil percentage 110 mmol/L 98-107 [facility] Work Phone: [phone] Basophils (Bld) [#/Vol] 4.6 10*3/uL 4.4-11.0 [facility] Work Phone: Basophils (Bld) [#/Vol] 3.6 10*3/uL 2.0-7.7 [facility] Work Phone: Basophils/100 WBC (Bld) 77.1 % 47-70 [facility] Work Phone: Basophils/100 WBC (Bld) 1.7 % 0-5 [facility] Work Phone: Basophils/100 WBC (Bld) 0.2 % 0-1 [facility] Work Phone: Chloride [Moles/Vol] 110 mmol/L 98-107 [facility] Work Phone: Eosinophils/100 WBC (Bld) 1.7 % 0-5 [facility] Work Phone: Glucose [Mass/Vol] 86 mg/dL 74-106 [facility] Work Phone: Neutrophils (Bld) [#/Vol] 3.6 10*3/uL 2.0-7.7 [facility] Work Phone: Neutrophils/100 WBC (Bld) 77.1 % 47-70 [facility] Work Phone: Potassium [Moles/Vol] 3.6 mmol/L 3.5-5.1 [facility] Work Phone: Sodium [Moles/Vol] 141 mmol/L 136-145 [facility] Work Phone: WBC (Bld) [#/Vol] 4.6 10*3/uL 4.4-11.0 [facility] Work Phone: Blood erythrocytes count (nu mber/volume)on 04-28-2021 RBC (Bld) [#/Vol] 3.73 10*6/uL 4.6-6.[facility]: Blood hemoglobin measurement (mass/volume)on 03-05-2022 Hemoglobin (Bld) [Mass/Vol] 9.7 g/dL 13.0-16.5 [facility] Work Phone: Blood lymphocytes/100 leukoc yteson 04-28-2021 Lymphocytes/100 WBC (Bld) 12.8 % 19-41 [facility] Work Phone: Blood monocytes/100 leukocyt eson 04-28-2021 Monocytes/100 WBC (Bld) 7.6 % 0-10 [facility] Work Phone: Blood platelet mean volumeon 04-28-2021 Platelet mean volume (Bld) [Entitic vol] 10.5 fL 6.2-12.0 [facility] Work Phone: Determination of erythrocyte mean corpuscular volume (MCV)on 04-28-2021 MCV (RBC) [Entitic vol] 82.6 fL 80-94 [facility] Work Phone: Hematocrit Auto (Bld) [Volum e fraction]on 04-28-2021 Hematocrit (Bld) [Volume fraction] 30.8 % 40-54 [facility] Work Phone: Laboratory - Chemistry and C hemistry - challengeon 04-28-2021 CO2 [Moles/Vol] 24.0 mmol/L 21.0-32.0 [facility] Work Phone: Urea nitrogen/Creatinine [Mass ratio] 18.7 mg/mg 10-20 [facility] Work Phone: Laboratory - Hematology and Cell countson 04-28-2021 Anisocytosis Ql (Bld) 1+ [facility] Work Phone: Erythrocyte distribution width (RBC) [Entitic vol] 50.5 fL 35.1-43.9 [facility] Work Phone: Erythrocyte distribution width (RBC) [Ratio] 17.1 % 11.6-14.6 [facility] Work Phone: Immature granulocytes/100 WBC (Bld) 0.600 % 0.0-0.9 [facility] Work Phone: Comment on above: IG% - Immature Granu locytes (promyelocytes, myelocytes and metamyelocytes) > 1% indicates that a LEFT SHIFT is Present. MCH (RBC) [Entitic mass] 26.0 pg 27.0-32.0 [facility] Work Phone: Nucleated RBC/100 WBC (Bld) [Ratio] 0 % 0-5 [facility] Work Phone: Laboratory - Microbiology an d Antimicrobial susceptibilityon 04-28-2021 Bacteria identified Cx Nom (Bld) No growth in 5 days. [facility] Work Phone: MCHC Auto (RBC) [Mass/Vol]on 04-28-2021 MCHC (RBC) [Mass/Vol] 31.5 g/dL 32-36 [facility] Work Phone: No Panel Informationon 04-28 Acanthocytes RARE [facility] Work Phone: Estimated Creatinine Clearance Calc 45.13 ml/min [facility] Work Phone: [phone] Estimated GFR (MDRD) Amer 57 mL/min >60 [facility] Work Phone: Comment on above: GFR Calc Estimated GFR (MDRD) Non-Af Amer 47 mL/min >60 [facility] Work Phone: Comment on above: Non- GFR Calc 26.0 pg 27.0-32.0 [facility] Work Phone: 17.1 % 11.6-14.6 [facility] Work Phone: 50.5 fl 35.1-43.9 [facility] Work Phone: 0.600 % 0.0-0.9 [facility] Work Phone: 0 % 0-5 [facility] Work Phone: 1+ [facility] Work Phone: RARE [facility] Work Phone: 47 mL/min >60 [facility] Work Phone: 57 mL/min >60 [facility] Work Phone: [phone] 45.13 ml/min [facility] Work Phone: [phone] 18.7 RATIO 10-20 [facility] Work Phone: 24.0 mmol/L 21.0-32.0 [facility] Work Phone: [phone] No growth in [address] [facility] Work Phone: [phone] Ovalocyte detectionon 2021 Ovalocytes LM Ql (Bld) RARE [place] [facility] Work Phone: [phone] Platelets bldon 04-28-2021 Platelets (Bld) [#/Vol] 247 10*3/uL 150-450 [facility] Work Phone: [phone] Serum or plasma calcium yocasta urement (mass/volume)on 04-28-2021 Calcium [Mass/Vol] 8.9 mg/dL 8.5-10.1 [facility] Work Phone: Serum or plasma creatinine m easurement (mass/volume)on 04-28-2021 Creatinine [Mass/Vol] 1.55 mg/dL 0.70-1.30 [facility] Work Phone: [phone] Comment on above: The validity of the calculated GFR & GFRAA in patients over 70 years has not been determined. Clinical correlation is essential. Serum or plasma urea nitroge n measurement (mass/volume)on 04-28-2021 Urea nitrogen [Mass/Vol] 29 mg/dL 7-18 [facility] Work Phone: Thin prep Papanicolaou smear with manual screeningon 04-28-2021 Thin prep Papanicolaou smear with manual screening 7 5-15 [facility] Work Phone: Absolute lymphocyte counton 04-26-2021 Lymphocytes Auto (Unsp spec) [#/Vol] 0.62 10*3/uL 0.83-4.51 [facility] Work Phone: Amorphous sediment detection in urine sediment by light microscopyon 04-26-2021 Amorphous sediment LM Ql (Urine sed) 1+ [facility] Work Phone: Basophil percentageon 2021 Basophil percentage 92 mg/dL 74-106 [facility] Work Phone: Basophil percentage 2.5 mg/dL 2.5-4.9 [facility] Basophil percentage 138 mmol/L 136-145 [facility] Work [facility]: Basophil percentage 3.4 mmol/L 3.5-5.1 [facility] Work Phone: Basophil percentage 108 mmol/L 98-107 [facility] Work Phone: Basophils (Bld) [#/Vol] 5.2 10*3/uL 4.4-11.0 [facility] Work Phone: Basophils (Bld) [#/Vol] 4.0 10*3/uL 2.0-7.7 [facility] Work Phone: Basophils/100 WBC (Bld) 77.3 % 47-70 [facility] Work Phone: Basophils/100 WBC (Bld) 1.3 % 0-5 [facility] Work Phone: Basophils/100 WBC (Bld) 0.2 % 0-1 [facility] Work Phone: Chloride [Moles/Vol] 108 mmol/L 98-107 [facility]: Eosinophils/100 WBC (Bld) 1.3 % 0-5 [facility] Work Phone: Glucose [Mass/Vol] 92 mg/dL 74-106 [facility] Work Phone: Neutrophils (Bld) [#/Vol] 4.0 10*3/uL 2.0-7.7 [facility] Work Phone: Neutrophils/100 WBC (Bld) 77.3 % 47-70 [facility] Work Phone: Potassium [Moles/Vol] 3.4 mmol/L 3.5-5.[address] [facility] Work Phone: Sodium [Moles/Vol] 138 mmol/L 136-145 [email or web address] r [facility] Work Phone: WBC (Bld) [#/Vol] 5.2 10*3/uL 4.4-11.0 [email or web address] r [facility] Work Phone: Basophil percentage 0-5 SEEN /hpf [place] [facility] Work Phone: Bilirubin Test strip Ql (U)o n 04-26-2021 Bilirubin Ql (U) Negative Negative [facility] Work Phone: Blood erythrocytes count (nu mber/volume)on 04-26-2021 RBC (Bld) [#/Vol] 3.82 10*6/uL 4.6-6.2 [facility] Work [facility]: Blood hemoglobin measurement (mass/volume)on 04-26-2021 Hemoglobin (Bld) [Mass/Vol] 9.5 g/dL 13.0-16.5 [facility] Work Phone: Blood lymphocytes/100 leukoc yteson 04-26-2021 Lymphocytes/100 WBC (Bld) 11.9 % 19-41 [facility] Work Phone: Blood monocytes/100 leukocyt eson 04-26-2021 Monocytes/100 WBC (Bld) 8.5 % 0-10 [facility] Work Phone: Blood platelet mean volumeon 04-26-2021 Platelet mean volume (Bld) [Entitic vol] 10.2 fL 6.2-12.0 [facility] Work Phone: Determination of erythrocyte mean corpuscular volume (MCV)on 04-26-2021 MCV (RBC) [Entitic vol] 80.9 fL 80-94 [facility] Work Phone: Glucose Glucometer (BldC) [M ass/Vol]on 04-26-2021 Glucose [Mass/Vol] 238 mg/dL 74-106 [facility] Work Phone: Comment on above: MANAGEMENT OF PATIEN T CARE PER NURSING PROTOCOL Hematocrit Auto (Bld) [Volum e fraction]on 04-26-2021 Hematocrit (Bld) [Volume fraction] 30.9 % 40-54 [facility] Work Phone: Ketones Test strip Ql (U)on 04-26-2021 Ketones Ql (U) Negative Negative [facility] Work Phone: Laboratory - Chemistry and C hemistry - challengeon 04-26-2021 CO2 [Moles/Vol] 26.0 mmol/L 21.0-32.0 [facility] Work Phone: [phone] Magnesium [Mass/Vol] 1.6 mg/dL 1.6-2.6 [facility] Work Phone: [phone] Urea nitrogen/Creatinine [Mass ratio] 16.3 mg/mg 10-20 [facility] Work Phone: Laboratory - Hematology and Cell countson 04-26-2021 Erythrocyte distribution width (RBC) [Entitic vol] 48.0 fL 35.1-43.9 [facility] Work Phone: Erythrocyte distribution width (RBC) [Ratio] 16.5 % 11.6-14.6 [facility] Work Phone: Immature granulocytes/100 WBC (Bld) 0.800 % 0.0-0.9 [facility] Work Phone: Comment on above: IG% - Immature Granu locytes (promyelocytes, myelocytes and metamyelocytes) > 1% indicates that a LEFT SHIFT is Present. MCH (RBC) [Entitic mass] 24.9 pg 27.0-32.0 [facility] Work Phone: Nucleated RBC/100 WBC (Bld) [Ratio] 0 % 0-5 [facility] Work Phone: MCHC Auto (RBC) [Mass/Vol]on 04-26-2021 MCHC (RBC) [Mass/Vol] 30.7 g/dL 32-36 [facility] Work Phone: Comment on above: Delta: 32.4 on 04/25-0550 Mucus LM Ql (Urine sed)on Mucus Ql (Urine sed) 0 SEEN /hpf [facility] Work Phone: Nitrite Test strip Ql (U)on 04-26-2021 Nitrite Ql (U) Negative Negative [facility] Work Phone: [phone] Panel Informationon 04-26 Estimated Creatinine Clearance Calc 51.82 ml/min [facility] Work Phone: Estimated GFR (MDRD) Amer 67 mL/min >60 [facility] Work Phone: [phone] Comment on above: GFR Calc Estimated GFR (MDRD) Non-Af Amer 55 mL/min >60 [facility] Work Phone: [phone] Comment on above: Non- GFR Calc 24.9 pg 27.0-32.0 [facility] Work Phone: 16.5 % 11.6-14.6 [facility] Work Phone: 48.0 fl 35.1-43.9 [facility] Work Phone: 0.800 % 0.0-0.9 [facility] Work Phone: 0 % 0-5 [facility] Work Phone: 55 mL/min >60 [facility] Work Phone: [phone] 67 mL/min >60 [facility] Work Phone: [phone] 51.82 ml/min [facility] Work Phone: 16.3 RATIO 10-20 [facility] Work Phone: 1.6 mg/dL 1.6-2.6 [facility] Work Phone: 26.0 mmol/L 21.0-32.0 [facility] Work Phone: Platelets bldon 04-26-2021 Platelets (Bld) [#/Vol] 190 10*3/uL 150-450 [facility] Work Phone: Protein Test strip Ql (U)on 04-26-2021 Protein Ql (U) 30 mg/dl Negative [facility] Work Phone: Serum or plasma calcium yocasta urement (mass/volume)on 04-26-2021 Calcium [Mass/Vol] 7.8 mg/dL 8.5-10.1 [facility] Work Phone: Serum or plasma creatinine m easurement (mass/volume)on 04-26-2021 Creatinine [Mass/Vol] 1.35 mg/dL 0.70-1.30 [facility] Work Phone: Comment on above: The validity of the calculated GFR & GFRAA in patients over 70 years has not been determined. Clinical correlation is essential. Serum or plasma urea nitroge n measurement (mass/volume)on 04-26-2021 Urea nitrogen [Mass/Vol] 22 mg/dL 7-18 [facility] Work Phone: Squamous epithelial cells de tection in urine sediment by light microscopyon 04-26-2021 Epithelial cells.squamous LM Ql (Urine sed) 0 SEEN /hpf [facility] Work Phone: Thin prep Papanicolaou smear with manual screeningon 04-26-2021 Thin prep Papanicolaou smear with manual screening 4 5-15 [facility] Work Phone: Urine blood detectionon - RBC Ql (U) 25 /ul Negative [facility] Work Phone: [phone] RBC Ql (U) 0-5 SEEN /hpf [facility] Work Phone: Urine clarityon 04-26-2021 Clarity (U) Clear Clear [facility] Work Phone: Urine color determinationon 04-26-2021 Color (U) Yellow Yellow [facility] Work Phone: Urine glucose detectionon Glucose Ql (U) Normal mg/dl Normal [facility] Work Phone: [phone] Urine leukocyte esterase det ection by dipstickon 04-26-2021 Leukocyte esterase Test strip Ql (U) Negative Negative [facility] Work Phone: [phone] Urine pHon 04-26-2021 pH (U) 6.0 [pH] [facility] Work Phone: Urine sediment bacteria coun t by microscopy (number/high power field)on 04-26-2021 Bacteria LM.HPF (Urine sed) [#/Area] 2 /[HPF] None Seen [facility] Work Phone: Urine sediment yeast count b y microscopy (number/high powered field)on 04-26-2021 Yeast LM.HPF (Urine sed) [#/Area] 2 /[HPF] None Seen [facility] Work Phone: [phone] Urine specific gravity measu rementon 04-26-2021 Specific gravity (U) [Rel density] 1.010 [facility] Work Phone: [phone] Urobilinogen Auto test strip Ql (U)on 04-26-2021 Urobilinogen Ql (U) Normal mg/dl Normal [facility] Work Phone: Blood manual differential co mment interpretation (narrative result)on 04-25-2021 Manual differential comment Sohan (Bld) [Interp] SCANNED [facility] Work Phone: Comment on above: LYMPHOPENIA NOTED Serum or plasma vancomycin m easurement (mass/volume)on 04-25-2021 Vancomycin [Mass/Vol] 17.8 ug/mL 0.0-15.0 [facility] Work Phone: Comment on above: VANCOMYCIN STANDARD DRUG THERAPY: CRITICAL VALUE IS > 15.0 mg/L VANCOMYCIN HIGH INTENSITY THERAPY: CRITICAL VALUE IS > 20.0 mg/L PLEASE CONTACT PHARMACY SERVICES (#[id number]) FOR INTERPRETATIONOF RESULTS. THIS RESULT DOES NOT REPRESENT A PEAK OR TROUGHLEVEL FOR THIS DRUG. Vancomycin troughon 04-23-19 Vancomycin trough [Mass/Vol] 21.6 ug/mL 5.0-15.0 [facility] Work Phone: Comment on above: VANCOMYCIN STANDARED DRUG THERAPY TROUGH LEVEL: 5.0 - 15.0 mg/L VANCOMYCIN HIGH INTENSITY THERAPY TROUGH LEVEL: 15.0 - 20.0 mg/L High Intensity therapy recommended for serious lifethreatening infections include:- Ympurhkpoy-Dvixsutlnmas-Coziixnap (Ventilator/Healtcare Associated)-Sepsis PLEASE CONTACT PHARMACY SERVICES (#[id number]) FOR INTERPRETATIONOF RESULTS. Basophil percentageon 2021 Basophil percentage 5.1 g/dL 6.4-8.2 [facility] Work Phone: [phone] Basophil percentage 0.70 mg/dL 0.20-1.00 [facility] Work Phone: [phone] Bilirubin [Mass/Vol] 0.70 mg/dL 0.20-1.00 [facility] Work Phone: [phone] Comment on above: For patients on eltr ombopag therapy, use of Dimension [place] TBIL is not recommended. Protein [Mass/Vol] 5.1 g/dL 6.4-8.2 [facility] Work Phone: [phone] Laboratory - Chemistry and C hemistry - challengeon 04-22-2021 Natriuretic peptide B (Bld) [Mass/Vol] 80.0 pg/mL 0-100 [facility] Work Phone: [phone] ALP [Catalytic activity/Vol] 63 U/L 45-117 [facility] Work Phone: [phone] ALT [Catalytic activity/Vol] 22 U/L 16-61 [facility] Work Phone: [phone] Globulin (S) [Mass/Vol] 3.1 g/dL 2.2-4.2 [facility] Work Phone: [phone] Laboratory - Microbiology an d Antimicrobial susceptibilityon 04-22-2021 Bacteria identified Cx Nom (Bld) No growth in 5 days. [facility] Work Phone: [phone] No Panel Informationon 04-22 Troponin I High Sensitivity 20 pg/mL 3.0-78.0 [facility] Work Phone: [phone] Comment on above: Please Note: New Nicole t Units and Gender Specific Reference Ranges. For more information see Policy Stat Procedure [place] High Sensitivity Troponin (TNIH) and attachments. 20 pg/mL 3.0-78.0 [facility] Work Phone: [phone] 80.0 pg/mL 0-100 [facility] Work Phone: [phone] No [facility]: [phone] 3.1 g/dL 2.2-4.2 [facility] Work Phone: U/L 45-117 [facility] Work Phone: [phone] 22 U/L 16-61 [facility] Work Phone: [phone] Serum or plasma albumin yocasta urement (mass/volume)on 04-22-2021 Albumin [Mass/Vol] 2.0 g/dL 3.2-5.0 [facility] Work Phone: [phone] Serum or plasma albumin/glob ulin mass ratioon 04-22-2021 Albumin/Globulin [Mass ratio] 0.6 {ratio} 0.9-2.4 [facility] Work Phone: Serum procalcitonin measurem enton 04-22-2021 Procalcitonin [Mass/Vol] 0.13 ng/mL 0.00-0.09 [facility] Work Phone: Comment on above: A procalcitonin (PCT ) level above 2.0 ng/mL on the first day of ICU admission is associated with a high risk for progression to severe sepsis and/or septic shock. A PCT level below 0.5 ng/mL on the first day of ICU admission is associated with a low risk for progression to severe and/or septic shock. Note: Concentrations <0.5 ng/mL do not exclude an infection on account of localized infections (without systemic signs) which can be associated with such low concentrations, or a systemic infection in its initial stages (<6 hours). Furthermore, increased procalcitonin can occur without infection. PCT concentrations between 0.5 and 2.0 ng/mL should be interpreted taking into account the patient's history. It is recommended to retest PCT within 6-24 hours if any concentrations <2 ng/mL are obtained. Thin prep Papanicolaou smear with manual screeningon 04-22-2021 Thin prep Papanicolaou smear with manual screening 15 U/L 15-37 [facility] Work Phone: Bacteria identified Cx Nom ( U)on 04-21-2021 Culture, urine Yeast, not Elisha albicans [facility] Work Phone: [phone] Culture, urine Positive [facility] Work Phone: [phone] Blood platelet adequacy dete ction by light microscopyon 04-21-2021 Platelets LM Ql (Bld) ADEQUATE ADEQ [facility] Work Phone: [phone] Culture, urineon 04-21-2021 Bacteria identified Cx Nom (U) Yeast, not Elisha albicans [facility] Work Phone: [phone] Bacteria identified Cx Nom (U) Positive [facility] Work Phone: [phone] RBC morphologyon 04-21-2021 RBC morphology finding Nom (Bld) NORM C+C NORMAL NORM C&C [facility] Work Phone: [phone] Absolute lymphocyte counton 04-11-2021 Lymphocytes Auto (Unsp spec) [#/Vol] 0.50 10*3/uL 0.83-4.51 [facility] Work Phone: Basophil percentageon 2021 Basophil percentage 171 mg/dL 74-106 [facility] Work Phone: [phone] Basophil percentage 5.8 g/dL 6.4-8.2 [facility] Work Phone: [phone] Basophil percentage 0.30 mg/dL 0.20-1.00 [facility] Work Phone: Basophil percentage 135 mmol/L 136-145 [facility] Work Phone: Basophil percentage 3.8 mmol/L 3.5-5.1 [facility] Work Phone: Basophil percentage 103 mmol/L 98-107 [facility] Work Phone: Basophils (Bld) [#/Vol] 6.9 10*3/uL 4.4-11.0 [facility] Work Phone: Basophils (Bld) [#/Vol] 5.7 10*3/uL 2.0-7.7 [facility] Work Phone: Basophils/100 WBC (Bld) 83.4 % 47-70 [facility] Work Phone: Basophils/100 WBC (Bld) 0.1 % 0-5 [facility] Work Phone: Basophils/100 WBC (Bld) 0.3 % 0-1 [facility] Work Phone: Bilirubin [Mass/Vol] 0.30 mg/dL 0.20-1.00 [facility] Work Phone: Comment on above: For patients on eltr ombopag therapy, use of Dimension [place] TBIL is not recommended. Chloride [Moles/Vol] 103 mmol/L 98-107 [facility] Work Phone: Eosinophils/100 WBC (Bld) 0.1 % 0-5 [facility] Work Phone: Glucose [Mass/Vol] 171 mg/dL 74-106 [facility] Work Phone: Comment on above: Fasting Glucose resu lt greater than or equal to 126 mg/dL suggests DIABETES MELLITUS per A.D.A. criteria. Neutrophils (Bld) [#/Vol] 5.7 10*3/uL 2.0-7.7 [facility] Work Phone: Neutrophils/100 WBC (Bld) 83.4 % 47-70 [facility] Work Phone: Potassium [Moles/Vol] 3.8 mmol/L 3.5-5.1 [facility] Work Phone: Protein [Mass/Vol] 5.8 g/dL 6.4-8.2 [facility] Work Phone: Sodium [Moles/Vol] 135 mmol/L 136-145 [facility] Work Phone: WBC (Bld) [#/Vol] 6.9 10*3/uL 4.4-11.0 [facility] Work Phone: Blood erythrocytes count (nu mber/volume)on 04-11-2021 RBC (Bld) [#/Vol] 3.99 10*6/uL 4.6-6.2 [facility] Work Phone: Blood hemoglobin measurement (mass/volume)on 04-11-2021 Hemoglobin (Bld) [Mass/Vol] 10.2 g/dL 13.0-16.5 [facility] Work Phone: Blood lymphocytes/100 leukoc yteson 04-11-2021 Lymphocytes/100 WBC (Bld) 7.3 % 19-41 [facility] Work Phone: Blood manual differential co mment interpretation (narrative result)on 04-11-2021 Manual differential comment Sohan (Bld) [Interp] SCANNED [facility] Work Phone: Comment on above: LYMPHOPENIA NOTED Blood monocytes/100 leukocyt eson 04-11-2021 Monocytes/100 WBC (Bld) 7.7 % 0-10 [facility] Work Phone: Blood platelet mean volumeon 04-11-2021 Platelet mean volume (Bld) [Entitic vol] 11.3 fL 6.2-12.0 [facility] Work Phone: Determination of erythrocyte mean corpuscular volume (MCV)on 04-11-2021 MCV (RBC) [Entitic vol] 75.9 fL 80-94 [facility] Work Phone: Glucose Glucometer (BldC) [M ass/Vol]on 04-11-2021 Glucose [Mass/Vol] 162 mg/dL 70-110 [facility] Work Phone: Comment on above: MANAGEMENT OF PATIEN T CARE PER NURSING PROTOCOL Hematocrit Auto (Bld) [Volum e fraction]on 04-11-2021 Hematocrit (Bld) [Volume fraction] 30.3 % 40-54 [facility] Work Phone: Laboratory - Chemistry and C hemistry - challengeon 04-11-2021 ALP [Catalytic activity/Vol] 62 U/L 45-117 [facility] Work Phone: [phone] ALT [Catalytic activity/Vol] 29 U/L 16-61 [facility] Work Phone: [phone] CO2 [Moles/Vol] 24.0 mmol/L 21.0-32.0 [facility] Work Phone: [phone] Globulin (S) [Mass/Vol] 3.5 g/dL 2.2-4.2 [facility] Work Phone: [phone] Magnesium [Mass/Vol] 1.8 mg/dL 1.6-2.6 [facility] Work Phone: [phone] Urea nitrogen/Creatinine [Mass ratio] 33.3 mg/mg 10-20 [facility] Work Phone: [phone] Laboratory - Hematology and Cell countson 04-11-2021 Erythrocyte distribution width (RBC) [Entitic vol] 43.0 fL 35.1-43.9 [facility] Work Phone: [phone] Erythrocyte distribution width (RBC) [Ratio] 15.9 % 11.6-14.6 [facility] Work Phone: [phone] Immature granulocytes/100 WBC (Bld) 1.200 % 0.0-0.9 [facility] Work Phone: [phone] Comment on above: IG% - Immature Granu locytes (promyelocytes, myelocytes and metamyelocytes) > 1% indicates that a LEFT SHIFT is Present. MCH (RBC) [Entitic mass] 25.6 pg 27.0-32.0 [facility] Work Phone: [phone] Nucleated RBC/100 WBC (Bld) [Ratio] 0 % 0-5 [facility] Work Phone: [phone] MCHC Auto (RBC) [Mass/Vol]on 04-11-2021 MCHC (RBC) [Mass/Vol] 33.7 g/dL 32-36 [facility] Work Phone: No Panel Informationon 04-11 Estimated Creatinine Clearance Calc 86.37 ml/min [facility] Work Phone: Estimated GFR (MDRD) Amer 121 mL/min >60 [facility] Work Phone: Comment on above: GFR Calc Estimated GFR (MDRD) Non-Af Amer 100 mL/min >60 [facility] Work Phone: Comment on above: Non- GFR Calc 25.6 pg 27.0-32.0 [facility] Work Phone: 15.9 % 11.6-14.6 [facility] Work Phone: 43.0 fl 35.1-43.9 [facility] Work Phone: 1.200 % 0.0-0.9 [facility] Work Phone: 0 % 0-5 [facility] Work Phone: 100 mL/min >60 [facility] Work Phone: 121 mL/min >60 [facility] Work Phone: 86.37 ml/min [facility] Work Phone: 33.3 RATIO 10-20 [facility] Work Phone: 3.5 g/dL 2.2-4.2 [facility] Work Phone: 62 U/L 45-117 [facility] Work Phone: 29 U/L 16-61 [facility] Work Phone: 1.8 mg/dL 1.6-2.6 [facility] Work Phone: 24.0 mmol/L 21.0-32.0 [facility] Work Phone: Platelets bldon 04-11-2021 Platelets (Bld) [#/Vol] 295 10*3/uL 150-450 [facility] Work Phone: Serum or plasma albumin yocasta urement (mass/volume)on 04-11-2021 Albumin [Mass/Vol] 2.3 g/dL 3.2-5.0 [facility] Work Phone: Serum or plasma albumin/glob ulin mass ratioon 04-11-2021 Albumin/Globulin [Mass ratio] 0.7 {ratio} 0.9-2.4 [facility] Work Phone: Serum or plasma calcium yocasta urement (mass/volume)on 04-11-2021 Calcium [Mass/Vol] 8.2 mg/dL 8.5-10.1 [facility] Work Phone: Serum or plasma creatinine m easurement (mass/volume)on 04-11-2021 Creatinine [Mass/Vol] 0.81 mg/dL 0.70-1.30 [facility] Work Phone: Comment on above: The validity of the calculated GFR & GFRAA in patients over 70 years has not been determined. Clinical correlation is essential. Serum or plasma urea nitroge n measurement (mass/volume)on 04-11-2021 Urea nitrogen [Mass/Vol] 27 mg/dL 7-18 [facility] Work Phone: Thin prep Papanicolaou smear with manual screeningon 04-11-2021 Thin prep Papanicolaou smear with manual screening 14 U/L 15-37 [facility] Work Phone: Thin prep Papanicolaou smear with manual screening 8 5-15 [facility] Work Phone: Review by pathologiston 03-27 Pathologist review Sohan (Unsp spec) [Interp] Reviewed [facility] Work Phone: Comment on above: Previous reported re sult: Josephine hair Edited by: ROSETTA on 04/11/21:940LymphopeniaMicrocytic anemia.Clinical correlation suggested.Andrea Porter D.O. 04/11/21 AMENDED REPORT 04/11/21 0941 PATH REV previously reported as: Josephine hair Bronchoalveolar lavage cultu re with Gram stainon 04-09-2021 Respiratory microbial culture or Staphylococcus aureus isolated. [facility] Work Phone: Gram stain for investigation of transfusion reactionon 04-09-2021 Microscopic observation Gram stain Nom (Unsp spec) [facility] Work Phone: Assessment of wrist artery p atency prior to arterial punctureon 04-08-2021 Arterial patency Wrist artery --pre arterial puncture Positive [facility] Work Phone: Base excesson 04-08-2021 Base excess Calc (BldV) [Moles/Vol] 0 mmol/L -2-2 [facility] Work Phone: Basophil percentageon 2021 Basophil percentage 2.2 mmol/L 0.4-2.0 [facility] Work Phone: Lactate [Moles/Vol] 2.2 mmol/L 0.4-2.0 [facility] Work Phone: Basophil percentage 23.5 mmol/L 22-26 [facility] Work Phone: Basophils/100 WBC (Bld) 90 % 95-99 [facility] Work Phone: Basophil percentage 0 SEEN /hpf [facility] Work Phone: Bilirubin Test strip Ql (U)o n 04-08-2021 Bilirubin Ql (U) Negative Negative [facility] Work Phone: CO2 (BldA) [Partial pressure ]on 04-08-2021 CO2 (Bld) [Partial pressure] 32.0 mm[Hg] 35-45 [facility] Work Phone: Ketones Test strip Ql (U)on 04-08-2021 Ketones Ql (U) Negative Negative [facility] Work Phone: Laboratory - Microbiology an d Antimicrobial susceptibilityon 04-08-2021 Bacteria identified Cx Nom (Bld) No growth in 5 days. [facility] Work Phone: Mucus LM Ql (Urine sed)on Mucus Ql (Urine sed) 0 SEEN /hpf [facility] Work Phone: Nitrite Test strip Ql (U)on 04-08-2021 Nitrite Ql (U) Negative Negative [facility] Work Phone: [phone] No Panel Informationon 04-08 Blood Gas Liter Flow 5.0 /min [facility] Work Phone: [phone] Blood Gas Sample Site L Radial [facility] Work Phone: [phone] Blood Gas Specimen Type ART [facility] Work Phone: [phone] Blood Gas Total CO2 25 mmol/L [facility] Work Phone: [phone] Oxygen Delivery Device Cannula [facility] Work Phone: ART [facility] Work Phone: [phone] L Radial [facility] Work Phone: [phone] Cannula [facility] Work Phone: [phone] 5.0 /min [facility] Work Phone: [phone] 25 mmol/L [facility] Work Phone: [phone] D-Dimer Quantitative (PE/DVT) 6.86 FEU/ug/m 0.27-0.49 [facility] Work Phone: Comment on above: D-Dimer ELEVATED (>0 .49): Additional studies and clinicalassessments are indicated to conclude diagnosis of:Deep Vein Thrombosis (DVT) or Pulmonary Embolism (PE)CRITICAL VALUE VERIFIED. CALLED TO TARAH HARRIS04/08/21 141[employer].RESULTS READ BACK BY SAME . Troponin I High Sensitivity 16 pg/mL 3.0-78.0 [facility] Work Phone: Comment on above: Please Note: New Nicole t Units and Gender Specific Reference Ranges. For more information see Policy Stat Procedure [place] High Sensitivity Troponin (TNIH) and attachments. 6.86 FEU/ug/m 0.27-0.49 [facility] Work Phone: 16 pg/mL 3.0-78.0 [facility] Work Phone: [phone] No growth in 5 days. [facility] Work Phone: Oxygen (BldA) [Partial press ure]on 04-08-2021 Oxygen (Bld) [Partial pressure] 55 mmHG 75-100 [facility] Work Phone: Protein Test strip Ql (U)on 04-08-2021 Protein Ql (U) 30 mg/dl Negative [facility] Work Phone: Squamous epithelial cells de tection in urine sediment by light microscopyon 04-08-2021 Epithelial cells.squamous LM Ql (Urine sed) 0-5 SEEN /hpf [facility] Work Phone: Urine blood detectionon 03-27 RBC Ql (U) 10 /ul Negative [facility] Work Phone: RBC Ql (U) 0-5 SEEN /hpf [facility] Work Phone: Urine clarityon 04-08-2021 Clarity (U) Clear Clear [facility] Work Phone: Urine color determinationon 04-08-2021 Color (U) Yellow Yellow [facility] Work Phone: Urine glucose detectionon Glucose Ql (U) 250 mg/dl Normal [facility] Work Phone: Urine leukocyte esterase det ection by dipstickon 04-08-2021 Leukocyte esterase Test strip Ql (U) Negative Negative [facility] Work Phone: Urine pHon 04-08-2021 pH (U) 6.0 [pH] [facility] Work Phone: Urine sediment bacteria coun t by microscopy (number/high power field)on 04-08-2021 Bacteria LM.HPF (Urine sed) [#/Area] RARE /hpf None Seen [facility] Work Phone: Urine specific gravity measu rementon 04-08-2021 Specific gravity (U) [Rel density] 1.015 [facility] Work Phone: Urobilinogen Auto test strip Ql (U)on 04-08-2021 Urobilinogen Ql (U) Normal mg/dl Normal [facility] Work Phone: pH measurementon 04-08-2021 pH (Unsp spec) 7.47 [pH] 7.35-7.45 [facility] Work Phone: Absolute lymphocyte counton 04-05-2021 Lymphocytes Auto (Unsp spec) [#/Vol] 1.16 10*3/uL 0.83-4.51 [facility] Work Phone: Basophil percentageon 2021 Basophil percentage 418 mg/dL 74-106 [facility] Work Phone: Basophil percentage 6.5 g/dL 6.4-8.2 [facility] Work Phone: Basophil percentage 0.60 mg/dL 0.20-1.00 [facility] Work Phone: Basophil percentage 135 mmol/L 136-145 [facility] Work Phone: Basophil percentage 3.8 mmol/L 3.5-5.1 [facility] Work Phone: Basophil percentage 104 mmol/L 98-107 [facility] Work Phone: Basophils (Bld) [#/Vol] 3.7 10*3/uL 4.4-11.0 [facility] Work Phone: Basophils (Bld) [#/Vol] 2.2 10*3/uL 2.0-7.7 [facility] Work Phone: Basophils/100 WBC (Bld) 60.8 % 47-70 [facility] Work Phone: Basophils/100 WBC (Bld) 0.0 % 0-1 [facility] Work Phone: Blood erythrocytes count (nu mber/volume)on 04-05-2021 RBC (Bld) [#/Vol] 3.96 10*6/uL 4.6-6.2 [facility] Work Phone: Blood hemoglobin measurement (mass/volume)on 04-05-2021 Hemoglobin (Bld) [Mass/Vol] 10.3 g/dL 13.0-16.5 [facility] Work Phone: Blood lymphocytes/100 leukoc yteson 04-05-2021 Lymphocytes/100 WBC (Bld) 31.4 % 19-41 [facility] Work Phone: Blood monocytes/100 leukocyt eson 04-05-2021 Monocytes/100 WBC (Bld) 7.3 % 0-10 [facility] Work Phone: Blood platelet mean volumeon 04-05-2021 Platelet mean volume (Bld) [Entitic vol] 11.4 fL 6.2-12.0 [facility] Work Phone: Determination of erythrocyte mean corpuscular volume (MCV)on 04-05-2021 MCV (RBC) [Entitic vol] 82.3 fL 80-94 [facility] Work Phone: Hematocrit Auto (Bld) [Volum e fraction]on 04-05-2021 Hematocrit (Bld) [Volume fraction] 32.6 % 40-54 [facility] Work Phone: MCHC Auto (RBC) [Mass/Vol]on 04-05-2021 MCHC (RBC) [Mass/Vol] 31.6 g/dL 32-36 [facility] Work Phone: No Panel Informationon 04-05 26.0 pg 27.0-32.0 [facility] Work Phone: 15.7 % 11.6-14.6 [facility] Work Phone: 47.4 fl 35.1-43.9 [facility] Work Phone: 0.500 % 0.0-0.9 [facility] Work Phone: 0 % 0-5 [facility] Work Phone: 61 mL/min >60 [facility] Work Phone: [phone] 74 mL/min >60 [facility] Work Phone: 32.3 RATIO 10-20 [facility] Work Phone: [phone] 3.9 g/dL 2.2-4.2 [facility] Work Phone: [phone] 69 U/L 45-117 [facility] Work Phone: [phone] 36 U/L 16-61 [facility] Work Phone: [phone] 21.0 mmol/L 21.0-32.0 [facility] Work Phone: [phone] Platelets bldon 04-05-2021 Platelets (Bld) [#/Vol] 195 10*3/uL 150-450 [facility] Work Phone: [phone] Serum or plasma albumin yocasta urement (mass/volume)on 04-05-2021 Albumin [Mass/Vol] 2.6 g/dL 3.2-5.0 [facility] Work Phone: [phone] Serum or plasma albumin/glob ulin mass ratioon 04-05-2021 Albumin/Globulin [Mass ratio] 0.7 {ratio} 0.9-2.4 [facility] Work Phone: [phone] Serum or plasma calcium yocasta urement (mass/volume)on 04-05-2021 Calcium [Mass/Vol] 8.8 mg/dL 8.5-10.1 [facility] Work Phone: [phone] Serum or plasma creatinine m easurement (mass/volume)on 04-05-2021 Creatinine [Mass/Vol] 1.24 mg/dL 0.70-1.30 [facility] Work Phone: [phone] Serum or plasma urea nitroge n measurement (mass/volume)on 04-05-2021 Urea nitrogen [Mass/Vol] 40 mg/dL 7-18 [facility] Work Phone: [phone] Thin prep Papanicolaou smear with manual screeningon 04-05-2021 Thin prep Papanicolaou smear with manual screening 26 U/L 15-37 [facility] Work Phone: [phone] Thin prep Papanicolaou smear with manual screening 10 5-15 [facility] Work Phone: Absolute lymphocyte counton 03-25-2021 Lymphocytes Auto (Unsp spec) [#/Vol] 0.90 10*3/uL 0.83-4.51 [facility] Work Phone: Basophil percentageon 2021 Basophil percentage 252 mg/dL 74-106 [facility] Work Phone: Basophil percentage 5.5 g/dL 6.4-8.2 [facility] Work Phone: Basophil percentage 0.30 mg/dL 0.20-1.00 [facility] Work Phone: Basophil percentage 136 mmol/L 136-145 [facility] Work Phone: Basophil percentage 4.3 mmol/L 3.5-5.1 [facility] Work Phone: Basophil percentage 105 mmol/L 98-107 [facility] Work Phone: Basophils (Bld) [#/Vol] 15.1 10*3/uL 4.4-11.0 [facility] Work Phone: Basophils (Bld) [#/Vol] 12.4 10*3/uL 2.0-7.7 [facility] Work Phone: Basophils/100 WBC (Bld) 82.3 % 47-70 [facility] Work Phone: Basophils/100 WBC (Bld) 0.1 % 0-1 [facility] Work Phone: Blood erythrocytes count (nu mber/volume)on 03-25-2021 RBC (Bld) [#/Vol] 3.59 10*6/uL 4.6-6.2 [facility] Work Phone: Blood hemoglobin measurement (mass/volume)on 03-25-2021 Hemoglobin (Bld) [Mass/Vol] 9.3 g/dL 13.0-16.5 [facility] Work Phone: Blood lymphocytes/100 leukoc yteson 03-25-2021 Lymphocytes/100 WBC (Bld) 6.0 % 19-41 [facility] Work Phone: Blood monocytes/100 leukocyt eson 03-25-2021 Monocytes/100 WBC (Bld) 8.8 % 0-10 [facility] Work Phone: Blood platelet mean volumeon 03-25-2021 Platelet mean volume (Bld) [Entitic vol] 10.8 fL 6.2-12.0 [facility] Work Phone: Determination of erythrocyte mean corpuscular volume (MCV)on 03-25-2021 MCV (RBC) [Entitic vol] 81.1 fL 80-94 [facility] Work Phone: [phone] Glucose Glucometer (BldC) [M ass/Vol]on 03-25-2021 Glucose [Mass/Vol] 389 mg/dL 70-110 [facility] Work Phone: [phone] Hematocrit Auto (Bld) [Volum e fraction]on 03-25-2021 Hematocrit (Bld) [Volume fraction] 29.1 % 40-54 [facility] Work Phone: MCHC Auto (RBC) [Mass/Vol]on 03-25-2021 MCHC (RBC) [Mass/Vol] 32.0 g/dL 32-36 [facility] Work Phone: [phone] No Panel Informationon 03-25 25.9 pg 27.0-32.0 [facility] Work Phone: 15.7 % 11.6-14.6 [facility] Work Phone: 45.5 fl 35.1-43.9 [facility] Work Phone: 2.700 % 0.0-0.9 [facility] Work Phone: 0 % 0-5 [facility] Work Phone: 119 mL/min >60 [facility] Work Phone: [phone] 144 mL/min >60 [facility] Work Phone: [phone] 72.16 ml/min [facility] Work Phone: [phone] 50.4 RATIO 10-20 [facility] Work Phone: [phone] 3.1 g/dL 2.2-4.2 [facility] Work Phone: [phone] 63 U/L 45-117 [facility] Work Phone: [phone] 22 U/L 16-61 [facility] Work Phone: [phone] 24.0 mmol/L 21.0-32.0 [facility] Work Phone: [phone] Platelets bldon 03-25-2021 Platelets (Bld) [#/Vol] 312 10*3/uL 150-450 [facility] Work Phone: [phone] Serum or plasma albumin yocasta urement (mass/volume)on 03-25-2021 Albumin [Mass/Vol] 2.4 g/dL 3.2-5.0 [facility] Work Phone: [phone] Serum or plasma albumin/glob ulin mass ratioon 03-25-2021 Albumin/Globulin [Mass ratio] 0.8 {ratio} 0.9-2.4 [facility] Work Phone: [phone] Serum or plasma calcium yocasta urement (mass/volume)on 03-25-2021 Calcium [Mass/Vol] 8.6 mg/dL 8.5-10.1 [facility] Work Phone: [phone] Serum or plasma creatinine m easurement (mass/volume)on 03-25-2021 Creatinine [Mass/Vol] 0.69 mg/dL 0.70-1.30 [facility] Work Phone: [phone] Serum or plasma urea nitroge n measurement (mass/volume)on 03-25-2021 Urea nitrogen [Mass/Vol] 35 mg/dL 7-18 [facility] Work Phone: [phone] Thin prep Papanicolaou smear with manual screeningon 03-25-2021 Thin prep Papanicolaou smear with manual screening 5 U/L 15-37 [facility] Work Phone: Thin prep Papanicolaou smear with manual screening 7 5-15 [facility] Work Phone: No Panel Informationon 03-24 1.9 mg/dL 1.6-2.6 [facility] Work Phone: Blood band neutrophil count as percentage of total leukocyteson 03-23-2021 Band form neutrophils/100 WBC (Bld) 4 % 0-5 [facility] Work Phone: Blood lymphocytes/100 leukoc yteson 03-23-2021 Lymphocytes/100 WBC (Bld) 7 % 19-41 [facility] Work Phone: Blood metamyelocytes/100 dangelo kocyteson 03-23-2021 Metamyelocytes/100 WBC (Bld) 3 % 0-1 [facility] Work Phone: Blood monocytes/100 leukocyt eson 03-23-2021 Monocytes/100 WBC (Bld) 7 % 0-10 [facility] Work Phone: Blood platelet adequacy dete ction by light microscopyon 03-23-2021 Platelets LM Ql (Bld) ADEQUATE ADEQ [facility] Work Phone: Blood segmented neutrophils/ 100 leukocyteson 03-23-2021 Segmented neutrophils/100 WBC (Bld) 79 % 47-70 [facility] Work Phone: RBC morphologyon 03-23-2021 RBC morphology finding Nom (Bld) NORM C+C NORMAL NORM C&C [facility] Work Phone: Review by pathologiston 02-25 Pathologist review Sohan (Unsp spec) [Interp] Reviewed [facility] Work Phone: Total cell counton Cells counted Molgen (Bld/Tiss) [#] 100 MANUAL DIFF [facility] Work Phone: Basophil percentageon 2021 Basophil percentage 1.7 mmol/L 0.4-2.0 [facility] Work Phone: Blood manual differential co mment interpretation (narrative result)on 03-22-2021 Manual differential comment Sohan (Bld) [Interp] SCANNED [facility] Work Phone: No Panel Informationon 03-22 429 mg/dl 203-444 [facility] Work Phone: 1.02 FEU/ug/m 0.27-0.49 [facility] Work Phone: [phone] 24 U/L 39-308 [facility] Work Phone: [phone] 14 pg/mL 3.0-78.0 [facility] Work Phone: [phone] 87.9 pg/mL 0-100 [facility] Work Phone: No growth in 5 days. [facility] Work Phone: [phone] Serum or plasma C reactive p rotein measurement (mass/volume)on 03-22-2021 CRP [Mass/Vol] 9.08 mg/L 0.0-3.0 [facility] Work Phone: Serum procalcitonin measurem enton 03-22-2021 Procalcitonin [Mass/Vol] 0.16 ng/mL 0.00-0.09 [facility] Work Phone: Thin prep Papanicolaou smear with manual screeningon 03-22-2021 Thin prep Papanicolaou smear with manual screening 188 U/L 87-241 [facility] Work Phone: Absolute lymphocyte counton 03-14-2021 Lymphocytes Auto (Unsp spec) [#/Vol] 1.11 10*3/uL 0.83-4.51 [facility] Work Phone: Basophil percentageon 2021 Basophil percentage 246 mg/dL 74-106 [facility] Work Phone: Basophil percentage 6.7 g/dL 6.4-8.2 [facility] Work Phone: Basophil percentage 0.40 mg/dL 0.20-1.00 [facility] Work Phone: Basophil percentage 140 mmol/L 136-145 [phone] Basophil percentage 4.0 mmol/L 3.5-5.1 [facility] Work Phone: Basophil percentage 107 mmol/L 98-107 [facility] Work Phone: Basophil percentage 1.7 mmol/L 0.4-2.0 [facility] Work Phone: Basophils (Bld) [#/Vol] 8.2 10*3/uL 4.4-11.0 [facility] Work Phone: Basophils (Bld) [#/Vol] 5.4 10*3/uL 2.0-7.7 [facility] Work Phone: Basophils/100 WBC (Bld) 66.0 % 47-70 [facility] Work Phone: Basophils/100 WBC (Bld) 5.5 % 0-5 [facility] Work Phone: Basophils/100 WBC (Bld) 0.6 % 0-1 [facility] Work Phone: Blood erythrocytes count (nu mber/volume)on 03-14-2021 RBC (Bld) [#/Vol] 4.05 10*6/uL 4.6-6.2 [facility] Work Phone: Blood hemoglobin measurement (mass/volume)on 03-14-2021 Hemoglobin (Bld) [Mass/Vol] 10.4 g/dL 13.0-16.5 [facility] Work Phone: Blood lymphocytes/100 leukoc yteson 03-14-2021 Lymphocytes/100 WBC (Bld) 13.6 % 19-41 [facility] Work Phone: Blood monocytes/100 leukocyt eson 03-14-2021 Monocytes/100 WBC (Bld) 13.6 % 0-10 [facility] Work Phone: Blood platelet mean volumeon 03-14-2021 Platelet mean volume (Bld) [Entitic vol] 10.1 fL 6.2-12.0 [facility] Work Phone: [phone] Determination of erythrocyte mean corpuscular volume (MCV)on 03-14-2021 MCV (RBC) [Entitic vol] 84.2 fL 80-94 [facility] Work Phone: [phone] Hematocrit Auto (Bld) [Volum e fraction]on 03-14-2021 Hematocrit (Bld) [Volume fraction] 34.1 % 40-54 [facility] Work Phone: [phone] MCHC Auto (RBC) [Mass/Vol]on 03-14-2021 MCHC (RBC) [Mass/Vol] 30.5 g/dL 32-36 [facility] Work Phone: [phone] No Panel Informationon 03-14 25.7 pg 27.0-32.0 [facility] Work Phone: [phone] 14.8 % 11.6-14.6 [facility] Work Phone: [phone] 45.6 fl 35.1-43.9 [facility] Work Phone: [phone] 0.700 % 0.0-0.9 [facility] Work Phone: [phone] 0 % 0-5 [facility] Work Phone: [phone] 1.44 FEU/ug/m 0.27-0.49 [facility] Work Phone: [phone] 99 mL/min >60 [facility] Work Phone: [phone] mL/min >60 [facility] Work Phone: [phone] 88.00 ml/min [facility] Work Phone: [phone] 24.5 RATIO 10-20 [facility] Work Phone: [phone] 3.7 g/dL 2.2-4.2 [facility] Work Phone: [phone] 10 pg/mL 3.0-78.0 [facility] Work Phone: 80 U/L 45-117 [facility] Work Phone: [phone] 22 U/L 16-61 [facility] Work Phone: [phone] 26.0 mmol/L 21.0-32.0 [facility] Work Phone: [phone] SARS-CoV-2 (COVID 19) [facility] Work Phone: [phone] No growth in 5 days. [facility] Work Phone: [phone] Platelets bldon 03-14-2021 Platelets (Bld) [#/Vol] 384 10*3/uL 150-450 [facility] Work Phone: [phone] Serum or plasma albumin yocasta urement (mass/volume)on 03-14-2021 Albumin [Mass/Vol] 3.0 g/dL 3.2-5.0 [facility] Work Phone: [phone] Serum or plasma albumin/glob ulin mass ratioon 03-14-2021 Albumin/Globulin [Mass ratio] 0.8 {ratio} 0.9-2.4 [facility] Work Phone: [phone] Serum or plasma calcium yocasta urement (mass/volume)on 03-14-2021 Calcium [Mass/Vol] 8.9 mg/dL 8.5-10.1 [facility] Work Phone: [phone] Serum or plasma creatinine m easurement (mass/volume)on 03-14-2021 Creatinine [Mass/Vol] 0.82 mg/dL 0.70-1.30 [facility] Work Phone: [phone] Serum or plasma urea nitroge n measurement (mass/volume)on 03-14-2021 Urea nitrogen [Mass/Vol] 20 mg/dL 7-18 [facility] Work Phone: [phone] Thin prep Papanicolaou smear with manual screeningon 03-14-2021 Thin prep Papanicolaou smear with manual screening 10 U/L 15-37 [facility] Work Phone: [phone] Thin prep Papanicolaou smear with manual screening 7 5-15 [facility] Work Phone: Absolute lymphocyte counton 02-05-2021 Lymphocytes Auto (Unsp spec) [#/Vol] 1.91 10*3/uL 0.83-4.51 [facility] Work Phone: Basophil percentageon 2020 Basophil percentage 92 mg/dL 74-106 [facility] Work Phone: Basophil percentage 6.7 g/dL 6.4-8.2 [facility] Work Phone: Basophil percentage 0.40 mg/dL 0.20-1.00 [facility] Work Phone: Basophil percentage 101 mg/dL <200 [facility] Work Phone: Basophil percentage 80 mg/dL [facility] Work Phone: Basophil percentage 139 mmol/L 136-145 [facility] Work Phone: Basophil percentage 4.1 mmol/L 3.5-5.1 [facility] Work Phone: Basophil percentage 107 mmol/L 98-107 [facility] Work Phone: Basophils (Bld) [#/Vol] 8.9 10*3/uL 4.4-11.0 [facility] Work Phone: Basophils (Bld) [#/Vol] 5.0 10*3/uL 2.0-7.7 [facility] Work Phone: Basophils/100 WBC (Bld) 5.9 % 0-5 [facility] Work Phone: Blood erythrocytes count (nu mber/volume)on 02-05-2021 RBC (Bld) [#/Vol] 3.94 10*6/uL 4.6-6.2 [facility] Work Phone: Blood hemoglobin measurement (mass/volume)on 02-05-2021 Hemoglobin (Bld) [Mass/Vol] 10.6 g/dL 13.0-16.5 [facility] Work Phone: Blood lymphocytes/100 leukoc yteson 02-05-2021 Lymphocytes/100 WBC (Bld) 21.5 % 19-41 [facility] Work Phone: Blood monocytes/100 leukocyt eson 02-05-2021 Monocytes/100 WBC (Bld) 14.4 % 0-10 [facility] Work Phone: Blood platelet mean volumeon 02-05-2021 Platelet mean volume (Bld) [Entitic vol] 11.1 fL 6.2-12.0 [facility] Work Phone: Determination of erythrocyte mean corpuscular volume (MCV)on 02-05-2021 MCV (RBC) [Entitic vol] 83.5 fL 80-94 [facility] Work Phone: Hematocrit Auto (Bld) [Volum e fraction]on 02-05-2021 Hematocrit (Bld) [Volume fraction] 32.9 % 40-54 [facility] Work Phone: Laboratory - Hematology and Cell countson 02-05-2021 Basophils/100 WBC (Unsp spec) 0.8 % 0-1 [facility] Work Phone: MCHC Auto (RBC) [Mass/Vol]on 02-05-2021 MCHC (RBC) [Mass/Vol] 32.2 g/dL 32-36 [facility] Work Phone: No Panel Informationon 02-05 26.9 pg 27.0-32.0 [facility] Work Phone: 14.5 % 11.6-14.6 [facility] Work Phone: 44.3 fl 35.1-43.9 [facility] Work Phone: [phone] 56.5 % 47-70 [facility] Work Phone: 0.900 % 0.0-0.9 [facility] Work Phone: [phone] 0 % 0-5 [facility] Work Phone: 114 mL/min >60 [facility] Work Phone: 138 mL/min >60 [facility] Work Phone: 20.7 RATIO 10-20 [facility] Work Phone: 3.6 g/dL 2.2-4.2 [facility] Work Phone: 93 U/L 45-117 [facility] Work Phone: 19 U/L 16-61 [facility] Work Phone: [phone] 25.0 mmol/L 21.0-32.0 [facility] Work Phone: 1.9 pg/mL 2.18-3.98 [facility] Work Phone: 0.92 uIU/mL 0.358-3.74 [facility] Work Phone: 0.92 ng/mL 0.00-4.00 [facility] Work Phone: 1.28 ng/dL 0.76-1.46 [facility] Work Phone: [phone] 27.1 ng/mL [facility] Work Phone: Platelets bldon 02-05-2021 Platelets (Bld) [#/Vol] 374 10*3/uL 150-450 [facility] Work Phone: [phone] Serum or plasma albumin yocasta urement (mass/volume)on 02-05-2021 Albumin [Mass/Vol] 3.1 g/dL 3.2-5.0 [facility] Work Phone: Serum or plasma albumin/glob ulin mass ratioon 02-05-2021 Albumin/Globulin [Mass ratio] 0.9 {ratio} 0.9-2.4 [facility] Work Phone: Serum or plasma calcium yocasta urement (mass/volume)on 02-05-2021 Calcium [Mass/Vol] 8.7 mg/dL 8.5-10.1 [facility] Work Phone: Serum or plasma cholesterol in HDL measurement (mass/volume)on 02-05-2021 Cholesterol in HDL [Mass/Vol] 35 mg/dL [facility] Work Phone: Serum or plasma cholesterol in VLDL measurement (mass/volume)on 02-05-2021 Cholesterol in VLDL [Mass/Vol] 16 mg/dL 5-40 [facility] Work Phone: [phone] Serum or plasma creatinine m easurement (mass/volume)on 02-05-2021 Creatinine [Mass/Vol] 0.72 mg/dL 0.70-1.30 [facility] Work Phone: Serum or plasma low density lipoprotein (LDL) cholesterol measurement (mass/volume)on 02-05-2021 Cholesterol in LDL [Mass/Vol] 50 mg/dL 0-130 [facility] Work Phone: Serum or plasma urea nitroge n measurement (mass/volume)on 02-05-2021 Urea nitrogen [Mass/Vol] 15 mg/dL 7-18 [facility] Work Phone: Thin prep Papanicolaou smear with manual screeningon 02-05-2021 Thin prep Papanicolaou smear with manual screening 13 U/L 15-37 [facility] Work Phone: Thin prep Papanicolaou smear with manual screening 7 5-15 [facility] Work Phone: CNOVSPon 01-12-2019 CNOVS Visit (SP) Office ([facility]) JAYDON ALONZO ([id number]) 1950 M Date Time Provider Department 01/12/19 2:00 PM JAYDON MCCONNELL During your visit today, we recorded the following information about you: Temperature Pulse Blood pressure Weight 97.2 degrees 71/minute 158/72 112.3 kg Height 1.753 m Jaydon Mcconnell DO 01/12/2019 3:15 PM Signed Consult requested by Dr. Greenberg for my opinion recommendations regarding patient with [...] signs of GI bleeding however. Fatigued. 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 No h/o hemoptysis. No wheeze. No dyspnea at rest. Occasional LANDAVERED. PMH, medications and allergies personally reviewed by [...] temperature source Temporal, height 175.3 cm (5' 9), weight 112.3 kg (247 lb 8 oz). [...] leg. SKIN: No jaundice or rash. NEUROLOGIC: it network engineer II-XII are grossly intact. No focal motor [...] all his questions to his satisfaction. 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 Normal 30.3-565.7 [facility] Comment on above: Result Comment: Acco unt Credited Iron and TIBCon 01-12-2019 Iron [Mass/Vol] Test sent to [facility]. Normal 41-186 [facility] Comment on above: Result Comment: Acco unt Credited TIBC Test sent to [facility]. Normal 232-386 [facility] Comment on above: Result Comment: Acco unt Credited Transferrin Saturatn Test sent to [facility]. Normal 15-57 [facility] Comment on above: Result Comment: Acco unt Credited PROGRESSon 01-12-2019 PROGRESS HNO ID: [id number] Author: Jaydon Mcconnell Service: ? Author Type: Physician Type: Progress Notes Filed: 01/12/2019 3:15 PM Note Text: Consult requested by Dr. Greenberg for my opinion recommendations regarding patient with [...] signs of GI bleeding however. Fatigued. 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 No h/o [...] temperature source Temporal, height 175.3 cm (5' 9), weight 112.3 kg (247 lb 8 oz). [...] leg. SKIN: No jaundice or rash. NEUROLOGIC: it network engineer II-XII are grossly intact. No focal motor [...] all his questions to his satisfaction. Jaydon Mcconnell, DO Normal [facility] CBCon 01-12-2019 Erythrocyte distribution width (RBC) [Ratio] 17.9 % High 11.5-15.0 [facility] Hematocrit (Bld) [Volume fraction] 36.4 % Low 39.0-51.0 [facility] Hemoglobin (Bld) [Mass/Vol] 12.0 g/dL Low 13.0-17.0 [facility] MCH (RBC) [Entitic mass] 27.3 pg Normal 26.0-34.0 [facility] MCHC (RBC) [Mass/Vol] 33.0 g/dL Normal 30.5-36.0 [facility] MCV (RBC) [Entitic vol] 82.7 fL Normal 80.0-100.0 [facility] Platelet mean volume (Bld) [Entitic vol] 10.1 fL Normal 9.0-12.7 [facility] Comment on above: Result Comment: Test performed by: [facility] Shonna, [address] [place] [address] [address] [place] [address]. RBC (Bld) [#/Vol] 4.40 10*6/uL Normal 4.20-6.00 [facility] WBC (Bld) [#/Vol] 6.72 10*3/uL Normal 3.70-11.00 [facility] Platelet Cnt 289 k/uL Normal 150-400 [facility] Bronchoalveolar lavage cultu re with Gram stain Respiratory Culture Citrobacter freundii [facility] Work Phone: Respiratory microbial culture or Staphylococcus aureus isolated. [facility] Work Phone: Culture, urine Bacteria identified Cx Nom (U) Positive [facility] [facility] Work Phone: Gram stain for investigation of transfusion reaction Microscopic observation Gram stain Nom (Unsp spec) [facility] Work Phone: Influenza virus A and B and SARS-CoV-2 (COVID-19) Ag panel - Upper respiratory specim SARS-CoV-2 (COVID-19) RNA JUSTIN+probe Ql (Resp) [facility] Work Phone: Laboratory - Microbiology an d Antimicrobial susceptibility Bacteria identified Cx Nom (Bld) No growth in 5 days. [facility] Work Phone: Respiratory pathogens DNA and RNA 12b panel JUSTIN+probe (Unsp spec) [facility] Work Phone: Lower GI hemoglobin IA Ql (S tl) Stool Occult Blood (FOREST) Positive [facility] Work Phone: Microbial respiratory cultur e Bacteria identified Respiratory culture Nom (Unsp spec) or Staphylococcus aureus isolated. [facility] Work Phone: No Panel Information Respiratory Panel (PCR) Rhinovirus [facility] Work Phone: SARS-CoV-2 & FLU Antigen (Rapid) [facility] Work Phone: Streptococcus pneumoniae Antigen (M [facility] Work Phone: Urine Legionella pneumophila antigen detection L. pneumophila Ag Ql (U) [facility] Work Phone: Vital Signs Date Time Vital Sign Value Performing Clinician Facility 07-20-2024 14:48-0400 Body height 180.[address] Donna Will MD Work Phone: [facility] 07-20-2024 14:48-0400 Body temperature 98.2 [degF] Dr. Donna Will MD Work Phone: [facility] 07-20-2024 14:48-0400 Diastolic blood pressure 58 mm[Hg] Dr. Donna Will MD Work Phone: [facility] 07-20-2024 14:48-0400 Heart rate 80 /min Dr. Donna Will MD Work Phone: [facility] 07-20-2024 14:48-0400 Inhaled oxygen flow rate 4 L/min Dr. Donna Will MD Work Phone: [facility] 07-20-2024 14:48-0400 Respiratory rate 18 /min Dr. Donna Will MD Work Phone: [facility] 07-20-2024 14:48-0400 SaO2% (BldA) [Mass fraction] 99 % Dr. Donna Will MD Work Phone: [facility] 07-20-2024 14:48-0400 Systolic blood pressure 112 mm[Hg] Dr. Donna Will MD Work Phone: [facility] 07-08-2024 17:00-0400 Body temperature 97.8 [degF] Dr. Donna Will MD Work Phone: [facility] 07-08-2024 17:00-0400 Diastolic blood pressure 78 mm[Hg] Dr. Donna Will MD Work Phone: [facility] 07-08-2024 17:00-0400 Heart rate 79 /min Dr. Donna Will MD Work Phone: [facility] 07-08-2024 17:00-0400 Respiratory rate 19 /min Dr. Donna Will MD Work Phone: [facility] 07-08-2024 17:00-0400 SaO2% (BldA) [Mass fraction] 100 % Dr. Donna Will MD Work Phone: [facility] 07-08-2024 17:00-0400 Systolic blood pressure 121 mm[Hg] Dr. Donna Will MD Work Phone: [facility] 07-08-2024 16:00-0400 Inhaled oxygen flow rate 4 L/min Dr. Donna Will MD Work Phone: [facility] 07-08-2024 12:29-0400 Body height 180.[address] Donna Will MD Work Phone: [facility] 06-30-2024 10:14-0400 Body mass index (BMI) [Ratio] 30.5 kg/m2 Dr. Donna Will MD Work Phone: [facility] 06-30-2024 10:14-0400 Body temperature 98.2 [degF] Dr. Donna Will MD Work Phone: [facility] 06-30-2024 10:140400 Body weight 99.[address] Donna Will MD Work Phone: [facility] 06-30-2024 10:14-0400 Diastolic blood pressure 61 mm[Hg] Dr. Donna Will MD Work Phone: [facility] 06-30-2024 10:14-0400 Heart rate 73 /min Dr. Donna Will MD Work Phone: [facility] 06-30-2024 10:140400 Inhaled oxygen flow rate 4 L/min Dr. Donna Will MD Work Phone: [facility] 06-30-2024 10:140400 Respiratory rate 16 /min Dr. Donna Will MD Work Phone: [facility] 06-30-2024 10:14-0400 SaO2% (BldA) [Mass fraction] 92 % Dr. Donna Will MD Work Phone: [facility] 06-30-2024 10:14-0400 Systolic blood pressure 123 mm[Hg] Dr. Donna Will MD Work Phone: [facility] 06-25-2024 12:27-0400 Body temperature 97.9 [degF] Dr. Donna Will MD Work Phone: [facility] 06-25-2024 12:27-0400 Diastolic blood pressure 72 mm[Hg] Dr. Donna Will MD Work Phone: [facility] 06-25-2024 12:27-0400 Heart rate 98 /min Dr. Donna Will MD Work Phone: [facility] 06-25-2024 12:27-0400 Inhaled oxygen flow rate 3 L/min Dr. Donna Will MD Work Phone: [facility] 06-25-2024 12:27-0400 Respiratory rate 18 /min Dr. Donna Will MD Work Phone: [facility] 06-25-2024 12:27-0400 SaO2% (BldA) [Mass fraction] 91 % Dr. Donna Will MD Work Phone: [facility] 06-25-2024 12:27-0400 Systolic blood pressure 118 mm[Hg] Dr. Donna Will MD Work Phone: [facility] 06-25-2024 07:04-0400 Inhaled oxygen concentration 30 % Dr. Donna Will MD Work Phone: [facility] 06-25-2024 03:41-0400 Body mass index (BMI) [Ratio] 30.3 kg/m2 Dr. Donna Will MD Work Phone: [facility] 06-25-2024 03:41-0400 Body weight 98.[address] Donna Will MD Work Phone: [facility] 06-21-2024 09:20-0400 Body height 180.[address] Donna Will MD Work Phone: [facility] 05-27-2024 15:19-0400 Body temperature 98.4 [degF] Dr. Donna Will MD Work Phone: [facility] 05-27-2024 15:19-0400 Diastolic blood pressure 64 mm[Hg] Dr. Donna Will MD Work Phone: [facility] 05-27-2024 15:19-0400 Heart rate 61 /min Dr. Donna Will MD Work Phone: [facility] 05-27-2024 15:19-0400 Respiratory rate 18 /min Dr. Donna Will MD Work Phone: [facility] 05-27-2024 15:19-0400 SaO2% (BldA) [Mass fraction] 100 % Dr. Donna Will MD Work Phone: [facility] 05-27-2024 15:19-0400 Systolic blood pressure 120 mm[Hg] Dr. Donna Will MD Work Phone: [facility] 05-20-2024 12:45-0400 Body mass index (BMI) [Ratio] 28.8 kg/m2 Dr. Donna Will MD Work Phone: [facility] 05-20-2024 12:45-0400 Body weight 93.[address] Donna Will MD Work Phone: [facility] 05-20-2024 12:45-0400 Inhaled oxygen flow rate 5 L/min Dr. Donna Will MD Work Phone: [facility] 05-18-2024 13:09-0400 Body mass index (BMI) [Ratio] 28.7 kg/m2 Dr. Donna Will MD Work Phone: [facility] 05-18-2024 13:09-0400 Body temperature 97.4 [degF] Dr. Donna Will MD Work Phone: [facility] 05-18-2024 13:09-0400 Body weight 93.[address] Donna Will MD Work Phone: [facility] 05-18-2024 13:09-0400 Diastolic blood pressure 58 mm[Hg] Dr. Donna Will MD Work Phone: [facility] 05-18-2024 13:09-0400 Heart rate 44 /min Dr. Donna Will MD Work Phone: [facility] 05-18-2024 13:09-0400 Inhaled oxygen flow rate 4 L/min Dr. Donna Will MD Work Phone: [facility] 05-18-2024 13:09-0400 Respiratory rate 20 /min Dr. Donna Will MD Work Phone: [facility] 05-18-2024 13:09-0400 SaO2% (BldA) [Mass fraction] 94 % Dr. Donna Will MD Work Phone: [facility] 05-18-2024 13:09-0400 Systolic blood pressure 110 mm[Hg] Dr. Donna Will MD Work Phone: [facility] 04-27-2024 13:52-0500 Body mass index (BMI) [Ratio] 30.7 kg/m2 Dr. Donna Will MD Work Phone: [facility] 04-27-2024 13:52-0500 Body temperature 97.6 [degF] Dr. Donna Will MD Work Phone: [facility] 04-27-2024 13:52-0500 Body weight 99.[address] Donna Will MD Work Phone: [facility] 04-27-2024 13:52-0500 Diastolic blood pressure 68 mm[Hg] Dr. Donna Will MD Work Phone: [facility] 04-27-2024 13:52-0500 Heart rate 77 /min Dr. Donna Will MD Work Phone: [facility] 04-27-2024 13:52-0500 Inhaled oxygen flow rate 4 L/min Dr. Donna Will MD Work Phone: [facility] 04-27-2024 13:52-0500 Respiratory rate 18 /min Dr. Donna Will MD Work Phone: [facility] 04-27-2024 13:52-0500 SaO2% (BldA) [Mass fraction] 92 % Dr. Donna Will MD Work Phone: [facility] 04-27-2024 13:52-0500 Systolic blood pressure 121 mm[Hg] Dr. Donan Will MD Work Phone: [facility] 04-08-2024 10:46-0500 Heart rate 71 /min Dr. Donna Will MD Work Phone: [facility] 04-08-2024 10:46-0500 Respiratory rate 18 /min Dr. Donna Will MD Work Phone: [facility] 04-08-2024 07:59-0500 Body temperature 97.8 [degF] Dr. Donna Will MD Work Phone: [facility] 04-08-2024 07:59-0500 Diastolic blood pressure 79 mm[Hg] Dr. Donna Will MD Work Phone: [facility] 04-08-2024 07:59-0500 Inhaled oxygen flow rate 4 L/min Dr. Donna Will MD Work Phone: [facility] 04-08-2024 07:59-0500 SaO2% (BldA) [Mass fraction] 98 % Dr. Donna Will MD Work Phone: [facility] 04-08-2024 07:59-0500 Systolic blood pressure 132 mm[Hg] Dr. Donna Will MD Work Phone: [facility] 04-08-2024 05:23-0500 Body mass index (BMI) [Ratio] 30.4 kg/m2 Dr. Donna Will MD Work Phone: [facility] 04-08-2024 05:23-0500 Body weight 99.[address] Donna Will MD Work Phone: [facility] 03-16-2024 11:38-0500 Body mass index (BMI) [Ratio] 28.8 kg/m2 Dr. Donna Will MD Work Phone: [facility] 03-16-2024 11:38-0500 Body weight 98.[address] Donna Will MD Work Phone: [facility] 03-16-2024 11:38-0500 Diastolic blood pressure 59 mm[Hg] Dr. Donna Will MD Work Phone: [facility] 03-16-2024 11:38-0500 Heart rate 76 /min Dr. Donna Will MD Work Phone: [facility] 03-16-2024 11:38-0500 Inhaled oxygen flow rate 4 L/min Dr. Donna Will MD Work Phone: [facility] 03-16-2024 11:38-0500 Respiratory rate 18 /min Dr. Donna Will MD Work Phone: [facility] 03-16-2024 11:38-0500 SaO2% (BldA) [Mass fraction] 85 % Dr. Donna Will MD Work Phone: [facility] 03-16-2024 11:38-0500 Systolic blood pressure 101 mm[Hg] Dr. Donna Will MD Work Phone: [facility] 03-05-2024 12:25-0500 Body mass index (BMI) [Ratio] 28.8 kg/m2 Dr. Donna Will MD Work Phone: [facility] 03-05-2024 12:25-0500 Body temperature 97.4 [degF] Dr. Donna Will MD Work Phone: [facility] 03-05-2024 12:25-0500 Body weight 98.[address] Donna Will MD Work Phone: [facility] 03-05-2024 12:25-0500 Diastolic blood pressure 64 mm[Hg] Dr. Donna Will MD Work Phone: [facility] 03-05-2024 12:25-0500 Heart rate 84 /min Dr. Donna Will MD Work Phone: [facility] 03-05-2024 12:25-0500 Inhaled oxygen flow rate 4 L/min Dr. Donna Will MD Work Phone: [facility] 03-05-2024 12:25-0500 Respiratory rate 28 /min Dr. Donna Will MD Work Phone: [facility] 03-05-2024 12:25-0500 SaO2% (BldA) [Mass fraction] 90 % Dr. Donna Will MD Work Phone: [facility] 03-05-2024 12:25-0500 Systolic blood pressure 103 mm[Hg] Dr. Donna Will MD Work Phone: [facility] 03-03-2024 11:13-0500 Inhaled oxygen flow rate 4 L/min Dr. Donna Will MD Work Phone: [facility] 03-03-2024 11:13-0500 SaO2% (BldA) [Mass fraction] 92 % Dr. Donna Will MD Work Phone: [facility] 03-03-2024 10:02-0500 Body mass index (BMI) [Ratio] 28.8 kg/m2 Dr. Donna Will MD Work Phone: [facility] 03-03-2024 10:02-0500 Body temperature 98.2 [degF] Dr. Donna Will MD Work Phone: [facility] 03-03-2024 10:02-0500 Body weight 98.[address] Donna Will MD Work Phone: [facility] 03-03-2024 10:02-0500 Diastolic blood pressure 68 mm[Hg] Dr. Donna Will MD Work Phone: [facility] 03-03-2024 10:02-0500 Heart rate 83 /min Dr. Donna Will MD Work Phone: [facility] 03-03-2024 10:02-0500 Respiratory rate 20 /min Dr. Donna Will MD Work Phone: [facility] 03-03-2024 10:02-0500 Systolic blood pressure 117 mm[Hg] Dr. Donna Will MD Work Phone: [facility] 06-05-2023 10:30-0400 Diastolic blood pressure 58 mm[Hg] Dr. Donna Will Work Phone: [facility] 06-05-2023 10:30-0400 Heart rate 69 /min Dr. Donna Will Work Phone: [facility] 06-05-2023 10:30-0400 Inhaled oxygen flow rate 5 L/min Dr. Donna Will Work Phone: [facility] 06-05-2023 10:30-0400 Respiratory rate 18 /min Dr. Donna Will Work Phone: [facility] 06-05-2023 10:30-0400 SaO2% (BldA) [Mass fraction] 94 % Dr. Donna Will Work Phone: [facility] 06-05-2023 10:30-0400 Systolic blood pressure 128 mm[Hg] Dr. Donna Will Work Phone: [facility] 06-05-2023 08:45-0400 Body height 180.[address] Donna Will Work Phone: [facility] 06-05-2023 08:45-0400 Body mass index (BMI) [Ratio] 33.3 kg/m2 Dr. Donna Will Work Phone: [facility] 06-05-2023 08:45-0400 Body temperature 96.5 [degF] Dr. Donna Will Work Phone: [facility] 06-05-2023 08:45-0400 Body weight 108.[address] Donna Will Work Phone: [facility] 05-28-2023 10:58-0400 Body mass index (BMI) [Ratio] 33.4 kg/m2 Dr. Donna Will Work Phone: [facility] 05-28-2023 10:58-0400 Body temperature 97.6 [degF] Dr. Donna Will Work Phone: [facility] 05-28-2023 10:58-0400 Body weight 108.[address] Donna Will Work Phone: [facility] 05-28-2023 10:58-0400 Diastolic blood pressure 64 mm[Hg] Dr. Donna Will Work Phone: [facility] 05-28-2023 10:58-0400 Heart rate 81 /min Dr. Donna Will Work Phone: [facility] 05-28-2023 10:58-0400 Inhaled oxygen flow rate 2 L/min Dr. Donna Will Work Phone: [facility] 05-28-2023 10:58-0400 Respiratory rate 18 /min Dr. Donna Will Work Phone: [facility] 05-28-2023 10:58-0400 SaO2% (BldA) [Mass fraction] 90 % Dr. Donna Will Work Phone: [facility] 05-28-2023 10:58-0400 Systolic blood pressure 111 mm[Hg] Dr. Donna Will Work Phone: [facility] 05-12-2023 10:29-0400 Body height 180.[address] Donna Will Work Phone: [facility] 05-12-2023 10:29-0400 Body mass index (BMI) [Ratio] 33.2 kg/m2 Dr. Donna Will Work Phone: [facility] 05-12-2023 10:29-0400 Body weight 107.[address] Donna Will Work Phone: [facility] 05-12-2023 10:29-0400 Diastolic blood pressure 73 mm[Hg] Dr. Donna Will Work Phone: [facility] 05-12-2023 10:29-0400 Heart rate 83 /min Dr. Donna Will Work Phone: [facility] 05-12-2023 10:29-0400 Inhaled oxygen flow rate 4 L/min Dr. Donna Will Work Phone: [facility] 05-12-2023 10:29-0400 Respiratory rate 20 /min Dr. Donna Will Work Phone: [facility] 05-12-2023 10:29-0400 SaO2% (BldA) [Mass fraction] 94 % Dr. Donna Will Work Phone: [facility] 05-12-2023 10:29-0400 Systolic blood pressure 118 mm[Hg] Dr. Donna Will Work Phone: [facility] 05-09-2023 14:09-0400 Body temperature 97.2 [degF] Dr. Donna Will Work Phone: [facility] 05-09-2023 14:09-0400 Diastolic blood pressure 75 mm[Hg] Dr. Donna Will Work Phone: [facility] 05-09-2023 14:09-0400 Heart rate 80 /min Dr. Donna Will Work Phone: [facility] 05-09-2023 14:09-0400 Inhaled oxygen flow rate 4 L/min Dr. Donna Will Work Phone: [facility] 05-09-2023 14:09-0400 Respiratory rate 16 /min Dr. Donna Will Work Phone: [facility] 05-09-2023 14:09-0400 SaO2% (BldA) [Mass fraction] 98 % Dr. Donna Will Work Phone: [facility] 05-09-2023 14:09-0400 Systolic blood pressure 132 mm[Hg] Dr. Donna Will Work Phone: [facility] 05-09-2023 09:04-0400 Body mass index (BMI) [Ratio] 32.9 kg/m2 Dr. Donna Will Work Phone: [facility] 05-09-2023 09:04-0400 Body weight 107.[address] Donna Will Work Phone: [facility] 05-07-2023 11:10-0400 Body mass index (BMI) [Ratio] 32.8 kg/m2 Dr. Donna Will Work Phone: [facility] 05-07-2023 11:10-0400 Body temperature 98.3 [degF] Dr. Donna Will Work Phone: [facility] 05-07-2023 11:10-0400 Body weight 106.[address] Donna Will Work Phone: [facility] 05-07-2023 11:10-0400 Diastolic blood pressure 71 mm[Hg] Dr. Donna Will Work Phone: [facility] 05-07-2023 11:10-0400 Heart rate 83 /min Dr. Donna Will Work Phone: [facility] 05-07-2023 11:10-0400 Inhaled oxygen flow rate 2 L/min Dr. Donna Will Work Phone: [facility] 05-07-2023 11:10-0400 Respiratory rate 18 /min Dr. Donna Will Work Phone: [facility] 05-07-2023 11:10-0400 SaO2% (BldA) [Mass fraction] 91 % Dr. Donna Will Work Phone: [facility] 05-07-2023 11:10-0400 Systolic blood pressure 117 mm[Hg] Dr. Donna Will Work Phone: [facility] 03-27-2023 11:35-0500 Body temperature 97.5 [degF] Dr. Donna Will Work Phone: [facility] 03-27-2023 11:35-0500 Diastolic blood pressure 60 mm[Hg] Dr. Donna Will Work Phone: [facility] 03-27-2023 11:35-0500 Heart rate 76 /min Dr. Donna Will Work Phone: [facility] 03-27-2023 11:35-0500 Inhaled oxygen flow rate 2 L/min Dr. Donna Will Work Phone: [facility] 03-27-2023 11:35-0500 Respiratory rate 18 /min Dr. Donna Will Work Phone: [facility] 03-27-2023 11:35-0500 SaO2% (BldA) [Mass fraction] 90 % Dr. Donna Will Work Phone: [facility] 03-27-2023 11:35-0500 Systolic blood pressure 110 mm[Hg] Dr. Donna Will Work Phone: [facility] 03-21-2023 14:21-0500 Inhaled oxygen flow rate 4 L/min Dr. Donna Will Work Phone: [facility] 03-21-2023 14:00-0500 Body temperature 98 [degF] Dr. Donna Will Work Phone: [facility] 03-21-2023 14:00-0500 Diastolic blood pressure 65 mm[Hg] Dr. Donna Will Work Phone: [facility] 03-21-2023 14:00-0500 Heart rate 82 /min Dr. Donna Will Work Phone: [facility] 03-21-2023 14:00-0500 Respiratory rate 18 /min Dr. Donna Will Work Phone: [facility] 03-21-2023 14:00-0500 SaO2% (BldA) [Mass fraction] 100 % Dr. Donna Will Work Phone: [facility] 03-21-2023 14:00-0500 Systolic blood pressure 103 mm[Hg] Dr. Donna Will Work Phone: [facility] 03-21-2023 08:48-0500 Body mass index (BMI) [Ratio] 28.8 kg/m2 Dr. Donna Will Work Phone: [facility] 03-21-2023 08:48-0500 Body weight 93.[address] Donna Will Work Phone: [facility] 03-18-2023 09:15-0500 Body height 180.[address] Donna Will Work Phone: [facility] 03-16-2023 17:37-0500 Body temperature 96.4 [degF] Dr. Donna Will Work Phone: [facility] 03-16-2023 17:37-0500 Diastolic blood pressure 51 mm[Hg] Dr. Donna Will Work Phone: [facility] 03-16-2023 17:37-0500 Heart rate 68 /min Dr. Donna Will Work Phone: [facility] 03-16-2023 17:37-0500 Inhaled oxygen flow rate 4 L/min Dr. Donna Will Work Phone: [facility] 03-16-2023 17:37-0500 Respiratory rate 22 /min Dr. Donna Will Work Phone: [facility] 03-16-2023 17:37-0500 SaO2% (BldA) [Mass fraction] 100 % Dr. Donna Will Work Phone: [facility] 03-16-2023 17:37-0500 Systolic blood pressure 122 mm[Hg] Dr. Donna Will Work Phone: [facility] 03-16-2023 17:33-0500 Body height 180.[address] Donna Will Work Phone: [facility] 03-16-2023 17:33-0500 Body mass index (BMI) [Ratio] 29.2 kg/m2 Dr. Donna Will Work Phone: [facility] 03-16-2023 17:33-0500 Body weight 95.[address] Donna Will Work Phone: [facility] 03-06-2023 14:12-0500 Heart rate 99 /min Dr. Donna Will Work Phone: [facility] 03-06-2023 14:12-0500 Respiratory rate 18 /min Dr. Donna Will Work Phone: [facility] 03-06-2023 11:52-0500 Body temperature 97.8 [degF] Dr. Donna Will Work Phone: [facility] 03-06-2023 11:52-0500 Diastolic blood pressure 56 mm[Hg] Dr. Donna Will Work Phone: [facility] 03-06-2023 11:52-0500 Inhaled oxygen flow rate 3 L/min Dr. Donna Will Work Phone: [facility] 03-06-2023 11:52-0500 SaO2% (BldA) [Mass fraction] 94 % Dr. Donna Will Work Phone: [facility] 03-06-2023 11:52-0500 Systolic blood pressure 94 mm[Hg] Dr. Donna Will Work Phone: [facility] 03-06-2023 04:59-0500 Body mass index (BMI) [Ratio] 33.5 kg/m2 Dr. Donna Will Work Phone: [facility] 03-06-2023 04:59-0500 Body weight [address] Donna Will Work Phone: [facility] 03-05-2023 15:41-0500 Body height 180.[address] Donna Will Work Phone: [facility] 02-28-2023 16:15-0500 Diastolic blood pressure 71 mm[Hg] Dr. Donna Will Work Phone: [facility] 02-28-2023 16:15-0500 Heart rate 95 /min Dr. Donna Will Work Phone: [facility] 02-28-2023 16:15-0500 Respiratory rate 31 /min Dr. oDnna Will Work Phone: [facility] 02-28-2023 16:15-0500 SaO2% (BldA) [Mass fraction] 90 % Dr. Donna Will Work Phone: [facility] 02-28-2023 16:15-0500 Systolic blood pressure 121 mm[Hg] Dr. Donna Will Work Phone: [facility] 02-28-2023 15:30-0500 Inhaled oxygen flow rate 4 L/min Dr. Donna Will Work Phone: [facility] 02-28-2023 15:00-0500 Body temperature 97.4 [degF] Dr. Donna Will Work Phone: [facility] 02-28-2023 11:08-0500 Body height 180.[address] Donna Will Work Phone: [facility] 02-06-2023 11:14-0500 Body temperature 98.1 [degF] Dr. Donna Will Work Phone: [facility] 02-06-2023 11:14-0500 Diastolic blood pressure 50 mm[Hg] Dr. Donna Will Work Phone: [facility] 02-06-2023 11:14-0500 Heart rate 81 /min Dr. Donna Will Work Phone: [facility] 02-06-2023 11:14-0500 Respiratory rate 16 /min Dr. Donna Will Work Phone: [facility] 02-06-2023 11:14-0500 SaO2% (BldA) [Mass fraction] 100 % Dr. Donna Will Work Phone: [facility] 02-06-2023 11:14-0500 Systolic blood pressure 112 mm[Hg] Dr. Donna Will Work Phone: [facility] 02-06-2023 10:30-0500 Body mass index (BMI) [Ratio] 30.9 kg/m2 Dr. Donna Will Work Phone: [facility] 02-06-2023 10:30-0500 Body weight 100.[address] Donna Will Work Phone: [facility] 02-06-2023 10:30-0500 Inhaled oxygen flow rate 4 L/min Dr. Donna Will Work Phone: [facility] 01-30-2023 11:30-0500 Body temperature 97.7 [degF] Dr. Donna Will Work Phone: [facility] 01-30-2023 11:30-0500 Diastolic blood pressure 49 mm[Hg] Dr. Donna Will Work Phone: [facility] 01-30-2023 11:30-0500 Heart rate 77 /min Dr. Donna Will Work Phone: [facility] 01-30-2023 11:30-0500 Respiratory rate 18 /min Dr. Donna Will Work Phone: [facility] 01-30-2023 11:30-0500 Systolic blood pressure 103 mm[Hg] Dr. Donna Will Work Phone: [facility] 01-30-2023 10:03-0500 Body height 180.[address] Donna Will Work Phone: [facility] 01-30-2023 10:03-0500 Body mass index (BMI) [Ratio] 30.9 kg/m2 Dr. Donna Will Work Phone: [facility] 01-30-2023 10:03-0500 Body weight 100.[address] Donna Will Work Phone: [facility] 01-30-2023 10:03-0500 Inhaled oxygen flow rate 4 L/min Dr. Donna Will Work Phone: [facility] 01-30-2023 10:03-0500 SaO2% (BldA) [Mass fraction] 96 % Dr. Donna Will Work Phone: [facility] 01-28-2023 07:43-0500 Body mass index (BMI) [Ratio] 30.4 kg/m2 Dr. Donna Will Work Phone: [facility] 01-28-2023 07:43-0500 Body temperature 96.9 [degF] Dr. Donna Will Work Phone: [facility] 01-28-2023 07:43-0500 Body weight 98.[address] Donna Will Work Phone: [facility] 01-28-2023 07:43-0500 Diastolic blood pressure 51 mm[Hg] Dr. Donna Will Work Phone: [facility] 01-28-2023 07:43-0500 Heart rate 88 /min Dr. Donna Will Work Phone: [facility] 01-28-2023 07:43-0500 Inhaled oxygen flow rate 3 L/min Dr. Donna Will Work Phone: [facility] 01-28-2023 07:43-0500 Respiratory rate 24 /min Dr. Donna Will Work Phone: [facility] 01-28-2023 07:43-0500 SaO2% (BldA) [Mass fraction] 93 % Dr. Donna Will Work Phone: [facility] 01-28-2023 07:43-0500 Systolic blood pressure 99 mm[Hg] Dr. Donna Will Work Phone: [facility] 01-21-2023 13:48-0500 Body mass index (BMI) [Ratio] 31.8 kg/m2 Dr. Donna Will Work Phone: [facility] 01-21-2023 13:48-0500 Body temperature 97.2 [degF] Dr. Donna Will Work Phone: [facility] 01-21-2023 13:48-0500 Body weight 103.[address] Donna Will Work Phone: [facility] 01-21-2023 13:48-0500 Diastolic blood pressure 57 mm[Hg] Dr. Donna Will Work Phone: [facility] 01-21-2023 13:48-0500 Heart rate 81 /min Dr. Donna Will Work Phone: [facility] 01-21-2023 13:48-0500 Respiratory rate 18 /min Dr. Donna Will Work Phone: [facility] 01-21-2023 13:48-0500 SaO2% (BldA) [Mass fraction] 92 % Dr. Donna Will Work Phone: [facility] 01-21-2023 13:48-0500 Systolic blood pressure 95 mm[Hg] Dr. Donna Will Work Phone: [facility] 11-26-2022 14:52-0400 Body mass index (BMI) [Ratio] 31.8 kg/m2 Dr. Donna Will Work Phone: [facility] 11-26-2022 14:52-0400 Body temperature 98.3 [degF] Dr. Donna Will Work Phone: [facility] 11-26-2022 14:52-0400 Body weight 103.[address] Donna Will Work Phone: [facility] 11-26-2022 14:52-0400 Diastolic blood pressure 64 mm[Hg] Dr. Donna Will Work Phone: [facility] 11-26-2022 14:52-0400 Heart rate 76 /min Dr. Donna Will Work Phone: [facility] 11-26-2022 14:52-0400 Inhaled oxygen flow rate 3 L/min Dr. Donna Will Work Phone: [facility] 11-26-2022 14:52-0400 Respiratory rate 18 /min Dr. Donna Will Work Phone: [facility] 11-26-2022 14:52-0400 SaO2% (BldA) [Mass fraction] 92 % Dr. Donna Will Work Phone: [facility] 11-26-2022 14:52-0400 Systolic blood pressure 119 mm[Hg] Dr. Donna Will Work Phone: [facility] 11-21-2022 15:15-0400 Body mass index (BMI) [Ratio] 32.2 kg/m2 Dr. Donna Will Work Phone: [facility] 11-21-2022 15:15-0400 Body temperature 97.4 [degF] Dr. Donna Will Work Phone: [facility] 11-21-2022 15:15-0400 Body weight 104.[address] Donna Will Work Phone: [facility] 11-21-2022 15:15-0400 Diastolic blood pressure 51 mm[Hg] Dr. Donna Will Work Phone: [facility] 11-21-2022 15:15-0400 Heart rate 92 /min Dr. Donna Will Work Phone: [facility] 11-21-2022 15:15-0400 Inhaled oxygen flow rate 3 L/min Dr. Donna Will Work Phone: [facility] 11-21-2022 15:15-0400 Respiratory rate 16 /min Dr. Donna Will Work Phone: [facility] 11-21-2022 15:15-0400 SaO2% (BldA) [Mass fraction] 91 % Dr. Donna Will Work Phone: [facility] 11-21-2022 15:15-0400 Systolic blood pressure 106 mm[Hg] Dr. Donna Will Work Phone: [facility] 11-17-2022 12:19-0400 Body temperature 98.1 [degF] [employer] DANNIELLE PIÑA Work Phone: [facility] 11-17-2022 12:19-0400 Diastolic blood pressure 58 mm[Hg] [employer] DANNIELLE PIÑA Work Phone: [facility] 11-17-2022 12:19-0400 Heart rate 68 /min [employer] DANNIELLE PIÑA Work Phone: [facility] 11-17-2022 12:19-0400 Inhaled oxygen flow rate 4 L/min [employer] DANNIELLE PIÑA Work Phone: [facility] 11-17-2022 12:19-0400 Respiratory rate 16 /min [employer] DANNIELLE PIÑA Work Phone: [facility] 11-17-2022 12:19-0400 SaO2% (BldA) [Mass fraction] 94 % [employer] DANNIELLE PIÑA Work Phone: [facility] 11-17-2022 12:19-0400 Systolic blood pressure 122 mm[Hg] [employer] DANNIELLE PIÑA Work Phone: [facility] 11-17-2022 04:44-0400 Body mass index (BMI) [Ratio] 34 kg/m2 [employer] DANNIELLE PIÑA Work Phone: [facility] 11-17-2022 04:44-0400 Body weight 110.5 kg [employer] DANNIELLE PIÑA Work Phone: [facility] 11-16-2022 12:21-0400 Body height 180.34 cm [employer] DANNIELLE PIÑA Work Phone: [facility] 11-15-2022 19:22-0400 Body temperature 98.5 [degF] [employer] DANNIELLE PIÑA Work Phone: [facility] 11-15-2022 19:22-0400 Diastolic blood pressure 74 mm[Hg] [employer] DANNIELLE PIÑA Work Phone: [facility] 11-15-2022 19:22-0400 Heart rate 78 /min [employer] DANNIELLE PIÑA Work Phone: [facility] 11-15-2022 19:22-0400 Inhaled oxygen flow rate 4 L/min [employer] DANNIELLE PIÑA Work Phone: [facility] 11-15-2022 19:22-0400 Respiratory rate 25 /min [employer] DANNIELLE PIÑA Work Phone: [facility] 11-15-2022 19:22-0400 SaO2% (BldA) [Mass fraction] 96 % [employer] DANNIELLE PIÑA Work Phone: [facility] 11-15-2022 19:22-0400 Systolic blood pressure 122 mm[Hg] [employer] DANNIELLE PIÑA Work Phone: [facility] 11-15-2022 14:30-0400 Body height 180.34 cm [employer] DANNIELLE PIÑA Work Phone: [facility] 11-15-2022 14:30-0400 Body mass index (BMI) [Ratio] 16 kg/m2 [employer] DANNIELLE PIÑA Work Phone: [facility] 11-15-2022 14:30-0400 Body weight 52.16 kg [employer] DANNIELLE PIÑA Work Phone: [facility] 11-08-2022 15:07-0400 Diastolic blood pressure 66 mm[Hg] [employer] DANNIELLE PIÑA Work Phone: [facility] 11-08-2022 15:07-0400 Heart rate 89 /min [employer] DANNIELLE PIÑA Work Phone: [facility] 11-08-2022 15:07-0400 Respiratory rate 16 /min [employer] DANNIELLE PIÑA Work Phone: [facility] 11-08-2022 15:07-0400 SaO2% (BldA) [Mass fraction] 96 % [employer] DANNIELLE PIÑA Work Phone: [facility] 11-08-2022 15:07-0400 Systolic blood pressure 139 mm[Hg] [employer] DANNIELLE PIÑA Work Phone: [facility] 11-08-2022 14:49-0400 Body temperature 97 [degF] [employer] DANNIELLE PIÑA Work Phone: [facility] 11-08-2022 14:49-0400 Inhaled oxygen flow rate 4 L/min [employer] DANNIELLE PIÑA Work Phone: [facility] 11-08-2022 13:12-0400 Body mass index (BMI) [Ratio] 33 kg/m2 [employer] DANNIELLE PIÑA Work Phone: [facility] 11-08-2022 13:12-0400 Body weight 107.55 kg [employer] DANNIELLE PIÑA Work Phone: [facility] 10-29-2022 13:39-0400 Body mass index (BMI) [Ratio] 33 kg/m2 [employer] DANNIELLE PIÑA Work Phone: [facility] 10-29-2022 13:39-0400 Body temperature 98.3 [degF] [employer] DANNIELLE PIÑA Work Phone: [facility] 10-29-2022 13:39-0400 Body weight 107.55 kg [employer] DANNIELLE PIÑA Work Phone: [facility] 10-29-2022 13:39-0400 Diastolic blood pressure 62 mm[Hg] [employer] DANNIELLE PIÑA Work Phone: [facility] 10-29-2022 13:39-0400 Heart rate 77 /min [employer] DANNIELLE PIÑA Work Phone: [facility] 10-29-2022 13:39-0400 Inhaled oxygen flow rate 4 L/min [employer] DANNIELLE PIÑA Work Phone: [facility] 10-29-2022 13:39-0400 Respiratory rate 18 /min [employer] DANNIELLE PIÑA Work Phone: [facility] 10-29-2022 13:39-0400 SaO2% (BldA) [Mass fraction] 93 % [employer] DANNIELLE PIÑA Work Phone: [facility] 10-29-2022 13:39-0400 Systolic blood pressure 124 mm[Hg] [employer] DANNIELLE PIÑA Work Phone: [facility] 09-30-2022 14:35-0400 Body mass index (BMI) [Ratio] 33.5 kg/m2 [employer] DANNIELLE PIÑA Work Phone: [facility] 09-30-2022 14:35-0400 Body temperature 96.5 [degF] [employer] DANNIELLE PIÑA Work Phone: [facility] 09-30-2022 14:35-0400 Body weight 108.89 kg [employer] DANNIELLE PIÑA Work Phone: [facility] 09-30-2022 14:35-0400 Diastolic blood pressure 56 mm[Hg] [employer] DANNIELLE PIÑA Work Phone: [facility] 09-30-2022 14:35-0400 Heart rate 92 /min [employer] DANNIELLE PIÑA Work Phone: [facility] 09-30-2022 14:35-0400 Inhaled oxygen flow rate 4 L/min [employer] DANNIELLE PIÑA Work Phone: [facility] 09-30-2022 14:35-0400 Respiratory rate 18 /min [employer] DANNIELLE PIÑA Work Phone: [facility] 09-30-2022 14:35-0400 SaO2% (BldA) [Mass fraction] 98 % [employer] DANNIELLE PIÑA Work Phone: [facility] 09-30-2022 14:35-0400 Systolic blood pressure 105 mm[Hg] [employer] DANNIELLE PIÑA Work Phone: [facility] 09-13-2022 11:37-0400 Body mass index (BMI) [Ratio] 33.3 kg/m2 [employer] DANNIELLE PIÑA Work Phone: [facility] 09-13-2022 11:37-0400 Body weight 108.4 kg [employer] DANNIELLE PIÑA Work Phone: [facility] 09-13-2022 11:37-0400 Diastolic blood pressure 71 mm[Hg] [employer] DANNIELLE PIÑA Work Phone: [facility] 09-13-2022 11:37-0400 Heart rate 74 /min [employer] DANNIELLE PIÑA Work Phone: [facility] 09-13-2022 11:37-0400 Inhaled oxygen flow rate 2 L/min [employer] DANNIELLE PIÑA Work Phone: [facility] 09-13-2022 11:37-0400 Respiratory rate 22 /min [employer] DANNIELLE PIÑA Work Phone: [facility] 09-13-2022 11:37-0400 SaO2% (BldA) [Mass fraction] 87 % [employer] DANNIELLE PIÑA Work Phone: [facility] 09-13-2022 11:37-0400 Systolic blood pressure 109 mm[Hg] [employer] DANNIELLE PIÑA Work Phone: [facility] 09-04-2022 13:18-0400 Body mass index (BMI) [Ratio] 33.2 kg/m2 [employer] DANNIELLE PIÑA Work Phone: [facility] 09-04-2022 13:18-0400 Body temperature 97.8 [degF] [employer] DANNIELLE PIÑA Work Phone: [facility] 09-04-2022 13:18-0400 Body weight 107.95 kg [employer] DANNIELLE PIÑA Work Phone: [facility] 09-04-2022 13:18-0400 Diastolic blood pressure 63 mm[Hg] [employer] DANNIELLE PIÑA Work Phone: [facility] 09-04-2022 13:18-0400 Heart rate 93 /min [employer] DANNIELLE PIÑA Work Phone: [facility] 09-04-2022 13:18-0400 Inhaled oxygen flow rate 2 L/min [employer] DANNIELLE PIÑA Work Phone: [facility] 09-04-2022 13:18-0400 Respiratory rate 18 /min [employer] DANNIELLE PIÑA Work Phone: [facility] 09-04-2022 13:18-0400 SaO2% (BldA) [Mass fraction] 93 % [employer] DANNIELLE PIÑA Work Phone: [facility] 09-04-2022 13:18-0400 Systolic blood pressure 112 mm[Hg] [employer] DANNIELLE PIÑA Work Phone: [facility] 08-29-2022 18:09-0400 Diastolic blood pressure 64 mm[Hg] [employer] DANNIELLE PIÑA Work Phone: [facility] 08-29-2022 18:09-0400 Systolic blood pressure 134 mm[Hg] [employer] DANNIELLE PIÑA Work Phone: [facility] 08-29-2022 17:30-0400 Body mass index (BMI) [Ratio] 32.6 kg/m2 [employer] DANNIELLE PIÑA Work Phone: [facility] 08-29-2022 17:30-0400 Body weight 106.14 kg [employer] DANNIELLE PIÑA Work Phone: [facility] 08-29-2022 17:30-0400 Heart rate 78 /min [employer] DANNIELLE PIÑA Work Phone: [facility] 08-29-2022 15:47-0400 Body height 180.34 cm [employer] DANNIELLE PIÑA Work Phone: [facility] 08-29-2022 15:47-0400 Body temperature 97 [degF] [employer] DANNIELLE PIÑA Work Phone: [facility] 08-29-2022 15:47-0400 Inhaled oxygen flow rate 1 L/min [employer] DANNIELLE PIÑA Work Phone: [facility] 08-29-2022 15:47-0400 Respiratory rate 19 /min [employer] DANNIELLE PIÑA Work Phone: [facility] 08-29-2022 15:47-0400 SaO2% (BldA) [Mass fraction] 90 % [employer] DANNIELLE PIÑA Work Phone: [facility] 08-14-2022 13:01-0400 Body mass index (BMI) [Ratio] 32.6 kg/m2 [employer] DANNIELLE PIÑA Work Phone: [facility] 08-14-2022 13:01-0400 Body temperature 98.4 [degF] [employer] DANNIELLE PIÑA Work Phone: [facility] 08-14-2022 13:01-0400 Body weight 106.25 kg [employer] DANNIELLE PIÑA Work Phone: [facility] 08-14-2022 13:01-0400 Diastolic blood pressure 59 mm[Hg] [employer] DANNIELLE PIÑA Work Phone: [facility] 08-14-2022 13:01-0400 Heart rate 86 /min [employer] DANNIELLE PIÑA Work Phone: [facility] 08-14-2022 13:01-0400 Inhaled oxygen flow rate 1 L/min [employer] DANNIELLE PIÑA Work Phone: [facility] 08-14-2022 13:01-0400 Respiratory rate 20 /min [employer] DANNIELLE PIÑA Work Phone: [facility] 08-14-2022 13:01-0400 SaO2% (BldA) [Mass fraction] 90 % [employer] DANNIELLE PIÑA Work Phone: [facility] 08-14-2022 13:01-0400 Systolic blood pressure 104 mm[Hg] [employer] DANNIELLE PIÑA Work Phone: [facility] 08-08-2022 13:55-0400 Body mass index (BMI) [Ratio] 32.7 kg/m2 [employer] DANNIELLE PIÑA Work Phone: [facility] 08-08-2022 13:55-0400 Body temperature 97.4 [degF] [employer] DANNILELE PIÑA Work Phone: [facility] 08-08-2022 13:55-0400 Body weight 106.39 kg [employer] DANNIELLE PIÑA Work Phone: [facility] 08-08-2022 13:55-0400 Diastolic blood pressure 66 mm[Hg] [employer] DANNIELLE PIÑA Work Phone: [facility] 08-08-2022 13:55-0400 Heart rate 66 /min [employer] DANNIELLE PIÑA Work Phone: [facility] 08-08-2022 13:55-0400 Inhaled oxygen flow rate 1 L/min [employer] DANNIELLE PIÑA Work Phone: [facility] 08-08-2022 13:55-0400 Respiratory rate 16 /min [employer] DANNIELLE PIÑA Work Phone: [facility] 08-08-2022 13:55-0400 SaO2% (BldA) [Mass fraction] 91 % [employer] DANNIELLE PIÑA Work Phone: [facility] 08-08-2022 13:55-0400 Systolic blood pressure 110 mm[Hg] [employer] DANNIELLE PIÑA Work Phone: [facility] 07-23-2022 13:25-0400 Body mass index (BMI) [Ratio] 32.5 kg/m2 [employer] DANNIELLE PIÑA Work Phone: [facility] 07-23-2022 13:25-0400 Body temperature 97.7 [degF] [employer] DANNIELLE PIÑA Work Phone: [facility] 07-23-2022 13:25-0400 Body weight 105.94 kg [employer] DANNIELLE PIÑA Work Phone: [facility] 07-23-2022 13:25-0400 Diastolic blood pressure 72 mm[Hg] [employer] DANNIELLE PIÑA Work Phone: [facility] 07-23-2022 13:25-0400 Heart rate 78 /min [employer] DANNIELLE PIÑA Work Phone: [facility] 07-23-2022 13:25-0400 Inhaled oxygen flow rate 1.5 L/min [employer] DANNIELLE PIÑA Work Phone: [facility] 07-23-2022 13:25-0400 Respiratory rate 18 /min [employer] DANNIELLE PIÑA Work Phone: [facility] 07-23-2022 13:25-0400 SaO2% (BldA) [Mass fraction] 92 % [employer] DANNIELLE PIÑA Work Phone: [facility] 07-23-2022 13:25-0400 Systolic blood pressure 116 mm[Hg] [employer] DANNIELLE PIÑA Work Phone: [facility] 05-29-2022 07:55-0400 Body height 180.34 cm [employer] DANNIELLE PIÑA Work Phone: [facility] 05-29-2022 07:55-0400 Body mass index (BMI) [Ratio] 28.3 kg/m2 [employer] DANNIELLE PIÑA Work Phone: [facility] 05-29-2022 07:55-0400 Body temperature 97.5 [degF] [employer] DANNIELLE PIÑA Work Phone: [facility] 05-29-2022 07:55-0400 Body weight 92.07 kg [employer] DANNIELLE PIÑA Work Phone: [facility] 05-29-2022 07:55-0400 Diastolic blood pressure 65 mm[Hg] [employer] DANNIELLE PIÑA Work Phone: [facility] 05-29-2022 07:55-0400 Heart rate 67 /min [employer] DANNIELLE PIÑA Work Phone: [facility] 05-29-2022 07:55-0400 Inhaled oxygen flow rate 4.5 L/min [employer] DANNIELLE PIÑA Work Phone: [facility] 05-29-2022 07:55-0400 Respiratory rate 16 /min [employer] DANNIELLE PIÑA Work Phone: [facility] 05-29-2022 07:55-0400 SaO2% (BldA) [Mass fraction] 93 % [employer] DANNIELLE PIÑA Work Phone: [facility] 05-29-2022 07:55-0400 Systolic blood pressure 136 mm[Hg] [employer] DANNIELLE PIÑA Work Phone: [facility] 05-15-2022 12:30-0400 Body height 180.34 cm [employer] DANNIELLE PIÑA Work Phone: [facility] 05-15-2022 12:30-0400 Body weight 124.73 kg [employer] DANNIELLE PIÑA Work Phone: [facility] 05-15-2022 12:30-0400 Heart rate 87 /min [employer] DANNIELLE PIÑA Work Phone: [facility] 05-15-2022 12:30-0400 Inhaled oxygen flow rate 2 L/min [employer] DANNIELLE PIÑA Work Phone: [facility] 05-15-2022 12:30-0400 SaO2% (BldA) [Mass fraction] 82 % [employer] DANNIELLE PIÑA Work Phone: [facility] 05-13-2022 14:51-0400 Body temperature 97.4 [degF] [employer] DANNIELLE PIÑA Work Phone: [facility] 05-13-2022 14:51-0400 Diastolic blood pressure 44 mm[Hg] [employer] DANNIELLE PIÑA Work Phone: [facility] 05-13-2022 14:51-0400 Heart rate 80 /min [employer] DANNIELLE PIÑA Work Phone: [facility] 05-13-2022 14:51-0400 Respiratory rate 16 /min [employer] DANNIELLE PIÑA Work Phone: [facility] 05-13-2022 14:51-0400 SaO2% (BldA) [Mass fraction] 98 % [employer] DANNIELLE PIÑA Work Phone: [facility] 05-13-2022 14:51-0400 Systolic blood pressure 101 mm[Hg] [employer] DANNIELLE PIÑA Work Phone: [facility] 05-13-2022 13:57-0400 Body mass index (BMI) [Ratio] 28.4 kg/m2 [employer] DANNIELLE PIÑA Work Phone: [facility] 05-13-2022 13:57-0400 Body weight 92.53 kg [employer] DANNIELLE PIÑA Work Phone: [facility] 05-13-2022 13:57-0400 Inhaled oxygen flow rate 4 L/min [employer] DANNIELLE PIÑA Work Phone: [facility] 04-29-2022 10:49-0500 Body mass index (BMI) [Ratio] 28.5 kg/m2 [employer] DANNIELLE PIÑA Work Phone: [facility] 04-29-2022 10:49-0500 Body temperature 98.2 [degF] [employer] DANNIELLE PIÑA Work Phone: [facility] 04-29-2022 10:49-0500 Body weight 92.98 kg [employer] DANNIELLE PIÑA Work Phone: [facility] 04-29-2022 10:49-0500 Diastolic blood pressure 61 mm[Hg] [employer] DANNIELLE PIÑA Work Phone: [facility] 04-29-2022 10:49-0500 Heart rate 99 /min [employer] DANNIELLE PIÑA Work Phone: [facility] 04-29-2022 10:49-0500 Inhaled oxygen flow rate 93 L/min [employer] DANNIELLE PIÑA Work Phone: [facility] 04-29-2022 10:49-0500 Respiratory rate 18 /min [employer] DANNIELLE PIÑA Work Phone: [facility] 04-29-2022 10:49-0500 SaO2% (BldA) [Mass fraction] 93 % [employer] DANNIELLE PIÑA Work Phone: [facility] 04-29-2022 10:49-0500 Systolic blood pressure 110 mm[Hg] [employer] DANNIELLE PIÑA Work Phone: [facility] 02-27-2022 06:28-0500 Body height 180.34 cm [employer] DANNIELLE PIÑA Work Phone: [facility] 02-27-2022 06:28-0500 Body mass index (BMI) [Ratio] 27.4 kg/m2 [employer] DANNIELLE PIÑA Work Phone: [facility] 02-27-2022 06:28-0500 Body temperature 98.1 [degF] [employer] DANNIELLE PIÑA Work Phone: [facility] 02-27-2022 06:28-0500 Body weight 89.35 kg [employer] DANNIELLE PIÑA Work Phone: [facility] 02-27-2022 06:28-0500 Diastolic blood pressure 68 mm[Hg] [employer] DANNIELLE PIÑA Work Phone: [facility] 02-27-2022 06:28-0500 Heart rate 75 /min [employer] DANNIELLE PIÑA Work Phone: [facility] 02-27-2022 06:28-0500 Inhaled oxygen flow rate 2 L/min [employer] DANNIELLE PIÑA Work Phone: [facility] 02-27-2022 06:28-0500 Respiratory rate 20 /min [employer] DANNIELLE PIÑA Work Phone: [facility] 02-27-2022 06:28-0500 SaO2% (BldA) [Mass fraction] 77 % [employer] DANNIELLE PIÑA Work Phone: [facility] 02-27-2022 06:28-0500 Systolic blood pressure 131 mm[Hg] [employer] DANNIELLE PIÑA Work Phone: [facility] 02-16-2022 10:19-0500 Inhaled oxygen flow rate 3 L/min [employer] DANNIELLE PIÑA Work Phone: [facility] 02-16-2022 09:25-0500 Body temperature 98.6 [degF] [employer] DANNIELLE PIÑA Work Phone: [facility] 02-16-2022 09:25-0500 Diastolic blood pressure 67 mm[Hg] [employer] DANNIELLE PIÑA Work Phone: [facility] 02-16-2022 09:25-0500 Heart rate 83 /min [employer] DANNIELLE PIÑA Work Phone: [facility] 02-16-2022 09:25-0500 Respiratory rate 18 /min [employer] DANNIELLE PIÑA Work Phone: [facility] 02-16-2022 09:25-0500 SaO2% (BldA) [Mass fraction] 93 % [employer] DANNIELLE PIÑA Work Phone: [facility] 02-16-2022 09:25-0500 Systolic blood pressure 121 mm[Hg] [employer] DANNIELLE PIÑA Work Phone: [facility] 02-15-2022 11:05-0500 Inhaled oxygen concentration 45 % [employer] DANNIELLE PIÑA Work Phone: [facility] 02-14-2022 22:30-0500 Body height 180.34 cm [employer] DANNIELLE PIÑA Work Phone: [facility] Work Phone: 02-14-2022 22:30-0500 Body mass index (BMI) [Ratio] 26.9 kg/m2 [employer] DANNIELLE PIÑA Work Phone: [facility] 02-14-2022 22:30-0500 Body weight 87.4 kg [employer] DANNIELLE PIÑA Work Phone: [facility] 02-14-2022 21:03-0500 Body temperature 98.9 [degF] [employer]C DANNIELLE PIÑA Work Phone: [facility] Work Phone: 02-14-2022 21:03-0500 Diastolic blood pressure 59 mm[Hg] [employer] DANNIELLE PIÑA Work Phone: [facility] Work Phone: 02-14-2022 21:03-0500 Heart rate 64 /min [employer]C DANNIELLE PÑIA Work Phone: [facility] Work Phone: 02-14-2022 21:03-0500 Inhaled oxygen flow rate 4 L/min [employer] DANNIELLE PIÑA Work Phone: [facility] Work Phone: 02-14-2022 21:03-0500 Respiratory rate 16 /min [employer] DANNIELLE PIÑA Work Phone: [facility] Work Phone: 02-14-2022 21:03-0500 SaO2% (BldA) [Mass fraction] 94 % [employer] DANNIELLE PIÑA Work Phone: [facility] Work Phone: 02-14-2022 21:03-0500 Systolic blood pressure 117 mm[Hg] [employer] DANNIELLE PIÑA Work Phone: [facility] Work Phone: 02-14-2022 16:26-0500 Body height 180.34 cm [employer] DANNIELLE PIÑA Work Phone: [facility] Work Phone: 02-14-2022 16:26-0500 Body mass index (BMI) [Ratio] 27.7 kg/m2 [employer] DANNIELLE PIÑA Work Phone: [facility] Work Phone: 02-14-2022 16:26-0500 Body weight 90.2 kg [employer] DANNIELLE PIÑA Work Phone: [facility] Work Phone: 02-05-2022 11:33-0500 Body mass index (BMI) [Ratio] 27.8 kg/m2 [employer] DANNIELLE PIÑA Work Phone: [facility] 02-05-2022 11:33-0500 Body temperature 98.1 [degF] [employer] DANNIELLE PIÑA Work Phone: [facility] 02-05-2022 11:33-0500 Body weight 90.77 kg [employer] DANNIELLE PIÑA Work Phone: [facility] 02-05-2022 11:33-0500 Diastolic blood pressure 69 mm[Hg] [employer] DANNIELLE PIÑA Work Phone: [facility] 02-05-2022 11:33-0500 Heart rate 75 /min [employer] DANNIELLE PIÑA Work Phone: [facility] 02-05-2022 11:33-0500 Respiratory rate 17 /min [employer] DANNIELLE PIÑA Work Phone: [facility] 02-05-2022 11:33-0500 SaO2% (BldA) [Mass fraction] 92 % [employer] DANNIELLE PIÑA Work Phone: [facility] 02-05-2022 11:33-0500 Systolic blood pressure 124 mm[Hg] [employer] DANNIELLE PIÑA Work Phone: [facility] 01-28-2022 12:17-0500 Body temperature 97.6 [degF] [employer] DANNIELLE PIÑA Work Phone: [facility] 01-28-2022 12:17-0500 Diastolic blood pressure 61 mm[Hg] [employer] DANNIELLE PIÑA Work Phone: [facility] 01-28-2022 12:17-0500 Heart rate 57 /min [employer] DANNIELLE PIÑA Work Phone: [facility] 01-28-2022 12:17-0500 Inhaled oxygen flow rate 4 L/min [employer] DANNIELLE PIÑA Work Phone: [facility] 01-28-2022 12:17-0500 Respiratory rate 16 /min [employer] DANNIELLE PIÑA Work Phone: [facility] 01-28-2022 12:17-0500 SaO2% (BldA) [Mass fraction] 97 % [employer] DANNIELLE PIÑA Work Phone: [facility] 01-28-2022 12:17-0500 Systolic blood pressure 126 mm[Hg] [employer] DANNIELLE PIÑA Work Phone: [facility] 01-28-2022 10:04-0500 Body mass index (BMI) [Ratio] 27.8 kg/m2 [employer] DANNIELLE PIÑA Work Phone: [facility] 01-28-2022 10:04-0500 Body weight 90.71 kg [employer] DANNIELLE PIÑA Work Phone: [facility] 01-14-2022 12:20-0500 Body temperature 97.8 [degF] Dr. Donna Will Work Phone: [facility] Work Phone: 01-14-2022 12:20-0500 Diastolic blood pressure 67 mm[Hg] Dr. Donna Will Work Phone: [facility] Work Phone: 01-14-2022 12:20-0500 Heart rate 80 /min Dr. Donna Will Work Phone: [facility] Work Phone: 01-14-2022 12:20-0500 Respiratory rate 16 /min Dr. Donna Will Work Phone: [facility] Work Phone: 01-14-2022 12:20-0500 SaO2% (BldA) [Mass fraction] 96 % Dr. Donna Will Work Phone: [facility] Work Phone: 01-14-2022 12:20-0500 Systolic blood pressure 140 mm[Hg] Dr. Donna Will Work Phone: [facility] Work Phone: 01-14-2022 10:11-0500 Body height 180.[address] Donna Will Work Phone: [facility] Work Phone: 01-14-2022 10:11-0500 Inhaled oxygen flow rate 4 L/min Dr. Donna Will Work Phone: [facility] Work Phone: 01-07-2022 10:48-0500 Body mass index (BMI) [Ratio] 25.9 kg/m2 Dr. Donna Will Work Phone: [facility] Work Phone: 01-07-2022 10:48-0500 Body weight 84.[address] Donna Will Work Phone: [facility] Work Phone: 12-26-2021 14:21-0400 Body height 180.[address] Donna Will Work Phone: [facility] Work Phone: 12-26-2021 14:13-0400 Body mass index (BMI) [Ratio] 25.9 kg/m2 Dr. Donna Will Work Phone: [facility] 12-26-2021 14:13-0400 Body temperature 98.6 [degF] Dr. Donna Will Work Phone: [facility] 12-26-2021 14:13-0400 Body weight 84.[address] Donna Will Work Phone: [facility] 12-26-2021 14:13-0400 Diastolic blood pressure 65 mm[Hg] Dr. Donna Will Work Phone: [facility] 12-26-2021 14:13-0400 Heart rate 77 /min Dr. Donna Will Work Phone: [facility] 12-26-2021 14:13-0400 Respiratory rate 17 /min Dr. Donna Will Work Phone: [facility] 12-26-2021 14:13-0400 SaO2% (BldA) [Mass fraction] 89 % Dr. Donna Will Work Phone: [facility] 12-26-2021 14:13-0400 Systolic blood pressure 131 mm[Hg] Dr. Donna Will Work Phone: [facility] 12-11-2021 14:07-0400 Body temperature 98 [degF] Dr. Donna Will Work Phone: [facility] 12-11-2021 14:07-0400 Diastolic blood pressure 63 mm[Hg] Dr. Donna Will Work Phone: [facility] 12-11-2021 14:07-0400 Heart rate 72 /min Dr. Donna Will Work Phone: [facility] 12-11-2021 14:07-0400 Inhaled oxygen flow rate 2 L/min Dr. Donna Will Work Phone: [facility] 12-11-2021 14:07-0400 Respiratory rate 18 /min Dr. Donna Will Work Phone: [facility] 12-11-2021 14:07-0400 SaO2% (BldA) [Mass fraction] 94 % Dr. Donna Will Work Phone: [facility] 12-11-2021 14:07-0400 Systolic blood pressure 144 mm[Hg] Dr. Donna Will Work Phone: [facility] 12-11-2021 06:00-0400 Body weight 85.[address] Donna Will Work Phone: [facility] 12-10-2021 09:37-0400 Body height 180.[address] Donna Will Work Phone: [facility] Work Phone: 12-10-2021 09:37-0400 Body mass index (BMI) [Ratio] 26.5 kg/m2 Dr. Donna Will Work Phone: [facility] 12-08-2021 19:46-0400 Body temperature 99.2 [degF] Dr. Donna Will Work Phone: [facility] Work Phone: 12-08-2021 19:46-0400 Diastolic blood pressure 62 mm[Hg] Dr. Donna Will Work Phone: [facility] Work Phone: 12-08-2021 19:46-0400 Heart rate 94 /min Dr. Donna Will Work Phone: [facility] Work Phone: 12-08-2021 19:46-0400 Inhaled oxygen flow rate 5 L/min Dr. Donna Will Work Phone: [facility] Work Phone: 12-08-2021 19:46-0400 Respiratory rate 21 /min Dr. Donna Will Work Phone: [facility] Work Phone: 12-08-2021 19:46-0400 SaO2% (BldA) [Mass fraction] 95 % Dr. Donna Will Work Phone: [facility] Work Phone: 12-08-2021 19:46-0400 Systolic blood pressure 121 mm[Hg] Dr. Donna Will Work Phone: [facility] Work Phone: 12-08-2021 17:06-0400 Body height 180.[address] Donna Will Work Phone: [facility] Work Phone: 12-08-2021 17:06-0400 Body mass index (BMI) [Ratio] 26.9 kg/m2 Dr. Donna Will Work Phone: [facility] Work Phone: 12-08-2021 17:06-0400 Body weight 87.[address] Donna Will Work Phone: [facility] Work Phone: 10-26-2021 11:03-0400 Body temperature 97.8 [degF] Dr. Donna Will Work Phone: [facility] Work Phone: 10-26-2021 11:03-0400 Diastolic blood pressure 68 mm[Hg] Dr. Donna Will Work Phone: [facility] Work Phone: 10-26-2021 11:03-0400 Heart rate 68 /min Dr. Donna Will Work Phone: [facility] Work Phone: 10-26-2021 11:03-0400 Inhaled oxygen flow rate 3 L/min Dr. Donna Will Work Phone: [facility] Work Phone: 10-26-2021 11:03-0400 Respiratory rate 18 /min Dr. Donna Will Work Phone: [facility] Work Phone: 10-26-2021 11:03-0400 SaO2% (BldA) [Mass fraction] 94 % Dr. Donna Will Work Phone: [facility] Work Phone: 10-26-2021 11:03-0400 Systolic blood pressure 137 mm[Hg] Dr. Donna Will Work Phone: [facility] Work Phone: 10-25-2021 13:51-0400 Body height 180.[address] Donna Will Work Phone: [facility] Work Phone: 10-25-2021 13:51-0400 Body mass index (BMI) [Ratio] 25.9 kg/m2 Dr. Donna Will Work Phone: [facility] Work Phone: 10-25-2021 13:51-0400 Body weight 84.[address] Donna Will Work Phone: [facility] Work Phone: 10-23-2021 08:03-0400 Body mass index (BMI) [Ratio] 26.9 kg/m2 Dr. Donna Will Work Phone: [facility] Work Phone: 10-23-2021 08:03-0400 Body temperature 98 [degF] Dr. Donna Will Work Phone: [facility] Work Phone: 10-23-2021 08:03-0400 Body weight 87.[address] Donna Will Work Phone: [facility] Work Phone: 10-23-2021 08:03-0400 Diastolic blood pressure 63 mm[Hg] Dr. Donna Will Work Phone: [facility] Work Phone: 10-23-2021 08:03-0400 Heart rate 96 /min Dr. Donna Will Work Phone: [facility] Work Phone: 10-23-2021 08:03-0400 Inhaled oxygen flow rate 3 L/min Dr. Donna Will Work Phone: [facility] Work Phone: 10-23-2021 08:03-0400 Respiratory rate 18 /min Dr. Donna Will Work Phone: [facility] Work Phone: 10-23-2021 08:03-0400 SaO2% (BldA) [Mass fraction] 81 % Dr. Donna Will Work Phone: [facility] Work Phone: 10-23-2021 08:03-0400 Systolic blood pressure 107 mm[Hg] Dr. Donna Will Work Phone: [facility] Work Phone: 10-16-2021 15:32-0400 Body mass index (BMI) [Ratio] 25.9 kg/m2 Dr. Donna Will Work Phone: [facility] Work Phone: 10-16-2021 15:32-0400 Body temperature 98.3 [degF] Dr. Donna Will Work Phone: [facility] Work Phone: 10-16-2021 15:32-0400 Body weight 84.[address] Donna Will Work Phone: [facility] Work Phone: 10-16-2021 15:32-0400 Diastolic blood pressure 70 mm[Hg] Dr. Donna Will Work Phone: [facility] Work Phone: 10-16-2021 15:32-0400 Heart rate 79 /min Dr. Donna Will Work Phone: [facility] Work Phone: 10-16-2021 15:32-0400 Respiratory rate 17 /min Dr. Donna Will Work Phone: [facility] Work Phone: 10-16-2021 15:32-0400 SaO2% (BldA) [Mass fraction] 95 % Dr. Donna Will Work Phone: [facility] Work Phone: 10-16-2021 15:32-0400 Systolic blood pressure 118 mm[Hg] Dr. Donna Will Work Phone: [facility] Work Phone: 10-09-2021 14:14-0400 Body mass index (BMI) [Ratio] 26.4 kg/m2 Dr. Donna Will Work Phone: [facility] Work Phone: 10-09-2021 14:14-0400 Body weight 86.[address] Donna Will Work Phone: [facility] Work Phone: 10-09-2021 14:14-0400 Diastolic blood pressure 69 mm[Hg] Dr. Donna Will Work Phone: [facility] Work Phone: 10-09-2021 14:14-0400 Heart rate 88 /min Dr. Donna Will Work Phone: [facility] Work Phone: 10-09-2021 14:14-0400 Inhaled oxygen flow rate 2.5 L/min Dr. Donna Will Work Phone: [facility] Work Phone: 10-09-2021 14:14-0400 Respiratory rate 18 /min Dr. Donna Will Work Phone: [facility] Work Phone: 10-09-2021 14:14-0400 SaO2% (BldA) [Mass fraction] 98 % Dr. Donna Will Work Phone: [facility] Work Phone: 10-09-2021 14:14-0400 Systolic blood pressure 123 mm[Hg] Dr. Donna Will Work Phone: [facility] Work Phone: 10-02-2021 14:00-0400 Respiratory rate 24 /min Dr. Donna Will Work Phone: [facility] Work Phone: 10-02-2021 13:50-0400 Body temperature 98.1 [degF] Dr. Donna Will Work Phone: [facility] Work Phone: 10-02-2021 13:50-0400 Diastolic blood pressure 56 mm[Hg] Dr. Donna Will Work Phone: [facility] Work Phone: 10-02-2021 13:50-0400 Heart rate 89 /min Dr. Donna Will Work Phone: [facility] Work Phone: 10-02-2021 13:50-0400 Inhaled oxygen flow rate 3 L/min Dr. Donna Will Work Phone: [facility] Work Phone: 10-02-2021 13:50-0400 SaO2% (BldA) [Mass fraction] 97 % Dr. Donna Will Work Phone: [facility] Work Phone: 10-02-2021 13:50-0400 Systolic blood pressure 114 mm[Hg] Dr. Donna Will Work Phone: [facility] Work Phone: 10-02-2021 06:00-0400 Body weight 83.[address] Donna Will Work Phone: [facility] Work Phone: 10-01-2021 19:46-0400 Body height 180.[address] Donna Will Work Phone: [facility] Work Phone: 10-01-2021 19:46-0400 Body mass index (BMI) [Ratio] 25.7 kg/m2 Dr. Donna Will Work Phone: [facility] Work Phone: 10-01-2021 18:00-0400 Body temperature 98.4 [degF] Dr. Donna Will Work Phone: [facility] Work Phone: 10-01-2021 18:00-0400 Diastolic blood pressure 58 mm[Hg] Dr. Donna Will Work Phone: [facility] Work Phone: 10-01-2021 18:00-0400 Heart rate 84 /min Dr. Donna Will Work Phone: [facility] Work Phone: 10-01-2021 18:00-0400 Inhaled oxygen flow rate 4 L/min Dr. Donna Will Work Phone: [facility] Work Phone: 10-01-2021 18:00-0400 Respiratory rate 19 /min Dr. Donna Will Work Phone: [facility] Work Phone: 10-01-2021 18:00-0400 SaO2% (BldA) [Mass fraction] 95 % Dr. Donna Will Work Phone: [facility] Work Phone: 10-01-2021 18:00-0400 Systolic blood pressure 114 mm[Hg] Dr. Donna Will Work Phone: [facility] Work Phone: 10-01-2021 14:04-0400 Body height 180.[address] Donna Will Work Phone: [facility] Work Phone: 10-01-2021 14:04-0400 Body mass index (BMI) [Ratio] 26.1 kg/m2 Dr. Donna Will Work Phone: [facility] Work Phone: 10-01-2021 14:04-0400 Body weight 84.[address] Donna Will Work Phone: [facility] Work Phone: 09-03-2021 13:52-0400 Body temperature 97.5 [degF] Dr. Donna Will Work Phone: [facility] Work Phone: 09-03-2021 13:52-0400 Diastolic blood pressure 75 mm[Hg] Dr. Donna Will Work Phone: [facility] Work Phone: 09-03-2021 13:52-0400 Heart rate 79 /min Dr. Donna Will Work Phone: [facility] Work Phone: 09-03-2021 13:52-0400 Inhaled oxygen flow rate 4 L/min Dr. Donna Will Work Phone: [facility] Work Phone: 09-03-2021 13:52-0400 Respiratory rate 18 /min Dr. Donna Will Work Phone: [facility] Work Phone: 09-03-2021 13:52-0400 SaO2% (BldA) [Mass fraction] 97 % Dr. Donna Will Work Phone: [facility] Work Phone: 09-03-2021 13:52-0400 Systolic blood pressure 127 mm[Hg] Dr. Donna Will Work Phone: [facility] Work Phone: 08-21-2021 12:06-0400 Body height 187.[address] Donna Will Work Phone: [facility] Work Phone: 08-07-2021 18:22-0400 Body temperature 97.8 [degF] Dr. Donna Will Work Phone: [facility] Work Phone: 08-07-2021 18:22-0400 Diastolic blood pressure 76 mm[Hg] Dr. Donna Will Work Phone: [facility] Work Phone: 08-07-2021 18:22-0400 Heart rate 100 /min Dr. Donna Will Work Phone: [facility] Work Phone: 08-07-2021 18:22-0400 Inhaled oxygen flow rate 4 L/min Dr. Donna Will Work Phone: [facility] Work Phone: 08-07-2021 18:22-0400 Respiratory rate 18 /min Dr. Donna Will Work Phone: [facility] Work Phone: 08-07-2021 18:22-0400 SaO2% (BldA) [Mass fraction] 98 % Dr. Donna Will Work Phone: [facility] Work Phone: 08-07-2021 18:22-0400 Systolic blood pressure 128 mm[Hg] Dr. Donna Will Work Phone: [facility] Work Phone: 08-07-2021 11:11-0400 Body height 180.[address] Donna Will Work Phone: [facility] Work Phone: 08-07-2021 11:11-0400 Body weight 80.[address] Donna Will Work Phone: [facility] Work Phone: 08-06-2021 18:56-0400 Heart rate 107 /min Dr. Donna Will Work Phone: [facility] Work Phone: 08-06-2021 18:56-0400 Respiratory rate 19 /min Dr. Donna Will Work Phone: [facility] Work Phone: 08-06-2021 17:44-0400 SaO2% (BldA) [Mass fraction] 100 % Dr. Donna Will Work Phone: [facility] Work Phone: 08-06-2021 16:34-0400 Body height 180.[address] Donna Will Work Phone: [facility] Work Phone: 08-06-2021 16:34-0400 Body mass index (BMI) [Ratio] 24.8 kg/m2 Dr. Donna Will Work Phone: [facility] Work Phone: 08-06-2021 16:34-0400 Body weight 80.[address] Donna Will Work Phone: [facility] Work Phone: 08-06-2021 16:33-0400 Body temperature 98 [degF] Dr. Donna Will Work Phone: [facility] Work Phone: 08-06-2021 16:33-0400 Diastolic blood pressure 100 mm[Hg] Dr. Donna Will Work Phone: [facility] Work Phone: 08-06-2021 16:33-0400 Systolic blood pressure 141 mm[Hg] Dr. Donna Will Work Phone: [facility] Work Phone: 08-06-2021 15:51-0400 Body temperature 97.8 [degF] Dr. Donna Will Work Phone: [facility] Work Phone: 08-06-2021 15:51-0400 Diastolic blood pressure 64 mm[Hg] Dr. Donna Will Work Phone: [facility] Work Phone: 08-06-2021 15:51-0400 Heart rate 102 /min Dr. Donna Will Work Phone: [facility] Work Phone: 08-06-2021 15:51-0400 Respiratory rate 18 /min Dr. Donna Will Work Phone: [facility] Work Phone: 08-06-2021 15:51-0400 SaO2% (BldA) [Mass fraction] 97 % Dr. Donna Will Work Phone: [facility] Work Phone: 08-06-2021 15:51-0400 Systolic blood pressure 122 mm[Hg] Dr. Donna Will Work Phone: [facility] Work Phone: 08-06-2021 12:07-0400 Body height 180.[address] Donna Will Work Phone: [facility] Work Phone: 08-06-2021 12:07-0400 Body mass index (BMI) [Ratio] 25.2 kg/m2 Dr. Donna Will Work Phone: [facility] Work Phone: 08-06-2021 12:07-0400 Body weight 82.[address] Donna Will Work Phone: [facility] Work Phone: 07-24-2021 08:49-0400 Body height 187.[address] Donna Will Work Phone: [facility] Work Phone: 07-24-2021 08:49-0400 Body mass index (BMI) [Ratio] 23.1 kg/m2 Dr. Donna Will Work Phone: [facility] Work Phone: 07-24-2021 08:49-0400 Body temperature 97.1 [degF] Dr. Donna Will Work Phone: [facility] Work Phone: 07-24-2021 08:49-0400 Body weight 81.[address] Donna Will Work Phone: [facility] Work Phone: 07-24-2021 08:49-0400 Diastolic blood pressure 60 mm[Hg] Dr. Donna Will Work Phone: [facility] Work Phone: 07-24-2021 08:49-0400 Heart rate 91 /min Dr. Donna Will Work Phone: [facility] Work Phone: 07-24-2021 08:49-0400 Inhaled oxygen flow rate 3 L/min Dr. Donna Will Work Phone: [facility] Work Phone: 07-24-2021 08:49-0400 Respiratory rate 14 /min Dr. Donna Will Work Phone: [facility] Work Phone: 07-24-2021 08:49-0400 SaO2% (BldA) [Mass fraction] 93 % Dr. Donna Will Work Phone: [facility] Work Phone: 07-24-2021 08:49-0400 Systolic blood pressure 94 mm[Hg] Dr. Donna Will Work Phone: [facility] Work Phone: 07-24-2021 07:42-0400 Body mass index (BMI) [Ratio] 23.1 kg/m2 Dr. Donna Will Work Phone: [facility] Work Phone: 07-24-2021 07:42-0400 Body temperature 97 [degF] Dr. Donna Will Work Phone: [facility] Work Phone: 07-24-2021 07:42-0400 Body weight 81.[address] Donna Will Work Phone: [facility] Work Phone: 07-24-2021 07:42-0400 Diastolic blood pressure 46 mm[Hg] Dr. Donna Will Work Phone: [facility] Work Phone: 07-24-2021 07:42-0400 Heart rate 79 /min Dr. Donna Wlil Work Phone: [facility] Work Phone: 07-24-2021 07:42-0400 Inhaled oxygen flow rate 3 L/min Dr. Donna Will Work Phone: [facility] Work Phone: 07-24-2021 07:42-0400 Respiratory rate 16 /min Dr. Donna Will Work Phone: [facility] Work Phone: 07-24-2021 07:42-0400 SaO2% (BldA) [Mass fraction] 93 % Dr. Donna Will Work Phone: [facility] Work Phone: 07-24-2021 07:42-0400 Systolic blood pressure 94 mm[Hg] Dr. Donna Will Work Phone: [facility] Work Phone: 07-24-2021 07:42-0400 Body mass index (BMI) [Ratio] 23.1 kg/m2 Dr. Donna Will Work Phone: [facility] Work Phone: 07-24-2021 07:42-0400 Body temperature 97 [degF] Dr. Donna Will Work Phone: [facility] Work Phone: 07-24-2021 07:42-0400 Body weight 81.[address] Donna Will Work Phone: [facility] Work Phone: 07-24-2021 07:42-0400 Diastolic blood pressure 46 mm[Hg] Dr. Donna Will Work Phone: [facility] Work Phone: 07-24-2021 07:42-0400 Heart rate 79 /min Dr. Donna Will Work Phone: [facility] Work Phone: 07-24-2021 07:42-0400 Respiratory rate 16 /min Dr. Donna Will Work Phone: [facility] Work Phone: 07-24-2021 07:42-0400 SaO2% (BldA) [Mass fraction] 93 % Dr. Donna Will Work Phone: [facility] Work Phone: 07-24-2021 07:42-0400 Systolic blood pressure 94 mm[Hg] Dr. Donna Will Work Phone: [facility] Work Phone: 06-25-2021 13:34-0400 Body mass index (BMI) [Ratio] 24.6 kg/m2 Dr. Donna Will Work Phone: [facility] Work Phone: 06-25-2021 13:34-0400 Body temperature 97.3 [degF] Dr. Donna Will Work Phone: [facility] Work Phone: 06-25-2021 13:34-0400 Body weight 87.[address] Donna Will Work Phone: [facility] Work Phone: 06-25-2021 13:34-0400 Diastolic blood pressure 65 mm[Hg] Dr. Donna Will Work Phone: [facility] Work Phone: 06-25-2021 13:34-0400 Heart rate 85 /min Dr. Donna Will Work Phone: [facility] Work Phone: 06-25-2021 13:34-0400 Inhaled oxygen flow rate 4 L/min Dr. Donna Will Work Phone: [facility] Work Phone: 06-25-2021 13:34-0400 Respiratory rate 16 /min Dr. Donna Will Work Phone: [facility] Work Phone: 06-25-2021 13:34-0400 SaO2% (BldA) [Mass fraction] 93 % Dr. Donna Will Work Phone: [facility] Work Phone: 06-25-2021 13:34-0400 Systolic blood pressure 110 mm[Hg] Dr. Donna Will Work Phone: [facility] Work Phone: 06-25-2021 13:34-0400 Body mass index (BMI) [Ratio] 24.6 kg/m2 Dr. Donna Will Work Phone: [facility] Work Phone: 06-25-2021 13:34-0400 Body temperature 97.3 [degF] Dr. Donna Will Work Phone: [facility] Work Phone: 06-25-2021 13:34-0400 Body weight 87.[address] Donna Will Work Phone: [facility] Work Phone: 06-25-2021 13:34-0400 Diastolic blood pressure 65 mm[Hg] Dr. Donna Will Work Phone: [facility] Work Phone: 06-25-2021 13:34-0400 Heart rate 85 /min Dr. Donna Will Work Phone: [facility] Work Phone: 06-25-2021 13:34-0400 Respiratory rate 16 /min Dr. Donna Will Work Phone: [facility] Work Phone: 06-25-2021 13:34-0400 SaO2% (BldA) [Mass fraction] 93 % Dr. Donna Will Work Phone: [facility] Work Phone: 06-25-2021 13:34-0400 Systolic blood pressure 110 mm[Hg] Dr. Donna Will Work Phone: [facility] Work Phone: 05-29-2021 08:46-0400 Body mass index (BMI) [Ratio] 25.1 kg/m2 Dr. Donna Will Work Phone: [facility] Work Phone: 05-29-2021 08:46-0400 Body temperature 96.5 [degF] Dr. Donna Will Work Phone: [facility] Work Phone: 05-29-2021 08:46-0400 Body weight 88.[address] Donna Will Work Phone: [facility] Work Phone: 05-29-2021 08:46-0400 Diastolic blood pressure 84 mm[Hg] Dr. Donna Will Work Phone: [facility] Work Phone: 05-29-2021 08:46-0400 Heart rate 92 /min Dr. Donna Will Work Phone: [facility] Work Phone: 05-29-2021 08:46-0400 Respiratory rate 14 /min Dr. Donna Will Work Phone: [facility] Work Phone: 05-29-2021 08:46-0400 SaO2% (BldA) [Mass fraction] 98 % Dr. Donna Will Work Phone: [facility] Work Phone: 05-29-2021 08:46-0400 Systolic blood pressure 128 mm[Hg] Dr. Donna Will Work Phone: [facility] Work Phone: 05-29-2021 08:46-0400 Body height 187.[address] Donna Will Work Phone: [facility] Work Phone: 05-29-2021 08:46-0400 Body mass index (BMI) [Ratio] 25.1 kg/m2 Dr. Donna Will Work Phone: [facility] Work Phone: 05-29-2021 08:46-0400 Body temperature 96.5 [degF] Dr. Donna Will Work Phone: [facility] Work Phone: 05-29-2021 08:46-0400 Body weight 88.[address] Donna Will Work Phone: [facility] Work Phone: 05-29-2021 08:46-0400 Diastolic blood pressure 84 mm[Hg] Dr. Donna Will Work Phone: [facility] Work Phone: 05-29-2021 08:46-0400 Heart rate 92 /min Dr. Donna Will Work Phone: [facility] Work Phone: 05-29-2021 08:46-0400 Respiratory rate 14 /min Dr. Donna Will Work Phone: [facility] Work Phone: 05-29-2021 08:46-0400 SaO2% (BldA) [Mass fraction] 98 % Dr. Donna Will Work Phone: [facility] Work Phone: 05-29-2021 08:46-0400 Systolic blood pressure 128 mm[Hg] Dr. Donna Will Work Phone: [facility] Work Phone: 05-18-2021 10:00-0400 Heart rate 73 /min Dr. Donna Will Work Phone: [facility] Work Phone: 05-18-2021 10:00-0400 Respiratory rate 18 /min Dr. Donna Will Work Phone: [facility] Work Phone: 05-18-2021 10:00-0400 SaO2% (BldA) [Mass fraction] 97 % Dr. Donna Will Work Phone: [facility] Work Phone: 05-18-2021 08:07-0400 Inhaled oxygen flow rate 4 L/min Dr. Donna Will Work Phone: [facility] Work Phone: 05-18-2021 05:04-0400 Diastolic blood pressure 63 mm[Hg] Dr. Donna Will Work Phone: [facility] Work Phone: 05-18-2021 05:04-0400 Systolic blood pressure 112 mm[Hg] Dr. Donna Will Work Phone: [facility] Work Phone: 05-17-2021 14:47-0400 Body temperature 96.9 [degF] Dr. Donna Will Work Phone: [facility] Work Phone: 05-15-2021 10:13-0400 Body weight 87.[address] Donna Will Work Phone: [facility] Work Phone: 05-14-2021 20:14-0400 Inhaled oxygen concentration 98 % Dr. Donna Will Work Phone: [facility] Work Phone: 05-04-2021 14:55-0500 Body mass index (BMI) [Ratio] 26.1 kg/m2 Dr. Donna Will Work Phone: [facility] Work Phone: 05-04-2021 13:55-0500 Body mass index (BMI) [Ratio] 26.1 kg/m2 Dr. Donna Will Work Phone: [facility] Work Phone: 05-04-2021 12:18-0500 SaO2% (BldA) [Mass fraction] 92 % Dr. Donna Will Work Phone: [facility] Work Phone: 05-04-2021 10:24-0500 Body temperature 98.5 [degF] Dr. Donna Will Work Phone: [facility] Work Phone: 05-04-2021 10:24-0500 Diastolic blood pressure 76 mm[Hg] Dr. Donna Will Work Phone: [facility] Work Phone: 05-04-2021 10:24-0500 Heart rate 98 /min Dr. Donna Will Work Phone: [facility] Work Phone: 05-04-2021 10:24-0500 Respiratory rate 18 /min Dr. Donna Will Work Phone: [facility] Work Phone: 05-04-2021 10:24-0500 Systolic blood pressure 134 mm[Hg] Dr. Donna Will Work Phone: [facility] Work Phone: 05-04-2021 05:00-0500 Body weight [address] Donna Will Work Phone: [facility] Work Phone: 05-02-2021 12:57-0500 Body mass index (BMI) [Ratio] 28.8 kg/m2 Dr. Donna Will Work Phone: [facility] Work Phone: 04-29-2021 05:17-0500 Diastolic blood pressure 54 mm[Hg] Dr. Donna Will Work Phone: [facility] Work Phone: 04-29-2021 05:17-0500 Heart rate 70 /min Dr. Donna Will Work Phone: [facility] Work Phone: 04-29-2021 05:17-0500 Systolic blood pressure 108 mm[Hg] Dr. Donna Wlil Work Phone: [facility] Work Phone: 04-29-2021 01:10-0500 Respiratory rate 20 /min Dr. Donna Will Work Phone: [facility] Work Phone: 04-29-2021 01:10-0500 SaO2% (BldA) [Mass fraction] 92 % Dr. Donna Will Work Phone: [facility] Work Phone: 04-29-2021 00:34-0500 Body temperature 98.6 [degF] Dr. Donna Will Work Phone: [facility] Work Phone: 04-28-2021 20:00-0500 Inhaled oxygen concentration 4 % Dr. Donna Will Work Phone: [facility] Work Phone: 04-27-2021 12:51-0500 Body weight 89.[address] Donna Will Work Phone: [facility] Work Phone: 04-26-2021 15:23-0500 Body mass index (BMI) [Ratio] 28.4 kg/m2 Dr. Donna Will Work Phone: [facility] Work Phone: 04-26-2021 14:43-0500 Body temperature 99.2 [degF] Dr. Donna Will Work Phone: [facility] Work Phone: 04-26-2021 14:43-0500 Diastolic blood pressure 62 mm[Hg] Dr. Donna Will Work Phone: [facility] Work Phone: 04-26-2021 14:43-0500 Heart rate 96 /min Dr. Donna Will Work Phone: [facility] Work Phone: 04-26-2021 14:43-0500 Respiratory rate 16 /min Dr. Donna Will Work Phone: [facility] Work Phone: 04-26-2021 14:43-0500 SaO2% (BldA) [Mass fraction] 93 % Dr. Donna Will Work Phone: [facility] Work Phone: 04-26-2021 14:43-0500 Systolic blood pressure 127 mm[Hg] Dr. Donna Will Work Phone: [facility] Work Phone: 04-25-2021 13:20-0500 Body weight [address] Donna Will Work Phone: [facility] Work Phone: 04-22-2021 16:37-0500 Inhaled oxygen concentration 35 % Dr. Donna Will Work Phone: [facility] Work Phone: 04-21-2021 19:15-0500 Body mass index (BMI) [Ratio] 27.7 kg/m2 Dr. Donna Will Work Phone: [facility] Work Phone: 04-19-2021 13:21-0500 Body mass index (BMI) [Ratio] 28.2 kg/m2 Dr. Donna Will Work Phone: [facility] Work Phone: 04-19-2021 13:21-0500 Body temperature 95.3 [degF] Dr. Donna Will Work Phone: [facility] Work Phone: 04-19-2021 13:21-0500 Body weight 89.[address] Donna Will Work Phone: [facility] Work Phone: 04-19-2021 13:21-0500 Diastolic blood pressure 64 mm[Hg] Dr. Donna Will Work Phone: [facility] Work Phone: 04-19-2021 13:21-0500 Heart rate 77 /min Dr. Donna Will Work Phone: [facility] Work Phone: 04-19-2021 13:21-0500 Respiratory rate 18 /min Dr. Donna Will Work Phone: [facility] Work Phone: 04-19-2021 13:21-0500 SaO2% (BldA) [Mass fraction] 94 % Dr. Donna Will Work Phone: [facility] Work Phone: 04-19-2021 13:21-0500 Systolic blood pressure 128 mm[Hg] Dr. Donna Will Work Phone: [facility] Work Phone: 04-11-2021 13:53-0500 Heart rate 88 /min Dr. Donna Will Work Phone: [facility] Work Phone: 04-11-2021 13:53-0500 Respiratory rate 20 /min Dr. Donna Will Work Phone: [facility] Work Phone: 04-11-2021 13:20-0500 SaO2% (BldA) [Mass fraction] 92 % Dr. Donna Will Work Phone: [facility] Work Phone: 04-11-2021 10:40-0500 Body temperature 97.9 [degF] Dr. Donna Will Work Phone: [facility] Work Phone: 04-11-2021 10:20-0500 Diastolic blood pressure 52 mm[Hg] Dr. Donna Will Work Phone: [facility] Work Phone: 04-11-2021 10:20-0500 Systolic blood pressure 111 mm[Hg] Dr. Donna Will Work Phone: [facility] Work Phone: 04-09-2021 14:39-0500 Body weight 93.[address] Donna Will Work Phone: [facility] Work Phone: 04-08-2021 16:22-0500 Body mass index (BMI) [Ratio] 29.6 kg/m2 Dr. Donna Will Work Phone: [facility] Work Phone: 03-28-2021 08:13-0500 Body temperature 95.9 [degF] Dr. Donna Will Work Phone: [facility] Work Phone: 03-28-2021 08:13-0500 Body weight 97.[address] Donna Will Work Phone: [facility] Work Phone: 03-28-2021 08:13-0500 Diastolic blood pressure 60 mm[Hg] Dr. Donna Will Work Phone: [facility] Work Phone: 03-28-2021 08:13-0500 Heart rate 74 /min Dr. Donna Will Work Phone: [facility] Work Phone: 03-28-2021 08:13-0500 Respiratory rate 16 /min Dr. Donna Will Work Phone: [facility] Work Phone: 03-28-2021 08:13-0500 SaO2% (BldA) [Mass fraction] 93 % Dr. Donna Will Work Phone: [facility] Work Phone: 03-28-2021 08:13-0500 Systolic blood pressure 118 mm[Hg] Dr. Donna Will Work Phone: [facility] Work Phone: 03-25-2021 08:18-0500 SaO2% (BldA) [Mass fraction] 91 % Dr. Donna Will Work Phone: [facility] Work Phone: 03-25-2021 08:07-0500 Heart rate 64 /min Dr. Donna Will Work Phone: [facility] Work Phone: 03-25-2021 07:45-0500 Body temperature 98.7 [degF] Dr. Donna Will Work Phone: [facility] Work Phone: 03-25-2021 07:45-0500 Diastolic blood pressure 58 mm[Hg] Dr. Donna Will Work Phone: [facility] Work Phone: 03-25-2021 07:45-0500 Respiratory rate 16 /min Dr. Donna Will Work Phone: [facility] Work Phone: 03-25-2021 07:45-0500 Systolic blood pressure 121 mm[Hg] Dr. Donna Will Work Phone: [facility] Work Phone: 03-25-2021 04:41-0500 Body weight 99.[address] Donna Will Work Phone: [facility] Work Phone: 03-23-2021 00:57-0500 Body mass index (BMI) [Ratio] 30.2 kg/m2 Dr. Donna Will Work Phone: [facility] Work Phone: 03-14-2021 12:34-0500 SaO2% (BldA) [Mass fraction] 97 % Dr. Donna Will Work Phone: [facility] Work Phone: 03-14-2021 11:44-0500 Heart rate 72 /min Dr. Donna Will Work Phone: [facility] Work Phone: 03-14-2021 11:44-0500 Respiratory rate 18 /min Dr. Donna Will Work Phone: [facility] Work Phone: 03-14-2021 08:41-0500 Body temperature 96 [degF] Dr. Donna Will Work Phone: [facility] Work Phone: 03-14-2021 08:41-0500 Diastolic blood pressure 60 mm[Hg] Dr. Donna Will Work Phone: [facility] Work Phone: 03-14-2021 08:41-0500 Systolic blood pressure 141 mm[Hg] Dr. Donna Will Work Phone: [facility] Work Phone: 03-14-2021 08:39-0500 Body mass index (BMI) [Ratio] 30 kg/m2 Dr. Donna Will Work Phone: [facility] Work Phone: 03-14-2021 08:39-0500 Body weight 97.[address] Donna Will Work Phone: [facility] Work Phone: Encounters Encounter Date Encounter Type Care Provider Facility Start: 08-13-2024 ambulatory Donna Will [place] Start: 08-03-2024 ambulatory Tobi Zapata Facility:[facility] Start: 07-27-2024 Dr. Tobi Zapata MD -[facility] Start: 07-25-2024 ambulatory Donna Will Facility :[facility] Start: 07-23-2024 End: 07-23-[address] Donna Will MD Work Phone: [facility] Work Phone: Start: 07-23-2024 End: 07-23-2024 Dr. Tobi Zapata MD -[facility] [place] Work Phone: Start: 07-23-2024 End: 07-23-2024 ambulatory Donna Will Facility:[facility] Start: 07-21-2024 End: 07-21-[address] Donna Will MD Work Phone: [facility] Work Phone: Start: 07-21-2024 End: 07-21-2024 Dr. Wilberto Villafuerte MD -Laboratory Spec[facility] Work Phone: Start: 07-20-2024 End: 07-21-[address] Donna Will MD Work Phone: [facility] Work Phone: Start: 07-20-2024 End: 07-20-2024 Dr. Tobi Zapata MD -[facility] Work Phone: Start: 07-14-2024 End: 07-14-[address] Donna Will MD Work Phone: [facility] Work Phone: Start: 07-14-2024 End: 07-14-2024 Dr. Wilberto Villafuerte MD -Home Health Lab Start: 07-12-2024 End: 07-12-[address] Donna Will MD Work Phone: [facility] Work Phone: Start: 07-12-2024 End: 07-12-2024 GERA Naik -Pulmonary Services/Neurology Work Phone: Start: 07-12-2024 End: 07-12-2024 ambulatory Donna Will Facility:[facility] Start: 07-08-2024 End: 07-08-2024 Emergency department patient visit Dr. Donna Will MD Work Phone: [facility] Work Phone: Start: 07-08-2024 End: 07-08-2024 Dr. Donna Will MD Work Phone: -Emergency Department Work Phone: Start: 07-05-2024 End: 07-05-[address] Donna Will MD Work Phone: [facility] Work Phone: Start: 07-05-2024 End: 07-05-2024 Dr. Wilberto Villafuerte MD -Home Health Lab Start: 07-05-2024 End: 07-05-2024 ambulatory Donna Will Facility:[facility] Start: 06-30-2024 End: 06-30-2024 Dr. Donna Will MD -[facility] Work Phone: Start: 06-30-2024 End: 06-30-2024 ambulatory Donna Will [place] Start: 06-29-2024 End: 06-29-2024 Dr. Wilberto Villafuerte MD -Medical Out Work Phone: Start: 06-29-2024 End: 06-29-[address] Donna Will MD Work Phone: [facility] Work Phone: Start: 06-28-2024 Dr. Wilberto astorga MD -Home Health Lab Start: 06-25-2024 Dr. Jordan Ortiz MD - [facility] Work Phone: Start: 06-24-2024 Dr. Jordan Ortiz MD - [facility] Work Phone: Start: 06-23-2024 Dr. Jordan Ortiz MD - [facility] Work Phone: Start: 06-23-2024 Dr. Anthony Singleton DO -[facility] Start: 06-22-2024 ambulatory Donna Will Facility :[facility] Start: 06-22-2024 Dr. Chicho Carson MD -[facility] Start: 06-22-2024 Dr. Jordan Ortiz [facility] -[facility] Work Phone: Start: 06-22-2024 Dr. Anthony Singleton DO -[facility] Start: 06-21-2024 ambulatory [facility] Facility :[facility] Start: 06-21-2024 Dr. Marco Dang MD -[facility] Start: 06-21-2024 Dr. Jordan Ortiz MD -[facility] Work Phone: Start: 06-20-2024 ambulatory Mable Pritchard Facility:[facility] Start: 06-20-2024 End: 06-25-2024 Evaluation and management of inpatient [facility] Facility:[facility] Start: 06-20-2024 End: 06-25-2024 Dr. Jordan Ortiz MD -[facility] Work Phone: Start: 05-27-2024 Dr. Tobi Zapata MD -[facility] Start: 05-18-2024 End: 05-18-2024 GERA Naik -[facility] Work Phone: Start: 05-18-2024 End: 05-18-2024 ambulatory [facility] Facility:[facility] Start: 04-27-2024 End: 04-27-2024 Martha Dodson BOX FEEDER- -[facility] Work Phone: Start: 04-27-2024 End: 04-27-2024 ambulatory [facility] Facility:[facility] Start: 04-22-2024 End: 04-22-2024 Khai Galeana [facility] Work Phone: Start: 04-22-2024 End: 04-22-2024 ambulatory [facility] Start: 04-08-2024 Dr. Huang Lazcano MD -[facility] Work Phone: Start: 04-07-2024 Khai Galeana DO [facility] Start: 04-07-2024 Dr. Huang Lazcano MD -[facility] Work Phone: Start: 04-07-2024 Dr. Anthony Singleton DO -[facility] Start: 04-06-2024 Khai Galeana DO -[facility] Start: 04-06-2024 Dr. Hunag Lazcano MD -[facility] Work Phone: Start: 04-06-2024 Dr. Anthony Singleton DO [facility] Start: 04-05-2024 ambulatory Khai Galeana Facility :[facility] Start: 04-05-2024 End: 04-08-2024 Evaluation and management of inpatient Donna Will Facility:[facility] Start: 04-05-2024 End: 04-08-2024 Dr. Huang Lazcano MD -Intensive Care Unit Work Phone: Start: 03-16-2024 End: 03-16-2024 Elizabeth HILARIO -[facility] Work Phone: Start: 03-16-2024 End: 03-16-2024 ambulatory Elizabeth HILARIO Facility:[facility] Start: 03-05-2024 End: 03-05-2024 BOX FEEDER Gris Naik -[facility] Work Phone: Start: 03-05-2024 End: 03-05-2024 ambulatory Gris Naik Facility:[facility] Start: 03-05-2024 End: 03-05-2024 ambulatory Gris Naik Facility:[facility] Start: 03-03-2024 End: 03-03-2024 Dr. Donna Will MD -[facility] Work Phone: Start: 03-03-2024 End: 03-03-2024 ambulatory Donna Will Facility:[facility] Start: 02-27-2024 End: 02-27-2024 ambulatory More Pulido NP Facility:[facility] Start: 01-27-2024 End: 01-27-2024 ambulatory Donna Will Facility:[facility] Start: 12-03-2023 End: 12-03-2023 ambulatory Donna Suman Facility:[facility] Start: 11-17-2023 End: 11-17-2023 ambulatory Donna Suman Facility:[facility] Start: 11-15-2023 End: 11-15-2023 ambulatory Donna Suman Facility:[facility] Start: 11-14-2023 ambulatory Huang Lazcano Fac ility:[facility] Start: 11-14-2023 End: 11-24-2023 Evaluation and management of inpatient Donnaglo Will Facility:[facility] Start: 11-09-2023 ambulatory Donna Suman Facility :[facility] Start: 11-09-2023 End: 11-11-2023 Evaluation and management of inpatient [facility] Facility:[facility] Start: 10-31-2023 ambulatory Elizabeth HILARIO Facility:[facility] Start: 10-30-2023 End: 10-31-2023 ambulatory [facility] Facility:[facility] Start: 09-29-2023 End: 09-29-2023 ambulatory [facility] Facility:[facility] Start: 09-24-2023 End: 09-24-2023 ambulatory [facility] Facility:[facility] Start: 09-19-2023 End: 09-19-2023 ambulatory [facility] Start: 09-15-2023 End: 09-15-2023 ambulatory [facility] Start: 09-09-2023 ambulatory Donna Suman Facility :[facility] Start: 09-04-2023 End: 09-04-2023 ambulatory Donna Suman Facility:[facility] Start: 09-04-2023 End: 09-04-2023 ambulatory Donna Suman Facility:[facility] Start: 09-04-2023 End: 09-04-2023 ambulatory Donna Suman Facility:[facility] Start: 06-05-2023 Dr. Donna Garcia hner Work Phone: [facility] Work Phone: Start: 06-05-2023 Dr. Donna Garcia hner Work Phone: [facility] Start: 06-05-2023 End: 06-05-[address] Donna Will Work Phone: [facility] Work Phone: Start: 06-05-2023 End: 06-05-2023 Dr. Donna Will Work Phone: [facility] Work Phone: Start: 05-28-2023 End: 05-28-2023 Dr. Donna Will Work Phone: [facility] Work Phone: Start: 05-12-2023 End: 05-12-[address] Donna Will Work Phone: [facility] Work Phone: Start: 05-12-2023 End: 05-12-2023 Dr. Donna Will Work Phone: [facility]-Laboratory Work Phone: Start: 05-09-2023 Dr. Donna de souza Work Phone: [facility] Start: 05-07-2023 End: 05-07-2023 Dr. Donna Will Work Phone: [facility] Work Phone: Start: 05-07-2023 End: 05-07-[address] Donna Will Work Phone: [facility] Work Phone: Start: 05-07-2023 End: 05-07-2023 Dr. Donna Will Work Phone: [facility]-Laboratory Work Phone: Start: 04-25-2023 End: 04-25-[address] Donna Will Work Phone: [facility] Work Phone: Start: 04-25-2023 End: 04-25-2023 Dr. Donna Will Work Phone: [facility]-Laboratory Work Phone: Start: 04-03-2023 End: 04-24-[address] Donna Will Work Phone: [facility] Work Phone: Start: 04-03-2023 End: 04-24-2023 Dr. Donna Will Work Phone: [facility]-Home Health Lab Start: 03-27-2023 End: 03-27-2023 Dr. Donna Will Work Phone: [facility] Work Phone: Start: 03-21-2023 Dr. Donna Garcia hner Work Phone: [facility] Work Phone: Start: 03-21-2023 [facility] Start: 03-21-2023 Patient encounter procedure [facility] Start: 03-20-2023 Dr. Donna Garcia hner Work Phone: [facility] Work Phone: Start: 03-20-2023 Dr. Donna Garcia hner Work Phone: [facility] Start: 03-19-2023 Dr. Donna Garcia hner Work Phone: [facility] Start: 03-19-2023 Dr. Donna Gracia hner Work Phone: [facility] Work Phone: Start: 03-18-2023 Dr. Donna Garcia hner Work Phone: [facility] Work Phone: Start: 03-18-2023 Dr. Donna Garcia hner Work Phone: [facility] Start: 03-18-2023 Dr. Donna Garcia hner Work Phone: [facility] Start: 03-17-2023 Dr. Donna Garcia hner Work Phone: [facility] Start: 03-17-2023 Dr. Donna Garcia hner Work Phone: [facility] Start: 03-17-2023 Dr. Donna Garcia hner Work Phone: [facility] Work Phone: Start: 03-17-2023 Dr. Donna Garcia hner Work Phone: [facility] Start: 03-16-2023 Evaluation and management of inpatient Dr. Donna Will Work Phone: [facility] Work Phone: Start: 03-16-2023 End: 03-21-2023 Dr. Donna Will Work Phone: [facility]-Intensive Care Unit Work Phone: Start: 03-06-2023 Dr. Donna Garcia hner Work Phone: [facility] Work Phone: Start: 03-06-2023 End: 03-06-2023 Dr. Donna Will Work Phone: [facility] Work Phone: Start: 03-05-2023 End: 03-05-2023 Dr. Donna Will Work Phone: [facility] Work Phone: Start: 03-04-2023 Dr. Donna Garcia hner Work Phone: [facility] Work Phone: Start: 03-03-2023 End: 03-06-2023 Evaluation and management of inpatient Dr. Donna Will Work Phone: [facility] Work Phone: Start: 03-03-2023 End: 03-06-2023 Dr. Donna Will Work Phone: [facility]-Progressive Care Unit Work Phone: Start: 03-02-2023 Dr. Donna Garcia hner Work Phone: [facility] Work Phone: Start: 03-01-2023 Dr. Donna Garcia hner Work Phone: [facility] Work Phone: Start: 02-28-2023 Dr. Donna Garcia hner Work Phone: [facility] Work Phone: Start: 02-28-2023 Evaluation and management of inpatient [facility] Start: 02-28-[address] Paula Will Work Phone: [facility] Work Phone: Start: 02-06-[address] Donna Will Work Phone: [facility] Start: 02-06-2023 Dr. Donna Garcia hner Work Phone: [facility] Start: 01-30-[address] Donna Will Work Phone: [facility] Start: 01-28-2023 End: 01-28-[address] [facility] Work Phone: Start: 01-28-2023 End: 01-28-2023 Dr. [facility] Work Phone: Start: 01-25-2023 End: 01-25-[address] Donna Will Work Phone: [facility] Work Phone: Start: 01-25-2023 End: 01-25-[address] Donna Will Work Phone: [facility] Work Phone: Start: 01-25-2023 End: 01-25-2023 Dr. Donna Will Work Phone: [facility] Work Phone: Start: 01-21-2023 End: 01-21-[address] Donna Will Work Phone: [facility] Work Phone: Start: 01-21-2023 End: 01-21-2023 Dr. Donna Will Work Phone: [facility] Work Phone: Start: 11-26-2022 End: 11-26-[address] Donna Will Work Phone: [facility] Work Phone: Start: 11-26-2022 End: 11-26-2022 Dr. Donna Will Work Phone: [facility] Work Phone: Start: 11-21-2022 End: 11-21-[address] Donna Will Work Phone: [facility] [place] Work Phone: Start: 11-21-2022 End: 11-21-2022 Dr. Donna Will Work Phone: [facility] [place] Work Phone: Start: 11-17-2022 Non-patient / Non-visit BOX FEEDER-C DANNIELLE PIÑA Work Phone: [facility] Work Phone: Start: 11-17-2022 Dr. Donna Garcia hner Work Phone: [facility] Work Phone: Start: 11-16-2022 Non-patient / Non-visit BOX FEEDER-C DANNIELLE PIÑA Work Phone: [facility] Work Phone: Start: 11-16-2022 Dr. Donna Garcia hner Work Phone: [facility] Work Phone: Start: 11-15-2022 End: 11-17-2022 Evaluation and management of inpatient BOX FEEDER-C DANNIELLE PIÑA Work Phone: [facility] Work Phone: Start: 11-15-2022 Non-patient / Non-visit BOX FEEDER-C DANNIELLE PIÑA Work Phone: [facility] Work Phone: Start: 11-15-2022 End: 11-17-2022 Dr. Donna Will Work Phone: [facility] Work Phone: Start: 11-08-2022 Registered Recurring BOX FEEDER-C SONY Purcell PIÑA Work Phone: [facility] Start: 10-29-2022 End: 10-29-2022 Patient encounter procedure BOX FEEDER-C DANNIELLE PIÑA Work Phone: [facility] Work Phone: Start: 09-30-2022 End: 09-30-2022 Patient encounter procedure BOX FEEDER-C DANNIELLE PIÑA Work Phone: [facility] Work Phone: Start: 09-13-2022 End: 09-13-2022 Patient encounter procedure BOX FEEDER-C DANNIELLE PIÑA Work Phone: [facility] Work Phone: Start: 09-04-2022 End: 09-04-2022 Patient encounter procedure BOX FEEDER-C DANNIELLE PIÑA Work Phone: [facility] Work Phone: Start: 08-29-2022 End: 08-29-2022 Emergency department patient visit BOX FEEDER-C DANNIELLE PIÑA Work Phone: [facility] Work Phone: Start: 08-29-2022 End: 08-29-2022 Patient encounter procedure BOX FEEDER-C DANNIELLE PIÑA Work Phone: [facility]Labor[facility] Work Phone: Start: 08-19-2022 End: 08-19-2022 Patient encounter procedure BOX FEEDER-C DANNIELLE PIÑA Work Phone: [facility] Work Phone: Start: 08-14-2022 End: 08-14-2022 Patient encounter procedure BOX FEEDER-C DANNIELLE PIÑA Work Phone: [facility] [place] Work Phone: Start: 08-12-2022 End: 08-12-2022 Patient encounter procedure BOX FEEDER-C DANNIELLE PIÑA Work Phone: [facility] Work Phone: Start: 08-08-2022 End: 08-08-2022 Patient encounter procedure BOX FEEDER-C DANNIELLE PIÑA Work Phone: [facility] Work Phone: Start: 08-08-2022 Registered Recurring BOX FEEDER-C WAND A PIÑA Work Phone: [facility] Start: 07-23-2022 End: 07-23-2022 Patient encounter procedure BOX FEEDER-C DANNIELLE PIÑA Work Phone: [facility] Work Phone: Start: 07-09-2022 End: 07-09-2022 Patient encounter procedure BOX FEEDER-C DANNIELLE PIÑA Work Phone: [facility] Work Phone: Start: 06-19-2022 End: 06-19-2022 ambulatory BOX FEEDER-C DANNIELLE PIÑA Work Phone: [facility] Work Phone: Start: 06-19-2022 End: 06-19-2022 Patient encounter procedure BOX FEEDER-C DANNIELLE PIÑA Work Phone: [facility] Start: 06-05-2022 End: 06-05-2022 ambulatory BOX FEEDER-C DANNIELLE PIÑA Work Phone: [facility] Work Phone: Start: 06-05-2022 End: 06-05-2022 Patient encounter procedure BOX FEEDER-C DANNIELLE PIÑA Work Phone: [facility] Start: 05-29-2022 End: 05-29-2022 Patient encounter procedure BOX FEEDER-C DANNIELLE PIÑA [facility] Start: 05-16-2022 Non-patient / Non-visit BOX FEEDER-C DANNIELLE PIÑA Work Phone: [facility] Start: 05-15-2022 End: 05-15-2022 ambulatory BOX FEEDER-C DANNIELLE PIÑA Work Phone: [facility] Work Phone: Start: 05-15-2022 End: 05-15-2022 Patient encounter procedure BOX FEEDER-C DANNIELLE PIÑA [facility] Start: 05-14-2022 Non-patient / Non-visit BOX FEEDER-C DANNIELLE PIÑA Work Phone: [facility] Start: 05-13-2022 Registered Recurring BOX FEEDER-C WAND A PIÑA Work Phone: [facility] Start: 05-13-2022 End: 05-13-2022 ambulatory BOX FEEDER-C DANNIELLE PIÑA Work Phone: [facility] Work Phone: Start: 05-13-2022 End: 05-13-2022 Patient encounter procedure BOX FEEDER-C DANNIELLE PIÑA [facility] Start: 04-29-2022 End: 04-29-2022 Patient encounter procedure BOX FEEDER-C DANNIELLE PIÑA Work Phone: [facility] Start: 03-22-2022 End: 03-22-2022 ambulatory BOX FEEDER-C DANNIELLE PIÑA Work Phone: [facility] Work Phone: Start: 03-22-2022 End: 03-22-2022 Patient encounter procedure BOX FEEDER-C DANNIELLE PIÑA Work Phone: [facility] Start: 03-22-2022 End: 03-22-2022 BOX FEEDER-C DANNIELLE PIÑA Work Phone: [facility] Start: 03-09-2022 End: 03-09-2022 ambulatory BOX FEEDER-C DANNIELLE PIÑA Work Phone: [facility] Work Phone: Start: 03-09-2022 End: 03-09-2022 Patient encounter procedure BOX FEEDER-C DANNIELLE PIÑA Work Phone: [facility]Labor[facility], Specimen Start: 03-09-2022 End: 03-09-2022 BOX FEEDER-C DANNIELLE PIÑA [facility] Start: 02-27-2022 End: 02-27-2022 Patient encounter procedure BOX FEEDER-C DANNIELLE PÑIA [facility] Start: 02-27-2022 End: 02-27-2022 BOX FEEDER-C DANNIELLE PIÑA [facility] Start: 02-16-2022 Non-patient / Non-visit BOX FEEDER-C DANNIELLE PIÑA Work Phone: [facility] Start: 02-16-2022 BOX FEEDER-C DANNIELLE SIM MONS Work Phone: [facility] Start: 02-16-2022 Non-patient / Non-visit BOX FEEDER-C DANNIELLE PIÑA Work Phone: [facility] Start: 02-16-2022 BOX FEEDER-C DANNIELLE SIM MONS Work Phone: [facility] Start: 02-15-2022 Non-patient / Non-visit BOX FEEDER-C DANNIELLE PIÑA Work Phone: [facility] Start: 02-15-2022 BOX FEEDER-C DANNIELLE SIM MONS Work Phone: [facility] Start: 02-15-2022 Non-patient / Non-visit BOX FEEDER-C DANNIELLE PIÑA Work Phone: [facility] Start: 02-15-2022 BOX FEEDER-C DANNIELLE SIM MONS Work Phone: [facility] Start: 02-14-2022 Non-patient / Non-visit BOX FEEDER-C DANNIELLE PIÑA Work Phone: [facility] Start: 02-14-2022 End: 02-16-2022 Evaluation and management of inpatient BOX FEEDER-C DANNIELLE PIÑA [facility] Start: 02-14-2022 End: 02-16-2022 BOX FEEDER-C DANNIELLE PIÑA [facility] Start: 02-06-2022 End: 02-06-2022 ambulatory BOX FEEDER-C DANNIELLE PIÑA Work Phone: [facility] Work Phone: Start: 02-06-2022 End: 02-06-2022 Patient encounter procedure BOX FEEDER-C DANNIELLE PIÑA Work Phone: [facility], Specimen Start: 02-06-2022 End: 02-06-2022 BOX FEEDER-C DANNIELLE PIÑA Work Phone: [facility], Specimen Start: 02-05-2022 Registered Recurring BOX FEEDER-C EDWARDD A PIÑA Work Phone: [facility] Start: 02-05-2022 End: 02-05-2022 Patient encounter procedure BOX FEEDER-C DANNIELLE PIÑA Work Phone: [facility] Start: 02-05-2022 End: 02-05-2022 BOX FEEDER-C DANNIELLE PIÑA Work Phone: [facility] Start: 01-15-2022 End: 01-15-[address] Donna Will Work Phone: [facility] Work Phone: Start: 01-15-2022 End: 01-15-[address] Donna Will Work Phone: [facility], Specimen Start: 01-15-2022 End: 01-15-2022 BOX FEEDER-C DANNIELLE PIÑA Work Phone: [facility], Specimen Start: 01-14-[address] Donna Will Work Phone: [facility] Start: 01-08-2022 End: 01-08-[address] Donna Will Work Phone: [facility] Start: 01-08-2022 End: 01-08-2022 BOX FEEDER-C DANNIELLE PIÑA Work Phone: [facility] Start: 12-26-[address] Donna Will Work Phone: [facility] Start: 12-26-2021 End: 12-26-[address] Donna Will Work Phone: [facility] Start: 12-26-2021 End: 12-26-2021 BOX FEEDER-C DANNIELLE PIÑA Work Phone: [facility] Start: 12-21-2021 End: 12-21-[address] Donna Will Work Phone: [facility] Work Phone: Start: 12-21-2021 End: 12-21-[address] Donna Will Work Phone: [facility] Start: 12-21-2021 End: 12-21-2021 BOX FEEDER-C DANNIELLE PIÑA Work Phone: [facility] Start: 12-11-2021 Non-patient / Non-visit Dr. Donna Will Work Phone: [facility] Start: 12-11-2021 BOX FEEDER-C DANNIELLE SIM MONS Work Phone: [facility] Start: 12-10-2021 Non-patient / Non-visit Dr. Donna Will Work Phone: [facility] Start: 12-10-2021 BOX FEEDER-C DANNIELLE SIM MONS Work Phone: [facility] Start: 12-09-2021 Non-patient / Non-visit Dr. Donna Will Work Phone: [facility] Start: 12-09-2021 BOX FEEDER-C DANNIELLE SIM MONS Work Phone: [facility] Start: 12-09-2021 Non-patient / Non-visit Dr. Donna Will Work Phone: [facility] Start: 12-09-2021 BOX FEEDER-C DANNIELLE SIM MONS Work Phone: [facility] Start: 12-08-2021 Non-patient / Non-visit Dr. Donna Will Work Phone: [facility] Start: 12-08-2021 End: 12-11-2021 Evaluation and management of inpatient Dr. Donna Will Work Phone: [facility] 3 Start: 12-08-2021 End: 12-11-2021 BOX FEEDER-C DANNIELLE PIÑA Work Phone: [facility] 3 Start: 11-16-2021 End: 11-16-[address] Donna Will Work Phone: [facility]Labor[facility], Specimen Start: 10-26-2021 Non-patient / Non-visit Dr. Donna Will Work Phone: [facility] Start: 10-25-2021 Non-patient / Non-visit Dr. Donna Will Work Phone: [facility] Start: 10-25-2021 Non-patient / Non-visit Dr. Donna Will Work Phone: [facility] Start: 10-24-2021 Non-patient / Non-visit Dr. Donna Will Work Phone: [facility] Start: 10-24-2021 Non-patient / Non-visit Dr. Donna Will Work Phone: [facility] Start: 10-23-2021 Non-patient / Non-visit Dr. Donna Will Work Phone: [facility] Start: 10-23-2021 End: 10-26-2021 Evaluation and management of inpatient [facility]. Donna Will [facility] Start: 10-23-2021 End: 10-23-[address] Donna Will [facility] Start: 10-16-2021 End: 10-16-[address] Donna Will Work Phone: [facility] Start: 10-09-2021 End: 10-09-[address] Donna Will Work Phone: [facility] Start: 10-02-2021 Non-patient / Non-visit Dr. Donna Will Work Phone: [facility] Start: 10-01-2021 End: 10-02-2021 Evaluation and management of inpatient Dr. Donna Will [facility] Start: 09-04-2021 Non-patient / Non-visit Dr. Donna Will Work Phone: [facility] Start: 09-04-2021 End: 09-04-[address] Donna Will Work Phone: [facility] Start: 09-03-2021 End: 09-03-[address] Donna Will Work Phone: [facility] Start: 08-07-2021 Non-patient / Non-visit Dr. Donna Will Work Phone: [facility] Start: 08-06-2021 End: 08-07-2021 Evaluation and management of inpatient Dr. Donna Will [facility] Start: 08-03-2021 End: 08-03-[address] Donna Will Work Phone: [facility], Specimen Start: 08-01-2021 End: 08-01-[address] Donna Will Work Phone: [facility], Specimen Start: 07-26-2021 End: 07-26-[address] Donna Will Work Phone: [facility] Start: 07-24-2021 End: 07-24-[address] Donna Will [facility] Start: 06-25-2021 End: 06-25-[address] Donna Will Work Phone: [facility] Start: 06-19-2021 Non-patient / Non-visit Dr. Donna Will Work Phone: [facility] Start: 06-19-2021 Dr. Donna de souza Work Phone: [facility] Start: 06-15-2021 End: 06-15-[address] Donna Will [facility] Start: 06-15-2021 End: 06-15-2021 Dr. Donna Will [facility] Start: 05-29-2021 End: 05-29-[address] Donna Will Work Phone: [facility] Start: 05-29-2021 End: 05-29-2021 Dr. Donna Will Work Phone: [facility] Start: 05-29-2021 End: 05-29-[address] Donna Will Work Phone: [facility] Start: 05-29-2021 End: 05-29-2021 Dr. Donna Will Work Phone: [facility] Start: 05-04-2021 End: 05-18-2021 Evaluation and management of inpatient Dr. Donna Will [facility] Start: 05-04-2021 End: 05-18-2021 Dr. Donna Will [facility] Start: 05-04-2021 Non-patient / Non-visit Dr. Donna Will Work Phone: [facility] Start: 05-04-2021 Dr. Donna Garcia hner Work Phone: [facility] Start: 05-04-2021 Non-patient / Non-visit Dr. Donna Will Work Phone: [facility] Start: 05-04-2021 Dr. Donna Garcia hner Work Phone: [facility] Start: 05-03-2021 Non-patient / Non-visit Dr. Donna Will Work Phone: [facility] Start: 05-03-2021 Dr. Donna Garcia hner Work Phone: [facility] Start: 05-02-2021 Non-patient / Non-visit Dr. Donna Will Work Phone: [facility] Start: 05-02-2021 Dr. Donna [facility] hner [facility] Start: 05-02-2021 Non-patient / Non-visit Dr. Donna Will Work Phone: [facility] Start: 05-02-2021 Dr. Donna Garcia hner Work Phone: [facility] Start: 05-02-2021 Non-patient / Non-visit Dr. Donna Will Work Phone: [facility] Start: 05-02-2021 Dr. Donna Garcia hner Work Phone: [facility] Start: 05-01-2021 Non-patient / Non-visit Dr. Donna Will Work Phone: [facility] Start: 05-01-2021 Dr. Donna Garcia hner Work Phone: [facility] Start: 05-01-2021 Non-patient / [facility] Start: 05-01-2021 Dr. Donna Garcia hner Work Phone: [facility] Start: 05-01-2021 Non-patient / Non-visit Dr. Donna Will Work Phone: [facility] Start: 05-01-2021 Dr. Donna Garcia hner Work Phone: [facility] Start: 05-01-2021 Non-patient / Non-visit Dr. Donna Will Work Phone: [facility] Start: 05-01-2021 Dr. Donna Garcia hner Work Phone: [facility] Start: 04-30-2021 Non-patient / Non-visit Dr. Donna Will Work Phone: [facility] Start: 04-30-2021 Dr. Donna Garcia hner Work Phone: [facility] Start: 04-29-2021 Non-patient / Non-visit Dr. Donna Will Work Phone: [facility] Start: 04-29-2021 End: 05-04-2021 Evaluation and management of inpatient Dr. Donna Will [facility] Start: 04-29-2021 End: 05-04-2021 Dr. Donna Will [facility] Start: 04-26-2021 End: 04-29-2021 Evaluation and management of inpatient Dr. Donna Will [facility] Start: 04-26-2021 Non-patient / Non-visit Dr. Donna Will Work Phone: [facility] Start: 04-26-2021 Non-patient / Non-visit Dr. Donna Will Work Phone: [facility] Start: 04-26-2021 End: 04-30-2021 Dr. Donna Will [facility] Start: 04-25-2021 Non-patient / Non-visit Dr. Donna Will Work Phone: [facility] Start: 04-25-2021 Dr. Donna Garcia hner Work Phone: [facility] Start: 04-25-2021 Non-patient / Non-visit Dr. Donna Will Work Phone: [facility] Start: 04-25-2021 Dr. Donna Garcia hner Work Phone: [facility] Start: 04-24-2021 Non-patient / Non-visit Dr. Donna Will Work Phone: [facility] Start: 04-24-2021 Dr. Donna Garcia hner Work Phone: [facility] Start: 04-24-2021 Non-patient / Non-visit Dr. Donna Will Work Phone: [facility] Start: 04-24-2021 Dr. Donna Garcia hner Work Phone: [facility] Start: 04-23-2021 Non-patient / Non-visit [facility] Start: 04-23-2021 Dr. Donna francor Work Phone: [facility] Start: 04-23-2021 Non-patient / Non-visit Dr. Donna Will Work Phone: [facility] Start: 04-23-2021 Dr. Donna Garcia hner Work Phone: [facility] Start: 04-22-2021 End: 04-26-2021 Evaluation and management of inpatient Dr. Donna Will [facility] Start: 04-22-2021 End: 04-26-2021 Dr. Donna Will Work Phone: [facility] 3 Start: 04-21-2021 Non-patient / Non-visit Dr. Donna Will Work Phone: [facility] Start: 04-21-2021 Dr. Donna Garcia hner Work Phone: [facility] Start: 04-19-2021 End: 04-19-[address] Donna Will Work Phone: [facility] Start: 04-19-2021 End: 04-19-2021 Dr. Donna Will Work Phone: [facility] Start: 04-11-2021 Non-patient / Non-visit Dr. Donna Will Work Phone: [facility] Start: 04-11-2021 Dr. Donna Garcia hner Work Phone: [facility] Start: 04-10-2021 Non-patient / Non-visit Dr. Donna Will Work Phone: [facility] Start: 04-10-2021 Dr. Donna Garcia hner Work Phone: [facility] Start: 04-09-2021 Non-patient / Non-visit Dr. Donna Will Work Phone: [facility] Start: 04-09-2021 Dr. Donna Garcia hner Work Phone: [facility] Start: 04-09-2021 Non-patient / Non-visit Dr. Donna Will Work Phone: [facility] Start: 04-09-2021 Dr. Donna Garcia hner Work Phone: [facility] Start: 04-08-2021 End: 04-11-2021 Evaluation and management of inpatient Dr. Donna Will [facility] Start: 04-08-2021 End: 04-11-2021 Dr. Donna Will [facility] Start: 04-05-2021 End: 04-05-2021 Dr. Donna Will Work Phone: [facility] Start: 04-04-2021 End: 04-04-2021 Dr. Donna Will Work Phone: [facility] Start: 04-04-2021 Dr. Donna Garcia hner Work Phone: [facility] Start: 03-28-2021 End: 03-28-2021 Dr. Donna Will Work Phone: [facility] Start: 03-25-2021 Dr. Donna Garcia hner Work Phone: [facility] Start: 03-23-2021 Dr. Donna Garcia hner Work Phone: [facility] Start: 03-22-2021 End: 03-25-2021 Dr. Donna Will Work Phone: [facility] Start: 03-14-2021 End: 03-14-2021 Dr. Donna Will Work Phone: [facility]Emer[facility] Department Start: 02-05-2021 Dr. Donna Garcia hner Work Phone: [facility], [facility] Procedures Date Procedure Procedure Detail Performing Clinician Start: 07-23-2024 Measurement of occult blood in stool specimen using immunoassay Dr. Donna Will MD Work Phone: Start: 07-21-2024 Mean corpuscular hemoglobin concentration determination Dr. Donna Will MD Work Phone: Start: 07-21-2024 Platelet mean volume determination Dr. Andre Will MD Work Phone: Start: 07-20-[address] Donna Will MD Work Phone: Start: 07-20-2024 Total iron binding capacity measurement Dr. Donna Will MD Work Phone: Start: 07-12-2024 Mean corpuscular hemoglobin concentration determination Dr. Donna Will MD Work Phone: Start: 07-12-2024 Platelet mean volume determination Dr. Andre Will MD Work Phone: Start: 07-08-2024 Urine microscopy: red cells Dr. Donna vasques MD Work Phone: Start: 07-08-2024 Urnls dip stick/tablet reagent auto microscopy Dr. Donna Will MD Work Phone: Start: 07-08-2024 X-ray of chest, PA and lateral views Dr. Donna Will MD Work Phone: Start: 07-08-[address] Donna Will MD Work Phone: Start: 07-08-2024 Blood count smear mcrscp w/mnl difrntl wbc count Dr. Donna Will MD Work Phone: Start: 07-08-2024 Calculation of international normalized ratio Dr. Donna Will MD Work Phone: Start: 07-08-2024 Mean corpuscular hemoglobin concentration determination Dr. Donna Will MD Work Phone: Start: 07-08-2024 Nucleated red blood cell count procedure Dr. Donna Will MD Work Phone: Start: 07-08-2024 Platelet mean volume determination Dr. Andre Will MD Work Phone: Start: 07-05-2024 Mean corpuscular hemoglobin concentration determination Dr. Donna Will MD Work Phone: Start: 07-05-2024 Platelet mean volume determination Dr. Andre Will MD Work Phone: Start: 06-28-2024 Mean corpuscular hemoglobin concentration determination Dr. Donna Will MD Work Phone: Start: 06-28-2024 Platelet mean volume determination Dr. Andre Will MD Work Phone: Start: 06-25-2024 Blood count smear mcrscp w/mnl difrntl wbc count Dr. Donna Will MD Work Phone: Start: 06-25-[address] Donna Will MD Work Phone: Start: 06-25-2024 Mean corpuscular hemoglobin concentration determination Dr. Donna Will MD Work Phone: Start: 06-25-2024 Nucleated red blood cell count procedure Dr. Donna Will MD Work Phone: Start: 06-25-2024 Platelet mean volume determination Dr. Andre Will MD Work Phone: Start: 06-23-[address] Donna Will MD Work Phone: Start: 06-23-2024 Blood disorder - initial assessment Dr. Donna Will MD Work Phone: Start: 06-22-[address] Donna Will MD Work Phone: Start: 06-22-2024 Serum inorganic phosphate measurement Dr. Donna Will MD Work Phone: Start: 06-21-[address] Donna Will MD Work Phone: Start: 06-21-[address] Donna Will MD Work Phone: Start: 06-21-2024 Plain chest X-ray Dr. Donna Will MD Work Phone: Start: 06-20-[address] Donna Will MD Work Phone: Start: 06-20-2024 Urine microscopy: red cells Dr. Donna vasques MD Work Phone: Start: 06-20-2024 Urnls dip stick/tablet reagent auto microscopy Dr. Donna Will MD Work Phone: Start: 06-20-2024 Plain chest X-ray Dr. Donna Will MD Work Phone: Start: 06-20-2024 Calculation of international normalized ratio Dr. Donna Will MD Work Phone: Start: 06-20-2024 Carbon dioxide measurement, partial pressure Dr. Donna Will MD Work Phone: Start: 06-20-2024 Gases blood o2 saturation only direct yocasta Dr. Donna Will MD Work Phone: Start: 06-20-2024 Measurement of partial pressure of oxygen in blood Dr. Donna Will MD Work Phone: Start: 06-20-[address] Donna Will MD Work Phone: Start: 06-20-[address] Donna Will MD Work Phone: Start: 06-20-2024 Identification procedure for living organism Dr. Donna Will MD Work Phone: Start: 06-20-2024 Legionella pneumophila antigen assay Dr. Donna Will MD Work Phone: Start: 06-20-[address] Donna Will MD Work Phone: Start: 06-20-2024 End: 06-20-2024 Streptococcus pneumoniae antigen assay Dr. Donna Will MD Work Phone: Start: 06-20-[address] Donna Will MD Work Phone: Start: 06-20-2024 Dr. Donna Will MD Work Phone: Start: 04-27-2024 Blood count smear mcrscp w/mnl difrntl wbc count Dr. Donna Will MD Work Phone: Start: 04-27-[address] Donna Will MD Work Phone: Start: 04-27-[address] Donna Will MD Work Phone: Start: 04-27-2024 Mean corpuscular hemoglobin concentration determination Dr. Donna Will MD Work Phone: Start: 04-27-2024 Nucleated red blood cell count procedure Dr. Donna Will MD Work Phone: Start: 04-27-2024 Platelet mean volume determination Dr. Andre Will MD Work Phone: Start: 04-27-2024 Serum inorganic phosphate measurement Dr. Donna Will MD Work Phone: Start: 04-27-2024 Total iron binding capacity measurement Dr. Donna Will MD Work Phone: Start: 04-08-[address] Donna Will MD Work Phone: Start: 04-08-2024 Blood count smear mcrscp w/mnl difrntl wbc count Dr. Donna Will MD Work Phone: Start: 04-08-2024 BUN/Creatinine ratio Dr. Donna Will MD Work Phone: Start: 04-08-[address] Donna Will MD Work Phone: Start: 04-08-2024 Mean corpuscular hemoglobin concentration determination Dr. Donna Will MD Work Phone: Start: 04-08-2024 Measurement of renal function Dr. Donna Will MD Work Phone: Start: 04-08-2024 Nucleated red blood cell count procedure Dr. Donna Will MD Work Phone: Start: 04-08-2024 Platelet mean volume determination Dr. Andre Will MD Work Phone: Start: 04-06-[address] Donna mckeon MD Work Phone: Start: 04-06-[address] Donna Will MD Work Phone: Start: 04-06-[address] Donna Will MD Work Phone: Start: 04-06-2024 Plain chest X-ray Dr. Donna Will MD Work Phone: Start: 04-05-[address] Donna Will MD Work Phone: Start: 04-05-2024 Venous oxygen saturation measurement Dr. Donna Will MD Work Phone: Start: 04-05-2024 Urine microscopy: red cells Dr. Donna vasques MD Work Phone: Start: 04-05-2024 Urnls dip stick/tablet reagent auto microscopy Dr. Donna Will MD Work Phone: Start: 04-05-2024 CT of abdomen and pelvis without contrast Dr. Donna Will MD Work Phone: Start: 04-05-2024 X-ray of chest, PA and lateral views Dr. Donna Will MD Work Phone: Start: 04-05-2024 Albumin/Globulin ratio Dr. Donna delarosa MD Work Phone: Start: 04-05-[address] Donna Will MD Work Phone: Start: 04-05-2024 Calculation of international normalized ratio Dr. Donna Will MD Work Phone: Start: 04-05-[address] Donna vasques MD Work Phone: Start: 04-05-[address] Donna Will MD Work Phone: Start: 04-05-2024 Measurement of occult blood in stool specimen using immunoassay Dr. Donna Will MD Work Phone: Start: 04-05-[address] Donna Will MD Work Phone: Start: 04-05-2024 Dr. Donna Will MD Work Phone: Start: 03-05-[address] Donna Will MD Work Phone: Start: 03-05-[address] Donna Will MD Work Phone: Start: 03-05-2024 X-ray of chest, PA and lateral views Dr. Donna Will MD Work Phone: Start: 01-27-2024 Measurement of renal function Dr. Donna Will MD Work Phone: Start: 01-27-2024 Vitamin D, 25-hydroxy measurement Dr. Toyin Will MD Work Phone: Start: 06-05-2023 Dr. Donna Will Work Phone: Start: 05-28-2023 Endomysial antibody IgA level Dr. Donna Will MD Work Phone: Start: 05-28-2023 Gliadin antibody, IgA measurement Dr. Toyin Will MD Work Phone: Start: 05-28-2023 Gliadin antibody, IgG measurement Dr. Toyin Will MD Work Phone: Start: 05-28-[address] Donna mckeon MD Work Phone: Start: 05-28-2023 Measurement of immunoglobulin A in serum specimen Dr. Donna Will MD Work Phone: Start: 03-20-[address] Donna Will Work Phone: Start: 03-18-2023 Plain chest X-ray Dr. Donna Will Work Phone: Start: 03-18-[address] Donna vasques Work Phone: Start: 03-18-2023 Investigation of transfusion reaction Dr. Donna Will Work Phone: Start: 03-18-2023 Dr. Donna Will Work Phone: Start: 03-18-[address] Donna mckeon Work Phone: Start: 03-18-2023 Ultrasonic guidance for thoracentesis Dr. Donna Will Work Phone: Start: 03-16-2023 CT of chest without contrast Dr. Donna crawford Work Phone: Start: 03-16-2023 CT cervical spine without contrast Dr. Andre Will Work Phone: Start: 03-16-2023 CT of head without contrast Dr. Donna vasques Work Phone: Start: 03-16-2023 Plain chest X-ray Dr. Donna Will Work Phone: Start: 03-16-2023 Measurement of occult blood in stool specimen using immunoassay Dr. Donna Will Work Phone: Start: 03-16-[address] Donna Will Work Phone: Start: 03-16-2023 Dr. Donna Will Work Phone: Start: 03-03-2023 Plain chest X-ray Dr. Donna Will Work Phone: Start: 03-01-2023 Measurement of occult blood in stool specimen using immunoassay Dr. Donna Will Work Phone: Start: 02-28-2023 Plain chest X-ray Dr. Donna Will Work Phone: Start: 02-28-[address] Donna Will Work Phone: Start: 02-28-2023 SARS-CoV-2, Influenza & RSV (PCR) Dr. Toyin Will Work Phone: Start: 02-28-2023 Plain chest X-ray Dr. Donna Will Work Phone: Start: 01-30-2023 Measurement of occult blood in stool specimen using immunoassay Dr. Donna Will Work Phone: Start: 01-25-[address] Donna Will Work Phone: Start: 11-15-2022 Plain chest X-ray [employer] PIÑA Work Phone: Start: 07-29-2022 Measurement of occult blood in stool specimen using immunoassay [employer] Work Phone: Start: 07-09-2022 Computed tomography of abdomen and pelvis with contrast [employer] PIÑA Work Phone: Start: 06-05-2022 Videoswallow [employer] D[employer] PIÑA Work Phone: Start: 05-03-2022 Measurement of occult blood in stool specimen using immunoassay [employer]LE PIÑA Work Phone: Start: 03-22-2022 Videoswallow [employer] PIÑA Work Phone: Start: 02-15-2022 Plain chest X-ray [employer] PIÑA Work Phone: Start: 02-14-2022 CT angiography of chest with contrast [employer] PIÑA Work Phone: Start: 02-14-2022 Plain chest X-ray [employer] PIÑA Work Phone: Start: 02-14-2022 CT of head without contrast [employer] DANNIELLE S IMMONS Work Phone: Start: 12-10-[address] Donna mckeon Work Phone: Start: 12-08-2021 CT angiography of chest with contrast Dr. Donna Will Work Phone: Start: 12-08-2021 Plain chest X-ray Dr. Donna Will Work Phone: Start: 10-25-[address] Donna mckeon Work Phone: Start: 10-25-2021 Plain chest X-ray Dr. Donna Will Work Phone: Start: 10-23-2021 CT of chest without contrast Dr. Donna crawford Work Phone: Start: 10-23-2021 Plain chest X-ray Dr. Donna Will Work Phone: Start: 10-01-2021 Plain chest X-ray Dr. Donna Will Work Phone: Start: 10-01-2021 CT of head without contrast Dr. Donna vasques Work Phone: Start: 08-07-2021 End: 08-07-2021 Measurement of occult blood in stool specimen using immunoassay Dr. Donna Will Work Phone: Start: 08-06-2021 CT of chest without contrast Dr. Donna crawford Work Phone: Start: 08-06-2021 End: 08-06-2021 Legionella pneumophila antigen assay Dr. Donna Will Work Phone: Start: 08-06-2021 Respiratory Panel (PCR) Dr. Donna Weller er Work Phone: Start: 08-06-2021 Streptococcus pneumoniae Antigen (M Dr. Donna Will Work Phone: Start: 08-06-2021 Plain chest X-ray Dr. Donna Will Work Phone: Start: 05-29-2021 Plain chest X-ray Dr. Donna Will Work Phone: Start: 05-08-[address] Donna Will Work Phone: Start: 05-04-2021 End: 05-04-2021 Investigation of transfusion reaction Dr. Donna Will Work Phone: Start: 05-04-2021 End: 05-04-[address] Donna Will Work Phone: Start: 05-04-2021 End: 05-04-[address] Donna Will Work Phone: Start: 05-02-[address] Donna Will Work Phone: Start: 05-01-2021 Bacteria identified in Blood by Culture Dr. Donna Will Work Phone: Start: 05-01-2021 End: 05-01-2021 Legionella pneumophila antigen assay Dr. Donna Will Work Phone: Start: 05-01-2021 Measurement of occult blood in stool specimen using immunoassay Dr. Donna Will Work Phone: Start: 05-01-2021 Streptococcus pneumoniae Antigen (M Dr. Donna Will Work Phone: Start: 05-01-2021 Dr. Donna Will Work Phone: Start: 04-29-2021 MRI of brain without contrast Dr. Donna Will Work Phone: Start: 04-29-2021 CT angiography of chest with contrast Dr. Donna Will Work Phone: Start: 04-28-2021 Diagnostic radiography of abdomen Dr. Toyin Will Work Phone: Start: 04-28-2021 Bacteria identified in Blood by Culture Dr. Donna Will Work Phone: Start: 04-28-2021 Dr. Donna Will Work Phone: Start: 04-26-2021 End: 04-26-[address] Donna Will Work Phone: Start: 04-25-2021 Plain chest X-ray Dr. Donna Will Work Phone: Start: 04-25-2021 End: 04-25-[address] Paula Will Work Phone: Start: 04-22-2021 Bacteria identified in Blood by Culture Dr. Donna Will Work Phone: Start: 04-22-2021 Dr. Donna Will Work Phone: Start: 04-22-2021 Diagnostic radiography of abdomen, decubitus and erect Dr. Donna Will Work Phone: Start: 04-22-2021 CT angiography of chest with contrast Dr. Donna Will Work Phone: Start: 04-21-2021 Plain chest X-ray Dr. Donna Will Work Phone: Start: 04-21-[address] Donna Will Work Phone: Start: 04-09-2021 End: 04-09-2021 Investigation of transfusion reaction Dr. Donna Will Work Phone: Start: 04-09-[address] Donna Will Work Phone: Start: 04-08-2021 CT angiography of chest with contrast Dr. Donna Will Work Phone: Start: 04-08-2021 Bacteria identified in Blood by Culture Dr. Donna iWll Work Phone: Start: 04-08-2021 Dr. Donna Will Work Phone: Start: 04-08-2021 Plain chest X-ray Dr. Donna Will Work Phone: Start: 04-05-2021 Plain chest X-ray Dr. Donna Will Work Phone: Start: 03-23-2021 End: 03-23-2021 Investigation of transfusion reaction Dr. Donna Will Work Phone: Start: 03-23-2021 End: 03-23-2021 Legionella pneumophila antigen assay Dr. Donna Will Work Phone: Start: 03-23-2021 End: 03-23-[address] Donna Will Work Phone: Start: 03-23-2021 Dr. Donna Will Work Phone: Start: 03-23-2021 CT angiography of chest with contrast Dr. Donna Will Work Phone: Start: 03-23-2021 CT of head without contrast Dr. Donna vasques Work Phone: Start: 03-22-2021 Plain chest X-ray Dr. Donna Will Work Phone: Start: 03-22-2021 Dr. Donna Will Work Phone: Start: 03-14-2021 Dr. Donna Will Work Phone: Start: 03-14-2021 CT angiography of chest with contrast Dr. Donna Will Work Phone: Start: 03-14-2021 Plain chest X-ray Dr. Donna Will Work Phone: Start: 10-22-2013 History of placement of stent for coronary artery disease History of coronary artery stent placement Elizabeth HILARIO Start: 09-24-2013 History of placement of stent for coronary artery disease Dr. Donna Will Work Phone: Bacteria identified in Blood by Culture Dr. Donna Will Work Phone: Bacteria identified in Blood by Culture [employer] PIÑA Work Phone: Bacteria identified in Urine by Culture [employer] PIÑA Work Phone: H/O: surgery Dr. Donna pollock Work Phone: Investigation of tra nsfusion reaction Dr. Donna Will Work Phone: Investigation of tra nsfusion reaction [employer] PIÑA Work Phone: Legionella pneumophi la antigen assay Dr. Donna Will Work Phone: Legionella pneumophi la antigen assay [employer]LE PIÑA Work Phone: Measurement of occul t blood in stool specimen using immunoassay Dr. Donna Will Work Phone: Measurement of occul t blood in stool specimen using immunoassay [employer] D[employer]LE PIÑA Work Phone: Respiratory microbial culture Dr. Donna Will Work Phone: Respiratory microbial culture [employer] PIÑA Work Phone: Respiratory Panel (PCR) Dr. Donna Will Work Phone: Respiratory Panel (PCR) [employer] PIÑA Work Phone: SARS-CoV-2 & FLU Antigen (Rapid) Dr. Donna Will Work Phone: Streptococcus pneumoniae Antigen (M Dr. Donna Will Work Phone: Urine culture [employer] DANNIELLE SIM MONS Work Phone: Urine culture [employer] DAN[employer]LE SIM MONS Work Phone: [employer] DANNIELLE SIMM ONS Work Phone: [employer] DANNIELLE SIMM ONS Work Phone: [employer] DANNIELLE SIMM ONS Work Phone: [employer] DANNIELLE SIMM ONS Work Phone: [employer]ANNIELLE SIMM ONS Work Phone: [employer]AN[employer]ELLE SIMM ONS Work Phone: Plan of Treatment Date Care Activity Detail Author Start: 07-20-2024 [facility] Start: 07-20-2024 Patient referral [facility] Work Phone: Start: 07-08-2024 [facility] Start: 07-08-2024 Blood culture [facility] Start: 07-08-2024 End: 07-08-2024 [facility] Start: 07-01-2024 Measurement of respiratory function [facility] Start: 06-25-2024 Patient discharge [facility] Start: 06-24-2024 Referral to service [facility] Start: 06-22-2024 Consultation [facility] Start: 06-21-2024 Oxygen therapy [facility] Start: 06-21-2024 [facility] Start: 06-20-2024 Dual pressure spontaneous ventilation support [facility] Start: 06-20-2024 Application of intermittent pneumatic compression device [facility] Start: 06-20-2024 Following clinical pathway protocol [facility] Start: 06-20-2024 Continuous pulse oximetry [facility] Start: 06-20-2024 Assessment of risk of venous thromboembolism [facility] Start: 06-20-2024 Care regimes management [facility] Start: 06-20-2024 Catheterization of vein [facility] Start: 06-20-2024 Elevation of head of bed [facility] Start: 06-20-2024 Inhalation therapy procedure [facility] Start: 06-20-2024 Insertion of catheter into peripheral vein [facility] Start: 06-20-2024 Measuring intake and output [facility] Start: 06-20-2024 Notification of physician [facility] Start: 06-20-2024 Patient education [facility] Start: 06-20-2024 Providing care according to standard [facility] Start: 06-20-2024 Referral to occupational therapist [facility] Start: 06-20-2024 Referral to service [facility] Start: 06-20-2024 Tobacco use cessation education [facility] Start: 06-20-2024 Vital signs measurements [facility] Start: 06-20-2024 End: 06-20-2024 [facility] Start: 06-20-2024 Admission procedure [facility] Start: 04-08-2024 Patient discharge [facility] Start: 04-07-2024 Oxygen therapy [facility] Start: 04-06-2024 End: 04-07-2024 [facility] Start: 04-06-2024 Referral to gastroenterology service [facility] Start: 04-06-2024 Administration of blood product [facility] Start: 04-06-2024 Care planning and problem solving actions [facility] Start: 04-06-2024 Inhalation therapy procedure [facility] Start: 04-05-2024 Following clinical pathway protocol [facility] Start: 04-05-2024 Transfusion of blood product [facility] Start: 04-05-2024 Application of intermittent pneumatic compression device [facility] Start: 04-05-2024 Cardiac monitoring [facility] Start: 04-05-2024 Care regimes management [facility] Start: 04-05-2024 Catheterization of vein [facility] Start: 04-05-2024 Consultation [facility] Start: 04-05-2024 Continuous pulse oximetry [facility] Start: 04-05-2024 Notification of physician [facility] Start: 04-05-2024 Vital signs measurements [facility] Start: 04-05-2024 End: 04-05-2024 [facility] Start: 04-05-2024 Admission procedure [facility] Start: 06-05-2023 Diagnostic bone marrow biopsies & aspirations [facility] Start: 06-05-2023 Procedure [facility] Start: 06-05-2023 Following clinical pathway protocol [facility] Start: 06-05-2023 Catheterization of vein [facility] Start: 06-05-2023 Oxygen therapy [facility] Start: 06-05-2023 Patient discharge [facility] Start: 06-05-2023 Vital signs measurements [facility] Start: 05-09-2023 Administration of blood product [facility] Start: 05-09-2023 [facility] Start: 03-21-2023 Referral to service [facility] Start: 03-21-2023 Patient discharge [facility] Start: 03-19-2023 Care planning and problem solving actions [facility] Start: 03-17-2023 [facility] Start: 03-17-2023 [facility] Start: 03-17-2023 Vital signs measurements [facility] Start: 03-17-2023 Methicillin resistant Staphylococcus aureus screening test [facility] Start: 03-17-2023 End: 03-18-2023 [facility] Start: 03-16-2023 [facility] Start: 03-16-2023 Speech therapy assessment [facility] Start: 03-16-2023 Following clinical pathway protocol [facility] Start: 03-16-2023 Lab findings surveillance [facility] Start: 03-16-2023 [facility] Start: 03-16-2023 Application of intermittent pneumatic compression device [facility] Start: 03-16-2023 Hospital admission, emergency, from emergency room, medical nature [facility] Start: 03-16-2023 Following clinical pathway protocol [facility] Start: 03-16-2023 Assessment of risk of venous thromboembolism [facility] Start: 03-16-2023 Care regimes management [facility] Start: 03-16-2023 Catheterization of vein [facility] Start: 03-16-2023 Consultation [facility] Start: 03-16-2023 Continuous pulse oximetry [facility] Start: 03-16-2023 Documentation procedure [facility] Start: 03-16-2023 Incentive spirometry [facility] Start: 03-16-2023 Inhalation therapy procedure [facility] Start: 03-16-2023 Insertion of catheter into peripheral vein [facility] Start: 03-16-2023 Measuring intake and output [facility] Start: 03-16-2023 Microbial culture, body fluid [facility] Start: 03-16-2023 Microscopic observation [Identifier] in Body fluid by Cyto stain [facility] Start: 03-16-2023 Notification of physician [facility] Start: 03-16-2023 Oxygen therapy [facility] Start: 03-16-2023 Patient referral to dietitian [facility] Start: 03-16-2023 Providing care according to standard [facility] Start: 03-16-2023 Referral to gastroenterology service [facility] Start: 03-16-2023 Referral to occupational therapist [facility] Start: 03-16-2023 Referral to service [facility] Start: 03-16-2023 Removal of urinary catheter [facility] Start: 03-16-2023 Respiratory therapy [facility] Start: 03-16-2023 Vital signs measurements [facility] Start: 03-16-2023 End: 03-16-2023 [facility] Start: 03-16-2023 Ultrasonic guidance for thoracentesis [facility] Start: 03-16-2023 Cell count and Differential panel - Body fluid [facility] Start: 03-16-2023 Glucose measurement, body fluid [facility] Start: 03-16-2023 Verification routine [facility] Start: 03-16-2023 Admission procedure [facility] Start: 03-16-2023 End: 03-16-2023 Administration of blood product [facility] Start: 03-16-2023 End: 03-16-2023 Blood culture [facility] Start: 03-16-2023 End: 03-17-2023 [facility] Start: 03-16-2023 Leukocyte reduced red blood cells [facility] Start: 03-06-2023 Patient discharge [facility] Start: 03-04-2023 Care regimes management [facility] Start: 03-04-2023 Notification of physician [facility] Start: 03-04-2023 [facility] Start: 03-03-2023 Admission procedure [facility] Start: 03-01-2023 Referral to service [facility] Start: 03-01-2023 Administration of blood product [facility] Start: 02-28-2023 Application of intermittent pneumatic compression device [facility] Start: 02-28-2023 Administration of blood product [facility] Start: 02-28-2023 Assessment of risk of venous thromboembolism [facility] Start: 02-28-2023 Care regimes management [facility] Start: 02-28-2023 Insertion of catheter into peripheral vein [facility] Start: 02-28-2023 Measuring intake and output [facility] Start: 02-28-2023 Notification of physician [facility] Start: 02-28-2023 Oxygen therapy [facility] Start: 02-28-2023 Physiotherapy of chest [facility] Start: 02-28-2023 Providing care according to standard [facility] Start: 02-28-2023 Provision of activity privileges [facility] Start: 02-28-2023 Referral to occupational therapist [facility] Start: 02-28-2023 Referral to service [facility] Start: 02-28-2023 Following clinical pathway protocol [facility] Start: 02-28-2023 Verification routine [facility] Start: 02-28-2023 Admission procedure [facility] Start: 02-28-2023 Hospital admission, emergency, from emergency room, medical nature [facility] Start: 02-28-2023 Leukocyte reduced red blood cells [facility] Start: 02-28-2023 End: 02-28-2023 [facility] Start: 02-28-2023 End: 02-28-2023 Administration of blood product [facility] Start: 02-28-2023 [facility] Start: 02-28-2023 Inhalation therapy procedure [facility] Start: 11-18-2022 Blood chemistry [facility] Start: 11-17-2022 Patient discharge [facility] Start: 11-17-2022 End: 11-17-2022 [facility] Start: 11-17-2022 Application of elastic bandage [facility] Start: 11-16-2022 End: 11-16-2022 Administration of blood product [facility] Start: 11-16-2022 Referral to service [facility] Start: 11-16-2022 Blood chemistry [facility] Start: 11-16-2022 Complete blood count [facility] Start: 11-15-2022 Care regimes management [facility] Start: 11-15-2022 Notification of physician [facility] Start: 11-15-2022 Following clinical pathway protocol [facility] Start: 11-15-2022 Ambulation without limitation [facility] Start: 11-15-2022 Assessment of risk of venous thromboembolism [facility] Start: 11-15-2022 Insertion of catheter into peripheral vein [facility] Start: 11-15-2022 Measuring intake and output [facility] Start: 11-15-2022 Oxygen therapy [facility] Start: 11-15-2022 Providing care according to standard [facility] Start: 11-15-2022 Referral to occupational therapist [facility] Start: 11-15-2022 Referral to service [facility] Start: 11-15-2022 End: 11-15-2022 [facility] Start: 11-15-2022 Troponin I measurement [facility] Start: 11-15-2022 End: 11-15-2022 Verification routine [facility] Start: 11-15-2022 Admission procedure [facility] Start: 10-01-2022 Administration of blood product [facility] Start: 10-01-2022 [facility] Start: 09-06-2022 Administration of blood product [facility] Start: 09-06-2022 [facility] Start: 04-29-2022 Patient referral [facility] Work Phone: Start: 02-16-2022 Patient discharge [facility] Start: 02-15-2022 Referral to service [facility] Start: 02-15-2022 Consultation [facility] Start: 02-15-2022 Methicillin resistant Staphylococcus aureus screening test [facility] Start: 02-15-2022 Continuous positive airway pressure ventilation treatment [facility] Start: 02-14-2022 Following clinical pathway protocol [facility] Start: 02-14-2022 Assessment of risk of venous thromboembolism [facility] Start: 02-14-2022 Elevation of head of bed [facility] Start: 02-14-2022 Incentive spirometry [facility] Start: 02-14-2022 Inhalation therapy procedure [facility] Start: 02-14-2022 Insertion of catheter into peripheral vein [facility] Start: 02-14-2022 Measuring intake and output [facility] Start: 02-14-2022 Oxygen therapy [facility] Start: 02-14-2022 Patient education [facility] Start: 02-14-2022 Providing care according to standard [facility] Start: 02-14-2022 Provision of activity privileges [facility] Start: 02-14-2022 Referral to occupational therapist [facility] Start: 02-14-2022 Referral to service [facility] Start: 02-14-2022 [facility] Start: 02-14-2022 Verification routine [facility] Work Phone: Start: 02-14-2022 Legionella pneumophila Ag [Presence] in Urine [facility] Work Phone: Start: 02-14-2022 Streptococcus pneumoniae antigen assay [facility] Work Phone: Start: 02-14-2022 [facility] Start: 02-14-2022 Admission procedure [facility] Start: 02-14-2022 [facility] Work Phone: Start: 02-14-2022 End: 02-14-2022 Blood culture [facility] Work Phone: Start: 02-14-2022 End: 02-14-2022 [facility] Work Phone: Start: 12-11-2021 Referral to service [facility] Start: 12-11-2021 Patient discharge [facility] Start: 12-10-2021 Catheterization of vein [facility] Start: 12-10-2021 Administration of blood product [facility] Start: 12-10-2021 [facility] Start: 12-09-2021 Respiratory secretion precautions [facility] Start: 12-09-2021 Referral to gastroenterology service [facility] Start: 12-08-2021 Application of intermittent pneumatic compression device [facility] Start: 12-08-2021 Assessment of risk of venous thromboembolism [facility] Start: 12-08-2021 Care regimes management [facility] Start: 12-08-2021 Elevation of head of bed [facility] Start: 12-08-2021 Incentive spirometry [facility] Start: 12-08-2021 Inhalation therapy procedure [facility] Start: 12-08-2021 Insertion of catheter into peripheral vein [facility] Start: 12-08-2021 Introduction of urinary catheter [facility] Start: 12-08-2021 Measuring intake and output [facility] Start: 12-08-2021 Oxygen therapy [facility] Start: 12-08-2021 Patient education [facility] Start: 12-08-2021 Providing care according to standard [facility] Start: 12-08-2021 Provision of activity privileges [facility] Start: 12-08-2021 Referral to service [facility] Start: 12-08-2021 [facility] Start: 12-08-2021 Following clinical pathway protocol [facility] Start: 12-08-2021 Streptococcus pneumoniae antigen assay [facility] Work Phone: Start: 12-08-2021 [facility] Start: 12-08-2021 Verification routine [facility] Work Phone: Start: 12-08-2021 Admission procedure [facility] Start: 12-08-2021 Blood culture [facility] Work Phone: Start: 12-08-2021 [facility] Work Phone: Start: 12-08-2021 Patient referral to dietitian [facility] Start: 10-26-2021 Patient discharge [facility] Work Phone: Start: 10-25-2021 Incentive spirometry [facility] Work Phone: Start: 10-24-2021 Catheterization of vein [facility] Work Phone: Start: 10-24-2021 Transfusion of blood product [facility] Work Phone: Start: 10-24-2021 Referral to service [facility] Work Phone: Start: 10-24-2021 [facility] Work Phone: Start: 10-24-2021 Administration of blood product [facility] Work Phone: Start: 10-24-2021 Leukocyte reduced red blood cells [facility] Work Phone: Start: 10-24-2021 End: 10-25-2021 [facility] Work Phone: Start: 10-24-2021 Referral to gastroenterology service [facility] Work Phone: Start: 10-24-2021 Administration of blood product [facility] Work Phone: Start: 10-23-2021 End: 10-24-2021 [facility] Work Phone: Start: 10-23-2021 Respiratory secretion precautions [facility] Work Phone: Start: 10-23-2021 Oxygen therapy [facility] Work Phone: Start: 10-23-2021 Care regimes management [facility] Work Phone: Start: 10-23-2021 Notification of physician [facility] Work Phone: Start: 10-23-2021 Ambulation without limitation [facility] Work Phone: Start: 10-23-2021 Assessment of risk of venous thromboembolism [facility] Work Phone: Start: 10-23-2021 Catheterization of vein [facility] Work Phone: Start: 10-23-2021 Insertion of catheter into peripheral vein [facility] Work Phone: Start: 10-23-2021 Providing care according to standard [facility] Work Phone: Start: 10-23-2021 Following clinical pathway protocol [facility] Work Phone: Start: 10-23-2021 Admission procedure [facility] Work Phone: Start: 10-23-2021 End: 10-23-2021 Blood culture [facility] Work Phone: Start: 10-23-2021 Inhalation therapy procedure [facility] Work Phone: Start: 10-09-2021 Patient referral [facility] Work Phone: Start: 10-02-2021 Patient discharge [facility] Work Phone: Start: 10-02-2021 Referral to service [facility] Work Phone: Start: 10-02-2021 [facility] Work Phone: Start: 10-02-2021 Application of intermittent pneumatic compression device [facility] Work Phone: Start: 10-01-2021 Following clinical pathway protocol [facility] Work Phone: Start: 10-01-2021 Aspiration precautions [facility] Work Phone: Start: 10-01-2021 Assessment of risk of venous thromboembolism [facility] Work Phone: Start: 10-01-2021 Bacteria identified in Sputum by Culture [facility] Work Phone: Start: 10-01-2021 Bacterial nucleic acid assay [facility] Work Phone: Start: 10-01-2021 Care regimes management [facility] Work Phone: Start: 10-01-2021 Elevation of head of bed [facility] Work Phone: Start: 10-01-2021 Fall prevention [facility] Work Phone: Start: 10-01-2021 Incentive spirometry [facility] Work Phone: Start: 10-01-2021 Inhalation therapy procedure [facility] Work Phone: Start: 10-01-2021 Insertion of catheter into peripheral vein [facility] Work Phone: Start: 10-01-2021 Introduction of urinary catheter [facility] Work Phone: Start: 10-01-2021 Measuring intake and output [facility] Work Phone: Start: 10-01-2021 Methicillin resistant Staphylococcus aureus screening test [facility] Work Phone: Start: 10-01-2021 Oxygen therapy [facility] Work Phone: Start: 10-01-2021 Patient education [facility] Work Phone: Start: 10-01-2021 Providing care according to standard [facility] Work Phone: Start: 10-01-2021 Provision of activity privileges [facility] Work Phone: Start: 10-01-2021 Referral to occupational therapist [facility] Work Phone: Start: 10-01-2021 Referral to service [facility] Work Phone: Start: 10-01-2021 Taking nasal swab [facility] Work Phone: Start: 10-01-2021 [facility] Work Phone: Start: 10-01-2021 Viral nucleic acid assay [facility] Work Phone: Start: 10-01-2021 Verification routine [facility] Work Phone: Start: 10-01-2021 Streptococcus pneumoniae antigen assay [facility] Work Phone: Start: 10-01-2021 End: 10-01-2021 [facility] Work Phone: Start: 10-01-2021 Admission procedure [facility] Work Phone: Start: 10-01-2021 Blood culture [facility] Work Phone: Start: 10-01-2021 Blood culture [facility] Work Phone: Start: 08-07-2021 Patient discharge [facility] Work Phone: Start: 08-06-2021 Following clinical pathway protocol [facility] Work Phone: Start: 08-06-2021 Ambulation without limitation [facility] Work Phone: Start: 08-06-2021 Assessment of risk of venous thromboembolism [facility] Work Phone: Start: 08-06-2021 Care regimes management [facility] Work Phone: Start: 08-06-2021 Elevation of head of bed [facility] Work Phone: Start: 08-06-2021 Inhalation therapy procedure [facility] Work Phone: Start: 08-06-2021 Insertion of catheter into peripheral vein [facility] Work Phone: Start: 08-06-2021 Oxygen therapy [facility] Work Phone: Start: 08-06-2021 Patient education [facility] Work Phone: Start: 08-06-2021 Providing care according to standard [facility] Work Phone: Start: 08-06-2021 Referral to occupational therapist [facility] Work Phone: Start: 08-06-2021 Referral to service [facility] Work Phone: Start: 08-06-2021 End: 08-06-2021 [facility] Work Phone: Start: 08-06-2021 Admission procedure [facility] Work Phone: Start: 08-06-2021 Bacteria identified in Blood by Culture Blood Culture [facility] Work Phone: Start: 08-06-2021 Patient referral to dietitian [facility] Work Phone: Start: 05-20-2021 Development of care plan [facility] Work Phone: Start: 05-18-2021 Patient discharge [facility] Work Phone: Start: 05-15-2021 Referral to service [facility] Work Phone: Start: 05-14-2021 [facility] Work Phone: Start: 05-12-2021 Neurological assessment [facility] Work Phone: Start: 05-11-2021 Neurological assessment [facility] Work Phone: Start: 05-08-2021 Referral to service [facility] Work Phone: Start: 05-07-2021 Oxygen therapy [facility] Work Phone: Start: 05-05-2021 Developing a treatment plan [facility] Work Phone: Start: 05-05-2021 Development of care plan [facility] Work Phone: Start: 05-05-2021 Following clinical pathway protocol [facility] Work Phone: Start: 05-05-2021 Patient referral to dietitian [facility] Work Phone: Start: 05-04-2021 Following clinical pathway protocol [facility] Work Phone: Start: 05-04-2021 Speech therapy assessment [facility] Work Phone: Start: 05-04-2021 Admission procedure [facility] Work Phone: Start: 05-04-2021 Measuring intake and output [facility] Work Phone: Start: 05-04-2021 Patient referral to dietitian [facility] Work Phone: Start: 05-04-2021 Referral to occupational therapist [facility] Work Phone: Start: 05-04-2021 Referral to service [facility] Work Phone: Start: 05-04-2021 Vital signs measurements [facility] Work Phone: Start: 05-04-2021 [facility] Work Phone: Start: 05-04-2021 Application of antithromboembolic stockings [facility] Work Phone: Alanine aminotransfe rase [Enzymatic activity/volume] in Serum or Plasma [facility] Work Phone: Alanine aminotransfe rase [Enzymatic activity/volume] in Serum or Plasma [facility] Albumin [Mass/volume ] in Serum or Plasma [facility] Work Phone: Albumin [Mass/volume ] in Serum or Plasma [facility] Alkaline phosphatase [Enzymatic activity/volume] in Serum or Plasma [facility] Work Phone: Alkaline phosphatase [Enzymatic activity/volume] in Serum or Plasma [facility] Anion gap measurement [facility] Work Phone: Anion gap measurement [facility] Anion gap measurement [facility] Aspartate aminotrans ferase [Enzymatic activity/volume] in Serum or Plasma [facility] Work Phone: Aspartate aminotrans ferase [Enzymatic activity/volume] in Serum or Plasma [facility] Bacteria identified in Blood by Culture Blood Culture [facility] Work Phone: Bacteria identified in Sputum by Culture [facility] Bacteria identified in Sputum by Culture [facility] Bacteria identified in Sputum by Respiratory culture [facility] Work Phone: Bacteria identified in Urine by Culture Urine Culture [facility] Work Phone: Bacteria identified in Urine by Culture [facility] Basic metabolic 2008 panel with ionized calcium - Serum or Plasma [facility] Bilirubin, total measurement [facility] Work Phone: Bilirubin, total measurement [facility] Blood culture [facility] Work Phone: Bone marrow biopsy, needle or trocar [facility] BUN/Creatinine ratio [facility] Work Phone: BUN/Creatinine ratio [facility] BUN/Creatinine ratio [facility] Calcium [Mass/volume ] in Serum or Plasma [facility] Work Phone: Calcium [Mass/volume ] in Serum or Plasma [facility] Calcium [Mass/volume ] in Serum or Plasma [facility] Carbon dioxide, tota l [Moles/volume] in Serum or Plasma [facility] Work Phone: Carbon dioxide, tota l [Moles/volume] in Serum or Plasma [facility] Carbon dioxide, tota l [Moles/volume] in Serum or Plasma [facility] CBC W Auto Different ial panel - Blood [facility] Work Phone: CBC W Auto Different ial panel - Blood [facility] CBC W Auto Different ial panel - Blood [facility] CBC W Auto Different ial panel - Blood [facility] CBC W Auto Different ial panel - Blood [facility] CBC W Auto Different ial panel - Blood [facility] CBC W Auto Different ial panel - Blood [facility] CBC W Auto Different ial panel - Blood [facility] CBC W Auto Different ial panel - Blood [facility] CBC W Auto Different ial panel - Blood [facility] Chloride [Moles/volu me] in Serum or Plasma [facility] Work Phone: Chloride [Moles/volu me] in Serum or Plasma [facility] Chloride [Moles/volu me] in Serum or Plasma [facility] Cobalamin (Vitamin B 12) [Mass/volume] in Serum or Plasma [facility] Comprehensive metabo lic 1999 panel - Serum or Plasma [facility] Comprehensive metabo lic 1999 panel - Serum or Plasma [facility] Comprehensive metabo lic 1999 panel - Serum or Plasma [facility] Creatinine [Moles/vo lume] in Serum or Plasma [facility] Work Phone: Creatinine [Moles/vo lume] in Serum or Plasma [facility] Creatinine [Moles/vo lume] in Serum or Plasma [facility] CT Abdomen and Pelvi s W contrast IV [facility] CT Chest [facility] CT Chest [facility] CT Chest [facility] Erythrocyte mean cor puscular volume determination [facility] Exercise tolerance test [facility] Ferritin [Mass/volum e] in Serum or Plasma [facility] Work Phone: Ferritin [Mass/volum e] in Serum or Plasma [facility] Ferritin [Mass/volum e] in Serum or Plasma [facility] Ferritin [Mass/volum e] in Serum or Plasma [facility] Ferritin [Mass/volum e] in Serum or Plasma [facility] Ferritin [Mass/volum e] in Serum or Plasma [facility] Ferritin [Mass/volum e] in Serum or Plasma [facility] Ferritin [Mass/volum e] in Serum or Plasma [facility] Folate [Mass/volume] in Serum or Plasma [facility] Folate [Mass/volume] in Serum or Plasma [facility] Folate [Moles/volume ] in Serum or Plasma [facility] Glucose [Mass/volume ] in Serum or Plasma [facility] Work Phone: Glucose [Mass/volume ] in Serum or Plasma [facility] Glucose [Mass/volume ] in Serum or Plasma [facility] Haptoglobin [Mass/vo lume] in Serum or Plasma [facility] Hematocrit [Volume F raction] of Blood [facility] Work Phone: Hematocrit [Volume F raction] of Blood [facility] Hematocrit [Volume F raction] of Blood [facility] Hematocrit [Volume F raction] of Blood [facility] Hematocrit [Volume F raction] of Blood [facility] Hematocrit [Volume F raction] of Blood [facility] Hemoglobin [Mass/vol ume] in Blood [facility] Work Phone: Hemoglobin [Mass/vol ume] in Blood [facility] Hemoglobin [Mass/vol ume] in Blood [facility] Hemoglobin [Mass/vol ume] in Blood [facility] Hemoglobin [Mass/vol ume] in Blood [facility] Hemoglobin [Mass/vol ume] in Blood [facility] Hemoglobin [Mass/vol ume] in Blood [facility] Hemoglobin A1c/Hemoglobin.total in Blood [facility] Work Phone: Iron and Iron bindin g capacity panel - Serum or Plasma [facility] Work Phone: Iron and Iron bindin g capacity panel - Serum or Plasma [facility] Iron and Iron bindin g capacity panel - Serum or Plasma [facility] Iron and Iron bindin g capacity panel - Serum or Plasma [facility] Iron and Iron bindin g capacity panel - Serum or Plasma [facility] Iron and Iron bindin g capacity panel - Serum or Plasma [facility] Iron and Iron bindin g capacity panel - Serum or Plasma [facility] Iron and Iron bindin g capacity panel - Serum or Plasma [facility] Iron and Iron bindin g capacity panel - Serum or Plasma [facility] Lactate dehydrogenas e [Enzymatic activity/volume] in Body fluid by Pyruvate to lactate reaction [facility] Lactate dehydrogenas e measurement [facility] Work Phone: Lactate dehydrogenas e measurement [facility] Lactate dehydrogenas e measurement [facility] Lactate dehydrogenas e measurement [facility] Lactate dehydrogenas e measurement [facility] Lactate dehydrogenas e measurement [facility] Lactate dehydrogenas e measurement [facility] Lactate dehydrogenas e measurement [facility] Legionella pneumophi la Ag [Presence] in Urine [facility] Work Phone: Leukocytes [#/volume ] in Blood [facility] Work Phone: Leukocytes [#/volume ] in Blood [facility] Leukocytes [#/volume ] in Blood [facility] Lipid 1996 panel - S bev or Plasma [facility] Magnesium [Mass/volu me] in Serum or Plasma [facility] Magnesium measurement [facility] Mean corpuscular hem oglobin concentration determination [facility] Work Phone: Mean corpuscular hem oglobin concentration determination [facility] Mean corpuscular hem oglobin concentration determination [facility] Mean corpuscular hem oglobin determination [facility] Work Phone: Mean corpuscular hem oglobin determination [facility] Mean corpuscular hem oglobin determination [facility] Measurement of occul t blood in stool specimen using immunoassay [facility] Measurement of renal function [facility] Work Phone: Measurement of renal function [facility] Measurement of renal function [facility] Measurement of respi ratory function [facility] Measurement of respi ratory function [facility] Microscopic observat ion [Identifier] in Unspecified specimen by Gram stain Gram Stain [facility] Work Phone: Neutrophil count [facility] Work Phone: Neutrophil count [facility] Neutrophil percent differential count [facility] Work Phone: Neutrophil percent differential count [facility] Patient Education [facility] Work Phone: Patient referral [facility] Work Phone: Platelets [#/volume] in Blood [facility] Work Phone: Platelets [#/volume] in Blood [facility] Platelets [#/volume] in Blood [facility] Potassium [Moles/vol ume] in Serum or Plasma [facility] Work Phone: Potassium [Moles/vol ume] in Serum or Plasma [facility] Potassium [Moles/vol ume] in Serum or Plasma [facility] Prostate specific an tigen measurement [facility] Protein [Mass/volume ] in Body fluid [facility] Red blood cell count [facility] Work Phone: Red blood cell count [facility] Red blood cell count [facility] Red cell distributio n width determination [facility] Work Phone: Red cell distributio n width determination [facility] Red cell distributio n width determination [facility] Respiratory Culture Respiratory Culture [facility] Work Phone: Respiratory microbial culture Respiratory Culture [facility] Work Phone: Respiratory pathogen s DNA and RNA 12b panel - Unspecified specimen by JUSTIN with probe detection [facility] Work Phone: Reticulocyte [facility] Work Phone: Reticulocyte [facility] Serum inorganic phos phate measurement [facility] Sodium [Moles/volume ] in Serum or Plasma [facility] Work Phone: Sodium [Moles/volume ] in Serum or Plasma [facility] Sodium [Moles/volume ] in Serum or Plasma [facility] Streptococcus pneumo niae antigen assay [facility] Work Phone: Thyroid stimulating hormone measurement [facility] Total protein measurement [facility] Work Phone: Total protein measurement [facility] Urea nitrogen [Mass/ volume] in Serum or Plasma [facility] Work Phone: Urea nitrogen [Mass/ volume] in Serum or Plasma [facility] Urea nitrogen [Mass/ volume] in Serum or Plasma [facility] US Heart limited [facility] Vitamin B12 measurement [facility] Vitamin B12 measurement [facility] Vitamin B12 measurement [facility] Vitamin D, 25-hydrox y measurement [facility] XR Chest PA and Lateral [facility] Work Phone: [facility] Immunizations Immunization Date Immunization Notes Care Provider Judson cummings 03-01-2023 Influenza High-Dose Quadrivalent Dr. Donna Will Work Phone: [facility] 01-08-2022 influenza, injectabl e, quadrivalent, preservative free [employer] DANNIELLE PIÑA Work Phone: [facility] 01-08-2022 influenza, seasonal, injectable [employer] DANNIELLE PIÑA Work Phone: [facility] 05-09-2021 pneumococcal conjuga te vaccine, [address] Donna Will Work Phone: [facility] 12-22-2020 Covid (Pfizer) Dr. Donna mckeon Work Phone: [facility] 11-24-[address] Donna Will Work Phone: [facility] 05-19-2020 Covid (Pfizer) Dr. Donna mckeon Work Phone: [facility] 04-27-2020 Covid (Pfizer) Dr. Donna mckeon Work Phone: [facility] 11-25-[address] Page Will Work Phone: [facility] Work Phone: 11-25-2011 pneumococcal vaccine , unspecified formulation Dr. Donna Will Work Phone: [facility] Payers Date Payer Category Payer Medicare [id number] 2021 Self-pay [id number] Medicare [id number] Unknown [id number] 2.16.8 40.1.368535.3.579.2.462 Unknown [id number] 2.16.8 40.1.369602.3.579.2.462 Unknown [id number] 2.16.8 40.1.330941.3.579.2.462 Unknown [id number] 2.16.8 40.1.084904.3.579.2.462 Unknown [id number] 2.16.8 40.1.464061.3.579.2.462 Unknown [id number] 2.16.8 40.1.209278.3.579.2.462 Unknown [id number] 2.16.8 40.1.844817.3.579.2.462 Unknown [id number] 2.16.8 40.1.063260.3.579.2.462 Unknown [id number] 2.16.8 40.1.892653.3.579.2.462 Unknown [id number] 2.16.8 40.1.505988.3.579.2.462 Unknown [id number] 2.16.8 40.1.433076.3.579.2.462 Unknown [id number] 2.16.8 40.1.245894.3.579.2.462 Unknown [id number] 2.16.8 40.1.743663.3.579.2.462 Unknown [id number] 2.16.8 40.1.705164.3.579.2.462 Unknown [id number] 2.16.8 40.1.678497.3.579.2.462 Unknown [id number] 2.16.8 40.1.324373.3.579.2.462 Unknown [id number] 2.16.8 40.1.418368.3.579.2.462 Unknown [id number] 2.16.8 40.1.656072.3.579.2.462 Unknown [id number] 2.16.8 40.1.790139.3.579.2.462 Unknown [id number] 2.16.8 40.1.031050.3.579.2.462 Unknown [id number] 2.16.8 40.1.034783.3.579.2.462 Unknown [id number] 2.16.8 40.1.951209.3.579.2.462 Unknown [id number] 2.16.8 40.1.821717.3.579.2.462 Unknown [id number] 2.16.8 40.1.018948.3.579.2.462 Unknown [id number] 2.16.8 40.1.881991.3.579.2.462 Unknown [id number] 2.16.8 40.1.350442.3.579.2.462 Unknown [id number] 2.16.8 40.1.921916.3.579.2.462 Unknown [id number] 2.16.8 40.1.148478.3.579.2.462 Unknown [id number] 2.16.8 40.1.147645.3.579.2.462 Unknown [id number] 2.16.8 40.1.522009.3.579.2.462 Unknown [id number] 2.16.8 40.1.378430.3.579.2.462 Unknown [id number] 2.16.8 40.1.693176.3.579.2.462 Unknown [id number] 2.16.8 40.1.814015.3.579.2.462 Unknown [id number] 2.16.8 40.1.767885.3.579.2.462 Unknown [id number] 2.16.8 40.1.588793.3.579.2.462 Unknown [id number] 2.16.8 40.1.650198.3.579.2.462 Unknown [id number] 2.16.8 40.1.782053.3.579.2.462 Unknown [id number] 2.16.8 40.1.346606.3.579.2.462 Unknown [id number] 2.16.8 40.1.077906.3.579.2.462 Unknown [id number] 2.16.8 40.1.461289.3.579.2.462 Unknown [id number] 2.16.8 40.1.476186.3.579.2.462 Unknown [id number] 2.16.8 40.1.040973.3.579.2.462 Unknown [id number] 2.16.8 40.1.370388.3.579.2.462 Unknown [id number] 2.16.8 40.1.596174.3.579.2.462 Unknown [id number] 2.16.8 40.1.433944.3.579.2.462 Unknown [id number] 2.16.8 40.1.794419.3.579.2.462 Unknown [id number] 2.16.8 40.1.316031.3.579.2.462 Unknown [id number] 2.16.8 40.1.741685.3.579.2.462 Unknown [id number] 2.16.8 40.1.946025.3.579.2.462 Unknown [id number] 2.16.8 40.1.198199.3.579.2.462 Unknown [id number] 2.16.8 40.1.041561.3.579.2.462 Unknown [id number] 2.16.8 40.1.128741.3.579.2.462 Unknown [id number] 2.16.8 40.1.795013.3.579.2.462 Unknown [id number] 2.16.8 40.1.887594.3.579.2.462 Unknown [id number] 2.16.8 40.1.379548.3.579.2.462 Unknown [id number] 2.16.8 40.1.089830.3.579.2.462 Unknown [id number] 2.16.8 40.1.622375.3.579.2.462 Unknown [id number] 2.16.8 40.1.604250.3.579.2.462 Unknown [id number] 2.16.8 40.1.619501.3.579.2.462 Unknown [id number] 2.16.8 40.1.423769.3.579.2.462 Unknown [id number] 2.16.8 40.1.975888.3.579.2.462 Unknown [id number] 2.16.8 40.1.306108.3.579.2.462 Unknown [id number] 2.16.8 40.1.287164.3.579.2.462 Unknown [id number] 2.16.8 40.1.935078.3.579.2.462 Unknown [id number] 2.16.8 40.1.308020.3.579.2.462 Unknown [id number] 2.16.8 40.1.287030.3.579.2.462 Unknown [id number] 2.16.8 40.1.816749.3.579.2.462 Unknown [id number] 2.16.8 40.1.843013.3.579.2.462 Unknown [id number] 2.16.8 40.1.602907.3.579.2.462 Unknown [id number] 2.16.8 40.1.854355.3.579.2.462 Unknown [id number] 2.16.8 40.1.223902.3.579.2.462 Unknown [id number] 2.16.8 40.1.248913.3.579.2.462 Unknown [id number] 2.16.8 40.1.269591.3.579.2.462 Unknown [id number] 2.16.8 40.1.316653.3.579.2.462 Unknown [id number] 2.16.8 40.1.709415.3.579.2.462 Social History Date Type Detail Facility Start: 05-29-2021 End: 06-05-2023 Tobacco smoking status COIS Unknown if ever smoked [facility] Start: 03-14-2021 Occasional [facility] Start: 03-14-2021 None [facility] Start: 03-14-2021 Cigarettes [facility] Start: 1950 Sex Assigned At Male [facility] Start: 1950 Sex Assigned At Not on file [facility] Gender identity Not on file [facility] Start: 06-23-2024 End: 07-08-2024 Tobacco smoking status COIS Current some day smoker [facility] Start: 06-30-2024 Sex Male (finding) [facility] Medical Equipment Procedure Code Equipment Code Equipment Origin al Text Equipment Identifier Dates EGD, with monitored anesthesia care ()[id number] FDA Start: 04-06-2024 Goals Date Patient Goal Desired Activity /State Functional Status Date Assessment Result Facility 06-25-2024 Functional status Standby Assist [facility] Work Phone: 06-24-2024 Functional status Ambulates;Stand with Ur inal [facility] Work Phone: 04-08-2024 Functional status Ambulates;Stand with Ur inal [facility] Work Phone: 03-21-2023 Functional status Ambulates;Basilio r;Bathroom Privilege [facility] Work Phone: 03-06-2023 Functional status Ambulates;Bath room Privilege;Active Range of Motion;Stand with Urinal [facility] Work Phone: 11-17-2022 Functional status Ambulates;Bathroom Priv ilege [facility] Work Phone: 02-16-2022 Functional status Chair [facility] Work Phone: 12-11-2021 Functional status Ambulates [facility] Work Phone: 10-26-2021 Functional status Ambulates [facility] Work Phone: 10-02-2021 Functional status Ambulates [facility] Work Phone: 10-01-2021 Functional status Tolerates Activity Well [facility] Work Phone: 08-07-2021 Functional status Patient Activity Chair [facility] Work Phone: 08-07-2021 Functional status Activity Abili ty With Assist of 1 [facility] Work Phone: 08-06-2021 Functional status Activity Abili ty With Assist of 2 [facility] Work Phone: 05-18-2021 Functional status With Assist of 1 [facility] Work Phone: 05-15-2021 Functional status Chair [facility] Work Phone: 05-04-2021 Functional status Ambulates;Chair [facility] Work Phone: 04-28-2021 Functional status With Assist of 2 [facility] Work Phone: 04-27-2021 Functional status Chair [facility] Work Phone: 04-26-2021 Functional status Chair [facility] Work Phone: 04-11-2021 Functional status Ambulates [facility] Work Phone: 03-25-2021 Functional status Chair [facility] Work Phone: Mental Status Date Assessment Result Facility 07-08-2024 Cognitive function Awake;Alert;A ppropriate;Follow s Commands [facility] Work Phone: 06-25-2024 Cognitive function Voice/Name [facility] Work Phone: 05-27-2024 Cognitive function Awake;Alert;A ppropriate;Follow s Commands [facility] Work Phone: 05-20-2024 Cognitive function Voice/Name [facility] Work Phone: 04-08-2024 Cognitive function Voice/Name [facility] Work Phone: 06-05-2023 Cognitive function Voice/Name [facility] Work Phone: 05-09-2023 Cognitive function Awake;Alert;A ppropriate;Follow s Commands [facility] Work Phone: 03-21-2023 Cognitive function Voice/Name [facility] Work Phone: 03-16-2023 Cognitive function Awake;Alert;Follows Co mmands [facility] Work Phone: 03-06-2023 Cognitive function Voice/Name [facility] Work Phone: 02-06-2023 Cognitive function Voice/Name [facility] Work Phone: 01-30-2023 Cognitive function Awake;Alert;A ppropriate;Follow s Commands [facility] Work Phone: 12-16-2022 Cognitive function Arousable To Voice/Nam e [facility] Work Phone: 11-17-2022 Cognitive function Voice/Name [facility] Work Phone: 11-08-2022 Cognitive function Voice/Name [facility] Work Phone: 05-13-2022 Cognitive function Awake;Alert;A ppropriate;Follow s Commands [facility] Work Phone: 05-06-2022 Cognitive function Arousable To Voice/Nam [facility] Work Phone: 02-16-2022 Cognitive function Appropriate;Cooperativ [facility] Work Phone: 01-28-2022 Cognitive function Voice/Name [facility] Work Phone: 01-14-2022 Cognitive function Voice/Name [facility] Work Phone: 12-11-2021 Cognitive function Touch/Shaking [facility] Work Phone: 10-26-2021 Cognitive function Voice/Name [facility] Work Phone: 10-02-2021 Cognitive function Voice/Name [facility] Work Phone: 08-07-2021 Cognitive function Level Of Cons ciousness Awake;Alert;Appropriate;Follow s Commands [facility] Work Phone: 08-07-2021 Cognitive function Appropriate;C ooperative;[facility] Work Phone: 08-06-2021 Cognitive function Patient Orien tation Person;Place;Time [facility] Work Phone: 08-06-2021 Cognitive function Appropriate;Cooperativ [facility] Work Phone: 08-06-2021 Cognitive function Level Of Cons ciousness Awake;Alert;Appropriate;Follow s Commands [facility] Work Phone: 05-18-2021 Cognitive function Voice/Name [facility] Work Phone: 05-12-2021 Cognitive function Appropriate;[facility] Work Phone: 05-03-2021 Cognitive function Voice/Name [facility] Work Phone: 04-28-2021 Cognitive function Voice/Name [facility] Work Phone: 04-26-2021 Cognitive function Appropriate;[facility] Work Phone: 04-25-2021 Cognitive function Voice/Name [facility] Work Phone: 04-11-2021 Cognitive function Voice/Name [facility] Work Phone: 03-25-2021 Cognitive function Voice/Name [facility] Work Phone: Clinical Notes 04-24-2021 to 07-20-2024 Note Date & Type Note Facility 07-20-2024 Progress note Note Date/Time July 20, 2024 3:19pm [facility] [address] [place] [id number] OFFICE VISIT Date of Service: 07/20/24 1447 MR#: [id number] Acct: [id number] Name: JAYDON ALONZO Jr. Rep #: [id number] : 1950 From: Tobi Zapata MD Age/Sex: 73/M [place] [facility] [place] Status: Signed HPI Subjective Date of Service 07/20/24 Chief Complaint F/u for Iron deficiency anemia. History of Present Illness 73 y/o man with H/O Hodgkins lymphoma S/P ABVD and Radiation 2000, was found to have Iron deficiency Anemia in April 2021. 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 He was started on Oral Iron pills in April2021 with no improvement. Capsule Endoscopy on 01/08/2022 was negative. Got IV Venofer 1500mg in Jan 2022 with improvement in Iron profile improved. He gotinjectafer in April 2022. He was found to have Hematuria and seen by Urology, CTa/p on 07/08/2022 showed renal cysts. Had FOBT done which was positive on 07/29/2022. Had Capsule Endoscopy on 08/19/2022 which showed some erosions. He was given PRBC transfusion and received Venofer infusion in Oct 2022. He was found to have Hgb 7.4 and transfused 2 UPRBC on 05/08/2023. Bone marrow evaluation on 06/05/2023 showed normocellular marrow. He was found to have Iron deficiency anemia and received IV iron Injectafer on 07/17/2023 and 07/24/2023. Heis on oral iron, comes for follow up. Feeling tired. Denies blood in the stools. Interval History PFSH Medical History MRSA (methicillin resistant staph aureus) culture positive Ischemic cardiomyopathy COVID-19 Lethargic COPD with acute exacerbation Elevated troponin I level LUIS (acute kidney injury) Hypoxemia Chronic kidney disease (CKD), stage III (moderate) Acute hypoxic on chronic hypercapnic respiratory failure FTT (failure to thrive) in adult Former smoker On home oxygen therapy Bleeding tendency Ulcer High cholesterol History of stress test HTN (hypertension) Tobacco abuse History of pulmonary embolus (PE) (04/30/21) Essential hypertension Type 2 diabetes mellitus DVT (deep venous thrombosis) (05/01/21) Rhinovirus Acute respiratory failure with hypoxia Physical debility COVID-19 in immunocompromised patient Nicotine dependence, cigarettes, uncomplicated Diabetes Arthritis Cancer COPD (chronic obstructive pulmonary disease) History of basal cell carcinoma Atherosclerosis of coronary artery of [place] heart without angina pectoris Pneumonia Non-Hodgkin lymphoma History of pilonidal cyst Allergic rhinitis 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 complications Gastritis Colon polyp Obesity Asthma Chronic bronchitis Positive colorectal cancer screening using Cologuard test RA (rheumatoid arthritis) Surgical History History of embolic filter insertion History of heart artery stent Status post cardiac surgery H/O cardiac catheterization Presence of IVC filter (04/2021) History of coronary artery stent placement (10/22/13) History of thymectomy Hx of lymph node excision History of excision of pilonidal cyst Family History Father Arthritis Bleeding disorder Hypertension Kidney disease Cancer Skin Anemia blood clots Emphysema lung Mother Colon cancer Cancer Lung Cancer Diabetes Brother Thyroid disorder Social History household members: spouse Smoking Status: Current some day smoker tobacco type: cigarettes Tobacco: How many years used: 55 second hand exposure: Yes alcohol intake: current alcohol intake frequency: holidays/special occasions only substance use type: does not use caffeine: Yes Type: coffee Number of servings: 3 what type of physical activity do you participate in: none frequency: does not exercise seatbelt use: always Intake Vital Signs 04/27/24 13:52 07/08/24 12:29 07/20/24 14:48 Height 5 ft 11 in 5 ft 11 in 5 ft 11 in BP 112/58 L Blood Pressure Location Lt brachial Position Sitting Respiration 18 Pulse 80 Pulse Source Monitor Temp 98.2 F Temperature Source Temporal Artery Pulse Oximetry (%) 99 Oxygen Delivery Method nasal canula Oxygen Flow Rate (L/min) 4 Intake Is patient in pain?: No Allergies No Known Allergies Allergy (Verified 07/20/24 14:53) Medications ?Medication ?Instructions ?Recorded ?Confirmed ?Type finasteride 5 mg tablet 5 mg PO DAILY prostate 08/1407/20/24 History tamsulosin 0.4 mg capsule 0.4 mg PO QHS prostate 08/1407/20/24 History multivitamin 1 tab PO DAILY vitamin 09/1307/20/24 History carvedilol 3.125 mg tablet 3.125 mg PO BID BP #60 tabs 06/05/23 07/20/24 Rx atorvastatin 40 mg tablet 20 mg (1/2 x 40 mg) PO QHS 0 09/18/23 07/20/24 Rx cholesterol #90 tabs budesonide 1 mg/2 mL suspension 1 mg (2 mL) inhalation Q12H 09/19/23 07/20/24 Rx for nebulization wheezing/SOB #120 mL ipratropium 0.5 mg-albuterol 3 mg 3 ml inhalation Q4H PRN PRN SOB 09/19/23 07/20/24 Rx (2.5 mg base)/3 mL nebulization &/OR WHEEZING #270 mL soln escitalopram oxalate 10 mg tablet 10 mg PO DAILY mood 90 days #90 10/29/23 07/20/24 Rx tabs mirtazapine 15 mg tablet (Remeron) 7.5 mg (1/2 x 15 mg ) PO QHS sleep 10/29/23 07/20/24 Rx #90 tabs insulin aspart U-100 100 unit/mL See Protocol subcut A [facility] high 11/12/23 07/20/24 Rx (3 mL) subcutaneous pen blood glucose 1 month #15 mL needle (disp) 32 gauge 32 gauge x #100 ea 11/12/23 Rx 5/16 (Easy Touch Hypodermic Needle) pen needle, diabetic 32 gauge x #100 ea 12/03/2307/20 Rx 5/32 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 sensor (FreeStyle #1 ea 12/24/23 5 Rx Basilio 3 Sensor device) 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,chain person,cont #1 ea 12/24/23 07/20/24 Rx (FreeStyle Basilio 3 Alexander) furosemide 40 mg tablet (Lasix) 20 mg (1/2 x 40 mg) PO DAILY 03/08/24 07/20/24 Rx diuretic #60 tabs empagliflozin 10 mg tablet 10 mg PO QDAY diabetes /03/2007/20/24 History (Jardiance) ferrous sulfate 325 mg (65 mg 325 mg PO QODAY Suppleme nt 04/05/24 07/20/24 History iron) tablet (FeroSul) vancomycin 500 mg/100 mL in 500 mg IV Q12H 26 days #5, 200 mL 06/24/24 07/20/24 Rx dextrose 5 % intravenous piggyback insulin glargine-yfgn 100 unit/mL 20 unit (0.2 mL) sub cut BIDCM high 06/25/24 07/20/24 Rx (3 mL) subcutaneous pen blood glucose #15 mL cholecalciferol (vitamin D3) 50 50 mcg PO QDAY 5 07/20/24 History mcg (2,000 unit) capsule pantoprazole 40 mg tablet,delayed 40 mg PO BID 5 07/20/24 History release (Protonix) amoxicillin 875 mg-potassium 875 mg PO Q12H #10 TABLET S 07/08/24 07/20/24 Rx clavulanate 125 mg tablet vancomycin 10 gram intravenous g continuous IV infusio n 07/20/24 07/20/24 History solution Have you fallen in the past year?: No Central Venous Access Central Venous Access: Yes Port/PICC: PICC Microbiology 07/29/22 11:02 Stool Stool Occult Blood (FOREST) - Final Occult Blood Positive Laboratory Tests 10/02/21 12/26/21 02/05/22 06:04 13:52 10:43 WBC 8.0 8.5 11.4 H Hgb 8.0 L 8.4 L 10.8 L Hct 25.9 L 26.3 L 34.9 L MCV 89.3 Plt Count 278 221 355 Absolute Neuts (auto) 4.4 Sodium 141 Potassium 4.3 Chloride 109 H Carbon Dioxide 27.0 BUN 32 H Creatinine 1.34 H Glucose 196 H Calcium 9.5 Iron 88 TIBC 246 L Iron Saturation 35.8 Ferritin 631 H Total Bilirubin 0.50 AST 10 L ALT 18 Alkaline Phosphatase 92 Lactate Dehydrogenase 195 Total Protein 6.8 Albumin 3.5 Globulin 3.3 Vitamin B12 941 H Folate 8.40 04/29/22 07/23/22 09/04/22 10:20 12:40 12:38 WBC 10.8 5.4 7.2 Hgb 8.5 L 7.3 L 6.9 L Hct 26.4 L 24.1 L 22.5 L MCV Plt Count 398 202 267 Absolute Neuts (auto) Sodium 141 Potassium 4.5 Chloride 109 H Carbon Dioxide 24.0 BUN 30 H Creatinine 1.31 H Glucose 209 H Calcium 9.3 Iron 38 L 98 TIBC 285 Iron Saturation 14.8 L 34.4 Ferritin 203 38 Total Bilirubin AST 9 L ALT 15 L Alkaline Phosphatase 82 Lactate Dehydrogenase 223 Total Protein 7.4 Albumin 3.2 Globulin 4.2 Vitamin B12 Folate 11/26/22 01/21/23 05/28/23 14:35 13:20 10:28 WBC 5.8 11.0 7.4 Hgb 9.0 L 7.4 L 8.5 L Hct 29.7 L 24.4 L 28.5 L MCV Plt Count 233 446 210 Absolute Neuts (auto) Sodium 141 Potassium 4.6 Chloride 107 Carbon Dioxide 29.0 BUN 33 H Creatinine 1.78 H Glucose 231 H Calcium 8.5 Iron 53 L 29 L 43 L TIBC 258 325 285 Iron Saturation 20.5 8.9 L 15.1 Ferritin 85 48 28 Total Bilirubin 0.50 AST 13 L ALT 23 Alkaline Phosphatase 71 Lactate Dehydrogenase 201 Total Protein 6.5 Albumin 3.3 Globulin 3.2 Vitamin B12 Folate 06/05/23 09/04/23 10/30/23 08:01 14:30 14:00 WBC 7.5 8.3 9.1 Hgb 9.2 L 9.8 L 11.0 L Hct 30.5 L 30.6 L 33.6 L MCV Plt Count 242 202 245 Absolute Neuts (auto) 6.0 Sodium Potassium Chloride Carbon Dioxide BUN Creatinine Glucose Calcium Iron 90 70 TIBC 268 239 L Iron Saturation 33.6 29.3 Ferritin 306 186 Total Bilirubin AST ALT Alkaline Phosphatase Lactate Dehydrogenase Total Protein Albumin Globulin Vitamin B12 947 H Folate 54.80 01/27/24 07/12/24 07/20/24 13:15 10:13 14:10 WBC 12.2 H 7.2 Hgb 9.8 L 7.4 L Hct 31.5 L 24.5 L MCV Plt Count 353 199 Absolute Neuts (auto) Sodium Potassium Chloride Carbon Dioxide BUN Creatinine 1.47 H Glucose Calcium Iron 62 L 37 L TIBC 254 Iron Saturation 24.4 16.8 Ferritin 80 137 Total Bilirubin AST ALT Alkaline Phosphatase Lactate Dehydrogenase Total Protein Albumin Globulin Vitamin B12 Folate Exam Physical Exam Const alert, oriented x3 and no apparent distress HEENT normocephalic and head/scalp atraumatic Eyes General Eye: normal appearance of both eyes Neck Neck Narrative: O2 per nc Resp normal respiratory effort and clear to auscultation bilaterally Cardio regular rate, regular rhythm, S1 normal heart sound and S2 normal heart sound GI normal to inspection, nondistended, normoactive bowel sounds and non-tender Extremity General Extremity: edema bilateral lower extremity Neuro oriented x3 and moves all extremities Psych mental status grossly normal Coding Level of Care Code Off vis,est,level 3 Exam Problem Focused Diagnoses Iron deficiency anemia, unspecified iron deficiency anemia type D50.9 Iron deficiency anemia type: unspecified iron deficiency 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 D50.8 Assessment and Plan Assessment and Plan (1) Iron deficiency anemia: Status: Chronic Qualifiers: Iron deficiency anemia type: unspecified iron deficiency Qualified Code(s): D50.9 - Iron deficiency anemia, unspecified Comment: HGB is 7.4 today, Iron level is 34 today. Plan: To obtain Pre-authorization and do IV replacement. (2) 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: Status: Chronic Comment: Has been taking Oral iron since April 2021. Got IV Venofer 1500mg in Jan 2022. Got Injectafer in April 2022, iron profile has corrected. FOBT positive, Capsule endoscopy on 08/19/2022 showed gastric erosions. Iron level was 43-low and Ferritin 28 low normal. Bone marrow biopsy on 06/05/2023 shows normocellular marrow, Iron 1+. Got Injectafer in June 2023. Comes for follow up. anemia and Iron deficiency has worsened. Plan: To obtain Pre-authorization and do IV iron replacement. Recheck Iron profile in 8 weeks. Plan Details Follow Up: 8 Weeks Clinical Quality Measures Falls Risk Screening/Assistive Devices Have you fallen in the past year?: No 07/20/24 1519 <Electronically signed by Tobi Panchal> Date _ Tobi Zapata MD [facility] Signature: Date (if applicable) CC: Dr. Donna Will MD ~ [facility] Work Phone: 1(415) 645-249905-15-2025 Radiology Diagnostic study [facility]05-15-2025 Discharge summary Author Marco Hoffman [facility] Note Date/Time July 08, 2024 5:10p [facility] Medical Records Department [address] [place] [address] Emergency Department Summary 07/08/24 MR#: [id number] Acct: [id number] Name: JAYDON ALONZO Jr. Rep #:[id number] : 1950 73 From: Marco Lilly PCP: Dr. Donna Will MD Status:REG ER Location: ED HPI History of Present Illness Chief Complaint: General Illness Informant: patient Onset/Context/Timing Onset: Days (2) Context: Gradual Onset Timing: Continuous Quality: Weakness Location: Generalized Worsened by: Ambulation Relieved by: Nothing Narrative Narrative: Patient presents with generalized weakness that has been getting worse over the past 2 days. Patient states he feels better today. Patient has a history of MRSA infection and has blood. Patient is on vancomycin. Patient states that his infectious disease doctor told him to come to the emergency department. Family states patient's dose of vancomycin has been increased recently. Patientadmits to some subjective chills. Patient admits to some shortness of breath and cough. Patient states his weakness is worse with ambulation. PFSH PFS Medical History MRSA (methicillin resistant staph aureus) culture positive Ischemic cardiomyopathy COVID-19 Lethargic COPD with acute exacerbation Elevated troponin I level LUIS (acute kidney injury) Hypoxemia Chronic kidney disease (CKD), stage III (moderate) Acute hypoxic on chronic hypercapnic respiratory failure FTT (failure to thrive) in adult Former smoker On home oxygen therapy Bleeding tendency Ulcer High cholesterol History of stress test HTN (hypertension) Tobacco abuse History of pulmonary embolus (PE) (04/30/21) Essential hypertension Type 2 diabetes mellitus DVT (deep venous thrombosis) (05/01/21) Rhinovirus Acute respiratory failure with hypoxia Physical debility COVID-19 in immunocompromised patient Nicotine dependence, cigarettes, uncomplicated Diabetes Arthritis Cancer COPD (chronic obstructive pulmonary disease) History of basal cell carcinoma Atherosclerosis of coronary artery of [place] heart without angina pectoris Pneumonia Non-Hodgkin lymphoma History of pilonidal cyst Allergic rhinitis 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 complications Gastritis Colon polyp Obesity Asthma Chronic bronchitis Positive colorectal cancer screening using Cologuard test RA (rheumatoid arthritis) Home Medications ?Medication ?Instructions ?Recorded ?Last Taken ?Type finasteride 5 mg tablet 5 mg PO DAILY prostate 08/1407/07/24 History tamsulosin 0.4 mg capsule 0.4 mg PO QHS prostate 08/1407/07/24 History multivitamin 1 tab PO DAILY vitamin 09/1307/07/24 History carvedilol 3.125 mg tablet 3.125 mg PO BID BP #60 tabs 06/05/23 07/07/24 Rx atorvastatin 40 mg tablet 20 mg (1/2 x 40 mg) PO QHS 0 09/18/23 07/07/24 Rx cholesterol #90 tabs budesonide 1 mg/2 mL suspension 1 mg (2 mL) inhalation Q12H 09/19/23 07/07/24 Rx for nebulization wheezing/SOB #120 mL ipratropium 0.5 mg-albuterol 3 mg 3 ml inhalation Q4H PRN PRN SOB 09/19/23 07/07/24 Rx (2.5 mg base)/3 mL nebulization &/OR WHEEZING #270 mL soln escitalopram oxalate 10 mg tablet 10 mg PO DAILY mood 90 days #90 10/29/23 07/07/24 Rx tabs mirtazapine 15 mg tablet (Remeron) 7.5 mg (1/2 x 15 mg ) PO QHS sleep 10/29/23 07/07/24 Rx #90 tabs insulin aspart U-100 100 unit/mL See Protocol subcut A CHS high 11/12/23 07/07/24 Rx (3 mL) subcutaneous pen blood glucose 1 month #15 mL needle (disp) 32 gauge 32 gauge x #100 ea 11/12/23 Unk nown Rx 07/09 (Easy Touch Hypodermic Needle) pen needle, diabetic 32 gauge x #100 ea 12/03/23 Unkno wn Rx 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 meter,continuous #1 ea 12/24/23 Unknown Rx (FreeStyle Basilio 3 Alexander) 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 sensor (FreeStyle #1 ea 12/24/23 Unknown Rx Basilio 3 Sensor device) furosemide 40 mg tablet (Lasix) 20 mg (1/2 x 40 mg) PO DAILY 03/08/24 07/07/24 Rx diuretic #60 tabs empagliflozin 10 mg tablet 10 mg PO QDAY diabetes 02/2507/07/24 History (Jardiance) ferrous sulfate 325 mg (65 mg 325 mg PO QODAY Suppleme nt 04/05/24 07/07/24 History iron) tablet (FeroSul) vancomycin 500 mg/100 mL in 500 mg IV Q12H 26 days #5, 200 mL 06/24/24 07/08/24 Rx dextrose 5 % intravenous piggyback insulin glargine-yfgn 100 unit/mL 20 unit (0.2 mL) sub cut BIDCM high 06/25/24 07/08/24 Rx (3 mL) subcutaneous pen blood glucose #15 mL cholecalciferol (vitamin D3) 50 50 mcg PO QDAY 5 07/07/24 History mcg (2,000 unit) capsule pantoprazole 40 mg tablet,delayed 40 mg PO BID 5 07/07/24 History release (Protonix) amoxicillin 875 mg-potassium 875 mg PO Q12H #10 TABLET S 07/08/24 Unknown Rx clavulanate 125 mg tablet Allergy/AdvReac Type Severity Reaction Status Date / Time No Known Allergies Allergy Verified 07/08/24 12:31 Family History Father Arthritis Bleeding disorder Hypertension Kidney disease Cancer Skin Anemia blood clots Emphysema lung Mother Colon cancer Cancer Lung Cancer Diabetes Brother Thyroid disorder Surgical History History of embolic filter insertion History of heart artery stent Status post cardiac surgery H/O cardiac catheterization Presence of IVC filter (04/2021) History of coronary artery stent placement (10/22/13) History of thymectomy Hx of lymph node excision History of excision of pilonidal cyst Social History household members: spouse Smoking Status: Current some day smoker tobacco type: cigarettes Tobacco: How many years used: 55 second hand exposure: Yes alcohol intake: current alcohol intake frequency: holidays/special occasions only substance use type: does not use caffeine: Yes Type: coffee Number of servings: 3 what type of physical activity do you participate in: none frequency: does not exercise seatbelt use: always ROS ROS ED Constitutional Constitutional ED: Reports chills and subjective; Denies fever(s) Eyes Eyes: Denies blurry vision or change in vision ENT ENT ED: Denies rhinorrhea or sore throat Cardiovascular Cardiovascular: Denies chest pain or palpitations Respiratory/Chest Respiratory/Chest: Reports cough and dyspnea Gastrointestinal Gastrointestinal: Denies nausea or vomiting Genitourinary Genitourinary ED: Denies dysuria or hematuria Musculoskeletal Musculoskeletal: Denies back pain or neck pain Integumentary Reports rash; Denies abscess Neurologic Neurologic: Denies headache(s) or weakness Allergic/Immunologic Allergic/Immunologic ED: Denies mouth swelling or urticaria EXAM Physical Exam Const Vital Signs: 07/08/24 12:29 07/08/24 12:42 07/08/24 12:44 Temperature 98.2 F 98 F Temperature Source Oral Temporal Pulse Rate 82 83 Respiratory Rate 20 H 17 Respiratory Effort Short of Breath Labored Respiratory Pattern Normal Blood Pressure 117/74 129/64 H Blood Pressure Mean 88 85 Pulse Ox 95 98 Oxygen Delivery Method Nasal Cannula Nasal Cannula Oxygen Flow Rate (L/min) 4 4 07/08/24 13:28 07/08/24 14:00 07/08/24 14:28 Temperature 97.9 F 98 F Temperature Source Temporal Temporal Pulse Rate 77 79 78 Respiratory Rate 14 17 72 H Respiratory Effort Respiratory Pattern Blood Pressure 101/68 140/65 H 138/93 H Blood Pressure Mean 79 90 108 Pulse Ox 100 97 99 Oxygen Delivery Method Nasal Cannula Nasal Cannula Nasal Cannula Oxygen Flow Rate (L/min) 4 4 4 07/08/24 15:00 Temperature 98 F Temperature Source Temporal Pulse Rate 78 Respiratory Rate 16 Respiratory Effort Respiratory Pattern Blood Pressure 128/82 H Blood Pressure Mean 97 Pulse Ox 97 Oxygen Delivery Method Nasal Cannula Oxygen Flow Rate (L/min) 4 Positive well nourished and well developed General Appearance ED: well developed and NAD HEENT Reports moist mucous membranes Neck supple and no JVD Resp normal respiratory effort and clear to auscultation bilaterally Cardio regular rate and regular rhythm Rhythm: abnormal rhythm ectopic beats GI non-tender and non-distended Palpation: soft Neuro oriented x3, CN's II-XII intact bilaterally and no sensory deficits noted Motor Exam: strength 5/5 throughout Psych mental status grossly normal MDM MDM MDM Narrative Medical decision making narrative: Differential diagnosis includes sepsis, pneumonia, bronchitis, anemia, electrolyte abnormality, cardiac dysrhythmia, cardiac ischemia, and coagulopathy. EKG will be obtained to assess for cardiac dysrhythmia and cardiac ischemia. Chest x-ray will be obtained to assess for pneumonia and bronchitis. CBC will be obtained to assess for leukocytosis and anemia. Comprehensive metabolic profile will be obtained to assess for hepatic function,renal function, and electrolyte abnormality. Urinalysis will be obtained to assess for urinary tract infection and hematuria. PT was INR PTT will be obtained to assess for coagulopathy. Serum lactate will be obtained to assess for sepsis. History & Record Review Additional record(s) reviewed:: Prior outpatient record and Prior labs Lab Data Attestation: I reviewed the patient's lab results. Lab results narrative: CBC was reviewed. Hemoglobin was low at 7.2 and hematocrit was 23.2. The remainder was within normal limits. Comprehensive metabolic profile was reviewed. BUN was 39 and creatinine was 1.28. Glucose was slightly elevated at164. The remainder was within normal limits. Urinalysis was reviewed. Leukocyte Estrace was 500 with 25-50 white blood cells and 1+ bacteria. Labs: Laboratory Results - last 24 hr 07/08/24 07/08/24 13:25 14:13 WBC 8.8 RBC 2.43 L Hgb 7.2 L Hct 23.2 L MCV 95.5 H MCH 29.6 MCHC 31.0 L RDW Std Deviation 70.7 H RDW Coeff of [place] 20.1 H Plt Count 162 MPV 11.9 Immature Gran % (Auto) 1.500 H Neut % (Auto) 71.7 H Lymph % (Auto) 15.2 L [place] % (Auto) 9.4 Eos % (Auto) 2.0 Baso % (Auto) 0.2 Absolute Neuts (auto) 6.3 Absolute Lymphs (auto) 1.34 Nucleated RBC % 0.2 PT 14.2 INR 1.1 APTT 31.3 Sodium 144 Potassium 3.8 Chloride 106 Carbon Dioxide 27.6 Anion Gap 11 BUN 39 H Creatinine 1.28 H Est GFR (MDRD) Non-Af 59 L BUN/Creatinine Ratio 30.5 H Glucose 164 H Lactic Acid 1.6 Calcium 8.5 Total Bilirubin 0.35 AST 23 ALT 38 Alkaline Phosphatase 122 Total Protein 6.1 Albumin 3.4 Globulin 2.7 Albumin/Globulin Ratio 1.3 Urine Color Yellow Urine Clarity Sl. Cloudy Urine pH 6.0 Ur Specific [place] 1.015 Urine Protein 30 H Urine Glucose (UA) 1000 H Urine Ketones Negative Urine Occult Blood 25 H Urine Nitrite Negative Urine Bilirubin Negative Urine Urobilinogen Normal Ur Leukocyte Esterase 500 H Urine RBC 0-5 SEEN Urine WBC 25-50 SEEN Ur Squamous Epith Cells 0-5 SEEN Urine Bacteria 1+ Urine Mucus 0 SEEN Urine Yeast 2+ Radiography Chest X-Ray - ED: 2 View, Read by ED Physician, Read by Radiologist, Right Infiltrate and Right Effusion Diagnostic Testing: Clinical Impression(s) from Imaging Studies Chest X-Ray 07/08/24 14:08 IMPRESSION: Small right pleural effusion with the right basilar atelectasis and/or infiltrate. There has been progression as compared to prior study. Reading Location: [facility] and lateral chest x-ray was obtained. There are 2 views. On my independent interpretation, lung luu showed a right pleural effusion with right basilar atelectasis and/or infiltrate. There is normal cardiac silhouette. Bony thoraxis normal. Radiologist also interpreted the x-ray and agrees. EKG Initial EKG: Attestation: I personally reviewed and interpreted this EKG as follows: Interpretation: Sinus Rhythm (With frequent PACs) and Non-Specific ST Changes Comments: EKG was obtained. On my independent interpretation, it shows a normal sinus rhythm with frequent PACs. GA interval was approximately 160 ms. QRS interval was normal at 102 ms. QTc interval was 444 ms. [place] was normal. There are nonspecific ST-T wave changes noted. Prior EKG tracings: available for review Prior: Unchanged (06/22/2024) Treatment and Re-Evaluation :: Patient was advised of this findings. Patient was given a dose of Rocephin here. Case was discussed with Dr. Villafuerte. He feels the patient can be discharged home and treated as an outpatient. He recommended continuing the vancomycin for the MRSA infection. He recommended starting the patient on Augmentin for the urinary tract infection. Patient and family are agreeable with this. Discharge Plan Triage Chief Complaint: General Illness ED Provider: Marco Hoffman Dx/Rx/DC Orders Clinical Impression: Urinary tract infection, Type 2 diabetes mellitus, History of COPD Instructions: ED Bladder Infection, Male (Adult) Prescriptions: New amoxicillin-pot clavulanate 875-125 mg tablet 875 mg PO Q12H Qty: 10 0RF No Action multivitamin Tablet 1 tab PO DAILY tamsulosin 0.4 mg capsule 0.4 mg PO QHS finasteride 5 mg tablet 5 mg PO DAILY ipratropium-albuterol 0.5 mg-3 mg(2.5 mg base)/3 mL solution for nebulization 3 ml inhalation Q4H PRN PRN (Reason: SOB &/OR WHEEZING) Qty: 270 11RF budesonide 1 mg/2 mL suspension for nebulization 1 mg inhalation Q12H Qty: 120 11RF (DME) pen needle, diabetic 32 gauge x 5/32 needle See Rx Instructions .ROUTE .MEDSUPPLY Qty: 100 5RF Rx Instructions: As directed Jardiance 10 mg tablet 10 mg PO QDAY ferrous sulfate [FeroSul] 325 mg (65 mg iron) Tablet 325 mg PO QODAY (DME) Easy Touch Hypodermic Needle 32 gauge x 5/16 needle See Rx Instructions .Route Qty: 100 0RF Rx Instructions: As directed insulin aspart U-100 100 unit/mL (3 mL) insulin pen See Protocol subcut ACHS 30 Days Qty: 15 0RF Protocol: 3. Sliding Scale Insulin Med Dosing Condition: 150-189 mg/dl = 1 unit Condition: 190-229 mg/dl = 2 units Condition: 230-269 mg/dl = 3 units Condition: 270-309 mg/dl = 4 units Condition: 310-349 mg/dl = 5 units Condition: 350-399 mg/dl = 6 units Condition: 400-449 mg/dl = 7 units Condition: Greater than 449 call physician Protocol Text: Suggested for: - Patients on Total Daily Insulin Dose of 37-55 units - Obese, infected, or steroid patients MEDIUM DOSING ALGORITHIM vancomycin in dextrose 5 % 500 mg/100 mL Piggyback 500 mg IV Q12H 26 Days Qty: 5200 0RF Rx Instructions: stop date 07/20/24. Dx: MRSA bacteremia. Weekly bmp, cbc, and vanc trough. Fax to [phone]. Routine picc care per protocol. insulin glargine-yfgn 100 unit/mL (3 mL) insulin pen 20 unit subcut BIDCM Qty: 15 1RF carvedilol 3.125 mg tablet 3.125 mg PO BID Qty: 60 11RF Rx Instructions: must administer with a meal/food atorvastatin 40 mg tablet 20 mg PO QHS Qty: 90 3RF escitalopram oxalate 10 mg tablet 10 mg PO DAILY 90 Days Qty: 90 3RF mirtazapine [Remeron] 15 mg tablet 7.5 mg PO QHS Qty: 90 3RF (DME) FreeStyle Basilio 3 Sensor Device See Rx Instructions .Route Qty: 1 5RF Rx Instructions: As directed (DME) FreeStyle Basilio 3 Alexander Misc See Rx Instructions .Route Qty: 1 0RF Rx Instructions: As directed furosemide [Lasix] 40 mg tablet 20 mg PO DAILY Qty: 60 1RF pantoprazole [Protonix] 40 mg tablet,delayed release (DR/EC) 40 mg PO BID cholecalciferol (vitamin D3) 50 mcg (2,000 unit) capsule 50 mcg PO QDAY Primary Care Provider: Donna Will Referrals: Donna Will MD [Primary Care Provider] - 5-7 Days Wilberto Villafuerte MD [Med Staff - Active Staff] - 5-7 Days Print Language: Macedonian Disposition Disposition: Home, Self Care What to do if you have Problems For any increased pain, shortness of breath, bleeding, nausea or vomiting, chestpain, or any unexpected problems, contact your Primary Care Provider. Call [facility] ([phone]) or report to the closest Emergency Room. Call 911 if necessary. 07/08/24 1710 <Electronically signed by Marco Hoffman DO> Cosigner Signature (if applicable): CC: Dr. Donna Will MD ~ Signed [facility] Work Phone: 1(502) 292-522202-10-2025 Evaluation note* Diagnosis Onset Date Resolution Status Admit Date Acute anemia acute March 8:20pm Anemia acute April 05, 2024 8:20pm Atrial fibrillation, controlled acute April 05 025 8:20pm Guaiac positive stools acute Fe bruary 2024 8:20pm Hypoxia acute April 05, 2024 8:20pm Nausea & vomiting acute Februar y 2024 8:20pm Respiratory insufficiency acute April 05, 2024 8:20pm Right lower lobe pneumonia acute April 05, 2024 8:20pm Chronic hypoxemic respirator y failure chronic April 05 025 8:20pm COPD (chronic obstructive pulmonary disease) chronic March 8:20pm COPD with exacerbation chronic 2024 8:20pm GI bleed April, chronic March 9:11am Iron deficiency anemia chronic Fe bruary 2024 9:11am Iron deficiency anemia chronic Ma [facility] 2024 1:14pm 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 April 27, 2024 1:14pm Bronchiectasis acute April 2:14pm Chronic hypoxemic respirator y failure chronic May 18, 2024 2:14pm COPD (chronic obstructive pulmonary disease) chronic May 18, 025 2:14pm Nicotine dependence, cigarettes, in remission chronic April 252024 2:14pm MRSA bacteremia acute May 6:06pm Acute alteration in mental status resolved June 20, 2024 6:06pm Acute and chronic respirator y failure with hypoxia resolved June 20, 2024 6:06pm Sepsis resolved June 20 6:06pm Claudication, intermittent removed June 20, 2024 6:06pm PAD (peripheral artery disease) removed June 20, 2024 6:06pm Iron deficiency anemia chronic Ma y 2024 1:32pm 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 June 252024 1:32pm [facility] Work Phone: 1(667) 132-227901-21-2025 Evaluation note* Diagnosis Onset Date Resolution Status Admit Date HFrEF (heart failure with reduced ejection fraction) acute 2024 11:35am Essential hypertension chronic 2024 11:35am History of coronary artery stent placement October 22, 2013 chronic March 16, 2024 11:35am Hyperlipidemia chronic March 162024 11:35am Iron deficiency anemia chronic 2024 11:35am Acute anemia acute March 8:20pm Anemia acute April 05, 2024 8:20pm Atrial fibrillation, controlled acute April 05 025 8:20pm Guaiac positive stools acute 2024 8:20pm Hypoxia acute April 05, 2024 8:20pm Nausea & vomiting acute uar 2024 8:20pm Respiratory insufficiency acute April 05, 2024 8:20pm Right lower lobe pneumonia acute April 05, 2024 8:20pm Chronic hypoxemic respiratory failure chronic March 8:20pm COPD (chronic obstructive pulmonary disease) chronic March 8:20pm COPD with exacerbation chronic 2024 8:20pm GI bleed April, chronic March 9:11am Iron deficiency anemia chronic 2024 9:11am Iron deficiency anemia chronic [facility] 2024 1:14pm 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 April 27, 2024 1:14pm Bronchiectasis acute April 2:14pm Chronic hypoxemic respiratory failure chronic May 18, 2024 2:14pm COPD (chronic obstructive pulmonary disease) chronic May 18 2:14pm Nicotine dependence, cigarettes, in remission chronic April 252024 2:14pm MRSA bacteremia acute May 6:06pm Acute alteration in mental status resolved June 20, 2024 6:06pm Acute and chronic respiratory failure with hypoxia resolved June 20, 2024 6:06pm Sepsis resolved June 20 6:06pm Claudication, intermittent removed June 20, 2024 6:06pm PAD (peripheral artery disease) removed June 20, 2024 6:06pm [facility] Work Phone: 1(373) 211-810701-10-2025 Evaluation note* Diagnosis Onset Date Resolution Status Admit Date Bronchiectasis acute March 052024 12:53pm Chronic hypoxemic respiratory failure chronic February 12:53pm COPD (chronic obstructive pulmonary disease) chronic March 05, 2024 12:53pm Nicotine dependence, cigarettes, in remission chronic March 05, 2024 12:53pm HFrEF (heart failure with reduced ejection fraction) acute 2024 11:35am Essential hypertension chronic 2024 11:35am History of coronary artery stent placement October 22, 2013March 16, 2024 11:35am Hyperlipidemia chronic March 162024 11:35am Iron deficiency anemia chronic 2024 11:35am Acute anemia acute March 8:20pm Anemia acute April 05, 2024 8:20pm Atrial fibrillation, controlled acute April 05, 025 8:20pm Guaiac positive stools acute 2024 8:20pm Hypoxia acute April 05, 2024 8:20pm Nausea & vomiting acute ua2024 8:20pm Respiratory insufficiency acute April 05, 2024 8:20pm Right lower lobe pneumonia acute April 05, 2024 8:20pm Chronic hypoxemic respiratory failure chronic March 8:20pm COPD (chronic obstructive pulmonary disease) chronic March 8:20pm COPD with exacerbation chronic 2024 8:20pm GI bleed April, chronic March 9:11am Iron deficiency anemia chronic 2024 9:11am Iron deficiency anemia chronic [facility] 2024 1:14pm 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 April 27, 2024 1:14pm Bronchiectasis acute April 2:14pm Chronic hypoxemic respiratory failure chronic May 18, 2024 2:14pm COPD (chronic obstructive pulmonary disease) chronic May 18, 2:14pm Nicotine dependence, cigarettes, in remission chronic April 252024 2:14pm Acute alteration in mental status acute June 20, 2024 6:06pm Acute and chronic respiratory failure with hypoxia acute June 20, 2024 6:06pm MRSA bacteremia acute May 6:06pm Sepsis acute June 20 6:06pm Claudication, intermittent removed June 20, 2024 6:06pm PAD (peripheral artery disease) removed June 20, 2024 6:[facility]pm [facility] [facility] Work Phone: 1(640) 549-468104-11-2024 Procedure [facility] 03-21-2023 Telephone encounter Note* Telephone Encounter - Adri Perez RN - 03/21/2023 8:07 PM EST S: [facility]. B: Pt was discharged today from [facility]. A: [facility]'s insulin that was prescribed at discharge. wants to know why, and also what he can take instead. R: Advised that she has reached the [facility], and to please call the other number on her card regarding prescriptions. Caller ended call. Reason for Disposition [1] Follow-up call to recent contact AND [2] information only call, no triage required Protocols used: Information Only Call - No [id number] [facility] [id number] Miscellaneous Notes* Telephone Encounter - Adri Perez RN - 03/21/2023 8:07 PM EST S: Pt's calling [facility] Nurse Advice Line regarding prescription problem. B: Pt was discharged today from [facility]. A: states [facility] insurance will not cover pt's insulin that was prescribed at discharge. wants to know why, and also what he can take instead. R: Advised that she has reached the [facility] Nurse Advice Line, and to please call the other number on her card regarding prescriptions. Caller ended call. Reason for Disposition [1] Follow-up call to recent contact AND [2] information only call, no triage required Protocols used: Information Only Call - No [id number] documented in this encounterSParkview Health Montpelier [id number] History and physical note Author Nadira Ricks [facility] March 16, 2023 4:47pm Note Date/Time March 16, 2023 3 :13pm [facility] Medical Records Department [address] [place] [id number] H&P Exam - Hospitalist 03/16/23 1449 MR#: [id number] Acct: [id number] Name: JAYDON ALONZO Rep #:[id number] : 1950 72 From: Nadira Ricks DO PCP: Dr. Donna Will MD Status:ADM IN Location: ICU CVICU20 1-1 HPI - General General Date of Admission: 03/16/23 Date of Service: 03/16/23 Chief Complaint: Fall/Fatigue/Hypotension/Hyperglycemia HPI Narrative JAYDON ALONZO, is a 72 M who presented to the emergency department at [facility] on 03/16/2023 after a fall at home. Evidently, he was going to the bathroom and fell backwards and hit his head. He lives at home with his and granddaughter. After the fall EMS was called as the patient is chronically anticoagulated on apixaban. He did have some bleeding from his noseat that time and indicates he is felt tired today but denied any fever, chills, chest pain, shortness of breath, cough or numbness/tingling/focal weakness. He has chronic lower extremity edema that is unchanged from his baseline. He does indicate he has have been having black tarry stools for some time but is unclearhow long he has been having these. His blood sugars have been markedly elevatedat home and upon EMS arrival his blood sugar was in the 600. He is on prednisone for his lungs. He was concerned that all of his symptoms were related to his blood sugar. He did have a recent admission here from 03/03/2023 through 03/06/2023 for anemia and hypoxemia. He was treated for acute exacerbation of COPD and diuresed as there was felt to be a component of acute on chronic HFrEF. He was noted to have a hemoglobin of 6.7 on presentation and received initially 1 unit of packed red blood cells he remained short of breath so another unit was given prior to discharge. Hemoglobin at the time of discharge was 10. Hemoccult was done at that time and was found to be positive. The patient does have previous history of GI bleed and also follows as an outpatient with hematology and receives iron infusions. 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 Capsule endoscopy was also done at the end of 2021 in December and was found to be negative. He has had previous issues with hematuria and follows with urology but is not currently having any hematuria. He had a recurrent fecal occult blood that was positive in July 2022 and had a capsule endoscopy atthat time which showed some erosions and was treated with packed red blood cellsand received Venofer infusions. The patient is on chronic oxygen and wears 4 L at baseline. On presentation, his temperature was 96.8, heart rate 69, blood pressures have been anywhere from 85-105 systolic over 47-65 diastolic, respiratory rate is 13 and oxygen saturations are 98 to 100% on 4 L nasal cannula. His CBC shows a leukocytosis however he is taking prednisone. His white count is 21,000 and he has a marked left shift with a 82.4% neutrophilia. His hemoglobin is 5.0 and platelet count is normal. Coags are elevated mildly as expected on Eliquis. VBG shows no signs of acidosis. His chemistry panel shows a sodium of 134 with a BUN of 105 and a serum creatinine of 2.64 (baseline BUN has been in the 40-50 range/serum creatinine baseline has been running between 1.5 and 1.8). His lactic acid was 4.5. His glucose was 817. Liver functions are unremarkable. Troponin is 435. With his fall, extensive imaging was performed. Chest x-ray was unremarkable for any acute findings however he does appear to have a chronicright-sided pleural effusion. CT of the brain showed chronic involutional changes but no acute findings. CT of the cervical spine was unremarkable for anyacute findings. EKG showed rate controlled atrial fibrillation at a rate of 69 bpm with normal axis, normal intervals and no ST-T wave changes concerning for acute ischemia. Given his lactic acidosis and white count elevation cultures were done. With regards to his anemia he was started on an octreotide drip and a Protonix bolus 80mg x 1 dose. 2 units of packed red blood cells have been ordered to be transfused and he will be admitted to the ICU for further care. [facility] Medical History Acute respiratory failure with hypoxia Allergic rhinitis Arthritis Asthma Atherosclerosis of coronary artery of [place] heart without angina pectoris Bleeding tendency Cancer Chronic bronchitis Colon polyp COPD (chronic obstructive pulmonary disease) COVID-19 in immunocompromised patient Diabetes DVT (deep venous thrombosis) (05/01/21) Essential hypertension Former smoker FTT (failure to thrive) in adult Gastritis High cholesterol History of basal cell carcinoma History of pilonidal cyst History of pulmonary embolus (PE) (04/30/21) History of stress test HTN (hypertension) Nicotine dependence, cigarettes, uncomplicated Non-Hodgkin lymphoma Obesity On home oxygen therapy Physical debility Pneumonia Positive colorectal cancer screening using Cologuard test RA (rheumatoid arthritis) Rhinovirus Tobacco abuse Type 2 diabetes mellitus Ulcer 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 complications Home Medications nitroglycerin 0.4 mg sublingual tablet (Nitrostat) 0.4 mg sublingual Q5M PRN chest pain #30 tabs 09/25/20 [Rx Last Taken Unknown] atorvastatin 40 mg tablet 20 mg PO QHS cholesterol 10/09/21 [History Last Taken 02/27/23] aspirin 81 mg tablet,delayed release 81 mg PO DAILY heart health 12/31/21 [History Last Taken 02/27/23] finasteride 5 mg tablet 5 mg PO DAILY prostate 08/14/22 [History Last Taken 02/27/23] tamsulosin 0.4 mg capsule 0.4 mg PO DAILY prostate 08/14/22 [History Last Taken 02/27/23] ferrous sulfate 325 mg (65 mg iron) tablet 325 mg PO DAILY iron supplement 09/13/22 [History Last Taken 02/27/23] multivitamin 1 tab PO DAILY vitamin 09/13/22 [History Last Taken 02/27/23] pantoprazole 40 mg tablet,delayed release 40 mg PO BID reflux #180 tabs 09/23/22[Rx Last Taken 02/27/23] escitalopram oxalate 10 mg tablet 10 mg PO DAILY mood 90 days #90 tabs 10/14/22 [Rx Last Taken 02/27/23] mirtazapine 15 mg tablet (Remeron) 7.5 mg (1/2 x 15 mg) PO QHS sleep #90 tabs 11/04/22 [Rx Last Taken 02/27/23] budesonide 1 mg/2 mL suspension for nebulization 1 mg inhalation Q12H lungs 11/15/22 [History Last Taken 02/27/23] albuterol sulfate 2.5 mg/3 mL (0.083 %) solution for nebulization 2.5 mg (3 mL) inhalation Q4H PRN Sob &/Or Wheezing #540 mL 01/13/23 [Rx Last Taken 02/27/23] ipratropium bromide 0.02 % solution for inhalation 2.5 ml inhalation Q6H PRN shortness of breath or wheezing #150 mL 01/13/23 [Rx Last Taken 02/27/23] azithromycin 500 mg tablet 500 mg PO DAILY 3 days #3 tabs 03/02/23 [Rx Last Taken Unknown] guaifenesin 1,200 mg tablet, extended release 12 hr (Mucus Relief ER) 1,200 mg PO BID 10 days #20 tabs 03/02/23 [Rx Last Taken Unknown] prednisone 20 mg tablet 20 mg PO BID #10 tabs 03/02/23 [Rx Last Taken Unknown] furosemide 40 mg tablet (Lasix) 40 mg PO DAILY #30 tabs 03/04/23 [Rx Last Taken Unknown] apixaban 5 mg tablet (Eliquis) 5 mg PO BID 30 days #60 tabs 03/06/23 [Rx Last Taken Unknown] metoprolol tartrate 25 mg tablet 12.5 mg (1/2 x 25 mg) PO BID 60 days #60 tabs 03/06/23 [Rx Last Taken Unknown] menthol 0.44 %-zinc oxide 20.6 % topical ointment (Calmoseptine) 1 applic topical 4-6XD PRN skin irritation #113 grams 03/07/23 [Rx Last Taken Unknown] Allergy/AdvReac Type Severity Reaction Status Date / Time levofloxacin [From Levaquin] AdvReac Intermediate diarrhea, Verified 03/16/23 13:47 dizziness, GI upset, weakness Family History Father Arthritis Bleeding disorder Hypertension Kidney disease Cancer Skin Anemia blood clots Emphysema lung Mother Colon cancer Cancer Lung Cancer Diabetes Brother Thyroid disorder Surgical History H/O cardiac catheterization History of coronary artery stent placement (10/22/13) History of embolic filter insertion History of excision of pilonidal cyst History of heart artery stent History of thymectomy Hx of lymph node excision Presence of IVC filter (04/2021) Status post cardiac surgery Social History household members: spouse Smoking Status: Former smoker Tobacco: How many years used: 55 second hand exposure: Yes alcohol intake: current alcohol intake frequency: holidays/special occasions only substance use type: does not use caffeine: Yes Type: coffee Number of servings: 3 what type of physical activity do you participate in: none frequency: does not exercise seatbelt use: always ROS Constitutional Constitutional: Reports fatigue, malaise and weakness; Denies anorexia, change in weight, chills, fever(s), night sweats or other Eyes Eyes: Denies blurry vision, change in eye color, change in vision, discharge from eye(s), double vision, erythema, eye pain, loss of vision or other ENT HEENT: Denies abnormal hearing, dysphagia, ear pain, epistaxis, headache(s), hearing loss, nasal congestion, nasal discharge, post nasal drip, sinus pressure, sore throat or other Cardiovascular Cardiovascular: Reports edema and lightheadedness; Denies chest pain, claudication, dyspnea on exertion, orthopnea, palpitations, paroxysmal nocturnaldyspnea, rapid heart rate, syncope or other Respiratory/Chest Respiratory/Chest: Reports dyspnea and shortness of breath with exertion; Deniescough, excessive phlegm production, hemoptysis, productive cough, shortness of breath at rest, wheezing or other Gastrointestinal Gastrointestinal: Reports melena; Denies abdominal pain, coffee ground emesis, constipation, diarrhea, dyspepsia, hematemesis, hematochezia, loose stools, nausea, vomiting or other Genitourinary Genitourinary: Denies burning urination, difficulty urinating, dysuria, hematuria, nocturia, urinary frequency, urinary hesitancy, urinary incontinence,urinary urgency or other Musculoskeletal Musculoskeletal: Denies arthralgias, back pain, joint pain, joint stiffness, joint swelling, myalgias, neck pain or other Neurologic Neurologic: Reports abnormal gait and other Details: Fall Psychiatric Psychiatric: Reports depression; Denies anxiety, homicidal ideation, suicidal ideation or other Endocrine Endocrinology: Reports polydipsia, polyuria and other Details: Elevated blood sugars ; Denies change in body appearance, cold intolerance, excessive sweating or heat intolerance Hematologic/Lymphatic Hematologic/Lymphatic: Reports anemia, easy bleeding and easy bruising Allergic/Immunologic Allergic/Immunologic: Denies rhinitis, hives, eczemia, asthma or other Vital Signs Vital Signs Vital Signs: 03/16/23 13:48 03/16/23 13:59 03/16/23 14:40 Temperature 96.8 F L Temperature Source Temporal Pulse Rate 69 71 Respiratory Rate 13 18 Respiratory Effort Normal Non-Labored Respiratory Pattern Normal Blood Pressure 105/47 L 85/55 L Blood Pressure Mean 66 65 Pulse Ox 100 100 Oxygen Delivery Method Nasal Cannula Nasal Cannula Oxygen Flow Rate (L/min) 4 4 03/16/23 14:40 03/16/23 14:20 03/16/23 14:00 Temperature Temperature Source Pulse Rate 76 68 Respiratory Rate 20 H 16 Respiratory Effort Respiratory Pattern Blood Pressure 85/65 L 99/49 L Blood Pressure Mean 71 65 Pulse Ox 100 98 100 Oxygen Delivery Method Nasal Cannula Nasal Cannula Nasal Cannula Oxygen Flow Rate (L/min) 4 4 2 Weight Weight: 98 kg Body Mass Index (BMI) 30.2 Physical Exam Const alert, oriented x3 and no apparent distress; Negative for average body habitus, healthy appearing or well nourished Constitutional Narrative: Obese, chronically ill-appearing, older, white male, lying in bed, daughter at bedside, patient appears comfortable on 4 L nasal cannula which is his baseline,nontoxic but ill-appearing HEENT normocephalic and head/scalp atraumatic HEENT Narrative: Mild to moderate hearing loss, mucous membranes are dry, no thrush, Mallampati 2-3 Eyes PERRL and EOMs intact bilaterally Eyes Narrative: Severe conjunctival pallor bilaterally, no scleral icterus Neck no lymphadenopathy and supple Neck Narrative: Trachea midline, no thyroid enlargement Resp normal respiratory effort, no retractions and no use of accessory muscles Resp Narrative: Diffusely diminished with decreased breath sounds at right base Auscultation: Negative for rales, rhonchi or wheezes Cardio regular rate, S1 normal heart sound, S2 normal heart sound, no rub, no gallops and no clicks; Negative for regular rhythm or no murmurs Cardio Narrative: Irregularly irregular rhythm, 2 out of 6 systolic murmur GI normal to inspection, nondistended, normoactive bowel sounds, soft to palpation and non-tender Extremity Extremity Narrative: 1-2+ bilateral lower extremity pitting edema which is chronic, no cyanosis or clubbing Skin no rashes or lesions noted, no wounds, no jaundice, no petechiae and no mottling Skin Narrative: Skin is extremely pale, palmar creases are pale, no significant wounds noted Neuro oriented x3, moves all extremities and no focal motor deficits Neuro Narrative: Significant generalized weakness noted with no focal deficits Speech: speech normal Psych Psych Narrative: Affect is flattened mood seems depressed Results Lab / Micro Data 03/16/23 14:00 03/16/23 14:00 Labs: Laboratory Results - last 24 hr 03/16/23 13:58: POC Glucose > 500 H* 03/16/23 14:00: WBC 21.0 H, RBC 1.66 L, Hgb 5.0 L*, Hct 16.6 L, MCV 100.0 H, MCH30.1, MCHC 30.1 L, RDW Std Deviation 63.7 H, RDW Coeff of Rafael 20.1 H, Plt Count 256, MPV 12.3 H, Immature Gran % (Auto) 4.100 H, Neut % (Auto) 82.4 H, Lymph % (Auto) 7.3 L, [place] % (Auto) 5.5, Eos % (Auto) 0.5, Baso % (Auto) 0.2, Absolute Neuts (auto) 17.3 H, Absolute Lymphs (auto) 1.54, Nucleated RBC % 2.1, Differential Comment SCANNED, Diff Path Review May foll, Hypochromasia 1+, Anisocytosis 2+, Microcytosis 1+, Macrocytosis 1+, PT 18.0 H, INR 1.5, APTT 24.5, Acetone Level NEGATIVE ABG Data ABG results: ABG 03/16/23 14:18 Specimen Type LEONEL Sample Site Not entered O2 % 4.0 VBG pH 7.39 VBG pO2 35 VBG HCO3 30 H VBG Total CO2 31 VBG O2 Sat (Calc) 65 VBG Base Excess 5 H POC Mix VBG pCO2 Pt Tmp 49.5 O2 Delivery Device Cannula Rhythm Strip Rhythm Strip: A-fib Rate: 69 Ectopy: None Imagaing Radiology Impression Brain CT 03/16/23 14:05 IMPRESSION: There are no acute findings. Chronic involutional changes of the brain. Electronically Signed: Moo Yanes MD at 14:43 EST , Cervical Spine CT 03/16/23 14:05 IMPRESSION: (NOT LISTED IN ORDER OF SIGNIFICANCE) There are no acute findings. Electronically Signed: Moo Yanes MD at 14:46 EST , Assessment & Plan Assessment/Plan (1) Acute anemia: (2) Hypotension: (3) Fall: (4) Fatigue: (5) Hyperglycemia: (6) Pleural effusion on right: (7) LUIS (acute kidney injury): (8) Hemorrhagic shock: (9) Acute lactic acidosis: (10) Leukocytosis: (11) Elevated troponin I level: PLAN: Plan Acute hemorrhagic shock -This is the cause of his hypotension -Hemoglobin is 5.0 -Will transfuse 3 units packed red blood cells -IV fluids running until packed red blood cells but can be given -If pressure does not improve may need pressors -May need central line depending on IV access -Hold home medications that can drop blood pressure Acute on chronic anemia -Baseline hemoglobin appears to run between 7.0 and 8.0 -Recent admission 03/03/2023 through 03/06/2023 had 2 units of packed red blood cells and hemoglobin was 10.0 on discharge -Hemoglobin down to 5.0 today -Transfused 3 units packed red blood cells -Monitor for Lasix needed between due to history of HFrEF -Cycle hemoglobin every 6 hours x 3 -Repeat CBC in a.m. -Transfuse for precipitous drop or hemoglobin less than 7 -Patient is on iron at baseline and follows as an outpatient with hematology Acute GI bleed -Patient with grossly bloody stools -Cycle hemoglobin as noted above -Transfuse 3 units packed red blood cells -Octreotide drip -Protonix IV push 40 mg twice daily -Hold home Eliquis -Hold home aspirin -GI consultation is pending-initiated by emergency department and case was discussed with Friend by Dr. Marie Lactic acidosis -Sec to the above -Should improve with blood transfusion -Cycle per protocol -No metabolic acidosis noted on VBG but lactate is up at 4.5 Troponin elevation -Troponin elevation at greater than 400 on admission -Suspect type II NSTEMI due to demand ischemia with severe anemia -Check echocardiogram for any signs of wall motion -Patient is not a cardiac catheterization candidate at this point due to his GI bleeding -Cycle cardiac enzymes LUIS on CKD stage IIIb -Baseline serum creatinine is between 1.5 and 1.8 -Current serum creatinine is 2.64 -Suspect related to hypotension and acute blood loss -Hold diuretics -Blood transfusion as ordered -Continue IV fluids until blood can be initiated -Hold home Flomax -Place Ball -No further workup at this time however if creatinine does not improve with transfusion may need to pursue further workup and possible nephrology consultation DM-2 with hyperglycemia -Patient severely hyperglycemic on admission -Obtaining a hemoglobin A1c would be futile due to his severe anemia and transfusion being initiated -Blood sugars have been up and patient has been on steroids lately -Will give NPH 15 units x 1 dose -Start Lantus at nightly 15 units -High-dose SSI every 6 hours and hold off scheduled log at this time to see whatblood sugars and see what blood sugars run with basal insulin and sliding scale -Clear liquid diet for tonight and n.p.o. after midnight -When oral diet can be reinitiated would recommend cardiac/carb control at 1800 kcal Right pleural effusion -Appears to be quite large on chest x-ray -CT chest pending -Will obtain thoracentesis if patient agreeable and effusion seems sizable when compared to previous imaging -If Thora needed will send studies on fluid Leukocytosis -Suspect reactive from steroid use and acute GI bleed -Patient with no signs of infection currently -Continue to monitor -Cultures were obtained drawn on admission but hold off on empiric antibiotics for now as infectious etiology is low suspicion Debility/fall/generalized weakness/fatigue -Acute issues likely related to acute anemia and hypotension -PT/OT consultation -Social work/case management consultation for assistance with discharge planning -Imaging done for fall shows no fracture or acute findings on presentation Chronic hypoxic respiratory failure secondary to COPD -Patient's baseline oxygen is 4 L nasal cannula -Remains on 4 L nasal cannula with good oxygen saturations -Chest x-ray is stable -Continue as needed albuterol -Continued inhaled budesonide -Hold Lasix for now -Continue home guaifenesin -Continue home ipratropium as needed History of GI bleed/GERD -Hold home oral Protonix -IV Protonix -Previous scope in 2021 showed angiodysplastic lesions in the stomach and duodenum -Patient also has previously had a positive capsule endoscopy CAD/HTN/HPL -Patient with previous PCI to LAD and RCA as well as mid circumflex lesions remotely -Hold home antihypertensives due to hypotension on presentation -Hold home aspirin due to GI bleed -Okay to continue atorvastatin BPH with obstruction -Continue Proscar -Hold Flomax due to this potentially causing blood pressure drops to be alpha blockade History of VTE/PE -Patient had been off anticoagulation but this was restarted after last discharge -Patient does have an IVC filter that was placed in 2001 -CALCIMINER was diagnosed when patient had COVID-19 infection Atrial fibrillation -Was diagnosed as new during last hospitalization -Currently in rate controlled atrial fibrillation -Hold home metoprolol for now due to severe hypotension on presentation -Will restart if blood pressure improves with blood -Discontinue apixaban that was started -patient has now proven that he cannot be on anticoagulation and will discontinue Eliquis indefinitely -Monitor on telemetry History of Hodgkin lymphoma status post ABVD and radiation 2000 -Remote -No current issues -Follows as outpatient with oncology History of rheumatoid arthritis -Patient was previously treated with Biologics however is not currently on any -Continue outpatient follow-up Depression -Continue home mirtazapine -Continue home Lexapro DVT prophylaxis -SCDs -Chemoprophylaxis contraindicated due to GI bleeding and severe anemia on presentation CODE STATUS -Full code as per discussion prior to admission with patient and family however son is going to arrive soon and they will have further discussion so CODE STATUScould potentially change within the next 24 hours. Critical care time greater than 35 minutes excluding procedures Charges/Coding Procedures Hospitalists Procedures: [id number] Critical Care 1st Hr 03/16/23 1647 <Electronically signed by Nadira Ricks DO> Cosigner Signature (if applicable): CC: Dr. Nadira Ricks DO; Dr. Donna Will MD~ Signed [facility] Work Phone: 1(659) 391-470001-21-2024 Discharge summary Author [facility] March 16, 2023 5:41pm Note Date/Time March 16, 2023 2 :34pm [facility] Medical Records Department [address] [place] [address] Emergency Department Summary 03/16/23 MR#: [id number] Acct: [id number] Name: JAYDON ALONZO Rep #:[id number] : 1950 72 From: Eva Lilly PCP: Dr. Donna Will MD Status:ADM IN Location: ICU CVICU20 1-1 HPI History of Present Illness Chief Complaint: General Illness Informant: patient and EMS Narrative Narrative: Patient is a 72-year-old male with history of anemia, anticoagulation with Eliquis, chronic hypoxic respiratory failure on 4 L of oxygen, coronary artery disease, GI bleed, non-Hodgkin's lymphoma, COPD, CKD 3 and diabetes mellitus presenting for evaluation after fall. Apparently patient was going to the bathroom when he fell backwards and hit his head. He lives at home with his and his granddaughter. EMS was called. Patient did have some bleeding from his nose. Patient states he felt tired today but denies any other symptomssuch as fever, chills, chest pain, difficulty breathing, shortness of breath, numbness or focal weakness. His chronic leg edema which is unchanged. Notes has been having black stools lately but cannot tell me for how long. Patient isconcerned that his symptoms are because of his blood sugar. Notes he started taking prednisone for his lungs today. Per EMS patient's blood sugar was in [id number]. Chart review shows the patient was recently admitted 03/03 through 03/06 for anemiaand hypoxia. Send also have acute hyperkalemia and hypoxia secondary to COPD exacerbation. Patient was diuresed and thought to have some fluid overload as well as he has a history of heart failure with reduced EF (EF 40% on echo from 11/17/2022). At time of admission patient's hemoglobin was 6.7 and he did receive 1 unit of packed red blood cells. He was so symptomatic so he received another unit. At time of discharge patient's hemoglobin was 10.0. [facility] Medical History Acute respiratory failure with hypoxia Allergic rhinitis Arthritis Asthma Atherosclerosis of coronary artery of [place] heart without angina pectoris Bleeding tendency Cancer Chronic bronchitis Colon polyp COPD (chronic obstructive pulmonary disease) COVID-19 in immunocompromised patient Diabetes DVT (deep venous thrombosis) (05/01/21) Essential hypertension Former smoker FTT (failure to thrive) in adult Gastritis High cholesterol History of basal cell carcinoma History of pilonidal cyst History of pulmonary embolus (PE) (04/30/21) History of stress test HTN (hypertension) Nicotine dependence, cigarettes, uncomplicated Non-Hodgkin lymphoma Obesity On home oxygen therapy Physical debility Pneumonia Positive colorectal cancer screening using Cologuard test RA (rheumatoid arthritis) Rhinovirus Tobacco abuse Type 2 diabetes mellitus Ulcer 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 complications Home Medications nitroglycerin 0.4 mg sublingual tablet (Nitrostat) 0.4 mg sublingual Q5M PRN chest pain #30 tabs 09/25/20 [Rx Last Taken Unknown] atorvastatin 40 mg tablet 20 mg PO QHS cholesterol 10/09/21 [History Last Taken 02/27/23] aspirin 81 mg tablet,delayed release 81 mg PO DAILY heart health 12/31/21 [History Last Taken 02/27/23] finasteride 5 mg tablet 5 mg PO DAILY prostate 08/14/22 [History Last Taken 02/27/23] tamsulosin 0.4 mg capsule 0.4 mg PO DAILY prostate 08/14/22 [History Last Taken 02/27/23] ferrous sulfate 325 mg (65 mg iron) tablet 325 mg PO DAILY iron supplement 09/13/22 [History Last Taken 02/27/23] multivitamin 1 tab PO DAILY vitamin 09/13/22 [History Last Taken 02/27/23] pantoprazole 40 mg tablet,delayed release 40 mg PO BID reflux #180 tabs 09/23/22[Rx Last Taken 02/27/23] escitalopram oxalate 10 mg tablet 10 mg PO DAILY mood 90 days #90 tabs 10/14/22 [Rx Last Taken 02/27/23] mirtazapine 15 mg tablet (Remeron) 7.5 mg (1/2 x 15 mg) PO QHS sleep #90 tabs 11/04/22 [Rx Last Taken 02/27/23] budesonide 1 mg/2 mL suspension for nebulization 1 mg inhalation Q12H lungs 11/15/22 [History Last Taken 02/27/23] albuterol sulfate 2.5 mg/3 mL (0.083 %) solution for nebulization 2.5 mg (3 mL) inhalation Q4H PRN Sob &/Or Wheezing #540 mL 01/13/23 [Rx Last Taken 02/27/23] ipratropium bromide 0.02 % solution for inhalation 2.5 ml inhalation Q6H PRN shortness of breath or wheezing #150 mL 01/13/23 [Rx Last Taken 02/27/23] azithromycin 500 mg tablet 500 mg PO DAILY 3 days #3 tabs 03/02/23 [Rx Last Taken Unknown] guaifenesin 1,200 mg tablet, extended release 12 hr (Mucus Relief ER) 1,200 mg PO BID 10 days #20 tabs 03/02/23 [Rx Last Taken Unknown] prednisone 20 mg tablet 20 mg PO BID #10 tabs 03/02/23 [Rx Last Taken Unknown] furosemide 40 mg tablet (Lasix) 40 mg PO DAILY #30 tabs 03/04/23 [Rx Last Taken Unknown] apixaban 5 mg tablet (Eliquis) 5 mg PO BID 30 days #60 tabs 03/06/23 [Rx Last Taken Unknown] metoprolol tartrate 25 mg tablet 12.5 mg (1/2 x 25 mg) PO BID 60 days #60 tabs 03/06/23 [Rx Last Taken Unknown] menthol 0.44 %-zinc oxide 20.6 % topical ointment (Calmoseptine) 1 applic topical 4-6XD PRN skin irritation #113 grams 03/07/23 [Rx Last Taken Unknown] Allergy/AdvReac Type Severity Reaction Status Date / Time levofloxacin [From Levaquin] AdvReac Intermediate diarrhea, Verified 03/16/23 13:47 dizziness, GI upset, weakness Family History Father Arthritis Bleeding disorder Hypertension Kidney disease Cancer Skin Anemia blood clots Emphysema lung Mother Colon cancer Cancer Lung Cancer Diabetes Brother Thyroid disorder Surgical History H/O cardiac catheterization History of coronary artery stent placement (10/22/13) History of embolic filter insertion History of excision of pilonidal cyst History of heart artery stent History of thymectomy Hx of lymph node excision Presence of IVC filter (04/2021) Status post cardiac surgery Social History household members: spouse Smoking Status: Former smoker Tobacco: How many years used: 55 second hand exposure: Yes alcohol intake: current alcohol intake frequency: holidays/special occasions only substance use type: does not use caffeine: Yes Type: coffee Number of servings: 3 what type of physical activity do you participate in: none frequency: does not exercise seatbelt use: always ROS ROS ED Constitutional Constitutional ED: Denies chills or fever(s) Eyes Eyes: Denies blurry vision ENT ENT ED: Denies ear pain or rhinorrhea Cardiovascular Cardiovascular: Denies chest pain Respiratory/Chest Respiratory/Chest: Denies cough or dyspnea Gastrointestinal Gastrointestinal: Reports melena; Denies abdominal pain, constipation, nausea orvomiting Genitourinary Genitourinary ED: Denies dysuria Musculoskeletal Musculoskeletal: Denies arthralgias or myalgias Integumentary Denies rash Neurologic Neurologic: Reports weakness; Denies headache(s) or paresthesias Psychiatric Psychiatric: Denies anxiety Hematologic/Lymphatic Hematologic/Lymphatic: Reports easy bleeding and easy bruising EXAM Physical Exam Const Vital Signs: 03/16/23 13:48 03/16/23 13:59 03/16/23 14:40 Temperature 96.8 F L Temperature Source Temporal Pulse Rate 69 71 Respiratory Rate 13 18 Respiratory Effort Normal Non-Labored Respiratory Pattern Normal Blood Pressure 105/47 L 85/55 L Blood Pressure Mean 66 65 Pulse Ox 100 100 Oxygen Delivery Method Nasal Cannula Nasal Cannula Oxygen Flow Rate (L/min) 4 4 03/16/23 14:40 03/16/23 14:20 03/16/23 14:00 Temperature Temperature Source Pulse Rate 76 68 Respiratory Rate 20 H 16 Respiratory Effort Respiratory Pattern Blood Pressure 85/65 L 99/49 L Blood Pressure Mean 71 65 Pulse Ox 100 98 100 Oxygen Delivery Method Nasal Cannula Nasal Cannula Nasal Cannula Oxygen Flow Rate (L/min) 4 4 2 03/16/23 15:01 03/16/23 15:01 03/16/23 14:43 Temperature 98 F Temperature Source Temporal Pulse Rate 71 71 70 Respiratory Rate 18 18 15 Respiratory Effort Respiratory Pattern Blood Pressure 96/45 L 96/45 L Blood Pressure Mean 62 62 Pulse Ox 100 100 100 Oxygen Delivery Method Room Air Room Air Oxygen Flow Rate (L/min) 03/16/23 14:45 03/16/23 14:50 03/16/23 15:00 Temperature Temperature Source Pulse Rate 73 70 71 Respiratory Rate 15 19 H 22 H Respiratory Effort Respiratory Pattern Blood Pressure 96/45 L Blood Pressure Mean 60 Pulse Ox 100 Oxygen Delivery Method Oxygen Flow Rate (L/min) 03/16/23 15:10 03/16/23 15:12 Temperature Temperature Source Pulse Rate 70 70 Respiratory Rate 18 22 H Respiratory Effort Respiratory Pattern Blood Pressure 94/49 L Blood Pressure Mean 64 Pulse Ox 100 Oxygen Delivery Method Oxygen Flow Rate (L/min) Positive well nourished Constitutional Narrative: Chronically ill-appearing General Appearance ED: pallor HEENT Reports TM's clear and moist mucous membranes HEENT Narrative: Dried blood noted at the nares, no active epistaxis at this time. Negative for trauma Tympanic Membrane ED: Yes TM's clear Eyes PERRL and EOMs intact bilaterally Neck supple Chest Wall inspection of chest normal and palpation of chest normal Resp normal respiratory effort and clear to auscultation bilaterally Auscultation: Negative for rales, rhonchi or wheezes Cardio regular rate Rhythm: abnormal rhythm GI normal to inspection, nondistended, normoactive bowel sounds, non-tender and non-distended GI Narrative: Gross melena noted on rectal exam Extremity normal to inspection General Extremety ED: Yes edema; Negative for tenderness General Extremity: edema Neuro oriented x3 Neuro Narrative: No focal neurologic deficits appreciated. Speech is clear. I do not appreciatea facial droop however family is concerned for 1 Sensorium / Orientation: alert Motor Exam: general weakness Psych mental status grossly normal Skin no rashes or lesions noted Skin Narrative: There is an area of ecchymosis to the left abdominal wall, no pulsatile mass or anything or hematoma appreciated. General Skin Exam: pallor MDM MDM MDM Narrative Medical decision making narrative: Patient's for evaluated for what is like syncope, head injury on Eliquis as wellas hyperglycemia. Patient not member falling exactly why he fell. Noted to have a blood sugar greater than 500 in the ER. Patient is quite pale appearing and is hypotensive upon arrival. Is given IV fluids. He does have melena on exam and concern for symptomatic anemia/GI bleed. GI note shows that patient had an EGD on 10/25/2021 which showed AVM lesion in theduodenum and red blood in the gastric fundus/cardia. He had another EGD on 12/10/2021 which showed nonbleeding gastric ulcers and 3 bleeding AVM. Capsule study in February 14 was without abnormalities. Patient's lab work is significant for leukocytosis of 21 and a hemoglobin of 5.0. This is an acute drop from 10 days ago. I suspect this is the cause of his presentation. Suspect his leukocytosis is secondary to a GI bleed as does not appear to be another obvious source of infection. Patient is hyperglycemic with a glucose of 817 however he has a normal anion gap. He does have an LUIS with a creatinine of 2.64 and an elevated BUN which is out of proportion to his LUIS of 105, again consistent with volume depletion and an upper GI bleed. Patient is on octreotide and Protonix. Patient is high since he troponin is elevated at 435 however I suspect this is type II associated with strain in 6 given I am concerned he has an active bleed I do not give him aspirin at this time. His lactate is also elevated at 4.5 but again I suspect this is hypovolemia associated with this GI bleed. Patient's blood pressure is fluid responsive however he is ordered 2 units of blood. His acetone is negative. Patient serum as molality is elevated as expected from his elevated BUN. He does not have an acidosis or anion gap and I do not suspect he is in DKA and I do not suspect he is in true HHNK. In addition he is mentating well. I do not think he needs insulin drip and blood sugar treated with IV fluids in the emergency room will be treated with subcu insulin per discussion with admitting physician and ICU. Patient does meet criteria for severe sepsis/septic shock as a do not believe his presentation is infectious and I think it is in fact secondary to hemorrhagefrom his GI. Blood cultures were obtained out of abundance of caution however Eusebio not think he requires a 30 cc/kg fluid bolus in fact I think it would make him worse given his anemia (what he really needs is blood products which are ordered) and will also worsen his underlying CHF. Spoke with the hospitalist who is also in agreement of this. He is afebrile in the ER. He has been on recent steroids which also could cause a leukocytosis. Patient remitted to the ICU. Case is discussed with GI on-call, jodie Clifford see the patient on consult. He recommends octreotide drip as well as 40 mgIV Protonix twice daily. Patient agreeable plan of care. He is agreeable to blood products. CT of the brain and cervical spine negative for any acute process associate withhis fall earlier today. Was possibly could have a stroke secondary to low bloodstate I do not think this is an acute ischemic stroke or embolic stroke (he is anticoagulated on Eliquis which likely is one of the reasons he is having bleeding issues) and he would not be TNK candidate. Do not appreciate any focalneurologic deficits and I do not think a stroke alert is indicated at this time. History & Record Review Discussion w/independent historian: EMS personnel and Patient Additional record(s) reviewed:: Prior outpatient record (See MDM and HPI) Lab Data Attestation: I reviewed the patient's lab results. Labs: Laboratory Results - last 24 hr 03/16/23 03/16/23 03/16/23 13:58 14:00 14:00 WBC 21.0 H RBC 1.66 L Hgb 5.0 L* Hct 16.6 L MCV 100.0 H MCH 30.1 MCHC 30.1 L RDW Std Deviation 63.7 H RDW Coeff of Rafael 20.1 H Plt Count 256 MPV 12.3 H Immature Gran % (Auto) 4.100 H Neut % (Auto) 82.4 H Lymph % (Auto) 7.3 L [place] % (Auto) 5.5 Eos % (Auto) 0.5 Baso % (Auto) 0.2 Absolute Neuts (auto) 17.3 H Absolute Lymphs (auto) 1.54 Nucleated RBC % 2.1 Differential Comment SCANNED Diff Path Review May foll Hypochromasia 1+ Anisocytosis 2+ Microcytosis 1+ Macrocytosis 1+ PT 18.0 H INR 1.5 APTT 24.5 Sodium 134 L Potassium 4.7 Chloride 94 L Carbon Dioxide 30.0 Anion Gap 10 BUN 105 H* Creatinine 2.64 H Estim Creat Clear Calc 29.26 Est GFR (MDRD) Af Amer 31 L Est GFR (MDRD) Non-Af 25 L BUN/Creatinine Ratio 39.8 H Glucose 817 H* Lactic Acid 4.5 H* Calcium 8.7 Total Bilirubin 0.60 AST 7 L ALT 19 Alkaline Phosphatase 61 Total Creatine Kinase 37 L Troponin I High Sens 435 H* Total Protein 5.2 L Albumin 2.8 L Globulin 2.4 Albumin/Globulin Ratio 1.2 Urine Color Urine Clarity Urine pH Ur Specific [place] Urine Protein Urine Glucose (UA) Urine Ketones Urine Occult Blood Urine Nitrite Urine Bilirubin Urine Urobilinogen Ur Leukocyte Esterase Urine RBC Urine WBC Ur Squamous Epith Cells Urine Bacteria Urine Mucus Acetone Level NEGATIVE POC Glucose > 500 H* Blood Type AB POSITIVE Antibody Screen NEGATIVE Crossmatch See Detail See Detail 03/16/23 14:40 WBC RBC Hgb Hct MCV MCH MCHC RDW Std Deviation RDW Coeff of Rafael Plt Count MPV Immature Gran % (Auto) Neut % (Auto) Lymph % (Auto) [place] % (Auto) Eos % (Auto) Baso % (Auto) Absolute Neuts (auto) Absolute Lymphs (auto) Nucleated RBC % Differential Comment Diff Path Review Hypochromasia Anisocytosis Microcytosis Macrocytosis PT INR APTT Sodium Potassium Chloride Carbon Dioxide Anion Gap BUN Creatinine Estim Creat Clear Calc Est GFR (MDRD) Af Amer Est GFR (MDRD) Non-Af BUN/Creatinine Ratio Glucose Lactic Acid Calcium Total Bilirubin AST ALT Alkaline Phosphatase Total Creatine Kinase Troponin I High Sens Total Protein Albumin Globulin Albumin/Globulin Ratio Urine Color Yellow Urine Clarity Clear Urine pH 6.5 Ur Specific [place] 1.010 Urine Protein 30 H Urine Glucose (UA) 1000 H Urine Ketones Negative Urine Occult Blood 25 H Urine Nitrite Negative Urine Bilirubin Negative Urine Urobilinogen Normal Ur Leukocyte Esterase 500 H Urine RBC 0 SEEN Urine WBC 50-100 SEEN Ur Squamous Epith Cells 0-5 SEEN Urine Bacteria 0 SEEN Urine Mucus 0 SEEN Acetone Level POC Glucose Blood Type Antibody Screen Crossmatch ABG Data ABG results: ABG 03/16/23 14:18 Specimen Type LEONEL Sample Site Not entered O2 % 4.0 VBG pH 7.39 VBG pO2 35 VBG HCO3 30 H VBG Total CO2 31 VBG O2 Sat (Calc) 65 VBG Base Excess 5 H POC Mix VBG pCO2 Pt Tmp 49.5 O2 Delivery Device Cannula Radiography Chest X-Ray - ED: 1 View, Read by ED Physician, Read by Radiologist, No Acute Disease and Right Effusion Diagnostic Testing: Clinical Impression(s) from Imaging Studies Chest X-Ray 03/16/23 14:04 IMPRESSION: Pulmonary findings appear improved. Electronically Signed: Moo Yanes MD at 14:48 EST , Brain CT 03/16/23 14:05 IMPRESSION: There are no acute findings. Chronic involutional changes of the brain. Electronically Signed: Moo Yanes MD at 14:43 EST , Cervical Spine CT 03/16/23 14:05 IMPRESSION: (NOT LISTED IN ORDER OF SIGNIFICANCE) There are no acute findings. Electronically Signed: Moo Yanes MD at 14:46 EST , Chest CT 03/16/23 15:05 IMPRESSION: Moderate right pleural effusion. Small left pleural effusion. Lower lobe bronchiectasis and a right lower lobe pneumonia. Electronically Signed: Moo Yanes MD at 16:50 EST , Rhythm Strip Rhythm Strip: A-fib Rate: 69 Ectopy: None EKG Initial EKG: Attestation: I personally reviewed and interpreted this EKG as follows: Interpretation: Atrial Fibrillation Comments: Atrial fibrillation rate of 69 bpm Normal axis Normal intervals Normal ST segments Compared to prior EKG on 03/05/23-improvement of rate but no significant change Prior EKG tracings: available for review Critical Care Time Critical Care Time: Yes Critical care time (excluding procedures): 30-74 minutes (40), Discussing w/Patient &/or Family/Supervising Law Enforcement Analyst, Discussing w/Consultants and Arranging Admission or Transfer Discharge Plan Triage Chief Complaint: General Illness ED Provider: Eva Marie Dx/Rx/DC Orders Clinical Impression: Acute on chronic blood loss anemia, Acute hyperglycemia, Syncope, Acute kidney injury superimposed on CKD, Acute upper GI bleed Primary Care Provider: Donna Will Disposition Disposition: Acute Care Hospital [facility] Discharge Date/Time: 03/16/23 17:40 What to do if you have Problems For any increased pain, shortness of breath, bleeding, nausea or vomiting, chestpain, or any unexpected problems, contact your Primary Care Provider. Call [facility] ([phone]) or report to the closest Emergency Room. Call 911 if necessary. 03/16/23 1741 <Electronically signed by Eva Marie DO> Cosigner Signature (if applicable): CC: Dr. Donna Will MD ~ Signed [facility] Work Phone: [phone]) 763-763901-11-2024 Discharge summary Author Jordan Ortiz [facility] March 06, 2023 11:07am Note Date/Time March 06, 2023 1 1:06am [facility] Medical Records Department [address] [place] [address] Discharge Summary 03/06/23 1105 MR#: [id number] Acct: [id number] Name: JAYDON ALONZO Jr. Rep #:[id number] : 1950 72 From: Jordan Ortiz MD PCP: Dr. Donna Will MD Status:ADM [id number] Prov[facility] Date of Admission: 03/03/23 Date of Discharge: 03/06/23 Primary Care Physician: Dr. Donna Will MD Reason For Visit: ANEMIA / HYPOXIA Diagnosis Discharge Diagnosis (1) Anemia: Status: Acute Code(s): D64.9 - Anemia, unspecified Qualifiers: Anemia type: unspecified type Qualified Code(s): D64.9 - Anemia, unspecified (2) Acute hyperkalemia: Status: Acute Code(s): E87.5 - Hyperkalemia (3) Acute dyspnea: Status: Acute Code(s): R06.00 - Dyspnea, unspecified Plan Patient is a 71-year-old gentleman admitted with progressive shortness of breathand assessment of acute congestive heart failure made admitted to monitored bed for further management 1. Acute hypoxia secondary to COPD with acute exacerbation ? Patient initial viral respiratory panel came back negative. Patient managed with systemic steroid, azithromycin, supplemental oxygen as well as guaifenesin for his cough ? 03/02/2023; patient remains stable ? 03/03/2023. Plan to discharge patient home the day prior discontinued followingcontinuous dyspnea. 2. Acute on chronic congestive heart failure with reduced ejection fraction ? 2D echo from 11/17/2022 demonstrated EF of 40%. Patient remains euvolemic ? 03/03/2023, given patient dyspnea ordered BMP patient started on Lasix ? 03/04/2023 patient responded to Lasix 3. Anemia ? Patient has microcytosis do suspect patient is anemia contributing to his significant dyspnea,. Patient hemoglobin on admission was 6.7 was transfused 1 unit PRBC. Hemoglobin came up to 7.1 and with patient deemed to be symptomatic an order was given for patient to be transfused with additional 1 unit PRBC. Subsequent monitoring with daily H&H ordered 4. Hyperkalemia ? Patient potassium level on admission was 7.0. Did receive Kayexalate and subsequently admitted to monitored bed for subsequent eval ? Patient was on lisinopril this was discontinued on discharge 5.? Chronic hypoxic respiratory failure ? Secondary to suspected pulmonary fibrosis from prior COVID-19 infection.? Patient currently on supplemental oxygen 6..? 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 Previously treated with apixaban.? Patient did not tolerate apixaban as a result of GI bleed he underwent IVC filter placement on 05/02/2021 7.? Diabetes mellitus type II Managed with diet 8.? Rheumatoid arthritis Patient previously treated with rituximab as outpatient 9.? Non Hodgkin's lymphoma ?Apparently in remission 10.? Coronary artery disease ?With previous PCI of an LAD RCA and mid circumflex lesions 11. BPH with lower urinary obstruction - Patient treated with tamsulosin 12. GERD The patient is on PPI 13. Chronic kidney disease stage IIIb ? Patient kidney function at baseline 14..? Dyslipidemia -Patient is on statin therapy, continued at home dose 15..? Hypertension - Blood pressure controlled, home medications continued with dose adjustment as needed 16. Depression ? Patient is on SSRI 17. DVT prophylaxis ? Bilateral SCD, 18. Tachycardia ? Ordered EKG for assessment of patient underlying rhythm. 19. New onset A-fib ? Patient [id number] score was calculated to be 5 patient subsequently startedon systemic anticoagulation with apixaban after discussion with him Time spent in the patient's overall evaluation,decision-making process, review of diagnostic data, adjustment of management, discussion with other providers, nursing nursing and ancillary staff involved in patient's care documentation,40 minutes Medications at Discharge Home Medications nitroglycerin 0.4 mg sublingual tablet (Nitrostat) 0.4 mg sublingual Q5M PRN chest pain #30 tabs 09/25/20 atorvastatin 40 mg tablet 20 mg PO QHS cholesterol 10/09/21 aspirin 81 mg tablet,delayed release 81 mg PO DAILY 12/31/21 finasteride 5 mg tablet 5 mg PO DAILY 08/14/22 tamsulosin 0.4 mg capsule 0.4 mg PO DAILY 08/14/22 ferrous sulfate 325 mg (65 mg iron) tablet 325 mg PO DAILY iron supplement 07/21/23 multivitamin 1 tab PO DAILY 09/13/22 pantoprazole 40 mg tablet,delayed release 40 mg PO BID #180 tabs 09/23/22 escitalopram oxalate 10 mg tablet 10 mg PO DAILY mood 90 days #90 tabs 10/14/22 mirtazapine 15 mg tablet (Remeron) 7.5 mg (1/2 x 15 mg) PO QHS sleep #90 tabs 11/04/22 budesonide 1 mg/2 mL suspension for nebulization 1 mg inhalation Q12H lungs 11/15/22 albuterol sulfate 2.5 mg/3 mL (0.083 %) solution for nebulization 2.5 mg (3 mL) inhalation Q4H PRN Sob &/Or Wheezing #540 mL 01/13/23 ipratropium bromide 0.02 % solution for inhalation 2.5 ml inhalation Q6H PRN shortness of breath or wheezing #150 mL 01/13/23 azithromycin 500 mg tablet 500 mg PO DAILY 3 days #3 tabs 03/02/23 guaifenesin 1,200 mg tablet, extended release 12 hr (Mucus Relief ER) 1,200 mg PO BID 10 days #20 tabs 03/02/23 prednisone 20 mg tablet 20 mg PO BID #10 tabs 03/02/23 furosemide 40 mg tablet (Lasix) 40 mg PO DAILY #30 tabs 03/04/23 apixaban 5 mg tablet (Eliquis) 5 mg PO BID 30 days #60 tabs 03/06/23 Hospital Course Summary of Care Provided Minutes Spent on Discharge: 40 Physical Exam Narrative GENERAL: cooperative HEENT: Atraumatic; normocephalic EYES; Anicteric, Normal Conjunctiva NECK; supple, normal thyroid, RESPIRATORY: Diminished to auscultation CARDIOVASCULAR: Irregular S1 S2, tachycardic GI: soft, normoactive bowel sounds, : No Renal angle tenderness; EXTREMITIES: No edema, no clubbing, MUSCULOSKELETAL: no muscle wasting NEURO: Awake; no lateralizing signs. SKIN: No Rash PSYCH; Flat affect Weight / BMI Weight Weight: 109 kg Body Mass Index (BMI) 33.5 ABG / Lab / Microbiology Data 03/06/23 07:05 03/06/23 07:05 Laboratory: Laboratory Results - last 24 hr 03/05/23 11:03: WBC 11.9 H, RBC 3.35 L, Hgb 9.9 L, Hct 31.9 L, MCV 95.2 H, MCH 29.6, MCHC 31.0 L, RDW Std Deviation 63.7 H, RDW Coeff of Rafael 18.2 H, Plt Count 257, MPV 10.8, Sodium 140, Potassium 4.5, Chloride 105, Carbon Dioxide 31.0, Anion Gap 4 L, BUN 53 H, Creatinine 1.71 H, Estim Creat Clear Calc 48.36, Est GFR (MDRD) Af Amer 51 L, Est GFR (MDRD) Non-Af 42 L, BUN/Creatinine Ratio 31.0 H, Glucose 272 H, Calcium 8.9, Magnesium 1.9, Total Bilirubin 0.50, AST 9 L, ALT 19, Alkaline Phosphatase 66, Total Protein 6.0 L, Albumin 3.1 L, Globulin 2.9, Albumin/Globulin Ratio 1.1 03/05/23 11:52: POC Glucose 255 H 03/05/23 17:40: POC Glucose 262 H 03/05/23 21:23: POC Glucose 265 H 03/06/23 05:48: POC Glucose 217 H 03/06/23 07:05: WBC 10.9, RBC 3.37 L, Hgb 10.0 L, Hct 31.3 L, MCV 92.9, MCH 29.7, MCHC 31.9 L, RDW Std Deviation 62.2 H, RDW Coeff of Rafael 18.0 H, Plt Count 244, MPV 11.1, Immature Gran % (Auto) 0.700, Neut % (Auto) 79.8 H, Lymph % (Auto) 8.3 L, [place] % (Auto) 10.8 H, Eos % (Auto) 0.3, Baso % (Auto) 0.1, Absolute Neuts (auto) 8.7 H, Absolute Lymphs (auto) 0.90, Nucleated RBC % 0, Sodium 142, Potassium 4.1, Chloride 103, Carbon Dioxide 34.0 H, Anion Gap 5, BUN55 H, Creatinine 1.53 H, Estim Creat Clear Calc 54.00, Est GFR (MDRD) Af Amer 58L, Est GFR (MDRD) Non-Af 48 L, BUN/Creatinine Ratio 35.9 H, Glucose 199 H, Calcium 8.9, Phosphorus 2.6 Microbiology: Microbiology 03/01/23 12:45 Stool Stool Occult Blood ([facility]) - Final Occult Blood Positive 02/28/23 19:05 Mucosa - Nasopharyngeal Respiratory Panel (PCR) - Final 02/28/23 12:15 Mucosa - Nasopharyngeal SARS-CoV-2, Influenza & RSV (PCR) - Final D/C Instructions Discharge Diet: Low fat / Low cholesterol and 8 Cup Fluid Restriction Call your doctor if you observe: Fever of 101 or Higher, Shortness of breath, Fainting spells and Chest pain Meaningful Use Info Meaningful Use Diagnoses (Choose all that apply): CHF CHF MEDHAT/ARB ordered at discharge?: Yes Reason MEDHAT/ARB not ordered?: Hypotension and Worsening renal disease Documented LVEF (%): 40 Discharge Plan Admission Admit Date/Time: 03/03/23 09:51 Attending Provider: Jordan Ortiz Primary Care Provider: Donna Will Consulting Providers: Mable Pritchard Discharge Orders/Prescriptions Prescriptions: New guaifenesin [Mucus Relief ER] 1,200 mg Tablet Extended Release 12hr 1,200 mg PO BID 10 Days Qty: 20 0RF prednisone 20 mg tablet 20 mg PO BID Qty: 10 0RF azithromycin 500 mg tablet 500 mg PO DAILY 3 Days Qty: 3 0RF furosemide [Lasix] 40 mg tablet 40 mg PO DAILY Qty: 30 0RF Eliquis 5 mg Tablet 5 mg PO BID 30 Days Qty: 60 0RF Continued nitroglycerin [Nitrostat] 0.4 mg tablet, sublingual 0.4 mg SUBLINGUAL Q5M PRN (Reason: chest pain) Qty: 30 0RF Rx Instructions: until response; do not exceed 3 doses per episode multivitamin Tablet 1 tab PO DAILY tamsulosin 0.4 mg capsule 0.4 mg PO DAILY finasteride 5 mg tablet 5 mg PO DAILY ferrous sulfate 325 mg (65 mg iron) tablet 325 mg PO DAILY atorvastatin 40 mg tablet 20 mg PO QHS aspirin 81 mg Tablet,Delayed Release (Dr/Ec) 81 mg PO DAILY budesonide 1 mg/2 mL suspension for nebulization 1 mg inhalation Q12H pantoprazole 40 mg tablet,delayed release (DR/EC) 40 mg PO BID Qty: 180 3RF escitalopram oxalate 10 mg tablet 10 mg PO DAILY 90 Days Qty: 90 3RF mirtazapine [Remeron] 15 mg tablet 7.5 mg PO QHS Qty: 90 1RF ipratropium bromide 0.02 % solution 2.5 ml inhalation Q6H PRN (Reason: shortness of breath or wheezing) Qty: 150 6RF albuterol sulfate 2.5 mg /3 mL (0.083 %) solution for nebulization 2.5 mg inhalation Q4H PRN (Reason: Sob &/Or Wheezing) Qty: 540 3RF Discontinued lisinopril 2.5 mg tablet 2.5 mg PO DAILY Qty: 90 3RF Referrals / Follow Up: Donna Will MD [Primary Care Provider] - Within 1 Week Disposition Disposition (needs filled in before D/C Order can be placed): Home, Self Care Charges/Coding Visit Charges Inpatient E&M: 75810 Disch Hosp >30min 03/06/23 1107 <Electronically signed by Jordan Ortiz MD> Cosigner Signature (if applicable): CC: Dr. Jordan Ortiz MD; Dr. Donna Will MD~ Signed [facility] Work Phone: 1(346) 683-940501-11-2024 Progress note Author [facility] March 06, 2023 9:43am Note Date/Time March 06, 2023 9 :43am [facility] Medical Records Department [address] [place] [address] Progress Note - Hospitalist 03/06/23 0940 MR#: [id number] Acct: [id number] Name: JAYDON ALONZO Andre Roper Rep #:[id number] : 1950 72 From: Jordan Ortiz MD PCP: Dr. Donna Will MD Status:ADM IN Location: [place] [address]- Reason for Visit Reason for Visit: Diagnoses Anemia, unspecified (03/03/23) Type 2 diabetes mellitus without complications (03/03/23) Hyperkalemia (03/03/23) Heart failure, unspecified (03/03/23) Chronic obstructive pulmonary disease with (acute) exacerbation (03/03/23) Dyspnea, unspecified (03/03/23) Personal history of pulmonary embolism (03/03/23) Personal history of other diseases of the respiratory system (03/03/23) Personal history of other diseases of urinary system (03/03/23) Presence of coronary angioplasty implant and graft (03/03/23) Subjective Subjective Patient seen breathing remained stable however was found to be in A-fib with relatively well-controlled rate. Objective Data Objective Data Vital Signs: Vital Signs Temp Pulse Resp BP Pulse Ox O2 Del Method O2 Flow Rate 98.1 F 115 H 15 110/63 93 Nasal Cannula 4 03/06/23 08:44 03/06/23 08:52 03/06/23 08:44 03/06/23 08:52 03/06/23 08:44 03/06/23 08:44 03/06/23 08:44 Oxygen Flow Rate (L/min) [ 8 AMBULATING with Oxygen #3] Oxygen Flow Rate (L/min) [ 6 AMBULATING with Oxygen #2] Oxygen Flow Rate (L/min) [ 4 AMBULATING with Oxygen #1] Oxygen Flow Rate (L/min) [At 4 REST with Oxygen] Oxygen Flow Rate (L/min) 4 Oxygen Delivery Method Nasal Cannula Weight: 109 kg Body Mass Index (BMI) 33.5 Intake & Output: Intake and Output for Last 24 Hours 03/04/23 03/05/23 03/06/23 23:59 23:59 23:59 Intake Total 1435 / 1435 1285 / 1525 480 / 480 Output Total 4350 / 5750 3825 / 3825 1500 / 1500 Balance -2915 / -4315 -2540 / -2300 -1020 / -1020 Lab / Micro Data 03/06/23 07:05 03/06/23 07:05 Labs: Laboratory Results - last 24 hr 03/05/23 11:03: WBC 11.9 H, RBC 3.35 L, Hgb 9.9 L, Hct 31.9 L, MCV 95.2 H, MCH 29.6, MCHC 31.0 L, RDW Std Deviation 63.7 H, RDW Coeff of Rafael 18.2 H, Plt Count 257, MPV 10.8, Sodium 140, Potassium 4.5, Chloride 105, Carbon Dioxide 31.0, Anion Gap 4 L, BUN 53 H, Creatinine 1.71 H, Estim Creat Clear Calc 48.36, Est GFR (MDRD) Af Amer 51 L, Est GFR (MDRD) Non-Af 42 L, BUN/Creatinine Ratio 31.0 H, Glucose 272 H, Calcium 8.9, Magnesium 1.9, Total Bilirubin 0.50, AST 9 L, ALT 19, Alkaline Phosphatase 66, Total Protein 6.0 L, Albumin 3.1 L, Globulin 2.9, Albumin/Globulin Ratio 1.1 03/05/23 11:52: POC Glucose 255 H 03/05/23 17:40: POC Glucose 262 H 03/05/23 21:23: POC Glucose 265 H 03/06/23 05:48: POC Glucose 217 H 03/06/23 07:05: WBC 10.9, RBC 3.37 L, Hgb 10.0 L, Hct 31.3 L, MCV 92.9, MCH 29.7, MCHC 31.9 L, RDW Std Deviation 62.2 H, RDW Coeff of Rafael 18.0 H, Plt Count 244, MPV 11.1, Immature Gran % (Auto) 0.700, Neut % (Auto) 79.8 H, Lymph % (Auto) 8.3 L, [place] % (Auto) 10.8 H, Eos % (Auto) 0.3, Baso % (Auto) 0.1, Absolute Neuts (auto) 8.7 H, Absolute Lymphs (auto) 0.90, Nucleated RBC % 0, Sodium 142, Potassium 4.1, Chloride 103, Carbon Dioxide 34.0 H, Anion Gap 5, BUN55 H, Creatinine 1.53 H, Estim Creat Clear Calc 54.00, Est GFR (MDRD) Af Amer 58L, Est GFR (MDRD) Non-Af 48 L, BUN/Creatinine Ratio 35.9 H, Glucose 199 H, Calcium 8.9, Phosphorus 2.6 Micro: Microbiology 03/01/23 12:45 Stool Stool Occult Blood ([facility]) - Final Occult Blood Positive 02/28/23 19:05 Mucosa - Nasopharyngeal Respiratory Panel (PCR) - Final 02/28/23 12:15 Mucosa - Nasopharyngeal SARS-CoV-2, Influenza & RSV (PCR) - Final Rhythm Strip Rhythm Strip: Sinus Rhythm Rate: 82 Ectopy: None Physical Exam Narrative GENERAL: cooperative HEENT: Atraumatic; normocephalic EYES; Anicteric, Normal Conjunctiva NECK; supple, normal thyroid, RESPIRATORY: Diminished to auscultation CARDIOVASCULAR: Irregular S1 S2, tachycardic GI: soft, normoactive bowel sounds, : No Renal angle tenderness; EXTREMITIES: No edema, no clubbing, MUSCULOSKELETAL: no muscle wasting NEURO: Awake; no lateralizing signs. SKIN: No Rash PSYCH; Flat affect Assessment & Plan Assessment/Plan (1) Anemia: QUALIFIERS: Anemia type: unspecified type Qualified Code(s): D64.9 - Anemia, unspecified (2) Acute hyperkalemia: (3) Acute dyspnea: PLAN: Plan Patient is a 71-year-old gentleman admitted with progressive shortness of breathand assessment of acute congestive heart failure made admitted to monitored bed for further management 1. Acute hypoxia secondary to COPD with acute exacerbation ? Patient initial viral respiratory panel came back negative. Patient managed with systemic steroid, azithromycin, supplemental oxygen as well as guaifenesin for his cough ? 03/02/2023; patient remains stable ? 03/03/2023. Plan to discharge patient home the day prior discontinued followingcontinuous dyspnea. 2. Acute on chronic congestive heart failure with reduced ejection fraction ? 2D echo from 11/17/2022 demonstrated EF of 40%. Patient remains euvolemic ? 03/03/2023, given patient dyspnea ordered BMP patient started on Lasix ? 03/04/2023 patient responded to Lasix 3. Anemia ? Patient has microcytosis do suspect patient is anemia contributing to his significant dyspnea,. Patient hemoglobin on admission was 6.7 was transfused 1 unit PRBC. Hemoglobin came up to 7.1 and with patient deemed to be symptomatic an order was given for patient to be transfused with additional 1 unit PRBC. Subsequent monitoring with daily H&H ordered 4. Hyperkalemia ? Patient potassium level on admission was 7.0. Did receive Kayexalate and subsequently admitted to monitored bed for subsequent eval ? Patient was on lisinopril this was discontinued on discharge 5.? Chronic hypoxic respiratory failure ? Secondary to suspected pulmonary fibrosis from prior COVID-19 infection.? Patient currently on supplemental oxygen 6..? 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 Previously treated with apixaban.? Patient did not tolerate apixaban as a result of GI bleed he underwent IVC filter placement on 05/02/2021 7.? Diabetes mellitus type II Managed with diet 8.? Rheumatoid arthritis Patient previously treated with rituximab as outpatient 9.? Non Hodgkin's lymphoma ?Apparently in remission 10.? Coronary artery disease ?With previous PCI of an LAD RCA and mid circumflex lesions 11. BPH with lower urinary obstruction - Patient treated with tamsulosin 12. GERD The patient is on PPI 13. Chronic kidney disease stage IIIb ? Patient kidney function at baseline 14..? Dyslipidemia -Patient is on statin therapy, continued at home dose 15..? Hypertension - Blood pressure controlled, home medications continued with dose adjustment as needed 16. Depression ? Patient is on SSRI 17. DVT prophylaxis ? Bilateral SCD, 18. Tachycardia ? Ordered EKG for assessment of patient underlying rhythm. 19. New onset A-fib ? Patient [id number] score was calculated to be 5 patient subsequently startedon systemic anticoagulation with apixaban after discussion with him Time spent in the patient's overall evaluation,decision-making process, review of diagnostic data, adjustment of management, discussion with other providers, nursing nursing and ancillary staff involved in patient's care documentation,40 minutes Charges/Coding Visit Charges Inpatient E&M: 31943 Subs Hosp L2 03/06/23 0943 <Electronically signed by Jordan Ortiz MD> Cosigner Signature (if applicable): CC: ~ Signed [facility] Work Phone: 1(366) 731-715701-10-2024 Progress note Author [facility] March 05, 2023 10:15am Note Date/Time March 05, 2023 1 0:15am [facility] Medical Records Department [address] [place] [id number] Progress Note - Hospitalist 03/05/23 1012 MR#: [id number] Acct: [id number] Name: JAYDON ALONZO Jr. Rep #:[id number] : 1950 72 From: Jordan Ortiz MD PCP: Dr. Donna Will MD Status:ADM IN Location: [place] [address] Reason for Visit Reason for Visit: Diagnoses Anemia, unspecified (03/03/23) Type 2 diabetes mellitus without complications (03/03/23) Hyperkalemia (03/03/23) Heart failure, unspecified (03/03/23) Chronic obstructive pulmonary disease with (acute) exacerbation (03/03/23) Dyspnea, unspecified (03/03/23) Personal history of pulmonary embolism (03/03/23) Personal history of other diseases of the respiratory system (03/03/23) Personal history of other diseases of urinary system (03/03/23) Presence of coronary angioplasty implant and graft (03/03/23) Subjective Subjective Patient seen tachycardic this morning with heart rate in the 130s ordered EKG. Also ordered CBC with differential as well as BMP and magnesium. If patient hemoglobin is found to be relatively low patient will be transfused with 1 unit PRBC for symptomatic anemia. Decision to discharge patient home cancelled Objective Data Objective Data Vital Signs: Vital Signs Temp Pulse Resp BP Pulse Ox O2 Del Method O2 Flow Rate 97.9 F 130 H 18 97/66 95 Nasal Cannula 4 03/05/23 10:01 03/05/23 10:01 03/05/23 10:01 03/05/23 10:01 03/05/23 10:01 03/05/23 10:01 03/05/23 10:01 Oxygen Flow Rate (L/min) [ 8 AMBULATING with Oxygen #3] Oxygen Flow Rate (L/min) [ 6 AMBULATING with Oxygen #2] Oxygen Flow Rate (L/min) [ 4 AMBULATING with Oxygen #1] Oxygen Flow Rate (L/min) [At 4 REST with Oxygen] Oxygen Flow Rate (L/min) 4 Oxygen Delivery Method Nasal Cannula Weight: 109.2 kg Body Mass Index (BMI) 33.5 Intake & Output: Intake and Output for Last 24 Hours 03/03/23 03/04/23 03/05/23 23:59 23:59 23:59 Intake Total 1895 / 1895 1435 / 1435 Output Total 1750 / 2900 4350 / 5750 1400 / 1400 Balance 145 / -1005 -2915 / -4315 -1400 / -1400 Lab / Micro Data 03/04/23 07:20 03/04/23 07:20 Labs: Laboratory Results - last 24 hr 02/28/23 16:05: Crossmatch See Detail 03/04/23 12:15: POC Glucose 478 H* 03/04/23 15:48: POC Glucose 467 H* 03/04/23 15:50: POC Glucose 499 H* 03/04/23 21:53: POC Glucose 312 H 03/05/23 06:22: POC Glucose 178 H Micro: Microbiology 03/01/23 12:45 Stool Stool Occult Blood ([facility]) - Final Occult Blood Positive 02/28/23 19:05 Mucosa - Nasopharyngeal Respiratory Panel (PCR) - Final 02/28/23 12:15 Mucosa - Nasopharyngeal SARS-CoV-2, Influenza & RSV (PCR) - Final Rhythm Strip Rhythm Strip: Sinus Rhythm Rate: 82 Ectopy: None Physical Exam Narrative GENERAL: cooperative HEENT: Atraumatic; normocephalic EYES; Anicteric, Normal Conjunctiva NECK; supple, normal thyroid, RESPIRATORY: Diminished to auscultation CARDIOVASCULAR: Regular S1 S2, tachycardic GI: soft, normoactive bowel sounds, : No Renal angle tenderness; EXTREMITIES: No edema, no clubbing, MUSCULOSKELETAL: no muscle wasting NEURO: Awake; no lateralizing signs. SKIN: No Rash PSYCH; Flat affect Assessment & Plan Assessment/Plan (1) Anemia: QUALIFIERS: Anemia type: unspecified type Qualified Code(s): D64.9 - Anemia, unspecified (2) Acute hyperkalemia: (3) Acute dyspnea: PLAN: Plan Patient is a 71-year-old gentleman admitted with progressive shortness of breathand assessment of acute congestive heart failure made admitted to monitored bed for further management 1. Acute hypoxia secondary to COPD with acute exacerbation ? Patient initial viral respiratory panel came back negative. Patient managed with systemic steroid, azithromycin, supplemental oxygen as well as guaifenesin for his cough ? 03/02/2023; patient remains stable ? 03/03/2023. Plan to discharge patient home the day prior discontinued followingcontinuous dyspnea. 2. Acute on chronic congestive heart failure with reduced ejection fraction ? 2D echo from 11/17/2022 demonstrated EF of 40%. Patient remains euvolemic ? 03/03/2023, given patient dyspnea ordered BMP patient started on Lasix ? 03/04/2023 patient responded to Lasix 3. Anemia ? Patient has microcytosis do suspect patient is anemia contributing to his significant dyspnea,. Patient hemoglobin on admission was 6.7 was transfused 1 unit PRBC. Hemoglobin came up to 7.1 and with patient deemed to be symptomatic an order was given for patient to be transfused with additional 1 unit PRBC. Subsequent monitoring with daily H&H ordered 4. Hyperkalemia ? Patient potassium level on admission was 7.0. Did receive Kayexalate and subsequently admitted to monitored bed for subsequent eval ? Patient was on lisinopril this was discontinued on discharge 5.? Chronic hypoxic respiratory failure ? Secondary to suspected pulmonary fibrosis from prior COVID-19 infection.? Patient currently on supplemental oxygen 6..? 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 Previously treated with apixaban.? Patient did not tolerate apixaban as a result of GI bleed he underwent IVC filter placement on 05/02/2021 7.? Diabetes mellitus type II Managed with diet 8.? Rheumatoid arthritis Patient previously treated with rituximab as outpatient 9.? Non Hodgkin's lymphoma ?Apparently in remission 10.? Coronary artery disease ?With previous PCI of an LAD RCA and mid circumflex lesions 11. BPH with lower urinary obstruction - Patient treated with tamsulosin 12. GERD The patient is on PPI 13. Chronic kidney disease stage IIIb ? Patient kidney function at baseline 14..? Dyslipidemia -Patient is on statin therapy, continued at home dose 15..? Hypertension - Blood pressure controlled, home medications continued with dose adjustment as needed 16. Depression ? Patient is on SSRI 17. DVT prophylaxis ? Bilateral SCD, 18. Tachycardia ? Ordered EKG for assessment of patient underlying rhythm. Time spent in the patient's overall evaluation,decision-making process, review of diagnostic data, adjustment of management, discussion with other providers, nursing nursing and ancillary staff involved in patient's care documentation, 50minutes Charges/Coding Visit Charges Inpatient E&M: 56067 Subs Hosp L3 03/05/23 1015 <Electronically signed by Jordan Ortiz MD> Cosigner Signature (if applicable): CC: ~ Signed [facility] Work Phone: 1(381) 296-286001-09-2024 Consult note Author Peter Moseley [facility] March 04, 2023 12:01pm Note Date/Time March 04, 2023 12 :02pm [facility] Medical Records Department [address] [place] [address] Counseling Note - Pharmacy 03/04/23 1201 MR#: [id number] Acct: [id number] Name: JAYDON ALONZO Jr. Rep #:[id number] : 1950 72 From: Peter Moseley PCP: Dr. Donna Will MD Status:ADM IN [facility] has performed discharge medication reconciliation and counseling for this patient. The patient's discharge medication list was reviewed for discrepancies and discrepancies were resolved. The patient was counseled on the following discharge medications and changes in medications for homegoing were reviewed. The Reason for Use, instructions for use, and potential side effects were reviewed for all new medications. The patient's questions regarding all of their medications were answered. 1. Azithromycin 500 mg PO Daily x 3 days 2. Prednisone 20 mg PO BID x 5 days 3. Guaifenesin 1200 mg PO BID x 10 days 4. Furosemide 40 mg PO daily The patient was able to verbally demonstrate an understanding of their dischargemedications. Medications at Discharge Home Medications nitroglycerin 0.4 mg sublingual tablet (Nitrostat) 0.4 mg sublingual Q5M PRN chest pain #30 tabs 09/25/20 atorvastatin 40 mg tablet 20 mg PO QHS cholesterol 10/09/21 aspirin 81 mg tablet,delayed release 81 mg PO DAILY 12/31/21 finasteride 5 mg tablet 5 mg PO DAILY 08/14/22 tamsulosin 0.4 mg capsule 0.4 mg PO DAILY 08/14/22 ferrous sulfate 325 mg (65 mg iron) tablet 325 mg PO DAILY iron supplement 09/13/22 multivitamin 1 tab PO DAILY 09/13/22 pantoprazole 40 mg tablet,delayed release 40 mg PO BID #180 tabs 09/23/22 escitalopram oxalate 10 mg tablet 10 mg PO DAILY mood 90 days #90 tabs 10/14/22 mirtazapine 15 mg tablet (Remeron) 7.5 mg (1/2 x 15 mg) PO QHS sleep #90 tabs 11/04/22 budesonide 1 mg/2 mL suspension for nebulization 1 mg inhalation Q12H lungs 11/15/22 albuterol sulfate 2.5 mg/3 mL (0.083 %) solution for nebulization 2.5 mg (3 mL) inhalation Q4H PRN Sob &/Or Wheezing #540 mL 01/13/23 ipratropium bromide 0.02 % solution for inhalation 2.5 ml inhalation Q6H PRN shortness of breath or wheezing #150 mL 01/13/23 azithromycin 500 mg tablet 500 mg PO DAILY 3 days #3 tabs 03/02/23 guaifenesin 1,200 mg tablet, extended release 12 hr (Mucus Relief ER) 1,200 mg PO BID 10 days #20 tabs 03/02/23 prednisone 20 mg tablet 20 mg PO BID #10 tabs 03/02/23 furosemide 40 mg tablet (Lasix) 40 mg PO DAILY #30 tabs 03/04/23 03/04/23 1201 <Electronically signed by Peter delarosa> Date _ Peter Moseley Cosigner Signature (if applicable): Date CC: ~ Signed [facility] Work Phone: [phone]) 842-632601-09-2024 Discharge summary [facility] March 04, 2023 11:39am Note Date/Time March 04, 2023 11 :39am [facility] Medical Records Department [address] [place] [address] Discharge Summary 03/04/23 1138 MR#: [id number] Acct: [id number] Name: CHERIJAYDON Andre Roper Rep #:[id number] : 1950 72 From: Jordan Ortiz MD PCP: Dr. Donna Will MD Status:ADM IN Location: [place] [address] Providers Date of Admission: 03/03/23 Date of Discharge: 03/04/23 Primary Care Physician: Dr. Donna Will MD Reason For Visit: ANEMIA / HYPOXIA Diagnosis Discharge Diagnosis (1) Anemia: Status: Acute Code(s): D64.9 - Anemia, unspecified Qualifiers: Anemia type: unspecified type Qualified Code(s): D64.9 - Anemia, unspecified (2) Acute hyperkalemia: Status: Acute Code(s): E87.5 - Hyperkalemia (3) Acute dyspnea: Status: Acute Code(s): R06.00 - Dyspnea, unspecified Plan Patient is a 71-year-old gentleman admitted with progressive shortness of breathand assessment of acute congestive heart failure made admitted to monitored bed for further management 1. Acute hypoxia secondary to COPD with acute exacerbation ? Patient initial viral respiratory panel came back negative. Patient managed with systemic steroid, azithromycin, supplemental oxygen as well as guaifenesin for his cough ? 03/02/2023; patient remains stable ? 03/03/2023. Plan to discharge patient home the day prior discontinued followingcontinuous dyspnea. 2. Acute on chronic congestive heart failure with reduced ejection fraction ? 2D echo from 11/17/2022 demonstrated EF of 40%. Patient remains euvolemic ? 03/03/2023, given patient dyspnea ordered BMP patient started on Lasix ? 03/04/2023 patient responded to Lasix 3. Anemia ? Patient has microcytosis do suspect patient is anemia contributing to his significant dyspnea,. Patient hemoglobin on admission was 6.7 was transfused 1 unit PRBC. Hemoglobin came up to 7.1 and with patient deemed to be symptomatic an order was given for patient to be transfused with additional 1 unit PRBC. Subsequent monitoring with daily H&H ordered 4. Hyperkalemia ? Patient potassium level on admission was 7.0. Did receive Kayexalate and subsequently admitted to monitored bed for subsequent eval ? Patient was on lisinopril this was discontinued on discharge 5.? Chronic hypoxic respiratory failure ? Secondary to suspected pulmonary fibrosis from prior COVID-19 infection.? Patient currently on supplemental oxygen 6..? 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 Previously treated with apixaban.? Patient did not tolerate apixaban as a result of GI bleed he underwent IVC filter placement on 05/02/2021 7..? Diabetes mellitus type II Managed with diet 8.? Rheumatoid arthritis Patient previously treated with rituximab as outpatient 9.? Non Hodgkin's lymphoma ?Apparently in remission 10.? Coronary artery disease ?With previous PCI of an LAD RCA and mid circumflex lesions 11. BPH with lower urinary obstruction - Patient treated with tamsulosin 12. GERD The patient is on PPI 13. Chronic kidney disease stage IIIb ? Patient kidney function at baseline 14..? Dyslipidemia -Patient is on statin therapy, continued at home dose 15..? Hypertension - Blood pressure controlled, home medications continued with dose adjustment as needed 16. Depression ? Patient is on SSRI 17. DVT prophylaxis ? Bilateral SCD, Time spent in the patient's overall evaluation,decision-making process, review of diagnostic data, adjustment of management, discussion with other providers, nursing nursing and ancillary staff involved in patient's care documentation, 35minutes Medications at Discharge Home Medications nitroglycerin 0.4 mg sublingual tablet (Nitrostat) 0.4 mg sublingual Q5M PRN chest pain #30 tabs 09/25/20 atorvastatin 40 mg tablet 20 mg PO QHS cholesterol 10/09/21 aspirin 81 mg tablet,delayed release 81 mg PO DAILY 12/31/21 finasteride 5 mg tablet 5 mg PO DAILY 08/14/22 tamsulosin 0.4 mg capsule 0.4 mg PO DAILY 08/14/22 ferrous sulfate 325 mg (65 mg iron) tablet 325 mg PO DAILY iron supplement 09/13/22 multivitamin 1 tab PO DAILY 09/13/22 pantoprazole 40 mg tablet,delayed release 40 mg PO BID #180 tabs 09/23/22 escitalopram oxalate 10 mg tablet 10 mg PO DAILY mood 90 days #90 tabs 10/14/22 mirtazapine 15 mg tablet (Remeron) 7.5 mg (1/2 x 15 mg) PO QHS sleep #90 tabs 11/04/22 budesonide 1 mg/2 mL suspension for nebulization 1 mg inhalation Q12H lungs 11/15/22 albuterol sulfate 2.5 mg/3 mL (0.083 %) solution for nebulization 2.5 mg (3 mL) inhalation Q4H PRN Sob &/Or Wheezing #540 mL 01/13/23 ipratropium bromide 0.02 % solution for inhalation 2.5 ml inhalation Q6H PRN shortness of breath or wheezing #150 mL 01/13/23 azithromycin 500 mg tablet 500 mg PO DAILY 3 days #3 tabs 03/02/23 guaifenesin 1,200 mg tablet, extended release 12 hr (Mucus Relief ER) 1,200 mg PO BID 10 days #20 tabs 03/02/23 prednisone 20 mg tablet 20 mg PO BID #10 tabs 03/02/23 furosemide 40 mg tablet (Lasix) 40 mg PO DAILY #30 tabs 03/04/23 Hospital Course Summary of Care Provided Minutes Spent on Discharge: 35 Physical Exam Narrative GENERAL: cooperative HEENT: Atraumatic; normocephalic EYES; Anicteric, Normal Conjunctiva NECK; supple, normal thyroid, RESPIRATORY: Diminished to auscultation CARDIOVASCULAR: Regular S1 S2, GI: soft, normoactive bowel sounds, : No Renal angle tenderness; EXTREMITIES: No edema, no clubbing, MUSCULOSKELETAL: no muscle wasting NEURO: Awake; no lateralizing signs. SKIN: No Rash PSYCH; Flat affect Weight / BMI Weight Weight: 109.2 kg Body Mass Index (BMI) 33.5 ABG / Lab / Microbiology Data 03/04/23 07:20 03/04/23 07:20 Laboratory: Laboratory Results - last 24 hr 03/01/23 07:14: Diff Path Review Reviewed 03/03/23 11:46: POC Glucose 347 H 03/03/23 16:04: POC Glucose 335 H 03/03/23 23:04: POC Glucose 363 H 03/04/23 06:34: POC Glucose 424 H 03/04/23 07:20: WBC 6.5, RBC 2.85 L, Hgb 8.2 L, Hct 27.2 L, MCV 95.4 H, MCH 28.8, MCHC 30.1 L, RDW Std Deviation 65.0 H, RDW Coeff of Rafael 18.3 H, Plt Count 218, MPV 10.7, Immature Gran % (Auto) 1.100 H, Neut % (Auto) 90.3 H, Lymph % (Auto) 3.5 L, [place] % (Auto) 5.1, Eos % (Auto) 0.0, Baso % (Auto) 0.0, Absolute Neuts (auto) 5.9, Absolute Lymphs (auto) 0.23 L, Nucleated RBC % 0, DifferentialComment SCANNED, Sodium 138, Potassium 5.0, Chloride 106, Carbon Dioxide 28.0, Anion Gap 4 L, BUN 56 H, Creatinine 1.77 H, Estim Creat Clear Calc 39.59, Est GFR (MDRD) Af Amer 49 L, Est GFR (MDRD) Non-Af 40 L, BUN/Creatinine Ratio 31.6 H, Glucose 422 H, Calcium 8.6 Microbiology: Microbiology 03/01/23 12:45 Stool Stool Occult Blood ([facility]) - Final Occult Blood Positive 02/28/23 19:05 Mucosa - Nasopharyngeal Respiratory Panel (PCR) - Final 02/28/23 12:15 Mucosa - Nasopharyngeal SARS-CoV-2, Influenza & RSV (PCR) - Final D/C Instructions Discharge Diet: Low fat / Low cholesterol and 8 Cup Fluid Restriction Call your doctor if you observe: Fever of 101 or Higher, Shortness of breath, Fainting spells and Chest pain Meaningful Use Info Meaningful Use Diagnoses (Choose all that apply): CHF CHF MEDHAT/ARB ordered at discharge?: No Reason MEDHAT/ARB not ordered?: Hyperkalemia Documented LVEF (%): 40 Discharge Plan Admission Admit Date/Time: 03/03/23 09:51 Attending Provider: Jordan Ortiz Primary Care Provider: Donna Will Consulting Providers: Mable Pritchard Discharge Orders/Prescriptions Prescriptions: New guaifenesin [Mucus Relief ER] 1,200 mg Tablet Extended Release 12hr 1,200 mg PO BID 10 Days Qty: 20 0RF prednisone 20 mg tablet 20 mg PO BID Qty: 10 0RF azithromycin 500 mg tablet 500 mg PO DAILY 3 Days Qty: 3 0RF furosemide [Lasix] 40 mg tablet 40 mg PO DAILY Qty: 30 0RF Continued nitroglycerin [Nitrostat] 0.4 mg tablet, sublingual 0.4 mg SUBLINGUAL Q5M PRN (Reason: chest pain) Qty: 30 0RF Rx Instructions: until response; do not exceed 3 doses per episode multivitamin Tablet 1 tab PO DAILY tamsulosin 0.4 mg capsule 0.4 mg PO DAILY finasteride 5 mg tablet 5 mg PO DAILY ferrous sulfate 325 mg (65 mg iron) tablet 325 mg PO DAILY atorvastatin 40 mg tablet 20 mg PO QHS aspirin 81 mg Tablet,Delayed Release (Dr/Ec) 81 mg PO DAILY budesonide 1 mg/2 mL suspension for nebulization 1 mg inhalation Q12H pantoprazole 40 mg tablet,delayed release (DR/EC) 40 mg PO BID Qty: 180 3RF escitalopram oxalate 10 mg tablet 10 mg PO DAILY 90 Days Qty: 90 3RF mirtazapine [Remeron] 15 mg tablet 7.5 mg PO QHS Qty: 90 1RF ipratropium bromide 0.02 % solution 2.5 ml inhalation Q6H PRN (Reason: shortness of breath or wheezing) Qty: 150 6RF albuterol sulfate 2.5 mg /3 mL (0.083 %) solution for nebulization 2.5 mg inhalation Q4H PRN (Reason: Sob &/Or Wheezing) Qty: 540 3RF Discontinued lisinopril 2.5 mg tablet 2.5 mg PO DAILY Qty: 90 3RF Referrals / Follow Up: Donna Will MD [Primary Care Provider] - Within 1 Week Disposition Disposition (needs filled in before D/C Order can be placed): Home, Self Care Charges/Coding Visit Charges Inpatient E&M: 49397 Disch Hosp >30min 03/04/23 1139 <Electronically signed by Jordan Ortiz MD> Cosigner Signature (if applicable): CC: Dr. Jordan Ortiz MD; Dr. Donna Will MD~ Signed [facility] Work Phone: 1(312) 360-332501-09-2024 Progress note Author Jordan Ortiz [facility] March 04, 2023 11:36am Note Date/Time March 04, 2023 8: 18am [facility] Medical Records Department [address] [place] [address] Progress Note - Hospitalist 03/04/23817 MR#: [id number] Acct: [id number] Name: JAYDON ALONZO Jr. Rep #:[id number] : 1950 72 From: Jordan Ortiz MD PCP: Dr. Donna Will MD Status:ADM IN Location: [place] [address] Reason for Visit Reason for Visit: Diagnoses Anemia, unspecified (03/03/23) Type 2 diabetes mellitus without complications (03/03/23) Hyperkalemia (03/03/23) Heart failure, unspecified (03/03/23) Chronic obstructive pulmonary disease with (acute) exacerbation (03/03/23) Dyspnea, unspecified (03/03/23) Personal history of pulmonary embolism (03/03/23) Personal history of other diseases of the respiratory system (03/03/23) Personal history of other diseases of urinary system (03/03/23) Presence of coronary angioplasty implant and graft (03/03/23) Subjective Subjective Patient responded to diuretic therapy with improvement in breathing. Currently back to his baseline with 4 L of oxygen at rest. Patient to be assessed for possible discharge Objective Data Objective Data Vital Signs: Vital Signs Temp Pulse Resp BP Pulse Ox O2 Del Method O2 Flow Rate 97.8 F 83 17 118/65 97 Nasal Cannula 4 03/04/23 05:30 03/04/23 08:13 03/04/23 08:13 03/04/23 05:30 03/04/23 08:13 03/04/23 08:13 03/04/23 05:30 Oxygen Flow Rate (L/min) 4 Oxygen Delivery Method Nasal Cannula Weight: 109.2 kg Body Mass Index (BMI) 33.5 Intake & Output: Intake and Output for Last 24 Hours 03/02/23 03/03/23 03/04/23 23:59 23:59 23:59 Intake Total 1455 / 1675 1895 / 1895 Output Total 1350 / 1700 1750 / 2900 2099 / 2100 Balance 105 / -25 145 / -1005 -2100 / -2100 Lab / Micro Data 03/04/23 07:20 03/04/23 07:20 Labs: Laboratory Results - last 24 hr 03/01/23 07:14: Diff Path Review Reviewed, Vitamin B12 551 03/03/23 06:36: B-Natriuretic Peptide 593.7 H 03/03/23 11:46: POC Glucose 347 H 03/03/23 16:04: POC Glucose 335 H 03/03/23 23:04: POC Glucose 363 H 03/04/23 06:34: POC Glucose 424 H Micro: Microbiology 03/01/23 12:45 Stool Stool Occult Blood ([facility]) - Final Occult Blood Positive 02/28/23 19:05 Mucosa - Nasopharyngeal Respiratory Panel (PCR) - Final 02/28/23 12:15 Mucosa - Nasopharyngeal SARS-CoV-2, Influenza & RSV (PCR) - Final Radiography Diagnostic Testing: Radiology Impression Chest X-Ray 03/03/23 09:26 IMPRESSION: Improving right pleural effusion and pulmonary vascular congestion. Electronically Signed: Antonio Field MD at 10:05 EST , Rhythm Strip Rhythm Strip: Sinus Rhythm Rate: 82 Ectopy: None Physical Exam Narrative GENERAL: cooperative HEENT: Atraumatic; normocephalic EYES; Anicteric, Normal Conjunctiva NECK; supple, normal thyroid, RESPIRATORY: Diminished to auscultation CARDIOVASCULAR: Regular S1 S2, GI: soft, normoactive bowel sounds, : No Renal angle tenderness; EXTREMITIES: No edema, no clubbing, MUSCULOSKELETAL: no muscle wasting NEURO: Awake; no lateralizing signs. SKIN: No Rash PSYCH; Flat affect Assessment & Plan Assessment/Plan (1) Anemia: QUALIFIERS: Anemia type: unspecified type Qualified Code(s): D64.9 - Anemia, unspecified (2) Acute hyperkalemia: (3) Acute dyspnea: PLAN: Plan Patient is a 71-year-old gentleman admitted with progressive shortness of breathand assessment of acute congestive heart failure made admitted to monitored bed for further management 1. Acute hypoxia secondary to COPD with acute exacerbation ? Patient initial viral respiratory panel came back negative. Patient managed with systemic steroid, azithromycin, supplemental oxygen as well as guaifenesin for his cough ? 03/02/2023; patient remains stable ? 03/03/2023. Plan to discharge patient home the day prior discontinued followingcontinuous dyspnea. 2. Acute on chronic congestive heart failure with reduced ejection fraction ? 2D echo from 11/17/2022 demonstrated EF of 40%. Patient remains euvolemic ? 03/03/2023, given patient dyspnea ordered BMP patient started on Lasix ? 03/04/2023 patient responded to Lasix 3. Anemia ? Patient has microcytosis do suspect patient is anemia contributing to his significant dyspnea,. Patient hemoglobin on admission was 6.7 was transfused 1 unit PRBC. Hemoglobin came up to 7.1 and with patient deemed to be symptomatic an order was given for patient to be transfused with additional 1 unit PRBC. Subsequent monitoring with daily H&H ordered 4. Hyperkalemia ? Patient potassium level on admission was 7.0. Did receive Kayexalate and subsequently admitted to monitored bed for subsequent eval ? Patient was on lisinopril this was discontinued on discharge 5.? Chronic hypoxic respiratory failure ? Secondary to suspected pulmonary fibrosis from prior COVID-19 infection.? Patient currently on supplemental oxygen 6..? 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 Previously treated with apixaban.? Patient did not tolerate apixaban as a result of GI bleed he underwent IVC filter placement on 05/02/2021 7..? Diabetes mellitus type II Managed with diet 8.? Rheumatoid arthritis Patient previously treated with rituximab as outpatient 9.? Non Hodgkin's lymphoma ?Apparently in remission 10.? Coronary artery disease ?With previous PCI of an LAD RCA and mid circumflex lesions 11. BPH with lower urinary obstruction - Patient treated with tamsulosin 12. GERD The patient is on PPI 13. Chronic kidney disease stage IIIb ? Patient kidney function at baseline 14..? Dyslipidemia -Patient is on statin therapy, continued at home dose 15..? Hypertension - Blood pressure controlled, home medications continued with dose adjustment as needed 16. Depression ? Patient is on SSRI 17. DVT prophylaxis ? Bilateral SCD, Time spent in the patient's overall evaluation,decision-making process, review of diagnostic data, adjustment of management, discussion with other providers, nursing nursing and ancillary staff involved in patient's care documentation, 35minutes Charges/Coding Visit Charges Inpatient E&M: 43532 Subs Hosp L2 03/04/23 1136 <Electronically signed by Jordan Ortiz MD> Cosigner Signature (if applicable): CC: ~ Signed [facility] Work Phone: 1(105) 356-786801-08-2024 Progress note Author Jordan Ortiz [facility] March 03, 2023 9:16am Note Date/Time March 03, 2023 9: 03am [facility] Medical Records Department [address] [place] [address] Progress Note - Hospitalist 03/03/23 0903 MR#: [id number] Acct: [id number] Name: CHERIJAYDON Andre Roper Rep #:[id number] : 1950 72 From: Jordan Ortiz MD PCP: Dr. Donna Will MD Status:ADM [facility] Location: [place] [address] Reason for Visit Reason for Visit: Diagnoses Anemia, unspecified (02/28/23) Type 2 diabetes mellitus without complications (02/28/23) Hyperkalemia (02/28/23) Heart failure, unspecified (02/28/23) Chronic obstructive pulmonary disease with (acute) exacerbation (02/28/23) Dyspnea, unspecified (02/28/23) Personal history of pulmonary embolism (02/28/23) Personal history of other diseases of the respiratory system (02/28/23) Personal history of other diseases of urinary system (02/28/23) Presence of coronary angioplasty implant and graft (02/28/23) Subjective Subjective Patient seen plan to discharge patient home the day prior was discontinued afterpatient did experience significant dyspnea at rest. Seen this a.m. Still complains of shortness of breath. H&H remained stable. Objective Data Objective Data Vital Signs: Vital Signs Temp Pulse Resp BP Pulse Ox O2 Del Method O2 Flow Rate 97.5 F L 93 20 H 131/78 H 94 Nasal Cannula 4 03/03/23 08:25 03/03/23 08:25 03/03/23 08:25 03/03/23 08:25 03/03/23 08:25 03/03/23 08:25 03/03/23 08:25 Oxygen Flow Rate (L/min) 4 Oxygen Delivery Method Nasal Cannula Weight: 110.6 kg Body Mass Index (BMI) 34.0 Intake & Output: Intake and Output for Last 24 Hours 03/01/23 03/02/23 03/03/23 23:59 23:59 23:59 Intake Total 626 / 726 1455 / 1675 460 / 460 Output Total 900 / 1250 1350 / 1700 600 / 600 Balance -274 / -524 105 / -25 -140 / -140 Lab / Micro Data 03/03/23 06:36 03/03/23 06:36 Labs: Laboratory Results - last 24 hr 03/02/23 05:59: Differential Comment SCANNED, Anisocytosis 2+, Microcytosis 1+, Macrocytosis 1+ 03/02/23 11:11: POC Glucose 334 H 03/02/23 16:45: POC Glucose 428 H 03/02/23 22:04: POC Glucose 346 H 03/03/23 06:28: POC Glucose 302 H 03/03/23 06:36: WBC 7.1, RBC 2.89 L, Hgb 8.6 L, Hct 27.7 L, MCV 95.8 H, MCH 29.8, MCHC 31.0 L, RDW Std Deviation 67.0 H, RDW Coeff of Rafael 19.0 H, Plt Count 253, MPV 10.8, Immature Gran % (Auto) 0.800, Neut % (Auto) 91.8 H, Lymph % (Auto) 3.5 L, [place] % (Auto) 3.9, Eos % (Auto) 0.0, Baso % (Auto) 0.0, Absolute Neuts (auto) 6.5, Absolute Lymphs (auto) 0.25 L, Nucleated RBC % 0.4, Anisocytosis 2+, Sodium 139, Potassium 5.1, Chloride 110 H, Carbon Dioxide 26.0,Anion Gap 3 L, BUN 51 H, Creatinine 1.57 H, Estim Creat Clear Calc 44.63, Est GFR (MDRD) Af Amer 56 L, Est GFR (MDRD) Non-Af 46 L, BUN/Creatinine Ratio 32.5 H, Glucose 315 H, Calcium 8.9 Micro: Microbiology 03/01/23 12:45 Stool Stool Occult Blood ([facility]) - Final Occult Blood Positive 02/28/23 19:05 Mucosa - Nasopharyngeal Respiratory Panel (PCR) - Final 02/28/23 12:15 Mucosa - Nasopharyngeal SARS-CoV-2, Influenza & RSV (PCR) - Final Rhythm Strip Rhythm Strip: Sinus Rhythm Rate: 82 Ectopy: None Physical Exam Narrative GENERAL: cooperative HEENT: Atraumatic; normocephalic EYES; Anicteric, Normal Conjunctiva NECK; supple, normal thyroid, RESPIRATORY: Diminished to auscultation CARDIOVASCULAR: Regular S1 S2, GI: soft, normoactive bowel sounds, : No Renal angle tenderness; EXTREMITIES: No edema, no clubbing, MUSCULOSKELETAL: no muscle wasting NEURO: Awake; no lateralizing signs. SKIN: No Rash PSYCH; Flat affect Assessment & Plan Assessment/Plan (1) Anemia: QUALIFIERS: Anemia type: unspecified type Qualified Code(s): D64.9 - Anemia, unspecified (2) Acute hyperkalemia: (3) Acute dyspnea: PLAN: Plan Patient is a 71-year-old gentleman admitted with progressive shortness of breathand assessment of acute congestive heart failure made admitted to monitored bed for further management 1. Acute hypoxia secondary to COPD with acute exacerbation ? Patient initial viral respiratory panel came back negative. Patient managed with systemic steroid, azithromycin, supplemental oxygen as well as guaifenesin for his cough ? 03/02/2023; patient remains stable ? 03/03/2023. Plan to discharge patient home the day prior discontinued followingcontinuous dyspnea. 2. Acute on chronic congestive heart failure with reduced ejection fraction ? 2D echo from 11/17/2022 demonstrated EF of 40%. Patient remains euvolemic ? 03/03/2023, given patient dyspnea ordered BMP patient started on Lasix 3. Anemia ? Patient has microcytosis do suspect patient is anemia contributing to his significant dyspnea,. Patient hemoglobin on admission was 6.7 was transfused 1 unit PRBC. Hemoglobin came up to 7.1 and with patient deemed to be symptomatic an order was given for patient to be transfused with additional 1 unit PRBC. Subsequent monitoring with daily H&H ordered 4. Hyperkalemia ? Patient potassium level on admission was 7.0. Did receive Kayexalate and subsequently admitted to monitored bed for subsequent eval ? Patient was on lisinopril this was discontinued on discharge 5.? Chronic hypoxic respiratory failure ? Secondary to suspected pulmonary fibrosis from prior COVID-19 infection.? Patient currently on supplemental oxygen 6..? 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 Previously treated with apixaban.? Patient did not tolerate apixaban as a result of GI bleed he underwent IVC filter placement on 05/02/2021 7..? Diabetes mellitus type II Managed with diet 8.? Rheumatoid arthritis Patient previously treated with rituximab as outpatient 9.? Non Hodgkin's lymphoma ?Apparently in remission 10.? Coronary artery disease ?With previous PCI of an LAD RCA and mid circumflex lesions 11. BPH with lower urinary obstruction - Patient treated with tamsulosin 12. GERD The patient is on PPI 13. Chronic kidney disease stage IIIb ? Patient kidney function at baseline 14..? Dyslipidemia -Patient is on statin therapy, continued at home dose 15..? Hypertension - Blood pressure controlled, home medications continued with dose adjustment as needed 16. Depression ? Patient is on SSRI 17. DVT prophylaxis ? Bilateral SCD, Time spent in the patient's overall evaluation,decision-making process, review of diagnostic data, adjustment of management, discussion with other providers, nursing nursing and ancillary staff involved in patient's care documentation, 50 Minutes Charges/Coding Visit Charges Inpatient E&M: 64415 Subs Hosp L3 03/03/23 0916 <Electronically signed by Jordan Ortiz MD> Cosigner Signature (if applicable): CC: ~ Signed [facility] Work Phone: 1(982) 717-580201-07-2024 Discharge summary Author Jordan Ortiz [facility] March 02, 2023 10:54am Note Date/Time March 02, 2023 10 :52am [facility] Medical Records Department [address] [place], [place] [address] [address] Discharge Summary 03/02/23 1050 MR#: [id number] Acct: [id number] Name: JAYDON ALONZO Jr. Rep #:[id number] : 1950 72 From: Jordan Ortiz MD PCP: Dr. Donna Will MD Status:ADM [place] Location: [place] [address] Providers Date of Admission: 02/28/23 Date of Discharge: 03/02/23 Primary Care Physician: Dr. Donna Will MD Reason For Visit: COPD, ANEMIA, CKD, RT. PLEURAL EFFUSION Diagnosis Discharge Diagnosis (1) Anemia: Status: Acute Code(s): D64.9 - Anemia, unspecified Qualifiers: Anemia type: unspecified type Qualified Code(s): D64.9 - Anemia, unspecified (2) Acute hyperkalemia: Status: Acute Code(s): E87.5 - Hyperkalemia (3) Acute dyspnea: Status: Acute Code(s): R06.00 - Dyspnea, unspecified Plan Patient is a 71-year-old gentleman admitted with progressive shortness of breathand assessment of acute congestive heart failure made admitted to monitored bed for further management 1. Acute hypoxia secondary to COPD with acute exacerbation ? Patient initial viral respiratory panel came back negative. Patient managed with systemic steroid, azithromycin, supplemental oxygen as well as guaifenesin for his cough ? 03/02/2023; patient remains stable 2. Chronic congestive heart failure with reduced ejection fraction ? 2D echo from 11/17/2022 demonstrated EF of 40%. Patient remains euvolemic 3. Anemia ? Patient has microcytosis do suspect patient is anemia contributing to his significant dyspnea,. Patient hemoglobin on admission was 6.7 was transfused 1 unit PRBC. Hemoglobin came up to 7.1 and with patient deemed to be symptomatic an order was given for patient to be transfused with additional 1 unit PRBC. Subsequent monitoring with daily H&H ordered 4. Hyperkalemia ? Patient potassium level on admission was 7.0. Did receive Kayexalate and subsequently admitted to monitored bed for subsequent eval ? Patient was on lisinopril this was discontinued on discharge 5.? Chronic hypoxic respiratory failure ? Secondary to suspected pulmonary fibrosis from prior COVID-19 infection.? Patient currently on supplemental oxygen 6..? 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 Previously treated with apixaban.? Patient did not tolerate apixaban as a result of GI bleed he underwent IVC filter placement on 05/02/2021 7..? Diabetes mellitus type II Managed with diet 8.? Rheumatoid arthritis Patient previously treated with rituximab as outpatient 9.? Non Hodgkin's lymphoma ?Apparently in remission 10.? Coronary artery disease ?With previous PCI of an LAD RCA and mid circumflex lesions 11. BPH with lower urinary obstruction - Patient treated with tamsulosin 12. GERD The patient is on PPI 13. Chronic kidney disease stage IIIb ? Patient kidney function at baseline 14..? Dyslipidemia -Patient is on statin therapy, continued at home dose 15..? Hypertension - Blood pressure controlled, home medications continued with dose adjustment as needed 16. Depression ? Patient is on SSRI 17. DVT prophylaxis ? Bilateral SCD, Time spent in the patient's overall evaluation,decision-making process, review of diagnostic data, adjustment of management, discussion with other providers, nursing nursing and ancillary staff involved in patient's care documentation, 35Minutes Medications at Discharge Home Medications nitroglycerin 0.4 mg sublingual tablet (Nitrostat) 0.4 mg sublingual Q5M PRN chest pain #30 tabs 09/25/20 atorvastatin 40 mg tablet 20 mg PO QHS cholesterol 10/09/21 aspirin 81 mg tablet,delayed release 81 mg PO DAILY 12/31/21 finasteride 5 mg tablet 5 mg PO DAILY 08/14/22 tamsulosin 0.4 mg capsule 0.4 mg PO DAILY 08/14/22 ferrous sulfate 325 mg (65 mg iron) tablet 325 mg PO DAILY iron supplement 09/13/22 multivitamin 1 tab PO DAILY 09/13/22 pantoprazole 40 mg tablet,delayed release 40 mg PO BID #180 tabs 09/23/22 escitalopram oxalate 10 mg tablet 10 mg PO DAILY mood 90 days #90 tabs 10/14/22 mirtazapine 15 mg tablet (Remeron) 7.5 mg (1/2 x 15 mg) PO QHS sleep #90 tabs 11/04/22 budesonide 1 mg/2 mL suspension for nebulization 1 mg inhalation Q12H lungs 11/15/22 albuterol sulfate 2.5 mg/3 mL (0.083 %) solution for nebulization 2.5 mg (3 mL) inhalation Q4H PRN Sob &/Or Wheezing #540 mL 01/13/23 ipratropium bromide 0.02 % solution for inhalation 2.5 ml inhalation Q6H PRN shortness of breath or wheezing #150 mL 01/13/23 azithromycin 500 mg tablet 500 mg PO DAILY 3 days #3 tabs 03/02/23 guaifenesin 1,200 mg tablet, extended release 12 hr (Mucus Relief ER) 1,200 mg PO BID 10 days #20 tabs 03/02/23 prednisone 20 mg tablet 20 mg PO BID #10 tabs 03/02/23 Hospital Course Summary of Care Provided Minutes Spent on Discharge: 35 Physical Exam Narrative GENERAL: cooperative HEENT: Atraumatic; normocephalic EYES; Anicteric, Normal Conjunctiva NECK; supple, normal thyroid, RESPIRATORY: Diminished to auscultation CARDIOVASCULAR: Regular S1 S2, GI: soft, normoactive bowel sounds, : No Renal angle tenderness; EXTREMITIES: No edema, no clubbing, MUSCULOSKELETAL: no muscle wasting NEURO: Awake; no lateralizing signs. SKIN: No Rash PSYCH; Flat affect Weight / BMI Weight Weight: 110.495 kg Body Mass Index (BMI) 34.0 ABG / Lab / Microbiology Data 03/02/23 05:59 03/02/23 05:59 Laboratory: Laboratory Results - last 24 hr 02/28/23 16:05: Blood Type AB POSITIVE, Antibody Screen NEGATIVE, Crossmatch SeeDetail 02/28/23 16:05: Crossmatch See Detail 03/01/23 07:14: Diff Path Review May 03/01/23 11:09: POC Glucose 303 H 03/01/23 16:49: POC Glucose 317 H 03/01/23 22:51: POC Glucose 323 H 03/02/23 05:59: WBC 7.5, RBC 2.98 L, Hgb 8.7 L, Hct 28.5 L, MCV 95.6 H, MCH 29.2, MCHC 30.5 L, RDW Std Deviation 67.8 H, RDW Coeff of Rafael 19.3 H, Plt Count 273, MPV 11.1, Immature Gran % (Auto) 1.100 H, Neut % (Auto) 89.5 H, Lymph % (Auto) 5.3 L, [place] % (Auto) 4.0, Eos % (Auto) 0.0, Baso % (Auto) 0.1, Absolute Neuts (auto) 6.7, Absolute Lymphs (auto) 0.40 L, Nucleated RBC % 0.8, Sodium 139,Potassium 5.1, Chloride 110 H, Carbon Dioxide 26.0, Anion Gap 3 L, BUN 47 H, Creatinine 1.76 H, Estim Creat Clear Calc 39.81, Est GFR (MDRD) Af Amer 49 L, Est GFR (MDRD) Non-Af 41 L, BUN/Creatinine Ratio 26.7 H, Glucose 339 H, Calcium 8.9, Phosphorus 3.8, Magnesium 2.5 03/02/23 06:48: POC Glucose 316 H Microbiology: Microbiology 03/01/23 12:45 Stool Stool Occult Blood ([facility]) - Final Occult Blood Positive 02/28/23 19:05 Mucosa - Nasopharyngeal Respiratory Panel (PCR) - Final 02/28/23 12:15 Mucosa - Nasopharyngeal SARS-CoV-2, Influenza & RSV (PCR) - Final D/C Instructions Discharge Diet: No restrictions Discharge Activity: Return to Normal Activity Call your doctor if you observe: Fever of 101 or Higher, Shortness of breath, Fainting spells and Chest pain Meaningful Use Info Meaningful Use Diagnoses (Choose all that apply): None applicable Discharge Plan Admission Admit Date/Time: 02/28/23 16:42 Attending Provider: Jordan Ortiz Primary Care Provider: Donna Will Consulting Providers: Mable Pritchard Discharge Orders/Prescriptions Prescriptions: New guaifenesin [Mucus Relief ER] 1,200 mg Tablet Extended Release 12hr 1,200 mg PO BID 10 Days Qty: 20 0RF prednisone 20 mg tablet 20 mg PO BID Qty: 10 0RF azithromycin 500 mg tablet 500 mg PO DAILY 3 Days Qty: 3 0RF Continued nitroglycerin [Nitrostat] 0.4 mg tablet, sublingual 0.4 mg SUBLINGUAL Q5M PRN (Reason: chest pain) Qty: 30 0RF Rx Instructions: until response; do not exceed 3 doses per episode multivitamin Tablet 1 tab PO DAILY tamsulosin 0.4 mg capsule 0.4 mg PO DAILY finasteride 5 mg tablet 5 mg PO DAILY ferrous sulfate 325 mg (65 mg iron) tablet 325 mg PO DAILY atorvastatin 40 mg tablet 20 mg PO QHS aspirin 81 mg Tablet,Delayed Release (Dr/Ec) 81 mg PO DAILY budesonide 1 mg/2 mL suspension for nebulization 1 mg inhalation Q12H pantoprazole 40 mg tablet,delayed release (DR/EC) 40 mg PO BID Qty: 180 3RF escitalopram oxalate 10 mg tablet 10 mg PO DAILY 90 Days Qty: 90 3RF mirtazapine [Remeron] 15 mg tablet 7.5 mg PO QHS Qty: 90 1RF ipratropium bromide 0.02 % solution 2.5 ml inhalation Q6H PRN (Reason: shortness of breath or wheezing) Qty: 150 6RF albuterol sulfate 2.5 mg /3 mL (0.083 %) solution for nebulization 2.5 mg inhalation Q4H PRN (Reason: Sob &/Or Wheezing) Qty: 540 3RF Discontinued lisinopril 2.5 mg tablet 2.5 mg PO DAILY Qty: 90 3RF Referrals / Follow Up: Donna Will MD [Primary Care Provider] - Within 1 Week Disposition Disposition (needs filled in before D/C Order can be placed): Home, Self Care Charges/Coding Visit Charges Inpatient E&M: 79332 Disch Hosp >30min 03/02/23 1054 <Electronically signed by Jordan Ortiz MD> Cosigner Signature (if applicable): CC: Dr. Jordan Ortiz MD; Dr. Donna Will MD~ Signed [facility] Work Phone: 1(348) 513-670101-07-2024 Progress note Author [facility] March 02, 2023 10:47am Note Date/Time March 02, 2023 7: 56am [facility] Medical Records Department [address] [place] [address] Progress Note - Hospitalist 03/02/23 0755 MR#: [id number] Acct: [id number] Name: CHERIJAYDON Jr. Rep #:[id number] : 1950 72 From: Jordan Ortiz MD PCP: Dr. Donna Will MD Status:ADM LEONCIO Location: [place] [address] Reason for Visit Reason for Visit: Diagnoses Anemia, unspecified (02/28/23) Type 2 diabetes mellitus without complications (02/28/23) Hyperkalemia (02/28/23) Heart failure, unspecified (02/28/23) Chronic obstructive pulmonary disease with (acute) exacerbation (02/28/23) Dyspnea, unspecified (02/28/23) Personal history of pulmonary embolism (02/28/23) Personal history of other diseases of the respiratory system (02/28/23) Personal history of other diseases of urinary system (02/28/23) Presence of coronary angioplasty implant and graft (02/28/23) Subjective Subjective Patient seen clinical condition improved. Plan is for patient to be assessed for possible discharge Objective Data Objective Data Vital Signs: Vital Signs Temp Pulse Resp BP Pulse Ox O2 Del Method O2 Flow Rate 97.9 F 74 16 121/78 H 99 Nasal Cannula 3 03/02/23 05:00 03/02/23 07:06 03/02/23 07:06 03/02/23 05:00 03/02/23 07:06 03/02/23 07:06 03/02/23 07:06 Oxygen Flow Rate (L/min) 3 Oxygen Delivery Method Nasal Cannula Weight: 110.495 kg Body Mass Index (BMI) 34.0 Intake & Output: Intake and Output for Last 24 Hours 02/28/23 03/01/23 03/02/23 23:59 23:59 23:59 Intake Total 826 / 826 626 / 726 100 / 100 Output Total 200 / 200 900 / 1250 350 / 350 Balance 626 / 626 -274 / -524 -250 / -250 Lab / Micro Data 03/02/23 05:59 03/02/23 05:59 Labs: Laboratory Results - last 24 hr 02/28/23 16:05: Blood Type AB POSITIVE, Antibody Screen NEGATIVE, Crossmatch SeeDetail 02/28/23 16:05: Crossmatch See Detail 03/01/23 07:14: WBC 4.2 L, RBC 2.41 L, Hgb 7.1 L, Hct 23.5 L, MCV 97.5 H, MCH 29.5, MCHC 30.2 L D, RDW Std Deviation 68.9 H, RDW Coeff of Rafael 19.3 H, Plt Count 249, MPV 11.0, Immature Gran % (Auto) 0.900, Neut % (Auto) 84.0 H, Lymph %(Auto) 10.9 L, [place] % (Auto) 4.0, Eos % (Auto) 0.0, Baso % (Auto) 0.2, Absolute Neuts (auto) 3.5, Absolute Lymphs (auto) 0.46 L, Nucleated RBC % 0.7, Diff Path Review June, Platelet Estimate ADEQUATE, Hypochromasia 1+, Anisocytosis 1+, Sodium 139, Potassium 5.1, Chloride 110 H, Carbon Dioxide 23.0, Anion Gap 6, BUN40 H, Creatinine 1.69 H, Estim Creat Clear Calc 41.46, Est GFR (MDRD) Af Amer 51L, Est GFR (MDRD) Non-Af 42 L, BUN/Creatinine Ratio 23.7 H, Glucose 254 H, Calcium 8.8, Ferritin 171, Total Bilirubin 0.60, AST 8 L, ALT 13 L, Alkaline Phosphatase 82, B-Natriuretic Peptide 986.1 H, Total Protein 6.2 L, Albumin 2.9 L, Globulin 3.3, Albumin/Globulin Ratio 0.9, Folate 4.90 03/01/23 11:09: POC Glucose 303 H 03/01/23 16:49: POC Glucose 317 H 03/01/23 22:51: POC Glucose 323 H 03/02/23 05:59: WBC 7.5, RBC 2.98 L, Hgb 8.7 L, Hct 28.5 L, MCV 95.6 H, MCH 29.2, MCHC 30.5 L, RDW Std Deviation 67.8 H, RDW Coeff of Rafael 19.3 H, Plt Count 273, MPV 11.1, Immature Gran % (Auto) 1.100 H, Neut % (Auto) 89.5 H, Lymph % (Auto) 5.3 L, [place] % (Auto) 4.0, Eos % (Auto) 0.0, Baso % (Auto) 0.1, Absolute Neuts (auto) 6.7, Absolute Lymphs (auto) 0.40 L, Nucleated RBC % 0.8, Sodium 139, Potassium 5.1, Chloride 110 H, Carbon Dioxide 26.0, Anion Gap 3 L, BUN 47 H, Creatinine 1.76 H, Estim Creat Clear Calc 39.81, Est GFR (MDRD) Af Amer 49 L, Est GFR (MDRD) Non-Af 41 L, BUN/Creatinine Ratio 26.7 H, Glucose 339 H, Calcium 8.9, Phosphorus 3.8, Magnesium 2.5 03/02/23 06:48: POC Glucose 316 H Micro: Microbiology 03/01/23 12:45 Stool Stool Occult Blood ([facility]) - Final Occult Blood Positive 02/28/23 19:05 Mucosa - Nasopharyngeal Respiratory Panel (PCR) - Final 02/28/23 12:15 Mucosa - Nasopharyngeal SARS-CoV-2, Influenza & RSV (PCR) - Final Rhythm Strip Rhythm Strip: Sinus Rhythm Rate: 82 Ectopy: None Physical Exam Narrative GENERAL: cooperative HEENT: Atraumatic; normocephalic EYES; Anicteric, Normal Conjunctiva NECK; supple, normal thyroid, RESPIRATORY: Diminished to auscultation CARDIOVASCULAR: Regular S1 S2, GI: soft, normoactive bowel sounds, : No Renal angle tenderness; EXTREMITIES: No edema, no clubbing, MUSCULOSKELETAL: no muscle wasting NEURO: Awake; no lateralizing signs. SKIN: No Rash PSYCH; Flat affect Assessment & Plan Assessment/Plan (1) Anemia: QUALIFIERS: Anemia type: unspecified type Qualified Code(s): D64.9 - Anemia, unspecified (2) Acute hyperkalemia: (3) Acute dyspnea: PLAN: Plan Patient is a 71-year-old gentleman admitted with progressive shortness of breathand assessment of acute congestive heart failure made admitted to monitored bed for further management 1. Acute hypoxia secondary to COPD with acute exacerbation ? Patient initial viral respiratory panel came back negative. Patient managed with systemic steroid, azithromycin, supplemental oxygen as well as guaifenesin for his cough ? 03/02/2023; patient remains stable 2. Chronic congestive heart failure with reduced ejection fraction ? 2D echo from 11/17/2022 demonstrated EF of 40%. Patient remains euvolemic 3. Anemia ? Patient has microcytosis do suspect patient is anemia contributing to his significant dyspnea,. Patient hemoglobin on admission was 6.7 was transfused 1 unit PRBC. Hemoglobin came up to 7.1 and with patient deemed to be symptomatic an order was given for patient to be transfused with additional 1 unit PRBC. Subsequent monitoring with daily H&H ordered 4. Hyperkalemia ? Patient potassium level on admission was 7.0. Did receive Kayexalate and subsequently admitted to monitored bed for subsequent eval 5.? Chronic hypoxic respiratory failure ? Secondary to suspected pulmonary fibrosis from prior COVID-19 infection.? Patient currently on supplemental oxygen 6..? 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 Previously treated with apixaban.? Patient did not tolerate apixaban as a result of GI bleed he underwent IVC filter placement on 05/02/2021 7..? Diabetes mellitus type II Managed with diet 8.? Rheumatoid arthritis Patient previously treated with rituximab as outpatient 9.? Non Hodgkin's lymphoma ?Apparently in remission 10.? Coronary artery disease ?With previous PCI of an LAD RCA and mid circumflex lesions 11. BPH with lower urinary obstruction - Patient treated with tamsulosin 12. GERD The patient is on PPI 13. Chronic kidney disease stage IIIb ? Patient kidney function at baseline 14..? Dyslipidemia -Patient is on statin therapy, continued at home dose 15..? Hypertension - Blood pressure controlled, home medications continued with dose adjustment as needed 16. Depression ? Patient is on SSRI 17. DVT prophylaxis ? Bilateral SCD, Time spent in the patient's overall evaluation,decision-making process, review of diagnostic data, adjustment of management, discussion with other providers, nursing nursing and ancillary staff involved in patient's care documentation, 35Minutes Charges/Coding Visit Charges Inpatient E&M: 23574 Subs Hosp L2 03/02/23 1047 <Electronically signed by Jordan Ortiz MD> Cosigner Signature (if applicable): CC: ~ Signed [facility] Work Phone: 1(473) 505-423101-06-2024 Progress note Author Jordan Escobarjaclyn [facility] March 01, 2023 11:48am Note Date/Time March 01, 2023 8: 11am [facility] Medical Records Department [address] [place] [address] Progress Note - Hospitalist 03/01/23 0811 MR#: [id number] Acct: [id number] Name: JAYDON ALONZO Andre Roper Rep #:[id number] : 1950 72 From: Jordan Ortiz MD PCP: Dr. Donna Will MD Status:ADM LEONCIO Location: [place] [address] Reason for Visit Reason for Visit: Diagnoses Anemia, unspecified (02/28/23) Type 2 diabetes mellitus without complications (02/28/23) Hyperkalemia (02/28/23) Heart failure, unspecified (02/28/23) Chronic obstructive pulmonary disease with (acute) exacerbation (02/28/23) Dyspnea, unspecified (02/28/23) Personal history of pulmonary embolism (02/28/23) Personal history of other diseases of the respiratory system (02/28/23) Personal history of other diseases of urinary system (02/28/23) Presence of coronary angioplasty implant and graft (02/28/23) Subjective Subjective Patient is a 71-year-old gentleman admitted with progressive shortness of breathand assessment of acute congestive heart failure made admitted to monitored bed for further management Objective Data Objective Data Vital Signs: Vital Signs Temp Pulse Resp BP Pulse Ox O2 Del Method O2 Flow Rate 97.5 F L 80 16 120/62 92 Nasal Cannula 6 03/01/23 03:45 03/01/23 03:45 03/01/23 03:45 03/01/23 03:45 03/01/23 03:45 03/01/23 07:50 03/01/23 07:50 Oxygen Flow Rate (L/min) 6 Oxygen Delivery Method Nasal Cannula Weight: 110.4 kg Body Mass Index (BMI) 33.9 Intake & Output: Intake and Output for Last 24 Hours 02/27/23 02/28/23 03/01/23 23:59 23:59 23:59 Intake Total 826 / 826 220 / 220 Output Total 200 / 200 500 / 500 Balance 626 / 626 -280 / -280 Lab / Micro Data 03/01/23 07:14 03/01/23 07:14 Labs: Laboratory Results - last 24 hr 02/28/23 12:15: WBC 7.8, RBC 2.33 L, Hgb 6.7 L, Hct 23.5 L, MCV 100.9 H, MCH 28.8, MCHC 28.5 L, RDW Std Deviation 74.5 H, RDW Coeff of Rafael 19.9 H, Plt Count 278, MPV 10.7, Immature Gran % (Auto) 0.900, Neut % (Auto) 74.3 H, Lymph % (Auto) 11.7 L, [place] % (Auto) 8.6, Eos % (Auto) 3.9, Baso % (Auto) 0.6, Absolute Neuts (auto) 5.8, Absolute Lymphs (auto) 0.91, Nucleated RBC % 0.3, Hypochromasia 1+, Anisocytosis 2+, Sodium 141, Potassium 5.6 H, Chloride 112 H, Carbon Dioxide 26.0, Anion Gap 3 L, BUN 35 H, Creatinine 1.75 H, Est GFR (MDRD) Af Amer 49 L, Est GFR (MDRD) Non-Af 41 L, BUN/Creatinine Ratio 20.0, Glucose 181H, Calcium 8.5, Iron 33 L, TIBC 236 L, Iron Saturation 14.0 L, Troponin I High Sens 18, B-Natriuretic Peptide 303.4 H 02/28/23 16:05: Blood Type AB POSITIVE, Antibody Screen NEGATIVE, Crossmatch SeeDetail 02/28/23 16:05: Crossmatch See Detail 02/28/23 19:15: Potassium 7.0 H* 02/28/23 21:21: POC Glucose 290 H 02/28/23 22:00: Potassium 5.6 H 03/01/23 06:39: POC Glucose 239 H Micro: Microbiology 02/28/23 19:05 Mucosa - Nasopharyngeal Respiratory Panel (PCR) - Final 02/28/23 12:15 Mucosa - Nasopharyngeal SARS-CoV-2, Influenza & RSV (PCR) - Final Radiography Diagnostic Testing: Radiology Impression Chest X-Ray 02/28/23 12:20 IMPRESSION: No interval change Electronically Signed: J Carlos Soares MD at 12:46 EST , Chest X-Ray 02/28/23 20:28 IMPRESSION: No change from earlier today. Electronically Signed: Boston Myers MD at 21:40 EST , Rhythm Strip Rhythm Strip: Sinus Rhythm Rate: 82 Ectopy: None Physical Exam Narrative GENERAL: cooperative HEENT: Atraumatic; normocephalic EYES; Anicteric, Normal Conjunctiva NECK; supple, normal thyroid, RESPIRATORY: Diminished to auscultation CARDIOVASCULAR: Regular S1 S2, GI: soft, normoactive bowel sounds, : No Renal angle tenderness; EXTREMITIES: No edema, no clubbing, MUSCULOSKELETAL: no muscle wasting NEURO: Awake; no lateralizing signs. SKIN: No Rash PSYCH; Flat affect Assessment & Plan Assessment/Plan (1) Anemia: QUALIFIERS: Anemia type: unspecified type Qualified Code(s): D64.9 - Anemia, unspecified (2) Acute hyperkalemia: (3) Acute dyspnea: PLAN: Plan Patient is a 71-year-old gentleman admitted with progressive shortness of breathand assessment of acute congestive heart failure made admitted to monitored bed for further management 1. Acute hypoxia secondary to COPD with acute exacerbation ? Patient initial viral respiratory panel came back negative. Patient managed with systemic steroid, azithromycin, supplemental oxygen as well as guaifenesin for his cough 2. Chronic congestive heart failure with reduced ejection fraction ? 2D echo from 11/17/2022 demonstrated EF of 40%. Patient remains euvolemic 3. Anemia ? Patient has microcytosis do suspect patient is anemia contributing to his significant dyspnea,. Patient hemoglobin on admission was 6.7 was transfused 1 unit PRBC. Hemoglobin came up to 7.1 and with patient deemed to be symptomatic an order was given for patient to be transfused with additional 1 unit PRBC. Subsequent monitoring with daily H&H ordered 4. Hyperkalemia ? Patient potassium level on admission was 7.0. Did receive Kayexalate and subsequently admitted to monitored bed for subsequent eval 5.? Chronic hypoxic respiratory failure ? Secondary to suspected pulmonary fibrosis from prior COVID-19 infection.? Patient currently on supplemental oxygen 6..? 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 Previously treated with apixaban.? Patient did not tolerate apixaban as a result of GI bleed he underwent IVC filter placement on 05/02/2021 7..? Diabetes mellitus type II Managed with diet 8.? Rheumatoid arthritis Patient previously treated with rituximab as outpatient 9.? Non Hodgkin's lymphoma ?Apparently in remission 10.? Coronary artery disease ?With previous PCI of an LAD RCA and mid circumflex lesions 11. BPH with lower urinary obstruction - Patient treated with tamsulosin 12. GERD The patient is on PPI 13. Chronic kidney disease stage IIIb ? Patient kidney function at baseline 14..? Dyslipidemia -Patient is on statin therapy, continued at home dose 15..? Hypertension - Blood pressure controlled, home medications continued with dose adjustment as needed 16. Depression ? Patient is on SSRI 17. DVT prophylaxis ? Bilateral SCD, Time spent in the patient's overall evaluation,decision-making process, review of diagnostic data, adjustment of management, discussion with other providers, nursing nursing and ancillary staff involved in patient's care documentation,55 Minutes Charges/Coding Visit Charges Inpatient E&M: 16585 Subs Hosp L3 03/01/23 1148 <Electronically signed by Jordan Ortiz MD> Cosigner Signature (if applicable): CC: ~ Signed [facility] Work Phone: 1(985) 697-761901-05-2024 History and physical note Author Mable Pritchard [facility] February 28, 2023 4:59pm Note Date/Time February 28, 2023 4: 46pm [facility] Medical Records Department [address] [place] [address] H&P Exam - Hospitalist 02/28/23 1642 MR#: [id number] Acct: [id number] Name: JAYDON ALONZO Jr. Rep #:[id number] : 1950 72 From: Mable Pritchard MD PCP: Dr. Donna Will MD Status:ADM LEONCIO Location: [place] [address] HPI - General General Date of Admission: 02/28/23 Date of Service: 02/28/23 Chief Complaint: Gen weakness, SOB HPI Narrative JAYDON ALONZO, is a 72-year-old male history of COPD on 4 L home O2, diabetes, VTE,rheumatoid arthritis, depression, BPH who presented to [facility] 02/28/2023 with increased cough with yellowish sputum and shortness of breath today, no fever hemoptysis, no chest pain. Found to be 83% on 4 L nasal cannula in ED and tachypneic. Chest x-ray with no acute changes. Patient with hemoglobin of 6.7, potassium 5.6 but creatinine at baseline. Patient COVID, flu, RSV negative. Treated as COPD exacerbation but also given his hemoglobin of 6.7 hospitalist contacted for admission for COPD exacerbation and anemia, no acute blood loss noted in ED however patient below transfusion threshold. Patient evaluated bedside and reports that he has been short of breath for 3 weeks and is continued to worsen, does cough things up but has chronic cough so he is unsure how much worse than his baseline. Has been progressively weak as well and today was so weak he had problems with his ADLs, had a little bit of right-sided achy chest pain that resolved after couple of minutes and also an episode where he felt hot earlier and also has some swelling in his legs, reports right leg is always swollen and right now left leg is slightly swollen as well. [facility] Medical History Acute respiratory failure with hypoxia Allergic rhinitis Arthritis Asthma Atherosclerosis of coronary artery of [place] heart without angina pectoris Bleeding tendency Cancer Chronic bronchitis Colon polyp COPD (chronic obstructive pulmonary disease) COVID-19 in immunocompromised patient Diabetes DVT (deep venous thrombosis) (05/01/21) Essential hypertension Former smoker FTT (failure to thrive) in adult Gastritis High cholesterol History of basal cell carcinoma History of pilonidal cyst History of pulmonary embolus (PE) (04/30/21) History of stress test HTN (hypertension) Hyperglycemia Nicotine dependence, cigarettes, uncomplicated Non-Hodgkin lymphoma Obesity On home oxygen therapy Physical debility Pneumonia Positive colorectal cancer screening using Cologuard test RA (rheumatoid arthritis) Rhinovirus Tobacco abuse Type 2 diabetes mellitus Ulcer 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 complications Home Medications nitroglycerin 0.4 mg sublingual tablet (Nitrostat) 0.4 mg sublingual Q5M PRN chest pain #30 tabs 09/25/20 [Rx Last Taken Unknown] atorvastatin 40 mg tablet 20 mg PO QHS cholesterol 10/09/21 [History Last Taken 02/27/23] aspirin 81 mg tablet,delayed release 81 mg PO DAILY 12/31/21 [History Last Taken 02/27/23] finasteride 5 mg tablet 5 mg PO DAILY 08/14/22 [History Last Taken 02/27/23] tamsulosin 0.4 mg capsule 0.4 mg PO DAILY 08/14/22 [History Last Taken 02/27/23] ferrous sulfate 325 mg (65 mg iron) tablet 325 mg PO DAILY iron supplement 09/13/22 [History Last Taken 02/27/23] multivitamin 1 tab PO DAILY 09/13/22 [History Last Taken 02/27/23] pantoprazole 40 mg tablet,delayed release 40 mg PO BID #180 tabs 09/23/22 [Rx Last Taken 02/27/23] escitalopram oxalate 10 mg tablet 10 mg PO DAILY mood 90 days #90 tabs 10/14/22 [Rx Last Taken 02/27/23] mirtazapine 15 mg tablet (Remeron) 7.5 mg (1/2 x 15 mg) PO QHS sleep #90 tabs 11/04/22 [Rx Last Taken 02/27/23] budesonide 1 mg/2 mL suspension for nebulization 1 mg inhalation Q12H lungs 11/15/22 [History Last Taken 02/27/23] albuterol sulfate 2.5 mg/3 mL (0.083 %) solution for nebulization 2.5 mg (3 mL) inhalation Q4H PRN Sob &/Or Wheezing #540 mL 01/13/23 [Rx Last Taken 02/27/23] ipratropium bromide 0.02 % solution for inhalation 2.5 ml inhalation Q6H PRN shortness of breath or wheezing #150 mL 01/13/23 [Rx Last Taken 02/27/23] lisinopril 2.5 mg tablet 2.5 mg PO DAILY #90 tabs 01/15/23 [Rx Last Taken 02/27/23] Allergy/AdvReac Type Severity Reaction Status Date / Time levofloxacin [From Levaquin] AdvReac Intermediate diarrhea, Verified 02/28/23 11:17 dizziness, GI upset, weakness Family History Father Arthritis Bleeding disorder Hypertension Kidney disease Cancer Skin Anemia blood clots Emphysema lung Mother Colon cancer Cancer Lung Cancer Diabetes Brother Thyroid disorder Surgical History H/O cardiac catheterization History of coronary artery stent placement (10/22/13) History of embolic filter insertion History of excision of pilonidal cyst History of heart artery stent History of thymectomy Hx of lymph node excision Presence of IVC filter (04/2021) Status post cardiac surgery Social History household members: spouse Smoking Status: Former smoker Tobacco: How many years used: 55 second hand exposure: Yes alcohol intake: current alcohol intake frequency: holidays/special occasions only substance use type: does not use caffeine: Yes Type: coffee Number of servings: 3 what type of physical activity do you participate in: none frequency: does not exercise seatbelt use: always ROS ROS Narrative General: Had episode of feeling hot earlier HENT: Denies headache, denies stuffy nose, denies sore throat EYES: Denies changes in vision Resp: Has cough and increased shortness of breath Cardiac: Had dull right-sided ache earlier that is since resolved GI: Denies abdominal pain, denies changes in bowel, denies nausea/vomiting : Denies changes in urination Extremity: Has some lower extremity swelling MSK: Generalized weakness Neuro: Denies any numbness/tingling Heme: Denies any bleeding or bruising Skin: Denies rashes Psychiatric: No complaints voiced Vital Signs Vital Signs Vital Signs: 02/28/23 11:08 02/28/23 11:14 02/28/23 11:15 Temperature 97.2 F L 97.2 F L Temperature Source Temporal Temporal Pulse Rate 88 87 Respiratory Rate 22 H 27 H Respiratory Effort Respiratory Depth Respiratory Pattern Blood Pressure 114/73 114/73 Blood Pressure Mean 86 86 Pulse Ox 83 98 97 Oxygen Delivery Method Nasal Cannula Nasal Cannula Nasal Cannula Oxygen Flow Rate (L/min) 4 6 6 02/28/23 11:15 02/28/23 12:04 02/28/23 12:04 Temperature Temperature Source Pulse Rate 81 Respiratory Rate 19 H Respiratory Effort Normal Non-Labored Respiratory Depth Normal Respiratory Pattern Normal Normal Blood Pressure Blood Pressure Mean Pulse Ox 97 Oxygen Delivery Method Nasal Cannula Nasal Cannula Oxygen Flow Rate (L/min) 6 6 02/28/23 12:14 02/28/23 13:00 02/28/23 14:00 Temperature 97.4 F L 97.5 F L 97.4 F L Temperature Source Temporal Temporal Temporal Pulse Rate 90 84 81 Respiratory Rate 23 H 21 H 17 Respiratory Effort Respiratory Depth Respiratory Pattern Blood Pressure 131/91 H 146/68 H 138/74 H Blood Pressure Mean 104 94 95 Pulse Ox 94 99 97 Oxygen Delivery Method Nasal Cannula Nasal Cannula Nasal Cannula Oxygen Flow Rate (L/min) 6 6 6 02/28/23 15:00 02/28/23 11:21 02/28/23 11:30 Temperature 97.4 F L Temperature Source Temporal Pulse Rate 79 84 83 Respiratory Rate 18 20 H 22 H Respiratory Effort Respiratory Depth Respiratory Pattern Blood Pressure 131/70 H 121/52 H Blood Pressure Mean 90 62 Pulse Ox 95 94 96 Oxygen Delivery Method Nasal Cannula Oxygen Flow Rate (L/min) 5 02/28/23 11:40 02/28/23 11:45 02/28/23 11:50 Temperature Temperature Source Pulse Rate 83 83 87 Respiratory Rate 19 H 24 H 26 H Respiratory Effort Respiratory Depth Respiratory Pattern Blood Pressure 124/64 H Blood Pressure Mean 82 Pulse Ox 97 97 96 Oxygen Delivery Method Oxygen Flow Rate (L/min) 02/28/23 12:00 02/28/23 12:10 02/28/23 12:15 Temperature Temperature Source Pulse Rate 82 87 84 Respiratory Rate 21 H 21 H 21 H Respiratory Effort Respiratory Depth Respiratory Pattern Blood Pressure 128/62 H 131/113 H Blood Pressure Mean 83 121 Pulse Ox 97 97 Oxygen Delivery Method Oxygen Flow Rate (L/min) 02/28/23 12:20 02/28/23 12:30 02/28/23 12:40 Temperature Temperature Source Pulse Rate 95 93 87 Respiratory Rate 28 H 20 H 19 H Respiratory Effort Respiratory Depth Respiratory Pattern Blood Pressure 130/72 H Blood Pressure Mean 90 Pulse Ox 95 96 96 Oxygen Delivery Method Oxygen Flow Rate (L/min) 02/28/23 12:45 02/28/23 12:50 02/28/23 13:00 Temperature Temperature Source Pulse Rate 88 87 84 Respiratory Rate 22 H 28 H 18 Respiratory Effort Respiratory Depth Respiratory Pattern Blood Pressure 89/79 L Blood Pressure Mean 83 Pulse Ox 95 97 Oxygen Delivery Method Oxygen Flow Rate (L/min) 02/28/23 13:01 02/28/23 13:10 02/28/23 13:15 Temperature Temperature Source Pulse Rate 83 83 82 Respiratory Rate 18 21 H 20 H Respiratory Effort Respiratory Depth Respiratory Pattern Blood Pressure 136/69 H 140/68 H Blood Pressure Mean 90 89 Pulse Ox 97 99 97 Oxygen Delivery Method Oxygen Flow Rate (L/min) 02/28/23 13:20 02/28/23 13:30 02/28/23 13:40 Temperature Temperature Source Pulse Rate 86 82 82 Respiratory Rate 29 H 18 27 H Respiratory Effort Respiratory Depth Respiratory Pattern Blood Pressure 137/70 H Blood Pressure Mean 91 Pulse Ox 98 99 98 Oxygen Delivery Method Oxygen Flow Rate (L/min) 02/28/23 13:45 02/28/23 13:50 02/28/23 14:00 Temperature Temperature Source Pulse Rate 83 82 Respiratory Rate 25 H 21 H Respiratory Effort Respiratory Depth Respiratory Pattern Blood Pressure 123/86 H 138/64 H Blood Pressure Mean 99 85 Pulse Ox 98 Oxygen Delivery Method Oxygen Flow Rate (L/min) 02/28/23 14:10 02/28/23 14:15 02/28/23 14:20 Temperature Temperature Source Pulse Rate 83 84 81 Respiratory Rate 18 21 H 18 Respiratory Effort Respiratory Depth Respiratory Pattern Blood Pressure 131/67 H Blood Pressure Mean 87 Pulse Ox Oxygen Delivery Method Oxygen Flow Rate (L/min) 02/28/23 14:30 02/28/23 14:40 02/28/23 14:45 Temperature Temperature Source Pulse Rate 83 79 82 Respiratory Rate 22 H 18 26 H Respiratory Effort Respiratory Depth Respiratory Pattern Blood Pressure 141/71 H 125/72 H Blood Pressure Mean 92 88 Pulse Ox 97 96 96 Oxygen Delivery Method Oxygen Flow Rate (L/min) 02/28/23 14:50 02/28/23 15:00 02/28/23 15:10 Temperature Temperature Source Pulse Rate 81 81 Respiratory Rate 21 H 27 H Respiratory Effort Respiratory Depth Respiratory Pattern Blood Pressure 131/70 H Blood Pressure Mean 90 Pulse Ox 95 94 Oxygen Delivery Method Oxygen Flow Rate (L/min) 02/28/23 15:15 02/28/23 15:20 02/28/23 15:30 Temperature Temperature Source Pulse Rate 80 83 82 Respiratory Rate 22 H 21 H 23 H Respiratory Effort Respiratory Depth Respiratory Pattern Blood Pressure 140/73 H 137/69 H Blood Pressure Mean 91 90 Pulse Ox 95 94 97 Oxygen Delivery Method Nasal Cannula Oxygen Flow Rate (L/min) 4 02/28/23 16:15 02/28/23 15:40 02/28/23 15:45 Temperature Temperature Source Pulse Rate 95 82 82 Respiratory Rate 22 H 26 H 24 H Respiratory Effort Respiratory Depth Respiratory Pattern Tachypnea Blood Pressure 137/70 H Blood Pressure Mean 88 Pulse Ox 97 97 Oxygen Delivery Method Oxygen Flow Rate (L/min) 02/28/23 15:50 02/28/23 16:00 02/28/23 16:01 Temperature Temperature Source Pulse Rate 85 98 99 Respiratory Rate 23 H 31 H 20 H Respiratory Effort Respiratory Depth Respiratory Pattern Blood Pressure 112/68 Blood Pressure Mean 83 Pulse Ox 97 80 Oxygen Delivery Method Oxygen Flow Rate (L/min) 02/28/23 16:10 02/28/23 16:15 Temperature Temperature Source Pulse Rate 96 95 Respiratory Rate 27 H 31 H Respiratory Effort Respiratory Depth Respiratory Pattern Blood Pressure 121/71 H Blood Pressure Mean 85 Pulse Ox 93 90 Oxygen Delivery Method Nasal Cannula Oxygen Flow Rate (L/min) Physical Exam Narrative General: Alert, oriented HEENT: Atraumatic, normocephalic Eyes: Anicteric, normal conjunctiva, extraocular movements grossly intact Neck: Supple Respiratory: Slightly increased respiratory effort, diminished at bases with scattered wheezes Cardiovascular: Regular rate GI: Soft, nontender, nondistended Extremities: 1+ bilateral lower extremity edema Musculoskeletal: Moving all extremities Neuro: No overt focal neurological deficits Skin: No rashes appreciated Psych: Cooperative Results Lab / Micro Data 02/28/23 12:15 02/28/23 12:15 Labs: Laboratory Results - last 24 hr 02/28/23 12:15: WBC 7.8, RBC 2.33 L, Hgb 6.7 L, Hct 23.5 L, MCV 100.9 H, MCH 28.8, MCHC 28.5 L, RDW Std Deviation 74.5 H, RDW Coeff of Rafael 19.9 H, Plt Count 278, MPV 10.7, Immature Gran % (Auto) 0.900, Neut % (Auto) 74.3 H, Lymph % (Auto) 11.7 L, [place] % (Auto) 8.6, Eos % (Auto) 3.9, Baso % (Auto) 0.6, Absolute Neuts (auto) 5.8, Absolute Lymphs (auto) 0.91, Nucleated RBC % 0.3, Hypochromasia 1+, Anisocytosis 2+, Sodium 141, Potassium 5.6 H, Chloride 112 H, Carbon Dioxide 26.0, Anion Gap 3 L, BUN 35 H, Creatinine 1.75 H, Est GFR (MDRD) Af Amer 49 L, Est GFR (MDRD) Non-Af 41 L, BUN/Creatinine Ratio 20.0, Glucose 181H, Calcium 8.5, Troponin I High Sens 18 02/28/23 16:05: Crossmatch See Detail Micro: Microbiology 02/28/23 12:15 Mucosa - Nasopharyngeal SARS-CoV-2, Influenza & RSV (PCR) - Final Rhythm Strip Rhythm Strip: Sinus Rhythm Rate: 82 Ectopy: None Imagaing Radiology Impression Chest X-Ray 02/28/23 12:20 IMPRESSION: No interval change Electronically Signed: J Carlos Soares MD at 12:46 EST Reading Location ID and State: [id number] / [place] , Service support , Assessment & Plan Assessment/Plan (1) COPD exacerbation: (2) Type 2 diabetes mellitus: (3) History of pulmonary embolus (PE): (4) History of coronary artery stent placement: (5) History of chronic kidney disease: (6) History of COPD: (7) Heart failure: (8) Anemia: (9) Acute hyperkalemia: (10) Acute dyspnea: PLAN: Plan # Acute on chronic hypoxia secondary to acute exacerbation of COPD in setting ofchronic COPD/chronic hypoxic respiratory failure with 4 L of O2 at baseline -83% on 4L NC initially in ED and tachypneic -CXR no acute change -Has had cough with productive sputum -DuoNebs, steroids -Improving after nebulizer treatments -Azithromycin -Incentive spirometry -Mucinex -COVID, flu, RSV negative, will check full viral panel -Does also feel he has some swelling in his legs, had borderline EF back in October, will also check BNP #Macrocytic Anemia -Hemoglobin 6.7 on presentation, baseline typically in 7 range and was 7.4 in December, not a significant decrease but still below threshold for transfusion -Will transfuse 1 unit and recheck -Will check FOBT -Will check iron panel, B12, folate #Hyperkalemia -Kayexalate -Received aerosols -Will recheck -Hold MEDHAT #Hx CAD -continue home meds #Hx VTE -Does not appear to be on anticoagulation, suspect due to his anemia and historyof GI bleed -Per documentation previously had IVC filter in 2021 -Follows with Dr. Galeana on outpatient basis #GERD -Continue PPI #CKDIIIb # BPH -Continue home medications #Type 2 diabetes mellitus -Glucose checks and sliding scale insulin # Depression -Continue home medications #DVT ppx: SCDs Mable Pritchard MD Charges/Coding Visit Charges Inpatient E&M: 96645 Init Hosp L2 02/28/23 6318 <Electronically signed by Mable Pritchard MD> Cosigner Signature (if applicable): CC: Dr. Donna Will MD; Dr. Mable Pritchard MD~ Signed [facility] Work Phone: [phone] Discharge summary Author Dwain Nowak [facility] February 28, 2023 4:16pm Note Date/Time February 28, 2023 11 :58am [facility] Medical Records Department [address] [place] [address] Emergency Department Summary 02/28/23 MR#: [id number] Acct: [id number] Name: JAYDON ALONZO Jr. Rep #:[id number] : 1950 72 From: Dwain Nowak MD PCP: Dr. Donna Will MD Status:REG ER Location: ED HPI History of Present Illness Chief Complaint: Shortness of Breath Detail of Chief Complaint: Cough with yellow sputum. Informant: patient Onset/Context/Timing Context: gradual Timing: Continuous Current Severity: Mild Maximum Severity: Mild Worsened by: Coughing Relieved by: Rest and Oxygen Associated Symptoms cough and yellow sputum Chest Pain: Positive for None Narrative Narrative: 72-year-old male history of COPD on 4 L of oxygen. Prior DVT. Diabetes and anemia with chronic kidney disease. States he had a cough of yellowish sputum shortness of breath today. No fever. No hemoptysis. No left-sided chest pain. No vomiting. PE Risk Factors: Negative for Cancer, OCP + Smoking + > 35, Prior DVT or PE, Recent immobilization, Recent surgery or Recent travel Prior similar symptoms: Yes Recent Illness/Hospitalization: No PFSH PFSH Medical History Acute respiratory failure with hypoxia Allergic rhinitis Arthritis Asthma Atherosclerosis of coronary artery of [place] heart without angina pectoris Bleeding tendency Cancer Chronic bronchitis Colon polyp COPD (chronic obstructive pulmonary disease) COVID-19 in immunocompromised patient Diabetes DVT (deep venous thrombosis) (05/01/21) Essential hypertension Former smoker FTT (failure to thrive) in adult Gastritis High cholesterol History of basal cell carcinoma History of pilonidal cyst History of pulmonary embolus (PE) (04/30/21) History of stress test HTN (hypertension) Hyperglycemia Nicotine dependence, cigarettes, uncomplicated Non-Hodgkin lymphoma Obesity On home oxygen therapy Physical debility Pneumonia Positive colorectal cancer screening using Cologuard test RA (rheumatoid arthritis) Rhinovirus Tobacco abuse Type 2 diabetes mellitus Ulcer 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 complications Home Medications nitroglycerin 0.4 mg sublingual tablet (Nitrostat) 0.4 mg sublingual Q5M PRN chest pain #30 tabs 09/25/20 [Rx Last Taken Unknown] atorvastatin 40 mg tablet 20 mg PO QHS cholesterol 10/09/21 [History Last Taken 02/27/23] aspirin 81 mg tablet,delayed release 81 mg PO DAILY 12/31/21 [History Last Taken 02/27/23] finasteride 5 mg tablet 5 mg PO DAILY 08/14/22 [History Last Taken 02/27/23] tamsulosin 0.4 mg capsule 0.4 mg PO DAILY 08/14/22 [History Last Taken 02/27/23] ferrous sulfate 325 mg (65 mg iron) tablet 325 mg PO DAILY iron supplement 09/13/22 [History Last Taken 02/27/23] multivitamin 1 tab PO DAILY 09/13/22 [History Last Taken 02/27/23] pantoprazole 40 mg tablet,delayed release 40 mg PO BID #180 tabs 09/23/22 [Rx Last Taken 02/27/23] escitalopram oxalate 10 mg tablet 10 mg PO DAILY mood 90 days #90 tabs 10/14/22 [Rx Last Taken 02/27/23] mirtazapine 15 mg tablet (Remeron) 7.5 mg (1/2 x 15 mg) PO QHS sleep #90 tabs 11/04/22 [Rx Last Taken 02/27/23] budesonide 1 mg/2 mL suspension for nebulization 1 mg inhalation Q12H lungs 11/15/22 [History Last Taken 02/27/23] albuterol sulfate 2.5 mg/3 mL (0.083 %) solution for nebulization 2.5 mg (3 mL) inhalation Q4H PRN Sob &/Or Wheezing #540 mL 01/13/23 [Rx Last Taken 02/27/23] ipratropium bromide 0.02 % solution for inhalation 2.5 ml inhalation Q6H PRN shortness of breath or wheezing #150 mL 01/13/23 [Rx Last Taken 02/27/23] lisinopril 2.5 mg tablet 2.5 mg PO DAILY #90 tabs 01/15/23 [Rx Last Taken 02/27/23] Allergy/AdvReac Type Severity Reaction Status Date / Time levofloxacin [From Levaquin] AdvReac Intermediate diarrhea, Verified 02/28/23 11:17 dizziness, GI upset, weakness Family History Father Arthritis Bleeding disorder Hypertension Kidney disease Cancer Skin Anemia blood clots Emphysema lung Mother Colon cancer Cancer Lung Cancer Diabetes Brother Thyroid disorder Surgical History H/O cardiac catheterization History of coronary artery stent placement (10/22/13) History of embolic filter insertion History of excision of pilonidal cyst History of heart artery stent History of thymectomy Hx of lymph node excision Presence of IVC filter (04/2021) Status post cardiac surgery Social History household members: spouse Smoking Status: Former smoker Tobacco: How many years used: 55 second hand exposure: Yes alcohol intake: current alcohol intake frequency: holidays/special occasions only substance use type: does not use caffeine: Yes Type: coffee Number of servings: 3 what type of physical activity do you participate in: none frequency: does not exercise seatbelt use: always ROS ROS ED ROS Narrative Cough. Shortness of breath. Yellow sputum. Review of Systems ROS Unobtainable: Denies due to encephalopathy Constitutional Constitutional ED: Denies chills or fever(s) Eyes Eyes: Denies blurry vision ENT ENT ED: Denies ear pain Cardiovascular Cardiovascular: Denies palpitations or racing heartbeat Respiratory/Chest Respiratory/Chest: Reports cough and dyspnea Gastrointestinal Gastrointestinal: Denies abdominal pain, constipation, diarrhea, melena, nausea or vomiting Genitourinary Genitourinary ED: Denies dysuria or hematuria Musculoskeletal Musculoskeletal: Denies arthralgias or back pain Integumentary Denies abscess or Abrasions Neurologic Neurologic: Denies headache(s) Psychiatric Psychiatric: Denies anxiety Endocrine Endocrinology: Denies cold intolerance Hematologic/Lymphatic Hematologic/Lymphatic: Denies easy bleeding, easy bruising or lymphadenopathy Allergic/Immunologic Allergic/Immunologic ED: Denies mouth swelling, tongue swelling or urticaria EXAM Physical Exam Narrative Exam Narrative: 69-year-old male vital signs stable except his pulse ox is 83% on his normal 4 L. 98% on 6 L. He is hypoxic. HEENT exam unremarkable. Moist mucous membranes. Neck nontender no JVD. No lymphadenopathy. Lungs few scattered wheezes. No rales or rhonchi. Prolonged expiratory phase. Equal symmetrical. Heart regular rhythm rate about 85 no murmur. Chest wall nontender. Prior well-healed sternotomy. Ribs nontender. No crepitance. Abdomen soft nontender. Moving all 4 extremities. 1+ pitting edema both lower extremities which he states is chronic. Neurologically is awake and alert with no focal motor deficits. Const Vital Signs: 02/28/23 11:08 02/28/23 11:14 02/28/23 11:15 Temperature 97.2 F L 97.2 F L Temperature Source Temporal Temporal Pulse Rate 88 87 Respiratory Rate 22 H 27 H Respiratory Effort Respiratory Depth Respiratory Pattern Blood Pressure 114/73 114/73 Blood Pressure Mean 86 86 Pulse Ox 83 98 97 Oxygen Delivery Method Nasal Cannula Nasal Cannula Nasal Cannula Oxygen Flow Rate (L/min) 4 6 6 02/28/23 11:15 02/28/23 12:04 02/28/23 12:04 Temperature Temperature Source Pulse Rate 81 Respiratory Rate 19 H Respiratory Effort Normal Non-Labored Respiratory Depth Normal Respiratory Pattern Normal Normal Blood Pressure Blood Pressure Mean Pulse Ox 97 Oxygen Delivery Method Nasal Cannula Nasal Cannula Oxygen Flow Rate (L/min) 6 6 02/28/23 12:14 02/28/23 13:00 02/28/23 14:00 Temperature 97.4 F L 97.5 F L 97.4 F L Temperature Source Temporal Temporal Temporal Pulse Rate 90 84 81 Respiratory Rate 23 H 21 H 17 Respiratory Effort Respiratory Depth Respiratory Pattern Blood Pressure 131/91 H 146/68 H 138/74 H Blood Pressure Mean 104 94 95 Pulse Ox 94 99 97 Oxygen Delivery Method Nasal Cannula Nasal Cannula Nasal Cannula Oxygen Flow Rate (L/min) 6 6 6 02/28/23 15:00 02/28/23 11:21 02/28/23 11:30 Temperature 97.4 F L Temperature Source Temporal Pulse Rate 79 84 83 Respiratory Rate 18 20 H 22 H Respiratory Effort Respiratory Depth Respiratory Pattern Blood Pressure 131/70 H 121/52 H Blood Pressure Mean 90 62 Pulse Ox 95 94 96 Oxygen Delivery Method Nasal Cannula Oxygen Flow Rate (L/min) 5 02/28/23 11:40 02/28/23 11:45 02/28/23 11:50 Temperature Temperature Source Pulse Rate 83 83 87 Respiratory Rate 19 H 24 H 26 H Respiratory Effort Respiratory Depth Respiratory Pattern Blood Pressure 124/64 H Blood Pressure Mean 82 Pulse Ox 97 97 96 Oxygen Delivery Method Oxygen Flow Rate (L/min) 02/28/23 12:00 02/28/23 12:10 02/28/23 12:15 Temperature Temperature Source Pulse Rate 82 87 84 Respiratory Rate 21 H 21 H 21 H Respiratory Effort Respiratory Depth Respiratory Pattern Blood Pressure 128/62 H 131/113 H Blood Pressure Mean 83 121 Pulse Ox 97 97 Oxygen Delivery Method Oxygen Flow Rate (L/min) 02/28/23 12:20 02/28/23 12:30 02/28/23 12:40 Temperature Temperature Source Pulse Rate 95 93 87 Respiratory Rate 28 H 20 H 19 H Respiratory Effort Respiratory Depth Respiratory Pattern Blood Pressure 130/72 H Blood Pressure Mean 90 Pulse Ox 95 96 96 Oxygen Delivery Method Oxygen Flow Rate (L/min) 02/28/23 12:45 02/28/23 12:50 02/28/23 13:00 Temperature Temperature Source Pulse Rate 88 87 84 Respiratory Rate 22 H 28 H 18 Respiratory Effort Respiratory Depth Respiratory Pattern Blood Pressure 89/79 L Blood Pressure Mean 83 Pulse Ox 95 97 Oxygen Delivery Method Oxygen Flow Rate (L/min) 02/28/23 13:01 02/28/23 13:10 02/28/23 13:15 Temperature Temperature Source Pulse Rate 83 83 82 Respiratory Rate 18 21 H 20 H Respiratory Effort Respiratory Depth Respiratory Pattern Blood Pressure 136/69 H 140/68 H Blood Pressure Mean 90 89 Pulse Ox 97 99 97 Oxygen Delivery Method Oxygen Flow Rate (L/min) 02/28/23 13:20 02/28/23 13:30 02/28/23 13:40 Temperature Temperature Source Pulse Rate 86 82 82 Respiratory Rate 29 H 18 27 H Respiratory Effort Respiratory Depth Respiratory Pattern Blood Pressure 137/70 H Blood Pressure Mean 91 Pulse Ox 98 99 98 Oxygen Delivery Method Oxygen Flow Rate (L/min) 02/28/23 13:45 02/28/23 13:50 02/28/23 14:00 Temperature Temperature Source Pulse Rate 83 82 Respiratory Rate 25 H 21 H Respiratory Effort Respiratory Depth Respiratory Pattern Blood Pressure 123/86 H 138/64 H Blood Pressure Mean 99 85 Pulse Ox 98 Oxygen Delivery Method Oxygen Flow Rate (L/min) 02/28/23 14:10 02/28/23 14:15 02/28/23 14:20 Temperature Temperature Source Pulse Rate 83 84 81 Respiratory Rate 18 21 H 18 Respiratory Effort Respiratory Depth Respiratory Pattern Blood Pressure 131/67 H Blood Pressure Mean 87 Pulse Ox Oxygen Delivery Method Oxygen Flow Rate (L/min) 02/28/23 14:30 02/28/23 14:40 02/28/23 14:45 Temperature Temperature Source Pulse Rate 83 79 82 Respiratory Rate 22 H 18 26 H Respiratory Effort Respiratory Depth Respiratory Pattern Blood Pressure 141/71 H 125/72 H Blood Pressure Mean 92 88 Pulse Ox 97 96 96 Oxygen Delivery Method Oxygen Flow Rate (L/min) 02/28/23 14:50 02/28/23 15:00 02/28/23 15:10 Temperature Temperature Source Pulse Rate 81 81 Respiratory Rate 21 H 27 H Respiratory Effort Respiratory Depth Respiratory Pattern Blood Pressure 131/70 H Blood Pressure Mean 90 Pulse Ox 95 94 Oxygen Delivery Method Oxygen Flow Rate (L/min) 02/28/23 15:15 02/28/23 15:20 02/28/23 15:30 Temperature Temperature Source Pulse Rate 80 83 82 Respiratory Rate 22 H 21 H 23 H Respiratory Effort Respiratory Depth Respiratory Pattern Blood Pressure 140/73 H 137/69 H Blood Pressure Mean 91 90 Pulse Ox 95 94 97 Oxygen Delivery Method Nasal Cannula Oxygen Flow Rate (L/min) 4 Positive well nourished and well developed; Negative for cachectic, contracturesor unkempt General Appearance ED: well developed and NAD; Negative for unkempt, cachectic, contractures or pallor Nutritional Appearance: Negative for cachectic HEENT Reports moist mucous membranes; Denies dry mucous membranes atraumatic; Negative for trauma or tenderness Mouth ED: No dry mucous membranes Mouth: No dry mucous membranes Eyes PERRL and EOMs intact bilaterally General Eye ED: Negative for pale conjunctiva or scleral icterus Neck no lymphadenopathy, supple, no meningeal signs and no JVD General: Negative for tenderness Lymph Lymphatic: Negative for other Resp normal respiratory effort and No clear to auscultation bilaterally Resp Narrative: Prolonged expiratory phase. Auscultation: wheezes Cardio regular rate, regular rhythm, S1 normal heart sound, S2 normal heart sound and no murmurs Rate: Negative for bradycardia or tachycardic GI non-tender, non-distended and no masses Auscultation: normoactive bowel sounds Palpation: soft; Negative for tender or guarding Back/Spine no CVA tenderness and normal to inspection General Back: Negative for CVA tenderness or tenderness Extremity Negative for normal to inspection Extremity Narrative: Bilateral lower extremity edema. 1+ pitting. No cords. No calf tenderness. General Extremety ED: Yes edema; Negative for tenderness General Extremity: edema Neuro oriented x3 and CN's II-XII intact bilaterally Sensorium / Orientation: alert, oriented to person, oriented to place and oriented to time; Negative for orientation impaired, confused, lethargic or stuporous Motor Exam: strength 5/5 throughout Psych mental status grossly normal Appearance: Negative for unkempt Attitude: No agitated and No other Mood & Affect: Negative for depressed, anxious or tearful Thought Process: normal thought process Skin no wounds General Skin Exam: Negative for jaundice or pallor Lesions: no lesions Rashes: no rashes Trauma: Negative for abrasion or laceration MDM MDM MDM Narrative Medical decision making narrative: 72-year-old male extensive past medical history including COPD, CAD and diabeteswith anemia and kidney disease. Complains shortness of breath with yellow sputum. Cardiac respiratory workup with COVID and flu testing. Repeat exam patient resting comfortably at 3:50 PM. He has needed blood transfusions before for internal bleeding. He is on no blood thinners besides aspirin. He has not noticed any melanotic stool. I will type and cross him for2 units and transfuse him 1 unit after speaking with the hospitalist about admission. History & Record Review Discussion w/independent historian: Patient Additional record(s) reviewed:: Prior inpatient record, Prior outpatient record,Prior ED visit and Prior labs Lab Data Attestation: I reviewed the patient's lab results. Lab results narrative: CBC shows a white count of 7.8. H&H is 6.7 and 23.5 Platelets 278. Chemistries show a potassium of 5.6. Gap of 3.BUN 35 creatinine 1.75. Glucose 181. Troponin is 18. Chest x-ray shows a chronic right pleural effusion. Labs: Laboratory Results - last 24 hr 02/28/23 12:15 WBC 7.8 RBC 2.33 L Hgb 6.7 L Hct 23.5 L MCV 100.9 H MCH 28.8 MCHC 28.5 L RDW Std Deviation 74.5 H RDW Coeff of Rafael 19.9 H Plt Count 278 MPV 10.7 Immature Gran % (Auto) 0.900 Neut % (Auto) 74.3 H Lymph % (Auto) 11.7 L [place] % (Auto) 8.6 Eos % (Auto) 3.9 Baso % (Auto) 0.6 Absolute Neuts (auto) 5.8 Absolute Lymphs (auto) 0.91 Nucleated RBC % 0.3 Hypochromasia 1+ Anisocytosis 2+ Sodium 141 Potassium 5.6 H Chloride 112 H Carbon Dioxide 26.0 Anion Gap 3 L BUN 35 H Creatinine 1.75 H Est GFR (MDRD) Af Amer 49 L Est GFR (MDRD) Non-Af 41 L BUN/Creatinine Ratio 20.0 Glucose 181 H Calcium 8.5 Troponin I High Sens 18 Radiography Chest X-Ray - ED: 1 View, Read by ED Physician, Heart, Mediastinum, Bony Structures, Chronic Changes and Right Effusion Diagnostic Testing: Clinical Impression(s) from Imaging Studies Chest X-Ray 02/28/23 12:20 IMPRESSION: No interval change Electronically Signed: J Carlos Soares MD at 12:46 EST Reading Location ID and State: [address] [place] [address] , Service support , Chest x-ray, portable, single view shows a chronic right pleural effusion. Priorsternotomy. No acute process. Rhythm Strip Rhythm Strip: Sinus Rhythm Rate: 82 Ectopy: None EKG Initial EKG: Attestation: I personally reviewed and interpreted this EKG as follows: Interpretation: Sinus Rhythm and No Acute Injury Pattern Comments: Sinus rhythm rate 82 no acute signs of SD or ischemia. No acute change from prior EKG from October. Prior EKG tracings: available for review Prior: Unchanged Discharge Plan Dx/Rx/DC Orders Clinical Impression: History of COPD, History of chronic kidney disease, Acute dyspnea, Anemia, Pleural effusion on right, Acute hyperkalemia Disposition Disposition: Acute Care Hospital [facility] What to do if you have Problems For any increased pain, shortness of breath, bleeding, nausea or vomiting, chestpain, or any unexpected problems, contact your Primary Care Provider. Call [facility] ([phone]) or report to the closest Emergency Room. Call 911 if necessary. 02/28/23 1616 <Electronically signed by Dwain Nowak MD> Cosigner Signature (if applicable): CC: Dr. Donna Will MD ~ Signed [facility] Work Phone: [phone] 337-108001-05-2024 Discharge summary Author Dwain Nowak [facility] February 28, 2023 4:16pm Note Date/Time February 28, 2023 11 :58am [facility] Medical Records Department [address] [place] [address] Emergency Department Summary 02/28/23 MR#: [id number] Acct: [id number] Name: JAYDON ALONZO Jr. Rep #:[id number] : 1950 72 From: Dwain Nowak MD PCP: Dr. Donna Will MD Status:REG ER Location: ED HPI History of Present Illness Chief Complaint: Shortness of Breath Detail of Chief Complaint: Cough with yellow sputum. Informant: patient Onset/Context/Timing Context: gradual Timing: Continuous Current Severity: Mild Maximum Severity: Mild Worsened by: Coughing Relieved by: Rest and Oxygen Associated Symptoms cough and yellow sputum Chest Pain: Positive for None Narrative Narrative: 72-year-old male history of COPD on 4 L of oxygen. Prior DVT. Diabetes and anemia with chronic kidney disease. States he had a cough of yellowish sputum shortness of breath today. No fever. No hemoptysis. No left-sided chest pain. No vomiting. PE Risk Factors: Negative for Cancer, OCP + Smoking + > 35, Prior DVT or PE, Recent immobilization, Recent surgery or Recent travel Prior similar symptoms: Yes Recent Illness/Hospitalization: No PFSH PFSH Medical History Acute respiratory failure with hypoxia Allergic rhinitis Arthritis Asthma Atherosclerosis of coronary artery of [place] heart without angina pectoris Bleeding tendency Cancer Chronic bronchitis Colon polyp COPD (chronic obstructive pulmonary disease) COVID-19 in immunocompromised patient Diabetes DVT (deep venous thrombosis) (05/01/21) Essential hypertension Former smoker FTT (failure to thrive) in adult Gastritis High cholesterol History of basal cell carcinoma History of pilonidal cyst History of pulmonary embolus (PE) (04/30/21) History of stress test HTN (hypertension) Hyperglycemia Nicotine dependence, cigarettes, uncomplicated Non-Hodgkin lymphoma Obesity On home oxygen therapy Physical debility Pneumonia Positive colorectal cancer screening using Cologuard test RA (rheumatoid arthritis) Rhinovirus Tobacco abuse Type 2 diabetes mellitus Ulcer 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 complications Home Medications nitroglycerin 0.4 mg sublingual tablet (Nitrostat) 0.4 mg sublingual Q5M PRN chest pain #30 tabs 09/25/20 [Rx Last Taken Unknown] atorvastatin 40 mg tablet 20 mg PO QHS cholesterol 10/09/21 [History Last Taken 02/27/23] aspirin 81 mg tablet,delayed release 81 mg PO DAILY 12/31/21 [History Last Taken 02/27/23] finasteride 5 mg tablet 5 mg PO DAILY 08/14/22 [History Last Taken 02/27/23] tamsulosin 0.4 mg capsule 0.4 mg PO DAILY 08/14/22 [History Last Taken 02/27/23] ferrous sulfate 325 mg (65 mg iron) tablet 325 mg PO DAILY iron supplement 09/13/22 [History Last Taken 02/27/23] multivitamin 1 tab PO DAILY 09/13/22 [History Last Taken 02/27/23] pantoprazole 40 mg tablet,delayed release 40 mg PO BID #180 tabs 09/23/22 [Rx Last Taken 02/27/23] escitalopram oxalate 10 mg tablet 10 mg PO DAILY mood 90 days #90 tabs 10/14/22 [Rx Last Taken 02/27/23] mirtazapine 15 mg tablet (Remeron) 7.5 mg (1/2 x 15 mg) PO QHS sleep #90 tabs 11/04/22 [Rx Last Taken 02/27/23] budesonide 1 mg/2 mL suspension for nebulization 1 mg inhalation Q12H lungs 11/15/22 [History Last Taken 02/27/23] albuterol sulfate 2.5 mg/3 mL (0.083 %) solution for nebulization 2.5 mg (3 mL) inhalation Q4H PRN Sob &/Or Wheezing #540 mL 01/13/23 [Rx Last Taken 02/27/23] ipratropium bromide 0.02 % solution for inhalation 2.5 ml inhalation Q6H PRN shortness of breath or wheezing #150 mL 01/13/23 [Rx Last Taken 02/27/23] lisinopril 2.5 mg tablet 2.5 mg PO DAILY #90 tabs 01/15/23 [Rx Last Taken 02/27/23] Allergy/AdvReac Type Severity Reaction Status Date / Time levofloxacin [From Levaquin] AdvReac Intermediate diarrhea, Verified 02/28/23 11:17 dizziness, GI upset, weakness Family History Father Arthritis Bleeding disorder Hypertension Kidney disease Cancer Skin Anemia blood clots Emphysema lung Mother Colon cancer Cancer Lung Cancer Diabetes Brother Thyroid disorder Surgical History H/O cardiac catheterization History of coronary artery stent placement (10/22/13) History of embolic filter insertion History of excision of pilonidal cyst History of heart artery stent History of thymectomy Hx of lymph node excision Presence of IVC filter (04/2021) Status post cardiac surgery Social History household members: spouse Smoking Status: Former smoker Tobacco: How many years used: 55 second hand exposure: Yes alcohol intake: current alcohol intake frequency: holidays/special occasions only substance use type: does not use caffeine: Yes Type: coffee Number of servings: 3 what type of physical activity do you participate in: none frequency: does not exercise seatbelt use: always ROS ROS ED ROS Narrative Cough. Shortness of breath. Yellow sputum. Review of Systems ROS Unobtainable: Denies due to encephalopathy Constitutional Constitutional ED: Denies chills or fever(s) Eyes Eyes: Denies blurry vision ENT ENT ED: Denies ear pain Cardiovascular Cardiovascular: Denies palpitations or racing heartbeat Respiratory/Chest Respiratory/Chest: Reports cough and dyspnea Gastrointestinal Gastrointestinal: Denies abdominal pain, constipation, diarrhea, melena, nausea or vomiting Genitourinary Genitourinary ED: Denies dysuria or hematuria Musculoskeletal Musculoskeletal: Denies arthralgias or back pain Integumentary Denies abscess or Abrasions Neurologic Neurologic: Denies headache(s) Psychiatric Psychiatric: Denies anxiety Endocrine Endocrinology: Denies cold intolerance Hematologic/Lymphatic Hematologic/Lymphatic: Denies easy bleeding, easy bruising or lymphadenopathy Allergic/Immunologic Allergic/Immunologic ED: Denies mouth swelling, tongue swelling or urticaria EXAM Physical Exam Narrative Exam Narrative: 69-year-old male vital signs stable except his pulse ox is 83% on his normal 4 L. 98% on 6 L. He is hypoxic. HEENT exam unremarkable. Moist mucous membranes. Neck nontender no JVD. No lymphadenopathy. Lungs few scattered wheezes. No rales or rhonchi. Prolonged expiratory phase. Equal symmetrical. Heart regular rhythm rate about 85 no murmur. Chest wall nontender. Prior well-healed sternotomy. Ribs nontender. No crepitance. Abdomen soft nontender. Moving all 4 extremities. 1+ pitting edema both lower extremities which he states is chronic. Neurologically is awake and alert with no focal motor deficits. Const Vital Signs: 02/28/23 11:08 02/28/23 11:14 02/28/23 11:15 Temperature 97.2 F L 97.2 F L Temperature Source Temporal Temporal Pulse Rate 88 87 Respiratory Rate 22 H 27 H Respiratory Effort Respiratory Depth Respiratory Pattern Blood Pressure 114/73 114/73 Blood Pressure Mean 86 86 Pulse Ox 83 98 97 Oxygen Delivery Method Nasal Cannula Nasal Cannula Nasal Cannula Oxygen Flow Rate (L/min) 4 6 6 02/28/23 11:15 02/28/23 12:04 02/28/23 12:04 Temperature Temperature Source Pulse Rate 81 Respiratory Rate 19 H Respiratory Effort Normal Non-Labored Respiratory Depth Normal Respiratory Pattern Normal Normal Blood Pressure Blood Pressure Mean Pulse Ox 97 Oxygen Delivery Method Nasal Cannula Nasal Cannula Oxygen Flow Rate (L/min) 6 6 02/28/23 12:14 02/28/23 13:00 02/28/23 14:00 Temperature 97.4 F L 97.5 F L 97.4 F L Temperature Source Temporal Temporal Temporal Pulse Rate 90 84 81 Respiratory Rate 23 H 21 H 17 Respiratory Effort Respiratory Depth Respiratory Pattern Blood Pressure 131/91 H 146/68 H 138/74 H Blood Pressure Mean 104 94 95 Pulse Ox 94 99 97 Oxygen Delivery Method Nasal Cannula Nasal Cannula Nasal Cannula Oxygen Flow Rate (L/min) 6 6 6 02/28/23 15:00 02/28/23 11:21 02/28/23 11:30 Temperature 97.4 F L Temperature Source Temporal Pulse Rate 79 84 83 Respiratory Rate 18 20 H 22 H Respiratory Effort Respiratory Depth Respiratory Pattern Blood Pressure 131/70 H 121/52 H Blood Pressure Mean 90 62 Pulse Ox 95 94 96 Oxygen Delivery Method Nasal Cannula Oxygen Flow Rate (L/min) 5 02/28/23 11:40 02/28/23 11:45 02/28/23 11:50 Temperature Temperature Source Pulse Rate 83 83 87 Respiratory Rate 19 H 24 H 26 H Respiratory Effort Respiratory Depth Respiratory Pattern Blood Pressure 124/64 H Blood Pressure Mean 82 Pulse Ox 97 97 96 Oxygen Delivery Method Oxygen Flow Rate (L/min) 02/28/23 12:00 02/28/23 12:10 02/28/23 12:15 Temperature Temperature Source Pulse Rate 82 87 84 Respiratory Rate 21 H 21 H 21 H Respiratory Effort Respiratory Depth Respiratory Pattern Blood Pressure 128/62 H 131/113 H Blood Pressure Mean 83 121 Pulse Ox 97 97 Oxygen Delivery Method Oxygen Flow Rate (L/min) 02/28/23 12:20 02/28/23 12:30 02/28/23 12:40 Temperature Temperature Source Pulse Rate 95 93 87 Respiratory Rate 28 H 20 H 19 H Respiratory Effort Respiratory Depth Respiratory Pattern Blood Pressure 130/72 H Blood Pressure Mean 90 Pulse Ox 95 96 96 Oxygen Delivery Method Oxygen Flow Rate (L/min) 02/28/23 12:45 02/28/23 12:50 02/28/23 13:00 Temperature Temperature Source Pulse Rate 88 87 84 Respiratory Rate 22 H 28 H 18 Respiratory Effort Respiratory Depth Respiratory Pattern Blood Pressure 89/79 L Blood Pressure Mean 83 Pulse Ox 95 97 Oxygen Delivery Method Oxygen Flow Rate (L/min) 02/28/23 13:01 02/28/23 13:10 02/28/23 13:15 Temperature Temperature Source Pulse Rate 83 83 82 Respiratory Rate 18 21 H 20 H Respiratory Effort Respiratory Depth Respiratory Pattern Blood Pressure 136/69 H 140/68 H Blood Pressure Mean 90 89 Pulse Ox 97 99 97 Oxygen Delivery Method Oxygen Flow Rate (L/min) 02/28/23 13:20 02/28/23 13:30 02/28/23 13:40 Temperature Temperature Source Pulse Rate 86 82 82 Respiratory Rate 29 H 18 27 H Respiratory Effort Respiratory Depth Respiratory Pattern Blood Pressure 137/70 H Blood Pressure Mean 91 Pulse Ox 98 99 98 Oxygen Delivery Method Oxygen Flow Rate (L/min) 02/28/23 13:45 02/28/23 13:50 02/28/23 14:00 Temperature Temperature Source Pulse Rate 83 82 Respiratory Rate 25 H 21 H Respiratory Effort Respiratory Depth Respiratory Pattern Blood Pressure 123/86 H 138/64 H Blood Pressure Mean 99 85 Pulse Ox 98 Oxygen Delivery Method Oxygen Flow Rate (L/min) 02/28/23 14:10 02/28/23 14:15 02/28/23 14:20 Temperature Temperature Source Pulse Rate 83 84 81 Respiratory Rate 18 21 H 18 Respiratory Effort Respiratory Depth Respiratory Pattern Blood Pressure 131/67 H Blood Pressure Mean 87 Pulse Ox Oxygen Delivery Method Oxygen Flow Rate (L/min) 02/28/23 14:30 02/28/23 14:40 02/28/23 14:45 Temperature Temperature Source Pulse Rate 83 79 82 Respiratory Rate 22 H 18 26 H Respiratory Effort Respiratory Depth Respiratory Pattern Blood Pressure 141/71 H 125/72 H Blood Pressure Mean 92 88 Pulse Ox 97 96 96 Oxygen Delivery Method Oxygen Flow Rate (L/min) 02/28/23 14:50 02/28/23 15:00 02/28/23 15:10 Temperature Temperature Source Pulse Rate 81 81 Respiratory Rate 21 H 27 H Respiratory Effort Respiratory Depth Respiratory Pattern Blood Pressure 131/70 H Blood Pressure Mean 90 Pulse Ox 95 94 Oxygen Delivery Method Oxygen Flow Rate (L/min) 02/28/23 15:15 02/28/23 15:20 02/28/23 15:30 Temperature Temperature Source Pulse Rate 80 83 82 Respiratory Rate 22 H 21 H 23 H Respiratory Effort Respiratory Depth Respiratory Pattern Blood Pressure 140/73 H 137/69 H Blood Pressure Mean 91 90 Pulse Ox 95 94 97 Oxygen Delivery Method Nasal Cannula Oxygen Flow Rate (L/min) 4 Positive well nourished and well developed; Negative for cachectic, contracturesor unkempt General Appearance ED: well developed and NAD; Negative for unkempt, cachectic, contractures or pallor Nutritional Appearance: Negative for cachectic HEENT Reports moist mucous membranes; Denies dry mucous membranes atraumatic; Negative for trauma or tenderness Mouth ED: No dry mucous membranes Mouth: No dry mucous membranes Eyes PERRL and EOMs intact bilaterally General Eye ED: Negative for pale conjunctiva or scleral icterus Neck no lymphadenopathy, supple, no meningeal signs and no JVD General: Negative for tenderness Lymph Lymphatic: Negative for other Resp normal respiratory effort and No clear to auscultation bilaterally Resp Narrative: Prolonged expiratory phase. Auscultation: wheezes Cardio regular rate, regular rhythm, S1 normal heart sound, S2 normal heart sound and no murmurs Rate: Negative for bradycardia or tachycardic GI non-tender, non-distended and no masses Auscultation: normoactive bowel sounds Palpation: soft; Negative for tender or guarding Back/Spine no CVA tenderness and normal to inspection General Back: Negative for CVA tenderness or tenderness Extremity Negative for normal to inspection Extremity Narrative: Bilateral lower extremity edema. 1+ pitting. No cords. No calf tenderness. General Extremety ED: Yes edema; Negative for tenderness General Extremity: edema Neuro oriented x3 and CN's II-XII intact bilaterally Sensorium / Orientation: alert, oriented to person, oriented to place and oriented to time; Negative for orientation impaired, confused, lethargic or stuporous Motor Exam: strength 5/5 throughout Psych mental status grossly normal Appearance: Negative for unkempt Attitude: No agitated and No other Mood & Affect: Negative for depressed, anxious or tearful Thought Process: normal thought process Skin no wounds General Skin Exam: Negative for jaundice or pallor Lesions: no lesions Rashes: no rashes Trauma: Negative for abrasion or laceration MDM MDM MDM Narrative Medical decision making narrative: 72-year-old male extensive past medical history including COPD, CAD and diabeteswith anemia and kidney disease. Complains shortness of breath with yellow sputum. Cardiac respiratory workup with COVID and flu testing. Repeat exam patient resting comfortably at 3:50 PM. He has needed blood transfusions before for internal bleeding. He is on no blood thinners besides aspirin. He has not noticed any melanotic stool. I will type and cross him for2 units and transfuse him 1 unit after speaking with the hospitalist about admission. History & Record Review Discussion w/independent historian: Patient Additional record(s) reviewed:: Prior inpatient record, Prior outpatient record,Prior ED visit and Prior labs Lab Data Attestation: I reviewed the patient's lab results. Lab results narrative: CBC shows a white count of 7.8. H&H is 6.7 and 23.5 Platelets 278. Chemistries show a potassium of 5.6. Gap of 3.BUN 35 creatinine 1.75. Glucose 181. Troponin is 18. Chest x-ray shows a chronic right pleural effusion. Labs: Laboratory Results - last 24 hr 02/28/23 12:15 WBC 7.8 RBC 2.33 L Hgb 6.7 L Hct 23.5 L MCV 100.9 H MCH 28.8 MCHC 28.5 L RDW Std Deviation 74.5 H RDW Coeff of Rafael 19.9 H Plt Count 278 MPV 10.7 Immature Gran % (Auto) 0.900 Neut % (Auto) 74.3 H Lymph % (Auto) 11.7 L [place] % (Auto) 8.6 Eos % (Auto) 3.9 Baso % (Auto) 0.6 Absolute Neuts (auto) 5.8 Absolute Lymphs (auto) 0.91 Nucleated RBC % 0.3 Hypochromasia 1+ Anisocytosis 2+ Sodium 141 Potassium 5.6 H Chloride 112 H Carbon Dioxide 26.0 Anion Gap 3 L BUN 35 H Creatinine 1.75 H Est GFR (MDRD) Af Amer 49 L Est GFR (MDRD) Non-Af 41 L BUN/Creatinine Ratio 20.0 Glucose 181 H Calcium 8.5 Troponin I High Sens 18 Radiography Chest X-Ray - ED: 1 View, Read by ED Physician, Heart, Mediastinum, Bony Structures, Chronic Changes and Right Effusion Diagnostic Testing: Clinical Impression(s) from Imaging Studies Chest X-Ray 02/28/23 12:20 IMPRESSION: No interval change Electronically Signed: J Carlos Soares MD at 12:46 EST Reading Location ID and State: [address] [place] [address] , Service support , Chest x-ray, portable, single view shows a chronic right pleural effusion. Priorsternotomy. No acute process. Rhythm Strip Rhythm Strip: Sinus Rhythm Rate: 82 Ectopy: None EKG Initial EKG: Attestation: I personally reviewed and interpreted this EKG as follows: Interpretation: Sinus Rhythm and No Acute Injury Pattern Comments: Sinus rhythm rate 82 no acute signs of SD or ischemia. No acute change from prior EKG from October. Prior EKG tracings: available for review Prior: Unchanged Discharge Plan Dx/Rx/DC Orders Clinical Impression: History of COPD, History of chronic kidney disease, Acute dyspnea, Anemia, Pleural effusion on right, Acute hyperkalemia Disposition Disposition: Acute Care Hospital [facility] What to do if you have Problems For any increased pain, shortness of breath, bleeding, nausea or vomiting, chestpain, or any unexpected problems, contact your Primary Care Provider. Call [facility] ([phone]) or report to the closest Emergency Room. Call 911 if necessary. 02/28/23 1616 <Electronically signed by Dwain Nowak MD> Cosigner Signature (if applicable): CC: Dr. Donna Will MD ~ Signed [facility] Work Phone: [phone] 530-204009-24-2023 Discharge summary Author Jordan Ortiz [facility] November 17, 2022 11:58am Note Date/Time November 17, 2022 11:53am [facility] Medical Records Department [address] [place] [address] Discharge Summary 11/17/22 1150 MR#: [id number] Acct: [id number] Name: JAYDON ALONZO Jr. Rep #:[id number] : 1950 72 From: Jordan Ortiz MD PCP: Dr. Donna Will MD Status:ADM IN Location: [place] [address] Providers Date of Admission: 11/15/22 Date of Discharge: 11/17/22 Primary Care Physician: Dr. Donna Will MD Reason For Visit: ACUTE ON CHRONIC HYPOXIC RESPIRATORY FAILURE Diagnosis Discharge Diagnosis (1) Acute and chronic respiratory failure with hypoxia: Status: Chronic Code(s): J96.21 - Acute and chronic respiratory failure with hypoxia Plan Patient is a 71-year-old gentleman admitted with progressive shortness of breathand assessment of acute congestive heart failure made admitted to monitored bed for further management 1. Acute hypoxia ? Secondary to acute on chronic congestive heart failure with reduced Patient admitted to monitored bed placed on strict input and output, daily weight, IV diuretics and repeat echo ordered ? 11/17/2022; Patient seen admitted some improvement in overall condition. 2D echo obtained as part of patient's evaluation demonstrated EF of 40% with moderate global hypokinesis of the left ventricle 2. Acute on chronic congestive heart failure with reduced ejection fraction ? Patient managed with diuretics as well as supplemental oxygen. Low-dose lisinopril added to patient's treatment and 2.? COPD exacerbation ? Mild exacerbation bronchodilator treatments in addition to above 3.? Anemia ? Secondary to chronic blood loss anemia. Patient has history of duodenal and colonic angiodysplastic bleeding lesion. With patient deemed to be symptomatic i.e. dyspnea and CHF an order was given for patient to be transfused with 1 unitPRBC 4.? Chronic hypoxic respiratory failure ? Secondary to suspected pulmonary fibrosis from prior COVID-19 infection.? Patient currently on supplemental oxygen 5.? 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 Previously treated with apixaban.? Patient did not tolerate apixaban as a result of GI bleed he underwent IVC filter placement on 05/02/2021 6.? Diabetes mellitus type II Managed with diet 7.? Rheumatoid arthritis Patient previously treated with rituximab as outpatient 8.? Non Hodgkin's lymphoma ?Apparently in remission 9.? Coronary artery disease ?With previous PCI of an LAD RCA and mid circumflex lesions 10.? Dyslipidemia -Patient is on statin therapy, continued at home dose 11.? Hypertension - Blood pressure controlled, home medications continued with dose adjustment as needed 12.? Depression ? Patient is on SSRI 13. BPH ? Patient is on tamsulosin discontinued 14. DVT prophylaxis ? Bilateral SCD, Lovenox discontinued given patient's significant anemia Time spent in the patient's overall evaluation,decision-making process, review of diagnostic data, adjustment of management, discussion with other providers, nursing nursing and ancillary staff involved in patient's care documentation, 35Minutes Medications at Discharge Home Medications nitroglycerin 0.4 mg sublingual tablet (Nitrostat) 0.4 mg sublingual Q5M PRN chest pain #30 tabs 09/25/20 atorvastatin 40 mg tablet 20 mg PO QHS cholesterol 10/09/21 metoprolol tartrate 25 mg tablet 12.5 mg PO DAILY BP 10/09/21 aspirin 81 mg tablet,delayed release 81 mg PO DAILY 12/31/21 ipratropium bromide 0.02 % solution for inhalation 2.5 ml inhalation Q6H PRN shortness of breath or wheezing #150 mL 06/25/22 finasteride 5 mg tablet 5 mg PO DAILY 08/14/22 tamsulosin 0.4 mg capsule 0.4 mg PO DAILY 08/14/22 ferrous sulfate 325 mg (65 mg iron) tablet 325 mg PO TID iron supplement 09/13/22 multivitamin 1 tab PO DAILY 09/13/22 pantoprazole 40 mg tablet,delayed release 40 mg PO BID #180 tabs 09/23/22 sucralfate 1 gram tablet 1 g PO BID #60 tabs 09/23/22 escitalopram oxalate 10 mg tablet 10 mg PO DAILY mood 90 days #90 tabs 10/14/22 albuterol sulfate 2.5 mg/3 mL (0.083 %) solution for nebulization 2.5 mg (3 mL) inhalation Q4H PRN Sob &/Or Wheezing #540 mL 10/21/22 mirtazapine 15 mg tablet (Remeron) 7.5 mg (1/2 x 15 mg) PO QHS sleep #90 tabs 11/04/22 budesonide 1 mg/2 mL suspension for nebulization 1 mg inhalation Q12H lungs 11/15/22 furosemide 40 mg tablet (Lasix) 40 mg PO DAILY #30 tabs 11/17/22 lisinopril 2.5 mg tablet 2.5 mg PO DAILY #30 tabs 11/17/22 Hospital Course Procedures 2-D Echocardiogram Summary of Care Provided Minutes Spent on Discharge: 35 Physical Exam Narrative GENERAL: cooperative HEENT: Atraumatic; normocephalic EYES; Anicteric, Normal Conjunctiva NECK; supple, normal thyroid, RESPIRATORY: Diminished to auscultation CARDIOVASCULAR: Regular S1 S2, GI: soft, normoactive bowel sounds, : No Renal angle tenderness; EXTREMITIES: No edema, no clubbing, MUSCULOSKELETAL: no muscle wasting NEURO: Awake; no lateralizing signs. SKIN: No Rash PSYCH; Flat affect Weight / BMI Weight Weight: 110.5 kg Body Mass Index (BMI) 34.0 ABG / Lab / Microbiology Data 11/17/22 04:15 11/17/22 04:15 Laboratory: Laboratory Results - last 24 hr 11/16/22 11:15: Blood Type AB POSITIVE, Antibody Screen NEGATIVE, Crossmatch SeeDetail 11/16/22 11:27: POC Glucose 235 H 11/16/22 16:21: POC Glucose 217 H 11/16/22 23:22: POC Glucose 185 H 11/17/22 04:15: WBC 7.8, RBC 2.86 L, Hgb 8.1 L, Hct 26.9 L, MCV 94.1 H, MCH 28.3, MCHC 30.1 L, RDW Std Deviation 53.9 H, RDW Coeff of Rafael 15.8 H, Plt Count 240, MPV 10.9, Immature Gran % (Auto) 1.000 H, Neut % (Auto) 60.4, Lymph % (Auto) 19.4, [place] % (Auto) 12.0 H, Eos % (Auto) 6.6 H, Baso % (Auto) 0.6, Absolute Neuts (auto) 4.7, Absolute Lymphs (auto) 1.51, Nucleated RBC % 0.3, Sodium 139, Potassium 4.2, Chloride 104, Carbon Dioxide 33.0 H, Anion Gap 2 L, BUN 26 H, Creatinine 1.65 H, Estim Creat Clear Calc 42.47, Est GFR (MDRD) Af Amer 53 L, Est GFR (MDRD) Non-Af 44 L, BUN/Creatinine Ratio 15.8, Glucose 143 H,Calcium 8.2 L, Phosphorus 3.8, Magnesium 2.1 11/17/22 06:39: POC Glucose 127 H Radiography Diagnostic Testing: Radiology Impression Echocardiogram 11/15/22 20:14 Interpretation Summary The estimated ejection fraction is 40 %. There is moderate global hypokinesis of the left ventricle. There is evidence of diastolic dysfunction. Ordering Physician: Loki Lozoya Referring Physician: Donna Will M.D. Performed By: Nathan Correa RCS D/C Instructions Discharge Diet: 1800 Calorie Control Diet, 8 Cup Fluid Restriction and 2000 mg Sodium Diet Discharge Activity: Return to Normal Activity Call your doctor if you observe: Fever of 101 or Higher, Shortness of breath, Fainting spells and Chest pain Meaningful Use Info Meaningful Use Diagnoses (Choose all that apply): CHF CHF MEDHAT/ARB ordered at discharge?: Yes Documented LVEF (%): 40 Discharge Plan Admission Admit Date/Time: 11/15/22 19:31 Attending Provider: Jordan Ortiz Primary Care Provider: Donna Will Consulting Providers: Loki Lozoya Discharge Orders/Prescriptions Prescriptions: New furosemide [Lasix] 40 mg tablet 40 mg PO DAILY Qty: 30 0RF lisinopril 2.5 mg tablet 2.5 mg PO DAILY Qty: 30 0RF Continued nitroglycerin [Nitrostat] 0.4 mg tablet, sublingual 0.4 mg SUBLINGUAL Q5M PRN (Reason: chest pain) Qty: 30 0RF Rx Instructions: until response; do not exceed 3 doses per episode metoprolol tartrate 25 mg tablet 12.5 mg PO DAILY multivitamin Tablet 1 tab PO DAILY tamsulosin 0.4 mg capsule 0.4 mg PO DAILY finasteride 5 mg tablet 5 mg PO DAILY ferrous sulfate 325 mg (65 mg iron) tablet 325 mg PO TID Patient Comments: two in the morning and one in the evening atorvastatin 40 mg tablet 20 mg PO QHS aspirin 81 mg Tablet,Delayed Release (Dr/Ec) 81 mg PO DAILY budesonide 1 mg/2 mL suspension for nebulization 1 mg inhalation Q12H ipratropium bromide 0.02 % solution 2.5 ml inhalation Q6H PRN (Reason: shortness of breath or wheezing) Qty: 150 6RF pantoprazole 40 mg tablet,delayed release (DR/EC) 40 mg PO BID Qty: 180 3RF sucralfate 1 gram tablet 1 g PO BID Qty: 60 1RF escitalopram oxalate 10 mg tablet 10 mg PO DAILY 90 Days Qty: 90 3RF albuterol sulfate 2.5 mg /3 mL (0.083 %) solution for nebulization 2.5 mg inhalation Q4H PRN (Reason: Sob &/Or Wheezing) Qty: 540 3RF mirtazapine [Remeron] 15 mg tablet 7.5 mg PO QHS Qty: 90 1RF Referrals / Follow Up: Donna Will MD [Primary Care Provider] - Within 1 Week Disposition Disposition (needs filled in before D/C Order can be placed): Home, Self Care Charges/Coding Visit Charges Inpatient E&M: 97021 Disch Hosp >30min 11/17/22 1158 <Electronically signed by Jordan Ortiz MD> Cosigner Signature (if applicable): CC: Dr. Jordan Ortiz MD; Dr. Donna Will MD~ Signed [facility] Work Phone: 1(606) 932-838909-24-2023 Progress note Author Jordan Ortiz [facility] November 17, 2022 10:40am Note Date/Time November 17, 2022 8:32am [facility] Medical Records Department [address] [place] [id number] Progress Note - Hospitalist 11/17/22 0831 MR#: [id number] Acct: [id number] Name: JAYDON ALONZO Jr. Rep #:[id number] : 1950 72 From: Jordan Ortiz MD PCP: Dr. Donna Will MD Status:ADM IN Location: [place] [address] Reason for Visit Reason for Visit: Diagnoses Acute and chronic respiratory failure with hypoxia (11/15/22) Subjective Subjective Patient seen admitted some improvement in overall condition. 2D echo obtained as part of patient's evaluation demonstrated EF of 40% with moderate global hypokinesis of the left ventricle Objective Data Objective Data Vital Signs: Vital Signs Temp Pulse Resp BP Pulse Ox O2 Del Method O2 Flow Rate 97.5 F L 67 20 H 111/49 L 94 Nasal Cannula 4 11/17/22 05:53 11/17/22 05:53 11/17/22 05:53 11/17/22 05:53 11/17/22 05:53 11/17/22 05:53 11/17/22 05:53 Oxygen Flow Rate (L/min) 4 Oxygen Delivery Method Nasal Cannula Weight: 110.5 kg Body Mass Index (BMI) 34.0 Intake & Output: Intake and Output for Last 24 Hours 11/15/22 11/16/22 11/17/22 23:59 23:59 23:59 Intake Total 1060 / 1060 240 / 240 Output Total 2500 / 2500 350 / 350 Balance -1440 / -1440 -110 / -110 Lab / Micro Data 11/17/22 04:15 11/17/22 04:15 Labs: Laboratory Results - last 24 hr 11/16/22 11:15: Blood Type AB POSITIVE, Antibody Screen NEGATIVE, Crossmatch SeeDetail 11/16/22 11:27: POC Glucose 235 H 11/16/22 16:21: POC Glucose 217 H 11/16/22 23:22: POC Glucose 185 H 11/17/22 04:15: WBC 7.8, RBC 2.86 L, Hgb 8.1 L, Hct 26.9 L, MCV 94.1 H, MCH 28.3, MCHC 30.1 L, RDW Std Deviation 53.9 H, RDW Coeff of Rafael 15.8 H, Plt Count 240, MPV 10.9, Immature Gran % (Auto) 1.000 H, Neut % (Auto) 60.4, Lymph % (Auto) 19.4, [place] % (Auto) 12.0 H, Eos % (Auto) 6.6 H, Baso % (Auto) 0.6, Absolute Neuts (auto) 4.7, Absolute Lymphs (auto) 1.51, Nucleated RBC % 0.3, Sodium 139, Potassium 4.2, Chloride 104, Carbon Dioxide 33.0 H, Anion Gap 2 L, BUN 26 H, Creatinine 1.65 H, Estim Creat Clear Calc 42.47, Est GFR (MDRD) Af Amer 53 L, Est GFR (MDRD) Non-Af 44 L, BUN/Creatinine Ratio 15.8, Glucose 143 H,Calcium 8.2 L, Phosphorus 3.8, Magnesium 2.1 11/17/22 06:39: POC Glucose 127 H Radiography Diagnostic Testing: Radiology Impression Echocardiogram 11/15/22 20:14 Interpretation Summary The estimated ejection fraction is 40 %. There is moderate global hypokinesis of the left ventricle. There is evidence of diastolic dysfunction. Ordering Physician: Loki Lozoya Referring Physician: Donna Will M.D. Performed By: Nathan Correa RCS Physical Exam Narrative GENERAL: cooperative HEENT: Atraumatic; normocephalic EYES; Anicteric, Normal Conjunctiva NECK; supple, normal thyroid, RESPIRATORY: Diminished to auscultation CARDIOVASCULAR: Regular S1 S2, GI: soft, normoactive bowel sounds, : No Renal angle tenderness; EXTREMITIES: No edema, no clubbing, MUSCULOSKELETAL: no muscle wasting NEURO: Awake; no lateralizing signs. SKIN: No Rash PSYCH; Flat affect Assessment & Plan Assessment/Plan (1) Acute and chronic respiratory failure with hypoxia: PLAN: Plan Patient is a 71-year-old gentleman admitted with progressive shortness of breathand assessment of acute congestive heart failure made admitted to monitored bed for further management 1. Acute hypoxia ? Secondary to acute on chronic congestive heart failure with preserved ejectionfraction. Echo from 04/23/2021 demonstrated EF of 65%. Patient admitted to monitored bed placed on strict input and output, daily weight, IV diuretics and repeat echo ordered ? 11/17/2022; Patient seen admitted some improvement in overall condition. 2D echo obtained as part of patient's evaluation demonstrated EF of 40% with moderate global hypokinesis of the left ventricle 2.? COPD exacerbation ? Mild exacerbation bronchodilator treatments in addition to above 3.? Anemia ? Secondary to chronic blood loss anemia. Patient has history of duodenal and colonic angiodysplastic bleeding lesion. With patient deemed to be symptomatic i.e. dyspnea and CHF an order was given for patient to be transfused with 1 unitPRBC 4.? Chronic hypoxic respiratory failure ? Secondary to suspected pulmonary fibrosis from prior COVID-19 infection.? Patient currently on supplemental oxygen 5.? 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 Previously treated with apixaban.? Patient did not tolerate apixaban as a result of GI bleed he underwent IVC filter placement on 05/02/2021 6.? Diabetes mellitus type II Managed with diet 7.? Rheumatoid arthritis Patient previously treated with rituximab as outpatient 8.? Non Hodgkin's lymphoma ?Apparently in remission 9.? Coronary artery disease ?With previous PCI of an LAD RCA and mid circumflex lesions 10.? Dyslipidemia -Patient is on statin therapy, continued at home dose 11.? Hypertension - Blood pressure controlled, home medications continued with dose adjustment as needed 12.? Depression ? Patient is on SSRI 13. BPH ? Patient is on tamsulosin discontinued 14. DVT prophylaxis ? Bilateral SCD, Lovenox discontinued given patient's significant anemia Time spent in the patient's overall evaluation,decision-making process, review of diagnostic data, adjustment of management, discussion with other providers, nursing nursing and ancillary staff involved in patient's care documentation, 35Minutes Charges/Coding Visit Charges Inpatient E&M: 18544 Subs Hosp L2 11/17/22 1040 <Electronically signed by Jordan Ortiz MD> Cosigner Signature (if applicable): CC: ~ Signed [facility] Work Phone: 1(985) 295-762309-23-2023 Progress note Author Jordan Ortiz [facility] November 16, 2022 11:02am Note Date/Time November 16, 2022 8:33am [facility] Medical Records Department [address] [place] [address] Progress Note - Hospitalist 11/16/22 0832 MR#: [id number] Acct: [id number] Name: JAYDON ALONZO Jr. Rep #:[id number] : 1950 72 From: Jordan Ortiz MD PCP: Dr. Donna Will MD Status:ADM IN Location: [place] [address] Reason for Visit Reason for Visit: Diagnoses Acute and chronic respiratory failure with hypoxia (11/15/22) Subjective Subjective Patient is a 71-year-old gentleman admitted with progressive shortness of breathand assessment of acute congestive heart failure made admitted to monitored bed for further management Objective Data Objective Data Vital Signs: Vital Signs Temp Pulse Resp BP Pulse Ox O2 Del Method O2 Flow Rate 97.9 F 60 16 101/65 98 Nasal Cannula 4 11/16/22 04:52 11/16/22 04:52 11/16/22 04:52 11/16/22 04:52 11/16/22 04:52 11/16/22 05:43 11/16/22 05:43 Oxygen Flow Rate (L/min) 4 Oxygen Delivery Method Nasal Cannula Weight: 67.6 kg Body Mass Index (BMI) 20.7 Intake & Output: Intake and Output for Last 24 Hours 11/14/22 11/15/22 11/16/22 23:59 23:59 23:59 Intake Total 440 / 440 Output Total 1350 / 1350 Balance -910 / -910 Lab / Micro Data 11/16/22 04:40 11/16/22 04:40 Labs: Laboratory Results - last 24 hr 11/15/22 14:18: WBC 7.3, RBC 2.77 L, Hgb 7.9 L, Hct 26.7 L, MCV 96.4 H, MCH 28.5, MCHC 29.6 L, RDW Std Deviation 54.0 H, RDW Coeff of Rafael 15.8 H, Plt Count 274, MPV 10.9, Immature Gran % (Auto) 1.200 H, Neut % (Auto) 65.2, Lymph % (Auto) 17.9 L, [place] % (Auto) 8.9, Eos % (Auto) 6.0 H, Baso % (Auto) 0.8, Absolute Neuts (auto) 4.8, Absolute Lymphs (auto) 1.31, Nucleated RBC % 0, Sodium 139, Potassium 4.7, Chloride 107, Carbon Dioxide 33.0 H, Anion Gap -1 L, BUN 21 H, Creatinine 1.54 H, Estim Creat Clear Calc 31.52, Est GFR (MDRD) Af Amer 57 L, Est GFR (MDRD) Non-Af 47 L, BUN/Creatinine Ratio 13.6, Glucose 221 H,Calcium 8.5, Troponin I High Sens 17, B-Natriuretic Peptide 298.1 H 11/15/22 20:34: Iron 51 L, TIBC 243 L, Iron Saturation 21.0, Ferritin 111, Troponin I High Sens 15 11/15/22 22:46: POC Glucose 205 H 11/15/22 : Hemoglobin A1c 8.6 H 11/16/22 04:40: WBC 6.9, RBC 2.54 L, Hgb 7.0 L, Hct 24.4 L, MCV 96.1 H, MCH 27.6, MCHC 28.7 L, RDW Std Deviation 53.7 H, RDW Coeff of Rafael 15.8 H, Plt Count 239, MPV 10.4, Sodium 141, Potassium 4.5, Chloride 107, Carbon Dioxide 32.0, Anion Gap 2 L, BUN 21 H, Creatinine 1.41 H, Estim Creat Clear Calc 44.61, Est GFR (MDRD) Af Amer 63, Est GFR (MDRD) Non-Af 52 L, BUN/Creatinine Ratio 14.9, Glucose 194 H, Calcium 8.1 L 11/16/22 06:45: POC Glucose 161 H Radiography Diagnostic Testing: Radiology Impression Chest X-Ray 11/15/22 15:00 IMPRESSION: Bilateral pleural effusions with bibasilar pneumonia/atelectasis Electronically Signed: Antonio Field MD at 16:02 EDT , Physical Exam Narrative GENERAL: cooperative HEENT: Atraumatic; normocephalic EYES; Anicteric, Normal Conjunctiva NECK; supple, normal thyroid, RESPIRATORY: Diminished to auscultation CARDIOVASCULAR: Regular S1 S2, GI: soft, normoactive bowel sounds, : No Renal angle tenderness; EXTREMITIES: No edema, no clubbing, MUSCULOSKELETAL: no muscle wasting NEURO: Awake; no lateralizing signs. SKIN: No Rash PSYCH; Flat affect Assessment & Plan Assessment/Plan (1) Acute and chronic respiratory failure with hypoxia: PLAN: Plan Patient is a 71-year-old gentleman admitted with progressive shortness of breathand assessment of acute congestive heart failure made admitted to monitored bed for further management 1. Acute hypoxia ? Secondary to acute on chronic congestive heart failure with preserved ejectionfraction. Echo from 04/23/2021 demonstrated EF of 65%. Patient admitted to monitored bed placed on strict input and output, daily weight, IV diuretics and repeat echo ordered 2.? COPD exacerbation ? Mild exacerbation bronchodilator treatments in addition to above 3.? Anemia ? Secondary to chronic blood loss anemia. Patient has history of duodenal and colonic angiodysplastic bleeding lesion. With patient deemed to be symptomatic i.e. dyspnea and CHF an order was given for patient to be transfused with 1 unitPRBC 4.? Chronic hypoxic respiratory failure ? Secondary to suspected pulmonary fibrosis from prior COVID-19 infection.? Patient currently on supplemental oxygen 5.? 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 Previously treated with apixaban.? Patient did not tolerate apixaban as a result of GI bleed he underwent IVC filter placement on 05/02/2021 6.? Diabetes mellitus type II Managed with diet 7.? Rheumatoid arthritis Patient previously treated with rituximab as outpatient 8.? Non Hodgkin's lymphoma ?Apparently in remission 9.? Coronary artery disease ?With previous PCI of an LAD RCA and mid circumflex lesions 10.? Dyslipidemia -Patient is on statin therapy, continued at home dose 11.? Hypertension - Blood pressure controlled, home medications continued with dose adjustment as needed 12.? Depression ? Patient is on SSRI 13. BPH ? Patient is on tamsulosin discontinued 14. DVT prophylaxis ? Bilateral SCD, Lovenox discontinued given patient's significant anemia Time spent in the patient's overall evaluation,decision-making process, review of diagnostic data, adjustment of management, discussion with other providers, nursing nursing and ancillary staff involved in patient's care documentation, 55Minutes Charges/Coding Visit Charges Inpatient E&M: 64925 Subs Hosp L3 11/16/22 1102 <Electronically signed by Jordan Ortiz MD> Cosigner Signature (if applicable): CC: ~ Signed [facility] Work Phone: 1(632) 719-594109-22-2023 History and physical note Author Loki Lozoya [facility] November 15, 2022 8:33pm Note Date/Time November 15, 2022 7:11pm [facility] Medical Records Department [address] [facility] [place] [address] H&P Exam - Hospitalist 11/15/22 1905 MR#: [id number] Acct: [id number] Name: JAYDON ALONZO Jr. Rep #:[id number] : 1950 72 From: Loki worthington DO PCP: Dr. Donna Will MD Status:ADM IN Location: [place] [address] HPI - General General Date of Admission: 11/15/22 Date of Service: 11/15/22 Chief Complaint: Acute on chronic hypoxic respiratory failure HPI Narrative JAYDON ALONZO, is a 72 M with history of COPD with chronic hypoxic respiratory failure on home 4 L nasal cannula, previous severe COVID infection with resultant pulmonary fibrosis, CAD s/p stenting, iron deficiency anemia, history of duodenal and colonic angiodysplastic bleeding lesions, CKD stage III, historyof Hodgkin's lymphoma s/p ABVD and radiation in 2000, type 2 diabetes, hypertension and former tobacco use who presented to [facility] ED on 11/13/2022 with worsening dyspnea. Patient seen at bedside in the ED. Sitting comfortably at edge of the bed, conversing normally, no acute distress. No increased work of breathing at rest on his home 4 L nasal cannula, however did notably have dropped his oxygen saturations with conversation. Patient states that he has been having worsening shortness of breath with exertion over the last 1 to 2 weeks at home. Also reports shortness of breath with lying flat. He has had a cough with white sputum production during this time, which is new for him. He is a former smoker, quit in February 2021. He denies any chest painduring this time. Denies any fevers or chills. Denies any notable weight loss or weight gain. Does have history of lymphedema with some leg pain, patient feels that this is stable. Otherwise denies any acute concerns. Vitals in ED notable for oxygen saturations in the high 80s on 4 L nasal cannula, dropped to high 70s to low 80s with minimal exertion, otherwise unremarkable. Labs notable for hemoglobin 7.9, WBC count 7.3, creatinine 1.54, BMP otherwise normal, glucose 221, BNP 298. Chest x-ray showed mild bilateral pulm edema, bilateral pleural effusions of moderate size on right and small on left, bibasilar atelectasis. [facility] Medical History Acute respiratory failure with hypoxia Allergic rhinitis Arthritis Asthma Atherosclerosis of coronary artery of [place] heart without angina pectoris Bleeding tendency Cancer Chronic bronchitis Colon polyp COPD (chronic obstructive pulmonary disease) COVID-19 in immunocompromised patient Diabetes DVT (deep venous thrombosis) (05/01/21) Essential hypertension Former smoker FTT (failure to thrive) in adult Gastritis High cholesterol History of basal cell carcinoma History of pilonidal cyst History of pulmonary embolus (PE) (04/30/21) History of stress test HTN (hypertension) Hyperglycemia Nicotine dependence, cigarettes, uncomplicated Non-Hodgkin lymphoma Obesity On home oxygen therapy Physical debility Pneumonia Positive colorectal cancer screening using Cologuard test RA (rheumatoid arthritis) Rhinovirus Tobacco abuse Type 2 diabetes mellitus Ulcer 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 complications Home Medications nitroglycerin 0.4 mg sublingual tablet (Nitrostat) 0.4 mg sublingual Q5M PRN chest pain #30 tabs 09/25/20 [Rx Last Taken Unknown] atorvastatin 40 mg tablet 20 mg PO QHS cholesterol 10/09/21 [History Last Taken 12/07/21] metoprolol tartrate 25 mg tablet 12.5 mg PO BID BP 10/09/21 [History Last Taken 12/08/21] aspirin 81 mg tablet,delayed release 81 mg PO DAILY 12/31/21 [History Last Taken Unknown] ipratropium bromide 0.02 % solution for inhalation 2.5 ml inhalation Q6H PRN shortness of breath or wheezing #150 mL 06/25/22 [Rx Last Taken Unknown] finasteride 5 mg tablet 5 mg PO DAILY 08/14/22 [History Last Taken Unknown] tamsulosin 0.4 mg capsule 0.4 mg PO DAILY 08/14/22 [History Last Taken Unknown] ferrous sulfate 325 mg (65 mg iron) tablet 325 mg PO TID iron supplement 09/13/22 [History Last Taken Unknown] multivitamin 1 tab PO DAILY 09/13/22 [History Last Taken Unknown] pantoprazole 40 mg tablet,delayed release 40 mg PO BID #180 tabs 09/23/22 [Rx Last Taken Unknown] sucralfate 1 gram tablet 1 g PO BID #60 tabs 09/23/22 [Rx Last Taken Unknown] escitalopram oxalate 10 mg tablet 10 mg PO DAILY mood 90 days #90 tabs 10/14/22 [Rx Last Taken Unknown] albuterol sulfate 2.5 mg/3 mL (0.083 %) solution for nebulization 2.5 mg (3 mL) inhalation Q4H PRN Sob &/Or Wheezing #540 mL 10/21/22 [Rx Last Taken Unknown] mirtazapine 15 mg tablet (Remeron) 7.5 mg (1/2 x 15 mg) PO QHS sleep #90 tabs 11/04/22 [Rx Last Taken Unknown] budesonide 1 mg/2 mL suspension for nebulization 1 mg inhalation TID 11/15/22 [History Last Taken Unknown] Allergy/AdvReac Type Severity Reaction Status Date / Time levofloxacin [From Levaquin] AdvReac Intermediate diarrhea, Verified 11/15/22 14:33 dizziness, GI upset, weakness Family History Father Arthritis Bleeding disorder Hypertension Kidney disease Cancer Skin Anemia blood clots Emphysema lung Mother Colon cancer Cancer Lung Cancer Diabetes Brother Thyroid disorder Surgical History H/O cardiac catheterization History of coronary artery stent placement (10/22/13) History of embolic filter insertion History of excision of pilonidal cyst History of heart artery stent History of thymectomy Hx of lymph node excision Presence of IVC filter (04/2021) Status post cardiac surgery Social History household members: spouse Smoking Status: Former smoker Tobacco: How many years used: 55 second hand exposure: Yes alcohol intake: current alcohol intake frequency: holidays/special occasions only substance use type: does not use caffeine: Yes Type: coffee Number of servings: 3 what type of physical activity do you participate in: none frequency: does not exercise seatbelt use: always ROS Constitutional Constitutional: Reports fatigue; Denies change in weight, chills, fever(s), malaise, night sweats or weakness Eyes Eyes: Denies change in vision Cardiovascular Cardiovascular: Reports dyspnea on exertion and orthopnea; Denies chest pain, edema, lightheadedness, palpitations or syncope Respiratory/Chest Respiratory/Chest: Reports productive cough and shortness of breath with exertion; Denies shortness of breath at rest or wheezing Gastrointestinal Gastrointestinal: Denies abdominal pain Vital Signs Vital Signs Vital Signs: 11/15/22 14:30 11/15/22 15:27 11/15/22 15:47 Temperature 97.8 F Temperature Source Temporal Pulse Rate 83 75 Respiratory Rate 15 16 Respiratory Effort Short of Breath Respiratory Depth Normal Respiratory Pattern Tachypnea Blood Pressure 118/59 L 125/66 H Blood Pressure Mean 78 85 Pulse Ox 93 98 Oxygen Delivery Method Nasal Cannula Nasal Cannula Nasal Cannula Oxygen Flow Rate (L/min) 4 4 4 11/15/22 16:30 11/15/22 17:51 11/15/22 19:03 Temperature Temperature Source Pulse Rate 74 75 86 Respiratory Rate 19 H 20 H 23 H Respiratory Effort Respiratory Depth Respiratory Pattern Blood Pressure 135/67 H 137/70 H 136/69 H Blood Pressure Mean 89 92 91 Pulse Ox 100 99 92 Oxygen Delivery Method Nasal Cannula Nasal Cannula Nasal Cannula Oxygen Flow Rate (L/min) 3 4 4 Weight Weight: 52.163 kg Body Mass Index (BMI) 16.0 Physical Exam Const alert and oriented x3 Constitutional Narrative: Pleasant elderly male, obese, chronically ill-appearing, sitting comfortably at edge of bed, conversing normally, no acute distress. General Appearance: cooperative and comfortable HEENT normocephalic, head/scalp atraumatic, hearing grossly normal bilaterally, nasal mucous membranes and turbinates normal and moist oral mucous membranes Eyes PERRL, EOMs intact bilaterally and conjunctivae normal Neck full ROM, no lymphadenopathy and supple Lymph Lymphatic: no lymphadenopathy noted Chest inspection of chest normal Resp Resp Narrative: Satting in low 80s on 4 L nasal cannula, no increased work of breathing noted. Crackles noted bilaterally. Decreased lung sounds at lung bases, worse on right. No wheezing noted. Cardio regular rate, regular rhythm, no murmurs and peripheral pulses 2+ throughout GI normal to inspection, nondistended, normoactive bowel sounds, soft to palpation,non-tender and non-distended Back/Spine normal ROM Extremity normal to inspection and full ROM Extremity Narrative: Nonpitting edema noted bilaterally. Skin no rashes or lesions noted Psych mental status grossly normal Results Lab / Micro Data 11/15/22 14:18 11/15/22 14:18 Labs: Laboratory Results - last 24 hr 11/15/22 14:18: WBC 7.3, RBC 2.77 L, Hgb 7.9 L, Hct 26.7 L, MCV 96.4 H, MCH 28.5, MCHC 29.6 L, RDW Std Deviation 54.0 H, RDW Coeff of Rafael 15.8 H, Plt Count 274, MPV 10.9, Immature Gran % (Auto) 1.200 H, Neut % (Auto) 65.2, Lymph % (Auto) 17.9 L, [place] % (Auto) 8.9, Eos % (Auto) 6.0 H, Baso % (Auto) 0.8, Absolute Neuts (auto) 4.8, Absolute Lymphs (auto) 1.31, Nucleated RBC % 0, Sodium 139, Potassium 4.7, Chloride 107, Carbon Dioxide 33.0 H, Anion Gap -1 L, BUN 21 H, Creatinine 1.54 H, Estim Creat Clear Calc 31.52, Est GFR (MDRD) Af Amer 57 L, Est GFR (MDRD) Non-Af 47 L, BUN/Creatinine Ratio 13.6, Glucose 221 H,Calcium 8.5, Troponin I High Sens 17, B-Natriuretic Peptide 298.1 H Radiology Impression Chest X-Ray 11/15/22 15:00 IMPRESSION: Bilateral pleural effusions with bibasilar pneumonia/atelectasis Electronically Signed: Antonio Field MD at 16:02 EDT , Assessment & Plan Assessment/Plan (1) Acute and chronic respiratory failure with hypoxia: PLAN: Plan Patient is a 72-year-old male with history of COPD with chronic hypoxic respiratory failure on home 4 L nasal cannula, CAD s/p stenting, iron deficiencyanemia, history of duodenal and colonic angiodysplastic bleeding lesions, CKD stage III, history of Hodgkin's lymphoma s/p ABVD and radiation in 2000, type 2 diabetes, hypertension and former tobacco use who presented to [facility] on 11/13/2022 with worsening dyspnea. 1. Volume overload with bilateral pleural effusions, acute on chronic hypoxic respiratory failure Highest concern is for new onset heart failure. Known history of COPD on home 4L nasal cannula. Presented with worsening shortness of breath with exertion over the last 1 to 2 weeks. Chest x-ray on admit shows mild bilateral pulm edema, bilateral pleural effusions of moderate size on right and small on left, bibasilar atelectasis. BNP 300. Notably with history of CAD s/p stenting as noted below, no history of heart failure. Most recent echo 04/23/2021 showed an EF of 65%, stage I diastolic dysfunction, mild aortic stenosis, otherwise unremarkable. Satting in high 80s on home 4 L nasal cannula in the ED, has significant desaturations to the high 70s to low 80s with minimal exertion. ? Admit under inpatient status to PCU. Echo ordered. Given 1 dose of IV Lasix 40 mg in the ED, will schedule IV Lasix 40 mg twice daily for now. Monitor urine output. Monitor patient's oxygen saturations with exertion. 2. History of COPD on home 4 L nasal cannula COPD secondary to extensive smoking history. Quit smoking about 1.5 years ago[address] with Dr. Singleton with pulmonology outpatient. On home budesonide inhaler 3 times daily, DuoNebs as needed. Patient has been using his short acting inhaler more frequently over the past few days, without any relief. No wheezing noted on physical exam. No concern for COPD exacerbation at this time. ? Continue home inhalers. Suspect acute worsening of hypoxia secondary to volume overload as noted above, treatment with diuresis as above. 3. Chronic anemia, history of GI bleed Stable. History of severe iron deficiency anemia secondary to previous GI bleeds in setting of previously identified duodenal and colonic angiodysplastic lesions. Also likely has component of anemia secondary to chronic kidney disease. Follows with Dr. Zapata with hematology/oncology, last office visit on 10/29/2022, see this office visit note for further details. Patient notably was found to have continued iron deficiency with ferritin around 30 in early September,has received 3 transfusions of IV iron since that time. Hemoglobin 7.9 on admit, at his baseline of around 7-8. ? We will repeat iron studies to assess for response to IV iron infusions. Monitor hemoglobin, transfuse for hemoglobin less than 7. Continue home p.o. iron supplement. 4. History of CAD s/p stenting Follows with Dr. Mello with cardiology, last office visit on 09/13/2022. S/p PCIto the LAD and RCA in 2001, followed by PCI of the circumflex in 2013. Notably with no history of heart failure as noted above. ? Continue home aspirin, atorvastatin, Lopressor. Work-up for possible heart failure as noted above. Chronic medical conditions: ? Type 2 diabetes: Does not appear to be on any home medications for this. Blood glucose of 221 in the ED. Last noted hemoglobin A1c of 8.5% back in November 2021. Repeat A1c ordered. We will start sliding scale insulin while admitted. ? CKD stage III: Creatinine 1.54 on admit, baseline creatinine appears to be around 1.4-1.6. Monitor BMP. ? BPH: Continue home Flomax and finasteride. ? Depression/anxiety: Continue home escitalopram and mirtazapine at night. DVT prophylaxis: Lovenox CODE STATUS: Full code, verified Expected disposition: Home, TBD Total clinical time spent by myself addressing the patient's medical issues, reviewing all the data, and collaborating with patient's care team: 55 minutes. Charges/Coding Visit Charges Inpatient E&M: 18669 Init Hosp L2 11/15/222032 <Electronically signed by Loki Lozoya DO> Cosigner Signature (if applicable): CC: Dr. Loki Lozoya DO; Dr. Donna Will MD~ Signed [facility] Work Phone: [phone] 113-102409-22-2023 Discharge summary Author Jj Lealo [facility] November 15, 2022 7:09pm Note Date/Time November 15, 2022 2:59pm [facility] Medical Records Department [address] [place] [address] [place] [address] Emergency Department Summary 11/15/22 MR#: [id number] Acct: [id number] Name: JAYDON ALONZO Jr. Rep #:[id number] : 1950 72 From: Jj Garcia MD PCP: Dr. Donna Will MD Status:REG ER Location: ED HPI History of Present Illness Chief Complaint: Shortness of Breath Detail of Chief Complaint: Increased dyspnea past 2 weeks Informant: patient Onset/Context/Timing Onset: Weeks Context: gradual Timing: Continuous and Waxes and wanes Quality: Positive for Dyspnea on exertion and Orthopnea (Sleeps in a chair at 45degrees for the past 6 to 9 months); Negative for PND or Wheezing Current Severity: Mild Maximum Severity: Severe Worsened by: Exertion and Lying flat; Not Worsened By Coughing Relieved by: Not Relieved By Rest or Oxygen Associated Symptoms cough and white sputum; Negative for rhinorrhea, post nasal drip, ear pain, fever, sore throat, subjective, chills, sweats, clear sputum, yellow sputum or green sputum Chest Pain: Positive for None Narrative Narrative: Patient is a 72-year-old male with history of non-Hodgkin's lymphoma diagnosed in 1999 and has been cancer free who presents with dyspnea, dyspnea on exertion and stable orthopnea. He reports increased dyspnea with activity over the past 2 weeks. He denies fever or chills. He denies night sweats or weight gain. Hedenies headache, visual, ocular auditory symptoms. He denies rhinorrhea, congestion, postnasal drainage or sore throat. He does have a cough and is productive of cloudy appearing sputum. This is not normal for him. He denieshistory of PE or DVT. He does have leg pain and states he has lymphedema. He denies history of congestive heart failure. He states he has several stents. He was a smoker until approximately year ago. He has been on oxygen for some time and is related to COVID infection. He states he had a long hospitalizationand recovery. He denies black or maroon-colored stool. His stool has been dark. It is not described as being sticky and there is no odor to it. He apparently had occult blood in his stool a month ago. Will review old records for verification. Patient denies bruising easily. He denies bleeding gums or hematuria. PE Risk Factors: Negative for Cancer (Diagnosed 23 years ago.), OCP + Smoking + > 35, Prior DVT or PE, Recent immobilization, Recent surgery or Recent travel Prior similar symptoms: Yes (Iron deficiency anemia requiring transfusion) Recent Illness/Hospitalization: No PFSH PFSH Medical History Acute respiratory failure with hypoxia Allergic rhinitis Arthritis Asthma Atherosclerosis of coronary artery of [place] heart without angina pectoris Bleeding tendency Cancer Chronic bronchitis Colon polyp COPD (chronic obstructive pulmonary disease) COVID-19 in immunocompromised patient Diabetes DVT (deep venous thrombosis) (05/01/21) Essential hypertension Former smoker FTT (failure to thrive) in adult Gastritis High cholesterol History of basal cell carcinoma History of pilonidal cyst History of pulmonary embolus (PE) (04/30/21) History of stress test HTN (hypertension) Hyperglycemia Nicotine dependence, cigarettes, uncomplicated Non-Hodgkin lymphoma Obesity On home oxygen therapy Physical debility Pneumonia Positive colorectal cancer screening using Cologuard test RA (rheumatoid arthritis) Rhinovirus Tobacco abuse Type 2 diabetes mellitus Ulcer 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 complications Home Medications nitroglycerin 0.4 mg sublingual tablet (Nitrostat) 0.4 mg sublingual Q5M PRN chest pain #30 tabs 09/25/20 [Rx Last Taken Unknown] atorvastatin 40 mg tablet 20 mg PO QHS cholesterol 10/09/21 [History Last Taken 12/07/21] metoprolol tartrate 25 mg tablet 12.5 mg PO BID BP 10/09/21 [History Last Taken 12/08/21] aspirin 81 mg tablet,delayed release 81 mg PO DAILY 12/31/21 [History Last Taken Unknown] budesonide 1 mg/2 mL suspension for nebulization 1 mg (2 mL) inhalation BID #60 mL 06/05/22 [Rx Last Taken Unknown] ipratropium bromide 0.02 % solution for inhalation 2.5 ml inhalation Q6H PRN shortness of breath or wheezing #150 mL 06/25/22 [Rx Last Taken Unknown] finasteride 5 mg tablet 5 mg PO DAILY 08/14/22 [History Last Taken Unknown] tamsulosin 0.4 mg capsule 0.4 mg PO DAILY 08/14/22 [History Last Taken Unknown] ferrous sulfate 325 mg (65 mg iron) tablet 325 mg PO TID iron supplement 09/13/22 [History Last Taken Unknown] multivitamin 1 tab PO DAILY 09/13/22 [History Last Taken Unknown] pantoprazole 40 mg tablet,delayed release 40 mg PO BID #180 tabs 09/23/22 [Rx Last Taken Unknown] sucralfate 1 gram tablet 1 g PO BID #60 tabs 09/23/22 [Rx Last Taken Unknown] escitalopram oxalate 10 mg tablet 10 mg PO DAILY mood 90 days #90 tabs 10/14/22 [Rx Last Taken Unknown] albuterol sulfate 2.5 mg/3 mL (0.083 %) solution for nebulization 2.5 mg (3 mL) inhalation Q4H PRN Sob &/Or Wheezing #540 mL 10/21/22 [Rx Last Taken Unknown] ipratropium bromide 0.02 % solution for inhalation 2.5 ml inhalation Q6H PRN shortness of breath or wheezing #450 mL 10/21/22 [Rx Last Taken Unknown] mirtazapine 15 mg tablet (Remeron) 7.5 mg (1/2 x 15 mg) PO QHS sleep #90 tabs 11/04/22 [Rx Last Taken Unknown] Allergy/AdvReac Type Severity Reaction Status Date / Time levofloxacin [From Levaquin] AdvReac Intermediate diarrhea, Verified 11/15/22 14:33 dizziness, GI upset, weakness Family History Father Arthritis Bleeding disorder Hypertension Kidney disease Cancer Skin Anemia blood clots Emphysema lung Mother Colon cancer Cancer Lung Cancer Diabetes Brother Thyroid disorder Surgical History H/O cardiac catheterization History of coronary artery stent placement (10/22/13) History of embolic filter insertion History of excision of pilonidal cyst History of heart artery stent History of thymectomy Hx of lymph node excision Presence of IVC filter (04/2021) Status post cardiac surgery Social History household members: spouse Smoking Status: Former smoker Tobacco: How many years used: 55 second hand exposure: Yes alcohol intake: current alcohol intake frequency: holidays/special occasions only substance use type: does not use caffeine: Yes Type: coffee Number of servings: 3 what type of physical activity do you participate in: none frequency: does not exercise seatbelt use: always ROS ROS ED Constitutional Constitutional ED: Denies chills, fever(s), sweats or weight loss Eyes Eyes: Denies blurry vision, change in vision or diplopia ENT ENT ED: Denies ear pain, rhinorrhea or sore throat Cardiovascular Cardiovascular: Reports orthopnea; Denies chest pain, palpitations, paroxysmal nocturnal dyspnea or racing heartbeat Respiratory/Chest Respiratory/Chest: Reports cough, dyspnea, dyspnea on exertion, orthopnea and sputum; Denies paroxysmal nocturnal dyspnea Gastrointestinal Gastrointestinal: Denies abdominal pain, melena, nausea or vomiting Genitourinary Genitourinary ED: Denies dysuria, hematuria or urinary frequency Musculoskeletal Musculoskeletal: Denies arthralgias, back pain, myalgias or neck pain Integumentary Denies rash Neurologic Neurologic: Denies headache(s) or paresthesias Psychiatric Psychiatric: Denies anxiety Endocrine Endocrinology: Denies cold intolerance or heat intolerance Hematologic/Lymphatic Hematologic/Lymphatic: Denies easy bleeding or easy bruising EXAM Physical Exam Const Vital Signs: 11/15/22 14:30 11/15/22 15:27 11/15/22 15:47 Temperature 97.8 F Temperature Source Temporal Pulse Rate 83 75 Respiratory Rate 15 16 Respiratory Effort Short of Breath Respiratory Depth Normal Respiratory Pattern Tachypnea Blood Pressure 118/59 L 125/66 H Blood Pressure Mean 78 85 Pulse Ox 93 98 Oxygen Delivery Method Nasal Cannula Nasal Cannula Nasal Cannula Oxygen Flow Rate (L/min) 4 4 4 11/15/22 16:30 11/15/22 17:51 11/15/22 19:03 Temperature Temperature Source Pulse Rate 74 75 86 Respiratory Rate 19 H 20 H 23 H Respiratory Effort Respiratory Depth Respiratory Pattern Blood Pressure 135/67 H 137/70 H 136/69 H Blood Pressure Mean 89 92 91 Pulse Ox 100 99 92 Oxygen Delivery Method Nasal Cannula Nasal Cannula Nasal Cannula Oxygen Flow Rate (L/min) 3 4 4 Positive well nourished and well developed; Negative for cachectic or contractures Constitutional Narrative: Patient has mild shortness of breath with conversation. General Appearance ED: well developed and pallor; Negative for cachectic or contractures Nutritional Appearance: Negative for cachectic HEENT Reports moist mucous membranes HEENT Narrative: Ears are normal. Posterior pharynx is normal. Uvula is midline. Nares patent. There is no drainage. atraumatic Eyes PERRL and EOMs intact bilaterally General Eye ED: Negative for pale conjunctiva or scleral icterus Neck no lymphadenopathy, supple, no meningeal signs and no JVD Resp normal respiratory effort and No clear to auscultation bilaterally Auscultation: rales bilateral base Cardio regular rate, regular rhythm, S1 normal heart sound, S2 normal heart sound and no murmurs GI non-tender, non-distended and no masses Auscultation: normoactive bowel sounds Palpation: soft Back/Spine no CVA tenderness Extremity Negative for normal to inspection Extremity Narrative: There is pallor. There is no leg vein distention, palpable cords, pain along distribution deep venous system, asymmetry or discoloration. General Extremety ED: Yes edema General Extremity: edema Neuro oriented x3, CN's II-XII intact bilaterally and no sensory deficits noted Sensorium / Orientation: alert Speech: speech normal Motor Exam: strength 5/5 throughout Psych Mood & Affect: depressed Skin no wounds and skin turgor normal General Skin Exam: pallor; Negative for jaundice Lesions: no lesions MDM MDM MDM Narrative Medical decision making narrative: Differential diagnosis would include congestive heart failure, pneumonia, exacerbation of COPD, anemia cardiac ischemia. Chest x-ray, EKG and appropriateblood work was obtained to determine cause of his symptoms and presentation. Review of prior records indicates the patient has chronic anemia and stage III kidney disease. There is also remote history of non-Hodgkin's lymphoma. There also is a history of GI bleed. Patient was administered IV Lasix for his pedal edema, bilateral pleural effusions and elevated BNP consistent with heart failure. Patient has chronic kidney disease and is at baseline. History & Record Review Additional record(s) reviewed:: Prior outpatient record, Prior ED visit and Prior labs Lab Data Attestation: I reviewed the patient's lab results. Lab results narrative: Patient's H&H is baseline at 7.9 and 26.7. Indices are unchanged. Basic metabolic panel reveals glucose of 221 with a elevated CO2 of 33 and normal anion gap. BUN and creatinine are slightly elevated 21 and 1.54 with a GFR of 47. BNP is slightly elevated at 298. Troponin is normal at 17. Labs: Laboratory Results - last 24 hr 11/15/22 14:18 WBC 7.3 RBC 2.77 L Hgb 7.9 L Hct 26.7 L MCV 96.4 H MCH 28.5 MCHC 29.6 L RDW Std Deviation 54.0 H RDW Coeff of Rafael 15.8 H Plt Count 274 MPV 10.9 Immature Gran % (Auto) 1.200 H Neut % (Auto) 65.2 Lymph % (Auto) 17.9 L [place] % (Auto) 8.9 Eos % (Auto) 6.0 H Baso % (Auto) 0.8 Absolute Neuts (auto) 4.8 Absolute Lymphs (auto) 1.31 Nucleated RBC % 0 Sodium 139 Potassium 4.7 Chloride 107 Carbon Dioxide 33.0 H Anion Gap -1 L BUN 21 H Creatinine 1.54 H Estim Creat Clear Calc 31.52 Est GFR (MDRD) Af Amer 57 L Est GFR (MDRD) Non-Af 47 L BUN/Creatinine Ratio 13.6 Glucose 221 H Calcium 8.5 Troponin I High Sens 17 B-Natriuretic Peptide 298.1 H Radiography Chest X-Ray - ED: 2 View and Read by ED Physician (2 view chest x-ray. Reviewedinterpreted by me at 1600 as bilateral pleural effusions right much greater thanleft. Unable to determine patient has atelectasis or pneumonia because of the effusion. The film is suboptimal. Cardiac silhouette is obscured on the right. Cardiac size appears normal.) Diagnostic Testing: Clinical Impression(s) from Imaging Studies Chest X-Ray 11/15/22 15:00 IMPRESSION: Bilateral pleural effusions with bibasilar pneumonia/atelectasis Electronically Signed: Antonio Field MD at 16:02 EDT , EKG Initial EKG: Attestation: I personally reviewed and interpreted this EKG as follows: Interpretation: Sinus Rhythm (Rate is 74. The EKG is normal. GA intervalis 152 ms. QRS duration 102 ms. QT duration 400 ms. [place] is normal) Treatment and Re-Evaluation :: Walked from room 12 down to room 17. He desaturated 87%. In light of this patient will need aggressive diuresis and admission. Discharge Plan Triage Chief Complaint: Shortness of Breath ED Provider: Garcia,Jj Dx/Rx/DC Orders Clinical Impression: Hypoxia, Type 2 diabetes mellitus, Essential hypertension, Hyperlipidemia, Bilateral pleural effusion, Heart failure, Chronic iron deficiency anemia, Chronic kidney disease (CKD), stage III (moderate) Prescriptions: No Action nitroglycerin [Nitrostat] 0.4 mg tablet, sublingual 0.4 mg SUBLINGUAL Q5M PRN (Reason: chest pain) Qty: 30 0RF Rx Instructions: until response; do not exceed 3 doses per episode metoprolol tartrate 25 mg tablet 12.5 mg PO BID multivitamin Tablet 1 tab PO DAILY tamsulosin 0.4 mg capsule 0.4 mg PO DAILY finasteride 5 mg tablet 5 mg PO DAILY ferrous sulfate 325 mg (65 mg iron) tablet 325 mg PO TID atorvastatin 40 mg tablet 20 mg PO QHS aspirin 81 mg Tablet,Delayed Release (Dr/Ec) 81 mg PO DAILY budesonide 1 mg/2 mL suspension for nebulization 1 mg inhalation BID Qty: 60 6RF ipratropium bromide 0.02 % solution 2.5 ml inhalation Q6H PRN (Reason: shortness of breath or wheezing) Qty: 150 6RF pantoprazole 40 mg tablet,delayed release (DR/EC) 40 mg PO BID Qty: 180 3RF sucralfate 1 gram tablet 1 g PO BID Qty: 60 1RF escitalopram oxalate 10 mg tablet 10 mg PO DAILY 90 Days Qty: 90 3RF albuterol sulfate 2.5 mg /3 mL (0.083 %) solution for nebulization 2.5 mg inhalation Q4H PRN (Reason: Sob &/Or Wheezing) Qty: 540 3RF ipratropium bromide 0.02 % solution 2.5 ml inhalation Q6H PRN (Reason: shortness of breath or wheezing) Qty: 450 3RF mirtazapine [Remeron] 15 mg tablet 7.5 mg PO QHS Qty: 90 1RF Primary Care Provider: Donna Will Referrals: Donna Will MD [Primary Care Provider] - Disposition Disposition: Acute Care [facility] What to do if you have Problems For any increased pain, shortness of breath, bleeding, nausea or vomiting, chestpain, or any unexpected problems, contact your Primary Care Provider. Call [facility] ([phone]) or report to the closest Emergency Room. Call 911 if necessary. 11/15/221908 <Electronically signed by Jj Garcia MD> Cosigner Signature (if applicable): CC: Dr. Donna Will MD ~ Signed [facility] Work Phone: 1(206) 180-965809-22-2023 Discharge summary Author Jj Garcia [facility] November 15, 2022 7:09pm Note Date/Time November 15, 2022 2:59pm [facility] Medical Records Department [address] [place] [address] Emergency Department Summary 11/15/22 MR#: [id number] Acct: [id number] Name: JAYDON ALONZO JrJuan Rep #:[id number] : 1950 72 From: Jj Garcia MD PCP: Dr. Donna Will MD Status:REG ER Location: ED HPI History of Present Illness Chief Complaint: Shortness of Breath Detail of Chief Complaint: Increased dyspnea past 2 weeks Informant: patient Onset/Context/Timing Onset: Weeks Context: gradual Timing: Continuous and Waxes and wanes Quality: Positive for Dyspnea on exertion and Orthopnea (Sleeps in a chair at 45degrees for the past 6 to 9 months); Negative for PND or Wheezing Current Severity: Mild Maximum Severity: Severe Worsened by: Exertion and Lying flat; Not Worsened By Coughing Relieved by: Not Relieved By Rest or Oxygen Associated Symptoms cough and white sputum; Negative for rhinorrhea, post nasal drip, ear pain, fever, sore throat, subjective, chills, sweats, clear sputum, yellow sputum or green sputum Chest Pain: Positive for None Narrative Narrative: Patient is a 72-year-old male with history of non-Hodgkin's lymphoma diagnosed in 1999 and has been cancer free who presents with dyspnea, dyspnea on exertion and stable orthopnea. He reports increased dyspnea with activity over the past 2 weeks. He denies fever or chills. He denies night sweats or weight gain. Hedenies headache, visual, ocular auditory symptoms. He denies rhinorrhea, congestion, postnasal drainage or sore throat. He does have a cough and is productive of cloudy appearing sputum. This is not normal for him. He denieshistory of PE or DVT. He does have leg pain and states he has lymphedema. He denies history of congestive heart failure. He states he has several stents. He was a smoker until approximately year ago. He has been on oxygen for some time and is related to COVID infection. He states he had a long hospitalizationand recovery. He denies black or maroon-colored stool. His stool has been dark. It is not described as being sticky and there is no odor to it. He apparently had occult blood in his stool a month ago. Will review old records for verification. Patient denies bruising easily. He denies bleeding gums or hematuria. PE Risk Factors: Negative for Cancer (Diagnosed 23 years ago.), OCP + Smoking + > 35, Prior DVT or PE, Recent immobilization, Recent surgery or Recent travel Prior similar symptoms: Yes (Iron deficiency anemia requiring transfusion) Recent Illness/Hospitalization: No 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 Diabetes DVT (deep venous thrombosis) (05/01/21) Essential hypertension Former smoker FTT (failure to thrive) in adult Gastritis High cholesterol History of basal cell carcinoma History of pilonidal cyst History of pulmonary embolus (PE) (04/30/21) History of stress test HTN (hypertension) Hyperglycemia Nicotine dependence, cigarettes, uncomplicated Non-Hodgkin lymphoma Obesity On home oxygen therapy Physical debility Pneumonia Positive colorectal cancer screening using Cologuard test RA (rheumatoid arthritis) Rhinovirus Tobacco abuse Type 2 diabetes mellitus Ulcer 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 complications Home Medications nitroglycerin 0.4 mg sublingual tablet (Nitrostat) 0.4 mg sublingual Q5M PRN chest pain #30 tabs 09/25/20 [Rx Last Taken Unknown] atorvastatin 40 mg tablet 20 mg PO QHS cholesterol 10/09/21 [History Last Taken 12/07/21] metoprolol tartrate 25 mg tablet 12.5 mg PO BID BP 10/09/21 [History Last Taken 12/08/21] aspirin 81 mg tablet,delayed release 81 mg PO DAILY 12/31/21 [History Last Taken Unknown] budesonide 1 mg/2 mL suspension for nebulization 1 mg (2 mL) inhalation BID #60 mL 06/05/22 [Rx Last Taken Unknown] ipratropium bromide 0.02 % solution for inhalation 2.5 ml inhalation Q6H PRN shortness of breath or wheezing #150 mL 06/25/22 [Rx Last Taken Unknown] finasteride 5 mg tablet 5 mg PO DAILY 08/14/22 [History Last Taken Unknown] tamsulosin 0.4 mg capsule 0.4 mg PO DAILY 08/14/22 [History Last Taken Unknown] ferrous sulfate 325 mg (65 mg iron) tablet 325 mg PO TID iron supplement 09/13/22 [History Last Taken Unknown] multivitamin 1 tab PO DAILY 09/13/22 [History Last Taken Unknown] pantoprazole 40 mg tablet,delayed release 40 mg PO BID #180 tabs 09/23/22 [Rx Last Taken Unknown] sucralfate 1 gram tablet 1 g PO BID #60 tabs 09/23/22 [Rx Last Taken Unknown] escitalopram oxalate 10 mg tablet 10 mg PO DAILY mood 90 days #90 tabs 10/14/22 [Rx Last Taken Unknown] albuterol sulfate 2.5 mg/3 mL (0.083 %) solution for nebulization 2.5 mg (3 mL) inhalation Q4H PRN Sob &/Or Wheezing #540 mL 10/21/22 [Rx Last Taken Unknown] ipratropium bromide 0.02 % solution for inhalation 2.5 ml inhalation Q6H PRN shortness of breath or wheezing #450 mL 10/21/22 [Rx Last Taken Unknown] mirtazapine 15 mg tablet (Remeron) 7.5 mg (1/2 x 15 mg) PO QHS sleep #90 tabs 11/04/22 [Rx Last Taken Unknown] Allergy/AdvReac Type Severity Reaction Status Date / Time levofloxacin [From Levaquin] AdvReac Intermediate diarrhea, Verified 11/15/22 14:33 dizziness, GI upset, weakness Family History Father Arthritis Bleeding disorder Hypertension Kidney disease Cancer Skin Anemia blood clots Emphysema lung Mother Colon cancer Cancer Lung Cancer Diabetes Brother Thyroid disorder Surgical History H/O cardiac catheterization History of coronary artery stent placement (10/22/13) History of embolic filter insertion History of excision of pilonidal cyst History of heart artery stent History of thymectomy Hx of lymph node excision Presence of IVC filter (04/2021) Status post cardiac surgery Social History household members: spouse Smoking Status: Former smoker Tobacco: How many years used: 55 second hand exposure: Yes alcohol intake: current alcohol intake frequency: holidays/special occasions only substance use type: does not use caffeine: Yes Type: coffee Number of servings: 3 what type of physical activity do you participate in: none frequency: does not exercise seatbelt use: always ROS ROS ED Constitutional Constitutional ED: Denies chills, fever(s), sweats or weight loss Eyes Eyes: Denies blurry vision, change in vision or diplopia ENT ENT ED: Denies ear pain, rhinorrhea or sore throat Cardiovascular Cardiovascular: Reports orthopnea; Denies chest pain, palpitations, paroxysmal nocturnal dyspnea or racing heartbeat Respiratory/Chest Respiratory/Chest: Reports cough, dyspnea, dyspnea on exertion, orthopnea and sputum; Denies paroxysmal nocturnal dyspnea Gastrointestinal Gastrointestinal: Denies abdominal pain, melena, nausea or vomiting Genitourinary Genitourinary ED: Denies dysuria, hematuria or urinary frequency Musculoskeletal Musculoskeletal: Denies arthralgias, back pain, myalgias or neck pain Integumentary Denies rash Neurologic Neurologic: Denies headache(s) or paresthesias Psychiatric Psychiatric: Denies anxiety Endocrine Endocrinology: Denies cold intolerance or heat intolerance Hematologic/Lymphatic Hematologic/Lymphatic: Denies easy bleeding or easy bruising EXAM Physical Exam Const Vital Signs: 11/15/22 14:30 11/15/22 15:27 11/15/22 15:47 Temperature 97.8 F Temperature Source Temporal Pulse Rate 83 75 Respiratory Rate 15 16 Respiratory Effort Short of Breath Respiratory Depth Normal Respiratory Pattern Tachypnea Blood Pressure 118/59 L 125/66 H Blood Pressure Mean 78 85 Pulse Ox 93 98 Oxygen Delivery Method Nasal Cannula Nasal Cannula Nasal Cannula Oxygen Flow Rate (L/min) 4 4 4 11/15/22 16:30 11/15/22 17:51 11/15/22 19:03 Temperature Temperature Source Pulse Rate 74 75 86 Respiratory Rate 19 H 20 H 23 H Respiratory Effort Respiratory Depth Respiratory Pattern Blood Pressure 135/67 H 137/70 H 136/69 H Blood Pressure Mean 89 92 91 Pulse Ox 100 99 92 Oxygen Delivery Method Nasal Cannula Nasal Cannula Nasal Cannula Oxygen Flow Rate (L/min) 3 4 4 Positive well nourished and well developed; Negative for cachectic or contractures Constitutional Narrative: Patient has mild shortness of breath with conversation. General Appearance ED: well developed and pallor; Negative for cachectic or contractures Nutritional Appearance: Negative for cachectic HEENT Reports moist mucous membranes HEENT Narrative: Ears are normal. Posterior pharynx is normal. Uvula is midline. Nares patent. There is no drainage. atraumatic Eyes PERRL and EOMs intact bilaterally General Eye ED: Negative for pale conjunctiva or scleral icterus Neck no lymphadenopathy, supple, no meningeal signs and no JVD Resp normal respiratory effort and No clear to auscultation bilaterally Auscultation: rales bilateral base Cardio regular rate, regular rhythm, S1 normal heart sound, S2 normal heart sound and no murmurs GI non-tender, non-distended and no masses Auscultation: normoactive bowel sounds Palpation: soft Back/Spine no CVA tenderness Extremity Negative for normal to inspection Extremity Narrative: There is pallor. There is no leg vein distention, palpable cords, pain along distribution deep venous system, asymmetry or discoloration. General Extremety ED: Yes edema General Extremity: edema Neuro oriented x3, CN's II-XII intact bilaterally and no sensory deficits noted Sensorium / Orientation: alert Speech: speech normal Motor Exam: strength 5/5 throughout Psych Mood & Affect: depressed Skin no wounds and skin turgor normal General Skin Exam: pallor; Negative for jaundice Lesions: no lesions MDM MDM MDM Narrative Medical decision making narrative: Differential diagnosis would include congestive heart failure, pneumonia, exacerbation of COPD, anemia cardiac ischemia. Chest x-ray, EKG and appropriateblood work was obtained to determine cause of his symptoms and presentation. Review of prior records indicates the patient has chronic anemia and stage III kidney disease. There is also remote history of non-Hodgkin's lymphoma. There also is a history of GI bleed. Patient was administered IV Lasix for his pedal edema, bilateral pleural effusions and elevated BNP consistent with heart failure. Patient has chronic kidney disease and is at baseline. History & Record Review Additional record(s) reviewed:: Prior outpatient record, Prior ED visit and Prior labs Lab Data Attestation: I reviewed the patient's lab results. Lab results narrative: Patient's H&H is baseline at 7.9 and 26.7. Indices are unchanged. Basic metabolic panel reveals glucose of 221 with a elevated CO2 of 33 and normal anion gap. BUN and creatinine are slightly elevated 21 and 1.54 with a GFR of 47. BNP is slightly elevated at 298. Troponin is normal at 17. Labs: Laboratory Results - last 24 hr 11/15/22 14:18 WBC 7.3 RBC 2.77 L Hgb 7.9 L Hct 26.7 L MCV 96.4 H MCH 28.5 MCHC 29.6 L RDW Std Deviation 54.0 H RDW Coeff of Rafael 15.8 H Plt Count 274 MPV 10.9 Immature Gran % (Auto) 1.200 H Neut % (Auto) 65.2 Lymph % (Auto) 17.9 L [place] % (Auto) 8.9 Eos % (Auto) 6.0 H Baso % (Auto) 0.8 Absolute Neuts (auto) 4.8 Absolute Lymphs (auto) 1.31 Nucleated RBC % 0 Sodium 139 Potassium 4.7 Chloride 107 Carbon Dioxide 33.0 H Anion Gap -1 L BUN 21 H Creatinine 1.54 H Estim Creat Clear Calc 31.52 Est GFR (MDRD) Af Amer 57 L Est GFR (MDRD) Non-Af 47 L BUN/Creatinine Ratio 13.6 Glucose 221 H Calcium 8.5 Troponin I High Sens 17 B-Natriuretic Peptide 298.1 H Radiography Chest X-Ray - ED: 2 View and Read by ED Physician (2 view chest x-ray. Reviewedinterpreted by me at 1600 as bilateral pleural effusions right much greater thanleft. Unable to determine patient has atelectasis or pneumonia because of the effusion. The film is suboptimal. Cardiac silhouette is obscured on the right. Cardiac size appears normal.) Diagnostic Testing: Clinical Impression(s) from Imaging Studies Chest X-Ray 11/15/22 15:00 IMPRESSION: Bilateral pleural effusions with bibasilar pneumonia/atelectasis Electronically Signed: Antonio Field MD at 16:02 EDT , EKG Initial EKG: Attestation: I personally reviewed and interpreted this EKG as follows: Interpretation: Sinus Rhythm (Rate is 74. The EKG is normal. GA intervalis 152 ms. QRS duration 102 ms. QT duration 400 ms. [place] is normal) Treatment and Re-Evaluation :: Walked from room 12 down to room 17. He desaturated 87%. In light of this patient will need aggressive diuresis and admission. Discharge Plan Triage Chief Complaint: Shortness of Breath ED Provider: Jj Garcia Dx/Rx/DC Orders Clinical Impression: Hypoxia, Type 2 diabetes mellitus, Essential hypertension, Hyperlipidemia, Bilateral pleural effusion, Heart failure, Chronic iron deficiency anemia, Chronic kidney disease (CKD), stage III (moderate) Prescriptions: No Action nitroglycerin [Nitrostat] 0.4 mg tablet, sublingual 0.4 mg SUBLINGUAL Q5M PRN (Reason: chest pain) Qty: 30 0RF Rx Instructions: until response; do not exceed 3 doses per episode metoprolol tartrate 25 mg tablet 12.5 mg PO BID multivitamin Tablet 1 tab PO DAILY tamsulosin 0.4 mg capsule 0.4 mg PO DAILY finasteride 5 mg tablet 5 mg PO DAILY ferrous sulfate 325 mg (65 mg iron) tablet 325 mg PO TID atorvastatin 40 mg tablet 20 mg PO QHS aspirin 81 mg Tablet,Delayed Release (Dr/Ec) 81 mg PO DAILY budesonide 1 mg/2 mL suspension for nebulization 1 mg inhalation BID Qty: 60 6RF ipratropium bromide 0.02 % solution 2.5 ml inhalation Q6H PRN (Reason: shortness of breath or wheezing) Qty: 150 6RF pantoprazole 40 mg tablet,delayed release (DR/EC) 40 mg PO BID Qty: 180 3RF sucralfate 1 gram tablet 1 g PO BID Qty: 60 1RF escitalopram oxalate 10 mg tablet 10 mg PO DAILY 90 Days Qty: 90 3RF albuterol sulfate 2.5 mg /3 mL (0.083 %) solution for nebulization 2.5 mg inhalation Q4H PRN (Reason: Sob &/Or Wheezing) Qty: 540 3RF ipratropium bromide 0.02 % solution 2.5 ml inhalation Q6H PRN (Reason: shortness of breath or wheezing) Qty: 450 3RF mirtazapine [Remeron] 15 mg tablet 7.5 mg PO QHS Qty: 90 1RF Primary Care Provider: Donna Will Referrals: Donna Will MD [Primary Care Provider] - Disposition Disposition: Acute Care Hospital [facility] What to do if you have Problems For any increased pain, shortness of breath, bleeding, nausea or vomiting, chestpain, or any unexpected problems, contact your Primary Care Provider. Call [facility] ([phone]) or report to the closest Emergency Room. Call 911 if necessary. 11/15/221908 <Electronically signed by Jj Garcia MD> Cosigner Signature (if applicable): CC: Dr. Donna Will MD ~ Signed [facility] Work Phone: [phone]) 654-184207-06-2023 Discharge summary Author [facility] August 29, 2022 6:21pm Note Date/Time August 29, 2022 4:41p m [facility] Medical Records Department [address] [place] [address] Emergency Department Summary 08/29/22 MR#: [id number] Acct: [id number] Name: JAYDON ALONZO JrJuan Rep #:[id number] : 1950 71 From: Adam Freeman MD PCP: Dr. Donna Will MD Status:REG ER Location: ED HPI History of Present Illness Chief Complaint: Weakness Narrative Narrative: 71-year-old male multiple medical problems including COPD wears 4 L of oxygen atall times presents with increasing shortness of breath, weakness and fatigue secondary to GI bleed. He states that he takes aspirin/baby aspirin and had previous GI bleed which was cauterized last year. He did require a blood transfusion at that time. Over the last 3 months he has had black stool. 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 Galeana, on Fridayof last week. He and his family received a call today that he needed to go to the hospital and get lab work performed. His relative states that he has a hemoglobin of 7.8, and that he has been sent here to the emergency department sothat he can be admitted so that Dr. Galeana can scope him tomorrow. Patient denies any chest pain, no fevers or chills but states he has had increased fatigue and shortness of breath with dyspnea on exertion over his baseline COPD. He denies any other bleeding diathesis but does state that his stool has been black for a few months. No gross hematemesis. 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 Diabetes DVT (deep venous thrombosis) (05/01/21) Essential hypertension Former smoker FTT (failure to thrive) in adult Gastritis High cholesterol History of basal cell carcinoma History of pilonidal cyst History of pulmonary embolus (PE) (04/30/21) History of stress test HTN (hypertension) Hyperglycemia Nicotine dependence, cigarettes, uncomplicated Non-Hodgkin lymphoma Obesity On home oxygen therapy Physical debility Pneumonia Positive colorectal cancer screening using Cologuard test RA (rheumatoid arthritis) Rhinovirus Tobacco abuse Type 2 diabetes mellitus Ulcer 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 complications Home Medications cholecalciferol (vitamin D3) 25 mcg (1,000 unit) capsule 25 mcg PO DAILY odgihvl17/24/21 [History Last Taken 12/08/21] nitroglycerin 0.4 mg sublingual tablet (Nitrostat) 0.4 mg sublingual Q5M PRN chest pain #30 tabs 09/25/20 [Rx Last Taken Unknown] ferrous sulfate 325 mg (65 mg iron) tablet 325 mg PO BID iron supplement 04/26/21 [History Last Taken 12/08/21] escitalopram oxalate 10 mg tablet 10 mg PO DAILY mood 30 days #90 tabs 06/21/21 [Rx Last Taken 12/08/21] atorvastatin 40 mg tablet 20 mg PO QHS cholesterol 10/09/21 [History Last Taken 12/07/21] metoprolol tartrate 25 mg tablet 12.5 mg PO BID BP 10/09/21 [History Last Taken 12/08/21] mirtazapine 15 mg tablet (Remeron) 7.5 mg PO QHS sleep 12/08/21 [History Last Taken 12/07/21] aspirin 81 mg tablet,delayed release 81 mg PO DAILY 12/31/21 [History Last Taken Unknown] budesonide 1 mg/2 mL suspension for nebulization 1 mg (2 mL) inhalation BID #60 mL 06/05/22 [Rx Last Taken Unknown] albuterol sulfate 2.5 mg/3 mL (0.083 %) solution for nebulization 2.5 mg (3 mL) inhalation Q6H PRN shortness of breath or wheezing #180 mL 06/25/22 [Rx Last Taken Unknown] ipratropium 0.5 mg-albuterol 3 mg (2.5 mg base)/3 mL nebulization soln 3 ml inhalation Q4H PRN PRN SOB &/OR WHEEZING #180 mL 06/25/22 [Rx Last Taken Unknown] ipratropium bromide 0.02 % solution for inhalation 2.5 ml inhalation Q6H PRN shortness of breath or wheezing #150 mL 06/25/22 [Rx Last Taken Unknown] finasteride 5 mg tablet 5 mg PO DAILY 08/14/22 [History Last Taken Unknown] tamsulosin 0.4 mg capsule 0.4 mg PO DAILY 08/14/22 [History Last Taken Unknown] Allergy/AdvReac Type Severity Reaction Status Date / Time levofloxacin [From Levaquin] AdvReac Intermediate diarrhea, Verified 08/29/22 15:49 dizziness, GI upset, weakness Family History Father Arthritis Bleeding disorder Hypertension Kidney disease Cancer Skin Anemia blood clots Emphysema lung Mother Colon cancer Cancer Lung Cancer Diabetes Brother Thyroid disorder Surgical History H/O cardiac catheterization History of coronary artery stent placement (10/22/13) History of embolic filter insertion History of excision of pilonidal cyst History of heart artery stent History of thymectomy Hx of lymph node excision Presence of IVC filter (04/2021) Status post cardiac surgery Social History household members: spouse Smoking Status: Former smoker Tobacco: How many years used: 55 second hand exposure: Yes alcohol intake: current alcohol intake frequency: holidays/special occasions only substance use type: does not use caffeine: Yes Type: coffee Number of servings: 3 what type of physical activity do you participate in: none frequency: does not exercise seatbelt use: always ROS ROS ED ROS Narrative Constitutional: No fever, no chills. Generalized weakness. HEENT: No sore throat. No neck pain. No loss of vision. No rhinorrhea. Cardiovascular: No chest pain. No palpitations. No pedal edema. Respiratory: No cough, positive shortness of breath and dyspnea on exertion. Abdominal: No abdominal pain. No nausea. No vomiting. Positive black stool times months Genitourinary: No dysuria. No hematuria. Musculoskeletal: No myalgias. No arthralgias. Neurologic: No headaches. No dizziness. No lightheadedness. Skin: No rash. No change in color. Psychiatric: No depression. No anxiety. EXAM Physical Exam Narrative Exam Narrative: Afebrile. Vital signs noted. HEENT: Normocephalic. Atraumatic. PERRL, EOMI. Neck soft and supple. No pointtenderness or step off. Cardiovascular: Regular rate and rhythm. No murmurs, rubs, or gallops appreciated. Respiratory: No tachypnea. Lungs clear to auscultation bilaterally. Decreased breath sounds bilateral bases. Gastrointestinal: Abdomen soft, nontender, with normoactive bowel sounds. No rebound or guarding. Neurological: Awake. Alert. Nonfocal, nonlateralizing. Skin: No rash. Normal color. Mild pallor. Musculoskeletal: No pedal edema. Full range of motion extremities. Const Vital Signs: 08/29/22 15:47 08/29/22 17:30 08/29/22 18:09 Temperature 97 F L Temperature Source Temporal Pulse Rate 88 Pulse Rate [Lying] 74 Pulse Rate [Sitting (for 1 minute prior to obtaining)] 78 Pulse Rate [Standing (for 1 minute prior to obtaining)] 78 Respiratory Rate 19 H Blood Pressure 114/47 L 134/64 H Blood Pressure [Lying] 132/63 H Blood Pressure [Sitting (for 1 minute prior to obtaining)] 127/61 H Blood Pressure [Standing (for 1 minute prior to obtaining)] 126/62 H Blood Pressure Mean 69 87 Blood Pressure Mean [Lying] 86 Blood Pressure Mean [Sitting (for 1 minute prior to obtaining)] 83 Blood Pressure Mean [Standing (for 1 minute prior to obtaining)] 83 Pulse Ox 90 Oxygen Delivery Method Nasal Cannula Oxygen Flow Rate (L/min) 1 MDM MDM MDM Narrative Medical decision making narrative: I reviewed the patient's laboratory work from today and he does have a hemoglobin of 7.8. I will repeat his hemoglobin and BMP along with performed type and screen and obtain an EKG. EKG was obtained and interpreted by myself independently as normal sinus rhythm at 77 bpm without ectopy or acute ST changes. No STEMI. Electronic reading as it is an accelerated junctional rhythm, regardless there are no acute ST changes, no STEMI noted. I reviewed the patient's laboratory work and today a few hours later, his hemoglobin is stable at 7.9, normal platelet count of 264, normal white count of 6.5. BUN is chronically elevated is 29 today with creatinine 1.43 with chronic kidney injury. Type and screen is currently pending. I discussed the patient with the hospitalist, Dr. Dewitt. He also reviewed the patient's laboratory work. It looks like the camera report came back at theend of July. There is no evidence of bleeding however. Dr. Dewitt had discussed the patient with Dr. Galeana who stated without active bleeding, and a stable hemoglobin even from last month, that there was no need for admission forendoscopy. In review of the Endoscopy by camera, he may have 3 lesions that will require Protonix and Carafate. Dr. Dewitt has discussed this with the patient as he has seen him in the emergency department and told him that there was no need to admit him because he would not need endoscopy for cauterization as there is no active bleeding. He had offered him an iron infusion but the patient declined. Dr. Dewitt read discussed the patient with Dr. Galeana andDr. Galeana's office will contact the patient tomorrow to set up outpatient iron infusion. It was thought that he could be discharged as he is not having any active bleeding and does not require more urgent endoscopy. Disposition is discharged home in stable condition. History & Record Review Discussion w/independent historian: Patient and Family Additional record(s) reviewed:: Prior ED visit and Prior labs Lab Data Attestation: I reviewed the patient's lab results. Labs: Laboratory Results - last 24 hr 08/29/22 16:40 WBC 6.5 RBC 2.58 L Hgb 7.9 L Hct 24.7 L MCV 95.7 H MCH 30.6 MCHC 32.0 RDW Std Deviation 50.5 H RDW Coeff of Rafael 14.7 H Plt Count 264 MPV 10.4 Immature Gran % (Auto) 0.900 Neut % (Auto) 68.2 Lymph % (Auto) 15.6 L [place] % (Auto) 10.4 H Eos % (Auto) 4.3 Baso % (Auto) 0.6 Absolute Neuts (auto) 4.5 Absolute Lymphs (auto) 1.02 Nucleated RBC % 0 Sodium 139 Potassium 4.3 Chloride 106 Carbon Dioxide 28.0 Anion Gap 5 BUN 29 H Creatinine 1.43 H Est GFR (MDRD) Af Amer 62 Est GFR (MDRD) Non-Af 52 L BUN/Creatinine Ratio 20.3 H Glucose 338 H Calcium 8.8 Total Bilirubin 0.40 AST 9 L ALT 19 Alkaline Phosphatase 86 Total Protein 7.0 Albumin 3.4 Globulin 3.6 Albumin/Globulin Ratio 0.9 Blood Type AB POSITIVE Antibody Screen NEGATIVE Management Discussion w/another healthcare provider: Hospitalist Discharge Plan Triage Chief Complaint: Weakness ED Provider: Adam Freeman Dx/Rx/DC Orders Clinical Impression: Fatigue, SOB (shortness of breath), Anemia Instructions: ED Anemia, Type Not Specified (Adult), ED Dyspnea, ED Weakness (Uncertain Cause) Prescriptions: No Action cholecalciferol (vitamin D3) 25 mcg (1,000 unit) capsule 25 mcg PO DAILY nitroglycerin [Nitrostat] 0.4 mg tablet, sublingual 0.4 mg SUBLINGUAL Q5M PRN (Reason: chest pain) Qty: 30 0RF Rx Instructions: until response; do not exceed 3 doses per episode metoprolol tartrate 25 mg tablet 12.5 mg PO BID tamsulosin 0.4 mg capsule 0.4 mg PO DAILY finasteride 5 mg tablet 5 mg PO DAILY ferrous sulfate 325 mg (65 mg iron) tablet 325 mg PO BID atorvastatin 40 mg tablet 20 mg PO QHS aspirin 81 mg Tablet,Delayed Release (Dr/Ec) 81 mg PO DAILY mirtazapine [Remeron] 15 mg tablet 7.5 mg PO QHS escitalopram oxalate 10 mg tablet 10 mg PO DAILY 30 Days Qty: 90 3RF budesonide 1 mg/2 mL suspension for nebulization 1 mg inhalation BID Qty: 60 6RF ipratropium-albuterol 0.5 mg-3 mg(2.5 mg base)/3 mL solution for nebulization 3 ml inhalation Q4H PRN PRN (Reason: SOB &/OR WHEEZING) Qty: 180 6RF albuterol sulfate 2.5 mg /3 mL (0.083 %) solution for nebulization 2.5 mg inhalation Q6H PRN (Reason: shortness of breath or wheezing) Qty: 180 6RF ipratropium bromide 0.02 % solution 2.5 ml inhalation Q6H PRN (Reason: shortness of breath or wheezing) Qty: 150 6RF Primary Care Provider: Donna Will Referrals: Donna Will MD [Primary Care Provider] - 3-5 Days if not improving Khai Galeana DO [Med Staff - Active Staff] - As soon as possible Activity Restrictions/Additional Instructions: Follow-up with Dr. Galeana. They will attempt to contact you tomorrow for outpatient iron infusion. If you do not hear from them by 10 AM, call the office. Take your medications as directed. You have prescriptions waiting at [facility] for Carafate and Protonix. Disposition Disposition: Home, Self Care What to do if you have Problems For any increased pain, shortness of breath, bleeding, nausea or vomiting, chestpain, or any unexpected problems, contact your Primary Care Provider. Call [facility] ([phone]) or report to the closest Emergency Room. Call 911 if necessary. 08/29/221820 <Electronically signed by Adam Freeman MD> Cosigner Signature (if applicable): CC: Dr. Donna Will MD ~ Signed [facility] Work Phone: 1(234) 697-466907-06-2023 Hospital Discharge instructions Additional Instructions Follow-up with Dr. Galeana. They will attempt to contact you tomorrow for outpatient iron infusion. If you do not hear from them by 10 AM, call the office. Take your medications as directed. You have prescriptions waiting at [facility] for Carafate and Protonix. [facility] Work Phone: 1(957) 385-246504-12-2023 Procedure [facility] 05-16-2022 [facility]03-21-2023 Procedure note [facility]01-27-2023 Procedure [facility] 04-24-2021 Evaluation note* Diagnosis Onset Date Resolution Status Chronic hypoxemic respiratory failure chronic COPD (chronic obstructive pulmonary disease) chronic Tobacco abuse chronic GI bleed April, chronic Iron deficiency anemia chron ic Iron deficiency anemia chron ic 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 Iron deficiency anemia chron ic 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 GI bleed April, chronic Iron deficiency anemia chron ic Nicotine dependence, cigarettes, in remission acute Atherosclerosis of coronary artery of [place] heart without angina pectoris chronic Chronic hypoxemic respiratory failure chronic COPD (chronic obstructive pulmonary disease) chronic Essential hypertension chron ic GI bleed April, chronic Iron deficiency anemia chron ic Obesity chronic Type 2 diabetes mellitus [facility] Work Phone: 1(470) 382-953703-01-2022 Evaluation note* Diagnosis Onset Date Resolution Status Iron deficiency anemia chron ic 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 Iron deficiency anemia chron ic 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 GI bleed April, chronic Iron deficiency anemia chron ic Nicotine dependence, cigarettes, in remission acute Atherosclerosis of coronary artery of [place] heart without angina pectoris chronic Chronic hypoxemic respiratory failure chronic COPD (chronic obstructive pulmonary disease) chronic Essential hypertension chron ic GI bleed April, chronic Iron deficiency anemia chron ic Obesity chronic Type 2 diabetes mellitus chr onic Anemia chronic Iron deficiency anemia chron ic 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 Atherosclerosis of coronary artery of [place] heart without angina pectoris chronic Essential hypertension chron ic Hyperlipidemia chronic Iron deficiency anemia chron ic Anemia chronic Iron deficiency anemia chron ic 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 Anemia chronic Iron deficiency anemia chron ic 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 Bilateral pleural effusion a cute Chronic iron deficiency anemia acute Heart failure acute Hypoxia acute Acute and chronic respiratory failure with hypoxia chronic Chronic kidney disease (CKD), stage III (moderate) chronic Essential hypertension chron ic Hyperlipidemia chronic Type 2 diabetes mellitus [facility] Work Phone: Consult note Author Kellen Sanchez [facility] March 06, 2023 4:39pm Note Date/Time March 06, 2023 4 :39pm [facility] Medical Records Department [address] [place], [place] [address] [address] Counseling Note - Pharmacy 03/06/23 1636 MR#: [id number] Acct: [id number] Name: JAYDON ALONZO Jr. Rep #:[id number] : 1950 72 From: Kellen Sanchez PCP: Dr. Donna Will MD Status:ADM IN Y [id number] has performed discharge medication reconciliation and counseling for this patient. 1. APIXABAN 5MG PO BID 2. AZITHROMYCIN 500MG PO DAILY X 3 DAYS 3. GUAIFENESIN 1200MG PO BID 4. FUROSEMIDE 40MG PO DAILY 5. PREDNISONE 20MG PO BID X 5 DAYS The patient's discharge medication list was reviewed for discrepancies and discrepancies were resolved. The patient was counseled on the following discharge medications and changes in medications for homegoing were reviewed. The Reason for Use, instructions for use, and potential side effects were reviewed for all new medications. The patient's questions regarding all of their medications were answered. The patient was able to verbally demonstrate an understanding of their dischargemedications. Medications at Discharge Home Medications nitroglycerin 0.4 mg sublingual tablet (Nitrostat) 0.4 mg sublingual Q5M PRN chest pain #30 tabs 09/25/20 atorvastatin 40 mg tablet 20 mg PO QHS cholesterol 10/09/21 aspirin 81 mg tablet,delayed release 81 mg PO DAILY heart health 12/31/21 finasteride 5 mg tablet 5 mg PO DAILY prostate 08/14/22 tamsulosin 0.4 mg capsule 0.4 mg PO DAILY prostate 08/14/22 ferrous sulfate 325 mg (65 mg iron) tablet 325 mg PO DAILY iron supplement 09/13/22 multivitamin 1 tab PO DAILY vitamin 09/13/22 pantoprazole 40 mg tablet,delayed release 40 mg PO BID reflux #180 tabs 09/23/22 escitalopram oxalate 10 mg tablet 10 mg PO DAILY mood 90 days #90 tabs 10/14/22 mirtazapine 15 mg tablet (Remeron) 7.5 mg (1/2 x 15 mg) PO QHS sleep #90 tabs 11/04/22 budesonide 1 mg/2 mL suspension for nebulization 1 mg inhalation Q12H lungs 11/15/22 albuterol sulfate 2.5 mg/3 mL (0.083 %) solution for nebulization 2.5 mg (3 mL) inhalation Q4H PRN Sob &/Or Wheezing #540 mL 01/13/23 ipratropium bromide 0.02 % solution for inhalation 2.5 ml inhalation Q6H PRN shortness of breath or wheezing #150 mL 01/13/23 azithromycin 500 mg tablet 500 mg PO DAILY 3 days #3 tabs 03/02/23 guaifenesin 1,200 mg tablet, extended release 12 hr (Mucus Relief ER) 1,200 mg PO BID 10 days #20 tabs 03/02/23 prednisone 20 mg tablet 20 mg PO BID #10 tabs 03/02/23 furosemide 40 mg tablet (Lasix) 40 mg PO DAILY #30 tabs 03/04/23 apixaban 5 mg tablet (Eliquis) 5 mg PO BID 30 days #60 tabs 03/06/23 03/06/23 1639 <Electronically signed by Kellen Sanchez> Date _ Kellen Sanchez Cosigner Signature (if applicable): Date CC: ~ Signed [facility] Work Phone: Evaluation note* Diagnosis Onset Date Resolution Status COVID-19 acute Acute hypoxemic respiratory failure due to COVID-19 resolved Encephalopathy acute resolve d FTT (failure to thrive) in adult resolved Hypoxia resolved COVID-19 acute Atherosclerosis of coronary artery of [place] without angina pectoris chronic Hyperlipidemia chronic Acute hypoxemic respiratory failure due to COVID-19 resolved Acute alteration in mental status resolved Acute respiratory failure with hypoxia resolved Hypoxemia resolved Pneumonia resolved Pneumonia acute Asthma chronic Atherosclerosis of coronary artery of [place] without angina pectoris chronic Chronic bronchitis chronic History of coronary artery stent placement September, chronic History of diabetes mellitus, type II chronic History of non-Hodgkin's lymphoma chronic Hyperlipidemia chronic Obesity chronic FTT (failure to thrive) in adult acute Physical debility acute Pulmonary embolism acute Acute on chronic respiratory failure with hypoxemia chronic History of non-Hodgkin's lymphoma chronic Tobacco use chronic Acute alteration in mental status resolved Hypoxemia resolved Ileus resolved Acute respiratory failure with hypoxia acute Asthma acute Coronary artery disease acut e COVID-19 acute Debility acute Diabetes mellitus acute Hyperglycemia acute Hyperlipidemia acute Iron deficiency anemia acute Pneumonia acute Pulmonary embolism acute Rhinovirus acute Vitamin B12 deficiency acute Vitamin D deficiency acute Chronic obstructive pulmonary disease chronic Acute deep vein thrombosis (DVT) acute Anemia acute Acute on chronic respiratory failure with hypoxemia chronic Dyspnea resolved Pleural effusion resolved Appetite loss acute Coronary artery disease acut e Debility acute Diabetes mellitus acute Hyperlipidemia acute Iron deficiency anemia acute Non Hodgkin's lymphoma acute Vitamin B12 deficiency acute Vitamin D deficiency acute Acute and chronic respiratory failure resolved Acute anemia resolved Asthma resolved COVID-19 resolved Gastrointestinal bleeding re solved Pneumonia resolved Pulmonary embolism resolved Septic shock resolved Appetite loss acute Coronary artery disease acut e COVID-19 acute Diabetes mellitus acute Hyperlipidemia acute Vitamin B12 deficiency acute Vitamin D deficiency acute Chronic obstructive pulmonary disease chronic [facility] Work Phone: Evaluation note* Diagnosis Onset Date Resolution Status Acute alteration in mental status resolved Acute respiratory failure with hypoxia resolved Hypoxemia resolved Pneumonia resolved Pneumonia acute Asthma chronic Atherosclerosis of coronary artery of [place] without angina pectoris chronic Chronic bronchitis chronic History of coronary artery stent placement September, chronic History of diabetes mellitus, type II chronic History of non-Hodgkin's lymphoma chronic Hyperlipidemia chronic Obesity chronic FTT (failure to thrive) in adult acute Physical debility acute Pulmonary embolism acute Acute on chronic respiratory failure with hypoxemia chronic History of non-Hodgkin's lymphoma chronic Tobacco use chronic Acute alteration in mental status resolved Hypoxemia resolved Ileus resolved Acute respiratory failure with hypoxia acute Asthma acute Coronary artery disease acut e COVID-19 acute Debility acute Diabetes mellitus acute Hyperglycemia acute Hyperlipidemia acute Iron deficiency anemia acute Pneumonia acute Pulmonary embolism acute Rhinovirus acute Vitamin B12 deficiency acute Vitamin D deficiency acute Chronic obstructive pulmonary disease chronic Acute deep vein thrombosis (DVT) acute Anemia acute Acute on chronic respiratory failure with hypoxemia chronic Dyspnea resolved Pleural effusion resolved Appetite loss acute Coronary artery disease acut e Debility acute Diabetes mellitus acute Hyperlipidemia acute Iron deficiency anemia acute Non Hodgkin's lymphoma acute Vitamin B12 deficiency acute Vitamin D deficiency acute Acute and chronic respiratory failure resolved Acute anemia resolved Asthma resolved COVID-19 resolved Gastrointestinal bleeding re solved Pneumonia resolved Pulmonary embolism resolved Septic shock resolved Appetite loss acute Coronary artery disease acut e COVID-19 acute Diabetes mellitus acute Hyperlipidemia acute Vitamin B12 deficiency acute Vitamin D deficiency acute Chronic obstructive pulmonary disease chronic Acute respiratory failure with hypoxia acute Asthma acute Acute on chronic respiratory failure with hypoxemia chronic Chronic obstructive pulmonary disease chronic Acute respiratory failure with hypoxia acute Debility acute Diabetes mellitus acute FTT (failure to thrive) in adult acute Hyperlipidemia acute Hypoalbuminemia acute Iron deficiency anemia acute Pneumonia acute Chronic obstructive pulmonary disease chronic History of diabetes mellitus, type II chronic [facility] Work Phone: Evaluation note* Diagnosis Onset Date Resolution Status Acute alteration in mental status resolved Acute respiratory failure with hypoxia resolved Hypoxemia resolved Pneumonia resolved Pneumonia acute Asthma chronic Atherosclerosis of coronary artery of [place] without angina pectoris chronic Chronic bronchitis chronic History of coronary artery stent placement September, chronic History of diabetes mellitus, type II chronic History of non-Hodgkin's lymphoma chronic Hyperlipidemia chronic Obesity chronic FTT (failure to thrive) in adult acute Physical debility acute Pulmonary embolism acute Acute on chronic respiratory failure with hypoxemia chronic History of non-Hodgkin's lymphoma chronic Tobacco use chronic Acute alteration in mental status resolved Hypoxemia resolved Ileus resolved Acute respiratory failure with hypoxia acute Asthma acute Coronary artery disease acut e COVID-19 acute Debility acute Diabetes mellitus acute Hyperglycemia acute Hyperlipidemia acute Iron deficiency anemia acute Pneumonia acute Pulmonary embolism acute Rhinovirus acute Vitamin B12 deficiency acute Vitamin D deficiency acute Chronic obstructive pulmonary disease chronic Acute deep vein thrombosis (DVT) acute Anemia acute Acute on chronic respiratory failure with hypoxemia chronic Dyspnea resolved Pleural effusion resolved Appetite loss acute Coronary artery disease acut e Debility acute Diabetes mellitus acute Hyperlipidemia acute Iron deficiency anemia acute Non Hodgkin's lymphoma acute Vitamin B12 deficiency acute Vitamin D deficiency acute Acute and chronic respiratory failure resolved Acute anemia resolved Asthma resolved COVID-19 resolved Gastrointestinal bleeding re solved Pneumonia resolved Pulmonary embolism resolved Septic shock resolved Appetite loss acute Coronary artery disease acut e COVID-19 acute Diabetes mellitus acute Hyperlipidemia acute Vitamin B12 deficiency acute Vitamin D deficiency acute Chronic obstructive pulmonary disease chronic Acute respiratory failure with hypoxia acute Asthma acute Acute on chronic respiratory failure with hypoxemia chronic Chronic obstructive pulmonary disease chronic Acute respiratory failure with hypoxia acute Debility acute Diabetes mellitus acute FTT (failure to thrive) in adult acute Hyperlipidemia acute Hypoalbuminemia acute Iron deficiency anemia acute Pneumonia acute Chronic obstructive pulmonary disease chronic History of diabetes mellitus, type II chronic Generalized weakness acute Pneumonia acute [facility] Work Phone: Evaluation note* Diagnosis Onset Date Resolution Status Appetite loss acute Coronary artery disease acut e Debility acute Diabetes mellitus acute Hyperlipidemia acute Iron deficiency anemia acute Non Hodgkin's lymphoma acute Vitamin B12 deficiency acute Vitamin D deficiency acute Acute and chronic respiratory failure resolved Acute anemia resolved Asthma resolved COVID-19 resolved Gastrointestinal bleeding re solved Pneumonia resolved Pulmonary embolism resolved Septic shock resolved Appetite loss acute Coronary artery disease acut e COVID-19 acute Diabetes mellitus acute Hyperlipidemia acute Vitamin B12 deficiency acute Vitamin D deficiency acute Chronic obstructive pulmonary disease chronic Acute respiratory failure with hypoxia acute Asthma acute Acute on chronic respiratory failure with hypoxemia chronic Chronic obstructive pulmonary disease chronic Acute respiratory failure with hypoxia acute Debility acute Diabetes mellitus acute FTT (failure to thrive) in adult acute Hyperlipidemia acute Hypoalbuminemia acute Iron deficiency anemia acute Pneumonia acute Chronic obstructive pulmonary disease chronic History of diabetes mellitus, type II chronic Generalized weakness resolve d Pneumonia resolved Acute deep vein thrombosis (DVT) acute Iron deficiency anemia acute Pulmonary embolism acute Swelling of lower extremity acute [facility] Work Phone: Evaluation note* Diagnosis Onset Date Resolution Status Acute on chronic respiratory failure with hypoxemia chronic Chronic obstructive pulmonary disease chronic Chronic obstructive pulmonary disease chronic Hyperlipidemia chronic Generalized weakness resolve d Pneumonia resolved Iron deficiency anemia chron ic Swelling of lower extremity chronic Hypoxia acute Leukocytosis acute Pneumonia acute [facility] Work Phone: Evaluation note* Diagnosis Onset Date Resolution Status Acute on chronic respiratory failure with hypoxemia chronic Chronic obstructive pulmonary disease chronic Chronic obstructive pulmonary disease chronic Hyperlipidemia chronic Generalized weakness resolve d Pneumonia resolved Iron deficiency anemia chron ic Swelling of lower extremity chronic Pneumonia acute Hypoxia resolved Leukocytosis resolved Atherosclerosis of coronary artery of [place] without angina pectoris chronic Essential hypertension chron ic Hyperlipidemia chronic Iron deficiency anemia chron ic Iron deficiency anemia chron ic 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 Acute on chronic respiratory failure with hypoxemia chronic Chronic obstructive pulmonary disease chronic COPD exacerbation chronic Essential hypertension chron ic Iron deficiency anemia chron ic 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 Type 2 diabetes mellitus chr onic [facility] Work Phone: Evaluation note* Diagnosis Onset Date Resolution Status Iron deficiency anemia chron ic Swelling of lower extremity chronic Pneumonia acute Hypoxia resolved Leukocytosis resolved Atherosclerosis of coronary artery of [place] without angina pectoris chronic Essential hypertension chron ic Hyperlipidemia chronic Iron deficiency anemia chron ic Iron deficiency anemia chron ic 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 Acute on chronic respiratory failure with hypoxemia chronic Chronic obstructive pulmonary disease chronic COPD exacerbation chronic Essential hypertension chron ic Iron deficiency anemia chron ic 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 Type 2 diabetes mellitus chr onic Acute dyspnea acute Exertional dyspnea acute Leukocytosis acute Pneumonia acute COPD exacerbation [facility] Work Phone: Evaluation note* Diagnosis Onset Date Resolution Status Iron deficiency anemia chron ic Swelling of lower extremity chronic Pneumonia acute Hypoxia resolved Leukocytosis resolved Atherosclerosis of coronary artery of [place] without angina pectoris chronic Essential hypertension chron ic Hyperlipidemia chronic Iron deficiency anemia chron ic Iron deficiency anemia chron ic 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 Acute on chronic respiratory failure with hypoxemia chronic Chronic obstructive pulmonary disease chronic COPD exacerbation chronic Essential hypertension chron ic Iron deficiency anemia chron ic 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 Type 2 diabetes mellitus chr onic Acute dyspnea acute Exertional dyspnea acute Leukocytosis acute Pneumonia acute COPD exacerbation chronic Iron deficiency anemia chron ic [facility] Work Phone: Evaluation note* Diagnosis Onset Date Resolution Status Iron deficiency anemia chron ic Swelling of lower extremity chronic Hypoxia resolved Leukocytosis resolved Pneumonia resolved Atherosclerosis of coronary artery of [place] without angina pectoris chronic Essential hypertension chron ic Hyperlipidemia chronic Iron deficiency anemia chron ic Iron deficiency anemia chron ic 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 Acute on chronic respiratory failure with hypoxemia chronic Chronic obstructive pulmonary disease chronic COPD exacerbation chronic Essential hypertension chron ic Iron deficiency anemia chron ic 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 Type 2 diabetes mellitus chr onic Iron deficiency anemia chron ic Acute dyspnea resolved COPD exacerbation resolved Exertional dyspnea resolved Leukocytosis resolved Pneumonia resolved Iron deficiency anemia chron ic Iron deficiency anemia chron ic 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 [facility] Work Phone: Evaluation note* Diagnosis Onset Date Resolution Status Hypoxia resolved Leukocytosis resolved Pneumonia resolved Atherosclerosis of coronary artery of [place] without angina pectoris chronic Essential hypertension chron ic Hyperlipidemia chronic Iron deficiency anemia chron ic Iron deficiency anemia chron ic 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 Acute on chronic respiratory failure with hypoxemia chronic Chronic obstructive pulmonary disease chronic COPD exacerbation chronic Essential hypertension chron ic Iron deficiency anemia chron ic 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 Type 2 diabetes mellitus chr onic Iron deficiency anemia chron ic Acute dyspnea resolved COPD exacerbation resolved Exertional dyspnea resolved Leukocytosis resolved Pneumonia resolved Iron deficiency anemia chron ic Iron deficiency anemia chron ic 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 [facility] Work Phone: Evaluation note* Diagnosis Onset Date Resolution Status Acute on chronic respiratory failure with hypoxemia chronic Chronic obstructive pulmonary disease chronic COPD exacerbation chronic Essential hypertension chron ic Iron deficiency anemia chron ic 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 Type 2 diabetes mellitus chr onic Iron deficiency anemia chron ic Acute dyspnea resolved COPD exacerbation resolved Exertional dyspnea resolved Leukocytosis resolved Pneumonia resolved Iron deficiency anemia chron ic Iron deficiency anemia chron ic 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 Iron deficiency anemia chron ic 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 Acute encephalopathy acute Bilateral pneumonia acute Debility acute Hypoxemia acute [facility] Work Phone: Evaluation note* Diagnosis Onset Date Resolution Status Acute on chronic respiratory failure with hypoxemia chronic Chronic obstructive pulmonary disease chronic COPD exacerbation chronic Essential hypertension chron ic Iron deficiency anemia chron ic 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 Type 2 diabetes mellitus chr onic Iron deficiency anemia chron ic Acute dyspnea resolved COPD exacerbation resolved Exertional dyspnea resolved Leukocytosis resolved Pneumonia resolved Iron deficiency anemia chron ic Iron deficiency anemia chron ic 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 Iron deficiency anemia chron ic 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 Acute encephalopathy acute Bilateral pneumonia acute Debility acute Hypoxemia acute Acute on chronic respiratory failure with hypoxemia chronic Chronic obstructive pulmonary disease [facility] Work Phone: Evaluation note* Diagnosis Onset Date Resolution Status Iron deficiency anemia chron ic Acute dyspnea resolved COPD exacerbation resolved Exertional dyspnea resolved Leukocytosis resolved Pneumonia resolved Iron deficiency anemia chron ic Iron deficiency anemia chron ic 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 Iron deficiency anemia chron ic 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 Chronic obstructive pulmonary disease chronic Acute encephalopathy resolve d Acute on chronic respiratory failure with hypoxemia resolved Bilateral pneumonia resolved Debility resolved Hypoxemia resolved History of airway aspiration acute Nicotine dependence, cigarettes, in remission acute Chronic hypoxemic respiratory failure chronic COPD (chronic obstructive pulmonary disease) [facility] Work Phone: Evaluation note* Diagnosis Onset Date Resolution Status Iron deficiency anemia chron ic 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 Chronic obstructive pulmonary disease chronic Acute encephalopathy resolve d Acute on chronic respiratory failure with hypoxemia resolved Bilateral pneumonia resolved Debility resolved Hypoxemia resolved History of airway aspiration acute Nicotine dependence, cigarettes, in remission acute Chronic hypoxemic respiratory failure chronic COPD (chronic obstructive pulmonary disease) chronic Hematuria acute Iron deficiency anemia chron ic 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 [facility] Work Phone: Evaluation note* Diagnosis Onset Date Resolution Status Chronic obstructive pulmonary disease chronic Acute encephalopathy resolve d Acute on chronic respiratory failure with hypoxemia resolved Bilateral pneumonia resolved Debility resolved Hypoxemia resolved History of airway aspiration acute Nicotine dependence, cigarettes, in remission acute Chronic hypoxemic respiratory failure chronic COPD (chronic obstructive pulmonary disease) chronic Hematuria acute Iron deficiency anemia chron ic 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 Chronic hypoxemic respiratory failure chronic COPD (chronic obstructive pulmonary disease) chronic Tobacco abuse [facility] Work Phone: Evaluation note* Diagnosis Onset Date Resolution Status History of airway aspiration acute Nicotine dependence, cigarettes, in remission acute Chronic hypoxemic respiratory failure chronic COPD (chronic obstructive pulmonary disease) chronic Hematuria acute Iron deficiency anemia chron ic 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 Chronic hypoxemic respiratory failure chronic COPD (chronic obstructive pulmonary disease) chronic Tobacco abuse chronic GI bleed April, chronic Iron deficiency anemia chron ic [facility] Work Phone: Evaluation note* Diagnosis Onset Date Resolution Status Anemia chronic Iron deficiency anemia chron ic 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 Bilateral pleural effusion a cute Chronic iron deficiency anemia acute Heart failure acute Chronic kidney disease (CKD), stage III (moderate) chronic Essential hypertension chron ic Hyperlipidemia chronic Type 2 diabetes mellitus chr onic Acute and chronic respiratory failure with hypoxia resolved Hypoxia resolved Bilateral pleural effusion a cute Chronic iron deficiency anemia acute Heart failure acute Atherosclerosis of coronary artery of [place] without angina pectoris chronic Chronic kidney disease (CKD), stage III (moderate) chronic Chronic obstructive pulmonary disease chronic Type 2 diabetes mellitus chr onic Acute and chronic respiratory failure with hypoxia resolved Hypoxia resolved Anemia chronic Iron deficiency anemia chron ic 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 Anemia chronic Iron deficiency anemia chron ic 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 Chronic hypoxemic respiratory failure chronic COPD (chronic obstructive pulmonary disease) chronic Nicotine dependence, cigarettes, in remission [facility] Work Phone: Evaluation note* Diagnosis Onset Date Resolution Status Bilateral pleural effusion a cute Chronic iron deficiency anemia acute Heart failure acute Chronic kidney disease (CKD), stage III (moderate) chronic Essential hypertension chron ic Hyperlipidemia chronic Type 2 diabetes mellitus chr onic Acute and chronic respiratory failure with hypoxia resolved Hypoxia resolved Bilateral pleural effusion a cute Chronic iron deficiency anemia acute Heart failure acute Atherosclerosis of coronary artery of [place] without angina pectoris chronic Chronic kidney disease (CKD), stage III (moderate) chronic Chronic obstructive pulmonary disease chronic Type 2 diabetes mellitus chr onic Acute and chronic respiratory failure with hypoxia resolved Hypoxia resolved Anemia chronic Iron deficiency anemia chron ic 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 Anemia chronic Iron deficiency anemia chron ic 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 Chronic hypoxemic respiratory failure chronic COPD (chronic obstructive pulmonary disease) chronic Nicotine dependence, cigarettes, in remission chronic Acute dyspnea acute Acute hyperkalemia acute Anemia acute Pleural effusion on right ac [place] History of chronic kidney disease chronic History of COPD chronic [facility] Work Phone: Evaluation note* Diagnosis Onset Date Resolution Status Bilateral pleural effusion a cute Chronic iron deficiency anemia acute Heart failure acute Chronic kidney disease (CKD) , stage III (moderate) chronic Essential hypertension chron ic Hyperlipidemia chronic Type 2 diabetes mellitus chr onic Acute and chronic respirator y failure with hypoxia resolved Hypoxia resolved Bilateral pleural effusion a cute Chronic iron deficiency anemia acute Heart failure acute Atherosclerosis of coronary artery of [place] heart without angina pectoris chronic Chronic kidney disease (CKD) , stage III (moderate) chronic Chronic obstructive pulmonary disease chronic Type 2 diabetes mellitus chr onic Acute and chronic respirator y failure with hypoxia resolved Hypoxia resolved Anemia chronic Iron deficiency anemia chron ic Iron deficiency anemia refra ctory to iron therapy chronic Anemia chronic Iron deficiency anemia chron ic Iron deficiency anemia refra ctory to iron therapy chronic Chronic hypoxemic respiratory failure chronic COPD (chronic obstructive pulmonary disease) chronic Nicotine dependence, cigarettes, in remission chronic Acute dyspnea acute Acute hyperkalemia acute Anemia acute Heart failure acute Pleural effusion on right [place] COPD exacerbation chronic History of chronic kidney disease chronic History of COPD chronic History of coronary artery stent placement September chronic Type 2 diabetes mellitus chr onic History of pulmonary embolus (PE) April 30, 2021 resolved [facility] Work Phone: Evaluation note* Diagnosis Onset Date Resolution Status Bilateral pleural effusion a cute Chronic iron deficiency anemia acute Heart failure acute Chronic kidney disease (CKD) , stage III (moderate) chronic Essential hypertension chron ic Hyperlipidemia chronic Type 2 diabetes mellitus chr onic Acute and chronic respirator y failure with hypoxia resolved Hypoxia resolved Bilateral pleural effusion a cute Chronic iron deficiency anemia acute Heart failure acute Atherosclerosis of coronary artery of [place] without angina pectoris chronic Chronic kidney disease (CKD) , stage III (moderate) chronic Chronic obstructive pulmonary disease chronic Type 2 diabetes mellitus chr onic Acute and chronic respirator y failure with hypoxia resolved Hypoxia resolved Anemia chronic Iron deficiency anemia chron ic Iron deficiency anemia refra ctory to iron therapy chronic Anemia chronic Iron deficiency anemia chron ic Iron deficiency anemia refra ctory to iron therapy chronic Chronic hypoxemic respiratory failure chronic COPD (chronic obstructive pulmonary disease) chronic Nicotine dependence, cigarettes, in remission chronic Acute dyspnea acute Heart failure acute Pleural effusion on right [place] COPD exacerbation chronic History of chronic kidney disease chronic History of COPD chronic History of coronary artery stent placement September chronic Type 2 diabetes mellitus chr onic Acute hyperkalemia resolved Anemia resolved History of pulmonary embolus (PE) April 30, 2021 resolved Acute anemia acute Acute lactic acidosis acute LUIS (acute kidney injury) [place] Elevated troponin I level [place] Fall acute Fatigue acute Hemorrhagic shock acute Hyperglycemia acute Hypotension acute Leukocytosis acute Pleural effusion on right [place] [facility] Work Phone: Evaluation note* Diagnosis Onset Date Resolution Status Anemia chronic Iron deficiency anemia chron ic Iron deficiency anemia refra ctory to iron therapy chronic Chronic hypoxemic respiratory failure chronic COPD (chronic obstructive pulmonary disease) chronic Nicotine dependence, cigarettes, in remission chronic Acute dyspnea acute Heart failure acute Pleural effusion on right [place] COPD exacerbation chronic History of chronic kidney disease chronic History of COPD chronic History of coronary artery stent placement September chronic Type 2 diabetes mellitus chr onic Acute hyperkalemia resolved Anemia resolved History of pulmonary embolus (PE) April 30, 2021 resolved Acute anemia acute Acute hyperglycemia acute Acute lactic acidosis acute LUIS (acute kidney injury) [place] Elevated troponin I level [place] Fall acute Fatigue acute Hemorrhagic shock acute Hyperglycemia acute Hypotension acute Leukocytosis acute Pleural effusion on right [place] S[place]ope acute Acute on chronic blood loss anemia chronic Acute kidney injury superimposed on CKD resolved Acute upper GI bleed resolve d Chronic iron deficiency anemia acute Hemorrhagic shock acute Chronic kidney disease (CKD) , stage III (moderate) chronic COPD (chronic obstructive pulmonary disease) chronic History of COPD chronic Type 2 diabetes mellitus chr onic Acute kidney injury superimposed on CKD resolved Acute upper GI bleed resolve d [facility] Work Phone: Evaluation note* Diagnosis Onset Date Resolution Status Anemia chronic Iron deficiency anemia chron ic Iron deficiency anemia refra ctory to iron therapy chronic Chronic hypoxemic respiratory failure chronic COPD (chronic obstructive pulmonary disease) chronic Nicotine dependence, cigarettes, in remission chronic Acute dyspnea acute Heart failure acute Pleural effusion on right [place] COPD exacerbation chronic History of chronic kidney disease chronic History of COPD chronic History of coronary artery stent placement September chronic Type 2 diabetes mellitus chr onic Acute hyperkalemia resolved Anemia resolved History of pulmonary embolus (PE) April 30, 2021 resolved Acute anemia acute Acute hyperglycemia acute Acute lactic acidosis acute LUIS (acute kidney injury) [place] Elevated troponin I level [place] Fall acute Fatigue acute Hemorrhagic shock acute Hyperglycemia acute Hypotension acute Leukocytosis acute Pleural effusion on right [place]ope acute Acute on chronic blood loss anemia chronic Acute kidney injury superimposed on CKD resolved Acute upper GI bleed resolve d Chronic iron deficiency anemia acute Hemorrhagic shock acute Chronic kidney disease (CKD) , stage III (moderate) chronic COPD (chronic obstructive pulmonary disease) chronic History of COPD chronic Type 2 diabetes mellitus chr onic Acute kidney injury superimposed on CKD resolved Acute upper GI bleed resolve d Fall acute Acute on chronic blood loss anemia chronic Anemia chronic Chronic kidney disease (CKD) , stage III (moderate) chronic Essential hypertension chron ic History of coronary artery stent placement September chronic Type 2 diabetes mellitus chr onic HFrEF (heart failure with re duced ejection fraction) acute Atherosclerosis of coronary artery of [place] without angina pectoris chronic Essential hypertension chron ic History of coronary artery stent placement September chronic Hyperlipidemia chronic Iron deficiency anemia chron ic [facility] Work Phone: Evaluation note* Diagnosis Onset Date Resolution Status Acute dyspnea acute Heart failure acute Pleural effusion on right [place] COPD exacerbation chronic History of chronic kidney disease chronic History of COPD chronic History of coronary artery stent placement September chronic Type 2 diabetes mellitus chr onic Acute hyperkalemia resolved Anemia resolved History of pulmonary embolus (PE) April 30, 2021 resolved Acute anemia acute Acute hyperglycemia acute Acute lactic acidosis acute LUIS (acute kidney injury) [place] Elevated troponin I level [place] Fall acute Fatigue acute Hemorrhagic shock acute Hyperglycemia acute Hypotension acute Leukocytosis acute Pleural effusion on right [place] acute Acute on chronic blood loss anemia chronic Acute kidney injury superimposed on CKD resolved Acute upper GI bleed resolve d Chronic iron deficiency anemia acute Hemorrhagic shock acute Chronic kidney disease (CKD) , stage III (moderate) chronic COPD (chronic obstructive pulmonary disease) chronic History of COPD chronic Type 2 diabetes mellitus chr onic Acute kidney injury superimposed on CKD resolved Acute upper GI bleed resolve d Fall acute Acute on chronic blood loss anemia chronic Anemia chronic Chronic kidney disease (CKD) , stage III (moderate) chronic Essential hypertension chron ic History of coronary artery stent placement September chronic Type 2 diabetes mellitus chr onic HFrEF (heart failure with re duced ejection fraction) acute Essential hypertension chron ic History of coronary artery stent placement September chronic Hyperlipidemia chronic Iron deficiency anemia chron ic Iron deficiency anemia refra ctory to iron therapy chronic Iron deficiency anemia refra ctory to iron therapy [facility]: [facility] Work Phone: Hospital Discharge instructionsAmbulatory Orders* Prior Authorization Referral - ONC/HEM Location: None Selected [facility] Work Phone: Summary Purpose Family History No Family History Records Found Relationship Condition Age at Onset Recorded Date/T ada father Arthritis Unknown Hemorrhagic disorder Unknown Hypertension Unknown Kidney disorder Unknown Malignant neoplasm Unknown Anemia Unknown Unknown Pulmonary emphysema Unknown mother Malignant neoplasm of colon Unknown Diabetes mellitus Unknown brother Disorder of thyroid Unknown Advance Directives No Advanced Directives Records Found Advance Directive Response Recorded Date/ Time Advance Directives No March 14, 2021 5:03pm Living Will No May 07, 2021 5:39pm Power of Supervisor Machine Setter No May 07 5:39pm Advance Directive Response Recorded Date/ Time Advance Directives No July 24 8:49am Living Will No July 24, 2021 8 :49am Power of Supervisor Machine Setter No July 24, 2021 8:49am Advance Directive Response Recorded Date/ Time Advance Directives No July 24 8:49am Living Will No August 06, 2021 12:10pm Power of Supervisor Machine Setter No August 06 12:10pm Advance Directive Response Recorded Date/ Time Advance Directives No July 24 8:49am Living Will No August 06, 2021 4:39pm Power of Supervisor Machine Setter Yes August 06 4:39pm Advance Directive Response Recorded Date/ Time Name of Medical Power of Supervisor Machine Setter Freida Alonzo August 06, 2021 4:39pm Advance Directives No July 24 8:49am Living Will No August 06, 2021 4:39pm Power of Supervisor Machine Setter Yes August 06 4:39pm Advance Directive Response Recorded Date/ Time Name of Medical Power of Supervisor Machine Setter Freida Cheri August 06, 2021 4:39pm Advance Directives No July 24 8:49am Living Will No October 01, 2021 2:51pm Power of Supervisor Machine Setter No October 01 2:51pm Advance Directive Response Recorded Date/ Time Name of Medical Power of Supervisor Machine Setter Freida Cheri August 06, 2021 4:39pm Name of Medical Power of Supervisor Machine Setter Freida Cheri October 01, 2021 7:57pm Advance Directives No July 24 8:49am Living Will Yes October 01, 2021 7:57pm Power of Supervisor Machine Setter Yes October 01 7:57pm Advance Directive Response Recorded Date/ Time Name of Medical Power of Supervisor Machine Setter Freida Cheri August 06, 2021 4:39pm Name of Medical Power of Supervisor Machine Setter Freida Cheri October 01, 2021 7:57pm Name of Medical Power of Supervisor Machine Setter freida [email or web address] October 23, 2021 2:40pm Advance Directives No July 24 8:49am Living Will Yes October 23 2:40pm Power of Supervisor Machine Setter Yes October 23 022 2:40pm Advance Directive Response Recorded Date/ Time Name of Medical Power of Supervisor Machine Setter Freida Cheri October 01, 2021 7:57pm Name of Medical Power of Supervisor Machine Setter freida [email or web address] October 23, 2021 2:40pm Name of Medical Power of Supervisor Machine Setter FREIDA CHERI December 08, 2021 5:32pm Advance Directives No July 24 8:49am Living Will Yes December 08 5:32pm Power of Supervisor Machine Setter Yes December 08, 2021 5:32pm Advance Directive Response Recorded Date/ Time Name of Medical Power of Supervisor Machine Setter Freida Newton October 01, 2021 7:57pm Name of Medical Power of Supervisor Machine Setter freida zackel October 23, 2021 2:40pm Name of Medical Power of Supervisor Machine Setter FREIDA CHERI December 08, 2021 8:10pm Advance Directives No July 24 8:49am Living Will Yes December 08 8:10pm Power of Supervisor Machine Setter Yes December 08, 2021 8:10pm Advance Directive Response Recorded Date/ Time Name of Medical Power of Supervisor Machine Setter Freidajovana Alonzo October 01, 2021 6:57pm Name of Medical Power of Supervisor Machine Setter freidajovana roberts October 23, 2021 1:40pm Name of Medical Power of Supervisor Machine Setter FREIDA CHERI December 08, 2021 7:10pm Advance Directives No July 24 7:49am Living Will Yes December 08 7:10pm Power of Supervisor Machine Setter Yes December 08, 2021 7:10pm Advance Directive Response Recorded Date/ Time Name of Medical Power of Supervisor Machine Setter freidajovana roberts October 23, 2021 1:40pm Name of Medical Power of Supervisor Machine Setter FREIDA CHERI December 08, 2021 7:10pm Name of Medical Power of Supervisor Machine Setter joseph alonzo February 14, 2022 4:33pm Advance Directives No July 24 7:49am Living Will Yes February 14 4:33pm Power of Supervisor Machine Setter Yes February 14, 2022 4:33pm Advance Directive Response Recorded Date/ Time Name of Medical Power of Supervisor Machine Setter freida roberts October 23, 2021 1:40pm Name of Medical Power of Supervisor Machine Setter FREIDA CHERI December 08, 2021 7:10pm Name of Medical Power of Supervisor Machine Setter freida cheri February 14, 2022 10:48pm Advance Directives No July 24 7:49am Living Will No February 14 10:48pm Power of Supervisor Machine Setter Yes February 14, 2022 10:48pm Advance Directive Response Recorded Date/ Time Name of Medical Power of Supervisor Machine Setter FREIDA CHERI December 08, 2021 7:10pm Name of Medical Power of Supervisor Machine Setter freida cheri February 14, 2022 10:48pm Advance Directives No July 24 7:49am Living Will No February 14 10:48pm Power of Supervisor Machine Setter Yes February 14, 2022 10:48pm Advance Directive Response Recorded Date/ Time Name of Medical Power of Supervisor Machine Setter ferida cheri February 14, 2022 11:48pm Advance Directives No July 24 8:49am Living Will No February 14 11:48pm Power of Supervisor Machine Setter Yes February 14, 2022 11:48pm Advance Directive Response Recorded Date/ Time Advance Directives No July 24 8:49am Living Will No February 14 11:48pm Power of Supervisor Machine Setter Yes February 14, 2022 11:48pm Advance Directive Response Recorded Date/ Time Advance Directives No August 08 3:27pm Living Will No August 29, 2022 4 :36pm Power of Supervisor Machine Setter No August 29, 2022 4:36pm Advance Directive Response Recorded Date/ Time Name of Medical Power of Supervisor Machine Setter November 15, 2022 3:27pm Advance Directives No August 08 3:27pm Living Will No November 15, 2022 3:27pm Power of Supervisor Machine Setter Yes October 3:27pm Advance Directive Response Recorded Date/ Time Name of Medical Power of Supervisor Machine Setter -Freida Romero November 15, 2022 8:16pm Advance Directives No August 08 3:27pm Living Will No November 15, 2022 8:16pm Power of Supervisor Machine Setter Yes October 8:16pm Advance Directive Response Recorded Date/ Time Name of Medical Power of Supervisor Machine Setter -Freida Romero November 15, 2022 7:16pm Advance Directives No August 08 2:27pm Living Will No November 15, 2022 7:16pm Power of Supervisor Machine Setter Yes October 7:16pm Advance Directive Response Recorded Date/ Time Name of Medical Power of Supervisor Machine Setter -Freida Romero November 15, 2022 7:16pm Advance Directives No August 08 2:27pm Living Will No February 28 11:16am Power of Supervisor Machine Setter No February 28 11:16am Advance Directive Response Recorded Date/ Time Name of Medical Power of Supervisor Machine Setter -Freida Romero November 15, 2022 7:16pm Advance Directives No August 08 2:27pm Living Will No February 28 5:08pm Power of Supervisor Machine Setter No February 28 5:08pm Advance Directive Response Recorded Date/ Time Name of Medical Power of Supervisor Machine Setter -Freida Romero November 15, 2022 7:16pm Name of Medical Power of Supervisor Machine Setter freida March 16, 2023 1:59pm Advance Directives No August 08 2:27pm Living Will Yes March 16 1:59pm Power of Supervisor Machine Setter Yes March 16, 2023 1:59pm Advance Directive Response Recorded Date/ Time Name of Medical Power of Supervisor Machine Setter freida March 16, 2023 1:59pm Advance Directives No August 08 2:27pm Living Will No March 16 5:33pm Power of Supervisor Machine Setter No March 16, 2023 5:33pm Advance Directive Response Recorded Date/ Time Name of Medical Power of Supervisor Machine Setter freida March 16, 2023 2:59pm Advance Directives No August 08 3:27pm Living Will No March 16 6:33pm Power of Supervisor Machine Setter No March 16, 2023 6:33pm Advance Directive Response Recorded Date/ Time Living Will No March 16 6:33pm Do you have a Healthcare Power of Supervisor Machine Setter? No March 16, 2023 6:33pm Living Will No November 14, 2023 9:10pm Do you have a Healthcare Power of Supervisor Machine Setter? No November 14, 2023 9:10pm Living Will No April 05 025 10:43pm Do you have a Healthcare Power of Supervisor Machine Setter? Yes April 05, 2024 10:43pm Name of Medical Power of Supervisor Machine Setter Ray Alonzo April 05, 2024 10:43pm Do you have a Healthcare Power of Supervisor Machine Setter? Yes June 20, 2024 8:00pm Name of Medical Power of Supervisor Machine Setter ray alonzo June 20, 2024 8:00pm Advance Directives No August 08 3:27pm Advance Directive Response Recorded Date/ Time Living Will No March 16 6:33pm Do you have a Healthcare Power of Supervisor Machine Setter? No March 16, 2023 6:33pm Living Will No February 10th, 2 025 10:43pm Do you have a Healthcare Power of Supervisor Machine Setter? Yes April 05, 2024 10:43pm Name of Medical Power of Supervisor Machine Setter Ray Alonzo April 05, 2024 10:43pm Do you have a Healthcare Power of Supervisor Machine Setter? No July 08, 2024 12:44pm Do you have a Healthcare Power of Supervisor Machine Setter? Yes June 20, 2024 8:00pm Name of Medical Power of Supervisor Machine Setter ray alonzo June 20, 2024 8:00pm Advance Directives No August 08 3:27pm Chief Complaint and Reason for Visit Chief Complaint COVID POS PHONE- + COVID ENCEPHALOPATHY, HYPOXIA, COVID 19 ENCEPHALOPATHY, HYPOXIA, COVID 19 ENCEPHALOPATHY, HYPOXIA, COVID 19 ENCEPHALOPATHY, HYPOXIA, COVID 19 COVID F/U Amb Documentation PHONE- WELLNESS CHECK EORDER ACUTE METABOLIC ENCEPHALOPATHY ACUTE METABOLIC ENCEPHALOPATHY ACUTE METABOLIC ENCEPHALOPATHY ACUTE METABOLIC ENCEPHALOPATHY ACUTE METABOLIC ENCEPHALOPATHY ACUTE METABOLIC ENCEPHALOPATHY ACUTE METABOLIC ENCEPHALOPATHY [facility] FU hyperglycemmia ftt adult ftt adult ftt adult ftt adult ftt adult ftt adult ftt adult ftt adult ftt adult FTT / PNEUMONIA / PE HYPOXIA HYPOXIA HYPOXIA HYPOXIA HYPOXIA HYPOXIA HYPOXIA HYPOXIA HYPOXIA HYPOXIA HYPOXIA HYPOXIA HYPOXIA HYPOXIA HYPOXIA HOSP. FU EORDER Reason for Visit COVID-19 Acute hypoxemic respiratory failure due to COVID-19 Encephalopathy acute FTT (failure to thrive) in adult Hypoxia COVID-19 Atherosclerosis of coronary artery of [place] without angina pectoris Hyperlipidemia Acute hypoxemic respiratory failure due to COVID-19 Acute alteration in mental status Acute respiratory failure with hypoxia Hypoxemia Pneumonia Pneumonia Asthma Atherosclerosis of coronary artery of [place] heart without angina pectoris Chronic bronchitis History of coronary artery stent placement History of diabetes mellitus, type II History of non-Hodgkin's lymphoma Hyperlipidemia Obesity FTT (failure to thrive) in adult Physical debility Pulmonary embolism Acute on chronic respiratory failure with hypoxemia History of non-Hodgkin's lymphoma Tobacco use Acute alteration in mental status Hypoxemia Ileus Acute respiratory failure with hypoxia Asthma Coronary artery disease COVID-19 Debility Diabetes mellitus Hyperglycemia Hyperlipidemia Iron deficiency anemia Pneumonia Pulmonary embolism Rhinovirus Vitamin B12 deficiency Vitamin D deficiency Chronic obstructive pulmonary disease Acute deep vein thrombosis (DVT) Anemia Acute on chronic respiratory failure with hypoxemia Dyspnea Pleural effusion Appetite loss Coronary artery disease Debility Diabetes mellitus Hyperlipidemia Iron deficiency anemia Non Hodgkin's lymphoma Vitamin B12 deficiency Vitamin D deficiency Acute and chronic respiratory failure Acute anemia Asthma COVID-19 Gastrointestinal bleeding Pneumonia Pulmonary embolism Septic shock Appetite loss Coronary artery disease COVID-19 Diabetes mellitus Hyperlipidemia Vitamin B12 deficiency Vitamin D deficiency Chronic obstructive pulmonary disease Chief Complaint COVID POS PHONE- + COVID ENCEPHALOPATHY, HYPOXIA, COVID 19 ENCEPHALOPATHY, HYPOXIA, COVID 19 ENCEPHALOPATHY, HYPOXIA, COVID 19 ENCEPHALOPATHY, HYPOXIA, COVID 19 COVID F/U Amb Documentation PHONE- WELLNESS CHECK EORDER ACUTE METABOLIC ENCEPHALOPATHY ACUTE METABOLIC ENCEPHALOPATHY ACUTE METABOLIC ENCEPHALOPATHY ACUTE METABOLIC ENCEPHALOPATHY ACUTE METABOLIC ENCEPHALOPATHY ACUTE METABOLIC ENCEPHALOPATHY ACUTE METABOLIC ENCEPHALOPATHY hospital FU hyperglycemmia ftt adult ftt adult ftt adult ftt adult ftt adult ftt adult ftt adult ftt adult ftt adult FTT / PNEUMONIA / PE HYPOXIA HYPOXIA HYPOXIA HYPOXIA HYPOXIA HYPOXIA HYPOXIA HYPOXIA HYPOXIA HYPOXIA HYPOXIA HYPOXIA HYPOXIA HYPOXIA HYPOXIA HOSP. FU EORDER Amb Documentation Reason for Visit COVID-19 Acute hypoxemic respiratory failure due to COVID-19 Encephalopathy acute FTT (failure to thrive) in adult Hypoxia COVID-19 Atherosclerosis of coronary artery of [place] heart without angina pectoris Hyperlipidemia Acute hypoxemic respiratory failure due to COVID-19 Acute alteration in mental status Acute respiratory failure with hypoxia Hypoxemia Pneumonia Pneumonia Asthma Atherosclerosis of coronary artery of [place] heart without angina pectoris Chronic bronchitis History of coronary artery stent placement History of diabetes mellitus, type II History of non-Hodgkin's lymphoma Hyperlipidemia Obesity FTT (failure to thrive) in adult Physical debility Pulmonary embolism Acute on chronic respiratory failure with hypoxemia History of non-Hodgkin's lymphoma Tobacco use Acute alteration in mental status Hypoxemia Ileus Acute respiratory failure with hypoxia Asthma Coronary artery disease COVID-19 Debility Diabetes mellitus Hyperglycemia Hyperlipidemia Iron deficiency anemia Pneumonia Pulmonary embolism Rhinovirus Vitamin B12 deficiency Vitamin D deficiency Chronic obstructive pulmonary disease Acute deep vein thrombosis (DVT) Anemia Acute on chronic respiratory failure with hypoxemia Dyspnea Pleural effusion Appetite loss Coronary artery disease Debility Diabetes mellitus Hyperlipidemia Iron deficiency anemia Non Hodgkin's lymphoma Vitamin B12 deficiency Vitamin D deficiency Acute and chronic respiratory failure Acute anemia Asthma COVID-19 Gastrointestinal bleeding Pneumonia Pulmonary embolism Septic shock Appetite loss Coronary artery disease COVID-19 Diabetes mellitus Hyperlipidemia Vitamin B12 deficiency Vitamin D deficiency Chronic obstructive pulmonary disease Chief Complaint ACUTE METABOLIC ENCE PHALOPATHY ACUTE METABOLIC ENCEPHALOPATHY ACUTE METABOLIC ENCEPHALOPATHY ACUTE METABOLIC ENCEPHALOPATHY ACUTE METABOLIC ENCEPHALOPATHY ACUTE METABOLIC ENCEPHALOPATHY ACUTE METABOLIC ENCEPHALOPATHY hospital FU hyperglycemmia ftt adult ftt adult ftt adult ftt adult ftt adult ftt adult ftt adult ftt adult ftt adult FTT / PNEUMONIA / PE HYPOXIA HYPOXIA HYPOXIA HYPOXIA HYPOXIA HYPOXIA HYPOXIA HYPOXIA HYPOXIA HYPOXIA HYPOXIA HYPOXIA HYPOXIA HYPOXIA HYPOXIA HOSP. FU EORDER Amb Documentation Acute 1 Y FU Follow up, increased tremors Reason for Visit Acute alteration in mental status Acute respiratory failure with hypoxia Hypoxemia Pneumonia Pneumonia Asthma Atherosclerosis of coronary artery of [place] heart without angina pectoris Chronic bronchitis History of coronary artery stent placement History of diabetes mellitus, type II History of non-Hodgkin's lymphoma Hyperlipidemia Obesity FTT (failure to thrive) in adult Physical debility Pulmonary embolism Acute on chronic respiratory failure with hypoxemia History of non-Hodgkin's lymphoma Tobacco use Acute alteration in mental status Hypoxemia Ileus Acute respiratory failure with hypoxia Asthma Coronary artery disease COVID-19 Debility Diabetes mellitus Hyperglycemia Hyperlipidemia Iron deficiency anemia Pneumonia Pulmonary embolism Rhinovirus Vitamin B12 deficiency Vitamin D deficiency Chronic obstructive pulmonary disease Acute deep vein thrombosis (DVT) Anemia Acute on chronic respiratory failure with hypoxemia Dyspnea Pleural effusion Appetite loss Coronary artery disease Debility Diabetes mellitus Hyperlipidemia Iron deficiency anemia Non Hodgkin's lymphoma Vitamin B12 deficiency Vitamin D deficiency Acute and chronic respiratory failure Acute anemia Asthma COVID-19 Gastrointestinal bleeding Pneumonia Pulmonary embolism Septic shock Appetite loss Coronary artery disease COVID-19 Diabetes mellitus Hyperlipidemia Vitamin B12 deficiency Vitamin D deficiency Chronic obstructive pulmonary disease Acute respiratory failure with hypoxia Asthma Acute on chronic respiratory failure with hypoxemia Chronic obstructive pulmonary disease Acute respiratory failure with hypoxia Debility Diabetes mellitus FTT (failure to thrive) in adult Hyperlipidemia Hypoalbuminemia Iron deficiency anemia Pneumonia Chronic obstructive pulmonary disease History of diabetes mellitus, type II Chief Complaint ACUTE METABOLIC ENCE PHALOPATHY ACUTE METABOLIC ENCEPHALOPATHY ACUTE METABOLIC ENCEPHALOPATHY ACUTE METABOLIC ENCEPHALOPATHY ACUTE METABOLIC ENCEPHALOPATHY ACUTE METABOLIC ENCEPHALOPATHY ACUTE METABOLIC ENCEPHALOPATHY hospital FU hyperglycemmia ftt adult ftt adult ftt adult ftt adult ftt adult ftt adult ftt adult ftt adult ftt adult FTT / PNEUMONIA / PE HYPOXIA HYPOXIA HYPOXIA HYPOXIA HYPOXIA HYPOXIA HYPOXIA HYPOXIA HYPOXIA HYPOXIA HYPOXIA HYPOXIA HYPOXIA HYPOXIA HYPOXIA HOSP. FU EORDER Amb Documentation Acute 1 Y FU Follow up, increased tremors GENERALIZED WEAKNESS Reason for Visit Acute alteration in mental status Acute respiratory failure with hypoxia Hypoxemia Pneumonia Pneumonia Asthma Atherosclerosis of coronary artery of [place] heart without angina pectoris Chronic bronchitis History of coronary artery stent placement History of diabetes mellitus, type II History of non-Hodgkin's lymphoma Hyperlipidemia Obesity FTT (failure to thrive) in adult Physical debility Pulmonary embolism Acute on chronic respiratory failure with hypoxemia History of non-Hodgkin's lymphoma Tobacco use Acute alteration in mental status Hypoxemia Ileus Acute respiratory failure with hypoxia Asthma Coronary artery disease COVID-19 Debility Diabetes mellitus Hyperglycemia Hyperlipidemia Iron deficiency anemia Pneumonia Pulmonary embolism Rhinovirus Vitamin B12 deficiency Vitamin D deficiency Chronic obstructive pulmonary disease Acute deep vein thrombosis (DVT) Anemia Acute on chronic respiratory failure with hypoxemia Dyspnea Pleural effusion Appetite loss Coronary artery disease Debility Diabetes mellitus Hyperlipidemia Iron deficiency anemia Non Hodgkin's lymphoma Vitamin B12 deficiency Vitamin D deficiency Acute and chronic respiratory failure Acute anemia Asthma COVID-19 Gastrointestinal bleeding Pneumonia Pulmonary embolism Septic shock Appetite loss Coronary artery disease COVID-19 Diabetes mellitus Hyperlipidemia Vitamin B12 deficiency Vitamin D deficiency Chronic obstructive pulmonary disease Acute respiratory failure with hypoxia Asthma Acute on chronic respiratory failure with hypoxemia Chronic obstructive pulmonary disease Acute respiratory failure with hypoxia Debility Diabetes mellitus FTT (failure to thrive) in adult Hyperlipidemia Hypoalbuminemia Iron deficiency anemia Pneumonia Chronic obstructive pulmonary disease History of diabetes mellitus, type II Generalized weakness Pneumonia Chief Complaint ACUTE METABOLIC ENCE PHALOPATHY ACUTE METABOLIC ENCEPHALOPATHY ACUTE METABOLIC ENCEPHALOPATHY ACUTE METABOLIC ENCEPHALOPATHY ACUTE METABOLIC ENCEPHALOPATHY ACUTE METABOLIC ENCEPHALOPATHY ACUTE METABOLIC ENCEPHALOPATHY hospital FU hyperglycemmia ftt adult ftt adult ftt adult ftt adult ftt adult ftt adult ftt adult ftt adult ftt adult FTT / PNEUMONIA / PE HYPOXIA HYPOXIA HYPOXIA HYPOXIA HYPOXIA HYPOXIA HYPOXIA HYPOXIA HYPOXIA HYPOXIA HYPOXIA HYPOXIA HYPOXIA HYPOXIA HYPOXIA HOSP. FU EORDER Amb Documentation Acute 1 Y FU Follow up, increased tremors GENERALIZED WEAKNESS GENERALIZED WEAKNESS Reason for Visit Acute alteration in mental status Acute respiratory failure with hypoxia Hypoxemia Pneumonia Pneumonia Asthma Atherosclerosis of coronary artery of [place] heart without angina pectoris Chronic bronchitis History of coronary artery stent placement History of diabetes mellitus, type II History of non-Hodgkin's lymphoma Hyperlipidemia Obesity FTT (failure to thrive) in adult Physical debility Pulmonary embolism Acute on chronic respiratory failure with hypoxemia History of non-Hodgkin's lymphoma Tobacco use Acute alteration in mental status Hypoxemia Ileus Acute respiratory failure with hypoxia Asthma Coronary artery disease COVID-19 Debility Diabetes mellitus Hyperglycemia Hyperlipidemia Iron deficiency anemia Pneumonia Pulmonary embolism Rhinovirus Vitamin B12 deficiency Vitamin D deficiency Chronic obstructive pulmonary disease Acute deep vein thrombosis (DVT) Anemia Acute on chronic respiratory failure with hypoxemia Dyspnea Pleural effusion Appetite loss Coronary artery disease Debility Diabetes mellitus Hyperlipidemia Iron deficiency anemia Non Hodgkin's lymphoma Vitamin B12 deficiency Vitamin D deficiency Acute and chronic respiratory failure Acute anemia Asthma COVID-19 Gastrointestinal bleeding Pneumonia Pulmonary embolism Septic shock Appetite loss Coronary artery disease COVID-19 Diabetes mellitus Hyperlipidemia Vitamin B12 deficiency Vitamin D deficiency Chronic obstructive pulmonary disease Acute respiratory failure with hypoxia Asthma Acute on chronic respiratory failure with hypoxemia Chronic obstructive pulmonary disease Acute respiratory failure with hypoxia Debility Diabetes mellitus FTT (failure to thrive) in adult Hyperlipidemia Hypoalbuminemia Iron deficiency anemia Pneumonia Chronic obstructive pulmonary disease History of diabetes mellitus, type II Generalized weakness Pneumonia Chief Complaint HYPOXIA HOSP. FU EORDER Amb Documentation Acute 1 Y FU Follow up, increased tremors GENERALIZED WEAKNESS GENERALIZED WEAKNESS FILTER REMOVAL SWELLING IN LEGS Reason for Visit Appetite loss Coronary artery disease Debility Diabetes mellitus Hyperlipidemia Iron deficiency anemia Non Hodgkin's lymphoma Vitamin B12 deficiency Vitamin D deficiency Acute and chronic respiratory failure Acute anemia Asthma COVID-19 Gastrointestinal bleeding Pneumonia Pulmonary embolism Septic shock Appetite loss Coronary artery disease COVID-19 Diabetes mellitus Hyperlipidemia Vitamin B12 deficiency Vitamin D deficiency Chronic obstructive pulmonary disease Acute respiratory failure with hypoxia Asthma Acute on chronic respiratory failure with hypoxemia Chronic obstructive pulmonary disease Acute respiratory failure with hypoxia Debility Diabetes mellitus FTT (failure to thrive) in adult Hyperlipidemia Hypoalbuminemia Iron deficiency anemia Pneumonia Chronic obstructive pulmonary disease History of diabetes mellitus, type II Generalized weakness Pneumonia Acute deep vein thrombosis (DVT) Iron deficiency anemia Pulmonary embolism Swelling of lower extremity Chief Complaint Amb Documentation Acute 1 Y FU Follow up, increased tremors GENERALIZED WEAKNESS GENERALIZED WEAKNESS FILTER REMOVAL SWELLING IN LEGS HYPOXIA, PNA Reason for Visit Acute on chronic res piratory failure with hypoxemia Chronic obstructive pulmonary disease Chronic obstructive pulmonary disease Hyperlipidemia Generalized weakness Pneumonia Iron deficiency anemia Swelling of lower extremity Hypoxia Leukocytosis Pneumonia Chief Complaint Amb Documentation Acute 1 Y FU Follow up, increased tremors GENERALIZED WEAKNESS GENERALIZED WEAKNESS FILTER REMOVAL SWELLING IN LEGS HYPOXIA, PNA HYPOXIA, PNA Reason for Visit Acute on chronic res piratory failure with hypoxemia Chronic obstructive pulmonary disease Chronic obstructive pulmonary disease Hyperlipidemia Generalized weakness Pneumonia Iron deficiency anemia Swelling of lower extremity Hypoxia Leukocytosis Pneumonia Chief Complaint 1 Y FU Follow up, increased tremors GENERALIZED WEAKNESS GENERALIZED WEAKNESS FILTER REMOVAL SWELLING IN LEGS HYPOXIA, PNA HYPOXIA, PNA 1 Y FU NEW-JO ANN Acute EXACERBATION OF COPD EXACERBATION OF COPD EXACERBATION OF COPD EXACERBATION OF COPD EXACERBATION OF COPD Reason for Visit Acute on chronic res piratory failure with hypoxemia Chronic obstructive pulmonary disease Chronic obstructive pulmonary disease Hyperlipidemia Generalized weakness Pneumonia Iron deficiency anemia Swelling of lower extremity Pneumonia Hypoxia Leukocytosis Atherosclerosis of coronary artery of [place] heart without angina pectoris Essential hypertension Hyperlipidemia Iron deficiency anemia Iron deficiency anemia 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 Acute on chronic respiratory failure with hypoxemia Chronic obstructive pulmonary disease COPD exacerbation Essential hypertension Iron deficiency anemia 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 Type 2 diabetes mellitus Chief Complaint FILTER REMOVAL SWELLING IN LEGS HYPOXIA, PNA HYPOXIA, PNA 1 Y FU NEW-JO ANN Acute EXACERBATION OF COPD EXACERBATION OF COPD EXACERBATION OF COPD EXACERBATION OF COPD EXACERBATION OF COPD EXACERBATION OF COPD COPD EXAC, PNA Reason for Visit Iron deficiency anem ia Swelling of lower extremity Pneumonia Hypoxia Leukocytosis Atherosclerosis of coronary artery of [place] heart without angina pectoris Essential hypertension Hyperlipidemia Iron deficiency anemia Iron deficiency anemia 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 Acute on chronic respiratory failure with hypoxemia Chronic obstructive pulmonary disease COPD exacerbation Essential hypertension Iron deficiency anemia 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 Type 2 diabetes mellitus Acute dyspnea Exertional dyspnea Leukocytosis Pneumonia COPD exacerbation Chief Complaint FILTER REMOVAL SWELLING IN LEGS HYPOXIA, PNA HYPOXIA, PNA 1 Y FU NEW-JO ANN Acute EXACERBATION OF COPD EXACERBATION OF COPD EXACERBATION OF COPD EXACERBATION OF COPD EXACERBATION OF COPD EXACERBATION OF COPD COPD EXAC, PNA COPD EXAC, PNA COPD EXAC, PNA COPD EXAC, PNA COPD EXAC, PNA COPD EXAC, PNA Reason for Visit Iron deficiency anem ia Swelling of lower extremity Pneumonia Hypoxia Leukocytosis Atherosclerosis of coronary artery of [place] heart without angina pectoris Essential hypertension Hyperlipidemia Iron deficiency anemia Iron deficiency anemia 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 Acute on chronic respiratory failure with hypoxemia Chronic obstructive pulmonary disease COPD exacerbation Essential hypertension Iron deficiency anemia 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 Type 2 diabetes mellitus Acute dyspnea Exertional dyspnea Leukocytosis Pneumonia COPD exacerbation Iron deficiency anemia Chief Complaint FILTER REMOVAL SWELLING IN LEGS HYPOXIA, PNA HYPOXIA, PNA 1 Y FU NEW-JO ANN Acute EXACERBATION OF COPD EXACERBATION OF COPD EXACERBATION OF COPD EXACERBATION OF COPD EXACERBATION OF COPD EXACERBATION OF COPD COPD EXAC, PNA COPD EXAC, PNA COPD EXAC, PNA COPD EXAC, PNA COPD EXAC, PNA COPD EXAC, PNA H FU ALSO ORDERS FROM DR ZAPATA [facility] Reason for Visit Iron deficiency anem ia Swelling of lower extremity Hypoxia Leukocytosis Pneumonia Atherosclerosis of coronary artery of [place] heart without angina pectoris Essential hypertension Hyperlipidemia Iron deficiency anemia Iron deficiency anemia 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 Acute on chronic respiratory failure with hypoxemia Chronic obstructive pulmonary disease COPD exacerbation Essential hypertension Iron deficiency anemia 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 Type 2 diabetes mellitus Iron deficiency anemia Acute dyspnea COPD exacerbation Exertional dyspnea Leukocytosis Pneumonia Iron deficiency anemia Iron deficiency anemia 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 Chief Complaint HYPOXIA, PNA HYPOXIA, PNA 1 Y FU NEW-JO ANN Acute EXACERBATION OF COPD EXACERBATION OF COPD EXACERBATION OF COPD EXACERBATION OF COPD EXACERBATION OF COPD EXACERBATION OF COPD COPD EXAC, PNA COPD EXAC, PNA COPD EXAC, PNA COPD EXAC, PNA COPD EXAC, PNA COPD EXAC, PNA H FU ALSO ORDERS FROM DR ZAPATA [facility] MED ONC [id number] Reason for Visit Hypoxia Leukocytosis Pneumonia Atherosclerosis of coronary artery of [place] heart without angina pectoris Essential hypertension Hyperlipidemia Iron deficiency anemia Iron deficiency anemia 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 Acute on chronic respiratory failure with hypoxemia Chronic obstructive pulmonary disease COPD exacerbation Essential hypertension Iron deficiency anemia 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 Type 2 diabetes mellitus Iron deficiency anemia Acute dyspnea COPD exacerbation Exertional dyspnea Leukocytosis Pneumonia Iron deficiency anemia Iron deficiency anemia 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 Chief Complaint Acute EXACERBATION OF COPD EXACERBATION OF COPD EXACERBATION OF COPD EXACERBATION OF COPD EXACERBATION OF COPD EXACERBATION OF COPD COPD EXAC, PNA COPD EXAC, PNA COPD EXAC, PNA COPD EXAC, PNA COPD EXAC, PNA COPD EXAC, PNA H FU ALSO ORDERS FROM DR ZAPATA [facility] [id number] [facility] BILATERAL PNEUMONIA Reason for Visit Acute on chronic res piratory failure with hypoxemia Chronic obstructive pulmonary disease COPD exacerbation Essential hypertension Iron deficiency anemia 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 Type 2 diabetes mellitus Iron deficiency anemia Acute dyspnea COPD exacerbation Exertional dyspnea Leukocytosis Pneumonia Iron deficiency anemia Iron deficiency anemia 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 Iron deficiency anemia 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 Acute encephalopathy Bilateral pneumonia Debility Hypoxemia Chief Complaint Acute EXACERBATION OF COPD EXACERBATION OF COPD EXACERBATION OF COPD EXACERBATION OF COPD EXACERBATION OF COPD EXACERBATION OF COPD COPD EXAC, PNA COPD EXAC, PNA COPD EXAC, PNA COPD EXAC, PNA COPD EXAC, PNA COPD EXAC, PNA H FU ALSO ORDERS FROM DR ZAPATA [facility] [id number] [facility] BILATERAL PNEUMONIA BILATERAL PNEUMONIA BILATERAL PNEUMONIA BILATERAL PNEUMONIA BILATERAL PNEUMONIA BILATERAL PNEUMONIA Reason for Visit Acute on chronic res piratory failure with hypoxemia Chronic obstructive pulmonary disease COPD exacerbation Essential hypertension Iron deficiency anemia 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 Type 2 diabetes mellitus Iron deficiency anemia Acute dyspnea COPD exacerbation Exertional dyspnea Leukocytosis Pneumonia Iron deficiency anemia Iron deficiency anemia 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 Iron deficiency anemia 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 Acute encephalopathy Bilateral pneumonia Debility Hypoxemia Acute on chronic respiratory failure with hypoxemia Chronic obstructive pulmonary disease Chief Complaint COPD EXAC, PNA COPD EXAC, PNA COPD EXAC, PNA COPD EXAC, PNA COPD EXAC, PNA COPD EXAC, PNA H FU ALSO ORDERS FROM DR ZAPATA [facility] [id number] [facility] MED [facility] BILATERAL PNEUMONIA BILATERAL PNEUMONIA BILATERAL PNEUMONIA BILATERAL PNEUMONIA BILATERAL PNEUMONIA BILATERAL PNEUMONIA 4 M FU Anemia, unspecified Reason for Visit Iron deficiency anem ia Acute dyspnea COPD exacerbation Exertional dyspnea Leukocytosis Pneumonia Iron deficiency anemia Iron deficiency anemia 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 Iron deficiency anemia 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 Chronic obstructive pulmonary disease Acute encephalopathy Acute on chronic respiratory failure with hypoxemia Bilateral pneumonia Debility Hypoxemia History of airway aspiration Nicotine dependence, cigarettes, in remission Chronic hypoxemic respiratory failure COPD (chronic obstructive pulmonary disease) Chief Complaint COPD EXAC, PNA COPD EXAC, PNA COPD EXAC, PNA COPD EXAC, PNA COPD EXAC, PNA COPD EXAC, PNA H FU ALSO ORDERS FROM DR ZAPATA [facility] end[facility] [id number] [facility] MED [facility] BILATERAL PNEUMONIA BILATERAL PNEUMONIA BILATERAL PNEUMONIA BILATERAL PNEUMONIA BILATERAL PNEUMONIA BILATERAL PNEUMONIA 4 M FU Anemia, unspecified DYSPHAGIA Reason for Visit Iron deficiency anem ia Acute dyspnea COPD exacerbation Exertional dyspnea Leukocytosis Pneumonia Iron deficiency anemia Iron deficiency anemia 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 Iron deficiency anemia 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 Chronic obstructive pulmonary disease Acute encephalopathy Acute on chronic respiratory failure with hypoxemia Bilateral pneumonia Debility Hypoxemia History of airway aspiration Nicotine dependence, cigarettes, in remission Chronic hypoxemic respiratory failure COPD (chronic obstructive pulmonary disease) Chief Complaint [facility] BILATERAL PNEUMONIA BILATERAL PNEUMONIA BILATERAL PNEUMONIA BILATERAL PNEUMONIA BILATERAL PNEUMONIA BILATERAL PNEUMONIA 4 M FU Anemia, unspecified DYSPHAGIA [facility] COPD Injectafer COPD COPD COPD Reason for Visit Iron deficiency anem ia 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 Chronic obstructive pulmonary disease Acute encephalopathy Acute on chronic respiratory failure with hypoxemia Bilateral pneumonia Debility Hypoxemia History of airway aspiration Nicotine dependence, cigarettes, in remission Chronic hypoxemic respiratory failure COPD (chronic obstructive pulmonary disease) Hematuria Iron deficiency anemia 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 Chief Complaint BILATERAL PNEUMONIA BILATERAL PNEUMONIA BILATERAL PNEUMONIA BILATERAL PNEUMONIA BILATERAL PNEUMONIA BILATERAL PNEUMONIA 4 M FU Anemia, unspecified DYSPHAGIA [facility] COPD Injectafer COPD COPD COPD 3 M FU DYSPHAGIA Reason for Visit Chronic obstructive pulmonary disease Acute encephalopathy Acute on chronic respiratory failure with hypoxemia Bilateral pneumonia Debility Hypoxemia History of airway aspiration Nicotine dependence, cigarettes, in remission Chronic hypoxemic respiratory failure COPD (chronic obstructive pulmonary disease) Hematuria Iron deficiency anemia 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 Chronic hypoxemic respiratory failure COPD (chronic obstructive pulmonary disease) Tobacco abuse Chief Complaint 4 M FU Anemia, unspecified DYSPHAGIA [facility] COPD Injectafer COPD COPD COPD 3 M FU DYSPHAGIA 3 MO FU E ORDER NEED ORDER DR BEARDEN Reason for Visit History of airway as piration Nicotine dependence, cigarettes, in remission Chronic hypoxemic respiratory failure COPD (chronic obstructive pulmonary disease) Hematuria Iron deficiency anemia 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 Chronic hypoxemic respiratory failure COPD (chronic obstructive pulmonary disease) Tobacco abuse GI bleed Iron deficiency anemia Chief Complaint COPD COPD COPD COPD 3 M FU DYSPHAGIA 3 MO FU E ORDER NEED ORDER DR BEARDEN HEMATURIA *CC: RESULTS TO DR. ZAPATA* [facility] REVIEW CT/GET SULEIMAN NOTES Injectafer [facility](NEED FOB BACK) POSITIVE FOBT Annual CAP ENDO E-ORDER WEAKNESS Reason for Visit Chronic hypoxemic re spiratory failure COPD (chronic obstructive pulmonary disease) Tobacco abuse GI bleed Iron deficiency anemia Iron deficiency anemia 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 Iron deficiency anemia 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 GI bleed Iron deficiency anemia Nicotine dependence, cigarettes, in remission Atherosclerosis of coronary artery of [place] heart without angina pectoris Chronic hypoxemic respiratory failure COPD (chronic obstructive pulmonary disease) Essential hypertension GI bleed Iron deficiency anemia Obesity Type 2 diabetes mellitus Chief Complaint [facility] REVIEW CT /GET SULEIMAN NOTES [facility](NEED FOB BACK) POSITIVE FOBT Annual CAP ENDO E-ORDER WEAKNESS 4[facility] 9 m fu R/S from 07/25 D/T Illness [facility] 4[facility] 2 UNITS PRBC ACUTE ON CHRONIC RESPITORY FAILURE Reason for Visit Iron deficiency anem ia 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 Iron deficiency anemia 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 GI bleed Iron deficiency anemia Nicotine dependence, cigarettes, in remission Atherosclerosis of coronary artery of [place] heart without angina pectoris Chronic hypoxemic respiratory failure COPD (chronic obstructive pulmonary disease) Essential hypertension GI bleed Iron deficiency anemia Obesity Type 2 diabetes mellitus Anemia Iron deficiency anemia 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 Atherosclerosis of coronary artery of [place] heart without angina pectoris Essential hypertension Hyperlipidemia Iron deficiency anemia Anemia Iron deficiency anemia 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 Anemia Iron deficiency anemia 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 Bilateral pleural effusion Chronic iron deficiency anemia Heart failure Hypoxia Acute and chronic respiratory failure with hypoxia Chronic kidney disease (CKD), stage III (moderate) Essential hypertension Hyperlipidemia Type 2 diabetes mellitus Chief Complaint 12[facility] REVIEW CT /GET SULEIMAN NOTES 2[facility](NEED FOB BACK) POSITIVE FOBT Annual CAP ENDO E-ORDER WEAKNESS 4[facility] 9 m fu R/S from 07/25 D/T Illness 4[facility]S 4[facility]S 2 UNITS PRBC ACUTE ON CHRONIC RESPITORY FAILURE ACUTE ON CHRONIC HYPOXIC RESPIRATORY FAILURE ACUTE ON CHRONIC HYPOXIC RESPIRATORY FAILURE ACUTE ON CHRONIC HYPOXIC RESPIRATORY FAILURE Reason for Visit Iron deficiency anem ia 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 Iron deficiency anemia 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 GI bleed Iron deficiency anemia Nicotine dependence, cigarettes, in remission Atherosclerosis of coronary artery of [place] heart without angina pectoris Chronic hypoxemic respiratory failure COPD (chronic obstructive pulmonary disease) Essential hypertension GI bleed Iron deficiency anemia Obesity Type 2 diabetes mellitus Anemia Iron deficiency anemia 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 Atherosclerosis of coronary artery of [place] heart without angina pectoris Essential hypertension Hyperlipidemia Iron deficiency anemia Anemia Iron deficiency anemia 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 Anemia Iron deficiency anemia 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 Bilateral pleural effusion Chronic iron deficiency anemia Heart failure Hypoxia Acute and chronic respiratory failure with hypoxia Chronic kidney disease (CKD), stage III (moderate) Essential hypertension Hyperlipidemia Type 2 diabetes mellitus Chief Complaint 4[facility] ACUTE ON CHRONIC RESPITORY FAILURE ACUTE ON CHRONIC HYPOXIC RESPIRATORY FAILURE ACUTE ON CHRONIC HYPOXIC RESPIRATORY FAILURE ACUTE ON CHRONIC HYPOXIC RESPIRATORY FAILURE 2 M FU 4[facility] 8WKS LABS SMOKING >40 PK YRS, QUIT 02/2021 6 M FU 2 UNITS PRBC Reason for Visit Anemia Iron deficiency anemia 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 Bilateral pleural effusion Chronic iron deficiency anemia Heart failure Chronic kidney disease (CKD), stage III (moderate) Essential hypertension Hyperlipidemia Type 2 diabetes mellitus Acute and chronic respiratory failure with hypoxia Hypoxia Bilateral pleural effusion Chronic iron deficiency anemia Heart failure Atherosclerosis of coronary artery of [place] heart without angina pectoris Chronic kidney disease (CKD), stage III (moderate) Chronic obstructive pulmonary disease Type 2 diabetes mellitus Acute and chronic respiratory failure with hypoxia Hypoxia Anemia Iron deficiency anemia 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 Anemia Iron deficiency anemia 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 Chronic hypoxemic respiratory failure COPD (chronic obstructive pulmonary disease) Nicotine dependence, cigarettes, in remission Chief Complaint ACUTE ON CHRONIC RES PITORY FAILURE ACUTE ON CHRONIC HYPOXIC RESPIRATORY FAILURE ACUTE ON CHRONIC HYPOXIC RESPIRATORY FAILURE ACUTE ON CHRONIC HYPOXIC RESPIRATORY FAILURE 2 M FU 4WKS LABS 8WKS LABS SMOKING >40 PK YRS, QUIT 02/2021 6 M FU 2 UNITS PRBC COPD, ANEMIA, CKD, RT. PLEURAL EFFUSION Reason for Visit Bilateral pleural ef fusion Chronic iron deficiency anemia Heart failure Chronic kidney disease (CKD), stage III (moderate) Essential hypertension Hyperlipidemia Type 2 diabetes mellitus Acute and chronic respiratory failure with hypoxia Hypoxia Bilateral pleural effusion Chronic iron deficiency anemia Heart failure Atherosclerosis of coronary artery of [place] heart without angina pectoris Chronic kidney disease (CKD), stage III (moderate) Chronic obstructive pulmonary disease Type 2 diabetes mellitus Acute and chronic respiratory failure with hypoxia Hypoxia Anemia Iron deficiency anemia 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 Anemia Iron deficiency anemia 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 Chronic hypoxemic respiratory failure COPD (chronic obstructive pulmonary disease) Nicotine dependence, cigarettes, in remission Acute dyspnea Acute hyperkalemia Anemia Pleural effusion on right History of chronic kidney disease History of COPD Chief Complaint ACUTE ON CHRONIC RES PITORY FAILURE ACUTE ON CHRONIC HYPOXIC RESPIRATORY FAILURE ACUTE ON CHRONIC HYPOXIC RESPIRATORY FAILURE ACUTE ON CHRONIC HYPOXIC RESPIRATORY FAILURE 2 M FU 4WKS LABS 8WKS LABS SMOKING >40 PK YRS, QUIT 02/2021 6 M FU 2 UNITS PRBC COPD, ANEMIA, CKD, RT. PLEURAL EFFUSION COPD, ANEMIA, CKD, RT. PLEURAL EFFUSION COPD, ANEMIA, CKD, RT. PLEURAL EFFUSION COPD, ANEMIA, CKD, RT. PLEURAL EFFUSION ANEMIA / HYPOXIA ANEMIA / HYPOXIA ANEMIA / HYPOXIA ANEMIA / HYPOXIA Reason for Visit Bilateral pleural ef fusion Chronic iron deficiency anemia Heart failure Chronic kidney disease (CKD), stage III (moderate) Essential hypertension Hyperlipidemia Type 2 diabetes mellitus Acute and chronic respiratory failure with hypoxia Hypoxia Bilateral pleural effusion Chronic iron deficiency anemia Heart failure Atherosclerosis of coronary artery of [place] heart without angina pectoris Chronic kidney disease (CKD), stage III (moderate) Chronic obstructive pulmonary disease Type 2 diabetes mellitus Acute and chronic respiratory failure with hypoxia Hypoxia Anemia Iron deficiency anemia 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 Anemia Iron deficiency anemia 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 Chronic hypoxemic respiratory failure COPD (chronic obstructive pulmonary disease) Nicotine dependence, cigarettes, in remission Acute dyspnea Acute hyperkalemia Anemia Heart failure Pleural effusion on right COPD exacerbation History of chronic kidney disease History of COPD History of coronary artery stent placement Type 2 diabetes mellitus History of pulmonary embolus (PE) Chief Complaint ACUTE ON CHRONIC HYP OXIC RESPIRATORY FAILURE ACUTE ON CHRONIC HYPOXIC RESPIRATORY FAILURE ACUTE ON CHRONIC HYPOXIC RESPIRATORY FAILURE 2 M FU 4WKS LABS 8WKS LABS SMOKING >40 PK YRS, QUIT 02/2021 6 M FU 2 UNITS PRBC COPD, ANEMIA, CKD, RT. PLEURAL EFFUSION COPD, ANEMIA, CKD, RT. PLEURAL EFFUSION COPD, ANEMIA, CKD, RT. PLEURAL EFFUSION COPD, ANEMIA, CKD, RT. PLEURAL EFFUSION ANEMIA / HYPOXIA ANEMIA / HYPOXIA ANEMIA / HYPOXIA TACHY Atrial fibrillation ANEMIA / HYPOXIA SEVERE ACUTE ON CHRONIC ANEMIA/GI BLEED Reason for Visit Bilateral pleural ef fusion Chronic iron deficiency anemia Heart failure Chronic kidney disease (CKD), stage III (moderate) Essential hypertension Hyperlipidemia Type 2 diabetes mellitus Acute and chronic respiratory failure with hypoxia Hypoxia Bilateral pleural effusion Chronic iron deficiency anemia Heart failure Atherosclerosis of coronary artery of [place] without angina pectoris Chronic kidney disease (CKD), stage III (moderate) Chronic obstructive pulmonary disease Type 2 diabetes mellitus Acute and chronic respiratory failure with hypoxia Hypoxia Anemia Iron deficiency anemia 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 Anemia Iron deficiency anemia 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 Chronic hypoxemic respiratory failure COPD (chronic obstructive pulmonary disease) Nicotine dependence, cigarettes, in remission Acute dyspnea Heart failure Pleural effusion on right COPD exacerbation History of chronic kidney disease History of COPD History of coronary artery stent placement Type 2 diabetes mellitus Acute hyperkalemia Anemia History of pulmonary embolus (PE) Acute anemia Acute lactic acidosis LUIS (acute kidney injury) Elevated troponin I level Fall Fatigue Hemorrhagic shock Hyperglycemia Hypotension Leukocytosis Pleural effusion on right Chief Complaint 8WKS LABS SMOKING >40 PK YRS, QUIT 02/2021 6 M FU 2 UNITS PRBC COPD, ANEMIA, CKD, RT. PLEURAL EFFUSION COPD, ANEMIA, CKD, RT. PLEURAL EFFUSION COPD, ANEMIA, CKD, RT. PLEURAL EFFUSION COPD, ANEMIA, CKD, RT. PLEURAL EFFUSION ANEMIA / HYPOXIA ANEMIA / HYPOXIA ANEMIA / HYPOXIA TACHY Atrial fibrillation ANEMIA / HYPOXIA SEVERE ACUTE ON CHRONIC ANEMIA/GI BLEED SEVERE ACUTE ON CHRONIC ANEMIA/GI BLEED SEVERE ACUTE ON CHRONIC ANEMIA/GI BLEED SEVERE ACUTE ON CHRONIC ANEMIA/GI BLEED SEVERE ACUTE ON CHRONIC ANEMIA/GI BLEED SEVERE ACUTE ON CHRONIC ANEMIA/GI BLEED SEVERE ACUTE ON CHRONIC ANEMIA/GI BLEED SEVERE ACUTE ON CHRONIC ANEMIA/GI BLEED SEVERE ACUTE ON CHRONIC ANEMIA/GI BLEED SEVERE ACUTE ON CHRONIC ANEMIA/GI BLEED SEVERE ACUTE ON CHRONIC ANEMIA/GI BLEED SEVERE ACUTE ON CHRONIC ANEMIA/GI BLEED SEVERE ACUTE ON CHRONIC ANEMIA/GI BLEED [facility] Discharge FU Reason for Visit Anemia Iron deficiency anemia 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 Chronic hypoxemic respiratory failure COPD (chronic obstructive pulmonary disease) Nicotine dependence, cigarettes, in remission Acute dyspnea Heart failure Pleural effusion on right COPD exacerbation History of chronic kidney disease History of COPD History of coronary artery stent placement Type 2 diabetes mellitus Acute hyperkalemia Anemia History of pulmonary embolus (PE) Acute anemia Acute hyperglycemia Acute lactic acidosis LUIS (acute kidney injury) Elevated troponin I level Fall Fatigue Hemorrhagic shock Hyperglycemia Hypotension Leukocytosis Pleural effusion on right Syncope Acute on chronic blood loss anemia Acute kidney injury superimposed on CKD Acute upper GI bleed Chronic iron deficiency anemia Hemorrhagic shock Chronic kidney disease (CKD), stage III (moderate) COPD (chronic obstructive pulmonary disease) History of COPD Type 2 diabetes mellitus Acute kidney injury superimposed on CKD Acute upper GI bleed Chief Complaint 8WKS LABS SMOKING >40 PK YRS, QUIT 02/2021 6 M FU 2 UNITS PRBC COPD, ANEMIA, CKD, RT. PLEURAL EFFUSION COPD, ANEMIA, CKD, RT. PLEURAL EFFUSION COPD, ANEMIA, CKD, RT. PLEURAL EFFUSION COPD, ANEMIA, CKD, RT. PLEURAL EFFUSION ANEMIA / HYPOXIA ANEMIA / HYPOXIA ANEMIA / HYPOXIA TACHY Atrial fibrillation ANEMIA / HYPOXIA SEVERE ACUTE ON CHRONIC ANEMIA/GI BLEED SEVERE ACUTE ON CHRONIC ANEMIA/GI BLEED SEVERE ACUTE ON CHRONIC ANEMIA/GI BLEED SEVERE ACUTE ON CHRONIC ANEMIA/GI BLEED SEVERE ACUTE ON CHRONIC ANEMIA/GI BLEED SEVERE ACUTE ON CHRONIC ANEMIA/GI BLEED SEVERE ACUTE ON CHRONIC ANEMIA/GI BLEED SEVERE ACUTE ON CHRONIC ANEMIA/GI BLEED SEVERE ACUTE ON CHRONIC ANEMIA/GI BLEED SEVERE ACUTE ON CHRONIC ANEMIA/GI BLEED SEVERE ACUTE ON CHRONIC ANEMIA/GI BLEED SEVERE ACUTE ON CHRONIC ANEMIA/GI BLEED SEVERE ACUTE ON CHRONIC ANEMIA/GI BLEED [facility] Discharge FU [employer] LABWORK Reason for Visit Anemia Iron deficiency anemia 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 Chronic hypoxemic respiratory failure COPD (chronic obstructive pulmonary disease) Nicotine dependence, cigarettes, in remission Acute dyspnea Heart failure Pleural effusion on right COPD exacerbation History of chronic kidney disease History of COPD History of coronary artery stent placement Type 2 diabetes mellitus Acute hyperkalemia Anemia History of pulmonary embolus (PE) Acute anemia Acute hyperglycemia Acute lactic acidosis LUIS (acute kidney injury) Elevated troponin I level Fall Fatigue Hemorrhagic shock Hyperglycemia Hypotension Leukocytosis Pleural effusion on right Syncope Acute on chronic blood loss anemia Acute kidney injury superimposed on CKD Acute upper GI bleed Chronic iron deficiency anemia Hemorrhagic shock Chronic kidney disease (CKD), stage III (moderate) COPD (chronic obstructive pulmonary disease) History of COPD Type 2 diabetes mellitus Acute kidney injury superimposed on CKD Acute upper GI bleed Chief Complaint 8WKS LABS SMOKING >40 PK YRS, QUIT 02/2021 6 M FU COPD, ANEMIA, CKD, RT. PLEURAL EFFUSION COPD, ANEMIA, CKD, RT. PLEURAL EFFUSION COPD, ANEMIA, CKD, RT. PLEURAL EFFUSION COPD, ANEMIA, CKD, RT. PLEURAL EFFUSION ANEMIA / HYPOXIA ANEMIA / HYPOXIA ANEMIA / HYPOXIA TACHY Atrial fibrillation ANEMIA / HYPOXIA SEVERE ACUTE ON CHRONIC ANEMIA/GI BLEED SEVERE ACUTE ON CHRONIC ANEMIA/GI BLEED SEVERE ACUTE ON CHRONIC ANEMIA/GI BLEED SEVERE ACUTE ON CHRONIC ANEMIA/GI BLEED SEVERE ACUTE ON CHRONIC ANEMIA/GI BLEED SEVERE ACUTE ON CHRONIC ANEMIA/GI BLEED SEVERE ACUTE ON CHRONIC ANEMIA/GI BLEED SEVERE ACUTE ON CHRONIC ANEMIA/GI BLEED SEVERE ACUTE ON CHRONIC ANEMIA/GI BLEED SEVERE ACUTE ON CHRONIC ANEMIA/GI BLEED SEVERE ACUTE ON CHRONIC ANEMIA/GI BLEED SEVERE ACUTE ON CHRONIC ANEMIA/GI BLEED SEVERE ACUTE ON CHRONIC ANEMIA/GI BLEED [facility] Discharge FU [employer] [facility] LABWORK 1 M FU 2 UNITS PRBC r/s from 05/01, CHF/pneumonia Reason for Visit Anemia Iron deficiency anemia 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 Chronic hypoxemic respiratory failure COPD (chronic obstructive pulmonary disease) Nicotine dependence, cigarettes, in remission Acute dyspnea Heart failure Pleural effusion on right COPD exacerbation History of chronic kidney disease History of COPD History of coronary artery stent placement Type 2 diabetes mellitus Acute hyperkalemia Anemia History of pulmonary embolus (PE) Acute anemia Acute hyperglycemia Acute lactic acidosis LUIS (acute kidney injury) Elevated troponin I level Fall Fatigue Hemorrhagic shock Hyperglycemia Hypotension Leukocytosis Pleural effusion on right Syncope Acute on chronic blood loss anemia Acute kidney injury superimposed on CKD Acute upper GI bleed Chronic iron deficiency anemia Hemorrhagic shock Chronic kidney disease (CKD), stage III (moderate) COPD (chronic obstructive pulmonary disease) History of COPD Type 2 diabetes mellitus Acute kidney injury superimposed on CKD Acute upper GI bleed Fall Acute on chronic blood loss anemia Anemia Chronic kidney disease (CKD), stage III (moderate) Essential hypertension History of coronary artery stent placement Type 2 diabetes mellitus HFrEF (heart failure with reduced ejection fraction) Atherosclerosis of coronary artery of [place] heart without angina pectoris Essential hypertension History of coronary artery stent placement Hyperlipidemia Iron deficiency anemia Chief Complaint COPD, ANEMIA, CKD, R T. PLEURAL EFFUSION COPD, ANEMIA, CKD, RT. PLEURAL EFFUSION COPD, ANEMIA, CKD, RT. PLEURAL EFFUSION COPD, ANEMIA, CKD, RT. PLEURAL EFFUSION ANEMIA / HYPOXIA ANEMIA / HYPOXIA ANEMIA / HYPOXIA TACHY Atrial fibrillation ANEMIA / HYPOXIA SEVERE ACUTE ON CHRONIC ANEMIA/GI BLEED SEVERE ACUTE ON CHRONIC ANEMIA/GI BLEED SEVERE ACUTE ON CHRONIC ANEMIA/GI BLEED SEVERE ACUTE ON CHRONIC ANEMIA/GI BLEED SEVERE ACUTE ON CHRONIC ANEMIA/GI BLEED SEVERE ACUTE ON CHRONIC ANEMIA/GI BLEED SEVERE ACUTE ON CHRONIC ANEMIA/GI BLEED SEVERE ACUTE ON CHRONIC ANEMIA/GI BLEED SEVERE ACUTE ON CHRONIC ANEMIA/GI BLEED SEVERE ACUTE ON CHRONIC ANEMIA/GI BLEED SEVERE ACUTE ON CHRONIC ANEMIA/GI BLEED SEVERE ACUTE ON CHRONIC ANEMIA/GI BLEED SEVERE ACUTE ON CHRONIC ANEMIA/GI BLEED [facility] Discharge FU [facility] LABWORK 1 M FU r/s from 05/01, CHF/pneumonia OVERDUE FOR F/U - LABS 2 UNITS PRBC ANEMIA - BONE MARROW ANEMIA - BONE MARROW Amb Documentation Reason for Visit Acute dyspnea Heart failure Pleural effusion on right COPD exacerbation History of chronic kidney disease History of COPD History of coronary artery stent placement Type 2 diabetes mellitus Acute hyperkalemia Anemia History of pulmonary embolus (PE) Acute anemia Acute hyperglycemia Acute lactic acidosis LUIS (acute kidney injury) Elevated troponin I level Fall Fatigue Hemorrhagic shock Hyperglycemia Hypotension Leukocytosis Pleural effusion on right Syncope Acute on chronic blood loss anemia Acute kidney injury superimposed on CKD Acute upper GI bleed Chronic iron deficiency anemia Hemorrhagic shock Chronic kidney disease (CKD), stage III (moderate) COPD (chronic obstructive pulmonary disease) History of COPD Type 2 diabetes mellitus Acute kidney injury superimposed on CKD Acute upper GI bleed Fall Acute on chronic blood loss anemia Anemia Chronic kidney disease (CKD), stage III (moderate) Essential hypertension History of coronary artery stent placement Type 2 diabetes mellitus HFrEF (heart failure with reduced ejection fraction) Essential hypertension History of coronary artery stent placement Hyperlipidemia Iron deficiency anemia 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 Chief Complaint Admit Date 3 M March 03, 2024 9: 52am 5 [facility] [place] March 05, 2024 1 2:53pm 6 M March 16, 2024 1 1:35am PNEUMONIA, AE COPD, SEPSIS AND ANEMIA WI GUAIAC April 05, 2024 8:20pm PNEUMONIA, AE COPD, SEPSIS AND ANEMIA WI GUAIAC April 06, 2024 7:48am PNEUMONIA, AE COPD, SEPSIS AND ANEMIA WI GUAIAC April 06, 2024 10:41am PNEUMONIA, AE COPD, SEPSIS AND ANEMIA WI GUAIAC April 06, 2024 4:34pm PNEUMONIA, AE COPD, SEPSIS AND ANEMIA WI GUAIAC April 07, 2024 7:49am PNEUMONIA, AE COPD, SEPSIS AND ANEMIA WI GUAIAC April 07, 2024 8:55am PNEUMONIA, AE COPD, SEPSIS AND ANEMIA WI GUAIAC April 07, 2024 5:14pm PNEUMONIA, AE COPD, SEPSIS AND ANEMIA WI TH GUAIAC April 08, 2024 4:44pm 6 M FU April 22, 2024 9:11am 3MO LABS April 27, 2024 1:14 pm 8 WK FU May 18, 2024 2:1 4pm 2 UNITS PRBC May 27, 2024 1:00 pm SUSPECT SEPSIS SECONDARY TO SUSPECTED PN EUMONIA June 20, 2024 6:06pm SUSPECT SEPSIS SECONDARY TO SUSPECTED PN EUMONIA June 21, 2024 7:09am SUSPECT SEPSIS SECONDARY TO SUSPECTED PN EUMONIA June 21, 2024 8:13am SUSPECT SEPSIS SECONDARY TO SUSPECTED PN EUMONIA June 22, 2024 6:41am SUSPECT SEPSIS SECONDARY TO SUSPECTED PN EUMONIA June 22, 2024 7:42am SUSPECT SEPSIS SECONDARY TO SUSPECTED PN EUMONIA June 23, 2024 5:47am SUSPECT SEPSIS SECONDARY TO SUSPECTED PN EUMONIA June 23, 2024 7:33am SUSPECT SEPSIS SECONDARY TO SUSPECTED PN EUMONIA June 24, 2024 8:30am SUSPECT SEPSIS SECONDARY TO SUSPECTED PN EUMONIA June 25, 2024 9:29am STANDING ORDWER WEEKLY BMP, CBC VANC THR OUGH June 28, 2024 10:04am ACTIVASE June 29, 2024 9:43am Reason for Visit Admit Date Bronchiectasis March 05, 2024 1 2:53pm Chronic hypoxemic respiratory failure Ja nuary 2024 12:53pm COPD (chronic obstructive pulmonary dise ase) March 05, 2024 12:53pm Nicotine dependence, cigarettes, in gurvinder ssion March 05, 2024 12:53pm HFrEF (heart failure with reduced ejecti on fraction) March 16, 2024 11:35am Essential hypertension March 16 11:35am History of coronary artery stent placeme nt March 16, 2024 11:35am Hyperlipidemia March 16, 2024 1 1:35am Iron deficiency anemia March 16 11:35am Acute anemia April 05, 2024 8:20pm Anemia April 05, 2024 8:20pm Atrial fibrillation, controlled April 05, 2024 8:20pm Guaiac positive stools April 05 8:20pm Hypoxia April 05, 2024 8:20pm Nausea & vomiting April 05, 2024 8:20pm Respiratory insufficiency April 05, 2024 8:20pm Right lower lobe pneumonia March 8:20pm Chronic hypoxemic respiratory failure Fe bruary 2024 8:20pm COPD (chronic obstructive pulmonary dise ase) April 05, 2024 8:20pm COPD with exacerbation April 05 8:20pm GI bleed April 22, 2024 9:11am Iron deficiency anemia April 22 9:11am Iron deficiency anemia April 27, 2024 1 :14pm 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 April 27, 2024 1:14pm Bronchiectasis May 18, 2024 2:1 4pm Chronic hypoxemic respiratory failure Ma [facility] 2024 2:14pm COPD (chronic obstructive pulmonary dise ase) May 18, 2024 2:14pm Nicotine dependence, cigarettes, in gurvinder ssion May 18, 2024 2:14pm Acute alteration in mental status June 20, 2024 6:06pm Acute and chronic respiratory failure wi hypoxia June 20, 2024 6:06pm MRSA bacteremia June 20, 2024 6:0 6pm Sepsis June 20, 2024 6:0 6pm Claudication, intermittent June 20, 2 025 6:06pm PAD (peripheral artery disease) June 202024 6:06pm Chief Complaint Admit Date 6 M FU March 16, 2024 1 1:35am PNEUMONIA, AE COPD, SEPSIS AND ANEMIA WI GUAIAC April 05, 2024 8:20pm PNEUMONIA, AE COPD, SEPSIS AND ANEMIA WI GUAIAC April 06, 2024 7:48am PNEUMONIA, AE COPD, SEPSIS AND ANEMIA WI GUAIAC April 06, 2024 10:41am PNEUMONIA, AE COPD, SEPSIS AND ANEMIA WI GUAIAC April 06, 2024 4:34pm PNEUMONIA, AE COPD, SEPSIS AND ANEMIA WI GUAIAC April 07, 2024 7:49am PNEUMONIA, AE COPD, SEPSIS AND ANEMIA WI GUAIAC April 07, 2024 8:55am PNEUMONIA, AE COPD, SEPSIS AND ANEMIA WI GUAIAC April 07, 2024 5:14pm PNEUMONIA, AE COPD, SEPSIS AND ANEMIA WI GUAIAC April 08, 2024 4:44pm 6 M FU April 22, 2024 9:11am 3MO LABS April 27, 2024 1:14 pm 8 WK FU May 18, 2024 2:1 4pm 2 UNITS PRBC May 27, 2024 1:00 pm SUSPECT SEPSIS SECONDARY TO SUSPECTED PN EUMONIA June 20, 2024 6:06pm SUSPECT SEPSIS SECONDARY TO SUSPECTED PN EUMONIA June 21, 2024 7:09am SUSPECT SEPSIS SECONDARY TO SUSPECTED PN EUMONIA June 21, 2024 8:13am SUSPECT SEPSIS SECONDARY TO SUSPECTED PN EUMONIA June 22, 2024 6:41am SUSPECT SEPSIS SECONDARY TO SUSPECTED PN EUMONIA June 22, 2024 7:42am SUSPECT SEPSIS SECONDARY TO SUSPECTED PN EUMONIA June 23, 2024 5:47am SUSPECT SEPSIS SECONDARY TO SUSPECTED PN EUMONIA June 23, 2024 7:33am SUSPECT SEPSIS SECONDARY TO SUSPECTED PN EUMONIA June 24, 2024 8:30am SUSPECT SEPSIS SECONDARY TO SUSPECTED PN EUMONIA June 25, 2024 9:29am STANDING ORDWER WEEKLY BMP, CBC VANC THR OUGH June 28, 2024 10:04am ACTIVASE June 29, 2024 9:43am 4 M FU June 30, 2024 10:05a m General illness July 08, 2024 12:28 pm Reason for Visit Admit Date HFrEF (heart failure with reduced ejecti on fraction) March 16, 2024 11:35am Essential hypertension March 16 11:35am History of coronary artery stent placeme nt March 16, 2024 11:35am Hyperlipidemia March 16, 2024 1 1:35am Iron deficiency anemia March 16 11:35am Acute anemia April 05, 2024 8:20pm Anemia April 05, 2024 8:20pm Atrial fibrillation, controlled April 05, 2024 8:20pm Guaiac positive stools April 05 8:20pm Hypoxia April 05, 2024 8:20pm Nausea & vomiting April 05, 2024 8:20pm Respiratory insufficiency April 05, 2024 8:20pm Right lower lobe pneumonia March 8:20pm Chronic hypoxemic respiratory failure Fe bruary 2024 8:20pm COPD (chronic obstructive pulmonary dise ase) April 05, 2024 8:20pm COPD with exacerbation April 05 8:20pm GI bleed April 22, 2024 9:11am Iron deficiency anemia April 22 9:11am Iron deficiency anemia April 27, 2024 1 :14pm 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 April 27, 2024 1:14pm Bronchiectasis May 18, 2024 2:1 4pm Chronic hypoxemic respiratory failure [facility] 2024 2:14pm COPD (chronic obstructive pulmonary dise ase) May 18, 2024 2:14pm Nicotine dependence, cigarettes, in gurvinder ssion May 18, 2024 2:14pm MRSA bacteremia June 20, 2024 6:0 6pm Acute alteration in mental status June 20, 2024 6:06pm Acute and chronic respiratory failure wi hypoxia June 20, 2024 6:06pm Sepsis June 20, 2024 6:0 6pm Claudication, intermittent June 20, 6:06pm PAD (peripheral artery disease) June 202024 6:06pm Chief Complaint Admit Date 6 M March 16, 2024 1 1:35am PNEUMONIA, AE COPD, SEPSIS AND ANEMIA WI GUAIAC April 05, 2024 8:20pm PNEUMONIA, AE COPD, SEPSIS AND ANEMIA WI GUAIAC April 06, 2024 7:48am PNEUMONIA, AE COPD, SEPSIS AND ANEMIA WI GUAIAC April 06, 2024 10:41am PNEUMONIA, AE COPD, SEPSIS AND ANEMIA WI GUAIAC April 06, 2024 4:34pm PNEUMONIA, AE COPD, SEPSIS AND ANEMIA WI GUAIAC April 07, 2024 7:49am PNEUMONIA, AE COPD, SEPSIS AND ANEMIA WI GUAIAC April 07, 2024 8:55am PNEUMONIA, AE COPD, SEPSIS AND ANEMIA WI GUAIAC April 07, 2024 5:14pm PNEUMONIA, AE COPD, SEPSIS AND ANEMIA WI GUAIAC April 08, 2024 4:44pm 6 M FU April 22, 2024 9:11am 3MO LABS April 27, 2024 1:14 pm 8 WK FU May 18, 2024 2:1 4pm 2 UNITS PRBC May 27, 2024 1:00 pm SUSPECT SEPSIS SECONDARY TO SUSPECTED PN EUMONIA June 20, 2024 6:06pm SUSPECT SEPSIS SECONDARY TO SUSPECTED PN EUMONIA June 21, 2024 7:09am SUSPECT SEPSIS SECONDARY TO SUSPECTED PN EUMONIA June 21, 2024 8:13am SUSPECT SEPSIS SECONDARY TO SUSPECTED PN EUMONIA June 22, 2024 6:41am SUSPECT SEPSIS SECONDARY TO SUSPECTED PN EUMONIA June 22, 2024 7:42am SUSPECT SEPSIS SECONDARY TO SUSPECTED PN EUMONIA June 23, 2024 5:47am SUSPECT SEPSIS SECONDARY TO SUSPECTED PN EUMONIA June 23, 2024 7:33am SUSPECT SEPSIS SECONDARY TO SUSPECTED PN EUMONIA June 24, 2024 8:30am SUSPECT SEPSIS SECONDARY TO SUSPECTED PN EUMONIA June 25, 2024 9:29am STANDING ORDWER WEEKLY BMP, CBC VANC THR OUGH June 28, 2024 10:04am ACTIVASE June 29, 2024 9:43am 4 M FU June 30, 2024 10:05a m General illness July 08, 2024 12:28 pm J44.9 - Chronic obstructive pulmonary di sease, uns July 12, 2024 9:44am Nicotine dependence, cigarettes, uncompl icated July 12, 2024 10:12am Chief Complaint Admit Date PNEUMONIA, AE COPD, SEPSIS AND ANEMIA WI GUAIAC April 05, 2024 8:20pm PNEUMONIA, AE COPD, SEPSIS AND ANEMIA WI GUAIAC April 06, 2024 7:48am PNEUMONIA, AE COPD, SEPSIS AND ANEMIA WI GUAIAC April 06, 2024 10:41am PNEUMONIA, AE COPD, SEPSIS AND ANEMIA WI GUAIAC April 06, 2024 4:34pm PNEUMONIA, AE COPD, SEPSIS AND ANEMIA WI GUAIAC April 07, 2024 7:49am PNEUMONIA, AE COPD, SEPSIS AND ANEMIA WI GUAIAC April 07, 2024 8:55am PNEUMONIA, AE COPD, SEPSIS AND ANEMIA WI GUAIAC April 07, 2024 5:14pm PNEUMONIA, AE COPD, SEPSIS AND ANEMIA WI GUAIAC April 08, 2024 4:44pm 6 M FU April 22, 2024 9:11am 3MO LABS April 27, 2024 1:14 pm 8 WK FU May 18, 2024 2:1 4pm SUSPECT SEPSIS SECONDARY TO SUSPECTED PN EUMONIA June 20, 2024 6:06pm SUSPECT SEPSIS SECONDARY TO SUSPECTED PN EUMONIA June 21, 2024 7:09am SUSPECT SEPSIS SECONDARY TO SUSPECTED PN EUMONIA June 21, 2024 8:13am SUSPECT SEPSIS SECONDARY TO SUSPECTED PN EUMONIA June 22, 2024 6:41am SUSPECT SEPSIS SECONDARY TO SUSPECTED PN EUMONIA June 22, 2024 7:42am SUSPECT SEPSIS SECONDARY TO SUSPECTED PN EUMONIA June 23, 2024 5:47am SUSPECT SEPSIS SECONDARY TO SUSPECTED PN EUMONIA June 23, 2024 7:33am SUSPECT SEPSIS SECONDARY TO SUSPECTED PN EUMONIA June 24, 2024 8:30am SUSPECT SEPSIS SECONDARY TO SUSPECTED PN EUMONIA June 25, 2024 9:29am ACTIVASE June 29, 2024 9:43am 4 M FU June 30, 2024 10:05a m General illness July 08, 2024 12:28 pm J44.9 - Chronic obstructive pulmonary di sease, uns July 12, 2024 9:44am Nicotine dependence, cigarettes, uncompl icated July 12, 2024 10:12am STANDING ORDWER WEEKLY BMP, CBC VANC THR OUGH July 14, 2024 12:30pm LABS July 20, 2024 1:15p m 12WKS LABS July 20, 2024 1:32p m Reason for Visit Admit Date Acute anemia April 05, 2024 8:20pm Anemia April 05, 2024 8:20pm Atrial fibrillation, controlled April 05, 2024 8:20pm Guaiac positive stools April 05 8:20pm Hypoxia April 05, 2024 8:20pm Nausea & vomiting April 05, 2024 8:20pm Respiratory insufficiency April 05, 2024 8:20pm Right lower lobe pneumonia March 8:20pm Chronic hypoxemic respiratory failure Fe bruary 2024 8:20pm COPD (chronic obstructive pulmonary dise ase) April 05, 2024 8:20pm COPD with exacerbation April 05 8:20pm GI bleed April 22, 2024 9:11am Iron deficiency anemia April 22 9:11am Iron deficiency anemia April 27, 2024 1 :14pm 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 April 27, 2024 1:14pm Bronchiectasis May 18, 2024 2:1 4pm Chronic hypoxemic respiratory failure [facility] 2024 2:14pm COPD (chronic obstructive pulmonary dise ase) May 18, 2024 2:14pm Nicotine dependence, cigarettes, in gurvinder ssion May 18, 2024 2:14pm MRSA bacteremia June 20, 2024 6:0 6pm Acute alteration in mental status June 20, 2024 6:06pm Acute and chronic respiratory failure wi th hypoxia June 20, 2024 6:06pm Sepsis June 20, 2024 6:0 6pm Claudication, intermittent June 20, 2 025 6:06pm PAD (peripheral artery disease) June 202024 6:06pm Iron deficiency anemia July 20, 2024 1: 32pm 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 July 20, 2024 1:32pm Chief Complaint Admit Date PNEUMONIA, AE COPD, SEPSIS AND ANEMIA WI GUAIAC April 05, 2024 8:20pm PNEUMONIA, AE COPD, SEPSIS AND ANEMIA WI GUAIAC April 06, 2024 7:48am PNEUMONIA, AE COPD, SEPSIS AND ANEMIA WI GUAIAC April 06, 2024 10:41am PNEUMONIA, AE COPD, SEPSIS AND ANEMIA WI GUAIAC April 06, 2024 4:34pm PNEUMONIA, AE COPD, SEPSIS AND ANEMIA WI GUAIAC April 07, 2024 7:49am PNEUMONIA, AE COPD, SEPSIS AND ANEMIA WI GUAIAC April 07, 2024 8:55am PNEUMONIA, AE COPD, SEPSIS AND ANEMIA WI GUAIAC April 07, 2024 5:14pm PNEUMONIA, AE COPD, SEPSIS AND ANEMIA WI GUAIAC April 08, 2024 4:44pm 6 M FU April 22, 2024 9:11am 3MO LABS April 27, 2024 1:14 pm 8 WK FU May 18, 2024 2:1 4pm SUSPECT SEPSIS SECONDARY TO SUSPECTED PN EUMONIA June 20, 2024 6:06pm SUSPECT SEPSIS SECONDARY TO SUSPECTED PN EUMONIA June 21, 2024 7:09am SUSPECT SEPSIS SECONDARY TO SUSPECTED PN EUMONIA June 21, 2024 8:13am SUSPECT SEPSIS SECONDARY TO SUSPECTED PN EUMONIA June 22, 2024 6:41am SUSPECT SEPSIS SECONDARY TO SUSPECTED PN EUMONIA June 22, 2024 7:42am SUSPECT SEPSIS SECONDARY TO SUSPECTED PN EUMONIA June 23, 2024 5:47am SUSPECT SEPSIS SECONDARY TO SUSPECTED PN EUMONIA June 23, 2024 7:33am SUSPECT SEPSIS SECONDARY TO SUSPECTED PN EUMONIA June 24, 2024 8:30am SUSPECT SEPSIS SECONDARY TO SUSPECTED PN EUMONIA June 25, 2024 9:29am ACTIVASE June 29, 2024 9:43am 4 M FU June 30, 2024 10:05a m General illness July 08, 2024 12:28 pm J44.9 - Chronic obstructive pulmonary di sease, uns July 12, 2024 9:44am Nicotine dependence, cigarettes, uncompl icated July 12, 2024 10:12am STANDING ORDWER WEEKLY BMP, CBC VANC THR OUGH July 14, 2024 12:30pm LABS July 20, 2024 1:15p m 12WKS LABS July 20, 2024 1:32p m LABSPEC DROP OFF EORDER July 23, 2024 1 :18pm Chief Complaint Admit Date PNEUMONIA, AE COPD, SEPSIS AND ANEMIA WI GUAIAC April 05, 2024 8:20pm PNEUMONIA, AE COPD, SEPSIS AND ANEMIA WI GUAIAC April 06, 2024 7:48am PNEUMONIA, AE COPD, SEPSIS AND ANEMIA WI GUAIAC April 06, 2024 10:41am PNEUMONIA, AE COPD, SEPSIS AND ANEMIA WI GUAIAC April 06, 2024 4:34pm PNEUMONIA, AE COPD, SEPSIS AND ANEMIA WI GUAIAC April 07, 2024 7:49am PNEUMONIA, AE COPD, SEPSIS AND ANEMIA WI TH GUAIAC April 07, 2024 8:55am PNEUMONIA, AE COPD, SEPSIS AND ANEMIA WI TH GUAIAC April 07, 2024 5:14pm PNEUMONIA, AE COPD, SEPSIS AND ANEMIA WI GUAIAC April 08, 2024 4:44pm 6 M FU April 22, 2024 9:11am 3MO LABS April 27, 2024 1:14 pm 8 WK FU May 18, 2024 2:1 4pm SUSPECT SEPSIS SECONDARY TO SUSPECTED PN EUMONIA June 20, 2024 6:06pm SUSPECT SEPSIS SECONDARY TO SUSPECTED PN EUMONIA June 21, 2024 7:09am SUSPECT SEPSIS SECONDARY TO SUSPECTED PN EUMONIA June 21, 2024 8:13am SUSPECT SEPSIS SECONDARY TO SUSPECTED PN EUMONIA June 22, 2024 6:41am SUSPECT SEPSIS SECONDARY TO SUSPECTED PN EUMONIA June 22, 2024 7:42am SUSPECT SEPSIS SECONDARY TO SUSPECTED PN EUMONIA June 23, 2024 5:47am SUSPECT SEPSIS SECONDARY TO SUSPECTED PN EUMONIA June 23, 2024 7:33am SUSPECT SEPSIS SECONDARY TO SUSPECTED PN EUMONIA June 24, 2024 8:30am SUSPECT SEPSIS SECONDARY TO SUSPECTED PN EUMONIA June 25, 2024 9:29am ACTIVASE June 29, 2024 9:43am 4 M FU June 30, 2024 10:05a m General illness July 08, 2024 12:28 pm J44.9 - Chronic obstructive pulmonary di sease, uns July 12, 2024 9:44am Nicotine dependence, cigarettes, uncompl icated July 12, 2024 10:12am STANDING ORDWER WEEKLY BMP, CBC VANC THR OUGH July 14, 2024 12:30pm 12WKS LABS July 20, 2024 1:32p m LABSPEC DROP OFF EORDER July 23, 2024 1 :18pm LABS July 27, 2024 1:00p m Additional Source Comments (unrecognized sect ion and content) No Status Records FoundNo Status Records FoundNo Status Records Found INFORMATION SOURCE (unrecogn ized section and content) DATE CREATED AUTHOR 01/29/2019 [facility] DATE CREATED AUTHOR AUTHOR'S ORGANIZ ATION 03/23/2023 [facility]ly [facility] DATE CREATED AUTHOR AUTHOR'S ORGANIZ ATION 08/16/2024 [facility] Goals (unrecognized section and content) Goals may be documented in a n alternate sectionGoals may be documented in an alternate sectionGoals may be documented in an alternate sectionGoals may be documented in an alternate sectionGoals may be documented in an alternate sectionGoals may be documented in an alternate sectionGoals may be documented in an alternate sectionGoals may be documented in an alternate sectionGoals may be documented in an alternate sectionGoals may be documented in an alternate section Care Teams (unrecognized sec tion and content) Team Status: Active Member Role Status Dates Dr. Mario Greenberg , Family Provider Active DANNIELLE PIÑA BOX FEEDER-C Primary Care Provider Active Team Status: Inactive Member Role Status Dates DANNIELLE PIÑA NP-C Primary Care Provider, Referring Provider Active Dr. Tobi Zapata MD Attending Provider Active Team Status: Active Member Role Status Dates DANNIELLE PIÑA BOX FEEDER-C Primary Care Provider Active Dr. Margie Joy DO Emergency Provider Active Dr. Janice Mackey MD Admit Provider, Attending Provider, Other Provider Active Team Status: Active Member Role Status Dates DANNIELLE PIÑA BOX FEEDER-C Primary Care Provider Active Dr. Margie Joy DO Emergency Provider Active Dr. Janice Mackey MD Admit Provider, Other Provider Active Dr. Suze Rosas MD Attending Provider, Other Provider Active Team Status: Active Member Role Status Meagan PIÑA BOX FEEDER-C Primary Care Provider Active Dr. Margie Joy , Emergency Provider Active Dr. Janice Mackey MD Admit Provider, Other Provider Active Dr. Suze Rosas MD Other Provider Active Dr. Jordan Ortiz MD Attending Provider Active Team Status: Active Member Role Status Meagan PIÑA , BOX FEEDER-C Primary Care Provider Active Dr. Margie Joy DO Emergency Provider Active Dr. Janice Mackey MD Admit Provider, Other Provider Active Dr. Jordan Ortiz MD Referring Provider, Other Provid er Active Dr. Suze Rosas MD Other Provider Active Dr. Khai Galeana DO Attending Provider Active Team Status: Active Member Role Status Meagan PIÑA , BOX FEEDER-C Primary Care Provider Active Dr. Khai Galeana DO Attending Provider Active Team Status: Active Member Role Status Meagan PIÑA , BOX FEEDER-C Primary Care Provider Active Dr. Margie Joy DO Emergency Provider Active Dr. Janice Mackey MD Admit Provider, Other Provider Active Dr. Jordan Ortiz MD Attending Provider, Other Provid er Active Dr. Suze Rosas MD Other Provider Active Team Status: Inactive Member Role Status Meagan PIÑA , BOX FEEDER-C Primary Care Provider, Referring Provider Active Dr. Khai Galeana , Attending Provider Active Team Status: Inactive Member Role Status Meagan PIÑA , BOX FEEDER-C Primary Care Provider, Referring Provider Active Dr. Anthony Singleton DO Attending Provider Active Team Status: Active Member Role Status Meagan PIÑA , BOX FEEDER-C Primary Care Provider Active Dr. Faisal Walker MD Emergency Provider Active Dr. Tobi Shannon MD Admit Provider, Attending Provider, Other Provider Active Team Status: Active Member Role Status Meagan PIÑA , BOX FEEDER-C Primary Care Provider Active Dr. Faisal Walker MD Emergency Provider Active Dr. Tobi Shannon MD Admit Provider, Referring Provider, Other Provider Active Dr. Suze Rosas MD Other Provider Active Dr. Alexi Roblero MD Attending Provider, Other Provid er Active Dr. Anthony Singleton , Other Provider Active Dr. Rambo Bruner MD Other Provider Active Dr. Afshin Pablo MD Other Provider Active More Pulido BOX FEEDER, BOX FEEDER-C Other Provider Active Team Status: Active Member Role Status Meagan PIÑA , BOX FEEDER-C Primary Care Provider Active Dr. Faisal Walker MD Emergency Provider Active Dr. Tobi Shannon MD Admit Provider, Other Provide r Active Dr. Suze Rosas MD Attending Provider, Other Provider Active Dr. Alexi Roblero MD Other Provider Active Dr. Anthony Singleton DO Other Provider Active Dr. Rambo Bruner MD Other Provider Active Dr. Afshin Pablo MD Other Provider Active More Pulido BOX FEEDER, BOX FEEDER-C Other Provider Active Team Status: Active Member Role Status Meagan PIÑA , BOX FEEDER-C Primary Care Provider Active Dr. Faisal Walker MD Emergency Provider Active Dr. Tobi Shannon MD Admit Provider, Other Provide r Active Dr. Alexi Roblero MD Other Provider Active Dr. Anthony Singleton DO Attending Provider, Other Provide r Active Dr. Rambo Bruner MD Other Provider Active Dr. Afshin Pablo MD Other Provider Active More Pulido NP, BOX FEEDER-C Other Provider Active Dr. Jordan Ortiz MD Other Provider Active Dr. Suze Rosas MD Other Provider Active Team Status: Active Member Role Status Meagan PIÑA , BOX FEEDER-C Primary Care Provider Active Dr. Faisal Walker MD Emergency Provider Active Dr. Tobi Shannon MD Admit Provider, Other Provide r Active Dr. Alexi Roblero MD Other Provider Active Dr. Anthony Singleton DO Other Provider Active Dr. Rambo Bruner MD Other Provider Active Dr. Afshin Pablo MD Other Provider Active More Pulido NP, BOX FEEDER-C Other Provider Active Dr. Jordan Ortiz MD Attending Provider, Other Provid er Active Dr. Suze Rosas MD Other Provider Active Team Status: Active Member Role Status Meagan PIÑA , BOX FEEDER-C Primary Care Provider Active Dr. Tobi Zapata MD Attending Provider, Referring Pro vider Active Team Status: Inactive Member Role Status Meagan PIÑA , BOX FEEDER-C Primary Care Provider Active Dr. Margie Joy DO Emergency Provider Active Dr. Janice Mackey MD Admit Provider, Other Provider Active Dr. Jordan Ortiz MD Attending Provider Active Dr. Suze Rosas MD Other Provider Active Team Status: Inactive Member Role Status Dates DANNIELLE ONEALMONS , BOX FEEDER-C Primary Care Provider Active Dr. Khai Galeana , Attending Provider Active Team Status: Inactive Member Role Status Dates DANNIELLE PIÑA , BOX FEEDER-C Primary Care Provider, Attending Provider Active Team Status: Inactive Member Role Status Dates DANNIELLE ONEALMONS , BOX FEEDER-C Primary Care Provider Active Dr. Faisal Walker MD Emergency Provider Active Dr. Tobi Shannon MD Admit Provider, Other Provide r Active Dr. Alexi Roblero MD Other Provider Active Dr. Anthony Singleton DO Other Provider Active Dr. Rambo Bruner MD Other Provider Active Dr. Afshin Pablo MD Other Provider Active More Pulido BOX FEEDER, BOX FEEDER-C Other Provider Active Dr. Jordan Ortiz MD Attending Provider Active Dr. Suze Rosas MD Other Provider Active Team Status: Active Member Role Status Dates DANNIELLE ONEALMONS , BOX FEEDER-C Primary Care Provider Active Dr. Anthony Singleton DO Attending Provider, Other Provide r Active Team Status: Inactive Member Role Status Dates DANNIELLE BRYANS , BOX FEEDER-C Primary Care Provider Active Dr. Anthony Singleton DO Attending Provider Active Team Status: Active Member Role Status Dates DANNIELLE BRYANS , BOX FEEDER-C Primary Care Provider Active Dr. Anthony Singleton DO Attending Provider Active Team Status: Inactive Member Role Status Dates DANNIELLE BRYANS , BOX FEEDER-C Primary Care Provider, Referring Provider Active More Pulido BOX FEEDER, BOX FEEDER-C Attending Provider Active Team Status: Inactive Member Role Status Dates DANNIELLE PIÑA , BOX FEEDER-C Primary Care Provid er, Attending Provider, Referring Provider Active Team Status: Active Member Role Status Dates DANNIELLE ONEALMONS , BOX FEEDER-C Primary Care Provider Active Dr. Anthony Singleton DO Attending Provider, Referring Provider, Other Provider Active Team Status: Inactive Member Role Status Dates DANNIELLE ONEALMONS , BOX FEEDER-C Primary Care Provider Active Dr. Khai Galeana DO Attending Provider, Referring Provider Active Dr. Nate Bearden MD Other Provider Active Team Status: Active Member Role Status Dates Dr. Mario Greenberg , Family Provider Active Dr. Donna Will MD Primary Care Provider Active Team Status: Inactive Member Role Status Dates DANNIELLE PIÑA , BOX FEEDER-C Primary Care Provider Active Dr. Donna Will MD Attending Provider Active Team Status: Inactive Member Role Status Dates DANNIELLE PIÑA , BOX FEEDER-C Primary Care Provider, Referring Provider Active FRIEN Active Dr. Khia Galeana DO Attending Provider Active Team Status: Inactive Member Role Status Dates DANNIELLE PIÑA , BOX FEEDER-C Primary Care Provider Active Dr. Nate Bearden MD Attending Provider, Referr ing Provider Active Team Status: Inactive Member Role Status Dates Dr. Donna Will MD Primary Care Provider Active Adam Freeman MD Emergency Provider Active Team Status: Active Member Role Status Dates DANNIELLE PIÑA BOX FEEDER-C Primary Care Provider Active Dr. Khai Galeana DO Attending Provider, Referring Provider Active Dr. Tobi Zapata MD Other Provider Active Team Status: Inactive Member Role Status Dates DANNIELLE PIÑA , BOX FEEDER-C Referring Provider Active Dr. Norm Mello MD Attending Provider Active Dr. Donna Will MD Primary Care Provider Active Team Status: Inactive Member Role Status Dates Dr. Tobi Zapata MD Attending Provider Active Dr. Donna Will MD Primary Care Provider, Referri ng Provider Active Team Status: Inactive Member Role Status Dates Dr. Donna Will MD Primary Care Provider, Referri ng Provider Active Martha Dodson BOX FEEDER, BOX FEEDER-C Attending Provider Active Team Status: Inactive Member Role Status Dates Dr. Donna Will MD Primary Care Provider, Referri ng Provider Active Dr. Tobi Zapata MD Attending Provider Active Team Status: Inactive Member Role Status Dates Dr. Donna Will MD Primary Care Provider Active Adam Freeman MD Attending Provider, Emergency Provid er Active Team Status: Active Member Role Status Dates Dr. Donna Will MD Primary Care Provider Active Dr. Jj Garcia MD Emergency Provider Active Dr. Loki Lozoya DO Admit Provider, Attending Provider Active Team Status: Inactive Member Role Status Dates DANNIELLE PIÑA , BOX FEEDER-C Primary Care Provider Active Dr. Khai Galeana DO Attending Provider, Referring Provider Active Dr. Tobi Zapata MD Other Provider Active Team Status: Active Member Role Status Dates Dr. Donna Will MD Primary Care Provider Active Dr. Jj Garcia MD Emergency Provider Active Dr. Loki Lozoya DO Admit Provi jose antonio, Attending Provider, Other Provider Active Team Status: Active Member Role Status Dates Dr. Donna Will MD Primary Care Provider Active Dr. Jj Garcia MD Emergency Provider Active Dr. Loki Lozoya DO Admit Provider, Other Pro vider Active Dr. Jordan Ortiz MD Attending Provider, Other Provid er Active Team Status: Active Member Role Status Dates Dr. Donna Will MD Primary Care Provider Active Dr. Chicho Carson MD Attending Provider Activ e Team Status: Inactive Member Role Status Dates Dr. Donna Will MD Primary Care Provider Active Dr. Jj Garcia MD Emergency Provider Active Dr. Loki Lozoya DO Admit Provider, Other Pro vider Active Dr. Jordan Ortiz MD Attending Provider Active Team Status: Inactive Member Role Status Dates Dr. Donna Will MD Primary Care Provider, Attendi ng Provider Active Team Status: Active Member Role Status Dates Dr. Donna Will MD Primary Care Provider Active Dr. Chicho Carson MD Attending Provider Activ e Dr. Loki Lozoya DO Referring Provider Active Team Status: Inactive Member Role Status Dates Dr. Donna Will MD Primary Care Provider, Referri ng Provider Active More Pulido BOX FEEDER, BOX FEEDER-C Attending Provider Active Team Status: Inactive Member Role Status Dates More Pulido BOX FEEDER, BOX FEEDER-C Attending Provider Active Dr. Donna Will MD Primary Care Provider Active Team Status: Active Member Role Status Dates Dr. Donna Will MD Primary Care Provider Active Dr. Dwain Nowak MD Emergency Provider Active Dr. Mable Pritchard MD Admit Provider, Attending Provid er Active Team Status: Active Member Role Status Dates Dr. Donna Will MD Primary Care Provider Active Dr. Dwain Nowak MD Emergency Provider Active Dr. Mable Pritchard MD Admit Provider, At tending Provider, Other Provider Active Team Status: Active Member Role Status Dates Dr. Donna Will MD Primary Care Provider Active Dr. Dwain Nowak MD Emergency Provider Active Dr. Mable Pritchard MD Admit Provider, Other Provider A ctive Dr. Jordan Ortiz MD Attending Provider, Other Provid er Active Team Status: Inactive Member Role Status Dates Dr. Donna Will MD Primary Care Provider Active Dr. Dwain Nowak MD Emergency Provider Active Dr. Mable Pritchard MD Admit Provider, Other Provider A ctive Dr. Jordan Ortiz MD Attending Provider Active Team Status: Active Member Role Status Dates Dr. Donna Will MD Primary Care Provider Active Dr. Norm Mello MD Attending Provider Active Dr. Jordan Ortiz MD Referring Provider Active Team Status: Active Member Role Status Dates Dr. Donna Will MD Primary Care Provider Active Dr. Eva Marie , Emergency Provider Active Dr. Nadira Ricks DO Admit Provider, Attending Provide r Active Team Status: Active Member Role Status Dates Dr. Donna Will MD Primary Care Provider Active Dr. Eva Marie , Emergency Provider Active Dr. Nadira Ricks , DO Admit Provider, Other Provider Ac tive Dr. Isaias Granados MD Other Provider Active Dr. Alexi Roblero MD Other Provider Active Dr. Anthony Singleton DO Attending Provider, Other Provide r Active Dr. Carlito Cárdenas MD Other Provider Active Dr. Claudine Andrade MD Other Provider Active Dr. Marvin Coats MD Other Provider Active Dr. Elizabeth Wilson MD Other Provider Active Dr. Aric Leon MD Other Provider Active Dr. Rajeev Dalton MD Other Provider Active Dr. Roberto Escalante MD Other Provider Active Dr. Madi Tavarez MD Other Provider Active Dr. Zhang Concepcion MD Other Provider Active Dr. Clive Sharp MD Referring Provider, Other Provi jose antonio Active Team Status: Active Member Role Status Dates Dr. Donna Will MD Primary Care Provider Active Dr. Eva Marie DO Emergency Provider Active Dr. Nadira Ricks DO Admit Provider, Other Provider Ac tive Dr. Isaias Granados MD Other Provider Active Dr. Alexi Roblero MD Other Provider Active Dr. Anthony Singleton DO Other Provider Active Dr. Carlito Cárdenas MD Other Provider Active Dr. Claudine Andrade MD Other Provider Active Dr. Marvin Coats MD Other Provider Active Dr. Elizabeth Wilson MD Other Provider Active Dr. Aric Leon MD Other Provider Active Dr. Rajeev Dalton MD Other Provider Active Dr. Roberto Escalante MD Other Provider Active Dr. Madi Tavarez MD Other Provider Active Dr. Zhang Concepcion MD Other Provider Active Dr. Clive Sharp MD Attending Provider, Other Provi jose antonio Active Team Status: Active Member Role Status Dates Dr. Donna Will MD Primary Care Provider Active Dr. Norm Mello MD Attending Provider, Referring Pro vider Active Team Status: Active Member Role Status Dates Dr. Donna Will MD Primary Care Provider Active Dr. Eva Marie DO Emergency Provider Active Dr. Nadira Ricks , DO Admit Provider, Other Provider Ac tive Dr. Isaias Granados MD Other Provider Active Dr. Alexi Roblero MD Other Provider Active Dr. Anthony Singleton , Other Provider Active Dr. Carlito Cárdenas MD Other Provider Active Dr. Claudine Andrade MD Other Provider Active Dr. Marvin Coats MD Other Provider Active Dr. Elizabeth Wilson MD Other Provider Active Dr. Aric Leon MD Other Provider Active Dr. Rajeev Dalton MD Other Provider Active Dr. Roberto Escalante MD Other Provider Active Dr. Madi Tavarez MD Other Provider Active Dr. Zhang Concepcion MD Other Provider Active Dr. Clive Sharp MD Referring Provider, Other Provi jose antonio Active Dr. Khai Galeana , Attending Provider Active Team Status: Active Member Role Status Dates Dr. Donna Will MD Primary Care Provider Active Dr. Khai Galeana , Attending Provider Active Dr. Clive Sharp MD Referring Provider Active Team Status: Active Member Role Status Dates Dr. Donna Will MD Primary Care Provider Active Dr. Eva Marie , Emergency Provider Active Dr. Nadira Ricks , Admit Provider, Other Provider Ac tive Dr. Isaias Granados MD Other Provider Active Dr. Alexi Roblero MD Other Provider Active Dr. Anthony Singleton , Other Provider Active Dr. Carlito Cárdenas MD Other Provider Active Dr. Claudine Andrade MD Other Provider Active Dr. Marvin Coats MD Other Provider Active Dr. Elizabeth Wilson MD Other Provider Active Dr. Aric Leon MD Other Provider Active Dr. Rajeev Dalton MD Other Provider Active Dr. Roberto Escalante MD Other Provider Active Dr. Madi Tavarez MD Other Provider Active Dr. Zhang Concepcion MD Other Provider Active Dr. Clive Sharp MD Other Provider Active Bethany Castro NP-C Attending Provider Active Team Status: Active Member Role Status Dates Dr. Donna Will MD Primary Care Provider Active Dr. Eva Marie DO Emergency Provider Active Dr. Nadira Ricks DO Admit Provider, Other Provider Ac tive Dr. Clive Sharp MD Referring Provider, Other Provi jose antonio Active Dr. Anthony Singleton DO Attending Provider Active Team Status: Active Member Role Status Dates Dr. Donna Will MD Primary Care Provider Active Dr. Eva Marie DO Emergency Provider Active Dr. Nadira Ricks DO Admit Provider, Other Provider Ac tive Dr. Clive Sharp MD Attending Provider, Other Provi jose antonio Active Team Status: Inactive Member Role Status Dates Dr. Donna Will MD Primary Care Provider Active Dr. Eva Marie DO Emergency Provider Active Dr. Nadira Ricks DO Admit Provider, Other Provider Ac tive Dr. Clive Sharp MD Attending Provider Active Team Status: Inactive Member Role Status Dates Dr. Donna Will MD Primary Care Pro vider, Attending Provider, Referring Provider Active Team Status: Inactive Member Role Status Dates Dr. Donna Wlil MD Primary Care Provider Active Dr. Tobi Zapata MD Attending Provider Active Team Status: Inactive Member Role Status Dates Dr. Donna Will MD Primary Care Provider, Referri ng Provider Active Jennifer Galdamez BOX FEEDER, BOX FEEDER-C Attending Provider Active Team Status: Active Member Role Status Dates Dr. Donna Will MD Primary Care Provider Active Jennifer Galdamez BOX FEEDER, BOX FEEDER-C Attending Provider Active Team Status: Inactive Member Role Status Dates Dr. Donna Will MD Primary Care Provider Active Jennifer Galdamez BOX FEEDER, BOX FEEDER-C Attending Provider Active Team Status: Active Member Role Status Dates Dr. Donna Will MD Primary Care Provider Active Dr. Tobi Zapata MD Referring Provider, Other Provide r Active Bethany Castro NP-C Attending Provider Active Team Status: Active Member Role Status Dates Dr. Donna Will MD Primary Care Provider Active Dr. Norm Mello MD Attending Provider Active Team Status: Inactive Member Role Status Dates Dr. Donna Will MD Primary Care Provider Active Dr. Tobi Zapata MD Attending Provider, Referring Pro vider Active Team Status: Active Member Role Status Dates Dr. Donna Will MD Primary Care Provider Active Team Status: Inactive Member Role Status Dates Dr. Donna Will MD Primary Care Provider Active Start: March 03, 2024 End: March 03, 2024 Dr. Donna Will MD Attending Provider Active Start: March 03, 2024 End: March 03, 2024 Team Status: Inactive Member Role Status Dates Dr. Donna Will MD Primary Care Provider Active Start: March 05, 2024 End: March 05, 2024 Dr. Donna Will MD Referring Provider Active Start: March 05, 2024 End: March 05, 2024 Gris Naik NP-C Attending Provider Active Start: March 05, 2024 End: March 05, 2024 Team Status: Inactive Member Role Status Dates Dr. Donna Will MD Primary Care Provider Active Start: March 05, 2024 End: March 05, 2024 ROSANGELA GoreC Attending Provider Active Start: March 05, 2024 End: March 05, 2024 SORIN Gore Referring Provider Active Start: March 05, 2024 End: March 05, 2024 Team Status: Inactive Member Role Status Dates Dr. Donna Will MD Primary Care Provider Active Start: March 16, 2024 End: March 16, 2024 Dr. Donna Will MD Referring Provider Active Start: March 16, 2024 End: March 16, 2024 Elizabeth Velazquez PA, PA Attending Provider Active Start: March 16, 2024 End: March 16, 2024 Team Status: Inactive Member Role Status Dates Dr. Donna Will MD Primary Care Provider Active Start: April 05, 2024 End: April 08, 2024 Dr. Malachi Paredes DO Emergency Provider Active Start : April 05, 2024 End: April 08, 2024 Dr. Jordan Mendoza DO Admit Provider Active Start: April 05, 2024 End: April 08, 2024 Dr. Jordan Mednoza DO Other Provider Active Start: April 05, 2024 End: April 08, 2024 Dr. Isaias Granados MD Other Provider Active Start: April 05, 2024 End: April 08, 2024 Dr. Cisco Cortés MD Other Provider Active Start: April 05, 2024 End: April 08, 2024 Dr. Alexi Roblero MD Other Provider Active Star t: April 05, 2024 End: April 08, 2024 Dr. Anthony Singleton DO Other Provider Active Start : April 05, 2024 End: April 08, 2024 Dr. Jordan Alonzo MD Other Provider Active Sta rt: April 05, 2024 End: April 08, 2024 Dr. Meet Mckeon MD Other Provider Active St art: April 05, 2024 End: April 08, 2024 Dr. Carlito Cárdenas MD Other Provider Active S tart: April 05, 2024 End: April 08, 2024 Dr. Claudine Andrade MD Other Provider Active Start: April 05, 2024 End: April 08, 2024 Dr. Marvin Coats MD Other Provider Active Start : April 05, 2024 End: April 08, 2024 Dr. Dimas Alvarenga MD Other Provider Active Start: April 05, 2024 End: April 08, 2024 Dr. Kashif Berg MD Other Provider Active Start : April 05, 2024 End: April 08, 2024 Dr. Elizabeth Wilson MD Other Provider Active Star t: April 05, 2024 End: April 08, 2024 Dr. Aric Leon MD Other Provider Active Sta rt: April 05, 2024 End: April 08, 2024 Dr. Ashanti Dugan MD Other Provider Active Sta rt: April 05, 2024 End: April 08, 2024 Dr. Mitch Pinzon MD Other Provider Active Star t: April 05, 2024 End: April 08, 2024 Dr. Rajeev Dalton MD Other Provider Active St art: April 05, 2024 End: April 08, 2024 Dr. Roberto Escalante MD Other Provider Active Star t: April 05, 2024 End: April 08, 2024 Dr. Nikolai Keller DO Other Provider Active St art: April 05, 2024 End: April 08, 2024 Dr. Leyda Fischer MD Other Provider Active Start: April 05, 2024 End: April 08, 2024 Dr. Yolie Zapata MD Other Provider Active St art: April 05, 2024 End: April 08, 2024 Dr. Dao Avila DO Other Provider Active Start: April 05, 2024 End: April 08, 2024 Dr. Madi Tavarez MD Other Provider Active Star t: April 05, 2024 End: April 08, 2024 Dr. Zhang Concepcion MD Other Provider Active Sta rt: April 05, 2024 End: April 08, 2024 Dr. Huang Lazcano MD Attending Provider Active Start: April 05, 2024 End: April 08, 2024 Dr. Huang Lazcano MD Other Provider Active Start: April 05, 2024 Team Status: Active Member Role Status Dates Dr. Donna Will MD Primary Care Provider Active Start: April 06, 2024 Dr. Malachi Paredes DO Emergency Provider Active Start : April 06, 2024 Dr. Jordan Mendoza DO Admit Provider Active Start: April 06, 2024 Dr. Jordan Mendoza DO Other Provider Active Start: April 06, 2024 Dr. Isaias Granados MD Other Provider Active Start: April 06, 2024 Dr. Cisco Cortés MD Other Provider Active Start: April 06, 2024 Dr. Alexi Roblero MD Other Provider Active Star t: April 06, 2024 Dr. Anthony Singleton DO Attending Provider Active S tart: April 06, 2024 Dr. Anthony Singleton DO Other Provider Active Start : April 06, 2024 Dr. Jordan Alonzo MD Other Provider Active Sta rt: April 06, 2024 Dr. Meet Mckeon MD Other Provider Active St art: April 06, 2024 Dr. Carlito Cárdenas MD Other Provider Active S tart: April 06, 2024 Dr. Claudine Andrade MD Other Provider Active Start: April 06, 2024 Dr. Marvin Coats MD Other Provider Active Start : April 06, 2024 Dr. Dimas Alvarenga MD Other Provider Active Start: April 06, 2024 Dr. Kashif Berg MD Other Provider Active Start : April 06, 2024 Dr. Elizabeth Wilson MD Other Provider Active Star t: April 06, 2024 Dr. Aric Leon MD Other Provider Active Sta rt: April 06, 2024 Dr. Ashanti Dugan MD Other Provider Active Sta rt: April 06, 2024 Dr. Mitch Pinzon MD Other Provider Active Star t: April 06, 2024 Dr. Rajeev Dalton MD Other Provider Active St art: April 06, 2024 Dr. Roberto Escalante MD Other Provider Active Star t: April 06, 2024 Dr. Nikolai Keller DO Other Provider Active St art: April 06, 2024 Dr. Leyda Fischer MD Other Provider Active Start: April 06, 2024 Dr. Yolie Zapata MD Other Provider Active St art: April 06, 2024 Dr. Dao Avila DO Other Provider Active Start: April 06, 2024 Dr. Madi Tavarez MD Other Provider Active Star t: April 06, 2024 Dr. Zhang Concepcion MD Other Provider Active Sta rt: April 06, 2024 Dr. Huang Lazcano MD Referring Provider Active Start: April 06, 2024 Dr. Huang Lazcano MD Other Provider Active Start: April 06, 2024 Team Status: Active Member Role Status Dates Dr. Donna Will MD Primary Care Provider Active Start: April 06, 2024 Dr. Malachi Paredes DO Emergency Provider Active Start : April 06, 2024 Dr. Jordan Mendoza DO Admit Provider Active Start: April 06, 2024 Dr. Jordan Mendoza DO Other Provider Active Start: April 06, 2024 Dr. Isaias Granados MD Other Provider Active Start: April 06, 2024 Dr. Cisco Cortés MD Other Provider Active Start: April 06, 2024 Dr. Alexi Roblero MD Other Provider Active Star t: April 06, 2024 Dr. Anthony Singleton DO Other Provider Active Start : April 06, 2024 Dr. Jordan Alonzo MD Other Provider Active Sta rt: April 06, 2024 Dr. Meet Mckeon MD Other Provider Active St art: April 06, 2024 Dr. Carlito Cárdenas MD Other Provider Active S tart: April 06, 2024 Dr. Claudine Andrade MD Other Provider Active Start: April 06, 2024 Dr. Marvin Coats MD Other Provider Active Start : April 06, 2024 Dr. Dimas Alvarenga MD Other Provider Active Start: April 06, 2024 Dr. Kashif Berg MD Other Provider Active Start : April 06, 2024 Dr. Elizabeth Wilson MD Other Provider Active Star t: April 06, 2024 Dr. Aric Leon MD Other Provider Active Sta rt: April 06, 2024 Dr. Ashanti Dugan MD Other Provider Active Sta rt: April 06, 2024 Dr. Mitch Pinzon MD Other Provider Active Star t: April 06, 2024 Dr. Rajeev Dalton MD Other Provider Active St art: April 06, 2024 Dr. Roberto Escalante MD Other Provider Active Star t: April 06, 2024 Dr. Nikolai Keller DO Other Provider Active St art: April 06, 2024 Dr. Leyda Fischer MD Other Provider Active Start: April 06, 2024 Dr. Yolie Zapata MD Other Provider Active St art: April 06, 2024 Dr. Dao Avila DO Other Provider Active Start: April 06, 2024 Dr. Madi Tavarez MD Other Provider Active Star t: April 06, 2024 Dr. Zhang Concepcion MD Other Provider Active Sta rt: April 06, 2024 Dr. Huang Lazcano MD Attending Provider Active Start: April 06, 2024 Dr. Huang Lazcano MD Other Provider Active Start: April 06, 2024 Team Status: Active Member Role Status Dates Dr. Donna Will MD Primary Care Provider Active Start: April 06, 2024 Dr. Malachi Paredes DO Emergency Provider Active Start : April 06, 2024 Dr. Jordan Mendoza DO Admit Provider Active Start: April 06, 2024 Dr. Jordan Mendoza DO Other Provider Active Start: April 06, 2024 Dr. Isaias Granados MD Other Provider Active Start: April 06, 2024 Dr. Cisco Cortés MD Other Provider Active Start: April 06, 2024 Dr. Alexi Roblero MD Other Provider Active Star t: April 06, 2024 Dr. Anthony Singleton DO Other Provider Active Start : April 06, 2024 Dr. Jordan Alonzo MD Other Provider Active Sta rt: April 06, 2024 Dr. Meet Mckeon MD Other Provider Active St art: April 06, 2024 Dr. Carlito Cárdenas MD Other Provider Active S tart: April 06, 2024 Dr. Claudine Andrade MD Other Provider Active Start: April 06, 2024 Dr. Marvin Coats MD Other Provider Active Start : April 06, 2024 Dr. Dimas Alvarenga MD Other Provider Active Start: April 06, 2024 Dr. Kashif Berg MD Other Provider Active Start : April 06, 2024 Dr. Elizabeth Wilson MD Other Provider Active Star t: April 06, 2024 Dr. Aric Leon MD Other Provider Active Sta rt: April 06, 2024 Dr. Ashanti Dugan MD Other Provider Active Sta rt: April 06, 2024 Dr. Mitch Pinzon MD Other Provider Active Star t: April 06, 2024 Dr. Rajeev Dalton MD Other Provider Active St art: April 06, 2024 Dr. Roberto Escalante MD Other Provider Active Star t: April 06, 2024 Dr. Nikolai Keller DO Other Provider Active St art: April 06, 2024 Dr. Leyda Fischer MD Other Provider Active Start: April 06, 2024 Dr. Yolie Zapata MD Other Provider Active St art: April 06, 2024 Dr. Dao Avila DO Other Provider Active Start: April 06, 2024 Dr. Madi Tavarez MD Other Provider Active Star t: April 06, 2024 Dr. Zhang Concepcion MD Other Provider Active Sta rt: April 06, 2024 Dr. Huang Lazcano MD Referring Provider Active Start: April 06, 2024 Dr. Huang Lazcano MD Other Provider Active Start: April 06, 2024 Dr. Khai Galeana DO Attending Provider Active Start: April 06, 2024 Team Status: Active Member Role Status Dates Dr. Donna Will MD Primary Care Provider Active Start: April 07, 2024 Dr. Malachi Paredes DO Emergency Provider Active Start : April 07, 2024 Dr. Jordan Mendoza DO Admit Provider Active Start: April 07, 2024 Dr. Joradn Mendoza DO Other Provider Active Start: April 07, 2024 Dr. Isaias Granados MD Other Provider Active Start: April 07, 2024 Dr. Cisco Cortés MD Other Provider Active Start: April 07, 2024 Dr. Alexi Roblero MD Other Provider Active Star t: April 07, 2024 Dr. Anthony Singleton DO Attending Provider Active S tart: April 07, 2024 Dr. Anthony Singleton DO Other Provider Active Start : April 07, 2024 Dr. Jordan Alonzo MD Other Provider Active Sta rt: April 07, 2024 Dr. Meet Mckeon MD Other Provider Active St art: April 07, 2024 Dr. Carlito Cárdenas MD Other Provider Active S tart: April 07, 2024 Dr. Claudine Andrade MD Other Provider Active Start: April 07, 2024 Dr. Marvin Coats MD Other Provider Active Start : April 07, 2024 Dr. Dimas Alvarenga MD Other Provider Active Start: April 07, 2024 Dr. Kashif Berg MD Other Provider Active Start : April 07, 2024 Dr. Elizabeth Wilson MD Other Provider Active Star t: April 07, 2024 Dr. Aric Leon MD Other Provider Active Sta rt: April 07, 2024 Dr. Ashanti Dugan MD Other Provider Active Sta rt: April 07, 2024 Dr. Mitch Pinzon MD Other Provider Active Star t: April 07, 2024 Dr. Rajeev Dalton MD Other Provider Active St art: April 07, 2024 Dr. Roberto Escalante MD Other Provider Active Star t: April 07, 2024 Dr. Nikolai Keller DO Other Provider Active St art: April 07, 2024 Dr. Leyda Fischer MD Other Provider Active Start: April 07, 2024 Dr. Yolie Zapata MD Other Provider Active St art: April 07, 2024 Dr. Dao Avila DO Other Provider Active Start: April 07, 2024 Dr. Madi Tavarez MD Other Provider Active Star t: April 07, 2024 Dr. Zhang Concepcion MD Other Provider Active Sta rt: April 07, 2024 Dr. Huang Lazcano MD Referring Provider Active Start: April 07, 2024 Dr. Huang Lazcano MD Other Provider Active Start: April 07, 2024 Team Status: Active Member Role Status Dates Dr. Donna Will MD Primary Care Provider Active Start: April 07, 2024 Dr. Malachi Paredes DO Emergency Provider Active Start : April 07, 2024 Dr. Jordan Mendoza DO Admit Provider Active Start: April 07, 2024 Dr. Jordan Mendoza DO Other Provider Active Start: April 07, 2024 Dr. Isaias Granados MD Other Provider Active Start: April 07, 2024 Dr. Cisco Cortés MD Other Provider Active Start: April 07, 2024 Dr. Alexi Roblero MD Other Provider Active Star t: April 07, 2024 Dr. Anthony Singleton DO Other Provider Active Start : April 07, 2024 Dr. Jordan Alonzo MD Other Provider Active Sta rt: April 07, 2024 Dr. Meet Mckeon MD Other Provider Active St art: April 07, 2024 Dr. Carlito Cárdenas MD Other Provider Active S tart: April 07, 2024 Dr. Claudine Andrade MD Other Provider Active Start: April 07, 2024 Dr. Marvin Coats MD Other Provider Active Start : April 07, 2024 Dr. Dimas Alvarenga MD Other Provider Active Start: April 07, 2024 Dr. Kashif Berg MD Other Provider Active Start : April 07, 2024 Dr. Elizabeth Wilson MD Other Provider Active Star t: April 07, 2024 Dr. Aric Leon MD Other Provider Active Sta rt: April 07, 2024 Dr. Ashanti Dugan MD Other Provider Active Sta rt: April 07, 2024 Dr. Mitch Pinzon MD Other Provider Active Star t: April 07, 2024 Dr. Rajeev Dalton MD Other Provider Active St art: April 07, 2024 Dr. Roberto Escalante MD Other Provider Active Star t: April 07, 2024 Dr. Nikolai Keller , Other Provider Active St art: April 07, 2024 Dr. Leyda Fischer MD Other Provider Active Start: April 07, 2024 Dr. Yolie Zapata MD Other Provider Active St art: April 07, 2024 Dr. Dao Avila , Other Provider Active Start: April 07, 2024 Dr. Madi Tavarez MD Other Provider Active Star t: April 07, 2024 Dr. Zhang Concepcion MD Other Provider Active Sta rt: April 07, 2024 Dr. Huang Lazcano MD Attending Provider Active Start: April 07, 2024 Dr. Huang Lazcano MD Other Provider Active Start: April 07, 2024 Team Status: Active Member Role Status Dates Dr. Donna Will MD Primary Care Provider Active Start: April 07, 2024 Dr. Malachi Paredes DO Emergency Provider Active Start : April 07, 2024 Dr. Jordan Mendoza DO Admit Provider Active Start: April 07, 2024 Dr. Jordan Mendoza DO Other Provider Active Start: April 07, 2024 Dr. Isaias Granados MD Other Provider Active Start: April 07, 2024 Dr. Cisco Cortés MD Other Provider Active Start: April 07, 2024 Dr. Alexi Roblero MD Other Provider Active Star t: April 07, 2024 Dr. Anthony Singleton DO Other Provider Active Start : April 07, 2024 Dr. Jordan Alonzo MD Other Provider Active Sta rt: April 07, 2024 Dr. Meet Mckeon MD Other Provider Active St art: April 07, 2024 Dr. Carlito Cárdenas MD Other Provider Active S tart: April 07, 2024 Dr. Claudine Andrade MD Other Provider Active Start: April 07, 2024 Dr. Marvin Coats MD Other Provider Active Start : April 07, 2024 Dr. Dimas Alvarenga MD Other Provider Active Start: April 07, 2024 Dr. Kashif Berg MD Other Provider Active Start : April 07, 2024 Dr. Elizabeth Wilson MD Other Provider Active Star t: April 07, 2024 Dr. Aric Leon MD Other Provider Active Sta rt: April 07, 2024 Dr. Ashanti Dugan MD Other Provider Active Sta rt: April 07, 2024 Dr. Mitch Pinzon MD Other Provider Active Star t: April 07, 2024 Dr. Rajeev Dalton MD Other Provider Active St art: April 07, 2024 Dr. Roberto Escalante MD Other Provider Active Star t: April 07, 2024 Dr. Nikolai Keller DO Other Provider Active St art: April 07, 2024 Dr. Leyda Fischer MD Other Provider Active Start: April 07, 2024 Dr. Yolie Zapata MD Other Provider Active St art: April 07, 2024 Dr. Dao Avila DO Other Provider Active Start: April 07, 2024 Dr. Madi Tavarez MD Other Provider Active Star t: April 07, 2024 Dr. Zhang Concepcion MD Other Provider Active Sta rt: April 07, 2024 Dr. Huang Lazcano MD Referring Provider Active Start: April 07, 2024 Dr. Huang Lazcano MD Other Provider Active Start: April 07, 2024 Dr. Khai Galeana DO Attending Provider Active Start: April 07, 2024 Team Status: Active Member Role Status Dates Dr. Donna Will MD Primary Care Provider Active Start: April 08, 2024 Dr. Malachi Paredes DO Emergency Provider Active Start : April 08, 2024 Dr. Jordan Mendoza DO Admit Provider Active Start: April 08, 2024 Dr. Jordan Mendoza DO Other Provider Active Start: April 08, 2024 Dr. Isaias Granados MD Other Provider Active Start: April 08, 2024 Dr. Cisco Cortés MD Other Provider Active Start: April 08, 2024 Dr. Alexi Roblero MD Other Provider Active Star t: April 08, 2024 Dr. Anthony Singleton DO Other Provider Active Start : April 08, 2024 Dr. Jordan Alonzo MD Other Provider Active Sta rt: April 08, 2024 Dr. Meet Mckeon MD Other Provider Active St art: April 08, 2024 Dr. Carlito Cárdenas MD Other Provider Active S tart: April 08, 2024 Dr. Claudine Andrade MD Other Provider Active Start: April 08, 2024 Dr. Marvin Coats MD Other Provider Active Start : April 08, 2024 Dr. Dimas Alvarenga MD Other Provider Active Start: April 08, 2024 Dr. Kashif Berg MD Other Provider Active Start : April 08, 2024 Dr. Elizabeth Wilson MD Other Provider Active Star t: April 08, 2024 Dr. Aric Leon MD Other Provider Active Sta rt: April 08, 2024 Dr. Ashanti Dugan MD Other Provider Active Sta rt: April 08, 2024 Dr. Mitch Pinzon MD Other Provider Active Star t: April 08, 2024 Dr. Rajeev Dalton MD Other Provider Active St art: April 08, 2024 Dr. Roberto Escalante MD Other Provider Active Star t: April 08, 2024 Dr. Nikolai Keller DO Other Provider Active St art: April 08, 2024 Dr. Leyda Fischer MD Other Provider Active Start: April 08, 2024 Dr. Yolie Zapata MD Other Provider Active St art: April 08, 2024 Dr. Dao Avila DO Other Provider Active Start: April 08, 2024 Dr. Madi Tavarez MD Other Provider Active Star t: April 08, 2024 Dr. Zhang Concepcion MD Other Provider Active Sta rt: April 08, 2024 Dr. Huang Lazcano MD Attending Provider Active Start: April 08, 2024 Dr. Huang Lazcano MD Other Provider Active Start: April 08, 2024 Team Status: Inactive Member Role Status Dates Dr. Donna Will MD Primary Care Provider Active Start: April 22, 2024 End: April 22, 2024 Dr. Donna Will MD Referring Provider Active Start: April 22, 2024 End: April 22, 2024 Dr. Khai Galeana DO Attending Provider Active Start: April 22, 2024 End: April 22, 2024 Team Status: Inactive Member Role Status Dates Dr. Donna Will MD Primary Care Provider Active Start: April 27, 2024 End: April 27, 2024 Dr. Donna Will MD Referring Provider Active Start: April 27, 2024 End: April 27, 2024 Martha Dodson NP, [employer]-C Attending Provider Active Start: April 27, 2024 End: April 27, 2024 Team Status: Inactive Member Role Status Dates Dr. Donna Will MD Primary Care Provider Active Start: May 18, 2024 End: May 18, 2024 Dr. Donna Will MD Referring Provider Active Start: May 18, 2024 End: May 18, 2024 Gris Naik NP-C Attending Provider Active Start: May 18, 2024 End: May 18, 2024 Team Status: Active Member Role Status Dates DANNIELLE PIÑA NP-C Primary Care Provider Active Start: May 27, 2024 Dr. Tobi Zapata MD Attending Provider Active S tart: May 27, 2024 Dr. Tobi Zapata MD Referring Provider Active S tart: May 27, 2024 Team Status: Inactive Member Role Status Dates Dr. Donna Will MD Primary Care Provider Active Start: June 20, 2024 End: June 25, 2024 Dr. Eva Marie DO Emergency Provider Active Start: June 20, 2024 End: June 25, 2024 Dr. Mable Pritchard MD Admit Provider Active Star t: June 20, 2024 End: June 25, 2024 Dr. Mable Pritchard MD Other Provider Active Star t: June 20, 2024 End: June 25, 2024 Dr. Jordan Ortiz MD Attending Provider Active Start: June 20, 2024 End: June 25, 2024 Dr. Wilberto Villafuerte MD Other Provider Active Start: June 20, 2024 End: June 25, 2024 Team Status: Active Member Role Status Dates Dr. Donna Will MD Primary Care Provider Active Start: June 21, 2024 Dr. Eva Marie DO Emergency Provider Active Start: June 21, 2024 Dr. Mable Pritchard MD Admit Provider Active Star t: June 21, 2024 Dr. Mable Pritchard MD Other Provider Active Star t: June 21, 2024 Dr. Isaias Granados MD Other Provider Active Start: June 21, 2024 Dr. Cisco Cortés MD Other Provider Active Start: June 21, 2024 Dr. Alexi Roblero MD Other Provider Active Star t: June 21, 2024 Dr. Anthony Singleton , Other Provider Active Start : June 21, 2024 Dr. Jordan Alonzo MD Other Provider Active Sta rt: June 21, 2024 Dr. Meet Mckeon MD Other Provider Active St art: June 21, 2024 Dr. Carlito Cárdenas MD Other Provider Active S tart: June 21, 2024 Dr. Claudine Andrade MD Other Provider Active Start: June 21, 2024 Dr. Marvin Coats MD Other Provider Active Start : June 21, 2024 Dr. Dimas Alvarenga MD Other Provider Active Start: June 21, 2024 Dr. Kashif eBrg MD Other Provider Active Start : June 21, 2024 Dr. Elizabeth Wilson MD Other Provider Active Star t: June 21, 2024 Dr. Aric Leon MD Other Provider Active Sta rt: June 21, 2024 Dr. Ashanti Dugan MD Other Provider Active Sta rt: June 21, 2024 Dr. Mitch Pinzon MD Other Provider Active Star t: June 21, 2024 Dr. Rajeev Dalton MD Other Provider Active St art: June 21, 2024 Dr. Roberto Escalante MD Other Provider Active Star t: June 21, 2024 Dr. Nikolai Keller DO Other Provider Active St art: June 21, 2024 Dr. Leyda Fischer MD Other Provider Active Start: June 21, 2024 Dr. Yolie Zapata MD Other Provider Active St art: June 21, 2024 Dr. Dao Avila DO Other Provider Active Start: June 21, 2024 Dr. Madi Tavarez MD Other Provider Active Star t: June 21, 2024 Dr. Zhang Concepcion MD Other Provider Active Sta rt: June 21, 2024 Dr. Jordan Ortiz MD Attending Provider Active Start: June 21, 2024 Dr. Jordan Ortiz MD Other Provider Active Star t: June 21, 2024 Team Status: Active Member Role Status Dates Dr. Donna Will MD Primary Care Provider Active Start: June 21, 2024 Dr. Eva Marie DO Emergency Provider Active Start: June 21, 2024 Dr. Mable Pritchard MD Admit Provider Active Star t: June 21, 2024 Dr. Mable Pritchard MD Other Provider Active Star t: June 21, 2024 Dr. Jordan Ortiz MD Referring Provider Active Start: June 21, 2024 Dr. Jordan Ortiz MD Other Provider Active Star t: June 21, 2024 Dr. Isaias Granados MD Other Provider Active Start: June 21, 2024 Dr. Cisco Cortés MD Other Provider Active Start: June 21, 2024 Dr. Alexi Roblero MD Other Provider Active Star t: June 21, 2024 Dr. Anthony Singleton , Attending Provider Active S tart: June 21, 2024 Dr. Anthony Singleton DO Other Provider Active Start : June 21, 2024 Dr. Jordan Alonzo MD Other Provider Active Sta rt: June 21, 2024 Dr. Meet Mckeon MD Other Provider Active St art: June 21, 2024 Dr. Carlito Cárdenas MD Other Provider Active S tart: June 21, 2024 Dr. Claudine Andrade MD Other Provider Active Start: June 21, 2024 Dr. Marvin Coats MD Other Provider Active Start : June 21, 2024 Dr. Dimas Alvarenga MD Other Provider Active Start: June 21, 2024 Dr. Kashif Berg MD Other Provider Active Start : June 21, 2024 Dr. Elizabeth Wilson MD Other Provider Active Star t: June 21, 2024 Dr. Aric Leon MD Other Provider Active Sta rt: June 21, 2024 Dr. Ashanti Dugan MD Other Provider Active Sta rt: June 21, 2024 Dr. Mitch Pinzon MD Other Provider Active Star t: June 21, 2024 Dr. Rajeev Dalton MD Other Provider Active St art: June 21, 2024 Dr. Roberto Escalante MD Other Provider Active Star t: June 21, 2024 Dr. Nikolai Keller DO Other Provider Active St art: June 21, 2024 Dr. Leyda Fischer MD Other Provider Active Start: June 21, 2024 Dr. Yolie Zapata MD Other Provider Active St art: June 21, 2024 Dr. Dao Avila DO Other Provider Active Start: June 21, 2024 Dr. Madi Tavarez MD Other Provider Active Star t: June 21, 2024 Dr. Zhang Concepcion MD Other Provider Active Sta rt: June 21, 2024 Team Status: Active Member Role Status Dates Dr. Donna Will MD Primary Care Provider Active Start: June 21, 2024 Dr. Marco Dang MD Attending Provider Active S tart: June 21, 2024 Team Status: Active Member Role Status Dates Dr. Donna Will MD Primary Care Provider Active Start: June 22, 2024 Dr. Eva Marie DO Emergency Provider Active Start: June 22, 2024 Dr. Mable Pritchard MD Admit Provider Active Star t: June 22, 2024 Dr. Mable Pritchard MD Other Provider Active Star t: June 22, 2024 Dr. Jordan Ortiz MD Referring Provider Active Start: June 22, 2024 Dr. Jordan Ortiz MD Other Provider Active Star t: June 22, 2024 Dr. Isaias Granados MD Other Provider Active Start: June 22, 2024 Dr. Cisco Cortés MD Other Provider Active Start: June 22, 2024 Dr. Alexi Roblero MD Other Provider Active Star t: June 22, 2024 Dr. Anthony Singleton DO Attending Provider Active S tart: June 22, 2024 Dr. Anthony Singleton DO Other Provider Active Start : June 22, 2024 Dr. Jordan Alonzo MD Other Provider Active Sta rt: June 22, 2024 Dr. Meet Mckeon MD Other Provider Active St art: June 22, 2024 Dr. Carlito Cárdenas MD Other Provider Active S tart: June 22, 2024 Dr. Claudine Andrade MD Other Provider Active Start: June 22, 2024 Dr. Marvin Coats MD Other Provider Active Start : June 22, 2024 Dr. Dimas Alvarenga MD Other Provider Active Start: June 22, 2024 Dr. Kashif Berg MD Other Provider Active Start : June 22, 2024 Dr. Elizabeth Wilson MD Other Provider Active Star t: June 22, 2024 Dr. Aric Leon MD Other Provider Active Sta rt: June 22, 2024 Dr. Ashanti Dugan MD Other Provider Active Sta rt: June 22, 2024 Dr. Mitch Pinzon MD Other Provider Active Star t: June 22, 2024 Dr. Rajeev Dalton MD Other Provider Active St art: June 22, 2024 Dr. Roberto Escalante MD Other Provider Active Star t: June 22, 2024 Dr. Nikolai Keller DO Other Provider Active St art: June 22, 2024 Dr. Leyda Fischer MD Other Provider Active Start: June 22, 2024 Dr. Yolie Zapata MD Other Provider Active St art: June 22, 2024 Dr. Dao Avila DO Other Provider Active Start: June 22, 2024 Dr. Madi Tavarez MD Other Provider Active Star t: June 22, 2024 Dr. Zhang Concepcion MD Other Provider Active Sta rt: June 22, 2024 Dr. Wilberto Villafuerte MD Other Provider Active Start: June 22, 2024 Team Status: Active Member Role Status Dates Dr. Donna Will MD Primary Care Provider Active Start: June 22, 2024 Dr. Eva Marie , Emergency Provider Active Start: June 22, 2024 Dr. Mable Pritchard MD Admit Provider Active Star t: June 22, 2024 Dr. Mable Pritchard MD Other Provider Active Star t: June 22, 2024 Dr. Jordan Ortiz MD Attending Provider Active Start: June 22, 2024 Dr. Jordan Ortiz MD Other Provider Active Star t: June 22, 2024 Dr. Isaias Granados MD Other Provider Active Start: June 22, 2024 Dr. Cisco Cortés MD Other Provider Active Start: June 22, 2024 Dr. Alexi Roblero MD Other Provider Active Star t: June 22, 2024 Dr. Anthony Singleton DO Other Provider Active Start : June 22, 2024 Dr. Jordan Alonzo MD Other Provider Active Sta rt: June 22, 2024 Dr. Meet Mckeon MD Other Provider Active St art: June 22, 2024 Dr. Carlito Cárdenas MD Other Provider Active S tart: June 22, 2024 Dr. Claudine Andrade MD Other Provider Active Start: June 22, 2024 Dr. Marvin Coats MD Other Provider Active Start : June 22, 2024 Dr. Dimas Alvarenga MD Other Provider Active Start: June 22, 2024 Dr. Kashif Berg MD Other Provider Active Start : June 22, 2024 Dr. Elizabeth Wilson MD Other Provider Active Star t: June 22, 2024 Dr. Aric Leon MD Other Provider Active Sta rt: June 22, 2024 Dr. Ashanti Dugan MD Other Provider Active Sta rt: June 22, 2024 Dr. Mitch Pinzon MD Other Provider Active Star t: June 22, 2024 Dr. Rajeev Dalton MD Other Provider Active St art: June 22, 2024 Dr. Roberto Escalante MD Other Provider Active Star t: June 22, 2024 Dr. Nikolai Keller DO Other Provider Active St art: June 22, 2024 Dr. Leyda Fischer MD Other Provider Active Start: June 22, 2024 Dr. Yolie Zapata MD Other Provider Active St art: June 22, 2024 Dr. Dao Avila DO Other Provider Active Start: June 22, 2024 Dr. Madi Tavarez MD Other Provider Active Star t: June 22, 2024 Dr. Zhang Concepcion MD Other Provider Active Sta rt: June 22, 2024 Dr. Wilberto Villafuerte MD Other Provider Active Start: June 22, 2024 Team Status: Active Member Role Status Dates Dr. Donna Will MD Primary Care Provider Active Start: June 22, 2024 Dr. Chicho Carson MD Attending Provider Activ e Start: June 22, 2024 Team Status: Active Member Role Status Dates Dr. Donna Will MD Primary Care Provider Active Start: June 23, 2024 Dr. Eva Marie DO Emergency Provider Active Start: June 23, 2024 Dr. Mable Pritchard MD Admit Provider Active Star t: June 23, 2024 Dr. Mable Pritchard MD Other Provider Active Star t: June 23, 2024 Dr. Jordan Ortiz MD Referring Provider Active Start: June 23, 2024 Dr. Jordan Ortiz MD Other Provider Active Star t: June 23, 2024 Dr. Wilberto Villafuerte MD Other Provider Active Start: June 23, 2024 Dr. Anthony Singleton DO Attending Provider Active S tart: June 23, 2024 Team Status: Active Member Role Status Dates Dr. Donna Will MD Primary Care Provider Active Start: June 23, 2024 Dr. Eva Marie DO Emergency Provider Active Start: June 23, 2024 Dr. Mable Pritchard MD Admit Provider Active Star t: June 23, 2024 Dr. Mable Pritchard MD Other Provider Active Star t: June 23, 2024 Dr. Jordan Ortiz MD Attending Provider Active Start: June 23, 2024 Dr. Jordan Ortiz MD Other Provider Active Star t: June 23, 2024 Dr. Wilberto Villafuerte MD Other Provider Active Start: June 23, 2024 Team Status: Active Member Role Status Dates Dr. Donna Will MD Primary Care Provider Active Start: June 24, 2024 Dr. Eva Marie DO Emergency Provider Active Start: June 24, 2024 Dr. Mable Pritchard MD Admit Provider Active Star t: June 24, 2024 Dr. Mable Pritchard MD Other Provider Active Star t: June 24, 2024 Dr. Jordan Ortiz MD Attending Provider Active Start: June 24, 2024 Dr. Jordan Ortiz MD Other Provider Active Star t: June 24, 2024 Dr. Wilberto Villafuerte MD Other Provider Active Start: June 24, 2024 Team Status: Active Member Role Status Dates Dr. Donna Will MD Primary Care Provider Active Start: June 25, 2024 Dr. Eva Marie DO Emergency Provider Active Start: June 25, 2024 Dr. Mable Pritchard MD Admit Provider Active Star t: June 25, 2024 Dr. Mable Pritchard MD Other Provider Active Star t: June 25, 2024 Dr. Jordan Ortiz MD Attending Provider Active Start: June 25, 2024 Dr. Jordan Ortiz MD Other Provider Active Star t: June 25, 2024 Dr. Wilberto Villafuerte MD Other Provider Active Start: June 25, 2024 Team Status: Active Member Role Status Dates Dr. Donna Will MD Primary Care Provider Active Start: June 28, 2024 Dr. Wilberto Villafuerte MD Attending Provider Active Start: June 28, 2024 Dr. Wilberto Villafuerte MD Referring Provider Active Start: June 28, 2024 Team Status: Inactive Member Role Status Dates Dr. Donna Will MD Primary Care Provider Active Start: June 29, 2024 End: June 29, 2024 Dr. Wilberto Villafuerte MD Attending Provider Active Start: June 29, 2024 End: June 29, 2024 Dr. Wilberto Villafuerte MD Referring Provider Active Start: June 29, 2024 End: June 29, 2024 Team Status: Active Member Role Status Dates Dr. Donna Will MD Primary Care Provider Active Start: June 21, 2024 Dr. Marco Dang MD Attending Provider Active S tart: June 21, 2024 Dr. Mable Pritchard MD Referring Provider Active Start: June 21, 2024 Team Status: Inactive Member Role Status Dates Dr. Donna Will MD Primary Care Provider Active Start: June 30, 2024 End: June 30, 2024 Dr. Donna Will MD Attending Provider Active Start: June 30, 2024 End: June 30, 2024 Team Status: Active Member Role Status Dates Dr. Donna Will MD Primary Care Provider Active Start: July 05, 2024 Dr. Wilberto Villafuerte MD Attending Provider Active Start: July 05, 2024 Dr. Wilberto Villafuerte MD Referring Provider Active Start: July 05, 2024 Team Status: Inactive Member Role Status Dates Dr. Donna Will MD Primary Care Provider Active Start: July 08, 2024 End: July 08, 2024 Dr. Marco Hoffman DO Emergency Provider Active Start: July 08, 2024 End: July 08, 2024 Team Status: Inactive Member Role Status Dates Dr. Donna Will MD Primary Care Provider Active Start: July 05, 2024 End: July 05, 2024 Dr. Wilberto Villafuerte MD Attending Provider Active Start: July 05, 2024 End: July 05, 2024 Dr. Wilberto Villafuerte MD Referring Provider Active Start: July 05, 2024 End: July 05, 2024 Team Status: Inactive Member Role Status Dates Dr. Donna Will MD Primary Care Provider Active Start: July 08, 2024 End: July 08, 2024 Dr. Marco Hoffman DO Attending Provider Active Start: July 08, 2024 End: July 08, 2024 Dr. Marco Hoffman DO Emergency Provider Active Start: July 08, 2024 End: July 08, 2024 Team Status: Active Member Role Status Dates Dr. Donna Will MD Primary Care Provider Active Start: July 12, 2024 Gris Naik NP-C Attending Provider Active Start: July 12, 2024 Gris Naik NP-C Referring Provider Active Start: July 12, 2024 Team Status: Inactive Member Role Status Dates Dr. Donna Will MD Primary Care Provider Active Start: July 12, 2024 End: July 12, 2024 Gris Naik NP-C Attending Provider Active Start: July 12, 2024 End: July 12, 2024 Gris Naik NP-C Referring Provider Active Start: July 12, 2024 End: July 12, 2024 Team Status: Active Member Role Status Dates Dr. Donna Will MD Primary Care Provider Active Start: July 14, 2024 Dr. Wilberto Villafuerte MD Attending Provider Active Start: July 14, 2024 Dr. Wilberto Villafuerte MD Referring Provider Active Start: July 14, 2024 Team Status: Active Member Role Status Dates DANNIELLE PIÑA BOX FEEDER-C Primary Care Provider Active Start: July 20, 2024 Dr. Tobi Zapata MD Attending Provider Active S tart: July 20, 2024 Dr. Tobi Zapata MD Referring Provider Active S tart: July 20, 2024 Team Status: Inactive Member Role Status Dates Dr. Donna Will MD Primary Care Provider Active Start: July 20, 2024 End: July 20, 2024 Dr. Donna Will MD Referring Provider Active Start: July 20, 2024 End: July 20, 2024 Dr. Tobi Zapata MD Attending Provider Active S tart: July 20, 2024 End: July 20, 2024 Team Status: Inactive Member Role Status Dates Dr. Donna Will MD Primary Care Provider Active Start: July 14, 2024 End: July 14, 2024 Dr. Wilberto Villafuerte MD Attending Provider Active Start: July 14, 2024 End: July 14, 2024 Dr. Wilberto Villauferte MD Referring Provider Active Start: July 14, 2024 End: July 14, 2024 Team Status: Active Member Role Status Dates Dr. Donna Will MD Primary Care Provider Active Start: July 21, 2024 Dr. Wilberto Villafuerte MD Attending Provider Active Start: July 21, 2024 Team Status: Active Member Role Status Dates Dr. Donna Will MD Primary Care Provider Active Start: July 23, 2024 Dr. Tobi Zapata MD Attending Provider Active S tart: July 23, 2024 Dr. Tobi Zapata MD Referring Provider Active S tart: July 23, 2024 Team Status: Inactive Member Role Status Dates Dr. Donna Will MD Primary Care Provider Active Start: July 21, 2024 End: July 21, 2024 Dr. Wilberto Villafuerte MD Attending Provider Active Start: July 21, 2024 End: July 21, 2024 Team Status: Inactive Member Role Status Dates Dr. Donna Will MD Primary Care Provider Active Start: July 23, 2024 End: July 23, 2024 Dr. Tobi Zapata MD Attending Provider Active S tart: July 23, 2024 End: July 23, 2024 Dr. Tobi Zapata MD Referring Provider Active S tart: July 23, 2024 End: July 23, 2024 Team Status: Active Member Role Status Dates SORIN MCKENZIE Primary Care Provider Active Start: July 27, 2024 Dr. Tobi Zapata MD Attending Provider Active S tart: July 27, 2024 Dr. Tobi Zapata MD Referring Provider Active S tart: July 27, 2024 Reason for Visit (unrecogniz ed section and [...] BE BASED ON THE PRIMARY CLINICAL RECORDS. [facility]. provides no warranty or guarantee of the accuracy or completeness of information in this document.
[2024-08-21 11:32] LABS: AST(SGOT) 29 U/L (<=37); Alanine Aminotransfer ALT/SGPT 19 U/L (<=46); Albumin, Serum 3.5 g/dL (3.4-4.8); Alkaline Phosphatase 71 U/L (40-129); Anion Gap 11 (5-15); BUN 21 mg/dL (4-19); BUN/Creat Ratio 16.6 RATIO (10-20); Calcium,Total 8.2 mg/dL (7.6-11.0); Carbon Dioxide 29.3 mmol/L (21.0-32.0); Chloride 105 mmol/L (98-108); Estimated Creatinine Clearance 62.12 ml/min (50-250); Globulin 2.7 g/dL (2.2-4.2); Glucose 150 mg/dL (70-99); Potassium 4.5 mmol/L (3.3-5.1); Pro- Brain NATRIURETIC PEPTIDE 11167 pg/mL (<=900); Troponin T High Sensitivity 97 ng/L (<=22)
--- NOTE | 2024-08-21 12:03 | ED.RN ---
THIs RN confirmed with Dr. Singh that he wanted full 500cc bolus and 125 solumedrol
[2024-08-21 12:16] LABS: Anisocytosis 1+; Polychromasia 1+
[2024-08-21 12:19] LABS: Allen Test Positive; Base Excess 16 mmol/L (-2 to +2); FI02 40.0; PEEP 9; PO2 69 mmHG (75-100); RR 14; SITE L Radial; SO2 94 % (95-99)
--- NOTE | 2024-08-21 12:23 | PCM.HP.STD ---
HPI - General General Date of Admission: 08/21/24 Date of Service: 08/21/24 Chief Complaint: Shortness of breath progressively worsening for last 2 days. History of heart failure and CHF HPI Narrative SAL ALONZO, is a 73 M with multiple comorbidities and recurrent admission came to ED for worsening shortness of breath for 2 days with cough, chest congestion, thick whitish phlegm but no fever. Today, after he woke up he was so short of breath/labored breathing that he could not walk therefore came to ED. At home he is only on 4 L of oxygen at rest and 5 L on exertion. Patient is stated he does not have any NIPPV/Trelegy/BiPAP. In ED, patient was was initially put on 4 L of oxygen was 88% and then it was increased but is still he was labored breathing therefore put on BiPAP. ABG was done subsequently. Patient has dose of Bumex 1 mg IV and Solu-Medrol 125 mg IV Patient is further being admitted in ICU. [facility] Medical History (Updated 08/21/24 @ 12:[address] Clive Sharp MD) MRSA (methicillin resistant staph aureus) culture positive Ischemic cardiomyopathy COVID-19 Lethargic COPD with acute exacerbation Elevated troponin I level LUIS (acute kidney injury) Hypoxemia Chronic kidney disease (CKD), stage III (moderate) Acute hypoxic on chronic hypercapnic respiratory failure FTT (failure to thrive) in adult Former smoker On home oxygen therapy Bleeding tendency Ulcer High cholesterol History of stress test HTN (hypertension) Tobacco abuse History of pulmonary embolus (PE) (04/30/21) Essential hypertension Type 2 diabetes mellitus DVT (deep venous thrombosis) (05/01/21) Rhinovirus Acute respiratory failure with hypoxia Physical debility COVID-19 in immunocompromised patient Nicotine dependence, cigarettes, uncomplicated Diabetes Arthritis Cancer COPD (chronic obstructive pulmonary disease) History of basal cell carcinoma Atherosclerosis of coronary artery of [place] heart without angina pectoris Pneumonia Non-Hodgkin lymphoma History of pilonidal cyst Allergic rhinitis 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 complications Gastritis Colon polyp Obesity Asthma Chronic bronchitis Positive colorectal cancer screening using Cologuard test RA (rheumatoid arthritis) Home Medications ?Medication ?Instructions ?Recorded ?Last Taken ?Type finasteride 5 mg tablet 5 mg PO DAILY prostate 08/14/22 07/07/24 History tamsulosin 0.4 mg capsule 0.4 mg PO QHS prostate 08/14/22 07/07/24 History multivitamin 1 tab PO DAILY vitamin 09/13/22 07/07/24 History atorvastatin 40 mg tablet 20 mg (1/2 x 40 mg) PO QHS 09/18/23 07/07/24 Rx cholesterol #90 tabs budesonide 1 mg/2 mL suspension 1 mg (2 mL) inhalation Q12H 09/19/23 07/07/24 Rx for nebulization wheezing/SOB #120 mL ipratropium 0.5 mg-albuterol 3 mg 3 ml inhalation Q4H PRN PRN SOB 09/19/23 07/07/24 Rx (2.5 mg base)/3 mL nebulization &/OR WHEEZING #270 mL soln escitalopram oxalate 10 mg tablet 10 mg PO DAILY mood 90 days #90 10/29/23 07/07/24 Rx tabs mirtazapine 15 mg tablet (Remeron) 7.5 mg (1/2 x 15 mg) PO QHS sleep 10/29/23 07/07/24 Rx #90 tabs insulin aspart U-100 100 unit/mL See Protocol subcut ACHS high 11/12/23 07/07/24 Rx (3 mL) subcutaneous pen blood glucose 1 month #15 mL needle (disp) 32 gauge 32 gauge x #100 ea 11/12/23 Unknown Rx 5/16 (Easy Touch Hypodermic Needle) pen needle, diabetic 32 gauge x #100 ea 12/03/23 Unknown Rx 5/32 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 sensor (FreeStyle #1 ea 12/24/23 Unknown Rx Basilio 3 Sensor device) 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,mobile lab technician,cont #1 ea 12/24/23 Unknown Rx (FreeStyle Basilio 3 [place]) furosemide 40 mg tablet (Lasix) 20 mg (1/2 x 40 mg) PO DAILY 03/08/24 07/07/24 Rx diuretic #60 tabs empagliflozin 10 mg tablet 10 mg PO QDAY diabetes 03/16/24 07/07/24 History (Jardiance) ferrous sulfate 325 mg (65 mg 325 mg PO QODAY Supplement 04/05/24 07/07/24 History iron) tablet (FeroSul) insulin glargine-yfgn 100 unit/mL 20 unit (0.2 mL) subcut BIDCM high 06/25/24 07/08/24 Rx (3 mL) subcutaneous pen blood glucose #15 mL cholecalciferol (vitamin D3) 50 50 mcg PO QDAY 06/28/24 07/07/24 History mcg (2,000 unit) capsule pantoprazole 40 mg tablet,delayed 40 mg PO BID 06/28/24 07/07/24 History release (Protonix) carvedilol 3.125 mg tablet 3.125 mg PO BID BP #60 tabs 07/26/24 Unknown Rx Allergy/AdvReac Type Severity Reaction Status Date / Time No Known Allergies Allergy Verified 08/21/24 10:26 Family History Father Arthritis Bleeding disorder Hypertension Kidney disease Cancer Skin Anemia blood clots Emphysema lung Mother Colon cancer Cancer Lung Cancer Diabetes Brother Thyroid disorder Surgical History History of embolic filter insertion History of heart artery stent Status post cardiac surgery H/O cardiac catheterization Presence of IVC filter (04/2021) History of coronary artery stent placement (10/22/13) History of thymectomy Hx of lymph node excision History of excision of pilonidal cyst Social History household members: spouse Smoking Status: Current some day smoker tobacco type: cigarettes Tobacco: How many years used: 55 second hand exposure: Yes alcohol intake: current alcohol intake frequency: holidays/special occasions only substance use type: does not use caffeine: Yes Type: coffee Number of servings: 3 what type of physical activity do you participate in: none frequency: does not exercise seatbelt use: always ROS ROS Narrative Limited ROS because of being on BiPAP with labored breathing/respiratory distress Constitutional: Reports fatigue and weakness. No fever. HEENT: Chronic cough Respiratory/Chest: As described in HPI. CVS: Chest congestion. No chest pressure or pain Gastrointestinal: Denies coffee ground emesis, hematemesis or vomiting Genitourinary: Denies burning urination or new urinary tract symptoms Musculoskeletal: Denies acute joint pain or limited range of motion. No acute injury Neurologic: Denies seizure-like symptoms. skin: No ulcer. No rash Endocrinology: Reports systems reviewed and no addt'l complaints, except as documented Hematologic/Lymphatic: IVC filter. History of DVT. Reports systems reviewed and no addt'l complaints, except as documented Rest 14 ROS are negative except as mentioned in HPI Review of Systems ROS Unobtainable: other Details: Being on BiPAP, difficult to communicate Vital Signs Vital Signs Vital Signs: 08/21/24 10:26 08/21/24 10:51 08/21/24 10:52 Temperature 98.2 F Temperature Source Temporal Pulse Rate 81 Respiratory Rate 30 H Respiratory Effort Short of Breath Respiratory Depth Shallow Respiratory Pattern Tachypnea Blood Pressure 122/59 H Blood Pressure Mean 80 Pulse Ox 88 95 Oxygen Delivery Method Nasal Cannula Nasal Cannula Nasal Cannula Oxygen Flow Rate (L/min) 4 5 5 Fraction of Inspired Oxygen (FIO2) 08/21/24 10:52 08/21/24 11:31 08/21/24 12:00 Temperature 97.5 F L 97.5 F L Temperature Source Temporal Temporal Pulse Rate 64 69 Respiratory Rate 22 H 20 H Respiratory Effort Respiratory Depth Respiratory Pattern Blood Pressure 134/70 H 134/70 H Blood Pressure Mean 91 91 Pulse Ox 97 100 Oxygen Delivery Method Nasal Cannula Bi-pap Bi-pap Oxygen Flow Rate (L/min) 5 Fraction of Inspired Oxygen (FIO2) 92 08/21/24 12:00 08/21/24 12:13 Temperature 98.5 F Temperature Source Pulse Rate 67 64 Respiratory Rate 20 H 20 H Respiratory Effort Respiratory Depth Respiratory Pattern Normal Blood Pressure 127/62 H Blood Pressure Mean 83 Pulse Ox 95 95 Oxygen Delivery Method Oxygen Flow Rate (L/min) Fraction of Inspired Oxygen (FIO2) 40 Weight Weight: 225 lb 4.999 oz Body Mass Index (BMI) 31.4 Physical Exam Narrative General: Alert, Oriented x3, Cooperative. Obesity, grade 1 BMI 31.4 kg/m? HEENT: Atraumatic, PERRLA, EOMI, Normocephalic. Oral: On BiPAP Neck: Supple, Negative Carotid Bruits. JVD could not be evaluated because of being on BiPAP Chest wall/Lungs: Air entry severely diminished in both lung luu. Bilateral expiratory rhonchi. Cardiovascular: Regular rate and rhythm, Normal S1,S2, No M/G/R Abdomen: Bowel Sounds Present, Soft, Non Tender, Non-Distended : No dysuria. No renal angle tenderness. No suprapubic tenderness. Extremities: Bilateral 3+ thigh-high pitting edema, Capillary Refill Less than 3 Seconds Skin: No rashes, No breakdown Musculoskeletal: No Tenderness to Palpation of Joints or Extremities. ROM restricted at knees and hip joints Neurological: Cranial nerves II-XII grossly intact, DTR 2+/4. No acute focal neurological deficit. Psych/Mental Status: Normal Affect, Appropriate. Results Lab / Micro Data 08/21/24 10:45 08/21/24 10:45 Labs: Laboratory Results - last 24 hr 08/21/24 10:45: WBC 10.3, RBC 2.83 L, Hgb 8.7 L, Hct 28.8 L, MCV 101.8 H, MCH 30.7, MCHC 30.2 L, RDW Std Deviation 68.8 H, RDW Coeff of Rafael 18.4 H, Plt Count 226, MPV 11.3, Immature Gran % (Auto) 1.100 H, Neut % (Auto) 71.0 H, Lymph % (Auto) 15.2 L, Rusk % (Auto) 10.5 H, Eos % (Auto) 1.9, Baso % (Auto) 0.3, Absolute Neuts (auto) 7.3, Absolute Lymphs (auto) 1.57, Nucleated RBC % 0.4, Platelet Estimate A, Polychromasia 1+, Anisocytosis 1+, PT 14.1, INR 1.1, APTT 25.6, Sodium 145, Potassium 4.5, Chloride 105, Carbon Dioxide 29.3, Anion Gap 11, BUN 21 H, Creatinine 1.27 H, Estim Creat Clear Calc 62.12, Est GFR (MDRD) Non-Af 59 L, BUN/Creatinine Ratio 16.6, Glucose 150 H, Lactic Acid 1.3, Calcium 8.2, Total Bilirubin 0.49, AST 29, ALT 19, Alkaline Phosphatase 71, Troponin T High Sens 97 H*, [place] [address] H, Total Protein 6.2, Albumin 3.5, Globulin 2.7, Albumin/Globulin Ratio 1.3 08/21/24 11:28: Urine Color Cancelled, Urine Clarity Cancelled, Urine pH Cancelled, Ur Specific [place] Cancelled, U Specif Grav (Refrac) Cancelled, Urine Protein Cancelled, Urine Glucose (UA) Cancelled, Urine Ketones Cancelled, Urine Occult Blood Cancelled, Urine Nitrite Cancelled, Urine Bilirubin Cancelled, Urine Urobilinogen Cancelled, Ur Leukocyte Esterase Cancelled, Urine RBC Cancelled, Urine WBC Cancelled, Ur Squamous Epith Cells Cancelled, Ur Transition Epith Cell Cancelled, Ur Renal Epithelial Cell Cancelled, Calcium Oxalate Crystal Cancelled, Uric Acid Crystals Cancelled, Triple Phos Crystals Cancelled, Other Crystals Cancelled, Amorphous Sediment Cancelled, Urine Bacteria Cancelled, Hyaline Casts Cancelled, Fine Granular Casts Cancelled, Coarse Granular Casts Cancelled, Waxy Casts Cancelled, RBC Casts Cancelled, WBC Casts Cancelled, Urine Mucus Cancelled, Urine Trichomonas Cancelled, Urine Yeast Cancelled ABG Data ABG results: ABG 08/21/24 12:15 Specimen Type ART Sample Site L Radial pH 7.45 Bicarbonate Actual 39.9 H Total CO2 42 Base Excess 16 H O2 Saturation 94 L O2 % 40.0 ABG pCO2 58.0 H ABG pO2 69 L Thompson Test Positive Respiration Rate 14 O2 Delivery Device BiPAP Vent Mode Not entered POC PEEP 9 Imaging Radiology Impression Chest X-Ray 08/21/24 11:02 IMPRESSION: Worsened moderate right pleural effusion. Trace left base effusion. Superimposed focal consolidation not excluded within the right lower lobe. Klav-ms-[id number] pulmonary edema. Median sternotomy wires. Cardiac silhouette is unchanged. No pneumothorax. Reading Location: [facility] Assessment & Plan Assessment/Plan (1) Acute and chronic respiratory failure with hypercapnia: PLAN: Plan This is a 73-year-old gentleman being admitted for extreme shortness of breath/labored breathing and hypoxia and ABG suggestive of acute on chronic combined respiratory failure 1. Acute on chronic combined hypoxic and hypercarbic respiratory failure due to CHF exacerbation and mild COPD exacerbation: ABG 7.45/58/69 on 40% FiO2, 15/9, RR 14/min. Patient is on bicarb is about 29-30 therefore chronic mild CO2 retention. Continue BiPAP support. Regional Safety Manager consulted. 2. Acute on chronic HFrEF: proBNP is high 11,267, chest x-ray is reviewed and shows pulmonary congestion/central hilar congestion but no significant consolidation. Started on IV Bumex 2 mg every 8 hourly and titrate the dose as per urine output and hemodynamics. Heart failure core measures including intake and output, fluid restriction less than 1500 mL, daily weight monitoring, kidney and electrolytes monitoring. Previous echo on September 04, 2023 with EF 25%, mildly dilated LV, severe global hypokinesis, PASP 30 mmHg. 3. Mild COPD exacerbation with history of chronic smoking: Patient quit smoking about 2 months ago in June 2024. 55 pack years of smoking. Patient is being managed on scheduled bronchodilator, IV Solu-Medrol, Mucinex, incentive spirometry and Pep. Zithromax 500 mg IV 1 dose and then changed to oral for next 2 doses, total 3 doses for COPD exacerbation. Flu, COVID and RSV PCR ordered. Sputum culture ordered. 4. DM type II: Glucose is 150 mg/dL. A1c tomorrow a.m. On Lantus 20 units subcutaneous twice daily continue with hypoglycemia protocol. Accu-Chek before meals and at bedtime with Humalog sliding scale coverage and hypoglycemia protocol. 5. CKD stage IIIa: BUN/creatinine appears on the baseline /1.27. Previous./Creatinine 33/1.27 on June 2024 and fluctuates between 1.41-1.65. 6. 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 Bilateral leg swelling. Started on Lovenox 40 mL subcu daily with holding parameters given the patient has history of GI bleed found to have AVM on endoscopy. 7. History of GI bleed due to AVM and chronic GERD: Last EGD in March 2024 as mentioned below. Continue PPI twice daily. Impression: - Normal esophagus. - No gross lesions in the entire stomach. - Three bleeding angiodysplastic lesions in the duodenum. Treated with a heater probe. Clip was placed. 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 8. Chronic CAD status post stent: Continue home medications 9. Chronic BPH with obstruction -Continue home medications Flomax and finasteride 10. Depression/anxiety -Continue home medications 11. DVT prophylaxis: As mentioned above. With high risk of DVT/PE and high risk of bleeding, Lovenox continued with PPI with holding parameters if bleeding. Living will/advanced directive/end of life care: Patient does have living will or advanced directive. His power of trust vault custodian for healthcare his but also with son and granddaughter involved in decision making. After discussion of benefits/risks procedures involved with full code, DNR CC arrest and DNR CC, the patient opted for DNR CC arrest with no intubation Patient doesn't want artificial life support including intubation, tube feed, ventilator and/chest compression, central venous catheter, vasopressor and DC shock if needed Total time spent in [id number] encounter in discussion of advanced directive 17 minutes. Laboratory Results 08/21/24 10:45: WBC 10.3, RBC 2.83 L, Hgb 8.7 L, Hct 28.8 L, MCV 101.8 H, MCH 30.7, MCHC 30.2 L, RDW Std Deviation 68.8 H, RDW Coeff of Rafael 18.4 H, Plt Count 226, MPV 11.3, Immature Gran % (Auto) 1.100 H, Neut % (Auto) 71.0 H, Lymph % (Auto) 15.2 L, [place] % (Auto) 10.5 H, Eos % (Auto) 1.9, Baso % (Auto) 0.3, Absolute Neuts (auto) 7.3, Absolute Lymphs (auto) 1.57, Nucleated RBC % 0.4, Platelet Estimate A, Polychromasia 1+, Anisocytosis 1+, PT 14.1, INR 1.1, APTT 25.6, Sodium 145, Potassium 4.5, Chloride 105, Carbon Dioxide 29.3, Anion Gap 11, BUN 21 H, Creatinine 1.27 H, Estim Creat Clear Calc 62.12, Est GFR (MDRD) Non-Af 59 L, BUN/Creatinine Ratio 16.6, Glucose 150 H, Lactic Acid 1.3, Calcium 8.2, Total Bilirubin 0.49, AST 29, ALT 19, Alkaline Phosphatase 71, Troponin T High Sens 97 H*, [place] [address] H, Total Protein 6.2, Albumin 3.5, Globulin 2.7, Albumin/Globulin Ratio 1.3 08/21/24 12:15: Specimen Type ART, Sample Site L Radial, pH 7.45, Bicarbonate Actual 39.9 H, Total CO2 42, Base Excess 16 H, O2 Saturation 94 L, O2 % 40.0, ABG pCO2 58.0 H, ABG pO2 69 L, Thompson Test Positive, Respiration Rate 14, O2 Delivery Device BiPAP, Vent Mode Not entered, POC PEEP 9 Clinical Impression(s) from Imaging Studies Chest X-Ray 08/21/24 11:02 IMPRESSION: Worsened moderate right pleural effusion. Trace left base effusion. Superimposed focal consolidation not excluded within the right lower lobe. Dndq-oh-[id number] pulmonary edema. Median sternotomy wires. Cardiac silhouette is unchanged. No pneumothorax. Reading Location: [id number] Charges/Coding Visit Charges Inpatient E&M: 30636 Init Hosp L3 Procedures Hospitalists Procedures: 71870 Advncd Care Plan 30 Min
[2024-08-21 12:24] LABS: Mucous, Urine 0 SEEN /hpf (<or=2+)
--- OUTSIDE RECORDS SUMMARY | 2024-08-21 12:28 | XMS RPT_ITS | CCD ---
Author Organization [facility] Care Team Providers Care Human Resources Manager Name Role Phone Dr. Donna Will Primary [...] Dr. Marco Cruz Attending Provider Dr. Marco rCuz Other Provider Dr. Alexi Roblero Other Provider [...] Other Provider Dr. Clive Sharp Referring Provider [facility] Dr. Arciniega Attending Provider Dr. Norm Mello Attending Provider Oliver MANAGER WELDING, MANAGER WELDING-C Luz Attending Provider Dr. Marco Hoffman Emergency Provider Franciegoodspringjaime, Dr. Arciniega Admit Provider Dr. Jordan Ortiz Other Provider Unavailable Dr. Wilberto Villafuerte Other Provider Dr. Anthony Singleton Attending Provider Dr. Silas Sinha Chi Referring Provider Dr. Jordan Ortiz Attending Provider Unavailable Dr. Wilberto Huerta Attending Provider [phone] Jordan rOtiz Referring Provider Unavailable Dr. Khai Galeana Attending Provider Dr. Wilberto Huerta Other Provider TAMICA Tay Attending Provider Dr. Khai Galeana Referring Provider [phone] Beatriz Osorio Attending Provider Unavailable Ashok MANAGER WELDING, MANAGER WELDING-C More Attending Provider Dr. Farida Todd Emergency Provider Dr. Jordan Ortiz Admit Provider Unavailable Dr. Donna Will Primary Care Provider Dr. Donna Will Attending Provider [phone] Dr. Donna Will Referring Provider [phone] Dr. Jordan Ortiz Attending Provider Unavailable Dr. Jordan Ortiz Other Provider Unavailable Dr. Wilberto Huerta Attending Provider [phone] Donna Will Primary Care Provider Dr. Donna Will Referring Provider [phone] Dr. Donna Will Attending Provider Dr. Hayden Morley Emergency Provider Dr. Janice Mackey Admit Provider Dr. Janice Mackey Other Provider Dr. Nadira Ricks Attending Provider Dr. Nadira Ricks Other Provider Dr. Donna Will Primary Care Provider Dr. Donna Will Referring Provider [phone] Ashok MANAGER WELDING, MANAGER WELDING-C More Attending Provider Dr. Wilberto Huerta Referring Provider YANELIS Mayfield Attending Provider Piña, Dannielle [facility] Tobi Bocanegra Attending Provider YANELIS Mayfield Referring Provider PIÑA, MANAGER WELDING-C DANNIELLE Primary Care Provider PIÑA, MANAGER WELDING-C DANNIELLE Referring Provider [phone] Dr. Marco Hoffman Emergency Provider Dr. Maroi Dewitt Admit Provider Dr. Mario Dewitt Attending Provider Dr. Mario Dewitt Other Provider Dr. Khai Galeana Other Provider Dr. Tobi Shannon Attending Provider Dr. Khai Galeana Attending Provider Dr. Suze Rosas Other Provider Dr. Suze Rosas Attending Provider Dr. Donna Will Primary Care Provider Dr. Donna Will Referring Provider [phone] Ashok MANAGER WELDING, MANAGER WELDING-C More Attending Provider Dr. Suze Rosas Attending [...] Attending Provider YANELIS Mayfield Referring Provider PIÑA, MANAGER WELDING-C DANNIELLE Primary Care Provider PIÑA, MANAGER WELDING-C DANNIELLE Referring Provider Ashok MANAGER WELDING, MANAGER WELDING-C More Attending Provider Dr. Marco Hoffman Emergency [...] Angel, Dr. Ortega Attending Provider Unavailable CARO, MANAGER WELDING-C DANNIELLE Primary Care Provider Dr. Janice Mackey [...] Dr. Afshin Pablo Other Provider Unavailab Garg MANAGER WELDING, MANAGER WELDING-C More Other Provider Dr. Anthony Singleton Attending Provider GERA PIÑA-Gurwinder DEJESUS Primary Care Provider Dr. Margie Joy Emergency Provider Dr. Jancie Mackey Admit Provider Dr. Janice Mackey Attending Provider Dr. Janice aMckey Other Provider Dr. Suze Rosas Attending Provider Alison, Dr. Arciniega Other Provider Dr. Jordan Ortiz Referring Provider Unavailable Angel, Dr. Ortega Other Provider Unavailable Lissett, Dr. Ridley Attending Provider [phone] Dr. Jordan Ortiz Attending Provider Unavailable CARO, MANAGER WELDING-C DANNIELLE Referring Provider [phone] Dr. Tobi Zapata Attending Provider Dr. Faisal Walker Emergency Provider Mirtha, Dr. Tobi Desaiit Provider Mirtha, Dr. Britton Attending Provider Dr. Tobi Shannon Other Provider Mirtha, Dr. Britton Referring Provider Dr. Alexi Roblero Attending Provider [phone] Alexi Roblero Other Provider Dr. Anthony Singleton Other Provider Dr. Rambo Bruner Other Provider [phone] Afshin Pablo Other Provider Unavail higinio Pulido MANAGER WELDING, MANAGER WELDING-C More Other Provider Dr. Anthony Singleton Attending Provider [phone])[phone] CARO MANAGER WELDING-C DANNIELLE Primary Care Provider CARO MANAGER WELDING-C DANNIELLE Referring Provider [phone] Dr. Tobi Zapata Attending Provider Dr. Faisal Walker Emergency Provider [phone] Tobi Shannonit Provider Dr. Tobi Shannon Attending Provider Dr. Tobi Shannon Other Provider Dr. Tboi Shannon Referring Provider Dr. Suze Rosas Other Provider Dr. Alexi Roblero Attending Provider Dr. Alexi Roblero Other Provider Dr. Anthony Singleton Other Provider Dr. Rambo Bruner Other Provider Dr. Afshin Pablo Other Provider Unavailab higinio Pulido MANAGER WELDING, MANAGER WELDING-C More Other Provider Dr. Suze Rosas Attending Provider Dr. Anthony Singleton Attending Provider Dr. Jordan Ortiz Other Provider Unavailable Dr. Jordan Ortiz Attending Provider Unavailable PIÑA, MANAGER WELDING-C DANNIELLE Primary Care Provider PIÑA, MANAGER WELDING-C DANNIELLE Referring Provider [phone] Dr. Tobi Zapata Attending Provider Ashok MANAGER WELDING, MANAGER WELDING-C More Attending Provider PIÑA, MANAGER WELDING-C DANNIELLE Primary Care Provider Dr. Anthony Singleton Attending Provider Dr. Anthony Singleton Referring Provider Dr. Anthony Singleton Other Provider Dr. Khai Galeana Attending Provider PIÑA, MANAGER WELDING-C DANNIELLE Primary Care Provider Dr. Anthony Singleton Attending Provider PIÑA, MANAGER WELDING-C DANNIELLE Referring Provider Dr. Tobi Zapata Attending Provider Dr. Donna Will Attending Provider PIÑA, MANAGER WELDING-C DANNIELLE Primary Care Provider PIÑA, MANAGER WELDING-C DANNIELLE Referring Provider [phone] Dr. Khai Galeana Attending Provider Dr. Donna Will Primary Care Provider Dr. Donna Will Referring Provider Dr. Norm Mello Attending Provider West MANAGER WELDING, MANAGER WELDING-C Martha Attending Provider [phone] Dr. Jj [...] Unavailable Dr. Donna Will Attending Provider Ashok MANAGER WELDING, MANAGER WELDING-C More Attending Provider [phone] Dr. Donna Will Primary Care Provider Dr. Donna Will Referring Provider Dr. Tobi Zapata Attending Provider Dr. Donna Will Primary Care Provider Dr. Jj Garcia Emergency Provider Dr. Loki Lozoya Admit Provider [phone] Loki Lozoya Attending Provider Dr. Loki Lozoya Other Provider Dr. Chicho Carson Attending Provider Dr. Loki Lozoya Referring Provider [phone] Dr. Jordan Ortiz Attending Provider Unavailable Dr. Jordan Ortiz Other Provider Unavailable Dr. Donna Will Attending Provider [phone] Dr. Donna Will Referring Provider Dr. Tobi Zapata Attending Provider Ashok MANAGER WELDING, MANAGER WELDING-C More Attending Provider Dr. Dwain Nowak Emergency [...] Other Provider Dr. Carlito Cárdenas Other Provider [phone] Claudine Andrade Other Provider [phone] Dr. Marvin Coats Other Provider Dr. Elizabeth Wilson Other Provider Dr. Aric Leon Other Provider Unavailable Dr. Rajeev Dalton Other Provider Dr. Roberto Escalante Other Provider Dr. Madi Tavarez Other Provider Dr. Zhang Concepcion Other Provider Aron, Dr. Duffy Referring Provider Aron, Dr. Duffy Other Provider Aron, Dr. Duffy Attending Provider Dr. Norm Mello Referring Provider Lissett, Dr. Ridley Attending Provider [phone] GERA Castro-C Bethany Purcell Attending Provider Dr. Donna Will Attending Provider Dr. Donna Will Primary Care Provider Dr. Donna Will Referring Provider Dr. Tobi Zapata Attending Provider Ashok MANAGER WELDING, MANAGER WELDING-C More Attending Provider [phone] Dr. Dwain Nowak Emergency Provider Dr. Mable [...] Provider Dr. Donna Will Attending Provider Rudolph MANAGER WELDING, MANAGER WELDING-C Jennifer Attending Provider Dr. Donna Will Primary Care Provider Dr. Donna Will Referring Provider Dr. Tobi Zapata Attending Provider Benny, Dr. Britton Referring Provider Benny, Dr. Britton Other Provider Dr. Donna Will MD Primary Care Provider Dr. Donna Will MD Attending Provider Suman TEIXEIRA, Dr. Thompson Referring Provider Gumaro MANAGER WELDING-CGris Attending Provider Gumaro MANAGER WELDING-CGris Referring Provider Elizabeth Mayfield Attending Provider Higinio [place], Dr. Ly Emergency Provider de Americo [place], Dr. Ortega Admit Provider Unavail able Mendoza DO, Dr. Ortega Other Provider Unavail able Darwin TEIXEIRA, Dr. Esparza Other Provider Milana TEIXEIRA, Dr. Peck Other Provider Osbaldo TEIXEIRA, Dr. Truong Other Provider Mani [place], Dr. Cruz Other Provider Clinton TEIXEIRA, Dr. Jordan Serra Other Provider Mike TEIXEIRA, Dr. Dsouza Other Provider Avi TEIXEIRA, Dr. Esteban Other Provider Raymond TEIXEIRA, Dr. Chow Other Provider [phone] Pauly TEIXEIRA, Dr. Wong Other Provider Lyle TEIXEIRA, Dr. Cochran Other Provider Dr. Kashif Berg MD Other Provider Dr. Elizabeth Wilson MD Other Provider Dr. Aric Leon MD Other [facility] jaclyn Dugan [facility], Dr. Burrell Other Provider Alberta TEIXEIRA, Dr. Meyer Other Provider [phone] Rajeev Dalton MD Other Provider Ava TEIXEIRA, Dr. Mejia Other Provider Dr. Nikolai Keller DO Other Provider [phone] Aaliyah TEIXEIRA, Dr. Crabtree Other Provider Jodi TEIXEIRA, Dr. Urbano Other Provider Austin [place], Dr. Dc Other Provider Corby TEIXEIRA, Dr. Barraza Other Provider Jamey TEIXEIRA, Dr. Holcomb Other Provider Jaleesa TEIXEIRA, Dr. Huang Paul Attending Provider Mani [place], Dr. Cruz Attending Provider Jaleesa TEIXEIRA, Dr. Huang Paul Referring Provider Jaleesa TEIXEIRA, Dr. Huang Paul Other Provider Lissett [place], Dr. Ridley Attending Provider West MANAGER WELDING-C, Martha Attending Provider CARO MANAGER WELDING-C, DANNIELLE Primary Care Provider Benny TEIXEIRA, Dr. [...] Suman TEIXEIRA, Dr. Thompson Referring Provider Gumaro MANAGER WELDING-C, Gris Dominguez Attending Provider Macho TEIXEIRA, Dr. Akins Referring Provider Suman TEIXEIRA, Dr. Thompson Attending Provider Yasmin [place], Dr. Lara Emergency Provider Yasmin [place], Dr. Lara Attending Provider Gumaro BOSS-CGris Referring Provider Suman TEIXEIRA, Dr. Thompson Primary Care Provider Suman TEIXEIRA, Dr. Thompson Referring Provider Noy TEIXEIRA, Dr. Ladd Attending Provider [phone] Noy TEIXEIRA, Dr. Ladd Referring Provider CARO MANAGER WELDING-C, UNION Primary Care Provider Benny TEIXEIRA, Dr. Britton Attending Provider Benny TEIXEIRA, Dr. Britton Referring Provider [phone] Benny TEIXEIRA, Dr. Britton Attending Provider [phone] Benny TEIXEIRA, Dr. Britton Referring Provider CARO MANAGER WELDING-C, UNION Primary Care Provider Donna Will Primary Care [...] Nikolai Consulting Unavailable Fischer, Sujoy Consulting Unavailable Harper, Soleyah Consulting Unavailable Fernstrom, Dao Consulting Unavailable [...] Nikolai Consulting Unavailable Fischer, Sujoy Consulting Unavailable Harper, Soleyah Consulting Unavailable Justinnstrom, Dao Consulting Unavailable Corby, Madi Consulting Unavailable Zhang Concepcion Consulting Unavailable Jordan Mendoza Consulting Unavailable Huang Lazcnao Consulting Unavailable Suman, Donna Primary Care Unavailable [...] Unavailable Suman, Donna Primary Care Unavailable Janice Makcey Referring Unavailable Mekhi Garcia Attending Unavailable Suman, [...] Unavailable Suman, Donna Primary Care Unavailable West MANAGER WELDING, Martha Attending Unavailable Suman, Donna Primary Care Unavailable Suman, Donna Referring Unavailable Tobi Zapata Attending Unavailable Suman, Donna Primary Care Unavailable aMrcus HILARIO, Elizabeth Dominguez Attending Unavail able Suman, [...] Unavailable Suman, Donna Primary Care Unavailable Ashok MANAGER WELDING, More Attending Unavailable Suman, Donna Referring Unavailable Suman, Donna Primary Care Unavailable Zeferino BOSS, Sreedhar lBair Attending Unavailable Jordan Mendoza Attending Unavailable Anthony [...] Unavailable Suman, Donna Primary Care Unavailable Khai Galaena Attending Unavailable Gris Naik Attending Unavailable Suman, Donna Referring Unavailable Suman, Donna Primary Care Unavailable Donna Will Attending Unavailable Suman, Donna Primary Care Unavailable Suman, Donna Referring Unavailable Suman, Donna Primary Care Unavailable Tobi Zapata Attending Unavailable Ashok MANAGER WELDING, More Attending Unavailable Suman, Donna Primary Care Unavailable Ashok MANAGER WELDING, More Referring Unavailable Donna Will Primary Care Unavailable Tobi Zapata Referring Unavailable Tobi Zapata Attending Unavailable Allergies Allergy Classification Reported Allergen(s) Allergy Type Date of Onset Reaction(s) Facility (5 sources) Famotidine Drug Allergy 2 Diarrhea [facility] Work Phone: (20 sources) levoFLOXacin Drug Allergy 2 dizziness, diarrhea, dizziness, GI upset, weakness [facility] (1 source) levoFLOXacin Drug Allergy 5 [facility] Repository Medications Current Medications Medication Drug [...] extended release oral tablet (10 sources) Uncompetitive O-cpnnrc-S-aspartate Receptor Antagonist, Sigma-1 Agonist Start: 11-11-2023 End: 03-03-2024 docusate sodium 50 mg / sennosides, senior care 8.6 mg oral tablet (20 sources) Start: [...] mL by inhalation every six hours Ipratropium Dolliver Discontinued 2.5 ML INHALATION EVERY 6 HOURS [...] 21, 2021 11:35am December 08, 2021 7:17pm Multivitamin,Ob-Lbfn-Utkwsho s (20 sources) Start: 09-11-2013 End: 09-13-2019 take 1 tablet by mouth once daily Multivitamin,Yn-Xafw-Zdtqcsfu Discontinued 1 TABLET PO DAILY September 11, 2013 1:21pm September 13, 2019 1:47pm Start: 09-11-2013 End: 09-13-2019 take 1 tablet by mouth once daily Multivitamin,Ws-Zohq-Vohtfbza Discontinu ed 1 TABLET PO DAILY September 10, 2013 11:00pm September 13, 2019 12:47pm Start: 09-11-2013 End: 09-13-2019 take 1 tablet by mouth once daily Multivitamin,Ap-Emww-Yqecqlwc Discontinu ed 1 TABLET PO DAILY September [...] ml riTUXimab 10 mg/ml injection (20 sources) [id number] Cytolytic Antibody Start: 09-28-2019 End: 03-25-2021 rituximab [...] Coronary arteriosclerosis; Translations: [Atherosclerotic heart disease of [place] coronary artery without angina pectoris] Chronic Deficiency [...] Respiratory failure; insufficiency; arrest (adult) (20 sources) [id number]-[id number] respiratory failure; Translations: [Acute and chronic respiratory [...] GI hemoglobin IA Ql (Stl) Positive Abnormal [facility] Anion gap in Serum or Plasma Ordered By: Wilberto Villafuerte on 07-21-2024 Anion gap [Moles/Vol] 7 mmol/L 5-15 [facility] BUN/creatinine ratioOrdered By: Wilberto Villafuerte on 07-21-2024 Urea nitrogen/Creatinine [Mass ratio] 25.7 mg/mg High 10-20 [facility] Carbon dioxide, total [Moles /volume] in Central venous bloodOrdered By: Wilberto Villafuerte on 07-21-2024 CO2 [Moles/Vol] 31.9 mmol/L 21.0-32.0 [facility] Chloride assayOrdered By: Anh Villafuerte on 07-21-2024 Chloride [Moles/Vol] 105 mmol/L 98-108 [facility] Erythrocyte distribution wid th ratioOrdered By: Wilberto Villafuerte on 07-21-2024 Erythrocyte distribution width (RBC) [Ratio] 20.5 % High 11.6-14.6 [facility] Erythrocyte distribution wid th standard deviationOrdered By: Wilberto Villafuerte on 07-21-2024 Erythrocyte distribution width (RBC) [Ratio] 75.2 fl High 35.1-43.9 [facility] Glomerular filtration rate ( GFR) estimation/1.73 sq m using serum, plasma, or whole bOrdered By: Wilberto Villafuerte on 07-21-2024 GFR/1.73 sq M.predicted among non-blacks MDRD (S/P/Bld) [Vol rate/Area] 59 mL/min/{1.73_m2} Low >60 [facility] Hematocrit Auto (Bld) [Volum e fraction]Ordered By: Wilberto Villafuerte on 07-21-2024 Hematocrit (Bld) [Volume fraction] 23.3 % Low 40-54 [facility] Hemoglobin measurementOrdere d By: Wilberto Villafuerte on 07-21-2024 Hemoglobin (Bld) [Mass/Vol] 7.0 g/dL Low 13.0-16.5 [facility] MCV (mean corpuscular volume ) determinationOrdered By: Wilberto Villafuerte on 07-21-2024 MCV (RBC) [Entitic vol] 100.9 fL High 80-94 [facility] Mean corpuscular hemoglobin (MCH) determinationOrdered By: Wilberto Villafuerte on 07-21-2024 MCH (RBC) [Entitic mass] 30.3 pg 27.0-32.0 [facility] Platelet countOrdered By: Anh Villafuerte on 07-21-2024 Platelets (Bld) [#/Vol] 235 10*3/uL 150-450 [facility] Potassium measurement (mass/ volume)Ordered By: Wilberto Villafuerte on 07-21-2024 Potassium (Unsp spec) [Mass/Vol] 4.9 mmol/L 3.3-5.1 [facility] RBC Auto (Bld) [#/Vol]Ordere d By: Wilberto Villafuerte on 07-21-2024 RBC (Bld) [#/Vol] 2.31 10*6/uL Low 4.6-6.2 [facility] Serum creatinine measurement (mass/volume)Ordered By: Wilberto Villafuerte on 07-21-2024 Creatinine [Mass/Vol] 1.27 mg/dL High 0.70-1.20 [facility] Serum glucose measurement (m ass/volume)Ordered By: Wilberto Villafuerte on 07-21-2024 Glucose [Mass/Vol] 178 mg/dL High 70-99 [facility] Serum or plasma calcium yocasta urement (mass/volume)Ordered By: Wilberto Villafuerte on 07-21-2024 Calcium [Mass/Vol] 8.7 mg/dL 7.6-11.0 [facility] Serum or plasma urea nitroge n measurement (mass/volume)Ordered By: Wilberto Villafuerte on 07-21-2024 Urea nitrogen [Mass/Vol] 33 mg/dL High 4-19 [facility] Sodium levelOrdered By: Jacob Villafuerte on 07-21-2024 Sodium [Moles/Vol] 144 mmol/L 133-145 [facility] Trough vancomycin levelOrder ed By: Wilberto Villafuerte on 07-21-2024 Vancomycin trough [Mass/Vol] 16.3 ug/mL High 5.0-15.0 [facility] White blood cell (WBC) count Ordered By: Wilberto Villafuerte on 07-21-2024 WBC (Bld) [#/Vol] 8.4 10*3/uL 4.4-11.0 [facility] Anion gap in Serum or Plasma Ordered By: Martha Dodson on 07-20-2024 Anion gap [Moles/Vol] 9 mmol/L 5-15 [facility] BUN/creatinine ratioOrdered By: Martha Dodson on 07-20-2024 Urea nitrogen/Creatinine [Mass ratio] 22.9 mg/mg High 10-20 [facility] Bilirubin, totalOrdered By: Martha Dodson on 07-20-2024 Bilirubin [Mass/Vol] 0.31 mg/dL 0.00-1.30 [facility] Carbon dioxide, total [Moles /volume] in Central venous bloodOrdered By: Martha Dodson on 07-20-2024 CO2 [Moles/Vol] 30.8 mmol/L 21.0-32.0 [facility] Chloride assayOrdered By: Dave Dodson on 07-20-2024 Chloride [Moles/Vol] 104 mmol/L 98-108 [facility] Glomerular filtration rate ( GFR) estimation/1.73 sq m using serum, plasma, or whole bOrdered By: Martha Dodson on 07-20-2024 GFR/1.73 sq M.predicted among non-blacks MDRD (S/P/Bld) [Vol rate/Area] 50 mL/min/{1.73_m2} Low >60 [facility] Iron measurement (mass/mass) Ordered By: Martha Dodson on 07-20-2024 Iron (Unsp spec) [Mass/Mass] 37 ug/dL Low 65-175 [facility] No Panel InformationOrdered By: Martha Dodson on 07-20-2024 14 U/L <38 [facility] 183 ug/dL Low 228-428 [facility] Potassium measurement (mass/ volume)Ordered By: Martha Dodson on 07-20-2024 Potassium (Unsp spec) [Mass/Vol] 4.6 mmol/L 3.3-5.1 [facility] Serum creatinine measurement (mass/volume)Ordered By: Martha Dodson on 07-20-2024 Creatinine [Mass/Vol] 1.46 mg/dL High 0.70-1.20 [facility] Serum globulin measurementOr dered By: Martha Dodson on 07-20-2024 Globulin (S) [Mass/Vol] 2.3 g/dL 2.2-4.2 [facility] Serum glucose measurement (m ass/volume)Ordered By: Martha Dodson on 07-20-2024 Glucose [Mass/Vol] 179 mg/dL High 70-99 [facility] Serum or plasma alanine barber otransferase (ALT) measurementOrdered By: Martha Dodson on 07-20-2024 ALT [Catalytic activity/Vol] 19 U/L <47 [facility] Serum or plasma albumin yocasta urement (mass/volume)Ordered By: Martha Dodson on 07-20-2024 Albumin [Mass/Vol] 3.7 g/dL 3.4-4.8 [facility] Serum or plasma albumin/glob ulin mass ratioOrdered By: Martha Dodson 07-20-2024 Albumin/Globulin [Mass ratio] 1.6 {ratio} 0.9-2.4 [facility] Serum or plasma alkaline justin sphatase measurementOrdered By: Martha Dodson 07-20-2024 ALP [Catalytic activity/Vol] 89 U/L 40-129 [facility] Serum or plasma calcium yocasta urement (mass/volume)Ordered By: Martha Dodson on 07-20-2024 Calcium [Mass/Vol] 8.8 mg/dL 7.6-11.0 [facility] Serum or plasma ferritin vasquez surement (mass/volume)Ordered By: Martha Dodson on 07-20-2024 Ferritin [Mass/Vol] 137 ng/mL 37-417 [facility] Serum or plasma iron saturat ion measurement (mass fraction)Ordered By: Martha Dodson on 07-20-2024 Iron saturation [Mass fraction] 16.8 % 9-55 [facility] Serum or plasma urea nitroge n measurement (mass/volume)Ordered By: Martha Dodson on 07-20-2024 Urea nitrogen [Mass/Vol] 34 mg/dL High 4-19 [facility] Sodium levelOrdered By: Martha Dodson on 07-20-2024 Sodium [Moles/Vol] 144 mmol/L 133-145 [facility] Total proteinOrdered By: Jayden Dodson on 07-20-2024 Protein [Mass/Vol] 6.0 g/dL 5.9-8.4 [facility] Anion gap in Serum or Plasma Ordered By: Wilberto Villafuerte on 07-14-2024 Anion gap [Moles/Vol] 10 mmol/L 5-15 [facility] BUN/creatinine ratioOrdered By: Wilberto Villafuerte on 07-14-2024 Urea nitrogen/Creatinine [Mass ratio] 28.0 mg/mg High 10-20 [facility] Carbon dioxide, total [Moles /volume] in Central venous bloodOrdered By: Wilberto Villafuerte on 07-14-2024 CO2 [Moles/Vol] 29.3 mmol/L 21.0-32.0 [facility] Chloride assayOrdered By: Anh Villafuerte on 07-14-2024 Chloride [Moles/Vol] 104 mmol/L 98-108 [facility] Glomerular filtration rate ( GFR) estimation/1.73 sq m using serum, plasma, or whole bOrdered By: Wilberto Villafuerte on 07-14-2024 GFR/1.73 sq M.predicted among non-blacks MDRD (S/P/Bld) [Vol rate/Area] 43 mL/min/{1.73_m2} Low >60 [facility] Potassium measurement (mass/ volume)Ordered By: Wilberto Villafuerte on 07-14-2024 Potassium (Unsp spec) [Mass/Vol] 5.1 mmol/L 3.3-5.1 [facility] Serum creatinine measurement (mass/volume)Ordered By: Wilberto Villafuerte on 07-14-2024 Creatinine [Mass/Vol] 1.65 mg/dL High 0.70-1.20 [facility] Serum glucose measurement (m ass/volume)Ordered By: Wilberto Villafuerte on 07-14-2024 Glucose [Mass/Vol] 135 mg/dL High 70-99 [facility] Serum or plasma calcium yocasta urement (mass/volume)Ordered By: Wilberto Villafuerte on 07-14-2024 Calcium [Mass/Vol] 8.6 mg/dL 7.6-11.0 [facility] Serum or plasma urea nitroge n measurement (mass/volume)Ordered By: Wilberto Villafuerte on 07-14-2024 Urea nitrogen [Mass/Vol] 46 mg/dL High 4-19 [facility] Sodium levelOrdered By: Jacob Villafuerte on 07-14-2024 Sodium [Moles/Vol] 143 mmol/L 133-145 [facility] Trough vancomycin levelOrder ed By: Wilberto Villafuerte on 07-14-2024 Vancomycin trough [Mass/Vol] 21.5 ug/mL High 5.0-15.0 [facility] Anion gap in Serum or Plasma Ordered By: GERA Naik on 07-12-2024 Anion gap [Moles/Vol] 9 mmol/L 5-15 [facility] BUN/creatinine ratioOrdered By: GERA Naik on 07-12-2024 Urea nitrogen/Creatinine [Mass ratio] 27.1 mg/mg High 10-20 [facility] Blood manual differential co mment interpretation (narrative result)Ordered By: GERA Naik on 07-12-2024 Manual differential comment Sohan (Bld) [Interp] See comment [facility] Carbon dioxide, total [Moles /volume] in Central venous bloodOrdered By: GERA Naik on 07-12-2024 CO2 [Moles/Vol] 29.3 mmol/L 21.0-32.0 [facility] Chloride assayOrdered By: GERA Naik on 07-12-2024 Chloride [Moles/Vol] 105 mmol/L 98-108 [facility] Erythrocyte distribution wid th ratioOrdered By: GERA Naik on 07-12-2024 Erythrocyte distribution width (RBC) [Ratio] 19.7 % High 11.6-14.6 [facility] Erythrocyte distribution wid th standard deviationOrdered By: GERA Naik on 07-12-2024 Erythrocyte distribution width (RBC) [Ratio] 69.9 fl High 35.1-43.9 [facility] Glomerular filtration rate ( GFR) estimation/1.73 sq m using serum, plasma, or whole bOrdered By: GERA Naik on 07-12-2024 GFR/1.73 sq M.predicted among non-blacks MDRD (S/P/Bld) [Vol rate/Area] 52 mL/min/{1.73_m2} Low >60 [facility] Hematocrit Auto (Bld) [Volum e fraction]Ordered By: GERA Naik on 07-12-2024 Hematocrit (Bld) [Volume fraction] 24.5 % Low 40-54 [facility] Hemoglobin measurementOrdere d By: GERA Naik on 07-12-2024 Hemoglobin (Bld) [Mass/Vol] 7.4 g/dL Low 13.0-16.5 [facility] MCV (mean corpuscular volume ) determinationOrdered By: GERA Naik on 07-12-2024 MCV (RBC) [Entitic vol] 97.6 fL High 80-94 [facility] Mean corpuscular hemoglobin (MCH) determinationOrdered By: GERA Naik on 07-12-2024 MCH (RBC) [Entitic mass] 29.5 pg 27.0-32.0 [facility] Platelet countOrdered By: GERA Naik on 07-12-2024 Platelets (Bld) [#/Vol] 199 10*3/uL 150-450 [facility] Potassium measurement (mass/ volume)Ordered By: GERA Naik on 07-12-2024 Potassium (Unsp spec) [Mass/Vol] 5.3 mmol/L High 3.3-5.1 [facility] RBC Auto (Bld) [#/Vol]Ordere d By: GERA Naik on 07-12-2024 RBC (Bld) [#/Vol] 2.51 10*6/uL Low 4.6-6.2 [facility] Serum creatinine measurement (mass/volume)Ordered By: GERA Naik on 07-12-2024 Creatinine [Mass/Vol] 1.41 mg/dL High 0.70-1.20 [facility] Serum glucose measurement (m ass/volume)Ordered By: GERA Naik on 07-12-2024 Glucose [Mass/Vol] 363 mg/dL High 70-99 [facility] Serum or plasma calcium yocasta urement (mass/volume)Ordered By: GERA Naik on 07-12-2024 Calcium [Mass/Vol] 8.8 mg/dL 7.6-11.0 [facility] Serum or plasma urea nitroge n measurement (mass/volume)Ordered By: GERA Naik on 07-12-2024 Urea nitrogen [Mass/Vol] 38 mg/dL High 4-19 [facility] Sodium levelOrdered By: GERA Naik on 07-12-2024 Sodium [Moles/Vol] 144 mmol/L 133-145 [facility] Trough vancomycin levelOrder ed By: GERA Naik on 07-12-2024 Vancomycin trough [Mass/Vol] 27.7 ug/mL High 5.0-15.0 [facility] White blood cell (WBC) count Ordered By: GERA Naik on 07-12-2024 WBC (Bld) [#/Vol] 7.2 10*3/uL 4.4-11.0 [facility] Absolute lymphocyte countOrd ered By: Marco Hoffman on 07-08-2024 Lymphocytes Auto (Unsp spec) [#/Vol] 1.34 10*3/uL 0.83-4.51 [facility] Activated partial thrombopla stin time (aPTT) in platelet poor plasma by coagulation aOrdered By: Marco Hoffman on 07-08-2024 aPTT Coag (PPP) [Time] 31.3 s 24.1-36.2 [facility] Anion gap in Serum or Plasma Ordered By: Marco Hoffman on 07-08-2024 Anion gap [Moles/Vol] 11 mmol/L - [facility] Automated lymphocyte count a s percentage of total leukocytesOrdered By: Marco Hoffman on 07-08-2024 Lymphocytes/100 WBC Auto (Unsp spec) 15.2 % Low 19-41 [facility] BUN/creatinine ratioOrdered By: Marco Hoffman on 07-08-2024 Urea nitrogen/Creatinine [Mass ratio] 30.5 mg/mg High 10-20 [facility] Basophil percentageOrdered B y: Marco Hoffman on 07-08-2024 Basophils/100 WBC (Bld) 0.2 % 0-1 [facility] Bilirubin Test strip Ql (U)O rdered By: Marco Hoffman on 07-08-2024 Bilirubin Ql (U) Negative Negative [facility] Bilirubin, totalOrdered By: Marco Hoffman on 07-08-2024 Bilirubin [Mass/Vol] 0.35 mg/dL 0.00-1.30 [facility] Blood cultureOrdered By: Jasmine Hoffman on 07-08-2024 Bacteria identified Cx Nom (Bld) No growth in 5 days. [facility] Bacteria identified Cx Nom (Bld) No growth in 5 days. [facility] Carbon dioxide, total [Moles /volume] in Central venous bloodOrdered By: Marco Hoffman on 07-08-2024 CO2 [Moles/Vol] 27.6 mmol/L 21.0-32.0 [facility] Chloride assayOrdered By: Deangelo Hoffman on 07-08-2024 Chloride [Moles/Vol] 106 mmol/L 98-108 [facility] Eosinophil percentageOrdered By: Marco Hoffman on 07-08-2024 Eosinophils/100 WBC (Bld) 2.0 % 0-5 [facility] Erythrocyte distribution wid th ratioOrdered By: Marco Hoffman on 07-08-2024 Erythrocyte distribution width (RBC) [Ratio] 20.1 % High 11.6-14.6 [facility] Erythrocyte distribution wid th standard deviationOrdered By: Marco Hoffman on 07-08-2024 Erythrocyte distribution width (RBC) [Ratio] 70.7 fl High 35.1-43.9 [facility] Glomerular filtration rate ( GFR) estimation/1.73 sq m using serum, plasma, or whole bOrdered By: Marco Hoffman on 07-08-2024 GFR/1.73 sq M.predicted among non-blacks MDRD (S/P/Bld) [Vol rate/Area] 59 mL/min/{1.73_m2} Low >60 [facility] Hematocrit Auto (Bld) [Volum e fraction]Ordered By: Marco Hoffman on 07-08-2024 Hematocrit (Bld) [Volume fraction] 23.2 % Low 40-54 [facility] Hemoglobin measurementOrdere d By: Marco Hoffman on 07-08-2024 Hemoglobin (Bld) [Mass/Vol] 7.2 g/dL Low 13.0-16.5 [facility] Immature granulocytes/100 WB C Auto (Bld)Ordered By: Marco Hoffman on 07-08-2024 Immature granulocytes/100 WBC (Bld) 1.500 % High 0.0-0.9 [facility] Ketones Test strip Ql (U)Ord ered By: Marco Hoffman on 07-08-2024 Ketones Ql (U) Negative Negative [facility] MCV (mean corpuscular volume ) determinationOrdered By: Marco Hoffman on 07-08-2024 MCV (RBC) [Entitic vol] 95.5 fL High 80-94 [facility] Mean corpuscular hemoglobin (MCH) determinationOrdered By: Marco Hoffman on 07-08-2024 MCH (RBC) [Entitic mass] 29.6 pg 27.0-32.0 [facility] Monocyte percentageOrdered B y: Marco Hoffman on 07-08-2024 Monocytes/100 WBC (Bld) 9.4 % 0-10 [facility] Mucus LM Ql (Urine sed)Order ed By: Marco Hoffman on 07-08-2024 Mucus Ql (Urine sed) 0 SEEN /hpf [facility] Neutrophil percentageOrdered By: Marco Hoffman on 07-08-2024 Neutrophils/100 WBC (Bld) 71.7 % High 47-70 [facility] Nitrite Test strip Ql (U)Ord ered By: Marco Hoffman on 07-08-2024 Nitrite Ql (U) Negative Negative [facility] No Panel InformationOrdered By: Marco Hoffman on 07-08-2024 23 U/L <38 [facility] 2+ [facility] Platelet countOrdered By: Deangelo Hoffman on 07-08-2024 Platelets (Bld) [#/Vol] 162 10*3/uL 150-450 [facility] Potassium measurement (mass/ volume)Ordered By: Marco Hoffman on 07-08-2024 Potassium (Unsp spec) [Mass/Vol] 3.8 mmol/L 3.3-5.1 [facility] Protein Test strip Ql (U)Ord ered By: Marco Hoffman on 07-08-2024 Protein Ql (U) 30 mg/dl High Negative [facility] Prothrombin timeOrdered By: Marco Hoffman on 07-08-2024 PT Coag (PPP) [Time] 14.2 s 11.7-14.9 [facility] RBC Auto (Bld) [#/Vol]Ordere d By: Marco Hoffman on 07-08-2024 RBC (Bld) [#/Vol] 2.43 10*6/uL Low 4.6-6.2 [facility] Serum creatinine measurement (mass/volume)Ordered By: Marco Hoffman on 07-08-2024 Creatinine [Mass/Vol] 1.28 mg/dL High 0.70-1.20 [facility] Serum globulin measurementOr dered By: Marco Hoffman on 07-08-2024 Globulin (S) [Mass/Vol] 2.7 g/dL 2.2-4.2 [facility] Serum glucose measurement (m ass/volume)Ordered By: Marco Hoffman on 07-08-2024 Glucose [Mass/Vol] 164 mg/dL High 70-99 [facility] Serum or plasma alanine barber otransferase (ALT) measurementOrdered By: Marco Hoffman on 07-08-2024 ALT [Catalytic activity/Vol] 38 U/L <47 [facility] Serum or plasma albumin yocasta urement (mass/volume)Ordered By: Marco Hoffman on 07-08-2024 Albumin [Mass/Vol] 3.4 g/dL 3.4-4.8 [facility] Serum or plasma albumin/glob ulin mass ratioOrdered By: Marco Hoffman on 07-08-2024 Albumin/Globulin [Mass ratio] 1.3 {ratio} 0.9-2.4 [facility] Serum or plasma alkaline justin sphatase measurementOrdered By: Marco Hoffman on 07-08-2024 ALP [Catalytic activity/Vol] 122 U/L 40-129 [facility] Serum or plasma calcium yocasta urement (mass/volume)Ordered By: Marco Hoffman on 07-08-2024 Calcium [Mass/Vol] 8.5 mg/dL 7.6-11.0 [facility] Serum or plasma urea nitroge n measurement (mass/volume)Ordered By: Marco Hoffman on 07-08-2024 Urea nitrogen [Mass/Vol] 39 mg/dL High 4-19 [facility] Sodium levelOrdered By: Marco Hoffman on 07-08-2024 Sodium [Moles/Vol] 144 mmol/L 133-145 [facility] Squamous epithelial cells de tection in urine sediment by light microscopyOrdered By: Marco Hoffman on 07-08-2024 Epithelial cells.squamous LM Ql (Urine sed) 0-5 SEEN /hpf 0-5 [facility] Total proteinOrdered By: Jasmine Hoffman on 07-08-2024 Protein [Mass/Vol] 6.1 g/dL 5.9-8.4 [facility] Urine clarityOrdered By: Jasmine Hoffman on 07-08-2024 Clarity (U) Sl. Cloudy Clear [facility] Urine color determinationOrd ered By: Marco Hoffman on 07-08-2024 Color (U) Yellow Yellow [facility] Urine glucose detectionOrder ed By: Marco Hoffman on 07-08-2024 Glucose Ql (U) 1000 mg/dl High Normal [facility] Urine leukocyte esterase det ection by dipstickOrdered By: Marco Hoffman on 07-08-2024 Leukocyte esterase Test strip Ql (U) 500 /ul High Negative [facility] Urine pHOrdered By: Marco campos on 07-08-2024 pH (U) 6.0 [pH] 5.0 - 8.0 [facility] Urine sediment bacteria coun t by microscopy (number/high power field)Ordered By: Marco Hoffman on 07-08-2024 Bacteria LM.HPF (Urine sed) [#/Area] 1 /[HPF] None Seen [facility] Urine sediment yeast count b y microscopy (number/high powered field)Ordered By: Marco Hoffman on 07-08-2024 Yeast LM.HPF (Urine sed) [#/Area] 2 /[HPF] None Seen [facility] Urine specific gravity measu rementOrdered By: Marco Hoffman on 07-08-2024 Specific gravity (U) [Rel density] 1.015 1.002-1.030 [facility] Urine urobilinogen measureme ntOrdered By: Marco Hoffman on 07-08-2024 Urobilinogen Ql (U) Normal mg/dl Normal [facility] White blood cell (WBC) count Ordered By: Marco Hoffman on 07-08-2024 WBC (Bld) [#/Vol] 8.8 10*3/uL 4.4-11.0 [facility] White blood cell countOrdere d By: Marco Hoffman on 07-08-2024 White blood cell count 25-50 SEEN /hpf 0-5 [facility] Anion gap in Serum or Plasma Ordered By: Wilberto Villafuerte on 07-05-2024 Anion gap [Moles/Vol] 10 mmol/L 5-15 [facility] BUN/creatinine ratioOrdered By: Wilberto Villafuerte on 07-05-2024 Urea nitrogen/Creatinine [Mass ratio] 27.0 mg/mg High 10-20 [facility] Blood manual differential co mment interpretation (narrative result)Ordered By: Wilberto Villafuerte on 07-05-2024 Manual differential comment Sohan (Bld) [Interp] See comment [facility] Carbon dioxide, total [Moles /volume] in Central venous bloodOrdered By: Wilberto Villafuerte on 07-05-2024 CO2 [Moles/Vol] 29.6 mmol/L 21.0-32.0 [facility] Chloride assayOrdered By: Anh Villafuerte on 07-05-2024 Chloride [Moles/Vol] 107 mmol/L 98-108 [facility] Erythrocyte distribution wid th ratioOrdered By: Wilberto Villafuerte on 07-05-2024 Erythrocyte distribution width (RBC) [Ratio] 21.1 % High 11.6-14.6 [facility] Erythrocyte distribution wid th standard deviationOrdered By: Wilberto Villafuerte on 07-05-2024 Erythrocyte distribution width (RBC) [Ratio] 75.3 fl High 35.1-43.9 [facility] Glomerular filtration rate ( GFR) estimation/1.73 sq m using serum, plasma, or whole bOrdered By: Wilberto Villafuerte on 07-05-2024 GFR/1.73 sq M.predicted among non-blacks MDRD (S/P/Bld) [Vol rate/Area] 58 mL/min/{1.73_m2} Low >60 [facility] Hematocrit Auto (Bld) [Volum e fraction]Ordered By: Wilberto Villafuerte on 07-05-2024 Hematocrit (Bld) [Volume fraction] 28.2 % Low 40-54 [facility] Hemoglobin measurementOrdere d By: Wilberto Villafuerte on 07-05-2024 Hemoglobin (Bld) [Mass/Vol] 8.4 g/dL Low 13.0-16.5 [facility] MCV (mean corpuscular volume ) determinationOrdered By: Wilberto Villafuerte on 07-05-2024 MCV (RBC) [Entitic vol] 97.6 fL High 80-94 [facility] Mean corpuscular hemoglobin (MCH) determinationOrdered By: Wilberto Villafuerte on 07-05-2024 MCH (RBC) [Entitic mass] 29.1 pg 27.0-32.0 [facility] Platelet countOrdered By: Anh Villafuerte on 07-05-2024 Platelets (Bld) [#/Vol] 263 10*3/uL 150-450 [facility] Potassium measurement (mass/ volume)Ordered By: Wilberto Villafuerte on 07-05-2024 Potassium (Unsp spec) [Mass/Vol] 4.5 mmol/L 3.3-5.1 [facility] RBC Auto (Bld) [#/Vol]Ordere d By: Wilberto Villafuerte on 07-05-2024 RBC (Bld) [#/Vol] 2.89 10*6/uL Low 4.6-6.2 [facility] Serum creatinine measurement (mass/volume)Ordered By: Wilberto Villafuerte on 07-05-2024 Creatinine [Mass/Vol] 1.29 mg/dL High 0.70-1.20 [facility] Serum glucose measurement (m ass/volume)Ordered By: Wilberto Villafuerte on 07-05-2024 Glucose [Mass/Vol] 158 mg/dL High 70-99 [facility] Serum or plasma calcium yocasta urement (mass/volume)Ordered By: Wilberto Villafuerte on 07-05-2024 Calcium [Mass/Vol] 8.8 mg/dL 7.6-11.0 [facility] Serum or plasma urea nitroge n measurement (mass/volume)Ordered By: Wilberto Villafuerte on 07-05-2024 Urea nitrogen [Mass/Vol] 35 mg/dL High 4-19 [facility] Sodium levelOrdered By: Jacob Villafuerte on 07-05-2024 Sodium [Moles/Vol] 146 mmol/L High 133-145 [facility] Trough vancomycin levelOrder ed By: Wilberto Villafuerte on 07-05-2024 Vancomycin trough [Mass/Vol] 20.4 ug/mL High 5.0-15.0 [facility] White blood cell (WBC) count Ordered By: Wilberto Villafuerte on 07-05-2024 WBC (Bld) [#/Vol] 11.6 10*3/uL High 4.4-11.0 [facility] Anion gap [Moles/Vol]Ordered By: Wilberto Villafuerte on 06-28-2024 Anion gap in Serum or Plasma 8 5-15 [facility] Anion gap in Serum or Plasma Ordered By: Wilberto Villafuerte on 06-28-2024 Anion gap [Moles/Vol] 8 mmol/L 5-15 [facility] BUN/creatinine ratioOrdered By: Wilberto Villafuerte on 06-28-2024 Urea nitrogen/Creatinine [Mass ratio] 33.7 mg/mg High 10-20 [facility] BUN/creatinine ratio 33.7 RATIO High 10-20 [facility] Blood manual differential co mment interpretation (narrative result)Ordered By: Wilberto Villafuerte on 06-28-2024 Manual differential comment Sohan (Bld) [Interp] See comment [facility] Calcium [Mass/Vol]Ordered By : Wilberto Villafuerte on 06-28-2024 Serum or plasma calcium measurement (mass/volume) 8.8 mg/dL 7.6-11.0 [facility] Carbon dioxide, total [Moles /volume] in Central venous bloodOrdered By: Wilberto Villafuerte on 06-28-2024 CO2 [Moles/Vol] 30.4 mmol/L 21.0-32.0 [facility] Carbon dioxide, total [Moles/volume] in Central venous blood 30.4 mmol/L 21.0-32.0 [facility] Chloride assayOrdered By: Anh Villafuerte on 06-28-2024 Chloride [Moles/Vol] 108 mmol/L 98-108 [facility] Chloride assay 108 mmol/L 98-108 [facility] Creatinine [Mass/Vol]Ordered By: Wilberto Villafuerte on 06-28-2024 Serum creatinine measurement (mass/volume) 1.14 mg/dL 0.70-1.20 [facility] Erythrocyte distribution wid th (RBC) [Ratio]Ordered By: Wilberto Villafuerte on 06-28-2024 Erythrocyte distribution width ratio 20.7 % High 11.6-14.6 [facility] Erythrocyte distribution width standard deviation 71.3 fl High 35.1-43.9 [facility] Erythrocyte distribution wid th ratioOrdered By: Wilberto Villafuerte on 06-28-2024 Erythrocyte distribution width (RBC) [Ratio] 20.7 % High 11.6-14.6 [facility] Erythrocyte distribution wid th standard deviationOrdered By: Wilberto Villafuerte on 06-28-2024 Erythrocyte distribution width (RBC) [Ratio] 71.3 fl High 35.1-43.9 [facility] GFR/1.73 sq M.predicted idania g non-blacks MDRD (S/P/Bld) [Vol rate/Area]Ordered By: Wilberto Villafuerte on 06-28-2024 Glomerular filtration rate (GFR) estimation/1.73 sq m using serum, plasma, or whole b 67 >60 [facility] Glomerular filtration rate ( GFR) estimation/1.73 sq m using serum, plasma, or whole bOrdered By: Wilberto Villafuerte on 06-28-2024 GFR/1.73 sq M.predicted among non-blacks MDRD (S/P/Bld) [Vol rate/Area] 67 mL/min/{1.73_m2} >60 [facility] Glucose [Mass/Vol]Ordered By : Wilberto Villafuerte on 06-28-2024 Serum glucose measurement (mass/volume) 112 mg/dL High 70-99 [facility] Hematocrit Auto (Bld) [Volum e fraction]Ordered By: Wilberto Villafuerte on 06-28-2024 Hematocrit (Bld) [Volume fraction] 28.7 % Low 40-54 [facility] Automated blood hematocrit (percentage) 28.7 % Low 40-54 [facility] Hemoglobin measurementOrdere d By: Wilberto Villafuerte on 06-28-2024 Hemoglobin (Bld) [Mass/Vol] 8.8 g/dL Low 13.0-16.5 [facility] Hemoglobin measurement 8.8 g/dL Low 13.0-16.5 [facility] MCV (RBC) [Entitic vol]Order ed By: Wilberto Villafuerte on 06-28-2024 MCV (mean corpuscular volume) determination 94.7 fL High 80-94 [facility] MCV (mean corpuscular volume ) determinationOrdered By: Wilberto Villafuerte on 06-28-2024 MCV (RBC) [Entitic vol] 94.7 fL High 80-94 [facility] Manual differential comment Sohan (Bld) [Interp]Ordered By: Wilberto Villafuerte on 06-28-2024 Blood manual differential comment interpretation (narrative result) See comment [facility] Mean corpuscular hemoglobin (MCH) determinationOrdered By: Wilberto Villafuerte on 06-28-2024 MCH (RBC) [Entitic mass] 29.0 pg 27.0-32.0 [facility] Mean corpuscular hemoglobin (MCH) determination 29.0 pg 27.0-32.0 [facility] Mean corpuscular hemoglobin concentration (MCHC) determinationOrdered By: Wilberto Villafuerte on 06-28-2024 Mean corpuscular hemoglobin concentration (MCHC) determination 30.7 g/dL Low 32-36 [facility] Mean platelet volume determi nationOrdered By: Wilberto Villafuerte on 06-28-2024 Mean platelet volume determination 11.6 fl 6.2-12.0 [facility] Platelet countOrdered By: Anh Villafuerte on 06-28-2024 Platelets (Bld) [#/Vol] 309 10*3/uL 150-450 [facility] Platelet count 309 K/mm3 150-450 [facility] Potassium (Unsp spec) [Mass/ Vol]Ordered By: Wilberto Villafuerte on 06-28-2024 Potassium measurement (mass/volume) 4.2 mmol/L 3.3-5.1 [facility] Potassium measurement (mass/ volume)Ordered By: Wilberto Villafuerte on 06-28-2024 Potassium (Unsp spec) [Mass/Vol] 4.2 mmol/L 3.3-5.1 [facility] RBC Auto (Bld) [#/Vol]Ordere d By: Wilberto Villafuerte on 06-28-2024 RBC (Bld) [#/Vol] 3.03 10*6/uL Low 4.6-6.2 [facility] Automated blood erythrocyte count 3.03 M/mm3 Low 4.6-6.2 [facility] Serum creatinine measurement (mass/volume)Ordered By: Wilberto Villafuerte on 06-28-2024 Creatinine [Mass/Vol] 1.14 mg/dL 0.70-1.20 [facility] Serum glucose measurement (m ass/volume)Ordered By: Wilberto Villafuerte on 06-28-2024 Glucose [Mass/Vol] 112 mg/dL High 70-99 [facility] Serum or plasma calcium yocasta urement (mass/volume)Ordered By: Wilberto Villafuerte on 06-28-2024 Calcium [Mass/Vol] 8.8 mg/dL 7.6-11.0 [facility] Serum or plasma urea nitroge n measurement (mass/volume)Ordered By: Wilberto Villafuerte on 06-28-2024 Urea nitrogen [Mass/Vol] 38 mg/dL High 4-19 [facility] Sodium levelOrdered By: Jacob Villafuerte on 06-28-2024 Sodium [Moles/Vol] 146 mmol/L High 133-145 [facility] Sodium level 146 mmol/L High 133-145 [facility] Trough vancomycin levelOrder ed By: Wilberto Villafuerte on 06-28-2024 Vancomycin trough [Mass/Vol] 18.5 ug/mL High 5.0-15.0 [facility] Urea nitrogen [Mass/Vol]Orde red By: Wilberto Villafuerte on 06-28-2024 Serum or plasma urea nitrogen measurement (mass/volume) 38 mg/dL High 4-19 [facility] Vancomycin trough [Mass/Vol] Ordered By: Wilberto Villafuerte on 06-28-2024 Trough vancomycin level 18.5 ug/mL High 5.0-15.0 [facility] White blood cell (WBC) count Ordered By: Wilberto Villafuerte on 06-28-2024 WBC (Bld) [#/Vol] 15.6 10*3/uL High 4.4-11.0 [facility] White blood cell (WBC) count 15.6 K/mm3 High 4.4-11.0 [facility] Absolute lymphocyte countOrd ered By: Jordan Ortiz on 06-25-2024 Lymphocytes Auto (Unsp spec) [#/Vol] 0.88 10*3/uL 0.83-4.51 [facility] Absolute neutrophil countOrd ered By: Jordan Ortiz on 06-25-2024 Absolute neutrophil count 5.5 X10^3/uL 2.0-7.7 [facility] Anion gap [Moles/Vol]Ordered By: Jordan Ortiz on 06-25-2024 Anion gap in Serum or Plasma 8 5-15 [facility] Anion gap in Serum or Plasma Ordered By: Jordan Ortiz on 06-25-2024 Anion gap [Moles/Vol] 8 mmol/L 5-15 [facility] Automated lymphocyte count a s percentage of total leukocytesOrdered By: Jordan Ortiz on 06-25-2024 Lymphocytes/100 WBC Auto (Unsp spec) 12.3 % Low 19-41 [facility] BUN/creatinine ratioOrdered By: Jordan Ortiz on 06-25-2024 Urea nitrogen/Creatinine [Mass ratio] 41.4 mg/mg High 10-20 [facility] BUN/creatinine ratio 41.4 RATIO High 10-20 [facility] Basophil percentageOrdered B y: Jordan Ortiz on 06-25-2024 Basophils/100 WBC (Bld) 0.0 % 0-1 [facility] Basophil percentage 0.0 % 0-1 [facility] Blood manual differential co mment interpretation (narrative result)Ordered By: Jordan Ortiz on 06-25-2024 Manual differential comment Sohan (Bld) [Interp] SCANNED [facility] Calcium [Mass/Vol]Ordered By : Jordan Ortiz on 06-25-2024 Serum or plasma calcium measurement (mass/volume) 8.6 mg/dL 7.6-11.0 [facility] Carbon dioxide, total [Moles /volume] in Central venous bloodOrdered By: Jordan Ortiz on 06-25-2024 CO2 [Moles/Vol] 27.1 mmol/L 21.0-32.0 [facility] Carbon dioxide, total [Moles/volume] in Central venous blood 27.1 mmol/L 21.0-32.0 [facility] Chloride assayOrdered By: Nixon Ortiz on 06-25-2024 Chloride [Moles/Vol] 103 mmol/L 98-108 [facility] Chloride assay 103 mmol/L 98-108 [facility] Creatinine [Mass/Vol]Ordered By: Jordan Ortiz on 06-25-2024 Serum creatinine measurement (mass/volume) 1.12 mg/dL 0.70-1.20 [facility] Eosinophil percentageOrdered By: Jordan Ortiz on 06-25-2024 Eosinophils/100 WBC (Bld) 0.3 % 0-5 [facility] Eosinophil percentage 0.3 % 0-5 [facility] Erythrocyte distribution wid th (RBC) [Ratio]Ordered By: Jordan Ortiz on 06-25-2024 Erythrocyte distribution width ratio 20.3 % High 11.6-14.6 [facility] Erythrocyte distribution width standard deviation 69.2 fl High 35.1-43.9 [facility] Erythrocyte distribution wid th ratioOrdered By: Jordan Ortiz on 06-25-2024 Erythrocyte distribution width (RBC) [Ratio] 20.3 % High 11.6-14.6 [facility] Erythrocyte distribution wid th standard deviationOrdered By: Jordan Ortiz on 06-25-2024 Erythrocyte distribution width (RBC) [Ratio] 69.2 fl High 35.1-43.9 [facility] Estimation of creatinine montez aranceOrdered By: Jordan Ortiz on 06-25-2024 Estimation of creatinine clearance 69.29 ml/min 50-250 [facility] GFR/1.73 sq M.predicted idania g non-blacks MDRD (S/P/Bld) [Vol rate/Area]Ordered By: Jordan Ortiz on 06-25-2024 Glomerular filtration rate (GFR) estimation/1.73 sq m using serum, plasma, or whole b 69 >60 [facility] Glomerular filtration rate ( GFR) estimation/1.73 sq m using serum, plasma, or whole bOrdered By: Jordan Ortiz on 06-25-2024 GFR/1.73 sq M.predicted among non-blacks MDRD (S/P/Bld) [Vol rate/Area] 69 mL/min/{1.73_m2} >60 [facility] Glucose [Mass/Vol]Ordered By : Jordan Ortiz on 06-25-2024 Serum glucose measurement (mass/volume) 241 mg/dL High 70-99 [facility] Glucose measurement at bedsi deOrdered By: Jordan Ortiz on 06-25-2024 Glucose [Mass/Vol] 147 mg/dL High 74-106 [facility] Glucose measurement at bedside 147 mg/dL High 74-106 [facility] Hematocrit Auto (Bld) [Volum e fraction]Ordered By: Jordan Ortiz on 06-25-2024 Hematocrit (Bld) [Volume fraction] 24.7 % Low 40-54 [facility] Automated blood hematocrit (percentage) 24.7 % Low 40-54 [facility] Hemoglobin measurementOrdere d By: Jordan Ortiz on 06-25-2024 Hemoglobin (Bld) [Mass/Vol] 7.7 g/dL Low 13.0-16.5 [facility] Hemoglobin measurement 7.7 g/dL Low 13.0-16.5 [facility] Immature granulocytes/100 WB C Auto (Bld)Ordered By: Jordan Ortiz on 06-25-2024 Immature granulocytes/100 WBC (Bld) 1.500 % High 0.0-0.9 [facility] Automated immature granulocyte percentage 1.500 % High 0.0-0.9 [facility] Lymphocytes Auto (Unsp spec) [#/Vol]Ordered By: Jordan Ortiz on 06-25-2024 Absolute lymphocyte count 0.88 X10^3/uL 0.83-4.51 [facility] Lymphocytes/100 WBC Auto (Un sp spec)Ordered By: Jordan Ortiz on 06-25-2024 Automated lymphocyte count as percentage of total leukocytes 12.3 % Low 19-41 [facility] MCV (RBC) [Entitic vol]Order ed By: Jordan Ortiz on 06-25-2024 MCV (mean corpuscular volume) determination 92.2 fL 80-94 [facility] MCV (mean corpuscular volume ) determinationOrdered By: Jordan Ortiz on 06-25-2024 MCV (RBC) [Entitic vol] 92.2 fL 80-94 [facility] Magnesium (Unsp spec) [Mass/ Vol]Ordered By: Janice Mackey on 06-25-2024 Magnesium measurement (mass/volume) 2.0 mg/dL 1.5-2.2 [facility] Magnesium measurement (mass/ volume)Ordered By: Janice Mackey on 06-25-2024 Magnesium (Unsp spec) [Mass/Vol] 2.0 mg/dL 1.5-2.2 [facility] Manual differential comment Sohan (Bld) [Interp]Ordered By: Jordan Ortiz on 06-25-2024 Blood manual differential comment interpretation (narrative result) SCANNED [facility] Mean corpuscular hemoglobin (MCH) determinationOrdered By: Jordan Ortiz on 06-25-2024 MCH (RBC) [Entitic mass] 28.7 pg 27.0-32.0 [facility] Mean corpuscular hemoglobin (MCH) determination 28.7 pg 27.0-32.0 [facility] Mean corpuscular hemoglobin concentration (MCHC) determinationOrdered By: Jordan Ortiz on 06-25-2024 Mean corpuscular hemoglobin concentration (MCHC) determination 31.2 g/dL Low 32-36 [facility] Mean platelet volume determi nationOrdered By: Jordan Ortiz on 06-25-2024 Mean platelet volume determination 11.0 fl 6.2-12.0 [facility] Monocyte percentageOrdered B y: Jordan Ortiz on 06-25-2024 Monocytes/100 WBC (Bld) 8.5 % 0-10 [facility] Monocyte percentage 8.5 % 0-10 [facility] Neutrophil percentageOrdered By: Jordan Ortiz on 06-25-2024 Neutrophils/100 WBC (Bld) 77.4 % High 47-70 [facility] Neutrophil percentage 77.4 % High 47-70 [facility] No Panel InformationOrdered By: Jordan Ortiz on 06-25-2024 2+ [facility] Nucleated red blood cell per centageOrdered By: Jordan Ortiz on 06-25-2024 Nucleated red blood cell percentage 0 % 0-5 [facility] Platelet countOrdered By: Nixon Ortiz on 06-25-2024 Platelets (Bld) [#/Vol] 186 10*3/uL 150-450 [facility] Platelet count 186 K/mm3 150-450 [facility] Potassium (Unsp spec) [Mass/ Vol]Ordered By: Jordan Ortiz on 06-25-2024 Potassium measurement (mass/volume) 4.3 mmol/L 3.3-5.1 [facility] Potassium measurement (mass/ volume)Ordered By: Jordan Ortiz on 06-25-2024 Potassium (Unsp spec) [Mass/Vol] 4.3 mmol/L 3.3-5.1 [facility] RBC Auto (Bld) [#/Vol]Ordere d By: Jordan Ortiz on 06-25-2024 RBC (Bld) [#/Vol] 2.68 10*6/uL Low 4.6-6.2 [facility] Automated blood erythrocyte count 2.68 M/mm3 Low 4.6-6.2 [facility] Serum creatinine measurement (mass/volume)Ordered By: Jordan Ortiz on 06-25-2024 Creatinine [Mass/Vol] 1.12 mg/dL 0.70-1.20 [facility] Serum glucose measurement (m ass/volume)Ordered By: Jordan Ortiz on 06-25-2024 Glucose [Mass/Vol] 241 mg/dL High 70-99 [facility] Serum or plasma calcium yocasta urement (mass/volume)Ordered By: Jordan Ortiz on 06-25-2024 Calcium [Mass/Vol] 8.6 mg/dL 7.6-11.0 [facility] Serum or plasma urea nitroge n measurement (mass/volume)Ordered By: Jordan Ortiz on 06-25-2024 Urea nitrogen [Mass/Vol] 46 mg/dL High 4-19 [facility] Sodium levelOrdered By: Matthias Ortiz on 06-25-2024 Sodium [Moles/Vol] 138 mmol/L 133-145 [facility] Sodium level 138 mmol/L 133-145 [facility] Urea nitrogen [Mass/Vol]Orde red By: Jordan Ortiz on 06-25-2024 Serum or plasma urea nitrogen measurement (mass/volume) 46 mg/dL High 4-19 [facility] White blood cell (WBC) count Ordered By: Jordan Ortiz on 06-25-2024 WBC (Bld) [#/Vol] 7.2 10*3/uL 4.4-11.0 [facility] White blood cell (WBC) count 7.2 K/mm3 4.4-11.0 [facility] Trough vancomycin levelOrder ed By: Wilberto Villafuerte on 06-24-2024 Vancomycin trough [Mass/Vol] 18.8 ug/mL High 5.0-15.0 [facility] Vancomycin trough [Mass/Vol] Ordered By: Wilberto Villafuerte on 06-24-2024 Trough vancomycin level 18.8 ug/mL High 5.0-15.0 [facility] Blood cultureOrdered By: Brock Villafuerte on 06-23-2024 Bacteria identified Cx Nom (Bld) No growth in 5 days. [facility] Blood culture No growth in 5 days. [facility] Macrocytes detectionOrdered By: Jordan Ortiz on 06-23-2024 Macrocytes Ql (Bld) 1+ [facility] Microcytosis evaluation pane lOrdered By: Jordan Ortiz on 06-23-2024 Microcytosis evaluation panel 1+ [facility] Blood cultureOrdered By: Tino Ortiz on 06-22-2024 Bacteria identified Cx Nom (Bld) No growth in 5 days. [facility] Blood culture No growth in 5 days. [facility] Bacteria identified Cx Nom (Bld) No growth in 5 days. [facility] Blood culture No growth in 5 days. [facility] Serum or plasma vancomycin m easurement (mass/volume)Ordered By: Jordan Ortiz on 06-22-2024 Vancomycin [Mass/Vol] 16.3 ug/mL High 0.0-15.0 [facility] Serum phosphorus measurement Ordered By: Jordan Ortiz on 06-22-2024 Serum phosphorus measurement 5.0 mg/dL High 2.7-4.5 [facility] Vancomycin [Mass/Vol]Ordered By: Jordan Ortiz on 06-22-2024 Serum or plasma vancomycin measurement (mass/volume) 16.3 ug/mL High 0.0-15.0 [facility] ALP [Catalytic activity/Vol] Ordered By: Mable Pritchard on 06-21-2024 Serum or plasma alkaline phosphatase measurement 57 U/L 40-129 [facility] ALT [Catalytic activity/Vol] Ordered By: Mable Pritchard on 06-21-2024 Serum or plasma alanine aminotransferase (ALT) measurement 16 U/L <47 [facility] Albumin [Mass/Vol]Ordered By : Mable Pritchard on 06-21-2024 Serum or plasma albumin measurement (mass/volume) 3.3 g/dL Low 3.4-4.8 [facility] Albumin/Globulin [Mass ratio ]Ordered By: Mable Pritchard on 06-21-2024 Serum or plasma albumin/globulin mass ratio 1.1 RATIO 0.9-2.4 [facility] Bilirubin, totalOrdered By: Mable Pritchard on 06-21-2024 Bilirubin [Mass/Vol] 0.78 mg/dL 0.00-1.30 [facility] Bilirubin, total 0.78 mg/dL 0.00-1.30 [facility] Gram stainOrdered By: Anthony Singleton on 06-21-2024 Microscopic observation Gram stain Nom (Unsp spec) [facility] Microbial respiratory cultur eOrdered By: Anthony Singleton on 06-21-2024 Microorganism identified Cx Nom (Unsp spec) Meth. resistant Staph. aureus Abnormal [facility] Microorganism identified Cx Nom (Unsp spec)Ordered By: Anthony Singleton on 06-21-2024 Microbial respiratory culture Meth. resistant Staph. aureus Abnormal [facility] No Panel InformationOrdered By: Mable Pritchard on 06-21-2024 52 U/L High <38 [facility] Ovalocyte detectionOrdered B y: Mable Pritchard on 06-21-2024 Ovalocytes LM Ql (Bld) RARE [facility] Ovalocytes LM Ql (Bld)Ordere d By: Mable Pritchard on 06-21-2024 Ovalocyte detection RARE [facility] Serum globulin measurementOr dered By: Mable Pritchard on 06-21-2024 Globulin (S) [Mass/Vol] 2.9 g/dL 2.2-4.2 [facility] Serum globulin measurement 2.9 g/dL 2.2-4.2 [facility] Serum or plasma alanine barber otransferase (ALT) measurementOrdered By: Mable Pritchard on 06-21-2024 ALT [Catalytic activity/Vol] 16 U/L <47 [facility] Serum or plasma albumin yocasta urement (mass/volume)Ordered By: Mable Pritchard on 06-21-2024 Albumin [Mass/Vol] 3.3 g/dL Low 3.4-4.8 [facility] Serum or plasma albumin/glob ulin mass ratioOrdered By: Mable Pritchard on 06-21-2024 Albumin/Globulin [Mass ratio] 1.1 {ratio} 0.9-2.4 [facility] Serum or plasma alkaline justin sphatase measurementOrdered By: Mable Pritchard on 06-21-2024 ALP [Catalytic activity/Vol] 57 U/L 40-129 [facility] Total proteinOrdered By: Orly Pritchard on 06-21-2024 Protein [Mass/Vol] 6.2 g/dL 5.9-8.4 [facility] Total protein 6.2 g/dL 5.9-8.4 [facility] Toxic granules LM Ql (Bld)Or dered By: Mable Pritchard on 06-21-2024 Toxic leukocyte granulation detection 2+ [facility] Toxic leukocyte granulation detectionOrdered By: Mable Pritchard on 06-21-2024 Toxic granules LM Ql (Bld) 2+ [facility] Activated partial thrombopla stin time (aPTT) in platelet poor plasma by coagulation aOrdered By: Jaydon Driscoll on 06-20-2024 aPTT Coag (PPP) [Time] 21.3 s Low 24.1-36.2 [facility] Arterial patency Wrist arter y --pre arterial punctureOrdered By: Eva Marie on 06-20-2024 Assessment of wrist artery patency prior to arterial puncture Positive [facility] Assessment of wrist artery p atency prior to arterial punctureOrdered By: Eva Marie on 06-20-2024 Arterial patency Wrist artery --pre arterial puncture Positive [facility] Bacteria LM.HPF (Urine sed) [#/Area]Ordered By: Jaydon Driscoll on 06-20-2024 Urine sediment bacteria count by microscopy (number/high power field) 1+ /hpf None Seen [facility] Base excess Calc (BldV) [Mol es/Vol]Ordered By: Eva Marie on 06-20-2024 Blood base excess determination 10 mmol/L High -2-2 [facility] Basophilic stippling LM Ql ( Bld)Ordered By: Jaydon Driscoll on 06-20-2024 Erythrocyte basophilic stippling detection RARE [facility] Bilirubin Test strip Ql (U)O rdered By: Jaydon Driscoll on 06-20-2024 Bilirubin Ql (U) Negative Negative [facility] Blood base excess determinat ionOrdered By: Eva Marie on 06-20-2024 Base excess Calc (BldV) [Moles/Vol] 10 mmol/L High -2-2 [facility] Blood bicarbonate measuremen tOrdered By: Eva Marie on 06-20-2024 HCO3 (Bld) [Moles/Vol] 33.4 mmol/L High 22-26 [facility] Blood bicarbonate measurement 33.4 mmol/L High 22-26 [facility] Blood cultureOrdered By: Magali Driscoll on 06-20-2024 Bacteria identified Cx Nom (Bld) Meth. resistant Staph. aureus Abnormal [facility] Blood culture Meth. resistant Stap h. aureus Abnormal [facility] Blood polychromasia detectio n by light microscopyOrdered By: Jaydon Driscoll on 06-20-2024 Polychromasia LM Ql (Bld) 1+ [facility] Clarity (U)Ordered By: Jaydon Driscoll on 06-20-2024 Urine clarity Clear Clear [facility] Color (U)Ordered By: Jaydon key on 06-20-2024 Urine color determination Yellow Yellow [facility] Determination of fraction of inspired oxygenOrdered By: Eva Marie on 06-20-2024 Determination of fraction of inspired oxygen 4.0 [facility] Erythrocyte basophilic stipp ling detectionOrdered By: Jaydon Driscoll on 06-20-2024 Basophilic stippling LM Ql (Bld) RARE [facility] Glucose Ql (U)Ordered By: Yanelis Driscoll on 06-20-2024 Urine glucose detection 1000 mg/dl High Normal [facility] Influenza virus A and B and SARS-CoV-2 (COVID-19) and Respiratory syncytial virus RNAOrdered By: Jaydon Driscoll on 06-20-2024 SARS-CoV-2 (COVID-19) RNA JUSTIN+probe Ql (Unsp spec) [facility] International normalized rat io (INR) calculationOrdered By: Jaydon Driscoll on 06-20-2024 International normalized ratio (INR) calculation 1.0 [facility] Ketones Test strip Ql (U)Ord ered By: Jaydon Driscoll on 06-20-2024 Ketones Ql (U) Negative Negative [facility] Lactic acid measurementOrder ed By: Jaydon Driscoll on 06-20-2024 Lactic acid measurement 1.1 mmol/L 0.0-2.0 [facility] Leukocyte esterase Test stri p Ql (U)Ordered By: Jaydon Driscoll on 06-20-2024 Urine leukocyte esterase detection by dipstick 25 /ul High Negative [facility] Measurement, pHOrdered By: Gurwinder Marie on 06-20-2024 pH (Unsp spec) 7.46 [pH] High 7.35-7.45 [facility] Microscopic analysis of urin e for red blood cells (RBC)Ordered By: Jaydon Driscoll on 06-20-2024 Microscopic analysis of urine for red blood cells (RBC) 0-5 SEEN /hpf 0-5 [facility] Mucus LM Ql (Urine sed)Order ed By: Jaydon Driscoll on 06-20-2024 Mucus Ql (Urine sed) 0 SEEN /hpf [facility] Mucus detection in urine sediment by light microscopy 0 SEEN /hpf [facility] Natriuretic peptide.B prohor sena N-Terminal [Mass/Vol]Ordered By: Jaydon Driscoll on 06-20-2024 Natriuretic peptide.B prohormone N-Terminal [Mass/volume] in Serum or Plasma 4069 pg/mL High <900 [facility] Natriuretic peptide.B prohor sena N-Terminal [Mass/volume] in Serum or PlasmaOrdered By: Jaydon Driscoll on 06-20-2024 Natriuretic peptide.B prohormone N-Terminal [Mass/Vol] 4069 pg/mL High <900 [facility] Nitrite Test strip Ql (U)Ord ered By: Jaydon Driscoll on 06-20-2024 Nitrite Ql (U) Negative Negative [facility] No Panel InformationOrdered By: Eva Marie on 06-20-2024 ART [facility] L Radial [facility] Not entered [facility] Cannula [facility] Organism identificationOrder ed By: Jaydon Driscoll on 06-20-2024 Microorganism identified Cx Nom (Unsp spec) Meth. resistant Staph. aureus Abnormal [facility] Oxygen saturation measuremen tOrdered By: Eva Marie on 06-20-2024 Oxygen saturation measurement 87 % Low 95-99 [facility] Partial pressure of carbon d ioxide measurementOrdered By: Eva Marie on 06-20-2024 Partial pressure of carbon dioxide measurement 47.0 mmHg High 35-45 [facility] Partial pressure of oxygen m easurementOrdered By: Eva Marie on 06-20-2024 Partial pressure of oxygen measurement 51 mmHG Low 75-100 [facility] Platelet estimateOrdered By: Jaydon Driscoll on 06-20-2024 Platelets LM Ql (Bld) A [facility] Platelets LM Ql (Bld)Ordered By: Jaydon Driscoll on 06-20-2024 Platelet estimate A [facility] Polychromasia LM Ql (Bld)Ord ered By: Jaydon Driscoll on 06-20-2024 Blood polychromasia detection by light microscopy 1+ [facility] Procalcitonin IA [Mass/Vol]O rdered By: Jaydon Driscoll on 06-20-2024 Procalcitonin [Mass/volume] in Serum or Plasma by Immunoassay 0.10 ng/mL <0.11 [facility] Procalcitonin [Mass/volume] in Serum or Plasma by ImmunoassayOrdered By: Jaydon Driscoll on 06-20-2024 Procalcitonin IA [Mass/Vol] 0.10 ng/mL <0.11 [facility] Protein Test strip Ql (U)Ord ered By: Jaydon Driscoll on 06-20-2024 Protein Ql (U) 30 mg/dl High Negative [facility] Urine protein assay by test strip, semi-quantitative 30 mg/dl High Negative [facility] Prothrombin timeOrdered By: Jaydon Driscoll on 06-20-2024 PT Coag (PPP) [Time] 13.4 s 11.7-14.9 [facility] Prothrombin time 13.4 SECONDS 11.7-14.9 [facility] Respiratory pathogens detect ion panel by molecular detection methodOrdered By: Mable Pritchard on 06-20-2024 Respiratory pathogens DNA and RNA panel JUSTIN+probe (Resp) [facility] Specific gravity (U) [Rel de nsity]Ordered By: Jaydon Driscoll on 06-20-2024 Urine specific gravity measurement 1.010 1.002-1.030 [facility] Squamous epithelial cells de tection in urine sediment by light microscopyOrdered By: Jaydon Driscoll on 06-20-2024 Epithelial cells.squamous LM Ql (Urine sed) 0-5 SEEN /hpf 0-5 [facility] Total carbon dioxide measure mentOrdered By: Eva Marie on 06-20-2024 CO2 [Moles/Vol] 35 mmol/L [facility] Total carbon dioxide measurement 35 mmol/L [facility] Transitional cells detection in urine sediment by light microscopyOrdered By: Jaydon Driscoll on 06-20-2024 Transitional cells LM Ql (Urine sed) 0-5 SEEN /hpf 0-5 [facility] Urine Legionella pneumophila antigen detectionOrdered By: Mable Pritchard on 06-20-2024 L. pneumophila Ag Ql (U) [facility] Urine blood detectionOrdered By: Jaydon Driscoll on 06-20-2024 Urine blood detection 10 /ul High Negative [facility] Urine clarityOrdered By: Magali Driscoll on 06-20-2024 Clarity (U) Clear Clear [facility] Urine color determinationOrd ered By: Jaydon Driscoll on 06-20-2024 Color (U) Yellow Yellow [facility] Urine cultureOrdered By: Magali Driscoll on 06-20-2024 Bacteria identified Cx Nom (U) Yeast, not Leisha albicans Abnormal [facility] Urine culture Yeast, not Elisha albicans Abnormal [facility] Urine glucose detectionOrder ed By: Jaydon Driscoll on 06-20-2024 Glucose Ql (U) 1000 mg/dl High Normal [facility] Urine leukocyte esterase det ection by dipstickOrdered By: Jaydon Driscoll on 06-20-2024 Leukocyte esterase Test strip Ql (U) 25 /ul High Negative [facility] Urine pHOrdered By: Jaydon hinson on 06-20-2024 pH (U) 6.5 [pH] 5.0 - 8.0 [facility] Urine sediment bacteria coun t by microscopy (number/high power field)Ordered By: Jaydon Driscoll on 06-20-2024 Bacteria LM.HPF (Urine sed) [#/Area] 1 /[HPF] None Seen [facility] Urine specific gravity measu rementOrdered By: Jaydon Driscoll on 06-20-2024 Specific gravity (U) [Rel density] 1.010 1.002-1.030 [facility] Urine total bilirubin detect ion by test stripOrdered By: Jaydon Driscoll on 06-20-2024 Urine total bilirubin detection by test strip Negative Negative [facility] Urine urobilinogen measureme ntOrdered By: Jaydon Driscoll on 06-20-2024 Urobilinogen Ql (U) Normal mg/dl Normal [facility] Urobilinogen Ql (U)Ordered B y: Jaydon Driscoll on 06-20-2024 Urine urobilinogen measurement Normal mg/dl Normal [facility] White blood cell countOrdere d By: Jaydon Driscoll on 06-20-2024 White blood cell count 10-25 SEEN /hpf 0-5 [facility] White blood cell count 10-25 SEEN /hpf 0-5 [facility] aPTT Coag (PPP) [Time]Ordere d By: Jaydon Driscoll on 06-20-2024 Activated partial thromboplastin time (aPTT) in platelet poor plasma by coagulation a 21.3 Seconds Low 24.1-36.2 [facility] pH (U)Ordered By: Jaydon pollock on 06-20-2024 Urine pH 6.5 5.0 - 8.0 [facility] pH (Unsp spec)Ordered By: Henrique Marie on 06-20-2024 Measurement, pH 7.46 High 7.35-7.45 [facility] ALP [Catalytic activity/Vol] Ordered By: Tobi Zapata on 04-27-2024 Serum or plasma alkaline phosphatase measurement 73 U/L 40-129 [facility] ALT [Catalytic activity/Vol] Ordered By: Tobi Zapata on 04-27-2024 Serum or plasma alanine aminotransferase (ALT) measurement 13 U/L <47 [facility] Absolute lymphocyte countOrd ered By: Tobi Zapata on 04-27-2024 Lymphocytes Auto (Unsp spec) [#/Vol] 1.47 10*3/uL 0.83-4.51 [facility] Absolute neutrophil countOrd ered By: Tobi Zapata on 04-27-2024 Absolute neutrophil count 5.8 X10^3/uL 2.0-7.7 [facility] Albumin [Mass/Vol]Ordered By : Tobi Zapata on 04-27-2024 Serum or plasma albumin measurement (mass/volume) 3.9 g/dL 3.4-4.8 [facility] Albumin/Globulin [Mass ratio ]Ordered By: Tobi Zapata on 04-27-2024 Serum or plasma albumin/globulin mass ratio 1.5 RATIO 0.9-2.4 [facility] Anion gap [Moles/Vol]Ordered By: Tobi Zapata on 04-27-2024 Anion gap in Serum or Plasma 10 5-15 [facility] Anion gap in Serum or Plasma Ordered By: Tobi Zapata on 04-27-2024 Anion gap [Moles/Vol] 10 mmol/L 5-15 [facility] Automated lymphocyte count a s percentage of total leukocytesOrdered By: Tobi Zapata on 04-27-2024 Lymphocytes/100 WBC Auto (Unsp spec) 17.7 % Low 19-41 [facility] BUN/creatinine ratioOrdered By: Tobi Zapata on 04-27-2024 Urea nitrogen/Creatinine [Mass ratio] 17.8 mg/mg 10-20 [facility] BUN/creatinine ratio 17.8 RATIO 10-20 [facility] Basophil percentageOrdered B y: Tobi Zapata on 04-27-2024 Basophils/100 WBC (Bld) 0.4 % 0-1 [facility] Basophil percentage 0.4 % 0-1 [facility] Bilirubin, totalOrdered By: Tobi Zapata on 04-27-2024 Bilirubin [Mass/Vol] 0.42 mg/dL 0.00-1.30 [facility] Bilirubin, total 0.42 mg/dL 0.00-1.30 [facility] Blood polychromasia detectio n by light microscopyOrdered By: Tobi Zapata on 04-27-2024 Polychromasia LM Ql (Bld) 1+ [facility] CRP [Mass/Vol]Ordered By: Fabiana Zapata on 04-27-2024 Serum or plasma C reactive protein measurement (mass/volume) 11.90 mg/L High 0.0-3.0 [facility] Calcium [Mass/Vol]Ordered By : Tobi Zapata on 04-27-2024 Serum or plasma calcium measurement (mass/volume) 8.8 mg/dL 7.6-11.0 [facility] Calculated total iron bindin g capacityOrdered By: Tobi Zapata on 04-27-2024 Calculated total iron binding capacity 252 ug/dL 250-450 [facility] Carbon dioxide, total [Moles /volume] in Central venous bloodOrdered By: Tobi Zapata on 04-27-2024 CO2 [Moles/Vol] 32.7 mmol/L High 21.0-32.0 [facility] Carbon dioxide, total [Moles/volume] in Central venous blood 32.7 mmol/L High 21.0-32.0 [facility] Chloride assayOrdered By: Fabiana Zapata on 04-27-2024 Chloride [Moles/Vol] 102 mmol/L 98-108 [facility] Chloride assay 102 mmol/L 98-108 [facility] Cobalamin (Vitamin B12) [Mas s/Vol]Ordered By: Tobi Zapata on 04-27-2024 Vitamin B12 ser/plas 767 pg/mL 180-914 [facility] Creatinine [Mass/Vol]Ordered By: Tobi Zapata on 04-27-2024 Serum creatinine measurement (mass/volume) 1.38 mg/dL High 0.70-1.20 [facility] ESR (Bld) [Velocity]Ordered By: Tobi Zapata on 04-27-2024 Erythrocyte sedimentation rate 25 mm/hr High 0-20 [facility] Eosinophil percentageOrdered By: Tobi Zapata on 04-27-2024 Eosinophils/100 WBC (Bld) 3.3 % 0-5 [facility] Eosinophil percentage 3.3 % 0-5 [facility] Erythrocyte distribution wid th (RBC) [Ratio]Ordered By: Tobi Zapata on 04-27-2024 Erythrocyte distribution width ratio 18.6 % High 11.6-14.6 [facility] Erythrocyte distribution width standard deviation 60.6 fl High 35.1-43.9 [facility] Erythrocyte distribution wid th ratioOrdered By: Tobi Zapata on 04-27-2024 Erythrocyte distribution width (RBC) [Ratio] 18.6 % High 11.6-14.6 [facility] Erythrocyte distribution wid th standard deviationOrdered By: Tobi Zapata on 04-27-2024 Erythrocyte distribution width (RBC) [Ratio] 60.6 fl High 35.1-43.9 [facility] Erythrocyte sedimentation ra teOrdered By: Tobi Zapata on 04-27-2024 ESR (Bld) [Velocity] 25 mm/h High 0-20 [facility] Erythropoietin (EPO) QnOrder ed By: Tobi Zapata on 04-27-2024 Serum or plasma erythropoietin (EPO) measurement (units/volume) 23.0 mIU/mL High 2.6-18.5 [facility] Estimation of creatinine montez aranceOrdered By: Tobi Zapata on 04-27-2024 Estimation of creatinine clearance 56.53 ml/min 50-250 [facility] Ferritin [Mass/Vol]Ordered B y: Tobi Zapata on 04-27-2024 Serum or plasma ferritin measurement (mass/volume) 80 ng/mL 37-417 [facility] Folate [Mass/Vol]Ordered By: Tobi Zapata on 04-27-2024 Folate [Mass/volume] in Serum or Plasma 7.25 ng/mL 4.60-34.80 [facility] Folate [Mass/volume] in Seru m or PlasmaOrdered By: Tobi Zapata on 04-27-2024 Folate [Mass/Vol] 7.25 ng/mL 4.60-34.80 [facility] GFR/1.73 sq M.predicted idania g non-blacks MDRD (S/P/Bld) [Vol rate/Area]Ordered By: Tobi Zapata on 04-27-2024 Glomerular filtration rate (GFR) estimation/1.73 sq m using serum, plasma, or whole b 54 Low >60 [facility] Glomerular filtration rate ( GFR) estimation/1.73 sq m using serum, plasma, or whole bOrdered By: Tobi Zapata on 04-27-2024 GFR/1.73 sq M.predicted among non-blacks MDRD (S/P/Bld) [Vol rate/Area] 54 mL/min/{1.73_m2} Low >60 [facility] Glucose [Mass/Vol]Ordered By : Tobi Zapata on 04-27-2024 Serum glucose measurement (mass/volume) 144 mg/dL High 70-99 [facility] Hematocrit Auto (Bld) [Volum e fraction]Ordered By: Tobi Zapata on 04-27-2024 Hematocrit (Bld) [Volume fraction] 29.2 % Low 40-54 [facility] Automated blood hematocrit (percentage) 29.2 % Low 40-54 [facility] Hemoglobin (Reticulocytes) [ Entitic mass]Ordered By: Tobi Zapata on 04-27-2024 Reticulocyte hemoglobin equivalent (RET-He) measurement 26.6 pg Low 30-35 [facility] Hemoglobin measurementOrdere d By: Tobi Zapata on 04-27-2024 Hemoglobin (Bld) [Mass/Vol] 8.7 g/dL Low 13.0-16.5 [facility] Hemoglobin measurement 8.7 g/dL Low 13.0-16.5 [facility] Immature granulocytes/100 WB C Auto (Bld)Ordered By: Tobi Zapata on 04-27-2024 Immature granulocytes/100 WBC (Bld) 0.700 % 0.0-0.9 [facility] Automated immature granulocyte percentage 0.700 % 0.0-0.9 [facility] Immature platelet percentage Ordered By: Tobi Zapata on 04-27-2024 Platelets reticulated/100 platelets Auto (Bld) 3.7 % 1.0-7.9 [facility] Immature reticulocyte fracti onOrdered By: Tobi Zapata on 04-27-2024 Immature reticulocyte fraction 29.90 % High 3.00-15.90 [facility] Iron (Unsp spec) [Mass/Mass] Ordered By: Tobi Zapata on 04-27-2024 Iron measurement (mass/mass) 40 ug/dL Low 65-175 [facility] Iron measurement (mass/mass) Ordered By: Tobi Zapata on 04-27-2024 Iron (Unsp spec) [Mass/Mass] 40 ug/dL Low 65-175 [facility] Iron saturation [Mass fracti on]Ordered By: Tobi Zapata on 04-27-2024 Serum or plasma iron saturation measurement (mass fraction) 15.9 % 15.0-55.0 [facility] Lactate dehydrogenase (LDH) measurementOrdered By: Tobi Zapata on 04-27-2024 Lactate dehydrogenase (LDH) measurement 207 U/L 87-241 [facility] Lymphocytes Auto (Unsp spec) [#/Vol]Ordered By: Tobi Zapata on 04-27-2024 Absolute lymphocyte count 1.47 X10^3/uL 0.83-4.51 [facility] Lymphocytes/100 WBC Auto (Un sp spec)Ordered By: Tobi Zapata on 04-27-2024 Automated lymphocyte count as percentage of total leukocytes 17.7 % Low 19-41 [facility] MCV (RBC) [Entitic vol]Order ed By: Tobi Zapata on 04-27-2024 MCV (mean corpuscular volume) determination 89.0 fL 80-94 [facility] MCV (mean corpuscular volume ) determinationOrdered By: Tobi Zapata on 04-27-2024 MCV (RBC) [Entitic vol] 89.0 fL 80-94 [facility] Magnesium (Unsp spec) [Mass/ Vol]Ordered By: Tobi Zapata on 04-27-2024 Magnesium measurement (mass/volume) 1.9 mg/dL 1.5-2.2 [facility] Magnesium measurement (mass/ volume)Ordered By: Tobi Zapata on 04-27-2024 Magnesium (Unsp spec) [Mass/Vol] 1.9 mg/dL 1.5-2.2 [facility] Mean corpuscular hemoglobin (MCH) determinationOrdered By: Tobi Zapata on 04-27-2024 MCH (RBC) [Entitic mass] 26.5 pg Low 27.0-32.0 [facility] Mean corpuscular hemoglobin (MCH) determination 26.5 pg Low 27.0-32.0 [facility] Mean corpuscular hemoglobin concentration (MCHC) determinationOrdered By: Tobi Zapata on 04-27-2024 Mean corpuscular hemoglobin concentration (MCHC) determination 29.8 g/dL Low 32-36 [facility] Mean platelet volume determi nationOrdered By: Tobi Zapata on 04-27-2024 Mean platelet volume determination 10.3 fl 6.2-12.0 [facility] Monocyte percentageOrdered B y: Tobi Zapata on 04-27-2024 Monocytes/100 WBC (Bld) 7.6 % 0-10 [facility] Monocyte percentage 7.6 % 0-10 [facility] Neutrophil percentageOrdered By: Tobi Zapata on 04-27-2024 Neutrophils/100 WBC (Bld) 70.3 % High 47-70 [facility] Neutrophil percentage 70.3 % High 47-70 [facility] No Panel InformationOrdered By: Tobi Zapata on 04-27-2024 12 U/L <38 [facility] 212 ug/dL Low 228-428 [facility] Nucleated red blood cell per centageOrdered By: Tobi Zapata on 04-27-2024 Nucleated red blood cell percentage 0.5 % 0-5 [facility] Ovalocyte detectionOrdered B y: Tobi Zapata on 04-27-2024 Ovalocytes LM Ql (Bld) 2+ [facility] Ovalocytes LM Ql (Bld)Ordere d By: Tobi Zapata on 04-27-2024 Ovalocyte detection 2+ [facility] Platelet countOrdered By: Fabiana Zapata on 04-27-2024 Platelets (Bld) [#/Vol] 228 10*3/uL 150-450 [facility] Platelet count 228 K/mm3 150-450 [facility] Platelet estimateOrdered By: Tobi Zapata on 04-27-2024 Platelets LM Ql (Bld) a ADEQ [facility] Platelets LM Ql (Bld)Ordered By: Tobi Zapata on 04-27-2024 Platelet estimate a [facility] Platelets reticulated/100 pl atelets Auto (Bld)Ordered By: Tobi Zapata on 04-27-2024 Immature platelet percentage 3.7 % 1.0-7.9 [facility] Polychromasia LM Ql (Bld)Ord ered By: Tobi Zapata on 04-27-2024 Blood polychromasia detection by light microscopy 1+ [facility] Potassium (Unsp spec) [Mass/ Vol]Ordered By: Tobi Zapata on 04-27-2024 Potassium measurement (mass/volume) 4.2 mmol/L 3.3-5.1 [facility] Potassium measurement (mass/ volume)Ordered By: Tobi Zapata on 04-27-2024 Potassium (Unsp spec) [Mass/Vol] 4.2 mmol/L 3.3-5.1 [facility] RBC Auto (Bld) [#/Vol]Ordere d By: Tobi Zapata on 04-27-2024 RBC (Bld) [#/Vol] 3.28 10*6/uL Low 4.6-6.2 [facility] Automated blood erythrocyte count 3.28 M/mm3 Low 4.6-6.2 [facility] Reticulocyte hemoglobin equi valent (RET-He) measurementOrdered By: Tobi Zapata on 04-27-2024 Hemoglobin (Reticulocytes) [Entitic mass] 26.6 pg Low 30-35 [facility] Reticulocytes Auto (Bld) [#/ Vol]Ordered By: Tobi Zapata on 04-27-2024 Reticulocytes/100 RBC (Bld) 1.82 % High 0.5-1.5 [facility] Automated blood reticulocytes count (number/volume) 1.82 % High 0.5-1.5 [facility] Serum creatinine measurement (mass/volume)Ordered By: Tobi Zapata on 04-27-2024 Creatinine [Mass/Vol] 1.38 mg/dL High 0.70-1.20 [facility] Serum globulin measurementOr dered By: Tobi Zapata on 04-27-2024 Globulin (S) [Mass/Vol] 2.5 g/dL 2.2-4.2 [facility] Serum globulin measurement 2.5 g/dL 2.2-4.2 [facility] Serum glucose measurement (m ass/volume)Ordered By: Tobi Zapata on 04-27-2024 Glucose [Mass/Vol] 144 mg/dL High 70-99 [facility] Serum or plasma C reactive p rotein measurement (mass/volume)Ordered By: Tobi Zapata on 04-27-2024 CRP [Mass/Vol] 11.90 mg/L High 0.0-3.0 [facility] Serum or plasma alanine barber otransferase (ALT) measurementOrdered By: Tobi Zapata on 04-27-2024 ALT [Catalytic activity/Vol] 13 U/L <47 [facility] Serum or plasma albumin yocasta urement (mass/volume)Ordered By: Tobi Zapata on 04-27-2024 Albumin [Mass/Vol] 3.9 g/dL 3.4-4.8 [facility] Serum or plasma albumin/glob ulin mass ratioOrdered By: Tobi Zapata on 04-27-2024 Albumin/Globulin [Mass ratio] 1.5 {ratio} 0.9-2.4 [facility] Serum or plasma alkaline justin sphatase measurementOrdered By: Tobi Zapata on 04-27-2024 ALP [Catalytic activity/Vol] 73 U/L 40-129 [facility] Serum or plasma calcium yocasta urement (mass/volume)Ordered By: Tobi Zapata on 04-27-2024 Calcium [Mass/Vol] 8.8 mg/dL 7.6-11.0 [facility] Serum or plasma erythropoiet in (EPO) measurement (units/volume)Ordered By: Tobi Zapata on 04-27-2024 Erythropoietin (EPO) Qn 23.0 mIU/mL High 2.6-18.5 [facility] Serum or plasma ferritin vasquez surement (mass/volume)Ordered By: Tobi Zapata on 04-27-2024 Ferritin [Mass/Vol] 80 ng/mL 37-417 [facility] Serum or plasma iron saturat ion measurement (mass fraction)Ordered By: Tobi Zapata on 04-27-2024 Iron saturation [Mass fraction] 15.9 % 15.0-55.0 [facility] Serum or plasma urea nitroge n measurement (mass/volume)Ordered By: Tobi Zapata on 04-27-2024 Urea nitrogen [Mass/Vol] 25 mg/dL High 4-19 [facility] Serum phosphorus measurement Ordered By: Tobi Zapata on 04-27-2024 Serum phosphorus measurement 4.2 mg/dL 2.7-4.5 [facility] Sodium levelOrdered By: Dimas Zapata on 04-27-2024 Sodium [Moles/Vol] 145 mmol/L 133-145 [facility] Sodium level 145 mmol/L 133-145 [facility] Total proteinOrdered By: Mikael Zapata on 04-27-2024 Protein [Mass/Vol] 6.4 g/dL 5.9-8.4 [facility] Total protein 6.4 g/dL 5.9-8.4 [facility] Urea nitrogen [Mass/Vol]Orde red By: Tobi Zapata on 04-27-2024 Serum or plasma urea nitrogen measurement (mass/volume) 25 mg/dL High 4-19 [facility] Vitamin B12 ser/plasOrdered By: Tobi Zapata on 04-27-2024 Cobalamin (Vitamin B12) [Mass/Vol] 767 pg/mL 180-914 [facility] White blood cell (WBC) count Ordered By: Tobi Zapata on 04-27-2024 WBC (Bld) [#/Vol] 8.3 10*3/uL 4.4-11.0 [facility] White blood cell (WBC) count 8.3 K/mm3 4.4-11.0 [facility] Absolute lymphocyte countOrd ered By: Huang Lazcano on 04-08-2024 Lymphocytes Auto (Unsp spec) [#/Vol] 0.44 10*3/uL Low 0.83-4.51 [facility] Absolute neutrophil countOrd ered By: Huang Lazcano on 04-08-2024 Absolute neutrophil count 8.3 X10^3/uL High 2.0-7.7 [facility] Automated lymphocyte count a s percentage of total leukocytesOrdered By: Huang Lazcano on 04-08-2024 Lymphocytes/100 WBC Auto (Unsp spec) 4.7 % Low 19-41 [facility] Basophil percentageOrdered B y: Huang Lazcano on 04-08-2024 Basophils/100 WBC (Bld) 0.1 % 0-1 [facility] Basophil percentage 0.1 % 0-1 [facility] Blood urea nitrogen (BUN)/cr eatinine ratioOrdered By: Huang Lazcano on 04-08-2024 Blood urea nitrogen (BUN)/creatinine ratio 30.6 RATIO High 10-20 [facility] Calcium [Mass/Vol]Ordered By : Huang Lazcano on 04-08-2024 Serum or plasma calcium measurement (mass/volume) 8.5 mg/dL 8.5-10.1 [facility] Carbon dioxide measurementOr dered By: Huang Lazcano on 04-08-2024 CO2 [Moles/Vol] 29.0 mmol/L 21.0-32.0 [facility] Carbon dioxide measurement 29.0 mmol/L 21.0-32.0 [facility] Chloride measurementOrdered By: Huang Lazcano on 04-08-2024 Chloride [Moles/Vol] 110 mmol/L High 98-107 [facility] Chloride measurement 110 mmol/L High 98-107 [facility] Creatinine [Mass/Vol]Ordered By: Huang Lazcano on 04-08-2024 Serum or plasma creatinine measurement (mass/volume) 1.47 mg/dL High 0.70-1.30 [facility] Eosinophil percentageOrdered By: Huang Lazcano on 04-08-2024 Eosinophils/100 WBC (Bld) 0.0 % 0-5 [facility] Eosinophil percentage 0.0 % 0-5 [facility] Erythrocyte distribution wid th (RBC) [Ratio]Ordered By: Huang Lazcano on 04-08-2024 Erythrocyte distribution width ratio 17.1 % High 11.6-14.6 [facility] Erythrocyte distribution width standard deviation 54.2 fl High 35.1-43.9 [facility] Erythrocyte distribution wid th ratioOrdered By: Huang Lazcano on 04-08-2024 Erythrocyte distribution width (RBC) [Ratio] 17.1 % High 11.6-14.6 [facility] Erythrocyte distribution wid th standard deviationOrdered By: Huang Lazcano on 04-08-2024 Erythrocyte distribution width (RBC) [Ratio] 54.2 fl High 35.1-43.9 [facility] Estimated glomerular filtrat ion rate (GFR) AmericanOrdered By: Huang Lazcano on 04-08-2024 Estimated glomerular filtration rate (GFR) 60 mL/min >60 [facility] Estimation of creatinine montez aranceOrdered By: Huang Lazcano on 04-08-2024 Estimation of creatinine clearance 52.92 ml/min [facility] Glomerular filtration rate ( GFR) estimationOrdered By: Huang Lazcano on 04-08-2024 GFR/1.73 sq M.predicted among non-blacks MDRD (S/P/Bld) [Vol rate/Area] 50 mL/min/{1.73_m2} Low >60 [facility] Glomerular filtration rate (GFR) estimation 50 mL/min Low >60 [facility] Glucose measurementOrdered B y: Huang Lazcano on 04-08-2024 Glucose [Mass/Vol] 340 mg/dL High 74-106 [facility] Glucose measurement 340 mg/dL High 74-106 [facility] Glucose measurement at bedsi deOrdered By: Huang Lazcano on 04-08-2024 Glucose [Mass/Vol] 314 mg/dL High 74-106 [facility] Glucose measurement at bedside 314 mg/dL High 74-106 [facility] Hematocrit Auto (Bld) [Volum e fraction]Ordered By: Huang Lazcano on 04-08-2024 Hematocrit (Bld) [Volume fraction] 28.2 % Low 40-54 [facility] Automated blood hematocrit (percentage) 28.2 % Low 40-54 [facility] Hemoglobin measurementOrdere d By: Huang Lazcano on 04-08-2024 Hemoglobin (Bld) [Mass/Vol] 8.6 g/dL Low 13.0-16.5 [facility] Hemoglobin measurement 8.6 g/dL Low 13.0-16.5 [facility] Immature granulocytes/100 WB C Auto (Bld)Ordered By: Huang Lazcano on 04-08-2024 Immature granulocytes/100 WBC (Bld) 1.200 % High 0.0-0.9 [facility] Automated immature granulocyte percentage 1.200 % High 0.0-0.9 [facility] Lymphocytes Auto (Unsp spec) [#/Vol]Ordered By: Huang Lazcano on 04-08-2024 Absolute lymphocyte count 0.44 X10^3/uL Low 0.83-4.51 [facility] Lymphocytes/100 WBC Auto (Un sp spec)Ordered By: Huang Lazcano on 04-08-2024 Automated lymphocyte count as percentage of total leukocytes 4.7 % Low 19-41 [facility] MCV (RBC) [Entitic vol]Order ed By: Huang Lazcano on 04-08-2024 MCV (mean corpuscular volume) determination 87.6 fL 80-94 [facility] MCV (mean corpuscular volume ) determinationOrdered By: Huang Lazcano on 04-08-2024 MCV (RBC) [Entitic vol] 87.6 fL 80-94 [facility] Mean corpuscular hemoglobin (MCH) determinationOrdered By: Huang Lazcano on 04-08-2024 MCH (RBC) [Entitic mass] 26.7 pg Low 27.0-32.0 [facility] Mean corpuscular hemoglobin (MCH) determination 26.7 pg Low 27.0-32.0 [facility] Mean corpuscular hemoglobin concentration (MCHC) determinationOrdered By: Huang Lazcano on 04-08-2024 Mean corpuscular hemoglobin concentration (MCHC) determination 30.5 g/dL Low 32-36 [facility] Mean platelet volume determi nationOrdered By: Huang Lazcano on 04-08-2024 Mean platelet volume determination 11.3 fl 6.2-12.0 [facility] Monocyte percentageOrdered B y: Huang Lazcano on 04-08-2024 Monocytes/100 WBC (Bld) 5.8 % 0-10 [facility] Monocyte percentage 5.8 % 0-10 [facility] Neutrophil percentageOrdered By: Huang Lazcano on 04-08-2024 Neutrophils/100 WBC (Bld) 88.2 % High 47-70 [facility] Neutrophil percentage 88.2 % High 47-70 [facility] Nucleated red blood cell per centageOrdered By: Huang Lazcano on 04-08-2024 Nucleated red blood cell percentage 0.5 % 0-5 [facility] Platelet countOrdered By: Bessie Lazcano on 04-08-2024 Platelets (Bld) [#/Vol] 308 10*3/uL 150-450 [facility] Platelet count 308 K/mm3 150-450 [facility] Potassium measurementOrdered By: Huang Lazcano on 04-08-2024 Potassium [Moles/Vol] 4.6 mmol/L 3.5-5.1 [facility] Potassium measurement 4.6 mmol/L 3.5-5.1 [facility] RBC Auto (Bld) [#/Vol]Ordere d By: Huang Lazcano on 04-08-2024 RBC (Bld) [#/Vol] 3.22 10*6/uL Low 4.6-6.2 [facility] Automated blood erythrocyte count 3.22 M/mm3 Low 4.6-6.2 [facility] Serum anion gap measurementO rdered By: Huang Lazcano on 04-08-2024 Serum anion gap measurement 4 Low 5-15 [facility] Serum or plasma calcium yocasta urement (mass/volume)Ordered By: Huang Lazcano on 04-08-2024 Calcium [Mass/Vol] 8.5 mg/dL 8.5-10.1 [facility] Serum or plasma creatinine m easurement (mass/volume)Ordered By: Huang Lazcano on 04-08-2024 Creatinine [Mass/Vol] 1.47 mg/dL High 0.70-1.30 [facility] Serum or plasma urea nitroge n measurement (mass/volume)Ordered By: Huang Lazcano on 04-08-2024 Urea nitrogen [Mass/Vol] 45 mg/dL High 7-18 [facility] Sodium levelOrdered By: Anam Lazcano on 04-08-2024 Sodium [Moles/Vol] 143 mmol/L 136-145 [facility] Sodium level 143 mmol/L 136-145 [facility] Urea nitrogen [Mass/Vol]Orde red By: Huang Lazcano on 04-08-2024 Serum or plasma urea nitrogen measurement (mass/volume) 45 mg/dL High 7-18 [facility] White blood cell (WBC) count Ordered By: Huang aLzcano on 04-08-2024 WBC (Bld) [#/Vol] 9.4 10*3/uL 4.4-11.0 [facility] White blood cell (WBC) count 9.4 K/mm3 4.4-11.0 [facility] Gram stainOrdered By: Anthony Singleton on 04-06-2024 Microscopic observation Gram stain Nom (Unsp spec) [facility] HbA1c (Bld) [Mass fraction]O rdered By: Jordan Driscoll on 04-06-2024 Hemoglobin A1c percentage 9.2 % High 3.8-5.6 [facility] Hemoglobin A1c percentageOrd ered By: Jordan Driscoll on 04-06-2024 HbA1c (Bld) [Mass fraction] 9.2 % High 3.8-5.6 [facility] Microbial respiratory cultur eOrdered By: Anthony Singleton on 04-06-2024 Microorganism identified Cx Nom (Unsp spec) Meth. resistant Staph. aureus Abnormal [facility] Microorganism identified Cx Nom (Unsp spec)Ordered By: Anthony Singleton on 04-06-2024 Microbial respiratory culture Meth. resistant Staph. aureus Abnormal [facility] ALP [Catalytic activity/Vol] Ordered By: Malachi Paredes on 04-05-2024 Serum or plasma alkaline phosphatase measurement 69 U/L 45-117 [facility] ALT [Catalytic activity/Vol] Ordered By: Malachi Paredes on 04-05-2024 Serum or plasma alanine aminotransferase (ALT) measurement 12 U/L Low 16-61 [facility] Activated partial thrombopla stin time (aPTT) in platelet poor plasma by coagulation aOrdered By: Malachi Paredes on 04-05-2024 aPTT Coag (PPP) [Time] 25.4 s 24.1-36.2 [facility] Albumin [Mass/Vol]Ordered By : Malachi Paredes on 04-05-2024 Serum or plasma albumin measurement (mass/volume) 3.1 g/dL Low 3.2-5.0 [facility] Albumin to globulin ratioOrd ered By: Malachi Paredes on 04-05-2024 Albumin to globulin ratio 0.8 RATIO Low 0.9-2.4 [facility] BNP (brain natriuretic pepti de measurement)Ordered By: Jordan Driscoll on 04-05-2024 Natriuretic peptide B (Bld) [Mass/Vol] 476.6 pg/mL High 0-100 [facility] BNP (brain natriuretic peptide measurement) 476.6 pg/mL High 0-100 [facility] Bacteria LM.HPF (Urine sed) [#/Area]Ordered By: Malachi Paredes on 04-05-2024 Urine sediment bacteria count by microscopy (number/high power field) 1+ /hpf None Seen [facility] Base excess Calc (BldV) [Mol es/Vol]Ordered By: Jordan Driscoll on 04-05-2024 Venous blood base excess measurement 0 mmol/L -1.0-3.5 [facility] Bilirubin Test strip Ql (U)O rdered By: Malachi Paredes on 04-05-2024 Bilirubin Ql (U) Negative Negative [facility] Bilirubin, totalOrdered By: Malachi Paredes on 04-05-2024 Bilirubin [Mass/Vol] 0.40 mg/dL 0.20-1.00 [facility] Bilirubin, total 0.40 mg/dL 0.20-1.00 [facility] Blood cultureOrdered By: Charlie Paredes on 04-05-2024 Bacteria identified Cx Nom (Bld) No growth in 5 days. [facility] Blood culture No growth in 5 days. [facility] Bacteria identified Cx Nom (Bld) No growth in 5 days. [facility] Blood culture No growth in 5 days. [facility] CO2 (BldV) [Moles/Vol]Ordere d By: Jordan Driscoll on 04-05-2024 CO2 [Moles/Vol] 26 mmol/L 23-33 [facility] Venous blood total carbon dioxide measurement 26 mmol/L 23-33 [facility] CO2 (BldV) [Partial pressure ]Ordered By: Jordan Driscoll on 04-05-2024 Venous blood partial pressure of carbon dioxide measurement 41.2 mmHg 41-51 [facility] Clarity (U)Ordered By: Malachi Paredes on 04-05-2024 Urine clarity Cloudy Clear [facility] Color (U)Ordered By: Malachi Paredes on 04-05-2024 Urine color determination Yellow Yellow [facility] Determination of fraction of inspired oxygenOrdered By: Jordan Driscoll on 04-05-2024 Determination of fraction of inspired oxygen 6.0 [facility] Epithelial cells.squamous LM Ql (Urine sed)Ordered By: Malachi Paredes on 04-05-2024 Squamous epithelial cells detection in urine sediment by light microscopy 0-5 SEEN /hpf 0-5 [facility] Glucose Ql (U)Ordered By: Edi Paredes on 04-05-2024 Urine glucose detection 1000 mg/dl High Normal [facility] Influenza virus A and B and SARS-CoV-2 (COVID-19) and Respiratory syncytial virus RNAOrdered By: Malachi Paredes on 04-05-2024 SARS-CoV-2 (COVID-19) RNA JUSTIN+probe Ql (Unsp spec) [facility] International normalized rat io (INR) calculationOrdered By: Malachi Paredes on 04-05-2024 International normalized ratio (INR) calculation 1.0 [facility] Ketones Test strip Ql (U)Ord ered By: Malachi Paredes on 04-05-2024 Ketones Ql (U) Negative Negative [facility] Lactic acid measurementOrder ed By: Malachi Paredes on 04-05-2024 Lactic acid measurement 1.3 mmol/L 0.4-2.0 [facility] Leukocyte esterase Test stri p Ql (U)Ordered By: Malachi Paredes on 04-05-2024 Urine leukocyte esterase detection by dipstick 500 /ul High Negative [facility] Lower GI hemoglobin IA Ql (S tl)Ordered By: Malachi Paredes on 04-05-2024 Stool gastrointestinal hemoglobin detection by immunologic method Positive Abnormal [facility] Microscopic analysis of urin e for red blood cells (RBC)Ordered By: Malachi Paredes on 04-05-2024 Microscopic analysis of urine for red blood cells (RBC) 5-10 SEEN /hpf 0-5 [facility] Mucus LM Ql (Urine sed)Order ed By: Malachi Paredes on 04-05-2024 Mucus Ql (Urine sed) 0 SEEN /hpf [facility] Mucus detection in urine sediment by light microscopy 0 SEEN /hpf [facility] Nitrite Test strip Ql (U)Ord ered By: Malachi Paredes on 04-05-2024 Nitrite Ql (U) Negative Negative [facility] No Panel InformationOrdered By: Jordan Driscoll on 04-05-2024 LEONEL [facility] Not entered [facility] Cannula [facility] Air bubble in sample [facility] No Panel InformationOrdered By: Malachi Paredes on 04-05-2024 6 U/L Low 15-37 [facility] Oxygen (BldV) [Partial press ure]Ordered By: Jordan Driscoll on 04-05-2024 Venous blood partial pressure of oxygen measurement 138 mmHg High 25-40 [facility] Protein Test strip Ql (U)Ord ered By: Malachi Paredes on 04-05-2024 Protein Ql (U) 30 mg/dl High Negative [facility] Urine protein assay by test strip, semi-quantitative 30 mg/dl High Negative [facility] Prothrombin timeOrdered By: Malachi Paredes on 04-05-2024 PT Coag (PPP) [Time] 13.6 s 11.7-14.9 [facility] Prothrombin time 13.6 SECONDS 11.7-14.9 [facility] Serum globulin measurementOr dered By: Malachi Paredes on 04-05-2024 Globulin (S) [Mass/Vol] 4.0 g/dL 2.2-4.2 [facility] Serum globulin measurement 4.0 g/dL 2.2-4.2 [facility] Serum or plasma alanine barber otransferase (ALT) measurementOrdered By: Malachi Paredes on 04-05-2024 ALT [Catalytic activity/Vol] 12 U/L Low 16-61 [facility] Serum or plasma albumin yocasta urement (mass/volume)Ordered By: Malachi Paredes on 04-05-2024 Albumin [Mass/Vol] 3.1 g/dL Low 3.2-5.0 [facility] Serum or plasma alkaline justin sphatase measurementOrdered By: Malachi Paredes on 04-05-2024 ALP [Catalytic activity/Vol] 69 U/L 45-117 [facility] Specific gravity (U) [Rel de nsity]Ordered By: Malachi Paredes on 04-05-2024 Urine specific gravity measurement 1.015 1.002-1.030 [facility] Squamous epithelial cells de tection in urine sediment by light microscopyOrdered By: Malachi Paredes on 04-05-2024 Epithelial cells.squamous LM Ql (Urine sed) 0-5 SEEN /hpf 0-5 [facility] Stool gastrointestinal hemog lobin detection by immunologic methodOrdered By: Malachi Paredes on 04-05-2024 Lower GI hemoglobin IA Ql (Stl) Positive Abnormal [facility] Total creatine kinase measur ementOrdered By: Jordan Driscoll on 04-05-2024 Total creatine kinase measurement 31 U/L Low 39-308 [facility] Total proteinOrdered By: Charlie Paredes on 04-05-2024 Protein [Mass/Vol] 7.1 g/dL 6.4-8.2 [facility] Total protein 7.1 g/dL 6.4-8.2 [facility] Troponin IOrdered By: Jordan Driscoll on 04-05-2024 Troponin I 33 pg/mL 3.0-78.0 [facility] Troponin I 33 pg/mL 3.0-78.0 [facility] Urine blood detectionOrdered By: Malachi Paredes on 04-05-2024 Urine blood detection 25 /ul High Negative [facility] Urine clarityOrdered By: Charlie Paredes on 04-05-2024 Clarity (U) Cloudy Clear [facility] Urine color determinationOrd ered By: Malachi Paredes on 04-05-2024 Color (U) Yellow Yellow [facility] Urine cultureOrdered By: Charlie Paredes on 04-05-2024 Bacteria identified Cx Nom (U) Positive Abnormal [facility] Urine culture Positive Abnormal [facility] Urine glucose detectionOrder ed By: Malachi Paredes on 04-05-2024 Glucose Ql (U) 1000 mg/dl High Normal [facility] Urine leukocyte esterase det ection by dipstickOrdered By: Malachi Paredes on 04-05-2024 Leukocyte esterase Test strip Ql (U) 500 /ul High Negative [facility] Urine pHOrdered By: Malachi Paredes on 04-05-2024 pH (U) 6.0 [pH] 5.0 - 8.0 [facility] Urine sediment bacteria coun t by microscopy (number/high power field)Ordered By: Malachi Paredes on 04-05-2024 Bacteria LM.HPF (Urine sed) [#/Area] 1 /[HPF] None Seen [facility] Urine sediment renal epithel ial cell count by microscopy (number/high power field)Ordered By: Malachi Paredes on 04-05-2024 Epithelial cells.renal LM.HPF (Urine sed) [#/Area] 5 /[HPF] 0-5 [facility] Urine sediment yeast count b y microscopy (number/high powered field)Ordered By: Malachi Paredes on 04-05-2024 Yeast LM.HPF (Urine sed) [#/Area] 3 /[HPF] None Seen [facility] Urine specific gravity measu rementOrdered By: Malachi Paredes on 04-05-2024 Specific gravity (U) [Rel density] 1.015 1.002-1.030 [facility] Urine total bilirubin detect ion by test stripOrdered By: Malachi Paredes on 04-05-2024 Urine total bilirubin detection by test strip Negative Negative [facility] Urine urobilinogen measureme ntOrdered By: Malachi Paredes on 04-05-2024 Urobilinogen Ql (U) Normal mg/dl Normal [facility] Urobilinogen Ql (U)Ordered B y: Malachi Paredes on 04-05-2024 Urine urobilinogen measurement Normal mg/dl Normal [facility] Venous blood base excess vasquez surementOrdered By: Jordan Driscoll on 04-05-2024 Base excess Calc (BldV) [Moles/Vol] 0 mmol/L -1.0-3.5 [facility] Venous blood bicarbonate vasquez surementOrdered By: Jordan Driscoll on 04-05-2024 HCO3 (Bld) [Moles/Vol] 25 mmol/L - [facility] Venous blood bicarbonate measurement 25 mmol/L [facility] Venous blood oxygen saturati on measurementOrdered By: Jordan Driscoll on 04-05-2024 Venous blood oxygen saturation measurement 99 % High 50-70 [facility] Venous blood pH measurementO rdered By: Jordan Driscoll on 04-05-2024 pH (BldV) 7.39 [pH] 7.32-7.42 [facility] Venous blood partial pressur e of carbon dioxide measurementOrdered By: Jordan Driscoll on 04-05-2024 CO2 (BldV) [Partial pressure] 41.2 mm[Hg] 41-51 [facility] Venous blood partial pressur e of oxygen measurementOrdered By: Jordan Driscoll on 04-05-2024 Oxygen (BldV) [Partial pressure] 138 mm[Hg] High 25-40 [facility] White blood cell countOrdere d By: Malachi Paredes on 02-10-2025 White blood cell count >100 SEEN /hpf 0-5 [facility] White blood cell count >100 SEEN /hpf 0-5 [facility] Yeast LM.HPF (Urine sed) [#/ Area]Ordered By: Malachi Paredes on 04-05-2024 Urine sediment yeast count by microscopy (number/high powered field) 3+ /hpf None Seen [facility] aPTT Coag (PPP) [Time]Ordere d By: Malachi Paredes on 04-05-2024 Activated partial thromboplastin time (aPTT) in platelet poor plasma by coagulation a 25.4 Seconds 24.1-36.2 [facility] pH (BldV)Ordered By: Jordan avelar on 04-05-2024 Venous blood pH measurement 7.39 7.32-7.42 [facility] pH (U)Ordered By: Malachi Paredes on 04-05-2024 Urine pH 6.0 5.0 - 8.0 [facility] Microorganism identified Cx Nom (Unsp spec)Ordered By: GERA Naik on 03-05-2024 Microbial respiratory culture Pseudomonas aeruginosa Abnormal [facility] 14-BT-Rwrpsul DOrdered By: Andre Will on 01-27-2024 20-NU-Epbhlud D 23.0 ng/mL [facility] Estimated glomerular filtrat ion rate (GFR) AmericanOrdered By: Tobi Zapata on 01-27-2024 Estimated glomerular filtration rate (GFR) 60 mL/min >60 [facility] HbA1c (Bld) [Mass fraction]O rdered By: Donna Will on 01-27-2024 Hemoglobin A1c percentage 9.2 % High 3.8-5.6 [facility] Hemoglobin A1c percentageOrd ered By: Donna Will on 01-27-2024 HbA1c (Bld) [Mass fraction] 9.2 % High 3.8-5.6 [facility] Serum or plasma thyroid stim ulating hormone (TSH) measurement (units/volume)Ordered By: Donna Will on 01-27-2024 TSH Qn 1.880 uIU/mL 0.358-3.740 [facility] TSH QnOrdered By: Donna francor on 01-27-2024 Serum or plasma thyroid stimulating hormone (TSH) measurement (units/volume) 1.880 uIU/mL 0.358-3.740 [facility] Absolute lymphocyte countOrd ered By: Tobi Zapata on 06-05-2023 Lymphocytes Auto (Unsp spec) [#/Vol] 1.84 10*3/uL 0.83-4.51 [facility] Activated partial thrombopla stin time (aPTT) in platelet poor plasma by coagulation aOrdered By: Tobi Zapata on 06-05-2023 aPTT Coag (PPP) [Time] 26.2 s 24.1-36.2 [facility] Automated lymphocyte count a s percentage of total leukocytesOrdered By: Tobi Zapata on 06-05-2023 Lymphocytes/100 WBC Auto (Unsp spec) 24.6 % 19-41 [facility] Basophil percentageOrdered B y: Tobi Zapata on 06-05-2023 Basophil percentage 9.2 g/dL 13.0-16.5 [facility] Basophils (Bld) [#/Vol] 7.5 10*3/uL 4.4-11.0 [facility] Basophils (Bld) [#/Vol] 4.6 10*3/uL 2.0-7.7 [facility] Basophils/100 WBC (Bld) 61.9 % 47-70 [facility] Basophils/100 WBC (Bld) 10.2 % 0-10 [facility] Basophils/100 WBC (Bld) 2.0 % 0-5 [facility] Basophils/100 WBC (Bld) 0.4 % 0-1 [facility] Determination of erythrocyte mean corpuscular volume (MCV)Ordered By: Tobi Zapata on 06-05-2023 MCV (RBC) [Entitic vol] 95.9 fL 80-94 [facility] Erythrocyte distribution wid th ratioOrdered By: Tobi Zapata on 06-05-2023 Erythrocyte distribution width (RBC) [Ratio] 17.9 % 11.6-14.6 [facility] Erythrocyte distribution wid th standard deviationOrdered By: Tobi Zapata on 06-05-2023 Erythrocyte distribution width (RBC) [Entitic vol] 61.8 fL 35.1-43.9 [facility] Hematocrit Auto (Bld) [Volum e fraction]Ordered By: Tobi Zapata on 06-05-2023 Hematocrit (Bld) [Volume fraction] 30.5 % 40-54 [facility] Immature granulocytes/100 WB C Auto (Bld)Ordered By: Tobi Zapata on 06-05-2023 Immature granulocytes/100 WBC (Bld) 0.900 % 0.0-0.9 [facility] No Panel InformationOrdered By: Tobi Benny on 06-05-2023 28.9 pg 27.0-32.0 [facility] 30.2 g/dL 32-36 [facility] 242 K/mm3 150-450 [facility] 11.1 fl 6.2-12.0 [facility] 0.4 % 0-5 [facility] 14.1 SECONDS 11.7-14.9 [facility] 1.1 [facility] RBC Auto (Bld) [#/Vol]Ordere d By: Tobi Zapata on 06-05-2023 RBC (Bld) [#/Vol] 3.18 10*6/uL 4.6-6.2 [facility] Absolute lymphocyte countOrd ered By: Tobi Zapata on 05-28-2023 Lymphocytes Auto (Unsp spec) [#/Vol] 1.41 10*3/uL 0.83-4.51 [facility] Automated lymphocyte count a s percentage of total leukocytesOrdered By: Tobi Zapata on 05-28-2023 Lymphocytes/100 WBC Auto (Unsp spec) 19.1 % 19-41 [facility] Basophil percentageOrdered B y: Tobi Zapata on 05-28-2023 Basophil percentage 8.5 g/dL 13.0-16.5 [facility] Basophil percentage 231 mg/dL 74-106 [facility] Basophil percentage 6.5 g/dL 6.4-8.2 [facility] Basophil percentage 0.50 mg/dL 0.20-1.00 [facility] Basophil percentage 141 mmol/L 136-145 [facility] Basophil percentage 4.6 mmol/L 3.5-5.1 [facility] Basophil percentage 107 mmol/L 98-107 [facility] Basophil percentage 201 U/L 87-241 [facility] Basophils (Bld) [#/Vol] 7.4 10*3/uL 4.4-11.0 [facility] Basophils (Bld) [#/Vol] 4.8 10*3/uL 2.0-7.7 [facility] Basophils/100 WBC (Bld) 65.0 % 47-70 [facility] Basophils/100 WBC (Bld) 10.2 % 0-10 [facility] Basophils/100 WBC (Bld) 3.8 % 0-5 [facility] Basophils/100 WBC (Bld) 0.5 % 0-1 [facility] Carcinoembryonic Ag [Mass/Vo l]Ordered By: Tobi Zapata on 05-28-2023 Serum or plasma carcinoembryonic antigen measurement (mass/volume) 3.4 ng/mL 0.0-4.7 [facility] Deamidated gliadin IgA antib lashon assayOrdered By: Tobi Zapata on 05-28-2023 Deamidated gliadin IgA antibody assay 3 units 0-19 [facility] Deamidated gliadin IgG antib lashon assayOrdered By: Tobi Zapata on 05-28-2023 Deamidated gliadin IgG antibody assay 2 units 0-19 [facility] Determination of erythrocyte mean corpuscular volume (MCV)Ordered By: Tobi Zapata on 05-28-2023 MCV (RBC) [Entitic vol] 95.3 fL 80-94 [facility] Endomysial IgA antibody assa yOrdered By: Tobi Zapata on 05-28-2023 Endomysial IgA antibody assay Negative Negative [facility] Erythrocyte distribution wid th ratioOrdered By: Tobi Zapata on 05-28-2023 Erythrocyte distribution width (RBC) [Ratio] 17.4 % 11.6-14.6 [facility] Erythrocyte distribution wid th standard deviationOrdered By: Tobi Zapata on 05-28-2023 Erythrocyte distribution width (RBC) [Entitic vol] 59.6 fL 35.1-43.9 [facility] Erythrocyte sedimentation ra teOrdered By: Tobi Zapata on 05-28-2023 ESR (Bld) [Velocity] 11 mm/h 0-20 [facility] HaptoglobinOrdered By: Stephen Zapata on 05-28-2023 Haptoglobin 150 mg/dL 34-355 [facility] Hematocrit Auto (Bld) [Volum e fraction]Ordered By: Tobi Zapata on 05-28-2023 Hematocrit (Bld) [Volume fraction] 28.5 % 40-54 [facility] Hemoglobin in reticulocytes (mass per reticulocyte)Ordered By: Tobi Zapata on 05-28-2023 Hemoglobin (Reticulocytes) [Entitic mass] 29.1 pg 30-35 [facility] Immature granulocytes/100 WB C Auto (Bld)Ordered By: Tobi Zapata on 05-28-2023 Immature granulocytes/100 WBC (Bld) 1.400 % 0.0-0.9 [facility] Iron measurement (mass/mass) Ordered By: Tobi Zapata on 05-28-2023 Iron (Unsp spec) [Mass/Mass] 43 ug/dL 65-175 [facility] No Panel InformationOrdered By: Tobi Zapata on 05-28-2023 28.4 pg 27.0-32.0 [facility] 29.8 g/dL 32-36 [facility] 210 K/mm3 150-450 [facility] 11.1 fl 6.2-12.0 [facility] 0 % 0-5 [facility] 31.50 % 3.00-15.90 [facility] 40 mL/min >60 [facility] 48 mL/min >60 [facility] 46.00 ml/min [facility] 18.5 RATIO 10-20 [facility] 3.2 g/dL 2.2-4.2 [facility] 1.0 RATIO 0.9-2.4 [facility] 71 U/L 45-117 [facility] 23 U/L 16-61 [facility] 29.0 mmol/L 21.0-32.0 [facility] 7.35 mg/L 0.0-3.0 [facility] 285 ug/dL 250-450 [facility] 28 ng/mL 26-388 [facility] RBC Auto (Bld) [#/Vol]Ordere d By: Tobi Zapata on 05-28-2023 RBC (Bld) [#/Vol] 2.99 10*6/uL 4.6-6.2 [facility] Reticulocytes Auto (Bld) [#/ Vol]Ordered By: Tobi Zapata on 05-28-2023 Reticulocytes/100 RBC (Bld) 3.18 % 0.5-1.5 [facility] Serum immunoglobulin A measu rementOrdered By: Tobi Zapata on 05-28-2023 Serum immunoglobulin A measurement 12 mg/dL Low 61-437 [facility] Serum or plasma calcium yocasta urement (mass/volume)Ordered By: Tobi Zapata on 05-28-2023 Calcium [Mass/Vol] 8.5 mg/dL 8.5-10.1 [facility] Serum or plasma carcinoembry onic antigen measurement (mass/volume)Ordered By: Tobi Zapata on 05-28-2023 Carcinoembryonic Ag [Mass/Vol] 3.4 ng/mL 0.0-4.7 [facility] Serum or plasma creatinine m easurement (mass/volume)Ordered By: Tobi Zapata on 05-28-2023 Creatinine [Mass/Vol] 1.78 mg/dL 0.70-1.30 [facility] Serum or plasma iron saturat ion measurement (mass fraction)Ordered By: Tobi Zapata on 05-28-2023 Iron saturation [Mass fraction] 15.1 % 15.0-55.0 [facility] Serum or plasma urea nitroge n measurement (mass/volume)Ordered By: Tobi Zapata on 05-28-2023 Urea nitrogen [Mass/Vol] 33 mg/dL 7-18 [facility] Serum tissue transglutaminas e (tTG) IgA antibody assay (units/volume)Ordered By: Tobi Zapata on 05-28-2023 Serum tissue transglutaminase (tTG) IgA antibody assay (units/volume) <2 U/mL 0-5 [facility] Serum tissue transglutaminas e IgA antibody assay (units/volume)Ordered By: Tobi Zapata on 05-28-2023 tTG IgA Qn (S) <2 U/mL 0-3 [facility] Thin prep Papanicolaou smear with manual screeningOrdered By: Tobi Zapata on 05-28-2023 Thin prep Papanicolaou smear with manual screening 3.3 g/dL 3.2-5.0 [facility] Thin prep Papanicolaou smear with manual screening 13 U/L 15-37 [facility] Thin prep Papanicolaou smear with manual screening 5 5-15 [facility] No Panel InformationOrdered By: Jennifer Galdamez on 05-12-2023 523.9 pg/mL 0-100 [facility] Absolute lymphocyte countOrd ered By: Donna Will on 05-07-2023 Lymphocytes Auto (Unsp spec) [#/Vol] 0.96 10*3/uL 0.83-4.51 [facility] Automated lymphocyte count a s percentage of total leukocytesOrdered By: Donna Will on 05-07-2023 Lymphocytes/100 WBC Auto (Unsp spec) 10.6 % 19-41 [facility] Basophil percentageOrdered B y: Donna Will on 05-07-2023 Basophil percentage 7.4 g/dL 13.0-16.5 [facility] Basophil percentage 198 mg/dL 74-106 [facility] Basophil percentage 142 mmol/L 136-145 [facility] Basophil percentage 4.3 mmol/L 3.5-5.1 [facility] Basophil percentage 107 mmol/L 98-107 [facility] Basophils (Bld) [#/Vol] 9.1 10*3/uL 4.4-11.0 [facility] Basophils (Bld) [#/Vol] 7.0 10*3/uL 2.0-7.7 [facility] Basophils/100 WBC (Bld) 76.9 % 47-70 [facility] Basophils/100 WBC (Bld) 8.5 % 0-10 [facility] Basophils/100 WBC (Bld) 2.3 % 0-5 [facility] Basophils/100 WBC (Bld) 0.3 % 0-1 [facility] Determination of erythrocyte mean corpuscular volume (MCV)Ordered By: Donna Will on 05-07-2023 MCV (RBC) [Entitic vol] 96.6 fL 80-94 [facility] Erythrocyte distribution wid th ratioOrdered By: Donna Will on 05-07-2023 Erythrocyte distribution width (RBC) [Ratio] 17.1 % 11.6-14.6 [facility] Erythrocyte distribution wid th standard deviationOrdered By: Donna Will on 05-07-2023 Erythrocyte distribution width (RBC) [Entitic vol] 60.3 fL 35.1-43.9 [facility] Hematocrit Auto (Bld) [Volum e fraction]Ordered By: Donna Will on 05-07-2023 Hematocrit (Bld) [Volume fraction] 25.2 % 40-54 [facility] Immature granulocytes/100 WB C Auto (Bld)Ordered By: Donna Will on 05-07-2023 Immature granulocytes/100 WBC (Bld) 1.400 % 0.0-0.9 [facility] No Panel InformationOrdered By: Donna Will on 05-07-2023 28.4 pg 27.0-32.0 [facility] 29.4 g/dL 32-36 [facility] 301 K/mm3 150-450 [facility] 10.9 fl 6.2-12.0 [facility] 0 % 0-5 [facility] 41 mL/min >60 [facility] 50 mL/min >60 [facility] 23.6 RATIO 10-20 [facility] 29.0 mmol/L 21.0-32.0 [facility] RBC Auto (Bld) [#/Vol]Ordere d By: Donna Will on 05-07-2023 RBC (Bld) [#/Vol] 2.61 10*6/uL 4.6-6.2 [facility] Serum or plasma calcium yocasta urement (mass/volume)Ordered By: Donna Will on 05-07-2023 Calcium [Mass/Vol] 8.9 mg/dL 8.5-10.1 [facility] Serum or plasma creatinine m easurement (mass/volume)Ordered By: Donna Will on 05-07-2023 Creatinine [Mass/Vol] 1.74 mg/dL 0.70-1.30 [facility] Serum or plasma urea nitroge n measurement (mass/volume)Ordered By: Donna Will on 05-07-2023 Urea nitrogen [Mass/Vol] 41 mg/dL 7-18 [facility] Thin prep Papanicolaou smear with manual screeningOrdered By: Donna Will on 05-07-2023 Thin prep Papanicolaou smear with manual screening 6 5-15 [facility] Absolute lymphocyte countOrd ered By: Tobi Zapata on 04-25-2023 Lymphocytes Auto (Unsp spec) [#/Vol] 1.48 10*3/uL 0.83-4.51 [facility] Automated lymphocyte count a s percentage of total leukocytesOrdered By: Tobi Zapata on 04-25-2023 Lymphocytes/100 WBC Auto (Unsp spec) 21.7 % 19-41 [facility] Basophil percentageOrdered B y: Tobi Zapata on 04-25-2023 Basophil percentage 7.6 g/dL 13.0-16.5 [facility] Basophil percentage 192 mg/dL 74-106 [facility] Basophil percentage 6.0 g/dL 6.4-8.2 [facility] Basophil percentage 0.30 mg/dL 0.20-1.00 [facility] Basophil percentage 143 mmol/L 136-145 [facility] Basophil percentage 4.1 mmol/L 3.5-5.1 [facility] Basophil percentage 111 mmol/L 98-107 [facility] Basophil percentage 163 U/L 87-241 [facility] Basophils (Bld) [#/Vol] 6.8 10*3/uL 4.4-11.0 [facility] Basophils (Bld) [#/Vol] 4.0 10*3/uL 2.0-7.7 [facility] Basophils/100 WBC (Bld) 59.2 % 47-70 [facility] Basophils/100 WBC (Bld) 11.0 % 0-10 [facility] Basophils/100 WBC (Bld) 6.4 % 0-5 [facility] Basophils/100 WBC (Bld) 0.7 % 0-1 [facility] Determination of erythrocyte mean corpuscular volume (MCV)Ordered By: Tobi Zapata on 04-25-2023 MCV (RBC) [Entitic vol] 94.8 fL 80-94 [facility] Erythrocyte distribution wid th ratioOrdered By: Tobi Zapata on 04-25-2023 Erythrocyte distribution width (RBC) [Ratio] 17.4 % 11.6-14.6 [facility] Erythrocyte distribution wid th standard deviationOrdered By: Tobi Zapata on 04-25-2023 Erythrocyte distribution width (RBC) [Entitic vol] 60.3 fL 35.1-43.9 [facility] Hematocrit Auto (Bld) [Volum e fraction]Ordered By: Tobi Zapata on 04-25-2023 Hematocrit (Bld) [Volume fraction] 25.5 % 40-54 [facility] Immature granulocytes/100 WB C Auto (Bld)Ordered By: Tobi Zapata on 04-25-2023 Immature granulocytes/100 WBC (Bld) 1.000 % 0.0-0.9 [facility] Iron measurement (mass/mass) Ordered By: Tobi Zapata on 04-25-2023 Iron (Unsp spec) [Mass/Mass] 28 ug/dL 65-175 [facility] No Panel InformationOrdered By: Tobi Zapata on 04-25-2023 28.3 pg 27.0-32.0 [facility] 29.8 g/dL 32-36 [facility] 269 K/mm3 150-450 [facility] 11.1 fl 6.2-12.0 [facility] 0 % 0-5 [facility] 53 mL/min >60 [facility] 64 mL/min >60 [facility] 19.3 RATIO 10-20 [facility] 3.3 g/dL 2.2-4.2 [facility] 0.8 RATIO 0.9-2.4 [facility] 96 U/L 45-117 [facility] 13 U/L 16-61 [facility] 31.0 mmol/L 21.0-32.0 [facility] 212 ug/dL 250-450 [facility] 57 ng/mL 26-388 [facility] RBC Auto (Bld) [#/Vol]Ordere d By: Tobi Zapata on 04-25-2023 RBC (Bld) [#/Vol] 2.69 10*6/uL 4.6-6.2 [facility] Serum or plasma calcium yocasta urement (mass/volume)Ordered By: Tobi Zapata on 04-25-2023 Calcium [Mass/Vol] 8.6 mg/dL 8.5-10.1 [facility] Serum or plasma creatinine m easurement (mass/volume)Ordered By: Tobi Zapata on 04-25-2023 Creatinine [Mass/Vol] 1.40 mg/dL 0.70-1.30 [facility] Serum or plasma iron saturat ion measurement (mass fraction)Ordered By: Tobi Zapata on 04-25-2023 Iron saturation [Mass fraction] 13.2 % 15.0-55.0 [facility] Serum or plasma urea nitroge n measurement (mass/volume)Ordered By: Tobi Zapata on 04-25-2023 Urea nitrogen [Mass/Vol] 27 mg/dL 7-18 [facility] Thin prep Papanicolaou smear with manual screeningOrdered By: Tobi Zapata on 04-25-2023 Thin prep Papanicolaou smear with manual screening 2.7 g/dL 3.2-5.0 [facility] [facility] Th[facility] Papanicolaou smear with manual screening 6 U/L 15-37 [facility] Thin prep Papanicolaou smear with manual screening 1 5-15 [facility] Absolute lymphocyte countOrd ered By: Donna Will on 04-17-2023 Lymphocytes Auto (Unsp spec) [#/Vol] 2.00 10*3/uL 0.83-4.51 [facility] Automated lymphocyte count a s percentage of total leukocytesOrdered By: Donna Will on 04-17-2023 Lymphocytes/100 WBC Auto (Unsp spec) 25.3 % 19-41 [facility] Basophil percentageOrdered B y: Donna Will on 04-17-2023 Basophil percentage 7.9 g/dL 13.0-16.5 [facility] Basophils (Bld) [#/Vol] 7.9 10*3/uL 4.4-11.0 [facility] Basophils (Bld) [#/Vol] 4.6 10*3/uL 2.0-7.7 [facility] Basophils/100 WBC (Bld) 58.4 % 47-70 [facility] Basophils/100 WBC (Bld) 9.4 % 0-10 [facility] Basophils/100 WBC (Bld) 4.6 % 0-5 [facility] Basophils/100 WBC (Bld) 0.8 % 0-1 [facility] Determination of erythrocyte mean corpuscular volume (MCV)Ordered By: Donna Will on 04-17-2023 MCV (RBC) [Entitic vol] 96.8 fL 80-94 [facility] Erythrocyte distribution wid th ratioOrdered By: Donna Will on 04-17-2023 Erythrocyte distribution width (RBC) [Ratio] 17.4 % 11.6-14.6 [facility] Erythrocyte distribution wid th standard deviationOrdered By: Donna Will on 04-17-2023 Erythrocyte distribution width (RBC) [Entitic vol] 61.5 fL 35.1-43.9 [facility] Hematocrit Auto (Bld) [Volum e fraction]Ordered By: Donna Will on 04-17-2023 Hematocrit (Bld) [Volume fraction] 26.9 % 40-54 [facility] Immature granulocytes/100 WB C Auto (Bld)Ordered By: Donna Will on 04-17-2023 Immature granulocytes/100 WBC (Bld) 1.500 % 0.0-0.9 [facility] Iron measurement (mass/mass) Ordered By: Donna Will on 04-17-2023 Iron (Unsp spec) [Mass/Mass] 49 ug/dL 65-175 [facility] No Panel InformationOrdered By: Donna Will on 04-17-2023 28.4 pg 27.0-32.0 [facility] 29.4 g/dL 32-36 [facility] 338 K/mm3 150-450 [facility] 10.9 fl 6.2-12.0 [facility] 0 % 0-5 [facility] 238 ug/dL 250-450 [facility] RBC Auto (Bld) [#/Vol]Ordere d By: Donna Will on 04-17-2023 RBC (Bld) [#/Vol] 2.78 10*6/uL 4.6-6.2 [facility] Serum or plasma iron saturat ion measurement (mass fraction)Ordered By: Donna Will on 04-17-2023 Iron saturation [Mass fraction] 20.6 % 15.0-55.0 [facility] Basophil percentageOrdered B y: Donna Will on 04-03-2023 Basophil percentage 146 mg/dL 74-106 [facility] Basophil percentage 141 mmol/L 136-145 [facility] Basophil percentage 4.2 mmol/L 3.5-5.1 [facility] Basophil percentage 108 mmol/L 98-107 [facility] No Panel InformationOrdered By: Donna Will on 04-03-2023 43 mL/min >60 [facility] 52 mL/min >60 [facility] 12.7 RATIO 10-20 [facility] 1.6 mg/dL 1.6-2.6 [facility] 30.0 mmol/L 21.0-32.0 [facility] Serum or plasma calcium yocasta urement (mass/volume)Ordered By: Donna Will on 04-03-2023 Calcium [Mass/Vol] 8.0 mg/dL 8.5-10.1 [facility] Serum or plasma creatinine m easurement (mass/volume)Ordered By: Donna Will on 04-03-2023 Creatinine [Mass/Vol] 1.66 mg/dL 0.70-1.30 [facility] Serum or plasma urea nitroge n measurement (mass/volume)Ordered By: Donna Will on 04-03-2023 Urea nitrogen [Mass/Vol] 21 mg/dL 7-18 [facility] Thin prep Papanicolaou smear with manual screeningOrdered By: Donna Will on 04-03-2023 Thin prep Papanicolaou smear with manual screening 3 5-15 [facility] 36on 03-21-2023 36 S: Pt's calling [facility] Nurse Advice Line regarding prescription problem. B: Pt was discharged today from [facility]. A: states [facility] insurance will not cover pt's insulin that was prescribed at discharge. wants to know why, and also what he can take instead. R: Advised that she has reached the [facility] Nurse Advice Line, and to please call the other number on her card regarding prescriptions. Caller ended call. Reason for Disposition [1] Follow-up call to recent contact AND [2] information only call, no triage required Protocols used: Information Only Call - No [id number] Papanicolaou smear with manual screeningOrdered By: Clive Sharp on 03-21-2023 Thin prep Papanicolaou smear with manual screening 171 mg/dL 74-106 [facility] Absolute lymphocyte countOrd ered By: Anthony Singleton on 03-19-2023 Lymphocytes Auto (Unsp spec) [#/Vol] 1.19 10*3/uL 0.83-4.51 [facility] Automated lymphocyte count a s percentage of total leukocytesOrdered By: Anthony Singleton on 03-19-2023 Lymphocytes/100 WBC Auto (Unsp spec) 11.9 % 19-41 [facility] Basophil percentageOrdered B y: Anthony Singleton on 03-19-2023 Basophil percentage 8.6 g/dL 13.0-16.5 [facility] Basophil percentage 120 mg/dL 74-106 [facility] Basophil percentage 142 mmol/L 136-145 [facility] Basophil percentage 4.1 mmol/L 3.5-5.1 [facility] Basophil percentage 107 mmol/L 98-107 [facility] Basophils (Bld) [#/Vol] 10.0 10*3/uL 4.4-11.0 [facility] Basophils (Bld) [#/Vol] 7.6 10*3/uL 2.0-7.7 [facility] Basophils/100 WBC (Bld) 76.0 % 47-70 [facility] Basophils/100 WBC (Bld) 7.1 % 0-10 [facility] Basophils/100 WBC (Bld) 2.8 % 0-5 [facility] Basophils/100 WBC (Bld) 0.3 % 0-1 [facility] Determination of erythrocyte mean corpuscular volume (MCV)Ordered By: Anthony Singleton on 03-19-2023 MCV (RBC) [Entitic vol] 99.0 fL 80-94 [facility] Erythrocyte distribution wid th ratioOrdered By: Anthony Singleton on 03-19-2023 Erythrocyte distribution width (RBC) [Ratio] 19.3 % 11.6-14.6 [facility] Erythrocyte distribution wid th standard deviationOrdered By: Anthony Singleton on 03-19-2023 Erythrocyte distribution width (RBC) [Entitic vol] 62.5 fL 35.1-43.9 [facility] Hematocrit Auto (Bld) [Volum e fraction]Ordered By: Anthony Singleton on 03-19-2023 Hematocrit (Bld) [Volume fraction] 29.0 % 40-54 [facility] Immature granulocytes/100 WB C Auto (Bld)Ordered By: Anthony Singleton on 03-19-2023 Immature granulocytes/100 WBC (Bld) 1.900 % 0.0-0.9 [facility] No Panel InformationOrdered By: Anthony Singleton on 03-19-2023 29.4 pg 27.0-32.0 [facility] 29.7 g/dL 32-36 [facility] 166 K/mm3 150-450 [facility] 0.6 % 0-5 [facility] 28 mL/min >60 [facility] 34 mL/min >60 [facility] 32.04 ml/min [facility] 30.5 RATIO 10-20 [facility] 32.0 mmol/L 21.0-32.0 [facility] Platelet mean volume Edmundo-Ec ker (Bld) [Entitic vol]Ordered By: Anthony Singleton on 03-19-2023 Platelet mean volume (Bld) [Entitic vol] 11.4 fL 6.2-12.0 [facility] RBC Auto (Bld) [#/Vol]Ordere d By: Anthony Singleton on 03-19-2023 RBC (Bld) [#/Vol] 2.93 10*6/uL 4.6-6.2 [facility] Serum or plasma calcium yocasta urement (mass/volume)Ordered By: Anthony Singleton on 03-19-2023 Calcium [Mass/Vol] 7.7 mg/dL 8.5-10.1 [facility] Serum or plasma creatinine m easurement (mass/volume)Ordered By: Anthony Singleton on 03-19-2023 Creatinine [Mass/Vol] 2.43 mg/dL 0.70-1.30 [facility] Serum or plasma urea nitroge n measurement (mass/volume)Ordered By: Anthony Singleton on 03-19-2023 Urea nitrogen [Mass/Vol] 74 mg/dL 7-18 [facility] Thin prep Papanicolaou smear with manual screeningOrdered By: Anhtony Singleton on 03-19-2023 Thin prep Papanicolaou smear with manual screening 3 5-15 [facility] Anaerobic cultureOrdered By: Nadira Ricks on 03-18-2023 Bacteria identified Anaer cx Nom (Unsp spec) No growth in 5 days. [facility] Bacteria identified Anaer cx Nom (Unsp spec) No growth in 5 days. [facility] Body fluid appearanceOrdered By: Nadira Ricks on 03-18-2023 Appearance (Body fld) CLEAR [facility] Body fluid color determinati onOrdered By: Nadira Ricks on 03-18-2023 Color (Body fld) YELLOW [facility] Body fluid lactate dehydroge nase measurement (enzymatic activity/volume) by pyruvateOrdered By: Nadira Ricks on 03-18-2023 LDH Pyruvate to lactate reaction (Body fld) [Catalytic activity/Vol] 61 Units/L Not Establ. [facility] Body fluid leukocytes count (number/volume)Ordered By: Nadira Ricks on 03-18-2023 WBC (Body fld) [#/Vol] 0.218 10*3/uL [facility] Body fluid lymphocytes/100 l eukocytesOrdered By: Nadira Ricks on 03-18-2023 Lymphocytes/100 WBC (Body fld) 19 % [facility] Body fluid mesothelial cell percentageOrdered By: Nadira Ricks on 03-18-2023 Mesothelial cells/100 WBC (Body fld) 0 % [facility] Body fluid mononuclear cell percentageOrdered By: Nadira Ricks on 03-18-2023 Mononuclear cells/100 WBC (Body fld) 65.6 % [facility] Body fluid other cell count as percentage of leukocytesOrdered By: Nadira Ricks on 03-18-2023 Other cells/100 WBC (Body fld) 1 % [facility] Body fluid polymorphonuclear leukocyte countOrdered By: Nadira Ricks on 03-18-2023 Polymorphonuclear cells (Body fld) [#/Vol] 0.075 10^3/uL [facility] Body fluid protein measureme nt (mass/volume)Ordered By: Nadira Ricks on 03-18-2023 Protein (Body fld) [Mass/Vol] 1.1 g/dL Not Establ. [facility] Body fluid segmented neutrop hils count (number/volume)Ordered By: Nadira Ricks on 03-18-2023 Segmented neutrophils (Body fld) [#/Vol] 60 % [facility] Body fluid total cell countO rdered By: Nadira Ricks on 03-18-2023 Cells Counted Total (Body fld) [#] 0.257 10^3/ul [facility] Cytology report of Body flui d Cyto stainOrdered By: Nadira Ricks on 03-18-2023 Cytology report Cyto stain Doc (Body fld) SEE PATHOLOGY REPORT [facility] Gram stain for investigation of transfusion reactionOrdered By: Nadira Ricks on 03-18-2023 Microscopic observation Gram stain Nom (Unsp spec) [facility] Microscopic observation Gram stain Nom (Unsp spec) [facility] No Panel InformationOrdered By: Nadira Ricks on 03-18-2023 35 /mm3 [facility] 34.4 % [facility] 0.143 10^3/uL [facility] SEE COMMENT [facility] 196 mg/dL 40-70 [facility] Culture exhibits no growth. [facility] Culture exhibits no growth. [facility] Pathologist interpretation o f Body fluid testsOrdered By: Nadira Ricks on 03-18-2023 Pathologist interpretation (Body fld) [Interp] Reviewed [facility] Specimen source identificati on of body fluidOrdered By: Nadira Ricks on 03-18-2023 Specimen source Nom (Body fld) THORACENTESIS [facility] Thin prep Papanicolaou smear with manual screeningOrdered By: Nadira Ricks on 03-18-2023 Thin prep Papanicolaou smear with manual screening 20 % [facility] Basophil percentageOrdered B y: Nadira Ricks on 03-17-2023 Basophil percentage 5.3 g/dL 6.4-8.2 [facility] Basophil percentage 4.1 mg/dL 2.5-4.9 [facility] Basophil percentage 0.60 mg/dL 0.20-1.00 [facility] Basophil percentage 232 U/L 87-241 [facility] No Panel InformationOrdered By: Anthony Singleton on 03-17-2023 Negative Negative [facility] 650.8 pg/mL 0-100 [facility] No Panel InformationOrdered By: Nadira Ricks on 03-17-2023 2.4 g/dL 2.2-4.2 [facility] 1.2 RATIO 0.9-2.4 [facility] 61 U/L 45-117 [facility] 18 U/L 16-61 [facility] 2.1 mg/dL 1.6-2.6 [facility] 984 pg/mL 3.0-78.0 [facility] Serum procalcitonin measurem entOrdered By: Anthony Singleton on 03-17-2023 Procalcitonin [Mass/Vol] 0.28 ng/mL 0.00-0.09 [facility] Thin prep Papanicolaou smear with manual screeningOrdered By: Nadira Ricks on 03-17-2023 Thin prep Papanicolaou smear with manual screening 2.9 g/dL 3.2-5.0 [facility] Thin prep Papanicolaou smear with manual screening 11 U/L 15-37 [facility] Absolute lymphocyte countOrd ered By: Eva Marie on 03-16-2023 Lymphocytes Auto (Unsp spec) [#/Vol] 1.54 10*3/uL 0.83-4.51 [facility] Activated partial thrombopla stin time (aPTT) in platelet poor plasma by coagulation aOrdered By: Eva Marie on 03-16-2023 aPTT Coag (PPP) [Time] 24.5 s 24.1-36.2 [facility] Assessment of wrist artery p atency prior to arterial punctureOrdered By: Nadira Ricks on 03-16-2023 Arterial patency Wrist artery --pre arterial puncture Positive [facility] Automated lymphocyte count a s percentage of total leukocytesOrdered By: Eva Marie on 03-16-2023 Lymphocytes/100 WBC Auto (Unsp spec) 7.3 % 19-41 [facility] Base excessOrdered By: Isak Ricks on 03-16-2023 Base excess Calc (BldV) [Moles/Vol] 5 mmol/L -2-2 [facility] Base excessOrdered By: Rigo Marie on 03-16-2023 Base excess Calc (BldV) [Moles/Vol] 5 mmol/L -1.0-3.5 [facility] Basophil percentageOrdered B y: Nadira Ricks on 03-16-2023 Basophil percentage 32 mmol/L [facility] Basophils/100 WBC (Bld) 97 % 95-[facility] Basophil percentageOrdered B y: Eva Marie on 03-16-2023 Basophil percentage 1.8 mmol/L 0.4-2.0 [facility] Basophil percentage 50-100 SEEN /hpf 0-5 [facility] Basophil percentage 5.0 g/dL 13.0-16.5 [facility] Basophil percentage 817 mg/dL 74-106 [facility] Basophil percentage 5.2 g/dL 6.4-8.2 [facility] Basophil percentage 0.60 mg/dL 0.20-1.00 [facility] Basophil percentage 134 mmol/L 136-145 [facility] Basophil percentage 4.7 mmol/L 3.5-5.1 [facility] Basophil percentage 94 mmol/L 98-107 [facility] Basophil percentage 4.5 mmol/L 0.4-2.0 [facility] Basophils (Bld) [#/Vol] 21.0 10*3/uL 4.4-11.0 [facility] Basophils (Bld) [#/Vol] 17.3 10*3/uL 2.0-7.7 [facility] Basophils/100 WBC (Bld) 82.4 % 47-70 [facility] Basophils/100 WBC (Bld) 5.5 % 0-10 [facility] Basophils/100 WBC (Bld) 0.5 % 0-5 [facility] Basophils/100 WBC (Bld) 0.2 % 0-1 [facility] Bilirubin Test strip Ql (U)O rdered By: Eva Marie on 03-16-2023 Bilirubin Ql (U) Negative Negative [facility] Blood manual differential co mment interpretation (narrative result)Ordered By: Eva Marie on 03-16-2023 Manual differential comment Sohan (Bld) [Interp] SCANNED [facility] CO2 (BldV) [Moles/Vol]Ordere d By: Eva Marie on 03-16-2023 CO2 [Moles/Vol] 31 mmol/L 23-33 [facility] Culture, urineOrdered By: Henrique Marie on 03-16-2023 Culture, urine Positive [facility] Determination of erythrocyte mean corpuscular volume (MCV)Ordered By: Eva Marie on 03-16-2023 MCV (RBC) [Entitic vol] 100.0 fL 80-94 [facility] Erythrocyte distribution wid th ratioOrdered By: Eva Marie on 03-16-2023 Erythrocyte distribution width (RBC) [Ratio] 20.1 % 11.6-14.6 [facility] Erythrocyte distribution wid th standard deviationOrdered By: Eva Marie on 03-16-2023 Erythrocyte distribution width (RBC) [Entitic vol] 63.7 fL 35.1-43.9 [facility] Hematocrit Auto (Bld) [Volum e fraction]Ordered By: Eva Marie on 03-16-2023 Hematocrit (Bld) [Volume fraction] 16.6 % 40-54 [facility] Hypochromatic red blood cell detectionOrdered By: Eva Marie on 03-16-2023 Hypochromia Ql (Bld) 1+ [facility] Immature granulocytes/100 WB C Auto (Bld)Ordered By: Eva Marie on 03-16-2023 Immature granulocytes/100 WBC (Bld) 4.100 % 0.0-0.9 [facility] International normalized rat io (INR) calculationOrdered By: Eva Marie on 03-16-2023 INR Coag (PPP) [Relative time] 1.5 {INR} [facility] Ketones Test strip Ql (U)Ord ered By: Eva Marie on 03-16-2023 Ketones Ql (U) Negative Negative [facility] Laboratory - Chemistry and C hemistry - challengeOrdered By: Nadira Ricks on 03-16-2023 CO2 (Dial fld) [Partial pressure] 48.9 mmHg 35-45 [facility] Macrocytes detectionOrdered By: Eva Marie on 03-16-2023 Macrocytes Ql (Bld) 1+ [facility] Measurement, pHOrdered By: Angela Ricks on 03-16-2023 pH (Unsp spec) 7.40 [pH] 7.35-7.45 [facility] Mucus LM Ql (Urine sed)Order ed By: Eva Marie on 01-21-2024 Mucus Ql (Urine sed) 0 SEEN /hpf [facility] Nitrite Test strip Ql (U)Ord ered By: Eva Marie on 03-16-2023 Nitrite Ql (U) Negative Negative [facility] No Panel InformationOrdered By: Nadira Ricks on 03-16-2023 ART [facility] R Radial [facility] Not entered [facility] Cannula [facility] 4.0 [facility] 30.2 mmol/L 22-26 [facility] No Panel InformationOrdered By: Eva Marie on 03-16-2023 No growth in 5 days. [facility] 0 SEEN /hpf 0-5 [facility] LENOEL [facility] Not entered [facility] Cannula [facility] 4.0 [facility] 30.1 pg 27.0-32.0 [facility] 30.1 g/dL 32-36 [facility] 256 K/mm3 150-450 [facility] 2.1 % 0-5 [facility] 2+ [facility] 18.0 SECONDS 11.7-14.9 [facility] 25 mL/min >60 [facility] 31 mL/min >60 [facility] 29.26 ml/min [facility] 39.8 RATIO 10-20 [facility] 2.4 g/dL 2.2-4.2 [facility] 1.2 RATIO 0.9-2.4 [facility] 37 U/L 39-308 [facility] 435 pg/mL 3.0-78.0 [facility] 61 U/L 45-117 [facility] 19 U/L 16-61 [facility] 30.0 mmol/L 21.0-32.0 [facility] PCO2 venousOrdered By: Rigo Marie on 03-16-2023 CO2 (BldV) [Partial pressure] 49.5 mm[Hg] 41-51 [facility] PO2 venousOrdered By: Eva Marie on 03-16-2023 Oxygen (BldV) [Partial pressure] 35 mm[Hg] 25-40 [facility] Platelet mean volume Edmundo-Ec ker (Bld) [Entitic vol]Ordered By: Eva Marie on 03-16-2023 Platelet mean volume (Bld) [Entitic vol] 12.3 fL 6.2-12.0 [facility] Protein Test strip Ql (U)Ord ered By: Eva Marie on 03-16-2023 Protein Ql (U) 30 mg/dl Negative [facility] RBC Auto (Bld) [#/Vol]Ordere d By: Eva Marie on 03-16-2023 RBC (Bld) [#/Vol] 1.66 10*6/uL 4.6-6.2 [facility] Respiratory measures and Leonel tilator managementOrdered By: Nadira Ricks on 03-16-2023 Oxygen [Partial pressure] in Capillary blood by Transcutaneous O2 monitor 97 mmHG 75-100 [facility] Review by pathologistOrdered By: Eva Marie on 03-16-2023 Pathologist review Sohan (Unsp spec) [Interp] June [facility] Pathologist review Sohan (Unsp spec) [Interp] Reviewed [facility] Serum or plasma acetone yocasta urement (mass/volume)Ordered By: Jordan Driscoll on 03-16-2023 Acetone [Mass/Vol] SMALL NEG [facility] Serum or plasma acetone yocasta urement (mass/volume)Ordered By: Eva Marie on 03-16-2023 Acetone [Mass/Vol] Negative NEG [facility] Serum or plasma calcium yocasta urement (mass/volume)Ordered By: Eva Marie on 03-16-2023 Calcium [Mass/Vol] 8.7 mg/dL 8.5-10.1 [facility] Serum or plasma creatinine m easurement (mass/volume)Ordered By: Eva Marie on 03-16-2023 Creatinine [Mass/Vol] 2.64 mg/dL 0.70-1.30 [facility] Serum or plasma urea nitroge n measurement (mass/volume)Ordered By: Eva Marie on 03-16-2023 Urea nitrogen [Mass/Vol] 105 mg/dL 7-18 [facility] Squamous epithelial cells de tection in urine sediment by light microscopyOrdered By: Eva Marie on 03-16-2023 Epithelial cells.squamous LM Ql (Urine sed) 0-5 SEEN /hpf 0-5 [facility] Stool gastrointestinal hemog lobin detection by immunologic methodOrdered By: Eva Marie on 03-16-2023 Stool gastrointestinal hemoglobin detection by immunologic method Positive [facility] Thin prep Papanicolaou smear with manual screeningOrdered By: Eva Marie on 03-16-2023 Thin prep Papanicolaou smear with manual screening 1+ [facility] Thin prep Papanicolaou smear with manual screening 2.8 g/dL 3.2-5.0 [facility] Thin prep Papanicolaou smear with manual screening 7 U/L 15-37 [facility] Thin prep Papanicolaou smear with manual screening 10 5-15 [facility] Thin prep Papanicolaou smear with manual screening > 500 mg/dL 74-106 [facility] Urine blood detectionOrdered By: Eva Marie on 03-16-2023 RBC Ql (U) 25 /ul Negative [facility] Urine clarityOrdered By: Jailene Marie on 03-16-2023 Clarity (U) Clear Clear [facility] Urine color determinationOrd ered By: Eva Marie on 03-16-2023 Color (U) Yellow Yellow [facility] Urine glucose detectionOrder ed By: Eva Marie on 03-16-2023 Glucose Ql (U) 1000 mg/dl Normal [facility] Urine leukocyte esterase det ection by dipstickOrdered By: Eva Marie on 03-16-2023 Leukocyte esterase Test strip Ql (U) 500 /ul Negative [facility] Urine pHOrdered By: Eva gordon on 03-16-2023 pH (U) 6.5 [pH] 5.0 - 8.0 [facility] Urine sediment bacteria coun t by microscopy (number/high power field)Ordered By: Eva Marie on 03-16-2023 Bacteria LM.HPF (Urine sed) [#/Area] 0 /[HPF] None Seen [facility] Urine specific gravity measu rementOrdered By: Eva Marie on 03-16-2023 Specific gravity (U) [Rel density] 1.010 1.002-1.030 [facility] Urine urobilinogen measureme ntOrdered By: Eva Marie on 03-16-2023 Urobilinogen Ql (U) Normal mg/dl Normal [facility] Venous blood bicarbonate vasquez surementOrdered By: Eva Marie on 03-16-2023 HCO3 (BldCoV) [Moles/Vol] 30 mmol/L 22-26 [facility] Venous blood oxygen saturati on (pure mass fraction)Ordered By: Eva Marie on 03-16-2023 SaO2% (BldV) [Pure mass fraction] 65 % 50-70 [facility] Venous blood pH measurementO rdered By: Eva Marie on 03-16-2023 pH (BldV) 7.39 [pH] 7.32-7.42 [facility] Absolute lymphocyte countOrd ered By: Jordan Ortiz on 03-06-2023 Lymphocytes Auto (Unsp spec) [#/Vol] 0.90 10*3/uL 0.83-4.51 [facility] Basophil percentageOrdered B y: Jordan Ortiz on 03-06-2023 Basophil percentage 199 mg/dL 74-106 [facility] Basophil percentage 2.6 mg/dL 2.5-4.9 [facility] Basophil percentage 142 mmol/L 136-145 [facility] Basophil percentage 4.1 mmol/L 3.5-5.1 [facility] Basophil percentage 103 mmol/L 98-107 [facility] Basophils (Bld) [#/Vol] 10.9 10*3/uL 4.4-11.0 [facility] Basophils (Bld) [#/Vol] 8.7 10*3/uL 2.0-7.7 [facility] Basophils/100 WBC (Bld) 79.8 % 47-70 [facility] Basophils/100 WBC (Bld) 0.3 % 0-5 [facility] Basophils/100 WBC (Bld) 0.1 % 0-1 [facility] Blood erythrocytes count (nu mber/volume)Ordered By: Jordan Ortiz on 03-06-2023 RBC (Bld) [#/Vol] 3.37 10*6/uL 4.6-6.2 [facility] Blood hemoglobin measurement (mass/volume)Ordered By: Jordan Ortiz on 03-06-2023 Hemoglobin (Bld) [Mass/Vol] 10.0 g/dL 13.0-16.5 [facility] Blood lymphocytes/100 leukoc ytesOrdered By: Jordan Ortiz on 03-06-2023 Lymphocytes/100 WBC (Bld) 8.3 % 19-41 [facility] Blood monocytes/100 leukocyt esOrdered By: Jordan Ortiz on 03-06-2023 Monocytes/100 WBC (Bld) 10.8 % 0-10 [facility] Blood platelet mean volumeOr dered By: Jordan Ortiz on 03-06-2023 Platelet mean volume (Bld) [Entitic vol] 11.1 fL 6.2-12.0 [facility] Determination of erythrocyte mean corpuscular volume (MCV)Ordered By: Jordan Ortiz on 03-06-2023 MCV (RBC) [Entitic vol] 92.9 fL 80-94 [facility] Glucose Glucometer (BldC) [M ass/Vol]Ordered By: Jordan Ortiz on 03-06-2023 Glucose [Mass/Vol] 325 mg/dL 74-106 [facility] Hematocrit Auto (Bld) [Volum e fraction]Ordered By: Jordan Ortiz on 03-06-2023 Hematocrit (Bld) [Volume fraction] 31.3 % 40-54 [facility] MCHC Auto (RBC) [Mass/Vol]Or dered By: Jordan Ortiz on 03-06-2023 MCHC (RBC) [Mass/Vol] 31.9 g/dL 32-36 [facility] No Panel InformationOrdered By: Jordan Ortiz on 03-06-2023 29.7 pg 27.0-32.0 [facility] 18.0 % 11.6-14.6 [facility] 62.2 fl 35.1-43.9 [facility] 0.700 % 0.0-0.9 [facility] 0 % 0-5 [facility] 48 mL/min >60 [facility] 58 mL/min >60 [facility] 54.00 ml/min [facility] 35.9 RATIO 10-20 [facility] 34.0 mmol/L 21.0-32.0 [facility] Platelets bldOrdered By: Tino Ortiz on 03-06-2023 Platelets (Bld) [#/Vol] 244 10*3/uL 150-450 [facility] Serum or plasma calcium yocasta urement (mass/volume)Ordered By: Jordan Ortiz on 03-06-2023 Calcium [Mass/Vol] 8.9 mg/dL 8.5-10.1 [facility] Serum or plasma creatinine m easurement (mass/volume)Ordered By: Jordan Ortiz on 03-06-2023 Creatinine [Mass/Vol] 1.53 mg/dL 0.70-1.30 [facility] Serum or plasma urea nitroge n measurement (mass/volume)Ordered By: Jordan Ortiz on 03-06-2023 Urea nitrogen [Mass/Vol] 55 mg/dL 7-18 [facility] Thin prep Papanicolaou smear with manual screeningOrdered By: Jordan Ortiz on 03-06-2023 Thin prep Papanicolaou smear with manual screening 5 5-15 [facility] Basophil percentageOrdered B y: Jordan Ortiz on 03-05-2023 Basophil percentage 6.0 g/dL 6.4-8.2 [facility] Basophil percentage 0.50 mg/dL 0.20-1.00 [facility] No Panel InformationOrdered By: Jordan Ortiz on 03-05-2023 2.9 g/dL 2.2-4.2 [facility] 66 U/L 45-117 [facility] 19 U/L 16-61 [facility] 1.9 mg/dL 1.6-2.6 [facility] Serum or plasma albumin yocasta urement (mass/volume)Ordered By: Jordan Ortiz on 03-05-2023 Albumin [Mass/Vol] 3.1 g/dL 3.2-5.0 [facility] Serum or plasma albumin/glob ulin mass ratioOrdered By: Jordan Ortiz on 03-05-2023 Albumin/Globulin [Mass ratio] 1.1 {ratio} 0.9-2.4 [facility] Thin prep Papanicolaou smear with manual screeningOrdered By: Jordan Ortiz on 03-05-2023 Thin prep Papanicolaou smear with manual screening 9 U/L 15-37 [facility] Blood manual differential co mment interpretation (narrative result)Ordered By: Jordan Ortiz on 03-04-2023 Manual differential comment Sohan (Bld) [Interp] SCANNED [facility] No Panel InformationOrdered By: Jordan Ortiz on 03-03-2023 2+ [facility] 593.7 pg/mL 0-100 [facility] Macrocytes detectionOrdered By: Jordan Ortiz on 03-02-2023 Macrocytes Ql (Bld) 1+ [facility] Thin prep Papanicolaou smear with manual screeningOrdered By: Jordan Ortiz on 03-02-2023 Thin prep Papanicolaou smear with manual screening 1+ [facility] Blood platelet adequacy dete ction by light microscopyOrdered By: Mable Pritchard on 03-01-2023 Platelets LM Ql (Bld) ADEQUATE ADEQ [facility] Hypochromatic red blood cell detectionOrdered By: Mable Pritchard on 03-01-2023 Hypochromia Ql (Bld) 1+ [facility] Lower GI hemoglobin IA Ql (S tl)Ordered By: Mable Pritchard on 03-01-2023 Stool gastrointestinal hemoglobin detection by immunologic method Positive [facility] Stool gastrointestinal hemoglobin detection by immunologic method Positive [facility] No Panel InformationOrdered By: Mable Pritchard on 03-01-2023 551 pg/mL 211-911 [facility] Review by pathologistOrdered By: Mable Pritchard on 03-01-2023 Pathologist review Sohan (Unsp spec) [Interp] Reviewed [facility] Serum or plasma ferritin vasquez surement (mass/volume)Ordered By: Mable Pritchard on 03-01-2023 Ferritin [Mass/Vol] 171 ng/mL 26-388 [facility] Serum or plasma folate measu rement (mass/volume)Ordered By: Mable Pritchard on 03-01-2023 Folate [Mass/Vol] 4.90 ng/mL 3.1-55.4 [facility] Absolute lymphocyte countOrd ered By: Dwain Nowak on 02-28-2023 Lymphocytes Auto (Unsp spec) [#/Vol] 0.91 10*3/uL 0.83-4.51 [facility] Basophil percentageOrdered B y: Dwain Nowak on 02-28-2023 Basophils/100 WBC (Bld) 0.6 % 0-1 [facility] Chloride [Moles/Vol] 112 mmol/L 98-107 [facility] Eosinophils/100 WBC (Bld) 3.9 % 0-5 [facility] Glucose [Mass/Vol] 181 mg/dL 74-106 [facility] Comment on above: Fasting Glucose resu lt greater than or equal to 126 mg/dL suggests DIABETES MELLITUS per A.D.A. criteria. Neutrophils (Bld) [#/Vol] 5.8 10*3/uL 2.0-7.7 [facility] Neutrophils/100 WBC (Bld) 74.3 % 47-70 [facility] Potassium [Moles/Vol] 5.6 mmol/L 3.5-5.1 [facility] Sodium [Moles/Vol] 141 mmol/L 136-145 [facility] WBC (Bld) [#/Vol] 7.8 10*3/uL 4.4-11.0 [facility] Blood erythrocytes count (nu mber/volume)Ordered By: Dwain Nowak on 02-28-2023 RBC (Bld) [#/Vol] 2.33 10*6/uL 4.6-6.2 [facility] Blood hemoglobin measurement (mass/volume)Ordered By: Dwain Nowak on 02-28-2023 Hemoglobin (Bld) [Mass/Vol] 6.7 g/dL 13.0-16.5 [facility] Blood lymphocytes/100 leukoc ytesOrdered By: Dwain Nowak on 02-28-2023 Lymphocytes/100 WBC (Bld) 11.7 % 19-41 [facility] Blood monocytes/100 leukocyt esOrdered By: Dwain Nowak on 02-28-2023 Monocytes/100 WBC (Bld) 8.6 % 0-10 [facility] Blood platelet mean volumeOr dered By: Dwain Nowak on 02-28-2023 Platelet mean volume (Bld) [Entitic vol] 10.7 fL 6.2-12.0 [facility] Determination of erythrocyte mean corpuscular volume (MCV)Ordered By: Dwain Nowak on 02-28-2023 MCV (RBC) [Entitic vol] 100.9 fL 80-94 [facility] Hematocrit Auto (Bld) [Volum e fraction]Ordered By: Dwain Nowak on 02-28-2023 Hematocrit (Bld) [Volume fraction] 23.5 % 40-54 [facility] Hypochromatic red blood cell detectionOrdered By: Dwain Nowak on 02-28-2023 Hypochromia Ql (Bld) 1+ [facility] Iron measurement (mass/mass) Ordered By: Mable Pritchard on 02-28-2023 Iron (Unsp spec) [Mass/Mass] 33 ug/dL 65-175 [facility] Laboratory - Chemistry and C hemistry - challengeOrdered By: Dwain Nowak on 02-28-2023 CO2 [Moles/Vol] 26.0 mmol/L 21.0-32.0 [facility] Urea nitrogen/Creatinine [Mass ratio] 20.0 mg/mg 10-20 [facility] - Hematology and Cell countsOrdered By: Dwain Nowak on 02-28-2023 Anisocytosis Ql (Bld) 2+ [facility] Erythrocyte distribution width (RBC) [Entitic vol] 74.5 fL 35.1-43.9 [facility] Erythrocyte distribution width (RBC) [Ratio] 19.9 % 11.6-14.6 [facility] Immature granulocytes/100 WBC (Bld) 0.900 % 0.0-0.9 [facility] Comment on above: IG% - Immature Granu locytes (promyelocytes, myelocytes and metamyelocytes) > 1% indicates that a LEFT SHIFT is Present. MCH (RBC) [Entitic mass] 28.8 pg 27.0-32.0 [facility] Nucleated RBC/100 WBC (Bld) [Ratio] 0.3 % 0-5 [facility] - Microbiology an d Antimicrobial susceptibilityOrdered By: Dwain Nowak on 02-28-2023 SARS-CoV-2 (COVID-19) RNA JUSTIN+probe Ql (Unsp spec) [facility] MCHC Auto (RBC) [Mass/Vol]Or dered By: Dwain Nowak on 02-28-2023 MCHC (RBC) [Mass/Vol] 28.5 g/dL 32-36 [facility] No Panel InformationOrdered By: Dwain Nowak on 02-28-2023 Estimated GFR (MDRD) Amer 49 mL/min >60 [facility] Comment on above: GFR Calc Estimated GFR (MDRD) Non-Af Amer 41 mL/min >60 [facility] Comment on above: Non- GFR Calc Troponin I High Sensitivity 18 pg/mL 3.0-78.0 [facility] Comment on above: Please Note: New Nicole t Units and Gender Specific Reference Ranges. For more information see Policy Stat Procedure [place] High Sensitivity Troponin (TNIH) and attachments. 18 pg/mL 3.0-78.0 [facility] No Panel InformationOrdered By: Mable Pritchard on 02-28-2023 236 ug/dL 250-450 [facility] Platelets bldOrdered By: Dean Nowak on 02-28-2023 Platelets (Bld) [#/Vol] 278 10*3/uL 150-450 [facility] Respiratory pathogens detect ion panel by molecular detection methodOrdered By: Mable Pritchard on 02-28-2023 Respiratory pathogens DNA and RNA panel JUSTIN+probe (Resp) [facility] Respiratory pathogens DNA and RNA panel JUSTIN+probe (Resp) [facility] Serum or plasma calcium yocasta urement (mass/volume)Ordered By: Dwain Nowak on 02-28-2023 Calcium [Mass/Vol] 8.5 mg/dL 8.5-10.1 [facility] Serum or plasma creatinine m easurement (mass/volume)Ordered By: Dwain Nowak on 02-28-2023 Creatinine [Mass/Vol] 1.75 mg/dL 0.70-1.30 [facility] Comment on above: The validity of the calculated GFR & GFRAA in patients over 70 years has not been determined. Clinical correlation is essential. Serum or plasma iron saturat ion measurement (mass fraction)Ordered By: Mable Pritchard on 02-28-2023 Iron saturation [Mass fraction] 14.0 % 15.0-55.0 [facility] Serum or plasma urea nitroge n measurement (mass/volume)Ordered By: Dwain Nowak on 02-28-2023 Urea nitrogen [Mass/Vol] 35 mg/dL 7-18 [facility] Thin prep Papanicolaou smear with manual screeningOrdered By: Dwain Nowak on 02-28-2023 Thin prep Papanicolaou smear with manual screening 3 5-15 [facility] Stool gastrointestinal hemog lobin detection by immunologic methodOrdered By: Tobi Zapata on 01-30-2023 Lower GI hemoglobin IA Ql (Stl) [facility] Lower GI hemoglobin IA Ql (Stl) [facility] Absolute lymphocyte countOrd ered By: Tobi Zapata on 01-21-2023 Lymphocytes Auto (Unsp spec) [#/Vol] 2.12 10*3/uL 0.83-4.51 [facility] Basophil percentageOrdered B y: Tobi Zapata on 01-21-2023 Basophil percentage 401 mg/dL 74-106 [facility] Basophil percentage 6.7 g/dL 6.4-8.2 [facility] Basophil percentage 0.30 mg/dL 0.20-1.00 [facility] Basophil percentage 137 mmol/L 136-145 [facility] Basophil percentage 4.1 mmol/L 3.5-5.1 [facility] Basophil percentage 98 mmol/L 98-107 [facility] Basophil percentage 156 U/L 87-241 [facility] Basophils (Bld) [#/Vol] 11.0 10*3/uL 4.4-11.0 [facility] Basophils (Bld) [#/Vol] 7.5 10*3/uL 2.0-7.7 [facility] Basophils/100 WBC (Bld) 0.3 % 0-1 [facility] Basophils/100 WBC (Bld) 68.2 % 47-70 [facility] Basophils/100 WBC (Bld) 1.4 % 0-5 [facility] Bilirubin [Mass/Vol] 0.30 mg/dL 0.20-1.00 [facility] Comment on above: For patients on eltr ombopag therapy, use of Dimension [place] TBIL is not recommended. Chloride [Moles/Vol] 98 mmol/L 98-107 [facility] Eosinophils/100 WBC (Bld) 1.4 % 0-5 [facility] Glucose [Mass/Vol] 401 mg/dL 74-106 [facility] Comment on above: Glucose result great er than or equal to 200 mg/dLsuggests DIABETES MELLITUS per A.D.A. criteria. LDH [Catalytic activity/Vol] 156 U/L 87-241 [facility] Neutrophils (Bld) [#/Vol] 7.5 10*3/uL 2.0-7.7 [facility] Neutrophils/100 WBC (Bld) 68.2 % 47-70 [facility] Potassium [Moles/Vol] 4.1 mmol/L 3.5-5.1 [facility] Protein [Mass/Vol] 6.7 g/dL 6.4-8.2 [facility] Sodium [Moles/Vol] 137 mmol/L 136-145 [facility] WBC (Bld) [#/Vol] 11.0 10*3/uL 4.4-11.0 [facility] Blood erythrocytes count (nu mber/volume)Ordered By: Tobi Zapata on 01-21-2023 RBC (Bld) [#/Vol] 2.76 10*6/uL 4.6-6.2 [facility] Blood hemoglobin measurement (mass/volume)Ordered By: Tobi Zapata on 01-21-2023 Hemoglobin (Bld) [Mass/Vol] 7.4 g/dL 13.0-16.5 [facility] Blood lymphocytes/100 leukoc ytesOrdered By: Tobi Zapata on 01-21-2023 Lymphocytes/100 WBC (Bld) 19.3 % 19-41 [facility] Blood monocytes/100 leukocyt esOrdered By: Tobi Zapata on 01-21-2023 Monocytes/100 WBC (Bld) 9.4 % 0-10 [facility] Blood platelet mean volumeOr dered By: Tobi Zapata on 01-21-2023 Platelet mean volume (Bld) [Entitic vol] 10.9 fL 6.2-12.0 [facility] Determination of erythrocyte mean corpuscular volume (MCV)Ordered By: Tobi Zapata on 01-21-2023 MCV (RBC) [Entitic vol] 88.4 fL 80-94 [facility] Hematocrit Auto (Bld) [Volum e fraction]Ordered By: Tobi Zapata on 01-21-2023 Hematocrit (Bld) [Volume fraction] 24.4 % 40-54 [facility] Iron measurement (mass/mass) Ordered By: Tobi Zapata on 01-21-2023 Iron (Unsp spec) [Mass/Mass] 29 ug/dL 65-175 [facility] Laboratory - Chemistry and C hemistry - challengeOrdered By: Tobi Zapata on 01-21-2023 ALP [Catalytic activity/Vol] 75 U/L 45-117 [facility] ALT [Catalytic activity/Vol] 16 U/L 16-61 [facility] CO2 [Moles/Vol] 30.0 mmol/L 21.0-32.0 [facility] Globulin (S) [Mass/Vol] 3.3 g/dL 2.2-4.2 [facility] Urea nitrogen/Creatinine [Mass ratio] 29.5 mg/mg 10-20 [facility] - Hematology and Cell countsOrdered By: Tobi Zapata on 01-21-2023 Erythrocyte distribution width (RBC) [Entitic vol] 50.6 fL 35.1-43.9 [facility] Erythrocyte distribution width (RBC) [Ratio] 15.9 % 11.6-14.6 [facility] Immature granulocytes/100 WBC (Bld) 1.400 % 0.0-0.9 [facility] Comment on above: IG% - Immature Granu locytes (promyelocytes, myelocytes and metamyelocytes) > 1% indicates that a LEFT SHIFT is Present. MCH (RBC) [Entitic mass] 26.8 pg 27.0-32.0 [facility] Nucleated RBC/100 WBC (Bld) [Ratio] 0.2 % 0-5 [facility] MCHC Auto (RBC) [Mass/Vol]Or dered By: Tobi Zapata on 01-21-2023 MCHC (RBC) [Mass/Vol] 30.3 g/dL 32-36 [facility] No Panel InformationOrdered By: Tobi Zapata on 01-21-2023 Estimated Creatinine Clearance Calc 31.85 ml/min [facility] Estimated GFR (MDRD) Amer 38 mL/min >60 [facility] Comment on above: GFR Calc Estimated GFR (MDRD) Non-Af Amer 31 mL/min >60 [facility] Comment on above: Non- GFR Calc Total Iron Binding Capacity 325 ug/dL 250-450 [facility] 26.8 pg 27.0-32.0 [facility] 15.9 % 11.6-14.6 [facility] 50.6 fl 35.1-43.9 [facility] 1.400 % 0.0-0.9 [facility] 0.2 % 0-5 [facility] 31 mL/min >60 [facility] 38 mL/min >60 [facility] 31.85 ml/min [facility] 29.5 RATIO 10-20 [facility] 3.3 g/dL 2.2-4.2 [facility] 75 U/L 45-117 [facility] 16 U/L 16-61 [facility] 30.0 mmol/L 21.0-32.0 [facility] 325 ug/dL 250-450 [facility] Platelets bldOrdered By: Mikael Zapata on 01-21-2023 Platelets (Bld) [#/Vol] 446 10*3/uL 150-450 [facility] Serum or plasma C reactive p rotein measurement (mass/volume)Ordered By: Tobi Zapata on 01-21-2023 CRP [Mass/Vol] 5.97 mg/L 0.0-3.0 [facility] Comment on above: C-Reactive Protein ( CRP) provides useful information for thediagnosis, therapy and monitoring of inflammatory processesand associated diseases. For the evaluation of Relative Riskfor Cardiovascular Disease, a High Sensitivity CRP (HSCRP)should be ordered. Serum or plasma albumin yocasta urement (mass/volume)Ordered By: Tobi Zapata on 01-21-2023 Albumin [Mass/Vol] 3.4 g/dL 3.2-5.0 [facility] Serum or plasma albumin/glob ulin mass ratioOrdered By: Tobi Zapata on 01-21-2023 Albumin/Globulin [Mass ratio] 1.0 {ratio} 0.9-2.4 [facility] Serum or plasma calcium yocasta urement (mass/volume)Ordered By: Tobi Zapata on 01-21-2023 Calcium [Mass/Vol] 8.9 mg/dL 8.5-10.1 [facility] Serum or plasma creatinine m easurement (mass/volume)Ordered By: Tobi Zapata on 01-21-2023 Creatinine [Mass/Vol] 2.20 mg/dL 0.70-1.30 [facility] Comment on above: The validity of the calculated GFR & GFRAA in patients over 70 years has not been determined. Clinical correlation is essential. Serum or plasma ferritin vasquez surement (mass/volume)Ordered By: Tobi Zapata on 01-21-2023 Ferritin [Mass/Vol] 48 ng/mL 26-388 [facility] Serum or plasma iron saturat ion measurement (mass fraction)Ordered By: Tobi Zapata on 01-21-2023 Iron saturation [Mass fraction] 8.9 % 15.0-55.0 [facility] Serum or plasma urea nitroge n measurement (mass/volume)Ordered By: Tobi Zapata on 01-21-2023 Urea nitrogen [Mass/Vol] 65 mg/dL 7-18 [facility] Thin prep Papanicolaou smear with manual screeningOrdered By: Tobi Zapata on 01-21-2023 Thin prep Papanicolaou smear with manual screening < 3 U/L 15-37 [facility] Thin prep Papanicolaou smear with manual screening 9 5-15 [facility] Laboratory - Chemistry and C hemistry - challengeOrdered By: Tobi Zapata on 11-26-2022 Cobalamin (Vitamin B12) [Mass/Vol] 924 pg/mL 211-911 [facility] - Chemistry and C hemistry - challengeOrdered By: Donna Will on 11-26-2022 Magnesium [Mass/Vol] 1.9 mg/dL 1.6-2.6 [facility] No Panel InformationOrdered By: Donna Will on 11-26-2022 1.9 mg/dL 1.6-2.6 [facility] No Panel InformationOrdered By: Tobi Zapata on 11-26-2022 924 pg/mL 211-911 [facility] Serum or plasma folate measu rement (mass/volume)Ordered By: Tobi Zapata on 11-26-2022 Folate [Mass/Vol] 5.30 ng/mL 3.1-55.4 [facility] Absolute lymphocyte countOrd ered By: Jordan Ortiz on 11-17-2022 Lymphocytes Auto (Unsp spec) [#/Vol] 1.51 10*3/uL 0.83-4.51 [facility] Basophil percentageOrdered B y: Jordan Ortiz on 11-17-2022 Basophil percentage 3.8 mg/dL 2.5-4.9 [facility] Basophil percentage 143 mg/dL 74-106 [facility] Basophil percentage 139 mmol/L 136-145 [facility] Basophil percentage 4.2 mmol/L 3.5-5.1 [facility] Basophil percentage 104 mmol/L 98-107 [facility] Basophils (Bld) [#/Vol] 7.8 10*3/uL 4.4-11.0 [facility] Basophils (Bld) [#/Vol] 4.7 10*3/uL 2.0-7.7 [facility] Basophils/100 WBC (Bld) 0.6 % 0-1 [facility] Basophils/100 WBC (Bld) 60.4 % 47-70 [facility] Basophils/100 WBC (Bld) 6.6 % 0-5 [facility] Chloride [Moles/Vol] 104 mmol/L 98-107 [facility] Eosinophils/100 WBC (Bld) 6.6 % 0-5 [facility] Glucose [Mass/Vol] 143 mg/dL 74-106 [facility] Comment on above: Fasting Glucose resu lt greater than or equal to 126 mg/dL suggests DIABETES MELLITUS per A.D.A. criteria. Neutrophils (Bld) [#/Vol] 4.7 10*3/uL 2.0-7.7 [facility] Neutrophils/100 WBC (Bld) 60.4 % 47-70 [facility] Potassium [Moles/Vol] 4.2 mmol/L 3.5-5.1 [facility] Sodium [Moles/Vol] 139 mmol/L 136-145 [facility] WBC (Bld) [#/Vol] 7.8 10*3/uL 4.4-11.0 [facility] Blood erythrocytes count (nu mber/volume)Ordered By: Jordan Ortiz on 11-17-2022 RBC (Bld) [#/Vol] 2.86 10*6/uL 4.6-6.2 [facility] Blood hemoglobin measurement (mass/volume)Ordered By: Jordan Ortiz on 11-17-2022 Hemoglobin (Bld) [Mass/Vol] 8.1 g/dL 13.0-16.5 [facility] Blood lymphocytes/100 leukoc ytesOrdered By: Jordan Ortiz on 11-17-2022 Lymphocytes/100 WBC (Bld) 19.4 % 19-41 [facility] Blood monocytes/100 leukocyt esOrdered By: Jordan Ortiz on 11-17-2022 Monocytes/100 WBC (Bld) 12.0 % 0-10 [facility] Blood platelet mean volumeOr dered By: Jordan Ortiz on 11-17-2022 Platelet mean volume (Bld) [Entitic vol] 10.9 fL 6.2-12.0 [facility] Determination of erythrocyte mean corpuscular volume (MCV)Ordered By: Jordan Ortiz on 11-17-2022 MCV (RBC) [Entitic vol] 94.1 fL 80-94 [facility] Glucose Glucometer (dC) [M ass/Vol]Ordered By: Jordan Ortiz on 11-17-2022 Glucose [Mass/Vol] 217 mg/dL 74-106 [facility] Comment on above: MANAGEMENT OF PATIEN T CARE PER NURSING PROTOCOL Hematocrit Auto (Bld) [Volum e fraction]Ordered By: Jordan Ortiz on 11-17-2022 Hematocrit (Bld) [Volume fraction] 26.9 % 40-54 [facility] - Chemistry and C hemistry - challengeOrdered By: Jordan Ortiz on 11-17-2022 CO2 [Moles/Vol] 33.0 mmol/L 21.0-32.0 [facility] Magnesium [Mass/Vol] 2.1 mg/dL 1.6-2.6 [facility] Urea nitrogen/Creatinine [Mass ratio] 15.8 mg/mg 10-20 [facility] - Hematology and Cell countsOrdered By: Jordan Ortiz on 11-17-2022 Erythrocyte distribution width (RBC) [Entitic vol] 53.9 fL 35.1-43.9 [facility] Erythrocyte distribution width (RBC) [Ratio] 15.8 % 11.6-14.6 [facility] Immature granulocytes/100 WBC (Bld) 1.000 % 0.0-0.9 [facility] Comment on above: IG% - Immature Granu locytes (promyelocytes, myelocytes and metamyelocytes) > 1% indicates that a LEFT SHIFT is Present. MCH (RBC) [Entitic mass] 28.3 pg 27.0-32.0 [facility] Nucleated RBC/100 WBC (Bld) [Ratio] 0.3 % 0-5 [facility] MCHC Auto (RBC) [Mass/Vol]Or dered By: Jordan Ortiz on 11-17-2022 MCHC (RBC) [Mass/Vol] 30.1 g/dL 32-36 [facility] No Panel InformationOrdered By: Jordan Ortiz on 11-17-2022 Estimated Creatinine Clearance Calc 42.47 ml/min [facility] Estimated GFR (MDRD) Amer 53 mL/min >60 [facility] Comment on above: GFR Calc Estimated GFR (MDRD) Non-Af Amer 44 mL/min >60 [facility] Comment on above: Non- GFR Calc 28.3 pg 27.0-32.0 [facility] 15.8 % 11.6-14.6 [facility] 53.9 fl 35.1-43.9 [facility] 1.000 % 0.0-0.9 [facility] 0.3 % 0-5 [facility] 44 mL/min >60 [facility] 53 mL/min >60 [facility] 42.47 ml/min [facility] 15.8 RATIO 10-20 [facility] 2.1 mg/dL 1.6-2.6 [facility] 33.0 mmol/L 21.0-32.0 [facility] Platelets bldOrdered By: Tino Ortiz on 11-17-2022 Platelets (Bld) [#/Vol] 240 10*3/uL 150-450 [facility] Serum or plasma calcium yocasta urement (mass/volume)Ordered By: Jordan Ortiz on 11-17-2022 Calcium [Mass/Vol] 8.2 mg/dL 8.5-10.1 [facility] Serum or plasma creatinine m easurement (mass/volume)Ordered By: Jordan Ortiz on 11-17-2022 Creatinine [Mass/Vol] 1.65 mg/dL 0.70-1.30 [facility] Comment on above: The validity of the calculated GFR & GFRAA in patients over 70 years has not been determined. Clinical correlation is essential. Serum or plasma urea nitroge n measurement (mass/volume)Ordered By: Jordan Ortiz on 11-17-2022 Urea nitrogen [Mass/Vol] 26 mg/dL 7-18 [facility] Thin prep Papanicolaou smear with manual screeningOrdered By: Jordan Ortiz on 11-17-2022 Thin prep Papanicolaou smear with manual screening 2 5-15 [facility] Absolute lymphocyte countOrd ered By: Jj Garcia on 11-15-2022 Lymphocytes Auto (Unsp spec) [#/Vol] 1.31 10*3/uL 0.83-4.51 [facility] Basophil percentageOrdered B y: Jj Garcia on 11-15-2022 Basophils/100 WBC (Bld) 0.8 % 0-1 [facility] Chloride [Moles/Vol] 107 mmol/L 98-107 [facility] Eosinophils/100 WBC (Bld) 6.0 % 0-5 [facility] Glucose [Mass/Vol] 221 mg/dL 74-106 [facility] Comment on above: Glucose result great er than or equal to 200 mg/dLsuggests DIABETES MELLITUS per A.D.A. criteria. Neutrophils (Bld) [#/Vol] 4.8 10*3/uL 2.0-7.7 [facility] Neutrophils/100 WBC (Bld) 65.2 % 47-70 [facility] Potassium [Moles/Vol] 4.7 mmol/L 3.5-5.1 [facility] Sodium [Moles/Vol] 139 mmol/L 136-145 [facility] WBC (Bld) [#/Vol] 7.3 10*3/uL 4.4-11.0 [facility] Blood erythrocytes count (nu mber/volume)Ordered By: Jj Garcia on 11-15-2022 RBC (Bld) [#/Vol] 2.77 10*6/uL 4.6-6.2 [facility] Blood hemoglobin measurement (mass/volume)Ordered By: Jj Garcia on 11-15-2022 Hemoglobin (Bld) [Mass/Vol] 7.9 g/dL 13.0-16.5 [facility] Blood lymphocytes/100 leukoc ytesOrdered By: Jj Garcia on 11-15-2022 Lymphocytes/100 WBC (Bld) 17.9 % 19-41 [facility] Blood monocytes/100 leukocyt esOrdered By: Jjdaisy Garcia on 11-15-2022 Monocytes/100 WBC (Bld) 8.9 % 0-10 [facility] Blood platelet mean volumeOr dered By: Jj Garcia on 11-15-2022 Platelet mean volume (Bld) [Entitic vol] 10.9 fL 6.2-12.0 [facility] Determination of erythrocyte mean corpuscular volume (MCV)Ordered By: Jj Garcia on 11-15-2022 MCV (RBC) [Entitic vol] 96.4 fL 80-94 [facility] Hematocrit Auto (Bld) [Volum e fraction]Ordered By: Jjdaisy Garcia on 11-15-2022 Hematocrit (Bld) [Volume fraction] 26.7 % 40-54 [facility] Iron measurement (mass/mass) Ordered By: Loki Lozoya on 11-15-2022 Iron (Unsp spec) [Mass/Mass] 51 ug/dL 65-175 [facility] Laboratory - Chemistry and C hemistry - challengeOrdered By: Jjdaisy Garcia on 11-15-2022 CO2 [Moles/Vol] 33.0 mmol/L 21.0-32.0 [facility] Natriuretic peptide B (Bld) [Mass/Vol] 298.1 pg/mL 0-100 [facility] Urea nitrogen/Creatinine [Mass ratio] 13.6 mg/mg 10-20 [facility] Laboratory - Hematology and Cell countsOrdered By: Jjdaisy Garcia on 11-15-2022 Erythrocyte distribution width (RBC) [Entitic vol] 54.0 fL 35.1-43.9 [facility] Erythrocyte distribution width (RBC) [Ratio] 15.8 % 11.6-14.6 [facility] Immature granulocytes/100 WBC (Bld) 1.200 % 0.0-0.9 [facility] Comment on above: IG% - Immature Granu locytes (promyelocytes, myelocytes and metamyelocytes) > 1% indicates that a LEFT SHIFT is Present. MCH (RBC) [Entitic mass] 28.5 pg 27.0-32.0 [facility] Nucleated RBC/100 WBC (Bld) [Ratio] 0 % 0-5 [facility] Auto (RBC) [Mass/Vol]Or dered By: Jj Garcia on 11-15-2022 MCHC (RBC) [Mass/Vol] 29.6 g/dL 32-36 [facility] No Panel InformationOrdered By: Loki Lozoya on 11-15-2022 Total Iron Binding Capacity 243 ug/dL 250-450 [facility] Troponin I High Sensitivity 15 pg/mL 3.0-78.0 [facility] Comment on above: Please Note: New Nicole t Units and Gender Specific Reference Ranges. For more information see Policy Stat Procedure [place] High Sensitivity Troponin (TNIH) and attachments. 15 pg/mL 3.0-78.0 [facility] 243 ug/dL 250-450 [facility] No Panel InformationOrdered By: Jj Garcia on 11-15-2022 Estimated Creatinine Clearance Calc 31.52 ml/min [facility] Estimated GFR (MDRD) Amer 57 mL/min >60 [facility] Comment on above: GFR Calc Estimated GFR (MDRD) Non-Af Amer 47 mL/min >60 [facility] Comment on above: Non- GFR Calc Troponin I High Sensitivity 17 pg/mL 3.0-78.0 [facility] Comment on above: Please Note: New Nicole t Units and Gender Specific Reference Ranges. For more information see Policy Stat Procedure [place] High Sensitivity Troponin (TNIH) and attachments. 298.1 pg/mL 0-100 [facility] Platelets bldOrdered By: Jj Garcia on 11-15-2022 Platelets (Bld) [#/Vol] 274 10*3/uL 150-450 [facility] Serum or plasma calcium yocasta urement (mass/volume)Ordered By: Jj Garcia on 11-15-2022 Calcium [Mass/Vol] 8.5 mg/dL 8.5-10.1 [facility] Serum or plasma creatinine m easurement (mass/volume)Ordered By: Jj Garcia on 11-15-2022 Creatinine [Mass/Vol] 1.54 mg/dL 0.70-1.30 [facility] Comment on above: The validity of the calculated GFR & GFRAA in patients over 70 years has not been determined. Clinical correlation is essential. Serum or plasma ferritin vasquez surement (mass/volume)Ordered By: Loki Lozoya on 11-15-2022 Ferritin [Mass/Vol] 111 ng/mL 26-388 [facility] Serum or plasma iron saturat ion measurement (mass fraction)Ordered By: Loki Lozoya on 11-15-2022 Iron saturation [Mass fraction] 21.0 % 15.0-55.0 [facility] Serum or plasma urea nitroge n measurement (mass/volume)Ordered By: Jj Garcia on 11-15-2022 Urea nitrogen [Mass/Vol] 21 mg/dL 7-18 [facility] Thin prep Papanicolaou smear with manual screeningOrdered By: Jj Garcia on 11-15-2022 Thin prep Papanicolaou smear with manual screening -1 5-15 [facility] Whole blood hemoglobin A1c/t otal hemoglobin ratio (mass fraction)Ordered By: Loki Lozoya on 11-15-2022 HbA1c (Bld) [Mass fraction] 8.6 % 3.8-5.6 [facility] Comment on above: Normal < 5.7 % Predi abetic 5.7 - 6.4 % Diabetic >or= 6.5 % Please note range changes. Absolute lymphocyte countOrd ered By: Martha Dodson on 10-29-2022 Lymphocytes Auto (Unsp spec) [#/Vol] 1.37 10*3/uL 0.83-4.51 [facility] Basophil percentageOrdered B y: Martha Dodson on 10-29-2022 Basophils/100 WBC (Bld) 0.6 % 0-1 [facility] Bilirubin [Mass/Vol] 0.40 mg/dL 0.20-1.00 [facility] Comment on above: For patients on eltr ombopag therapy, use of Dimension [place] TBIL is not recommended. Chloride [Moles/Vol] 107 mmol/L 98-107 [facility] Eosinophils/100 WBC (Bld) 4.9 % 0-5 [facility] Glucose [Mass/Vol] 204 mg/dL 74-106 [facility] Comment on above: Glucose result great er than or equal to 200 mg/dLsuggests DIABETES MELLITUS per A.D.A. criteria. LDH [Catalytic activity/Vol] 173 U/L 87-241 [facility] Neutrophils (Bld) [#/Vol] 4.5 10*3/uL 2.0-7.7 [facility] Neutrophils/100 WBC (Bld) 64.4 % 47-70 [facility] Potassium [Moles/Vol] 3.8 mmol/L 3.5-5.1 [facility] Protein [Mass/Vol] 6.4 g/dL 6.4-8.2 [facility] Sodium [Moles/Vol] 140 mmol/L 136-145 [facility] WBC (Bld) [#/Vol] 6.9 10*3/uL 4.4-11.0 [facility] Blood erythrocytes count (nu mber/volume)Ordered By: Martha Dodson on 10-29-2022 RBC (Bld) [#/Vol] 2.80 10*6/uL 4.6-6.2 [facility] Blood hemoglobin measurement (mass/volume)Ordered By: Martha Dodson on 10-29-2022 Hemoglobin (Bld) [Mass/Vol] 7.9 g/dL 13.0-16.5 [facility] Blood lymphocytes/100 leukoc ytesOrdered By: Martha Dodson on 10-29-2022 Lymphocytes/100 WBC (Bld) 19.7 % 19-41 [facility] Blood monocytes/100 leukocyt esOrdered By: Martha Dodson on 10-29-2022 Monocytes/100 WBC (Bld) 9.4 % 0-10 [facility] Blood platelet mean volumeOr dered By: Martha Dodson on 10-29-2022 Platelet mean volume (Bld) [Entitic vol] 10.2 fL 6.2-12.0 [facility] Determination of erythrocyte mean corpuscular volume (MCV)Ordered By: Martha Dodson on 10-29-2022 MCV (RBC) [Entitic vol] 94.6 fL 80-94 [facility] Hematocrit Auto (Bld) [Volum e fraction]Ordered By: Martha Dodson on 10-29-2022 Hematocrit (Bld) [Volume fraction] 26.5 % 40-54 [facility] Laboratory - Chemistry and C hemistry - challengeOrdered By: Martha Dodson on 10-29-2022 ALP [Catalytic activity/Vol] 76 U/L 45-117 [facility] ALT [Catalytic activity/Vol] 13 U/L 16-61 [facility] CO2 [Moles/Vol] 28.0 mmol/L 21.0-32.0 [facility] Globulin (S) [Mass/Vol] 3.1 g/dL 2.2-4.2 [facility] Urea nitrogen/Creatinine [Mass ratio] 15.4 mg/mg 10-20 [facility] - Hematology and Cell countsOrdered By: Martha Dodson on 10-29-2022 Erythrocyte distribution width (RBC) [Entitic vol] 49.1 fL 35.1-43.9 [facility] Erythrocyte distribution width (RBC) [Ratio] 14.2 % 11.6-14.6 [facility] Immature granulocytes/100 WBC (Bld) 1.000 % 0.0-0.9 [facility] Comment on above: IG% - Immature Granu locytes (promyelocytes, myelocytes and metamyelocytes) > 1% indicates that a LEFT SHIFT is Present. MCH (RBC) [Entitic mass] 28.2 pg 27.0-32.0 [facility] Nucleated RBC/100 WBC (Bld) [Ratio] 0 % 0-5 [facility] MCHC Auto (RBC) [Mass/Vol]Or dered By: Martha Dodson on 10-29-2022 MCHC (RBC) [Mass/Vol] 29.8 g/dL 32-36 [facility] No Panel InformationOrdered By: Martha Dodson on 10-29-2022 Estimated Creatinine Clearance Calc 47.03 ml/min [facility] Estimated GFR (MDRD) Amer 59 mL/min >60 [facility] Comment on above: GFR Calc Estimated GFR (MDRD) Non-Af Amer 49 mL/min >60 [facility] Comment on above: Non- GFR Calc Platelets bldOrdered By: Jayden Dodson on 10-29-2022 Platelets (Bld) [#/Vol] 269 10*3/uL 150-450 [facility] Serum or plasma albumin yocasta urement (mass/volume)Ordered By: Martha Dodson on 10-29-2022 Albumin [Mass/Vol] 3.3 g/dL 3.2-5.0 [facility] Serum or plasma albumin/glob ulin mass ratioOrdered By: Martha Dodson on 10-29-2022 Albumin/Globulin [Mass ratio] 1.1 {ratio} 0.9-2.4 [facility] Serum or plasma calcium yocasta urement (mass/volume)Ordered By: Martha Dodson on 10-29-2022 Calcium [Mass/Vol] 8.5 mg/dL 8.5-10.1 [facility] Serum or plasma creatinine m easurement (mass/volume)Ordered By: Martha Dodson on 10-29-2022 Creatinine [Mass/Vol] 1.49 mg/dL 0.70-1.30 [facility] Comment on above: The validity of the calculated GFR & GFRAA in patients over 70 years has not been determined. Clinical correlation is essential. Serum or plasma urea nitroge n measurement (mass/volume)Ordered By: Martha Dodson on 10-29-2022 Urea nitrogen [Mass/Vol] 23 mg/dL 7-18 [facility] Thin prep Papanicolaou smear with manual screeningOrdered By: Martha Dodson on 10-29-2022 Thin prep Papanicolaou smear with manual screening 8 U/L 15-37 [facility] Thin prep Papanicolaou smear with manual screening 5 5-15 [facility] Iron measurement (mass/mass) Ordered By: Martha Dodson on 09-30-2022 Iron (Unsp spec) [Mass/Mass] 30 ug/dL 65-175 [facility] No Panel InformationOrdered By: Martha Dodson on 09-30-2022 Thyroid Stimulating Hormone (TSH) 1.54 uIU/mL 0.358-3.74 [facility] Total Iron Binding Capacity 278 ug/dL 250-450 [facility] 1.54 uIU/mL 0.358-3.74 [facility] Serum or plasma ferritin vasquez surement (mass/volume)Ordered By: Martha Dodson on 09-30-2022 Ferritin [Mass/Vol] 37 ng/mL 26-388 [facility] Serum or plasma iron saturat ion measurement (mass fraction)Ordered By: Martha Dodson on 09-30-2022 Iron saturation [Mass fraction] 10.8 % 15.0-55.0 [facility] - Chemistry and C hemistry - challengeOrdered By: Tobi Zapata on 09-04-2022 Cobalamin (Vitamin B12) [Mass/Vol] 547 pg/mL 211-911 [facility] Serum or plasma folate measu rement (mass/volume)Ordered By: Tobi Zapata on 09-04-2022 Folate [Mass/Vol] 6.50 ng/mL 3.1-55.4 [facility] Absolute lymphocyte countOrd ered By: Adam Freeman on 08-29-2022 Lymphocytes Auto (Unsp spec) [#/Vol] 1.02 10*3/uL 0.83-4.51 [facility] Basophil percentageOrdered B y: Adam Freeman on 08-29-2022 Basophils/100 WBC (Bld) 0.6 % 0-1 [facility] Bilirubin [Mass/Vol] 0.40 mg/dL 0.20-1.00 [facility] Comment on above: For patients on eltr ombopag therapy, use of Dimension [place] TBIL is not recommended. Chloride [Moles/Vol] 106 mmol/L 98-107 [facility] Eosinophils/100 WBC (Bld) 4.3 % 0-5 [facility] Glucose [Mass/Vol] 338 mg/dL 74-106 [facility] Comment on above: Glucose result great er than or equal to 200 mg/dLsuggests DIABETES MELLITUS per A.D.A. criteria. Neutrophils (Bld) [#/Vol] 4.5 10*3/uL 2.0-7.7 [facility] Neutrophils/100 WBC (Bld) 68.2 % 47-70 [facility] Potassium [Moles/Vol] 4.3 mmol/L 3.5-5.1 [facility] Protein [Mass/Vol] 7.0 g/dL 6.4-8.2 [facility] Sodium [Moles/Vol] 139 mmol/L 136-145 [facility] WBC (Bld) [#/Vol] 6.5 10*3/uL 4.4-11.0 [facility] Blood erythrocytes count (nu mber/volume)Ordered By: Adam Freeman on 08-29-2022 RBC (Bld) [#/Vol] 2.58 10*6/uL 4.6-6.2 [facility] Blood hemoglobin measurement (mass/volume)Ordered By: Adam Freeman on 08-29-2022 Hemoglobin (Bld) [Mass/Vol] 7.9 g/dL 13.0-16.5 [facility] Blood hemoglobin measurement (mass/volume)Ordered By: Khai Galeana on 08-29-2022 Hemoglobin (Bld) [Mass/Vol] 7.8 g/dL 13.0-16.5 [facility] Blood lymphocytes/100 leukoc ytesOrdered By: Adam Freeman on 08-29-2022 Lymphocytes/100 WBC (Bld) 15.6 % 19-41 [facility] Blood monocytes/100 leukocyt esOrdered By: Adam Freeman on 08-29-2022 Monocytes/100 WBC (Bld) 10.4 % 0-10 [facility] Blood platelet mean volumeOr dered By: Adam Freeman on 08-29-2022 Platelet mean volume (Bld) [Entitic vol] 10.4 fL 6.2-12.0 [facility] Determination of erythrocyte mean corpuscular volume (MCV)Ordered By: Adam Freeman on 08-29-2022 MCV (RBC) [Entitic vol] 95.7 fL 80-94 [facility] Hematocrit Auto (Bld) [Volum e fraction]Ordered By: Adam Freeman on 08-29-2022 Hematocrit (Bld) [Volume fraction] 24.7 % 40-54 [facility] Hematocrit Auto (Bld) [Volum e fraction]Ordered By: Khai Galeana on 08-29-2022 Hematocrit (Bld) [Volume fraction] 26.2 % 40-54 [facility] Laboratory - Chemistry and C hemistry - challengeOrdered By: Adam Freeman on 08-29-2022 ALP [Catalytic activity/Vol] 86 U/L 45-117 [facility] ALT [Catalytic activity/Vol] 19 U/L 16-61 [facility] CO2 [Moles/Vol] 28.0 mmol/L 21.0-32.0 [facility] Globulin (S) [Mass/Vol] 3.6 g/dL 2.2-4.2 [facility] Urea nitrogen/Creatinine [Mass ratio] 20.3 mg/mg 10-20 [facility] - Hematology and Cell countsOrdered By: Adam Freeman on 08-29-2022 Erythrocyte distribution width (RBC) [Entitic vol] 50.5 fL 35.1-43.9 [facility] Erythrocyte distribution width (RBC) [Ratio] 14.7 % 11.6-14.6 [facility] Immature granulocytes/100 WBC (Bld) 0.900 % 0.0-0.9 [facility] Comment on above: IG% - Immature Granu locytes (promyelocytes, myelocytes and metamyelocytes) > 1% indicates that a LEFT SHIFT is Present. MCH (RBC) [Entitic mass] 30.6 pg 27.0-32.0 [facility] Nucleated RBC/100 WBC (Bld) [Ratio] 0 % 0-5 [facility] MCHC Auto (RBC) [Mass/Vol]Or dered By: Adam Freeman on 08-29-2022 MCHC (RBC) [Mass/Vol] 32.0 g/dL 32-36 [facility] No Panel InformationOrdered By: Adam Freeman on 08-29-2022 Estimated GFR (MDRD) Amer 62 mL/min >60 [facility] Comment on above: GFR Calc Estimated GFR (MDRD) Non-Af Amer 52 mL/min >60 [facility] Comment on above: Non- GFR Calc Platelets bldOrdered By: Valerie Freeman on 08-29-2022 Platelets (Bld) [#/Vol] 264 10*3/uL 150-450 [facility] Serum or plasma albumin yocasta urement (mass/volume)Ordered By: Adam Freeman on 08-29-2022 Albumin [Mass/Vol] 3.4 g/dL 3.2-5.0 [facility] Serum or plasma albumin/glob ulin mass ratioOrdered By: Adam Freeman on 08-29-2022 Albumin/Globulin [Mass ratio] 0.9 {ratio} 0.9-2.4 [facility] Serum or plasma calcium yocasta urement (mass/volume)Ordered By: Adam Freeman on 08-29-2022 Calcium [Mass/Vol] 8.8 mg/dL 8.5-10.1 [facility] Serum or plasma creatinine m easurement (mass/volume)Ordered By: Adam Freeman on 08-29-2022 Creatinine [Mass/Vol] 1.43 mg/dL 0.70-1.30 [facility] Comment on above: The validity of the calculated GFR & GFRAA in patients over 70 years has not been determined. Clinical correlation is essential. Serum or plasma urea nitroge n measurement (mass/volume)Ordered By: Adam Freeman on 08-29-2022 Urea nitrogen [Mass/Vol] 29 mg/dL 7-18 [facility] Thin prep Papanicolaou smear with manual screeningOrdered By: Adam Freeman on 08-29-2022 Thin prep Papanicolaou smear with manual screening 9 U/L 15-37 [facility] Thin prep Papanicolaou smear with manual screening 5 5-15 [facility] Absolute lymphocyte countOrd ered By: Tobi Zapata on 08-08-2022 Lymphocytes Auto (Unsp spec) [#/Vol] 1.70 10*3/uL 0.83-4.51 [facility] Basophil percentageOrdered B y: Tobi Zapata on 08-08-2022 Basophils/100 WBC (Bld) 0.6 % 0-1 [facility] Eosinophils/100 WBC (Bld) 4.5 % 0-5 [facility] Neutrophils (Bld) [#/Vol] 3.7 10*3/uL 2.0-7.7 [facility] Neutrophils/100 WBC (Bld) 55.8 % 47-70 [facility] WBC (Bld) [#/Vol] 6.7 10*3/uL 4.4-11.0 [facility] Blood erythrocytes count (nu mber/volume)Ordered By: Tobi Zapata on 08-08-2022 RBC (Bld) [#/Vol] 2.52 10*6/uL 4.6-6.2 [facility] Blood hemoglobin measurement (mass/volume)Ordered By: Tobi Zapata on 08-08-2022 Hemoglobin (Bld) [Mass/Vol] 7.6 g/dL 13.0-16.5 [facility] Blood lymphocytes/100 leukoc ytesOrdered By: Tobi Zapata on 08-08-2022 Lymphocytes/100 WBC (Bld) 25.4 % 19-41 [facility] Blood monocytes/100 leukocyt esOrdered By: Tobi Zapata on 08-08-2022 Monocytes/100 WBC (Bld) 12.1 % 0-10 [facility] Blood platelet mean volumeOr dered By: Tobi Zapata on 08-08-2022 Platelet mean volume (Bld) [Entitic vol] 10.3 fL 6.2-12.0 [facility] Determination of erythrocyte mean corpuscular volume (MCV)Ordered By: Tobi Zapata on 08-08-2022 MCV (RBC) [Entitic vol] 99.2 fL 80-94 [facility] Hematocrit Auto (Bld) [Volum e fraction]Ordered By: Tobi Zapata on 08-08-2022 Hematocrit (Bld) [Volume fraction] 25.0 % 40-54 [facility] - Hematology and Cell countsOrdered By: Tobi Zapata on 08-08-2022 Erythrocyte distribution width (RBC) [Entitic vol] 54.2 fL 35.1-43.9 [facility] Erythrocyte distribution width (RBC) [Ratio] 15.0 % 11.6-14.6 [facility] Immature granulocytes/100 WBC (Bld) 1.600 % 0.0-0.9 [facility] Comment on above: IG% - Immature Granu locytes (promyelocytes, myelocytes and metamyelocytes) > 1% indicates that a LEFT SHIFT is Present. MCH (RBC) [Entitic mass] 30.2 pg 27.0-32.0 [facility] Nucleated RBC/100 WBC (Bld) [Ratio] 0.3 % 0-5 [facility] MCHC Auto (RBC) [Mass/Vol]Or dered By: Tobi Zapata on 08-08-2022 MCHC (RBC) [Mass/Vol] 30.4 g/dL 32-36 [facility] Platelets bldOrdered By: Mikael Zapata on 08-08-2022 Platelets (Bld) [#/Vol] 210 10*3/uL 150-450 [facility] Lower GI hemoglobin IA Ql (S tl)Ordered By: Tobi Zapata on 07-29-2022 Stool Occult Blood (FOREST) Positive [facility] Stool gastrointestinal hemoglobin detection by immunologic method Positive Abnormal [facility] Stool gastrointestinal hemog lobin detection by immunologic methodOrdered By: Tobi Zapata on 07-29-2022 Lower GI hemoglobin IA Ql (Stl) Positive Abnormal [facility] Basophil percentageOrdered B y: Tobi Zapata on 07-23-2022 Bilirubin [Mass/Vol] 0.30 mg/dL 0.20-1.00 [facility] Comment on above: For patients on eltr ombopag therapy, use of Dimension [place] TBIL is not recommended. Chloride [Moles/Vol] 115 mmol/L 98-107 [facility] Glucose [Mass/Vol] 323 mg/dL 74-106 [facility] Comment on above: Glucose result great er than or equal to 200 mg/dLsuggests DIABETES MELLITUS per A.D.A. criteria. LDH [Catalytic activity/Vol] 170 U/L 87-241 [facility] Potassium [Moles/Vol] 5.7 mmol/L 3.5-5.1 [facility] Protein [Mass/Vol] 6.2 g/dL 6.4-8.2 [facility] Sodium [Moles/Vol] 142 mmol/L 136-145 [facility] Iron measurement (mass/mass) Ordered By: Tobi Zapata on 07-23-2022 Iron (Unsp spec) [Mass/Mass] 70 ug/dL 65-175 [facility] - Chemistry and C hemistry - challengeOrdered By: Tobi Zapata on 07-23-2022 ALP [Catalytic activity/Vol] 90 U/L 45-117 [facility] ALT [Catalytic activity/Vol] 19 U/L 16-61 [facility] CO2 [Moles/Vol] 20.0 mmol/L 21.0-32.0 [facility] Globulin (S) [Mass/Vol] 3.0 g/dL 2.2-4.2 [facility] Urea nitrogen/Creatinine [Mass ratio] 30.8 mg/mg 10-20 [facility] No Panel InformationOrdered By: Tobi Zapata on 07-23-2022 Estimated Creatinine Clearance Calc 48.71 ml/min [facility] Estimated GFR (MDRD) Amer 61 mL/min >60 [facility] Comment on above: GFR Calc Estimated GFR (MDRD) Non-Af Amer 50 mL/min >60 [facility] Comment on above: Non- GFR Calc Total Iron Binding Capacity 239 ug/dL 250-450 [facility] Serum or plasma albumin yocasta urement (mass/volume)Ordered By: Tobi Zapata on 07-23-2022 Albumin [Mass/Vol] 3.2 g/dL 3.2-5.0 [facility] Serum or plasma albumin/glob ulin mass ratioOrdered By: Tobi Zapata on 07-23-2022 Albumin/Globulin [Mass ratio] 1.1 {ratio} 0.9-2.4 [facility] Serum or plasma calcium yocasta urement (mass/volume)Ordered By: Tobi Zapata on 07-23-2022 Calcium [Mass/Vol] 8.1 mg/dL 8.5-10.1 [facility] Serum or plasma creatinine m easurement (mass/volume)Ordered By: Tobi Zapata on 07-23-2022 Creatinine [Mass/Vol] 1.46 mg/dL 0.70-1.30 [facility] Comment on above: The validity of the calculated GFR & GFRAA in patients over 70 years has not been determined. Clinical correlation is essential. Serum or plasma ferritin vasquez surement (mass/volume)Ordered By: Tobi Zapata on 07-23-2022 Ferritin [Mass/Vol] 98 ng/mL 26-388 [facility] Serum or plasma iron saturat ion measurement (mass fraction)Ordered By: Tobi Zapata on 07-23-2022 Iron saturation [Mass fraction] 29.3 % 15.0-55.0 [facility] Serum or plasma urea nitroge n measurement (mass/volume)Ordered By: Tobi Zapata on 07-23-2022 Urea nitrogen [Mass/Vol] 45 mg/dL 7-18 [facility] Thin prep Papanicolaou smear with manual screeningOrdered By: Tobi Zapata on 07-23-2022 Thin prep Papanicolaou smear with manual screening 13 U/L 15-37 [facility] Thin prep Papanicolaou smear with manual screening 7 5-15 [facility] Basophil percentageOrdered B y: Nate Bearden on 07-09-2022 Creatinine [Mass/Vol] 1.4 mg/dL 0.70-1.30 [facility] Laboratory - Chemistry and C hemistry - challengeOrdered By: Nate Bearden on 07-09-2022 GFR/1.73 sq M.predicted among non-blacks MDRD (S/P/Bld) [Vol rate/Area] 53.0000 mL/min/{1.73_m2} >60 [facility] Blood hemoglobin measurement (mass/volume)Ordered By: Khai Galeana on 06-19-2022 Hemoglobin (Bld) [Mass/Vol] 9.7 g/dL 13.0-16.5 [facility] Hematocrit Auto (Bld) [Volum e fraction]Ordered By: Khaimarielena Galeana on 06-19-2022 Hematocrit (Bld) [Volume fraction] 31.7 % 40-54 [facility] Iron measurement (mass/mass) Ordered By: Khai Galeana on 06-19-2022 Iron (Unsp spec) [Mass/Mass] 115 ug/dL 65-175 [facility] No Panel InformationOrdered By: Khai Galeana on 06-19-2022 Prostate Specific Antigen Screen 1.24 ng/mL 0.00-4.00 [facility] Comment on above: This test was perfor med using the TPSA assay method [facility]. Values obtained with differentassay methods cannot be used interchangably.When changing PSA assays in the course of monitoring apatient, additional sequential testing should be carriedout to confirm baseline values. Total Iron Binding Capacity 257 ug/dL 250-450 [facility] Serum or plasma ferritin vasquez surement (mass/volume)Ordered By: Khai Galeana on 06-19-2022 Ferritin [Mass/Vol] 283 ng/mL 26-388 [facility] Serum or plasma iron saturat ion measurement (mass fraction)Ordered By: Khai Galeana on 06-19-2022 Iron saturation [Mass fraction] 44.7 % 15.0-55.0 [facility] Stool gastrointestinal hemog lobin detection by immunologic methodOrdered By: Tobi Zapata on 03-10-2023 Lower GI hemoglobin IA Ql (Stl) [facility] Stool gastrointestinal hemog lobin detection by immunologic methodOrdered By: Dr. Zapata on 05-03-2022 Lower GI hemoglobin IA Ql (Stl) [facility] Absolute lymphocyte countOrd ered By: Dr. Zapata on 04-29-2022 Lymphocytes Auto (Unsp spec) [#/Vol] 3.43 10*3/uL 0.83-4.51 [facility] Basophil percentageOrdered B y: Dr. Zapata on 04-29-2022 Basophils/100 WBC (Bld) 0.6 % 0-1 [facility] Bilirubin [Mass/Vol] 0.30 mg/dL 0.20-1.00 [facility] Comment on above: For patients on eltr ombopag therapy, use of Dimension [place] TBIL is not recommended. Chloride [Moles/Vol] 109 mmol/L 98-107 [facility] Eosinophils/100 WBC (Bld) 4.5 % 0-5 [facility] Glucose [Mass/Vol] 209 mg/dL 74-106 [facility] Comment on above: Glucose result great er than or equal to 200 mg/dLsuggests DIABETES MELLITUS per A.D.A. criteria. LDH [Catalytic activity/Vol] 223 U/L 87-241 [facility] Neutrophils (Bld) [#/Vol] 5.4 10*3/uL 2.0-7.7 [facility] Neutrophils/100 WBC (Bld) 49.7 % 47-70 [facility] Potassium [Moles/Vol] 4.5 mmol/L 3.5-5.1 [facility] Protein [Mass/Vol] 7.4 g/dL 6.4-8.2 [facility] Sodium [Moles/Vol] 141 mmol/L 136-145 [facility] WBC (Bld) [#/Vol] 10.8 10*3/uL 4.4-11.0 [facility] Blood erythrocytes count (nu mber/volume)Ordered By: Dr. Zapata on 04-29-2022 RBC (Bld) [#/Vol] 2.87 10*6/uL 4.6-6.2 [facility] Blood hemoglobin measurement (mass/volume)Ordered By: Dr. Zapata on 04-29-2022 Hemoglobin (Bld) [Mass/Vol] 8.5 g/dL 13.0-16.5 [facility] Blood lymphocytes/100 leukoc ytesOrdered By: Dr. Zapata on 04-29-2022 Lymphocytes/100 WBC (Bld) 31.8 % 19-41 [facility] Blood monocytes/100 leukocyt esOrdered By: Dr. Zapata on 04-29-2022 Monocytes/100 WBC (Bld) 11.9 % 0-10 [facility] Blood platelet mean volumeOr dered By: Dr. Zapata on 04-29-2022 Platelet mean volume (Bld) [Entitic vol] 9.6 fL 6.2-12.0 [facility] Determination of erythrocyte mean corpuscular volume (MCV)Ordered By: Dr. Zapata on 04-29-2022 MCV (RBC) [Entitic vol] 92.0 fL 80-94 [facility] Hematocrit Auto (Bld) [Volum e fraction]Ordered By: Dr. Zapata on 04-29-2022 Hematocrit (Bld) [Volume fraction] 26.4 % 40-54 [facility] Hemoglobin in reticulocytes (mass per reticulocyte)Ordered By: Dr. Zapata on 04-29-2022 Hemoglobin (Reticulocytes) [Entitic mass] 27.7 pg 30-35 [facility] Iron measurement (mass/mass) Ordered By: Dr. Zapata on 04-29-2022 Iron (Unsp spec) [Mass/Mass] 38 ug/dL 65-175 [facility] Laboratory - Chemistry and C hemistry - challengeOrdered By: Dr. Zapata on 04-29-2022 ALP [Catalytic activity/Vol] 82 U/L 45-117 [facility] ALT [Catalytic activity/Vol] 15 U/L 16-61 [facility] CO2 [Moles/Vol] 24.0 mmol/L 21.0-32.0 [facility] Globulin (S) [Mass/Vol] 4.2 g/dL 2.2-4.2 [facility] Urea nitrogen/Creatinine [Mass ratio] 22.9 mg/mg 10-20 [facility] Laboratory - Hematology and Cell countsOrdered By: Dr. Zapata on 04-29-2022 Erythrocyte distribution width (RBC) [Entitic vol] 48.0 fL 35.1-43.9 [facility] Erythrocyte distribution width (RBC) [Ratio] 14.3 % 11.6-14.6 [facility] Immature granulocytes/100 WBC (Bld) 1.500 % 0.0-0.9 [facility] Comment on above: IG% - Immature Granu locytes (promyelocytes, myelocytes and metamyelocytes) > 1% indicates that a LEFT SHIFT is Present. MCH (RBC) [Entitic mass] 29.6 pg 27.0-32.0 [facility] Nucleated RBC/100 WBC (Bld) [Ratio] 0 % 0-5 [facility] MCHC Auto (RBC) [Mass/Vol]Or dered By: Dr. Zapata on 04-29-2022 MCHC (RBC) [Mass/Vol] 32.2 g/dL 32-36 [facility] No Panel InformationOrdered By: Dr. Zapata on 04-29-2022 Estimated Creatinine Clearance Calc 54.29 ml/min [facility] Estimated GFR (MDRD) Amer 69 mL/min >60 [facility] Comment on above: GFR Calc Estimated GFR (MDRD) Non-Af Amer 57 mL/min >60 [facility] Comment on above: Non- GFR Calc Immature Reticulocyte Fraction 31.80 % 3.00-15.90 [facility] Reticulocyte Count 2.75 % 0.5-1.5 [facility] Total Iron Binding Capacity 256 ug/dL 250-450 [facility] No Panel InformationOrdered By: Tobi Zapata on 04-29-2022 2.75 % 0.5-1.5 [facility] 31.80 % 3.00-15.90 [facility] Platelets bldOrdered By: Dr. Zapata on 04-29-2022 Platelets (Bld) [#/Vol] 398 10*3/uL 150-450 [facility] Serum or plasma albumin yocasta urement (mass/volume)Ordered By: Dr. Zapata on 04-29-2022 Albumin [Mass/Vol] 3.2 g/dL 3.2-5.0 [facility] Serum or plasma albumin/glob ulin mass ratioOrdered By: Dr. Zapata on 04-29-2022 Albumin/Globulin [Mass ratio] 0.8 {ratio} 0.9-2.4 [facility] Serum or plasma calcium yocasta urement (mass/volume)Ordered By: Dr. Zapata on 04-29-2022 Calcium [Mass/Vol] 9.3 mg/dL 8.5-10.1 [facility] Serum or plasma creatinine m easurement (mass/volume)Ordered By: Dr. Zapata on 04-29-2022 Creatinine [Mass/Vol] 1.31 mg/dL 0.70-1.30 [facility] Comment on above: The validity of the calculated GFR & GFRAA in patients over 70 years has not been determined. Clinical correlation is essential. Serum or plasma ferritin vasquez surement (mass/volume)Ordered By: Dr. Zapata on 04-29-2022 Ferritin [Mass/Vol] 203 ng/mL 26-388 [facility] Serum or plasma iron saturat ion measurement (mass fraction)Ordered By: Dr. Zapata on 04-29-2022 Iron saturation [Mass fraction] 14.8 % 15.0-55.0 [facility] Serum or plasma urea nitroge n measurement (mass/volume)Ordered By: Dr. Zapata on 04-29-2022 Urea nitrogen [Mass/Vol] 30 mg/dL 7-18 [facility] Thin prep Papanicolaou smear with manual screeningOrdered By: Dr. Zapata on 04-29-2022 Thin prep Papanicolaou smear with manual screening 9 U/L 15-37 [facility] Thin prep Papanicolaou smear with manual screening 8 5-15 [facility] Basophil percentageOrdered B y: DANNIELLE PIÑA on 03-09-2022 Basophils (Bld) [#/Vol] 5.6 10*3/uL 4.4-11.0 [facility] WBC (Bld) [#/Vol] 5.6 10*3/uL 4.4-11.0 [facility] Blood erythrocytes count (nu mber/volume)Ordered By: DANNIELLE PIÑA on 03-09-2022 RBC (Bld) [#/Vol] 3.47 10*6/uL 4.6-6.2 [facility] Blood hemoglobin measurement (mass/volume)Ordered By: DANNIELLE PIÑA on 03-09-2022 Hemoglobin (Bld) [Mass/Vol] 9.6 g/dL 13.0-16.5 [facility] Blood platelet mean volumeOr dered By: DANNIELLE PIÑA on 03-09-2022 Platelet mean volume (Bld) [Entitic vol] 10.8 fL 6.2-12.0 [facility] Determination of erythrocyte mean corpuscular volume (MCV)Ordered By: DANNIELLE PIÑA on 03-09-2022 MCV (RBC) [Entitic vol] 88.2 fL 80-94 [facility] Hematocrit Auto (Bld) [Volum e fraction]Ordered By: DANNIELLE PIÑA on 03-09-2022 Hematocrit (Bld) [Volume fraction] 30.6 % 40-54 [facility] Laboratory - Hematology and Cell countsOrdered By: DANNIELLE PIÑA on 03-09-2022 Erythrocyte distribution width (RBC) [Entitic vol] 49.5 fL 35.1-43.9 [facility] Erythrocyte distribution width (RBC) [Ratio] 15.5 % 11.6-14.6 [facility] MCH (RBC) [Entitic mass] 27.7 pg 27.0-32.0 [facility] MCHC Auto (RBC) [Mass/Vol]Or dered By: DANNIELLE PIÑA on 03-09-2022 MCHC (RBC) [Mass/Vol] 31.4 g/dL 32-36 [facility] No Panel InformationOrdered By: DANNIELLE PIÑA on 03-09-2022 27.7 pg 27.0-32.0 [facility] 15.5 % 11.6-14.6 [facility] 49.5 fl 35.1-43.9 [facility] Platelets bldOrdered By: EDWARD NEWSOME on 03-09-2022 Platelets (Bld) [#/Vol] 265 10*3/uL 150-450 [facility] Laboratory - Microbiology an d Antimicrobial susceptibilityOrdered By: Dr. Walker on 02-20-2022 Bacteria identified Cx Nom (Bld) No growth in 5 days. [facility] No Panel InformationOrdered By: Dr. Walker on 02-20-2022 No growth in 5 days. [facility] Bacteria identified Cx Nom ( U)Ordered By: Dr. Walker on 02-16-2022 Culture, urine Positive [facility] Culture, urineOrdered By: Dr Juan Walker on 02-16-2022 Bacteria identified Cx Nom (U) Positive [facility] Laboratory - Microbiology an d Antimicrobial susceptibilityOrdered By: Dr. Rosas on 02-16-2022 Respiratory pathogens DNA and RNA 12b panel JUSTIN+probe (Unsp spec) [facility] Absolute lymphocyte countOrd ered By: Dr. Shannon on 02-15-2022 Lymphocytes Auto (Unsp spec) [#/Vol] 2.99 10*3/uL 0.83-4.51 [facility] Basophil percentageOrdered B y: Dr. Shannon on 02-15-2022 Basophil percentage 161 mg/dL 74-106 [facility] Basophil percentage 139 mmol/L 136-145 [facility] Basophil percentage 4.1 mmol/L 3.5-5.1 [facility] Basophil percentage 107 mmol/L 98-107 [facility] Basophils (Bld) [#/Vol] 11.1 10*3/uL 4.4-11.0 [facility] Basophils (Bld) [#/Vol] 6.1 10*3/uL 2.0-7.7 [facility] Basophils/100 WBC (Bld) 0.6 % 0-1 [facility] Basophils/100 WBC (Bld) 54.4 % 47-70 [facility] Basophils/100 WBC (Bld) 3.0 % 0-5 [facility] Chloride [Moles/Vol] 107 mmol/L 98-107 [facility] Eosinophils/100 WBC (Bld) 3.0 % 0-5 [facility] Glucose [Mass/Vol] 161 mg/dL 74-106 [facility] Comment on above: Fasting Glucose resu lt greater than or equal to 126 mg/dL suggests DIABETES MELLITUS per A.D.A. criteria. Neutrophils (Bld) [#/Vol] 6.1 10*3/uL 2.0-7.7 [facility] Neutrophils/100 WBC (Bld) 54.4 % 47-70 [facility] Potassium [Moles/Vol] 4.1 mmol/L 3.5-5.1 [facility] Sodium [Moles/Vol] 139 mmol/L 136-145 [facility] WBC (Bld) [#/Vol] 11.1 10*3/uL 4.4-11.0 [facility] Blood erythrocytes count (nu mber/volume)Ordered By: Dr. Shannon on 02-15-2022 RBC (Bld) [#/Vol] 3.68 10*6/uL 4.6-6.2 [facility] Blood hemoglobin measurement (mass/volume)Ordered By: Dr. Shannon on 02-15-2022 Hemoglobin (Bld) [Mass/Vol] 10.5 g/dL 13.0-16.5 [facility] Blood lymphocytes/100 leukoc ytesOrdered By: Dr. Shannon on 02-15-2022 Lymphocytes/100 WBC (Bld) 26.8 % 19-41 [facility] Blood manual differential co mment interpretation (narrative result)Ordered By: Dr. Shannon on 02-15-2022 Manual differential comment Sohan (Bld) [Interp] SCANNED [facility] Blood monocytes/100 leukocyt esOrdered By: Dr. Shannon on 02-15-2022 Monocytes/100 WBC (Bld) 14.3 % 0-10 [facility] Blood platelet mean volumeOr dered By: Dr. Shannon on 02-15-2022 Platelet mean volume (Bld) [Entitic vol] 10.6 fL 6.2-12.0 [facility] Determination of erythrocyte mean corpuscular volume (MCV)Ordered By: Dr. Shannon on 02-15-2022 MCV (RBC) [Entitic vol] 89.1 fL 80-94 [facility] Hematocrit Auto (Bld) [Volum e fraction]Ordered By: Dr. Shannon on 02-15-2022 Hematocrit (Bld) [Volume fraction] 32.8 % 40-54 [facility] Laboratory - Chemistry and C hemistry - challengeOrdered By: Dr. Shannon on 02-15-2022 CO2 [Moles/Vol] 25.0 mmol/L 21.0-32.0 [facility] Urea nitrogen/Creatinine [Mass ratio] 25.8 mg/mg 10-20 [facility] Laboratory - Hematology and Cell countsOrdered By: Dr. Shannon on 02-15-2022 Erythrocyte distribution width (RBC) [Entitic vol] 49.6 fL 35.1-43.9 [facility] Erythrocyte distribution width (RBC) [Ratio] 15.2 % 11.6-14.6 [facility] Immature granulocytes/100 WBC (Bld) 0.900 % 0.0-0.9 [facility] Comment on above: IG% - Immature Granu locytes (promyelocytes, myelocytes and metamyelocytes) > 1% indicates that a LEFT SHIFT is Present. MCH (RBC) [Entitic mass] 28.5 pg 27.0-32.0 [facility] Nucleated RBC/100 WBC (Bld) [Ratio] 0 % 0-5 [facility] MCHC Auto (RBC) [Mass/Vol]Or dered By: Dr. Shannon on 02-15-2022 MCHC (RBC) [Mass/Vol] 32.0 g/dL 32-36 [facility] No Panel InformationOrdered By: Dr. Shannon on 02-15-2022 Methicillin-Resist S.aureus DNA PCR Negative Negative [facility] Negative Negative [facility] Estimated Creatinine Clearance Calc 53.88 ml/min [facility] Estimated GFR (MDRD) Amer 69 mL/min >60 [facility] Comment on above: GFR Calc Estimated GFR (MDRD) Non-Af Amer 57 mL/min >60 [facility] Comment on above: Non- GFR Calc 28.5 pg 27.0-32.0 [facility] 15.2 % 11.6-14.6 [facility] 49.6 fl 35.1-43.9 [facility] 0.900 % 0.0-0.9 [facility] 0 % 0-5 [facility] 57 mL/min >60 [facility] 69 mL/min >60 [facility] 53.88 ml/min [facility] 25.8 RATIO 10-20 [facility] 25.0 mmol/L 21.0-32.0 [facility] Platelets bldOrdered By: Dr. Shannon on 02-15-2022 Platelets (Bld) [#/Vol] 357 10*3/uL 150-450 [facility] Review by pathologistOrdered By: Dr. Shannon on 02-15-2022 Pathologist review Sohan (Unsp spec) [Interp] Reviewed [facility] Comment on above: Previous reported re sult: Josephine hair Edited by: ROSETTA on 02/15/22:1412Leukocytosis. Normocytic anemia.Clinical correlation necessary.Mc Urias M.D. 02/15/22 AMENDED REPORT 02/15/22 1412 PATH REV previously reported as: [facility] Serum or plasma calcium yocasta urement (mass/volume)Ordered By: Dr. Shannon on 02-15-2022 Calcium [Mass/Vol] 9.3 mg/dL 8.5-10.1 [facility] Serum or plasma creatinine m easurement (mass/volume)Ordered By: Dr. Shannon on 02-15-2022 Creatinine [Mass/Vol] 1.32 mg/dL 0.70-1.30 [facility] Comment on above: The validity of the calculated GFR & GFRAA in patients over 70 years has not been determined. Clinical correlation is essential. Serum or plasma urea nitroge n measurement (mass/volume)Ordered By: Dr. Shannon on 02-15-2022 Urea nitrogen [Mass/Vol] 34 mg/dL 7-18 [facility] Thin prep Papanicolaou smear with manual screeningOrdered By: Dr. Shannon on 02-15-2022 Thin prep Papanicolaou smear with manual screening 7 5-15 [facility] Absolute lymphocyte counton 02-14-2022 Lymphocytes Auto (Unsp spec) [#/Vol] 1.28 10*3/uL 0.83-4.51 [facility] Work Phone: Amorphous sediment detection in urine sediment by light microscopyOrdered By: Dr. Walker on 02-14-2022 Amorphous sediment LM Ql (Urine sed) 1+ URATE [facility] Basophil percentageOrdered B y: Dr. Walker on 02-14-2022 Basophil percentage 50-100 SEEN /hpf 0-5 [facility] Basophil percentage 1.0 mmol/L 0.4-2.0 [facility] Lactate [Moles/Vol] 1.0 mmol/L 0.4-2.0 [facility] Basophil percentageon 2021 Basophils/100 WBC (Bld) 0.5 % 0-1 [facility] Work Phone: Chloride [Moles/Vol] 109 mmol/L 98-107 [facility] Work Phone: Eosinophils/100 WBC (Bld) 1.4 % 0-5 [facility] Work Phone: Glucose [Mass/Vol] 217 mg/dL 74-106 [facility] Work Phone: Comment on above: Glucose result great er than or equal to 200 mg/dLsuggests DIABETES MELLITUS per A.D.A. criteria. Neutrophils (Bld) [#/Vol] 7.6 10*3/uL 2.0-7.7 [facility] Work Phone: Neutrophils/100 WBC (Bld) 72.2 % 47-70 [facility] Work Phone: [phone] Potassium [Moles/Vol] 5.1 mmol/L 3.5-5.1 [facility] Work Phone: [phone] Sodium [Moles/Vol] 138 mmol/L 136-145 [facility] Work Phone: [phone] WBC (Bld) [#/Vol] 10.6 10*3/uL 4.4-11.0 [facility] Work Phone: Bilirubin Test strip Ql (U)O rdered By: Dr. Walker on 02-14-2022 Bilirubin Ql (U) Negative Negative [facility] Blood erythrocytes count (nu mber/volume)on 02-14-2022 RBC (Bld) [#/Vol] 3.59 10*6/uL 4.6-6.2 [facility] Work Phone: Blood hemoglobin measurement (mass/volume)on 02-14-2022 Hemoglobin (Bld) [Mass/Vol] 10.1 g/dL 13.0-16.5 [facility] Work Phone: Blood lymphocytes/100 leukoc yteson 02-14-2022 Lymphocytes/100 WBC (Bld) 12.1 % 19-41 [facility] Work Phone: Blood monocytes/100 leukocyt eson 02-14-2022 Monocytes/100 WBC (Bld) 13.2 % 0-10 [facility] Work Phone: Blood platelet mean volumeon 02-14-2022 Platelet mean volume (Bld) [Entitic vol] 10.0 fL 6.2-12.0 [facility] Work Phone: Determination of erythrocyte mean corpuscular volume (MCV)on 02-14-2022 MCV (RBC) [Entitic vol] 89.1 fL 80-94 [facility] Work Phone: Hematocrit Auto (Bld) [Volum e fraction]on 02-14-2022 Hematocrit (Bld) [Volume fraction] 32.0 % 40-54 [facility] Work Phone: Ketones Test strip Ql (U)Ord ered By: Dr. Walker on 02-14-2022 Ketones Ql (U) Negative Negative [facility] Laboratory - Chemistry and C hemistry - challengeon 02-14-2022 CO2 [Moles/Vol] 25.0 mmol/L 21.0-32.0 [facility] Work Phone: Urea nitrogen/Creatinine [Mass ratio] 27.1 mg/mg 10-20 [facility] Work Phone: [phone] Laboratory - Chemistry and C hemistry - challengeOrdered By: Dr. Walker on 02-14-2022 Natriuretic peptide B (Bld) [Mass/Vol] 204.9 pg/mL 0-100 [facility] Laboratory - Hematology and Cell countson 02-14-2022 Erythrocyte distribution width (RBC) [Entitic vol] 50.8 fL 35.1-43.9 [facility] Work Phone: [phone] Erythrocyte distribution width (RBC) [Ratio] 15.5 % 11.6-14.6 [facility] Work Phone: Immature granulocytes/100 WBC (Bld) 0.600 % 0.0-0.9 [facility] Work Phone: Comment on above: IG% - Immature Granu locytes (promyelocytes, myelocytes and metamyelocytes) > 1% indicates that a LEFT SHIFT is Present. MCH (RBC) [Entitic mass] 28.1 pg 27.0-32.0 [facility] Work Phone: Nucleated RBC/100 WBC (Bld) [Ratio] 0 % 0-5 [facility] Work Phone: MCHC Auto (RBC) [Mass/Vol]on 02-14-2022 MCHC (RBC) [Mass/Vol] 31.6 g/dL 32-36 [facility] Work Phone: Mucus LM Ql (Urine sed)Order ed By: Dr. Walker on 02-14-2022 Mucus Ql (Urine sed) 0 SEEN /hpf [facility] Nitrite Test strip Ql (U)Ord ered By: Dr. Walker on 02-14-2022 Nitrite Ql (U) Negative Negative [facility] No Panel InformationOrdered By: Dr. Walker on 02-14-2022 D-Dimer Quantitative (PE/DVT) 1.88 FEU/ug/m 0.27-0.49 [facility] Comment on above: D-Dimer ELEVATED (>0 .49): Additional studies and clinicalassessments are indicated to conclude diagnosis of:Deep Vein Thrombosis (DVT) or Pulmonary Embolism (PE)CRITICAL VALUE VERIFIED. [facility] 0364 Claire Nair.RESULTS READ BACK BY SAME . Troponin I High Sensitivity 12 pg/mL 3.0-78.0 [facility] Comment on above: Please Note: New Nicole t Units and Gender Specific Reference Ranges. For more information see Policy Stat Procedure [place] High Sensitivity Troponin (TNIH) and attachments. 1.88 FEU/ug/m 0.27-0.49 [facility] 12 pg/mL 3.0-78.0 [facility] 204.9 pg/mL 0-100 [facility] No Panel Informationon 02-14 Estimated Creatinine Clearance Calc 49.39 ml/min [facility] Work Phone: Estimated GFR (MDRD) Amer 62 mL/min >60 [facility] Work Phone: Comment on above: GFR Calc Estimated GFR (MDRD) Non-Af Amer 51 mL/min >60 [facility] Work Phone: Comment on above: Non- GFR Calc Platelets bldon 02-14-2022 Platelets (Bld) [#/Vol] 295 10*3/uL 150-450 [facility] Work Phone: Protein Test strip Ql (U)Ord ered By: Dr. Walker on 02-14-2022 Protein Ql (U) 30 mg/dl Negative [facility] Serum or plasma calcium yocasta urement (mass/volume)on 02-14-2022 Calcium [Mass/Vol] 9.3 mg/dL 8.5-10.1 [facility] Work Phone: Serum or plasma creatinine m easurement (mass/volume)on 02-14-2022 Creatinine [Mass/Vol] 1.44 mg/dL 0.70-1.30 [facility] Work Phone: Comment on above: The validity of the calculated GFR & GFRAA in patients over 70 years has not been determined. Clinical correlation is essential. Serum or plasma urea nitroge n measurement (mass/volume)on 02-14-2022 Urea nitrogen [Mass/Vol] 39 mg/dL 7-18 [facility] Work Phone: [phone] Squamous epithelial cells de tection in urine sediment by light microscopyOrdered By: Dr. Walker on 02-14-2022 Epithelial cells.squamous LM Ql (Urine sed) 0-5 SEEN /hpf 0-5 [facility] Thin prep Papanicolaou smear with manual screeningon 02-14-2022 Thin prep Papanicolaou smear with manual screening 4 5-15 [facility] Work Phone: [phone] Urine blood detectionOrdered By: Dr. Walker on 02-14-2022 RBC Ql (U) 25 /ul Negative [facility] RBC Ql (U) 5-10 SEEN /hpf 0-5 [facility] Urine clarityOrdered By: Dr. Walker on 02-14-2022 Clarity (U) Sl. Cloudy Clear [facility] Urine color determinationOrd ered By: Dr. Walker on 02-14-2022 Color (U) Yellow Yellow [facility] Urine glucose detectionOrder ed By: Dr. Walker on 02-14-2022 Glucose Ql (U) Normal mg/dl Normal [facility] Urine leukocyte esterase det ection by dipstickOrdered By: Dr. Walker on 02-14-2022 Leukocyte esterase Test strip Ql (U) 500 /ul Negative [facility] Urine pHOrdered By: Dr. Cindy ryan on 02-14-2022 pH (U) 5.0 [pH] 5.0 - 8.0 [facility] Urine sediment bacteria coun t by microscopy (number/high power field)Ordered By: Dr. Walker on 02-14-2022 Bacteria LM.HPF (Urine sed) [#/Area] RARE /hpf None Seen [facility] Urine specific gravity measu rementOrdered By: Dr. Walker on 02-14-2022 Specific gravity (U) [Rel density] 1.015 1.002-1.030 [facility] Urobilinogen Auto test strip Ql (U)Ordered By: Dr. Walker on 02-14-2022 Urobilinogen Ql (U) Normal mg/dl Normal [facility] Basophil percentageOrdered B y: DANNIELLE PIÑA on 02-06-2022 Basophils (Bld) [#/Vol] 9.4 10*3/uL 4.4-11.0 [facility] WBC (Bld) [#/Vol] 9.4 10*3/uL 4.4-11.0 [facility] Blood erythrocytes count (nu mber/volume)Ordered By: DANNIELLE PIÑA on 02-06-2022 RBC (Bld) [#/Vol] 3.50 10*6/uL 4.6-6.2 [facility] Blood hemoglobin measurement (mass/volume)Ordered By: DANNIELLE PIÑA on 02-06-2022 Hemoglobin (Bld) [Mass/Vol] 10.0 g/dL 13.0-16.5 [facility] Blood platelet mean volumeOr dered By: DANNIELLE PIÑA on 02-06-2022 Platelet mean volume (Bld) [Entitic vol] 10.9 fL 6.2-12.0 [facility] Determination of erythrocyte mean corpuscular volume (MCV)Ordered By: DANNIELLE PIÑA on 02-06-2022 MCV (RBC) [Entitic vol] 89.7 fL 80-94 [facility] Hematocrit Auto (Bld) [Volum e fraction]Ordered By: DANNIELLE PIÑA on 02-06-2022 Hematocrit (Bld) [Volume fraction] 31.4 % 40-54 [facility] Laboratory - Hematology and Cell countsOrdered By: DANNIELLE PIÑA on 02-06-2022 Erythrocyte distribution width (RBC) [Entitic vol] 52.0 fL 35.1-43.9 [facility] Erythrocyte distribution width (RBC) [Ratio] 16.0 % 11.6-14.6 [facility] MCH (RBC) [Entitic mass] 28.6 pg 27.0-32.0 [facility] MCHC Auto (RBC) [Mass/Vol]Or dered By: DANNIELLE PIÑA on 02-06-2022 MCHC (RBC) [Mass/Vol] 31.8 g/dL 32-36 [facility] No Panel InformationOrdered By: DANNIELLE PIÑA on 02-06-2022 28.6 pg 27.0-32.0 [facility] 16.0 % 11.6-14.6 [facility] 52.0 fl 35.1-43.9 [facility] Platelets bldOrdered By: EDWARD NEWSOME on 02-06-2022 Platelets (Bld) [#/Vol] 325 10*3/uL 150-450 [facility] Absolute lymphocyte countOrd ered By: Dr. Zapata on 02-05-2022 Lymphocytes Auto (Unsp spec) [#/Vol] 3.30 10*3/uL 0.83-4.51 [facility] Basophil percentageOrdered B y: Dr. Zapata on 02-05-2022 Basophil percentage 196 mg/dL 74-106 [facility] Basophil percentage 6.8 g/dL 6.4-8.2 [facility] Basophil percentage 0.50 mg/dL 0.20-1.00 [facility] Basophil percentage 141 mmol/L 136-145 [facility] Basophil percentage 4.3 mmol/L 3.5-5.1 [facility] Basophil percentage 109 mmol/L 98-107 [facility] Basophils (Bld) [#/Vol] 11.4 10*3/uL 4.4-11.0 [facility] Basophils (Bld) [#/Vol] 5.4 10*3/uL 2.0-7.7 [facility] Basophils/100 WBC (Bld) 0.6 % 0-1 [facility] Basophils/100 WBC (Bld) 47.0 % 47-70 [facility] Basophils/100 WBC (Bld) 11.9 % 0-5 [facility] Basophil percentageon 2021 Bilirubin [Mass/Vol] 0.50 mg/dL 0.20-1.00 [facility] Work Phone: Comment on above: For patients on eltr ombopag therapy, use of Dimension [place] TBIL is not recommended. Chloride [Moles/Vol] 109 mmol/L 98-107 [facility] Work Phone: Eosinophils/100 WBC (Bld) 11.9 % 0-5 [facility] Work Phone: Glucose [Mass/Vol] 196 mg/dL 74-106 [facility] Work Phone: Comment on above: Fasting Glucose resu lt greater than or equal to 126 mg/dL suggests DIABETES MELLITUS per A.D.A. criteria. Neutrophils (Bld) [#/Vol] 5.4 10*3/uL 2.0-7.7 [facility] Work Phone: Neutrophils/100 WBC (Bld) 47.0 % 47-70 [facility] Work Phone: Potassium [Moles/Vol] 4.3 mmol/L 3.5-5.1 [facility] Work Phone: Protein [Mass/Vol] 6.8 g/dL 6.4-8.2 [facility] Work Phone: Sodium [Moles/Vol] 141 mmol/L 136-145 [facility] Work Phone: WBC (Bld) [#/Vol] 11.4 10*3/uL 4.4-11.0 [facility] Work Phone: Blood erythrocytes count (nu mber/volume)Ordered By: Dr. Zapata on 02-05-2022 RBC (Bld) [#/Vol] 3.87 10*6/uL 4.6-6.2 [facility] Blood hemoglobin measurement (mass/volume)Ordered By: Dr. Zapata on 02-05-2022 Hemoglobin (Bld) [Mass/Vol] 10.8 g/dL 13.0-16.5 [facility] Blood lymphocytes/100 leukoc ytesOrdered By: Dr. Zapata on 02-05-2022 Lymphocytes/100 WBC (Bld) 28.9 % 19-41 [facility] Blood monocytes/100 leukocyt esOrdered By: Dr. Zapata on 02-05-2022 Monocytes/100 WBC (Bld) 10.5 % 0-10 [facility] Blood platelet mean volumeOr dered By: Dr. Zapata on 02-05-2022 Platelet mean volume (Bld) [Entitic vol] 9.8 fL 6.2-12.0 [facility] Determination of erythrocyte mean corpuscular volume (MCV)Ordered By: Dr. Zapata on 02-05-2022 MCV (RBC) [Entitic vol] 90.2 fL 80-94 [facility] Hematocrit Auto (Bld) [Volum e fraction]Ordered By: Dr. Zapata on 02-05-2022 Hematocrit (Bld) [Volume fraction] 34.9 % 40-54 [facility] Iron measurement (mass/mass) Ordered By: Dr. Zapata on 02-05-2022 Iron (Unsp spec) [Mass/Mass] 88 ug/dL 65-175 [facility] Laboratory - Chemistry and C hemistry - challengeon 02-05-2022 ALP [Catalytic activity/Vol] 92 U/L 45-117 [facility] Work Phone: ALT [Catalytic activity/Vol] 18 U/L 16-61 [facility] Work Phone: CO2 [Moles/Vol] 27.0 mmol/L 21.0-32.0 [facility] Work Phone: Globulin (S) [Mass/Vol] 3.3 g/dL 2.2-4.2 [facility] Work Phone: Urea nitrogen/Creatinine [Mass ratio] 23.9 mg/mg 10-20 [facility] Work Phone: Laboratory - Chemistry and C hemistry - challengeOrdered By: Dr. Zapata on 02-05-2022 Cobalamin (Vitamin B12) [Mass/Vol] 941 pg/mL 211-911 [facility] Laboratory - Hematology and Cell countson 02-05-2022 Erythrocyte distribution width (RBC) [Entitic vol] 53.1 fL 35.1-43.9 [facility] Work Phone: Erythrocyte distribution width (RBC) [Ratio] 16.2 % 11.6-14.6 [facility] Work Phone: [phone] Immature granulocytes/100 WBC (Bld) 1.100 % 0.0-0.9 [facility] Work Phone: [phone] Comment on above: IG% - Immature Granu locytes (promyelocytes, myelocytes and metamyelocytes) > 1% indicates that a LEFT SHIFT is Present. MCH (RBC) [Entitic mass] 27.9 pg 27.0-32.0 [facility] Work Phone: Nucleated RBC/100 WBC (Bld) [Ratio] 0 % 0-5 [facility] Work Phone: MCHC Auto (RBC) [Mass/Vol]Or dered By: Dr. Zapata on 02-05-2022 MCHC (RBC) [Mass/Vol] 30.9 g/dL 32-36 [facility] No Panel Informationon 02-05 Estimated Creatinine Clearance Calc 53.07 ml/min [facility] Work Phone: Estimated GFR (MDRD) Amer 67 mL/min >60 [facility] Work Phone: Comment on above: GFR Calc Estimated GFR (MDRD) Non-Af Amer 56 mL/min >60 [facility] Work Phone: Comment on above: Non- GFR Calc Total Iron Binding Capacity 246 ug/dL 250-450 [facility] Work Phone: No Panel InformationOrdered By: Dr. Zapata on 02-05-2022 27.9 pg 27.0-32.0 [facility] 16.2 % 11.6-14.6 [facility] 53.1 fl 35.1-43.9 [facility] 1.100 % 0.0-0.9 [facility] 0 % 0-5 [facility] 56 mL/min >60 [facility] 67 mL/min >60 [facility] 53.07 ml/min [facility] 23.9 RATIO 10-20 [facility] 3.3 g/dL 2.2-4.2 [facility] 92 U/L 45-117 [facility] 18 U/L 16-61 [facility] 27.0 mmol/L 21.0-32.0 [facility] 941 pg/mL 211-911 [facility] 246 ug/dL 250-450 [facility] Platelets bldOrdered By: Dr. Zapata on 02-05-2022 Platelets (Bld) [#/Vol] 355 10*3/uL 150-450 [facility] Serum or plasma albumin yocasta urement (mass/volume)Ordered By: Dr. Zapata on 02-05-2022 Albumin [Mass/Vol] 3.5 g/dL 3.2-5.0 [facility] Serum or plasma albumin/glob ulin mass ratioOrdered By: Dr. Zapata on 02-05-2022 Albumin/Globulin [Mass ratio] 1.1 {ratio} 0.9-2.4 [facility] Serum or plasma calcium yocasta urement (mass/volume)Ordered By: Dr. Zapata on 02-05-2022 Calcium [Mass/Vol] 9.5 mg/dL 8.5-10.1 [facility] Serum or plasma creatinine m easurement (mass/volume)Ordered By: Dr. Zapata on 02-05-2022 Creatinine [Mass/Vol] 1.34 mg/dL 0.70-1.30 [facility] Comment on above: The validity of the calculated GFR & GFRAA in patients over 70 years has not been determined. Clinical correlation is essential. Serum or plasma ferritin vasquez surement (mass/volume)Ordered By: Dr. Zapata on 02-05-2022 Ferritin [Mass/Vol] 631 ng/mL 26-388 [facility] Serum or plasma folate measu rement (mass/volume)Ordered By: Dr. Zapata on 02-05-2022 Folate [Mass/Vol] 8.40 ng/mL 3.1-55.4 [facility] Serum or plasma iron saturat ion measurement (mass fraction)Ordered By: Dr. Zapata on 02-05-2022 Iron saturation [Mass fraction] 35.8 % 15.0-55.0 [facility] Serum or plasma urea nitroge n measurement (mass/volume)Ordered By: Dr. Zapata on 02-05-2022 Urea nitrogen [Mass/Vol] 32 mg/dL 7-18 [facility] Thin prep Papanicolaou smear with manual screeningOrdered By: Dr. Zapata on 02-05-2022 Thin prep Papanicolaou smear with manual screening 10 U/L 15-37 [facility] Thin prep Papanicolaou smear with manual screening 5 5-15 [facility] Thin prep Papanicolaou smear with manual screening 195 U/L 87-241 [facility] Basophil percentageOrdered B y: Khai Galeana on 01-15-2022 Basophils (Bld) [#/Vol] 8.3 10*3/uL 4.4-11.0 [facility] Basophil percentageon 2021 WBC (Bld) [#/Vol] 8.3 10*3/uL 4.4-11.0 [facility] Work Phone: Blood erythrocytes count (nu mber/volume)Ordered By: Khai Galeana on 01-15-2022 RBC (Bld) [#/Vol] 3.34 10*6/uL 4.6-6.2 [facility] Blood hemoglobin measurement (mass/volume)Ordered By: Khai Galeana on 01-15-2022 Hemoglobin (Bld) [Mass/Vol] 9.3 g/dL 13.0-16.5 [facility] Blood platelet mean volumeOr dered By: Khai Galeana on 01-15-2022 Platelet mean volume (Bld) [Entitic vol] 10.2 fL 6.2-12.0 [facility] Determination of erythrocyte mean corpuscular volume (MCV)Ordered By: Khai Galeana on 01-15-2022 MCV (RBC) [Entitic vol] 88.3 fL 80-94 [facility] Hematocrit Auto (Bld) [Volum e fraction]Ordered By: Khai Galeana on 01-15-2022 Hematocrit (Bld) [Volume fraction] 29.5 % 40-54 [facility] Laboratory - Hematology and Cell countson 01-15-2022 Erythrocyte distribution width (RBC) [Entitic vol] 55.7 fL 35.1-43.9 [facility] Work Phone: Erythrocyte distribution width (RBC) [Ratio] 17.2 % 11.6-14.6 [facility] Work Phone: MCH (RBC) [Entitic mass] 27.8 pg 27.0-32.0 [facility] Work Phone: MCHC Auto (RBC) [Mass/Vol]Or dered By: Khai Galeana on 01-15-2022 MCHC (RBC) [Mass/Vol] 31.5 g/dL 32-36 [facility] No Panel InformationOrdered By: Khai Galeana on 01-15-2022 27.8 pg 27.0-32.0 [facility] 17.2 % 11.6-14.6 [facility] 55.7 fl 35.1-43.9 [facility] Platelets bldOrdered By: Wagner Galeana on 01-15-2022 Platelets (Bld) [#/Vol] 334 10*3/uL 150-450 [facility] Absolute lymphocyte counton 12-26-2021 Lymphocytes Auto (Unsp spec) [#/Vol] 1.61 10*3/uL 0.83-4.51 [facility] Work Phone: Basophil percentageon 2021 Basophils/100 WBC (Bld) 0.7 % 0-1 [facility] Work Phone: Bilirubin [Mass/Vol] 0.40 mg/dL 0.20-1.00 [facility] Work Phone: Comment on above: For patients on eltr ombopag therapy, use of Dimension [place] TBIL is not recommended. Chloride [Moles/Vol] 108 mmol/L 98-107 [facility] Work Phone: Eosinophils/100 WBC (Bld) 8.3 % 0-5 [facility] Work Phone: Glucose [Mass/Vol] 196 mg/dL 74-106 [facility] Work Phone: Comment on above: Fasting Glucose resu lt greater than or equal to 126 mg/dL suggests DIABETES MELLITUS per A.D.A. criteria. Neutrophils (Bld) [#/Vol] 5.3 10*3/uL 2.0-7.7 [facility] Work Phone: Neutrophils/100 WBC (Bld) 62.0 % 47-70 [facility] Work Phone: Potassium [Moles/Vol] 4.4 mmol/L 3.5-5.1 [facility] Work Phone: Protein [Mass/Vol] 5.9 g/dL 6.4-8.2 [facility] Work Phone: Sodium [Moles/Vol] 139 mmol/L 136-145 [facility] Work Phone: WBC (Bld) [#/Vol] 8.5 10*3/uL 4.4-11.0 [facility] Work Phone: Blood erythrocytes count (nu mber/volume)on 12-26-2021 RBC (Bld) [#/Vol] 2.95 10*6/uL 4.6-6.2 [facility] Work Phone: Blood hemoglobin measurement (mass/volume)on 12-26-2021 Hemoglobin (Bld) [Mass/Vol] 8.4 g/dL 13.0-16.5 [facility] Work Phone: Blood lymphocytes/100 leukoc yteson 12-26-2021 Lymphocytes/100 WBC (Bld) 19.0 % 19-41 [facility] Work Phone: Blood monocytes/100 leukocyt eson 12-26-2021 Monocytes/100 WBC (Bld) 8.8 % 0-10 [facility] Work Phone: Blood platelet mean volumeon 12-26-2021 Platelet mean volume (Bld) [Entitic vol] 10.3 fL 6.2-12.0 [facility] Work Phone: Determination of erythrocyte mean corpuscular volume (MCV)on 12-26-2021 MCV (RBC) [Entitic vol] 89.2 fL 80-94 [facility] Work Phone: Hematocrit Auto (Bld) [Volum e fraction]on 12-26-2021 Hematocrit (Bld) [Volume fraction] 26.3 % 40-54 [facility] Work Phone: Hemoglobin in reticulocytes (mass per reticulocyte)Ordered By: Dr. Zapata on 12-26-2021 Hemoglobin (Reticulocytes) [Entitic mass] 28.7 pg 30-35 [facility] Iron measurement (mass/mass) on 12-26-2021 Iron (Unsp spec) [Mass/Mass] 54 ug/dL 65-175 [facility] Work Phone: Laboratory - Chemistry and C hemistry - challengeon 12-26-2021 ALP [Catalytic activity/Vol] 92 U/L 45-117 [facility] Work Phone: ALT [Catalytic activity/Vol] 24 U/L 16-61 [facility] Work Phone: CO2 [Moles/Vol] 25.0 mmol/L 21.0-32.0 [facility] Work Phone: [phone] Globulin (S) [Mass/Vol] 3.1 g/dL 2.2-4.2 [facility] Work Phone: [phone] Urea nitrogen/Creatinine [Mass ratio] 16.9 mg/mg 10-20 [facility] Work Phone: [phone] Laboratory - Hematology and Cell countson 12-26-2021 Erythrocyte distribution width (RBC) [Entitic vol] 59.1 fL 35.1-43.9 [facility] Work Phone: [phone] Erythrocyte distribution width (RBC) [Ratio] 18.3 % 11.6-14.6 [facility] Work Phone: [phone] Immature granulocytes/100 WBC (Bld) 1.200 % 0.0-0.9 [facility] Work Phone: [phone] Comment on above: IG% - Immature Granu locytes (promyelocytes, myelocytes and metamyelocytes) > 1% indicates that a LEFT SHIFT is Present. MCH (RBC) [Entitic mass] 28.5 pg 27.0-32.0 [facility] Work Phone: [phone] Nucleated RBC/100 WBC (Bld) [Ratio] 0 % 0-5 [facility] Work Phone: [phone] MCHC Auto (RBC) [Mass/Vol]on 12-26-2021 MCHC (RBC) [Mass/Vol] 31.9 g/dL 32-36 [facility] Work [facility]: [phone] Panel Informationon 12-26 Estimated GFR (MDRD) Amer 78 mL/min >60 [facility] Work Phone: [phone] Comment on above: GFR Calc Estimated GFR (MDRD) Non-Af Amer 64 mL/min >60 [facility] Work Phone: [phone] Comment on above: Non- GFR Calc Immature Reticulocyte Fraction 31.90 % 3.00-15.90 [facility] Work Phone: [phone] Reticulocyte Count 3.23 % 0.5-1.5 [facility] Work Phone: Total Iron Binding Capacity 235 ug/dL 250-450 [facility] Work Phone: No Panel InformationOrdered By: Dr. Zapata on 12-26-2021 Immature Platelet Fraction 28.7 % 1.0-7.9 [facility] Comment on above: Low PLT + Low IPF joyce ggest a bone marrow production disorderLow PLT + high IPF suggests peripheral destruction(e.g.ITP, TTP, HIT, DIC, autoimmune) or bone marrow recoveryTrending of serial IPF measurements is recommended when evaluating for bone marrow responesValue above normal range indicates an increase in RBC cellular response from bone marrow. 3.23 % 0.5-1.5 [facility] 31.90 % 3.00-15.90 [facility] 28.7 % 1.0-7.9 [facility] Platelets bldon 12-26-2021 Platelets (Bld) [#/Vol] 221 10*3/uL 150-450 [facility] Work Phone: Serum or plasma albumin yocasta urement (mass/volume)on 12-26-2021 Albumin [Mass/Vol] 2.8 g/dL 3.2-5.0 [facility] Work Phone: Serum or plasma albumin/glob ulin mass ratioon 12-26-2021 Albumin/Globulin [Mass ratio] 0.9 {ratio} 0.9-2.4 [facility] Work Phone: Serum or plasma calcium yocasta urement (mass/volume)on 12-26-2021 Calcium [Mass/Vol] 8.4 mg/dL 8.5-10.1 [facility] Work Phone: Serum or plasma creatinine m easurement (mass/volume)on 12-26-2021 Creatinine [Mass/Vol] 1.18 mg/dL 0.70-1.30 [facility] Work Phone: Comment on above: The validity of the calculated GFR & GFRAA in patients over 70 years has not been determined. Clinical correlation is essential. Serum or plasma ferritin vasquez surement (mass/volume)on 12-26-2021 Ferritin [Mass/Vol] 160 ng/mL 26-388 [facility] Work Phone: Serum or plasma iron saturat ion measurement (mass fraction)on 12-26-2021 Iron saturation [Mass fraction] 23.0 % 15.0-55.0 [facility] Work Phone: Serum or plasma urea nitroge n measurement (mass/volume)on 12-26-2021 Urea nitrogen [Mass/Vol] 20 mg/dL 7-18 [facility] Work Phone: Thin prep Papanicolaou smear with manual screeningon 12-26-2021 Thin prep Papanicolaou smear with manual screening 13 U/L 15-37 [facility] Work Phone: Thin prep Papanicolaou smear with manual screening 6 5-15 [facility] Work Phone: Thin prep Papanicolaou smear with manual screening 213 U/L 87-241 [facility] Work Phone: Absolute lymphocyte countOrd ered By: Khai Galeana on 12-21-2021 Lymphocytes Auto (Unsp spec) [#/Vol] 1.52 10*3/uL 0.83-4.51 [facility] Basophil percentageOrdered B y: Khai Galeana on 12-21-2021 Basophils (Bld) [#/Vol] 10.1 10*3/uL 4.4-11.0 [facility] Basophils (Bld) [#/Vol] 6.5 10*3/uL 2.0-7.7 [facility] Basophils/100 WBC (Bld) 0.4 % 0-1 [facility] Basophils/100 WBC (Bld) 64.3 % 47-70 [facility] Basophils/100 WBC (Bld) 8.4 % 0-5 [facility] Basophil percentageon 2021 Eosinophils/100 WBC (Bld) 8.4 % 0-5 [facility] Work Phone: Neutrophils (Bld) [#/Vol] 6.5 10*3/uL 2.0-7.7 [facility] Work Phone: Neutrophils/100 WBC (Bld) 64.3 % 47-70 [facility] Work Phone: WBC (Bld) [#/Vol] 10.1 10*3/uL 4.4-11.0 [facility] Work Phone: Blood erythrocytes count (nu mber/volume)Ordered By: Khai Galeana on 12-21-2021 RBC (Bld) [#/Vol] 3.50 10*6/uL 4.6-6.2 [facility] Blood hemoglobin measurement (mass/volume)Ordered By: Khai Galeana on 12-21-2021 Hemoglobin (Bld) [Mass/Vol] 9.8 g/dL 13.0-16.5 [facility] Blood lymphocytes/100 leukoc ytesOrdered By: Khai Galeana on 12-21-2021 Lymphocytes/100 WBC (Bld) 15.1 % 19-41 [facility] Blood monocytes/100 leukocyt esOrdered By: Khai Galeana on 12-21-2021 Monocytes/100 WBC (Bld) 9.6 % 0-10 [facility] Blood platelet mean volumeOr dered By: Khai Galeana on 12-21-2021 Platelet mean volume (Bld) [Entitic vol] 10.8 fL 6.2-12.0 [facility] Determination of erythrocyte mean corpuscular volume (MCV)Ordered By: Khai Galeana on 12-21-2021 MCV (RBC) [Entitic vol] 90.0 fL 80-94 [facility] Hematocrit Auto (Bld) [Volum e fraction]Ordered By: Khai Galeana on 12-21-2021 Hematocrit (Bld) [Volume fraction] 31.5 % 40-54 [facility] Laboratory - Hematology and Cell countson 12-21-2021 Erythrocyte distribution width (RBC) [Entitic vol] 63.5 fL 35.1-43.9 [facility] Work Phone: Erythrocyte distribution width (RBC) [Ratio] 19.1 % 11.6-14.6 [facility] Work Phone: Immature granulocytes/100 WBC (Bld) 2.200 % 0.0-0.9 [facility] Work Phone: Comment on above: IG% - Immature Granu locytes (promyelocytes, myelocytes and metamyelocytes) > 1% indicates that a LEFT SHIFT is Present. MCH (RBC) [Entitic mass] 28.0 pg 27.0-32.0 [facility] Work Phone: Nucleated RBC/100 WBC (Bld) [Ratio] 0 % 0-5 [facility] Work Phone: MCHC Auto (RBC) [Mass/Vol]Or dered By: Khai Galeana on 12-21-2021 MCHC (RBC) [Mass/Vol] 31.1 g/dL 32-36 [facility] No Panel InformationOrdered By: Khai Galeana on 12-21-2021 28.0 pg 27.0-32.0 [facility] 19.1 % 11.6-14.6 [facility] 63.5 fl 35.1-43.9 [facility] 2.200 % 0.0-0.9 [facility] 0 % 0-5 [facility] Platelets bldOrdered By: Wagner Galeana on 12-21-2021 Platelets (Bld) [#/Vol] 242 10*3/uL 150-450 [facility] No Panel InformationOrdered By: Dr. Joy on 12-14-2021 No growth in 5 days. [facility] Absolute lymphocyte countOrd ered By: Dr. Rosas on 12-11-2021 Lymphocytes Auto (Unsp spec) [#/Vol] 0.92 10*3/uL 0.83-4.51 [facility] Basophil percentageOrdered B y: Dr. Rosas on 12-11-2021 Basophil percentage 324 mg/dL 74-106 [facility] Basophil percentage 5.2 g/dL 6.4-8.2 [facility] Basophil percentage 0.30 mg/dL 0.20-1.00 [facility] Basophil percentage 141 mmol/L 136-145 [facility] Basophil percentage 5.0 mmol/L 3.5-5.1 [facility] Basophil percentage 109 mmol/L 98-107 [facility] Basophils (Bld) [#/Vol] 8.9 10*3/uL 4.4-11.0 [facility] Basophils (Bld) [#/Vol] 7.4 10*3/uL 2.0-7.7 [facility] Basophils/100 WBC (Bld) 0.1 % 0-1 [facility] Basophils/100 WBC (Bld) 83.3 % 47-70 [facility] Basophils/100 WBC (Bld) 0.0 % 0-5 [facility] Basophil percentageon 2021 Bilirubin [Mass/Vol] 0.30 mg/dL 0.20-1.00 [facility] Work Phone: Comment on above: For patients on eltr ombopag therapy, use of Dimension [place] TBIL is not recommended. Chloride [Moles/Vol] 109 mmol/L 98-107 [facility] Work Phone: Eosinophils/100 WBC (Bld) 0.0 % 0-5 [facility] Work Phone: Glucose [Mass/Vol] 324 mg/dL 74-106 [facility] Work Phone: Comment on above: Glucose result great er than or equal to 200 mg/dLsuggests DIABETES MELLITUS per A.D.A. criteria. Neutrophils (Bld) [#/Vol] 7.4 10*3/uL 2.0-7.7 [facility] Work Phone: Neutrophils/100 WBC (Bld) 83.3 % 47-70 [facility] Work Phone: Potassium [Moles/Vol] 5.0 mmol/L 3.5-5.1 [facility] Work Phone: Protein [Mass/Vol] 5.2 g/dL 6.4-8.2 [facility] Work Phone: Sodium [Moles/Vol] 141 mmol/L 136-145 [facility] Work Phone: WBC (Bld) [#/Vol] 8.9 10*3/uL 4.4-11.0 [facility] Work Phone: Blood erythrocytes count (nu mber/volume)Ordered By: Dr. Rosas on 12-11-2021 RBC (Bld) [#/Vol] 2.86 10*6/uL 4.6-6.2 [facility] Blood hemoglobin measurement (mass/volume)Ordered By: Dr. Rosas on 12-11-2021 Hemoglobin (Bld) [Mass/Vol] 8.1 g/dL 13.0-16.5 [facility] Blood lymphocytes/100 leukoc ytesOrdered By: Dr. Rosas on 12-11-2021 Lymphocytes/100 WBC (Bld) 10.4 % 19-41 [facility] Blood monocytes/100 leukocyt esOrdered By: Dr. Rosas on 12-11-2021 Monocytes/100 WBC (Bld) 4.7 % 0-10 [facility] Blood platelet mean volumeOr dered By: Dr. Rosas on 12-11-2021 Platelet mean volume (Bld) [Entitic vol] 11.2 fL 6.2-12.0 [facility] Determination of erythrocyte mean corpuscular volume (MCV)Ordered By: Dr. Rosas on 12-11-2021 MCV (RBC) [Entitic vol] 88.5 fL 80-94 [facility] Glucose Glucometer (BldC) [M ass/Vol]Ordered By: Dr. Ortiz on 12-11-2021 Glucose [Mass/Vol] 283 mg/dL 74-106 [facility] Comment on above: MANAGEMENT OF PATIEN T CARE PER NURSING PROTOCOL Hematocrit Auto (Bld) [Volum e fraction]Ordered By: Dr. Rosas on 12-11-2021 Hematocrit (Bld) [Volume fraction] 25.3 % 40-54 [facility] Laboratory - Chemistry and C hemistry - challengeon 12-11-2021 ALP [Catalytic activity/Vol] 66 U/L 45-117 [facility] Work Phone: ALT [Catalytic activity/Vol] 20 U/L 16-61 [facility] Work Phone: [phone] CO2 [Moles/Vol] 27.0 mmol/L 21.0-32.0 [facility] Work Phone: [phone] Globulin (S) [Mass/Vol] 2.7 g/dL 2.2-4.2 [facility] Work Phone: [phone] Urea nitrogen/Creatinine [Mass ratio] 30.4 mg/mg 10-20 [facility] Work Phone: [phone] Laboratory - Hematology and Cell countson 12-11-2021 Erythrocyte distribution width (RBC) [Entitic vol] 56.6 fL 35.1-43.9 [facility] Work Phone: [phone] Erythrocyte distribution width (RBC) [Ratio] 17.5 % 11.6-14.6 [facility] Work Phone: [phone] Immature granulocytes/100 WBC (Bld) 1.500 % 0.0-0.9 [facility] Work Phone: [phone] Comment on above: IG% - Immature Granu locytes (promyelocytes, myelocytes and metamyelocytes) > 1% indicates that a LEFT SHIFT is Present. MCH (RBC) [Entitic mass] 28.3 pg 27.0-32.0 [facility] Work Phone: [phone] Nucleated RBC/100 WBC (Bld) [Ratio] 0.2 % 0-5 [facility] Work Phone: [phone] MCHC Auto (RBC) [Mass/Vol]Or dered By: Dr. Rosas on 12-11-2021 MCHC (RBC) [Mass/Vol] 32.0 g/dL 32-36 [facility] No Panel Informationon 12-11 Estimated Creatinine Clearance Calc 61.84 ml/min [facility] Work Phone: [phone] Estimated GFR (MDRD) Amer 80 mL/min >60 [facility] Work Phone: [phone] Comment on above: GFR Calc Estimated GFR (MDRD) Non-Af Amer 66 mL/min >60 [facility] Work Phone: [phone] Comment on above: Non- GFR Calc No Panel InformationOrdered By: Dr. Rosas on 12-11-2021 28.3 pg 27.0-32.0 [facility] 17.5 % 11.6-14.6 [facility] 56.6 fl 35.1-43.9 [facility] 1.500 % 0.0-0.9 [facility] 0.2 % 0-5 [facility] 66 mL/min >60 [facility] 80 mL/min >60 [facility] 61.84 ml/min [facility] 30.4 RATIO 10-20 [facility] 2.7 g/dL 2.2-4.2 [facility] 66 U/L 45-117 [facility] 20 U/L 16-61 [facility] 27.0 mmol/L 21.0-32.0 [facility] Platelets bldOrdered By: Dr. Rosas on 12-11-2021 Platelets (Bld) [#/Vol] 239 10*3/uL 150-450 [facility] Serum or plasma albumin yocasta urement (mass/volume)Ordered By: Dr. Rosas on 12-11-2021 Albumin [Mass/Vol] 2.5 g/dL 3.2-5.0 [facility] Serum or plasma albumin/glob ulin mass ratioOrdered By: Dr. Rosas on 12-11-2021 Albumin/Globulin [Mass ratio] 0.9 {ratio} 0.9-2.4 [facility] Serum or plasma calcium yocasta urement (mass/volume)Ordered By: Dr. Rosas on 12-11-2021 Calcium [Mass/Vol] 8.4 mg/dL 8.5-10.1 [facility] Serum or plasma creatinine m easurement (mass/volume)Ordered By: Dr. Rosas on 12-11-2021 Creatinine [Mass/Vol] 1.15 mg/dL 0.70-1.30 [facility] Comment on above: The validity of the calculated GFR & GFRAA in patients over 70 years has not been determined. Clinical correlation is essential. Serum or plasma urea nitroge n measurement (mass/volume)Ordered By: Dr. Rosas on 12-11-2021 Urea nitrogen [Mass/Vol] 35 mg/dL 7-18 [facility] Thin prep Papanicolaou smear with manual screeningOrdered By: Dr. Rosas on 12-11-2021 Thin prep Papanicolaou smear with manual screening 12 U/L 15-37 [facility] Thin prep Papanicolaou smear with manual screening 5 5-15 [facility] INR in Blood by Coagulation assayOrdered By: Dr. Chen on 12-10-2021 INR Coag (Bld) [Relative time] 1.2 {INR} [facility] Laboratory - Coagulationon 1 aPTT Coag (Bld) [Time] 24.6 s 24.1-36.2 [facility] Work Phone: PT Coag (PPP) [Time] 14.8 s 11.7-14.9 [facility] Work Phone: Microbial respiratory cultur eOrdered By: Dr. Joy on 12-10-2021 Bacteria identified Respiratory culture Nom (Unsp spec) or Staphylococcus aureus isolated. [facility] No Panel InformationOrdered By: Dr. Chen on 12-10-2021 14.8 SECONDS 11.7-14.9 [facility] 24.6 Seconds 24.1-36.2 [facility] Whole blood hemoglobin A1c/t otal hemoglobin ratio (mass fraction)Ordered By: Dr. Chen on 12-10-2021 HbA1c (Bld) [Mass fraction] 8.5 % 3.8-5.6 [facility] Comment on above: Normal < 5.7 % Predi abetic 5.7 - 6.4 % Diabetic >or= 6.5 % Please note range changes. Gram stain for investigation of transfusion reactionOrdered By: Dr. Joy on 12-09-2021 Microscopic observation Gram stain Nom (Unsp spec) [facility] Lower GI hemoglobin IA Ql (S tl)Ordered By: Dr. Rosas on 12-09-2021 Stool gastrointestinal hemoglobin detection by immunologic method Positive [facility] Respiratory pathogens DNA an d RNA 12b panel JUSTIN+probe (Unsp spec)Ordered By: Dr. Mackey on 12-09-2021 Rhinovirus [facility] Urine Legionella pneumophila antigen detectionOrdered By: Dr. Mackey on 12-09-2021 L. pneumophila Ag Ql (U) [facility] Absolute lymphocyte counton 12-08-2021 Lymphocytes Auto (Unsp spec) [#/Vol] 1.72 10*3/uL 0.83-4.51 [facility] Work Phone: Basophil percentageon 2021 Basophils/100 WBC (Bld) 0.7 % 0-1 [facility] Work Phone: Chloride [Moles/Vol] 110 mmol/L 98-107 [facility] Work Phone: Eosinophils/100 WBC (Bld) 3.8 % 0-5 [facility] Work Phone: Glucose [Mass/Vol] 200 mg/dL 74-106 [facility] Work Phone: Comment on above: Glucose result great er than or equal to 200 mg/dLsuggests DIABETES MELLITUS per A.D.A. criteria. Neutrophils (Bld) [#/Vol] 7.9 10*3/uL 2.0-7.7 [facility] Work Phone: Neutrophils/100 WBC (Bld) 68.8 % 47-70 [facility] Work Phone: Potassium [Moles/Vol] 4.0 mmol/L 3.5-5.1 [facility] Work Phone: Sodium [Moles/Vol] 143 mmol/L 136-145 [facility] Work Phone: WBC (Bld) [#/Vol] 11.5 10*3/uL 4.4-11.0 [facility] Work Phone: Blood erythrocytes count (nu mber/volume)on 12-08-2021 RBC (Bld) [#/Vol] 3.36 10*6/uL 4.6-6.2 [facility] Work Phone: Blood hemoglobin measurement (mass/volume)on 12-08-2021 Hemoglobin (Bld) [Mass/Vol] 9.0 g/dL 13.0-16.5 [facility] Work Phone: Blood lymphocytes/100 leukoc yteson 12-08-2021 Lymphocytes/100 WBC (Bld) 15.0 % 19-41 [facility] Work Phone: Blood monocytes/100 leukocyt eson 12-08-2021 Monocytes/100 WBC (Bld) 9.0 % 0-10 [facility] Work Phone: Blood platelet mean volumeon 12-08-2021 Platelet mean volume (Bld) [Entitic vol] 9.9 fL 6.2-12.0 [facility] Work Phone: Determination of erythrocyte mean corpuscular volume (MCV)on 12-08-2021 MCV (RBC) [Entitic vol] 88.7 fL 80-94 [facility] Work Phone: Hematocrit Auto (Bld) [Volum e fraction]on 12-08-2021 Hematocrit (Bld) [Volume fraction] 29.8 % 40-54 [facility] Work Phone: Laboratory - Chemistry and C hemistry - challengeon 12-08-2021 CO2 [Moles/Vol] 26.0 mmol/L 21.0-32.0 [facility] Work Phone: Natriuretic peptide B (Bld) [Mass/Vol] 191.0 pg/mL 0-100 [facility] Work Phone: Urea nitrogen/Creatinine [Mass ratio] 19.3 mg/mg 10-20 [facility] Work Phone: Laboratory - Hematology and Cell countson 12-08-2021 Erythrocyte distribution width (RBC) [Entitic vol] 57.9 fL 35.1-43.9 [facility] Work Phone: Erythrocyte distribution width (RBC) [Ratio] 17.9 % 11.6-14.6 [facility] Work Phone: Immature granulocytes/100 WBC (Bld) 2.700 % 0.0-0.9 [facility] Work Phone: Comment on above: IG% - Immature Granu locytes (promyelocytes, myelocytes and metamyelocytes) > 1% indicates that a LEFT SHIFT is Present. MCH (RBC) [Entitic mass] 26.8 pg 27.0-32.0 [facility] Work Phone: Nucleated RBC/100 WBC (Bld) [Ratio] 0 % 0-5 [facility] Work Phone: [phone] MCHC Auto (RBC) [Mass/Vol]on 12-08-2021 MCHC (RBC) [Mass/Vol] 30.2 g/dL 32-36 [facility] Work Phone: No Panel Informationon 12-08 Methicillin-Resist S.aureus DNA PCR Negative Negative [facility] Work Phone: D-Dimer Quantitative (PE/DVT) 1.50 FEU/ug/m 0.27-0.49 [facility] Work Phone: [phone] Comment on above: CRITICAL VALUE VERIF IED. CALLED TO [id number]/15/22 1750 Tim Oliva.RESULTS READ BACK BY SAME . D-Dimer ELEVATED (>0.49): Additional studies and clinicalassessments are indicated to conclude diagnosis of:Deep Vein Thrombosis (DVT) or Pulmonary Embolism (PE) Estimated Creatinine Clearance Calc 59.76 ml/min [facility] Work Phone: Estimated GFR (MDRD) Amer 77 mL/min >60 [facility] Work Phone: [phone] Comment on above: GFR Calc Estimated GFR (MDRD) Non-Af Amer 64 mL/min >60 [facility] Work Phone: Comment on above: Non- GFR Calc Troponin I High Sensitivity 11 pg/mL 3.0-78.0 [facility] Work Phone: Comment on above: Please Note: New Nicole t Units and Gender Specific Reference Ranges. For more information see Policy Stat Procedure [place] High Sensitivity Troponin (TNIH) and attachments. No Panel InformationOrdered By: Dr. Mackey on 12-08-2021 Negative Negative [facility] No Panel InformationOrdered By: Dr. Joy on 12-08-2021 1.50 FEU/ug/m 0.27-0.49 [facility] 11 pg/mL 3.0-78.0 [facility] 191.0 pg/mL 0-100 [facility] Platelets bldon 12-08-2021 Platelets (Bld) [#/Vol] 352 10*3/uL 150-450 [facility] Work Phone: Serum or plasma calcium yocasta urement (mass/volume)on 12-08-2021 Calcium [Mass/Vol] 9.1 mg/dL 8.5-10.1 [facility] Work Phone: Serum or plasma creatinine m easurement (mass/volume)on 12-08-2021 Creatinine [Mass/Vol] 1.19 mg/dL 0.70-1.30 [facility] Work Phone: Comment on above: The validity of the calculated GFR & GFRAA in patients over 70 years has not been determined. Clinical correlation is essential. Serum or plasma urea nitroge n measurement (mass/volume)on 12-08-2021 Urea nitrogen [Mass/Vol] 23 mg/dL 7-18 [facility] Work Phone: Thin prep Papanicolaou smear with manual screeningon 12-08-2021 Thin prep Papanicolaou smear with manual screening 7 - [facility] Work Phone: Basophil percentageon 2021 WBC (Bld) [#/Vol] 8.6 10*3/uL 4.4-11.0 [facility] Work Phone: Blood erythrocytes count (nu mber/volume)on 11-16-2021 RBC (Bld) [#/Vol] 3.80 10*6/uL 4.6-6.2 [facility] Work Phone: Blood hemoglobin measurement (mass/volume)on 11-16-2021 Hemoglobin (Bld) [Mass/Vol] 10.2 g/dL 13.0-16.5 [facility] Work Phone: Blood platelet mean volumeon 11-16-2021 Platelet mean volume (Bld) [Entitic vol] 10.9 fL 6.2-12.0 [facility] Work Phone: Determination of erythrocyte mean corpuscular volume (MCV)on 11-16-2021 MCV (RBC) [Entitic vol] 88.2 fL 80-94 [facility] Work Phone: [phone] Hematocrit Auto (Bld) [Volum e fraction]on 11-16-2021 Hematocrit (Bld) [Volume fraction] 33.5 % 40-54 [facility] Work Phone: Laboratory - Hematology and Cell countson 11-16-2021 Erythrocyte distribution width (RBC) [Entitic vol] 56.0 fL 35.1-43.9 [facility] Work Phone: [phone] Erythrocyte distribution width (RBC) [Ratio] 17.5 % 11.6-14.6 [facility] Work Phone: [phone] MCH (RBC) [Entitic mass] 26.8 pg 27.0-32.0 [facility] Work Phone: [phone] MCHC Auto (RBC) [Mass/Vol]on 11-16-2021 MCHC (RBC) [Mass/Vol] 30.4 g/dL 32-36 [facility] Work Phone: Platelets bldon 11-16-2021 Platelets (Bld) [#/Vol] 218 10*3/uL 150-450 [facility] Work Phone: [phone] Absolute lymphocyte counton 10-26-2021 Lymphocytes Auto (Unsp spec) [#/Vol] 0.85 10*3/uL 0.83-4.51 [facility] Work Phone: [phone] Basophil percentageon 2021 Basophils/100 WBC (Bld) 0.2 % 0-1 [facility] Work Phone: [phone] Bilirubin [Mass/Vol] 0.40 mg/dL 0.20-1.00 [facility] Work Phone: Comment on above: For patients on eltr ombopag therapy, use of Dimension [place] TBIL is not recommended. Chloride [Moles/Vol] 106 mmol/L 98-107 [facility] Work Phone: Eosinophils/100 WBC (Bld) 0.3 % 0-5 [facility] Work Phone: Glucose [Mass/Vol] 120 mg/dL 74-106 [facility] Work Phone: Comment on above: Fasting Glucose resu lt from 100 to 125 mg/dL suggests IMPAIRED HOMEOSTASIS per A.D.A. criteria. Neutrophils (Bld) [#/Vol] 6.8 10*3/uL 2.0-7.7 [facility] Work Phone: Neutrophils/100 WBC (Bld) 75.9 % 47-70 [facility] Work Phone: Potassium [Moles/Vol] 4.0 mmol/L 3.5-5.1 [facility] Work Phone: Protein [Mass/Vol] 5.3 g/dL 6.4-8.2 [facility] Work Phone: Sodium [Moles/Vol] 143 mmol/L 136-145 [facility] Work Phone: WBC (Bld) [#/Vol] 8.9 10*3/uL 4.4-11.0 [facility] Work Phone: Blood erythrocytes count (nu mber/volume)on 10-26-2021 RBC (Bld) [#/Vol] 3.44 10*6/uL 4.6-6.2 [facility] Work Phone: Blood hemoglobin measurement (mass/volume)on 10-26-2021 Hemoglobin (Bld) [Mass/Vol] 9.0 g/dL 13.0-16.5 [facility] Work Phone: Blood lymphocytes/100 leukoc yteson 10-26-2021 Lymphocytes/100 WBC (Bld) 9.6 % 19-41 [facility] Work Phone: Blood monocytes/100 leukocyt eson 10-26-2021 Monocytes/100 WBC (Bld) 12.5 % 0-10 [facility] Work Phone: [phone] Blood platelet mean volumeon 10-26-2021 Platelet mean volume (Bld) [Entitic vol] 10.2 fL 6.2-12.0 [facility] Work Phone: [phone] Determination of erythrocyte mean corpuscular volume (MCV)on 10-26-2021 MCV (RBC) [Entitic vol] 85.5 fL 80-94 [facility] Work Phone: Glucose Glucometer (BldC) [M ass/Vol]on 10-26-2021 Glucose [Mass/Vol] 236 mg/dL 74-106 [facility] Work Phone: Comment on above: MANAGEMENT OF PATIEN T CARE PER NURSING PROTOCOL Hematocrit Auto (Bld) [Volum e fraction]on 10-26-2021 Hematocrit (Bld) [Volume fraction] 29.4 % 40-54 [facility] Work Phone: Laboratory - Chemistry and C hemistry - challengeon 10-26-2021 ALP [Catalytic activity/Vol] 71 U/L 45-117 [facility] Work Phone: ALT [Catalytic activity/Vol] 11 U/L 16-61 [facility] Work Phone: [phone] CO2 [Moles/Vol] 30.0 mmol/L 21.0-32.0 [facility] Work Phone: [phone] Globulin (S) [Mass/Vol] 2.6 g/dL 2.2-4.2 [facility] Work Phone: [phone] Urea nitrogen/Creatinine [Mass ratio] 20.3 mg/mg 10-20 [facility] Work Phone: [phone] Laboratory - Hematology and Cell countson 10-26-2021 Erythrocyte distribution width (RBC) [Entitic vol] 49.1 fL 35.1-43.9 [facility] Work Phone: [phone] Erythrocyte distribution width (RBC) [Ratio] 15.9 % 11.6-14.6 [facility] Work Phone: Immature granulocytes/100 WBC (Bld) 1.500 % 0.0-0.9 [facility] Work Phone: [phone] Comment on above: IG% - Immature Granu locytes (promyelocytes, myelocytes and metamyelocytes) > 1% indicates that a LEFT SHIFT is Present. MCH (RBC) [Entitic mass] 26.2 pg 27.0-32.0 [facility] Work Phone: [phone] Nucleated RBC/100 WBC (Bld) [Ratio] 0 % 0-5 [facility] Work Phone: [phone] MCHC Auto (RBC) [Mass/Vol]on 10-26-2021 MCHC (RBC) [Mass/Vol] 30.6 g/dL 32-36 [facility] Work Phone: No Panel Informationon 10-26 Estimated Creatinine Clearance Calc 55.56 ml/min [facility] Work Phone: [phone] Estimated GFR (MDRD) Amer 71 mL/min >60 [facility] Work Phone: [phone] Comment on above: GFR Calc Estimated GFR (MDRD) Non-Af Amer 59 mL/min >60 [facility] Work Phone: [phone] Comment on above: Non- GFR Calc Platelets bldon 10-26-2021 Platelets (Bld) [#/Vol] 316 10*3/uL 150-450 [facility] Work Phone: [phone] Serum or plasma albumin yocasta urement (mass/volume)on 10-26-2021 Albumin [Mass/Vol] 2.7 g/dL 3.2-5.0 [facility] Work Phone: [phone] Serum or plasma albumin/glob ulin mass ratioon 10-26-2021 Albumin/Globulin [Mass ratio] 1.0 {ratio} 0.9-2.4 [facility] Work Phone: [phone] Serum or plasma calcium yocasta urement (mass/volume)on 10-26-2021 Calcium [Mass/Vol] 8.7 mg/dL 8.5-10.1 [facility] Work Phone: Serum or plasma creatinine m easurement (mass/volume)on 10-26-2021 Creatinine [Mass/Vol] 1.28 mg/dL 0.70-1.30 [facility] Work Phone: Comment on above: The validity of the calculated GFR & GFRAA in patients over 70 years has not been determined. Clinical correlation is essential. Serum or plasma urea nitroge n measurement (mass/volume)on 10-26-2021 Urea nitrogen [Mass/Vol] 26 mg/dL 7-18 [facility] Work Phone: Thin prep Papanicolaou smear with manual screeningon 10-26-2021 Thin prep Papanicolaou smear with manual screening 8 U/L 15-37 [facility] Work Phone: Thin prep Papanicolaou smear with manual screening 7 5-15 [facility] Work Phone: Direct bilirubinon Bilirubin.direct [Mass/Vol] 0.13 mg/dL 0.00-0.30 [facility] Work Phone: INR in Blood by Coagulation assayon 10-25-2021 INR Coag (Bld) [Relative time] 1.1 {INR} [facility] Work Phone: Laboratory - Coagulationon 0 10-25-2021 aPTT Coag (Bld) [Time] 32.7 s 24.1-36.2 [facility] Work Phone: PT Coag (PPP) [Time] 13.6 s 11.7-14.9 [facility] Work Phone: Whole blood hemoglobin A1c/t otal hemoglobin ratio (mass fraction)on 10-25-2021 HbA1c (Bld) [Mass fraction] 6.5 % 3.8-5.6 [facility] Work Phone: Comment on above: Normal < 5.7 % Predi abetic 5.7 - 6.4 % Diabetic >or= 6.5 % Please note range changes. Laboratory - Chemistry and C hemistry - challengeon 10-24-2021 Natriuretic peptide B (Bld) [Mass/Vol] 249.7 pg/mL 0-100 [facility] Work Phone: Basophil percentageon 2021 Lactate [Moles/Vol] 1.0 mmol/L 0.4-2.0 [facility] Work Phone: No Panel Informationon 10-23 Troponin I High Sensitivity 10 pg/mL 3.0-78.0 [facility] Work Phone: Comment on above: Please Note: New Nicole t Units and Gender Specific Reference Ranges. For more information see Policy Stat Procedure [place] High Sensitivity Troponin (TNIH) and attachments. Absolute lymphocyte counton 10-02-2021 Lymphocytes Auto (Unsp spec) [#/Vol] 1.26 10*3/uL 0.83-4.51 [facility] Work Phone: [phone] Basophil percentageon 2021 Basophils/100 WBC (Bld) 0.9 % 0-1 [facility] Work Phone: Bilirubin [Mass/Vol] 0.30 mg/dL 0.20-1.00 [facility] Work Phone: Comment on above: For patients on eltr ombopag therapy, use of Dimension [place] TBIL is not recommended. Chloride [Moles/Vol] 110 mmol/L 98-107 [facility] Work Phone: Eosinophils/100 WBC (Bld) 12.4 % 0-5 [facility] Work Phone: Glucose [Mass/Vol] 96 mg/dL 74-106 [facility] Work Phone: Neutrophils (Bld) [#/Vol] 4.4 10*3/uL 2.0-7.7 [facility] Work Phone: Neutrophils/100 WBC (Bld) 55.3 % 47-70 [facility] Work Phone: Potassium [Moles/Vol] 3.9 mmol/L 3.5-5.1 [facility] Work [facility]: Protein [Mass/Vol] 5.2 g/dL 6.4-8.2 [facility] Work Phone: [phone] Sodium [Moles/Vol] 141 mmol/L 136-145 [facility] Work Phone: [phone] WBC (Bld) [#/Vol] 8.0 10*3/uL 4.4-11.0 [facility] Work Phone: Blood erythrocytes count (nu mber/volume)on 10-02-2021 RBC (Bld) [#/Vol] 2.90 10*6/uL 4.6-6.2 [facility] Work Phone: [phone] Blood hemoglobin measurement (mass/volume)on 10-02-2021 Hemoglobin (Bld) [Mass/Vol] 8.0 g/dL 13.0-16.5 [facility] Work Phone: Blood lymphocytes/100 leukoc yteson 10-02-2021 Lymphocytes/100 WBC (Bld) 15.7 % 19-41 [facility] Work Phone: Blood monocytes/100 leukocyt eson 10-02-2021 Monocytes/100 WBC (Bld) 15.0 % 0-10 [facility] Work Phone: Blood platelet mean volumeon 10-02-2021 Platelet mean volume (Bld) [Entitic vol] 10.3 fL 6.2-12.0 [facility] Work Phone: [phone] Determination of erythrocyte mean corpuscular volume (MCV)on 10-02-2021 MCV (RBC) [Entitic vol] 89.3 fL 80-94 [facility] Work Phone: Glucose Glucometer (BldC) [M ass/Vol]on 10-02-2021 Glucose [Mass/Vol] 246 mg/dL 74-106 [facility] Work Phone: Comment on above: MANAGEMENT OF PATIEN T CARE PER NURSING PROTOCOL Hematocrit Auto (Bld) [Volum e fraction]on 10-02-2021 Hematocrit (Bld) [Volume fraction] 25.9 % 40-54 [facility] Work Phone: [phone] Laboratory - Chemistry and C hemistry - challengeon 10-02-2021 ALP [Catalytic activity/Vol] 71 U/L 45-117 [facility] Work Phone: [phone] ALT [Catalytic activity/Vol] 12 U/L 16-61 [facility] Work Phone: [phone] CO2 [Moles/Vol] 25.0 mmol/L 21.0-32.0 [facility] Work Phone: [phone] Globulin (S) [Mass/Vol] 3.0 g/dL 2.2-4.2 [facility] Work Phone: [phone] Urea nitrogen/Creatinine [Mass ratio] 22.2 mg/mg 10-20 [facility] Work Phone: [phone] Laboratory - Hematology and Cell countson 10-02-2021 Erythrocyte distribution width (RBC) [Entitic vol] 51.6 fL 35.1-43.9 [facility] Work Phone: [phone] Erythrocyte distribution width (RBC) [Ratio] 15.7 % 11.6-14.6 [facility] Work Phone: [phone] Immature granulocytes/100 WBC (Bld) 0.700 % 0.0-0.9 [facility] Work Phone: [phone] Comment on above: IG% - Immature Granu locytes (promyelocytes, myelocytes and metamyelocytes) > 1% indicates that a LEFT SHIFT is Present. MCH (RBC) [Entitic mass] 27.6 pg 27.0-32.0 [facility] Work Phone: [phone] Nucleated RBC/100 WBC (Bld) [Ratio] 0 % 0-5 [facility] Work Phone: [phone] MCHC Auto (RBC) [Mass/Vol]on 10-02-2021 MCHC (RBC) [Mass/Vol] 30.9 g/dL 32-36 [facility] Work Phone: [phone] Panel Informationon 10-02 Methicillin-Resist S.aureus DNA PCR Negative Negative [facility] Work Phone: Estimated Creatinine Clearance Calc 60.78 ml/min [facility] Work Phone: Estimated GFR (MDRD) Amer 79 mL/min >60 [facility] Work Phone: Comment on above: GFR Calc Estimated GFR (MDRD) Non-Af Amer 65 mL/min >60 [facility] Work Phone: Comment on above: Non- GFR Calc Platelets bldon 10-02-2021 Platelets (Bld) [#/Vol] 278 10*3/uL 150-450 [facility] Work Phone: Serum or plasma albumin yocasta urement (mass/volume)on 10-02-2021 Albumin [Mass/Vol] 2.2 g/dL 3.2-5.0 [facility] Work Phone: Serum or plasma albumin/glob ulin mass ratioon 10-02-2021 Albumin/Globulin [Mass ratio] 0.7 {ratio} 0.9-2.4 [facility] Work Phone: Serum or plasma calcium yocasta urement (mass/volume)on 10-02-2021 Calcium [Mass/Vol] 8.2 mg/dL 8.5-10.1 [facility] Work Phone: Serum or plasma creatinine m easurement (mass/volume)on 10-02-2021 Creatinine [Mass/Vol] 1.17 mg/dL 0.70-1.30 [facility] Work Phone: Comment on above: The validity of the calculated GFR & GFRAA in patients over 70 years has not been determined. Clinical correlation is essential. Serum or plasma urea nitroge n measurement (mass/volume)on 10-02-2021 Urea nitrogen [Mass/Vol] 26 mg/dL 7-18 [facility] Work Phone: Thin prep Papanicolaou smear with manual screeningon 10-02-2021 Thin prep Papanicolaou smear with manual screening 10 U/L 15-37 [facility] Work Phone: Thin prep Papanicolaou smear with manual screening 6 5-15 [facility] Work Phone: Whole blood hemoglobin A1c/t otal hemoglobin ratio (mass fraction)on 10-02-2021 HbA1c (Bld) [Mass fraction] 6.0 % 3.8-5.6 [facility] Work Phone: Comment on above: Normal < 5.7 % Predi abetic 5.7 - 6.4 % Diabetic >or= 6.5 % Please note range changes. Absolute lymphocyte counton 10-01-2021 Lymphocytes Auto (Unsp spec) [#/Vol] 1.71 10*3/uL 0.83-4.51 [facility] Work Phone: Basophil percentageon 2021 Basophils/100 WBC (Bld) 0.6 % 0-1 [facility] Work Phone: Chloride [Moles/Vol] 108 mmol/L 98-107 [facility] Work Phone: Eosinophils/100 WBC (Bld) 4.5 % 0-5 [facility] Work Phone: Glucose [Mass/Vol] 158 mg/dL 74-106 [facility] Work Phone: Comment on above: Fasting Glucose resu lt greater than or equal to 126 mg/dL suggests DIABETES MELLITUS per A.D.A. criteria. Lactate [Moles/Vol] 1.2 mmol/L 0.4-2.0 [facility] Work Phone: Neutrophils (Bld) [#/Vol] 9.8 10*3/uL 2.0-7.7 [facility] Work Phone: Neutrophils/100 WBC (Bld) 70.1 % 47-70 [facility] Work Phone: Potassium [Moles/Vol] 4.1 mmol/L 3.5-5.1 [facility] Work Phone: Sodium [Moles/Vol] 141 mmol/L 136-145 [facility] Work Phone: WBC (Bld) [#/Vol] 13.9 10*3/uL 4.4-11.0 [facility] Work Phone: Blood erythrocytes count (nu mber/volume)on 10-01-2021 RBC (Bld) [#/Vol] 3.29 10*6/uL 4.6-6.2 [facility] Work Phone: Blood hemoglobin measurement (mass/volume)on 10-01-2021 Hemoglobin (Bld) [Mass/Vol] 8.7 g/dL 13.0-16.5 [facility] Work Phone: Blood lymphocytes/100 leukoc yteson 10-01-2021 Lymphocytes/100 WBC (Bld) 12.3 % 19-41 [facility] Work Phone: Blood monocytes/100 leukocyt eson 10-01-2021 Monocytes/100 WBC (Bld) 11.6 % 0-10 [facility] Work Phone: Blood platelet adequacy dete ction by light microscopyon 10-01-2021 Platelets LM Ql (Bld) ADEQUATE ADEQ [facility] Work Phone: Blood platelet mean volumeon 10-01-2021 Platelet mean volume (Bld) [Entitic vol] 11.0 fL 6.2-12.0 [facility] Work Phone: Determination of erythrocyte mean corpuscular volume (MCV)on 10-01-2021 MCV (RBC) [Entitic vol] 87.2 fL 80-94 [facility] Work Phone: Hematocrit Auto (Bld) [Volum e fraction]on 10-01-2021 Hematocrit (Bld) [Volume fraction] 28.7 % 40-54 [facility] Work Phone: Laboratory - Chemistry and C hemistry - challengeon 10-01-2021 CO2 [Moles/Vol] 27.0 mmol/L 21.0-32.0 [facility] Work Phone: [phone] Natriuretic peptide B (Bld) [Mass/Vol] 244.9 pg/mL 0-100 [facility] Work Phone: [phone] Urea nitrogen/Creatinine [Mass ratio] 18.9 mg/mg 10-20 [facility] Work Phone: [phone] Laboratory - Hematology and Cell countson 10-01-2021 Erythrocyte distribution width (RBC) [Entitic vol] 49.9 fL 35.1-43.9 [facility] Work Phone: [phone] Erythrocyte distribution width (RBC) [Ratio] 15.5 % 11.6-14.6 [facility] Work Phone: [phone] Immature granulocytes/100 WBC (Bld) 0.900 % 0.0-0.9 [facility] Work Phone: [phone] Comment on above: IG% - Immature Granu locytes (promyelocytes, myelocytes and metamyelocytes) > 1% indicates that a LEFT SHIFT is Present. MCH (RBC) [Entitic mass] 26.4 pg 27.0-32.0 [facility] Work Phone: [phone] Nucleated RBC/100 WBC (Bld) [Ratio] 0 % 0-5 [facility] Work Phone: [phone] Laboratory - Microbiology an d Antimicrobial susceptibilityon 10-01-2021 SARS-CoV-2 (COVID-19) RNA JUSTIN+probe Ql (Unsp spec) Not detected Not Detect [facility] Work Phone: [phone] Comment on above: Normal Reference Ran ge: [...] 10-01-2021 MCHC (RBC) [Mass/Vol] 30.3 g/dL 32-36 [facility] Work Phone: No Panel Informationon 10-01 Estimated Creatinine Clearance Calc 48.05 ml/min [facility] Work Phone: [phone] Estimated GFR (MDRD) Amer 60 mL/min >60 [facility] Work Phone: [phone] Comment on above: GFR Calc Estimated GFR (MDRD) Non-Af Amer 50 mL/min >60 [facility] Work Phone: [phone] Comment on above: Non- GFR Calc Troponin I High Sensitivity 13 pg/mL 3.0-78.0 [facility] Work Phone: Comment on above: Please Note: New Nicole t Units and Gender Specific Reference Ranges. For more information see Policy Stat Procedure [place] High Sensitivity Troponin (TNIH) and attachments. Platelets bldon 10-01-2021 Platelets (Bld) [#/Vol] 441 10*3/uL 150-450 [facility] Work Phone: [phone] RBC morphologyon 10-01-2021 RBC morphology finding Nom (Bld) NORM C+C NORMAL NORM C&C [facility] Work Phone: Review by pathologiston Pathologist review Sohan (Unsp spec) [Interp] Josephine hair [facility] Work Phone: Pathologist review Sohan (Unsp spec) [Interp] Reviewed [facility] Work Phone: [phone] Comment on above: Previous reported re sult: Josephine hair Edited by: RGOCARLA on 10/02/21:1304Neutrophilic leukocytosis.Normocytic anemia.Clinical correlation necessary.Mc Urias M.D. 10/02/21 AMENDED REPORT 10/02/21 1304 PATH REV previously reported as: Josephine hair Serum or plasma calcium yocasta urement (mass/volume)on 10-01-2021 Calcium [Mass/Vol] 9.0 mg/dL 8.5-10.1 [facility] Work Phone: Serum or plasma creatinine m easurement (mass/volume)on 10-01-2021 Creatinine [Mass/Vol] 1.48 mg/dL 0.70-1.30 [facility] Work Phone: Comment on above: The validity of the calculated GFR & GFRAA in patients over 70 years has not been determined. Clinical correlation is essential. Serum or plasma urea nitroge n measurement (mass/volume)on 10-01-2021 Urea nitrogen [Mass/Vol] 28 mg/dL 7-18 [facility] Work Phone: Serum procalcitonin measurem enton 10-01-2021 Procalcitonin [Mass/Vol] 0.21 ng/mL 0.00-0.09 [facility] Work Phone: Comment on above: A [...] Papanicolaou smear with manual screening 6 5-15 [facility] Work Phone: Absolute lymphocyte counton 08-07-2021 Lymphocytes Auto (Unsp spec) [#/Vol] 1.59 10*3/uL 0.83-4.51 [facility] Work Phone: Basophil percentageon 2021 Basophils/100 WBC (Bld) 0.2 % 0-1 [facility] Work Phone: Chloride [Moles/Vol] 113 mmol/L 98-107 [facility] Work Phone: Eosinophils/100 WBC (Bld) 0.7 % 0-5 [facility] Work Phone: Glucose [Mass/Vol] 131 mg/dL 74-106 [facility] Work Phone: Comment on above: Fasting Glucose resu lt greater than or equal to 126 mg/dL suggests DIABETES MELLITUS per A.D.A. criteria. Neutrophils (Bld) [#/Vol] 5.5 10*3/uL 2.0-7.7 [facility] Work Phone: Neutrophils/100 WBC (Bld) 67.5 % 47-70 [facility] Work Phone: Potassium [Moles/Vol] 3.6 mmol/L 3.5-5.1 [facility] Work Phone: Sodium [Moles/Vol] 142 mmol/L 136-145 [facility] Work Phone: WBC (Bld) [#/Vol] 8.1 10*3/uL 4.4-11.0 [facility] Work Phone: Blood erythrocytes count (nu mber/volume)on 08-07-2021 RBC (Bld) [#/Vol] 2.63 10*6/uL 4.6-6.2 [facility] Work Phone: Blood hemoglobin measurement (mass/volume)on 08-07-2021 Hemoglobin (Bld) [Mass/Vol] 8.7 g/dL 13.0-16.5 [facility] Work Phone: Blood lymphocytes/100 leukoc yteson 08-07-2021 Lymphocytes/100 WBC (Bld) 19.6 % 19-41 [facility] Work Phone: Blood monocytes/100 leukocyt eson 08-07-2021 Monocytes/100 WBC (Bld) 11.6 % 0-10 [facility] Work Phone: [phone] Blood platelet mean volumeon 08-07-2021 Platelet mean volume (Bld) [Entitic vol] 10.1 fL 6.2-12.0 [facility] Work Phone: Determination of erythrocyte mean corpuscular volume (MCV)on 08-07-2021 MCV (RBC) [Entitic vol] 84.8 fL 80-94 [facility] Work Phone: Glucose Glucometer (BldC) [M ass/Vol]on 08-07-2021 Glucose [Mass/Vol] 146 mg/dL 74-106 [facility] Work Phone: Comment on above: MANAGEMENT OF PATIEN T CARE PER NURSING PROTOCOL Hematocrit Auto (Bld) [Volum e fraction]on 08-07-2021 Hematocrit (Bld) [Volume fraction] 27.3 % 40-54 [facility] Work Phone: Iron measurement (mass/mass) on 08-07-2021 Iron (Unsp spec) [Mass/Mass] 14 ug/dL 65-175 [facility] Work Phone: Laboratory - Chemistry and C hemistry - challengeon 08-07-2021 Cobalamin (Vitamin B12) [Mass/Vol] 1092 pg/mL 211-911 [facility] Work Phone: CO2 [Moles/Vol] 22.0 mmol/L 21.0-32.0 [facility] Work Phone: Urea nitrogen/Creatinine [Mass ratio] 29.4 mg/mg 10-20 [facility] Work Phone: [phone] Laboratory - Hematology and Cell countson 08-07-2021 Erythrocyte distribution width (RBC) [Entitic vol] 47.6 fL 35.1-43.9 [facility] Work Phone: [phone] Erythrocyte distribution width (RBC) [Ratio] 15.5 % 11.6-14.6 [facility] Work Phone: Immature granulocytes/100 WBC (Bld) 0.400 % 0.0-0.9 [facility] Work Phone: Comment on above: IG% - Immature Granu locytes (promyelocytes, myelocytes and metamyelocytes) > 1% indicates that a LEFT SHIFT is Present. MCH (RBC) [Entitic mass] 26.6 pg 27.0-32.0 [facility] Work Phone: Nucleated RBC/100 WBC (Bld) [Ratio] 0 % 0-5 [facility] Work Phone: MCHC Auto (RBC) [Mass/Vol]on 08-07-2021 MCHC (RBC) [Mass/Vol] 31.4 g/dL 32-36 [facility] Work Phone: No Panel Informationon 08-07 Total Iron Binding Capacity 133 ug/dL 250-450 [facility] Work Phone: Estimated Creatinine Clearance Calc 72.16 ml/min [facility] Work Phone: Estimated GFR (MDRD) Amer 126 mL/min >60 [facility] Work Phone: Comment on above: GFR Calc Estimated GFR (MDRD) Non-Af Amer 104 mL/min >60 [facility] Work Phone: Comment on above: Non- GFR Calc Platelets bldon 08-07-2021 Platelets (Bld) [#/Vol] 206 10*3/uL 150-450 [facility] Work Phone: Serum or plasma calcium yocasta urement (mass/volume)on 08-07-2021 Calcium [Mass/Vol] 5.4 mg/dL 8.5-10.1 [facility] Work Phone: Comment on above: Critical Result(s) C alled at: 06:53:34 08/07/2021 by: Van Foy. Edi Banegas RN (MS3). Results read back by same. Serum or plasma creatinine m easurement (mass/volume)on 08-07-2021 Creatinine [Mass/Vol] 0.78 mg/dL 0.70-1.30 [facility] Work Phone: [phone] Comment on above: The validity of the calculated GFR & GFRAA in patients over 70 years has not been determined. Clinical correlation is essential. Serum or plasma ferritin vasquez surement (mass/volume)on 08-07-2021 Ferritin [Mass/Vol] 301 ng/mL 26-388 [facility] Work Phone: [phone] Serum or plasma iron saturat ion measurement (mass fraction)on 08-07-2021 Iron saturation [Mass fraction] 10.5 % 15.0-55.0 [facility] Work Phone: [phone] Serum or plasma urea nitroge n measurement (mass/volume)on 08-07-2021 Urea nitrogen [Mass/Vol] 23 mg/dL 7-18 [facility] Work Phone: [phone] Thin prep Papanicolaou smear with manual screeningon 08-07-2021 Thin prep Papanicolaou smear with manual screening 7 5-15 [facility] Work Phone: [phone] Absolute lymphocyte counton 08-06-2021 Lymphocytes Auto (Unsp spec) [#/Vol] 2.34 10*3/uL 0.83-4.51 [facility] Work Phone: [phone] Basophil percentageon 2021 Basophil percentage >100 SEEN /hpf 0-5 [facility] Work Phone: [phone] Basophils/100 WBC (Bld) 0.4 % 0-1 [facility] Work Phone: [phone] Bilirubin [Mass/Vol] 0.50 mg/dL 0.20-1.00 [facility] Work Phone: [phone] Comment on above: For patients on eltr ombopag therapy, use of Dimension [place] TBIL is not recommended. Chloride [Moles/Vol] 109 mmol/L 98-107 [facility] Work Phone: [phone] Eosinophils/100 WBC (Bld) 4.9 % 0-5 [facility] Work Phone: Glucose [Mass/Vol] 104 mg/dL 74-106 [facility] Work Phone: Comment on above: Fasting Glucose resu lt from 100 to 125 mg/dL suggests IMPAIRED HOMEOSTASIS per A.D.A. criteria. Neutrophils (Bld) [#/Vol] 5.7 10*3/uL 2.0-7.7 [facility] Work Phone: Neutrophils/100 WBC (Bld) 60.6 % 47-70 [facility] Work [phone] Potassium [Moles/Vol] 3.6 mmol/L 3.5-5.1 [facility] Work Phone: Protein [Mass/Vol] 5.3 g/dL 6.4-8.2 [facility] Work Phone: Sodium [Moles/Vol] 141 mmol/L 136-145 [facility] Work Phone: WBC (Bld) [#/Vol] 9.4 10*3/uL 4.4-11.0 [facility] Work Phone: Bilirubin Test strip Ql (U)o n 08-06-2021 Bilirubin Ql (U) Negative Negative [facility] Work Phone: [phone] Blood erythrocytes count (nu mber/volume)on 08-06-2021 RBC (Bld) [#/Vol] 3.46 10*6/uL 4.6-6.2 [facility] Work Phone: Blood hemoglobin measurement (mass/volume)on 08-06-2021 Hemoglobin (Bld) [Mass/Vol] 9.4 g/dL 13.0-16.5 [facility] Work Phone: Blood lymphocytes/100 leukoc yteson 08-06-2021 Lymphocytes/100 WBC (Bld) 24.8 % 19-41 [facility] Work Phone: Blood monocytes/100 leukocyt eson 08-06-2021 Monocytes/100 WBC (Bld) 8.8 % 0-10 [facility] Work Phone: [phone] Blood platelet mean volumeon 08-06-2021 Platelet mean volume (Bld) [Entitic vol] 10.4 fL 6.2-12.0 [facility] Work Phone: [phone] Determination of erythrocyte mean corpuscular volume (MCV)on 08-06-2021 MCV (RBC) [Entitic vol] 85.0 fL 80-94 [facility] Work Phone: [phone] Direct bilirubinon Bilirubin.direct [Mass/Vol] 0.22 mg/dL 0.00-0.30 [facility] Work Phone: [phone] Glucose Glucometer (BldC) [M ass/Vol]on 08-06-2021 Glucose [Mass/Vol] 109 mg/dL 74-106 [facility] Work Phone: [phone] Comment on above: MANAGEMENT OF PATIEN T CARE PER NURSING PROTOCOL Hematocrit Auto (Bld) [Volum e fraction]on 08-06-2021 Hematocrit (Bld) [Volume fraction] 29.4 % 40-54 [facility] Work Phone: [phone] Ketones Test strip Ql (U)on 08-06-2021 Ketones Ql (U) Negative Negative [facility] Work Phone: Laboratory - Chemistry and C hemistry - challengeon 08-06-2021 ALP [Catalytic activity/Vol] 96 U/L 45-117 [facility] Work Phone: ALT [Catalytic activity/Vol] 14 U/L 16-61 [facility] Work Phone: [phone] CO2 [Moles/Vol] 25.0 mmol/L 21.0-32.0 [facility] Work Phone: [phone] Globulin (S) [Mass/Vol] 3.1 g/dL 2.2-4.2 [facility] Work Phone: [phone] Urea nitrogen/Creatinine [Mass ratio] 20.4 mg/mg 10-20 [facility] Work Phone: [phone] Laboratory - Hematology and Cell countson 08-06-2021 Erythrocyte distribution width (RBC) [Entitic vol] 48.0 fL 35.1-43.9 [facility] Work Phone: [phone] Erythrocyte distribution width (RBC) [Ratio] 15.5 % 11.6-14.6 [facility] Work Phone: [phone] Immature granulocytes/100 WBC (Bld) 0.500 % 0.0-0.9 [facility] Work Phone: [phone] Comment on above: IG% - Immature Granu locytes (promyelocytes, myelocytes and metamyelocytes) > 1% indicates that a LEFT SHIFT is Present. MCH (RBC) [Entitic mass] 27.2 pg 27.0-32.0 [facility] Work Phone: [phone] Nucleated RBC/100 WBC (Bld) [Ratio] 0 % 0-5 [facility] Work Phone: [phone] MCHC Auto (RBC) [Mass/Vol]on 08-06-2021 MCHC (RBC) [Mass/Vol] 32.0 g/dL 32-36 [facility] Work Phone: [phone] Mucus LM Ql (Urine sed)on Mucus Ql (Urine sed) 0 SEEN /hpf [facility] Work Phone: [phone] Nitrite Test strip Ql (U)on 08-06-2021 Nitrite Ql (U) Negative Negative [facility] Work Phone: [phone] Panel Informationon 08-06 Streptococcus pneumoniae Antigen (M [facility] Work Phone: [phone] Respiratory Panel (PCR) Rhinovirus [facility] Work Phone: [phone] Ionized Calcium 3.5 mg/dL 4.5-5.6 [facility] Work Phone: [phone] Comment on above: Performed at: [address] [id number] Director: Elder Sweet PhD, Phone: [phone] Estimated Creatinine Clearance Calc 66.82 ml/min [facility] Work Phone: [phone] Estimated GFR (MDRD) Amer 87 mL/min >60 [facility] Work Phone: Comment on above: GFR Calc Estimated GFR (MDRD) Non-Af Amer 72 mL/min >60 [facility] Work Phone: Comment on above: Non- GFR Calc Platelets bldon 08-06-2021 Platelets (Bld) [#/Vol] 332 10*3/uL 150-450 [facility] Work Phone: Protein Test strip Ql (U)on 08-06-2021 Protein Ql (U) 15 mg/dl Negative [facility] Work Phone: Serum or plasma albumin yocasta urement (mass/volume)on 08-06-2021 Albumin [Mass/Vol] 2.2 g/dL 3.2-5.0 [facility] Work Phone: Serum or plasma calcium yocasta urement (mass/volume)on 08-06-2021 Calcium [Mass/Vol] 6.1 mg/dL 8.5-10.1 [facility] Work Phone: Comment on above: Critical Result(s) C alled at: 13:19:46 08/06/2021 by: Sharyn Shay. Results read back by same. Serum or plasma creatinine m easurement (mass/volume)on 08-06-2021 Creatinine [Mass/Vol] 1.08 mg/dL 0.70-1.30 [facility] Work Phone: Comment on above: The validity of the calculated GFR & GFRAA in patients over 70 years has not been determined. Clinical correlation is essential. Serum or plasma urea nitroge n measurement (mass/volume)on 08-06-2021 Urea nitrogen [Mass/Vol] 22 mg/dL 7-18 [facility] Work Phone: Squamous epithelial cells de tection in urine sediment by light microscopyon 08-06-2021 Epithelial cells.squamous LM Ql (Urine sed) 0-5 SEEN /hpf 0-5 [facility] Work Phone: Thin prep Papanicolaou smear with manual screeningon 08-06-2021 Thin prep Papanicolaou smear with manual screening 17 U/L 15-37 [facility] Work Phone: Thin prep Papanicolaou smear with manual screening 7 5-15 [facility] Work Phone: Urine blood detectionon 07-25 RBC Ql (U) 25 /ul Negative [facility] Work Phone: RBC Ql (U) 5-10 SEEN /hpf 0-5 [facility] Work Phone: Urine clarityon 08-06-2021 Clarity (U) Sl. Cloudy Clear [facility] Work Phone: Urine color determinationon 08-06-2021 Color (U) Yellow Yellow [facility] Work Phone: Urine glucose detectionon Glucose Ql (U) Normal mg/dl Normal [facility] Work Phone: Urine leukocyte esterase det ection by dipstickon 08-06-2021 Leukocyte esterase Test strip Ql (U) 500 /ul Negative [facility] Work Phone: Urine pHon 08-06-2021 pH (U) 6.0 [pH] 5.0 - 8.0 [facility] Work Phone: Urine sediment bacteria coun t by microscopy (number/high power field)on 08-06-2021 Bacteria LM.HPF (Urine sed) [#/Area] 1 /[HPF] None Seen [facility] Work Phone: Urine sediment yeast count b y microscopy (number/high powered field)on 08-06-2021 Yeast LM.HPF (Urine sed) [#/Area] 4 /[HPF] None Seen [facility] Work Phone: Urine specific gravity measu rementon 08-06-2021 Specific gravity (U) [Rel density] 1.015 1.002-1.030 [facility] Work Phone: Urobilinogen Auto test strip Ql (U)on 08-06-2021 Urobilinogen Ql (U) Normal mg/dl Normal [facility] Work Phone: Absolute lymphocyte counton 08-01-2021 Lymphocytes Auto (Unsp spec) [#/Vol] 0.92 10*3/uL 0.83-4.51 [facility] Work Phone: Basophil percentageon 2021 Basophils/100 WBC (Bld) 0.3 % 0-1 [facility] Work Phone: Bilirubin [Mass/Vol] 0.60 mg/dL 0.20-1.00 [facility] Work Phone: Comment on above: For patients on eltr ombopag therapy, use of Dimension [place] TBIL is not recommended. Chloride [Moles/Vol] 106 mmol/L 98-107 [facility] Work Phone: Eosinophils/100 WBC (Bld) 4.0 % 0-5 [facility] Work Phone: [phone] Glucose [Mass/Vol] 146 mg/dL 74-106 [facility] Work Phone: Comment on above: Fasting Glucose resu lt greater than or equal to 126 mg/dL suggests DIABETES MELLITUS per A.D.A. criteria. Neutrophils (Bld) [#/Vol] 8.0 10*3/uL 2.0-7.7 [facility] Work Phone: Neutrophils/100 WBC (Bld) 77.1 % 47-70 [facility] Work Phone: [phone] Potassium [Moles/Vol] 3.5 mmol/L 3.5-5.1 [facility] Work Phone: Protein [Mass/Vol] 5.4 g/dL 6.4-8.2 [facility] Work Phone: Sodium [Moles/Vol] 141 mmol/L 136-145 [facility] Work Phone: [phone] Comment on above: Critical Result(s) C alled at: 16:03:59 08/01/2021 by: Michael Aldana. Results read back by same. WBC (Bld) [#/Vol] 10.4 10*3/uL 4.4-11.0 [facility] Work Phone: Blood erythrocytes count (nu mber/volume)on 08-01-2021 RBC (Bld) [#/Vol] 3.62 10*6/uL 4.6-6.2 [facility] Work Phone: Blood hemoglobin measurement (mass/volume)on 08-01-2021 Hemoglobin (Bld) [Mass/Vol] 9.8 g/dL 13.0-16.5 [facility] Work Phone: Blood lymphocytes/100 leukoc yteson 08-01-2021 Lymphocytes/100 WBC (Bld) 8.9 % 19-41 [facility] Work Phone: Blood monocytes/100 leukocyt eson 08-01-2021 Monocytes/100 WBC (Bld) 7.5 % 0-10 [facility] Work Phone: Blood platelet mean volumeon 08-01-2021 Platelet mean volume (Bld) [Entitic vol] 10.9 fL 6.2-12.0 [facility] Work Phone: Determination of erythrocyte mean corpuscular volume (MCV)on 08-01-2021 MCV (RBC) [Entitic vol] 85.4 fL 80-94 [facility] Work Phone: Hematocrit Auto (Bld) [Volum e fraction]on 08-01-2021 Hematocrit (Bld) [Volume fraction] 30.9 % 40-54 [facility] Work Phone: Laboratory - Chemistry and C hemistry - challengeon 08-01-2021 ALP [Catalytic activity/Vol] 92 U/L 45-117 [facility] Work Phone: ALT [Catalytic activity/Vol] 19 U/L 16-61 [facility] Work Phone: CO2 [Moles/Vol] 22.0 mmol/L 21.0-32.0 [facility] Work Phone: Globulin (S) [Mass/Vol] 2.9 g/dL 2.2-4.2 [facility] Work Phone: [phone] Urea nitrogen/Creatinine [Mass ratio] 20.6 mg/mg 10-20 [facility] Work Phone: [phone] Laboratory - Hematology and Cell countson 08-01-2021 Erythrocyte distribution width (RBC) [Entitic vol] 49.0 fL 35.1-43.9 [facility] Work Phone: [phone] Erythrocyte distribution width (RBC) [Ratio] 15.6 % 11.6-14.6 [facility] Work Phone: [phone] Immature granulocytes/100 WBC (Bld) 2.200 % 0.0-0.9 [facility] Work Phone: [phone] Comment on above: IG% - Immature Granu locytes (promyelocytes, myelocytes and metamyelocytes) > 1% indicates that a LEFT SHIFT is Present. MCH (RBC) [Entitic mass] 27.1 pg 27.0-32.0 [facility] Work Phone: [phone] Nucleated RBC/100 WBC (Bld) [Ratio] 0 % 0-5 [facility] Work Phone: [phone] MCHC Auto (RBC) [Mass/Vol]on 08-01-2021 MCHC (RBC) [Mass/Vol] 31.7 g/dL 32-36 [facility] Work Phone: [phone] No Panel Informationon 08-01 Estimated GFR (MDRD) Amer 87 mL/min >60 [facility] Work Phone: [phone] Comment on above: GFR Calc Estimated GFR (MDRD) Non-Af Amer 72 mL/min >60 [facility] Work Phone: [phone] Comment on above: Non- GFR Calc Platelets bldon 08-01-2021 Platelets (Bld) [#/Vol] 314 10*3/uL 150-450 [facility] Work Phone: [phone] Serum or plasma albumin yocasta urement (mass/volume)on 08-01-2021 Albumin [Mass/Vol] 2.5 g/dL 3.2-5.0 [facility] Work Phone: [phone] Serum or plasma albumin/glob ulin mass ratioon 08-01-2021 Albumin/Globulin [Mass ratio] 0.9 {ratio} 0.9-2.4 [facility] Work Phone: [phone] Serum or plasma calcium yocasta urement (mass/volume)on 08-01-2021 Calcium [Mass/Vol] 6.2 mg/dL 8.5-10.1 [facility] Work Phone: [phone] Serum or plasma creatinine m easurement (mass/volume)on 08-01-2021 Creatinine [Mass/Vol] 1.07 mg/dL 0.70-1.30 [facility] Work Phone: Comment on above: The validity of the calculated GFR & GFRAA in patients over 70 years has not been determined. Clinical correlation is essential. Serum or plasma urea nitroge n measurement (mass/volume)on 08-01-2021 Urea nitrogen [Mass/Vol] 22 mg/dL 7-18 [facility] Work Phone: Thin prep Papanicolaou smear with manual screeningon 08-01-2021 Thin prep Papanicolaou smear with manual screening 20 U/L 15-37 [facility] Work Phone: Thin prep Papanicolaou smear with manual screening 13 5-15 [facility] Work Phone: Basophil percentageon 2021 Basophil percentage 104 mg/dL 74-106 [facility] Work Phone: Basophil percentage 141 mmol/L 136-145 [facility] Work Phone: Basophil percentage 4.3 mmol/L 3.5-5.1 [facility] Work Phone: Basophil percentage 110 mmol/L 98-107 [facility] Work Phone: Basophils (Bld) [#/Vol] 6.6 10*3/uL 4.4-11.0 [facility] Work Phone: [phone] Chloride [Moles/Vol] 110 mmol/L 98-107 [facility]: [phone] Glucose [Mass/Vol] 104 mg/dL 74-106 [facility] Work Phone: [phone] Comment on above: Fasting Glucose resu lt from 100 to 125 mg/dL suggests IMPAIRED HOMEOSTASIS per A.D.A. criteria. Potassium [Moles/Vol] 4.3 mmol/L 3.5-5.1 [facility] Work Phone: [phone] Sodium [Moles/Vol] 141 mmol/L 136-145 [facility] Work Phone: [phone] WBC (Bld) [#/Vol] 6.6 10*3/uL 4.4-11.0 [facility] Work Phone: [phone] Blood erythrocytes count (nu mber/volume)on 06-15-2021 RBC (Bld) [#/Vol] 3.14 10*6/uL 4.6-6.2 [facility] Work Phone: [phone] Blood hemoglobin measurement (mass/volume)on 06-15-2021 Hemoglobin (Bld) [Mass/Vol] 8.5 g/dL 13.0-16.5 [facility] Work Phone: [phone] Blood platelet mean volumeon 06-15-2021 Platelet mean volume (Bld) [Entitic vol] 10.0 fL 6.2-12.0 [facility] Work Phone: [phone] Determination of erythrocyte mean corpuscular volume (MCV)on 06-15-2021 MCV (RBC) [Entitic vol] 86.0 fL 80-94 [facility] Work Phone: [phone] Hematocrit Auto (Bld) [Volum e fraction]on 06-15-2021 Hematocrit (Bld) [Volume fraction] 27.0 % 40-54 [facility] Work Phone: [phone] Laboratory - Chemistry and C hemistry - challengeon 06-15-2021 CO2 [Moles/Vol] 25.0 mmol/L 21.0-32.0 [facility] Work Phone: Urea nitrogen/Creatinine [Mass ratio] 20.2 mg/mg 10- [facility] Work Phone: [phone] Laboratory - Hematology and Cell countson 06-15-2021 Erythrocyte distribution width (RBC) [Entitic vol] 62.9 fL 35.1-43.9 [facility] Work Phone: [phone] Erythrocyte distribution width (RBC) [Ratio] 20.0 % 11.6-14.6 [facility] Work Phone: [phone] MCH (RBC) [Entitic mass] 27.1 pg 27.0-32.0 [facility] Work Phone: [phone] MCHC Auto (RBC) [Mass/Vol]on 06-15-2021 MCHC (RBC) [Mass/Vol] 31.5 g/dL 32-36 [facility] Work Phone: No Panel Informationon 06-15 Estimated GFR (MDRD) Amer 90 mL/min >60 [facility] Work Phone: Comment on above: GFR Calc Estimated GFR (MDRD) Non-Af Amer 75 mL/min >60 [facility] Work Phone: Comment on above: Non- GFR Calc 27.1 pg 27.0-32.0 [facility] Work Phone: 20.0 % 11.6-14.6 [facility] Work Phone: [phone] 62.9 fl 35.1-43.9 [facility] Work Phone: [phone] 75 mL/min >60 [facility] Work Phone: [phone] 90 mL/min >60 [facility] Work Phone: 20.2 RATIO 10- [facility] Work Phone: [phone] 25.0 mmol/L 21.0-32.0 [facility] Work Phone: Platelets bldon 06-15-2021 Platelets (Bld) [#/Vol] 357 10*3/uL 150-450 [facility] Work Phone: Serum or plasma calcium yocasta urement (mass/volume)on 06-15-2021 Calcium [Mass/Vol] 7.6 mg/dL 8.5-10.1 [facility] Work Phone: Serum or plasma creatinine m easurement (mass/volume)on 06-15-2021 Creatinine [Mass/Vol] 1.04 mg/dL 0.70-1.30 [facility] Work Phone: Comment on above: The validity of the calculated GFR & GFRAA in patients over 70 years has not been determined. Clinical correlation is essential. Serum or plasma urea nitroge n measurement (mass/volume)on 06-15-2021 Urea nitrogen [Mass/Vol] 21 mg/dL 7-18 [facility] Work Phone: Thin prep Papanicolaou smear with manual screeningon 06-15-2021 Thin prep Papanicolaou smear with manual screening 6 5-15 [facility] Work Phone: Glucose Glucometer (BldC) [M ass/Vol]on 05-18-2021 Glucose [Mass/Vol] 103 mg/dL 74-106 [facility] Work Phone: Comment on above: MANAGEMENT OF PATIEN T CARE PER NURSING PROTOCOL Absolute lymphocyte counton 05-12-2021 Lymphocytes Auto (Unsp spec) [#/Vol] 1.07 10*3/uL 0.83-4.51 [facility] Work Phone: Basophil percentageon 2021 Basophil percentage Not Reportable [facility] Work Phone: Basophil percentage 112 mg/dL 74-106 [facility] Work Phone: Basophil percentage 142 mmol/L 136-145 [facility] Work Phone: Basophil percentage 3.8 mmol/L 3.5-5.1 [facility] Work Phone: Basophil percentage 112 mmol/L 98-107 [facility] Work Phone: Basophils (Bld) [#/Vol] 6.7 10*3/uL 4.4-11.0 [facility] Work Phone: Basophils (Bld) [#/Vol] 4.2 10*3/uL 2.0-7.7 [facility] Work Phone: Chloride [Moles/Vol] 112 mmol/L 98-107 [facility] Work [facility]: Glucose [Mass/Vol] 112 mg/dL 74-106 [facility] Work Phone: Comment on above: Fasting Glucose resu lt from 100 to 125 mg/dL suggests IMPAIRED HOMEOSTASIS per A.D.A. criteria. Neutrophils (Bld) [#/Vol] 4.2 10*3/uL 2.0-7.7 [facility] Work Phone: Potassium [Moles/Vol] 3.8 mmol/L 3.5-5.1 [facility] Work Phone: Sodium [Moles/Vol] 142 mmol/L 136-145 [facility] Work Phone: WBC (Bld) [#/Vol] 6.7 10*3/uL 4.4-11.0 [facility] Work Phone: Blood band neutrophil count as percentage of total leukocyteson 05-12-2021 Band form neutrophils/100 WBC (Bld) 2 % 0-5 [facility] Work Phone: Blood eosinophils/100 leukoc yteson 05-12-2021 Eosinophils/100 WBC (Bld) 3 % 0-5 [facility] Work Phone: Blood erythrocytes count (nu mber/volume)on 05-12-2021 RBC (Bld) [#/Vol] 3.52 10*6/uL 4.6-6.2 [facility] Work Phone: Blood hemoglobin measurement (mass/volume)on 05-12-2021 Hemoglobin (Bld) [Mass/Vol] 9.5 g/dL 13.0-16.5 [facility] Work Phone: Blood lymphocytes/100 leukoc yteson 05-12-2021 Lymphocytes/100 WBC (Bld) 16 % 19-41 [facility] Work Phone: Blood metamyelocytes/100 dangelo kocyteson 05-12-2021 Metamyelocytes/100 WBC (Bld) 4 % 0-1 [facility] Work Phone: Blood monocytes/100 leukocyt eson 05-12-2021 Monocytes/100 WBC (Bld) 10 % 0-10 [facility] Work Phone: Blood platelet adequacy dete ction by light microscopyon 05-12-2021 Platelets LM Ql (Bld) ADEQUATE ADEQ [facility] Work Phone: Blood platelet mean volumeon 05-12-2021 Platelet mean volume (Bld) [Entitic vol] 10.2 fL 6.2-12.0 [facility] Work Phone: Blood segmented neutrophils/ 100 leukocyteson 05-12-2021 Segmented neutrophils/100 WBC (Bld) 61 % 47-70 [facility] Work Phone: Determination of erythrocyte mean corpuscular volume (MCV)on 05-12-2021 MCV (RBC) [Entitic vol] 83.0 fL 80-94 [facility] Work Phone: [phone] Hematocrit Auto (Bld) [Volum e fraction]on 05-12-2021 Hematocrit (Bld) [Volume fraction] 29.2 % 40-54 [facility] Work Phone: Laboratory - Chemistry and C hemistry - challengeon 05-12-2021 CO2 [Moles/Vol] 26.0 mmol/L 21.0-32.0 [facility] Work Phone: Urea nitrogen/Creatinine [Mass ratio] 13.8 mg/mg 10-20 [facility] Work Phone: Laboratory - Hematology and Cell countson 05-12-2021 Anisocytosis Ql (Bld) 1+ [facility] Work Phone: Erythrocyte distribution width (RBC) [Entitic vol] 52.5 fL 35.1-43.9 [facility] Work Phone: [phone] Erythrocyte distribution width (RBC) [Ratio] 17.8 % 11.6-14.6 [facility] Work Phone: [phone] MCH (RBC) [Entitic mass] 27.0 pg 27.0-32.0 [facility] Work Phone: [phone] Myelocytes/100 WBC (Bld) 4 % 0-0 [facility] Work Phone: [phone] MCHC Auto (RBC) [Mass/Vol]on 05-12-2021 MCHC (RBC) [Mass/Vol] 32.5 g/dL 32-36 [facility] Work Phone: [phone] No Panel Informationon 05-12 Estimated Creatinine Clearance Calc 67.91 ml/min [facility] Work Phone: [phone] Estimated GFR (MDRD) Amer 80 mL/min >60 [facility] Work Phone: [phone] Comment on above: GFR Calc Estimated GFR (MDRD) Non-Af Amer 66 mL/min >60 [facility] Work Phone: Comment on above: Non- GFR Calc 27.0 pg 27.0-32.0 [facility] Work Phone: [phone] 17.8 % 11.6-14.6 [facility] Work Phone: [phone] 52.5 fl 35.1-43.9 [facility] Work Phone: 4 % 0-0 [facility] Work Phone: 1+ [facility] Work Phone: 66 mL/min >60 [facility] Work Phone: 80 mL/min >60 [facility] Work Phone: 67.91 ml/min [facility] Work Phone: 13.8 RATIO 10-20 [facility] Work Phone: 26.0 mmol/L 21.0-32.0 [facility] Work Phone: Platelets bldon 05-12-2021 Platelets (Bld) [#/Vol] 443 10*3/uL 150-450 [facility] Work Phone: Review by pathologiston 04-24 Pathologist review Sohan (Unsp spec) [Interp] Reviewed [facility] Work Phone: Comment on above: Previous reported re sult: Josephine hair Edited by: RGOCARLA on 05/14/21:1437Normocytic anemia.Neutrophilic left shift.Clinical correlation necessary.Mc Urias M.D. 05/14/21 AMENDED REPORT 05/14/21 1437 PATH REV previously reported as: Josephine hair Serum or plasma calcium yocasta urement (mass/volume)on 05-12-2021 Calcium [Mass/Vol] 8.2 mg/dL 8.5-10.1 [facility] Work Phone: Serum or plasma creatinine m easurement (mass/volume)on 05-12-2021 Creatinine [Mass/Vol] 1.16 mg/dL 0.70-1.30 [facility] Work Phone: Comment on above: The validity of the calculated GFR & GFRAA in patients over 70 years has not been determined. Clinical correlation is essential. Serum or plasma urea nitroge n measurement (mass/volume)on 05-12-2021 Urea nitrogen [Mass/Vol] 16 mg/dL 7-18 [facility] Work Phone: Thin prep Papanicolaou smear with manual screeningon 05-12-2021 Thin prep Papanicolaou smear with manual screening 1+ [facility] Work Phone: Thin prep Papanicolaou smear with manual screening 4 5-15 [facility] Work Phone: Total cell counton 2 Cells counted Molgen (Bld/Tiss) [#] 100 MANUAL DIFF [facility] Work Phone: Basophil percentageon 2021 Basophils/100 WBC (Bld) 3.0 % 0-5 [facility] Work Phone: [phone] Basophils/100 WBC (Bld) 0.4 % 0-1 [facility] Work Phone: Eosinophils/100 WBC (Bld) 3.0 % 0-5 [facility] Work Phone: Blood lymphocytes/100 leukoc yteson 05-05-2021 Lymphocytes/100 WBC (Bld) 14.8 % 19-41 [facility] Work Phone: Blood monocytes/100 leukocyt eson 05-05-2021 Monocytes/100 WBC (Bld) 10.8 % 0-10 [facility] Work Phone: Laboratory - Hematology and Cell countson 05-05-2021 Immature granulocytes/100 WBC (Bld) 2.800 % 0.0-0.9 [facility] Work Phone: Comment on above: IG% - Immature Granu locytes (promyelocytes, myelocytes and metamyelocytes) > 1% indicates that a LEFT SHIFT is Present. Nucleated RBC/100 WBC (Bld) [Ratio] 0 % 0-5 [facility] Work Phone: No Panel Informationon 05-05 2.800 % 0.0-0.9 [facility] Work Phone: 0 % 0-5 [facility] Work Phone: Absolute lymphocyte counton 05-04-2021 Lymphocytes Auto (Unsp spec) [#/Vol] 0.59 10*3/uL 0.83-4.51 [facility] Work Phone: Basophil percentageon 2021 Basophils (Bld) [#/Vol] 4.9 10*3/uL 4.4-11.0 [facility] Work Phone: Basophils (Bld) [#/Vol] 3.6 10*3/uL 2.0-7.7 [facility] Work Phone: Basophils/100 WBC (Bld) 72.2 % 47-70 [facility] Work Phone: Basophils/100 WBC (Bld) 3.6 % 0-5 [facility] Work Phone: Basophils/100 WBC (Bld) 0.4 % 0-1 [facility] Work Phone: Eosinophils/100 WBC (Bld) 3.6 % 0-5 [facility] Work Phone: Neutrophils (Bld) [#/Vol] 3.6 10*3/uL 2.0-7.7 [facility] Work Phone: Neutrophils/100 WBC (Bld) 72.2 % 47-70 [facility] Work Phone: WBC (Bld) [#/Vol] 4.9 10*3/uL 4.4-11.0 [facility] Work Phone: Blood erythrocytes count (nu mber/volume)on 05-04-2021 RBC (Bld) [#/Vol] 3.13 10*6/uL 4.6-6.2 [facility] Work Phone: Blood hemoglobin measurement (mass/volume)on 05-04-2021 Hemoglobin (Bld) [Mass/Vol] 8.3 g/dL 13.0-16.5 [facility] Work Phone: Blood lymphocytes/100 leukoc yteson 05-04-2021 Lymphocytes/100 WBC (Bld) 11.9 % 19-41 [facility] Work Phone: Blood manual differential co mment interpretation (narrative result)on 05-04-2021 Manual differential comment Sohan (Bld) [Interp] SCANNED [facility] Work Phone: Blood monocytes/100 leukocyt eson 05-04-2021 Monocytes/100 WBC (Bld) 9.9 % 0-10 [facility] Work Phone: Blood platelet mean volumeon 05-04-2021 Platelet mean volume (Bld) [Entitic vol] 10.0 fL 6.2-12.0 [facility] Work Phone: [phone] Determination of erythrocyte mean corpuscular volume (MCV)on 05-04-2021 MCV (RBC) [Entitic vol] 83.4 fL 80-94 [facility] Work Phone: [phone] Glucose Glucometer (BldC) [M ass/Vol]on 05-04-2021 Glucose [Mass/Vol] 126 mg/dL 74-106 [facility] Work Phone: [phone] Comment on above: MANAGEMENT OF PATIEN T CARE PER NURSING PROTOCOL Gram stain for investigation of transfusion reactionon 05-04-2021 Microscopic observation Gram stain Nom (Unsp spec) [facility] Work Phone: [phone] Hematocrit Auto (Bld) [Volum e fraction]on 05-04-2021 Hematocrit (Bld) [Volume fraction] 26.1 % 40-54 [facility] Work Phone: [phone] Laboratory - Hematology and Cell countson 05-04-2021 Erythrocyte distribution width (RBC) [Entitic vol] 53.6 fL 35.1-43.9 [facility] Work Phone: [phone] Erythrocyte distribution width (RBC) [Ratio] 17.7 % 11.6-14.6 [facility] Work Phone: [phone] Immature granulocytes/100 WBC (Bld) 2.000 % 0.0-0.9 [facility] Work Phone: [phone] Comment on above: IG% - Immature Granu locytes (promyelocytes, myelocytes and metamyelocytes) > 1% indicates that a LEFT SHIFT is Present. MCH (RBC) [Entitic mass] 26.5 pg 27.0-32.0 [facility] Work Phone: [phone] Nucleated RBC/100 WBC (Bld) [Ratio] 0 % 0-5 [facility] Work Phone: [phone] MCHC Auto (RBC) [Mass/Vol]on 05-04-2021 MCHC (RBC) [Mass/Vol] 31.8 g/dL 32-36 [facility] Work Phone: No Panel Informationon 05-04 26.5 pg 27.0-32.0 [facility] Work Phone: [phone] 17.7 % 11.6-14.6 [facility] Work Phone: [phone] 53.6 fl 35.1-43.9 [facility] Work Phone: [phone] 2.000 % 0.0-0.9 [facility] Work Phone: [phone] 0 % 0-5 [facility] Work Phone: [phone] Platelets bldon 05-04-2021 Platelets (Bld) [#/Vol] 389 10*3/uL 150-450 [facility] Work Phone: [phone] Basophil percentageon 2021 Basophil percentage 45 mg/dL 74-106 [facility] Work Phone: [phone] Basophil percentage 4.6 g/dL 6.4-8.2 [facility] Work Phone: [phone] Basophil percentage 0.30 mg/dL 0.20-1.00 [facility] Work Phone: [phone] Basophil percentage 147 mmol/L 136-145 [facility] Work Phone: [phone] Basophil percentage 3.2 mmol/L 3.5-5.1 [facility] Work Phone: [phone] Basophil percentage 118 mmol/L 98-107 [facility] Work Phone: [phone] Bilirubin [Mass/Vol] 0.30 mg/dL 0.20-1.00 [facility] Work Phone: [phone] Comment on above: For patients on eltr ombopag therapy, use of Dimension [place] TBIL is not recommended. Chloride [Moles/Vol] 118 mmol/L 98-107 [facility] Work Phone: Glucose [Mass/Vol] 45 mg/dL 74-106 [facility] Work Phone: [phone] Comment on above: Glucose result less than 50 mg/dL suggests HYPOGLYCEMIA. Potassium [Moles/Vol] 3.2 mmol/L 3.5-5.1 [facility] Work Phone: Protein [Mass/Vol] 4.6 g/dL 6.4-8.2 [facility] Work Phone: Sodium [Moles/Vol] 147 mmol/L 136-145 [facility] Work Phone: Laboratory - Chemistry and C hemistry - challengeon 05-03-2021 ALP [Catalytic activity/Vol] 55 U/L 45-117 [facility] Work Phone: ALT [Catalytic activity/Vol] 23 U/L 16-61 [facility] Work Phone: CO2 [Moles/Vol] 23.0 mmol/L 21.0-32.0 [facility] Work Phone: Globulin (S) [Mass/Vol] 3.3 g/dL 2.2-4.2 [facility] Work Phone: Urea nitrogen/Creatinine [Mass ratio] 12.6 mg/mg 12-13 [facility] Work Phone: No Panel Informationon 05-03 Estimated Creatinine Clearance Calc 51.82 ml/min [facility] Work Phone: Estimated GFR (MDRD) Amer 67 mL/min >60 [facility] Work Phone: Comment on above: GFR Calc Estimated GFR (MDRD) Non-Af Amer 55 mL/min >60 [facility] Work Phone: Comment on above: Non- GFR Calc 55 mL/min >60 [facility] Work Phone: 67 mL/min >60 [facility] Work Phone: 51.82 ml/min [facility] Work Phone: 12.6 RATIO - [facility] Work Phone: 3.3 g/dL 2.2-4.2 [facility] Work Phone: 55 U/L 45-117 [facility] Work Phone: [phone] U/L 16-61 [facility] Work Phone: [phone] 23.0 mmol/L 21.0-32.0 [facility] Work Phone: [phone] Serum or plasma albumin yocasta urement (mass/volume)on 05-03-2021 Albumin [Mass/Vol] 1.3 g/dL 3.2-5.0 [facility] Work Phone: [phone] Serum or plasma albumin/glob ulin mass ratioon 05-03-2021 Albumin/Globulin [Mass ratio] 0.4 {ratio} 0.9-2.4 [facility] Work Phone: [phone] Serum or plasma calcium yocasta urement (mass/volume)on 05-03-2021 Calcium [Mass/Vol] 7.1 mg/dL 8.5-10.1 [facility] Work Phone: [phone] Serum or plasma creatinine m easurement (mass/volume)on 05-03-2021 Creatinine [Mass/Vol] 1.35 mg/dL 0.70-1.30 [facility] Work Phone: [phone] Comment on above: The validity of the calculated GFR & GFRAA in patients over 70 years has not been determined. Clinical correlation is essential. Serum or plasma urea nitroge n measurement (mass/volume)on 05-03-2021 Urea nitrogen [Mass/Vol] 17 mg/dL 7-18 [facility] Work Phone: [phone] Thin prep Papanicolaou smear with manual screeningon 05-03-2021 Thin prep Papanicolaou smear with manual screening 32 U/L 15-37 [facility] Work Phone: [phone] Thin prep Papanicolaou smear with manual screening 6 5-15 [facility] Work Phone: Basophil percentageon 2021 Basophil percentage 1.1 mmol/L 0.4-2.0 [facility] Work Phone: [phone] Lactate [Moles/Vol] 1.1 mmol/L 0.4-2.0 [facility] Work Phone: Blood santi cells detection b y light microscopyon 05-01-2021 Santi cells LM Ql (Bld) RARE [facility] Work Phone: Hemoglobin in reticulocytes (mass per reticulocyte)on 05-01-2021 Hemoglobin (Reticulocytes) [Entitic mass] 25.1 pg 30-35 [facility] Work Phone: Iron measurement (mass/mass) on 05-01-2021 Iron (Unsp spec) [Mass/Mass] 15 ug/dL 65-175 [facility] Work Phone: Laboratory - Chemistry and C hemistry - challengeon 05-01-2021 Cobalamin (Vitamin B12) [Mass/Vol] 1806 pg/mL 211-911 [facility] Work Phone: [phone] Laboratory - Coagulationon 0 05-01-2021 aPTT Coag (Bld) [Time] 72.5 s 24.1-36.2 [facility] Work Phone: Laboratory - Hematology and Cell countson 05-01-2021 Anisocytosis Ql (Bld) 1+ [facility] Work Phone: Laboratory - Microbiology an d Antimicrobial susceptibilityon 05-01-2021 Bacteria identified Cx Nom (Bld) No growth in 5 days. [facility] Work Phone: Lower GI hemoglobin IA Ql (S tl)on 05-01-2021 Stool Occult Blood (FOREST) Positive [facility] Work Phone: Stool gastrointestinal hemoglobin detection by immunologic method Positive [facility] Work Phone: No Panel Informationon 05-01 72.5 Seconds 24.1-36.2 [facility] Work Phone: No growth in 5 days. [facility] Work Phone: 1806 pg/mL 211-911 [facility] Work Phone: Streptococcus pneumoniae Antigen (M [facility] Work Phone: Immature Reticulocyte Fraction 33.10 % 3.00-15.90 [facility] Work Phone: Reticulocyte Count 1.72 % 0.5-1.5 [facility] Work Phone: Total Iron Binding Capacity 152 ug/dL 250-450 [facility] Work Phone: 1+ [facility] Work Phone: [phone] 1.72 % 0.5-1.5 [facility] Work Phone: 33.10 % 3.00-15.90 [facility] Work Phone: 152 ug/dL 250-450 [facility] Work Phone: Serum or plasma ferritin vasquez surement (mass/volume)on 05-01-2021 Ferritin [Mass/Vol] 544 ng/mL 26-388 [facility] Work Phone: Serum or plasma iron saturat ion measurement (mass fraction)on 05-01-2021 Iron saturation [Mass fraction] 9.9 % 15.0-55.0 [facility] Work Phone: INR in Blood by Coagulation assayon 04-30-2021 INR Coag (Bld) [Relative time] 2.7 {INR} [facility] Work Phone: Laboratory - Coagulationon 0 04-30-2021 PT Coag (PPP) [Time] 27.9 s 11.7-14.9 [facility] Work Phone: No Panel Informationon 04-30 Methicillin-Resist S.aureus DNA PCR Negative Negative [facility] Work Phone: Negative Negative [facility] Work Phone: 27.9 SECONDS 11.7-14.9 [facility] Work Phone: Vancomycin troughon 05-01-19 Vancomycin trough [Mass/Vol] 10.5 ug/mL 5.0-15.0 [facility] Work Phone: Comment on above: VANCOMYCIN STANDARED DRUG THERAPY TROUGH LEVEL: 5.0 - 15.0 mg/L VANCOMYCIN HIGH INTENSITY THERAPY TROUGH LEVEL: 15.0 - 20.0 mg/L High Intensity therapy recommended for serious lifethreatening infections include:- [id number]-[id number] (Ventilator/Healtcare Associated)-Sepsis PLEASE CONTACT PHARMACY SERVICES (#[id number]) FOR INTERPRETATIONOF RESULTS. Glucose Glucometer (BldC) [M ass/Vol]on 04-29-2021 Glucose [Mass/Vol] 103 mg/dL 74-106 [facility] Work Phone: Comment on above: MANAGEMENT OF PATIEN T CARE PER NURSING PROTOCOL Laboratory - Chemistry and C hemistry - challengeon 04-29-2021 Natriuretic peptide B (Bld) [Mass/Vol] 65.0 pg/mL 0-100 [facility] Work Phone: No Panel Informationon 04-29 Troponin I High Sensitivity 24 pg/mL 3.0-78.0 [facility] Work Phone: [phone] Comment on above: Please Note: New Nicole t Units and Gender Specific Reference Ranges. For more information see Policy Stat Procedure [place] High Sensitivity Troponin (TNIH) and attachments. 24 pg/mL 3.0-78.0 [facility] Work Phone: [phone] 65.0 pg/mL 0-100 [facility] Work Phone: Absolute lymphocyte counton 04-28-2021 Lymphocytes Auto (Unsp spec) [#/Vol] 0.59 10*3/uL 0.83-4.51 [facility] Work Phone: Basophil percentageon 2021 Basophil percentage 86 mg/dL 74-106 [facility] Work Phone: Basophil percentage 141 mmol/L 136-145 [facility] Work Phone: Basophil percentage 3.6 mmol/L 3.5-5.1 [facility] Work Phone: Basophil percentage 110 mmol/L 98-107 [facility] Work Phone: [phone] Basophils (Bld) [#/Vol] 4.6 10*3/uL 4.4-11.0 [facility] Work Phone: Basophils (Bld) [#/Vol] 3.6 10*3/uL 2.0-7.7 [facility] Work Phone: Basophils/100 WBC (Bld) 77.1 % 47-70 [facility] Work Phone: Basophils/100 WBC (Bld) 1.7 % 0-5 [facility] Work Phone: Basophils/100 WBC (Bld) 0.2 % 0-1 [facility] Work Phone: Chloride [Moles/Vol] 110 mmol/L 98-107 [facility] Work Phone: Eosinophils/100 WBC (Bld) 1.7 % 0-5 [facility] Work Phone: Glucose [Mass/Vol] 86 mg/dL 74-106 [facility] Work Phone: Neutrophils (Bld) [#/Vol] 3.6 10*3/uL 2.0-7.7 [facility] Work Phone: Neutrophils/100 WBC (Bld) 77.1 % 47-70 [facility] Work Phone: Potassium [Moles/Vol] 3.6 mmol/L 3.5-5.1 [facility] Work Phone: Sodium [Moles/Vol] 141 mmol/L 136-145 [facility] Work Phone: WBC (Bld) [#/Vol] 4.6 10*3/uL 4.4-11.0 [facility] Work Phone: Blood erythrocytes count (nu mber/volume)on 04-28-2021 RBC (Bld) [#/Vol] 3.73 10*6/uL 4.6-6.2 [facility]: Blood hemoglobin measurement (mass/volume)on 03-05-2022 Hemoglobin (Bld) [Mass/Vol] 9.7 g/dL 13.0-16.5 [facility] Work Phone: Blood lymphocytes/100 leukoc yteson 04-28-2021 Lymphocytes/100 WBC (Bld) 12.8 % 19-41 [facility] Work Phone: Blood monocytes/100 leukocyt eson 04-28-2021 Monocytes/100 WBC (Bld) 7.6 % 0-10 [facility] Work Phone: Blood platelet mean volumeon 04-28-2021 Platelet mean volume (Bld) [Entitic vol] 10.5 fL 6.2-12.0 [facility] Work Phone: Determination of erythrocyte mean corpuscular volume (MCV)on 04-28-2021 MCV (RBC) [Entitic vol] 82.6 fL 80-94 [facility] Work Phone: Hematocrit Auto (Bld) [Volum e fraction]on 04-28-2021 Hematocrit (Bld) [Volume fraction] 30.8 % 40-54 [facility] Work Phone: Laboratory - Chemistry and C hemistry - challengeon 04-28-2021 CO2 [Moles/Vol] 24.0 mmol/L 21.0-32.0 [facility] Work Phone: Urea nitrogen/Creatinine [Mass ratio] 18.7 mg/mg 10-20 [facility] Work Phone: Laboratory - Hematology and Cell countson 04-28-2021 [facility]is[facility] (Bld[facility]: Erythrocyte distribution width (RBC) [Entitic vol] 50.5 fL 35.1-43.9 [facility] Work Phone: Erythrocyte distribution width (RBC) [Ratio] 17.1 % 11.6-14.6 [facility] Work Phone: Immature granulocytes/100 WBC (Bld) 0.600 % 0.0-0.9 [facility] Work Phone: Comment on above: IG% - Immature Granu locytes (promyelocytes, myelocytes and metamyelocytes) > 1% indicates that a LEFT SHIFT is Present. MCH (RBC) [Entitic mass] 26.0 pg 27.0-32.0 [facility] Work Phone: Nucleated RBC/100 WBC (Bld) [Ratio] 0 % 0-5 [facility] Work Phone: Laboratory - Microbiology an d Antimicrobial susceptibilityon 04-28-2021 Bacteria identified Cx Nom (Bld) No growth in 5 days. [facility] Work Phone: MCHC Auto (RBC) [Mass/Vol]on 04-28-2021 MCHC (RBC) [Mass/Vol] 31.5 g/dL 32-36 [facility] Work Phone: No Panel Informationon 04-28 Acanthocytes RARE [facility] Work Phone: Estimated Creatinine Clearance Calc 45.13 ml/min [facility] Work Phone: [phone] Estimated GFR (MDRD) Amer 57 mL/min >60 [facility] Work Phone: Comment on above: GFR Calc Estimated GFR (MDRD) Non-Af Amer 47 mL/min >60 [facility] Work Phone: Comment on above: Non- GFR Calc 26.0 pg 27.0-32.0 [facility] Work Phone: 17.1 % 11.6-14.6 [facility] Work Phone: 50.5 fl 35.1-43.9 [facility] Work Phone: 0.600 % 0.0-0.9 [facility] Work Phone: 0 % 0-5 [facility] Work Phone: 1+ [facility] Work Phone: RARE [facility] Work Phone: 47 mL/min >60 [facility] Work Phone: 57 mL/min >60 [facility] Work Phone: [phone] 45.13 ml/min [facility] Work Phone: [phone] 18.7 RATIO 10-20 [facility] Work Phone: 24.0 mmol/L 21.0-32.0 [facility] Work Phone: [phone] No growth in [address] [facility] Work Phone: [phone] Ovalocyte detectionon 2021 Ovalocytes LM Ql (Bld) RARE [facility] Work Phone: [phone] Platelets bldon 04-28-2021 Platelets (Bld) [#/Vol] 247 10*3/uL 150-450 [facility] Work Phone: [phone] Serum or plasma calcium yocasta urement (mass/volume)on 04-28-2021 Calcium [Mass/Vol] 8.9 mg/dL 8.5-10.1 [facility] Work Phone: Serum or plasma creatinine m easurement (mass/volume)on 04-28-2021 Creatinine [Mass/Vol] 1.55 mg/dL 0.70-1.30 [facility] Work Phone: [phone] Comment on above: The validity of the calculated GFR & GFRAA in patients over 70 years has not been determined. Clinical correlation is essential. Serum or plasma urea nitroge n measurement (mass/volume)on 04-28-2021 Urea nitrogen [Mass/Vol] 29 mg/dL 7-18 [facility] Work Phone: Thin prep Papanicolaou smear with manual screeningon 04-28-2021 Thin prep Papanicolaou smear with manual screening 7 5-15 [facility] Work Phone: Absolute lymphocyte counton 04-26-2021 Lymphocytes Auto (Unsp spec) [#/Vol] 0.62 10*3/uL 0.83-4.51 [facility] Work Phone: Amorphous sediment detection in urine sediment by light microscopyon 04-26-2021 Amorphous sediment LM Ql (Urine sed) 1+ [facility] Work Phone: Basophil percentageon 2021 Basophil percentage 92 mg/dL 74-106 [facility] Work Phone: Basophil percentage 2.5 mg/dL 2.5-4.9 [facility] Work Phone: Basophil percentage 138 mmol/L 136-145 [facility] Work Phone: Basophil percentage 3.4 mmol/L 3.5-5.1 [facility] Work Phone: Basophil percentage 108 mmol/L 98-107 [facility] Work Phone: Basophils (Bld) [#/Vol] 5.2 10*3/uL 4.4-11.0 [facility] Work Phone: Basophils (Bld) [#/Vol] 4.0 10*3/uL 2.0-7.7 [facility] Work Phone: Basophils/100 WBC (Bld) 77.3 % 47-70 [facility] Work Phone: Basophils/100 WBC (Bld) 1.3 % 0-5 [facility] Work Phone: Basophils/100 WBC (Bld) 0.2 % 0-1 [facility] Work Phone: Chloride [Moles/Vol] 108 mmol/L 98-107 [facility]: Eosinophils/100 WBC (Bld) 1.3 % 0-5 [facility] Work Phone: Glucose [Mass/Vol] 92 mg/dL 74-106 [facility] Work Phone: Neutrophils (Bld) [#/Vol] 4.0 10*3/uL 2.0-7.7 [facility] Work Phone: Neutrophils/100 WBC (Bld) 77.3 % 47-70 [facility] Work Phone: Potassium [Moles/Vol] 3.4 mmol/L 3.5-5.[address] [address] [facility] Work Phone: Sodium [Moles/Vol] 138 mmol/L 136-145 [facility] Work Phone: WBC (Bld) [#/Vol] 5.2 10*3/uL 4.4-11.0 [facility] Work Phone: Basophil percentage 0-5 SEEN /hpf [facility] Work Phone: Bilirubin Test strip Ql (U)o n 04-26-2021 Bilirubin Ql (U) Negative Negative [facility] Work Phone: Blood erythrocytes count (nu mber/volume)on 04-26-2021 RBC (Bld) [#/Vol] 3.82 10*6/uL 4.6-6.2 [facility] [place] Work Phone: Blood hemoglobin measurement (mass/volume)on 04-26-2021 Hemoglobin (Bld) [Mass/Vol] 9.5 g/dL 13.0-16.5 [facility] Work Phone: Blood lymphocytes/100 leukoc yteson 04-26-2021 Lymphocytes/100 WBC (Bld) 11.9 % 19-41 [facility] Work Phone: Blood monocytes/100 leukocyt eson 04-26-2021 Monocytes/100 WBC (Bld) 8.5 % 0-10 [facility] Work Phone: Blood platelet mean volumeon 04-26-2021 Platelet mean volume (Bld) [Entitic vol] 10.2 fL 6.2-12.0 [facility] Work Phone: Determination of erythrocyte mean corpuscular volume (MCV)on 04-26-2021 MCV (RBC) [Entitic vol] 80.9 fL 80-94 [facility] Work Phone: Glucose Glucometer (BldC) [M ass/Vol]on 04-26-2021 Glucose [Mass/Vol] 238 mg/dL 74-106 [facility] Work Phone: Comment on above: MANAGEMENT OF PATIEN T CARE PER NURSING PROTOCOL Hematocrit Auto (Bld) [Volum e fraction]on 04-26-2021 Hematocrit (Bld) [Volume fraction] 30.9 % 40-54 [facility] Work Phone: Ketones Test strip Ql (U)on 04-26-2021 Ketones Ql (U) Negative Negative [facility] Work Phone: Laboratory - Chemistry and C hemistry - challengeon 04-26-2021 CO2 [Moles/Vol] 26.0 mmol/L 21.0-32.0 [facility] Work Phone: [phone] Magnesium [Mass/Vol] 1.6 mg/dL 1.6-2.6 [facility] Work Phone: [phone] Urea nitrogen/Creatinine [Mass ratio] 16.3 mg/mg 10-20 [facility] Work Phone: Laboratory - Hematology and Cell countson 04-26-2021 Erythrocyte distribution width (RBC) [Entitic vol] 48.0 fL 35.1-43.9 [facility] Work Phone: Erythrocyte distribution width (RBC) [Ratio] 16.5 % 11.6-14.6 [facility] Work Phone: Immature granulocytes/100 WBC (Bld) 0.800 % 0.0-0.9 [facility] Work Phone: Comment on above: IG% - Immature Granu locytes (promyelocytes, myelocytes and metamyelocytes) > 1% indicates that a LEFT SHIFT is Present. MCH (RBC) [Entitic mass] 24.9 pg 27.0-32.0 [facility] Work Phone: Nucleated RBC/100 WBC (Bld) [Ratio] 0 % 0-5 [facility] Work Phone: MCHC Auto (RBC) [Mass/Vol]on 04-26-2021 MCHC (RBC) [Mass/Vol] 30.7 g/dL 32-36 [facility] Work Phone: Comment on above: Delta: 32.4 on 04/25-0550 Mucus LM Ql (Urine sed)on Mucus Ql (Urine sed) 0 SEEN /hpf [facility] Work Phone: Nitrite Test strip Ql (U)on 04-26-2021 Nitrite Ql (U) Negative Negative [facility] Work Phone: [phone] No Panel Informationon 04-26 Estimated Creatinine Clearance Calc 51.82 ml/min [facility] Work Phone: Estimated GFR (MDRD) Amer 67 mL/min >60 [facility] Work Phone: [phone] Comment on above: GFR Calc Estimated GFR (MDRD) Non-Af Amer 55 mL/min >60 [facility] Work Phone: [phone] Comment on above: Non- GFR Calc 24.9 pg 27.0-32.0 [facility] Work Phone: 16.5 % 11.6-14.6 [facility] Work Phone: 48.0 fl 35.1-43.9 [facility] Work Phone: 0.800 % 0.0-0.9 [facility] Work Phone: 0 % 0-5 [facility] Work Phone: 55 mL/min >60 [facility] Work Phone: [phone] 67 mL/min >60 [facility] Work Phone: [phone] 51.82 ml/min [facility] Work Phone: 16.3 RATIO 10-20 [facility] Work Phone: 1.6 mg/dL 1.6-2.6 [facility] Work Phone: 26.0 mmol/L 21.0-32.0 [facility] Work Phone: Platelets bldon 04-26-2021 Platelets (Bld) [#/Vol] 190 10*3/uL 150-450 [facility] Work Phone: Protein Test strip Ql (U)on 04-26-2021 Protein Ql (U) 30 mg/dl Negative [facility] Work Phone: Serum or plasma calcium yocasta urement (mass/volume)on 04-26-2021 Calcium [Mass/Vol] 7.8 mg/dL 8.5-10.1 [facility] Work Phone: Serum or plasma creatinine m easurement (mass/volume)on 04-26-2021 Creatinine [Mass/Vol] 1.35 mg/dL 0.70-1.30 [facility] Work Phone: Comment on above: The validity of the calculated GFR & GFRAA in patients over 70 years has not been determined. Clinical correlation is essential. Serum or plasma urea nitroge n measurement (mass/volume)on 04-26-2021 Urea nitrogen [Mass/Vol] 22 mg/dL 7-18 [facility] Work Phone: Squamous epithelial cells de tection in urine sediment by light microscopyon 04-26-2021 Epithelial cells.squamous LM Ql (Urine sed) 0 SEEN /hpf [facility] Work Phone: Thin prep Papanicolaou smear with manual screeningon 04-26-2021 Thin prep Papanicolaou smear with manual screening 4 5-15 [facility] Work Phone: Urine blood detectionon - RBC Ql (U) 25 /ul Negative [facility] Work Phone: [phone] RBC Ql (U) 0-5 SEEN /hpf [facility] Work Phone: Urine clarityon 04-26-2021 Clarity (U) Clear Clear [facility] Work Phone: Urine color determinationon 04-26-2021 Color (U) Yellow Yellow [facility] Work Phone: Urine glucose detectionon Glucose Ql (U) Normal mg/dl Normal [facility] Work Phone: [phone] Urine leukocyte esterase det ection by dipstickon 04-26-2021 Leukocyte esterase Test strip Ql (U) Negative Negative [facility] Work Phone: [phone] Urine pHon 04-26-2021 pH (U) 6.0 [pH] [facility] Work Phone: Urine sediment bacteria coun t by microscopy (number/high power field)on 04-26-2021 Bacteria LM.HPF (Urine sed) [#/Area] 2 /[HPF] None Seen [facility] Work Phone: Urine sediment yeast count b y microscopy (number/high powered field)on 04-26-2021 Yeast LM.HPF (Urine sed) [#/Area] 2 /[HPF] None Seen [facility] Work Phone: [phone] Urine specific gravity measu rementon 04-26-2021 Specific gravity (U) [Rel density] 1.010 [facility] Work Phone: [phone] Urobilinogen Auto test strip Ql (U)on 04-26-2021 Urobilinogen Ql (U) Normal mg/dl Normal [facility] Work Phone: Blood manual differential co mment interpretation (narrative result)on 04-25-2021 Manual differential comment Sohan (Bld) [Interp] SCANNED [facility] Work Phone: Comment on above: LYMPHOPENIA NOTED Serum or plasma vancomycin m easurement (mass/volume)on 04-25-2021 Vancomycin [Mass/Vol] 17.8 ug/mL 0.0-15.0 [facility] Work Phone: Comment on above: VANCOMYCIN STANDARD DRUG THERAPY: CRITICAL VALUE IS > 15.0 mg/L VANCOMYCIN HIGH INTENSITY THERAPY: CRITICAL VALUE IS > 20.0 mg/L PLEASE CONTACT PHARMACY SERVICES (#[id number]) FOR INTERPRETATIONOF RESULTS. THIS RESULT DOES NOT REPRESENT A PEAK OR TROUGHLEVEL FOR THIS DRUG. Vancomycin troughon 04-23-19 Vancomycin trough [Mass/Vol] 21.6 ug/mL 5.0-15.0 [facility] Work Phone: Comment on above: VANCOMYCIN STANDARED DRUG THERAPY TROUGH LEVEL: 5.0 - 15.0 mg/L VANCOMYCIN HIGH INTENSITY THERAPY TROUGH LEVEL: 15.0 - 20.0 mg/L High Intensity therapy recommended for serious lifethreatening infections include:- Tkkrxqichh-Mqoozykjqaan-Faqxoxvog (Ventilator/Healtcare Associated)-Sepsis PLEASE CONTACT PHARMACY SERVICES (#[id number]) FOR INTERPRETATIONOF RESULTS. Basophil percentageon 2021 Basophil percentage 5.1 g/dL 6.4-8.2 [facility] Work Phone: [phone] Basophil percentage 0.70 mg/dL 0.20-1.00 [facility] Work Phone: [phone] Bilirubin [Mass/Vol] 0.70 mg/dL 0.20-1.00 [facility] Work Phone: [phone] Comment on above: For patients on eltr ombopag therapy, use of Dimension [place] TBIL is not recommended. Protein [Mass/Vol] 5.1 g/dL 6.4-8.2 [facility] Work Phone: [phone] Laboratory - Chemistry and C hemistry - challengeon 04-22-2021 Natriuretic peptide B (Bld) [Mass/Vol] 80.0 pg/mL 0-100 [facility] Work Phone: [phone] ALP [Catalytic activity/Vol] 63 U/L 45-117 [facility] Work Phone: [phone] ALT [Catalytic activity/Vol] 22 U/L 16-61 [facility] Work Phone: [phone] Globulin (S) [Mass/Vol] 3.1 g/dL 2.2-4.2 [facility] Work Phone: [phone] Laboratory - Microbiology an d Antimicrobial susceptibilityon 04-22-2021 Bacteria identified Cx Nom (Bld) No growth in 5 days. [facility] Work Phone: [phone] No Panel Informationon 04-22 Troponin I High Sensitivity 20 pg/mL 3.0-78.0 [facility] Work Phone: [phone] Comment on above: Please Note: New Nicole t Units and Gender Specific Reference Ranges. For more information see Policy Stat Procedure [place] High Sensitivity Troponin (TNIH) and attachments. 20 pg/mL 3.0-78.0 [facility] Work Phone: [phone] 80.0 pg/mL 0-100 [facility] Work Phone: [phone] [facility] [phone] 3.1 g/dL 2.2-4.2 [facility] Work Phone: U/L 45-117 [facility] Work Phone: [phone] 22 U/L 16-61 [facility] Work Phone: [phone] Serum or plasma albumin yocasta urement (mass/volume)on 04-22-2021 Albumin [Mass/Vol] 2.0 g/dL 3.2-5.0 [facility] Work Phone: [phone] Serum or plasma albumin/glob ulin mass ratioon 04-22-2021 Albumin/Globulin [Mass ratio] 0.6 {ratio} 0.9-2.4 [facility] Work Phone: Serum procalcitonin measurem enton 04-22-2021 Procalcitonin [Mass/Vol] 0.13 ng/mL 0.00-0.09 [facility] Work Phone: Comment on above: A [...] smear with manual screening 15 U/L 15-37 [facility] Work Phone: Bacteria identified Cx Nom ( U)on 04-21-2021 Culture, urine Yeast, not Elisha albicans [facility] Work Phone: [phone] Culture, urine Positive [facility] Work Phone: [phone] Blood platelet adequacy dete ction by light microscopyon 04-21-2021 Platelets LM Ql (Bld) ADEQUATE ADEQ [facility] Work Phone: [phone] Culture, urineon 04-21-2021 Bacteria identified Cx Nom (U) Yeast, not Elisha albicans [facility] Work Phone: [phone] Bacteria identified Cx Nom (U) Positive [facility] Work Phone: [phone] RBC morphologyon 04-21-2021 RBC morphology finding Nom (Bld) NORM C+C NORMAL NORM C&C [facility] Work Phone: [phone] Absolute lymphocyte counton 04-11-2021 Lymphocytes Auto (Unsp spec) [#/Vol] 0.50 10*3/uL 0.83-4.51 [facility] Work Phone: Basophil percentageon 2021 Basophil percentage 171 mg/dL 74-106 [facility] Work Phone: [phone] Basophil percentage 5.8 g/dL 6.4-8.2 [facility] Work Phone: [phone] Basophil percentage 0.30 mg/dL 0.20-1.00 [facility] Work Phone: Basophil percentage 135 mmol/L 136-145 [facility] Work Phone: Basophil percentage 3.8 mmol/L 3.5-5.1 [facility] Work Phone: Basophil percentage 103 mmol/L 98-107 [facility] Work Phone: Basophils (Bld) [#/Vol] 6.9 10*3/uL 4.4-11.0 [facility] Work Phone: Basophils (Bld) [#/Vol] 5.7 10*3/uL 2.0-7.7 [facility] Work Phone: Basophils/100 WBC (Bld) 83.4 % 47-70 [facility] Work Phone: Basophils/100 WBC (Bld) 0.1 % 0-5 [facility] Work Phone: Basophils/100 WBC (Bld) 0.3 % 0-1 [facility] Work Phone: Bilirubin [Mass/Vol] 0.30 mg/dL 0.20-1.00 [facility] Work Phone: Comment on above: For patients on eltr ombopag therapy, use of Dimension [place] TBIL is not recommended. Chloride [Moles/Vol] 103 mmol/L 98-107 [facility] Work Phone: Eosinophils/100 WBC (Bld) 0.1 % 0-5 [facility] Work Phone: Glucose [Mass/Vol] 171 mg/dL 74-106 [facility] Work Phone: Comment on above: Fasting Glucose resu lt greater than or equal to 126 mg/dL suggests DIABETES MELLITUS per A.D.A. criteria. Neutrophils (Bld) [#/Vol] 5.7 10*3/uL 2.0-7.7 [facility] Work Phone: Neutrophils/100 WBC (Bld) 83.4 % 47-70 [facility] Work Phone: Potassium [Moles/Vol] 3.8 mmol/L 3.5-5.1 [facility] Work Phone: Protein [Mass/Vol] 5.8 g/dL 6.4-8.2 [facility] Work Phone: Sodium [Moles/Vol] 135 mmol/L 136-145 [facility] Work Phone: WBC (Bld) [#/Vol] 6.9 10*3/uL 4.4-11.0 [facility] Work Phone: Blood erythrocytes count (nu mber/volume)on 04-11-2021 RBC (Bld) [#/Vol] 3.99 10*6/uL 4.6-6.2 [facility] Work Phone: Blood hemoglobin measurement (mass/volume)on 04-11-2021 Hemoglobin (Bld) [Mass/Vol] 10.2 g/dL 13.0-16.5 [facility] Work Phone: Blood lymphocytes/100 leukoc yteson 04-11-2021 Lymphocytes/100 WBC (Bld) 7.3 % 19-41 [facility] Work Phone: Blood manual differential co mment interpretation (narrative result)on 04-11-2021 Manual differential comment Sohan (Bld) [Interp] SCANNED [facility] Work Phone: Comment on above: LYMPHOPENIA NOTED Blood monocytes/100 leukocyt eson 04-11-2021 Monocytes/100 WBC (Bld) 7.7 % 0-10 [facility] Work Phone: Blood platelet mean volumeon 04-11-2021 Platelet mean volume (Bld) [Entitic vol] 11.3 fL 6.2-12.0 [facility] Work Phone: Determination of erythrocyte mean corpuscular volume (MCV)on 04-11-2021 MCV (RBC) [Entitic vol] 75.9 fL 80-94 [facility] Work Phone: Glucose Glucometer (BldC) [M ass/Vol]on 04-11-2021 Glucose [Mass/Vol] 162 mg/dL 70-110 [facility] Work Phone: Comment on above: MANAGEMENT OF PATIEN T CARE PER NURSING PROTOCOL Hematocrit Auto (Bld) [Volum e fraction]on 04-11-2021 Hematocrit (Bld) [Volume fraction] 30.3 % 40-54 [facility] Work Phone: Laboratory - Chemistry and C hemistry - challengeon 04-11-2021 ALP [Catalytic activity/Vol] 62 U/L 45-117 [facility] Work Phone: [phone] ALT [Catalytic activity/Vol] 29 U/L 16-61 [facility] Work Phone: [phone] CO2 [Moles/Vol] 24.0 mmol/L 21.0-32.0 [facility] Work Phone: [phone] Globulin (S) [Mass/Vol] 3.5 g/dL 2.2-4.2 [facility] Work Phone: [phone] Magnesium [Mass/Vol] 1.8 mg/dL 1.6-2.6 [facility] Work Phone: [phone] Urea nitrogen/Creatinine [Mass ratio] 33.3 mg/mg 10-20 [facility] Work Phone: [phone] Laboratory - Hematology and Cell countson 04-11-2021 Erythrocyte distribution width (RBC) [Entitic vol] 43.0 fL 35.1-43.9 [facility] Work Phone: [phone] Erythrocyte distribution width (RBC) [Ratio] 15.9 % 11.6-14.6 [facility] Work Phone: [phone] Immature granulocytes/100 WBC (Bld) 1.200 % 0.0-0.9 [facility] Work Phone: [phone] Comment on above: IG% - Immature Granu locytes (promyelocytes, myelocytes and metamyelocytes) > 1% indicates that a LEFT SHIFT is Present. MCH (RBC) [Entitic mass] 25.6 pg 27.0-32.0 [facility] Work Phone: [phone] Nucleated RBC/100 WBC (Bld) [Ratio] 0 % 0-5 [facility] Work Phone: [phone] MCHC Auto (RBC) [Mass/Vol]on 04-11-2021 MCHC (RBC) [Mass/Vol] 33.7 g/dL 32-36 [facility] Work Phone: No Panel Informationon 04-11 Estimated Creatinine Clearance Calc 86.37 ml/min [facility] Work Phone: Estimated GFR (MDRD) Amer 121 mL/min >60 [facility] Work Phone: Comment on above: GFR Calc Estimated GFR (MDRD) Non-Af Amer 100 mL/min >60 [facility] Work Phone: Comment on above: Non- GFR Calc 25.6 pg 27.0-32.0 [facility] Work Phone: 15.9 % 11.6-14.6 [facility] Work Phone: 43.0 fl 35.1-43.9 [facility] Work Phone: 1.200 % 0.0-0.9 [facility] Work Phone: 0 % 0-5 [facility] Work Phone: 100 mL/min >60 [facility] Work Phone: 121 mL/min >60 [facility] Work Phone: 86.37 ml/min [facility] Work Phone: 33.3 RATIO 10-20 [facility] Work Phone: 3.5 g/dL 2.2-4.2 [facility] Work Phone: 62 U/L 45-117 [facility] Work Phone: 29 U/L 16-61 [facility] Work Phone: 1.8 mg/dL 1.6-2.6 [facility] Work Phone: 24.0 mmol/L 21.0-32.0 [facility] Work Phone: Platelets bldon 04-11-2021 Platelets (Bld) [#/Vol] 295 10*3/uL 150-450 [facility] Work Phone: Serum or plasma albumin yocasta urement (mass/volume)on 04-11-2021 Albumin [Mass/Vol] 2.3 g/dL 3.2-5.0 [facility] Work Phone: Serum or plasma albumin/glob ulin mass ratioon 04-11-2021 Albumin/Globulin [Mass ratio] 0.7 {ratio} 0.9-2.4 [facility] Work Phone: Serum or plasma calcium yocasta urement (mass/volume)on 04-11-2021 Calcium [Mass/Vol] 8.2 mg/dL 8.5-10.1 [facility] Work Phone: Serum or plasma creatinine m easurement (mass/volume)on 04-11-2021 Creatinine [Mass/Vol] 0.81 mg/dL 0.70-1.30 [facility] Work Phone: Comment on above: The validity of the calculated GFR & GFRAA in patients over 70 years has not been determined. Clinical correlation is essential. Serum or plasma urea nitroge n measurement (mass/volume)on 04-11-2021 Urea nitrogen [Mass/Vol] 27 mg/dL 7-18 [facility] Work Phone: Thin prep Papanicolaou smear with manual screeningon 04-11-2021 Thin prep Papanicolaou smear with manual screening 14 U/L 15-37 [facility] Work Phone: Thin prep Papanicolaou smear with manual screening 8 5-15 [facility] Work Phone: Review by pathologiston 03-27 Pathologist review Sohan (Unsp spec) [Interp] Reviewed [facility] Work Phone: Comment on above: Previous reported re sult: Josephine hair Edited by: ROSETTA on 04/11/21:940LymphopeniaMicrocytic anemia.Clinical correlation suggested.Andrea Porter D.O. 04/11/21 AMENDED REPORT 04/11/21 0941 PATH REV previously reported as: Josephine hair Bronchoalveolar lavage cultu re with Gram stainon 04-09-2021 Respiratory microbial culture or Staphylococcus aureus isolated. [facility] Work Phone: Gram stain for investigation of transfusion reactionon 04-09-2021 Microscopic observation Gram stain Nom (Unsp spec) [facility] Work Phone: Assessment of wrist artery p atency prior to arterial punctureon 04-08-2021 Arterial patency Wrist artery --pre arterial puncture Positive [facility] Work Phone: Base excesson 04-08-2021 Base excess Calc (BldV) [Moles/Vol] 0 mmol/L -2-2 [facility] Work Phone: Basophil percentageon 2021 Basophil percentage 2.2 mmol/L 0.4-2.0 [facility] Work Phone: Lactate [Moles/Vol] 2.2 mmol/L 0.4-2.0 [facility] Work Phone: Basophil percentage 23.5 mmol/L 22-26 [facility] Work Phone: Basophils/100 WBC (Bld) 90 % 95-99 [facility] Work Phone: Basophil percentage 0 SEEN /hpf [facility] Work Phone: Bilirubin Test strip Ql (U)o n 04-08-2021 Bilirubin Ql (U) Negative Negative [facility] Work Phone: CO2 (BldA) [Partial pressure ]on 04-08-2021 CO2 (Bld) [Partial pressure] 32.0 mm[Hg] 35-45 [facility] Work Phone: Ketones Test strip Ql (U)on 04-08-2021 Ketones Ql (U) Negative Negative [facility] Work Phone: Laboratory - Microbiology an d Antimicrobial susceptibilityon 04-08-2021 Bacteria identified Cx Nom (Bld) No growth in 5 days. [facility] Work Phone: Mucus LM Ql (Urine sed)on Mucus Ql (Urine sed) 0 SEEN /hpf [facility] Work Phone: Nitrite Test strip Ql (U)on 04-08-2021 Nitrite Ql (U) Negative Negative [facility] Work Phone: [phone] No Panel Informationon 04-08 Blood Gas Liter Flow 5.0 /min [facility] Work Phone: [phone] Blood Gas Sample Site L Radial [facility] Work Phone: [phone] Blood Gas Specimen Type ART [facility] Work Phone: [phone] Blood Gas Total CO2 25 mmol/L [facility] Work Phone: [phone] Oxygen Delivery Device Cannula [facility] Work Phone: ART [facility] Work Phone: [phone] L Radial [facility] Work Phone: [phone] Cannula [facility] Work Phone: [phone] 5.0 /min [facility] Work Phone: [phone] 25 mmol/L [facility] Work Phone: [phone] D-Dimer Quantitative (PE/DVT) 6.86 FEU/ug/m 0.27-0.49 [facility] Work Phone: Comment on above: D-Dimer ELEVATED (>0 .49): Additional studies and clinicalassessments are indicated to conclude diagnosis of:Deep Vein Thrombosis (DVT) or Pulmonary Embolism (PE)CRITICAL VALUE VERIFIED. CALLED TO TARAH HARRIS04/08/21 141[employer].RESULTS READ BACK BY SAME . Troponin I High Sensitivity 16 pg/mL 3.0-78.0 [facility] Work Phone: Comment on above: Please Note: New Nicole t Units and Gender Specific Reference Ranges. For more information see Policy Stat Procedure [place] High Sensitivity Troponin (TNIH) and attachments. 6.86 FEU/ug/m 0.27-0.49 [facility] Work Phone: 16 pg/mL 3.0-78.0 [facility] Work Phone: [phone] No growth in 5 days. [facility] Work Phone: Oxygen (BldA) [Partial press ure]on 04-08-2021 Oxygen (Bld) [Partial pressure] 55 mmHG 75-100 [facility] Work Phone: Protein Test strip Ql (U)on 04-08-2021 Protein Ql (U) 30 mg/dl Negative [facility] Work Phone: Squamous epithelial cells de tection in urine sediment by light microscopyon 04-08-2021 Epithelial cells.squamous LM Ql (Urine sed) 0-5 SEEN /hpf [facility] Work Phone: Urine blood detectionon 03-27 RBC Ql (U) 10 /ul Negative [facility] Work Phone: RBC Ql (U) 0-5 SEEN /hpf [facility] Work Phone: Urine clarityon 04-08-2021 Clarity (U) Clear Clear [facility] Work Phone: Urine color determinationon 04-08-2021 Color (U) Yellow Yellow [facility] Work Phone: Urine glucose detectionon Glucose Ql (U) 250 mg/dl Normal [facility] Work Phone: Urine leukocyte esterase det ection by dipstickon 04-08-2021 Leukocyte esterase Test strip Ql (U) Negative Negative [facility] Work Phone: Urine pHon 04-08-2021 pH (U) 6.0 [pH] [facility] Work Phone: Urine sediment bacteria coun t by microscopy (number/high power field)on 04-08-2021 Bacteria LM.HPF (Urine sed) [#/Area] RARE /hpf None Seen [facility] Work Phone: Urine specific gravity measu rementon 04-08-2021 Specific gravity (U) [Rel density] 1.015 [facility] Work Phone: Urobilinogen Auto test strip Ql (U)on 04-08-2021 Urobilinogen Ql (U) Normal mg/dl Normal [facility] Work Phone: pH measurementon 04-08-2021 pH (Unsp spec) 7.47 [pH] 7.35-7.45 [facility] Work Phone: Absolute lymphocyte counton 04-05-2021 Lymphocytes Auto (Unsp spec) [#/Vol] 1.16 10*3/uL 0.83-4.51 [facility] Work Phone: Basophil percentageon 2021 Basophil percentage 418 mg/dL 74-106 [facility] Work Phone: Basophil percentage 6.5 g/dL 6.4-8.2 [facility] Work Phone: Basophil percentage 0.60 mg/dL 0.20-1.00 [facility] Work Phone: Basophil percentage 135 mmol/L 136-145 [facility] Work Phone: Basophil percentage 3.8 mmol/L 3.5-5.1 [facility] Work Phone: Basophil percentage 104 mmol/L 98-107 [facility] Work Phone: Basophils (Bld) [#/Vol] 3.7 10*3/uL 4.4-11.0 [facility] Work Phone: Basophils (Bld) [#/Vol] 2.2 10*3/uL 2.0-7.7 [facility] Work Phone: Basophils/100 WBC (Bld) 60.8 % 47-70 [facility] Work Phone: Basophils/100 WBC (Bld) 0.0 % 0-1 [facility] Work Phone: Blood erythrocytes count (nu mber/volume)on 04-05-2021 RBC (Bld) [#/Vol] 3.96 10*6/uL 4.6-6.2 [facility] Work Phone: Blood hemoglobin measurement (mass/volume)on 04-05-2021 Hemoglobin (Bld) [Mass/Vol] 10.3 g/dL 13.0-16.5 [facility] Work Phone: Blood lymphocytes/100 leukoc yteson 04-05-2021 Lymphocytes/100 WBC (Bld) 31.4 % 19-41 [facility] Work Phone: Blood monocytes/100 leukocyt eson 04-05-2021 Monocytes/100 WBC (Bld) 7.3 % 0-10 [facility] Work Phone: Blood platelet mean volumeon 04-05-2021 Platelet mean volume (Bld) [Entitic vol] 11.4 fL 6.2-12.0 [facility] Work Phone: Determination of erythrocyte mean corpuscular volume (MCV)on 04-05-2021 MCV (RBC) [Entitic vol] 82.3 fL 80-94 [facility] Work Phone: Hematocrit Auto (Bld) [Volum e fraction]on 04-05-2021 Hematocrit (Bld) [Volume fraction] 32.6 % 40-54 [facility] Work Phone: MCHC Auto (RBC) [Mass/Vol]on 04-05-2021 MCHC (RBC) [Mass/Vol] 31.6 g/dL 32-36 [facility] Work Phone: No Panel Informationon 04-05 26.0 pg 27.0-32.0 [facility] Work Phone: 15.7 % 11.6-14.6 [facility] Work Phone: 47.4 fl 35.1-43.9 [facility] Work Phone: 0.500 % 0.0-0.9 [facility] Work Phone: 0 % 0-5 [facility] Work Phone: 61 mL/min >60 [facility] Work Phone: [phone] 74 mL/min >60 [facility] Work Phone: 32.3 RATIO 10-20 [facility] Work Phone: [phone] 3.9 g/dL 2.2-4.2 [facility] Work Phone: [phone] 69 U/L 45-117 [facility] Work Phone: [phone] 36 U/L 16-61 [facility] Work Phone: [phone] 21.0 mmol/L 21.0-32.0 [facility] Work Phone: [phone] Platelets bldon 04-05-2021 Platelets (Bld) [#/Vol] 195 10*3/uL 150-450 [facility] Work Phone: [phone] Serum or plasma albumin yocasta urement (mass/volume)on 04-05-2021 Albumin [Mass/Vol] 2.6 g/dL 3.2-5.0 [facility] Work Phone: [phone] Serum or plasma albumin/glob ulin mass ratioon 04-05-2021 Albumin/Globulin [Mass ratio] 0.7 {ratio} 0.9-2.4 [facility] Work Phone: [phone] Serum or plasma calcium yocasta urement (mass/volume)on 04-05-2021 Calcium [Mass/Vol] 8.8 mg/dL 8.5-10.1 [facility] Work Phone: [phone] Serum or plasma creatinine m easurement (mass/volume)on 04-05-2021 Creatinine [Mass/Vol] 1.24 mg/dL 0.70-1.30 [facility] Work Phone: [phone] Serum or plasma urea nitroge n measurement (mass/volume)on 04-05-2021 Urea nitrogen [Mass/Vol] 40 mg/dL 7-18 [facility] Work Phone: [phone] Thin prep Papanicolaou smear with manual screeningon 04-05-2021 Thin prep Papanicolaou smear with manual screening 26 U/L 15-37 [facility] Work Phone: [phone] Thin prep Papanicolaou smear with manual screening 10 5-15 [facility] Work Phone: Absolute lymphocyte counton 03-25-2021 Lymphocytes Auto (Unsp spec) [#/Vol] 0.90 10*3/uL 0.83-4.51 [facility] Work Phone: Basophil percentageon 2021 Basophil percentage 252 mg/dL 74-106 [facility] Work Phone: Basophil percentage 5.5 g/dL 6.4-8.2 [facility] Work Phone: Basophil percentage 0.30 mg/dL 0.20-1.00 [facility] Work Phone: Basophil percentage 136 mmol/L 136-145 [facility] Work Phone: Basophil percentage 4.3 mmol/L 3.5-5.1 [facility] Work Phone: Basophil percentage 105 mmol/L 98-107 [facility] Work Phone: Basophils (Bld) [#/Vol] 15.1 10*3/uL 4.4-11.0 [facility] Work Phone: Basophils (Bld) [#/Vol] 12.4 10*3/uL 2.0-7.7 [facility] Work Phone: Basophils/100 WBC (Bld) 82.3 % 47-70 [facility] Work Phone: Basophils/100 WBC (Bld) 0.1 % 0-1 [facility] Work Phone: Blood erythrocytes count (nu mber/volume)on 03-25-2021 RBC (Bld) [#/Vol] 3.59 10*6/uL 4.6-6.2 [facility] Work Phone: Blood hemoglobin measurement (mass/volume)on 03-25-2021 Hemoglobin (Bld) [Mass/Vol] 9.3 g/dL 13.0-16.5 [facility] Work Phone: Blood lymphocytes/100 leukoc yteson 03-25-2021 Lymphocytes/100 WBC (Bld) 6.0 % 19-41 [facility] Work Phone: Blood monocytes/100 leukocyt eson 03-25-2021 Monocytes/100 WBC (Bld) 8.8 % 0-10 [facility] Work Phone: Blood platelet mean volumeon 03-25-2021 Platelet mean volume (Bld) [Entitic vol] 10.8 fL 6.2-12.0 [facility] Work Phone: Determination of erythrocyte mean corpuscular volume (MCV)on 03-25-2021 MCV (RBC) [Entitic vol] 81.1 fL 80-94 [facility] Work Phone: [phone] Glucose Glucometer (BldC) [M ass/Vol]on 03-25-2021 Glucose [Mass/Vol] 389 mg/dL 70-110 [facility] Work Phone: [phone] Hematocrit Auto (Bld) [Volum e fraction]on 03-25-2021 Hematocrit (Bld) [Volume fraction] 29.1 % 40-54 [facility] Work Phone: MCHC Auto (RBC) [Mass/Vol]on 03-25-2021 MCHC (RBC) [Mass/Vol] 32.0 g/dL 32-36 [facility] Work Phone: [phone] No Panel Informationon 03-25 25.9 pg 27.0-32.0 [facility] Work Phone: 15.7 % 11.6-14.6 [facility] Work Phone: 45.5 fl 35.1-43.9 [facility] Work Phone: 2.700 % 0.0-0.9 [facility] Work Phone: 0 % 0-5 [facility] Work Phone: 119 mL/min >60 [facility] Work Phone: [phone] 144 mL/min >60 [facility] Work Phone: [phone] 72.16 ml/min [facility] Work Phone: [phone] 50.4 RATIO 10-20 [facility] Work Phone: [phone] 3.1 g/dL 2.2-4.2 [facility] Work Phone: [phone] 63 U/L 45-117 [facility] Work Phone: [phone] 22 U/L 16-61 [facility] Work Phone: [phone] 24.0 mmol/L 21.0-32.0 [facility] Work Phone: [phone] Platelets bldon 03-25-2021 Platelets (Bld) [#/Vol] 312 10*3/uL 150-450 [facility] Work Phone: [phone] Serum or plasma albumin yocasta urement (mass/volume)on 03-25-2021 Albumin [Mass/Vol] 2.4 g/dL 3.2-5.0 [facility] Work Phone: [phone] Serum or plasma albumin/glob ulin mass ratioon 03-25-2021 Albumin/Globulin [Mass ratio] 0.8 {ratio} 0.9-2.4 [facility] Work Phone: [phone] Serum or plasma calcium yocasta urement (mass/volume)on 03-25-2021 Calcium [Mass/Vol] 8.6 mg/dL 8.5-10.1 [facility] Work Phone: [phone] Serum or plasma creatinine m easurement (mass/volume)on 03-25-2021 Creatinine [Mass/Vol] 0.69 mg/dL 0.70-1.30 [facility] Work Phone: [phone] Serum or plasma urea nitroge n measurement (mass/volume)on 03-25-2021 Urea nitrogen [Mass/Vol] 35 mg/dL 7-18 [facility] Work Phone: [phone] Thin prep Papanicolaou smear with manual screeningon 03-25-2021 Thin prep Papanicolaou smear with manual screening 5 U/L 15-37 [facility] Work Phone: Thin prep Papanicolaou smear with manual screening 7 5-15 [facility] Work Phone: No Panel Informationon 03-24 1.9 mg/dL 1.6-2.6 [facility] Work Phone: Blood band neutrophil count as percentage of total leukocyteson 03-23-2021 Band form neutrophils/100 WBC (Bld) 4 % 0-5 [facility] Work Phone: Blood lymphocytes/100 leukoc yteson 03-23-2021 Lymphocytes/100 WBC (Bld) 7 % 19-41 [facility] Work Phone: Blood metamyelocytes/100 dangelo kocyteson 03-23-2021 Metamyelocytes/100 WBC (Bld) 3 % 0-1 [facility] Work Phone: Blood monocytes/100 leukocyt eson 03-23-2021 Monocytes/100 WBC (Bld) 7 % 0-10 [facility] Work Phone: Blood platelet adequacy dete ction by light microscopyon 03-23-2021 Platelets LM Ql (Bld) ADEQUATE ADEQ [facility] Work Phone: Blood segmented neutrophils/ 100 leukocyteson 03-23-2021 Segmented neutrophils/100 WBC (Bld) 79 % 47-70 [facility] Work Phone: RBC morphologyon 03-23-2021 RBC morphology finding Nom (Bld) NORM C+C NORMAL NORM C&C [facility] Work Phone: Review by pathologiston 02-25 Pathologist review Sohan (Unsp spec) [Interp] Reviewed [facility] Work Phone: Total cell counton Cells counted Molgen (Bld/Tiss) [#] 100 MANUAL DIFF [facility] Work Phone: Basophil percentageon 2021 Basophil percentage 1.7 mmol/L 0.4-2.0 [facility] Work Phone: Blood manual differential co mment interpretation (narrative result)on 03-22-2021 Manual differential comment Sohan (Bld) [Interp] SCANNED [facility] Work Phone: No Panel Informationon 03-22 429 mg/dl 203-444 [facility] Work Phone: 1.02 FEU/ug/m 0.27-0.49 [facility] Work Phone: [phone] 24 U/L 39-308 [facility] Work Phone: [phone] 14 pg/mL 3.0-78.0 [facility] Work Phone: [phone] 87.9 pg/mL 0-100 [facility] Work Phone: No growth in 5 days. [facility] Work Phone: [phone] Serum or plasma C reactive p rotein measurement (mass/volume)on 03-22-2021 CRP [Mass/Vol] 9.08 mg/L 0.0-3.0 [facility] Work Phone: Serum procalcitonin measurem enton 03-22-2021 Procalcitonin [Mass/Vol] 0.16 ng/mL 0.00-0.09 [facility] Work Phone: Thin prep Papanicolaou smear with manual screeningon 03-22-2021 Thin prep Papanicolaou smear with manual screening 188 U/L 87-241 [facility] Work Phone: Absolute lymphocyte counton 03-14-2021 Lymphocytes Auto (Unsp spec) [#/Vol] 1.11 10*3/uL 0.83-4.51 [facility] Work Phone: Basophil percentageon 2021 Basophil percentage 246 mg/dL 74-106 [facility] Work Phone: Basophil percentage 6.7 g/dL 6.4-8.2 [facility] Work Phone: Basophil percentage 0.40 mg/dL 0.20-1.00 [facility] Work Phone: Basophil percentage 140 mmol/L 136-145 [facility] Work Phone: [phone] Basophil percentage 4.0 mmol/L 3.5-5.1 [facility] Work Phone: Basophil percentage 107 mmol/L 98-107 [facility] Work Phone: Basophil percentage 1.7 mmol/L 0.4-2.0 [facility] Work Phone: Basophils (Bld) [#/Vol] 8.2 10*3/uL 4.4-11.0 [facility] Work Phone: Basophils (Bld) [#/Vol] 5.4 10*3/uL 2.0-7.7 [facility] Work Phone: Basophils/100 WBC (Bld) 66.0 % 47-70 [facility] Work Phone: Basophils/100 WBC (Bld) 5.5 % 0-5 [facility] Work Phone: Basophils/100 WBC (Bld) 0.6 % 0-1 [facility] Work Phone: Blood erythrocytes count (nu mber/volume)on 03-14-2021 RBC (Bld) [#/Vol] 4.05 10*6/uL 4.6-6.2 [facility] Work Phone: Blood hemoglobin measurement (mass/volume)on 03-14-2021 Hemoglobin (Bld) [Mass/Vol] 10.4 g/dL 13.0-16.5 [facility] Work Phone: Blood lymphocytes/100 leukoc yteson 03-14-2021 Lymphocytes/100 WBC (Bld) 13.6 % 19-41 [facility] Work Phone: Blood monocytes/100 leukocyt eson 03-14-2021 Monocytes/100 WBC (Bld) 13.6 % 0-10 [facility] Work Phone: Blood platelet mean volumeon 03-14-2021 Platelet mean volume (Bld) [Entitic vol] 10.1 fL 6.2-12.0 [facility] Work Phone: [phone] Determination of erythrocyte mean corpuscular volume (MCV)on 03-14-2021 MCV (RBC) [Entitic vol] 84.2 fL 80-94 [facility] Work Phone: [phone] Hematocrit Auto (Bld) [Volum e fraction]on 03-14-2021 Hematocrit (Bld) [Volume fraction] 34.1 % 40-54 [facility] Work Phone: [phone] MCHC Auto (RBC) [Mass/Vol]on 03-14-2021 MCHC (RBC) [Mass/Vol] 30.5 g/dL 32-36 [facility] Work Phone: [phone] Panel Informationon 03-14 25.7 pg 27.0-32.0 [facility] Work Phone: [phone] 14.8 % 11.6-14.6 [facility] Work Phone: [phone] 45.6 fl 35.1-43.9 [facility] Work Phone: [phone] 0.700 % 0.0-0.9 [facility] Work Phone: [phone] 0 % 0-5 [facility] Work Phone: [phone] 1.44 FEU/ug/m 0.27-0.49 [facility] Work Phone: [phone] 99 mL/min >60 [facility] Work Phone: [phone] mL/min >60 [facility] Work Phone: [phone] 88.00 ml/min [facility] Work Phone: [phone] 24.5 RATIO 10-20 [facility] Work Phone: [phone] 3.7 g/dL 2.2-4.2 [facility] Work Phone: [phone] 10 pg/mL 3.0-78.0 [facility] Work Phone: 80 U/L 45-117 [facility] Work Phone: [phone] 22 U/L 16-61 [facility] Work Phone: [phone] 26.0 mmol/L 21.0-32.0 [facility] Work Phone: [phone] SARS-CoV-2 (COVID 19) [facility] Work Phone: [phone] No growth in 5 days. [facility] Work Phone: [phone] Platelets bldon 03-14-2021 Platelets (Bld) [#/Vol] 384 10*3/uL 150-450 [facility] Work Phone: [phone] Serum or plasma albumin yocasta urement (mass/volume)on 03-14-2021 Albumin [Mass/Vol] 3.0 g/dL 3.2-5.0 [facility] Work Phone: [phone] Serum or plasma albumin/glob ulin mass ratioon 03-14-2021 Albumin/Globulin [Mass ratio] 0.8 {ratio} 0.9-2.4 [facility] Work Phone: [phone] Serum or plasma calcium yocasta urement (mass/volume)on 03-14-2021 Calcium [Mass/Vol] 8.9 mg/dL 8.5-10.1 [facility] Work Phone: [phone] Serum or plasma creatinine m easurement (mass/volume)on 03-14-2021 Creatinine [Mass/Vol] 0.82 mg/dL 0.70-1.30 [facility] Work Phone: [phone] Serum or plasma urea nitroge n measurement (mass/volume)on 03-14-2021 Urea nitrogen [Mass/Vol] 20 mg/dL 7-18 [facility] Work Phone: [phone] Thin prep Papanicolaou smear with manual screeningon 03-14-2021 Thin prep Papanicolaou smear with manual screening 10 U/L 15-37 [facility] Work Phone: [phone] Thin prep Papanicolaou smear with manual screening 7 5-15 [facility] Work Phone: Absolute lymphocyte counton 02-05-2021 Lymphocytes Auto (Unsp spec) [#/Vol] 1.91 10*3/uL 0.83-4.51 [facility] Work Phone: Basophil percentageon 2020 Basophil percentage 92 mg/dL 74-106 [facility] Work Phone: Basophil percentage 6.7 g/dL 6.4-8.2 [facility] Work Phone: Basophil percentage 0.40 mg/dL 0.20-1.00 [facility] Work Phone: Basophil percentage 101 mg/dL <200 [facility] Work Phone: Basophil percentage 80 mg/dL [facility] Work Phone: Basophil percentage 139 mmol/L 136-145 [facility] Work Phone: Basophil percentage 4.1 mmol/L 3.5-5.1 [facility] Work Phone: Basophil percentage 107 mmol/L 98-107 [facility] Work Phone: Basophils (Bld) [#/Vol] 8.9 10*3/uL 4.4-11.0 [facility] Work Phone: Basophils (Bld) [#/Vol] 5.0 10*3/uL 2.0-7.7 [facility] Work Phone: Basophils/100 WBC (Bld) 5.9 % 0-5 [facility] Work Phone: Blood erythrocytes count (nu mber/volume)on 02-05-2021 RBC (Bld) [#/Vol] 3.94 10*6/uL 4.6-6.2 [facility] Work Phone: Blood hemoglobin measurement (mass/volume)on 02-05-2021 Hemoglobin (Bld) [Mass/Vol] 10.6 g/dL 13.0-16.5 [facility] Work Phone: Blood lymphocytes/100 leukoc yteson 02-05-2021 Lymphocytes/100 WBC (Bld) 21.5 % 19-41 [facility] Work Phone: Blood monocytes/100 leukocyt eson 02-05-2021 Monocytes/100 WBC (Bld) 14.4 % 0-10 [facility] Work Phone: Blood platelet mean volumeon 02-05-2021 Platelet mean volume (Bld) [Entitic vol] 11.1 fL 6.2-12.0 [facility] Work Phone: Determination of erythrocyte mean corpuscular volume (MCV)on 02-05-2021 MCV (RBC) [Entitic vol] 83.5 fL 80-94 [facility] Work Phone: Hematocrit Auto (Bld) [Volum e fraction]on 02-05-2021 Hematocrit (Bld) [Volume fraction] 32.9 % 40-54 [facility] Work Phone: Laboratory - Hematology and Cell countson 02-05-2021 Basophils/100 WBC (Unsp spec) 0.8 % 0-1 [facility] Work Phone: MCHC Auto (RBC) [Mass/Vol]on 02-05-2021 MCHC (RBC) [Mass/Vol] 32.2 g/dL 32-36 [facility] Work Phone: No Panel Informationon 02-05 26.9 pg 27.0-32.0 [facility] Work Phone: 14.5 % 11.6-14.6 [facility] Work Phone: 44.3 fl 35.1-43.9 [facility] Work Phone: [phone] 56.5 % 47-70 [facility] Work Phone: 0.900 % 0.0-0.9 [facility] Work Phone: [phone] 0 % 0-5 [facility] Work Phone: 114 mL/min >60 [facility] Work Phone: 138 mL/min >60 [facility] Work Phone: 20.7 RATIO 10-20 [facility] Work Phone: 3.6 g/dL 2.2-4.2 [facility] Work Phone: 93 U/L 45-117 [facility] Work Phone: 19 U/L 16-61 [facility] Work Phone: [phone] 25.0 mmol/L 21.0-32.0 [facility] Work Phone: 1.9 pg/mL 2.18-3.98 [facility] Work Phone: 0.92 uIU/mL 0.358-3.74 [facility] Work Phone: 0.92 ng/mL 0.00-4.00 [facility] Work Phone: 1.28 ng/dL 0.76-1.46 [facility] Work Phone: [phone] 27.1 ng/mL [facility] Work Phone: Platelets bldon 02-05-2021 Platelets (Bld) [#/Vol] 374 10*3/uL 150-450 [facility] Work Phone: [phone] Serum or plasma albumin yocasta urement (mass/volume)on 02-05-2021 Albumin [Mass/Vol] 3.1 g/dL 3.2-5.0 [facility] Work Phone: Serum or plasma albumin/glob ulin mass ratioon 02-05-2021 Albumin/Globulin [Mass ratio] 0.9 {ratio} 0.9-2.4 [facility] Work Phone: Serum or plasma calcium yocasta urement (mass/volume)on 02-05-2021 Calcium [Mass/Vol] 8.7 mg/dL 8.5-10.1 [facility] Work Phone: Serum or plasma cholesterol in HDL measurement (mass/volume)on 02-05-2021 Cholesterol in HDL [Mass/Vol] 35 mg/dL [facility] Work Phone: Serum or plasma cholesterol in VLDL measurement (mass/volume)on 02-05-2021 Cholesterol in VLDL [Mass/Vol] 16 mg/dL 5-40 [facility] Work Phone: [phone] Serum or plasma creatinine m easurement (mass/volume)on 02-05-2021 Creatinine [Mass/Vol] 0.72 mg/dL 0.70-1.30 [facility] Work Phone: Serum or plasma low density lipoprotein (LDL) cholesterol measurement (mass/volume)on 02-05-2021 Cholesterol in LDL [Mass/Vol] 50 mg/dL 0-130 [facility] Work Phone: Serum or plasma urea nitroge n measurement (mass/volume)on 02-05-2021 Urea nitrogen [Mass/Vol] 15 mg/dL 7-18 [facility] Work Phone: Thin prep Papanicolaou smear with manual screeningon 02-05-2021 Thin prep Papanicolaou smear with manual screening 13 U/L 15-37 [facility] Work Phone: Thin prep Papanicolaou smear with manual screening 7 5-15 [facility] Work Phone: CNOVSPon 01-12-2019 CNOVS Visit (SP) Office ([facility]) JAYDON ALONZO ([id number]) 1950 M Date Time Provider Department 01/12/19 [...] signs of GI bleeding however. 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 [...] leg. SKIN: No jaundice or rash. NEUROLOGIC: kindergartner II-XII are grossly intact. 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 Normal 30.3-565.7 [facility] Comment on above: Result Comment: Acco unt Credited Iron and TIBCon 01-12-2019 Iron [Mass/Vol] Test sent to [facility]. Normal 41-186 [facility] Comment on above: Result Comment: Acco unt Credited TIBC Test sent to [facility]. Normal 232-386 [facility] Comment on above: Result Comment: Acco unt Credited Transferrin Saturatn Test sent to [facility]. Normal 15-57 [facility] Comment on above: Result Comment: Acco unt Credited PROGRESSon 01-12-2019 PROGRESS HNO ID: [id number] Author: Jaydon Mcconnell Service: ? Author Type: [...] signs of GI bleeding however. 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 [...] leg. SKIN: No jaundice or rash. NEUROLOGIC: kindergartner II-XII are grossly intact. No focal motor [...] to his satisfaction. Jaydon Mcconnell, DO Normal [facility] CBCon 01-12-2019 Erythrocyte distribution width (RBC) [Ratio] 17.9 % High 11.5-15.0 [facility] Hematocrit (Bld) [Volume fraction] 36.4 % Low 39.0-51.0 [facility] Hemoglobin (Bld) [Mass/Vol] 12.0 g/dL Low 13.0-17.0 [facility] MCH (RBC) [Entitic mass] 27.3 pg Normal 26.0-34.0 [facility] MCHC (RBC) [Mass/Vol] 33.0 g/dL Normal 30.5-36.0 [facility] MCV (RBC) [Entitic vol] 82.7 fL Normal 80.0-100.0 [facility] Platelet mean volume (Bld) [Entitic vol] 10.1 fL Normal 9.0-12.7 [facility] Comment on above: Result Comment: Test performed by: [facility], [address] [place] [address] [address] [place] [address]. RBC (Bld) [#/Vol] 4.40 10*6/uL Normal 4.20-6.00 [facility] WBC (Bld) [#/Vol] 6.72 10*3/uL Normal 3.70-11.00 [facility] Platelet Cnt 289 k/uL Normal 150-400 [facility] Bronchoalveolar lavage cultu re with Gram stain Respiratory Culture Citrobacter freundii [facility] Work Phone: Respiratory microbial culture or Staphylococcus aureus isolated. [facility] Work Phone: Culture, urine Bacteria identified Cx Nom (U) Positive [facility] Work Phone: Gram stain for investigation of transfusion reaction Microscopic observation Gram stain Nom (Unsp spec) [facility] Work Phone: Influenza virus A and B and SARS-CoV-2 (COVID-19) Ag panel - Upper respiratory specim SARS-CoV-2 (COVID-19) RNA JUSTIN+probe Ql (Resp) [facility] Work Phone: Laboratory - Microbiology an d Antimicrobial susceptibility Bacteria identified Cx Nom (Bld) No growth in 5 days. [facility] Work Phone: Respiratory pathogens DNA and RNA 12b panel JUSTIN+probe (Unsp spec) [facility] Work Phone: Lower GI hemoglobin IA Ql (S tl) Stool Occult Blood (FOREST) Positive [facility] Work Phone: Microbial respiratory cultur e Bacteria identified Respiratory culture Nom (Unsp spec) or Staphylococcus aureus isolated. [facility] Work Phone: No Panel Information Respiratory Panel (PCR) Rhinovirus [facility] Work Phone: SARS-CoV-2 & FLU Antigen (Rapid) [facility] Work Phone: Streptococcus pneumoniae Antigen (M [facility] Work Phone: Urine Legionella pneumophila antigen detection L. pneumophila Ag Ql (U) [facility] Work Phone: Vital Signs Date Time Vital Sign Value Performing Clinician Facility 07-20-2024 14:48-0400 Body height 180.[address] Donna Will MD Work Phone: [facility] 07-20-2024 14:48-0400 Body temperature 98.2 [degF] Dr. Donna Will MD Work Phone: [facility] 07-20-2024 14:48-0400 Diastolic blood pressure 58 mm[Hg] Dr. Donna Will MD Work Phone: [facility] 07-20-2024 14:48-0400 Heart rate 80 /min Dr. Donna Will MD Work Phone: [facility] 07-20-2024 14:48-0400 Inhaled oxygen flow rate 4 L/min Dr. Donna Will MD Work Phone: [facility] 07-20-2024 14:48-0400 Respiratory rate 18 /min Dr. Donna Will MD Work Phone: [facility] 07-20-2024 14:48-0400 SaO2% (BldA) [Mass fraction] 99 % Dr. Donna Will MD Work Phone: [facility] 07-20-2024 14:48-0400 Systolic blood pressure 112 mm[Hg] Dr. Donna Will MD Work Phone: [facility] 07-08-2024 17:00-0400 Body temperature 97.8 [degF] Dr. Donna Will MD Work Phone: [facility] 07-08-2024 17:00-0400 Diastolic blood pressure 78 mm[Hg] Dr. Donna Will MD Work Phone: [facility] 07-08-2024 17:00-0400 Heart rate 79 /min Dr. Donna Will MD Work Phone: [facility] 07-08-2024 17:00-0400 Respiratory rate 19 /min Dr. Donna Will MD Work Phone: [facility] 07-08-2024 17:00-0400 SaO2% (BldA) [Mass fraction] 100 % Dr. Donna Will MD Work Phone: [facility] 07-08-2024 17:00-0400 Systolic blood pressure 121 mm[Hg] Dr. Donna Will MD Work Phone: [facility] 07-08-2024 16:00-0400 Inhaled oxygen flow rate 4 L/min Dr. Donna Will MD Work Phone: [facility] 07-08-2024 12:29-0400 Body height 180.[address] Donna Will MD Work Phone: [facility] 06-30-2024 10:14-0400 Body mass index (BMI) [Ratio] 30.5 kg/m2 Dr. Donna Will MD Work Phone: [facility] 06-30-2024 10:14-0400 Body temperature 98.2 [degF] Dr. Donna Will MD Work Phone: [facility] 06-30-2024 10:140400 Body weight 99.[address] Donna Will MD Work Phone: [facility] 06-30-2024 10:14-0400 Diastolic blood pressure 61 mm[Hg] Dr. Donna Will MD Work Phone: [facility] 06-30-2024 10:14-0400 Heart rate 73 /min Dr. Donna Will MD Work Phone: [facility] 06-30-2024 10:140400 Inhaled oxygen flow rate 4 L/min Dr. Donna Will MD Work Phone: [facility] 06-30-2024 10:140400 Respiratory rate 16 /min Dr. Donna Will MD Work Phone: [facility] 06-30-2024 10:14-0400 SaO2% (BldA) [Mass fraction] 92 % Dr. Donna Will MD Work Phone: [facility] 06-30-2024 10:14-0400 Systolic blood pressure 123 mm[Hg] Dr. Donna Will MD Work Phone: [facility] 06-25-2024 12:27-0400 Body temperature 97.9 [degF] Dr. Donna Will MD Work Phone: [facility] 06-25-2024 12:27-0400 Diastolic blood pressure 72 mm[Hg] Dr. Donna Will MD Work Phone: [facility] 06-25-2024 12:27-0400 Heart rate 98 /min Dr. Donna Will MD Work Phone: [facility] 06-25-2024 12:27-0400 Inhaled oxygen flow rate 3 L/min Dr. Donna Will MD Work Phone: [facility] 06-25-2024 12:27-0400 Respiratory rate 18 /min Dr. Donna Will MD Work Phone: [facility] 06-25-2024 12:27-0400 SaO2% (BldA) [Mass fraction] 91 % Dr. Donna Will MD Work Phone: [facility] 06-25-2024 12:27-0400 Systolic blood pressure 118 mm[Hg] Dr. Donna Will MD Work Phone: [facility] 06-25-2024 07:04-0400 Inhaled oxygen concentration 30 % Dr. Donna Will MD Work Phone: [facility] 06-25-2024 03:41-0400 Body mass index (BMI) [Ratio] 30.3 kg/m2 Dr. Donna Will MD Work Phone: [facility] 06-25-2024 03:41-0400 Body weight 98.[address] Donna Will MD Work Phone: [facility] 06-21-2024 09:20-0400 Body height 180.[address] Donna Will MD Work Phone: [facility] 05-27-2024 15:19-0400 Body temperature 98.4 [degF] Dr. Donna Will MD Work Phone: [facility] 05-27-2024 15:19-0400 Diastolic blood pressure 64 mm[Hg] Dr. Donna Will MD Work Phone: [facility] 05-27-2024 15:19-0400 Heart rate 61 /min Dr. Donna Will MD Work Phone: [facility] 05-27-2024 15:19-0400 Respiratory rate 18 /min Dr. Donna Will MD Work Phone: [facility] 05-27-2024 15:19-0400 SaO2% (BldA) [Mass fraction] 100 % Dr. Donna Will MD Work Phone: [facility] 05-27-2024 15:19-0400 Systolic blood pressure 120 mm[Hg] Dr. Donna Will MD Work Phone: [facility] 05-20-2024 12:45-0400 Body mass index (BMI) [Ratio] 28.8 kg/m2 Dr. Donna Will MD Work Phone: [facility] 05-20-2024 12:45-0400 Body weight 93.[address] Donna Will MD Work Phone: [facility] 05-20-2024 12:45-0400 Inhaled oxygen flow rate 5 L/min Dr. Donna Will MD Work Phone: [facility] 05-18-2024 13:09-0400 Body mass index (BMI) [Ratio] 28.7 kg/m2 Dr. Donna Will MD Work Phone: [facility] 05-18-2024 13:09-0400 Body temperature 97.4 [degF] Dr. Donna Will MD Work Phone: [facility] 05-18-2024 13:09-0400 Body weight 93.[address] Donna Will MD Work Phone: [facility] 05-18-2024 13:09-0400 Diastolic blood pressure 58 mm[Hg] Dr. Donna Will MD Work Phone: [facility] 05-18-2024 13:09-0400 Heart rate 44 /min Dr. Donna Will MD Work Phone: [facility] 05-18-2024 13:09-0400 Inhaled oxygen flow rate 4 L/min Dr. Donna Will MD Work Phone: [facility] 05-18-2024 13:09-0400 Respiratory rate 20 /min Dr. Donna Will MD Work Phone: [facility] 05-18-2024 13:09-0400 SaO2% (BldA) [Mass fraction] 94 % Dr. Donna Will MD Work Phone: [facility] 05-18-2024 13:09-0400 Systolic blood pressure 110 mm[Hg] Dr. Donna Will MD Work Phone: [facility] 04-27-2024 13:52-0500 Body mass index (BMI) [Ratio] 30.7 kg/m2 Dr. Donna Will MD Work Phone: [facility] 04-27-2024 13:52-0500 Body temperature 97.6 [degF] Dr. Donna Will MD Work Phone: [facility] 04-27-2024 13:52-0500 Body weight 99.[address] Donna Will MD Work Phone: [facility] 04-27-2024 13:52-0500 Diastolic blood pressure 68 mm[Hg] Dr. Donna Will MD Work Phone: [facility] 04-27-2024 13:52-0500 Heart rate 77 /min Dr. Donna Will MD Work Phone: [facility] 04-27-2024 13:52-0500 Inhaled oxygen flow rate 4 L/min Dr. Donna Will MD Work Phone: [facility] 04-27-2024 13:52-0500 Respiratory rate 18 /min Dr. Donna Will MD Work Phone: [facility] 04-27-2024 13:52-0500 SaO2% (BldA) [Mass fraction] 92 % Dr. Donna Will MD Work Phone: [facility] 04-27-2024 13:52-0500 Systolic blood pressure 121 mm[Hg] Dr. Donna Will MD Work Phone: [facility] 04-08-2024 10:46-0500 Heart rate 71 /min Dr. Donna Will MD Work Phone: [facility] 04-08-2024 10:46-0500 Respiratory rate 18 /min Dr. Donna Will MD Work Phone: [facility] 04-08-2024 07:59-0500 Body temperature 97.8 [degF] Dr. Donna Will MD Work Phone: [facility] 04-08-2024 07:59-0500 Diastolic blood pressure 79 mm[Hg] Dr. Donna Will MD Work Phone: [facility] 04-08-2024 07:59-0500 Inhaled oxygen flow rate 4 L/min Dr. Donna Will MD Work Phone: [facility] 04-08-2024 07:59-0500 SaO2% (BldA) [Mass fraction] 98 % Dr. Donna Will MD Work Phone: [facility] 04-08-2024 07:59-0500 Systolic blood pressure 132 mm[Hg] Dr. Donna Will MD Work Phone: [facility] 04-08-2024 05:23-0500 Body mass index (BMI) [Ratio] 30.4 kg/m2 Dr. Donna Will MD Work Phone: [facility] 04-08-2024 05:23-0500 Body weight 99.[address] Donna Will MD Work Phone: [facility] 03-16-2024 11:38-0500 Body mass index (BMI) [Ratio] 28.8 kg/m2 Dr. Donna Will MD Work Phone: [facility] 03-16-2024 11:38-0500 Body weight 98.[address] Donna Will MD Work Phone: [facility] 03-16-2024 11:38-0500 Diastolic blood pressure 59 mm[Hg] Dr. Donna Will MD Work Phone: [facility] 03-16-2024 11:38-0500 Heart rate 76 /min Dr. Donna Will MD Work Phone: [facility] 03-16-2024 11:38-0500 Inhaled oxygen flow rate 4 L/min Dr. Donna Will MD Work Phone: [facility] 03-16-2024 11:38-0500 Respiratory rate 18 /min Dr. Donna Will MD Work Phone: [facility] 03-16-2024 11:38-0500 SaO2% (BldA) [Mass fraction] 85 % Dr. Donna Will MD Work Phone: [facility] 03-16-2024 11:38-0500 Systolic blood pressure 101 mm[Hg] Dr. Donna Will MD Work Phone: [facility] 03-05-2024 12:25-0500 Body mass index (BMI) [Ratio] 28.8 kg/m2 Dr. Donna Will MD Work Phone: [facility] 03-05-2024 12:25-0500 Body temperature 97.4 [degF] Dr. Donna Will MD Work Phone: [facility] 03-05-2024 12:25-0500 Body weight 98.[address] Donna Will MD Work Phone: [facility] 03-05-2024 12:25-0500 Diastolic blood pressure 64 mm[Hg] Dr. Donna Will MD Work Phone: [facility] 03-05-2024 12:25-0500 Heart rate 84 /min Dr. Donna Will MD Work Phone: [facility] 03-05-2024 12:25-0500 Inhaled oxygen flow rate 4 L/min Dr. Donna Will MD Work Phone: [facility] 03-05-2024 12:25-0500 Respiratory rate 28 /min Dr. Donna Will MD Work Phone: [facility] 03-05-2024 12:25-0500 SaO2% (BldA) [Mass fraction] 90 % Dr. Donna Will MD Work Phone: [facility] 03-05-2024 12:25-0500 Systolic blood pressure 103 mm[Hg] Dr. Donna Will MD Work Phone: [facility] 03-03-2024 11:13-0500 Inhaled oxygen flow rate 4 L/min Dr. Donna Will MD Work Phone: [facility] 03-03-2024 11:13-0500 SaO2% (BldA) [Mass fraction] 92 % Dr. Donna Will MD Work Phone: [facility] 03-03-2024 10:02-0500 Body mass index (BMI) [Ratio] 28.8 kg/m2 Dr. Donna Will MD Work Phone: [facility] 03-03-2024 10:02-0500 Body temperature 98.2 [degF] Dr. Donna Will MD Work Phone: [facility] 03-03-2024 10:02-0500 Body weight 98.[address] Donna Will MD Work Phone: [facility] 03-03-2024 10:02-0500 Diastolic blood pressure 68 mm[Hg] Dr. Donna Will MD Work Phone: [facility] 03-03-2024 10:02-0500 Heart rate 83 /min Dr. Donna Will MD Work Phone: [facility] 03-03-2024 10:02-0500 Respiratory rate 20 /min Dr. Donna Will MD Work Phone: [facility] 03-03-2024 10:02-0500 Systolic blood pressure 117 mm[Hg] Dr. Donna Will MD Work Phone: [facility] 06-05-2023 10:30-0400 Diastolic blood pressure 58 mm[Hg] Dr. Donna Will Work Phone: [facility] 06-05-2023 10:30-0400 Heart rate 69 /min Dr. Donna Will Work Phone: [facility] 06-05-2023 10:30-0400 Inhaled oxygen flow rate 5 L/min Dr. Donna Will Work Phone: [facility] 06-05-2023 10:30-0400 Respiratory rate 18 /min Dr. Donna Will Work Phone: [facility] 06-05-2023 10:30-0400 SaO2% (BldA) [Mass fraction] 94 % Dr. Donna Will Work Phone: [facility] 06-05-2023 10:30-0400 Systolic blood pressure 128 mm[Hg] Dr. Donna Will Work Phone: [facility] 06-05-2023 08:45-0400 Body height 180.[address] Donna Will Work Phone: [facility] 06-05-2023 08:45-0400 Body mass index (BMI) [Ratio] 33.3 kg/m2 Dr. Donna Will Work Phone: [facility] 06-05-2023 08:45-0400 Body temperature 96.5 [degF] Dr. Donna Will Work Phone: [facility] 06-05-2023 08:45-0400 Body weight 108.[address] Donna Will Work Phone: [facility] 05-28-2023 10:58-0400 Body mass index (BMI) [Ratio] 33.4 kg/m2 Dr. Donna Will Work Phone: [facility] 05-28-2023 10:58-0400 Body temperature 97.6 [degF] Dr. Donna Will Work Phone: [facility] 05-28-2023 10:58-0400 Body weight 108.[address] Donna Will Work Phone: [facility] 05-28-2023 10:58-0400 Diastolic blood pressure 64 mm[Hg] Dr. Donna Will Work Phone: [facility] 05-28-2023 10:58-0400 Heart rate 81 /min Dr. Donna Will Work Phone: [facility] 05-28-2023 10:58-0400 Inhaled oxygen flow rate 2 L/min Dr. Donna Will Work Phone: [facility] 05-28-2023 10:58-0400 Respiratory rate 18 /min Dr. Donna Will Work Phone: [facility] 05-28-2023 10:58-0400 SaO2% (BldA) [Mass fraction] 90 % Dr. Donna Will Work Phone: [facility] 05-28-2023 10:58-0400 Systolic blood pressure 111 mm[Hg] Dr. Donna Will Work Phone: [facility] 05-12-2023 10:29-0400 Body height 180.[address] Donna Will Work Phone: [facility] 05-12-2023 10:29-0400 Body mass index (BMI) [Ratio] 33.2 kg/m2 Dr. Donna Will Work Phone: [facility] 05-12-2023 10:29-0400 Body weight 107.[address] Donna Will Work Phone: [facility] 05-12-2023 10:29-0400 Diastolic blood pressure 73 mm[Hg] Dr. Donna Will Work Phone: [facility] 05-12-2023 10:29-0400 Heart rate 83 /min Dr. Donna Will Work Phone: [facility] 05-12-2023 10:29-0400 Inhaled oxygen flow rate 4 L/min Dr. Donna Will Work Phone: [facility] 05-12-2023 10:29-0400 Respiratory rate 20 /min Dr. Donna Will Work Phone: [facility] 05-12-2023 10:29-0400 SaO2% (BldA) [Mass fraction] 94 % Dr. Donna Will Work Phone: [facility] 05-12-2023 10:29-0400 Systolic blood pressure 118 mm[Hg] Dr. Donna Will Work Phone: [facility] 05-09-2023 14:09-0400 Body temperature 97.2 [degF] Dr. Donna Will Work Phone: [facility] 05-09-2023 14:09-0400 Diastolic blood pressure 75 mm[Hg] Dr. Donna Will Work Phone: [facility] 05-09-2023 14:09-0400 Heart rate 80 /min Dr. Donna Will Work Phone: [facility] 05-09-2023 14:09-0400 Inhaled oxygen flow rate 4 L/min Dr. Donna Will Work Phone: [facility] 05-09-2023 14:09-0400 Respiratory rate 16 /min Dr. Donna Will Work Phone: [facility] 05-09-2023 14:09-0400 SaO2% (BldA) [Mass fraction] 98 % Dr. Donna Will Work Phone: [facility] 05-09-2023 14:09-0400 Systolic blood pressure 132 mm[Hg] Dr. Donna Will Work Phone: [facility] 05-09-2023 09:04-0400 Body mass index (BMI) [Ratio] 32.9 kg/m2 Dr. Donna Will Work Phone: [facility] 05-09-2023 09:04-0400 Body weight 107.[address] Donna Will Work Phone: [facility] 05-07-2023 11:10-0400 Body mass index (BMI) [Ratio] 32.8 kg/m2 Dr. Donna Will Work Phone: [facility] 05-07-2023 11:10-0400 Body temperature 98.3 [degF] Dr. Donna Will Work Phone: [facility] 05-07-2023 11:10-0400 Body weight 106.[address] Donna Will Work Phone: [facility] 05-07-2023 11:10-0400 Diastolic blood pressure 71 mm[Hg] Dr. Donna Will Work Phone: [facility] 05-07-2023 11:10-0400 Heart rate 83 /min Dr. Donna Will Work Phone: [facility] 05-07-2023 11:10-0400 Inhaled oxygen flow rate 2 L/min Dr. Donna Will Work Phone: [facility] 05-07-2023 11:10-0400 Respiratory rate 18 /min Dr. Donna Will Work Phone: [facility] 05-07-2023 11:10-0400 SaO2% (BldA) [Mass fraction] 91 % Dr. Donna Will Work Phone: [facility] 05-07-2023 11:10-0400 Systolic blood pressure 117 mm[Hg] Dr. Donna Will Work Phone: [facility] 03-27-2023 11:35-0500 Body temperature 97.5 [degF] Dr. Donna Will Work Phone: [facility] 03-27-2023 11:35-0500 Diastolic blood pressure 60 mm[Hg] Dr. Donna Will Work Phone: [facility] 03-27-2023 11:35-0500 Heart rate 76 /min Dr. Donna Will Work Phone: [facility] 03-27-2023 11:35-0500 Inhaled oxygen flow rate 2 L/min Dr. Donna Will Work Phone: [facility] 03-27-2023 11:35-0500 Respiratory rate 18 /min Dr. Donna Will Work Phone: [facility] 03-27-2023 11:35-0500 SaO2% (BldA) [Mass fraction] 90 % Dr. Donna Will Work Phone: [facility] 03-27-2023 11:35-0500 Systolic blood pressure 110 mm[Hg] Dr. Donna Will Work Phone: [facility] 03-21-2023 14:21-0500 Inhaled oxygen flow rate 4 L/min Dr. Donna Will Work Phone: [facility] 03-21-2023 14:00-0500 Body temperature 98 [degF] Dr. Donna Will Work Phone: [facility] 03-21-2023 14:00-0500 Diastolic blood pressure 65 mm[Hg] Dr. Donna Will Work Phone: [facility] 03-21-2023 14:00-0500 Heart rate 82 /min Dr. Donna Will Work Phone: [facility] 03-21-2023 14:00-0500 Respiratory rate 18 /min Dr. Donna Will Work Phone: [facility] 03-21-2023 14:00-0500 SaO2% (BldA) [Mass fraction] 100 % Dr. Donna Will Work Phone: [facility] 03-21-2023 14:00-0500 Systolic blood pressure 103 mm[Hg] Dr. Donna Will Work Phone: [facility] 03-21-2023 08:48-0500 Body mass index (BMI) [Ratio] 28.8 kg/m2 Dr. Donna Will Work Phone: [facility] 03-21-2023 08:48-0500 Body weight 93.[address] Donna Will Work Phone: [facility] 03-18-2023 09:15-0500 Body height 180.[address] Donna Will Work Phone: [facility] 03-16-2023 17:37-0500 Body temperature 96.4 [degF] Dr. Donna Will Work Phone: [facility] 03-16-2023 17:37-0500 Diastolic blood pressure 51 mm[Hg] Dr. Donna Will Work Phone: [facility] 03-16-2023 17:37-0500 Heart rate 68 /min Dr. Donna Will Work Phone: [facility] 03-16-2023 17:37-0500 Inhaled oxygen flow rate 4 L/min Dr. Donna Will Work Phone: [facility] 03-16-2023 17:37-0500 Respiratory rate 22 /min Dr. Donna Will Work Phone: [facility] 03-16-2023 17:37-0500 SaO2% (BldA) [Mass fraction] 100 % Dr. Donna Will Work Phone: [facility] 03-16-2023 17:37-0500 Systolic blood pressure 122 mm[Hg] Dr. Donna Will Work Phone: [facility] 03-16-2023 17:33-0500 Body height 180.[address] Donna Will Work Phone: [facility] 03-16-2023 17:33-0500 Body mass index (BMI) [Ratio] 29.2 kg/m2 Dr. Donna Will Work Phone: [facility] 03-16-2023 17:33-0500 Body weight 95.[address] Donna Will Work Phone: [facility] 03-06-2023 14:12-0500 Heart rate 99 /min Dr. Donna Will Work Phone: [facility] 03-06-2023 14:12-0500 Respiratory rate 18 /min Dr. Donna Will Work Phone: [facility] 03-06-2023 11:52-0500 Body temperature 97.8 [degF] Dr. Donna Will Work Phone: [facility] 03-06-2023 11:52-0500 Diastolic blood pressure 56 mm[Hg] Dr. Donna Will Work Phone: [facility] 03-06-2023 11:52-0500 Inhaled oxygen flow rate 3 L/min Dr. Donna Will Work Phone: [facility] 03-06-2023 11:52-0500 SaO2% (BldA) [Mass fraction] 94 % Dr. Donna Will Work Phone: [facility] 03-06-2023 11:52-0500 Systolic blood pressure 94 mm[Hg] Dr. Donna Will Work Phone: [facility] 03-06-2023 04:59-0500 Body mass index (BMI) [Ratio] 33.5 kg/m2 Dr. Donna Will Work Phone: [facility] 03-06-2023 04:59-0500 Body weight [address] Donna Will Work Phone: [facility] 03-05-2023 15:41-0500 Body height 180.[address] Donna Will Work Phone: [facility] 02-28-2023 16:15-0500 Diastolic blood pressure 71 mm[Hg] Dr. Donna Will Work Phone: [facility] 02-28-2023 16:15-0500 Heart rate 95 /min Dr. Donna Will Work Phone: [facility] 02-28-2023 16:15-0500 Respiratory rate 31 /min Dr. Donna Will Work Phone: [facility] 02-28-2023 16:15-0500 SaO2% (BldA) [Mass fraction] 90 % Dr. Donna Will Work Phone: [facility] 02-28-2023 16:15-0500 Systolic blood pressure 121 mm[Hg] Dr. Donna Will Work Phone: [facility] 02-28-2023 15:30-0500 Inhaled oxygen flow rate 4 L/min Dr. Donna Will Work Phone: [facility] 02-28-2023 15:00-0500 Body temperature 97.4 [degF] Dr. Donna Will Work Phone: [facility] 02-28-2023 11:08-0500 Body height 180.[address] Donna Will Work Phone: [facility] 02-06-2023 11:14-0500 Body temperature 98.1 [degF] Dr. Donna Will Work Phone: [facility] 02-06-2023 11:14-0500 Diastolic blood pressure 50 mm[Hg] Dr. Donna Will Work Phone: [facility] 02-06-2023 11:14-0500 Heart rate 81 /min Dr. Donna Will Work Phone: [facility] 02-06-2023 11:14-0500 Respiratory rate 16 /min Dr. Donna Will Work Phone: [facility] 02-06-2023 11:14-0500 SaO2% (BldA) [Mass fraction] 100 % Dr. Donna Will Work Phone: [facility] 02-06-2023 11:14-0500 Systolic blood pressure 112 mm[Hg] Dr. Donna Will Work Phone: [facility] 02-06-2023 10:30-0500 Body mass index (BMI) [Ratio] 30.9 kg/m2 Dr. Donna Will Work Phone: [facility] 02-06-2023 10:30-0500 Body weight 100.[address] Donna Will Work Phone: [facility] 02-06-2023 10:30-0500 Inhaled oxygen flow rate 4 L/min Dr. Donna Will Work Phone: [facility] 01-30-2023 11:30-0500 Body temperature 97.7 [degF] Dr. Donna Will Work Phone: [facility] 01-30-2023 11:30-0500 Diastolic blood pressure 49 mm[Hg] Dr. Donna Will Work Phone: [facility] 01-30-2023 11:30-0500 Heart rate 77 /min Dr. Donna Will Work Phone: [facility] 01-30-2023 11:30-0500 Respiratory rate 18 /min Dr. Donna Will Work Phone: [facility] 01-30-2023 11:30-0500 Systolic blood pressure 103 mm[Hg] Dr. Donna Will Work Phone: [facility] 01-30-2023 10:03-0500 Body height 180.[address] Donna Will Work Phone: [facility] 01-30-2023 10:03-0500 Body mass index (BMI) [Ratio] 30.9 kg/m2 Dr. Donna Will Work Phone: [facility] 01-30-2023 10:03-0500 Body weight 100.[address] Donan Will Work Phone: [facility] 01-30-2023 10:03-0500 Inhaled oxygen flow rate 4 L/min Dr. Donna Will Work Phone: [facility] 01-30-2023 10:03-0500 SaO2% (BldA) [Mass fraction] 96 % Dr. Donna Will Work Phone: [facility] 01-28-2023 07:43-0500 Body mass index (BMI) [Ratio] 30.4 kg/m2 Dr. Donna Will Work Phone: [facility] 01-28-2023 07:43-0500 Body temperature 96.9 [degF] Dr. Donna Will Work Phone: [facility] 01-28-2023 07:43-0500 Body weight 98.[address] Donna Will Work Phone: [facility] 01-28-2023 07:43-0500 Diastolic blood pressure 51 mm[Hg] Dr. Donna Will Work Phone: [facility] 01-28-2023 07:43-0500 Heart rate 88 /min Dr. Donna Will Work Phone: [facility] 01-28-2023 07:43-0500 Inhaled oxygen flow rate 3 L/min Dr. Donna Will Work Phone: [facility] 01-28-2023 07:43-0500 Respiratory rate 24 /min Dr. Donna Will Work Phone: [facility] 01-28-2023 07:43-0500 SaO2% (BldA) [Mass fraction] 93 % Dr. Donna Will Work Phone: [facility] 01-28-2023 07:43-0500 Systolic blood pressure 99 mm[Hg] Dr. Donna Will Work Phone: [facility] 01-21-2023 13:48-0500 Body mass index (BMI) [Ratio] 31.8 kg/m2 Dr. Donna Will Work Phone: [facility] 01-21-2023 13:48-0500 Body temperature 97.2 [degF] Dr. Donna Will Work Phone: [facility] 01-21-2023 13:48-0500 Body weight 103.[address] Donna Will Work Phone: [facility] 01-21-2023 13:48-0500 Diastolic blood pressure 57 mm[Hg] Dr. Donna Will Work Phone: [facility] 01-21-2023 13:48-0500 Heart rate 81 /min Dr. Donna Will Work Phone: [facility] 01-21-2023 13:48-0500 Respiratory rate 18 /min Dr. Donna Will Work Phone: [facility] 01-21-2023 13:48-0500 SaO2% (BldA) [Mass fraction] 92 % Dr. Donna Will Work Phone: [facility] 01-21-2023 13:48-0500 Systolic blood pressure 95 mm[Hg] Dr. Donna Will Work Phone: [facility] 11-26-2022 14:52-0400 Body mass index (BMI) [Ratio] 31.8 kg/m2 Dr. Donna Will Work Phone: [facility] 11-26-2022 14:52-0400 Body temperature 98.3 [degF] Dr. Donna Will Work Phone: [facility] 11-26-2022 14:52-0400 Body weight 103.[address] Donna Will Work Phone: [facility] 11-26-2022 14:52-0400 Diastolic blood pressure 64 mm[Hg] Dr. Donna Will Work Phone: [facility] 11-26-2022 14:52-0400 Heart rate 76 /min Dr. Donna Will Work Phone: [facility] 11-26-2022 14:52-0400 Inhaled oxygen flow rate 3 L/min Dr. Donna Will Work Phone: [facility] 11-26-2022 14:52-0400 Respiratory rate 18 /min Dr. oDnna Will Work Phone: [facility] 11-26-2022 14:52-0400 SaO2% (BldA) [Mass fraction] 92 % Dr. Donna Will Work Phone: [facility] 11-26-2022 14:52-0400 Systolic blood pressure 119 mm[Hg] Dr. Donna Will Work Phone: [facility] 11-21-2022 15:15-0400 Body mass index (BMI) [Ratio] 32.2 kg/m2 Dr. Donna Will Work Phone: [facility] 11-21-2022 15:15-0400 Body temperature 97.4 [degF] Dr. Donna Will Work Phone: [facility] 11-21-2022 15:15-0400 Body weight 104.[address] Donna Will Work Phone: [facility] 11-21-2022 15:15-0400 Diastolic blood pressure 51 mm[Hg] Dr. Donna Will Work Phone: [facility] 11-21-2022 15:15-0400 Heart rate 92 /min Dr. Donna Will Work Phone: [facility] 11-21-2022 15:15-0400 Inhaled oxygen flow rate 3 L/min Dr. Donna Will Work Phone: [facility] 11-21-2022 15:15-0400 Respiratory rate 16 /min Dr. Donna Will Work Phone: [facility] 11-21-2022 15:15-0400 SaO2% (BldA) [Mass fraction] 91 % Dr. Donna Will Work Phone: [facility] 11-21-2022 15:15-0400 Systolic blood pressure 106 mm[Hg] Dr. Donna Will Work Phone: [facility] 11-17-2022 12:19-0400 Body temperature 98.1 [degF] [employer] DANNIELLE PIÑA Work Phone: [facility] 11-17-2022 12:19-0400 Diastolic blood pressure 58 mm[Hg] [employer] DANNIELLE PIÑA Work Phone: [facility] 11-17-2022 12:19-0400 Heart rate 68 /min [employer] DANNIELLE PIÑA Work Phone: [facility] 11-17-2022 12:19-0400 Inhaled oxygen flow rate 4 L/min [employer] DANNIELLE PIÑA Work Phone: [facility] 11-17-2022 12:19-0400 Respiratory rate 16 /min [employer] DANNIELLE PIÑA Work Phone: [facility] 11-17-2022 12:19-0400 SaO2% (BldA) [Mass fraction] 94 % [employer] DANNIELLE PIÑA Work Phone: [facility] 11-17-2022 12:19-0400 Systolic blood pressure 122 mm[Hg] [employer] DANNIELLE PIÑA Work Phone: [facility] 11-17-2022 04:44-0400 Body mass index (BMI) [Ratio] 34 kg/m2 [employer] DANNIELLE PIÑA Work Phone: [facility] 11-17-2022 04:44-0400 Body weight 110.5 kg [employer] DANNIELLE PIÑA Work Phone: [facility] 11-16-2022 12:21-0400 Body height 180.34 cm [employer] DANNIELLE PIÑA Work Phone: [facility] 11-15-2022 19:22-0400 Body temperature 98.5 [degF] [employer] DANNIELLE PIÑA Work Phone: [facility] 11-15-2022 19:22-0400 Diastolic blood pressure 74 mm[Hg] [employer] DANNIELLE PIÑA Work Phone: [facility] 11-15-2022 19:22-0400 Heart rate 78 /min [employer] DANNIELLE PIÑA Work Phone: [facility] 11-15-2022 19:22-0400 Inhaled oxygen flow rate 4 L/min [employer] DANNIELLE PIÑA Work Phone: [facility] 11-15-2022 19:22-0400 Respiratory rate 25 /min [employer] DANNIELLE PIÑA Work Phone: [facility] 11-15-2022 19:22-0400 SaO2% (BldA) [Mass fraction] 96 % [employer] DANNIELLE PIÑA Work Phone: [facility] 11-15-2022 19:22-0400 Systolic blood pressure 122 mm[Hg] [employer] DANNIELLE PIÑA Work Phone: [facility] 11-15-2022 14:30-0400 Body height 180.34 cm [employer] DANNIELLE PIÑA Work Phone: [facility] 11-15-2022 14:30-0400 Body mass index (BMI) [Ratio] 16 kg/m2 [employer] DANNIELLE PIÑA Work Phone: [facility] 11-15-2022 14:30-0400 Body weight 52.16 kg [employer] DANNIELLE PIÑA Work Phone: [facility] 11-08-2022 15:07-0400 Diastolic blood pressure 66 mm[Hg] [employer] DANNIELLE PIÑA Work Phone: [facility] 11-08-2022 15:07-0400 Heart rate 89 /min [employer] DANNIELLE PIÑA Work Phone: [facility] 11-08-2022 15:07-0400 Respiratory rate 16 /min [employer] DANNIELLE PIÑA Work Phone: [facility] 11-08-2022 15:07-0400 SaO2% (BldA) [Mass fraction] 96 % [employer] DANNIELLE PIÑA Work Phone: [facility] 11-08-2022 15:07-0400 Systolic blood pressure 139 mm[Hg] [employer] DANNIELLE PIÑA Work Phone: [facility] 11-08-2022 14:49-0400 Body temperature 97 [degF] [employer] DANNIELLE PIÑA Work Phone: [facility] 11-08-2022 14:49-0400 Inhaled oxygen flow rate 4 L/min [employer] DANNIELLE PIÑA Work Phone: [facility] 11-08-2022 13:12-0400 Body mass index (BMI) [Ratio] 33 kg/m2 [employer] DANNIELLE PIÑA Work Phone: [facility] 11-08-2022 13:12-0400 Body weight 107.55 kg [employer] DANNIELLE PIÑA Work Phone: [facility] 10-29-2022 13:39-0400 Body mass index (BMI) [Ratio] 33 kg/m2 [employer] DANNIELLE PIÑA Work Phone: [facility] 10-29-2022 13:39-0400 Body temperature 98.3 [degF] [employer] DANNIELLE PIÑA Work Phone: [facility] 10-29-2022 13:39-0400 Body weight 107.55 kg [employer] DANNIELLE PIÑA Work Phone: [facility] 10-29-2022 13:39-0400 Diastolic blood pressure 62 mm[Hg] [employer] DANNIELLE PIÑA Work Phone: [facility] 10-29-2022 13:39-0400 Heart rate 77 /min [employer] DANNIELLE PIÑA Work Phone: [facility] 10-29-2022 13:39-0400 Inhaled oxygen flow rate 4 L/min [employer] DANNIELLE PIÑA Work Phone: [facility] 10-29-2022 13:39-0400 Respiratory rate 18 /min [employer] DANNIELLE PIÑA Work Phone: [facility] 10-29-2022 13:39-0400 SaO2% (BldA) [Mass fraction] 93 % [employer] DANNIELLE PIÑA Work Phone: [facility] 10-29-2022 13:39-0400 Systolic blood pressure 124 mm[Hg] [employer] DANNIELLE PIÑA Work Phone: [facility] 09-30-2022 14:35-0400 Body mass index (BMI) [Ratio] 33.5 kg/m2 [employer] DANNIELLE PIÑA Work Phone: [facility] 09-30-2022 14:35-0400 Body temperature 96.5 [degF] [employer] DANNIELLE PIÑA Work Phone: [facility] 09-30-2022 14:35-0400 Body weight 108.89 kg [employer] DANNIELLE PIÑA Work Phone: [facility] 09-30-2022 14:35-0400 Diastolic blood pressure 56 mm[Hg] [employer] DANNIELLE PIÑA Work Phone: [facility] 09-30-2022 14:35-0400 Heart rate 92 /min [employer] DANNIELLE PIÑA Work Phone: [facility] 09-30-2022 14:35-0400 Inhaled oxygen flow rate 4 L/min [employer] DANNIELLE PIÑA Work Phone: [facility] 09-30-2022 14:35-0400 Respiratory rate 18 /min [employer] DANNIELLE PIÑA Work Phone: [facility] 09-30-2022 14:35-0400 SaO2% (BldA) [Mass fraction] 98 % [employer] DANNIELLE PIÑA Work Phone: [facility] 09-30-2022 14:35-0400 Systolic blood pressure 105 mm[Hg] [employer] DANNIELLE PIÑA Work Phone: [facility] 09-13-2022 11:37-0400 Body mass index (BMI) [Ratio] 33.3 kg/m2 [employer] DANNIELLE PIÑA Work Phone: [facility] 09-13-2022 11:37-0400 Body weight 108.4 kg [employer] DANNIELLE PIÑA Work Phone: [facility] 09-13-2022 11:37-0400 Diastolic blood pressure 71 mm[Hg] [employer] DANNIELLE PIÑA Work Phone: [facility] 09-13-2022 11:37-0400 Heart rate 74 /min [employer] DANNIELLE PIÑA Work Phone: [facility] 09-13-2022 11:37-0400 Inhaled oxygen flow rate 2 L/min [employer] DANNIELLE PIÑA Work Phone: [facility] 09-13-2022 11:37-0400 Respiratory rate 22 /min [employer] DANNIELLE PIÑA Work Phone: [facility] 09-13-2022 11:37-0400 SaO2% (BldA) [Mass fraction] 87 % [employer] DANNIELLE PIÑA Work Phone: [facility] 09-13-2022 11:37-0400 Systolic blood pressure 109 mm[Hg] [employer] DANNIELLE PIÑA Work Phone: [facility] 09-04-2022 13:18-0400 Body mass index (BMI) [Ratio] 33.2 kg/m2 [employer] DANNIELLE PIÑA Work Phone: [facility] 09-04-2022 13:18-0400 Body temperature 97.8 [degF] [employer] DANNIELLE PIÑA Work Phone: [facility] 09-04-2022 13:18-0400 Body weight 107.95 kg [employer] DANNIELLE PIÑA Work Phone: [facility] 09-04-2022 13:18-0400 Diastolic blood pressure 63 mm[Hg] [employer] DANNIELLE PIÑA Work Phone: [facility] 09-04-2022 13:18-0400 Heart rate 93 /min [employer] DANNIELLE PIÑA Work Phone: [facility] 09-04-2022 13:18-0400 Inhaled oxygen flow rate 2 L/min [employer] DANNIELLE PIÑA Work Phone: [facility] 09-04-2022 13:18-0400 Respiratory rate 18 /min [employer] DANNIELLE PIÑA Work Phone: [facility] 09-04-2022 13:18-0400 SaO2% (BldA) [Mass fraction] 93 % [employer] DANNIELLE PIÑA Work Phone: [facility] 09-04-2022 13:18-0400 Systolic blood pressure 112 mm[Hg] MANA[employer] DANNIELLE PIÑA Work Phone: [facility] 08-29-2022 18:09-0400 Diastolic blood pressure 64 mm[Hg] [employer]NA[employer] DANNIELLE PIÑA Work Phone: [facility] 08-29-2022 18:09-0400 Systolic blood pressure 134 mm[Hg] [employer]NA[employer] DANNIELLE PIÑA Work Phone: [facility] 08-29-2022 17:30-0400 Body mass index (BMI) [Ratio] 32.6 kg/m2 [employer] DANNIELLE PIÑA Work Phone: [facility] 08-29-2022 17:30-0400 Body weight 106.14 kg [employer]NA[employer] DANNIELLE PIÑA Work Phone: [facility] 08-29-2022 17:30-0400 Heart rate 78 /min [employer] DANNIELLE PIÑA Work Phone: [facility] 08-29-2022 15:47-0400 Body height 180.34 cm [employer]NA[employer] DANNIELLE PIÑA Work Phone: [facility] 08-29-2022 15:47-0400 Body temperature 97 [degF] [employer] DANNIELLE PIÑA Work Phone: [facility] 08-29-2022 15:47-0400 Inhaled oxygen flow rate 1 L/min [employer] DANNIELLE PIÑA Work Phone: [facility] 08-29-2022 15:47-0400 Respiratory rate 19 /min [employer] DANNIELLE PIÑA Work Phone: [facility] 08-29-2022 15:47-0400 SaO2% (BldA) [Mass fraction] 90 % [employer] DANNIELLE PIÑA Work Phone: [facility] 08-14-2022 13:01-0400 Body mass index (BMI) [Ratio] 32.6 kg/m2 [employer] DANNIELLE PIÑA Work Phone: [facility] 08-14-2022 13:01-0400 Body temperature 98.4 [degF] [employer] DANNIELLE PIÑA Work Phone: [facility] 08-14-2022 13:01-0400 Body weight 106.25 kg MANA[employer] DANNIELLE PIÑA Work Phone: [facility] 08-14-2022 13:01-0400 Diastolic blood pressure 59 mm[Hg] MANA[employer] DANNIELLE PIÑA Work Phone: [facility] 08-14-2022 13:01-0400 Heart rate 86 /min [employer] DANNIELLE PIÑA Work Phone: [facility] 08-14-2022 13:01-0400 Inhaled oxygen flow rate 1 L/min [employer] DANNIELLE PIÑA Work Phone: [facility] 08-14-2022 13:01-0400 Respiratory rate 20 /min [employer] DANNIELLE PIÑA Work Phone: [facility] 08-14-2022 13:01-0400 SaO2% (BldA) [Mass fraction] 90 % [employer] DANNIELLE PIÑA Work Phone: [facility] 08-14-2022 13:01-0400 Systolic blood pressure 104 mm[Hg] MANA[employer] DANNIELLE PIÑA Work Phone: [facility] 08-08-2022 13:55-0400 Body mass index (BMI) [Ratio] 32.7 kg/m2 [employer] DANNIELLE PIÑA Work Phone: [facility] 08-08-2022 13:55-0400 Body temperature 97.4 [degF] [employer]NA[employer] DANNIELLE PIÑA Work Phone: [facility] 08-08-2022 13:55-0400 Body weight 106.39 kg MANA[employer] DANNIELLE PIÑA Work Phone: [facility] 08-08-2022 13:55-0400 Diastolic blood pressure 66 mm[Hg] MANA[employer] DANNIELLE PIÑA Work Phone: [facility] 08-08-2022 13:55-0400 Heart rate 66 /min [employer] DANNIELLE PIÑA Work Phone: [facility] 08-08-2022 13:55-0400 Inhaled oxygen flow rate 1 L/min [employer] DANNIELLE PIÑA Work Phone: [facility] 08-08-2022 13:55-0400 Respiratory rate 16 /min [employer] DANNIELLE PIÑA Work Phone: [facility] 08-08-2022 13:55-0400 SaO2% (BldA) [Mass fraction] 91 % [employer] DANNIELLE PIÑA Work Phone: [facility] 08-08-2022 13:55-0400 Systolic blood pressure 110 mm[Hg] MANA[employer] DANNIELLE PIÑA Work Phone: [facility] 07-23-2022 13:25-0400 Body mass index (BMI) [Ratio] 32.5 kg/m2 MANA[employer] DNANIELLE PIÑA Work Phone: [facility] 07-23-2022 13:25-0400 Body temperature 97.7 [degF] [employer]NA[employer] DANNIELLE PIÑA Work Phone: [facility] 07-23-2022 13:25-0400 Body weight 105.94 kg MANA[employer] DANNIELLE PIÑA Work Phone: [facility] 07-23-2022 13:25-0400 Diastolic blood pressure 72 mm[Hg] MANA[employer] DANNIELLE PIÑA Work Phone: [facility] 07-23-2022 13:25-0400 Heart rate 78 /min MA[employer] DANNIELLE PIÑA Work Phone: [facility] 07-23-2022 13:25-0400 Inhaled oxygen flow rate 1.5 L/min [employer] DANNIELLE PIÑA Work Phone: [facility] 07-23-2022 13:25-0400 Respiratory rate 18 /min [employer]NA[employer] DANNIELLE PIÑA Work Phone: [facility] 07-23-2022 13:25-0400 SaO2% (BldA) [Mass fraction] 92 % [employer] DANNIELLE PIÑA Work Phone: [facility] 07-23-2022 13:25-0400 Systolic blood pressure 116 mm[Hg] MANA[employer] DANNIELLE PIÑA Work Phone: [facility] 05-29-2022 07:55-0400 Body height 180.34 cm MANA[employer] DANNIELLE PIÑA Work Phone: [facility] 05-29-2022 07:55-0400 Body mass index (BMI) [Ratio] 28.3 kg/m2 [employer] DANNIELLE PIÑA Work Phone: [facility] 05-29-2022 07:55-0400 Body temperature 97.5 [degF] [employer] DANNIELLE PIÑA Work Phone: [facility] 05-29-2022 07:55-0400 Body weight 92.07 kg MANA[employer] DANNIELLE PIÑA Work Phone: [facility] 05-29-2022 07:55-0400 Diastolic blood pressure 65 mm[Hg] MA[employer] DANNIELLE PIÑA Work Phone: [facility] 05-29-2022 07:55-0400 Heart rate 67 /min [employer] DANNIELLE PIÑA Work Phone: [facility] 05-29-2022 07:55-0400 Inhaled oxygen flow rate 4.5 L/min [employer] DANNIELLE PIÑA Work Phone: [facility] 05-29-2022 07:55-0400 Respiratory rate 16 /min MANA[employer] DANNIELLE PIÑA Work Phone: [facility] 05-29-2022 07:55-0400 SaO2% (BldA) [Mass fraction] 93 % [employer] DANNIELLE PIÑA Work Phone: [facility] 05-29-2022 07:55-0400 Systolic blood pressure 136 mm[Hg] MANA[employer] DANNIELLE PIÑA Work Phone: [facility] 05-15-2022 12:30-0400 Body height 180.34 cm MANAGER [employer] DANNIELLE PIÑA Work Phone: [facility] 05-15-2022 12:30-0400 Body weight 124.73 kg MANAGER [employer] DANNIELLE PIÑA Work Phone: [facility] 05-15-2022 12:30-0400 Heart rate 87 /min MANAGER [employer] DANNIELLE PIÑA Work Phone: [facility] 05-15-2022 12:30-0400 Inhaled oxygen flow rate 2 L/min MANAGER [employer] DANNIELLE PIÑA Work Phone: [facility] 05-15-2022 12:30-0400 SaO2% (BldA) [Mass fraction] 82 % MANAGER [employer] DANNIELLE PIÑA Work Phone: [facility] 05-13-2022 14:51-0400 Body temperature 97.4 [degF] MANAGER [employer] DANNIELLE PIÑA Work Phone: [facility] 05-13-2022 14:51-0400 Diastolic blood pressure 44 mm[Hg] MANAGER [employer] DANNIELLE PIÑA Work Phone: [facility] 05-13-2022 14:51-0400 Heart rate 80 /min MANAGER [employer] DANNIELLE PIÑA Work Phone: [facility] 05-13-2022 14:51-0400 Respiratory rate 16 /min MANAGER [employer] DANNIELLE PIÑA Work Phone: [facility] 05-13-2022 14:51-0400 SaO2% (BldA) [Mass fraction] 98 % MANAGER [employer] DANNIELLE PIÑA Work Phone: [facility] 05-13-2022 14:51-0400 Systolic blood pressure 101 mm[Hg] MANAGER [employer] DANNIELLE PIÑA Work Phone: [facility] 05-13-2022 13:57-0400 Body mass index (BMI) [Ratio] 28.4 kg/m2 MANAGER [employer] DANNIELLE PIÑA Work Phone: [facility] 05-13-2022 13:57-0400 Body weight 92.53 kg MANAGER [employer] DANNIELLE PIÑA Work Phone: [facility] 05-13-2022 13:57-0400 Inhaled oxygen flow rate 4 L/min MANAGER [employer] DANNIELLE PIÑA Work Phone: [facility] 04-29-2022 10:49-0500 Body mass index (BMI) [Ratio] 28.5 kg/m2 MANAGER [employer] DANNIELLE PIÑA Work Phone: [facility] 04-29-2022 10:49-0500 Body temperature 98.2 [degF] MANAGER [employer] DANNIELLE PIÑA Work Phone: [facility] 04-29-2022 10:49-0500 Body weight 92.98 kg MANAGER [employer] DANNIELLE PIÑA Work Phone: [facility] 04-29-2022 10:49-0500 Diastolic blood pressure 61 mm[Hg] MANAGER [employer] DANNIELLE PIÑA Work Phone: [facility] 04-29-2022 10:49-0500 Heart rate 99 /min MANAGER [employer] DANNIELLE PIÑA Work Phone: [facility] 04-29-2022 10:49-0500 Inhaled oxygen flow rate 93 L/min MANAGER [employer] DANNIELLE PIÑA Work Phone: [facility] 04-29-2022 10:49-0500 Respiratory rate 18 /min MANAGER [employer] DANNIELLE PIÑA Work Phone: [facility] 04-29-2022 10:49-0500 SaO2% (BldA) [Mass fraction] 93 % MANAGER [employer] DANNIELLE PIÑA Work Phone: [facility] 04-29-2022 10:49-0500 Systolic blood pressure 110 mm[Hg] MANAGER [employer] DANNIELLE PIÑA Work Phone: [facility] 02-27-2022 06:28-0500 Body height 180.34 cm MANAGER [employer] DANNIELLE PIÑA Work Phone: [facility] 02-27-2022 06:28-0500 Body mass index (BMI) [Ratio] 27.4 kg/m2 MANAGER [employer] DANNIELLE PIÑA Work Phone: [facility] 02-27-2022 06:28-0500 Body temperature 98.1 [degF] MANAGER [employer] DANNIELLE PIÑA Work Phone: [facility] 02-27-2022 06:28-0500 Body weight 89.35 kg MANAGER [employer] DANNIELLE PIÑA Work Phone: [facility] 02-27-2022 06:28-0500 Diastolic blood pressure 68 mm[Hg] MANAGER [employer] DANNIELLE PIÑA Work Phone: [facility] 02-27-2022 06:28-0500 Heart rate 75 /min MANAGER [employer] DANNIELLE PIÑA Work Phone: [facility] 02-27-2022 06:28-0500 Inhaled oxygen flow rate 2 L/min MANAGER [employer] DANNIELLE PIÑA Work Phone: [facility] 02-27-2022 06:28-0500 Respiratory rate 20 /min MANAGER [employer] DANNIELLE PIÑA Work Phone: [facility] 02-27-2022 06:28-0500 SaO2% (BldA) [Mass fraction] 77 % MANAGER [employer] DANNIELLE PIÑA Work Phone: [facility] 02-27-2022 06:28-0500 Systolic blood pressure 131 mm[Hg] MANAGER W[employer] DANNIELLE PIÑA Work Phone: [facility] 02-16-2022 10:19-0500 Inhaled oxygen flow rate 3 L/min MANAGER [employer] DANNIELLE PIÑA Work Phone: [facility] 02-16-2022 09:25-0500 Body temperature 98.6 [degF] MANAGER W[employer] DANNIELLE PIÑA Work Phone: [facility] 02-16-2022 09:25-0500 Diastolic blood pressure 67 mm[Hg] MANAGER [employer] DANNIELLE PIÑA Work Phone: [facility] 02-16-2022 09:25-0500 Heart rate 83 /min MANAGER [employer] DANNIELLE PIÑA Work Phone: [facility] 02-16-2022 09:25-0500 Respiratory rate 18 /min MANAGER [employer] DANNIELLE PIÑA Work Phone: [facility] 02-16-2022 09:25-0500 SaO2% (BldA) [Mass fraction] 93 % MANAGER [employer] DANNIELLE PIÑA Work Phone: [facility] 02-16-2022 09:25-0500 Systolic blood pressure 121 mm[Hg] MANAGER W[employer] DANNIELLE PIÑA Work Phone: [facility] 02-15-2022 11:05-0500 Inhaled oxygen concentration 45 % MANAGER [employer] DANNIELLE PIÑA Work Phone: [facility] 02-14-2022 22:30-0500 Body height 180.34 cm MANAGER [employer] DANNIELLE PIÑA Work Phone: [facility] Work Phone: 02-14-2022 22:30-0500 Body mass index (BMI) [Ratio] 26.9 kg/m2 MANAGER [employer] DANNIELLE PIÑA Work Phone: [facility] 02-14-2022 22:30-0500 Body weight 87.4 kg MANAGER [employer] DANNIELLE PIÑA Work Phone: [facility] 02-14-2022 21:03-0500 Body temperature 98.9 [degF] MANAGER WELDING[employer] DANNIELLE PIÑA Work Phone: [facility] Work Phone: 02-14-2022 21:03-0500 Diastolic blood pressure 59 mm[Hg] MANAGER W[employer] DANNIELLE PIÑA Work Phone: [facility] Work Phone: 02-14-2022 21:03-0500 Heart rate 64 /min MANAGER [employer] DANNIELLE PIÑA Work Phone: [facility] Work Phone: 02-14-2022 21:03-0500 Inhaled oxygen flow rate 4 L/min MANAGER [employer] DANNIELLE PIÑA Work Phone: [facility] Work Phone: 02-14-2022 21:03-0500 Respiratory rate 16 /min MANAGER [employer] DANNIELLE PIÑA Work Phone: [facility] Work Phone: 02-14-2022 21:03-0500 SaO2% (BldA) [Mass fraction] 94 % MANAGER [employer] DANNIELLE PIÑA Work Phone: [facility] Work Phone: 02-14-2022 21:03-0500 Systolic blood pressure 117 mm[Hg] MANAGER W[employer]ING[employer] DANNIELLE PIÑA Work Phone: [facility] Work Phone: 02-14-2022 16:26-0500 Body height 180.34 cm MANAGER W[employer] DANNIELLE PIÑA Work Phone: [facility] Work Phone: 02-14-2022 16:26-0500 Body mass index (BMI) [Ratio] 27.7 kg/m2 MANAGER [employer] DANNIELLE PIÑA Work Phone: [facility] Work Phone: 02-14-2022 16:26-0500 Body weight 90.2 kg MANAGER [employer] DANNIELLE PIÑA Work Phone: [facility] Work Phone: 02-05-2022 11:33-0500 Body mass index (BMI) [Ratio] 27.8 kg/m2 MANAGER [employer] DANNIELLE PIÑA Work Phone: [facility] 02-05-2022 11:33-0500 Body temperature 98.1 [degF] MANAGER W[employer] DANNIELLE PIÑA Work Phone: [facility] 02-05-2022 11:33-0500 Body weight 90.77 kg MANAGER [employer] DANNIELLE PIÑA Work Phone: [facility] 02-05-2022 11:33-0500 Diastolic blood pressure 69 mm[Hg] MANAGER WELDING[employer] DANNIELLE PIÑA Work Phone: [facility] 02-05-2022 11:33-0500 Heart rate 75 /min MANAGER [employer] DANNIELLE PIÑA Work Phone: [facility] 02-05-2022 11:33-0500 Respiratory rate 17 /min MANAGER [employer] DANNIELLE PIÑA Work Phone: [facility] 02-05-2022 11:33-0500 SaO2% (BldA) [Mass fraction] 92 % MANAGER W[employer] DANNIELLE PIÑA Work Phone: [facility] 02-05-2022 11:33-0500 Systolic blood pressure 124 mm[Hg] MANAGER WELDING[employer] DANNIELLE PIÑA Work Phone: [facility] 01-28-2022 12:17-0500 Body temperature 97.6 [degF] MANAGER WELDING[employer] DANNIELLE PIÑA Work Phone: [facility] 01-28-2022 12:17-0500 Diastolic blood pressure 61 mm[Hg] MANAGER W[employer]ING[employer] DANNIELLE PIÑA Work Phone: [facility] 01-28-2022 12:17-0500 Heart rate 57 /min MANAGER W[employer] DANNIELLE PIÑA Work Phone: [facility] 01-28-2022 12:17-0500 Inhaled oxygen flow rate 4 L/min MANAGER W[employer] DANNIELLE PIÑA Work Phone: [facility] 01-28-2022 12:17-0500 Respiratory rate 16 /min MANAGER [employer] DANNIELLE PIÑA Work Phone: [facility] 01-28-2022 12:17-0500 SaO2% (BldA) [Mass fraction] 97 % MANAGER W[employer] DANNIELLE PIÑA Work Phone: [facility] 01-28-2022 12:17-0500 Systolic blood pressure 126 mm[Hg] MANAGER WELDING[employer] DANNIELLE PIÑA Work Phone: [facility] 01-28-2022 10:04-0500 Body mass index (BMI) [Ratio] 27.8 kg/m2 MANAGER [employer] DANNIELLE PIÑA Work Phone: [facility] 01-28-2022 10:04-0500 Body weight 90.71 kg MANAGER W[employer] DANNIELLE PIÑA Work Phone: [facility] 01-14-2022 12:20-0500 Body temperature 97.8 [degF] Dr. Donna Will Work Phone: [facility] Work Phone: 01-14-2022 12:20-0500 Diastolic blood pressure 67 mm[Hg] Dr. Donna Will Work Phone: [facility] Work Phone: 01-14-2022 12:20-0500 Heart rate 80 /min Dr. Donna Will Work Phone: [facility] Work Phone: 01-14-2022 12:20-0500 Respiratory rate 16 /min Dr. Donna Will Work Phone: [facility] Work Phone: 01-14-2022 12:20-0500 SaO2% (BldA) [Mass fraction] 96 % Dr. Donna Will Work Phone: [facility] Work Phone: 01-14-2022 12:20-0500 Systolic blood pressure 140 mm[Hg] Dr. Donna Will Work Phone: [facility] Work Phone: 01-14-2022 10:11-0500 Body height 180.[address] Donna Will Work Phone: [facility] Work Phone: 01-14-2022 10:11-0500 Inhaled oxygen flow rate 4 L/min Dr. Donna Will Work Phone: [facility] Work Phone: 01-07-2022 10:48-0500 Body mass index (BMI) [Ratio] 25.9 kg/m2 Dr. Donna Will Work Phone: [facility] Work Phone: 01-07-2022 10:48-0500 Body weight 84.[address] Donna Will Work Phone: [facility] Work Phone: 12-26-2021 14:21-0400 Body height 180.[address] Donna Will Work Phone: [facility] Work Phone: 12-26-2021 14:13-0400 Body mass index (BMI) [Ratio] 25.9 kg/m2 Dr. Donna Will Work Phone: [facility] 12-26-2021 14:13-0400 Body temperature 98.6 [degF] Dr. Donna Will Work Phone: [facility] 12-26-2021 14:13-0400 Body weight 84.[address] Donna Will Work Phone: [facility] 12-26-2021 14:13-0400 Diastolic blood pressure 65 mm[Hg] Dr. Donna Will Work Phone: [facility] 12-26-2021 14:13-0400 Heart rate 77 /min Dr. Donna Will Work Phone: [facility] 12-26-2021 14:13-0400 Respiratory rate 17 /min Dr. Donna Will Work Phone: [facility] 12-26-2021 14:13-0400 SaO2% (BldA) [Mass fraction] 89 % Dr. Donna Will Work Phone: [facility] 12-26-2021 14:13-0400 Systolic blood pressure 131 mm[Hg] Dr. Donna Will Work Phone: [facility] 12-11-2021 14:07-0400 Body temperature 98 [degF] Dr. Donna Will Work Phone: [facility] 12-11-2021 14:07-0400 Diastolic blood pressure 63 mm[Hg] Dr. Donna Will Work Phone: [facility] 12-11-2021 14:07-0400 Heart rate 72 /min Dr. Donna Will Work Phone: [facility] 12-11-2021 14:07-0400 Inhaled oxygen flow rate 2 L/min Dr. Donna Will Work Phone: [facility] 12-11-2021 14:07-0400 Respiratory rate 18 /min Dr. Donna Will Work Phone: [facility] 12-11-2021 14:07-0400 SaO2% (BldA) [Mass fraction] 94 % Dr. Donna Will Work Phone: [facility] 12-11-2021 14:07-0400 Systolic blood pressure 144 mm[Hg] Dr. Donna Will Work Phone: [facility] 12-11-2021 06:00-0400 Body weight 85.[address] Donna Will Work Phone: [facility] 12-10-2021 09:37-0400 Body height 180.[address] Donna Will Work Phone: [facility] Work Phone: 12-10-2021 09:37-0400 Body mass index (BMI) [Ratio] 26.5 kg/m2 Dr. Donna Will Work Phone: [facility] 12-08-2021 19:46-0400 Body temperature 99.2 [degF] Dr. Donna Will Work Phone: [facility] Work Phone: 12-08-2021 19:46-0400 Diastolic blood pressure 62 mm[Hg] Dr. Donna Will Work Phone: [facility] Work Phone: 12-08-2021 19:46-0400 Heart rate 94 /min Dr. Donna Will Work Phone: [facility] Work Phone: 12-08-2021 19:46-0400 Inhaled oxygen flow rate 5 L/min Dr. Donna Will Work Phone: [facility] Work Phone: 12-08-2021 19:46-0400 Respiratory rate 21 /min Dr. Donna Will Work Phone: [facility] Work Phone: 12-08-2021 19:46-0400 SaO2% (BldA) [Mass fraction] 95 % Dr. Donna Will Work Phone: [facility] Work Phone: 12-08-2021 19:46-0400 Systolic blood pressure 121 mm[Hg] Dr. Donna Will Work Phone: [facility] Work Phone: 12-08-2021 17:06-0400 Body height 180.[address] Donna Will Work Phone: [facility] Work Phone: 12-08-2021 17:06-0400 Body mass index (BMI) [Ratio] 26.9 kg/m2 Dr. Donna Will Work Phone: [facility] Work Phone: 12-08-2021 17:06-0400 Body weight 87.[address] Donna Will Work Phone: [facility] Work Phone: 10-26-2021 11:03-0400 Body temperature 97.8 [degF] Dr. Donna Will Work Phone: [facility] Work Phone: 10-26-2021 11:03-0400 Diastolic blood pressure 68 mm[Hg] Dr. Donna Will Work Phone: [facility] Work Phone: 10-26-2021 11:03-0400 Heart rate 68 /min Dr. Donna Will Work Phone: [facility] Work Phone: 10-26-2021 11:03-0400 Inhaled oxygen flow rate 3 L/min Dr. Donna Will Work Phone: [facility] Work Phone: 10-26-2021 11:03-0400 Respiratory rate 18 /min Dr. Donna Will Work Phone: [facility] Work Phone: 10-26-2021 11:03-0400 SaO2% (BldA) [Mass fraction] 94 % Dr. Donna Will Work Phone: [facility] Work Phone: 10-26-2021 11:03-0400 Systolic blood pressure 137 mm[Hg] Dr. Donna Will Work Phone: [facility] Work Phone: 10-25-2021 13:51-0400 Body height 180.[address] Donna Will Work Phone: [facility] Work Phone: 10-25-2021 13:51-0400 Body mass index (BMI) [Ratio] 25.9 kg/m2 Dr. Donna Will Work Phone: [facility] Work Phone: 10-25-2021 13:51-0400 Body weight 84.[address] Dnona Will Work Phone: [facility] Work Phone: 10-23-2021 08:03-0400 Body mass index (BMI) [Ratio] 26.9 kg/m2 Dr. Donna Will Work Phone: [facility] Work Phone: 10-23-2021 08:03-0400 Body temperature 98 [degF] Dr. Donna Will Work Phone: [facility] Work Phone: 10-23-2021 08:03-0400 Body weight 87.[address] Donna Will Work Phone: [facility] Work Phone: 10-23-2021 08:03-0400 Diastolic blood pressure 63 mm[Hg] Dr. Donna Will Work Phone: [facility] Work Phone: 10-23-2021 08:03-0400 Heart rate 96 /min Dr. Donna Will Work Phone: [facility] Work Phone: 10-23-2021 08:03-0400 Inhaled oxygen flow rate 3 L/min Dr. Donna Will Work Phone: [facility] Work Phone: 10-23-2021 08:03-0400 Respiratory rate 18 /min Dr. Donna Will Work Phone: [facility] Work Phone: 10-23-2021 08:03-0400 SaO2% (BldA) [Mass fraction] 81 % Dr. Donna Will Work Phone: [facility] Work Phone: 10-23-2021 08:03-0400 Systolic blood pressure 107 mm[Hg] Dr. Donna Will Work Phone: [facility] Work Phone: 10-16-2021 15:32-0400 Body mass index (BMI) [Ratio] 25.9 kg/m2 Dr. Donna Will Work Phone: [facility] Work Phone: 10-16-2021 15:32-0400 Body temperature 98.3 [degF] Dr. Donna Will Work Phone: [facility] Work Phone: 10-16-2021 15:32-0400 Body weight 84.[address] Donna Will Work Phone: [facility] Work Phone: 10-16-2021 15:32-0400 Diastolic blood pressure 70 mm[Hg] Dr. Donna Will Work Phone: [facility] Work Phone: 10-16-2021 15:32-0400 Heart rate 79 /min Dr. Donna Will Work Phone: [facility] Work Phone: 10-16-2021 15:32-0400 Respiratory rate 17 /min Dr. Donna Will Work Phone: [facility] Work Phone: 10-16-2021 15:32-0400 SaO2% (BldA) [Mass fraction] 95 % Dr. Donna Will Work Phone: [facility] Work Phone: 10-16-2021 15:32-0400 Systolic blood pressure 118 mm[Hg] Dr. Donna Will Work Phone: [facility] Work Phone: 10-09-2021 14:14-0400 Body mass index (BMI) [Ratio] 26.4 kg/m2 Dr. Donna Will Work Phone: [facility] Work Phone: 10-09-2021 14:14-0400 Body weight 86.[address] Donna Will Work Phone: [facility] Work Phone: 10-09-2021 14:14-0400 Diastolic blood pressure 69 mm[Hg] Dr. Donna Will Work Phone: [facility] Work Phone: 10-09-2021 14:14-0400 Heart rate 88 /min Dr. Donna Will Work Phone: [facility] Work Phone: 10-09-2021 14:14-0400 Inhaled oxygen flow rate 2.5 L/min Dr. Donna Will Work Phone: [facility] Work Phone: 10-09-2021 14:14-0400 Respiratory rate 18 /min Dr. Donna Will Work Phone: [facility] Work Phone: 10-09-2021 14:14-0400 SaO2% (BldA) [Mass fraction] 98 % Dr. Donna Will Work Phone: [facility] Work Phone: 10-09-2021 14:14-0400 Systolic blood pressure 123 mm[Hg] Dr. Donna Will Work Phone: [facility] Work Phone: 10-02-2021 14:00-0400 Respiratory rate 24 /min Dr. Donna Will Work Phone: [facility] Work Phone: 10-02-2021 13:50-0400 Body temperature 98.1 [degF] Dr. Donna Will Work Phone: [facility] Work Phone: 10-02-2021 13:50-0400 Diastolic blood pressure 56 mm[Hg] Dr. Donna Will Work Phone: [facility] Work Phone: 10-02-2021 13:50-0400 Heart rate 89 /min Dr. Donna Will Work Phone: [facility] Work Phone: 10-02-2021 13:50-0400 Inhaled oxygen flow rate 3 L/min Dr. Donna Will Work Phone: [facility] Work Phone: 10-02-2021 13:50-0400 SaO2% (BldA) [Mass fraction] 97 % Dr. Donna Will Work Phone: [facility] Work Phone: 10-02-2021 13:50-0400 Systolic blood pressure 114 mm[Hg] Dr. Donna Will Work Phone: [facility] Work Phone: 10-02-2021 06:00-0400 Body weight 83.[address] Donna Will Work Phone: [facility] Work Phone: 10-01-2021 19:46-0400 Body height 180.[address] Donna Will Work Phone: [facility] Work Phone: 10-01-2021 19:46-0400 Body mass index (BMI) [Ratio] 25.7 kg/m2 Dr. Donna Will Work Phone: [facility] Work Phone: 10-01-2021 18:00-0400 Body temperature 98.4 [degF] Dr. Donna Will Work Phone: [facility] Work Phone: 10-01-2021 18:00-0400 Diastolic blood pressure 58 mm[Hg] Dr. Donna Will Work Phone: [facility] Work Phone: 10-01-2021 18:00-0400 Heart rate 84 /min Dr. Donna Will Work Phone: [facility] Work Phone: 10-01-2021 18:00-0400 Inhaled oxygen flow rate 4 L/min Dr. Donna Will Work Phone: [facility] Work Phone: 10-01-2021 18:00-0400 Respiratory rate 19 /min Dr. Donna Will Work Phone: [facility] Work Phone: 10-01-2021 18:00-0400 SaO2% (BldA) [Mass fraction] 95 % Dr. Donna Will Work Phone: [facility] Work Phone: 10-01-2021 18:00-0400 Systolic blood pressure 114 mm[Hg] Dr. Donna Will Work Phone: [facility] Work Phone: 10-01-2021 14:04-0400 Body height 180.[address] Donna Will Work Phone: [facility] Work Phone: 10-01-2021 14:04-0400 Body mass index (BMI) [Ratio] 26.1 kg/m2 Dr. Donna Will Work Phone: [facility] Work Phone: 10-01-2021 14:04-0400 Body weight 84.[address] Donna Will Work Phone: [facility] Work Phone: 09-03-2021 13:52-0400 Body temperature 97.5 [degF] Dr. Donna Will Work Phone: [facility] Work Phone: 09-03-2021 13:52-0400 Diastolic blood pressure 75 mm[Hg] Dr. Donna Will Work Phone: [facility] Work Phone: 09-03-2021 13:52-0400 Heart rate 79 /min Dr. Donna Will Work Phone: [facility] Work Phone: 09-03-2021 13:52-0400 Inhaled oxygen flow rate 4 L/min Dr. Donna Will Work Phone: [facility] Work Phone: 09-03-2021 13:52-0400 Respiratory rate 18 /min Dr. Donna Will Work Phone: [facility] Work Phone: 09-03-2021 13:52-0400 SaO2% (BldA) [Mass fraction] 97 % Dr. Donna Will Work Phone: [facility] Work Phone: 09-03-2021 13:52-0400 Systolic blood pressure 127 mm[Hg] Dr. Donna Will Work Phone: [facility] Work Phone: 08-21-2021 12:06-0400 Body height 187.[address] Donna Will Work Phone: [facility] Work Phone: 08-07-2021 18:22-0400 Body temperature 97.8 [degF] Dr. Donna Will Work Phone: [facility] Work Phone: 08-07-2021 18:22-0400 Diastolic blood pressure 76 mm[Hg] Dr. Donna Will Work Phone: [facility] Work Phone: 08-07-2021 18:22-0400 Heart rate 100 /min Dr. Donna Will Work Phone: [facility] Work Phone: 08-07-2021 18:22-0400 Inhaled oxygen flow rate 4 L/min Dr. Donna Will Work Phone: [facility] Work Phone: 08-07-2021 18:22-0400 Respiratory rate 18 /min Dr. Donna Will Work Phone: [facility] Work Phone: 08-07-2021 18:22-0400 SaO2% (BldA) [Mass fraction] 98 % Dr. Donna Will Work Phone: [facility] Work Phone: 08-07-2021 18:22-0400 Systolic blood pressure 128 mm[Hg] Dr. Donna Will Work Phone: [facility] Work Phone: 08-07-2021 11:11-0400 Body height 180.[address] Donna Will Work Phone: [facility] Work Phone: 08-07-2021 11:11-0400 Body weight 80.[address] Donna Will Work Phone: [facility] Work Phone: 08-06-2021 18:56-0400 Heart rate 107 /min Dr. Donna Will Work Phone: [facility] Work Phone: 08-06-2021 18:56-0400 Respiratory rate 19 /min Dr. Donna Will Work Phone: [facility] Work Phone: 08-06-2021 17:44-0400 SaO2% (BldA) [Mass fraction] 100 % Dr. Donna Will Work Phone: [facility] Work Phone: 08-06-2021 16:34-0400 Body height 180.[address] Donna Will Work Phone: [facility] Work Phone: 08-06-2021 16:34-0400 Body mass index (BMI) [Ratio] 24.8 kg/m2 Dr. Donna Will Work Phone: [facility] Work Phone: 08-06-2021 16:34-0400 Body weight 80.[address] Donna Will Work Phone: [facility] Work Phone: 08-06-2021 16:33-0400 Body temperature 98 [degF] Dr. Donna Will Work Phone: [facility] Work Phone: 08-06-2021 16:33-0400 Diastolic blood pressure 100 mm[Hg] Dr. Donna Will Work Phone: [facility] Work Phone: 08-06-2021 16:33-0400 Systolic blood pressure 141 mm[Hg] Dr. Donna Will Work Phone: [facility] Work Phone: 08-06-2021 15:51-0400 Body temperature 97.8 [degF] Dr. Donna Will Work Phone: [facility] Work Phone: 08-06-2021 15:51-0400 Diastolic blood pressure 64 mm[Hg] Dr. Donna Will Work Phone: [facility] Work Phone: 08-06-2021 15:51-0400 Heart rate 102 /min Dr. Donna Will Work Phone: [facility] Work Phone: 08-06-2021 15:51-0400 Respiratory rate 18 /min Dr. Donna Will Work Phone: [facility] Work Phone: 08-06-2021 15:51-0400 SaO2% (BldA) [Mass fraction] 97 % Dr. Donna Will Work Phone: [facility] Work Phone: 08-06-2021 15:51-0400 Systolic blood pressure 122 mm[Hg] Dr. Donna Will Work Phone: [facility] Work Phone: 08-06-2021 12:07-0400 Body height 180.[address] Donna Will Work Phone: [facility] Work Phone: 08-06-2021 12:07-0400 Body mass index (BMI) [Ratio] 25.2 kg/m2 Dr. Donna Will Work Phone: [facility] Work Phone: 08-06-2021 12:07-0400 Body weight 82.[address] Donna Will Work Phone: [facility] Work Phone: 07-24-2021 08:49-0400 Body height 187.[address] Donna Will Work Phone: [facility] Work Phone: 07-24-2021 08:49-0400 Body mass index (BMI) [Ratio] 23.1 kg/m2 Dr. Donna Will Work Phone: [facility] Work Phone: 07-24-2021 08:49-0400 Body temperature 97.1 [degF] Dr. Donna Will Work Phone: [facility] Work Phone: 07-24-2021 08:49-0400 Body weight 81.[address] Donna Will Work Phone: [facility] Work Phone: 07-24-2021 08:49-0400 Diastolic blood pressure 60 mm[Hg] Dr. Donna Will Work Phone: [facility] Work Phone: 07-24-2021 08:49-0400 Heart rate 91 /min Dr. Donna Will Work Phone: [facility] Work Phone: 07-24-2021 08:49-0400 Inhaled oxygen flow rate 3 L/min Dr. Donna Will Work Phone: [facility] Work Phone: 07-24-2021 08:49-0400 Respiratory rate 14 /min Dr. Donna Will Work Phone: [facility] Work Phone: 07-24-2021 08:49-0400 SaO2% (BldA) [Mass fraction] 93 % Dr. Donna Will Work Phone: [facility] Work Phone: 07-24-2021 08:49-0400 Systolic blood pressure 94 mm[Hg] Dr. Donna Will Work Phone: [facility] Work Phone: 07-24-2021 07:42-0400 Body mass index (BMI) [Ratio] 23.1 kg/m2 Dr. Donna Will Work Phone: [facility] Work Phone: 07-24-2021 07:42-0400 Body temperature 97 [degF] Dr. Donna Will Work Phone: [facility] Work Phone: 07-24-2021 07:42-0400 Body weight 81.[address] Donna Will Work Phone: [facility] Work Phone: 07-24-2021 07:42-0400 Diastolic blood pressure 46 mm[Hg] Dr. Donna Will Work Phone: [facility] Work Phone: 07-24-2021 07:42-0400 Heart rate 79 /min Dr. Donna Will Work Phone: [facility] Work Phone: 07-24-2021 07:42-0400 Inhaled oxygen flow rate 3 L/min Dr. Donna Will Work Phone: [facility] Work Phone: 07-24-2021 07:42-0400 Respiratory rate 16 /min Dr. Donna Will Work Phone: [facility] Work Phone: 07-24-2021 07:42-0400 SaO2% (BldA) [Mass fraction] 93 % Dr. Donna Will Work Phone: [facility] Work Phone: 07-24-2021 07:42-0400 Systolic blood pressure 94 mm[Hg] Dr. Donna Will Work Phone: [facility] Work Phone: 07-24-2021 07:42-0400 Body mass index (BMI) [Ratio] 23.1 kg/m2 Dr. Donna Will Work Phone: [facility] Work Phone: 07-24-2021 07:42-0400 Body temperature 97 [degF] Dr. Donna Will Work Phone: [facility] Work Phone: 07-24-2021 07:42-0400 Body weight 81.[address] Donna Will Work Phone: [facility] Work Phone: 07-24-2021 07:42-0400 Diastolic blood pressure 46 mm[Hg] Dr. Donna Will Work Phone: [facility] Work Phone: 07-24-2021 07:42-0400 Heart rate 79 /min Dr. Donna Will Work Phone: [facility] Work Phone: 07-24-2021 07:42-0400 Respiratory rate 16 /min Dr. Donna Will Work Phone: [facility] Work Phone: 07-24-2021 07:42-0400 SaO2% (BldA) [Mass fraction] 93 % Dr. Donna Will Work Phone: [facility] Work Phone: 07-24-2021 07:42-0400 Systolic blood pressure 94 mm[Hg] Dr. Donna Will Work Phone: [facility] Work Phone: 06-25-2021 13:34-0400 Body mass index (BMI) [Ratio] 24.6 kg/m2 Dr. Donna Will Work Phone: [facility] Work Phone: 06-25-2021 13:34-0400 Body temperature 97.3 [degF] Dr. Donna Will Work Phone: [facility] Work Phone: 06-25-2021 13:34-0400 Body weight 87.[address] Donna Will Work Phone: [facility] Work Phone: 06-25-2021 13:34-0400 Diastolic blood pressure 65 mm[Hg] Dr. Donna Will Work Phone: [facility] Work Phone: 06-25-2021 13:34-0400 Heart rate 85 /min Dr. Donna Will Work Phone: [facility] Work Phone: 06-25-2021 13:34-0400 Inhaled oxygen flow rate 4 L/min Dr. Donna Will Work Phone: [facility] Work Phone: 06-25-2021 13:34-0400 Respiratory rate 16 /min Dr. Donna Will Work Phone: [facility] Work Phone: 06-25-2021 13:34-0400 SaO2% (BldA) [Mass fraction] 93 % Dr. Donna Will Work Phone: [facility] Work Phone: 06-25-2021 13:34-0400 Systolic blood pressure 110 mm[Hg] Dr. Donna Will Work Phone: [facility] Work Phone: 06-25-2021 13:34-0400 Body mass index (BMI) [Ratio] 24.6 kg/m2 Dr. Donna Will Work Phone: [facility] Work Phone: 06-25-2021 13:34-0400 Body temperature 97.3 [degF] Dr. Donna Will Work Phone: [facility] Work Phone: 06-25-2021 13:34-0400 Body weight 87.[address] Donna Will Work Phone: [facility] Work Phone: 06-25-2021 13:34-0400 Diastolic blood pressure 65 mm[Hg] Dr. Donna Will Work Phone: [facility] Work Phone: 06-25-2021 13:34-0400 Heart rate 85 /min Dr. Donna Will Work Phone: [facility] Work Phone: 06-25-2021 13:34-0400 Respiratory rate 16 /min Dr. Donna Will Work Phone: [facility] Work Phone: 06-25-2021 13:34-0400 SaO2% (BldA) [Mass fraction] 93 % Dr. Donna Will Work Phone: [facility] Work Phone: 06-25-2021 13:34-0400 Systolic blood pressure 110 mm[Hg] Dr. Donna Will Work Phone: [facility] Work Phone: 05-29-2021 08:46-0400 Body mass index (BMI) [Ratio] 25.1 kg/m2 Dr. Donna Will Work Phone: [facility] Work Phone: 05-29-2021 08:46-0400 Body temperature 96.5 [degF] Dr. Donna Will Work Phone: [facility] Work Phone: 05-29-2021 08:46-0400 Body weight 88.[address] Donna Will Work Phone: [facility] Work Phone: 05-29-2021 08:46-0400 Diastolic blood pressure 84 mm[Hg] Dr. Donna Will Work Phone: [facility] Work Phone: 05-29-2021 08:46-0400 Heart rate 92 /min Dr. Donna Will Work Phone: [facility] Work Phone: 05-29-2021 08:46-0400 Respiratory rate 14 /min Dr. Donna Will Work Phone: [facility] Work Phone: 05-29-2021 08:46-0400 SaO2% (BldA) [Mass fraction] 98 % Dr. Donna Will Work Phone: [facility] Work Phone: 05-29-2021 08:46-0400 Systolic blood pressure 128 mm[Hg] Dr. Donna Will Work Phone: [facility] Work Phone: 05-29-2021 08:46-0400 Body height 187.[address] Donna Will Work Phone: [facility] Work Phone: 05-29-2021 08:46-0400 Body mass index (BMI) [Ratio] 25.1 kg/m2 Dr. Donna Will Work Phone: [facility] Work Phone: 05-29-2021 08:46-0400 Body temperature 96.5 [degF] Dr. Donna Will Work Phone: [facility] Work Phone: 05-29-2021 08:46-0400 Body weight 88.[address] Donna Will Work Phone: [facility] Work Phone: 05-29-2021 08:46-0400 Diastolic blood pressure 84 mm[Hg] Dr. Donna Will Work Phone: [facility] Work Phone: 05-29-2021 08:46-0400 Heart rate 92 /min Dr. Donna Will Work Phone: [facility] Work Phone: 05-29-2021 08:46-0400 Respiratory rate 14 /min Dr. Donna Will Work Phone: [facility] Work Phone: 05-29-2021 08:46-0400 SaO2% (BldA) [Mass fraction] 98 % Dr. Donna Will Work Phone: [facility] Work Phone: 05-29-2021 08:46-0400 Systolic blood pressure 128 mm[Hg] Dr. Donna Will Work Phone: [facility] Work Phone: 05-18-2021 10:00-0400 Heart rate 73 /min Dr. Donna Will Work Phone: [facility] Work Phone: 05-18-2021 10:00-0400 Respiratory rate 18 /min Dr. Donna Will Work Phone: [facility] Work Phone: 05-18-2021 10:00-0400 SaO2% (BldA) [Mass fraction] 97 % Dr. Donna Will Work Phone: [facility] Work Phone: 05-18-2021 08:07-0400 Inhaled oxygen flow rate 4 L/min Dr. Donna Will Work Phone: [facility] Work Phone: 05-18-2021 05:04-0400 Diastolic blood pressure 63 mm[Hg] Dr. Donna Will Work Phone: [facility] Work Phone: 05-18-2021 05:04-0400 Systolic blood pressure 112 mm[Hg] Dr. Donna Will Work Phone: [facility] Work Phone: 05-17-2021 14:47-0400 Body temperature 96.9 [degF] Dr. Donna Wlil Work Phone: [facility] Work Phone: 05-15-2021 10:13-0400 Body weight 87.[address] Donna Will Work Phone: [facility] Work Phone: 05-14-2021 20:14-0400 Inhaled oxygen concentration 98 % Dr. Donna Will Work Phone: [facility] Work Phone: 05-04-2021 14:55-0500 Body mass index (BMI) [Ratio] 26.1 kg/m2 Dr. Donna Will Work Phone: [facility] Work Phone: 05-04-2021 13:55-0500 Body mass index (BMI) [Ratio] 26.1 kg/m2 Dr. Donna Will Work Phone: [facility] Work Phone: 05-04-2021 12:18-0500 SaO2% (BldA) [Mass fraction] 92 % Dr. Donna Will Work Phone: [facility] Work Phone: 05-04-2021 10:24-0500 Body temperature 98.5 [degF] Dr. Donna Will Work Phone: [facility] Work Phone: 05-04-2021 10:24-0500 Diastolic blood pressure 76 mm[Hg] Dr. Donna Will Work Phone: [facility] Work Phone: 05-04-2021 10:24-0500 Heart rate 98 /min Dr. Donna Will Work Phone: [facility] Work Phone: 05-04-2021 10:24-0500 Respiratory rate 18 /min Dr. Donna Will Work Phone: [facility] Work Phone: 05-04-2021 10:24-0500 Systolic blood pressure 134 mm[Hg] Dr. Donna Will Work Phone: [facility] Work Phone: 05-04-2021 05:00-0500 Body weight [address] Donna Will Work Phone: [facility] Work Phone: 05-02-2021 12:57-0500 Body mass index (BMI) [Ratio] 28.8 kg/m2 Dr. Donna Will Work Phone: [facility] Work Phone: 04-29-2021 05:17-0500 Diastolic blood pressure 54 mm[Hg] Dr. Donna Wlil Work Phone: [facility] Work Phone: 04-29-2021 05:17-0500 Heart rate 70 /min Dr. Donna Will Work Phone: [facility] Work Phone: 04-29-2021 05:17-0500 Systolic blood pressure 108 mm[Hg] Dr. Donna Will Work Phone: [facility] Work Phone: 04-29-2021 01:10-0500 Respiratory rate 20 /min Dr. Donna Will Work Phone: [facility] Work Phone: 04-29-2021 01:10-0500 SaO2% (BldA) [Mass fraction] 92 % Dr. Donna Will Work Phone: [facility] Work Phone: 04-29-2021 00:34-0500 Body temperature 98.6 [degF] Dr. Donna Will Work Phone: [facility] Work Phone: 04-28-2021 20:00-0500 Inhaled oxygen concentration 4 % Dr. Donna Will Work Phone: [facility] Work Phone: 04-27-2021 12:51-0500 Body weight 89.[address] Donna Will Work Phone: [facility] Work Phone: 04-26-2021 15:23-0500 Body mass index (BMI) [Ratio] 28.4 kg/m2 Dr. Donna Will Work Phone: [facility] Work Phone: 04-26-2021 14:43-0500 Body temperature 99.2 [degF] Dr. Donna Will Work Phone: [facility] Work Phone: 04-26-2021 14:43-0500 Diastolic blood pressure 62 mm[Hg] Dr. Donna Will Work Phone: [facility] Work Phone: 04-26-2021 14:43-0500 Heart rate 96 /min Dr. Donna Will Work Phone: [facility] Work Phone: 04-26-2021 14:43-0500 Respiratory rate 16 /min Dr. Donna Will Work Phone: [facility] Work Phone: 04-26-2021 14:43-0500 SaO2% (BldA) [Mass fraction] 93 % Dr. Donna Will Work Phone: [facility] Work Phone: 04-26-2021 14:43-0500 Systolic blood pressure 127 mm[Hg] Dr. Donna Will Work Phone: [facility] Work Phone: 04-25-2021 13:20-0500 Body weight [address] Donna Will Work Phone: [facility] Work Phone: 04-22-2021 16:37-0500 Inhaled oxygen concentration 35 % Dr. Donna Will Work Phone: [facility] Work Phone: 04-21-2021 19:15-0500 Body mass index (BMI) [Ratio] 27.7 kg/m2 Dr. Donna Will Work Phone: [facility] Work Phone: 04-19-2021 13:21-0500 Body mass index (BMI) [Ratio] 28.2 kg/m2 Dr. Donna Will Work Phone: [facility] Work Phone: 04-19-2021 13:21-0500 Body temperature 95.3 [degF] Dr. Donna Will Work Phone: [facility] Work Phone: 04-19-2021 13:21-0500 Body weight 89.[address] Donna Will Work Phone: [facility] Work Phone: 04-19-2021 13:21-0500 Diastolic blood pressure 64 mm[Hg] Dr. Donna Will Work Phone: [facility] Work Phone: 04-19-2021 13:21-0500 Heart rate 77 /min Dr. Donna Will Work Phone: [facility] Work Phone: 04-19-2021 13:21-0500 Respiratory rate 18 /min Dr. Donna Will Work Phone: [facility] Work Phone: 04-19-2021 13:21-0500 SaO2% (BldA) [Mass fraction] 94 % Dr. Donna Will Work Phone: [facility] Work Phone: 04-19-2021 13:21-0500 Systolic blood pressure 128 mm[Hg] Dr. Donna Will Work Phone: [facility] Work Phone: 04-11-2021 13:53-0500 Heart rate 88 /min Dr. Donna Will Work Phone: [facility] Work Phone: 04-11-2021 13:53-0500 Respiratory rate 20 /min Dr. Donna Will Work Phone: [facility] Work Phone: 04-11-2021 13:20-0500 SaO2% (BldA) [Mass fraction] 92 % Dr. Donna Will Work Phone: [facility] Work Phone: 04-11-2021 10:40-0500 Body temperature 97.9 [degF] Dr. Donna Will Work Phone: [facility] Work Phone: 04-11-2021 10:20-0500 Diastolic blood pressure 52 mm[Hg] Dr. Donna Will Work Phone: [facility] Work Phone: 04-11-2021 10:20-0500 Systolic blood pressure 111 mm[Hg] Dr. Donna Will Work Phone: [facility] Work Phone: 04-09-2021 14:39-0500 Body weight 93.[address] Donna Will Work Phone: [facility] Work Phone: 04-08-2021 16:22-0500 Body mass index (BMI) [Ratio] 29.6 kg/m2 Dr. Donna Will Work Phone: [facility] Work Phone: 03-28-2021 08:13-0500 Body temperature 95.9 [degF] Dr. Donna Will Work Phone: [facility] Work Phone: 03-28-2021 08:13-0500 Body weight 97.[address] Donna Will Work Phone: [facility] Work Phone: 03-28-2021 08:13-0500 Diastolic blood pressure 60 mm[Hg] Dr. Donna Will Work Phone: [facility] Work Phone: 03-28-2021 08:13-0500 Heart rate 74 /min Dr. Donna Will Work Phone: [facility] Work Phone: 03-28-2021 08:13-0500 Respiratory rate 16 /min Dr. Donna Will Work Phone: [facility] Work Phone: 03-28-2021 08:13-0500 SaO2% (BldA) [Mass fraction] 93 % Dr. Donna Will Work Phone: [facility] Work Phone: 03-28-2021 08:13-0500 Systolic blood pressure 118 mm[Hg] Dr. Donna Will Work Phone: [facility] Work Phone: 03-25-2021 08:18-0500 SaO2% (BldA) [Mass fraction] 91 % Dr. Donna Will Work Phone: [facility] Work Phone: 03-25-2021 08:07-0500 Heart rate 64 /min Dr. Donna Will Work Phone: [facility] Work Phone: 03-25-2021 07:45-0500 Body temperature 98.7 [degF] Dr. Donna Will Work Phone: [facility] Work Phone: 03-25-2021 07:45-0500 Diastolic blood pressure 58 mm[Hg] Dr. Donna Will Work Phone: [facility] Work Phone: 03-25-2021 07:45-0500 Respiratory rate 16 /min Dr. Donna Will Work Phone: [facility] Work Phone: 03-25-2021 07:45-0500 Systolic blood pressure 121 mm[Hg] Dr. Donna Will Work Phone: [facility] Work Phone: 03-25-2021 04:41-0500 Body weight 99.[address] Donna Will Work Phone: [facility] Work Phone: 03-23-2021 00:57-0500 Body mass index (BMI) [Ratio] 30.2 kg/m2 Dr. Donna Will Work Phone: [facility] Work Phone: 03-14-2021 12:34-0500 SaO2% (BldA) [Mass fraction] 97 % Dr. Donna Will Work Phone: [facility] Work Phone: 03-14-2021 11:44-0500 Heart rate 72 /min Dr. Donna Will Work Phone: [facility] Work Phone: 03-14-2021 11:44-0500 Respiratory rate 18 /min Dr. Donna Will Work Phone: [facility] Work Phone: 03-14-2021 08:41-0500 Body temperature 96 [degF] Dr. Donna Will Work Phone: [facility] Work Phone: 03-14-2021 08:41-0500 Diastolic blood pressure 60 mm[Hg] Dr. Donna Will Work Phone: [facility] Work Phone: 03-14-2021 08:41-0500 Systolic blood pressure 141 mm[Hg] Dr. Donna Will Work Phone: [facility] Work Phone: 03-14-2021 08:39-0500 Body mass index (BMI) [Ratio] 30 kg/m2 Dr. Donna Will Work Phone: [facility] Work Phone: 03-14-2021 08:39-0500 Body weight 97.[address] Donna Will Work Phone: [facility] Work Phone: Encounters Encounter Date Encounter Type Care Provider Facility Start: 08-13-2024 ambulatory Donan Will Facility :[facility] Start: 08-03-2024 ambulatory Tobi Zapata Facility:[facility] Start: 07-27-2024 Dr. Tobi Zapata MD -[facility] Start: 07-25-2024 ambulatory Donna Will Facility :[facility] Start: 07-23-2024 End: 07-23-[address] Donna Will MD Work Phone: [facility] Work Phone: Start: 07-23-2024 End: 07-23-2024 Dr. Tobi Zapata MD -[facility] [place] Work Phone: Start: 07-23-2024 End: 07-23-2024 ambulatory Donna Will Facility:[facility] Start: 07-21-2024 End: 07-21-[address] Donna Will MD Work Phone: [facility] Work Phone: Start: 07-21-2024 End: 07-21-2024 Dr. Wilberto Villafuerte MD -Laboratory Specimen Work Phone: Start: 07-20-2024 End: 07-21-[address] Donna Will MD Work Phone: [facility] Work Phone: Start: 07-20-2024 End: 07-20-2024 Dr. Tobi Zapata MD -[facility] Work Phone: Start: 07-14-2024 End: 07-14-[address] Donna Will MD Work Phone: [facility] Work Phone: Start: 07-14-2024 End: 07-14-2024 Dr. Wilberto Villafuerte MD -Home Health Lab Start: 07-12-2024 End: 07-12-[address] Donna Will MD Work Phone: [facility] Work Phone: Start: 07-12-2024 End: 07-12-2024 GERA Naik -Pulmonary Services/Neurology Work Phone: Start: 07-12-2024 End: 07-12-2024 ambulatory Donna Will Facility:[facility] Start: 07-08-2024 End: 07-08-2024 Emergency department patient visit Dr. Donna Will MD Work Phone: [facility] Work Phone: Start: 07-08-2024 End: 07-08-2024 Dr. Donna Will MD Work Phone: -Emergency Department Work Phone: Start: 07-05-2024 End: 07-05-[address] Donna Will MD Work Phone: [facility] Work Phone: Start: 07-05-2024 End: 07-05-2024 Dr. Wilberto Villafuerte MD -Home Health Lab Start: 07-05-2024 End: 07-05-2024 ambulatory Donna Will Facility:[facility] Start: 06-30-2024 End: 06-30-2024 Dr. Donna Will MD -[facility] Work Phone: Start: 06-30-2024 End: 06-30-2024 ambulatory Donna Will Facility:[facility] Start: 06-29-2024 End: 06-29-2024 Dr. Wilberto Villafuerte MD -Medical Out Work Phone: Start: 06-29-2024 End: 06-29-[address] Donna Will MD Work Phone: [facility] Work Phone: Start: 06-28-2024 Dr. Wilberto astorga MD -Home Health Lab Start: 06-25-2024 Dr. Jordan Ortiz MD - [facility] Work Phone: Start: 06-24-2024 Dr. Jordan Ortiz MD - [facility] Work Phone: Start: 06-23-2024 Dr. Jordan Ortiz MD - [facility] Work Phone: Start: 06-23-2024 Dr. Anthony Singleton DO -[facility] Start: 06-22-2024 ambulatory Donna Will Facility :[facility] Start: 06-22-2024 Dr. Chicho Carson MD -[facility] Start: 06-22-2024 Dr. Jordan Ortiz MD -[facility] Work Phone: Start: 06-22-2024 Dr. Anthony Singleton DO -[facility] Start: 06-21-2024 ambulatory Donna [facility] Facility :[facility] Start: 06-21-2024 Dr. Marco Dang MD -[facility] Start: 06-21-2024 Dr. Jordan Ortiz MD -[facility] Work Phone: Start: 06-20-2024 ambulatory Mable Pritchard Facility:[facility] Start: 06-20-2024 End: 06-25-2024 Evaluation and management of inpatient [facility] Facility:[facility] Start: 06-20-2024 End: 06-25-2024 Dr. Jordan Ortiz MD -[facility] Work Phone: Start: 05-27-2024 Dr. Tobi Zapata MD -[facility] Start: 05-18-2024 End: 05-18-2024 GERA Naik -[facility] Work Phone: Start: 05-18-2024 End: 05-18-2024 ambulatory [facility] Facility:[facility] Start: 04-27-2024 End: 04-27-2024 Martha Dodson MANAGER WELDING- -[facility] Work Phone: Start: 04-27-2024 End: 04-27-2024 ambulatory [facility] Facility:[facility] Start: 04-22-2024 End: 04-22-2024 Khai Galeana [facility] Work Phone: Start: 04-22-2024 End: 04-22-2024 ambulatory [facility] Facility:[facility] Start: 04-08-2024 Dr. Huang Lazcano MD -[facility] Work Phone: Start: 04-07-2024 Khai Galeana DO [facility] Start: 04-07-2024 Dr. Huang Lazcano MD -[facility] Work Phone: Start: 04-07-2024 Dr. Anthony Singleton DO -[facility] Start: 04-06-2024 Khai Galeana DO -[facility] Start: 04-06-2024 Dr. Huang Lazcano MD -[facility] Work Phone: Start: 04-06-2024 Dr. Anthony Singleton DO [facility] Start: 04-05-2024 ambulatory Khai Galeana Facility :[facility] Start: 04-05-2024 End: 04-08-2024 Evaluation and management of inpatient Donna Will Facility:[facility] Start: 04-05-2024 End: 04-08-2024 Dr. Huang Lazcano MD -Intensive Care Unit Work Phone: Start: 03-16-2024 End: 03-16-2024 Elizabeth HILARIO -[facility] Work Phone: Start: 03-16-2024 End: 03-16-2024 ambulatory Elizabeth HILARIO Facility:[facility] Start: 03-05-2024 End: 03-05-2024 MANAGER WELDING Gris Naik -[facility] Work Phone: Start: 03-05-2024 End: 03-05-2024 ambulatory Gris Naik Facility:[facility] Start: 03-05-2024 End: 03-05-2024 ambulatory Gris Naik Facility:[facility] Start: 03-03-2024 End: 03-03-2024 Dr. Donna Will MD -[facility] Work Phone: Start: 03-03-2024 End: 03-03-2024 ambulatory Donna Will Facility:[facility] Start: 02-27-2024 End: 02-27-2024 ambulatory More Pulido NP Facility:[facility] Start: 01-27-2024 End: 01-27-2024 ambulatory Donna Will Facility:[facility] Start: 12-03-2023 End: 12-03-2023 ambulatory Donna Suman Facility:[facility] Start: 11-17-2023 End: 11-17-2023 ambulatory Donna Suman Facility:[facility] Start: 11-15-2023 End: 11-15-2023 ambulatory Donna Suman Facility:[facility] Start: 11-14-2023 ambulatory Huang Lazcano Fac ility:[facility] Start: 11-14-2023 End: 11-24-2023 Evaluation and management of inpatient Donnagol Will Facility:[facility] Start: 11-09-2023 ambulatory Donna Suman Facility :[facility] Start: 11-09-2023 End: 11-11-2023 Evaluation and management of inpatient [facility] Facility:[facility] Start: 10-31-2023 ambulatory Elizabeth HILARIO Facility:[facility] Start: 10-30-2023 End: 10-31-2023 ambulatory [facility] Facility:[facility] Start: 09-29-2023 End: 09-29-2023 ambulatory [facility] Facility:[facility] Start: 09-24-2023 End: 09-24-2023 ambulatory [facility] Facility:[facility] Start: 09-19-2023 End: 09-19-2023 ambulatory [facility] Facility:[facility] Start: 09-15-2023 End: 09-15-2023 ambulatory [facility] Facility:[facility] Start: 09-09-2023 ambulatory Donna Suman Facility :[facility] Start: 09-04-2023 End: 09-04-2023 ambulatory Donna Suman Facility:[facility] Start: 09-04-2023 End: 09-04-2023 ambulatory Donna Suman Facility:[facility] Start: 09-04-2023 End: 09-04-2023 ambulatory Donna Suman Facility:[facility] Start: 06-05-2023 Dr. Donna Garcia hner Work Phone: [facility] Work Phone: Start: 06-05-2023 Dr. Donna Garcia hner Work Phone: [facility] Start: 06-05-2023 End: 06-05-[address] Donna Will Work Phone: [facility] Work Phone: Start: 06-05-2023 End: 06-05-2023 Dr. Donna Will Work Phone: [facility] Work Phone: Start: 05-28-2023 End: 05-28-2023 Dr. Donna Will Work Phone: [facility] Work Phone: Start: 05-12-2023 End: 05-12-[address] Donna Will Work Phone: [facility] Work Phone: Start: 05-12-2023 End: 05-12-2023 Dr. Donna Will Work Phone: [facility]-Labor[facility] Work Phone: Start: 05-09-2023 Dr. Donna de souza Work Phone: [facility] Start: 05-07-2023 End: 05-07-2023 Dr. Donna Will Work Phone: [facility] Work Phone: Start: 05-07-2023 End: 05-07-[address] Donna Will Work Phone: [facility] Work Phone: Start: 05-07-2023 End: 05-07-2023 Dr. Donna Will Work Phone: [facility] Work Phone: Start: 04-25-2023 End: 04-25-[address] Donna Will Work Phone: [facility] Work Phone: Start: 04-25-2023 End: 04-25-2023 Dr. Donna Will Work Phone: [facility] Work Phone: Start: 04-03-2023 End: 04-24-[address] Donan Will Work Phone: [facility] Work Phone: Start: 04-03-2023 End: 04-24-2023 Dr. Donna Will Work Phone: [facility]-Home Health Lab Start: 03-27-2023 End: 03-27-2023 Dr. Donna Will Work Phone: [facility] Work Phone: Start: 03-21-2023 Dr. Donna Garcia hner Work Phone: [facility] Inpatient Physicians Work Phone: Start: 03-21-2023 [address] Perez [facility] Start: 03-21-2023 Patient encounter procedure Adri Perez [facility] Start: 03-20-2023 Dr. Donna Garcia hner Work Phone: [facility] Inpatient Physicians Work Phone: Start: 03-20-2023 Dr. Donna Garcia hner Work Phone: [facility] Start: 03-19-2023 Dr. Donna Garcia hner Work Phone: [facility] Start: 03-19-2023 Dr. Donna Garcia hner Work Phone: [facility] Inpatient Physicians Work Phone: Start: 03-18-2023 Dr. Donna Garcia hner Work Phone: [facility] In[facility] Work Phone: Start: 03-18-2023 Dr. Donna Garcia hner Work Phone: [facility] Start: 03-18-2023 Dr. Donna Garcia hner Work Phone: [facility] Start: 03-17-2023 Dr. Donna Garcia hner Work Phone: [facility] Start: 03-17-2023 Dr. Donna Garcia hner Work Phone: [facility] Start: 03-17-2023 Dr. Donna Garcia hner Work Phone: [facility] Inpatient Physicians Work Phone: Start: 03-17-2023 Dr. Donna Garcia hner Work Phone: [facility] Start: 03-16-2023 Evaluation and management of inpatient Dr. Donna Will Work Phone: [facility] Work Phone: Start: 03-16-2023 End: 03-21-2023 Dr. Donna Will Work Phone: [facility]-Intensive Care Unit Work Phone: Start: 03-06-2023 Dr. Donna Garcia hner Work Phone: [facility] Inpatient Physicians Work Phone: Start: 03-06-2023 End: 03-06-2023 Dr. Donna Will Work Phone: [facility] Heart Group Work Phone: Start: 03-05-2023 End: 03-05-2023 Dr. Donna Will Work Phone: [facility] Inpatient Physicians Work Phone: Start: 03-04-2023 Dr. Donna Garcia hner Work Phone: [facility] Work Phone: Start: 03-03-2023 End: 03-06-2023 Evaluation and management of inpatient Dr. Donna Will Work Phone: [facility] Work Phone: Start: 03-03-2023 End: 03-06-2023 Dr. Donna Will Work Phone: [facility]-Progressive Care Unit Work Phone: Start: 03-02-2023 Dr. Donna Garcia hner Work Phone: [facility] Inpatient Physicians Work Phone: Start: 03-01-2023 Dr. Donna Garcia hner Work Phone: [facility] Inpatient Physicians Work Phone: Start: 02-28-2023 Dr. Donna Garcia hner Work Phone: [facility] Inpatient Physicians Work Phone: Start: 02-28-2023 Evaluation and management of inpatient [facility]. Donna [facility] Start: 02-28-[address] Paula Will Work Phone: [facility] Work Phone: Start: 02-06-[address] Donna Will Work Phone: [facility] Start: 02-06-2023 Dr. Donna Garcia hner Work Phone: [facility] Start: 01-30-[address] Donna Will Work Phone: [facility] Start: 01-28-2023 End: 01-28-[address] [facility] Work Phone: Start: 01-28-2023 End: 01-28-2023 Dr. [facility] Work Phone: Start: 01-25-2023 End: 01-25-[address] Donna Will Work Phone: [facility] Work Phone: Start: 01-25-2023 End: 01-25-[address] Donna Will Work Phone: [facility] Work Phone: Start: 01-25-2023 End: 01-25-2023 Dr. Donna Will Work Phone: [facility] Work Phone: Start: 01-21-2023 End: 01-21-[address] Donna Will Work Phone: [facility] Cancer Care Work Phone: Start: 01-21-2023 End: 01-21-2023 Dr. Donna Will Work Phone: [facility] Work Phone: Start: 11-26-2022 End: 11-26-[address] Donna Will Work Phone: [facility] Work Phone: Start: 11-26-2022 End: 11-26-2022 Dr. Donna Will Work Phone: [facility] Work Phone: Start: 11-21-2022 End: 11-21-[address] Donna Will Work Phone: [facility] [place] Work Phone: Start: 11-21-2022 End: 11-21-2022 Dr. Donna Will Work Phone: [facility] [place] Work Phone: Start: 11-17-2022 Non-patient / Non-visit MANAGER WELDING-C DANNIELLE PIÑA Work Phone: [facility] Inpatient Physicians Work Phone: Start: 11-17-2022 Dr. Donna Garcia hner Work Phone: [facility] Inpatient Physicians Work Phone: Start: 11-16-2022 Non-patient / Non-visit MANAGER WELDING-C DANNIELLE PIÑA Work Phone: [facility] Inpatient Physicians Work Phone: Start: 11-16-2022 Dr. Donna Garcia hner Work Phone: [facility] In[facility] Physicians Work Phone: Start: 11-15-2022 End: 11-17-2022 Evaluation and management of inpatient MANAGER WELDING-C DANNIELLE PIÑA Work Phone: [facility] Work Phone: Start: 11-15-2022 Non-patient / Non-visit MANAGER WELDING-C DANNIELLE PIÑA Work Phone: [facility] Inpatient Physicians Work Phone: Start: 11-15-2022 End: 11-17-2022 Dr. Donna Will Work Phone: [facility] Work Phone: Start: 11-08-2022 Registered Recurring MANAGER WELDING-C SONY Purcell PIÑA Work Phone: [facility] Start: 10-29-2022 End: 10-29-2022 Patient encounter procedure MANAGER WELDING-C DANNIELLE PIÑA Work Phone: [facility] Cancer Care Work Phone: Start: 09-30-2022 End: 09-30-2022 Patient encounter procedure MANAGER WELDING-C DANNIELLE PIÑA Work Phone: [facility] Work Phone: Start: 09-13-2022 End: 09-13-2022 Patient encounter procedure MANAGER WELDING-C DANNIELLE PIÑA Work Phone: [facility] Heart Group Work Phone: Start: 09-04-2022 End: 09-04-2022 Patient encounter procedure MANAGER WELDING-C DANNIELLE PIÑA Work Phone: [facility] Cancer Care Work Phone: Start: 08-29-2022 End: 08-29-2022 Emergency department patient visit MANAGER WELDING-C DANNIELLE PIÑA Work Phone: [facility]-Emergency Department Work Phone: Start: 08-29-2022 End: 08-29-2022 Patient encounter procedure MANAGER WELDING-C DANNIELLE PIÑA Work Phone: [facility]-Laboratory Work Phone: Start: 08-19-2022 End: 08-19-2022 Patient encounter procedure MANAGER WELDING-C DANNIELLE PIÑA Work Phone: [facility] Work Phone: Start: 08-14-2022 End: 08-14-2022 Patient encounter procedure MANAGER WELDING-C DANNIELLE PIÑA Work Phone: [facility] [place] Work Phone: Start: 08-12-2022 End: 08-12-2022 Patient encounter procedure MANAGER WELDING-C DANNIELLE PIÑA Work Phone: [facility] Work Phone: Start: 08-08-2022 End: 08-08-2022 Patient encounter procedure MANAGER WELDING-C DANNIELLE PIÑA Work Phone: [facility] Cancer [facility] Work Phone: Start: 08-08-2022 Registered Recurring MANAGER WELDING-C WAND A PIÑA Work Phone: [facility] Start: 07-23-2022 End: 07-23-2022 Patient encounter procedure MANAGER WELDING-C DANNIELLE PIÑA Work Phone: [facility] Work Phone: Start: 07-09-2022 End: 07-09-2022 Patient encounter procedure MANAGER WELDING-C DANNIELLE PIÑA Work Phone: [facility] Work Phone: Start: 06-19-2022 End: 06-19-2022 ambulatory MANAGER WELDING-C DANNIELLE PIÑA Work Phone: [facility] Work Phone: Start: 06-19-2022 End: 06-19-2022 Patient encounter procedure MANAGER WELDING-C DANNIELLE PIÑA Work Phone: [facility] Gastroenterology Start: 06-05-2022 End: 06-05-2022 ambulatory MANAGER WELDING-C DANNIELLE PIÑA Work Phone: [facility] Work Phone: Start: 06-05-2022 End: 06-05-2022 Patient encounter procedure MANAGER WELDING-C DANNIELLE PIÑA Work Phone: [facility] Start: 05-29-2022 End: 05-29-2022 Patient encounter procedure MANAGER WELDING-C DANNIELLE PIÑA [facility] Start: 05-16-2022 Non-patient / Non-visit MANAGER WELDING-C DANNIELLE PIÑA Work Phone: [facility] Start: 05-15-2022 End: 05-15-2022 ambulatory MANAGER WELDING-C DANNIELLE PIÑA Work Phone: [facility] Work Phone: Start: 05-15-2022 End: 05-15-2022 Patient encounter procedure MANAGER WELDING-C DANNIELLE PIÑA [facility] Start: 05-14-2022 Non-patient / Non-visit MANAGER WELDING-C DANNIELLE PIÑA Work Phone: [facility] Start: 05-13-2022 Registered Recurring MANAGER WELDING-C WAND A PIÑA Work Phone: [facility] Start: 05-13-2022 End: 05-13-2022 ambulatory MANAGER WELDING-C DANNIELLE PIÑA Work Phone: [facility] Work Phone: Start: 05-13-2022 End: 05-13-2022 Patient encounter procedure MANAGER WELDING-C DANNIELLE PIÑA [facility] Start: 04-29-2022 End: 04-29-2022 Patient encounter procedure MANAGER WELDING-C DANNIELLE PIÑA Work Phone: [facility] Start: 03-22-2022 End: 03-22-2022 ambulatory MANAGER WELDING-C DANNIELLE PIÑA Work Phone: [facility] Work Phone: Start: 03-22-2022 End: 03-22-2022 Patient encounter procedure MANAGER WELDING-C DANNIELLE PIÑA Work Phone: [facility] Start: 03-22-2022 End: 03-22-2022 MANAGER WELDING-C DANNIELLE PIÑA Work Phone: [facility] Start: 03-09-2022 End: 03-09-2022 ambulatory MANAGER WELDING-C DANNIELLE PIÑA Work Phone: [facility] Work Phone: Start: 03-09-2022 End: 03-09-2022 Patient encounter procedure MANAGER WELDING-C DANNIELLE PIÑA Work Phone: [facility]-Laboratory, Specimen Start: 03-09-2022 End: 03-09-2022 MANAGER WELDING-C DANNIELLE PIÑA [facility] Start: 02-27-2022 End: 02-27-2022 Patient encounter procedure MANAGER WELDING-C DANNIELLE PIÑA [facility] Start: 02-27-2022 End: 02-27-2022 MANAGER WELDING-C DANNIELLE PIÑA [facility] Start: 02-16-2022 Non-patient / Non-visit MANAGER WELDING-C DANNIELLE PIÑA Work Phone: [facility] Inpatient Physicians Start: 02-16-2022 MANAGER WELDING-C DANNIELLE SIM MONS Work Phone: [facility] Inpatient Physicians Start: 02-16-2022 Non-patient / Non-visit MANAGER WELDING-C DANNIELLE PIÑA Work Phone: [facility] Start: 02-16-2022 MANAGER WELDING-C DANNIELLE SIM MONS Work Phone: [facility] Start: 02-15-2022 Non-patient / Non-visit MANAGER WELDING-C DANNIELLE PIÑA Work Phone: [facility] Inpatient Physicians Start: 02-15-2022 MANAGER WELDING-C DANNIELLE SIM MONS Work Phone: [facility] Inpatient Physicians Start: 02-15-2022 Non-patient / Non-visit MANAGER WELDING-C DANNIELLE PIÑA Work Phone: [facility] Start: 02-15-2022 MANAGER WELDING-C DANNIELLE SIM MONS Work Phone: [facility] Start: 02-14-2022 Non-patient / Non-visit MANAGER WELDING-C DANNIELLE PIÑA Work Phone: [facility] Inpatient Physicians Start: 02-14-2022 End: 02-16-2022 Evaluation and management of inpatient MANAGER WELDING-C DANNIELLE PIÑA [facility] Start: 02-14-2022 End: 02-16-2022 MANAGER WELDING-C DANNIELLE PIÑA [facility] Start: 02-06-2022 End: 02-06-2022 ambulatory MANAGER WELDING-C DANNIELLE PIÑA Work Phone: [facility] Work Phone: Start: 02-06-2022 End: 02-06-2022 Patient encounter procedure MANAGER WELDING-C DANNIELLE PIÑA Work Phone: [facility]-Laboratory, Specimen Start: 02-06-2022 End: 02-06-2022 MANAGER WELDING-C DANNIELLE PIÑA Work Phone: [facility]-Laboratory, Specimen Start: 02-05-2022 Registered Recurring MANAGER WELDING-C EDWARDD A PIÑA Work Phone: [facility] Start: 02-05-2022 End: 02-05-2022 Patient encounter procedure MANAGER WELDING-C DANNIELLE PIÑA Work Phone: [facility] Start: 02-05-2022 End: 02-05-2022 MANAGER WELDING-C DANNIELLE PIÑA Work Phone: [facility] Start: 01-15-2022 End: 01-15-[address] Donna Will Work Phone: [facility] Work Phone: Start: 01-15-2022 End: 01-15-[address] Donna Will Work Phone: [facility]-Laboratory, Specimen Start: 01-15-2022 End: 01-15-2022 MANAGER WELDING-C DANNIELLE PIÑA Work Phone: [facility]-Laboratory, Specimen Start: 01-14-[address] Donna Will Work Phone: [facility] Start: 01-08-2022 End: 01-08-[address] Donna Will Work Phone: [facility] Gastroenterology Start: 01-08-2022 End: 01-08-2022 MANAGER WELDING-C DANNIELLE PIÑA Work Phone: [facility]astroenter[facility] Start: 12-26-[address] Donna Will Work Phone: [facility] Start: 12-26-2021 End: 12-26-[address] Donna Will Work Phone: [facility] Start: 12-26-2021 End: 12-26-2021 MANAGER WELDING-C DANNILELE PIÑA Work Phone: [facility] Start: 12-21-2021 End: 12-21-[address] Donna Will Work Phone: [facility] Work Phone: Start: 12-21-2021 End: 12-21-[address] Donna Will Work Phone: [facility] Gastroenterology Start: 12-21-2021 End: 12-21-2021 MANAGER WELDING-C DANNIELLE PIÑA Work Phone: [facility]astroenterology Start: 12-11-2021 Non-patient / Non-visit Dr. Donna Will Work Phone: [facility] Inpatient Physicians Start: 12-11-2021 MANAGER WELDING-C DANNIELLE SIM MONS Work Phone: [facility] In[facility] Physicians Start: 12-10-2021 Non-patient / Non-visit Dr. Donna Will Work Phone: [facility] Start: 12-10-2021 MANAGER WELDING-C DANNIELLE SIM MONS Work Phone: [facility] Start: 12-09-2021 Non-patient / Non-visit Dr. Donna Will Work Phone: [facility] Inpatient Physicians Start: 12-09-2021 MANAGER WELDING-C DANNIELLE SIM MONS Work Phone: [facility] Inpatient Physicians Start: 12-09-2021 Non-patient / Non-visit Dr. Donna Will Work Phone: [facility] In[facility] Physicians Start: 12-09-2021 MANAGER WELDING-C DANNIELLE SIM MONS Work Phone: [facility] In[facility] Physicians Start: 12-08-2021 Non-patient / Non-visit Dr. Donna Will Work Phone: [facility] Inpatient Physicians Start: 12-08-2021 End: 12-11-2021 Evaluation and management of inpatient Dr. Donna Will Work Phone: [facility] Surgical 3 Start: 12-08-2021 End: 12-11-2021 MANAGER WELDING-C DANNIELLE PIÑA Work Phone: [facility] Surgical 3 Start: 11-16-2021 End: 11-16-[address] Donna Will Work Phone: [facility]-Laboratory, Specimen Start: 10-26-2021 Non-patient / Non-visit Dr. Donna Will Work Phone: [facility] Inpatient Physicians Start: 10-25-2021 Non-patient / Non-visit Dr. Donna Will Work Phone: [facility] Start: 10-25-2021 Non-patient / Non-visit Dr. Donna Will Work Phone: [facility] Inpatient Physicians Start: 10-24-2021 Non-patient / Non-visit Dr. Donna Will Work Phone: [facility] Start: 10-24-2021 Non-patient / Non-visit Dr. Donna Will Work Phone: [facility] Inpatient Physicians Start: 10-23-2021 Non-patient / Non-visit Dr. Donna Will Work Phone: [facility] In[facility] Phys[facility] Start: 10-23-2021 End: 10-26-2021 Evaluation and management of inpatient Dr. Donna Will [facility] Start: 10-23-2021 End: 10-23-[address] Donna Will [facility] Start: 10-16-2021 End: 10-16-[address] Donna Will Work Phone: [facility] Start: 10-09-2021 End: 10-09-[address] Donna Will Work Phone: [facility] Start: 10-02-2021 Non-patient / Non-visit Dr. Donna Will Work Phone: [facility] Inpatient Physicians Start: 10-01-2021 End: 10-02-2021 Evaluation and management of inpatient Dr. Donna Will [facility] Start: 09-04-2021 Non-patient / Non-visit Dr. Donna Will Work Phone: [facility] Start: 09-04-2021 End: 09-04-[address] Donna Will Work Phone: [facility]-Cardiovascular Services Start: 09-03-2021 End: 09-03-[address] Donna Will Work Phone: [facility] Start: 08-07-2021 Non-patient / Non-visit Dr. Donna Will Work Phone: [facility] In[facility] Physicians Start: 08-06-2021 End: 08-07-2021 Evaluation and management of inpatient Dr. Donna Will [facility] Start: 08-03-2021 End: 08-03-[address] Donna Will Work Phone: [facility]-Laboratory, Specimen Start: 08-01-2021 End: 08-01-[address] Donna Will Work Phone: [facility]-Laboratory, Specimen Start: 07-26-2021 End: 07-26-[address] Donna Will Work Phone: [facility] Internal Medicine Start: 07-24-2021 End: 07-24-[address] Donna Will [facility] Start: 06-25-2021 End: 06-25-[address] Donna Will Work Phone: [facility] Start: 06-19-2021 Non-patient / Non-visit Dr. Donna Will Work Phone: [facility] Medicine Start: 06-19-2021 Dr. Donna de souza Work Phone: [facility] Medicine Start: 06-15-2021 End: 06-15-[address] Donna Will [facility] Start: 06-15-2021 End: 06-15-2021 Dr. Donna Will [facility] Start: 05-29-2021 End: 05-29-[address] Donna Will Work Phone: [facility] Start: 05-29-2021 End: 05-29-2021 Dr. Donna Will Work Phone: [facility] Start: 05-29-2021 End: 05-29-[address] Donna Will Work Phone: [facility] Internal Medicine Start: 05-29-2021 End: 05-29-2021 Dr. Donna Will Work Phone: [facility] Internal Medicine Start: 05-04-2021 End: 05-18-2021 Evaluation and management of inpatient Dr. Donna Will [facility] Start: 05-04-2021 End: 05-18-2021 Dr. Donna Will [facility] Start: 05-04-2021 Non-patient / Non-visit Dr. Donna Will Work Phone: [facility] Start: 05-04-2021 Dr. Donna Garcia hner Work Phone: [facility] Start: 05-04-2021 Non-patient / Non-visit Dr. Donna Will Work Phone: [facility] In[facility] Phys[facility] Start: 05-04-2021 Dr. Donna Garcia hner Work Phone: [facility] Start: 05-03-2021 Non-patient / Non-visit Dr. Donna Will Work Phone: [facility] Start: 05-03-2021 Dr. Donna Garcia hner Work Phone: [facility] In[facility] Physicians Start: 05-02-2021 Non-patient / Non-visit Dr. Donna Will Work Phone: [facility] Start: 05-02-2021 Dr. Donna Garcia hner [facility] Start: 05-02-2021 Non-patient / Non-visit Dr. Donna Will Work Phone: [facility] Start: 05-02-2021 Dr. Donna Garcia hner Work Phone: [facility] Start: 05-02-2021 Non-patient / Non-visit Dr. Donna Will Work Phone: [facility] Start: 05-02-2021 Dr. Donna Garcia hner Work Phone: [facility] Start: 05-01-2021 Non-patient / Non-visit Dr. Donna Will Work Phone: [facility] Start: 05-01-2021 Dr. Donna Garcia hner Work Phone: [facility] Start: 05-01-2021 Non-patient / Non-[facility] Start: 05-01-2021 Dr. Donna Garcia hner Work Phone: [facility] Start: 05-01-2021 Non-patient / Non-visit Dr. Donna Will Work Phone: [facility] In[facility] Phys[facility] Start: 05-01-2021 Dr. Donna Garcia hner Work Phone: [facility] Phys[facility] Start: 05-01-2021 Non-patient / Non-visit Dr. Donna Will Work Phone: [facility] Start: 05-01-2021 Dr. Donna Garcia hner Work Phone: [facility] Start: 04-30-2021 Non-patient / Non-visit Dr. Donna Will Work Phone: [facility] Phys[facility] Start: 04-30-2021 Dr. Donna Garcia hner Work Phone: [facility] Start: 04-29-2021 Non-patient / Non-visit Dr. Donna Will Work Phone: [facility] Start: 04-29-2021 End: 05-04-2021 Evaluation and management of inpatient Dr. Donna Will [facility] Start: 04-29-2021 End: 05-04-2021 Dr. Donna Will [facility] Start: 04-26-2021 End: 04-29-2021 Evaluation and management of inpatient Dr. Donna Will [facility] Start: 04-26-2021 Non-patient / Non-visit Dr. Donna Will Work Phone: [facility] Phys[facility] Start: 04-26-2021 Non-patient / Non-visit Dr. Donna Will Work Phone: [facility] Start: 04-26-2021 End: 04-30-2021 Dr. Donna Will [facility] Start: 04-25-2021 Non-patient / Non-visit Dr. Donna Will Work Phone: [facility] Start: 04-25-2021 Dr. Donna Garcia hner Work Phone: [facility] Start: 04-25-2021 Non-patient / Non-visit Dr. Donna Will Work Phone: [facility] Start: 04-25-2021 Dr. Donna Garcia hner Work Phone: [facility] Start: 04-24-2021 Non-patient / Non-visit Dr. Donna Will Work Phone: [facility] Start: 04-24-2021 Dr. Donna Garcia hner Work Phone: [facility] Start: 04-24-2021 Non-patient / Non-visit Dr. Donna Will Work Phone: [facility] Start: 04-24-2021 Dr. Donna Garcia hner Work Phone: [facility] Start: 04-23-2021 Non-patient / Non-visit Dr. Donna Will Work Phone: [facility] Start: 04-23-2021 Dr. Donna francor Work Phone: [facility] Start: 04-23-2021 Non-patient / Non-visit Dr. Donna Will Work Phone: [facility] Start: 04-23-2021 Dr. Donna Garcia hner Work Phone: [facility] Start: 04-22-2021 End: 04-26-2021 Evaluation and management of inpatient [facility] Start: 04-22-2021 End: 04-26-2021 Dr. Donna Will Work Phone: [facility] 3 Start: 04-21-2021 Non-patient / Non-visit Dr. Donna Will Work Phone: [facility] Start: 04-21-2021 Dr. Donna Garcia hner Work Phone: [facility] Start: 04-19-2021 End: 04-19-[address] Donna Will Work Phone: [facility] Medicine Start: 04-19-2021 End: 04-19-2021 Dr. Donna Will Work Phone: [facility] Start: 04-11-2021 Non-patient / Non-visit Dr. Donna Will Work Phone: [facility] Start: 04-11-2021 Dr. Donna Garcia hner Work Phone: [facility] Start: 04-10-2021 Non-patient / Non-visit Dr. Donna Will Work Phone: [facility] Start: 04-10-2021 Dr. Donna Garcia hner Work Phone: [facility] Start: 04-09-2021 Non-patient / Non-visit Dr. Donna Will Work Phone: [facility] Start: 04-09-2021 Dr. Donna Garcia hner Work Phone: [facility] Start: 04-09-2021 Non-patient / Non-visit Dr. Donna Will Work Phone: [facility] Start: 04-09-2021 Dr. Donna Garcia hner Work Phone: [facility] Start: 04-08-2021 End: 04-11-2021 Evaluation and management of inpatient [facility] Start: 04-08-2021 End: 04-11-2021 Dr. [facility] Start: 04-05-2021 End: 04-05-2021 Dr. Donna Will Work Phone: [facility] Start: 04-04-2021 End: 04-04-2021 Dr. Donna Will Work Phone: [facility] Internal Medicine Start: 04-04-2021 Dr. Donna Garcia hner Work Phone: [facility] Start: 03-28-2021 End: 03-28-2021 Dr. Donna Will Work Phone: [facility] Start: 03-25-2021 Dr. Donna Garcia hner Work Phone: [facility] Start: 03-23-2021 Dr. Donna Garcia hner Work Phone: [facility] Start: 03-22-2021 End: 03-25-2021 Dr. Donna Will Work Phone: [facility] Start: 03-14-2021 End: 03-14-2021 Dr. Donna Wlil Work Phone: [facility] Start: 02-05-2021 Dr. Donna Garcia hner Work Phone: [facility]Laboratory, [facility] Procedures Date Procedure Procedure Detail [...] Total iron binding capacity measurement Dr. Donna iWll MD Work Phone: Start: 04-08-2024 Anion gap [...] Work Phone: Start: 11-15-2022 Plain chest X-ray MANAGER [employer] DANNIELLE PIÑA Work Phone: Start: 07-29-2022 Measurement of occult blood in stool specimen using immunoassay [employer]NA[employer] DANNIELLE PIÑA Work Phone: Start: 07-09-2022 Computed tomography of abdomen and pelvis with contrast [employer]NA[employer] DANNIELLE PIÑA Work Phone: Start: 06-05-2022 Videoswallow MANAGER [employer]-C DANNIELLE PIÑA Work Phone: Start: 05-03-2022 Measurement of occult blood in stool specimen using immunoassay MANAGER [employer] DANNIELLE PIÑA Work Phone: Start: 03-22-2022 [employer]wallow MANAGER [employer] DANNIELLE PIÑA Work Phone: Start: 02-15-2022 Plain chest X-ray MANAGER [employer] DANNIELLE PIÑA Work Phone: Start: 02-14-2022 CT angiography of chest with contrast [employer]NAGER [employer] DANNIELLE PIÑA Work Phone: Start: 02-14-2022 Plain chest X-ray MANAGER [employer] DANNIELLE PIÑA Work Phone: Start: 02-14-2022 CT of head without contrast MANAGER [employer] DANNIELLE S IMMONS Work Phone: Start: 12-10-2021 [...] Culture Dr. Donna Will Work Phone: Start: 04-08-2021 Dr. Donna Will [...] Phone: Bacteria identified in Blood by Culture [employer]NAGER [employer] DANNIELLE PIÑA Work Phone: Bacteria identified in Urine by Culture [employer]NAGER [employer] DANNIELLE PIÑA Work Phone: H/O: surgery Dr. Donna pollock Work Phone: Investigation of tra nsfusion reaction Dr. Donna Will Work Phone: Investigation of tra nsfusion reaction [employer]NA[employer] DANNIELLE PIÑA Work Phone: Legionella pneumophi la antigen assay Dr. Donna Will Work Phone: Legionella pneumophi la antigen assay MANAGER [employer] DANNIELLE PIÑA Work Phone: Measurement of occul t blood in stool specimen using immunoassay Dr. Donna Will Work Phone: Measurement of occul t blood in stool specimen using immunoassay [employer]NA[employer] DANNIELLE PIÑA Work Phone: Respiratory microbial culture Dr. oDnna Will Work Phone: Respiratory microbial culture MANAGER [employer] DANNIELLE PIÑA Work Phone: Respiratory Panel (PCR) Dr. Donna Will Work Phone: Respiratory Panel (PCR) [employer]NA[employer] DANNIELLE PIÑA Work Phone: SARS-CoV-2 & FLU Antigen (Rapid) Dr. Donna Will Work Phone: Streptococcus pneumoniae Antigen (M Dr. Donna Will Work Phone: Urine culture MANAGER [employer] DANNIELLE SIM MONS Work Phone: Urine culture MANAGER [employer] DANNIELLE SIM MONS Work Phone: MANAGER [employer] DANNIELLE SIMM ONS Work Phone: MANAGER [employer] DANNIELLE SIMM ONS Work Phone: MANAGER [employer] DANNIELLE SIMM ONS Work Phone: MANAGER [employer] DANNIELLE SIMM ONS Work Phone: MANAGER [employer] DANNIELLE SIMM ONS Work Phone: MANAGER [employer] DANNIELLE SIMM ONS Work Phone: Plan of Treatment Date Care Activity Detail Author Start: 07-20-2024 [facility] Start: 07-20-2024 Patient referral [facility] Work Phone: Start: 07-08-2024 [facility] Start: 07-08-2024 Blood culture [facility] Start: 07-08-2024 End: 07-08-2024 [facility] Start: 07-01-2024 Measurement of respiratory function [facility] Start: 06-25-2024 Patient discharge [facility] Start: 06-24-2024 Referral to service [facility] Start: 06-22-2024 Consultation [facility] Start: 06-21-2024 Oxygen therapy [facility] Start: 06-21-2024 [facility] Start: 06-20-2024 Dual pressure spontaneous ventilation support [facility] Start: 06-20-2024 Application of intermittent pneumatic compression device [facility] Start: 06-20-2024 Following clinical pathway protocol [facility] Start: 06-20-2024 Continuous pulse oximetry [facility] Start: 06-20-2024 Assessment of risk of venous thromboembolism [facility] Start: 06-20-2024 Care regimes management [facility] Start: 06-20-2024 Catheterization of vein [facility] Start: 06-20-2024 Elevation of head of bed [facility] Start: 06-20-2024 Inhalation therapy procedure [facility] Start: 06-20-2024 Insertion of catheter into peripheral vein [facility] Start: 06-20-2024 Measuring intake and output [facility] Start: 06-20-2024 Notification of physician [facility] Start: 06-20-2024 Patient education [facility] Start: 06-20-2024 Providing care according to standard [facility] Start: 06-20-2024 Referral to occupational therapist [facility] Start: 06-20-2024 Referral to service [facility] Start: 06-20-2024 Tobacco use cessation education [facility] Start: 06-20-2024 Vital signs measurements [facility] Start: 06-20-2024 End: 06-20-2024 [facility] Start: 06-20-2024 Admission procedure [facility] Start: 04-08-2024 Patient discharge [facility] Start: 04-07-2024 Oxygen therapy [facility] Start: 04-06-2024 End: 04-07-2024 [facility] Start: 04-06-2024 Referral to gastroenterology service [facility] Start: 04-06-2024 Administration of blood product [facility] Start: 04-06-2024 Care planning and problem solving actions [facility] Start: 04-06-2024 Inhalation therapy procedure [facility] Start: 04-05-2024 Following clinical pathway protocol [facility] Start: 04-05-2024 Transfusion of blood product [facility] Start: 04-05-2024 Application of intermittent pneumatic compression device [facility] Start: 04-05-2024 Cardiac monitoring [facility] Start: 04-05-2024 Care regimes management [facility] Start: 04-05-2024 Catheterization of vein [facility] Start: 04-05-2024 Consultation [facility] Start: 04-05-2024 Continuous pulse oximetry [facility] Start: 04-05-2024 Notification of physician [facility] Start: 04-05-2024 Vital signs measurements [facility] Start: 04-05-2024 End: 04-05-2024 [facility] Start: 04-05-2024 Admission procedure [facility] Start: 06-05-2023 Diagnostic bone marrow biopsies & aspirations [facility] Start: 06-05-2023 Procedure [facility] Start: 06-05-2023 Following clinical pathway protocol [facility] Start: 06-05-2023 Catheterization of vein [facility] Start: 06-05-2023 Oxygen therapy [facility] Start: 06-05-2023 Patient discharge [facility] Start: 06-05-2023 Vital signs measurements [facility] Start: 05-09-2023 Administration of blood product [facility] Start: 05-09-2023 [facility] Start: 03-21-2023 Referral to service [facility] Start: 03-21-2023 Patient discharge [facility] Start: 03-19-2023 Care planning and problem solving actions [facility] Start: 03-17-2023 [facility] Start: 03-17-2023 [facility] Start: 03-17-2023 Vital signs measurements [facility] Start: 03-17-2023 Methicillin resistant Staphylococcus aureus screening test [facility] Start: 03-17-2023 End: 03-18-2023 [facility] Start: 03-16-2023 [facility] Start: 03-16-2023 Speech therapy assessment [facility] Start: 03-16-2023 Following clinical pathway protocol [facility] Start: 03-16-2023 Lab findings surveillance [facility] Start: 03-16-2023 [facility] Start: 03-16-2023 Application of intermittent pneumatic compression device [facility] Start: 03-16-2023 Hospital admission, emergency, from emergency room, medical nature [facility] Start: 03-16-2023 Following clinical pathway protocol [facility] Start: 03-16-2023 Assessment of risk of venous thromboembolism [facility] Start: 03-16-2023 Care regimes management [facility] Start: 03-16-2023 Catheterization of vein [facility] Start: 03-16-2023 Consultation [facility] Start: 03-16-2023 Continuous pulse oximetry [facility] Start: 03-16-2023 Documentation procedure [facility] Start: 03-16-2023 Incentive spirometry [facility] Start: 03-16-2023 Inhalation therapy procedure [facility] Start: 03-16-2023 Insertion of catheter into peripheral vein [facility] Start: 03-16-2023 Measuring intake and output [facility] Start: 03-16-2023 Microbial culture, body fluid [facility] Start: 03-16-2023 Microscopic observation [Identifier] in Body fluid by Cyto stain [facility] Start: 03-16-2023 Notification of physician [facility] Start: 03-16-2023 Oxygen therapy [facility] Start: 03-16-2023 Patient referral to dietitian [facility] Start: 03-16-2023 Providing care according to standard [facility] Start: 03-16-2023 Referral to gastroenterology service [facility] Start: 03-16-2023 Referral to occupational therapist [facility] Start: 03-16-2023 Referral to service [facility] Start: 03-16-2023 Removal of urinary catheter [facility] Start: 03-16-2023 Respiratory therapy [facility] Start: 03-16-2023 Vital signs measurements [facility] Start: 03-16-2023 End: 03-16-2023 [facility] Start: 03-16-2023 Ultrasonic guidance for thoracentesis [facility] Start: 03-16-2023 Cell count and Differential panel - Body fluid [facility] Start: 03-16-2023 Glucose measurement, body fluid [facility] Start: 03-16-2023 Verification routine [facility] Start: 03-16-2023 Admission procedure [facility] Start: 03-16-2023 End: 03-16-2023 Administration of blood product [facility] Start: 03-16-2023 End: 03-16-2023 Blood culture [facility] Start: 03-16-2023 End: 03-17-2023 [facility] Start: 03-16-2023 Leukocyte reduced red blood cells [facility] Start: 03-06-2023 Patient discharge [facility] Start: 03-04-2023 Care regimes management [facility] Start: 03-04-2023 Notification of physician [facility] Start: 03-04-2023 [facility] Start: 03-03-2023 Admission procedure [facility] Start: 03-01-2023 Referral to service [facility] Start: 03-01-2023 Administration of blood product [facility] Start: 02-28-2023 Application of intermittent pneumatic compression device [facility] Start: 02-28-2023 Administration of blood product [facility] Start: 02-28-2023 Assessment of risk of venous thromboembolism [facility] Start: 02-28-2023 Care regimes management [facility] Start: 02-28-2023 Insertion of catheter into peripheral vein [facility] Start: 02-28-2023 Measuring intake and output [facility] Start: 02-28-2023 Notification of physician [facility] Start: 02-28-2023 Oxygen therapy [facility] Start: 02-28-2023 Physiotherapy of chest [facility] Start: 02-28-2023 Providing care according to standard [facility] Start: 02-28-2023 Provision of activity privileges [facility] Start: 02-28-2023 Referral to occupational therapist [facility] Start: 02-28-2023 Referral to service [facility] Start: 02-28-2023 Following clinical pathway protocol [facility] Start: 02-28-2023 Verification routine [facility] Start: 02-28-2023 Admission procedure [facility] Start: 02-28-2023 Hospital admission, emergency, from emergency room, medical nature [facility] Start: 02-28-2023 Leukocyte reduced red blood cells [facility] Start: 02-28-2023 End: 02-28-2023 [facility] Start: 02-28-2023 End: 02-28-2023 Administration of blood product [facility] Start: 02-28-2023 [facility] Start: 02-28-2023 Inhalation therapy procedure [facility] Start: 11-18-2022 Blood chemistry [facility] Start: 11-17-2022 Patient discharge [facility] Start: 11-17-2022 End: 11-17-2022 [facility] Start: 11-17-2022 Application of elastic bandage [facility] Start: 11-16-2022 End: 11-16-2022 Administration of blood product [facility] Start: 11-16-2022 Referral to service [facility] Start: 11-16-2022 Blood chemistry [facility] Start: 11-16-2022 Complete blood count [facility] Start: 11-15-2022 Care regimes management [facility] Start: 11-15-2022 Notification of physician [facility] Start: 11-15-2022 Following clinical pathway protocol [facility] Start: 11-15-2022 Ambulation without limitation [facility] Start: 11-15-2022 Assessment of risk of venous thromboembolism [facility] Start: 11-15-2022 Insertion of catheter into peripheral vein [facility] Start: 11-15-2022 Measuring intake and output [facility] Start: 11-15-2022 Oxygen therapy [facility] Start: 11-15-2022 Providing care according to standard [facility] Start: 11-15-2022 Referral to occupational therapist [facility] Start: 11-15-2022 Referral to service [facility] Start: 11-15-2022 End: 11-15-2022 [facility] Start: 11-15-2022 Troponin I measurement [facility] Start: 11-15-2022 End: 11-15-2022 Verification routine [facility] Start: 11-15-2022 Admission procedure [facility] Start: 10-01-2022 Administration of blood product [facility] Start: 10-01-2022 [facility] Start: 09-06-2022 Administration of blood product [facility] Start: 09-06-2022 [facility] Start: 04-29-2022 Patient referral [facility] Work Phone: Start: 02-16-2022 Patient discharge [facility] Start: 02-15-2022 Referral to service [facility] Start: 02-15-2022 Consultation [facility] Start: 02-15-2022 Methicillin resistant Staphylococcus aureus screening test [facility] Start: 02-15-2022 Continuous positive airway pressure ventilation treatment [facility] Start: 02-14-2022 Following clinical pathway protocol [facility] Start: 02-14-2022 Assessment of risk of venous thromboembolism [facility] Start: 02-14-2022 Elevation of head of bed [facility] Start: 02-14-2022 Incentive spirometry [facility] Start: 02-14-2022 Inhalation therapy procedure [facility] Start: 02-14-2022 Insertion of catheter into peripheral vein [facility] Start: 02-14-2022 Measuring intake and output [facility] Start: 02-14-2022 Oxygen therapy [facility] Start: 02-14-2022 Patient education [facility] Start: 02-14-2022 Providing care according to standard [facility] Start: 02-14-2022 Provision of activity privileges [facility] Start: 02-14-2022 Referral to occupational therapist [facility] Start: 02-14-2022 Referral to service [facility] Start: 02-14-2022 [facility] Start: 02-14-2022 Verification routine [facility] Work Phone: Start: 02-14-2022 Legionella pneumophila Ag [Presence] in Urine [facility] Work Phone: Start: 02-14-2022 Streptococcus pneumoniae antigen assay [facility] Work Phone: Start: 02-14-2022 [facility] Start: 02-14-2022 Admission procedure [facility] Start: 02-14-2022 [facility] Work Phone: Start: 02-14-2022 End: 02-14-2022 Blood culture [facility] Work Phone: Start: 02-14-2022 End: 02-14-2022 [facility] Work Phone: Start: 12-11-2021 Referral to service [facility] Start: 12-11-2021 Patient discharge [facility] Start: 12-10-2021 Catheterization of vein [facility] Start: 12-10-2021 Administration of blood product [facility] Start: 12-10-2021 [facility] Start: 12-09-2021 Respiratory secretion precautions [facility] Start: 12-09-2021 Referral to gastroenterology service [facility] Start: 12-08-2021 Application of intermittent pneumatic compression device [facility] Start: 12-08-2021 Assessment of risk of venous thromboembolism [facility] Start: 12-08-2021 Care regimes management [facility] Start: 12-08-2021 Elevation of head of bed [facility] Start: 12-08-2021 Incentive spirometry [facility] Start: 12-08-2021 Inhalation therapy procedure [facility] Start: 12-08-2021 Insertion of catheter into peripheral vein [facility] Start: 12-08-2021 Introduction of urinary catheter [facility] Start: 12-08-2021 Measuring intake and output [facility] Start: 12-08-2021 Oxygen therapy [facility] Start: 12-08-2021 Patient education [facility] Start: 12-08-2021 Providing care according to standard [facility] Start: 12-08-2021 Provision of activity privileges [facility] Start: 12-08-2021 Referral to service [facility] Start: 12-08-2021 [facility] Start: 12-08-2021 Following clinical pathway protocol [facility] Start: 12-08-2021 Streptococcus pneumoniae antigen assay [facility] Work Phone: Start: 12-08-2021 [facility] Start: 12-08-2021 Verification routine [facility] Work Phone: Start: 12-08-2021 Admission procedure [facility] Start: 12-08-2021 Blood culture [facility] Work Phone: Start: 12-08-2021 [facility] Work Phone: Start: 12-08-2021 Patient referral to dietitian [facility] Start: 10-26-2021 Patient discharge [facility] Work Phone: Start: 10-25-2021 Incentive spirometry [facility] Work Phone: Start: 10-24-2021 Catheterization of vein [facility] Work Phone: Start: 10-24-2021 Transfusion of blood product [facility] Work Phone: Start: 10-24-2021 Referral to service [facility] Work Phone: Start: 10-24-2021 [facility] Work Phone: Start: 10-24-2021 Administration of blood product [facility] Work Phone: Start: 10-24-2021 Leukocyte reduced red blood cells [facility] Work Phone: Start: 10-24-2021 End: 10-25-2021 [facility] Work Phone: Start: 10-24-2021 Referral to gastroenterology service [facility] Work Phone: Start: 10-24-2021 Administration of blood product [facility] Work Phone: Start: 10-23-2021 End: 10-24-2021 [facility] Work Phone: Start: 10-23-2021 Respiratory secretion precautions [facility] Work Phone: Start: 10-23-2021 Oxygen therapy [facility] Work Phone: Start: 10-23-2021 Care regimes management [facility] Work Phone: Start: 10-23-2021 Notification of physician [facility] Work Phone: Start: 10-23-2021 Ambulation without limitation [facility] Work Phone: Start: 10-23-2021 Assessment of risk of venous thromboembolism [facility] Work Phone: Start: 10-23-2021 Catheterization of vein [facility] Work Phone: Start: 10-23-2021 Insertion of catheter into peripheral vein [facility] Work Phone: Start: 10-23-2021 Providing care according to standard [facility] Work Phone: Start: 10-23-2021 Following clinical pathway protocol [facility] Work Phone: Start: 10-23-2021 Admission procedure [facility] Work Phone: Start: 10-23-2021 End: 10-23-2021 Blood culture [facility] Work Phone: Start: 10-23-2021 Inhalation therapy procedure [facility] Work Phone: Start: 10-09-2021 Patient referral [facility] Work Phone: Start: 10-02-2021 Patient discharge [facility] Work Phone: Start: 10-02-2021 Referral to service [facility] Work Phone: Start: 10-02-2021 [facility] Work Phone: Start: 10-02-2021 Application of intermittent pneumatic compression device [facility] Work Phone: Start: 10-01-2021 Following clinical pathway protocol [facility] Work Phone: Start: 10-01-2021 Aspiration precautions [facility] Work Phone: Start: 10-01-2021 Assessment of risk of venous thromboembolism [facility] Work Phone: Start: 10-01-2021 Bacteria identified in Sputum by Culture [facility] Work Phone: Start: 10-01-2021 Bacterial nucleic acid assay [facility] Work Phone: Start: 10-01-2021 Care regimes management [facility] Work Phone: Start: 10-01-2021 Elevation of head of bed [facility] Work Phone: Start: 10-01-2021 Fall prevention [facility] Work Phone: Start: 10-01-2021 Incentive spirometry [facility] Work Phone: Start: 10-01-2021 Inhalation therapy procedure [facility] Work Phone: Start: 10-01-2021 Insertion of catheter into peripheral vein [facility] Work Phone: Start: 10-01-2021 Introduction of urinary catheter [facility] Work Phone: Start: 10-01-2021 Measuring intake and output [facility] Work Phone: Start: 10-01-2021 Methicillin resistant Staphylococcus aureus screening test [facility] Work Phone: Start: 10-01-2021 Oxygen therapy [facility] Work Phone: Start: 10-01-2021 Patient education [facility] Work Phone: Start: 10-01-2021 Providing care according to standard [facility] Work Phone: Start: 10-01-2021 Provision of activity privileges [facility] Work Phone: Start: 10-01-2021 Referral to occupational therapist [facility] Work Phone: Start: 10-01-2021 Referral to service [facility] Work Phone: Start: 10-01-2021 Taking nasal swab [facility] Work Phone: Start: 10-01-2021 [facility] Work Phone: Start: 10-01-2021 Viral nucleic acid assay [facility] Work Phone: Start: 10-01-2021 Verification routine [facility] Work Phone: Start: 10-01-2021 Streptococcus pneumoniae antigen assay [facility] Work Phone: Start: 10-01-2021 End: 10-01-2021 [facility] Work Phone: Start: 10-01-2021 Admission procedure [facility] Work Phone: Start: 10-01-2021 Blood culture [facility] Work Phone: Start: 10-01-2021 Blood culture [facility] Work Phone: Start: 08-07-2021 Patient discharge [facility] Work Phone: Start: 08-06-2021 Following clinical pathway protocol [facility] Work Phone: Start: 08-06-2021 Ambulation without limitation [facility] Work Phone: Start: 08-06-2021 Assessment of risk of venous thromboembolism [facility] Work Phone: Start: 08-06-2021 Care regimes management [facility] Work Phone: Start: 08-06-2021 Elevation of head of bed [facility] Work Phone: Start: 08-06-2021 Inhalation therapy procedure [facility] Work Phone: Start: 08-06-2021 Insertion of catheter into peripheral vein [facility] Work Phone: Start: 08-06-2021 Oxygen therapy [facility] Work Phone: Start: 08-06-2021 Patient education [facility] Work Phone: Start: 08-06-2021 Providing care according to standard [facility] Work Phone: Start: 08-06-2021 Referral to occupational therapist [facility] Work Phone: Start: 08-06-2021 Referral to service [facility] Work Phone: Start: 08-06-2021 End: 08-06-2021 [facility] Work Phone: Start: 08-06-2021 Admission procedure [facility] Work Phone: Start: 08-06-2021 Bacteria identified in Blood by Culture Blood Culture [facility] Work Phone: Start: 08-06-2021 Patient referral to dietitian [facility] Work Phone: Start: 05-20-2021 Development of care plan [facility] Work Phone: Start: 05-18-2021 Patient discharge [facility] Work Phone: Start: 05-15-2021 Referral to service [facility] Work Phone: Start: 05-14-2021 [facility] Work Phone: Start: 05-12-2021 Neurological assessment [facility] Work Phone: Start: 05-11-2021 Neurological assessment [facility] Work Phone: Start: 05-08-2021 Referral to service [facility] Work Phone: Start: 05-07-2021 Oxygen therapy [facility] Work Phone: Start: 05-05-2021 Developing a treatment plan [facility] Work Phone: Start: 05-05-2021 Development of care plan [facility] Work Phone: Start: 05-05-2021 Following clinical pathway protocol [facility] Work Phone: Start: 05-05-2021 Patient referral to dietitian [facility] Work Phone: Start: 05-04-2021 Following clinical pathway protocol [facility] Work Phone: Start: 05-04-2021 Speech therapy assessment [facility] Work Phone: Start: 05-04-2021 Admission procedure [facility] Work Phone: Start: 05-04-2021 Measuring intake and output [facility] Work Phone: Start: 05-04-2021 Patient referral to dietitian [facility] Work Phone: Start: 05-04-2021 Referral to occupational therapist [facility] Work Phone: Start: 05-04-2021 Referral to service [facility] Work Phone: Start: 05-04-2021 Vital signs measurements [facility] Work Phone: Start: 05-04-2021 [facility] Work Phone: Start: 05-04-2021 Application of antithromboembolic stockings [facility] Work Phone: Alanine aminotransfe rase [Enzymatic activity/volume] in Serum or Plasma [facility] Work Phone: Alanine aminotransfe rase [Enzymatic activity/volume] in Serum or Plasma [facility] Albumin [Mass/volume ] in Serum or Plasma [facility] Work Phone: Albumin [Mass/volume ] in Serum or Plasma [facility] Alkaline phosphatase [Enzymatic activity/volume] in Serum or Plasma [facility] Work Phone: Alkaline phosphatase [Enzymatic activity/volume] in Serum or Plasma [facility] Anion gap measurement [facility] Work Phone: Anion gap measurement [facility] Anion gap measurement [facility] Aspartate aminotrans ferase [Enzymatic activity/volume] in Serum or Plasma [facility] Work Phone: Aspartate aminotrans ferase [Enzymatic activity/volume] in Serum or Plasma [facility] Bacteria identified in Blood by Culture Blood Culture [facility] Work Phone: Bacteria identified in Sputum by Culture [facility] Bacteria identified in Sputum by Culture [facility] Bacteria identified in Sputum by Respiratory culture [facility] Work Phone: Bacteria identified in Urine by Culture Urine Culture [facility] Work Phone: Bacteria identified in Urine by Culture [facility] Basic metabolic 2008 panel with ionized calcium - Serum or Plasma [facility] Bilirubin, total measurement [facility] Work Phone: Bilirubin, total measurement [facility] Blood culture [facility] Work Phone: Bone marrow biopsy, needle or trocar [facility] BUN/Creatinine ratio [facility] Work Phone: BUN/Creatinine ratio [facility] BUN/Creatinine ratio [facility] Calcium [Mass/volume ] in Serum or Plasma [facility] Work Phone: Calcium [Mass/volume ] in Serum or Plasma [facility] Calcium [Mass/volume ] in Serum or Plasma [facility] Carbon dioxide, tota l [Moles/volume] in Serum or Plasma [facility] Work Phone: Carbon dioxide, tota l [Moles/volume] in Serum or Plasma [facility] Carbon dioxide, tota l [Moles/volume] in Serum or Plasma [facility] CBC W Auto Different ial panel - Blood [facility] Work Phone: CBC W Auto Different ial panel - Blood [facility] CBC W Auto Different ial panel - Blood [facility] CBC W Auto Different ial panel - Blood [facility] CBC W Auto Different ial panel - Blood [facility] CBC W Auto Different ial panel - Blood [facility] CBC W Auto Different ial panel - Blood [facility] CBC W Auto Different ial panel - Blood [facility] CBC W Auto Different ial panel - Blood [facility] CBC W Auto Different ial panel - Blood [facility] Chloride [Moles/volu me] in Serum or Plasma [facility] Work Phone: Chloride [Moles/volu me] in Serum or Plasma [facility] Chloride [Moles/volu me] in Serum or Plasma [facility] Cobalamin (Vitamin B 12) [Mass/volume] in Serum or Plasma [facility] Comprehensive metabo lic 1999 panel - Serum or Plasma [facility] Comprehensive metabo lic 1999 panel - Serum or Plasma [facility] Comprehensive metabo lic 1999 panel - Serum or Plasma [facility] Creatinine [Moles/vo lume] in Serum or Plasma [facility] Work Phone: Creatinine [Moles/vo lume] in Serum or Plasma [facility] Creatinine [Moles/vo lume] in Serum or Plasma [facility] CT Abdomen and Pelvi s W contrast IV [facility] CT Chest [facility] CT Chest [facility] CT Chest [facility] Erythrocyte mean cor puscular volume determination [facility] Exercise tolerance test [facility] Ferritin [Mass/volum e] in Serum or Plasma [facility] Work Phone: Ferritin [Mass/volum e] in Serum or Plasma [facility] Ferritin [Mass/volum e] in Serum or Plasma [facility] Ferritin [Mass/volum e] in Serum or Plasma [facility] Ferritin [Mass/volum e] in Serum or Plasma [facility] Ferritin [Mass/volum e] in Serum or Plasma [facility] Ferritin [Mass/volum e] in Serum or Plasma [facility] Ferritin [Mass/volum e] in Serum or Plasma [facility] Folate [Mass/volume] in Serum or Plasma [facility] Folate [Mass/volume] in Serum or Plasma [facility] Folate [Moles/volume ] in Serum or Plasma [facility] Glucose [Mass/volume ] in Serum or Plasma [facility] Work Phone: Glucose [Mass/volume ] in Serum or Plasma [facility] Glucose [Mass/volume ] in Serum or Plasma [facility] Haptoglobin [Mass/vo lume] in Serum or Plasma [facility] Hematocrit [Volume F raction] of Blood [facility] Work Phone: Hematocrit [Volume F raction] of Blood [facility] Hematocrit [Volume F raction] of Blood [facility] Hematocrit [Volume F raction] of Blood [facility] Hematocrit [Volume F raction] of Blood [facility] Hematocrit [Volume F raction] of Blood [facility] Hemoglobin [Mass/vol ume] in Blood [facility] Work Phone: Hemoglobin [Mass/vol ume] in Blood [facility] Hemoglobin [Mass/vol ume] in Blood [facility] Hemoglobin [Mass/vol ume] in Blood [facility] Hemoglobin [Mass/vol ume] in Blood [facility] Hemoglobin [Mass/vol ume] in Blood [facility] Hemoglobin [Mass/vol ume] in Blood [facility] Hemoglobin A1c/Hemoglobin.total in Blood [facility] Work Phone: Iron and Iron bindin g capacity panel - Serum or Plasma [facility] Work Phone: Iron and Iron bindin g capacity panel - Serum or Plasma [facility] Iron and Iron bindin g capacity panel - Serum or Plasma [facility] Iron and Iron bindin g capacity panel - Serum or Plasma [facility] Iron and Iron bindin g capacity panel - Serum or Plasma [facility] Iron and Iron bindin g capacity panel - Serum or Plasma [facility] Iron and Iron bindin g capacity panel - Serum or Plasma [facility] Iron and Iron bindin g capacity panel - Serum or Plasma [facility] Iron and Iron bindin g capacity panel - Serum or Plasma [facility] Lactate dehydrogenas e [Enzymatic activity/volume] in Body fluid by Pyruvate to lactate reaction [facility] Lactate dehydrogenas e measurement [facility] Work Phone: Lactate dehydrogenas e measurement [facility] Lactate dehydrogenas e measurement [facility] Lactate dehydrogenas e measurement [facility] Lactate dehydrogenas e measurement [facility] Lactate dehydrogenas e measurement [facility] Lactate dehydrogenas e measurement [facility] Lactate dehydrogenas e measurement [facility] Legionella pneumophi la Ag [Presence] in Urine [facility] Work Phone: Leukocytes [#/volume ] in Blood [facility] Work Phone: Leukocytes [#/volume ] in Blood [facility] Leukocytes [#/volume ] in Blood [facility] Lipid 1996 panel - S bev or Plasma [facility] Magnesium [Mass/volu me] in Serum or Plasma [facility] Magnesium measurement [facility] Mean corpuscular hem oglobin concentration determination [facility] Work Phone: Mean corpuscular hem oglobin concentration determination [facility] Mean corpuscular hem oglobin concentration determination [facility] Mean corpuscular hem oglobin determination [facility] Work Phone: Mean corpuscular hem oglobin determination [facility] Mean corpuscular hem oglobin determination [facility] Measurement of occul t blood in stool specimen using immunoassay [facility] Measurement of renal function [facility] Work Phone: Measurement of renal function [facility] Measurement of renal function [facility] Measurement of respi ratory function [facility] Measurement of respi ratory function [facility] Microscopic observat ion [Identifier] in Unspecified specimen by Gram stain Gram Stain [facility] Work Phone: Neutrophil count [facility] Work Phone: Neutrophil count [facility] Neutrophil percent differential count [facility] Work Phone: Neutrophil percent differential count [facility] Patient Education [facility] Work Phone: Patient referral [facility] Work Phone: Platelets [#/volume] in Blood [facility] Work Phone: Platelets [#/volume] in Blood [facility] Platelets [#/volume] in Blood [facility] Potassium [Moles/vol ume] in Serum or Plasma [facility] Work Phone: Potassium [Moles/vol ume] in Serum or Plasma [facility] Potassium [Moles/vol ume] in Serum or Plasma [facility] Prostate specific an tigen measurement [facility] Protein [Mass/volume ] in Body fluid [facility] Red blood cell count [facility] Work Phone: Red blood cell count [facility] Red blood cell count [facility] Red cell distributio n width determination [facility] Work Phone: Red cell distributio n width determination [facility] Red cell distributio n width determination [facility] Respiratory Culture Respiratory Culture [facility] Work Phone: Respiratory microbial culture Respiratory Culture [facility] Work Phone: Respiratory pathogen s DNA and RNA 12b panel - Unspecified specimen by JUSTIN with probe detection [facility] Work Phone: Reticulocyte count [facility] Work Phone: Reticulocyte count [facility] Serum inorganic phos phate measurement [facility] Sodium [Moles/volume ] in Serum or Plasma [facility] Work Phone: Sodium [Moles/volume ] in Serum or Plasma [facility] Sodium [Moles/volume ] in Serum or Plasma [facility] Streptococcus pneumo niae antigen assay [facility] Work Phone: Thyroid stimulating hormone measurement [facility] Total protein measurement [facility] Work Phone: Total protein measurement [facility] Urea nitrogen [Mass/ volume] in Serum or Plasma [facility] Work Phone: Urea nitrogen [Mass/ volume] in Serum or Plasma [facility] Urea nitrogen [Mass/ volume] in Serum or Plasma [facility] US Heart limited [facility] Vitamin B12 measurement [facility] Vitamin B12 measurement [facility] Vitamin B12 measurement [facility] Vitamin D, 25-hydrox y measurement [facility] XR Chest PA and Lateral [facility] [place] [facility] [place] Immunization Date Immunization Notes Care Provider Judson cummings 03-01-2023 Influenza High-Dose Quadrivalent Dr. Donna Will Work Phone: [facility] 01-08-2022 influenza, injectabl e, quadrivalent, preservative free [employer] DANNIELLE PIÑA Work Phone: [facility] 01-08-2022 influenza, seasonal, injectable [employer] DANNIELLE PIÑA Work Phone: [facility] 05-09-2021 pneumococcal conjuga te vaccine, [address] Donna Will Work Phone: [facility] 12-22-2020 Covid (Pfizer) Dr. Donna mckeon Work Phone: [facility] 11-24-[address] Donna Will Work Phone: [facility] 05-19-2020 Covid (Pfizer) Dr. Donna mckeon Work Phone: [facility] 04-27-2020 Covid (Pfizer) Dr. Donna mckeon Work Phone: [facility] 11-25-[address] Page Will Work Phone: [facility] Work Phone: 11-25-2011 pneumococcal vaccine , unspecified formulation Dr. Donna Will Work Phone: [facility] Payers Date Payer Category Payer Medicare [id number] 2021 Self-pay [id number] Medicare [id number] Unknown [id number] 2.16.8 40.1.749372.3.579.2.462 Unknown [id number] 2.16.8 40.1.894994.3.579.2.462 Unknown [id number] 2.16.8 40.1.307773.3.579.2.462 Unknown [id number] 2.16.8 40.1.326411.3.579.2.462 Unknown [id number] 2.16.8 40.1.407031.3.579.2.462 Unknown [id number] 2.16.8 40.1.958260.3.579.2.462 Unknown [id number] 2.16.8 40.1.224490.3.579.2.462 Unknown [id number] 2.16.8 40.1.585917.3.579.2.462 Unknown [id number] 2.16.8 40.1.626065.3.579.2.462 Unknown [id number] 2.16.8 40.1.834949.3.579.2.462 Unknown [id number] 2.16.8 40.1.371727.3.579.2.462 Unknown [id number] 2.16.8 40.1.145772.3.579.2.462 Unknown [id number] 2.16.8 40.1.210129.3.579.2.462 Unknown [id number] 2.16.8 40.1.218898.3.579.2.462 Unknown [id number] 2.16.8 40.1.382285.3.579.2.462 Unknown [id number] 2.16.8 40.1.285096.3.579.2.462 Unknown [id number] 2.16.8 40.1.186570.3.579.2.462 Unknown [id number] 2.16.8 40.1.629329.3.579.2.462 Unknown [id number] 2.16.8 40.1.523968.3.579.2.462 Unknown [id number] 2.16.8 40.1.438602.3.579.2.462 Unknown [id number] 2.16.8 40.1.282781.3.579.2.462 Unknown [id number] 2.16.8 40.1.062702.3.579.2.462 Unknown [id number] 2.16.8 40.1.069432.3.579.2.462 Unknown [id number] 2.16.8 40.1.590720.3.579.2.462 Unknown [id number] 2.16.8 40.1.210055.3.579.2.462 Unknown [id number] 2.16.8 40.1.307409.3.579.2.462 Unknown [id number] 2.16.8 40.1.402603.3.579.2.462 Unknown [id number] 2.16.8 40.1.235550.3.579.2.462 Unknown [id number] 2.16.8 40.1.951261.3.579.2.462 Unknown [id number] 2.16.8 40.1.002270.3.579.2.462 Unknown [id number] 2.16.8 40.1.072605.3.579.2.462 Unknown [id number] 2.16.8 40.1.361524.3.579.2.462 Unknown [id number] 2.16.8 40.1.909704.3.579.2.462 Unknown [id number] 2.16.8 40.1.561398.3.579.2.462 Unknown [id number] 2.16.8 40.1.630328.3.579.2.462 Unknown [id number] 2.16.8 40.1.499599.3.579.2.462 Unknown [id number] 2.16.8 40.1.609803.3.579.2.462 Unknown [id number] 2.16.8 40.1.825210.3.579.2.462 Unknown [id number] 2.16.8 40.1.660627.3.579.2.462 Unknown [id number] 2.16.8 40.1.424067.3.579.2.462 Unknown [id number] 2.16.8 40.1.194477.3.579.2.462 Unknown [id number] 2.16.8 40.1.686541.3.579.2.462 Unknown [id number] 2.16.8 40.1.171113.3.579.2.462 Unknown [id number] 2.16.8 40.1.688932.3.579.2.462 Unknown [id number] 2.16.8 40.1.680255.3.579.2.462 Unknown [id number] 2.16.8 40.1.478949.3.579.2.462 Unknown [id number] 2.16.8 40.1.319251.3.579.2.462 Unknown [id number] 2.16.8 40.1.768596.3.579.2.462 Unknown [id number] 2.16.8 40.1.701675.3.579.2.462 Unknown [id number] 2.16.8 40.1.776723.3.579.2.462 Unknown [id number] 2.16.8 40.1.281392.3.579.2.462 Unknown [id number] 2.16.8 40.1.108177.3.579.2.462 Unknown [id number] 2.16.8 40.1.219435.3.579.2.462 Unknown [id number] 2.16.8 40.1.590843.3.579.2.462 Unknown [id number] 2.16.8 40.1.094548.3.579.2.462 Unknown [id number] 2.16.8 40.1.417288.3.579.2.462 Unknown [id number] 2.16.8 40.1.627334.3.579.2.462 Unknown [id number] 2.16.8 40.1.565532.3.579.2.462 Unknown [id number] 2.16.8 40.1.236361.3.579.2.462 Unknown [id number] 2.16.8 40.1.786229.3.579.2.462 Unknown [id number] 2.16.8 40.1.033787.3.579.2.462 Unknown [id number] 2.16.8 40.1.733064.3.579.2.462 Unknown [id number] 2.16.8 40.1.355435.3.579.2.462 Unknown [id number] 2.16.8 40.1.696846.3.579.2.462 Unknown [id number] 2.16.8 40.1.420455.3.579.2.462 Unknown [id number] 2.16.8 40.1.714787.3.579.2.462 Unknown [id number] 2.16.8 40.1.070236.3.579.2.462 Unknown [id number] 2.16.8 40.1.742979.3.579.2.462 Unknown [id number] 2.16.8 40.1.825533.3.579.2.462 Unknown [id number] 2.16.8 40.1.496347.3.579.2.462 Unknown [id number] 2.16.8 40.1.314777.3.579.2.462 Unknown [id number] 2.16.8 40.1.953960.3.579.2.462 Unknown [id number] 2.16.8 40.1.007654.3.579.2.462 Unknown [id number] 2.16.8 40.1.405770.3.579.2.462 Unknown [id number] 2.16.8 40.1.223697.3.579.2.462 Social History Date Type Detail Facility Start: 05-29-2021 End: 06-05-2023 Tobacco smoking status AZIS Unknown if ever smoked [facility] Start: 03-14-2021 Occasional [facility] Start: 03-14-2021 None [facility] Start: 03-14-2021 Cigarettes [facility] Start: 1950 Sex Assigned At Male [facility] Start: 1950 Sex Assigned At Not on file [facility] Gender identity Not on file [facility] Start: 06-23-2024 End: 07-08-2024 Tobacco smoking status AZIS Current some day smoker [facility] Start: 06-30-2024 Sex Male (finding) [facility] Medical Equipment Procedure Code Equipment Code Equipment Origin al Text Equipment Identifier Dates EGD, with monitored anesthesia care [id number] FDA Start: 04-06-2024 Goals Date Patient Goal Desired Activity /State Functional Status Date Assessment Result Facility 06-25-2024 Functional status Standby Assist [facility] Work Phone: 06-24-2024 Functional status Ambulates;Stand with Ur inal [facility] Work Phone: 04-08-2024 Functional status Ambulates;Stand with Ur inal [facility] Work Phone: 03-21-2023 Functional status Ambulates;Basilio r;Bathroom Privilege [facility] Work Phone: 03-06-2023 Functional status Ambulates;Bath room Privilege;Active Range of Motion;Stand with Urinal [facility] Work Phone: 11-17-2022 Functional status Ambulates;Bathroom Priv ilege [facility] Work Phone: 02-16-2022 Functional status Chair [facility] Work Phone: 12-11-2021 Functional status Ambulates [facility] Work Phone: 10-26-2021 Functional status Ambulates [facility] Work Phone: 10-02-2021 Functional status Ambulates [facility] Work Phone: 10-01-2021 Functional status Tolerates Activity Well [facility] Work Phone: 08-07-2021 Functional status Patient Activity Chair [facility] Work Phone: 08-07-2021 Functional status Activity Abili ty With Assist of 1 [facility] Work Phone: 08-06-2021 Functional status Activity Abili ty With Assist of 2 [facility] Work Phone: 05-18-2021 Functional status With Assist of 1 [facility] Work Phone: 05-15-2021 Functional status Chair [facility] Work Phone: 05-04-2021 Functional status Ambulates;Chair [facility] Work Phone: 04-28-2021 Functional status With Assist of 2 [facility] Work Phone: 04-27-2021 Functional status Chair [facility] Work Phone: 04-26-2021 Functional status Chair [facility] Work Phone: 04-11-2021 Functional status Ambulates [facility] Work Phone: 03-25-2021 Functional status Chair [facility] Work Phone: Mental Status Date Assessment Result Facility 07-08-2024 Cognitive function Awake;Alert;A ppropriate;Follow s Commands [facility] Work Phone: 06-25-2024 Cognitive function Voice/Name [facility] Work Phone: 05-27-2024 Cognitive function Awake;Alert;A ppropriate;Follow s Commands [facility] Work Phone: 05-20-2024 Cognitive function Voice/Name [facility] Work Phone: 04-08-2024 Cognitive function Voice/Name [facility] Work Phone: 06-05-2023 Cognitive function Voice/Name [facility] Work Phone: 05-09-2023 Cognitive function Awake;Alert;A ppropriate;Follow s Commands [facility] Work Phone: 03-21-2023 Cognitive function Voice/Name [facility] Work Phone: 03-16-2023 Cognitive function Awake;Alert;Follows Co mmands [facility] Work Phone: 03-06-2023 Cognitive function Voice/Name [facility] Work Phone: 02-06-2023 Cognitive function Voice/Name [facility] Work Phone: 01-30-2023 Cognitive function Awake;Alert;A ppropriate;Follow s Commands [facility] Work Phone: 12-16-2022 Cognitive function Arousable To Voice/Nam e [facility] Work Phone: 11-17-2022 Cognitive function Voice/Name [facility] Work Phone: 11-08-2022 Cognitive function Voice/Name [facility] Work Phone: 05-13-2022 Cognitive function Awake;Alert;A ppropriate;Follow s Commands [facility] Work Phone: 05-06-2022 Cognitive function Arousable To Voice/Nam [facility] Work Phone: 02-16-2022 Cognitive function Appropriate;Cooperativ [facility] Work Phone: 01-28-2022 Cognitive function Voice/Name [facility] Work Phone: 01-14-2022 Cognitive function Voice/Name [facility] Work Phone: 12-11-2021 Cognitive function Touch/Shaking [facility] Work Phone: 10-26-2021 Cognitive function Voice/Name [facility] Work Phone: 10-02-2021 Cognitive function Voice/Name [facility] Work Phone: 08-07-2021 Cognitive function Level Of Cons ciousness Awake;Alert;Appropriate;Follow s Commands [facility] Work Phone: 08-07-2021 Cognitive function Appropriate;C ooperative;[facility] Work Phone: 08-06-2021 Cognitive function Patient Orien tation Person;Place;Time [facility] Work Phone: 08-06-2021 Cognitive function Appropriate;Cooperativ [facility] Work Phone: 08-06-2021 Cognitive function Level Of Cons ciousness Awake;Alert;Appropriate;Follow s Commands [facility] Work Phone: 05-18-2021 Cognitive function Voice/Name [facility] Work Phone: 05-12-2021 Cognitive function Appropriate;[facility] Work Phone: 05-03-2021 Cognitive function Voice/Name [facility] Work Phone: 04-28-2021 Cognitive function Voice/Name [facility] Work Phone: 04-26-2021 Cognitive function Appropriate;[facility] Work Phone: 04-25-2021 Cognitive function Voice/Name [facility] Work Phone: 04-11-2021 Cognitive function Voice/Name [facility] Work Phone: 03-25-2021 Cognitive function Voice/Name [facility] Work Phone: Clinical Notes 04-24-2021 to 07-20-2024 Note Date & Type Note Facility 07-20-2024 Progress note Note Date/Time July 20, 2024 3:19pm [facility] [address] [place] [address] OFFICE VISIT Date of Service: 07/20/24 1447 MR#: [id number] Acct: [id number] Name: JAYDON ALONZO Jr. Rep #: [id number] : 1950 From: Tobi Zapata MD Age/Sex: 73/M Location: [facility] Status: Signed HPI Subjective Date of Service [...] cell carcinoma Atherosclerosis of coronary artery of [place] heart without angina pectoris Pneumonia Non-Hodgkin lymphoma [...] U-100 100 unit/mL See Protocol subcut A [facility] high 11/12/23 07/20/24 Rx (3 mL) subcutaneous pen blood glucose 1 month #15 mL needle (disp) 32 gauge 32 gauge x #100 ea 11/12/23 Rx 5/16 (Easy Touch Hypodermic Needle) pen needle, diabetic 32 gauge x #100 ea 12/03/2307/20 Rx 5/32 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 sensor (FreeStyle #1 ea 12/24/23 5 Rx Basilio 3 Sensor device) 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,kidney puller,cont #1 ea 12/24/23 07/20/24 Rx (FreeStyle Basilio 3 [place]) furosemide 40 mg tablet (Lasix) 20 mg [...] Tobi Panchal> Date _ Tobi Zapata MD [facility] Signature: Date (if applicable) CC: Dr. Donna Will MD ~ [facility] Work Phone: 1(344) 402-173205-15-2025 Radiology Diagnostic study [facility]05-15-2025 Discharge summary Author Marco Hoffman [facility] Note Date/Time July 08, 2024 5:10p [facility] Medical Records Department [address] [place] [address] Emergency Department Summary 07/08/24 MR#: [id number] Acct: [id number] Name: JAYDON ALONZO Jr. Rep #:[id number] : 1950 73 From: Marco Lilly PCP: [...] cell carcinoma Atherosclerosis of coronary artery of [place] heart without angina pectoris Pneumonia Non-Hodgkin lymphoma [...] ea 12/24/23 Unknown Rx (FreeStyle Basilio 3 [place]) 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 sensor (FreeStyle #1 ea 12/24/23 Unknown [...] 71.7 H Lymph % (Auto) 15.2 L [place] % (Auto) 9.4 Eos % (Auto) 2.0 [...] Sl. Cloudy Urine pH 6.0 Ur Specific [place] 1.015 Urine Protein 30 H Urine Glucose [...] as compared to prior study. Reading Location: [facility] and lateral chest x-ray was obtained. [...] a normal sinus rhythm with frequent PACs. SD interval was approximately 160 ms. QRS interval was normal at 102 ms. QTc interval was 444 ms. [place] was normal. There are nonspecific ST-T wave [...] bmp, cbc, and vanc trough. Fax to [phone]. Routine picc care per protocol. insulin glargine-yfgn [...] Instructions: As directed (DME) FreeStyle Basilio 3 [place] Misc See Rx Instructions .Route Qty: 1 [...] Active Staff] - 5-7 Days Print Language: Portuguese Disposition Disposition: Home, Self Care What to do if you have Problems For any increased pain, shortness of breath, bleeding, nausea or vomiting, chestpain, or any unexpected problems, contact your Primary Care Provider. Call [facility] ([phone]) or report to the closest Emergency Room. Call 911 if necessary. 07/08/24 1710 <Electronically signed by Marco Hoffman DO> Cosigner Signature (if applicable): CC: Dr. Donna Will MD ~ Signed [facility] Work Phone: 1(982) 244-631502-10-2025 Evaluation note* Diagnosis Onset Date Resolution Status [...] 2024 9:11am Iron deficiency anemia chronic [facility] 2024 1:14pm Iron deficiency anemia refractory [...] to iron therapy chronic June 252024 1:32pm [facility] Work Phone: 1(948) 247-447901-21-2025 Evaluation note* Diagnosis Onset Date Resolution Status [...] chronic 2024 9:11am Iron deficiency anemia chronic [facility] 2024 1:14pm Iron deficiency anemia refractory to [...] artery disease) removed June 20, 2024 6:06pm [facility] Work Phone: 1(733) 600-424901-10-2025 Evaluation note* Diagnosis Onset Date Resolution Status [...] chronic 2024 9:11am Iron deficiency anemia chronic [facility] 2024 1:14pm Iron deficiency anemia refractory to [...] artery disease) removed June 20, 2024 6:06pm [facility] Work Phone: 1(753) 766-537904-11-2024 Procedure [facility] 03-21-2023 Telephone encounter Note* Telephone Encounter - Adri Perez RN - 03/21/2023 8:07 PM EST S: [facility]. B: Pt was discharged today from [facility]. A: [facility] not [facility]'s insulin that was prescribed at discharge. wants to know why, and also what he can take instead. R: Advised that she has reached the [facility], and to please call the other number on her card regarding prescriptions. Caller ended call. Reason for Disposition [1] Follow-up call to recent contact AND [2] information only call, no triage required Protocols used: Information Only Call - No Nankib[facility]IAEXU-NI [facility] Miscellaneous Notes* Telephone Encounter - Adri Perez RN - 03/21/2023 8:07 PM EST S: Pt's calling [facility] Nurse Advice Line regarding prescription problem. B: Pt was discharged today from [facility]. A: states [facility] insurance will not cover pt's insulin that was prescribed at discharge. wants to know why, and also what he can take instead. R: Advised that she has reached the [facility] Nurse Advice Line, and to please call the other number on her card regarding prescriptions. Caller ended call. Reason for Disposition [1] Follow-up call to recent contact AND [2] information only call, no triage required Protocols used: Information Only Call - No Xysjct-EOBFZ-ZC documented in this encounterSAultman Orrville [id number] History and physical note Author Nadira Ricks [facility] March 16, 2023 4:47pm Note Date/Time March 16, 2023 3 :13pm [facility] Medical Records Department [address] [place] [address] H&P Exam - Hospitalist 03/16/23 1449 MR#: [id number] Acct: [id number] Name: JAYDON ALONZO Rep #:[id number] : 1950 72 From: Nadira Ricks DO PCP: Dr. Donna Will MD Status:ADM IN Location: ICU CVICU20 1-1 HPI - General General Date of Admission: 03/16/23 Date of Service: 03/16/23 Chief Complaint: Fall/Fatigue/Hypotension/Hyperglycemia HPI Narrative JAYDON ALONZO, is a 72 M who presented to the emergency department at [facility] on 03/16/2023 after a fall at [...] admitted to the ICU for further care. 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 Nadira Ricks DO; Dr. Donna Will MD~ Signed [facility] Work Phone: 1([phone]) 497-483201-21-2024 Discharge summary Author Eva [facility] March 16, 2023 5:41pm Note Date/Time March 16, 2023 2 :34pm [facility] Medical Records Department [address] [place] [address] Emergency Department Summary 03/16/23 MR#: [id number] Acct: [id number] Name: JAYDON ALONZO Rep #:[id number] : 1950 72 From: Eva Lilly PCP: [...] Per EMS patient's blood sugar was in [id number]. Chart review shows the patient was recently [...] time of discharge patient's hemoglobin was 10.0. [facility] Medical History Acute respiratory failure with hypoxia Allergic rhinitis Arthritis Asthma Atherosclerosis of coronary artery of [place] heart without angina pectoris Bleeding tendency Cancer [...] 82.4 H Lymph % (Auto) 7.3 L [place] % (Auto) 5.5 Eos % (Auto) 0.5 [...] Color Urine Clarity Urine pH Ur Specific [place] Urine Protein Urine Glucose (UA) Urine Ketones [...] (Auto) Neut % (Auto) Lymph % (Auto) [place] % (Auto) Eos % (Auto) Baso % [...] Clarity Clear Urine pH 6.5 Ur Specific [place] 1.010 Urine Protein 30 H Urine Glucose [...] procedures): 30-74 minutes (40), Discussing w/Patient &/or 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, Discussing w/Consultants and Arranging Admission or Transfer Discharge Plan Triage Chief Complaint: General Illness ED Provider: Eva Marie Dx/Rx/DC Orders Clinical Impression: Acute on chronic blood loss anemia, Acute hyperglycemia, Syncope, Acute kidney injury superimposed on CKD, Acute upper GI bleed Primary Care Provider: Donna Will Disposition Disposition: Acute Care Hospital [facility] Discharge Date/Time: 03/16/23 17:40 What to do if you have Problems For any increased pain, shortness of breath, bleeding, nausea or vomiting, chestpain, or any unexpected problems, contact your Primary Care Provider. Call [facility] ([phone]) or report to the closest Emergency Room. Call 911 if necessary. 03/16/23 1741 <Electronically signed by Eva Marie DO> Cosigner Signature (if applicable): CC: Dr. Donna Will MD ~ Signed [facility] Work Phone: [phone]) 415-320301-11-2024 Discharge summary Author Jordan Ortiz [facility] March 06, 2023 11:07am Note Date/Time March 06, 2023 1 1:06am [facility] Medical Records Department [address] [place] [address] Discharge Summary 03/06/23 1105 MR#: [id number] Acct: [id number] Name: JAYDON ALONZO Jr. Rep #:[id number] : 1950 72 From: Jordan Ortiz MD PCP: Dr. Donna Will MD Status:ADM IN [facility] Prov[facility] Date of Admission: 03/03/23 [...] rhythm. 19. New onset A-fib ? Patient UCT3ZH1-THFx score was calculated to be 5 patient [...] 79.8 H, Lymph % (Auto) 8.3 L, [place] % (Auto) 10.8 H, Eos % (Auto) [...] Self Care Charges/Coding Visit Charges Inpatient E&M: 01176 Disch Hosp >30min 03/06/23 1107 <Electronically signed by Jordan Ortiz MD> Cosigner Signature (if applicable): CC: Dr. Jordan Ortiz MD; Dr. Donna Will MD~ Signed [facility] Work Phone: 1([phone]) 770-335601-11-2024 Progress note Author Jordan [facility] March 06, 2023 9:43am Note Date/Time March 06, 2023 9 :43am [facility] Medical Records Department [address] [place] [address] Progress Note - Hospitalist 03/06/23 0940 MR#: [id number] Acct: [id number] Name: JAYDON ALONZO Andre Roper Rep #:[id number] : 1950 72 From: Jordan Ortiz MD PCP: Dr. Donna Will MD Status:ADM IN Location: [place] [address]- Reason for Visit Reason for Visit: Diagnoses [...] 79.8 H, Lymph % (Auto) 8.3 L, [place] % (Auto) 10.8 H, Eos % (Auto) [...] rhythm. 19. New onset A-fib ? Patient ZRB9VY1-UOAk score was calculated to be 5 patient subsequently startedon systemic anticoagulation with apixaban after discussion with him Time spent in the patient's overall evaluation,decision-making process, review of diagnostic data, adjustment of management, discussion with other providers, nursing nursing and ancillary staff involved in patient's care documentation,40 minutes Charges/Coding Visit Charges Inpatient E&M: 94052 Subs Hosp L2 03/06/23 0943 <Electronically signed by Jordan Ortiz MD> Cosigner Signature (if applicable): CC: ~ Signed [facility] Work Phone: 1(435) 973-945901-10-2024 Progress note Author Jordan [facility] March 05, 2023 10:15am Note Date/Time March 05, 2023 1 0:15am [facility] Medical Records Department [address] [place] [address] Progress Note - Hospitalist 03/05/23 1012 MR#: [id number] Acct: [id number] Name: JAYDON ALONZO Jr. Rep #:[id number] : 1950 72 From: Jordan Ortiz MD PCP: Dr. Donna Will MD Status:ADM IN Location: [place] [address] Reason for Visit Reason for Visit: Diagnoses [...] documentation, 50minutes Charges/Coding Visit Charges Inpatient E&M: 59546 Subs Hosp L3 03/05/23 1015 <Electronically signed by Jordan Ortiz MD> Cosigner Signature (if applicable): CC: ~ Signed [facility] Work Phone: 1(246) 642-984701-09-2024 Consult note Author Peter Moseley [facility] March 04, 2023 12:01pm Note Date/Time March 04, 2023 12 :02pm [facility] Medical Records Department [address] [place] [address] Counseling Note - Pharmacy 03/04/23 1201 MR#: [id number] Acct: [id number] Name: JAYDON ALONZO Jr. Rep #:[id number] : 1950 72 From: Peter Moseley PCP: Dr. Donna Will MD Status:ADM IN Y [facility] has performed discharge medication [...] Signature (if applicable): Date CC: ~ Signed [facility] Work Phone: [phone]) 641-213901-09-2024 Discharge summary Author [facility] March 04, 2023 11:39am Note Date/Time March 04, 2023 11 :39am [facility] Medical Records Department [address] [place] [address] Discharge Summary 03/04/23 1138 MR#: [id number] Acct: [id number] Name: CHERIJAYDON Andre Roper Rep #:[id number] : 1950 72 From: Jordan Ortiz MD PCP: Dr. Donna Will MD Status:ADM IN Location: [place] [address] Providers Date of Admission: 03/03/23 Date of [...] 90.3 H, Lymph % (Auto) 3.5 L, [place] % (Auto) 5.1, Eos % (Auto) 0.0, [...] Self Care Charges/Coding Visit Charges Inpatient E&M: 94215 Disch Hosp >30min 03/04/23 1139 <Electronically signed by Jordan Ortiz MD> Cosigner Signature (if applicable): CC: Dr. Jordan Ortiz MD; Dr. Donna Will MD~ Signed [facility] Work Phone: [phone]) 833-602801-09-2024 Progress note Author Jordan Ortiz [facility] March 04, 2023 11:36am Note Date/Time March 04, 2023 8: 18am [facility] Medical Records Department [address] [place] [address] Progress Note - Hospitalist 03/04/23817 MR#: [id number] Acct: [id number] Name: JAYDON ALONZO Jr. Rep #:[id number] : 1950 72 From: Jordan Ortiz MD PCP: Dr. Donna Will MD Status:ADM IN Location: [place] [address] Reason for Visit Reason for Visit: Diagnoses [...] documentation, 35minutes Charges/Coding Visit Charges Inpatient E&M: 72083 Subs Hosp L2 03/04/23 1136 <Electronically signed by Jordan Ortiz MD> Cosigner Signature (if applicable): CC: ~ Signed [facility] Work Phone: 1(924) 414-280101-08-2024 Progress note Author Jordan Ortiz [facility] March 03, 2023 9:16am Note Date/Time March 03, 2023 9: 03am [facility] Medical Records Department [address] [place] [address] Progress Note - Hospitalist 03/03/23 0903 MR#: [id number] Acct: [id number] Name: CHERIJAYDON Andre Roper Rep #:[id number] : 1950 72 From: Jordan Ortiz MD PCP: Dr. Donna Will MD Status:ADM [facility] Location: [place] [address] Reason for Visit Reason for Visit: Diagnoses [...] 91.8 H, Lymph % (Auto) 3.5 L, [place] % (Auto) 3.9, Eos % (Auto) 0.0, [...] 50 Minutes Charges/Coding Visit Charges Inpatient E&M: 79433 Subs Hosp L3 03/03/23 0916 <Electronically signed by Jordan Ortiz MD> Cosigner Signature (if applicable): CC: ~ Signed [facility] Work Phone: 1(165) 968-318901-07-2024 Discharge summary Author Jordan Ortiz [facility] March 02, 2023 10:54am Note Date/Time March 02, 2023 10 :52am [facility] Medical Records Department [address] [place], [place] [address] [place] [address] Discharge Summary 03/02/23 1050 MR#: [id number] Acct: [id number] Name: JAYDON ALONZO Jr. Rep #:[id number] : 1950 72 From: Jordan Ortiz MD PCP: Dr. Donna Will MD Status:ADM [place] Location: [place] [address] Providers Date of Admission: 02/28/23 Date of [...] 89.5 H, Lymph % (Auto) 5.3 L, [place] % (Auto) 4.0, Eos % (Auto) 0.0, [...] Self Care Charges/Coding Visit Charges Inpatient E&M: 31070 Disch Hosp >30min 03/02/23 1054 <Electronically signed by Jordan Ortiz MD> Cosigner Signature (if applicable): CC: Dr. Jordan Ortiz MD; Dr. Donna Will MD~ Signed [facility] Work Phone: 1(419) 253-716301-07-2024 Progress note Author Jordan [facility] March 02, 2023 10:47am Note Date/Time March 02, 2023 7: 56am [facility] Medical Records Department [address] [place] [address] Progress Note - Hospitalist 03/02/23 0755 MR#: [id number] Acct: [id number] Name: CHERIJAYDON Jr. Rep #:[id number] : 1950 72 From: Jordan Ortiz MD PCP: Dr. Donna Will MD Status:ADM [place] Location: [place] [address] Reason for Visit Reason for Visit: Diagnoses [...] (Auto) 84.0 H, Lymph %(Auto) 10.9 L, [place] % (Auto) 4.0, Eos % (Auto) 0.0, [...] 89.5 H, Lymph % (Auto) 5.3 L, [place] % (Auto) 4.0, Eos % (Auto) 0.0, [...] documentation, 35Minutes Charges/Coding Visit Charges Inpatient E&M: 12972 Subs Hosp L2 03/02/23 1047 <Electronically signed by Jordan Ortiz MD> Cosigner Signature (if applicable): CC: ~ Signed [facility] Work Phone: 1(110) 879-754701-06-2024 Progress note Author Jordan Escobarjaclyn [facility] March 01, 2023 11:48am Note Date/Time March 01, 2023 8: 11am [facility] Medical Records Department [address] [place] [address] Progress Note - Hospitalist 03/01/23 0811 MR#: [id number] Acct: [id number] Name: JAYDON ALONZO Andre Roper Rep #:[id number] : 1950 72 From: Jordan Ortiz MD PCP: Dr. Donna Will MD Status:ADM [place] Location: [place] [address] Reason for Visit Reason for Visit: Diagnoses [...] 74.3 H, Lymph % (Auto) 11.7 L, [place] % (Auto) 8.6, Eos % (Auto) 3.9, [...] documentation,55 Minutes Charges/Coding Visit Charges Inpatient E&M: 30219 Subs Hosp L3 03/01/23 1148 <Electronically signed by Jordan Ortiz MD> Cosigner Signature (if applicable): CC: ~ Signed [facility] Work Phone: 1(160) 294-648501-05-2024 History and physical note Author Mable Pritchard [facility] February 28, 2023 4:59pm Note Date/Time February 28, 2023 4: 46pm [facility] Medical Records Department [address] [place] [address] H&P Exam - Hospitalist 02/28/23 1642 MR#: [id number] Acct: [id number] Name: JAYDON ALONZO Jr. Rep #:[id number] : 1950 72 From: Mable Pritchard MD PCP: Dr. Donna Will MD Status:ADM [place] Location: [place] [address] HPI - General General Date of Admission: 02/28/23 Date of Service: 02/28/23 Chief Complaint: Gen weakness, SOB HPI Narrative JAYDON ALONZO, is a 72-year-old male history of COPD on 4 L home O2, diabetes, VTE,rheumatoid arthritis, depression, BPH who presented to [facility] 02/28/2023 with increased cough with yellowish [...] left leg is slightly swollen as well. [facility] Medical History Acute respiratory failure with hypoxia Allergic rhinitis Arthritis Asthma Atherosclerosis of coronary artery of [place] heart without angina pectoris Bleeding tendency Cancer [...] 74.3 H, Lymph % (Auto) 11.7 L, [place] % (Auto) 8.6, Eos % (Auto) 3.9, [...] Pritchard MD Charges/Coding Visit Charges Inpatient E&M: 02976 Init Hosp L2 02/28/23 8351 <Electronically signed by Mable Pritchard MD> Cosigner Signature (if applicable): CC: Dr. Donna Will MD; Dr. Mable Pritchard MD~ Signed [facility] Work Phone: 1(230) 484-859801-05-2024 Discharge summary Author Dwain Nowak [facility] February 28, 2023 4:16pm Note Date/Time February 28, 2023 11 :58am [facility] Medical Records Department [address] [place] [address] Emergency Department Summary 02/28/23 MR#: [id number] Acct: [id number] Name: JAYDON ALONZO Jr. Rep #:[id number] : 1950 72 From: Dwain Nowak MD [...] Arthritis Asthma Atherosclerosis of coronary artery of [place] heart without angina pectoris Bleeding tendency Cancer [...] 74.3 H Lymph % (Auto) 11.7 L [place] % (Auto) 8.6 Eos % (Auto) 3.9 [...] 12:46 EST Reading Location ID and State: [address] [place] [address] , Service support , Chest x-ray, portable, single view shows a chronic right pleural effusion. Priorsternotomy. No acute process. Rhythm Strip Rhythm Strip: Sinus Rhythm Rate: 82 Ectopy: None EKG Initial EKG: Attestation: I personally reviewed and interpreted this EKG as follows: Interpretation: Sinus Rhythm and No Acute Injury Pattern Comments: Sinus rhythm rate 82 no acute signs of RI or ischemia. No acute change from prior EKG from October. Prior EKG tracings: available for review Prior: Unchanged Discharge Plan Dx/Rx/DC Orders Clinical Impression: History of COPD, History of chronic kidney disease, Acute dyspnea, Anemia, Pleural effusion on right, Acute hyperkalemia Disposition Disposition: Acute Care Hospital [facility] What to do if you have Problems For any increased pain, shortness of breath, bleeding, nausea or vomiting, chestpain, or any unexpected problems, contact your Primary Care Provider. Call [facility] ([phone]) or report to the closest Emergency Room. Call 911 if necessary. 02/28/23 1616 <Electronically signed by Dwain Nowak MD> Cosigner Signature (if applicable): CC: Dr. Donna Will MD ~ Signed [facility] Work Phone: 1(324) 149-380901-05-2024 Discharge summary Author Dwain Nowak [facility] February 28, 2023 4:16pm Note Date/Time February 28, 2023 11 :58am [facility] Medical Records Department [address] [place] [address] Emergency Department Summary 02/28/23 MR#: [id number] Acct: [id number] Name: JAYDON ALONZO Jr. Rep #:[id number] : 1950 72 From: Dwain Nowak MD [...] Arthritis Asthma Atherosclerosis of coronary artery of [place] heart without angina pectoris Bleeding tendency Cancer [...] 74.3 H Lymph % (Auto) 11.7 L [place] % (Auto) 8.6 Eos % (Auto) 3.9 [...] 12:46 EST Reading Location ID and State: [address] [place] [address] , Service support , Chest x-ray, portable, single view shows a chronic right pleural effusion. Priorsternotomy. No acute process. Rhythm Strip Rhythm Strip: Sinus Rhythm Rate: 82 Ectopy: None EKG Initial EKG: Attestation: I personally reviewed and interpreted this EKG as follows: Interpretation: Sinus Rhythm and No Acute Injury Pattern Comments: Sinus rhythm rate 82 no acute signs of RI or ischemia. No acute change from prior EKG from October. Prior EKG tracings: available for review Prior: Unchanged Discharge Plan Dx/Rx/DC Orders Clinical Impression: History of COPD, History of chronic kidney disease, Acute dyspnea, Anemia, Pleural effusion on right, Acute hyperkalemia Disposition Disposition: Acute Care Hospital [facility] What to do if you have Problems For any increased pain, shortness of breath, bleeding, nausea or vomiting, chestpain, or any unexpected problems, contact your Primary Care Provider. Call [facility] ([phone]) or report to the closest Emergency Room. Call 911 if necessary. 02/28/23 1616 <Electronically signed by Dwain Nowak MD> Cosigner Signature (if applicable): CC: Dr. Donna Will MD ~ Signed [facility] Work Phone: 1(353) 463-787309-24-2023 Discharge summary Author Jordan Ortiz [facility] November 17, 2022 11:58am Note Date/Time November 17, 2022 11:53am [facility] Medical Records Department [address] [place] [address] Discharge Summary 11/17/22 1150 MR#: [id number] Acct: [id number] Name: JAYDON ALONZO Jr. Rep #:[id number] : 1950 72 From: Jordan Ortiz MD PCP: Dr. Donna Will MD Status:ADM IN Location: [place] [address] Providers Date of Admission: 11/15/22 Date of [...] % (Auto) 60.4, Lymph % (Auto) 19.4, [place] % (Auto) 12.0 H, Eos % (Auto) [...] Self Care Charges/Coding Visit Charges Inpatient E&M: 84806 Disch Hosp >30min 11/17/22 1158 <Electronically signed by Jordan Otriz MD> Cosigner Signature (if applicable): CC: Dr. Jordan Ortiz MD; Dr. Donna Will MD~ Signed [facility] Work Phone: 1(163) 760-553809-24-2023 Progress note Author Jordan Ortiz [facility] November 17, 2022 10:40am Note Date/Time November 17, 2022 8:32am [facility] Medical Records Department [address] [place] [address] Progress Note - Hospitalist 11/17/22 0831 MR#: [id number] Acct: [id number] Name: JAYDON ALONZO Jr. Rep #:[id number] : 1950 72 From: Jordan Ortiz MD PCP: Dr. Donna Will MD Status:ADM IN Location: [place] [address] Reason for Visit Reason for Visit: Diagnoses [...] % (Auto) 60.4, Lymph % (Auto) 19.4, [place] % (Auto) 12.0 H, Eos % (Auto) [...] documentation, 35Minutes Charges/Coding Visit Charges Inpatient E&M: 23327 Subs Hosp L2 11/17/22 1040 <Electronically signed by Jordan Ortiz MD> Cosigner Signature (if applicable): CC: ~ Signed [facility] Work Phone: 1(795) 962-203409-23-2023 Progress note Author Jordan Ortiz [facility] November 16, 2022 11:02am Note Date/Time November 16, 2022 8:33am [facility] Medical Records Department [address] [place] [address] Progress Note - Hospitalist 11/16/22 0832 MR#: [id number] Acct: [id number] Name: JAYDON ALONZO Jr. Rep #:[id number] : 1950 72 From: Jordan Ortiz MD PCP: Dr. Donna Will MD Status:ADM IN Location: [place] [address] Reason for Visit Reason for Visit: Diagnoses [...] (Auto) 65.2, Lymph % (Auto) 17.9 L, [place] % (Auto) 8.9, Eos % (Auto) 6.0 [...] documentation, 55Minutes Charges/Coding Visit Charges Inpatient E&M: 50010 Subs Hosp L3 11/16/22 1102 <Electronically signed by Jordan Ortiz MD> Cosigner Signature (if applicable): CC: ~ Signed [facility] Work Phone: 1(324) 241-827809-22-2023 History and physical note Author Loki Lozoya [facility] November 15, 2022 8:33pm Note Date/Time November 15, 2022 7:11pm [facility] Medical Records Department [address] [facility] [place] [address] H&P Exam - Hospitalist 11/15/22 1905 MR#: [id number] Acct: [id number] Name: JAYDON ALONZO Jr. Rep #:[id number] : 1950 72 From: Loki worthington DO PCP: Dr. Donna Will MD Status:ADM IN Location: [place] [address] HPI - General General Date of Admission: [...] and former tobacco use who presented to [facility] ED on 11/13/2022 with worsening dyspnea. Patient [...] right and small on left, bibasilar atelectasis. [facility] Medical History Acute respiratory failure with hypoxia Allergic rhinitis Arthritis Asthma Atherosclerosis of coronary artery of [place] heart without angina pectoris Bleeding tendency Cancer [...] (Auto) 65.2, Lymph % (Auto) 17.9 L, [place] % (Auto) 8.9, Eos % (Auto) 6.0 [...] and former tobacco use who presented to [facility] on 11/13/2022 with worsening dyspnea. 1. Volume [...] 55 minutes. Charges/Coding Visit Charges Inpatient E&M: 40406 Init Hosp L2 11/15/222032 <Electronically signed by Loki Lozoya DO> Cosigner Signature (if applicable): CC: Dr. Loki Lozoya DO; Dr. Donna Will MD~ Signed [facility] Work Phone: 1([phone]) 604-319709-22-2023 Discharge summary Author Jj Lealo [facility] November 15, 2022 7:09pm Note Date/Time November 15, 2022 2:59pm [facility] Medical Records Department [address] [place] [address] [place] [address] Emergency Department Summary 11/15/22 MR#: [id number] Acct: [id number] Name: JAYDON ALONZO Jr. Rep #:[id number] : 1950 72 From: Jj Garcia MD [...] Arthritis Asthma Atherosclerosis of coronary artery of [place] heart without angina pectoris Bleeding tendency Cancer [...] (Auto) 65.2 Lymph % (Auto) 17.9 L [place] % (Auto) 8.9 Eos % (Auto) 6.0 [...] (Rate is 74. The EKG is normal. SD intervalis 152 ms. QRS duration 102 ms. QT duration 400 ms. [place] is normal) Treatment and Re-Evaluation :: Walked [...] Care Provider] - Disposition Disposition: Acute Care [facility] What to do if you have Problems For any increased pain, shortness of breath, bleeding, nausea or vomiting, chestpain, or any unexpected problems, contact your Primary Care Provider. Call [facility] ([phone]) or report to the closest Emergency Room. Call 911 if necessary. 11/15/221908 <Electronically signed by Jj Garcia MD> Cosigner Signature (if applicable): CC: Dr. Donna Will MD ~ Signed [facility] Work Phone: 1(185) 482-348309-22-2023 Discharge summary Author Jj Garcia [facility] November 15, 2022 7:09pm Note Date/Time November 15, 2022 2:59pm [facility] Medical Records Department [address] [place] [address] Emergency Department Summary 11/15/22 MR#: [id number] Acct: [id number] Name: JAYDON ALONZO JrJuan Rep #:[id number] : 1950 72 From: Jj Garcia MD [...] Arthritis Asthma Atherosclerosis of coronary artery of [place] heart without angina pectoris Bleeding tendency Cancer [...] (Auto) 65.2 Lymph % (Auto) 17.9 L [place] % (Auto) 8.9 Eos % (Auto) 6.0 [...] (Rate is 74. The EKG is normal. SD intervalis 152 ms. QRS duration 102 ms. QT duration 400 ms. [place] is normal) Treatment and Re-Evaluation :: Walked [...] Provider] - Disposition Disposition: Acute Care Hospital [facility] What to do if you have Problems For any increased pain, shortness of breath, bleeding, nausea or vomiting, chestpain, or any unexpected problems, contact your Primary Care Provider. Call [facility] ([phone]) or report to the closest Emergency Room. Call 911 if necessary. 11/15/221908 <Electronically signed by Jj Garcia MD> Cosigner Signature (if applicable): CC: Dr. Donna Will MD ~ Signed [facility] Work Phone: 1(532) 596-654907-06-2023 Discharge summary Author Adam Witttyler [facility] August 29, 2022 6:21pm Note Date/Time August 29, 2022 4:41p m [facility] Medical Records Department [address] [place] [address] Emergency Department Summary 08/29/22 MR#: [id number] Acct: [id number] Name: JAYDON ALONZO JrJuan Rep #:[id number] : 1950 71 From: dAam Freeman MD PCP: Dr. Donna Will MD [...] states that he swallowed a camera for sales data analyst, Dr. Galeana, on Fridayof last week. He [...] Arthritis Asthma Atherosclerosis of coronary artery of [place] heart without angina pectoris Bleeding tendency Cancer [...] (1,000 unit) capsule 25 mcg PO DAILY /24/21 [History Last Taken 12/08/21] nitroglycerin 0.4 mg [...] (Auto) 68.2 Lymph % (Auto) 15.6 L [place] % (Auto) 10.4 H Eos % (Auto) [...] as directed. You have prescriptions waiting at [facility] for Carafate and Protonix. Disposition Disposition: Home, Self Care What to do if you have Problems For any increased pain, shortness of breath, bleeding, nausea or vomiting, chestpain, or any unexpected problems, contact your Primary Care Provider. Call [facility] ([phone]) or report to the closest Emergency Room. Call 911 if necessary. 08/29/221820 <Electronically signed by Adam Freeman MD> Cosigner Signature (if applicable): CC: Dr. Donna Will MD ~ Signed [facility] Work Phone: 1([phone]) 528-896207-06-2023 Hospital Discharge instructions Additional Instructions Follow-up with Dr. Galenaa. They will attempt to contact you tomorrow for outpatient iron infusion. If you do not hear from them by 10 AM, call the office. Take your medications as directed. You have prescriptions waiting at [facility] for Carafate and Protonix. [facility] Work Phone: 1(134) 499-641604-12-2023 Procedure [facility] 05-16-2022 Procedure [facility]03-21-2023 Procedure note [facility]01-27-2023 Procedure [facility] 04-24-2021 Evaluation note* Diagnosis Onset Date [...] remission acute Atherosclerosis of coronary artery of [place] heart without angina pectoris chronic Chronic hypoxemic respiratory failure chronic COPD (chronic obstructive pulmonary disease) chronic Essential hypertension chron ic GI bleed April, chronic Iron deficiency anemia chron ic Obesity chronic Type 2 diabetes mellitus [facility] Work Phone: [phone]) 205-306703-01-2022 Evaluation note* Diagnosis Onset Date Resolution Status Iron deficiency anemia chron ic 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 Iron deficiency anemia chron ic 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 GI bleed April, chronic Iron deficiency anemia chron ic Nicotine dependence, cigarettes, in remission acute Atherosclerosis of coronary artery of [place] heart without angina pectoris chronic Chronic hypoxemic respiratory failure chronic COPD (chronic obstructive pulmonary disease) chronic Essential hypertension chron ic GI bleed April, chronic Iron deficiency anemia chron ic Obesity chronic Type 2 diabetes mellitus chr onic Anemia chronic Iron deficiency anemia chron ic 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 Atherosclerosis of coronary artery of [place] heart without angina pectoris chronic Essential hypertension [...] ic Hyperlipidemia chronic Type 2 diabetes mellitus [facility] Work Phone: Consult note Author Kellen Sanchez [facility] March 06, 2023 4:39pm Note Date/Time March 06, 2023 4 :39pm [facility] Medical Records Department [address] [place], [place] [address] [address] Counseling Note - Pharmacy 03/06/23 1636 MR#: [id number] Acct: [id number] Name: JAYDON ALONZO Jr. Rep #:[id number] : 1950 72 From: Kellen Sanchez PCP: Dr. Donna Will MD Status:ADM IN [facility] has performed discharge medication [...] Signature (if applicable): Date CC: ~ Signed [facility] Work Phone: Evaluation note* Diagnosis Onset Date Resolution Status COVID-19 acute Acute hypoxemic respiratory failure due to COVID-19 resolved Encephalopathy acute resolve d FTT (failure to thrive) in adult resolved Hypoxia resolved COVID-19 acute Atherosclerosis of coronary artery of [place] heart without angina pectoris chronic Hyperlipidemia chronic Acute hypoxemic respiratory failure due to COVID-19 resolved Acute alteration in mental status resolved Acute respiratory failure with hypoxia resolved Hypoxemia resolved Pneumonia resolved Pneumonia acute Asthma chronic Atherosclerosis of coronary artery of [place] heart without angina pectoris chronic Chronic bronchitis [...] deficiency acute Chronic obstructive pulmonary disease chronic [facility] Work Phone: Evaluation note* Diagnosis Onset Date Resolution Status Acute alteration in mental status resolved Acute respiratory failure with hypoxia resolved Hypoxemia resolved Pneumonia resolved Pneumonia acute Asthma chronic Atherosclerosis of coronary artery of [place] heart without angina pectoris chronic Chronic bronchitis [...] History of diabetes mellitus, type II chronic [facility] Work Phone: Evaluation note* Diagnosis Onset Date Resolution Status Acute alteration in mental status resolved Acute respiratory failure with hypoxia resolved Hypoxemia resolved Pneumonia resolved Pneumonia acute Asthma chronic Atherosclerosis of coronary artery of [place] heart without angina pectoris chronic Chronic bronchitis [...] II chronic Generalized weakness acute Pneumonia acute [facility] Work Phone: Evaluation note* Diagnosis Onset [...] embolism acute Swelling of lower extremity acute [facility] Work Phone: Evaluation note* Diagnosis Onset Date Resolution Status Acute on chronic respiratory failure with hypoxemia chronic Chronic obstructive pulmonary disease chronic Chronic obstructive pulmonary disease chronic Hyperlipidemia chronic Generalized weakness resolve d Pneumonia resolved Iron deficiency anemia chron ic Swelling of lower extremity chronic Hypoxia acute Leukocytosis acute Pneumonia acute [facility] Work Phone: Evaluation note* Diagnosis Onset Date Resolution Status Acute on chronic respiratory failure with hypoxemia chronic Chronic obstructive pulmonary disease chronic Chronic obstructive pulmonary disease chronic Hyperlipidemia chronic Generalized weakness resolve d Pneumonia resolved Iron deficiency anemia chron ic Swelling of lower extremity chronic Pneumonia acute Hypoxia resolved Leukocytosis resolved Atherosclerosis of coronary artery of [place] heart without angina pectoris chronic Essential hypertension [...] chronic Type 2 diabetes mellitus chr onic [facility] Work Phone: Evaluation note* Diagnosis Onset Date Resolution Status Iron deficiency anemia chron ic Swelling of lower extremity chronic Pneumonia acute Hypoxia resolved Leukocytosis resolved Atherosclerosis of coronary artery of [place] heart without angina pectoris chronic Essential hypertension [...] acute Leukocytosis acute Pneumonia acute COPD exacerbation [facility] Work Phone: Evaluation note* Diagnosis Onset Date Resolution Status Iron deficiency anemia chron ic Swelling of lower extremity chronic Pneumonia acute Hypoxia resolved Leukocytosis resolved Atherosclerosis of coronary artery of [place] heart without angina pectoris chronic Essential hypertension [...] exacerbation chronic Iron deficiency anemia chron ic [facility] Work Phone: Evaluation note* Diagnosis Onset Date Resolution Status Iron deficiency anemia chron ic Swelling of lower extremity chronic Hypoxia resolved Leukocytosis resolved Pneumonia resolved Atherosclerosis of coronary artery of [place] heart without angina pectoris chronic Essential hypertension [...] 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 [facility] Work Phone: Evaluation note* Diagnosis Onset Date Resolution Status Hypoxia resolved Leukocytosis resolved Pneumonia resolved Atherosclerosis of coronary artery of [place] heart without angina pectoris chronic Essential hypertension [...] 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 [facility] Work Phone: Evaluation note* Diagnosis Onset [...] Bilateral pneumonia acute Debility acute Hypoxemia acute [facility] Work Phone: Evaluation note* Diagnosis Onset [...] with hypoxemia chronic Chronic obstructive pulmonary disease [facility] Work Phone: Evaluation note* Diagnosis Onset [...] failure chronic COPD (chronic obstructive pulmonary disease) [facility] Work Phone: Evaluation note* Diagnosis Onset [...] 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 [facility] Work Phone: Evaluation note* Diagnosis Onset [...] (chronic obstructive pulmonary disease) chronic Tobacco abuse [facility] Work Phone: Evaluation note* Diagnosis Onset [...] April, chronic Iron deficiency anemia chron ic [facility] Work Phone: Evaluation note* Diagnosis Onset [...] failure acute Atherosclerosis of coronary artery of [place] heart without angina pectoris chronic Chronic kidney [...] disease) chronic Nicotine dependence, cigarettes, in remission [facility] Work Phone: Evaluation note* Diagnosis Onset [...] failure acute Atherosclerosis of coronary artery of [place] heart without angina pectoris chronic Chronic kidney [...] Anemia acute Pleural effusion on right ac [place] History of chronic kidney disease chronic History of COPD chronic [facility] Work Phone: Evaluation note* Diagnosis Onset [...] failure acute Atherosclerosis of coronary artery of [place] heart without angina pectoris chronic Chronic kidney [...] failure acute Pleural effusion on right ac [place] COPD exacerbation chronic History of chronic kidney disease chronic History of COPD chronic History of coronary artery stent placement September chronic Type 2 diabetes mellitus chr onic History of pulmonary embolus (PE) April 30, 2021 resolved [facility] Work Phone: Evaluation note* Diagnosis Onset [...] failure acute Atherosclerosis of coronary artery of [place] heart without angina pectoris chronic Chronic kidney [...] failure acute Pleural effusion on right ac [place] COPD exacerbation chronic History of chronic kidney disease chronic History of COPD chronic History of coronary artery stent placement September chronic Type 2 diabetes mellitus chr onic Acute hyperkalemia resolved Anemia resolved History of pulmonary embolus (PE) April 30, 2021 resolved Acute anemia acute Acute lactic acidosis acute LUIS (acute kidney injury) ac [place] Elevated troponin I level ac [place] Fall acute Fatigue acute Hemorrhagic shock acute Hyperglycemia acute Hypotension acute Leukocytosis acute Pleural effusion on right [place] [facility] Work Phone: Evaluation note* Diagnosis Onset Date Resolution Status Anemia chronic Iron deficiency anemia chron ic Iron deficiency anemia refra ctory to iron therapy chronic Chronic hypoxemic respiratory failure chronic COPD (chronic obstructive pulmonary disease) chronic Nicotine dependence, cigarettes, in remission chronic Acute dyspnea acute Heart failure acute Pleural effusion on right ac [place] COPD exacerbation chronic History of chronic kidney disease chronic History of COPD chronic History of coronary artery stent placement September chronic Type 2 diabetes mellitus chr onic Acute hyperkalemia resolved Anemia resolved History of pulmonary embolus (PE) April 30, 2021 resolved Acute anemia acute Acute hyperglycemia acute Acute lactic acidosis acute LUIS (acute kidney injury) [place] Elevated troponin I level ac [place] Fall acute Fatigue acute Hemorrhagic shock acute Hyperglycemia acute Hypotension acute Leukocytosis acute Pleural effusion on right ac [place] Syncope acute Acute on chronic blood loss [...] resolved Acute upper GI bleed resolve d [facility] Work Phone: Evaluation note* Diagnosis Onset Date Resolution Status Anemia chronic Iron deficiency anemia chron ic Iron deficiency anemia refra ctory to iron therapy chronic Chronic hypoxemic respiratory failure chronic COPD (chronic obstructive pulmonary disease) chronic Nicotine dependence, cigarettes, in remission chronic Acute dyspnea acute Heart failure acute Pleural effusion on right ac [place] COPD exacerbation chronic History of chronic kidney disease chronic History of COPD chronic History of coronary artery stent placement September chronic Type 2 diabetes mellitus chr onic Acute hyperkalemia resolved Anemia resolved History of pulmonary embolus (PE) April 30, 2021 resolved Acute anemia acute Acute hyperglycemia acute Acute lactic acidosis acute LUIS (acute kidney injury) ac [place] Elevated troponin I level ac [place] Fall acute Fatigue acute Hemorrhagic shock acute Hyperglycemia acute Hypotension acute Leukocytosis acute Pleural effusion on right ac [place] Syncope acute Acute on chronic blood loss [...] fraction) acute Atherosclerosis of coronary artery of [place] heart without angina pectoris chronic Essential hypertension chron ic History of coronary artery stent placement September chronic Hyperlipidemia chronic Iron deficiency anemia chron ic [facility] Work Phone: Evaluation note* Diagnosis Onset Date Resolution Status Acute dyspnea acute Heart failure acute Pleural effusion on right [place] COPD exacerbation chronic History of chronic kidney disease chronic History of COPD chronic History of coronary artery stent placement September chronic Type 2 diabetes mellitus chr onic Acute hyperkalemia resolved Anemia resolved History of pulmonary embolus (PE) April 30, 2021 resolved Acute anemia acute Acute hyperglycemia acute Acute lactic acidosis acute LUIS (acute kidney injury) [place] Elevated troponin I level [place] Fall acute Fatigue acute Hemorrhagic shock acute Hyperglycemia acute Hypotension acute Leukocytosis acute Pleural effusion on right [place] Syncope acute Acute on chronic blood loss [...] deficiency anemia refra ctory to iron therapy [facility] Work Phone: Hospital Discharge instructionsAmbulatory Orders* Prior Authorization Referral - ONC/HEM Location: None Selected [facility] Work Phone: Summary Purpose Family History No [...] No May 07, 2021 5:39pm Power of Senior Instructional Designer No May 07 5:39pm Advance Directive Response Recorded Date/ Time Advance Directives No July 24 8:49am Living Will No July 24, 2021 8 :49am Power of Senior Instructional Designer No July 24, 2021 8:49am Advance Directive Response Recorded Date/ Time Advance Directives No July 24 8:49am Living Will No August 06, 2021 12:10pm Power of Senior Instructional Designer No August 06 12:10pm Advance Directive Response Recorded Date/ Time Advance Directives No July 24 8:49am Living Will No August 06, 2021 4:39pm Power of Senior Instructional Designer Yes August 06 4:39pm Advance Directive Response Recorded Date/ Time Name of Medical Power of Senior Instructional Designer Freida Alonzo August 06, 2021 4:39pm Advance Directives No July 24 8:49am Living Will No August 06, 2021 4:39pm Power of Senior Instructional Designer Yes August 06 4:39pm Advance Directive Response Recorded Date/ Time Name of Medical Power of Senior Instructional Designer Freida Cheri August 06, 2021 4:39pm Advance Directives No July 24 8:49am Living Will No October 01, 2021 2:51pm Power of Senior Instructional Designer No October 01 2:51pm Advance Directive Response Recorded Date/ Time Name of Medical Power of Senior Instructional Designer Freida Cheri August 06, 2021 4:39pm Name of Medical Power of Senior Instructional Designer Freida Cheri October 01, 2021 7:57pm Advance Directives No July 24 8:49am Living Will Yes October 01, 2021 7:57pm Power of Senior Instructional Designer Yes October 01 7:57pm Advance Directive Response Recorded Date/ Time Name of Medical Power of Senior Instructional Designer Freida Cheri August 06, 2021 4:39pm Name of Medical Power of Senior Instructional Designer Freida Cheri October 01, 2021 7:57pm Name of Medical Power of Senior Instructional Designer freida [email or web address] October 23, 2021 2:40pm Advance Directives No July 24 8:49am Living Will Yes October 23 2:40pm Power of Senior Instructional Designer Yes October 23 022 2:40pm Advance Directive Response Recorded Date/ Time Name of Medical Power of Senior Instructional Designer Freida Cheri October 01, 2021 7:57pm Name of Medical Power of Senior Instructional Designer freida [email or web address] October 23, 2021 2:40pm Name of Medical Power of Senior Instructional Designer FREIDA CHERI December 08, 2021 5:32pm Advance Directives No July 24 8:49am Living Will Yes December 08 5:32pm Power of Senior Instructional Designer Yes December 08, 2021 5:32pm Advance Directive Response Recorded Date/ Time Name of Medical Power of Senior Instructional Designer Freida Ponce October 01, 2021 7:57pm Name of Medical Power of Senior Instructional Designer freida zackel October 23, 2021 2:40pm Name of Medical Power of Senior Instructional Designer FREIDA CHERI December 08, 2021 8:10pm Advance Directives No July 24 8:49am Living Will Yes December 08 8:10pm Power of Senior Instructional Designer Yes December 08, 2021 8:10pm Advance Directive Response Recorded Date/ Time Name of Medical Power of Senior Instructional Designer Freidajovana Alonzo October 01, 2021 6:57pm Name of Medical Power of Senior Instructional Designer freidajovana roberts October 23, 2021 1:40pm Name of Medical Power of Senior Instructional Designer FREIDA CHERI December 08, 2021 7:10pm Advance Directives No July 24 7:49am Living Will Yes December 08 7:10pm Power of Senior Instructional Designer Yes December 08, 2021 7:10pm Advance Directive Response Recorded Date/ Time Name of Medical Power of Senior Instructional Designer freidajovana roberts October 23, 2021 1:40pm Name of Medical Power of Senior Instructional Designer FREIDA CHERI December 08, 2021 7:10pm Name of Medical Power of Senior Instructional Designer joseph alonzo February 14, 2022 4:33pm Advance Directives No July 24 7:49am Living Will Yes February 14 4:33pm Power of Senior Instructional Designer Yes February 14, 2022 4:33pm Advance Directive Response Recorded Date/ Time Name of Medical Power of Senior Instructional Designer freida roberts October 23, 2021 1:40pm Name of Medical Power of Senior Instructional Designer FREIDA CHERI December 08, 2021 7:10pm Name of Medical Power of Senior Instructional Designer freida cheri February 14, 2022 10:48pm Advance Directives No July 24 7:49am Living Will No February 14 10:48pm Power of Senior Instructional Designer Yes February 14, 2022 10:48pm Advance Directive Response Recorded Date/ Time Name of Medical Power of Senior Instructional Designer FREIDA CHERI December 08, 2021 7:10pm Name of Medical Power of Senior Instructional Designer freida cheri February 14, 2022 10:48pm Advance Directives No July 24 7:49am Living Will No February 14 10:48pm Power of Senior Instructional Designer Yes February 14, 2022 10:48pm Advance Directive Response Recorded Date/ Time Name of Medical Power of Senior Instructional Designer freida cheri February 14, 2022 11:48pm Advance Directives No July 24 8:49am Living Will No February 14 11:48pm Power of Senior Instructional Designer Yes February 14, 2022 11:48pm Advance Directive Response Recorded Date/ Time Advance Directives No July 24 8:49am Living Will No February 14 11:48pm Power of Senior Instructional Designer Yes February 14, 2022 11:48pm Advance Directive Response Recorded Date/ Time Advance Directives No August 08 3:27pm Living Will No August 29, 2022 4 :36pm Power of Senior Instructional Designer No August 29, 2022 4:36pm Advance Directive Response Recorded Date/ Time Name of Medical Power of Senior Instructional Designer November 15, 2022 3:27pm Advance Directives No August 08 3:27pm Living Will No November 15, 2022 3:27pm Power of Senior Instructional Designer Yes October 3:27pm Advance Directive Response Recorded Date/ Time Name of Medical Power of Senior Instructional Designer -Freida Romero November 15, 2022 8:16pm Advance Directives No August 08 3:27pm Living Will No November 15, 2022 8:16pm Power of Senior Instructional Designer Yes October 8:16pm Advance Directive Response Recorded Date/ Time Name of Medical Power of Senior Instructional Designer -Freida Romero November 15, 2022 7:16pm Advance Directives No August 08 2:27pm Living Will No November 15, 2022 7:16pm Power of Senior Instructional Designer Yes October 7:16pm Advance Directive Response Recorded Date/ Time Name of Medical Power of Senior Instructional Designer -Freida Romero November 15, 2022 7:16pm Advance Directives No August 08 2:27pm Living Will No February 28 11:16am Power of Senior Instructional Designer No February 28 11:16am Advance Directive Response Recorded Date/ Time Name of Medical Power of Senior Instructional Designer -Freida Romero November 15, 2022 7:16pm Advance Directives No August 08 2:27pm Living Will No February 28 5:08pm Power of Senior Instructional Designer No February 28 5:08pm Advance Directive Response Recorded Date/ Time Name of Medical Power of Senior Instructional Designer -Freida Romero November 15, 2022 7:16pm Name of Medical Power of Senior Instructional Designer freida March 16, 2023 1:59pm Advance Directives No August 08 2:27pm Living Will Yes March 16 1:59pm Power of Senior Instructional Designer Yes March 16, 2023 1:59pm Advance Directive Response Recorded Date/ Time Name of Medical Power of Senior Instructional Designer freida March 16, 2023 1:59pm Advance Directives No August 08 2:27pm Living Will No March 16 5:33pm Power of Senior Instructional Designer No March 16, 2023 5:33pm Advance Directive Response Recorded Date/ Time Name of Medical Power of Senior Instructional Designer freida March 16, 2023 2:59pm Advance Directives No August 08 3:27pm Living Will No March 16 6:33pm Power of Senior Instructional Designer No March 16, 2023 6:33pm Advance Directive Response Recorded Date/ Time Living Will No March 16 6:33pm Do you have a Healthcare Power of Senior Instructional Designer? No March 16, 2023 6:33pm Living Will No November 14, 2023 9:10pm Do you have a Healthcare Power of Senior Instructional Designer? No November 14, 2023 9:10pm Living Will No April 05 025 10:43pm Do you have a Healthcare Power of Senior Instructional Designer? Yes April 05, 2024 10:43pm Name of Medical Power of Senior Instructional Designer Ray Alonzo April 05, 2024 10:43pm Do you have a Healthcare Power of Senior Instructional Designer? Yes June 20, 2024 8:00pm Name of Medical Power of Senior Instructional Designer ray alonzo June 20, 2024 8:00pm Advance Directives No August 08 3:27pm Advance Directive Response Recorded Date/ Time Living Will No March 16 6:33pm Do you have a Healthcare Power of Senior Instructional Designer? No March 16, 2023 6:33pm Living Will No February 10th, 2 025 10:43pm Do you have a Healthcare Power of Senior Instructional Designer? Yes April 05, 2024 10:43pm Name of Medical Power of Senior Instructional Designer Ray Alonzo April 05, 2024 10:43pm Do you have a Healthcare Power of Senior Instructional Designer? No July 08, 2024 12:44pm Do you have a Healthcare Power of Senior Instructional Designer? Yes June 20, 2024 8:00pm Name of Medical Power of Senior Instructional Designer ray alonzo June 20, 2024 8:00pm Advance [...] ENCEPHALOPATHY ACUTE METABOLIC ENCEPHALOPATHY ACUTE METABOLIC ENCEPHALOPATHY [facility] FU hyperglycemmia ftt adult ftt adult [...] Hypoxia COVID-19 Atherosclerosis of coronary artery of [place] heart without angina pectoris Hyperlipidemia Acute hypoxemic respiratory failure due to COVID-19 Acute alteration in mental status Acute respiratory failure with hypoxia Hypoxemia Pneumonia Pneumonia Asthma Atherosclerosis of coronary artery of [place] heart without angina pectoris Chronic bronchitis History [...] Hypoxia COVID-19 Atherosclerosis of coronary artery of [place] heart without angina pectoris Hyperlipidemia Acute hypoxemic respiratory failure due to COVID-19 Acute alteration in mental status Acute respiratory failure with hypoxia Hypoxemia Pneumonia Pneumonia Asthma Atherosclerosis of coronary artery of [place] heart without angina pectoris Chronic bronchitis History [...] Pneumonia Asthma Atherosclerosis of coronary artery of [place] heart without angina pectoris Chronic bronchitis History [...] Pneumonia Asthma Atherosclerosis of coronary artery of [place] heart without angina pectoris Chronic bronchitis History [...] Pneumonia Asthma Atherosclerosis of coronary artery of [place] heart without angina pectoris Chronic bronchitis History [...] Hypoxia Leukocytosis Atherosclerosis of coronary artery of [place] heart without angina pectoris Essential hypertension Hyperlipidemia [...] Hypoxia Leukocytosis Atherosclerosis of coronary artery of [place] heart without angina pectoris Essential hypertension Hyperlipidemia [...] Hypoxia Leukocytosis Atherosclerosis of coronary artery of [place] heart without angina pectoris Essential hypertension Hyperlipidemia [...] H FU ALSO ORDERS FROM DR ZAPATA [facility] Reason for Visit Iron deficiency anem ia Swelling of lower extremity Hypoxia Leukocytosis Pneumonia Atherosclerosis of coronary artery of [place] heart without angina pectoris Essential hypertension Hyperlipidemia [...] [facility] MED ONC [id number] Reason for Visit Hypoxia Leukocytosis Pneumonia Atherosclerosis of coronary artery of [place] heart without angina pectoris Essential hypertension Hyperlipidemia [...] FROM DR [facility]ATA [facility] [id number] [facility] BILATERAL PNEUMONIA Reason [...] FROM DR Z[facility]ATA [facility] [id number] [facility] BILATERAL PNEUMONIA BILATERAL [...] FROM DR ZAPATA [facility] [id number] [facility]C BILATERAL PNEUMONIA BILATERAL [...] FROM DR ZAPATA [facility] [id number] [facility] ONC BILATERAL PNEUMONIA BILATERAL [...] in remission Atherosclerosis of coronary artery of [place] heart without angina pectoris Chronic hypoxemic respiratory [...] in remission Atherosclerosis of coronary artery of [place] heart without angina pectoris Chronic hypoxemic respiratory failure COPD (chronic obstructive pulmonary disease) Essential hypertension GI bleed Iron deficiency anemia Obesity Type 2 diabetes mellitus Anemia Iron deficiency anemia 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 Atherosclerosis of coronary artery of [place] heart without angina pectoris Essential hypertension Hyperlipidemia [...] in remission Atherosclerosis of coronary artery of [place] heart without angina pectoris Chronic hypoxemic respiratory failure COPD (chronic obstructive pulmonary disease) Essential hypertension GI bleed Iron deficiency anemia Obesity Type 2 diabetes mellitus Anemia Iron deficiency anemia 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 Atherosclerosis of coronary artery of [place] heart without angina pectoris Essential hypertension Hyperlipidemia [...] Heart failure Atherosclerosis of coronary artery of [place] heart without angina pectoris Chronic kidney disease [...] Heart failure Atherosclerosis of coronary artery of [place] heart without angina pectoris Chronic kidney disease [...] Heart failure Atherosclerosis of coronary artery of [place] heart without angina pectoris Chronic kidney disease [...] Heart failure Atherosclerosis of coronary artery of [place] heart without angina pectoris Chronic kidney disease [...] BLEED SEVERE ACUTE ON CHRONIC ANEMIA/GI BLEED [facility] Discharge FU Reason for Visit Anemia Iron [...] BLEED SEVERE ACUTE ON CHRONIC ANEMIA/GI BLEED [facility] Discharge FU [facility] Reason for Visit [...] BLEED SEVERE ACUTE ON CHRONIC ANEMIA/GI BLEED [facility] Discharge FU [facility] LABWORK 1 M [...] ejection fraction) Atherosclerosis of coronary artery of [place] heart without angina pectoris Essential hypertension History [...] BLEED SEVERE ACUTE ON CHRONIC ANEMIA/GI BLEED [facility] Discharge FU [facility] LABWORK 1 M [...] M March 03, 2024 9: 52am 5 [facility] March 05, 2024 1 2:53pm 6 M [...] 2:1 4pm Chronic hypoxemic respiratory failure [facility] 2024 2:14pm COPD (chronic obstructive pulmonary [...] 2024 2:1 4pm Chronic hypoxemic respiratory failure [facility] 2024 2:14pm COPD (chronic obstructive pulmonary dise [...] 2024 2:1 4pm Chronic hypoxemic respiratory failure [facility] 2024 2:14pm COPD (chronic obstructive pulmonary dise [...] and content) DATE CREATED AUTHOR 01/29/2019 [facility] DATE CREATED AUTHOR AUTHOR'S ORGANIZ ATION 03/23/2023 [facility] DATE CREATED AUTHOR AUTHOR'S ORGANIZ ATION 08/16/2024 [facility] Goals (unrecognized section and content) Goals may [...] Greenberg , Family Provider Active DANNIELLE PIÑA MANAGER WELDING-C Primary Care Provider Active Team Status: Inactive Member Role Status Dates DANNIELLE PIÑA NP-C Primary Care Provider, Referring Provider Active Dr. Tobi Zapata MD Attending Provider Active Team Status: Active Member Role Status Dates DANNIELLE PIÑA MANAGER WELDING-C Primary Care Provider Active Dr. Margie Joy DO Emergency Provider Active Dr. Janice Mackey MD Admit Provider, Attending Provider, Other Provider Active Team Status: Active Member Role Status Dates DANNIELLE PIÑA MANAGER WELDING-C Primary Care Provider Active Dr. Margie Joy DO Emergency Provider Active Dr. Janice Mackey MD Admit Provider, Other Provider Active Dr. Suze Rosas MD Attending Provider, Other Provider Active Team Status: Active Member Role Status Meagan PIÑA MANAGER WELDING-C Primary Care Provider Active Dr. Margie Joy , Emergency Provider Active Dr. Janice Mackey MD Admit Provider, Other Provider Active Dr. Suze Rosas MD Other Provider Active Dr. Jordan Ortiz MD Attending Provider Active Team Status: Active Member Role Status Meagan PIÑA , MANAGER WELDING-C Primary Care Provider Active Dr. Margie Joy DO Emergency Provider Active Dr. Janice Mackey MD Admit Provider, Other Provider Active Dr. Jordan Ortiz MD Referring Provider, Other Provid er Active Dr. Suze Rosas MD Other Provider Active Dr. Khai Galeana DO Attending Provider Active Team Status: Active Member Role Status Meagan PIÑA , MANAGER WELDING-C Primary Care Provider Active Dr. Khai Galeana DO Attending Provider Active Team Status: Active Member Role Status Meagan PIÑA , MANAGER WELDING-C Primary Care Provider Active Dr. Margie Joy DO Emergency Provider Active Dr. Janice Mackey MD Admit Provider, Other Provider Active Dr. Jordan Ortiz MD Attending Provider, Other Provid er Active Dr. Suze Rosas MD Other Provider Active Team Status: Inactive Member Role Status Meagan PIÑA , MANAGER WELDING-C Primary Care Provider, Referring Provider Active Dr. Khai Galeana , Attending Provider Active Team Status: Inactive Member Role Status Meagan PIÑA , MANAGER WELDING-C Primary Care Provider, Referring Provider Active Dr. Anthony Singleton DO Attending Provider Active Team Status: Active Member Role Status Meagan PIÑA , MANAGER WELDING-C Primary Care Provider Active Dr. Faisal Walker MD Emergency Provider Active Dr. Tobi Shannon MD Admit Provider, Attending Provider, Other Provider Active Team Status: Active Member Role Status Meagan PIÑA , MANAGER WELDING-C Primary Care Provider Active Dr. Faisal Walker MD Emergency Provider Active Dr. Tobi Shannon MD Admit Provider, Referring Provider, Other Provider Active Dr. Suze Rosas MD Other Provider Active Dr. Alexi Roblero MD Attending Provider, Other Provid er Active Dr. Anthony Singleton , Other Provider Active Dr. Rambo Bruner MD Other Provider Active Dr. Afshin Pablo MD Other Provider Active More Pulido MANAGER WELDING, MANAGER WELDING-C Other Provider Active Team Status: Active Member Role Status Meagan PIÑA , MANAGER WELDING-C Primary Care Provider Active Dr. Faisal Walker MD Emergency Provider Active Dr. Tobi Shannon MD Admit Provider, Other Provide r Active Dr. Suze Rosas MD Attending Provider, Other Provider Active Dr. Alexi Roblero MD Other Provider Active Dr. Anthony Singleton DO Other Provider Active Dr. Rambo Bruner MD Other Provider Active Dr. Afshin Pablo MD Other Provider Active More Pulido MANAGER WELDING, MANAGER WELDING-C Other Provider Active Team Status: Active Member Role Status Meagan PIÑA , MANAGER WELDING-C Primary Care Provider Active Dr. Faisal Walker MD Emergency Provider Active Dr. Tobi Shannon MD Admit Provider, Other Provide r Active Dr. Alexi Roblero MD Other Provider Active Dr. Anthony Singleton DO Attending Provider, Other Provide r Active Dr. Rambo Bruner MD Other Provider Active Dr. Afshin Pablo MD Other Provider Active More Pulido NP, MANAGER WELDING-C Other Provider Active Dr. Jordan Ortiz MD Other Provider Active Dr. Suze Rosas MD Other Provider Active Team Status: Active Member Role Status Meagan PIÑA , MANAGER WELDING-C Primary Care Provider Active Dr. Faisal Walker MD Emergency Provider Active Dr. Tobi Shannon MD Admit Provider, Other Provide r Active Dr. Alexi Roblero MD Other Provider Active Dr. Anthony Singleton DO Other Provider Active Dr. Rambo Bruner MD Other Provider Active Dr. Afshin Pablo MD Other Provider Active More Pulido NP, MANAGER WELDING-C Other Provider Active Dr. Jordan Ortiz MD Attending Provider, Other Provid er Active Dr. Suze Rosas MD Other Provider Active Team Status: Active Member Role Status Meagan PIÑA , MANAGER WELDING-C Primary Care Provider Active Dr. Tobi Zapata MD Attending Provider, Referring Pro vider Active Team Status: Inactive Member Role Status Meagan PIÑA , MANAGER WELDING-C Primary Care Provider Active Dr. Margie Joy DO Emergency Provider Active Dr. Janice Mackey MD Admit Provider, Other Provider Active Dr. Jordan Ortiz MD Attending Provider Active Dr. Suze Rosas MD Other Provider Active Team Status: Inactive Member Role Status Dates DANNIELLE ONEALMONS , MANAGER WELDING-C Primary Care Provider Active Dr. Khai Galeana , Attending Provider Active Team Status: Inactive Member Role Status Dates DANNIELLE PIÑA , MANAGER WELDING-C Primary Care Provider, Attending Provider Active Team Status: Inactive Member Role Status Dates DANNIELLE ONEALMONS , MANAGER WELDING-C Primary Care Provider Active Dr. Faisal Walker MD Emergency Provider Active Dr. Tobi Shannon MD Admit Provider, Other Provide r Active Dr. Alexi Roblero MD Other Provider Active Dr. Anthony Singleton DO Other Provider Active Dr. Rambo Bruner MD Other Provider Active Dr. Afshin Pablo MD Other Provider Active More Pulido MANAGER WELDING, MANAGER WELDING-C Other Provider Active Dr. Jordan Ortiz MD Attending Provider Active Dr. Suze Rosas MD Other Provider Active Team Status: Active Member Role Status Dates DANNIELLE ONEALMONS , MANAGER WELDING-C Primary Care Provider Active Dr. Anthony Singleton DO Attending Provider, Other Provide r Active Team Status: Inactive Member Role Status Dates DANNIELLE BRYANS , MANAGER WELDING-C Primary Care Provider Active Dr. Anthony Singleton DO Attending Provider Active Team Status: Active Member Role Status Dates DANNIELLE BRYANS , MANAGER WELDING-C Primary Care Provider Active Dr. Anthony Singleton DO Attending Provider Active Team Status: Inactive Member Role Status Dates DANNIELLE BRYANS , MANAGER WELDING-C Primary Care Provider, Referring Provider Active More Pulido MANAGER WELDING, MANAGER WELDING-C Attending Provider Active Team Status: Inactive Member Role Status Dates DANNIELLE PIÑA , MANAGER WELDING-C Primary Care Provid er, Attending Provider, Referring Provider Active Team Status: Active Member Role Status Dates DANNIELLE ONEALMONS , MANAGER WELDING-C Primary Care Provider Active Dr. Anthony Singleton DO Attending Provider, Referring Provider, Other Provider Active Team Status: Inactive Member Role Status Dates DANNIELLE ONEALMONS , MANAGER WELDING-C Primary Care Provider Active Dr. Khai Galeana DO Attending Provider, Referring Provider Active Dr. Nate Bearden MD Other Provider Active Team Status: Active Member Role Status Dates Dr. Mario Greenberg , Family Provider Active Dr. Donna Will MD Primary Care Provider Active Team Status: Inactive Member Role Status Dates DANNIELLE PIÑA , MANAGER WELDING-C Primary Care Provider Active Dr. Donna Will MD Attending Provider Active Team Status: Inactive Member Role Status Dates DANNIELLE PIÑA , MANAGER WELDING-C Primary Care Provider, Referring Provider Active FRIEN Active Dr. Khai Galeana DO Attending Provider Active Team Status: Inactive Member Role Status Dates DANNIELLE PIÑA , MANAGER WELDING-C Primary Care Provider Active Dr. Nate Bearden MD Attending Provider, Referr ing Provider Active Team Status: Inactive Member Role Status Dates Dr. Donna Wlil MD Primary Care Provider Active Adam Freeman MD Emergency Provider Active Team Status: Active Member Role Status Dates DANNIELLE IPÑA MANAGER WELDING-C Primary Care Provider Active Dr. Khai Galeana DO Attending Provider, Referring Provider Active Dr. Tobi Zapata MD Other Provider Active Team Status: Inactive Member Role Status Dates DANNIELLE PIÑA , MANAGER WELDING-C Referring Provider Active Dr. Norm Mello MD Attending Provider Active Dr. Donna Will MD Primary Care Provider Active Team Status: Inactive Member Role Status Dates Dr. Tobi Zapata MD Attending Provider Active Dr. Donna Will MD Primary Care Provider, Referri ng Provider Active Team Status: Inactive Member Role Status Dates Dr. Donna Will MD Primary Care Provider, Referri ng Provider Active Martha Dodson MANAGER WELDING, MANAGER WELDING-C Attending Provider Active Team Status: Inactive Member [...] Member Role Status Dates DANNIELLE PIÑA , MANAGER WELDING-C Primary Care Provider Active Dr. Khai Galeana [...] Provider, Referri ng Provider Active More Pulido MANAGER WELDING, MANAGER WELDING-C Attending Provider Active Team Status: Inactive Member Role Status Dates More Pulido MANAGER WELDING, MANAGER WELDING-C Attending Provider Active Dr. Donna Will MD [...] Status: Active Member Role Status Dates Dr. Donan Will MD Primary Care Provider Active Dr. [...] Provider, Referri ng Provider Active Jennifer Galdamez MANAGER WELDING, MANAGER WELDING-C Attending Provider Active Team Status: Active Member Role Status Dates Dr. Donna Will MD Primary Care Provider Active Jennifer Galdamez MANAGER WELDING, MANAGER WELDING-C Attending Provider Active Team Status: Inactive Member Role Status Dates Dr. Donna Will MD Primary Care Provider Active Jennifer Galdamez MANAGER WELDING, MANAGER WELDING-C Attending Provider Active Team Status: Active Member [...] Mendoza DO Other Provider Active Start: April 05, 2024 End: April 08, 2024 Dr. sIaias Granados MD Other Provider Active Start: April [...] End: April 27, 2024 Martha Dodson NP, MANAGER WELDING-C Attending Provider Active Start: April 27, 2024 [...] Active Start: June 22, 2024 Dr. Jordan Oritz MD Other Provider Active Star t: June [...] Star t: June 22, 2024 Dr. Isaias Grandaos MD Other Provider Active Start: June 22, [...] Active Member Role Status Dates DANNIELLE PIÑA MANAGER WELDING-C Primary Care Provider Active Start: July 20, [...] BE BASED ON THE PRIMARY CLINICAL RECORDS. [facility] [employer] [facility]. provides no warranty or guarantee of the accuracy or completeness of information in this document.
--- OUTSIDE RECORDS SUMMARY | 2024-08-21 12:34 | XMS RPT_ITS | CCD ---
Author Organization [facility] Care Team Providers Care Director Occupational Name Role Phone Dr. Donna Will Primary [...] Other Provider Dr. Clive Sharp [facility] Arciniega Attending Provider Dr. Norm Mello Attending Provider Oliver SALESPERSON JEWELRY, SALESPERSON JEWELRY-C Luz Attending Provider Dr. Marco Hoffman Emergency Provider Francie[place]arkesvillejaime, Dr. Arciniega Admit Provider Dr. Jordan Ortiz Other Provider Unavailable Dr. Wilberto Villafuerte Other Provider Dr. Anthony Singleton Attending Provider Dr. Silas Sinha Chi Referring Provider Dr. Jordan Ortiz Attending Provider Unavailable Dr. Wilberto Huerta Attending Provider [phone] Jordan Ortiz Referring Provider Unavailable Dr. Khai Galeana Attending Provider Dr. Wilberto Huerta Other Provider TAMICA Tay Attending Provider [phone] Dr. Khai Galeana Referring Provider [phone] Beatriz Osorio Attending Provider Unavailable Ashok SALESPERSON JEWELRY, SALESPERSON JEWELRY-C More Attending Provider Dr. Farida Todd Emergency Provider Dr. Jordan Ortiz Admit Provider Unavailable Dr. Donna Will Primary Care Provider Dr. Donna Will Attending Provider [phone] Dr. Donna Will Referring Provider [phone] Dr. Jordan Ortiz Attending Provider Unavailable Dr. Jordan Ortiz Other Provider Unavailable Dr. Wilberto Huerta Attending Provider [phone] Donna Will Primary Care Provider Dr. Donna Will Referring Provider [phone] Dr. Donna Will Attending Provider Dr. Hayden Morley Emergency Provider Dr. Janice Mackey Admit Provider Dr. Janice Mackey Other Provider Dr. Nadira Ricks Attending Provider Dr. Nadira Ricks Other Provider Dr. Donna Will Primary Care Provider Dr. Donna Will Referring Provider [phone] Ashok SALESPERSON JEWELRY, SALESPERSON JEWELRY-C More Attending Provider [phone] Dr. Wilberto Huerta Referring Provider YANELIS Mayfield Attending Provider Piña, Dannielle [facility]obi Bocanegra Attending Provider YANELIS Mayfield Referring Provider PIÑA, SALESPERSON JEWELRY-C DANNIELLE Primary Care Provider PIÑA, SALESPERSON JEWELRY-C DANNIELLE Referring Provider Dr. Marco Hoffman Emergency Provider Dr. Mario Dewitt Admit Provider Dr. Mario Dewitt Attending Provider Dr. Mario Dewitt Other Provider Dr. Khai Galeana Other Provider Dr. Tobi Shannon Attending Provider Dr. Khai Galeana Attending Provider Dr. Suze Rosas Other Provider Dr. Suze Rosas Attending Provider Dr. Donna Will Primary Care Provider Dr. Donna Will Referring Provider [phone] Ashok SALESPERSON JEWELRY, SALESPERSON JEWELRY-C More Attending Provider Dr. Suze Rosas Attending [...] Attending Provider YANELIS Mayfield Referring Provider PIÑA, SALESPERSON JEWELRY-C DANNIELLE Primary Care Provider PIÑA, SALESPERSON JEWELRY-C DANNIELLE Referring Provider [phone] Ashok SALESPERSON JEWELRY, SALESPERSON JEWELRY-C More Attending Provider [phone] Dr. Marco Hoffman Emergency Provider Dr. Mario [...] Angel, Dr. Ortega Attending Provider Unavailable CARO, SALESPERSON JEWELRY-C DANNIELLE Primary Care Provider Dr. Janice Mackey [...] Dr. Afshin Pablo Other Provider Unavailab Garg SALESPERSON JEWELRY, SALESPERSON JEWELRY-C More Other Provider Dr. Anthony Singleton Attending [...] Dr. Jordan Ortiz Attending Provider Unavailable CARO, SALESPERSON JEWELRY-C DANNIELLE Referring Provider Dr. Tobi Zapata Attending Provider Dr. Faisal Walker Emergency Provider Mirtha, Dr. Tobi Desaiit Provider Mirtha, Dr. Britton Attending Provider Dr. Tobi Shannon Other Provider Mirtha, Dr. Britton Referring Provider Dr. Alexi Roblero Attending Provider [phone] Alexi Roblero Other Provider Dr. Anthony Singleton Other Provider Dr. Rambo Bruner Other Provider 1([phone] Afshin Pablo Other Provider Unavail higinio Pulido SALESPERSON JEWELRY, SALESPERSON JEWELRY-C More Other Provider Dr. Anthony Singleton Attending Provider [phone] CARO SALESPERSON JEWELRY-C DANNIELLE Primary Care Provider CARO SALESPERSON JEWELRY-C DANNIELLE Referring Provider Dr. Tobi Zapata Attending [...] Afshin Pablo Other Provider Unavailab higinio Pulido SALESPERSON JEWELRY, SALESPERSON JEWELRY-C More Other Provider Dr. Suze Rosas Attending Provider Dr. Anthony Singleton Attending Provider Dr. Jordan Ortiz Other Provider Unavailable Dr. Jordan Ortiz Attending Provider Unavailable PIÑA, SALESPERSON JEWELRY-C DANNIELLE Primary Care Provider PIÑA, SALESPERSON JEWELRY-C DANNIELLE Referring Provider [phone] Dr. Tobi Zapata Attending Provider Ashok SALESPERSON JEWELRY, SALESPERSON JEWELRY-C More Attending Provider PIÑA, SALESPERSON JEWELRY-C ADNNIELLE Primary Care Provider Dr. Anthony Singleton Attending Provider Dr. Anthony Singleton Referring Provider Dr. Anthony Singleton Other Provider Dr. Khai Galeana Attending Provider PIÑA, SALESPERSON JEWELRY-C DANNIELLE Primary Care Provider Dr. Anthony Singleton Attending Provider PIÑA, SALESPERSON JEWELRY-C DANNIELLE Referring Provider Dr. Tobi Zapata Attending Provider Dr. Donna Will Attending Provider PIÑA, SALESPERSON JEWELRY-C DANNIELLE Primary Care Provider PIÑA, SALESPERSON JEWELRY-C DANNIELLE Referring Provider Dr. Khai Galeana Attending Provider Dr. Donna Will Primary Care Provider Dr. Donna Will Referring Provider [phone] Dr. Norm Mello Attending Provider West SALESPERSON JEWELRY, SALESPERSON JEWELRY-C Martha Attending Provider [phone] Dr. Jj [...] Unavailable Dr. Donna Will Attending Provider Ashok SALESPERSON JEWELRY, SALESPERSON JEWELRY-C More Attending Provider [phone] Dr. Donna [...] Attending Provider Dr. Donna Will Referring Provider [phone] Dr. Tobi Zapata Attending Provider Ashok SALESPERSON JEWELRY, SALESPERSON JEWELRY-C More Attending Provider Dr. Dwain Nowak Emergency [...] Care Provider Dr. Donna Will Referring Provider [phone] Dr. Tobi Zapata Attending Provider Dr. Jordan Ortiz Attending Provider Unavailable Dr. Jordan Ortiz Other Provider Unavailable Dr. Eva Marie Emergency Provider Dr. Nadira Ricks Admit Provider Dr. Nadira Ricks Other Provider Dr. Isaias Granados Other Provider Dr. Alexi Roblero Other Provider Dr. Anthony Singleton Attending Provider Dr. Anthony Singleton Other Provider Dr. Carlito Cárdenas Other Provider Dr. Claudine Andrade Other Provider [phone] Dr. Marvin Coats Other Provider Dr. Elizabeth Wilson Other Provider Dr. Aric Leon Other Provider Unavailable Dr. Rajeev Dalton Other Provider Dr. Roberto Escalante Other Provider Dr. Madi Tavarez Other Provider Dr. Zhang Concepcion Other Provider Aron, Dr. Duffy Referring Provider Aron, Dr. Duffy Other Provider Aron, Dr. Duffy Attending Provider Dr. Norm Mello Referring Provider Lissett, Dr. Ridley Attending Provider [phone] GERA Castro-C Bethany Purcell Attending Provider Dr. Donna Will Attending Provider Dr. Donna Will Primary Care Provider Dr. Donna Will Referring Provider Dr. Tobi Zapata Attending Provider Ashok SALESPERSON JEWELRY, SALESPERSON JEWELRY-C More Attending Provider Dr. Dwain Nowak Emergency [...] Provider Unavailable Dr. Rajeev Dalton Other Provider [phone] Roberto Escalante Other Provider Dr. Madi Tavarez Other Provider Dr. Zhang Concepcion Other Provider [phone] Clive Sharp Referring Provider Dr. Clive Sharp Other Provider Dr. Clive Sharp Attending Provider Dr. Norm Mello Referring Provider Lissett, Dr. Ridley Attending Provider Gloria, GERA-C Bethany Purcell Attending Provider Dr. Donna Will Attending Provider Rudolph SALESPERSON JEWELRY, SALESPERSON JEWELRY-C Jennifer Attending Provider Dr. Donna Will Primary Care Provider Dr. Donna Will Referring Provider Dr. Tobi Zapata Attending Provider Benny, Dr. Britton Referring Provider Benny, Dr. Britton Other Provider Dr. Donna Will MD Primary Care Provider Dr. Donna Will MD Attending Provider Suman TEIXEIRA, Dr. Thompson Referring Provider Gumaro SALESPERSON JEWELRY-CGris Attending Provider Gumaro SALESPERSON JEWELRY-CGris Referring Provider Elizabeth Mayfield Attending Provider Higinio [place], Dr. Ly Emergency Provider [phone] de Americo [place], Dr. Ortega Admit Provider Unavail able Mendoza DO, Dr. Ortega Other Provider Unavail able Darwin TEIXEIRA, Dr. Esparza Other Provider Milana TEIXEIRA, Dr. Peck Other Provider Osbaldo TEIXEIRA, Dr. Truong Other Provider Mani [place], Dr. Cruz Other Provider Clinton TEIXEIRA, Dr. Jordan Serra Other Provider [phone] Mike TEIXEIRA, Dr. Dsouza Other Provider Avi TEIXEIRA, Dr. Esteban Other Provider Raymond TEIXEIRA, Dr. Chow Other Provider Pauly TEIXEIRA, Dr. Wong Other Provider Lyle TEIXEIRA, Dr. Cochran Other Provider Dr. Kashif Berg MD Other Provider Dr. Elizabeth Wilson MD Other Provider Dr. Aric Leon MD [facility], Dr. Burrell Other Provider Alberta TEIXEIRA, Dr. Meyer Other Provider Dr. Rajeev Dalton MD Other Provider Ava TEIXEIRA, Dr. Mejia Other Provider Dr. Nikolai Keller DO Other Provider Aaliyah TEIXEIRA, Dr. Crabtree Other Provider Jodi TEIXEIRA, Dr. Urbano Other Provider [phone] Austin [place], Dr. Dc Other Provider Corby TEIXEIRA, Dr. Barraza Other Provider Jamey TEIXEIRA, Dr. Holcomb Other Provider Jaleesa TEIXEIRA, Dr. Huang Paul Attending Provider Mani [place], Dr. Cruz Attending Provider Jaleesa TEIXEIRA, Dr. Huang Paul Referring Provider Jaleesa TEIXEIRA, Dr. Huang Paul Other Provider Lissett [place], Dr. Ridley Attending Provider West SALESPERSON JEWELRY-C, Martha Attending Provider CARO SALESPERSON JEWELRY-C, DANNIELLE Primary Care Provider Benny TEIXEIRA, Dr. [...] TEIXEIRA, Dr. Thompson Primary Care Provider [phone] Suman TEIXEIRA, Dr. Thompson Referring Provider Gumaro SALESPERSON JEWELRY-C, Gris Dominguez Attending Provider Macho TEIXEIRA, Dr. Akins Referring Provider Suman TEIXEIRA, Dr. Thompson Attending Provider Yasmin [place], Dr. Lara Emergency Provider Yasmin [place], Dr. Lara Attending Provider Gumaro BOSS-CGris Referring Provider Suman TEIXEIRA, Dr. Thompson Primary Care Provider Suman TEIXEIRA, Dr. Thompson Referring Provider Noy TEIXEIRA, Dr. Ladd Attending Provider Noy TEIXEIRA, Dr. Ladd Referring Provider CARO SALESPERSON JEWELRY-C, SEABROOK Primary Care Provider Benny TEIXEIRA, Dr. Britton Attending Provider Benny TEIXEIRA, Dr. Britton Referring Provider Benny TEIXEIRA, Dr. Britton Attending Provider Benny TEIXEIRA, Dr. Britton Referring Provider CARO SALESPERSON JEWELRY-C, SEABROOK Primary Care Provider Donna Will Primary Care [...] Nikolai Consulting Unavailable Fischer, Sujoy Consulting Unavailable Cokato, Soleyah Consulting Unavailable Fernstrom, Dao Consulting Unavailable [...] Nikolai Consulting Unavailable Fischer, Sujoy Consulting Unavailable Cokato, Soleyah Consulting Unavailable Justinnstrom, Dao Consulting Unavailable [...] Unavailable Suman, Donna Primary Care Unavailable West SALESPERSON JEWELRY, Martha Attending Unavailable Suman, Donna Primary Care [...] Unavailable Suman, Donna Primary Care Unavailable Ashok SALESPERSON JEWELRY, More Attending Unavailable Suman, Donna Referring Unavailable [...] Attending Unavailable Suman, Donna Referring Unavailable Suman, Dnona Primary Care Unavailable Donna Will Attending Unavailable Suman, Donna Primary Care Unavailable Suman, Donna Referring Unavailable Suman, Donna Primary Care Unavailable Tobi Zapata Attending Unavailable Ashok SALESPERSON JEWELRY, More Attending Unavailable Suman, Donna Primary Care Unavailable Ashok SALESPERSON JEWELRY, More Referring Unavailable Donna Will Primary Care Unavailable Tobi Zapata Referring Unavailable Tobi Zapata Attending Unavailable Allergies Allergy Classification Reported Allergen(s) Allergy Type Date of Onset Reaction(s) Facility (5 sources) Famotidine Drug Allergy 2 Diarrhea [facility] Work Phone: (20 sources) levoFLOXacin Drug Allergy 2 dizziness, diarrhea, dizziness, GI upset, weakness [facility] (1 source) levoFLOXacin Drug Allergy 5 [facility] Repository Medications Current Medications Medication Drug [...] extended release oral tablet (10 sources) Uncompetitive M-fdoxqa-U-aspartate Receptor Antagonist, Sigma-1 Agonist Start: 11-11-2023 End: 03-03-2024 docusate sodium 50 mg / sennosides, longterm 8.6 mg oral tablet (20 sources) Start: [...] mL by inhalation every six hours Ipratropium [place] Discontinued 2.5 ML INHALATION EVERY 6 HOURS [...] 21, 2021 11:35am December 08, 2021 7:17pm Multivitamin,Cm-Gtwc-Dubciaj s (20 sources) Start: 09-11-2013 End: 09-13-2019 take 1 tablet by mouth once daily Multivitamin,Tm-Pzat-Mrlkhwnw Discontinued 1 TABLET PO DAILY September 11, 2013 1:21pm September 13, 2019 1:47pm Start: 09-11-2013 End: 09-13-2019 take 1 tablet by mouth once daily Multivitamin,Ei-Ukmr-Wtyeoedf Discontinu ed 1 TABLET PO DAILY September 10, 2013 11:00pm September 13, 2019 12:47pm Start: 09-11-2013 End: 09-13-2019 take 1 tablet by mouth once daily Multivitamin,Iz-Mddf-Yzwmesjs Discontinu ed 1 TABLET PO DAILY September [...] ml riTUXimab 10 mg/ml injection (20 sources) LV24-ixduzgbs Cytolytic Antibody Start: 09-28-2019 End: 03-25-2021 rituximab [...] Coronary arteriosclerosis; Translations: [Atherosclerotic heart disease of [place] coronary artery without angina pectoris] Chronic Deficiency [...] Respiratory failure; insufficiency; arrest (adult) (20 sources) Rnmny-jj-oxaxdnn respiratory failure; Translations: [Acute and chronic respiratory [...] GI hemoglobin IA Ql (Stl) Positive Abnormal [facility] Anion gap in Serum or Plasma Ordered By: Wilberto Villafuerte on 07-21-2024 Anion gap [Moles/Vol] 7 mmol/L 5-15 [facility] BUN/creatinine ratioOrdered By: Wilberto Villafuerte on 07-21-2024 Urea nitrogen/Creatinine [Mass ratio] 25.7 mg/mg High 10-20 [facility] Carbon dioxide, total [Moles /volume] in Central venous bloodOrdered By: Wilberto Villafuerte on 07-21-2024 CO2 [Moles/Vol] 31.9 mmol/L 21.0-32.0 [facility] Chloride assayOrdered By: Anh Villafuerte on 07-21-2024 Chloride [Moles/Vol] 105 mmol/L 98-108 [facility] Erythrocyte distribution wid th ratioOrdered By: Wilberto Villafuerte on 07-21-2024 Erythrocyte distribution width (RBC) [Ratio] 20.5 % High 11.6-14.6 [facility] Erythrocyte distribution wid th standard deviationOrdered By: Wilberto Villafuerte on 07-21-2024 Erythrocyte distribution width (RBC) [Ratio] 75.2 fl High 35.1-43.9 [facility] Glomerular filtration rate ( GFR) estimation/1.73 sq m using serum, plasma, or whole bOrdered By: Wilberto Villafuerte on 07-21-2024 GFR/1.73 sq M.predicted among non-blacks MDRD (S/P/Bld) [Vol rate/Area] 59 mL/min/{1.73_m2} Low >60 [facility] Hematocrit Auto (Bld) [Volum e fraction]Ordered By: Wilberto Villafuerte on 07-21-2024 Hematocrit (Bld) [Volume fraction] 23.3 % Low 40-54 [facility] Hemoglobin measurementOrdere d By: Wilberto Villafuerte on 07-21-2024 Hemoglobin (Bld) [Mass/Vol] 7.0 g/dL Low 13.0-16.5 [facility] MCV (mean corpuscular volume ) determinationOrdered By: Wilberto Villafuerte on 07-21-2024 MCV (RBC) [Entitic vol] 100.9 fL High 80-94 [facility] Mean corpuscular hemoglobin (MCH) determinationOrdered By: Wilberto Villafuerte on 07-21-2024 MCH (RBC) [Entitic mass] 30.3 pg 27.0-32.0 [facility] Platelet countOrdered By: Anh Villafuerte on 07-21-2024 Platelets (Bld) [#/Vol] 235 10*3/uL 150-450 [facility] Potassium measurement (mass/ volume)Ordered By: Wilberto Villafuerte on 07-21-2024 Potassium (Unsp spec) [Mass/Vol] 4.9 mmol/L 3.3-5.1 [facility] RBC Auto (Bld) [#/Vol]Ordere d By: Wilberto Villafuerte on 07-21-2024 RBC (Bld) [#/Vol] 2.31 10*6/uL Low 4.6-6.2 [facility] Serum creatinine measurement (mass/volume)Ordered By: Wilberto Villafuerte on 07-21-2024 Creatinine [Mass/Vol] 1.27 mg/dL High 0.70-1.20 [facility] Serum glucose measurement (m ass/volume)Ordered By: Wilberto Villafuerte on 07-21-2024 Glucose [Mass/Vol] 178 mg/dL High 70-99 [facility] Serum or plasma calcium yocasta urement (mass/volume)Ordered By: Wilberto Villafuerte on 07-21-2024 Calcium [Mass/Vol] 8.7 mg/dL 7.6-11.0 [facility] Serum or plasma urea nitroge n measurement (mass/volume)Ordered By: Wilberto Villafuerte on 07-21-2024 Urea nitrogen [Mass/Vol] 33 mg/dL High 4-19 [facility] Sodium levelOrdered By: Jacob Villafuerte on 07-21-2024 Sodium [Moles/Vol] 144 mmol/L 133-145 [facility] Trough vancomycin levelOrder ed By: Wilberto Villafuerte on 07-21-2024 Vancomycin trough [Mass/Vol] 16.3 ug/mL High 5.0-15.0 [facility] White blood cell (WBC) count Ordered By: Wilberto Villafuerte on 07-21-2024 WBC (Bld) [#/Vol] 8.4 10*3/uL 4.4-11.0 [facility] Anion gap in Serum or Plasma Ordered By: Martha Dodson on 07-20-2024 Anion gap [Moles/Vol] 9 mmol/L 5-15 [facility] BUN/creatinine ratioOrdered By: Martha Dodson on 07-20-2024 Urea nitrogen/Creatinine [Mass ratio] 22.9 mg/mg High 10-20 [facility] Bilirubin, totalOrdered By: Martha Dodson on 07-20-2024 Bilirubin [Mass/Vol] 0.31 mg/dL 0.00-1.30 [facility] Carbon dioxide, total [Moles /volume] in Central venous bloodOrdered By: Martha Dodson on 07-20-2024 CO2 [Moles/Vol] 30.8 mmol/L 21.0-32.0 [facility] Chloride assayOrdered By: Dave Dodson on 07-20-2024 Chloride [Moles/Vol] 104 mmol/L 98-108 [facility] Glomerular filtration rate ( GFR) estimation/1.73 sq m using serum, plasma, or whole bOrdered By: Martha Dodson on 07-20-2024 GFR/1.73 sq M.predicted among non-blacks MDRD (S/P/Bld) [Vol rate/Area] 50 mL/min/{1.73_m2} Low >60 [facility] Iron measurement (mass/mass) Ordered By: Martha Dodson on 07-20-2024 Iron (Unsp spec) [Mass/Mass] 37 ug/dL Low 65-175 [facility] No Panel InformationOrdered By: Martha Dodson on 07-20-2024 14 U/L <38 [facility] 183 ug/dL Low 228-428 [facility] Potassium measurement (mass/ volume)Ordered By: Martha Dodson on 07-20-2024 Potassium (Unsp spec) [Mass/Vol] 4.6 mmol/L 3.3-5.1 [facility] Serum creatinine measurement (mass/volume)Ordered By: Martha Dodson on 07-20-2024 Creatinine [Mass/Vol] 1.46 mg/dL High 0.70-1.20 [facility] Serum globulin measurementOr dered By: Martha Dodson on 07-20-2024 Globulin (S) [Mass/Vol] 2.3 g/dL 2.2-4.2 [facility] Serum glucose measurement (m ass/volume)Ordered By: Martha Dodson on 07-20-2024 Glucose [Mass/Vol] 179 mg/dL High 70-99 [facility] Serum or plasma alanine barber otransferase (ALT) measurementOrdered By: Martha Dodson on 07-20-2024 ALT [Catalytic activity/Vol] 19 U/L <47 [facility] Serum or plasma albumin yocasta urement (mass/volume)Ordered By: Martha Dodson on 07-20-2024 Albumin [Mass/Vol] 3.7 g/dL 3.4-4.8 [facility] Serum or plasma albumin/glob ulin mass ratioOrdered By: Martha Dodson 07-20-2024 Albumin/Globulin [Mass ratio] 1.6 {ratio} 0.9-2.4 [facility] Serum or plasma alkaline justin sphatase measurementOrdered By: Martha Dodson 07-20-2024 ALP [Catalytic activity/Vol] 89 U/L 40-129 [facility] Serum or plasma calcium yocasta urement (mass/volume)Ordered By: Martha Dodson on 07-20-2024 Calcium [Mass/Vol] 8.8 mg/dL 7.6-11.0 [facility] Serum or plasma ferritin vasquez surement (mass/volume)Ordered By: Martha Dodson on 07-20-2024 Ferritin [Mass/Vol] 137 ng/mL 37-417 [facility] Serum or plasma iron saturat ion measurement (mass fraction)Ordered By: Martha Dodson on 07-20-2024 Iron saturation [Mass fraction] 16.8 % 9-55 [facility] Serum or plasma urea nitroge n measurement (mass/volume)Ordered By: Martha Dodson on 07-20-2024 Urea nitrogen [Mass/Vol] 34 mg/dL High 4-19 [facility] Sodium levelOrdered By: Martha Dodson on 07-20-2024 Sodium [Moles/Vol] 144 mmol/L 133-145 [facility] Total proteinOrdered By: Jayden Dodson on 07-20-2024 Protein [Mass/Vol] 6.0 g/dL 5.9-8.4 [facility] Anion gap in Serum or Plasma Ordered By: Wilberto Villafuerte on 07-14-2024 Anion gap [Moles/Vol] 10 mmol/L 5-15 [facility] BUN/creatinine ratioOrdered By: Wilberto Villafuerte on 07-14-2024 Urea nitrogen/Creatinine [Mass ratio] 28.0 mg/mg High 10-20 [facility] Carbon dioxide, total [Moles /volume] in Central venous bloodOrdered By: Wilberto Villafuerte on 07-14-2024 CO2 [Moles/Vol] 29.3 mmol/L 21.0-32.0 [facility] Chloride assayOrdered By: Anh Villafuerte on 07-14-2024 Chloride [Moles/Vol] 104 mmol/L 98-108 [facility] Glomerular filtration rate ( GFR) estimation/1.73 sq m using serum, plasma, or whole bOrdered By: Wilberto Villafuerte on 07-14-2024 GFR/1.73 sq M.predicted among non-blacks MDRD (S/P/Bld) [Vol rate/Area] 43 mL/min/{1.73_m2} Low >60 [facility] Potassium measurement (mass/ volume)Ordered By: Wilberto Villafuerte on 07-14-2024 Potassium (Unsp spec) [Mass/Vol] 5.1 mmol/L 3.3-5.1 [facility] Serum creatinine measurement (mass/volume)Ordered By: Wilberto Villafuerte on 07-14-2024 Creatinine [Mass/Vol] 1.65 mg/dL High 0.70-1.20 [facility] Serum glucose measurement (m ass/volume)Ordered By: Wilberto Villafuerte on 07-14-2024 Glucose [Mass/Vol] 135 mg/dL High 70-99 [facility] Serum or plasma calcium yocasta urement (mass/volume)Ordered By: Wilberto Villafuerte on 07-14-2024 Calcium [Mass/Vol] 8.6 mg/dL 7.6-11.0 [facility] Serum or plasma urea nitroge n measurement (mass/volume)Ordered By: Wilberto Villafuerte on 07-14-2024 Urea nitrogen [Mass/Vol] 46 mg/dL High 4-19 [facility] Sodium levelOrdered By: Jacob Villafuerte on 07-14-2024 Sodium [Moles/Vol] 143 mmol/L 133-145 [facility] Trough vancomycin levelOrder ed By: Wilberto Villafuerte on 07-14-2024 Vancomycin trough [Mass/Vol] 21.5 ug/mL High 5.0-15.0 [facility] Anion gap in Serum or Plasma Ordered By: GERA Naik on 07-12-2024 Anion gap [Moles/Vol] 9 mmol/L 5-15 [facility] BUN/creatinine ratioOrdered By: GERA Naik on 07-12-2024 Urea nitrogen/Creatinine [Mass ratio] 27.1 mg/mg High 10-20 [facility] Blood manual differential co mment interpretation (narrative result)Ordered By: GERA Naik on 07-12-2024 Manual differential comment Sohan (Bld) [Interp] See comment [facility] Carbon dioxide, total [Moles /volume] in Central venous bloodOrdered By: GERA Naik on 07-12-2024 CO2 [Moles/Vol] 29.3 mmol/L 21.0-32.0 [facility] Chloride assayOrdered By: GERA Naik on 07-12-2024 Chloride [Moles/Vol] 105 mmol/L 98-108 [facility] Erythrocyte distribution wid th ratioOrdered By: GERA Naik on 07-12-2024 Erythrocyte distribution width (RBC) [Ratio] 19.7 % High 11.6-14.6 [facility] Erythrocyte distribution wid th standard deviationOrdered By: GERA Naik on 07-12-2024 Erythrocyte distribution width (RBC) [Ratio] 69.9 fl High 35.1-43.9 [facility] Glomerular filtration rate ( GFR) estimation/1.73 sq m using serum, plasma, or whole bOrdered By: GERA Naik on 07-12-2024 GFR/1.73 sq M.predicted among non-blacks MDRD (S/P/Bld) [Vol rate/Area] 52 mL/min/{1.73_m2} Low >60 [facility] Hematocrit Auto (Bld) [Volum e fraction]Ordered By: GERA Naik on 07-12-2024 Hematocrit (Bld) [Volume fraction] 24.5 % Low 40-54 [facility] Hemoglobin measurementOrdere d By: GERA Naik on 07-12-2024 Hemoglobin (Bld) [Mass/Vol] 7.4 g/dL Low 13.0-16.5 [facility] MCV (mean corpuscular volume ) determinationOrdered By: GERA Naik on 07-12-2024 MCV (RBC) [Entitic vol] 97.6 fL High 80-94 [facility] Mean corpuscular hemoglobin (MCH) determinationOrdered By: GERA Naik on 07-12-2024 MCH (RBC) [Entitic mass] 29.5 pg 27.0-32.0 [facility] Platelet countOrdered By: GERA Naik on 07-12-2024 Platelets (Bld) [#/Vol] 199 10*3/uL 150-450 [facility] Potassium measurement (mass/ volume)Ordered By: GERA Naik on 07-12-2024 Potassium (Unsp spec) [Mass/Vol] 5.3 mmol/L High 3.3-5.1 [facility] RBC Auto (Bld) [#/Vol]Ordere d By: GERA Naik on 07-12-2024 RBC (Bld) [#/Vol] 2.51 10*6/uL Low 4.6-6.2 [facility] Serum creatinine measurement (mass/volume)Ordered By: GERA Naik on 07-12-2024 Creatinine [Mass/Vol] 1.41 mg/dL High 0.70-1.20 [facility] Serum glucose measurement (m ass/volume)Ordered By: GERA Naik on 07-12-2024 Glucose [Mass/Vol] 363 mg/dL High 70-99 [facility] Serum or plasma calcium yocasta urement (mass/volume)Ordered By: GERA Naik on 07-12-2024 Calcium [Mass/Vol] 8.8 mg/dL 7.6-11.0 [facility] Serum or plasma urea nitroge n measurement (mass/volume)Ordered By: GERA Naik on 07-12-2024 Urea nitrogen [Mass/Vol] 38 mg/dL High 4-19 [facility] Sodium levelOrdered By: GERA Naik on 07-12-2024 Sodium [Moles/Vol] 144 mmol/L 133-145 [facility] Trough vancomycin levelOrder ed By: GERA Naik on 07-12-2024 Vancomycin trough [Mass/Vol] 27.7 ug/mL High 5.0-15.0 [facility] White blood cell (WBC) count Ordered By: GERA Naik on 07-12-2024 WBC (Bld) [#/Vol] 7.2 10*3/uL 4.4-11.0 [facility] Absolute lymphocyte countOrd ered By: Marco Hoffman on 07-08-2024 Lymphocytes Auto (Unsp spec) [#/Vol] 1.34 10*3/uL 0.83-4.51 [facility] Activated partial thrombopla stin time (aPTT) in platelet poor plasma by coagulation aOrdered By: Marco Hoffman on 07-08-2024 aPTT Coag (PPP) [Time] 31.3 s 24.1-36.2 [facility] Anion gap in Serum or Plasma Ordered By: Marco Hoffman on 07-08-2024 Anion gap [Moles/Vol] 11 mmol/L - [facility] Automated lymphocyte count a s percentage of total leukocytesOrdered By: Marco Hoffman on 07-08-2024 Lymphocytes/100 WBC Auto (Unsp spec) 15.2 % Low 19-41 [facility] BUN/creatinine ratioOrdered By: Marco Hoffman on 07-08-2024 Urea nitrogen/Creatinine [Mass ratio] 30.5 mg/mg High 10-20 [facility] Basophil percentageOrdered B y: Marco Hoffman on 07-08-2024 Basophils/100 WBC (Bld) 0.2 % 0-1 [facility] Bilirubin Test strip Ql (U)O rdered By: Marco Hoffman on 07-08-2024 Bilirubin Ql (U) Negative Negative [facility] Bilirubin, totalOrdered By: Marco Hoffman on 07-08-2024 Bilirubin [Mass/Vol] 0.35 mg/dL 0.00-1.30 [facility] Blood cultureOrdered By: Jasmnie Hoffman on 07-08-2024 Bacteria identified Cx Nom (Bld) No growth in 5 days. [facility] Bacteria identified Cx Nom (Bld) No growth in 5 days. [facility] Carbon dioxide, total [Moles /volume] in Central venous bloodOrdered By: Marco Hoffman on 07-08-2024 CO2 [Moles/Vol] 27.6 mmol/L 21.0-32.0 [facility] Chloride assayOrdered By: Deangelo Hoffman on 07-08-2024 Chloride [Moles/Vol] 106 mmol/L 98-108 [facility] Eosinophil percentageOrdered By: Marco Hoffman on 07-08-2024 Eosinophils/100 WBC (Bld) 2.0 % 0-5 [facility] Erythrocyte distribution wid th ratioOrdered By: Marco Hoffman on 07-08-2024 Erythrocyte distribution width (RBC) [Ratio] 20.1 % High 11.6-14.6 [facility] Erythrocyte distribution wid th standard deviationOrdered By: Marco Hoffman on 07-08-2024 Erythrocyte distribution width (RBC) [Ratio] 70.7 fl High 35.1-43.9 [facility] Glomerular filtration rate ( GFR) estimation/1.73 sq m using serum, plasma, or whole bOrdered By: Marco Hoffman on 07-08-2024 GFR/1.73 sq M.predicted among non-blacks MDRD (S/P/Bld) [Vol rate/Area] 59 mL/min/{1.73_m2} Low >60 [facility] Hematocrit Auto (Bld) [Volum e fraction]Ordered By: Marco Hoffman on 07-08-2024 Hematocrit (Bld) [Volume fraction] 23.2 % Low 40-54 [facility] Hemoglobin measurementOrdere d By: Marco Hoffman on 07-08-2024 Hemoglobin (Bld) [Mass/Vol] 7.2 g/dL Low 13.0-16.5 [facility] Immature granulocytes/100 WB C Auto (Bld)Ordered By: Marco Hoffman on 07-08-2024 Immature granulocytes/100 WBC (Bld) 1.500 % High 0.0-0.9 [facility] Ketones Test strip Ql (U)Ord ered By: Marco Hoffman on 07-08-2024 Ketones Ql (U) Negative Negative [facility] MCV (mean corpuscular volume ) determinationOrdered By: Marco Hoffman on 07-08-2024 MCV (RBC) [Entitic vol] 95.5 fL High 80-94 [facility] Mean corpuscular hemoglobin (MCH) determinationOrdered By: Marco Hoffman on 07-08-2024 MCH (RBC) [Entitic mass] 29.6 pg 27.0-32.0 [facility] Monocyte percentageOrdered B y: Marco Hoffman on 07-08-2024 Monocytes/100 WBC (Bld) 9.4 % 0-10 [facility] Mucus LM Ql (Urine sed)Order ed By: Marco Hoffman on 07-08-2024 Mucus Ql (Urine sed) 0 SEEN /hpf [facility] Neutrophil percentageOrdered By: Marco Hoffman on 07-08-2024 Neutrophils/100 WBC (Bld) 71.7 % High 47-70 [facility] Nitrite Test strip Ql (U)Ord ered By: Marco Hoffman on 07-08-2024 Nitrite Ql (U) Negative Negative [facility] No Panel InformationOrdered By: Marco Hoffman on 07-08-2024 23 U/L <38 [facility] 2+ [facility] Platelet countOrdered By: Deangelo Hoffman on 07-08-2024 Platelets (Bld) [#/Vol] 162 10*3/uL 150-450 [facility] Potassium measurement (mass/ volume)Ordered By: Marco Hoffman on 07-08-2024 Potassium (Unsp spec) [Mass/Vol] 3.8 mmol/L 3.3-5.1 [facility] Protein Test strip Ql (U)Ord ered By: Marco Hoffman on 07-08-2024 Protein Ql (U) 30 mg/dl High Negative [facility] Prothrombin timeOrdered By: Marco Hoffman on 07-08-2024 PT Coag (PPP) [Time] 14.2 s 11.7-14.9 [facility] RBC Auto (Bld) [#/Vol]Ordere d By: Marco Hoffman on 07-08-2024 RBC (Bld) [#/Vol] 2.43 10*6/uL Low 4.6-6.2 [facility] Serum creatinine measurement (mass/volume)Ordered By: Marco Hoffman on 07-08-2024 Creatinine [Mass/Vol] 1.28 mg/dL High 0.70-1.20 [facility] Serum globulin measurementOr dered By: Marco Hoffman on 07-08-2024 Globulin (S) [Mass/Vol] 2.7 g/dL 2.2-4.2 [facility] Serum glucose measurement (m ass/volume)Ordered By: Marco Hoffman on 07-08-2024 Glucose [Mass/Vol] 164 mg/dL High 70-99 [facility] Serum or plasma alanine barber otransferase (ALT) measurementOrdered By: Marco Hoffman on 07-08-2024 ALT [Catalytic activity/Vol] 38 U/L <47 [facility] Serum or plasma albumin yocasta urement (mass/volume)Ordered By: Marco Hoffman on 07-08-2024 Albumin [Mass/Vol] 3.4 g/dL 3.4-4.8 [facility] Serum or plasma albumin/glob ulin mass ratioOrdered By: Marco Hoffman on 07-08-2024 Albumin/Globulin [Mass ratio] 1.3 {ratio} 0.9-2.4 [facility] Serum or plasma alkaline justin sphatase measurementOrdered By: Marco Hoffman on 07-08-2024 ALP [Catalytic activity/Vol] 122 U/L 40-129 [facility] Serum or plasma calcium yocasta urement (mass/volume)Ordered By: Marco Hoffman on 07-08-2024 Calcium [Mass/Vol] 8.5 mg/dL 7.6-11.0 [facility] Serum or plasma urea nitroge n measurement (mass/volume)Ordered By: Marco Hoffman on 07-08-2024 Urea nitrogen [Mass/Vol] 39 mg/dL High 4-19 [facility] Sodium levelOrdered By: Marco Hoffman on 07-08-2024 Sodium [Moles/Vol] 144 mmol/L 133-145 [facility] Squamous epithelial cells de tection in urine sediment by light microscopyOrdered By: Marco Hoffman on 07-08-2024 Epithelial cells.squamous LM Ql (Urine sed) 0-5 SEEN /hpf 0-5 [facility] Total proteinOrdered By: Jasmine Hoffman on 07-08-2024 Protein [Mass/Vol] 6.1 g/dL 5.9-8.4 [facility] Urine clarityOrdered By: Jasmine Hoffman on 07-08-2024 Clarity (U) Sl. Cloudy Clear [facility] Urine color determinationOrd ered By: Marco Hoffman on 07-08-2024 Color (U) Yellow Yellow [facility] Urine glucose detectionOrder ed By: Marco Hoffman on 07-08-2024 Glucose Ql (U) 1000 mg/dl High Normal [facility] Urine leukocyte esterase det ection by dipstickOrdered By: Marco Hoffman on 07-08-2024 Leukocyte esterase Test strip Ql (U) 500 /ul High Negative [facility] Urine pHOrdered By: Marco campos on 07-08-2024 pH (U) 6.0 [pH] 5.0 - 8.0 [facility] Urine sediment bacteria coun t by microscopy (number/high power field)Ordered By: Marco Hoffman on 07-08-2024 Bacteria LM.HPF (Urine sed) [#/Area] 1 /[HPF] None Seen [facility] Urine sediment yeast count b y microscopy (number/high powered field)Ordered By: Marco Hoffman on 07-08-2024 Yeast LM.HPF (Urine sed) [#/Area] 2 /[HPF] None Seen [facility] Urine specific gravity measu rementOrdered By: Marco Hoffman on 07-08-2024 Specific gravity (U) [Rel density] 1.015 1.002-1.030 [facility] Urine urobilinogen measureme ntOrdered By: Marco Hoffman on 07-08-2024 Urobilinogen Ql (U) Normal mg/dl Normal [facility] White blood cell (WBC) count Ordered By: Marco Hoffman on 07-08-2024 WBC (Bld) [#/Vol] 8.8 10*3/uL 4.4-11.0 [facility] White blood cell countOrdere d By: Marco Hoffman on 07-08-2024 White blood cell count 25-50 SEEN /hpf 0-5 [facility] Anion gap in Serum or Plasma Ordered By: Wilberto Villafuerte on 07-05-2024 Anion gap [Moles/Vol] 10 mmol/L 5-15 [facility] BUN/creatinine ratioOrdered By: Wilberto Villafuerte on 07-05-2024 Urea nitrogen/Creatinine [Mass ratio] 27.0 mg/mg High 10-20 [facility] Blood manual differential co mment interpretation (narrative result)Ordered By: Wilberto Villafuerte on 07-05-2024 Manual differential comment Sohan (Bld) [Interp] See comment [facility] Carbon dioxide, total [Moles /volume] in Central venous bloodOrdered By: Wilberto Villafuerte on 07-05-2024 CO2 [Moles/Vol] 29.6 mmol/L 21.0-32.0 [facility] Chloride assayOrdered By: Anh Villafuerte on 07-05-2024 Chloride [Moles/Vol] 107 mmol/L 98-108 [facility] Erythrocyte distribution wid th ratioOrdered By: Wilberto Villafuerte on 07-05-2024 Erythrocyte distribution width (RBC) [Ratio] 21.1 % High 11.6-14.6 [facility] Erythrocyte distribution wid th standard deviationOrdered By: Wilberto Villafuerte on 07-05-2024 Erythrocyte distribution width (RBC) [Ratio] 75.3 fl High 35.1-43.9 [facility] Glomerular filtration rate ( GFR) estimation/1.73 sq m using serum, plasma, or whole bOrdered By: Wilberto Villafuerte on 07-05-2024 GFR/1.73 sq M.predicted among non-blacks MDRD (S/P/Bld) [Vol rate/Area] 58 mL/min/{1.73_m2} Low >60 [facility] Hematocrit Auto (Bld) [Volum e fraction]Ordered By: Wilberto Villafuerte on 07-05-2024 Hematocrit (Bld) [Volume fraction] 28.2 % Low 40-54 [facility] Hemoglobin measurementOrdere d By: Wilberto Villafuerte on 07-05-2024 Hemoglobin (Bld) [Mass/Vol] 8.4 g/dL Low 13.0-16.5 [facility] MCV (mean corpuscular volume ) determinationOrdered By: Wilberto Villafuerte on 07-05-2024 MCV (RBC) [Entitic vol] 97.6 fL High 80-94 [facility] Mean corpuscular hemoglobin (MCH) determinationOrdered By: Wilberto Villafuerte on 07-05-2024 MCH (RBC) [Entitic mass] 29.1 pg 27.0-32.0 [facility] Platelet countOrdered By: Anh Villafuerte on 07-05-2024 Platelets (Bld) [#/Vol] 263 10*3/uL 150-450 [facility] Potassium measurement (mass/ volume)Ordered By: Wilberto Villafuerte on 07-05-2024 Potassium (Unsp spec) [Mass/Vol] 4.5 mmol/L 3.3-5.1 [facility] RBC Auto (Bld) [#/Vol]Ordere d By: Wilberto Villafuerte on 07-05-2024 RBC (Bld) [#/Vol] 2.89 10*6/uL Low 4.6-6.2 [facility] Serum creatinine measurement (mass/volume)Ordered By: Wilberto Villafuerte on 07-05-2024 Creatinine [Mass/Vol] 1.29 mg/dL High 0.70-1.20 [facility] Serum glucose measurement (m ass/volume)Ordered By: Wilberto Villafuerte on 07-05-2024 Glucose [Mass/Vol] 158 mg/dL High 70-99 [facility] Serum or plasma calcium yocasta urement (mass/volume)Ordered By: Wilberto Villafuerte on 07-05-2024 Calcium [Mass/Vol] 8.8 mg/dL 7.6-11.0 [facility] Serum or plasma urea nitroge n measurement (mass/volume)Ordered By: Wilberto Villafuerte on 07-05-2024 Urea nitrogen [Mass/Vol] 35 mg/dL High 4-19 [facility] Sodium levelOrdered By: Jacob Villafuerte on 07-05-2024 Sodium [Moles/Vol] 146 mmol/L High 133-145 [facility] Trough vancomycin levelOrder ed By: Wilberto Villafuerte on 07-05-2024 Vancomycin trough [Mass/Vol] 20.4 ug/mL High 5.0-15.0 [facility] White blood cell (WBC) count Ordered By: Wilberto Villafuerte on 07-05-2024 WBC (Bld) [#/Vol] 11.6 10*3/uL High 4.4-11.0 [facility] Anion gap [Moles/Vol]Ordered By: Wilberto Villafuerte on 06-28-2024 Anion gap in Serum or Plasma 8 5-15 [facility] Anion gap in Serum or Plasma Ordered By: Wilberto Villafuerte on 06-28-2024 Anion gap [Moles/Vol] 8 mmol/L 5-15 [facility] BUN/creatinine ratioOrdered By: Wilberto Villafuerte on 06-28-2024 Urea nitrogen/Creatinine [Mass ratio] 33.7 mg/mg High 10-20 [facility] BUN/creatinine ratio 33.7 RATIO High 10-20 [facility] Blood manual differential co mment interpretation (narrative result)Ordered By: Wilberto Villafuerte on 06-28-2024 Manual differential comment Sohan (Bld) [Interp] See comment [facility] Calcium [Mass/Vol]Ordered By : Wilberto Villafuerte on 06-28-2024 Serum or plasma calcium measurement (mass/volume) 8.8 mg/dL 7.6-11.0 [facility] Carbon dioxide, total [Moles /volume] in Central venous bloodOrdered By: Wilberto Villafuerte on 06-28-2024 CO2 [Moles/Vol] 30.4 mmol/L 21.0-32.0 [facility] Carbon dioxide, total [Moles/volume] in Central venous blood 30.4 mmol/L 21.0-32.0 [facility] Chloride assayOrdered By: Anh Villafuerte on 06-28-2024 Chloride [Moles/Vol] 108 mmol/L 98-108 [facility] Chloride assay 108 mmol/L 98-108 [facility] Creatinine [Mass/Vol]Ordered By: Wilberto Villafuerte on 06-28-2024 Serum creatinine measurement (mass/volume) 1.14 mg/dL 0.70-1.20 [facility] Erythrocyte distribution wid th (RBC) [Ratio]Ordered By: Wilberto Villafuerte on 06-28-2024 Erythrocyte distribution width ratio 20.7 % High 11.6-14.6 [facility] Erythrocyte distribution width standard deviation 71.3 fl High 35.1-43.9 [facility] Erythrocyte distribution wid th ratioOrdered By: Wilberto Villafuerte on 06-28-2024 Erythrocyte distribution width (RBC) [Ratio] 20.7 % High 11.6-14.6 [facility] Erythrocyte distribution wid th standard deviationOrdered By: Wilberto Villafuerte on 06-28-2024 Erythrocyte distribution width (RBC) [Ratio] 71.3 fl High 35.1-43.9 [facility] GFR/1.73 sq M.predicted idania g non-blacks MDRD (S/P/Bld) [Vol rate/Area]Ordered By: Wilberto Villafuerte on 06-28-2024 Glomerular filtration rate (GFR) estimation/1.73 sq m using serum, plasma, or whole b 67 >60 [facility] Glomerular filtration rate ( GFR) estimation/1.73 sq m using serum, plasma, or whole bOrdered By: Wilberto Villafuerte on 06-28-2024 GFR/1.73 sq M.predicted among non-blacks MDRD (S/P/Bld) [Vol rate/Area] 67 mL/min/{1.73_m2} >60 [facility] Glucose [Mass/Vol]Ordered By : Wilberto Villafuerte on 06-28-2024 Serum glucose measurement (mass/volume) 112 mg/dL High 70-99 [facility] Hematocrit Auto (Bld) [Volum e fraction]Ordered By: Wilberto Villafuerte on 06-28-2024 Hematocrit (Bld) [Volume fraction] 28.7 % Low 40-54 [facility] Automated blood hematocrit (percentage) 28.7 % Low 40-54 [facility] Hemoglobin measurementOrdere d By: Wilberto Villafuerte on 06-28-2024 Hemoglobin (Bld) [Mass/Vol] 8.8 g/dL Low 13.0-16.5 [facility] Hemoglobin measurement 8.8 g/dL Low 13.0-16.5 [facility] MCV (RBC) [Entitic vol]Order ed By: Wilberto Villafuerte on 06-28-2024 MCV (mean corpuscular volume) determination 94.7 fL High 80-94 [facility] MCV (mean corpuscular volume ) determinationOrdered By: Wilberto Villafuerte on 06-28-2024 MCV (RBC) [Entitic vol] 94.7 fL High 80-94 [facility] Manual differential comment Sohan (Bld) [Interp]Ordered By: Wilberto Villafuerte on 06-28-2024 Blood manual differential comment interpretation (narrative result) See comment [facility] Mean corpuscular hemoglobin (MCH) determinationOrdered By: Wilberto Villafuerte on 06-28-2024 MCH (RBC) [Entitic mass] 29.0 pg 27.0-32.0 [facility] Mean corpuscular hemoglobin (MCH) determination 29.0 pg 27.0-32.0 [facility] Mean corpuscular hemoglobin concentration (MCHC) determinationOrdered By: Wilberto Villafuerte on 06-28-2024 Mean corpuscular hemoglobin concentration (MCHC) determination 30.7 g/dL Low 32-36 [facility] Mean platelet volume determi nationOrdered By: Wilberto Villafuerte on 06-28-2024 Mean platelet volume determination 11.6 fl 6.2-12.0 [facility] Platelet countOrdered By: Anh Villafuerte on 06-28-2024 Platelets (Bld) [#/Vol] 309 10*3/uL 150-450 [facility] Platelet count 309 K/mm3 150-450 [facility] Potassium (Unsp spec) [Mass/ Vol]Ordered By: Wilberto Villafuerte on 06-28-2024 Potassium measurement (mass/volume) 4.2 mmol/L 3.3-5.1 [facility] Potassium measurement (mass/ volume)Ordered By: Wilberto Villafuerte on 06-28-2024 Potassium (Unsp spec) [Mass/Vol] 4.2 mmol/L 3.3-5.1 [facility] RBC Auto (Bld) [#/Vol]Ordere d By: Wilberto Villafuerte on 06-28-2024 RBC (Bld) [#/Vol] 3.03 10*6/uL Low 4.6-6.2 [facility] Automated blood erythrocyte count 3.03 M/mm3 Low 4.6-6.2 [facility] Serum creatinine measurement (mass/volume)Ordered By: Wilberto Villafuerte on 06-28-2024 Creatinine [Mass/Vol] 1.14 mg/dL 0.70-1.20 [facility] Serum glucose measurement (m ass/volume)Ordered By: Wilberto Villafuerte on 06-28-2024 Glucose [Mass/Vol] 112 mg/dL High 70-99 [facility] Serum or plasma calcium yocasta urement (mass/volume)Ordered By: Wilberto Villafuerte on 06-28-2024 Calcium [Mass/Vol] 8.8 mg/dL 7.6-11.0 [facility] Serum or plasma urea nitroge n measurement (mass/volume)Ordered By: Wilberto Villafuerte on 06-28-2024 Urea nitrogen [Mass/Vol] 38 mg/dL High 4-19 [facility] Sodium levelOrdered By: Jacob Villafuerte on 06-28-2024 Sodium [Moles/Vol] 146 mmol/L High 133-145 [facility] Sodium level 146 mmol/L High 133-145 [facility] Trough vancomycin levelOrder ed By: Wilberto Villafuerte on 06-28-2024 Vancomycin trough [Mass/Vol] 18.5 ug/mL High 5.0-15.0 [facility] Urea nitrogen [Mass/Vol]Orde red By: Wilberto Villafuerte on 06-28-2024 Serum or plasma urea nitrogen measurement (mass/volume) 38 mg/dL High 4-19 [facility] Vancomycin trough [Mass/Vol] Ordered By: Wilberto Villafuerte on 06-28-2024 Trough vancomycin level 18.5 ug/mL High 5.0-15.0 [facility] White blood cell (WBC) count Ordered By: Wilberto Villafuerte on 06-28-2024 WBC (Bld) [#/Vol] 15.6 10*3/uL High 4.4-11.0 [facility] White blood cell (WBC) count 15.6 K/mm3 High 4.4-11.0 [facility] Absolute lymphocyte countOrd ered By: Jordan Ortiz on 06-25-2024 Lymphocytes Auto (Unsp spec) [#/Vol] 0.88 10*3/uL 0.83-4.51 [facility] Absolute neutrophil countOrd ered By: Jordan Ortiz on 06-25-2024 Absolute neutrophil count 5.5 X10^3/uL 2.0-7.7 [facility] Anion gap [Moles/Vol]Ordered By: Jordan Ortiz on 06-25-2024 Anion gap in Serum or Plasma 8 5-15 [facility] Anion gap in Serum or Plasma Ordered By: Jordan Ortiz on 06-25-2024 Anion gap [Moles/Vol] 8 mmol/L 5-15 [facility] Automated lymphocyte count a s percentage of total leukocytesOrdered By: Jordan Ortiz on 06-25-2024 Lymphocytes/100 WBC Auto (Unsp spec) 12.3 % Low 19-41 [facility] BUN/creatinine ratioOrdered By: Jordan Ortiz on 06-25-2024 Urea nitrogen/Creatinine [Mass ratio] 41.4 mg/mg High 10-20 [facility] BUN/creatinine ratio 41.4 RATIO High 10-20 [facility] Basophil percentageOrdered B y: Jordan Ortiz on 06-25-2024 Basophils/100 WBC (Bld) 0.0 % 0-1 [facility] Basophil percentage 0.0 % 0-1 [facility] Blood manual differential co mment interpretation (narrative result)Ordered By: Jordan Ortiz on 06-25-2024 Manual differential comment Sohan (Bld) [Interp] SCANNED [facility] Calcium [Mass/Vol]Ordered By : Jordan Ortiz on 06-25-2024 Serum or plasma calcium measurement (mass/volume) 8.6 mg/dL 7.6-11.0 [facility] Carbon dioxide, total [Moles /volume] in Central venous bloodOrdered By: Jordan Ortiz on 06-25-2024 CO2 [Moles/Vol] 27.1 mmol/L 21.0-32.0 [facility] Carbon dioxide, total [Moles/volume] in Central venous blood 27.1 mmol/L 21.0-32.0 [facility] Chloride assayOrdered By: Nixon Ortiz on 06-25-2024 Chloride [Moles/Vol] 103 mmol/L 98-108 [facility] Chloride assay 103 mmol/L 98-108 [facility] Creatinine [Mass/Vol]Ordered By: Jordan Ortiz on 06-25-2024 Serum creatinine measurement (mass/volume) 1.12 mg/dL 0.70-1.20 [facility] Eosinophil percentageOrdered By: Jordan Ortiz on 06-25-2024 Eosinophils/100 WBC (Bld) 0.3 % 0-5 [facility] Eosinophil percentage 0.3 % 0-5 [facility] Erythrocyte distribution wid th (RBC) [Ratio]Ordered By: Jordan Ortiz on 06-25-2024 Erythrocyte distribution width ratio 20.3 % High 11.6-14.6 [facility] Erythrocyte distribution width standard deviation 69.2 fl High 35.1-43.9 [facility] Erythrocyte distribution wid th ratioOrdered By: Jordan Ortiz on 06-25-2024 Erythrocyte distribution width (RBC) [Ratio] 20.3 % High 11.6-14.6 [facility] Erythrocyte distribution wid th standard deviationOrdered By: Jordan Ortiz on 06-25-2024 Erythrocyte distribution width (RBC) [Ratio] 69.2 fl High 35.1-43.9 [facility] Estimation of creatinine montez aranceOrdered By: Jordan Ortiz on 06-25-2024 Estimation of creatinine clearance 69.29 ml/min 50-250 [facility] GFR/1.73 sq M.predicted idania g non-blacks MDRD (S/P/Bld) [Vol rate/Area]Ordered By: Jordan Ortiz on 06-25-2024 Glomerular filtration rate (GFR) estimation/1.73 sq m using serum, plasma, or whole b 69 >60 [facility] Glomerular filtration rate ( GFR) estimation/1.73 sq m using serum, plasma, or whole bOrdered By: Jordan Ortiz on 06-25-2024 GFR/1.73 sq M.predicted among non-blacks MDRD (S/P/Bld) [Vol rate/Area] 69 mL/min/{1.73_m2} >60 [facility] Glucose [Mass/Vol]Ordered By : Jordan Ortiz on 06-25-2024 Serum glucose measurement (mass/volume) 241 mg/dL High 70-99 [facility] Glucose measurement at bedsi deOrdered By: Jordan Ortiz on 06-25-2024 Glucose [Mass/Vol] 147 mg/dL High 74-106 [facility] Glucose measurement at bedside 147 mg/dL High 74-106 [facility] Hematocrit Auto (Bld) [Volum e fraction]Ordered By: Jordan Ortiz on 06-25-2024 Hematocrit (Bld) [Volume fraction] 24.7 % Low 40-54 [facility] Automated blood hematocrit (percentage) 24.7 % Low 40-54 [facility] Hemoglobin measurementOrdere d By: Jordan Ortiz on 06-25-2024 Hemoglobin (Bld) [Mass/Vol] 7.7 g/dL Low 13.0-16.5 [facility] Hemoglobin measurement 7.7 g/dL Low 13.0-16.5 [facility] Immature granulocytes/100 WB C Auto (Bld)Ordered By: Jordan Ortiz on 06-25-2024 Immature granulocytes/100 WBC (Bld) 1.500 % High 0.0-0.9 [facility] Automated immature granulocyte percentage 1.500 % High 0.0-0.9 [facility] Lymphocytes Auto (Unsp spec) [#/Vol]Ordered By: Jordan Ortiz on 06-25-2024 Absolute lymphocyte count 0.88 X10^3/uL 0.83-4.51 [facility] Lymphocytes/100 WBC Auto (Un sp spec)Ordered By: Jordan Ortiz on 06-25-2024 Automated lymphocyte count as percentage of total leukocytes 12.3 % Low 19-41 [facility] MCV (RBC) [Entitic vol]Order ed By: Jordan Ortiz on 06-25-2024 MCV (mean corpuscular volume) determination 92.2 fL 80-94 [facility] MCV (mean corpuscular volume ) determinationOrdered By: Jordan Ortiz on 06-25-2024 MCV (RBC) [Entitic vol] 92.2 fL 80-94 [facility] Magnesium (Unsp spec) [Mass/ Vol]Ordered By: Janice Mackey on 06-25-2024 Magnesium measurement (mass/volume) 2.0 mg/dL 1.5-2.2 [facility] Magnesium measurement (mass/ volume)Ordered By: Janice Mackey on 06-25-2024 Magnesium (Unsp spec) [Mass/Vol] 2.0 mg/dL 1.5-2.2 [facility] Manual differential comment Sohan (Bld) [Interp]Ordered By: Jordna Ortiz on 06-25-2024 Blood manual differential comment interpretation (narrative result) SCANNED [facility] Mean corpuscular hemoglobin (MCH) determinationOrdered By: Jordan Ortiz on 06-25-2024 MCH (RBC) [Entitic mass] 28.7 pg 27.0-32.0 [facility] Mean corpuscular hemoglobin (MCH) determination 28.7 pg 27.0-32.0 [facility] Mean corpuscular hemoglobin concentration (MCHC) determinationOrdered By: Jordan Ortiz on 06-25-2024 Mean corpuscular hemoglobin concentration (MCHC) determination 31.2 g/dL Low 32-36 [facility] Mean platelet volume determi nationOrdered By: Jordan Ortiz on 06-25-2024 Mean platelet volume determination 11.0 fl 6.2-12.0 [facility] Monocyte percentageOrdered B y: Jordan Ortiz on 06-25-2024 Monocytes/100 WBC (Bld) 8.5 % 0-10 [facility] Monocyte percentage 8.5 % 0-10 [facility] Neutrophil percentageOrdered By: Jordan Ortiz on 06-25-2024 Neutrophils/100 WBC (Bld) 77.4 % High 47-70 [facility] Neutrophil percentage 77.4 % High 47-70 [facility] No Panel InformationOrdered By: Jordan Ortiz on 06-25-2024 2+ [facility] Nucleated red blood cell per centageOrdered By: Jordan Ortiz on 06-25-2024 Nucleated red blood cell percentage 0 % 0-5 [facility] Platelet countOrdered By: Nixon Ortiz on 06-25-2024 Platelets (Bld) [#/Vol] 186 10*3/uL 150-450 [facility] Platelet count 186 K/mm3 150-450 [facility] Potassium (Unsp spec) [Mass/ Vol]Ordered By: Jordan Ortiz on 06-25-2024 Potassium measurement (mass/volume) 4.3 mmol/L 3.3-5.1 [facility] Potassium measurement (mass/ volume)Ordered By: Jordan Ortiz on 06-25-2024 Potassium (Unsp spec) [Mass/Vol] 4.3 mmol/L 3.3-5.1 [facility] RBC Auto (Bld) [#/Vol]Ordere d By: Jordan Ortiz on 06-25-2024 RBC (Bld) [#/Vol] 2.68 10*6/uL Low 4.6-6.2 [facility] Automated blood erythrocyte count 2.68 M/mm3 Low 4.6-6.2 [facility] Serum creatinine measurement (mass/volume)Ordered By: Jordan Ortiz on 06-25-2024 Creatinine [Mass/Vol] 1.12 mg/dL 0.70-1.20 [facility] Serum glucose measurement (m ass/volume)Ordered By: Jordan Ortiz on 06-25-2024 Glucose [Mass/Vol] 241 mg/dL High 70-99 [facility] Serum or plasma calcium yocasta urement (mass/volume)Ordered By: Jordan Ortiz on 06-25-2024 Calcium [Mass/Vol] 8.6 mg/dL 7.6-11.0 [facility] Serum or plasma urea nitroge n measurement (mass/volume)Ordered By: Jordan Ortiz on 06-25-2024 Urea nitrogen [Mass/Vol] 46 mg/dL High 4-19 [facility] Sodium levelOrdered By: Matthias Ortiz on 06-25-2024 Sodium [Moles/Vol] 138 mmol/L 133-145 [facility] Sodium level 138 mmol/L 133-145 [facility] Urea nitrogen [Mass/Vol]Orde red By: Jordan Ortiz on 06-25-2024 Serum or plasma urea nitrogen measurement (mass/volume) 46 mg/dL High 4-19 [facility] White blood cell (WBC) count Ordered By: Jordan Ortiz on 06-25-2024 WBC (Bld) [#/Vol] 7.2 10*3/uL 4.4-11.0 [facility] White blood cell (WBC) count 7.2 K/mm3 4.4-11.0 [facility] Trough vancomycin levelOrder ed By: Wilberto Villafuerte on 06-24-2024 Vancomycin trough [Mass/Vol] 18.8 ug/mL High 5.0-15.0 [facility] Vancomycin trough [Mass/Vol] Ordered By: Wilberto Villafuerte on 06-24-2024 Trough vancomycin level 18.8 ug/mL High 5.0-15.0 [facility] Blood cultureOrdered By: Brock Villafuerte on 06-23-2024 Bacteria identified Cx Nom (Bld) No growth in 5 days. [facility] Blood culture No growth in 5 days. [facility] Macrocytes detectionOrdered By: Jordan Ortiz on 06-23-2024 Macrocytes Ql (Bld) 1+ [facility] Microcytosis evaluation pane lOrdered By: Jordan Ortiz on 06-23-2024 Microcytosis evaluation panel 1+ [facility] Blood cultureOrdered By: Tino Ortiz on 06-22-2024 Bacteria identified Cx Nom (Bld) No growth in 5 days. [facility] Blood culture No growth in 5 days. [facility] Bacteria identified Cx Nom (Bld) No growth in 5 days. [facility] Blood culture No growth in 5 days. [facility] Serum or plasma vancomycin m easurement (mass/volume)Ordered By: Jordan Ortiz on 06-22-2024 Vancomycin [Mass/Vol] 16.3 ug/mL High 0.0-15.0 [facility] Serum phosphorus measurement Ordered By: Jordan Ortiz on 06-22-2024 Serum phosphorus measurement 5.0 mg/dL High 2.7-4.5 [facility] Vancomycin [Mass/Vol]Ordered By: Jordan Ortiz on 06-22-2024 Serum or plasma vancomycin measurement (mass/volume) 16.3 ug/mL High 0.0-15.0 [facility] ALP [Catalytic activity/Vol] Ordered By: Mable Pritchard on 06-21-2024 Serum or plasma alkaline phosphatase measurement 57 U/L 40-129 [facility] ALT [Catalytic activity/Vol] Ordered By: Mable Pritchard on 06-21-2024 Serum or plasma alanine aminotransferase (ALT) measurement 16 U/L <47 [facility] Albumin [Mass/Vol]Ordered By : Mable Pritchard on 06-21-2024 Serum or plasma albumin measurement (mass/volume) 3.3 g/dL Low 3.4-4.8 [facility] Albumin/Globulin [Mass ratio ]Ordered By: Mable Pritchard on 06-21-2024 Serum or plasma albumin/globulin mass ratio 1.1 RATIO 0.9-2.4 [facility] Bilirubin, totalOrdered By: Mable Pritchard on 06-21-2024 Bilirubin [Mass/Vol] 0.78 mg/dL 0.00-1.30 [facility] Bilirubin, total 0.78 mg/dL 0.00-1.30 [facility] Gram stainOrdered By: Anthony Singleton on 06-21-2024 Microscopic observation Gram stain Nom (Unsp spec) [facility] Microbial respiratory cultur eOrdered By: Anthony Singleton on 06-21-2024 Microorganism identified Cx Nom (Unsp spec) Meth. resistant Staph. aureus Abnormal [facility] Microorganism identified Cx Nom (Unsp spec)Ordered By: Anthony Singleton on 06-21-2024 Microbial respiratory culture Meth. resistant Staph. aureus Abnormal [facility] No Panel InformationOrdered By: Mable Pritchard on 06-21-2024 52 U/L High <38 [facility] Ovalocyte detectionOrdered B y: Mable Pritchard on 06-21-2024 Ovalocytes LM Ql (Bld) RARE [facility] Ovalocytes LM Ql (Bld)Ordere d By: Mable Pritchard on 06-21-2024 Ovalocyte detection RARE [facility] Serum globulin measurementOr dered By: Mable Pritchard on 06-21-2024 Globulin (S) [Mass/Vol] 2.9 g/dL 2.2-4.2 [facility] Serum globulin measurement 2.9 g/dL 2.2-4.2 [facility] Serum or plasma alanine barber otransferase (ALT) measurementOrdered By: Mable Pritchard on 06-21-2024 ALT [Catalytic activity/Vol] 16 U/L <47 [facility] Serum or plasma albumin yocasta urement (mass/volume)Ordered By: Mable Pritchard on 06-21-2024 Albumin [Mass/Vol] 3.3 g/dL Low 3.4-4.8 [facility] Serum or plasma albumin/glob ulin mass ratioOrdered By: Mable Pritchard on 06-21-2024 Albumin/Globulin [Mass ratio] 1.1 {ratio} 0.9-2.4 [facility] Serum or plasma alkaline justin sphatase measurementOrdered By: Mable Pritchard on 06-21-2024 ALP [Catalytic activity/Vol] 57 U/L 40-129 [facility] Total proteinOrdered By: Orly Pritchard on 06-21-2024 Protein [Mass/Vol] 6.2 g/dL 5.9-8.4 [facility] Total protein 6.2 g/dL 5.9-8.4 [facility] Toxic granules LM Ql (Bld)Or dered By: Mable Pritchard on 06-21-2024 Toxic leukocyte granulation detection 2+ [facility] Toxic leukocyte granulation detectionOrdered By: Mable Pritchard on 06-21-2024 Toxic granules LM Ql (Bld) 2+ [facility] Activated partial thrombopla stin time (aPTT) in platelet poor plasma by coagulation aOrdered By: Jaydon Driscoll on 06-20-2024 aPTT Coag (PPP) [Time] 21.3 s Low 24.1-36.2 [facility] Arterial patency Wrist arter y --pre arterial punctureOrdered By: Eva Marie on 06-20-2024 Assessment of wrist artery patency prior to arterial puncture Positive [facility] Assessment of wrist artery p atency prior to arterial punctureOrdered By: Eva Marie on 06-20-2024 Arterial patency Wrist artery --pre arterial puncture Positive [facility] Bacteria LM.HPF (Urine sed) [#/Area]Ordered By: Jaydon Driscoll on 06-20-2024 Urine sediment bacteria count by microscopy (number/high power field) 1+ /hpf None Seen [facility] Base excess Calc (BldV) [Mol es/Vol]Ordered By: Eva Marie on 06-20-2024 Blood base excess determination 10 mmol/L High -2-2 [facility] Basophilic stippling LM Ql ( Bld)Ordered By: Jaydon Driscoll on 06-20-2024 Erythrocyte basophilic stippling detection RARE [facility] Bilirubin Test strip Ql (U)O rdered By: Jaydon Driscoll on 06-20-2024 Bilirubin Ql (U) Negative Negative [facility] Blood base excess determinat ionOrdered By: Eva Marie on 06-20-2024 Base excess Calc (BldV) [Moles/Vol] 10 mmol/L High -2-2 [facility] Blood bicarbonate measuremen tOrdered By: Eva Marie on 06-20-2024 HCO3 (Bld) [Moles/Vol] 33.4 mmol/L High 22-26 [facility] Blood bicarbonate measurement 33.4 mmol/L High 22-26 [facility] Blood cultureOrdered By: Magali Driscoll on 06-20-2024 Bacteria identified Cx Nom (Bld) Meth. resistant Staph. aureus Abnormal [facility] Blood culture Meth. resistant Stap h. aureus Abnormal [facility] Blood polychromasia detectio n by light microscopyOrdered By: Jaydon Driscoll on 06-20-2024 Polychromasia LM Ql (Bld) 1+ [facility] Clarity (U)Ordered By: Jaydon Driscoll on 06-20-2024 Urine clarity Clear Clear [facility] Color (U)Ordered By: Jaydon key on 06-20-2024 Urine color determination Yellow Yellow [facility] Determination of fraction of inspired oxygenOrdered By: Eva Marie on 06-20-2024 Determination of fraction of inspired oxygen 4.0 [facility] Erythrocyte basophilic stipp ling detectionOrdered By: Jaydon Driscoll on 06-20-2024 Basophilic stippling LM Ql (Bld) RARE [facility] Glucose Ql (U)Ordered By: Yanelis Driscoll on 06-20-2024 Urine glucose detection 1000 mg/dl High Normal [facility] Influenza virus A and B and SARS-CoV-2 (COVID-19) and Respiratory syncytial virus RNAOrdered By: Jaydon Driscoll on 06-20-2024 SARS-CoV-2 (COVID-19) RNA JUSTIN+probe Ql (Unsp spec) [facility] International normalized rat io (INR) calculationOrdered By: Jaydon Driscoll on 06-20-2024 International normalized ratio (INR) calculation 1.0 [facility] Ketones Test strip Ql (U)Ord ered By: Jaydon Driscoll on 06-20-2024 Ketones Ql (U) Negative Negative [facility] Lactic acid measurementOrder ed By: Jaydon Driscoll on 06-20-2024 Lactic acid measurement 1.1 mmol/L 0.0-2.0 [facility] Leukocyte esterase Test stri p Ql (U)Ordered By: Jaydon Driscoll on 06-20-2024 Urine leukocyte esterase detection by dipstick 25 /ul High Negative [facility] Measurement, pHOrdered By: Gurwinder Marie on 06-20-2024 pH (Unsp spec) 7.46 [pH] High 7.35-7.45 [facility] Microscopic analysis of urin e for red blood cells (RBC)Ordered By: Jaydon Driscoll on 06-20-2024 Microscopic analysis of urine for red blood cells (RBC) 0-5 SEEN /hpf 0-5 [facility] Mucus LM Ql (Urine sed)Order ed By: Jaydon Driscoll on 06-20-2024 Mucus Ql (Urine sed) 0 SEEN /hpf [facility] Mucus detection in urine sediment by light microscopy 0 SEEN /hpf [facility] Natriuretic peptide.B prohor sena N-Terminal [Mass/Vol]Ordered By: Jaydon Driscoll on 06-20-2024 Natriuretic peptide.B prohormone N-Terminal [Mass/volume] in Serum or Plasma 4069 pg/mL High <900 [facility] Natriuretic peptide.B prohor sena N-Terminal [Mass/volume] in Serum or PlasmaOrdered By: Jaydon Driscoll on 06-20-2024 Natriuretic peptide.B prohormone N-Terminal [Mass/Vol] 4069 pg/mL High <900 [facility] Nitrite Test strip Ql (U)Ord ered By: Jaydon Driscoll on 06-20-2024 Nitrite Ql (U) Negative Negative [facility] No Panel InformationOrdered By: Eva Marie on 06-20-2024 ART [facility] L Radial [facility] Not entered [facility] Cannula [facility] Organism identificationOrder ed By: Jaydon Driscoll on 06-20-2024 Microorganism identified Cx Nom (Unsp spec) Meth. resistant Staph. aureus Abnormal [facility] Oxygen saturation measuremen tOrdered By: Eva Marie on 06-20-2024 Oxygen saturation measurement 87 % Low 95-99 [facility] Partial pressure of carbon d ioxide measurementOrdered By: Eva Marie on 06-20-2024 Partial pressure of carbon dioxide measurement 47.0 mmHg High 35-45 [facility] Partial pressure of oxygen m easurementOrdered By: Eva Marie on 06-20-2024 Partial pressure of oxygen measurement 51 mmHG Low 75-100 [facility] Platelet estimateOrdered By: Jaydon Driscoll on 06-20-2024 Platelets LM Ql (Bld) A [facility] Platelets LM Ql (Bld)Ordered By: Jaydon Driscoll on 06-20-2024 Platelet estimate A [facility] Polychromasia LM Ql (Bld)Ord ered By: Jaydon Driscoll on 06-20-2024 Blood polychromasia detection by light microscopy 1+ [facility] Procalcitonin IA [Mass/Vol]O rdered By: Jaydon Driscoll on 06-20-2024 Procalcitonin [Mass/volume] in Serum or Plasma by Immunoassay 0.10 ng/mL <0.11 [facility] Procalcitonin [Mass/volume] in Serum or Plasma by ImmunoassayOrdered By: Jaydon Driscoll on 06-20-2024 Procalcitonin IA [Mass/Vol] 0.10 ng/mL <0.11 [facility] Protein Test strip Ql (U)Ord ered By: Jaydon Driscoll on 06-20-2024 Protein Ql (U) 30 mg/dl High Negative [facility] Urine protein assay by test strip, semi-quantitative 30 mg/dl High Negative [facility] Prothrombin timeOrdered By: Jaydon Driscoll on 06-20-2024 PT Coag (PPP) [Time] 13.4 s 11.7-14.9 [facility] Prothrombin time 13.4 SECONDS 11.7-14.9 [facility] Respiratory pathogens detect ion panel by molecular detection methodOrdered By: Mable Pritchard on 06-20-2024 Respiratory pathogens DNA and RNA panel JUSTIN+probe (Resp) [facility] Specific gravity (U) [Rel de nsity]Ordered By: Jaydon Driscoll on 06-20-2024 Urine specific gravity measurement 1.010 1.002-1.030 [facility] Squamous epithelial cells de tection in urine sediment by light microscopyOrdered By: Jaydon Driscoll on 06-20-2024 Epithelial cells.squamous LM Ql (Urine sed) 0-5 SEEN /hpf 0-5 [facility] Total carbon dioxide measure mentOrdered By: Eva Marie on 06-20-2024 CO2 [Moles/Vol] 35 mmol/L [facility] Total carbon dioxide measurement 35 mmol/L [facility] Transitional cells detection in urine sediment by light microscopyOrdered By: Jaydon Driscoll on 06-20-2024 Transitional cells LM Ql (Urine sed) 0-5 SEEN /hpf 0-5 [facility] Urine Legionella pneumophila antigen detectionOrdered By: Mable Pritchard on 06-20-2024 L. pneumophila Ag Ql (U) [facility] Urine blood detectionOrdered By: aJydon Driscoll on 06-20-2024 Urine blood detection 10 /ul High Negative [facility] Urine clarityOrdered By: Magali Driscoll on 06-20-2024 Clarity (U) Clear Clear [facility] Urine color determinationOrd ered By: Jaydon Driscoll on 06-20-2024 Color (U) Yellow Yellow [facility] Urine cultureOrdered By: Magali Driscoll on 06-20-2024 Bacteria identified Cx Nom (U) Yeast, not Elisha albicans Abnormal [facility] Urine culture Yeast, not Elisha albicans Abnormal [facility] Urine glucose detectionOrder ed By: Jaydon Driscoll on 06-20-2024 Glucose Ql (U) 1000 mg/dl High Normal [facility] Urine leukocyte esterase det ection by dipstickOrdered By: Jaydon Driscoll on 06-20-2024 Leukocyte esterase Test strip Ql (U) 25 /ul High Negative [facility] Urine pHOrdered By: Jaydon hinson on 06-20-2024 pH (U) 6.5 [pH] 5.0 - 8.0 [facility] Urine sediment bacteria coun t by microscopy (number/high power field)Ordered By: Jaydon Driscoll on 06-20-2024 Bacteria LM.HPF (Urine sed) [#/Area] 1 /[HPF] None Seen [facility] Urine specific gravity measu rementOrdered By: Jaydon Driscoll on 06-20-2024 Specific gravity (U) [Rel density] 1.010 1.002-1.030 [facility] Urine total bilirubin detect ion by test stripOrdered By: Jaydon Driscoll on 06-20-2024 Urine total bilirubin detection by test strip Negative Negative [facility] Urine urobilinogen measureme ntOrdered By: Jaydon Driscoll on 06-20-2024 Urobilinogen Ql (U) Normal mg/dl Normal [facility] Urobilinogen Ql (U)Ordered B y: Jaydon Driscoll on 06-20-2024 Urine urobilinogen measurement Normal mg/dl Normal [facility] White blood cell countOrdere d By: Jaydon Driscoll on 06-20-2024 White blood cell count 10-25 SEEN /hpf 0-5 [facility] White blood cell count 10-25 SEEN /hpf 0-5 [facility] aPTT Coag (PPP) [Time]Ordere d By: Jaydon Driscoll on 06-20-2024 Activated partial thromboplastin time (aPTT) in platelet poor plasma by coagulation a 21.3 Seconds Low 24.1-36.2 [facility] pH (U)Ordered By: Jaydon pollock on 06-20-2024 Urine pH 6.5 5.0 - 8.0 [facility] pH (Unsp spec)Ordered By: Henrique Marie on 06-20-2024 Measurement, pH 7.46 High 7.35-7.45 [facility] ALP [Catalytic activity/Vol] Ordered By: Tobi Zapata on 04-27-2024 Serum or plasma alkaline phosphatase measurement 73 U/L 40-129 [facility] ALT [Catalytic activity/Vol] Ordered By: Tobi Zapata on 04-27-2024 Serum or plasma alanine aminotransferase (ALT) measurement 13 U/L <47 [facility] Absolute lymphocyte countOrd ered By: Tobi Zapata on 04-27-2024 Lymphocytes Auto (Unsp spec) [#/Vol] 1.47 10*3/uL 0.83-4.51 [facility] Absolute neutrophil countOrd ered By: Tobi Zapata on 04-27-2024 Absolute neutrophil count 5.8 X10^3/uL 2.0-7.7 [facility] Albumin [Mass/Vol]Ordered By : Tobi Zapata on 04-27-2024 Serum or plasma albumin measurement (mass/volume) 3.9 g/dL 3.4-4.8 [facility] Albumin/Globulin [Mass ratio ]Ordered By: Tobi Zapata on 04-27-2024 Serum or plasma albumin/globulin mass ratio 1.5 RATIO 0.9-2.4 [facility] Anion gap [Moles/Vol]Ordered By: Tobi Zapata on 04-27-2024 Anion gap in Serum or Plasma 10 5-15 [facility] Anion gap in Serum or Plasma Ordered By: Tobi Zapata on 04-27-2024 Anion gap [Moles/Vol] 10 mmol/L 5-15 [facility] Automated lymphocyte count a s percentage of total leukocytesOrdered By: Tobi Zapata on 04-27-2024 Lymphocytes/100 WBC Auto (Unsp spec) 17.7 % Low 19-41 [facility] BUN/creatinine ratioOrdered By: Tobi Zapata on 04-27-2024 Urea nitrogen/Creatinine [Mass ratio] 17.8 mg/mg 10-20 [facility] BUN/creatinine ratio 17.8 RATIO 10-20 [facility] Basophil percentageOrdered B y: Tobi Zapata on 04-27-2024 Basophils/100 WBC (Bld) 0.4 % 0-1 [facility] Basophil percentage 0.4 % 0-1 [facility] Bilirubin, totalOrdered By: Tobi Zapata on 04-27-2024 Bilirubin [Mass/Vol] 0.42 mg/dL 0.00-1.30 [facility] Bilirubin, total 0.42 mg/dL 0.00-1.30 [facility] Blood polychromasia detectio n by light microscopyOrdered By: Tobi Zapata on 04-27-2024 Polychromasia LM Ql (Bld) 1+ [facility] CRP [Mass/Vol]Ordered By: Fabiana Zapata on 04-27-2024 Serum or plasma C reactive protein measurement (mass/volume) 11.90 mg/L High 0.0-3.0 [facility] Calcium [Mass/Vol]Ordered By : Tobi Zapata on 04-27-2024 Serum or plasma calcium measurement (mass/volume) 8.8 mg/dL 7.6-11.0 [facility] Calculated total iron bindin g capacityOrdered By: Tobi Zapata on 04-27-2024 Calculated total iron binding capacity 252 ug/dL 250-450 [facility] Carbon dioxide, total [Moles /volume] in Central venous bloodOrdered By: Tobi Zapata on 04-27-2024 CO2 [Moles/Vol] 32.7 mmol/L High 21.0-32.0 [facility] Carbon dioxide, total [Moles/volume] in Central venous blood 32.7 mmol/L High 21.0-32.0 [facility] Chloride assayOrdered By: Fabiana Zapata on 04-27-2024 Chloride [Moles/Vol] 102 mmol/L 98-108 [facility] Chloride assay 102 mmol/L 98-108 [facility] Cobalamin (Vitamin B12) [Mas s/Vol]Ordered By: Tobi Zapata on 04-27-2024 Vitamin B12 ser/plas 767 pg/mL 180-914 [facility] Creatinine [Mass/Vol]Ordered By: Tobi Zapata on 04-27-2024 Serum creatinine measurement (mass/volume) 1.38 mg/dL High 0.70-1.20 [facility] ESR (Bld) [Velocity]Ordered By: Tobi Zapata on 04-27-2024 Erythrocyte sedimentation rate 25 mm/hr High 0-20 [facility] Eosinophil percentageOrdered By: Tobi Zapata on 04-27-2024 Eosinophils/100 WBC (Bld) 3.3 % 0-5 [facility] Eosinophil percentage 3.3 % 0-5 [facility] Erythrocyte distribution wid th (RBC) [Ratio]Ordered By: Tobi Zapata on 04-27-2024 Erythrocyte distribution width ratio 18.6 % High 11.6-14.6 [facility] Erythrocyte distribution width standard deviation 60.6 fl High 35.1-43.9 [facility] Erythrocyte distribution wid th ratioOrdered By: Tobi Zapata on 04-27-2024 Erythrocyte distribution width (RBC) [Ratio] 18.6 % High 11.6-14.6 [facility] Erythrocyte distribution wid th standard deviationOrdered By: Tobi Zapata on 04-27-2024 Erythrocyte distribution width (RBC) [Ratio] 60.6 fl High 35.1-43.9 [facility] Erythrocyte sedimentation ra teOrdered By: Tobi Zapata on 04-27-2024 ESR (Bld) [Velocity] 25 mm/h High 0-20 [facility] Erythropoietin (EPO) QnOrder ed By: Tobi Zapata on 04-27-2024 Serum or plasma erythropoietin (EPO) measurement (units/volume) 23.0 mIU/mL High 2.6-18.5 [facility] Estimation of creatinine montez aranceOrdered By: Tobi Zapata on 04-27-2024 Estimation of creatinine clearance 56.53 ml/min 50-250 [facility] Ferritin [Mass/Vol]Ordered B y: Tobi Zapata on 04-27-2024 Serum or plasma ferritin measurement (mass/volume) 80 ng/mL 37-417 [facility] Folate [Mass/Vol]Ordered By: Tobi Zapata on 04-27-2024 Folate [Mass/volume] in Serum or Plasma 7.25 ng/mL 4.60-34.80 [facility] Folate [Mass/volume] in Seru m or PlasmaOrdered By: Tobi Zapata on 04-27-2024 Folate [Mass/Vol] 7.25 ng/mL 4.60-34.80 [facility] GFR/1.73 sq M.predicted idania g non-blacks MDRD (S/P/Bld) [Vol rate/Area]Ordered By: Tobi Zapata on 04-27-2024 Glomerular filtration rate (GFR) estimation/1.73 sq m using serum, plasma, or whole b 54 Low >60 [facility] Glomerular filtration rate ( GFR) estimation/1.73 sq m using serum, plasma, or whole bOrdered By: Tobi Zapata on 04-27-2024 GFR/1.73 sq M.predicted among non-blacks MDRD (S/P/Bld) [Vol rate/Area] 54 mL/min/{1.73_m2} Low >60 [facility] Glucose [Mass/Vol]Ordered By : Tobi Zapata on 04-27-2024 Serum glucose measurement (mass/volume) 144 mg/dL High 70-99 [facility] Hematocrit Auto (Bld) [Volum e fraction]Ordered By: Tobi Zapata on 04-27-2024 Hematocrit (Bld) [Volume fraction] 29.2 % Low 40-54 [facility] Automated blood hematocrit (percentage) 29.2 % Low 40-54 [facility] Hemoglobin (Reticulocytes) [ Entitic mass]Ordered By: Tobi Zapata on 04-27-2024 Reticulocyte hemoglobin equivalent (RET-He) measurement 26.6 pg Low 30-35 [facility] Hemoglobin measurementOrdere d By: Tobi Zapata on 04-27-2024 Hemoglobin (Bld) [Mass/Vol] 8.7 g/dL Low 13.0-16.5 [facility] Hemoglobin measurement 8.7 g/dL Low 13.0-16.5 [facility] Immature granulocytes/100 WB C Auto (Bld)Ordered By: Tobi Zapata on 04-27-2024 Immature granulocytes/100 WBC (Bld) 0.700 % 0.0-0.9 [facility] Automated immature granulocyte percentage 0.700 % 0.0-0.9 [facility] Immature platelet percentage Ordered By: Tobi Zapata on 04-27-2024 Platelets reticulated/100 platelets Auto (Bld) 3.7 % 1.0-7.9 [facility] Immature reticulocyte fracti onOrdered By: Tobi Zapata on 04-27-2024 Immature reticulocyte fraction 29.90 % High 3.00-15.90 [facility] Iron (Unsp spec) [Mass/Mass] Ordered By: Tobi Zapata on 04-27-2024 Iron measurement (mass/mass) 40 ug/dL Low 65-175 [facility] Iron measurement (mass/mass) Ordered By: Tobi Zapata on 04-27-2024 Iron (Unsp spec) [Mass/Mass] 40 ug/dL Low 65-175 [facility] Iron saturation [Mass fracti on]Ordered By: Tobi Zapata on 04-27-2024 Serum or plasma iron saturation measurement (mass fraction) 15.9 % 15.0-55.0 [facility] Lactate dehydrogenase (LDH) measurementOrdered By: Tobi Zapata on 04-27-2024 Lactate dehydrogenase (LDH) measurement 207 U/L 87-241 [facility] Lymphocytes Auto (Unsp spec) [#/Vol]Ordered By: Tobi Zapata on 04-27-2024 Absolute lymphocyte count 1.47 X10^3/uL 0.83-4.51 [facility] Lymphocytes/100 WBC Auto (Un sp spec)Ordered By: Tobi Zapata on 04-27-2024 Automated lymphocyte count as percentage of total leukocytes 17.7 % Low 19-41 [facility] MCV (RBC) [Entitic vol]Order ed By: Tobi Zapata on 04-27-2024 MCV (mean corpuscular volume) determination 89.0 fL 80-94 [facility] MCV (mean corpuscular volume ) determinationOrdered By: Tobi Zapata on 04-27-2024 MCV (RBC) [Entitic vol] 89.0 fL 80-94 [facility] Magnesium (Unsp spec) [Mass/ Vol]Ordered By: Tobi Zapata on 04-27-2024 Magnesium measurement (mass/volume) 1.9 mg/dL 1.5-2.2 [facility] Magnesium measurement (mass/ volume)Ordered By: Tobi Zapata on 04-27-2024 Magnesium (Unsp spec) [Mass/Vol] 1.9 mg/dL 1.5-2.2 [facility] Mean corpuscular hemoglobin (MCH) determinationOrdered By: Tobi Zapata on 04-27-2024 MCH (RBC) [Entitic mass] 26.5 pg Low 27.0-32.0 [facility] Mean corpuscular hemoglobin (MCH) determination 26.5 pg Low 27.0-32.0 [facility] Mean corpuscular hemoglobin concentration (MCHC) determinationOrdered By: Tobi Zapata on 04-27-2024 Mean corpuscular hemoglobin concentration (MCHC) determination 29.8 g/dL Low 32-36 [facility] Mean platelet volume determi nationOrdered By: Tobi Zapata on 04-27-2024 Mean platelet volume determination 10.3 fl 6.2-12.0 [facility] Monocyte percentageOrdered B y: Tobi Zapata on 04-27-2024 Monocytes/100 WBC (Bld) 7.6 % 0-10 [facility] Monocyte percentage 7.6 % 0-10 [facility] Neutrophil percentageOrdered By: Tobi Zapata on 04-27-2024 Neutrophils/100 WBC (Bld) 70.3 % High 47-70 [facility] Neutrophil percentage 70.3 % High 47-70 [facility] No Panel InformationOrdered By: Tobi Zapata on 04-27-2024 12 U/L <38 [facility] 212 ug/dL Low 228-428 [facility] Nucleated red blood cell per centageOrdered By: Tobi Zapata on 04-27-2024 Nucleated red blood cell percentage 0.5 % 0-5 [facility] Ovalocyte detectionOrdered B y: Tobi Zapata on 04-27-2024 Ovalocytes LM Ql (Bld) 2+ [facility] Ovalocytes LM Ql (Bld)Ordere d By: Tobi Zapata on 04-27-2024 Ovalocyte detection 2+ [facility] Platelet countOrdered By: Fabiana Zapata on 04-27-2024 Platelets (Bld) [#/Vol] 228 10*3/uL 150-450 [facility] Platelet count 228 K/mm3 150-450 [facility] Platelet estimateOrdered By: Tobi Zapata on 04-27-2024 Platelets LM Ql (Bld) a ADEQ [facility] Platelets LM Ql (Bld)Ordered By: Tobi Zapata on 04-27-2024 Platelet estimate a [facility] Platelets reticulated/100 pl atelets Auto (Bld)Ordered By: Tobi Zapata on 04-27-2024 Immature platelet percentage 3.7 % 1.0-7.9 [facility] Polychromasia LM Ql (Bld)Ord ered By: Tobi Zapata on 04-27-2024 Blood polychromasia detection by light microscopy 1+ [facility] Potassium (Unsp spec) [Mass/ Vol]Ordered By: Tobi Zapata on 04-27-2024 Potassium measurement (mass/volume) 4.2 mmol/L 3.3-5.1 [facility] Potassium measurement (mass/ volume)Ordered By: Tobi Zapata on 04-27-2024 Potassium (Unsp spec) [Mass/Vol] 4.2 mmol/L 3.3-5.1 [facility] RBC Auto (Bld) [#/Vol]Ordere d By: Tobi Zapata on 04-27-2024 RBC (Bld) [#/Vol] 3.28 10*6/uL Low 4.6-6.2 [facility] Automated blood erythrocyte count 3.28 M/mm3 Low 4.6-6.2 [facility] Reticulocyte hemoglobin equi valent (RET-He) measurementOrdered By: Tobi Zapata on 04-27-2024 Hemoglobin (Reticulocytes) [Entitic mass] 26.6 pg Low 30-35 [facility] Reticulocytes Auto (Bld) [#/ Vol]Ordered By: Tobi Zapata on 04-27-2024 Reticulocytes/100 RBC (Bld) 1.82 % High 0.5-1.5 [facility] Automated blood reticulocytes count (number/volume) 1.82 % High 0.5-1.5 [facility] Serum creatinine measurement (mass/volume)Ordered By: Tobi Zapata on 04-27-2024 Creatinine [Mass/Vol] 1.38 mg/dL High 0.70-1.20 [facility] Serum globulin measurementOr dered By: Tobi Zapata on 04-27-2024 Globulin (S) [Mass/Vol] 2.5 g/dL 2.2-4.2 [facility] Serum globulin measurement 2.5 g/dL 2.2-4.2 [facility] Serum glucose measurement (m ass/volume)Ordered By: Tobi Zapata on 04-27-2024 Glucose [Mass/Vol] 144 mg/dL High 70-99 [facility] Serum or plasma C reactive p rotein measurement (mass/volume)Ordered By: Tobi Zapata on 04-27-2024 CRP [Mass/Vol] 11.90 mg/L High 0.0-3.0 [facility] Serum or plasma alanine barber otransferase (ALT) measurementOrdered By: Tobi Zapata on 04-27-2024 ALT [Catalytic activity/Vol] 13 U/L <47 [facility] Serum or plasma albumin yocasta urement (mass/volume)Ordered By: Tobi Zapata on 04-27-2024 Albumin [Mass/Vol] 3.9 g/dL 3.4-4.8 [facility] Serum or plasma albumin/glob ulin mass ratioOrdered By: Tobi Zapata on 04-27-2024 Albumin/Globulin [Mass ratio] 1.5 {ratio} 0.9-2.4 [facility] Serum or plasma alkaline justin sphatase measurementOrdered By: Tobi Zapata on 04-27-2024 ALP [Catalytic activity/Vol] 73 U/L 40-129 [facility] Serum or plasma calcium yocasta urement (mass/volume)Ordered By: Tobi Zapata on 04-27-2024 Calcium [Mass/Vol] 8.8 mg/dL 7.6-11.0 [facility] Serum or plasma erythropoiet in (EPO) measurement (units/volume)Ordered By: Tobi Zapata on 04-27-2024 Erythropoietin (EPO) Qn 23.0 mIU/mL High 2.6-18.5 [facility] Serum or plasma ferritin vasquez surement (mass/volume)Ordered By: Tobi Zapata on 04-27-2024 Ferritin [Mass/Vol] 80 ng/mL 37-417 [facility] Serum or plasma iron saturat ion measurement (mass fraction)Ordered By: Tobi Zapata on 04-27-2024 Iron saturation [Mass fraction] 15.9 % 15.0-55.0 [facility] Serum or plasma urea nitroge n measurement (mass/volume)Ordered By: Tobi Zapata on 04-27-2024 Urea nitrogen [Mass/Vol] 25 mg/dL High 4-19 [facility] Serum phosphorus measurement Ordered By: Tobi Zapata on 04-27-2024 Serum phosphorus measurement 4.2 mg/dL 2.7-4.5 [facility] Sodium levelOrdered By: Dimas Zapata on 04-27-2024 Sodium [Moles/Vol] 145 mmol/L 133-145 [facility] Sodium level 145 mmol/L 133-145 [facility] Total proteinOrdered By: Mikael Zapata on 04-27-2024 Protein [Mass/Vol] 6.4 g/dL 5.9-8.4 [facility] Total protein 6.4 g/dL 5.9-8.4 [facility] Urea nitrogen [Mass/Vol]Orde red By: Tobi Zapata on 04-27-2024 Serum or plasma urea nitrogen measurement (mass/volume) 25 mg/dL High 4-19 [facility] Vitamin B12 ser/plasOrdered By: Tobi Zapata on 04-27-2024 Cobalamin (Vitamin B12) [Mass/Vol] 767 pg/mL 180-914 [facility] White blood cell (WBC) count Ordered By: Tobi Zapata on 04-27-2024 WBC (Bld) [#/Vol] 8.3 10*3/uL 4.4-11.0 [facility] White blood cell (WBC) count 8.3 K/mm3 4.4-11.0 [facility] Absolute lymphocyte countOrd ered By: Huang Lazcano on 04-08-2024 Lymphocytes Auto (Unsp spec) [#/Vol] 0.44 10*3/uL Low 0.83-4.51 [facility] Absolute neutrophil countOrd ered By: Huang Lazcano on 04-08-2024 Absolute neutrophil count 8.3 X10^3/uL High 2.0-7.7 [facility] Automated lymphocyte count a s percentage of total leukocytesOrdered By: Huang Lazcano on 04-08-2024 Lymphocytes/100 WBC Auto (Unsp spec) 4.7 % Low 19-41 [facility] Basophil percentageOrdered B y: Huang Lazcano on 04-08-2024 Basophils/100 WBC (Bld) 0.1 % 0-1 [facility] Basophil percentage 0.1 % 0-1 [facility] Blood urea nitrogen (BUN)/cr eatinine ratioOrdered By: Huang Lazcano on 04-08-2024 Blood urea nitrogen (BUN)/creatinine ratio 30.6 RATIO High 10-20 [facility] Calcium [Mass/Vol]Ordered By : Huang Lazcano on 04-08-2024 Serum or plasma calcium measurement (mass/volume) 8.5 mg/dL 8.5-10.1 [facility] Carbon dioxide measurementOr dered By: Huang Lazcano on 04-08-2024 CO2 [Moles/Vol] 29.0 mmol/L 21.0-32.0 [facility] Carbon dioxide measurement 29.0 mmol/L 21.0-32.0 [facility] Chloride measurementOrdered By: Huang Lazcano on 04-08-2024 Chloride [Moles/Vol] 110 mmol/L High 98-107 [facility] Chloride measurement 110 mmol/L High 98-107 [facility] Creatinine [Mass/Vol]Ordered By: Huang Lazcano on 04-08-2024 Serum or plasma creatinine measurement (mass/volume) 1.47 mg/dL High 0.70-1.30 [facility] Eosinophil percentageOrdered By: Huang Lazcano on 04-08-2024 Eosinophils/100 WBC (Bld) 0.0 % 0-5 [facility] Eosinophil percentage 0.0 % 0-5 [facility] Erythrocyte distribution wid th (RBC) [Ratio]Ordered By: Huang Lazcano on 04-08-2024 Erythrocyte distribution width ratio 17.1 % High 11.6-14.6 [facility] Erythrocyte distribution width standard deviation 54.2 fl High 35.1-43.9 [facility] Erythrocyte distribution wid th ratioOrdered By: Huang Lazcano on 04-08-2024 Erythrocyte distribution width (RBC) [Ratio] 17.1 % High 11.6-14.6 [facility] Erythrocyte distribution wid th standard deviationOrdered By: Huang Lazcano on 04-08-2024 Erythrocyte distribution width (RBC) [Ratio] 54.2 fl High 35.1-43.9 [facility] Estimated glomerular filtrat ion rate (GFR) AmericanOrdered By: Huang Lazcano on 04-08-2024 Estimated glomerular filtration rate (GFR) 60 mL/min >60 [facility] Estimation of creatinine montez aranceOrdered By: Huang Lazcano on 04-08-2024 Estimation of creatinine clearance 52.92 ml/min [facility] Glomerular filtration rate ( GFR) estimationOrdered By: Huang Lazcano on 04-08-2024 GFR/1.73 sq M.predicted among non-blacks MDRD (S/P/Bld) [Vol rate/Area] 50 mL/min/{1.73_m2} Low >60 [facility] Glomerular filtration rate (GFR) estimation 50 mL/min Low >60 [facility] Glucose measurementOrdered B y: Huang Lazcano on 04-08-2024 Glucose [Mass/Vol] 340 mg/dL High 74-106 [facility] Glucose measurement 340 mg/dL High 74-106 [facility] Glucose measurement at bedsi deOrdered By: Huang Lazcano on 04-08-2024 Glucose [Mass/Vol] 314 mg/dL High 74-106 [facility] Glucose measurement at bedside 314 mg/dL High 74-106 [facility] Hematocrit Auto (Bld) [Volum e fraction]Ordered By: Huang Lazcano on 04-08-2024 Hematocrit (Bld) [Volume fraction] 28.2 % Low 40-54 [facility] Automated blood hematocrit (percentage) 28.2 % Low 40-54 [facility] Hemoglobin measurementOrdere d By: Huang Lazcano on 04-08-2024 Hemoglobin (Bld) [Mass/Vol] 8.6 g/dL Low 13.0-16.5 [facility] Hemoglobin measurement 8.6 g/dL Low 13.0-16.5 [facility] Immature granulocytes/100 WB C Auto (Bld)Ordered By: Huang Lazcano on 04-08-2024 Immature granulocytes/100 WBC (Bld) 1.200 % High 0.0-0.9 [facility] Automated immature granulocyte percentage 1.200 % High 0.0-0.9 [facility] Lymphocytes Auto (Unsp spec) [#/Vol]Ordered By: Huang Lazcano on 04-08-2024 Absolute lymphocyte count 0.44 X10^3/uL Low 0.83-4.51 [facility] Lymphocytes/100 WBC Auto (Un sp spec)Ordered By: Huang Lazcano on 04-08-2024 Automated lymphocyte count as percentage of total leukocytes 4.7 % Low 19-41 [facility] MCV (RBC) [Entitic vol]Order ed By: Huang Lazcano on 04-08-2024 MCV (mean corpuscular volume) determination 87.6 fL 80-94 [facility] MCV (mean corpuscular volume ) determinationOrdered By: Huang Lazcano on 04-08-2024 MCV (RBC) [Entitic vol] 87.6 fL 80-94 [facility] Mean corpuscular hemoglobin (MCH) determinationOrdered By: Huang Lazcano on 04-08-2024 MCH (RBC) [Entitic mass] 26.7 pg Low 27.0-32.0 [facility] Mean corpuscular hemoglobin (MCH) determination 26.7 pg Low 27.0-32.0 [facility] Mean corpuscular hemoglobin concentration (MCHC) determinationOrdered By: Huang Lazcano on 04-08-2024 Mean corpuscular hemoglobin concentration (MCHC) determination 30.5 g/dL Low 32-36 [facility] Mean platelet volume determi nationOrdered By: Huang Lazcano on 04-08-2024 Mean platelet volume determination 11.3 fl 6.2-12.0 [facility] Monocyte percentageOrdered B y: Huang Lazcano on 04-08-2024 Monocytes/100 WBC (Bld) 5.8 % 0-10 [facility] Monocyte percentage 5.8 % 0-10 [facility] Neutrophil percentageOrdered By: Huang Lazcano on 04-08-2024 Neutrophils/100 WBC (Bld) 88.2 % High 47-70 [facility] Neutrophil percentage 88.2 % High 47-70 [facility] Nucleated red blood cell per centageOrdered By: Huang Lazcano on 04-08-2024 Nucleated red blood cell percentage 0.5 % 0-5 [facility] Platelet countOrdered By: Bessie Lazcano on 04-08-2024 Platelets (Bld) [#/Vol] 308 10*3/uL 150-450 [facility] Platelet count 308 K/mm3 150-450 [facility] Potassium measurementOrdered By: Huang Lazcano on 04-08-2024 Potassium [Moles/Vol] 4.6 mmol/L 3.5-5.1 [facility] Potassium measurement 4.6 mmol/L 3.5-5.1 [facility] RBC Auto (Bld) [#/Vol]Ordere d By: Huang Lazcano on 04-08-2024 RBC (Bld) [#/Vol] 3.22 10*6/uL Low 4.6-6.2 [facility] Automated blood erythrocyte count 3.22 M/mm3 Low 4.6-6.2 [facility] Serum anion gap measurementO rdered By: Huang Lazcano on 04-08-2024 Serum anion gap measurement 4 Low 5-15 [facility] Serum or plasma calcium yocasta urement (mass/volume)Ordered By: Huang Lazcano on 04-08-2024 Calcium [Mass/Vol] 8.5 mg/dL 8.5-10.1 [facility] Serum or plasma creatinine m easurement (mass/volume)Ordered By: Huang Lazcano on 04-08-2024 Creatinine [Mass/Vol] 1.47 mg/dL High 0.70-1.30 [facility] Serum or plasma urea nitroge n measurement (mass/volume)Ordered By: Huang Lazcano on 04-08-2024 Urea nitrogen [Mass/Vol] 45 mg/dL High 7-18 [facility] Sodium levelOrdered By: Anam Lazcano on 04-08-2024 Sodium [Moles/Vol] 143 mmol/L 136-145 [facility] Sodium level 143 mmol/L 136-145 [facility] Urea nitrogen [Mass/Vol]Orde red By: Huang Lazcano on 04-08-2024 Serum or plasma urea nitrogen measurement (mass/volume) 45 mg/dL High 7-18 [facility] White blood cell (WBC) count Ordered By: Huang Lazcano on 04-08-2024 WBC (Bld) [#/Vol] 9.4 10*3/uL 4.4-11.0 [facility] White blood cell (WBC) count 9.4 K/mm3 4.4-11.0 [facility] Gram stainOrdered By: Anthony Singleton on 04-06-2024 Microscopic observation Gram stain Nom (Unsp spec) [facility] HbA1c (Bld) [Mass fraction]O rdered By: Jordan Driscoll on 04-06-2024 Hemoglobin A1c percentage 9.2 % High 3.8-5.6 [facility] Hemoglobin A1c percentageOrd ered By: Jordan Driscoll on 04-06-2024 HbA1c (Bld) [Mass fraction] 9.2 % High 3.8-5.6 [facility] Microbial respiratory cultur eOrdered By: Anthony Singleton on 04-06-2024 Microorganism identified Cx Nom (Unsp spec) Meth. resistant Staph. aureus Abnormal [facility] Microorganism identified Cx Nom (Unsp spec)Ordered By: Anthony Singleton on 04-06-2024 Microbial respiratory culture Meth. resistant Staph. aureus Abnormal [facility] ALP [Catalytic activity/Vol] Ordered By: Malachi Paredes on 04-05-2024 Serum or plasma alkaline phosphatase measurement 69 U/L 45-117 [facility] ALT [Catalytic activity/Vol] Ordered By: Malachi Paredes on 04-05-2024 Serum or plasma alanine aminotransferase (ALT) measurement 12 U/L Low 16-61 [facility] Activated partial thrombopla stin time (aPTT) in platelet poor plasma by coagulation aOrdered By: Malachi Paredes on 04-05-2024 aPTT Coag (PPP) [Time] 25.4 s 24.1-36.2 [facility] Albumin [Mass/Vol]Ordered By : Malachi Paredes on 04-05-2024 Serum or plasma albumin measurement (mass/volume) 3.1 g/dL Low 3.2-5.0 [facility] Albumin to globulin ratioOrd ered By: Malachi Paredes on 04-05-2024 Albumin to globulin ratio 0.8 RATIO Low 0.9-2.4 [facility] BNP (brain natriuretic pepti de measurement)Ordered By: Jordan Driscoll on 04-05-2024 Natriuretic peptide B (Bld) [Mass/Vol] 476.6 pg/mL High 0-100 [facility] BNP (brain natriuretic peptide measurement) 476.6 pg/mL High 0-100 [facility] Bacteria LM.HPF (Urine sed) [#/Area]Ordered By: Malachi Paredes on 04-05-2024 Urine sediment bacteria count by microscopy (number/high power field) 1+ /hpf None Seen [facility] Base excess Calc (BldV) [Mol es/Vol]Ordered By: Jordan Driscoll on 04-05-2024 Venous blood base excess measurement 0 mmol/L -1.0-3.5 [facility] Bilirubin Test strip Ql (U)O rdered By: Malachi Paredes on 04-05-2024 Bilirubin Ql (U) Negative Negative [facility] Bilirubin, totalOrdered By: Malachi Paredes on 04-05-2024 Bilirubin [Mass/Vol] 0.40 mg/dL 0.20-1.00 [facility] Bilirubin, total 0.40 mg/dL 0.20-1.00 [facility] Blood cultureOrdered By: Charlie Paredes on 04-05-2024 Bacteria identified Cx Nom (Bld) No growth in 5 days. [facility] Blood culture No growth in 5 days. [facility] Bacteria identified Cx Nom (Bld) No growth in 5 days. [facility] Blood culture No growth in 5 days. [facility] CO2 (BldV) [Moles/Vol]Ordere d By: Jordan Driscoll on 04-05-2024 CO2 [Moles/Vol] 26 mmol/L 23-33 [facility] Venous blood total carbon dioxide measurement 26 mmol/L 23-33 [facility] CO2 (BldV) [Partial pressure ]Ordered By: Jordan Driscoll on 04-05-2024 Venous blood partial pressure of carbon dioxide measurement 41.2 mmHg 41-51 [facility] Clarity (U)Ordered By: Malachi Paredes on 04-05-2024 Urine clarity Cloudy Clear [facility] Color (U)Ordered By: Malachi Paredes on 04-05-2024 Urine color determination Yellow Yellow [facility] Determination of fraction of inspired oxygenOrdered By: Jordan Driscoll on 04-05-2024 Determination of fraction of inspired oxygen 6.0 [facility] Epithelial cells.squamous LM Ql (Urine sed)Ordered By: Malachi Paredes on 04-05-2024 Squamous epithelial cells detection in urine sediment by light microscopy 0-5 SEEN /hpf 0-5 [facility] Glucose Ql (U)Ordered By: Edi Paredes on 04-05-2024 Urine glucose detection 1000 mg/dl High Normal [facility] Influenza virus A and B and SARS-CoV-2 (COVID-19) and Respiratory syncytial virus RNAOrdered By: Malachi Paredes on 04-05-2024 SARS-CoV-2 (COVID-19) RNA JUSTIN+probe Ql (Unsp spec) [facility] International normalized rat io (INR) calculationOrdered By: Malachi Paredes on 04-05-2024 International normalized ratio (INR) calculation 1.0 [facility] Ketones Test strip Ql (U)Ord ered By: Malachi Paredes on 04-05-2024 Ketones Ql (U) Negative Negative [facility] Lactic acid measurementOrder ed By: Malachi Paredes on 04-05-2024 Lactic acid measurement 1.3 mmol/L 0.4-2.0 [facility] Leukocyte esterase Test stri p Ql (U)Ordered By: Malachi Paredes on 04-05-2024 Urine leukocyte esterase detection by dipstick 500 /ul High Negative [facility] Lower GI hemoglobin IA Ql (S tl)Ordered By: Malachi Paredes on 04-05-2024 Stool gastrointestinal hemoglobin detection by immunologic method Positive Abnormal [facility] Microscopic analysis of urin e for red blood cells (RBC)Ordered By: Malachi Paredes on 04-05-2024 Microscopic analysis of urine for red blood cells (RBC) 5-10 SEEN /hpf 0-5 [facility] Mucus LM Ql (Urine sed)Order ed By: Malachi Paredes on 04-05-2024 Mucus Ql (Urine sed) 0 SEEN /hpf [facility] Mucus detection in urine sediment by light microscopy 0 SEEN /hpf [facility] Nitrite Test strip Ql (U)Ord ered By: Malachi Paredes on 04-05-2024 Nitrite Ql (U) Negative Negative [facility] No Panel InformationOrdered By: Jordan Driscoll on 04-05-2024 LEONEL [facility] Not entered [facility] Cannula [facility] Air bubble in sample [facility] No Panel InformationOrdered By: Malachi Paredes on 04-05-2024 6 U/L Low 15-37 [facility] Oxygen (BldV) [Partial press ure]Ordered By: Jordan Driscoll on 04-05-2024 Venous blood partial pressure of oxygen measurement 138 mmHg High 25-40 [facility] Protein Test strip Ql (U)Ord ered By: Malachi Paredes on 04-05-2024 Protein Ql (U) 30 mg/dl High Negative [facility] Urine protein assay by test strip, semi-quantitative 30 mg/dl High Negative [facility] Prothrombin timeOrdered By: Malachi Paredes on 04-05-2024 PT Coag (PPP) [Time] 13.6 s 11.7-14.9 [facility] Prothrombin time 13.6 SECONDS 11.7-14.9 [facility] Serum globulin measurementOr dered By: Malachi Paredes on 04-05-2024 Globulin (S) [Mass/Vol] 4.0 g/dL 2.2-4.2 [facility] Serum globulin measurement 4.0 g/dL 2.2-4.2 [facility] Serum or plasma alanine barber otransferase (ALT) measurementOrdered By: Malachi Paredes on 04-05-2024 ALT [Catalytic activity/Vol] 12 U/L Low 16-61 [facility] Serum or plasma albumin yocasta urement (mass/volume)Ordered By: Malachi Paredes on 04-05-2024 Albumin [Mass/Vol] 3.1 g/dL Low 3.2-5.0 [facility] Serum or plasma alkaline justin sphatase measurementOrdered By: Malachi Paredes on 04-05-2024 ALP [Catalytic activity/Vol] 69 U/L 45-117 [facility] Specific gravity (U) [Rel de nsity]Ordered By: Malachi Paredes on 04-05-2024 Urine specific gravity measurement 1.015 1.002-1.030 [facility] Squamous epithelial cells de tection in urine sediment by light microscopyOrdered By: Malachi Paredes on 04-05-2024 Epithelial cells.squamous LM Ql (Urine sed) 0-5 SEEN /hpf 0-5 [facility] Stool gastrointestinal hemog lobin detection by immunologic methodOrdered By: Malachi Paredes on 04-05-2024 Lower GI hemoglobin IA Ql (Stl) Positive Abnormal [facility] Total creatine kinase measur ementOrdered By: Jordan Driscoll on 04-05-2024 Total creatine kinase measurement 31 U/L Low 39-308 [facility] Total proteinOrdered By: Charlie Paredes on 04-05-2024 Protein [Mass/Vol] 7.1 g/dL 6.4-8.2 [facility] Total protein 7.1 g/dL 6.4-8.2 [facility] Troponin IOrdered By: Jordan Driscoll on 04-05-2024 Troponin I 33 pg/mL 3.0-78.0 [facility] Troponin I 33 pg/mL 3.0-78.0 [facility] Urine blood detectionOrdered By: Malachi Paredes on 04-05-2024 Urine blood detection 25 /ul High Negative [facility] Urine clarityOrdered By: Charlie Paredes on 04-05-2024 Clarity (U) Cloudy Clear [facility] Urine color determinationOrd ered By: Malachi Paredes on 04-05-2024 Color (U) Yellow Yellow [facility] Urine cultureOrdered By: Charlie Paredes on 04-05-2024 Bacteria identified Cx Nom (U) Positive Abnormal [facility] Urine culture Positive Abnormal [facility] Urine glucose detectionOrder ed By: Malachi Paredes on 04-05-2024 Glucose Ql (U) 1000 mg/dl High Normal [facility] Urine leukocyte esterase det ection by dipstickOrdered By: Malachi Paredes on 04-05-2024 Leukocyte esterase Test strip Ql (U) 500 /ul High Negative [facility] Urine pHOrdered By: Malachi Paredes on 04-05-2024 pH (U) 6.0 [pH] 5.0 - 8.0 [facility] Urine sediment bacteria coun t by microscopy (number/high power field)Ordered By: Malachi Paredes on 04-05-2024 Bacteria LM.HPF (Urine sed) [#/Area] 1 /[HPF] None Seen [facility] Urine sediment renal epithel ial cell count by microscopy (number/high power field)Ordered By: Malachi Paredes on 04-05-2024 Epithelial cells.renal LM.HPF (Urine sed) [#/Area] 5 /[HPF] 0-5 [facility] Urine sediment yeast count b y microscopy (number/high powered field)Ordered By: Malachi Paredes on 04-05-2024 Yeast LM.HPF (Urine sed) [#/Area] 3 /[HPF] None Seen [facility] Urine specific gravity measu rementOrdered By: Malachi Paredes on 04-05-2024 Specific gravity (U) [Rel density] 1.015 1.002-1.030 [facility] Urine total bilirubin detect ion by test stripOrdered By: Malachi Paredes on 04-05-2024 Urine total bilirubin detection by test strip Negative Negative [facility] Urine urobilinogen measureme ntOrdered By: Malachi Paredes on 04-05-2024 Urobilinogen Ql (U) Normal mg/dl Normal [facility] Urobilinogen Ql (U)Ordered B y: Maalchi Paredes on 04-05-2024 Urine urobilinogen measurement Normal mg/dl Normal [facility] Venous blood base excess vasquez surementOrdered By: Jordan Driscoll on 04-05-2024 Base excess Calc (BldV) [Moles/Vol] 0 mmol/L -1.0-3.5 [facility] Venous blood bicarbonate vasquez surementOrdered By: Jordan Driscoll on 04-05-2024 HCO3 (Bld) [Moles/Vol] 25 mmol/L - [facility] Venous blood bicarbonate measurement 25 mmol/L [facility] Venous blood oxygen saturati on measurementOrdered By: Jordan Driscoll on 04-05-2024 Venous blood oxygen saturation measurement 99 % High 50-70 [facility] Venous blood pH measurementO rdered By: Jordan Driscoll on 04-05-2024 pH (BldV) 7.39 [pH] 7.32-7.42 [facility] Venous blood partial pressur e of carbon dioxide measurementOrdered By: Jordan Driscoll on 04-05-2024 CO2 (BldV) [Partial pressure] 41.2 mm[Hg] 41-51 [facility] Venous blood partial pressur e of oxygen measurementOrdered By: Jordan Driscoll on 04-05-2024 Oxygen (BldV) [Partial pressure] 138 mm[Hg] High 25-40 [facility] White blood cell countOrdere d By: Malachi Paredes on 02-10-2025 White blood cell count >100 SEEN /hpf 0-5 [facility] White blood cell count >100 SEEN /hpf 0-5 [facility] Yeast LM.HPF (Urine sed) [#/ Area]Ordered By: Malachi Paredes on 04-05-2024 Urine sediment yeast count by microscopy (number/high powered field) 3+ /hpf None Seen [facility] aPTT Coag (PPP) [Time]Ordere d By: Malacih Paredes on 04-05-2024 Activated partial thromboplastin time (aPTT) in platelet poor plasma by coagulation a 25.4 Seconds 24.1-36.2 [facility] pH (BldV)Ordered By: Jordan avelar on 04-05-2024 Venous blood pH measurement 7.39 7.32-7.42 [facility] pH (U)Ordered By: Malachi Paredes on 04-05-2024 Urine pH 6.0 5.0 - 8.0 [facility] Microorganism identified Cx Nom (Unsp spec)Ordered By: GERA Naik on 03-05-2024 Microbial respiratory culture Pseudomonas aeruginosa Abnormal [facility] 59-UJ-Vpqacyg DOrdered By: Andre Will on 01-27-2024 82-ST-Mloniwr D 23.0 ng/mL [facility] Estimated glomerular filtrat ion rate (GFR) AmericanOrdered By: Tobi Zapata on 01-27-2024 Estimated glomerular filtration rate (GFR) 60 mL/min >60 [facility] HbA1c (Bld) [Mass fraction]O rdered By: Donna Will on 01-27-2024 Hemoglobin A1c percentage 9.2 % High 3.8-5.6 [facility] Hemoglobin A1c percentageOrd ered By: Donna Will on 01-27-2024 HbA1c (Bld) [Mass fraction] 9.2 % High 3.8-5.6 [facility] Serum or plasma thyroid stim ulating hormone (TSH) measurement (units/volume)Ordered By: Donna Will on 01-27-2024 TSH Qn 1.880 uIU/mL 0.358-3.740 [facility] TSH QnOrdered By: Donna francor on 01-27-2024 Serum or plasma thyroid stimulating hormone (TSH) measurement (units/volume) 1.880 uIU/mL 0.358-3.740 [facility] Absolute lymphocyte countOrd ered By: Tobi Zapata on 06-05-2023 Lymphocytes Auto (Unsp spec) [#/Vol] 1.84 10*3/uL 0.83-4.51 [facility] Activated partial thrombopla stin time (aPTT) in platelet poor plasma by coagulation aOrdered By: Tobi Zapata on 06-05-2023 aPTT Coag (PPP) [Time] 26.2 s 24.1-36.2 [facility] Automated lymphocyte count a s percentage of total leukocytesOrdered By: Tobi Zapata on 06-05-2023 Lymphocytes/100 WBC Auto (Unsp spec) 24.6 % 19-41 [facility] Basophil percentageOrdered B y: Tobi Zapata on 06-05-2023 Basophil percentage 9.2 g/dL 13.0-16.5 [facility] Basophils (Bld) [#/Vol] 7.5 10*3/uL 4.4-11.0 [facility] Basophils (Bld) [#/Vol] 4.6 10*3/uL 2.0-7.7 [facility] Basophils/100 WBC (Bld) 61.9 % 47-70 [facility] Basophils/100 WBC (Bld) 10.2 % 0-10 [facility] Basophils/100 WBC (Bld) 2.0 % 0-5 [facility] Basophils/100 WBC (Bld) 0.4 % 0-1 [facility] Determination of erythrocyte mean corpuscular volume (MCV)Ordered By: Tobi Zapata on 06-05-2023 MCV (RBC) [Entitic vol] 95.9 fL 80-94 [facility] Erythrocyte distribution wid th ratioOrdered By: Tobi Zapata on 06-05-2023 Erythrocyte distribution width (RBC) [Ratio] 17.9 % 11.6-14.6 [facility] Erythrocyte distribution wid th standard deviationOrdered By: Tobi Zapata on 06-05-2023 Erythrocyte distribution width (RBC) [Entitic vol] 61.8 fL 35.1-43.9 [facility] Hematocrit Auto (Bld) [Volum e fraction]Ordered By: Tobi Zapata on 06-05-2023 Hematocrit (Bld) [Volume fraction] 30.5 % 40-54 [facility] Immature granulocytes/100 WB C Auto (Bld)Ordered By: Tobi Zapata on 06-05-2023 Immature granulocytes/100 WBC (Bld) 0.900 % 0.0-0.9 [facility] No Panel InformationOrdered By: Tobi Benny on 06-05-2023 28.9 pg 27.0-32.0 [facility] 30.2 g/dL 32-36 [facility] 242 K/mm3 150-450 [facility] 11.1 fl 6.2-12.0 [facility] 0.4 % 0-5 [facility] 14.1 SECONDS 11.7-14.9 [facility] 1.1 [facility] RBC Auto (Bld) [#/Vol]Ordere d By: Tobi Zapata on 06-05-2023 RBC (Bld) [#/Vol] 3.18 10*6/uL 4.6-6.2 [facility] Absolute lymphocyte countOrd ered By: Tobi Zapata on 05-28-2023 Lymphocytes Auto (Unsp spec) [#/Vol] 1.41 10*3/uL 0.83-4.51 [facility] Automated lymphocyte count a s percentage of total leukocytesOrdered By: Tobi Zapata on 05-28-2023 Lymphocytes/100 WBC Auto (Unsp spec) 19.1 % 19-41 [facility] Basophil percentageOrdered B y: Tobi Zapata on 05-28-2023 Basophil percentage 8.5 g/dL 13.0-16.5 [facility] Basophil percentage 231 mg/dL 74-106 [facility] Basophil percentage 6.5 g/dL 6.4-8.2 [facility] Basophil percentage 0.50 mg/dL 0.20-1.00 [facility] Basophil percentage 141 mmol/L 136-145 [facility] Basophil percentage 4.6 mmol/L 3.5-5.1 [facility] Basophil percentage 107 mmol/L 98-107 [facility] Basophil percentage 201 U/L 87-241 [facility] Basophils (Bld) [#/Vol] 7.4 10*3/uL 4.4-11.0 [facility] Basophils (Bld) [#/Vol] 4.8 10*3/uL 2.0-7.7 [facility] Basophils/100 WBC (Bld) 65.0 % 47-70 [facility] Basophils/100 WBC (Bld) 10.2 % 0-10 [facility] Basophils/100 WBC (Bld) 3.8 % 0-5 [facility] Basophils/100 WBC (Bld) 0.5 % 0-1 [facility] Carcinoembryonic Ag [Mass/Vo l]Ordered By: Tobi Zapata on 05-28-2023 Serum or plasma carcinoembryonic antigen measurement (mass/volume) 3.4 ng/mL 0.0-4.7 [facility] Deamidated gliadin IgA antib lashon assayOrdered By: Tobi Zapata on 05-28-2023 Deamidated gliadin IgA antibody assay 3 units 0-19 [facility] Deamidated gliadin IgG antib lashon assayOrdered By: Tobi Zapata on 05-28-2023 Deamidated gliadin IgG antibody assay 2 units 0-19 [facility] Determination of erythrocyte mean corpuscular volume (MCV)Ordered By: Tobi Zapata on 05-28-2023 MCV (RBC) [Entitic vol] 95.3 fL 80-94 [facility] Endomysial IgA antibody assa yOrdered By: Tobi Zapata on 05-28-2023 Endomysial IgA antibody assay Negative Negative [facility] Erythrocyte distribution wid th ratioOrdered By: Tobi Zapata on 05-28-2023 Erythrocyte distribution width (RBC) [Ratio] 17.4 % 11.6-14.6 [facility] Erythrocyte distribution wid th standard deviationOrdered By: Tobi Zapata on 05-28-2023 Erythrocyte distribution width (RBC) [Entitic vol] 59.6 fL 35.1-43.9 [facility] Erythrocyte sedimentation ra teOrdered By: Tobi Zapata on 05-28-2023 ESR (Bld) [Velocity] 11 mm/h 0-20 [facility] HaptoglobinOrdered By: Stephen Zapata on 05-28-2023 Haptoglobin 150 mg/dL 34-355 [facility] Hematocrit Auto (Bld) [Volum e fraction]Ordered By: Tobi Zapata on 05-28-2023 Hematocrit (Bld) [Volume fraction] 28.5 % 40-54 [facility] Hemoglobin in reticulocytes (mass per reticulocyte)Ordered By: Tobi Zapata on 05-28-2023 Hemoglobin (Reticulocytes) [Entitic mass] 29.1 pg 30-35 [facility] Immature granulocytes/100 WB C Auto (Bld)Ordered By: Tobi Zapata on 05-28-2023 Immature granulocytes/100 WBC (Bld) 1.400 % 0.0-0.9 [facility] Iron measurement (mass/mass) Ordered By: Tobi Zapata on 05-28-2023 Iron (Unsp spec) [Mass/Mass] 43 ug/dL 65-175 [facility] No Panel InformationOrdered By: Tobi Zapata on 05-28-2023 28.4 pg 27.0-32.0 [facility] 29.8 g/dL 32-36 [facility] 210 K/mm3 150-450 [facility] 11.1 fl 6.2-12.0 [facility] 0 % 0-5 [facility] 31.50 % 3.00-15.90 [facility] 40 mL/min >60 [facility] 48 mL/min >60 [facility] 46.00 ml/min [facility] 18.5 RATIO 10-20 [facility] 3.2 g/dL 2.2-4.2 [facility] 1.0 RATIO 0.9-2.4 [facility] 71 U/L 45-117 [facility] 23 U/L 16-61 [facility] 29.0 mmol/L 21.0-32.0 [facility] 7.35 mg/L 0.0-3.0 [facility] 285 ug/dL 250-450 [facility] 28 ng/mL 26-388 [facility] RBC Auto (Bld) [#/Vol]Ordere d By: Tobi Zapata on 05-28-2023 RBC (Bld) [#/Vol] 2.99 10*6/uL 4.6-6.2 [facility] Reticulocytes Auto (Bld) [#/ Vol]Ordered By: Tobi Zapata on 05-28-2023 Reticulocytes/100 RBC (Bld) 3.18 % 0.5-1.5 [facility] Serum immunoglobulin A measu rementOrdered By: Tobi Zapata on 05-28-2023 Serum immunoglobulin A measurement 12 mg/dL Low 61-437 [facility] Serum or plasma calcium yocasta urement (mass/volume)Ordered By: Tobi Zapata on 05-28-2023 Calcium [Mass/Vol] 8.5 mg/dL 8.5-10.1 [facility] Serum or plasma carcinoembry onic antigen measurement (mass/volume)Ordered By: Tobi Zapata on 05-28-2023 Carcinoembryonic Ag [Mass/Vol] 3.4 ng/mL 0.0-4.7 [facility] Serum or plasma creatinine m easurement (mass/volume)Ordered By: Tobi Zapata on 05-28-2023 Creatinine [Mass/Vol] 1.78 mg/dL 0.70-1.30 [facility] Serum or plasma iron saturat ion measurement (mass fraction)Ordered By: Tobi Zapata on 05-28-2023 Iron saturation [Mass fraction] 15.1 % 15.0-55.0 [facility] Serum or plasma urea nitroge n measurement (mass/volume)Ordered By: Tobi Zapata on 05-28-2023 Urea nitrogen [Mass/Vol] 33 mg/dL 7-18 [facility] Serum tissue transglutaminas e (tTG) IgA antibody assay (units/volume)Ordered By: Tobi Zapata on 05-28-2023 Serum tissue transglutaminase (tTG) IgA antibody assay (units/volume) <2 U/mL 0-5 [facility] Serum tissue transglutaminas e IgA antibody assay (units/volume)Ordered By: Tobi Zapata on 05-28-2023 tTG IgA Qn (S) <2 U/mL 0-3 [facility] Thin prep Papanicolaou smear with manual screeningOrdered By: Tobi Zapata on 05-28-2023 Thin prep Papanicolaou smear with manual screening 3.3 g/dL 3.2-5.0 [facility] Thin prep Papanicolaou smear with manual screening 13 U/L 15-37 [facility] Thin prep Papanicolaou smear with manual screening 5 5-15 [facility] No Panel InformationOrdered By: Jennifer Galdamez on 05-12-2023 523.9 pg/mL 0-100 [facility] Absolute lymphocyte countOrd ered By: Donna Will on 05-07-2023 Lymphocytes Auto (Unsp spec) [#/Vol] 0.96 10*3/uL 0.83-4.51 [facility] Automated lymphocyte count a s percentage of total leukocytesOrdered By: Donna Will on 05-07-2023 Lymphocytes/100 WBC Auto (Unsp spec) 10.6 % 19-41 [facility] Basophil percentageOrdered B y: Donna Will on 05-07-2023 Basophil percentage 7.4 g/dL 13.0-16.5 [facility] Basophil percentage 198 mg/dL 74-106 [facility] Basophil percentage 142 mmol/L 136-145 [facility] Basophil percentage 4.3 mmol/L 3.5-5.1 [facility] Basophil percentage 107 mmol/L 98-107 [facility] Basophils (Bld) [#/Vol] 9.1 10*3/uL 4.4-11.0 [facility] Basophils (Bld) [#/Vol] 7.0 10*3/uL 2.0-7.7 [facility] Basophils/100 WBC (Bld) 76.9 % 47-70 [facility] Basophils/100 WBC (Bld) 8.5 % 0-10 [facility] Basophils/100 WBC (Bld) 2.3 % 0-5 [facility] Basophils/100 WBC (Bld) 0.3 % 0-1 [facility] Determination of erythrocyte mean corpuscular volume (MCV)Ordered By: Donna Will on 05-07-2023 MCV (RBC) [Entitic vol] 96.6 fL 80-94 [facility] Erythrocyte distribution wid th ratioOrdered By: Donna Will on 05-07-2023 Erythrocyte distribution width (RBC) [Ratio] 17.1 % 11.6-14.6 [facility] Erythrocyte distribution wid th standard deviationOrdered By: Donna Will on 05-07-2023 Erythrocyte distribution width (RBC) [Entitic vol] 60.3 fL 35.1-43.9 [facility] Hematocrit Auto (Bld) [Volum e fraction]Ordered By: Donna Will on 05-07-2023 Hematocrit (Bld) [Volume fraction] 25.2 % 40-54 [facility] Immature granulocytes/100 WB C Auto (Bld)Ordered By: Donna Will on 05-07-2023 Immature granulocytes/100 WBC (Bld) 1.400 % 0.0-0.9 [facility] No Panel InformationOrdered By: Donna Will on 05-07-2023 28.4 pg 27.0-32.0 [facility] 29.4 g/dL 32-36 [facility] 301 K/mm3 150-450 [facility] 10.9 fl 6.2-12.0 [facility] 0 % 0-5 [facility] 41 mL/min >60 [facility] 50 mL/min >60 [facility] 23.6 RATIO 10-20 [facility] 29.0 mmol/L 21.0-32.0 [facility] RBC Auto (Bld) [#/Vol]Ordere d By: Donna Will on 05-07-2023 RBC (Bld) [#/Vol] 2.61 10*6/uL 4.6-6.2 [facility] Serum or plasma calcium yocasta urement (mass/volume)Ordered By: Donna Will on 05-07-2023 Calcium [Mass/Vol] 8.9 mg/dL 8.5-10.1 [facility] Serum or plasma creatinine m easurement (mass/volume)Ordered By: Donna Will on 05-07-2023 Creatinine [Mass/Vol] 1.74 mg/dL 0.70-1.30 [facility] Serum or plasma urea nitroge n measurement (mass/volume)Ordered By: Donna Will on 05-07-2023 Urea nitrogen [Mass/Vol] 41 mg/dL 7-18 [facility] Thin prep Papanicolaou smear with manual screeningOrdered By: Donna Will on 05-07-2023 Thin prep Papanicolaou smear with manual screening 6 5-15 [facility] Absolute lymphocyte countOrd ered By: Tobi Zapata on 04-25-2023 Lymphocytes Auto (Unsp spec) [#/Vol] 1.48 10*3/uL 0.83-4.51 [facility] Automated lymphocyte count a s percentage of total leukocytesOrdered By: Tobi Zapata on 04-25-2023 Lymphocytes/100 WBC Auto (Unsp spec) 21.7 % 19-41 [facility] Basophil percentageOrdered B y: Tobi Zapata on 04-25-2023 Basophil percentage 7.6 g/dL 13.0-16.5 [facility] Basophil percentage 192 mg/dL 74-106 [facility] Basophil percentage 6.0 g/dL 6.4-8.2 [facility] Basophil percentage 0.30 mg/dL 0.20-1.00 [facility] Basophil percentage 143 mmol/L 136-145 [facility] Basophil percentage 4.1 mmol/L 3.5-5.1 [facility] Basophil percentage 111 mmol/L 98-107 [facility] Basophil percentage 163 U/L 87-241 [facility] Basophils (Bld) [#/Vol] 6.8 10*3/uL 4.4-11.0 [facility] Basophils (Bld) [#/Vol] 4.0 10*3/uL 2.0-7.7 [facility] Basophils/100 WBC (Bld) 59.2 % 47-70 [facility] Basophils/100 WBC (Bld) 11.0 % 0-10 [facility] Basophils/100 WBC (Bld) 6.4 % 0-5 [facility] Basophils/100 WBC (Bld) 0.7 % 0-1 [facility] Determination of erythrocyte mean corpuscular volume (MCV)Ordered By: Tobi Zapata on 04-25-2023 MCV (RBC) [Entitic vol] 94.8 fL 80-94 [facility] Erythrocyte distribution wid th ratioOrdered By: Tobi Zapata on 04-25-2023 Erythrocyte distribution width (RBC) [Ratio] 17.4 % 11.6-14.6 [facility] Erythrocyte distribution wid th standard deviationOrdered By: Tobi Zapata on 04-25-2023 Erythrocyte distribution width (RBC) [Entitic vol] 60.3 fL 35.1-43.9 [facility] Hematocrit Auto (Bld) [Volum e fraction]Ordered By: Tobi Zapata on 04-25-2023 Hematocrit (Bld) [Volume fraction] 25.5 % 40-54 [facility] Immature granulocytes/100 WB C Auto (Bld)Ordered By: Tobi Zapata on 04-25-2023 Immature granulocytes/100 WBC (Bld) 1.000 % 0.0-0.9 [facility] Iron measurement (mass/mass) Ordered By: oTbi Zapata on 04-25-2023 Iron (Unsp spec) [Mass/Mass] 28 ug/dL 65-175 [facility] No Panel InformationOrdered By: Tobi Zapata on 04-25-2023 28.3 pg 27.0-32.0 [facility] 29.8 g/dL 32-36 [facility] 269 K/mm3 150-450 [facility] 11.1 fl 6.2-12.0 [facility] 0 % 0-5 [facility] 53 mL/min >60 [facility] 64 mL/min >60 [facility] 19.3 RATIO 10-20 [facility] 3.3 g/dL 2.2-4.2 [facility] 0.8 RATIO 0.9-2.4 [facility] 96 U/L 45-117 [facility] 13 U/L 16-61 [facility] 31.0 mmol/L 21.0-32.0 [facility] 212 ug/dL 250-450 [facility] 57 ng/mL 26-388 [facility] RBC Auto (Bld) [#/Vol]Ordere d By: Tobi Zapata on 04-25-2023 RBC (Bld) [#/Vol] 2.69 10*6/uL 4.6-6.2 [facility] Serum or plasma calcium yocasta urement (mass/volume)Ordered By: Tobi Zapata on 04-25-2023 Calcium [Mass/Vol] 8.6 mg/dL 8.5-10.1 [facility] Serum or plasma creatinine m easurement (mass/volume)Ordered By: Tobi Zapata on 04-25-2023 Creatinine [Mass/Vol] 1.40 mg/dL 0.70-1.30 [facility] Serum or plasma iron saturat ion measurement (mass fraction)Ordered By: Tobi Zapata on 04-25-2023 Iron saturation [Mass fraction] 13.2 % 15.0-55.0 [facility] Serum or plasma urea nitroge n measurement (mass/volume)Ordered By: Tobi Zapata on 04-25-2023 Urea nitrogen [Mass/Vol] 27 mg/dL 7-18 [facility] Thin prep Papanicolaou smear with manual screeningOrdered By: Tobi Zapata on 04-25-2023 Thin prep Papanicolaou smear with manual screening 2.7 g/dL 3.2-5.0 [facility] Thin prep Papanicolaou smear with manual screening 6 U/L 15-37 [facility] Thin prep Papanicolaou smear with manual screening 1 5-15 [facility] Absolute lymphocyte countOrd ered By: Donna Will on 04-17-2023 Lymphocytes Auto (Unsp spec) [#/Vol] 2.00 10*3/uL 0.83-4.51 [facility] Automated lymphocyte count a s percentage of total leukocytesOrdered By: Donna Will on 04-17-2023 Lymphocytes/100 WBC Auto (Unsp spec) 25.3 % 19-41 [facility] Basophil percentageOrdered B y: Donna Will on 04-17-2023 Basophil percentage 7.9 g/dL 13.0-16.5 [facility] Basophils (Bld) [#/Vol] 7.9 10*3/uL 4.4-11.0 [facility] Basophils (Bld) [#/Vol] 4.6 10*3/uL 2.0-7.7 [facility] Basophils/100 WBC (Bld) 58.4 % 47-70 [facility] Basophils/100 WBC (Bld) 9.4 % 0-10 [facility] Basophils/100 WBC (Bld) 4.6 % 0-5 [facility] Basophils/100 WBC (Bld) 0.8 % 0-1 [facility] Determination of erythrocyte mean corpuscular volume (MCV)Ordered By: Donna Will on 04-17-2023 MCV (RBC) [Entitic vol] 96.8 fL 80-94 [facility] Erythrocyte distribution wid th ratioOrdered By: Donna Will on 04-17-2023 Erythrocyte distribution width (RBC) [Ratio] 17.4 % 11.6-14.6 [facility] Erythrocyte distribution wid th standard deviationOrdered By: Donna Will on 04-17-2023 Erythrocyte distribution width (RBC) [Entitic vol] 61.5 fL 35.1-43.9 [facility] Hematocrit Auto (Bld) [Volum e fraction]Ordered By: Donna Will on 04-17-2023 Hematocrit (Bld) [Volume fraction] 26.9 % 40-54 [facility] Immature granulocytes/100 WB C Auto (Bld)Ordered By: Donna Will on 04-17-2023 Immature granulocytes/100 WBC (Bld) 1.500 % 0.0-0.9 [facility] Iron measurement (mass/mass) Ordered By: Donna Will on 04-17-2023 Iron (Unsp spec) [Mass/Mass] 49 ug/dL 65-175 [facility] No Panel InformationOrdered By: Donna Will on 04-17-2023 28.4 pg 27.0-32.0 [facility] 29.4 g/dL 32-36 [facility] 338 K/mm3 150-450 [facility] 10.9 fl 6.2-12.0 [facility] 0 % 0-5 [facility] 238 ug/dL 250-450 [facility] RBC Auto (Bld) [#/Vol]Ordere d By: Donna Will on 04-17-2023 RBC (Bld) [#/Vol] 2.78 10*6/uL 4.6-6.2 [facility] Serum or plasma iron saturat ion measurement (mass fraction)Ordered By: Donna Will on 04-17-2023 Iron saturation [Mass fraction] 20.6 % 15.0-55.0 [facility] Basophil percentageOrdered B y: Donna Will on 04-03-2023 Basophil percentage 146 mg/dL 74-106 [facility] Basophil percentage 141 mmol/L 136-145 [facility] Basophil percentage 4.2 mmol/L 3.5-5.1 [facility] Basophil percentage 108 mmol/L 98-107 [facility] No Panel InformationOrdered By: Donna Will on 04-03-2023 43 mL/min >60 [facility] 52 mL/min >60 [facility] 12.7 RATIO 10-20 [facility] 1.6 mg/dL 1.6-2.6 [facility] 30.0 mmol/L 21.0-32.0 [facility] Serum or plasma calcium yocasta urement (mass/volume)Ordered By: Donna Will on 04-03-2023 Calcium [Mass/Vol] 8.0 mg/dL 8.5-10.1 [facility] Serum or plasma creatinine m easurement (mass/volume)Ordered By: Donna Will on 04-03-2023 Creatinine [Mass/Vol] 1.66 mg/dL 0.70-1.30 [facility] Serum or plasma urea nitroge n measurement (mass/volume)Ordered By: Donna Will on 04-03-2023 Urea nitrogen [Mass/Vol] 21 mg/dL 7-18 [facility] Thin prep Papanicolaou smear with manual screeningOrdered By: Donna Will on 04-03-2023 Thin prep Papanicolaou smear with manual screening 3 5-15 [facility] 36on 03-21-2023 36 S: Pt's calling [facility] Nurse Advice Line regarding prescription problem. B: Pt was discharged today from [facility]. A: states [facility] insurance will not cover pt's insulin that was prescribed at discharge. wants to know why, and also what he can take instead. R: Advised that she has reached the [facility] Nurse Advice Line, and to please call the other number on her card regarding prescriptions. Caller ended call. Reason for Disposition [1] Follow-up call to recent contact AND [2] information only call, no triage required Protocols used: Information Only Call - [id number] Thin prep Papanicolaou smear with manual screeningOrdered By: Clive Sharp on 03-21-2023 Thin prep Papanicolaou smear with manual screening 171 mg/dL 74-106 [facility] Absolute lymphocyte countOrd ered By: Anthony Singleton on 03-19-2023 Lymphocytes Auto (Unsp spec) [#/Vol] 1.19 10*3/uL 0.83-4.51 [facility] Automated lymphocyte count a s percentage of total leukocytesOrdered By: Anthony Singleton on 03-19-2023 Lymphocytes/100 WBC Auto (Unsp spec) 11.9 % 19-41 [facility] Basophil percentageOrdered B y: Anthony Singleton on 03-19-2023 Basophil percentage 8.6 g/dL 13.0-16.5 [facility] Basophil percentage 120 mg/dL 74-106 [facility] Basophil percentage 142 mmol/L 136-145 [facility] Basophil percentage 4.1 mmol/L 3.5-5.1 [facility] Basophil percentage 107 mmol/L 98-107 [facility] Basophils (Bld) [#/Vol] 10.0 10*3/uL 4.4-11.0 [facility] Basophils (Bld) [#/Vol] 7.6 10*3/uL 2.0-7.7 [facility] Basophils/100 WBC (Bld) 76.0 % 47-70 [facility] Basophils/100 WBC (Bld) 7.1 % 0-10 [facility] Basophils/100 WBC (Bld) 2.8 % 0-5 [facility] Basophils/100 WBC (Bld) 0.3 % 0-1 [facility] Determination of erythrocyte mean corpuscular volume (MCV)Ordered By: Anthony Singleton on 03-19-2023 MCV (RBC) [Entitic vol] 99.0 fL 80-94 [facility] Erythrocyte distribution wid th ratioOrdered By: Anthony Singleton on 03-19-2023 Erythrocyte distribution width (RBC) [Ratio] 19.3 % 11.6-14.6 [facility] Erythrocyte distribution wid th standard deviationOrdered By: Anthony Singleton on 03-19-2023 Erythrocyte distribution width (RBC) [Entitic vol] 62.5 fL 35.1-43.9 [facility] Hematocrit Auto (Bld) [Volum e fraction]Ordered By: Anthony Singleton on 03-19-2023 Hematocrit (Bld) [Volume fraction] 29.0 % 40-54 [facility] Immature granulocytes/100 WB C Auto (Bld)Ordered By: Anthony Singleton on 03-19-2023 Immature granulocytes/100 WBC (Bld) 1.900 % 0.0-0.9 [facility] No Panel InformationOrdered By: Anthony Singleton on 03-19-2023 29.4 pg 27.0-32.0 [facility] 29.7 g/dL 32-36 [facility] 166 K/mm3 150-450 [facility] 0.6 % 0-5 [facility] 28 mL/min >60 [facility] 34 mL/min >60 [facility] 32.04 ml/min [facility] 30.5 RATIO 10-20 [facility] 32.0 mmol/L 21.0-32.0 [facility] Platelet mean volume Edmundo-Ec ker (Bld) [Entitic vol]Ordered By: Anthony Singleton on 03-19-2023 Platelet mean volume (Bld) [Entitic vol] 11.4 fL 6.2-12.0 [facility] RBC Auto (Bld) [#/Vol]Ordere d By: Anthony Singleton on 03-19-2023 RBC (Bld) [#/Vol] 2.93 10*6/uL 4.6-6.2 [facility] Serum or plasma calcium yocasta urement (mass/volume)Ordered By: Anthony Singleton on 03-19-2023 Calcium [Mass/Vol] 7.7 mg/dL 8.5-10.1 [facility] Serum or plasma creatinine m easurement (mass/volume)Ordered By: Anthony Singleton on 03-19-2023 Creatinine [Mass/Vol] 2.43 mg/dL 0.70-1.30 [facility] Serum or plasma urea nitroge n measurement (mass/volume)Ordered By: Anthony Singleton on 03-19-2023 Urea nitrogen [Mass/Vol] 74 mg/dL 7-18 [facility] Thin prep Papanicolaou smear with manual screeningOrdered By: Anthony Singleton on 03-19-2023 Thin prep Papanicolaou smear with manual screening 3 5-15 [facility] Anaerobic cultureOrdered By: Nadira Ricks on 03-18-2023 Bacteria identified Anaer cx Nom (Unsp spec) No growth in 5 days. [facility] Bacteria identified Anaer cx Nom (Unsp spec) No growth in 5 days. [facility] Body fluid appearanceOrdered By: Nadira Ricks on 03-18-2023 Appearance (Body fld) CLEAR [facility] Body fluid color determinati onOrdered By: Nadira Ricks on 03-18-2023 Color (Body fld) YELLOW [facility] Body fluid lactate dehydroge nase measurement (enzymatic activity/volume) by pyruvateOrdered By: Nadira Ricks on 03-18-2023 LDH Pyruvate to lactate reaction (Body fld) [Catalytic activity/Vol] 61 Units/L Not Establ. [facility] Body fluid leukocytes count (number/volume)Ordered By: Nadira Ricks on 03-18-2023 WBC (Body fld) [#/Vol] 0.218 10*3/uL [facility] Body fluid lymphocytes/100 l eukocytesOrdered By: Nadira Ricks on 03-18-2023 Lymphocytes/100 WBC (Body fld) 19 % [facility] Body fluid mesothelial cell percentageOrdered By: Nadira Ricks on 03-18-2023 Mesothelial cells/100 WBC (Body fld) 0 % [facility] Body fluid mononuclear cell percentageOrdered By: Nadira Ricks on 03-18-2023 Mononuclear cells/100 WBC (Body fld) 65.6 % [facility] Body fluid other cell count as percentage of leukocytesOrdered By: Nadira Ricks on 03-18-2023 Other cells/100 WBC (Body fld) 1 % [facility] Body fluid polymorphonuclear leukocyte countOrdered By: Nadira Ricks on 03-18-2023 Polymorphonuclear cells (Body fld) [#/Vol] 0.075 10^3/uL [facility] Body fluid protein measureme nt (mass/volume)Ordered By: Nadira Ricks on 03-18-2023 Protein (Body fld) [Mass/Vol] 1.1 g/dL Not Establ. [facility] Body fluid segmented neutrop hils count (number/volume)Ordered By: Nadira Ricks on 03-18-2023 Segmented neutrophils (Body fld) [#/Vol] 60 % [facility] Body fluid total cell countO rdered By: Nadira Ricks on 03-18-2023 Cells Counted Total (Body fld) [#] 0.257 10^3/ul [facility] Cytology report of Body flui d Cyto stainOrdered By: Nadira Ricks on 03-18-2023 Cytology report Cyto stain Doc (Body fld) SEE PATHOLOGY REPORT [facility] Gram stain for investigation of transfusion reactionOrdered By: Nadira Ricks on 03-18-2023 Microscopic observation Gram stain Nom (Unsp spec) [facility] Microscopic observation Gram stain Nom (Unsp spec) [facility] No Panel InformationOrdered By: Nadira Ricks on 03-18-2023 35 /mm3 [facility] 34.4 % [facility] 0.143 10^3/uL [facility] SEE COMMENT [facility] 196 mg/dL 40-70 [facility] Culture exhibits no growth. [facility] Culture exhibits no growth. [facility] Pathologist interpretation o f Body fluid testsOrdered By: Nadira Ricks on 03-18-2023 Pathologist interpretation (Body fld) [Interp] Reviewed [facility] Specimen source identificati on of body fluidOrdered By: Nadira Ricks on 03-18-2023 Specimen source Nom (Body fld) THORACENTESIS [facility] Thin prep Papanicolaou smear with manual screeningOrdered By: Nadira Ricks on 03-18-2023 Thin prep Papanicolaou smear with manual screening 20 % [facility] Basophil percentageOrdered B y: Nadira Ricks on 03-17-2023 Basophil percentage 5.3 g/dL 6.4-8.2 [facility] Basophil percentage 4.1 mg/dL 2.5-4.9 [facility] Basophil percentage 0.60 mg/dL 0.20-1.00 [facility] Basophil percentage 232 U/L 87-241 [facility] No Panel InformationOrdered By: Anthony Singleton on 03-17-2023 Negative Negative [facility] 650.8 pg/mL 0-100 [facility] No Panel InformationOrdered By: Nadira Ricks on 03-17-2023 2.4 g/dL 2.2-4.2 [facility] 1.2 RATIO 0.9-2.4 [facility] 61 U/L 45-117 [facility] 18 U/L 16-61 [facility] 2.1 mg/dL 1.6-2.6 [facility] 984 pg/mL 3.0-78.0 [facility] Serum procalcitonin measurem entOrdered By: Anthony Singleton on 03-17-2023 Procalcitonin [Mass/Vol] 0.28 ng/mL 0.00-0.09 [facility] Thin prep Papanicolaou smear with manual screeningOrdered By: Nadira Ricks on 03-17-2023 Thin prep Papanicolaou smear with manual screening 2.9 g/dL 3.2-5.0 [facility] Thin prep Papanicolaou smear with manual screening 11 U/L 15-37 [facility] Absolute lymphocyte countOrd ered By: Eva Marie on 03-16-2023 Lymphocytes Auto (Unsp spec) [#/Vol] 1.54 10*3/uL 0.83-4.51 [facility] Activated partial thrombopla stin time (aPTT) in platelet poor plasma by coagulation aOrdered By: Eva Marie on 03-16-2023 aPTT Coag (PPP) [Time] 24.5 s 24.1-36.2 [facility] Assessment of wrist artery p atency prior to arterial punctureOrdered By: Nadira Ricks on 03-16-2023 Arterial patency Wrist artery --pre arterial puncture Positive [facility] Automated lymphocyte count a s percentage of total leukocytesOrdered By: Eva Marie on 03-16-2023 Lymphocytes/100 WBC Auto (Unsp spec) 7.3 % 19-41 [facility] Base excessOrdered By: Isak Ricks on 03-16-2023 Base excess Calc (BldV) [Moles/Vol] 5 mmol/L -2-2 [facility] Base excessOrdered By: Rigo Marie on 03-16-2023 Base excess Calc (BldV) [Moles/Vol] 5 mmol/L -1.0-3.5 [facility] Basophil percentageOrdered B y: Nadira Ricks on 03-16-2023 Basophil percentage 32 mmol/L [facility] Basophils/100 WBC (Bld) 97 % 95-99 [facility] Basophil percentageOrdered B y: Eva Marie on 03-16-2023 Basophil percentage 1.8 mmol/L 0.4-2.0 [facility] Basophil percentage 50-100 SEEN /hpf 0-5 [facility] Basophil percentage 5.0 g/dL 13.0-16.5 [facility] Basophil percentage 817 mg/dL 74-106 [facility] Basophil percentage 5.2 g/dL 6.4-8.2 [facility] Basophil percentage 0.60 mg/dL 0.20-1.00 [facility] Basophil percentage 134 mmol/L 136-145 [facility] Basophil percentage 4.7 mmol/L 3.5-5.1 [facility] Basophil percentage 94 mmol/L 98-107 [facility] Basophil percentage 4.5 mmol/L 0.4-2.0 [facility] Basophils (Bld) [#/Vol] 21.0 10*3/uL 4.4-11.0 [facility] Basophils (Bld) [#/Vol] 17.3 10*3/uL 2.0-7.7 [facility] Basophils/100 WBC (Bld) 82.4 % 47-70 [facility] Basophils/100 WBC (Bld) 5.5 % 0-10 [facility] Basophils/100 WBC (Bld) 0.5 % 0-5 [facility] Basophils/100 WBC (Bld) 0.2 % 0-1 [facility] Bilirubin Test strip Ql (U)O rdered By: Eva Marie on 03-16-2023 Bilirubin Ql (U) Negative Negative [facility] Blood manual differential co mment interpretation (narrative result)Ordered By: Eva Marie on 03-16-2023 Manual differential comment Sohan (Bld) [Interp] SCANNED [facility] CO2 (BldV) [Moles/Vol]Ordere d By: Eva Marie on 03-16-2023 CO2 [Moles/Vol] 31 mmol/L 23-33 [facility] Culture, urineOrdered By: Henrique Marie on 03-16-2023 Culture, urine Positive [facility] Determination of erythrocyte mean corpuscular volume (MCV)Ordered By: Eva Marie on 03-16-2023 MCV (RBC) [Entitic vol] 100.0 fL 80-94 [facility] Erythrocyte distribution wid th ratioOrdered By: Eva Marie on 03-16-2023 Erythrocyte distribution width (RBC) [Ratio] 20.1 % 11.6-14.6 [facility] Erythrocyte distribution wid th standard deviationOrdered By: Eva Marie on 03-16-2023 Erythrocyte distribution width (RBC) [Entitic vol] 63.7 fL 35.1-43.9 [facility] Hematocrit Auto (Bld) [Volum e fraction]Ordered By: Eva Marie on 03-16-2023 Hematocrit (Bld) [Volume fraction] 16.6 % 40-54 [facility] Hypochromatic red blood cell detectionOrdered By: Eva Marie on 03-16-2023 Hypochromia Ql (Bld) 1+ [facility] Immature granulocytes/100 WB C Auto (Bld)Ordered By: Eva Marie on 03-16-2023 Immature granulocytes/100 WBC (Bld) 4.100 % 0.0-0.9 [facility] International normalized rat io (INR) calculationOrdered By: Eva Marie on 03-16-2023 INR Coag (PPP) [Relative time] 1.5 {INR} [facility] Ketones Test strip Ql (U)Ord ered By: Eva Marie on 03-16-2023 Ketones Ql (U) Negative Negative [facility] Laboratory - Chemistry and C hemistry - challengeOrdered By: Nadira Ricks on 03-16-2023 CO2 (Dial fld) [Partial pressure] 48.9 mmHg 35-45 [facility] Macrocytes detectionOrdered By: Eva Marie on 03-16-2023 Macrocytes Ql (Bld) 1+ [facility] Measurement, pHOrdered By: Angela Ricks on 03-16-2023 pH (Unsp spec) 7.40 [pH] 7.35-7.45 [facility] Mucus LM Ql (Urine sed)Order ed By: Eva Marie on 01-21-2024 Mucus Ql (Urine sed) 0 SEEN /hpf [facility] Nitrite Test strip Ql (U)Ord ered By: Eva Marie on 03-16-2023 Nitrite Ql (U) Negative Negative [facility] No Panel InformationOrdered By: Nadira Ricks on 03-16-2023 ART [facility] R Radial [facility] Not entered [facility] Cannula [facility] 4.0 [facility] 30.2 mmol/L 22-26 [facility] No Panel InformationOrdered By: Eva Marie on 03-16-2023 No growth in 5 days. [facility] 0 SEEN /hpf 0-5 [facility] LEONEL [facility] Not entered [facility] Cannula [facility] 4.0 [facility] 30.1 pg 27.0-32.0 [facility] 30.1 g/dL 32-36 [facility] 256 K/mm3 150-450 [facility] 2.1 % 0-5 [facility] 2+ [facility] 18.0 SECONDS 11.7-14.9 [facility] 25 mL/min >60 [facility] 31 mL/min >60 [facility] 29.26 ml/min [facility] 39.8 RATIO 10-20 [facility] 2.4 g/dL 2.2-4.2 [facility] 1.2 RATIO 0.9-2.4 [facility] 37 U/L 39-308 [facility] 435 pg/mL 3.0-78.0 [facility] 61 U/L 45-117 [facility] 19 U/L 16-61 [facility] 30.0 mmol/L 21.0-32.0 [facility] PCO2 venousOrdered By: Rigo Marie on 03-16-2023 CO2 (BldV) [Partial pressure] 49.5 mm[Hg] 41-51 [facility] PO2 venousOrdered By: Eva Marie on 03-16-2023 Oxygen (BldV) [Partial pressure] 35 mm[Hg] 25-40 [facility] Platelet mean volume Edmundo-Ec ker (Bld) [Entitic vol]Ordered By: Eva Marie on 03-16-2023 Platelet mean volume (Bld) [Entitic vol] 12.3 fL 6.2-12.0 [facility] Protein Test strip Ql (U)Ord ered By: Eva Marie on 03-16-2023 Protein Ql (U) 30 mg/dl Negative [facility] RBC Auto (Bld) [#/Vol]Ordere d By: Eva Marie on 03-16-2023 RBC (Bld) [#/Vol] 1.66 10*6/uL 4.6-6.2 [facility] Respiratory measures and Leonel tilator managementOrdered By: Nadira Ricks on 03-16-2023 Oxygen [Partial pressure] in Capillary blood by Transcutaneous O2 monitor 97 mmHG 75-100 [facility] Review by pathologistOrdered By: Eva Marie on 03-16-2023 Pathologist review Sohan (Unsp spec) [Interp] June [facility] Pathologist review Sohan (Unsp spec) [Interp] Reviewed [facility] Serum or plasma acetone yocasta urement (mass/volume)Ordered By: Jordan Driscoll on 03-16-2023 Acetone [Mass/Vol] SMALL NEG [facility] Serum or plasma acetone yocasta urement (mass/volume)Ordered By: Eva Marie on 03-16-2023 Acetone [Mass/Vol] Negative NEG [facility] Serum or plasma calcium yocasta urement (mass/volume)Ordered By: Eva Marie on 03-16-2023 Calcium [Mass/Vol] 8.7 mg/dL 8.5-10.1 [facility] Serum or plasma creatinine m easurement (mass/volume)Ordered By: Eva Marie on 03-16-2023 Creatinine [Mass/Vol] 2.64 mg/dL 0.70-1.30 [facility] Serum or plasma urea nitroge n measurement (mass/volume)Ordered By: Eva Marie on 03-16-2023 Urea nitrogen [Mass/Vol] 105 mg/dL 7-18 [facility] Squamous epithelial cells de tection in urine sediment by light microscopyOrdered By: Eva Marie on 03-16-2023 Epithelial cells.squamous LM Ql (Urine sed) 0-5 SEEN /hpf 0-5 [facility] Stool gastrointestinal hemog lobin detection by immunologic methodOrdered By: Eva Marie on 03-16-2023 Stool gastrointestinal hemoglobin detection by immunologic method Positive [facility] Thin prep Papanicolaou smear with manual screeningOrdered By: Eva Marie on 03-16-2023 Thin prep Papanicolaou smear with manual screening 1+ [facility] Thin prep Papanicolaou smear with manual screening 2.8 g/dL 3.2-5.0 [facility] Thin prep Papanicolaou smear with manual screening 7 U/L 15-37 [facility] Thin prep Papanicolaou smear with manual screening 10 5-15 [facility] Thin prep Papanicolaou smear with manual screening > 500 mg/dL 74-106 [facility] Urine blood detectionOrdered By: Eva Marie on 03-16-2023 RBC Ql (U) 25 /ul Negative [facility] Urine clarityOrdered By: Jailene Maire on 03-16-2023 Clarity (U) Clear Clear [facility] Urine color determinationOrd ered By: Eva Marie on 03-16-2023 Color (U) Yellow Yellow [facility] Urine glucose detectionOrder ed By: Eva Marie on 03-16-2023 Glucose Ql (U) 1000 mg/dl Normal [facility] Urine leukocyte esterase det ection by dipstickOrdered By: Eva Marie on 03-16-2023 Leukocyte esterase Test strip Ql (U) 500 /ul Negative [facility] Urine pHOrdered By: Eva gordon on 03-16-2023 pH (U) 6.5 [pH] 5.0 - 8.0 [facility] Urine sediment bacteria coun t by microscopy (number/high power field)Ordered By: Eva Marie on 03-16-2023 Bacteria LM.HPF (Urine sed) [#/Area] 0 /[HPF] None Seen [facility] Urine specific gravity measu rementOrdered By: Eva Marie on 03-16-2023 Specific gravity (U) [Rel density] 1.010 1.002-1.030 [facility] Urine urobilinogen measureme ntOrdered By: Eva Marie on 03-16-2023 Urobilinogen Ql (U) Normal mg/dl Normal [facility] Venous blood bicarbonate vasquez surementOrdered By: Eva Marie on 03-16-2023 HCO3 (BldCoV) [Moles/Vol] 30 mmol/L 22-26 [facility] Venous blood oxygen saturati on (pure mass fraction)Ordered By: Eva Marie on 03-16-2023 SaO2% (BldV) [Pure mass fraction] 65 % 50-70 [facility] Venous blood pH measurementO rdered By: Eva Marie on 03-16-2023 pH (BldV) 7.39 [pH] 7.32-7.42 [facility] Absolute lymphocyte countOrd ered By: Jordan Ortiz on 03-06-2023 Lymphocytes Auto (Unsp spec) [#/Vol] 0.90 10*3/uL 0.83-4.51 [facility] Basophil percentageOrdered B y: Jordan Ortiz on 03-06-2023 Basophil percentage 199 mg/dL 74-106 [facility] Basophil percentage 2.6 mg/dL 2.5-4.9 [facility] Basophil percentage 142 mmol/L 136-145 [facility] Basophil percentage 4.1 mmol/L 3.5-5.1 [facility] Basophil percentage 103 mmol/L 98-107 [facility] Basophils (Bld) [#/Vol] 10.9 10*3/uL 4.4-11.0 [facility] Basophils (Bld) [#/Vol] 8.7 10*3/uL 2.0-7.7 [facility] Basophils/100 WBC (Bld) 79.8 % 47-70 [facility] Basophils/100 WBC (Bld) 0.3 % 0-5 [facility] Basophils/100 WBC (Bld) 0.1 % 0-1 [facility] Blood erythrocytes count (nu mber/volume)Ordered By: Jordan Ortiz on 03-06-2023 RBC (Bld) [#/Vol] 3.37 10*6/uL 4.6-6.2 [facility] Blood hemoglobin measurement (mass/volume)Ordered By: Jordan Ortiz on 03-06-2023 Hemoglobin (Bld) [Mass/Vol] 10.0 g/dL 13.0-16.5 [facility] Blood lymphocytes/100 leukoc ytesOrdered By: Jordan Ortiz on 03-06-2023 Lymphocytes/100 WBC (Bld) 8.3 % 19-41 [facility] Blood monocytes/100 leukocyt esOrdered By: Jordan Ortiz on 03-06-2023 Monocytes/100 WBC (Bld) 10.8 % 0-10 [facility] Blood platelet mean volumeOr dered By: Jordan Ortiz on 03-06-2023 Platelet mean volume (Bld) [Entitic vol] 11.1 fL 6.2-12.0 [facility] Determination of erythrocyte mean corpuscular volume (MCV)Ordered By: Jordan Ortiz on 03-06-2023 MCV (RBC) [Entitic vol] 92.9 fL 80-94 [facility] Glucose Glucometer (BldC) [M ass/Vol]Ordered By: Jordan Ortiz on 03-06-2023 Glucose [Mass/Vol] 325 mg/dL 74-106 [facility] Hematocrit Auto (Bld) [Volum e fraction]Ordered By: oJrdan Ortiz on 03-06-2023 Hematocrit (Bld) [Volume fraction] 31.3 % 40-54 [facility] MCHC Auto (RBC) [Mass/Vol]Or dered By: Jordan Ortiz on 03-06-2023 MCHC (RBC) [Mass/Vol] 31.9 g/dL 32-36 [facility] No Panel InformationOrdered By: Jordan Ortiz on 03-06-2023 29.7 pg 27.0-32.0 [facility] 18.0 % 11.6-14.6 [facility] 62.2 fl 35.1-43.9 [facility] 0.700 % 0.0-0.9 [facility] 0 % 0-5 [facility] 48 mL/min >60 [facility] 58 mL/min >60 [facility] 54.00 ml/min [facility] 35.9 RATIO 10-20 [facility] 34.0 mmol/L 21.0-32.0 [facility] Platelets bldOrdered By: Tino Ortiz on 03-06-2023 Platelets (Bld) [#/Vol] 244 10*3/uL 150-450 [facility] Serum or plasma calcium yocasta urement (mass/volume)Ordered By: Jordan Ortiz on 03-06-2023 Calcium [Mass/Vol] 8.9 mg/dL 8.5-10.1 [facility] Serum or plasma creatinine m easurement (mass/volume)Ordered By: Jordan Ortiz on 03-06-2023 Creatinine [Mass/Vol] 1.53 mg/dL 0.70-1.30 [facility] Serum or plasma urea nitroge n measurement (mass/volume)Ordered By: Jordan Ortiz on 03-06-2023 Urea nitrogen [Mass/Vol] 55 mg/dL 7-18 [facility] Thin prep Papanicolaou smear with manual screeningOrdered By: Jordan Ortiz on 03-06-2023 Thin prep Papanicolaou smear with manual screening 5 5-15 [facility] Basophil percentageOrdered B y: Jordan Ortiz on 03-05-2023 Basophil percentage 6.0 g/dL 6.4-8.2 [facility] Basophil percentage 0.50 mg/dL 0.20-1.00 [facility] No Panel InformationOrdered By: Jordan Ortiz on 03-05-2023 2.9 g/dL 2.2-4.2 [facility] 66 U/L 45-117 [facility] 19 U/L 16-61 [facility] 1.9 mg/dL 1.6-2.6 [facility] Serum or plasma albumin yocasta urement (mass/volume)Ordered By: Jordan Ortiz on 03-05-2023 Albumin [Mass/Vol] 3.1 g/dL 3.2-5.0 [facility] Serum or plasma albumin/glob ulin mass ratioOrdered By: Jordan Ortiz on 03-05-2023 Albumin/Globulin [Mass ratio] 1.1 {ratio} 0.9-2.4 [facility] Thin prep Papanicolaou smear with manual screeningOrdered By: Jordan Ortiz on 03-05-2023 Thin prep Papanicolaou smear with manual screening 9 U/L 15-37 [facility] Blood manual differential co mment interpretation (narrative result)Ordered By: Jordan Ortiz on 03-04-2023 Manual differential comment Sohan (Bld) [Interp] SCANNED [facility] No Panel InformationOrdered By: Jordan Ortiz on 03-03-2023 2+ [facility] 593.7 pg/mL 0-100 [facility] Macrocytes detectionOrdered By: Jordan Ortiz on 03-02-2023 Macrocytes Ql (Bld) 1+ [facility] Thin prep Papanicolaou smear with manual screeningOrdered By: Jordan Ortiz on 03-02-2023 Thin prep Papanicolaou smear with manual screening 1+ [facility] Blood platelet adequacy dete ction by light microscopyOrdered By: Mable Pritchard on 03-01-2023 Platelets LM Ql (Bld) ADEQUATE ADEQ [facility] Hypochromatic red blood cell detectionOrdered By: Mable Pritchard on 03-01-2023 Hypochromia Ql (Bld) 1+ [facility] Lower GI hemoglobin IA Ql (S tl)Ordered By: Mable Pritchard on 03-01-2023 Stool gastrointestinal hemoglobin detection by immunologic method Positive [facility] Stool gastrointestinal hemoglobin detection by immunologic method Positive [facility] No Panel InformationOrdered By: Mable Pritchard on 03-01-2023 551 pg/mL 211-911 [facility] Review by pathologistOrdered By: Mable Pritchard on 03-01-2023 Pathologist review Sohan (Unsp spec) [Interp] Reviewed [facility] Serum or plasma ferritin vasquez surement (mass/volume)Ordered By: Mable Pritchard on 03-01-2023 Ferritin [Mass/Vol] 171 ng/mL 26-388 [facility] Serum or plasma folate measu rement (mass/volume)Ordered By: Mable Pritchard on 03-01-2023 Folate [Mass/Vol] 4.90 ng/mL 3.1-55.4 [facility] Absolute lymphocyte countOrd ered By: Dwain Nowak on 02-28-2023 Lymphocytes Auto (Unsp spec) [#/Vol] 0.91 10*3/uL 0.83-4.51 [facility] Basophil percentageOrdered B y: Dwain Nowak on 02-28-2023 Basophils/100 WBC (Bld) 0.6 % 0-1 [facility] Chloride [Moles/Vol] 112 mmol/L 98-107 [facility] Eosinophils/100 WBC (Bld) 3.9 % 0-5 [facility] Glucose [Mass/Vol] 181 mg/dL 74-106 [facility] Comment on above: Fasting Glucose resu lt greater than or equal to 126 mg/dL suggests DIABETES MELLITUS per A.D.A. criteria. Neutrophils (Bld) [#/Vol] 5.8 10*3/uL 2.0-7.7 [facility] Neutrophils/100 WBC (Bld) 74.3 % 47-70 [facility] Potassium [Moles/Vol] 5.6 mmol/L 3.5-5.1 [facility] Sodium [Moles/Vol] 141 mmol/L 136-145 [facility] WBC (Bld) [#/Vol] 7.8 10*3/uL 4.4-11.0 [facility] Blood erythrocytes count (nu mber/volume)Ordered By: Dwain Nowak on 02-28-2023 RBC (Bld) [#/Vol] 2.33 10*6/uL 4.6-6.2 [facility] Blood hemoglobin measurement (mass/volume)Ordered By: Dwain Nowak on 02-28-2023 Hemoglobin (Bld) [Mass/Vol] 6.7 g/dL 13.0-16.5 [facility] Blood lymphocytes/100 leukoc ytesOrdered By: Dwain Nowak on 02-28-2023 Lymphocytes/100 WBC (Bld) 11.7 % 19-41 [facility] Blood monocytes/100 leukocyt esOrdered By: Dwain Nowak on 02-28-2023 Monocytes/100 WBC (Bld) 8.6 % 0-10 [facility] Blood platelet mean volumeOr dered By: Dwain Nowak on 02-28-2023 Platelet mean volume (Bld) [Entitic vol] 10.7 fL 6.2-12.0 [facility] Determination of erythrocyte mean corpuscular volume (MCV)Ordered By: Dwain Nowak on 02-28-2023 MCV (RBC) [Entitic vol] 100.9 fL 80-94 [facility] Hematocrit Auto (Bld) [Volum e fraction]Ordered By: Dwain Nowak on 02-28-2023 Hematocrit (Bld) [Volume fraction] 23.5 % 40-54 [facility] Hypochromatic red blood cell detectionOrdered By: Dwain Nowak on 02-28-2023 Hypochromia Ql (Bld) 1+ [facility] Iron measurement (mass/mass) Ordered By: Mable Pritchard on 02-28-2023 Iron (Unsp spec) [Mass/Mass] 33 ug/dL 65-175 [facility] Laboratory - Chemistry and C hemistry - challengeOrdered By: Dwain Nowak on 02-28-2023 CO2 [Moles/Vol] 26.0 mmol/L 21.0-32.0 [facility] Urea nitrogen/Creatinine [Mass ratio] 20.0 mg/mg 10-20 [facility] Laboratory - Hematology and Cell countsOrdered By: Dwain Nowak on 02-28-2023 Anisocytosis Ql (Bld) 2+ [facility] Erythrocyte distribution width (RBC) [Entitic vol] 74.5 fL 35.1-43.9 [facility] Erythrocyte distribution width (RBC) [Ratio] 19.9 % 11.6-14.6 [facility] Immature granulocytes/100 WBC (Bld) 0.900 % 0.0-0.9 [facility] Comment on above: IG% - Immature Granu locytes (promyelocytes, myelocytes and metamyelocytes) > 1% indicates that a LEFT SHIFT is Present. MCH (RBC) [Entitic mass] 28.8 pg 27.0-32.0 [facility] Nucleated RBC/100 WBC (Bld) [Ratio] 0.3 % 0-5 [facility] Laboratory - Microbiology an d Antimicrobial susceptibilityOrdered By: Dwain Nowak on 02-28-2023 SARS-CoV-2 (COVID-19) RNA JUSTIN+probe Ql (Unsp spec) [facility] MCHC Auto (RBC) [Mass/Vol]Or dered By: Dwain Nowak on 02-28-2023 MCHC (RBC) [Mass/Vol] 28.5 g/dL 32-36 [facility] No Panel InformationOrdered By: Dwain Nowak on 02-28-2023 Estimated GFR (MDRD) Amer 49 mL/min >60 [facility] Comment on above: GFR Calc Estimated GFR (MDRD) Non-Af Amer 41 mL/min >60 [facility] Comment on above: Non- GFR Calc Troponin I High Sensitivity 18 pg/mL 3.0-78.0 [facility] Comment on above: Please Note: New Nicole t Units and Gender Specific Reference Ranges. For more information see Policy Stat Procedure [place] High Sensitivity Troponin (TNIH) and attachments. 18 pg/mL 3.0-78.0 [facility] No Panel InformationOrdered By: Mable Pritchard on 02-28-2023 236 ug/dL 250-450 [facility] Platelets bldOrdered By: Dean Nowak on 02-28-2023 Platelets (Bld) [#/Vol] 278 10*3/uL 150-450 [facility] Respiratory pathogens detect ion panel by molecular detection methodOrdered By: Mable Pritchard on 02-28-2023 Respiratory pathogens DNA and RNA panel JUSTIN+probe (Resp) [facility] Respiratory pathogens DNA and RNA panel JUSTIN+probe (Resp) [facility] Serum or plasma calcium yocasta urement (mass/volume)Ordered By: Dwain Nowak on 02-28-2023 Calcium [Mass/Vol] 8.5 mg/dL 8.5-10.1 [facility] Serum or plasma creatinine m easurement (mass/volume)Ordered By: Dwain Nowak on 02-28-2023 Creatinine [Mass/Vol] 1.75 mg/dL 0.70-1.30 [facility] Comment on above: The validity of the calculated GFR & GFRAA in patients over 70 years has not been determined. Clinical correlation is essential. Serum or plasma iron saturat ion measurement (mass fraction)Ordered By: Mable Pritchard on 02-28-2023 Iron saturation [Mass fraction] 14.0 % 15.0-55.0 [facility] Serum or plasma urea nitroge n measurement (mass/volume)Ordered By: Dwain Nowak on 02-28-2023 Urea nitrogen [Mass/Vol] 35 mg/dL 7-18 [facility] Thin prep Papanicolaou smear with manual screeningOrdered By: Dwain Nowak on 02-28-2023 Thin prep Papanicolaou smear with manual screening 3 5-15 [facility] Stool gastrointestinal hemog lobin detection by immunologic methodOrdered By: Tobi Zapata on 01-30-2023 Lower GI hemoglobin IA Ql (Stl) [facility] Lower GI hemoglobin IA Ql (Stl) [facility] Absolute lymphocyte countOrd ered By: Tobi Zapata on 01-21-2023 Lymphocytes Auto (Unsp spec) [#/Vol] 2.12 10*3/uL 0.83-4.51 [facility] Basophil percentageOrdered B y: Tobi Zapata on 01-21-2023 Basophil percentage 401 mg/dL 74-106 [facility] Basophil percentage 6.7 g/dL 6.4-8.2 [facility] Basophil percentage 0.30 mg/dL 0.20-1.00 [facility] Basophil percentage 137 mmol/L 136-145 [facility] Basophil percentage 4.1 mmol/L 3.5-5.1 [facility] Basophil percentage 98 mmol/L 98-107 [facility] Basophil percentage 156 U/L 87-241 [facility] Basophils (Bld) [#/Vol] 11.0 10*3/uL 4.4-11.0 [facility] Basophils (Bld) [#/Vol] 7.5 10*3/uL 2.0-7.7 [facility] Basophils/100 WBC (Bld) 0.3 % 0-1 [facility] Basophils/100 WBC (Bld) 68.2 % 47-70 [facility] Basophils/100 WBC (Bld) 1.4 % 0-5 [facility] Bilirubin [Mass/Vol] 0.30 mg/dL 0.20-1.00 [facility] Comment on above: For patients on eltr ombopag therapy, use of Dimension [place] TBIL is not recommended. Chloride [Moles/Vol] 98 mmol/L 98-107 [facility] Eosinophils/100 WBC (Bld) 1.4 % 0-5 [facility] Glucose [Mass/Vol] 401 mg/dL 74-106 [facility] Comment on above: Glucose result great er than or equal to 200 mg/dLsuggests DIABETES MELLITUS per A.D.A. criteria. LDH [Catalytic activity/Vol] 156 U/L 87-241 [facility] Neutrophils (Bld) [#/Vol] 7.5 10*3/uL 2.0-7.7 [facility] Neutrophils/100 WBC (Bld) 68.2 % 47-70 [facility] Potassium [Moles/Vol] 4.1 mmol/L 3.5-5.1 [facility] Protein [Mass/Vol] 6.7 g/dL 6.4-8.2 [facility] Sodium [Moles/Vol] 137 mmol/L 136-145 [facility] WBC (Bld) [#/Vol] 11.0 10*3/uL 4.4-11.0 [facility] Blood erythrocytes count (nu mber/volume)Ordered By: Tobi Zapata on 01-21-2023 RBC (Bld) [#/Vol] 2.76 10*6/uL 4.6-6.2 [facility] Blood hemoglobin measurement (mass/volume)Ordered By: Tobi Zapata on 01-21-2023 Hemoglobin (Bld) [Mass/Vol] 7.4 g/dL 13.0-16.5 [facility] Blood lymphocytes/100 leukoc ytesOrdered By: Tobi Zapata on 01-21-2023 Lymphocytes/100 WBC (Bld) 19.3 % 19-41 [facility] Blood monocytes/100 leukocyt esOrdered By: Tobi Zapata on 01-21-2023 Monocytes/100 WBC (Bld) 9.4 % 0-10 [facility] Blood platelet mean volumeOr dered By: Tobi Zapata on 01-21-2023 Platelet mean volume (Bld) [Entitic vol] 10.9 fL 6.2-12.0 [facility] Determination of erythrocyte mean corpuscular volume (MCV)Ordered By: Tobi Zapata on 01-21-2023 MCV (RBC) [Entitic vol] 88.4 fL 80-94 [facility] Hematocrit Auto (Bld) [Volum e fraction]Ordered By: Tobi Zapata on 01-21-2023 Hematocrit (Bld) [Volume fraction] 24.4 % 40-54 [facility] Iron measurement (mass/mass) Ordered By: Tobi Zapata on 01-21-2023 Iron (Unsp spec) [Mass/Mass] 29 ug/dL 65-175 [facility] Laboratory - Chemistry and C hemistry - challengeOrdered By: Tobi Zapata on 01-21-2023 ALP [Catalytic activity/Vol] 75 U/L 45-117 [facility] ALT [Catalytic activity/Vol] 16 U/L 16-61 [facility] CO2 [Moles/Vol] 30.0 mmol/L 21.0-32.0 [facility] Globulin (S) [Mass/Vol] 3.3 g/dL 2.2-4.2 [facility] Urea nitrogen/Creatinine [Mass ratio] 29.5 mg/mg 10-20 [facility] Laboratory - Hematology and Cell countsOrdered By: Tobi Zapata on 01-21-2023 Erythrocyte distribution width (RBC) [Entitic vol] 50.6 fL 35.1-43.9 [facility] Erythrocyte distribution width (RBC) [Ratio] 15.9 % 11.6-14.6 [facility] Immature granulocytes/100 WBC (Bld) 1.400 % 0.0-0.9 [facility] Comment on above: IG% - Immature Granu locytes (promyelocytes, myelocytes and metamyelocytes) > 1% indicates that a LEFT SHIFT is Present. MCH (RBC) [Entitic mass] 26.8 pg 27.0-32.0 [facility] Nucleated RBC/100 WBC (Bld) [Ratio] 0.2 % 0-5 [facility] MCHC Auto (RBC) [Mass/Vol]Or dered By: Tobi Zapata on 01-21-2023 MCHC (RBC) [Mass/Vol] 30.3 g/dL 32-36 [facility] No Panel InformationOrdered By: Tobi Zapata on 01-21-2023 Estimated Creatinine Clearance Calc 31.85 ml/min [facility] Estimated GFR (MDRD) Amer 38 mL/min >60 [facility] Comment on above: GFR Calc Estimated GFR (MDRD) Non-Af Amer 31 mL/min >60 [facility] Comment on above: Non- GFR Calc Total Iron Binding Capacity 325 ug/dL 250-450 [facility] 26.8 pg 27.0-32.0 [facility] 15.9 % 11.6-14.6 [facility] 50.6 fl 35.1-43.9 [facility] 1.400 % 0.0-0.9 [facility] 0.2 % 0-5 [facility] 31 mL/min >60 [facility] 38 mL/min >60 [facility] 31.85 ml/min [facility] 29.5 RATIO 10-20 [facility] 3.3 g/dL 2.2-4.2 [facility] 75 U/L 45-117 [facility] 16 U/L 16-61 [facility] 30.0 mmol/L 21.0-32.0 [facility] 325 ug/dL 250-450 [facility] Platelets bldOrdered By: Mikael Zapata on 01-21-2023 Platelets (Bld) [#/Vol] 446 10*3/uL 150-450 [facility] Serum or plasma C reactive p rotein measurement (mass/volume)Ordered By: Tobi Zapata on 01-21-2023 CRP [Mass/Vol] 5.97 mg/L 0.0-3.0 [facility] Comment on above: C-Reactive Protein ( CRP) provides useful information for thediagnosis, therapy and monitoring of inflammatory processesand associated diseases. For the evaluation of Relative Riskfor Cardiovascular Disease, a High Sensitivity CRP (HSCRP)should be ordered. Serum or plasma albumin yocasta urement (mass/volume)Ordered By: Tobi Zapata on 01-21-2023 Albumin [Mass/Vol] 3.4 g/dL 3.2-5.0 [facility] Serum or plasma albumin/glob ulin mass ratioOrdered By: Tobi Zapata on 01-21-2023 Albumin/Globulin [Mass ratio] 1.0 {ratio} 0.9-2.4 [facility] Serum or plasma calcium yocasta urement (mass/volume)Ordered By: Tobi Zapata on 01-21-2023 Calcium [Mass/Vol] 8.9 mg/dL 8.5-10.1 [facility] Serum or plasma creatinine m easurement (mass/volume)Ordered By: Tobi Zapata on 01-21-2023 Creatinine [Mass/Vol] 2.20 mg/dL 0.70-1.30 [facility] Comment on above: The validity of the calculated GFR & GFRAA in patients over 70 years has not been determined. Clinical correlation is essential. Serum or plasma ferritin vasquez surement (mass/volume)Ordered By: Tobi Zapata on 01-21-2023 Ferritin [Mass/Vol] 48 ng/mL 26-388 [facility] Serum or plasma iron saturat ion measurement (mass fraction)Ordered By: Tobi Zapata on 01-21-2023 Iron saturation [Mass fraction] 8.9 % 15.0-55.0 [facility] Serum or plasma urea nitroge n measurement (mass/volume)Ordered By: Tobi Zapata on 01-21-2023 Urea nitrogen [Mass/Vol] 65 mg/dL 7-18 [facility] Thin prep Papanicolaou smear with manual screeningOrdered By: Tobi Zapata on 01-21-2023 Thin prep Papanicolaou smear with manual screening < 3 U/L 15-37 [facility] Thin prep Papanicolaou smear with manual screening 9 5-15 [facility] Laboratory - Chemistry and C hemistry - challengeOrdered By: Tobi Zapata on 11-26-2022 Cobalamin (Vitamin B12) [Mass/Vol] 924 pg/mL 211-911 [facility] Laboratory - Chemistry and C hemistry - challengeOrdered By: Donna Will on 11-26-2022 Magnesium [Mass/Vol] 1.9 mg/dL 1.6-2.6 [facility] No Panel InformationOrdered By: Donna Will on 11-26-2022 1.9 mg/dL 1.6-2.6 [facility] No Panel InformationOrdered By: Toib Zapata on 11-26-2022 924 pg/mL 211-911 [facility] Serum or plasma folate measu rement (mass/volume)Ordered By: Tobi Zapata on 11-26-2022 Folate [Mass/Vol] 5.30 ng/mL 3.1-55.4 [facility] Absolute lymphocyte countOrd ered By: Jordan Ortiz on 11-17-2022 Lymphocytes Auto (Unsp spec) [#/Vol] 1.51 10*3/uL 0.83-4.51 [facility] Basophil percentageOrdered B y: Jordan Ortiz on 11-17-2022 Basophil percentage 3.8 mg/dL 2.5-4.9 [facility] Basophil percentage 143 mg/dL 74-106 [facility] Basophil percentage 139 mmol/L 136-145 [facility] Basophil percentage 4.2 mmol/L 3.5-5.1 [facility] Basophil percentage 104 mmol/L 98-107 [facility] Basophils (Bld) [#/Vol] 7.8 10*3/uL 4.4-11.0 [facility] Basophils (Bld) [#/Vol] 4.7 10*3/uL 2.0-7.7 [facility] Basophils/100 WBC (Bld) 0.6 % 0-1 [facility] Basophils/100 WBC (Bld) 60.4 % 47-70 [facility] Basophils/100 WBC (Bld) 6.6 % 0-5 [facility] Chloride [Moles/Vol] 104 mmol/L 98-107 [facility] Eosinophils/100 WBC (Bld) 6.6 % 0-5 [facility] Glucose [Mass/Vol] 143 mg/dL 74-106 [facility] Comment on above: Fasting Glucose resu lt greater than or equal to 126 mg/dL suggests DIABETES MELLITUS per A.D.A. criteria. Neutrophils (Bld) [#/Vol] 4.7 10*3/uL 2.0-7.7 [facility] Neutrophils/100 WBC (Bld) 60.4 % 47-70 [facility] Potassium [Moles/Vol] 4.2 mmol/L 3.5-5.1 [facility] Sodium [Moles/Vol] 139 mmol/L 136-145 [facility] WBC (Bld) [#/Vol] 7.8 10*3/uL 4.4-11.0 [facility] Blood erythrocytes count (nu mber/volume)Ordered By: Jordan Ortiz on 11-17-2022 RBC (Bld) [#/Vol] 2.86 10*6/uL 4.6-6.2 [facility] Blood hemoglobin measurement (mass/volume)Ordered By: Jordan Ortiz on 11-17-2022 Hemoglobin (Bld) [Mass/Vol] 8.1 g/dL 13.0-16.5 [facility] Blood lymphocytes/100 leukoc ytesOrdered By: Jordan Ortiz on 11-17-2022 Lymphocytes/100 WBC (Bld) 19.4 % 19-41 [facility] Blood monocytes/100 leukocyt esOrdered By: Jordan Ortiz on 11-17-2022 Monocytes/100 WBC (Bld) 12.0 % 0-10 [facility] Blood platelet mean volumeOr dered By: Jordan Ortiz on 11-17-2022 Platelet mean volume (Bld) [Entitic vol] 10.9 fL 6.2-12.0 [facility] Determination of erythrocyte mean corpuscular volume (MCV)Ordered By: Jordan Ortiz on 11-17-2022 MCV (RBC) [Entitic vol] 94.1 fL 80-94 [facility] Glucose Glucometer (dC) [M ass/Vol]Ordered By: Jordan Ortiz on 11-17-2022 Glucose [Mass/Vol] 217 mg/dL 74-106 [facility] Comment on above: MANAGEMENT OF PATIEN T CARE PER NURSING PROTOCOL Hematocrit Auto (Bld) [Volum e fraction]Ordered By: Jordan Ortiz on 11-17-2022 Hematocrit (Bld) [Volume fraction] 26.9 % 40-54 [facility] Laboratory - Chemistry and C hemistry - challengeOrdered By: Jordan Ortiz on 11-17-2022 CO2 [Moles/Vol] 33.0 mmol/L 21.0-32.0 [facility] Magnesium [Mass/Vol] 2.1 mg/dL 1.6-2.6 [facility] Urea nitrogen/Creatinine [Mass ratio] 15.8 mg/mg 10-20 [facility] Laboratory - Hematology and Cell countsOrdered By: Jordan Ortiz on 11-17-2022 Erythrocyte distribution width (RBC) [Entitic vol] 53.9 fL 35.1-43.9 [facility] Erythrocyte distribution width (RBC) [Ratio] 15.8 % 11.6-14.6 [facility] Immature granulocytes/100 WBC (Bld) 1.000 % 0.0-0.9 [facility] Comment on above: IG% - Immature Granu locytes (promyelocytes, myelocytes and metamyelocytes) > 1% indicates that a LEFT SHIFT is Present. MCH (RBC) [Entitic mass] 28.3 pg 27.0-32.0 [facility] Nucleated RBC/100 WBC (Bld) [Ratio] 0.3 % 0-5 [facility] MCHC Auto (RBC) [Mass/Vol]Or dered By: Jodran Ortiz on 11-17-2022 MCHC (RBC) [Mass/Vol] 30.1 g/dL 32-36 [facility] No Panel InformationOrdered By: Jordan Ortiz on 11-17-2022 Estimated Creatinine Clearance Calc 42.47 ml/min [facility] Estimated GFR (MDRD) Amer 53 mL/min >60 [facility] Comment on above: GFR Calc Estimated GFR (MDRD) Non-Af Amer 44 mL/min >60 [facility] Comment on above: Non- GFR Calc 28.3 pg 27.0-32.0 [facility] 15.8 % 11.6-14.6 [facility] 53.9 fl 35.1-43.9 [facility] 1.000 % 0.0-0.9 [facility] 0.3 % 0-5 [facility] 44 mL/min >60 [facility] 53 mL/min >60 [facility] 42.47 ml/min [facility] 15.8 RATIO 10-20 [facility] 2.1 mg/dL 1.6-2.6 [facility] 33.0 mmol/L 21.0-32.0 [facility] Platelets bldOrdered By: Tino Ortiz on 11-17-2022 Platelets (Bld) [#/Vol] 240 10*3/uL 150-450 [facility] Serum or plasma calcium yocasta urement (mass/volume)Ordered By: Jordan Ortiz on 11-17-2022 Calcium [Mass/Vol] 8.2 mg/dL 8.5-10.1 [facility] Serum or plasma creatinine m easurement (mass/volume)Ordered By: Jordan Ortiz on 11-17-2022 Creatinine [Mass/Vol] 1.65 mg/dL 0.70-1.30 [facility] Comment on above: The validity of the calculated GFR & GFRAA in patients over 70 years has not been determined. Clinical correlation is essential. Serum or plasma urea nitroge n measurement (mass/volume)Ordered By: Jordan Ortiz on 11-17-2022 Urea nitrogen [Mass/Vol] 26 mg/dL 7-18 [facility] Thin prep Papanicolaou smear with manual screeningOrdered By: Jordan Ortiz on 11-17-2022 Thin prep Papanicolaou smear with manual screening 2 5-15 [facility] Absolute lymphocyte countOrd ered By: Jj Garcia on 11-15-2022 Lymphocytes Auto (Unsp spec) [#/Vol] 1.31 10*3/uL 0.83-4.51 [facility] Basophil percentageOrdered B y: Jj aGrcia on 11-15-2022 Basophils/100 WBC (Bld) 0.8 % 0-1 [facility] Chloride [Moles/Vol] 107 mmol/L 98-107 [facility] Eosinophils/100 WBC (Bld) 6.0 % 0-5 [facility] Glucose [Mass/Vol] 221 mg/dL 74-106 [facility] Comment on above: Glucose result great er than or equal to 200 mg/dLsuggests DIABETES MELLITUS per A.D.A. criteria. Neutrophils (Bld) [#/Vol] 4.8 10*3/uL 2.0-7.7 [facility] Neutrophils/100 WBC (Bld) 65.2 % 47-70 [facility] Potassium [Moles/Vol] 4.7 mmol/L 3.5-5.1 [facility] Sodium [Moles/Vol] 139 mmol/L 136-145 [facility] WBC (Bld) [#/Vol] 7.3 10*3/uL 4.4-11.0 [facility] Blood erythrocytes count (nu mber/volume)Ordered By: Jj Garcia on 11-15-2022 RBC (Bld) [#/Vol] 2.77 10*6/uL 4.6-6.2 [facility] Blood hemoglobin measurement (mass/volume)Ordered By: Jj Garcia on 11-15-2022 Hemoglobin (Bld) [Mass/Vol] 7.9 g/dL 13.0-16.5 [facility] Blood lymphocytes/100 leukoc ytesOrdered By: Jj Garcia on 11-15-2022 Lymphocytes/100 WBC (Bld) 17.9 % 19-41 [facility] Blood monocytes/100 leukocyt esOrdered By: Jjdaisy Garcia on 11-15-2022 Monocytes/100 WBC (Bld) 8.9 % 0-10 [facility] Blood platelet mean volumeOr dered By: Jj Garcia on 11-15-2022 Platelet mean volume (Bld) [Entitic vol] 10.9 fL 6.2-12.0 [facility] Determination of erythrocyte mean corpuscular volume (MCV)Ordered By: Jj Garcia on 11-15-2022 MCV (RBC) [Entitic vol] 96.4 fL 80-94 [facility] Hematocrit Auto (Bld) [Volum e fraction]Ordered By: Jjdaisy Garcia on 11-15-2022 Hematocrit (Bld) [Volume fraction] 26.7 % 40-54 [facility] Iron measurement (mass/mass) Ordered By: Loki Lozoya on 11-15-2022 Iron (Unsp spec) [Mass/Mass] 51 ug/dL 65-175 [facility] Laboratory - Chemistry and C hemistry - challengeOrdered By: Jjdaisy Garcia on 11-15-2022 CO2 [Moles/Vol] 33.0 mmol/L 21.0-32.0 [facility] Natriuretic peptide B (Bld) [Mass/Vol] 298.1 pg/mL 0-100 [facility] Urea nitrogen/Creatinine [Mass ratio] 13.6 mg/mg 10-20 [facility] Laboratory - Hematology and Cell countsOrdered By: Jjdaisy Garcia on 11-15-2022 Erythrocyte distribution width (RBC) [Entitic vol] 54.0 fL 35.1-43.9 [facility] Erythrocyte distribution width (RBC) [Ratio] 15.8 % 11.6-14.6 [facility] Immature granulocytes/100 WBC (Bld) 1.200 % 0.0-0.9 [facility] Comment on above: IG% - Immature Granu locytes (promyelocytes, myelocytes and metamyelocytes) > 1% indicates that a LEFT SHIFT is Present. MCH (RBC) [Entitic mass] 28.5 pg 27.0-32.0 [facility] Nucleated RBC/100 WBC (Bld) [Ratio] 0 % 0-5 [facility] Auto (RBC) [Mass/Vol]Or dered By: Jj Garcia on 11-15-2022 MCHC (RBC) [Mass/Vol] 29.6 g/dL 32-36 [facility] No Panel InformationOrdered By: Loki Lozoya on 11-15-2022 Total Iron Binding Capacity 243 ug/dL 250-450 [facility] Troponin I High Sensitivity 15 pg/mL 3.0-78.0 [facility] Comment on above: Please Note: New Nicole t Units and Gender Specific Reference Ranges. For more information see Policy Stat Procedure [place] High Sensitivity Troponin (TNIH) and attachments. 15 pg/mL 3.0-78.0 [facility] 243 ug/dL 250-450 [facility] No Panel InformationOrdered By: Jj Garcia on 11-15-2022 Estimated Creatinine Clearance Calc 31.52 ml/min [facility] Estimated GFR (MDRD) Amer 57 mL/min >60 [facility] Comment on above: GFR Calc Estimated GFR (MDRD) Non-Af Amer 47 mL/min >60 [facility] Comment on above: Non- GFR Calc Troponin I High Sensitivity 17 pg/mL 3.0-78.0 [facility] Comment on above: Please Note: New Nicole t Units and Gender Specific Reference Ranges. For more information see Policy Stat Procedure [place] High Sensitivity Troponin (TNIH) and attachments. 298.1 pg/mL 0-100 [facility] Platelets bldOrdered By: Jj Garcia on 11-15-2022 Platelets (Bld) [#/Vol] 274 10*3/uL 150-450 [facility] Serum or plasma calcium yocasta urement (mass/volume)Ordered By: Jj Garcia on 11-15-2022 Calcium [Mass/Vol] 8.5 mg/dL 8.5-10.1 [facility] Serum or plasma creatinine m easurement (mass/volume)Ordered By: Jj Garcia on 11-15-2022 Creatinine [Mass/Vol] 1.54 mg/dL 0.70-1.30 [facility] Comment on above: The validity of the calculated GFR & GFRAA in patients over 70 years has not been determined. Clinical correlation is essential. Serum or plasma ferritin vasquez surement (mass/volume)Ordered By: Loki Lozoya on 11-15-2022 Ferritin [Mass/Vol] 111 ng/mL 26-388 [facility] Serum or plasma iron saturat ion measurement (mass fraction)Ordered By: Loki Lozoya on 11-15-2022 Iron saturation [Mass fraction] 21.0 % 15.0-55.0 [facility] Serum or plasma urea nitroge n measurement (mass/volume)Ordered By: Jj Garcia on 11-15-2022 Urea nitrogen [Mass/Vol] 21 mg/dL 7-18 [facility] Thin prep Papanicolaou smear with manual screeningOrdered By: Jj Garcia on 11-15-2022 Thin prep Papanicolaou smear with manual screening -1 5-15 [facility] Whole blood hemoglobin A1c/t otal hemoglobin ratio (mass fraction)Ordered By: Loki Lozoya on 11-15-2022 HbA1c (Bld) [Mass fraction] 8.6 % 3.8-5.6 [facility] Comment on above: Normal < 5.7 % Predi abetic 5.7 - 6.4 % Diabetic >or= 6.5 % Please note range changes. Absolute lymphocyte countOrd ered By: Martha Dodson on 10-29-2022 Lymphocytes Auto (Unsp spec) [#/Vol] 1.37 10*3/uL 0.83-4.51 [facility] Basophil percentageOrdered B y: Martha Dodson on 10-29-2022 Basophils/100 WBC (Bld) 0.6 % 0-1 [facility] Bilirubin [Mass/Vol] 0.40 mg/dL 0.20-1.00 [facility] Comment on above: For patients on eltr ombopag therapy, use of Dimension [place] TBIL is not recommended. Chloride [Moles/Vol] 107 mmol/L 98-107 [facility] Eosinophils/100 WBC (Bld) 4.9 % 0-5 [facility] Glucose [Mass/Vol] 204 mg/dL 74-106 [facility] Comment on above: Glucose result great er than or equal to 200 mg/dLsuggests DIABETES MELLITUS per A.D.A. criteria. LDH [Catalytic activity/Vol] 173 U/L 87-241 [facility] Neutrophils (Bld) [#/Vol] 4.5 10*3/uL 2.0-7.7 [facility] Neutrophils/100 WBC (Bld) 64.4 % 47-70 [facility] Potassium [Moles/Vol] 3.8 mmol/L 3.5-5.1 [facility] Protein [Mass/Vol] 6.4 g/dL 6.4-8.2 [facility] Sodium [Moles/Vol] 140 mmol/L 136-145 [facility] WBC (Bld) [#/Vol] 6.9 10*3/uL 4.4-11.0 [facility] Blood erythrocytes count (nu mber/volume)Ordered By: Martha Dodson on 10-29-2022 RBC (Bld) [#/Vol] 2.80 10*6/uL 4.6-6.2 [facility] Blood hemoglobin measurement (mass/volume)Ordered By: Martha Dodson on 10-29-2022 Hemoglobin (Bld) [Mass/Vol] 7.9 g/dL 13.0-16.5 [facility] Blood lymphocytes/100 leukoc ytesOrdered By: Martha Dodson on 10-29-2022 Lymphocytes/100 WBC (Bld) 19.7 % 19-41 [facility] Blood monocytes/100 leukocyt esOrdered By: Martha Dodson on 10-29-2022 Monocytes/100 WBC (Bld) 9.4 % 0-10 [facility] Blood platelet mean volumeOr dered By: Martha Dodson on 10-29-2022 Platelet mean volume (Bld) [Entitic vol] 10.2 fL 6.2-12.0 [facility] Determination of erythrocyte mean corpuscular volume (MCV)Ordered By: Martha Dodson on 10-29-2022 MCV (RBC) [Entitic vol] 94.6 fL 80-94 [facility] Hematocrit Auto (Bld) [Volum e fraction]Ordered By: Martha Dodson on 10-29-2022 Hematocrit (Bld) [Volume fraction] 26.5 % 40-54 [facility] Laboratory - Chemistry and C hemistry - challengeOrdered By: Martha Dodson on 10-29-2022 ALP [Catalytic activity/Vol] 76 U/L 45-117 [facility] ALT [Catalytic activity/Vol] 13 U/L 16-61 [facility] CO2 [Moles/Vol] 28.0 mmol/L 21.0-32.0 [facility] Globulin (S) [Mass/Vol] 3.1 g/dL 2.2-4.2 [facility] Urea nitrogen/Creatinine [Mass ratio] 15.4 mg/mg 10-20 [facility] Laboratory - Hematology and Cell countsOrdered By: Martha Dodson on 10-29-2022 Erythrocyte distribution width (RBC) [Entitic vol] 49.1 fL 35.1-43.9 [facility] Erythrocyte distribution width (RBC) [Ratio] 14.2 % 11.6-14.6 [facility] Immature granulocytes/100 WBC (Bld) 1.000 % 0.0-0.9 [facility] Comment on above: IG% - Immature Granu locytes (promyelocytes, myelocytes and metamyelocytes) > 1% indicates that a LEFT SHIFT is Present. MCH (RBC) [Entitic mass] 28.2 pg 27.0-32.0 [facility] Nucleated RBC/100 WBC (Bld) [Ratio] 0 % 0-5 [facility] MCHC Auto (RBC) [Mass/Vol]Or dered By: Martha Dodson on 10-29-2022 MCHC (RBC) [Mass/Vol] 29.8 g/dL 32-36 [facility] No Panel InformationOrdered By: Martha Dodson on 10-29-2022 Estimated Creatinine Clearance Calc 47.03 ml/min [facility] Estimated GFR (MDRD) Amer 59 mL/min >60 [facility] Comment on above: GFR Calc Estimated GFR (MDRD) Non-Af Amer 49 mL/min >60 [facility] Comment on above: Non- GFR Calc Platelets bldOrdered By: Jayden Dodson on 10-29-2022 Platelets (Bld) [#/Vol] 269 10*3/uL 150-450 [facility] Serum or plasma albumin yocasta urement (mass/volume)Ordered By: Martha Dodson on 10-29-2022 Albumin [Mass/Vol] 3.3 g/dL 3.2-5.0 [facility] Serum or plasma albumin/glob ulin mass ratioOrdered By: Martha Dodson on 10-29-2022 Albumin/Globulin [Mass ratio] 1.1 {ratio} 0.9-2.4 [facility] Serum or plasma calcium yocasta urement (mass/volume)Ordered By: Martha Dodson on 10-29-2022 Calcium [Mass/Vol] 8.5 mg/dL 8.5-10.1 [facility] Serum or plasma creatinine m easurement (mass/volume)Ordered By: Martha Dodson on 10-29-2022 Creatinine [Mass/Vol] 1.49 mg/dL 0.70-1.30 [facility] Comment on above: The validity of the calculated GFR & GFRAA in patients over 70 years has not been determined. Clinical correlation is essential. Serum or plasma urea nitroge n measurement (mass/volume)Ordered By: Martha Dodson on 10-29-2022 Urea nitrogen [Mass/Vol] 23 mg/dL 7-18 [facility] Thin prep Papanicolaou smear with manual screeningOrdered By: Martha Dodson on 10-29-2022 Thin prep Papanicolaou smear with manual screening 8 U/L 15-37 [facility] Thin prep Papanicolaou smear with manual screening 5 5-15 [facility] Iron measurement (mass/mass) Ordered By: Martha Dodson on 09-30-2022 Iron (Unsp spec) [Mass/Mass] 30 ug/dL 65-175 [facility] No Panel InformationOrdered By: Martha Dodson on 09-30-2022 Thyroid Stimulating Hormone (TSH) 1.54 uIU/mL 0.358-3.74 [facility] Total Iron Binding Capacity 278 ug/dL 250-450 [facility] 1.54 uIU/mL 0.358-3.74 [facility] Serum or plasma ferritin vasquez surement (mass/volume)Ordered By: Martha Dodson on 09-30-2022 Ferritin [Mass/Vol] 37 ng/mL 26-388 [facility] Serum or plasma iron saturat ion measurement (mass fraction)Ordered By: Martha Dodson on 09-30-2022 Iron saturation [Mass fraction] 10.8 % 15.0-55.0 [facility] Laboratory - Chemistry and C hemistry - challengeOrdered By: Tobi Zapata on 09-04-2022 Cobalamin (Vitamin B12) [Mass/Vol] 547 pg/mL 211-911 [facility] Serum or plasma folate measu rement (mass/volume)Ordered By: Tobi Zapata on 09-04-2022 Folate [Mass/Vol] 6.50 ng/mL 3.1-55.4 [facility] Absolute lymphocyte countOrd ered By: Adam Freeman on 08-29-2022 Lymphocytes Auto (Unsp spec) [#/Vol] 1.02 10*3/uL 0.83-4.51 [facility] Basophil percentageOrdered B y: Adam Freeman on 08-29-2022 Basophils/100 WBC (Bld) 0.6 % 0-1 [facility] Bilirubin [Mass/Vol] 0.40 mg/dL 0.20-1.00 [facility] Comment on above: For patients on eltr ombopag therapy, use of Dimension [place] TBIL is not recommended. Chloride [Moles/Vol] 106 mmol/L 98-107 [facility] Eosinophils/100 WBC (Bld) 4.3 % 0-5 [facility] Glucose [Mass/Vol] 338 mg/dL 74-106 [facility] Comment on above: Glucose result great er than or equal to 200 mg/dLsuggests DIABETES MELLITUS per A.D.A. criteria. Neutrophils (Bld) [#/Vol] 4.5 10*3/uL 2.0-7.7 [facility] Neutrophils/100 WBC (Bld) 68.2 % 47-70 [facility] Potassium [Moles/Vol] 4.3 mmol/L 3.5-5.1 [facility] Protein [Mass/Vol] 7.0 g/dL 6.4-8.2 [facility] Sodium [Moles/Vol] 139 mmol/L 136-145 [facility] WBC (Bld) [#/Vol] 6.5 10*3/uL 4.4-11.0 [facility] Blood erythrocytes count (nu mber/volume)Ordered By: Adam Freeman on 08-29-2022 RBC (Bld) [#/Vol] 2.58 10*6/uL 4.6-6.2 [facility] Blood hemoglobin measurement (mass/volume)Ordered By: Adam Freeman on 08-29-2022 Hemoglobin (Bld) [Mass/Vol] 7.9 g/dL 13.0-16.5 [facility] Blood hemoglobin measurement (mass/volume)Ordered By: Khai Galeana on 08-29-2022 Hemoglobin (Bld) [Mass/Vol] 7.8 g/dL 13.0-16.5 [facility] Blood lymphocytes/100 leukoc ytesOrdered By: Adam Freeman on 08-29-2022 Lymphocytes/100 WBC (Bld) 15.6 % 19-41 [facility] Blood monocytes/100 leukocyt esOrdered By: Adam Freeman on 08-29-2022 Monocytes/100 WBC (Bld) 10.4 % 0-10 [facility] Blood platelet mean volumeOr dered By: Adam Freeman on 08-29-2022 Platelet mean volume (Bld) [Entitic vol] 10.4 fL 6.2-12.0 [facility] Determination of erythrocyte mean corpuscular volume (MCV)Ordered By: Adam Freeman on 08-29-2022 MCV (RBC) [Entitic vol] 95.7 fL 80-94 [facility] Hematocrit Auto (Bld) [Volum e fraction]Ordered By: Adam Freeman on 08-29-2022 Hematocrit (Bld) [Volume fraction] 24.7 % 40-54 [facility] Hematocrit Auto (Bld) [Volum e fraction]Ordered By: Khai Galeana on 08-29-2022 Hematocrit (Bld) [Volume fraction] 26.2 % 40-54 [facility] Laboratory - Chemistry and C hemistry - challengeOrdered By: Adam Freeman on 08-29-2022 ALP [Catalytic activity/Vol] 86 U/L 45-117 [facility] ALT [Catalytic activity/Vol] 19 U/L 16-61 [facility] CO2 [Moles/Vol] 28.0 mmol/L 21.0-32.0 [facility] Globulin (S) [Mass/Vol] 3.6 g/dL 2.2-4.2 [facility] Urea nitrogen/Creatinine [Mass ratio] 20.3 mg/mg 10-20 [facility] Laboratory - Hematology and Cell countsOrdered By: Adam Freeman on 08-29-2022 Erythrocyte distribution width (RBC) [Entitic vol] 50.5 fL 35.1-43.9 [facility] Erythrocyte distribution width (RBC) [Ratio] 14.7 % 11.6-14.6 [facility] Immature granulocytes/100 WBC (Bld) 0.900 % 0.0-0.9 [facility] Comment on above: IG% - Immature Granu locytes (promyelocytes, myelocytes and metamyelocytes) > 1% indicates that a LEFT SHIFT is Present. MCH (RBC) [Entitic mass] 30.6 pg 27.0-32.0 [facility] Nucleated RBC/100 WBC (Bld) [Ratio] 0 % 0-5 [facility] MCHC Auto (RBC) [Mass/Vol]Or dered By: Adam Freeman on 08-29-2022 MCHC (RBC) [Mass/Vol] 32.0 g/dL 32-36 [facility] No Panel InformationOrdered By: Adam Freeman on 08-29-2022 Estimated GFR (MDRD) Amer 62 mL/min >60 [facility] Comment on above: GFR Calc Estimated GFR (MDRD) Non-Af Amer 52 mL/min >60 [facility] Comment on above: Non- GFR Calc Platelets bldOrdered By: Valerie Freeman on 08-29-2022 Platelets (Bld) [#/Vol] 264 10*3/uL 150-450 [facility] Serum or plasma albumin yocasta urement (mass/volume)Ordered By: Adam Freeman on 08-29-2022 Albumin [Mass/Vol] 3.4 g/dL 3.2-5.0 [facility] Serum or plasma albumin/glob ulin mass ratioOrdered By: Adam Freeman on 08-29-2022 Albumin/Globulin [Mass ratio] 0.9 {ratio} 0.9-2.4 [facility] Serum or plasma calcium yocasta urement (mass/volume)Ordered By: Adam Freeman on 08-29-2022 Calcium [Mass/Vol] 8.8 mg/dL 8.5-10.1 [facility] Serum or plasma creatinine m easurement (mass/volume)Ordered By: Adam Freeman on 08-29-2022 Creatinine [Mass/Vol] 1.43 mg/dL 0.70-1.30 [facility] Comment on above: The validity of the calculated GFR & GFRAA in patients over 70 years has not been determined. Clinical correlation is essential. Serum or plasma urea nitroge n measurement (mass/volume)Ordered By: Adam Freeman on 08-29-2022 Urea nitrogen [Mass/Vol] 29 mg/dL 7-18 [facility] Thin prep Papanicolaou smear with manual screeningOrdered By: Adam Freeman on 08-29-2022 Thin prep Papanicolaou smear with manual screening 9 U/L 15-37 [facility] Thin prep Papanicolaou smear with manual screening 5 5-15 [facility] Absolute lymphocyte countOrd ered By: Tobi Zapata on 08-08-2022 Lymphocytes Auto (Unsp spec) [#/Vol] 1.70 10*3/uL 0.83-4.51 [facility] Basophil percentageOrdered B y: Tobi Zapata on 08-08-2022 Basophils/100 WBC (Bld) 0.6 % 0-1 [facility] Eosinophils/100 WBC (Bld) 4.5 % 0-5 [facility] Neutrophils (Bld) [#/Vol] 3.7 10*3/uL 2.0-7.7 [facility] Neutrophils/100 WBC (Bld) 55.8 % 47-70 [facility] WBC (Bld) [#/Vol] 6.7 10*3/uL 4.4-11.0 [facility] Blood erythrocytes count (nu mber/volume)Ordered By: Tobi Zapata on 08-08-2022 RBC (Bld) [#/Vol] 2.52 10*6/uL 4.6-6.2 [facility] Blood hemoglobin measurement (mass/volume)Ordered By: Tobi Zapata on 08-08-2022 Hemoglobin (Bld) [Mass/Vol] 7.6 g/dL 13.0-16.5 [facility] Blood lymphocytes/100 leukoc ytesOrdered By: Tobi Zapata on 08-08-2022 Lymphocytes/100 WBC (Bld) 25.4 % 19-41 [facility] Blood monocytes/100 leukocyt esOrdered By: Toib Zapata on 08-08-2022 Monocytes/100 WBC (Bld) 12.1 % 0-10 [facility] Blood platelet mean volumeOr dered By: Tobi Zapata on 08-08-2022 Platelet mean volume (Bld) [Entitic vol] 10.3 fL 6.2-12.0 [facility] Determination of erythrocyte mean corpuscular volume (MCV)Ordered By: Tobi Zapata on 08-08-2022 MCV (RBC) [Entitic vol] 99.2 fL 80-94 [facility] Hematocrit Auto (Bld) [Volum e fraction]Ordered By: Tobi Zapata on 08-08-2022 Hematocrit (Bld) [Volume fraction] 25.0 % 40-54 [facility] Laboratory - Hematology and Cell countsOrdered By: Tobi Zapata on 08-08-2022 Erythrocyte distribution width (RBC) [Entitic vol] 54.2 fL 35.1-43.9 [facility] Erythrocyte distribution width (RBC) [Ratio] 15.0 % 11.6-14.6 [facility] Immature granulocytes/100 WBC (Bld) 1.600 % 0.0-0.9 [facility] Comment on above: IG% - Immature Granu locytes (promyelocytes, myelocytes and metamyelocytes) > 1% indicates that a LEFT SHIFT is Present. MCH (RBC) [Entitic mass] 30.2 pg 27.0-32.0 [facility] Nucleated RBC/100 WBC (Bld) [Ratio] 0.3 % 0-5 [facility] MCHC Auto (RBC) [Mass/Vol]Or dered By: Tobi Zapata on 08-08-2022 MCHC (RBC) [Mass/Vol] 30.4 g/dL 32-36 [facility] Platelets bldOrdered By: Mikael Zapata on 08-08-2022 Platelets (Bld) [#/Vol] 210 10*3/uL 150-450 [facility] Lower GI hemoglobin IA Ql (S tl)Ordered By: Tobi Zapata on 07-29-2022 Stool Occult Blood (FOREST) Positive [facility] Stool gastrointestinal hemoglobin detection by immunologic method Positive Abnormal [facility] Stool gastrointestinal hemog lobin detection by immunologic methodOrdered By: Tobi Zapata on 07-29-2022 Lower GI hemoglobin IA Ql (Stl) Positive Abnormal [facility] Basophil percentageOrdered B y: Tobi Zapata on 07-23-2022 Bilirubin [Mass/Vol] 0.30 mg/dL 0.20-1.00 [facility] Comment on above: For patients on eltr ombopag therapy, use of Dimension [place] TBIL is not recommended. Chloride [Moles/Vol] 115 mmol/L 98-107 [facility] Glucose [Mass/Vol] 323 mg/dL 74-106 [facility] Comment on above: Glucose result great er than or equal to 200 mg/dLsuggests DIABETES MELLITUS per A.D.A. criteria. LDH [Catalytic activity/Vol] 170 U/L 87-241 [facility] Potassium [Moles/Vol] 5.7 mmol/L 3.5-5.1 [facility] Protein [Mass/Vol] 6.2 g/dL 6.4-8.2 [facility] Sodium [Moles/Vol] 142 mmol/L 136-145 [facility] Iron measurement (mass/mass) Ordered By: Tobi Zapata on 07-23-2022 Iron (Unsp spec) [Mass/Mass] 70 ug/dL 65-175 [facility] Laboratory - Chemistry and C hemistry - challengeOrdered By: Tobi Zapata on 07-23-2022 ALP [Catalytic activity/Vol] 90 U/L 45-117 [facility] ALT [Catalytic activity/Vol] 19 U/L 16-61 [facility] CO2 [Moles/Vol] 20.0 mmol/L 21.0-32.0 [facility] Globulin (S) [Mass/Vol] 3.0 g/dL 2.2-4.2 [facility] Urea nitrogen/Creatinine [Mass ratio] 30.8 mg/mg 10-20 [facility] No Panel InformationOrdered By: Tobi Zapata on 07-23-2022 Estimated Creatinine Clearance Calc 48.71 ml/min [facility] Estimated GFR (MDRD) Amer 61 mL/min >60 [facility] Comment on above: GFR Calc Estimated GFR (MDRD) Non-Af Amer 50 mL/min >60 [facility] Comment on above: Non- GFR Calc Total Iron Binding Capacity 239 ug/dL 250-450 [facility] Serum or plasma albumin yocasta urement (mass/volume)Ordered By: Tobi Zapata on 07-23-2022 Albumin [Mass/Vol] 3.2 g/dL 3.2-5.0 [facility] Serum or plasma albumin/glob ulin mass ratioOrdered By: Tobi Zapata on 07-23-2022 Albumin/Globulin [Mass ratio] 1.1 {ratio} 0.9-2.4 [facility] Serum or plasma calcium yocasta urement (mass/volume)Ordered By: Tobi Zapata on 07-23-2022 Calcium [Mass/Vol] 8.1 mg/dL 8.5-10.1 [facility] Serum or plasma creatinine m easurement (mass/volume)Ordered By: Tobi Zapata on 07-23-2022 Creatinine [Mass/Vol] 1.46 mg/dL 0.70-1.30 [facility] Comment on above: The validity of the calculated GFR & GFRAA in patients over 70 years has not been determined. Clinical correlation is essential. Serum or plasma ferritin vasquez surement (mass/volume)Ordered By: Tobi Zapata on 07-23-2022 Ferritin [Mass/Vol] 98 ng/mL 26-388 [facility] Serum or plasma iron saturat ion measurement (mass fraction)Ordered By: Tobi Zapata on 07-23-2022 Iron saturation [Mass fraction] 29.3 % 15.0-55.0 [facility] Serum or plasma urea nitroge n measurement (mass/volume)Ordered By: Tobi Zapata on 07-23-2022 Urea nitrogen [Mass/Vol] 45 mg/dL 7-18 [facility] Thin prep Papanicolaou smear with manual screeningOrdered By: Tobi Zapata on 07-23-2022 Thin prep Papanicolaou smear with manual screening 13 U/L 15-37 [facility] Thin prep Papanicolaou smear with manual screening 7 5-15 [facility] Basophil percentageOrdered B y: Nate Bearden on 07-09-2022 Creatinine [Mass/Vol] 1.4 mg/dL 0.70-1.30 [facility] Laboratory - Chemistry and C hemistry - challengeOrdered By: Nate Bearden on 07-09-2022 GFR/1.73 sq M.predicted among non-blacks MDRD (S/P/Bld) [Vol rate/Area] 53.0000 mL/min/{1.73_m2} >60 [facility] Blood hemoglobin measurement (mass/volume)Ordered By: Khai Galeana on 06-19-2022 Hemoglobin (Bld) [Mass/Vol] 9.7 g/dL 13.0-16.5 [facility] Hematocrit Auto (Bld) [Volum e fraction]Ordered By: Khaimarielena Galeana on 06-19-2022 Hematocrit (Bld) [Volume fraction] 31.7 % 40-54 [facility] Iron measurement (mass/mass) Ordered By: Khai Galeana on 06-19-2022 Iron (Unsp spec) [Mass/Mass] 115 ug/dL 65-175 [facility] No Panel InformationOrdered By: Khai Galeana on 06-19-2022 Prostate Specific Antigen Screen 1.24 ng/mL 0.00-4.00 [facility] Comment on above: This test was perfor med using the TPSA assay method [facility] the[facility]. Values obtained with differentassay methods cannot be used interchangably.When changing PSA assays in the course of monitoring apatient, additional sequential testing should be carriedout to confirm baseline values. Total Iron Binding Capacity 257 ug/dL 250-450 [facility] Serum or plasma ferritin vasquez surement (mass/volume)Ordered By: Khai Galeana on 06-19-2022 Ferritin [Mass/Vol] 283 ng/mL 26-388 [facility] Serum or plasma iron saturat ion measurement (mass fraction)Ordered By: Khai Galeana on 06-19-2022 Iron saturation [Mass fraction] 44.7 % 15.0-55.0 [facility] Stool gastrointestinal hemog lobin detection by immunologic methodOrdered By: Tobi Zapata on 03-10-2023 Lower GI hemoglobin IA Ql (Stl) [facility] Stool gastrointestinal hemog lobin detection by immunologic methodOrdered By: Dr. Zapata on 05-03-2022 Lower GI hemoglobin IA Ql (Stl) [facility] Absolute lymphocyte countOrd ered By: Dr. Zapata on 04-29-2022 Lymphocytes Auto (Unsp spec) [#/Vol] 3.43 10*3/uL 0.83-4.51 [facility] Basophil percentageOrdered B y: Dr. Zapata on 04-29-2022 Basophils/100 WBC (Bld) 0.6 % 0-1 [facility] Bilirubin [Mass/Vol] 0.30 mg/dL 0.20-1.00 [facility] Comment on above: For patients on eltr ombopag therapy, use of Dimension [place] TBIL is not recommended. Chloride [Moles/Vol] 109 mmol/L 98-107 [facility] Eosinophils/100 WBC (Bld) 4.5 % 0-5 [facility] Glucose [Mass/Vol] 209 mg/dL 74-106 [facility] Comment on above: Glucose result great er than or equal to 200 mg/dLsuggests DIABETES MELLITUS per A.D.A. criteria. LDH [Catalytic activity/Vol] 223 U/L 87-241 [facility] Neutrophils (Bld) [#/Vol] 5.4 10*3/uL 2.0-7.7 [facility] Neutrophils/100 WBC (Bld) 49.7 % 47-70 [facility] Potassium [Moles/Vol] 4.5 mmol/L 3.5-5.1 [facility] Protein [Mass/Vol] 7.4 g/dL 6.4-8.2 [facility] Sodium [Moles/Vol] 141 mmol/L 136-145 [facility] WBC (Bld) [#/Vol] 10.8 10*3/uL 4.4-11.0 [facility] Blood erythrocytes count (nu mber/volume)Ordered By: Dr. Zapata on 04-29-2022 RBC (Bld) [#/Vol] 2.87 10*6/uL 4.6-6.2 [facility] Blood hemoglobin measurement (mass/volume)Ordered By: Dr. Zapata on 04-29-2022 Hemoglobin (Bld) [Mass/Vol] 8.5 g/dL 13.0-16.5 [facility] Blood lymphocytes/100 leukoc ytesOrdered By: Dr. Zapata on 04-29-2022 Lymphocytes/100 WBC (Bld) 31.8 % 19-41 [facility] Blood monocytes/100 leukocyt esOrdered By: Dr. Zapata on 04-29-2022 Monocytes/100 WBC (Bld) 11.9 % 0-10 [facility] Blood platelet mean volumeOr dered By: Dr. Zapata on 04-29-2022 Platelet mean volume (Bld) [Entitic vol] 9.6 fL 6.2-12.0 [facility] Determination of erythrocyte mean corpuscular volume (MCV)Ordered By: Dr. Zapata on 04-29-2022 MCV (RBC) [Entitic vol] 92.0 fL 80-94 [facility] Hematocrit Auto (Bld) [Volum e fraction]Ordered By: Dr. Zapata on 04-29-2022 Hematocrit (Bld) [Volume fraction] 26.4 % 40-54 [facility] Hemoglobin in reticulocytes (mass per reticulocyte)Ordered By: Dr. Zapata on 04-29-2022 Hemoglobin (Reticulocytes) [Entitic mass] 27.7 pg 30-35 [facility] Iron measurement (mass/mass) Ordered By: Dr. Zapata on 04-29-2022 Iron (Unsp spec) [Mass/Mass] 38 ug/dL 65-175 [facility] Laboratory - Chemistry and C hemistry - challengeOrdered By: Dr. Zapata on 04-29-2022 ALP [Catalytic activity/Vol] 82 U/L 45-117 [facility] ALT [Catalytic activity/Vol] 15 U/L 16-61 [facility] CO2 [Moles/Vol] 24.0 mmol/L 21.0-32.0 [facility] Globulin (S) [Mass/Vol] 4.2 g/dL 2.2-4.2 [facility] Urea nitrogen/Creatinine [Mass ratio] 22.9 mg/mg 10-20 [facility] Laboratory - Hematology and Cell countsOrdered By: Dr. Zapata on 04-29-2022 Erythrocyte distribution width (RBC) [Entitic vol] 48.0 fL 35.1-43.9 [facility] Erythrocyte distribution width (RBC) [Ratio] 14.3 % 11.6-14.6 [facility] Immature granulocytes/100 WBC (Bld) 1.500 % 0.0-0.9 [facility] Comment on above: IG% - Immature Granu locytes (promyelocytes, myelocytes and metamyelocytes) > 1% indicates that a LEFT SHIFT is Present. MCH (RBC) [Entitic mass] 29.6 pg 27.0-32.0 [facility] Nucleated RBC/100 WBC (Bld) [Ratio] 0 % 0-5 [facility] MCHC Auto (RBC) [Mass/Vol]Or dered By: Dr. Zapata on 04-29-2022 MCHC (RBC) [Mass/Vol] 32.2 g/dL 32-36 [facility] No Panel InformationOrdered By: Dr. Zapata on 04-29-2022 Estimated Creatinine Clearance Calc 54.29 ml/min [facility] Estimated GFR (MDRD) Amer 69 mL/min >60 [facility] Comment on above: GFR Calc Estimated GFR (MDRD) Non-Af Amer 57 mL/min >60 [facility] Comment on above: Non- GFR Calc Immature Reticulocyte Fraction 31.80 % 3.00-15.90 [facility] Reticulocyte Count 2.75 % 0.5-1.5 [facility] Total Iron Binding Capacity 256 ug/dL 250-450 [facility] No Panel InformationOrdered By: Tobi Zapata on 04-29-2022 2.75 % 0.5-1.5 [facility] 31.80 % 3.00-15.90 [facility] Platelets bldOrdered By: Dr. Zapata on 04-29-2022 Platelets (Bld) [#/Vol] 398 10*3/uL 150-450 [facility] Serum or plasma albumin yocasta urement (mass/volume)Ordered By: Dr. Zapata on 04-29-2022 Albumin [Mass/Vol] 3.2 g/dL 3.2-5.0 [facility] Serum or plasma albumin/glob ulin mass ratioOrdered By: Dr. Zapata on 04-29-2022 Albumin/Globulin [Mass ratio] 0.8 {ratio} 0.9-2.4 [facility] Serum or plasma calcium yocasta urement (mass/volume)Ordered By: Dr. Zapata on 04-29-2022 Calcium [Mass/Vol] 9.3 mg/dL 8.5-10.1 [facility] Serum or plasma creatinine m easurement (mass/volume)Ordered By: Dr. Zapata on 04-29-2022 Creatinine [Mass/Vol] 1.31 mg/dL 0.70-1.30 [facility] Comment on above: The validity of the calculated GFR & GFRAA in patients over 70 years has not been determined. Clinical correlation is essential. Serum or plasma ferritin vasquez surement (mass/volume)Ordered By: Dr. Zapata on 04-29-2022 Ferritin [Mass/Vol] 203 ng/mL 26-388 [facility] Serum or plasma iron saturat ion measurement (mass fraction)Ordered By: Dr. Zapata on 04-29-2022 Iron saturation [Mass fraction] 14.8 % 15.0-55.0 [facility] Serum or plasma urea nitroge n measurement (mass/volume)Ordered By: Dr. Zapata on 04-29-2022 Urea nitrogen [Mass/Vol] 30 mg/dL 7-18 [facility] Thin prep Papanicolaou smear with manual screeningOrdered By: Dr. Zapata on 04-29-2022 Thin prep Papanicolaou smear with manual screening 9 U/L 15-37 [facility] Thin prep Papanicolaou smear with manual screening 8 5-15 [facility] Basophil percentageOrdered B y: DANNIELLE PIÑA on 03-09-2022 Basophils (Bld) [#/Vol] 5.6 10*3/uL 4.4-11.0 [facility] WBC (Bld) [#/Vol] 5.6 10*3/uL 4.4-11.0 [facility] Blood erythrocytes count (nu mber/volume)Ordered By: DANNIELLE PIÑA on 03-09-2022 RBC (Bld) [#/Vol] 3.47 10*6/uL 4.6-6.2 [facility] Blood hemoglobin measurement (mass/volume)Ordered By: DANNIELLE PIÑA on 03-09-2022 Hemoglobin (Bld) [Mass/Vol] 9.6 g/dL 13.0-16.5 [facility] Blood platelet mean volumeOr dered By: DANNIELLE PIÑA on 03-09-2022 Platelet mean volume (Bld) [Entitic vol] 10.8 fL 6.2-12.0 [facility] Determination of erythrocyte mean corpuscular volume (MCV)Ordered By: DANNIELLE PIÑA on 03-09-2022 MCV (RBC) [Entitic vol] 88.2 fL 80-94 [facility] Hematocrit Auto (Bld) [Volum e fraction]Ordered By: DANNIELLE PIÑA on 03-09-2022 Hematocrit (Bld) [Volume fraction] 30.6 % 40-54 [facility] Laboratory - Hematology and Cell countsOrdered By: DANNIELLE PIÑA on 03-09-2022 Erythrocyte distribution width (RBC) [Entitic vol] 49.5 fL 35.1-43.9 [facility] Erythrocyte distribution width (RBC) [Ratio] 15.5 % 11.6-14.6 [facility] MCH (RBC) [Entitic mass] 27.7 pg 27.0-32.0 [facility] MCHC Auto (RBC) [Mass/Vol]Or dered By: DANNIELLE PIÑA on 03-09-2022 MCHC (RBC) [Mass/Vol] 31.4 g/dL 32-36 [facility] No Panel InformationOrdered By: DANNIELLE PIÑA on 03-09-2022 27.7 pg 27.0-32.0 [facility] 15.5 % 11.6-14.6 [facility] 49.5 fl 35.1-43.9 [facility] Platelets bldOrdered By: EDWARD NEWSOME on 03-09-2022 Platelets (Bld) [#/Vol] 265 10*3/uL 150-450 [facility] Laboratory - Microbiology an d Antimicrobial susceptibilityOrdered By: Dr. Walker on 02-20-2022 Bacteria identified Cx Nom (Bld) No growth in 5 days. [facility] No Panel InformationOrdered By: Dr. Walker on 02-20-2022 No growth in 5 days. [facility] Bacteria identified Cx Nom ( U)Ordered By: Dr. Walker on 02-16-2022 Culture, urine Positive [facility] Culture, urineOrdered By: Dr Juan Walker on 02-16-2022 Bacteria identified Cx Nom (U) Positive [facility] Laboratory - Microbiology an d Antimicrobial susceptibilityOrdered By: Dr. Rosas on 02-16-2022 Respiratory pathogens DNA and RNA 12b panel JUSTIN+probe (Unsp spec) [facility] Absolute lymphocyte countOrd ered By: Dr. Shannon on 02-15-2022 Lymphocytes Auto (Unsp spec) [#/Vol] 2.99 10*3/uL 0.83-4.51 [facility] Basophil percentageOrdered B y: Dr. Shannon on 02-15-2022 Basophil percentage 161 mg/dL 74-106 [facility] Basophil percentage 139 mmol/L 136-145 [facility] Basophil percentage 4.1 mmol/L 3.5-5.1 [facility] Basophil percentage 107 mmol/L 98-107 [facility] Basophils (Bld) [#/Vol] 11.1 10*3/uL 4.4-11.0 [facility] Basophils (Bld) [#/Vol] 6.1 10*3/uL 2.0-7.7 [facility] Basophils/100 WBC (Bld) 0.6 % 0-1 [facility] Basophils/100 WBC (Bld) 54.4 % 47-70 [facility] Basophils/100 WBC (Bld) 3.0 % 0-5 [facility] Chloride [Moles/Vol] 107 mmol/L 98-107 [facility] Eosinophils/100 WBC (Bld) 3.0 % 0-5 [facility] Glucose [Mass/Vol] 161 mg/dL 74-106 [facility] Comment on above: Fasting Glucose resu lt greater than or equal to 126 mg/dL suggests DIABETES MELLITUS per A.D.A. criteria. Neutrophils (Bld) [#/Vol] 6.1 10*3/uL 2.0-7.7 [facility] Neutrophils/100 WBC (Bld) 54.4 % 47-70 [facility] Potassium [Moles/Vol] 4.1 mmol/L 3.5-5.1 [facility] Sodium [Moles/Vol] 139 mmol/L 136-145 [facility] WBC (Bld) [#/Vol] 11.1 10*3/uL 4.4-11.0 [facility] Blood erythrocytes count (nu mber/volume)Ordered By: Dr. Shannon on 02-15-2022 RBC (Bld) [#/Vol] 3.68 10*6/uL 4.6-6.2 [facility] Blood hemoglobin measurement (mass/volume)Ordered By: Dr. Shannon on 02-15-2022 Hemoglobin (Bld) [Mass/Vol] 10.5 g/dL 13.0-16.5 [facility] Blood lymphocytes/100 leukoc ytesOrdered By: Dr. Shannon on 02-15-2022 Lymphocytes/100 WBC (Bld) 26.8 % 19-41 [facility] Blood manual differential co mment interpretation (narrative result)Ordered By: Dr. Shannon on 02-15-2022 Manual differential comment Sohan (Bld) [Interp] SCANNED [facility] Blood monocytes/100 leukocyt esOrdered By: Dr. Shannon on 02-15-2022 Monocytes/100 WBC (Bld) 14.3 % 0-10 [facility] Blood platelet mean volumeOr dered By: Dr. Shannon on 02-15-2022 Platelet mean volume (Bld) [Entitic vol] 10.6 fL 6.2-12.0 [facility] Determination of erythrocyte mean corpuscular volume (MCV)Ordered By: Dr. Shannon on 02-15-2022 MCV (RBC) [Entitic vol] 89.1 fL 80-94 [facility] Hematocrit Auto (Bld) [Volum e fraction]Ordered By: Dr. Shannon on 02-15-2022 Hematocrit (Bld) [Volume fraction] 32.8 % 40-54 [facility] Laboratory - Chemistry and C hemistry - challengeOrdered By: Dr. Shannon on 02-15-2022 CO2 [Moles/Vol] 25.0 mmol/L 21.0-32.0 [facility] Urea nitrogen/Creatinine [Mass ratio] 25.8 mg/mg 10-20 [facility] Laboratory - Hematology and Cell countsOrdered By: Dr. Shannon on 02-15-2022 Erythrocyte distribution width (RBC) [Entitic vol] 49.6 fL 35.1-43.9 [facility] Erythrocyte distribution width (RBC) [Ratio] 15.2 % 11.6-14.6 [facility] Immature granulocytes/100 WBC (Bld) 0.900 % 0.0-0.9 [facility] Comment on above: IG% - Immature Granu locytes (promyelocytes, myelocytes and metamyelocytes) > 1% indicates that a LEFT SHIFT is Present. MCH (RBC) [Entitic mass] 28.5 pg 27.0-32.0 [facility] Nucleated RBC/100 WBC (Bld) [Ratio] 0 % 0-5 [facility] MCHC Auto (RBC) [Mass/Vol]Or dered By: Dr. Shannon on 02-15-2022 MCHC (RBC) [Mass/Vol] 32.0 g/dL 32-36 [facility] No Panel InformationOrdered By: Dr. Shannon on 02-15-2022 Methicillin-Resist S.aureus DNA PCR Negative Negative [facility] Negative Negative [facility] Estimated Creatinine Clearance Calc 53.88 ml/min [facility] Estimated GFR (MDRD) Amer 69 mL/min >60 [facility] Comment on above: GFR Calc Estimated GFR (MDRD) Non-Af Amer 57 mL/min >60 [facility] Comment on above: Non- GFR Calc 28.5 pg 27.0-32.0 [facility] 15.2 % 11.6-14.6 [facility] 49.6 fl 35.1-43.9 [facility] 0.900 % 0.0-0.9 [facility] 0 % 0-5 [facility] 57 mL/min >60 [facility] 69 mL/min >60 [facility] 53.88 ml/min [facility] 25.8 RATIO 10-20 [facility] 25.0 mmol/L 21.0-32.0 [facility] Platelets bldOrdered By: Dr. Shannon on 02-15-2022 Platelets (Bld) [#/Vol] 357 10*3/uL 150-450 [facility] Review by pathologistOrdered By: Dr. Shannon on 02-15-2022 Pathologist review Sohan (Unsp spec) [Interp] Reviewed [facility] Comment on above: Previous reported re sult: Josephine hair Edited by: ROSETTA on 02/15/22:1412Leukocytosis. Normocytic anemia.Clinical correlation necessary.Mc Urias M.D. 02/15/22 AMENDED REPORT 02/15/22 1412 PATH REV previously reported as: Josephine hair Serum or plasma calcium yocasta urement (mass/volume)Ordered By: Dr. Shannon on 02-15-2022 Calcium [Mass/Vol] 9.3 mg/dL 8.5-10.1 [facility] Serum or plasma creatinine m easurement (mass/volume)Ordered By: Dr. Shannon on 02-15-2022 Creatinine [Mass/Vol] 1.32 mg/dL 0.70-1.30 [facility] Comment on above: The validity of the calculated GFR & GFRAA in patients over 70 years has not been determined. Clinical correlation is essential. Serum or plasma urea nitroge n measurement (mass/volume)Ordered By: Dr. Shannon on 02-15-2022 Urea nitrogen [Mass/Vol] 34 mg/dL 7-18 [facility] Thin prep Papanicolaou smear with manual screeningOrdered By: Dr. Shannon on 02-15-2022 Thin prep Papanicolaou smear with manual screening 7 5-15 [facility] Absolute lymphocyte counton 02-14-2022 Lymphocytes Auto (Unsp spec) [#/Vol] 1.28 10*3/uL 0.83-4.51 [facility] Work Phone: Amorphous sediment detection in urine sediment by light microscopyOrdered By: Dr. Walker on 02-14-2022 Amorphous sediment LM Ql (Urine sed) 1+ URATE [facility] Basophil percentageOrdered B y: Dr. Walker on 02-14-2022 Basophil percentage 50-100 SEEN /hpf 0-5 [facility] Basophil percentage 1.0 mmol/L 0.4-2.0 [facility] Lactate [Moles/Vol] 1.0 mmol/L 0.4-2.0 [facility] Basophil percentageon 2021 Basophils/100 WBC (Bld) 0.5 % 0-1 [facility] Work Phone: Chloride [Moles/Vol] 109 mmol/L 98-107 [facility] Work Phone: Eosinophils/100 WBC (Bld) 1.4 % 0-5 [facility] Work Phone: Glucose [Mass/Vol] 217 mg/dL 74-106 [facility] Work Phone: Comment on above: Glucose result great er than or equal to 200 mg/dLsuggests DIABETES MELLITUS per A.D.A. criteria. Neutrophils (Bld) [#/Vol] 7.6 10*3/uL 2.0-7.7 [facility] Work Phone: Neutrophils/100 WBC (Bld) 72.2 % 47-70 [facility] Work Phone: [phone] Potassium [Moles/Vol] 5.1 mmol/L 3.5-5.1 [facility] Work Phone: [phone] Sodium [Moles/Vol] 138 mmol/L 136-145 [facility] Work Phone: [phone] WBC (Bld) [#/Vol] 10.6 10*3/uL 4.4-11.0 [facility] Work Phone: Bilirubin Test strip Ql (U)O rdered By: Dr. Walker on 02-14-2022 Bilirubin Ql (U) Negative Negative [facility] Blood erythrocytes count (nu mber/volume)on 02-14-2022 RBC (Bld) [#/Vol] 3.59 10*6/uL 4.6-6.2 [facility] Work Phone: Blood hemoglobin measurement (mass/volume)on 02-14-2022 Hemoglobin (Bld) [Mass/Vol] 10.1 g/dL 13.0-16.5 [facility] Work Phone: Blood lymphocytes/100 leukoc yteson 02-14-2022 Lymphocytes/100 WBC (Bld) 12.1 % 19-41 [facility] Work Phone: Blood monocytes/100 leukocyt eson 02-14-2022 Monocytes/100 WBC (Bld) 13.2 % 0-10 [facility] Work Phone: Blood platelet mean volumeon 02-14-2022 Platelet mean volume (Bld) [Entitic vol] 10.0 fL 6.2-12.0 [facility] Work Phone: Determination of erythrocyte mean corpuscular volume (MCV)on 02-14-2022 MCV (RBC) [Entitic vol] 89.1 fL 80-94 [facility] Work Phone: Hematocrit Auto (Bld) [Volum e fraction]on 02-14-2022 Hematocrit (Bld) [Volume fraction] 32.0 % 40-54 [facility] Work Phone: Ketones Test strip Ql (U)Ord ered By: Dr. Walker on 02-14-2022 Ketones Ql (U) Negative Negative [facility] Laboratory - Chemistry and C hemistry - challengeon 02-14-2022 CO2 [Moles/Vol] 25.0 mmol/L 21.0-32.0 [facility] Work Phone: Urea nitrogen/Creatinine [Mass ratio] 27.1 mg/mg 10-20 [facility] Work Phone: [phone] Laboratory - Chemistry and C hemistry - challengeOrdered By: Dr. Walker on 02-14-2022 Natriuretic peptide B (Bld) [Mass/Vol] 204.9 pg/mL 0-100 [facility] Laboratory - Hematology and Cell countson 02-14-2022 Erythrocyte distribution width (RBC) [Entitic vol] 50.8 fL 35.1-43.9 [facility] Work Phone: [phone] Erythrocyte distribution width (RBC) [Ratio] 15.5 % 11.6-14.6 [facility] Work Phone: Immature granulocytes/100 WBC (Bld) 0.600 % 0.0-0.9 [facility] Work Phone: Comment on above: IG% - Immature Granu locytes (promyelocytes, myelocytes and metamyelocytes) > 1% indicates that a LEFT SHIFT is Present. MCH (RBC) [Entitic mass] 28.1 pg 27.0-32.0 [facility] Work Phone: Nucleated RBC/100 WBC (Bld) [Ratio] 0 % 0-5 [facility] Work Phone: MCHC Auto (RBC) [Mass/Vol]on 02-14-2022 MCHC (RBC) [Mass/Vol] 31.6 g/dL 32-36 [facility] Work Phone: Mucus LM Ql (Urine sed)Order ed By: Dr. Walker on 02-14-2022 Mucus Ql (Urine sed) 0 SEEN /hpf [facility] Nitrite Test strip Ql (U)Ord ered By: Dr. Walker on 02-14-2022 Nitrite Ql (U) Negative Negative [facility] No Panel InformationOrdered By: Dr. Walker on 02-14-2022 D-Dimer Quantitative (PE/DVT) 1.88 FEU/ug/m 0.27-0.49 [facility] Comment on above: D-Dimer ELEVATED (>0 .49): Additional studies and clinicalassessments are indicated to conclude diagnosis of:Deep Vein Thrombosis (DVT) or Pulmonary Embolism (PE)CRITICAL VALUE VERIFIED. [facility]02/14/22 3478 Claire Nair.RESULTS READ BACK BY SAME . Troponin I High Sensitivity 12 pg/mL 3.0-78.0 [facility] Comment on above: Please Note: New Nicole t Units and Gender Specific Reference Ranges. For more information see Policy Stat Procedure [place] High Sensitivity Troponin (TNIH) and attachments. 1.88 FEU/ug/m 0.27-0.49 [facility] 12 pg/mL 3.0-78.0 [facility] 204.9 pg/mL 0-100 [facility] No Panel Informationon 02-14 Estimated Creatinine Clearance Calc 49.39 ml/min [facility] Work Phone: Estimated GFR (MDRD) Amer 62 mL/min >60 [facility] Work Phone: Comment on above: GFR Calc Estimated GFR (MDRD) Non-Af Amer 51 mL/min >60 [facility] Work Phone: Comment on above: Non- GFR Calc Platelets bldon 02-14-2022 Platelets (Bld) [#/Vol] 295 10*3/uL 150-450 [facility] Work Phone: Protein Test strip Ql (U)Ord ered By: Dr. Walker on 02-14-2022 Protein Ql (U) 30 mg/dl Negative [facility] Serum or plasma calcium yocasta urement (mass/volume)on 02-14-2022 Calcium [Mass/Vol] 9.3 mg/dL 8.5-10.1 [facility] Work Phone: Serum or plasma creatinine m easurement (mass/volume)on 02-14-2022 Creatinine [Mass/Vol] 1.44 mg/dL 0.70-1.30 [facility] Work Phone: Comment on above: The validity of the calculated GFR & GFRAA in patients over 70 years has not been determined. Clinical correlation is essential. Serum or plasma urea nitroge n measurement (mass/volume)on 02-14-2022 Urea nitrogen [Mass/Vol] 39 mg/dL 7-18 [facility] Work Phone: [phone] Squamous epithelial cells de tection in urine sediment by light microscopyOrdered By: Dr. Walker on 02-14-2022 Epithelial cells.squamous LM Ql (Urine sed) 0-5 SEEN /hpf 0-5 [facility] Thin prep Papanicolaou smear with manual screeningon 02-14-2022 Thin prep Papanicolaou smear with manual screening 4 5-15 [facility] Work Phone: [phone] Urine blood detectionOrdered By: Dr. Walker on 02-14-2022 RBC Ql (U) 25 /ul Negative [facility] RBC Ql (U) 5-10 SEEN /hpf 0-5 [facility] Urine clarityOrdered By: Dr. Walker on 02-14-2022 Clarity (U) Sl. Cloudy Clear [facility] Urine color determinationOrd ered By: Dr. Walker on 02-14-2022 Color (U) Yellow Yellow [facility] Urine glucose detectionOrder ed By: Dr. Walker on 02-14-2022 Glucose Ql (U) Normal mg/dl Normal [facility] Urine leukocyte esterase det ection by dipstickOrdered By: Dr. Walker on 02-14-2022 Leukocyte esterase Test strip Ql (U) 500 /ul Negative [facility] Urine pHOrdered By: Dr. Cindy ryan on 02-14-2022 pH (U) 5.0 [pH] 5.0 - 8.0 [facility] Urine sediment bacteria coun t by microscopy (number/high power field)Ordered By: Dr. Walker on 02-14-2022 Bacteria LM.HPF (Urine sed) [#/Area] RARE /hpf None Seen [facility] Urine specific gravity measu rementOrdered By: Dr. Walker on 02-14-2022 Specific gravity (U) [Rel density] 1.015 1.002-1.030 [facility] Urobilinogen Auto test strip Ql (U)Ordered By: Dr. Walker on 02-14-2022 Urobilinogen Ql (U) Normal mg/dl Normal [facility] Basophil percentageOrdered B y: DANNIELLE PIÑA on 02-06-2022 Basophils (Bld) [#/Vol] 9.4 10*3/uL 4.4-11.0 [facility] WBC (Bld) [#/Vol] 9.4 10*3/uL 4.4-11.0 [facility] Blood erythrocytes count (nu mber/volume)Ordered By: DANNIELLE PIÑA on 02-06-2022 RBC (Bld) [#/Vol] 3.50 10*6/uL 4.6-6.2 [facility] Blood hemoglobin measurement (mass/volume)Ordered By: DANNIELLE PIÑA on 02-06-2022 Hemoglobin (Bld) [Mass/Vol] 10.0 g/dL 13.0-16.5 [facility] Blood platelet mean volumeOr dered By: DANNIELLE PIÑA on 02-06-2022 Platelet mean volume (Bld) [Entitic vol] 10.9 fL 6.2-12.0 [facility] Determination of erythrocyte mean corpuscular volume (MCV)Ordered By: DANNIELLE PIÑA on 02-06-2022 MCV (RBC) [Entitic vol] 89.7 fL 80-94 [facility] Hematocrit Auto (Bld) [Volum e fraction]Ordered By: DANNIELLE PIÑA on 02-06-2022 Hematocrit (Bld) [Volume fraction] 31.4 % 40-54 [facility] - Hematology and Cell countsOrdered By: DANNIELLE PIÑA on 02-06-2022 Erythrocyte distribution width (RBC) [Entitic vol] 52.0 fL 35.1-43.9 [facility] Erythrocyte distribution width (RBC) [Ratio] 16.0 % 11.6-14.6 [facility] MCH (RBC) [Entitic mass] 28.6 pg 27.0-32.0 [facility] MCHC Auto (RBC) [Mass/Vol]Or dered By: DANNIELLE PIÑA on 02-06-2022 MCHC (RBC) [Mass/Vol] 31.8 g/dL 32-36 [facility] No Panel InformationOrdered By: DANNIELLE PIÑA on 02-06-2022 28.6 pg 27.0-32.0 [facility] 16.0 % 11.6-14.6 [facility] 52.0 fl 35.1-43.9 [facility] Platelets bldOrdered By: EDWARD NEWSOME on 02-06-2022 Platelets (Bld) [#/Vol] 325 10*3/uL 150-450 [facility] Absolute lymphocyte countOrd ered By: Dr. Zapata on 02-05-2022 Lymphocytes Auto (Unsp spec) [#/Vol] 3.30 10*3/uL 0.83-4.51 [facility] Basophil percentageOrdered B y: Dr. Zapata on 02-05-2022 Basophil percentage 196 mg/dL 74-106 [facility] Basophil percentage 6.8 g/dL 6.4-8.2 [facility] Basophil percentage 0.50 mg/dL 0.20-1.00 [facility] Basophil percentage 141 mmol/L 136-145 [facility] Basophil percentage 4.3 mmol/L 3.5-5.1 [facility] Basophil percentage 109 mmol/L 98-107 [facility] Basophils (Bld) [#/Vol] 11.4 10*3/uL 4.4-11.0 [facility] Basophils (Bld) [#/Vol] 5.4 10*3/uL 2.0-7.7 [facility] Basophils/100 WBC (Bld) 0.6 % 0-1 [facility] Basophils/100 WBC (Bld) 47.0 % 47-70 [facility] Basophils/100 WBC (Bld) 11.9 % 0-5 [facility] Basophil percentageon 2021 Bilirubin [Mass/Vol] 0.50 mg/dL 0.20-1.00 [facility] Work Phone: Comment on above: For patients on eltr ombopag therapy, use of Dimension [place] TBIL is not recommended. Chloride [Moles/Vol] 109 mmol/L 98-107 [facility] Work Phone: Eosinophils/100 WBC (Bld) 11.9 % 0-5 [facility] Work Phone: Glucose [Mass/Vol] 196 mg/dL 74-106 [facility] Work Phone: Comment on above: Fasting Glucose resu lt greater than or equal to 126 mg/dL suggests DIABETES MELLITUS per A.D.A. criteria. Neutrophils (Bld) [#/Vol] 5.4 10*3/uL 2.0-7.7 [facility] Work Phone: Neutrophils/100 WBC (Bld) 47.0 % 47-70 [facility] Work Phone: Potassium [Moles/Vol] 4.3 mmol/L 3.5-5.1 [facility] Work Phone: Protein [Mass/Vol] 6.8 g/dL 6.4-8.2 [facility] Work Phone: Sodium [Moles/Vol] 141 mmol/L 136-145 [facility] Work Phone: WBC (Bld) [#/Vol] 11.4 10*3/uL 4.4-11.0 [facility] Work Phone: Blood erythrocytes count (nu mber/volume)Ordered By: Dr. Zapata on 02-05-2022 RBC (Bld) [#/Vol] 3.87 10*6/uL 4.6-6.2 [facility] Blood hemoglobin measurement (mass/volume)Ordered By: Dr. Zapata on 02-05-2022 Hemoglobin (Bld) [Mass/Vol] 10.8 g/dL 13.0-16.5 [facility] Blood lymphocytes/100 leukoc ytesOrdered By: Dr. Zapata on 02-05-2022 Lymphocytes/100 WBC (Bld) 28.9 % 19-41 [facility] Blood monocytes/100 leukocyt esOrdered By: Dr. Zapata on 02-05-2022 Monocytes/100 WBC (Bld) 10.5 % 0-10 [facility] Blood platelet mean volumeOr dered By: Dr. Zapata on 02-05-2022 Platelet mean volume (Bld) [Entitic vol] 9.8 fL 6.2-12.0 [facility] Determination of erythrocyte mean corpuscular volume (MCV)Ordered By: Dr. Zapata on 02-05-2022 MCV (RBC) [Entitic vol] 90.2 fL 80-94 [facility] Hematocrit Auto (Bld) [Volum e fraction]Ordered By: Dr. Zapata on 02-05-2022 Hematocrit (Bld) [Volume fraction] 34.9 % 40-54 [facility] Iron measurement (mass/mass) Ordered By: Dr. Zapata on 02-05-2022 Iron (Unsp spec) [Mass/Mass] 88 ug/dL 65-175 [facility] Laboratory - Chemistry and C hemistry - challengeon 02-05-2022 ALP [Catalytic activity/Vol] 92 U/L 45-117 [facility] Work Phone: ALT [Catalytic activity/Vol] 18 U/L 16-61 [facility] Work Phone: CO2 [Moles/Vol] 27.0 mmol/L 21.0-32.0 [facility] Work Phone: Globulin (S) [Mass/Vol] 3.3 g/dL 2.2-4.2 [facility] Work Phone: Urea nitrogen/Creatinine [Mass ratio] 23.9 mg/mg 10-20 [facility] Work Phone: Laboratory - Chemistry and C hemistry - challengeOrdered By: Dr. Zapata on 02-05-2022 Cobalamin (Vitamin B12) [Mass/Vol] 941 pg/mL 211-911 [facility] - Hematology and Cell countson 02-05-2022 Erythrocyte distribution width (RBC) [Entitic vol] 53.1 fL 35.1-43.9 [facility] Work Phone: Erythrocyte distribution width (RBC) [Ratio] 16.2 % 11.6-14.6 [facility] Work Phone: [phone] Immature granulocytes/100 WBC (Bld) 1.100 % 0.0-0.9 [facility] Work Phone: [phone] Comment on above: IG% - Immature Granu locytes (promyelocytes, myelocytes and metamyelocytes) > 1% indicates that a LEFT SHIFT is Present. MCH (RBC) [Entitic mass] 27.9 pg 27.0-32.0 [facility] Work Phone: Nucleated RBC/100 WBC (Bld) [Ratio] 0 % 0-5 [facility] Work Phone: MCHC Auto (RBC) [Mass/Vol]Or dered By: Dr. Zapata on 02-05-2022 MCHC (RBC) [Mass/Vol] 30.9 g/dL 32-36 [facility] No Panel Informationon 02-05 Estimated Creatinine Clearance Calc 53.07 ml/min [facility] Work Phone: Estimated GFR (MDRD) Amer 67 mL/min >60 [facility] Work Phone: Comment on above: GFR Calc Estimated GFR (MDRD) Non-Af Amer 56 mL/min >60 [facility] Work Phone: Comment on above: Non- GFR Calc Total Iron Binding Capacity 246 ug/dL 250-450 [facility] Work Phone: No Panel InformationOrdered By: Dr. Zapata on 02-05-2022 27.9 pg 27.0-32.0 [facility] 16.2 % 11.6-14.6 [facility] 53.1 fl 35.1-43.9 [facility] 1.100 % 0.0-0.9 [facility] 0 % 0-5 [facility] 56 mL/min >60 [facility] 67 mL/min >60 [facility] 53.07 ml/min [facility] 23.9 RATIO 10-20 [facility] 3.3 g/dL 2.2-4.2 [facility] 92 U/L 45-117 [facility] 18 U/L 16-61 [facility] 27.0 mmol/L 21.0-32.0 [facility] 941 pg/mL 211-911 [facility] 246 ug/dL 250-450 [facility] Platelets bldOrdered By: Dr. Zapata on 02-05-2022 Platelets (Bld) [#/Vol] 355 10*3/uL 150-450 [facility] Serum or plasma albumin yocasta urement (mass/volume)Ordered By: Dr. Zapata on 02-05-2022 Albumin [Mass/Vol] 3.5 g/dL 3.2-5.0 [facility] Serum or plasma albumin/glob ulin mass ratioOrdered By: Dr. Zapata on 02-05-2022 Albumin/Globulin [Mass ratio] 1.1 {ratio} 0.9-2.4 [facility] Serum or plasma calcium yocasta urement (mass/volume)Ordered By: Dr. Zapata on 02-05-2022 Calcium [Mass/Vol] 9.5 mg/dL 8.5-10.1 [facility] Serum or plasma creatinine m easurement (mass/volume)Ordered By: Dr. Zapata on 02-05-2022 Creatinine [Mass/Vol] 1.34 mg/dL 0.70-1.30 [facility] Comment on above: The validity of the calculated GFR & GFRAA in patients over 70 years has not been determined. Clinical correlation is essential. Serum or plasma ferritin vasquez surement (mass/volume)Ordered By: Dr. Zapata on 02-05-2022 Ferritin [Mass/Vol] 631 ng/mL 26-388 [facility] Serum or plasma folate measu rement (mass/volume)Ordered By: Dr. Zapata on 02-05-2022 Folate [Mass/Vol] 8.40 ng/mL 3.1-55.4 [facility] Serum or plasma iron saturat ion measurement (mass fraction)Ordered By: Dr. Zapata on 02-05-2022 Iron saturation [Mass fraction] 35.8 % 15.0-55.0 [facility] Serum or plasma urea nitroge n measurement (mass/volume)Ordered By: Dr. Zapata on 02-05-2022 Urea nitrogen [Mass/Vol] 32 mg/dL 7-18 [facility] Thin prep Papanicolaou smear with manual screeningOrdered By: Dr. Zapata on 02-05-2022 Thin prep Papanicolaou smear with manual screening 10 U/L 15-37 [facility] Thin prep Papanicolaou smear with manual screening 5 5-15 [facility] Thin prep Papanicolaou smear with manual screening 195 U/L 87-241 [facility] Basophil percentageOrdered B y: Khai Galeana on 01-15-2022 Basophils (Bld) [#/Vol] 8.3 10*3/uL 4.4-11.0 [facility] Basophil percentageon 2021 WBC (Bld) [#/Vol] 8.3 10*3/uL 4.4-11.0 [facility] Work Phone: Blood erythrocytes count (nu mber/volume)Ordered By: Khai Galeana on 01-15-2022 RBC (Bld) [#/Vol] 3.34 10*6/uL 4.6-6.2 [facility] Blood hemoglobin measurement (mass/volume)Ordered By: Khai Galeana on 01-15-2022 Hemoglobin (Bld) [Mass/Vol] 9.3 g/dL 13.0-16.5 [facility] Blood platelet mean volumeOr dered By: Khai Galeana on 01-15-2022 Platelet mean volume (Bld) [Entitic vol] 10.2 fL 6.2-12.0 [facility] Determination of erythrocyte mean corpuscular volume (MCV)Ordered By: Khai Galeana on 01-15-2022 MCV (RBC) [Entitic vol] 88.3 fL 80-94 [facility] Hematocrit Auto (Bld) [Volum e fraction]Ordered By: Khai Galeana on 01-15-2022 Hematocrit (Bld) [Volume fraction] 29.5 % 40-54 [facility] - Hematology and Cell countson 01-15-2022 Erythrocyte distribution width (RBC) [Entitic vol] 55.7 fL 35.1-43.9 [facility] Work Phone: Erythrocyte distribution width (RBC) [Ratio] 17.2 % 11.6-14.6 [facility] Work Phone: MCH (RBC) [Entitic mass] 27.8 pg 27.0-32.0 [facility] Work Phone: MCHC Auto (RBC) [Mass/Vol]Or dered By: Khai Galeana on 01-15-2022 MCHC (RBC) [Mass/Vol] 31.5 g/dL 32-36 [facility] No Panel InformationOrdered By: Khai Galeana on 01-15-2022 27.8 pg 27.0-32.0 [facility] 17.2 % 11.6-14.6 [facility] 55.7 fl 35.1-43.9 [facility] Platelets bldOrdered By: Wagner Galeana on 01-15-2022 Platelets (Bld) [#/Vol] 334 10*3/uL 150-450 [facility] Absolute lymphocyte counton 12-26-2021 Lymphocytes Auto (Unsp spec) [#/Vol] 1.61 10*3/uL 0.83-4.51 [facility] Work Phone: Basophil percentageon 2021 Basophils/100 WBC (Bld) 0.7 % 0-1 [facility] Work Phone: Bilirubin [Mass/Vol] 0.40 mg/dL 0.20-1.00 [facility] Work Phone: Comment on above: For patients on eltr ombopag therapy, use of Dimension [place] TBIL is not recommended. Chloride [Moles/Vol] 108 mmol/L 98-107 [facility] Work Phone: Eosinophils/100 WBC (Bld) 8.3 % 0-5 [facility] Work Phone: Glucose [Mass/Vol] 196 mg/dL 74-106 [facility] Work Phone: Comment on above: Fasting Glucose resu lt greater than or equal to 126 mg/dL suggests DIABETES MELLITUS per A.D.A. criteria. Neutrophils (Bld) [#/Vol] 5.3 10*3/uL 2.0-7.7 [facility] Work Phone: Neutrophils/100 WBC (Bld) 62.0 % 47-70 [facility] Work Phone: Potassium [Moles/Vol] 4.4 mmol/L 3.5-5.1 [facility] Work Phone: Protein [Mass/Vol] 5.9 g/dL 6.4-8.2 [facility] Work Phone: Sodium [Moles/Vol] 139 mmol/L 136-145 [facility] Work Phone: WBC (Bld) [#/Vol] 8.5 10*3/uL 4.4-11.0 [facility] Work Phone: Blood erythrocytes count (nu mber/volume)on 12-26-2021 RBC (Bld) [#/Vol] 2.95 10*6/uL 4.6-6.2 [facility] Work Phone: Blood hemoglobin measurement (mass/volume)on 12-26-2021 Hemoglobin (Bld) [Mass/Vol] 8.4 g/dL 13.0-16.5 [facility] Work Phone: Blood lymphocytes/100 leukoc yteson 12-26-2021 Lymphocytes/100 WBC (Bld) 19.0 % 19-41 [facility] Work Phone: Blood monocytes/100 leukocyt eson 12-26-2021 Monocytes/100 WBC (Bld) 8.8 % 0-10 [facility] Work Phone: Blood platelet mean volumeon 12-26-2021 Platelet mean volume (Bld) [Entitic vol] 10.3 fL 6.2-12.0 [facility] Work Phone: Determination of erythrocyte mean corpuscular volume (MCV)on 12-26-2021 MCV (RBC) [Entitic vol] 89.2 fL 80-94 [facility] Work Phone: Hematocrit Auto (Bld) [Volum e fraction]on 12-26-2021 Hematocrit (Bld) [Volume fraction] 26.3 % 40-54 [facility] Work Phone: Hemoglobin in reticulocytes (mass per reticulocyte)Ordered By: Dr. Zapata on 12-26-2021 Hemoglobin (Reticulocytes) [Entitic mass] 28.7 pg 30-35 [facility] Iron measurement (mass/mass) on 12-26-2021 Iron (Unsp spec) [Mass/Mass] 54 ug/dL 65-175 [facility] Work Phone: Laboratory - Chemistry and C hemistry - challengeon 12-26-2021 ALP [Catalytic activity/Vol] 92 U/L 45-117 [facility] Work Phone: ALT [Catalytic activity/Vol] 24 U/L 16-61 [facility] Work Phone: CO2 [Moles/Vol] 25.0 mmol/L 21.0-32.0 [facility] Work Phone: [phone] Globulin (S) [Mass/Vol] 3.1 g/dL 2.2-4.2 [facility] Work Phone: [phone] Urea nitrogen/Creatinine [Mass ratio] 16.9 mg/mg 10-20 [facility] Work Phone: [phone] Laboratory - Hematology and Cell countson 12-26-2021 Erythrocyte distribution width (RBC) [Entitic vol] 59.1 fL 35.1-43.9 [facility] Work Phone: [phone] Erythrocyte distribution width (RBC) [Ratio] 18.3 % 11.6-14.6 [facility] Work Phone: [phone] Immature granulocytes/100 WBC (Bld) 1.200 % 0.0-0.9 [facility] Work Phone: [phone] Comment on above: IG% - Immature Granu locytes (promyelocytes, myelocytes and metamyelocytes) > 1% indicates that a LEFT SHIFT is Present. MCH (RBC) [Entitic mass] 28.5 pg 27.0-32.0 [facility] Work Phone: [phone] Nucleated RBC/100 WBC (Bld) [Ratio] 0 % 0-5 [facility] Work Phone: [phone] MCHC Auto (RBC) [Mass/Vol]on 12-26-2021 MCHC (RBC) [Mass/Vol] 31.9 g/dL 32-36 [facility] Work Phone: [phone] No Panel Informationon 12-26 Estimated GFR (MDRD) Amer 78 mL/min >60 [facility] Work Phone: [phone] Comment on above: GFR Calc Estimated GFR (MDRD) Non-Af Amer 64 mL/min >60 [facility] Work Phone: [phone] Comment on above: Non- GFR Calc Immature Reticulocyte Fraction 31.90 % 3.00-15.90 [facility] Work Phone: [phone] Reticulocyte Count 3.23 % 0.5-1.5 [facility] Work Phone: Total Iron Binding Capacity 235 ug/dL 250-450 [facility] Work Phone: No Panel InformationOrdered By: Dr. Zapata on 12-26-2021 Immature Platelet Fraction 28.7 % 1.0-7.9 [facility] Comment on above: Low PLT + Low IPF joyce ggest a bone marrow production disorderLow PLT + high IPF suggests peripheral destruction(e.g.ITP, TTP, HIT, DIC, autoimmune) or bone marrow recoveryTrending of serial IPF measurements is recommended when evaluating for bone marrow responesValue above normal range indicates an increase in RBC cellular response from bone marrow. 3.23 % 0.5-1.5 [facility] 31.90 % 3.00-15.90 [facility] 28.7 % 1.0-7.9 [facility] Platelets bldon 12-26-2021 Platelets (Bld) [#/Vol] 221 10*3/uL 150-450 [facility] Work Phone: Serum or plasma albumin yocasta urement (mass/volume)on 12-26-2021 Albumin [Mass/Vol] 2.8 g/dL 3.2-5.0 [facility] Work Phone: Serum or plasma albumin/glob ulin mass ratioon 12-26-2021 Albumin/Globulin [Mass ratio] 0.9 {ratio} 0.9-2.4 [facility] Work Phone: Serum or plasma calcium yocasta urement (mass/volume)on 12-26-2021 Calcium [Mass/Vol] 8.4 mg/dL 8.5-10.1 [facility] Work Phone: Serum or plasma creatinine m easurement (mass/volume)on 12-26-2021 Creatinine [Mass/Vol] 1.18 mg/dL 0.70-1.30 [facility] Work Phone: Comment on above: The validity of the calculated GFR & GFRAA in patients over 70 years has not been determined. Clinical correlation is essential. Serum or plasma ferritin vasquez surement (mass/volume)on 12-26-2021 Ferritin [Mass/Vol] 160 ng/mL 26-388 [facility] Work Phone: Serum or plasma iron saturat ion measurement (mass fraction)on 12-26-2021 Iron saturation [Mass fraction] 23.0 % 15.0-55.0 [facility] Work Phone: Serum or plasma urea nitroge n measurement (mass/volume)on 12-26-2021 Urea nitrogen [Mass/Vol] 20 mg/dL 7-18 [facility] Work Phone: Thin prep Papanicolaou smear with manual screeningon 12-26-2021 Thin prep Papanicolaou smear with manual screening 13 U/L 15-37 [facility] Work Phone: Thin prep Papanicolaou smear with manual screening 6 5-15 [facility] Work Phone: Thin prep Papanicolaou smear with manual screening 213 U/L 87-241 [facility] Work Phone: Absolute lymphocyte countOrd ered By: Khai Galeana on 12-21-2021 Lymphocytes Auto (Unsp spec) [#/Vol] 1.52 10*3/uL 0.83-4.51 [facility] Basophil percentageOrdered B y: Khai Galeana on 12-21-2021 Basophils (Bld) [#/Vol] 10.1 10*3/uL 4.4-11.0 [facility] Basophils (Bld) [#/Vol] 6.5 10*3/uL 2.0-7.7 [facility] Basophils/100 WBC (Bld) 0.4 % 0-1 [facility] Basophils/100 WBC (Bld) 64.3 % 47-70 [facility] Basophils/100 WBC (Bld) 8.4 % 0-5 [facility] Basophil percentageon 2021 Eosinophils/100 WBC (Bld) 8.4 % 0-5 [facility] Work Phone: Neutrophils (Bld) [#/Vol] 6.5 10*3/uL 2.0-7.7 [facility] Work Phone: Neutrophils/100 WBC (Bld) 64.3 % 47-70 [facility] Work Phone: WBC (Bld) [#/Vol] 10.1 10*3/uL 4.4-11.0 [facility] Work Phone: Blood erythrocytes count (nu mber/volume)Ordered By: Khai Galeana on 12-21-2021 RBC (Bld) [#/Vol] 3.50 10*6/uL 4.6-6.2 [facility] Blood hemoglobin measurement (mass/volume)Ordered By: Khai Galeana on 12-21-2021 Hemoglobin (Bld) [Mass/Vol] 9.8 g/dL 13.0-16.5 [facility] Blood lymphocytes/100 leukoc ytesOrdered By: Khai Galeana on 12-21-2021 Lymphocytes/100 WBC (Bld) 15.1 % 19-41 [facility] Blood monocytes/100 leukocyt esOrdered By: Khai Galeana on 12-21-2021 Monocytes/100 WBC (Bld) 9.6 % 0-10 [facility] Blood platelet mean volumeOr dered By: Khai Galeana on 12-21-2021 Platelet mean volume (Bld) [Entitic vol] 10.8 fL 6.2-12.0 [facility] Determination of erythrocyte mean corpuscular volume (MCV)Ordered By: Khai Galeana on 12-21-2021 MCV (RBC) [Entitic vol] 90.0 fL 80-94 [facility] Hematocrit Auto (Bld) [Volum e fraction]Ordered By: Khai Galeana on 12-21-2021 Hematocrit (Bld) [Volume fraction] 31.5 % 40-54 [facility] Laboratory - Hematology and Cell countson 12-21-2021 Erythrocyte distribution width (RBC) [Entitic vol] 63.5 fL 35.1-43.9 [facility] Work Phone: Erythrocyte distribution width (RBC) [Ratio] 19.1 % 11.6-14.6 [facility] Work Phone: Immature granulocytes/100 WBC (Bld) 2.200 % 0.0-0.9 [facility] Work Phone: Comment on above: IG% - Immature Granu locytes (promyelocytes, myelocytes and metamyelocytes) > 1% indicates that a LEFT SHIFT is Present. MCH (RBC) [Entitic mass] 28.0 pg 27.0-32.0 [facility] Work Phone: Nucleated RBC/100 WBC (Bld) [Ratio] 0 % 0-5 [facility] Work Phone: MCHC Auto (RBC) [Mass/Vol]Or dered By: Khai Galeana on 12-21-2021 MCHC (RBC) [Mass/Vol] 31.1 g/dL 32-36 [facility] No Panel InformationOrdered By: Khai Galeana on 12-21-2021 28.0 pg 27.0-32.0 [facility] 19.1 % 11.6-14.6 [facility] 63.5 fl 35.1-43.9 [facility] 2.200 % 0.0-0.9 [facility] 0 % 0-5 [facility] Platelets bldOrdered By: Wagner Galeana on 12-21-2021 Platelets (Bld) [#/Vol] 242 10*3/uL 150-450 [facility] No Panel InformationOrdered By: Dr. Joy on 12-14-2021 No growth in 5 days. [facility] Absolute lymphocyte countOrd ered By: Dr. Rosas on 12-11-2021 Lymphocytes Auto (Unsp spec) [#/Vol] 0.92 10*3/uL 0.83-4.51 [facility] Basophil percentageOrdered B y: Dr. Rosas on 12-11-2021 Basophil percentage 324 mg/dL 74-106 [facility] Basophil percentage 5.2 g/dL 6.4-8.2 [facility] Basophil percentage 0.30 mg/dL 0.20-1.00 [facility] Basophil percentage 141 mmol/L 136-145 [facility] Basophil percentage 5.0 mmol/L 3.5-5.1 [facility] Basophil percentage 109 mmol/L 98-107 [facility] Basophils (Bld) [#/Vol] 8.9 10*3/uL 4.4-11.0 [facility] Basophils (Bld) [#/Vol] 7.4 10*3/uL 2.0-7.7 [facility] Basophils/100 WBC (Bld) 0.1 % 0-1 [facility] Basophils/100 WBC (Bld) 83.3 % 47-70 [facility] Basophils/100 WBC (Bld) 0.0 % 0-5 [facility] Basophil percentageon 2021 Bilirubin [Mass/Vol] 0.30 mg/dL 0.20-1.00 [facility] Work Phone: Comment on above: For patients on eltr ombopag therapy, use of Dimension [place] TBIL is not recommended. Chloride [Moles/Vol] 109 mmol/L 98-107 [facility] Work Phone: Eosinophils/100 WBC (Bld) 0.0 % 0-5 [facility] Work Phone: Glucose [Mass/Vol] 324 mg/dL 74-106 [facility] Work Phone: Comment on above: Glucose result great er than or equal to 200 mg/dLsuggests DIABETES MELLITUS per A.D.A. criteria. Neutrophils (Bld) [#/Vol] 7.4 10*3/uL 2.0-7.7 [facility] Work Phone: Neutrophils/100 WBC (Bld) 83.3 % 47-70 [facility] Work Phone: Potassium [Moles/Vol] 5.0 mmol/L 3.5-5.1 [facility] Work Phone: Protein [Mass/Vol] 5.2 g/dL 6.4-8.2 [facility] Work Phone: Sodium [Moles/Vol] 141 mmol/L 136-145 [facility] Work Phone: WBC (Bld) [#/Vol] 8.9 10*3/uL 4.4-11.0 [facility] Work Phone: Blood erythrocytes count (nu mber/volume)Ordered By: Dr. Rosas on 12-11-2021 RBC (Bld) [#/Vol] 2.86 10*6/uL 4.6-6.2 [facility] Blood hemoglobin measurement (mass/volume)Ordered By: Dr. Rosas on 12-11-2021 Hemoglobin (Bld) [Mass/Vol] 8.1 g/dL 13.0-16.5 [facility] Blood lymphocytes/100 leukoc ytesOrdered By: Dr. Rosas on 12-11-2021 Lymphocytes/100 WBC (Bld) 10.4 % 19-41 [facility] Blood monocytes/100 leukocyt esOrdered By: Dr. Rosas on 12-11-2021 Monocytes/100 WBC (Bld) 4.7 % 0-10 [facility] Blood platelet mean volumeOr dered By: Dr. Rosas on 12-11-2021 Platelet mean volume (Bld) [Entitic vol] 11.2 fL 6.2-12.0 [facility] Determination of erythrocyte mean corpuscular volume (MCV)Ordered By: Dr. Rosas on 12-11-2021 MCV (RBC) [Entitic vol] 88.5 fL 80-94 [facility] Glucose Glucometer (BldC) [M ass/Vol]Ordered By: Dr. Ortiz on 12-11-2021 Glucose [Mass/Vol] 283 mg/dL 74-106 [facility] Comment on above: MANAGEMENT OF PATIEN T CARE PER NURSING PROTOCOL Hematocrit Auto (Bld) [Volum e fraction]Ordered By: Dr. Rosas on 12-11-2021 Hematocrit (Bld) [Volume fraction] 25.3 % 40-54 [facility] Laboratory - Chemistry and C hemistry - challengeon 12-11-2021 ALP [Catalytic activity/Vol] 66 U/L 45-117 [facility] Work Phone: ALT [Catalytic activity/Vol] 20 U/L 16-61 [facility] Work Phone: [phone] CO2 [Moles/Vol] 27.0 mmol/L 21.0-32.0 [facility] Work Phone: [phone] Globulin (S) [Mass/Vol] 2.7 g/dL 2.2-4.2 [facility] Work Phone: [phone] Urea nitrogen/Creatinine [Mass ratio] 30.4 mg/mg 10-20 [facility] Work Phone: [phone] Laboratory - Hematology and Cell countson 12-11-2021 Erythrocyte distribution width (RBC) [Entitic vol] 56.6 fL 35.1-43.9 [facility] Work Phone: [phone] Erythrocyte distribution width (RBC) [Ratio] 17.5 % 11.6-14.6 [facility] Work Phone: [phone] Immature granulocytes/100 WBC (Bld) 1.500 % 0.0-0.9 [facility] Work Phone: [phone] Comment on above: IG% - Immature Granu locytes (promyelocytes, myelocytes and metamyelocytes) > 1% indicates that a LEFT SHIFT is Present. MCH (RBC) [Entitic mass] 28.3 pg 27.0-32.0 [facility] Work Phone: [phone] Nucleated RBC/100 WBC (Bld) [Ratio] 0.2 % 0-5 [facility] Work Phone: [phone] MCHC Auto (RBC) [Mass/Vol]Or dered By: Dr. Rosas on 12-11-2021 MCHC (RBC) [Mass/Vol] 32.0 g/dL 32-36 [facility] No Panel Informationon 12-11 Estimated Creatinine Clearance Calc 61.84 ml/min [facility] Work Phone: [phone] Estimated GFR (MDRD) Amer 80 mL/min >60 [facility] Work Phone: [phone] Comment on above: GFR Calc Estimated GFR (MDRD) Non-Af Amer 66 mL/min >60 [facility] Work Phone: [phone] Comment on above: Non- GFR Calc No Panel InformationOrdered By: Dr. Rosas on 12-11-2021 28.3 pg 27.0-32.0 [facility] 17.5 % 11.6-14.6 [facility] 56.6 fl 35.1-43.9 [facility] 1.500 % 0.0-0.9 [facility] 0.2 % 0-5 [facility] 66 mL/min >60 [facility] 80 mL/min >60 [facility] 61.84 ml/min [facility] 30.4 RATIO 10-20 [facility] 2.7 g/dL 2.2-4.2 [facility] 66 U/L 45-117 [facility] 20 U/L 16-61 [facility] 27.0 mmol/L 21.0-32.0 [facility] Platelets bldOrdered By: Dr. Rosas on 12-11-2021 Platelets (Bld) [#/Vol] 239 10*3/uL 150-450 [facility] Serum or plasma albumin yocasta urement (mass/volume)Ordered By: Dr. Rosas on 12-11-2021 Albumin [Mass/Vol] 2.5 g/dL 3.2-5.0 [facility] Serum or plasma albumin/glob ulin mass ratioOrdered By: Dr. Rosas on 12-11-2021 Albumin/Globulin [Mass ratio] 0.9 {ratio} 0.9-2.4 [facility] Serum or plasma calcium yocasta urement (mass/volume)Ordered By: Dr. Rosas on 12-11-2021 Calcium [Mass/Vol] 8.4 mg/dL 8.5-10.1 [facility] Serum or plasma creatinine m easurement (mass/volume)Ordered By: Dr. Rosas on 12-11-2021 Creatinine [Mass/Vol] 1.15 mg/dL 0.70-1.30 [facility] Comment on above: The validity of the calculated GFR & GFRAA in patients over 70 years has not been determined. Clinical correlation is essential. Serum or plasma urea nitroge n measurement (mass/volume)Ordered By: Dr. Rosas on 12-11-2021 Urea nitrogen [Mass/Vol] 35 mg/dL 7-18 [facility] Thin prep Papanicolaou smear with manual screeningOrdered By: Dr. Rosas on 12-11-2021 Thin prep Papanicolaou smear with manual screening 12 U/L 15-37 [facility] Thin prep Papanicolaou smear with manual screening 5 5-15 [facility] INR in Blood by Coagulation assayOrdered By: Dr. Chen on 12-10-2021 INR Coag (Bld) [Relative time] 1.2 {INR} [facility] Laboratory - Coagulationon 1 aPTT Coag (Bld) [Time] 24.6 s 24.1-36.2 [facility] Work Phone: PT Coag (PPP) [Time] 14.8 s 11.7-14.9 [facility] Work Phone: Microbial respiratory cultur eOrdered By: Dr. Joy on 12-10-2021 Bacteria identified Respiratory culture Nom (Unsp spec) or Staphylococcus aureus isolated. [facility] No Panel InformationOrdered By: Dr. Chen on 12-10-2021 14.8 SECONDS 11.7-14.9 [facility] 24.6 Seconds 24.1-36.2 [facility] Whole blood hemoglobin A1c/t otal hemoglobin ratio (mass fraction)Ordered By: Dr. Chen on 12-10-2021 HbA1c (Bld) [Mass fraction] 8.5 % 3.8-5.6 [facility] Comment on above: Normal < 5.7 % Predi abetic 5.7 - 6.4 % Diabetic >or= 6.5 % Please note range changes. Gram stain for investigation of transfusion reactionOrdered By: Dr. Joy on 12-09-2021 Microscopic observation Gram stain Nom (Unsp spec) [facility] Lower GI hemoglobin IA Ql (S tl)Ordered By: Dr. Rosas on 12-09-2021 Stool gastrointestinal hemoglobin detection by immunologic method Positive [facility] Respiratory pathogens DNA an d RNA 12b panel JUSTIN+probe (Unsp spec)Ordered By: Dr. Mackey on 12-09-2021 Rhinovirus [facility] Urine Legionella pneumophila antigen detectionOrdered By: Dr. Mackey on 12-09-2021 L. pneumophila Ag Ql (U) [facility] Absolute lymphocyte counton 12-08-2021 Lymphocytes Auto (Unsp spec) [#/Vol] 1.72 10*3/uL 0.83-4.51 [facility] Work Phone: Basophil percentageon 2021 Basophils/100 WBC (Bld) 0.7 % 0-1 [facility] Work Phone: Chloride [Moles/Vol] 110 mmol/L 98-107 [facility] Work Phone: Eosinophils/100 WBC (Bld) 3.8 % 0-5 [facility] Work Phone: Glucose [Mass/Vol] 200 mg/dL 74-106 [facility] Work Phone: Comment on above: Glucose result great er than or equal to 200 mg/dLsuggests DIABETES MELLITUS per A.D.A. criteria. Neutrophils (Bld) [#/Vol] 7.9 10*3/uL 2.0-7.7 [facility] Work Phone: Neutrophils/100 WBC (Bld) 68.8 % 47-70 [facility] Work Phone: Potassium [Moles/Vol] 4.0 mmol/L 3.5-5.1 [facility] Work Phone: Sodium [Moles/Vol] 143 mmol/L 136-145 [facility] Work Phone: WBC (Bld) [#/Vol] 11.5 10*3/uL 4.4-11.0 [facility] Work Phone: Blood erythrocytes count (nu mber/volume)on 12-08-2021 RBC (Bld) [#/Vol] 3.36 10*6/uL 4.6-6.2 [facility] Work Phone: Blood hemoglobin measurement (mass/volume)on 12-08-2021 Hemoglobin (Bld) [Mass/Vol] 9.0 g/dL 13.0-16.5 [facility] Work Phone: Blood lymphocytes/100 leukoc yteson 12-08-2021 Lymphocytes/100 WBC (Bld) 15.0 % 19-41 [facility] Work Phone: Blood monocytes/100 leukocyt eson 12-08-2021 Monocytes/100 WBC (Bld) 9.0 % 0-10 [facility] Work Phone: Blood platelet mean volumeon 12-08-2021 Platelet mean volume (Bld) [Entitic vol] 9.9 fL 6.2-12.0 [facility] Work Phone: Determination of erythrocyte mean corpuscular volume (MCV)on 12-08-2021 MCV (RBC) [Entitic vol] 88.7 fL 80-94 [facility] Work Phone: Hematocrit Auto (Bld) [Volum e fraction]on 12-08-2021 Hematocrit (Bld) [Volume fraction] 29.8 % 40-54 [facility] Work Phone: Laboratory - Chemistry and C hemistry - challengeon 12-08-2021 CO2 [Moles/Vol] 26.0 mmol/L 21.0-32.0 [facility] Work Phone: Natriuretic peptide B (Bld) [Mass/Vol] 191.0 pg/mL 0-100 [facility] Work Phone: Urea nitrogen/Creatinine [Mass ratio] 19.3 mg/mg 10-20 [facility] Work Phone: Laboratory - Hematology and Cell countson 12-08-2021 Erythrocyte distribution width (RBC) [Entitic vol] 57.9 fL 35.1-43.9 [facility] Work Phone: Erythrocyte distribution width (RBC) [Ratio] 17.9 % 11.6-14.6 [facility] Work Phone: Immature granulocytes/100 WBC (Bld) 2.700 % 0.0-0.9 [facility] Work Phone: Comment on above: IG% - Immature Granu locytes (promyelocytes, myelocytes and metamyelocytes) > 1% indicates that a LEFT SHIFT is Present. MCH (RBC) [Entitic mass] 26.8 pg 27.0-32.0 [facility] Work Phone: Nucleated RBC/100 WBC (Bld) [Ratio] 0 % 0-5 [facility] Work Phone: [phone] MCHC Auto (RBC) [Mass/Vol]on 12-08-2021 MCHC (RBC) [Mass/Vol] 30.2 g/dL 32-36 [facility] Work Phone: No Panel Informationon 12-08 Methicillin-Resist S.aureus DNA PCR Negative Negative [facility] Work Phone: D-Dimer Quantitative (PE/DVT) 1.50 FEU/ug/m 0.27-0.49 [facility] Work Phone: [phone] Comment on above: CRITICAL VALUE VERIF IED. CALLED TO [id number] Tim Oliva.RESULTS READ BACK BY SAME . D-Dimer ELEVATED (>0.49): Additional studies and clinicalassessments are indicated to conclude diagnosis of:Deep Vein Thrombosis (DVT) or Pulmonary Embolism (PE) Estimated Creatinine Clearance Calc 59.76 ml/min [facility] Work Phone: Estimated GFR (MDRD) Amer 77 mL/min >60 [facility] Work Phone: [phone] Comment on above: GFR Calc Estimated GFR (MDRD) Non-Af Amer 64 mL/min >60 [facility] Work Phone: Comment on above: Non- GFR Calc Troponin I High Sensitivity 11 pg/mL 3.0-78.0 [facility] Work Phone: Comment on above: Please Note: New Nicole t Units and Gender Specific Reference Ranges. For more information see Policy Stat Procedure [place] High Sensitivity Troponin (TNIH) and attachments. No Panel InformationOrdered By: Dr. Mackey on 12-08-2021 Negative Negative [facility] No Panel InformationOrdered By: Dr. Joy on 12-08-2021 1.50 FEU/ug/m 0.27-0.49 [facility] 11 pg/mL 3.0-78.0 [facility] 191.0 pg/mL 0-100 [facility] Platelets bldon 12-08-2021 Platelets (Bld) [#/Vol] 352 10*3/uL 150-450 [facility] Work Phone: Serum or plasma calcium yocasta urement (mass/volume)on 12-08-2021 Calcium [Mass/Vol] 9.1 mg/dL 8.5-10.1 [facility] Work Phone: Serum or plasma creatinine m easurement (mass/volume)on 12-08-2021 Creatinine [Mass/Vol] 1.19 mg/dL 0.70-1.30 [facility] Work Phone: Comment on above: The validity of the calculated GFR & GFRAA in patients over 70 years has not been determined. Clinical correlation is essential. Serum or plasma urea nitroge n measurement (mass/volume)on 12-08-2021 Urea nitrogen [Mass/Vol] 23 mg/dL 7-18 [facility] Work Phone: Thin prep Papanicolaou smear with manual screeningon 12-08-2021 Thin prep Papanicolaou smear with manual screening 7 - [facility] Work Phone: Basophil percentageon 2021 WBC (Bld) [#/Vol] 8.6 10*3/uL 4.4-11.0 [facility] Work Phone: Blood erythrocytes count (nu mber/volume)on 11-16-2021 RBC (Bld) [#/Vol] 3.80 10*6/uL 4.6-6.2 [facility] Work Phone: Blood hemoglobin measurement (mass/volume)on 11-16-2021 Hemoglobin (Bld) [Mass/Vol] 10.2 g/dL 13.0-16.5 [facility] Work Phone: Blood platelet mean volumeon 11-16-2021 Platelet mean volume (Bld) [Entitic vol] 10.9 fL 6.2-12.0 [facility] Work Phone: Determination of erythrocyte mean corpuscular volume (MCV)on 11-16-2021 MCV (RBC) [Entitic vol] 88.2 fL 80-94 [facility] Work Phone: [phone] Hematocrit Auto (Bld) [Volum e fraction]on 11-16-2021 Hematocrit (Bld) [Volume fraction] 33.5 % 40-54 [facility] Work Phone: Laboratory - Hematology and Cell countson 11-16-2021 Erythrocyte distribution width (RBC) [Entitic vol] 56.0 fL 35.1-43.9 [facility] Work Phone: [phone] Erythrocyte distribution width (RBC) [Ratio] 17.5 % 11.6-14.6 [facility] Work Phone: [phone] MCH (RBC) [Entitic mass] 26.8 pg 27.0-32.0 [facility] Work Phone: [phone] MCHC Auto (RBC) [Mass/Vol]on 11-16-2021 MCHC (RBC) [Mass/Vol] 30.4 g/dL 32-36 [facility] Work Phone: Platelets bldon 11-16-2021 Platelets (Bld) [#/Vol] 218 10*3/uL 150-450 [facility] Work Phone: [phone] Absolute lymphocyte counton 10-26-2021 Lymphocytes Auto (Unsp spec) [#/Vol] 0.85 10*3/uL 0.83-4.51 [facility] Work Phone: [phone] Basophil percentageon 2021 Basophils/100 WBC (Bld) 0.2 % 0-1 [facility] Work Phone: [phone] Bilirubin [Mass/Vol] 0.40 mg/dL 0.20-1.00 [facility] Work Phone: Comment on above: For patients on eltr ombopag therapy, use of Dimension [place] TBIL is not recommended. Chloride [Moles/Vol] 106 mmol/L 98-107 [facility] Work Phone: Eosinophils/100 WBC (Bld) 0.3 % 0-5 [facility] Work Phone: Glucose [Mass/Vol] 120 mg/dL 74-106 [facility] Work Phone: Comment on above: Fasting Glucose resu lt from 100 to 125 mg/dL suggests IMPAIRED HOMEOSTASIS per A.D.A. criteria. Neutrophils (Bld) [#/Vol] 6.8 10*3/uL 2.0-7.7 [facility] Work Phone: Neutrophils/100 WBC (Bld) 75.9 % 47-70 [facility] Work Phone: Potassium [Moles/Vol] 4.0 mmol/L 3.5-5.1 [facility] Work Phone: Protein [Mass/Vol] 5.3 g/dL 6.4-8.2 [facility] Work Phone: Sodium [Moles/Vol] 143 mmol/L 136-145 [facility] Work Phone: WBC (Bld) [#/Vol] 8.9 10*3/uL 4.4-11.0 [facility] Work Phone: Blood erythrocytes count (nu mber/volume)on 10-26-2021 RBC (Bld) [#/Vol] 3.44 10*6/uL 4.6-6.2 [facility] Work Phone: Blood hemoglobin measurement (mass/volume)on 10-26-2021 Hemoglobin (Bld) [Mass/Vol] 9.0 g/dL 13.0-16.5 [facility] Work Phone: Blood lymphocytes/100 leukoc yteson 10-26-2021 Lymphocytes/100 WBC (Bld) 9.6 % 19-41 [facility] Work Phone: Blood monocytes/100 leukocyt eson 10-26-2021 Monocytes/100 WBC (Bld) 12.5 % 0-10 [facility] Work Phone: [phone] Blood platelet mean volumeon 10-26-2021 Platelet mean volume (Bld) [Entitic vol] 10.2 fL 6.2-12.0 [facility] Work Phone: [phone] Determination of erythrocyte mean corpuscular volume (MCV)on 10-26-2021 MCV (RBC) [Entitic vol] 85.5 fL 80-94 [facility] Work Phone: Glucose Glucometer (BldC) [M ass/Vol]on 10-26-2021 Glucose [Mass/Vol] 236 mg/dL 74-106 [facility] Work Phone: Comment on above: MANAGEMENT OF PATIEN T CARE PER NURSING PROTOCOL Hematocrit Auto (Bld) [Volum e fraction]on 10-26-2021 Hematocrit (Bld) [Volume fraction] 29.4 % 40-54 [facility] Work Phone: Laboratory - Chemistry and C hemistry - challengeon 10-26-2021 ALP [Catalytic activity/Vol] 71 U/L 45-117 [facility] Work Phone: ALT [Catalytic activity/Vol] 11 U/L 16-61 [facility] Work Phone: [phone] CO2 [Moles/Vol] 30.0 mmol/L 21.0-32.0 [facility] Work Phone: [phone] Globulin (S) [Mass/Vol] 2.6 g/dL 2.2-4.2 [facility] Work Phone: [phone] Urea nitrogen/Creatinine [Mass ratio] 20.3 mg/mg 10-20 [facility] Work Phone: [phone] Laboratory - Hematology and Cell countson 10-26-2021 Erythrocyte distribution width (RBC) [Entitic vol] 49.1 fL 35.1-43.9 [facility] Work Phone: [phone] Erythrocyte distribution width (RBC) [Ratio] 15.9 % 11.6-14.6 [facility] Work Phone: Immature granulocytes/100 WBC (Bld) 1.500 % 0.0-0.9 [facility] Work Phone: [phone] Comment on above: IG% - Immature Granu locytes (promyelocytes, myelocytes and metamyelocytes) > 1% indicates that a LEFT SHIFT is Present. MCH (RBC) [Entitic mass] 26.2 pg 27.0-32.0 [facility] Work Phone: [phone] Nucleated RBC/100 WBC (Bld) [Ratio] 0 % 0-5 [facility] Work Phone: [phone] MCHC Auto (RBC) [Mass/Vol]on 10-26-2021 MCHC (RBC) [Mass/Vol] 30.6 g/dL 32-36 [facility] Work Phone: No Panel Informationon 10-26 Estimated Creatinine Clearance Calc 55.56 ml/min [facility] Work Phone: [phone] Estimated GFR (MDRD) Amer 71 mL/min >60 [facility] Work Phone: [phone] Comment on above: GFR Calc Estimated GFR (MDRD) Non-Af Amer 59 mL/min >60 [facility] Work Phone: [phone] Comment on above: Non- GFR Calc Platelets bldon 10-26-2021 Platelets (Bld) [#/Vol] 316 10*3/uL 150-450 [facility] Work Phone: [phone] Serum or plasma albumin yocasta urement (mass/volume)on 10-26-2021 Albumin [Mass/Vol] 2.7 g/dL 3.2-5.0 [facility] Work Phone: [phone] Serum or plasma albumin/glob ulin mass ratioon 10-26-2021 Albumin/Globulin [Mass ratio] 1.0 {ratio} 0.9-2.4 [facility] Work Phone: [phone] Serum or plasma calcium yocasta urement (mass/volume)on 10-26-2021 Calcium [Mass/Vol] 8.7 mg/dL 8.5-10.1 [facility] Work Phone: Serum or plasma creatinine m easurement (mass/volume)on 10-26-2021 Creatinine [Mass/Vol] 1.28 mg/dL 0.70-1.30 [facility] Work Phone: Comment on above: The validity of the calculated GFR & GFRAA in patients over 70 years has not been determined. Clinical correlation is essential. Serum or plasma urea nitroge n measurement (mass/volume)on 10-26-2021 Urea nitrogen [Mass/Vol] 26 mg/dL 7-18 [facility] Work Phone: Thin prep Papanicolaou smear with manual screeningon 10-26-2021 Thin prep Papanicolaou smear with manual screening 8 U/L 15-37 [facility] Work Phone: Thin prep Papanicolaou smear with manual screening 7 5-15 [facility] Work Phone: Direct bilirubinon Bilirubin.direct [Mass/Vol] 0.13 mg/dL 0.00-0.30 [facility] Work Phone: INR in Blood by Coagulation assayon 10-25-2021 INR Coag (Bld) [Relative time] 1.1 {INR} [facility] Work Phone: Laboratory - Coagulationon 0 10-25-2021 aPTT Coag (Bld) [Time] 32.7 s 24.1-36.2 [facility] Work Phone: PT Coag (PPP) [Time] 13.6 s 11.7-14.9 [facility] Work Phone: Whole blood hemoglobin A1c/t otal hemoglobin ratio (mass fraction)on 10-25-2021 HbA1c (Bld) [Mass fraction] 6.5 % 3.8-5.6 [facility] Work Phone: Comment on above: Normal < 5.7 % Predi abetic 5.7 - 6.4 % Diabetic >or= 6.5 % Please note range changes. Laboratory - Chemistry and C hemistry - challengeon 10-24-2021 Natriuretic peptide B (Bld) [Mass/Vol] 249.7 pg/mL 0-100 [facility] Work Phone: Basophil percentageon 2021 Lactate [Moles/Vol] 1.0 mmol/L 0.4-2.0 [facility] Work Phone: No Panel Informationon 10-23 Troponin I High Sensitivity 10 pg/mL 3.0-78.0 [facility] Work Phone: Comment on above: Please Note: New Nicole t Units and Gender Specific Reference Ranges. For more information see Policy Stat Procedure [place] High Sensitivity Troponin (TNIH) and attachments. Absolute lymphocyte counton 10-02-2021 Lymphocytes Auto (Unsp spec) [#/Vol] 1.26 10*3/uL 0.83-4.51 [facility] Work Phone: [phone] Basophil percentageon 2021 Basophils/100 WBC (Bld) 0.9 % 0-1 [facility] Work Phone: Bilirubin [Mass/Vol] 0.30 mg/dL 0.20-1.00 [facility] Work Phone: Comment on above: For patients on eltr ombopag therapy, use of Dimension [place] TBIL is not recommended. Chloride [Moles/Vol] 110 mmol/L 98-107 [facility] Work Phone: Eosinophils/100 WBC (Bld) 12.4 % 0-5 [facility] Work Phone: Glucose [Mass/Vol] 96 mg/dL 74-106 [facility] Work Phone: Neutrophils (Bld) [#/Vol] 4.4 10*3/uL 2.0-7.7 [facility] Work Phone: Neutrophils/100 WBC (Bld) 55.3 % 47-70 [facility] Work Phone: Potassium [Moles/Vol] 3.9 mmol/L 3.5-5.1 [facility] Work Phone: Protein [Mass/Vol] 5.2 g/dL 6.4-8.2 [facility] Work Phone: [phone] Sodium [Moles/Vol] 141 mmol/L 136-145 [facility] Work Phone: [phone] WBC (Bld) [#/Vol] 8.0 10*3/uL 4.4-11.0 [facility] Work Phone: Blood erythrocytes count (nu mber/volume)on 10-02-2021 RBC (Bld) [#/Vol] 2.90 10*6/uL 4.6-6.2 [facility] Work Phone: [phone] Blood hemoglobin measurement (mass/volume)on 10-02-2021 Hemoglobin (Bld) [Mass/Vol] 8.0 g/dL 13.0-16.5 [facility] Work Phone: Blood lymphocytes/100 leukoc yteson 10-02-2021 Lymphocytes/100 WBC (Bld) 15.7 % 19-41 [facility] Work Phone: Blood monocytes/100 leukocyt eson 10-02-2021 Monocytes/100 WBC (Bld) 15.0 % 0-10 [facility] Work Phone: Blood platelet mean volumeon 10-02-2021 Platelet mean volume (Bld) [Entitic vol] 10.3 fL 6.2-12.0 [facility] Work Phone: [phone] Determination of erythrocyte mean corpuscular volume (MCV)on 10-02-2021 MCV (RBC) [Entitic vol] 89.3 fL 80-94 [facility] Work Phone: Glucose Glucometer (BldC) [M ass/Vol]on 10-02-2021 Glucose [Mass/Vol] 246 mg/dL 74-106 [facility] Work Phone: Comment on above: MANAGEMENT OF PATIEN T CARE PER NURSING PROTOCOL Hematocrit Auto (Bld) [Volum e fraction]on 10-02-2021 Hematocrit (Bld) [Volume fraction] 25.9 % 40-54 [facility] Work Phone: [phone] Laboratory - Chemistry and C hemistry - challengeon 10-02-2021 ALP [Catalytic activity/Vol] 71 U/L 45-117 [facility] Work Phone: [phone] ALT [Catalytic activity/Vol] 12 U/L 16-61 [facility] Work Phone: [phone] CO2 [Moles/Vol] 25.0 mmol/L 21.0-32.0 [facility] Work Phone: [phone] Globulin (S) [Mass/Vol] 3.0 g/dL 2.2-4.2 [facility] Work Phone: [phone] Urea nitrogen/Creatinine [Mass ratio] 22.2 mg/mg 10-20 [facility] Work Phone: [phone] Laboratory - Hematology and Cell countson 10-02-2021 Erythrocyte distribution width (RBC) [Entitic vol] 51.6 fL 35.1-43.9 [facility] Work Phone: [phone] Erythrocyte distribution width (RBC) [Ratio] 15.7 % 11.6-14.6 [facility] Work Phone: [phone] Immature granulocytes/100 WBC (Bld) 0.700 % 0.0-0.9 [facility] Work Phone: [phone] Comment on above: IG% - Immature Granu locytes (promyelocytes, myelocytes and metamyelocytes) > 1% indicates that a LEFT SHIFT is Present. MCH (RBC) [Entitic mass] 27.6 pg 27.0-32.0 [facility] Work Phone: [phone] Nucleated RBC/100 WBC (Bld) [Ratio] 0 % 0-5 [facility] Work Phone: [phone] MCHC Auto (RBC) [Mass/Vol]on 10-02-2021 MCHC (RBC) [Mass/Vol] 30.9 g/dL 32-36 [facility] Work Phone: [phone] Panel Informationon 10-02 Methicillin-Resist S.aureus DNA PCR Negative Negative [facility] Work Phone: Estimated Creatinine Clearance Calc 60.78 ml/min [facility] Work Phone: Estimated GFR (MDRD) Amer 79 mL/min >60 [facility] Work Phone: Comment on above: GFR Calc Estimated GFR (MDRD) Non-Af Amer 65 mL/min >60 [facility] Work Phone: Comment on above: Non- GFR Calc Platelets bldon 10-02-2021 Platelets (Bld) [#/Vol] 278 10*3/uL 150-450 [facility] Work Phone: Serum or plasma albumin yocasta urement (mass/volume)on 10-02-2021 Albumin [Mass/Vol] 2.2 g/dL 3.2-5.0 [facility] Work Phone: Serum or plasma albumin/glob ulin mass ratioon 10-02-2021 Albumin/Globulin [Mass ratio] 0.7 {ratio} 0.9-2.4 [facility] Work Phone: Serum or plasma calcium yocasta urement (mass/volume)on 10-02-2021 Calcium [Mass/Vol] 8.2 mg/dL 8.5-10.1 [facility] Work Phone: Serum or plasma creatinine m easurement (mass/volume)on 10-02-2021 Creatinine [Mass/Vol] 1.17 mg/dL 0.70-1.30 [facility] Work Phone: Comment on above: The validity of the calculated GFR & GFRAA in patients over 70 years has not been determined. Clinical correlation is essential. Serum or plasma urea nitroge n measurement (mass/volume)on 10-02-2021 Urea nitrogen [Mass/Vol] 26 mg/dL 7-18 [facility] Work Phone: Thin prep Papanicolaou smear with manual screeningon 10-02-2021 Thin prep Papanicolaou smear with manual screening 10 U/L 15-37 [facility] Work Phone: Thin prep Papanicolaou smear with manual screening 6 5-15 [facility] Work Phone: Whole blood hemoglobin A1c/t otal hemoglobin ratio (mass fraction)on 10-02-2021 HbA1c (Bld) [Mass fraction] 6.0 % 3.8-5.6 [facility] Work Phone: Comment on above: Normal < 5.7 % Predi abetic 5.7 - 6.4 % Diabetic >or= 6.5 % Please note range changes. Absolute lymphocyte counton 10-01-2021 Lymphocytes Auto (Unsp spec) [#/Vol] 1.71 10*3/uL 0.83-4.51 [facility] Work Phone: Basophil percentageon 2021 Basophils/100 WBC (Bld) 0.6 % 0-1 [facility] Work Phone: Chloride [Moles/Vol] 108 mmol/L 98-107 [facility] Work Phone: Eosinophils/100 WBC (Bld) 4.5 % 0-5 [facility] Work Phone: Glucose [Mass/Vol] 158 mg/dL 74-106 [facility] Work Phone: Comment on above: Fasting Glucose resu lt greater than or equal to 126 mg/dL suggests DIABETES MELLITUS per A.D.A. criteria. Lactate [Moles/Vol] 1.2 mmol/L 0.4-2.0 [facility] Work Phone: Neutrophils (Bld) [#/Vol] 9.8 10*3/uL 2.0-7.7 [facility] Work Phone: Neutrophils/100 WBC (Bld) 70.1 % 47-70 [facility] Work Phone: Potassium [Moles/Vol] 4.1 mmol/L 3.5-5.1 [facility] Work Phone: Sodium [Moles/Vol] 141 mmol/L 136-145 [facility] Work Phone: WBC (Bld) [#/Vol] 13.9 10*3/uL 4.4-11.0 [facility] Work Phone: Blood erythrocytes count (nu mber/volume)on 10-01-2021 RBC (Bld) [#/Vol] 3.29 10*6/uL 4.6-6.2 [facility] Work Phone: Blood hemoglobin measurement (mass/volume)on 10-01-2021 Hemoglobin (Bld) [Mass/Vol] 8.7 g/dL 13.0-16.5 [facility] Work Phone: Blood lymphocytes/100 leukoc yteson 10-01-2021 Lymphocytes/100 WBC (Bld) 12.3 % 19-41 [facility] Work Phone: Blood monocytes/100 leukocyt eson 10-01-2021 Monocytes/100 WBC (Bld) 11.6 % 0-10 [facility] Work Phone: Blood platelet adequacy dete ction by light microscopyon 10-01-2021 Platelets LM Ql (Bld) ADEQUATE ADEQ [facility] Work Phone: Blood platelet mean volumeon 10-01-2021 Platelet mean volume (Bld) [Entitic vol] 11.0 fL 6.2-12.0 [facility] Work Phone: Determination of erythrocyte mean corpuscular volume (MCV)on 10-01-2021 MCV (RBC) [Entitic vol] 87.2 fL 80-94 [facility] Work Phone: Hematocrit Auto (Bld) [Volum e fraction]on 10-01-2021 Hematocrit (Bld) [Volume fraction] 28.7 % 40-54 [facility] Work Phone: Laboratory - Chemistry and C hemistry - challengeon 10-01-2021 CO2 [Moles/Vol] 27.0 mmol/L 21.0-32.0 [facility] Work Phone: [phone] Natriuretic peptide B (Bld) [Mass/Vol] 244.9 pg/mL 0-100 [facility] Work Phone: [phone] Urea nitrogen/Creatinine [Mass ratio] 18.9 mg/mg 10-20 [facility] Work Phone: [phone] Laboratory - Hematology and Cell countson 10-01-2021 Erythrocyte distribution width (RBC) [Entitic vol] 49.9 fL 35.1-43.9 [facility] Work Phone: [phone] Erythrocyte distribution width (RBC) [Ratio] 15.5 % 11.6-14.6 [facility] Work Phone: [phone] Immature granulocytes/100 WBC (Bld) 0.900 % 0.0-0.9 [facility] Work Phone: [phone] Comment on above: IG% - Immature Granu locytes (promyelocytes, myelocytes and metamyelocytes) > 1% indicates that a LEFT SHIFT is Present. MCH (RBC) [Entitic mass] 26.4 pg 27.0-32.0 [facility] Work Phone: [phone] Nucleated RBC/100 WBC (Bld) [Ratio] 0 % 0-5 [facility] Work Phone: [phone] Laboratory - Microbiology an d Antimicrobial susceptibilityon 10-01-2021 SARS-CoV-2 (COVID-19) RNA JUSTIN+probe Ql (Unsp spec) Not detected Not Detect [facility] Work Phone: [phone] Comment on above: Normal Reference Ran ge: [...] 10-01-2021 MCHC (RBC) [Mass/Vol] 30.3 g/dL 32-36 [facility] Work Phone: No Panel Informationon 10-01 Estimated Creatinine Clearance Calc 48.05 ml/min [facility] Work Phone: [phone] Estimated GFR (MDRD) Amer 60 mL/min >60 [facility] Work Phone: [phone] Comment on above: GFR Calc Estimated GFR (MDRD) Non-Af Amer 50 mL/min >60 [facility] Work Phone: [phone] Comment on above: Non- GFR Calc Troponin I High Sensitivity 13 pg/mL 3.0-78.0 [facility] Work Phone: Comment on above: Please Note: New Nicole t Units and Gender Specific Reference Ranges. For more information see Policy Stat Procedure [place] High Sensitivity Troponin (TNIH) and attachments. Platelets bldon 10-01-2021 Platelets (Bld) [#/Vol] 441 10*3/uL 150-450 [facility] Work Phone: [phone] RBC morphologyon 10-01-2021 RBC morphology finding Nom (Bld) NORM C+C NORMAL NORM C&C [facility] Work Phone: Review by pathologiston Pathologist review Sohan (Unsp spec) [Interp] Josephine hair [facility] Work Phone: Pathologist review Sohan (Unsp spec) [Interp] Reviewed [facility] Work Phone: [phone] Comment on above: Previous reported re sult: Josephine hair Edited by: RGOCARLA on 10/02/21:1304Neutrophilic leukocytosis.Normocytic anemia.Clinical correlation necessary.Mc Urias M.D. 10/02/21 AMENDED REPORT 10/02/21 1304 PATH REV previously reported as: Josephine hair Serum or plasma calcium yocasta urement (mass/volume)on 10-01-2021 Calcium [Mass/Vol] 9.0 mg/dL 8.5-10.1 [facility] Work Phone: Serum or plasma creatinine m easurement (mass/volume)on 10-01-2021 Creatinine [Mass/Vol] 1.48 mg/dL 0.70-1.30 [facility] Work Phone: Comment on above: The validity of the calculated GFR & GFRAA in patients over 70 years has not been determined. Clinical correlation is essential. Serum or plasma urea nitroge n measurement (mass/volume)on 10-01-2021 Urea nitrogen [Mass/Vol] 28 mg/dL 7-18 [facility] Work Phone: Serum procalcitonin measurem enton 10-01-2021 Procalcitonin [Mass/Vol] 0.21 ng/mL 0.00-0.09 [facility] Work Phone: Comment on above: A [...] Papanicolaou smear with manual screening 6 5-15 [facility] Work Phone: Absolute lymphocyte counton 08-07-2021 Lymphocytes Auto (Unsp spec) [#/Vol] 1.59 10*3/uL 0.83-4.51 [facility] Work Phone: Basophil percentageon 2021 Basophils/100 WBC (Bld) 0.2 % 0-1 [facility] Work Phone: Chloride [Moles/Vol] 113 mmol/L 98-107 [facility] Work Phone: Eosinophils/100 WBC (Bld) 0.7 % 0-5 [facility] Work Phone: Glucose [Mass/Vol] 131 mg/dL 74-106 [facility] Work Phone: Comment on above: Fasting Glucose resu lt greater than or equal to 126 mg/dL suggests DIABETES MELLITUS per A.D.A. criteria. Neutrophils (Bld) [#/Vol] 5.5 10*3/uL 2.0-7.7 [facility] Work Phone: Neutrophils/100 WBC (Bld) 67.5 % 47-70 [facility] Work Phone: Potassium [Moles/Vol] 3.6 mmol/L 3.5-5.1 [facility] Work Phone: Sodium [Moles/Vol] 142 mmol/L 136-145 [facility] Work Phone: WBC (Bld) [#/Vol] 8.1 10*3/uL 4.4-11.0 [facility] Work Phone: Blood erythrocytes count (nu mber/volume)on 08-07-2021 RBC (Bld) [#/Vol] 2.63 10*6/uL 4.6-6.2 [facility] Work Phone: Blood hemoglobin measurement (mass/volume)on 08-07-2021 Hemoglobin (Bld) [Mass/Vol] 8.7 g/dL 13.0-16.5 [facility] Work Phone: Blood lymphocytes/100 leukoc yteson 08-07-2021 Lymphocytes/100 WBC (Bld) 19.6 % 19-41 [facility] Work Phone: Blood monocytes/100 leukocyt eson 08-07-2021 Monocytes/100 WBC (Bld) 11.6 % 0-10 [facility] Work Phone: [phone] Blood platelet mean volumeon 08-07-2021 Platelet mean volume (Bld) [Entitic vol] 10.1 fL 6.2-12.0 [facility] Work Phone: Determination of erythrocyte mean corpuscular volume (MCV)on 08-07-2021 MCV (RBC) [Entitic vol] 84.8 fL 80-94 [facility] Work Phone: Glucose Glucometer (BldC) [M ass/Vol]on 08-07-2021 Glucose [Mass/Vol] 146 mg/dL 74-106 [facility] Work Phone: Comment on above: MANAGEMENT OF PATIEN T CARE PER NURSING PROTOCOL Hematocrit Auto (Bld) [Volum e fraction]on 08-07-2021 Hematocrit (Bld) [Volume fraction] 27.3 % 40-54 [facility] Work Phone: Iron measurement (mass/mass) on 08-07-2021 Iron (Unsp spec) [Mass/Mass] 14 ug/dL 65-175 [facility] Work Phone: Laboratory - Chemistry and C hemistry - challengeon 08-07-2021 Cobalamin (Vitamin B12) [Mass/Vol] 1092 pg/mL 211-911 [facility] Work Phone: CO2 [Moles/Vol] 22.0 mmol/L 21.0-32.0 [facility] Work Phone: Urea nitrogen/Creatinine [Mass ratio] 29.4 mg/mg 10-20 [facility] Work Phone: [phone] Laboratory - Hematology and Cell countson 08-07-2021 Erythrocyte distribution width (RBC) [Entitic vol] 47.6 fL 35.1-43.9 [facility] Work Phone: [phone] Erythrocyte distribution width (RBC) [Ratio] 15.5 % 11.6-14.6 [facility] Work Phone: Immature granulocytes/100 WBC (Bld) 0.400 % 0.0-0.9 [facility] Work Phone: Comment on above: IG% - Immature Granu locytes (promyelocytes, myelocytes and metamyelocytes) > 1% indicates that a LEFT SHIFT is Present. MCH (RBC) [Entitic mass] 26.6 pg 27.0-32.0 [facility] Work Phone: Nucleated RBC/100 WBC (Bld) [Ratio] 0 % 0-5 [facility] Work Phone: MCHC Auto (RBC) [Mass/Vol]on 08-07-2021 MCHC (RBC) [Mass/Vol] 31.4 g/dL 32-36 [facility] Work Phone: No Panel Informationon 08-07 Total Iron Binding Capacity 133 ug/dL 250-450 [facility] Work Phone: Estimated Creatinine Clearance Calc 72.16 ml/min [facility] Work Phone: Estimated GFR (MDRD) Amer 126 mL/min >60 [facility] Work Phone: Comment on above: GFR Calc Estimated GFR (MDRD) Non-Af Amer 104 mL/min >60 [facility] Work Phone: Comment on above: Non- GFR Calc Platelets bldon 08-07-2021 Platelets (Bld) [#/Vol] 206 10*3/uL 150-450 [facility] Work Phone: Serum or plasma calcium yocasta urement (mass/volume)on 08-07-2021 Calcium [Mass/Vol] 5.4 mg/dL 8.5-10.1 [facility] Work Phone: Comment on above: Critical Result(s) C alled at: 06:53:34 08/07/2021 by: Van Foy. Edi Banegas RN (MS3). Results read back by same. Serum or plasma creatinine m easurement (mass/volume)on 08-07-2021 Creatinine [Mass/Vol] 0.78 mg/dL 0.70-1.30 [facility] Work Phone: [phone] Comment on above: The validity of the calculated GFR & GFRAA in patients over 70 years has not been determined. Clinical correlation is essential. Serum or plasma ferritin vasquez surement (mass/volume)on 08-07-2021 Ferritin [Mass/Vol] 301 ng/mL 26-388 [facility] Work Phone: [phone] Serum or plasma iron saturat ion measurement (mass fraction)on 08-07-2021 Iron saturation [Mass fraction] 10.5 % 15.0-55.0 [facility] Work Phone: [phone] Serum or plasma urea nitroge n measurement (mass/volume)on 08-07-2021 Urea nitrogen [Mass/Vol] 23 mg/dL 7-18 [facility] Work Phone: [phone] Thin prep Papanicolaou smear with manual screeningon 08-07-2021 Thin prep Papanicolaou smear with manual screening 7 5-15 [facility] Work Phone: [phone] Absolute lymphocyte counton 08-06-2021 Lymphocytes Auto (Unsp spec) [#/Vol] 2.34 10*3/uL 0.83-4.51 [facility] Work Phone: [phone] Basophil percentageon 2021 Basophil percentage >100 SEEN /hpf 0-5 [facility] Work Phone: [phone] Basophils/100 WBC (Bld) 0.4 % 0-1 [facility] Work Phone: [phone] Bilirubin [Mass/Vol] 0.50 mg/dL 0.20-1.00 [facility] Work Phone: [phone] Comment on above: For patients on eltr ombopag therapy, use of Dimension [place] TBIL is not recommended. Chloride [Moles/Vol] 109 mmol/L 98-107 [facility] Work Phone: [phone] Eosinophils/100 WBC (Bld) 4.9 % 0-5 [facility] Work Phone: Glucose [Mass/Vol] 104 mg/dL 74-106 [facility] Work Phone: Comment on above: Fasting Glucose resu lt from 100 to 125 mg/dL suggests IMPAIRED HOMEOSTASIS per A.D.A. criteria. Neutrophils (Bld) [#/Vol] 5.7 10*3/uL 2.0-7.7 [facility] Work Phone: Neutrophils/100 WBC (Bld) 60.6 % 47-70 [facility] Work [phone] Potassium [Moles/Vol] 3.6 mmol/L 3.5-5.1 [facility] Work Phone: Protein [Mass/Vol] 5.3 g/dL 6.4-8.2 [facility] Work Phone: Sodium [Moles/Vol] 141 mmol/L 136-145 [facility] Work Phone: WBC (Bld) [#/Vol] 9.4 10*3/uL 4.4-11.0 [facility] Work Phone: Bilirubin Test strip Ql (U)o n 08-06-2021 Bilirubin Ql (U) Negative Negative [facility] Work Phone: [phone] Blood erythrocytes count (nu mber/volume)on 08-06-2021 RBC (Bld) [#/Vol] 3.46 10*6/uL 4.6-6.2 [facility] Work Phone: Blood hemoglobin measurement (mass/volume)on 08-06-2021 Hemoglobin (Bld) [Mass/Vol] 9.4 g/dL 13.0-16.5 [facility] Work Phone: Blood lymphocytes/100 leukoc yteson 08-06-2021 Lymphocytes/100 WBC (Bld) 24.8 % 19-41 [facility] Work Phone: Blood monocytes/100 leukocyt eson 08-06-2021 Monocytes/100 WBC (Bld) 8.8 % 0-10 [facility] Work Phone: [phone] Blood platelet mean volumeon 08-06-2021 Platelet mean volume (Bld) [Entitic vol] 10.4 fL 6.2-12.0 [facility] Work Phone: [phone] Determination of erythrocyte mean corpuscular volume (MCV)on 08-06-2021 MCV (RBC) [Entitic vol] 85.0 fL 80-94 [facility] Work Phone: [phone] Direct bilirubinon Bilirubin.direct [Mass/Vol] 0.22 mg/dL 0.00-0.30 [facility] Work Phone: [phone] Glucose Glucometer (BldC) [M ass/Vol]on 08-06-2021 Glucose [Mass/Vol] 109 mg/dL 74-106 [facility] Work Phone: [phone] Comment on above: MANAGEMENT OF PATIEN T CARE PER NURSING PROTOCOL Hematocrit Auto (Bld) [Volum e fraction]on 08-06-2021 Hematocrit (Bld) [Volume fraction] 29.4 % 40-54 [facility] Work Phone: [phone] Ketones Test strip Ql (U)on 08-06-2021 Ketones Ql (U) Negative Negative [facility] Work Phone: Laboratory - Chemistry and C hemistry - challengeon 08-06-2021 ALP [Catalytic activity/Vol] 96 U/L 45-117 [facility] Work Phone: ALT [Catalytic activity/Vol] 14 U/L 16-61 [facility] Work Phone: [phone] CO2 [Moles/Vol] 25.0 mmol/L 21.0-32.0 [facility] Work Phone: [phone] Globulin (S) [Mass/Vol] 3.1 g/dL 2.2-4.2 [facility] Work Phone: [phone] Urea nitrogen/Creatinine [Mass ratio] 20.4 mg/mg 10-20 [facility] Work Phone: [phone] Laboratory - Hematology and Cell countson 08-06-2021 Erythrocyte distribution width (RBC) [Entitic vol] 48.0 fL 35.1-43.9 [facility] Work Phone: [phone] Erythrocyte distribution width (RBC) [Ratio] 15.5 % 11.6-14.6 [facility] Work Phone: [phone] Immature granulocytes/100 WBC (Bld) 0.500 % 0.0-0.9 [facility] Work Phone: [phone] Comment on above: IG% - Immature Granu locytes (promyelocytes, myelocytes and metamyelocytes) > 1% indicates that a LEFT SHIFT is Present. MCH (RBC) [Entitic mass] 27.2 pg 27.0-32.0 [facility] Work Phone: [phone] Nucleated RBC/100 WBC (Bld) [Ratio] 0 % 0-5 [facility] Work Phone: [phone] MCHC Auto (RBC) [Mass/Vol]on 08-06-2021 MCHC (RBC) [Mass/Vol] 32.0 g/dL 32-36 [facility] Work Phone: [phone] Mucus LM Ql (Urine sed)on Mucus Ql (Urine sed) 0 SEEN /hpf [facility] Work Phone: [phone] Nitrite Test strip Ql (U)on 08-06-2021 Nitrite Ql (U) Negative Negative [facility] Work Phone: [phone] Panel Informationon 08-06 Streptococcus pneumoniae Antigen (M [facility] Work Phone: [phone] Respiratory Panel (PCR) Rhinovirus [facility] Work Phone: [phone] Ionized Calcium 3.5 mg/dL 4.5-5.6 [facility] Work Phone: [phone] Comment on above: Performed at: [address] [id number] Director: Elder Sweet PhD, Phone: [phone] Estimated Creatinine Clearance Calc 66.82 ml/min [facility] Work Phone: [phone] Estimated GFR (MDRD) Amer 87 mL/min >60 [facility] Work Phone: Comment on above: GFR Calc Estimated GFR (MDRD) Non-Af Amer 72 mL/min >60 [facility] Work Phone: Comment on above: Non- GFR Calc Platelets bldon 08-06-2021 Platelets (Bld) [#/Vol] 332 10*3/uL 150-450 [facility] Work Phone: Protein Test strip Ql (U)on 08-06-2021 Protein Ql (U) 15 mg/dl Negative [facility] Work Phone: Serum or plasma albumin yocasta urement (mass/volume)on 08-06-2021 Albumin [Mass/Vol] 2.2 g/dL 3.2-5.0 [facility] Work Phone: Serum or plasma calcium yocasta urement (mass/volume)on 08-06-2021 Calcium [Mass/Vol] 6.1 mg/dL 8.5-10.1 [facility] Work Phone: Comment on above: Critical Result(s) C alled at: 13:19:46 08/06/2021 by: Sharyn Shay. Results read back by same. Serum or plasma creatinine m easurement (mass/volume)on 08-06-2021 Creatinine [Mass/Vol] 1.08 mg/dL 0.70-1.30 [facility] Work Phone: Comment on above: The validity of the calculated GFR & GFRAA in patients over 70 years has not been determined. Clinical correlation is essential. Serum or plasma urea nitroge n measurement (mass/volume)on 08-06-2021 Urea nitrogen [Mass/Vol] 22 mg/dL 7-18 [facility] Work Phone: Squamous epithelial cells de tection in urine sediment by light microscopyon 08-06-2021 Epithelial cells.squamous LM Ql (Urine sed) 0-5 SEEN /hpf 0-5 [facility] Work Phone: Thin prep Papanicolaou smear with manual screeningon 08-06-2021 Thin prep Papanicolaou smear with manual screening 17 U/L 15-37 [facility] Work Phone: Thin prep Papanicolaou smear with manual screening 7 5-15 [facility] Work Phone: Urine blood detectionon 07-25 RBC Ql (U) 25 /ul Negative [facility] Work Phone: RBC Ql (U) 5-10 SEEN /hpf 0-5 [facility] Work Phone: Urine clarityon 08-06-2021 Clarity (U) Sl. Cloudy Clear [facility] Work Phone: Urine color determinationon 08-06-2021 Color (U) Yellow Yellow [facility] Work Phone: Urine glucose detectionon Glucose Ql (U) Normal mg/dl Normal [facility] Work Phone: Urine leukocyte esterase det ection by dipstickon 08-06-2021 Leukocyte esterase Test strip Ql (U) 500 /ul Negative [facility] Work Phone: Urine pHon 08-06-2021 pH (U) 6.0 [pH] 5.0 - 8.0 [facility] Work Phone: Urine sediment bacteria coun t by microscopy (number/high power field)on 08-06-2021 Bacteria LM.HPF (Urine sed) [#/Area] 1 /[HPF] None Seen [facility] Work Phone: Urine sediment yeast count b y microscopy (number/high powered field)on 08-06-2021 Yeast LM.HPF (Urine sed) [#/Area] 4 /[HPF] None Seen [facility] Work Phone: Urine specific gravity measu rementon 08-06-2021 Specific gravity (U) [Rel density] 1.015 1.002-1.030 [facility] Work Phone: Urobilinogen Auto test strip Ql (U)on 08-06-2021 Urobilinogen Ql (U) Normal mg/dl Normal [facility] Work Phone: Absolute lymphocyte counton 08-01-2021 Lymphocytes Auto (Unsp spec) [#/Vol] 0.92 10*3/uL 0.83-4.51 [facility] Work Phone: Basophil percentageon 2021 Basophils/100 WBC (Bld) 0.3 % 0-1 [facility] Work Phone: Bilirubin [Mass/Vol] 0.60 mg/dL 0.20-1.00 [facility] Work Phone: Comment on above: For patients on eltr ombopag therapy, use of Dimension [place] TBIL is not recommended. Chloride [Moles/Vol] 106 mmol/L 98-107 [facility] Work Phone: Eosinophils/100 WBC (Bld) 4.0 % 0-5 [facility] Work Phone: [phone] Glucose [Mass/Vol] 146 mg/dL 74-106 [facility] Work Phone: Comment on above: Fasting Glucose resu lt greater than or equal to 126 mg/dL suggests DIABETES MELLITUS per A.D.A. criteria. Neutrophils (Bld) [#/Vol] 8.0 10*3/uL 2.0-7.7 [facility] Work Phone: Neutrophils/100 WBC (Bld) 77.1 % 47-70 [facility] Work Phone: [phone] Potassium [Moles/Vol] 3.5 mmol/L 3.5-5.1 [facility] Work Phone: Protein [Mass/Vol] 5.4 g/dL 6.4-8.2 [facility] Work Phone: Sodium [Moles/Vol] 141 mmol/L 136-145 [facility] Work Phone: [phone] Comment on above: Critical Result(s) C alled at: 16:03:59 08/01/2021 by: Michael Aldana. Results read back by same. WBC (Bld) [#/Vol] 10.4 10*3/uL 4.4-11.0 [facility] Work Phone: Blood erythrocytes count (nu mber/volume)on 08-01-2021 RBC (Bld) [#/Vol] 3.62 10*6/uL 4.6-6.2 [facility] Work Phone: Blood hemoglobin measurement (mass/volume)on 08-01-2021 Hemoglobin (Bld) [Mass/Vol] 9.8 g/dL 13.0-16.5 [facility] Work Phone: Blood lymphocytes/100 leukoc yteson 08-01-2021 Lymphocytes/100 WBC (Bld) 8.9 % 19-41 [facility] Work Phone: Blood monocytes/100 leukocyt eson 08-01-2021 Monocytes/100 WBC (Bld) 7.5 % 0-10 [facility] Work Phone: Blood platelet mean volumeon 08-01-2021 Platelet mean volume (Bld) [Entitic vol] 10.9 fL 6.2-12.0 [facility] Work Phone: Determination of erythrocyte mean corpuscular volume (MCV)on 08-01-2021 MCV (RBC) [Entitic vol] 85.4 fL 80-94 [facility] Work Phone: Hematocrit Auto (Bld) [Volum e fraction]on 08-01-2021 Hematocrit (Bld) [Volume fraction] 30.9 % 40-54 [facility] Work Phone: Laboratory - Chemistry and C hemistry - challengeon 08-01-2021 ALP [Catalytic activity/Vol] 92 U/L 45-117 [facility] Work Phone: ALT [Catalytic activity/Vol] 19 U/L 16-61 [facility] Work Phone: CO2 [Moles/Vol] 22.0 mmol/L 21.0-32.0 [facility] Work Phone: Globulin (S) [Mass/Vol] 2.9 g/dL 2.2-4.2 [facility] Work Phone: [phone] Urea nitrogen/Creatinine [Mass ratio] 20.6 mg/mg 10-20 [facility] Work Phone: [phone] Laboratory - Hematology and Cell countson 08-01-2021 Erythrocyte distribution width (RBC) [Entitic vol] 49.0 fL 35.1-43.9 [facility] Work Phone: [phone] Erythrocyte distribution width (RBC) [Ratio] 15.6 % 11.6-14.6 [facility] Work Phone: [phone] Immature granulocytes/100 WBC (Bld) 2.200 % 0.0-0.9 [facility] Work Phone: [phone] Comment on above: IG% - Immature Granu locytes (promyelocytes, myelocytes and metamyelocytes) > 1% indicates that a LEFT SHIFT is Present. MCH (RBC) [Entitic mass] 27.1 pg 27.0-32.0 [facility] Work Phone: [phone] Nucleated RBC/100 WBC (Bld) [Ratio] 0 % 0-5 [facility] Work Phone: [phone] MCHC Auto (RBC) [Mass/Vol]on 08-01-2021 MCHC (RBC) [Mass/Vol] 31.7 g/dL 32-36 [facility] Work Phone: [phone] Panel Informationon 08-01 Estimated GFR (MDRD) Amer 87 mL/min >60 [facility] Work Phone: [phone] Comment on above: GFR Calc Estimated GFR (MDRD) Non-Af Amer 72 mL/min >60 [facility] Work Phone: [phone] Comment on above: Non- GFR Calc Platelets bldon 08-01-2021 Platelets (Bld) [#/Vol] 314 10*3/uL 150-450 [facility] Work Phone: [phone] Serum or plasma albumin yocasta urement (mass/volume)on 08-01-2021 Albumin [Mass/Vol] 2.5 g/dL 3.2-5.0 [facility] Work Phone: [phone] Serum or plasma albumin/glob ulin mass ratioon 08-01-2021 Albumin/Globulin [Mass ratio] 0.9 {ratio} 0.9-2.4 [facility] Work Phone: [phone] Serum or plasma calcium yocasta urement (mass/volume)on 08-01-2021 Calcium [Mass/Vol] 6.2 mg/dL 8.5-10.1 [facility] Work Phone: [phone] Serum or plasma creatinine m easurement (mass/volume)on 08-01-2021 Creatinine [Mass/Vol] 1.07 mg/dL 0.70-1.30 [facility] Work Phone: Comment on above: The validity of the calculated GFR & GFRAA in patients over 70 years has not been determined. Clinical correlation is essential. Serum or plasma urea nitroge n measurement (mass/volume)on 08-01-2021 Urea nitrogen [Mass/Vol] 22 mg/dL 7-18 [facility] Work Phone: Thin prep Papanicolaou smear with manual screeningon 08-01-2021 Thin prep Papanicolaou smear with manual screening 20 U/L 15-37 [facility] Work Phone: Thin prep Papanicolaou smear with manual screening 13 5-15 [facility] Work Phone: Basophil percentageon 2021 Basophil percentage 104 mg/dL 74-106 [facility] Work Phone: Basophil percentage 141 mmol/L 136-145 [facility] Work Phone: Basophil percentage 4.3 mmol/L 3.5-5.1 [facility] Work Phone: Basophil percentage 110 mmol/L 98-107 [facility] Work Phone: Basophils (Bld) [#/Vol] 6.6 10*3/uL 4.4-11.0 [facility] Work Phone: [phone] Chloride [Moles/Vol] 110 mmol/L 98-107 [facility] Work [facility]: [phone] Glucose [Mass/Vol] 104 mg/dL 74-106 [facility] Work Phone: [phone] Comment on above: Fasting Glucose resu lt from 100 to 125 mg/dL suggests IMPAIRED HOMEOSTASIS per A.D.A. criteria. Potassium [Moles/Vol] 4.3 mmol/L 3.5-5.1 [facility] Work Phone: [phone] Sodium [Moles/Vol] 141 mmol/L 136-145 [facility] Work Phone: [phone] WBC (Bld) [#/Vol] 6.6 10*3/uL 4.4-11.0 [facility] Work Phone: [phone] Blood erythrocytes count (nu mber/volume)on 06-15-2021 RBC (Bld) [#/Vol] 3.14 10*6/uL 4.6-6.2 [facility] Work Phone: [phone] Blood hemoglobin measurement (mass/volume)on 06-15-2021 Hemoglobin (Bld) [Mass/Vol] 8.5 g/dL 13.0-16.5 [facility] Work Phone: [phone] Blood platelet mean volumeon 06-15-2021 Platelet mean volume (Bld) [Entitic vol] 10.0 fL 6.2-12.0 [facility] Work Phone: [phone] Determination of erythrocyte mean corpuscular volume (MCV)on 06-15-2021 MCV (RBC) [Entitic vol] 86.0 fL 80-94 [facility] Work Phone: [phone] Hematocrit Auto (Bld) [Volum e fraction]on 06-15-2021 Hematocrit (Bld) [Volume fraction] 27.0 % 40-54 [facility] Work Phone: [phone] Laboratory - Chemistry and C hemistry - challengeon 06-15-2021 CO2 [Moles/Vol] 25.0 mmol/L 21.0-32.0 [facility] Work Phone: Urea nitrogen/Creatinine [Mass ratio] 20.2 mg/mg 10- [facility] Work Phone: [phone] Laboratory - Hematology and Cell countson 06-15-2021 Erythrocyte distribution width (RBC) [Entitic vol] 62.9 fL 35.1-43.9 [facility] Work Phone: [phone] Erythrocyte distribution width (RBC) [Ratio] 20.0 % 11.6-14.6 [facility] Work Phone: [phone] MCH (RBC) [Entitic mass] 27.1 pg 27.0-32.0 [facility] Work Phone: [phone] MCHC Auto (RBC) [Mass/Vol]on 06-15-2021 MCHC (RBC) [Mass/Vol] 31.5 g/dL 32-36 [facility] Work Phone: No Panel Informationon 06-15 Estimated GFR (MDRD) Amer 90 mL/min >60 [facility] Work Phone: Comment on above: GFR Calc Estimated GFR (MDRD) Non-Af Amer 75 mL/min >60 [facility] Work Phone: Comment on above: Non- GFR Calc 27.1 pg 27.0-32.0 [facility] Work Phone: 20.0 % 11.6-14.6 [facility] Work Phone: [phone] 62.9 fl 35.1-43.9 [facility] Work Phone: [phone] 75 mL/min >60 [facility] Work Phone: [phone] 90 mL/min >60 [facility] Work Phone: 20.2 RATIO 10- [facility] Work Phone: [phone] 25.0 mmol/L 21.0-32.0 [facility] Work Phone: Platelets bldon 06-15-2021 Platelets (Bld) [#/Vol] 357 10*3/uL 150-450 [facility] Work Phone: Serum or plasma calcium yocasta urement (mass/volume)on 06-15-2021 Calcium [Mass/Vol] 7.6 mg/dL 8.5-10.1 [facility] Work Phone: Serum or plasma creatinine m easurement (mass/volume)on 06-15-2021 Creatinine [Mass/Vol] 1.04 mg/dL 0.70-1.30 [facility] Work Phone: Comment on above: The validity of the calculated GFR & GFRAA in patients over 70 years has not been determined. Clinical correlation is essential. Serum or plasma urea nitroge n measurement (mass/volume)on 06-15-2021 Urea nitrogen [Mass/Vol] 21 mg/dL 7-18 [facility] Work Phone: Thin prep Papanicolaou smear with manual screeningon 06-15-2021 Thin prep Papanicolaou smear with manual screening 6 5-15 [facility] Work Phone: Glucose Glucometer (BldC) [M ass/Vol]on 05-18-2021 Glucose [Mass/Vol] 103 mg/dL 74-106 [facility] Work Phone: Comment on above: MANAGEMENT OF PATIEN T CARE PER NURSING PROTOCOL Absolute lymphocyte counton 05-12-2021 Lymphocytes Auto (Unsp spec) [#/Vol] 1.07 10*3/uL 0.83-4.51 [facility] Work Phone: Basophil percentageon 2021 Basophil percentage Not Reportable [facility] Work Phone: Basophil percentage 112 mg/dL 74-106 [facility] Work Phone: Basophil percentage 142 mmol/L 136-145 [facility] Work Phone: Basophil percentage 3.8 mmol/L 3.5-5.1 [facility] Work Phone: Basophil percentage 112 mmol/L 98-107 [facility] Work Phone: Basophils (Bld) [#/Vol] 6.7 10*3/uL 4.4-11.0 [facility] Work Phone: Basophils (Bld) [#/Vol] 4.2 10*3/uL 2.0-7.7 [facility] Work Phone: Chloride [Moles/Vol] 112 mmol/L 98-107 [facility] Work [facility]: Glucose [Mass/Vol] 112 mg/dL 74-106 [facility] Work Phone: Comment on above: Fasting Glucose resu lt from 100 to 125 mg/dL suggests IMPAIRED HOMEOSTASIS per A.D.A. criteria. Neutrophils (Bld) [#/Vol] 4.2 10*3/uL 2.0-7.7 [facility] Work Phone: Potassium [Moles/Vol] 3.8 mmol/L 3.5-5.1 [facility] Work Phone: Sodium [Moles/Vol] 142 mmol/L 136-145 [facility] Work Phone: WBC (Bld) [#/Vol] 6.7 10*3/uL 4.4-11.0 [facility] Work Phone: Blood band neutrophil count as percentage of total leukocyteson 05-12-2021 Band form neutrophils/100 WBC (Bld) 2 % 0-5 [facility] Work Phone: Blood eosinophils/100 leukoc yteson 05-12-2021 Eosinophils/100 WBC (Bld) 3 % 0-5 [facility] Work Phone: Blood erythrocytes count (nu mber/volume)on 05-12-2021 RBC (Bld) [#/Vol] 3.52 10*6/uL 4.6-6.2 [facility] Work Phone: Blood hemoglobin measurement (mass/volume)on 05-12-2021 Hemoglobin (Bld) [Mass/Vol] 9.5 g/dL 13.0-16.5 [facility] Work Phone: Blood lymphocytes/100 leukoc yteson 05-12-2021 Lymphocytes/100 WBC (Bld) 16 % 19-41 [facility] Work Phone: Blood metamyelocytes/100 dangelo kocyteson 05-12-2021 Metamyelocytes/100 WBC (Bld) 4 % 0-1 [facility] Work Phone: Blood monocytes/100 leukocyt eson 05-12-2021 Monocytes/100 WBC (Bld) 10 % 0-10 [facility] Work Phone: Blood platelet adequacy dete ction by light microscopyon 05-12-2021 Platelets LM Ql (Bld) ADEQUATE ADEQ [facility] Work Phone: Blood platelet mean volumeon 05-12-2021 Platelet mean volume (Bld) [Entitic vol] 10.2 fL 6.2-12.0 [facility] Work Phone: Blood segmented neutrophils/ 100 leukocyteson 05-12-2021 Segmented neutrophils/100 WBC (Bld) 61 % 47-70 [facility] Work Phone: Determination of erythrocyte mean corpuscular volume (MCV)on 05-12-2021 MCV (RBC) [Entitic vol] 83.0 fL 80-94 [facility] Work Phone: [phone] Hematocrit Auto (Bld) [Volum e fraction]on 05-12-2021 Hematocrit (Bld) [Volume fraction] 29.2 % 40-54 [facility] Work Phone: Laboratory - Chemistry and C hemistry - challengeon 05-12-2021 CO2 [Moles/Vol] 26.0 mmol/L 21.0-32.0 [facility] Work Phone: Urea nitrogen/Creatinine [Mass ratio] 13.8 mg/mg 10-20 [facility] Work Phone: Laboratory - Hematology and Cell countson 05-12-2021 Anisocytosis Ql (Bld) 1+ [facility] Work Phone: Erythrocyte distribution width (RBC) [Entitic vol] 52.5 fL 35.1-43.9 [facility] Work Phone: [phone] Erythrocyte distribution width (RBC) [Ratio] 17.8 % 11.6-14.6 [facility] Work Phone: [phone] MCH (RBC) [Entitic mass] 27.0 pg 27.0-32.0 [facility] Work Phone: [phone] Myelocytes/100 WBC (Bld) 4 % 0-0 [facility] Work Phone: [phone] MCHC Auto (RBC) [Mass/Vol]on 05-12-2021 MCHC (RBC) [Mass/Vol] 32.5 g/dL 32-36 [facility] Work Phone: [phone] No Panel Informationon 05-12 Estimated Creatinine Clearance Calc 67.91 ml/min [facility] Work Phone: [phone] Estimated GFR (MDRD) Amer 80 mL/min >60 [facility] Work Phone: [phone] Comment on above: GFR Calc Estimated GFR (MDRD) Non-Af Amer 66 mL/min >60 [facility] Work Phone: Comment on above: Non- GFR Calc 27.0 pg 27.0-32.0 [facility] Work Phone: [phone] 17.8 % 11.6-14.6 [facility] Work Phone: [phone] 52.5 fl 35.1-43.9 [facility] Work Phone: 4 % 0-0 [facility] Work Phone: 1+ [facility] Work Phone: 66 mL/min >60 [facility] Work Phone: 80 mL/min >60 [facility] Work Phone: 67.91 ml/min [facility] Work Phone: 13.8 RATIO 10-20 [facility] Work Phone: 26.0 mmol/L 21.0-32.0 [facility] Work Phone: Platelets bldon 05-12-2021 Platelets (Bld) [#/Vol] 443 10*3/uL 150-450 [facility] Work Phone: Review by pathologiston 04-24 Pathologist review Sohan (Unsp spec) [Interp] Reviewed [facility] Work Phone: Comment on above: Previous reported re sult: Josephine hair Edited by: RGOCARLA on 05/14/21:1437Normocytic anemia.Neutrophilic left shift.Clinical correlation necessary.Mc Urias M.D. 05/14/21 AMENDED REPORT 05/14/21 1437 PATH REV previously reported as: Josephine hair Serum or plasma calcium yocasta urement (mass/volume)on 05-12-2021 Calcium [Mass/Vol] 8.2 mg/dL 8.5-10.1 [facility] Work Phone: Serum or plasma creatinine m easurement (mass/volume)on 05-12-2021 Creatinine [Mass/Vol] 1.16 mg/dL 0.70-1.30 [facility] Work Phone: Comment on above: The validity of the calculated GFR & GFRAA in patients over 70 years has not been determined. Clinical correlation is essential. Serum or plasma urea nitroge n measurement (mass/volume)on 05-12-2021 Urea nitrogen [Mass/Vol] 16 mg/dL 7-18 [facility] Work Phone: Thin prep Papanicolaou smear with manual screeningon 05-12-2021 Thin prep Papanicolaou smear with manual screening 1+ [facility] Work Phone: Thin prep Papanicolaou smear with manual screening 4 5-15 [facility] Work Phone: Total cell counton 2 Cells counted Mol[employer] (Bld/Tiss) [#] 100 MANUAL DIFF [facility] Work Phone: Basophil percentageon 2021 Basophils/100 WBC (Bld) 3.0 % 0-5 [facility] Work Phone: [phone] Basophils/100 WBC (Bld) 0.4 % 0-1 [facility] Work Phone: Eosinophils/100 WBC (Bld) 3.0 % 0-5 [facility] Work Phone: Blood lymphocytes/100 leukoc yteson 05-05-2021 Lymphocytes/100 WBC (Bld) 14.8 % 19-41 [facility] Work Phone: Blood monocytes/100 leukocyt eson 05-05-2021 Monocytes/100 WBC (Bld) 10.8 % 0-10 [facility] Work Phone: Laboratory - Hematology and Cell countson 05-05-2021 Immature granulocytes/100 WBC (Bld) 2.800 % 0.0-0.9 [facility] Work Phone: Comment on above: IG% - Immature Granu locytes (promyelocytes, myelocytes and metamyelocytes) > 1% indicates that a LEFT SHIFT is Present. Nucleated RBC/100 WBC (Bld) [Ratio] 0 % 0-5 [facility] Work Phone: No Panel Informationon 05-05 2.800 % 0.0-0.9 [facility] Work Phone: 0 % 0-5 [facility] Work Phone: Absolute lymphocyte counton 05-04-2021 Lymphocytes Auto (Unsp spec) [#/Vol] 0.59 10*3/uL 0.83-4.51 [facility] Work Phone: Basophil percentageon 2021 Basophils (Bld) [#/Vol] 4.9 10*3/uL 4.4-11.0 [facility] Work Phone: Basophils (Bld) [#/Vol] 3.6 10*3/uL 2.0-7.7 [facility] Work Phone: Basophils/100 WBC (Bld) 72.2 % 47-70 [facility] Work Phone: Basophils/100 WBC (Bld) 3.6 % 0-5 [facility] Work Phone: Basophils/100 WBC (Bld) 0.4 % 0-1 [facility] Work Phone: Eosinophils/100 WBC (Bld) 3.6 % 0-5 [facility] Work Phone: Neutrophils (Bld) [#/Vol] 3.6 10*3/uL 2.0-7.7 [facility] Work Phone: Neutrophils/100 WBC (Bld) 72.2 % 47-70 [facility] Work Phone: WBC (Bld) [#/Vol] 4.9 10*3/uL 4.4-11.0 [facility] Work Phone: Blood erythrocytes count (nu mber/volume)on 05-04-2021 RBC (Bld) [#/Vol] 3.13 10*6/uL 4.6-6.2 [facility] Work Phone: Blood hemoglobin measurement (mass/volume)on 05-04-2021 Hemoglobin (Bld) [Mass/Vol] 8.3 g/dL 13.0-16.5 [facility] Work Phone: Blood lymphocytes/100 leukoc yteson 05-04-2021 Lymphocytes/100 WBC (Bld) 11.9 % 19-41 [facility] Work Phone: Blood manual differential co mment interpretation (narrative result)on 05-04-2021 Manual differential comment Sohan (Bld) [Interp] SCANNED [facility] Work Phone: Blood monocytes/100 leukocyt eson 05-04-2021 Monocytes/100 WBC (Bld) 9.9 % 0-10 [facility] Work Phone: Blood platelet mean volumeon 05-04-2021 Platelet mean volume (Bld) [Entitic vol] 10.0 fL 6.2-12.0 [facility] Work Phone: [phone] Determination of erythrocyte mean corpuscular volume (MCV)on 05-04-2021 MCV (RBC) [Entitic vol] 83.4 fL 80-94 [facility] Work Phone: [phone] Glucose Glucometer (BldC) [M ass/Vol]on 05-04-2021 Glucose [Mass/Vol] 126 mg/dL 74-106 [facility]: [phone] Comment on above: MANAGEMENT OF PATIEN T CARE PER NURSING PROTOCOL Gram stain for investigation of transfusion reactionon 05-04-2021 Microscopic observation Gram stain Nom (Unsp spec) [facility] Work Phone: [phone] Hematocrit Auto (Bld) [Volum e fraction]on 05-04-2021 Hematocrit (Bld) [Volume fraction] 26.1 % 40-54 [facility] Work Phone: [phone] Laboratory - Hematology and Cell countson 05-04-2021 Erythrocyte distribution width (RBC) [Entitic vol] 53.6 fL 35.1-43.9 [facility] Work Phone: [phone] Erythrocyte distribution width (RBC) [Ratio] 17.7 % 11.6-14.6 [facility] Work Phone: [phone] Immature granulocytes/100 WBC (Bld) 2.000 % 0.0-0.9 [facility] Work Phone: [phone] Comment on above: IG% - Immature Granu locytes (promyelocytes, myelocytes and metamyelocytes) > 1% indicates that a LEFT SHIFT is Present. MCH (RBC) [Entitic mass] 26.5 pg 27.0-32.0 [facility] Work Phone: [phone] Nucleated RBC/100 WBC (Bld) [Ratio] 0 % 0-5 [facility] Work Phone: [phone] MCHC Auto (RBC) [Mass/Vol]on 05-04-2021 MCHC (RBC) [Mass/Vol] 31.8 g/dL 32-36 [facility] Work Phone: No Panel Informationon 05-04 26.5 pg 27.0-32.0 [facility] Work Phone: [phone] 17.7 % 11.6-14.6 [facility] Work Phone: [phone] 53.6 fl 35.1-43.9 [facility] Work Phone: [phone] 2.000 % 0.0-0.9 [facility] Work Phone: [phone] 0 % 0-5 [facility] Work Phone: [phone] Platelets bldon 05-04-2021 Platelets (Bld) [#/Vol] 389 10*3/uL 150-450 [facility] Work Phone: [phone] Basophil percentageon 2021 Basophil percentage 45 mg/dL 74-106 [facility] Work Phone: [phone] Basophil percentage 4.6 g/dL 6.4-8.2 [facility] Work Phone: [phone] Basophil percentage 0.30 mg/dL 0.20-1.00 [facility] Work Phone: [phone] Basophil percentage 147 mmol/L 136-145 [facility] Work Phone: [phone] Basophil percentage 3.2 mmol/L 3.5-5.1 [facility] Work Phone: [phone] Basophil percentage 118 mmol/L 98-107 [facility] Work Phone: [phone] Bilirubin [Mass/Vol] 0.30 mg/dL 0.20-1.00 [facility] Work Phone: [phone] Comment on above: For patients on eltr ombopag therapy, use of Dimension [place] TBIL is not recommended. Chloride [Moles/Vol] 118 mmol/L 98-107 [facility] Work Phone: Glucose [Mass/Vol] 45 mg/dL 74-106 [facility] Work Phone: [phone] Comment on above: Glucose result less than 50 mg/dL suggests HYPOGLYCEMIA. Potassium [Moles/Vol] 3.2 mmol/L 3.5-5.1 [facility] Work Phone: Protein [Mass/Vol] 4.6 g/dL 6.4-8.2 [facility] Work Phone: Sodium [Moles/Vol] 147 mmol/L 136-145 [facility] Work Phone: Laboratory - Chemistry and C hemistry - challengeon 05-03-2021 ALP [Catalytic activity/Vol] 55 U/L 45-117 [facility] Work Phone: ALT [Catalytic activity/Vol] 23 U/L 16-61 [facility] Work Phone: CO2 [Moles/Vol] 23.0 mmol/L 21.0-32.0 [facility] Work Phone: Globulin (S) [Mass/Vol] 3.3 g/dL 2.2-4.2 [facility] Work Phone: Urea nitrogen/Creatinine [Mass ratio] 12.6 mg/mg 12-13 [facility] Work Phone: No Panel Informationon 05-03 Estimated Creatinine Clearance Calc 51.82 ml/min [facility] Work Phone: Estimated GFR (MDRD) Amer 67 mL/min >60 [facility] Work Phone: Comment on above: GFR Calc Estimated GFR (MDRD) Non-Af Amer 55 mL/min >60 [facility] Work Phone: Comment on above: Non- GFR Calc 55 mL/min >60 [facility] Work Phone: 67 mL/min >60 [facility] Work Phone: 51.82 ml/min [facility] Work Phone: 12.6 RATIO - [facility] Work Phone: 3.3 g/dL 2.2-4.2 [facility] Work Phone: 55 U/L 45-117 [facility] Work Phone: [phone] U/L 16-61 [facility] Work Phone: [phone] 23.0 mmol/L 21.0-32.0 [facility] Work Phone: [phone] Serum or plasma albumin yocasta urement (mass/volume)on 05-03-2021 Albumin [Mass/Vol] 1.3 g/dL 3.2-5.0 [facility] Work Phone: [phone] Serum or plasma albumin/glob ulin mass ratioon 05-03-2021 Albumin/Globulin [Mass ratio] 0.4 {ratio} 0.9-2.4 [facility] Work Phone: [phone] Serum or plasma calcium yocasta urement (mass/volume)on 05-03-2021 Calcium [Mass/Vol] 7.1 mg/dL 8.5-10.1 [facility] Work Phone: [phone] Serum or plasma creatinine m easurement (mass/volume)on 05-03-2021 Creatinine [Mass/Vol] 1.35 mg/dL 0.70-1.30 [facility] Work Phone: [phone] Comment on above: The validity of the calculated GFR & GFRAA in patients over 70 years has not been determined. Clinical correlation is essential. Serum or plasma urea nitroge n measurement (mass/volume)on 05-03-2021 Urea nitrogen [Mass/Vol] 17 mg/dL 7-18 [facility] Work Phone: [phone] Thin prep Papanicolaou smear with manual screeningon 05-03-2021 Thin prep Papanicolaou smear with manual screening 32 U/L 15-37 [facility] Work Phone: [phone] Thin prep Papanicolaou smear with manual screening 6 5-15 [facility] Work Phone: Basophil percentageon 2021 Basophil percentage 1.1 mmol/L 0.4-2.0 [facility] Work Phone: [phone] Lactate [Moles/Vol] 1.1 mmol/L 0.4-2.0 [facility] Work Phone: Blood santi cells detection b y light microscopyon 05-01-2021 Santi cells LM Ql (Bld) RARE [facility] Work Phone: Hemoglobin in reticulocytes (mass per reticulocyte)on 05-01-2021 Hemoglobin (Reticulocytes) [Entitic mass] 25.1 pg 30-35 [facility] Work Phone: Iron measurement (mass/mass) on 05-01-2021 Iron (Unsp spec) [Mass/Mass] 15 ug/dL 65-175 [facility] Work Phone: Laboratory - Chemistry and C hemistry - challengeon 05-01-2021 Cobalamin (Vitamin B12) [Mass/Vol] 1806 pg/mL 211-911 [facility] Work Phone: [phone] Laboratory - Coagulationon 0 05-01-2021 aPTT Coag (Bld) [Time] 72.5 s 24.1-36.2 [facility] Work Phone: Laboratory - Hematology and Cell countson 05-01-2021 Anisocytosis Ql (Bld) 1+ [facility] Work Phone: Laboratory - Microbiology an d Antimicrobial susceptibilityon 05-01-2021 Bacteria identified Cx Nom (Bld) No growth in 5 days. [facility] Work Phone: Lower GI hemoglobin IA Ql (S tl)on 05-01-2021 Stool Occult Blood (FOREST) Positive [facility] Work Phone: Stool gastrointestinal hemoglobin detection by immunologic method Positive [facility] Work Phone: No Panel Informationon 05-01 72.5 Seconds 24.1-36.2 [facility] Work Phone: No growth in 5 days. [facility] Work Phone: 1806 pg/mL 211-911 [facility] Work Phone: Streptococcus pneumoniae Antigen (M [facility] Work Phone: Immature Reticulocyte Fraction 33.10 % 3.00-15.90 [facility] Work Phone: Reticulocyte Count 1.72 % 0.5-1.5 [facility] Work Phone: Total Iron Binding Capacity 152 ug/dL 250-450 [facility] Work Phone: 1+ [facility] Work Phone: [phone] 1.72 % 0.5-1.5 [facility] Work Phone: 33.10 % 3.00-15.90 [facility] Work Phone: 152 ug/dL 250-450 [facility] Work Phone: Serum or plasma ferritin vasquez surement (mass/volume)on 05-01-2021 Ferritin [Mass/Vol] 544 ng/mL 26-388 [facility] Work Phone: Serum or plasma iron saturat ion measurement (mass fraction)on 05-01-2021 Iron saturation [Mass fraction] 9.9 % 15.0-55.0 [facility] Work Phone: INR in Blood by Coagulation assayon 04-30-2021 INR Coag (Bld) [Relative time] 2.7 {INR} [facility] Work Phone: Laboratory - Coagulationon 0 04-30-2021 PT Coag (PPP) [Time] 27.9 s 11.7-14.9 [facility] Work Phone: [phone] Panel Informationon 04-30 Methicillin-Resist S.aureus DNA PCR Negative Negative [facility] Work Phone: Negative Negative [facility] Work Phone: 27.9 SECONDS 11.7-14.9 [facility] Work Phone: Vancomycin troughon 05-01-19 Vancomycin trough [Mass/Vol] 10.5 ug/mL 5.0-15.0 [facility] Work Phone: Comment on above: VANCOMYCIN STANDARED DRUG THERAPY TROUGH LEVEL: 5.0 - 15.0 mg/L VANCOMYCIN HIGH INTENSITY THERAPY TROUGH LEVEL: 15.0 - 20.0 mg/L High Intensity therapy recommended for serious lifethreatening infections include:- Bcebbbvqfg-Dufmmjujipmo-Awupzhnjd (Ventilator/Healtcare Associated)-Sepsis PLEASE CONTACT PHARMACY SERVICES (#[id number]) FOR INTERPRETATIONOF RESULTS. Glucose Glucometer (BldC) [M ass/Vol]on 04-29-2021 Glucose [Mass/Vol] 103 mg/dL 74-106 [facility] Work Phone: Comment on above: MANAGEMENT OF PATIEN T CARE PER NURSING PROTOCOL Laboratory - Chemistry and C hemistry - challengeon 04-29-2021 Natriuretic peptide B (Bld) [Mass/Vol] 65.0 pg/mL 0-100 [facility] Work Phone: No Panel Informationon 04-29 Troponin I High Sensitivity 24 pg/mL 3.0-78.0 [facility] Work Phone: [phone] Comment on above: Please Note: New Nicole t Units and Gender Specific Reference Ranges. For more information see Policy Stat Procedure [place] High Sensitivity Troponin (TNIH) and attachments. 24 pg/mL 3.0-78.0 [facility] Work Phone: [phone] 65.0 pg/mL 0-100 [facility] Work Phone: Absolute lymphocyte counton 04-28-2021 Lymphocytes Auto (Unsp spec) [#/Vol] 0.59 10*3/uL 0.83-4.51 [facility] Work Phone: Basophil percentageon 2021 Basophil percentage 86 mg/dL 74-106 [facility] Work Phone: Basophil percentage 141 mmol/L 136-145 [facility] Work Phone: Basophil percentage 3.6 mmol/L 3.5-5.1 [facility] Work Phone: Basophil percentage 110 mmol/L 98-107 [facility] Work Phone: [phone] Basophils (Bld) [#/Vol] 4.6 10*3/uL 4.4-11.0 [facility] Work Phone: Basophils (Bld) [#/Vol] 3.6 10*3/uL 2.0-7.7 [facility] Work Phone: Basophils/100 WBC (Bld) 77.1 % 47-70 [facility] Work Phone: Basophils/100 WBC (Bld) 1.7 % 0-5 [facility] Work Phone: Basophils/100 WBC (Bld) 0.2 % 0-1 [facility] Work Phone: Chloride [Moles/Vol] 110 mmol/L 98-107 [facility] Work Phone: Eosinophils/100 WBC (Bld) 1.7 % 0-5 [facility] Work Phone: Glucose [Mass/Vol] 86 mg/dL 74-106 [facility] Work Phone: Neutrophils (Bld) [#/Vol] 3.6 10*3/uL 2.0-7.7 [facility] Work Phone: Neutrophils/100 WBC (Bld) 77.1 % 47-70 [facility] Work Phone: Potassium [Moles/Vol] 3.6 mmol/L 3.5-5.1 [facility] Work Phone: Sodium [Moles/Vol] 141 mmol/L 136-145 [facility] Work Phone: WBC (Bld) [#/Vol] 4.6 10*3/uL 4.4-11.0 [facility] Work Phone: Blood erythrocytes count (nu mber/volume)on 04-28-2021 RBC (Bld) [#/Vol] 3.73 10*6/uL 4.6-6.2 [facility]: Blood hemoglobin measurement (mass/volume)on 03-05-2022 Hemoglobin (Bld) [Mass/Vol] 9.7 g/dL 13.0-16.5 [facility] Work Phone: Blood lymphocytes/100 leukoc yteson 04-28-2021 Lymphocytes/100 WBC (Bld) 12.8 % 19-41 [facility] Work Phone: Blood monocytes/100 leukocyt eson 04-28-2021 Monocytes/100 WBC (Bld) 7.6 % 0-10 [facility] Work Phone: Blood platelet mean volumeon 04-28-2021 Platelet mean volume (Bld) [Entitic vol] 10.5 fL 6.2-12.0 [facility] Work Phone: Determination of erythrocyte mean corpuscular volume (MCV)on 04-28-2021 MCV (RBC) [Entitic vol] 82.6 fL 80-94 [facility] Work Phone: Hematocrit Auto (Bld) [Volum e fraction]on 04-28-2021 Hematocrit (Bld) [Volume fraction] 30.8 % 40-54 [facility] Work Phone: Laboratory - Chemistry and C hemistry - challengeon 04-28-2021 CO2 [Moles/Vol] 24.0 mmol/L 21.0-32.0 [facility] Work Phone: Urea nitrogen/Creatinine [Mass ratio] 18.7 mg/mg 10-20 [facility] Work Phone: Laboratory - Hematology and Cell countson 04-28-2021 Anisocytosis Ql (Bld) 1+ [facility] Work Phone: Erythrocyte distribution width (RBC) [Entitic vol] 50.5 fL 35.1-43.9 [facility] Work Phone: Erythrocyte distribution width (RBC) [Ratio] 17.1 % 11.6-14.6 [facility] Work Phone: Immature granulocytes/100 WBC (Bld) 0.600 % 0.0-0.9 [facility] Work Phone: Comment on above: IG% - Immature Granu locytes (promyelocytes, myelocytes and metamyelocytes) > 1% indicates that a LEFT SHIFT is Present. MCH (RBC) [Entitic mass] 26.0 pg 27.0-32.0 [facility] Work Phone: Nucleated RBC/100 WBC (Bld) [Ratio] 0 % 0-5 [facility] Work Phone: Laboratory - Microbiology an d Antimicrobial susceptibilityon 04-28-2021 Bacteria identified Cx Nom (Bld) No growth in 5 days. [facility] Work Phone: MCHC Auto (RBC) [Mass/Vol]on 04-28-2021 MCHC (RBC) [Mass/Vol] 31.5 g/dL 32-36 [facility] Work Phone: No Panel Informationon 04-28 Acanthocytes RARE [facility] Work Phone: Estimated Creatinine Clearance Calc 45.13 ml/min [facility] Work Phone: [phone] Estimated GFR (MDRD) Amer 57 mL/min >60 [facility] Work Phone: Comment on above: GFR Calc Estimated GFR (MDRD) Non-Af Amer 47 mL/min >60 [facility] Work Phone: Comment on above: Non- GFR Calc 26.0 pg 27.0-32.0 [facility] Work Phone: 17.1 % 11.6-14.6 [facility] Work Phone: 50.5 fl 35.1-43.9 [facility] Work Phone: 0.600 % 0.0-0.9 [facility] Work Phone: 0 % 0-5 [facility] Work Phone: 1+ [facility] Work Phone: RARE [facility] Work Phone: 47 mL/min >60 [facility] Work Phone: 57 mL/min >60 [facility] Work Phone: [phone] 45.13 ml/min [facility] Work Phone: [phone] 18.7 RATIO 10-20 [facility] Work Phone: 24.0 mmol/L 21.0-32.0 [facility] Work Phone: [phone] No growth in [address] [facility] Work Phone: [phone] Ovalocyte detectionon 2021 Ovalocytes LM Ql (Bld) RARE [facility] Work Phone: [phone] Platelets bldon 04-28-2021 Platelets (Bld) [#/Vol] 247 10*3/uL 150-450 [facility] Work Phone: [phone] Serum or plasma calcium yocasta urement (mass/volume)on 04-28-2021 Calcium [Mass/Vol] 8.9 mg/dL 8.5-10.1 [facility] Work Phone: Serum or plasma creatinine m easurement (mass/volume)on 04-28-2021 Creatinine [Mass/Vol] 1.55 mg/dL 0.70-1.30 [facility] Work Phone: [phone] Comment on above: The validity of the calculated GFR & GFRAA in patients over 70 years has not been determined. Clinical correlation is essential. Serum or plasma urea nitroge n measurement (mass/volume)on 04-28-2021 Urea nitrogen [Mass/Vol] 29 mg/dL 7-18 [facility] Work Phone: Thin prep Papanicolaou smear with manual screeningon 04-28-2021 Thin prep Papanicolaou smear with manual screening 7 5-15 [facility] Work Phone: Absolute lymphocyte counton 04-26-2021 Lymphocytes Auto (Unsp spec) [#/Vol] 0.62 10*3/uL 0.83-4.51 [facility] Work Phone: Amorphous sediment detection in urine sediment by light microscopyon 04-26-2021 Amorphous sediment LM Ql (Urine sed) 1+ [facility] Work Phone: Basophil percentageon 2021 Basophil percentage 92 mg/dL 74-106 [facility] Work Phone: Basophil percentage 2.5 mg/dL 2.5-4.9 [facility] Work [facility]: Basophil percentage 138 mmol/L 136-145 [facility] Work Phone: Basophil percentage 3.4 mmol/L 3.5-5.1 [facility] Work Phone: Basophil percentage 108 mmol/L 98-107 [facility] Work Phone: Basophils (Bld) [#/Vol] 5.2 10*3/uL 4.4-11.0 [facility] Work Phone: Basophils (Bld) [#/Vol] 4.0 10*3/uL 2.0-7.7 [facility] Work Phone: Basophils/100 WBC (Bld) 77.3 % 47-70 [facility] Work Phone: Basophils/100 WBC (Bld) 1.3 % 0-5 [facility] Work Phone: Basophils/100 WBC (Bld) 0.2 % 0-1 [facility] Work Phone: Chloride [Moles/Vol] 108 mmol/L 98-107 [facility]: Eosinophils/100 WBC (Bld) 1.3 % 0-5 [facility] Work Phone: Glucose [Mass/Vol] 92 mg/dL 74-106 [facility] Work Phone: Neutrophils (Bld) [#/Vol] 4.0 10*3/uL 2.0-7.7 [facility] Work Phone: Neutrophils/100 WBC (Bld) 77.3 % 47-70 [facility] Work Phone: Potassium [Moles/Vol] 3.4 mmol/L 3.5-5.[address] [facility] Work Phone: Sodium [Moles/Vol] 138 mmol/L 136-145 [facility] Work Phone: WBC (Bld) [#/Vol] 5.2 10*3/uL 4.4-11.0 [facility] Work Phone: Basophil percentage 0-5 SEEN /hpf [facility] Work Phone: Bilirubin Test strip Ql (U)o n 04-26-2021 Bilirubin Ql (U) Negative Negative [facility] Work Phone: Blood erythrocytes count (nu mber/volume)on 04-26-2021 RBC (Bld) [#/Vol] 3.82 10*6/uL 4.6-6.2 [facility] Work Phone: Blood hemoglobin measurement (mass/volume)on 04-26-2021 Hemoglobin (Bld) [Mass/Vol] 9.5 g/dL 13.0-16.5 [facility] Work Phone: Blood lymphocytes/100 leukoc yteson 04-26-2021 Lymphocytes/100 WBC (Bld) 11.9 % 19-41 [facility] Work Phone: Blood monocytes/100 leukocyt eson 04-26-2021 Monocytes/100 WBC (Bld) 8.5 % 0-10 [facility] Work Phone: Blood platelet mean volumeon 04-26-2021 Platelet mean volume (Bld) [Entitic vol] 10.2 fL 6.2-12.0 [facility] Work Phone: Determination of erythrocyte mean corpuscular volume (MCV)on 04-26-2021 MCV (RBC) [Entitic vol] 80.9 fL 80-94 [facility] Work Phone: Glucose Glucometer (BldC) [M ass/Vol]on 04-26-2021 Glucose [Mass/Vol] 238 mg/dL 74-106 [facility] Work Phone: Comment on above: MANAGEMENT OF PATIEN T CARE PER NURSING PROTOCOL Hematocrit Auto (Bld) [Volum e fraction]on 04-26-2021 Hematocrit (Bld) [Volume fraction] 30.9 % 40-54 [facility] Work Phone: Ketones Test strip Ql (U)on 04-26-2021 Ketones Ql (U) Negative Negative [facility] Work Phone: Laboratory - Chemistry and C hemistry - challengeon 04-26-2021 CO2 [Moles/Vol] 26.0 mmol/L 21.0-32.0 [facility] Work Phone: [phone] Magnesium [Mass/Vol] 1.6 mg/dL 1.6-2.6 [facility] Work Phone: [phone] Urea nitrogen/Creatinine [Mass ratio] 16.3 mg/mg 10-20 [facility] Work Phone: Laboratory - Hematology and Cell countson 04-26-2021 Erythrocyte distribution width (RBC) [Entitic vol] 48.0 fL 35.1-43.9 [facility] Work Phone: Erythrocyte distribution width (RBC) [Ratio] 16.5 % 11.6-14.6 [facility] Work Phone: Immature granulocytes/100 WBC (Bld) 0.800 % 0.0-0.9 [facility] Work Phone: Comment on above: IG% - Immature Granu locytes (promyelocytes, myelocytes and metamyelocytes) > 1% indicates that a LEFT SHIFT is Present. MCH (RBC) [Entitic mass] 24.9 pg 27.0-32.0 [facility] Work Phone: Nucleated RBC/100 WBC (Bld) [Ratio] 0 % 0-5 [facility] Work Phone: MCHC Auto (RBC) [Mass/Vol]on 04-26-2021 MCHC (RBC) [Mass/Vol] 30.7 g/dL 32-36 [facility] Work Phone: Comment on above: Delta: 32.4 on 04/25-0550 Mucus LM Ql (Urine sed)on Mucus Ql (Urine sed) 0 SEEN /hpf [facility] Work Phone: Nitrite Test strip Ql (U)on 04-26-2021 Nitrite Ql (U) Negative Negative [facility] Work Phone: [phone] No Panel Informationon 04-26 Estimated Creatinine Clearance Calc 51.82 ml/min [facility] Work Phone: Estimated GFR (MDRD) Amer 67 mL/min >60 [facility] Work Phone: [phone] Comment on above: GFR Calc Estimated GFR (MDRD) Non-Af Amer 55 mL/min >60 [facility] Work Phone: [phone] Comment on above: Non- GFR Calc 24.9 pg 27.0-32.0 [facility] Work Phone: 16.5 % 11.6-14.6 [facility] Work Phone: 48.0 fl 35.1-43.9 [facility] Work Phone: 0.800 % 0.0-0.9 [facility] Work Phone: 0 % 0-5 [facility] Work Phone: 55 mL/min >60 [facility] Work Phone: [phone] 67 mL/min >60 [facility] Work Phone: [phone] 51.82 ml/min [facility] Work Phone: 16.3 RATIO 10-20 [facility] Work Phone: 1.6 mg/dL 1.6-2.6 [facility] Work Phone: 26.0 mmol/L 21.0-32.0 [facility] Work Phone: Platelets bldon 04-26-2021 Platelets (Bld) [#/Vol] 190 10*3/uL 150-450 [facility] Work Phone: Protein Test strip Ql (U)on 04-26-2021 Protein Ql (U) 30 mg/dl Negative [facility] Work Phone: Serum or plasma calcium yocasta urement (mass/volume)on 04-26-2021 Calcium [Mass/Vol] 7.8 mg/dL 8.5-10.1 [facility] Work Phone: Serum or plasma creatinine m easurement (mass/volume)on 04-26-2021 Creatinine [Mass/Vol] 1.35 mg/dL 0.70-1.30 [facility] Work Phone: Comment on above: The validity of the calculated GFR & GFRAA in patients over 70 years has not been determined. Clinical correlation is essential. Serum or plasma urea nitroge n measurement (mass/volume)on 04-26-2021 Urea nitrogen [Mass/Vol] 22 mg/dL 7-18 [facility] Work Phone: Squamous epithelial cells de tection in urine sediment by light microscopyon 04-26-2021 Epithelial cells.squamous LM Ql (Urine sed) 0 SEEN /hpf [facility] Work Phone: Thin prep Papanicolaou smear with manual screeningon 04-26-2021 Thin prep Papanicolaou smear with manual screening 4 5-15 [facility] Work Phone: Urine blood detectionon - RBC Ql (U) 25 /ul Negative [facility] Work Phone: [phone] RBC Ql (U) 0-5 SEEN /hpf [facility] Work Phone: Urine clarityon 04-26-2021 Clarity (U) Clear Clear [facility] Work Phone: Urine color determinationon 04-26-2021 Color (U) Yellow Yellow [facility] Work Phone: Urine glucose detectionon Glucose Ql (U) Normal mg/dl Normal [facility] Work Phone: [phone] Urine leukocyte esterase det ection by dipstickon 04-26-2021 Leukocyte esterase Test strip Ql (U) Negative Negative [facility] Work Phone: [phone] Urine pHon 04-26-2021 pH (U) 6.0 [pH] [facility] Work Phone: Urine sediment bacteria coun t by microscopy (number/high power field)on 04-26-2021 Bacteria LM.HPF (Urine sed) [#/Area] 2 /[HPF] None Seen [facility] Work Phone: Urine sediment yeast count b y microscopy (number/high powered field)on 04-26-2021 Yeast LM.HPF (Urine sed) [#/Area] 2 /[HPF] None Seen [facility] Work Phone: [phone] Urine specific gravity measu rementon 04-26-2021 Specific gravity (U) [Rel density] 1.010 [facility] Work Phone: [phone] Urobilinogen Auto test strip Ql (U)on 04-26-2021 Urobilinogen Ql (U) Normal mg/dl Normal [facility] Work Phone: Blood manual differential co mment interpretation (narrative result)on 04-25-2021 Manual differential comment Sohan (Bld) [Interp] SCANNED [facility] Work Phone: Comment on above: LYMPHOPENIA NOTED Serum or plasma vancomycin m easurement (mass/volume)on 04-25-2021 Vancomycin [Mass/Vol] 17.8 ug/mL 0.0-15.0 [facility] Work Phone: Comment on above: VANCOMYCIN STANDARD DRUG THERAPY: CRITICAL VALUE IS > 15.0 mg/L VANCOMYCIN HIGH INTENSITY THERAPY: CRITICAL VALUE IS > 20.0 mg/L PLEASE CONTACT PHARMACY SERVICES (#[id number]) FOR INTERPRETATIONOF RESULTS. THIS RESULT DOES NOT REPRESENT A PEAK OR TROUGHLEVEL FOR THIS DRUG. Vancomycin troughon 04-23-19 Vancomycin trough [Mass/Vol] 21.6 ug/mL 5.0-15.0 [facility] Work Phone: Comment on above: VANCOMYCIN STANDARED DRUG THERAPY TROUGH LEVEL: 5.0 - 15.0 mg/L VANCOMYCIN HIGH INTENSITY THERAPY TROUGH LEVEL: 15.0 - 20.0 mg/L High Intensity therapy recommended for serious lifethreatening infections include:- Uswbahsjsw-Rguvodosrsww-Apaepsnsj (Ventilator/Healtcare Associated)-Sepsis PLEASE CONTACT PHARMACY SERVICES (#[id number]) FOR INTERPRETATIONOF RESULTS. Basophil percentageon 2021 Basophil percentage 5.1 g/dL 6.4-8.2 [facility] Work Phone: [phone] Basophil percentage 0.70 mg/dL 0.20-1.00 [facility] Work Phone: [phone] Bilirubin [Mass/Vol] 0.70 mg/dL 0.20-1.00 [facility] Work Phone: [phone] Comment on above: For patients on eltr ombopag therapy, use of Dimension [place] TBIL is not recommended. Protein [Mass/Vol] 5.1 g/dL 6.4-8.2 [facility] Work Phone: [phone] Laboratory - Chemistry and C hemistry - challengeon 04-22-2021 Natriuretic peptide B (Bld) [Mass/Vol] 80.0 pg/mL 0-100 [facility] Work Phone: [phone] ALP [Catalytic activity/Vol] 63 U/L 45-117 [facility] Work Phone: [phone] ALT [Catalytic activity/Vol] 22 U/L 16-61 [facility] Work Phone: [phone] Globulin (S) [Mass/Vol] 3.1 g/dL 2.2-4.2 [facility] Work Phone: [phone] Laboratory - Microbiology an d Antimicrobial susceptibilityon 04-22-2021 Bacteria identified Cx Nom (Bld) No growth in 5 days. [facility] Work Phone: [phone] No Panel Informationon 04-22 Troponin I High Sensitivity 20 pg/mL 3.0-78.0 [facility] Work Phone: [phone] Comment on above: Please Note: New Nicole t Units and Gender Specific Reference Ranges. For more information see Policy Stat Procedure [place] High Sensitivity Troponin (TNIH) and attachments. 20 pg/mL 3.0-78.0 [facility] Work Phone: [phone] 80.0 pg/mL 0-100 [facility] Work Phone: [phone] [facility]: [phone] 3.1 g/dL 2.2-4.2 [facility] Work Phone: U/L 45-117 [facility] Work Phone: [phone] 22 U/L 16-61 [facility] Work Phone: [phone] Serum or plasma albumin yocasta urement (mass/volume)on 04-22-2021 Albumin [Mass/Vol] 2.0 g/dL 3.2-5.0 [facility] Work Phone: [phone] Serum or plasma albumin/glob ulin mass ratioon 04-22-2021 Albumin/Globulin [Mass ratio] 0.6 {ratio} 0.9-2.4 [facility] Work Phone: Serum procalcitonin measurem enton 04-22-2021 Procalcitonin [Mass/Vol] 0.13 ng/mL 0.00-0.09 [facility] Work Phone: Comment on above: A [...] smear with manual screening 15 U/L 15-37 [facility] Work Phone: Bacteria identified Cx Nom ( U)on 04-21-2021 Culture, urine Yeast, not Elisha albicans [facility] Work Phone: [phone] Culture, urine Positive [facility] Work Phone: [phone] Blood platelet adequacy dete ction by light microscopyon 04-21-2021 Platelets LM Ql (Bld) ADEQUATE ADEQ [facility] Work Phone: [phone] Culture, urineon 04-21-2021 Bacteria identified Cx Nom (U) Yeast, not Elisha albicans [facility] Work Phone: [phone] Bacteria identified Cx Nom (U) Positive [facility] Work Phone: [phone] RBC morphologyon 04-21-2021 RBC morphology finding Nom (Bld) NORM C+C NORMAL NORM C&C [facility] Work Phone: [phone] Absolute lymphocyte counton 04-11-2021 Lymphocytes Auto (Unsp spec) [#/Vol] 0.50 10*3/uL 0.83-4.51 [facility] Work Phone: Basophil percentageon 2021 Basophil percentage 171 mg/dL 74-106 [facility] Work Phone: [phone] Basophil percentage 5.8 g/dL 6.4-8.2 [facility] Work Phone: [phone] Basophil percentage 0.30 mg/dL 0.20-1.00 [facility] Work Phone: Basophil percentage 135 mmol/L 136-145 [facility] Work Phone: Basophil percentage 3.8 mmol/L 3.5-5.1 [facility] Work Phone: Basophil percentage 103 mmol/L 98-107 [facility] Work Phone: Basophils (Bld) [#/Vol] 6.9 10*3/uL 4.4-11.0 [facility] Work Phone: Basophils (Bld) [#/Vol] 5.7 10*3/uL 2.0-7.7 [facility] Work Phone: Basophils/100 WBC (Bld) 83.4 % 47-70 [facility] Work Phone: Basophils/100 WBC (Bld) 0.1 % 0-5 [facility] Work Phone: Basophils/100 WBC (Bld) 0.3 % 0-1 [facility] Work Phone: Bilirubin [Mass/Vol] 0.30 mg/dL 0.20-1.00 [facility] Work Phone: Comment on above: For patients on eltr ombopag therapy, use of Dimension [place] TBIL is not recommended. Chloride [Moles/Vol] 103 mmol/L 98-107 [facility] Work Phone: Eosinophils/100 WBC (Bld) 0.1 % 0-5 [facility] Work Phone: Glucose [Mass/Vol] 171 mg/dL 74-106 [facility] Work Phone: Comment on above: Fasting Glucose resu lt greater than or equal to 126 mg/dL suggests DIABETES MELLITUS per A.D.A. criteria. Neutrophils (Bld) [#/Vol] 5.7 10*3/uL 2.0-7.7 [facility] Work Phone: Neutrophils/100 WBC (Bld) 83.4 % 47-70 [facility] Work Phone: Potassium [Moles/Vol] 3.8 mmol/L 3.5-5.1 [facility] Work Phone: Protein [Mass/Vol] 5.8 g/dL 6.4-8.2 [facility] Work Phone: Sodium [Moles/Vol] 135 mmol/L 136-145 [facility] Work Phone: WBC (Bld) [#/Vol] 6.9 10*3/uL 4.4-11.0 [facility] Work Phone: Blood erythrocytes count (nu mber/volume)on 04-11-2021 RBC (Bld) [#/Vol] 3.99 10*6/uL 4.6-6.2 [facility] Work Phone: Blood hemoglobin measurement (mass/volume)on 04-11-2021 Hemoglobin (Bld) [Mass/Vol] 10.2 g/dL 13.0-16.5 [facility] Work Phone: Blood lymphocytes/100 leukoc yteson 04-11-2021 Lymphocytes/100 WBC (Bld) 7.3 % 19-41 [facility] Work Phone: Blood manual differential co mment interpretation (narrative result)on 04-11-2021 Manual differential comment Sohan (Bld) [Interp] SCANNED [facility] Work Phone: Comment on above: LYMPHOPENIA NOTED Blood monocytes/100 leukocyt eson 04-11-2021 Monocytes/100 WBC (Bld) 7.7 % 0-10 [facility] Work Phone: Blood platelet mean volumeon 04-11-2021 Platelet mean volume (Bld) [Entitic vol] 11.3 fL 6.2-12.0 [facility] Work Phone: Determination of erythrocyte mean corpuscular volume (MCV)on 04-11-2021 MCV (RBC) [Entitic vol] 75.9 fL 80-94 [facility] Work Phone: Glucose Glucometer (BldC) [M ass/Vol]on 04-11-2021 Glucose [Mass/Vol] 162 mg/dL 70-110 [facility] Work Phone: Comment on above: MANAGEMENT OF PATIEN T CARE PER NURSING PROTOCOL Hematocrit Auto (Bld) [Volum e fraction]on 04-11-2021 Hematocrit (Bld) [Volume fraction] 30.3 % 40-54 [facility] Work Phone: Laboratory - Chemistry and C hemistry - challengeon 04-11-2021 ALP [Catalytic activity/Vol] 62 U/L 45-117 [facility] Work Phone: [phone] ALT [Catalytic activity/Vol] 29 U/L 16-61 [facility] Work Phone: [phone] CO2 [Moles/Vol] 24.0 mmol/L 21.0-32.0 [facility] Work Phone: [phone] Globulin (S) [Mass/Vol] 3.5 g/dL 2.2-4.2 [facility] Work Phone: [phone] Magnesium [Mass/Vol] 1.8 mg/dL 1.6-2.6 [facility] Work Phone: [phone] Urea nitrogen/Creatinine [Mass ratio] 33.3 mg/mg 10-20 [facility] Work Phone: [phone] Laboratory - Hematology and Cell countson 04-11-2021 Erythrocyte distribution width (RBC) [Entitic vol] 43.0 fL 35.1-43.9 [facility] Work Phone: [phone] Erythrocyte distribution width (RBC) [Ratio] 15.9 % 11.6-14.6 [facility] Work Phone: [phone] Immature granulocytes/100 WBC (Bld) 1.200 % 0.0-0.9 [facility] Work Phone: [phone] Comment on above: IG% - Immature Granu locytes (promyelocytes, myelocytes and metamyelocytes) > 1% indicates that a LEFT SHIFT is Present. MCH (RBC) [Entitic mass] 25.6 pg 27.0-32.0 [facility] Work Phone: [phone] Nucleated RBC/100 WBC (Bld) [Ratio] 0 % 0-5 [facility] Work Phone: [phone] MCHC Auto (RBC) [Mass/Vol]on 04-11-2021 MCHC (RBC) [Mass/Vol] 33.7 g/dL 32-36 [facility] Work Phone: No Panel Informationon 04-11 Estimated Creatinine Clearance Calc 86.37 ml/min [facility] Work Phone: Estimated GFR (MDRD) Amer 121 mL/min >60 [facility] Work Phone: Comment on above: GFR Calc Estimated GFR (MDRD) Non-Af Amer 100 mL/min >60 [facility] Work Phone: Comment on above: Non- GFR Calc 25.6 pg 27.0-32.0 [facility] Work Phone: 15.9 % 11.6-14.6 [facility] Work Phone: 43.0 fl 35.1-43.9 [facility] Work Phone: 1.200 % 0.0-0.9 [facility] Work Phone: 0 % 0-5 [facility] Work Phone: 100 mL/min >60 [facility] Work Phone: 121 mL/min >60 [facility] Work Phone: 86.37 ml/min [facility] Work Phone: 33.3 RATIO 10-20 [facility] Work Phone: 3.5 g/dL 2.2-4.2 [facility] Work Phone: 62 U/L 45-117 [facility] Work Phone: 29 U/L 16-61 [facility] Work Phone: 1.8 mg/dL 1.6-2.6 [facility] Work Phone: 24.0 mmol/L 21.0-32.0 [facility] Work Phone: Platelets bldon 04-11-2021 Platelets (Bld) [#/Vol] 295 10*3/uL 150-450 [facility] Work Phone: Serum or plasma albumin yocasta urement (mass/volume)on 04-11-2021 Albumin [Mass/Vol] 2.3 g/dL 3.2-5.0 [facility] Work Phone: Serum or plasma albumin/glob ulin mass ratioon 04-11-2021 Albumin/Globulin [Mass ratio] 0.7 {ratio} 0.9-2.4 [facility] Work Phone: Serum or plasma calcium yocasta urement (mass/volume)on 04-11-2021 Calcium [Mass/Vol] 8.2 mg/dL 8.5-10.1 [facility] Work Phone: Serum or plasma creatinine m easurement (mass/volume)on 04-11-2021 Creatinine [Mass/Vol] 0.81 mg/dL 0.70-1.30 [facility] Work Phone: Comment on above: The validity of the calculated GFR & GFRAA in patients over 70 years has not been determined. Clinical correlation is essential. Serum or plasma urea nitroge n measurement (mass/volume)on 04-11-2021 Urea nitrogen [Mass/Vol] 27 mg/dL 7-18 [facility] Work Phone: Thin prep Papanicolaou smear with manual screeningon 04-11-2021 Thin prep Papanicolaou smear with manual screening 14 U/L 15-37 [facility] Work Phone: Thin prep Papanicolaou smear with manual screening 8 5-15 [facility] Work Phone: Review by pathologiston 03-27 Pathologist review Sohan (Unsp spec) [Interp] Reviewed [facility] Work Phone: Comment on above: Previous reported re sult: Josephine hair Edited by: ROSETTA on 04/11/21:940LymphopeniaMicrocytic anemia.Clinical correlation suggested.Andrea Porter D.O. 04/11/21 AMENDED REPORT 04/11/21 0941 PATH REV previously reported as: Josephine hair Bronchoalveolar lavage cultu re with Gram stainon 04-09-2021 Respiratory microbial culture or Staphylococcus aureus isolated. [facility] Work Phone: Gram stain for investigation of transfusion reactionon 04-09-2021 Microscopic observation Gram stain Nom (Unsp spec) [facility] Work Phone: Assessment of wrist artery p atency prior to arterial punctureon 04-08-2021 Arterial patency Wrist artery --pre arterial puncture Positive [facility] Work Phone: Base excesson 04-08-2021 Base excess Calc (BldV) [Moles/Vol] 0 mmol/L -2-2 [facility] Work Phone: Basophil percentageon 2021 Basophil percentage 2.2 mmol/L 0.4-2.0 [facility] Work Phone: Lactate [Moles/Vol] 2.2 mmol/L 0.4-2.0 [facility] Work Phone: Basophil percentage 23.5 mmol/L 22-26 [facility] Work Phone: Basophils/100 WBC (Bld) 90 % 95-99 [facility] Work Phone: Basophil percentage 0 SEEN /hpf [facility] Work Phone: Bilirubin Test strip Ql (U)o n 04-08-2021 Bilirubin Ql (U) Negative Negative [facility] Work Phone: CO2 (BldA) [Partial pressure ]on 04-08-2021 CO2 (Bld) [Partial pressure] 32.0 mm[Hg] 35-45 [facility] Work Phone: Ketones Test strip Ql (U)on 04-08-2021 Ketones Ql (U) Negative Negative [facility] Work Phone: Laboratory - Microbiology an d Antimicrobial susceptibilityon 04-08-2021 Bacteria identified Cx Nom (Bld) No growth in 5 days. [facility] Work Phone: Mucus LM Ql (Urine sed)on Mucus Ql (Urine sed) 0 SEEN /hpf [facility] Work Phone: Nitrite Test strip Ql (U)on 04-08-2021 Nitrite Ql (U) Negative Negative [facility] Work Phone: [phone] Panel Informationon 04-08 Blood Gas Liter Flow 5.0 /min [facility] Work Phone: [phone] Blood Gas Sample Site L Radial [facility] Work Phone: [phone] Blood Gas Specimen Type ART [facility] Work Phone: [phone] Blood Gas Total CO2 25 mmol/L [facility] Work Phone: [phone] Oxygen Delivery Device Cannula [facility] Work Phone: ART [facility] Work Phone: [phone] L Radial [facility] Work Phone: [phone] Cannula [facility] Work Phone: [phone] 5.0 /min [facility] Work Phone: [phone] 25 mmol/L [facility] Work Phone: [phone] D-Dimer Quantitative (PE/DVT) 6.86 FEU/ug/m 0.27-0.49 [facility] Work Phone: Comment on above: D-Dimer ELEVATED (>0 .49): Additional studies and clinicalassessments are indicated to conclude diagnosis of:Deep Vein Thrombosis (DVT) or Pulmonary Embolism (PE)CRITICAL VALUE VERIFIED. CALLED TO TARAH HARRIS04/08/21 141[employer].RESULTS READ BACK BY SAME . Troponin I High Sensitivity 16 pg/mL 3.0-78.0 [facility] Work Phone: Comment on above: Please Note: New Nicole t Units and Gender Specific Reference Ranges. For more information see Policy Stat Procedure [place] High Sensitivity Troponin (TNIH) and attachments. 6.86 FEU/ug/m 0.27-0.49 [facility] Work Phone: 16 pg/mL 3.0-78.0 [facility] Work Phone: [phone] No growth in 5 days. [facility] Work Phone: Oxygen (BldA) [Partial press ure]on 04-08-2021 Oxygen (Bld) [Partial pressure] 55 mmHG 75-100 [facility] Work Phone: Protein Test strip Ql (U)on 04-08-2021 Protein Ql (U) 30 mg/dl Negative [facility] Work Phone: Squamous epithelial cells de tection in urine sediment by light microscopyon 04-08-2021 Epithelial cells.squamous LM Ql (Urine sed) 0-5 SEEN /hpf [facility] Work Phone: Urine blood detectionon 03-27 RBC Ql (U) 10 /ul Negative [facility] Work Phone: RBC Ql (U) 0-5 SEEN /hpf [facility] Work Phone: Urine clarityon 04-08-2021 Clarity (U) Clear Clear [facility] Work Phone: Urine color determinationon 04-08-2021 Color (U) Yellow Yellow [facility] Work Phone: Urine glucose detectionon Glucose Ql (U) 250 mg/dl Normal [facility] Work Phone: Urine leukocyte esterase det ection by dipstickon 04-08-2021 Leukocyte esterase Test strip Ql (U) Negative Negative [facility] Work Phone: Urine pHon 04-08-2021 pH (U) 6.0 [pH] [facility] Work Phone: Urine sediment bacteria coun t by microscopy (number/high power field)on 04-08-2021 Bacteria LM.HPF (Urine sed) [#/Area] RARE /hpf None Seen [facility] Work Phone: Urine specific gravity measu rementon 04-08-2021 Specific gravity (U) [Rel density] 1.015 [facility] Work Phone: Urobilinogen Auto test strip Ql (U)on 04-08-2021 Urobilinogen Ql (U) Normal mg/dl Normal [facility] Work Phone: pH measurementon 04-08-2021 pH (Unsp spec) 7.47 [pH] 7.35-7.45 [facility] Work Phone: Absolute lymphocyte counton 04-05-2021 Lymphocytes Auto (Unsp spec) [#/Vol] 1.16 10*3/uL 0.83-4.51 [facility] Work Phone: Basophil percentageon 2021 Basophil percentage 418 mg/dL 74-106 [facility] Work Phone: Basophil percentage 6.5 g/dL 6.4-8.2 [facility] Work Phone: Basophil percentage 0.60 mg/dL 0.20-1.00 [facility] Work Phone: Basophil percentage 135 mmol/L 136-145 [facility] Work Phone: Basophil percentage 3.8 mmol/L 3.5-5.1 [facility] Work Phone: Basophil percentage 104 mmol/L 98-107 [facility] Work Phone: Basophils (Bld) [#/Vol] 3.7 10*3/uL 4.4-11.0 [facility] Work Phone: Basophils (Bld) [#/Vol] 2.2 10*3/uL 2.0-7.7 [facility] Work Phone: Basophils/100 WBC (Bld) 60.8 % 47-70 [facility] Work Phone: Basophils/100 WBC (Bld) 0.0 % 0-1 [facility] Work Phone: Blood erythrocytes count (nu mber/volume)on 04-05-2021 RBC (Bld) [#/Vol] 3.96 10*6/uL 4.6-6.2 [facility] Work Phone: Blood hemoglobin measurement (mass/volume)on 04-05-2021 Hemoglobin (Bld) [Mass/Vol] 10.3 g/dL 13.0-16.5 [facility] Work Phone: Blood lymphocytes/100 leukoc yteson 04-05-2021 Lymphocytes/100 WBC (Bld) 31.4 % 19-41 [facility] Work Phone: Blood monocytes/100 leukocyt eson 04-05-2021 Monocytes/100 WBC (Bld) 7.3 % 0-10 [facility] Work Phone: Blood platelet mean volumeon 04-05-2021 Platelet mean volume (Bld) [Entitic vol] 11.4 fL 6.2-12.0 [facility] Work Phone: Determination of erythrocyte mean corpuscular volume (MCV)on 04-05-2021 MCV (RBC) [Entitic vol] 82.3 fL 80-94 [facility] Work Phone: Hematocrit Auto (Bld) [Volum e fraction]on 04-05-2021 Hematocrit (Bld) [Volume fraction] 32.6 % 40-54 [facility] Work Phone: MCHC Auto (RBC) [Mass/Vol]on 04-05-2021 MCHC (RBC) [Mass/Vol] 31.6 g/dL 32-36 [facility] Work Phone: No Panel Informationon 04-05 26.0 pg 27.0-32.0 [facility] Work Phone: 15.7 % 11.6-14.6 [facility] Work Phone: 47.4 fl 35.1-43.9 [facility] Work Phone: 0.500 % 0.0-0.9 [facility] Work Phone: 0 % 0-5 [facility] Work Phone: 61 mL/min >60 [facility] Work Phone: [phone] 74 mL/min >60 [facility] Work Phone: 32.3 RATIO 10-20 [facility] Work Phone: [phone] 3.9 g/dL 2.2-4.2 [facility] Work Phone: [phone] 69 U/L 45-117 [facility] Work Phone: [phone] 36 U/L 16-61 [facility] Work Phone: [phone] 21.0 mmol/L 21.0-32.0 [facility] Work Phone: [phone] Platelets bldon 04-05-2021 Platelets (Bld) [#/Vol] 195 10*3/uL 150-450 [facility] Work Phone: [phone] Serum or plasma albumin yocasta urement (mass/volume)on 04-05-2021 Albumin [Mass/Vol] 2.6 g/dL 3.2-5.0 [facility] Work Phone: [phone] Serum or plasma albumin/glob ulin mass ratioon 04-05-2021 Albumin/Globulin [Mass ratio] 0.7 {ratio} 0.9-2.4 [facility] Work Phone: [phone] Serum or plasma calcium yocasta urement (mass/volume)on 04-05-2021 Calcium [Mass/Vol] 8.8 mg/dL 8.5-10.1 [facility] Work Phone: [phone] Serum or plasma creatinine m easurement (mass/volume)on 04-05-2021 Creatinine [Mass/Vol] 1.24 mg/dL 0.70-1.30 [facility] Work Phone: [phone] Serum or plasma urea nitroge n measurement (mass/volume)on 04-05-2021 Urea nitrogen [Mass/Vol] 40 mg/dL 7-18 [facility] Work Phone: [phone] Thin prep Papanicolaou smear with manual screeningon 04-05-2021 Thin prep Papanicolaou smear with manual screening 26 U/L 15-37 [facility] Work Phone: [phone] Thin prep Papanicolaou smear with manual screening 10 5-15 [facility] Work Phone: Absolute lymphocyte counton 03-25-2021 Lymphocytes Auto (Unsp spec) [#/Vol] 0.90 10*3/uL 0.83-4.51 [facility] Work Phone: Basophil percentageon 2021 Basophil percentage 252 mg/dL 74-106 [facility] Work Phone: Basophil percentage 5.5 g/dL 6.4-8.2 [facility] Work Phone: Basophil percentage 0.30 mg/dL 0.20-1.00 [facility] Work Phone: Basophil percentage 136 mmol/L 136-145 [facility] Work Phone: Basophil percentage 4.3 mmol/L 3.5-5.1 [facility] Work Phone: Basophil percentage 105 mmol/L 98-107 [facility] Work Phone: Basophils (Bld) [#/Vol] 15.1 10*3/uL 4.4-11.0 [facility] Work Phone: Basophils (Bld) [#/Vol] 12.4 10*3/uL 2.0-7.7 [facility] Work Phone: Basophils/100 WBC (Bld) 82.3 % 47-70 [facility] Work Phone: Basophils/100 WBC (Bld) 0.1 % 0-1 [facility] Work Phone: Blood erythrocytes count (nu mber/volume)on 03-25-2021 RBC (Bld) [#/Vol] 3.59 10*6/uL 4.6-6.2 [facility] Work Phone: Blood hemoglobin measurement (mass/volume)on 03-25-2021 Hemoglobin (Bld) [Mass/Vol] 9.3 g/dL 13.0-16.5 [facility] Work Phone: Blood lymphocytes/100 leukoc yteson 03-25-2021 Lymphocytes/100 WBC (Bld) 6.0 % 19-41 [facility] Work Phone: Blood monocytes/100 leukocyt eson 03-25-2021 Monocytes/100 WBC (Bld) 8.8 % 0-10 [facility] Work Phone: Blood platelet mean volumeon 03-25-2021 Platelet mean volume (Bld) [Entitic vol] 10.8 fL 6.2-12.0 [facility] Work Phone: Determination of erythrocyte mean corpuscular volume (MCV)on 03-25-2021 MCV (RBC) [Entitic vol] 81.1 fL 80-94 [facility] Work Phone: [phone] Glucose Glucometer (BldC) [M ass/Vol]on 03-25-2021 Glucose [Mass/Vol] 389 mg/dL 70-110 [facility] Work Phone: [phone] Hematocrit Auto (Bld) [Volum e fraction]on 03-25-2021 Hematocrit (Bld) [Volume fraction] 29.1 % 40-54 [facility] Work Phone: MCHC Auto (RBC) [Mass/Vol]on 03-25-2021 MCHC (RBC) [Mass/Vol] 32.0 g/dL 32-36 [facility] Work Phone: [phone] No Panel Informationon 03-25 25.9 pg 27.0-32.0 [facility] Work Phone: 15.7 % 11.6-14.6 [facility] Work Phone: 45.5 fl 35.1-43.9 [facility] Work Phone: 2.700 % 0.0-0.9 [facility] Work Phone: 0 % 0-5 [facility] Work Phone: 119 mL/min >60 [facility] Work Phone: [phone] 144 mL/min >60 [facility] Work Phone: [phone] 72.16 ml/min [facility] Work Phone: [phone] 50.4 RATIO 10-20 [facility] Work Phone: [phone] 3.1 g/dL 2.2-4.2 [facility] Work Phone: [phone] 63 U/L 45-117 [facility] Work Phone: [phone] 22 U/L 16-61 [facility] Work Phone: [phone] 24.0 mmol/L 21.0-32.0 [facility] Work Phone: [phone] Platelets bldon 03-25-2021 Platelets (Bld) [#/Vol] 312 10*3/uL 150-450 [facility] Work Phone: [phone] Serum or plasma albumin yocasta urement (mass/volume)on 03-25-2021 Albumin [Mass/Vol] 2.4 g/dL 3.2-5.0 [facility] Work Phone: [phone] Serum or plasma albumin/glob ulin mass ratioon 03-25-2021 Albumin/Globulin [Mass ratio] 0.8 {ratio} 0.9-2.4 [facility] Work Phone: [phone] Serum or plasma calcium yocasta urement (mass/volume)on 03-25-2021 Calcium [Mass/Vol] 8.6 mg/dL 8.5-10.1 [facility] Work Phone: [phone] Serum or plasma creatinine m easurement (mass/volume)on 03-25-2021 Creatinine [Mass/Vol] 0.69 mg/dL 0.70-1.30 [facility] Work Phone: [phone] Serum or plasma urea nitroge n measurement (mass/volume)on 03-25-2021 Urea nitrogen [Mass/Vol] 35 mg/dL 7-18 [facility] Work Phone: [phone] Thin prep Papanicolaou smear with manual screeningon 03-25-2021 Thin prep Papanicolaou smear with manual screening 5 U/L 15-37 [facility] Work Phone: Thin prep Papanicolaou smear with manual screening 7 5-15 [facility] Work Phone: No Panel Informationon 03-24 1.9 mg/dL 1.6-2.6 [facility] Work Phone: Blood band neutrophil count as percentage of total leukocyteson 03-23-2021 Band form neutrophils/100 WBC (Bld) 4 % 0-5 [facility] Work Phone: Blood lymphocytes/100 leukoc yteson 03-23-2021 Lymphocytes/100 WBC (Bld) 7 % 19-41 [facility] Work Phone: Blood metamyelocytes/100 dangelo kocyteson 03-23-2021 Metamyelocytes/100 WBC (Bld) 3 % 0-1 [facility] Work Phone: Blood monocytes/100 leukocyt eson 03-23-2021 Monocytes/100 WBC (Bld) 7 % 0-10 [facility] Work Phone: Blood platelet adequacy dete ction by light microscopyon 03-23-2021 Platelets LM Ql (Bld) ADEQUATE ADEQ [facility] Work Phone: Blood segmented neutrophils/ 100 leukocyteson 03-23-2021 Segmented neutrophils/100 WBC (Bld) 79 % 47-70 [facility] Work Phone: RBC morphologyon 03-23-2021 RBC morphology finding Nom (Bld) NORM C+C NORMAL NORM C&C [facility] Work Phone: Review by pathologiston 02-25 Pathologist review Sohan (Unsp spec) [Interp] Reviewed [facility] Work Phone: Total cell counton Cells counted Molgen (Bld/Tiss) [#] 100 MANUAL DIFF [facility] Work Phone: Basophil percentageon 2021 Basophil percentage 1.7 mmol/L 0.4-2.0 [facility] Work Phone: Blood manual differential co mment interpretation (narrative result)on 03-22-2021 Manual differential comment Sohan (Bld) [Interp] SCANNED [facility] Work Phone: No Panel Informationon 03-22 429 mg/dl 203-444 [facility] Work Phone: 1.02 FEU/ug/m 0.27-0.49 [facility] Work Phone: [phone] 24 U/L 39-308 [facility] Work Phone: [phone] 14 pg/mL 3.0-78.0 [facility] Work Phone: [phone] 87.9 pg/mL 0-100 [facility] Work Phone: No growth in 5 days. [facility] Work Phone: [phone] Serum or plasma C reactive p rotein measurement (mass/volume)on 03-22-2021 CRP [Mass/Vol] 9.08 mg/L 0.0-3.0 [facility] Work Phone: Serum procalcitonin measurem enton 03-22-2021 Procalcitonin [Mass/Vol] 0.16 ng/mL 0.00-0.09 [facility] Work Phone: Thin prep Papanicolaou smear with manual screeningon 03-22-2021 Thin prep Papanicolaou smear with manual screening 188 U/L 87-241 [facility] Work Phone: Absolute lymphocyte counton 03-14-2021 Lymphocytes Auto (Unsp spec) [#/Vol] 1.11 10*3/uL 0.83-4.51 [facility] Work Phone: Basophil percentageon 2021 Basophil percentage 246 mg/dL 74-106 [facility] Work Phone: Basophil percentage 6.7 g/dL 6.4-8.2 [facility] Work Phone: Basophil percentage 0.40 mg/dL 0.20-1.00 [facility] Work Phone: Basophil percentage 140 mmol/L 136-145 [facility] Work Phone: [phone] Basophil percentage 4.0 mmol/L 3.5-5.1 [facility] Work Phone: Basophil percentage 107 mmol/L 98-107 [facility] Work Phone: Basophil percentage 1.7 mmol/L 0.4-2.0 [facility] Work Phone: Basophils (Bld) [#/Vol] 8.2 10*3/uL 4.4-11.0 [facility] Work Phone: Basophils (Bld) [#/Vol] 5.4 10*3/uL 2.0-7.7 [facility] Work Phone: Basophils/100 WBC (Bld) 66.0 % 47-70 [facility] Work Phone: Basophils/100 WBC (Bld) 5.5 % 0-5 [facility] Work Phone: Basophils/100 WBC (Bld) 0.6 % 0-1 [facility] Work Phone: Blood erythrocytes count (nu mber/volume)on 03-14-2021 RBC (Bld) [#/Vol] 4.05 10*6/uL 4.6-6.2 [facility] Work Phone: Blood hemoglobin measurement (mass/volume)on 03-14-2021 Hemoglobin (Bld) [Mass/Vol] 10.4 g/dL 13.0-16.5 [facility] Work Phone: Blood lymphocytes/100 leukoc yteson 03-14-2021 Lymphocytes/100 WBC (Bld) 13.6 % 19-41 [facility] Work Phone: Blood monocytes/100 leukocyt eson 03-14-2021 Monocytes/100 WBC (Bld) 13.6 % 0-10 [facility] Work Phone: Blood platelet mean volumeon 03-14-2021 Platelet mean volume (Bld) [Entitic vol] 10.1 fL 6.2-12.0 [facility] Work Phone: [phone] Determination of erythrocyte mean corpuscular volume (MCV)on 03-14-2021 MCV (RBC) [Entitic vol] 84.2 fL 80-94 [facility] Work Phone: [phone] Hematocrit Auto (Bld) [Volum e fraction]on 03-14-2021 Hematocrit (Bld) [Volume fraction] 34.1 % 40-54 [facility] Work Phone: [phone] MCHC Auto (RBC) [Mass/Vol]on 03-14-2021 MCHC (RBC) [Mass/Vol] 30.5 g/dL 32-36 [facility] Work Phone: [phone] Panel Informationon 03-14 25.7 pg 27.0-32.0 [facility] Work Phone: [phone] 14.8 % 11.6-14.6 [facility] Work Phone: [phone] 45.6 fl 35.1-43.9 [facility] Work Phone: [phone] 0.700 % 0.0-0.9 [facility] Work Phone: [phone] 0 % 0-5 [facility] Work Phone: [phone] 1.44 FEU/ug/m 0.27-0.49 [facility] Work Phone: [phone] 99 mL/min >60 [facility] Work Phone: [phone] mL/min >60 [facility] Work Phone: [phone] 88.00 ml/min [facility] Work Phone: [phone] 24.5 RATIO 10-20 [facility] Work Phone: [phone] 3.7 g/dL 2.2-4.2 [facility] Work Phone: [phone] 10 pg/mL 3.0-78.0 [facility] Work Phone: 80 U/L 45-117 [facility] Work Phone: [phone] 22 U/L 16-61 [facility] Work Phone: [phone] 26.0 mmol/L 21.0-32.0 [facility] Work Phone: [phone] SARS-CoV-2 (COVID 19) [facility] Work Phone: [phone] No growth in 5 days. [facility] Work Phone: [phone] Platelets bldon 03-14-2021 Platelets (Bld) [#/Vol] 384 10*3/uL 150-450 [facility] Work Phone: [phone] Serum or plasma albumin yocasta urement (mass/volume)on 03-14-2021 Albumin [Mass/Vol] 3.0 g/dL 3.2-5.0 [facility] Work Phone: [phone] Serum or plasma albumin/glob ulin mass ratioon 03-14-2021 Albumin/Globulin [Mass ratio] 0.8 {ratio} 0.9-2.4 [facility] Work Phone: [phone] Serum or plasma calcium yocasta urement (mass/volume)on 03-14-2021 Calcium [Mass/Vol] 8.9 mg/dL 8.5-10.1 [facility] Work Phone: [phone] Serum or plasma creatinine m easurement (mass/volume)on 03-14-2021 Creatinine [Mass/Vol] 0.82 mg/dL 0.70-1.30 [facility] Work Phone: [phone] Serum or plasma urea nitroge n measurement (mass/volume)on 03-14-2021 Urea nitrogen [Mass/Vol] 20 mg/dL 7-18 [facility] Work Phone: [phone] Thin prep Papanicolaou smear with manual screeningon 03-14-2021 Thin prep Papanicolaou smear with manual screening 10 U/L 15-37 [facility] Work Phone: [phone] Thin prep Papanicolaou smear with manual screening 7 5-15 [facility] Work Phone: Absolute lymphocyte counton 02-05-2021 Lymphocytes Auto (Unsp spec) [#/Vol] 1.91 10*3/uL 0.83-4.51 [facility] Work Phone: Basophil percentageon 2020 Basophil percentage 92 mg/dL 74-106 [facility] Work Phone: Basophil percentage 6.7 g/dL 6.4-8.2 [facility] Work Phone: Basophil percentage 0.40 mg/dL 0.20-1.00 [facility] Work Phone: Basophil percentage 101 mg/dL <200 [facility] Work Phone: Basophil percentage 80 mg/dL [facility] Work Phone: Basophil percentage 139 mmol/L 136-145 [facility] Work Phone: Basophil percentage 4.1 mmol/L 3.5-5.1 [facility] Work Phone: Basophil percentage 107 mmol/L 98-107 [facility] Work Phone: Basophils (Bld) [#/Vol] 8.9 10*3/uL 4.4-11.0 [facility] Work Phone: Basophils (Bld) [#/Vol] 5.0 10*3/uL 2.0-7.7 [facility] Work Phone: Basophils/100 WBC (Bld) 5.9 % 0-5 [facility] Work Phone: Blood erythrocytes count (nu mber/volume)on 02-05-2021 RBC (Bld) [#/Vol] 3.94 10*6/uL 4.6-6.2 [facility] Work Phone: Blood hemoglobin measurement (mass/volume)on 02-05-2021 Hemoglobin (Bld) [Mass/Vol] 10.6 g/dL 13.0-16.5 [facility] Work Phone: Blood lymphocytes/100 leukoc yteson 02-05-2021 Lymphocytes/100 WBC (Bld) 21.5 % 19-41 [facility] Work Phone: Blood monocytes/100 leukocyt eson 02-05-2021 Monocytes/100 WBC (Bld) 14.4 % 0-10 [facility] Work Phone: Blood platelet mean volumeon 02-05-2021 Platelet mean volume (Bld) [Entitic vol] 11.1 fL 6.2-12.0 [facility] Work Phone: Determination of erythrocyte mean corpuscular volume (MCV)on 02-05-2021 MCV (RBC) [Entitic vol] 83.5 fL 80-94 [facility] Work Phone: Hematocrit Auto (Bld) [Volum e fraction]on 02-05-2021 Hematocrit (Bld) [Volume fraction] 32.9 % 40-54 [facility] Work Phone: Laboratory - Hematology and Cell countson 02-05-2021 Basophils/100 WBC (Unsp spec) 0.8 % 0-1 [facility] Work Phone: MCHC Auto (RBC) [Mass/Vol]on 02-05-2021 MCHC (RBC) [Mass/Vol] 32.2 g/dL 32-36 [facility] Work Phone: No Panel Informationon 02-05 26.9 pg 27.0-32.0 [facility] Work Phone: 14.5 % 11.6-14.6 [facility] Work Phone: 44.3 fl 35.1-43.9 [facility] Work Phone: [phone] 56.5 % 47-70 [facility] Work Phone: 0.900 % 0.0-0.9 [facility] Work Phone: [phone] 0 % 0-5 [facility] Work Phone: 114 mL/min >60 [facility] Work Phone: 138 mL/min >60 [facility] Work Phone: 20.7 RATIO 10-20 [facility] Work Phone: 3.6 g/dL 2.2-4.2 [facility] Work Phone: 93 U/L 45-117 [facility] Work Phone: 19 U/L 16-61 [facility] Work Phone: [phone] 25.0 mmol/L 21.0-32.0 [facility] Work Phone: 1.9 pg/mL 2.18-3.98 [facility] Work Phone: 0.92 uIU/mL 0.358-3.74 [facility] Work Phone: 0.92 ng/mL 0.00-4.00 [facility] Work Phone: 1.28 ng/dL 0.76-1.46 [facility] Work Phone: [phone] 27.1 ng/mL [facility] Work Phone: Platelets bldon 02-05-2021 Platelets (Bld) [#/Vol] 374 10*3/uL 150-450 [facility] Work Phone: [phone] Serum or plasma albumin yocasta urement (mass/volume)on 02-05-2021 Albumin [Mass/Vol] 3.1 g/dL 3.2-5.0 [facility] Work Phone: Serum or plasma albumin/glob ulin mass ratioon 02-05-2021 Albumin/Globulin [Mass ratio] 0.9 {ratio} 0.9-2.4 [facility] Work Phone: Serum or plasma calcium yocasta urement (mass/volume)on 02-05-2021 Calcium [Mass/Vol] 8.7 mg/dL 8.5-10.1 [facility] Work Phone: Serum or plasma cholesterol in HDL measurement (mass/volume)on 02-05-2021 Cholesterol in HDL [Mass/Vol] 35 mg/dL [facility] Work Phone: Serum or plasma cholesterol in VLDL measurement (mass/volume)on 02-05-2021 Cholesterol in VLDL [Mass/Vol] 16 mg/dL 5-40 [facility] Work Phone: [phone] Serum or plasma creatinine m easurement (mass/volume)on 02-05-2021 Creatinine [Mass/Vol] 0.72 mg/dL 0.70-1.30 [facility] Work Phone: Serum or plasma low density lipoprotein (LDL) cholesterol measurement (mass/volume)on 02-05-2021 Cholesterol in LDL [Mass/Vol] 50 mg/dL 0-130 [facility] Work Phone: Serum or plasma urea nitroge n measurement (mass/volume)on 02-05-2021 Urea nitrogen [Mass/Vol] 15 mg/dL 7-18 [facility] Work Phone: Thin prep Papanicolaou smear with manual screeningon 02-05-2021 Thin prep Papanicolaou smear with manual screening 13 U/L 15-37 [facility] Work Phone: Thin prep Papanicolaou smear with manual screening 7 5-15 [facility] Work Phone: CNOVSPon 01-12-2019 CNOVS Visit (SP) Office ([facility]) JAYDON ALONZO ([id number]) 1950 M Date Time Provider Department 01/12/19 [...] signs of GI bleeding however. 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 [...] leg. SKIN: No jaundice or rash. NEUROLOGIC: lead software tester II-XII are grossly intact. 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 Normal 30.3-565.7 [facility] Comment on above: Result Comment: Acco unt Credited Iron and TIBCon 01-12-2019 Iron [Mass/Vol] Test sent to [facility]. Normal 41-186 [facility] Comment on above: Result Comment: Acco unt Credited TIBC Test sent to [facility]. Normal 232-386 [facility] Comment on above: Result Comment: Acco unt Credited Transferrin Saturatn Test sent to [facility]. Normal 15-57 [facility] Comment on above: Result Comment: Acco unt Credited PROGRESSon 01-12-2019 PROGRESS HNO ID: [id number] Author: Jaydon Mcconnell Service: ? Author Type: [...] signs of GI bleeding however. 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 [...] leg. SKIN: No jaundice or rash. NEUROLOGIC: lead software tester II-XII are grossly intact. No focal motor [...] to his satisfaction. Jaydon Mcconnell, DO Normal [facility] CBCon 01-12-2019 Erythrocyte distribution width (RBC) [Ratio] 17.9 % High 11.5-15.0 [facility] Hematocrit (Bld) [Volume fraction] 36.4 % Low 39.0-51.0 [facility] Hemoglobin (Bld) [Mass/Vol] 12.0 g/dL Low 13.0-17.0 [facility] MCH (RBC) [Entitic mass] 27.3 pg Normal 26.0-34.0 [facility] MCHC (RBC) [Mass/Vol] 33.0 g/dL Normal 30.5-36.0 [facility] MCV (RBC) [Entitic vol] 82.7 fL Normal 80.0-100.[address] [facility] Platelet mean volume (Bld) [Entitic vol] 10.1 fL Normal 9.0-12.7 [facility] Comment on above: Result Comment: Test performed by: [facility] Shonna, [address] [place] [address] [address] [place] [address]. RBC (Bld) [#/Vol] 4.40 10*6/uL Normal 4.20-6.00 [facility] WBC (Bld) [#/Vol] 6.72 10*3/uL Normal 3.70-11.00 [facility] Platelet Cnt 289 k/uL Normal 150-400 [facility] Bronchoalveolar lavage cultu re with Gram stain Respiratory Culture Citrobacter freundii [facility] Work Phone: Respiratory microbial culture or Staphylococcus aureus isolated. [facility] Work Phone: Culture, urine Bacteria identified Cx Nom (U) Positive [facility] Work Phone: Gram stain for investigation of transfusion reaction Microscopic observation Gram stain Nom (Unsp spec) [facility] Work Phone: Influenza virus A and B and SARS-CoV-2 (COVID-19) Ag panel - Upper respiratory specim SARS-CoV-2 (COVID-19) RNA JUSTIN+probe Ql (Resp) [facility] Work Phone: Laboratory - Microbiology an d Antimicrobial susceptibility Bacteria identified Cx Nom (Bld) No growth in 5 days. [facility] Work Phone: Respiratory pathogens DNA and RNA 12b panel JUSTIN+probe (Unsp spec) [facility] Work Phone: Lower GI hemoglobin IA Ql (S tl) Stool Occult Blood (FOREST) Positive [facility] Work Phone: Microbial respiratory cultur e Bacteria identified Respiratory culture Nom (Unsp spec) or Staphylococcus aureus isolated. [facility] Work Phone: No Panel Information Respiratory Panel (PCR) Rhinovirus [facility] Work Phone: SARS-CoV-2 & FLU Antigen (Rapid) [facility] Work Phone: Streptococcus pneumoniae Antigen (M [facility] Work Phone: Urine Legionella pneumophila antigen detection L. pneumophila Ag Ql (U) [facility] Work Phone: Vital Signs Date Time Vital Sign Value Performing Clinician Facility 07-20-2024 14:48-0400 Body height 180.[address] Donna Will MD Work Phone: [facility] 07-20-2024 14:48-0400 Body temperature 98.2 [degF] Dr. Donna Will MD Work Phone: [facility] 07-20-2024 14:48-0400 Diastolic blood pressure 58 mm[Hg] Dr. Donna Will MD Work Phone: [facility] 07-20-2024 14:48-0400 Heart rate 80 /min Dr. Dnona Will MD Work Phone: [facility] 07-20-2024 14:48-0400 Inhaled oxygen flow rate 4 L/min Dr. Donna Will MD Work Phone: [facility] 07-20-2024 14:48-0400 Respiratory rate 18 /min Dr. Donna Will MD Work Phone: [facility] 07-20-2024 14:48-0400 SaO2% (BldA) [Mass fraction] 99 % Dr. Donna Will MD Work Phone: [facility] 07-20-2024 14:48-0400 Systolic blood pressure 112 mm[Hg] Dr. Donna Will MD Work Phone: [facility] 07-08-2024 17:00-0400 Body temperature 97.8 [degF] Dr. Donna Will MD Work Phone: [facility] 07-08-2024 17:00-0400 Diastolic blood pressure 78 mm[Hg] Dr. Donna Will MD Work Phone: [facility] 07-08-2024 17:00-0400 Heart rate 79 /min Dr. Donna Will MD Work Phone: [facility] 07-08-2024 17:00-0400 Respiratory rate 19 /min Dr. Donna Will MD Work Phone: [facility] 07-08-2024 17:00-0400 SaO2% (BldA) [Mass fraction] 100 % Dr. Donna Will MD Work Phone: [facility] 07-08-2024 17:00-0400 Systolic blood pressure 121 mm[Hg] Dr. Donna Will MD Work Phone: [facility] 07-08-2024 16:00-0400 Inhaled oxygen flow rate 4 L/min Dr. Donna Will MD Work Phone: [facility] 07-08-2024 12:29-0400 Body height 180.[address] Donna Will MD Work Phone: [facility] 06-30-2024 10:14-0400 Body mass index (BMI) [Ratio] 30.5 kg/m2 Dr. Donna Will MD Work Phone: [facility] 06-30-2024 10:14-0400 Body temperature 98.2 [degF] Dr. Donna Will MD Work Phone: [facility] 06-30-2024 10:140400 Body weight 99.[address] Donna Will MD Work Phone: [facility] 06-30-2024 10:14-0400 Diastolic blood pressure 61 mm[Hg] Dr. Donna Will MD Work Phone: [facility] 06-30-2024 10:14-0400 Heart rate 73 /min Dr. Donna Will MD Work Phone: [facility] 06-30-2024 10:140400 Inhaled oxygen flow rate 4 L/min Dr. Donna Will MD Work Phone: [facility] 06-30-2024 10:140400 Respiratory rate 16 /min Dr. Donna Will MD Work Phone: [facility] 06-30-2024 10:14-0400 SaO2% (BldA) [Mass fraction] 92 % Dr. Donna Will MD Work Phone: [facility] 06-30-2024 10:14-0400 Systolic blood pressure 123 mm[Hg] Dr. Donna Will MD Work Phone: [facility] 06-25-2024 12:27-0400 Body temperature 97.9 [degF] Dr. Donna Will MD Work Phone: [facility] 06-25-2024 12:27-0400 Diastolic blood pressure 72 mm[Hg] Dr. Donna Will MD Work Phone: [facility] 06-25-2024 12:27-0400 Heart rate 98 /min Dr. Donna Will MD Work Phone: [facility] 06-25-2024 12:27-0400 Inhaled oxygen flow rate 3 L/min Dr. Donna Will MD Work Phone: [facility] 06-25-2024 12:27-0400 Respiratory rate 18 /min Dr. Donna Will MD Work Phone: [facility] 06-25-2024 12:27-0400 SaO2% (BldA) [Mass fraction] 91 % Dr. Donna Will MD Work Phone: [facility] 06-25-2024 12:27-0400 Systolic blood pressure 118 mm[Hg] Dr. Donna Will MD Work Phone: [facility] 06-25-2024 07:04-0400 Inhaled oxygen concentration 30 % Dr. Donna Will MD Work Phone: [facility] 06-25-2024 03:41-0400 Body mass index (BMI) [Ratio] 30.3 kg/m2 Dr. Donna Will MD Work Phone: [facility] 06-25-2024 03:41-0400 Body weight 98.[address] Donna iWll MD Work Phone: [facility] 06-21-2024 09:20-0400 Body height 180.[address] Donna Will MD Work Phone: [facility] 05-27-2024 15:19-0400 Body temperature 98.4 [degF] Dr. Donna Will MD Work Phone: [facility] 05-27-2024 15:19-0400 Diastolic blood pressure 64 mm[Hg] Dr. Donna Will MD Work Phone: [facility] 05-27-2024 15:19-0400 Heart rate 61 /min Dr. Donna Will MD Work Phone: [facility] 05-27-2024 15:19-0400 Respiratory rate 18 /min Dr. Donna Will MD Work Phone: [facility] 05-27-2024 15:19-0400 SaO2% (BldA) [Mass fraction] 100 % Dr. Donna Will MD Work Phone: [facility] 05-27-2024 15:19-0400 Systolic blood pressure 120 mm[Hg] Dr. Donna Will MD Work Phone: [facility] 05-20-2024 12:45-0400 Body mass index (BMI) [Ratio] 28.8 kg/m2 Dr. Donna Will MD Work Phone: [facility] 05-20-2024 12:45-0400 Body weight 93.[address] Donna Will MD Work Phone: [facility] 05-20-2024 12:45-0400 Inhaled oxygen flow rate 5 L/min Dr. Donna Will MD Work Phone: [facility] 05-18-2024 13:09-0400 Body mass index (BMI) [Ratio] 28.7 kg/m2 Dr. Donna Will MD Work Phone: [facility] 05-18-2024 13:09-0400 Body temperature 97.4 [degF] Dr. Donna Will MD Work Phone: [facility] 05-18-2024 13:09-0400 Body weight 93.[address] Donna Will MD Work Phone: [facility] 05-18-2024 13:09-0400 Diastolic blood pressure 58 mm[Hg] Dr. Donna Will MD Work Phone: [facility] 05-18-2024 13:09-0400 Heart rate 44 /min Dr. Donna Will MD Work Phone: [facility] 05-18-2024 13:09-0400 Inhaled oxygen flow rate 4 L/min Dr. Donna Will MD Work Phone: [facility] 05-18-2024 13:09-0400 Respiratory rate 20 /min Dr. Donna Will MD Work Phone: [facility] 05-18-2024 13:09-0400 SaO2% (BldA) [Mass fraction] 94 % Dr. Donna Will MD Work Phone: [facility] 05-18-2024 13:09-0400 Systolic blood pressure 110 mm[Hg] Dr. Donna Will MD Work Phone: [facility] 04-27-2024 13:52-0500 Body mass index (BMI) [Ratio] 30.7 kg/m2 Dr. Donna Will MD Work Phone: [facility] 04-27-2024 13:52-0500 Body temperature 97.6 [degF] Dr. Donna Will MD Work Phone: [facility] 04-27-2024 13:52-0500 Body weight 99.[address] Donna Will MD Work Phone: [facility] 04-27-2024 13:52-0500 Diastolic blood pressure 68 mm[Hg] Dr. Donna Will MD Work Phone: [facility] 04-27-2024 13:52-0500 Heart rate 77 /min Dr. Donna Will MD Work Phone: [facility] 04-27-2024 13:52-0500 Inhaled oxygen flow rate 4 L/min Dr. Donna Will MD Work Phone: [facility] 04-27-2024 13:52-0500 Respiratory rate 18 /min Dr. Donna Will MD Work Phone: [facility] 04-27-2024 13:52-0500 SaO2% (BldA) [Mass fraction] 92 % Dr. Donna Will MD Work Phone: [facility] 04-27-2024 13:52-0500 Systolic blood pressure 121 mm[Hg] Dr. Donna Will MD Work Phone: [facility] 04-08-2024 10:46-0500 Heart rate 71 /min Dr. Donna Will MD Work Phone: [facility] 04-08-2024 10:46-0500 Respiratory rate 18 /min Dr. Donna Will MD Work Phone: [facility] 04-08-2024 07:59-0500 Body temperature 97.8 [degF] Dr. Donna Will MD Work Phone: [facility] 04-08-2024 07:59-0500 Diastolic blood pressure 79 mm[Hg] Dr. Donna Will MD Work Phone: [facility] 04-08-2024 07:59-0500 Inhaled oxygen flow rate 4 L/min Dr. Donna Will MD Work Phone: [facility] 04-08-2024 07:59-0500 SaO2% (BldA) [Mass fraction] 98 % Dr. Donna Will MD Work Phone: [facility] 04-08-2024 07:59-0500 Systolic blood pressure 132 mm[Hg] Dr. Donna Will MD Work Phone: [facility] 04-08-2024 05:23-0500 Body mass index (BMI) [Ratio] 30.4 kg/m2 Dr. Donna Will MD Work Phone: [facility] 04-08-2024 05:23-0500 Body weight 99.[address] Donna Will MD Work Phone: [facility] 03-16-2024 11:38-0500 Body mass index (BMI) [Ratio] 28.8 kg/m2 Dr. Donna Will MD Work Phone: [facility] 03-16-2024 11:38-0500 Body weight 98.[address] Donna Will MD Work Phone: [facility] 03-16-2024 11:38-0500 Diastolic blood pressure 59 mm[Hg] Dr. Donna Will MD Work Phone: [facility] 03-16-2024 11:38-0500 Heart rate 76 /min Dr. Donna Will MD Work Phone: [facility] 03-16-2024 11:38-0500 Inhaled oxygen flow rate 4 L/min Dr. Donna Will MD Work Phone: [facility] 03-16-2024 11:38-0500 Respiratory rate 18 /min Dr. Donna Will MD Work Phone: [facility] 03-16-2024 11:38-0500 SaO2% (BldA) [Mass fraction] 85 % Dr. Donna Will MD Work Phone: [facility] 03-16-2024 11:38-0500 Systolic blood pressure 101 mm[Hg] Dr. Donna Will MD Work Phone: [facility] 03-05-2024 12:25-0500 Body mass index (BMI) [Ratio] 28.8 kg/m2 Dr. Donna Will MD Work Phone: [facility] 03-05-2024 12:25-0500 Body temperature 97.4 [degF] Dr. Donna Will MD Work Phone: [facility] 03-05-2024 12:25-0500 Body weight 98.[address] Donna Will MD Work Phone: [facility] 03-05-2024 12:25-0500 Diastolic blood pressure 64 mm[Hg] Dr. Donna Will MD Work Phone: [facility] 03-05-2024 12:25-0500 Heart rate 84 /min Dr. Donna Will MD Work Phone: [facility] 03-05-2024 12:25-0500 Inhaled oxygen flow rate 4 L/min Dr. Donna Will MD Work Phone: [facility] 03-05-2024 12:25-0500 Respiratory rate 28 /min Dr. Donna Will MD Work Phone: [facility] 03-05-2024 12:25-0500 SaO2% (BldA) [Mass fraction] 90 % Dr. Donna Will MD Work Phone: [facility] 03-05-2024 12:25-0500 Systolic blood pressure 103 mm[Hg] Dr. Donna Will MD Work Phone: [facility] 03-03-2024 11:13-0500 Inhaled oxygen flow rate 4 L/min Dr. Donna Will MD Work Phone: [facility] 03-03-2024 11:13-0500 SaO2% (BldA) [Mass fraction] 92 % Dr. Donna Will MD Work Phone: [facility] 03-03-2024 10:02-0500 Body mass index (BMI) [Ratio] 28.8 kg/m2 Dr. Donna Will MD Work Phone: [facility] 03-03-2024 10:02-0500 Body temperature 98.2 [degF] Dr. Donna Will MD Work Phone: [facility] 03-03-2024 10:02-0500 Body weight 98.[address] Donna Will MD Work Phone: [facility] 03-03-2024 10:02-0500 Diastolic blood pressure 68 mm[Hg] Dr. Donna Will MD Work Phone: [facility] 03-03-2024 10:02-0500 Heart rate 83 /min Dr. Donna Will MD Work Phone: [facility] 03-03-2024 10:02-0500 Respiratory rate 20 /min Dr. Donna Will MD Work Phone: [facility] 03-03-2024 10:02-0500 Systolic blood pressure 117 mm[Hg] Dr. Donna Will MD Work Phone: [facility] 06-05-2023 10:30-0400 Diastolic blood pressure 58 mm[Hg] Dr. Donna Will Work Phone: [facility] 06-05-2023 10:30-0400 Heart rate 69 /min Dr. Donna Will Work Phone: [facility] 06-05-2023 10:30-0400 Inhaled oxygen flow rate 5 L/min Dr. Donna Will Work Phone: [facility] 06-05-2023 10:30-0400 Respiratory rate 18 /min Dr. Donna Will Work Phone: [facility] 06-05-2023 10:30-0400 SaO2% (BldA) [Mass fraction] 94 % Dr. Donna Will Work Phone: [facility] 06-05-2023 10:30-0400 Systolic blood pressure 128 mm[Hg] Dr. Donna Will Work Phone: [facility] 06-05-2023 08:45-0400 Body height 180.[address] Donna Will Work Phone: [facility] 06-05-2023 08:45-0400 Body mass index (BMI) [Ratio] 33.3 kg/m2 Dr. Donna Will Work Phone: [facility] 06-05-2023 08:45-0400 Body temperature 96.5 [degF] Dr. Donna Will Work Phone: [facility] 06-05-2023 08:45-0400 Body weight 108.[address] Donna Will Work Phone: [facility] 05-28-2023 10:58-0400 Body mass index (BMI) [Ratio] 33.4 kg/m2 Dr. Donna Will Work Phone: [facility] 05-28-2023 10:58-0400 Body temperature 97.6 [degF] Dr. Donna Will Work Phone: [facility] 05-28-2023 10:58-0400 Body weight 108.[address] Donna Will Work Phone: [facility] 05-28-2023 10:58-0400 Diastolic blood pressure 64 mm[Hg] Dr. Donna Will Work Phone: [facility] 05-28-2023 10:58-0400 Heart rate 81 /min Dr. Donna Will Work Phone: [facility] 05-28-2023 10:58-0400 Inhaled oxygen flow rate 2 L/min Dr. Donna Will Work Phone: [facility] 05-28-2023 10:58-0400 Respiratory rate 18 /min Dr. Donna Will Work Phone: [facility] 05-28-2023 10:58-0400 SaO2% (BldA) [Mass fraction] 90 % Dr. Donna Will Work Phone: [facility] 05-28-2023 10:58-0400 Systolic blood pressure 111 mm[Hg] Dr. Donna Will Work Phone: [facility] 05-12-2023 10:29-0400 Body height 180.[address] Donna Will Work Phone: [facility] 05-12-2023 10:29-0400 Body mass index (BMI) [Ratio] 33.2 kg/m2 Dr. Donna Will Work Phone: [facility] 05-12-2023 10:29-0400 Body weight 107.[address] Donna Will Work Phone: [facility] 05-12-2023 10:29-0400 Diastolic blood pressure 73 mm[Hg] Dr. Donna Will Work Phone: [facility] 05-12-2023 10:29-0400 Heart rate 83 /min Dr. Donna Will Work Phone: [facility] 05-12-2023 10:29-0400 Inhaled oxygen flow rate 4 L/min Dr. Donna Will Work Phone: [facility] 05-12-2023 10:29-0400 Respiratory rate 20 /min Dr. Donna Will Work Phone: [facility] 05-12-2023 10:29-0400 SaO2% (BldA) [Mass fraction] 94 % Dr. Donna Will Work Phone: [facility] 05-12-2023 10:29-0400 Systolic blood pressure 118 mm[Hg] Dr. Donna Will Work Phone: [facility] 05-09-2023 14:09-0400 Body temperature 97.2 [degF] Dr. Donna Will Work Phone: [facility] 05-09-2023 14:09-0400 Diastolic blood pressure 75 mm[Hg] Dr. Donna Will Work Phone: [facility] 05-09-2023 14:09-0400 Heart rate 80 /min Dr. Donna Will Work Phone: [facility] 05-09-2023 14:09-0400 Inhaled oxygen flow rate 4 L/min Dr. Donna Will Work Phone: [facility] 05-09-2023 14:09-0400 Respiratory rate 16 /min Dr. Donna Will Work Phone: [facility] 05-09-2023 14:09-0400 SaO2% (BldA) [Mass fraction] 98 % Dr. Donna Will Work Phone: [facility] 05-09-2023 14:09-0400 Systolic blood pressure 132 mm[Hg] Dr. Donna Will Work Phone: [facility] 05-09-2023 09:04-0400 Body mass index (BMI) [Ratio] 32.9 kg/m2 Dr. Donna Will Work Phone: [facility] 05-09-2023 09:04-0400 Body weight 107.[address] Donna Will Work Phone: [facility] 05-07-2023 11:10-0400 Body mass index (BMI) [Ratio] 32.8 kg/m2 Dr. Donna Will Work Phone: [facility] 05-07-2023 11:10-0400 Body temperature 98.3 [degF] Dr. Donna Will Work Phone: [facility] 05-07-2023 11:10-0400 Body weight 106.[address] Donna Will Work Phone: [facility] 05-07-2023 11:10-0400 Diastolic blood pressure 71 mm[Hg] Dr. Donna Will Work Phone: [facility] 05-07-2023 11:10-0400 Heart rate 83 /min Dr. Donna Will Work Phone: [facility] 05-07-2023 11:10-0400 Inhaled oxygen flow rate 2 L/min Dr. Donna Will Work Phone: [facility] 05-07-2023 11:10-0400 Respiratory rate 18 /min Dr. Donna Will Work Phone: [facility] 05-07-2023 11:10-0400 SaO2% (BldA) [Mass fraction] 91 % Dr. Donna Will Work Phone: [facility] 05-07-2023 11:10-0400 Systolic blood pressure 117 mm[Hg] Dr. Donna Will Work Phone: [facility] 03-27-2023 11:35-0500 Body temperature 97.5 [degF] Dr. Donna Will Work Phone: [facility] 03-27-2023 11:35-0500 Diastolic blood pressure 60 mm[Hg] Dr. Donna Will Work Phone: [facility] 03-27-2023 11:35-0500 Heart rate 76 /min Dr. Donna Will Work Phone: [facility] 03-27-2023 11:35-0500 Inhaled oxygen flow rate 2 L/min Dr. Donna Will Work Phone: [facility] 03-27-2023 11:35-0500 Respiratory rate 18 /min Dr. Donna Will Work Phone: [facility] 03-27-2023 11:35-0500 SaO2% (BldA) [Mass fraction] 90 % Dr. Donna Will Work Phone: [facility] 03-27-2023 11:35-0500 Systolic blood pressure 110 mm[Hg] Dr. Donna Will Work Phone: [facility] 03-21-2023 14:21-0500 Inhaled oxygen flow rate 4 L/min Dr. Donna Will Work Phone: [facility] 03-21-2023 14:00-0500 Body temperature 98 [degF] Dr. Donna Will Work Phone: [facility] 03-21-2023 14:00-0500 Diastolic blood pressure 65 mm[Hg] Dr. Donna Will Work Phone: [facility] 03-21-2023 14:00-0500 Heart rate 82 /min Dr. Donna Will Work Phone: [facility] 03-21-2023 14:00-0500 Respiratory rate 18 /min Dr. Donna Will Work Phone: [facility] 03-21-2023 14:00-0500 SaO2% (BldA) [Mass fraction] 100 % Dr. Donna Will Work Phone: [facility] 03-21-2023 14:00-0500 Systolic blood pressure 103 mm[Hg] Dr. Donna Will Work Phone: [facility] 03-21-2023 08:48-0500 Body mass index (BMI) [Ratio] 28.8 kg/m2 Dr. Donna Will Work Phone: [facility] 03-21-2023 08:48-0500 Body weight 93.[address] Donna Will Work Phone: [facility] 03-18-2023 09:15-0500 Body height 180.[address] Donna Will Work Phone: [facility] 03-16-2023 17:37-0500 Body temperature 96.4 [degF] Dr. Donna Will Work Phone: [facility] 03-16-2023 17:37-0500 Diastolic blood pressure 51 mm[Hg] Dr. Donna Will Work Phone: [facility] 03-16-2023 17:37-0500 Heart rate 68 /min Dr. Donna Will Work Phone: [facility] 03-16-2023 17:37-0500 Inhaled oxygen flow rate 4 L/min Dr. Donna Will Work Phone: [facility] 03-16-2023 17:37-0500 Respiratory rate 22 /min Dr. Donna Will Work Phone: [facility] 03-16-2023 17:37-0500 SaO2% (BldA) [Mass fraction] 100 % Dr. Donna Will Work Phone: [facility] 03-16-2023 17:37-0500 Systolic blood pressure 122 mm[Hg] Dr. Donna Will Work Phone: [facility] 03-16-2023 17:33-0500 Body height 180.[address] Donna Will Work Phone: [facility] 03-16-2023 17:33-0500 Body mass index (BMI) [Ratio] 29.2 kg/m2 Dr. Donna Will Work Phone: [facility] 03-16-2023 17:33-0500 Body weight 95.[address] Donna Will Work Phone: [facility] 03-06-2023 14:12-0500 Heart rate 99 /min Dr. Donna Will Work Phone: [facility] 03-06-2023 14:12-0500 Respiratory rate 18 /min Dr. Donna Will Work Phone: [facility] 03-06-2023 11:52-0500 Body temperature 97.8 [degF] Dr. Donna Will Work Phone: [facility] 03-06-2023 11:52-0500 Diastolic blood pressure 56 mm[Hg] Dr. Donna Will Work Phone: [facility] 03-06-2023 11:52-0500 Inhaled oxygen flow rate 3 L/min Dr. Donna Will Work Phone: [facility] 03-06-2023 11:52-0500 SaO2% (BldA) [Mass fraction] 94 % Dr. Donna Will Work Phone: [facility] 03-06-2023 11:52-0500 Systolic blood pressure 94 mm[Hg] Dr. Donna Will Work Phone: [facility] 03-06-2023 04:59-0500 Body mass index (BMI) [Ratio] 33.5 kg/m2 Dr. Donna Will Work Phone: [facility] 03-06-2023 04:59-0500 Body weight [address] Donna Will Work Phone: [facility] 03-05-2023 15:41-0500 Body height 180.[address] Donna Will Work Phone: [facility] 02-28-2023 16:15-0500 Diastolic blood pressure 71 mm[Hg] Dr. Donna Will Work Phone: [facility] 02-28-2023 16:15-0500 Heart rate 95 /min Dr. Donna Will Work Phone: [facility] 02-28-2023 16:15-0500 Respiratory rate 31 /min Dr. Donna Will Work Phone: [facility] 02-28-2023 16:15-0500 SaO2% (BldA) [Mass fraction] 90 % Dr. Donna Will Work Phone: [facility] 02-28-2023 16:15-0500 Systolic blood pressure 121 mm[Hg] Dr. Donna Will Work Phone: [facility] 02-28-2023 15:30-0500 Inhaled oxygen flow rate 4 L/min Dr. Donna Will Work Phone: [facility] 02-28-2023 15:00-0500 Body temperature 97.4 [degF] Dr. Donna Will Work Phone: [facility] 02-28-2023 11:08-0500 Body height 180.[address] Donna Will Work Phone: [facility] 02-06-2023 11:14-0500 Body temperature 98.1 [degF] Dr. Donna Will Work Phone: [facility] 02-06-2023 11:14-0500 Diastolic blood pressure 50 mm[Hg] Dr. Donna Will Work Phone: [facility] 02-06-2023 11:14-0500 Heart rate 81 /min Dr. Donna Will Work Phone: [facility] 02-06-2023 11:14-0500 Respiratory rate 16 /min Dr. Donna Will Work Phone: [facility] 02-06-2023 11:14-0500 SaO2% (BldA) [Mass fraction] 100 % Dr. Donna Will Work Phone: [facility] 02-06-2023 11:14-0500 Systolic blood pressure 112 mm[Hg] Dr. Donna Will Work Phone: [facility] 02-06-2023 10:30-0500 Body mass index (BMI) [Ratio] 30.9 kg/m2 Dr. Donna Will Work Phone: [facility] 02-06-2023 10:30-0500 Body weight 100.[address] Donna Will Work Phone: [facility] 02-06-2023 10:30-0500 Inhaled oxygen flow rate 4 L/min Dr. Donna Will Work Phone: [facility] 01-30-2023 11:30-0500 Body temperature 97.7 [degF] Dr. Donna Will Work Phone: [facility] 01-30-2023 11:30-0500 Diastolic blood pressure 49 mm[Hg] Dr. Donna Will Work Phone: [facility] 01-30-2023 11:30-0500 Heart rate 77 /min Dr. Donna Will Work Phone: [facility] 01-30-2023 11:30-0500 Respiratory rate 18 /min Dr. Donna Will Work Phone: [facility] 01-30-2023 11:30-0500 Systolic blood pressure 103 mm[Hg] Dr. Donna Will Work Phone: [facility] 01-30-2023 10:03-0500 Body height 180.[address] Donna Will Work Phone: [facility] 01-30-2023 10:03-0500 Body mass index (BMI) [Ratio] 30.9 kg/m2 Dr. Donna Will Work Phone: [facility] 01-30-2023 10:03-0500 Body weight 100.[address] Donna Will Work Phone: [facility] 01-30-2023 10:03-0500 Inhaled oxygen flow rate 4 L/min Dr. Donna Will Work Phone: [facility] 01-30-2023 10:03-0500 SaO2% (BldA) [Mass fraction] 96 % Dr. Donna Will Work Phone: [facility] 01-28-2023 07:43-0500 Body mass index (BMI) [Ratio] 30.4 kg/m2 Dr. Donna Will Work Phone: [facility] 01-28-2023 07:43-0500 Body temperature 96.9 [degF] Dr. Donna Will Work Phone: [facility] 01-28-2023 07:43-0500 Body weight 98.[address] Donna Will Work Phone: [facility] 01-28-2023 07:43-0500 Diastolic blood pressure 51 mm[Hg] Dr. Donna Will Work Phone: [facility] 01-28-2023 07:43-0500 Heart rate 88 /min Dr. Donna Will Work Phone: [facility] 01-28-2023 07:43-0500 Inhaled oxygen flow rate 3 L/min Dr. Donna Will Work Phone: [facility] 01-28-2023 07:43-0500 Respiratory rate 24 /min Dr. Donna Will Work Phone: [facility] 01-28-2023 07:43-0500 SaO2% (BldA) [Mass fraction] 93 % Dr. Donna Will Work Phone: [facility] 01-28-2023 07:43-0500 Systolic blood pressure 99 mm[Hg] Dr. Donna Will Work Phone: [facility] 01-21-2023 13:48-0500 Body mass index (BMI) [Ratio] 31.8 kg/m2 Dr. Donna Will Work Phone: [facility] 01-21-2023 13:48-0500 Body temperature 97.2 [degF] Dr. Donna Will Work Phone: [facility] 01-21-2023 13:48-0500 Body weight 103.[address] Donna Will Work Phone: [facility] 01-21-2023 13:48-0500 Diastolic blood pressure 57 mm[Hg] Dr. Donna Will Work Phone: [facility] 01-21-2023 13:48-0500 Heart rate 81 /min Dr. Donna Will Work Phone: [facility] 01-21-2023 13:48-0500 Respiratory rate 18 /min Dr. Donna Will Work Phone: [facility] 01-21-2023 13:48-0500 SaO2% (BldA) [Mass fraction] 92 % Dr. Donna Will Work Phone: [facility] 01-21-2023 13:48-0500 Systolic blood pressure 95 mm[Hg] Dr. Donna Will Work Phone: [facility] 11-26-2022 14:52-0400 Body mass index (BMI) [Ratio] 31.8 kg/m2 Dr. Donna Will Work Phone: [facility] 11-26-2022 14:52-0400 Body temperature 98.3 [degF] Dr. Donna Will Work Phone: [facility] 11-26-2022 14:52-0400 Body weight 103.[address] Donna Will Work Phone: [facility] 11-26-2022 14:52-0400 Diastolic blood pressure 64 mm[Hg] Dr. Donna Will Work Phone: [facility] 11-26-2022 14:52-0400 Heart rate 76 /min Dr. Donna Will Work Phone: [facility] 11-26-2022 14:52-0400 Inhaled oxygen flow rate 3 L/min Dr. Donna Will Work Phone: [facility] 11-26-2022 14:52-0400 Respiratory rate 18 /min Dr. Donna Will Work Phone: [facility] 11-26-2022 14:52-0400 SaO2% (BldA) [Mass fraction] 92 % Dr. Donna Will Work Phone: [facility] 11-26-2022 14:52-0400 Systolic blood pressure 119 mm[Hg] Dr. Donna Will Work Phone: [facility] 11-21-2022 15:15-0400 Body mass index (BMI) [Ratio] 32.2 kg/m2 Dr. Donna Will Work Phone: [facility] 11-21-2022 15:15-0400 Body temperature 97.4 [degF] Dr. Donna Will Work Phone: [facility] 11-21-2022 15:15-0400 Body weight 104.[address] Donna Will Work Phone: [facility] 11-21-2022 15:15-0400 Diastolic blood pressure 51 mm[Hg] Dr. Donna Will Work Phone: [facility] 11-21-2022 15:15-0400 Heart rate 92 /min Dr. Donna Will Work Phone: [facility] 11-21-2022 15:15-0400 Inhaled oxygen flow rate 3 L/min Dr. Donna Will Work Phone: [facility] 11-21-2022 15:15-0400 Respiratory rate 16 /min Dr. Donna Will Work Phone: [facility] 11-21-2022 15:15-0400 SaO2% (BldA) [Mass fraction] 91 % Dr. Donna Will Work Phone: [facility] 11-21-2022 15:15-0400 Systolic blood pressure 106 mm[Hg] Dr. Donna Will Work Phone: [facility] 11-17-2022 12:19-0400 Body temperature 98.1 [degF] [employer] DANNIELLE PIÑA Work Phone: [facility] 11-17-2022 12:19-0400 Diastolic blood pressure 58 mm[Hg] [employer] DANNIELLE PIÑA Work Phone: [facility] 11-17-2022 12:19-0400 Heart rate 68 /min [employer] DANNIELLE PIÑA Work Phone: [facility] 11-17-2022 12:19-0400 Inhaled oxygen flow rate 4 L/min [employer] DANNIELLE PIÑA Work Phone: [facility] 11-17-2022 12:19-0400 Respiratory rate 16 /min [employer] DANNIELLE PIÑA Work Phone: [facility] 11-17-2022 12:19-0400 SaO2% (BldA) [Mass fraction] 94 % [employer] DANNIELLE PIÑA Work Phone: [facility] 11-17-2022 12:19-0400 Systolic blood pressure 122 mm[Hg] [employer] DANNIELLE PIÑA Work Phone: [facility] 11-17-2022 04:44-0400 Body mass index (BMI) [Ratio] 34 kg/m2 [employer] DANNIELLE PIÑA Work Phone: [facility] 11-17-2022 04:44-0400 Body weight 110.5 kg [employer] DANNIELLE PIÑA Work Phone: [facility] 11-16-2022 12:21-0400 Body height 180.34 cm [employer] DANNIELLE PIÑA Work Phone: [facility] 11-15-2022 19:22-0400 Body temperature 98.5 [degF] [employer] DANNIELLE PIÑA Work Phone: [facility] 11-15-2022 19:22-0400 Diastolic blood pressure 74 mm[Hg] [employer] DANNIELLE PIÑA Work Phone: [facility] 11-15-2022 19:22-0400 Heart rate 78 /min [employer] DANNIELLE PIÑA Work Phone: [facility] 11-15-2022 19:22-0400 Inhaled oxygen flow rate 4 L/min [employer] DANNIELLE PIÑA Work Phone: [facility] 11-15-2022 19:22-0400 Respiratory rate 25 /min [employer] DANNIELLE PIÑA Work Phone: [facility] 11-15-2022 19:22-0400 SaO2% (BldA) [Mass fraction] 96 % [employer] DANNIELLE PIÑA Work Phone: [facility] 11-15-2022 19:22-0400 Systolic blood pressure 122 mm[Hg] [employer] DANNIELLE PIÑA Work Phone: [facility] 11-15-2022 14:30-0400 Body height 180.34 cm [employer] DANNIELLE PIÑA Work Phone: [facility] 11-15-2022 14:30-0400 Body mass index (BMI) [Ratio] 16 kg/m2 [employer] DANNIELLE PIÑA Work Phone: [facility] 11-15-2022 14:30-0400 Body weight 52.16 kg [employer] DANNIELLE PIÑA Work Phone: [facility] 11-08-2022 15:07-0400 Diastolic blood pressure 66 mm[Hg] [employer] DANNIELLE PIÑA Work Phone: [facility] 11-08-2022 15:07-0400 Heart rate 89 /min [employer] DANNIELLE PIÑA Work Phone: [facility] 11-08-2022 15:07-0400 Respiratory rate 16 /min [employer] DANNIELLE PIÑA Work Phone: [facility] 11-08-2022 15:07-0400 SaO2% (BldA) [Mass fraction] 96 % [employer] DANNIELLE PIÑA Work Phone: [facility] 11-08-2022 15:07-0400 Systolic blood pressure 139 mm[Hg] [employer] DANNIELLE PIÑA Work Phone: [facility] 11-08-2022 14:49-0400 Body temperature 97 [degF] [employer] DANNIELLE PIÑA Work Phone: [facility] 11-08-2022 14:49-0400 Inhaled oxygen flow rate 4 L/min [employer] DANNIELLE PIÑA Work Phone: [facility] 11-08-2022 13:12-0400 Body mass index (BMI) [Ratio] 33 kg/m2 [employer] DANNIELLE PIÑA Work Phone: [facility] 11-08-2022 13:12-0400 Body weight 107.55 kg [employer] DANNIELLE PIÑA Work Phone: [facility] 10-29-2022 13:39-0400 Body mass index (BMI) [Ratio] 33 kg/m2 [employer] DANNIELLE PIÑA Work Phone: [facility] 10-29-2022 13:39-0400 Body temperature 98.3 [degF] [employer] DANNIELLE PIÑA Work Phone: [facility] 10-29-2022 13:39-0400 Body weight 107.55 kg [employer] DANNIELLE PIÑA Work Phone: [facility] 10-29-2022 13:39-0400 Diastolic blood pressure 62 mm[Hg] [employer] DANNIELLE PIÑA Work Phone: [facility] 10-29-2022 13:39-0400 Heart rate 77 /min [employer] DANNIELLE PIÑA Work Phone: [facility] 10-29-2022 13:39-0400 Inhaled oxygen flow rate 4 L/min [employer] DANNIELLE PIÑA Work Phone: [facility] 10-29-2022 13:39-0400 Respiratory rate 18 /min [employer] DANNIELLE PIÑA Work Phone: [facility] 10-29-2022 13:39-0400 SaO2% (BldA) [Mass fraction] 93 % [employer] DANNIELLE PIÑA Work Phone: [facility] 10-29-2022 13:39-0400 Systolic blood pressure 124 mm[Hg] [employer] DANNIELLE PIÑA Work Phone: [facility] 09-30-2022 14:35-0400 Body mass index (BMI) [Ratio] 33.5 kg/m2 [employer] DANNIELLE PIÑA Work Phone: [facility] 09-30-2022 14:35-0400 Body temperature 96.5 [degF] [employer] DANNIELLE PIÑA Work Phone: [facility] 09-30-2022 14:35-0400 Body weight 108.89 kg [employer] DANNIELLE PIÑA Work Phone: [facility] 09-30-2022 14:35-0400 Diastolic blood pressure 56 mm[Hg] [employer] DANNIELLE PIÑA Work Phone: [facility] 09-30-2022 14:35-0400 Heart rate 92 /min [employer] DANNIELLE PIÑA Work Phone: [facility] 09-30-2022 14:35-0400 Inhaled oxygen flow rate 4 L/min [employer] DANNIELLE PIÑA Work Phone: [facility] 09-30-2022 14:35-0400 Respiratory rate 18 /min [employer] DANNIELLE PIÑA Work Phone: [facility] 09-30-2022 14:35-0400 SaO2% (BldA) [Mass fraction] 98 % [employer] DANNIELLE PIÑA Work Phone: [facility] 09-30-2022 14:35-0400 Systolic blood pressure 105 mm[Hg] [employer] DANNIELLE PIÑA Work Phone: [facility] 09-13-2022 11:37-0400 Body mass index (BMI) [Ratio] 33.3 kg/m2 [employer] DANNIELLE PIÑA Work Phone: [facility] 09-13-2022 11:37-0400 Body weight 108.4 kg [employer] DANNIELLE PIÑA Work Phone: [facility] 09-13-2022 11:37-0400 Diastolic blood pressure 71 mm[Hg] [employer] DANNIELLE PIÑA Work Phone: [facility] 09-13-2022 11:37-0400 Heart rate 74 /min [employer] DANNIELLE PIÑA Work Phone: [facility] 09-13-2022 11:37-0400 Inhaled oxygen flow rate 2 L/min [employer] DANNIELLE PIÑA Work Phone: [facility] 09-13-2022 11:37-0400 Respiratory rate 22 /min [employer] DANNIELLE PIÑA Work Phone: [facility] 09-13-2022 11:37-0400 SaO2% (BldA) [Mass fraction] 87 % [employer] DANNIELLE PIÑA Work Phone: [facility] 09-13-2022 11:37-0400 Systolic blood pressure 109 mm[Hg] [employer] DANNIELLE PIÑA Work Phone: [facility] 09-04-2022 13:18-0400 Body mass index (BMI) [Ratio] 33.2 kg/m2 [employer] DANNIELLE PIÑA Work Phone: [facility] 09-04-2022 13:18-0400 Body temperature 97.8 [degF] [employer] DANNIELLE PIAÑ Work Phone: [facility] 09-04-2022 13:18-0400 Body weight 107.95 kg [employer] DANNIELLE PIÑA Work Phone: [facility] 09-04-2022 13:18-0400 Diastolic blood pressure 63 mm[Hg] [employer] DANNIELLE PIÑA Work Phone: [facility] 09-04-2022 13:18-0400 Heart rate 93 /min [employer] DANNIELLE PIÑA Work Phone: [facility] 09-04-2022 13:18-0400 Inhaled oxygen flow rate 2 L/min [employer] DANNIELLE PIÑA Work Phone: [facility] 09-04-2022 13:18-0400 Respiratory rate 18 /min [employer] DANNIELLE PIÑA Work Phone: [facility] 09-04-2022 13:18-0400 SaO2% (BldA) [Mass fraction] 93 % [employer] DANNIELLE PIÑA Work Phone: [facility] 09-04-2022 13:18-0400 Systolic blood pressure 112 mm[Hg] [employer] DANNIELLE PIÑA Work Phone: [facility] 08-29-2022 18:09-0400 Diastolic blood pressure 64 mm[Hg] [employer] DANNIELLE PIÑA Work Phone: [facility] 08-29-2022 18:09-0400 Systolic blood pressure 134 mm[Hg] [employer] DANNIELLE PIÑA Work Phone: [facility] 08-29-2022 17:30-0400 Body mass index (BMI) [Ratio] 32.6 kg/m2 [employer] DANNIELLE PIÑA Work Phone: [facility] 08-29-2022 17:30-0400 Body weight 106.14 kg [employer] DANNIELLE PIÑA Work Phone: [facility] 08-29-2022 17:30-0400 Heart rate 78 /min [employer] DANNIELLE PIÑA Work Phone: [facility] 08-29-2022 15:47-0400 Body height 180.34 cm [employer] DANNIELLE PIÑA Work Phone: [facility] 08-29-2022 15:47-0400 Body temperature 97 [degF] [employer] DANNIELLE PIÑA Work Phone: [facility] 08-29-2022 15:47-0400 Inhaled oxygen flow rate 1 L/min [employer] DANNIELLE PIÑA Work Phone: [facility] 08-29-2022 15:47-0400 Respiratory rate 19 /min [employer] DANNIELLE PIÑA Work Phone: [facility] 08-29-2022 15:47-0400 SaO2% (BldA) [Mass fraction] 90 % [employer] DANNIELLE PIÑA Work Phone: [facility] 08-14-2022 13:01-0400 Body mass index (BMI) [Ratio] 32.6 kg/m2 [employer] DANNIELLE PIÑA Work Phone: [facility] 08-14-2022 13:01-0400 Body temperature 98.4 [degF] [employer] DANNIELLE PIÑA Work Phone: [facility] 08-14-2022 13:01-0400 Body weight 106.25 kg [employer] DANNIELLE PIÑA Work Phone: [facility] 08-14-2022 13:01-0400 Diastolic blood pressure 59 mm[Hg] [employer] DANNIELLE PIÑA Work Phone: [facility] 08-14-2022 13:01-0400 Heart rate 86 /min [employer] DANNIELLE PIÑA Work Phone: [facility] 08-14-2022 13:01-0400 Inhaled oxygen flow rate 1 L/min [employer] DANNIELLE PIÑA Work Phone: [facility] 08-14-2022 13:01-0400 Respiratory rate 20 /min [employer] DANNIELLE PIÑA Work Phone: [facility] 08-14-2022 13:01-0400 SaO2% (BldA) [Mass fraction] 90 % [employer] DANNIELLE PIÑA Work Phone: [facility] 08-14-2022 13:01-0400 Systolic blood pressure 104 mm[Hg] [employer] DANNIELLE PIÑA Work Phone: [facility] 08-08-2022 13:55-0400 Body mass index (BMI) [Ratio] 32.7 kg/m2 [employer] DANNIELLE PIÑA Work Phone: [facility] 08-08-2022 13:55-0400 Body temperature 97.4 [degF] [employer] DANNIELLE PIÑA Work Phone: [facility] 08-08-2022 13:55-0400 Body weight 106.39 kg [employer] DANNIELLE PIÑA Work Phone: [facility] 08-08-2022 13:55-0400 Diastolic blood pressure 66 mm[Hg] [employer] DANNIELLE PIÑA Work Phone: [facility] 08-08-2022 13:55-0400 Heart rate 66 /min [employer] DANNIELLE PIÑA Work Phone: [facility] 08-08-2022 13:55-0400 Inhaled oxygen flow rate 1 L/min [employer] DANNIELLE PIÑA Work Phone: [facility] 08-08-2022 13:55-0400 Respiratory rate 16 /min [employer] DANNIELLE PIÑA Work Phone: [facility] 08-08-2022 13:55-0400 SaO2% (BldA) [Mass fraction] 91 % [employer] DANNIELLE PIÑA Work Phone: [facility] 08-08-2022 13:55-0400 Systolic blood pressure 110 mm[Hg] [employer] DANNIELLE PIÑA Work Phone: [facility] 07-23-2022 13:25-0400 Body mass index (BMI) [Ratio] 32.5 kg/m2 [employer] DANNIELLE PIÑA Work Phone: [facility] 07-23-2022 13:25-0400 Body temperature 97.7 [degF] [employer] DANNIELLE PIÑA Work Phone: [facility] 07-23-2022 13:25-0400 Body weight 105.94 kg [employer] DANNIELLE PIÑA Work Phone: [facility] 07-23-2022 13:25-0400 Diastolic blood pressure 72 mm[Hg] [employer] DANNIELLE PIÑA Work Phone: [facility] 07-23-2022 13:25-0400 Heart rate 78 /min [employer] DANNIELLE PIÑA Work Phone: [facility] 07-23-2022 13:25-0400 Inhaled oxygen flow rate 1.5 L/min [employer] DANNIELEL PIÑA Work Phone: [facility] 07-23-2022 13:25-0400 Respiratory rate 18 /min [employer] DANNIELLE PIÑA Work Phone: [facility] 07-23-2022 13:25-0400 SaO2% (BldA) [Mass fraction] 92 % [employer] DANNIELLE PIÑA Work Phone: [facility] 07-23-2022 13:25-0400 Systolic blood pressure 116 mm[Hg] [employer] DANNIELLE PIÑA Work Phone: [facility] 05-29-2022 07:55-0400 Body height 180.34 cm [employer] DANNIELLE PIÑA Work Phone: [facility] 05-29-2022 07:55-0400 Body mass index (BMI) [Ratio] 28.3 kg/m2 [employer] DANNIELLE PIÑA Work Phone: [facility] 05-29-2022 07:55-0400 Body temperature 97.5 [degF] [employer] DANNIELLE PIÑA Work Phone: [facility] 05-29-2022 07:55-0400 Body weight 92.07 kg [employer] DANNIELLE PIÑA Work Phone: [facility] 05-29-2022 07:55-0400 Diastolic blood pressure 65 mm[Hg] [employer] DANNIELLE PIÑA Work Phone: [facility] 05-29-2022 07:55-0400 Heart rate 67 /min [employer] DANNIELLE PIÑA Work Phone: [facility] 05-29-2022 07:55-0400 Inhaled oxygen flow rate 4.5 L/min [employer] DANNIELLE PIÑA Work Phone: [facility] 05-29-2022 07:55-0400 Respiratory rate 16 /min [employer] DANNIELLE PIÑA Work Phone: [facility] 05-29-2022 07:55-0400 SaO2% (BldA) [Mass fraction] 93 % [employer] DANNIELLE PIÑA Work Phone: [facility] 05-29-2022 07:55-0400 Systolic blood pressure 136 mm[Hg] [employer] DANNIELLE PIÑA Work Phone: [facility] 05-15-2022 12:30-0400 Body height 180.34 cm [employer] DANNIELLE PIÑA Work Phone: [facility] 05-15-2022 12:30-0400 Body weight 124.73 kg [employer] DANNIELLE PIÑA Work Phone: [facility] 05-15-2022 12:30-0400 Heart rate 87 /min [employer] DANNIELLE PIÑA Work Phone: [facility] 05-15-2022 12:30-0400 Inhaled oxygen flow rate 2 L/min [employer] DANNIELLE PIÑA Work Phone: [facility] 05-15-2022 12:30-0400 SaO2% (BldA) [Mass fraction] 82 % [employer] DANNIELLE PIÑA Work Phone: [facility] 05-13-2022 14:51-0400 Body temperature 97.4 [degF] [employer] DANNIELLE PIÑA Work Phone: [facility] 05-13-2022 14:51-0400 Diastolic blood pressure 44 mm[Hg] [employer] DANNIELLE PIÑA Work Phone: [facility] 05-13-2022 14:51-0400 Heart rate 80 /min [employer] DANNIELLE PIÑA Work Phone: [facility] 05-13-2022 14:51-0400 Respiratory rate 16 /min [employer] DANNIELLE PIÑA Work Phone: [facility] 05-13-2022 14:51-0400 SaO2% (BldA) [Mass fraction] 98 % [employer] DANNIELLE PIÑA Work Phone: [facility] 05-13-2022 14:51-0400 Systolic blood pressure 101 mm[Hg] [employer] DANNIELLE IPÑA Work Phone: [facility] 05-13-2022 13:57-0400 Body mass index (BMI) [Ratio] 28.4 kg/m2 [employer] DANNIELLE PIÑA Work Phone: [facility] 05-13-2022 13:57-0400 Body weight 92.53 kg [employer] DANNIELLE PIÑA Work Phone: [facility] 05-13-2022 13:57-0400 Inhaled oxygen flow rate 4 L/min [employer] DANNIELLE PIÑA Work Phone: [facility] 04-29-2022 10:49-0500 Body mass index (BMI) [Ratio] 28.5 kg/m2 [employer] DANNIELLE PIÑA Work Phone: [facility] 04-29-2022 10:49-0500 Body temperature 98.2 [degF] [employer] DANNIELLE PIÑA Work Phone: [facility] 04-29-2022 10:49-0500 Body weight 92.98 kg [employer] DANNIELLE PIÑA Work Phone: [facility] 04-29-2022 10:49-0500 Diastolic blood pressure 61 mm[Hg] [employer] DANNIELLE PIÑA Work Phone: [facility] 04-29-2022 10:49-0500 Heart rate 99 /min [employer] DANNIELLE PIÑA Work Phone: [facility] 04-29-2022 10:49-0500 Inhaled oxygen flow rate 93 L/min [employer] DANNIELLE PIÑA Work Phone: [facility] 04-29-2022 10:49-0500 Respiratory rate 18 /min [employer] DANNIELLE PIÑA Work Phone: [facility] 04-29-2022 10:49-0500 SaO2% (BldA) [Mass fraction] 93 % [employer]ERSON [employer] DANNIELLE PIÑA Work Phone: [facility] 04-29-2022 10:49-0500 Systolic blood pressure 110 mm[Hg] [employer] DANNIELLE PIÑA Work Phone: [facility] 02-27-2022 06:28-0500 Body height 180.34 cm [employer] DANNIELLE PIÑA Work Phone: [facility] 02-27-2022 06:28-0500 Body mass index (BMI) [Ratio] 27.4 kg/m2 [employer] DANNIELLE PIÑA Work Phone: [facility] 02-27-2022 06:28-0500 Body temperature 98.1 [degF] [employer]ERSON [employer] DANNIELLE PIÑA Work Phone: [facility] 02-27-2022 06:28-0500 Body weight 89.35 kg [employer] DANNIELLE PIÑA Work Phone: [facility] 02-27-2022 06:28-0500 Diastolic blood pressure 68 mm[Hg] [employer]ERSON [employer] DANNIELLE PIÑA Work Phone: [facility] 02-27-2022 06:28-0500 Heart rate 75 /min [employer] DANNIELLE PIÑA Work Phone: [facility] 02-27-2022 06:28-0500 Inhaled oxygen flow rate 2 L/min [employer] DANNIELLE PIÑA Work Phone: [facility] 02-27-2022 06:28-0500 Respiratory rate 20 /min [employer] DANNIELLE PIÑA Work Phone: [facility] 02-27-2022 06:28-0500 SaO2% (BldA) [Mass fraction] 77 % [employer]ERSON [employer] DANNIELLE IPÑA Work Phone: [facility] 02-27-2022 06:28-0500 Systolic blood pressure 131 mm[Hg] [employer]ERSON [employer] DANNIELLE PIÑA Work Phone: [facility] 02-16-2022 10:19-0500 Inhaled oxygen flow rate 3 L/min [employer] DANNIELLE PIÑA Work Phone: [facility] 02-16-2022 09:25-0500 Body temperature 98.6 [degF] [employer] DANNIELLE PIÑA Work Phone: [facility] 02-16-2022 09:25-0500 Diastolic blood pressure 67 mm[Hg] [employer]ERSON [employer] DANNIELLE PIÑA Work Phone: [facility] 02-16-2022 09:25-0500 Heart rate 83 /min [employer] DANNIELLE PIÑA Work Phone: [facility] 02-16-2022 09:25-0500 Respiratory rate 18 /min [employer] DANNIELLE PIÑA Work Phone: [facility] 02-16-2022 09:25-0500 SaO2% (BldA) [Mass fraction] 93 % [employer]ERSON [employer] DANNIELLE PIÑA Work Phone: [facility] 02-16-2022 09:25-0500 Systolic blood pressure 121 mm[Hg] [employer]ERSON [employer] DANNIELLE PIÑA Work Phone: [facility] 02-15-2022 11:05-0500 Inhaled oxygen concentration 45 % [employer]ERSON [employer] DANNIELLE PIÑA Work Phone: [facility] 02-14-2022 22:30-0500 Body height 180.34 cm [employer]ESPERSON [employer] DANNIELLE PIÑA Work Phone: [facility] Work Phone: 02-14-2022 22:30-0500 Body mass index (BMI) [Ratio] 26.9 kg/m2 [employer] DANNIELLE PIÑA Work Phone: [facility] 02-14-2022 22:30-0500 Body weight 87.4 kg [employer] DANNIELLE PIÑA Work Phone: [facility] 02-14-2022 21:03-0500 Body temperature 98.9 [degF] [employer]ERSON [employer] DANNIELLE PIÑA Work Phone: [facility] Work Phone: 02-14-2022 21:03-0500 Diastolic blood pressure 59 mm[Hg] [employer]ESPERSON [employer] DANNIELLE PIÑA Work Phone: [facility] Work Phone: 02-14-2022 21:03-0500 Heart rate 64 /min [employer] DANNIELLE PIÑA Work Phone: [facility] Work Phone: 02-14-2022 21:03-0500 Inhaled oxygen flow rate 4 L/min [employer] DANNIELLE PIÑA Work Phone: [facility] Work Phone: 02-14-2022 21:03-0500 Respiratory rate 16 /min [employer] DANNIELLE PIÑA Work Phone: [facility] Work Phone: 02-14-2022 21:03-0500 SaO2% (BldA) [Mass fraction] 94 % [employer]ERSON [employer] DANNIELLE PIÑA Work Phone: [facility] Work Phone: 02-14-2022 21:03-0500 Systolic blood pressure 117 mm[Hg] [employer]ERSON [employer] DANNIELLE PIÑA Work Phone: [facility] Work Phone: 02-14-2022 16:26-0500 Body height 180.34 cm [employer]ESPERSON [employer] DANNIELLE PIÑA Work Phone: [facility] Work Phone: 02-14-2022 16:26-0500 Body mass index (BMI) [Ratio] 27.7 kg/m2 [employer] DANNIELLE PIÑA Work Phone: [facility] Work Phone: 02-14-2022 16:26-0500 Body weight 90.2 kg [employer]ERSON [employer] DANNIELLE PIÑA Work Phone: [facility] Work Phone: 02-05-2022 11:33-0500 Body mass index (BMI) [Ratio] 27.8 kg/m2 [employer] DANNIELLE PIÑA Work Phone: [facility] 02-05-2022 11:33-0500 Body temperature 98.1 [degF] [employer]ERSON [employer] DANNIELLE PIÑA Work Phone: [facility] 02-05-2022 11:33-0500 Body weight 90.77 kg [employer]ERSON [employer] DANNIELLE PIÑA Work Phone: [facility] 02-05-2022 11:33-0500 Diastolic blood pressure 69 mm[Hg] [employer]ERSON [employer] DANNIELLE PIÑA Work Phone: [facility] 02-05-2022 11:33-0500 Heart rate 75 /min [employer] DANNIELLE PIÑA Work Phone: [facility] 02-05-2022 11:33-0500 Respiratory rate 17 /min [employer] DANNIELLE PIÑA Work Phone: [facility] 02-05-2022 11:33-0500 SaO2% (BldA) [Mass fraction] 92 % [employer]ERSON [employer] DANNIELLE PIÑA Work Phone: [facility] 02-05-2022 11:33-0500 Systolic blood pressure 124 mm[Hg] [employer]ERSON [employer] DANNIELLE PIÑA Work Phone: [facility] 01-28-2022 12:17-0500 Body temperature 97.6 [degF] [employer]ERSON [employer] DANNIELLE PIÑA Work Phone: [facility] 01-28-2022 12:17-0500 Diastolic blood pressure 61 mm[Hg] [employer]ERSON [employer] DANNIELLE PIÑA Work Phone: [facility] 01-28-2022 12:17-0500 Heart rate 57 /min [employer] DANNIELLE PIÑA Work Phone: [facility] 01-28-2022 12:17-0500 Inhaled oxygen flow rate 4 L/min [employer] DANNIELLE PIÑA Work Phone: [facility] 01-28-2022 12:17-0500 Respiratory rate 16 /min [employer]ERSON [employer] DANNIELLE PIÑA Work Phone: [facility] 01-28-2022 12:17-0500 SaO2% (BldA) [Mass fraction] 97 % [employer]ERSON [employer] DANNIELLE PIÑA Work Phone: [facility] 01-28-2022 12:17-0500 Systolic blood pressure 126 mm[Hg] [employer]ESPERSON [employer] DANNIELLE PIÑA Work Phone: [facility] 01-28-2022 10:04-0500 Body mass index (BMI) [Ratio] 27.8 kg/m2 [employer] DANNIELLE PIÑA Work Phone: [facility] 01-28-2022 10:04-0500 Body weight 90.71 kg [employer]ERSON [employer] DANNIELLE PIÑA Work Phone: [facility] 01-14-2022 12:20-0500 Body temperature 97.8 [degF] Dr. Donna Will Work Phone: [facility] Work Phone: 01-14-2022 12:20-0500 Diastolic blood pressure 67 mm[Hg] Dr. Donna Will Work Phone: [facility] Work Phone: 01-14-2022 12:20-0500 Heart rate 80 /min Dr. Donna Will Work Phone: [facility] Work Phone: 01-14-2022 12:20-0500 Respiratory rate 16 /min Dr. Donna Will Work Phone: [facility] Work Phone: 01-14-2022 12:20-0500 SaO2% (BldA) [Mass fraction] 96 % Dr. Donna Will Work Phone: [facility] Work Phone: 01-14-2022 12:20-0500 Systolic blood pressure 140 mm[Hg] Dr. Donna Will Work Phone: [facility] Work Phone: 01-14-2022 10:11-0500 Body height 180.[address] Donna Will Work Phone: [facility] Work Phone: 01-14-2022 10:11-0500 Inhaled oxygen flow rate 4 L/min Dr. Donna Will Work Phone: [facility] Work Phone: 01-07-2022 10:48-0500 Body mass index (BMI) [Ratio] 25.9 kg/m2 Dr. Donna Will Work Phone: [facility] Work Phone: 01-07-2022 10:48-0500 Body weight 84.[address] Donna Will Work Phone: [facility] Work Phone: 12-26-2021 14:21-0400 Body height 180.[address] Donna Will Work Phone: [facility] Work Phone: 12-26-2021 14:13-0400 Body mass index (BMI) [Ratio] 25.9 kg/m2 Dr. Donna Will Work Phone: [facility] 12-26-2021 14:13-0400 Body temperature 98.6 [degF] Dr. Donna Will Work Phone: [facility] 12-26-2021 14:13-0400 Body weight 84.[address] Donna Will Work Phone: [facility] 12-26-2021 14:13-0400 Diastolic blood pressure 65 mm[Hg] Dr. Donna Will Work Phone: [facility] 12-26-2021 14:13-0400 Heart rate 77 /min Dr. Donna Will Work Phone: [facility] 12-26-2021 14:13-0400 Respiratory rate 17 /min Dr. Donna Will Work Phone: [facility] 12-26-2021 14:13-0400 SaO2% (BldA) [Mass fraction] 89 % Dr. Donna Will Work Phone: [facility] 12-26-2021 14:13-0400 Systolic blood pressure 131 mm[Hg] Dr. Donna Will Work Phone: [facility] 12-11-2021 14:07-0400 Body temperature 98 [degF] Dr. Donna Will Work Phone: [facility] 12-11-2021 14:07-0400 Diastolic blood pressure 63 mm[Hg] Dr. Donna Will Work Phone: [facility] 12-11-2021 14:07-0400 Heart rate 72 /min Dr. Donna Will Work Phone: [facility] 12-11-2021 14:07-0400 Inhaled oxygen flow rate 2 L/min Dr. Donna Will Work Phone: [facility] 12-11-2021 14:07-0400 Respiratory rate 18 /min Dr. oDnna Will Work Phone: [facility] 12-11-2021 14:07-0400 SaO2% (BldA) [Mass fraction] 94 % Dr. Donna Will Work Phone: [facility] 12-11-2021 14:07-0400 Systolic blood pressure 144 mm[Hg] Dr. Donna Will Work Phone: [facility] 12-11-2021 06:00-0400 Body weight 85.[address] Donna Will Work Phone: [facility] 12-10-2021 09:37-0400 Body height 180.[address] Donna Will Work Phone: [facility] Work Phone: 12-10-2021 09:37-0400 Body mass index (BMI) [Ratio] 26.5 kg/m2 Dr. Donna Will Work Phone: [facility] 12-08-2021 19:46-0400 Body temperature 99.2 [degF] Dr. Donna Will Work Phone: [facility] Work Phone: 12-08-2021 19:46-0400 Diastolic blood pressure 62 mm[Hg] Dr. Donna Will Work Phone: [facility] Work Phone: 12-08-2021 19:46-0400 Heart rate 94 /min Dr. Donna iWll Work Phone: [facility] Work Phone: 12-08-2021 19:46-0400 Inhaled oxygen flow rate 5 L/min Dr. Donna Will Work Phone: [facility] Work Phone: 12-08-2021 19:46-0400 Respiratory rate 21 /min Dr. Donna Will Work Phone: [facility] Work Phone: 12-08-2021 19:46-0400 SaO2% (BldA) [Mass fraction] 95 % Dr. Donna Will Work Phone: [facility] Work Phone: 12-08-2021 19:46-0400 Systolic blood pressure 121 mm[Hg] Dr. Donna Will Work Phone: [facility] Work Phone: 12-08-2021 17:06-0400 Body height 180.[address] Donna Will Work Phone: [facility] Work Phone: 12-08-2021 17:06-0400 Body mass index (BMI) [Ratio] 26.9 kg/m2 Dr. Donna Will Work Phone: [facility] Work Phone: 12-08-2021 17:06-0400 Body weight 87.[address] Donna Will Work Phone: [facility] Work Phone: 10-26-2021 11:03-0400 Body temperature 97.8 [degF] Dr. Donna Will Work Phone: [facility] Work Phone: 10-26-2021 11:03-0400 Diastolic blood pressure 68 mm[Hg] Dr. Donna Will Work Phone: [facility] Work Phone: 10-26-2021 11:03-0400 Heart rate 68 /min Dr. Donna Will Work Phone: [facility] Work Phone: 10-26-2021 11:03-0400 Inhaled oxygen flow rate 3 L/min Dr. Donna Will Work Phone: [facility] Work Phone: 10-26-2021 11:03-0400 Respiratory rate 18 /min Dr. Donna Will Work Phone: [facility] Work Phone: 10-26-2021 11:03-0400 SaO2% (BldA) [Mass fraction] 94 % Dr. Donna Will Work Phone: [facility] Work Phone: 10-26-2021 11:03-0400 Systolic blood pressure 137 mm[Hg] Dr. Donna Will Work Phone: [facility] Work Phone: 10-25-2021 13:51-0400 Body height 180.[address] Donna Will Work Phone: [facility] Work Phone: 10-25-2021 13:51-0400 Body mass index (BMI) [Ratio] 25.9 kg/m2 Dr. Donna Will Work Phone: [facility] Work Phone: 10-25-2021 13:51-0400 Body weight 84.[address] Donna Will Work Phone: [facility] Work Phone: 10-23-2021 08:03-0400 Body mass index (BMI) [Ratio] 26.9 kg/m2 Dr. Donna Will Work Phone: [facility] Work Phone: 10-23-2021 08:03-0400 Body temperature 98 [degF] Dr. Donna Will Work Phone: [facility] Work Phone: 10-23-2021 08:03-0400 Body weight 87.[address] Donna Will Work Phone: [facility] Work Phone: 10-23-2021 08:03-0400 Diastolic blood pressure 63 mm[Hg] Dr. Donna Will Work Phone: [facility] Work Phone: 10-23-2021 08:03-0400 Heart rate 96 /min Dr. Donna Will Work Phone: [facility] Work Phone: 10-23-2021 08:03-0400 Inhaled oxygen flow rate 3 L/min Dr. Donna Will Work Phone: [facility] Work Phone: 10-23-2021 08:03-0400 Respiratory rate 18 /min Dr. Donna Will Work Phone: [facility] Work Phone: 10-23-2021 08:03-0400 SaO2% (BldA) [Mass fraction] 81 % Dr. Donna Will Work Phone: [facility] Work Phone: 10-23-2021 08:03-0400 Systolic blood pressure 107 mm[Hg] Dr. Donna Will Work Phone: [facility] Work Phone: 10-16-2021 15:32-0400 Body mass index (BMI) [Ratio] 25.9 kg/m2 Dr. Donna Will Work Phone: [facility] Work Phone: 10-16-2021 15:32-0400 Body temperature 98.3 [degF] Dr. Donna Will Work Phone: [facility] Work Phone: 10-16-2021 15:32-0400 Body weight 84.[address] Donna Will Work Phone: [facility] Work Phone: 10-16-2021 15:32-0400 Diastolic blood pressure 70 mm[Hg] Dr. Donna Will Work Phone: [facility] Work Phone: 10-16-2021 15:32-0400 Heart rate 79 /min Dr. Donna Will Work Phone: [facility] Work Phone: 10-16-2021 15:32-0400 Respiratory rate 17 /min Dr. Donna Will Work Phone: [facility] Work Phone: 10-16-2021 15:32-0400 SaO2% (BldA) [Mass fraction] 95 % Dr. Donna Will Work Phone: [facility] Work Phone: 10-16-2021 15:32-0400 Systolic blood pressure 118 mm[Hg] Dr. Donna Will Work Phone: [facility] Work Phone: 10-09-2021 14:14-0400 Body mass index (BMI) [Ratio] 26.4 kg/m2 Dr. Donna Will Work Phone: [facility] Work Phone: 10-09-2021 14:14-0400 Body weight 86.[address] Donna Will Work Phone: [facility] Work Phone: 10-09-2021 14:14-0400 Diastolic blood pressure 69 mm[Hg] Dr. Donna Will Work Phone: [facility] Work Phone: 10-09-2021 14:14-0400 Heart rate 88 /min Dr. Donna Will Work Phone: [facility] Work Phone: 10-09-2021 14:14-0400 Inhaled oxygen flow rate 2.5 L/min Dr. Donna Will Work Phone: [facility] Work Phone: 10-09-2021 14:14-0400 Respiratory rate 18 /min Dr. Donna Will Work Phone: [facility] Work Phone: 10-09-2021 14:14-0400 SaO2% (BldA) [Mass fraction] 98 % Dr. Donna Will Work Phone: [facility] Work Phone: 10-09-2021 14:14-0400 Systolic blood pressure 123 mm[Hg] Dr. Donna Will Work Phone: [facility] Work Phone: 10-02-2021 14:00-0400 Respiratory rate 24 /min Dr. Donna Will Work Phone: [facility] Work Phone: 10-02-2021 13:50-0400 Body temperature 98.1 [degF] Dr. Donna Will Work Phone: [facility] Work Phone: 10-02-2021 13:50-0400 Diastolic blood pressure 56 mm[Hg] Dr. Donna Will Work Phone: [facility] Work Phone: 10-02-2021 13:50-0400 Heart rate 89 /min Dr. Donna Will Work Phone: [facility] Work Phone: 10-02-2021 13:50-0400 Inhaled oxygen flow rate 3 L/min Dr. Donna Will Work Phone: [facility] Work Phone: 10-02-2021 13:50-0400 SaO2% (BldA) [Mass fraction] 97 % Dr. Donna Will Work Phone: [facility] Work Phone: 10-02-2021 13:50-0400 Systolic blood pressure 114 mm[Hg] Dr. Donna Will Work Phone: [facility] Work Phone: 10-02-2021 06:00-0400 Body weight 83.[address] Donna Will Work Phone: [facility] Work Phone: 10-01-2021 19:46-0400 Body height 180.[address] Donna Will Work Phone: [facility] Work Phone: 10-01-2021 19:46-0400 Body mass index (BMI) [Ratio] 25.7 kg/m2 Dr. Donna Will Work Phone: [facility] Work Phone: 10-01-2021 18:00-0400 Body temperature 98.4 [degF] Dr. Donna Will Work Phone: [facility] Work Phone: 10-01-2021 18:00-0400 Diastolic blood pressure 58 mm[Hg] Dr. Donna Will Work Phone: [facility] Work Phone: 10-01-2021 18:00-0400 Heart rate 84 /min Dr. Donna Will Work Phone: [facility] Work Phone: 10-01-2021 18:00-0400 Inhaled oxygen flow rate 4 L/min Dr. Donna Will Work Phone: [facility] Work Phone: 10-01-2021 18:00-0400 Respiratory rate 19 /min Dr. Donna Will Work Phone: [facility] Work Phone: 10-01-2021 18:00-0400 SaO2% (BldA) [Mass fraction] 95 % Dr. Donna Will Work Phone: [facility] Work Phone: 10-01-2021 18:00-0400 Systolic blood pressure 114 mm[Hg] Dr. Donna Will Work Phone: [facility] Work Phone: 10-01-2021 14:04-0400 Body height 180.[address] Donna Will Work Phone: [facility] Work Phone: 10-01-2021 14:04-0400 Body mass index (BMI) [Ratio] 26.1 kg/m2 Dr. Donna Will Work Phone: [facility] Work Phone: 10-01-2021 14:04-0400 Body weight 84.[address] Donna Will Work Phone: [facility] Work Phone: 09-03-2021 13:52-0400 Body temperature 97.5 [degF] Dr. Donna Will Work Phone: [facility] Work Phone: 09-03-2021 13:52-0400 Diastolic blood pressure 75 mm[Hg] Dr. Donna Will Work Phone: [facility] Work Phone: 09-03-2021 13:52-0400 Heart rate 79 /min Dr. Donna Will Work Phone: [facility] Work Phone: 09-03-2021 13:52-0400 Inhaled oxygen flow rate 4 L/min Dr. Donna Will Work Phone: [facility] Work Phone: 09-03-2021 13:52-0400 Respiratory rate 18 /min Dr. Donna Will Work Phone: [facility] Work Phone: 09-03-2021 13:52-0400 SaO2% (BldA) [Mass fraction] 97 % Dr. Donna Will Work Phone: [facility] Work Phone: 09-03-2021 13:52-0400 Systolic blood pressure 127 mm[Hg] Dr. Donna Will Work Phone: [facility] Work Phone: 08-21-2021 12:06-0400 Body height 187.[address] Donna iWll Work Phone: [facility] Work Phone: 08-07-2021 18:22-0400 Body temperature 97.8 [degF] Dr. Donna Will Work Phone: [facility] Work Phone: 08-07-2021 18:22-0400 Diastolic blood pressure 76 mm[Hg] Dr. Donna Will Work Phone: [facility] Work Phone: 08-07-2021 18:22-0400 Heart rate 100 /min Dr. Donna Will Work Phone: [facility] Work Phone: 08-07-2021 18:22-0400 Inhaled oxygen flow rate 4 L/min Dr. Donna Will Work Phone: [facility] Work Phone: 08-07-2021 18:22-0400 Respiratory rate 18 /min Dr. Donna Will Work Phone: [facility] Work Phone: 08-07-2021 18:22-0400 SaO2% (BldA) [Mass fraction] 98 % Dr. Donna Will Work Phone: [facility] Work Phone: 08-07-2021 18:22-0400 Systolic blood pressure 128 mm[Hg] Dr. Donna Will Work Phone: [facility] Work Phone: 08-07-2021 11:11-0400 Body height 180.[address] Donna Will Work Phone: [facility] Work Phone: 08-07-2021 11:11-0400 Body weight 80.[address] Donna Will Work Phone: [facility] Work Phone: 08-06-2021 18:56-0400 Heart rate 107 /min Dr. Donna Will Work Phone: [facility] Work Phone: 08-06-2021 18:56-0400 Respiratory rate 19 /min Dr. Donna Will Work Phone: [facility] Work Phone: 08-06-2021 17:44-0400 SaO2% (BldA) [Mass fraction] 100 % Dr. Donna Will Work Phone: [facility] Work Phone: 08-06-2021 16:34-0400 Body height 180.[address] Donna Will Work Phone: [facility] Work Phone: 08-06-2021 16:34-0400 Body mass index (BMI) [Ratio] 24.8 kg/m2 Dr. Donna Will Work Phone: [facility] Work Phone: 08-06-2021 16:34-0400 Body weight 80.[address] Donna Will Work Phone: [facility] Work Phone: 08-06-2021 16:33-0400 Body temperature 98 [degF] Dr. Donna Will Work Phone: [facility] Work Phone: 08-06-2021 16:33-0400 Diastolic blood pressure 100 mm[Hg] Dr. Donna Will Work Phone: [facility] Work Phone: 08-06-2021 16:33-0400 Systolic blood pressure 141 mm[Hg] Dr. Donna Will Work Phone: [facility] Work Phone: 08-06-2021 15:51-0400 Body temperature 97.8 [degF] Dr. Donna Will Work Phone: [facility] Work Phone: 08-06-2021 15:51-0400 Diastolic blood pressure 64 mm[Hg] Dr. Donna Will Work Phone: [facility] Work Phone: 08-06-2021 15:51-0400 Heart rate 102 /min Dr. Donna Will Work Phone: [facility] Work Phone: 08-06-2021 15:51-0400 Respiratory rate 18 /min Dr. Donna Will Work Phone: [facility] Work Phone: 08-06-2021 15:51-0400 SaO2% (BldA) [Mass fraction] 97 % Dr. Donna Will Work Phone: [facility] Work Phone: 08-06-2021 15:51-0400 Systolic blood pressure 122 mm[Hg] Dr. Donna Will Work Phone: [facility] Work Phone: 08-06-2021 12:07-0400 Body height 180.[address] Donna Will Work Phone: [facility] Work Phone: 08-06-2021 12:07-0400 Body mass index (BMI) [Ratio] 25.2 kg/m2 Dr. Donna Will Work Phone: [facility] Work Phone: 08-06-2021 12:07-0400 Body weight 82.[address] Donna Will Work Phone: [facility] Work Phone: 07-24-2021 08:49-0400 Body height 187.[address] Donna Will Work Phone: [facility] Work Phone: 07-24-2021 08:49-0400 Body mass index (BMI) [Ratio] 23.1 kg/m2 Dr. Donna Will Work Phone: [facility] Work Phone: 07-24-2021 08:49-0400 Body temperature 97.1 [degF] Dr. Donna Will Work Phone: [facility] Work Phone: 07-24-2021 08:49-0400 Body weight 81.[address] Donna Will Work Phone: [facility] Work Phone: 07-24-2021 08:49-0400 Diastolic blood pressure 60 mm[Hg] Dr. Donna Will Work Phone: [facility] Work Phone: 07-24-2021 08:49-0400 Heart rate 91 /min Dr. Donna Will Work Phone: [facility] Work Phone: 07-24-2021 08:49-0400 Inhaled oxygen flow rate 3 L/min Dr. Donna Will Work Phone: [facility] Work Phone: 07-24-2021 08:49-0400 Respiratory rate 14 /min Dr. Donna Will Work Phone: [facility] Work Phone: 07-24-2021 08:49-0400 SaO2% (BldA) [Mass fraction] 93 % Dr. Donna Will Work Phone: [facility] Work Phone: 07-24-2021 08:49-0400 Systolic blood pressure 94 mm[Hg] Dr. Donna Will Work Phone: [facility] Work Phone: 07-24-2021 07:42-0400 Body mass index (BMI) [Ratio] 23.1 kg/m2 Dr. Donna Will Work Phone: [facility] Work Phone: 07-24-2021 07:42-0400 Body temperature 97 [degF] Dr. Donna Will Work Phone: [facility] Work Phone: 07-24-2021 07:42-0400 Body weight 81.[address] Donna Will Work Phone: [facility] Work Phone: 07-24-2021 07:42-0400 Diastolic blood pressure 46 mm[Hg] Dr. Donna Will Work Phone: [facility] Work Phone: 07-24-2021 07:42-0400 Heart rate 79 /min Dr. Donna Will Work Phone: [facility] Work Phone: 07-24-2021 07:42-0400 Inhaled oxygen flow rate 3 L/min Dr. Donna Will Work Phone: [facility] Work Phone: 07-24-2021 07:42-0400 Respiratory rate 16 /min Dr. Donna Will Work Phone: [facility] Work Phone: 07-24-2021 07:42-0400 SaO2% (BldA) [Mass fraction] 93 % Dr. Donna Will Work Phone: [facility] Work Phone: 07-24-2021 07:42-0400 Systolic blood pressure 94 mm[Hg] Dr. Donna Will Work Phone: [facility] Work Phone: 07-24-2021 07:42-0400 Body mass index (BMI) [Ratio] 23.1 kg/m2 Dr. Donna Will Work Phone: [facility] Work Phone: 07-24-2021 07:42-0400 Body temperature 97 [degF] Dr. Donna Will Work Phone: [facility] Work Phone: 07-24-2021 07:42-0400 Body weight 81.[address] Donna Will Work Phone: [facility] Work Phone: 07-24-2021 07:42-0400 Diastolic blood pressure 46 mm[Hg] Dr. Donna Will Work Phone: [facility] Work Phone: 07-24-2021 07:42-0400 Heart rate 79 /min Dr. Donna Will Work Phone: [facility] Work Phone: 07-24-2021 07:42-0400 Respiratory rate 16 /min Dr. Donna Will Work Phone: [facility] Work Phone: 07-24-2021 07:42-0400 SaO2% (BldA) [Mass fraction] 93 % Dr. Donna Will Work Phone: [facility] Work Phone: 07-24-2021 07:42-0400 Systolic blood pressure 94 mm[Hg] Dr. Donna Will Work Phone: [facility] Work Phone: 06-25-2021 13:34-0400 Body mass index (BMI) [Ratio] 24.6 kg/m2 Dr. Donna Will Work Phone: [facility] Work Phone: 06-25-2021 13:34-0400 Body temperature 97.3 [degF] Dr. Donna Will Work Phone: [facility] Work Phone: 06-25-2021 13:34-0400 Body weight 87.[address] Donna Will Work Phone: [facility] Work Phone: 06-25-2021 13:34-0400 Diastolic blood pressure 65 mm[Hg] Dr. Donna Will Work Phone: [facility] Work Phone: 06-25-2021 13:34-0400 Heart rate 85 /min Dr. Donna Will Work Phone: [facility] Work Phone: 06-25-2021 13:34-0400 Inhaled oxygen flow rate 4 L/min Dr. Donna Will Work Phone: [facility] Work Phone: 06-25-2021 13:34-0400 Respiratory rate 16 /min Dr. Donna Will Work Phone: [facility] Work Phone: 06-25-2021 13:34-0400 SaO2% (BldA) [Mass fraction] 93 % Dr. Donna Will Work Phone: [facility] Work Phone: 06-25-2021 13:34-0400 Systolic blood pressure 110 mm[Hg] Dr. Donna Will Work Phone: [facility] Work Phone: 06-25-2021 13:34-0400 Body mass index (BMI) [Ratio] 24.6 kg/m2 Dr. Donna Will Work Phone: [facility] Work Phone: 06-25-2021 13:34-0400 Body temperature 97.3 [degF] Dr. Donna Will Work Phone: [facility] Work Phone: 06-25-2021 13:34-0400 Body weight 87.[address] Donna Will Work Phone: [facility] Work Phone: 06-25-2021 13:34-0400 Diastolic blood pressure 65 mm[Hg] Dr. Donna Will Work Phone: [facility] Work Phone: 06-25-2021 13:34-0400 Heart rate 85 /min Dr. Donna Will Work Phone: [facility] Work Phone: 06-25-2021 13:34-0400 Respiratory rate 16 /min Dr. Donna Will Work Phone: [facility] Work Phone: 06-25-2021 13:34-0400 SaO2% (BldA) [Mass fraction] 93 % Dr. Donna Will Work Phone: [facility] Work Phone: 06-25-2021 13:34-0400 Systolic blood pressure 110 mm[Hg] Dr. Donna Will Work Phone: [facility] Work Phone: 05-29-2021 08:46-0400 Body mass index (BMI) [Ratio] 25.1 kg/m2 Dr. Donna Will Work Phone: [facility] Work Phone: 05-29-2021 08:46-0400 Body temperature 96.5 [degF] Dr. Donna Will Work Phone: [facility] Work Phone: 05-29-2021 08:46-0400 Body weight 88.[address] Donna Will Work Phone: [facility] Work Phone: 05-29-2021 08:46-0400 Diastolic blood pressure 84 mm[Hg] Dr. Donna Will Work Phone: [facility] Work Phone: 05-29-2021 08:46-0400 Heart rate 92 /min Dr. Donna Will Work Phone: [facility] Work Phone: 05-29-2021 08:46-0400 Respiratory rate 14 /min Dr. Donna Will Work Phone: [facility] Work Phone: 05-29-2021 08:46-0400 SaO2% (BldA) [Mass fraction] 98 % Dr. Donna Will Work Phone: [facility] Work Phone: 05-29-2021 08:46-0400 Systolic blood pressure 128 mm[Hg] Dr. Donna Will Work Phone: [facility] Work Phone: 05-29-2021 08:46-0400 Body height 187.[address] Donna Will Work Phone: [facility] Work Phone: 05-29-2021 08:46-0400 Body mass index (BMI) [Ratio] 25.1 kg/m2 Dr. Donna Will Work Phone: [facility] Work Phone: 05-29-2021 08:46-0400 Body temperature 96.5 [degF] Dr. Donna Will Work Phone: [facility] Work Phone: 05-29-2021 08:46-0400 Body weight 88.[address] Donna Will Work Phone: [facility] Work Phone: 05-29-2021 08:46-0400 Diastolic blood pressure 84 mm[Hg] Dr. Donna Will Work Phone: [facility] Work Phone: 05-29-2021 08:46-0400 Heart rate 92 /min Dr. Donna Will Work Phone: [facility] Work Phone: 05-29-2021 08:46-0400 Respiratory rate 14 /min Dr. Donna Will Work Phone: [facility] Work Phone: 05-29-2021 08:46-0400 SaO2% (BldA) [Mass fraction] 98 % Dr. Donna Will Work Phone: [facility] Work Phone: 05-29-2021 08:46-0400 Systolic blood pressure 128 mm[Hg] Dr. Donna Will Work Phone: [facility] Work Phone: 05-18-2021 10:00-0400 Heart rate 73 /min Dr. Donna Will Work Phone: [facility] Work Phone: 05-18-2021 10:00-0400 Respiratory rate 18 /min Dr. Donna Will Work Phone: [facility] Work Phone: 05-18-2021 10:00-0400 SaO2% (BldA) [Mass fraction] 97 % Dr. Donna Will Work Phone: [facility] Work Phone: 05-18-2021 08:07-0400 Inhaled oxygen flow rate 4 L/min Dr. Donna Will Work Phone: [facility] Work Phone: 05-18-2021 05:04-0400 Diastolic blood pressure 63 mm[Hg] Dr. Donna Will Work Phone: [facility] Work Phone: 05-18-2021 05:04-0400 Systolic blood pressure 112 mm[Hg] Dr. Donna Will Work Phone: [facility] Work Phone: 05-17-2021 14:47-0400 Body temperature 96.9 [degF] Dr. Donna Will Work Phone: [facility] Work Phone: 05-15-2021 10:13-0400 Body weight 87.[address] Donna Will Work Phone: [facility] Work Phone: 05-14-2021 20:14-0400 Inhaled oxygen concentration 98 % Dr. Donna Will Work Phone: [facility] Work Phone: 05-04-2021 14:55-0500 Body mass index (BMI) [Ratio] 26.1 kg/m2 Dr. Donna Will Work Phone: [facility] Work Phone: 05-04-2021 13:55-0500 Body mass index (BMI) [Ratio] 26.1 kg/m2 Dr. Donna Will Work Phone: [facility] Work Phone: 05-04-2021 12:18-0500 SaO2% (BldA) [Mass fraction] 92 % Dr. Donna Will Work Phone: [facility] Work Phone: 05-04-2021 10:24-0500 Body temperature 98.5 [degF] Dr. Donna Will Work Phone: [facility] Work Phone: 05-04-2021 10:24-0500 Diastolic blood pressure 76 mm[Hg] Dr. Donna Will Work Phone: [facility] Work Phone: 05-04-2021 10:24-0500 Heart rate 98 /min Dr. Donna Will Work Phone: [facility] Work Phone: 05-04-2021 10:24-0500 Respiratory rate 18 /min Dr. Donna Will Work Phone: [facility] Work Phone: 05-04-2021 10:24-0500 Systolic blood pressure 134 mm[Hg] Dr. Donna Will Work Phone: [facility] Work Phone: 05-04-2021 05:00-0500 Body weight [address] Donna Will Work Phone: [facility] Work Phone: 05-02-2021 12:57-0500 Body mass index (BMI) [Ratio] 28.8 kg/m2 Dr. Donna Will Work Phone: [facility] Work Phone: 04-29-2021 05:17-0500 Diastolic blood pressure 54 mm[Hg] Dr. Donna Will Work Phone: [facility] Work Phone: 04-29-2021 05:17-0500 Heart rate 70 /min Dr. Donna Will Work Phone: [facility] Work Phone: 04-29-2021 05:17-0500 Systolic blood pressure 108 mm[Hg] Dr. Donna Will Work Phone: [facility] Work Phone: 04-29-2021 01:10-0500 Respiratory rate 20 /min Dr. Donna Will Work Phone: [facility] Work Phone: 04-29-2021 01:10-0500 SaO2% (BldA) [Mass fraction] 92 % Dr. Donna Will Work Phone: [facility] Work Phone: 04-29-2021 00:34-0500 Body temperature 98.6 [degF] Dr. Donna Will Work Phone: [facility] Work Phone: 04-28-2021 20:00-0500 Inhaled oxygen concentration 4 % Dr. Donna Will Work Phone: [facility] Work Phone: 04-27-2021 12:51-0500 Body weight 89.[address] Donna Will Work Phone: [facility] Work Phone: 04-26-2021 15:23-0500 Body mass index (BMI) [Ratio] 28.4 kg/m2 Dr. Donna Will Work Phone: [facility] Work Phone: 04-26-2021 14:43-0500 Body temperature 99.2 [degF] Dr. Donna Will Work Phone: [facility] Work Phone: 04-26-2021 14:43-0500 Diastolic blood pressure 62 mm[Hg] Dr. Donna Will Work Phone: [facility] Work Phone: 04-26-2021 14:43-0500 Heart rate 96 /min Dr. Donna Will Work Phone: [facility] Work Phone: 04-26-2021 14:43-0500 Respiratory rate 16 /min Dr. Donna Will Work Phone: [facility] Work Phone: 04-26-2021 14:43-0500 SaO2% (BldA) [Mass fraction] 93 % Dr. Donna Will Work Phone: [facility] Work Phone: 04-26-2021 14:43-0500 Systolic blood pressure 127 mm[Hg] Dr. Donna Will Work Phone: [facility] Work Phone: 04-25-2021 13:20-0500 Body weight [address] Donna Will Work Phone: [facility] Work Phone: 04-22-2021 16:37-0500 Inhaled oxygen concentration 35 % Dr. Donna Will Work Phone: [facility] Work Phone: 04-21-2021 19:15-0500 Body mass index (BMI) [Ratio] 27.7 kg/m2 Dr. Donna Will Work Phone: [facility] Work Phone: 04-19-2021 13:21-0500 Body mass index (BMI) [Ratio] 28.2 kg/m2 Dr. Donna Will Work Phone: [facility] Work Phone: 04-19-2021 13:21-0500 Body temperature 95.3 [degF] Dr. Donna Will Work Phone: [facility] Work Phone: 04-19-2021 13:21-0500 Body weight 89.[address] Donna Will Work Phone: [facility] Work Phone: 04-19-2021 13:21-0500 Diastolic blood pressure 64 mm[Hg] Dr. Donna Will Work Phone: [facility] Work Phone: 04-19-2021 13:21-0500 Heart rate 77 /min Dr. Donna Will Work Phone: [facility] Work Phone: 04-19-2021 13:21-0500 Respiratory rate 18 /min Dr. Donna Will Work Phone: [facility] Work Phone: 04-19-2021 13:21-0500 SaO2% (BldA) [Mass fraction] 94 % Dr. Donna Will Work Phone: [facility] Work Phone: 04-19-2021 13:21-0500 Systolic blood pressure 128 mm[Hg] Dr. Donna Will Work Phone: [facility] Work Phone: 04-11-2021 13:53-0500 Heart rate 88 /min Dr. Donna Will Work Phone: [facility] Work Phone: 04-11-2021 13:53-0500 Respiratory rate 20 /min Dr. Donna Will Work Phone: [facility] Work Phone: 04-11-2021 13:20-0500 SaO2% (BldA) [Mass fraction] 92 % Dr. Donna Will Work Phone: [facility] Work Phone: 04-11-2021 10:40-0500 Body temperature 97.9 [degF] Dr. Donna Will Work Phone: [facility] Work Phone: 04-11-2021 10:20-0500 Diastolic blood pressure 52 mm[Hg] Dr. Donna Will Work Phone: [facility] Work Phone: 04-11-2021 10:20-0500 Systolic blood pressure 111 mm[Hg] Dr. Donna Will Work Phone: [facility] Work Phone: 04-09-2021 14:39-0500 Body weight 93.[address] Donna Will Work Phone: [facility] Work Phone: 04-08-2021 16:22-0500 Body mass index (BMI) [Ratio] 29.6 kg/m2 Dr. Donna Will Work Phone: [facility] Work Phone: 03-28-2021 08:13-0500 Body temperature 95.9 [degF] Dr. Donna Will Work Phone: [facility] Work Phone: 03-28-2021 08:13-0500 Body weight 97.[address] Donna Will Work Phone: [facility] Work Phone: 03-28-2021 08:13-0500 Diastolic blood pressure 60 mm[Hg] Dr. Donna Will Work Phone: [facility] Work Phone: 03-28-2021 08:13-0500 Heart rate 74 /min Dr. Donna Will Work Phone: [facility] Work Phone: 03-28-2021 08:13-0500 Respiratory rate 16 /min Dr. Donna Will Work Phone: [facility] Work Phone: 03-28-2021 08:13-0500 SaO2% (BldA) [Mass fraction] 93 % Dr. Donna Will Work Phone: [facility] Work Phone: 03-28-2021 08:13-0500 Systolic blood pressure 118 mm[Hg] Dr. Donna Will Work Phone: [facility] Work Phone: 03-25-2021 08:18-0500 SaO2% (BldA) [Mass fraction] 91 % Dr. Donna Will Work Phone: [facility] Work Phone: 03-25-2021 08:07-0500 Heart rate 64 /min Dr. Donna Will Work Phone: [facility] Work Phone: 03-25-2021 07:45-0500 Body temperature 98.7 [degF] Dr. Donna Will Work Phone: [facility] Work Phone: 03-25-2021 07:45-0500 Diastolic blood pressure 58 mm[Hg] Dr. Donna Will Work Phone: [facility] Work Phone: 03-25-2021 07:45-0500 Respiratory rate 16 /min Dr. Donna Will Work Phone: [facility] Work Phone: 03-25-2021 07:45-0500 Systolic blood pressure 121 mm[Hg] Dr. Donna Will Work Phone: [facility] Work Phone: 03-25-2021 04:41-0500 Body weight 99.[address] Donna Will Work Phone: [facility] Work Phone: 03-23-2021 00:57-0500 Body mass index (BMI) [Ratio] 30.2 kg/m2 Dr. Donna Will Work Phone: [facility] Work Phone: 03-14-2021 12:34-0500 SaO2% (BldA) [Mass fraction] 97 % Dr. Donna Will Work Phone: [facility] Work Phone: 03-14-2021 11:44-0500 Heart rate 72 /min Dr. Donna Will Work Phone: [facility] Work Phone: 03-14-2021 11:44-0500 Respiratory rate 18 /min Dr. Donna Will Work Phone: [facility] Work Phone: 03-14-2021 08:41-0500 Body temperature 96 [degF] Dr. Donna Will Work Phone: [facility] Work Phone: 03-14-2021 08:41-0500 Diastolic blood pressure 60 mm[Hg] Dr. Donna Will Work Phone: [facility] Work Phone: 03-14-2021 08:41-0500 Systolic blood pressure 141 mm[Hg] Dr. Donna Will Work Phone: [facility] Work Phone: 03-14-2021 08:39-0500 Body mass index (BMI) [Ratio] 30 kg/m2 Dr. Donna Will Work Phone: [facility] Work Phone: 03-14-2021 08:39-0500 Body weight 97.[address] Donna Will Work Phone: [facility] Work Phone: Encounters Encounter Date Encounter Type Care Provider Facility Start: 08-13-2024 ambulatory Donna Will Facility :[facility] Start: 08-03-2024 ambulatory Tobi Zapata Facility:[facility] Start: 07-27-2024 Dr. Tobi Zapata MD -[facility] Start: 07-25-2024 ambulatory Donna Will Facility :[facility] Start: 07-23-2024 End: 07-23-[address] Donna Will MD Work Phone: [facility] Work Phone: Start: 07-23-2024 End: 07-23-2024 Dr. Tobi Zapata MD -Laboratory [place] Work Phone: Start: 07-23-2024 End: 07-23-2024 ambulatory Donna Will Facility:[facility] Start: 07-21-2024 End: 07-21-[address] Donna Will MD Work Phone: [facility] Work Phone: Start: 07-21-2024 End: 07-21-2024 Dr. Wilberto Villafuerte MD -Laboratory [facility] Work Phone: Start: 07-20-2024 End: 07-21-[address] Donna Will MD Work Phone: [facility] Work Phone: Start: 07-20-2024 End: 07-20-2024 Dr. Tobi Zapata MD -[facility] Work Phone: Start: 07-14-2024 End: 07-14-[address] Donna Will MD Work Phone: [facility] Work Phone: Start: 07-14-2024 End: 07-14-2024 Dr. Wilberto Villafuerte MD -Home Health Lab Start: 07-12-2024 End: 07-12-[address] Donna Will MD Work Phone: [facility] Work Phone: Start: 07-12-2024 End: 07-12-2024 GERA Naik -Pulmonary Services/Neurology Work Phone: Start: 07-12-2024 End: 07-12-2024 ambulatory Donna Will Facility:[facility] Start: 07-08-2024 End: 07-08-2024 Emergency department patient visit Dr. Donna Will MD Work Phone: [facility] Work Phone: Start: 07-08-2024 End: 07-08-2024 Dr. Donna Will MD Work Phone: -Emergency Department Work Phone: Start: 07-05-2024 End: 07-05-[address] Donna Will MD Work Phone: [facility] Work Phone: Start: 07-05-2024 End: 07-05-2024 Dr. Wilberto Villafuerte MD -Home Health Lab Start: 07-05-2024 End: 07-05-2024 ambulatory Donna Will Facility:[facility] Start: 06-30-2024 End: 06-30-2024 Dr. Donna Will MD -[facility] Work Phone: Start: 06-30-2024 End: 06-30-2024 ambulatory Donna Will Facility:[facility] Start: 06-29-2024 End: 06-29-2024 Dr. Wilberto Villafuerte MD -Medical Out Work Phone: Start: 06-29-2024 End: 06-29-[address] Donna Will MD Work Phone: [facility] Work Phone: Start: 06-28-2024 Dr. Wilberto astorga MD -Home Health Lab Start: 06-25-2024 Dr. Jordan Ortiz MD - [facility] Work Phone: Start: 06-24-2024 Dr. Jordan Ortiz MD - [facility] Work Phone: Start: 06-23-2024 Dr. Jordan Ortiz MD - [facility] Work Phone: Start: 06-23-2024 Dr. Anthony Singleton DO -[facility] Start: 06-22-2024 ambulatory Donna Will Facility :[facility] Start: 06-22-2024 Dr. Chicho Carson MD -[facility] Start: 06-22-2024 Dr[facility] Work Phone: Start: 06-22-2024 Dr. Anthony Singleton DO -[facility] Start: 06-21-2024 ambulatory [facility] Facility :[facility] Start: 06-21-2024 Dr. Marco Dang MD -[facility] Start: 06-21-2024 Dr. [facility] Work Phone: Start: 06-20-2024 ambulatory Mable Pritchard Facility:[facility] Start: 06-20-2024 End: 06-25-2024 Evaluation and management of inpatient [facility] Facility:[facility] Start: 06-20-2024 End: 06-25-2024 Dr. Jordan Ortiz MD -[facility] Work Phone: Start: 05-27-2024 Dr. Tobi Zapata MD -[facility] Start: 05-18-2024 End: 05-18-2024 GERA Naik -[facility] Work Phone: Start: 05-18-2024 End: 05-18-2024 ambulatory [facility] Facility:[facility] Start: 04-27-2024 End: 04-27-2024 Mratha Dodson SALESPERSON JEWELRY- -[facility] Work Phone: Start: 04-27-2024 End: 04-27-2024 ambulatory [facility] Facility:[facility] Start: 04-22-2024 End: 04-22-[address] [facility] Work Phone: Start: 04-22-2024 End: 04-22-2024 ambulatory [facility] Facility:[facility] Start: 04-08-2024 Dr. Huang Lazcano MD -[facility] Work Phone: Start: 04-07-2024 Khai Galeana DO [facility] Start: 04-07-2024 Dr. Huang Lazcano MD -[facility] Work Phone: Start: 04-07-2024 Dr. Anthony Singleton DO -[facility] Start: 04-06-2024 Khai Galeana DO -[facility] Start: 04-06-2024 Dr. Huang Lazcano MD -[facility] Work Phone: Start: 04-06-2024 Dr. Anthony Singleton DO [facility] Start: 04-05-2024 ambulatory Khai Galeana Facility :[facility] Start: 04-05-2024 End: 04-08-2024 Evaluation and management of inpatient Donna Will Facility:[facility] Start: 04-05-2024 End: 04-08-2024 Dr. Huang Lazcano MD -Intensive Care Unit Work Phone: Start: 03-16-2024 End: 03-16-2024 Elizabeth HILARIO -[facility] Work Phone: Start: 03-16-2024 End: 03-16-2024 ambulatory Elizabeth HILARIO Facility:[facility] Start: 03-05-2024 End: 03-05-2024 SALESPERSON JEWELRY Gris Naik -[facility] Work Phone: Start: 03-05-2024 End: 03-05-2024 ambulatory Gris Naik Facility:[facility] Start: 03-05-2024 End: 03-05-2024 ambulatory Gris Naik Facility:[facility] Start: 03-03-2024 End: 03-03-2024 Dr. Donna Will MD -[facility] Work Phone: Start: 03-03-2024 End: 03-03-2024 ambulatory Donna Will Facility:[facility] Start: 02-27-2024 End: 02-27-2024 ambulatory More Pulido NP Facility:[facility] Start: 01-27-2024 End: 01-27-2024 ambulatory Donna Will Facility:[facility] Start: 12-03-2023 End: 12-03-2023 ambulatory Donna Suman Facility:[facility] Start: 11-17-2023 End: 11-17-2023 ambulatory Donna Suman Facility:[facility] Start: 11-15-2023 End: 11-15-2023 ambulatory Donna Suman Facility:[facility] Start: 11-14-2023 ambulatory Huang Lazcano Fac ility:[facility] Start: 11-14-2023 End: 11-24-2023 Evaluation and management of inpatient Donnaglo Will Facility:[facility] Start: 11-09-2023 ambulatory Donna Suman Facility :[facility] Start: 11-09-2023 End: 11-11-2023 Evaluation and management of inpatient [facility] Facility:[facility] Start: 10-31-2023 ambulatory Elizabeth HILARIO Facility:[facility] Start: 10-30-2023 End: 10-31-2023 ambulatory [facility] Facility:[facility] Start: 09-29-2023 End: 09-29-2023 ambulatory [facility] Facility:[facility] Start: 09-24-2023 End: 09-24-2023 ambulatory [facility] Facility:[facility] Start: 09-19-2023 End: 09-19-2023 ambulatory [facility] Facility:[facility] Start: 09-15-2023 End: 09-15-2023 ambulatory [facility] Facility:[facility] Start: 09-09-2023 ambulatory Donna Suman Facility :[facility] Start: 09-04-2023 End: 09-04-2023 ambulatory Donna Suman Facility:[facility] Start: 09-04-2023 End: 09-04-2023 ambulatory Donna Suman Facility:[facility] Start: 09-04-2023 End: 09-04-2023 ambulatory Donna Suman Facility:[facility] Start: 06-05-2023 Dr. Donna Garcia hner Work Phone: [facility] Work Phone: Start: 06-05-2023 Dr. Donna Garcia hner Work Phone: [facility] Start: 06-05-2023 End: 06-05-[address] Donna Will Work Phone: [facility] Work Phone: Start: 06-05-2023 End: 06-05-2023 Dr. Donna Will Work Phone: [facility] Work Phone: Start: 05-28-2023 End: 05-28-2023 Dr. Donna Will Work Phone: [facility] Work Phone: Start: 05-12-2023 End: 05-12-[address] Donna Will Work Phone: [facility] Work Phone: Start: 05-12-2023 End: 05-12-2023 Dr. Donna Will Work Phone: [facility]-Labor[facility] Work Phone: Start: 05-09-2023 Dr. Donna de souza Work Phone: [facility] Start: 05-07-2023 End: 05-07-2023 Dr. Donna Will Work Phone: [facility] Work Phone: Start: 05-07-2023 End: 05-07-[address] Donna Will Work Phone: [facility] Work Phone: Start: 05-07-2023 End: 05-07-2023 Dr. Donna Will Work Phone: [facility] Work Phone: Start: 04-25-2023 End: 04-25-[address] Donna Will Work Phone: [facility] Work Phone: Start: 04-25-2023 End: 04-25-2023 Dr. Donna Will Work Phone: [facility] Work Phone: Start: 04-03-2023 End: 04-24-[address] [facility] [facility] Work Phone: Start: 04-03-2023 End: 04-24-2023 Dr. Donna Will Work Phone: [facility] Start: 03-27-2023 End: 03-27-2023 Dr. Donna Will Work Phone: [facility] Work Phone: Start: 03-21-2023 Dr. Donna Garcia hner Work Phone: [facility] Work Phone: Start: 03-21-2023 ambulatory Adri Perez RN [facility] Clinical [facility] Start: 03-21-2023 Patient encounter procedure Adri Perez [facility] Start: 03-20-2023 Dr. Donna Garcia hner Work Phone: [facility] Work Phone: Start: 03-20-2023 Dr. Donna Garcia hner Work Phone: [facility] Start: 03-19-2023 Dr. Donna Garcia hner Work Phone: [facility] Start: 03-19-2023 Dr. Donna Garcia hner Work Phone: [facility] Work Phone: Start: 03-18-2023 Dr. Donna Garcia hner Work Phone: [facility] Work Phone: Start: 03-18-2023 Dr. Donna Garcia hner Work Phone: [facility] Start: 03-18-2023 Dr. Donna Garcia hner Work Phone: [facility] Start: 03-17-2023 Dr. Donna Garcia hner Work Phone: [facility] Start: 03-17-2023 Dr. Donna Garcia hner Work Phone: [facility] Start: 03-17-2023 Dr. Donna Garcia hner Work Phone: [facility] Work Phone: Start: 03-17-2023 Dr. Donna Garcia hner Work Phone: [facility] Start: 03-16-2023 Evaluation and management of inpatient Dr. Donna Will Work Phone: [facility] Work Phone: Start: 03-16-2023 End: 03-21-2023 Dr. Donna Will Work Phone: [facility] Work Phone: Start: 03-06-2023 Dr. Donna Garcia hner Work Phone: [facility] Work Phone: Start: 03-06-2023 End: 03-06-2023 Dr. Donna Will Work Phone: [facility] Work Phone: Start: 03-05-2023 End: 03-05-2023 Dr. Donna Will Work Phone: [facility] Work Phone: Start: 03-04-2023 Dr. Donna Garcia hner Work Phone: [facility] Work Phone: Start: 03-03-2023 End: 03-06-2023 Evaluation and management of inpatient Dr. Donna Will Work Phone: [facility] Work Phone: Start: 03-03-2023 End: 03-06-2023 Dr. Donna Will Work Phone: [facility]Pro[facility] Work Phone: Start: 03-02-2023 Dr. Donna Garcia hner Work Phone: [facility] Work Phone: Start: 03-01-2023 Dr. Donna Garcia hner Work Phone: [facility] Work Phone: Start: 02-28-2023 Dr. Donna Garcia hner Work Phone: [facility] Work Phone: Start: 02-28-2023 Evaluation and management of inpatient Dr. Donna iWll [facility] Work Phone: Start: 02-28-[address] Paula Will Work Phone: [facility] Work Phone: Start: 02-06-[address] Donna Will Work Phone: [facility] Start: 02-06-2023 Dr. Donna Garcia hner Work Phone: [facility] Start: 01-30-[address] Donna Will Work Phone: [facility] Start: 01-28-2023 End: 01-28-[address] [facility] Work Phone: Start: 01-28-2023 End: 01-28-2023 Dr. [facility] Work Phone: Start: 01-25-2023 End: 01-25-[address] Donna Will Work Phone: [facility] Work Phone: Start: 01-25-2023 End: 01-25-[address] Donna Will Work Phone: [facility] Work Phone: Start: 01-25-2023 End: 01-25-2023 Dr. Donna Will Work Phone: [facility] Work Phone: Start: 01-21-2023 End: 01-21-[address] Donna Will Work Phone: [facility] Work Phone: Start: 01-21-2023 End: 01-21-2023 Dr. Donna Will Work Phone: [facility] Work Phone: Start: 11-26-2022 End: 11-26-[address] Donna Will Work Phone: [facility] Work Phone: Start: 11-26-2022 End: 11-26-2022 Dr. Donna Will Work Phone: [facility] Work Phone: Start: 11-21-2022 End: 11-21-[address] Donna Will Work Phone: [facility] [place] Work Phone: Start: 11-21-2022 End: 11-21-2022 Dr. Donna Will Work Phone: [facility] [place] Work Phone: Start: 11-17-2022 Non-patient / Non-visit SALESPERSON JEWELRY-C DANNIELLE PIÑA Work Phone: [facility] Work Phone: Start: 11-17-2022 Dr. Donna Garcia hner Work Phone: [facility] Work Phone: Start: 11-16-2022 Non-patient / Non-visit SALESPERSON JEWELRY-C DANNIELLE PIÑA Work Phone: [facility] Work Phone: Start: 11-16-2022 Dr. Donna Garcia hner Work Phone: [facility] Work Phone: Start: 11-15-2022 End: 11-17-2022 Evaluation and management of inpatient SALESPERSON JEWELRY-C DANNIELLE PIÑA Work Phone: [facility] Work Phone: Start: 11-15-2022 Non-patient / Non-visit SALESPERSON JEWELRY-C DANNIELLE PIÑA Work Phone: [facility] Work Phone: Start: 11-15-2022 End: 11-17-2022 Dr. Donna Will Work Phone: [facility] Work Phone: Start: 11-08-2022 Registered Recurring SALESPERSON JEWELRY-C SONY Purcell PIÑA Work Phone: [facility] Start: 10-29-2022 End: 10-29-2022 Patient encounter procedure SALESPERSON JEWELRY-C DANNIELLE PIÑA Work Phone: [facility] Work Phone: Start: 09-30-2022 End: 09-30-2022 Patient encounter procedure SALESPERSON JEWELRY-C DANNIELLE PIÑA Work Phone: [facility] Work Phone: Start: 09-13-2022 End: 09-13-2022 Patient encounter procedure SALESPERSON JEWELRY-C DANNIELLE PIÑA Work Phone: [facility] Work Phone: Start: 09-04-2022 End: 09-04-2022 Patient encounter procedure SALESPERSON JEWELRY-C DANNIELLE PIÑA Work Phone: [facility] Work Phone: Start: 08-29-2022 End: 08-29-2022 Emergency department patient visit SALESPERSON JEWELRY-C DANNIELLE PIÑA Work Phone: [facility] Work Phone: Start: 08-29-2022 End: 08-29-2022 Patient encounter procedure SALESPERSON JEWELRY-C DANNIELLE PIÑA Work Phone: [facility] Work Phone: Start: 08-19-2022 End: 08-19-2022 Patient encounter procedure SALESPERSON JEWELRY-C DANNIELLE PIÑA Work Phone: [facility] Work Phone: Start: 08-14-2022 End: 08-14-2022 Patient encounter procedure SALESPERSON JEWELRY-C DANNIELLE PIÑA Work Phone: [facility] [place] Work Phone: Start: 08-12-2022 End: 08-12-2022 Patient encounter procedure SALESPERSON JEWELRY-C DANNIELLE PIÑA Work Phone: [facility] Work Phone: Start: 08-08-2022 End: 08-08-2022 Patient encounter procedure SALESPERSON JEWELRY-C DANNIELLE PIÑA Work Phone: [facility] Work Phone: Start: 08-08-2022 Registered Recurring SALESPERSON JEWELRY-C WAND A PIÑA Work Phone: [facility] Start: 07-23-2022 End: 07-23-2022 Patient encounter procedure SALESPERSON JEWELRY-C DANNIELLE PIÑA Work Phone: [facility] Work Phone: Start: 07-09-2022 End: 07-09-2022 Patient encounter procedure SALESPERSON JEWELRY-C DANNIELLE PIÑA Work Phone: [facility] Work Phone: Start: 06-19-2022 End: 06-19-2022 ambulatory SALESPERSON JEWELRY-C DANNIELLE PIÑA Work Phone: [facility] Work Phone: Start: 06-19-2022 End: 06-19-2022 Patient encounter procedure SALESPERSON JEWELRY-C DANNIELLE PIÑA Work Phone: [facility] Start: 06-05-2022 End: 06-05-2022 ambulatory SALESPERSON JEWELRY-C DANNIELLE PIÑA Work Phone: [facility] Work Phone: Start: 06-05-2022 End: 06-05-2022 Patient encounter procedure SALESPERSON JEWELRY-C DANNIELLE PIÑA Work Phone: [facility] Start: 05-29-2022 End: 05-29-2022 Patient encounter procedure SALESPERSON JEWELRY-C DANNIELLE PIÑA [facility] Start: 05-16-2022 Non-patient / Non-visit SALESPERSON JEWELRY-C DANNIELLE PIÑA Work Phone: [facility] Start: 05-15-2022 End: 05-15-2022 ambulatory SALESPERSON JEWELRY-C DANNIELLE PIÑA Work Phone: [facility] Work Phone: Start: 05-15-2022 End: 05-15-2022 Patient encounter procedure SALESPERSON JEWELRY-C DANNIELLE PIÑA [facility] Start: 05-14-2022 Non-patient / Non-visit SALESPERSON JEWELRY-C DANNIELLE PIÑA Work Phone: [facility] Start: 05-13-2022 Registered Recurring SALESPERSON JEWELRY-C WAND A PIÑA Work Phone: [facility] Start: 05-13-2022 End: 05-13-2022 ambulatory SALESPERSON JEWELRY-C DANNIELLE PIÑA Work Phone: [facility] Work Phone: Start: 05-13-2022 End: 05-13-2022 Patient encounter procedure SALESPERSON JEWELRY-C DANNIELLE PIÑA [facility] Start: 04-29-2022 End: 04-29-2022 Patient encounter procedure SALESPERSON JEWELRY-C DANNIELLE PIÑA Work Phone: [facility] Start: 03-22-2022 End: 03-22-2022 ambulatory SALESPERSON JEWELRY-C DANNIELLE PIÑA Work Phone: [facility] Work Phone: Start: 03-22-2022 End: 03-22-2022 Patient encounter procedure SALESPERSON JEWELRY-C DANNIELLE PIÑA Work Phone: [facility] Start: 03-22-2022 End: 03-22-2022 SALESPERSON JEWELRY-C DANNIELLE PIÑA Work Phone: [facility] Start: 03-09-2022 End: 03-09-2022 ambulatory SALESPERSON JEWELRY-C DANNIELLE PIÑA Work Phone: [facility] Work Phone: Start: 03-09-2022 End: 03-09-2022 Patient encounter procedure SALESPERSON JEWELRY-C DANNIELLE PIÑA Work Phone: [facility], Specimen Start: 03-09-2022 End: 03-09-2022 SALESPERSON JEWELRY-C DANNIELLE PIÑA [facility] Start: 02-27-2022 End: 02-27-2022 Patient encounter procedure SALESPERSON JEWELRY-C DANNIELLE PIÑA [facility] Start: 02-27-2022 End: 02-27-2022 SALESPERSON JEWELRY-C DANNIELLE PIÑA Work Phone: [facility] Start: 02-16-2022 Non-patient / Non-visit SALESPERSON JEWELRY-C DANNIELLE PIÑA Work Phone: [facility] Start: 02-16-2022 SALESPERSON JEWELRY-C DANNIELLE SIM MONS Work Phone: [facility] Start: 02-16-2022 Non-patient / Non-visit SALESPERSON JEWELRY-C DANNIELLE PIÑA Work Phone: [facility] Start: 02-16-2022 SALESPERSON JEWELRY-C DANNIELLE SIM MONS Work Phone: [facility] Start: 02-15-2022 Non-patient / Non-visit SALESPERSON JEWELRY-C DANNIELLE PIÑA Work Phone: [facility] Start: 02-15-2022 SALESPERSON JEWELRY-C DANNIELLE SIM MONS Work Phone: [facility] Start: 02-15-2022 Non-patient / Non-visit SALESPERSON JEWELRY-C DANNIELLE PIÑA Work Phone: [facility] Start: 02-15-2022 SALESPERSON JEWELRY-C DANNIELLE SIM MONS Work Phone: [facility] Start: 02-14-2022 Non-patient / Non-visit SALESPERSON JEWELRY-C DANNIELLE PIÑA Work Phone: [facility] Start: 02-14-2022 End: 02-16-2022 Evaluation and management of inpatient SALESPERSON JEWELRY-C DANNIELLE PIÑA [facility] Start: 02-14-2022 End: 02-16-2022 SALESPERSON JEWELRY-C DANNIELLE PIÑA [facility] Start: 02-06-2022 End: 02-06-2022 ambulatory SALESPERSON JEWELRY-C DANNIELLE PIÑA Work Phone: [facility] Work Phone: Start: 02-06-2022 End: 02-06-2022 Patient encounter procedure SALESPERSON JEWELRY-C DANNIELLE PIÑA Work Phone: [facility], Specimen Start: 02-06-2022 End: 02-06-2022 SALESPERSON JEWELRY-C DANNIELLE PIÑA Work Phone: [facility], Specimen Start: 02-05-2022 Registered Recurring SALESPERSON JEWELRY-C EDWARDD A PIÑA Work Phone: [facility] Start: 02-05-2022 End: 02-05-2022 Patient encounter procedure SALESPERSON JEWELRY-C DANNIELLE PIÑA Work Phone: [facility] Start: 02-05-2022 End: 02-05-2022 SALESPERSON JEWELRY-C DANNIELLE PIÑA Work Phone: [facility] Start: 01-15-2022 End: 01-15-[address] Donna Will Work Phone: [facility] Work Phone: Start: 01-15-2022 End: 01-15-[address] Donna Will Work Phone: [facility], Specimen Start: 01-15-2022 End: 01-15-2022 SALESPERSON JEWELRY-C DANNIELLE PIÑA Work Phone: [facility], Specimen Start: 01-14-[address] Donna Will Work Phone: [facility] Start: 01-08-2022 End: 01-08-[address] Donna Will Work Phone: [facility] Start: 01-08-2022 End: 01-08-2022 SALESPERSON JEWELRY-C DANNIELLE PIÑA Work Phone: [facility] Start: 12-26-[address] Donna Will Work Phone: [facility] Start: 12-26-2021 End: 12-26-[address] Donna Will Work Phone: [facility] Start: 12-26-2021 End: 12-26-2021 SALESPERSON JEWELRY-C DANNIELLE PIÑA Work Phone: [facility] Start: 12-21-2021 End: 12-21-[address] Donna Will Work Phone: [facility] Work Phone: Start: 12-21-2021 End: 12-21-[address] Donna Will Work Phone: [facility] Start: 12-21-2021 End: 12-21-2021 SALESPERSON JEWELRY-C DANNIELLE PIÑA Work Phone: [facility] Start: 12-11-2021 Non-patient / Non-visit Dr. Donna Will Work Phone: [facility] Start: 12-11-2021 SALESPERSON JEWELRY-C DANNIELLE SIM MONS Work Phone: [facility] Start: 12-10-2021 Non-patient / Non-visit Dr. Donna Will Work Phone: [facility] Start: 12-10-2021 SALESPERSON JEWELRY-C DANNIELLE SIM MONS Work Phone: [facility] Start: 12-09-2021 Non-patient / Non-visit Dr. Donna Will Work Phone: [facility] Start: 12-09-2021 SALESPERSON JEWELRY-C DANNIELLE SIM MONS Work Phone: [facility] Start: 12-09-2021 Non-patient / Non-visit Dr. Donna Will Work Phone: [facility] Start: 12-09-2021 SALESPERSON JEWELRY-C DANNIELLE SIM MONS Work Phone: [facility] Start: 12-08-2021 Non-patient / Non-visit Dr. Donna Will Work Phone: [facility] Start: 12-08-2021 End: 12-11-2021 Evaluation and management of inpatient Dr. Donna Will Work Phone: [facility] Surgical 3 Start: 12-08-2021 End: 12-11-2021 SALESPERSON JEWELRY-C DANNIELLE PIÑA Work Phone: [facility] 3 Start: 11-16-2021 End: 11-16-[address] Donna Will Work Phone: [facility], Specimen Start: 10-26-2021 Non-patient / Non-visit Dr. Donna Will Work Phone: [facility] Start: 10-25-2021 Non-patient / Non-visit Dr. Donna Will Work Phone: [facility] Start: 10-25-2021 Non-patient / Non-visit Dr. Donna Will Work Phone: [facility] Start: 10-24-2021 Non-patient / Non-visit Dr. Donna Will Work Phone: [facility] Start: 10-24-2021 Non-patient / Non-visit Dr. Donna Will Work Phone: [facility] Start: 10-23-2021 Non-patient / Non-visit Dr. Donna Will Work Phone: [facility] Start: 10-23-2021 End: 10-26-2021 Evaluation and management of inpatient Dr. Donna Will [facility] Start: 10-23-2021 End: 10-23-[address] Donna Will [facility] Start: 10-16-2021 End: 10-16-[address] Donna Will Work Phone: [facility] Start: 10-09-2021 End: 10-09-[address] Donna Will Work Phone: [facility] Start: 10-02-2021 Non-patient / Non-visit Dr. Donna Will Work Phone: [facility] Start: 10-01-2021 End: 10-02-2021 Evaluation and management of inpatient Dr. Donna Will [facility] Start: 09-04-2021 Non-patient / Non-visit Dr. Donna Will Work Phone: [facility] Start: 09-04-2021 End: 09-04-[address] Donna Will Work Phone: [facility] Start: 09-03-2021 End: 09-03-[address] Donna Will Work Phone: [facility] Start: 08-07-2021 Non-patient / Non-visit Dr. Donna Will Work Phone: [facility] Start: 08-06-2021 End: 08-07-2021 Evaluation and management of inpatient Dr. Donna Will [facility] Start: 08-03-2021 End: 08-03-[address] Donna Will Work Phone: [facility], Specimen Start: 08-01-2021 End: 08-01-[address] Donna Will Work Phone: [facility], Spec[facility] Start: 07-26-2021 End: 07-26-[address] Donna Will Work Phone: [facility] Start: 07-24-2021 End: 07-24-[address] Donna Will [facility] Start: 06-25-2021 End: 06-25-[address] Donna Will Work Phone: [facility] Start: 06-19-2021 Non-patient / Non-visit Dr. Donna Will Work Phone: [facility] Start: 06-19-2021 Dr. Donna de souza Work Phone: [facility] Start: 06-15-2021 End: 06-15-[address] Donna Will [facility] Start: 06-15-2021 End: 06-15-2021 Dr. Donna Will [facility] Start: 05-29-2021 End: 05-29-[address] Donna Will Work Phone: [facility] Start: 05-29-2021 End: 05-29-2021 Dr. Donna Will Work Phone: [facility] Start: 05-29-2021 End: 05-29-[address] Donna Will Work Phone: [facility] Start: 05-29-2021 End: 05-29-2021 Dr. Donna Will Work Phone: [facility] Start: 05-04-2021 End: 05-18-2021 Evaluation and management of inpatient Dr. Donna Will [facility] Start: 05-04-2021 End: 05-18-2021 Dr. Donna Will [facility] Start: 05-04-2021 Non-patient / Non-visit Dr. Donna Will Work Phone: [facility] Start: 05-04-2021 Dr. Donna Garcia hner Work Phone: [facility] Start: 05-04-2021 Non-patient / Non-visit Dr. Donna Will Work Phone: [facility] Start: 05-04-2021 Dr. Donna Garcia hner Work Phone: [facility] Start: 05-03-2021 Non-patient / Non-visit Dr. Donna Will Work Phone: [facility] Start: 05-03-2021 Dr. Donna Garcia hner Work Phone: [facility] Start: 05-02-2021 Non-patient / Non-visit Dr. Donna Will Work Phone: [facility] Start: 05-02-2021 Dr. [facility] Start: 05-02-2021 Non-patient / Non-visit Dr. [...] / Non-[facility] Start: 05-01-2021 Dr. Donna Garcia hner Work Phone: [facility] Start: 05-01-2021 Non-patient / Non-visit Dr. Donna Will Work Phone: [facility] Start: 05-01-2021 Dr. Donna Garcia hner Work Phone: [facility] Start: 05-01-2021 Non-patient / Non-visit Dr. Donna Will Work Phone: [facility] Start: 05-01-2021 Dr. Donna Garcia hner Work Phone: [facility] Start: 04-30-2021 Non-patient / Non-visit Dr. Donna Will Work Phone: [facility] Start: 04-30-2021 Dr. Donna Garcia hner Work Phone: [facility] Start: 04-29-2021 Non-patient / Non-visit Dr. Donna Will Work Phone: [facility] Start: 04-29-2021 End: 05-04-2021 Evaluation and management of inpatient Dr. Donna Will [facility] Start: 04-29-2021 End: 05-04-2021 Dr. Donna Will [facility] Start: 04-26-2021 End: 04-29-2021 Evaluation and management of inpatient Dr. Donna Will [facility] Start: 04-26-2021 Non-patient / Non-visit Dr. Donna Will Work Phone: [facility] Start: 04-26-2021 Non-patient / Non-visit Dr. Donna Will Work Phone: [facility] Start: 04-26-2021 End: 04-30-2021 Dr. Donna Will [facility] Start: 04-25-2021 Non-patient / Non-visit Dr. Donna Will Work Phone: [facility] Start: 04-25-2021 Dr. Donna Garcia hner Work Phone: [facility] Start: 04-25-2021 Non-patient / Non-visit Dr. Donna Will Work Phone: [facility] Start: 04-25-2021 Dr. Donna Garcia hner Work Phone: [facility] Start: 04-24-2021 Non-patient / Non-visit Dr. Donna Will Work Phone: [facility] Start: 04-24-2021 Dr. Donna Garcia hner Work Phone: [facility] Start: 04-24-2021 Non-patient / Non-visit Dr. Donna Will Work Phone: [facility] Start: 04-24-2021 Dr. Donna Garcia hner Work Phone: [facility] Start: 04-23-2021 Non-patient / Non-visit Dr[facility] Donna Will [facility] Start: 04-23-2021 Dr. Donna francor Work Phone: [facility] Start: 04-23-2021 Non-patient / Non-visit Dr. Donna Will Work Phone: [facility] Start: 04-23-2021 Dr. Donna Garcia hner Work Phone: [facility] Start: 04-22-2021 End: 04-26-2021 Evaluation and management of inpatient Dr. Donna Will [facility] Start: 04-22-2021 End: 04-26-2021 Dr. Donna Will Work Phone: [facility] Surgical 3 Start: 04-21-2021 Non-patient / Non-visit Dr. Donna Will Work Phone: [facility] Start: 04-21-2021 Dr. Donna Garcia hner Work Phone: [facility] Start: 04-19-2021 End: 04-19-[address] Donna Will Work Phone: [facility] Internal Medicine Start: 04-19-2021 End: 04-19-2021 Dr. Donna Will Work Phone: [facility] Internal Medicine Start: 04-11-2021 Non-patient / Non-visit Dr. Donna Will Work Phone: [facility] Start: 04-11-2021 Dr. Donna Garcia hner Work Phone: [facility] Start: 04-10-2021 Non-patient / Non-visit [...] / Non-visit Dr. Donna Will Work Phone: [facility] Start: 04-09-2021 Dr. Donna Garcia hner Work Phone: [facility] Start: 04-08-2021 End: 04-11-2021 Evaluation and management of inpatient [facility] Start: 04-08-2021 End: 04-11-2021 Dr. Donna Will [facility] Start: 04-05-2021 End: 04-05-2021 Dr. Donna Will Work Phone: [facility] Start: 04-04-2021 End: 04-04-2021 Dr. Donna Will Work Phone: [facility] Internal Medicine Start: 04-04-2021 Dr. Donna Garcia hner Work Phone: [facility] Internal Medicine Start: 03-28-2021 End: 03-28-2021 Dr. Donna Will Work Phone: [facility] Internal Medicine Start: 03-25-2021 Dr. Donna Garcia hner Work Phone: [facility] Start: 03-23-2021 Dr. Donna Garcia hner Work Phone: [facility] Start: 03-22-2021 End: 03-25-2021 Dr. Donna Will Work Phone: [facility] Start: 03-14-2021 End: 03-14-2021 Dr. Donna Will Work Phone: [facility]-Emergency Department Start: 02-05-2021 Dr. Donna Garcia hner Work Phone: [facility]-Laboratory, [facility] Procedures Date Procedure Procedure Detail [...] Work Phone: Start: 11-15-2022 Plain chest X-ray [employer] DANNIELLE PIÑA Work Phone: Start: 07-29-2022 Measurement of occult blood in stool specimen using immunoassay [employer] DANNIELLE PIÑA Work Phone: Start: 07-09-2022 Computed tomography of abdomen and pelvis with contrast [employer] DANNIELLE PIÑA Work Phone: Start: 06-05-2022 Videoswallow [employer] DANNIELLE PIÑA Work Phone: Start: 05-03-2022 Measurement of occult blood in stool specimen using immunoassay [employer] DANNIELLE PIÑA Work Phone: Start: 03-22-2022 Videoswallow [employer] DANNIELLE PIÑA Work Phone: Start: 02-15-2022 Plain chest X-ray [employer] DANNIELLE PIÑA Work Phone: Start: 02-14-2022 CT angiography of chest with contrast [employer] DANNIELLE PIÑA Work Phone: Start: 02-14-2022 Plain chest X-ray [employer] DANNIELLE PIÑA Work Phone: Start: 02-14-2022 CT of head without contrast [employer] DANNIELLE S IMMONS Work Phone: Start: 12-10-[address] Donna mckeon Work Phone: Start: 12-08-2021 CT angiography of chest with contrast Dr. Donna Will Work Phone: Start: 12-08-2021 Plain chest X-ray Dr. Donna Will Work Phone: Start: 10-25-[address] oDnna mckeon Work Phone: Start: 10-25-2021 Plain chest [...] Phone: Bacteria identified in Blood by Culture [employer] DANNIELLE PIÑA Work Phone: Bacteria identified in Urine by Culture [employer] DANNIELLE PIÑA Work Phone: H/O: surgery Dr. Donna pollock Work Phone: Investigation of tra nsfusion reaction Dr. Donna Will Work Phone: Investigation of tra nsfusion reaction [employer] DANNIELLE PIÑA Work Phone: Legionella pneumophi la antigen assay Dr. Donna Will Work Phone: Legionella pneumophi la antigen assay [employer] DANNIELLE PIÑA Work Phone: Measurement of occul t blood in stool specimen using immunoassay Dr. Donna Will Work Phone: Measurement of occul t blood in stool specimen using immunoassay [employer] DANNIELLE PIÑA Work Phone: Respiratory microbial culture Dr. Donna Will Work Phone: Respiratory microbial culture [employer] DANNIELLE PIÑA Work Phone: Respiratory Panel (PCR) Dr. Donna Will Work Phone: Respiratory Panel (PCR) [employer] DANNIELLE PIÑA Work Phone: SARS-CoV-2 & FLU Antigen (Rapid) Dr. Donna Will Work Phone: Streptococcus pneumoniae Antigen (M Dr. Donna Will Work Phone: Urine culture [employer] DANNIELLE SIM MONS Work Phone: Urine culture [employer] DANNIELLE SIM MONS Work Phone: [employer] DANNIELLE SIMM ONS Work Phone: [employer] DANNIELLE SIMM ONS Work Phone: [employer] DANNIELLE SIMM ONS Work Phone: [employer] DANNIELLE SIMM ONS Work Phone: [employer] DANNIELLE SIMM ONS Work Phone: [employer] DANNIELLE SIMM ONS Work Phone: Plan of Treatment Date Care Activity Detail Author Start: 07-20-2024 [facility] Start: 07-20-2024 Patient referral [facility] Work Phone: Start: 07-08-2024 [facility] Start: 07-08-2024 Blood culture [facility] Start: 07-08-2024 End: 07-08-2024 [facility] Start: 07-01-2024 Measurement of respiratory function [facility] Start: 06-25-2024 Patient discharge [facility] Start: 06-24-2024 Referral to service [facility] Start: 06-22-2024 Consultation [facility] Start: 06-21-2024 Oxygen therapy [facility] Start: 06-21-2024 [facility] Start: 06-20-2024 Dual pressure spontaneous ventilation support [facility] Start: 06-20-2024 Application of intermittent pneumatic compression device [facility] Start: 06-20-2024 Following clinical pathway protocol [facility] Start: 06-20-2024 Continuous pulse oximetry [facility] Start: 06-20-2024 Assessment of risk of venous thromboembolism [facility] Start: 06-20-2024 Care regimes management [facility] Start: 06-20-2024 Catheterization of vein [facility] Start: 06-20-2024 Elevation of head of bed [facility] Start: 06-20-2024 Inhalation therapy procedure [facility] Start: 06-20-2024 Insertion of catheter into peripheral vein [facility] Start: 06-20-2024 Measuring intake and output [facility] Start: 06-20-2024 Notification of physician [facility] Start: 06-20-2024 Patient education [facility] Start: 06-20-2024 Providing care according to standard [facility] Start: 06-20-2024 Referral to occupational therapist [facility] Start: 06-20-2024 Referral to service [facility] Start: 06-20-2024 Tobacco use cessation education [facility] Start: 06-20-2024 Vital signs measurements [facility] Start: 06-20-2024 End: 06-20-2024 [facility] Start: 06-20-2024 Admission procedure [facility] Start: 04-08-2024 Patient discharge [facility] Start: 04-07-2024 Oxygen therapy [facility] Start: 04-06-2024 End: 04-07-2024 [facility] Start: 04-06-2024 Referral to gastroenterology service [facility] Start: 04-06-2024 Administration of blood product [facility] Start: 04-06-2024 Care planning and problem solving actions [facility] Start: 04-06-2024 Inhalation therapy procedure [facility] Start: 04-05-2024 Following clinical pathway protocol [facility] Start: 04-05-2024 Transfusion of blood product [facility] Start: 04-05-2024 Application of intermittent pneumatic compression device [facility] Start: 04-05-2024 Cardiac monitoring [facility] Start: 04-05-2024 Care regimes management [facility] Start: 04-05-2024 Catheterization of vein [facility] Start: 04-05-2024 Consultation [facility] Start: 04-05-2024 Continuous pulse oximetry [facility] Start: 04-05-2024 Notification of physician [facility] Start: 04-05-2024 Vital signs measurements [facility] Start: 04-05-2024 End: 04-05-2024 [facility] Start: 04-05-2024 Admission procedure [facility] Start: 06-05-2023 Diagnostic bone marrow biopsies & aspirations [facility] Start: 06-05-2023 Procedure [facility] Start: 06-05-2023 Following clinical pathway protocol [facility] Start: 06-05-2023 Catheterization of vein [facility] Start: 06-05-2023 Oxygen therapy [facility] Start: 06-05-2023 Patient discharge [facility] Start: 06-05-2023 Vital signs measurements [facility] Start: 05-09-2023 Administration of blood product [facility] Start: 05-09-2023 [facility] Start: 03-21-2023 Referral to service [facility] Start: 03-21-2023 Patient discharge [facility] Start: 03-19-2023 Care planning and problem solving actions [facility] Start: 03-17-2023 [facility] Start: 03-17-2023 [facility] Start: 03-17-2023 Vital signs measurements [facility] Start: 03-17-2023 Methicillin resistant Staphylococcus aureus screening test [facility] Start: 03-17-2023 End: 03-18-2023 [facility] Start: 03-16-2023 [facility] Start: 03-16-2023 Speech therapy assessment [facility] Start: 03-16-2023 Following clinical pathway protocol [facility] Start: 03-16-2023 Lab findings surveillance [facility] Start: 03-16-2023 [facility] Start: 03-16-2023 Application of intermittent pneumatic compression device [facility] Start: 03-16-2023 Hospital admission, emergency, from emergency room, medical nature [facility] Start: 03-16-2023 Following clinical pathway protocol [facility] Start: 03-16-2023 Assessment of risk of venous thromboembolism [facility] Start: 03-16-2023 Care regimes management [facility] Start: 03-16-2023 Catheterization of vein [facility] Start: 03-16-2023 Consultation [facility] Start: 03-16-2023 Continuous pulse oximetry [facility] Start: 03-16-2023 Documentation procedure [facility] Start: 03-16-2023 Incentive spirometry [facility] Start: 03-16-2023 Inhalation therapy procedure [facility] Start: 03-16-2023 Insertion of catheter into peripheral vein [facility] Start: 03-16-2023 Measuring intake and output [facility] Start: 03-16-2023 Microbial culture, body fluid [facility] Start: 03-16-2023 Microscopic observation [Identifier] in Body fluid by Cyto stain [facility] Start: 03-16-2023 Notification of physician [facility] Start: 03-16-2023 Oxygen therapy [facility] Start: 03-16-2023 Patient referral to dietitian [facility] Start: 03-16-2023 Providing care according to standard [facility] Start: 03-16-2023 Referral to gastroenterology service [facility] Start: 03-16-2023 Referral to occupational therapist [facility] Start: 03-16-2023 Referral to service [facility] Start: 03-16-2023 Removal of urinary catheter [facility] Start: 03-16-2023 Respiratory therapy [facility] Start: 03-16-2023 Vital signs measurements [facility] Start: 03-16-2023 End: 03-16-2023 [facility] Start: 03-16-2023 Ultrasonic guidance for thoracentesis [facility] Start: 03-16-2023 Cell count and Differential panel - Body fluid [facility] Start: 03-16-2023 Glucose measurement, body fluid [facility] Start: 03-16-2023 Verification routine [facility] Start: 03-16-2023 Admission procedure [facility] Start: 03-16-2023 End: 03-16-2023 Administration of blood product [facility] Start: 03-16-2023 End: 03-16-2023 Blood culture [facility] Start: 03-16-2023 End: 03-17-2023 [facility] Start: 03-16-2023 Leukocyte reduced red blood cells [facility] Start: 03-06-2023 Patient discharge [facility] Start: 03-04-2023 Care regimes management [facility] Start: 03-04-2023 Notification of physician [facility] Start: 03-04-2023 [facility] Start: 03-03-2023 Admission procedure [facility] Start: 03-01-2023 Referral to service [facility] Start: 03-01-2023 Administration of blood product [facility] Start: 02-28-2023 Application of intermittent pneumatic compression device [facility] Start: 02-28-2023 Administration of blood product [facility] Start: 02-28-2023 Assessment of risk of venous thromboembolism [facility] Start: 02-28-2023 Care regimes management [facility] Start: 02-28-2023 Insertion of catheter into peripheral vein [facility] Start: 02-28-2023 Measuring intake and output [facility] Start: 02-28-2023 Notification of physician [facility] Start: 02-28-2023 Oxygen therapy [facility] Start: 02-28-2023 Physiotherapy of chest [facility] Start: 02-28-2023 Providing care according to standard [facility] Start: 02-28-2023 Provision of activity privileges [facility] Start: 02-28-2023 Referral to occupational therapist [facility] Start: 02-28-2023 Referral to service [facility] Start: 02-28-2023 Following clinical pathway protocol [facility] Start: 02-28-2023 Verification routine [facility] Start: 02-28-2023 Admission procedure [facility] Start: 02-28-2023 Hospital admission, emergency, from emergency room, medical nature [facility] Start: 02-28-2023 Leukocyte reduced red blood cells [facility] Start: 02-28-2023 End: 02-28-2023 [facility] Start: 02-28-2023 End: 02-28-2023 Administration of blood product [facility] Start: 02-28-2023 [facility] Start: 02-28-2023 Inhalation therapy procedure [facility] Start: 11-18-2022 Blood chemistry [facility] Start: 11-17-2022 Patient discharge [facility] Start: 11-17-2022 End: 11-17-2022 [facility] Start: 11-17-2022 Application of elastic bandage [facility] Start: 11-16-2022 End: 11-16-2022 Administration of blood product [facility] Start: 11-16-2022 Referral to service [facility] Start: 11-16-2022 Blood chemistry [facility] Start: 11-16-2022 Complete blood count [facility] Start: 11-15-2022 Care regimes management [facility] Start: 11-15-2022 Notification of physician [facility] Start: 11-15-2022 Following clinical pathway protocol [facility] Start: 11-15-2022 Ambulation without limitation [facility] Start: 11-15-2022 Assessment of risk of venous thromboembolism [facility] Start: 11-15-2022 Insertion of catheter into peripheral vein [facility] Start: 11-15-2022 Measuring intake and output [facility] Start: 11-15-2022 Oxygen therapy [facility] Start: 11-15-2022 Providing care according to standard [facility] Start: 11-15-2022 Referral to occupational therapist [facility] Start: 11-15-2022 Referral to service [facility] Start: 11-15-2022 End: 11-15-2022 [facility] Start: 11-15-2022 Troponin I measurement [facility] Start: 11-15-2022 End: 11-15-2022 Verification routine [facility] Start: 11-15-2022 Admission procedure [facility] Start: 10-01-2022 Administration of blood product [facility] Start: 10-01-2022 [facility] Start: 09-06-2022 Administration of blood product [facility] Start: 09-06-2022 [facility] Start: 04-29-2022 Patient referral [facility] Work Phone: Start: 02-16-2022 Patient discharge [facility] Start: 02-15-2022 Referral to service [facility] Start: 02-15-2022 Consultation [facility] Start: 02-15-2022 Methicillin resistant Staphylococcus aureus screening test [facility] Start: 02-15-2022 Continuous positive airway pressure ventilation treatment [facility] Start: 02-14-2022 Following clinical pathway protocol [facility] Start: 02-14-2022 Assessment of risk of venous thromboembolism [facility] Start: 02-14-2022 Elevation of head of bed [facility] Start: 02-14-2022 Incentive spirometry [facility] Start: 02-14-2022 Inhalation therapy procedure [facility] Start: 02-14-2022 Insertion of catheter into peripheral vein [facility] Start: 02-14-2022 Measuring intake and output [facility] Start: 02-14-2022 Oxygen therapy [facility] Start: 02-14-2022 Patient education [facility] Start: 02-14-2022 Providing care according to standard [facility] Start: 02-14-2022 Provision of activity privileges [facility] Start: 02-14-2022 Referral to occupational therapist [facility] Start: 02-14-2022 Referral to service [facility] Start: 02-14-2022 [facility] Start: 02-14-2022 Verification routine [facility] Work Phone: Start: 02-14-2022 Legionella pneumophila Ag [Presence] in Urine [facility] Work Phone: Start: 02-14-2022 Streptococcus pneumoniae antigen assay [facility] Work Phone: Start: 02-14-2022 [facility] Start: 02-14-2022 Admission procedure [facility] Start: 02-14-2022 [facility] Work Phone: Start: 02-14-2022 End: 02-14-2022 Blood culture [facility] Work Phone: Start: 02-14-2022 End: 02-14-2022 [facility] Work Phone: Start: 12-11-2021 Referral to service [facility] Start: 12-11-2021 Patient discharge [facility] Start: 12-10-2021 Catheterization of vein [facility] Start: 12-10-2021 Administration of blood product [facility] Start: 12-10-2021 [facility] Start: 12-09-2021 Respiratory secretion precautions [facility] Start: 12-09-2021 Referral to gastroenterology service [facility] Start: 12-08-2021 Application of intermittent pneumatic compression device [facility] Start: 12-08-2021 Assessment of risk of venous thromboembolism [facility] Start: 12-08-2021 Care regimes management [facility] Start: 12-08-2021 Elevation of head of bed [facility] Start: 12-08-2021 Incentive spirometry [facility] Start: 12-08-2021 Inhalation therapy procedure [facility] Start: 12-08-2021 Insertion of catheter into peripheral vein [facility] Start: 12-08-2021 Introduction of urinary catheter [facility] Start: 12-08-2021 Measuring intake and output [facility] Start: 12-08-2021 Oxygen therapy [facility] Start: 12-08-2021 Patient education [facility] Start: 12-08-2021 Providing care according to standard [facility] Start: 12-08-2021 Provision of activity privileges [facility] Start: 12-08-2021 Referral to service [facility] Start: 12-08-2021 [facility] Start: 12-08-2021 Following clinical pathway protocol [facility] Start: 12-08-2021 Streptococcus pneumoniae antigen assay [facility] Work Phone: Start: 12-08-2021 [facility] Start: 12-08-2021 Verification routine [facility] Work Phone: Start: 12-08-2021 Admission procedure [facility] Start: 12-08-2021 Blood culture [facility] Work Phone: Start: 12-08-2021 [facility] Work Phone: Start: 12-08-2021 Patient referral to dietitian [facility] Start: 10-26-2021 Patient discharge [facility] Work Phone: Start: 10-25-2021 Incentive spirometry [facility] Work Phone: Start: 10-24-2021 Catheterization of vein [facility] Work Phone: Start: 10-24-2021 Transfusion of blood product [facility] Work Phone: Start: 10-24-2021 Referral to service [facility] Work Phone: Start: 10-24-2021 [facility] Work Phone: Start: 10-24-2021 Administration of blood product [facility] Work Phone: Start: 10-24-2021 Leukocyte reduced red blood cells [facility] Work Phone: Start: 10-24-2021 End: 10-25-2021 [facility] Work Phone: Start: 10-24-2021 Referral to gastroenterology service [facility] Work Phone: Start: 10-24-2021 Administration of blood product [facility] Work Phone: Start: 10-23-2021 End: 10-24-2021 [facility] Work Phone: Start: 10-23-2021 Respiratory secretion precautions [facility] Work Phone: Start: 10-23-2021 Oxygen therapy [facility] Work Phone: Start: 10-23-2021 Care regimes management [facility] Work Phone: Start: 10-23-2021 Notification of physician [facility] Work Phone: Start: 10-23-2021 Ambulation without limitation [facility] Work Phone: Start: 10-23-2021 Assessment of risk of venous thromboembolism [facility] Work Phone: Start: 10-23-2021 Catheterization of vein [facility] Work Phone: Start: 10-23-2021 Insertion of catheter into peripheral vein [facility] Work Phone: Start: 10-23-2021 Providing care according to standard [facility] Work Phone: Start: 10-23-2021 Following clinical pathway protocol [facility] Work Phone: Start: 10-23-2021 Admission procedure [facility] Work Phone: Start: 10-23-2021 End: 10-23-2021 Blood culture [facility] Work Phone: Start: 10-23-2021 Inhalation therapy procedure [facility] Work Phone: Start: 10-09-2021 Patient referral [facility] Work Phone: Start: 10-02-2021 Patient discharge [facility] Work Phone: Start: 10-02-2021 Referral to service [facility] Work Phone: Start: 10-02-2021 [facility] Work Phone: Start: 10-02-2021 Application of intermittent pneumatic compression device [facility] Work Phone: Start: 10-01-2021 Following clinical pathway protocol [facility] Work Phone: Start: 10-01-2021 Aspiration precautions [facility] Work Phone: Start: 10-01-2021 Assessment of risk of venous thromboembolism [facility] Work Phone: Start: 10-01-2021 Bacteria identified in Sputum by Culture [facility] Work Phone: Start: 10-01-2021 Bacterial nucleic acid assay [facility] Work Phone: Start: 10-01-2021 Care regimes management [facility] Work Phone: Start: 10-01-2021 Elevation of head of bed [facility] Work Phone: Start: 10-01-2021 Fall prevention [facility] Work Phone: Start: 10-01-2021 Incentive spirometry [facility] Work Phone: Start: 10-01-2021 Inhalation therapy procedure [facility] Work Phone: Start: 10-01-2021 Insertion of catheter into peripheral vein [facility] Work Phone: Start: 10-01-2021 Introduction of urinary catheter [facility] Work Phone: Start: 10-01-2021 Measuring intake and output [facility] Work Phone: Start: 10-01-2021 Methicillin resistant Staphylococcus aureus screening test [facility] Work Phone: Start: 10-01-2021 Oxygen therapy [facility] Work Phone: Start: 10-01-2021 Patient education [facility] Work Phone: Start: 10-01-2021 Providing care according to standard [facility] Work Phone: Start: 10-01-2021 Provision of activity privileges [facility] Work Phone: Start: 10-01-2021 Referral to occupational therapist [facility] Work Phone: Start: 10-01-2021 Referral to service [facility] Work Phone: Start: 10-01-2021 Taking nasal swab [facility] Work Phone: Start: 10-01-2021 [facility] Work Phone: Start: 10-01-2021 Viral nucleic acid assay [facility] Work Phone: Start: 10-01-2021 Verification routine [facility] Work Phone: Start: 10-01-2021 Streptococcus pneumoniae antigen assay [facility] Work Phone: Start: 10-01-2021 End: 10-01-2021 [facility] Work Phone: Start: 10-01-2021 Admission procedure [facility] Work Phone: Start: 10-01-2021 Blood culture [facility] Work Phone: Start: 10-01-2021 Blood culture [facility] Work Phone: Start: 08-07-2021 Patient discharge [facility] Work Phone: Start: 08-06-2021 Following clinical pathway protocol [facility] Work Phone: Start: 08-06-2021 Ambulation without limitation [facility] Work Phone: Start: 08-06-2021 Assessment of risk of venous thromboembolism [facility] Work Phone: Start: 08-06-2021 Care regimes management [facility] Work Phone: Start: 08-06-2021 Elevation of head of bed [facility] Work Phone: Start: 08-06-2021 Inhalation therapy procedure [facility] Work Phone: Start: 08-06-2021 Insertion of catheter into peripheral vein [facility] Work Phone: Start: 08-06-2021 Oxygen therapy [facility] Work Phone: Start: 08-06-2021 Patient education [facility] Work Phone: Start: 08-06-2021 Providing care according to standard [facility] Work Phone: Start: 08-06-2021 Referral to occupational therapist [facility] Work Phone: Start: 08-06-2021 Referral to service [facility] Work Phone: Start: 08-06-2021 End: 08-06-2021 [facility] Work Phone: Start: 08-06-2021 Admission procedure [facility] Work Phone: Start: 08-06-2021 Bacteria identified in Blood by Culture Blood Culture [facility] Work Phone: Start: 08-06-2021 Patient referral to dietitian [facility] Work Phone: Start: 05-20-2021 Development of care plan [facility] Work Phone: Start: 05-18-2021 Patient discharge [facility] Work Phone: Start: 05-15-2021 Referral to service [facility] Work Phone: Start: 05-14-2021 [facility] Work Phone: Start: 05-12-2021 Neurological assessment [facility] Work Phone: Start: 05-11-2021 Neurological assessment [facility] Work Phone: Start: 05-08-2021 Referral to service [facility] Work Phone: Start: 05-07-2021 Oxygen therapy [facility] Work Phone: Start: 05-05-2021 Developing a treatment plan [facility] Work Phone: Start: 05-05-2021 Development of care plan [facility] Work Phone: Start: 05-05-2021 Following clinical pathway protocol [facility] Work Phone: Start: 05-05-2021 Patient referral to dietitian [facility] Work Phone: Start: 05-04-2021 Following clinical pathway protocol [facility] Work Phone: Start: 05-04-2021 Speech therapy assessment [facility] Work Phone: Start: 05-04-2021 Admission procedure [facility] Work Phone: Start: 05-04-2021 Measuring intake and output [facility] Work Phone: Start: 05-04-2021 Patient referral to dietitian [facility] Work Phone: Start: 05-04-2021 Referral to occupational therapist [facility] Work Phone: Start: 05-04-2021 Referral to service [facility] Work Phone: Start: 05-04-2021 Vital signs measurements [facility] Work Phone: Start: 05-04-2021 [facility] Work Phone: Start: 05-04-2021 Application of antithromboembolic stockings [facility] Work Phone: Alanine aminotransfe rase [Enzymatic activity/volume] in Serum or Plasma [facility] Work Phone: Alanine aminotransfe rase [Enzymatic activity/volume] in Serum or Plasma [facility] Albumin [Mass/volume ] in Serum or Plasma [facility] Work Phone: Albumin [Mass/volume ] in Serum or Plasma [facility] Alkaline phosphatase [Enzymatic activity/volume] in Serum or Plasma [facility] Work Phone: Alkaline phosphatase [Enzymatic activity/volume] in Serum or Plasma [facility] Anion gap measurement [facility] Work Phone: Anion gap measurement [facility] Anion gap measurement [facility] Aspartate aminotrans ferase [Enzymatic activity/volume] in Serum or Plasma [facility] Work Phone: Aspartate aminotrans ferase [Enzymatic activity/volume] in Serum or Plasma [facility] Bacteria identified in Blood by Culture Blood Culture [facility] Work Phone: Bacteria identified in Sputum by Culture [facility] Bacteria identified in Sputum by Culture [facility] Bacteria identified in Sputum by Respiratory culture [facility] Work Phone: Bacteria identified in Urine by Culture Urine Culture [facility] Work Phone: Bacteria identified in Urine by Culture [facility] Basic metabolic 2008 panel with ionized calcium - Serum or Plasma [facility] Bilirubin, total measurement [facility] Work Phone: Bilirubin, total measurement [facility] Blood culture [facility] Work Phone: Bone marrow biopsy, needle or trocar [facility] BUN/Creatinine ratio [facility] Work Phone: BUN/Creatinine ratio [facility] BUN/Creatinine ratio [facility] Calcium [Mass/volume ] in Serum or Plasma [facility] Work Phone: Calcium [Mass/volume ] in Serum or Plasma [facility] Calcium [Mass/volume ] in Serum or Plasma [facility] Carbon dioxide, tota l [Moles/volume] in Serum or Plasma [facility] Work Phone: Carbon dioxide, tota l [Moles/volume] in Serum or Plasma [facility] Carbon dioxide, tota l [Moles/volume] in Serum or Plasma [facility] CBC W Auto Different ial panel - Blood [facility] Work Phone: CBC W Auto Different ial panel - Blood [facility] CBC W Auto Different ial panel - Blood [facility] CBC W Auto Different ial panel - Blood [facility] CBC W Auto Different ial panel - Blood [facility] CBC W Auto Different ial panel - Blood [facility] CBC W Auto Different ial panel - Blood [facility] CBC W Auto Different ial panel - Blood [facility] CBC W Auto Different ial panel - Blood [facility] CBC W Auto Different ial panel - Blood [facility] Chloride [Moles/volu me] in Serum or Plasma [facility] Work Phone: Chloride [Moles/volu me] in Serum or Plasma [facility] Chloride [Moles/volu me] in Serum or Plasma [facility] Cobalamin (Vitamin B 12) [Mass/volume] in Serum or Plasma [facility] Comprehensive metabo lic 1999 panel - Serum or Plasma [facility] Comprehensive metabo lic 1999 panel - Serum or Plasma [facility] Comprehensive metabo lic 1999 panel - Serum or Plasma [facility] Creatinine [Moles/vo lume] in Serum or Plasma [facility] Work Phone: Creatinine [Moles/vo lume] in Serum or Plasma [facility] Creatinine [Moles/vo lume] in Serum or Plasma [facility] CT Abdomen and Pelvi s W contrast IV [facility] CT Chest [facility] CT Chest [facility] CT Chest [facility] Erythrocyte mean cor puscular volume determination [facility] Exercise tolerance test [facility] Ferritin [Mass/volum e] in Serum or Plasma [facility] Work Phone: Ferritin [Mass/volum e] in Serum or Plasma [facility] Ferritin [Mass/volum e] in Serum or Plasma [facility] Ferritin [Mass/volum e] in Serum or Plasma [facility] Ferritin [Mass/volum e] in Serum or Plasma [facility] Ferritin [Mass/volum e] in Serum or Plasma [facility] Ferritin [Mass/volum e] in Serum or Plasma [facility] Ferritin [Mass/volum e] in Serum or Plasma [facility] Folate [Mass/volume] in Serum or Plasma [facility] Folate [Mass/volume] in Serum or Plasma [facility] Folate [Moles/volume ] in Serum or Plasma [facility] Glucose [Mass/volume ] in Serum or Plasma [facility] Work Phone: Glucose [Mass/volume ] in Serum or Plasma [facility] Glucose [Mass/volume ] in Serum or Plasma [facility] Haptoglobin [Mass/vo lume] in Serum or Plasma [facility] Hematocrit [Volume F raction] of Blood [facility] Work Phone: Hematocrit [Volume F raction] of Blood [facility] Hematocrit [Volume F raction] of Blood [facility] Hematocrit [Volume F raction] of Blood [facility] Hematocrit [Volume F raction] of Blood [facility] Hematocrit [Volume F raction] of Blood [facility] Hemoglobin [Mass/vol ume] in Blood [facility] Work Phone: Hemoglobin [Mass/vol ume] in Blood [facility] Hemoglobin [Mass/vol ume] in Blood [facility] Hemoglobin [Mass/vol ume] in Blood [facility] Hemoglobin [Mass/vol ume] in Blood [facility] Hemoglobin [Mass/vol ume] in Blood [facility] Hemoglobin [Mass/vol ume] in Blood [facility] Hemoglobin A1c/Hemoglobin.total in Blood [facility] Work Phone: Iron and Iron bindin g capacity panel - Serum or Plasma [facility] Work Phone: Iron and Iron bindin g capacity panel - Serum or Plasma [facility] Iron and Iron bindin g capacity panel - Serum or Plasma [facility] Iron and Iron bindin g capacity panel - Serum or Plasma [facility] Iron and Iron bindin g capacity panel - Serum or Plasma [facility] Iron and Iron bindin g capacity panel - Serum or Plasma [facility] Iron and Iron bindin g capacity panel - Serum or Plasma [facility] Iron and Iron bindin g capacity panel - Serum or Plasma [facility] Iron and Iron bindin g capacity panel - Serum or Plasma [facility] Lactate dehydrogenas e [Enzymatic activity/volume] in Body fluid by Pyruvate to lactate reaction [facility] Lactate dehydrogenas e measurement [facility] Work Phone: Lactate dehydrogenas e measurement [facility] Lactate dehydrogenas e measurement [facility] Lactate dehydrogenas e measurement [facility] Lactate dehydrogenas e measurement [facility] Lactate dehydrogenas e measurement [facility] Lactate dehydrogenas e measurement [facility] Lactate dehydrogenas e measurement [facility] Legionella pneumophi la Ag [Presence] in Urine [facility] Work Phone: Leukocytes [#/volume ] in Blood [facility] Work Phone: Leukocytes [#/volume ] in Blood [facility] Leukocytes [#/volume ] in Blood [facility] Lipid 1996 panel - S bev or Plasma [facility] Magnesium [Mass/volu me] in Serum or Plasma [facility] Magnesium measurement [facility] Mean corpuscular hem oglobin concentration determination [facility] Work Phone: Mean corpuscular hem oglobin concentration determination [facility] Mean corpuscular hem oglobin concentration determination [facility] Mean corpuscular hem oglobin determination [facility] Work Phone: Mean corpuscular hem oglobin determination [facility] Mean corpuscular hem oglobin determination [facility] Measurement of occul t blood in stool specimen using immunoassay [facility] Measurement of renal function [facility] Work Phone: Measurement of renal function [facility] Measurement of renal function [facility] Measurement of respi ratory function [facility] Measurement of respi ratory function [facility] Microscopic observat ion [Identifier] in Unspecified specimen by Gram stain Gram Stain [facility] Work Phone: Neutrophil count [facility] Work Phone: Neutrophil count [facility] Neutrophil percent differential count [facility] Work Phone: Neutrophil percent differential count [facility] Patient Education [facility] Work Phone: Patient referral [facility] Work Phone: Platelets [#/volume] in Blood [facility] Work Phone: Platelets [#/volume] in Blood [facility] Platelets [#/volume] in Blood [facility] Potassium [Moles/vol ume] in Serum or Plasma [facility] Work Phone: Potassium [Moles/vol ume] in Serum or Plasma [facility] Potassium [Moles/vol ume] in Serum or Plasma [facility] Prostate specific an tigen measurement [facility] Protein [Mass/volume ] in Body fluid [facility] Red blood cell count [facility] Work Phone: Red blood cell count [facility] Red blood cell count [facility] Red cell distributio n width determination [facility] Work Phone: Red cell distributio n width determination [facility] Red cell distributio n width determination [facility] Respiratory Culture Respiratory Culture [facility] Work Phone: Respiratory microbial culture Respiratory Culture [facility] Work Phone: Respiratory pathogen s DNA and RNA 12b panel - Unspecified specimen by JUSTIN with probe detection [facility] Work Phone: Reticulocyte count [facility] Work Phone: Reticulocyte count [facility] Serum inorganic phos phate measurement [facility] Sodium [Moles/volume ] in Serum or Plasma [facility] Work Phone: Sodium [Moles/volume ] in Serum or Plasma [facility] Sodium [Moles/volume ] in Serum or Plasma [facility] Streptococcus pneumo niae antigen assay [facility] Work Phone: Thyroid stimulating hormone measurement [facility] Total protein measurement [facility] Work Phone: Total protein measurement [facility] Urea nitrogen [Mass/ volume] in Serum or Plasma [facility] Work Phone: Urea nitrogen [Mass/ volume] in Serum or Plasma [facility] Urea nitrogen [Mass/ volume] in Serum or Plasma [facility] US Heart limited [facility] Vitamin B12 measurement [facility] Vitamin B12 measurement [facility] Vitamin B12 measurement [facility] Vitamin D, 25-hydrox y measurement [facility] XR Chest PA and Lateral [facility] Work Phone: [facility] Immunizations Immunization Date Immunization Notes Care Provider Judson cummings 03-01-2023 Influenza High-Dose Quadrivalent Dr. Donna Will Work Phone: [facility] 01-08-2022 influenza, injectabl e, quadrivalent, preservative free [employer] JEWELRY-C DANNIELLE PIÑA Work Phone: [facility] 01-08-2022 influenza, seasonal, injectable [employer]-C DANNIELLE PIÑA Work Phone: [facility] 05-09-2021 pneumococcal conjuga te vaccine, [address] Donna Will Work Phone: [facility] 12-22-2020 Covid (Pfizer) Dr. Donna mckeon Work Phone: [facility] 11-24-[address] Donna Will Work Phone: [facility] 05-19-2020 Covid (Pfizer) Dr. Donna mckeon Work Phone: [facility] 04-27-2020 Covid (Pfizer) Dr. Donna mckeon Work Phone: [facility] 11-25-[address] Page Will Work Phone: [facility] Work Phone: 11-25-2011 pneumococcal vaccine , unspecified formulation Dr. Donna Will Work Phone: [facility] Payers Date Payer Category Payer Medicare [id number] 2021 Self-pay [id number] Medicare [id number] [id number] [id number] Unknown [id number] 2.16.8 40.1.511315.3.579.2.462 Unknown [id number] 2.16.8 40.1.624865.3.579.2.462 Unknown [id number] 2.16.8 40.1.363819.3.579.2.462 Unknown [id number] 2.16.8 40.1.257359.3.579.2.462 Unknown [id number] 2.16.8 40.1.604455.3.579.2.462 Unknown [id number] 2.16.8 40.1.858607.3.579.2.462 Unknown [id number] 2.16.8 40.1.779390.3.579.2.462 Unknown [id number] 2.16.8 40.1.413806.3.579.2.462 Unknown [id number] 2.16.8 40.1.120597.3.579.2.462 Unknown [id number] 2.16.8 40.1.317138.3.579.2.462 Unknown [id number] 2.16.8 40.1.487249.3.579.2.462 Unknown [id number] 2.16.8 40.1.670266.3.579.2.462 Unknown [id number] 2.16.8 40.1.468129.3.579.2.462 Unknown [id number] 2.16.8 40.1.302396.3.579.2.462 Unknown [id number] 2.16.8 40.1.323334.3.579.2.462 Unknown [id number] 2.16.8 40.1.629579.3.579.2.462 Unknown [id number] 2.16.8 40.1.435124.3.579.2.462 Unknown [id number] 2.16.8 40.1.712643.3.579.2.462 Unknown [id number] 2.16.8 40.1.988017.3.579.2.462 Unknown [id number] 2.16.8 40.1.662724.3.579.2.462 Unknown [id number] 2.16.8 40.1.875573.3.579.2.462 Unknown [id number] 2.16.8 40.1.587248.3.579.2.462 Unknown [id number] 2.16.8 40.1.178695.3.579.2.462 Unknown [id number] 2.16.8 40.1.882826.3.579.2.462 Unknown [id number] 2.16.8 40.1.943050.3.579.2.462 Unknown [id number] 2.16.8 40.1.219615.3.579.2.462 Unknown [id number] 2.16.8 40.1.629667.3.579.2.462 Unknown [id number] 2.16.8 40.1.234511.3.579.2.462 Unknown [id number] 2.16.8 40.1.782120.3.579.2.462 Unknown [id number] 2.16.8 40.1.173448.3.579.2.462 Unknown [id number] 2.16.8 40.1.202390.3.579.2.462 Unknown [id number] 2.16.8 40.1.658652.3.579.2.462 Unknown [id number] 2.16.8 40.1.769949.3.579.2.462 Unknown [id number] 2.16.8 40.1.467035.3.579.2.462 Unknown [id number] 2.16.8 40.1.385395.3.579.2.462 Unknown [id number] 2.16.8 40.1.867931.3.579.2.462 Unknown [id number] 2.16.8 40.1.100812.3.579.2.462 Unknown [id number] 2.16.8 40.1.034287.3.579.2.462 Unknown [id number] 2.16.8 40.1.692303.3.579.2.462 Unknown [id number] 2.16.8 40.1.713629.3.579.2.462 Unknown [id number] 2.16.8 40.1.768720.3.579.2.462 Unknown [id number] 2.16.8 40.1.397698.3.579.2.462 Unknown [id number] 2.16.8 40.1.572358.3.579.2.462 Unknown [id number] 2.16.8 40.1.328682.3.579.2.462 Unknown [id number] 2.16.8 40.1.407020.3.579.2.462 Unknown [id number] 2.16.8 40.1.833898.3.579.2.462 Unknown [id number] 2.16.8 40.1.193472.3.579.2.462 Unknown [id number] 2.16.8 40.1.135486.3.579.2.462 Unknown [id number] 2.16.8 40.1.491026.3.579.2.462 Unknown [id number] 2.16.8 40.1.657227.3.579.2.462 Unknown [id number] 2.16.8 40.1.471769.3.579.2.462 Unknown [id number] 2.16.8 40.1.409780.3.579.2.462 Unknown [id number] 2.16.8 40.1.279643.3.579.2.462 Unknown [id number] 2.16.8 40.1.673764.3.579.2.462 Unknown [id number] 2.16.8 40.1.545638.3.579.2.462 Unknown [id number] 2.16.8 40.1.033646.3.579.2.462 Unknown [id number] 2.16.8 40.1.227454.3.579.2.462 Unknown [id number] 2.16.8 40.1.156760.3.579.2.462 Unknown [id number] 2.16.8 40.1.230667.3.579.2.462 Unknown [id number] 2.16.8 40.1.978178.3.579.2.462 Unknown [id number] 2.16.8 40.1.178787.3.579.2.462 Unknown [id number] 2.16.8 40.1.785820.3.579.2.462 Unknown [id number] 2.16.8 40.1.580182.3.579.2.462 Unknown [id number] 2.16.8 40.1.034324.3.579.2.462 Unknown [id number] 2.16.8 40.1.011253.3.579.2.462 Unknown [id number] 2.16.8 40.1.967060.3.579.2.462 Unknown [id number] 2.16.8 40.1.177683.3.579.2.462 Unknown [id number] 2.16.8 40.1.039798.3.579.2.462 Unknown [id number] 2.16.8 40.1.433922.3.579.2.462 Unknown [id number] 2.16.8 40.1.690470.3.579.2.462 Unknown [id number] 2.16.8 40.1.593177.3.579.2.462 Unknown [id number] 2.16.8 40.1.814579.3.579.2.462 Unknown [id number] 2.16.8 40.1.818765.3.579.2.462 Unknown [id number] 2.16.8 40.1.748903.3.579.2.462 Unknown [id number] 2.16.8 40.1.812166.3.579.2.462 Social History Date Type Detail Facility Start: 05-29-2021 End: 06-05-2023 Tobacco smoking status OKIS Unknown if ever smoked [facility] Start: 03-14-2021 Occasional [facility] Start: 03-14-2021 None [facility] Start: 03-14-2021 Cigarettes [facility] Start: 1950 Sex Assigned At Male [facility] Start: 1950 Sex Assigned At Not on file [facility] Gender identity Not on file [facility] Start: 06-23-2024 End: 07-08-2024 Tobacco smoking status OKIS Current some day smoker [facility] Start: 06-30-2024 Sex Male (finding) [facility] Medical Equipment Procedure Code Equipment Code Equipment Origin al Text Equipment Identifier Dates EGD, with monitored anesthesia care [id number] FDA Start: 04-06-2024 Goals Date Patient Goal Desired Activity /State Functional Status Date Assessment Result Facility 06-25-2024 Functional status Standby Assist [facility] Work Phone: 06-24-2024 Functional status Ambulates;Stand with Ur inal [facility] Work Phone: 04-08-2024 Functional status Ambulates;Stand with Ur inal [facility] Work Phone: 03-21-2023 Functional status Ambulates;Basilio r;Bathroom Privilege [facility] Work Phone: 03-06-2023 Functional status Ambulates;Bath room Privilege;Active Range of Motion;Stand with Urinal [facility] Work Phone: 11-17-2022 Functional status Ambulates;Bathroom Priv ilege [facility] Work Phone: 02-16-2022 Functional status Chair [facility] Work Phone: 12-11-2021 Functional status Ambulates [facility] Work Phone: 10-26-2021 Functional status Ambulates [facility] Work Phone: 10-02-2021 Functional status Ambulates [facility] Work Phone: 10-01-2021 Functional status Tolerates Activity Well [facility] Work Phone: 08-07-2021 Functional status Patient Activity Chair [facility] Work Phone: 08-07-2021 Functional status Activity Abili ty With Assist of 1 [facility] Work Phone: 08-06-2021 Functional status Activity Abili ty With Assist of 2 [facility] Work Phone: 05-18-2021 Functional status With Assist of 1 [facility] Work Phone: 05-15-2021 Functional status Chair [facility] Work Phone: 05-04-2021 Functional status Ambulates;Chair [facility] Work Phone: 04-28-2021 Functional status With Assist of 2 [facility] Work Phone: 04-27-2021 Functional status Chair [facility] Work Phone: 04-26-2021 Functional status Chair [facility] Work Phone: 04-11-2021 Functional status Ambulates [facility] Work Phone: 03-25-2021 Functional status Chair [facility] Work Phone: Mental Status Date Assessment Result Facility 07-08-2024 Cognitive function Awake;Alert;A ppropriate;Follow s Commands [facility] Work Phone: 06-25-2024 Cognitive function Voice/Name [facility] Work Phone: 05-27-2024 Cognitive function Awake;Alert;A ppropriate;Follow s Commands [facility] Work Phone: 05-20-2024 Cognitive function Voice/Name [facility] Work Phone: 04-08-2024 Cognitive function Voice/Name [facility] Work Phone: 06-05-2023 Cognitive function Voice/Name [facility] Work Phone: 05-09-2023 Cognitive function Awake;Alert;A ppropriate;Follow s Commands [facility] Work Phone: 03-21-2023 Cognitive function Voice/Name [facility] Work Phone: 03-16-2023 Cognitive function Awake;Alert;Follows Co mmands [facility] Work Phone: 03-06-2023 Cognitive function Voice/Name [facility] Work Phone: 02-06-2023 Cognitive function Voice/Name [facility] Work Phone: 01-30-2023 Cognitive function Awake;Alert;A ppropriate;Follow s Commands [facility] Work Phone: 12-16-2022 Cognitive function Arousable To Voice/Nam e [facility] Work Phone: 11-17-2022 Cognitive function Voice/Name [facility] Work Phone: 11-08-2022 Cognitive function Voice/Name [facility] Work Phone: 05-13-2022 Cognitive function Awake;Alert;A ppropriate;Follow s Commands [facility] Work Phone: 05-06-2022 Cognitive function Arousable To Voice/Nam [facility] Work Phone: 02-16-2022 Cognitive function Appropriate;Cooperativ [facility] Work Phone: 01-28-2022 Cognitive function Voice/Name [facility] Work Phone: 01-14-2022 Cognitive function Voice/Name [facility] Work Phone: 12-11-2021 Cognitive function Touch/Shaking [facility] Work Phone: 10-26-2021 Cognitive function Voice/Name [facility] Work Phone: 10-02-2021 Cognitive function Voice/Name [facility] Work Phone: 08-07-2021 Cognitive function Level Of Cons ciousness Awake;Alert;Appropriate;Follow s Commands [facility] Work Phone: 08-07-2021 Cognitive function Appropriate;C ooperative;Aggres [facility] Work Phone: 08-06-2021 Cognitive function Patient Orien tation Person;Place;Time [facility] Work Phone: 08-06-2021 Cognitive function Appropriate;Cooperativ [facility] Work Phone: 08-06-2021 Cognitive function Level Of Cons ciousness Awake;Alert;Appropriate;Follow s Commands [facility] Work Phone: 05-18-2021 Cognitive function Voice/Name [facility] Work Phone: 05-12-2021 Cognitive function Appropriate;[facility] Work Phone: 05-03-2021 Cognitive function Voice/Name [facility] Work Phone: 04-28-2021 Cognitive function Voice/Name [facility] Work Phone: 04-26-2021 Cognitive function Appropriate;[facility] Work Phone: 04-25-2021 Cognitive function Voice/Name [facility] Work Phone: 04-11-2021 Cognitive function Voice/Name [facility] Work Phone: 03-25-2021 Cognitive function Voice/Name [facility] Work Phone: Clinical Notes 04-24-2021 to 07-20-2024 Note Date & Type Note Facility 07-20-2024 Progress note Note Date/Time July 20, 2024 3:19pm [facility] [address] [place] [address] OFFICE VISIT Date of Service: 07/20/24 1447 MR#: [id number] Acct: [id number] Name: JAYDON ALONZO Jr. Rep #: [id number] : 1950 From: Tobi Zapata MD Age/Sex: 73/M Location: [facility] Status: Signed HPI Subjective Date of [...] cell carcinoma Atherosclerosis of coronary artery of [place] heart without angina pectoris Pneumonia Non-Hodgkin lymphoma [...] U-100 100 unit/mL See Protocol subcut A [facility] high 11/12/23 07/20/24 Rx (3 mL) subcutaneous pen blood glucose 1 month #15 mL needle (disp) 32 gauge 32 gauge x #100 ea 11/12/23 Rx 5/16 (Easy Touch Hypodermic Needle) pen needle, diabetic 32 gauge x #100 ea 12/03/2307/20 Rx 5/32 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 sensor (FreeStyle #1 ea 12/24/23 5 Rx Basilio 3 Sensor device) 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,client leader,cont #1 ea 12/24/23 07/20/24 Rx (FreeStyle Basilio 3 [place]) furosemide 40 mg tablet (Lasix) 20 mg [...] Tobi Panchal> Date _ Tobi Zapata MD [facility] Signature: Date (if applicable) CC: Dr. Donna Will MD ~ [facility] Work Phone: 1(771) 101-686505-15-2025 Radiology Diagnostic study [facility]05-15-2025 Discharge summary Author Marco Hoffman [facility] Note Date/Time July 08, 2024 5:10p [facility] Medical Records Department [address] [facility] [place] [address] Emergency Department Summary 07/08/24 MR#: [id number] Acct: [id number] Name: JAYDON ALONZO Jr. Rep #:[id number] : 1950 73 From: Marco Lilly PCP: [...] cell carcinoma Atherosclerosis of coronary artery of [place] heart without angina pectoris Pneumonia Non-Hodgkin lymphoma [...] ea 12/24/23 Unknown Rx (FreeStyle Basilio 3 [place]) 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 sensor (FreeStyle #1 ea 12/24/23 Unknown [...] 71.7 H Lymph % (Auto) 15.2 L [place] % (Auto) 9.4 Eos % (Auto) 2.0 [...] Sl. Cloudy Urine pH 6.0 Ur Specific [place] 1.015 Urine Protein 30 H Urine Glucose [...] as compared to prior study. Reading Location: [facility] PA and lateral chest x-ray was obtained. [...] a normal sinus rhythm with frequent PACs. [place] interval was approximately 160 ms. QRS interval was normal at 102 ms. QTc interval was 444 ms. [place] was normal. There are nonspecific ST-T wave [...] bmp, cbc, and vanc trough. Fax to [phone]. Routine picc care per protocol. insulin glargine-yfgn [...] Instructions: As directed (DME) FreeStyle Basilio 3 [place] Misc See Rx Instructions .Route Qty: 1 [...] Active Staff] - 5-7 Days Print Language: Hebrew Disposition Disposition: Home, Self Care What to do if you have Problems For any increased pain, shortness of breath, bleeding, nausea or vomiting, chestpain, or any unexpected problems, contact your Primary Care Provider. Call [facility] ([phone]) or report to the closest Emergency Room. Call 911 if necessary. 07/08/24 1710 <Electronically signed by Marco Hoffman DO> Cosigner Signature (if applicable): CC: Dr. Donna Will MD ~ Signed [facility] Work Phone: 1(742) 434-206502-10-2025 Evaluation note* Diagnosis Onset Date Resolution Status [...] 2024 9:11am Iron deficiency anemia chronic [facility] 2024 1:14pm Iron deficiency anemia refractory [...] therapy chronic June 252024 1:32pm [facility] Work Phone: 1(529) 840-583501-21-2025 Evaluation note* Diagnosis Onset Date Resolution Status [...] chronic 2024 9:11am Iron deficiency anemia chronic [facility] 2024 1:14pm Iron deficiency anemia refractory to [...] artery disease) removed June 20, 2024 6:06pm [facility] Work Phone: 1(246) 610-348401-10-2025 Evaluation note* Diagnosis Onset Date Resolution Status [...] chronic 2024 9:11am Iron deficiency anemia chronic [facility] 2024 1:14pm Iron deficiency anemia refractory to [...] artery disease) removed June 20, 2024 6:06pm [facility] Work Phone: 1(621) 175-879504-11-2024 Procedure [facility] 03-21-2023 Telephone encounter Note* Telephone Encounter - Adri Perez RN - 03/21/2023 8:07 PM EST S: [facility] problem. B: Pt was discharged today from [facility]. A: [facility] not [facility] pt's insulin that was prescribed at discharge. wants to know why, and also what he can take instead. R: Advised that she has reached the [facility], and to please call the other number on her card regarding prescriptions. Caller ended call. Reason for Disposition [1] Follow-up call to recent contact AND [2] information only call, no triage required Protocols used: Information Only Call - No Ijpcyo-GISSI-SF [id number] Miscellaneous Notes* Telephone Encounter - Adri Perez RN - 03/21/2023 8:07 PM EST S: Pt's calling [facility] Nurse Advice Line regarding prescription problem. B: Pt was discharged today from [facility]. A: states [facility] insurance will not cover pt's insulin that was prescribed at discharge. wants to know why, and also what he can take instead. R: Advised that she has reached the [facility] Nurse Advice Line, and to please call the other number on her card regarding prescriptions. Caller ended call. Reason for Disposition [1] Follow-up call to recent contact AND [2] information only call, no triage required Protocols used: Information Only Call - No Gyramw-WAEGU-DQ documented in this encounterSHarrison Community [id number] History and physical note Author Nadira Ricks [facility] March 16, 2023 4:47pm Note Date/Time March 16, 2023 3 :13pm [facility] Medical Records Department [address] [place] [address] H&P Exam - Hospitalist 03/16/23 1449 MR#: [id number] Acct: [id number] Name: JAYDON ALONZO Rep #:[id number] : 1950 72 From: Nadira Ricks DO PCP: Dr. Donna Will MD Status:ADM IN Location: ICU CVICU20 1-1 HPI - General General Date of Admission: 03/16/23 Date of Service: 03/16/23 Chief Complaint: Fall/Fatigue/Hypotension/Hyperglycemia HPI Narrative JAYDON ALONZO, is a 72 M who presented to the emergency department at [facility] on 03/16/2023 after a fall at [...] admitted to the ICU for further care. 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 Nadira Ricks DO; Dr. Donna Will MD~ Signed [facility] Work Phone: 1(215) 621-567201-21-2024 Discharge summary Author Eva [facility] March 16, 2023 5:41pm Note Date/Time March 16, 2023 2 :34pm [facility] Medical Records Department [address] [place] [address] Emergency Department Summary 03/16/23 MR#: [id number] Acct: [id number] Name: JAYDON ALONZO Rep #:[id number] : 1950 72 From: Eva Lilly PCP: [...] Per EMS patient's blood sugar was in [id number]. Chart review shows the patient was recently [...] time of discharge patient's hemoglobin was 10.0. [facility] Medical History Acute respiratory failure with hypoxia Allergic rhinitis Arthritis Asthma Atherosclerosis of coronary artery of [place] heart without angina pectoris Bleeding tendency Cancer [...] Std Deviation 63.7 H RDW Coeff of [place] 20.1 H Plt Count 256 MPV 12.3 H Immature Gran % (Auto) 4.100 H Neut % (Auto) 82.4 H Lymph % (Auto) 7.3 L [place] % (Auto) 5.5 Eos % (Auto) 0.5 [...] Color Urine Clarity Urine pH Ur Specific [place] Urine Protein Urine Glucose (UA) Urine Ketones [...] (Auto) Neut % (Auto) Lymph % (Auto) [place] % (Auto) Eos % (Auto) Baso % [...] Clarity Clear Urine pH 6.5 Ur Specific [place] 1.010 Urine Protein 30 H Urine Glucose [...] procedures): 30-74 minutes (40), Discussing w/Patient &/or Family/Automation Developer, Discussing w/Consultants and Arranging Admission or Transfer Discharge Plan Triage Chief Complaint: General Illness ED Provider: Eva Marie Dx/Rx/DC Orders Clinical Impression: Acute on chronic blood loss anemia, Acute hyperglycemia, Syncope, Acute kidney injury superimposed on CKD, Acute upper GI bleed Primary Care Provider: Donna Will Disposition Disposition: Acute Care Hospital [facility] Discharge Date/Time: 03/16/23 17:40 What to do if you have Problems For any increased pain, shortness of breath, bleeding, nausea or vomiting, chestpain, or any unexpected problems, contact your Primary Care Provider. Call [facility] ([phone]) or report to the closest Emergency Room. Call 911 if necessary. 03/16/23 1741 <Electronically signed by Eva Marie DO> Cosigner Signature (if applicable): CC: Dr. Donna Will MD ~ Signed [facility] Work Phone: 1(991) 426-643001-11-2024 Discharge summary Author Jordan Ortiz [facility] March 06, 2023 11:07am Note Date/Time March 06, 2023 1 1:06am [facility] Medical Records Department [address] [place] [address] Discharge Summary 03/06/23 1105 MR#: [id number] Acct: [id number] Name: JAYDON ALONZO Jr. Rep #:[id number] : 1950 72 From: Jordan Ortiz MD PCP: Dr. Donna Will MD Status:ADM IN [facility] Prov[facility] Date of Admission: 03/03/23 [...] rhythm. 19. New onset A-fib ? Patient [id number] score was calculated to be 5 patient [...] 79.8 H, Lymph % (Auto) 8.3 L, [place] % (Auto) 10.8 H, Eos % (Auto) [...] Self Care Charges/Coding Visit Charges Inpatient E&M: 99254 Disch Hosp >30min 03/06/23 1107 <Electronically signed by Jordan Ortiz MD> Cosigner Signature (if applicable): CC: Dr. Jordan Ortiz MD; Dr. Donna Will MD~ Signed [facility] Work Phone: 1(170) 109-229901-11-2024 Progress note Author Jordan [facility] March 06, 2023 9:43am Note Date/Time March 06, 2023 9 :43am [facility] Medical Records Department [address] [place] [address] Progress Note - Hospitalist 03/06/23 0940 MR#: [id number] Acct: [id number] Name: JAYDON ALONZO Andre Roper Rep #:[id number] : 1950 72 From: Jordan Ortiz MD PCP: Dr. Donna Will MD Status:ADM IN Location: [place] [address]- Reason for Visit Reason for Visit: Diagnoses [...] 79.8 H, Lymph % (Auto) 8.3 L, [place] % (Auto) 10.8 H, Eos % (Auto) [...] rhythm. 19. New onset A-fib ? Patient [id number] score was calculated to be 5 patient subsequently startedon systemic anticoagulation with apixaban after discussion with him Time spent in the patient's overall evaluation,decision-making process, review of diagnostic data, adjustment of management, discussion with other providers, nursing nursing and ancillary staff involved in patient's care documentation,40 minutes Charges/Coding Visit Charges Inpatient E&M: 22795 Subs Hosp L2 03/06/23 0943 <Electronically signed by Jordan Ortiz MD> Cosigner Signature (if applicable): CC: ~ Signed [facility] Work Phone: [phone]) 540-762701-10-2024 Progress note Author Jordan [facility] March 05, 2023 10:15am Note Date/Time March 05, 2023 1 0:15am [facility] Medical Records Department [address] [place] [address] Progress Note - Hospitalist 03/05/23 1012 MR#: [id number] Acct: [id number] Name: JAYDON ALONZO Jr. Rep #:[id number] : 1950 72 From: Jordan Ortiz MD PCP: Dr. Donna Will MD Status:ADM IN Location: [place] [address] Reason for Visit Reason for Visit: Diagnoses [...] documentation, 50minutes Charges/Coding Visit Charges Inpatient E&M: 84994 Subs Hosp L3 03/05/23 1015 <Electronically signed by Jordan Ortiz MD> Cosigner Signature (if applicable): CC: ~ Signed [facility] Work Phone: 1([phone]) 733-734901-09-2024 Consult note Author Peter Moseley [facility] March 04, 2023 12:01pm Note Date/Time March 04, 2023 12 :02pm [facility] Medical Records Department [address] [place] [address] Counseling Note - Pharmacy 03/04/23 1201 MR#: [id number] Acct: [id number] Name: JAYDON ALONZO Jr. Rep #:[id number] : 1950 72 From: Peter Moseley PCP: Dr. Donna Will MD Status:ADM IN Y [facility] has performed [...] Signature (if applicable): Date CC: ~ Signed [facility] Work Phone: 1(593) 308-453601-09-2024 Discharge summary Author [facility] March 04, 2023 11:39am Note Date/Time March 04, 2023 11 :39am [facility] Medical Records Department [address] [place] [address] Discharge Summary 03/04/23 1138 MR#: [id number] Acct: [id number] Name: CHERIJAYDON Andre Roper Rep #:[id number] : 1950 72 From: Jordan Ortiz MD PCP: Dr. Donna Will MD Status:ADM IN Location: [place] [address] Providers Date of Admission: 03/03/23 Date of [...] 90.3 H, Lymph % (Auto) 3.5 L, [place] % (Auto) 5.1, Eos % (Auto) 0.0, [...] Self Care Charges/Coding Visit Charges Inpatient E&M: 14904 Disch Hosp >30min 03/04/23 1139 <Electronically signed by Jordan Ortiz MD> Cosigner Signature (if applicable): CC: Dr. Jordan Ortiz MD; Dr. Donna Will MD~ Signed [facility] Work Phone: 1([phone]) 779-542301-09-2024 Progress note Author Jordan Ortiz [facility] March 04, 2023 11:36am Note Date/Time March 04, 2023 8: 18am [facility] Medical Records Department [address] [place] [address] Progress Note - Hospitalist 03/04/23817 MR#: [id number] Acct: [id number] Name: JAYDON ALONZO Jr. Rep #:[id number] : 1950 72 From: Jordan Ortiz MD PCP: Dr. Donna Will MD Status:ADM IN Location: [place] [address] Reason for Visit Reason for Visit: Diagnoses [...] documentation, 35minutes Charges/Coding Visit Charges Inpatient E&M: 85720 Subs Hosp L2 03/04/23 1136 <Electronically signed by Jordan Ortiz MD> Cosigner Signature (if applicable): CC: ~ Signed [facility] Work Phone: 1(313) 477-756201-08-2024 Progress note Author Jordan Ortiz [facility] March 03, 2023 9:16am Note Date/Time March 03, 2023 9: 03am [facility] Medical Records Department [address] [place] [address] Progress Note - Hospitalist 03/03/23 0903 MR#: [id number] Acct: [id number] Name: CHERIJAYDON Andre Roper Rep #:[id number] : 1950 72 From: Jordan Ortiz MD PCP: Dr. Donna Will MD Status:ADM [facility] Location: [place] [address] Reason for Visit Reason for Visit: Diagnoses [...] 91.8 H, Lymph % (Auto) 3.5 L, [place] % (Auto) 3.9, Eos % (Auto) 0.0, [...] 50 Minutes Charges/Coding Visit Charges Inpatient E&M: 83442 Subs Hosp L3 03/03/23 0916 <Electronically signed by Jordan Ortiz MD> Cosigner Signature (if applicable): CC: ~ Signed [facility] Work Phone: 1([phone]) 460-440601-07-2024 Discharge summary Author Jordan Ortiz [facility] March 02, 2023 10:54am Note Date/Time March 02, 2023 10 :52am [facility] Medical Records Department [address] [place], [place] [address] [place] [address] Discharge Summary 03/02/23 1050 MR#: [id number] Acct: [id number] Name: JAYDON ALONZO Jr. Rep #:[id number] : 1950 72 From: Jordan Ortiz MD PCP: Dr. Donna Will MD Status:ADM [place] Location: [place] [address] Providers Date of Admission: 02/28/23 Date of [...] 89.5 H, Lymph % (Auto) 5.3 L, [place] % (Auto) 4.0, Eos % (Auto) 0.0, [...] Admission Admit Date/Time: 02/28/23 16:42 Attending Provider: Jodran Ortiz Primary Care Provider: Donna Will Consulting [...] Self Care Charges/Coding Visit Charges Inpatient E&M: 38049 Disch Hosp >30min 03/02/23 1054 <Electronically signed by Jordan Ortiz MD> Cosigner Signature (if applicable): CC: Dr. Jordan Ortiz MD; Dr. Donna Will MD~ Signed [facility] Work Phone: 1(868) 715-449001-07-2024 Progress note Author [facility] March 02, 2023 10:47am Note Date/Time March 02, 2023 7: 56am [facility] Medical Records Department [address] [place] [address] Progress Note - Hospitalist 03/02/23 0755 MR#: [id number] Acct: [id number] Name: CHERIJAYDON Jr. Rep #:[id number] : 1950 72 From: Jordan Ortiz MD PCP: Dr. Donna Will MD Status:ADM [place] Location: [place] [address] Reason for Visit Reason for Visit: Diagnoses [...] (Auto) 84.0 H, Lymph %(Auto) 10.9 L, [place] % (Auto) 4.0, Eos % (Auto) 0.0, [...] 89.5 H, Lymph % (Auto) 5.3 L, [place] % (Auto) 4.0, Eos % (Auto) 0.0, [...] documentation, 35Minutes Charges/Coding Visit Charges Inpatient E&M: 06160 Subs Hosp L2 03/02/23 1047 <Electronically signed by Jordan Ortiz MD> Cosigner Signature (if applicable): CC: ~ Signed [facility] Work Phone: 1(737) 780-802501-06-2024 Progress note Author Jordan Escobarjaclyn [facility] March 01, 2023 11:48am Note Date/Time March 01, 2023 8: 11am [facility] Medical Records Department [address] [place] [address] Progress Note - Hospitalist 03/01/23 0811 MR#: [id number] Acct: [id number] Name: JAYDON ALONZO Andre Roper Rep #:[id number] : 1950 72 From: Jordan Ortiz MD PCP: Dr. Donna Will MD Status:ADM [place] Location: [place] [address] Reason for Visit Reason for Visit: Diagnoses [...] 74.3 H, Lymph % (Auto) 11.7 L, [place] % (Auto) 8.6, Eos % (Auto) 3.9, [...] documentation,55 Minutes Charges/Coding Visit Charges Inpatient E&M: 19892 Subs Hosp L3 03/01/23 1148 <Electronically signed by Jordan Ortiz MD> Cosigner Signature (if applicable): CC: ~ Signed [facility] Work Phone: 1(348) 121-616501-05-2024 History and physical note Author Mable Pritchard [facility] February 28, 2023 4:59pm Note Date/Time February 28, 2023 4: 46pm [facility] Medical Records Department [address] [place] [address] H&P Exam - Hospitalist 02/28/23 1642 MR#: [id number] Acct: [id number] Name: JAYDON ALONZO Jr. Rep #:[id number] : 1950 72 From: Mable Pritchard MD PCP: Dr. Donna Will MD Status:ADM [place] Location: [place] [address] HPI - General General Date of Admission: 02/28/23 Date of Service: 02/28/23 Chief Complaint: Gen weakness, SOB HPI Narrative JAYDON ALONZO, is a 72-year-old male history of COPD on 4 L home O2, diabetes, VTE,rheumatoid arthritis, depression, BPH who presented to [facility] 02/28/2023 with increased cough with yellowish [...] left leg is slightly swollen as well. [facility] Medical History Acute respiratory failure with hypoxia Allergic rhinitis Arthritis Asthma Atherosclerosis of coronary artery of [place] heart without angina pectoris Bleeding tendency Cancer [...] 74.3 H, Lymph % (Auto) 11.7 L, [place] % (Auto) 8.6, Eos % (Auto) 3.9, [...] Pritchard MD Charges/Coding Visit Charges Inpatient E&M: 39466 Init Hosp L2 02/28/23 7359 <Electronically signed by Mable Pritchard MD> Cosigner Signature (if applicable): CC: Dr. Donna Will MD; Dr. Mable Pritchard MD~ Signed [facility] Work Phone: 1(448) 695-958801-05-2024 Discharge summary Author Dwain Nowak [facility] February 28, 2023 4:16pm Note Date/Time February 28, 2023 11 :58am [facility] Medical Records Department [address] [place] [address] Emergency Department Summary 02/28/23 MR#: [id number] Acct: [id number] Name: JAYDON ALONZO Jr. Rep #:[id number] : 1950 72 From: Dwain Nowak MD [...] Arthritis Asthma Atherosclerosis of coronary artery of [place] heart without angina pectoris Bleeding tendency Cancer [...] 74.3 H Lymph % (Auto) 11.7 L [place] % (Auto) 8.6 Eos % (Auto) 3.9 [...] 12:46 EST Reading Location ID and State: [address] [place] [address] , Service support , Chest x-ray, portable, single view shows a chronic right pleural effusion. Priorsternotomy. No acute process. Rhythm Strip Rhythm Strip: Sinus Rhythm Rate: 82 Ectopy: None EKG Initial EKG: Attestation: I personally reviewed and interpreted this EKG as follows: Interpretation: Sinus Rhythm and No Acute Injury Pattern Comments: Sinus rhythm rate 82 no acute signs of IA or ischemia. No acute change from prior EKG from October. Prior EKG tracings: available for review Prior: Unchanged Discharge Plan Dx/Rx/DC Orders Clinical Impression: History of COPD, History of chronic kidney disease, Acute dyspnea, Anemia, Pleural effusion on right, Acute hyperkalemia Disposition Disposition: Acute Care Hospital [facility] What to do if you have Problems For any increased pain, shortness of breath, bleeding, nausea or vomiting, chestpain, or any unexpected problems, contact your Primary Care Provider. Call [facility] ([phone]) or report to the closest Emergency Room. Call 911 if necessary. 02/28/23 1616 <Electronically signed by Dwain Nowak MD> Cosigner Signature (if applicable): CC: Dr. Donna Will MD ~ Signed [facility] Work Phone: 1(138) 560-405601-05-2024 Discharge summary Author Dwain Nowak [facility] February 28, 2023 4:16pm Note Date/Time February 28, 2023 11 :58am [facility] Medical Records Department [address] [place] [address] Emergency Department Summary 02/28/23 MR#: [id number] Acct: [id number] Name: JAYDON ALONZO Jr. Rep #:[id number] : 1950 72 From: Dwain Nowak MD [...] Arthritis Asthma Atherosclerosis of coronary artery of [place] heart without angina pectoris Bleeding tendency Cancer [...] 74.3 H Lymph % (Auto) 11.7 L [place] % (Auto) 8.6 Eos % (Auto) 3.9 [...] 12:46 EST Reading Location ID and State: [address] [place] [address] , Service support , Chest x-ray, portable, single view shows a chronic right pleural effusion. Priorsternotomy. No acute process. Rhythm Strip Rhythm Strip: Sinus Rhythm Rate: 82 Ectopy: None EKG Initial EKG: Attestation: I personally reviewed and interpreted this EKG as follows: Interpretation: Sinus Rhythm and No Acute Injury Pattern Comments: Sinus rhythm rate 82 no acute signs of IA or ischemia. No acute change from prior EKG from October. Prior EKG tracings: available for review Prior: Unchanged Discharge Plan Dx/Rx/DC Orders Clinical Impression: History of COPD, History of chronic kidney disease, Acute dyspnea, Anemia, Pleural effusion on right, Acute hyperkalemia Disposition Disposition: Acute Care Hospital [facility] What to do if you have Problems For any increased pain, shortness of breath, bleeding, nausea or vomiting, chestpain, or any unexpected problems, contact your Primary Care Provider. Call [facility] ([phone]) or report to the closest Emergency Room. Call 911 if necessary. 02/28/23 1616 <Electronically signed by Dwain Nowak MD> Cosigner Signature (if applicable): CC: Dr. Donna Will MD ~ Signed [facility] Work Phone: 1(865) 251-358609-24-2023 Discharge summary Author Jordan Ortiz [facility] November 17, 2022 11:58am Note Date/Time November 17, 2022 11:53am [facility] Medical Records Department [address] [place] [address] Discharge Summary 11/17/22 1150 MR#: [id number] Acct: [id number] Name: JAYDON ALONZO Jr. Rep #:[id number] : 1950 72 From: Jordan Ortiz MD PCP: Dr. Donna Will MD Status:ADM IN Location: [place] [address] Providers Date of Admission: 11/15/22 Date of [...] % (Auto) 60.4, Lymph % (Auto) 19.4, [place] % (Auto) 12.0 H, Eos % (Auto) [...] Self Care Charges/Coding Visit Charges Inpatient E&M: 83179 Disch Hosp >30min 11/17/22 1158 <Electronically signed by Jordan Ortiz MD> Cosigner Signature (if applicable): CC: Dr. Jordan Ortiz MD; Dr. Donna Will MD~ Signed [facility] Work Phone: 1(544) 142-901409-24-2023 Progress note Author Jordan Ortiz [facility] November 17, 2022 10:40am Note Date/Time November 17, 2022 8:32am [facility] Medical Records Department [address] [place] [address] Progress Note - Hospitalist 11/17/22 0831 MR#: [id number] Acct: [id number] Name: JAYDON ALONZO Jr. Rep #:[id number] : 1950 72 From: Jordan Ortiz MD PCP: Dr. Donna Will MD Status:ADM IN Location: [place] [address] Reason for Visit Reason for Visit: Diagnoses [...] % (Auto) 60.4, Lymph % (Auto) 19.4, [place] % (Auto) 12.0 H, Eos % (Auto) [...] documentation, 35Minutes Charges/Coding Visit Charges Inpatient E&M: 27573 Subs Hosp L2 11/17/22 1040 <Electronically signed by Jordan Ortiz MD> Cosigner Signature (if applicable): CC: ~ Signed [facility] Work Phone: 1(967) 719-683109-23-2023 Progress note Author Jordan Ortiz [facility] November 16, 2022 11:02am Note Date/Time November 16, 2022 8:33am [facility] Medical Records Department [address] [place] [address] Progress Note - Hospitalist 11/16/22 0832 MR#: [id number] Acct: [id number] Name: JAYDON ALONZO Jr. Rep #:[id number] : 1950 72 From: Jordan Ortiz MD PCP: Dr. Donna Will MD Status:ADM IN Location: [place] [address] Reason for Visit Reason for Visit: Diagnoses [...] (Auto) 65.2, Lymph % (Auto) 17.9 L, [place] % (Auto) 8.9, Eos % (Auto) 6.0 [...] documentation, 55Minutes Charges/Coding Visit Charges Inpatient E&M: 41261 Subs Hosp L3 11/16/22 1102 <Electronically signed by Jordan Ortiz MD> Cosigner Signature (if applicable): CC: ~ Signed [facility] Work Phone: 1(744) 504-264209-22-2023 History and physical note Author Loki Lozoya [facility] November 15, 2022 8:33pm Note Date/Time November 15, 2022 7:11pm [facility] Medical Records Department [address] [facility] [place] [address] H&P Exam - Hospitalist 11/15/22 1905 MR#: [id number] Acct: [id number] Name: JAYDON ALONZO Jr. Rep #:[id number] : 1950 72 From: Loki worthington DO PCP: Dr. Donna Will MD Status:ADM IN Location: [place] [address] HPI - General General Date of Admission: [...] and former tobacco use who presented to [facility] ED on 11/13/2022 with worsening dyspnea. Patient [...] right and small on left, bibasilar atelectasis. [facility] Medical History Acute respiratory failure with hypoxia Allergic rhinitis Arthritis Asthma Atherosclerosis of coronary artery of [place] heart without angina pectoris Bleeding tendency Cancer [...] (Auto) 65.2, Lymph % (Auto) 17.9 L, [place] % (Auto) 8.9, Eos % (Auto) 6.0 [...] former tobacco use who presented to [facility] on 11/13/2022 with worsening dyspnea. 1. Volume [...] 55 minutes. Charges/Coding Visit Charges Inpatient E&M: 08272 Init Hosp L2 11/15/222032 <Electronically signed by Loki Lozoya DO> Cosigner Signature (if applicable): CC: Dr. Loki Lozoya DO; Dr. Donna Will MD~ Signed [facility] Work Phone: 1(455) 483-397009-22-2023 Discharge summary Author Jj Lealo [facility] November 15, 2022 7:09pm Note Date/Time November 15, 2022 2:59pm [facility] Medical Records Department [address] [place] [address] [place] [address] Emergency Department Summary 11/15/22 MR#: [id number] Acct: [id number] Name: JAYDON ALONZO Jr. Rep #:[id number] : 1950 72 From: Jj Garcia MD [...] Arthritis Asthma Atherosclerosis of coronary artery of [place] heart without angina pectoris Bleeding tendency Cancer [...] (Auto) 65.2 Lymph % (Auto) 17.9 L [place] % (Auto) 8.9 Eos % (Auto) 6.0 [...] (Rate is 74. The EKG is normal. [place] intervalis 152 ms. QRS duration 102 ms. QT duration 400 ms. [place] is normal) Treatment and Re-Evaluation :: Walked [...] Care Provider] - Disposition Disposition: Acute Care [facility] What to do if you have Problems For any increased pain, shortness of breath, bleeding, nausea or vomiting, chestpain, or any unexpected problems, contact your Primary Care Provider. Call [facility] ([phone]) or report to the closest Emergency Room. Call 911 if necessary. 11/15/221908 <Electronically signed by Jj Garcia MD> Cosigner Signature (if applicable): CC: Dr. Donna Will MD ~ Signed [facility] Work Phone: 1(546) 211-603009-22-2023 Discharge summary Author Jj Garcia [facility] November 15, 2022 7:09pm Note Date/Time November 15, 2022 2:59pm [facility] Medical Records Department [address] [place] [address] Emergency Department Summary 11/15/22 MR#: [id number] Acct: [id number] Name: JAYDON ALONZO JrJuan Rep #:[id number] : 1950 72 From: Jj Garcia MD [...] Arthritis Asthma Atherosclerosis of coronary artery of [place] heart without angina pectoris Bleeding tendency Cancer [...] (Auto) 65.2 Lymph % (Auto) 17.9 L [place] % (Auto) 8.9 Eos % (Auto) 6.0 [...] (Rate is 74. The EKG is normal. [place] intervalis 152 ms. QRS duration 102 ms. QT duration 400 ms. [place] is normal) Treatment and Re-Evaluation :: Walked [...] Provider] - Disposition Disposition: Acute Care Hospital [facility] What to do if you have Problems For any increased pain, shortness of breath, bleeding, nausea or vomiting, chestpain, or any unexpected problems, contact your Primary Care Provider. Call [facility] ([phone]) or report to the closest Emergency Room. Call 911 if necessary. 11/15/221908 <Electronically signed by Jj Garcia MD> Cosigner Signature (if applicable): CC: Dr. 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 Galeana, on Fridayof last week. He [...] Arthritis Asthma Atherosclerosis of coronary artery of [place] heart without angina pectoris Bleeding tendency Cancer [...] (1,000 unit) capsule 25 mcg PO DAILY dyynwww77/24/21 [History Last Taken 12/08/21] nitroglycerin 0.4 mg [...] (Auto) 68.2 Lymph % (Auto) 15.6 L [place] % (Auto) 10.4 H Eos % (Auto) [...] as directed. You have prescriptions waiting at [facility] for Carafate and Protonix. Disposition Disposition: Home, Self Care What to do if you have Problems For any increased pain, shortness of breath, bleeding, nausea or vomiting, chestpain, or any unexpected problems, contact your Primary Care Provider. Call [facility] [employer] ([phone]) or report to the closest Emergency Room. Call 911 if necessary. 08/29/221820 <Electronically signed by Adam Freeman MD> Cosigner Signature (if applicable): CC: Dr. Donna Will MD ~ Signed [facility] Work Phone: 1(677) 596-602207-06-2023 Hospital Discharge instructions Additional Instructions Follow-up with Dr. Galeana. They will attempt to contact you tomorrow for outpatient iron infusion. If you do not hear from them by 10 AM, call the office. Take your medications as directed. You have prescriptions waiting at [facility] for Carafate and Protonix. [facility] Work Phone: 1(173) 844-112204-12-2023 Procedure [facility] 05-16-2022 Procedure [facility]03-21-2023 Procedure note [facility]01-27-2023 Procedure [facility] 04-24-2021 Evaluation note* Diagnosis Onset Date [...] remission acute Atherosclerosis of coronary artery of [place] heart without angina pectoris chronic Chronic hypoxemic respiratory failure chronic COPD (chronic obstructive pulmonary disease) chronic Essential hypertension chron ic GI bleed April, chronic Iron deficiency anemia chron ic Obesity chronic Type 2 diabetes mellitus [facility] Work Phone: 1(665) 263-693103-01-2022 Evaluation note* Diagnosis Onset Date Resolution Status Iron deficiency anemia chron ic 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 Iron deficiency anemia chron ic 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 GI bleed April, chronic Iron deficiency anemia chron ic Nicotine dependence, cigarettes, in remission acute Atherosclerosis of coronary artery of [place] heart without angina pectoris chronic Chronic hypoxemic respiratory failure chronic COPD (chronic obstructive pulmonary disease) chronic Essential hypertension chron ic GI bleed April, chronic Iron deficiency anemia chron ic Obesity chronic Type 2 diabetes mellitus chr onic Anemia chronic Iron deficiency anemia chron ic 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 Atherosclerosis of coronary artery of [place] heart without angina pectoris chronic Essential hypertension [...] ic Hyperlipidemia chronic Type 2 diabetes mellitus [facility] Work Phone: Consult note Author Kellen Sanchez [facility] March 06, 2023 4:39pm Note Date/Time March 06, 2023 4 :39pm [facility] Medical Records Department [address] [place], [place] [address] [address] Counseling Note - Pharmacy 03/06/23 1636 MR#: [id number] Acct: [id number] Name: JAYDON ALONZO Jr. Rep #:[id number] : 1950 72 From: Kellen Sanchez PCP: Dr. Donna Will MD Status:ADM IN [facility] Service has performed [...] Signature (if applicable): Date CC: ~ Signed [facility] Work Phone: Evaluation note* Diagnosis Onset Date Resolution Status COVID-19 acute Acute hypoxemic respiratory failure due to COVID-19 resolved Encephalopathy acute resolve d FTT (failure to thrive) in adult resolved Hypoxia resolved COVID-19 acute Atherosclerosis of coronary artery of [place] heart without angina pectoris chronic Hyperlipidemia chronic Acute hypoxemic respiratory failure due to COVID-19 resolved Acute alteration in mental status resolved Acute respiratory failure with hypoxia resolved Hypoxemia resolved Pneumonia resolved Pneumonia acute Asthma chronic Atherosclerosis of coronary artery of [place] heart without angina pectoris chronic Chronic bronchitis [...] deficiency acute Chronic obstructive pulmonary disease chronic [facility] Work Phone: Evaluation note* Diagnosis Onset Date Resolution Status Acute alteration in mental status resolved Acute respiratory failure with hypoxia resolved Hypoxemia resolved Pneumonia resolved Pneumonia acute Asthma chronic Atherosclerosis of coronary artery of [place] heart without angina pectoris chronic Chronic bronchitis [...] History of diabetes mellitus, type II chronic [facility] Work Phone: Evaluation note* Diagnosis Onset Date Resolution Status Acute alteration in mental status resolved Acute respiratory failure with hypoxia resolved Hypoxemia resolved Pneumonia resolved Pneumonia acute Asthma chronic Atherosclerosis of coronary artery of [place] heart without angina pectoris chronic Chronic bronchitis [...] II chronic Generalized weakness acute Pneumonia acute [facility] Work Phone: Evaluation note* Diagnosis Onset [...] embolism acute Swelling of lower extremity acute [facility] Work Phone: Evaluation note* Diagnosis Onset Date Resolution Status Acute on chronic respiratory failure with hypoxemia chronic Chronic obstructive pulmonary disease chronic Chronic obstructive pulmonary disease chronic Hyperlipidemia chronic Generalized weakness resolve d Pneumonia resolved Iron deficiency anemia chron ic Swelling of lower extremity chronic Hypoxia acute Leukocytosis acute Pneumonia acute [facility] Work Phone: Evaluation note* Diagnosis Onset Date Resolution Status Acute on chronic respiratory failure with hypoxemia chronic Chronic obstructive pulmonary disease chronic Chronic obstructive pulmonary disease chronic Hyperlipidemia chronic Generalized weakness resolve d Pneumonia resolved Iron deficiency anemia chron ic Swelling of lower extremity chronic Pneumonia acute Hypoxia resolved Leukocytosis resolved Atherosclerosis of coronary artery of [place] heart without angina pectoris chronic Essential hypertension [...] chronic Type 2 diabetes mellitus chr onic [facility] Work Phone: Evaluation note* Diagnosis Onset Date Resolution Status Iron deficiency anemia chron ic Swelling of lower extremity chronic Pneumonia acute Hypoxia resolved Leukocytosis resolved Atherosclerosis of coronary artery of [place] heart without angina pectoris chronic Essential hypertension [...] acute Leukocytosis acute Pneumonia acute COPD exacerbation [facility] Work Phone: Evaluation note* Diagnosis Onset Date Resolution Status Iron deficiency anemia chron ic Swelling of lower extremity chronic Pneumonia acute Hypoxia resolved Leukocytosis resolved Atherosclerosis of coronary artery of [place] heart without angina pectoris chronic Essential hypertension [...] exacerbation chronic Iron deficiency anemia chron ic [facility] Work Phone: Evaluation note* Diagnosis Onset Date Resolution Status Iron deficiency anemia chron ic Swelling of lower extremity chronic Hypoxia resolved Leukocytosis resolved Pneumonia resolved Atherosclerosis of coronary artery of [place] heart without angina pectoris chronic Essential hypertension [...] 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 [facility] Work Phone: Evaluation note* Diagnosis Onset Date Resolution Status Hypoxia resolved Leukocytosis resolved Pneumonia resolved Atherosclerosis of coronary artery of [place] heart without angina pectoris chronic Essential hypertension [...] 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 [facility] Work Phone: Evaluation note* Diagnosis Onset [...] Bilateral pneumonia acute Debility acute Hypoxemia acute [facility] Work Phone: Evaluation note* Diagnosis Onset [...] with hypoxemia chronic Chronic obstructive pulmonary disease [facility] Work Phone: Evaluation note* Diagnosis Onset [...] failure chronic COPD (chronic obstructive pulmonary disease) [facility] Work Phone: Evaluation note* Diagnosis Onset [...] 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 [facility] Work Phone: Evaluation note* Diagnosis Onset [...] (chronic obstructive pulmonary disease) chronic Tobacco abuse [facility] Work Phone: Evaluation note* Diagnosis Onset [...] April, chronic Iron deficiency anemia chron ic [facility] Work Phone: Evaluation note* Diagnosis Onset [...] failure acute Atherosclerosis of coronary artery of [place] heart without angina pectoris chronic Chronic kidney [...] disease) chronic Nicotine dependence, cigarettes, in remission [facility] Work Phone: Evaluation note* Diagnosis Onset [...] failure acute Atherosclerosis of coronary artery of [place] heart without angina pectoris chronic Chronic kidney [...] Anemia acute Pleural effusion on right ac tangirnaq History of chronic kidney disease chronic History of COPD chronic [facility] Work Phone: Evaluation note* Diagnosis Onset [...] failure acute Atherosclerosis of coronary artery of [place] heart without angina pectoris chronic Chronic kidney [...] failure acute Pleural effusion on right ac tangirnaq COPD exacerbation chronic History of chronic kidney disease chronic History of COPD chronic History of coronary artery stent placement September chronic Type 2 diabetes mellitus chr onic History of pulmonary embolus (PE) April 30, 2021 resolved [facility] Work Phone: Evaluation note* Diagnosis Onset [...] failure acute Atherosclerosis of coronary artery of [place] heart without angina pectoris chronic Chronic kidney [...] failure acute Pleural effusion on right ac tangirnaq COPD exacerbation chronic History of chronic kidney disease chronic History of COPD chronic History of coronary artery stent placement September chronic Type 2 diabetes mellitus chr onic Acute hyperkalemia resolved Anemia resolved History of pulmonary embolus (PE) April 30, 2021 resolved Acute anemia acute Acute lactic acidosis acute LUIS (acute kidney injury) ac tangirnaq Elevated troponin I level ac tangirnaq Fall acute Fatigue acute Hemorrhagic shock acute Hyperglycemia acute Hypotension acute Leukocytosis acute Pleural effusion on right ac tangirnaq [facility] Work Phone: Evaluation note* Diagnosis Onset Date Resolution Status Anemia chronic Iron deficiency anemia chron ic Iron deficiency anemia refra ctory to iron therapy chronic Chronic hypoxemic respiratory failure chronic COPD (chronic obstructive pulmonary disease) chronic Nicotine dependence, cigarettes, in remission chronic Acute dyspnea acute Heart failure acute Pleural effusion on right ac tangirnaq COPD exacerbation chronic History of chronic kidney disease chronic History of COPD chronic History of coronary artery stent placement September chronic Type 2 diabetes mellitus chr onic Acute hyperkalemia resolved Anemia resolved History of pulmonary embolus (PE) April 30, 2021 resolved Acute anemia acute Acute hyperglycemia acute Acute lactic acidosis acute LUIS (acute kidney injury) ac tangirnaq Elevated troponin I level ac tangirnaq Fall acute Fatigue acute Hemorrhagic shock acute Hyperglycemia acute Hypotension acute Leukocytosis acute Pleural effusion on right ac tangirnaq Syncope acute Acute on chronic blood loss [...] resolved Acute upper GI bleed resolve d [facility] Work Phone: Evaluation note* Diagnosis Onset Date Resolution Status Anemia chronic Iron deficiency anemia chron ic Iron deficiency anemia refra ctory to iron therapy chronic Chronic hypoxemic respiratory failure chronic COPD (chronic obstructive pulmonary disease) chronic Nicotine dependence, cigarettes, in remission chronic Acute dyspnea acute Heart failure acute Pleural effusion on right ac tangirnaq COPD exacerbation chronic History of chronic kidney disease chronic History of COPD chronic History of coronary artery stent placement September chronic Type 2 diabetes mellitus chr onic Acute hyperkalemia resolved Anemia resolved History of pulmonary embolus (PE) April 30, 2021 resolved Acute anemia acute Acute hyperglycemia acute Acute lactic acidosis acute LUIS (acute kidney injury) ac tangirnaq Elevated troponin I level ac tangirnaq Fall acute Fatigue acute Hemorrhagic shock acute Hyperglycemia acute Hypotension acute Leukocytosis acute Pleural effusion on right ac tangirnaq Syncope acute Acute on chronic blood loss [...] fraction) acute Atherosclerosis of coronary artery of [place] heart without angina pectoris chronic Essential hypertension chron ic History of coronary artery stent placement September chronic Hyperlipidemia chronic Iron deficiency anemia chron ic [facility] Work Phone: Evaluation note* Diagnosis Onset Date Resolution Status Acute dyspnea acute Heart failure acute Pleural effusion on right ac tangirnaq COPD exacerbation chronic History of chronic kidney disease chronic History of COPD chronic History of coronary artery stent placement September chronic Type 2 diabetes mellitus chr onic Acute hyperkalemia resolved Anemia resolved History of pulmonary embolus (PE) April 30, 2021 resolved Acute anemia acute Acute hyperglycemia acute Acute lactic acidosis acute LUIS (acute kidney injury) ac tangirnaq Elevated troponin I level ac tangirnaq Fall acute Fatigue acute Hemorrhagic shock acute Hyperglycemia acute Hypotension acute Leukocytosis acute Pleural effusion on right ac tangirnaq Syncope acute Acute on chronic blood loss [...] deficiency anemia refra ctory to iron therapy [facility] Work [facility]: Hospital Discharge instructionsAmbulatory Orders* Prior Authorization Referral - ONC/HEM Location: None Selected [facility] Work Phone: Summary Purpose Family History [...] No May 07, 2021 5:39pm Power of Theater Set Production Designer No May 07 5:39pm Advance Directive Response Recorded Date/ Time Advance Directives No July 24 8:49am Living Will No July 24, 2021 8 :49am Power of Theater Set Production Designer No July 24, 2021 8:49am Advance Directive Response Recorded Date/ Time Advance Directives No July 24 8:49am Living Will No August 06, 2021 12:10pm Power of Theater Set Production Designer No August 06 12:10pm Advance Directive Response Recorded Date/ Time Advance Directives No July 24 8:49am Living Will No August 06, 2021 4:39pm Power of Theater Set Production Designer Yes August 06 4:39pm Advance Directive Response Recorded Date/ Time Name of Medical Power of Theater Set Production Designer Freida Alonzo August 06, 2021 4:39pm Advance Directives No July 24 8:49am Living Will No August 06, 2021 4:39pm Power of Theater Set Production Designer Yes August 06 4:39pm Advance Directive Response Recorded Date/ Time Name of Medical Power of Theater Set Production Designer Freida Cheri August 06, 2021 4:39pm Advance Directives No July 24 8:49am Living Will No October 01, 2021 2:51pm Power of Theater Set Production Designer No October 01 2:51pm Advance Directive Response Recorded Date/ Time Name of Medical Power of Theater Set Production Designer Freida Cheri August 06, 2021 4:39pm Name of Medical Power of Theater Set Production Designer Freida Hceri October 01, 2021 7:57pm Advance Directives No July 24 8:49am Living Will Yes October 01, 2021 7:57pm Power of Theater Set Production Designer Yes October 01 7:57pm Advance Directive Response Recorded Date/ Time Name of Medical Power of Theater Set Production Designer Freida Cheri August 06, 2021 4:39pm Name of Medical Power of Theater Set Production Designer Freida Cheri October 01, 2021 7:57pm Name of Medical Power of Theater Set Production Designer freida [email or web address] October 23, 2021 2:40pm Advance Directives No July 24 8:49am Living Will Yes October 23 2:40pm Power of Theater Set Production Designer Yes October 23 022 2:40pm Advance Directive Response Recorded Date/ Time Name of Medical Power of Theater Set Production Designer Freida Cheri October 01, 2021 7:57pm Name of Medical Power of Theater Set Production Designer freida [email or web address] October 23, 2021 2:40pm Name of Medical Power of Theater Set Production Designer FREIDA CHERI December 08, 2021 5:32pm Advance Directives No July 24 8:49am Living Will Yes December 08 5:32pm Power of Theater Set Production Designer Yes December 08, 2021 5:32pm Advance Directive Response Recorded Date/ Time Name of Medical Power of Theater Set Production Designer Freida [place] October 01, 2021 7:57pm Name of Medical Power of Theater Set Production Designer freida [email or web address] October 23, 2021 2:40pm Name of Medical Power of Theater Set Production Designer FREIDA CHERI December 08, 2021 8:10pm Advance Directives No July 24 8:49am Living Will Yes December 08 8:10pm Power of Theater Set Production Designer Yes December 08, 2021 8:10pm Advance Directive Response Recorded Date/ Time Name of Medical Power of Theater Set Production Designer Freidajovana Alonzo October 01, 2021 6:57pm Name of Medical Power of Theater Set Production Designer freidajovana roberts October 23, 2021 1:40pm Name of Medical Power of Theater Set Production Designer FREIDA CHERI December 08, 2021 7:10pm Advance Directives No July 24 7:49am Living Will Yes December 08 7:10pm Power of Theater Set Production Designer Yes December 08, 2021 7:10pm Advance Directive Response Recorded Date/ Time Name of Medical Power of Theater Set Production Designer freidajovana roberts October 23, 2021 1:40pm Name of Medical Power of Theater Set Production Designer FREIDA CHERI December 08, 2021 7:10pm Name of Medical Power of Theater Set Production Designer joseph alonzo February 14, 2022 4:33pm Advance Directives No July 24 7:49am Living Will Yes February 14 4:33pm Power of Theater Set Production Designer Yes February 14, 2022 4:33pm Advance Directive Response Recorded Date/ Time Name of Medical Power of Theater Set Production Designer freida roberts October 23, 2021 1:40pm Name of Medical Power of Theater Set Production Designer FREIDA CHERI December 08, 2021 7:10pm Name of Medical Power of Theater Set Production Designer freida cheri February 14, 2022 10:48pm Advance Directives No July 24 7:49am Living Will No February 14 10:48pm Power of Theater Set Production Designer Yes February 14, 2022 10:48pm Advance Directive Response Recorded Date/ Time Name of Medical Power of Theater Set Production Designer FREIDA CHERI December 08, 2021 7:10pm Name of Medical Power of Theater Set Production Designer freida cheri February 14, 2022 10:48pm Advance Directives No July 24 7:49am Living Will No February 14 10:48pm Power of Theater Set Production Designer Yes February 14, 2022 10:48pm Advance Directive Response Recorded Date/ Time Name of Medical Power of Theater Set Production Designer freida cheri February 14, 2022 11:48pm Advance Directives No July 24 8:49am Living Will No February 14 11:48pm Power of Theater Set Production Designer Yes February 14, 2022 11:48pm Advance Directive Response Recorded Date/ Time Advance Directives No July 24 8:49am Living Will No February 14 11:48pm Power of Theater Set Production Designer Yes February 14, 2022 11:48pm Advance Directive Response Recorded Date/ Time Advance Directives No August 08 3:27pm Living Will No August 29, 2022 4 :36pm Power of Theater Set Production Designer No August 29, 2022 4:36pm Advance Directive Response Recorded Date/ Time Name of Medical Power of Theater Set Production Designer November 15, 2022 3:27pm Advance Directives No August 08 3:27pm Living Will No November 15, 2022 3:27pm Power of Theater Set Production Designer Yes October 3:27pm Advance Directive Response Recorded Date/ Time Name of Medical Power of Theater Set Production Designer -Freida Romero November 15, 2022 8:16pm Advance Directives No August 08 3:27pm Living Will No November 15, 2022 8:16pm Power of Theater Set Production Designer Yes October 8:16pm Advance Directive Response Recorded Date/ Time Name of Medical Power of Theater Set Production Designer -Freida Romero November 15, 2022 7:16pm Advance Directives No August 08 2:27pm Living Will No November 15, 2022 7:16pm Power of Theater Set Production Designer Yes October 7:16pm Advance Directive Response Recorded Date/ Time Name of Medical Power of Theater Set Production Designer -Freida Romero November 15, 2022 7:16pm Advance Directives No August 08 2:27pm Living Will No February 28 11:16am Power of Theater Set Production Designer No February 28 11:16am Advance Directive Response Recorded Date/ Time Name of Medical Power of Theater Set Production Designer -Freida Romero November 15, 2022 7:16pm Advance Directives No August 08 2:27pm Living Will No February 28 5:08pm Power of Theater Set Production Designer No February 28 5:08pm Advance Directive Response Recorded Date/ Time Name of Medical Power of Theater Set Production Designer -Freida Romero November 15, 2022 7:16pm Name of Medical Power of Theater Set Production Designer freida March 16, 2023 1:59pm Advance Directives No August 08 2:27pm Living Will Yes March 16 1:59pm Power of Theater Set Production Designer Yes March 16, 2023 1:59pm Advance Directive Response Recorded Date/ Time Name of Medical Power of Theater Set Production Designer freida March 16, 2023 1:59pm Advance Directives No August 08 2:27pm Living Will No March 16 5:33pm Power of Theater Set Production Designer No March 16, 2023 5:33pm Advance Directive Response Recorded Date/ Time Name of Medical Power of Theater Set Production Designer freida March 16, 2023 2:59pm Advance Directives No August 08 3:27pm Living Will No March 16 6:33pm Power of Theater Set Production Designer No March 16, 2023 6:33pm Advance Directive Response Recorded Date/ Time Living Will No March 16 6:33pm Do you have a Healthcare Power of Theater Set Production Designer? No March 16, 2023 6:33pm Living Will No November 14, 2023 9:10pm Do you have a Healthcare Power of Theater Set Production Designer? No November 14, 2023 9:10pm Living Will No April 05 025 10:43pm Do you have a Healthcare Power of Theater Set Production Designer? Yes April 05, 2024 10:43pm Name of Medical Power of Theater Set Production Designer Ray Alonzo April 05, 2024 10:43pm Do you have a Healthcare Power of Theater Set Production Designer? Yes June 20, 2024 8:00pm Name of Medical Power of Theater Set Production Designer ray alonzo June 20, 2024 8:00pm Advance Directives No August 08 3:27pm Advance Directive Response Recorded Date/ Time Living Will No March 16 6:33pm Do you have a Healthcare Power of Theater Set Production Designer? No March 16, 2023 6:33pm Living Will No February 10th, 2 025 10:43pm Do you have a Healthcare Power of Theater Set Production Designer? Yes April 05, 2024 10:43pm Name of Medical Power of Theater Set Production Designer Ray Alonzo April 05, 2024 10:43pm Do you have a Healthcare Power of Theater Set Production Designer? No July 08, 2024 12:44pm Do you have a Healthcare Power of Theater Set Production Designer? Yes June 20, 2024 8:00pm Name of Medical Power of Theater Set Production Designer ray alonzo June 20, 2024 8:00pm [...] ENCEPHALOPATHY ACUTE METABOLIC ENCEPHALOPATHY ACUTE METABOLIC ENCEPHALOPATHY [facility] FU hyperglycemmia ftt adult ftt adult [...] Hypoxia COVID-19 Atherosclerosis of coronary artery of [place] heart without angina pectoris Hyperlipidemia Acute hypoxemic respiratory failure due to COVID-19 Acute alteration in mental status Acute respiratory failure with hypoxia Hypoxemia Pneumonia Pneumonia Asthma Atherosclerosis of coronary artery of [place] heart without angina pectoris Chronic bronchitis History [...] Hypoxia COVID-19 Atherosclerosis of coronary artery of [place] heart without angina pectoris Hyperlipidemia Acute hypoxemic respiratory failure due to COVID-19 Acute alteration in mental status Acute respiratory failure with hypoxia Hypoxemia Pneumonia Pneumonia Asthma Atherosclerosis of coronary artery of [place] heart without angina pectoris Chronic bronchitis History [...] Pneumonia Asthma Atherosclerosis of coronary artery of [place] heart without angina pectoris Chronic bronchitis History [...] Pneumonia Asthma Atherosclerosis of coronary artery of [place] heart without angina pectoris Chronic bronchitis History [...] Pneumonia Asthma Atherosclerosis of coronary artery of [place] heart without angina pectoris Chronic bronchitis History [...] Hypoxia Leukocytosis Atherosclerosis of coronary artery of [place] heart without angina pectoris Essential hypertension Hyperlipidemia [...] Hypoxia Leukocytosis Atherosclerosis of coronary artery of [place] heart without angina pectoris Essential hypertension Hyperlipidemia [...] Hypoxia Leukocytosis Atherosclerosis of coronary artery of [place] heart without angina pectoris Essential hypertension Hyperlipidemia [...] H FU ALSO ORDERS FROM [facility] Reason for Visit Iron deficiency anem ia Swelling of lower extremity Hypoxia Leukocytosis Pneumonia Atherosclerosis of coronary artery of [place] heart without angina pectoris Essential hypertension Hyperlipidemia [...] [facility] [id number] Reason for Visit Hypoxia Leukocytosis Pneumonia Atherosclerosis of coronary artery of [place] heart without angina pectoris Essential hypertension Hyperlipidemia [...] FROM DR [facility] [id number] [facility] BILATERAL PNEUMONIA Reason [...] FROM DR [facility] [id number] [facility] BILATERAL PNEUMONIA BILATERAL [...] FROM DR [facility] [id number] [facility] BILATERAL PNEUMONIA BILATERAL [...] FROM DR [facility] [id number] [facility] BILATERAL PNEUMONIA BILATERAL [...] in remission Atherosclerosis of coronary artery of [place] heart without angina pectoris Chronic hypoxemic respiratory [...] in remission Atherosclerosis of coronary artery of [place] heart without angina pectoris Chronic hypoxemic respiratory failure COPD (chronic obstructive pulmonary disease) Essential hypertension GI bleed Iron deficiency anemia Obesity Type 2 diabetes mellitus Anemia Iron deficiency anemia 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 Atherosclerosis of coronary artery of [place] heart without angina pectoris Essential hypertension Hyperlipidemia [...] in remission Atherosclerosis of coronary artery of [place] heart without angina pectoris Chronic hypoxemic respiratory failure COPD (chronic obstructive pulmonary disease) Essential hypertension GI bleed Iron deficiency anemia Obesity Type 2 diabetes mellitus Anemia Iron deficiency anemia 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 Atherosclerosis of coronary artery of [place] heart without angina pectoris Essential hypertension Hyperlipidemia [...] Heart failure Atherosclerosis of coronary artery of [place] heart without angina pectoris Chronic kidney disease [...] Heart failure Atherosclerosis of coronary artery of [place] heart without angina pectoris Chronic kidney disease [...] Heart failure Atherosclerosis of coronary artery of [place] heart without angina pectoris Chronic kidney disease [...] Heart failure Atherosclerosis of coronary artery of [place] heart without angina pectoris Chronic kidney disease [...] BLEED SEVERE ACUTE ON CHRONIC ANEMIA/GI BLEED [facility] Discharge FU Reason for Visit Anemia [...] BLEED SEVERE ACUTE ON CHRONIC ANEMIA/GI BLEED [facility] Discharge FU [facility] Reason for [...] BLEED SEVERE ACUTE ON CHRONIC ANEMIA/GI BLEED [facility] Discharge FU [facility] 1 [...] ejection fraction) Atherosclerosis of coronary artery of [place] heart without angina pectoris Essential hypertension History [...] BLEED SEVERE ACUTE ON CHRONIC ANEMIA/GI BLEED [facility] Discharge FU [facility] 1 [...] M March 03, 2024 9: 52am 5 [facility] March 05, 2024 1 2:53pm 6 M [...] 2:1 4pm Chronic hypoxemic respiratory failure [facility] 2024 2:14pm COPD (chronic obstructive pulmonary [...] 2024 2:1 4pm Chronic hypoxemic respiratory failure [facility] 2024 2:14pm COPD (chronic obstructive pulmonary dise [...] 2024 2:1 4pm Chronic hypoxemic respiratory failure [facility] 2024 2:14pm COPD (chronic obstructive pulmonary dise [...] section and content) DATE CREATED AUTHOR 01/29/2019 [facility] DATE CREATED AUTHOR AUTHOR'S ORGANIZ ATION 03/23/2023 [facility] DATE CREATED AUTHOR AUTHOR'S ORGANIZ ATION 08/16/2024 [facility] Goals (unrecognized section and content) Goals may [...] Greenberg , Family Provider Active DANNIELLE PIÑA SALESPERSON [employer]EWEL[employer]-C Primary Care Provider Active Team Status: Inactive Member Role Status Dates DANNIELLE PIÑA NP-C Primary Care Provider, Referring Provider Active Dr. Tobi Zapata MD Attending Provider Active Team Status: Active Member Role Status Dates DANNIELLE PIÑA [employer]ESPERSON [employer]-C Primary Care Provider Active Dr. Margie Joy DO Emergency Provider Active Dr. Janice Mackey MD Admit Provider, Attending Provider, Other Provider Active Team Status: Active Member Role Status Dates DANNIELLE PIÑA [employer]ESPERSON [employer]-C Primary Care Provider Active Dr. Margie Joy DO Emergency Provider Active Dr. Janice Mackey MD Admit Provider, Other Provider Active Dr. Suze Rosas MD Attending Provider, Other Provider Active Team Status: Active Member Role Status Meagan PIÑA [employer]ESPERSON [employer]-C Primary Care Provider Active Dr. Margie Joy , Emergency Provider Active Dr. Janice Mackey MD Admit Provider, Other Provider Active Dr. Suze Rosas MD Other Provider Active Dr. Jordan Ortiz MD Attending Provider Active Team Status: Active Member Role Status Meagan PIÑA , [employer]ESPERSON [employer] Primary Care Provider Active Dr. Margie Joy DO Emergency Provider Active Dr. Janice Mackey MD Admit Provider, Other Provider Active Dr. Jordan Ortiz MD Referring Provider, Other Provid er Active Dr. Suze Rosas MD Other Provider Active Dr. Khai Galaena DO Attending Provider Active Team Status: Active Member Role Status Meagan PIÑA , [employer]ESPERSON [employer]-C Primary Care Provider Active Dr. Khai Galeana DO Attending Provider Active Team Status: Active Member Role Status Meagan PIÑA , [employer]ESPERSON [employer]-C Primary Care Provider Active Dr. Margie Joy DO Emergency Provider Active Dr. Janice Mackey MD Admit Provider, Other Provider Active Dr. Jordan Ortiz MD Attending Provider, Other Provid er Active Dr. Suze Rosas MD Other Provider Active Team Status: Inactive Member Role Status Meagan PIÑA , [employer]ESPERSON [employer]-C Primary Care Provider, Referring Provider Active Dr. Khai Galeana , Attending Provider Active Team Status: Inactive Member Role Status Meagan PIÑA , [employer]ESPERSON [employer] Primary Care Provider, Referring Provider Active Dr. Anthony Singleton DO Attending Provider Active Team Status: Active Member Role Status Meagan PIÑA , [employer]ERSON [employer] Primary Care Provider Active Dr. Faisal Walker MD Emergency Provider Active Dr. Tobi Shannon MD Admit Provider, Attending Provider, Other Provider Active Team Status: Active Member Role Status Meagan PIÑA , [employer]ESPERSON [employer] Primary Care Provider Active Dr. Faisal Walker MD Emergency Provider Active Dr. Tobi Shannon MD Admit Provider, Referring Provider, Other Provider Active Dr. Suze Rosas MD Other Provider Active Dr. Alexi Roblero MD Attending Provider, Other Provid er Active Dr. Anthony Singleton , Other Provider Active Dr. Rambo Bruner MD Other Provider Active Dr. Afshin Pablo MD Other Provider Active More Pulido SALESPERSON JEWELRY, SALESPERSON [employer]EWEL[employer]-C Other Provider Active Team Status: Active Member Role Status Meagan PIÑA , [employer]ESPERSON [employer] Primary Care Provider Active Dr. Faisal Walker MD Emergency Provider Active Dr. Tobi Shannon MD Admit Provider, Other Provide r Active Dr. Suze Rosas MD Attending Provider, Other Provider Active Dr. Alexi Roblero MD Other Provider Active Dr. Anthony Singleton DO Other Provider Active Dr. Rambo Bruner MD Other Provider Active Dr. Afshin Pablo MD Other Provider Active More Pulido SALESPERSON [employer]ELRY, [employer]ESPERSON [employer]-C Other Provider Active Team Status: Active Member Role Status Meagan PIÑA , [employer]ESPERSON [employer]-C Primary Care Provider Active Dr. Faisal Walker MD Emergency Provider Active Dr. Tobi Shannon MD Admit Provider, Other Provide r Active Dr. Alexi Roblero MD Other Provider Active Dr. Anthony Singleton DO Attending Provider, Other Provide r Active Dr. Rambo Bruner MD Other Provider Active Dr. Afshin Pablo MD Other Provider Active More Pulido NP, [employer]ESPERSON [employer]-C Other Provider Active Dr. Jordan Ortiz MD Other Provider Active Dr. Suze Rosas MD Other Provider Active Team Status: Active Member Role Status Meagan PIÑA , [employer]ESPERSON [employer] Primary Care Provider Active Dr. Faisal Walker MD Emergency Provider Active Dr. Tobi Shannon MD Admit Provider, Other Provide r Active Dr. Alexi Rolbero MD Other Provider Active Dr. Anthony Singleton DO Other Provider Active Dr. Rambo Bruner MD Other Provider Active Dr. Afshin Pablo MD Other Provider Active More Pulido NP, [employer]ESPERSON [employer]-C Other Provider Active Dr. Jordan Ortiz MD Attending Provider, Other Provid er Active Dr. Suze Rosas MD Other Provider Active Team Status: Active Member Role Status Meagan PIÑA , [employer]ESPERSON [employer] Primary Care Provider Active Dr. Tobi Zapata MD Attending Provider, Referring Pro vider Active Team Status: Inactive Member Role Status Meagan PIÑA , [employer]ERSON [employer] Primary Care Provider Active Dr. Margie Joy DO Emergency Provider Active Dr. Janice Mackey MD Admit Provider, Other Provider Active Dr. Jordan Ortiz MD Attending Provider Active Dr. Suze Rosas MD Other Provider Active Team Status: Inactive Member Role Status Dates DANNIELLE ONEALMONS , [employer]ESPERSON [employer] Primary Care Provider Active Dr. Khai Galeana , Attending Provider Active Team Status: Inactive Member Role Status Dates DANNIELLE PIÑA , [employer]ESPERSON [employer] Primary Care Provider, Attending Provider Active Team Status: Inactive Member Role Status Dates DANNIELLE ONEALMONS , [employer]ESPERSON [employer] Primary Care Provider Active Dr. Faisal Walker MD Emergency Provider Active Dr. Tobi Shannon MD Admit Provider, Other Provide r Active Dr. Alexi Roblero MD Other Provider Active Dr. Anthony Singleton DO Other Provider Active Dr. Rambo Bruner MD Other Provider Active Dr. Asfhin Pablo MD Other Provider Active More Pulido SALESPERSON JEWELRY, [employer]ESPERSON [employer]-C Other Provider Active Dr. Jordan Ortiz MD Attending Provider Active Dr. Suze Rosas MD Other Provider Active Team Status: Active Member Role Status Dates DANNIELLE ONEALMONS , [employer]ESPERSON [employer]-C Primary Care Provider Active Dr. Anthony Singleton DO Attending Provider, Other Provide r Active Team Status: Inactive Member Role Status Dates DANNIELLE BRYANS , [employer]ESPERSON [employer] Primary Care Provider Active Dr. Anthony Singleton DO Attending Provider Active Team Status: Active Member Role Status Dates DANNIELLE BRYANS , [employer]ESPERSON [employer] Primary Care Provider Active Dr. Anthony Singleton DO Attending Provider Active Team Status: Inactive Member Role Status Dates DANNIELLE BRYANS , [employer]ESPERSON [employer] Primary Care Provider, Referring Provider Active More Pulido [employer]ESPERSON [employer]RY, [employer]ESPERSON [employer]C Attending Provider Active Team Status: Inactive Member Role Status Dates DANNIELLE PIÑA , [employer]ESPERSON [employer]-C Primary Care Provid er, Attending Provider, Referring Provider Active Team Status: Active Member Role Status Dates DANNIELLE ONEALMONS , [employer]ESPERSON [employer] Primary Care Provider Active Dr. Anthony Singlteon DO Attending Provider, Referring Provider, Other Provider Active Team Status: Inactive Member Role Status Dates DANNIELLE ONEALMONS , [employer]ESPERSON [employer] Primary Care Provider Active Dr. Khai Galeana DO Attending Provider, Referring Provider Active Dr. Nate Bearden MD Other Provider Active Team Status: Active Member Role Status Dates Dr. Mario Greenberg , Family Provider Active Dr. Donna Will MD Primary Care Provider Active Team Status: Inactive Member Role Status Dates DANNIELLE PIÑA , [employer]ESPERSON [employer] Primary Care Provider Active Dr. Donna Will MD Attending Provider Active Team Status: Inactive Member Role Status Dates DANNIELLE PIÑA , SALESPERSON JEWELRY-C Primary Care Provider, Referring Provider Active FRIEN Active Dr. Khai Galeana DO Attending Provider Active Team Status: Inactive Member Role Status Dates DANNIELLE PIÑA , SALESPERSON JEWELRY-C Primary Care Provider Active Dr. Nate Bearden MD Attending Provider, Referr ing Provider Active Team Status: Inactive Member Role Status Dates Dr. Donna Will MD Primary Care Provider Active Adam Freeman MD Emergency Provider Active Team Status: Active Member Role Status Dates DANNIELLE PIÑA SALESPERSON JEWELRY-C Primary Care Provider Active Dr. Khai Galeana DO Attending Provider, Referring Provider Active Dr. Tobi Zapata MD Other Provider Active Team Status: Inactive Member Role Status Dates DANNIELLE PIÑA , SALESPERSON JEWELRY-C Referring Provider Active Dr. Norm Mello MD Attending Provider Active Dr. Donna Will MD Primary Care Provider Active Team Status: Inactive Member Role Status Dates Dr. Tobi Zapata MD Attending Provider Active Dr. Donna Will MD Primary Care Provider, Referri ng Provider Active Team Status: Inactive Member Role Status Dates Dr. Donna Will MD Primary Care Provider, Referri ng Provider Active Martha Dodson SALESPERSON JEWELRY, SALESPERSON JEWELRY-C Attending Provider Active Team Status: Inactive Member [...] Member Role Status Dates DANNIELLE PIÑA , SALESPERSON JEWELRY-C Primary Care Provider Active Dr. Khai Galeana [...] Provider, Referri ng Provider Active More Pulido SALESPERSON JEWELRY, SALESPERSON JEWELRY-C Attending Provider Active Team Status: Inactive Member Role Status Dates More Pulido SALESPERSON JEWELRY, SALESPERSON JEWELRY-C Attending Provider Active Dr. Donna Will MD [...] Claudine Andrade MD Other Provider Active Dr. aMrvin Coats MD Other Provider Active Dr. Elizabeth [...] Carlito Cárdenas MD Other Provider Active Dr. Claduine Andrade MD Other Provider Active Dr. Marvin Coats MD Other Provider Active Dr. Elizabeth Wilson MD Other Provider Active Dr. Aric Leon MD Other Provider Active Dr. Rajeev Dalton MD Other Provider Active Dr. Roberto Escalante MD Other Provider Active Dr. Madi Tavarez MD Other Provider Active Dr. Zhang Concepcion MD Other Provider Active Dr. Cliev Sharp MD Referring Provider, Other Provi jose [...] Roblero MD Other Provider Active Dr. Anthony Singleotn , Other Provider Active Dr. Carlito Cárdenas [...] Provider, Referri ng Provider Active Jennifer Galdamez SALESPERSON JEWELRY, SALESPERSON JEWELRY-C Attending Provider Active Team Status: Active Member Role Status Dates Dr. Donna Will MD Primary Care Provider Active Jennifer Galdamez SALESPERSON JEWELRY, SALESPERSON JEWELRY-C Attending Provider Active Team Status: Inactive Member Role Status Dates Dr. Donna Will MD Primary Care Provider Active Jennifer Galdamez SALESPERSON JEWELRY, SALESPERSON JEWELRY-C Attending Provider Active Team Status: Active Member [...] St art: April 06, 2024 Dr. Roberto Esaclante MD Other Provider Active Star t: April [...] Active St art: April 07, 2024 Dr. eLyda Fischer MD Other Provider Active Start: April [...] St art: April 08, 2024 Dr. Leyda Fishcer MD Other Provider Active Start: April 08, [...] End: April 27, 2024 Martha Dodson NP, SALESPERSON JEWELRY-C Attending Provider Active Start: April 27, 2024 [...] Active Member Role Status Dates DANNIELLE PIÑA SALESPERSON JEWELRY-C Primary Care Provider Active Start: July 20, [...] BE BASED ON THE PRIMARY CLINICAL RECORDS. [facility]. provides no warranty or guarantee of the accuracy or completeness of information in this document.
--- NOTE | 2024-08-21 12:50 | CASEMGMT ---
Care Management Face to Face with patient for initial transition planning/care coordination assessment in the ED.? This financial underwriter introduced self and role at [facility]. Patient alert and oriented only for a brief amount of time when he had to urinate; otherwise, patient slept throughout the assessment. Patient ?s? [id number], Juliana ( of patient?s son Ray) assisted with assessment and was able to answer most questions.? Care providers, pharmacy, and demographics verified. Admitting Diagnosis: Acute and chronic respiratory failure with hypercapnia Other diagnosis history: Including but not limited to: MRSA, COPD with acute exacerbation, LUIS, FTT in adult, CKD, stage III (moderate), In home oxygen therapy, HTN, Type 2 DM, DVT, bleeding tendency, ulcer, Arthritis, Cancer, Non-Hodgkin lymphoma, Obesity, RA and 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 complications. PCP: Dr. Will Specialists: ?Wound, heart and pulmonology and Gastro (Dr. Galeana). Preferred Pharmacy: [email or web address] Prescription Benefit: Yes Living Will/HPOA: ?Yes and in electronic medical records LNOK: Patient?s sons, Ray of [place] and Barron of [place] and daughter Prabha who was described as having special needs and resides in a nursing home setting. Living Arrangements: Patient has his own home that patient?s granddaughter is also living in that?s a 2-story home.? Patient?s room and bathroom are on the first floor and patient has a hospital bed in his home. Though patient has his own home, patient has been staying with his son Ray and Ray?s Juliana since November of 2023 to make sure that all of patient?s needs are being taken care of. The home was described as being a [id number] with 2 steps leading in/out of the house with a handrail. Juliana denied any environmental barriers. Transportation: Patient does not drive; Ray and Juliana provide all transportation needs. DME: Oxygen (4 liters, continuous) through [facility], concentrator, grab-bars by shower, shower chair, RTS, BSC, standard cane, quad cane, lift chair, standard walker, standard rollator, wheelchair and lift chair. Hospital bed at own home. HHC: Previous: PT through [facility]. SNF/Rehab: Denied previous history however Juliana stated she feels like patient is in need of a SNF placement at this time. Community Resources: [facility]; Palliative Care. Juliana made a request to see if patient meets criteria for hospice. Behavioral Health History: Denied Patient goals: Patient slept through assessment and would benefit from being spoken to directly about his preferences at this time. ? Disposition Plan: admission to acute; RN CM/SW to follow for discharge planning needs that may arise. Farida Santana, CODE INSPECTOR, SCHEDULE SUPERVISOR
[2024-08-21 13:05] LABS: Color, Urine Yellow (Yellow); Glucose, Dipstick 1000 mg/dl (Normal); Ketone-Dipstick Negative (Negative); Leukocyte Esterase-Dipstick 500 /ul (Negative); Nitrite-Dipstick Negative (Negative); Occult Blood-Urine 10 /ul (Negative); Protein-Dipstick 30 mg/dl (Negative); Specific Gravity, Urine 1.010 (1.002-1.030); Urine Bilirubin Dipstick Negative (Negative)
[2024-08-21 13:49] LABS: Magnesium 2.0 mg/dL (1.5-2.2)
[2024-08-21 13:52] LABS: Troponin T High Sens 2 HR 103 ng/L (<=22)
[2024-08-21 13:56] LABS: Red Blood Cells-Urine 0-5 SEEN /hpf (0-5); Squamous Epithelial Cells - UA 0-5 SEEN /hpf (0-5)
[2024-08-21] MEDS: Azithromycin 500 MG in 0.9% Normal Saline (250mL Bag) 250 ML 255 MG IV (14:49)
[2024-08-21 16:29] LABS: Troponin T High Sens 4 HR 95 ng/L (<=22)
--- NOTE | 2024-08-21 17:19 | CON.PCM.CC_ITS ---
HPI Consult Data Date of Consult: 08/21/24 HPI Narrative Reason for Consultation: Acute hypoxemic and chronic hypercapnic rrespiratory failure HPI Narrative: SAL ALONZO, is a 73 M who presents with acute SOB. He states he has been hospitalized previously for this in the past, associated with LOC. He denies wheezing or worsening swelling in the extremities with the exception of the L leg, which has been slowly having more swelling problems over time. He drinks ~1500mL fluid a day (~75oz) he says. He has not changed sodium intake. He takes a half tab of lasix daily. He has quit smoking about 2 months ago and does not know how severe his COPD is. He has never been tested for OSAS. He estimates that he cannot walk a full city block before runnign out of breath and uses 4- 6Lpm NC O2 at home with a concentrator. IN the ED, patient was so hypoxic and with increase WOB, he required NIPPV. However, at the time of evaluation, he is on 4Lpm NC O2 and in NAD. [facility] Medical History MRSA (methicillin resistant staph aureus) culture positive Ischemic cardiomyopathy COVID-19 Lethargic COPD with acute exacerbation Elevated troponin I level LUIS (acute kidney injury) Hypoxemia Chronic kidney disease (CKD), stage III (moderate) Acute hypoxic on chronic hypercapnic respiratory failure FTT (failure to thrive) in adult Former smoker On home oxygen therapy Bleeding tendency Ulcer High cholesterol History of stress test HTN (hypertension) Tobacco abuse History of pulmonary embolus (PE) (04/30/21) Essential hypertension Type 2 diabetes mellitus DVT (deep venous thrombosis) (05/01/21) Rhinovirus Acute respiratory failure with hypoxia Physical debility COVID-19 in immunocompromised patient Nicotine dependence, cigarettes, uncomplicated Diabetes Arthritis Cancer COPD (chronic obstructive pulmonary disease) History of basal cell carcinoma Atherosclerosis of coronary artery of [place] heart without angina pectoris Pneumonia Non-Hodgkin lymphoma History of pilonidal cyst Allergic rhinitis 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 complications Gastritis Colon polyp Obesity Asthma Chronic bronchitis Positive colorectal cancer screening using Cologuard test RA (rheumatoid arthritis) Home Medications ?Medication ?Instructions ?Recorded ?Last Taken ?Type finasteride 5 mg tablet 5 mg PO DAILY prostate 08/1407/07/24 History tamsulosin 0.4 mg capsule 0.4 mg PO QHS prostate 08/1407/07/24 History multivitamin 1 tab PO DAILY vitamin 09/1307/07/24 History atorvastatin 40 mg tablet 20 mg (1/2 x 40 mg) PO QHS 0 09/18/23 07/07/24 Rx cholesterol #90 tabs budesonide 1 mg/2 mL suspension 1 mg (2 mL) inhalation Q12H 09/19/23 07/07/24 Rx for nebulization wheezing/SOB #120 mL ipratropium 0.5 mg-albuterol 3 mg 3 ml inhalation Q4H PRN PRN SOB 09/19/23 07/07/24 Rx (2.5 mg base)/3 mL nebulization &/OR WHEEZING #270 mL soln escitalopram oxalate 10 mg tablet 10 mg PO DAILY mood 90 days #90 10/29/23 07/07/24 Rx tabs mirtazapine 15 mg tablet (Remeron) 7.5 mg (1/2 x 15 mg ) PO QHS sleep 10/29/23 07/07/24 Rx #90 tabs insulin aspart U-100 100 unit/mL See Protocol subcut A CHS high 11/12/23 07/07/24 Rx (3 mL) subcutaneous pen blood glucose 1 month #15 mL needle (disp) 32 gauge 32 gauge x #100 ea 11/12/23 Unk nown Rx 07/09 (Easy Touch Hypodermic Needle) pen needle, diabetic 32 gauge x #100 ea 12/03/23 Unkno wn Rx 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 sensor (FreeStyle #1 ea 12/24/23 Unknown Rx Basilio 3 Sensor device) 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,editor managing newspaper,cont #1 ea 12/24/23 Unknown Rx (FreeStyle Basilio 3 [place]) furosemide 40 mg tablet (Lasix) 20 mg (1/2 x 40 mg) PO DAILY 03/08/24 07/07/24 Rx diuretic #60 tabs empagliflozin 10 mg tablet 10 mg PO QDAY diabetes 02/2507/07/24 History (Jardiance) ferrous sulfate 325 mg (65 mg 325 mg PO QODAY Suppleme nt 04/05/24 07/07/24 History iron) tablet (FeroSul) insulin glargine-yfgn 100 unit/mL 20 unit (0.2 mL) sub cut BIDCM high 06/25/24 07/08/24 Rx (3 mL) subcutaneous pen blood glucose #15 mL cholecalciferol (vitamin D3) 50 50 mcg PO QDAY 5 07/07/24 History mcg (2,000 unit) capsule pantoprazole 40 mg tablet,delayed 40 mg PO BID 5 07/07/24 History release (Protonix) carvedilol 3.125 mg tablet 3.125 mg PO BID BP #60 tabs 07/26/24 Unknown Rx Allergy/AdvReac Type Severity Reaction Status Date / Time No Known Allergies Allergy Verified 08/21/24 10:26 Family History Father Arthritis Bleeding disorder Hypertension Kidney disease Cancer Skin Anemia blood clots Emphysema lung Mother Colon cancer Cancer Lung Cancer Diabetes Brother Thyroid disorder Surgical History History of embolic filter insertion History of heart artery stent Status post cardiac surgery H/O cardiac catheterization Presence of IVC filter (04/2021) History of coronary artery stent placement (10/22/13) History of thymectomy Hx of lymph node excision History of excision of pilonidal cyst Social History household members: spouse Smoking Status: Former smoker Tobacco: How many years used: 55 second hand exposure: Yes alcohol intake: current alcohol intake frequency: holidays/special occasions only substance use type: does not use caffeine: Yes Type: coffee Number of servings: 3 what type of physical activity do you participate in: none frequency: does not exercise seatbelt use: always ROS ROS Narrative 12 or more systems reviewed and are negative except as per HPI: mainly complaints related to swelling and SOB Objective Data Objective Data Vital Signs: Vital Signs Last response 3 Temperature 36.7 C 08/21/24 16:00 Temperature Source Temporal 08/21/24 16:00 Pulse Rate 78 08/21/24 17:00 Respiratory Rate 20 H 08/21/24 17:00 Respiratory Effort Short of Breath 08/21/24 10:52 Respiratory Depth Shallow 08/21/24 10:52 Respiratory Pattern Normal 08/21/24 14:54 Blood Pressure 124/62 H 08/21/24 17:00 Blood Pressure Mean 82 08/21/24 17:00 Blood Pressure Source Monitor 08/21/24 17:00 Blood Pressure Position Semi-Fowlers 08/21/24 17:00 Blood Pressure Location Left Arm 08/21/24 17:00 Pulse Ox 94 08/21/24 17:00 Oxygen Delivery Method Nasal Cannula 08/21/24 17:00 Oxygen Flow Rate (L/min) 4 08/21/24 17:00 Fraction of Inspired Oxygen (FIO2) 40 08/21/24 12:00 I&O: I&O Last 24 Hours 3 08/20/24 08/21/24 08/21/24 23:59 11:59 23:59 Intake Total 0 / 158.33 158.33 / 158.33 Balance 0 / 158.33 158.33 / 158.33 I&O: Total Stay 3 08/21/24 10:25 thru 08/21/24 14:04 Intake Total 158.33 Balance 158.33 Current Meds Ordered / Administered: Current meds ordered / Administered 3 Generic Name Dose Route Start Last Admin Trade Name Freq PRN Reason Stop Dose Admin Acetaminophen 1,000 mg 08/21/24 14:00 08/21/24 15:10 Acetaminophen 500 Mg Tablet PO Not Given Q8 [facility] Albuterol/Ipratropium 3 ml 08/21/24 13:53 08/21/24 14:53 Ipratropium/Albuterol Sulfate 3 Ml Ampul.Neb INHALATION 3 ml Q4H.RT AJIT Administration Atorvastatin Calcium 40 mg 08/21/24 22:00 Atorvastatin Calcium 40 Mg Tablet PO QHS [facility] Azithromycin 500 mg 08/22/24 10:00 Azithromycin 250 Mg Tablet PO 08/23/24 10:01 Q24 [facility] Bumetanide 2 mg 08/21/24 14:00 08/21/24 15:09 Bumetanide 1 Mg/4 Ml Vial IV 2 mg Q8H AJIT Administration Carvedilol 3.125 mg 08/21/24 17:00 Carvedilol 3.125 Mg Tablet PO BIDCM [facility] Protocol Cholecalciferol 50 mcg 08/22/24 08:00 Cholecalciferol (Vit D3) 25 Mcg Tablet (1,000 Units) PO DAILYCM [facility] Enoxaparin Sodium 40 mg 08/21/24 13:53 08/21/24 15:08 Enoxaparin 40 Mg/0.4 Ml Syringe SC 40 mg Q24 AJIT Administration Escitalopram Oxalate 10 mg 08/22/24 10:00 Escitalopram Oxalate 10 Mg Tablet PO DAILY [facility] Ferrous Sulfate 325 mg 08/22/24 12:00 Ferrous Sulfate 325 Mg Tablet PO QODAY@1200 [facility] Finasteride 5 mg 08/22/24 10:00 Finasteride 5 Mg Tablet PO DAILY [facility] Glucagon 1 mg 08/21/24 13:53 Glucagon 1 Mg/Ml Syringe IM X1 PRN Hypoglycemia Protocol Dextrose 250 mls @ 0 mls/hr 08/21/24 13:53 Dextrose 10%-Water IV .Q0M PRN HYPOGLYCEMIA Protocol As Directed Sodium Chloride 250 mls @ 15 mls/hr 08/21/24 14:08 IV .[id number] PRN Saline Flush Sodium Chloride 250 mls @ 15 mls/hr 08/21/24 14:08 IV .[id number] PRN Additional IVPB Infusion Insulin Glargine 20 unit 08/21/24 17:00 Insulin Glargine-Yfgn 100 Unit/Ml Pen SC BIDCM [facility] Insulin Human Lispro 0 unit 08/21/24 16:00 Insulin Lispro 100 Unit/Ml Insuln.Pen SC ACHS [facility] Protocol Methylprednisolone Sodium Succinate 40 mg 08/21/24 22:00 Methylprednisolone Sod Succ 40 Mg/Ml Vial IV Q8 [facility] Mirtazapine 7.5 mg 08/21/24 22:00 Mirtazapine 15 Mg Tablet PO QHS [facility] Multivitamins 1 tablet 08/22/24 08:00 Multivitamins,Therapeutic Tablet PO DAILYCM [facility] Nitroglycerin 0.4 mg 08/21/24 13:53 Nitroglycerin (Inpatient Use) 0.4 Mg Tab.Subl SL Q5M PRN CARDIAC/CHEST PAIN Pantoprazole Sodium 40 mg 08/21/24 22:00 Pantoprazole Sodium 40 Mg Tablet PO BID [facility] Prochlorperazine Edisylate 5 mg 08/21/24 13:53 Prochlorperazine 10 Mg/2 Ml Vial IV Q4H PRN PRN Breakthrough Nausea/Vomiting Senna/Docusate Sodium 2 tablet 08/21/24 22:00 Senna/Docusate Sodium 1 Tablet PO BID [facility] Sodium Chloride 10 - 40 ml 08/21/24 14:08 0.9% Saline Lock 10 Ml Syringe IV UD PRN SALINE FLUSH Tamsulosin HCl 0.4 mg 08/21/24 22:00 Tamsulosin Hcl 0.4 Mg Capsule PO QHS [facility] Physical Exam Const alert, oriented x3 and no apparent distress General Appearance: cooperative, well developed and ill appearing HEENT normocephalic, head/scalp atraumatic and moist oral mucous membranes HEENT Narrative: Mallmapati 3, neck circumference 16.5in Throat: Negative for posterior oropharynx normal Eyes PERRL, EOMs intact bilaterally, conjunctivae normal and no scleral icterus Neck Neck Narrative: Coud not accurately asses JVD over camera 2/2 lighting and tehcnique Chest inspection of chest normal Resp normal respiratory effort and no use of accessory muscles Effort and Inspection: able to speak in complete sentences Auscultation: rales and diminished lung sounds Percussion: dullness Cardio regular rate and regular rhythm GI normal to inspection, nondistended, normoactive bowel sounds, soft to palpation and non-tender no CVA tenderness Skin no rashes or lesions noted Neuro oriented x3 and CN's II-XII intact bilaterally Psych cooperative and affect normal Lab / Micro Data Attestation: I reviewed the patient's lab results. Lab results narrative: ABG showing a chronic respiratory acidosis and acute respiratory and chronic metabolic alkalosis. 08/21/24 10:45 08/21/24 10:45 Labs: Laboratory Results - last 24 hr 08/21/24 10:45: WBC 10.3, RBC 2.83 L, Hgb 8.7 L, Hct 28.8 L, MCV 101.8 H, MCH 30.7, MCHC 30.2 L, RDW Std Deviation 68.8 H, RDW Coeff of Rafael 18.4 H, Plt Count 226, MPV 11.3, Immature Gran % (Auto) 1.100 H, Neut % (Auto) 71.0 H, Lymph % (Auto) 15.2 L, [place] % (Auto) 10.5 H, Eos % (Auto) 1.9, Baso % (Auto) 0.3, Absolute Neuts (auto) 7.3, Absolute Lymphs (auto) 1.57, Nucleated RBC % 0.4, Platelet Estimate A, Polychromasia 1+, Anisocytosis 1+, PT 14.1, INR 1.1, APTT 25.6, Sodium 145, Potassium 4.5, Chloride 105, Carbon Dioxide 29.3, Anion Gap 11, BUN 21 H, Creatinine 1.27 H, Estim Creat Clear Calc 62.12, Est GFR (MDRD) Non-Af 59 L, BUN/Creatinine Ratio 16.6, Glucose 150 H, Lactic Acid 1.3, Calcium 8.2, Total Bilirubin 0.49, AST 29, ALT 19, Alkaline Phosphatase 71, Troponin T High Sens 97 H*, [place] [address] H, Total Protein 6.2, Albumin 3.5, Globulin 2.7, Albumin/Globulin Ratio 1.3 08/21/24 11:28: Urine Color Cancelled, Urine Clarity Cancelled, Urine pH Cancelled, Ur Specific [place] Cancelled, U Specif Grav (Refrac) Cancelled, Urine Protein Cancelled, Urine Glucose (UA) Cancelled, Urine Ketones Cancelled, Urine Occult Blood Cancelled, Urine Nitrite Cancelled, Urine Bilirubin Cancelled, Urine Urobilinogen Cancelled, Ur Leukocyte Esterase Cancelled, Urine RBC Cancelled, Urine WBC Cancelled, Ur Squamous Epith Cells Cancelled, Ur Transition Epith Cell Cancelled, Ur Renal Epithelial Cell Cancelled, Calcium Oxalate Crystal Cancelled, Uric Acid Crystals Cancelled, Triple Phos Crystals Cancelled, Other Crystals Cancelled, Amorphous Sediment Cancelled, Urine Bacteria Cancelled, Hyaline Casts Cancelled, Fine Granular Casts Cancelled, Coarse Granular Casts Cancelled, Waxy Casts Cancelled, RBC Casts Cancelled, WBC Casts Cancelled, Urine Mucus Cancelled, Urine Trichomonas Cancelled, Urine Yeast Cancelled 08/21/24 11:59: Urine Color Yellow, Urine Clarity Cloudy, Urine pH 6.5, Ur Specific [place] 1.010, Urine Protein 30 H, Urine Glucose (UA) 1000 H, Urine Ketones Negative, Urine Occult Blood 10 H, Urine Nitrite Negative, Urine Bilirubin Negative, Urine Urobilinogen Normal, Ur Leukocyte Esterase 500 H, Urine RBC 0-5 SEEN, Urine WBC >100 SEEN, Ur Squamous Epith Cells 0-5 SEEN, Urine Bacteria 0 SEEN, Urine Mucus 0 SEEN 08/21/24 12:54: Magnesium 2.0, Troponin T Hi Sens 2 Hr 103 H* 08/21/24 15:15: Troponin T Hi Sens 4Hr 95 H* Micro: Microbiology 08/21/24 15:15 Mucosa - Nasopharyngeal SARS-CoV-2, Influenza & RSV (PCR) - Final ABG Data ABG results: ABG 08/21/24 12:15 Specimen Type ART Sample Site L Radial pH 7.45 Bicarbonate Actual 39.9 H Total CO2 42 Base Excess 16 H O2 Saturation 94 L O2 % 40.0 ABG pCO2 58.0 H ABG pO2 69 L Thompson Test Positive Respiration Rate 14 O2 Delivery Device BiPAP Vent Mode Not entered POC PEEP 9 Imaging Radiology Impression Chest X-Ray 08/21/24 11:02 IMPRESSION: Worsened moderate right pleural effusion. Trace left base effusion. Superimposed focal consolidation not excluded within the right lower lobe. [id number] pulmonary edema. Median sternotomy wires. Cardiac silhouette is unchanged. No pneumothorax. Reading Location: [facility] CXR reviewed personally: large R effusion Assessment and Plan . 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
[2024-08-21] MEDS: Insulin Glargine-YFGN 100 UNIT/ML Pen 20 UNIT SC (17:23)
[2024-08-21] MEDS: Senna/Docusate Sodium 1 Tablet 2 TABLET PO (21:21)
[2024-08-22] VITALS (19 sets, daily range): BP systolic 104–143; BP diastolic 51–74; PULSE 58–79; RESP 14–24; TEMP 36.1–36.6; O2SAT 92–100; BMI 30.5
[2024-08-22 04:16] LABS: Hematocrit 26.5 % (40-54); Hemoglobin 8.0 g/dL (13.0-16.5); Immature Granulocytes Count 0.060 X10^3/uL (0.0-0.0); Mean Corp Hgb Conc 30.2 g/dL (32-36); Mean Corpuscular Volume 98.9 fL (80-94); Mean Platelet Vol. 11.5 fl (6.2-12.0); NRBC Flagged by Analyzer 0.6 % (0-5); Platelet Count 212 K/mm3 (150-450); RBC Distribution Width CV 17.9 % (11.6-14.6); RBC Distribution Width SD 64.9 fl (35.1-43.9); Red Blood Count 2.68 M/mm3 (4.6-6.2); White Blood Count 4.8 K/mm3 (4.4-11.0)
[2024-08-22 05:06] LABS: Anion Gap 11 (5-15); BUN 25 mg/dL (4-19); BUN/Creat Ratio 18.1 RATIO (10-20); Calcium,Total 8.2 mg/dL (7.6-11.0); Carbon Dioxide 33.8 mmol/L (21.0-32.0); Chloride 99 mmol/L (98-108); Cholesterol 145 mg/dL (<=200); Estimated Creatinine Clearance 58.11 ml/min (50-250); Glucose 319 mg/dL (70-99); Low Density Lipoprotein Calc. 77 mg/dL; Potassium 3.9 mmol/L (3.3-5.1); Triglycerides 112 mg/dL; Very Low Density Lipoprotein 22 mg/dL (5-40); cholesterol:hdl ratio screen 3.17
[2024-08-22] MEDS: 0.9% Saline Lock 10 ML Syringe IV ×3 (06:04→21:37)
--- NOTE | 2024-08-22 07:55 | PCM.PN.HOSP ---
Reason for Visit Reason for Visit: Diagnoses Acute and chronic respiratory failure with hypercapnia (08/21/24) Objective Data Objective Data Vital Signs: Vital Signs Temp Pulse Resp BP Pulse Ox O2 Del Method O2 Flow Rate 97.0 F L 63 20 H 126/61 H 97 Nasal Cannula 4 08/22/24 06:00 08/22/24 07:25 08/22/24 07:25 08/22/24 06:00 08/22/24 07:25 08/22/24 07:25 08/22/24 07:25 FiO2 40 08/22/24 05:00 Oxygen Flow Rate (L/min) 4 Oxygen Delivery Method Nasal Cannula Weight: 219 lb 2.232 oz Body Mass Index (BMI) 30.5 Intake & Output: Intake and Output for Last 24 Hours 08/20/24 08/21/24 08/22/24 23:59 23:59 23:59 Intake Total 855.33 / 855.33 Output Total 2850 / 2850 1200 / 1200 Balance -1993.67 / -1993.67 -1200 / -1200 Lab / Micro Data 08/22/24 04:07 08/22/24 04:07 Labs: Laboratory Results - last 24 hr 08/21/24 10:45: WBC 10.3, RBC 2.83 L, Hgb 8.7 L, Hct 28.8 L, MCV 101.8 H, MCH 30.7, MCHC 30.2 L, RDW Std Deviation 68.8 H, RDW Coeff of Rafael 18.4 H, Plt Count 226, MPV 11.3, Immature Gran % (Auto) 1.100 H, Neut % (Auto) 71.0 H, Lymph % (Auto) 15.2 L, Burnett % (Auto) 10.5 H, Eos % (Auto) 1.9, Baso % (Auto) 0.3, Absolute Neuts (auto) 7.3, Absolute Lymphs (auto) 1.57, Nucleated RBC % 0.4, Platelet Estimate A, Polychromasia 1+, Anisocytosis 1+, PT 14.1, INR 1.1, APTT 25.6, Sodium 145, Potassium 4.5, Chloride 105, Carbon Dioxide 29.3, Anion Gap 11, BUN 21 H, Creatinine 1.27 H, Estim Creat Clear Calc 62.12, Est GFR (MDRD) Non-Af 59 L, BUN/Creatinine Ratio 16.6, Glucose 150 H, Lactic Acid 1.3, Calcium 8.2, Total Bilirubin 0.49, AST 29, ALT 19, Alkaline Phosphatase 71, Troponin T High Sens 97 H*, [place] [address] H, Total Protein 6.2, Albumin 3.5, Globulin 2.7, Albumin/Globulin Ratio 1.3 08/21/24 11:59: Urine Color Yellow, Urine Clarity Cloudy, Urine pH 6.5, Ur Specific Harlan 1.010, Urine Protein 30 H, Urine Glucose (UA) 1000 H, Urine Ketones Negative, Urine Occult Blood 10 H, Urine Nitrite Negative, Urine Bilirubin Negative, Urine Urobilinogen Normal, Ur Leukocyte Esterase 500 H, Urine RBC 0-5 SEEN, Urine WBC >100 SEEN, Ur Squamous Epith Cells 0-5 SEEN, Urine Bacteria 0 SEEN, Urine Mucus 0 SEEN 08/21/24 12:54: Magnesium 2.0, Troponin T Hi Sens 2 Hr 103 H* 08/21/24 15:15: Troponin T Hi Sens 4Hr 95 H* 08/21/24 17:15: POC Glucose 268 H 08/21/24 21:13: POC Glucose 234 H 08/22/24 04:07: WBC 4.8, RBC 2.68 L, Hgb 8.0 L, Hct 26.5 L, MCV 98.9 H, MCH 29.9, MCHC 30.2 L, RDW Std Deviation 64.9 H, RDW Coeff of Rafael 17.9 H, Plt Count 212, MPV 11.5, Immature Gran % (Auto) 1.200 H, Neut % (Auto) 80.4 H, Lymph % (Auto) 14.1 L, Burnett % (Auto) 4.1, Eos % (Auto) 0.0, Baso % (Auto) 0.2, Absolute Neuts (auto) 3.9, Absolute Lymphs (auto) 0.68 L, Nucleated RBC % 0.6, Sodium 144, Potassium 3.9, Chloride 99, Carbon Dioxide 33.8 H, Anion Gap 11, BUN 25 H, Creatinine 1.36 H, Estim Creat Clear Calc 58.11, Est GFR (MDRD) Non-Af 55 L, BUN/Creatinine Ratio 18.1, Glucose 319 H, Hemoglobin A1c 7.4 H, Calcium 8.2, Triglycerides 112, Cholesterol 145, LDL Cholesterol, Calc 77, VLDL Cholesterol 22, HDL Cholesterol 46, Cholesterol/HDL Ratio 3.17, TSH 0.337 08/22/24 06:43: POC Glucose 266 H Micro: Microbiology 08/21/24 15:15 Nasal Secretion MRSA (PCR) - Final Meth. resistant Staph. aureus 08/21/24 15:15 Mucosa - Nasopharyngeal SARS-CoV-2, Influenza & RSV (PCR) - Final ABG Data ABG results: ABG 08/21/24 12:15 Specimen Type ART Sample Site L Radial pH 7.45 Bicarbonate Actual 39.9 H Total CO2 42 Base Excess 16 H O2 Saturation 94 L O2 % 40.0 ABG pCO2 58.0 H ABG pO2 69 L Thompson Test Positive Respiration Rate 14 O2 Delivery Device BiPAP Vent Mode Not entered POC PEEP 9 Radiography Diagnostic Testing: Radiology Impression Chest X-Ray 08/21/24 11:02 IMPRESSION: Worsened moderate right pleural effusion. Trace left base effusion. Superimposed focal consolidation not excluded within the right lower lobe. [id number] pulmonary edema. Median sternotomy wires. Cardiac silhouette is unchanged. No pneumothorax. Reading Location: [facility] Physical Exam Narrative Seen and examined. Patient on his baseline 4 L of oxygen. Was evaluated by heart specialist yesterday and discussed with him. BiPAP was changed to CPAP. Physical exam General: Alert, Oriented x3, Cooperative. Obesity, grade 1 BMI 31.4 kg/m? HEENT: Atraumatic, PERRLA, EOMI, Normocephalic. Oral: On BiPAP Neck: Supple, Negative Carotid Bruits. JVD could not be evaluated because of being on BiPAP Chest wall/Lungs: Air entry severely diminished in both lung luu. Bilateral expiratory rhonchi. Cardiovascular: Regular rate and rhythm, Normal S1,S2, No M/G/R Abdomen: Bowel Sounds Present, Soft, Non Tender, Non-Distended : No dysuria. No renal angle tenderness. No suprapubic tenderness. Extremities: Bilateral 3+ thigh-high pitting edema, Capillary Refill Less than 3 Seconds Skin: No rashes, No breakdown Musculoskeletal: No Tenderness to Palpation of Joints or Extremities. ROM restricted at knees and hip joints Neurological: Cranial nerves II-XII grossly intact, DTR 2+/4. No acute focal neurological deficit. Psych/Mental Status: Normal Affect, Appropriate. Assessment & Plan Assessment/Plan (1) Acute and chronic respiratory failure with hypercapnia: PLAN: Plan This is a 73-year-old gentleman being admitted for extreme shortness of breath/labored breathing and hypoxia and ABG suggestive of acute on chronic combined respiratory failure 1. Acute on chronic combined hypoxic and hypercarbic respiratory failure due to CHF exacerbation and mild COPD exacerbation: ABG 7.45/58/69 on 40% FiO2, 15/9, RR 14/min. On ABG bicarb is 42 but usually it is about 30. BMP bicarb is 29.3 yesterday which I think is inaccurate. Therefore chronic mild CO2 retention. Continue BiPAP support. Head Of Ethics And Compliance consulted. 08/22: Discussed with the heart specialist Dr. Berg yesterday. consult reviewed. Usually, previous ABG shows PCO2 around 45-48 but this time it is elevated to 58 and bicarb around 13 but admission to 42. Impression was not to use BiPAP or AVAPS empirically because of his pH is compensated 7.45 with chronic CO2 retention, pCO2 58 therefore BiPAP/AVAPS can can cause respiratory alkalosis leading to Aryan Mcclellan respiration. He recommended simple CPAP pressure of 10 to augment LV transpleural contractility followed by outpatient medical pulse oximetry with a split-night study. Advised to discontinue steroid. MRSA nasal screen positive but possible colonization. Not having any signs and symptoms of pneumonia therefore no indication of treatment. 2. Acute on chronic HFrEF: proBNP is high 11,267, chest x-ray is reviewed and shows pulmonary congestion/central hilar congestion but no significant consolidation. Started on IV Bumex 2 mg every 8 hourly and titrate the dose as per urine output and hemodynamics. Heart failure core measures including intake and output, fluid restriction less than 1500 mL, daily weight monitoring, kidney and electrolytes monitoring. Previous echo on September 04, 2023 with EF 25%, mildly dilated LV, severe global hypokinesis, PASP 30 mmHg. 08/22: BUN/creatinine increased from 21/1.27-25/1.37. Patient had 2850 mL urine output yesterday and 1200 since midnight as documented. Therefore decrease her dose of Bumex 2 mg IV twice daily. Bicarb also increased from 29-34 although BMP bicarb is not reliable. ABG total bicarb was 40. Troponin fluctuated 97, 103 and 95. Due to increased cardiac demand. 2D echo tomorrow a.m. 3. Mild COPD exacerbation with history of chronic smoking: Patient quit smoking about 2 months ago in June 2024. 55 pack years of smoking. Patient is being managed on scheduled bronchodilator, IV Solu-Medrol, Mucinex, incentive spirometry and Pep. Zithromax 500 mg IV 1 dose and then changed to oral for next 2 doses, total 3 doses for COPD exacerbation. Flu, COVID and RSV PCR ordered. Sputum culture ordered. 08/22: Discontinue IV Solu-Medrol 4. DM type II: Glucose is 150 mg/dL. A1c tomorrow a.m. On Lantus 20 units subcutaneous twice daily continue with hypoglycemia protocol. Accu-Chek before meals and at bedtime with Humalog sliding scale coverage and hypoglycemia protocol. 08/22 A1c 7.4%. Glucose is high between 250-319. She has scheduled Humalog insulin added. But patient was on Solu-Medrol and which is discontinued now therefore glucose profile expected to improve. 5. CKD stage IIIa: BUN/creatinine appears on the baseline /1.27. Previous./Creatinine 33/1.27 on June 2024 and fluctuates between 1.41-1.65. 08/22: BUN/creatinine increased from 21/1.27-25/1.37. Patient had 2850 mL urine output yesterday and 1200 since midnight as documented. Therefore decrease her dose of Bumex 2 mg IV twice daily. 6. 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 Bilateral leg swelling. Started on Lovenox 40 mL subcu daily with holding parameters given the patient has history of GI bleed found to have AVM on endoscopy. 7. History of GI bleed due to AVM and chronic GERD: Last EGD in March 2024 as mentioned below. Continue PPI twice daily. Impression: - Normal esophagus. - No gross lesions in the entire stomach. - Three bleeding angiodysplastic lesions in the duodenum. Treated with a heater probe. Clip was placed. 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 8. Chronic CAD status post stent: Continue home medications 9. Chronic BPH with obstruction -Continue home medications Flomax and finasteride 10. Depression/anxiety -Continue home medications 11. DVT prophylaxis: As mentioned above. With high risk of DVT/PE and high risk of bleeding, Lovenox continued with PPI with holding parameters if bleeding. Living will/advanced directive/end of life care: Patient does have living will or advanced directive. His power of assistant city attorney for healthcare his but also with son and granddaughter involved in decision making. After discussion of benefits/risks procedures involved with full code, DNR CC arrest and DNR CC, the patient opted for DNR CC arrest with no intubation Patient doesn't want artificial life support including intubation, tube feed, ventilator and/chest compression, central venous catheter, vasopressor and DC shock if needed Total time spent in [id number] encounter in discussion of advanced directive 17 minutes. Microbiology Past 72 Hours 08/21/24 15:15 Nasal Secretion MRSA (PCR) - Final Meth. resistant Staph. aureus 08/21/24 15:15 Mucosa - Nasopharyngeal SARS-CoV-2, Influenza & RSV (PCR) - Final Laboratory Results 08/21/24 10:45: WBC 10.3, RBC 2.83 L, Hgb 8.7 L, Hct 28.8 L, MCV 101.8 H, MCH 30.7, MCHC 30.2 L, RDW Std Deviation 68.8 H, RDW Coeff of Rafael 18.4 H, Plt Count 226, MPV 11.3, Immature Gran % (Auto) 1.100 H, Neut % (Auto) 71.0 H, Lymph % (Auto) 15.2 L, Burnett % (Auto) 10.5 H, Eos % (Auto) 1.9, Baso % (Auto) 0.3, Absolute Neuts (auto) 7.3, Absolute Lymphs (auto) 1.57, Nucleated RBC % 0.4, Platelet Estimate A, Polychromasia 1+, Anisocytosis 1+, PT 14.1, INR 1.1, APTT 25.6, Sodium 145, Potassium 4.5, Chloride 105, Carbon Dioxide 29.3, Anion Gap 11, BUN 21 H, Creatinine 1.27 H, Estim Creat Clear Calc 62.12, Est GFR (MDRD) Non-Af 59 L, BUN/Creatinine Ratio 16.6, Glucose 150 H, Lactic Acid 1.3, Calcium 8.2, Total Bilirubin 0.49, AST 29, ALT 19, Alkaline Phosphatase 71, Troponin T High Sens 97 H*, [place] [address] H, Total Protein 6.2, Albumin 3.5, Globulin 2.7, Albumin/Globulin Ratio 1.3 08/21/24 11:28: Urine Color Cancelled, Urine Clarity Cancelled, Urine pH Cancelled, Ur Specific Harlan Cancelled, U Specif Grav (Refrac) Cancelled, Urine Protein Cancelled, Urine Glucose (UA) Cancelled, Urine Ketones Cancelled, Urine Occult Blood Cancelled, Urine Nitrite Cancelled, Urine Bilirubin Cancelled, Urine Urobilinogen Cancelled, Ur Leukocyte Esterase Cancelled, Urine RBC Cancelled, Urine WBC Cancelled, Ur Squamous Epith Cells Cancelled, Ur Transition Epith Cell Cancelled, Ur Renal Epithelial Cell Cancelled, Calcium Oxalate Crystal Cancelled, Uric Acid Crystals Cancelled, Triple Phos Crystals Cancelled, Other Crystals Cancelled, Amorphous Sediment Cancelled, Urine Bacteria Cancelled, Hyaline Casts Cancelled, Fine Granular Casts Cancelled, Coarse Granular Casts Cancelled, Waxy Casts Cancelled, RBC Casts Cancelled, WBC Casts Cancelled, Urine Mucus Cancelled, Urine Trichomonas Cancelled, Urine Yeast Cancelled 08/21/24 11:59: Urine Color Yellow, Urine Clarity Cloudy, Urine pH 6.5, Ur Specific Harlan 1.010, Urine Protein 30 H, Urine Glucose (UA) 1000 H, Urine Ketones Negative, Urine Occult Blood 10 H, Urine Nitrite Negative, Urine Bilirubin Negative, Urine Urobilinogen Normal, Ur Leukocyte Esterase 500 H, Urine RBC 0-5 SEEN, Urine WBC >100 SEEN, Ur Squamous Epith Cells 0-5 SEEN, Urine Bacteria 0 SEEN, Urine Mucus 0 SEEN 08/21/24 12:15: Specimen Type ART, Sample Site L Radial, pH 7.45, Bicarbonate Actual 39.9 H, Total CO2 42, Base Excess 16 H, O2 Saturation 94 L, O2 % 40.0, ABG pCO2 58.0 H, ABG pO2 69 L, Thompson Test Positive, Respiration Rate 14, O2 Delivery Device BiPAP, Vent Mode Not entered, POC PEEP 9 08/21/24 12:54: Magnesium 2.0, Troponin T Hi Sens 2 Hr 103 H* 08/21/24 15:15: Troponin T Hi Sens 4Hr 95 H* 08/21/24 17:15: POC Glucose 268 H 08/21/24 21:13: POC Glucose 234 H 08/22/24 04:07: WBC 4.8, RBC 2.68 L, Hgb 8.0 L, Hct 26.5 L, MCV 98.9 H, MCH 29.9, MCHC 30.2 L, RDW Std Deviation 64.9 H, RDW Coeff of Rafael 17.9 H, Plt Count 212, MPV 11.5, Immature Gran % (Auto) 1.200 H, Neut % (Auto) 80.4 H, Lymph % (Auto) 14.1 L, Burnett % (Auto) 4.1, Eos % (Auto) 0.0, Baso % (Auto) 0.2, Absolute Neuts (auto) 3.9, Absolute Lymphs (auto) 0.68 L, Nucleated RBC % 0.6, Sodium 144, Potassium 3.9, Chloride 99, Carbon Dioxide 33.8 H, Anion Gap 11, BUN 25 H, Creatinine 1.36 H, Estim Creat Clear Calc 58.11, Est GFR (MDRD) Non-Af 55 L, BUN/Creatinine Ratio 18.1, Glucose 319 H, Hemoglobin A1c 7.4 H, Calcium 8.2, Triglycerides 112, Cholesterol 145, LDL Cholesterol, Calc 77, VLDL Cholesterol 22, HDL Cholesterol 46, Cholesterol/HDL Ratio 3.17, TSH 0.337 08/22/24 06:43: POC Glucose 266 H Clinical Impression(s) from Imaging Studies Chest X-Ray 08/21/24 11:02 IMPRESSION: Worsened moderate right pleural effusion. Trace left base effusion. Superimposed focal consolidation not excluded within the right lower lobe. [id number] pulmonary edema. Median sternotomy wires. Cardiac silhouette is unchanged. No pneumothorax. Reading Location: [id number] Charges/Coding Visit Charges Inpatient E&M: 87690 Subs Hosp L3
[2024-08-22] MEDS: Cholecalciferol (VIT D3) 25 MCG TABLET (1,000 UNITS) 50 MCG PO (08:31)
[2024-08-22] MEDS: Insulin Glargine-YFGN 100 UNIT/ML Pen 20 UNIT SC ×2 (08:36→17:27)
--- NOTE | 2024-08-22 12:57 | NURSING ---
report called to u Cinthya burt
[2024-08-23] VITALS (10 sets, daily range): BP systolic 104–123; BP diastolic 41–60; PULSE 60–78; RESP 14–20; TEMP 36.6–37.2; O2SAT 94–97; BMI 30.4
--- NOTE | 2024-08-23 05:55 | ECHOLC_ITS ---
Reason For Study Reason For Study: CONGESTIVE HEART FAILURE Procedure This was a limited 2D transthoracic echocardiogram. Contrast injection was performed. The study was technically difficult. Exam performed portable in patient room. Left Ventricle Moderately dilated left ventricle. The estimated ejection fraction is 25-30 %. Right Ventricle Normal right ventricle. Atria The left atrium is mildly enlarged. Normal right atrium. Mitral Valve Mild (1+) mitral valve insufficiency. Tricuspid Valve Normal tricuspid valve. Aortic Valve Trisinus/trileaflet aortic valve. Pulmonic Valve The pulmonic valve is not well visualized. Great Vessels The aortic root is not well visualized. Pericardium/Pleural No pericardial effusion. Medication Diluted definity 2ml given slow IV push to enhance endocardial definition. MMode/2D Measurements & Calculations RVDd: 2.8 cm LAV(MOD-bp): 50.3 ml LVAd ap4: 46.4 cm2 LAV(MOD-bp) Indexed: 23.0 ml/m2 LVLd ap4: 10.0 cm LAV(MOD-sp2): 67.4 ml EDV(MOD-sp4): 176.2 ml LAV(MOD-sp4): 35.5 ml EDV(sp4-el): 183.7 ml LVAs ap4: 36.6 cm2 LVLs ap4: 9.1 cm ESV(MOD-sp4): 120.4 ml ESV(sp4-el): 125.3 ml EF(MOD-sp4): 31.6 % EF(sp4-el): 31.8 % LVAd ap2: 50.4 cm2 SV(MOD-sp4): 55.8 ml SV(MOD-sp2): 63.6 ml LVLd ap2: 10.2 cm SI(MOD-sp4): 25.5 ml/m2 SI(MOD-sp2): 29.1 ml/m2 EDV(MOD-sp2): 203.8 ml EDV(sp2-el): 212.6 ml LVAs ap2: 38.5 cm2 LVLs ap2: 8.9 cm ESV(MOD-sp2): 140.2 ml ESV(sp2-el): 141.4 ml EF(MOD-sp2): 31.2 % SV(sp4-el): 58.4 ml LA A4 area: 15.0 cm2 RA A4 area: 11.1 cm2 TAPSE: 2.3 cm Doppler Measurements & Calculations Lat Peak E' Oliver: 8.5 cm/sec Med Peak E' Oliver: 7.0 cm/sec ECHO/Echo Limited w/Contrast Interpretation Summary The estimated ejection fraction is 25-30 %. Severe LV systolic dysfunction No significant change from previous echocardiogram May/2024, EF was 25% Ordering Physician: Clive Sharp Referring Physician: Donna Will M.D. Performed By: Cathy Luna RDCS
[2024-08-23 06:19] LABS: LDH 195 U/L (87-241)
--- NOTE | 2024-08-23 08:04 | PN.HOSP_ITS ---
Reason for Visit Reason for Visit: Diagnoses Acute and chronic respiratory failure with hypercapnia (08/21/24) Objective Data Objective Data Vital Signs: Vital Signs Temp Pulse Resp BP Pulse Ox O2 Del Method O2 Flow Rate 97.9 F 66 20 H 110/57 L 96 Nasal Cannula 4 08/23/24 04:15 08/23/24 07:35 08/23/24 07:35 08/23/24 04:15 08/23/24 07:35 08/23/24 07:35 08/23/24 07:35 FiO2 35 08/23/24 01:45 Oxygen Flow Rate (L/min) 4 Oxygen Delivery Method Nasal Cannula Weight: 217 lb 13.067 oz Body Mass Index (BMI) 30.4 Intake & Output: Intake and Output for Last 24 Hours 08/21/24 08/22/24 08/23/24 23:59 23:59 23:59 Intake Total 855.33 / 855.33 1310 / 1310 Output Total 2850 / 2850 3150 / 3150 600 / 600 Balance - / - -1840 / -1840 -600 / -600 Lab / Micro Data 08/22/24 04:07 08/22/24 04:07 Labs: Laboratory Results - last 24 hr 08/22/24 11:36: POC Glucose 333 H 08/22/24 16:29: POC Glucose 175 H 08/22/24 21:34: POC Glucose 129 H 08/23/24 05:04: Lactate Dehydrogenase 195, Total Protein 5.8 L Micro: Microbiology 08/21/24 15:15 Nasal Secretion MRSA (PCR) - Final Meth. resistant Staph. aureus 08/21/24 16:15 Sputum, Expectorated/Coughed Gram Stain - Final 08/21/24 16:15 Sputum, Expectorated/Coughed Respiratory Culture - Preliminary GNR lactose mobile qa tester 08/21/24 15:15 Mucosa - Nasopharyngeal SARS-CoV-2, Influenza & RSV (PCR) - Final Physical Exam Narrative Seen and examined. Patient on his baseline 4 L of oxygen. Is scheduled for right-sided thoracocentesis today. Was evaluated by processor inspector and discussed with him. BiPAP was changed to CPAP. Physical exam General: Alert, Oriented x3, Cooperative. Obesity, grade 1 BMI 31.4 kg/m? HEENT: Atraumatic, PERRLA, EOMI, Normocephalic. Oral: Oral mucosa dry. Neck: Supple, Negative Carotid Bruits. No JVD Chest wall/Lungs: Air entry diminished in right lung, right moderate pleural effusion. No crepitations Cardiovascular: Sinus rhythm with PVCs, Normal S1,S2, No M/G/R Abdomen: Bowel Sounds Present, Soft, Non Tender, Non-Distended : No dysuria. No renal angle tenderness. No suprapubic tenderness. Extremities: Bilateral 2+ thigh-high pitting edema, Capillary Refill Less than 3 Seconds Skin: No rashes, No breakdown Musculoskeletal: No Tenderness to Palpation of Joints or Extremities. ROM restricted at knees and hip joints Neurological: Cranial nerves II-XII grossly intact, DTR 2+/4. No acute focal neurological deficit. Psych/Mental Status: Normal Affect, Appropriate. Assessment & Plan Assessment/Plan (1) Acute and chronic respiratory failure with hypercapnia: PLAN: Plan This is a 73-year-old gentleman being admitted for extreme shortness of breath/labored breathing and hypoxia and ABG suggestive of acute on chronic combined respiratory failure 1. Acute on chronic combined hypoxic and hypercarbic respiratory failure due to CHF exacerbation and mild COPD exacerbation: ABG 7.45/58/69 on 40% FiO2, 15/9, RR 14/min. On ABG bicarb is 42 but usually it is about 30. BMP bicarb is 29.3 yesterday which I think is inaccurate. Therefore chronic mild CO2 retention. Continue BiPAP support. Director Network Development consulted. 08/22: Discussed with the processor inspector Dr. Berg yesterday. consult reviewed. Usually, previous ABG shows PCO2 around 45-48 but this time it is elevated to 58 and bicarb around 13 but admission to 42. Impression was not to use BiPAP or AVAPS empirically because of his pH is compensated 7.45 with chronic CO2 retention, pCO2 58 therefore BiPAP/AVAPS can can cause respiratory alkalosis leading to Aryan Mcclellan respiration. He recommended simple CPAP pressure of 10 to augment LV transpleural contractility followed by outpatient medical pulse oximetry with a split-night study. Advised to discontinue steroid. MRSA nasal screen positive but possible colonization. Not having any systemic signs and symptoms of pneumonia like fever, tachycardia on baseline oxygen. No cough. 08/23: Yesterday sputum culture showed GNR. Today, sputum culture updated Enterobacter cloacae 2+, staff aureus 2+ and MRSA nasal screen is positive. Therefore antibiotic plan is changed. Ceftriaxone discontinued. Started on IV vancomycin and Levaquin to cover a of organism. ID consult for further recommendation. Plan for right-sided thoracocentesis today. Pleural fluid analytical labs ordered. 2. Acute on chronic HFrEF: proBNP is high 11,267, chest x-ray is reviewed and shows pulmonary congestion/central hilar congestion but no significant consolidation. Started on IV Bumex 2 mg every 8 hourly and titrate the dose as per urine output and hemodynamics. Heart failure core measures including intake and output, fluid restriction less than 1500 mL, daily weight monitoring, kidney and electrolytes monitoring. Previous echo on September 04, 2023 with EF 25%, mildly dilated LV, severe global hypokinesis, PASP 30 mmHg. 08/22: BUN/creatinine increased from 21/1.27-25/1.37. Patient had 2850 mL urine output yesterday and 1200 since midnight as documented. Therefore decrease her dose of Bumex 2 mg IV twice daily. Bicarb also increased from 29-34 although BMP bicarb is not reliable. ABG total bicarb was 40. Troponin fluctuated 97, 103 and 95. Due to increased cardiac demand. 2D echo tomorrow a.m. 08/23: 2D echo, limited ordered and pending 3. Mild COPD exacerbation with history of chronic smoking: Patient quit smoking about 2 months ago in June 2024. 55 pack years of smoking. Patient is being managed on scheduled bronchodilator, IV Solu-Medrol, Mucinex, incentive spirometry and Pep. Zithromax 500 mg IV 1 dose and then changed to oral for next 2 doses, total 3 doses for COPD exacerbation. Flu, COVID and RSV PCR ordered. Sputum culture ordered. 08/22: Discontinue IV Solu-Medrol 08/23: On scheduled bronchodilator. Continue incentive spirometry. 4. DM type II: Glucose is 150 mg/dL. A1c tomorrow a.m. On Lantus 20 units subcutaneous twice daily continue with hypoglycemia protocol. Accu-Chek before meals and at bedtime with Humalog sliding scale coverage and hypoglycemia protocol. 08/22 A1c 7.4%. Glucose is high between 250-319. She has scheduled Humalog insulin added. But patient was on Solu-Medrol and which is discontinued now therefore glucose profile expected to improve. 08/23: Glucose is better controlled. Continue Lantus and scheduled Humalog insulin 5. CKD stage IIIa: BUN/creatinine appears on the baseline 16/03.. Previous./Creatinine 33/1.27 on June 2024 and fluctuates between 1.41-1.65. 08/22: BUN/creatinine increased from 21/1.27-25/1.37. Patient had 2850 mL urine output yesterday and 1200 since midnight as documented. Therefore decrease her dose of Bumex 2 mg IV twice daily. 08/23: Labs ordered. 6. 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 Bilateral leg swelling. Started on Lovenox 40 mL subcu daily with holding parameters given the patient has history of GI bleed found to have AVM on endoscopy. 7. History of GI bleed due to AVM and chronic GERD: Last EGD in March 2024 as mentioned below. Continue PPI twice daily. Impression: - Normal esophagus. - No gross lesions in the entire stomach. - Three bleeding angiodysplastic lesions in the duodenum. Treated with a heater probe. Clip was placed. 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 8. Chronic CAD status post stent: Continue home medications 9. Chronic BPH with obstruction -Continue home medications Flomax and finasteride 10. Depression/anxiety -Continue home medications 11. DVT prophylaxis: As mentioned above. With high risk of DVT/PE and high risk of bleeding, Lovenox continued with PPI with holding parameters if bleeding. Living will/advanced directive/end of life care: Patient does have living will or advanced directive. His power of assistant district attorney for healthcare his but also with son and granddaughter involved in decision making. After discussion of benefits/risks procedures involved with full code, DNR CC arrest and DNR CC, the patient opted for DNR CC arrest with no intubation Patient doesn't want artificial life support including intubation, tube feed, ventilator and/chest compression, central venous catheter, vasopressor and DC shock if needed Total time spent in [id number]-[id number] encounter in discussion of advanced directive 17 minutes. Microbiology Past 72 Hours 08/21/24 12:15 Blood Culture (Wb) - Right Hand Blood Culture - Preliminary No growth in 48 hours. 08/21/24 10:45 Blood Culture (Wb) - Right Wrist Blood Culture - Preliminary No growth in 48 hours. 08/21/24 11:28 Urine, Clean Catch Urine Culture - Final Culture exhibits no growth. 08/21/24 16:15 Sputum, Expectorated/Coughed Gram Stain - Final 08/21/24 16:15 Sputum, Expectorated/Coughed Respiratory Culture - Preliminary Enterobacter cloacae complex Staphylococcus aureus 08/21/24 15:15 Nasal Secretion MRSA (PCR) - Final Meth. resistant Staph. aureus 08/21/24 15:15 Mucosa - Nasopharyngeal SARS-CoV-2, Influenza & RSV (PCR) - Final Laboratory Results 08/22/24 16:29: POC Glucose 175 H 08/22/24 21:34: POC Glucose 129 H 08/23/24 05:04: Lactate Dehydrogenase 195, Total Protein 5.8 L 08/23/24 08:04: POC Glucose 89 08/23/24 13:30: Magnesium 1.9 Clinical Impression(s) from Imaging Studies Chest X-Ray 08/21/24 11:02 IMPRESSION: Worsened moderate right pleural effusion. Trace left base effusion. Superimposed focal consolidation not excluded within the right lower lobe. [id number]-[id number] pulmonary edema. Median sternotomy wires. Cardiac silhouette is unchanged. No pneumothorax. Reading Location: [id number] Charges/Coding Visit Charges Inpatient E&M: 94672 Subs Hosp L2
[2024-08-23] MEDS: Cholecalciferol (VIT D3) 25 MCG TABLET (1,000 UNITS) 50 MCG PO (08:49)
[2024-08-23] MEDS: 0.9% Saline Lock 10 ML Syringe IV ×3 (09:02→15:20)
[2024-08-23] MEDS: 0.9% Normal Saline (250mL Bag) 250 ML 15 ML IV (11:03)
[2024-08-23 14:22] LABS: Magnesium 1.9 mg/dL (1.5-2.2)
--- NOTE | 2024-08-23 14:54 | CHAPLAIN ---
Type of Pastoral Visit ___ Initial Visit ___ Follow-up Visit ___ On-call Visit ___ General Patient Visit ___ Spiritual Assessment ___ Family Conference ___ Bereavement ___ Rapid Response ___ Code Blue ___ Other (describe below) Pastoral Care Referral From ___ Patient ___ Family ___ Nurse ___ Physician ___ Financial Institution Manager ___ Dispatch Manager ___ Other (describe below) Sacrament/Intervention ___ Active listening ___ Anointing ___ Buddhism ___ Bereavement ___ Communion ___ Lily exploration ___ ___ Life review ___ Prayer ___ Reconciliation ___ Sacrament of Sick ___ Supportive presence ___ Wedding ___ Other (describe below) Pastoral Comments patient is sound asleep in two visit attempts today; left a calling card
[2024-08-23 15:14] LABS: Hematocrit 28.0 % (40-54); Hemoglobin 8.4 g/dL (13.0-16.5); Immature Granulocytes Count 0.090 X10^3/uL (0.0-0.0); Mean Corp Hgb Conc 30.0 g/dL (32-36); Mean Corpuscular Volume 102.6 fL (80-94); Mean Platelet Vol. 11.4 fl (6.2-12.0); NRBC Flagged by Analyzer 0.4 % (0-5); POSITIVE MORPHOLOGY YES; Platelet Count 219 K/mm3 (150-450); RBC Distribution Width CV 18.0 % (11.6-14.6); RBC Distribution Width SD 68.2 fl (35.1-43.9); Red Blood Count 2.73 M/mm3 (4.6-6.2); White Blood Count 8.1 K/mm3 (4.4-11.0)
[2024-08-23 15:18] LABS: Differential Indicated SCAN CRITERIA MET
[2024-08-23] MEDS: levoFLOXacin IV 500 MG/100 ML BAG 100 MG IV (15:19)
[2024-08-23 15:48] LABS: Anion Gap 12 (5-15); BUN 33 mg/dL (4-19); BUN/Creat Ratio 23.5 RATIO (10-20); Calcium,Total 8.3 mg/dL (7.6-11.0); Carbon Dioxide 31.8 mmol/L (21.0-32.0); Chloride 101 mmol/L (98-108); Estimated Creatinine Clearance 55.07 ml/min (50-250); Glucose 223 mg/dL (70-99); Potassium 3.9 mmol/L (3.3-5.1)
[2024-08-23] MEDS: Vancomycin HCl 1,500 MG in 0.9% Normal Saline (500mL Bag) 500 ML 250 MG IV (16:23)
[2024-08-23] MEDS: Insulin Glargine-YFGN 100 UNIT/ML Pen 20 UNIT SC (16:33)
--- NOTE | 2024-08-23 17:01 | PCM.RX.CS ---
Consult Antibiotic Management Pharmacy has been consulted to manage selected antibiotic: Vancomycin Type of Intervention Type of Consult: New start Suspected Infection Suspected Infection: Pneumonia Prior Doses of Antibiotics Prior Doses of Antibiotics Received/Current Regimen: 08/23/24 @ 1623, Vancomycin 1500mg x1 given Labs Labs: Sodium 144 mmol/L (133-145) 08/23/24 14:52 Potassium 3.9 mmol/L (3.3-5.1) 08/23/24 14:52 Chloride 101 mmol/L (98-108) 08/23/24 14:52 Carbon Dioxide 31.8 mmol/L (21.0-32.0) 08/23/24 14:52 Anion Gap 12 (5-15) 08/23/24 14:52 BUN 33 mg/dL (4-19) H 08/23/24 14:52 Creatinine 1.41 mg/dL (0.70-1.20) H 08/23/24 14:52 Est GFR (MDRD) Non-Af 52 (>60) L 08/23/24 14:52 BUN/Creatinine Ratio 23.5 RATIO (10-20) H 08/23/24 14:52 Glucose 223 mg/dL (70-99) H 08/23/24 14:52 Microbiology Microbiology: Microbiology 08/21/24 12:15 Blood Culture (Wb) - Right Hand Blood Culture - Preliminary No growth in 48 hours. 08/21/24 10:45 Blood Culture (Wb) - Right Wrist Blood Culture - Preliminary No growth in 48 hours. 08/21/24 11:28 Urine, Clean Catch Urine Culture - Final Culture exhibits no growth. 08/21/24 16:15 Sputum, Expectorated/Coughed Gram Stain - Final 08/21/24 16:15 Sputum, Expectorated/Coughed Respiratory Culture - Preliminary Enterobacter cloacae complex Staphylococcus aureus 08/21/24 15:15 Nasal Secretion MRSA (PCR) - Final Meth. resistant Staph. aureus 08/21/24 15:15 Mucosa - Nasopharyngeal SARS-CoV-2, Influenza & RSV (PCR) - Final Dosing Weight Weight used for dosin kg Estimated Creatinine Clearance Estimated Creatinine Clearance: 55 Goal Trough Goal Trough: 15-20 mcg/mL Pharmacy Plan for Drug Dosing Pharmacy Plan for Drug Dosing: VAncomycin 1250mg every 12 hours starting 07/25/24 @ 0430 Pharmacy Service will continue to monitor and adjust dosing as required. Follow-Up Labs Follow-Up Labs: Trough: Vancomycin Date/Time Labs Ordered Labs to be done on [date and time ordered]: 08/25/24 @ [id number]
[2024-08-23 17:12] LABS: Differential Comment SCANNED
[2024-08-23 17:13] LABS: Anisocytosis 1+
[2024-08-24] VITALS (14 sets, daily range): BP systolic 100–137; BP diastolic 49–67; PULSE 62–76; RESP 16–20; TEMP 36.1–36.9; O2SAT 79–96; BMI 31.2
[2024-08-24] MEDS: Vancomycin HCl 1,250 MG in 0.9% Normal Saline (250mL Bag) 250 ML 167 MG IV (04:34)
[2024-08-24 06:21] LABS: Hematocrit 27.5 % (40-54); Hemoglobin 8.2 g/dL (13.0-16.5); Immature Granulocytes Count 0.090 X10^3/uL (0.0-0.0); Mean Corp Hgb Conc 29.8 g/dL (32-36); Mean Corpuscular Volume 101.1 fL (80-94); Mean Platelet Vol. 11.6 fl (6.2-12.0); NRBC Flagged by Analyzer 0.3 % (0-5); POSITIVE MORPHOLOGY YES; Platelet Count 218 K/mm3 (150-450); RBC Distribution Width CV 18.1 % (11.6-14.6); RBC Distribution Width SD 67.4 fl (35.1-43.9); Red Blood Count 2.72 M/mm3 (4.6-6.2); White Blood Count 9.1 K/mm3 (4.4-11.0)
[2024-08-24 06:24] LABS: Differential Indicated SCAN CRITERIA MET
[2024-08-24 06:54] LABS: Anion Gap 8 (5-15); BUN 33 mg/dL (4-19); BUN/Creat Ratio 23.3 RATIO (10-20); Calcium,Total 8.1 mg/dL (7.6-11.0); Carbon Dioxide 35.6 mmol/L (21.0-32.0); Chloride 102 mmol/L (98-108); Estimated Creatinine Clearance 55.82 ml/min (50-250); Glucose 55 mg/dL (70-99); Potassium 3.7 mmol/L (3.3-5.1)
[2024-08-24 07:52] LABS: Anisocytosis 1+
--- NOTE | 2024-08-24 08:30 | US_ITS ---
PROCEDURE: THORACENTESIS W US 08/24/2024 REASON FOR EXAM: PLEURAL EFFUSION TECHNIQUE: THORACENTESIS W US, right COMPARISON: None. FINDINGS: Following informed consent, and using standard sterile technique, a right thoracentesis was performed under ultrasound guidance, via a posterior approach. 2% lidocaine local anesthesia was followed by placement of a 5 Japanese catheter into the pleural fluid collection. Approximately 1.73 L clear light yellow fluid was successfully removed, a portion sent to laboratory for evaluation. No complication was encountered, the patient left the department in good condition without significant complaint. US/Thoracentesis W US IMPRESSION: Successful right thoracentesis. Laboratory results pending. Reading Location: [place] [id number]
[2024-08-24] MEDS: Lidocaine 2% (20 ml mdv) 20 ML Vial INFILT (08:39)
--- NOTE | 2024-08-24 08:45 | FLU_PTH ---
PATIENT: SAL ALONZO Jr. LOC: [facility] U#:[id number] AGE/SX: 73/M ROOM: [facility] RE08/21/[address]: Dr. Clive Sharp MD : 1950 BED: 1 DIS: 08/25/2024 SPEC #: [id number] RECD: 08/24/24 09:05 STATUS: MICHELLE REQ #: [id number] SURY: 08/24/24 08:[address]: Clive Sharp DEPT: CYTOLOGY RECD BY: Jayne Gold ENTERED: 08/24/24 10:06 SP TYPE: Fluid OTHR DR: MD Dr. Cisco Thorpe MD Dr. Bruce Arthur, MD Dr. Derek Brown, DO Dr. David P Myers, MD Dr. Edward Matheis, MD Dr. Gautam Baskaran, MD Dr. Yordanos Habtegebriel, MD Dr. Hemant Dand, MD Dr. Jose Ochoa, MD Dr. Justin Wong, MD Dr. Kimber Foust, MD Dr. Lamia Aljundi, MD Dr. Loren Kirchner, MD Dr. Marc Fiorentino, MD Dr. Marisa Magana, MD Dr. Pritam Ghosh, MD Dr. Pavan Irukulla, MD Dr. Saad Farooqi, MD Dr. Sukhdeep Dhesi, DO Dr. Sujoy Gill, MD Dr. Soleyah Groves, MD Dr. Timothy Fernstrom, MD Dr. Zhang Boyd Dr., MD Tissues: Pleural fluid, NOS Procedures: Special Stain Group II Surgery Specimen Level IV Cytospin Fluid HEADER OPERATION: Ultrasound guided thoracentesis PRE-OP DIAGNOSIS: Pleural effusion - right chest TISSUE SUBMITTED: A- Thoracentesis fluid for cytology DIAGNOSIS CYTOLOGY Pleural effusion: Reactive mesothelial cells, macrophages and mixed inflammation. CYTOLOGY STUDY Slides are reviewed. CYTOLOGY GROSS A. Received is 100 ml of yellow-cloudy fluid labeled with the patient's name and and designated per the requisition as Thoracentesis fluid. Submitted for cytology and cell block preparation. 08/24/2024 CPT: [id number]
[2024-08-24 09:21] LABS: Cytology, Body Fluid / CSF SEE PATHOLOGY REPORT
[2024-08-24] MEDS: Cholecalciferol (VIT D3) 25 MCG TABLET (1,000 UNITS) 50 MCG PO (09:25)
[2024-08-24 10:29] LABS: LDH 191 U/L (87-241)
[2024-08-24 10:32] LABS: Body Fluid Mononuclear WBC # 0.350 10^3/uL; Body Fluid Mononuclear WBC % 66.6 %; Body Fluid Polynuclear WBC # 0.176 10^3/uL; Body Fluid Polynuclear WBC % 33.4 %; White Blood Count/Body Fluid 0.526 10^3/uL
[2024-08-24] MEDS: levoFLOXacin IV 500 MG/100 ML BAG 100 MG IV (11:18)
[2024-08-24] MEDS: 0.9% Saline Lock 10 ML Syringe IV ×2 (11:19→17:21)
[2024-08-24 11:23] LABS: Auto B Fluid Analyzer BKGD Ct COUNTS W/IN LIMITS (W/IN LIMITS)
[2024-08-24 11:24] LABS: Appearance/Body Fluid SL CLDY; Color/Body Fluid YELLOW; Source- Body Fluid PLEURAL FLUID/LEFT
[2024-08-24 11:25] LABS: Other Cell Type/BF 4 %
--- NOTE | 2024-08-24 11:52 | PN.HOSP_ITS ---
Reason for Visit Reason for Visit: Diagnoses Acute and chronic respiratory failure with hypercapnia (08/21/24) Objective Data Objective Data Vital Signs: Vital Signs Temp Pulse Resp BP Pulse Ox O2 Del Method O2 Flow Rate 98.4 F 68 18 110/57 L 95 Nasal Cannula 4 08/24/24 09:18 08/24/24 11:33 08/24/24 11:33 08/24/24 09:18 08/24/24 09:18 08/24/24 09:18 08/24/24 09:18 FiO2 35 08/23/24 01:45 Oxygen Flow Rate (L/min) 4 Oxygen Delivery Method Nasal Cannula Weight: 224 lb 3.362 oz Body Mass Index (BMI) 31.2 Intake & Output: Intake and Output for Last 24 Hours 08/22/24 08/23/24 08/24/24 23:59 23:59 23:59 Intake Total 1310 / 1310 1530.75 / 1530.75 275 / 275 Output Total 3150 / 3150 2200 / 2200 2230 / 2230 Balance -1840 / -1840 -669.25 / -669.25 -1955 / -1955 Lab / Micro Data 08/24/24 04:52 08/24/24 04:52 Labs: Laboratory Results - last 24 hr 08/23/24 13:30: Magnesium 1.9 08/23/24 14:52: WBC 8.1, RBC 2.73 L, Hgb 8.4 L, Hct 28.0 L, MCV 102.6 H, MCH 30.8, MCHC 30.0 L, RDW Std Deviation 68.2 H, RDW Coeff of Rafael 18.0 H, Plt Count 219, MPV 11.4, Immature Gran % (Auto) 1.100 H, Neut % (Auto) 70.6 H, Lymph % (Auto) 16.5 L, [place] % (Auto) 10.1 H, Eos % (Auto) 1.6, Baso % (Auto) 0.1, Absolute Neuts (auto) 5.7, Absolute Lymphs (auto) 1.34, Nucleated RBC % 0.4, Differential Comment SCANNED, Anisocytosis 1+, Sodium 144, Potassium 3.9, Chloride 101, Carbon Dioxide 31.8, Anion Gap 12, BUN 33 H, Creatinine 1.41 H, Estim Creat Clear Calc 55.07, Est GFR (MDRD) Non-Af 52 L, BUN/Creatinine Ratio 23.5 H, Glucose 223 H, Calcium 8.3 08/24/24 04:52: WBC 9.1, RBC 2.72 L, Hgb 8.2 L, Hct 27.5 L, MCV 101.1 H, MCH 30.1, MCHC 29.8 L, RDW Std Deviation 67.4 H, RDW Coeff of Rafael 18.1 H, Plt Count 218, MPV 11.6, Immature Gran % (Auto) 1.000 H, Neut % (Auto) 68.6, Lymph % (Auto) 16.2 L, [place] % (Auto) 11.1 H, Eos % (Auto) 2.9, Baso % (Auto) 0.2, Absolute Neuts (auto) 6.2, Absolute Lymphs (auto) 1.47, Nucleated RBC % 0.3, Anisocytosis 1+, Ovalocytes 1+, Sodium 146 H, Potassium 3.7, Chloride 102, Carbon Dioxide 35.6 H, Anion Gap 8, BUN 33 H, Creatinine 1.41 H, Estim Creat Clear Calc 55.82, Est GFR (MDRD) Non-Af 52 L, BUN/Creatinine Ratio 23.3 H, Glucose 55 L, Calcium 8.1, Lactate Dehydrogenase 191, Total Protein 5.4 L 08/24/24 08:45: Fluid WBC 0.526, Fluid Tot Cell Count 0.580, Fld Polynuclear WBCs # 0.176, Fld Polynuclear WBCs % 33.4, Fluid Mononuclear WBCs 0.350, Fld Mononuclear WBCs % 66.6 Micro: Microbiology 08/21/24 16:15 Sputum, Expectorated/Coughed Gram Stain - Final 08/21/24 16:15 Sputum, Expectorated/Coughed Respiratory Culture - Preliminary Enterobacter cloacae complex Meth. resistant Staph. aureus 08/21/24 10:45 Blood Culture (Wb) - Right Wrist Blood Culture - Preliminary 08/21/24 12:15 Blood Culture (Wb) - Right Hand Blood Culture - Preliminary No growth in 48 hours. 08/21/24 11:28 Urine, Clean Catch Urine Culture - Final Culture exhibits no growth. 08/21/24 15:15 Nasal Secretion MRSA (PCR) - Final Meth. resistant Staph. aureus 08/21/24 15:15 Mucosa - Nasopharyngeal SARS-CoV-2, Influenza & RSV (PCR) - Final Radiography Diagnostic Testing: Radiology Impression Echocardiogram 08/23/24 05:55 Interpretation Summary The estimated ejection fraction is 25-30 %. Severe LV systolic dysfunction No significant change from previous echocardiogram May/2024, EF was 25% Ordering Physician: Clive Sharp Referring Physician: Donna Will M.D. Performed By: Cathy Luna RDCS Thoracentesis Ultrasound 08/24/24 08:30 IMPRESSION: Successful right thoracentesis. Laboratory results pending. Reading Location: [place] [id number] Physical Exam Narrative Seen and examined. Patient on his baseline 4 L of oxygen. Had right-sided thoracocentesis today and complains of some soreness. Discussed with the patient's son on the phone over the clinical course and he agreed for hospice. Physical exam General: Alert, Oriented x3, Cooperative. Obesity, grade 1 BMI 31.4 kg/m? HEENT: Atraumatic, PERRLA, EOMI, Normocephalic. Oral: Oral mucosa dry. Neck: Supple, Negative Carotid Bruits. No JVD Chest wall/Lungs: Air entry improved in right lung, after right thoracocentesis. Mild bibasilar coarse crepitations Cardiovascular: Sinus rhythm with PVCs, Normal S1,S2, No M/G/R Abdomen: Bowel Sounds Present, Soft, Non Tender, Non-Distended : No dysuria. No renal angle tenderness. No suprapubic tenderness. Extremities: Bilateral 1+ ankle pitting edema, Capillary Refill Less than 3 Seconds Skin: No rashes, No breakdown Musculoskeletal: No Tenderness to Palpation of Joints or Extremities. ROM restricted at knees and hip joints Neurological: Cranial nerves II-XII grossly intact, DTR 2+/4. No acute focal neurological deficit. Psych/Mental Status: Normal Affect, Appropriate. Assessment & Plan Assessment/Plan (1) Acute and chronic respiratory failure with hypercapnia: PLAN: Plan This is a 73-year-old gentleman being admitted for extreme shortness of breath/labored breathing and hypoxia and ABG suggestive of acute on chronic combined respiratory failure 1. Acute on chronic combined hypoxic and hypercarbic respiratory failure due to CHF exacerbation and mild COPD exacerbation: ABG 7.45/58/69 on 40% FiO2, 15/9, RR 14/min. On ABG bicarb is 42 but usually it is about 30. BMP bicarb is 29.3 yesterday which I think is inaccurate. Therefore chronic mild CO2 retention. Continue BiPAP support. Side Hemmer consulted. 08/22: Discussed with the [employer] plans intelligence officer chief Dr. Berg yesterday. consult reviewed. Usually, previous ABG shows PCO2 around 45-48 but this time it is elevated to 58 and bicarb around 13 but admission to 42. Impression was not to use BiPAP or AVAPS empirically because of his pH is compensated 7.45 with chronic CO2 retention, pCO2 58 therefore BiPAP/AVAPS can can cause respiratory alkalosis leading to Aryan Mcclellan respiration. He recommended simple CPAP pressure of 10 to augment LV transpleural contractility followed by outpatient medical pulse oximetry with a split-night study. Advised to discontinue steroid. MRSA nasal screen positive but possible colonization. Not having any systemic signs and symptoms of pneumonia like fever, tachycardia on baseline oxygen. No cough. 08/23: Yesterday sputum culture showed GNR. Today, sputum culture updated Enterobacter cloacae 2+, staff aureus 2+ and MRSA nasal screen is positive. Therefore antibiotic plan is changed. Ceftriaxone discontinued. Started on IV vancomycin and Levaquin to cover a of organism. ID consult for further recommendation. Plan for right-sided thoracocentesis today. Pleural fluid analytical labs ordered. 08/24: Continue your antibiotic. Serum protein 5.4, LDH 191, fluid protein, LDH and pH pending. Pleural fluid culture also sent. No leukocytosis. ID consulted 2. Acute on chronic HFrEF: proBNP is high 11,267, chest x-ray is reviewed and shows pulmonary congestion/central hilar congestion but no significant consolidation. Started on IV Bumex 2 mg every 8 hourly and titrate the dose as per urine output and hemodynamics. Heart failure core measures including intake and output, fluid restriction less than 1500 mL, daily weight monitoring, kidney and electrolytes monitoring. Previous echo on September 04, 2023 with EF 25%, mildly dilated LV, severe global hypokinesis, PASP 30 mmHg. 08/22: BUN/creatinine increased from 21/1.27-25/1.37. Patient had 2850 mL urine output yesterday and 1200 since midnight as documented. Therefore decrease her dose of Bumex 2 mg IV twice daily. Bicarb also increased from 29-34 although BMP bicarb is not reliable. ABG total bicarb was 40. Troponin fluctuated 97, 103 and 95. Due to increased cardiac demand. 2D echo tomorrow a.m. 08/23: 2D echo, limited ordered and pending 08/24: 2D echo shows EF 25 to 30% similar to previous echo of March 2024. Severe systolic dysfunction. Continue diuretic Bumex 2 mg IV twice daily. Creatinine 1.41 stable. 3. Mild COPD exacerbation with history of chronic smoking: Patient quit smoking about 2 months ago in June 2024. 55 pack years of smoking. Patient is being managed on scheduled bronchodilator, IV Solu-Medrol, Mucinex, incentive spirometry and Pep. Zithromax 500 mg IV 1 dose and then changed to oral for next 2 doses, total 3 doses for COPD exacerbation. Flu, COVID and RSV PCR ordered. Sputum culture ordered. 08/22: Discontinue IV Solu-Medrol 08/23: On scheduled bronchodilator. Continue incentive spirometry. 4. DM type II: Glucose is 150 mg/dL. A1c tomorrow a.m. On Lantus 20 units subcutaneous twice daily continue with hypoglycemia protocol. Accu-Chek before meals and at bedtime with Humalog sliding scale coverage and hypoglycemia protocol. 08/22 A1c 7.4%. Glucose is high between 250-319. She has scheduled Humalog insulin added. But patient was on Solu-Medrol and which is discontinued now therefore glucose profile expected to improve. 08/23: Glucose is better controlled. Continue Lantus and scheduled Humalog insulin 08/24: Patient has hypoglycemia, glucose 55. Holding scheduled Lantus and Humalog insulin. Monitor Gluc[place] checks. 5. CKD stage IIIa: BUN/creatinine appears on the baseline 16/03.27. Previous./Creatinine 33/1.27 on June 2024 and fluctuates between 1.41-1.65. 08/22: BUN/creatinine increased from /.27-25/1.37. Patient had 2850 mL urine output yesterday and 1200 since midnight as documented. Therefore decrease her dose of Bumex 2 mg IV twice daily. 08/24: Creatinine 1.41 stable. 6. 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 Bilateral leg swelling. Started on Lovenox 40 mL subcu daily with holding parameters given the patient has history of GI bleed found to have AVM on endoscopy. 7. History of GI bleed due to AVM and chronic GERD: Last EGD in March 2024 as mentioned below. Continue PPI twice daily. Impression: - Normal esophagus. - No gross lesions in the entire stomach. - Three bleeding angiodysplastic lesions in the duodenum. Treated with a heater probe. Clip was placed. 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 8. Chronic CAD status post stent: Continue home medications 9. Chronic BPH with obstruction -Continue home medications Flomax and finasteride 10. Depression/anxiety -Continue home medications 11. DVT prophylaxis: As mentioned above. With high risk of DVT/PE and high risk of bleeding, Lovenox continued with PPI with holding parameters if bleeding. Living will/advanced directive/end of life care: Patient does have living will or advanced directive. His power of clerical manager for healthcare his but also with son and granddaughter involved in decision making. After discussion of benefits/risks procedures involved with full code, DNR CC arrest and DNR CC, the patient opted for DNR CC arrest with no intubation Patient doesn't want artificial life support including intubation, tube feed, ventilator and/chest compression, central venous catheter, vasopressor and DC shock if needed Total time spent in [id number] encounter in discussion of advanced directive 17 minutes. 08/23/24 13:30: Magnesium 1.9 08/23/24 14:52: WBC 8.1, RBC 2.73 L, Hgb 8.4 L, Hct 28.0 L, MCV 102.6 H, MCH 30.8, MCHC 30.0 L, RDW Std Deviation 68.2 H, RDW Coeff of Rafael 18.0 H, Plt Count 219, MPV 11.4, Immature Gran % (Auto) 1.100 H, Neut % (Auto) 70.6 H, Lymph % (Auto) 16.5 L, [place] % (Auto) 10.1 H, Eos % (Auto) 1.6, Baso % (Auto) 0.1, Absolute Neuts (auto) 5.7, Absolute Lymphs (auto) 1.34, Nucleated RBC % 0.4, Differential Comment SCANNED, Anisocytosis 1+, Sodium 144, Potassium 3.9, Chloride 101, Carbon Dioxide 31.8, Anion Gap 12, BUN 33 H, Creatinine 1.41 H, Estim Creat Clear Calc 55.07, Est GFR (MDRD) Non-Af 52 L, BUN/Creatinine Ratio 23.5 H, Glucose 223 H, Calcium 8.3 08/24/24 04:52: WBC 9.1, RBC 2.72 L, Hgb 8.2 L, Hct 27.5 L, MCV 101.1 H, MCH 30.1, MCHC 29.8 L, RDW Std Deviation 67.4 H, RDW Coeff of Rafael 18.1 H, Plt Count 218, MPV 11.6, Immature Gran % (Auto) 1.000 H, Neut % (Auto) 68.6, Lymph % (Auto) 16.2 L, [place] % (Auto) 11.1 H, Eos % (Auto) 2.9, Baso % (Auto) 0.2, Absolute Neuts (auto) 6.2, Absolute Lymphs (auto) 1.47, Nucleated RBC % 0.3, Anisocytosis 1+, Ovalocytes 1+, Sodium 146 H, Potassium 3.7, Chloride 102, Carbon Dioxide 35.6 H, Anion Gap 8, BUN 33 H, Creatinine 1.41 H, Estim Creat Clear Calc 55.82, Est GFR (MDRD) Non-Af 52 L, BUN/Creatinine Ratio 23.3 H, Glucose 55 L, Calcium 8.1, Lactate Dehydrogenase 191, Total Protein 5.4 L 08/24/24 08:45: Fluid WBC 0.526, Fluid Tot Cell Count 0.580, Fld Polynuclear WBCs # 0.176, Fld Polynuclear WBCs % 33.4, Fluid Mononuclear WBCs 0.350, Fld Mononuclear WBCs % 66.6 Clinical Impression(s) from Imaging Studies Chest X-Ray 08/21/24 11:02 IMPRESSION: Worsened moderate right pleural effusion. Trace left base effusion. Superimposed focal consolidation not excluded within the right lower lobe. [id number] pulmonary edema. Median sternotomy wires. Cardiac silhouette is unchanged. No pneumothorax. Reading Location: [id number] Charges/Coding Visit Charges Inpatient E&M: 82546 Subs Hosp L2
[2024-08-24 12:01] LABS: Red Cell Count/Body Fluid 294 /mm3
--- NOTE | 2024-08-24 12:58 | CASEMGMT ---
Physician notified TYE that he spoke with patient's son Ray and they were interested in Hospice. SW called Ray and confirmed they would like to talk with hospice. Ray said patient is interested in the inpatient hospice unit. SW explained that SW will make a referral and someone will call him to set up a time to meet. SW called [facility] and made a referral. SW also faxed information. Kesha Mueller SYSTEMS TEST TECHNICIAN MARY ANN
--- NOTE | 2024-08-24 13:33 | CASEMGMT ---
SW received a call from Hospice and they will be meeting with patient and family today at 5:30p. SW notified physician and printmaker. SW will notify RN as well. eKsha REESE
[2024-08-24 13:43] LABS: Body Fluid QC Type(s) 0701 BF1Q
--- NOTE | 2024-08-24 14:19 | PCM.CONS.GEN ---
Assessment & Plan Assessment/Plan (1) Acute and chronic respiratory failure with hypercapnia: PLAN: Patient had a large right pleural effusion that could explain his worsening respiratory symptoms in the setting of advanced COPD. No fevers and a normal white count. Close to 2 L of pleural fluid was removed from the right pleural space this morning. In reviewing the pleural fluid analysis, no signs of infection. I suspect that the abnormal sputum culture with MRSA and Enterobacter are colonization. Clinically and radiographically I doubt the patient has bacterial pneumonia. Okay to discontinue vancomycin and levofloxacin. This will reduce the risk of C. difficile infection as well as reduce the risk of emergence of antimicrobial resistance HPI Consult Data Date of Consult: 08/24/24 HPI Narrative Reason for Consultation: Abnormal sputum culture with MRSA and Enterobacter isolated HPI Narrative: SAL ALONZO, is a 73 M who presents multiple comorbidities including ischemic heart disease, severe COPD on home O2 at least 4 L baseline who was admitted because of increasing shortness of breath and found to have an abnormal chest x-ray. In reviewing the chest x-ray showed a large right pleural effusion. This morning patient underwent therapeutic thoracentesis of the right pleural space with 1. 7 3 L of clear pleural fluid removed. Currently alert and responsive no documented fevers. Normal white count. Sputum culture grew out MRSA and Enterobacter species. Currently on vancomycin plus levofloxacin. Patient denies any pleuritic chest pain. No hemoptysis. No fevers at home. No gastrointestinal distress. [facility] Medical History MRSA (methicillin resistant staph aureus) culture positive Ischemic cardiomyopathy COVID-19 Lethargic COPD with acute exacerbation Elevated troponin I level LUIS (acute kidney injury) Hypoxemia Chronic kidney disease (CKD), stage III (moderate) Acute hypoxic on chronic hypercapnic respiratory failure FTT (failure to thrive) in adult Former smoker On home oxygen therapy Bleeding tendency Ulcer High cholesterol History of stress test HTN (hypertension) Tobacco abuse History of pulmonary embolus (PE) (04/30/21) Essential hypertension Type 2 diabetes mellitus DVT (deep venous thrombosis) (05/01/21) Rhinovirus Acute respiratory failure with hypoxia Physical debility COVID-19 in immunocompromised patient Nicotine dependence, cigarettes, uncomplicated Diabetes Arthritis Cancer COPD (chronic obstructive pulmonary disease) History of basal cell carcinoma Atherosclerosis of coronary artery of [place] heart without angina pectoris Pneumonia Non-Hodgkin lymphoma History of pilonidal cyst Allergic rhinitis 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 complications Gastritis Colon polyp Obesity Asthma Chronic bronchitis Positive colorectal cancer screening using Cologuard test RA (rheumatoid arthritis) Home Medications ?Medication ?Instructions ?Recorded ?Last Taken ?Type finasteride 5 mg tablet 5 mg PO DAILY prostate 08/14/22 07/07/24 History tamsulosin 0.4 mg capsule 0.4 mg PO QHS prostate 08/14/22 07/07/24 History multivitamin 1 tab PO DAILY vitamin 09/13/22 07/07/24 History atorvastatin 40 mg tablet 20 mg (1/2 x 40 mg) PO QHS 09/18/23 07/07/24 Rx cholesterol #90 tabs budesonide 1 mg/2 mL suspension 1 mg (2 mL) inhalation Q12H 09/19/23 07/07/24 Rx for nebulization wheezing/SOB #120 mL ipratropium 0.5 mg-albuterol 3 mg 3 ml inhalation Q4H PRN PRN SOB 09/19/23 07/07/24 Rx (2.5 mg base)/3 mL nebulization &/OR WHEEZING #270 mL soln escitalopram oxalate 10 mg tablet 10 mg PO DAILY mood 90 days #90 10/29/23 07/07/24 Rx tabs mirtazapine 15 mg tablet (Remeron) 7.5 mg (1/2 x 15 mg) PO QHS sleep 10/29/23 07/07/24 Rx #90 tabs insulin aspart U-100 100 unit/mL See Protocol subcut ACHS high 11/12/23 07/07/24 Rx (3 mL) subcutaneous pen blood glucose 1 month #15 mL needle (disp) 32 gauge 32 gauge x #100 ea 11/12/23 Unknown Rx 5/16 (Easy Touch Hypodermic Needle) pen needle, diabetic 32 gauge x #100 ea 12/03/23 Unknown Rx /32 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 sensor (FreeStyle #1 ea 12/24/23 Unknown Rx Basilio 3 Sensor device) 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,site safety representative,cont #1 ea 12/24/23 Unknown Rx (FreeStyle Basilio 3 [place]) furosemide 40 mg tablet (Lasix) 20 mg (1/2 x 40 mg) PO DAILY 03/08/24 07/07/24 Rx diuretic #60 tabs empagliflozin 10 mg tablet 10 mg PO QDAY diabetes 03/16/24 07/07/24 History (Jardiance) ferrous sulfate 325 mg (65 mg 325 mg PO QODAY Supplement 04/05/24 07/07/24 History iron) tablet (FeroSul) insulin glargine-yfgn 100 unit/mL 20 unit (0.2 mL) subcut BIDCM high 06/25/24 07/08/24 Rx (3 mL) subcutaneous pen blood glucose #15 mL cholecalciferol (vitamin D3) 50 50 mcg PO QDAY 06/28/24 07/07/24 History mcg (2,000 unit) capsule pantoprazole 40 mg tablet,delayed 40 mg PO BID 06/28/24 07/07/24 History release (Protonix) carvedilol 3.125 mg tablet 3.125 mg PO BID BP #60 tabs 07/26/24 Unknown Rx Allergy/AdvReac Type Severity Reaction Status Date / Time No Known Allergies Allergy Verified 08/21/24 10:26 Family History Father Arthritis Bleeding disorder Hypertension Kidney disease Cancer Skin Anemia blood clots Emphysema lung Mother Colon cancer Cancer Lung Cancer Diabetes Brother Thyroid disorder Surgical History History of embolic filter insertion History of heart artery stent Status post cardiac surgery H/O cardiac catheterization Presence of IVC filter (04/2021) History of coronary artery stent placement (10/22/13) History of thymectomy Hx of lymph node excision History of excision of pilonidal cyst Social History household members: spouse Smoking Status: Former smoker Tobacco: How many years used: 55 second hand exposure: Yes alcohol intake: current alcohol intake frequency: holidays/special occasions only substance use type: does not use caffeine: Yes Type: coffee Number of servings: 3 what type of physical activity do you participate in: none frequency: does not exercise seatbelt use: always ROS ROS Narrative As stated in history of present illness others negative Physical Exam Narrative Alert responsive does not appear toxic lungs with some coarse breath sounds heart exam S1-S2 abdomen soft nontender. Lab / Micro Data 08/24/24 04:52 08/24/24 04:52 Labs: Laboratory Results - last 24 hr 08/23/24 13:30: Magnesium 1.9 08/23/24 14:52: WBC 8.1, RBC 2.73 L, Hgb 8.4 L, Hct 28.0 L, MCV 102.6 H, MCH 30.8, MCHC 30.0 L, RDW Std Deviation 68.2 H, RDW Coeff of Rafael 18.0 H, Plt Count 219, MPV 11.4, Immature Gran % (Auto) 1.100 H, Neut % (Auto) 70.6 H, Lymph % (Auto) 16.5 L, Miller % (Auto) 10.1 H, Eos % (Auto) 1.6, Baso % (Auto) 0.1, Absolute Neuts (auto) 5.7, Absolute Lymphs (auto) 1.34, Nucleated RBC % 0.4, Differential Comment SCANNED, Anisocytosis 1+, Sodium 144, Potassium 3.9, Chloride 101, Carbon Dioxide 31.8, Anion Gap 12, BUN 33 H, Creatinine 1.41 H, Estim Creat Clear Calc 55.07, Est GFR (MDRD) Non-Af 52 L, BUN/Creatinine Ratio 23.5 H, Glucose 223 H, Calcium 8.3 08/24/24 04:52: WBC 9.1, RBC 2.72 L, Hgb 8.2 L, Hct 27.5 L, MCV 101.1 H, MCH 30.1, MCHC 29.8 L, RDW Std Deviation 67.4 H, RDW Coeff of Rafael 18.1 H, Plt Count 218, MPV 11.6, Immature Gran % (Auto) 1.000 H, Neut % (Auto) 68.6, Lymph % (Auto) 16.2 L, Miller % (Auto) 11.1 H, Eos % (Auto) 2.9, Baso % (Auto) 0.2, Absolute Neuts (auto) 6.2, Absolute Lymphs (auto) 1.47, Nucleated RBC % 0.3, Anisocytosis 1+, Ovalocytes 1+, Sodium 146 H, Potassium 3.7, Chloride 102, Carbon Dioxide 35.6 H, Anion Gap 8, BUN 33 H, Creatinine 1.41 H, Estim Creat Clear Calc 55.82, Est GFR (MDRD) Non-Af 52 L, BUN/Creatinine Ratio 23.3 H, Glucose 55 L, Calcium 8.1, Lactate Dehydrogenase 191, Total Protein 5.4 L 08/24/24 08:45: Fluid Source PLEURAL FLUID/LEFT, Fluid Color YELLOW, Fluid Appearance SL CLDY, Fluid WBC 0.526, Fluid RBC 294, Fluid Tot Cell Count 0.580, Fld Polynuclear WBCs # 0.176, Fld Polynuclear WBCs % 33.4, Fluid Mononuclear WBCs 0.350, Fld Mononuclear WBCs % 66.6, Fluid Neutrophils 47, Fluid Lymphocytes 31, Fluid Monocytes 7, Fluid Macrophages 10, Fld Mesothelial Cells 1, Fluid Other Cells 4, Fl Pathologist Comment May follow, Fluid Comment 2 SEE COMMENT Micro: Microbiology 08/21/24 16:15 Sputum, Expectorated/Coughed Gram Stain - Final 08/21/24 16:15 Sputum, Expectorated/Coughed Respiratory Culture - Preliminary Enterobacter cloacae complex Meth. resistant Staph. aureus 08/21/24 10:45 Blood Culture (Wb) - Right Wrist Blood Culture - Preliminary 08/21/24 12:15 Blood Culture (Wb) - Right Hand Blood Culture - Preliminary No growth in 48 hours. 08/21/24 11:28 Urine, Clean Catch Urine Culture - Final Culture exhibits no growth. Imaging Radiology Impression Echocardiogram 08/23/24 05:55 Interpretation Summary The estimated ejection fraction is 25-30 %. Severe LV systolic dysfunction No significant change from previous echocardiogram May/2024, EF was 25% Ordering Physician: Clive Sharp Referring Physician: Donna Will M.D. Performed By: Cathy Luna RDCS Thoracentesis Ultrasound 08/24/24 08:30 IMPRESSION: Successful right thoracentesis. Laboratory results pending. Reading Location: [facility]
[2024-08-24 15:09] LABS: Pathologist Comment/Body Fluid Reviewed
[2024-08-25] VITALS (11 sets, daily range): BP systolic 103–122; BP diastolic 45–83; PULSE 66–74; RESP 18–20; TEMP 36.6–36.8; O2SAT 89–97; BMI 30.8
[2024-08-25 06:51] LABS: Hematocrit 28.8 % (40-54); Hemoglobin 9.0 g/dL (13.0-16.5); Immature Granulocytes Count 0.150 X10^3/uL (0.0-0.0); Mean Corp Hgb Conc 31.3 g/dL (32-36); Mean Corpuscular Volume 99.7 fL (80-94); Mean Platelet Vol. 11.1 fl (6.2-12.0); NRBC Flagged by Analyzer 0.2 % (0-5); POSITIVE MORPHOLOGY YES; Platelet Count 214 K/mm3 (150-450); RBC Distribution Width CV 17.8 % (11.6-14.6); RBC Distribution Width SD 65.8 fl (35.1-43.9); Red Blood Count 2.89 M/mm3 (4.6-6.2); White Blood Count 9.3 K/mm3 (4.4-11.0)
[2024-08-25 07:13] LABS: Differential Indicated SCAN CRITERIA MET
[2024-08-25 07:52] LABS: Anion Gap 9 (5-15); BUN 33 mg/dL (4-19); BUN/Creat Ratio 20.6 RATIO (10-20); Calcium,Total 8.0 mg/dL (7.6-11.0); Carbon Dioxide 35.3 mmol/L (21.0-32.0); Chloride 99 mmol/L (98-108); Estimated Creatinine Clearance 48.57 ml/min (50-250); Glucose 91 mg/dL (70-99); Potassium 3.7 mmol/L (3.3-5.1)
[2024-08-25] MEDS: Cholecalciferol (VIT D3) 25 MCG TABLET (1,000 UNITS) 50 MCG PO (08:48)
[2024-08-25 08:54] LABS: Differential Comment SCANNED
[2024-08-25] MEDS: 0.9% Saline Lock 10 ML Syringe IV (09:01)
[2024-08-25 10:08] LABS: pH, Body Fluid 11254 7.6 (Not Estab.)
--- NOTE | 2024-08-25 11:08 | PCM.DC ---
Discharge Instructions Diet Discharge Diet: 8 Cup Fluid Restriction and 2000 mg Sodium Diet DC O2, CPAP, BIPAP needs Home O2 Discharge instructions: Yes Type of respiratory needs?: Oxygen Oxygen frequency: Continuous Continuous oxygen liters per minute: 6 Dressing / Incision Discharge Activity: Return to Normal Activity Weight Bearing Status: Weight bearing as tolerated Dressing / Incision Call your doctor if you observe: Fever of 101 or Higher, Coldness, Increased Pain, Numbness or Tingling, Change in Color, Inability to urinate, Inability to have a bowel movement, Shortness of breath, Dizziness, Fainting spells, Swelling in the ankles, Chest pain, Prolonged hiccupping, Increased palpitations (irregular heartbeat) and Calf discomfort Follow Up Care When: IN 2 WEEKS Test Results: Test results from this visit will be discussed in further detail at your follow-up appointment, if applicable. Discharge Plan Admission Admit Date/Time: 08/21/24 12:12 Primary Reason for Your Visit: Heart failure exacerbation, pulmonary edema Attending Provider: Clive Sharp Primary Care Provider: Donna Will Consulting Providers: Isaias Granados; Cisco Cortés; Alexi Roblero; Anthony Singleton; Jordan Alonzo; Meet Mckeon; Carlito Cárdenas; Claudine Andrade; Marvin Coats; Dimas Alvarenga; Kashif Berg; Elizabeth Wilson; Aric Leon; Ashanti Dugan; Mitch Pinzon; Rajeev Dalton; Roberto Escalante; Nikolai Keller; Leyda Fischer; Yolie Zapata; Dao Avila; Madi Tavarez; Zhang Concepcion; Kee York; Jordan Davis; Adriana Goel; Farida Todd; Linda Huizar; Katelynn De Jesus NP; Ashleigh Mcconnell Discharge Orders/Prescriptions Prescriptions: New atorvastatin 40 mg Tablet 40 mg PO QHS 30 Days Qty: 30 2RF sennosides-docusate sodium [Stimulant Laxative Plus] 8.6-50 mg Tablet 2 tab PO BID PRN (Reason: Constipation) Qty: 0 0RF bumetanide 1 mg tablet 1 mg PO BID 30 Days Qty: 60 1RF spironolactone 25 mg tablet 25 mg PO DAILY 30 Days Qty: 30 0RF Rx Instructions: Hold for serum potassium more than 5.0 Continued multivitamin Tablet 1 tab PO DAILY tamsulosin 0.4 mg capsule 0.4 mg PO QHS finasteride 5 mg tablet 5 mg PO DAILY ipratropium-albuterol 0.5 mg-3 mg(2.5 mg base)/3 mL solution for nebulization 3 ml inhalation Q4H PRN PRN (Reason: SOB &/OR WHEEZING) Qty: 270 11RF budesonide 1 mg/2 mL suspension for nebulization 1 mg inhalation Q12H Qty: 120 11RF (DME) pen needle, diabetic 32 gauge x 5/32 needle See Rx Instructions .ROUTE .MEDSUPPLY Qty: 100 5RF Rx Instructions: As directed Jardiance 10 mg tablet 10 mg PO QDAY ferrous sulfate [FeroSul] 325 mg (65 mg iron) Tablet 325 mg PO QODAY (DME) Easy Touch Hypodermic Needle 32 gauge x 5/16 needle See Rx Instructions .Route Qty: 100 0RF Rx Instructions: As directed insulin aspart U-100 100 unit/mL (3 mL) insulin pen See Protocol subcut ACHS 30 Days Qty: 15 0RF Protocol: 3. Sliding Scale Insulin Med Dosing Condition: 150-189 mg/dl = 1 unit Condition: 190-229 mg/dl = 2 units Condition: 230-269 mg/dl = 3 units Condition: 270-309 mg/dl = 4 units Condition: 310-349 mg/dl = 5 units Condition: 350-399 mg/dl = 6 units Condition: 400-449 mg/dl = 7 units Condition: Greater than 449 call physician Protocol Text: Suggested for: - Patients on Total Daily Insulin Dose of 37-55 units - Obese, infected, or steroid patients MEDIUM DOSING ALGORITHIM escitalopram oxalate 10 mg tablet 10 mg PO DAILY 90 Days Qty: 90 3RF mirtazapine [Remeron] 15 mg tablet 7.5 mg PO QHS Qty: 90 3RF (DME) FreeStyle Basilio 3 Sensor Device See Rx Instructions .Route Qty: 1 5RF Rx Instructions: As directed (DME) FreeStyle Basilio 3 [place] Misc See Rx Instructions .Route Qty: 1 0RF Rx Instructions: As directed cholecalciferol (vitamin D3) 50 mcg (2,000 unit) capsule 50 mcg PO QDAY Changed carvedilol 3.125 mg tablet 6.25 mg PO BID Qty: 60 11RF Rx Instructions: must administer with a meal/food pantoprazole [Protonix] 40 mg tablet,delayed release (DR/EC) 40 mg PO DAILY 30 Days Qty: 0 0RF Held insulin glargine-yfgn 100 unit/mL (3 mL) insulin pen 20 unit subcut BIDCM Qty: 15 1RF Hold Instructions: Hold scheduled insulin. Discontinued atorvastatin 40 mg tablet 20 mg PO QHS Qty: 90 3RF furosemide [Lasix] 40 mg tablet 20 mg PO DAILY Qty: 60 1RF Referrals / Follow Up: Donna Will MD [Primary Care Provider] - Gris Naik, DOWELING MACHINE OPERATOR-C [Med Staff - Adv Practice Prof] - Within 2 Weeks (Bilateral pleural effusion, COPD.) Elizabeth Velazquez, PA [Med Staff - Adv Practice Prof] - Within 2 Weeks (For heart failure, pulmonary edema) Disposition Disposition (needs filled in before D/C Order can be placed): Home Health Service
--- NOTE | 2024-08-25 12:36 | RAD_ITS ---
PROCEDURE: CHEST 1 VIEW (PORTABLE) 08/25/2024 REASON FOR EXAM: SOB, HYPOXIA, THORACOCENTESIS ON 08/24 TECHNIQUE: Frontal view of the chest. COMPARISON: AP upright and lateral chest of 08/21/2024. RAD/Chest 1 View (Portable) IMPRESSION: No evidence of pulmonary edema. Bibasilar atelectasis is seen, somewhat more conspicuous than on the prior exam ination, particularly in the left lung base; cannot exclude the presence of pneumonitis at either lung base. Pleural effusions, [id number], are noted. No pneumothorax is seen. The cardiomediastinal silhouette is stable, without evidence of cardiomegaly. Reading Location: [place] [id number]
--- NOTE | 2024-08-25 15:03 | PCM.DC.SUM ---
Providers Date of Admission: 08/21/24 Date of Discharge: 08/25/24 Primary Care Physician: Dr. Donna Will MD Consultations 08/21/24 12:42 Consult: Senior Financial Analyst / Pulmonary Medicine Routine Consulting Provider: Intensivists/Pulmonary Med Reason for Consult: ACUTE on chr combined resp failure, HF and COPD exa EMERGENT Consult: No MD Notified: Yes Date Notified: 08/21/24 Time Notified: 12:42 Method of Notification: Answering Service Method of Consult:: Telemedicine 08/23/24 14:20 Consult: Infectious Disease Routine Consulting Provider: Kee York Reason for Consult: sputum cx Enterobacter and MRSA? EMERGENT Consult: No MD Notified: Yes Date Notified: 08/23/24 Time Notified: 14:20 Method of Notification: Text 08/24/24 13:03 Consult: Hospice / Palliative Care Routine Consulting Provider: [facility] Reason for Consult: Recurrent pulmonary infection, COPD exacerbation, respfailure and HF exa EMERGENT Consult: No MD Notified: Yes Date Notified: 08/24/24 Time Notified: 13:03 Method of Notification: per social insurance administrator Reason For Visit: ACUTE ON CHR HYPOXIC FAILURE Diagnosis Discharge Diagnosis (1) Acute and chronic respiratory failure with hypercapnia: Status: Chronic Code(s): J96.22 - Acute and chronic respiratory failure with hypercapnia Plan This is a 73-year-old gentleman being admitted for extreme shortness of breath/labored breathing and hypoxia and ABG suggestive of acute on chronic combined respiratory failure 1. Acute on chronic combined hypoxic and hypercarbic respiratory failure due to CHF exacerbation and mild COPD exacerbation: ABG 7.45/58/69 on 40% FiO2, 15/9, RR 14/min. On ABG bicarb is 42 but usually it is about 30. BMP bicarb is 29.3 yesterday which I think is inaccurate. Therefore chronic mild CO2 retention. Continue BiPAP support. Senior Financial Analyst consulted. 08/22: Discussed with the envelope folding machine adjuster Dr. Berg yesterday. consult reviewed. Usually, previous ABG shows PCO2 around 45-48 but this time it is elevated to 58 and bicarb around 13 but admission to 42. Impression was not to use BiPAP or AVAPS empirically because of his pH is compensated 7.45 with chronic CO2 retention, pCO2 58 therefore BiPAP/AVAPS can can cause respiratory alkalosis leading to Aryan Mcclellan respiration. He recommended simple CPAP pressure of 10 to augment LV transpleural contractility followed by outpatient medical pulse oximetry with a split-night study. Advised to discontinue steroid. MRSA nasal screen positive but possible colonization. Not having any systemic signs and symptoms of pneumonia like fever, tachycardia on baseline oxygen. No cough. 08/23: Yesterday sputum culture showed GNR. Today, sputum culture updated Enterobacter cloacae 2+, staff aureus 2+ and MRSA nasal screen is positive. Therefore antibiotic plan is changed. Ceftriaxone discontinued. Started on IV vancomycin and Levaquin to cover a of organism. ID consult for further recommendation. Plan for right-sided thoracocentesis today. Pleural fluid analytical labs ordered. 08/24: Continue antibiotic. Serum protein 5.4, LDH 191, fluid protein, LDH and pH pending. Pleural fluid culture also sent. No leukocytosis. ID consulted 08/25: Fluid total protein and LDH no ordered not done. But seems more transudate. Total polynuclear 33.4%, mononuclear 66.6%. Neutrophil 47, lymphocyte 31, MagnaPhos 10. pH 7.6. Total WBC 526 cells. Patient had ID consult yesterday and thinks MRSA and Enterobacter cloacae are colonization not pathogenic therefore antibiotic discontinued to avoid C. difficile and antibiotic resistance. 2. Acute on chronic HFrEF: proBNP is high 11,267, chest x-ray is reviewed and shows pulmonary congestion/central hilar congestion but no significant consolidation. Started on IV Bumex 2 mg every 8 hourly and titrate the dose as per urine output and hemodynamics. Heart failure core measures including intake and output, fluid restriction less than 1500 mL, daily weight monitoring, kidney and electrolytes monitoring. Previous echo on September 04, 2023 with EF 25%, mildly dilated LV, severe global hypokinesis, PASP 30 mmHg. 08/22: BUN/creatinine increased from 21/1.27-25/1.37. Patient had 2850 mL urine output yesterday and 1200 since midnight as documented. Therefore decrease her dose of Bumex 2 mg IV twice daily. Bicarb also increased from 29-34 although BMP bicarb is not reliable. ABG total bicarb was 40. Troponin fluctuated 97, 103 and 95. Due to increased cardiac demand. 2D echo tomorrow a.m. 08/23: 2D echo, limited ordered and pending 08/24: 2D echo shows EF 25 to 30% similar to previous echo of March 2024. Severe systolic dysfunction. Continue diuretic Bumex 2 mg IV twice daily. Creatinine 1.41 stable. 08/25: Patient Bumex dose decreased to 1 mg p.o. twice daily. Spironolactone 25 mg daily. Advised follow-up in cardiology office Elizabeth Velazquez. Carvedilol dose increased to 6.25 mg twice daily. Repeat chest x-ray done today with shortness of breath on exertion is negative for pneumothorax. No evidence of pulmonary edema. Bilateral atelectasis and pleural effusion right more than left but improved compared to previous x-ray. This was communicated to the patient's son Ray today 3. Mild COPD exacerbation with history of chronic smoking: Patient quit smoking about 2 months ago in June 2024. 55 pack years of smoking. Patient is being managed on scheduled bronchodilator, IV Solu-Medrol, Mucinex, incentive spirometry and Pep. Zithromax 500 mg IV 1 dose and then changed to oral for next 2 doses, total 3 doses for COPD exacerbation. Flu, COVID and RSV PCR ordered. Sputum culture ordered. 08/22: Discontinue IV Solu-Medrol 08/23: On scheduled bronchodilator. Continue incentive spirometry. 08/25: Advised follow-up in pulmonary office 4. DM type II: Glucose is 150 mg/dL. A1c tomorrow a.m. On Lantus 20 units subcutaneous twice daily continue with hypoglycemia protocol. Accu-Chek before meals and at bedtime with Humalog sliding scale coverage and hypoglycemia protocol. 08/22 A1c 7.4%. Glucose is high between 250-319. She has scheduled Humalog insulin added. But patient was on Solu-Medrol and which is discontinued now therefore glucose profile expected to improve. 08/23: Glucose is better controlled. Continue Lantus and scheduled Humalog insulin 08/24: Patient has hypoglycemia, glucose 55. Holding scheduled Lantus and Humalog insulin. Monitor [place] checks. 08/25: Glucose around 120s. Hold scheduled insulin Tussend Humalog insulin. Continue sliding scale check. 5. CKD stage IIIa: BUN/creatinine appears on the baseline 16/03.. Previous./Creatinine 33/1.27 on June 2024 and fluctuates between 1.41-1.65. 08/22: BUN/creatinine increased from 21/1.27-25/1.37. Patient had 2850 mL urine output yesterday and 1200 since midnight as documented. Therefore decrease her dose of Bumex 2 mg IV twice daily. 08/24: Creatinine 1.41 stable. 08/25:08/25: Patient creatinine going up 1.6 therefore Bumex dose decreased to 1 mg p.o. twice daily. Advised to follow-up with nephrology in 2 weeks 6. 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 Bilateral leg swelling. Started on Lovenox 40 mL subcu daily with holding parameters given the patient has history of GI bleed found to have AVM on endoscopy. 7. History of GI bleed due to AVM and chronic GERD: Last EGD in March 2024 as mentioned below. Continue PPI twice daily. Impression: - Normal esophagus. - No gross lesions in the entire stomach. - Three bleeding angiodysplastic lesions in the duodenum. Treated with a heater probe. Clip was placed. Clip audience coordinator: OggiFinogi. 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 8. Chronic CAD status post stent: Continue home medications 9. Chronic BPH with obstruction -Continue home medications Flomax and finasteride 10. Depression/anxiety -Continue home medications 11. DVT prophylaxis: As mentioned above. With high risk of DVT/PE and high risk of bleeding, Lovenox continued with PPI with holding parameters if bleeding. On 08/24: After discussion with son on 08/24, he wanted hospice consult therefore ordered. Patient had hospice consult at 5:30 PM on 08/24 but patient is indecisive and wants more time to think before making decision either way. Patient is discharged home with home health. I again talked to patient's son Ray at today, 08/25 he agreed with the discharge plan to follow-up with the health palliative/hospice care at home. Living will/advanced directive/end of life care: Patient does have living will or advanced directive. His power of managing attorney for healthcare his but also with son and granddaughter involved in decision making. After discussion of benefits/risks procedures involved with full code, DNR CC arrest and DNR CC, the patient opted for DNR CC arrest with no intubation Patient doesn't want artificial life support including intubation, tube feed, ventilator and/chest compression, central venous catheter, vasopressor and DC shock if needed Total time spent in [id number] encounter in discussion of advanced directive 17 minutes. 08/23/24 13:30: Magnesium 1.9 08/23/24 14:52: WBC 8.1, RBC 2.73 L, Hgb 8.4 L, Hct 28.0 L, MCV 102.6 H, MCH 30.8, MCHC 30.0 L, RDW Std Deviation 68.2 H, RDW Coeff of Rafael 18.0 H, Plt Count 219, MPV 11.4, Immature Gran % (Auto) 1.100 H, Neut % (Auto) 70.6 H, Lymph % (Auto) 16.5 L, [place] % (Auto) 10.1 H, Eos % (Auto) 1.6, Baso % (Auto) 0.1, Absolute Neuts (auto) 5.7, Absolute Lymphs (auto) 1.34, Nucleated RBC % 0.4, Differential Comment SCANNED, Anisocytosis 1+, Sodium 144, Potassium 3.9, Chloride 101, Carbon Dioxide 31.8, Anion Gap 12, BUN 33 H, Creatinine 1.41 H, Estim Creat Clear Calc 55.07, Est GFR (MDRD) Non-Af 52 L, BUN/Creatinine Ratio 23.5 H, Glucose 223 H, Calcium 8.3 08/24/24 04:52: WBC 9.1, RBC 2.72 L, Hgb 8.2 L, Hct 27.5 L, MCV 101.1 H, MCH 30.1, MCHC 29.8 L, RDW Std Deviation 67.4 H, RDW Coeff of Rafael 18.1 H, Plt Count 218, MPV 11.6, Immature Gran % (Auto) 1.000 H, Neut % (Auto) 68.6, Lymph % (Auto) 16.2 L, [place] % (Auto) 11.1 H, Eos % (Auto) 2.9, Baso % (Auto) 0.2, Absolute Neuts (auto) 6.2, Absolute Lymphs (auto) 1.47, Nucleated RBC % 0.3, Anisocytosis 1+, Ovalocytes 1+, Sodium 146 H, Potassium 3.7, Chloride 102, Carbon Dioxide 35.6 H, Anion Gap 8, BUN 33 H, Creatinine 1.41 H, Estim Creat Clear Calc 55.82, Est GFR (MDRD) Non-Af 52 L, BUN/Creatinine Ratio 23.3 H, Glucose 55 L, Calcium 8.1, Lactate Dehydrogenase 191, Total Protein 5.4 L 08/24/24 08:45: Fluid WBC 0.526, Fluid Tot Cell Count 0.580, Fld Polynuclear WBCs # 0.176, Fld Polynuclear WBCs % 33.4, Fluid Mononuclear WBCs 0.350, Fld Mononuclear WBCs % 66.6 Clinical Impression(s) from Imaging Studies Chest X-Ray 08/21/24 11:02 IMPRESSION: Worsened moderate right pleural effusion. Trace left base effusion. Superimposed focal consolidation not excluded within the right lower lobe. Izau-eu-vcmruyaa pulmonary edema. Median sternotomy wires. Cardiac silhouette is unchanged. No pneumothorax. Reading Location: [facility] Medications at Discharge Home Medications finasteride 5 mg tablet 5 mg PO DAILY prostate 08/14/22 tamsulosin 0.4 mg capsule 0.4 mg PO QHS prostate 08/14/22 multivitamin 1 tab PO DAILY vitamin 09/13/22 budesonide 1 mg/2 mL suspension for nebulization 1 mg (2 mL) inhalation Q12H wheezing/SOB #120 mL 09/19/23 ipratropium 0.5 mg-albuterol 3 mg (2.5 mg base)/3 mL nebulization soln 3 ml inhalation Q4H PRN PRN SOB &/OR WHEEZING #270 mL 09/19/23 escitalopram oxalate 10 mg tablet 10 mg PO DAILY mood 90 days #90 tabs 10/29/23 mirtazapine 15 mg tablet (Remeron) 7.5 mg (1/2 x 15 mg) PO QHS sleep #90 tabs 10/29/23 insulin aspart U-100 100 unit/mL (3 mL) subcutaneous pen See Protocol subcut ACHS high blood glucose 1 month #15 mL 11/12/23 needle (disp) 32 gauge 32 gauge x 5/16 (Easy Touch Hypodermic Needle) #100 ea 11/12/23 pen needle, diabetic 32 gauge x 5/32 #100 ea 12/03/23 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 sensor (FreeStyle Basilio 3 Sensor device) #1 ea 12/24/23 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,diagnostic medical sonographer,cont (FreeStyle Basilio 3 [place]) #1 ea 12/24/23 empagliflozin 10 mg tablet (Jardiance) 10 mg PO QDAY diabetes 03/16/24 ferrous sulfate 325 mg (65 mg iron) tablet (FeroSul) 325 mg PO QODAY Supplement 04/05/24 insulin glargine-yfgn 100 unit/mL (3 mL) subcutaneous pen 20 unit (0.2 mL) subcut BIDCM high blood glucose #15 mL 06/25/24 Held on 08/25/24. Instructions: Hold scheduled insulin. cholecalciferol (vitamin D3) 50 mcg (2,000 unit) capsule 50 mcg PO QDAY 06/28/24 atorvastatin 40 mg tablet 40 mg PO QHS 30 days #30 tabs 08/25/24 bumetanide 1 mg tablet 1 mg PO BID 1 month #60 tabs 08/25/24 carvedilol 3.125 mg tablet 6.25 mg (2 x 3.125 mg) PO BID BP #60 tabs 08/25/24 pantoprazole 40 mg tablet,delayed release (Protonix) 40 mg PO DAILY 30 days #0 tabs 08/25/24 sennosides 8.6 mg-docusate sodium 50 mg tablet (Stimulant Laxative Plus) 2 tab PO BID PRN Constipation #0 tabs 08/25/24 spironolactone 25 mg tablet 25 mg PO DAILY 1 month #30 tabs 08/25/24 Physical Exam Narrative Seen and examined. Patient on his baseline 4 L of oxygen. Intermittently required 6 L on exertion I think that is baseline. Patient is not short of breath at rest. Had right-sided thoracocentesis 08/24. Discussed with the patient's son on the phone over the clinical course and agreed with the discharge. Physical exam General: Alert, Oriented x3, Cooperative. Obesity, grade 1 BMI 31.4 kg/m? HEENT: Atraumatic, PERRLA, EOMI, Normocephalic. Oral: Oral mucosa dry. Neck: Supple, Negative Carotid Bruits. No JVD Chest wall/Lungs: Air entry improved in right lung, after right thoracocentesis. Mild bibasilar coarse crepitations Cardiovascular: Sinus rhythm with PVCs, Normal S1,S2, No M/G/R Abdomen: Bowel Sounds Present, Soft, Non Tender, Non-Distended : No dysuria. No renal angle tenderness. No suprapubic tenderness. Extremities: Bilateral 1+ ankle pitting edema, Capillary Refill Less than 3 Seconds Skin: No rashes, No breakdown Musculoskeletal: No Tenderness to Palpation of Joints or Extremities. ROM restricted at knees and hip joints Neurological: Cranial nerves II-XII grossly intact, DTR 2+/4. No acute focal neurological deficit. Psych/Mental Status: Normal Affect, Appropriate. Weight / BMI Weight Weight: 221 lb 1.978 oz Body Mass Index (BMI) 30.8 ABG / Lab / Microbiology Data 08/25/24 06:12 08/25/24 06:12 Laboratory: Laboratory Results - last 24 hr 08/24/24 08:45: Fluid pH 7.6, Fl Pathologist Comment Reviewed 08/25/24 06:12: WBC 9.3, RBC 2.89 L, Hgb 9.0 L, Hct 28.8 L, MCV 99.7 H, MCH 31.1, MCHC 31.3 L D, RDW Std Deviation 65.8 H, RDW Coeff of Rafael 17.8 H, Plt Count 214, MPV 11.1, Immature Gran % (Auto) 1.600 H, Neut % (Auto) 63.1, Lymph % (Auto) 21.0, [place] % (Auto) 10.9 H, Eos % (Auto) 3.2, Baso % (Auto) 0.2, Absolute Neuts (auto) 5.9, Absolute Lymphs (auto) 1.95, Nucleated RBC % 0.2, Differential Comment SCANNED, Sodium 143, Potassium 3.7, Chloride 99, Carbon Dioxide 35.3 H, Anion Gap 9, BUN 33 H, Creatinine 1.61 H, Estim Creat Clear Calc 48.57 L, Est GFR (MDRD) Non-Af 45 L, BUN/Creatinine Ratio 20.6 H, Glucose 91, Calcium 8.0 Microbiology: Microbiology 08/21/24 16:15 Sputum, Expectorated/Coughed Gram Stain - Final 08/21/24 16:15 Sputum, Expectorated/Coughed Respiratory Culture - Final Enterobacter cloacae complex Meth. resistant Staph. aureus 08/24/24 08:45 Fluid - Ascites Gram Stain - Final 08/24/24 08:45 Fluid - Ascites Body Fluid Culture - Preliminary No growth-Final to follow 08/21/24 10:45 Blood Culture (Wb) - Right Wrist Blood Culture - Preliminary Gram positive luiza 08/21/24 12:15 Blood Culture (Wb) - Right Hand Blood Culture - Preliminary No growth in 48 hours. 08/21/24 11:28 Urine, Clean Catch Urine Culture - Final Culture exhibits no growth. 08/21/24 15:15 Nasal Secretion MRSA (PCR) - Final Meth. resistant Staph. aureus 08/21/24 15:15 Mucosa - Nasopharyngeal SARS-CoV-2, Influenza & RSV (PCR) - Final Radiography Diagnostic Testing: Radiology Impression Chest X-Ray 08/25/24 12:36 IMPRESSION: No evidence of pulmonary edema. Bibasilar atelectasis is seen, somewhat more conspicuous than on the prior examination, particularly in the left lung base; cannot exclude the presence of pneumonitis at either lung base. Pleural effusions, [id number]-[id number]-[id number], are noted. No pneumothorax is seen. The cardiomediastinal silhouette is stable, without evidence of cardiomegaly. Reading Location: [place] [id number] D/C Instructions Discharge Diet: 8 Cup Fluid Restriction and 2000 mg Sodium Diet Weight Bearing Status: Weight bearing as tolerated Call your doctor if you observe: Fever of 101 or Higher, Coldness, Increased Pain, Numbness or Tingling, Change in Color, Inability to urinate, Inability to have a bowel movement, Shortness of breath, Dizziness, Fainting spells, Swelling in the ankles, Chest pain, Prolonged hiccupping, Increased palpitations (irregular heartbeat) and Calf discomfort DC O2, CPAP, BIPAP Needs Home O2 Discharge instructions: Yes Type of respiratory needs?: Oxygen Oxygen frequency: Continuous Continuous oxygen liters per minute: 6 DC home with Oxygen: Yes Home O2 Review: I have reviewed the oxygen testing, and the patient qualifies for home oxygen equipment and portability. The patient is mobile in the home and the community. When: IN 2 WEEKS Meaningful Use Info Meaningful Use Meaningful Use Diagnoses (Choose all that apply): CHF CHF MEDHAT/ARB ordered at discharge?: No Reason MEDHAT/ARB not ordered?: Worsening renal disease Documented LVEF (%): 25 Ischemic Stroke Statin Dosing Therapy Reference: STATIN DOSE THERAPY REFERENCE: * Patients > 75 years receive moderate or high dose statin therapy. * Patients 75 years or YOUNGER should receive HIGH intensity statin dose unless contraindicated. You will be required to document reason for non-treatment if statin daily dose does not meet guidelines. HIGH DOSE STATIN THERAPY DAILY Atorvastatin > than or = to 40 mg Rosuvastatin > than or = to 20 mg Amlodipine + Atorvastatin > than or = to 2.5/40 mg Ezetimibe + Simvastatin 10/80 mg Simvastatin 80mg Discharge Plan Admission Admit Date/Time: 08/21/24 12:12 Primary Reason for Your Visit: Heart failure exacerbation, pulmonary edema Attending Provider: Clive Sharp Primary Care Provider: Donna Will Consulting Providers: Isaias Granados; Cisco Cortés; Alexi Roblero; Anthony Singleton; Jordan Alonzo; Meet Mckeon; Carlito Cárdenas; Claudine Andrade; Marvin Coats; Dimas Alvarenga; Kashif Berg; Elizabeth Wilson; Aric Leon; Dugan,Ashanti; Alberta,Mitch; Sha,Rajeev; Roberto Escalante; Nikolai Keller; Leyda Fischer; Yolie Zapata; Dao Avila; Madi Tavarez; Zhang Concepcion; Kee York; Jordan Davis; Adriana Goel; Farida Todd; Linda Huizar; Katelynn De Jesus NP; Ashleigh Mcconnell Discharge Orders/Prescriptions Prescriptions: New atorvastatin 40 mg Tablet 40 mg PO QHS 30 Days Qty: 30 2RF sennosides-docusate sodium [Stimulant Laxative Plus] 8.6-50 mg Tablet 2 tab PO BID PRN (Reason: Constipation) Qty: 0 0RF bumetanide 1 mg tablet 1 mg PO BID 30 Days Qty: 60 1RF spironolactone 25 mg tablet 25 mg PO DAILY 30 Days Qty: 30 0RF Rx Instructions: Hold for serum potassium more than 5.0 Continued multivitamin Tablet 1 tab PO DAILY tamsulosin 0.4 mg capsule 0.4 mg PO QHS finasteride 5 mg tablet 5 mg PO DAILY ipratropium-albuterol 0.5 mg-3 mg(2.5 mg base)/3 mL solution for nebulization 3 ml inhalation Q4H PRN PRN (Reason: SOB &/OR WHEEZING) Qty: 270 11RF budesonide 1 mg/2 mL suspension for nebulization 1 mg inhalation Q12H Qty: 120 11RF (DME) pen needle, diabetic 32 gauge x 5/32 needle See Rx Instructions .ROUTE .MEDSUPPLY Qty: 100 5RF Rx Instructions: As directed Jardiance 10 mg tablet 10 mg PO QDAY ferrous sulfate [FeroSul] 325 mg (65 mg iron) Tablet 325 mg PO QODAY (DME) Easy Touch Hypodermic Needle 32 gauge x 5/16 needle See Rx Instructions .Route Qty: 100 0RF Rx Instructions: As directed insulin aspart U-100 100 unit/mL (3 mL) insulin pen See Protocol subcut ACHS 30 Days Qty: 15 0RF Protocol: 3. Sliding Scale Insulin Med Dosing Condition: 150-189 mg/dl = 1 unit Condition: 190-229 mg/dl = 2 units Condition: 230-269 mg/dl = 3 units Condition: 270-309 mg/dl = 4 units Condition: 310-349 mg/dl = 5 units Condition: 350-399 mg/dl = 6 units Condition: 400-449 mg/dl = 7 units Condition: Greater than 449 call physician Protocol Text: Suggested for: - Patients on Total Daily Insulin Dose of 37-55 units - Obese, infected, or steroid patients MEDIUM DOSING ALGORITHIM escitalopram oxalate 10 mg tablet 10 mg PO DAILY 90 Days Qty: 90 3RF mirtazapine [Remeron] 15 mg tablet 7.5 mg PO QHS Qty: 90 3RF (DME) FreeStyle Basilio 3 Sensor Device See Rx Instructions .Route Qty: 1 5RF Rx Instructions: As directed (DME) FreeStyle Basilio 3 [place] Misc See Rx Instructions .Route Qty: 1 0RF Rx Instructions: As directed cholecalciferol (vitamin D3) 50 mcg (2,000 unit) capsule 50 mcg PO QDAY Changed carvedilol 3.125 mg tablet 6.25 mg PO BID Qty: 60 11RF Rx Instructions: must administer with a meal/food pantoprazole [Protonix] 40 mg tablet,delayed release (DR/EC) 40 mg PO DAILY 30 Days Qty: 0 0RF Held insulin glargine-yfgn 100 unit/mL (3 mL) insulin pen 20 unit subcut BIDCM Qty: 15 1RF Hold Instructions: Hold scheduled insulin. Discontinued atorvastatin 40 mg tablet 20 mg PO QHS Qty: 90 3RF furosemide [Lasix] 40 mg tablet 20 mg PO DAILY Qty: 60 1RF Referrals / Follow Up: Donna Will MD [Primary Care Provider] - Gris Naik [facility] [Med Staff - Adv Practice Prof] - Within 2 Weeks (Bilateral pleural effusion, COPD.) Elizabeth Velazquez, PA [Med Staff - Adv Practice Prof] - Within 2 Weeks (For heart failure, pulmonary edema) Zaira Lopez MD [Med Staff - Consulting] - Within 1 Month Disposition Disposition (needs filled in before D/C Order can be placed): Home Health Service Charges/Coding Visit Charges Inpatient E&M: 10863 Subs Hosp L2
--- NOTE | 2024-08-25 16:00 | CASEMGMT ---
Social Work This instructional writer alerted by enforcement manager that patient declined hospice, after meeting with hospice last evening. In conversation with casey saw operator patient would benefit from home health care level of care for continued care and oversight at discharge. This instructional writer informed by patient's nurse, the patient is interested in advance directives. Chart reviewed and noted patient does have both a power of nursing clerk for healthcare and living will on file. Met with patient in room, introducing to self and social work role. Patient confirmed had meeting with hospice last night and has chosen not yet to go with this service. Patient reports took be living with his son Ray and to feel safe in his home. Patient open to having skilled home health care. This instructional writer offered patient a choice list of in-network providers for patient's geographical region. Patient declined reporting would like the home health care patient had in the past, which patient believed to be [facility]. Patient reported belief that he had completed advance directives in the past but wanted to confirm. Let patient know that advance directives are indeed on file. Referral made to [facility] home health care. Original start of care would not be until Friday however Cony later called back to report able to open the patient up for services as of 08/26/2024. This instructional writer spoke with patient's son Ray to update for discharge plan, to which Ray would express most much appreciation. Ray agreeable with patient coming back home and with the addition of home health. Ray believes the patient needs more time to come to terms with the idea of hospice. Ray asked if there are any services to assist when the patient was home alone. Educated to private duty, which Ray does not believe patient would be willing to pay for. Educated to medical alert which Ray felt was a good option. Ray asked if information could be left in the hospice folder in patient's room including a copy of the advance directives as this was never sent home and Ray had not been sure until conversation with this instructional writer that advance directives were in place. Presented back to patient's room and left advance directives, private duty and medical alert information in the hospice folder. Ray shared that has taken some time off of work and is able to pick patient up today will bring in patient's portable oxygen,. This instructional writer collaborated with enforcement manager Brittani on patient's home oxygen flow, so correct information was placed in the patient's discharge packet. Updated patient who is in agreement. Patient expressed much appreciation for social work involvement today, setting up services and providing information on the advance directives. Plan: Home with skilled home health care, for nursing, PT, OT and social work. No other services requested or indicated. -ROHIT Woods, PROVIDER RELATIONS ADVOCATE *This note was generated with [employer] dictation software. It may contain incorrect words, spelling, and punctuation that were not noted in review of the chart prior to signing*
[2024-08-27 08:17] LABS: Neutrophil (Segs) 33 %
== END 2024-08-25 16:45 | disposition home health service (06) | DRG 291 ==
LOC: ED 12:12 → ICU 12:28 → PCU 08-22 13:20
PROVIDERS: Internal Medicine Critical Care Medicine; Admitting Provider Internal Medicine; Emergency Provider Emergency Medicine; PCP Internal Medicine; Visit Provider Internal Medicine
DX: I13.0 Hypertensive heart and chronic kidney disease with heart failure and stage 1 through stage 4 chronic kidney disease, or unspecified chronic kidney disease (principal); J96.22 Acute and chronic respiratory failure with hypercapnia; J96.21 Acute and chronic respiratory failure with hypoxia; I50.23 Acute on chronic systolic (congestive) heart failure; J44.1 Chronic obstructive pulmonary disease with (acute) exacerbation; I24.89 Other forms of acute ischemic heart disease; E87.29 Other acidosis; J91.8 Pleural effusion in other conditions classified elsewhere; N13.8 Other obstructive and reflux uropathy; E11.22 Type 2 diabetes mellitus with diabetic chronic kidney disease; D53.9 Nutritional anemia, unspecified; N18.31 Chronic kidney disease, stage 3a; F32.A Depression, unspecified; E66.811 Obesity, class 1; I48.91 Unspecified atrial fibrillation; E11.65 Type 2 diabetes mellitus with hyperglycemia; Z79.4 Long term (current) use of insulin; I25.5 Ischemic cardiomyopathy; K21.9 Gastro-esophageal reflux disease without esophagitis; F41.9 Anxiety disorder, unspecified; E78.00 Pure hypercholesterolemia, unspecified; I25.10 Atherosclerotic heart disease of native coronary artery without angina pectoris; E11.649 Type 2 diabetes mellitus with hypoglycemia without coma; Z66 Do not resuscitate; Z22.322 Carrier or suspected carrier of Methicillin resistant Staphylococcus aureus; N40.1 Benign prostatic hyperplasia with lower urinary tract symptoms; Z79.51 Long term (current) use of inhaled steroids; Z99.81 Dependence on supplemental oxygen; Z79.84 Long term (current) use of oral hypoglycemic drugs; Z79.899 Other long term (current) drug therapy; Z86.711 Personal history of pulmonary embolism; Z86.718 Personal history of other venous thrombosis and embolism; Z95.5 Presence of coronary angioplasty implant and graft; Z68.31 Body mass index [BMI] 31.0-31.9, adult; Z87.891 Personal history of nicotine dependence
CPT/HCPCS: 32555; 36415; 36600; 71045; 71046; 80048; 80053; 80061; 81001; 82803; 82962; 83036; 83605; 83615; 83735; 83880; 83986; 84155; 84443; 84484; 85025; 85610; 85730; 87040; 87070; 87075; 87077; 87086; 87149; 87186; 87205; 87631; 87641; 88108; 88305; 88313; 89050; 93005; 93308; 94002; 94003; 94640; 94668; 94762; 97162; 97166; 97530; 99285; Q9957; A4216; C8924

== ENCOUNTER → 2024-09-24 | Outpatient (CLI) | payer MEDICARE, SELFPAY ==
[2024-09-24 13:08] LABS: Anion Gap 14 (5-15); BUN 64 mg/dL (4-19); BUN/Creat Ratio 36.0 RATIO (10-20); Calcium,Total 9.4 mg/dL (7.6-11.0); Carbon Dioxide 27.8 mmol/L (21.0-32.0); Chloride 103 mmol/L (98-108); Glucose 266 mg/dL (70-99); Magnesium 2.2 mg/dL (1.5-2.2); Potassium 4.9 mmol/L (3.3-5.1); Pro- Brain NATRIURETIC PEPTIDE 4995 pg/mL (<=1800); Vitamin B12 1005 pg/mL (180-914); Vitamin D,25 Hydroxy 27.2 ng/mL (30-100)
== END | disposition home or self-care (01) ==
LOC: BIMLAB 09:56
PROVIDERS: PCP Internal Medicine; Referring Provider Internal Medicine; Visit Provider Internal Medicine
DX: J96.22 Acute and chronic respiratory failure with hypercapnia (principal); I50.20 Unspecified systolic (congestive) heart failure; J44.1 Chronic obstructive pulmonary disease with (acute) exacerbation; E55.9 Vitamin D deficiency, unspecified
CPT/HCPCS: 36415; 80048; 82306; 82607; 83735; 83880

== ENCOUNTER → 2024-10-14 | Outpatient (CLI) | payer MEDICARE, SELFPAY | END | disposition home or self-care (01) | LOC: SL 20:04 | PROVIDERS: PCP Internal Medicine; Referring Provider Nurse Practitioner Family; Visit Provider Nurse Practitioner Family | DX: G47.10 Hypersomnia, unspecified (principal) | CPT/HCPCS: 95810 ==

== ENCOUNTER → 2024-11-25 | Outpatient (CLI) | payer MEDICARE, SELFPAY | END | disposition home or self-care (01) | LOC: MTLAB 13:15 | PROVIDERS: PCP Internal Medicine; Referring Provider Internal Medicine Medical Oncology; Visit Provider Internal Medicine Medical Oncology | DX: D64.9 Anemia, unspecified (principal) | CPT/HCPCS: 82274 ==

== ENCOUNTER 2024-12-24 23:12 | Inpatient (IN) | payer MEDICARE, SELFPAY ==
[2024-12-24 23:14] VITALS: BP 147/51; PULSE 93; RESP 25; TEMP 38; O2SAT 90; O2SAT 99; BMI 31.3
--- NOTE | 2024-12-24 23:25 | EKG12_ITS ---
Test Reason : SOB Blood Pressure : */* mmHG Vent. Rate : 97 BPM Atrial Rate : * BPM P-R Int : * ms QRS Dur : 102 ms QT Int : 382 ms P-R-T Axes : * 47 61 degrees QTcB Int : 485 ms Normal sinus rhythm with frequent Premature atrial complexes Nonspecific ST and T wave abnormality QTcB >= 480 msec Abnormal ECG Confirmed by Mekhi Garcia ([id number]), editor & co founder AVINASH MARTINEZ ([id number]) on 12/27/2024 1:01:45 PM Referred By: ROBY Confirmed By: Mekhi Garcia
[2024-12-24 23:26] VITALS: BP 107/80; PULSE 104; RESP 20; TEMP 38; O2SAT 100
--- NOTE | 2024-12-24 23:36 | RAD_ITS ---
PROCEDURE: CHEST 1 VIEW (PORTABLE) 12/24/2024 REASON FOR EXAM: DYSPNEA TECHNIQUE: Frontal view of the chest. COMPARISON: 08/25/2024. FINDINGS: Unremarkable median sternotomy wires. Minimal bilateral basilar atelectatic pulmonary changes. There is no demonstrated pleural abnormality. Enlarged cardiac silhouette. Normal mediastinum and sho. Normal visualized pulmonary arteries. Atheromatous plaques of the visualized aortic arch and descending thoracic aorta. Diffuse spondylosis of the visualized thoracic spine. Normal visualized ribs, clavicles. Degenerative joint disease. There is no demonstrated abnormality of the visualized soft tissue structures of the upper abdomen. RAD/Chest 1 View (Portable) IMPRESSION: Minimal bilateral basilar atelectatic pulmonary changes. [facility]
--- NOTE | 2024-12-24 23:42 | EX.ED.DYSGE1 ---
HPI History of Present Illness Chief Complaint: Shortness of Breath Informant: patient Narrative Narrative: Patient is a 74-year-old male with past medical history of COPD on 3 L nasal cannula oxygen chronically as well as hypertension and chronic atrial fibrillation. Patient also has insulin-dependent type 2 diabetes. He reports he has had subjective fevers and chills for the past 2 to 3 days with increasing cough and shortness of breath. He denies any known sick contacts. He states he has been increasing his oxygen from 3 to 4/5 L because of his shortness of breath symptoms. Despite this there has been no improvement and therefore he presents to the ER for evaluation. [facility] Medical History Acute and chronic respiratory failure with hypercapnia Type 2 WV (myocardial infarction) MRSA (methicillin resistant staph aureus) culture positive Ischemic cardiomyopathy COVID-19 Lethargic COPD with acute exacerbation Elevated troponin I level LUIS (acute kidney injury) Hypoxemia Chronic kidney disease (CKD), stage III (moderate) Acute hypoxic on chronic hypercapnic respiratory failure FTT (failure to thrive) in adult Former smoker On home oxygen therapy Bleeding tendency Ulcer High cholesterol History of stress test HTN (hypertension) Tobacco abuse History of pulmonary embolus (PE) (04/30/21) Essential hypertension Type 2 diabetes mellitus DVT (deep venous thrombosis) (05/01/21) Rhinovirus Acute respiratory failure with hypoxia Physical debility COVID-19 in immunocompromised patient Nicotine dependence, cigarettes, uncomplicated Diabetes Arthritis Cancer COPD (chronic obstructive pulmonary disease) History of basal cell carcinoma Atherosclerosis of coronary artery of [place] heart without angina pectoris Pneumonia Non-Hodgkin lymphoma History of pilonidal cyst Allergic rhinitis 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 complications Gastritis Colon polyp Obesity Asthma Chronic bronchitis Positive colorectal cancer screening using Cologuard test RA (rheumatoid arthritis) Home Medications ?Medication ?Instructions ?Recorded ?Last Taken ?Type finasteride 5 mg tablet 5 mg PO DAILY prostate 08/14/22 07/07/24 History tamsulosin 0.4 mg capsule 0.4 mg PO QHS prostate 08/14/22 07/07/24 History multivitamin 1 tab PO DAILY vitamin 09/13/22 07/07/24 History mirtazapine 15 mg tablet (Remeron) 7.5 mg (1/2 x 15 mg) PO QHS sleep 10/29/23 07/07/24 Rx #90 tabs needle (disp) 32 gauge 32 gauge x #100 ea 11/12/23 Unknown Rx / (Easy Touch Hypodermic Needle) pen needle, diabetic 32 gauge x #100 ea 12/03/23 Unknown Rx 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 sensor (FreeStyle #1 ea 12/24/23 Unknown Rx Basilio 3 Sensor device) 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,director of social services,cont #1 ea 12/24/23 Unknown Rx (FreeStyle Basilio 3 [place]) ferrous sulfate 325 mg (65 mg 325 mg PO QODAY Supplement 04/05/24 07/07/24 History iron) tablet (FeroSul) cholecalciferol (vitamin D3) 50 50 mcg PO QDAY 06/28/24 07/07/24 History mcg (2,000 unit) capsule pantoprazole 40 mg tablet,delayed 40 mg PO DAILY 30 days #0 tabs 08/25/24 07/07/24 Rx release (Protonix) sennosides 8.6 mg-docusate sodium 2 tab PO BID PRN Constipation #0 08/25/24 Unknown Rx 50 mg tablet (Stimulant Laxative tabs Plus) albuterol sulfate 90 mcg/actuation 2 puff inhalation Q6 PRN shortness 09/24/24 Unknown History aerosol inhaler of breath or wheezing budesonide 1 mg/2 mL suspension 1 mg (2 mL) inhalation Q12H 09/24/24 Unknown Rx for nebulization wheezing/SOB #120 mL atorvastatin 40 mg tablet 40 mg PO QHS #90 tabs 10/08/24 Unknown Rx carvedilol 6.25 mg tablet 6.25 mg PO BID BP #180 tabs 10/08/24 Unknown Rx spironolactone 25 mg tablet 25 mg PO DAILY #90 tabs 10/08/24 Unknown Rx empagliflozin 10 mg tablet 10 mg PO DAILY #90 TABLETS 11/10/24 Unknown Rx (Jardiance) ipratropium 0.5 mg-albuterol 3 mg 3 ml inhalation Q4H PRN PRN SOB 11/26/24 Unknown Rx (2.5 mg base)/3 mL nebulization &/OR WHEEZING #270 mL soln escitalopram oxalate 10 mg tablet 10 mg PO DAILY mood 90 days #90 11/29/24 Unknown Rx tabs bumetanide 0.5 mg tablet 0.5 mg PO QDAY #180 tabs 12/17/24 Unknown Rx insulin aspart U-100 100 unit/mL See Rx Instructions subcut 12/23/24 Unknown Rx (3 mL) subcutaneous pen .COMPLEX High Blood Glucose #15 mL insulin glargine-yfgn 100 unit/mL See Rx Instructions subcut BIDCM 12/23/24 Unknown Rx (3 mL) subcutaneous pen high blood glucose #15 mL Allergy/AdvReac Type Severity Reaction Status Date / Time No Known Allergies Allergy Verified 12/06/24 10:24 Family History Father Arthritis Bleeding disorder Hypertension Kidney disease Cancer Skin Anemia blood clots Emphysema lung Mother Colon cancer Cancer Lung Cancer Diabetes Brother Thyroid disorder Surgical History History of embolic filter insertion History of heart artery stent Status post cardiac surgery H/O cardiac catheterization Presence of IVC filter (04/2021) History of coronary artery stent placement (10/22/13) History of thymectomy Hx of lymph node excision History of excision of pilonidal cyst Social History household members: spouse Smoking Status: Former smoker Tobacco: How many years used: 55 second hand exposure: Yes alcohol intake: current alcohol intake frequency: holidays/special occasions only substance use type: does not use caffeine: Yes Type: coffee Number of servings: 3 what type of physical activity do you participate in: none frequency: does not exercise seatbelt use: always ROS ROS ED Constitutional Constitutional ED: Reports chills, fever(s) and subjective ENT ENT ED: Reports rhinorrhea and sore throat Cardiovascular Cardiovascular: Denies chest pain Respiratory/Chest Respiratory/Chest: Reports cough, dyspnea and dyspnea on exertion Gastrointestinal Gastrointestinal: Denies abdominal pain, diarrhea, nausea or vomiting Genitourinary Genitourinary ED: Denies dysuria Musculoskeletal Musculoskeletal: Reports myalgias Integumentary Denies rash Neurologic Neurologic: Denies headache(s) Hematologic/Lymphatic Hematologic/Lymphatic: Denies easy bleeding or easy bruising Allergic/Immunologic Allergic/Immunologic ED: Denies mouth swelling or tongue swelling EXAM Physical Exam Const Vital Signs: 12/24/24 23:14 12/24/24 23:26 12/25/24 00:06 Temperature 100.4 F H 100.4 F H 101.1 F H Temperature Source Oral Oral Oral Pulse Rate 93 104 H 84 Respiratory Rate 25 H 20 H 23 H Respiratory Effort Respiratory Depth Respiratory Pattern Blood Pressure 147/51 H 107/80 138/70 H Blood Pressure Mean 83 89 92 Pulse Ox 99 100 94 Oxygen Delivery Method Nasal Cannula Room Air Nasal Cannula Oxygen Flow Rate (L/min) 6 6 12/25/24 00:11 12/25/24 00:36 12/25/24 01:00 Temperature 101 F H Temperature Source Oral Pulse Rate 83 80 Respiratory Rate 21 H 20 H Respiratory Effort Normal Respiratory Depth Shallow Respiratory Pattern Tachypnea Blood Pressure 138/70 H 105/54 L Blood Pressure Mean 92 71 Pulse Ox 94 96 Oxygen Delivery Method Nasal Cannula Nasal Cannula Nasal Cannula Oxygen Flow Rate (L/min) 6 6 6 12/25/24 01:03 12/25/24 01:05 12/25/24 01:15 Temperature Temperature Source Pulse Rate 81 Respiratory Rate 20 H Respiratory Effort Respiratory Depth Respiratory Pattern Blood Pressure 99/43 L 105/54 L 112/51 L Blood Pressure Mean 61 67 69 Pulse Ox 98 Oxygen Delivery Method Oxygen Flow Rate (L/min) 12/25/24 01:30 12/25/24 01:45 12/25/24 02:00 Temperature Temperature Source Pulse Rate 81 80 Respiratory Rate 21 H 22 H Respiratory Effort Respiratory Depth Respiratory Pattern Blood Pressure 112/56 L 107/53 L 110/55 L Blood Pressure Mean 73 70 71 Pulse Ox 96 Oxygen Delivery Method Oxygen Flow Rate (L/min) 12/25/24 02:13 Temperature 98.0 F Temperature Source Pulse Rate 77 Respiratory Rate 20 H Respiratory Effort Respiratory Depth Respiratory Pattern Blood Pressure 110/55 L Blood Pressure Mean 73 Pulse Ox 97 Oxygen Delivery Method Oxygen Flow Rate (L/min) Positive well nourished and well developed General Appearance ED: well developed and pallor HEENT HEENT Narrative: Normocephalic atraumatic No tongue or lip swelling no oral lesions no airway edema or compromise Cobblestoning is noted in the posterior pharynx consistent with sinus drainage; no secondary findings to suggest infection Eyes PERRL and EOMs intact bilaterally General Eye ED: Negative for scleral icterus Neck supple and no JVD Chest Wall palpation of chest normal Resp normal respiratory effort Resp Narrative: Breath sounds are diminished throughout with faint expiratory wheeze and rhonchi bilaterally in the bases Cardio regular rate Rate: other Other Details: Irregularly irregular rhythm with regular rate consistent with history of chronic atrial fibrillation GI non-tender, non-distended and no masses Auscultation: normoactive bowel sounds Palpation: soft Extremity Extremity Narrative: Trace/+1 pitting edema to the bilateral lower extremities that is equal and symmetric Neuro oriented x3, CN's II-XII intact bilaterally and no sensory deficits noted Sensorium / Orientation: alert Psych mental status grossly normal Skin no rashes or lesions noted General Skin Exam: pallor; Negative for jaundice MDM MDM MDM Narrative Medical decision making narrative: Patient arrived to the ER febrile but otherwise maintaining his blood pressure and only requiring a few liters of nasal cannula oxygen on top of his baseline to keep his sats in the mid 90s. With his report of increased shortness of breath and fever there is concern for pneumonia or potentially a viral infection such as COVID influenza or RSV. Secondary to this basic labs were obtained with a viral swab and chest x-ray. Patient's white count is elevated at 14.3 concerning for systemic infection. However his lactic acid value is normal and his procalcitonin is under 0.5. Chest x-ray revealed no obvious sign of infection such as pneumonia and with his history of atrial fibrillation not on anticoagulation there is concern he may have developed a PE or the x-ray simply missed a pneumonia. Therefore CTA of the chest was obtained and a urine sample was added to check for source of infection as well. Urine sample did show changes concerning for developing infection and therefore was sent for culture. The CT of the chest revealed no PE but it did show changes concerning for developing pneumonia. Based on his fever and need for increased submental oxygen I felt it safest to give him broad-spectrum antibiotics while cultures were obtained. On reevaluation the patient is resting comfortably and is in no respiratory distress but he still needs roughly 6 L of nasal cannula oxygen which is above his baseline to keep his sats in the mid 90s. I do feel that with his significant medical history and the fact that his workup is showing both UTI and pneumonia as a potential cause for his symptoms that his safest option will be monitoring in the hospital to ensure that the fever and symptoms are improving and that blood cultures are negative. Therefore I discussed the case with the hospitalist who agrees to accept the patient to her care for continued treatment History & Record Review Discussion w/independent historian: Patient Lab Data Attestation: I reviewed the patient's lab results. Labs: Laboratory Results - last 24 hr 12/24/24 12/25/24 23:21 01:25 WBC 14.3 H RBC 2.90 L Hgb 9.2 L Hct 28.3 L MCV 97.6 H MCH 31.7 MCHC 32.5 RDW Std Deviation 60.4 H RDW Coeff of [place] 17.1 H Plt Count 301 MPV 11.3 Immature Gran % (Auto) 2.100 H Neut % (Auto) 47.9 Lymph % (Auto) 30.5 [place] % (Auto) 15.2 H Eos % (Auto) 3.7 Baso % (Auto) 0.6 Absolute Neuts (auto) 6.8 Absolute Lymphs (auto) 4.34 Nucleated RBC % 0.5 Differential Comment SCANNED Sodium 138 Potassium 4.9 Chloride 98 Carbon Dioxide 26.8 Anion Gap 13 BUN 50 H Creatinine 2.04 H Estim Creat Clear Calc 38.01 L Est GFR (MDRD) Non-Af 33 L BUN/Creatinine Ratio 24.6 H Glucose 266 H Lactic Acid 1.7 Calcium 9.3 Magnesium 2.1 NT pro BNP II 2413 H Procalcitonin 0.14 H Urine Color Yellow Urine Clarity Turbid Urine pH 6.0 Ur Specific [place] 1.020 Urine Protein 100 H Urine Glucose (UA) 1000 H Urine Ketones Negative Urine Occult Blood 50 H Urine Nitrite Negative Urine Bilirubin Negative Urine Urobilinogen 1 H Ur Leukocyte Esterase 500 H Urine RBC 0 SEEN Urine WBC 50-100 SEEN Ur Squamous Epith Cells 0-5 SEEN Ur Renal Epithelial Cell 0-5 SEEN Urine Bacteria 2+ Urine Mucus 0 SEEN Urine Yeast 1+ Radiography Diagnostic Testing: Clinical Impression(s) from Imaging Studies Chest X-Ray 12/24/24 23:36 IMPRESSION: Minimal bilateral basilar atelectatic pulmonary changes. Reading Location: [facility] [address] Chest CTA 12/25/24 00:05 IMPRESSION: No evidence of pulmonary arterial thromboembolism. Cardiomegaly. Bilateral pulmonary patchy ground glass opacities and acinar densities, most evidently involving the right upper lung lobe, possibly infectious. Bilateral pulmonary atelectatic changes with predominantly lower lobar bronchial wall thickening No obvious pulmonary masses or consolidations. Reading Location: [place] [id number] 1 view chest x-ray as interpreted by the emergency medicine physician reveals bibasilar atelectasis without obvious infiltrate pneumothorax or pleural effusion Management Discussion w/another healthcare provider: Hospitalist Discharge Plan Dx/Rx/DC Orders Clinical Impression: Pneumonia, UTI (urinary tract infection), Pyrexia, Renal insufficiency, COPD (chronic obstructive pulmonary disease), Atrial fibrillation, Diabetes mellitus type 2, insulin dependent Disposition Disposition: Acute Care Hospital [facility]
[2024-12-24 23:55] LABS: Hematocrit 28.3 % (40-54); Hemoglobin 9.2 g/dL (13.0-16.5); Immature Granulocytes Count 0.300 X10^3/uL (0.0-0.0); Mean Corp Hgb Conc 32.5 g/dL (32-36); Mean Corpuscular Volume 97.6 fL (80-94); Mean Platelet Vol. 11.3 fl (6.2-12.0); NRBC Flagged by Analyzer 0.5 % (0-5); POSITIVE DIFFERENTIAL YES; Platelet Count 301 K/mm3 (150-450); RBC Distribution Width CV 17.1 % (11.6-14.6); RBC Distribution Width SD 60.4 fl (35.1-43.9); Red Blood Count 2.90 M/mm3 (4.6-6.2); White Blood Count 14.3 K/mm3 (4.4-11.0)
[2024-12-25] VITALS (18 sets, daily range): BP systolic 99–138; BP diastolic 43–70; PULSE 57–84; RESP 16–23; TEMP 36.4–38.4; O2SAT 92–99; BMI 30.5; BMI 30.7
[2024-12-25] LABS: Differential Indicated SCAN CRITERIA MET
--- NOTE | 2024-12-25 00:05 | CT_ITS ---
PROCEDURE: CTA CHEST W/WO CONTRAST 12/25/2024 REASON FOR EXAM: DYSPNEA TECHNIQUE: Procedure Code: [id number] Modality: CT Procedure: CTA CHEST W/WO CONTRAST Multiplanar Sagittal and Coronal images were obtained. CONTRAST: isovue 370 VOLUME: 100 mL One or more dose reduction techniques were used (e.g., Automated exposure control, adjustment of the mA and/or kV according to patient size, use of iterative reconstruction technique). RADIATION DOSE SUMMARY: CTDI Vol 8.61 mGy DLP :291.94 mGycm COMPARISON: 24-Dec-2024 CR FINDINGS: No evidence of any filling defect in the main pulmonary trunk, bilateral main pulmonary arteries, segmental arteries and subsegmental arteries to suggest acute or chronic pulmonary embolism. Dilated pulmonary artery and its branches. Patent thoracic aorta showing intimal irregularities and calcified atheromatous plaques. No intraluminal hypodense thrombi, dissecting intimal flaps or significant aneurysmal dilatation. Cardiomegaly. Sternotomy suture wires noted. Bilateral pulmonary patchy ground glass opacities and acinar densities, most evidently involving the right upper lung lobe, possibly infectious. Bilateral pulmonary atelectatic changes with predominantly lower lobar bronchial wall thickening No obvious pulmonary masses or consolidations. No pleural or pericardial sac collections. No pathologically enlarged hilar or mediastinal lymph nodes are noted. Scanned osseous structures show no acute osseous destruction. Left ribs old malunited fractures. Thoracic spondylosis. CT/CTA Chest W/WO Contrast IMPRESSION: No evidence of pulmonary arterial thromboembolism. Cardiomegaly. Bilateral pulmonary patchy ground glass opacities and acinar densities, most ev idently involving the right upper lung lobe, possibly infectious. Bilateral pulmonary atelectatic changes with predominantly lower lobar bronchia l wall thickening No obvious pulmonary masses or consolidations. Reading Location: [facility]
[2024-12-25 00:06] LABS: Magnesium 2.1 mg/dL (1.5-2.2); Pro- Brain NATRIURETIC PEPTIDE 2413 pg/mL (<=1800); Procalcitonin 0.14 ng/mL (<=0.10)
--- OUTSIDE RECORDS SUMMARY | 2024-12-25 00:06 | XMS RPT_ITS | CCD ---
Author Organization [facility] Care Team Providers Care Cleaner And Polisher Name Role Phone Dr. Donna Will Primary [...] Provider Dr. Anthony Singleton Other Provider Dr. Dnak Corbin Other Provider Dr. Suze Rosas Other Provider Dr. Clive Sharp Referring Provider Dr. Suze Rosas Attending Provider Dr. Norm Mello Attending Provider Oliver GOLF INSTRUCTOR, SORIN Escobar Attending Provider Dr. Marco Hoffman Emergency Provider Dr. Suze Rosas Admit Provider Dr. Wilberto Villafuerte Other Provider Dr. Anthony Singleton Attending Provider Dr. Silas Sinha Chi Referring Provider Dr. Wilberto Huerta Attending Provider Dr. Jordan Ortiz Referring Provider Unavailable Dr. Khai Galeaan Attending Provider Dr. Wilberto Huerta Other Provider Leigh HILARIO, PAChas Dale Attending Provider Dr. Khai Galeana Referring Provider [...] Provider Dr. Norm Mello Attending Provider Oliver GOLF INSTRUCTOR, GOLF INSTRUCTOR-C Luz Attending Provider Dr. Marco Hoffman Emergency Provider Dr. Suze Rosas Admit Provider Dr. Jordan Ortiz Other Provider Unavailable Dr. Wilberto Villafuerte Other Provider Dr. Anthony Singleton Attending Provider Dr. Silas Sinha Chi Referring Provider Dr. Jordan Ortiz Attending Provider Unavailable Dr. Wilberto Huerta Attending Provider Dr. Jordan Ortiz Referring Provider Unavailable Dr. Khai Galeana Attending Provider Dr. Wilberto Huerta Other Provider Leigh HILARIO PAChas Dale Attending Provider Dr. Khai Galeana Referring Provider Beatriz Osorio Attending Provider Unavailable Ashok GOLF INSTRUCTOR, GOLF INSTRUCTOR-C More Attending Provider Dr. Farida Todd Emergency Provider Dr. Jordan Ortiz Admit Provider Unavailable Dr. Donna Will Primary Care Provider Dr. Donna Will Attending Provider [phone] Donna Will Referring Provider [phone] Dr. Jordan Ortiz Attending Provider Unavailable Dr. Jordan Ortiz Other Provider Unavailable Dr. Wilberto Huerta Attending Provider Dr. Donna Will Primary Care Provider Dr. Donna Will Referring Provider [phone] Dr. Donna Will Attending Provider Dr. Hayden Morley Emergency Provider Dr. Janice Mackey Admit Provider Dr. Janice Mackey Other Provider Dr. Nadira Ricks Attending Provider Dr. Nadira Ricks Other Provider Dr. Donna Will Primary Care Provider Dr. Donna Will Referring Provider [phone] Ashok GOLF INSTRUCTOR, GOLF INSTRUCTOR-C More Attending Provider Dr. Wilberto Huerta Referring Provider YANELIS Mayfield Attending Provider Piña [facility]obi Bocanegra Attending Provider YANELIS Mayfield Referring Provider PIÑA, GOLF INSTRUCTOR-C LOEG Primary Care Provider PIÑA, GOLF INSTRUCTOR-C OLEG Referring Provider Dr. Marco Hoffman Emergency Provider Dr. Mario Dewitt Admit Provider Dr. Mario Dewitt Attending Provider Dr. Mario Dewitt Other Provider Dr. Khai Galeana Other Provider Dr. Tboi Shannon Attending Provider Dr. Khai Galeana Attending Provider Dr. Suze Rosas Other Provider Dr. Suze Rosas Attending Provider Dr. Donna Will Primary Care Provider Dr. Donna Will Referring Provider Ashok GOLF INSTRUCTOR, GOLF INSTRUCTOR-C More Attending Provider Dr. Suze Rosas Attending Provider Dr. Suze Rosas Referring Provider Dr. Margie Joy Emergency Provider Dr. Janice Mackey Attending Provider Dr. Jordan Ortiz Other Provider Unavailable Angel, Dr. Ortega Attending Provider Unavailable Angel, Dr. Ortega Referring Provider Unavailable Angel, Dr. Ortega Attending Provider Unavailable Dr. Donna Will Primary Care Provider Dr. Hayden Morley Emergency Provider Dr. Janice Mackey Admit Provider Dr. Janice Mackey Other Provider Dr. Nadira Ricks Attending Provider Dr. Nadira Ricks Other Provider Dr. Donna Will Referring Provider YANELIS Mayfield Attending Provider Oelg Piña Primary Care Provider [facility] Dr. Tobi Bocanegra Attending Provider YANELIS Mayfield Referring Provider CARO GOLF INSTRUCTOR-C OLEG Primary Care Provider GERA PIÑA-Gurwinder DEJESUS Referring Provider Pulido GOLF INSTRUCTOR, GOLF INSTRUCTOR-C More Attending Provider Dr. Marco Hoffman Emergency [...] Angel, Dr. Ortega Attending Provider Unavailable CARO, GOLF INSTRUCTOR-C OLEG Primary Care Provider Dr. Janice Mackey Admit Provider Dr. Janice Mackey Other Provider Dr. Tobi Zapata Attending Provider Dr. Faisal Walker Emergency Provider Dr. Tobi Shannon Admit Provider Dr. Tobi Shannon Attending Provider Dr. Tobi Shannon Other Provider Dr. Alexi Roblero Attending Provider Dr. Alexi Roblero Other Provider Dr. Anthony Singleton Other Provider Dr. Rambo Bruner Other Provider Dr. Afshin Pablo Other Provider Unavailab Garg GOLF INSTRUCTOR, GOLF INSTRUCTOR-C More Other Provider Dr. Anthony Singleton Attending Provider GERA PIÑA-Gurwinder OLEG Primary Care Provider Dr. Margie Joy Emergency Provider Dr. Janice Mackey Admit Provider Dr. Janice Mackey Attending Provider Dr. Janice Mackey Other Provider Dr. Suze Rosas Attending Provider Dr. Suze Rosas Other Provider Dr. Jordan Ortiz Referring Provider Unavailable Angel, Dr. Ortega Other Provider Unavailable Lissett, Dr. Ridley Attending Provider [phone] Dr. Jordan Ortiz Attending Provider Unavailable CARO GOLF INSTRUCTOR-C OLEG Referring Provider Dr. Tobi Zapata Attending Provider Dr. Faisal Walker Emergency Provider Mirtha, Dr. Tobi Desaiit Provider Mirtha, Dr. Britton Attending Provider Mirtha, Dr. Britton Other Provider Mirtha, Dr. Britton Referring Provider Dr. Alexi Roblero Attending Provider [phone] Alexi Roblero Other Provider Dr. Anthony Singleton Other Provider Dr. Rambo Bruner Other Provider Bev, Dr. Pepe Other Provider Unavail higinio Pulido GOLF INSTRUCTOR, GOLF INSTRUCTOR-C More Other Provider Dr. Anthony Singleton Attending Provider [phone] CARO, GOLF INSTRUCTOR-C OLEG Primary Care Provider CARO, GOLF INSTRUCTOR-C OLEG Referring Provider [phone] Dr. Tobi Zapata Attending Provider Dr. Faisal Walker Emergency Provider [phone] Tobi Shannon[address] Provider Dr. Tobi Shannon Attending Provider Dr. Tobi Shannon Other Provider Dr. Tobi Shannon Referring Provider Dr. Suze Rosas Other Provider Dr. Alexi Roblero Attending Provider [phone] Alexi Roblero Other Provider Dr. Anthony Singleton Other Provider Dr. Rambo Bruner Other Provider Dr. Afshin Pablo Other Provider Unavailab le Ashok GOLF INSTRUCTOR, GOLF INSTRUCTOR-C More Other Provider Dr. Suze Rosas Attending Provider Dr. Anthony Singleton Attending Provider Dr. Jordan Ortiz Other Provider Unavailable Dr. Jordan Ortiz Attending Provider Unavailable PIÑA, GOLF INSTRUCTOR-C OLEG Primary Care Provider PIÑA, GOLF INSTRUCTOR-C OLEG Referring Provider Dr. Tobi Zapata Attending Provider Ashok GOLF INSTRUCTOR, GOLF INSTRUCTOR-C More Attending Provider [phone] PIÑA, GOLF INSTRUCTOR-C OLEG Primary Care Provider Dr. Anthony Singleton Attending Provider Dr. Anthony Singleton Referring Provider [phone] Anthony Singleton Other Provider Dr. Khai Galeana Attending Provider PIÑA, GOLF INSTRUCTOR-C OLEG Primary Care Provider Dr. Anthony Singleton Attending Provider [phone] PIÑA, GOLF INSTRUCTOR-C OLEG Referring Provider Dr. Tobi Zapata Attending Provider Dr. Donna Will Attending Provider PIÑA, GOLF INSTRUCTOR-C OLEG Primary Care Provider PIÑA, GOLF INSTRUCTOR-C OLEG Referring Provider Dr. Khai Galeana Attending Provider Dr. Donna Will Primary Care Provider Dr. Donna Will Referring Provider Dr. Norm Mello Attending Provider West GOLF INSTRUCTOR, GOLF INSTRUCTOR-C Martha Attending Provider Dr. Jj Garcia Emergency Provider Dr. Loki Lozoya Admit Provider [phone] Loki Lozoya Attending Provider [phone] Dr. Loki Lozoya Other Provider [phone] Chicho Carson Attending Provider Dr. Jordan Ortiz Attending Provider Unavailable Dr. Jordan Ortiz Other Provider Unavailable Dr. Donna Will Primary Care Provider Dr. Donna Will Referring Provider Dr. Tobi Zapata Attending Provider Dr. Jj Garcia Emergency Provider Dr. Loki Lozoya Admit Provider [phone] Loki Lozoya Attending Provider [phone] Dr. Loki Lozoya Other Provider [phone] Chicho Carson Attending Provider [phone] Dr. Loki Lozoya Referring Provider [phone] Dr. Jordan Ortiz Attending Provider Unavailable Dr. Jordan Ortiz Other Provider Unavailable Dr. Donna Will Attending Provider Ashok GOLF INSTRUCTOR, GOLF INSTRUCTOR-C More Attending Provider Dr. Donna Will Primary Care Provider Dr. Donna Will Referring Provider Dr. Tobi Zapata Attending Provider Dr. Donna Will Primary Care Provider Dr. Jj Garcia Emergency Provider Dr. Loki Lozoya Admit Provider [phone] Loki Lozoya Attending Provider [phone] Dr. Loki Lozoya Other Provider [phone] Chicho Carson Attending Provider Dr. Loki Lozoya Referring Provider [phone] Dr. Jordan Ortiz Attending Provider Unavailable Dr. Jordan Ortiz Other Provider Unavailable Dr. Donna Will Attending Provider Dr. Donna Will Referring Provider Dr. Tobi Zapata Attending Provider Ashok GOLF INSTRUCTOR, GOLF INSTRUCTORChas Aguero Attending Provider Dr. Dwain Nowak Emergency Provider Dr. Mable Pritchard Admit Provider Dr. Mable Pritchard Attending Provider Dr. Mable Pritchard Other Provider Dr. Donna Will Primary Care Provider Dr. Jj Garcai Emergency Provider Dr. Loki Lozoya Admit Provider [...] Other Provider Dr. Isaias Granados Other Provider [phone] Dr. Alexi Roblero Other Provider Dr. Anthony Singleton Attending Provider Dr. Anthony Singleton Other Provider Dr. Carlito Cárdenas Other Provider [phone] Claudine Andrade Other Provider [phone] Dr. Marvin Coats Other Provider Dr. Elizabeth Wilson Other Provider Dr. Aric Leon Other Provider Unavailable Dr. Rajeev Dalton Other Provider Dr. Roberto Escalante Other Provider Dr. Madi Tavarez Other Provider Dr. Zhang Concepcion Other Provider [phone] Aron, Dr. Duffy Referring Provider [phone] Aron, Dr. Duffy Other Provider Aron, Dr. Duffy Attending Provider Riaz, Dr. Zheng Referring Provider Friend, Dr. Ridley Attending Provider Gloria, GERA-C Bethany Purcell Attending Provider Dr. Donna Will Attending Provider [phone] Donna Will Primary Care Provider Dr. Donna Will Referring Provider [phone] Tobi Zapata Attending Provider Ashok GOLF INSTRUCTOR, GOLF INSTRUCTOR-C More Attending Provider Dr. Dwain Nowak Emergency Provider Dr. Mable Pritchard Admit Provider Dr. Mable Pritchard Attending Provider Dr. Mable Pritchard Other Provider Dr. Jordan Ortiz Attending Provider Unavailable Dr. Jordan Ortiz Other Provider Unavailable Dr. Norm Mello Attending Provider Dr. Jordan Ortiz Referring Provider Unavailable Dr. Eva Marie Emergency Provider [phone] Nadira Ricks Admit Provider Dr. Nadira Ricks Other Provider Dr. Isaias Granados Other Provider Dr. Alexi Roblero Other Provider Dr. Anthony Singleton Attending Provider Dr. Anthony Singleton Other Provider Dr. Carlito Cárdenas Other Provider [phone] Dr. Claudine Andrade Other Provider Dr. Marvin Coats Other Provider Dr. Elizabeth Wilson Other Provider Dr. Aric Leon Other Provider Unavailable Dr. Rajeev Dalton Other Provider Dr. Roberto Escalante Other Provider Dr. Madi Tavarez Other Provider Dr. Zhang Concepcion Other Provider Dr. Clive Sharp Referring Provider Dr. Clive Sharp Other Provider Dr. Clive Sharp Attending Provider Dr. Norm Mello Referring Provider Friend, Dr. Ridley Attending Provider GERA Castro-C Bethany Purcell Attending Provider Dr. Donna Will Attending Provider Rudolph GOLF INSTRUCTOR, GOLF INSTRUCTOR-C Jennifer Attending Provider Dr. Donna Will Primary Care Provider Dr. Donna Will Referring Provider Dr. Tobi Zapata Attending Provider Dr. Tobi Zapata Referring Provider Benny, Dr. Britton Other Provider Dr. Donna Will MD Primary Care Provider Dr. Donna Will MD Attending Provider Dr. Donna Will MD Referring Provider Gumaro GOLF INSTRUCTOR-C, Gris Dominguez Attending Provider Gumaro GOLF INSTRUCTOR-CGris Referring Provider Marcus HILARIO, Elizabeth Dominguez Attending Provider Higinio [place], Dr. Ly Emergency Provider de Americo [place], Dr. Ortega Admit Provider Unavail able Mendoza DO, Dr. Ortega Other Provider Unavail able Darwin TEIXEIRA, Dr. Esparza Other Provider Milana TEIXEIRA, Dr. Peck Other Provider Osbaldo TEIXEIRA, Dr. Truong Other Provider Mani [place], Dr. Cruz Other Provider [phone] Clinton TEIXEIRA, Dr. Jordan Serra Other Provider Mike TEIXEIRA, Dr. Dsouza Other Provider Avi TEIXEIRA, Dr. Esteban Other Provider Raymond TEIXEIRA, Dr. Chow Other Provider [phone] Pauly TEIXEIRA, Dr. Wong Other Provider Lyle TEIXEIRA, Dr. Cochran Other Provider Dr. Kashif Berg MD Other Provider Steve TEIXEIRA, Dr. Johnson Other Provider Edward TEIXEIRA, Dr. Corbett Other [facility] jaclyn Dugan MD, Dr. Burrell Other Provider Dr. Mitch Pinzon MD Other Provider Dr. Rajeev Dalton MD Other Provider Ava TEIXEIRA, Dr. Mejia Other Provider Arianna [place], Dr. Menchaca Other Provider Aaliyah TEIXEIRA, Dr. Crabtree Other Provider Jodi TEIXEIRA, Dr. Urbano Other Provider Austin [place], Dr. Dc Other Provider Corby TEIXEIRA, Dr. Barraza Other Provider Jamey TEIXEIRA, Dr. Holcomb Other Provider [phone] Jaleesa TEIXEIRA, Dr. Huang Paul Attending Provider Mani [place], Dr. Cruz Attending Provider Jaleesa TEIXEIRA, Dr. Huang Paul Referring Provider Jaleesa TEIXEIRA, Dr. Huang Paul Other Provider Lissett [place], Dr. Ridley Attending Provider West GOLF INSTRUCTOR-C, Martha Attending Provider CARO GOLF INSTRUCTOR-C, OLEG Primary Care Provider Benny TEIXEIRA, Dr. Britton Attending Provider [phone] Benny TEIXEIRA, Dr. Britton Referring Provider Dr. Eva Marie DO Emergency Provider Macho TEIXEIRA, Dr. Akins Admit Provider Macho TEIXEIRA, Dr. Akins Other Provider Angel TEIXEIRA, Dr. Ortega Attending Provider Unavailbinh Villafuerte MD, Dr. Ladd Other Provider Angel TEIXEIRA, Dr. Ortega Other Provider Unavailable Angel TEIXEIRA, Dr. Ortega Referring Provider Unavailbinh Dang MD, Dr. Lara Attending Provider Alli TEIXEIRA, Dr. Valentino Attending Provider Dr. Wilberto Villafuerte MD Attending Provider Dr. Wliberto Villafuerte MD Referring Provider Suman TEIXEIRA, Dr. Thompson Primary Care Provider Suman TEIXEIRA, Dr. Thompson Referring Provider Gumaro GOLF INSTRUCTOR-C, Gris Dominguez Attending Provider Macho TEIXEIRA, Dr. Akins Referring Provider Suman TEIXEIRA, Dr. Thompson Attending Provider Dr. Marco Hoffman DO Emergency Provider Yasmin [place], Dr. Lara Attending Provider Gumaro GOLF INSTRUCTOR-C, Gris Dominguez Referring Provider Suman TEIXEIRA, Dr. Thompson Primary Care Provider [phone] Suman TEIXEIRA, Dr. Thompson Referring Provider Noy TEIXEIRA, Dr. Ladd Attending Provider Noy TEIXEIRA, Dr. Ladd Referring Provider CARO GOLF INSTRUCTOR-C, [place] Primary Care Provider Benny TEIXEIRA, Dr. Britton Attending Provider [phone] Benny TEIXEIRA, Dr. Britton Referring Provider [phone] Benny TEIXEIRA, Dr. Britton Attending Provider [phone] Benny TEIXEIRA, Dr. Britton Referring Provider [phone] CARO GOLF INSTRUCTOR-C, [place] Primary Care Provider Suman TEIXEIRA, Dr. Thompson Primary Care Provider [phone] Suman TEIXEIRA, Dr. Thompson Referring Provider Dawrin TEIXEIRA, Dr. Esparza Other Provider Milana TEIXEIRA, Dr. Peck Other Provider Dr. Alexi Roblero MD Other Provider Dr. Anthony Singleton DO Other Provider Clinton TEIXEIRA, Dr. Jordan Serra Other Provider Mike TEIXEIRA, Dr. Dsouza Other Provider [phone] Avi TEIXEIRA, Dr. Esteban Other Provider Raymond TEIXEIRA, Dr. Chow Other Provider Pauly TEIXEIRA, Dr. Wong Other Provider Lyle TEIXEIRA, Dr. Cochran Other Provider Otis TEIXEIRA, Dr. Rowland Other Provider [phone] Steve TEIXEIRA, Dr. Johnson Other Provider Edward TEIXEIRA, Dr. Corbett Other Provider Unavailshalom Dugan MD, Dr. Burrell Other Provider Alberta TEIXEIRA, Dr. Meyer Other Provider Sha TEIXEIRA, Dr. Boo Other Provider [phone] Ava TEIXEIRA, Dr. Mejia Other Provider Arianna [place], Dr. Menchaca Other Provider Aaliyah TEIXEIRA, Dr. Crabtree Other Provider Jodi TEIXEIRA, Dr. Urbano Other Provider Austin [place], Dr. Dc Other Provider Corby TEIXEIRA, Dr. Barraza Other Provider [phone] Jamey TEIXEIRA, Dr. Holcomb Other Provider Mani [place], Dr. Cruz Attending Provider [phone] CARO GOLF INSTRUCTOR-C, OLEG Primary Care Provider Dr. Terry Singh DO Emergency Provider Aron TEIXEIRA, Dr. Duffy Admit Provider [phone] Aron TEIXEIRA, Dr. Duffy Attending Provider Aron TEIXEIRA, Dr. Duffy Other Provider [phone] Chela ETIXEIRA, Dr. Sweet Other Provider Ryan [place], Dr. Jordan Oleary Other Provider [phone] Manasa TEIXEIRA, Dr. Wrgiht Other Provider Perez TEIXEIRA, Dr. Iqbal Other Provider [phone] Bhupendra GOLF INSTRUCTOR-C, Linda Other Provider Unavailabl jaclyn Greenberg GOLF INSTRUCTOR-C, Katelynn Other Provider Jayesh HILARIO, Ashleigh Other Provider Trevor TEIXEIRA, Dr. Kelley Attending Provider Suman TEIXEIRA, Dr. Thompson Primary Care Provider [phone] Suman TEIXEIRA, Dr. Thompson Referring Provider CARO GOLF INSTRUCTOR-C, OLEG Primary Care Provider Suman TEIXEIRA, Dr. Thompson Primary Care Provider Gumaro GOLF INSTRUCTOR-C, Gris Dominguez Attending Provider Suman TEIXEIRA, Dr. Thompson Referring Provider Marcus HILARIO, Elizabeth M Attending Provider Angel TEIXEIRA, Dr. Ortega Referring Provider Unavaila seth Ortiz MD, Dr. Ortega Other Provider Unavailable Darwin TEIXEIRA, Dr. Esparza Other Provider Milana TEIXEIRA, Dr. Peck Other Provider Osbaldo TEIXEIRA, Dr. Truong Other Provider [phone] Mani [place], Dr. Cruz Attending Provider Dr. Anthony Singleton DO Other Provider Clinton TEIXEIRA, Dr. Jordan Serra Other Provider Mike TEIXEIRA, Dr. Dsouza Other Provider [phone] Avi TEIXEIRA, Dr. Esteban Other Provider Raymond TEIXEIRA, Dr. Chow Other Provider [phone] Pauly TEIXEIRA, Dr. Wong Other Provider Lyle TEIXEIRA, Dr. Cochran Other Provider Dr. Kashif Berg MD Other Provider Dr. Elizabeth Wilson MD Other Provider Dr. Aric Leon MD Other Provider Unavailabl jaclyn Dugan MD, Dr. Burrell Other Provider Alberta TEIXEIRA, Dr. Meyer Other Provider Sha TEIXEIRA, Dr. Boo Other Provider Ava TEIXEIRA, Dr. Mejia Other Provider Arianna [place], Dr. Menchaca Other Provider [phone] Aaliyah TEIXEIRA, Dr. Crabtree Other Provider [phone] Kevin Zapata MD, Dr. Urbano Other Provider [phone] Austin [place], Dr. Dc Other Provider Corby TEIXEIRA, Dr. Barraza Other Provider Jamey TEIXEIRA, Dr. Holcomb Other Provider Tobi Zapata Referring Unavailable Tobi Zapata Attending Unavailable Suman, Donna Primary Care Unavailable Wilberto Villafuerte Referring Unavailable Wilberto Villafuerte Attending Unavailable Suman, Donna Primary Care Unavailable Wilberto Villafuerte Referring Unavailable Wilberto Villafuerte Attending Unavailable Suman, Donna Primary Care Unavailable Mable Pritchard Admitting Unavailable Suman, Donna Primary Care Unavailable Mable Pritchard Attending Unavailable Mable Pritchard Consulting Unavailable Khai Galeana Attending Unavailable Huang Lazcano Referring Unavailable Suman, Donna Primary Care Unavailable Jordan Mendoza Admitting Unavailable Isaias Granados Consulting Unavailable Cisco Cortés Consulting Unavailable Alexi Roblero Consulting Unavailable Anthony Singleton Consulting Unavailable Jordan Alonzo Consulting Unavailable Meet Mckeon Consulting Unavailable Carlito Cárdenas Consulting Unavailable Claudine Andrade Consulting Unavailab Marvin Lieberman Consulting Unavailable Dimas Alvarenga Consulting Unavailable Kashif Berg Consulting Unavailable Elizabeth Wilson Consulting Unavailable Alnicko Lamitalia Consulting Unavailable Ritchie Ashanti Consulting Unavailable Alberta, Mitch Consulting Unavailable Rajeev Dalton Consulting Unavailable Roberto Escalante Consulting Unavailable Nikolai Keller Consulting Unavailable Leyda Fischer Consulting Unavailable Yolie Zapata Consulting Unavailable Dao Avila Consulting Unavailable Madi Tavarez Consulting Unavailable Zhang Concepcion Consulting Unavailable Jordan Mendoza Consulting Unavailable Huang Lazcano Consulting Unavailable Suman, Donna Primary Care Unavailable Prabha Monte Attending Unavailable Suman, Donna Referring Unavailable Suman, Donna Primary Care Unavailable Aron Clive Attending Unavailable Aron Clive Admitting Unavailable Aron, Clive Consulting Unavailable Isaias Granados Consulting Unavailable Milana, Cisco Consulting Unavailable Alexi Roblero Consulting Unavailable Anthony Singleton Consulting Unavailable Jordan Alonzo Consulting Unavailable Meet Mckeon Consulting Unavailable Avi, Carlito Consulting Unavailable Habtetrang, Claudine Consulting Unavailab le Dand, Marvin Consulting Unavailable Dimas Alvarenga Consulting Unavailable Kashif Berg Consulting Unavailable Elizabeth Wilson Consulting Unavailable Aric Leon Consulting Unavailable Ashanti Dugan Consulting Unavailable Alberta, Mitch Consulting Unavailable Rajeev Dalton Consulting Unavailable AvaRoberto nogueira Consulting Unavailable Nikolai Keller Consulting Unavailable Leyda Fischer Consulting Unavailable Yolie Zapata Consulting Unavailable Dao Avila Consulting Unavailable Madi Tavarez Consulting Unavailable Zhang Concepcion Consulting Unavailable Kee [place] Consulting Unavailable Suman, Donna Primary Care Unavailable Marco Hoffman Attending Unavailable Suman, Donna Primary Care Unavailable Gris Naik Referring Unavailable Gris Naik Attending Unavailable Anthony Singleton Attending Unavailable Gris Naik Referring Unavailable Suman, Donna Primary Care Unavailable Gris Naik Attending Unavailable Wilberto Villafuerte Attending Unavailable Suman, Donna Primary Care Unavailable PraTobi sandoval Referring Unavailable PraTobi sandoval Attending Unavailable Suman, Donna Primary Care Unavailable Wilberto Villafuerte Referring Unavailable Wilberto Villafuerte Attending Unavailable Suman, Donna Primary Care Unavailable Suman, Donna Primary Care Unavailable SumanDonna Referring Unavailable Donna Will Attending Unavailable PraTobi sandoval Referring Unavailable PIÑA, OLEG Primary Care Unavailable Tobi Zapata Attending Unavailable Jordan Ortiz Attending Unavailable Wilberto Villafuerte Consulting Unavailable Jordan Ortiz Consulting Unavailable Anthony Singleton Attending Unavailable Jordan Ortiz Referring Unavailable Isaias Granados Consulting Unavailable Milana, Cisco Consulting Unavailable Alexi Roblero Consulting Unavailable Anthony Singleton Consulting Unavailable Jordan Alonzo Consulting Unavailable Meet Mckeon Consulting Unavailable Avi, Carlito Consulting Unavailable Kyungtetrang, Claudine Consulting Unavailab higinio Dand, Marvin Consulting Unavailable Alvarenga, Dimas Consulting Unavailable Berg, Kashif Consulting Unavailable Steve, Elizabeth Consulting Unavailable Aljundi, Lamia Consulting Unavailable Dugan, Ashanti Consulting Unavailable Alberta, Mitch Consulting Unavailable Irukulla, Rajeev Consulting Unavailable Ava, Roberto Consulting Unavailable Dhesi, Nikolai Consulting Unavailable Aaliyah, Leyda Consulting Unavailable [place], [place] Consulting Unavailable Fernstrom, Dao Consulting Unavailable Corby, Madi Consulting Unavailable Zhang Concepcion Consulting Unavailable Mable Pritchard Admitting Unavailable Jordan Ortiz Attending Unavailable Suman, Donna Primary Care Unavailable Mable Pritchard Consulting Unavailable Wilberto Villafuerte Consulting Unavailable Huang Lazcano Attending Unavailable Suman, Donna Primary Care Unavailable Jordan Mendoza Admitting Unavailable Isaias Granados Consulting Unavailable Cisco Cortés Consulting Unavailable Alexi Roblero Consulting Unavailable Anthony Singleton Consulting Unavailable Jordan Alonzo Consulting Unavailable Meet Mckeon Consulting Unavailable Carlito Cárdenas Consulting Unavailable Claudine Andrade Consulting Unavailab le Danshefali, Marvin Consulting Unavailable Alvarenga, Dimas Consulting Unavailable Berg, [employer] Consult[employer] Unavailable Steve, Elizabeth Consulting Unavailable Aljundi, Lamia Consulting Unavailable Dugan, Ashanti Consulting Unavailable Alberta, Mitch Consulting Unavailable Irukulla, Rajeev Consulting Unavailable Ava, Roberto Consulting Unavailable Dhesi, Nikolai Consulting Unavailable Fischer, Sujoy Consulting Unavailable [place], Soleyah Consulting Unavailable Justinnstrom, Dao Consulting Unavailable Corby, Madi Consulting Unavailable Zhang Cnocepcion Consulting Unavailable Jordan Mendoza Consulting Unavailable Marco Dang Attending Unavailable Mable Pritchard Referring Unavailable Suman, Donna Primary Care Unavailable Chicho Carson Attending Unavailshalom Will, Donna Primary Care Unavailable Gris Naik Referring Unavailable Anthony Singleton Attending Unavailable Suman, Donna Primary Care Unavailable Suman, Donna Primary Care Unavailable Warren Murray Attending Unavailable Tobi Zapata Attending Unavailable Suman, Donna Primary Care Unavailable Suman, Donna Referring Unavailable Suman, Donna Primary Care Unavailable West GOLF INSTRUCTOR, Martha Attending Unavailable Donna Will Referring Unavailable Suman, Donna Primary Care Unavailable Gris Naik Attending Unavailable Suman, Donna Referring Unavailable Elizabeth Mayfield Attending Unavail able Suman, Donna Referring Unavailable Suman, Donna Primary Care Unavailable Suman, Donna Attending Unavailable Suman, Donna Primary Care Unavailable Suman, Donna Primary Care Unavailable SumanPageen Attending Unavailable Prajaime, Tobi Attending Unavailable Suman, Donna Primary Care Unavailable Usman, Donna Referring Unavailable Suman, Donna Primary Care Unavailable SumanDonna Attending Unavailable Prajaime, Tobi Attending Unavailable Suman, Donna Primary Care Unavailable Suman, Donna Referring Unavailable Suman, Donna Primary Care Unavailable Donna Will Attending Unavailable Gris Naik Attending Unavailable Suman, Donna Primary Care Unavailable Suman, Donna Referring Unavailable Khai Galeana Attending Unavailable Suman, Donna Primary Care Unavailable Suman, Donna Referring Unavailable Suman, Donna Primary Care Unavailable Elizabeth Mayfield Attending Unavail able Suman, Donna Referring Unavailable Jordan Davis Consulting Unavailable Adriana Goel Consulting Unavailable Farida Todd Consulting Unavailable Linda Huizar Consulting Unavailable Neal GOLF INSTRUCTOR, Katelynn Consulting Unavailable Jayesh, Ashleigh Consulting Unavailable Jordan Mendoza Attending Unavailable Huang Lazcano Attending Unavailable Suman, Donna Primary Care Unavailable Isaias Granados Consulting Unavailable Aron, Clive Attending Unavailable Aron, Clive Admitting Unavailable Cisco Cortés Consulting Unavailable Alexi Roblero Consulting Unavailable Anthony Singleton Consulting Unavailable Jordan Alonzo Consulting Unavailable Meet Mckeon Consulting Unavailable Carlito Cárdenas Consulting Unavailable Claudine Andrade Consulting Unavailab Marvin Lieberman Consulting Unavailable Dimas Alvarenga Consulting Unavailable Kashif Berg Consulting Unavailable Elizabeth Wilson Consulting Unavailable Aric Leon Consulting Unavailable Ashanti Dugan Consulting Unavailable Mitch Pinzon Consulting Unavailable Rajeev Dalton Consulting Unavailable Roberto Escalante Consulting Unavailable Jennifer Kellerkhdeep Consulting Unavailable Leyda Fischer Consulting Unavailable Yolie Zapata Consulting Unavailable Dao Avila Consulting Unavailable Madi Tavarez Consulting Unavailable Zhang Concepcion Consulting Unavailable Chela, Kee Consulting Unavailable RyanJordan anaya Consulting Unavailable Manasa, Adriana Consulting Unavailable Todd, Farida Consulting Unavailable Bhupendra, Linda Consulting Unavailable Neal GOLF INSTRUCTOR, Katelynn Consulting Unavailable Masci, Ashleigh Consulting Unavailable Gris Naik Attending Unavailable Suman, Donna Primary Care Unavailable Gris Naik Referring Unavailable Suman, Donna Primary Care Unavailable Ashok GOLF INSTRUCTOR, More Attending Unavailable Ashok GOLF INSTRUCTOR, More Referring Unavailable Tobi Zapata Attending Unavailable Suman, Donna Primary Care Unavailable Suman, Donna Referring Unavailable Gris Naik Attending Unavailable Suman, Donna Primary Care Unavailable Suman, Donna Referring Unavailable Wilberto Villafuerte Referring Unavailable Wilberto Villafuerte Attending Unavailable Suman, Donna Primary Care Unavailable RuGris tilley M Attending Unavailable Suman, Donna Primary Care Unavailable Gris Naik Referring Unavailable Suman TEIXEIRA, Dr. Thompson Primary Care Physician Dr. Terry Singh DO Emergency Department Physic gely Aron TEIXEIRA, Dr. Duffy Admitting Physician Aron TEIXEIRA, Dr. Duffy Attending Physician Darwin TEIXEIRA, Dr. Esparza Nurse Practitioner [phone] Milana TEIXEIRA, Dr. Peck Nurse Practitioner [phone] Osbaldo TEIXEIRA, Dr. Truong Nurse Practitioner Dr. Anthony Singleton DO Nurse Practitioner [phone] Clinton TEIXEIRA, Dr. Jordan Serra Nurse Practitioner [phone] Mike TEIXEIRA, Dr. Dsouza Nurse Practitioner Avi TEIXEIRA, Dr. Esteban Nurse Practitioner Raymond TEIXEIRA, Dr. Chow Nurse Practitioner Pauly TEIXEIRA, Dr. Wong Nurse Practitioner Lyle TEIXEIRA, Dr. Cochran Nurse Practitioner Otis TEIXEIRA, Dr. Rowland Nurse Practitioner [phone] Steve TEIXEIRA, Dr. Johnson Nurse Practitioner [phone] Edward TEIXEIRA, Dr. Corbett Nurse Practitioner Unavail wilbert Dugan MD, Dr. Burrell Nurse Practitioner Alberta TEIXEIRA, Dr. Meyer Nurse Practitioner Sha TEIXEIRA, Dr. Boo Nurse Practitioner Ava TEIXEIRA, Dr. Mejia Nurse Practitioner [phone] Arianna [place], Dr. Menchaca Nurse Practitioner Aaliyah TEIXEIRA, Dr. Crabtree Nurse Practitioner [phone] Jodi TEIXEIRA, Dr. Urbano Nurse Practitioner Austin [place], Dr. Dc Nurse Practitioner [phone] Corby TEIXEIRA, Dr. Barraza Nurse Practitioner [phone] Jamey TEIXEIRA, Dr. Holcomb Nurse Practitioner Chela TEIXEIRA, Dr. Sweet Nurse Practitioner Ryan [place], Dr. Jordan Oleary Nurse Practitioner Manasa TEIXEIRA, Dr. Wright Nurse Practitioner [phone] Perez TEIXEIRA, Dr. Iqbal Nurse Practitioner Bhupendra GOLF INSTRUCTOR-C, Linda Nurse Practitioner [facility] able Neal GOLF INSTRUCTOR-C, Katelynn Nurse Practitioner Ashleigh Mahajan Nurse Practitioner Aron TEIXEIRA, Dr. Duffy Nurse Practitioner Trevor TEIXEIRA, Dr. Kelley Attending Physician Suman TEIXEIRA, Dr. Thompson Referring Provider Benny TEIXEIRA, Dr. Britton Attending Physician Suman TEIXEIRA, Dr. Thompson Attending Physician Gumaro BOSS-CGris Attending Physician Elizabeth Mayfield Attending Physician Gumaro ROWELLGris Referring Provider Dr. Tobi Zapata MD Referring Provider [phone] CARO ROWELL, OLEG Primary Care Physician [phone] Allergies Allergy Classification Reported Allergen(s) Allergy Type Date of Onset Reaction(s) Facility (5 sources) Famotidine Drug Allergy 2 Diarrhea [facility] Work Phone: (20 sources) levoFLOXacin Drug Allergy 2 dizziness, diarrhea, dizziness, GI upset, weakness [facility] (1 source) levoFLOXacin Drug Allergy 5 [facility] Repository Medications Current Medications Medication Drug Class(es) Dates Sig (Normalized) Sig (Original) acetaminophen 500 mg oral tablet (20 sources) Start: 05-16-2021 take 1000 mg by mouth every six hours as needed Acetaminophen Active 1000 MG PO EVERY 6 HOURS NEEDED 0 May 16, 2021 8:24pm Start: 05-04-2021 End: 05-16-2021 [id number] 200 actuat albuter ol 0.09 mg/actuat metered dose inhaler (20 sources) beta2-Adrenergic Agonist Start: 09-24-2024 Start: 10-21-2022 End: 09-19-2023 Start: 10-21-2022 End: 01-13-2023 Start: 06-25-2022 End: 09-13-2022 Start: 06-25-2022 End: 09-13-2022 take 2.5 mg by inhalation every six hours Albuterol Sulfate Discontinued 2.5 MG INHALATION EVERY 6 HOURS 180 June 24, 2022 11:00pm September 13, 2022 10:45am Start: 06-25-2022 End: 09-13-2022 take 2.5 mg by inhalation every six hours Albuterol Sulfate Discontinued 2.5 MG INHALATION EVERY 6 HOURS June 25, 2022 12:00am September 13, 2022 11:45am Start: 06-25-2022 take 2.5 mg by inhal ation every six hours Albuterol Sulfate Active 2.5 MG INHALATION EVERY 6 HOURS June 25, 2022 12:00am Start: 04-11-2021 End: 03-23-2022 take 1 puff(s) by inhalation every six [...] 11, 2021 12:00am May 16, 2021 7:24pm albuterol 0.833 mg/ml / ipratropium bromide 0.167 mg/ml inhalation solution (20 sources) Anticholinergic, beta2-Adrenergic Agonist Start: 09-19-2023 End: 11-26-2024 Start: 06-18-2021 End: 10-21-2022 Start: 06-18-2021 End: 10-21-2022 Start: 06-18-2021 End: 10-21-2022 take 1 mL by inhalation every four hours as needed Ipratropium-Albuterol Discontinued 3 ML INHALATION EVERY 4 HOURS NEEDED 180 June 25, 2022 8:18am October 21, 2022 10:21am bumetanide 0.5 mg oral table t (20 sources) Loop Diuretic Start: 12-17-2024 Start: 12-17-2024 Start: 12-17-2024 Start: 09-16-2024 End: 12-17-2024 Start: 08-25-2024 End: 09-16-2024 carvedilol 6.25 mg oral tablet (20 sources) alpha-Adrenergic Avinash, beta-Adrenergic Avinash Start: 10-08-2024 Start: 06-05-2023 End: 10-08-2024 Start: 06-05-2023 cholecalciferol 0.05 mg oral capsule (20 sources) Vitamin D Start: 06-28-2024 Start: 07-17-2020 End: 09-13-2022 docusate sodium 50 mg / larry osides, half-way 8.6 mg oral tablet (20 sources) Start: 08-25-2024 Start: 03-21-2023 End: 09-15-2023 Start: 03-21-2023 End: 03-27-2023 empagliflozin 10 mg oral tab let (20 sources) Sodium-Glucose Cotransporter 2 Inhibitor Start: 03-16-2024 End: 11-10-2024 Start: 06-05-2023 End: 12-03-2023 Start: 06-05-2023 finasteride [...] 15, 2019 1:00am April 28, 2019 9:16am Insulin Glargine-Yfgn (15 sources) Start: 06-25-2024 Start: 03-08-2024 End: 06-25-2024 Start: 03-03-2024 End: 03-08-2024 Start: 12-24-2023 End: 03-03-2024 Start: 11-24-2023 End: 12-24-2023 Multivitamin preparation (20 sources) Start: 09-13-2022 take 1 tablet by mouth once daily Multivitamin Active 1 TABLET PO DAILY September 12, 2022 11:00pm Start: 09-13-2022 take 1 tablet by lupe once daily Multivitamin Active 1 TABLET PO [...] (20 sources) Proton Pump Inhibitor Start: 06-28-2024 End: 08-25-2024 Start: 09-04-2022 End: 06-22-2024 Start: 10-26-2021 End: 08-14-2022 Start: 05-04-2021 End: 06-21-2021 spironolactone 25 mg oral ta blet (20 sources) Aldosterone Antagonist Start: 08-25-2024 End: 10-08-2024 Start: 09-15-2023 End: 09-24-2023 tamsulosin hydrochloride 0.4 mg oral capsule (20 sources) alpha-Adrenergic Avinash Start: 08-14-2022 vitamin b12 1 mg oral capsule (9 sources) Vitamin B12 Start: 01-29-2021 take 1000 ug by mouth once daily Cyanocobalamin (Vitamin B-12) Active 1000 MCG PO DAILY January 29, 2021 1:00am Completed/Discontinued Medications Medication Drug Class(es) Dates Sig (Normalized) Sig (Original) amiodarone hydrochloride 200 mg oral tablet (20 sources) Antiarrhythmic Start: 03-21-2023 End: 04-03-2023 Start: 03-21-2023 End: 04-03-2023 amoxicillin 875 mg / clavula karen 125 mg oral tablet (20 sources) Penicillin-class Antibacterial Start: 07-08-2024 End: 07-27-2024 Start: 03-21-2023 End: 03-27-2023 Start: 02-16-2022 End: 02-27-2022 Start: 10-02-2021 End: 10-09-2021 Start: 04-26-2021 End: 05-04-2021 Start: 06-23-2020 End: 07-17-2020 Start: 06-23-2020 End: 07-17-2020 take 1 tablet by mouth every eight hours Amoxicillin-Pot Clavulanate Discontinued 1 TABLET PO Q8H June 22, 2020 11:00pm July 17, 2020 10:39am apixaban 5 mg oral tablet (20 sources) [...] October 09, 2021 1:20pm Start: 04-21-2021 End: 10-08-2024 Start: 04-21-2021 End: 10-09-2021 Start: 04-21-2021 End: 10-01-2021 take 40 mg by mouth at bedtime Atorvastatin Discontinu ed 40 MG PO AT BEDTIME 90 June 21, 2021 11:35am October 01, 2021 5:48pm Start: 05-22-2016 End: 09-12-2020 Start: 05-22-2016 End: 09-12-2020 Start: 05-22-2016 End: 09-12-2020 take 40 mg by mouth at bedtime Atorvastatin Discontinu ed 40 MG PO AT BEDTIME April 13, 2020 12:04pm September 12, 2020 11:35am azithromycin 500 mg oral tab let (20 sources) Macrolide Antimicrobial Start: 03-02-2023 End: 03-16-2023 Start: 10-26-2021 take 500 mg by mouth once daily Azithromycin Active 500 MG PO DAILY 2 October 26, 2021 12:00am Start: 06-26-2020 End: 07-17-2020 Start: 06-26-2020 End: 07-17-2020 Start: 06-26-2020 End: 07-17-2020 Azithromycin Discontinued 0 PO .COMPLEX 6 June 25, 2020 11:00pm July 17, 2020 10:39am take 500 mg today (day 1), then 250 mg for 4 days (days 2-5) PO budesonide 0.5 mg/ml inhalat ion suspension (20 sources) Corticosteroid Start: 06-05-2022 End: 09-24-2024 Start: 06-05-2022 End: 11-15-2022 Start: 06-05-2022 End: [...] End: 10-01-2021 cefdinir 300 mg oral capsule (20 sources) Cephalosporin Antibacterial Start: 11-12-2023 End: 11-24-2023 Start: 12-11-2021 take 300 mg by mouth twice hogn ly Cefdinir Active 300 MG PO TWICE [...] guaiFENesin 1200 mg extended release oral tablet (20 sources) Uncompetitive X-ducbmc-X-aspartate Receptor Antagonist, Sigma-1 Agonist Start: 11-11-2023 End: 03-03-2024 doxycycline hyclate 100 mg oral tablet (20 sources) Tetracycline-class Drug Start: 06-25-2021 End: 07-17-2021 Start: 04-04-2021 End: 04-11-2021 escitalopram 10 mg oral tabl et (20 sources) Serotonin Reuptake Inhibitor Start: 05-04-2021 End: 11-29-2024 famotidine 20 mg oral tablet (20 sources) Histamine-2 Receptor Antagonist Start: 03-15-2019 End: 09-28-2019 ferrous sulfate 325 mg oral tablet (20 sources) Start: 07-18-2020 End: 04-05-2024 Start: 07-18-2020 End: 09-13-2022 Start: 07-18-2020 End: [...] 01-29-2021 fluconazole 100 mg oral tabl et (20 sources) Azole Antifungal Start: 11-24-2023 End: 03-03-2024 fluticasone propionate 0.05 mg/actuat metered dose nasal spray (20 sources) Corticosteroid Start: 09-13-2019 End: 09-28-2019 Start: 09-13-2019 End: 09-28-2019 Fluticasone Propionate Disco ntinued 1 SPRAY INTRANASAL DAILY September 12, 2019 11:00pm September 28, 2019 1:09pm furosemide 40 mg oral tablet (20 sources) Loop Diuretic Start: 03-04-2023 End: 08-25-2024 Start: 11-17-2022 End: 01-28-2023 Start: 09-03-2021 take [...] Soln Discontinued 1 MG IM ONE TIME May 04, 2021 12:00am May 16, 2021 7:25pm 12 hr guaiFENesin 1200 mg ex tended release oral tablet (20 sources) Start: 06-25-2024 End: 06-28-2024 Start: 05-07-2023 End: 11-11-2023 Start: 05-07-2023 Start: 03-16-2023 End: 03-21-2023 Start: 03-16-2023 End: 03-21-2023 Start: 03-02-2023 End: 05-07-2023 Start: 12-11-2021 take 1 tablet by lupe th twice daily, then take 1 tablet by mouth every twelve hours Guaifenesin (Mucus Relief Er) 1,200 mg Tablet Extended Release 12hr Active 1200 MG PO TWICE A DAY 14 December 10, 2021 11:00pm 3 ml insulin aspart, human 1 00 unt/ml pen injector (20 sources) Insulin Analog Start: 03-22-2023 End: 09-16-2024 Start: 03-22-2023 3 ml insulin glargine 100 [...] mL by inhalation every six hours Ipratropium [place] Discontinued 2.5 ML INHALATION EVERY 6 HOURS [...] End: 05-18-2024 Start: 03-09-2024 End: 03-16-2024 Start: 05-07-2023 End: 05-12-2023 Start: 07-17-2021 End: 07-26-2021 lisinopril 2.5 mg oral table t (20 sources) Angiotensin Converting Enzyme Inhibitor Start: 11-17-2022 End: 03-02-2023 losartan potassium 25 mg ora l tablet (20 sources) Angiotensin 2 Receptor Avinash Start: 05-22-2016 End: 10-03-2020 menthol 0.0044 mg/mg / zinc oxide 0.206 mg/mg topical ointment (20 sources) Start: 03-07-2023 End: 07-08-2024 Start: 05-04-2021 End: 05-16-2021 Menthol-Zinc Oxide (Calmosep [...] May 04, 2021 4:02pm Start: 05-04-2021 End: 05-16-2021 Start: 05-04-2021 End: 05-04-2021 Menthol-Zinc Oxide (Calmosep [...] Start: 04-29-2021 End: 11-04-2022 Start: 04-29-2021 End: 09-11-2023 take 7.5 mg by mouth at bedtime Mirtazapine (Remeron) 15 mg tablet Discontinued 7.5 MG PO AT BEDTIME 90 June 21, 2021 11:35am December 08, 2021 7:17pm Multivitamin,Ux-Cdjo-Viqgqkw s (20 sources) Start: 09-11-2013 End: 09-13-2019 take 1 tablet by mouth once daily Multivitamin,Ar-Dmsu-Zceicqwz Discontinued 1 TABLET PO DAILY September 11, 2013 1:21pm September 13, 2019 1:47pm Start: 09-11-2013 End: 09-13-2019 take 1 tablet by mouth once daily Multivitamin,Zt-Nwzn-Wiocjpzy Discontinu ed 1 TABLET PO DAILY September 10, 2013 11:00pm September 13, 2019 12:47pm Start: 09-11-2013 End: 09-13-2019 take 1 tablet by mouth once daily Multivitamin,Br-Yegi-Utvwhrcm Discontinu ed 1 TABLET PO DAILY September [...] 4 TIMES DAILY 0 April 26, 2021 1:00am April 26, 2021 [...] End: 05-18-2024 Start: 05-28-2023 End: 11-24-2023 Start: 05-07-2023 End: 05-12-2023 Start: 03-02-2023 End: 03-21-2023 Start: 02-16-2022 End: 02-27-2022 Start: 12-11-2021 take 40 mg by mouth at break st Prednisone Active 40 MG PO WITH [...] ml riTUXimab 10 mg/ml injection (20 sources) [id number]-puufukzc Cytolytic Antibody Start: 09-28-2019 End: 03-25-2021 rituximab [...] 29, 2021 1:00am May 16, 2021 8:26pm sucralfate 1000 mg oral tabl et (20 sources) Aluminum Complex Start: 09-04-2022 End: 02-28-2023 Start: 12-11-2021 Sucralfate Act crystal 1 GM PO 0700,1100,1600 90 December 11, 2021 12:00am Start: 10-26-2021 take 1 g by mouth fo ur times daily Sucralfate Active 1 GM PO 4 TIMES DAILY 120 30 October 26, 2021 12:00am Start: 05-04-2021 End: 06-22-2021 vancomycin 100 mg/ml injecta ble solution (20 sources) Glycopeptide Antibacterial Start: 07-20-2024 End: 07-27-2024 Start: 06-24-2024 End: 07-27-2024 Vancomycin In 0.9 % Sodium C hl [...] 29, 2021 1:00am May 04, 2021 12:00pm (20 sources) Start: 07-20-2024 End: 07-27-2024 Start: 07-20-2024 Start: 06-28-2024 End: 07-08-2024 Start: [...] 09-11-2013 End: 09-13-2019 Start: 09-11-2013 End: 09-13-2019 Problems Active Problems Problem Classification Problem Date Documented Da te Episodic/Chronic Acute and unspecified renal failure (20 sources) Acute renal failure syndrome; Translations: [Acute kidney failure, unspecified] 03-16-2023 Episodic Acute myocardial infarction (20 sources) Myocardial infarction; Translations: [Myocardial infarction type 2] 08-21-2024 Chronic Acute posthemorrhagic anemia (20 sources) Anemia due to blood loss; Translations: [Acute posthemorrhagic anemia] 03-29-2023 Episodic Asthma (20 sources) Asthma; Translations: [Unspecified asthma, uncomplicated] Chronic Cardiac dysrhythmias (20 sources) Atrial fibrillation; Translations: [Unspecified atrial fibrillation] 06-20-2024 Chronic Chronic kidney disease (20 sources) Chronic kidney disease stage 3; Translations: [Stage 3 chronic kidney disease] Onset: 5 11-15-2022 Chronic Chronic obstructive pulmonary disease and bronchiectasis (20 sources) Chronic obstructive lung disease; Translations: [Chronic obstructive pulmonary disease, unspecified] Onset: Chronic Chronic obstructive pulmonary disease and bronchiectasis (20 sources) Bronchitis; Translations: [Bronchitis, not specified as acute or chronic] 09-29-2021 Episodic Chronic ulcer of skin (20 sources) Pressure ulcer of buttock; Translations: [Pressure ulcer of unspecified buttock, unspecified stage] 03-31-2023 Chronic Congestive heart failure; nonhypertensive (20 sources) Heart failure; Translations: [Heart failure, unspecified] Onset: 5 11-15-2022 Chronic Coronary atherosclerosis and other heart disease (20 sources) Coronary arteriosclerosis; Translations: [Atherosclerotic heart disease of crow coronary artery without angina pectoris] Chronic Deficiency and other anemia (20 sources) Anemia; Translations: [Anemia, unspecified] 05-26-2021 Episodic Deficiency and other anemia (20 sources) Iron deficiency anemia; Translations: [Iron deficiency anemia, unspecified] 02-05-2022 Episodic Deficiency and other anemia (20 sources) Iron deficiency anemia, unspecified; Translations: [Iron deficiency anemia, unspecified] Onset: Episodic Deficiency and other anemia (20 sources) Anemia, unspecified; Translations: [Anemia, unspecified] Onset: Episodic Deficiency and other anemia (20 sources) Iron-refractory iron deficiency anemia; Translations: [Other iron deficiency anemias] 02-05-2022 Episodic Deficiency and other anemia (20 sources) Other iron deficiency anemias; Translations: [Other specified iron deficiency anemias] Onset: Episodic Deficiency and other anemia (20 sources) Macrocytic anemia; Translations: [Nutritional anemia, unspecified] 08-21-2024 Episodic Diabetes mellitus without complication (20 sources) Diabetes mellitus; Translations: [Type 2 diabetes mellitus without complications] Onset: Chronic Diabetes mellitus without complication (20 sources) Hyperglycemia; Translations: [Hyperglycemia, unspecified] Onset: Episodic Diseases of white blood cells (20 sources) Leukocytosis; Translations: [Elevated white blood cell count, unspecified] Chronic Disorders of lipid metabolism (20 sources) Hyperlipidemia; Translations: [Hyperlipidemia, unspecified] Onset: Chronic E Codes: Fall (20 sources) Fall; Translations: [Unspecified fall, initial encounter] 03-16-2023 Episodic Essential hypertension (20 sources) Essential hypertension; Translations: [Essential (primary) hypertension] Onset: Chronic Fluid and electrolyte disorders (20 sources) Acute hyperkalemia; Translations: [Hyperkalemia] 02-28-2023 Episodic Gastritis and duodenitis (20 sources) Gastritis; Translations: [Gastritis, unspecified, without bleeding] 09-29-2021 Episodic Gastrointestinal hemorrhage (20 sources) Gastrointestinal hemorrhage; Translations: [Gastrointestinal hemorrhage, unspecified] Onset: 2 Episodic Genitourinary symptoms and ill-defined conditions (20 [...] Translations: [Non-Hodgkin lymphoma, unspecified, unspecified site] Onset: 5 Chronic Non-Hodgkin`s lymphoma (20 sources) History of non-Hodgkins lymphoma; Translations: [Personal history of non-Hodgkin lymphomas] Episodic Nutritional deficiencies (20 sources) Vitamin D deficiency; Translations: [Vitamin D deficiency, unspecified] Onset: 5 Chronic Nutritional deficiencies (20 sources) Cobalamin deficiency; Translations: [Deficiency of other specified B group vitamins] Onset: 5 Episodic Other aftercare (3 sources) Patient encounter status; Translations: [Encounter for therapeutic drug level monitoring] 05-02-2023 Episodic Other aftercare (20 sources) Long-term current use of diuretic; Translations: [Encounter for therapeutic drug level monitoring] 05-02-2023 Episodic Other and unspecified benign neoplasm (20 sources) Polyp of colon; Translations: [Polyp of colon] 09-29-2021 Episodic Other circulatory disease (20 sources) Inferior vena cava filter in situ; Translations: [Presence of other vascular implants and grafts] Onset: 2 09-29-2021 Chronic Other circulatory disease (20 sources) Low blood pressure; Translations: [Hypotension, unspecified] 03-16-2023 Episodic Other circulatory disease (6 sources) Hypotension, unspecified; Translations: [Hypotension, unspecified] 03-16-2023 Episodic Other connective tissue disease (20 sources) Swelling of lower limb; Translations: [Other specified soft tissue disorders] 09-29-2021 Episodic Other connective tissue disease (8 sources) Other specified soft tissue disorders; Translations: [Swelling of limb] Onset: 5 Episodic Other gastrointestinal disorders (20 sources) Stool DNA-based colorectal cancer screening positive; Translations: [Other fecal abnormalities] 09-29-2021 Episodic Other gastrointestinal disorders (20 sources) Occult blood in stools; Translations: [Other fecal abnormalities] 04-05-2024 Episodic Other gastrointestinal disorders (2 sources) Other fecal abnormalities; Translations: [Other fecal abnormalities] [...] respiratory disease (20 sources) Hypoxemia; Translations: [Hypoxemia] Episodic Other lower respiratory disease (20 sources) Dyspnea, unspecified; Translations: [Other respiratory abnormalities] Episodic Other lower respiratory disease (20 sources) Dyspnea on exertion; Translations: [Other forms of dyspnea] 12-19-2021 Episodic Other lower respiratory disease (9 sources) Other forms of dyspnea; Translations: [Other respiratory abnormalities] Episodic Other lower respiratory disease (20 sources) History of chronic obstructive airway disease; Translations: [Personal history of other diseases of the respiratory system] 02-28-2023 Episodic Other lower respiratory disease (13 sources) Personal history of other diseases of the respiratory system; Translations: [Personal history of other diseases of respiratory system] 02-28-2023 Episodic Other lower respiratory disease (20 sources) Respiratory insufficiency; Translations: [Other abnormalities of breathing] 04-05-2024 Episodic Other nervous system disorders (20 sources) Disorder of brain; Translations: [Encephalopathy, unspecified] 02-24-2022 Chronic Other nervous system disorders (11 sources) Encephalopathy, unspecified; Translations: [Encephalopathy, unspecified] Chronic Other nervous system disorders (20 sources) Metabolic encephalopathy; Translations: [Metabolic encephalopathy] 11-19-2023 Chronic Other nutritional; endocrine; and metabolic disorders [...] Episodic Other nutritional; endocrine; and metabolic disorders (15 sources) Adult failure to thrive; Translations: [Adult failure to thrive] Episodic Other nutritional; endocrine; and metabolic disorders [...] specified abnormal findings of blood chemistry] Onset: 5 03-16-2023 Episodic Other upper respiratory infections (20 [...] Translations: [Pleural effusion, not elsewhere classified] Episodic Pulmonary heart disease (20 sources) Pulmonary embolism; Translations: [Other pulmonary embolism without acute cor pulmonale] Onset: 2 Episodic Residual codes; unclassified (12 sources) Daytime hypersomnia; Translations: [Hypersomnia, unspecified] 09-24-2024 Chronic Residual codes; unclassified (1 source) Hypersomnia, unspecified; Translations: [Hypersomnia, unspecified] Onset: Chronic Residual codes; unclassified (20 sources) Altered mental status; Translations: [Altered mental status, unspecified] 04-12-2021 Episodic Residual codes; unclassified (20 sources) Tobacco use and exposure - finding; Translations: [Tobacco use] 09-29-2021 Episodic Residual codes; unclassified (10 sources) Tobacco use; Translations: [Tobacco use disorder] Episodic Residual codes; unclassified (20 sources) Tobacco user; Translations: [Tobacco use] 09-29-2021 Episodic Residual codes; unclassified (20 sources) H/O: Disorder; Translations: [Personal history of other specified conditions] 02-27-2022 Episodic Residual codes; unclassified (6 sources) Personal history of other specified conditions; Translations: [Other specified conditions influencing health status] 02-27-2022 Episodic Respiratory failure; insufficiency; arrest (adult) (20 sources) [id number] respiratory failure; Translations: [Acute and chronic respiratory failure, unspecified whether with hypoxia or hypercapnia] Onset: Chronic Respiratory failure; insufficiency; arrest (adult) (20 sources) Acute respiratory failure; Translations: [Acute respiratory failure with hypoxia] Episodic Shock (20 sources) Hemorrhagic shock; Translations: [Other shock] 03-16-2023 Episodic Substance-related disorders (20 sources) Tobacco dependence in remission; 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, cigarettes, in remission] Onset: 5 02-27-2022 Chronic Syncope (20 sources) Syncope; Translations: [Syncope and collapse] 03-29-2023 Episodic Urinary tract infections (20 sources) Acute cystitis; Translations: [Acute cystitis without hematuria] 11-19-2023 Episodic Varicose veins of lower extremity (20 sources) Varicose veins of lower extremity; Translations: [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 complications] 09-29-2021 Episodic Viral infection (20 sources) Disease caused by 2019-nCoV; Translations: [COVID-19] Episodic Past or Other Problems Problem Classification Problem Date Documented Da te Episodic/Chronic Bacterial infection; unspecified site (20 sources) Bacteremia due to Methicillin resistant Staphylococcus aureus; Translations: [Bacteremia] Onset: 06-28-2024 06-22-2024 Episodic Coronary atherosclerosis and other heart disease (20 sources) Presence of coronary angioplasty implant and graft; Translations: [Percutaneous transluminal coronary angioplasty status] Onset: 09-24-2013 Episodic Nausea and vomiting (20 sources) Nausea and vomiting; Translations: [Nausea with vomiting, unspecified] Onset: 04-16-2024 04-05-2024 Episodic Other lower respiratory disease (1 source) Shortness of breath; Translations: [Shortness of breath] Onset: 06-30-2024 Episodic Other lower respiratory disease (1 source) Other abnormalities of breathing; Translations: [Other abnormalities of breathing] Onset: 04-16-2024 Episodic Pneumonia (except that caused by tuberculosis or sexually transmitted disease) (20 sources) Pneumonia; Translations: [Pneumonia, unspecified organism] Onset: 03-05-2024 Episodic Residual codes; unclassified (15 sources) Altered mental status, unspecified; Translations: [Altered mental status] Onset: 06-28-2024 Episodic Residual codes; unclassified (1 source) Illness, unspecified; Translations: [Illness, unspecified] Onset: 07-12-2024 Episodic Septicemia (except in labor) (20 sources) Septic shock; Translations: [Sepsis, unspecified organism] Onset: 06-28-2024 Episodic Results Test Name Value Interpretation Reference Range Facility Absolute lymphocyte countOrd ered By: Tobi Zapata on 12-06-2024 Lymphocytes Auto (Unsp spec) [#/Vol] 2.80 10*3/uL 0.83-4.51 [facility] Anion gap in Serum or Plasma Ordered By: Tobi Zapata on 12-06-2024 Anion gap [Moles/Vol] 15 mmol/L 5-15 [facility] Automated lymphocyte count a s percentage of total leukocytesOrdered By: Tobi Zapata on 12-06-2024 Lymphocytes/100 WBC Auto (Unsp spec) 25.0 % 19-41 [facility] BUN/creatinine ratioOrdered By: Tobi Zapata on 12-06-2024 Urea nitrogen/Creatinine [Mass ratio] 22.1 mg/mg High 10-20 [facility] Basophil percentageOrdered B y: Tobi Zapata on 12-06-2024 Basophils/100 WBC (Bld) 0.8 % 0-1 [facility] Bilirubin, totalOrdered By: Tobi Zapata on 12-06-2024 Bilirubin [Mass/Vol] 0.45 mg/dL 0.00-1.30 [facility] Carbon dioxide, total [Moles /volume] in Central venous bloodOrdered By: Tobi Zapata on 12-06-2024 CO2 [Moles/Vol] 26.7 mmol/L 21.0-32.0 [facility] Chloride assayOrdered By: Fabiana Zapata on 12-06-2024 Chloride [Moles/Vol] 97 mmol/L Low 98-108 [facility] Eosinophil percentageOrdered By: Tobi Zapata on 12-06-2024 Eosinophils/100 WBC (Bld) 4.1 % 0-5 [facility] Erythrocyte distribution wid th ratioOrdered By: Tobi Zapata on 12-06-2024 Erythrocyte distribution width (RBC) [Ratio] 17.9 % High 11.6-14.6 [facility] Erythrocyte distribution wid th standard deviationOrdered By: Tobi Zapata on 12-06-2024 Erythrocyte distribution width (RBC) [Ratio] 63.7 fl High 35.1-43.9 [facility] Erythrocyte sedimentation ra teOrdered By: Tobi Zapata on 12-06-2024 ESR (Bld) [Velocity] 21 mm/h High 0-20 [facility] Glomerular filtration rate ( GFR) estimation/1.73 sq m using serum, plasma, or whole bOrdered By: Tobi Zapata on 12-06-2024 GFR/1.73 sq M.predicted among non-blacks MDRD (S/P/Bld) [Vol rate/Area] 24 mL/min/{1.73_m2} Low >60 [facility] Hematocrit Auto (Bld) [Volum e fraction]Ordered By: Tobi Zapata on 12-06-2024 Hematocrit (Bld) [Volume fraction] 30.9 % Low 40-54 [facility] Hemoglobin A1c percentageOrd ered By: Donna Will on 12-06-2024 HbA1c (Bld) [Mass fraction] 11.6 % High <5.7 [facility] Hemoglobin measurementOrdere d By: Tobi Zapata on 12-06-2024 Hemoglobin (Bld) [Mass/Vol] 10.1 g/dL Low 13.0-16.5 [facility] Immature granulocytes/100 WB C Auto (Bld)Ordered By: Tobi Zapata on 12-06-2024 Immature granulocytes/100 WBC (Bld) 4.500 % High 0.0-0.9 [facility] Iron measurement (mass/mass) Ordered By: Tobi Zapata on 12-06-2024 Iron (Unsp spec) [Mass/Mass] 98 ug/dL 65-175 [facility] MCV (mean corpuscular volume ) determinationOrdered By: Tobi Zapata on 12-06-2024 MCV (RBC) [Entitic vol] 97.5 fL High 80-94 [facility] Magnesium measurement (mass/ volume)Ordered By: Tobi Zapata on 12-06-2024 Magnesium (Unsp spec) [Mass/Vol] 2.3 mg/dL High 1.5-2.2 [facility] Mean corpuscular hemoglobin (MCH) determinationOrdered By: Tobi Zapata on 12-06-2024 MCH (RBC) [Entitic mass] 31.9 pg 27.0-32.0 [facility] Monocyte percentageOrdered B y: Tobi Zapata on 12-06-2024 Monocytes/100 WBC (Bld) 10.2 % High 0-10 [facility] Neutrophil percentageOrdered By: Tobi Zapata on 12-06-2024 Neutrophils/100 WBC (Bld) 55.4 % 47-70 [facility] No Panel InformationOrdered By: Tobi Zapata on 12-06-2024 19 U/L <38 [facility] 158 ug/dL Low 228-428 [facility] Platelet countOrdered By: Fabiana Zapata on 12-06-2024 Platelets (Bld) [#/Vol] 282 10*3/uL 150-450 [facility] Potassium measurement (mass/ volume)Ordered By: Tobi Zapata on 12-06-2024 Potassium (Unsp spec) [Mass/Vol] 4.3 mmol/L 3.3-5.1 [facility] RBC Auto (Bld) [#/Vol]Ordere d By: Tobi Zapata on 12-06-2024 RBC (Bld) [#/Vol] 3.17 10*6/uL Low 4.6-6.2 [facility] Serum creatinine measurement (mass/volume)Ordered By: Tobi Zapata on 12-06-2024 Creatinine [Mass/Vol] 2.70 mg/dL High 0.70-1.20 [facility] Serum globulin measurementOr dered By: Tobi Zapata on 12-06-2024 Globulin (S) [Mass/Vol] 3.0 g/dL 2.2-4.2 [facility] Serum glucose measurement (m ass/volume)Ordered By: Tobi Zapata on 12-06-2024 Glucose [Mass/Vol] 229 mg/dL High 70-99 [facility] Serum or plasma C reactive p rotein measurement (mass/volume)Ordered By: Tobi Zapata on 12-06-2024 CRP [Mass/Vol] 5.31 mg/L High 0.0-3.0 [facility] Serum or plasma alanine barber otransferase (ALT) measurementOrdered By: Tobi Zapata on 12-06-2024 ALT [Catalytic activity/Vol] 27 U/L <47 [facility] Serum or plasma albumin yocasta urement (mass/volume)Ordered By: Tobi Zapata on 12-06-2024 Albumin [Mass/Vol] 4.3 g/dL 3.4-4.8 [facility] Serum or plasma albumin/glob ulin mass ratioOrdered By: Tobi Zapata on 12-06-2024 Albumin/Globulin [Mass ratio] 1.4 {ratio} 0.9-2.4 [facility] Serum or plasma alkaline justin sphatase measurementOrdered By: Tobi Zapata on 12-06-2024 ALP [Catalytic activity/Vol] 79 U/L 40-129 [facility] Serum or plasma calcium yocasta urement (mass/volume)Ordered By: Tobi Zapata on 12-06-2024 Calcium [Mass/Vol] 9.6 mg/dL 7.6-11.0 [facility] Serum or plasma erythropoiet in (EPO) measurement (units/volume)Ordered By: Tobi Zapata on 12-06-2024 Erythropoietin (EPO) Qn 27.1 mIU/mL High 2.6-18.5 [facility] Serum or plasma ferritin vasquez surement (mass/volume)Ordered By: Tobi Zapata on 12-06-2024 Ferritin [Mass/Vol] 247 ng/mL 37-417 [facility] Serum or plasma iron saturat ion measurement (mass fraction)Ordered By: Tobi Zapata on 12-06-2024 Iron saturation [Mass fraction] 38.2 % 9-55 [facility] Serum or plasma urea nitroge n measurement (mass/volume)Ordered By: Tobi Zapata on 12-06-2024 Urea nitrogen [Mass/Vol] 60 mg/dL High 4-19 [facility] Sodium levelOrdered By: Dimas Zapata on 12-06-2024 Sodium [Moles/Vol] 138 mmol/L 133-145 [facility] Total proteinOrdered By: Mikael Zapata on 12-06-2024 Protein [Mass/Vol] 7.3 g/dL 5.9-8.4 [facility] Vitamin B12 ser/plasOrdered By: Tobi Zapata on 12-06-2024 Cobalamin (Vitamin B12) [Mass/Vol] 895 pg/mL 180-914 [facility] White blood cell (WBC) count Ordered By: Tobi Zapata on 12-06-2024 WBC (Bld) [#/Vol] 11.2 10*3/uL High 4.4-11.0 [facility] Stool gastrointestinal hemog lobin detection by immunologic methodOrdered By: Tobi Zapata on 11-25-2024 Lower GI hemoglobin IA Ql (Stl) Positive Abnormal [facility] Anion gap in Serum or Plasma Ordered By: Donna Will on 09-24-2024 Anion gap [Moles/Vol] 14 mmol/L 5-15 [facility] BUN/creatinine ratioOrdered By: Donna Will on 09-24-2024 Urea nitrogen/Creatinine [Mass ratio] 36.0 mg/mg High 10-20 [facility] Carbon dioxide, total [Moles /volume] in Central venous bloodOrdered By: Donna Will on 09-24-2024 CO2 [Moles/Vol] 27.8 mmol/L 21.0-32.0 [facility] Chloride assayOrdered By: Toyin Will on 09-24-2024 Chloride [Moles/Vol] 103 mmol/L 98-108 [facility] Glomerular filtration rate ( GFR) estimation/1.73 sq m using serum, plasma, or whole bOrdered By: Donna Will on 09-24-2024 GFR/1.73 sq M.predicted among non-blacks MDRD (S/P/Bld) [Vol rate/Area] 39 mL/min/{1.73_m2} Low >60 [facility] Magnesium measurement (mass/ volume)Ordered By: Donna Will on 09-24-2024 Magnesium (Unsp spec) [Mass/Vol] 2.2 mg/dL 1.5-2.2 [facility] Natriuretic peptide.B prohor sena N-Terminal [Mass/volume] in Serum or PlasmaOrdered By: Donna Will on 09-24-2024 Natriuretic peptide.B prohormone N-Terminal [Mass/Vol] 4995 pg/mL High <1800 [facility] Potassium measurement (mass/ volume)Ordered By: Donna Will on 09-24-2024 Potassium (Unsp spec) [Mass/Vol] 4.9 mmol/L 3.3-5.1 [facility] Serum creatinine measurement (mass/volume)Ordered By: Donna Will on 09-24-2024 Creatinine [Mass/Vol] 1.78 mg/dL High 0.70-1.20 [facility] Serum glucose measurement (m ass/volume)Ordered By: Donna Will on 09-24-2024 Glucose [Mass/Vol] 266 mg/dL High 70-99 [facility] Serum or plasma calcium yocasta urement (mass/volume)Ordered By: Donna Will on 09-24-2024 Calcium [Mass/Vol] 9.4 mg/dL 7.6-11.0 [facility] Serum or plasma urea nitroge n measurement (mass/volume)Ordered By: Donna Will on 09-24-2024 Urea nitrogen [Mass/Vol] 64 mg/dL High 4-19 [facility] Sodium levelOrdered By: Paula Will on 09-24-2024 Sodium [Moles/Vol] 145 mmol/L 133-145 [facility] Vitamin B12 ser/plasOrdered By: Donna Will on 09-24-2024 Cobalamin (Vitamin B12) [Mass/Vol] 1005 pg/mL High 180-914 [facility] Absolute lymphocyte countOrd ered By: Tobi Zapata on 09-13-2024 Lymphocytes Auto (Unsp spec) [#/Vol] 2.82 10*3/uL 0.83-4.51 [facility] Anion gap in Serum or Plasma Ordered By: Tobi Zapata on 09-13-2024 Anion gap [Moles/Vol] 17 mmol/L High 5-15 [facility] Automated lymphocyte count a s percentage of total leukocytesOrdered By: Tobi Zapata on 09-13-2024 Lymphocytes/100 WBC Auto (Unsp spec) 27.6 % 19-41 [facility] BUN/creatinine ratioOrdered By: Tobi Zapata on 09-13-2024 Urea nitrogen/Creatinine [Mass ratio] 23.7 mg/mg High 10-20 [facility] Basophil percentageOrdered B y: Tobi Zapata on 09-13-2024 Basophils/100 WBC (Bld) 0.6 % 0-1 [facility] Bilirubin, totalOrdered By: Tobi Zapata on 09-13-2024 Bilirubin [Mass/Vol] 0.49 mg/dL 0.00-1.30 [facility] Carbon dioxide, total [Moles /volume] in Central venous bloodOrdered By: Tboi Zapata on 09-13-2024 CO2 [Moles/Vol] 28.5 mmol/L 21.0-32.0 [facility] Chloride assayOrdered By: Fabiana Zapata on 09-13-2024 Chloride [Moles/Vol] 97 mmol/L Low 98-108 [facility] Eosinophil percentageOrdered By: Tobi Zapata on 09-13-2024 Eosinophils/100 WBC (Bld) 4.8 % 0-5 [facility] Erythrocyte distribution wid th ratioOrdered By: Tobi Zapata on 09-13-2024 Erythrocyte distribution width (RBC) [Ratio] 17.0 % High 11.6-14.6 [facility] Erythrocyte distribution wid th standard deviationOrdered By: Tobi Zapata on 09-13-2024 Erythrocyte distribution width (RBC) [Ratio] 58.6 fl High 35.1-43.9 [facility] Glomerular filtration rate ( GFR) estimation/1.73 sq m using serum, plasma, or whole bOrdered By: Tobi Zapata on 09-13-2024 GFR/1.73 sq M.predicted among non-blacks MDRD (S/P/Bld) [Vol rate/Area] 31 mL/min/{1.73_m2} Low >60 [facility] Hematocrit Auto (Bld) [Volum e fraction]Ordered By: Tobi Zapata on 09-13-2024 Hematocrit (Bld) [Volume fraction] 31.9 % Low 40-54 [facility] Hemoglobin measurementOrdere d By: Tobi Zapata on 09-13-2024 Hemoglobin (Bld) [Mass/Vol] 10.3 g/dL Low 13.0-16.5 [facility] Immature granulocytes/100 WB C Auto (Bld)Ordered By: Tobi Zapata on 09-13-2024 Immature granulocytes/100 WBC (Bld) 1.900 % High 0.0-0.9 [facility] Iron measurement (mass/mass) Ordered By: Tobi Zapata on 09-13-2024 Iron (Unsp spec) [Mass/Mass] 104 ug/dL 65-175 [facility] MCV (mean corpuscular volume ) determinationOrdered By: Tobi Zapata on 09-13-2024 MCV (RBC) [Entitic vol] 95.2 fL High 80-94 [facility] Mean corpuscular hemoglobin (MCH) determinationOrdered By: Tobi Zapata on 09-13-2024 MCH (RBC) [Entitic mass] 30.7 pg 27.0-32.0 [facility] Monocyte percentageOrdered B y: Tobi Zapata on 09-13-2024 Monocytes/100 WBC (Bld) 12.4 % High 0-10 [facility] Neutrophil percentageOrdered By: Tobi Zapata on 09-13-2024 Neutrophils/100 WBC (Bld) 52.7 % 47-70 [facility] No Panel InformationOrdered By: Tobi Zapata on 09-13-2024 21 U/L <38 [facility] 125 ug/dL Low 228-428 [facility] Platelet countOrdered By: Fabiana Zapata on 09-13-2024 Platelets (Bld) [#/Vol] 250 10*3/uL 150-450 [facility] Potassium measurement (mass/ volume)Ordered By: Tobi Zapata on 09-13-2024 Potassium (Unsp spec) [Mass/Vol] 4.3 mmol/L 3.3-5.1 [facility] RBC Auto (Bld) [#/Vol]Ordere d By: Tobi Zapata on 09-13-2024 RBC (Bld) [#/Vol] 3.35 10*6/uL Low 4.6-6.2 [facility] Serum creatinine measurement (mass/volume)Ordered By: Tobi Zapata on 09-13-2024 Creatinine [Mass/Vol] 2.18 mg/dL High 0.70-1.20 [facility] Serum globulin measurementOr dered By: Tobi Zapata on 09-13-2024 Globulin (S) [Mass/Vol] 3.2 g/dL 2.2-4.2 [facility] Serum glucose measurement (m ass/volume)Ordered By: Tobi Zapata on 09-13-2024 Glucose [Mass/Vol] 131 mg/dL High 70-99 [facility] Serum or plasma alanine barber otransferase (ALT) measurementOrdered By: Tobi Zapata on 09-13-2024 ALT [Catalytic activity/Vol] 20 U/L <47 [facility] Serum or plasma albumin yocasta urement (mass/volume)Ordered By: Tobi Zapata on 09-13-2024 Albumin [Mass/Vol] 4.2 g/dL 3.4-4.8 [facility] Serum or plasma albumin/glob ulin mass ratioOrdered By: Tobi Zapata on 09-13-2024 Albumin/Globulin [Mass ratio] 1.3 {ratio} 0.9-2.4 [facility] Serum or plasma alkaline justin sphatase measurementOrdered By: Tobi Zapata on 09-13-2024 ALP [Catalytic activity/Vol] 77 U/L 40-129 [facility] Serum or plasma calcium yocasta urement (mass/volume)Ordered By: Tobi Zapata on 09-13-2024 Calcium [Mass/Vol] 9.5 mg/dL 7.6-11.0 [facility] Serum or plasma ferritin vasquez surement (mass/volume)Ordered By: Tobi Zapata on 09-13-2024 Ferritin [Mass/Vol] 605 ng/mL High 37-417 [facility] Serum or plasma iron saturat ion measurement (mass fraction)Ordered By: Tobi Zapata on 09-13-2024 Iron saturation [Mass fraction] 45.4 % 9-55 [facility] Serum or plasma urea nitroge n measurement (mass/volume)Ordered By: Tobi Zapata on 09-13-2024 Urea nitrogen [Mass/Vol] 52 mg/dL High 4-19 [facility] Sodium levelOrdered By: Dimas Zapata on 09-13-2024 Sodium [Moles/Vol] 142 mmol/L 133-145 [facility] Total proteinOrdered By: Mikael Zapata on 09-13-2024 Protein [Mass/Vol] 7.3 g/dL 5.9-8.4 [facility] Vitamin B12 ser/plasOrdered By: Tobi Zapata on 09-13-2024 Cobalamin (Vitamin B12) [Mass/Vol] 972 pg/mL High 180-914 [facility] White blood cell (WBC) count Ordered By: Tobi Zapata on 09-13-2024 WBC (Bld) [#/Vol] 10.2 10*3/uL 4.4-11.0 [facility] Absolute lymphocyte countOrd ered By: Clive Sharp on 08-25-2024 Lymphocytes Auto (Unsp spec) [#/Vol] 1.95 10*3/uL 0.83-4.51 [facility] Anion gap in Serum or Plasma Ordered By: Clive Sharp on 08-25-2024 Anion gap [Moles/Vol] 9 mmol/L 5-15 [facility] Automated lymphocyte count a s percentage of total leukocytesOrdered By: Clive Sharp on 08-25-2024 Lymphocytes/100 WBC Auto (Unsp spec) 21.0 % 19-41 [facility] BUN/creatinine ratioOrdered By: Clive Sharp on 08-25-2024 Urea nitrogen/Creatinine [Mass ratio] 20.6 mg/mg High 10-20 [facility] Basophil percentageOrdered B y: Clive Sharp on 08-25-2024 Basophils/100 WBC (Bld) 0.2 % 0-1 [facility] Blood manual differential co mment interpretation (narrative result)Ordered By: Clive Sharp on 08-25-2024 Manual differential comment Sohan (Bld) [Interp] SCANNED [facility] Carbon dioxide, total [Moles /volume] in Central venous bloodOrdered By: Clive Sharp on 08-25-2024 CO2 [Moles/Vol] 35.3 mmol/L High 21.0-32.0 [facility] Chloride assayOrdered By: Little Sharp on 08-25-2024 Chloride [Moles/Vol] 99 mmol/L 98-108 [facility] Eosinophil percentageOrdered By: Clive Sharp on 08-25-2024 Eosinophils/100 WBC (Bld) 3.2 % 0-5 [facility] Erythrocyte distribution wid th ratioOrdered By: Clive Sharp on 08-25-2024 Erythrocyte distribution width (RBC) [Ratio] 17.8 % High 11.6-14.6 [facility] Erythrocyte distribution wid th standard deviationOrdered By: Clive Sharp on 08-25-2024 Erythrocyte distribution width (RBC) [Ratio] 65.8 fl High 35.1-43.9 [facility] Glomerular filtration rate ( GFR) estimation/1.73 sq m using serum, plasma, or whole bOrdered By: Clive Sharp on 08-25-2024 GFR/1.73 sq M.predicted among non-blacks MDRD (S/P/Bld) [Vol rate/Area] 45 mL/min/{1.73_m2} Low >60 [facility] Hematocrit Auto (Bld) [Volum e fraction]Ordered By: Clive Sharp on 08-25-2024 Hematocrit (Bld) [Volume fraction] 28.8 % Low 40-54 [facility] Hemoglobin measurementOrdere d By: Clive Sharp on 08-25-2024 Hemoglobin (Bld) [Mass/Vol] 9.0 g/dL Low 13.0-16.5 [facility] Immature granulocytes/100 WB C Auto (Bld)Ordered By: Clive Sharp on 08-25-2024 Immature granulocytes/100 WBC (Bld) 1.600 % High 0.0-0.9 [facility] MCV (mean corpuscular volume ) determinationOrdered By: Clive Sharp on 08-25-2024 MCV (RBC) [Entitic vol] 99.7 fL High 80-94 [facility] Mean corpuscular hemoglobin (MCH) determinationOrdered By: Clive Sharp on 08-25-2024 MCH (RBC) [Entitic mass] 31.1 pg 27.0-32.0 [facility] Monocyte percentageOrdered B y: Clive Sharp on 08-25-2024 Monocytes/100 WBC (Bld) 10.9 % High 0-10 [facility] Neutrophil percentageOrdered By: Clive Sharp on 08-25-2024 Neutrophils/100 WBC (Bld) 63.1 % 47-70 [facility] Platelet countOrdered By: Little Sharp on 08-25-2024 Platelets (Bld) [#/Vol] 214 10*3/uL 150-450 [facility] Potassium measurement (mass/ volume)Ordered By: Clive Sharp on 08-25-2024 Potassium (Unsp spec) [Mass/Vol] 3.7 mmol/L 3.3-5.1 [facility] RBC Auto (Bld) [#/Vol]Ordere d By: Clive Sharp on 08-25-2024 RBC (Bld) [#/Vol] 2.89 10*6/uL Low 4.6-6.2 [facility] Serum creatinine measurement (mass/volume)Ordered By: Clive Sharp on 08-25-2024 Creatinine [Mass/Vol] 1.61 mg/dL High 0.70-1.20 [facility] Serum glucose measurement (m ass/volume)Ordered By: Clive Sharp on 08-25-2024 Glucose [Mass/Vol] 91 mg/dL 70-99 [facility] Serum or plasma calcium yocasta urement (mass/volume)Ordered By: Clive Sharp on 08-25-2024 Calcium [Mass/Vol] 8.0 mg/dL 7.6-11.0 [facility] Serum or plasma urea nitroge n measurement (mass/volume)Ordered By: Clive Sharp on 08-25-2024 Urea nitrogen [Mass/Vol] 33 mg/dL High 4-19 [facility] Sodium levelOrdered By: Gavin Sharp on 08-25-2024 Sodium [Moles/Vol] 143 mmol/L 133-145 [facility] White blood cell (WBC) count Ordered By: Clive Sharp on 08-25-2024 WBC (Bld) [#/Vol] 9.3 10*3/uL 4.4-11.0 [facility] Anaerobic cultureOrdered By: Clive Sharp on 08-24-2024 Bacteria identified Anaer cx Nom (Unsp spec) No growth in 5 days. [facility] Body fluid appearance (nomin al result)Ordered By: Kashif Berg on 08-24-2024 Appearance (Body fld) SL CLDY [facility] Body fluid color determinati onOrdered By: Kashif Berg on 08-24-2024 Color (Body fld) YELLOW [facility] Body fluid cultureOrdered By : Clive Sharp on 08-24-2024 Microbial culture, body fluid Culture exhibits no growth. [facility] Body fluid leukocytes count (number/volume)Ordered By: Kashif Berg on 08-24-2024 WBC (Body fld) [#/Vol] 0.526 10*3/uL [facility] Body fluid lymphocytes/100 l eukocytesOrdered By: Kashif Berg on 08-24-2024 Lymphocytes/100 WBC (Body fld) 31 % [facility] Lymphocytes/100 WBC (Body fld) 26 % [facility] Body fluid macrophage countO rdered By: Kashif Berg on 08-24-2024 Macrophages (Body fld) [#/Vol] 10 % [facility] Macrophages (Body fld) [#/Vol] 27 % [facility] Body fluid mesothelial cell percentageOrdered By: Kashif Berg on 08-24-2024 Mesothelial cells/100 WBC (Body fld) 1 % [facility] Mesothelial cells/100 WBC (Body fld) 5 % [facility] Body fluid mononuclear cell percentageOrdered By: Kashif Berg on 08-24-2024 Mononuclear cells/100 WBC (Body fld) 66.6 % [facility] Body fluid other cell count as percentage of leukocytesOrdered By: Kashif Berg on 08-24-2024 Other cells/100 WBC (Body fld) 4 % [facility] Body fluid pHOrdered By: Ezequiel Sharp on 08-24-2024 pH (Body fld) 7.6 [pH] Not Estab. [facility] Body fluid segmented neutrop hils count (number/volume)Ordered By: Kashif Berg on 08-24-2024 Segmented neutrophils (Body fld) [#/Vol] 47 % [facility] Segmented neutrophils (Body fld) [#/Vol] 33 % [facility] Body fluid total cell countO rdered By: Kashif Berg on 08-24-2024 Cells Counted Total (Body fld) [#] 0.580 10^3/ul [facility] Cytology report of Body flui d Cyto stainOrdered By: Clive Sharp on 08-24-2024 Cytology report Cyto stain Doc (Body fld) SEE PATHOLOGY REPORT [facility] Electrocardiogram reportOrde red By: Norm Mello on 08-24-2024 EKG study [facility] Work Phone: Gram stainOrdered By: Brad Sharp on 08-24-2024 Microscopic observation Gram stain Nom (Unsp spec) [facility] Monocyte detectionOrdered By : Kashif Berg on 08-24-2024 Monocytes/100 WBC (Bld) 7 % [facility] Monocytes/100 WBC (Bld) 9 % [facility] No Panel InformationOrdered By: Kashif Berg on 08-24-2024 294 /mm3 [facility] SEE COMMENT [facility] No Panel InformationOrdered By: Clive Sharp on 08-24-2024 1+ [facility] Ovalocyte detectionOrdered B y: Clive Sharp on 08-24-2024 Ovalocytes LM Ql (Bld) 1+ [facility] Pathologist interpretation o f Body fluid testsOrdered By: Kashif Berg on 08-24-2024 Pathologist interpretation (Body fld) [Interp] Reviewed [facility] Specimen source identificati on of body fluidOrdered By: Kashif Berg on 08-24-2024 Specimen source Nom (Body fld) PLEURAL FLUID/LEFT [facility] Total proteinOrdered By: Ezequiel Sharp on 08-24-2024 Protein [Mass/Vol] 5.4 g/dL Low 5.9-8.4 [facility] Glucose measurement at bedsi deOrdered By: Clive Sharp on 08-23-2024 Glucose [Mass/Vol] 89 mg/dL 74-106 [facility] Limited echocardiogram repor tOrdered By: Warren Murray on 08-23-2024 Study report [facility] Work Phone: Magnesium measurement (mass/ volume)Ordered By: Clive Sharp on 08-23-2024 Magnesium (Unsp spec) [Mass/Vol] 1.9 mg/dL 1.5-2.2 [facility] Calculated very low density lipoprotein (VLDL) cholesterol measurementOrdered By: Clive Sharp on 08-22-2024 Calculated very low density lipoprotein (VLDL) cholesterol measurement 22 mg/dL 5-40 [facility] Hemoglobin A1c percentageOrd ered By: Clive Sharp on 08-22-2024 HbA1c (Bld) [Mass fraction] 7.4 % High <5.7 [facility] LDL calc ser/plasOrdered By: Clive Sharp on 08-22-2024 Cholesterol in LDL [Mass/Vol] 77 mg/dL [facility] Serum or plasma cholesterol in HDL measurement (mass/volume)Ordered By: Clive Sharp on 08-22-2024 Cholesterol in HDL [Mass/Vol] 46 mg/dL >40 [facility] Serum or plasma cholesterol measurement (mass/volume)Ordered By: Clive Sharp on 08-22-2024 Cholesterol [Mass/Vol] 145 mg/dL <201 [facility] TSH DL <= 0.005 mIU/L QnOrde red By: Clive Sharp on 08-22-2024 TSH Qn 0.337 uIU/mL 0.300-4.200 [facility] Absolute lymphocyte countOrd ered By: Terry Singh on 08-21-2024 Lymphocytes Auto (Unsp spec) [#/Vol] 1.57 10*3/uL 0.83-4.51 [facility] Activated partial thrombopla stin time (aPTT) in platelet poor plasma by coagulation aOrdered By: Terry Singh on 08-21-2024 aPTT Coag (PPP) [Time] 25.6 s 24.1-36.2 [facility] Anion gap in Serum or Plasma Ordered By: Terry Singh on 08-21-2024 Anion gap [Moles/Vol] 11 mmol/L 5-15 [facility] Assessment of wrist artery p atency prior to arterial punctureOrdered By: Terry Singh on 08-21-2024 Arterial patency Wrist artery --pre arterial puncture Positive [facility] Automated lymphocyte count a s percentage of total leukocytesOrdered By: Terry Singh on 08-21-2024 Lymphocytes/100 WBC Auto (Unsp spec) 15.2 % Low 19-41 [facility] BUN/creatinine ratioOrdered By: Terry Singh on 08-21-2024 Urea nitrogen/Creatinine [Mass ratio] 16.6 mg/mg 10-20 [facility] Basophil percentageOrdered B y: Terry Singh on 08-21-2024 Basophils/100 WBC (Bld) 0.3 % 0-1 [facility] Bilirubin Test strip Ql (U)O rdered By: Terry Singh on 08-21-2024 Bilirubin Ql (U) Negative Negative [facility] Bilirubin, totalOrdered By: Terry Singh on 08-21-2024 Bilirubin [Mass/Vol] 0.49 mg/dL 0.00-1.30 [facility] Blood base excess determinat ionOrdered By: Terry Signh on 08-21-2024 Base excess Calc (BldV) [Moles/Vol] 16 mmol/L High -2-2 [facility] Blood bicarbonate measuremen tOrdered By: Terry Singh on 08-21-2024 HCO3 (Bld) [Moles/Vol] 39.9 mmol/L High 22-26 [facility] Blood cultureOrdered By: Faustino Singh on 08-21-2024 Bacteria identified Cx Nom (Bld) No growth in 5 days. [facility] Bacteria identified Cx Nom (Bld) Positive Abnormal [facility] Blood polychromasia detectio n by light microscopyOrdered By: Terry Singh on 08-21-2024 Polychromasia LM Ql (Bld) 1+ [facility] Carbon dioxide, total [Moles /volume] in Central venous bloodOrdered By: Terry Singh on 08-21-2024 CO2 [Moles/Vol] 29.3 mmol/L 21.0-32.0 [facility] Chloride assayOrdered By: Dave Singh on 08-21-2024 Chloride [Moles/Vol] 105 mmol/L 98-108 [facility] Eosinophil percentageOrdered By: Terry Singh on 08-21-2024 Eosinophils/100 WBC (Bld) 1.9 % 0-5 [facility] Erythrocyte distribution wid th ratioOrdered By: Terry Singh on 08-21-2024 Erythrocyte distribution width (RBC) [Ratio] 18.4 % High 11.6-14.6 [facility] Erythrocyte distribution wid th standard deviationOrdered By: Terry Singh on 08-21-2024 Erythrocyte distribution width (RBC) [Ratio] 68.8 fl High 35.1-43.9 [facility] Glomerular filtration rate ( GFR) estimation/1.73 sq m using serum, plasma, or whole bOrdered By: Terry Singh on 08-21-2024 GFR/1.73 sq M.predicted among non-blacks MDRD (S/P/Bld) [Vol rate/Area] 59 mL/min/{1.73_m2} Low >60 [facility] Gram stainOrdered By: Brad Sharp on 08-21-2024 Microscopic observation Gram stain Nom (Unsp spec) [facility] Hematocrit Auto (Bld) [Volum e fraction]Ordered By: Terry Singh on 08-21-2024 Hematocrit (Bld) [Volume fraction] 28.8 % Low 40-54 [facility] Hemoglobin measurementOrdere d By: Terry Singh on 08-21-2024 Hemoglobin (Bld) [Mass/Vol] 8.7 g/dL Low 13.0-16.5 [facility] Immature granulocytes/100 WB C Auto (Bld)Ordered By: Terry Singh on 08-21-2024 Immature granulocytes/100 WBC (Bld) 1.100 % High 0.0-0.9 [facility] Influenza virus A and B and SARS-CoV-2 (COVID-19) and Respiratory syncytial virus RNAOrdered By: Clive Sharp on 08-21-2024 SARS-CoV-2 (COVID-19) RNA JUSTIN+probe Ql (Unsp spec) [facility] Ketones Test strip Ql (U)Ord ered By: Terry Singh on 08-21-2024 Ketones Ql (U) Negative Negative [facility] MCV (mean corpuscular volume ) determinationOrdered By: Terry Singh on 08-21-2024 MCV (RBC) [Entitic vol] 101.8 fL High 80-94 [facility] Mean corpuscular hemoglobin (MCH) determinationOrdered By: Terry Singh on 08-21-2024 MCH (RBC) [Entitic mass] 30.7 pg 27.0-32.0 [facility] Measurement, pHOrdered By: Carlo Singh on 08-21-2024 pH (Unsp spec) 7.45 [pH] 7.35-7.45 [facility] Microbial respiratory cultur eOrdered By: Clive Sharp on 08-21-2024 Microorganism identified Cx Nom (Unsp spec) Enterobacter cloacae complex Abnormal [facility] Microorganism identified Cx Nom (Unsp spec) Meth. resistant Staph. aureus Abnormal [facility] Monocyte percentageOrdered B y: Terry Singh on 08-21-2024 Monocytes/100 WBC (Bld) 10.5 % High 0-10 [facility] Mucus LM Ql (Urine sed)Order ed By: Terry Singh on 08-21-2024 Mucus Ql (Urine sed) 0 SEEN /hpf [facility] Nasal methicillin resistant Staphylococcus aureus (MRSA) DNA detection by PCROrdered By: Clive Sharp on 08-21-2024 MRSA DNA JUSTIN+probe Ql (Nose) Meth. resistant Staph. aureus Abnormal [facility] Natriuretic peptide.B prohor sena N-Terminal [Mass/volume] in Serum or PlasmaOrdered By: Terry Singh on 08-21-2024 Natriuretic peptide.B prohormone N-Terminal [Mass/Vol] 92481 pg/mL High <900 [facility] Neutrophil percentageOrdered By: Terry Singh on 08-21-2024 Neutrophils/100 WBC (Bld) 71.0 % High 47-70 [facility] Nitrite Test strip Ql (U)Ord ered By: Terry Singh on 08-21-2024 Nitrite Ql (U) Negative Negative [facility] No Panel InformationOrdered By: Terry Singh on 08-21-2024 ART [facility] L Radial [facility] Not entered [facility] BiPAP [facility] 14 [facility] 9 [facility] 1+ [facility] 29 U/L <38 [facility] Platelet countOrdered By: Dave Singh on 08-21-2024 Platelets (Bld) [#/Vol] 226 10*3/uL 150-450 [facility] Platelet estimateOrdered By: Terry Singh on 08-21-2024 Platelets LM Ql (Bld) A ADEQ [facility] Potassium measurement (mass/ volume)Ordered By: Terry Singh on 08-21-2024 Potassium (Unsp spec) [Mass/Vol] 4.5 mmol/L 3.3-5.1 [facility] Protein Test strip Ql (U)Ord ered By: Terry Singh on 08-21-2024 Protein Ql (U) 30 mg/dl High Negative [facility] Prothrombin timeOrdered By: Terry Singh on 08-21-2024 PT Coag (PPP) [Time] 14.1 s 11.7-14.9 [facility] RBC Auto (Bld) [#/Vol]Ordere d By: Terry Singh on 08-21-2024 RBC (Bld) [#/Vol] 2.83 10*6/uL Low 4.6-6.2 [facility] Serum creatinine measurement (mass/volume)Ordered By: Terry Singh on 08-21-2024 Creatinine [Mass/Vol] 1.27 mg/dL High 0.70-1.20 [facility] Serum globulin measurementOr dered By: Terry Singh on 08-21-2024 Globulin (S) [Mass/Vol] 2.7 g/dL 2.2-4.2 [facility] Serum glucose measurement (m ass/volume)Ordered By: Teryr Singh on 08-21-2024 Glucose [Mass/Vol] 150 mg/dL High 70-99 [facility] Serum or plasma alanine barber otransferase (ALT) measurementOrdered By: Terry Singh on 08-21-2024 ALT [Catalytic activity/Vol] 19 U/L <47 [facility] Serum or plasma albumin yocasta urement (mass/volume)Ordered By: Terry Singh on 08-21-2024 Albumin [Mass/Vol] 3.5 g/dL 3.4-4.8 [facility] Serum or plasma albumin/glob ulin mass ratioOrdered By: Terry Singh on 08-21-2024 Albumin/Globulin [Mass ratio] 1.3 {ratio} 0.9-2.4 [facility] Serum or plasma alkaline justin sphatase measurementOrdered By: Terry Singh on 08-21-2024 ALP [Catalytic activity/Vol] 71 U/L 40-129 [facility] Serum or plasma calcium yocasta urement (mass/volume)Ordered By: Terry Singh on 08-21-2024 Calcium [Mass/Vol] 8.2 mg/dL 7.6-11.0 [facility] Serum or plasma urea nitroge n measurement (mass/volume)Ordered By: Terry Singh on 08-21-2024 Urea nitrogen [Mass/Vol] 21 mg/dL High 4-19 [facility] Sodium levelOrdered By: Inés Singh on 08-21-2024 Sodium [Moles/Vol] 145 mmol/L 133-145 [facility] Squamous epithelial cells de tection in urine sediment by light microscopyOrdered By: Terry Singh 08-21-2024 Epithelial cells.squamous LM Ql (Urine sed) 0-5 SEEN /hpf 0-5 [facility] Total carbon dioxide measure mentOrdered By: Terry Singh on 08-21-2024 CO2 [Moles/Vol] 42 mmol/L [facility] Total proteinOrdered By: Faustino Singh on 08-21-2024 Protein [Mass/Vol] 6.2 g/dL 5.9-8.4 [facility] Troponin T.cardiac [Mass/vol ume] in Serum or Plasma by High sensitivity methodOrdered By: Terry Singh on 08-21-2024 Troponin T.cardiac High sensitivity method [Mass/Vol] 95 ng/L Critically high <22 [facility] Troponin T.cardiac High sensitivity method [Mass/Vol] 103 ng/L Critically high <22 [facility] Troponin T.cardiac High sensitivity method [Mass/Vol] 97 ng/L Critically high <22 [facility] Urine clarityOrdered By: Faustino Singh on 08-21-2024 Clarity (U) Cloudy Clear [facility] Urine color determinationOrd ered By: Terry Singh on 08-21-2024 Color (U) Yellow Yellow [facility] Urine cultureOrdered By: Faustino Singh on 08-21-2024 Bacteria identified Cx Nom (U) Culture exhibits no growth. [facility] Urine glucose detectionOrder ed By: Terry Singh on 08-21-2024 Glucose Ql (U) 1000 mg/dl High Normal [facility] Urine leukocyte esterase det ection by dipstickOrdered By: Terry Singh on 08-21-2024 Leukocyte esterase Test strip Ql (U) 500 /ul High Negative [facility] Urine pHOrdered By: Terry lou on 08-21-2024 pH (U) 6.5 [pH] 5.0 - 8.0 [facility] Urine sediment bacteria coun t by microscopy (number/high power field)Ordered By: Terry Singh on 08-21-2024 Bacteria LM.HPF (Urine sed) [#/Area] 0 /[HPF] None Seen [facility] Urine specific gravity measu rementOrdered By: Terry Singh on 08-21-2024 Specific gravity (U) [Rel density] 1.010 1.002-1.030 [facility] Urine urobilinogen measureme ntOrdered By: Terry Singh on 08-21-2024 Urobilinogen Ql (U) Normal mg/dl Normal [facility] White blood cell (WBC) count Ordered By: Terry Singh on 08-21-2024 WBC (Bld) [#/Vol] 10.3 10*3/uL 4.4-11.0 [facility] White blood cell countOrdere d By: Terry Singh on 08-21-2024 White blood cell count >100 SEEN /hpf 0-5 [facility] Stool gastrointestinal hemog lobin detection by immunologic methodOrdered By: Tobi Zapata on 07-23-2024 Lower GI hemoglobin IA Ql (Stl) Positive Abnormal [facility] Anion gap in Serum or Plasma Ordered By: Wilberto Villafuerte on 07-21-2024 Anion gap [Moles/Vol] 7 mmol/L 5-15 [facility] BUN/creatinine ratioOrdered By: Wilberto Villafuerte on 07-21-2024 Urea nitrogen/Creatinine [Mass ratio] 25.7 mg/mg High 10-20 [facility] Carbon dioxide, total [Moles /volume] in Central venous bloodOrdered By: Wilberto Villafuerte on 07-21-2024 CO2 [Moles/Vol] 31.9 mmol/L 21.0-32.0 [facility] Chloride assayOrdered By: Anh Villafuerte on 07-21-2024 Chloride [Moles/Vol] 105 mmol/L 98-108 [facility] Erythrocyte distribution wid th ratioOrdered By: Wilberto Villafuerte on 07-21-2024 Erythrocyte distribution width (RBC) [Ratio] 20.5 % High 11.6-14.6 [facility] Erythrocyte distribution wid th standard deviationOrdered By: Wilberto Villafuerte on 07-21-2024 Erythrocyte distribution width (RBC) [Ratio] 75.2 fl High 35.1-43.9 [facility] Glomerular filtration rate ( GFR) estimation/1.73 sq m using serum, plasma, or whole bOrdered By: Wilberto Villafuerte on 07-21-2024 GFR/1.73 sq M.predicted among non-blacks MDRD (S/P/Bld) [Vol rate/Area] 59 mL/min/{1.73_m2} Low >60 [facility] Hematocrit Auto (Bld) [Volum e fraction]Ordered By: Wilberto Villafuerte on 07-21-2024 Hematocrit (Bld) [Volume fraction] 23.3 % Low 40-54 [facility] Hemoglobin measurementOrdere d By: Wilberto Villafuerte on 07-21-2024 Hemoglobin (Bld) [Mass/Vol] 7.0 g/dL Low 13.0-16.5 [facility] MCV (mean corpuscular volume ) determinationOrdered By: Wilberto Villafuerte on 07-21-2024 MCV (RBC) [Entitic vol] 100.9 fL High 80-94 [facility] Mean corpuscular hemoglobin (MCH) determinationOrdered By: Wilberto Villafuerte on 07-21-2024 MCH (RBC) [Entitic mass] 30.3 pg 27.0-32.0 [facility] Platelet countOrdered By: Anh Villafuerte on 07-21-2024 Platelets (Bld) [#/Vol] 235 10*3/uL 150-450 [facility] Potassium measurement (mass/ volume)Ordered By: Wilberto Villafuerte on 07-21-2024 Potassium (Unsp spec) [Mass/Vol] 4.9 mmol/L 3.3-5.1 [facility] RBC Auto (Bld) [#/Vol]Ordere d By: Wilberto Villafuerte on 07-21-2024 RBC (Bld) [#/Vol] 2.31 10*6/uL Low 4.6-6.2 [facility] Serum creatinine measurement (mass/volume)Ordered By: Wilberto Villafuerte on 07-21-2024 Creatinine [Mass/Vol] 1.27 mg/dL High 0.70-1.20 [facility] Serum glucose measurement (m ass/volume)Ordered By: Wilberto Villafuerte on 07-21-2024 Glucose [Mass/Vol] 178 mg/dL High 70-99 [facility] Serum or plasma calcium yocasta urement (mass/volume)Ordered By: Wilberto Villafuerte on 07-21-2024 Calcium [Mass/Vol] 8.7 mg/dL 7.6-11.0 [facility] Serum or plasma urea nitroge n measurement (mass/volume)Ordered By: Wilberto Villafuerte on 07-21-2024 Urea nitrogen [Mass/Vol] 33 mg/dL High 4-19 [facility] Sodium levelOrdered By: Jacob Villafuerte on 07-21-2024 Sodium [Moles/Vol] 144 mmol/L 133-145 [facility] Trough vancomycin levelOrder ed By: Wilberto Villafuerte on 07-21-2024 Vancomycin trough [Mass/Vol] 16.3 ug/mL High 5.0-15.0 [facility] White blood cell (WBC) count Ordered By: Wilberto Villafuerte on 07-21-2024 WBC (Bld) [#/Vol] 8.4 10*3/uL 4.4-11.0 [facility] Anion gap in Serum or Plasma Ordered By: Martha Dodson on 07-20-2024 Anion gap [Moles/Vol] 9 mmol/L 5-15 [facility] BUN/creatinine ratioOrdered By: Martha Dodson on 07-20-2024 Urea nitrogen/Creatinine [Mass ratio] 22.9 mg/mg High 10-20 [facility] Bilirubin, totalOrdered By: Martha Dodson on 07-20-2024 Bilirubin [Mass/Vol] 0.31 mg/dL 0.00-1.30 [facility] Carbon dioxide, total [Moles /volume] in Central venous bloodOrdered By: Martha Dodson on 07-20-2024 CO2 [Moles/Vol] 30.8 mmol/L 21.0-32.0 [facility] Chloride assayOrdered By: Dave Dodson on 07-20-2024 Chloride [Moles/Vol] 104 mmol/L 98-108 [facility] Glomerular filtration rate ( GFR) estimation/1.73 sq m using serum, plasma, or whole bOrdered By: Martha Dodson on 07-20-2024 GFR/1.73 sq M.predicted among non-blacks MDRD (S/P/Bld) [Vol rate/Area] 50 mL/min/{1.73_m2} Low >60 [facility] Iron measurement (mass/mass) Ordered By: Martha Dodson on 07-20-2024 Iron (Unsp spec) [Mass/Mass] 37 ug/dL Low 65-175 [facility] No Panel InformationOrdered By: Martha Dodson on 07-20-2024 14 U/L <38 [facility] 183 ug/dL Low 228-428 [facility] Potassium measurement (mass/ volume)Ordered By: Martha Dodson on 07-20-2024 Potassium (Unsp spec) [Mass/Vol] 4.6 mmol/L 3.3-5.1 [facility] Serum creatinine measurement (mass/volume)Ordered By: Martha Dodson on 07-20-2024 Creatinine [Mass/Vol] 1.46 mg/dL High 0.70-1.20 [facility] Serum globulin measurementOr dered By: Martha Dodson on 07-20-2024 Globulin (S) [Mass/Vol] 2.3 g/dL 2.2-4.2 [facility] Serum glucose measurement (m ass/volume)Ordered By: Martha Dodson on 07-20-2024 Glucose [Mass/Vol] 179 mg/dL High 70-99 [facility] Serum or plasma alanine barber otransferase (ALT) measurementOrdered By: Martha Dodson on 07-20-2024 ALT [Catalytic activity/Vol] 19 U/L <47 [facility] Serum or plasma albumin yocasta urement (mass/volume)Ordered By: Martha Dodson on 07-20-2024 Albumin [Mass/Vol] 3.7 g/dL 3.4-4.8 [facility] Serum or plasma albumin/glob ulin mass ratioOrdered By: Martha Dodson on 07-20-2024 Albumin/Globulin [Mass ratio] 1.6 {ratio} 0.9-2.4 [facility] Serum or plasma alkaline justin sphatase measurementOrdered By: Martha Dodson on 07-20-2024 ALP [Catalytic activity/Vol] 89 U/L 40-129 [facility] Serum or plasma calcium yocasta urement (mass/volume)Ordered By: Martha Dodson 07-20-2024 Calcium [Mass/Vol] 8.8 mg/dL 7.6-11.0 [facility] Serum or plasma ferritin vasquez surement (mass/volume)Ordered By: Martha Dodson 07-20-2024 Ferritin [Mass/Vol] 137 ng/mL 37-417 [facility] Serum or plasma iron saturat ion measurement (mass fraction)Ordered By: Martha Dodson 07-20-2024 Iron saturation [Mass fraction] 16.8 % 9-55 [facility] Serum or plasma urea nitroge n measurement (mass/volume)Ordered By: Martha Dodson on 07-20-2024 Urea nitrogen [Mass/Vol] 34 mg/dL High 4-19 [facility] Sodium levelOrdered By: Martha Dodson 07-20-2024 Sodium [Moles/Vol] 144 mmol/L 133-145 [facility] Total proteinOrdered By: Jayden Dodson on 07-20-2024 Protein [Mass/Vol] 6.0 g/dL 5.9-8.4 [facility] Anion gap in Serum or Plasma Ordered By: Wilberto Villafuerte on 07-14-2024 Anion gap [Moles/Vol] 10 mmol/L 5-15 [facility] BUN/creatinine ratioOrdered By: Wilberto Villafuerte on 07-14-2024 Urea nitrogen/Creatinine [Mass ratio] 28.0 mg/mg High 10-20 [facility] Carbon dioxide, total [Moles /volume] in Central venous bloodOrdered By: Wilberto Villafuerte on 07-14-2024 CO2 [Moles/Vol] 29.3 mmol/L 21.0-32.0 [facility] Chloride assayOrdered By: Anh Villafuerte on 07-14-2024 Chloride [Moles/Vol] 104 mmol/L 98-108 [facility] Glomerular filtration rate ( GFR) estimation/1.73 sq m using serum, plasma, or whole bOrdered By: Wilberto Villafuerte on 07-14-2024 GFR/1.73 sq M.predicted among non-blacks MDRD (S/P/Bld) [Vol rate/Area] 43 mL/min/{1.73_m2} Low >60 [facility] Potassium measurement (mass/ volume)Ordered By: Wilberto Villafuerte on 07-14-2024 Potassium (Unsp spec) [Mass/Vol] 5.1 mmol/L 3.3-5.1 [facility] Serum creatinine measurement (mass/volume)Ordered By: Wilberto Villafuerte on 07-14-2024 Creatinine [Mass/Vol] 1.65 mg/dL High 0.70-1.20 [facility] Serum glucose measurement (m ass/volume)Ordered By: Wilberto Villafuerte on 07-14-2024 Glucose [Mass/Vol] 135 mg/dL High 70-99 [facility] Serum or plasma calcium yocasta urement (mass/volume)Ordered By: Wilberto Villafuerte on 07-14-2024 Calcium [Mass/Vol] 8.6 mg/dL 7.6-11.0 [facility] Serum or plasma urea nitroge n measurement (mass/volume)Ordered By: Wilberto Villafuerte on 07-14-2024 Urea nitrogen [Mass/Vol] 46 mg/dL High 4- [facility] Sodium levelOrdered By: Jacob Villafuerte on 07-14-2024 Sodium [Moles/Vol] 143 mmol/L 133-145 [facility] Trough vancomycin levelOrder ed By: Wilberto Villafuerte on 07-14-2024 Vancomycin trough [Mass/Vol] 21.5 ug/mL High 5.0-15.0 [facility] Anion gap in Serum or Plasma Ordered By: GERA Naik on 07-12-2024 Anion gap [Moles/Vol] 9 mmol/L 5-15 [facility] BUN/creatinine ratioOrdered By: GERA Naik on 07-12-2024 Urea nitrogen/Creatinine [Mass ratio] 27.1 mg/mg High 10-20 [facility] Blood manual differential co mment interpretation (narrative result)Ordered By: GERA Naik on 07-12-2024 Manual differential comment Sohan (Bld) [Interp] See comment [facility] Carbon dioxide, total [Moles /volume] in Central venous bloodOrdered By: GERA Naik on 07-12-2024 CO2 [Moles/Vol] 29.3 mmol/L 21.0-32.0 [facility] Chloride assayOrdered By: GERA Naik on 07-12-2024 Chloride [Moles/Vol] 105 mmol/L 98-108 [facility] Erythrocyte distribution wid th ratioOrdered By: GERA Naik on 07-12-2024 Erythrocyte distribution width (RBC) [Ratio] 19.7 % High 11.6-14.6 [facility] Erythrocyte distribution wid th standard deviationOrdered By: GERA Naik on 07-12-2024 Erythrocyte distribution width (RBC) [Ratio] 69.9 fl High 35.1-43.9 [facility] Glomerular filtration rate ( GFR) estimation/1.73 sq m using serum, plasma, or whole bOrdered By: GERA Naik on 07-12-2024 GFR/1.73 sq M.predicted among non-blacks MDRD (S/P/Bld) [Vol rate/Area] 52 mL/min/{1.73_m2} Low >60 [facility] Hematocrit Auto (Bld) [Volum e fraction]Ordered By: GERA Naik on 07-12-2024 Hematocrit (Bld) [Volume fraction] 24.5 % Low 40-54 [facility] Hemoglobin measurementOrdere d By: GERA Naik on 07-12-2024 Hemoglobin (Bld) [Mass/Vol] 7.4 g/dL Low 13.0-16.5 [facility] MCV (mean corpuscular volume ) determinationOrdered By: GERA Naik on 07-12-2024 MCV (RBC) [Entitic vol] 97.6 fL High 80-94 [facility] Mean corpuscular hemoglobin (MCH) determinationOrdered By: GERA Naik on 07-12-2024 MCH (RBC) [Entitic mass] 29.5 pg 27.0-32.0 [facility] Platelet countOrdered By: GERA Naik on 07-12-2024 Platelets (Bld) [#/Vol] 199 10*3/uL 150-450 [facility] Potassium measurement (mass/ volume)Ordered By: GREA Naik on 07-12-2024 Potassium (Unsp spec) [Mass/Vol] 5.3 mmol/L High 3.3-5.1 [facility] RBC Auto (Bld) [#/Vol]Ordere d By: GERA Naik on 07-12-2024 RBC (Bld) [#/Vol] 2.51 10*6/uL Low 4.6-6.2 [facility] Serum creatinine measurement (mass/volume)Ordered By: GERA Naik on 07-12-2024 Creatinine [Mass/Vol] 1.41 mg/dL High 0.70-1.20 [facility] Serum glucose measurement (m ass/volume)Ordered By: GERA Naki on 07-12-2024 Glucose [Mass/Vol] 363 mg/dL High 70-99 [facility] Serum or plasma calcium yocasta urement (mass/volume)Ordered By: GERA Naik on 07-12-2024 Calcium [Mass/Vol] 8.8 mg/dL 7.6-11.0 [facility] Serum or plasma urea nitroge n measurement (mass/volume)Ordered By: GERA Naik on 07-12-2024 Urea nitrogen [Mass/Vol] 38 mg/dL High 4-19 [facility] Sodium levelOrdered By: GERA Powell vi Gumaro on 07-12-2024 Sodium [Moles/Vol] 144 mmol/L 133-145 [facility] Trough vancomycin levelOrder ed By: GERA Naik on 07-12-2024 Vancomycin trough [Mass/Vol] 27.7 ug/mL High 5.0-15.0 [facility] White blood cell (WBC) count Ordered By: GERA Naik on 07-12-2024 WBC (Bld) [#/Vol] 7.2 10*3/uL 4.4-11.0 [facility] Absolute lymphocyte countOrd ered By: Marco Hoffman on 07-08-2024 Lymphocytes Auto (Unsp spec) [#/Vol] 1.34 10*3/uL 0.83-4.51 [facility] Activated partial thrombopla stin time (aPTT) in platelet poor plasma by coagulation aOrdered By: Marco Hoffman on 07-08-2024 aPTT Coag (PPP) [Time] 31.3 s 24.1-36.2 [facility] Anion gap in Serum or Plasma Ordered By: Marco Hoffman on 07-08-2024 Anion gap [Moles/Vol] 11 mmol/L 5-15 [facility] Automated lymphocyte count a s percentage of total leukocytesOrdered By: Marco Hoffman on 07-08-2024 Lymphocytes/100 WBC Auto (Unsp spec) 15.2 % Low 19-41 [facility] BUN/creatinine ratioOrdered By: Marco Hoffman on 07-08-2024 Urea nitrogen/Creatinine [Mass ratio] 30.5 mg/mg High 10-20 [facility] Basophil percentageOrdered B y: Marco Hoffman on 07-08-2024 Basophils/100 WBC (Bld) 0.2 % 0-1 [facility] Bilirubin Test strip Ql (U)O rdered By: Mraco Hoffman on 07-08-2024 Bilirubin Ql (U) Negative Negative [facility] Bilirubin, totalOrdered By: Marco Hoffman on 07-08-2024 Bilirubin [Mass/Vol] 0.35 mg/dL 0.00-1.30 [facility] Blood cultureOrdered By: Jasmine Hoffman on 07-08-2024 Bacteria identified Cx Nom (Bld) No growth in 5 days. [facility] Bacteria identified Cx Nom (Bld) No growth in 5 days. [facility] Carbon dioxide, total [Moles /volume] in Central venous bloodOrdered By: Marco Hoffman on 07-08-2024 CO2 [Moles/Vol] 27.6 mmol/L 21.0-32.0 [facility] Chloride assayOrdered By: Stephanie Hoffman on 07-08-2024 Chloride [Moles/Vol] 106 mmol/L 98-108 [facility] Eosinophil percentageOrdered By: Marco Hoffman on 07-08-2024 Eosinophils/100 WBC (Bld) 2.0 % 0-5 [facility] Erythrocyte distribution wid th ratioOrdered By: Marco Hoffman on 07-08-2024 Erythrocyte distribution width (RBC) [Ratio] 20.1 % High 11.6-14.6 [facility] Erythrocyte distribution wid th standard deviationOrdered By: Marco Hoffman on 07-08-2024 Erythrocyte distribution width (RBC) [Ratio] 70.7 fl High 35.1-43.9 [facility] Glomerular filtration rate ( GFR) estimation/1.73 sq m using serum, plasma, or whole bOrdered By: Marco Hoffman on 07-08-2024 GFR/1.73 sq M.predicted among non-blacks MDRD (S/P/Bld) [Vol rate/Area] 59 mL/min/{1.73_m2} Low >60 [facility] Hematocrit Auto (Bld) [Volum e fraction]Ordered By: Marco Hoffman on 07-08-2024 Hematocrit (Bld) [Volume fraction] 23.2 % Low 40-54 [facility] Hemoglobin measurementOrdere d By: Marco Hoffman on 07-08-2024 Hemoglobin (Bld) [Mass/Vol] 7.2 g/dL Low 13.0-16.5 [facility] Immature granulocytes/100 WB C Auto (Bld)Ordered By: Marco Hoffman on 07-08-2024 Immature granulocytes/100 WBC (Bld) 1.500 % High 0.0-0.9 [facility] Ketones Test strip Ql (U)Ord ered By: Marco Hoffman on 07-08-2024 Ketones Ql (U) Negative Negative [facility] MCV (mean corpuscular volume ) determinationOrdered By: Marco Hoffman on 07-08-2024 MCV (RBC) [Entitic vol] 95.5 fL High 80-94 [facility] Mean corpuscular hemoglobin (MCH) determinationOrdered By: Marco Hoffman on 07-08-2024 MCH (RBC) [Entitic mass] 29.6 pg 27.0-32.0 [facility] Monocyte percentageOrdered B y: Marco Hoffman on 07-08-2024 Monocytes/100 WBC (Bld) 9.4 % 0-10 [facility] Mucus LM Ql (Urine sed)Order ed By: Marco Hoffman on 07-08-2024 Mucus Ql (Urine sed) 0 SEEN /hpf [facility] Neutrophil percentageOrdered By: Marco Hoffman on 07-08-2024 Neutrophils/100 WBC (Bld) 71.7 % High 47-70 [facility] Nitrite Test strip Ql (U)Ord ered By: Marco Hoffman on 07-08-2024 Nitrite Ql (U) Negative Negative [facility] No Panel InformationOrdered By: Marco Hoffman on 07-08-2024 23 U/L <38 [facility] 2+ [facility] Platelet countOrdered By: Stephanie Hoffman on 07-08-2024 Platelets (Bld) [#/Vol] 162 10*3/uL 150-450 [facility] Potassium measurement (mass/ volume)Ordered By: Marco Hoffman on 07-08-2024 Potassium (Unsp spec) [Mass/Vol] 3.8 mmol/L 3.3-5.1 [facility] Protein Test strip Ql (U)Ord ered By: Marco Hoffman on 07-08-2024 Protein Ql (U) 30 mg/dl High Negative [facility] Prothrombin timeOrdered By: Marco Hoffman on 07-08-2024 PT Coag (PPP) [Time] 14.2 s 11.7-14.9 [facility] RBC Auto (Bld) [#/Vol]Ordere d By: Marco Hoffman on 07-08-2024 RBC (Bld) [#/Vol] 2.43 10*6/uL Low 4.6-6.2 [facility] Serum creatinine measurement (mass/volume)Ordered By: Marco Hoffman on 07-08-2024 Creatinine [Mass/Vol] 1.28 mg/dL High 0.70-1.20 [facility] Serum globulin measurementOr dered By: Marco Hoffman on 07-08-2024 Globulin (S) [Mass/Vol] 2.7 g/dL 2.2-4.2 [facility] Serum glucose measurement (m ass/volume)Ordered By: Marco Hoffman on 07-08-2024 Glucose [Mass/Vol] 164 mg/dL High 70-99 [facility] Serum or plasma alanine barber otransferase (ALT) measurementOrdered By: Marco Hoffman on 07-08-2024 ALT [Catalytic activity/Vol] 38 U/L <47 [facility] Serum or plasma albumin yocasta urement (mass/volume)Ordered By: Marco Hoffman on 07-08-2024 Albumin [Mass/Vol] 3.4 g/dL 3.4-4.8 [facility] Serum or plasma albumin/glob ulin mass ratioOrdered By: Marco Hoffman 07-08-2024 Albumin/Globulin [Mass ratio] 1.3 {ratio} 0.9-2.4 [facility] Serum or plasma alkaline justin sphatase measurementOrdered By: Marco Hoffman 07-08-2024 ALP [Catalytic activity/Vol] 122 U/L 40-129 [facility] Serum or plasma calcium yocasta urement (mass/volume)Ordered By: Marco Hoffman 07-08-2024 Calcium [Mass/Vol] 8.5 mg/dL 7.6-11.0 [facility] Serum or plasma urea nitroge n measurement (mass/volume)Ordered By: Marco Hoffman on 07-08-2024 Urea nitrogen [Mass/Vol] 39 mg/dL High 4-19 [facility] Sodium levelOrdered By: Marco Hoffman on 07-08-2024 Sodium [Moles/Vol] 144 mmol/L 133-145 [facility] Squamous epithelial cells de tection in urine sediment by light microscopyOrdered By: Marco Hoffman on 07-08-2024 Epithelial cells.squamous LM Ql (Urine sed) 0-5 SEEN /hpf 0-5 [facility] Total proteinOrdered By: Jasmine Hoffman on 07-08-2024 Protein [Mass/Vol] 6.1 g/dL 5.9-8.4 [facility] Urine clarityOrdered By: Jasmine Hoffman on 07-08-2024 Clarity (U) Sl. Cloudy Clear [facility] Urine color determinationOrd ered By: Marco Hoffman on 07-08-2024 Color (U) Yellow Yellow [facility] Urine glucose detectionOrder ed By: Marco Hoffman on 07-08-2024 Glucose Ql (U) 1000 mg/dl High Normal [facility] Urine leukocyte esterase det ection by dipstickOrdered By: Marco Hoffman on 07-08-2024 Leukocyte esterase Test strip Ql (U) 500 /ul High Negative [facility] Urine pHOrdered By: Marco campos on 07-08-2024 pH (U) 6.0 [pH] 5.0 - 8.0 [facility] Urine sediment bacteria coun t by microscopy (number/high power field)Ordered By: Marco Hoffman on 07-08-2024 Bacteria LM.HPF (Urine sed) [#/Area] 1 /[HPF] None Seen [facility] Urine sediment yeast count b y microscopy (number/high powered field)Ordered By: Marco Hoffman on 07-08-2024 Yeast LM.HPF (Urine sed) [#/Area] 2 /[HPF] None Seen [facility] Urine specific gravity measu rementOrdered By: Marco Hoffman on 07-08-2024 Specific gravity (U) [Rel density] 1.015 1.002-1.030 [facility] Urine urobilinogen measureme ntOrdered By: Marco Hoffman on 07-08-2024 Urobilinogen Ql (U) Normal mg/dl Normal [facility] White blood cell (WBC) count Ordered By: Marco Hoffman on 07-08-2024 WBC (Bld) [#/Vol] 8.8 10*3/uL 4.4-11.0 [facility] White blood cell countOrdere d By: Marco Hoffman on 07-08-2024 White blood cell count 25-50 SEEN /hpf 0-5 [facility] Anion gap in Serum or Plasma Ordered By: Wilberto Villafuerte on 07-05-2024 Anion gap [Moles/Vol] 10 mmol/L 5-15 [facility] BUN/creatinine ratioOrdered By: Wilberto Villafuerte on 07-05-2024 Urea nitrogen/Creatinine [Mass ratio] 27.0 mg/mg High 10-20 [facility] Blood manual differential co mment interpretation (narrative result)Ordered By: Wilberto Villafuerte on 07-05-2024 Manual differential comment Sohan (Bld) [Interp] See comment [facility] Carbon dioxide, total [Moles /volume] in Central venous bloodOrdered By: Wilberto Villafuerte on 07-05-2024 CO2 [Moles/Vol] 29.6 mmol/L 21.0-32.0 [facility] Chloride assayOrdered By: Anh Villafuerte on 07-05-2024 Chloride [Moles/Vol] 107 mmol/L 98-108 [facility] Erythrocyte distribution wid th ratioOrdered By: Wilberto Villafuerte on 07-05-2024 Erythrocyte distribution width (RBC) [Ratio] 21.1 % High 11.6-14.6 [facility] Erythrocyte distribution wid th standard deviationOrdered By: Wilberto Villafurete on 07-05-2024 Erythrocyte distribution width (RBC) [Ratio] 75.3 fl High 35.1-43.9 [facility] Glomerular filtration rate ( GFR) estimation/1.73 sq m using serum, plasma, or whole bOrdered By: Wilberto Villafuerte on 07-05-2024 GFR/1.73 sq M.predicted among non-blacks MDRD (S/P/Bld) [Vol rate/Area] 58 mL/min/{1.73_m2} Low >60 [facility] Hematocrit Auto (Bld) [Volum e fraction]Ordered By: Wilberto Villafuerte on 07-05-2024 Hematocrit (Bld) [Volume fraction] 28.2 % Low 40-54 [facility] Hemoglobin measurementOrdere d By: Wilberto Villafuerte on 07-05-2024 Hemoglobin (Bld) [Mass/Vol] 8.4 g/dL Low 13.0-16.5 [facility] MCV (mean corpuscular volume ) determinationOrdered By: Wilberto Villafuerte on 07-05-2024 MCV (RBC) [Entitic vol] 97.6 fL High 80-94 [facility] Mean corpuscular hemoglobin (MCH) determinationOrdered By: Wilberto Villafuerte on 07-05-2024 MCH (RBC) [Entitic mass] 29.1 pg 27.0-32.0 [facility] Platelet countOrdered By: Anh Villafuerte on 07-05-2024 Platelets (Bld) [#/Vol] 263 10*3/uL 150-450 [facility] Potassium measurement (mass/ volume)Ordered By: Wilberto Villafuerte on 07-05-2024 Potassium (Unsp spec) [Mass/Vol] 4.5 mmol/L 3.3-5.1 [facility] RBC Auto (Bld) [#/Vol]Ordere d By: Wilberto Villafuerte on 07-05-2024 RBC (Bld) [#/Vol] 2.89 10*6/uL Low 4.6-6.2 [facility] Serum creatinine measurement (mass/volume)Ordered By: Wilberto Villafuerte on 07-05-2024 Creatinine [Mass/Vol] 1.29 mg/dL High 0.70-1.20 [facility] Serum glucose measurement (m ass/volume)Ordered By: Wilberto Villafuerte on 07-05-2024 Glucose [Mass/Vol] 158 mg/dL High 70-99 [facility] Serum or plasma calcium yocasta urement (mass/volume)Ordered By: Wilberto Villafuerte on 07-05-2024 Calcium [Mass/Vol] 8.8 mg/dL 7.6-11.0 [facility] Serum or plasma urea nitroge n measurement (mass/volume)Ordered By: Wilberto Villafuerte on 07-05-2024 Urea nitrogen [Mass/Vol] 35 mg/dL High 4-19 [facility] Sodium levelOrdered By: Jacob Villafuerte on 07-05-2024 Sodium [Moles/Vol] 146 mmol/L High 133-145 [facility] Trough vancomycin levelOrder ed By: Wilberto Villafuerte on 07-05-2024 Vancomycin trough [Mass/Vol] 20.4 ug/mL High 5.0-15.0 [facility] White blood cell (WBC) count Ordered By: Wilberto Villafuerte on 07-05-2024 WBC (Bld) [#/Vol] 11.6 10*3/uL High 4.4-11.0 [facility] Anion gap [Moles/Vol]Ordered By: Wilberto Villafuerte on 06-28-2024 Anion gap in Serum or Plasma 8 5-15 [facility] Anion gap in Serum or Plasma Ordered By: Wilberto Villafuerte on 06-28-2024 Anion gap [Moles/Vol] 8 mmol/L 5-15 [facility] BUN/creatinine ratioOrdered By: Wilberto Villafuerte on 06-28-2024 Urea nitrogen/Creatinine [Mass ratio] 33.7 mg/mg High 10-20 [facility] BUN/creatinine ratio 33.7 RATIO High 10-20 [facility] Blood manual differential co mment interpretation (narrative result)Ordered By: Wilberto Villafuerte on 06-28-2024 Manual differential comment Sohan (Bld) [Interp] See comment [facility] Calcium [Mass/Vol]Ordered By : Wilberto Villafuerte on 06-28-2024 Serum or plasma calcium measurement (mass/volume) 8.8 mg/dL 7.6-11.0 [facility] Carbon dioxide, total [Moles /volume] in Central venous bloodOrdered By: Wilberto Villafuerte on 06-28-2024 CO2 [Moles/Vol] 30.4 mmol/L 21.0-32.0 [facility] Carbon dioxide, total [Moles/volume] in Central venous blood 30.4 mmol/L 21.0-32.0 [facility] Chloride assayOrdered By: Anh Villafuerte on 06-28-2024 Chloride [Moles/Vol] 108 mmol/L 98-108 [facility] Chloride assay 108 mmol/L 98-108 [facility] Creatinine [Mass/Vol]Ordered By: Wilberto Villafuerte on 06-28-2024 Serum creatinine measurement (mass/volume) 1.14 mg/dL 0.70-1.20 [facility] Erythrocyte distribution wid th (RBC) [Ratio]Ordered By: Wilberto Villafuerte on 06-28-2024 Erythrocyte distribution width ratio 20.7 % High 11.6-14.6 [facility] Erythrocyte distribution width standard deviation 71.3 fl High 35.1-43.9 [facility] Erythrocyte distribution wid th ratioOrdered By: Wilberto Villafuerte on 06-28-2024 Erythrocyte distribution width (RBC) [Ratio] 20.7 % High 11.6-14.6 [facility] Erythrocyte distribution wid th standard deviationOrdered By: Wilberto Villafuerte on 06-28-2024 Erythrocyte distribution width (RBC) [Ratio] 71.3 fl High 35.1-43.9 [facility] GFR/1.73 sq M.predicted idania g non-blacks MDRD (S/P/Bld) [Vol rate/Area]Ordered By: Wilberto Villafuerte on 06-28-2024 Glomerular filtration rate (GFR) estimation/1.73 sq m using serum, plasma, or whole b 67 >60 [facility] Glomerular filtration rate ( GFR) estimation/1.73 sq m using serum, plasma, or whole bOrdered By: Wilberto Villafuerte on 06-28-2024 GFR/1.73 sq M.predicted among non-blacks MDRD (S/P/Bld) [Vol rate/Area] 67 mL/min/{1.73_m2} >60 [facility] Glucose [Mass/Vol]Ordered By : Wilberto Villafuerte on 06-28-2024 Serum glucose measurement (mass/volume) 112 mg/dL High 70-99 [facility] Hematocrit Auto (Bld) [Volum e fraction]Ordered By: Wilberto Villafuerte on 06-28-2024 Hematocrit (Bld) [Volume fraction] 28.7 % Low 40-54 [facility] Automated blood hematocrit (percentage) 28.7 % Low 40-54 [facility] Hemoglobin measurementOrdere d By: Wilberto Villafuerte on 06-28-2024 Hemoglobin (Bld) [Mass/Vol] 8.8 g/dL Low 13.0-16.5 [facility] Hemoglobin measurement 8.8 g/dL Low 13.0-16.5 [facility] MCV (RBC) [Entitic vol]Order ed By: Wilberto Villafuerte on 06-28-2024 MCV (mean corpuscular volume) determination 94.7 fL High 80-94 [facility] MCV (mean corpuscular volume ) determinationOrdered By: Wilberto Villafuerte on 06-28-2024 MCV (RBC) [Entitic vol] 94.7 fL High 80-94 [facility] Manual differential comment Sohan (Bld) [Interp]Ordered By: Wilberto Villafuerte on 06-28-2024 Blood manual differential comment interpretation (narrative result) See comment [facility] Mean corpuscular hemoglobin (MCH) determinationOrdered By: Wilberto Villafuerte on 06-28-2024 MCH (RBC) [Entitic mass] 29.0 pg 27.0-32.0 [facility] Mean corpuscular hemoglobin (MCH) determination 29.0 pg 27.0-32.0 [facility] Mean corpuscular hemoglobin concentration (MCHC) determinationOrdered By: Wilberto Villafuerte on 06-28-2024 Mean corpuscular hemoglobin concentration (MCHC) determination 30.7 g/dL Low 32-36 [facility] Mean platelet volume determi nationOrdered By: Wilberto Villafuerte on 06-28-2024 Mean platelet volume determination 11.6 fl 6.2-12.0 [facility] Platelet countOrdered By: Anh Villafuerte on 06-28-2024 Platelets (Bld) [#/Vol] 309 10*3/uL 150-450 [facility] Platelet count 309 K/mm3 150-450 [facility] Potassium (Unsp spec) [Mass/ Vol]Ordered By: Wilberto Villafuerte on 06-28-2024 Potassium measurement (mass/volume) 4.2 mmol/L 3.3-5.1 [facility] Potassium measurement (mass/ volume)Ordered By: Wilberto Villafuerte on 06-28-2024 Potassium (Unsp spec) [Mass/Vol] 4.2 mmol/L 3.3-5.1 [facility] RBC Auto (Bld) [#/Vol]Ordere d By: Wilberto Villafuerte on 06-28-2024 RBC (Bld) [#/Vol] 3.03 10*6/uL Low 4.6-6.2 [facility] Automated blood erythrocyte count 3.03 M/mm3 Low 4.6-6.2 [facility] Serum creatinine measurement (mass/volume)Ordered By: Wilberto Villafuerte on 06-28-2024 Creatinine [Mass/Vol] 1.14 mg/dL 0.70-1.20 [facility] Serum glucose measurement (m ass/volume)Ordered By: Wilberto Villafuerte on 06-28-2024 Glucose [Mass/Vol] 112 mg/dL High 70-99 [facility] Serum or plasma calcium yocasta urement (mass/volume)Ordered By: Wilberto Villafuerte on 06-28-2024 Calcium [Mass/Vol] 8.8 mg/dL 7.6-11.0 [facility] Serum or plasma urea nitroge n measurement (mass/volume)Ordered By: Wilberto Villafuerte on 06-28-2024 Urea nitrogen [Mass/Vol] 38 mg/dL High 4-19 [facility] Sodium levelOrdered By: Jacob Villafuerte on 06-28-2024 Sodium [Moles/Vol] 146 mmol/L High 133-145 [facility] Sodium level 146 mmol/L High 133-145 [facility] Trough vancomycin levelOrder ed By: Wilberto Villafuerte on 06-28-2024 Vancomycin trough [Mass/Vol] 18.5 ug/mL High 5.0-15.0 [facility] Urea nitrogen [Mass/Vol]Orde red By: Wilberto Villafuerte on 06-28-2024 Serum or plasma urea nitrogen measurement (mass/volume) 38 mg/dL High -19 [facility] Vancomycin trough [Mass/Vol] Ordered By: Wilberto Villafuerte on 06-28-2024 Trough vancomycin level 18.5 ug/mL High 5.0-15.0 [facility] White blood cell (WBC) count Ordered By: Wilberto Villafuerte on 06-28-2024 WBC (Bld) [#/Vol] 15.6 10*3/uL High 4.4-11.0 [facility] White blood cell (WBC) count 15.6 K/mm3 High 4.4-11.0 [facility] Absolute lymphocyte countOrd ered By: Jordan Ortiz on 06-25-2024 Lymphocytes Auto (Unsp spec) [#/Vol] 0.88 10*3/uL 0.83-4.51 [facility] Absolute neutrophil countOrd ered By: Jordan Ortiz on 06-25-2024 Absolute neutrophil count 5.5 X10^3/uL 2.0-7.7 [facility] Anion gap [Moles/Vol]Ordered By: Jordan Ortiz on 06-25-2024 Anion gap in Serum or Plasma 8 5-15 [facility] Anion gap in Serum or Plasma Ordered By: Jordan Ortiz on 06-25-2024 Anion gap [Moles/Vol] 8 mmol/L 5-15 [facility] Automated lymphocyte count a s percentage of total leukocytesOrdered By: Jordan Ortiz on 06-25-2024 Lymphocytes/100 WBC Auto (Unsp spec) 12.3 % Low 19-41 [facility] BUN/creatinine ratioOrdered By: Jordan Ortiz on 06-25-2024 Urea nitrogen/Creatinine [Mass ratio] 41.4 mg/mg High 10-20 [facility] BUN/creatinine ratio 41.4 RATIO High 10-20 [facility] Basophil percentageOrdered B y: Jordan Ortiz on 06-25-2024 Basophils/100 WBC (Bld) 0.0 % 0-1 [facility] Basophil percentage 0.0 % 0-1 [facility] Blood manual differential co mment interpretation (narrative result)Ordered By: Jordan Ortiz on 06-25-2024 Manual differential comment Sohan (Bld) [Interp] SCANNED [facility] Calcium [Mass/Vol]Ordered By : Jordan Ortiz on 06-25-2024 Serum or plasma calcium measurement (mass/volume) 8.6 mg/dL 7.6-11.0 [facility] Carbon dioxide, total [Moles /volume] in Central venous bloodOrdered By: Jordan Ortiz on 06-25-2024 CO2 [Moles/Vol] 27.1 mmol/L 21.0-32.0 [facility] Carbon dioxide, total [Moles/volume] in Central venous blood 27.1 mmol/L 21.0-32.0 [facility] Chloride assayOrdered By: Nixon Ortiz on 05-02-2025 Chloride [Moles/Vol] 103 mmol/L 98-108 [facility] Chloride assay 103 mmol/L 98-108 [facility] Creatinine [Mass/Vol]Ordered By: Jordan Ortiz on 06-25-2024 Serum creatinine measurement (mass/volume) 1.12 mg/dL 0.70-1.20 [facility] Eosinophil percentageOrdered By: Jordan Ortiz on 06-25-2024 Eosinophils/100 WBC (Bld) 0.3 % 0-5 [facility] Eosinophil percentage 0.3 % 0-5 [facility] Erythrocyte distribution wid th (RBC) [Ratio]Ordered By: Jordan Ortiz on 06-25-2024 Erythrocyte distribution width ratio 20.3 % High 11.6-14.6 [facility] Erythrocyte distribution width standard deviation 69.2 fl High 35.1-43.9 [facility] Erythrocyte distribution wid th ratioOrdered By: Jordan Ortiz on 06-25-2024 Erythrocyte distribution width (RBC) [Ratio] 20.3 % High 11.6-14.6 [facility] Erythrocyte distribution wid th standard deviationOrdered By: Jordan Ortiz on 06-25-2024 Erythrocyte distribution width (RBC) [Ratio] 69.2 fl High 35.1-43.9 [facility] Estimation of creatinine montez aranceOrdered By: Jordan Ortiz on 06-25-2024 Estimation of creatinine clearance 69.29 ml/min 50-250 [facility] GFR/1.73 sq M.predicted idania g non-blacks MDRD (S/P/Bld) [Vol rate/Area]Ordered By: Jordan Ortiz on 06-25-2024 Glomerular filtration rate (GFR) estimation/1.73 sq m using serum, plasma, or whole b 69 >60 [facility] Glomerular filtration rate ( GFR) estimation/1.73 sq m using serum, plasma, or whole bOrdered By: Jordan Ortiz on 06-25-2024 GFR/1.73 sq M.predicted among non-blacks MDRD (S/P/Bld) [Vol rate/Area] 69 mL/min/{1.73_m2} >60 [facility] Glucose [Mass/Vol]Ordered By : Jordan Ortiz on 06-25-2024 Serum glucose measurement (mass/volume) 241 mg/dL High 70-99 [facility] Glucose measurement at bedsi deOrdered By: Jordan Ortiz on 06-25-2024 Glucose [Mass/Vol] 147 mg/dL High 74-106 [facility] Glucose measurement at bedside 147 mg/dL High 74-106 [facility] Hematocrit Auto (Bld) [Volum e fraction]Ordered By: Jordan Ortiz on 06-25-2024 Hematocrit (Bld) [Volume fraction] 24.7 % Low 40-54 [facility] Automated blood hematocrit (percentage) 24.7 % Low 40-54 [facility] Hemoglobin measurementOrdere d By: Jordan Ortiz on 06-25-2024 Hemoglobin (Bld) [Mass/Vol] 7.7 g/dL Low 13.0-16.5 [facility] Hemoglobin measurement 7.7 g/dL Low 13.0-16.5 [facility] Immature granulocytes/100 WB C Auto (Bld)Ordered By: Jordan Ortiz on 06-25-2024 Immature granulocytes/100 WBC (Bld) 1.500 % High 0.0-0.9 [facility] Automated immature granulocyte percentage 1.500 % High 0.0-0.9 [facility] Lymphocytes Auto (Unsp spec) [#/Vol]Ordered By: Jordan Ortiz on 06-25-2024 Absolute lymphocyte count 0.88 X10^3/uL 0.83-4.51 [facility] Lymphocytes/100 WBC Auto (Un sp spec)Ordered By: Jordan Ortiz on 06-25-2024 Automated lymphocyte count as percentage of total leukocytes 12.3 % Low 19-41 [facility] MCV (RBC) [Entitic vol]Order ed By: Jordan Ortiz on 06-25-2024 MCV (mean corpuscular volume) determination 92.2 fL 80-94 [facility] MCV (mean corpuscular volume ) determinationOrdered By: Jordan Ortiz on 06-25-2024 MCV (RBC) [Entitic vol] 92.2 fL 80-94 [facility] Magnesium (Unsp spec) [Mass/ Vol]Ordered By: Janice Mackey on 06-25-2024 Magnesium measurement (mass/volume) 2.0 mg/dL 1.5-2.2 [facility] Magnesium measurement (mass/ volume)Ordered By: Janice Mackey on 06-25-2024 Magnesium (Unsp spec) [Mass/Vol] 2.0 mg/dL 1.5-2.2 [facility] Manual differential comment Sohan (Bld) [Interp]Ordered By: Jordan Ortiz on 06-25-2024 Blood manual differential comment interpretation (narrative result) SCANNED [facility] Mean corpuscular hemoglobin (MCH) determinationOrdered By: Jordan Ortiz on 06-25-2024 MCH (RBC) [Entitic mass] 28.7 pg 27.0-32.0 [facility] Mean corpuscular hemoglobin (MCH) determination 28.7 pg 27.0-32.0 [facility] Mean corpuscular hemoglobin concentration (MCHC) determinationOrdered By: Jordan Ortiz on 06-25-2024 Mean corpuscular hemoglobin concentration (MCHC) determination 31.2 g/dL Low 32-36 [facility] Mean platelet volume determi nationOrdered By: Jordan Ortiz on 06-25-2024 Mean platelet volume determination 11.0 fl 6.2-12.0 [facility] Monocyte percentageOrdered B y: Jordan Ortiz on 06-25-2024 Monocytes/100 WBC (Bld) 8.5 % 0-10 [facility] Monocyte percentage 8.5 % 0-10 [facility] Neutrophil percentageOrdered By: Jordan Ortiz on 06-25-2024 Neutrophils/100 WBC (Bld) 77.4 % High 47-70 [facility] Neutrophil percentage 77.4 % High 47-70 [facility] [facility] No Panel InformationOrdered By: Jordan Ortiz on 06-25-2024 2+ [facility] Nucleated red blood cell per centageOrdered By: Jordan Ortiz on 06-25-2024 Nucleated red blood cell percentage 0 % 0-5 [facility] Platelet countOrdered By: Nixon Ortiz on 06-25-2024 Platelets (Bld) [#/Vol] 186 10*3/uL 150-450 [facility] Platelet count 186 K/mm3 150-450 [facility] Potassium (Unsp spec) [Mass/ Vol]Ordered By: Jordan Ortiz on 06-25-2024 Potassium measurement (mass/volume) 4.3 mmol/L 3.3-5.1 [facility] Potassium measurement (mass/ volume)Ordered By: Jordan Ortiz on 06-25-2024 Potassium (Unsp spec) [Mass/Vol] 4.3 mmol/L 3.3-5.1 [facility] RBC Auto (Bld) [#/Vol]Ordere d By: Jordan Ortiz on 06-25-2024 RBC (Bld) [#/Vol] 2.68 10*6/uL Low 4.6-6.2 [facility] Automated blood erythrocyte count 2.68 M/mm3 Low 4.6-6.2 [facility] Serum creatinine measurement (mass/volume)Ordered By: Jordan Ortiz on 06-25-2024 Creatinine [Mass/Vol] 1.12 mg/dL 0.70-1.20 [facility] Serum glucose measurement (m ass/volume)Ordered By: Jordan Ortiz on 06-25-2024 Glucose [Mass/Vol] 241 mg/dL High 70-99 [facility] Serum or plasma calcium yocasta urement (mass/volume)Ordered By: Jordan Ortiz on 06-25-2024 Calcium [Mass/Vol] 8.6 mg/dL 7.6-11.0 [facility] Serum or plasma urea nitroge n measurement (mass/volume)Ordered By: Jordan Ortiz on 06-25-2024 Urea nitrogen [Mass/Vol] 46 mg/dL High - [facility] Sodium levelOrdered By: Matthias Ortiz on 06-25-2024 Sodium [Moles/Vol] 138 mmol/L 133-145 [facility] Sodium level 138 mmol/L 133-145 [facility] Urea nitrogen [Mass/Vol]Orde red By: Jordan Ortiz on 06-25-2024 Serum or plasma urea nitrogen measurement (mass/volume) 46 mg/dL High - [facility] White blood cell (WBC) count Ordered By: Jordan Ortiz on 06-25-2024 WBC (Bld) [#/Vol] 7.2 10*3/uL 4.4-11.0 [facility] White blood cell (WBC) count 7.2 K/mm3 4.4-11.0 [facility] Trough vancomycin levelOrder ed By: Wilberto Villafuerte on 06-24-2024 Vancomycin trough [Mass/Vol] 18.8 ug/mL High 5.0-15.0 [facility] Vancomycin trough [Mass/Vol] Ordered By: Wilberto Villafuerte on 06-24-2024 Trough vancomycin level 18.8 ug/mL High 5.0-15.0 [facility] Blood cultureOrdered By: Brock Villafuerte on 06-23-2024 Bacteria identified Cx Nom (Bld) No growth in 5 days. [facility] Blood culture No growth in 5 days. [facility] Macrocytes detectionOrdered By: Jordan Ortiz on 06-23-2024 Macrocytes Ql (Bld) 1+ [facility] Microcytosis evaluation pane lOrdered By: Jordan Ortiz on 06-23-2024 Microcytosis evaluation panel 1+ [facility] Blood cultureOrdered By: Tino Ortiz on 06-22-2024 Bacteria identified Cx Nom (Bld) No growth in 5 days. [facility] Blood culture No growth in 5 days. [facility] Bacteria identified Cx Nom (Bld) No growth in 5 days. [facility] Blood culture No growth in 5 days. [facility] Serum or plasma vancomycin m easurement (mass/volume)Ordered By: Jordan Ortiz on 06-22-2024 Vancomycin [Mass/Vol] 16.3 ug/mL High 0.0-15.0 [facility] Serum phosphorus measurement Ordered By: Jordan Ortiz on 06-22-2024 Serum phosphorus measurement 5.0 mg/dL High 2.7-4.5 [facility] Vancomycin [Mass/Vol]Ordered By: Jordan Ortiz on 06-22-2024 Serum or plasma vancomycin measurement (mass/volume) 16.3 ug/mL High 0.0-15.0 [facility] ALP [Catalytic activity/Vol] Ordered By: Mable Pritchard on 06-21-2024 Serum or plasma alkaline phosphatase measurement 57 U/L 40-129 [facility] ALT [Catalytic activity/Vol] Ordered By: Mable Pritchard on 06-21-2024 Serum or plasma alanine aminotransferase (ALT) measurement 16 U/L <47 [facility] Albumin [Mass/Vol]Ordered By : Mable Pritchard on 06-21-2024 Serum or plasma albumin measurement (mass/volume) 3.3 g/dL Low 3.4-4.8 [facility] Albumin/Globulin [Mass ratio ]Ordered By: Mable Pritchard on 06-21-2024 Serum or plasma albumin/globulin mass ratio 1.1 RATIO 0.9-2.4 [facility] Bilirubin, totalOrdered By: Mable Pritchard on 06-21-2024 Bilirubin [Mass/Vol] 0.78 mg/dL 0.00-1.30 [facility] Bilirubin, total 0.78 mg/dL 0.00-1.30 [facility] Gram stainOrdered By: Anthony Singleton on 06-21-2024 Microscopic observation Gram stain Nom (Unsp spec) [facility] Microbial respiratory cultur eOrdered By: Anthony Singleton on 06-21-2024 Microorganism identified Cx Nom (Unsp spec) Meth. resistant Staph. aureus Abnormal [facility] Microorganism identified Cx Nom (Unsp spec)Ordered By: Anthony Singleton on 06-21-2024 Microbial respiratory culture Meth. resistant Staph. aureus Abnormal [facility] No Panel InformationOrdered By: Mable Pritchard on 06-21-2024 52 U/L High <38 [facility] Ovalocyte detectionOrdered B y: Mable Pritchard on 06-21-2024 Ovalocytes LM Ql (Bld) RARE [facility] Ovalocytes LM Ql (Bld)Ordere d By: Mable Pritchard on 06-21-2024 Ovalocyte detection RARE [facility] Serum globulin measurementOr dered By: Mable Pritchard on 06-21-2024 Globulin (S) [Mass/Vol] 2.9 g/dL 2.2-4.2 [facility] Serum globulin measurement 2.9 g/dL 2.2-4.2 [facility] Serum or plasma alanine barber otransferase (ALT) measurementOrdered By: Mable Pritchard on 06-21-2024 ALT [Catalytic activity/Vol] 16 U/L <47 [facility] Serum or plasma albumin yocasta urement (mass/volume)Ordered By: Mable Pritchard on 06-21-2024 Albumin [Mass/Vol] 3.3 g/dL Low 3.4-4.8 [facility] Serum or plasma albumin/glob ulin mass ratioOrdered By: Mable Pritchard on 06-21-2024 Albumin/Globulin [Mass ratio] 1.1 {ratio} 0.9-2.4 [facility] Serum or plasma alkaline justin sphatase measurementOrdered By: Mable Pritchard on 06-21-2024 ALP [Catalytic activity/Vol] 57 U/L 40-129 [facility] Total proteinOrdered By: Orly Pritchard on 06-21-2024 Protein [Mass/Vol] 6.2 g/dL 5.9-8.4 [facility] Total protein 6.2 g/dL 5.9-8.4 [facility] Toxic granules LM Ql (Bld)Or dered By: Mable Pritchard on 06-21-2024 Toxic leukocyte granulation detection 2+ [facility] Toxic leukocyte granulation detectionOrdered By: Mable Pritchard on 06-21-2024 Toxic granules LM Ql (Bld) 2+ [facility] Activated partial thrombopla stin time (aPTT) in platelet poor plasma by coagulation aOrdered By: Sal Driscoll on 06-20-2024 aPTT Coag (PPP) [Time] 21.3 s Low 24.1-36.2 [facility] Arterial patency Wrist arter y --pre arterial punctureOrdered By: Eva Marie on 06-20-2024 Assessment of wrist artery patency prior to arterial puncture Positive [facility] Assessment of wrist artery p atency prior to arterial punctureOrdered By: Eva Marie on 06-20-2024 Arterial patency Wrist artery --pre arterial puncture Positive [facility] Bacteria LM.HPF (Urine sed) [#/Area]Ordered By: Sal Driscoll on 06-20-2024 Urine sediment bacteria count by microscopy (number/high power field) 1+ /hpf None Seen [facility] Base excess Calc (BldV) [Mol es/Vol]Ordered By: Eva Marie on 06-20-2024 Blood base excess determination 10 mmol/L High -2-2 [facility] Basophilic stippling LM Ql ( Bld)Ordered By: Sal Driscoll on 06-20-2024 Erythrocyte basophilic stippling detection RARE [facility] Bilirubin Test strip Ql (U)O rdered By: Sal Driscoll on 06-20-2024 Bilirubin Ql (U) Negative Negative [facility] Blood base excess determinat ionOrdered By: Eva Marie on 06-20-2024 Base excess Calc (BldV) [Moles/Vol] 10 mmol/L High -2-2 [facility] Blood bicarbonate measuremen tOrdered By: Eav Marie on 06-20-2024 HCO3 (Bld) [Moles/Vol] 33.4 mmol/L High - [facility] Blood bicarbonate measurement 33.4 mmol/L High [facility] Blood cultureOrdered By: Magali Driscoll on 06-20-2024 Bacteria identified Cx Nom (Bld) Meth. resistant Staph. aureus Abnormal [facility] Blood culture Meth. resistant Stap h. aureus Abnormal [facility] Blood polychromasia detectio n by light microscopyOrdered By: Sal Driscoll on 06-20-2024 Polychromasia LM Ql (Bld) 1+ [facility] Clarity (U)Ordered By: Sal Driscoll on 06-20-2024 Urine clarity Clear Clear [facility] Color (U)Ordered By: Sal key on 06-20-2024 Urine color determination Yellow Yellow [facility] Determination of fraction of inspired oxygenOrdered By: Eva Marie on 06-20-2024 Determination of fraction of inspired oxygen 4.0 [facility] Erythrocyte basophilic stipp ling detectionOrdered By: Sal Driscoll on 06-20-2024 Basophilic stippling LM Ql (Bld) RARE [facility] Glucose Ql (U)Ordered By: Yanelis Driscoll on 06-20-2024 Urine glucose detection 1000 mg/dl High Normal [facility] Influenza virus A and B and SARS-CoV-2 (COVID-19) and Respiratory syncytial virus RNAOrdered By: Sal Driscoll on 06-20-2024 SARS-CoV-2 (COVID-19) RNA JUSTIN+probe Ql (Unsp spec) [facility] International normalized rat io (INR) calculationOrdered By: Sal Driscoll on 06-20-2024 International normalized ratio (INR) calculation 1.0 [facility] Ketones Test strip Ql (U)Ord ered By: Sal Driscoll on 06-20-2024 Ketones Ql (U) Negative Negative [facility] Lactic acid measurementOrder ed By: Sal Driscoll on 06-20-2024 Lactic acid measurement 1.1 mmol/L 0.0-2.0 [facility] Leukocyte esterase Test stri p Ql (U)Ordered By: Sal Driscoll on 06-20-2024 Urine leukocyte esterase detection by dipstick 25 /ul High Negative [facility] Measurement, pHOrdered By: Gurwinder Marie on 06-20-2024 pH (Unsp spec) 7.46 [pH] High 7.35-7.45 [facility] Microscopic analysis of urin e for red blood cells (RBC)Ordered By: Sal Driscoll on 06-20-2024 Microscopic analysis of urine for red blood cells (RBC) 0-5 SEEN /hpf 0-5 [facility] Mucus LM Ql (Urine sed)Order ed By: Sal Driscoll on 06-20-2024 Mucus Ql (Urine sed) 0 SEEN /hpf [facility] Mucus detection in urine sediment by light microscopy 0 SEEN /hpf [facility] Natriuretic peptide.B prohor sena N-Terminal [Mass/Vol]Ordered By: Sal Driscoll on 06-20-2024 Natriuretic peptide.B prohormone N-Terminal [Mass/volume] in Serum or Plasma 4069 pg/mL High <900 [facility] Natriuretic peptide.B prohor sena N-Terminal [Mass/volume] in Serum or PlasmaOrdered By: Sal Driscoll on 06-20-2024 Natriuretic peptide.B prohormone N-Terminal [Mass/Vol] 4069 pg/mL High <900 [facility] Nitrite Test strip Ql (U)Ord ered By: Sal Driscoll on 06-20-2024 Nitrite Ql (U) Negative Negative [facility] No Panel InformationOrdered By: Eva Marie on 06-20-2024 ART [facility] L Radial [facility] Not entered [facility] Cannula [facility] Organism identificationOrder ed By: Sal Driscoll on 06-20-2024 Microorganism identified Cx Nom (Unsp spec) Meth. resistant Staph. aureus Abnormal [facility] Oxygen saturation measuremen tOrdered By: Eva Marie on 06-20-2024 Oxygen saturation measurement 87 % Low 95-99 [facility] Partial pressure of carbon d ioxide measurementOrdered By: Eva Marie on 06-20-2024 Partial pressure of carbon dioxide measurement 47.0 mmHg High 35-45 [facility] Partial pressure of oxygen m easurementOrdered By: Eva Marie on 06-20-2024 Partial pressure of oxygen measurement 51 mmHG Low 75-100 [facility] Platelet estimateOrdered By: Sal Driscoll on 06-20-2024 Platelets LM Ql (Bld) [facility] Platelets LM Ql (Bld)Ordered By: Sal Driscoll on 06-20-2024 Platelet estimate A [facility] Polychromasia LM Ql (Bld)Ord ered By: Sal Driscoll on 06-20-2024 Blood polychromasia detection by light microscopy 1+ [facility] Procalcitonin IA [Mass/Vol]O rdered By: Sal Driscoll on 06-20-2024 Procalcitonin [Mass/volume] in Serum or Plasma by Immunoassay 0.10 ng/mL <0.11 [facility] Procalcitonin [Mass/volume] in Serum or Plasma by ImmunoassayOrdered By: Sal Driscoll on 06-20-2024 Procalcitonin IA [Mass/Vol] 0.10 ng/mL <0.11 [facility] Protein Test strip Ql (U)Ord ered By: Sal Driscoll on 06-20-2024 Protein Ql (U) 30 mg/dl High Negative [facility] Urine protein assay by test strip, semi-quantitative 30 mg/dl High Negative [facility] Prothrombin timeOrdered By: Sal Driscoll on 06-20-2024 PT Coag (PPP) [Time] 13.4 s 11.7-14.9 [facility] Prothrombin time 13.4 SECONDS 11.7-14.9 [facility] Respiratory pathogens detect ion panel by molecular detection methodOrdered By: Mable Pritchard on 06-20-2024 Respiratory pathogens DNA and RNA panel JUSTIN+probe (Resp) [facility] Specific gravity (U) [Rel de nsity]Ordered By: Sal Driscoll on 06-20-2024 Urine specific gravity measurement 1.010 1.002-1.030 [facility] Squamous epithelial cells de tection in urine sediment by light microscopyOrdered By: Sal Driscoll on 06-20-2024 Epithelial cells.squamous LM Ql (Urine sed) 0-5 SEEN /hpf 0-5 [facility] Total carbon dioxide measure mentOrdered By: Eva Marie on 06-20-2024 CO2 [Moles/Vol] 35 mmol/L [facility] Total carbon dioxide measurement 35 mmol/L [facility] Transitional cells detection in urine sediment by light microscopyOrdered By: Sal Driscoll on 06-20-2024 Transitional cells LM Ql (Urine sed) 0-5 SEEN /hpf 0-5 [facility] Urine Legionella pneumophila antigen detectionOrdered By: Mable Pritchard on 06-20-2024 L. pneumophila Ag Ql (U) [facility] Urine blood detectionOrdered By: Sal Driscoll on 06-20-2024 Urine blood detection 10 /ul High Negative [facility] Urine clarityOrdered By: Magali Driscoll on 06-20-2024 Clarity (U) Clear Clear [facility] Urine color determinationOrd ered By: Sal Driscoll on 06-20-2024 Color (U) Yellow Yellow [facility] Urine cultureOrdered By: Magali Driscoll on 06-20-2024 Bacteria identified Cx Nom (U) Yeast, not Elisha albicans Abnormal [facility] Urine culture Yeast, not Elisha albicans Abnormal [facility] Urine glucose detectionOrder ed By: Sal Driscoll on 06-20-2024 Glucose Ql (U) 1000 mg/dl High Normal [facility] Urine leukocyte esterase det ection by dipstickOrdered By: Sal Driscoll on 06-20-2024 Leukocyte esterase Test strip Ql (U) 25 /ul High Negative [facility] Urine pHOrdered By: Sal hinson on 06-20-2024 pH (U) 6.5 [pH] 5.0 - 8.0 [facility] Urine sediment bacteria coun t by microscopy (number/high power field)Ordered By: Sal Driscoll on 06-20-2024 Bacteria LM.HPF (Urine sed) [#/Area] 1 /[HPF] None Seen [facility] Urine specific gravity measu rementOrdered By: Sal Driscoll on 06-20-2024 Specific gravity (U) [Rel density] 1.010 1.002-1.030 [facility] Urine total bilirubin detect ion by test stripOrdered By: Sal Driscoll on 06-20-2024 Urine total bilirubin detection by test strip Negative Negative [facility] Urine urobilinogen measureme ntOrdered By: Sal Driscoll on 06-20-2024 Urobilinogen Ql (U) Normal mg/dl Normal [facility] Urobilinogen Ql (U)Ordered B y: Sal Driscoll on 06-20-2024 Urine urobilinogen measurement Normal mg/dl Normal [facility] White blood cell countOrdere d By: Sal Driscoll on 06-20-2024 White blood cell count 10-25 SEEN /hpf 0-5 [facility] White blood cell count 10-25 SEEN /hpf 0-5 [facility] aPTT Coag (PPP) [Time]Ordere d By: Sal Driscoll on 06-20-2024 Activated partial thromboplastin time (aPTT) in platelet poor plasma by coagulation a 21.3 Seconds Low 24.1-36.2 [facility] pH (U)Ordered By: Sal pollock on 06-20-2024 Urine pH 6.5 5.0 - 8.0 [facility] pH (Unsp spec)Ordered By: Henrique Marie on 06-20-2024 Measurement, pH 7.46 High 7.35-7.45 [facility] ALP [Catalytic activity/Vol] Ordered By: Tobi Zapata on 04-27-2024 Serum or plasma alkaline phosphatase measurement 73 U/L 40-129 [facility] ALT [Catalytic activity/Vol] Ordered By: Tobi Zapata on 04-27-2024 Serum or plasma alanine aminotransferase (ALT) measurement 13 U/L <47 [facility] Absolute lymphocyte countOrd ered By: Tobi Zapata on 04-27-2024 Lymphocytes Auto (Unsp spec) [#/Vol] 1.47 10*3/uL 0.83-4.51 [facility] Absolute neutrophil countOrd ered By: Tobi Zapata on 04-27-2024 Absolute neutrophil count 5.8 X10^3/uL 2.0-7.7 [facility] Albumin [Mass/Vol]Ordered By : Tobi Zapata on 04-27-2024 Serum or plasma albumin measurement (mass/volume) 3.9 g/dL 3.4-4.8 [facility] Albumin/Globulin [Mass ratio ]Ordered By: Tobi Zapata on 04-27-2024 Serum or plasma albumin/globulin mass ratio 1.5 RATIO 0.9-2.4 [facility] Anion gap [Moles/Vol]Ordered By: Tobi Zapata on 04-27-2024 Anion gap in Serum or Plasma 10 5-15 [facility] Anion gap in Serum or Plasma Ordered By: Tobi Zapata on 04-27-2024 Anion gap [Moles/Vol] 10 mmol/L 5-15 [facility] Automated lymphocyte count a s percentage of total leukocytesOrdered By: Tobi Zapata on 04-27-2024 Lymphocytes/100 WBC Auto (Unsp spec) 17.7 % Low 19-41 [facility] BUN/creatinine ratioOrdered By: Tobi Zapata on 04-27-2024 Urea nitrogen/Creatinine [Mass ratio] 17.8 mg/mg 10-20 [facility] BUN/creatinine ratio 17.8 RATIO 10-20 [facility] Basophil percentageOrdered B y: Tobi Zapata on 04-27-2024 Basophils/100 WBC (Bld) 0.4 % 0-1 [facility] Basophil percentage 0.4 % 0-1 [facility] Bilirubin, totalOrdered By: Tobi Zapata on 04-27-2024 Bilirubin [Mass/Vol] 0.42 mg/dL 0.00-1.30 [facility] Bilirubin, total 0.42 mg/dL 0.00-1.30 [facility] Blood polychromasia detectio n by light microscopyOrdered By: Tobi Zapata on 04-27-2024 Polychromasia LM Ql (Bld) 1+ [facility] CRP [Mass/Vol]Ordered By: Fabiana Zapata on 04-27-2024 Serum or plasma C reactive protein measurement (mass/volume) 11.90 mg/L High 0.0-3.0 [facility] Calcium [Mass/Vol]Ordered By : Tobi Zapata on 04-27-2024 Serum or plasma calcium measurement (mass/volume) 8.8 mg/dL 7.6-11.0 [facility] Calculated total iron bindin g capacityOrdered By: Tobi Zapata on 04-27-2024 Calculated total iron binding capacity 252 ug/dL 250-450 [facility] Carbon dioxide, total [Moles /volume] in Central venous bloodOrdered By: Tobi Zapata on 04-27-2024 CO2 [Moles/Vol] 32.7 mmol/L High 21.0-32.0 [facility] Carbon dioxide, total [Moles/volume] in Central venous blood 32.7 mmol/L High 21.0-32.0 [facility] Chloride assayOrdered By: Fabiana Zapata on 04-27-2024 Chloride [Moles/Vol] 102 mmol/L 98-108 [facility] Chloride assay 102 mmol/L 98-108 [facility] Cobalamin (Vitamin B12) [Mas s/Vol]Ordered By: Tobi Zapata on 04-27-2024 Vitamin B12 ser/plas 767 pg/mL 180-914 [facility] Creatinine [Mass/Vol]Ordered By: Tobi Zapata on 04-27-2024 Serum creatinine measurement (mass/volume) 1.38 mg/dL High 0.70-1.20 [facility] ESR (Bld) [Velocity]Ordered By: Tobi Zapata on 04-27-2024 Erythrocyte sedimentation rate 25 mm/hr High 0-20 [facility] Eosinophil percentageOrdered By: Tobi Zapata on 04-27-2024 Eosinophils/100 WBC (Bld) 3.3 % 0-5 [facility] Eosinophil percentage 3.3 % 0-5 [facility] Erythrocyte distribution wid th (RBC) [Ratio]Ordered By: Tobi Zapata on 04-27-2024 Erythrocyte distribution width ratio 18.6 % High 11.6-14.6 [facility] Erythrocyte distribution width standard deviation 60.6 fl High 35.1-43.9 [facility] Erythrocyte distribution wid th ratioOrdered By: Tobi Zapata on 04-27-2024 Erythrocyte distribution width (RBC) [Ratio] 18.6 % High 11.6-14.6 [facility] Erythrocyte distribution wid th standard deviationOrdered By: Tobi Zapata on 04-27-2024 Erythrocyte distribution width (RBC) [Ratio] 60.6 fl High 35.1-43.9 [facility] Erythrocyte sedimentation ra teOrdered By: Tobi Zapata on 04-27-2024 ESR (Bld) [Velocity] 25 mm/h High 0-20 [facility] Erythropoietin (EPO) QnOrder ed By: Tobi Zapata on 04-27-2024 Serum or plasma erythropoietin (EPO) measurement (units/volume) 23.0 mIU/mL High 2.6-18.5 [facility] Estimation of creatinine montez aranceOrdered By: Tobi Zapata on 04-27-2024 Estimation of creatinine clearance 56.53 ml/min 50-250 [facility] Ferritin [Mass/Vol]Ordered B y: Tobi Zapata on 04-27-2024 Serum or plasma ferritin measurement (mass/volume) 80 ng/mL 37-417 [facility] Folate [Mass/Vol]Ordered By: Tobi Zapata on 04-27-2024 Folate [Mass/volume] in Serum or Plasma 7.25 ng/mL 4.60-34.80 [facility] Folate [Mass/volume] in Seru m or PlasmaOrdered By: Tobi Zapata on 04-27-2024 Folate [Mass/Vol] 7.25 ng/mL 4.60-34.80 [facility] GFR/1.73 sq M.predicted idania g non-blacks MDRD (S/P/Bld) [Vol rate/Area]Ordered By: Tobi Zapata on 04-27-2024 Glomerular filtration rate (GFR) estimation/1.73 sq m using serum, plasma, or whole b 54 Low >60 [facility] Glomerular filtration rate ( GFR) estimation/1.73 sq m using serum, plasma, or whole bOrdered By: Tobi Zapata on 04-27-2024 GFR/1.73 sq M.predicted among non-blacks MDRD (S/P/Bld) [Vol rate/Area] 54 mL/min/{1.73_m2} Low >60 [facility] Glucose [Mass/Vol]Ordered By : Tobi Zpaata on 04-27-2024 Serum glucose measurement (mass/volume) 144 mg/dL High 70-99 [facility] Hematocrit Auto (Bld) [Volum e fraction]Ordered By: Tobi Zapata on 04-27-2024 Hematocrit (Bld) [Volume fraction] 29.2 % Low 40-54 [facility] Automated blood hematocrit (percentage) 29.2 % Low 40-54 [facility] Hemoglobin (Reticulocytes) [ Entitic mass]Ordered By: Tobi Zapata on 04-27-2024 Reticulocyte hemoglobin equivalent (RET-He) measurement 26.6 pg Low 30-35 [facility] Hemoglobin measurementOrdere d By: Tobi Zapata on 04-27-2024 Hemoglobin (Bld) [Mass/Vol] 8.7 g/dL Low 13.0-16.5 [facility] Hemoglobin measurement 8.7 g/dL Low 13.0-16.5 [facility] Immature granulocytes/100 WB C Auto (Bld)Ordered By: Tobi Zapata on 04-27-2024 Immature granulocytes/100 WBC (Bld) 0.700 % 0.0-0.9 [facility] Automated immature granulocyte percentage 0.700 % 0.0-0.9 [facility] Immature platelet percentage Ordered By: Tobi Zapata on 04-27-2024 Platelets reticulated/100 platelets Auto (Bld) 3.7 % 1.0-7.9 [facility] Immature reticulocyte fracti onOrdered By: Tobi Zapata on 04-27-2024 Immature reticulocyte fraction 29.90 % High 3.00-15.90 [facility] Iron (Unsp spec) [Mass/Mass] Ordered By: Tobi Zapata on 04-27-2024 Iron measurement (mass/mass) 40 ug/dL Low 65-175 [facility] Iron measurement (mass/mass) Ordered By: Tobi Zapata on 04-27-2024 Iron (Unsp spec) [Mass/Mass] 40 ug/dL Low 65-175 [facility] Iron saturation [Mass fracti on]Ordered By: Tobi Zapata on 04-27-2024 Serum or plasma iron saturation measurement (mass fraction) 15.9 % 15.0-55.0 [facility] Lactate dehydrogenase (LDH) measurementOrdered By: Tobi Zapata on 04-27-2024 Lactate dehydrogenase (LDH) measurement 207 U/L 87-241 [facility] Lymphocytes Auto (Unsp spec) [#/Vol]Ordered By: Tobi Zapata on 04-27-2024 Absolute lymphocyte count 1.47 X10^3/uL 0.83-4.51 [facility] Lymphocytes/100 WBC Auto (Un sp spec)Ordered By: Tobi Zapata on 04-27-2024 Automated lymphocyte count as percentage of total leukocytes 17.7 % Low 19-41 [facility] MCV (RBC) [Entitic vol]Order ed By: Tobi Zapata on 04-27-2024 MCV (mean corpuscular volume) determination 89.0 fL 80-94 [facility] MCV (mean corpuscular volume ) determinationOrdered By: Tobi Zapata on 04-27-2024 MCV (RBC) [Entitic vol] 89.0 fL 80-94 [facility] Magnesium (Unsp spec) [Mass/ Vol]Ordered By: Tobi Zapata on 04-27-2024 Magnesium measurement (mass/volume) 1.9 mg/dL 1.5-2.2 [facility] Magnesium measurement (mass/ volume)Ordered By: Tobi Zapata on 04-27-2024 Magnesium (Unsp spec) [Mass/Vol] 1.9 mg/dL 1.5-2.2 [facility] Mean corpuscular hemoglobin (MCH) determinationOrdered By: Tobi Zapata on 04-27-2024 MCH (RBC) [Entitic mass] 26.5 pg Low 27.0-32.0 [facility] Mean corpuscular hemoglobin (MCH) determination 26.5 pg Low 27.0-32.0 [facility] Mean corpuscular hemoglobin concentration (MCHC) determinationOrdered By: Tobi Zapata on 04-27-2024 Mean corpuscular hemoglobin concentration (MCHC) determination 29.8 g/dL Low 32-36 [facility] Mean platelet volume determi nationOrdered By: Tobi Zapata on 04-27-2024 Mean platelet volume determination 10.3 fl 6.2-12.0 [facility] [facility] Monocyte percentageOrdered B y: Tobi Zapata on 04-27-2024 Monocytes/100 WBC (Bld) 7.6 % 0-10 [facility] Monocyte percentage 7.6 % 0-10 [facility] Neutrophil percentageOrdered By: Tobi Zapata on 04-27-2024 Neutrophils/100 WBC (Bld) 70.3 % High 47-70 [facility] Neutrophil percentage 70.3 % High 47-70 [facility] No Panel InformationOrdered By: Tobi Zapata on 04-27-2024 12 U/L <38 [facility] 212 ug/dL Low 228-428 [facility] Nucleated red blood cell per centageOrdered By: Tobi Zapata on 04-27-2024 Nucleated red blood cell percentage 0.5 % 0-5 [facility] Ovalocyte detectionOrdered B y: Tobi Zapata on 04-27-2024 Ovalocytes LM Ql (Bld) 2+ [facility] Ovalocytes LM Ql (Bld)Ordere d By: Tobi Zapata on 04-27-2024 Ovalocyte detection 2+ [facility] Platelet countOrdered By: Fabiana Zapata on 04-27-2024 Platelets (Bld) [#/Vol] 228 10*3/uL 150-450 [facility] Platelet count 228 K/mm3 150-450 [facility] Platelet estimateOrdered By: Tobi Zapata on 04-27-2024 Platelets LM Ql (Bld) a [facility] Platelets LM Ql (Bld)Ordered By: Tobi Zapata on 04-27-2024 Platelet estimate a [facility] Platelets reticulated/100 pl atelets Auto (Bld)Ordered By: Tobi Zapata on 04-27-2024 Immature platelet percentage 3.7 % 1.0-7.9 [facility] Polychromasia LM Ql (Bld)Ord ered By: Tobi Zapata on 04-27-2024 Blood polychromasia detection by light microscopy 1+ [facility] Potassium (Unsp spec) [Mass/ Vol]Ordered By: Tobi Zapata on 04-27-2024 Potassium measurement (mass/volume) 4.2 mmol/L 3.3-5.1 [facility] Potassium measurement (mass/ volume)Ordered By: Tobi Zapata on 04-27-2024 Potassium (Unsp spec) [Mass/Vol] 4.2 mmol/L 3.3-5.1 [facility] RBC Auto (Bld) [#/Vol]Ordere d By: Tobi Zapata on 04-27-2024 RBC (Bld) [#/Vol] 3.28 10*6/uL Low 4.6-6.2 [facility] Automated blood erythrocyte count 3.28 M/mm3 Low 4.6-6.2 [facility] Reticulocyte hemoglobin equi valent (RET-He) measurementOrdered By: Tobi Zapata on 04-27-2024 Hemoglobin (Reticulocytes) [Entitic mass] 26.6 pg Low 30-35 [facility] Reticulocytes Auto (Bld) [#/ Vol]Ordered By: Tobi Zapata on 04-27-2024 Reticulocytes/100 RBC (Bld) 1.82 % High 0.5-1.5 [facility] Automated blood reticulocytes count (number/volume) 1.82 % High 0.5-1.5 [facility] Serum creatinine measurement (mass/volume)Ordered By: Tobi Zapata on 04-27-2024 Creatinine [Mass/Vol] 1.38 mg/dL High 0.70-1.20 [facility] Serum globulin measurementOr dered By: Tobi Zapata on 04-27-2024 Globulin (S) [Mass/Vol] 2.5 g/dL 2.2-4.2 [facility] Serum globulin measurement 2.5 g/dL 2.2-4.2 [facility] Serum glucose measurement (m ass/volume)Ordered By: Tobi Zapata on 04-27-2024 Glucose [Mass/Vol] 144 mg/dL High 70-99 [facility] Serum or plasma C reactive p rotein measurement (mass/volume)Ordered By: Tobi Zapata on 04-27-2024 CRP [Mass/Vol] 11.90 mg/L High 0.0-3.0 [facility] Serum or plasma alanine barber otransferase (ALT) measurementOrdered By: Tobi Zapata on 04-27-2024 ALT [Catalytic activity/Vol] 13 U/L <47 [facility] Serum or plasma albumin yocasta urement (mass/volume)Ordered By: Tobi Zapata on 04-27-2024 Albumin [Mass/Vol] 3.9 g/dL 3.4-4.8 [facility] Serum or plasma albumin/glob ulin mass ratioOrdered By: Tobi Zapata on 04-27-2024 Albumin/Globulin [Mass ratio] 1.5 {ratio} 0.9-2.4 [facility] Serum or plasma alkaline justin sphatase measurementOrdered By: Tobi Zapata on 04-27-2024 ALP [Catalytic activity/Vol] 73 U/L 40-129 [facility] Serum or plasma calcium yocasta urement (mass/volume)Ordered By: Tobi Zapata on 04-27-2024 Calcium [Mass/Vol] 8.8 mg/dL 7.6-11.0 [facility] Serum or plasma erythropoiet in (EPO) measurement (units/volume)Ordered By: Tobi Zapata on 04-27-2024 Erythropoietin (EPO) Qn 23.0 mIU/mL High 2.6-18.5 [facility] Serum or plasma ferritin vasquez surement (mass/volume)Ordered By: Tobi Zapata on 04-27-2024 Ferritin [Mass/Vol] 80 ng/mL 37-417 [facility] Serum or plasma iron saturat ion measurement (mass fraction)Ordered By: Tobi Zapata on 04-27-2024 Iron saturation [Mass fraction] 15.9 % 15.0-55.0 [facility] Serum or plasma urea nitroge n measurement (mass/volume)Ordered By: Tobi Zapata on 04-27-2024 Urea nitrogen [Mass/Vol] 25 mg/dL High 06-12 [facility] Serum phosphorus measurement Ordered By: Tobi Zapata on 04-27-2024 Serum phosphorus measurement 4.2 mg/dL 2.7-4.5 [facility] Sodium levelOrdered By: Dimas Zapata on 04-27-2024 Sodium [Moles/Vol] 145 mmol/L 133-145 [facility] Sodium level 145 mmol/L 133-145 [facility] Total proteinOrdered By: Mikael Zapata on 04-27-2024 Protein [Mass/Vol] 6.4 g/dL 5.9-8.4 [facility] Total protein 6.4 g/dL 5.9-8.4 [facility] Urea nitrogen [Mass/Vol]Orde red By: Tobi Zapata on 04-27-2024 Serum or plasma urea nitrogen measurement (mass/volume) 25 mg/dL High 4-19 [facility] Vitamin B12 ser/plasOrdered By: Tobi Zapata on 04-27-2024 Cobalamin (Vitamin B12) [Mass/Vol] 767 pg/mL 180-914 [facility] White blood cell (WBC) count Ordered By: Tobi Zapata on 04-27-2024 WBC (Bld) [#/Vol] 8.3 10*3/uL 4.4-11.0 [facility] White blood cell (WBC) count 8.3 K/mm3 4.4-11.0 [facility] Absolute lymphocyte countOrd ered By: Huang Lazcano on 04-08-2024 Lymphocytes Auto (Unsp spec) [#/Vol] 0.44 10*3/uL Low 0.83-4.51 [facility] Absolute neutrophil countOrd ered By: Huang Lazcano on 04-08-2024 Absolute neutrophil count 8.3 X10^3/uL High 2.0-7.7 [facility] Automated lymphocyte count a s percentage of total leukocytesOrdered By: Huang Lazcano on 04-08-2024 Lymphocytes/100 WBC Auto (Unsp spec) 4.7 % Low 19-41 [facility] Basophil percentageOrdered B y: Huang Lazcano on 04-08-2024 Basophils/100 WBC (Bld) 0.1 % 0-1 [facility] Basophil percentage 0.1 % 0-1 [facility] Blood urea nitrogen (BUN)/cr eatinine ratioOrdered By: Huang Lazcano on 04-08-2024 Blood urea nitrogen (BUN)/creatinine ratio 30.6 RATIO High 10-20 [facility] Calcium [Mass/Vol]Ordered By : Huang Lazcano on 04-08-2024 Serum or plasma calcium measurement (mass/volume) 8.5 mg/dL 8.5-10.1 [facility] Carbon dioxide measurementOr dered By: Huang Lazcano on 04-08-2024 CO2 [Moles/Vol] 29.0 mmol/L 21.0-32.0 [facility] Carbon dioxide measurement 29.0 mmol/L 21.0-32.0 [facility] Chloride measurementOrdered By: Huang Lazcano on 04-08-2024 Chloride [Moles/Vol] 110 mmol/L High 98-107 [facility] Chloride measurement 110 mmol/L High 98-107 [facility] Creatinine [Mass/Vol]Ordered By: Huang Lazcano on 04-08-2024 Serum or plasma creatinine measurement (mass/volume) 1.47 mg/dL High 0.70-1.30 [facility] Eosinophil percentageOrdered By: Huang Lazcano on 04-08-2024 Eosinophils/100 WBC (Bld) 0.0 % 0-5 [facility] Eosinophil percentage 0.0 % 0-5 [facility] Erythrocyte distribution wid th (RBC) [Ratio]Ordered By: Huang Lazcano on 04-08-2024 Erythrocyte distribution width ratio 17.1 % High 11.6-14.6 [facility] Erythrocyte distribution width standard deviation 54.2 fl High 35.1-43.9 [facility] Erythrocyte distribution wid th ratioOrdered By: Huang Lazcano on 04-08-2024 Erythrocyte distribution width (RBC) [Ratio] 17.1 % High 11.6-14.6 [facility] Erythrocyte distribution wid th standard deviationOrdered By: Huang Lazcano on 04-08-2024 Erythrocyte distribution width (RBC) [Ratio] 54.2 fl High 35.1-43.9 [facility] Estimated glomerular filtrat ion rate (GFR) AmericanOrdered By: Huang Lazcano on 04-08-2024 Estimated glomerular filtration rate (GFR) 60 mL/min >60 [facility] Estimation of creatinine montez aranceOrdered By: Hunag Lazcano on 04-08-2024 Estimation of creatinine clearance 52.92 ml/min [facility] Glomerular filtration rate ( GFR) estimationOrdered By: Huang Lazcano on 04-08-2024 GFR/1.73 sq M.predicted among non-blacks MDRD (S/P/Bld) [Vol rate/Area] 50 mL/min/{1.73_m2} Low >60 [facility] Glomerular filtration rate (GFR) estimation 50 mL/min Low >60 [facility] Glucose measurementOrdered B y: Huang Lazcano on 04-08-2024 Glucose [Mass/Vol] 340 mg/dL High 74-106 [facility] Glucose measurement 340 mg/dL High 74-106 [facility] Glucose measurement at bedsi deOrdered By: Huang Lazcano on 04-08-2024 Glucose [Mass/Vol] 314 mg/dL High 74-106 [facility] Glucose measurement at bedside 314 mg/dL High 74-106 [facility] Hematocrit Auto (Bld) [Volum e fraction]Ordered By: Huang Lazcano on 04-08-2024 Hematocrit (Bld) [Volume fraction] 28.2 % Low 40-54 [facility] Automated blood hematocrit (percentage) 28.2 % Low 40-54 [facility] Hemoglobin measurementOrdere d By: Huang Lazcano on 04-08-2024 Hemoglobin (Bld) [Mass/Vol] 8.6 g/dL Low 13.0-16.5 [facility] Hemoglobin measurement 8.6 g/dL Low 13.0-16.5 [facility] Immature granulocytes/100 WB C Auto (Bld)Ordered By: Huang Lazcano on 04-08-2024 Immature granulocytes/100 WBC (Bld) 1.200 % High 0.0-0.9 [facility] Automated immature granulocyte percentage 1.200 % High 0.0-0.9 [facility] Lymphocytes Auto (Unsp spec) [#/Vol]Ordered By: Huang Lazcano on 04-08-2024 Absolute lymphocyte count 0.44 X10^3/uL Low 0.83-4.51 [facility] Lymphocytes/100 WBC Auto (Un sp spec)Ordered By: Huang Lazcano on 04-08-2024 Automated lymphocyte count as percentage of total leukocytes 4.7 % Low 19-41 [facility] MCV (RBC) [Entitic vol]Order ed By: Huang Lazcano on 04-08-2024 MCV (mean corpuscular volume) determination 87.6 fL 80-94 [facility] MCV (mean corpuscular volume ) determinationOrdered By: Huang Lazcano on 04-08-2024 MCV (RBC) [Entitic vol] 87.6 fL 80-94 [facility] Mean corpuscular hemoglobin (MCH) determinationOrdered By: Huang Lazcano on 04-08-2024 MCH (RBC) [Entitic mass] 26.7 pg Low 27.0-32.0 [facility] Mean corpuscular hemoglobin (MCH) determination 26.7 pg Low 27.0-32.0 [facility] Mean corpuscular hemoglobin concentration (MCHC) determinationOrdered By: Huang Lazcano on 04-08-2024 Mean corpuscular hemoglobin concentration (MCHC) determination 30.5 g/dL Low 32-36 [facility] Mean platelet volume determi nationOrdered By: Huang Lazcano on 04-08-2024 Mean platelet volume determination 11.3 fl 6.2-12.0 [facility] Monocyte percentageOrdered B y: Huang Lazcano on 04-08-2024 Monocytes/100 WBC (Bld) 5.8 % 0-10 [facility] Monocyte percentage 5.8 % 0-10 [facility] Neutrophil percentageOrdered By: Huang Lazcano on 04-08-2024 Neutrophils/100 WBC (Bld) 88.2 % High 47-70 [facility] Neutrophil percentage 88.2 % High 47-70 [facility] Nucleated red blood cell per centageOrdered By: Huang Lazcano on 04-08-2024 Nucleated red blood cell percentage 0.5 % 0-5 [facility] Platelet countOrdered By: Bessie Lazcano on 04-08-2024 Platelets (Bld) [#/Vol] 308 10*3/uL 150-450 [facility] Platelet count 308 K/mm3 150-450 [facility] Potassium measurementOrdered By: Huang Lazcano on 04-08-2024 Potassium [Moles/Vol] 4.6 mmol/L 3.5-5.1 [facility] Potassium measurement 4.6 mmol/L 3.5-5.1 [facility] RBC Auto (Bld) [#/Vol]Ordere d By: Huang Lazcano on 04-08-2024 RBC (Bld) [#/Vol] 3.22 10*6/uL Low 4.6-6.2 [facility] Automated blood erythrocyte count 3.22 M/mm3 Low 4.6-6.2 [facility] Serum anion gap measurementO rdered By: Huang Lazcano on 04-08-2024 Serum anion gap measurement 4 Low 5-15 [facility] Serum or plasma calcium yocasta urement (mass/volume)Ordered By: Huang Lazcano on 04-08-2024 Calcium [Mass/Vol] 8.5 mg/dL 8.5-10.1 [facility] Serum or plasma creatinine m easurement (mass/volume)Ordered By: Huang Lazcano on 04-08-2024 Creatinine [Mass/Vol] 1.47 mg/dL High 0.70-1.30 [facility] Serum or plasma urea nitroge n measurement (mass/volume)Ordered By: Huang Lazcano on 04-08-2024 Urea nitrogen [Mass/Vol] 45 mg/dL High 7-18 [facility] Sodium levelOrdered By: Anam Lazcano on 04-08-2024 Sodium [Moles/Vol] 143 mmol/L 136-145 [facility] Sodium level 143 mmol/L 136-145 [facility] Urea nitrogen [Mass/Vol]Orde red By: Huang Lazcano on 04-08-2024 Serum or plasma urea nitrogen measurement (mass/volume) 45 mg/dL High 7-18 [facility] White blood cell (WBC) count Ordered By: Huang Lazcano on 04-08-2024 WBC (Bld) [#/Vol] 9.4 10*3/uL 4.4-11.0 [facility] White blood cell (WBC) count 9.4 K/mm3 4.4-11.0 [facility] Gram stainOrdered By: Anthony Singleton on 04-06-2024 Microscopic observation Gram stain Nom (Unsp spec) [facility] HbA1c (Bld) [Mass fraction]O rdered By: Jordan Driscoll on 04-06-2024 Hemoglobin A1c percentage 9.2 % High 3.8-5.6 [facility] Hemoglobin A1c percentageOrd ered By: Jordan Drsicoll on 04-06-2024 HbA1c (Bld) [Mass fraction] 9.2 % High 3.8-5.6 [facility] Microbial respiratory cultur eOrdered By: Anthony Singleton on 04-06-2024 Microorganism identified Cx Nom (Unsp spec) Meth. resistant Staph. aureus Abnormal [facility] Microorganism identified Cx Nom (Unsp spec)Ordered By: Anthony Singleton on 04-06-2024 Microbial respiratory culture Meth. resistant Staph. aureus Abnormal [facility] ALP [Catalytic activity/Vol] Ordered By: Malachi Paredes on 04-05-2024 Serum or plasma alkaline phosphatase measurement 69 U/L 45-117 [facility] ALT [Catalytic activity/Vol] Ordered By: Malachi Paredes on 04-05-2024 Serum or plasma alanine aminotransferase (ALT) measurement 12 U/L Low 16-61 [facility] Activated partial thrombopla stin time (aPTT) in platelet poor plasma by coagulation aOrdered By: Malachi Paredes on 04-05-2024 aPTT Coag (PPP) [Time] 25.4 s 24.1-36.2 [facility] Albumin [Mass/Vol]Ordered By : Malachi Paredes on 04-05-2024 Serum or plasma albumin measurement (mass/volume) 3.1 g/dL Low 3.2-5.0 [facility] Albumin to globulin ratioOrd ered By: Malachi Paredes on 04-05-2024 Albumin to globulin ratio 0.8 RATIO Low 0.9-2.4 [facility] BNP (brain natriuretic pepti de measurement)Ordered By: Jordan Driscoll on 04-05-2024 Natriuretic peptide B (Bld) [Mass/Vol] 476.6 pg/mL High 0-100 [facility] BNP (brain natriuretic peptide measurement) 476.6 pg/mL High 0-100 [facility] Bacteria LM.HPF (Urine sed) [#/Area]Ordered By: Malachi Paredes on 04-05-2024 Urine sediment bacteria count by microscopy (number/high power field) 1+ /hpf None Seen [facility] Base excess Calc (BldV) [Mol es/Vol]Ordered By: Jordan Driscoll on 04-05-2024 Venous blood base excess measurement 0 mmol/L -1.0-3.5 [facility] Bilirubin Test strip Ql (U)O rdered By: Malachi Paredes on 04-05-2024 Bilirubin Ql (U) Negative Negative [facility] Bilirubin, totalOrdered By: Malachi Paredes on 04-05-2024 Bilirubin [Mass/Vol] 0.40 mg/dL 0.20-1.00 [facility] Bilirubin, total 0.40 mg/dL 0.20-1.00 [facility] Blood cultureOrdered By: Charlie Paredes on 04-05-2024 Bacteria identified Cx Nom (Bld) No growth in 5 days. [facility] Blood culture No growth in 5 days. [facility] Bacteria identified Cx Nom (Bld) No growth in 5 days. [facility] Blood culture No growth in 5 days. [facility] CO2 (BldV) [Moles/Vol]Ordere d By: Jordan Driscoll on 04-05-2024 CO2 [Moles/Vol] 26 mmol/L 23- [facility] Venous blood total carbon dioxide measurement 26 mmol/L [facility] CO2 (BldV) [Partial pressure ]Ordered By: Jordan Driscoll on 04-05-2024 Venous blood partial pressure of carbon dioxide measurement 41.2 mmHg 41-51 [facility] Clarity (U)Ordered By: Malachi Paredes on 04-05-2024 Urine clarity Cloudy Clear [facility] Color (U)Ordered By: Malachi Paredes on 04-05-2024 Urine color determination Yellow Yellow [facility] Determination of fraction of inspired oxygenOrdered By: Jordan Driscoll on 04-05-2024 Determination of fraction of inspired oxygen 6.0 [facility] Epithelial cells.squamous LM Ql (Urine sed)Ordered By: Malachi Paredes on 04-05-2024 Squamous epithelial cells detection in urine sediment by light microscopy 0-5 SEEN /hpf 0-5 [facility] Glucose Ql (U)Ordered By: Edi Paredes on 04-05-2024 Urine glucose detection 1000 mg/dl High Normal [facility] Influenza virus A and B and SARS-CoV-2 (COVID-19) and Respiratory syncytial virus RNAOrdered By: Malachi Paredes on 04-05-2024 SARS-CoV-2 (COVID-19) RNA JUSTIN+probe Ql (Unsp spec) [facility] International normalized rat io (INR) calculationOrdered By: Malachi Paredes on 04-05-2024 International normalized ratio (INR) calculation 1.0 [facility] Ketones Test strip Ql (U)Ord ered By: Malachi Paredes on 04-05-2024 Ketones Ql (U) Negative Negative [facility] Lactic acid measurementOrder ed By: Malachi Paredes on 04-05-2024 Lactic acid measurement 1.3 mmol/L 0.4-2.0 [facility] Leukocyte esterase Test stri p Ql (U)Ordered By: Malachi Paredes on 04-05-2024 Urine leukocyte esterase detection by dipstick 500 /ul High Negative [facility] Lower GI hemoglobin IA Ql (S tl)Ordered By: Malachi Paredes on 04-05-2024 Stool gastrointestinal hemoglobin detection by immunologic method Positive Abnormal [facility] Microscopic analysis of urin e for red blood cells (RBC)Ordered By: Malachi Paredes on 04-05-2024 Microscopic analysis of urine for red blood cells (RBC) 5-10 SEEN /hpf 0-5 [facility] Mucus LM Ql (Urine sed)Order ed By: Malachi Paredes on 04-05-2024 Mucus Ql (Urine sed) 0 SEEN /hpf [facility] Mucus detection in urine sediment by light microscopy 0 SEEN /hpf [facility] Nitrite Test strip Ql (U)Ord ered By: Malachi Paredes on 04-05-2024 Nitrite Ql (U) Negative Negative [facility] No Panel InformationOrdered By: Jordan Driscoll on 04-05-2024 LEONEL [facility] Not entered [facility] Cannula [facility] Air bubble in sample [facility] No Panel InformationOrdered By: Malachi Paredes on 04-05-2024 6 U/L Low 15-37 [facility] Oxygen (BldV) [Partial press ure]Ordered By: Jordan Driscoll on 04-05-2024 Venous blood partial pressure of oxygen measurement 138 mmHg High 25-40 [facility] Protein Test strip Ql (U)Ord ered By: Malachi Paredes on 04-05-2024 Protein Ql (U) 30 mg/dl High Negative [facility] Urine protein assay by test strip, semi-quantitative 30 mg/dl High Negative [facility] Prothrombin timeOrdered By: Malachi Paredes on 04-05-2024 PT Coag (PPP) [Time] 13.6 s 11.7-14.9 [facility] Prothrombin time 13.6 SECONDS 11.7-14.9 [facility] Serum globulin measurementOr dered By: Malachi Paredes on 04-05-2024 Globulin (S) [Mass/Vol] 4.0 g/dL 2.2-4.2 [facility] Serum globulin measurement 4.0 g/dL 2.2-4.2 [facility] Serum or plasma alanine barber otransferase (ALT) measurementOrdered By: Malachi Paredes on 04-05-2024 ALT [Catalytic activity/Vol] 12 U/L Low 16-61 [facility] Serum or plasma albumin yocasta urement (mass/volume)Ordered By: Malachi Paredes on 04-05-2024 Albumin [Mass/Vol] 3.1 g/dL Low 3.2-5.0 [facility] Serum or plasma alkaline justin sphatase measurementOrdered By: Malachi Paredes on 04-05-2024 ALP [Catalytic activity/Vol] 69 U/L 45-117 [facility] Specific gravity (U) [Rel de nsity]Ordered By: Malachi Paredes on 04-05-2024 Urine specific gravity measurement 1.015 1.002-1.030 [facility] Squamous epithelial cells de tection in urine sediment by light microscopyOrdered By: Malachi Paredes on 04-05-2024 Epithelial cells.squamous LM Ql (Urine sed) 0-5 SEEN /hpf 0-5 [facility] Stool gastrointestinal hemog lobin detection by immunologic methodOrdered By: Malachi Paredes on 04-05-2024 Lower GI hemoglobin IA Ql (Stl) Positive Abnormal [facility] Total creatine kinase measur ementOrdered By: Jordan Driscoll on 04-05-2024 Total creatine kinase measurement 31 U/L Low 39-308 [facility] Total proteinOrdered By: Charlie Paredes on 04-05-2024 Protein [Mass/Vol] 7.1 g/dL 6.4-8.2 [facility] Total protein 7.1 g/dL 6.4-8.2 [facility] Troponin IOrdered By: Jordan Driscoll on 04-05-2024 Troponin I 33 pg/mL 3.0-78.0 [facility] Troponin I 33 pg/mL 3.0-78.0 [facility] Urine blood detectionOrdered By: Malachi Paredes on 04-05-2024 Urine blood detection 25 /ul High Negative [facility] Urine clarityOrdered By: Charlie Paredes on 04-05-2024 Clarity (U) Cloudy Clear [facility] Urine color determinationOrd ered By: Malachi Paredes on 04-05-2024 Color (U) Yellow Yellow [facility] Urine cultureOrdered By: Charlie Paredes on 04-05-2024 Bacteria identified Cx Nom (U) Positive Abnormal [facility] Urine culture Positive Abnormal [facility] Urine glucose detectionOrder ed By: Malachi Paredes on 04-05-2024 Glucose Ql (U) 1000 mg/dl High Normal [facility] Urine leukocyte esterase det ection by dipstickOrdered By: Malachi Paredes on 04-05-2024 Leukocyte esterase Test strip Ql (U) 500 /ul High Negative [facility] Urine pHOrdered By: Malachi Paredes on 04-05-2024 pH (U) 6.0 [pH] 5.0 - 8.0 [facility] Urine sediment bacteria coun t by microscopy (number/high power field)Ordered By: Malachi Paredes on 04-05-2024 Bacteria LM.HPF (Urine sed) [#/Area] 1 /[HPF] None Seen [facility] Urine sediment renal epithel ial cell count by microscopy (number/high power field)Ordered By: Malachi Paredes on 04-05-2024 Epithelial cells.renal LM.HPF (Urine sed) [#/Area] 5 /[HPF] 0-5 [facility] Urine sediment yeast count b y microscopy (number/high powered field)Ordered By: Malachi Paredes on 04-05-2024 Yeast LM.HPF (Urine sed) [#/Area] 3 /[HPF] None Seen [facility] Urine specific gravity measu rementOrdered By: Malachi Paredes on 04-05-2024 Specific gravity (U) [Rel density] 1.015 1.002-1.030 [facility] Urine total bilirubin detect ion by test stripOrdered By: Malachi Paredes on 04-05-2024 Urine total bilirubin detection by test strip Negative Negative [facility] Urine urobilinogen measureme ntOrdered By: Malachi Paredes on 04-05-2024 Urobilinogen Ql (U) Normal mg/dl Normal [facility] Urobilinogen Ql (U)Ordered B y: Malachi Paredes on 04-05-2024 Urine urobilinogen measurement Normal mg/dl Normal [facility] Venous blood base excess vasquez surementOrdered By: Jordan Driscoll on 04-05-2024 Base excess Calc (BldV) [Moles/Vol] 0 mmol/L -1.0-3.5 [facility] Venous blood bicarbonate vasquez surementOrdered By: Jordan Driscoll on 04-05-2024 HCO3 (Bld) [Moles/Vol] 25 mmol/L 22- [facility] Venous blood bicarbonate measurement 25 mmol/L - [facility] Venous blood oxygen saturati on measurementOrdered By: Jordan Driscoll on 04-05-2024 Venous blood oxygen saturation measurement 99 % High 50-70 [facility] Venous blood pH measurementO rdered By: Jordan Driscoll on 04-05-2024 pH (BldV) 7.39 [pH] 7.32-7.42 [facility] Venous blood partial pressur e of carbon dioxide measurementOrdered By: Jordan Driscoll on 04-05-2024 CO2 (BldV) [Partial pressure] 41.2 mm[Hg] 41-51 [facility] Venous blood partial pressur e of oxygen measurementOrdered By: Jordan Driscoll on 04-05-2024 Oxygen (BldV) [Partial pressure] 138 mm[Hg] High 25-40 [facility] White blood cell countOrdere d By: Malachi Paredes on 04-05-2024 White blood cell count >100 SEEN /hpf 0-5 [facility] White blood cell count >100 SEEN /hpf 0-5 [facility] Yeast LM.HPF (Urine sed) [#/ Area]Ordered By: Malachi Paredes on 04-05-2024 Urine sediment yeast count by microscopy (number/high powered field) 3+ /hpf None Seen [facility] aPTT Coag (PPP) [Time]Ordere d By: Malachi Paredes on 04-05-2024 Activated partial thromboplastin time (aPTT) in platelet poor plasma by coagulation a 25.4 Seconds 24.1-36.2 [facility] pH (BldV)Ordered By: Jordan avelar on 04-05-2024 Venous blood pH measurement 7.39 7.32-7.42 [facility] pH (U)Ordered By: Malachi Paredes on 04-05-2024 Urine pH 6.0 5.0 - 8.0 [facility] Microorganism identified Cx Nom (Unsp spec)Ordered By: GERA Naik on 03-05-2024 Microbial respiratory culture Pseudomonas aeruginosa Abnormal [facility] 30-UM-Hzagkna DOrdered By: Andre Will on 01-27-2024 20-GX-Uaslgyg D 23.0 ng/mL [facility] Estimated glomerular filtrat ion rate (GFR) AmericanOrdered By: Tobi Zapata on 01-27-2024 Estimated glomerular filtration rate (GFR) 60 mL/min >60 [facility] HbA1c (Bld) [Mass fraction]O rdered By: Donna Will on 01-27-2024 Hemoglobin A1c percentage 9.2 % High 3.8-5.6 [facility] Hemoglobin A1c percentageOrd ered By: Donna Will on 01-27-2024 HbA1c (Bld) [Mass fraction] 9.2 % High 3.8-5.6 [facility] Serum or plasma thyroid stim ulating hormone (TSH) measurement (units/volume)Ordered By: Donna Will on 01-27-2024 TSH Qn 1.880 uIU/mL 0.358-3.740 [facility] TSH QnOrdered By: Donna Garcia hner on 01-27-2024 Serum or plasma thyroid stimulating hormone (TSH) measurement (units/volume) 1.880 uIU/mL 0.358-3.740 [facility] Absolute lymphocyte countOrd ered By: Tobi Zapata on 06-05-2023 Lymphocytes Auto (Unsp spec) [#/Vol] 1.84 10*3/uL 0.83-4.51 [facility] Activated partial thrombopla stin time (aPTT) in platelet poor plasma by coagulation aOrdered By: Tobi Zapata on 06-05-2023 aPTT Coag (PPP) [Time] 26.2 s 24.1-36.2 [facility] Automated lymphocyte count a s percentage of total leukocytesOrdered By: Tobi Zapata on 06-05-2023 Lymphocytes/100 WBC Auto (Unsp spec) 24.6 % 19-41 [facility] Basophil percentageOrdered B y: Tobi Benny on 06-05-2023 Basophil percentage 9.2 g/dL 13.0-16.5 [facility] Basophils (Bld) [#/Vol] 7.5 10*3/uL 4.4-11.0 [facility] Basophils (Bld) [#/Vol] 4.6 10*3/uL 2.0-7.7 [facility] Basophils/100 WBC (Bld) 61.9 % 47-70 [facility] Basophils/100 WBC (Bld) 10.2 % 0-10 [facility] Basophils/100 WBC (Bld) 2.0 % 0-5 [facility] Basophils/100 WBC (Bld) 0.4 % 0-1 [facility] Determination of erythrocyte mean corpuscular volume (MCV)Ordered By: Tobi Zapata on 06-05-2023 MCV (RBC) [Entitic vol] 95.9 fL 80-94 [facility] Erythrocyte distribution wid th ratioOrdered By: Tobi Zapata on 06-05-2023 Erythrocyte distribution width (RBC) [Ratio] 17.9 % 11.6-14.6 [facility] Erythrocyte distribution wid th standard deviationOrdered By: Tobi Zapata on 06-05-2023 Erythrocyte distribution width (RBC) [Entitic vol] 61.8 fL 35.1-43.9 [facility] Hematocrit Auto (Bld) [Volum e fraction]Ordered By: Tobi Zapata on 06-05-2023 Hematocrit (Bld) [Volume fraction] 30.5 % 40-54 [facility] Immature granulocytes/100 WB C Auto (Bld)Ordered By: Tobi Zapata on 06-05-2023 Immature granulocytes/100 WBC (Bld) 0.900 % 0.0-0.9 [facility] No Panel InformationOrdered By: Tobi Zapata on 06-05-2023 28.9 pg 27.0-32.0 [facility] 30.2 g/dL 32-36 [facility] 242 K/mm3 150-450 [facility] 11.1 fl 6.2-12.0 [facility] 0.4 % 0-5 [facility] 14.1 SECONDS 11.7-14.9 [facility] 1.1 [facility] RBC Auto (Bld) [#/Vol]Ordere d By: Tobi Zapata on 06-05-2023 RBC (Bld) [#/Vol] 3.18 10*6/uL 4.6-6.2 [facility] Absolute lymphocyte countOrd ered By: Tobi Zapata on 05-28-2023 Lymphocytes Auto (Unsp spec) [#/Vol] 1.41 10*3/uL 0.83-4.51 [facility] Automated lymphocyte count a s percentage of total leukocytesOrdered By: Tobi Zapata on 05-28-2023 Lymphocytes/100 WBC Auto (Unsp spec) 19.1 % 19-41 [facility] Basophil percentageOrdered B y: Tobi Zapata on 05-28-2023 Basophil percentage 8.5 g/dL 13.0-16.5 [facility] Basophil percentage 231 mg/dL 74-106 [facility] Basophil percentage 6.5 g/dL 6.4-8.2 [facility] Basophil percentage 0.50 mg/dL 0.20-1.00 [facility] Basophil percentage 141 mmol/L 136-145 [facility] Basophil percentage 4.6 mmol/L 3.5-5.1 [facility] Basophil percentage 107 mmol/L 98-107 [facility] Basophil percentage 201 U/L 87-241 [facility] Basophils (Bld) [#/Vol] 7.4 10*3/uL 4.4-11.0 [facility] Basophils (Bld) [#/Vol] 4.8 10*3/uL 2.0-7.7 [facility] Basophils/100 WBC (Bld) 65.0 % 47-70 [facility] Basophils/100 WBC (Bld) 10.2 % 0-10 [facility] Basophils/100 WBC (Bld) 3.8 % 0-5 [facility] Basophils/100 WBC (Bld) 0.5 % 0-1 [facility] Carcinoembryonic Ag [Mass/Vo l]Ordered By: Tobi Zapata on 05-28-2023 Serum or plasma carcinoembryonic antigen measurement (mass/volume) 3.4 ng/mL 0.0-4.7 [facility] Deamidated gliadin IgA antib lashon assayOrdered By: Tobi Zapata on 05-28-2023 Deamidated gliadin IgA antibody assay 3 units 0-19 [facility] Deamidated gliadin IgG antib lashon assayOrdered By: Tobi Zapata on 05-28-2023 Deamidated gliadin IgG antibody assay 2 units 0-19 [facility] Determination of erythrocyte mean corpuscular volume (MCV)Ordered By: Tobi Zapata on 05-28-2023 MCV (RBC) [Entitic vol] 95.3 fL 80-94 [facility] Endomysial IgA antibody assa yOrdered By: Tobi Zapata on 05-28-2023 Endomysial IgA antibody assay Negative Negative [facility] Erythrocyte distribution wid th ratioOrdered By: Tobi Zapata on 05-28-2023 Erythrocyte distribution width (RBC) [Ratio] 17.4 % 11.6-14.6 [facility] Erythrocyte distribution wid th standard deviationOrdered By: Tobi Zapata on 05-28-2023 Erythrocyte distribution width (RBC) [Entitic vol] 59.6 fL 35.1-43.9 [facility] Erythrocyte sedimentation ra teOrdered By: Tobi Zapata on 05-28-2023 ESR (Bld) [Velocity] 11 mm/h 0-20 [facility] HaptoglobinOrdered By: Stephen Zapata on 05-28-2023 Haptoglobin 150 mg/dL 34-355 [facility] Hematocrit Auto (Bld) [Volum e fraction]Ordered By: Tobi Zapata on 05-28-2023 Hematocrit (Bld) [Volume fraction] 28.5 % 40-54 [facility] Hemoglobin in reticulocytes (mass per reticulocyte)Ordered By: Tobi Zapata on 05-28-2023 Hemoglobin (Reticulocytes) [Entitic mass] 29.1 pg 30-35 [facility] Immature granulocytes/100 WB C Auto (Bld)Ordered By: Tobi Zapata on 05-28-2023 Immature granulocytes/100 WBC (Bld) 1.400 % 0.0-0.9 [facility] Iron measurement (mass/mass) Ordered By: Tobi Zapata on 05-28-2023 Iron (Unsp spec) [Mass/Mass] 43 ug/dL 65-175 [facility] No Panel InformationOrdered By: Tobi Zapata on 05-28-2023 28.4 pg 27.0-32.0 [facility] 29.8 g/dL 32-36 [facility] 210 K/mm3 150-450 [facility] 11.1 fl 6.2-12.0 [facility] 0 % 0-5 [facility] 31.50 % 3.00-15.90 [facility] 40 mL/min >60 [facility] 48 mL/min >60 [facility] 46.00 ml/min [facility] 18.5 RATIO 10-20 [facility] 3.2 g/dL 2.2-4.2 [facility] 1.0 RATIO 0.9-2.4 [facility] 71 U/L 45-117 [facility] 23 U/L 16-61 [facility] 29.0 mmol/L 21.0-32.0 [facility] 7.35 mg/L 0.0-3.0 [facility] 285 ug/dL 250-450 [facility] 28 ng/mL 26-388 [facility] RBC Auto (Bld) [#/Vol]Ordere d By: Tobi Zapata on 05-28-2023 RBC (Bld) [#/Vol] 2.99 10*6/uL 4.6-6.2 [facility] Reticulocytes Auto (Bld) [#/ Vol]Ordered By: Tobi Zapata on 05-28-2023 Reticulocytes/100 RBC (Bld) 3.18 % 0.5-1.5 [facility] Serum immunoglobulin A measu rementOrdered By: Tobi Zapata on 05-28-2023 Serum immunoglobulin A measurement 12 mg/dL Low 61-437 [facility] Serum or plasma calcium yocasta urement (mass/volume)Ordered By: Tobi Zapata on 05-28-2023 Calcium [Mass/Vol] 8.5 mg/dL 8.5-10.1 [facility] Serum or plasma carcinoembry onic antigen measurement (mass/volume)Ordered By: Tobi Zapata on 05-28-2023 Carcinoembryonic Ag [Mass/Vol] 3.4 ng/mL 0.0-4.7 [facility] Serum or plasma creatinine m easurement (mass/volume)Ordered By: Tobi Zapata on 05-28-2023 Creatinine [Mass/Vol] 1.78 mg/dL 0.70-1.30 [facility] Serum or plasma iron saturat ion measurement (mass fraction)Ordered By: Tobi Zapata on 05-28-2023 Iron saturation [Mass fraction] 15.1 % 15.0-55.0 [facility] Serum or plasma urea nitroge n measurement (mass/volume)Ordered By: Tobi Zapata on 05-28-2023 Urea nitrogen [Mass/Vol] 33 mg/dL 7-18 [facility] Serum tissue transglutaminas e (tTG) IgA antibody assay (units/volume)Ordered By: Tobi Zapata on 05-28-2023 Serum tissue transglutaminase (tTG) IgA antibody assay (units/volume) <2 U/mL 0-5 [facility] Serum tissue transglutaminas e IgA antibody assay (units/volume)Ordered By: Tobi Zapata on 05-28-2023 tTG IgA Qn (S) <2 U/mL 0-3 [facility] Thin prep Papanicolaou smear with manual screeningOrdered By: Tobi Zapata on 05-28-2023 Thin prep Papanicolaou smear with manual screening 3.3 g/dL 3.2-5.0 [facility] Thin prep Papanicolaou smear with manual screening 13 U/L 15-37 [facility] Thin prep Papanicolaou smear with manual screening 5 5-15 [facility] No Panel InformationOrdered By: Jennifer Galdamez on 05-12-2023 523.9 pg/mL 0-100 [facility] Absolute lymphocyte countOrd ered By: Donna Will on 05-07-2023 Lymphocytes Auto (Unsp spec) [#/Vol] 0.96 10*3/uL 0.83-4.51 [facility] Automated lymphocyte count a s percentage of total leukocytesOrdered By: Donna Will on 05-07-2023 Lymphocytes/100 WBC Auto (Unsp spec) 10.6 % 19-41 [facility] Basophil percentageOrdered B y: Donna Will on 05-07-2023 Basophil percentage 7.4 g/dL 13.0-16.5 [facility] Basophil percentage 198 mg/dL 74-106 [facility] Basophil percentage 142 mmol/L 136-145 [facility] Basophil percentage 4.3 mmol/L 3.5-5.1 [facility] Basophil percentage 107 mmol/L 98-107 [facility] Basophils (Bld) [#/Vol] 9.1 10*3/uL 4.4-11.0 [facility] Basophils (Bld) [#/Vol] 7.0 10*3/uL 2.0-7.7 [facility] Basophils/100 WBC (Bld) 76.9 % 47-70 [facility] Basophils/100 WBC (Bld) 8.5 % 0-10 [facility] Basophils/100 WBC (Bld) 2.3 % 0-5 [facility] Basophils/100 WBC (Bld) 0.3 % 0-1 [facility] Determination of erythrocyte mean corpuscular volume (MCV)Ordered By: Donna Will on 05-07-2023 MCV (RBC) [Entitic vol] 96.6 fL 80-94 [facility] Erythrocyte distribution wid th ratioOrdered By: Donna Will on 05-07-2023 Erythrocyte distribution width (RBC) [Ratio] 17.1 % 11.6-14.6 [facility] Erythrocyte distribution wid th standard deviationOrdered By: Donna Will on 05-07-2023 Erythrocyte distribution width (RBC) [Entitic vol] 60.3 fL 35.1-43.9 [facility] Hematocrit Auto (Bld) [Volum e fraction]Ordered By: Donna Will on 05-07-2023 Hematocrit (Bld) [Volume fraction] 25.2 % 40-54 [facility] Immature granulocytes/100 WB C Auto (Bld)Ordered By: Donna Will on 05-07-2023 Immature granulocytes/100 WBC (Bld) 1.400 % 0.0-0.9 [facility] No Panel InformationOrdered By: Donna Will on 05-07-2023 28.4 pg 27.0-32.0 [facility] 29.4 g/dL 32-36 [facility] 301 K/mm3 150-450 [facility] 10.9 fl 6.2-12.0 [facility] 0 % 0-5 [facility] 41 mL/min >60 [facility] 50 mL/min >60 [facility] 23.6 RATIO 10-20 [facility] 29.0 mmol/L 21.0-32.0 [facility] RBC Auto (Bld) [#/Vol]Ordere d By: Donna Will on 05-07-2023 RBC (Bld) [#/Vol] 2.61 10*6/uL 4.6-6.2 [facility] Serum or plasma calcium yocasta urement (mass/volume)Ordered By: Donna Will on 05-07-2023 Calcium [Mass/Vol] 8.9 mg/dL 8.5-10.1 [facility] Serum or plasma creatinine m easurement (mass/volume)Ordered By: Donna Will on 05-07-2023 Creatinine [Mass/Vol] 1.74 mg/dL 0.70-1.30 [facility] Serum or plasma urea nitroge n measurement (mass/volume)Ordered By: Donna Will on 05-07-2023 Urea nitrogen [Mass/Vol] 41 mg/dL 7-18 [facility] Thin prep Papanicolaou smear with manual screeningOrdered By: Donna Will on 05-07-2023 Thin prep Papanicolaou smear with manual screening 6 5-15 [facility] Absolute lymphocyte countOrd ered By: Tobi Zapata on 04-25-2023 Lymphocytes Auto (Unsp spec) [#/Vol] 1.48 10*3/uL 0.83-4.51 [facility] Automated lymphocyte count a s percentage of total leukocytesOrdered By: Tobi Zapata on 04-25-2023 Lymphocytes/100 WBC Auto (Unsp spec) 21.7 % 19-41 [facility] Basophil percentageOrdered B y: Tobi Zapata on 04-25-2023 Basophil percentage 7.6 g/dL 13.0-16.5 [facility] Basophil percentage 192 mg/dL 74-106 [facility] Basophil percentage 6.0 g/dL 6.4-8.2 [facility] Basophil percentage 0.30 mg/dL 0.20-1.00 [facility] Basophil percentage 143 mmol/L 136-145 [facility] Basophil percentage 4.1 mmol/L 3.5-5.1 [facility] Basophil percentage 111 mmol/L 98-107 [facility] Basophil percentage 163 U/L 87-241 [facility] Basophils (Bld) [#/Vol] 6.8 10*3/uL 4.4-11.0 [facility] Basophils (Bld) [#/Vol] 4.0 10*3/uL 2.0-7.7 [facility] Basophils/100 WBC (Bld) 59.2 % 47-70 [facility] Basophils/100 WBC (Bld) 11.0 % 0-10 [facility] Basophils/100 WBC (Bld) 6.4 % 0-5 [facility] Basophils/100 WBC (Bld) 0.7 % 0-1 [facility] Determination of erythrocyte mean corpuscular volume (MCV)Ordered By: Tobi Zapata on 04-25-2023 MCV (RBC) [Entitic vol] 94.8 fL 80-94 [facility] Erythrocyte distribution wid th ratioOrdered By: Tobi Zapata on 04-25-2023 Erythrocyte distribution width (RBC) [Ratio] 17.4 % 11.6-14.6 [facility] Erythrocyte distribution wid th standard deviationOrdered By: Tobi Zapata on 04-25-2023 Erythrocyte distribution width (RBC) [Entitic vol] 60.3 fL 35.1-43.9 [facility] Hematocrit Auto (Bld) [Volum e fraction]Ordered By: Tobi Zapata on 04-25-2023 Hematocrit (Bld) [Volume fraction] 25.5 % 40-54 [facility] Immature granulocytes/100 WB C Auto (Bld)Ordered By: Tobi Zapata on 04-25-2023 Immature granulocytes/100 WBC (Bld) 1.000 % 0.0-0.9 [facility] Iron measurement (mass/mass) Ordered By: Tobi Zapata on 04-25-2023 Iron (Unsp spec) [Mass/Mass] 28 ug/dL 65-175 [facility] No Panel InformationOrdered By: Tobi Zapata on 04-25-2023 28.3 pg 27.0-32.0 [facility] 29.8 g/dL 32-36 [facility] 269 K/mm3 150-450 [facility] 11.1 fl 6.2-12.0 [facility] 0 % 0-5 [facility] 53 mL/min >60 [facility] 64 mL/min >60 [facility] 19.3 RATIO 10-20 [facility] 3.3 g/dL 2.2-4.2 [facility] 0.8 RATIO 0.9-2.4 [facility] 96 U/L 45-117 [facility] 13 U/L 16-61 [facility] 31.0 mmol/L 21.0-32.0 [facility] 212 ug/dL 250-450 [facility] 57 ng/mL 26-388 [facility] RBC Auto (Bld) [#/Vol]Ordere d By: Tobi Zapata on 04-25-2023 RBC (Bld) [#/Vol] 2.69 10*6/uL 4.6-6.2 [facility] Serum or plasma calcium yocasta urement (mass/volume)Ordered By: Tobi Zapata on 04-25-2023 Calcium [Mass/Vol] 8.6 mg/dL 8.5-10.1 [facility] Serum or plasma creatinine m easurement (mass/volume)Ordered By: Tobi Zapata on 04-25-2023 Creatinine [Mass/Vol] 1.40 mg/dL 0.70-1.30 [facility] Serum or plasma iron saturat ion measurement (mass fraction)Ordered By: Tobi Zapata on 04-25-2023 Iron saturation [Mass fraction] 13.2 % 15.0-55.0 [facility] Serum or plasma urea nitroge n measurement (mass/volume)Ordered By: Tobi Zapata on 04-25-2023 Urea nitrogen [Mass/Vol] 27 mg/dL 7-18 [facility] Thin prep Papanicolaou smear with manual screeningOrdered By: Tobi Zapata on 04-25-2023 Thin prep Papanicolaou smear with manual screening 2.7 g/dL 3.2-5.0 [facility] Thin prep Papanicolaou smear with manual screening 6 U/L 15-37 [facility] Thin prep Papanicolaou smear with manual screening 1 5-15 [facility] Absolute lymphocyte countOrd ered By: Donna Will on 04-17-2023 Lymphocytes Auto (Unsp spec) [#/Vol] 2.00 10*3/uL 0.83-4.51 [facility] Automated lymphocyte count a s percentage of total leukocytesOrdered By: Donna Will on 04-17-2023 Lymphocytes/100 WBC Auto (Unsp spec) 25.3 % 19-41 [facility] Basophil percentageOrdered B y: Donna Will on 04-17-2023 Basophil percentage 7.9 g/dL 13.0-16.5 [facility] Basophils (Bld) [#/Vol] 7.9 10*3/uL 4.4-11.0 [facility] Basophils (Bld) [#/Vol] 4.6 10*3/uL 2.0-7.7 [facility] Basophils/100 WBC (Bld) 58.4 % 47-70 [facility] Basophils/100 WBC (Bld) 9.4 % 0-10 [facility] Basophils/100 WBC (Bld) 4.6 % 0-5 [facility] Basophils/100 WBC (Bld) 0.8 % 0-1 [facility] Determination of erythrocyte mean corpuscular volume (MCV)Ordered By: Donna Will on 04-17-2023 MCV (RBC) [Entitic vol] 96.8 fL 80-94 [facility] Erythrocyte distribution wid th ratioOrdered By: Donna Will on 04-17-2023 Erythrocyte distribution width (RBC) [Ratio] 17.4 % 11.6-14.6 [facility] Erythrocyte distribution wid th standard deviationOrdered By: Donna Will on 04-17-2023 Erythrocyte distribution width (RBC) [Entitic vol] 61.5 fL 35.1-43.9 [facility] Hematocrit Auto (Bld) [Volum e fraction]Ordered By: Donna Will on 04-17-2023 Hematocrit (Bld) [Volume fraction] 26.9 % 40-54 [facility] Immature granulocytes/100 WB C Auto (Bld)Ordered By: Donna Will on 04-17-2023 Immature granulocytes/100 WBC (Bld) 1.500 % 0.0-0.9 [facility] Iron measurement (mass/mass) Ordered By: Donna Will on 04-17-2023 Iron (Unsp spec) [Mass/Mass] 49 ug/dL 65-175 [facility] No Panel InformationOrdered By: Donna Will on 04-17-2023 28.4 pg 27.0-32.0 [facility] 29.4 g/dL 32-36 [facility] 338 K/mm3 150-450 [facility] 10.9 fl 6.2-12.0 [facility] 0 % 0-5 [facility] 238 ug/dL 250-450 [facility] RBC Auto (Bld) [#/Vol]Ordere d By: Donna Will on 04-17-2023 RBC (Bld) [#/Vol] 2.78 10*6/uL 4.6-6.2 [facility] Serum or plasma iron saturat ion measurement (mass fraction)Ordered By: Donna Will on 04-17-2023 Iron saturation [Mass fraction] 20.6 % 15.0-55.0 [facility] Basophil percentageOrdered B y: Donna Will on 04-03-2023 Basophil percentage 146 mg/dL 74-106 [facility] Basophil percentage 141 mmol/L 136-145 [facility] Basophil percentage 4.2 mmol/L 3.5-5.1 [facility] Basophil percentage 108 mmol/L 98-107 [facility] No Panel InformationOrdered By: Donna Will on 04-03-2023 43 mL/min >60 [facility] 52 mL/min >60 [facility] 12.7 RATIO 10-20 [facility] 1.6 mg/dL 1.6-2.6 [facility] 30.0 mmol/L 21.0-32.0 [facility] Serum or plasma calcium yocasta urement (mass/volume)Ordered By: Donna Will on 04-03-2023 Calcium [Mass/Vol] 8.0 mg/dL 8.5-10.1 [facility] Serum or plasma creatinine m easurement (mass/volume)Ordered By: Donna Will on 04-03-2023 Creatinine [Mass/Vol] 1.66 mg/dL 0.70-1.30 [facility] Serum or plasma urea nitroge n measurement (mass/volume)Ordered By: Donna Will on 04-03-2023 Urea nitrogen [Mass/Vol] 21 mg/dL 7-18 [facility] Thin prep Papanicolaou smear with manual screeningOrdered By: Donna Will on 04-03-2023 Thin prep Papanicolaou smear with manual screening 3 5-15 [facility] 36on 03-21-2023 36 S: Pt's calling [facility] Nurse Advice Line regarding prescription problem. B: Pt was discharged today from [facility]. A: states [facility] insurance will not cover pt's insulin that was prescribed at discharge. wants to know why, and also what he can take instead. R: Advised that she has reached the [facility] Nurse Advice Line, and to please call the other number on her card regarding prescriptions. Caller ended call. Reason for Disposition [1] Follow-up call to recent contact AND [2] information only call, no triage required Protocols used: Information Only Call - [id number] Thin prep Papanicolaou smear with manual screeningOrdered By: Clive Sharp on 03-21-2023 Thin prep Papanicolaou smear with manual screening 171 mg/dL 74-106 [facility] Absolute lymphocyte countOrd ered By: Anthony Singleton on 03-19-2023 Lymphocytes Auto (Unsp spec) [#/Vol] 1.19 10*3/uL 0.83-4.51 [facility] Automated lymphocyte count a s percentage of total leukocytesOrdered By: Anthony Singleton on 03-19-2023 Lymphocytes/100 WBC Auto (Unsp spec) 11.9 % 19-41 [facility] Basophil percentageOrdered B y: Anthony Singleton on 03-19-2023 Basophil percentage 8.6 g/dL 13.0-16.5 [facility] Basophil percentage 120 mg/dL 74-106 [facility] Basophil percentage 142 mmol/L 136-145 [facility] Basophil percentage 4.1 mmol/L 3.5-5.1 [facility] Basophil percentage 107 mmol/L 98-107 [facility] Basophils (Bld) [#/Vol] 10.0 10*3/uL 4.4-11.0 [facility] Basophils (Bld) [#/Vol] 7.6 10*3/uL 2.0-7.7 [facility] Basophils/100 WBC (Bld) 76.0 % 47-70 [facility] Basophils/100 WBC (Bld) 7.1 % 0-10 [facility] Basophils/100 WBC (Bld) 2.8 % 0-5 [facility] Basophils/100 WBC (Bld) 0.3 % 0-1 [facility] Determination of erythrocyte mean corpuscular volume (MCV)Ordered By: Anthony Singleton on 03-19-2023 MCV (RBC) [Entitic vol] 99.0 fL 80-94 [facility] Erythrocyte distribution wid th ratioOrdered By: Anthony Singleton on 03-19-2023 Erythrocyte distribution width (RBC) [Ratio] 19.3 % 11.6-14.6 [facility] Erythrocyte distribution wid th standard deviationOrdered By: Anthony Singleton on 03-19-2023 Erythrocyte distribution width (RBC) [Entitic vol] 62.5 fL 35.1-43.9 [facility] Hematocrit Auto (Bld) [Volum e fraction]Ordered By: Anthony Singleton on 03-19-2023 Hematocrit (Bld) [Volume fraction] 29.0 % 40-54 [facility] Immature granulocytes/100 WB C Auto (Bld)Ordered By: Anthony Singleton on 03-19-2023 Immature granulocytes/100 WBC (Bld) 1.900 % 0.0-0.9 [facility] No Panel InformationOrdered By: Anthony Singleton on 03-19-2023 29.4 pg 27.0-32.0 [facility] 29.7 g/dL 32-36 [facility] 166 K/mm3 150-450 [facility] 0.6 % 0-5 [facility] 28 mL/min >60 [facility] 34 mL/min >60 [facility] 32.04 ml/min [facility] 30.5 RATIO 10-20 [facility] 32.0 mmol/L 21.0-32.0 [facility] Platelet mean volume Edmundo-Ec ker (Bld) [Entitic vol]Ordered By: Anthony Singleton on 03-19-2023 Platelet mean volume (Bld) [Entitic vol] 11.4 fL 6.2-12.0 [facility] RBC Auto (Bld) [#/Vol]Ordere d By: Anthony Singleton on 03-19-2023 RBC (Bld) [#/Vol] 2.93 10*6/uL 4.6-6.2 [facility] Serum or plasma calcium yocasta urement (mass/volume)Ordered By: Anthony Singleton on 03-19-2023 Calcium [Mass/Vol] 7.7 mg/dL 8.5-10.1 [facility] Serum or plasma creatinine m easurement (mass/volume)Ordered By: Anthony Singleton on 03-19-2023 Creatinine [Mass/Vol] 2.43 mg/dL 0.70-1.30 [facility] Serum or plasma urea nitroge n measurement (mass/volume)Ordered By: Anthony Singleton on 03-19-2023 Urea nitrogen [Mass/Vol] 74 mg/dL 7-18 [facility] Thin prep Papanicolaou smear with manual screeningOrdered By: Anthony Singleton on 03-19-2023 Thin prep Papanicolaou smear with manual screening 3 5-15 [facility] Anaerobic cultureOrdered By: Nadira Ricks on 03-18-2023 Bacteria identified Anaer cx Nom (Unsp spec) No growth in 5 days. [facility] Bacteria identified Anaer cx Nom (Unsp spec) No growth in 5 days. [facility] Body fluid appearanceOrdered By: Nadira Ricks on 03-18-2023 Appearance (Body fld) CLEAR [facility] Body fluid color determinati onOrdered By: Nadira Ricks on 03-18-2023 Color (Body fld) YELLOW [facility] Body fluid lactate dehydroge nase measurement (enzymatic activity/volume) by pyruvateOrdered By: Nadira Ricks on 03-18-2023 LDH Pyruvate to lactate reaction (Body fld) [Catalytic activity/Vol] 61 Units/L Not Establ. [facility] Body fluid leukocytes count (number/volume)Ordered By: Nadira Ricks on 03-18-2023 WBC (Body fld) [#/Vol] 0.218 10*3/uL [facility] Body fluid lymphocytes/100 l eukocytesOrdered By: Nadira Ricks on 03-18-2023 Lymphocytes/100 WBC (Body fld) 19 % [facility] Body fluid mesothelial cell percentageOrdered By: Nadira Ricks on 03-18-2023 Mesothelial cells/100 WBC (Body fld) 0 % [facility] Body fluid mononuclear cell percentageOrdered By: Nadira Ricks on 03-18-2023 Mononuclear cells/100 WBC (Body fld) 65.6 % [facility] Body fluid other cell count as percentage of leukocytesOrdered By: Nadira Ricks on 03-18-2023 Other cells/100 WBC (Body fld) 1 % [facility] Body fluid polymorphonuclear leukocyte countOrdered By: Nadira Ricks on 03-18-2023 Polymorphonuclear cells (Body fld) [#/Vol] 0.075 10^3/uL [facility] Body fluid protein measureme nt (mass/volume)Ordered By: Nadira Ricks on 03-18-2023 Protein (Body fld) [Mass/Vol] 1.1 g/dL Not Establ. [facility] Body fluid segmented neutrop hils count (number/volume)Ordered By: Nadira Ricks on 03-18-2023 Segmented neutrophils (Body fld) [#/Vol] 60 % [facility] Body fluid total cell countO rdered By: Nadira Ricks on 03-18-2023 Cells Counted Total (Body fld) [#] 0.257 10^3/ul [facility] Cytology report of Body flui d Cyto stainOrdered By: Nadira Ricks on 03-18-2023 Cytology report Cyto stain Doc (Body fld) SEE PATHOLOGY REPORT [facility] Gram stain for investigation of transfusion reactionOrdered By: Nadira Ricks on 03-18-2023 Microscopic observation Gram stain Nom (Unsp spec) [facility] Microscopic observation Gram stain Nom (Unsp spec) [facility] No Panel InformationOrdered By: Nadira Ricks on 03-18-2023 35 /mm3 [facility] 34.4 % [facility] 0.143 10^3/uL [facility] SEE COMMENT [facility] 196 mg/dL 40-70 [facility] Culture exhibits no growth. [facility] Culture exhibits no growth. [facility] Pathologist interpretation o f Body fluid testsOrdered By: Nadira Ricks on 03-18-2023 Pathologist interpretation (Body fld) [Interp] Reviewed [facility] Specimen source identificati on of body fluidOrdered By: Nadira Ricks on 03-18-2023 Specimen source Nom (Body fld) THORACENTESIS [facility] Thin prep Papanicolaou smear with manual screeningOrdered By: Nadira Ricks on 03-18-2023 Thin prep Papanicolaou smear with manual screening 20 % [facility] Basophil percentageOrdered B y: Nadira Ricks on 03-17-2023 Basophil percentage 5.3 g/dL 6.4-8.2 [facility] Basophil percentage 4.1 mg/dL 2.5-4.9 [facility] Basophil percentage 0.60 mg/dL 0.20-1.00 [facility] Basophil percentage 232 U/L 87-241 [facility] No Panel InformationOrdered By: Anthony Singleton on 03-17-2023 Negative Negative [facility] 650.8 pg/mL 0-100 [facility] No Panel InformationOrdered By: Nadira Ricks on 03-17-2023 2.4 g/dL 2.2-4.2 [facility] 1.2 RATIO 0.9-2.4 [facility] 61 U/L 45-117 [facility] 18 U/L 16-61 [facility] 2.1 mg/dL 1.6-2.6 [facility] 984 pg/mL 3.0-78.0 [facility] Serum procalcitonin measurem entOrdered By: Anthony Singleton on 03-17-2023 Procalcitonin [Mass/Vol] 0.28 ng/mL 0.00-0.09 [facility] Thin prep Papanicolaou smear with manual screeningOrdered By: Nadira Ricks on 03-17-2023 Thin prep Papanicolaou smear with manual screening 2.9 g/dL 3.2-5.0 [facility] Thin prep Papanicolaou smear with manual screening 11 U/L 15-37 [facility] Absolute lymphocyte countOrd ered By: Eva Marie on 03-16-2023 Lymphocytes Auto (Unsp spec) [#/Vol] 1.54 10*3/uL 0.83-4.51 [facility] Activated partial thrombopla stin time (aPTT) in platelet poor plasma by coagulation aOrdered By: Eva Marie on 03-16-2023 aPTT Coag (PPP) [Time] 24.5 s 24.1-36.2 [facility] Assessment of wrist artery p atency prior to arterial punctureOrdered By: Nadira Ricks on 03-16-2023 Arterial patency Wrist artery --pre arterial puncture Positive [facility] Automated lymphocyte count a s percentage of total leukocytesOrdered By: Eva Marie on 03-16-2023 Lymphocytes/100 WBC Auto (Unsp spec) 7.3 % 19-41 [facility] Base excessOrdered By: Isak Ricks on 03-16-2023 Base excess Calc (BldV) [Moles/Vol] 5 mmol/L -2-2 [facility] Base excessOrdered By: Rigo Marie on 03-16-2023 Base excess Calc (BldV) [Moles/Vol] 5 mmol/L -1.0-3.5 [facility] Basophil percentageOrdered B y: Nadira Ricks on 03-16-2023 Basophil percentage 32 mmol/L [facility] Basophils/100 WBC (Bld) 97 % 95-99 [facility] Basophil percentageOrdered B y: Eva Marie on 03-16-2023 Basophil percentage 1.8 mmol/L 0.4-2.0 [facility] Basophil percentage 50-100 SEEN /hpf 0-5 [facility] Basophil percentage 5.0 g/dL 13.0-16.5 [facility] Basophil percentage 817 mg/dL 74-106 [facility] Basophil percentage 5.2 g/dL 6.4-8.2 [facility] Basophil percentage 0.60 mg/dL 0.20-1.00 [facility] Basophil percentage 134 mmol/L 136-145 [facility] Basophil percentage 4.7 mmol/L 3.5-5.1 [facility] Basophil percentage 94 mmol/L 98-107 [facility] Basophil percentage 4.5 mmol/L 0.4-2.0 [facility] Basophils (Bld) [#/Vol] 21.0 10*3/uL 4.4-11.0 [facility] Basophils (Bld) [#/Vol] 17.3 10*3/uL 2.0-7.7 [facility] Basophils/100 WBC (Bld) 82.4 % 47-70 [facility] Basophils/100 WBC (Bld) 5.5 % 0-10 [facility] Basophils/100 WBC (Bld) 0.5 % 0-5 [facility] Basophils/100 WBC (Bld) 0.2 % 0-1 [facility] Bilirubin Test strip Ql (U)O rdered By: Eva Marie on 03-16-2023 Bilirubin Ql (U) Negative Negative [facility] Blood manual differential co mment interpretation (narrative result)Ordered By: Eva Marie on 03-16-2023 Manual differential comment Sohan (Bld) [Interp] SCANNED [facility] CO2 (BldV) [Moles/Vol]Ordere d By: Eva Marie on 03-16-2023 CO2 [Moles/Vol] 31 mmol/L 23-33 [facility] Culture, urineOrdered By: Henrique Marie on 03-16-2023 Culture, urine Positive [facility] Determination of erythrocyte mean corpuscular volume (MCV)Ordered By: Eva Marie on 03-16-2023 MCV (RBC) [Entitic vol] 100.0 fL 80-94 [facility] Erythrocyte distribution wid th ratioOrdered By: Eva Marie on 03-16-2023 Erythrocyte distribution width (RBC) [Ratio] 20.1 % 11.6-14.6 [facility] Erythrocyte distribution wid th standard deviationOrdered By: Eva Marie on 03-16-2023 Erythrocyte distribution width (RBC) [Entitic vol] 63.7 fL 35.1-43.9 [facility] Hematocrit Auto (Bld) [Volum e fraction]Ordered By: Eva Marie on 03-16-2023 Hematocrit (Bld) [Volume fraction] 16.6 % 40-54 [facility] Hypochromatic red blood cell detectionOrdered By: Eva Marie on 03-16-2023 Hypochromia Ql (Bld) 1+ [facility] Immature granulocytes/100 WB C Auto (Bld)Ordered By: Eva Marie on 03-16-2023 Immature granulocytes/100 WBC (Bld) 4.100 % 0.0-0.9 [facility] International normalized rat io (INR) calculationOrdered By: Eva Marie on 03-16-2023 INR Coag (PPP) [Relative time] 1.5 {INR} [facility] Ketones Test strip Ql (U)Ord ered By: Eva Marie on 03-16-2023 Ketones Ql (U) Negative Negative [facility] Laboratory - Chemistry and C hemistry - challengeOrdered By: Nadira Ricks on 03-16-2023 CO2 (Dial fld) [Partial pressure] 48.9 mmHg 35-45 [facility] Macrocytes detectionOrdered By: Eva Marie on 03-16-2023 Macrocytes Ql (Bld) 1+ [facility] Measurement, pHOrdered By: Angela Ricks on 03-16-2023 pH (Unsp spec) 7.40 [pH] 7.35-7.45 [facility] Mucus LM Ql (Urine sed)Order ed By: Eva Marie on 03-16-2023 Mucus Ql (Urine sed) 0 SEEN /hpf [facility] Nitrite Test strip Ql (U)Ord ered By: Eva Marie on 03-16-2023 Nitrite Ql (U) Negative Negative [facility] No Panel InformationOrdered By: Nadira Ricks on 03-16-2023 ART [facility] R Radial [facility] Not entered [facility] Cannula [facility] 4.0 [facility] 30.2 mmol/L 22- [facility] No Panel InformationOrdered By: Eva Marie on 03-16-2023 No growth in 5 days. [facility] 0 SEEN /hpf 0-5 [facility] LEONEL [facility] Not entered [facility] Cannula [facility] 4.0 [facility] 30.1 pg 27.0-32.0 [facility] 30.1 g/dL 32-36 [facility] 256 K/mm3 150-450 [facility] 2.1 % 0-5 [facility] 2+ [facility] 18.0 SECONDS 11.7-14.9 [facility] 25 mL/min >60 [facility] 31 mL/min >60 [facility] 29.26 ml/min [facility] 39.8 RATIO 10-20 [facility] 2.4 g/dL 2.2-4.2 [facility] 1.2 RATIO 0.9-2.4 [facility] 37 U/L 39-308 [facility] 435 pg/mL 3.0-78.0 [facility] 61 U/L 45-117 [facility] 19 U/L 16-61 [facility] 30.0 mmol/L 21.0-32.0 [facility] PCO2 venousOrdered By: Rigo Marie on 03-16-2023 CO2 (BldV) [Partial pressure] 49.5 mm[Hg] 41-51 [facility] PO2 venousOrdered By: Eva Marie on 03-16-2023 Oxygen (BldV) [Partial pressure] 35 mm[Hg] 25-40 [facility] Platelet mean volume Edmundo-Ec ker (Bld) [Entitic vol]Ordered By: Eva Marie on 03-16-2023 Platelet mean volume (Bld) [Entitic vol] 12.3 fL 6.2-12.0 [facility] Protein Test strip Ql (U)Ord ered By: Eva Marie on 03-16-2023 Protein Ql (U) 30 mg/dl Negative [facility] RBC Auto (Bld) [#/Vol]Ordere d By: Eva Marie on 03-16-2023 RBC (Bld) [#/Vol] 1.66 10*6/uL 4.6-6.2 [facility] Respiratory measures and Leonel tilator managementOrdered By: Nadira Ricks on 03-16-2023 Oxygen [Partial pressure] in Capillary blood by Transcutaneous O2 monitor 97 mmHG 75-100 [facility] Review by pathologistOrdered By: Eva Marie on 03-16-2023 Pathologist review Sohan (Unsp spec) [Interp] May foll [facility] Pathologist review Sohan (Unsp spec) [Interp] Reviewed [facility] Serum or plasma acetone yocasta urement (mass/volume)Ordered By: Jordan Driscoll on 03-16-2023 Acetone [Mass/Vol] SMALL NEG [facility] Serum or plasma acetone yocasta urement (mass/volume)Ordered By: Eva Marie on 03-16-2023 Acetone [Mass/Vol] Negative NEG [facility] Serum or plasma calcium yocasta urement (mass/volume)Ordered By: Eva Marie on 03-16-2023 Calcium [Mass/Vol] 8.7 mg/dL 8.5-10.1 [facility] Serum or plasma creatinine m easurement (mass/volume)Ordered By: Eva Marie on 03-16-2023 Creatinine [Mass/Vol] 2.64 mg/dL 0.70-1.30 [facility] Serum or plasma urea nitroge n measurement (mass/volume)Ordered By: Eva Marie on 03-16-2023 Urea nitrogen [Mass/Vol] 105 mg/dL 7-18 [facility] Squamous epithelial cells de tection in urine sediment by light microscopyOrdered By: Eva Marie on 03-16-2023 Epithelial cells.squamous LM Ql (Urine sed) 0-5 SEEN /hpf 0-5 [facility] Stool gastrointestinal hemog lobin detection by immunologic methodOrdered By: Eva Marie on 03-16-2023 Stool gastrointestinal hemoglobin detection by immunologic method Positive [facility] Thin prep Papanicolaou smear with manual screeningOrdered By: Eva Marie on 03-16-2023 Thin prep Papanicolaou smear with manual screening 1+ [facility] Thin prep Papanicolaou smear with manual screening 2.8 g/dL 3.2-5.0 [facility] Thin prep Papanicolaou smear with manual screening 7 U/L 15-37 [facility] Thin prep Papanicolaou smear with manual screening 10 5-15 [facility] Thin prep Papanicolaou smear with manual screening > 500 mg/dL 74-106 [facility] Urine blood detectionOrdered By: Eva Marie on 03-16-2023 RBC Ql (U) 25 /ul Negative [facility] Urine clarityOrdered By: Jailene Marie on 03-16-2023 Clarity (U) Clear Clear [facility] Urine color determinationOrd ered By: Eva Marie on 03-16-2023 Color (U) Yellow Yellow [facility] Urine glucose detectionOrder ed By: Eva Marie on 03-16-2023 Glucose Ql (U) 1000 mg/dl Normal [facility] Urine leukocyte esterase det ection by dipstickOrdered By: Eva Marie on 03-16-2023 Leukocyte esterase Test strip Ql (U) 500 /ul Negative [facility] Urine pHOrdered By: Eva gordon on 03-16-2023 pH (U) 6.5 [pH] 5.0 - 8.0 [facility] Urine sediment bacteria coun t by microscopy (number/high power field)Ordered By: Eva Marie on 03-16-2023 Bacteria LM.HPF (Urine sed) [#/Area] 0 /[HPF] None Seen [facility] Urine specific gravity measu rementOrdered By: Eva Marie on 03-16-2023 Specific gravity (U) [Rel density] 1.010 1.002-1.030 [facility] Urine urobilinogen measureme ntOrdered By: Eva Marie on 03-16-2023 Urobilinogen Ql (U) Normal mg/dl Normal [facility] Venous blood bicarbonate vasquez surementOrdered By: Eva Marie on 03-16-2023 HCO3 (BldCoV) [Moles/Vol] 30 mmol/L 22-26 [facility] Venous blood oxygen saturati on (pure mass fraction)Ordered By: Eva Marie on 03-16-2023 SaO2% (BldV) [Pure mass fraction] 65 % 50-70 [facility] Venous blood pH measurementO rdered By: Eva Marie on 03-16-2023 pH (BldV) 7.39 [pH] 7.32-7.42 [facility] Absolute lymphocyte countOrd ered By: Jordan Ortiz on 03-06-2023 Lymphocytes Auto (Unsp spec) [#/Vol] 0.90 10*3/uL 0.83-4.51 [facility] Basophil percentageOrdered B y: Jordan Ortiz on 03-06-2023 Basophil percentage 199 mg/dL 74-106 [facility] Basophil percentage 2.6 mg/dL 2.5-4.9 [facility] Basophil percentage 142 mmol/L 136-145 [facility] Basophil percentage 4.1 mmol/L 3.5-5.1 [facility] Basophil percentage 103 mmol/L 98-107 [facility] Basophils (Bld) [#/Vol] 10.9 10*3/uL 4.4-11.0 [facility] Basophils (Bld) [#/Vol] 8.7 10*3/uL 2.0-7.7 [facility] Basophils/100 WBC (Bld) 79.8 % 47-70 [facility] Basophils/100 WBC (Bld) 0.3 % 0-5 [facility] Basophils/100 WBC (Bld) 0.1 % 0-1 [facility] Blood erythrocytes count (nu mber/volume)Ordered By: Jordan Ortiz on 03-06-2023 RBC (Bld) [#/Vol] 3.37 10*6/uL 4.6-6.2 [facility] Blood hemoglobin measurement (mass/volume)Ordered By: Jordan Ortiz on 03-06-2023 Hemoglobin (Bld) [Mass/Vol] 10.0 g/dL 13.0-16.5 [facility] Blood lymphocytes/100 leukoc ytesOrdered By: Jordan rOtiz on 03-06-2023 Lymphocytes/100 WBC (Bld) 8.3 % 19-41 [facility] Blood monocytes/100 leukocyt esOrdered By: Jordan Ortiz on 03-06-2023 Monocytes/100 WBC (Bld) 10.8 % 0-10 [facility] Blood platelet mean volumeOr dered By: Jordan Ortiz on 03-06-2023 Platelet mean volume (Bld) [Entitic vol] 11.1 fL 6.2-12.0 [facility] Determination of erythrocyte mean corpuscular volume (MCV)Ordered By: Jordan Ortiz on 03-06-2023 MCV (RBC) [Entitic vol] 92.9 fL 80-94 [facility] Glucose Glucometer (BldC) [M ass/Vol]Ordered By: Jordan Ortiz on 03-06-2023 Glucose [Mass/Vol] 325 mg/dL 74-106 [facility] Hematocrit Auto (Bld) [Volum e fraction]Ordered By: Jordan Ortiz on 03-06-2023 Hematocrit (Bld) [Volume fraction] 31.3 % 40-54 [facility] MCHC Auto (RBC) [Mass/Vol]Or dered By: Jordan Ortiz on 03-06-2023 MCHC (RBC) [Mass/Vol] 31.9 g/dL 32-36 [facility] No Panel InformationOrdered By: Jordan Ortiz on 03-06-2023 29.7 pg 27.0-32.0 [facility] 18.0 % 11.6-14.6 [facility] 62.2 fl 35.1-43.9 [facility] 0.700 % 0.0-0.9 [facility] 0 % 0-5 [facility] 48 mL/min >60 [facility] 58 mL/min >60 [facility] 54.00 ml/min [facility] 35.9 RATIO 10-20 [facility] 34.0 mmol/L 21.0-32.0 [facility] Platelets bldOrdered By: Tino Ortiz on 03-06-2023 Platelets (Bld) [#/Vol] 244 10*3/uL 150-450 [facility] Serum or plasma calcium yocasta urement (mass/volume)Ordered By: Jordan Ortiz on 03-06-2023 Calcium [Mass/Vol] 8.9 mg/dL 8.5-10.1 [facility] Serum or plasma creatinine m easurement (mass/volume)Ordered By: Jordan Ortiz on 03-06-2023 Creatinine [Mass/Vol] 1.53 mg/dL 0.70-1.30 [facility] Serum or plasma urea nitroge n measurement (mass/volume)Ordered By: Jordan Ortiz on 03-06-2023 Urea nitrogen [Mass/Vol] 55 mg/dL 7-18 [facility] Thin prep Papanicolaou smear with manual screeningOrdered By: Jordan Ortiz on 03-06-2023 Thin prep Papanicolaou smear with manual screening 5 5-15 [facility] Basophil percentageOrdered B y: Jordan Ortiz on 03-05-2023 Basophil percentage 6.0 g/dL 6.4-8.2 [facility] Basophil percentage 0.50 mg/dL 0.20-1.00 [facility] No Panel InformationOrdered By: Jordan Ortiz on 03-05-2023 2.9 g/dL 2.2-4.2 [facility] 66 U/L 45-117 [facility] 19 U/L 16-61 [facility] 1.9 mg/dL 1.6-2.6 [facility] Serum or plasma albumin yocasta urement (mass/volume)Ordered By: Jordan Ortiz on 03-05-2023 Albumin [Mass/Vol] 3.1 g/dL 3.2-5.0 [facility] Serum or plasma albumin/glob ulin mass ratioOrdered By: Jordan Ortiz on 03-05-2023 Albumin/Globulin [Mass ratio] 1.1 {ratio} 0.9-2.4 [facility] Thin prep Papanicolaou smear with manual screeningOrdered By: Jordan Ortiz on 03-05-2023 Thin prep Papanicolaou smear with manual screening 9 U/L 15-37 [facility] Blood manual differential co mment interpretation (narrative result)Ordered By: Jordan Ortiz on 03-04-2023 Manual differential comment Sohan (Bld) [Interp] SCANNED [facility] No Panel InformationOrdered By: Jordan Ortiz on 03-03-2023 2+ [facility] 593.7 pg/mL 0-100 [facility] Macrocytes detectionOrdered By: Jordan Ortiz on 03-02-2023 Macrocytes Ql (Bld) 1+ [facility] Thin prep Papanicolaou smear with manual screeningOrdered By: Jordan Ortiz on 03-02-2023 Thin prep Papanicolaou smear with manual screening 1+ [facility] Blood platelet adequacy dete ction by light microscopyOrdered By: Mable Pritchard on 03-01-2023 Platelets LM Ql (Bld) ADEQUATE ADEQ [facility] Hypochromatic red blood cell detectionOrdered By: Mable Pritchard on 03-01-2023 Hypochromia Ql (Bld) 1+ [facility] Lower GI hemoglobin IA Ql (S tl)Ordered By: Mable Pritchard on 03-01-2023 Stool gastrointestinal hemoglobin detection by immunologic method Positive [facility] Stool gastrointestinal hemoglobin detection by immunologic method Positive [facility] No Panel InformationOrdered By: Mable Pritchard on 03-01-2023 551 pg/mL 211-911 [facility] Review by pathologistOrdered By: Mable Pritchard on 03-01-2023 Pathologist review Sohan (Unsp spec) [Interp] Reviewed [facility] Serum or plasma ferritin vasquez surement (mass/volume)Ordered By: Mable Pritchard on 03-01-2023 Ferritin [Mass/Vol] 171 ng/mL 26-388 [facility] Serum or plasma folate measu rement (mass/volume)Ordered By: Mable Pritchard on 03-01-2023 Folate [Mass/Vol] 4.90 ng/mL 3.1-55.4 [facility] Absolute lymphocyte countOrd ered By: Dwain Nowak on 02-28-2023 Lymphocytes Auto (Unsp spec) [#/Vol] 0.91 10*3/uL 0.83-4.51 [facility] Basophil percentageOrdered B y: Dwain Nowak on 02-28-2023 Basophils/100 WBC (Bld) 0.6 % 0-1 [facility] Chloride [Moles/Vol] 112 mmol/L 98-107 [facility] Eosinophils/100 WBC (Bld) 3.9 % 0-5 [facility] Glucose [Mass/Vol] 181 mg/dL 74-106 [facility] Comment on above: Fasting Glucose resu lt greater than or equal to 126 mg/dL suggests DIABETES MELLITUS per A.D.A. criteria. Neutrophils (Bld) [#/Vol] 5.8 10*3/uL 2.0-7.7 [facility] Neutrophils/100 WBC (Bld) 74.3 % 47-70 [facility] Potassium [Moles/Vol] 5.6 mmol/L 3.5-5.1 [facility] Sodium [Moles/Vol] 141 mmol/L 136-145 [facility] WBC (Bld) [#/Vol] 7.8 10*3/uL 4.4-11.0 [facility] Blood erythrocytes count (nu mber/volume)Ordered By: Dwain Nowak on 02-28-2023 RBC (Bld) [#/Vol] 2.33 10*6/uL 4.6-6.2 [facility] Blood hemoglobin measurement (mass/volume)Ordered By: Dwain Nowak on 02-28-2023 Hemoglobin (Bld) [Mass/Vol] 6.7 g/dL 13.0-16.5 [facility] Blood lymphocytes/100 leukoc ytesOrdered By: Dwain Nowak on 02-28-2023 Lymphocytes/100 WBC (Bld) 11.7 % 19-41 [facility] Blood monocytes/100 leukocyt esOrdered By: Dwain Nowak on 02-28-2023 Monocytes/100 WBC (Bld) 8.6 % 0-10 [facility] Blood platelet mean volumeOr dered By: Dwain Nowak on 02-28-2023 Platelet mean volume (Bld) [Entitic vol] 10.7 fL 6.2-12.0 [facility] Determination of erythrocyte mean corpuscular volume (MCV)Ordered By: Dwain Nowak on 02-28-2023 MCV (RBC) [Entitic vol] 100.9 fL 80-94 [facility] Hematocrit Auto (Bld) [Volum e fraction]Ordered By: Dwain Nowak on 02-28-2023 Hematocrit (Bld) [Volume fraction] 23.5 % 40-54 [facility] Hypochromatic red blood cell detectionOrdered By: Dwain Nowak on 02-28-2023 Hypochromia Ql (Bld) 1+ [facility] Iron measurement (mass/mass) Ordered By: Mable Pritchard on 02-28-2023 Iron (Unsp spec) [Mass/Mass] 33 ug/dL 65-175 [facility] - Chemistry and C hemistry - challengeOrdered By: Dwain Nowak on 02-28-2023 CO2 [Moles/Vol] 26.0 mmol/L 21.0-32.0 [facility] Urea nitrogen/Creatinine [Mass ratio] 20.0 mg/mg 10-20 [facility] - Hematology and Cell countsOrdered By: Dwain Nowak on 02-28-2023 Anisocytosis Ql (Bld) 2+ [facility] Erythrocyte distribution width (RBC) [Entitic vol] 74.5 fL 35.1-43.9 [facility] Erythrocyte distribution width (RBC) [Ratio] 19.9 % 11.6-14.6 [facility] Immature granulocytes/100 WBC (Bld) 0.900 % 0.0-0.9 [facility] Comment on above: IG% - Immature Granu locytes (promyelocytes, myelocytes and metamyelocytes) > 1% indicates that a LEFT SHIFT is Present. MCH (RBC) [Entitic mass] 28.8 pg 27.0-32.0 [facility] Nucleated RBC/100 WBC (Bld) [Ratio] 0.3 % 0-5 [facility] - Microbiology an d Antimicrobial susceptibilityOrdered By: Dwain Nowak on 02-28-2023 SARS-CoV-2 (COVID-19) RNA JUSTIN+probe Ql (Unsp spec) [facility] MCHC Auto (RBC) [Mass/Vol]Or dered By: Dwain Nowak on 02-28-2023 MCHC (RBC) [Mass/Vol] 28.5 g/dL 32-36 [facility] No Panel InformationOrdered By: Dwain Nowak on 02-28-2023 Estimated GFR (MDRD) Amer 49 mL/min >60 [facility] Comment on above: GFR Calc Estimated GFR (MDRD) Non-Af Amer 41 mL/min >60 [facility] Comment on above: Non- GFR Calc Troponin I High Sensitivity 18 pg/mL 3.0-78.0 [facility] Comment on above: Please Note: New Jennifer t Units and Gender Specific Reference Ranges. For more information see Policy Stat Procedure [place]verse High Sensitivity Troponin (TNIH) and attachments. 18 pg/mL 3.0-78.0 [facility] No Panel InformationOrdered By: Mable Pritchard on 02-28-2023 236 ug/dL 250-450 [facility] Platelets bldOrdered By: Dean Nowak on 02-28-2023 Platelets (Bld) [#/Vol] 278 10*3/uL 150-450 [facility] Respiratory pathogens detect ion panel by molecular detection methodOrdered By: Mable Pritchard on 02-28-2023 Respiratory pathogens DNA and RNA panel JUSTIN+probe (Resp) [facility] Respiratory pathogens DNA and RNA panel JUSTIN+probe (Resp) [facility] Serum or plasma calcium yocasta urement (mass/volume)Ordered By: Dwain Nowak on 02-28-2023 Calcium [Mass/Vol] 8.5 mg/dL 8.5-10.1 [facility] Serum or plasma creatinine m easurement (mass/volume)Ordered By: Dwain Nowak on 02-28-2023 Creatinine [Mass/Vol] 1.75 mg/dL 0.70-1.30 [facility] Comment on above: The validity of the calculated GFR & GFRAA in patients over 70 years has not been determined. Clinical correlation is essential. Serum or plasma iron saturat ion measurement (mass fraction)Ordered By: Mable Pritchard on 02-28-2023 Iron saturation [Mass fraction] 14.0 % 15.0-55.0 [facility] Serum or plasma urea nitroge n measurement (mass/volume)Ordered By: Dwain Nowak on 02-28-2023 Urea nitrogen [Mass/Vol] 35 mg/dL 7-18 [facility] Thin prep Papanicolaou smear with manual screeningOrdered By: Dwain Nowak on 02-28-2023 Thin prep Papanicolaou smear with manual screening 3 5-15 [facility] Stool gastrointestinal hemog lobin detection by immunologic methodOrdered By: Tobi Zapata on 01-30-2023 Lower GI hemoglobin IA Ql (Stl) [facility] Lower GI hemoglobin IA Ql (Stl) [facility] Absolute lymphocyte countOrd ered By: Tobi Zapata on 01-21-2023 Lymphocytes Auto (Unsp spec) [#/Vol] 2.12 10*3/uL 0.83-4.51 [facility] Basophil percentageOrdered B y: Tobi Zapata on 01-21-2023 Basophil percentage 401 mg/dL 74-106 [facility] Basophil percentage 6.7 g/dL 6.4-8.2 [facility] Basophil percentage 0.30 mg/dL 0.20-1.00 [facility] Basophil percentage 137 mmol/L 136-145 [facility] Basophil percentage 4.1 mmol/L 3.5-5.1 [facility] Basophil percentage 98 mmol/L 98-107 [facility] Basophil percentage 156 U/L 87-241 [facility] Basophils (Bld) [#/Vol] 11.0 10*3/uL 4.4-11.0 [facility] Basophils (Bld) [#/Vol] 7.5 10*3/uL 2.0-7.7 [facility] Basophils/100 WBC (Bld) 0.3 % 0-1 [facility] Basophils/100 WBC (Bld) 68.2 % 47-70 [facility] Basophils/100 WBC (Bld) 1.4 % 0-5 [facility] Bilirubin [Mass/Vol] 0.30 mg/dL 0.20-1.00 [facility] Comment on above: For patients on eltr ombopag therapy, use of Dimension Converse TBIL is not recommended. Chloride [Moles/Vol] 98 mmol/L 98-107 [facility] Eosinophils/100 WBC (Bld) 1.4 % 0-5 [facility] Glucose [Mass/Vol] 401 mg/dL 74-106 [facility] Comment on above: Glucose result great er than or equal to 200 mg/dLsuggests DIABETES MELLITUS per A.D.A. criteria. LDH [Catalytic activity/Vol] 156 U/L 87-241 [facility] Neutrophils (Bld) [#/Vol] 7.5 10*3/uL 2.0-7.7 [facility] Neutrophils/100 WBC (Bld) 68.2 % 47-70 [facility] Potassium [Moles/Vol] 4.1 mmol/L 3.5-5.1 [facility] Protein [Mass/Vol] 6.7 g/dL 6.4-8.2 [facility] Sodium [Moles/Vol] 137 mmol/L 136-145 [facility] WBC (Bld) [#/Vol] 11.0 10*3/uL 4.4-11.0 [facility] Blood erythrocytes count (nu mber/volume)Ordered By: Tobi Zapata on 01-21-2023 RBC (Bld) [#/Vol] 2.76 10*6/uL 4.6-6.2 [facility] Blood hemoglobin measurement (mass/volume)Ordered By: Tobi Zapata on 01-21-2023 Hemoglobin (Bld) [Mass/Vol] 7.4 g/dL 13.0-16.5 [facility] Blood lymphocytes/100 leukoc ytesOrdered By: Tobi Zapata on 01-21-2023 Lymphocytes/100 WBC (Bld) 19.3 % 19-41 [facility] Blood monocytes/100 leukocyt esOrdered By: Tobi Zapata on 01-21-2023 Monocytes/100 WBC (Bld) 9.4 % 0-10 [facility] Blood platelet mean volumeOr dered By: Tobi Zapata on 01-21-2023 Platelet mean volume (Bld) [Entitic vol] 10.9 fL 6.2-12.0 [facility] Determination of erythrocyte mean corpuscular volume (MCV)Ordered By: Tobi Zapata on 01-21-2023 MCV (RBC) [Entitic vol] 88.4 fL 80-94 [facility] Hematocrit Auto (Bld) [Volum e fraction]Ordered By: Tobi Zapata on 01-21-2023 Hematocrit (Bld) [Volume fraction] 24.4 % 40-54 [facility] Iron measurement (mass/mass) Ordered By: Tobi Zapata on 01-21-2023 Iron (Unsp spec) [Mass/Mass] 29 ug/dL 65-175 [facility] - Chemistry and C hemistry - challengeOrdered By: Tobi Zapata on 01-21-2023 ALP [Catalytic activity/Vol] 75 U/L 45-117 [facility] ALT [Catalytic activity/Vol] 16 U/L 16-61 [facility] CO2 [Moles/Vol] 30.0 mmol/L 21.0-32.0 [facility] Globulin (S) [Mass/Vol] 3.3 g/dL 2.2-4.2 [facility] Urea nitrogen/Creatinine [Mass ratio] 29.5 mg/mg 10-20 [facility] - Hematology and Cell countsOrdered By: Tobi Zapata on 01-21-2023 Erythrocyte distribution width (RBC) [Entitic vol] 50.6 fL 35.1-43.9 [facility] Erythrocyte distribution width (RBC) [Ratio] 15.9 % 11.6-14.6 [facility] Immature granulocytes/100 WBC (Bld) 1.400 % 0.0-0.9 [facility] Comment on above: IG% - Immature Granu locytes (promyelocytes, myelocytes and metamyelocytes) > 1% indicates that a LEFT SHIFT is Present. MCH (RBC) [Entitic mass] 26.8 pg 27.0-32.0 [facility] Nucleated RBC/100 WBC (Bld) [Ratio] 0.2 % 0-5 [facility] MCHC Auto (RBC) [Mass/Vol]Or dered By: Tobi Zapata on 01-21-2023 MCHC (RBC) [Mass/Vol] 30.3 g/dL 32-36 [facility] No Panel InformationOrdered By: Tobi Zapata on 01-21-2023 Estimated Creatinine Clearance Calc 31.85 ml/min [facility] Estimated GFR (MDRD) Amer 38 mL/min >60 [facility] Comment on above: GFR Calc Estimated GFR (MDRD) Non-Af Amer 31 mL/min >60 [facility] Comment on above: Non- GFR Calc Total Iron Binding Capacity 325 ug/dL 250-450 [facility] 26.8 pg 27.0-32.0 [facility] 15.9 % 11.6-14.6 [facility] 50.6 fl 35.1-43.9 [facility] 1.400 % 0.0-0.9 [facility] 0.2 % 0-5 [facility] 31 mL/min >60 [facility] 38 mL/min >60 [facility] 31.85 ml/min [facility] 29.5 RATIO 10-20 [facility] 3.3 g/dL 2.2-4.2 [facility] 75 U/L 45-117 [facility] 16 U/L 16-61 [facility] 30.0 mmol/L 21.0-32.0 [facility] 325 ug/dL 250-450 [facility] Platelets bldOrdered By: Mikael Zapata on 01-21-2023 Platelets (Bld) [#/Vol] 446 10*3/uL 150-450 [facility] Serum or plasma C reactive p rotein measurement (mass/volume)Ordered By: Tobi Nieves on 01-21-2023 CRP [Mass/Vol] 5.97 mg/L 0.0-3.0 [facility] Comment on above: C-Reactive Protein ( CRP) provides useful information for thediagnosis, therapy and monitoring of inflammatory processesand associated diseases. For the evaluation of Relative Riskfor Cardiovascular Disease, a High Sensitivity CRP (HSCRP)should be ordered. Serum or plasma albumin yocasta urement (mass/volume)Ordered By: Tobi Nieves on 01-21-2023 Albumin [Mass/Vol] 3.4 g/dL 3.2-5.0 [facility] Serum or plasma albumin/glob ulin mass ratioOrdered By: [facility] Albumin/Globulin [Mass ratio] 1.0 {ratio} 0.9-2.4 [facility] Serum or plasma calcium yocasta urement (mass/volume)Ordered By: Tobi Nieves on 01-21-2023 Calcium [Mass/Vol] 8.9 mg/dL 8.5-10.1 [facility] Serum or plasma creatinine m easurement (mass/volume)Ordered By: Tobi [facility] on 01-21-2023 Creatinine [Mass/Vol] 2.20 mg/dL 0.70-1.30 [facility] Comment on above: The validity of the calculated GFR & GFRAA in patients over 70 years has not been determined. Clinical correlation is essential. Serum or plasma ferritin vasquez surement (mass/volume)Ordered By: Tobi Nieves on 01-21-2023 Ferritin [Mass/Vol] 48 ng/mL 26-388 [facility] Serum or plasma iron saturat ion measurement (mass fraction)Ordered By: [facility] on 01-21-2023 Iron saturation [Mass fraction] 8.9 % 15.0-55.0 [facility] Serum or plasma urea nitroge n measurement (mass/volume)Ordered By: Tobi [facility] on 01-21-2023 Urea nitrogen [Mass/Vol] 65 mg/dL 7-18 [facility] Thin prep Papanicolaou smear with manual screeningOrdered By: Tobi Zapata on 01-21-2023 Thin prep Papanicolaou smear with manual screening < 3 U/L 15-37 [facility] Thin prep Papanicolaou smear with manual screening 9 5-15 [facility] - Chemistry and C hemistry - challengeOrdered By: Tobi Zapata on 11-26-2022 Cobalamin (Vitamin B12) [Mass/Vol] 924 pg/mL 211-911 [facility] - Chemistry and C hemistry - challengeOrdered By: Donna Will on 11-26-2022 Magnesium [Mass/Vol] 1.9 mg/dL 1.6-2.6 [facility] No Panel InformationOrdered By: Donna Will on 11-26-2022 1.9 mg/dL 1.6-2.6 [facility] No Panel InformationOrdered By: Tobi Zapata on 11-26-2022 924 pg/mL 91 [facility] Serum or plasma folate measu rement (mass/volume)Ordered By: Tobi Zapata on 11-26-2022 Folate [Mass/Vol] 5.30 ng/mL 3.1-55.4 [facility] Absolute lymphocyte countOrd ered By: Jordan Ortiz on 11-17-2022 Lymphocytes Auto (Unsp spec) [#/Vol] 1.51 10*3/uL 0.83-4.51 [facility] Basophil percentageOrdered B y: Jordan Ortiz on 11-17-2022 Basophil percentage 3.8 mg/dL 2.5-4.9 [facility] Basophil percentage 143 mg/dL 74-106 [facility] Basophil percentage 139 mmol/L 136-145 [facility] Basophil percentage 4.2 mmol/L 3.5-5.1 [facility] Basophil percentage 104 mmol/L 98-107 [facility] Basophils (Bld) [#/Vol] 7.8 10*3/uL 4.4-11.0 [facility] Basophils (Bld) [#/Vol] 4.7 10*3/uL 2.0-7.7 [facility] Basophils/100 WBC (Bld) 0.6 % 0-1 [facility] Basophils/100 WBC (Bld) 60.4 % 47-70 [facility] Basophils/100 WBC (Bld) 6.6 % 0-5 [facility] Chloride [Moles/Vol] 104 mmol/L 98-107 [facility] Eosinophils/100 WBC (Bld) 6.6 % 0-5 [facility] Glucose [Mass/Vol] 143 mg/dL 74-106 [facility] Comment on above: Fasting Glucose resu lt greater than or equal to 126 mg/dL suggests DIABETES MELLITUS per A.D.A. criteria. Neutrophils (Bld) [#/Vol] 4.7 10*3/uL 2.0-7.7 [facility] Neutrophils/100 WBC (Bld) 60.4 % 47-70 [facility] Potassium [Moles/Vol] 4.2 mmol/L 3.5-5.1 [facility] Sodium [Moles/Vol] 139 mmol/L 136-145 [facility] WBC (Bld) [#/Vol] 7.8 10*3/uL 4.4-11.0 [facility] Blood erythrocytes count (nu mber/volume)Ordered By: Jordan Ortiz on 11-17-2022 RBC (Bld) [#/Vol] 2.86 10*6/uL 4.6-6.2 [facility] Blood hemoglobin measurement (mass/volume)Ordered By: Jordan Ortiz on 11-17-2022 Hemoglobin (Bld) [Mass/Vol] 8.1 g/dL 13.0-16.5 [facility] Blood lymphocytes/100 leukoc ytesOrdered By: Jordan Ortiz on 11-17-2022 Lymphocytes/100 WBC (Bld) 19.4 % 19-41 [facility] Blood monocytes/100 leukocyt esOrdered By: Jordan Ortiz on 11-17-2022 Monocytes/100 WBC (Bld) 12.0 % 0-10 [facility] Blood platelet mean volumeOr dered By: Jordan Ortiz on 11-17-2022 Platelet mean volume (Bld) [Entitic vol] 10.9 fL 6.2-12.0 [facility] Determination of erythrocyte mean corpuscular volume (MCV)Ordered By: Jordan Ortiz on 11-17-2022 MCV (RBC) [Entitic vol] 94.1 fL 80-94 [facility] Glucose Glucometer (BldC) [M ass/Vol]Ordered By: Jordan Ortiz on 11-17-2022 Glucose [Mass/Vol] 217 mg/dL 74-106 [facility] Comment on above: MANAGEMENT OF PATIEN T CARE PER NURSING PROTOCOL Hematocrit Auto (Bld) [Volum e fraction]Ordered By: Jordan Ortiz on 11-17-2022 Hematocrit (Bld) [Volume fraction] 26.9 % 40-54 [facility] - Chemistry and C hemistry - challengeOrdered By: Jordan Ortiz on 11-17-2022 CO2 [Moles/Vol] 33.0 mmol/L 21.0-32.0 [facility] Magnesium [Mass/Vol] 2.1 mg/dL 1.6-2.6 [facility] Urea nitrogen/Creatinine [Mass ratio] 15.8 mg/mg 10-20 [facility] - Hematology and Cell countsOrdered By: Jordan Ortiz on 11-17-2022 Erythrocyte distribution width (RBC) [Entitic vol] 53.9 fL 35.1-43.9 [facility] Erythrocyte distribution width (RBC) [Ratio] 15.8 % 11.6-14.6 [facility] Immature granulocytes/100 WBC (Bld) 1.000 % 0.0-0.9 [facility] Comment on above: IG% - Immature Granu locytes (promyelocytes, myelocytes and metamyelocytes) > 1% indicates that a LEFT SHIFT is Present. MCH (RBC) [Entitic mass] 28.3 pg 27.0-32.0 [facility] Nucleated RBC/100 WBC (Bld) [Ratio] 0.3 % 0-5 [facility] MCHC Auto (RBC) [Mass/Vol]Or dered By: Jordan Ortiz on 11-17-2022 MCHC (RBC) [Mass/Vol] 30.1 g/dL 32-36 [facility] No Panel InformationOrdered By: Jordan Ortiz on 11-17-2022 Estimated Creatinine Clearance Calc 42.47 ml/min [facility] Estimated GFR (MDRD) Amer 53 mL/min >60 [facility] Comment on above: GFR Calc Estimated GFR (MDRD) Non-Af Amer 44 mL/min >60 [facility] Comment on above: Non- GFR Calc 28.3 pg 27.0-32.0 [facility] 15.8 % 11.6-14.6 [facility] 53.9 fl 35.1-43.9 [facility] 1.000 % 0.0-0.9 [facility] 0.3 % 0-5 [facility] 44 mL/min >60 [facility] 53 mL/min >60 [facility] 42.47 ml/min [facility] 15.8 RATIO 10-20 [facility] 2.1 mg/dL 1.6-2.6 [facility] 33.0 mmol/L 21.0-32.0 [facility] Platelets bldOrdered By: Tino Ortiz on 11-17-2022 Platelets (Bld) [#/Vol] 240 10*3/uL 150-450 [facility] Serum or plasma calcium yocasta urement (mass/volume)Ordered By: Jordan Ortiz on 11-17-2022 Calcium [Mass/Vol] 8.2 mg/dL 8.5-10.1 [facility] Serum or plasma creatinine m easurement (mass/volume)Ordered By: Jordan Ortiz on 11-17-2022 Creatinine [Mass/Vol] 1.65 mg/dL 0.70-1.30 [facility] Comment on above: The validity of the calculated GFR & GFRAA in patients over 70 years has not been determined. Clinical correlation is essential. Serum or plasma urea nitroge n measurement (mass/volume)Ordered By: Jordan Ortiz on 11-17-2022 Urea nitrogen [Mass/Vol] 26 mg/dL 7-18 [facility] Thin prep Papanicolaou smear with manual screeningOrdered By: Jordan Ortiz on 11-17-2022 Thin prep Papanicolaou smear with manual screening 2 5-15 [facility] Absolute lymphocyte countOrd ered By: Jj Garcia on 11-15-2022 Lymphocytes Auto (Unsp spec) [#/Vol] 1.31 10*3/uL 0.83-4.51 [facility] Basophil percentageOrdered B y: Jj Garcia on 11-15-2022 Basophils/100 WBC (Bld) 0.8 % 0-1 [facility] Chloride [Moles/Vol] 107 mmol/L 98-107 [facility] Eosinophils/100 WBC (Bld) 6.0 % 0-5 [facility] Glucose [Mass/Vol] 221 mg/dL 74-106 [facility] Comment on above: Glucose result great er than or equal to 200 mg/dLsuggests DIABETES MELLITUS per A.D.A. criteria. Neutrophils (Bld) [#/Vol] 4.8 10*3/uL 2.0-7.7 [facility] Neutrophils/100 WBC (Bld) 65.2 % 47-70 [facility] Potassium [Moles/Vol] 4.7 mmol/L 3.5-5.1 [facility] Sodium [Moles/Vol] 139 mmol/L 136-145 [facility] WBC (Bld) [#/Vol] 7.3 10*3/uL 4.4-11.0 [facility] Blood erythrocytes count (nu mber/volume)Ordered By: Jj Garcia on 11-15-2022 RBC (Bld) [#/Vol] 2.77 10*6/uL 4.6-6.2 [facility] Blood hemoglobin measurement (mass/volume)Ordered By: Jj Garcia on 11-15-2022 Hemoglobin (Bld) [Mass/Vol] 7.9 g/dL 13.0-16.5 [facility] Blood lymphocytes/100 leukoc ytesOrdered By: Jj Garcia on 11-15-2022 Lymphocytes/100 WBC (Bld) 17.9 % 19-41 [facility] Blood monocytes/100 leukocyt esOrdered By: Jj Garcia on 11-15-2022 Monocytes/100 WBC (Bld) 8.9 % 0-10 [facility] Blood platelet mean volumeOr dered By: Jj Garcia on 11-15-2022 Platelet mean volume (Bld) [Entitic vol] 10.9 fL 6.2-12.0 [facility] Determination of erythrocyte mean corpuscular volume (MCV)Ordered By: Jj Garcia on 11-15-2022 MCV (RBC) [Entitic vol] 96.4 fL 80-94 [facility] Hematocrit Auto (Bld) [Volum e fraction]Ordered By: Jjdaisy Garcia on 11-15-2022 Hematocrit (Bld) [Volume fraction] 26.7 % 40-54 [facility] Iron measurement (mass/mass) Ordered By: Loki Lozoya on 11-15-2022 Iron (Unsp spec) [Mass/Mass] 51 ug/dL 65-175 [facility] - Chemistry and C hemistry - challengeOrdered By: [facility] on 11-15-2022 CO2 [Moles/Vol] 33.0 mmol/L 21.0-32.0 [facility] Natriuretic peptide B (Bld) [Mass/Vol] 298.1 pg/mL 0-100 [facility] Urea nitrogen/Creatinine [Mass ratio] 13.6 mg/mg 10-20 [facility] - Hematology and Cell countsOrdered By: [facility] on 11-15-2022 Erythrocyte distribution width (RBC) [Entitic vol] 54.0 fL 35.1-43.9 [facility] Erythrocyte distribution width (RBC) [Ratio] 15.8 % 11.6-14.6 [facility] Immature granulocytes/100 WBC (Bld) 1.200 % 0.0-0.9 [facility] Comment on above: IG% - Immature Granu locytes (promyelocytes, myelocytes and metamyelocytes) > 1% indicates that a LEFT SHIFT is Present. MCH (RBC) [Entitic mass] 28.5 pg 27.0-32.0 [facility] Nucleated RBC/100 WBC (Bld) [Ratio] 0 % 0-5 [facility] MCHC Auto (RBC) [Mass/Vol]Or dered By: Jjdaisy Garcia on 11-15-2022 MCHC (RBC) [Mass/Vol] 29.6 g/dL 32-36 [facility] No Panel InformationOrdered By: Loki Lozoya on 11-15-2022 Total Iron Binding Capacity 243 ug/dL 250-450 [facility] Troponin I High Sensitivity 15 pg/mL 3.0-78.0 [facility] Comment on above: Please Note: New Jennifer t Units and Gender Specific Reference Ranges. For more information see Policy Stat Procedure Converse High Sensitivity Troponin (TNIH) and attachments. 15 pg/mL 3.0-78.0 [facility] 243 ug/dL 250-450 [facility] No Panel InformationOrdered By: Jj Garcia on 11-15-2022 Estimated Creatinine Clearance Calc 31.52 ml/min [facility] Estimated GFR (MDRD) Amer 57 mL/min >60 [facility] Comment on above: GFR Calc Estimated GFR (MDRD) Non-Af Amer 47 mL/min >60 [facility] Comment on above: Non- GFR Calc Troponin I High Sensitivity 17 pg/mL 3.0-78.0 [facility] Comment on above: Please Note: New Jennifer t Units and Gender Specific Reference Ranges. For more information see Policy Stat Procedure [place]verse High Sensitivity Troponin (TNIH) and attachments. 298.1 pg/mL 0-100 [facility] Platelets bldOrdered By: Jj Garcia on 11-15-2022 Platelets (Bld) [#/Vol] 274 10*3/uL 150-450 [facility] Serum or plasma calcium yocasta urement (mass/volume)Ordered By: Jj Garcia on 11-15-2022 Calcium [Mass/Vol] 8.5 mg/dL 8.5-10.1 [facility] Serum or plasma creatinine m easurement (mass/volume)Ordered By: Jj Garcia on 11-15-2022 Creatinine [Mass/Vol] 1.54 mg/dL 0.70-1.30 [facility] Comment on above: The validity of the calculated GFR & GFRAA in patients over 70 years has not been determined. Clinical correlation is essential. Serum or plasma ferritin vasquez surement (mass/volume)Ordered By: Loki Lozoya on 11-15-2022 Ferritin [Mass/Vol] 111 ng/mL 26-388 [facility] Serum or plasma iron saturat ion measurement (mass fraction)Ordered By: Loki Lozoya on 11-15-2022 Iron saturation [Mass fraction] 21.0 % 15.0-55.0 [facility] Serum or plasma urea nitroge n measurement (mass/volume)Ordered By: Jj Garcia on 11-15-2022 Urea nitrogen [Mass/Vol] 21 mg/dL 7-18 [facility] Thin prep Papanicolaou smear with manual screeningOrdered By: Jj Garcia on 11-15-2022 Thin prep Papanicolaou smear with manual screening -1 5-15 [facility] Whole blood hemoglobin A1c/t otal hemoglobin ratio (mass fraction)Ordered By: Loki Lozoya on 11-15-2022 HbA1c (Bld) [Mass fraction] 8.6 % 3.8-5.6 [facility] Comment on above: Normal < 5.7 % Predi abetic 5.7 - 6.4 % Diabetic >or= 6.5 % Please note range changes. Absolute lymphocyte countOrd ered By: Martha Dodson on 10-29-2022 Lymphocytes Auto (Unsp spec) [#/Vol] 1.37 10*3/uL 0.83-4.51 [facility] Basophil percentageOrdered B y: Martha Dodson on 10-29-2022 Basophils/100 WBC (Bld) 0.6 % 0-1 [facility] Bilirubin [Mass/Vol] 0.40 mg/dL 0.20-1.00 [facility] Comment on above: For patients on eltr ombopag therapy, use of Dimension Converse TBIL is not recommended. Chloride [Moles/Vol] 107 mmol/L 98-107 [facility] Eosinophils/100 WBC (Bld) 4.9 % 0-5 [facility] Glucose [Mass/Vol] 204 mg/dL 74-106 [facility] Comment on above: Glucose result great er than or equal to 200 mg/dLsuggests DIABETES MELLITUS per A.D.A. criteria. LDH [Catalytic activity/Vol] 173 U/L 87-241 [facility] Neutrophils (Bld) [#/Vol] 4.5 10*3/uL 2.0-7.7 [facility] Neutrophils/100 WBC (Bld) 64.4 % 47-70 [facility] Potassium [Moles/Vol] 3.8 mmol/L 3.5-5.1 [facility] Protein [Mass/Vol] 6.4 g/dL 6.4-8.2 [facility] Sodium [Moles/Vol] 140 mmol/L 136-145 [facility] WBC (Bld) [#/Vol] 6.9 10*3/uL 4.4-11.0 [facility] Blood erythrocytes count (nu mber/volume)Ordered By: Martha Dodson on 10-29-2022 RBC (Bld) [#/Vol] 2.80 10*6/uL 4.6-6.2 [facility] Blood hemoglobin measurement (mass/volume)Ordered By: Martha Dodson on 10-29-2022 Hemoglobin (Bld) [Mass/Vol] 7.9 g/dL 13.0-16.5 [facility] Blood lymphocytes/100 leukoc ytesOrdered By: Martha Dodson on 10-29-2022 Lymphocytes/100 WBC (Bld) 19.7 % 19-41 [facility] Blood monocytes/100 leukocyt esOrdered By: Martha Dodson on 10-29-2022 Monocytes/100 WBC (Bld) 9.4 % 0-10 [facility] Blood platelet mean volumeOr dered By: Marthabinh Dodson on 10-29-2022 Platelet mean volume (Bld) [Entitic vol] 10.2 fL 6.2-12.0 [facility] Determination of erythrocyte mean corpuscular volume (MCV)Ordered By: Martha Dodson on 10-29-2022 MCV (RBC) [Entitic vol] 94.6 fL 80-94 [facility] Hematocrit Auto (Bld) [Volum e fraction]Ordered By: Martha Dodson on 10-29-2022 Hematocrit (Bld) [Volume fraction] 26.5 % 40-54 [facility] - Chemistry and C hemistry - challengeOrdered By: Martha Dodson on 10-29-2022 ALP [Catalytic activity/Vol] 76 U/L 45-117 [facility] ALT [Catalytic activity/Vol] 13 U/L 16-61 [facility] CO2 [Moles/Vol] 28.0 mmol/L 21.0-32.0 [facility] Globulin (S) [Mass/Vol] 3.1 g/dL 2.2-4.2 [facility] Urea nitrogen/Creatinine [Mass ratio] 15.4 mg/mg 10-20 [facility] - Hematology and Cell countsOrdered By: Martha Dodson on 10-29-2022 Erythrocyte distribution width (RBC) [Entitic vol] 49.1 fL 35.1-43.9 [facility] Erythrocyte distribution width (RBC) [Ratio] 14.2 % 11.6-14.6 [facility] Immature granulocytes/100 WBC (Bld) 1.000 % 0.0-0.9 [facility] Comment on above: IG% - Immature Granu locytes (promyelocytes, myelocytes and metamyelocytes) > 1% indicates that a LEFT SHIFT is Present. MCH (RBC) [Entitic mass] 28.2 pg 27.0-32.0 [facility] Nucleated RBC/100 WBC (Bld) [Ratio] 0 % 0-5 [facility] MCHC Auto (RBC) [Mass/Vol]Or dered By: Martha Dodson on 10-29-2022 MCHC (RBC) [Mass/Vol] 29.8 g/dL 32-36 [facility] No Panel InformationOrdered By: Martha Dodson on 10-29-2022 Estimated Creatinine Clearance Calc 47.03 ml/min [facility] Estimated GFR (MDRD) Amer 59 mL/min >60 [facility] Comment on above: GFR Calc Estimated GFR (MDRD) Non-Af Amer 49 mL/min >60 [facility] Comment on above: Non- GFR Calc Platelets bldOrdered By: Jayden Dodson on 10-29-2022 Platelets (Bld) [#/Vol] 269 10*3/uL 150-450 [facility] Serum or plasma albumin yocasta urement (mass/volume)Ordered By: Martha Dodson on 10-29-2022 Albumin [Mass/Vol] 3.3 g/dL 3.2-5.0 [facility] Serum or plasma albumin/glob ulin mass ratioOrdered By: Martha Dodson on 10-29-2022 Albumin/Globulin [Mass ratio] 1.1 {ratio} 0.9-2.4 [facility] Serum or plasma calcium yocasta urement (mass/volume)Ordered By: Martha Dodson on 10-29-2022 Calcium [Mass/Vol] 8.5 mg/dL 8.5-10.1 [facility] Serum or plasma creatinine m easurement (mass/volume)Ordered By: Martha Dodson on 10-29-2022 Creatinine [Mass/Vol] 1.49 mg/dL 0.70-1.30 [facility] Comment on above: The validity of the calculated GFR & GFRAA in patients over 70 years has not been determined. Clinical correlation is essential. Serum or plasma urea nitroge n measurement (mass/volume)Ordered By: Martha Dodson on 10-29-2022 Urea nitrogen [Mass/Vol] 23 mg/dL 7-18 [facility] Thin prep Papanicolaou smear with manual screeningOrdered By: Martha Dodson on 10-29-2022 Thin prep Papanicolaou smear with manual screening 8 U/L 15-37 [facility] Thin prep Papanicolaou smear with manual screening 5 5-15 [facility] Iron measurement (mass/mass) Ordered By: Martha Dodson on 09-30-2022 Iron (Unsp spec) [Mass/Mass] 30 ug/dL 65-175 [facility] No Panel InformationOrdered By: Martha Dodson on 09-30-2022 Thyroid Stimulating Hormone (TSH) 1.54 uIU/mL 0.358-3.74 [facility] Total Iron Binding Capacity 278 ug/dL 250-450 [facility] 1.54 uIU/mL 0.358-3.74 [facility] Serum or plasma ferritin vasquez surement (mass/volume)Ordered By: Martha Dodson on 09-30-2022 Ferritin [Mass/Vol] 37 ng/mL 26-388 [facility] Serum or plasma iron saturat ion measurement (mass fraction)Ordered By: Martha Dodson on 09-30-2022 Iron saturation [Mass fraction] 10.8 % 15.0-55.0 [facility] - Chemistry and C hemistry - challengeOrdered By: Tobi Zapata on 09-04-2022 Cobalamin (Vitamin B12) [Mass/Vol] 547 pg/mL 211-911 [facility] Serum or plasma folate measu rement (mass/volume)Ordered By: Tobi Zapata on 09-04-2022 Folate [Mass/Vol] 6.50 ng/mL 3.1-55.4 [facility] Absolute lymphocyte countOrd ered By: Adam Freeman on 07-06-2023 Lymphocytes Auto (Unsp spec) [#/Vol] 1.02 10*3/uL 0.83-4.51 [facility] Basophil percentageOrdered B y: Adam Freeman on 08-29-2022 Basophils/100 WBC (Bld) 0.6 % 0-1 [facility] Bilirubin [Mass/Vol] 0.40 mg/dL 0.20-1.00 [facility] Comment on above: For patients on eltr ombopag therapy, use of Dimension Converse TBIL is not recommended. Chloride [Moles/Vol] 106 mmol/L 98-107 [facility] Eosinophils/100 WBC (Bld) 4.3 % 0-5 [facility] Glucose [Mass/Vol] 338 mg/dL 74-106 [facility] Comment on above: Glucose result great er than or equal to 200 mg/dLsuggests DIABETES MELLITUS per A.D.A. criteria. Neutrophils (Bld) [#/Vol] 4.5 10*3/uL 2.0-7.7 [facility] Neutrophils/100 WBC (Bld) 68.2 % 47-70 [facility] Potassium [Moles/Vol] 4.3 mmol/L 3.5-5.1 [facility] Protein [Mass/Vol] 7.0 g/dL 6.4-8.2 [facility] Sodium [Moles/Vol] 139 mmol/L 136-145 [facility] WBC (Bld) [#/Vol] 6.5 10*3/uL 4.4-11.0 [facility] Blood erythrocytes count (nu mber/volume)Ordered By: Adam Freeman on 08-29-2022 RBC (Bld) [#/Vol] 2.58 10*6/uL 4.6-6.2 [facility] Blood hemoglobin measurement (mass/volume)Ordered By: Adam Freeman on 08-29-2022 Hemoglobin (Bld) [Mass/Vol] 7.9 g/dL 13.0-16.5 [facility] Blood hemoglobin measurement (mass/volume)Ordered By: Khai Galeana on 08-29-2022 Hemoglobin (Bld) [Mass/Vol] 7.8 g/dL 13.0-16.5 [facility] Blood lymphocytes/100 leukoc ytesOrdered By: Adam Freeman on 08-29-2022 Lymphocytes/100 WBC (Bld) 15.6 % 19-41 [facility] Blood monocytes/100 leukocyt esOrdered By: Adam Freeman on 08-29-2022 Monocytes/100 WBC (Bld) 10.4 % 0-10 [facility] Blood platelet mean volumeOr dered By: Adam Freeman on 08-29-2022 Platelet mean volume (Bld) [Entitic vol] 10.4 fL 6.2-12.0 [facility] Determination of erythrocyte mean corpuscular volume (MCV)Ordered By: Adam Freeman on 08-29-2022 MCV (RBC) [Entitic vol] 95.7 fL 80-94 [facility] Hematocrit Auto (Bld) [Volum e fraction]Ordered By: Adam Freeman on 08-29-2022 Hematocrit (Bld) [Volume fraction] 24.7 % 40-54 [facility] Hematocrit Auto (Bld) [Volum e fraction]Ordered By: Khai Galeana on 08-29-2022 Hematocrit (Bld) [Volume fraction] 26.2 % 40-54 [facility] - Chemistry and C hemistry - challengeOrdered By: Adam Freeman on 08-29-2022 ALP [Catalytic activity/Vol] 86 U/L 45-117 [facility] ALT [Catalytic activity/Vol] 19 U/L 16-61 [facility] CO2 [Moles/Vol] 28.0 mmol/L 21.0-32.0 [facility] Globulin (S) [Mass/Vol] 3.6 g/dL 2.2-4.2 [facility] Urea nitrogen/Creatinine [Mass ratio] 20.3 mg/mg 10-20 [facility] - Hematology and Cell countsOrdered By: Adam Freeman on 08-29-2022 Erythrocyte distribution width (RBC) [Entitic vol] 50.5 fL 35.1-43.9 [facility] Erythrocyte distribution width (RBC) [Ratio] 14.7 % 11.6-14.6 [facility] Immature granulocytes/100 WBC (Bld) 0.900 % 0.0-0.9 [facility] Comment on above: IG% - Immature Granu locytes (promyelocytes, myelocytes and metamyelocytes) > 1% indicates that a LEFT SHIFT is Present. MCH (RBC) [Entitic mass] 30.6 pg 27.0-32.0 [facility] Nucleated RBC/100 WBC (Bld) [Ratio] 0 % 0-5 [facility] MCHC Auto (RBC) [Mass/Vol]Or dered By: Adam Freeman on 08-29-2022 MCHC (RBC) [Mass/Vol] 32.0 g/dL 32-36 [facility] No Panel InformationOrdered By: Adam Freeman on 08-29-2022 Estimated GFR (MDRD) Amer 62 mL/min >60 [facility] Comment on above: GFR Calc Estimated GFR (MDRD) Non-Af Amer 52 mL/min >60 [facility] Comment on above: Non- GFR Calc Platelets bldOrdered By: Valerie Freeman on 08-29-2022 Platelets (Bld) [#/Vol] 264 10*3/uL 150-450 [facility] Serum or plasma albumin yocasta urement (mass/volume)Ordered By: Adam Freeman on 08-29-2022 Albumin [Mass/Vol] 3.4 g/dL 3.2-5.0 [facility] Serum or plasma albumin/glob ulin mass ratioOrdered By: Adam Freeman on 08-29-2022 Albumin/Globulin [Mass ratio] 0.9 {ratio} 0.9-2.4 [facility] Serum or plasma calcium yocasta urement (mass/volume)Ordered By: Adam Freeman on 08-29-2022 Calcium [Mass/Vol] 8.8 mg/dL 8.5-10.1 [facility] Serum or plasma creatinine m easurement (mass/volume)Ordered By: Adam Freeman on 08-29-2022 Creatinine [Mass/Vol] 1.43 mg/dL 0.70-1.30 [facility] Comment on above: The validity of the calculated GFR & GFRAA in patients over 70 years has not been determined. Clinical correlation is essential. Serum or plasma urea nitroge n measurement (mass/volume)Ordered By: Adam Freeman on 08-29-2022 Urea nitrogen [Mass/Vol] 29 mg/dL 7-18 [facility] Thin prep Papanicolaou smear with manual screeningOrdered By: Adam Freeman on 08-29-2022 Thin prep Papanicolaou smear with manual screening 9 U/L 15-37 [facility] Thin prep Papanicolaou smear with manual screening 5 5-15 [facility] Absolute lymphocyte countOrd ered By: Tobi Zapata on 08-08-2022 Lymphocytes Auto (Unsp spec) [#/Vol] 1.70 10*3/uL 0.83-4.51 [facility] Basophil percentageOrdered B y: Tobi Zapata on 08-08-2022 Basophils/100 WBC (Bld) 0.6 % 0-1 [facility] Eosinophils/100 WBC (Bld) 4.5 % 0-5 [facility] Neutrophils (Bld) [#/Vol] 3.7 10*3/uL 2.0-7.7 [facility] Neutrophils/100 WBC (Bld) 55.8 % 47-70 [facility] WBC (Bld) [#/Vol] 6.7 10*3/uL 4.4-11.0 [facility] Blood erythrocytes count (nu mber/volume)Ordered By: Tobi Zapata on 08-08-2022 RBC (Bld) [#/Vol] 2.52 10*6/uL 4.6-6.2 [facility] Blood hemoglobin measurement (mass/volume)Ordered By: Tobi Zapata on 08-08-2022 Hemoglobin (Bld) [Mass/Vol] 7.6 g/dL 13.0-16.5 [facility] Blood lymphocytes/100 leukoc ytesOrdered By: Tobi Zapata on 08-08-2022 Lymphocytes/100 WBC (Bld) 25.4 % 19-41 [facility] Blood monocytes/100 leukocyt esOrdered By: Tobi Zapata on 08-08-2022 Monocytes/100 WBC (Bld) 12.1 % 0-10 [facility] Blood platelet mean volumeOr dered By: Tobi Zapata on 08-08-2022 Platelet mean volume (Bld) [Entitic vol] 10.3 fL 6.2-12.0 [facility] Determination of erythrocyte mean corpuscular volume (MCV)Ordered By: Tobi Zapata on 08-08-2022 MCV (RBC) [Entitic vol] 99.2 fL 80-94 [facility] Hematocrit Auto (Bld) [Volum e fraction]Ordered By: Tobi Zapata on 08-08-2022 Hematocrit (Bld) [Volume fraction] 25.0 % 40-54 [facility] - Hematology and Cell countsOrdered By: Tobi Zapata on 08-08-2022 Erythrocyte distribution width (RBC) [Entitic vol] 54.2 fL 35.1-43.9 [facility] Erythrocyte distribution width (RBC) [Ratio] 15.0 % 11.6-14.6 [facility] Immature granulocytes/100 WBC (Bld) 1.600 % 0.0-0.9 [facility] Comment on above: IG% - Immature Granu locytes (promyelocytes, myelocytes and metamyelocytes) > 1% indicates that a LEFT SHIFT is Present. MCH (RBC) [Entitic mass] 30.2 pg 27.0-32.0 [facility] Nucleated RBC/100 WBC (Bld) [Ratio] 0.3 % 0-5 [facility] MCHC Auto (RBC) [Mass/Vol]Or dered By: Tobi Zapata on 08-08-2022 MCHC (RBC) [Mass/Vol] 30.4 g/dL 32-36 [facility] Platelets bldOrdered By: Mikael Zapata on 08-08-2022 Platelets (Bld) [#/Vol] 210 10*3/uL 150-450 [facility] Lower GI hemoglobin IA Ql (S tl)Ordered By: Tobi Zapata on 07-29-2022 Stool Occult Blood (FOREST) Positive [facility] Stool gastrointestinal hemoglobin detection by immunologic method Positive Abnormal [facility] Stool gastrointestinal hemog lobin detection by immunologic methodOrdered By: Tobi Zapata on 07-29-2022 Lower GI hemoglobin IA Ql (Stl) Positive Abnormal [facility] Basophil percentageOrdered B y: Tobi Zapata on 07-23-2022 Bilirubin [Mass/Vol] 0.30 mg/dL 0.20-1.00 [facility] Comment on above: For patients on eltr ombopag therapy, use of Dimension Converse TBIL is not recommended. Chloride [Moles/Vol] 115 mmol/L 98-107 [facility] Glucose [Mass/Vol] 323 mg/dL 74-106 [facility] Comment on above: Glucose result great er than or equal to 200 mg/dLsuggests DIABETES MELLITUS per A.D.A. criteria. LDH [Catalytic activity/Vol] 170 U/L 87-241 [facility] Potassium [Moles/Vol] 5.7 mmol/L 3.5-5.1 [facility] Protein [Mass/Vol] 6.2 g/dL 6.4-8.2 [facility] Sodium [Moles/Vol] 142 mmol/L 136-145 [facility] Iron measurement (mass/mass) Ordered By: Tobi Zapata on 07-23-2022 Iron (Unsp spec) [Mass/Mass] 70 ug/dL 65-175 [facility] - Chemistry and C hemistry - challengeOrdered By: Tobi Zapata on 07-23-2022 ALP [Catalytic activity/Vol] 90 U/L 45-117 [facility] ALT [Catalytic activity/Vol] 19 U/L 16-61 [facility] CO2 [Moles/Vol] 20.0 mmol/L 21.0-32.0 [facility] Globulin (S) [Mass/Vol] 3.0 g/dL 2.2-4.2 [facility] Urea nitrogen/Creatinine [Mass ratio] 30.8 mg/mg 10-20 [facility] No Panel InformationOrdered By: Tobi Zapata on 07-23-2022 Estimated Creatinine Clearance Calc 48.71 ml/min [facility] Estimated GFR (MDRD) Amer 61 mL/min >60 [facility] Comment on above: GFR Calc Estimated GFR (MDRD) Non-Af Amer 50 mL/min >60 [facility] Comment on above: Non- GFR Calc Total Iron Binding Capacity 239 ug/dL 250-450 [facility] Serum or plasma albumin yocasta urement (mass/volume)Ordered By: Tobi Zapata on 07-23-2022 Albumin [Mass/Vol] 3.2 g/dL 3.2-5.0 [facility] Serum or plasma albumin/glob ulin mass ratioOrdered By: Tobi Zapata on 07-23-2022 Albumin/Globulin [Mass ratio] 1.1 {ratio} 0.9-2.4 [facility] Serum or plasma calcium yocasta urement (mass/volume)Ordered By: Tobi Zapata on 07-23-2022 Calcium [Mass/Vol] 8.1 mg/dL 8.5-10.1 [facility] Serum or plasma creatinine m easurement (mass/volume)Ordered By: Tobi Zapata on 07-23-2022 Creatinine [Mass/Vol] 1.46 mg/dL 0.70-1.30 [facility] Comment on above: The validity of the calculated GFR & GFRAA in patients over 70 years has not been determined. Clinical correlation is essential. Serum or plasma ferritin vasquez surement (mass/volume)Ordered By: Tobi Zapata on 07-23-2022 Ferritin [Mass/Vol] 98 ng/mL 26-388 [facility] Serum or plasma iron saturat ion measurement (mass fraction)Ordered By: Tobi Zapata on 07-23-2022 Iron saturation [Mass fraction] 29.3 % 15.0-55.0 [facility] Serum or plasma urea nitroge n measurement (mass/volume)Ordered By: Tobi Zapata on 07-23-2022 Urea nitrogen [Mass/Vol] 45 mg/dL 7-18 [facility] Thin prep Papanicolaou smear with manual screeningOrdered By: Tobi Zapata on 07-23-2022 Thin prep Papanicolaou smear with manual screening 13 U/L 15-37 [facility] Thin prep Papanicolaou smear with manual screening 7 5-15 [facility] Basophil percentageOrdered B y: Nate Bearden on 07-09-2022 Creatinine [Mass/Vol] 1.4 mg/dL 0.70-1.30 [facility] Laboratory - Chemistry and C hemistry - challengeOrdered By: Nate Bearden on 07-09-2022 GFR/1.73 sq M.predicted among non-blacks MDRD (S/P/Bld) [Vol rate/Area] 53.0000 mL/min/{1.73_m2} >60 [facility] Blood hemoglobin measurement (mass/volume)Ordered By: Khai Galeana on 06-19-2022 Hemoglobin (Bld) [Mass/Vol] 9.7 g/dL 13.0-16.5 [facility] Hematocrit Auto (Bld) [Volum e fraction]Ordered By: Khai Galeana on 06-19-2022 Hematocrit (Bld) [Volume fraction] 31.7 % 40-54 [facility] Iron measurement (mass/mass) Ordered By: Khai Galeana on 06-19-2022 Iron (Unsp spec) [Mass/Mass] 115 ug/dL 65-175 [facility] No Panel InformationOrdered By: Khai Galeana on 06-19-2022 Prostate Specific Antigen Screen 1.24 ng/mL 0.00-4.00 [facility] Comment on above: This test was perfor med using the TPSA assay method for [employer] chemistry system. Values obtained with differentassay methods cannot be used interchangably.When changing PSA assays in the course of monitoring apatient, additional sequential testing should be carriedout to confirm baseline values. Total Iron Binding Capacity 257 ug/dL 250-450 [facility] Serum or plasma ferritin vasquez surement (mass/volume)Ordered By: Khai Galeana on 06-19-2022 Ferritin [Mass/Vol] 283 ng/mL 26-388 [facility] Serum or plasma iron saturat ion measurement (mass fraction)Ordered By: Khai Galeana on 06-19-2022 Iron saturation [Mass fraction] 44.7 % 15.0-55.0 [facility] Stool gastrointestinal hemog lobin detection by immunologic methodOrdered By: Tobi Zapata on 05-03-2022 Lower GI hemoglobin IA Ql (Stl) [facility] Stool gastrointestinal hemog lobin detection by immunologic methodOrdered By: Dr. Zapata on 05-03-2022 Lower GI hemoglobin IA Ql (Stl) [facility] Absolute lymphocyte countOrd ered By: Dr. Zapata on 04-29-2022 Lymphocytes Auto (Unsp spec) [#/Vol] 3.43 10*3/uL 0.83-4.51 [facility] Basophil percentageOrdered B y: Dr. Zapata on 04-29-2022 Basophils/100 WBC (Bld) 0.6 % 0-1 [facility] Bilirubin [Mass/Vol] 0.30 mg/dL 0.20-1.00 [facility] Comment on above: For patients on eltr ombopag therapy, use of Dimension Converse TBIL is not recommended. Chloride [Moles/Vol] 109 mmol/L 98-107 [facility] Eosinophils/100 WBC (Bld) 4.5 % 0-5 [facility] Glucose [Mass/Vol] 209 mg/dL 74-106 [facility] Comment on above: Glucose result great er than or equal to 200 mg/dLsuggests DIABETES MELLITUS per A.D.A. criteria. LDH [Catalytic activity/Vol] 223 U/L 87-241 [facility] Neutrophils (Bld) [#/Vol] 5.4 10*3/uL 2.0-7.7 [facility] Neutrophils/100 WBC (Bld) 49.7 % 47-70 [facility] Potassium [Moles/Vol] 4.5 mmol/L 3.5-5.1 [facility] Protein [Mass/Vol] 7.4 g/dL 6.4-8.2 [facility] Sodium [Moles/Vol] 141 mmol/L 136-145 [facility] WBC (Bld) [#/Vol] 10.8 10*3/uL 4.4-11.0 [facility] Blood erythrocytes count (nu mber/volume)Ordered By: Dr. Zapata on 04-29-2022 RBC (Bld) [#/Vol] 2.87 10*6/uL 4.6-6.2 [facility] Blood hemoglobin measurement (mass/volume)Ordered By: Dr. Zapata on 04-29-2022 Hemoglobin (Bld) [Mass/Vol] 8.5 g/dL 13.0-16.5 [facility] Blood lymphocytes/100 leukoc ytesOrdered By: Dr. Zapata on 04-29-2022 Lymphocytes/100 WBC (Bld) 31.8 % 19-41 [facility] Blood monocytes/100 leukocyt esOrdered By: Dr. Zapata on 04-29-2022 Monocytes/100 WBC (Bld) 11.9 % 0-10 [facility] Blood platelet mean volumeOr dered By: Dr. Zapata on 04-29-2022 Platelet mean volume (Bld) [Entitic vol] 9.6 fL 6.2-12.0 [facility] Determination of erythrocyte mean corpuscular volume (MCV)Ordered By: Dr. Zapata on 04-29-2022 MCV (RBC) [Entitic vol] 92.0 fL 80-94 [facility] Hematocrit Auto (Bld) [Volum e fraction]Ordered By: Dr. Zapata on 04-29-2022 Hematocrit (Bld) [Volume fraction] 26.4 % 40-54 [facility] Hemoglobin in reticulocytes (mass per reticulocyte)Ordered By: Dr. Zapata on 04-29-2022 Hemoglobin (Reticulocytes) [Entitic mass] 27.7 pg 30-35 [facility] Iron measurement (mass/mass) Ordered By: Dr. Zapata on 04-29-2022 Iron (Unsp spec) [Mass/Mass] 38 ug/dL 65-175 [facility] - Chemistry and C hemistry - challengeOrdered By: Dr. Zapata on 04-29-2022 ALP [Catalytic activity/Vol] 82 U/L 45-117 [facility] ALT [Catalytic activity/Vol] 15 U/L 16-61 [facility] CO2 [Moles/Vol] 24.0 mmol/L 21.0-32.0 [facility] Globulin (S) [Mass/Vol] 4.2 g/dL 2.2-4.2 [facility] Urea nitrogen/Creatinine [Mass ratio] 22.9 mg/mg 10-20 [facility] - Hematology and Cell countsOrdered By: Dr. Zapata on 04-29-2022 Erythrocyte distribution width (RBC) [Entitic vol] 48.0 fL 35.1-43.9 [facility] Erythrocyte distribution width (RBC) [Ratio] 14.3 % 11.6-14.6 [facility] Immature granulocytes/100 WBC (Bld) 1.500 % 0.0-0.9 [facility] Comment on above: IG% - Immature Granu locytes (promyelocytes, myelocytes and metamyelocytes) > 1% indicates that a LEFT SHIFT is Present. MCH (RBC) [Entitic mass] 29.6 pg 27.0-32.0 [facility] Nucleated RBC/100 WBC (Bld) [Ratio] 0 % 0-5 [facility] Auto (RBC) [Mass/Vol]Or dered By: Dr. Zapata on 04-29-2022 MCHC (RBC) [Mass/Vol] 32.2 g/dL 32-36 [facility] No Panel InformationOrdered By: Dr. Zapata on 04-29-2022 Estimated Creatinine Clearance Calc 54.29 ml/min [facility] Estimated GFR (MDRD) Amer 69 mL/min >60 [facility] Comment on above: GFR Calc Estimated GFR (MDRD) Non-Af Amer 57 mL/min >60 [facility] Comment on above: Non- GFR Calc Immature Reticulocyte Fraction 31.80 % 3.00-15.90 [facility] Reticulocyte Count 2.75 % 0.5-1.5 [facility] Total Iron Binding Capacity 256 ug/dL 250-450 [facility] No Panel InformationOrdered By: Tobi Zapata on 04-29-2022 2.75 % 0.5-1.5 [facility] 31.80 % 3.00-15.90 [facility] Platelets bldOrdered By: Dr. Zapata on 04-29-2022 Platelets (Bld) [#/Vol] 398 10*3/uL 150-450 [facility] Serum or plasma albumin yocasta urement (mass/volume)Ordered By: Dr. Zapata on 04-29-2022 Albumin [Mass/Vol] 3.2 g/dL 3.2-5.0 [facility] Serum or plasma albumin/glob ulin mass ratioOrdered By: Dr. Zapata on 04-29-2022 Albumin/Globulin [Mass ratio] 0.8 {ratio} 0.9-2.4 [facility] Serum or plasma calcium yocasta urement (mass/volume)Ordered By: Dr. Zapata on 04-29-2022 Calcium [Mass/Vol] 9.3 mg/dL 8.5-10.1 [facility] Serum or plasma creatinine m easurement (mass/volume)Ordered By: Dr. Zapata on 04-29-2022 Creatinine [Mass/Vol] 1.31 mg/dL 0.70-1.30 [facility] Comment on above: The validity of the calculated GFR & GFRAA in patients over 70 years has not been determined. Clinical correlation is essential. Serum or plasma ferritin vasquez surement (mass/volume)Ordered By: Dr. Zapata on 04-29-2022 Ferritin [Mass/Vol] 203 ng/mL 26-388 [facility] Serum or plasma iron saturat ion measurement (mass fraction)Ordered By: Dr. Zapata on 04-29-2022 Iron saturation [Mass fraction] 14.8 % 15.0-55.0 [facility] Serum or plasma urea nitroge n measurement (mass/volume)Ordered By: Dr. Zapata on 04-29-2022 Urea nitrogen [Mass/Vol] 30 mg/dL 7-18 [facility] Thin prep Papanicolaou smear with manual screeningOrdered By: Dr. Zapata on 04-29-2022 Thin prep Papanicolaou smear with manual screening 9 U/L 15-37 [facility] Thin prep Papanicolaou smear with manual screening 8 5-15 [facility] Basophil percentageOrdered B y: OLEG PIÑA on 03-09-2022 Basophils (Bld) [#/Vol] 5.6 10*3/uL 4.4-11.0 [facility] WBC (Bld) [#/Vol] 5.6 10*3/uL 4.4-11.0 [facility] Blood erythrocytes count (nu mber/volume)Ordered By: OLEG PIÑA on 03-09-2022 RBC (Bld) [#/Vol] 3.47 10*6/uL 4.6-6.2 [facility] Blood hemoglobin measurement (mass/volume)Ordered By: OLEG PIÑA on 03-09-2022 Hemoglobin (Bld) [Mass/Vol] 9.6 g/dL 13.0-16.5 [facility] Blood platelet mean volumeOr dered By: OLEG PÑIA on 03-09-2022 Platelet mean volume (Bld) [Entitic vol] 10.8 fL 6.2-12.0 [facility] Determination of erythrocyte mean corpuscular volume (MCV)Ordered By: OLEG PIÑA on 03-09-2022 MCV (RBC) [Entitic vol] 88.2 fL 80-94 [facility] Hematocrit Auto (Bld) [Volum e fraction]Ordered By: OLEG PIÑA on 03-09-2022 Hematocrit (Bld) [Volume fraction] 30.6 % 40-54 [facility] - Hematology and Cell countsOrdered By: OLEG PIÑA on 03-09-2022 Erythrocyte distribution width (RBC) [Entitic vol] 49.5 fL 35.1-43.9 [facility] Erythrocyte distribution width (RBC) [Ratio] 15.5 % 11.6-14.6 [facility] MCH (RBC) [Entitic mass] 27.7 pg 27.0-32.0 [facility] MCHC Auto (RBC) [Mass/Vol]Or dered By: OLEG PIÑA on 03-09-2022 MCHC (RBC) [Mass/Vol] 31.4 g/dL 32-36 [facility] No Panel InformationOrdered By: OLEG PIÑA on 03-09-2022 27.7 pg 27.0-32.0 [facility] 15.5 % 11.6-14.6 [facility] 49.5 fl 35.1-43.9 [facility] Platelets bldOrdered By: EDWARD NEWSOME on 03-09-2022 Platelets (Bld) [#/Vol] 265 10*3/uL 150-450 [facility] - Microbiology an d Antimicrobial susceptibilityOrdered By: Dr. Walker on 02-20-2022 Bacteria identified Cx Nom (Bld) No growth in 5 days. [facility] No Panel InformationOrdered By: Dr. Walker on 02-20-2022 No growth in 5 days. [facility] Bacteria identified Cx Nom ( U)Ordered By: Dr. Walker on 02-16-2022 Culture, urine Positive [facility] Culture, urineOrdered By: Dr Juan Walker on 02-16-2022 Bacteria identified Cx Nom (U) Positive [facility] - Microbiology an d Antimicrobial susceptibilityOrdered By: Dr. Rosas on 02-16-2022 Respiratory pathogens DNA and RNA 12b panel JUSTIN+probe (Unsp spec) [facility] Absolute lymphocyte countOrd ered By: Dr. Shannon on 02-15-2022 Lymphocytes Auto (Unsp spec) [#/Vol] 2.99 10*3/uL 0.83-4.51 [facility] Basophil percentageOrdered B y: Dr. Shannon on 02-15-2022 Basophil percentage 161 mg/dL 74-106 [facility] Basophil percentage 139 mmol/L 136-145 [facility] Basophil percentage 4.1 mmol/L 3.5-5.1 [facility] Basophil percentage 107 mmol/L 98-107 [facility] Basophils (Bld) [#/Vol] 11.1 10*3/uL 4.4-11.0 [facility] Basophils (Bld) [#/Vol] 6.1 10*3/uL 2.0-7.7 [facility] Basophils/100 WBC (Bld) 0.6 % 0-1 [facility] Basophils/100 WBC (Bld) 54.4 % 47-70 [facility] Basophils/100 WBC (Bld) 3.0 % 0-5 [facility] Chloride [Moles/Vol] 107 mmol/L 98-107 [facility] Eosinophils/100 WBC (Bld) 3.0 % 0-5 [facility] Glucose [Mass/Vol] 161 mg/dL 74-106 [facility] Comment on above: Fasting Glucose resu lt greater than or equal to 126 mg/dL suggests DIABETES MELLITUS per A.D.A. criteria. Neutrophils (Bld) [#/Vol] 6.1 10*3/uL 2.0-7.7 [facility] Neutrophils/100 WBC (Bld) 54.4 % 47-70 [facility] Potassium [Moles/Vol] 4.1 mmol/L 3.5-5.1 [facility] Sodium [Moles/Vol] 139 mmol/L 136-145 [facility] WBC (Bld) [#/Vol] 11.1 10*3/uL 4.4-11.0 [facility] Blood erythrocytes count (nu mber/volume)Ordered By: Dr. Shannon on 02-15-2022 RBC (Bld) [#/Vol] 3.68 10*6/uL 4.6-6.2 [facility] Blood hemoglobin measurement (mass/volume)Ordered By: Dr. Shannon on 02-15-2022 Hemoglobin (Bld) [Mass/Vol] 10.5 g/dL 13.0-16.5 [facility] Blood lymphocytes/100 leukoc ytesOrdered By: Dr. Shannon on 02-15-2022 Lymphocytes/100 WBC (Bld) 26.8 % 19-41 [facility] Blood manual differential co mment interpretation (narrative result)Ordered By: Dr. Shannon on 02-15-2022 Manual differential comment Sohan (Bld) [Interp] SCANNED [facility] Blood monocytes/100 leukocyt esOrdered By: Dr. Shannon on 02-15-2022 Monocytes/100 WBC (Bld) 14.3 % 0-10 [facility] Blood platelet mean volumeOr dered By: Dr. Shannon on 02-15-2022 Platelet mean volume (Bld) [Entitic vol] 10.6 fL 6.2-12.0 [facility] Determination of erythrocyte mean corpuscular volume (MCV)Ordered By: Dr. Shannon on 02-15-2022 MCV (RBC) [Entitic vol] 89.1 fL 80-94 [facility] Hematocrit Auto (Bld) [Volum e fraction]Ordered By: Dr. Shannon on 02-15-2022 Hematocrit (Bld) [Volume fraction] 32.8 % 40-54 [facility] - Chemistry and C hemistry - challengeOrdered By: Dr. Shannon on 02-15-2022 CO2 [Moles/Vol] 25.0 mmol/L 21.0-32.0 [facility] Urea nitrogen/Creatinine [Mass ratio] 25.8 mg/mg 10-20 [facility] - Hematology and Cell countsOrdered By: Dr. Shannon on 02-15-2022 Erythrocyte distribution width (RBC) [Entitic vol] 49.6 fL 35.1-43.9 [facility] Erythrocyte distribution width (RBC) [Ratio] 15.2 % 11.6-14.6 [facility] Immature granulocytes/100 WBC (Bld) 0.900 % 0.0-0.9 [facility] Comment on above: IG% - Immature Granu locytes (promyelocytes, myelocytes and metamyelocytes) > 1% indicates that a LEFT SHIFT is Present. MCH (RBC) [Entitic mass] 28.5 pg 27.0-32.0 [facility] Nucleated RBC/100 WBC (Bld) [Ratio] 0 % 0-5 [facility] MCHC Auto (RBC) [Mass/Vol]Or dered By: Dr. Shannon on 02-15-2022 MCHC (RBC) [Mass/Vol] 32.0 g/dL 32-36 [facility] No Panel InformationOrdered By: Dr. Shannon on 02-15-2022 Methicillin-Resist S.aureus DNA PCR Negative Negative [facility] Negative Negative [facility] Estimated Creatinine Clearance Calc 53.88 ml/min [facility] Estimated GFR (MDRD) Amer 69 mL/min >60 [facility] Comment on above: GFR Calc Estimated GFR (MDRD) Non-Af Amer 57 mL/min >60 [facility] Comment on above: Non- GFR Calc 28.5 pg 27.0-32.0 [facility] 15.2 % 11.6-14.6 [facility] 49.6 fl 35.1-43.9 [facility] 0.900 % 0.0-0.9 [facility] 0 % 0-5 [facility] 57 mL/min >60 [facility] 69 mL/min >60 [facility] 53.88 ml/min [facility] 25.8 RATIO 10-20 [facility] 25.0 mmol/L 21.0-32.0 [facility] Platelets bldOrdered By: Dr. Shannon on 02-15-2022 Platelets (Bld) [#/Vol] 357 10*3/uL 150-450 [facility] Review by pathologistOrdered By: Dr. Shannon on 02-15-2022 Pathologist review Sohan (Unsp spec) [Interp] Reviewed [facility] [facility] Comment on above: Previous reported re sult: Josephine hair Edited by: RGOOD on 02/15/22:1411Leukocytosis. Normocytic anemia.Clinical correlation necessary.Mc Urias M.D. 02/15/22 AMENDED REPORT 02/15/22 1412 PATH REV previously reported as: May foll Serum or plasma calcium yocasta urement (mass/volume)Ordered By: Dr. Shannon on 02-15-2022 Calcium [Mass/Vol] 9.3 mg/dL 8.5-10.1 [facility] Serum or plasma creatinine m easurement (mass/volume)Ordered By: Dr. Shannon on 02-15-2022 Creatinine [Mass/Vol] 1.32 mg/dL 0.70-1.30 [facility] Comment on above: The validity of the calculated GFR & GFRAA in patients over 70 years has not been determined. Clinical correlation is essential. Serum or plasma urea nitroge n measurement (mass/volume)Ordered By: Dr. Shannon on 02-15-2022 Urea nitrogen [Mass/Vol] 34 mg/dL 7-18 [facility] Thin prep Papanicolaou smear with manual screeningOrdered By: Dr. Shannon on 02-15-2022 Thin prep Papanicolaou smear with manual screening 7 5- [facility] Absolute lymphocyte counton 02-14-2022 Lymphocytes Auto (Unsp spec) [#/Vol] 1.28 10*3/uL 0.83-4.51 [facility] Work Phone: Amorphous sediment detection in urine sediment by light microscopyOrdered By: Dr. Walker on 02-14-2022 Amorphous sediment LM Ql (Urine sed) 1+ URATE [facility] Basophil percentageOrdered B y: Dr. Walker on 02-14-2022 Basophil percentage 50-100 SEEN /hpf 0-5 [facility] Basophil percentage 1.0 mmol/L 0.4-2.0 [facility] Lactate [Moles/Vol] 1.0 mmol/L 0.4-2.0 [facility] Basophil percentageon 2021 Basophils/100 WBC (Bld) 0.5 % 0-1 [facility] Work Phone: Chloride [Moles/Vol] 109 mmol/L 98-107 [facility] Work Phone: Eosinophils/100 WBC (Bld) 1.4 % 0-5 [facility] Work Phone: Glucose [Mass/Vol] 217 mg/dL 74-106 [facility] Work Phone: Comment on above: Glucose result great er than or equal to 200 mg/dLsuggests DIABETES MELLITUS per A.D.A. criteria. Neutrophils (Bld) [#/Vol] 7.6 10*3/uL 2.0-7.7 [facility] Work Phone: [phone] Neutrophils/100 WBC (Bld) 72.2 % 47-70 [facility] Work Phone: Potassium [Moles/Vol] 5.1 mmol/L 3.5-5.1 [facility] Work Phone: Sodium [Moles/Vol] 138 mmol/L 136-145 [facility] Work Phone: WBC (Bld) [#/Vol] 10.6 10*3/uL 4.4-11.0 [facility] Work Phone: Bilirubin Test strip Ql (U)O rdered By: Dr. Walker on 02-14-2022 Bilirubin Ql (U) Negative Negative [facility] Blood erythrocytes count (nu mber/volume)on 02-14-2022 RBC (Bld) [#/Vol] 3.59 10*6/uL 4.6-6.2 [facility] Work Phone: Blood hemoglobin measurement (mass/volume)on 02-14-2022 Hemoglobin (Bld) [Mass/Vol] 10.1 g/dL 13.0-16.5 [facility] Work Phone: Blood lymphocytes/100 leukoc yteson 02-14-2022 Lymphocytes/100 WBC (Bld) 12.1 % 19-41 [facility] Work Phone: [phone] Blood monocytes/100 leukocyt eson 02-14-2022 Monocytes/100 WBC (Bld) 13.2 % 0-10 [facility] Work Phone: Blood platelet mean volumeon 02-14-2022 Platelet mean volume (Bld) [Entitic vol] 10.0 fL 6.2-12.0 [facility] Work Phone: Determination of erythrocyte mean corpuscular volume (MCV)on 02-14-2022 MCV (RBC) [Entitic vol] 89.1 fL 80-94 [facility] Work Phone: Hematocrit Auto (Bld) [Volum e fraction]on 02-14-2022 Hematocrit (Bld) [Volume fraction] 32.0 % 40-54 [facility] Work Phone: Ketones Test strip Ql (U)Ord ered By: Dr. Walker on 02-14-2022 Ketones Ql (U) Negative Negative [facility] Laboratory - Chemistry and C hemistry - challengeon 02-14-2022 CO2 [Moles/Vol] 25.0 mmol/L 21.0-32.0 [facility] Work Phone: Urea nitrogen/Creatinine [Mass ratio] 27.1 mg/mg 10-20 [facility] Work Phone: Laboratory - Chemistry and C hemistry - challengeOrdered By: Dr. Walker on 02-14-2022 Natriuretic peptide B (Bld) [Mass/Vol] 204.9 pg/mL 0-100 [facility] Laboratory - Hematology and Cell countson 02-14-2022 Erythrocyte distribution width (RBC) [Entitic vol] 50.8 fL 35.1-43.9 [facility] Work Phone: Erythrocyte distribution width (RBC) [Ratio] 15.5 % 11.6-14.6 [facility] Work Phone: Immature granulocytes/100 WBC (Bld) 0.600 % 0.0-0.9 [facility] Work Phone: Comment on above: IG% - Immature Granu locytes (promyelocytes, myelocytes and metamyelocytes) > 1% indicates that a LEFT SHIFT is Present. MCH (RBC) [Entitic mass] 28.1 pg 27.0-32.0 [facility] Work Phone: Nucleated RBC/100 WBC (Bld) [Ratio] 0 % 0-5 [facility] Work Phone: MCHC Auto (RBC) [Mass/Vol]on 02-14-2022 MCHC (RBC) [Mass/Vol] 31.6 g/dL 32-36 [facility] Work Phone: Mucus LM Ql (Urine sed)Order ed By: Dr. Walker on 02-14-2022 Mucus Ql (Urine sed) 0 SEEN /hpf [facility] Nitrite Test strip Ql (U)Ord ered By: Dr. Walker on 02-14-2022 Nitrite Ql (U) Negative Negative [facility] No Panel InformationOrdered By: Dr. Walker on 02-14-2022 D-Dimer Quantitative (PE/DVT) 1.88 FEU/ug/m 0.27-0.49 [facility] Comment on above: D-Dimer ELEVATED (>0 .49): Additional studies and clinicalassessments are indicated to conclude diagnosis of:Deep Vein Thrombosis (DVT) or Pulmonary Embolism (PE)CRITICAL VALUE VERIFIED. [facility]14[facility]22 [facility]4 Claire Nair.RESULTS READ BACK BY SAME . Troponin I High Sensitivity 12 pg/mL 3.0-78.0 [facility] Comment on above: Please Note: New Jennifer t Units and Gender Specific Reference Ranges. For more information see Policy Stat Procedure [place]verse High Sensitivity Troponin (TNIH) and attachments. 1.88 FEU/ug/m 0.27-0.49 [facility] 12 pg/mL 3.0-78.0 [facility] 204.9 pg/mL 0-100 [facility] No Panel Informationon 02-14 Estimated Creatinine Clearance Calc 49.39 ml/min [facility] Work Phone: Estimated GFR (MDRD) Amer 62 mL/min >60 [facility] Work Phone: Comment on above: GFR Calc Estimated GFR (MDRD) Non-Af Amer 51 mL/min >60 [facility] Work Phone: Comment on above: Non- GFR Calc Platelets bldon 02-14-2022 Platelets (Bld) [#/Vol] 295 10*3/uL 150-450 [facility] Work Phone: Protein Test strip Ql (U)Ord ered By: Dr. Walker on 02-14-2022 Protein Ql (U) 30 mg/dl Negative [facility] Serum or plasma calcium yocasta urement (mass/volume)on 02-14-2022 Calcium [Mass/Vol] 9.3 mg/dL 8.5-10.1 [facility] Work Phone: Serum or plasma creatinine m easurement (mass/volume)on 02-14-2022 Creatinine [Mass/Vol] 1.44 mg/dL 0.70-1.30 [facility] Work Phone: Comment on above: The validity of the calculated GFR & GFRAA in patients over 70 years has not been determined. Clinical correlation is essential. Serum or plasma urea nitroge n measurement (mass/volume)on 02-14-2022 Urea nitrogen [Mass/Vol] 39 mg/dL 7-18 [facility] Work Phone: Squamous epithelial cells de tection in urine sediment by light microscopyOrdered By: Dr. Walker on 02-14-2022 Epithelial cells.squamous LM Ql (Urine sed) 0-5 SEEN /hpf 0-5 [facility] Thin prep Papanicolaou smear with manual screeningon 02-14-2022 Thin prep Papanicolaou smear with manual screening 4 5-15 [facility] Work Phone: Urine blood detectionOrdered By: Dr. Walker on 02-14-2022 RBC Ql (U) 25 /ul Negative [facility] RBC Ql (U) 5-10 SEEN /hpf 0-5 [facility] Urine clarityOrdered By: Dr. Walker on 02-14-2022 Clarity (U) Sl. Cloudy Clear [facility] Urine color determinationOrd ered By: Dr. Walker on 02-14-2022 Color (U) Yellow Yellow [facility] Urine glucose detectionOrder ed By: Dr. Walker on 02-14-2022 Glucose Ql (U) Normal mg/dl Normal [facility] Urine leukocyte esterase det ection by dipstickOrdered By: Dr. Walker on 02-14-2022 Leukocyte esterase Test strip Ql (U) 500 /ul Negative [facility] Urine pHOrdered By: Dr. Cindy ryan on 02-14-2022 pH (U) 5.0 [pH] 5.0 - 8.0 [facility] Urine sediment bacteria coun t by microscopy (number/high power field)Ordered By: Dr. Walker on 02-14-2022 Bacteria LM.HPF (Urine sed) [#/Area] RARE /hpf None Seen [facility] Urine specific gravity measu rementOrdered By: Dr. Walker on 02-14-2022 Specific gravity (U) [Rel density] 1.015 1.002-1.030 [facility] Urobilinogen Auto test strip Ql (U)Ordered By: Dr. Walker on 02-14-2022 Urobilinogen Ql (U) Normal mg/dl Normal [facility] Basophil percentageOrdered B y: OLEG PIÑA on 02-06-2022 Basophils (Bld) [#/Vol] 9.4 10*3/uL 4.4-11.0 [facility] WBC (Bld) [#/Vol] 9.4 10*3/uL 4.4-11.0 [facility] Blood erythrocytes count (nu mber/volume)Ordered By: OLEG PIÑA on 02-06-2022 RBC (Bld) [#/Vol] 3.50 10*6/uL 4.6-6.2 [facility] Blood hemoglobin measurement (mass/volume)Ordered By: OLEG PIÑA on 02-06-2022 Hemoglobin (Bld) [Mass/Vol] 10.0 g/dL 13.0-16.5 [facility] Blood platelet mean volumeOr dered By: OLEG PIÑA on 02-06-2022 Platelet mean volume (Bld) [Entitic vol] 10.9 fL 6.2-12.0 [facility] Determination of erythrocyte mean corpuscular volume (MCV)Ordered By: OLEG PIÑA on 02-06-2022 MCV (RBC) [Entitic vol] 89.7 fL 80-94 [facility] Hematocrit Auto (Bld) [Volum e fraction]Ordered By: OLEG PIÑA on 02-06-2022 Hematocrit (Bld) [Volume fraction] 31.4 % 40-54 [facility] Laboratory - Hematology and Cell countsOrdered By: OLEG PIÑA on 02-06-2022 Erythrocyte distribution width (RBC) [Entitic vol] 52.0 fL 35.1-43.9 [facility] Erythrocyte distribution width (RBC) [Ratio] 16.0 % 11.6-14.6 [facility] MCH (RBC) [Entitic mass] 28.6 pg 27.0-32.0 [facility] MCHC Auto (RBC) [Mass/Vol]Or dered By: OLEG PIÑA on 02-06-2022 MCHC (RBC) [Mass/Vol] 31.8 g/dL 32-36 [facility] No Panel InformationOrdered By: OLEG PIÑA on 02-06-2022 28.6 pg 27.0-32.0 [facility] 16.0 % 11.6-14.6 [facility] 52.0 fl 35.1-43.9 [facility] Platelets bldOrdered By: EDWARD NEWSOME on 02-06-2022 Platelets (Bld) [#/Vol] 325 10*3/uL 150-450 [facility] Absolute lymphocyte countOrd ered By: Dr. Zapata on 02-05-2022 Lymphocytes Auto (Unsp spec) [#/Vol] 3.30 10*3/uL 0.83-4.51 [facility] Basophil percentageOrdered B y: Dr. Zapata on 02-05-2022 Basophil percentage 196 mg/dL 74-106 [facility] Basophil percentage 6.8 g/dL 6.4-8.2 [facility] Basophil percentage 0.50 mg/dL 0.20-1.00 [facility] Basophil percentage 141 mmol/L 136-145 [facility] Basophil percentage 4.3 mmol/L 3.5-5.1 [facility] Basophil percentage 109 mmol/L 98-107 [facility] Basophils (Bld) [#/Vol] 11.4 10*3/uL 4.4-11.0 [facility] Basophils (Bld) [#/Vol] 5.4 10*3/uL 2.0-7.7 [facility] Basophils/100 WBC (Bld) 0.6 % 0-1 [facility] Basophils/100 WBC (Bld) 47.0 % 47-70 [facility] Basophils/100 WBC (Bld) 11.9 % 0-5 [facility] Basophil percentageon 2021 Bilirubin [Mass/Vol] 0.50 mg/dL 0.20-1.00 [facility] Work Phone: Comment on above: For patients on eltr ombopag therapy, use of Dimension Converse TBIL is not recommended. Chloride [Moles/Vol] 109 mmol/L 98-107 [facility] Work Phone: Eosinophils/100 WBC (Bld) 11.9 % 0-5 [facility] Work Phone: Glucose [Mass/Vol] 196 mg/dL 74-106 [facility] Work Phone: Comment on above: Fasting Glucose resu lt greater than or equal to 126 mg/dL suggests DIABETES MELLITUS per A.D.A. criteria. Neutrophils (Bld) [#/Vol] 5.4 10*3/uL 2.0-7.7 [facility] Work Phone: Neutrophils/100 WBC (Bld) 47.0 % 47-70 [facility] Work Phone: Potassium [Moles/Vol] 4.3 mmol/L 3.5-5.1 [facility] Work Phone: Protein [Mass/Vol] 6.8 g/dL 6.4-8.2 [facility] Work Phone: Sodium [Moles/Vol] 141 mmol/L 136-145 [facility] Work Phone: WBC (Bld) [#/Vol] 11.4 10*3/uL 4.4-11.0 [facility] Work Phone: Blood erythrocytes count (nu mber/volume)Ordered By: Dr. Zapata on 02-05-2022 RBC (Bld) [#/Vol] 3.87 10*6/uL 4.6-6.2 [facility] Blood hemoglobin measurement (mass/volume)Ordered By: Dr. Zapata on 02-05-2022 Hemoglobin (Bld) [Mass/Vol] 10.8 g/dL 13.0-16.5 [facility] Blood lymphocytes/100 leukoc ytesOrdered By: Dr. Zapata on 02-05-2022 Lymphocytes/100 WBC (Bld) 28.9 % 19-41 [facility] Blood monocytes/100 leukocyt esOrdered By: Dr. Zapata on 02-05-2022 Monocytes/100 WBC (Bld) 10.5 % 0-10 [facility] Blood platelet mean volumeOr dered By: Dr. Zapata on 02-05-2022 Platelet mean volume (Bld) [Entitic vol] 9.8 fL 6.2-12.0 [facility] Determination of erythrocyte mean corpuscular volume (MCV)Ordered By: Dr. Zapata on 02-05-2022 MCV (RBC) [Entitic vol] 90.2 fL 80-94 [facility] Hematocrit Auto (Bld) [Volum e fraction]Ordered By: Dr. Zapata on 02-05-2022 Hematocrit (Bld) [Volume fraction] 34.9 % 40-54 [facility] Iron measurement (mass/mass) Ordered By: Dr. Zapata on 02-05-2022 Iron (Unsp spec) [Mass/Mass] 88 ug/dL 65-175 [facility] Laboratory - Chemistry and C hemistry - challengeon 02-05-2022 ALP [Catalytic activity/Vol] 92 U/L 45-117 [facility] Work Phone: ALT [Catalytic activity/Vol] 18 U/L 16-61 [facility] Work Phone: CO2 [Moles/Vol] 27.0 mmol/L 21.0-32.0 [facility] Work Phone: Globulin (S) [Mass/Vol] 3.3 g/dL 2.2-4.2 [facility] Work Phone: Urea nitrogen/Creatinine [Mass ratio] 23.9 mg/mg 10-20 [facility] Work Phone: Laboratory - Chemistry and C hemistry - challengeOrdered By: Dr. Zapata on 02-05-2022 Cobalamin (Vitamin B12) [Mass/Vol] 941 pg/mL 211-911 [facility] - Hematology and Cell countson 02-05-2022 Erythrocyte distribution width (RBC) [Entitic vol] 53.1 fL 35.1-43.9 [facility] Work Phone: Erythrocyte distribution width (RBC) [Ratio] 16.2 % 11.6-14.6 [facility] Work Phone: Immature granulocytes/100 WBC (Bld) 1.100 % 0.0-0.9 [facility] Work Phone: Comment on above: IG% - Immature Granu locytes (promyelocytes, myelocytes and metamyelocytes) > 1% indicates that a LEFT SHIFT is Present. MCH (RBC) [Entitic mass] 27.9 pg 27.0-32.0 [facility] Work Phone: Nucleated RBC/100 WBC (Bld) [Ratio] 0 % 0-5 [facility] Work Phone: MCHC Auto (RBC) [Mass/Vol]Or dered By: Dr. Zapata on 02-05-2022 MCHC (RBC) [Mass/Vol] 30.9 g/dL 32-36 [facility] No Panel Informationon 02-05 Estimated Creatinine Clearance Calc 53.07 ml/min [facility] Work Phone: Estimated GFR (MDRD) Amer 67 mL/min >60 [facility] Work Phone: Comment on above: GFR Calc Estimated GFR (MDRD) Non-Af Amer 56 mL/min >60 [facility] Work Phone: Comment on above: Non- GFR Calc Total Iron Binding Capacity 246 ug/dL 250-450 [facility] Work Phone: No Panel InformationOrdered By: Dr. Zapata on 02-05-2022 27.9 pg 27.0-32.0 [facility] 16.2 % 11.6-14.6 [facility] 53.1 fl 35.1-43.9 [facility] 1.100 % 0.0-0.9 [facility] 0 % 0-5 [facility] 56 mL/min >60 [facility] 67 mL/min >60 [facility] 53.07 ml/min [facility] 23.9 RATIO 10-20 [facility] 3.3 g/dL 2.2-4.2 [facility] 92 U/L 45-117 [facility] 18 U/L 16-61 [facility] 27.0 mmol/L 21.0-32.0 [facility] 941 pg/mL 211-911 [facility] 246 ug/dL 250-450 [facility] Platelets bldOrdered By: Dr. Zapata on 02-05-2022 Platelets (Bld) [#/Vol] 355 10*3/uL 150-450 [facility] Serum or plasma albumin yocasta urement (mass/volume)Ordered By: Dr. Zapata on 02-05-2022 Albumin [Mass/Vol] 3.5 g/dL 3.2-5.0 [facility] Serum or plasma albumin/glob ulin mass ratioOrdered By: Dr. Zapata on 02-05-2022 Albumin/Globulin [Mass ratio] 1.1 {ratio} 0.9-2.4 [facility] Serum or plasma calcium yocasta urement (mass/volume)Ordered By: Dr. Zapata on 02-05-2022 Calcium [Mass/Vol] 9.5 mg/dL 8.5-10.1 [facility] Serum or plasma creatinine m easurement (mass/volume)Ordered By: Dr. Zapata on 02-05-2022 Creatinine [Mass/Vol] 1.34 mg/dL 0.70-1.30 [facility] Comment on above: The validity of the calculated GFR & GFRAA in patients over 70 years has not been determined. Clinical correlation is essential. Serum or plasma ferritin vasquez surement (mass/volume)Ordered By: Dr. Zapata on 02-05-2022 Ferritin [Mass/Vol] 631 ng/mL 26-388 [facility] Serum or plasma folate measu rement (mass/volume)Ordered By: Dr. Zapata on 02-05-2022 Folate [Mass/Vol] 8.40 ng/mL 3.1-55.4 [facility] Serum or plasma iron saturat ion measurement (mass fraction)Ordered By: Dr. Zapata on 02-05-2022 Iron saturation [Mass fraction] 35.8 % 15.0-55.0 [facility] Serum or plasma urea nitroge n measurement (mass/volume)Ordered By: Dr. Zapata on 02-05-2022 Urea nitrogen [Mass/Vol] 32 mg/dL 7-18 [facility] Thin prep Papanicolaou smear with manual screeningOrdered By: Dr. Zapata on 02-05-2022 Thin prep Papanicolaou smear with manual screening 10 U/L 15-37 [facility] Thin prep Papanicolaou smear with manual screening 5 5-15 [facility] Thin prep Papanicolaou smear with manual screening 195 U/L 87-241 [facility] Basophil percentageOrdered B y: Khai Galeana on 01-15-2022 Basophils (Bld) [#/Vol] 8.3 10*3/uL 4.4-11.0 [facility] Basophil percentageon 2021 WBC (Bld) [#/Vol] 8.3 10*3/uL 4.4-11.0 [facility] Work Phone: Blood erythrocytes count (nu mber/volume)Ordered By: Khai Galeana on 01-15-2022 RBC (Bld) [#/Vol] 3.34 10*6/uL 4.6-6.2 [facility] Blood hemoglobin measurement (mass/volume)Ordered By: Khai Galeana on 01-15-2022 Hemoglobin (Bld) [Mass/Vol] 9.3 g/dL 13.0-16.5 [facility] Blood platelet mean volumeOr dered By: Khai Galeana on 01-15-2022 Platelet mean volume (Bld) [Entitic vol] 10.2 fL 6.2-12.0 [facility] Determination of erythrocyte mean corpuscular volume (MCV)Ordered By: Khai Galeana on 01-15-2022 MCV (RBC) [Entitic vol] 88.3 fL 80-94 [facility] Hematocrit Auto (Bld) [Volum e fraction]Ordered By: Khai Galeaan on 01-15-2022 Hematocrit (Bld) [Volume fraction] 29.5 % 40-54 [facility] - Hematology and Cell countson 01-15-2022 Erythrocyte distribution width (RBC) [Entitic vol] 55.7 fL 35.1-43.9 [facility] Work Phone: Erythrocyte distribution width (RBC) [Ratio] 17.2 % 11.6-14.6 [facility] Work Phone: MCH (RBC) [Entitic mass] 27.8 pg 27.0-32.0 [facility] Work Phone: MCHC Auto (RBC) [Mass/Vol]Or dered By: Khai Galeana on 01-15-2022 MCHC (RBC) [Mass/Vol] 31.5 g/dL 32-36 [facility] No Panel InformationOrdered By: Khai Galeana on 01-15-2022 27.8 pg 27.0-32.0 [facility] 17.2 % 11.6-14.6 [facility] 55.7 fl 35.1-43.9 [facility] Platelets bldOrdered By: Wagner Galeana on 01-15-2022 Platelets (Bld) [#/Vol] 334 10*3/uL 150-450 [facility] Absolute lymphocyte counton 12-26-2021 Lymphocytes Auto (Unsp spec) [#/Vol] 1.61 10*3/uL 0.83-4.51 [facility] Work Phone: Basophil percentageon 2021 Basophils/100 WBC (Bld) 0.7 % 0-1 [facility] Work Phone: Bilirubin [Mass/Vol] 0.40 mg/dL 0.20-1.00 [facility] Work Phone: Comment on above: For patients on eltr ombopag therapy, use of Dimension [place] TBIL is not recommended. Chloride [Moles/Vol] 108 mmol[facility]L 98-107 [facility]: Eosinophils/100 WBC (Bld) 8.3 % 0-5 [facility] Work Phone: Glucose [Mass/Vol] 196 mg/dL 74-106 [facility] Work Phone: Comment on above: Fasting Glucose resu lt greater than or equal to 126 mg/dL suggests DIABETES MELLITUS per A.D.A. criteria. Neutrophils (Bld) [#/Vol] 5.3 10*3/uL 2.0-7.7 [facility] Work Phone: Neutrophils/100 WBC (Bld) 62.0 % 47-70 [facility] Work Phone: Potassium [Moles/Vol] 4.4 mmol/L 3.5-5.1 [facility] Work Phone: [phone] Protein [Mass/Vol] 5.9 g/dL 6.4-8.2 [facility] Work Phone: [phone] Sodium [Moles/Vol] 139 mmol/L 136-145 [facility] Work Phone: WBC (Bld) [#/Vol] 8.5 10*3/uL 4.4-11.0 [facility] Work Phone: [phone] Blood erythrocytes count (nu mber/volume)on 12-26-2021 RBC (Bld) [#/Vol] 2.95 10*6/uL 4.6-6.2 [facility] Work Phone: Blood hemoglobin measurement (mass/volume)on 12-26-2021 Hemoglobin (Bld) [Mass/Vol] 8.4 g/dL 13.0-16.5 [facility] Work Phone: Blood lymphocytes/100 leukoc yteson 12-26-2021 Lymphocytes/100 WBC (Bld) 19.0 % 19-41 [facility] Work Phone: Blood monocytes/100 leukocyt eson 12-26-2021 Monocytes/100 WBC (Bld) 8.8 % 0-10 [facility] Work Phone: Blood platelet mean volumeon 12-26-2021 Platelet mean volume (Bld) [Entitic vol] 10.3 fL 6.2-12.0 [facility] Work Phone: Determination of erythrocyte mean corpuscular volume (MCV)on 12-26-2021 MCV (RBC) [Entitic vol] 89.2 fL 80-94 [facility] Work Phone: Hematocrit Auto (Bld) [Volum e fraction]on 12-26-2021 Hematocrit (Bld) [Volume fraction] 26.3 % 40-54 [facility] Work Phone: Hemoglobin in reticulocytes (mass per reticulocyte)Ordered By: Dr. Zapata on 12-26-2021 Hemoglobin (Reticulocytes) [Entitic mass] 28.7 pg 30-35 [facility] Iron measurement (mass/mass) on 12-26-2021 Iron (Unsp spec) [Mass/Mass] 54 ug/dL 65-175 [facility] Work Phone: Laboratory - Chemistry and C hemistry - challengeon 12-26-2021 ALP [Catalytic activity/Vol] 92 U/L 45-117 [facility] Work Phone: ALT [Catalytic activity/Vol] 24 U/L 16-61 [facility] Work Phone: CO2 [Moles/Vol] 25.0 mmol/L 21.0-32.0 [facility] Work Phone: Globulin (S) [Mass/Vol] 3.1 g/dL 2.2-4.2 [facility] Work Phone: Urea nitrogen/Creatinine [Mass ratio] 16.9 mg/mg 10-20 [facility] Work Phone: Laboratory - Hematology and Cell countson 12-26-2021 Erythrocyte distribution width (RBC) [Entitic vol] 59.1 fL 35.1-43.9 [facility] Work Phone: Erythrocyte distribution width (RBC) [Ratio] 18.3 % 11.6-14.6 [facility] Work Phone: Immature granulocytes/100 WBC (Bld) 1.200 % 0.0-0.9 [facility] Work Phone: Comment on above: IG% - Immature Granu locytes (promyelocytes, myelocytes and metamyelocytes) > 1% indicates that a LEFT SHIFT is Present. MCH (RBC) [Entitic mass] 28.5 pg 27.0-32.0 [facility] Work Phone: Nucleated RBC/100 WBC (Bld) [Ratio] 0 % 0-5 [facility] Work Phone: MCHC Auto (RBC) [Mass/Vol]on 12-26-2021 MCHC (RBC) [Mass/Vol] 31.9 g/dL 32-36 [facility] Work Phone: No Panel Informationon 12-26 Estimated GFR (MDRD) Amer 78 mL/min >60 [facility] Work Phone: Comment on above: GFR Calc Estimated GFR (MDRD) Non-Af Amer 64 mL/min >60 [facility] Work Phone: Comment on above: Non- GFR Calc Immature Reticulocyte Fraction 31.90 % 3.00-15.90 [facility] Work Phone: Reticulocyte Count 3.23 % 0.5-1.5 [facility] Work Phone: Total Iron Binding Capacity 235 ug/dL 250-450 [facility] Work Phone: No Panel InformationOrdered By: Dr. Zapata on 12-26-2021 Immature Platelet Fraction 28.7 % 1.0-7.9 [facility] Comment on above: Low PLT + Low IPF joyce ggest a bone marrow production disorderLow PLT + high IPF suggests peripheral destruction(e.g.ITP, TTP, HIT, DIC, autoimmune) or bone marrow recoveryTrending of serial IPF measurements is recommended when evaluating for bone marrow responesValue above normal range indicates an increase in RBC cellular response from bone marrow. 3.23 % 0.5-1.5 [facility] 31.90 % 3.00-15.90 [facility] 28.7 % 1.0-7.9 [facility] Platelets bldon 12-26-2021 Platelets (Bld) [#/Vol] 221 10*3/uL 150-450 [facility] Work Phone: Serum or plasma albumin yocasta urement (mass/volume)on 12-26-2021 Albumin [Mass/Vol] 2.8 g/dL 3.2-5.0 [facility] Work Phone: Serum or plasma albumin/glob ulin mass ratioon 12-26-2021 Albumin/Globulin [Mass ratio] 0.9 {ratio} 0.9-2.4 [facility] Work Phone: Serum or plasma calcium yocasta urement (mass/volume)on 12-26-2021 Calcium [Mass/Vol] 8.4 mg/dL 8.5-10.1 [facility] Work Phone: Serum or plasma creatinine m easurement (mass/volume)on 12-26-2021 Creatinine [Mass/Vol] 1.18 mg/dL 0.70-1.30 [facility] Work Phone: Comment on above: The validity of the calculated GFR & GFRAA in patients over 70 years has not been determined. Clinical correlation is essential. Serum or plasma ferritin vasquez surement (mass/volume)on 12-26-2021 Ferritin [Mass/Vol] 160 ng/mL 26-388 [facility] Work Phone: Serum or plasma iron saturat ion measurement (mass fraction)on 12-26-2021 Iron saturation [Mass fraction] 23.0 % 15.0-55.0 [facility] Work Phone: Serum or plasma urea nitroge n measurement (mass/volume)on 12-26-2021 Urea nitrogen [Mass/Vol] 20 mg/dL 7-18 [facility] Work Phone: Thin prep Papanicolaou smear with manual screeningon 12-26-2021 Thin prep Papanicolaou smear with manual screening 13 U/L 15-37 [facility] Work Phone: Thin prep Papanicolaou smear with manual screening 6 5-15 [facility] Work Phone: Thin prep Papanicolaou smear with manual screening 213 U/L 87-241 [facility] Work Phone: Absolute lymphocyte countOrd ered By: Khai Galeana on 12-21-2021 Lymphocytes Auto (Unsp spec) [#/Vol] 1.52 10*3/uL 0.83-4.51 [facility] Basophil percentageOrdered B y: Khai Galeana on 12-21-2021 Basophils (Bld) [#/Vol] 10.1 10*3/uL 4.4-11.0 [facility] Basophils (Bld) [#/Vol] 6.5 10*3/uL 2.0-7.7 [facility] Basophils/100 WBC (Bld) 0.4 % 0-1 [facility] Basophils/100 WBC (Bld) 64.3 % 47-70 [facility] Basophils/100 WBC (Bld) 8.4 % 0-5 [facility] Basophil percentageon 2021 Eosinophils/100 WBC (Bld) 8.4 % 0-5 [facility] Work Phone: Neutrophils (Bld) [#/Vol] 6.5 10*3/uL 2.0-7.7 [facility] Work Phone: Neutrophils/100 WBC (Bld) 64.3 % 47-70 [facility] Work Phone: WBC (Bld) [#/Vol] 10.1 10*3/uL 4.4-11.0 [facility] Work Phone: Blood erythrocytes count (nu mber/volume)Ordered By: Khai Galeana on 12-21-2021 RBC (Bld) [#/Vol] 3.50 10*6/uL 4.6-6.2 [facility] Blood hemoglobin measurement (mass/volume)Ordered By: Khai Galeana on 12-21-2021 Hemoglobin (Bld) [Mass/Vol] 9.8 g/dL 13.0-16.5 [facility] Blood lymphocytes/100 leukoc ytesOrdered By: Khai Galeana on 12-21-2021 Lymphocytes/100 WBC (Bld) 15.1 % 19-41 [facility] Blood monocytes/100 leukocyt esOrdered By: Khai Galeana on 12-21-2021 Monocytes/100 WBC (Bld) 9.6 % 0-10 [facility] Blood platelet mean volumeOr dered By: Khai Galeana on 12-21-2021 Platelet mean volume (Bld) [Entitic vol] 10.8 fL 6.2-12.0 [facility] Determination of erythrocyte mean corpuscular volume (MCV)Ordered By: Khai Galeana on 12-21-2021 MCV (RBC) [Entitic vol] 90.0 fL 80-94 [facility] Hematocrit Auto (Bld) [Volum e fraction]Ordered By: Khai Galeana on 12-21-2021 Hematocrit (Bld) [Volume fraction] 31.5 % 40-54 [facility] - Hematology and Cell countson 12-21-2021 Erythrocyte distribution width (RBC) [Entitic vol] 63.5 fL 35.1-43.9 [facility] Work Phone: Erythrocyte distribution width (RBC) [Ratio] 19.1 % 11.6-14.6 [facility] Work Phone: Immature granulocytes/100 WBC (Bld) 2.200 % 0.0-0.9 [facility] Work Phone: Comment on above: IG% - Immature Granu locytes (promyelocytes, myelocytes and metamyelocytes) > 1% indicates that a LEFT SHIFT is Present. MCH (RBC) [Entitic mass] 28.0 pg 27.0-32.0 [facility] Work Phone: Nucleated RBC/100 WBC (Bld) [Ratio] 0 % 0-5 [facility] Work Phone: MCHC Auto (RBC) [Mass/Vol]Or dered By: Khai Galeana on 12-21-2021 MCHC (RBC) [Mass/Vol] 31.1 g/dL 32-36 [facility] No Panel InformationOrdered By: Khai Galeana on 12-21-2021 28.0 pg 27.0-32.0 [facility] 19.1 % 11.6-14.6 [facility] 63.5 fl 35.1-43.9 [facility] 2.200 % 0.0-0.9 [facility] 0 % 0-5 [facility] Platelets bldOrdered By: Wagner Galeana on 12-21-2021 Platelets (Bld) [#/Vol] 242 10*3/uL 150-450 [facility] No Panel InformationOrdered By: Dr. Joy on 12-14-2021 No growth in 5 days. [facility] Absolute lymphocyte countOrd ered By: Dr. Rosas on 12-11-2021 Lymphocytes Auto (Unsp spec) [#/Vol] 0.92 10*3/uL 0.83-4.51 [facility] Basophil percentageOrdered B y: Dr. Rosas on 12-11-2021 Basophil percentage 324 mg/dL 74-106 [facility] Basophil percentage 5.2 g/dL 6.4-8.2 [facility] Basophil percentage 0.30 mg/dL 0.20-1.00 [facility] Basophil percentage 141 mmol/L 136-145 [facility] Basophil percentage 5.0 mmol/L 3.5-5.1 [facility] Basophil percentage 109 mmol/L 98-107 [facility] Basophils (Bld) [#/Vol] 8.9 10*3/uL 4.4-11.0 [facility] Basophils (Bld) [#/Vol] 7.4 10*3/uL 2.0-7.7 [facility] Basophils/100 WBC (Bld) 0.1 % 0-1 [facility] Basophils/100 WBC (Bld) 83.3 % 47-70 [facility] Basophils/100 WBC (Bld) 0.0 % 0-5 [facility] Basophil percentageon 10-18- 2022 Bilirubin [Mass/Vol] 0.30 mg/dL 0.20-1.00 [facility] Work Phone: Comment on above: For patients on eltr ombopag therapy, use of Dimension Converse TBIL is not recommended. Chloride [Moles/Vol] 109 mmol/L 98-107 [facility] Work Phone: Eosinophils/100 WBC (Bld) 0.0 % 0-5 [facility] Work Phone: [phone] Glucose [Mass/Vol] 324 mg/dL 74-106 [facility] Work Phone: Comment on above: Glucose result great er than or equal to 200 mg/dLsuggests DIABETES MELLITUS per A.D.A. criteria. Neutrophils (Bld) [#/Vol] 7.4 10*3/uL 2.0-7.7 [facility] Work Phone: Neutrophils/100 WBC (Bld) 83.3 % 47-70 [facility] Work Phone: Potassium [Moles/Vol] 5.0 mmol/L 3.5-5.1 [facility] Work Phone: Protein [Mass/Vol] 5.2 g/dL 6.4-8.2 [facility] Work Phone: [phone] Sodium [Moles/Vol] 141 mmol/L 136-145 [facility] Work Phone: [phone] WBC (Bld) [#/Vol] 8.9 10*3/uL 4.4-11.0 [facility] Work Phone: Blood erythrocytes count (nu mber/volume)Ordered By: Dr. Rosas on 12-11-2021 RBC (Bld) [#/Vol] 2.86 10*6/uL 4.6-6.2 [facility] Blood hemoglobin measurement (mass/volume)Ordered By: Dr. Rosas on 12-11-2021 Hemoglobin (Bld) [Mass/Vol] 8.1 g/dL 13.0-16.5 [facility] Blood lymphocytes/100 leukoc ytesOrdered By: Dr. Rosas on 12-11-2021 Lymphocytes/100 WBC (Bld) 10.4 % 19-41 [facility] Blood monocytes/100 leukocyt esOrdered By: Dr. Rosas on 12-11-2021 Monocytes/100 WBC (Bld) 4.7 % 0-10 [facility] Blood platelet mean volumeOr dered By: Dr. Rosas on 12-11-2021 Platelet mean volume (Bld) [Entitic vol] 11.2 fL 6.2-12.0 [facility] Determination of erythrocyte mean corpuscular volume (MCV)Ordered By: Dr. Rosas on 12-11-2021 MCV (RBC) [Entitic vol] 88.5 fL 80-94 [facility] Glucose Glucometer (BldC) [M ass/Vol]Ordered By: Dr. Ortiz on 12-11-2021 Glucose [Mass/Vol] 283 mg/dL 74-106 [facility] Comment on above: MANAGEMENT OF PATIEN T CARE PER NURSING PROTOCOL Hematocrit Auto (Bld) [Volum e fraction]Ordered By: Dr. Rosas on 12-11-2021 Hematocrit (Bld) [Volume fraction] 25.3 % 40-54 [facility] - Chemistry and C hemistry - challengeon 12-11-2021 ALP [Catalytic activity/Vol] 66 U/L 45-117 [facility] Work Phone: ALT [Catalytic activity/Vol] 20 U/L 16-61 [facility] Work Phone: CO2 [Moles/Vol] 27.0 mmol/L 21.0-32.0 [facility] Work Phone: Globulin (S) [Mass/Vol] 2.7 g/dL 2.2-4.2 [facility] Work Phone: Urea nitrogen/Creatinine [Mass ratio] 30.4 mg/mg 10-20 [facility] Work Phone: Laboratory - Hematology and Cell countson 12-11-2021 Erythrocyte distribution width (RBC) [Entitic vol] 56.6 fL 35.1-43.9 [facility] Work Phone: Erythrocyte distribution width (RBC) [Ratio] 17.5 % 11.6-14.6 [facility] Work Phone: Immature granulocytes/100 WBC (Bld) 1.500 % 0.0-0.9 [facility] Work Phone: Comment on above: IG% - Immature Granu locytes (promyelocytes, myelocytes and metamyelocytes) > 1% indicates that a LEFT SHIFT is Present. MCH (RBC) [Entitic mass] 28.3 pg 27.0-32.0 [facility] Work Phone: Nucleated RBC/100 WBC (Bld) [Ratio] 0.2 % 0-5 [facility] Work Phone: MCHC Auto (RBC) [Mass/Vol]Or dered By: Dr. Rosas on 12-11-2021 MCHC (RBC) [Mass/Vol] 32.0 g/dL 32-36 [facility] No Panel Informationon 12-11 Estimated Creatinine Clearance Calc 61.84 ml/min [facility] Work Phone: Estimated GFR (MDRD) Amer 80 mL/min >60 [facility] Work Phone: Comment on above: GFR Calc Estimated GFR (MDRD) Non-Af Amer 66 mL/min >60 [facility] Work Phone: Comment on above: Non- GFR Calc No Panel InformationOrdered By: Dr. Rosas on 12-11-2021 28.3 pg 27.0-32.0 [facility] 17.5 % 11.6-14.6 [facility] 56.6 fl 35.1-43.9 [facility] 1.500 % 0.0-0.9 [facility] 0.2 % 0-5 [facility] 66 mL/min >60 [facility] 80 mL/min >60 [facility] 61.84 ml/min [facility] 30.4 RATIO 10-20 [facility] 2.7 g/dL 2.2-4.2 [facility] 66 U/L 45-117 [facility] 20 U/L 16-61 [facility] 27.0 mmol/L 21.0-32.0 [facility] Platelets bldOrdered By: Dr. Rosas on 12-11-2021 Platelets (Bld) [#/Vol] 239 10*3/uL 150-450 [facility] Serum or plasma albumin yocasta urement (mass/volume)Ordered By: Dr. Rosas on 12-11-2021 Albumin [Mass/Vol] 2.5 g/dL 3.2-5.0 [facility] Serum or plasma albumin/glob ulin mass ratioOrdered By: Dr. Rosas on 12-11-2021 Albumin/Globulin [Mass ratio] 0.9 {ratio} 0.9-2.4 [facility] Serum or plasma calcium yocasta urement (mass/volume)Ordered By: Dr. Rosas on 12-11-2021 Calcium [Mass/Vol] 8.4 mg/dL 8.5-10.1 [facility] Serum or plasma creatinine m easurement (mass/volume)Ordered By: Dr. Rosas on 12-11-2021 Creatinine [Mass/Vol] 1.15 mg/dL 0.70-1.30 [facility] Comment on above: The validity of the calculated GFR & GFRAA in patients over 70 years has not been determined. Clinical correlation is essential. Serum or plasma urea nitroge n measurement (mass/volume)Ordered By: Dr. Rosas on 12-11-2021 Urea nitrogen [Mass/Vol] 35 mg/dL 7-18 [facility] Thin prep Papanicolaou smear with manual screeningOrdered By: Dr. Rosas on 12-11-2021 Thin prep Papanicolaou smear with manual screening 12 U/L 15-37 [facility] Thin prep Papanicolaou smear with manual screening 5 5-15 [facility] INR in Blood by Coagulation assayOrdered By: Dr. Chen on 12-10-2021 INR Coag (Bld) [Relative time] 1.2 {INR} [facility] Laboratory - Coagulationon 1 aPTT Coag (Bld) [Time] 24.6 s 24.1-36.2 [facility] Work Phone: PT Coag (PPP) [Time] 14.8 s 11.7-14.9 [facility] Work Phone: Microbial respiratory cultur eOrdered By: Dr. Joy on 12-10-2021 Bacteria identified Respiratory culture Nom (Unsp spec) or Staphylococcus aureus isolated. [facility] No Panel InformationOrdered By: Dr. Chen on 12-10-2021 14.8 SECONDS 11.7-14.9 [facility] 24.6 Seconds 24.1-36.2 [facility] Whole blood hemoglobin A1c/t otal hemoglobin ratio (mass fraction)Ordered By: Dr. Chen on 12-10-2021 HbA1c (Bld) [Mass fraction] 8.5 % 3.8-5.6 [facility] Comment on above: Normal < 5.7 % Predi abetic 5.7 - 6.4 % Diabetic >or= 6.5 % Please note range changes. Gram stain for investigation of transfusion reactionOrdered By: Dr. Joy on 12-09-2021 Microscopic observation Gram stain Nom (Unsp spec) [facility] Lower GI hemoglobin IA Ql (S tl)Ordered By: Dr. Rosas on 12-09-2021 Stool gastrointestinal hemoglobin detection by immunologic method Positive [facility] Respiratory pathogens DNA an d RNA 12b panel JUSTIN+probe (Unsp spec)Ordered By: Dr. Mackey on 12-09-2021 Rhinovirus [facility] Urine Legionella pneumophila antigen detectionOrdered By: Dr. Mackey on 12-09-2021 L. pneumophila Ag Ql (U) [facility] Absolute lymphocyte counton 12-08-2021 Lymphocytes Auto (Unsp spec) [#/Vol] 1.72 10*3/uL 0.83-4.51 [facility] Work Phone: Basophil percentageon 2021 Basophils/100 WBC (Bld) 0.7 % 0-1 [facility] Work Phone: Chloride [Moles/Vol] 110 mmol/L 98-107 [facility] Work Phone: Eosinophils/100 WBC (Bld) 3.8 % 0-5 [facility] Work Phone: [phone] Glucose [Mass/Vol] 200 mg/dL 74-106 [facility] Work Phone: [phone] Comment on above: Glucose result great er than or equal to 200 mg/dLsuggests DIABETES MELLITUS per A.D.A. criteria. Neutrophils (Bld) [#/Vol] 7.9 10*3/uL 2.0-7.7 [facility] Work Phone: [phone] Neutrophils/100 WBC (Bld) 68.8 % 47-70 [facility] Work Phone: Potassium [Moles/Vol] 4.0 mmol/L 3.5-5.1 [facility] Work Phone: [phone] Sodium [Moles/Vol] 143 mmol/L 136-145 [facility] Work Phone: WBC (Bld) [#/Vol] 11.5 10*3/uL 4.4-11.0 [facility]: Blood erythrocytes count (nu mber/volume)on 12-08-2021 RBC (Bld) [#/Vol] 3.36 10*6/uL 4.6-6.2 [facility] Work Phone: Blood hemoglobin measurement (mass/volume)on 12-08-2021 Hemoglobin (Bld) [Mass/Vol] 9.0 g/dL 13.0-16.5 [facility] Work Phone: Blood lymphocytes/100 leukoc yteson 12-08-2021 Lymphocytes/100 WBC (Bld) 15.0 % 19-41 [facility] Work Phone: [phone] Blood monocytes/100 leukocyt eson 12-08-2021 Monocytes/100 WBC (Bld) 9.0 % 0-10 [facility] Work Phone: Blood platelet mean volumeon 12-08-2021 Platelet mean volume (Bld) [Entitic vol] 9.9 fL 6.2-12.0 [facility] Work Phone: Determination of erythrocyte mean corpuscular volume (MCV)on 12-08-2021 MCV (RBC) [Entitic vol] 88.7 fL 80-94 [facility] Work Phone: Hematocrit Auto (Bld) [Volum e fraction]on 12-08-2021 Hematocrit (Bld) [Volume fraction] 29.8 % 40-54 [facility] Work Phone: Laboratory - Chemistry and C hemistry - challengeon 12-08-2021 CO2 [Moles/Vol] 26.0 mmol/L 21.0-32.0 [facility] Work Phone: Natriuretic peptide B (Bld) [Mass/Vol] 191.0 pg/mL 0-100 [facility] Work Phone: Urea nitrogen/Creatinine [Mass ratio] 19.3 mg/mg 10-20 [facility] Work Phone: Laboratory - Hematology and Cell countson 12-08-2021 Erythrocyte distribution width (RBC) [Entitic vol] 57.9 fL 35.1-43.9 [facility] Work Phone: Erythrocyte distribution width (RBC) [Ratio] 17.9 % 11.6-14.6 [facility] Work Phone: Immature granulocytes/100 WBC (Bld) 2.700 % 0.0-0.9 [facility] Work Phone: Comment on above: IG% - Immature Granu locytes (promyelocytes, myelocytes and metamyelocytes) > 1% indicates that a LEFT SHIFT is Present. MCH (RBC) [Entitic mass] 26.8 pg 27.0-32.0 [facility] Work Phone: Nucleated RBC/100 WBC (Bld) [Ratio] 0 % 0-5 [facility] Work Phone: MCHC Auto (RBC) [Mass/Vol]on 12-08-2021 MCHC (RBC) [Mass/Vol] 30.2 g/dL 32-36 [facility]: No Panel Informationon 10-15 -2022 Methicillin-Resist S.aureus DNA PCR Negative Negative [facility] Work Phone: D-Dimer Quantitative (PE/DVT) 1.50 FEU/ug/m 0.27-0.49 [facility] Work Phone: Comment on above: CRITICAL VALUE VERIF IED. CALLED TO [id number] Tim Oliva.RESULTS READ BACK BY SAME . D-Dimer ELEVATED (>0.49): Additional studies and clinicalassessments are indicated to conclude diagnosis of:Deep Vein Thrombosis (DVT) or Pulmonary Embolism (PE) Estimated Creatinine Clearance Calc 59.76 ml/min [facility] Work Phone: Estimated GFR (MDRD) Amer 77 mL/min >60 [facility] Work Phone: Comment on above: GFR Calc Estimated GFR (MDRD) Non-Af Amer 64 mL/min >60 [facility] Work Phone: Comment on above: Non- GFR Calc Troponin I High Sensitivity 11 pg/mL 3.0-78.0 [facility] Work Phone: Comment on above: Please Note: New Jennifer t Units and Gender Specific Reference Ranges. For more information see Policy Stat Procedure [place] High Sensitivity Troponin (TNIH) and attachments. No Panel InformationOrdered By: Dr. Mackey on 12-08-2021 Negative Negative [facility] No Panel InformationOrdered By: Dr. Joy on 12-08-2021 1.50 FEU/ug/m 0.27-0.49 [facility] 11 pg/mL 3.0-78.0 [facility] 191.0 pg/mL 0-100 [facility] Platelets bldon 12-08-2021 Platelets (Bld) [#/Vol] 352 10*3/uL 150-450 [facility] Work Phone: Serum or plasma calcium yocasta urement (mass/volume)on 12-08-2021 Calcium [Mass/Vol] 9.1 mg/dL 8.5-10.1 [facility] Work Phone: Serum or plasma creatinine m easurement (mass/volume)on 12-08-2021 Creatinine [Mass/Vol] 1.19 mg/dL 0.70-1.30 [facility] Work Phone: Comment on above: The validity of the calculated GFR & GFRAA in patients over 70 years has not been determined. Clinical correlation is essential. Serum or plasma urea nitroge n measurement (mass/volume)on 12-08-2021 Urea nitrogen [Mass/Vol] 23 mg/dL 7-18 [facility] Work Phone: Thin prep Papanicolaou smear with manual screeningon 12-08-2021 Thin prep Papanicolaou smear with manual screening 7 07-08 [facility] Work Phone: Basophil percentageon 2021 WBC (Bld) [#/Vol] 8.6 10*3/uL 4.4-11.0 [facility] Work Phone: Blood erythrocytes count (nu mber/volume)on 11-16-2021 RBC (Bld) [#/Vol] 3.80 10*6/uL 4.6-6.2 [facility] Work Phone: Blood hemoglobin measurement (mass/volume)on 11-16-2021 Hemoglobin (Bld) [Mass/Vol] 10.2 g/dL 13.0-16.5 [facility] Work Phone: Blood platelet mean volumeon 11-16-2021 Platelet mean volume (Bld) [Entitic vol] 10.9 fL 6.2-12.0 [facility] Work Phone: Determination of erythrocyte mean corpuscular volume (MCV)on 11-16-2021 MCV (RBC) [Entitic vol] 88.2 fL 80-94 [facility] Work Phone: Hematocrit Auto (Bld) [Volum e fraction]on 11-16-2021 Hematocrit (Bld) [Volume fraction] 33.5 % 40-54 [facility] Work Phone: Laboratory - Hematology and Cell countson 11-16-2021 Erythrocyte distribution width (RBC) [Entitic vol] 56.0 fL 35.1-43.9 [facility] Work Phone: Erythrocyte distribution width (RBC) [Ratio] 17.5 % 11.6-14.6 [facility] Work Phone: MCH (RBC) [Entitic mass] 26.8 pg 27.0-32.0 [facility] Work Phone: MCHC Auto (RBC) [Mass/Vol]on 11-16-2021 MCHC (RBC) [Mass/Vol] 30.4 g/dL 32-36 [facility] Work Phone: Platelets bldon 11-16-2021 Platelets (Bld) [#/Vol] 218 10*3/uL 150-450 [facility] Work Phone: Absolute lymphocyte counton 10-26-2021 Lymphocytes Auto (Unsp spec) [#/Vol] 0.85 10*3/uL 0.83-4.51 [facility] Work Phone: Basophil percentageon 2021 Basophils/100 WBC (Bld) 0.2 % 0-1 [facility] Work Phone: Bilirubin [Mass/Vol] 0.40 mg/dL 0.20-1.00 [facility] Work Phone: Comment on above: For patients on eltr ombopag therapy, use of Dimension [place] TBIL is not recommended. Chloride [Moles/Vol] 106 mmol/L 98-107 [facility] Work Phone: Eosinophils/100 WBC (Bld) 0.3 % 0-5 [facility] Work Phone: Glucose [Mass/Vol] 120 mg/dL 74-106 [facility] Work Phone: Comment on above: Fasting Glucose resu lt from 100 to 125 mg/dL suggests IMPAIRED HOMEOSTASIS per A.D.A. criteria. Neutrophils (Bld) [#/Vol] 6.8 10*3/uL 2.0-7.7 [facility] Work Phone: Neutrophils/100 WBC (Bld) 75.9 % 47-70 [facility] Work Phone: Potassium [Moles/Vol] 4.0 mmol/L 3.5-5.1 [facility] Work Phone: Protein [Mass/Vol] 5.3 g/dL 6.4-8.2 [facility] Work Phone: Sodium [Moles/Vol] 143 mmol/L 136-145 [facility] Work Phone: [phone] WBC (Bld) [#/Vol] 8.9 10*3/uL 4.4-11.0 [facility] Work Phone: Blood erythrocytes count (nu mber/volume)on 10-26-2021 RBC (Bld) [#/Vol] 3.44 10*6/uL 4.6-6.2 [facility]: Blood hemoglobin measurement (mass/volume)on 10-26-2021 Hemoglobin (Bld) [Mass/Vol] 9.0 g/dL 13.0-16.5 [facility] Work Phone: Blood lymphocytes/100 leukoc yteson 10-26-2021 Lymphocytes/100 WBC (Bld) 9.6 % 19-41 [facility] Work Phone: Blood monocytes/100 leukocyt eson 10-26-2021 Monocytes/100 WBC (Bld) 12.5 % 0-10 [facility] Work Phone: Blood platelet mean volumeon 10-26-2021 Platelet mean volume (Bld) [Entitic vol] 10.2 fL 6.2-12.0 [facility] Work Phone: Determination of erythrocyte mean corpuscular volume (MCV)on 10-26-2021 MCV (RBC) [Entitic vol] 85.5 fL 80-94 [facility] Work Phone: Glucose Glucometer (BldC) [M ass/Vol]on 10-26-2021 Glucose [Mass/Vol] 236 mg/dL 74-106 [facility] Work Phone: Comment on above: MANAGEMENT OF PATIEN T CARE PER NURSING PROTOCOL Hematocrit Auto (Bld) [Volum e fraction]on 10-26-2021 Hematocrit (Bld) [Volume fraction] 29.4 % 40-54 [facility] Work Phone: Laboratory - Chemistry and C hemistry - challengeon 10-26-2021 ALP [Catalytic activity/Vol] 71 U/L 45-117 [facility] Work Phone: ALT [Catalytic activity/Vol] 11 U/L 16-61 [facility] Work Phone: CO2 [Moles/Vol] 30.0 mmol/L 21.0-32.0 [facility] Work Phone: Globulin (S) [Mass/Vol] 2.6 g/dL 2.2-4.2 [facility] Work Phone: Urea nitrogen/Creatinine [Mass ratio] 20.3 mg/mg 10-20 [facility] Work Phone: Laboratory - Hematology and Cell countson 10-26-2021 Erythrocyte distribution width (RBC) [Entitic vol] 49.1 fL 35.1-43.9 [facility] Work Phone: Erythrocyte distribution width (RBC) [Ratio] 15.9 % 11.6-14.6 [facility] Work Phone: Immature granulocytes/100 WBC (Bld) 1.500 % 0.0-0.9 [facility] Work Phone: Comment on above: IG% - Immature Granu locytes (promyelocytes, myelocytes and metamyelocytes) > 1% indicates that a LEFT SHIFT is Present. MCH (RBC) [Entitic mass] 26.2 pg 27.0-32.0 [facility] Work Phone: Nucleated RBC/100 WBC (Bld) [Ratio] 0 % 0-5 [facility] Work Phone: MCHC Auto (RBC) [Mass/Vol]on 10-26-2021 MCHC (RBC) [Mass/Vol] 30.6 g/dL 32-36 [facility] Work Phone: No Panel Informationon 10-26 Estimated Creatinine Clearance Calc 55.56 ml/min [facility] Work Phone: Estimated GFR (MDRD) Amer 71 mL/min >60 [facility] Work Phone: Comment on above: GFR Calc Estimated GFR (MDRD) Non-Af Amer 59 mL/min >60 [facility] Work Phone: Comment on above: Non- GFR Calc Platelets bldon 10-26-2021 Platelets (Bld) [#/Vol] 316 10*3/uL 150-450 [facility] Work Phone: Serum or plasma albumin yocasta urement (mass/volume)on 10-26-2021 Albumin [Mass/Vol] 2.7 g/dL 3.2-5.0 [facility] Work Phone: Serum or plasma albumin/glob ulin mass ratioon 10-26-2021 Albumin/Globulin [Mass ratio] 1.0 {ratio} 0.9-2.4 [facility] Work Phone: Serum or plasma calcium yocasta urement (mass/volume)on 10-26-2021 Calcium [Mass/Vol] 8.7 mg/dL 8.5-10.1 [facility] Work Phone: Serum or plasma creatinine m easurement (mass/volume)on 10-26-2021 Creatinine [Mass/Vol] 1.28 mg/dL 0.70-1.30 [facility] Work Phone: Comment on above: The validity of the calculated GFR & GFRAA in patients over 70 years has not been determined. Clinical correlation is essential. Serum or plasma urea nitroge n measurement (mass/volume)on 10-26-2021 Urea nitrogen [Mass/Vol] 26 mg/dL 7-18 [facility] Work Phone: Thin prep Papanicolaou smear with manual screeningon 10-26-2021 Thin prep Papanicolaou smear with manual screening 8 U/L 15-37 [facility] Work Phone: Thin prep Papanicolaou smear with manual screening 7 5-15 [facility] Work Phone: Direct bilirubinon 2 Bilirubin.direct [Mass/Vol] 0.13 mg/dL 0.00-0.30 [facility] Work Phone: INR in Blood by Coagulation assayon 10-25-2021 INR Coag (Bld) [Relative time] 1.1 {INR} [facility] Work Phone: Laboratory - Coagulationon 0 10-25-2021 aPTT Coag (Bld) [Time] 32.7 s 24.1-36.2 [facility] Work Phone: PT Coag (PPP) [Time] 13.6 s 11.7-14.9 [facility] Work Phone: Whole blood hemoglobin A1c/t otal hemoglobin ratio (mass fraction)on 10-25-2021 HbA1c (Bld) [Mass fraction] 6.5 % 3.8-5.6 [facility] Work Phone: Comment on above: Normal < 5.7 % Predi abetic 5.7 - 6.4 % Diabetic >or= 6.5 % Please note range changes. Laboratory - Chemistry and C hemistry - challengeon 10-24-2021 Natriuretic peptide B (Bld) [Mass/Vol] 249.7 pg/mL 0-100 [facility] Work Phone: Basophil percentageon 2021 Lactate [Moles/Vol] 1.0 mmol/L 0.4-2.0 [facility] Work Phone: No Panel Informationon 10-23 Troponin I High Sensitivity 10 pg/mL 3.0-78.0 [facility] Work Phone: Comment on above: Please Note: New Jennifer t Units and Gender Specific Reference Ranges. For more information see Policy Stat Procedure [place] High Sensitivity Troponin (TNIH) and attachments. Absolute lymphocyte counton 10-02-2021 Lymphocytes Auto (Unsp spec) [#/Vol] 1.26 10*3/uL 0.83-4.51 [facility] Work Phone: Basophil percentageon 2021 Basophils/100 WBC (Bld) 0.9 % 0-1 [facility] Work Phone: Bilirubin [Mass/Vol] 0.30 mg/dL 0.20-1.00 [facility] Work Phone: Comment on above: For patients on eltr ombopag therapy, use of Dimension [place] TBIL is not recommended. Chloride [Moles/Vol] 110 mmol/L 98-107 [facility] Work Phone: Eosinophils/100 WBC (Bld) 12.4 % 0-5 [facility] Work Phone: Glucose [Mass/Vol] 96 mg/dL 74-106 [facility] Work Phone: Neutrophils (Bld) [#/Vol] 4.4 10*3/uL 2.0-7.7 [facility] Work Phone: Neutrophils/100 WBC (Bld) 55.3 % 47-70 [facility] Work Phone: Potassium [Moles/Vol] 3.9 mmol/L 3.5-5.1 [facility] Work Phone: Protein [Mass/Vol] 5.2 g/dL 6.4-8.2 [facility] Work Phone: Sodium [Moles/Vol] 141 mmol/L 136-145 [facility] Work Phone: WBC (Bld) [#/Vol] 8.0 10*3/uL 4.4-11.0 [facility] Work Phone: Blood erythrocytes count (nu mber/volume)on 10-02-2021 RBC (Bld) [#/Vol] 2.90 10*6/uL 4.6-6.2 [facility] Work Phone: Blood hemoglobin measurement (mass/volume)on 10-02-2021 Hemoglobin (Bld) [Mass/Vol] 8.0 g/dL 13.0-16.5 [facility] Work Phone: Blood lymphocytes/100 leukoc yteson 10-02-2021 Lymphocytes/100 WBC (Bld) 15.7 % 19-41 [facility] Work Phone: Blood monocytes/100 leukocyt eson 10-02-2021 Monocytes/100 WBC (Bld) 15.0 % 0-10 [facility] Work Phone: Blood platelet mean volumeon 10-02-2021 Platelet mean volume (Bld) [Entitic vol] 10.3 fL 6.2-12.0 [facility] Work Phone: Determination of erythrocyte mean corpuscular volume (MCV)on 10-02-2021 MCV (RBC) [Entitic vol] 89.3 fL 80-94 [facility] Work Phone: Glucose Glucometer (BldC) [M ass/Vol]on 10-02-2021 Glucose [Mass/Vol] 246 mg/dL 74-106 [facility] Work Phone: Comment on above: MANAGEMENT OF PATIEN T CARE PER NURSING PROTOCOL Hematocrit Auto (Bld) [Volum e fraction]on 10-02-2021 Hematocrit (Bld) [Volume fraction] 25.9 % 40-54 [facility] Work Phone: Laboratory - Chemistry and C hemistry - challengeon 10-02-2021 ALP [Catalytic activity/Vol] 71 U/L 45-117 [facility] Work Phone: ALT [Catalytic activity/Vol] 12 U/L 16-61 [facility] Work Phone: CO2 [Moles/Vol] 25.0 mmol/L 21.0-32.0 [facility] Work Phone: Globulin (S) [Mass/Vol] 3.0 g/dL 2.2-4.2 [facility] Work Phone: Urea nitrogen/Creatinine [Mass ratio] 22.2 mg/mg 10-20 [facility] Work Phone: Laboratory - Hematology and Cell countson 10-02-2021 Erythrocyte distribution width (RBC) [Entitic vol] 51.6 fL 35.1-43.9 [facility] Work Phone: Erythrocyte distribution width (RBC) [Ratio] 15.7 % 11.6-14.6 [facility] Work Phone: Immature granulocytes/100 WBC (Bld) 0.700 % 0.0-0.9 [facility] Work Phone: Comment on above: IG% - Immature Granu locytes (promyelocytes, myelocytes and metamyelocytes) > 1% indicates that a LEFT SHIFT is Present. MCH (RBC) [Entitic mass] 27.6 pg 27.0-32.0 [facility] Work Phone: Nucleated RBC/100 WBC (Bld) [Ratio] 0 % 0-5 [facility] Work Phone: MCHC Auto (RBC) [Mass/Vol]on 10-02-2021 MCHC (RBC) [Mass/Vol] 30.9 g/dL 32-36 [facility] Work Phone: No Panel Informationon 10-02 Methicillin-Resist S.aureus DNA PCR Negative Negative [facility] Work Phone: Estimated Creatinine Clearance Calc 60.78 ml/min [facility] Work Phone: Estimated GFR (MDRD) Amer 79 mL/min >60 [facility] Work Phone: Comment on above: GFR Calc Estimated GFR (MDRD) Non-Af Amer 65 mL/min >60 [facility] Work Phone: Comment on above: Non- GFR Calc Platelets bldon 10-02-2021 Platelets (Bld) [#/Vol] 278 10*3/uL 150-450 [facility] Work Phone: Serum or plasma albumin yocasta urement (mass/volume)on 10-02-2021 Albumin [Mass/Vol] 2.2 g/dL 3.2-5.0 [facility] Work Phone: Serum or plasma albumin/glob ulin mass ratioon 10-02-2021 Albumin/Globulin [Mass ratio] 0.7 {ratio} 0.9-2.4 [facility] Work Phone: Serum or plasma calcium yocasta urement (mass/volume)on 10-02-2021 Calcium [Mass/Vol] 8.2 mg/dL 8.5-10.1 [facility] Work Phone: Serum or plasma creatinine m easurement (mass/volume)on 10-02-2021 Creatinine [Mass/Vol] 1.17 mg/dL 0.70-1.30 [facility] Work Phone: Comment on above: The validity of the calculated GFR & GFRAA in patients over 70 years has not been determined. Clinical correlation is essential. Serum or plasma urea nitroge n measurement (mass/volume)on 10-02-2021 Urea nitrogen [Mass/Vol] 26 mg/dL 7-18 [facility] Work Phone: Thin prep Papanicolaou smear with manual screeningon 10-02-2021 Thin prep Papanicolaou smear with manual screening 10 U/L 15-37 [facility] Work Phone: Thin prep Papanicolaou smear with manual screening 6 5-15 [facility] Work Phone: Whole blood hemoglobin A1c/t otal hemoglobin ratio (mass fraction)on 10-02-2021 HbA1c (Bld) [Mass fraction] 6.0 % 3.8-5.6 [facility] Work Phone: Comment on above: Normal < 5.7 % Predi abetic 5.7 - 6.4 % Diabetic >or= 6.5 % Please note range changes. Absolute lymphocyte counton 10-01-2021 Lymphocytes Auto (Unsp spec) [#/Vol] 1.71 10*3/uL 0.83-4.51 [facility] Work Phone: Basophil percentageon 2021 Basophils/100 WBC (Bld) 0.6 % 0-1 [facility] Work Phone: Chloride [Moles/Vol] 108 mmol/L 98-[facility]: Eosinophils/100 WBC (Bld) 4.5 % 0-5 [facility] Work Phone: Glucose [Mass/Vol] 158 mg/dL 74-106 [facility] Work Phone: Comment on above: Fasting Glucose resu lt greater than or equal to 126 mg/dL suggests DIABETES MELLITUS per A.D.A. criteria. Lactate [Moles/Vol] 1.2 mmol/L 0.4-2.0 [facility]: Neutrophils (Bld) [#/Vol] 9.8 10*3/uL 2.0-7.7 [facility] Work Phone: Neutrophils/100 WBC (Bld) 70.1 % 47-70 [facility] Work Phone: Potassium [Moles/Vol] 4.1 mmol/L 3.5-5.1 [facility] Work Phone: [phone] Sodium [Moles/Vol] 141 mmol/L 136-145 [facility] Work Phone: WBC (Bld) [#/Vol] 13.9 10*3/uL 4.4-11.0 [facility] Work Phone: [phone] Blood erythrocytes count (nu mber/volume)on 10-01-2021 RBC (Bld) [#/Vol] 3.29 10*6/uL 4.6-6.2 [facility] Work Phone: Blood hemoglobin measurement (mass/volume)on 10-01-2021 Hemoglobin (Bld) [Mass/Vol] 8.7 g/dL 13.0-16.5 [facility] Work Phone: Blood lymphocytes/100 leukoc yteson 10-01-2021 Lymphocytes/100 WBC (Bld) 12.3 % 19-41 [facility] Work Phone: Blood monocytes/100 leukocyt eson 10-01-2021 Monocytes/100 WBC (Bld) 11.6 % 0-10 [facility] Work Phone: Blood platelet adequacy dete ction by light microscopyon 10-01-2021 Platelets LM Ql (Bld) ADEQUATE ADEQ [facility] Work [facility]: Blood platelet mean volumeon 10-01-2021 Platelet mean volume (Bld) [Entitic vol] 11.0 fL 6.2-12.0 [facility] Work Phone: Determination of erythrocyte mean corpuscular volume (MCV)on 10-01-2021 MCV (RBC) [Entitic vol] 87.2 fL 80-94 [facility] Work Phone: Hematocrit Auto (Bld) [Volum e fraction]on 10-01-2021 Hematocrit (Bld) [Volume fraction] 28.7 % 40-54 [facility] Work Phone: Laboratory - Chemistry and C hemistry - challengeon 10-01-2021 CO2 [Moles/Vol] 27.0 mmol/L 21.0-32.0 [facility] Work Phone: Natriuretic peptide B (Bld) [Mass/Vol] 244.9 pg/mL 0-100 [facility] Work Phone: Urea nitrogen/Creatinine [Mass ratio] 18.9 mg/mg 10-20 [facility] Work Phone: Laboratory - Hematology and Cell countson 10-01-2021 Erythrocyte distribution width (RBC) [Entitic vol] 49.9 fL 35.1-43.9 [facility] Work Phone: Erythrocyte distribution width (RBC) [Ratio] 15.5 % 11.6-14.6 [facility] Work Phone: Immature granulocytes/100 WBC (Bld) 0.900 % 0.0-0.9 [facility] Work Phone: Comment on above: IG% - Immature Granu locytes (promyelocytes, myelocytes and metamyelocytes) > 1% indicates that a LEFT SHIFT is Present. MCH (RBC) [Entitic mass] 26.4 pg 27.0-32.0 [facility] Work Phone: Nucleated RBC/100 WBC (Bld) [Ratio] 0 % 0-5 [facility] Work Phone: Laboratory - Microbiology an d Antimicrobial susceptibilityon 10-01-2021 SARS-CoV-2 (COVID-19) RNA JUSTIN+probe Ql (Unsp spec) Not detected Not Detect [facility] Work Phone: Comment on above: Normal Reference Ran ge: [...] 10-01-2021 MCHC (RBC) [Mass/Vol] 30.3 g/dL 32-36 [facility] Work Phone: No Panel Informationon 10-01 Estimated Creatinine Clearance Calc 48.05 ml/min [facility] Work Phone: Estimated GFR (MDRD) Amer 60 mL/min >60 [facility] Work Phone: Comment on above: GFR Calc Estimated GFR (MDRD) Non-Af Amer 50 mL/min >60 [facility] Work Phone: Comment on above: Non- GFR Calc Troponin I High Sensitivity 13 pg/mL 3.0-78.0 [facility] Work Phone: Comment on above: Please Note: New Jennifer t Units and Gender Specific Reference Ranges. For more information see Policy Stat Procedure Converse High Sensitivity Troponin (TNIH) and attachments. Platelets bldon 10-01-2021 Platelets (Bld) [#/Vol] 441 10*3/uL 150-450 [facility] Work Phone: RBC morphologyon 10-01-2021 RBC morphology finding Nom (Bld) NORM C+C NORMAL NORM C&C [facility] Work Phone: Review by pathologiston Pathologist review Sohan (Unsp spec) [Interp] Josephine hari [facility] Work Phone: Pathologist review Sohan (Unsp spec) [Interp] Reviewed [facility] Work Phone: Comment on above: Previous reported re sult: Josephine hair Edited by: RGOCARLA on 10/02/21:1304Neutrophilic leukocytosis.Normocytic anemia.Clinical correlation necessary.Mc Urias M.D. 10/02/21 AMENDED REPORT 10/02/21 1304 PATH REV previously reported as: Josephine hair Serum or plasma calcium yocasta urement (mass/volume)on 10-01-2021 Calcium [Mass/Vol] 9.0 mg/dL 8.5-10.1 [facility] Work Phone: Serum or plasma creatinine m easurement (mass/volume)on 10-01-2021 Creatinine [Mass/Vol] 1.48 mg/dL 0.70-1.30 [facility] Work Phone: Comment on above: The validity of the calculated GFR & GFRAA in patients over 70 years has not been determined. Clinical correlation is essential. Serum or plasma urea nitroge n measurement (mass/volume)on 10-01-2021 Urea nitrogen [Mass/Vol] 28 mg/dL 7-18 [facility] Work Phone: Serum procalcitonin measurem enton 10-01-2021 Procalcitonin [Mass/Vol] 0.21 ng/mL 0.00-0.09 [facility] Work Phone: Comment on above: A [...] Papanicolaou smear with manual screening 6 5-15 [facility] Work Phone: Absolute lymphocyte counton 08-07-2021 Lymphocytes Auto (Unsp spec) [#/Vol] 1.59 10*3/uL 0.83-4.51 [facility] Work Phone: Basophil percentageon 2021 Basophils/100 WBC (Bld) 0.2 % 0-1 [facility] Work Phone: Chloride [Moles/Vol] 113 mmol/L 98-107 [facility]: Eosinophils/100 WBC (Bld) 0.7 % 0-5 [facility] Work Phone: Glucose [Mass/Vol] 131 mg/dL 74-106 [facility] Work Phone: Comment on above: Fasting Glucose resu lt greater than or equal to 126 mg/dL suggests DIABETES MELLITUS per A.D.A. criteria. Neutrophils (Bld) [#/Vol] 5.5 10*3/uL 2.0-7.7 [facility] Work Phone: Neutrophils/100 WBC (Bld) 67.5 % 47-70 [facility] Work Phone: Potassium [Moles/Vol] 3.6 mmol/L 3.5-5.1 [facility] Work Phone: Sodium [Moles/Vol] 142 mmol/L 136-145 [facility] Work Phone: WBC (Bld) [#/Vol] 8.1 10*3/uL 4.4-11.0 [facility] Work Phone: Blood erythrocytes count (nu mber/volume)on 08-07-2021 RBC (Bld) [#/Vol] 2.63 10*6/uL 4.6-6.2 [facility] Work Phone: Blood hemoglobin measurement (mass/volume)on 08-07-2021 Hemoglobin (Bld) [Mass/Vol] 8.7 g/dL 13.0-16.5 [facility] Work Phone: Blood lymphocytes/100 leukoc yteson 08-07-2021 Lymphocytes/100 WBC (Bld) 19.6 % 19-41 [facility] Work Phone: Blood monocytes/100 leukocyt eson 08-07-2021 Monocytes/100 WBC (Bld) 11.6 % 0-10 [facility] Work Phone: Blood platelet mean volumeon 08-07-2021 Platelet mean volume (Bld) [Entitic vol] 10.1 fL 6.2-12.0 [facility] Work Phone: Determination of erythrocyte mean corpuscular volume (MCV)on 08-07-2021 MCV (RBC) [Entitic vol] 84.8 fL 80-94 [facility] Work Phone: Glucose Glucometer (BldC) [M ass/Vol]on 08-07-2021 Glucose [Mass/Vol] 146 mg/dL 74-106 [facility] Work Phone: Comment on above: MANAGEMENT OF PATIEN T CARE PER NURSING PROTOCOL Hematocrit Auto (Bld) [Volum e fraction]on 08-07-2021 Hematocrit (Bld) [Volume fraction] 27.3 % 40-54 [facility] Work Phone: Iron measurement (mass/mass) on 08-07-2021 Iron (Unsp spec) [Mass/Mass] 14 ug/dL 65-175 [facility] Work Phone: Laboratory - Chemistry and C hemistry - challengeon 08-07-2021 Cobalamin (Vitamin B12) [Mass/Vol] 1092 pg/mL 211-911 [facility] Work Phone: CO2 [Moles/Vol] 22.0 mmol/L 21.0-32.0 [facility] Work Phone: Urea nitrogen/Creatinine [Mass ratio] 29.4 mg/mg 10-20 [facility] Work Phone: Laboratory - Hematology and Cell countson 08-07-2021 Erythrocyte distribution width (RBC) [Entitic vol] 47.6 fL 35.1-43.9 [facility] Work Phone: Erythrocyte distribution width (RBC) [Ratio] 15.5 % 11.6-14.6 [facility] Work Phone: Immature granulocytes/100 WBC (Bld) 0.400 % 0.0-0.9 [facility] Work Phone: Comment on above: IG% - Immature Granu locytes (promyelocytes, myelocytes and metamyelocytes) > 1% indicates that a LEFT SHIFT is Present. MCH (RBC) [Entitic mass] 26.6 pg 27.0-32.0 [facility] Work Phone: Nucleated RBC/100 WBC (Bld) [Ratio] 0 % 0-5 [facility] Work Phone: MCHC Auto (RBC) [Mass/Vol]on 08-07-2021 MCHC (RBC) [Mass/Vol] 31.4 g/dL 32-36 [facility] Work Phone: No Panel Informationon 08-07 Total Iron Binding Capacity 133 ug/dL 250-450 [facility] Work Phone: Estimated Creatinine Clearance Calc 72.16 ml/min [facility] Work Phone: Estimated GFR (MDRD) Amer 126 mL/min >60 [facility] Work Phone: Comment on above: GFR Calc Estimated GFR (MDRD) Non-Af Amer 104 mL/min >60 [facility] Work Phone: Comment on above: Non- GFR Calc Platelets bldon 08-07-2021 Platelets (Bld) [#/Vol] 206 10*3/uL 150-450 [facility] Work Phone: Serum or plasma calcium yocasta urement (mass/volume)on 08-07-2021 Calcium [Mass/Vol] 5.4 mg/dL 8.5-10.1 [facility] Work Phone: Comment on above: Critical Result(s) C alled at: 06:53:34 08/07/2021 by: Van Foy. Edi Banegas RN (MS3). Results read back by same. Serum or plasma creatinine m easurement (mass/volume)on 08-07-2021 Creatinine [Mass/Vol] 0.78 mg/dL 0.70-1.30 [facility] Work Phone: Comment on above: The validity of the calculated GFR & GFRAA in patients over 70 years has not been determined. Clinical correlation is essential. Serum or plasma ferritin vasquez surement (mass/volume)on 08-07-2021 Ferritin [Mass/Vol] 301 ng/mL 26-388 [facility] Work Phone: Serum or plasma iron saturat ion measurement (mass fraction)on 08-07-2021 Iron saturation [Mass fraction] 10.5 % 15.0-55.0 [facility] Work Phone: Serum or plasma urea nitroge n measurement (mass/volume)on 08-07-2021 Urea nitrogen [Mass/Vol] 23 mg/dL 7-18 [facility] Work Phone: Thin prep Papanicolaou smear with manual screeningon 08-07-2021 Thin prep Papanicolaou smear with manual screening 7 5-15 [facility] Work Phone: Absolute lymphocyte counton 08-06-2021 Lymphocytes Auto (Unsp spec) [#/Vol] 2.34 10*3/uL 0.83-4.51 [facility] Work Phone: Basophil percentageon 2021 Basophil percentage >100 SEEN /hpf 0-5 [facility] Work Phone: Basophils/100 WBC (Bld) 0.4 % 0-1 [facility] Work Phone: Bilirubin [Mass/Vol] 0.50 mg/dL 0.20-1.00 [facility] Work Phone: Comment on above: For patients on eltr ombopag therapy, use of Dimension [place] TBIL is not recommended. Chloride [Moles/Vol] 109 mmol/L 98-107 [facility] Work Phone: Eosinophils/100 WBC (Bld) 4.9 % 0-5 [facility] Work Phone: Glucose [Mass/Vol] 104 mg/dL 74-106 [facility] Work Phone: [phone] Comment on above: Fasting Glucose resu lt from 100 to 125 mg/dL suggests IMPAIRED HOMEOSTASIS per A.D.A. criteria. Neutrophils (Bld) [#/Vol] 5.7 10*3/uL 2.0-7.7 [facility] Work Phone: Neutrophils/100 WBC (Bld) 60.6 % 47-70 [facility] Work Phone: Potassium [Moles/Vol] 3.6 mmol/L 3.5-5.1 [facility] Work Phone: Protein [Mass/Vol] 5.3 g/dL 6.4-8.2 [facility] Work Phone: [phone] Sodium [Moles/Vol] 141 mmol/L 136-145 [facility] Work Phone: WBC (Bld) [#/Vol] 9.4 10*3/uL 4.4-11.0 [facility] Work Phone: Bilirubin Test strip Ql (U)o n 08-06-2021 Bilirubin Ql (U) Negative Negative [facility] Work Phone: Blood erythrocytes count (nu mber/volume)on 08-06-2021 RBC (Bld) [#/Vol] 3.46 10*6/uL 4.6-6.2 [facility] Work Phone: Blood hemoglobin measurement (mass/volume)on 08-06-2021 Hemoglobin (Bld) [Mass/Vol] 9.4 g/dL 13.0-16.5 [facility] Work Phone: Blood lymphocytes/100 leukoc yteson 08-06-2021 Lymphocytes/100 WBC (Bld) 24.8 % 19-41 [facility] Work Phone: Blood monocytes/100 leukocyt eson 08-06-2021 Monocytes/100 WBC (Bld) 8.8 % 0-10 [facility] Work Phone: Blood platelet mean volumeon 08-06-2021 Platelet mean volume (Bld) [Entitic vol] 10.4 fL 6.2-12.0 [facility] Work Phone: Determination of erythrocyte mean corpuscular volume (MCV)on 08-06-2021 MCV (RBC) [Entitic vol] 85.0 fL 80-94 [facility] Work Phone: Direct bilirubinon 2 Bilirubin.direct [Mass/Vol] 0.22 mg/dL 0.00-0.30 [facility] Work Phone: Glucose Glucometer (BldC) [M ass/Vol]on 08-06-2021 Glucose [Mass/Vol] 109 mg/dL 74-106 [facility] Work Phone: Comment on above: MANAGEMENT OF PATIEN T CARE PER NURSING PROTOCOL Hematocrit Auto (Bld) [Volum e fraction]on 08-06-2021 Hematocrit (Bld) [Volume fraction] 29.4 % 40-54 [facility] Work Phone: Ketones Test strip Ql (U)on 08-06-2021 Ketones Ql (U) Negative Negative [facility] Work Phone: Laboratory - Chemistry and C hemistry - challengeon 08-06-2021 ALP [Catalytic activity/Vol] 96 U/L 45-117 [facility] Work Phone: ALT [Catalytic activity/Vol] 14 U/L 16-61 [facility] Work Phone: CO2 [Moles/Vol] 25.0 mmol/L 21.0-32.0 [facility] Work Phone: Globulin (S) [Mass/Vol] 3.1 g/dL 2.2-4.2 [facility] Work Phone: Urea nitrogen/Creatinine [Mass ratio] 20.4 mg/mg 10-20 [facility] Work Phone: Laboratory - Hematology and Cell countson 08-06-2021 Erythrocyte distribution width (RBC) [Entitic vol] 48.0 fL 35.1-43.9 [facility] Work Phone: Erythrocyte distribution width (RBC) [Ratio] 15.5 % 11.6-14.6 [facility] Work Phone: Immature granulocytes/100 WBC (Bld) 0.500 % 0.0-0.9 [facility] Work Phone: Comment on above: IG% - Immature Granu locytes (promyelocytes, myelocytes and metamyelocytes) > 1% indicates that a LEFT SHIFT is Present. MCH (RBC) [Entitic mass] 27.2 pg 27.0-32.0 [facility] Work Phone: Nucleated RBC/100 WBC (Bld) [Ratio] 0 % 0-5 [facility] Work Phone: MCHC Auto (RBC) [Mass/Vol]on 08-06-2021 MCHC (RBC) [Mass/Vol] 32.0 g/dL 32-36 [facility] Work Phone: Mucus LM Ql (Urine sed)on Mucus Ql (Urine sed) 0 SEEN /hpf [facility] Work Phone: Nitrite Test strip Ql (U)on 08-06-2021 Nitrite Ql (U) Negative Negative [facility] Work Phone: No Panel Informationon 08-06 Streptococcus pneumoniae Antigen (M [facility] Work Phone: Respiratory Panel (PCR) Rhinovirus [facility] Work Phone: Ionized Calcium 3.5 mg/dL 4.5-5.6 [facility] Work Phone: Comment on above: Performed at: [place] [id number] Director: Elder Sweet PhD, Phone: [phone] Estimated Creatinine Clearance Calc 66.82 ml/min [facility] Work Phone: Estimated GFR (MDRD) Amer 87 mL/min >60 [facility] Work Phone: Comment on above: GFR Calc Estimated GFR (MDRD) Non-Af Amer 72 mL/min >60 [facility] Work Phone: Comment on above: Non- GFR Calc Platelets bldon 08-06-2021 Platelets (Bld) [#/Vol] 332 10*3/uL 150-450 [facility] Work Phone: Protein Test strip Ql (U)on 08-06-2021 Protein Ql (U) 15 mg/dl Negative [facility] Work Phone: Serum or plasma albumin yocasta urement (mass/volume)on 08-06-2021 Albumin [Mass/Vol] 2.2 g/dL 3.2-5.0 [facility] Work Phone: Serum or plasma calcium yocasta urement (mass/volume)on 08-06-2021 Calcium [Mass/Vol] 6.1 mg/dL 8.5-10.1 [facility] Work Phone: Comment on above: Critical Result(s) C alled at: 13:19:46 08/06/2021 by: Sharyn Woods to Jaspal. Results read back by same. Serum or plasma creatinine m easurement (mass/volume)on 08-06-2021 Creatinine [Mass/Vol] 1.08 mg/dL 0.70-1.30 [facility] Work Phone: Comment on above: The validity of the calculated GFR & GFRAA in patients over 70 years has not been determined. Clinical correlation is essential. Serum or plasma urea nitroge n measurement (mass/volume)on 08-06-2021 Urea nitrogen [Mass/Vol] 22 mg/dL 7-18 [facility] Work Phone: Squamous epithelial cells de tection in urine sediment by light microscopyon 08-06-2021 Epithelial cells.squamous LM Ql (Urine sed) 0-5 SEEN /hpf 0-5 [facility] Work Phone: Thin prep Papanicolaou smear with manual screeningon 08-06-2021 Thin prep Papanicolaou smear with manual screening 17 U/L 15-37 [facility] Work Phone: Thin prep Papanicolaou smear with manual screening 7 5-15 [facility] Work Phone: Urine blood detectionon 07-25 RBC Ql (U) 25 /ul Negative [facility] Work Phone: RBC Ql (U) 5-10 SEEN /hpf 0-5 [facility] Work Phone: Urine clarityon 08-06-2021 Clarity (U) Sl. Cloudy Clear [facility] Work Phone: Urine color determinationon 08-06-2021 Color (U) Yellow Yellow [facility] Work Phone: Urine glucose detectionon Glucose Ql (U) Normal mg/dl Normal [facility] Work Phone: Urine leukocyte esterase det ection by dipstickon 08-06-2021 Leukocyte esterase Test strip Ql (U) 500 /ul Negative [facility] Work Phone: Urine pHon 08-06-2021 pH (U) 6.0 [pH] 5.0 - 8.0 [facility] Work Phone: Urine sediment bacteria coun t by microscopy (number/high power field)on 08-06-2021 Bacteria LM.HPF (Urine sed) [#/Area] 1 /[HPF] None Seen [facility] Work Phone: Urine sediment yeast count b y microscopy (number/high powered field)on 08-06-2021 Yeast LM.HPF (Urine sed) [#/Area] 4 /[HPF] None Seen [facility] Work Phone: Urine specific gravity measu rementon 08-06-2021 Specific gravity (U) [Rel density] 1.015 1.002-1.030 [facility] Work Phone: Urobilinogen Auto test strip Ql (U)on 08-06-2021 Urobilinogen Ql (U) Normal mg/dl Normal [facility] Work Phone: Absolute lymphocyte counton 08-01-2021 Lymphocytes Auto (Unsp spec) [#/Vol] 0.92 10*3/uL 0.83-4.51 [facility] Work Phone: Basophil percentageon 2021 Basophils/100 WBC (Bld) 0.3 % 0-1 [facility] Work Phone: Bilirubin [Mass/Vol] 0.60 mg/dL 0.20-1.00 [facility] Work Phone: Comment on above: For patients on eltr ombopag therapy, use of Dimension [place] TBIL is not recommended. Chloride [Moles/Vol] 106 mmol/L 98-107 [facility] Work Phone: Eosinophils/100 WBC (Bld) 4.0 % 0-5 [facility] Work Phone: Glucose [Mass/Vol] 146 mg/dL 74-106 [facility] Work Phone: Comment on above: Fasting Glucose resu lt greater than or equal to 126 mg/dL suggests DIABETES MELLITUS per A.D.A. criteria. Neutrophils (Bld) [#/Vol] 8.0 10*3/uL 2.0-7.7 [facility] Work Phone: Neutrophils/100 WBC (Bld) 77.1 % 47-70 [facility] Work Phone: Potassium [Moles/Vol] 3.5 mmol/L 3.5-5.1 [facility] Work Phone: Protein [Mass/Vol] 5.4 g/dL 6.4-8.2 [facility] Work Phone: Sodium [Moles/Vol] 141 mmol/L 136-145 [facility] Work Phone: Comment on above: Critical Result(s) C alled at: 16:03:59 08/01/2021 by: Michael Aldana. Results read back by same. WBC (Bld) [#/Vol] 10.4 10*3/uL 4.4-11.0 [facility] Work Phone: Blood erythrocytes count (nu mber/volume)on 08-01-2021 RBC (Bld) [#/Vol] 3.62 10*6/uL 4.6-6.2 [facility] Work Phone: Blood hemoglobin measurement (mass/volume)on 08-01-2021 Hemoglobin (Bld) [Mass/Vol] 9.8 g/dL 13.0-16.5 [facility] Work Phone: Blood lymphocytes/100 leukoc yteson 08-01-2021 Lymphocytes/100 WBC (Bld) 8.9 % 19-41 [facility] Work Phone: Blood monocytes/100 leukocyt eson 08-01-2021 Monocytes/100 WBC (Bld) 7.5 % 0-10 [facility] Work Phone: Blood platelet mean volumeon 08-01-2021 Platelet mean volume (Bld) [Entitic vol] 10.9 fL 6.2-12.0 [facility] Work Phone: Determination of erythrocyte mean corpuscular volume (MCV)on 08-01-2021 MCV (RBC) [Entitic vol] 85.4 fL 80-94 [facility] [facility] Work Phone: Hematocrit Auto (Bld) [Volum e fraction]on 08-01-2021 Hematocrit (Bld) [Volume fraction] 30.9 % 40-54 [facility] Work Phone: Laboratory - Chemistry and C hemistry - challengeon 08-01-2021 ALP [Catalytic activity/Vol] 92 U/L 45-117 [facility] Work Phone: ALT [Catalytic activity/Vol] 19 U/L 16-61 [facility] Work Phone: CO2 [Moles/Vol] 22.0 mmol/L 21.0-32.0 [facility] Work Phone: Globulin (S) [Mass/Vol] 2.9 g/dL 2.2-4.2 [facility] Work Phone: Urea nitrogen/Creatinine [Mass ratio] 20.6 mg/mg 10-20 [facility] Work Phone: Laboratory - Hematology and Cell countson 08-01-2021 Erythrocyte distribution width (RBC) [Entitic vol] 49.0 fL 35.1-43.9 [facility] Work Phone: Erythrocyte distribution width (RBC) [Ratio] 15.6 % 11.6-14.6 [facility] Work Phone: Immature granulocytes/100 WBC (Bld) 2.200 % 0.0-0.9 [facility] Work Phone: Comment on above: IG% - Immature Granu locytes (promyelocytes, myelocytes and metamyelocytes) > 1% indicates that a LEFT SHIFT is Present. MCH (RBC) [Entitic mass] 27.1 pg 27.0-32.0 [facility] Work Phone: Nucleated RBC/100 WBC (Bld) [Ratio] 0 % 0-5 [facility] Work Phone: MCHC Auto (RBC) [Mass/Vol]on 08-01-2021 MCHC (RBC) [Mass/Vol] 31.7 g/dL 32-36 [facility] Work Phone: No Panel Informationon 08-01 Estimated GFR (MDRD) Amer 87 mL/min >60 [facility] Work Phone: Comment on above: GFR Calc Estimated GFR (MDRD) Non-Af Amer 72 mL/min >60 [facility] Work Phone: Comment on above: Non- GFR Calc Platelets bldon 08-01-2021 Platelets (Bld) [#/Vol] 314 10*3/uL 150-450 [facility] Work Phone: Serum or plasma albumin yocasta urement (mass/volume)on 08-01-2021 Albumin [Mass/Vol] 2.5 g/dL 3.2-5.0 [facility] Work Phone: Serum or plasma albumin/glob ulin mass ratioon 08-01-2021 Albumin/Globulin [Mass ratio] 0.9 {ratio} 0.9-2.4 [facility] Work Phone: Serum or plasma calcium yocasta urement (mass/volume)on 08-01-2021 Calcium [Mass/Vol] 6.2 mg/dL 8.5-10.1 [facility] Work Phone: Serum or plasma creatinine m easurement (mass/volume)on 08-01-2021 Creatinine [Mass/Vol] 1.07 mg/dL 0.70-1.30 [facility] Work Phone: Comment on above: The validity of the calculated GFR & GFRAA in patients over 70 years has not been determined. Clinical correlation is essential. Serum or plasma urea nitroge n measurement (mass/volume)on 08-01-2021 Urea nitrogen [Mass/Vol] 22 mg/dL 7-18 [facility] Work Phone: Thin prep Papanicolaou smear with manual screeningon 08-01-2021 Thin prep Papanicolaou smear with manual screening 20 U/L 15-37 [facility] Work Phone: Thin prep Papanicolaou smear with manual screening 13 5-15 [facility] Work Phone: Basophil percentageon 2021 Basophil percentage 104 mg/dL 74-106 [facility] Work Phone: Basophil percentage 141 mmol/L 136-145 [facility] Work Phone: Basophil percentage 4.3 mmol/L 3.5-5.1 [facility] Work Phone: Basophil percentage 110 mmol/L 98-107 [facility] Work Phone: Basophils (Bld) [#/Vol] 6.6 10*3/uL 4.4-11.0 [facility] Work Phone: Chloride [Moles/Vol] 110 mmol/L 98-107 [facility] Work Phone: Glucose [Mass/Vol] 104 mg/dL 74-106 [facility] Work Phone: Comment on above: Fasting Glucose resu lt from 100 to 125 mg/dL suggests IMPAIRED HOMEOSTASIS per A.D.A. criteria. Potassium [Moles/Vol] 4.3 mmol/L 3.5-5.1 [facility] Work Phone: Sodium [Moles/Vol] 141 mmol/L 136-145 [facility] Work Phone: WBC (Bld) [#/Vol] 6.6 10*3/uL 4.4-11.0 [facility] Work Phone: Blood erythrocytes count (nu mber/volume)on 06-15-2021 RBC (Bld) [#/Vol] 3.14 10*6/uL 4.6-6.2 [facility]: Blood hemoglobin measurement (mass/volume)on 06-15-2021 Hemoglobin (Bld) [Mass/Vol] 8.5 g/dL 13.0-16.5 [facility] Work Phone: Blood platelet mean volumeon 06-15-2021 Platelet mean volume (Bld) [Entitic vol] 10.0 fL 6.2-12.0 [facility] Work Phone: Determination of erythrocyte mean corpuscular volume (MCV)on 06-15-2021 MCV (RBC) [Entitic vol] 86.0 fL 80-94 [facility] Work Phone: Hematocrit Auto (Bld) [Volum e fraction]on 06-15-2021 Hematocrit (Bld) [Volume fraction] 27.0 % 40-54 [facility] Work Phone: Laboratory - Chemistry and C hemistry - challengeon 06-15-2021 CO2 [Moles/Vol] 25.0 mmol/L 21.0-32.0 [facility] Work Phone: Urea nitrogen/Creatinine [Mass ratio] 20.2 mg/mg 10-20 [facility] Work Phone: Laboratory - Hematology and Cell countson 06-15-2021 Erythrocyte distribution width (RBC) [Entitic vol] 62.9 fL 35.1-43.9 [facility] Work Phone: Erythrocyte distribution width (RBC) [Ratio] 20.0 % 11.6-14.6 [facility] Work Phone: [phone] MCH (RBC) [Entitic mass] 27.1 pg 27.0-32.0 [facility] Work Phone: MCHC Auto (RBC) [Mass/Vol]on 06-15-2021 MCHC (RBC) [Mass/Vol] 31.5 g/dL 32-36 [facility] Work Phone: No Panel Informationon 06-15 Estimated GFR (MDRD) Amer 90 mL/min >60 [facility] Work Phone: Comment on above: GFR Calc Estimated GFR (MDRD) Non-Af Amer 75 mL/min >60 [facility] Work Phone: Comment on above: Non- GFR Calc 27.1 pg 27.0-32.0 [facility] Work Phone: 20.0 % 11.6-14.6 [facility] Work Phone: 62.9 fl 35.1-43.9 [facility] Work Phone: 75 mL/min >60 [facility] Work Phone: 90 mL/min >60 [facility] Work Phone: 20.2 RATIO 10-20 [facility] Work Phone: 25.0 mmol/L 21.0-32.0 [facility] Work Phone: Platelets bldon 06-15-2021 Platelets (Bld) [#/Vol] 357 10*3/uL 150-450 [facility] Work Phone: Serum or plasma calcium yocasta urement (mass/volume)on 06-15-2021 Calcium [Mass/Vol] 7.6 mg/dL 8.5-10.1 [facility] Work Phone: Serum or plasma creatinine m easurement (mass/volume)on 06-15-2021 Creatinine [Mass/Vol] 1.04 mg/dL 0.70-1.30 [facility] Work Phone: Comment on above: The validity of the calculated GFR & GFRAA in patients over 70 years has not been determined. Clinical correlation is essential. Serum or plasma urea nitroge n measurement (mass/volume)on 06-15-2021 Urea nitrogen [Mass/Vol] 21 mg/dL 7-18 [facility] Work Phone: Thin prep Papanicolaou smear with manual screeningon 06-15-2021 Thin prep Papanicolaou smear with manual screening 6 5-15 [facility] Work Phone: Glucose Glucometer (BldC) [M ass/Vol]on 05-18-2021 Glucose [Mass/Vol] 103 mg/dL 74-106 [facility] Work Phone: Comment on above: MANAGEMENT OF PATIEN T CARE PER NURSING PROTOCOL Absolute lymphocyte counton 05-12-2021 Lymphocytes Auto (Unsp spec) [#/Vol] 1.07 10*3/uL 0.83-4.51 [facility] Work Phone: Basophil percentageon 2021 Basophil percentage Not Reportable [facility] Work Phone: Basophil percentage 112 mg/dL 74-106 [facility] Work Phone: Basophil percentage 142 mmol/L 136-145 [facility] Work Phone: Basophil percentage 3.8 mmol/L 3.5-5.1 [facility] Work Phone: [phone] Basophil percentage 112 mmol/L 98-107 [facility] Work Phone: Basophils (Bld) [#/Vol] 6.7 10*3/uL 4.4-11.0 [facility] Work Phone: [phone] Basophils (Bld) [#/Vol] 4.2 10*3/uL 2.0-7.7 [facility] Work Phone: Chloride [Moles/Vol] 112 mmol/L 98-107 [facility] Work Phone: Glucose [Mass/Vol] 112 mg/dL 74-106 [facility] Work Phone: Comment on above: Fasting Glucose resu lt from 100 to 125 mg/dL suggests IMPAIRED HOMEOSTASIS per A.D.A. criteria. Neutrophils (Bld) [#/Vol] 4.2 10*3/uL 2.0-7.7 [facility] Work Phone: Potassium [Moles/Vol] 3.8 mmol/L 3.5-5.1 [facility]: Sodium [Moles/Vol] 142 mmol/L 136-145 [facility] Work Phone: WBC (Bld) [#/Vol] 6.7 10*3/uL 4.4-11.0 [facility] Work Phone: Blood band neutrophil count as percentage of total leukocyteson 05-12-2021 Band form neutrophils/100 WBC (Bld) 2 % 0-5 [facility] Work Phone: Blood eosinophils/100 leukoc yteson 05-12-2021 Eosinophils/100 WBC (Bld) 3 % 0-5 [facility] Work Phone: Blood erythrocytes count (nu mber/volume)on 05-12-2021 RBC (Bld) [#/Vol] 3.52 10*6/uL 4.6-6.2 [facility] Work Phone: Blood hemoglobin measurement (mass/volume)on 05-12-2021 Hemoglobin (Bld) [Mass/Vol] 9.5 g/dL 13.0-16.5 [facility] Work Phone: Blood lymphocytes/100 leukoc yteson 05-12-2021 Lymphocytes/100 WBC (Bld) 16 % 19-41 [facility] Work Phone: Blood metamyelocytes/100 dangelo kocyteson 05-12-2021 Metamyelocytes/100 WBC (Bld) 4 % 0-1 [facility] Work Phone: Blood monocytes/100 leukocyt eson 05-12-2021 Monocytes/100 WBC (Bld) 10 % 0-10 [facility] Work Phone: Blood platelet adequacy dete ction by light microscopyon 05-12-2021 Platelets LM Ql (Bld) ADEQUATE ADEQ [facility] Work Phone: Blood platelet mean volumeon 05-12-2021 Platelet mean volume (Bld) [Entitic vol] 10.2 fL 6.2-12.0 [facility] Work Phone: Blood segmented neutrophils/ 100 leukocyteson 05-12-2021 Segmented neutrophils/100 WBC (Bld) 61 % 47-70 [facility] Work Phone: Determination of erythrocyte mean corpuscular volume (MCV)on 05-12-2021 MCV (RBC) [Entitic vol] 83.0 fL 80-94 [facility] Work Phone: Hematocrit Auto (Bld) [Volum e fraction]on 05-12-2021 Hematocrit (Bld) [Volume fraction] 29.2 % 40-54 [facility] Work Phone: Laboratory - Chemistry and C hemistry - challengeon 05-12-2021 CO2 [Moles/Vol] 26.0 mmol/L 21.0-32.0 [facility] Work Phone: Urea nitrogen/Creatinine [Mass ratio] 13.8 mg/mg 10-20 [facility] Work Phone: Laboratory - Hematology and Cell countson 05-12-2021 Anisocytosis Ql (Bld) 1+ [facility] Work Phone: Erythrocyte distribution width (RBC) [Entitic vol] 52.5 fL 35.1-43.9 [facility] Work Phone: Erythrocyte distribution width (RBC) [Ratio] 17.8 % 11.6-14.6 [facility] Work Phone: MCH (RBC) [Entitic mass] 27.0 pg 27.0-32.0 [facility] Work Phone: Myelocytes/100 WBC (Bld) 4 % 0-0 [facility] Work Phone: MCHC Auto (RBC) [Mass/Vol]on 05-12-2021 MCHC (RBC) [Mass/Vol] 32.5 g/dL 32-36 [facility] Work Phone: No Panel Informationon 05-12 Estimated Creatinine Clearance Calc 67.91 ml/min [facility] Work Phone: Estimated GFR (MDRD) Amer 80 mL/min >60 [facility] Work Phone: Comment on above: GFR Calc Estimated GFR (MDRD) Non-Af Amer 66 mL/min >60 [facility] Work Phone: [phone] Comment on above: Non- GFR Calc 27.0 pg 27.0-32.0 [facility] Work Phone: 17.8 % 11.6-14.6 [facility] Work Phone: 52.5 fl 35.1-43.9 [facility] Work Phone: 4 % 0-0 [facility] Work Phone: 1+ [facility] Work Phone: 66 mL/min >60 [facility] Work Phone: [phone] 80 mL/min >60 [facility] Work Phone: 67.91 ml/min [facility] Work Phone: 13.8 RATIO 10-20 [facility] Work Phone: 26.0 mmol/L 21.0-32.0 [facility] Work Phone: Platelets bldon 05-12-2021 Platelets (Bld) [#/Vol] 443 10*3/uL 150-450 [facility] Work Phone: Review by pathologiston 04-24 Pathologist review Sohan (Unsp spec) [Interp] Reviewed [facility] Work Phone: Comment on above: Previous reported re sult: Josephine hair Edited by: ROSETTA on 05/14/21:1437Normocytic anemia.Neutrophilic left shift.Clinical correlation necessary.Mc Urias M.D. 05/14/21 AMENDED REPORT 05/14/21 1437 PATH REV previously reported as: June Serum or plasma calcium yocasta urement (mass/volume)on 05-12-2021 Calcium [Mass/Vol] 8.2 mg/dL 8.5-10.1 [facility] Work Phone: Serum or plasma creatinine m easurement (mass/volume)on 05-12-2021 Creatinine [Mass/Vol] 1.16 mg/dL 0.70-1.30 [facility] Work Phone: Comment on above: The validity of the calculated GFR & GFRAA in patients over 70 years has not been determined. Clinical correlation is essential. Serum or plasma urea nitroge n measurement (mass/volume)on 05-12-2021 Urea nitrogen [Mass/Vol] 16 mg/dL 7-18 [facility] Work Phone: Thin prep Papanicolaou smear with manual screeningon 05-12-2021 Thin prep Papanicolaou smear with manual screening 1+ [facility] Work Phone: Thin prep Papanicolaou smear with manual screening 4 5-15 [facility] Work Phone: Total cell counton 2 Cells counted Molgen (Bld/Tiss) [#] 100 MANUAL DIFF [facility] Work Phone: Basophil percentageon 2021 Basophils/100 WBC (Bld) 3.0 % 0-5 [facility] Work Phone: Basophils/100 WBC (Bld) 0.4 % 0-1 [facility] Work Phone: Eosinophils/100 WBC (Bld) 3.0 % 0-5 [facility] Work Phone: Blood lymphocytes/100 leukoc yteson 05-05-2021 Lymphocytes/100 WBC (Bld) 14.8 % 19-41 [facility] Work Phone: Blood monocytes/100 leukocyt eson 05-05-2021 Monocytes/100 WBC (Bld) 10.8 % 0-10 [facility] Work Phone: Laboratory - Hematology and Cell countson 05-05-2021 Immature granulocytes/100 WBC (Bld) 2.800 % 0.0-0.9 [facility] Work Phone: Comment on above: IG% - Immature Granu locytes (promyelocytes, myelocytes and metamyelocytes) > 1% indicates that a LEFT SHIFT is Present. Nucleated RBC/100 WBC (Bld) [Ratio] 0 % 0-5 [facility] Work Phone: [phone] No Panel Informationon 05-05 2.800 % 0.0-0.9 [facility] Work Phone: 0 % 0-5 [facility] Work Phone: Absolute lymphocyte counton 05-04-2021 Lymphocytes Auto (Unsp spec) [#/Vol] 0.59 10*3/uL 0.83-4.51 [facility] Work Phone: Basophil percentageon 2021 Basophils (Bld) [#/Vol] 4.9 10*3/uL 4.4-11.0 [facility] Work Phone: Basophils (Bld) [#/Vol] 3.6 10*3/uL 2.0-7.7 [facility] Work Phone: Basophils/100 WBC (Bld) 72.2 % 47-70 [facility] Work Phone: Basophils/100 WBC (Bld) 3.6 % 0-5 [facility] Work Phone: Basophils/100 WBC (Bld) 0.4 % 0-1 [facility] Work Phone: Eosinophils/100 WBC (Bld) 3.6 % 0-5 [facility] Work Phone: Neutrophils (Bld) [#/Vol] 3.6 10*3/uL 2.0-7.7 [facility] Work Phone: Neutrophils/100 WBC (Bld) 72.2 % 47-70 [facility] Work Phone: WBC (Bld) [#/Vol] 4.9 10*3/uL 4.4-11.0 [facility] Work Phone: Blood erythrocytes count (nu mber/volume)on 05-04-2021 RBC (Bld) [#/Vol] 3.13 10*6/uL 4.6-6.2 [facility] Work Phone: Blood hemoglobin measurement (mass/volume)on 05-04-2021 Hemoglobin (Bld) [Mass/Vol] 8.3 g/dL 13.0-16.5 [facility] Work Phone: Blood lymphocytes/100 leukoc yteson 05-04-2021 Lymphocytes/100 WBC (Bld) 11.9 % 19-41 [facility] Work Phone: Blood manual differential co mment interpretation (narrative result)on 05-04-2021 Manual differential comment Sohan (Bld) [Interp] SCANNED [facility] Work Phone: Blood monocytes/100 leukocyt eson 05-04-2021 Monocytes/100 WBC (Bld) 9.9 % 0-10 [facility] Work Phone: Blood platelet mean volumeon 05-04-2021 Platelet mean volume (Bld) [Entitic vol] 10.0 fL 6.2-12.0 [facility] Work Phone: Determination of erythrocyte mean corpuscular volume (MCV)on 05-04-2021 MCV (RBC) [Entitic vol] 83.4 fL 80-94 [facility] Work Phone: Glucose Glucometer (BldC) [M ass/Vol]on 05-04-2021 Glucose [Mass/Vol] 126 mg/dL 74-106 [facility] Work Phone: Comment on above: MANAGEMENT OF PATIEN T CARE PER NURSING PROTOCOL Gram stain for investigation of transfusion reactionon 05-04-2021 Microscopic observation Gram stain Nom (Unsp spec) [facility] Work Phone: Hematocrit Auto (Bld) [Volum e fraction]on 05-04-2021 Hematocrit (Bld) [Volume fraction] 26.1 % 40-54 [facility] Work Phone: Laboratory - Hematology and Cell countson 05-04-2021 Erythrocyte distribution width (RBC) [Entitic vol] 53.6 fL 35.1-43.9 [facility] Work Phone: Erythrocyte distribution width (RBC) [Ratio] 17.7 % 11.6-14.6 [facility] Work Phone: Immature granulocytes/100 WBC (Bld) 2.000 % 0.0-0.9 [facility] Work Phone: Comment on above: IG% - Immature Granu locytes (promyelocytes, myelocytes and metamyelocytes) > 1% indicates that a LEFT SHIFT is Present. MCH (RBC) [Entitic mass] 26.5 pg 27.0-32.0 [facility] Work Phone: Nucleated RBC/100 WBC (Bld) [Ratio] 0 % 0-5 [facility] Work Phone: MCHC Auto (RBC) [Mass/Vol]on 05-04-2021 MCHC (RBC) [Mass/Vol] 31.8 g/dL 32-36 [facility] Work Phone: No Panel Informationon 05-04 26.5 pg 27.0-32.0 [facility] Work Phone: 17.7 % 11.6-14.6 [facility] Work Phone: [phone] 53.6 fl 35.1-43.9 [facility] Work Phone: 2.000 % 0.0-0.9 [facility] Work Phone: 0 % 0-5 [facility] Work Phone: Platelets bldon 05-04-2021 Platelets (Bld) [#/Vol] 389 10*3/uL 150-450 [facility] Work Phone: Basophil percentageon 2021 Basophil percentage 45 mg/dL 74-106 [facility] Work Phone: Basophil percentage 4.6 g/dL 6.4-8.2 [facility] Work Phone: Basophil percentage 0.30 mg/dL 0.20-1.00 [facility] Work Phone: Basophil percentage 147 mmol/L 136-145 [facility] Work Phone: Basophil percentage 3.2 mmol/L 3.5-5.1 [facility] Work Phone: Basophil percentage 118 mmol/L 98-107 [facility] Work Phone: Bilirubin [Mass/Vol] 0.30 mg/dL 0.20-1.00 [facility] Work Phone: Comment on above: For patients on eltr ombopag therapy, use of Dimension Converse TBIL is not recommended. Chloride [Moles/Vol] 118 mmol/L 98-107 [facility] Work Phone: Glucose [Mass/Vol] 45 mg/dL 74-106 [facility] Work Phone: Comment on above: Glucose result less than 50 mg/dL suggests HYPOGLYCEMIA. Potassium [Moles/Vol] 3.2 mmol/L 3.5-5.1 [facility] Work Phone: Protein [Mass/Vol] 4.6 g/dL 6.4-8.2 [facility] Work Phone: Sodium [Moles/Vol] 147 mmol/L 136-145 [facility] Work Phone: Laboratory - Chemistry and C hemistry - challengeon 05-03-2021 ALP [Catalytic activity/Vol] 55 U/L 45-117 [facility] Work Phone: ALT [Catalytic activity/Vol] 23 U/L 16-61 [facility] Work Phone: CO2 [Moles/Vol] 23.0 mmol/L 21.0-32.0 [facility] Work Phone: Globulin (S) [Mass/Vol] 3.3 g/dL 2.2-4.2 [facility] Work Phone: Urea nitrogen/Creatinine [Mass ratio] 12.6 mg/mg 10-20 [facility] Work Phone: No Panel Informationon 05-03 Estimated Creatinine Clearance Calc 51.82 ml/min [facility] Work Phone: Estimated GFR (MDRD) Amer 67 mL/min >60 [facility] Work Phone: Comment on above: GFR Calc Estimated GFR (MDRD) Non-Af Amer 55 mL/min >60 [facility] Work Phone: Comment on above: Non- GFR Calc 55 mL/min >60 [facility] Work Phone: 67 mL/min >60 [facility] Work Phone: 51.82 ml/min [facility] Work Phone: 12.6 RATIO 10-20 [facility] Work Phone: 3.3 g/dL 2.2-4.2 [facility] Work Phone: 55 U/L 45-117 [facility] Work Phone: 23 U/L 16-61 [facility] Work Phone: 23.0 mmol/L 21.0-32.0 [facility] Work Phone: Serum or plasma albumin yocasta urement (mass/volume)on 05-03-2021 Albumin [Mass/Vol] 1.3 g/dL 3.2-5.0 [facility] Work Phone: Serum or plasma albumin/glob ulin mass ratioon 05-03-2021 Albumin/Globulin [Mass ratio] 0.4 {ratio} 0.9-2.4 [facility] Work Phone: Serum or plasma calcium yocasta urement (mass/volume)on 05-03-2021 Calcium [Mass/Vol] 7.1 mg/dL 8.5-10.1 [facility] Work Phone: Serum or plasma creatinine m easurement (mass/volume)on 05-03-2021 Creatinine [Mass/Vol] 1.35 mg/dL 0.70-1.30 [facility] Work Phone: Comment on above: The validity of the calculated GFR & GFRAA in patients over 70 years has not been determined. Clinical correlation is essential. Serum or plasma urea nitroge n measurement (mass/volume)on 05-03-2021 Urea nitrogen [Mass/Vol] 17 mg/dL 7-18 [facility] Work Phone: Thin prep Papanicolaou smear with manual screeningon 05-03-2021 Thin prep Papanicolaou smear with manual screening 32 U/L 15-37 [facility] Work Phone: Thin prep Papanicolaou smear with manual screening 6 5-15 [facility] Work Phone: Basophil percentageon 2021 Basophil percentage 1.1 mmol/L 0.4-2.0 [facility] Work Phone: Lactate [Moles/Vol] 1.1 mmol/L 0.4-2.0 [facility] Work Phone: Blood santi cells detection b y light microscopyon 05-01-2021 Santi cells LM Ql (Bld) RARE [facility] Work Phone: Hemoglobin in reticulocytes (mass per reticulocyte)on 05-01-2021 Hemoglobin (Reticulocytes) [Entitic mass] 25.1 pg 30-35 [facility] Work Phone: Iron measurement (mass/mass) on 05-01-2021 Iron (Unsp spec) [Mass/Mass] 15 ug/dL 65-175 [facility] Work Phone: Laboratory - Chemistry and C hemistry - challengeon 05-01-2021 Cobalamin (Vitamin B12) [Mass/Vol] 1806 pg/mL 211-911 [facility] Work Phone: Laboratory - Coagulationon 0 05-01-2021 aPTT Coag (Bld) [Time] 72.5 s 24.1-36.2 [facility] Work Phone: Laboratory - Hematology and Cell countson 05-01-2021 Anisocytosis Ql (Bld) 1+ [facility] Work Phone: Laboratory - Microbiology an d Antimicrobial susceptibilityon 05-01-2021 Bacteria identified Cx Nom (Bld) No growth in 5 days. [facility] Work Phone: Lower GI hemoglobin IA Ql (S tl)on 05-01-2021 Stool Occult Blood (FOREST) Positive [facility] Work Phone: Stool gastrointestinal hemoglobin detection by immunologic method Positive [facility] Work Phone: No Panel Informationon 05-01 72.5 Seconds 24.1-36.2 [facility] Work Phone: [facility] 1806 [facility]/mL [facility] Work Phone: [phone] Streptococcus pneumoniae Antigen (M [facility] Work Phone: Immature Reticulocyte Fraction 33.10 % 3.00-15.90 [facility] Work Phone: Reticulocyte Count 1.72 % 0.5-1.5 [facility] Work Phone: Total Iron Binding Capacity 152 ug/dL 250-450 [facility] Work Phone: 1+ [facility] Work Phone: [phone] 1.72 % 0.5-1.5 [facility] Work Phone: [phone] 33.10 % 3.00-15.90 [facility] Work Phone: 152 ug/dL 250-450 [facility] Work Phone: Serum or plasma ferritin vasquez surement (mass/volume)on 05-01-2021 Ferritin [Mass/Vol] 544 ng/mL 26-388 [facility] Work Phone: Serum or plasma iron saturat ion measurement (mass fraction)on 05-01-2021 Iron saturation [Mass fraction] 9.9 % 15.0-55.0 [facility] Work Phone: INR in Blood by Coagulation assayon 04-30-2021 INR Coag (Bld) [Relative time] 2.7 {INR} [facility] Work Phone: Laboratory - Coagulationon 0 04-30-2021 PT Coag (PPP) [Time] 27.9 s 11.7-14.9 [facility] Work Phone: No Panel Informationon 04-30 Methicillin-Resist S.aureus DNA PCR Negative Negative [facility] Work Phone: Negative Negative [facility] Work Phone: 27.9 SECONDS 11.7-14.9 [facility] Work Phone: Vancomycin troughon 05-01-19 22 Vancomycin trough [Mass/Vol] 10.5 ug/mL 5.0-15.0 [facility] Work Phone: Comment on above: VANCOMYCIN STANDARED DRUG THERAPY TROUGH LEVEL: 5.0 - 15.0 mg/L VANCOMYCIN HIGH INTENSITY THERAPY TROUGH LEVEL: 15.0 - 20.0 mg/L High Intensity therapy recommended for serious lifethreatening infections include:- Spcrpujsok-Zbvwsbowazds-Zkfbmwykf (Ventilator/Healtcare Associated)-Sepsis PLEASE CONTACT PHARMACY SERVICES (#[id number]) FOR INTERPRETATIONOF RESULTS. Glucose Glucometer (BldC) [M ass/Vol]on 04-29-2021 Glucose [Mass/Vol] 103 mg/dL 74-106 [facility] Work Phone: Comment on above: MANAGEMENT OF PATIEN T CARE PER NURSING PROTOCOL Laboratory - Chemistry and C hemistry - challengeon 04-29-2021 Natriuretic peptide B (Bld) [Mass/Vol] 65.0 pg/mL 0-100 [facility] Work Phone: No Panel Informationon 04-29 Troponin I High Sensitivity 24 pg/mL 3.0-78.0 [facility] Work Phone: Comment on above: Please Note: New Jennifer t Units and Gender Specific Reference Ranges. For more information see Policy Stat Procedure Converse High Sensitivity Troponin (TNIH) and attachments. 24 pg/mL 3.0-78.0 [facility] Work Phone: 65.0 pg/mL 0-100 [facility] Work Phone: Absolute lymphocyte counton 04-28-2021 Lymphocytes Auto (Unsp spec) [#/Vol] 0.59 10*3/uL 0.83-4.51 [facility] Work Phone: Basophil percentageon 2021 Basophil percentage 86 mg/dL 74-106 [facility] Work Phone: [phone] Basophil percentage 141 mmol/L 136-145 [facility] Work Phone: [phone] Basophil percentage 3.6 mmol/L 3.5-5.1 [facility] [facility] Basophil percentage 110 mmol/L 98-107 [facility] Work Phone: [phone] Basophils (Bld) [#/Vol] 4.6 10*3/uL 4.4-11.0 [facility] Work Phone: Basophils (Bld) [#/Vol] 3.6 10*3/uL 2.0-7.7 [facility] Work Phone: [phone] Basophils/100 WBC (Bld) 77.1 % 47-70 [facility] Work Phone: Basophils/100 WBC (Bld) 1.7 % 0-5 [facility] Work Phone: [phone] Basophils/100 WBC (Bld) 0.2 % 0-1 [facility] Work Phone: Chloride [Moles/Vol] 110 mmol/L 98-[address] [facility] Work Phone: [phone] Eosinophils/100 WBC (Bld) 1.7 % 0-5 [facility] Work Phone: Glucose [Mass/Vol] 86 mg/dL 74-106 [facility] Work Phone: Neutrophils (Bld) [#/Vol] 3.6 10*3/uL 2.0-7.7 [facility] Work Phone: [phone] Neutrophils/100 WBC (Bld) 77.1 % 47-70 [facility] Work Phone: Potassium [Moles/Vol] 3.6 mmol/L 3.5-5.1 [facility]: Sodium [Moles/Vol] 141 mmol/L 136-145 [facility] Work Phone: WBC (Bld) [#/Vol] 4.6 10*3/uL 4.4-11.0 [facility] Work Phone: Blood erythrocytes count (nu mber/volume)on 04-28-2021 RBC (Bld) [#/Vol] 3.73 10*6/uL 4.6-6.2 [facility]: Blood hemoglobin measurement (mass/volume)on 04-28-2021 Hemoglobin (Bld) [Mass/Vol] 9.7 g/dL 13.0-16.5 [facility] Work Phone: Blood lymphocytes/100 leukoc yteson 04-28-2021 Lymphocytes/100 WBC (Bld) 12.8 % 19-41 [facility] Work Phone: Blood monocytes/100 leukocyt eson 04-28-2021 Monocytes/100 WBC (Bld) 7.6 % 0-10 [facility] Work Phone: Blood platelet mean volumeon 04-28-2021 Platelet mean volume (Bld) [Entitic vol] 10.5 fL 6.2-12.0 [facility] Work Phone: Determination of erythrocyte mean corpuscular volume (MCV)on 04-28-2021 MCV (RBC) [Entitic vol] 82.6 fL 80-94 [facility] Work Phone: Hematocrit Auto (Bld) [Volum e fraction]on 04-28-2021 Hematocrit (Bld) [Volume fraction] 30.8 % 40-54 [facility] Work Phone: Laboratory - Chemistry and C hemistry - challengeon 04-28-2021 CO2 [Moles/Vol] 24.0 mmol/L 21.0-32.0 [facility] Work Phone: Urea nitrogen/Creatinine [Mass ratio] 18.7 mg/mg 10-20 [facility] Work Phone: Laboratory - Hematology and Cell countson 04-28-2021 Anisocytosis Ql (Bld) 1+ [facility]: Erythrocyte distribution width (RBC) [Entitic vol] 50.5 fL 35.1-43.9 [facility] Work Phone: Erythrocyte distribution width (RBC) [Ratio] 17.1 % 11.6-14.6 [facility] Work Phone: Immature granulocytes/100 WBC (Bld) 0.600 % 0.0-0.9 [facility] Work Phone: Comment on above: IG% - Immature Granu locytes (promyelocytes, myelocytes and metamyelocytes) > 1% indicates that a LEFT SHIFT is Present. MCH (RBC) [Entitic mass] 26.0 pg 27.0-32.0 [facility] Work Phone: Nucleated RBC/100 WBC (Bld) [Ratio] 0 % 0-5 [facility] Work Phone: Laboratory - Microbiology an d Antimicrobial susceptibilityon 04-28-2021 Bacteria identified Cx Nom (Bld) No growth in 5 days. [facility] Work Phone: MCHC Auto (RBC) [Mass/Vol]on 04-28-2021 MCHC (RBC) [Mass/Vol] 31.5 g/dL 32-36 [facility] Work Phone: No Panel Informationon 04-28 Acanthocytes RARE [facility] Work Phone: Estimated Creatinine Clearance Calc 45.13 ml/min [facility] Work Phone: Estimated GFR (MDRD) Amer 57 mL/min >60 [facility] Work Phone: [phone] Comment on above: GFR Calc Estimated GFR (MDRD) Non-Af Amer 47 mL/min >60 [facility] Work Phone: Comment on above: Non- GFR Calc 26.0 pg 27.0-32.0 [facility] Work Phone: 17.1 % 11.6-14.6 [facility] Work Phone: 50.5 fl 35.1-43.9 [facility] Work Phone: 0.600 % 0.0-0.9 [facility] Work Phone: 0 % 0-5 [facility] Work Phone: 1+ [facility] Work Phone: RARE [facility] Work Phone: 47 mL/min >60 [facility] Work Phone: [phone] 57 mL/min >60 [facility] Work Phone: [phone] 45.13 ml/min [facility] Work Phone: 18.7 RATIO 10-20 [facility] Work Phone: 24.0 mmol/L 21.0-32.0 [facility] Work Phone: [phone] No growth in 5 days. [facility] Work Phone: Ovalocyte detectionon 2021 Ovalocytes LM Ql (Bld) RARE [facility] Work Phone: Platelets bldon 04-28-2021 Platelets (Bld) [#/Vol] 247 10*3/uL 150-450 [facility] Work Phone: Serum or plasma calcium yocasta urement (mass/volume)on 04-28-2021 Calcium [Mass/Vol] 8.9 mg/dL 8.5-10.1 [facility] Work Phone: Serum or plasma creatinine m easurement (mass/volume)on 04-28-2021 Creatinine [Mass/Vol] 1.55 mg/dL 0.70-1.30 [facility] Work Phone: Comment on above: The validity of the calculated GFR & GFRAA in patients over 70 years has not been determined. Clinical correlation is essential. Serum or plasma urea nitroge n measurement (mass/volume)on 04-28-2021 Urea nitrogen [Mass/Vol] 29 mg/dL 7-18 [facility] Work Phone: Thin prep Papanicolaou smear with manual screeningon 04-28-2021 Thin prep Papanicolaou smear with manual screening 7 5-15 [facility] Work Phone: Absolute lymphocyte counton 04-26-2021 Lymphocytes Auto (Unsp spec) [#/Vol] 0.62 10*3/uL 0.83-4.51 [facility] Work Phone: Amorphous sediment detection in urine sediment by light microscopyon 04-26-2021 Amorphous sediment LM Ql (Urine sed) 1+ [facility] Work Phone: Basophil percentageon 2021 Basophil percentage 92 mg/dL 74-106 [facility] Work Phone: Basophil percentage 2.5 mg/dL 2.5-4.9 [facility] Work Phone: Basophil percentage 138 mmol/L 136-145 [facility] Work Phone: Basophil percentage 3.4 mmol/L 3.5-5.1 [facility] Work Phone: Basophil percentage 108 mmol/L 98-107 [facility] Work [facility]: Basophils (Bld) [#/Vol] 5.2 10*3/uL 4.4-11.0 [facility] Work Phone: Basophils (Bld) [#/Vol] 4.0 10*3/uL 2.0-7.7 [facility] Work Phone: Basophils/100 WBC (Bld) 77.3 % 47-70 [facility] Work Phone: Basophils/100 WBC (Bld) 1.3 % 0-5 [facility] Work Phone: Basophils/100 WBC (Bld) 0.2 % 0-1 [facility] Work Phone: Chloride [Moles/Vol] 108 mmol/L 98-107 [facility] Eosinophils/100 WBC (Bld) 1.3 % 0-5 [facility] Work Phone: Glucose [Mass/Vol] 92 mg/dL 74-106 [facility] Work Phone: Neutrophils (Bld) [#/Vol] 4.0 10*3/uL 2.0-7.7 [facility] Work Phone: Neutrophils/100 WBC (Bld) 77.3 % 47-70 [facility] Work Phone: Potassium [Moles/Vol] 3.4 mmol/L 3.5-5.1 [facility] Work Phone: Sodium [Moles/Vol] 138 mmol/L 136-145 [facility] Work Phone: WBC (Bld) [#/Vol] 5.2 10*3/uL 4.4-11.0 [facility] Work Phone: Basophil percentage 0-5 SEEN /hpf [facility] Work Phone: Bilirubin Test strip Ql (U)o n 04-26-2021 Bilirubin Ql (U) Negative Negative [facility] Work Phone: Blood erythrocytes count (nu mber/volume)on 04-26-2021 RBC (Bld) [#/Vol] 3.82 10*6/uL 4.6-6.2 [facility] Work Phone: Blood hemoglobin measurement (mass/volume)on 04-26-2021 Hemoglobin (Bld) [Mass/Vol] 9.5 g/dL 13.0-16.5 [facility] Work Phone: Blood lymphocytes/100 leukoc yteson 04-26-2021 Lymphocytes/100 WBC (Bld) 11.9 % 19-41 [facility] Work Phone: Blood monocytes/100 leukocyt eson 04-26-2021 Monocytes/100 WBC (Bld) 8.5 % 0-10 [facility] Work Phone: Blood platelet mean volumeon 04-26-2021 Platelet mean volume (Bld) [Entitic vol] 10.2 fL 6.2-12.0 [facility] Work Phone: Determination of erythrocyte mean corpuscular volume (MCV)on 04-26-2021 MCV (RBC) [Entitic vol] 80.9 fL 80-94 [facility] Work Phone: Glucose Glucometer (BldC) [M ass/Vol]on 04-26-2021 Glucose [Mass/Vol] 238 mg/dL 74-106 [facility] Work Phone: Comment on above: MANAGEMENT OF PATIEN T CARE PER NURSING PROTOCOL Hematocrit Auto (Bld) [Volum e fraction]on 04-26-2021 Hematocrit (Bld) [Volume fraction] 30.9 % 40-54 [facility] Work Phone: Ketones Test strip Ql (U)on 04-26-2021 Ketones Ql (U) Negative Negative [facility] Work Phone: Laboratory - Chemistry and C hemistry - challengeon 04-26-2021 CO2 [Moles/Vol] 26.0 mmol/L 21.0-32.0 [facility] Work Phone: Magnesium [Mass/Vol] 1.6 mg/dL 1.6-2.6 [facility] Work Phone: Urea nitrogen/Creatinine [Mass ratio] 16.3 mg/mg 10-20 [facility] Work Phone: Laboratory - Hematology and Cell countson 04-26-2021 Erythrocyte distribution width (RBC) [Entitic vol] 48.0 fL 35.1-43.9 [facility] Work Phone: Erythrocyte distribution width (RBC) [Ratio] 16.5 % 11.6-14.6 [facility] Work Phone: Immature granulocytes/100 WBC (Bld) 0.800 % 0.0-0.9 [facility] Work Phone: Comment on above: IG% - Immature Granu locytes (promyelocytes, myelocytes and metamyelocytes) > 1% indicates that a LEFT SHIFT is Present. MCH (RBC) [Entitic mass] 24.9 pg 27.0-32.0 [facility] Work Phone: Nucleated RBC/100 WBC (Bld) [Ratio] 0 % 0-5 [facility] Work Phone: MCHC Auto (RBC) [Mass/Vol]on 04-26-2021 MCHC (RBC) [Mass/Vol] 30.7 g/dL 32-36 [facility] Work Phone: Comment on above: Delta: 32.4 on 04/25-0550 Mucus LM Ql (Urine sed)on Mucus Ql (Urine sed) 0 SEEN /hpf [facility] Work Phone: Nitrite Test strip Ql (U)on 04-26-2021 Nitrite Ql (U) Negative Negative [facility] Work Phone: No Panel Informationon 04-26 Estimated Creatinine Clearance Calc 51.82 ml/min [facility] Work Phone: Estimated GFR (MDRD) Amer 67 mL/min >60 [facility] Work Phone: Comment on above: GFR Calc Estimated GFR (MDRD) Non-Af Amer 55 mL/min >60 [facility] Work Phone: Comment on above: Non- GFR Calc 24.9 pg 27.0-32.0 [facility] Work Phone: 16.5 % 11.6-14.6 [facility] Work Phone: 48.0 fl 35.1-43.9 [facility] Work Phone: 0.800 % 0.0-0.9 [facility] Work Phone: 0 % 0-5 [facility] Work Phone: 55 mL/min >60 [facility] Work Phone: 67 mL/min >60 [facility] Work Phone: 51.82 ml/min [facility] Work Phone: 16.3 RATIO 10-20 [facility] Work Phone: 1.6 mg/dL 1.6-2.6 [facility] Work Phone: 26.0 mmol/L 21.0-32.0 [facility] Work Phone: Platelets bldon 04-26-2021 Platelets (Bld) [#/Vol] 190 10*3/uL 150-450 [facility] Work Phone: Protein Test strip Ql (U)on 04-26-2021 Protein Ql (U) 30 mg/dl Negative [facility] Work Phone: Serum or plasma calcium yocasta urement (mass/volume)on 04-26-2021 Calcium [Mass/Vol] 7.8 mg/dL 8.5-10.1 [facility] Work Phone: Serum or plasma creatinine m easurement (mass/volume)on 04-26-2021 Creatinine [Mass/Vol] 1.35 mg/dL 0.70-1.30 [facility] Work Phone: Comment on above: The validity of the calculated GFR & GFRAA in patients over 70 years has not been determined. Clinical correlation is essential. Serum or plasma urea nitroge n measurement (mass/volume)on 04-26-2021 Urea nitrogen [Mass/Vol] 22 mg/dL 7-18 [facility] Work Phone: Squamous epithelial cells de tection in urine sediment by light microscopyon 04-26-2021 Epithelial cells.squamous LM Ql (Urine sed) 0 SEEN /hpf [facility] Work Phone: Thin prep Papanicolaou smear with manual screeningon 04-26-2021 Thin prep Papanicolaou smear with manual screening 4 5-15 [facility] Work Phone: Urine blood detectionon RBC Ql (U) 25 /ul Negative [facility] Work Phone: RBC Ql (U) 0-5 SEEN /hpf [facility] Work Phone: Urine clarityon 04-26-2021 Clarity (U) Clear Clear [facility] Work Phone: Urine color determinationon 04-26-2021 Color (U) Yellow Yellow [facility] Work Phone: Urine glucose detectionon Glucose Ql (U) Normal mg/dl Normal [facility] Work Phone: Urine leukocyte esterase det ection by dipstickon 04-26-2021 Leukocyte esterase Test strip Ql (U) Negative Negative [facility] Work Phone: Urine pHon 04-26-2021 pH (U) 6.0 [pH] [facility] Work Phone: Urine sediment bacteria coun t by microscopy (number/high power field)on 04-26-2021 Bacteria LM.HPF (Urine sed) [#/Area] 2 /[HPF] None Seen [facility] Work Phone: Urine sediment yeast count b y microscopy (number/high powered field)on 04-26-2021 Yeast LM.HPF (Urine sed) [#/Area] 2 /[HPF] None Seen [facility] Work Phone: Urine specific gravity measu rementon 04-26-2021 Specific gravity (U) [Rel density] 1.010 [facility] Work Phone: Urobilinogen Auto test strip Ql (U)on 04-26-2021 Urobilinogen Ql (U) Normal mg/dl Normal [facility] Work Phone: Blood manual differential co mment interpretation (narrative result)on 04-25-2021 Manual differential comment Sohan (Bld) [Interp] SCANNED [facility] Work Phone: Comment on above: LYMPHOPENIA NOTED Serum or plasma vancomycin m easurement (mass/volume)on 04-25-2021 Vancomycin [Mass/Vol] 17.8 ug/mL 0.0-15.0 [facility] Work Phone: Comment on above: VANCOMYCIN STANDARD DRUG THERAPY: CRITICAL VALUE IS > 15.0 mg/L VANCOMYCIN HIGH INTENSITY THERAPY: CRITICAL VALUE IS > 20.0 mg/L PLEASE CONTACT PHARMACY SERVICES (#[id number]) FOR INTERPRETATIONOF RESULTS. THIS RESULT DOES NOT REPRESENT A PEAK OR TROUGHLEVEL FOR THIS DRUG. Vancomycin troughon 04-23-19 Vancomycin trough [Mass/Vol] 21.6 ug/mL 5.0-15.0 [facility] Work Phone: Comment on above: VANCOMYCIN STANDARED DRUG THERAPY TROUGH LEVEL: 5.0 - 15.0 mg/L VANCOMYCIN HIGH INTENSITY THERAPY TROUGH LEVEL: 15.0 - 20.0 mg/L High Intensity therapy recommended for serious lifethreatening infections include:- Clqpcqotdw-Fkteyahmsghz-Wyfxnqhdm (Ventilator/Healtcare Associated)-Sepsis PLEASE CONTACT PHARMACY SERVICES (#[id number]) FOR INTERPRETATIONOF RESULTS. Basophil percentageon 2021 Basophil percentage 5.1 g/dL 6.4-8.2 [facility] Work Phone: Basophil percentage 0.70 mg/dL 0.20-1.00 [facility] Work Phone: Bilirubin [Mass/Vol] 0.70 mg/dL 0.20-1.00 [facility] Work Phone: Comment on above: For patients on eltr ombopag therapy, use of Dimension Converse TBIL is not recommended. Protein [Mass/Vol] 5.1 g/dL 6.4-8.2 [facility] Work Phone: [phone] Laboratory - Chemistry and C hemistry - challengeon 04-22-2021 Natriuretic peptide B (Bld) [Mass/Vol] 80.0 pg/mL 0-100 [facility] Work Phone: ALP [Catalytic activity/Vol] 63 U/L 45-117 [facility] Work Phone: ALT [Catalytic activity/Vol] 22 U/L 16-61 [facility] Work Phone: Globulin (S) [Mass/Vol] 3.1 g/dL 2.2-4.2 [facility] Work Phone: Laboratory - Microbiology an d Antimicrobial susceptibilityon 04-22-2021 Bacteria identified Cx Nom (Bld) No growth in 5 days. [facility] Work Phone: No Panel Informationon 04-22 Troponin I High Sensitivity 20 pg/mL 3.0-78.0 [facility] Work Phone: [phone] Comment on above: Please Note: New Jennifer t Units and Gender Specific Reference Ranges. For more information see Policy Stat Procedure Converse High Sensitivity Troponin (TNIH) and attachments. 20 pg/mL 3.0-78.0 [facility] Work Phone: [phone] 80.0 pg/mL 0-100 [facility] Work Phone: No growth in 5 days. [facility] Work Phone: 3.1 g/dL 2.2-4.2 [facility] Work Phone: [phone] 63 U/L 45-117 [facility] Work Phone: [phone] 22 U/L 16-61 [facility] Work Phone: Serum or plasma albumin yocasta urement (mass/volume)on 04-22-2021 Albumin [Mass/Vol] 2.0 g/dL 3.2-5.0 [facility] Work Phone: Serum or plasma albumin/glob ulin mass ratioon 04-22-2021 Albumin/Globulin [Mass ratio] 0.6 {ratio} 0.9-2.4 [facility] Work Phone: Serum procalcitonin measurem enton 04-22-2021 Procalcitonin [Mass/Vol] 0.13 ng/mL 0.00-0.09 [facility] Work Phone: Comment on above: A [...] smear with manual screening 15 U/L 15-37 [facility] Work Phone: Bacteria identified Cx Nom ( U)on 04-21-2021 Culture, urine Yeast, not Elisha albicans [facility] Work Phone: Culture, urine Positive [facility] Work Phone: [phone] Blood platelet adequacy dete ction by light microscopyon 04-21-2021 Platelets LM Ql (Bld) [facility]: Culture, urineon 04-21-2021 Bacteria identified Cx Nom (U) Yeast, not Elisha albicans [facility] Work Phone: Bacteria identified Cx Nom (U) Positive [facility] Work Phone: [phone] RBC morphologyon 04-21-2021 RBC morphology finding Nom (Bld) NORM C+C NORMAL NORM C&C [facility] Work Phone: [phone] Absolute lymphocyte counton 04-11-2021 Lymphocytes Auto (Unsp spec) [#/Vol] 0.50 10*3/uL 0.83-4.51 [facility] Work Phone: Basophil percentageon 2021 Basophil percentage 171 mg/dL 74-106 [facility] Work Phone: [phone] Basophil percentage 5.8 g/dL 6.4-8.2 [facility] Work Phone: [phone] Basophil percentage 0.30 mg/dL 0.20-1.00 [facility] Work Phone: [phone] Basophil percentage 135 mmol/L 136-145 [facility] Work Phone: [phone] Basophil percentage 3.8 mmol/L 3.5-5.1 [facility] Work Phone: [phone] Basophil percentage 103 mmol/L 98-107 [facility] Work Phone: [phone] Basophils (Bld) [#/Vol] 6.9 10*3/uL 4.4-11.0 [facility] Work Phone: Basophils (Bld) [#/Vol] 5.7 10*3/uL 2.0-7.7 [facility] Work Phone: [phone] Basophils/100 WBC (Bld) 83.4 % 47-70 [facility] Work Phone: Basophils/100 WBC (Bld) 0.1 % 0-5 [facility] Work Phone: [phone] Basophils/100 WBC (Bld) 0.3 % 0-1 [facility] Work Phone: Bilirubin [Mass/Vol] 0.30 mg/dL 0.20-1.00 [facility] Work Phone: Comment on above: For patients on eltr ombopag therapy, use of Dimension Converse TBIL is not recommended. Chloride [Moles/Vol] 103 mmol/L 98-107 [facility] Work Phone: Eosinophils/100 WBC (Bld) 0.1 % 0-5 [facility] Work Phone: Glucose [Mass/Vol] 171 mg/dL 74-106 [facility] Work Phone: [phone] Comment on above: Fasting Glucose resu lt greater than or equal to 126 mg/dL suggests DIABETES MELLITUS per A.D.A. criteria. Neutrophils (Bld) [#/Vol] 5.7 10*3/uL 2.0-7.7 [facility] Work Phone: [phone] Neutrophils/100 WBC (Bld) 83.4 % 47-70 [facility] Work Phone: [phone] Potassium [Moles/Vol] 3.8 mmol/L 3.5-5.1 [facility] Work Phone: Protein [Mass/Vol] 5.8 g/dL 6.4-8.2 [facility] Work Phone: Sodium [Moles/Vol] 135 mmol/L 136-145 [facility] Work Phone: [phone] WBC (Bld) [#/Vol] 6.9 10*3/uL 4.4-11.0 [facility] Work Phone: [phone] Blood erythrocytes count (nu mber/volume)on 04-11-2021 RBC (Bld) [#/Vol] 3.99 10*6/uL 4.6-6.2 [facility] Work Phone: Blood hemoglobin measurement (mass/volume)on 04-11-2021 Hemoglobin (Bld) [Mass/Vol] 10.2 g/dL 13.0-16.5 [facility] Work Phone: Blood lymphocytes/100 leukoc yteson 04-11-2021 Lymphocytes/100 WBC (Bld) 7.3 % 19-41 [facility] Work Phone: Blood manual differential co mment interpretation (narrative result)on 04-11-2021 Manual differential comment Sohan (Bld) [Interp] SCANNED [facility] Work Phone: Comment on above: LYMPHOPENIA NOTED Blood monocytes/100 leukocyt eson 04-11-2021 Monocytes/100 WBC (Bld) 7.7 % 0-10 [facility] Work Phone: Blood platelet mean volumeon 04-11-2021 Platelet mean volume (Bld) [Entitic vol] 11.3 fL 6.2-12.0 [facility] Work Phone: Determination of erythrocyte mean corpuscular volume (MCV)on 04-11-2021 MCV (RBC) [Entitic vol] 75.9 fL 80-94 [facility] Work Phone: Glucose Glucometer (BldC) [M ass/Vol]on 04-11-2021 Glucose [Mass/Vol] 162 mg/dL 70-110 [facility] Work Phone: Comment on above: MANAGEMENT OF PATIEN T CARE PER NURSING PROTOCOL Hematocrit Auto (Bld) [Volum e fraction]on 04-11-2021 Hematocrit (Bld) [Volume fraction] 30.3 % 40-54 [facility] Work Phone: Laboratory - Chemistry and C hemistry - challengeon 04-11-2021 ALP [Catalytic activity/Vol] 62 U/L 45-117 [facility] Work Phone: ALT [Catalytic activity/Vol] 29 U/L 16-61 [facility] Work Phone: CO2 [Moles/Vol] 24.0 mmol/L 21.0-32.0 [facility] Work Phone: Globulin (S) [Mass/Vol] 3.5 g/dL 2.2-4.2 [facility] Work Phone: Magnesium [Mass/Vol] 1.8 mg/dL 1.6-2.6 [facility] Work Phone: Urea nitrogen/Creatinine [Mass ratio] 33.3 mg/mg 10-20 [facility] Work Phone: Laboratory - Hematology and Cell countson 04-11-2021 Erythrocyte distribution width (RBC) [Entitic vol] 43.0 fL 35.1-43.9 [facility] Work Phone: Erythrocyte distribution width (RBC) [Ratio] 15.9 % 11.6-14.6 [facility] Work Phone: Immature granulocytes/100 WBC (Bld) 1.200 % 0.0-0.9 [facility] Work Phone: Comment on above: IG% - Immature Granu locytes (promyelocytes, myelocytes and metamyelocytes) > 1% indicates that a LEFT SHIFT is Present. MCH (RBC) [Entitic mass] 25.6 pg 27.0-32.0 [facility] Work Phone: Nucleated RBC/100 WBC (Bld) [Ratio] 0 % 0-5 [facility] Work Phone: MCHC Auto (RBC) [Mass/Vol]on 04-11-2021 MCHC (RBC) [Mass/Vol] 33.7 g/dL 32-36 [facility] Work Phone: No Panel Informationon 04-11 Estimated Creatinine Clearance Calc 86.37 ml/min [facility] Work Phone: Estimated GFR (MDRD) Amer 121 mL/min >60 [facility] Work Phone: Comment on above: GFR Calc Estimated GFR (MDRD) Non-Af Amer 100 mL/min >60 [facility] Work Phone: Comment on above: Non- GFR Calc 25.6 pg 27.0-32.0 [facility] Work Phone: 15.9 % 11.6-14.6 [facility] Work Phone: 43.0 fl 35.1-43.9 [facility] Work Phone: 1.200 % 0.0-0.9 [facility] Work Phone: 0 % 0-5 [facility] Work Phone: 100 mL/min >60 [facility] Work Phone: 121 mL/min >60 [facility] Work Phone: 86.37 ml/min [facility] Work Phone: 33.3 RATIO 10-20 [facility] Work Phone: [phone] 3.5 g/dL 2.2-4.2 [facility] Work Phone: [phone] 62 U/L 45-117 [facility] Work Phone: [phone] 29 U/L 16-61 [facility] Work Phone: [phone] 1.8 mg/dL 1.6-2.6 [facility] Work Phone: [phone] 24.0 mmol/L 21.0-32.0 [facility] Work Phone: [phone] Platelets bldon 04-11-2021 Platelets (Bld) [#/Vol] 295 10*3/uL 150-450 [facility] Work Phone: [phone] Serum or plasma albumin yocasta urement (mass/volume)on 04-11-2021 Albumin [Mass/Vol] 2.3 g/dL 3.2-5.0 [facility] Work Phone: [phone] Serum or plasma albumin/glob ulin mass ratioon 04-11-2021 Albumin/Globulin [Mass ratio] 0.7 {ratio} 0.9-2.4 [facility] Work Phone: [phone] Serum or plasma calcium yocasta urement (mass/volume)on 04-11-2021 Calcium [Mass/Vol] 8.2 mg/dL 8.5-10.1 [facility] Work Phone: Serum or plasma creatinine m easurement (mass/volume)on 04-11-2021 Creatinine [Mass/Vol] 0.81 mg/dL 0.70-1.30 [facility] Work Phone: Comment on above: The validity of the calculated GFR & GFRAA in patients over 70 years has not been determined. Clinical correlation is essential. Serum or plasma urea nitroge n measurement (mass/volume)on 04-11-2021 Urea nitrogen [Mass/Vol] 27 mg/dL 7-18 [facility] Work Phone: Thin prep Papanicolaou smear with manual screeningon 04-11-2021 Thin prep Papanicolaou smear with manual screening 14 U/L 15-37 [facility] Work Phone: Thin prep Papanicolaou smear with manual screening 8 5-15 [facility] Work Phone: Review by pathologiston 03-27 Pathologist review Sohan (Unsp spec) [Interp] Reviewed [facility] Work Phone: Comment on above: Previous reported re sult: June laxmi Edited by: RGOOD on 04/11/21:0941LymphopeniaMicrocytic anemia.Clinical correlation suggested.Andrea Porter D.O. 04/11/21 AMENDED REPORT 04/11/21 0941 PATH REV previously reported as: Josephine hair Bronchoalveolar lavage cultu re with Gram stainon 04-09-2021 Respiratory microbial culture or Staphylococcus aureus isolated. [facility] Work Phone: Gram stain for investigation of transfusion reactionon 04-09-2021 Microscopic observation Gram stain Nom (Unsp spec) [facility] Work Phone: Assessment of wrist artery p atency prior to arterial punctureon 04-08-2021 Arterial patency Wrist artery --pre arterial puncture Positive [facility] Work Phone: Base excesson 04-08-2021 Base excess Calc (BldV) [Moles/Vol] 0 mmol/L -2-2 [facility] Work Phone: Basophil percentageon 2021 Basophil percentage 2.2 mmol/L 0.4-2.0 [facility] Work Phone: Lactate [Moles/Vol] 2.2 mmol/L 0.4-2.0 [facility] Work Phone: Basophil percentage 23.5 mmol/L 22-26 [facility] Work Phone: Basophils/100 WBC (Bld) 90 % 95-99 [facility] Work Phone: Basophil percentage 0 SEEN /hpf [facility] Work Phone: Bilirubin Test strip Ql (U)o n 04-08-2021 Bilirubin Ql (U) Negative Negative [facility] Work Phone: CO2 (BldA) [Partial pressure ]on 04-08-2021 CO2 (Bld) [Partial pressure] 32.0 mm[Hg] 35-45 [facility] Work Phone: Ketones Test strip Ql (U)on 04-08-2021 Ketones Ql (U) Negative Negative [facility] Work Phone: Laboratory - Microbiology an d Antimicrobial susceptibilityon 04-08-2021 Bacteria identified Cx Nom (Bld) No growth in 5 days. [facility] Work Phone: Mucus LM Ql (Urine sed)on Mucus Ql (Urine sed) 0 SEEN /hpf [facility] Work Phone: Nitrite Test strip Ql (U)on 04-08-2021 Nitrite Ql (U) Negative Negative [facility] Work Phone: No Panel Informationon 04-08 Blood Gas Liter Flow 5.0 /min [facility] Work Phone: Blood Gas Sample Site L Radial [facility] Work Phone: Blood Gas Specimen Type ART [facility] Work Phone: Blood Gas Total CO2 25 mmol/L [facility] Work Phone: Oxygen Delivery Device Cannula [facility] Work Phone: ART [facility] Work Phone: L Radial [facility] Work Phone: Cannula [facility] Work Phone: 5.0 /min [facility] Work Phone: 25 mmol/L [facility] Work Phone: D-Dimer Quantitative (PE/DVT) 6.86 FEU/ug/m 0.27-0.49 [facility] Work Phone: Comment on above: D-Dimer ELEVATED (>0 .49): Additional studies and clinicalassessments are indicated to conclude diagnosis of:Deep Vein Thrombosis (DVT) or Pulmonary Embolism (PE)CRITICAL VALUE VERIFIED. CALLED TO TARAH HARRIS04/08/21 1414 Luz Fortune.RESULTS READ BACK BY SAME . Troponin I High Sensitivity 16 pg/mL 3.0-78.0 [facility] Work Phone: Comment on above: Please Note: New Jennifer t Units and Gender Specific Reference Ranges. For more information see Policy Stat Procedure [place] High Sensitivity Troponin (TNIH) and attachments. 6.86 FEU/ug/m 0.27-0.49 [facility] Work Phone: 16 pg/mL 3.0-78.0 [facility] Work Phone: No [facility] Oxygen (BldA) [Partial press ure]on 04-08-2021 Oxygen (Bld) [Partial pressure] 55 mmHG 75-100 [facility] Work Phone: Protein Test strip Ql (U)on 04-08-2021 Protein Ql (U) 30 mg/dl Negative [facility] Work Phone: Squamous epithelial cells de tection in urine sediment by light microscopyon 04-08-2021 Epithelial cells.squamous LM Ql (Urine sed) 0-5 SEEN /hpf [facility] Work Phone: Urine blood detectionon 03-27 RBC Ql (U) 10 /ul Negative [facility] Work Phone: RBC Ql (U) 0-5 SEEN /hpf [facility] Work Phone: Urine clarityon 04-08-2021 Clarity (U) Clear Clear [facility] Work Phone: Urine color determinationon 04-08-2021 Color (U) Yellow Yellow [facility] Work Phone: Urine glucose detectionon Glucose Ql (U) 250 mg/dl Normal [facility] Work Phone: Urine leukocyte esterase det ection by dipstickon 04-08-2021 Leukocyte esterase Test strip Ql (U) Negative Negative [facility] Work Phone: Urine pHon 04-08-2021 pH (U) 6.0 [pH] [facility] Work Phone: Urine sediment bacteria coun t by microscopy (number/high power field)on 04-08-2021 Bacteria LM.HPF (Urine sed) [#/Area] RARE /hpf None Seen [facility] Work Phone: Urine specific gravity measu rementon 04-08-2021 Specific gravity (U) [Rel density] 1.015 [facility] Work Phone: Urobilinogen Auto test strip Ql (U)on 04-08-2021 Urobilinogen Ql (U) Normal mg/dl Normal [facility] Work Phone: pH measurementon 04-08-2021 pH (Unsp spec) 7.47 [pH] 7.35-7.45 [facility] Work Phone: Absolute lymphocyte counton 04-05-2021 Lymphocytes Auto (Unsp spec) [#/Vol] 1.16 10*3/uL 0.83-4.51 [facility] Work Phone: Basophil percentageon 2021 Basophil percentage 418 mg/dL 74-106 [facility] Work Phone: Basophil percentage 6.5 g/dL 6.4-8.2 [facility] Work Phone: Basophil percentage 0.60 mg/dL 0.20-1.00 [facility] Work Phone: [phone] Basophil percentage 135 mmol/L 136-145 [facility] Work Phone: [phone] Basophil percentage 3.8 mmol/L 3.5-5.1 [facility]: Basophil percentage 104 mmol/L 98-107 [facility] Work Phone: [phone] Basophils (Bld) [#/Vol] 3.7 10*3/uL 4.4-11.0 [facility] Work Phone: Basophils (Bld) [#/Vol] 2.2 10*3/uL 2.0-7.7 [facility] Work Phone: Basophils/100 WBC (Bld) 60.8 % 47-70 [facility] Work Phone: [phone] Basophils/100 WBC (Bld) 0.0 % 0-1 [facility] Work Phone: Blood erythrocytes count (nu mber/volume)on 04-05-2021 RBC (Bld) [#/Vol] 3.96 10*6/uL 4.6-6.2 [facility] Work Phone: Blood hemoglobin measurement (mass/volume)on 04-05-2021 Hemoglobin (Bld) [Mass/Vol] 10.3 g/dL 13.0-16.5 [facility] Work Phone: [phone] Blood lymphocytes/100 leukoc yteson 04-05-2021 Lymphocytes/100 WBC (Bld) 31.4 % 19-41 [facility] Work Phone: [phone] Blood monocytes/100 leukocyt eson 04-05-2021 Monocytes/100 WBC (Bld) 7.3 % 0-10 [facility] Work Phone: Blood platelet mean volumeon 04-05-2021 Platelet mean volume (Bld) [Entitic vol] 11.4 fL 6.2-12.0 [facility] Work Phone: Determination of erythrocyte mean corpuscular volume (MCV)on 04-05-2021 MCV (RBC) [Entitic vol] 82.3 fL 80-94 [facility] Work Phone: [phone] Hematocrit Auto (Bld) [Volum e fraction]on 04-05-2021 Hematocrit (Bld) [Volume fraction] 32.6 % 40-54 [facility] Work Phone: MCHC Auto (RBC) [Mass/Vol]on 04-05-2021 MCHC (RBC) [Mass/Vol] 31.6 g/dL 32-36 [facility] Work [facility]: No Panel Informationon 04-05 26.0 pg 27.0-32.0 [facility] Work Phone: 15.7 % 11.6-14.6 [facility] Work Phone: 47.4 fl 35.1-43.9 [facility] Work Phone: 0.500 % 0.0-0.9 [facility] Work Phone: 0 % 0-5 [facility] Work Phone: 61 mL/min >60 [facility] Work Phone: 74 mL/min >60 [facility] Work Phone: 32.3 RATIO 10-20 [facility] Work Phone: [phone] 3.9 g/dL 2.2-4.2 [facility] Work Phone: 69 U/L 45-117 [facility] Work Phone: 36 U/L 16-61 [facility] Work Phone: [phone] 21.0 mmol/L 21.0-32.0 [facility] Work Phone: Platelets bldon 04-05-2021 Platelets (Bld) [#/Vol] 195 10*3/uL 150-450 [facility] Work Phone: Serum or plasma albumin yocasta urement (mass/volume)on 04-05-2021 Albumin [Mass/Vol] 2.6 g/dL 3.2-5.0 [facility] Work Phone: Serum or plasma albumin/glob ulin mass ratioon 04-05-2021 Albumin/Globulin [Mass ratio] 0.7 {ratio} 0.9-2.4 [facility] Work Phone: Serum or plasma calcium yocasta urement (mass/volume)on 04-05-2021 Calcium [Mass/Vol] 8.8 mg/dL 8.5-10.1 [facility] Work Phone: Serum or plasma creatinine m easurement (mass/volume)on 04-05-2021 Creatinine [Mass/Vol] 1.24 mg/dL 0.70-1.30 [facility] Work Phone: Serum or plasma urea nitroge n measurement (mass/volume)on 04-05-2021 Urea nitrogen [Mass/Vol] 40 mg/dL 7-18 [facility] Work Phone: Thin prep Papanicolaou smear with manual screeningon 04-05-2021 Thin prep Papanicolaou smear with manual screening 26 U/L 15-37 [facility] Work Phone: Thin prep Papanicolaou smear with manual screening 10 5-15 [facility] Work Phone: Absolute lymphocyte counton 03-25-2021 Lymphocytes Auto (Unsp spec) [#/Vol] 0.90 10*3/uL 0.83-4.51 [facility] Work Phone: Basophil percentageon 2021 Basophil percentage 252 mg/dL 74-106 [facility] Work Phone: Basophil percentage 5.5 g/dL 6.4-8.2 [facility] Work Phone: Basophil percentage 0.30 mg/dL 0.20-1.00 [facility] Work Phone: Basophil percentage 136 mmol/L 136-145 [facility] Work Phone: [phone] Basophil percentage 4.3 mmol/L 3.5-5.1 [facility] Work Phone: [phone] Basophil percentage 105 mmol/L 98-107 [facility] Work Phone: Basophils (Bld) [#/Vol] 15.1 10*3/uL 4.4-11.0 [facility] Work Phone: [phone] Basophils (Bld) [#/Vol] 12.4 10*3/uL 2.0-7.7 [facility] Work Phone: Basophils/100 WBC (Bld) 82.3 % 47-70 [facility] Work Phone: Basophils/100 WBC (Bld) 0.1 % 0-1 [facility] Work Phone: Blood erythrocytes count (nu mber/volume)on 03-25-2021 RBC (Bld) [#/Vol] 3.59 10*6/uL 4.6-6.2 [facility] Work Phone: Blood hemoglobin measurement (mass/volume)on 03-25-2021 Hemoglobin (Bld) [Mass/Vol] 9.3 g/dL 13.0-16.5 [facility] Work Phone: [phone] Blood lymphocytes/100 leukoc yteson 03-25-2021 Lymphocytes/100 WBC (Bld) 6.0 % 19-41 [facility] Work Phone: [phone] Blood monocytes/100 leukocyt eson 03-25-2021 Monocytes/100 WBC (Bld) 8.8 % 0-10 [facility] Work Phone: Blood platelet mean volumeon 03-25-2021 Platelet mean volume (Bld) [Entitic vol] 10.8 fL 6.2-12.0 [facility] Work Phone: Determination of erythrocyte mean corpuscular volume (MCV)on 03-25-2021 MCV (RBC) [Entitic vol] 81.1 fL 80-94 [facility] Work Phone: Glucose Glucometer (BldC) [M ass/Vol]on 03-25-2021 Glucose [Mass/Vol] 389 mg/dL 70-110 [facility] Work Phone: Hematocrit Auto (Bld) [Volum e fraction]on 03-25-2021 Hematocrit (Bld) [Volume fraction] 29.1 % 40-54 [facility] Work Phone: MCHC Auto (RBC) [Mass/Vol]on 03-25-2021 MCHC (RBC) [Mass/Vol] 32.0 g/dL 32-36 [facility] Work Phone: No Panel Informationon 03-25 25.9 pg 27.0-32.0 [facility] Work Phone: [phone] 15.7 % 11.6-14.6 [facility] Work Phone: [phone] 45.5 fl 35.1-43.9 [facility] Work Phone: [phone] 2.700 % 0.0-0.9 [facility] Work Phone: [phone] 0 % 0-5 [facility] Work Phone: [phone] 119 mL/min >60 [facility] Work Phone: [phone] 144 mL/min >60 [facility] Work Phone: [phone] 72.16 ml/min [facility] Work Phone: [phone] 50.4 RATIO 10-20 [facility] Work Phone: 3.1 g/dL 2.2-4.2 [facility] Work Phone: [phone] 63 U/L 45-117 [facility] Work Phone: [phone] 22 U/L 16-61 [facility] Work Phone: 24.0 mmol/L 21.0-32.0 [facility] Work Phone: Platelets bldon 03-25-2021 Platelets (Bld) [#/Vol] 312 10*3/uL 150-450 [facility] Work Phone: Serum or plasma albumin yocasta urement (mass/volume)on 03-25-2021 Albumin [Mass/Vol] 2.4 g/dL 3.2-5.0 [facility] Work Phone: Serum or plasma albumin/glob ulin mass ratioon 03-25-2021 Albumin/Globulin [Mass ratio] 0.8 {ratio} 0.9-2.4 [facility] Work Phone: Serum or plasma calcium yocasta urement (mass/volume)on 03-25-2021 Calcium [Mass/Vol] 8.6 mg/dL 8.5-10.1 [facility] Work Phone: Serum or plasma creatinine m easurement (mass/volume)on 03-25-2021 Creatinine [Mass/Vol] 0.69 mg/dL 0.70-1.30 [facility] Work Phone: Serum or plasma urea nitroge n measurement (mass/volume)on 03-25-2021 Urea nitrogen [Mass/Vol] 35 mg/dL 7-18 [facility] Work Phone: Thin prep Papanicolaou smear with manual screeningon 03-25-2021 Thin prep Papanicolaou smear with manual screening 5 U/L 15-37 [facility] Work Phone: Thin prep Papanicolaou smear with manual screening 7 5-15 [facility] Work Phone: No Panel Informationon 03-24 1.9 mg/dL 1.6-2.6 [facility] Work Phone: Blood band neutrophil count as percentage of total leukocyteson 03-23-2021 Band form neutrophils/100 WBC (Bld) 4 % 0-5 [facility] Work Phone: Blood lymphocytes/100 leukoc yteson 03-23-2021 Lymphocytes/100 WBC (Bld) 7 % 19-41 [facility] Work Phone: Blood metamyelocytes/100 dangelo kocyteson 03-23-2021 Metamyelocytes/100 WBC (Bld) 3 % 0-1 [facility] Work Phone: Blood monocytes/100 leukocyt eson 03-23-2021 Monocytes/100 WBC (Bld) 7 % 0-10 [facility] Work Phone: Blood platelet adequacy dete ction by light microscopyon 03-23-2021 Platelets LM Ql (Bld) ADEQUATE ADEQ [facility] Work Phone: Blood segmented neutrophils/ 100 leukocyteson 03-23-2021 Segmented neutrophils/100 WBC (Bld) 79 % 47-70 [facility] Work Phone: RBC morphologyon 03-23-2021 RBC morphology finding Nom (Bld) NORM C+C NORMAL NORM C&C [facility] Work Phone: Review by pathologiston 02-25 Pathologist review Sohan (Unsp spec) [Interp] Reviewed [facility] Work Phone: Total cell counton 2 Cells counted Molgen (Bld/Tiss) [#] 100 MANUAL DIFF [facility] Work Phone: Basophil percentageon 2021 Basophil percentage 1.7 mmol/L 0.4-2.0 [facility] Work Phone: Blood manual differential co mment interpretation (narrative result)on 03-22-2021 Manual differential comment Sohan (Bld) [Interp] SCANNED [facility] Work Phone: No Panel Informationon 03-22 429 mg/dl 203-444 [facility] Work Phone: [phone] 1.02 FEU/ug/m 0.27-0.49 [facility] Work Phone: 24 U/L 39-308 [facility] Work Phone: 14 pg/mL 3.0-78.0 [facility] Work Phone: 87.9 pg/mL 0-100 [facility] Work Phone: [phone] No growth in 5 days. [facility] Work Phone: Serum or plasma C reactive p rotein measurement (mass/volume)on 03-22-2021 CRP [Mass/Vol] 9.08 mg/L 0.0-3.0 [facility] Work Phone: Serum procalcitonin measurem enton 03-22-2021 Procalcitonin [Mass/Vol] 0.16 ng/mL 0.00-0.09 [facility] Work Phone: Thin prep Papanicolaou smear with manual screeningon 03-22-2021 Thin prep Papanicolaou smear with manual screening 188 U/L 87-241 [facility] Work Phone: Absolute lymphocyte counton 03-14-2021 Lymphocytes Auto (Unsp spec) [#/Vol] 1.11 10*3/uL 0.83-4.51 [facility] Work Phone: Basophil percentageon 2021 Basophil percentage 246 mg/dL 74-106 [facility] Work Phone: [phone] Basophil percentage 6.7 g/dL 6.4-8.2 [facility] Work Phone: [phone] Basophil percentage 0.40 mg/dL 0.20-1.00 [facility] Work Phone: [phone] Basophil percentage 140 mmol/L 136-145 [facility] Work Phone: [phone] Basophil percentage 4.0 mmol/L 3.5-5.1 [facility] Work Phone: [phone] Basophil percentage 107 mmol/L 98-107 [facility] Work Phone: [phone] Basophil percentage 1.7 mmol/L 0.4-2.0 [facility] Work Phone: [phone] Basophils (Bld) [#/Vol] 8.2 10*3/uL 4.4-11.0 [facility] Work Phone: [phone] Basophils (Bld) [#/Vol] 5.4 10*3/uL 2.0-7.7 [facility] Work Phone: [phone] Basophils/100 WBC (Bld) 66.0 % 47-70 [facility] Work Phone: [phone] Basophils/100 WBC (Bld) 5.5 % 0-5 [facility] Work Phone: Basophils/100 WBC (Bld) 0.6 % 0-1 [facility] Work Phone: Blood erythrocytes count (nu mber/volume)on 03-14-2021 RBC (Bld) [#/Vol] 4.05 10*6/uL 4.6-6.2 [facility] Work Phone: Blood hemoglobin measurement (mass/volume)on 03-14-2021 Hemoglobin (Bld) [Mass/Vol] 10.4 g/dL 13.0-16.5 [facility] Work Phone: [phone] Blood lymphocytes/100 leukoc yteson 03-14-2021 Lymphocytes/100 WBC (Bld) 13.6 % 19-41 [facility] Work Phone: Blood monocytes/100 leukocyt eson 03-14-2021 Monocytes/100 WBC (Bld) 13.6 % 0-10 [facility] Work Phone: [phone] Blood platelet mean volumeon 03-14-2021 Platelet mean volume (Bld) [Entitic vol] 10.1 fL 6.2-12.0 [facility] Work Phone: Determination of erythrocyte mean corpuscular volume (MCV)on 03-14-2021 MCV (RBC) [Entitic vol] 84.2 fL 80-94 [facility] Work Phone: Hematocrit Auto (Bld) [Volum e fraction]on 03-14-2021 Hematocrit (Bld) [Volume fraction] 34.1 % 40-54 [facility] Work Phone: [phone] MCHC Auto (RBC) [Mass/Vol]on 03-14-2021 MCHC (RBC) [Mass/Vol] 30.5 g/dL 32-36 [facility] Work Phone: No Panel Informationon 03-14 25.7 pg 27.0-32.0 [facility] Work Phone: [phone] 14.8 % 11.6-14.6 [facility] Work Phone: [phone] 45.6 fl 35.1-43.9 [facility] Work Phone: [phone] 0.700 % 0.0-0.9 [facility] Work Phone: 0 % 0-5 [facility] Work Phone: 1.44 FEU/ug/m 0.27-0.49 [facility] Work Phone: [phone] 99 mL/min >60 [facility] Work Phone: [phone] 120 mL/min >60 [facility] Work Phone: [phone] 88.00 ml/min [facility] Work Phone: [phone] 24.5 RATIO 10-20 [facility] Work Phone: [phone] 3.7 g/dL 2.2-4.2 [facility] Work Phone: [phone] 10 pg/mL 3.0-78.0 [facility] Work Phone: [phone] 80 U/L 45-117 [facility] Work Phone: [phone] 22 U/L 16-61 [facility] Work Phone: [phone] 26.0 mmol/L 21.0-32.0 [facility] Work Phone: [phone] SARS-CoV-2 (COVID 19) [facility] Work Phone: [phone] No growth in 5 days. [facility] Work Phone: [phone] Platelets bldon 03-14-2021 Platelets (Bld) [#/Vol] 384 10*3/uL 150-450 [facility] Work Phone: Serum or plasma albumin yocasta urement (mass/volume)on 03-14-2021 Albumin [Mass/Vol] 3.0 g/dL 3.2-5.0 [facility] Work Phone: Serum or plasma albumin/glob ulin mass ratioon 03-14-2021 Albumin/Globulin [Mass ratio] 0.8 {ratio} 0.9-2.4 [facility] Work Phone: Serum or plasma calcium yocasta urement (mass/volume)on 03-14-2021 Calcium [Mass/Vol] 8.9 mg/dL 8.5-10.1 [facility] Work Phone: Serum or plasma creatinine m easurement (mass/volume)on 03-14-2021 Creatinine [Mass/Vol] 0.82 mg/dL 0.70-1.30 [facility] Work Phone: Serum or plasma urea nitroge n measurement (mass/volume)on 03-14-2021 Urea nitrogen [Mass/Vol] 20 mg/dL 7-18 [facility] Work Phone: Thin prep Papanicolaou smear with manual screeningon 03-14-2021 Thin prep Papanicolaou smear with manual screening 10 U/L 15-37 [facility] Work Phone: Thin prep Papanicolaou smear with manual screening 7 5-15 [facility] Work Phone: Absolute lymphocyte counton 02-05-2021 Lymphocytes Auto (Unsp spec) [#/Vol] 1.91 10*3/uL 0.83-4.51 [facility] Work Phone: Basophil percentageon 2020 Basophil percentage 92 mg/dL 74-106 [facility] Work Phone: Basophil percentage 6.7 g/dL 6.4-8.2 [facility] Work Phone: Basophil percentage 0.40 mg/dL 0.20-1.00 [facility] Work Phone: Basophil percentage 101 mg/dL <200 [facility] Work Phone: Basophil percentage 80 mg/dL [facility] Work Phone: Basophil percentage 139 mmol/L 136-145 [facility] Work Phone: Basophil percentage 4.1 mmol/L 3.5-5.1 [facility] Work Phone: Basophil percentage 107 mmol/L 98-107 [facility] Work Phone: Basophils (Bld) [#/Vol] 8.9 10*3/uL 4.4-11.0 [facility] Work Phone: [phone] Basophils (Bld) [#/Vol] 5.0 10*3/uL 2.0-7.7 [facility] Work Phone: [phone] Basophils/100 WBC (Bld) 5.9 % 0-5 [facility] Work Phone: [phone] Blood erythrocytes count (nu mber/volume)on 02-05-2021 RBC (Bld) [#/Vol] 3.94 10*6/uL 4.6-6.2 [facility] Work Phone: [phone] Blood hemoglobin measurement (mass/volume)on 02-05-2021 Hemoglobin (Bld) [Mass/Vol] 10.6 g/dL 13.0-16.5 [facility] Work Phone: Blood lymphocytes/100 leukoc yteson 02-05-2021 Lymphocytes/100 WBC (Bld) 21.5 % 19-41 [facility] Work Phone: Blood monocytes/100 leukocyt eson 02-05-2021 Monocytes/100 WBC (Bld) 14.4 % 0-10 [facility] Work Phone: Blood platelet mean volumeon 02-05-2021 Platelet mean volume (Bld) [Entitic vol] 11.1 fL 6.2-12.0 [facility] Work Phone: Determination of erythrocyte mean corpuscular volume (MCV)on 02-05-2021 MCV (RBC) [Entitic vol] 83.5 fL 80-94 [facility] Work Phone: [phone] Hematocrit Auto (Bld) [Volum e fraction]on 02-05-2021 Hematocrit (Bld) [Volume fraction] 32.9 % 40-54 [facility] Work Phone: Laboratory - Hematology and Cell countson 02-05-2021 Basophils/100 WBC (Unsp spec) 0.8 % 0-1 [facility] Work Phone: [phone] MCHC Auto (RBC) [Mass/Vol]on 02-05-2021 MCHC (RBC) [Mass/Vol] 32.2 g/dL 32-36 [facility] Work Phone: [phone] No Panel Informationon 02-05 26.9 pg 27.0-32.0 [facility] Work Phone: [phone] 14.5 % 11.6-14.6 [facility] Work Phone: [phone] 44.3 fl 35.1-43.9 [facility] Work Phone: [phone] 56.5 % 47-70 [facility] Work Phone: [phone] 0.900 % 0.0-0.9 [facility] Work Phone: [phone] 0 % 0-5 [facility] Work Phone: 114 mL/min >60 [facility] Work Phone: 138 mL/min >60 [facility] Work Phone: 20.7 RATIO 10-20 [facility] Work Phone: 3.6 g/dL 2.2-4.2 [facility] Work Phone: 93 U/L 45-117 [facility] Work Phone: 19 U/L 16-61 [facility] Work Phone: 25.0 mmol/L 21.0-32.0 [facility] Work Phone: 1.9 pg/mL 2.18-3.98 [facility] Work Phone: 0.92 uIU/mL 0.358-3.74 [facility] Work Phone: 0.92 ng/mL 0.00-4.00 [facility] Work Phone: 1.28 ng/dL 0.76-1.46 [facility] Work Phone: 27.1 ng/mL [facility] Work Phone: Platelets bldon 02-05-2021 Platelets (Bld) [#/Vol] 374 10*3/uL 150-450 [facility] Work Phone: Serum or plasma albumin yocasta urement (mass/volume)on 02-05-2021 Albumin [Mass/Vol] 3.1 g/dL 3.2-5.0 [facility] Work Phone: Serum or plasma albumin/glob ulin mass ratioon 02-05-2021 Albumin/Globulin [Mass ratio] 0.9 {ratio} 0.9-2.4 [facility] Work Phone: Serum or plasma calcium yocasta urement (mass/volume)on 02-05-2021 Calcium [Mass/Vol] 8.7 mg/dL 8.5-10.1 [facility] Work Phone: Serum or plasma cholesterol in HDL measurement (mass/volume)on 02-05-2021 Cholesterol in HDL [Mass/Vol] 35 mg/dL [facility] Work Phone: Serum or plasma cholesterol in VLDL measurement (mass/volume)on 02-05-2021 Cholesterol in VLDL [Mass/Vol] 16 mg/dL 5-40 [facility] Work Phone: Serum or plasma creatinine m easurement (mass/volume)on 02-05-2021 Creatinine [Mass/Vol] 0.72 mg/dL 0.70-1.30 [facility] Work Phone: Serum or plasma low density lipoprotein (LDL) cholesterol measurement (mass/volume)on 02-05-2021 Cholesterol in LDL [Mass/Vol] 50 mg/dL 0-130 [facility] Work Phone: Serum or plasma urea nitroge n measurement (mass/volume)on 02-05-2021 Urea nitrogen [Mass/Vol] 15 mg/dL 7-18 [facility] Work Phone: Thin prep Papanicolaou smear with manual screeningon 02-05-2021 Thin prep Papanicolaou smear with manual screening 13 U/L 15-37 [facility] Work Phone: Thin prep Papanicolaou smear with manual screening 7 5-15 [facility] Work Phone: CNOVSPon 01-12-2019 CNOVSP Visit (SP) Office ([facility]) SAL ALONZO ([id number]) 1950 M Date Time Provider Department 01/12/19 2:00 PM SAL MCCONNELL During your visit today, we recorded the following information about you: Temperature Pulse Blood pressure Weight 97.2 degrees 71/minute 158/72 112.3 kg Height 1.753 m Sal Mcconnell DO 01/12/2019 3:15 PM Signed Consult [...] signs of GI bleeding however. Fatigued. 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 No [...] leg. SKIN: No jaundice or rash. 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 No focal motor [...] poor oral iron absorption, i.e. chronic H2 aviansh therapy. Plan: -Recheck CBC and iron studies today. -If iron saturation and/or ferritin not increasing appropriately then parenteral iron. Discussed above plan with the patient and answered all his questions to his satisfaction. Sal Mcconnell DO Referring Provider: MARIO GREENBERG [[id number]] Allergies As of Date: 01/12/2019 (No Known Allergies) Date Reviewed: 01/12/2019 Reviewed by: Batool Torres - Fully Assessed Reason for Visit: New Patient Evaluation [154] Primary Visit Diagnosis:Iron deficiency anemia due to chronic blood loss [D50.0] Other Visit Diagnosis:Iron malabsorption [K90.9] Order(s):SHONNA CBC [SQWCBC] Order #: [id number] FUTURE Follow-up and Disposition History Recorded Prescriptions [...] Iron malabsorption [K90.9] 01/12/2019 Encounter Status:Closed by SAL MCCONNELL DO on 01/12/19 [facility] Ferritinon 01-12-2019 Ferritin [Mass/Vol] Test sent to [facility]. Normal 30.3-565.7 [facility] Comment on above: Result Comment: Acco unt Credited Iron and TIBCon 01-12-2019 Iron [Mass/Vol] Test sent to [facility]. Normal 41-186 [facility] Comment on above: Result Comment: Acco unt Credited TIBC Test sent to [facility]. Normal 232-386 [facility] Comment on above: Result Comment: Acco unt Credited Transferrin Saturatn Test sent to [facility]. Normal 15-57 [facility] Comment on above: Result Comment: Acco unt Credited PROGRESSon 01-12-2019 PROGRESS HNO ID: [id number] Author: Sal Mcconnell Service: ? Author Type: Physician Type: [...] signs of GI bleeding however. Fatigued. 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 No [...] leg. SKIN: No jaundice or rash. 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 No focal motor [...] answered all his questions to his satisfaction. Sal Mcconnell, DO Normal [facility] CBCon 01-12-2019 Erythrocyte distribution width (RBC) [Ratio] 17.9 % High 11.5-15.0 [facility] Hematocrit (Bld) [Volume fraction] 36.4 % Low 39.0-51.0 [facility] Hemoglobin (Bld) [Mass/Vol] 12.0 g/dL Low 13.0-17.0 [facility] MCH (RBC) [Entitic mass] 27.3 pg Normal 26.0-34.0 [facility] MCHC (RBC) [Mass/Vol] 33.0 g/dL Normal 30.5-36.0 [facility] MCV (RBC) [Entitic vol] 82.7 fL Normal 80.0-100.0 [facility] Platelet mean volume (Bld) [Entitic vol] 10.1 fL Normal 9.0-12.7 [facility] Comment on above: Result Comment: Test performed by: [facility] [address] [place] [address]. RBC (Bld) [#/Vol] 4.40 10*6/uL Normal 4.20-6.00 [facility] WBC (Bld) [#/Vol] 6.72 10*3/uL Normal 3.70-11.00 [facility] Platelet Cnt 289 k/uL Normal 150-400 [facility] Bronchoalveolar lavage cultu re with Gram stain Respiratory Culture Citrobacter freundii [facility] Work Phone: Respiratory microbial culture or Staphylococcus aureus isolated. [facility] Work Phone: Culture, urine Bacteria identified Cx Nom (U) Positive [facility] Work Phone: Gram stain for investigation of transfusion reaction Microscopic observation Gram stain Nom (Unsp spec) [facility] Work Phone: [phone] Influenza virus A and B and SARS-CoV-2 (COVID-19) Ag panel - Upper respiratory specim SARS-CoV-2 (COVID-19) RNA JUSTIN+probe Ql (Resp) [facility] Work Phone: Laboratory - Microbiology an d Antimicrobial susceptibility Bacteria identified Cx Nom (Bld) No growth in 5 days. [facility] Work Phone: Respiratory pathogens DNA and RNA 12b panel JUSTIN+probe (Unsp spec) [facility] Work Phone: Lower GI hemoglobin IA Ql (S tl) Stool Occult Blood (FOREST) Positive [facility] Work Phone: Microbial respiratory cultur e Bacteria identified Respiratory culture Nom (Unsp spec) or Staphylococcus aureus isolated. [facility] Work Phone: No Panel Information Respiratory Panel (PCR) Rhinovirus [facility] Work Phone: SARS-CoV-2 & FLU Antigen (Rapid) [facility] Work Phone: Streptococcus pneumoniae Antigen (M [facility] Work Phone: Urine Legionella pneumophila antigen detection L. pneumophila Ag Ql (U) [facility] Work Phone: Vital Signs Date Time Vital Sign Value Performing Clinician Facility 12-06-2024 10:22-0400 Body height 180.[address] Donna Will MD Work Phone: [facility] 12-06-2024 10:22-0400 Body mass index (BMI) [Ratio] 30.3 kg/m2 Dr. Donna iWll MD Work Phone: [facility] 12-06-2024 10:22-0400 Body temperature 97.5 [degF] Dr. Donna Will MD Work Phone: [facility] 12-06-2024 10:22-0400 Body weight 98.[address] Donna Will MD Work Phone: [facility] 12-06-2024 10:22-0400 Diastolic blood pressure 71 mm[Hg] Dr. Donna Will MD Work Phone: [facility] 12-06-2024 10:22-0400 Heart rate 82 /min Dr. Donna Will MD Work Phone: [facility] 12-06-2024 10:22-0400 Inhaled oxygen flow rate 3 L/min Dr. Donna Will MD Work Phone: [facility] 12-06-2024 10:22-0400 Respiratory rate 18 /min Dr. Donna Will MD Work Phone: [facility] 12-06-2024 10:22-0400 SaO2% (BldA) [Mass fraction] 97 % Dr. Donna Will MD Work Phone: [facility] 12-06-2024 10:22-0400 Systolic blood pressure 104 mm[Hg] Dr. Donna Will MD Work Phone: [facility] 12-06-2024 08:40-0400 Body mass index (BMI) [Ratio] 30.3 kg/m2 Dr. Donna Will MD Work Phone: [facility] 12-06-2024 08:40-0400 Body temperature 98.4 [degF] Dr. Donna Will MD Work Phone: [phone] [place] [address] 12-06-2024 08:40-0400 Body weight 98.[address] Donna Will MD Work Phone: [facility] 12-06-2024 08:40-0400 Diastolic blood pressure 56 mm[Hg] Dr. Donna Will MD Work Phone: [facility] 12-06-2024 08:40-0400 Heart rate 74 /min Dr. Donna Will MD Work Phone: [facility] 12-06-2024 08:40-0400 Inhaled oxygen flow rate 3 L/min Dr. Donna Will MD Work Phone: [facility] 12-06-2024 08:40-0400 Respiratory rate 16 /min Dr. Donna Will MD Work Phone: [facility] 12-06-2024 08:40-0400 SaO2% (BldA) [Mass fraction] 86 % Dr. Donna Will MD Work Phone: [facility] 12-06-2024 08:40-0400 Systolic blood pressure 88 mm[Hg] Dr. Donna Will MD Work Phone: [facility] 10-08-2024 08:22-0400 Body mass index (BMI) [Ratio] 29.2 kg/m2 Dr. Donna Will MD Work Phone: [facility] 10-08-2024 08:22-0400 Body weight 95.[address] Donna Will MD Work Phone: [facility] 10-08-2024 08:22-0400 Diastolic blood pressure 60 mm[Hg] Dr. Donna Will MD Work Phone: [facility] 10-08-2024 08:22-0400 Heart rate 75 /min Dr. Donna Will MD Work Phone: [facility] 10-08-2024 08:22-0400 Inhaled oxygen flow rate 5 L/min Dr. Donna Will MD Work Phone: [facility] 10-08-2024 08:22-0400 Respiratory rate 20 /min Dr. Donna Will MD Work Phone: [facility] 10-08-2024 08:22-0400 SaO2% (BldA) [Mass fraction] 90 % Dr. Donna Will MD Work Phone: [facility] 10-08-2024 08:22-0400 Systolic blood pressure 112 mm[Hg] Dr. Donna Will MD Work Phone: [facility] 09-24-2024 08:40-0400 Body height 180.[address] Donna Will MD Work Phone: [facility] 09-24-2024 08:40-0400 Body mass index (BMI) [Ratio] 28.2 kg/m2 Dr. Donna Will MD Work Phone: [facility] 09-24-2024 08:40-0400 Body temperature 97.3 [degF] Dr. Dnona Will MD Work Phone: [facility] 09-24-2024 08:40-0400 Body weight 91.[address] Donna Will MD Work Phone: [facility] 09-24-2024 08:40-0400 Diastolic blood pressure 59 mm[Hg] Dr. Donna Will MD Work Phone: [facility] 09-24-2024 08:40-0400 Heart rate 71 /min Dr. Donna Will MD Work Phone: [facility] 09-24-2024 08:40-0400 Inhaled oxygen flow rate 4 L/min Dr. Donna Will MD Work Phone: [facility] 09-24-2024 08:40-0400 Respiratory rate 20 /min Dr. Donna Will MD Work Phone: [facility] 09-24-2024 08:40-0400 SaO2% (BldA) [Mass fraction] 92 % Dr. Donna Will MD Work Phone: [facility] 09-24-2024 08:40-0400 Systolic blood pressure 103 mm[Hg] Dr. Donna Will MD Work Phone: [facility] 09-16-2024 10:08-0400 Body height 180.[address] Donna Will MD Work Phone: [facility] 09-16-2024 10:08-0400 Body mass index (BMI) [Ratio] 27.9 kg/m2 Dr. Donna Will MD Work Phone: [facility] 09-16-2024 10:08-0400 Body temperature 98.2 [degF] Dr. Donna Will MD Work Phone: [facility] 09-16-2024 10:08-0400 Body weight 90.[address] Donna Will MD Work Phone: [facility] 09-16-2024 10:08-0400 Diastolic blood pressure 58 mm[Hg] Dr. Donna Will MD Work Phone: [facility] 09-16-2024 10:08-0400 Heart rate 66 /min Dr. Donna Will MD Work Phone: [facility] 09-16-2024 10:08-0400 Inhaled oxygen flow rate 5 L/min Dr. Donna Will MD Work Phone: [facility] 09-16-2024 10:08-0400 Respiratory rate 16 /min Dr. Donna Will MD Work Phone: [facility] 09-16-2024 10:08-0400 SaO2% (BldA) [Mass fraction] 89 % Dr. Donna Will MD Work Phone: [facility] 09-16-2024 10:08-0400 Systolic blood pressure 107 mm[Hg] Dr. Donna Will MD Work Phone: [facility] 09-13-2024 09:46-0400 Body height 180.[address] Donna Will MD Work Phone: [facility] 09-13-2024 09:46-0400 Body temperature 97 [degF] Dr. Donna Will MD Work Phone: [facility] 09-13-2024 09:46-0400 Diastolic blood pressure 51 mm[Hg] Dr. Donna Will MD Work Phone: [facility] 09-13-2024 09:46-0400 Heart rate 65 /min Dr. Donna Will MD Work Phone: [facility] 09-13-2024 09:46-0400 Inhaled oxygen flow rate 4 L/min Dr. Donna Will MD Work Phone: [facility] 09-13-2024 09:46-0400 Respiratory rate 18 /min Dr. Donna Will MD Work Phone: [facility] 09-13-2024 09:46-0400 SaO2% (BldA) [Mass fraction] 93 % Dr. Donna Will MD Work Phone: [facility] 09-13-2024 09:46-0400 Systolic blood pressure 98 mm[Hg] Dr. Donna Will MD Work Phone: [facility] 08-25-2024 15:14-0400 Body temperature 98.2 [degF] Dr. Donna Will MD Work Phone: [facility] 08-25-2024 15:14-0400 Diastolic blood pressure 61 mm[Hg] Dr. Donna Will MD Work Phone: [facility] 08-25-2024 15:14-0400 Heart rate 74 /min Dr. Donna Will MD Work Phone: [facility] 08-25-2024 15:14-0400 Inhaled oxygen flow rate 4 L/min Dr. Donna Will MD Work Phone: [facility] 08-25-2024 15:14-0400 Respiratory rate 20 /min Dr. Donna Will MD Work Phone: [facility] 08-25-2024 15:14-0400 SaO2% (BldA) [Mass fraction] 94 % Dr. Donna Will MD Work Phone: [facility] 08-25-2024 15:14-0400 Systolic blood pressure 113 mm[Hg] Dr. Donna Wlil MD Work Phone: [facility] 08-25-2024 03:26-0400 Body mass index (BMI) [Ratio] 30.8 kg/m2 Dr. Donna Will MD Work Phone: [facility] 08-25-2024 03:26-0400 Body weight 100.[address] Donna Will MD Work Phone: [facility] 08-23-2024 01:45-0400 Inhaled oxygen concentration 35 % Dr. Donna Will MD Work Phone: [facility] 08-22-2024 09:47-0400 Body height 180.[address] Donna Will MD Work Phone: [facility] 08-21-2024 13:00-0400 Body temperature 98.1 [degF] Dr. Donna Will MD Work Phone: [facility] 08-21-2024 13:00-0400 Diastolic blood pressure 66 mm[Hg] Dr. Donna Will MD Work Phone: [facility] 08-21-2024 13:00-0400 Heart rate 82 /min Dr. Donna Will MD Work Phone: [facility] 08-21-2024 13:00-0400 Respiratory rate 25 /min Dr. Donna Will MD Work Phone: [facility] 08-21-2024 13:00-0400 SaO2% (BldA) [Mass fraction] 97 % Dr. Donna Will MD Work Phone: [facility] 08-21-2024 13:00-0400 Systolic blood pressure 133 mm[Hg] Dr. Donna Will MD Work Phone: [facility] 08-21-2024 12:00-0400 Inhaled oxygen concentration 40 % Dr. Donna Will MD Work Phone: [facility] 08-21-2024 10:52-0400 Inhaled oxygen flow rate 5 L/min Dr. Donna Will MD Work Phone: [facility] 08-21-2024 10:26-0400 Body height 180.[address] Donna Will MD Work Phone: [facility] 08-21-2024 10:26-0400 Body mass index (BMI) [Ratio] 31.4 kg/m2 Dr. Donna Will MD Work Phone: [facility] 08-21-2024 10:26-0400 Body weight 102.[address] Donna Will MD Work Phone: [facility] 08-03-2024 14:23-0400 Body temperature 96.4 [degF] Dr. Donna Will MD Work Phone: [facility] 08-03-2024 14:23-0400 Diastolic blood pressure 50 mm[Hg] Dr. Donna Will MD Work Phone: [facility] 08-03-2024 14:23-0400 Heart rate 70 /min Dr. Donna Will MD Work Phone: [facility] 08-03-2024 14:23-0400 Respiratory rate 16 /min Dr. Donan Will MD Work Phone: [facility] 08-03-2024 14:23-0400 Systolic blood pressure 105 mm[Hg] Dr. Donna Will MD Work Phone: [facility] 08-03-2024 13:46-0400 Body mass index (BMI) [Ratio] 32.3 kg/m2 Dr. Donna Will MD Work Phone: [facility] 08-03-2024 13:46-0400 Body weight 105.[address] Donna Will MD Work Phone: [facility] 08-03-2024 13:46-0400 Inhaled oxygen flow rate 4 L/min Dr. Donna Will MD Work Phone: [facility] 08-03-2024 13:46-0400 SaO2% (BldA) [Mass fraction] 90 % Dr. Donna Will MD Work Phone: [facility] 07-20-2024 14:48-0400 Body height 180.[address] Donna Will MD Work Phone: [facility] 07-20-2024 14:48-0400 Body temperature 98.2 [degF] Dr. Donna Will MD Work Phone: [facility] 07-20-2024 14:48-0400 Diastolic blood pressure 58 mm[Hg] Dr. Donna Will MD Work Phone: [facility] 07-20-2024 14:48-0400 Heart rate 80 /min Dr. Donna Will MD Work Phone: [facility] 07-20-2024 14:48-0400 Inhaled oxygen flow rate 4 L/min Dr. Donna Will MD Work Phone: [facility] 07-20-2024 14:48-0400 Respiratory rate 18 /min Dr. Donna Will MD Work Phone: [facility] 07-20-2024 14:48-0400 SaO2% (BldA) [Mass fraction] 99 % Dr. Donna Will MD Work Phone: [facility] 07-20-2024 14:48-0400 Systolic blood pressure 112 mm[Hg] Dr. Donna Wlil MD Work Phone: [facility] 07-08-2024 17:00-0400 Body temperature 97.8 [degF] Dr. Donna Will MD Work Phone: [facility] 07-08-2024 17:00-0400 Diastolic blood pressure 78 mm[Hg] Dr. Donna Will MD Work Phone: [facility] 07-08-2024 17:00-0400 Heart rate 79 /min Dr. Donna Will MD Work Phone: [facility] 07-08-2024 17:00-0400 Respiratory rate 19 /min Dr. Donna Will MD Work Phone: [facility] 07-08-2024 17:00-0400 SaO2% (BldA) [Mass fraction] 100 % Dr. Donna Will MD Work Phone: [facility] 07-08-2024 17:00-0400 Systolic blood pressure 121 mm[Hg] Dr. Donna Will MD Work Phone: [facility] 07-08-2024 16:00-0400 Inhaled oxygen flow rate 4 L/min Dr. Donna Will MD Work Phone: [facility] 07-08-2024 12:29-0400 Body height 180.[address] Donna Will MD Work Phone: [facility] 06-30-2024 10:14-0400 Body mass index (BMI) [Ratio] 30.5 kg/m2 Dr. Donna Will MD Work Phone: [facility] 06-30-2024 10:14-0400 Body temperature 98.2 [degF] Dr. Donna Will MD Work Phone: [facility] 06-30-2024 10:14-0400 Body weight 99.[address] Donna Will MD Work Phone: [facility] 06-30-2024 10:14-0400 Diastolic blood pressure 61 mm[Hg] Dr. Donna Will MD Work Phone: [facility] 06-30-2024 10:14-0400 Heart rate 73 /min Dr. Donna Will MD Work Phone: [facility] 06-30-2024 10:14-0400 Inhaled oxygen flow rate 4 L/min Dr. Donna Will MD Work Phone: [facility] 06-30-2024 10:14-0400 Respiratory rate 16 /min Dr. Donna Will MD Work Phone: [facility] 06-30-2024 10:14-0400 SaO2% (BldA) [Mass fraction] 92 % Dr. Donna Will MD Work Phone: [facility] 06-30-2024 10:14-0400 Systolic blood pressure 123 mm[Hg] Dr. Donna Will MD Work Phone: [facility] 06-25-2024 12:27-0400 Body temperature 97.9 [degF] Dr. Donna Will MD Work Phone: [facility] 06-25-2024 12:27-0400 Diastolic blood pressure 72 mm[Hg] Dr. Donna Will MD Work Phone: [facility] 06-25-2024 12:27-0400 Heart rate 98 /min Dr. Donna Will MD Work Phone: [facility] 06-25-2024 12:27-0400 Inhaled oxygen flow rate 3 L/min Dr. Donna Will MD Work Phone: [facility] 06-25-2024 12:27-0400 Respiratory rate 18 /min Dr. Donna Will MD Work Phone: [facility] 06-25-2024 12:27-0400 SaO2% (BldA) [Mass fraction] 91 % Dr. Donna Will MD Work Phone: [facility] 06-25-2024 12:27-0400 Systolic blood pressure 118 mm[Hg] Dr. Donna Will MD Work Phone: [facility] 06-25-2024 07:04-0400 Inhaled oxygen concentration 30 % Dr. Donna Will MD Work Phone: [facility] 06-25-2024 03:41-0400 Body mass index (BMI) [Ratio] 30.3 kg/m2 Dr. Donna Will MD Work Phone: [facility] 06-25-2024 03:41-0400 Body weight 98.[address] Donna Will MD Work Phone: [facility] 06-21-2024 09:20-0400 Body height 180.[address] Donna Will MD Work Phone: [facility] 05-27-2024 15:19-0400 Body temperature 98.4 [degF] Dr. Donna Will MD Work Phone: [facility] 05-27-2024 15:19-0400 Diastolic blood pressure 64 mm[Hg] Dr. Donna Will MD Work Phone: [facility] 05-27-2024 15:19-0400 Heart rate 61 /min Dr. Donna Will MD Work Phone: [facility] 05-27-2024 15:19-0400 Respiratory rate 18 /min Dr. Donna Will MD Work Phone: [facility] 05-27-2024 15:19-0400 SaO2% (BldA) [Mass fraction] 100 % Dr. Donna Will MD Work Phone: [facility] 05-27-2024 15:19-0400 Systolic blood pressure 120 mm[Hg] Dr. Donna Will MD Work Phone: [facility] 05-20-2024 12:45-0400 Body mass index (BMI) [Ratio] 28.8 kg/m2 Dr. Donna Will MD Work Phone: [facility] 05-20-2024 12:45-0400 Body weight 93.[address] Donna Will MD Work Phone: [facility] 05-20-2024 12:45-0400 Inhaled oxygen flow rate 5 L/min Dr. Donna Will MD Work Phone: [facility] 05-18-2024 13:09-0400 Body mass index (BMI) [Ratio] 28.7 kg/m2 Dr. Donna Will MD Work Phone: [facility] 05-18-2024 13:09-0400 Body temperature 97.4 [degF] Dr. Donna Will MD Work Phone: [facility] 05-18-2024 13:09-0400 Body weight 93.[address] Donna Will MD Work Phone: [facility] 05-18-2024 13:09-0400 Diastolic blood pressure 58 mm[Hg] Dr. Donna Will MD Work Phone: [facility] 05-18-2024 13:09-0400 Heart rate 44 /min Dr. Donna Will MD Work Phone: [facility] 05-18-2024 13:09-0400 Inhaled oxygen flow rate 4 L/min Dr. Donna Will MD Work Phone: [facility] 05-18-2024 13:09-0400 Respiratory rate 20 /min Dr. Donna Will MD Work Phone: [facility] 05-18-2024 13:09-0400 SaO2% (BldA) [Mass fraction] 94 % Dr. Donna Will MD Work Phone: [facility] 05-18-2024 13:09-0400 Systolic blood pressure 110 mm[Hg] Dr. Donna Will MD Work Phone: [facility] 04-27-2024 13:52-0500 Body mass index (BMI) [Ratio] 30.7 kg/m2 Dr. Donna Will MD Work Phone: [facility] 04-27-2024 13:52-0500 Body temperature 97.6 [degF] Dr. Donna Will MD Work Phone: [facility] 04-27-2024 13:52-0500 Body weight 99.[address] Donna Will MD Work Phone: [facility] 04-27-2024 13:52-0500 Diastolic blood pressure 68 mm[Hg] Dr. Donna Will MD Work Phone: [facility] 04-27-2024 13:52-0500 Heart rate 77 /min Dr. Donna Will MD Work Phone: [facility] 04-27-2024 13:52-0500 Inhaled oxygen flow rate 4 L/min Dr. Donna Will MD Work Phone: [facility] 04-27-2024 13:52-0500 Respiratory rate 18 /min Dr. Donna Will MD Work Phone: [facility] 04-27-2024 13:52-0500 SaO2% (BldA) [Mass fraction] 92 % Dr. Donna Will MD Work Phone: [facility] 04-27-2024 13:52-0500 Systolic blood pressure 121 mm[Hg] Dr. Donna Will MD Work Phone: [facility] 04-08-2024 10:46-0500 Heart rate 71 /min Dr. Donna Will MD Work Phone: [facility] 04-08-2024 10:46-0500 Respiratory rate 18 /min Dr. Donna Will MD Work Phone: [facility] 04-08-2024 07:59-0500 Body temperature 97.8 [degF] Dr. Donna Will MD Work Phone: [facility] 04-08-2024 07:59-0500 Diastolic blood pressure 79 mm[Hg] Dr. Donna Will MD Work Phone: [facility] 04-08-2024 07:59-0500 Inhaled oxygen flow rate 4 L/min Dr. Dnona Will MD Work Phone: [facility] 04-08-2024 07:59-0500 SaO2% (BldA) [Mass fraction] 98 % Dr. Donna Will MD Work Phone: [facility] 04-08-2024 07:59-0500 Systolic blood pressure 132 mm[Hg] Dr. Donna Will MD Work Phone: [facility] 04-08-2024 05:23-0500 Body mass index (BMI) [Ratio] 30.4 kg/m2 Dr. Donna Will MD Work Phone: [facility] 04-08-2024 05:23-0500 Body weight 99.[address] Donna Will MD Work Phone: [facility] 03-16-2024 11:38-0500 Body mass index (BMI) [Ratio] 28.8 kg/m2 Dr. Donna Will MD Work Phone: [facility] 03-16-2024 11:38-0500 Body weight 98.[address] Donna Will MD Work Phone: [facility] 03-16-2024 11:38-0500 Diastolic blood pressure 59 mm[Hg] Dr. Donna Will MD Work Phone: [facility] 03-16-2024 11:38-0500 Heart rate 76 /min Dr. Donna Will MD Work Phone: [facility] 03-16-2024 11:38-0500 Inhaled oxygen flow rate 4 L/min Dr. Donna Will MD Work Phone: [phone] [place] [address] 03-16-2024 11:38-0500 Respiratory rate 18 /min Dr. Donna Will MD Work Phone: [facility] 03-16-2024 11:38-0500 SaO2% (BldA) [Mass fraction] 85 % Dr. Donna Will MD Work Phone: [facility] 03-16-2024 11:38-0500 Systolic blood pressure 101 mm[Hg] Dr. Donna Will MD Work Phone: [facility] 03-05-2024 12:25-0500 Body mass index (BMI) [Ratio] 28.8 kg/m2 Dr. Donna Will MD Work Phone: [facility] 03-05-2024 12:25-0500 Body temperature 97.4 [degF] Dr. Donna Will MD Work Phone: [facility] 03-05-2024 12:25-0500 Body weight 98.[address] Donna Will MD Work Phone: [facility] 03-05-2024 12:25-0500 Diastolic blood pressure 64 mm[Hg] Dr. Donna Will MD Work Phone: [facility] 03-05-2024 12:25-0500 Heart rate 84 /min Dr. Donna Will MD Work Phone: [facility] 03-05-2024 12:25-0500 Inhaled oxygen flow rate 4 L/min Dr. Donna Will MD Work Phone: [facility] 03-05-2024 12:25-0500 Respiratory rate 28 /min Dr. Donna Will MD Work Phone: [facility] 03-05-2024 12:25-0500 SaO2% (BldA) [Mass fraction] 90 % Dr. Donna Will MD Work Phone: [facility] 03-05-2024 12:25-0500 Systolic blood pressure 103 mm[Hg] Dr. Donna Will MD Work Phone: [facility] 03-03-2024 11:13-0500 Inhaled oxygen flow rate 4 L/min Dr. Donna Will MD Work Phone: [facility] 03-03-2024 11:13-0500 SaO2% (BldA) [Mass fraction] 92 % Dr. Donna Will MD Work Phone: [facility] 03-03-2024 10:02-0500 Body mass index (BMI) [Ratio] 28.8 kg/m2 Dr. Donna Will MD Work Phone: [facility] 03-03-2024 10:02-0500 Body temperature 98.2 [degF] Dr. Donna Will MD Work Phone: [facility] 03-03-2024 10:02-0500 Body weight 98.[address] Donna Will MD Work Phone: [facility] 03-03-2024 10:02-0500 Diastolic blood pressure 68 mm[Hg] Dr. Donna Will MD Work Phone: [facility] 03-03-2024 10:02-0500 Heart rate 83 /min Dr. Donna Will MD Work Phone: [facility] 03-03-2024 10:02-0500 Respiratory rate 20 /min Dr. Donna Will MD Work Phone: [facility] 03-03-2024 10:02-0500 Systolic blood pressure 117 mm[Hg] Dr. Donna Will MD Work Phone: [facility] 06-05-2023 10:30-0400 Diastolic blood pressure 58 mm[Hg] Dr. Donna Will Work Phone: [facility] 06-05-2023 10:30-0400 Heart rate 69 /min Dr. Donna Will Work Phone: [facility] 06-05-2023 10:30-0400 Inhaled oxygen flow rate 5 L/min Dr. Donna Will Work Phone: [facility] 06-05-2023 10:30-0400 Respiratory rate 18 /min Dr. Donna Will Work Phone: [facility] 06-05-2023 10:30-0400 SaO2% (BldA) [Mass fraction] 94 % Dr. Donna Will Work Phone: [facility] 06-05-2023 10:30-0400 Systolic blood pressure 128 mm[Hg] Dr. Donna Will Work Phone: [facility] 06-05-2023 08:45-0400 Body height 180.[address] Donna Will Work Phone: [facility] 06-05-2023 08:45-0400 Body mass index (BMI) [Ratio] 33.3 kg/m2 Dr. Donna Will Work Phone: [facility] 06-05-2023 08:45-0400 Body temperature 96.5 [degF] Dr. Donna Will Work Phone: [facility] 06-05-2023 08:45-0400 Body weight 108.[address] Donna Will Work Phone: [facility] 05-28-2023 10:58-0400 Body mass index (BMI) [Ratio] 33.4 kg/m2 Dr. Donna Will Work Phone: [facility] 05-28-2023 10:58-0400 Body temperature 97.6 [degF] Dr. Donna Will Work Phone: [facility] 05-28-2023 10:58-0400 Body weight 108.[address] Donna Will Work Phone: [facility] 05-28-2023 10:58-0400 Diastolic blood pressure 64 mm[Hg] Dr. Donna Will Work Phone: [facility] 05-28-2023 10:58-0400 Heart rate 81 /min Dr. Donna Will Work Phone: [facility] 05-28-2023 10:58-0400 Inhaled oxygen flow rate 2 L/min Dr. Donna Will Work Phone: [facility] 05-28-2023 10:58-0400 Respiratory rate 18 /min Dr. Donna Will Work Phone: [facility] 05-28-2023 10:58-0400 SaO2% (BldA) [Mass fraction] 90 % Dr. Donna Will Work Phone: [facility] 05-28-2023 10:58-0400 Systolic blood pressure 111 mm[Hg] Dr. Donna Will Work Phone: [facility] 05-12-2023 10:29-0400 Body height 180.[address] Donna Will Work Phone: [facility] 05-12-2023 10:29-0400 Body mass index (BMI) [Ratio] 33.2 kg/m2 Dr. Donna Will Work Phone: [facility] 05-12-2023 10:29-0400 Body weight 107.[address] Donna Will Work Phone: [facility] 05-12-2023 10:29-0400 Diastolic blood pressure 73 mm[Hg] Dr. Donna Will Work Phone: [facility] 05-12-2023 10:29-0400 Heart rate 83 /min Dr. Donna Will Work Phone: [facility] 05-12-2023 10:29-0400 Inhaled oxygen flow rate 4 L/min Dr. Donna Will Work Phone: [facility] 05-12-2023 10:29-0400 Respiratory rate 20 /min Dr. Donna Will Work Phone: [facility] 05-12-2023 10:29-0400 SaO2% (BldA) [Mass fraction] 94 % Dr. Donna Will Work Phone: [facility] 05-12-2023 10:29-0400 Systolic blood pressure 118 mm[Hg] Dr. Donna Will Work Phone: [facility] 05-09-2023 14:09-0400 Body temperature 97.2 [degF] Dr. Donna Will Work Phone: [facility] 05-09-2023 14:09-0400 Diastolic blood pressure 75 mm[Hg] Dr. Donna Will Work Phone: [facility] 05-09-2023 14:09-0400 Heart rate 80 /min Dr. Donna Will Work Phone: [facility] 05-09-2023 14:09-0400 Inhaled oxygen flow rate 4 L/min Dr. Donna Will Work Phone: [facility] 05-09-2023 14:09-0400 Respiratory rate 16 /min Dr. Donna Will Work Phone: [facility] 05-09-2023 14:09-0400 SaO2% (BldA) [Mass fraction] 98 % Dr. Donna Will Work Phone: [facility] 05-09-2023 14:09-0400 Systolic blood pressure 132 mm[Hg] Dr. Donna Will Work Phone: [facility] 05-09-2023 09:04-0400 Body mass index (BMI) [Ratio] 32.9 kg/m2 Dr. Donna Will Work Phone: [facility] 05-09-2023 09:04-0400 Body weight 107.[address] Donna Will Work Phone: [facility] 05-07-2023 11:10-0400 Body mass index (BMI) [Ratio] 32.8 kg/m2 Dr. Donna Will Work Phone: [facility] 05-07-2023 11:10-0400 Body temperature 98.3 [degF] Dr. Donna Will Work Phone: [facility] 05-07-2023 11:10-0400 Body weight 106.[address] Donna Will Work Phone: [facility] 05-07-2023 11:10-0400 Diastolic blood pressure 71 mm[Hg] Dr. Donna Will Work Phone: [facility] 05-07-2023 11:10-0400 Heart rate 83 /min Dr. Donna Will Work Phone: [facility] 05-07-2023 11:10-0400 Inhaled oxygen flow rate 2 L/min Dr. Donna Will Work Phone: [facility] 05-07-2023 11:10-0400 Respiratory rate 18 /min Dr. Donna Will Work Phone: [facility] 05-07-2023 11:10-0400 SaO2% (BldA) [Mass fraction] 91 % Dr. Donna Will Work Phone: [facility] 05-07-2023 11:10-0400 Systolic blood pressure 117 mm[Hg] Dr. Donna Will Work Phone: [facility] 03-27-2023 11:35-0500 Body temperature 97.5 [degF] Dr. Donna Will Work Phone: [facility] 03-27-2023 11:35-0500 Diastolic blood pressure 60 mm[Hg] Dr. Donna Will Work Phone: [facility] 03-27-2023 11:35-0500 Heart rate 76 /min Dr. Donna Will Work Phone: [facility] 03-27-2023 11:35-0500 Inhaled oxygen flow rate 2 L/min Dr. Donna Will Work Phone: [facility] 03-27-2023 11:35-0500 Respiratory rate 18 /min Dr. Donna Will Work Phone: [facility] 03-27-2023 11:35-0500 SaO2% (BldA) [Mass fraction] 90 % Dr. Donna Will Work Phone: [facility] 03-27-2023 11:35-0500 Systolic blood pressure 110 mm[Hg] Dr. Donna Will Work Phone: [facility] 03-21-2023 14:21-0500 Inhaled oxygen flow rate 4 L/min Dr. Donna Will Work Phone: [facility] 03-21-2023 14:00-0500 Body temperature 98 [degF] Dr. Donna Will Work Phone: [facility] 03-21-2023 14:00-0500 Diastolic blood pressure 65 mm[Hg] Dr. Donna Will Work Phone: [facility] 03-21-2023 14:00-0500 Heart rate 82 /min Dr. Donna Will Work Phone: [facility] 03-21-2023 14:00-0500 Respiratory rate 18 /min Dr. Donna Will Work Phone: [facility] 03-21-2023 14:00-0500 SaO2% (BldA) [Mass fraction] 100 % Dr. Donna Will Work Phone: [facility] 03-21-2023 14:00-0500 Systolic blood pressure 103 mm[Hg] Dr. Donna Will Work Phone: [facility] 03-21-2023 08:48-0500 Body mass index (BMI) [Ratio] 28.8 kg/m2 Dr. Donna Will Work Phone: [facility] 03-21-2023 08:48-0500 Body weight 93.[address] Donna Will Work Phone: [facility] 03-18-2023 09:15-0500 Body height 180.[address] Donna Will Work Phone: [facility] 03-16-2023 17:37-0500 Body temperature 96.4 [degF] Dr. Donna Will Work Phone: [facility] 03-16-2023 17:37-0500 Diastolic blood pressure 51 mm[Hg] Dr. Donna Will Work Phone: [facility] 03-16-2023 17:37-0500 Heart rate 68 /min Dr. Donna Will Work Phone: [facility] 03-16-2023 17:37-0500 Inhaled oxygen flow rate 4 L/min Dr. Donna Will Work Phone: [facility] 03-16-2023 17:37-0500 Respiratory rate 22 /min Dr. Dnona Will Work Phone: [facility] 03-16-2023 17:37-0500 SaO2% (BldA) [Mass fraction] 100 % Dr. Donna Will Work Phone: [facility] 03-16-2023 17:37-0500 Systolic blood pressure 122 mm[Hg] Dr. Donna Will Work Phone: [facility] 03-16-2023 17:33-0500 Body height 180.[address] Donna Will Work Phone: [facility] 03-16-2023 17:33-0500 Body mass index (BMI) [Ratio] 29.2 kg/m2 Dr. Donna Will Work Phone: [facility] 03-16-2023 17:33-0500 Body weight 95.[address] Donna Will Work Phone: [facility] 03-06-2023 14:12-0500 Heart rate 99 /min Dr. Donna Will Work Phone: [facility] 03-06-2023 14:12-0500 Respiratory rate 18 /min Dr. Donna Will Work Phone: [facility] 03-06-2023 11:52-0500 Body temperature 97.8 [degF] Dr. Donna Will Work Phone: [facility] 03-06-2023 11:52-0500 Diastolic blood pressure 56 mm[Hg] Dr. Donna Will Work Phone: [facility] 03-06-2023 11:52-0500 Inhaled oxygen flow rate 3 L/min Dr. Donna Will Work Phone: [facility] 03-06-2023 11:52-0500 SaO2% (BldA) [Mass fraction] 94 % Dr. Donna Will Work Phone: [facility] 03-06-2023 11:52-0500 Systolic blood pressure 94 mm[Hg] Dr. Donna Will Work Phone: [facility] 03-06-2023 04:59-0500 Body mass index (BMI) [Ratio] 33.5 kg/m2 Dr. Donna Will Work Phone: [facility] 03-06-2023 04:59-0500 Body weight [address] Donna Will Work Phone: [facility] 03-05-2023 15:41-0500 Body height 180.[address] Donna Will Work Phone: [facility] 02-28-2023 16:15-0500 Diastolic blood pressure 71 mm[Hg] Dr. Donna Will Work Phone: [facility] 02-28-2023 16:15-0500 Heart rate 95 /min Dr. Donna Will Work Phone: [facility] 02-28-2023 16:15-0500 Respiratory rate 31 /min Dr. Donna Will Work Phone: [facility] 02-28-2023 16:15-0500 SaO2% (BldA) [Mass fraction] 90 % Dr. Donna Will Work Phone: [facility] 02-28-2023 16:15-0500 Systolic blood pressure 121 mm[Hg] Dr. Donna Will Work Phone: [facility] 02-28-2023 15:30-0500 Inhaled oxygen flow rate 4 L/min Dr. Donna Will Work Phone: [facility] 02-28-2023 15:00-0500 Body temperature 97.4 [degF] Dr. Donna Will Work Phone: [facility] 02-28-2023 11:08-0500 Body height 180.[address] Donna Will Work Phone: [facility] 02-06-2023 11:14-0500 Body temperature 98.1 [degF] Dr. Donna Will Work Phone: [facility] 02-06-2023 11:14-0500 Diastolic blood pressure 50 mm[Hg] Dr. Donna Will Work Phone: [facility] 02-06-2023 11:14-0500 Heart rate 81 /min Dr. Donna Will Work Phone: [facility] 02-06-2023 11:14-0500 Respiratory rate 16 /min Dr. Donna Will Work Phone: [facility] 02-06-2023 11:14-0500 SaO2% (BldA) [Mass fraction] 100 % Dr. Donna Will Work Phone: [facility] 02-06-2023 11:14-0500 Systolic blood pressure 112 mm[Hg] Dr. Donna Will Work Phone: [facility] 02-06-2023 10:30-0500 Body mass index (BMI) [Ratio] 30.9 kg/m2 Dr. Donna Will Work Phone: [facility] 02-06-2023 10:30-0500 Body weight 100.[address] Donna Will Work Phone: [facility] 02-06-2023 10:30-0500 Inhaled oxygen flow rate 4 L/min Dr. Donna Will Work Phone: [facility] 01-30-2023 11:30-0500 Body temperature 97.7 [degF] Dr. Donna Will Work Phone: [facility] 01-30-2023 11:30-0500 Diastolic blood pressure 49 mm[Hg] Dr. Donna Will Work Phone: [facility] 01-30-2023 11:30-0500 Heart rate 77 /min Dr. Donna Will Work Phone: [facility] 01-30-2023 11:30-0500 Respiratory rate 18 /min Dr. Donna Will Work Phone: [facility] 01-30-2023 11:30-0500 Systolic blood pressure 103 mm[Hg] Dr. Donna Will Work Phone: [facility] 01-30-2023 10:03-0500 Body height 180.[address] Donna Will Work Phone: [facility] 01-30-2023 10:03-0500 Body mass index (BMI) [Ratio] 30.9 kg/m2 Dr. Donna Will Work Phone: [facility] 01-30-2023 10:03-0500 Body weight 100.[address] Donna Will Work Phone: [facility] 01-30-2023 10:03-0500 Inhaled oxygen flow rate 4 L/min Dr. Donna Will Work Phone: [facility] 01-30-2023 10:03-0500 SaO2% (BldA) [Mass fraction] 96 % Dr. Donna Will Work Phone: [facility] 01-28-2023 07:43-0500 Body mass index (BMI) [Ratio] 30.4 kg/m2 Dr. Donna Will Work Phone: [facility] 01-28-2023 07:43-0500 Body temperature 96.9 [degF] Dr. Donna Wlil Work Phone: [facility] 01-28-2023 07:43-0500 Body weight 98.[address] Donna Will Work Phone: [facility] 01-28-2023 07:43-0500 Diastolic blood pressure 51 mm[Hg] Dr. Donna Will Work Phone: [facility] 01-28-2023 07:43-0500 Heart rate 88 /min Dr. Donna Will Work Phone: [facility] 01-28-2023 07:43-0500 Inhaled oxygen flow rate 3 L/min Dr. Donna Will Work Phone: [facility] 01-28-2023 07:43-0500 Respiratory rate 24 /min Dr. Donna Will Work Phone: [facility] 01-28-2023 07:43-0500 SaO2% (BldA) [Mass fraction] 93 % Dr. Donna Will Work Phone: [facility] 01-28-2023 07:43-0500 Systolic blood pressure 99 mm[Hg] Dr. Donna Will Work Phone: [facility] 01-21-2023 13:48-0500 Body mass index (BMI) [Ratio] 31.8 kg/m2 Dr. Donna Will Work Phone: [facility] 01-21-2023 13:48-0500 Body temperature 97.2 [degF] Dr. Donna Will Work Phone: [facility] 01-21-2023 13:48-0500 Body weight 103.[address] Donna Will Work Phone: [facility] 01-21-2023 13:48-0500 Diastolic blood pressure 57 mm[Hg] Dr. Donna Will Work Phone: [facility] 01-21-2023 13:48-0500 Heart rate 81 /min Dr. Donna Will Work Phone: [facility] 01-21-2023 13:48-0500 Respiratory rate 18 /min Dr. Donna Will Work Phone: [facility] 01-21-2023 13:48-0500 SaO2% (BldA) [Mass fraction] 92 % Dr. Donna Will Work Phone: [facility] 01-21-2023 13:48-0500 Systolic blood pressure 95 mm[Hg] Dr. Donna Will Work Phone: [facility] 11-26-2022 14:52-0400 Body mass index (BMI) [Ratio] 31.8 kg/m2 Dr. Donna Will Work Phone: [facility] 11-26-2022 14:52-0400 Body temperature 98.3 [degF] Dr. Donna Will Work Phone: [facility] 11-26-2022 14:52-0400 Body weight 103.[address] Donna Will Work Phone: [facility] 11-26-2022 14:52-0400 Diastolic blood pressure 64 mm[Hg] Dr. Donna Will Work Phone: [facility] 11-26-2022 14:52-0400 Heart rate 76 /min Dr. Donna Will Work Phone: [facility] 11-26-2022 14:52-0400 Inhaled oxygen flow rate 3 L/min Dr. Donna Will Work Phone: [facility] 11-26-2022 14:52-0400 Respiratory rate 18 /min Dr. Donna Will Work Phone: [facility] 11-26-2022 14:52-0400 SaO2% (BldA) [Mass fraction] 92 % Dr. Donna Will Work Phone: [facility] 11-26-2022 14:52-0400 Systolic blood pressure 119 mm[Hg] Dr. Donna Will Work Phone: [facility] 11-21-2022 15:15-0400 Body mass index (BMI) [Ratio] 32.2 kg/m2 Dr. Donna Will Work Phone: [facility] 11-21-2022 15:15-0400 Body temperature 97.4 [degF] Dr. Donna Will Work Phone: [facility] 11-21-2022 15:15-0400 Body weight 104.[address] Donna Will Work Phone: [facility] 11-21-2022 15:15-0400 Diastolic blood pressure 51 mm[Hg] Dr. Donna Will Work Phone: [facility] 11-21-2022 15:15-0400 Heart rate 92 /min Dr. Donna Will Work Phone: [facility] 11-21-2022 15:15-0400 Inhaled oxygen flow rate 3 L/min Dr. Donna Will Work Phone: [facility] 11-21-2022 15:15-0400 Respiratory rate 16 /min Dr. Donna Will Work Phone: [facility] 11-21-2022 15:15-0400 SaO2% (BldA) [Mass fraction] 91 % Dr. Donna Will Work Phone: [facility] 11-21-2022 15:15-0400 Systolic blood pressure 106 mm[Hg] Dr. Donna Will Work Phone: [facility] 11-17-2022 12:19-0400 Body temperature 98.1 [degF] [employer] Work Phone: [facility] 11-17-2022 12:19-0400 Diastolic blood pressure 58 mm[Hg] [employer] Work Phone: [facility] 11-17-2022 12:19-0400 Heart rate 68 /min [employer] Work Phone: [facility] 11-17-2022 12:19-0400 Inhaled oxygen flow rate 4 L/min [employer] Work Phone: [facility] 11-17-2022 12:19-0400 Respiratory rate 16 /min [employer] Work Phone: [facility] 11-17-2022 12:19-0400 SaO2% (BldA) [Mass fraction] 94 % [employer] Work Phone: [facility] 11-17-2022 12:19-0400 Systolic blood pressure 122 mm[Hg] [employer] Work Phone: [facility] 11-17-2022 04:44-0400 Body mass index (BMI) [Ratio] 34 kg/m2 [employer] Work Phone: [facility] 11-17-2022 04:44-0400 Body weight 110.5 kg [employer] Work Phone: [facility] 11-16-2022 12:21-0400 Body height 180.34 cm [employer] Work Phone: [facility] 11-15-2022 19:22-0400 Body temperature 98.5 [degF] [employer] Work Phone: [facility] 11-15-2022 19:22-0400 Diastolic blood pressure 74 mm[Hg] [employer] Work Phone: [facility] 11-15-2022 19:22-0400 Heart rate 78 /min [employer] Work Phone: [facility] 11-15-2022 19:22-0400 Inhaled oxygen flow rate 4 L/min [employer] Work Phone: [facility] 11-15-2022 19:22-0400 Respiratory rate 25 /min [employer] Work Phone: [facility] 11-15-2022 19:22-0400 SaO2% (BldA) [Mass fraction] 96 % [employer] Work Phone: [facility] 11-15-2022 19:22-0400 Systolic blood pressure 122 mm[Hg] [employer] Work Phone: [facility] 11-15-2022 14:30-0400 Body height 180.34 cm [employer] Work Phone: [facility] 11-15-2022 14:30-0400 Body mass index (BMI) [Ratio] 16 kg/m2 [employer] Work Phone: [facility] 11-15-2022 14:30-0400 Body weight 52.16 kg [employer] Work Phone: [facility] 11-08-2022 15:07-0400 Diastolic blood pressure 66 mm[Hg] [employer] Work Phone: [facility] 11-08-2022 15:07-0400 Heart rate 89 /min [employer] Work Phone: [facility] 11-08-2022 15:07-0400 Respiratory rate 16 /min [employer] Work Phone: [facility] 11-08-2022 15:07-0400 SaO2% (BldA) [Mass fraction] 96 % [employer] Work Phone: [facility] 11-08-2022 15:07-0400 Systolic blood pressure 139 mm[Hg] [employer] Work Phone: [facility] 11-08-2022 14:49-0400 Body temperature 97 [degF] [employer] Work Phone: [facility] 11-08-2022 14:49-0400 Inhaled oxygen flow rate 4 L/min [employer] Work Phone: [facility] 11-08-2022 13:12-0400 Body mass index (BMI) [Ratio] 33 kg/m2 [employer] Work Phone: [facility] 11-08-2022 13:12-0400 Body weight 107.55 kg [employer] Work Phone: [facility] 10-29-2022 13:39-0400 Body mass index (BMI) [Ratio] 33 kg/m2 [employer] Work Phone: [facility] 10-29-2022 13:39-0400 Body temperature 98.3 [degF] [employer] Work Phone: [facility] 10-29-2022 13:39-0400 Body weight 107.55 kg [employer] Work Phone: [facility] 10-29-2022 13:39-0400 Diastolic blood pressure 62 mm[Hg] [employer] Work Phone: [facility] 10-29-2022 13:39-0400 Heart rate 77 /min [employer] Work Phone: [facility] 10-29-2022 13:39-0400 Inhaled oxygen flow rate 4 L/min [employer] Work Phone: [facility] 10-29-2022 13:39-0400 Respiratory rate 18 /min [employer] Work Phone: [facility] 10-29-2022 13:39-0400 SaO2% (BldA) [Mass fraction] 93 % [employer] Work Phone: [facility] 10-29-2022 13:39-0400 Systolic blood pressure 124 mm[Hg] [employer] Work Phone: [facility] 09-30-2022 14:35-0400 Body mass index (BMI) [Ratio] 33.5 kg/m2 [employer] Work Phone: [facility] 09-30-2022 14:35-0400 Body temperature 96.5 [degF] [employer] Work Phone: [facility] 09-30-2022 14:35-0400 Body weight 108.89 kg [employer] Work Phone: [facility] 09-30-2022 14:35-0400 Diastolic blood pressure 56 mm[Hg] [employer] Work Phone: [facility] 09-30-2022 14:35-0400 Heart rate 92 /min [employer] Work Phone: [facility] 09-30-2022 14:35-0400 Inhaled oxygen flow rate 4 L/min [employer] Work Phone: [facility] 09-30-2022 14:35-0400 Respiratory rate 18 /min [employer] Work Phone: [facility] 09-30-2022 14:35-0400 SaO2% (BldA) [Mass fraction] 98 % [employer] Work Phone: [facility] 09-30-2022 14:35-0400 Systolic blood pressure 105 mm[Hg] [employer] Work Phone: [facility] 09-13-2022 11:37-0400 Body mass index (BMI) [Ratio] 33.3 kg/m2 [employer] Work Phone: [facility] 09-13-2022 11:37-0400 Body weight 108.4 kg [employer] Work Phone: [facility] 09-13-2022 11:37-0400 Diastolic blood pressure 71 mm[Hg] [employer] Work Phone: [facility] 09-13-2022 11:37-0400 Heart rate 74 /min [employer] Work Phone: [facility] 09-13-2022 11:37-0400 Inhaled oxygen flow rate 2 L/min [employer] Work Phone: [facility] 09-13-2022 11:37-0400 Respiratory rate 22 /min [employer] Work Phone: [facility] 09-13-2022 11:37-0400 SaO2% (BldA) [Mass fraction] 87 % [employer] Work Phone: [facility] 09-13-2022 11:37-0400 Systolic blood pressure 109 mm[Hg] [employer] Work Phone: [facility] 09-04-2022 13:18-0400 Body mass index (BMI) [Ratio] 33.2 kg/m2 [employer] Work Phone: [facility] 09-04-2022 13:18-0400 Body temperature 97.8 [degF] [employer] Work Phone: [facility] 09-04-2022 13:18-0400 Body weight 107.95 kg [employer] Work Phone: [facility] 09-04-2022 13:18-0400 Diastolic blood pressure 63 mm[Hg] [employer] Work Phone: [facility] 09-04-2022 13:18-0400 Heart rate 93 /min [employer] Work Phone: [facility] 09-04-2022 13:18-0400 Inhaled oxygen flow rate 2 L/min [employer] Work Phone: [facility] 09-04-2022 13:18-0400 Respiratory rate 18 /min [employer] Work Phone: [facility] 09-04-2022 13:18-0400 SaO2% (BldA) [Mass fraction] 93 % [employer] Work Phone: [facility] 09-04-2022 13:18-0400 Systolic blood pressure 112 mm[Hg] [employer] Work Phone: [facility] 08-29-2022 18:09-0400 Diastolic blood pressure 64 mm[Hg] [employer] Work Phone: [facility] 08-29-2022 18:09-0400 Systolic blood pressure 134 mm[Hg] [employer] Work Phone: [facility] 08-29-2022 17:30-0400 Body mass index (BMI) [Ratio] 32.6 kg/m2 [employer] Work Phone: [facility] 08-29-2022 17:30-0400 Body weight 106.14 kg [employer] Work Phone: [facility] 08-29-2022 17:30-0400 Heart rate 78 /min [employer] Work Phone: [facility] 08-29-2022 15:47-0400 Body height 180.34 cm [employer] Work Phone: [facility] 08-29-2022 15:47-0400 Body temperature 97 [degF] [employer] Work Phone: [facility] 08-29-2022 15:47-0400 Inhaled oxygen flow rate 1 L/min [employer] Work Phone: [facility] 08-29-2022 15:47-0400 Respiratory rate 19 /min [employer] Work Phone: [facility] 08-29-2022 15:47-0400 SaO2% (BldA) [Mass fraction] 90 % [employer] Work Phone: [facility] 08-14-2022 13:01-0400 Body mass index (BMI) [Ratio] 32.6 kg/m2 [employer] Work Phone: [facility] 08-14-2022 13:01-0400 Body temperature 98.4 [degF] [employer] Work Phone: [facility] 08-14-2022 13:01-0400 Body weight 106.25 kg [employer] Work Phone: [facility] 08-14-2022 13:01-0400 Diastolic blood pressure 59 mm[Hg] [employer] Work Phone: [facility] 08-14-2022 13:01-0400 Heart rate 86 /min [employer] Work Phone: [facility] 08-14-2022 13:01-0400 Inhaled oxygen flow rate 1 L/min [employer] Work Phone: [facility] 08-14-2022 13:01-0400 Respiratory rate 20 /min [employer] Work Phone: [facility] 08-14-2022 13:01-0400 SaO2% (BldA) [Mass fraction] 90 % [employer] Work Phone: [facility] 08-14-2022 13:01-0400 Systolic blood pressure 104 mm[Hg] [employer] Work Phone: [facility] 08-08-2022 13:55-0400 Body mass index (BMI) [Ratio] 32.7 kg/m2 [employer] Work Phone: [facility] 08-08-2022 13:55-0400 Body temperature 97.4 [degF] [employer] Work Phone: [facility] 08-08-2022 13:55-0400 Body weight 106.39 kg [employer] Work Phone: [facility] 08-08-2022 13:55-0400 Diastolic blood pressure 66 mm[Hg] [employer] Work Phone: [facility] 08-08-2022 13:55-0400 Heart rate 66 /min [employer] Work Phone: [facility] 08-08-2022 13:55-0400 Inhaled oxygen flow rate 1 L/min [employer] Work Phone: [facility] 08-08-2022 13:55-0400 Respiratory rate 16 /min [employer] Work Phone: [facility] 08-08-2022 13:55-0400 SaO2% (BldA) [Mass fraction] 91 % [employer] Work Phone: [facility] 08-08-2022 13:55-0400 Systolic blood pressure 110 mm[Hg] [employer] Work Phone: [facility] 07-23-2022 13:25-0400 Body mass index (BMI) [Ratio] 32.5 kg/m2 [employer] Work Phone: [facility] 07-23-2022 13:25-0400 Body temperature 97.7 [degF] [employer] Work Phone: [facility] 07-23-2022 13:25-0400 Body weight 105.94 kg [employer] Work Phone: [facility] 07-23-2022 13:25-0400 Diastolic blood pressure 72 mm[Hg] [employer] Work Phone: [facility] 07-23-2022 13:25-0400 Heart rate 78 /min [employer] Work Phone: [facility] 07-23-2022 13:25-0400 Inhaled oxygen flow rate 1.5 L/min [employer] Work Phone: [facility] 07-23-2022 13:25-0400 Respiratory rate 18 /min [employer] Work Phone: [facility] 07-23-2022 13:25-0400 SaO2% (BldA) [Mass fraction] 92 % [employer] Work Phone: [facility] 07-23-2022 13:25-0400 Systolic blood pressure 116 mm[Hg] [employer] Work Phone: [facility] 05-29-2022 07:55-0400 Body height 180.34 cm [employer] Work Phone: [facility] 05-29-2022 07:55-0400 Body mass index (BMI) [Ratio] 28.3 kg/m2 [employer] Work Phone: [facility] 05-29-2022 07:55-0400 Body temperature 97.5 [degF] [employer] Work Phone: [facility] 05-29-2022 07:55-0400 Body weight 92.07 kg [employer] Work Phone: [facility] 05-29-2022 07:55-0400 Diastolic blood pressure 65 mm[Hg] [employer] Work Phone: [facility] 05-29-2022 07:55-0400 Heart rate 67 /min [employer] Work Phone: [facility] 05-29-2022 07:55-0400 Inhaled oxygen flow rate 4.5 L/min [employer] Work Phone: [facility] 05-29-2022 07:55-0400 Respiratory rate 16 /min [employer] Work Phone: [facility] 05-29-2022 07:55-0400 SaO2% (BldA) [Mass fraction] 93 % [employer] Work Phone: [facility] 05-29-2022 07:55-0400 Systolic blood pressure 136 mm[Hg] [employer] Work Phone: [facility] 05-15-2022 12:30-0400 Body height 180.34 cm [employer] Work Phone: [facility] 05-15-2022 12:30-0400 Body weight 124.73 kg [employer] Work Phone: [facility] 05-15-2022 12:30-0400 Heart rate 87 /min [employer] Work Phone: [facility] 05-15-2022 12:30-0400 Inhaled oxygen flow rate 2 L/min [employer] Work Phone: [facility] 05-15-2022 12:30-0400 SaO2% (BldA) [Mass fraction] 82 % [employer] Work Phone: [facility] 05-13-2022 14:51-0400 Body temperature 97.4 [degF] [employer] Work Phone: [facility] 05-13-2022 14:51-0400 Diastolic blood pressure 44 mm[Hg] [employer] Work Phone: [facility] 05-13-2022 14:51-0400 Heart rate 80 /min [employer] Work Phone: [facility] 05-13-2022 14:51-0400 Respiratory rate 16 /min [employer] Work Phone: [facility] 05-13-2022 14:51-0400 SaO2% (BldA) [Mass fraction] 98 % [employer] Work Phone: [facility] 05-13-2022 14:51-0400 Systolic blood pressure 101 mm[Hg] [employer] Work Phone: [facility] 05-13-2022 13:57-0400 Body mass index (BMI) [Ratio] 28.4 kg/m2 [employer] Work Phone: [facility] 05-13-2022 13:57-0400 Body weight 92.53 kg [employer] Work Phone: [facility] 05-13-2022 13:57-0400 Inhaled oxygen flow rate 4 L/min [employer] Work Phone: [facility] 04-29-2022 10:49-0500 Body mass index (BMI) [Ratio] 28.5 kg/m2 [employer] Work Phone: [facility] 04-29-2022 10:49-0500 Body temperature 98.2 [degF] [employer] Work Phone: [facility] 04-29-2022 10:49-0500 Body weight 92.98 kg [employer] Work Phone: [facility] 04-29-2022 10:49-0500 Diastolic blood pressure 61 mm[Hg] [employer] Work Phone: [facility] 04-29-2022 10:49-0500 Heart rate 99 /min [employer] Work Phone: [facility] 04-29-2022 10:49-0500 Inhaled oxygen flow rate 93 L/min [employer] Work Phone: [facility] 04-29-2022 10:49-0500 Respiratory rate 18 /min [employer] Work Phone: [facility] 04-29-2022 10:49-0500 SaO2% (BldA) [Mass fraction] 93 % [employer] Work Phone: [facility] 04-29-2022 10:49-0500 Systolic blood pressure 110 mm[Hg] [employer] Work Phone: [facility] 02-27-2022 06:28-0500 Body height 180.34 cm [employer] Work Phone: [facility] 02-27-2022 06:28-0500 Body mass index (BMI) [Ratio] 27.4 kg/m2 [employer] Work Phone: [facility] 02-27-2022 06:28-0500 Body temperature 98.1 [degF] [employer] Work Phone: [facility] 02-27-2022 06:28-0500 Body weight 89.35 kg [employer] Work Phone: [facility] 02-27-2022 06:28-0500 Diastolic blood pressure 68 mm[Hg] [employer] Work Phone: [facility] 02-27-2022 06:28-0500 Heart rate 75 /min [employer] Work Phone: [facility] 02-27-2022 06:28-0500 Inhaled oxygen flow rate 2 L/min [employer] Work Phone: [facility] 02-27-2022 06:28-0500 Respiratory rate 20 /min [employer] Work Phone: [facility] 02-27-2022 06:28-0500 SaO2% (BldA) [Mass fraction] 77 % [employer] Work Phone: [facility] 02-27-2022 06:28-0500 Systolic blood pressure 131 mm[Hg] [employer] Work Phone: [facility] 02-16-2022 10:19-0500 Inhaled oxygen flow rate 3 L/min [employer] Work Phone: [facility] 02-16-2022 09:25-0500 Body temperature 98.6 [degF] [employer] Work Phone: [facility] 02-16-2022 09:25-0500 Diastolic blood pressure 67 mm[Hg] [employer] Work Phone: [facility] 02-16-2022 09:25-0500 Heart rate 83 /min [employer] Work Phone: [facility] 02-16-2022 09:25-0500 Respiratory rate 18 /min [employer] Work Phone: [facility] 02-16-2022 09:25-0500 SaO2% (BldA) [Mass fraction] 93 % [employer] Work Phone: [facility] 02-16-2022 09:25-0500 Systolic blood pressure 121 mm[Hg] [employer] Work Phone: [facility] 02-15-2022 11:05-0500 Inhaled oxygen concentration 45 % [employer] Work Phone: [facility] 02-14-2022 22:30-0500 Body height 180.34 cm [employer] Work Phone: [facility] Work Phone: 02-14-2022 22:30-0500 Body mass index (BMI) [Ratio] 26.9 kg/m2 [employer] Work Phone: [facility] 02-14-2022 22:30-0500 Body weight 87.4 kg [employer] Work Phone: [facility] 02-14-2022 21:03-0500 Body temperature 98.9 [degF] [employer] Work Phone: [facility] Work Phone: 02-14-2022 21:03-0500 Diastolic blood pressure 59 mm[Hg] [employer] Work Phone: [facility] Work Phone: 02-14-2022 21:03-0500 Heart rate 64 /min [employer] Work Phone: [facility] Work Phone: 02-14-2022 21:03-0500 Inhaled oxygen flow rate 4 L/min [employer] Work Phone: [facility] Work Phone: 02-14-2022 21:03-0500 Respiratory rate 16 /min [employer] Work Phone: [facility] Work Phone: 02-14-2022 21:03-0500 SaO2% (BldA) [Mass fraction] 94 % [employer] Work Phone: [facility] Work Phone: 02-14-2022 21:03-0500 Systolic blood pressure 117 mm[Hg] [employer] Work Phone: [facility] Work Phone: 02-14-2022 16:26-0500 Body height 180.34 cm [employer] Work Phone: [facility] Work Phone: 02-14-2022 16:26-0500 Body mass index (BMI) [Ratio] 27.7 kg/m2 [employer] Work Phone: [facility] Work Phone: 02-14-2022 16:26-0500 Body weight 90.2 kg [employer] Work Phone: [facility] Work Phone: 02-05-2022 11:33-0500 Body mass index (BMI) [Ratio] 27.8 kg/m2 [employer] Work Phone: [facility] 02-05-2022 11:33-0500 Body temperature 98.1 [degF] [employer] Work Phone: [facility] 02-05-2022 11:33-0500 Body weight 90.77 kg [employer] Work Phone: [facility] 02-05-2022 11:33-0500 Diastolic blood pressure 69 mm[Hg] [employer] Work Phone: [facility] 02-05-2022 11:33-0500 Heart rate 75 /min [employer] Work Phone: [facility] 02-05-2022 11:33-0500 Respiratory rate 17 /min [employer] Work Phone: [facility] 02-05-2022 11:33-0500 SaO2% (BldA) [Mass fraction] 92 % [employer] Work Phone: [facility] 02-05-2022 11:33-0500 Systolic blood pressure 124 mm[Hg] [employer] Work Phone: [facility] 01-28-2022 12:17-0500 Body temperature 97.6 [degF] [employer] Work Phone: [facility] 01-28-2022 12:17-0500 Diastolic blood pressure 61 mm[Hg] [employer] Work Phone: [facility] 01-28-2022 12:17-0500 Heart rate 57 /min [employer] Work Phone: [facility] 01-28-2022 12:17-0500 Inhaled oxygen flow rate 4 L/min [employer] Work Phone: [facility] 01-28-2022 12:17-0500 Respiratory rate 16 /min [employer] Work Phone: [facility] 01-28-2022 12:17-0500 SaO2% (BldA) [Mass fraction] 97 % [employer] Work Phone: [facility] 01-28-2022 12:17-0500 Systolic blood pressure 126 mm[Hg] [employer] Work Phone: [facility] 01-28-2022 10:04-0500 Body mass index (BMI) [Ratio] 27.8 kg/m2 [employer] Work Phone: [facility] 01-28-2022 10:04-0500 Body weight 90.71 kg [employer] Work Phone: [facility] 01-14-2022 12:20-0500 Body temperature 97.8 [degF] Dr. Donna Will Work Phone: [facility] Work Phone: 01-14-2022 12:20-0500 Diastolic blood pressure 67 mm[Hg] Dr. Donna Will Work Phone: [facility] Work Phone: 01-14-2022 12:20-0500 Heart rate 80 /min Dr. Donna Will Work Phone: [facility] Work Phone: 01-14-2022 12:20-0500 Respiratory rate 16 /min Dr. Donna Will Work Phone: [facility] Work Phone: 01-14-2022 12:20-0500 SaO2% (BldA) [Mass fraction] 96 % Dr. Donna Will Work Phone: [facility] Work Phone: 01-14-2022 12:20-0500 Systolic blood pressure 140 mm[Hg] Dr. Donna Will Work Phone: [facility] Work Phone: 01-14-2022 10:11-0500 Body height 180.[address] Donna Will Work Phone: [facility] Work Phone: 01-14-2022 10:11-0500 Inhaled oxygen flow rate 4 L/min Dr. Donna Will Work Phone: [facility] Work Phone: 01-07-2022 10:48-0500 Body mass index (BMI) [Ratio] 25.9 kg/m2 Dr. Donna Will Work Phone: [facility] Work Phone: 01-07-2022 10:48-0500 Body weight 84.[address] Donna Will Work Phone: [facility] Work Phone: 12-26-2021 14:21-0400 Body height 180.[address] Donna Will Work Phone: [facility] Work Phone: 12-26-2021 14:13-0400 Body mass index (BMI) [Ratio] 25.9 kg/m2 Dr. Donna Will Work Phone: [facility] 12-26-2021 14:13-0400 Body temperature 98.6 [degF] Dr. Donna Will Work Phone: [facility] 12-26-2021 14:13-0400 Body weight 84.[address] Donna Will Work Phone: [facility] 12-26-2021 14:13-0400 Diastolic blood pressure 65 mm[Hg] Dr. Donna Will Work Phone: [facility] 12-26-2021 14:13-0400 Heart rate 77 /min Dr. Donna Will Work Phone: [facility] 12-26-2021 14:13-0400 Respiratory rate 17 /min Dr. Donna Will Work Phone: [facility] 12-26-2021 14:13-0400 SaO2% (BldA) [Mass fraction] 89 % Dr. Donna Will Work Phone: [facility] 12-26-2021 14:13-0400 Systolic blood pressure 131 mm[Hg] Dr. Donna Will Work Phone: [facility] 12-11-2021 14:07-0400 Body temperature 98 [degF] Dr. Donna Will Work Phone: [facility] 12-11-2021 14:07-0400 Diastolic blood pressure 63 mm[Hg] Dr. Donna Will Work Phone: [facility] 12-11-2021 14:07-0400 Heart rate 72 /min Dr. Donna Will Work Phone: [facility] 12-11-2021 14:07-0400 Inhaled oxygen flow rate 2 L/min Dr. Donna Will Work Phone: [facility] 12-11-2021 14:07-0400 Respiratory rate 18 /min Dr. Donna Will Work Phone: [facility] 12-11-2021 14:07-0400 SaO2% (BldA) [Mass fraction] 94 % Dr. Donna Will Work Phone: [facility] 12-11-2021 14:07-0400 Systolic blood pressure 144 mm[Hg] Dr. Donna Will Work Phone: [facility] 12-11-2021 06:00-0400 Body weight 85.[address] Donna Will Work Phone: [facility] 12-10-2021 09:37-0400 Body height 180.[address] Donna Will Work Phone: [facility] Work Phone: 12-10-2021 09:37-0400 Body mass index (BMI) [Ratio] 26.5 kg/m2 Dr. Donna Will Work Phone: [facility] 12-08-2021 19:46-0400 Body temperature 99.2 [degF] Dr. Donna Will Work Phone: [facility] Work Phone: 12-08-2021 19:46-0400 Diastolic blood pressure 62 mm[Hg] Dr. Donna Will Work Phone: [facility] Work Phone: 12-08-2021 19:46-0400 Heart rate 94 /min Dr. Donna Will Work Phone: [facility] Work Phone: 12-08-2021 19:46-0400 Inhaled oxygen flow rate 5 L/min Dr. Donna Will Work Phone: [facility] Work Phone: 12-08-2021 19:46-0400 Respiratory rate 21 /min Dr. Donna Will Work Phone: [facility] Work Phone: 12-08-2021 19:46-0400 SaO2% (BldA) [Mass fraction] 95 % Dr. Donna Will Work Phone: [facility] Work Phone: 12-08-2021 19:46-0400 Systolic blood pressure 121 mm[Hg] Dr. Donna Will Work Phone: [facility] Work Phone: 12-08-2021 17:06-0400 Body height 180.[address] Donna Will Work Phone: [facility] Work Phone: 12-08-2021 17:06-0400 Body mass index (BMI) [Ratio] 26.9 kg/m2 Dr. Donna Will Work Phone: [facility] Work Phone: 12-08-2021 17:06-0400 Body weight 87.[address] Donna Will Work Phone: [facility] Work Phone: 10-26-2021 11:03-0400 Body temperature 97.8 [degF] Dr. Donna Will Work Phone: [facility] Work Phone: 10-26-2021 11:03-0400 Diastolic blood pressure 68 mm[Hg] Dr. Donna Will Work Phone: [facility] Work Phone: 10-26-2021 11:03-0400 Heart rate 68 /min Dr. Donna Will Work Phone: [facility] Work Phone: 10-26-2021 11:03-0400 Inhaled oxygen flow rate 3 L/min Dr. Donna Will Work Phone: [facility] Work Phone: 10-26-2021 11:03-0400 Respiratory rate 18 /min Dr. Donna Will Work Phone: [facility] Work Phone: 10-26-2021 11:03-0400 SaO2% (BldA) [Mass fraction] 94 % Dr. Donna Will Work Phone: [facility] Work Phone: 10-26-2021 11:03-0400 Systolic blood pressure 137 mm[Hg] Dr. Donna Will Work Phone: [facility] Work Phone: 10-25-2021 13:51-0400 Body height 180.[address] Donna Will Work Phone: [facility] Work Phone: 10-25-2021 13:51-0400 Body mass index (BMI) [Ratio] 25.9 kg/m2 Dr. Donna Will Work Phone: [facility] Work Phone: 10-25-2021 13:51-0400 Body weight 84.[address] Donna Will Work Phone: [facility] Work Phone: 10-23-2021 08:03-0400 Body mass index (BMI) [Ratio] 26.9 kg/m2 Dr. Donna Will Work Phone: [facility] Work Phone: 10-23-2021 08:03-0400 Body temperature 98 [degF] Dr. Donna Will Work Phone: [facility] Work Phone: 10-23-2021 08:03-0400 Body weight 87.[address] Donna Will Work Phone: [facility] Work Phone: 10-23-2021 08:03-0400 Diastolic blood pressure 63 mm[Hg] Dr. Donna Will Work Phone: [facility] Work Phone: 10-23-2021 08:03-0400 Heart rate 96 /min Dr. Donna Will Work Phone: [facility] Work Phone: 10-23-2021 08:03-0400 Inhaled oxygen flow rate 3 L/min Dr. Donna Will Work Phone: [facility] Work Phone: 10-23-2021 08:03-0400 Respiratory rate 18 /min Dr. Donna Will Work Phone: [facility] Work Phone: 10-23-2021 08:03-0400 SaO2% (BldA) [Mass fraction] 81 % Dr. Donna Will Work Phone: [facility] Work Phone: 10-23-2021 08:03-0400 Systolic blood pressure 107 mm[Hg] Dr. Donna Will Work Phone: [facility] Work Phone: 10-16-2021 15:32-0400 Body mass index (BMI) [Ratio] 25.9 kg/m2 Dr. Donna Will Work Phone: [facility] Work Phone: 10-16-2021 15:32-0400 Body temperature 98.3 [degF] Dr. Donna Will Work Phone: [facility] Work Phone: 10-16-2021 15:32-0400 Body weight 84.[address] Donna Will Work Phone: [facility] Work Phone: 10-16-2021 15:32-0400 Diastolic blood pressure 70 mm[Hg] Dr. Donna Will Work Phone: [facility] Work Phone: 10-16-2021 15:32-0400 Heart rate 79 /min Dr. Donna Will Work Phone: [facility] Work Phone: 10-16-2021 15:32-0400 Respiratory rate 17 /min Dr. Donna Will Work Phone: [facility] Work Phone: 10-16-2021 15:32-0400 SaO2% (BldA) [Mass fraction] 95 % Dr. Donna Will Work Phone: [facility] Work Phone: 10-16-2021 15:32-0400 Systolic blood pressure 118 mm[Hg] Dr. Donna Will Work Phone: [facility] Work Phone: 10-09-2021 14:14-0400 Body mass index (BMI) [Ratio] 26.4 kg/m2 Dr. Donna Will Work Phone: [facility] Work Phone: 10-09-2021 14:14-0400 Body weight 86.[address] Donna Will Work Phone: [facility] Work Phone: 10-09-2021 14:14-0400 Diastolic blood pressure 69 mm[Hg] Dr. Donna Will Work Phone: [facility] Work Phone: 10-09-2021 14:14-0400 Heart rate 88 /min Dr. Donna Will Work Phone: [facility] Work Phone: 10-09-2021 14:14-0400 Inhaled oxygen flow rate 2.5 L/min Dr. Donna Will Work Phone: [facility] Work Phone: 10-09-2021 14:14-0400 Respiratory rate 18 /min Dr. Donna Will Work Phone: [facility] Work Phone: 10-09-2021 14:14-0400 SaO2% (BldA) [Mass fraction] 98 % Dr. Donna Will Work Phone: [facility] Work Phone: 10-09-2021 14:14-0400 Systolic blood pressure 123 mm[Hg] Dr. Donna Will Work Phone: [facility] Work Phone: 10-02-2021 14:00-0400 Respiratory rate 24 /min Dr. Donna Will Work Phone: [facility] Work Phone: 10-02-2021 13:50-0400 Body temperature 98.1 [degF] Dr. Donna Will Work Phone: [facility] Work Phone: 10-02-2021 13:50-0400 Diastolic blood pressure 56 mm[Hg] Dr. Donna Will Work Phone: [facility] Work Phone: 10-02-2021 13:50-0400 Heart rate 89 /min Dr. Donna Will Work Phone: [facility] Work Phone: 10-02-2021 13:50-0400 Inhaled oxygen flow rate 3 L/min Dr. Donna Will Work Phone: [facility] Work Phone: 10-02-2021 13:50-0400 SaO2% (BldA) [Mass fraction] 97 % Dr. Donna Will Work Phone: [facility] Work Phone: 10-02-2021 13:50-0400 Systolic blood pressure 114 mm[Hg] Dr. Donna Will Work Phone: [facility] Work Phone: 10-02-2021 06:00-0400 Body weight 83.[address] Donna Will Work Phone: [facility] Work Phone: 10-01-2021 19:46-0400 Body height 180.[address] Donna Will Work Phone: [facility] Work Phone: 10-01-2021 19:46-0400 Body mass index (BMI) [Ratio] 25.7 kg/m2 Dr. Donna Will Work Phone: [facility] Work Phone: 10-01-2021 18:00-0400 Body temperature 98.4 [degF] Dr. Donna Will Work Phone: [facility] Work Phone: 10-01-2021 18:00-0400 Diastolic blood pressure 58 mm[Hg] Dr. Donna Will Work Phone: [facility] Work Phone: 10-01-2021 18:00-0400 Heart rate 84 /min Dr. Donna Will Work Phone: [facility] Work Phone: 10-01-2021 18:00-0400 Inhaled oxygen flow rate 4 L/min Dr. Donna Will Work Phone: [facility] Work Phone: 10-01-2021 18:00-0400 Respiratory rate 19 /min Dr. Donna Will Work Phone: [facility] Work Phone: 10-01-2021 18:00-0400 SaO2% (BldA) [Mass fraction] 95 % Dr. Donna Will Work Phone: [facility] Work Phone: 10-01-2021 18:00-0400 Systolic blood pressure 114 mm[Hg] Dr. Donna Will Work Phone: [facility] Work Phone: 10-01-2021 14:04-0400 Body height 180.[address] Donna Will Work Phone: [facility] Work Phone: 10-01-2021 14:04-0400 Body mass index (BMI) [Ratio] 26.1 kg/m2 Dr. Donna Will Work Phone: [facility] Work Phone: 10-01-2021 14:04-0400 Body weight 84.[address] Donna Will Work Phone: [facility] Work Phone: 09-03-2021 13:52-0400 Body temperature 97.5 [degF] Dr. Donna Will Work Phone: [facility] Work Phone: 09-03-2021 13:52-0400 Diastolic blood pressure 75 mm[Hg] Dr. Donna Will Work Phone: [facility] Work Phone: 09-03-2021 13:52-0400 Heart rate 79 /min Dr. Donna Will Work Phone: [facility] Work Phone: 09-03-2021 13:52-0400 Inhaled oxygen flow rate 4 L/min Dr. Donna Will Work Phone: [facility] Work Phone: 09-03-2021 13:52-0400 Respiratory rate 18 /min Dr. Donna Will Work Phone: [facility] Work Phone: 09-03-2021 13:52-0400 SaO2% (BldA) [Mass fraction] 97 % Dr. Donna Will Work Phone: [facility] Work Phone: 09-03-2021 13:52-0400 Systolic blood pressure 127 mm[Hg] Dr. Donna Will Work Phone: [facility] Work Phone: 08-21-2021 12:06-0400 Body height 187.[address] Donna Will Work Phone: [facility] Work Phone: 08-07-2021 18:22-0400 Body temperature 97.8 [degF] Dr. Donna Will Work Phone: [facility] Work Phone: 08-07-2021 18:22-0400 Diastolic blood pressure 76 mm[Hg] Dr. Donna Will Work Phone: [facility] Work Phone: 08-07-2021 18:22-0400 Heart rate 100 /min Dr. Donna Will Work Phone: [facility] Work Phone: 08-07-2021 18:22-0400 Inhaled oxygen flow rate 4 L/min Dr. Donna Will Work Phone: [facility] Work Phone: 08-07-2021 18:22-0400 Respiratory rate 18 /min Dr. Donna Will Work Phone: [facility] Work Phone: 08-07-2021 18:22-0400 SaO2% (BldA) [Mass fraction] 98 % Dr. Donna Will Work Phone: [facility] Work Phone: 08-07-2021 18:22-0400 Systolic blood pressure 128 mm[Hg] Dr. Donna Will Work Phone: [facility] Work Phone: 08-07-2021 11:11-0400 Body height 180.[address] Donna Will Work Phone: [facility] Work Phone: 08-07-2021 11:11-0400 Body weight 80.[address] Donna Will Work Phone: [facility] Work Phone: 08-06-2021 18:56-0400 Heart rate 107 /min Dr. Donna Will Work Phone: [facility] Work Phone: 08-06-2021 18:56-0400 Respiratory rate 19 /min Dr. Donna Will Work Phone: [facility] Work Phone: 08-06-2021 17:44-0400 SaO2% (BldA) [Mass fraction] 100 % Dr. Donna Will Work Phone: [facility] Work Phone: 08-06-2021 16:34-0400 Body height 180.[address] Donna Will Work Phone: [facility] Work Phone: 08-06-2021 16:34-0400 Body mass index (BMI) [Ratio] 24.8 kg/m2 Dr. Donna Will Work Phone: [facility] Work Phone: 08-06-2021 16:34-0400 Body weight 80.[address] Donna Will Work Phone: [facility] Work Phone: 08-06-2021 16:33-0400 Body temperature 98 [degF] Dr. Donna Will Work Phone: [facility] Work Phone: 08-06-2021 16:33-0400 Diastolic blood pressure 100 mm[Hg] Dr. Donna Will Work Phone: [facility] Work Phone: 08-06-2021 16:33-0400 Systolic blood pressure 141 mm[Hg] Dr. Donna Will Work Phone: [facility] Work Phone: 08-06-2021 15:51-0400 Body temperature 97.8 [degF] Dr. Donna Will Work Phone: [facility] Work Phone: 08-06-2021 15:51-0400 Diastolic blood pressure 64 mm[Hg] Dr. Donna Will Work Phone: [facility] Work Phone: 08-06-2021 15:51-0400 Heart rate 102 /min Dr. Donna Will Work Phone: [facility] Work Phone: 08-06-2021 15:51-0400 Respiratory rate 18 /min Dr. Donna Will Work Phone: [facility] Work Phone: 08-06-2021 15:51-0400 SaO2% (BldA) [Mass fraction] 97 % Dr. Donna Will Work Phone: [facility] Work Phone: 08-06-2021 15:51-0400 Systolic blood pressure 122 mm[Hg] Dr. Donna Will Work Phone: [facility] Work Phone: 08-06-2021 12:07-0400 Body height 180.[address] Donna Will Work Phone: [facility] Work Phone: 08-06-2021 12:07-0400 Body mass index (BMI) [Ratio] 25.2 kg/m2 Dr. Donna Will Work Phone: [facility] Work Phone: 08-06-2021 12:07-0400 Body weight 82.[address] Donna Will Work Phone: [facility] Work Phone: 07-24-2021 08:49-0400 Body height 187.[address] Donna Will Work Phone: [facility] Work Phone: 07-24-2021 08:49-0400 Body mass index (BMI) [Ratio] 23.1 kg/m2 Dr. Donna Will Work Phone: [facility] Work Phone: 07-24-2021 08:49-0400 Body temperature 97.1 [degF] Dr. Donna Will Work Phone: [facility] Work Phone: 07-24-2021 08:49-0400 Body weight 81.[address] Donna Will Work Phone: [facility] Work Phone: 07-24-2021 08:49-0400 Diastolic blood pressure 60 mm[Hg] Dr. Donna Will Work Phone: [facility] Work Phone: 07-24-2021 08:49-0400 Heart rate 91 /min Dr. Donna Will Work Phone: [facility] Work Phone: 07-24-2021 08:49-0400 Inhaled oxygen flow rate 3 L/min Dr. Donna Will Work Phone: [facility] Work Phone: 07-24-2021 08:49-0400 Respiratory rate 14 /min Dr. Donna Will Work Phone: [facility] Work Phone: 07-24-2021 08:49-0400 SaO2% (BldA) [Mass fraction] 93 % Dr. Donna Will Work Phone: [facility] Work Phone: 07-24-2021 08:49-0400 Systolic blood pressure 94 mm[Hg] Dr. Donna Will Work Phone: [facility] Work Phone: 07-24-2021 07:42-0400 Body mass index (BMI) [Ratio] 23.1 kg/m2 Dr. Donna Will Work Phone: [facility] Work Phone: 07-24-2021 07:42-0400 Body temperature 97 [degF] Dr. Donna Will Work Phone: [facility] Work Phone: 07-24-2021 07:42-0400 Body weight 81.[address] Donna Will Work Phone: [facility] Work Phone: 07-24-2021 07:42-0400 Diastolic blood pressure 46 mm[Hg] Dr. Donna Will Work Phone: [facility] Work Phone: 07-24-2021 07:42-0400 Heart rate 79 /min Dr. Donna Will Work Phone: [facility] Work Phone: 07-24-2021 07:42-0400 Inhaled oxygen flow rate 3 L/min Dr. Donna Will Work Phone: [facility] Work Phone: 07-24-2021 07:42-0400 Respiratory rate 16 /min Dr. Donna Will Work Phone: [facility] Work Phone: 07-24-2021 07:42-0400 SaO2% (BldA) [Mass fraction] 93 % Dr. Donna Will Work Phone: [facility] Work Phone: 07-24-2021 07:42-0400 Systolic blood pressure 94 mm[Hg] Dr. Donna Will Work Phone: [facility] Work Phone: 07-24-2021 07:42-0400 Body mass index (BMI) [Ratio] 23.1 kg/m2 Dr. Donna Will Work Phone: [facility] Work Phone: 07-24-2021 07:42-0400 Body temperature 97 [degF] Dr. Donna Will Work Phone: [facility] Work Phone: 07-24-2021 07:42-0400 Body weight 81.[address] Donna Will Work Phone: [facility] Work Phone: 07-24-2021 07:42-0400 Diastolic blood pressure 46 mm[Hg] Dr. oDnna Will Work Phone: [facility] Work Phone: 07-24-2021 07:42-0400 Heart rate 79 /min Dr. Donna Will Work Phone: [facility] Work Phone: 07-24-2021 07:42-0400 Respiratory rate 16 /min Dr. Donna Will Work Phone: [facility] Work Phone: 07-24-2021 07:42-0400 SaO2% (BldA) [Mass fraction] 93 % Dr. Donna Will Work Phone: [facility] Work Phone: 07-24-2021 07:42-0400 Systolic blood pressure 94 mm[Hg] Dr. Donna Will Work Phone: [facility] Work Phone: 06-25-2021 13:34-0400 Body mass index (BMI) [Ratio] 24.6 kg/m2 Dr. Donna Will Work Phone: [facility] Work Phone: 06-25-2021 13:34-0400 Body temperature 97.3 [degF] Dr. Donna Will Work Phone: [facility] Work Phone: 06-25-2021 13:34-0400 Body weight 87.[address] Donna Will Work Phone: [facility] Work Phone: 06-25-2021 13:34-0400 Diastolic blood pressure 65 mm[Hg] Dr. Donna Will Work Phone: [facility] Work Phone: 06-25-2021 13:34-0400 Heart rate 85 /min Dr. Donna Will Work Phone: [facility] Work Phone: 06-25-2021 13:34-0400 Inhaled oxygen flow rate 4 L/min Dr. Donna Will Work Phone: [facility] Work Phone: 06-25-2021 13:34-0400 Respiratory rate 16 /min Dr. Donna Will Work Phone: [facility] Work Phone: 06-25-2021 13:34-0400 SaO2% (BldA) [Mass fraction] 93 % Dr. Donna Will Work Phone: [facility] Work Phone: 06-25-2021 13:34-0400 Systolic blood pressure 110 mm[Hg] Dr. Donna Will Work Phone: [facility] Work Phone: 06-25-2021 13:34-0400 Body mass index (BMI) [Ratio] 24.6 kg/m2 Dr. Donna Will Work Phone: [facility] Work Phone: 06-25-2021 13:34-0400 Body temperature 97.3 [degF] Dr. Donna Will Work Phone: [facility] Work Phone: 06-25-2021 13:34-0400 Body weight 87.[address] Donna Will Work Phone: [facility] Work Phone: 06-25-2021 13:34-0400 Diastolic blood pressure 65 mm[Hg] Dr. Donna Will Work Phone: [facility] Work Phone: 06-25-2021 13:34-0400 Heart rate 85 /min Dr. Donna Will Work Phone: [facility] Work Phone: 06-25-2021 13:34-0400 Respiratory rate 16 /min Dr. Donna Will Work Phone: [facility] Work Phone: 06-25-2021 13:34-0400 SaO2% (BldA) [Mass fraction] 93 % Dr. Donna Will Work Phone: [facility] Work Phone: 06-25-2021 13:34-0400 Systolic blood pressure 110 mm[Hg] Dr. Donna Will Work Phone: [facility] Work Phone: 05-29-2021 08:46-0400 Body mass index (BMI) [Ratio] 25.1 kg/m2 Dr. Donna Will Work Phone: [facility] Work Phone: 05-29-2021 08:46-0400 Body temperature 96.5 [degF] Dr. Donna Will Work Phone: [facility] Work Phone: 05-29-2021 08:46-0400 Body weight 88.[address] Donna Will Work Phone: [facility] Work Phone: 05-29-2021 08:46-0400 Diastolic blood pressure 84 mm[Hg] Dr. Donna Will Work Phone: [facility] Work Phone: 05-29-2021 08:46-0400 Heart rate 92 /min Dr. Donna Will Work Phone: [facility] Work Phone: 05-29-2021 08:46-0400 Respiratory rate 14 /min Dr. Donna Will Work Phone: [facility] Work Phone: 05-29-2021 08:46-0400 SaO2% (BldA) [Mass fraction] 98 % Dr. Donna Will Work Phone: [facility] Work Phone: 05-29-2021 08:46-0400 Systolic blood pressure 128 mm[Hg] Dr. Donna Will Work Phone: [facility] Work Phone: 05-29-2021 08:46-0400 Body height 187.[address] Donna Will Work Phone: [facility] Work Phone: 05-29-2021 08:46-0400 Body mass index (BMI) [Ratio] 25.1 kg/m2 Dr. Donna Will Work Phone: [facility] Work Phone: 05-29-2021 08:46-0400 Body temperature 96.5 [degF] Dr. Donna Will Work Phone: [facility] Work Phone: 05-29-2021 08:46-0400 Body weight 88.[address] Donna Will Work Phone: [facility] Work Phone: 05-29-2021 08:46-0400 Diastolic blood pressure 84 mm[Hg] Dr. Donna Will Work Phone: [facility] Work Phone: 05-29-2021 08:46-0400 Heart rate 92 /min Dr. Donna Will Work Phone: [facility] Work Phone: 05-29-2021 08:46-0400 Respiratory rate 14 /min Dr. Donna Will Work Phone: [facility] Work Phone: 05-29-2021 08:46-0400 SaO2% (BldA) [Mass fraction] 98 % Dr. Donna Will Work Phone: [facility] Work Phone: 05-29-2021 08:46-0400 Systolic blood pressure 128 mm[Hg] Dr. Donna Will Work Phone: [facility] Work Phone: 05-18-2021 10:00-0400 Heart rate 73 /min Dr. Donna Will Work Phone: [facility] Work Phone: 05-18-2021 10:00-0400 Respiratory rate 18 /min Dr. Donna Will Work Phone: [facility] Work Phone: 05-18-2021 10:00-0400 SaO2% (BldA) [Mass fraction] 97 % Dr. Donna Will Work Phone: [facility] Work Phone: 05-18-2021 08:07-0400 Inhaled oxygen flow rate 4 L/min Dr. Donna Will Work Phone: [facility] Work Phone: 05-18-2021 05:04-0400 Diastolic blood pressure 63 mm[Hg] Dr. Donna Will Work Phone: [facility] Work Phone: 05-18-2021 05:04-0400 Systolic blood pressure 112 mm[Hg] Dr. Donna Will Work Phone: [facility] Work Phone: 05-17-2021 14:47-0400 Body temperature 96.9 [degF] Dr. Donna Will Work Phone: [facility] Work Phone: 05-15-2021 10:13-0400 Body weight 87.[address] Donna Will Work Phone: [facility] Work Phone: 05-14-2021 20:14-0400 Inhaled oxygen concentration 98 % Dr. Donna Will Work Phone: [facility] Work Phone: 05-04-2021 14:55-0500 Body mass index (BMI) [Ratio] 26.1 kg/m2 Dr. Donna Will Work Phone: [facility] Work Phone: 05-04-2021 13:55-0500 Body mass index (BMI) [Ratio] 26.1 kg/m2 Dr. Donna Will Work Phone: [facility] Work Phone: 05-04-2021 12:18-0500 SaO2% (BldA) [Mass fraction] 92 % Dr. Donna Will Work Phone: [facility] Work Phone: 05-04-2021 10:24-0500 Body temperature 98.5 [degF] Dr. Donna Will Work Phone: [facility] Work Phone: 05-04-2021 10:24-0500 Diastolic blood pressure 76 mm[Hg] Dr. Donna Will Work Phone: [facility] Work Phone: 05-04-2021 10:24-0500 Heart rate 98 /min Dr. Donna Will Work Phone: [facility] Work Phone: 05-04-2021 10:24-0500 Respiratory rate 18 /min Dr. Donna Will Work Phone: [facility] Work Phone: 05-04-2021 10:24-0500 Systolic blood pressure 134 mm[Hg] Dr. Donna Will Work Phone: [facility] Work Phone: 05-04-2021 05:00-0500 Body weight [address] Donna Will Work Phone: [facility] Work Phone: 05-02-2021 12:57-0500 Body mass index (BMI) [Ratio] 28.8 kg/m2 Dr. Donna Will Work Phone: [facility] Work Phone: 04-29-2021 05:17-0500 Diastolic blood pressure 54 mm[Hg] Dr. Donna Will Work Phone: [facility] Work Phone: 04-29-2021 05:17-0500 Heart rate 70 /min Dr. Donna Will Work Phone: [facility] Work Phone: 04-29-2021 05:17-0500 Systolic blood pressure 108 mm[Hg] Dr. Donna Will Work Phone: [facility] Work Phone: 04-29-2021 01:10-0500 Respiratory rate 20 /min Dr. Donna Will Work Phone: [facility] Work Phone: 04-29-2021 01:10-0500 SaO2% (BldA) [Mass fraction] 92 % Dr. Donna Will Work Phone: [facility] Work Phone: 04-29-2021 00:34-0500 Body temperature 98.6 [degF] Dr. Donna Will Work Phone: [facility] Work Phone: 04-28-2021 20:00-0500 Inhaled oxygen concentration 4 % Dr. Donna Will Work Phone: [facility] Work Phone: 04-27-2021 12:51-0500 Body weight 89.[address] Donna Will Work Phone: [facility] Work Phone: 04-26-2021 15:23-0500 Body mass index (BMI) [Ratio] 28.4 kg/m2 Dr. Donna Will Work Phone: [facility] Work Phone: 04-26-2021 14:43-0500 Body temperature 99.2 [degF] Dr. Donna Will Work Phone: [facility] Work Phone: 04-26-2021 14:43-0500 Diastolic blood pressure 62 mm[Hg] Dr. Donna Will Work Phone: [facility] Work Phone: 04-26-2021 14:43-0500 Heart rate 96 /min Dr. Donna Will Work Phone: [facility] Work Phone: 04-26-2021 14:43-0500 Respiratory rate 16 /min Dr. Donna Will Work Phone: [facility] Work Phone: 04-26-2021 14:43-0500 SaO2% (BldA) [Mass fraction] 93 % Dr. Donna Will Work Phone: [facility] Work Phone: 04-26-2021 14:43-0500 Systolic blood pressure 127 mm[Hg] Dr. Donna Will Work Phone: [facility] Work Phone: 04-25-2021 13:20-0500 Body weight [address] Donna Will Work Phone: [facility] Work Phone: 04-22-2021 16:37-0500 Inhaled oxygen concentration 35 % Dr. Donna Will Work Phone: [facility] Work Phone: 04-21-2021 19:15-0500 Body mass index (BMI) [Ratio] 27.7 kg/m2 Dr. Donna Will Work Phone: [facility] Work Phone: 04-19-2021 13:21-0500 Body mass index (BMI) [Ratio] 28.2 kg/m2 Dr. Donna Will Work Phone: [facility] Work Phone: 04-19-2021 13:21-0500 Body temperature 95.3 [degF] Dr. Donna Will Work Phone: [facility] Work Phone: 04-19-2021 13:21-0500 Body weight 89.[address] Donna Will Work Phone: [facility] Work Phone: 04-19-2021 13:21-0500 Diastolic blood pressure 64 mm[Hg] Dr. Donna Will Work Phone: [facility] Work Phone: 04-19-2021 13:21-0500 Heart rate 77 /min Dr. Donna Will Work Phone: [facility] Work Phone: 04-19-2021 13:21-0500 Respiratory rate 18 /min Dr. Donna Will Work Phone: [facility] Work Phone: 04-19-2021 13:21-0500 SaO2% (BldA) [Mass fraction] 94 % Dr. Donna Will Work Phone: [facility] Work Phone: 04-19-2021 13:21-0500 Systolic blood pressure 128 mm[Hg] Dr. Donna Will Work Phone: [facility] Work Phone: 04-11-2021 13:53-0500 Heart rate 88 /min Dr. Donna Will Work Phone: [facility] Work Phone: 04-11-2021 13:53-0500 Respiratory rate 20 /min Dr. Donna Will Work Phone: [facility] Work Phone: 04-11-2021 13:20-0500 SaO2% (BldA) [Mass fraction] 92 % Dr. Donna Will Work Phone: [facility] Work Phone: 04-11-2021 10:40-0500 Body temperature 97.9 [degF] Dr. Donna Will Work Phone: [facility] Work Phone: 04-11-2021 10:20-0500 Diastolic blood pressure 52 mm[Hg] Dr. Donna Will Work Phone: [facility] Work Phone: 04-11-2021 10:20-0500 Systolic blood pressure 111 mm[Hg] Dr. Donna Will Work Phone: [facility] Work Phone: 04-09-2021 14:39-0500 Body weight 93.[address] Donna Will Work Phone: [facility] Work Phone: 04-08-2021 16:22-0500 Body mass index (BMI) [Ratio] 29.6 kg/m2 Dr. Donna Will Work Phone: [facility] Work Phone: 03-28-2021 08:13-0500 Body temperature 95.9 [degF] Dr. Donna Will Work Phone: [facility] Work Phone: 03-28-2021 08:13-0500 Body weight 97.[address] Donna Will Work Phone: [facility] Work Phone: 03-28-2021 08:13-0500 Diastolic blood pressure 60 mm[Hg] Dr. Donna Will Work Phone: [facility] Work Phone: 03-28-2021 08:13-0500 Heart rate 74 /min Dr. Donna Will Work Phone: [facility] Work Phone: 03-28-2021 08:13-0500 Respiratory rate 16 /min Dr. Donna Will Work Phone: [facility] Work Phone: 03-28-2021 08:13-0500 SaO2% (BldA) [Mass fraction] 93 % Dr. Donna Will Work Phone: [facility] Work Phone: 03-28-2021 08:13-0500 Systolic blood pressure 118 mm[Hg] Dr. Donna Will Work Phone: [facility] Work Phone: 03-25-2021 08:18-0500 SaO2% (BldA) [Mass fraction] 91 % Dr. Donna Will Work Phone: [facility] Work Phone: 03-25-2021 08:07-0500 Heart rate 64 /min Dr. Donna Will Work Phone: [facility] Work Phone: 03-25-2021 07:45-0500 Body temperature 98.7 [degF] Dr. Donna Will Work Phone: [facility] Work Phone: 03-25-2021 07:45-0500 Diastolic blood pressure 58 mm[Hg] Dr. Donna Will Work Phone: [facility] Work Phone: 03-25-2021 07:45-0500 Respiratory rate 16 /min Dr. Donna Will Work Phone: [facility] Work Phone: 03-25-2021 07:45-0500 Systolic blood pressure 121 mm[Hg] Dr. Donna Will Work Phone: [facility] Work Phone: 03-25-2021 04:41-0500 Body weight 99.[address] Donna Will Work Phone: [facility] Work Phone: 03-23-2021 00:57-0500 Body mass index (BMI) [Ratio] 30.2 kg/m2 Dr. Donna Will Work Phone: [facility] Work Phone: 03-14-2021 12:34-0500 SaO2% (BldA) [Mass fraction] 97 % Dr. Donna Will Work Phone: [facility] Work Phone: 03-14-2021 11:44-0500 Heart rate 72 /min Dr. Donna Will Work Phone: [facility] Work Phone: 03-14-2021 11:44-0500 Respiratory rate 18 /min Dr. Donna Will Work Phone: [facility] Work Phone: 03-14-2021 08:41-0500 Body temperature 96 [degF] Dr. Donna Will Work Phone: [facility] Work Phone: 03-14-2021 08:41-0500 Diastolic blood pressure 60 mm[Hg] Dr. Donna Will Work Phone: [facility] Work Phone: 03-14-2021 08:41-0500 Systolic blood pressure 141 mm[Hg] Dr. Donna Will Work Phone: [facility] Work Phone: 03-14-2021 08:39-0500 Body mass index (BMI) [Ratio] 30 kg/m2 Dr. Donna Will Work Phone: [facility] Work Phone: 03-14-2021 08:39-0500 Body weight 97.[address] Donna Will Work Phone: [facility] Work Phone: Encounters Encounter Date Encounter Type Care Provider Facility Start: 12-06-2024 End: 12-06-2024 Dr. Tobi Zapata MD -[facility] Work Phone: Start: 12-06-2024 End: 12-06-2024 ambulatory [facility] Facility:[facility] Start: 11-25-2024 End: 11-25-[address] Donna Will MD Work Phone: -[facility] [place] Start: 11-25-2024 End: 11-25-2024 Dr. Tobi Zapata MD -[facility] [place] Work Phone: Start: 11-25-2024 End: 11-25-2024 ambulatory [facility] Facility:[facility] Start: 10-14-2024 End: 10-14-[address] Donna Will MD Work Phone: -Sleep Lab Start: 10-14-2024 End: 10-14-2024 GOLF INSTRUCTOR Gris Naik -Sleep Lab Work Phone: Start: 10-14-2024 End: 10-14-2024 ambulatory Gris Naik Facility:[facility] Start: 10-08-2024 End: 10-08-2024 Elizabeth HILARIO -[facility] Work Phone: Start: 10-08-2024 End: 10-08-2024 ambulatory Elizabeth HILARIO Facility[place] Start: 09-24-2024 End: 09-24-[address] Donna Will MD Work Phone: -[facility] Start: 09-24-2024 End: 09-24-2024 GOLF INSTRUCTOR Gris Naik -[facility] Work Phone: Start: 09-24-2024 End: 09-24-2024 ambulatory Donna Will Facility:[facility] Start: 09-16-2024 End: 09-16-2024 Dr. Donna Will MD -[facility] Work Phone: Start: 09-16-2024 End: 09-16-[address] Donna Will MD Work Phone: -[facility] Start: 09-13-2024 End: 09-13-[address] Donna Will MD Work Phone: -[facility] Start: 09-13-2024 End: 09-13-2024 Dr. Tobi Zapata MD -[facility] Work Phone: Start: 08-25-2024 Dr. Clive Sharp MD -[facility] Work Phone: Start: 08-24-2024 Dr. Clive Sharp MD -[facility] Work Phone: Start: 08-23-2024 ambulatory [facility] Facility :[facility] Start: 08-23-2024 Dr. Warren Murray MD -[facility] Start: 08-23-2024 Dr. Clive Sharp MD [facility] Work Phone: Start: 08-22-2024 Dr. Clive Sharp MD -[facility] Work Phone: Start: 08-21-2024 ambulatory Donna [facility] Facility :[facility] Start: 08-21-2024 End: 08-25-2024 Evaluation and management of inpatient Dr. Donna Will MD Work Phone: -Intensive Care Unit Start: 08-21-2024 End: 08-25-2024 Dr. Clive Sharp MD -[facility] Work Phone: Start: 08-13-2024 ambulatory [facility] Facility :[facility] Start: 08-03-2024 Dr. Tobi Zapata MD -[facility] Start: 07-27-2024 Dr. Tobi Zapata MD -[facility] Start: 07-25-2024 ambulatory Wilberto Antonio ty:[facility] Start: 07-23-2024 End: 07-23-[address] Donna Will MD Work Phone: [facility] Work Phone: Start: 07-23-2024 End: 07-23-2024 Dr. Tobi Zapata MD -[facility] [place] Work Phone: Start: 07-23-2024 End: 07-23-2024 ambulatory Tobi Zapata Facility:[facility] Start: 07-21-2024 End: 07-21-[address] Donna Will MD Work Phone: [facility] Work Phone: Start: 07-21-2024 End: 07-21-2024 Dr. Wilberto Villafuerte MD -[facility] Work Phone: Start: 07-20-2024 End: 07-21-[address] Donna Will MD Work Phone: [facility] Work Phone: Start: 07-20-2024 End: 07-20-2024 Dr. Tobi Zapata MD -[facility] Work Phone: Start: 07-14-2024 End: 07-14-[address] Donna Will MD Work Phone: [facility] Work Phone: Start: 07-14-2024 End: 07-14-2024 Dr. Wilberto Villafuerte MD -Home Health Lab Start: 07-12-2024 End: 07-12-[address] Donna Will MD Work Phone: [facility] Work Phone: Start: 07-12-2024 End: 07-12-2024 GOLF INSTRUCTOR Gris Naik -Pulmonary Services/Neurology Work Phone: Start: 07-12-2024 End: 07-12-2024 ambulatory Gris Naik Facility:[facility] Start: 07-08-2024 End: 07-08-2024 Emergency department patient visit Dr. Donna Will MD Work Phone: [facility] Work Phone: Start: 07-08-2024 End: 07-08-2024 Dr. Donna Will MD Work Phone: -Emergency Department Work Phone: Start: 07-05-2024 End: 07-05-[address] Donna Will MD Work Phone: [facility] Work Phone: Start: 07-05-2024 End: 07-05-2024 Dr. Wilberto Villafuerte MD -Home Health Lab Start: 07-05-2024 End: 07-05-2024 ambulatory Wilberto Villafuerte Facility:[facility] Start: 06-30-2024 End: 06-30-2024 Dr. Donna Will MD -[facility] Work Phone: Start: 06-30-2024 End: 06-30-2024 ambulatory Donna Will Facility:[facility] Start: 06-29-2024 End: 06-29-2024 Dr. Wilberto Villafuerte MD -Medical Out Work Phone: Start: 06-29-2024 End: 06-29-[address] Donna Will MD Work Phone: [facility] Work Phone: Start: 06-28-2024 Dr. Wilberto astorga MD -Home Health Lab Start: 06-25-2024 Dr. Jordan Ortiz MD - [facility] Work Phone: Start: 06-24-2024 Dr. Jordan Ortiz MD - [facility] Work Phone: Start: 06-23-2024 Dr. Jordan Ortiz MD - [facility] Work Phone: Start: 06-23-2024 Dr. Anthony Singleton DO -[facility] Start: 06-22-2024 ambulatory Chicho Carson Fa cility:[facility] Start: 06-22-2024 Dr. Chicho Carson MD -[facility] Start: 06-22-2024 Dr. Jordan Ortiz MD - [facility] Work Phone: Start: 06-22-2024 Dr. Anthony Singleton DO -[facility] Start: 06-21-2024 ambulatory Marco Dang Facility:[facility] Start: 06-21-2024 Dr. Marco Dang MD -[facility] Start: 06-21-2024 Dr. Jordan Ortiz MD - [facility] Work Phone: Start: 06-20-2024 ambulatory Mable Pritchard Facility:[facility] Start: 06-20-2024 End: 06-25-2024 Evaluation and management of inpatient Mable Pritchard Facility:[facility] Start: 06-20-2024 End: 06-25-2024 Dr. Jordan Ortiz MD -[facility] Work Phone: Start: 05-27-2024 Dr. Tobi Zapata MD -[facility] ster Oncology Start: 05-18-2024 End: 05-18-2024 GOLF INSTRUCTOR Gris Naik -[facility] [place] [place] Work Phone: Start: 05-18-2024 End: 05-18-2024 ambulatory Donna Gastonner Facility:[facility] Start: 04-27-2024 End: 04-27-2024 Martha Dodson GOLF INSTRUCTOR-[facility] Work Phone: Start: 04-27-2024 End: 04-27-2024 ambulatory Donna Gastonner Facility:[facility] Start: 04-22-2024 End: 04-22-[address] [facility] Gastroenterology Work Phone: Start: 04-22-2024 End: 04-22-2024 ambulatory Khai Gary Facility:[facility] Start: 04-08-2024 Dr. Huang Lazcano MD -[facility] Work Phone: Start: 04-07-2024 Khai Galeana DO -[facility] Start: 04-07-2024 Dr. Huang Lazcano MD -[facility] Work Phone: Start: 04-07-2024 Dr. Anthony Singleton DO -[facility] Start: 04-06-2024 Khai Galeana [facility] Start: 04-06-2024 Dr. Huang Lazcano MD -[facility] Work Phone: Start: 04-06-2024 Dr. Anthony Singleton DO [facility] Start: 04-05-2024 ambulatory Khai Galeana Facility :[facility] Start: 04-05-2024 End: 04-08-2024 Evaluation and management of inpatient Huang Lazcano Facility:[facility] Start: 04-05-2024 End: 04-08-2024 Dr. Huang Lazcano MD -Intensive Care Unit Work Phone: Start: 03-16-2024 End: 03-16-2024 Eilzabeth HILARIO -[facility] Work Phone: Start: 03-16-2024 End: 03-16-2024 ambulatory Donna Will Facility:[facility] Start: 03-05-2024 End: 03-05-2024 GOLF INSTRUCTOR Gris Naik -[facility] Medicine Work Phone: Start: 03-05-2024 End: 03-05-2024 ambulatory Gris Naik Facility:[facility] Start: 03-05-2024 End: 03-05-2024 ambulatory Gris Naik Facility:[facility] Start: 03-03-2024 End: 03-03-2024 Dr. Donna Will MD -[facility] Work Phone: Start: 03-03-2024 End: 03-03-2024 ambulatory Donna Will Facility:[facility] Start: 02-27-2024 End: 02-27-2024 ambulatory Donna Will Facility:[facility] Start: 01-27-2024 End: 01-27-2024 ambulatory [facility] Facility:[facility] Start: 06-05-2023 Dr. Donna Garcia hner Work Phone: [facility] Work Phone: Start: 06-05-2023 Dr. Donna Garcia hner Work Phone: [facility] Start: 06-05-2023 End: 06-05-[address] Donna Will Work Phone: [facility] Work Phone: Start: 06-05-2023 End: 06-05-2023 Dr. Donna Will Work Phone: [facility] Work Phone: Start: 05-28-2023 End: 05-28-2023 Dr. Donna Will Work Phone: [facility] Work Phone: Start: 05-12-2023 End: 05-12-[address] Donna Will Work Phone: [facility] Work Phone: Start: 05-12-2023 End: 05-12-2023 Dr. Donna Will Work Phone: [facility]-Laboratory Work Phone: Start: 05-09-2023 Dr. Donna Garcia hner Work Phone: [facility] Oncology Start: 05-07-2023 End: 05-07-2023 Dr. Donna Will Work Phone: [facility] Work Phone: Start: 05-07-2023 End: 05-07-[address] Donna Will Work Phone: [facility] Work Phone: Start: 05-07-2023 End: 05-07-2023 Dr. Donna Will Work Phone: [facility]-Laboratory Work Phone: Start: 04-25-2023 End: 04-25-[address] Donna Will Work Phone: [facility] Work Phone: Start: 04-25-2023 End: 04-25-2023 Dr. Donna Will Work Phone: [facility]-Laboratory Work Phone: Start: 04-03-2023 End: 04-24-[address] Donna Will Work Phone: [facility] Work Phone: Start: 04-03-2023 End: 04-24-2023 Dr. Donna Will Work Phone: [facility]-Home Health Lab Start: 03-27-2023 End: 03-27-2023 Dr. Donna Will Work Phone: [facility] Work Phone: Start: 03-21-2023 Dr. Donna Garcia hner Work Phone: [facility] Work Phone: Start: 03-21-2023 ambulatory [facility] Start: 03-21-2023 Patient encounter procedure Adri [facility] Start: 03-20-2023 Dr. Donna Garcia hner Work Phone: [facility] Work Phone: Start: 03-20-2023 Dr. Donna Garcia hner Work Phone: [facility] Start: 03-19-2023 Dr. Donna Garcia hner Work Phone: [facility] Start: 03-19-2023 Dr. Donna Garcia hner Work Phone: [facility] Work Phone: Start: 03-18-2023 Dr. Donna Garcia hner Work Phone: [facility] Work Phone: Start: 03-18-2023 Dr. Donna Garcia hner Work Phone: [facility] Start: 03-18-2023 Dr. Donna Garcia hner Work Phone: [facility] Start: 03-17-2023 Dr. Donna Garcia hner Work Phone: [facility] Start: 03-17-2023 Dr. Donna Garcia hner Work Phone: [facility] Start: 03-17-2023 Dr. Donna Garcia hner Work Phone: [facility] Work Phone: Start: 03-17-2023 Dr. Donna Garcia hner Work Phone: [facility] Start: 03-16-2023 Evaluation and management of inpatient Dr. Donna Will Work Phone: [facility] Work Phone: Start: 03-16-2023 End: 03-21-2023 Dr. Donna Will Work Phone: [facility]-Intensive Care Unit Work Phone: Start: 03-06-2023 Dr. Donna Garcia hner Work Phone: [facility] Work Phone: Start: 03-06-2023 End: 03-06-2023 Dr. Donna Will Work Phone: [facility] Work Phone: Start: 03-05-2023 End: 03-05-2023 Dr. Donna Will Work Phone: [facility] Work Phone: Start: 03-04-2023 Dr. Donna Garcia hner Work Phone: [facility] Work Phone: Start: 03-03-2023 End: 03-06-2023 Evaluation and management of inpatient Dr. Donna Will Work Phone: [facility] Work Phone: Start: 03-03-2023 End: 03-06-2023 Dr. Donna Will Work Phone: [facility]-Progressive Care Unit Work Phone: Start: 03-02-2023 Dr. Donna Garcia hner Work Phone: [facility] Work Phone: Start: 03-01-2023 Dr. Donna Garcia hner Work Phone: [facility] Work Phone: Start: 02-28-2023 Dr. Donna Garcia hner Work Phone: [facility] Work Phone: Start: 02-28-2023 Evaluation and management of inpatient Dr. Donna Will Work Phone: [facility] Work Phone: Start: 02-28-[address] Paula Will Work Phone: [facility] Work Phone: Start: 02-06-[address] Donna Will Work Phone: [facility] Start: 02-06-2023 Dr. Donna Garcia hner Work Phone: [facility] Start: 01-30-[address] Donna Will Work Phone: [facility] Start: 01-28-2023 End: 01-28-[address] [facility] Work Phone: Start: 01-28-2023 End: 01-28-2023 Dr. Donna Will [facility] Work Phone: Start: 01-25-2023 End: 01-25-[address] Donna Will Work Phone: [facility] Work Phone: Start: 01-25-2023 End: 01-25-[address] Donna Will Work Phone: [facility] Work Phone: Start: 01-25-2023 End: 01-25-2023 Dr. Donna Will Work Phone: [facility] Work Phone: Start: 01-21-2023 End: 01-21-[address] Donna Will Work Phone: [facility] Work Phone: Start: 01-21-2023 End: 01-21-2023 Dr. Donna Will Work Phone: [facility] Work Phone: Start: 11-26-2022 End: 11-26-[address] Donna Will Work Phone: [facility] Work Phone: Start: 11-26-2022 End: 11-26-2022 Dr. Donna Will Work Phone: [facility] Work Phone: Start: 11-21-2022 End: 11-21-[address] Donna Will Work Phone: [facility] [place] Work Phone: Start: 11-21-2022 End: 11-21-2022 Dr. Donna Will Work Phone: [facility] [place] Work Phone: Start: 11-17-2022 Non-patient / Non-visit GOLF INSTRUCTOR-C OLEG PIÑA Work Phone: [facility] Work Phone: Start: 11-17-2022 Dr. Donna Garcia hner Work Phone: [facility] Work Phone: Start: 11-16-2022 Non-patient / Non-visit GOLF INSTRUCTOR-C OLEG PIÑA Work Phone: [facility] Work Phone: Start: 11-16-2022 Dr. Donna Garcia hner Work Phone: [facility] Work Phone: Start: 11-15-2022 End: 11-17-2022 Evaluation and management of inpatient GOLF INSTRUCTOR-C OLEG PIÑA [facility] Start: 11-15-2022 Non-patient / Non-visit GOLF INSTRUCTOR-C OLEG PIÑA Work Phone: [facility] Work Phone: Start: 11-15-2022 End: 11-17-2022 Dr. Donna Will Work Phone: [facility] Work Phone: Start: 11-08-2022 Registered Recurring GOLF INSTRUCTOR-C EDWARDD A PIÑA Work Phone: [facility] Start: 10-29-2022 End: 10-29-2022 Patient encounter procedure GOLF INSTRUCTOR-C OLEG PIÑA Work Phone: [facility] Work Phone: Start: 09-30-2022 End: 09-30-2022 Patient encounter procedure GOLF INSTRUCTOR-C OLEG PIÑA Work Phone: [facility] Work Phone: Start: 09-13-2022 End: 09-13-2022 Patient encounter procedure GOLF INSTRUCTOR-C OLEG PIÑA Work Phone: [facility] Work Phone: Start: 09-04-2022 End: 09-04-2022 Patient encounter procedure GOLF INSTRUCTOR-C OLEG PIÑA Work Phone: [facility] Work Phone: Start: 08-29-2022 End: 08-29-2022 Emergency department patient visit GOLF INSTRUCTOR-C OLGE PÑIA Work Phone: [facility] Work Phone: Start: 08-29-2022 End: 08-29-2022 Patient encounter procedure GOLF INSTRUCTOR-C OLEG PIÑA Work Phone: [facility] Work Phone: Start: 08-19-2022 End: 08-19-2022 Patient encounter procedure GOLF INSTRUCTOR-C OLEG PIÑA Work Phone: [facility] Work Phone: Start: 08-14-2022 End: 08-14-2022 Patient encounter procedure GOLF INSTRUCTOR-C OLEG PIÑA Work Phone: [facility] [place] Work Phone: Start: 08-12-2022 End: 08-12-2022 Patient encounter procedure GOLF INSTRUCTOR-C OLEG PIÑA Work Phone: [facility] Work Phone: Start: 08-08-2022 End: 08-08-2022 Patient encounter procedure GOLF INSTRUCTOR-C OLEG PIÑA Work Phone: [facility] Work Phone: Start: 08-08-2022 Registered Recurring GOLF INSTRUCTOR-C WAND A IPÑA Work Phone: [facility] Start: 07-23-2022 End: 07-23-2022 Patient encounter procedure GOLF INSTRUCTOR-C OLEG PIÑA Work Phone: [facility] Work Phone: Start: 07-09-2022 End: 07-09-2022 Patient encounter procedure GOLF INSTRUCTOR-C OLEG PIÑA Work Phone: [facility] Work Phone[facility] Start: 06-19-2022 End: 06-19-2022 ambulatory GOLF INSTRUCTOR-C OLEG PIÑA Work Phone: [facility] Work Phone: Start: 06-19-2022 End: 06-19-2022 Patient encounter procedure GOLF INSTRUCTOR-C OLEG PIÑA Work Phone: [facility] Start: 06-05-2022 End: 06-05-2022 ambulatory GOLF INSTRUCTOR-C OLEG PIÑA Work Phone: [facility] Work Phone: Start: 06-05-2022 End: 06-05-2022 Patient encounter procedure GOLF INSTRUCTOR-C OLEG PIÑA Work Phone: [facility] Start: 05-29-2022 End: 05-29-2022 Patient encounter procedure GOLF INSTRUCTOR-C OLEG PIÑA [facility] Start: 05-16-2022 Non-patient / Non-visit GOLF INSTRUCTOR-C OLEG PIÑA Work Phone: [facility] Start: 05-15-2022 End: 05-15-2022 ambulatory GOLF INSTRUCTOR-C OLEG PIÑA Work Phone: [facility] Work Phone: Start: 05-15-2022 End: 05-15-2022 Patient encounter procedure GOLF INSTRUCTOR-C OLEG PIÑA [facility] Start: 05-14-2022 Non-patient / Non-visit GOLF INSTRUCTOR-C OLEG PIÑA Work Phone: [facility] Start: 05-13-2022 Registered Recurring GOLF INSTRUCTOR-C WAND A PIÑA Work Phone: [facility] Start: 05-13-2022 End: 05-13-2022 ambulatory GOLF INSTRUCTOR-C OLEG PIÑA Work Phone: [facility] Work Phone: Start: 05-13-2022 End: 05-13-2022 Patient encounter procedure GOLF INSTRUCTOR-C OLEG PIÑA Work Phone: [facility] Start: 04-29-2022 End: 04-29-2022 Patient encounter procedure GOLF INSTRUCTOR-C OLEG PIÑA Work Phone: [facility] Start: 03-22-2022 End: 03-22-2022 ambulatory GOLF INSTRUCTOR-C OLEG PIÑA Work Phone: [facility] Work Phone: Start: 03-22-2022 End: 03-22-2022 Patient encounter procedure GOLF INSTRUCTOR-C OLEG PIÑA Work Phone: [facility] Start: 03-22-2022 End: 03-22-2022 GOLF INSTRUCTOR-C OLEG PIÑA Work Phone: [facility] Start: 03-09-2022 End: 03-09-2022 ambulatory GOLF INSTRUCTOR-C OLEG PIÑA Work Phone: [facility] Work Phone: Start: 03-09-2022 End: 03-09-2022 Patient encounter procedure GOLF INSTRUCTOR-C OLEG PIÑA Work Phone: [facility] Specimen Start: 03-09-2022 End: 03-09-2022 GOLF INSTRUCTOR-C OLEG PIÑA [facility] Start: 02-27-2022 End: 02-27-2022 Patient encounter procedure GOLF INSTRUCTOR-C OLEG PIÑA [facility] Start: 02-27-2022 End: 02-27-2022 GOLF INSTRUCTOR-C OLEG PIÑA [facility] Start: 02-16-2022 Non-patient / Non-visit GOLF INSTRUCTOR-C OLEG PIÑA Work Phone: [facility] Start: 02-16-2022 GOLF INSTRUCTOR-C OLEG SIM MONS Work Phone: [facility] Start: 02-16-2022 Non-patient / Non-visit GOLF INSTRUCTOR-C OLEG PIÑA Work Phone: [facility] Start: 02-16-2022 GOLF INSTRUCTOR-C OLEG SIM MONS Work Phone: [facility] Start: 02-15-2022 Non-patient / Non-visit GOLF INSTRUCTOR-C OLEG PIÑA Work Phone: [facility] Start: 02-15-2022 GOLF INSTRUCTOR-C OLEG SIM MONS Work Phone: [facility] Start: 02-15-2022 Non-patient / Non-visit GOLF INSTRUCTOR-C OLEG PIÑA Work Phone: [facility] Start: 02-15-2022 GOLF INSTRUCTOR-C OLEG SIM MONS Work Phone: [facility] Start: 02-14-2022 Non-patient / Non-visit GOLF INSTRUCTOR-C OLEG PIÑA Work Phone: [facility] Start: 02-14-2022 End: 02-16-2022 Evaluation and management of inpatient GOLF INSTRUCTOR-C OLEG PIÑA [facility] Start: 02-14-2022 End: 02-16-2022 GOLF INSTRUCTOR-C OLEG PIÑA [facility] Start: 02-06-2022 End: 02-06-2022 ambulatory GOLF INSTRUCTOR-C OLEG PIÑA Work Phone: [facility] Work Phone: Start: 02-06-2022 End: 02-06-2022 Patient encounter procedure GOLF INSTRUCTOR-C OLEG PIÑA Work Phone: [facility] Spec[facility] Start: 02-06-2022 End: 02-06-2022 GOLF INSTRUCTOR-C OLEG PIÑA Work Phone: [facility] Spec[facility] Start: 02-05-2022 Registered Recurring GOLF INSTRUCTOR-C EDWARDD Binh PIÑA Work Phone: [facility] Start: 02-05-2022 End: 02-05-2022 Patient encounter procedure GOLF INSTRUCTOR-C OLEG PIÑA Work Phone: [facility] Start: 02-05-2022 End: 02-05-2022 GOLF INSTRUCTOR-Gurwinder PIÑA Work Phone: [facility] Start: 01-15-2022 End: 01-15-[address] Donna Will Work Phone: [facility] Work Phone: Start: 01-15-2022 End: 01-15-[address] Donna Will Work Phone: [facility] Spec[facility] Start: 01-15-2022 End: 01-15-2022 GOLF INSTRUCTORChas PIÑA Work Phone: [facility] Spec[facility] Start: 01-14-[address] Donna Will Work Phone: [facility] Start: 01-08-2022 End: 01-08-[address] Donna Will Work Phone: [facility] Start: 01-08-2022 End: 01-08-2022 GOLF INSTRUCTOR-Gurwinder PIÑA Work Phone: [facility] Start: 12-26-[address] Donna Will Work Phone: [facility] Start: 12-26-2021 End: 12-26-[address] Donna Will Work Phone: [facility] Start: 12-26-2021 End: 12-26-2021 GOLF INSTRUCTORChas PIÑA Work Phone: [facility] Start: 12-21-2021 End: 12-21-[address] Donna Will Work Phone: [facility] Work Phone: Start: 12-21-2021 End: 12-21-[address] Donna Will Work Phone: [facility] Start: 12-21-2021 End: 12-21-2021 GOLF INSTRUCTOR-C OLEG ONEALMONS Work Phone: [facility] Start: 12-11-2021 Non-patient / Non-visit Dr. Donna Will Work Phone: [facility] Start: 12-11-2021 GOLF INSTRUCTOR-C OLEG SIM MONS Work Phone: [facility] Start: 12-10-2021 Non-patient / Non-visit Dr. Donna Will Work Phone: [facility] Start: 12-10-2021 GOLF INSTRUCTOR-C OLEG SIM MONS Work Phone: [facility] Start: 12-09-2021 Non-patient / Non-visit Dr. Donna Will Work Phone: [facility] Start: 12-09-2021 GOLF INSTRUCTOR-C OLEG SIM MONS Work Phone: [facility] Start: 12-09-2021 Non-patient / Non-visit Dr. Donna Will Work Phone: [facility] Start: 12-09-2021 GOLF INSTRUCTOR-C OLEG SIM MONS Work Phone: [facility] Start: 12-08-2021 Non-patient / Non-visit Dr. Donna Will Work Phone: [facility] Start: 12-08-2021 End: 12-11-2021 Evaluation and management of inpatient Dr. Donna Will Work Phone: [facility] Start: 12-08-2021 End: 12-11-2021 SORIN PIÑA [facility] Start: 11-16-2021 End: 11-16-[address] Donna Will Work Phone: [facility] Spec[facility] Start: 10-26-2021 Non-patient / Non-visit Dr. Donna Will Work Phone: [facility] Start: 10-25-2021 Non-patient / Non-visit Dr. Donna Will Work Phone: [facility] Start: 10-25-2021 Non-patient / Non-visit Dr. Donna Will Work Phone: [facility] Start: 10-24-2021 Non-patient / Non-visit Dr. Donna Will Work Phone: [facility] Start: 10-24-2021 Non-patient / Non-visit Dr. Donna Will Work Phone: [facility] Start: 10-23-2021 Non-patient / Non-visit Dr. Donna Will Work Phone: [facility] Start: 10-23-2021 End: 10-26-2021 Evaluation and management of inpatient Dr. Donna Will [facility] Start: 10-23-2021 End: 10-23-[address] Donna Will [facility] Start: 10-16-2021 End: 10-16-[address] Donna Will Work Phone: [facility] Start: 10-09-2021 End: 10-09-[address] Donna Will Work Phone: [facility] Start: 10-02-2021 Non-patient / Non-visit Dr. Donna Will Work Phone: [facility] Start: 10-01-2021 End: 10-02-2021 Evaluation and management of inpatient Dr. Donna Will [facility] Start: 09-04-2021 Non-patient / Non-visit Dr. Donna Will Work Phone: [facility] Start: 09-04-2021 End: 09-04-[address] Donna Will Work Phone: [facility] Start: 09-03-2021 End: 09-03-[address] Donna Will Work Phone: [facility] Start: 08-07-2021 Non-patient / Non-visit Dr. Donna Will Work Phone: [facility] Start: 08-06-2021 End: 08-07-2021 Evaluation and management of inpatient Dr. Donna Will [facility] Start: 08-03-2021 End: 08-03-[address] Donna Will Work Phone: [facility] Spec[facility] Start: 08-01-2021 End: 08-01-[address] Donna Will Work Phone: [facility] Start: 07-26-2021 End: 07-26-[address] Donna Will Work Phone: [facility] Start: 07-24-2021 End: 07-24-[address] Donna Will [facility] Start: 06-25-2021 End: 06-25-[address] Donna Will [facility] Start: 06-19-2021 Non-patient / Non-visit Dr. Donna Will Work Phone: [facility] Start: 06-19-2021 Dr. Donna de souza Work Phone: [facility] Start: 06-15-2021 End: 06-15-[address] Donna Will [facility] Start: 06-15-2021 End: 06-15-2021 Dr. Donna Will [facility] Start: 05-29-2021 End: 05-29-[address] Donna Will Work Phone: [facility] Start: 05-29-2021 End: 05-29-2021 Dr. Donna Will Work Phone: [facility] Start: 05-29-2021 End: 05-29-[address] Donna Will Work Phone: [facility] Start: 05-29-2021 End: 05-29-2021 Dr. Donna Will Work Phone: [facility] Start: 05-04-2021 End: 05-18-2021 Evaluation and management of inpatient Dr. Donna Will [facility] Start: 05-04-2021 End: 05-18-2021 Dr. Donna Will [facility] Start: 05-04-2021 Non-patient / Non-visit Dr. Donna Will Work Phone: [facility] Start: 05-04-2021 Dr. Donna Garcia hner Work Phone: [facility] Start: 05-04-2021 Non-patient / Non-visit Dr. Donna Will Work Phone: [facility] Start: 05-04-2021 Dr. Donna Garcia hner Work Phone: [facility] Start: 05-03-2021 Non-patient / Non-visit Dr. Donna Will Work Phone: [facility] Start: 05-03-2021 Dr. Donan Garcia hner Work Phone: [facility] Start: 05-02-2021 Non-patient / Non-visit Dr. Donna Will Work Phone: [facility] Start: 05-02-2021 Dr. Donna Garcia hner Work Phone: [facility] Start: 05-02-2021 Non-patient / Non-visit Dr. Donna Will Work Phone: [facility] Start: 05-02-2021 Dr. Donna Garcia hner Work Phone: [facility] Start: 05-02-2021 Non-patient / Non-visit Dr. Donna Will Work Phone: [facility] Start: 05-02-2021 Dr. Donna Garcia hner Work Phone: [facility] Start: 05-01-2021 Non-patient / Non-visit Dr. Donna Will Work Phone: [facility] Start: 05-01-2021 Dr. Donna Garcia hner Work Phone: [facility] Start: 05-01-2021 Non-patient / Non-visit Dr. Donna Will Work Phone: [facility] Start: 05-01-2021 Dr. Donna Garcia hner Work Phone: [facility] Start: 05-01-2021 Non-patient / Non-visit Dr. Donna Will Work Phone: [facility] Start: 05-01-2021 Dr. Donna Garcia hner Work Phone: [facility] Start: 05-01-2021 Non-patient / Non-visit Dr. Donna Will Work Phone: [facility] Start: 05-01-2021 Dr. Donna Garcia hner Work Phone: [facility] Start: 04-30-2021 Non-patient / Non-visit Dr. Donna Will Work Phone: [facility] Start: 04-30-2021 Dr. Donna Garcia hner Work Phone: [facility] Start: 04-29-2021 Non-patient / Non-visit Dr. Donna Will Work Phone: [facility] Start: 04-29-2021 End: 05-04-2021 Evaluation and management of inpatient Dr. Donna Will [facility] Start: 04-29-2021 End: 05-04-2021 Dr. Donna Will [facility] Start: 04-26-2021 End: 04-29-2021 Evaluation and management of inpatient Dr. Donna Will [facility] Start: 04-26-2021 Non-patient / Non-visit Dr. Donna Will Work Phone: [facility] Start: 04-26-2021 Non-patient / Non-visit Dr. Donna Will Work Phone: [facility] Start: 04-26-2021 End: 04-30-2021 Dr. Donna Will [facility] Start: 04-25-2021 Non-patient / Non-visit Dr. Donna Will Work Phone: [facility] Start: 04-25-2021 Dr. Donna Garcia hner Work Phone: [facility] Start: 04-25-2021 Non-patient / Non-visit Dr. Donna Will Work Phone: [facility] Start: 04-25-2021 Dr. Donna Garcia hner Work Phone: [facility] Start: 04-24-2021 Non-patient / Non-visit Dr. Donna Will Work Phone: [facility] Start: 04-24-2021 Dr. Donna Garcia hner Work Phone: [facility] Start: 04-24-2021 Non-patient / Non-visit Dr. Donna Will Work Phone: [facility] Start: 04-24-2021 Dr. Donna Garcia hner Work Phone: [facility] Start: 04-23-2021 Non-patient / Non-visit Dr. Donna Will Work Phone: [facility] Start: 04-23-2021 Dr. Donna Garcia hner Work Phone: [facility] Start: 04-23-2021 Non-patient / Non-visit Dr. Donna Will Work Phone: [facility] Start: 04-23-2021 Dr. Donna Garcia hner Work Phone: [facility] Start: 04-22-2021 End: 04-26-2021 Evaluation and management of inpatient Dr. Donna Will Work Phone: [facility] 3 Start: 04-22-2021 End: 04-26-2021 Dr. Donna Will Work Phone: [facility] 3 Start: 04-21-2021 Non-patient / Non-visit Dr. Donna Will Work Phone: [facility] Start: 04-21-2021 Dr. Donna francor Work Phone: [facility] Start: 04-19-2021 End: 04-19-[address] Donna Will Work Phone: [facility] Start: 04-19-2021 End: 04-19-2021 Dr. Donna Will Work Phone: [facility] Start: 04-11-2021 Non-patient / Non-visit Dr. Donna Will Work Phone: [facility] Start: 04-11-2021 Dr. Donna Garcia hner Work Phone: [facility] Start: 04-10-2021 Non-patient / Non-visit Dr. Donna Will Work Phone: [facility] Start: 04-10-2021 Dr. Donna Garcia hner Work Phone: [facility] Start: 04-09-2021 Non-patient / Non-visit Dr. Donna Will Work Phone: [facility] Start: 04-09-2021 Dr. Donna Garcia hner Work Phone: [facility] Start: 04-09-2021 Non-patient / Non-visit Dr. Donna Will Work Phone: [facility] Start: 04-09-2021 Dr. Donna Garcia hner Work Phone: [facility] Start: 04-08-2021 End: 04-11-2021 Evaluation and management of inpatient Dr. Donna Will Work Phone: [facility] Start: 04-08-2021 End: 04-11-2021 Dr. Donna Will [facility] Start: 04-05-2021 End: 04-05-2021 Dr. Donna Will Work Phone: [facility] Start: 04-04-2021 End: 04-04-2021 Dr. Donna Will Work Phone: [facility] Start: 04-04-2021 Dr. Donna Garcia hner Work Phone: [facility] Start: 03-28-2021 End: 03-28-2021 Dr. Donna Will Work Phone: [facility] Start: 03-25-2021 Dr. Donna Garcia hner Work Phone: [facility] Start: 03-23-2021 Dr. Donna Garcia hner Work Phone: [facility] Start: 03-22-2021 End: 03-25-2021 Dr. Donna Will Work Phone: [facility] Start: 03-14-2021 End: 03-14-2021 Dr. Donna Will Work Phone: [facility] Start: 02-05-2021 Dr. Donna francor Work Phone: [facility] Procedures Date Procedure Procedure Detail Performing Clinician Start: 12-06-[address] Donna Will MD Work Phone: Start: 12-06-[address] Toyin Will MD Work Phone: Start: 12-06-2024 Mean corpuscular hemoglobin concentration determination Dr. Donna Will MD Work Phone: Start: 12-06-[address] Donna Will MD Work Phone: Start: 12-06-2024 Nucleated red blood cell count procedure Dr. Donna Will MD Work Phone: Start: 12-06-2024 Platelet mean volume determination Dr. Andre Will MD Work Phone: Start: 12-06-2024 Serum inorganic phosphate measurement Dr. Donna Will MD Work Phone: Start: 12-06-2024 Total iron binding capacity measurement Dr. Donna Will MD Work Phone: Start: 11-25-2024 Measurement of occult blood in stool specimen using immunoassay Dr. Donna Will MD Work Phone: Start: 09-24-2024 Vitamin D, 25-hydroxy measurement Dr. Toyin Will MD Work Phone: Start: 09-13-2024 Blood count smear mcrscp w/mnl difrntl wbc count Dr. Donna Will MD Work Phone: Start: 09-13-[address] Donna Will MD Work Phone: Start: 09-13-2024 Mean corpuscular hemoglobin concentration determination Dr. Donna Will MD Work Phone: Start: 09-13-[address] Donna mckeon MD Work Phone: Start: 09-13-2024 Nucleated red blood cell count procedure Dr. Donna Will MD Work Phone: Start: 09-13-2024 Platelet mean volume determination Dr. Andre Will MD Work Phone: Start: 09-13-2024 Total iron binding capacity measurement Dr. Donna Will MD Work Phone: Start: 08-25-2024 Plain chest X-ray Dr. Donna Will MD Work Phone: Start: 08-25-2024 Blood count smear mcrscp w/mnl difrntl wbc count Dr. Donna Will MD Work Phone: Start: 08-25-[address] Donna Will MD Work Phone: Start: 08-25-2024 Mean corpuscular hemoglobin concentration determination Dr. Donna Will MD Work Phone: Start: 08-25-[address] Donna Will MD Work Phone: Start: 08-25-2024 Nucleated red blood cell count procedure Dr. Donna Will MD Work Phone: Start: 08-25-2024 Platelet mean volume determination Dr. Andre Will MD Work Phone: Start: 08-24-[address] Donna vasques MD Work Phone: Start: 08-24-[address] Donna Will MD Work Phone: Start: 08-24-2024 Microbial culture, body fluid Dr. Donna Will MD Work Phone: Start: 08-24-2024 Blood count leukocyte wbc automated Dr. Donna Will MD Work Phone: Start: 08-24-[address] Donna oleary MD Work Phone: Start: 08-24-[address] Toyin Will MD Work Phone: Start: 08-24-2024 Ultrasonic guidance for thoracentesis Dr. Donna Will MD Work Phone: Start: 08-24-[address] Donna de souza MD Work Phone: Start: 08-24-[address] Toyin Will MD Work Phone: Start: 08-22-[address] Donna oleary MD Work Phone: Start: 08-22-2024 Total cholesterol:HDL ratio measurement Dr. Donna Will MD Work Phone: Start: 08-22-[address] Donna de souza MD Work Phone: Start: 08-21-[address] Donna crawford MD Work Phone: Start: 08-21-[address] Donna Will MD Work Phone: Start: 08-21-[address] Donna Will MD Work Phone: Start: 08-21-[address] Donna Will MD Work Phone: Start: 08-21-[address] Donna Will MD Work Phone: Start: 08-21-2024 Dr. Donna Will MD Work Phone: Start: 08-21-2024 Carbon dioxide measurement, partial pressure Dr. Donna Will MD Work Phone: Start: 08-21-2024 Gases blood o2 saturation only direct yocasta Dr. Donna Will MD Work Phone: Start: 08-21-2024 Measurement of partial pressure of oxygen in blood Dr. Donna Will MD Work Phone: Start: 08-21-[address] Donna Will MD Work Phone: Start: 08-21-[address] Donna Will MD Work Phone: Start: 08-21-2024 Urine microscopy: red cells Dr. Donna vasques MD Work Phone: Start: 08-21-2024 Urnls dip stick/tablet reagent auto microscopy Dr. Donna Will MD Work Phone: Start: 08-21-2024 X-ray of chest, PA and lateral views Dr. Donna Will MD Work Phone: Start: 08-21-2024 Blood count smear mcrscp w/mnl difrntl wbc count Dr. Donna Will MD Work Phone: Start: 08-21-2024 Calculation of international normalized ratio Dr. Donna Will MD Work Phone: Start: 08-21-[address] Donna Will MD Work Phone: Start: 08-21-[address] Donna brown MD Work Phone: Start: 08-21-2024 Mean corpuscular hemoglobin concentration determination Dr. Donna Will MD Work Phone: Start: 08-21-2024 Nucleated red blood cell count procedure Dr. Donna Will MD Work Phone: Start: 08-21-2024 Platelet mean volume determination Dr. Andre Will MD Work Phone: Start: 07-23-2024 Measurement of occult blood in [...] 06-28-2024 Platelet mean volume determination Dr. Andre Wlil MD Work Phone: Start: 06-25-2024 Blood count [...] Phone: Start: 04-05-2024 Albumin/Globulin ratio Dr. Donna oleary MD Work Phone: Start: 04-05-[address] Donna iWll MD Work Phone: Start: 04-05-2024 Calculation of [...] Work Phone: Start: 11-15-2022 Plain chest X-ray [employer] Work Phone: Start: 07-29-2022 Measurement of occult blood in stool specimen using immunoassay [employer] Work Phone: Start: 07-09-2022 Computed tomography of abdomen and pelvis with contrast [employer] Work Phone: Start: 06-05-2022 Videoswallow [employer] Work Phone: Start: 05-03-2022 Measurement of occult blood in stool specimen using immunoassay [employer] Work Phone: Start: 03-22-2022 Videoswallow [employer] Work Phone: Start: 02-15-2022 Plain chest X-ray [employer] Work Phone: Start: 02-14-2022 CT angiography of chest with contrast [employer] Work Phone: Start: 02-14-2022 Plain chest X-ray [employer] Work Phone: Start: 02-14-2022 CT of head without contrast [employer] Doyle [facility]MMONS Work Phone: Start: 12-10-[address] [...] Start: 08-06-2021 Respiratory Panel (PCR) Dr. Donna brown Work Phone: Start: 08-06-2021 Streptococcus pneumoniae Antigen [...] blood in stool specimen using immunoassay Dr. oDnna Will Work Phone: Start: 05-01-2021 Streptococcus pneumoniae [...] Phone: Bacteria identified in Blood by Culture [employer] Work Phone: Bacteria identified in Urine by Culture [employer] Work Phone: H/O: surgery Dr. Donna pollock Work Phone: Investigation of tra nsfusion reaction Dr. Donna Will Work Phone: Investigation of tra nsfusion reaction [employer] Work Phone: Legionella pneumophi la antigen assay Dr. Donna Will Work Phone: Legionella pneumophi la antigen assay [employer] Work Phone: Measurement of occul t blood in stool specimen using immunoassay Dr. Donna Will Work Phone: Measurement of occul t blood in stool specimen using immunoassay [employer] Work Phone: Respiratory microbial culture Dr. Donna Will Work Phone: Respiratory microbial culture [employer] Work Phone: Respiratory Panel (PCR) Dr. Donna Will Work Phone: Respiratory Panel (PCR) [employer] Work Phone: SARS-CoV-2 & FLU Antigen (Rapid) Dr. Donna Will Work Phone: Streptococcus pneumoniae Antigen (M Dr. Donna Will Work Phone: Urine culture [employer] [facility] Work Phone: Urine culture [employer] Work Phone: [employer] [employer] Work Phone: [employer] Work Phone: [employer] Work Phone: [employer] [employer] Work Phone: [employer] [employer] Work Phone: [employer] Work Phone: Plan of Treatment Date Care Activity Detail Author Start: 02-28-2025 Lactate dehydrogenase measurement [facility] Start: 02-28-2025 Serum inorganic phosphate measurement [facility] Start: 10-14-2024 Polysomnography [facility] Start: 09-24-2024 Basic metabolic 2008 panel with ionized calcium - Serum or Plasma [facility] Start: 09-24-2024 Magnesium measurement [facility] Start: 09-24-2024 Natriuretic peptide.B prohormone N-Terminal [Mass/volume] in Serum or Plasma [facility] Start: 09-24-2024 Vitamin B12 measurement [facility] Start: 09-24-2024 Vitamin D, 25-hydroxy measurement [facility] Start: 09-13-2024 Haptoglobin [Mass/volume] in Serum or Plasma [facility] Start: 09-13-2024 [facility] Start: 08-25-2024 Patient discharge [facility] Start: 08-25-2024 Referral to service [facility] Start: 08-24-2024 [facility] Start: 08-24-2024 Palliative care [facility] Start: 08-24-2024 End: 08-24-2024 Microbial culture, body fluid [facility] Start: 08-24-2024 Care planning and problem solving actions [facility] Start: 08-24-2024 Vital signs measurements [facility] Start: 08-24-2024 Oxygen therapy [facility] Start: 08-24-2024 Inhalation therapy procedure [facility] Start: 08-23-2024 End: 08-24-2024 [facility] Start: 08-23-2024 Application of intermittent pneumatic compression device [facility] Start: 08-23-2024 Consultation [facility] Start: 08-23-2024 Vital signs measurements [facility] Start: 08-22-2024 Following clinical pathway protocol [facility] Start: 08-22-2024 [facility] Start: 08-21-2024 Glucose measurement, body fluid [facility] Start: 08-21-2024 Following clinical pathway protocol [facility] Start: 08-21-2024 Blood culture [facility] Start: 08-21-2024 Application of elastic bandage [facility] Start: 08-21-2024 Assessment of risk of venous thromboembolism [facility] Start: 08-21-2024 Care regimes management [facility] Start: 08-21-2024 Continuous pulse oximetry [facility] Start: 08-21-2024 Elevation of affected extremity [facility] Start: 08-21-2024 Insertion of catheter into peripheral vein [facility] Start: 08-21-2024 Measuring intake and output [facility] Start: 08-21-2024 Notification of physician [facility] Start: 08-21-2024 Patient education [facility] Start: 08-21-2024 Providing care according to standard [facility] Start: 08-21-2024 Referral for physical therapy [facility] Start: 08-21-2024 Referral to occupational therapist [facility] Start: 08-21-2024 Referral to service [facility] Start: 08-21-2024 Vital signs measurements [facility] Start: 08-21-2024 End: 08-21-2024 [facility] Start: 08-21-2024 Verification routine [facility] Start: 08-21-2024 Consultation [facility] Start: 08-21-2024 Methicillin resistant Staphylococcus aureus (MRSA) DNA [Presence] in Nose by JUSTIN with probe detection [facility] Start: 08-21-2024 End: 08-21-2024 [facility] Start: 08-21-2024 Admission procedure [facility] Start: 08-21-2024 Hospital admission, emergency, from emergency room, medical nature [facility] Start: 08-21-2024 Continuous pulse oximetry [facility] Start: 08-21-2024 Dual pressure spontaneous ventilation support [facility] Start: 08-21-2024 End: 08-21-2024 [facility] Start: 07-20-2024 [facility] Start: 07-20-2024 Patient referral [facility] Work Phone: Start: 07-08-2024 [facility] Start: 07-08-2024 Blood culture [facility] Start: 07-08-2024 End: 07-08-2024 [facility] Start: 07-01-2024 Measurement of respiratory function [facility] Start: 06-25-2024 Patient discharge [facility] Start: 06-24-2024 Referral to service [facility] Start: 06-22-2024 Consultation [facility] Start: 06-21-2024 Oxygen therapy [facility] Start: 06-21-2024 [facility] Start: 06-20-2024 Dual pressure spontaneous ventilation support [facility] Start: 06-20-2024 Application of intermittent pneumatic compression device [facility] Start: 06-20-2024 Following clinical pathway protocol [facility] Start: 06-20-2024 Continuous pulse oximetry [facility] Start: 06-20-2024 Assessment of risk of venous thromboembolism [facility] Start: 06-20-2024 Care regimes management [facility] Start: 06-20-2024 Catheterization of vein [facility] Start: 06-20-2024 Elevation of head of bed [facility] Start: 06-20-2024 Inhalation therapy procedure [facility] Start: 06-20-2024 Insertion of catheter into peripheral vein [facility] Start: 06-20-2024 Measuring intake and output [facility] Start: 06-20-2024 Notification of physician [facility] Start: 06-20-2024 Patient education [facility] Start: 06-20-2024 Providing care according to standard [facility] Start: 06-20-2024 Referral to occupational therapist [facility] Start: 06-20-2024 Referral to service [facility] Start: 06-20-2024 Tobacco use cessation education [facility] Start: 06-20-2024 Vital signs measurements [facility] Start: 06-20-2024 End: 06-20-2024 [facility] Start: 06-20-2024 Admission procedure [facility] Start: 04-08-2024 Patient discharge [facility] Start: 04-07-2024 Oxygen therapy [facility] Start: 04-06-2024 End: 04-07-2024 [facility] Start: 04-06-2024 Referral to gastroenterology service [facility] Start: 04-06-2024 Administration of blood product [facility] Start: 04-06-2024 Care planning and problem solving actions [facility] Start: 04-06-2024 Inhalation therapy procedure [facility] Start: 04-05-2024 Following clinical pathway protocol [facility] Start: 04-05-2024 Transfusion of blood product [facility] Start: 04-05-2024 Application of intermittent pneumatic compression device [facility] Start: 04-05-2024 Cardiac monitoring [facility] Start: 04-05-2024 Care regimes management [facility] Start: 04-05-2024 Catheterization of vein [facility] Start: 04-05-2024 Consultation [facility] Start: 04-05-2024 Continuous pulse oximetry [facility] Start: 04-05-2024 Notification of physician [facility] Start: 04-05-2024 Vital signs measurements [facility] Start: 04-05-2024 End: 04-05-2024 [facility] Start: 04-05-2024 Admission procedure [facility] Start: 06-05-2023 Diagnostic bone marrow biopsies & aspirations [facility] Start: 06-05-2023 Procedure [facility] Start: 06-05-2023 Following clinical pathway protocol [facility] Start: 06-05-2023 Catheterization of vein [facility] Start: 06-05-2023 Oxygen therapy [facility] Start: 06-05-2023 Patient discharge [facility] Start: 06-05-2023 Vital signs measurements [facility] Start: 05-09-2023 Administration of blood product [facility] Start: 05-09-2023 [facility] Start: 03-21-2023 Referral to service [facility] Start: 03-21-2023 Patient discharge [facility] Start: 03-19-2023 Care planning and problem solving actions [facility] Start: 03-17-2023 [facility] Start: 03-17-2023 [facility] Start: 03-17-2023 Vital signs measurements [facility] Start: 03-17-2023 Methicillin resistant Staphylococcus aureus screening test [facility] Start: 03-17-2023 End: 03-18-2023 [facility] Start: 03-16-2023 [facility] Start: 03-16-2023 Speech therapy assessment [facility] Start: 03-16-2023 Following clinical pathway protocol [facility] Start: 03-16-2023 Lab findings surveillance [facility] Start: 03-16-2023 [facility] Start: 03-16-2023 Application of intermittent pneumatic compression device [facility] Start: 03-16-2023 Hospital admission, emergency, from emergency room, medical nature [facility] Start: 03-16-2023 Following clinical pathway protocol [facility] Start: 03-16-2023 Assessment of risk of venous thromboembolism [facility] Start: 03-16-2023 Care regimes management [facility] Start: 03-16-2023 Catheterization of vein [facility] Start: 03-16-2023 Consultation [facility] Start: 03-16-2023 Continuous pulse oximetry [facility] Start: 03-16-2023 Documentation procedure [facility] Start: 03-16-2023 Incentive spirometry [facility] Start: 03-16-2023 Inhalation therapy procedure [facility] Start: 03-16-2023 Insertion of catheter into peripheral vein [facility] Start: 03-16-2023 Measuring intake and output [facility] Start: 03-16-2023 Microbial culture, body fluid [facility] Start: 03-16-2023 Microscopic observation [Identifier] in Body fluid by Cyto stain [facility] Start: 03-16-2023 Notification of physician [facility] Start: 03-16-2023 Oxygen therapy [facility] Start: 03-16-2023 Patient referral to dietitian [facility] Start: 03-16-2023 Providing care according to standard [facility] Start: 03-16-2023 Referral to gastroenterology service [facility] Start: 03-16-2023 Referral to occupational therapist [facility] Start: 03-16-2023 Referral to service [facility] Start: 03-16-2023 Removal of urinary catheter [facility] Start: 03-16-2023 Respiratory therapy [facility] Start: 03-16-2023 Vital signs measurements [facility] Start: 03-16-2023 End: 03-16-2023 [facility] Start: 03-16-2023 Ultrasonic guidance for thoracentesis [facility] Start: 03-16-2023 Cell count and Differential panel - Body fluid [facility] Start: 03-16-2023 Glucose measurement, body fluid [facility] Start: 03-16-2023 Verification routine [facility] Start: 03-16-2023 Admission procedure [facility] Start: 03-16-2023 End: 03-16-2023 Administration of blood product [facility] Start: 03-16-2023 End: 03-16-2023 Blood culture [facility] Start: 03-16-2023 End: 03-17-2023 [facility] Start: 03-16-2023 Leukocyte reduced red blood cells [facility] Start: 03-06-2023 Patient discharge [facility] Start: 03-04-2023 Care regimes management [facility] Start: 03-04-2023 Notification of physician [facility] Start: 03-04-2023 [facility] Start: 03-03-2023 Admission procedure [facility] Start: 03-01-2023 Referral to service [facility] Start: 03-01-2023 Administration of blood product [facility] Start: 02-28-2023 Application of intermittent pneumatic compression device [facility] Start: 02-28-2023 Administration of blood product [facility] Start: 02-28-2023 Assessment of risk of venous thromboembolism [facility] Start: 02-28-2023 Care regimes management [facility] Start: 02-28-2023 Insertion of catheter into peripheral vein [facility] Start: 02-28-2023 Measuring intake and output [facility] Start: 02-28-2023 Notification of physician [facility] Start: 02-28-2023 Oxygen therapy [facility] Start: 02-28-2023 Physiotherapy of chest [facility] Start: 02-28-2023 Providing care according to standard [facility] Start: 02-28-2023 Provision of activity privileges [facility] Start: 02-28-2023 Referral to occupational therapist [facility] Start: 02-28-2023 Referral to service [facility] Start: 02-28-2023 Following clinical pathway protocol [facility] Start: 02-28-2023 Verification routine [facility] Start: 02-28-2023 Admission procedure [facility] Start: 02-28-2023 Hospital admission, emergency, from emergency room, medical nature [facility] Start: 02-28-2023 Leukocyte reduced red blood cells [facility] Start: 02-28-2023 End: 02-28-2023 [facility] Start: 02-28-2023 End: 02-28-2023 Administration of blood product [facility] Start: 02-28-2023 [facility] Start: 02-28-2023 Inhalation therapy procedure [facility] Start: 11-18-2022 Blood chemistry [facility] Start: 11-17-2022 Patient discharge [facility] Start: 11-17-2022 End: 11-17-2022 [facility] Start: 11-17-2022 Application of elastic bandage [facility] Start: 11-16-2022 End: 11-16-2022 Administration of blood product [facility] Start: 11-16-2022 Referral to service [facility] Start: 11-16-2022 Blood chemistry [facility] Start: 11-16-2022 Complete blood count [facility] Start: 11-15-2022 Care regimes management [facility] Start: 11-15-2022 Notification of physician [facility] Start: 11-15-2022 Following clinical pathway protocol [facility] Start: 11-15-2022 Ambulation without limitation [facility] Start: 11-15-2022 Assessment of risk of venous thromboembolism [facility] Start: 11-15-2022 Insertion of catheter into peripheral vein [facility] Start: 11-15-2022 Measuring intake and output [facility] Start: 11-15-2022 Oxygen therapy [facility] Start: 11-15-2022 Providing care according to standard [facility] Start: 11-15-2022 Referral to occupational therapist [facility] Start: 11-15-2022 Referral to service [facility] Start: 11-15-2022 End: 11-15-2022 [facility] Start: 11-15-2022 Troponin I measurement [facility] Start: 11-15-2022 End: 11-15-2022 Verification routine [facility] Start: 11-15-2022 Admission procedure [facility] Start: 10-01-2022 Administration of blood product [facility] Start: 10-01-2022 [facility] Start: 09-06-2022 Administration of blood product [facility] Start: 09-06-2022 [facility] Start: 04-29-2022 Patient referral [facility] Work Phone: Start: 02-16-2022 Patient discharge [facility] Start: 02-15-2022 Referral to service [facility] Start: 02-15-2022 Consultation [facility] Start: 02-15-2022 Methicillin resistant Staphylococcus aureus screening test [facility] Start: 02-15-2022 Continuous positive airway pressure ventilation treatment [facility] Start: 02-14-2022 Following clinical pathway protocol [facility] Start: 02-14-2022 Assessment of risk of venous thromboembolism [facility] Start: 02-14-2022 Elevation of head of bed [facility] Start: 02-14-2022 Incentive spirometry [facility] Start: 02-14-2022 Inhalation therapy procedure [facility] Start: 02-14-2022 Insertion of catheter into peripheral vein [facility] Start: 02-14-2022 Measuring intake and output [facility] Start: 02-14-2022 Oxygen therapy [facility] Start: 02-14-2022 Patient education [facility] Start: 02-14-2022 Providing care according to standard [facility] Start: 02-14-2022 Provision of activity privileges [facility] Start: 02-14-2022 Referral to occupational therapist [facility] Start: 02-14-2022 Referral to service [facility] Start: 02-14-2022 [facility] Start: 02-14-2022 Verification routine [facility] Work Phone: Start: 02-14-2022 Legionella pneumophila Ag [Presence] in Urine [facility] Work Phone: Start: 02-14-2022 Streptococcus pneumoniae antigen assay [facility] Work Phone: Start: 02-14-2022 [facility] Start: 02-14-2022 Admission procedure [facility] Start: 02-14-2022 [facility] Work Phone: Start: 02-14-2022 End: 02-14-2022 Blood culture [facility] Work Phone: Start: 02-14-2022 End: 02-14-2022 [facility] Work Phone: Start: 12-11-2021 Referral to service [facility] Start: 12-11-2021 Patient discharge [facility] Start: 12-10-2021 Catheterization of vein [facility] Start: 12-10-2021 Administration of blood product [facility] Start: 12-10-2021 [facility] Start: 12-09-2021 Respiratory secretion precautions [facility] Start: 12-09-2021 Referral to gastroenterology service [facility] Start: 12-08-2021 Application of intermittent pneumatic compression device [facility] Start: 12-08-2021 Assessment of risk of venous thromboembolism [facility] Start: 12-08-2021 Care regimes management [facility] Start: 12-08-2021 Elevation of head of bed [facility] Start: 12-08-2021 Incentive spirometry [facility] Start: 12-08-2021 Inhalation therapy procedure [facility] Start: 12-08-2021 Insertion of catheter into peripheral vein [facility] Start: 12-08-2021 Introduction of urinary catheter [facility] Start: 12-08-2021 Measuring intake and output [facility] Start: 12-08-2021 Oxygen therapy [facility] Start: 12-08-2021 Patient education [facility] Start: 12-08-2021 Providing care according to standard [facility] Start: 12-08-2021 Provision of activity privileges [facility] Start: 12-08-2021 Referral to service [facility] Start: 12-08-2021 [facility] Start: 12-08-2021 Following clinical pathway protocol [facility] Start: 12-08-2021 Streptococcus pneumoniae antigen assay [facility] Work Phone: Start: 12-08-2021 [facility] Start: 12-08-2021 Verification routine [facility] Work Phone: Start: 12-08-2021 Admission procedure [facility] Start: 12-08-2021 Blood culture [facility] Work Phone: Start: 12-08-2021 [facility] Work Phone: Start: 12-08-2021 Patient referral to dietitian [facility] Start: 10-26-2021 Patient discharge [facility] Work Phone: Start: 10-25-2021 Incentive spirometry [facility] Work Phone: Start: 10-24-2021 Catheterization of vein [facility] Work Phone: Start: 10-24-2021 Transfusion of blood product [facility] Work Phone: Start: 10-24-2021 Referral to service [facility] Work Phone: Start: 10-24-2021 [facility] Work Phone: Start: 10-24-2021 Administration of blood product [facility] Work Phone: Start: 10-24-2021 Leukocyte reduced red blood cells [facility] Work Phone: Start: 10-24-2021 End: 10-25-2021 [facility] Work Phone: Start: 10-24-2021 Referral to gastroenterology service [facility] Work Phone: Start: 10-24-2021 Administration of blood product [facility] Work Phone: Start: 10-23-2021 End: 10-24-2021 [facility] Work Phone: Start: 10-23-2021 Respiratory secretion precautions [facility] Work Phone: Start: 10-23-2021 Oxygen therapy [facility] Work Phone: Start: 10-23-2021 Care regimes management [facility] Work Phone: Start: 10-23-2021 Notification of physician [facility] Work Phone: Start: 10-23-2021 Ambulation without limitation [facility] Work Phone: Start: 10-23-2021 Assessment of risk of venous thromboembolism [facility] Work Phone: Start: 10-23-2021 Catheterization of vein [facility] Work Phone: Start: 10-23-2021 Insertion of catheter into peripheral vein [facility] Work Phone: Start: 10-23-2021 Providing care according to standard [facility] Work Phone: Start: 10-23-2021 Following clinical pathway protocol [facility] Work Phone: Start: 10-23-2021 Admission procedure [facility] Work Phone: Start: 10-23-2021 End: 10-23-2021 Blood culture [facility] Work Phone: Start: 10-23-2021 Inhalation therapy procedure [facility] Work Phone: Start: 10-09-2021 Patient referral [facility] Work Phone: Start: 10-02-2021 Patient discharge [facility] Work Phone: Start: 10-02-2021 Referral to service [facility] Work Phone: Start: 10-02-2021 [facility] Work Phone: Start: 10-02-2021 Application of intermittent pneumatic compression device [facility] Work Phone: Start: 10-01-2021 Following clinical pathway protocol [facility] Work Phone: Start: 10-01-2021 Aspiration precautions [facility] Work Phone: Start: 10-01-2021 Assessment of risk of venous thromboembolism [facility] Work Phone: Start: 10-01-2021 Bacteria identified in Sputum by Culture [facility] Work Phone: Start: 10-01-2021 Bacterial nucleic acid assay [facility] Work Phone: Start: 10-01-2021 Care regimes management [facility] Work Phone: Start: 10-01-2021 Elevation of head of bed [facility] Work Phone: Start: 10-01-2021 Fall prevention [facility] Work Phone: Start: 10-01-2021 Incentive spirometry [facility] Work Phone: Start: 10-01-2021 Inhalation therapy procedure [facility] Work Phone: Start: 10-01-2021 Insertion of catheter into peripheral vein [facility] Work Phone: Start: 10-01-2021 Introduction of urinary catheter [facility] Work Phone: Start: 10-01-2021 Measuring intake and output [facility] Work Phone: Start: 10-01-2021 Methicillin resistant Staphylococcus aureus screening test [facility] Work Phone: Start: 10-01-2021 Oxygen therapy [facility] Work Phone: Start: 10-01-2021 Patient education [facility] Work Phone: Start: 10-01-2021 Providing care according to standard [facility] Work Phone: Start: 10-01-2021 Provision of activity privileges [facility] Work Phone: Start: 10-01-2021 Referral to occupational therapist [facility] Work Phone: Start: 10-01-2021 Referral to service [facility] Work Phone: Start: 10-01-2021 Taking nasal swab [facility] Work Phone: Start: 10-01-2021 [facility] Work Phone: Start: 10-01-2021 Viral nucleic acid assay [facility] Work Phone: Start: 10-01-2021 Verification routine [facility] Work Phone: Start: 10-01-2021 Streptococcus pneumoniae antigen assay [facility] Work Phone: Start: 10-01-2021 End: 10-01-2021 [facility] Work Phone: Start: 10-01-2021 Admission procedure [facility] Work Phone: Start: 10-01-2021 Blood culture [facility] Work Phone: Start: 10-01-2021 Blood culture [facility] Work Phone: Start: 08-07-2021 Patient discharge [facility] Work Phone: Start: 08-06-2021 Following clinical pathway protocol [facility] Work Phone: Start: 08-06-2021 Ambulation without limitation [facility] Work Phone: Start: 08-06-2021 Assessment of risk of venous thromboembolism [facility] Work Phone: Start: 08-06-2021 Care regimes management [facility] Work Phone: Start: 08-06-2021 Elevation of head of bed [facility] Work Phone: Start: 08-06-2021 Inhalation therapy procedure [facility] Work Phone: Start: 08-06-2021 Insertion of catheter into peripheral vein [facility] Work Phone: Start: 08-06-2021 Oxygen therapy [facility] Work Phone: Start: 08-06-2021 Patient education [facility] Work Phone: Start: 08-06-2021 Providing care according to standard [facility] Work Phone: Start: 08-06-2021 Referral to occupational therapist [facility] Work Phone: Start: 08-06-2021 Referral to service [facility] Work Phone: Start: 08-06-2021 End: 08-06-2021 [facility] Work Phone: Start: 08-06-2021 Admission procedure [facility] Work Phone: Start: 08-06-2021 Bacteria identified in Blood by Culture Blood Culture [facility] Work Phone: Start: 08-06-2021 Patient referral to dietitian [facility] Work Phone: Start: 05-20-2021 Development of care plan [facility] Work Phone: Start: 05-18-2021 Patient discharge [facility] Work Phone: Start: 05-15-2021 Referral to service [facility] Work Phone: Start: 05-14-2021 [facility] Work Phone: Start: 05-12-2021 Neurological assessment [facility] Work Phone: Start: 05-11-2021 Neurological assessment [facility] Work Phone: Start: 05-08-2021 Referral to service [facility] Work Phone: Start: 05-07-2021 Oxygen therapy [facility] Work Phone: Start: 05-05-2021 Developing a treatment plan [facility] Work Phone: Start: 05-05-2021 Development of care plan [facility] Work Phone: Start: 05-05-2021 Following clinical pathway protocol [facility] Work Phone: Start: 05-05-2021 Patient referral to dietitian [facility] Work Phone: Start: 05-04-2021 Following clinical pathway protocol [facility] Work Phone: Start: 05-04-2021 Speech therapy assessment [facility] Work Phone: Start: 05-04-2021 Admission procedure [facility] Work Phone: Start: 05-04-2021 Measuring intake and output [facility] Work Phone: Start: 05-04-2021 Patient referral to dietitian [facility] Work Phone: Start: 05-04-2021 Referral to occupational therapist [facility] Work Phone: Start: 05-04-2021 Referral to service [facility] Work Phone: Start: 05-04-2021 Vital signs measurements [facility] Work Phone: Start: 05-04-2021 [facility] Work Phone: Start: 05-04-2021 Application of antithromboembolic stockings [facility] Work Phone: Alanine aminotransfe rase [Enzymatic activity/volume] in Serum or Plasma [facility] Work Phone: Alanine aminotransfe rase [Enzymatic activity/volume] in Serum or Plasma [facility] Albumin [Mass/volume ] in Serum or Plasma [facility] Work Phone: Albumin [Mass/volume ] in Serum or Plasma [facility] Alkaline phosphatase [Enzymatic activity/volume] in Serum or Plasma [facility] Work Phone: Alkaline phosphatase [Enzymatic activity/volume] in Serum or Plasma [facility] Anion gap in Serum or Plasma [facility] Anion gap measurement [facility] Work Phone: Anion gap measurement [facility] Anion gap measurement [facility] Aspartate aminotrans ferase [Enzymatic activity/volume] in Serum or Plasma [facility] Work Phone: Aspartate aminotrans ferase [Enzymatic activity/volume] in Serum or Plasma [facility] Bacteria identified in Blood by Culture Blood Culture [facility] Work Phone: Bacteria identified in Sputum by Culture [facility] Bacteria identified in Sputum by Culture [facility] Bacteria identified in Sputum by Respiratory culture [facility] Work Phone: Bacteria identified in Unspecified specimen by Anaerobe culture [facility] Bacteria identified in Urine by Culture Urine Culture [facility] Work Phone: Bacteria identified in Urine by Culture [facility] Basic metabolic 2008 panel with ionized calcium - Serum or Plasma [facility] Basic metabolic 2008 panel with ionized calcium - Serum or Plasma [facility] Basic metabolic 2008 panel with ionized calcium - Serum or Plasma [facility] Bilirubin, total measurement [facility] Work Phone: Bilirubin, total measurement [facility] Blood culture [facility] Work Phone: Bone marrow biopsy, needle or trocar [facility] BUN/Creatinine ratio [facility] Work Phone: BUN/Creatinine ratio [facility] BUN/Creatinine ratio [facility] BUN/Creatinine ratio [facility] C reactive protein [Mass/volume] in Serum or Plasma [facility] Calcium [Mass/volume ] in Serum or Plasma [facility] Work Phone: Calcium [Mass/volume ] in Serum or Plasma [facility] Calcium [Mass/volume ] in Serum or Plasma [facility] Calcium [Mass/volume ] in Serum or Plasma [facility] Carbon dioxide, tota l [Moles/volume] in Central venous blood [facility] Carbon dioxide, tota l [Moles/volume] in Serum or Plasma [facility] Work Phone: Carbon dioxide, tota l [Moles/volume] in Serum or Plasma [facility] Carbon dioxide, tota l [Moles/volume] in Serum or Plasma [facility] CBC W Auto Different ial panel - Blood [facility] Work Phone: CBC W Auto Different ial panel - Blood [facility] CBC W Auto Different ial panel - Blood [facility] CBC W Auto Different ial panel - Blood [facility] CBC W Auto Different ial panel - Blood [facility] CBC W Auto Different ial panel - Blood [facility] CBC W Auto Different ial panel - Blood [facility] CBC W Auto Different ial panel - Blood [facility] CBC W Auto Different ial panel - Blood [facility] CBC W Auto Different ial panel - Blood [facility] CBC W Auto Different ial panel - Blood [facility] CBC W Auto Different ial panel - Blood [facility] Chloride [Moles/volu me] in Serum or Plasma [facility] Work Phone: Chloride [Moles/volu me] in Serum or Plasma [facility] Chloride [Moles/volu me] in Serum or Plasma [facility] Cobalamin (Vitamin B 12) [Mass/volume] in Serum or Plasma [facility] Comprehensive metabo lic 1999 panel - Serum or Plasma [facility] Comprehensive metabo lic 1999 panel - Serum or Plasma [facility] Comprehensive metabo lic 1999 panel - Serum or Plasma [facility] Comprehensive metabo lic 1999 panel - Serum or Plasma [facility] Comprehensive metabo lic 1999 panel - Serum or Plasma [facility] Creatinine [Mass/vol ume] in Serum or Plasma [facility] Creatinine [Moles/vo lume] in Serum or Plasma [facility] Work Phone: Creatinine [Moles/vo lume] in Serum or Plasma [facility] Creatinine [Moles/vo lume] in Serum or Plasma [facility] CT Abdomen and Pelvi s W contrast IV [facility] CT Chest [facility] CT Chest [facility] CT Chest [facility] Cytology report of B lashon fluid Cyto stain [facility] Erythrocyte mean cor puscular volume determination [facility] Erythrocyte sediment ation rate [facility] Erythropoietin (EPO) [Units/volume] in Serum or Plasma [facility] Erythropoietin (EPO) [Units/volume] in Serum or Plasma [facility] Exercise tolerance test [facility] Ferritin [Mass/volum e] in Serum or Plasma [facility] Work Phone: Ferritin [Mass/volum e] in Serum or Plasma [facility] Ferritin [Mass/volum e] in Serum or Plasma [facility] Ferritin [Mass/volum e] in Serum or Plasma [facility] Ferritin [Mass/volum e] in Serum or Plasma [facility] Ferritin [Mass/volum e] in Serum or Plasma [facility] Ferritin [Mass/volum e] in Serum or Plasma [facility] Ferritin [Mass/volum e] in Serum or Plasma [facility] Ferritin [Mass/volum e] in Serum or Plasma [facility] Ferritin [Mass/volum e] in Serum or Plasma [facility] Folate [Mass/volume] in Serum or Plasma [facility] Folate [Mass/volume] in Serum or Plasma [facility] Folate [Moles/volume ] in Serum or Plasma [facility] Folate [Moles/volume ] in Serum or Plasma [facility] Glucose [Mass/volume ] in Serum or Plasma [facility] Work Phone: Glucose [Mass/volume ] in Serum or Plasma [facility] Glucose [Mass/volume ] in Serum or Plasma [facility] Glucose [Mass/volume ] in Serum or Plasma [facility] Haptoglobin [Mass/vo lume] in Serum or Plasma [facility] Hematocrit [Volume F raction] of Blood [facility] Work Phone: Hematocrit [Volume F raction] of Blood [facility] Hematocrit [Volume F raction] of Blood [facility] Hematocrit [Volume F raction] of Blood [facility] Hematocrit [Volume F raction] of Blood [facility] Hematocrit [Volume F raction] of Blood [facility] Hemoglobin [Mass/vol ume] in Blood [facility] Work Phone: Hemoglobin [Mass/vol ume] in Blood [facility] Hemoglobin [Mass/vol ume] in Blood [facility] Hemoglobin [Mass/vol ume] in Blood [facility] Hemoglobin [Mass/vol ume] in Blood [facility] Hemoglobin [Mass/vol ume] in Blood [facility] Hemoglobin [Mass/vol ume] in Blood [facility] Hemoglobin A1c/Hemoglobin.total in Blood [facility] Work Phone: Iron and Iron bindin g capacity panel - Serum or Plasma [facility] Work Phone: Iron and Iron bindin g capacity panel - Serum or Plasma [facility] Iron and Iron bindin g capacity panel - Serum or Plasma [facility] Iron and Iron bindin g capacity panel - Serum or Plasma [facility] Iron and Iron bindin g capacity panel - Serum or Plasma [facility] Iron and Iron bindin g capacity panel - Serum or Plasma [facility] Iron and Iron bindin g capacity panel - Serum or Plasma [facility] Iron and Iron bindin g capacity panel - Serum or Plasma [facility] Iron and Iron bindin g capacity panel - Serum or Plasma [facility] Iron and Iron bindin g capacity panel - Serum or Plasma [facility] Iron and Iron bindin g capacity panel - Serum or Plasma [facility] Lactate dehydrogenas e [Enzymatic activity/volume] in Body fluid by Pyruvate to lactate reaction [facility] Lactate dehydrogenas e [Enzymatic activity/volume] in Body fluid by Pyruvate to lactate reaction [facility] Lactate dehydrogenas e measurement [facility] Work Phone: Lactate dehydrogenas e measurement [facility] Lactate dehydrogenas e measurement [facility] Lactate dehydrogenas e measurement [facility] Lactate dehydrogenas e measurement [facility] Lactate dehydrogenas e measurement [facility] Lactate dehydrogenas e measurement [facility] Lactate dehydrogenas e measurement [facility] Lactate dehydrogenas e measurement [facility] Legionella pneumophi la Ag [Presence] in Urine [facility] Work Phone: Leukocytes [#/volume ] in Blood [facility] Work Phone: Leukocytes [#/volume ] in Blood [facility] Leukocytes [#/volume ] in Blood [facility] Lipid 1996 panel - S bev or Plasma [facility] Magnesium [Mass/volu me] in Serum or Plasma [facility] Magnesium measurement [facility] Magnesium measurement [facility] Magnesium measurement [facility] Magnesium measurement [facility] Magnesium measurement [facility] Mean corpuscular hem oglobin concentration determination [facility] Work Phone: Mean corpuscular hem oglobin concentration determination [facility] Mean corpuscular hem oglobin concentration determination [facility] Mean corpuscular hem oglobin determination [facility] Work Phone: Mean corpuscular hem oglobin determination [facility] Mean corpuscular hem oglobin determination [facility] Measurement of occul t blood in stool specimen using immunoassay [facility] Measurement of occul t blood in stool specimen using immunoassay [facility] Measurement of renal function [facility] Work Phone: Measurement of renal function [facility] Measurement of renal function [facility] Measurement of renal function [facility] Measurement of respi ratory function [facility] Measurement of respi ratory function [facility] Microscopic observat ion [Identifier] in Unspecified specimen by Gram stain Gram Stain [facility] Work Phone: Microscopic urinalysis [facility] Natriuretic peptide. B prohormone N-Terminal [Mass/volume] in Serum or Plasma [facility] Neutrophil count [facility] Work Phone: Neutrophil count [facility] Neutrophil percent differential count [facility] Work Phone: Neutrophil percent differential count [facility] Organism count, micr oscopic method [facility] Patient Education [facility] Work Phone: Patient referral [facility] Work Phone: Platelets [#/volume] in Blood [facility] Work Phone: Platelets [#/volume] in Blood [facility] Platelets [#/volume] in Blood [facility] Polysomnography [facility] Potassium [Moles/vol ume] in Serum or Plasma [facility] Work Phone: Potassium [Moles/vol ume] in Serum or Plasma [facility] Potassium [Moles/vol ume] in Serum or Plasma [facility] Potassium measurement [facility] Prostate specific an tigen measurement [facility] Protein [Mass/volume ] in Body fluid [facility] Protein [Mass/volume ] in Body fluid [facility] Red blood cell count [facility] Work Phone: Red blood cell count [facility] Red blood cell count [facility] Red cell distributio n width determination [facility] Work Phone: Red cell distributio n width determination [facility] Red cell distributio n width determination [facility] Respiratory Culture Respiratory Culture [facility] Work Phone: Respiratory microbial culture Respiratory Culture [facility] Work Phone: Respiratory pathogen s DNA and RNA 12b panel - Unspecified specimen by JUSTIN with probe detection [facility] Work Phone: Reticulocyte count [facility] Work Phone: Reticulocyte count [facility] Serum chloride measurement [facility] Serum inorganic phos phate measurement [facility] Serum inorganic phos phate measurement [facility] Sodium [Moles/volume ] in Serum or Plasma [facility] Work Phone: Sodium [Moles/volume ] in Serum or Plasma [facility] Sodium [Moles/volume ] in Serum or Plasma [facility] Sodium measurement [facility] Streptococcus pneumo niae antigen assay [facility] Work Phone: Thyroid stimulating hormone measurement [facility] Total protein measurement [facility] Work Phone: Total protein measurement [facility] Troponin T.cardiac [Mass/volume] in Serum or Plasma by High sensitivity method [facility] Troponin T.cardiac [Mass/volume] in Serum or Plasma by High sensitivity method [facility] Urea nitrogen [Mass/ volume] in Serum or Plasma [facility] Work Phone: Urea nitrogen [Mass/ volume] in Serum or Plasma [facility] Urea nitrogen [Mass/ volume] in Serum or Plasma [facility] Urea nitrogen [Mass/ volume] in Serum or Plasma [facility] Urine culture [facility] Urine microscopy: ep ithelial cells [facility] Urine microscopy: red cells [facility] Heart limited [facility] Vitamin B12 measurement [facility] Vitamin B12 measurement [facility] Vitamin B12 measurement [facility] Vitamin B12 measurement [facility] Vitamin B12 measurement [facility] Vitamin D, 25-hydrox y measurement [facility] White blood cell count [facility] XR Chest PA and Lateral [facility] Work Phone: [facility] Immunizations Immunization Date Immunization Notes Care Provider Fa cility 03-01-2023 Influenza High-Dose Quadrivalent Dr. Donna Will Work Phone: [facility] 01-08-2022 influenza, injectabl e, quadrivalent, preservative free [employer] Work Phone: [facility] 01-08-2022 influenza, seasonal, injectable [employer] Work Phone: [facility] 05-09-2021 pneumococcal conjuga te vaccine, [address] Donna Will Work Phone: [facility] 12-22-2020 Covid (Pfizer) Dr. Donna mckeon Work Phone: [facility] 11-24-[address] Donna Will Work Phone: [facility] 11-24-2020 Dr. Donna pollock MD Work Phone: [facility] 05-19-2020 Covid (Pfizer) Dr. Donna mckeon Work Phone: [facility] 04-27-2020 Covid (Pfizer) Dr. Donna mckeon Work Phone: [facility] 11-25-[address] Page Will Work Phone: [facility] Work Phone: 11-25-2011 pneumococcal vaccine , unspecified formulation Dr. Donna Will Work Phone: [facility] Payers Date Payer Category Payer Medicare [id number] 2021 Self-pay [id number] Medicare [id number] Unknown [id number] 2.16.8 [id number] Unknown [id number] 2.16.8 [id number] Unknown [id number] 2.16.8 [id number] Unknown [id number] 2.16.8 [id number] Unknown [id number] 2.16.8 [id number] Unknown [id number] 2.16.8 [id number] Unknown [id number] 2.16.8 [id number] Unknown [id number] 2.16.8 [id number] Unknown [id number] 2.16.8 [id number] Unknown [id number] 2.16.8 [id number] Unknown [id number] 2.16.8 [id number] Unknown [id number] 2.16.8 [id number] Unknown [id number] 2.16.8 [id number] Unknown [id number] 2.16.8 [id number] Unknown [id number] 2.16.8 [id number] Unknown [id number] 2.16.8 [id number] Unknown [id number] 2.16.8 [id number] Unknown [id number] 2.16.8 [id number] Unknown [id number] 2.16.8 40.1.657925.3.579.2.462 Unknown [id number] 2.16.8 40.1.400927.3.579.2.462 Unknown [id number] 2.16.8 40.1.498893.3.579.2.462 Unknown [id number] 2.16.8 40.1.328727.3.579.2.462 Unknown [id number] 2.16.8 40.1.208133.3.579.2.462 Unknown [id number] 2.16.8 40.1.130387.3.579.2.462 Unknown [id number] 2.16.8 40.1.619119.3.579.2.462 Unknown [id number] 2.16.8 40.1.216645.3.579.2.462 Unknown [id number] 2.16.8 40.1.302530.3.579.2.462 Unknown [id number] 2.16.8 40.1.999497.3.579.2.462 Unknown [id number] 2.16.8 40.1.861716.3.579.2.462 Unknown [id number] 2.16.8 40.1.350675.3.579.2.462 Unknown [id number] 2.16.8 40.1.194497.3.579.2.462 Unknown [id number] 2.16.8 40.1.372868.3.579.2.462 Unknown [id number] 2.16.8 40.1.039040.3.579.2.462 Unknown [id number] 2.16.8 40.1.035265.3.579.2.462 Unknown [id number] 2.16.8 40.1.025585.3.579.2.462 Unknown [id number] 2.16.8 40.1.541676.3.579.2.462 Unknown [id number] 2.16.8 40.1.935973.3.579.2.462 Unknown [id number] 2.16.8 40.1.922985.3.579.2.462 Unknown [id number] 2.16.8 40.1.326328.3.579.2.462 Unknown [id number] 2.16.8 40.1.450470.3.579.2.462 Unknown [id number] 2.16.8 40.1.552550.3.579.2.462 Unknown [id number] 2.16.8 40.1.566695.3.579.2.462 Unknown [id number] 2.16.8 40.1.642967.3.579.2.462 Unknown [id number] 2.16.8 40.1.400997.3.579.2.462 Unknown [id number] 2.16.8 40.1.179654.3.579.2.462 Unknown [id number] 2.16.8 40.1.333442.3.579.2.462 Unknown [id number] 2.16.8 40.1.284183.3.579.2.462 Unknown [id number] 2.16.8 40.1.792276.3.579.2.462 Unknown [id number] 2.16.8 40.1.169291.3.579.2.462 Unknown [id number] 2.16.8 40.1.795639.3.579.2.462 Unknown [id number] 2.16.8 40.1.457190.3.579.2.462 Unknown [id number] 2.16.8 40.1.829128.3.579.2.462 Unknown [id number] 2.16.8 40.1.339855.3.579.2.462 Unknown [id number] 2.16.8 40.1.586372.3.579.2.462 Unknown [id number] 2.16.8 40.1.653034.3.579.2.462 Unknown [id number] 2.16.8 40.1.699699.3.579.2.462 Unknown [id number] 2.16.8 40.1.200679.3.579.2.462 Unknown [id number] 2.16.8 40.1.689412.3.579.2.462 Unknown [id number] 2.16.8 40.1.841975.3.579.2.462 Unknown [id number] 2.16.8 40.1.161023.3.579.2.462 Social History Date Type Detail Facility Start: 05-29-2021 End: 06-05-2023 Tobacco smoking status NHIS Unknown if ever smoked [facility] Start: 03-14-2021 Occasional [facility] Start: 03-14-2021 None [facility] Start: 03-14-2021 Cigarettes [facility] Start: 1950 Sex Assigned At Male [facility] Start: 1950 Sex Assigned At Not on file [facility] Gender identity Not on file [facility] Start: 06-23-2024 End: 08-21-2024 Tobacco smoking status NHIS Current some day smoker [facility] Start: 06-30-2024 Sex Male (finding) [facility] Start: 08-24-2024 Tobacco smoking stat us MTIS Ex-smoker (finding) [facility] Medical Equipment Procedure Code Equipment Code Equipment Origin al Text Equipment Identifier Dates EGD, with monitored anesthesia care [id number] FDA Start: 04-06-2024 Goals Date Patient Goal Desired Activity /State Functional Status Date Assessment Result Facility 08-25-2024 Functional status Chair [facility] Work Phone: 06-25-2024 Functional status Standby Assist [facility] Work Phone: 06-24-2024 Functional status Ambulates;Stand with Ur inal [facility] Work Phone: 04-08-2024 Functional status Ambulates;Stand with Ur inal [facility] Work Phone: 03-21-2023 Functional status Ambulates;Basilio r;Bathroom Privilege [facility] Work Phone: 03-06-2023 Functional status Ambulates;Bath room Privilege;Active Range of Motion;Stand with Urinal [facility] Work Phone: 11-17-2022 Functional status Ambulates;Bathroom Priv ilege [facility] Work Phone: 02-16-2022 Functional status Chair [facility] Work Phone: 12-11-2021 Functional status Ambulates [facility] Work Phone: 10-26-2021 Functional status Ambulates [facility] Work Phone: 10-02-2021 Functional status Ambulates [facility] Work Phone: 10-01-2021 Functional status Tolerates Activity Well [facility] Work Phone: 08-07-2021 Functional status Patient Activity Chair [facility] Work Phone: 08-07-2021 Functional status Activity Abili ty With Assist of 1 [facility] Work Phone: 08-06-2021 Functional status Activity Abili ty With Assist of 2 [facility] Work Phone: 05-18-2021 Functional status With Assist of 1 [facility] Work Phone: 05-15-2021 Functional status Chair [facility] Work Phone: 05-04-2021 Functional status Ambulates;Chair [facility] Work Phone: 04-28-2021 Functional status With Assist of 2 [facility] Work Phone: 04-27-2021 Functional status Chair [facility] Work Phone: 04-26-2021 Functional status Chair [facility] Work Phone: 04-11-2021 Functional status Ambulates [facility] Work Phone: 03-25-2021 Functional status Chair [facility] Work Phone: Mental Status Date Assessment Result Facility 08-25-2024 Cognitive function Voice/Name [facility] Work Phone: 08-03-2024 Cognitive function Voice/Name [facility] Work Phone: 07-08-2024 Cognitive function Awake;Alert;A ppropriate;Follow s Commands [facility] Work Phone: 06-25-2024 Cognitive function Voice/Name [facility] Work Phone: 05-27-2024 Cognitive function Awake;Alert;A ppropriate;Follow s Commands [facility] Work Phone: 05-20-2024 Cognitive function Voice/Name [facility] Work Phone: 04-08-2024 Cognitive function Voice/Name [facility] Work Phone: 06-05-2023 Cognitive function Voice/Name [facility] Work Phone: 05-09-2023 Cognitive function Awake;Alert;A ppropriate;Follow s Commands [facility] Work Phone: 03-21-2023 Cognitive function Voice/Name [facility] Work Phone: 03-16-2023 Cognitive function Awake;Alert;Follows Co mmands [facility] Work Phone: 03-06-2023 Cognitive function Voice/Name [facility] Work Phone: 02-06-2023 Cognitive function Voice/Name [facility] Work Phone: 01-30-2023 Cognitive function Awake;Alert;A ppropriate;Follow s Commands [facility] Work Phone: 12-16-2022 Cognitive function Arousable To Voice/Nam e [facility] Work Phone: 11-17-2022 Cognitive function Voice/Name [facility] Work Phone: 11-08-2022 Cognitive function Voice/Name [facility] Work Phone: 05-13-2022 Cognitive function Awake;Alert;A ppropriate;Follow s Commands [facility] Work Phone: 05-06-2022 Cognitive function Arousable To Voice/Nam e [facility] Work Phone: 02-16-2022 Cognitive function Appropriate;Cooperativ e [facility] Work Phone: 01-28-2022 Cognitive function Voice/Name [facility] Work Phone: 01-14-2022 Cognitive function Voice/Name [facility] Work Phone: 12-11-2021 Cognitive function Touch/Shaking [facility] Work Phone: 10-26-2021 Cognitive function Voice/Name [facility] Work Phone: 10-02-2021 Cognitive function Voice/Name [facility] Work Phone: 08-07-2021 Cognitive function Level Of Cons ciousness Awake;Alert;Appropriate;Follow s Commands [facility] Work Phone: 08-07-2021 Cognitive function Appropriate;C ooperative;Aggres iane [facility] Work Phone: 08-06-2021 Cognitive function Patient Origlo diana Person;Place;Time [facility] Work Phone: 08-06-2021 Cognitive function Appropriate;[facility] Work Phone: 08-06-2021 Cognitive function Level Of Cons ciousness Awake;Alert;Appropriate;Follow s Commands [facility] Work Phone: 05-18-2021 Cognitive function Voice/Name [facility] Work Phone: 05-12-2021 Cognitive function Appropriate;[facility] Work Phone: 05-03-2021 Cognitive function Voice/Name [facility] Work Phone: 04-28-2021 Cognitive function Voice/Name [facility] Work Phone: 04-26-2021 Cognitive function Appropriate;[facility] Work Phone: 04-25-2021 Cognitive function Voice/Name [facility] Work Phone: 04-11-2021 Cognitive function Voice[facility]Name [facility] Work Phone: 03-25-2021 Cognitive function Voice/Name [facility] Work Phone: Clinical Notes 04-24-2021 to 08-25-2024 Note Date & Type Note Facility 08-25-2024 Hospital Discharg e instructions Additional Instructions Date of Discharge: 08/25/24 [facility] Work Phone: 08-25-2024 Discharge summary Note Date/Time August 25, 2024 3:03p [facility] Medical Records Department [address] [place] [address] Instructions for Home/Discharge Instructions 08/25/24 1108 MR#: [id number] Acct: [id number] Name: SAL ALONZO Jr. Rep #:[id number] : 1950 73 From: Clive Panchal PCP: Dr. Donna Will MD Status:ADM IN Discharge Instructions Diet Discharge Diet: 8 Cup Fluid Restriction and 2000 mg Sodium Diet DC O2, CPAP, BIPAP needs Home O2 Discharge instructions: Yes Type of respiratory needs?: Oxygen Oxygen frequency: Continuous Continuous oxygen liters per minute: 6 Dressing / Incision Discharge Activity: Return to Normal Activity Weight Bearing Status: Weight bearing as tolerated Dressing / Incision Call your doctor if you observe: Fever of 101 or Higher, Coldness, Increased Pain, Numbness or Tingling, Change in Color, Inability to urinate, Inability to have a bowel movement, Shortness of breath, Dizziness, Fainting spells, Swellingin the ankles, Chest pain, Prolonged hiccupping, Increased palpitations (irregular heartbeat) and Calf discomfort Follow Up Care When: IN 2 WEEKS Test Results: Test results from this visit will be discussed in further detail at your follow-up appointment, if applicable. Discharge Plan Admission Admit Date/Time: 08/21/24 12:12 Primary Reason for Your Visit: Heart failure exacerbation, pulmonary edema Attending Provider: Clive Sharp Primary Care Provider: Donna Will Consulting Providers: Isaias Granados; Cisco Cortés; Alexi Roblero; Anthony Singleton; Jordan Alonzo; Meet Mckeon; Carlito Cárdenas; Claudine Andrade; Marvin Coats; Dimas Alvarenga; Kashif Berg; Elizabeth Wilson; Edward,Aric; Dugan,Ashanti; Alberta,Mitch; Sha,Rajeev; Ava,Roberto; Arianna,Nikolai; Leyda Fischer; Yolie Zapata; Dao Avila; Madi Tavarez; Zhang Concepcion; Kee York; Jordan Davis; Adriana Goel; Farida Todd; Linda Huizar; Katelynn Greenberg GOLF INSTRUCTOR; Ashleigh Mcconnell Discharge Orders/Prescriptions Prescriptions: New atorvastatin 40 mg Tablet 40 mg PO QHS 30 Days Qty: 30 2RF sennosides-docusate sodium [Stimulant Laxative Plus] 8.6-50 mg Tablet 2 tab PO BID PRN (Reason: Constipation) Qty: 0 0RF bumetanide 1 mg tablet 1 mg PO BID 30 Days Qty: 60 1RF spironolactone 25 mg tablet 25 mg PO DAILY 30 Days Qty: 30 0RF Rx Instructions: Hold for serum potassium more than 5.0 Continued multivitamin Tablet 1 tab PO DAILY tamsulosin [...] infected, or steroid patients MEDIUM DOSING ALGORITHIM escitalopram oxalate 10 mg tablet 10 mg PO DAILY 90 Days Qty: 90 3RF mirtazapine [Remeron] 15 mg tablet 7.5 mg PO QHS Qty: 90 3RF (DME) FreeStyle Basliio 3 Sensor Device See Rx Instructions .Route Qty: 1 5RF Rx Instructions: As directed (DME) FreeStyle Basilio 3 [place] Misc See Rx Instructions .Route Qty: 1 0RF Rx Instructions: As directed cholecalciferol (vitamin D3) 50 mcg (2,000 unit) capsule 50 mcg PO QDAY Changed carvedilol 3.125 mg tablet 6.25 mg PO BID Qty: 60 11RF Rx Instructions: must administer with a meal/food pantoprazole [Protonix] 40 mg tablet,delayed release (DR/EC) 40 mg PO DAILY 30 Days Qty: 0 0RF Held insulin glargine-yfgn 100 unit/mL (3 mL) insulin pen 20 unit subcut BIDCM Qty: 15 1RF Hold Instructions: Hold scheduled insulin. Discontinued atorvastatin 40 mg tablet 20 mg PO QHS Qty: 90 3RF furosemide [Lasix] 40 mg tablet 20 mg PO DAILY Qty: 60 1RF Referrals / Follow Up: Donna Will MD [Primary Care Provider] - Gris Naik, GERA-C [Med Staff - Adv Practice Prof] - Within 2 Weeks (Bilateral pleural effusion, COPD.) Elizabeth Velazquez, PA [Med Staff - Adv Practice Prof] - Within 2 Weeks (For heart failure, pulmonary edema) Disposition Disposition (needs filled in before D/C Order can be placed): Home Health Service 08/25/24 7393<Electronically signed by Clive Sharp MD>Clive Sharp MD CC: GOLF INSTRUCTORChas Huizar; GOLF INSTRUCTOR-C Katelynn Greenberg; Dr. Cisco Cortés MD; Dr. Isaias Granados MD; Dr. Alexi Roblero MD; Dr. Jordan Alonzo MD; Dr. Jordan Davis DO; Dr. Anthony Singleton DO; Dr. Meet Mckeon MD; Dr. Carlito Cárdenas MD;Dr. Marvin Coats MD; Dr. Farida Todd MD; Dr. Adriana Goel MD; Dr. Dimas Alvarenga MD; Dr. Kashif Berg MD; Dr. Elizabeth Wilson MD; Dr. Aric Leon MD; Dr. Donna Will MD; Dr. Kee York MD; Dr. Ashanti Duagn MD; Dr. Rajeev Dalton MD; Dr. Mitch Pinzon MD; Dr. Roberto Escalante MD; Dr. Yolie Zapata MD; Dr. Leyda Fischer MD; Dr. Nikolai Keller DO; Dr. Dao Avila DO; Dr. Madi Tavarez MD; Dr. Zhang Concepcion MD; Dr. Claudine Andrade MD; YANELIS Ley ~ [facility] Work Phone: 1(305) 928-359307-02-2025 Radiology Diagnostic study [facility]07-01-2025 Consult note Author [facility] Note Date/Time August 24, 2024 2:23p [facility] Medical Records Department [address] [place] [address] Consultation - Infectious Dx 08/24/24 1419 MR#: [id number] Acct: [id number] Name: SAL ALONZO Andre Roper Rep #:[id number] : 1950 73 From: Kee York MD PCP: Dr. Donna Will MD Status:ADM IN Location: [place] [address] Assessment & Plan Assessment/Plan (1) Acute and chronic respiratory failure with hypercapnia: PLAN: Patient had a large right pleural effusion that could explain his worsening respiratory symptoms in the setting of advanced COPD. No fevers and anormal white count. Close to 2 L of pleural fluid was removed from the right pleural space this morning. In reviewing the pleural fluid analysis, no signs of infection. I suspect that the abnormal sputum culture with MRSA and Enterobacter are colonization. Clinically and radiographically I doubt the patient has bacterial pneumonia. Okay to discontinue vancomycin and levofloxacin. This will reduce the risk of C. difficile infection as well as reduce the risk of emergence of antimicrobial resistance HPI Consult Data Date of Consult: 08/24/24 HPI Narrative Reason for Consultation: Abnormal sputum culture with MRSA and Enterobacter isolated HPI Narrative: SAL ALONZO, is a 73 M who presents multiple comorbidities including ischemic heart disease, severe COPD on home O2 at least 4 L baseline who was admitted because of increasing shortness of breath and found to have an abnormal chest x-ray. In reviewing the chest x-ray showed a large right pleural effusion. This morning patient underwent therapeutic thoracentesis of the right pleural space with 1. 7 3 L of clear pleural fluid removed. Currently alert and responsive no documented fevers. Normal white count. Sputum culture grew out MRSA and Enterobacter species. Currently on vancomycin plus levofloxacin. Patient denies any pleuritic chest pain. No hemoptysis. No fevers at home. No gastrointestinal distress. [facility] Medical History MRSA (methicillin resistant staph aureus) [...] cell carcinoma Atherosclerosis of coronary artery of crow heart without angina pectoris Pneumonia Non-Hodgkin lymphoma [...] 1 tab PO DAILY vitamin 09/1307/07/24 History atorvastatin 40 mg tablet 20 mg (1/2 [...] U-100 100 unit/mL See Protocol subcut A [facility] high 11/12/23 07/07/24 Rx (3 mL) subcutaneous pen blood glucose 1 month #15 mL needle (disp) 32 gauge 32 gauge x #100 ea 11/12/23 Unk nown Rx 07/09 (Easy Touch Hypodermic Needle) pen needle, diabetic 32 gauge x #100 ea 12/03/23 Unkno wn Rx 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 sensor (FreeStyle #1 ea 12/24/23 Unknown Rx Basilio 3 Sensor device) 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,sales support coordinator,cont #1 ea 12/24/23 Unknown Rx (FreeStyle Basilio 3 [place]) furosemide 40 mg tablet (Lasix) 20 mg (1/2 x 40 mg) PO DAILY 03/08/24 07/07/24 Rx diuretic #60 tabs empagliflozin 10 mg tablet 10 mg PO QDAY diabetes 02/2507/07/24 History (Jardiance) ferrous sulfate 325 mg (65 mg 325 mg PO QODAY Suppleme nt 04/05/24 07/07/24 History iron) tablet (FeroSul) insulin glargine-yfgn 100 unit/mL 20 unit (0.2 mL) sub cut BIDCM high 06/25/24 07/08/24 Rx (3 mL) subcutaneous pen blood glucose #15 mL cholecalciferol (vitamin D3) 50 50 mcg PO QDAY 5 07/07/24 History mcg (2,000 unit) capsule pantoprazole 40 mg tablet,delayed 40 mg PO BID 5 07/07/24 History release (Protonix) carvedilol 3.125 mg tablet 3.125 mg PO BID BP #60 tabs 07/26/24 Unknown Rx Allergy/AdvReac Type Severity Reaction Status Date / Time No Known Allergies Allergy Verified 08/21/24 10:26 Family History Father Arthritis Bleeding disorder Hypertension [...] exercise seatbelt use: always ROS ROS Narrative As stated in history of present illness others negative Physical Exam Narrative Alert responsive does not appear toxic lungs with some coarse breath sounds heart exam S1-S2 abdomen soft nontender. Lab / Micro Data 08/24/24 04:52 08/24/24 04:52 Labs: Laboratory Results - last 24 hr 08/23/24 13:30: Magnesium 1.9 08/23/24 14:52: WBC 8.1, RBC 2.73 L, Hgb 8.4 L, Hct 28.0 L, MCV 102.6 H, MCH 30.8, MCHC 30.0 L, RDW Std Deviation 68.2 H, RDW Coeff of Rafael 18.0 H, Plt Count 219, MPV 11.4, Immature Gran % (Auto) 1.100 H, Neut % (Auto) 70.6 H, Lymph % (Auto) 16.5 L, [place] % (Auto) 10.1 H, Eos % (Auto) 1.6, Baso % (Auto) 0.1, Absolute Neuts (auto) 5.7, Absolute Lymphs (auto) 1.34, Nucleated RBC % 0.4, Differential Comment SCANNED, Anisocytosis 1+, Sodium 144, Potassium 3.9, Chloride 101, Carbon Dioxide 31.8, Anion Gap 12, BUN 33 H, Creatinine 1.41 H, Estim Creat Clear Calc 55.07, Est GFR (MDRD) Non-Af 52 L, BUN/Creatinine Ratio 23.5 H, Glucose 223 H, Calcium 8.3 08/24/24 04:52: WBC 9.1, RBC 2.72 L, Hgb 8.2 L, Hct 27.5 L, MCV 101.1 H, MCH 30.1, MCHC 29.8 L, RDW Std Deviation 67.4 H, RDW Coeff of Rafael 18.1 H, Plt Count 218, MPV 11.6, Immature Gran % (Auto) 1.000 H, Neut % (Auto) 68.6, Lymph % (Auto) 16.2 L, [place] % (Auto) 11.1 H, Eos % (Auto) 2.9, Baso % (Auto) 0.2, Absolute Neuts (auto) 6.2, Absolute Lymphs (auto) 1.47, Nucleated RBC % 0.3, Anisocytosis 1+, Ovalocytes 1+, Sodium 146 H, Potassium 3.7, Chloride 102, Carbon Dioxide 35.6 H, Anion Gap 8, BUN 33 H, Creatinine 1.41 H, Estim Creat Clear Calc 55.82, Est GFR (MDRD) Non-Af 52 L, BUN/Creatinine Ratio 23.3 H, Glucose 55 L, Calcium 8.1, Lactate Dehydrogenase 191, Total Protein 5.4 L 08/24/24 08:45: Fluid Source PLEURAL FLUID/LEFT, Fluid Color YELLOW, Fluid Appearance SL CLDY, Fluid WBC 0.526, Fluid RBC 294, Fluid Tot Cell Count 0.580, Fld Polynuclear WBCs # 0.176, Fld Polynuclear WBCs % 33.4, Fluid Mononuclear WBCs 0.350, Fld Mononuclear WBCs % 66.6, Fluid Neutrophils 47, Fluid [id number], Fluid Monocytes 7, Fluid Macrophages 10, Fld Mesothelial Cells 1, Fluid Other Cells 4, Fl Pathologist Comment May follow, Fluid Comment 2 SEE COMMENT Micro: Microbiology 08/21/24 16:15 Sputum, Expectorated/Coughed Gram Stain - Final 08/21/24 16:15 Sputum, Expectorated/Coughed Respiratory Culture - Preliminary Enterobacter cloacae complex Meth. resistant Staph. aureus 08/21/24 10:45 Blood Culture (Wb) - Right Wrist Blood Culture - Preliminary 08/21/24 12:15 Blood Culture (Wb) - Right Hand Blood Culture - Preliminary No growth in 48 hours. 08/21/24 11:28 Urine, Clean Catch Urine Culture - Final Culture exhibits no growth. Imaging Radiology Impression Echocardiogram 08/23/24 05:55 Interpretation Summary The estimated ejection fraction is 25-30 %. Severe LV systolic dysfunction No significant change from previous echocardiogram May/2024, EF was 25% Ordering Physician: Clive Sharp Referring Physician: Donna Will M.D. Performed By: Cathy Luna RDCS Thoracentesis Ultrasound 08/24/24 08:30 IMPRESSION: Successful right thoracentesis. Laboratory results pending. Reading Location: [place] [address] 08/24/24 142 <Electronically signed by Kee York MD> Cosigner Signature (if applicable): CC: Dr. Donna Will MD~ Signed [facility] Work Phone: 1(432) 384-443507-01-2025 Progress note Author Clive Sharp [facility] Note Date/Time August 24, 2024 1:24p m [facility] Medical Records Department [address] [place] [address] Progress Note - Hospitalist 08/24/24 1152 MR#: [id number] Acct: [id number] Name: SAL ALONZO Jr. Rep #:[id number] : 1950 73 From: Clive Panchal PCP: Dr. Donna Will MD Status:ADM IN Location: [place] [address] Reason for Visit Reason for Visit: Diagnoses Acute and chronic respiratory failure with hypercapnia (08/21/24) Objective Data Objective Data Vital Signs: Vital Signs Temp Pulse Resp BP Pulse Ox O2 Del Method O2 Flow Rate 98.4 F 68 18 110/57 L 95 Nasal Cannula 4 08/24/24 09:18 08/24/24 11:33 08/24/24 11:33 08/24/24 09:18 08/24/24 09:18 08/24/24 09:18 08/24/24 09:18 FiO2 35 08/23/24 01:45 Oxygen Flow Rate (L/min) 4 Oxygen Delivery Method Nasal Cannula Weight: 224 lb 3.362 oz Body Mass Index (BMI) 31.2 Intake & Output: Intake and Output for Last 24 Hours 08/22/24 08/23/24 08/24/24 23:59 23:59 23:59 Intake Total 1310 / 1310 1530.75 / 1530.75 275 / 275 Output Total 3150 / 3150 2200 / 2200 2230 / 2230 Balance -1840 / -1840 -669.25 / -669.25 -1955 / -1955 Lab / Micro Data 08/24/24 04:52 08/24/24 04:52 Labs: Laboratory Results - last 24 hr 08/23/24 13:30: Magnesium 1.9 08/23/24 14:52: WBC 8.1, RBC 2.73 L, Hgb 8.4 L, Hct 28.0 L, MCV 102.6 H, MCH 30.8, MCHC 30.0 L, RDW Std Deviation 68.2 H, RDW Coeff of Rafael 18.0 H, Plt Count 219, MPV 11.4, Immature Gran % (Auto) 1.100 H, Neut % (Auto) 70.6 H, Lymph % (Auto) 16.5 L, [place] % (Auto) 10.1 H, Eos % (Auto) 1.6, Baso % (Auto) 0.1, Absolute Neuts (auto) 5.7, Absolute Lymphs (auto) 1.34, Nucleated RBC % 0.4, Differential Comment SCANNED, Anisocytosis 1+, Sodium 144, Potassium 3.9, Chloride 101, Carbon Dioxide 31.8, Anion Gap 12, BUN 33 H, Creatinine 1.41 H, Estim Creat Clear Calc 55.07, Est GFR (MDRD) Non-Af 52 L, BUN/Creatinine Ratio 23.5 H, Glucose 223 H, Calcium 8.3 08/24/24 04:52: WBC 9.1, RBC 2.72 L, Hgb 8.2 L, Hct 27.5 L, MCV 101.1 H, MCH 30.1, MCHC 29.8 L, RDW Std Deviation 67.4 H, RDW Coeff of Rafael 18.1 H, Plt Count 218, MPV 11.6, Immature Gran % (Auto) 1.000 H, Neut % (Auto) 68.6, Lymph % (Auto) 16.2 L, [place] % (Auto) 11.1 H, Eos % (Auto) 2.9, Baso % (Auto) 0.2, Absolute Neuts (auto) 6.2, Absolute Lymphs (auto) 1.47, Nucleated RBC % 0.3, Anisocytosis 1+, Ovalocytes 1+, Sodium 146 H, Potassium 3.7, Chloride 102, Carbon Dioxide 35.6 H, Anion Gap 8, BUN 33 H, Creatinine 1.41 H, Estim Creat Clear Calc 55.82, Est GFR (MDRD) Non-Af52 L, BUN/Creatinine Ratio 23.3 H, Glucose 55 L, Calcium 8.1, Lactate Dehydrogenase 191, Total Protein 5.4 L 08/24/24 08:45: Fluid WBC 0.526, Fluid Tot Cell Count 0.580, Fld Polynuclear WBCs # 0.176, Fld Polynuclear WBCs % 33.4, Fluid Mononuclear WBCs 0.350, Fld Mononuclear WBCs % 66.6 Micro: Microbiology 08/21/24 16:15 Sputum, Expectorated/Coughed Gram Stain - Final 08/21/24 16:15 Sputum, Expectorated/Coughed Respiratory Culture - Preliminary Enterobacter cloacae complex Meth. resistant Staph. aureus 08/21/24 10:45 Blood Culture (Wb) - Right Wrist Blood Culture - Preliminary 08/21/24 12:15 Blood Culture (Wb) - Right Hand Blood Culture - Preliminary No growth in 48 hours. 08/21/24 11:28 Urine, Clean Catch Urine Culture - Final Culture exhibits no growth. 08/21/24 15:15 Nasal Secretion MRSA (PCR) - Final Meth. resistant Staph. aureus 08/21/24 15:15 Mucosa - Nasopharyngeal SARS-CoV-2, Influenza & RSV (PCR) - Final Radiography Diagnostic Testing: Radiology Impression Echocardiogram 08/23/24 05:55 Interpretation Summary The estimated ejection fraction is 25-30 %. Severe LV systolic dysfunction No significant change from previous echocardiogram May/2024, EF was 25% Ordering Physician: Clive Sharp Referring Physician: Donna Will M.D. Performed By: Cathy Luna RDCS Thoracentesis Ultrasound 08/24/24 08:30 IMPRESSION: Successful right thoracentesis. Laboratory results pending. Reading Location: [place] [address] Physical Exam Narrative Seen and examined. Patient on his baseline 4 L of oxygen. Had right-sided thoracocentesis today and complains of some soreness. Discussed with the patient's son on the phone over the clinical course and he agreed for hospice. Physical exam General: Alert, Oriented x3, Cooperative. Obesity, grade 1 BMI 31.4 kg/m? HEENT: Atraumatic, PERRLA, EOMI, Normocephalic. Oral: Oral mucosa dry. Neck: Supple, Negative Carotid Bruits. No JVD Chest wall/Lungs: Air entry improved in right lung, after right thoracocentesis. Mild bibasilar coarse crepitations Cardiovascular: Sinus rhythm with PVCs, Normal S1,S2, No M/G/R Abdomen: Bowel Sounds Present, Soft, Non Tender, Non-Distended : No dysuria. No renal angle tenderness. No suprapubic tenderness. Extremities: Bilateral 1+ ankle pitting edema, Capillary Refill Less than 3 Seconds Skin: No rashes, No breakdown Musculoskeletal: No Tenderness to Palpation of Joints or Extremities. ROM restricted at knees and hip joints Neurological: Cranial nerves II-XII grossly intact, DTR 2+/4. No acute focal neurological deficit. Psych/Mental Status: Normal Affect, Appropriate. Assessment & Plan Assessment/Plan (1) Acute and chronic respiratory failure with hypercapnia: PLAN: Plan This is a 73-year-old gentleman being admitted for extreme shortness of breath/labored breathing and hypoxia and ABG suggestive of acute on chronic combined respiratory failure 1. Acute on chronic combined hypoxic and hypercarbic respiratory failure due toCHF exacerbation and mild COPD exacerbation: ABG 7.45/58/69 on 40% FiO2, 15/9, RR 14/min. On ABG bicarb is 42 but usually it is about 30. BMP bicarb is 29.3 yesterday which I think is inaccurate. Therefore chronic mild CO2 retention. Continue BiPAP support. [employer] consulted. 08/22: Discussed with the seismometer operator Dr. Berg yesterday. consult reviewed. Usually, previous ABG shows PCO2 around 45-48 but this time it is elevated to 58and bicarb around 13 but admission to 42. Impression was not to use BiPAP or AVAPS empirically because of his pH is compensated 7.45 with chronic CO2 retention, pCO2 58 therefore BiPAP/AVAPS can can cause respiratory alkalosis leading to Aryan Mcclellan respiration. He recommended simple CPAP pressure of 10to augment LV transpleural contractility followed by outpatient medical pulse oximetry with a split-night study. Advised to discontinue steroid. MRSA nasal screen positive but possible colonization. Not having any systemic signs and symptoms of pneumonia like fever, tachycardia on baseline oxygen. No cough. 08/23: Yesterday sputum culture showed GNR. Today, sputum culture updated Enterobacter cloacae 2+, staff aureus 2+ and MRSA nasal screen is positive. Therefore antibiotic plan is changed. Ceftriaxone discontinued. Started on IV vancomycin and Levaquin to cover a of organism. ID consult for further recommendation. Plan for right-sided thoracocentesis today. Pleural fluid analytical labs ordered. 08/24: Continue your antibiotic. Serum protein 5.4, LDH 191, fluid protein, LDH and pH pending. Pleural fluid culture also sent. No leukocytosis. ID consulted 2. Acute on chronic HFrEF: proBNP is high 11,267, chest x-ray is reviewed and shows pulmonary congestion/central hilar congestion but no significant consolidation. Started on IV Bumex 2 mg every 8 hourly and titrate the dose as per urine output and hemodynamics. Heart failure core measures including intakeand output, fluid restriction less than 1500 mL, daily weight monitoring, kidneyand electrolytes monitoring. Previous echo on September 04, 2023 with EF 25%, mildlydilated LV, severe global hypokinesis, PASP 30 mmHg. 08/22: BUN/creatinine increased from 21/1.27-25/1.37. Patient had 2850 mL urine output yesterday and 1200 since midnight as documented. Therefore decrease her dose of Bumex 2 mg IV twice daily. Bicarb also increased from 29-34 although BMP bicarb is not reliable. ABG total bicarb was 40. Troponin fluctuated 97, 103 and 95. Due to increased cardiac demand. 2D echo tomorrow a.m. 08/23: 2D echo, limited ordered and pending 08/24: 2D echo shows EF 25 to 30% similar to previous echo of March 2024. Severe systolic dysfunction. Continue diuretic Bumex 2 mg IV twice daily. Creatinine 1.41 stable. 3. Mild COPD exacerbation with history of chronic smoking: Patient quit smokingabout 2 months ago in June 2024. 55 pack years of smoking. Patient is being managed on scheduled bronchodilator, IV Solu-Medrol, Mucinex, incentive spirometry and Pep. Zithromax 500 mg IV 1 dose and then changed to oral for next 2 doses, total 3 doses for COPD exacerbation. Flu, COVID and RSV PCR ordered. Sputum culture ordered. 08/22: Discontinue IV Solu-Medrol 08/23: On scheduled bronchodilator. Continue incentive spirometry. 4. DM type II: Glucose is 150 mg/dL. A1c tomorrow a.m. On Lantus 20 units subcutaneous twice daily continue with hypoglycemia protocol. Accu-Chek before meals and at bedtime with Humalog sliding scale coverage and hypoglycemia protocol. 08/22 A1c 7.4%. Glucose is high between 250-319. She has scheduled Humalog insulin added. But patient was on Solu-Medrol and which is discontinued now therefore glucose profile expected to improve. 08/23: Glucose is better controlled. Continue Lantus and scheduled Humalog insulin 08/24: Patient has hypoglycemia, glucose 55. Holding scheduled Lantus and Humaloginsulin. Monitor Gluc[place]ck checks. 5. CKD stage IIIa: BUN/creatinine appears on the baseline . Previous./Creatinine 33/1.27 on June 2024 and fluctuates between 1.41-1.65. 08/22: BUN/creatinine increased from /.-25/1.37. Patient had 2850 mL urine output yesterday and 1200 since midnight as documented. Therefore decrease her dose of Bumex 2 mg IV twice daily. 08/24: Creatinine 1.41 stable. 6. 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 Bilateral leg swelling. Started on Lovenox 40 mL subcu daily with holding parameters given the patient has history of GI bleed found to have AVM on endoscopy. 7. History of GI bleed due to AVM and chronic GERD: Last EGD in March 2024 as mentioned below. Continue PPI twice daily. Impression: - Normal esophagus. - No gross lesions in the entire stomach. - Three bleeding angiodysplastic lesions in the duodenum. Treated with a heater probe. Clip was placed. 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 8. Chronic CAD status post stent: Continue home medications 9. Chronic BPH with obstruction -Continue home medications Flomax and finasteride 10. Depression/anxiety -Continue home medications 11. DVT prophylaxis: As mentioned above. With high risk of DVT/PE and high risk of bleeding, Lovenox continued with PPI with holding parameters if bleeding. Living will/advanced directive/end of life care: Patient does have living will or advanced directive. His power of penetration tester for healthcare his but also with son and granddaughter involved in decision making. After discussion of benefits/risks procedures involved with full code, DNR CC arrest and DNR CC, the patient opted for DNR CC arrest with no intubation Patient doesn't want artificial life support including intubation, tube feed, ventilator and/chest compression, central venous catheter, vasopressor and DC shock if needed Total time spent in [id number] encounter in discussion of advanced directive 17 minutes. 08/23/24 13:30: Magnesium 1.9 08/23/24 14:52: WBC 8.1, RBC 2.73 L, Hgb 8.4 L, Hct 28.0 L, MCV 102.6 H, MCH 30.8, MCHC 30.0 L, RDW Std Deviation 68.2 H, RDW Coeff of Rafael 18.0 H, Plt Count 219, MPV 11.4, Immature Gran % (Auto) 1.100 H, Neut % (Auto) 70.6 H, Lymph % (Auto) 16.5 L, [place] % (Auto) 10.1 H, Eos % (Auto) 1.6, Baso % (Auto) 0.1, Absolute Neuts (auto) 5.7, Absolute Lymphs (auto) 1.34, Nucleated RBC % 0.4, Differential Comment SCANNED, Anisocytosis 1+, Sodium 144, Potassium 3.9, Chloride 101, Carbon Dioxide 31.8, Anion Gap 12, BUN 33 H, Creatinine 1.41 H, Estim Creat Clear Calc 55.07, Est GFR (MDRD) Non-Af 52 L, BUN/Creatinine Ratio 23.5 H, Glucose 223 H, Calcium 8.3 08/24/24 04:52: WBC 9.1, RBC 2.72 L, Hgb 8.2 L, Hct 27.5 L, MCV 101.1 H, MCH 30.1, MCHC 29.8 L, RDW Std Deviation 67.4 H, RDW Coeff of Rafael 18.1 H, Plt Count 218, MPV 11.6, Immature Gran % (Auto) 1.000 H, Neut % (Auto) 68.6, Lymph % (Auto) 16.2 L, [place] % (Auto) 11.1 H, Eos % (Auto) 2.9, Baso % (Auto) 0.2, Absolute Neuts (auto) 6.2, Absolute Lymphs (auto) 1.47, Nucleated RBC % 0.3, Anisocytosis 1+, Ovalocytes 1+, Sodium 146 H, Potassium 3.7, Chloride 102, Carbon Dioxide 35.6 H, Anion Gap 8, BUN 33 H, Creatinine 1.41 H, Estim Creat Clear Calc 55.82, Est GFR (MDRD) Non-Af52 L, BUN/Creatinine Ratio 23.3 H, Glucose 55 L, Calcium 8.1, Lactate Dehydrogenase 191, Total Protein 5.4 L 08/24/24 08:45: Fluid WBC 0.526, Fluid Tot Cell Count 0.580, Fld Polynuclear WBCs # 0.176, Fld Polynuclear WBCs % 33.4, Fluid Mononuclear WBCs 0.350, Fld Mononuclear WBCs % 66.6 Clinical Impression(s) from Imaging Studies Chest X-Ray 08/21/24 11:02 IMPRESSION: Worsened moderate right pleural effusion. Trace left base effusion. Superimposed focal consolidation not excluded within the right lower lobe. [id number] pulmonary edema. Median sternotomy wires. Cardiac silhouette is unchanged. No pneumothorax. Reading Location: [facility] Charges/Coding Visit Charges Inpatient E&M: 06395 [facility] Hosp L2 08/24/24 1324 <Electronically signed by Clive Sharp MD> Cosigner Signature (if applicable): CC: ~ Signed [facility] Work Phone: 1([phone]) 303-465007-01-2025 Radiology Diagnostic study [facility]06-30-2025 Consult note Author Veronica Coughlin [facility] Note Date/Time August 23, 2024 5:05 pm [facility] Medical Records Department [address] [place] [address] Pharmacokinetic/Renal -Consult 08/23/24 1701 MR#: [id number] Acct: [id number] Name: SAL ALONZO Andre Roper Rep #:[id number] : 1950 73 From: Veronica Roy PCP: Dr. Donna Will MD Status:ADM IN Y Location: [facility] [id number] Consult Antibiotic Management Pharmacy has been consulted to manage selected antibiotic: Vancomycin Type of Intervention Type of Consult: New start Suspected Infection Suspected Infection: Pneumonia Prior Doses of Antibiotics Prior Doses of Antibiotics Received/Current Regimen: 08/23/24 @ 1623, Vancomycin 1500mg x1 given Labs Labs: Sodium 144 mmol/L (133-145) 08/23/24 14:52 Potassium 3.9 mmol/L (3.3-5.1) 08/23/24 14:52 Chloride 101 mmol/L (98-108) 08/23/24 14:52 Carbon Dioxide 31.8 mmol/L (21.0-32.0) 08/23/24 14:52 Anion Gap 12 (5-15) 08/23/24 14:52 BUN 33 mg/dL (4-19) H 08/23/24 14:52 Creatinine 1.41 mg/dL (0.70-1.20) H 08/23/24 14:52 Est GFR (MDRD) Non-Af 52 (>60) L 08/23/24 14:52 BUN/Creatinine Ratio 23.5 RATIO (10-20) H 08/23/24 14:52 Glucose 223 mg/dL (70-99) H 08/23/24 14:52 Microbiology Microbiology: Microbiology 08/21/24 12:15 Blood Culture (Wb) - Right Hand Blood Culture - Preliminary No growth in 48 hours. 08/21/24 10:45 Blood Culture (Wb) - Right Wrist Blood Culture - Preliminary No growth in 48 hours. 08/21/24 11:28 Urine, Clean Catch Urine Culture - Final Culture exhibits no growth. 08/21/24 16:15 Sputum, Expectorated/Coughed Gram Stain - Final 08/21/24 16:15 Sputum, Expectorated/Coughed Respiratory Culture - Preliminary Enterobacter cloacae complex Staphylococcus aureus 08/21/24 15:15 Nasal Secretion MRSA (PCR) - Final Meth. resistant Staph. aureus 08/21/24 15:15 Mucosa - Nasopharyngeal SARS-CoV-2, Influenza & RSV (PCR) - Final Dosing Weight Weight used for dosin kg Estimated Creatinine Clearance Estimated Creatinine Clearance: 55 Goal Trough Goal Trough: 15-20 mcg/mL Pharmacy Plan for Drug Dosing Pharmacy Plan for Drug Dosing: VAncomycin 1250mg every 12 hours starting 07/25/24 @ 0430 Pharmacy Service will continue to monitor and adjust dosing as required. Follow-Up Labs Follow-Up Labs: Trough: Vancomycin Date/Time Labs Ordered Labs to be done on [date and time ordered]: 08/25/24 @ 0400 08/23/24 7675 <Electronically signed by Veronica Coughlin> Date _ Veronica Coguhlin Cosigner Signature (if applicable): Date CC: ~ Signed [facility] Work Phone: 1(458) 190-825606-30-2025 Progress note Author Clive Sharp [facility] Note Date/Time August 23, 2024 2:24 pm [facility] Medical Records Department [address] [place] [address] Progress Note - Hospitalist 08/23/2404 MR#: [id number] Acct: [id number] Name: CHERISAL Jr. Rep #:[id number] : 1950 73 From: Clive Panchal PCP: Dr. Donna Will MD Status:ADM IN Location: [place] [address] Reason for Visit Reason for Visit: Diagnoses Acute and chronic respiratory failure with hypercapnia (08/21/24) Objective Data Objective Data Vital Signs: Vital Signs Temp Pulse Resp BP Pulse Ox O2 Del Method O2 Flow Rate 97.9 F 66 20 H 110/57 L 96 Nasal Cannula 4 08/23/24 04:15 08/23/24 07:35 08/23/24 07:35 08/23/24 04:15 08/23/24 07:35 08/23/24 07:35 08/23/24 07:35 FiO2 35 08/23/24 01:45 Oxygen Flow Rate (L/min) 4 Oxygen Delivery Method Nasal Cannula Weight: 217 lb 13.067 oz Body Mass Index (BMI) 30.4 Intake & Output: Intake and Output for Last 24 Hours 08/21/24 08/22/24 08/23/24 23:59 23:59 23:59 Intake Total 855.33 / 855.33 1310 / 1310 Output Total 2850 / 2850 3150 / 3150 600 / 600 Balance -1993.67 / -1993. -1839 / -1839 -600 / -600 Lab / Micro Data 08/22/24 04:07 08/22/24 04:07 Labs: Laboratory Results - last 24 hr 08/22/24 11:36: POC Glucose 333 H 08/22/24 16:29: POC Glucose 175 H 08/22/24 21:34: POC Glucose 129 H 08/23/24 05:04: Lactate Dehydrogenase 195, Total Protein 5.8 L Micro: Microbiology 08/21/24 15:15 Nasal Secretion MRSA (PCR) - Final Meth. resistant Staph. aureus 08/21/24 16:15 Sputum, Expectorated/Coughed Gram Stain - Final 08/21/24 16:15 Sputum, Expectorated/Coughed Respiratory Culture - Preliminary GNR lactose fisheries officer 08/21/24 15:15 Mucosa - Nasopharyngeal SARS-CoV-2, Influenza & RSV (PCR) - Final Physical Exam Narrative Seen and examined. Patient on his baseline 4 L of oxygen. Is scheduled for right-sided thoracocentesis today. Was evaluated by seismometer operator and discussed with him. BiPAP was changed to CPAP. Physical exam General: Alert, Oriented x3, Cooperative. Obesity, grade 1 BMI 31.4 kg/m? HEENT: Atraumatic, PERRLA, EOMI, Normocephalic. Oral: Oral mucosa dry. Neck: Supple, Negative Carotid Bruits. No JVD Chest wall/Lungs: Air entry diminished in right lung, right moderate pleural effusion. No crepitations Cardiovascular: Sinus rhythm with PVCs, Normal S1,S2, No M/G/R Abdomen: Bowel Sounds Present, Soft, Non Tender, Non-Distended : No dysuria. No renal angle tenderness. No suprapubic tenderness. Extremities: Bilateral 2+ thigh-high pitting edema, Capillary Refill Less than 3Seconds Skin: No rashes, No breakdown Musculoskeletal: No Tenderness to Palpation of Joints or Extremities. ROM restricted at knees and hip joints Neurological: Cranial nerves II-XII grossly intact, DTR 2+/4. No acute focal neurological deficit. Psych/Mental Status: Normal Affect, Appropriate. Assessment & Plan Assessment/Plan (1) Acute and chronic respiratory failure with hypercapnia: PLAN: Plan This is a 73-year-old gentleman being admitted for extreme shortness of breath/labored breathing and hypoxia and ABG suggestive of acute on chronic combined respiratory failure 1. Acute on chronic combined hypoxic and hypercarbic respiratory failure due toCHF exacerbation and mild COPD exacerbation: ABG 7.45/58/69 on 40% FiO2, 15/9, RR 14/min. On ABG bicarb is 42 but usually it is about 30. BMP bicarb is 29.3 yesterday which I think is inaccurate. Therefore chronic mild CO2 retention. Continue BiPAP support. [employer] consulted. 08/22: Discussed with the seismometer operator Dr. Berg yesterday. consult reviewed. Usually, previous ABG shows PCO2 around 45-48 but this time it is elevated to 58and bicarb around 13 but admission to 42. Impression was not to use BiPAP or AVAPS empirically because of his pH is compensated 7.45 with chronic CO2 retention, pCO2 58 therefore BiPAP/AVAPS can can cause respiratory alkalosis leading to Aryan Mcclellan respiration. He recommended simple CPAP pressure of 10to augment LV transpleural contractility followed by outpatient medical pulse oximetry with a split-night study. Advised to discontinue steroid. MRSA nasal screen positive but possible colonization. Not having any systemic signs and symptoms of pneumonia like fever, tachycardia on baseline oxygen. No cough. 08/23: Yesterday sputum culture showed GNR. Today, sputum culture updated Enterobacter cloacae 2+, staff aureus 2+ and MRSA nasal screen is positive. Therefore antibiotic plan is changed. Ceftriaxone discontinued. Started on IV vancomycin and Levaquin to cover a of organism. ID consult for further recommendation. Plan for right-sided thoracocentesis today. Pleural fluid analytical labs ordered. 2. Acute on chronic HFrEF: proBNP is high 11,267, chest x-ray is reviewed and shows pulmonary congestion/central hilar congestion but no significant consolidation. Started on IV Bumex 2 mg every 8 hourly and titrate the dose as per urine output and hemodynamics. Heart failure core measures including intakeand output, fluid restriction less than 1500 mL, daily weight monitoring, kidneyand electrolytes monitoring. Previous echo on September 04, 2023 with EF 25%, mildlydilated LV, severe global hypokinesis, PASP 30 mmHg. 08/22: BUN/creatinine increased from 21/1.27-25/1.37. Patient had 2850 mL urine output yesterday and 1200 since midnight as documented. Therefore decrease her dose of Bumex 2 mg IV twice daily. Bicarb also increased from 29-34 although BMP bicarb is not reliable. ABG total bicarb was 40. Troponin fluctuated 97, 103 and 95. Due to increased cardiac demand. 2D echo tomorrow a.m. 08/23: 2D echo, limited ordered and pending 3. Mild COPD exacerbation with history of chronic smoking: Patient quit smokingabout 2 months ago in June 2024. 55 pack years of smoking. Patient is being managed on scheduled bronchodilator, IV Solu-Medrol, Mucinex, incentive spirometry and Pep. Zithromax 500 mg IV 1 dose and then changed to oral for next 2 doses, total 3 doses for COPD exacerbation. Flu, COVID and RSV PCR ordered. Sputum culture ordered. 08/22: Discontinue IV Solu-Medrol 08/23: On scheduled bronchodilator. Continue incentive spirometry. 4. DM type II: Glucose is 150 mg/dL. A1c tomorrow a.m. On Lantus 20 units subcutaneous twice daily continue with hypoglycemia protocol. Accu-Chek before meals and at bedtime with Humalog sliding scale coverage and hypoglycemia protocol. 08/22 A1c 7.4%. Glucose is high between 250-319. She has scheduled Humalog insulin added. But patient was on Solu-Medrol and which is discontinued now therefore glucose profile expected to improve. 08/23: Glucose is better controlled. Continue Lantus and scheduled Humalog insulin 5. CKD stage IIIa: BUN/creatinine appears on the baseline 21/1.27. Previous./Creatinine 33/1.27 on June 2024 and fluctuates between 1.41-1.65. 08/22: BUN/creatinine increased from 21/1.27-25/1.37. Patient had 2850 mL urine output yesterday and 1200 since midnight as documented. Therefore decrease her dose of Bumex 2 mg IV twice daily. 08/23: Labs ordered. 6. 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 Bilateral leg swelling. Started on Lovenox 40 mL subcu daily with holding parameters given the patient has history of GI bleed found to have AVM on endoscopy. 7. History of GI bleed due to AVM and chronic GERD: Last EGD in March 2024 as mentioned below. Continue PPI twice daily. Impression: - Normal esophagus. - No gross lesions in the entire stomach. - Three bleeding angiodysplastic lesions in the duodenum. Treated with a heater probe. Clip was placed. 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 8. Chronic CAD status post stent: Continue home medications 9. Chronic BPH with obstruction -Continue home medications Flomax and finasteride 10. Depression/anxiety -Continue home medications 11. DVT prophylaxis: As mentioned above. With high risk of DVT/PE and high risk of bleeding, Lovenox continued with PPI with holding parameters if bleeding. Living will/advanced directive/end of life care: Patient does have living will or advanced directive. His power of penetration tester for healthcare his but also with son and granddaughter involved in decision making. After discussion of benefits/risks procedures involved with full code, DNR CC arrest and DNR CC, the patient opted for DNR CC arrest with no intubation Patient doesn't want artificial life support including intubation, tube feed, ventilator and/chest compression, central venous catheter, vasopressor and DC shock if needed Total time spent in [id number]-[id number] encounter in discussion of advanced directive 17 minutes. Microbiology Past 72 Hours 08/21/24 12:15 Blood Culture (Wb) - Right Hand Blood Culture - Preliminary No growth in 48 hours. 08/21/24 10:45 Blood Culture (Wb) - Right Wrist Blood Culture - Preliminary No growth in 48 hours. 08/21/24 11:28 Urine, Clean Catch Urine Culture - Final Culture exhibits no growth. 08/21/24 16:15 Sputum, Expectorated/Coughed Gram Stain - Final 08/21/24 16:15 Sputum, Expectorated/Coughed Respiratory Culture - Preliminary Enterobacter cloacae complex Staphylococcus aureus 08/21/24 15:15 Nasal Secretion MRSA (PCR) - Final Meth. resistant Staph. aureus 08/21/24 15:15 Mucosa - Nasopharyngeal SARS-CoV-2, Influenza & RSV (PCR) - Final Laboratory Results 08/22/24 16:29: POC Glucose 175 H 08/22/24 21:34: POC Glucose 129 H 08/23/24 05:04: Lactate Dehydrogenase 195, Total Protein 5.8 L 08/23/24 08:04: POC Glucose 89 08/23/24 13:30: Magnesium 1.9 Clinical Impression(s) from Imaging Studies Chest X-Ray 08/21/24 11:02 IMPRESSION: Worsened moderate right pleural effusion. Trace left base effusion. Superimposed focal consolidation not excluded within the right lower lobe. Yuzf-sy-fbghewll pulmonary edema. Median sternotomy wires. Cardiac silhouette is unchanged. No pneumothorax. Reading Location: [facility] Charges/Coding Visit Charges Inpatient E&M: 79565 Subs Hosp L2 08/23/24 1424 <Electronically signed by Clive Sharp MD> Cosigner Signature (if applicable): CC: ~ Signed [facility] Work Phone: [phone] Progress note Author Clive Sharp [facility] Note Date/Time August 22, 2024 12:5 0pm [facility] Medical Records Department [address] [place] [address] Progress Note - Hospitalist 08/22/24 5170 MR#: [id number] Acct: [id number] Name: CHERISAL Jr. Rep #:[id number] : 1950 73 From: Clive Panchal PCP: Dr. Donna Will MD Status:ADM IN Location: ICU ICU-1 Reason for Visit Reason for Visit: Diagnoses Acute and chronic respiratory failure with hypercapnia (08/21/24) Objective Data Objective Data Vital Signs: Vital Signs Temp Pulse Resp BP Pulse Ox O2 Del Method O2 Flow Rate 97.0 F L 63 20 H 126/61 H 97 Nasal Cannula 4 08/22/24 06:00 08/22/24 07:25 08/22/24 07:25 08/22/24 06:00 08/22/24 07:25 08/22/24 07:25 08/22/24 07:25 FiO2 40 08/22/24 05:00 Oxygen Flow Rate (L/min) 4 Oxygen Delivery Method Nasal Cannula Weight: 219 lb 2.232 oz Body Mass Index (BMI) 30.5 Intake & Output: Intake and Output for Last 24 Hours 08/20/24 08/21/24 08/22/24 23:59 23:59 23:59 Intake Total 855.33 / 855.33 Output Total 2850 / 2850 1200 / 1200 Balance - / - -1199 / -1200 Lab / Micro Data 08/22/24 04:07 08/22/24 04:07 Labs: Laboratory Results - last 24 hr 08/21/24 10:45: WBC 10.3, RBC 2.83 L, Hgb 8.7 L, Hct 28.8 L, MCV 101.8 H, MCH 30.7, MCHC 30.2 L, RDW Std Deviation 68.8 H, RDW Coeff of Rafael 18.4 H, Plt Count 226, MPV 11.3, Immature Gran % (Auto) 1.100 H, Neut % (Auto) 71.0 H, Lymph % (Auto) 15.2 L, [place] % (Auto) 10.5 H, Eos % (Auto) 1.9, Baso % (Auto) 0.3, Absolute Neuts (auto) 7.3, Absolute Lymphs (auto) 1.57, Nucleated RBC % 0.4, Platelet Estimate A, Polychromasia 1+, Anisocytosis 1+, PT 14.1, INR 1.1, APTT 25.6, Sodium 145, Potassium 4.5, Chloride 105, Carbon Dioxide 29.3, Anion Gap 11, BUN 21 H, Creatinine 1.27 H, Estim Creat Clear Calc 62.12, Est GFR (MDRD) Non-Af 59 L, BUN/Creatinine Ratio 16.6, Glucose 150 H, Lactic Acid 1.3, Calcium 8.2, Total Bilirubin 0.49, AST 29, ALT 19, Alkaline Phosphatase 71, Troponin T High Sens 97 H*, [place] [address] H, Total Protein 6.2, Albumin 3.5, Globulin2.7, Albumin/Globulin Ratio 1.3 08/21/24 11:59: Urine Color Yellow, Urine Clarity Cloudy, Urine pH 6.5, Ur Specific [place] 1.010, Urine Protein 30 H, Urine Glucose (UA) 1000 H, Urine Ketones Negative, Urine Occult Blood 10 H, Urine Nitrite Negative, Urine Bilirubin Negative, Urine Urobilinogen Normal, Ur Leukocyte Esterase 500 H, Urine RBC 0-5 SEEN, Urine WBC >100 SEEN, Ur Squamous Epith Cells 0-5 SEEN, UrineBacteria 0 SEEN, Urine Mucus 0 SEEN 08/21/24 12:54: Magnesium 2.0, Troponin T Hi Sens 2 Hr 103 H* 08/21/24 15:15: Troponin T Hi Sens 4Hr 95 H* 08/21/24 17:15: POC Glucose 268 H 08/21/24 21:13: POC Glucose 234 H 08/22/24 04:07: WBC 4.8, RBC 2.68 L, Hgb 8.0 L, Hct 26.5 L, MCV 98.9 H, MCH 29.9, MCHC 30.2 L, RDW Std Deviation 64.9 H, RDW Coeff of Rafael 17.9 H, Plt Count 212, MPV 11.5, Immature Gran % (Auto) 1.200 H, Neut % (Auto) 80.4 H, Lymph % (Auto) 14.1 L, [place] % (Auto) 4.1, Eos % (Auto) 0.0, Baso % (Auto) 0.2, Absolute Neuts (auto) 3.9, Absolute Lymphs (auto) 0.68 L, Nucleated RBC % 0.6, Sodium 144, Potassium 3.9, Chloride 99, Carbon Dioxide 33.8 H, Anion Gap 11, BUN 25 H, Creatinine 1.36 H, Estim Creat Clear Calc 58.11, Est GFR (MDRD) Non-Af 55 L, BUN/Creatinine Ratio 18.1, Glucose 319 H, Hemoglobin A1c 7.4 H, Calcium 8.2, Triglycerides 112, Cholesterol 145, LDL Cholesterol, Calc 77, VLDL Cholesterol 22, HDL Cholesterol 46, Cholesterol/HDL Ratio 3.17, TSH 0.337 08/22/24 06:43: POC Glucose 266 H Micro: Microbiology 08/21/24 15:15 Nasal Secretion MRSA (PCR) - Final Meth. resistant Staph. aureus 08/21/24 15:15 Mucosa - Nasopharyngeal SARS-CoV-2, Influenza & RSV (PCR) - Final ABG Data ABG results: ABG 08/21/24 12:15 Specimen Type ART Sample Site L Radial pH 7.45 Bicarbonate Actual 39.9 H Total CO2 42 Base Excess 16 H O2 Saturation 94 L O2 % 40.0 ABG pCO2 58.0 H ABG pO2 69 L Thompson Test Positive Respiration Rate 14 O2 Delivery Device BiPAP Vent Mode Not entered POC PEEP 9 Radiography Diagnostic Testing: Radiology Impression Chest X-Ray 08/21/24 11:02 IMPRESSION: Worsened moderate right pleural effusion. Trace left base effusion. Superimposed focal consolidation not excluded within the right lower lobe. Eyan-kq-hodiodqp pulmonary edema. Median sternotomy wires. Cardiac silhouette is unchanged. No pneumothorax. Reading Location: [facility] Physical Exam Narrative Seen and examined. Patient on his baseline 4 L of oxygen. Was evaluated by seismometer operator yesterday and discussed with him. BiPAP was changed to CPAP. Physical exam General: Alert, Oriented x3, Cooperative. Obesity, grade 1 BMI 31.4 kg/m? HEENT: Atraumatic, PERRLA, EOMI, Normocephalic. Oral: On BiPAP Neck: Supple, Negative Carotid Bruits. JVD could not be evaluated because of being on BiPAP Chest wall/Lungs: Air entry severely diminished in both lung luu. Bilateralexpiratory rhonchi. Cardiovascular: Regular rate and rhythm, Normal S1,S2, No M/G/R Abdomen: Bowel Sounds Present, Soft, Non Tender, Non-Distended : No dysuria. No renal angle tenderness. No suprapubic tenderness. Extremities: Bilateral 3+ thigh-high pitting edema, Capillary Refill Less than 3Seconds Skin: No rashes, No breakdown Musculoskeletal: No Tenderness to Palpation of Joints or Extremities. ROM restricted at knees and hip joints Neurological: Cranial nerves II-XII grossly intact, DTR 2+/4. No acute focal neurological deficit. Psych/Mental Status: Normal Affect, Appropriate. Assessment & Plan Assessment/Plan (1) Acute and chronic respiratory failure with hypercapnia: PLAN: Plan This is a 73-year-old gentleman being admitted for extreme shortness of breath/labored breathing and hypoxia and ABG suggestive of acute on chronic combined respiratory failure 1. Acute on chronic combined hypoxic and hypercarbic respiratory failure due toCHF exacerbation and mild COPD exacerbation: ABG 7.45/58/69 on 40% FiO2, 15/9, RR 14/min. On ABG bicarb is 42 but usually it is about 30. BMP bicarb is 29.3 yesterday which I think is inaccurate. Therefore chronic mild CO2 retention. Continue BiPAP support. [employer] consulted. 08/22: Discussed with the seismometer operator Dr. Berg yesterday. consult reviewed. Usually, previous ABG shows PCO2 around 45-48 but this time it is elevated to 58and bicarb around 13 but admission to 42. Impression was not to use BiPAP or AVAPS empirically because of his pH is compensated 7.45 with chronic CO2 retention, pCO2 58 therefore BiPAP/AVAPS can can cause respiratory alkalosis leading to Aryan Mcclellan respiration. He recommended simple CPAP pressure of 10to augment LV transpleural contractility followed by outpatient medical pulse oximetry with a split-night study. Advised to discontinue steroid. MRSA nasal screen positive but possible colonization. Not having any signs and symptoms ofpneumonia therefore no indication of treatment. 2. Acute on chronic HFrEF: proBNP is high 11,267, chest x-ray is reviewed and shows pulmonary congestion/central hilar congestion but no significant consolidation. Started on IV Bumex 2 mg every 8 hourly and titrate the dose as per urine output and hemodynamics. Heart failure core measures including intakeand output, fluid restriction less than 1500 mL, daily weight monitoring, kidneyand electrolytes monitoring. Previous echo on September 04, 2023 with EF 25%, mildlydilated LV, severe global hypokinesis, PASP 30 mmHg. 08/22: BUN/creatinine increased from /.27-25/1.37. Patient had 2850 mL urine output yesterday and 1200 since midnight as documented. Therefore decrease her dose of Bumex 2 mg IV twice daily. Bicarb also increased from 29-34 although BMP bicarb is not reliable. ABG total bicarb was 40. Troponin fluctuated 97, 103 and 95. Due to increased cardiac demand. 2D echo tomorrow a.m. 3. Mild COPD exacerbation with history of chronic smoking: Patient quit smokingabout 2 months ago in June 2024. 55 pack years of smoking. Patient is being managed on scheduled bronchodilator, IV Solu-Medrol, Mucinex, incentive spirometry and Pep. Zithromax 500 mg IV 1 dose and then changed to oral for next 2 doses, total 3 doses for COPD exacerbation. Flu, COVID and RSV PCR ordered. Sputum culture ordered. 08/22: Discontinue IV Solu-Medrol 4. DM type II: Glucose is 150 mg/dL. A1c tomorrow a.m. On Lantus 20 units subcutaneous twice daily continue with hypoglycemia protocol. Accu-Chek before meals and at bedtime with Humalog sliding scale coverage and hypoglycemia protocol. 08/22 A1c 7.4%. Glucose is high between 250-319. She has scheduled Humalog insulin added. But patient was on Solu-Medrol and which is discontinued now therefore glucose profile expected to improve. 5. CKD stage IIIa: BUN/creatinine appears on the baseline . Previous./Creatinine /1.27 on June 2024 and fluctuates between 1.41-1.65. 08/22: BUN/creatinine increased from 21/1.27-25/1.37. Patient had 2850 mL urine output yesterday and 1200 since midnight as documented. Therefore decrease her dose of Bumex 2 mg IV twice daily. 6. 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 Bilateral leg swelling. Started on Lovenox 40 mL subcu daily with holding parameters given the patient has history of GI bleed found to have AVM on endoscopy. 7. History of GI bleed due to AVM and chronic GERD: Last EGD in March 2024 as mentioned below. Continue PPI twice daily. Impression: - Normal esophagus. - No gross lesions in the entire stomach. - Three bleeding angiodysplastic lesions in the duodenum. Treated with a heater probe. Clip was placed. 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 8. Chronic CAD status post stent: Continue home medications 9. Chronic BPH with obstruction -Continue home medications Flomax and finasteride 10. Depression/anxiety -Continue home medications 11. DVT prophylaxis: As mentioned above. With high risk of DVT/PE and high risk of bleeding, Lovenox continued with PPI with holding parameters if bleeding. Living will/advanced directive/end of life care: Patient does have living will or advanced directive. His power of penetration tester for healthcare his but also with son and granddaughter involved in decision making. After discussion of benefits/risks procedures involved with full code, DNR CC arrest and DNR CC, the patient opted for DNR CC arrest with no intubation Patient doesn't want artificial life support including intubation, tube feed, ventilator and/chest compression, central venous catheter, vasopressor and DC shock if needed Total time spent in [id number] encounter in discussion of advanced directive 17 minutes. Microbiology Past 72 Hours 08/21/24 15:15 Nasal Secretion MRSA (PCR) - Final Meth. resistant Staph. aureus 08/21/24 15:15 Mucosa - Nasopharyngeal SARS-CoV-2, Influenza & RSV (PCR) - Final Laboratory Results 08/21/24 10:45: WBC 10.3, RBC 2.83 L, Hgb 8.7 L, Hct 28.8 L, MCV 101.8 H, MCH 30.7, MCHC 30.2 L, RDW Std Deviation 68.8 H, RDW Coeff of Rafael 18.4 H, Plt Count 226, MPV 11.3, Immature Gran % (Auto) 1.100 H, Neut % (Auto) 71.0 H, Lymph % (Auto) 15.2 L, [place] % (Auto) 10.5 H, Eos % (Auto) 1.9, Baso % (Auto) 0.3, Absolute Neuts (auto) 7.3, Absolute Lymphs (auto) 1.57, Nucleated RBC % 0.4, Platelet Estimate A, Polychromasia 1+, Anisocytosis 1+, PT 14.1, INR 1.1, APTT 25.6, Sodium 145, Potassium 4.5, Chloride 105, Carbon Dioxide 29.3, Anion Gap 11, BUN 21 H, Creatinine 1.27 H, Estim Creat Clear Calc 62.12, Est GFR (MDRD) Non-Af 59 L, BUN/Creatinine Ratio 16.6, Glucose 150 H, Lactic Acid 1.3, Calcium 8.2, Total Bilirubin 0.49, AST 29, ALT 19, Alkaline Phosphatase 71, Troponin T High Sens 97 H*, [place] [address] H, Total Protein 6.2, Albumin 3.5, Globulin2.7, Albumin/Globulin Ratio 1.3 08/21/24 11:28: Urine Color Cancelled, Urine Clarity Cancelled, Urine pH Cancelled, Ur Specific [place] Cancelled, U Specif Grav (Refrac) Cancelled, Urine Protein Cancelled, Urine Glucose (UA) Cancelled, Urine Ketones Cancelled, Urine Occult Blood Cancelled, Urine Nitrite Cancelled, Urine Bilirubin Cancelled, Urine Urobilinogen Cancelled, Ur Leukocyte Esterase Cancelled, Urine RBC Cancelled, Urine WBC Cancelled, Ur Squamous Epith Cells Cancelled, Ur Transition Epith Cell Cancelled, Ur Renal Epithelial Cell Cancelled, Calcium Oxalate Crystal Cancelled, Uric Acid Crystals Cancelled, Triple Phos Crystals Cancelled, Other Crystals Cancelled, Amorphous Sediment Cancelled, Urine Bacteria Cancelled, Hyaline Casts Cancelled, Fine Granular Casts Cancelled, Coarse Granular Casts Cancelled, Waxy Casts Cancelled, RBC Casts Cancelled, WBC Casts Cancelled, Urine Mucus Cancelled, Urine Trichomonas Cancelled, Urine YeastCancelled 08/21/24 11:59: Urine Color Yellow, Urine Clarity Cloudy, Urine pH 6.5, Ur Specific [place] 1.010, Urine Protein 30 H, Urine Glucose (UA) 1000 H, Urine Ketones Negative, Urine Occult Blood 10 H, Urine Nitrite Negative, Urine Bilirubin Negative, Urine Urobilinogen Normal, Ur Leukocyte Esterase 500 H, Urine RBC 0-5 SEEN, Urine WBC >100 SEEN, Ur Squamous Epith Cells 0-5 SEEN, UrineBacteria 0 SEEN, Urine Mucus 0 SEEN 08/21/24 12:15: Specimen Type ART, Sample Site L Radial, pH 7.45, Bicarbonate Actual 39.9 H, Total CO2 42, Base Excess 16 H, O2 Saturation 94 L, O2 % 40.0, ABG pCO2 58.0 H, ABG pO2 69 L, Thompson Test Positive, Respiration Rate 14, O2 Delivery Device BiPAP, Vent Mode Not entered, POC PEEP 9 08/21/24 12:54: Magnesium 2.0, Troponin T Hi Sens 2 Hr 103 H* 08/21/24 15:15: Troponin T Hi Sens 4Hr 95 H* 08/21/24 17:15: POC Glucose 268 H 08/21/24 21:13: POC Glucose 234 H 08/22/24 04:07: WBC 4.8, RBC 2.68 L, Hgb 8.0 L, Hct 26.5 L, MCV 98.9 H, MCH 29.9, MCHC 30.2 L, RDW Std Deviation 64.9 H, RDW Coeff of Rafael 17.9 H, Plt Count 212, MPV 11.5, Immature Gran % (Auto) 1.200 H, Neut % (Auto) 80.4 H, Lymph % (Auto) 14.1 L, [place] % (Auto) 4.1, Eos % (Auto) 0.0, Baso % (Auto) 0.2, Absolute Neuts (auto) 3.9, Absolute Lymphs (auto) 0.68 L, Nucleated RBC % 0.6, Sodium 144, Potassium 3.9, Chloride 99, Carbon Dioxide 33.8 H, Anion Gap 11, BUN 25 H, Creatinine 1.36 H, Estim Creat Clear Calc 58.11, Est GFR (MDRD) Non-Af 55 L, BUN/Creatinine Ratio 18.1, Glucose 319 H, Hemoglobin A1c 7.4 H, Calcium 8.2, Triglycerides 112, Cholesterol 145, LDL Cholesterol, Calc 77, VLDL Cholesterol 22, HDL Cholesterol 46, Cholesterol/HDL Ratio 3.17, TSH 0.337 08/22/24 06:43: POC Glucose 266 H Clinical Impression(s) from Imaging Studies Chest X-Ray 08/21/24 11:02 IMPRESSION: Worsened moderate right pleural effusion. Trace left base effusion. Superimposed focal consolidation not excluded within the right lower lobe. Phkr-sn-rmzspaad pulmonary edema. Median sternotomy wires. Cardiac silhouette is unchanged. No pneumothorax. Reading Location: [id number] Charges/Coding Visit Charges Inpatient E&M: 80819 Subs Hosp L3 08/22/24 0894 <Electronically signed by Clive Sharp MD> Cosigner Signature (if applicable): CC: ~ Signed ADDENDUM by Dr. 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 Therefore most likely patient has gram-negative luiza pneumonia. 08/22/24 1250<Electronically signed by Clive Sharp MD> Cosigner Signature (if applicable): cc: ~* Signed [facility] Work Phone: [phone] Consult note Author Kashif Berg [facility] Note Date/Time August 21, 2024 5:31 pm [facility] Medical Records Department [address] [place] [id number] Consultation - [employer] 08/21/24 1719 MR#: [id number] Acct: [id number] Name: SAL ALONZO Rep #:[id number] : 1950 73 From: Kashif eBrg MD PCP: Dr. Donna Will MD Status:ADM IN Location: ICU ICU08-1 HPI Consult Data Date of Consult: 08/21/24 HPI Narrative Reason for Consultation: Acute hypoxemic and chronic hypercapnic rrespiratory failure HPI Narrative: SAL ALONZO, is a 73 M who presents with acute SOB. He states he has been hospitalized previously for this in the past, associated with LOC. He denies wheezing or worsening swelling in the extremities with the exception of the L leg, which has been slowly having more swelling problems over time. He drinks ~1500mL fluid a day (~75oz) he says. He has not changed sodium intake. He takes a half tab of lasix daily. He has quit smoking about 2 months ago and does not know how severe his COPD is. He has never been tested for OSAS. He estimates that he cannot walk a full city block before runnign out of breath and uses 4-6Lpm NC O2 at home with a concentrator. IN the ED, patient was so hypoxic and with increase WOB, he required NIPPV. However, at the time of evaluation, he is on 4Lpm NC O2 and in NAD. [facility] Medical History MRSA (methicillin resistant staph aureus) [...] cell carcinoma Atherosclerosis of coronary artery of crow heart without angina pectoris Pneumonia Non-Hodgkin lymphoma [...] 1 tab PO DAILY vitamin 09/1307/07/24 History atorvastatin 40 mg tablet 20 mg (1/2 [...] #100 ea 12/03/23 Unkno wn Rx 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 sensor (FreeStyle #1 ea 12/24/23 Unknown Rx Basilio 3 Sensor device) 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,sales support coordinator,cont #1 ea 12/24/23 Unknown Rx (FreeStyle Basilio 3 [place]) furosemide 40 mg tablet (Lasix) 20 mg (1/2 x 40 mg) PO DAILY 03/08/24 07/07/24 Rx diuretic #60 tabs empagliflozin 10 mg tablet 10 mg PO QDAY diabetes 02/2507/07/24 History (Jardiance) ferrous sulfate 325 mg (65 mg 325 mg PO QODAY Suppleme nt 04/05/24 07/07/24 History iron) tablet (FeroSul) insulin glargine-yfgn 100 unit/mL 20 unit (0.2 mL) sub cut BIDCM high 06/25/24 07/08/24 Rx (3 mL) subcutaneous pen blood glucose #15 mL cholecalciferol (vitamin D3) 50 50 mcg PO QDAY 5 07/07/24 History mcg (2,000 unit) capsule pantoprazole 40 mg tablet,delayed 40 mg PO BID 5 07/07/24 History release (Protonix) carvedilol 3.125 mg tablet 3.125 mg PO BID BP #60 tabs 07/26/24 Unknown Rx Allergy/AdvReac Type Severity Reaction Status Date / Time No Known Allergies Allergy Verified 08/21/24 10:26 Family History Father Arthritis Bleeding disorder Hypertension [...] exercise seatbelt use: always ROS ROS Narrative 12 or more systems reviewed and are negative except as per HPI: mainly complaints related to swelling and SOB Objective Data Objective Data Vital Signs: Vital Signs Last response 3 Temperature 36.7 C 08/21/24 16:00 Temperature Source Temporal 08/21/24 16:00 Pulse Rate 78 08/21/24 17:00 Respiratory Rate 20 H 08/21/24 17:00 Respiratory Effort Short of Breath 08/21/24 10:52 Respiratory Depth Shallow 08/21/24 10:52 Respiratory Pattern Normal 08/21/24 14:54 Blood Pressure 124/62 H 08/21/24 17:00 Blood Pressure Mean 82 08/21/24 17:00 Blood Pressure Source Monitor 08/21/24 17:00 Blood Pressure Position Semi-Fowlers 08/21/24 17:00 Blood Pressure Location Left Arm 08/21/24 17:00 Pulse Ox 94 08/21/24 17:00 Oxygen Delivery Method Nasal Cannula 08/21/24 17:00 Oxygen Flow Rate (L/min) 4 08/21/24 17:00 Fraction of Inspired Oxygen (FIO2) 40 08/21/24 12:00 I&O: I&O Last 24 Hours 3 08/20/24 08/21/24 08/21/24 23:59 11:59 23:59 Intake Total 0 / 158.33 158.33 / 158.33 Balance 0 / 158.33 158.33 / 158.33 I&O: Total Stay 3 08/21/24 10:25 thru 08/21/24 14:04 Intake Total 158.33 Balance 158.33 Current Meds Ordered / Administered: Current meds ordered / Administered 3 Generic Name Dose Route Start Last Admin Trade Name Freq PRN Reason Stop Dose Admin Acetaminophen 1,000 mg 08/21/24 14:00 08/21/24 15:10 Acetaminophen 500 Mg Tablet PO Not Given Q8 AJIT Albuterol/Ipratropium 3 ml 08/21/24 13:53 08/21/24 14:53 Ipratropium/Albuterol Sulfate 3 Ml Ampul.Neb INHALATION 3 ml Q4H.RT [facility] Administration Atorvastatin Calcium 40 mg 08/21/24 22:00 Atorvastatin Calcium 40 Mg Tablet PO QHS [facility] Azithromycin 500 mg 08/22/24 10:00 Azithromycin 250 Mg Tablet PO 08/23/24 10:01 Q24 [facility] Bumetanide 2 mg 08/21/24 14:00 08/21/24 15:09 Bumetanide 1 Mg/4 Ml Vial IV 2 mg Q8H AJIT Administration Carvedilol 3.125 mg 08/21/24 17:00 Carvedilol 3.125 Mg Tablet PO BIDCM [facility] Protocol Cholecalciferol 50 mcg 08/22/24 08:00 Cholecalciferol (Vit D3) 25 Mcg Tablet (1,000 Units) [facility] Enoxaparin Sodium 40 mg 08/21/24 13:53 08/21/24 15:08 Enoxaparin 40 Mg/0.4 Ml Syringe SC 40 mg Q24 AJIT Administration Escitalopram Oxalate 10 mg 08/22/24 10:00 Escitalopram Oxalate 10 Mg Tablet PO DAILY [facility] Ferrous Sulfate 325 mg 08/22/24 12:00 Ferrous Sulfate 325 Mg Tablet PO QODAY@1200 [facility] Finasteride 5 mg 08/22/24 10:00 Finasteride 5 Mg Tablet PO DAILY [facility] Glucagon 1 mg 08/21/24 13:53 Glucagon 1 Mg/Ml Syringe IM X1 PRN Hypoglycemia Protocol Dextrose 250 mls @ 0 mls/hr 08/21/24 13:53 Dextrose 10%-Water IV .Q0M PRN HYPOGLYCEMIA Protocol As Directed Sodium Chloride 250 mls @ 15 mls/hr 08/21/24 14:08 IV .[id number] PRN Saline Flush Sodium Chloride 250 mls @ 15 mls/hr 08/21/24 14:08 IV .[id number] PRN Additional IVPB Infusion Insulin Glargine 20 unit 08/21/24 17:00 Insulin Glargine-Yfgn 100 Unit/Ml Pen SC BIDCM [facility] Insulin Human Lispro 0 unit 08/21/24 16:00 Insulin Lispro 100 Unit/Ml Insuln.Pen SC ACHS [facility] Protocol Methylprednisolone Sodium Succinate 40 mg 08/21/24 22:00 Methylprednisolone Sod Succ 40 Mg/Ml Vial IV Q8 [facility] Mirtazapine 7.5 mg 08/21/24 22:00 Mirtazapine 15 Mg Tablet PO QHS [facility] Multivitamins 1 tablet 08/22/24 08:00 Multivitamins,Therapeutic Tablet [facility] Nitroglycerin 0.4 mg 08/21/24 13:53 Nitroglycerin (Inpatient Use) 0.4 Mg Tab.Subl SL Q5M PRN CARDIAC/CHEST PAIN Pantoprazole Sodium 40 mg 08/21/24 22:00 Pantoprazole Sodium 40 Mg Tablet PO BID [facility] Prochlorperazine Edisylate 5 mg 08/21/24 13:53 Prochlorperazine 10 Mg/2 Ml Vial IV Q4H PRN PRN Breakthrough Nausea/Vomiting Senna/Docusate Sodium 2 tablet 08/21/24 22:00 Senna/Docusate Sodium 1 Tablet PO BID [facility] Sodium Chloride 10 - 40 ml 08/21/24 14:08 0.9% Saline Lock 10 Ml Syringe IV UD PRN SALINE FLUSH Tamsulosin HCl 0.4 mg 08/21/24 22:00 Tamsulosin Hcl 0.4 Mg Capsule PO QHS [facility] Physical Exam Const alert, oriented x3 and no apparent distress General Appearance: cooperative, well developed and ill appearing HEENT normocephalic, head/scalp atraumatic and moist oral mucous membranes HEENT Narrative: Mallmapati 3, neck circumference 16.5in Throat: Negative for posterior oropharynx normal Eyes PERRL, EOMs intact bilaterally, conjunctivae normal and no scleral icterus Neck Neck Narrative: Coud not accurately asses JVD over camera 2/2 lighting and tehcnique Chest inspection of chest normal Resp normal respiratory effort and no use of accessory muscles Effort and Inspection: able to speak in complete sentences Auscultation: rales and diminished lung sounds Percussion: dullness Cardio regular rate and regular rhythm GI normal to inspection, nondistended, normoactive bowel sounds, soft to palpation and non-tender no CVA tenderness Skin no rashes or lesions noted Neuro oriented x3 and CN's II-XII intact bilaterally Psych cooperative and affect normal Lab / Micro Data Attestation: I reviewed the patient's lab results. Lab results narrative: ABG showing a chronic respiratory acidosis and acute respiratory and chronic metabolic alkalosis. 08/21/24 10:45 08/21/24 10:45 Labs: Laboratory Results - last 24 hr 08/21/24 10:45: WBC 10.3, RBC 2.83 L, Hgb 8.7 L, Hct 28.8 L, MCV 101.8 H, MCH 30.7, MCHC 30.2 L, RDW Std Deviation 68.8 H, RDW Coeff of Rafael 18.4 H, Plt Count 226, MPV 11.3, Immature Gran % (Auto) 1.100 H, Neut % (Auto) 71.0 H, Lymph % (Auto) 15.2 L, [place] % (Auto) 10.5 H, Eos % (Auto) 1.9, Baso % (Auto) 0.3, Absolute Neuts (auto) 7.3, Absolute Lymphs (auto) 1.57, Nucleated RBC % 0.4, Platelet Estimate A, Polychromasia 1+, Anisocytosis 1+, PT 14.1, INR 1.1, APTT 25.6, Sodium 145, Potassium 4.5, Chloride 105, Carbon Dioxide 29.3, Anion Gap 11, BUN 21 H, Creatinine 1.27 H, Estim Creat Clear Calc 62.12, Est GFR (MDRD) Non-Af 59 L, BUN/Creatinine Ratio 16.6, Glucose 150 H, Lactic Acid 1.3, Calcium 8.2, Total Bilirubin 0.49, AST 29, ALT 19, Alkaline Phosphatase 71, Troponin T High Sens 97 H*, [place] [address] H, Total Protein 6.2, Albumin 3.5, Globulin2.7, Albumin/Globulin Ratio 1.3 08/21/24 11:28: Urine Color Cancelled, Urine Clarity Cancelled, Urine pH Cancelled, Ur Specific [place] Cancelled, U Specif Grav (Refrac) Cancelled, Urine Protein Cancelled, Urine Glucose (UA) Cancelled, Urine Ketones Cancelled, Urine Occult Blood Cancelled, Urine Nitrite Cancelled, Urine Bilirubin Cancelled, Urine Urobilinogen Cancelled, Ur Leukocyte Esterase Cancelled, Urine RBC Cancelled, Urine WBC Cancelled, Ur Squamous Epith Cells Cancelled, Ur Transition Epith Cell Cancelled, Ur Renal Epithelial Cell Cancelled, Calcium Oxalate Crystal Cancelled, Uric Acid Crystals Cancelled, Triple Phos Crystals Cancelled, Other Crystals Cancelled, Amorphous Sediment Cancelled, Urine Bacteria Cancelled, Hyaline Casts Cancelled, Fine Granular Casts Cancelled, Coarse Granular Casts Cancelled, Waxy Casts Cancelled, RBC Casts Cancelled, WBC Casts Cancelled, Urine Mucus Cancelled, Urine Trichomonas Cancelled, Urine YeastCancelled 08/21/24 11:59: Urine Color Yellow, Urine Clarity Cloudy, Urine pH 6.5, Ur Specific [place] 1.010, Urine Protein 30 H, Urine Glucose (UA) 1000 H, Urine Ketones Negative, Urine Occult Blood 10 H, Urine Nitrite Negative, Urine Bilirubin Negative, Urine Urobilinogen Normal, Ur Leukocyte Esterase 500 H, Urine RBC 0-5 SEEN, Urine WBC >100 SEEN, Ur Squamous Epith Cells 0-5 SEEN, UrineBacteria 0 SEEN, Urine Mucus 0 SEEN 08/21/24 12:54: Magnesium 2.0, Troponin T Hi Sens 2 Hr 103 H* 08/21/24 15:15: Troponin T Hi Sens 4Hr 95 H* Micro: Microbiology 08/21/24 15:15 Mucosa - Nasopharyngeal SARS-CoV-2, Influenza & RSV (PCR) - Final ABG Data ABG results: ABG 08/21/24 12:15 Specimen Type ART Sample Site L Radial pH 7.45 Bicarbonate Actual 39.9 H Total CO2 42 Base Excess 16 H O2 Saturation 94 L O2 % 40.0 ABG pCO2 58.0 H ABG pO2 69 L Thompson Test Positive Respiration Rate 14 O2 Delivery Device BiPAP Vent Mode Not entered POC PEEP 9 Imaging Radiology Impression Chest X-Ray 08/21/24 11:02 IMPRESSION: Worsened moderate right pleural effusion. Trace left base effusion. Superimposed focal consolidation not excluded within the right lower lobe. Mzhz-bn-sbgtlslk pulmonary edema. Median sternotomy wires. Cardiac silhouette is unchanged. No pneumothorax. Reading Location: [id number] CXR reviewed personally: large R effusion Assessment and Plan . Assessment and plan: ICU Problems: Acute hypoxemic respiratory failure Atelectasis Pleural effusion, Right Acute on chronic hypercapnic respiratory failure Plan: Needs updated EF measurement In the setting of CHFrEF(40-45%) DO NOT USE BIPAP S/T OR AVAPS EMPIRICALLY, as alkalsosis can create Aryan Mcclellan Respiration (SOLDERER TORCH) I recommend a simple CPAP pressure of 10cwp to augment LV transmural contractility to be followed up by an outpatient NPSG with split night study Because he has a new set point for his pCO2, he may not qualify for RADS/AVAPS anyway Can discontinue steroid Check CRP level and if <20, no abx needed; if over 40, will benefit from Zpack x3d FLuid restriction 1.5L PO INcrease lasix dose Schedule for thoracentesis with IR or surgery under U/S guidance Kashif Berg MD [facility] Access TeleCare Critical Care Time: The entirety of this encounter was done via Telemedicine 08/21/24 1731 <Electronically signed by Kashif Berg MD> Cosigner Signature (if applicable): CC: Dr. Donna Will MD~ Signed [facility] Work Phone: 1([phone] History and physical note Author Clive Sharp [facility] Note Date/Time August 21, 2024 12:5 8pm [facility] Medical Records Department [address] [place] [address] H&P Exam - Hospitalist 08/21/24 1223 MR#: [id number] Acct: [id number] Name: SAL ALONZO Jr. Rep #:[id number] : 1950 73 From: Clive Panchal PCP: Dr. Donna Will MD Status:ADM IN Location: ICU ICU08-1 HPI - General General Date of Admission: 08/21/24 Date of Service: 08/21/24 Chief Complaint: Shortness of breath progressively worsening for last 2 days. History of heart failure and CHF HPI Narrative SAL ALONZO, is a 73 M with multiple comorbidities and recurrent admission came to ED for worsening shortness of breath for 2 days with cough, chest congestion,thick whitish phlegm but no fever. Today, after he woke up he was so short of breath/labored breathing that he could not walk therefore came to ED. At home he is only on 4 L of oxygen at rest and 5 L on exertion. Patient is stated he does not have any NIPPV/Trelegy/BiPAP. In ED, patient was was initially put on 4 L of oxygen was 88% and then it was increased but is still he was labored breathing therefore put on BiPAP. ABG wasdone subsequently. Patient has dose of Bumex 1 mg IV and Solu-Medrol 125 mg IV Patient is further being admitted in ICU. [facility] Medical History (Updated 08/21/24 @ 12:[address] Clive Sharp MD) MRSA (methicillin resistant staph aureus) culture positive [...] cell carcinoma Atherosclerosis of coronary artery of crow heart without angina pectoris Pneumonia Non-Hodgkin lymphoma [...] 1 tab PO DAILY vitamin 09/1307/07/24 History atorvastatin 40 mg tablet 20 mg (1/2 [...] #100 ea 12/03/23 Unkno wn Rx 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 sensor (FreeStyle #1 ea 12/24/23 Unknown Rx Basilio 3 Sensor device) 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,sales support coordinator,cont #1 ea 12/24/23 Unknown Rx (FreeStyle Basilio 3 [place]) furosemide 40 mg tablet (Lasix) 20 mg (1/2 x 40 mg) PO DAILY 03/08/24 07/07/24 Rx diuretic #60 tabs empagliflozin 10 mg tablet 10 mg PO QDAY diabetes /03/2007/07/24 History (Jardiance) ferrous sulfate 325 mg (65 mg 325 mg PO QODAY Suppleme nt 04/05/24 07/07/24 History iron) tablet (FeroSul) insulin glargine-yfgn 100 unit/mL 20 unit (0.2 mL) sub cut BIDCM high 06/25/24 07/08/24 Rx (3 mL) subcutaneous pen blood glucose #15 mL cholecalciferol (vitamin D3) 50 50 mcg PO QDAY 5 07/07/24 History mcg (2,000 unit) capsule pantoprazole 40 mg tablet,delayed 40 mg PO BID 5 07/07/24 History release (Protonix) carvedilol 3.125 mg tablet 3.125 mg PO BID BP #60 tabs 07/26/24 Unknown Rx Allergy/AdvReac Type Severity Reaction Status Date / Time No Known Allergies Allergy Verified 08/21/24 10:26 Family History Father Arthritis Bleeding disorder Hypertension [...] exercise seatbelt use: always ROS ROS Narrative Limited ROS because of being on BiPAP with labored breathing/respiratory distress Constitutional: Reports fatigue and weakness. No fever. HEENT: Chronic cough Respiratory/Chest: As described in HPI. CVS: Chest congestion. No chest pressure or pain Gastrointestinal: Denies coffee ground emesis, hematemesis or vomiting Genitourinary: Denies burning urination or new urinary tract symptoms Musculoskeletal: Denies acute joint pain or limited range of motion. No acute injury Neurologic: Denies seizure-like symptoms. skin: No ulcer. No rash Endocrinology: Reports systems reviewed and no addt'l complaints, except as documented Hematologic/Lymphatic: IVC filter. History of DVT. Reports systems reviewed and no addt'l complaints, except as documented Rest 14 ROS are negative except as mentioned in HPI Review of Systems ROS Unobtainable: other Details: Being on BiPAP, difficult to communicate Vital Signs Vital Signs Vital Signs: 08/21/24 10:26 08/21/24 10:51 08/21/24 10:52 Temperature 98.2 F Temperature Source Temporal Pulse Rate 81 Respiratory Rate 30 H Respiratory Effort Short of Breath Respiratory Depth Shallow Respiratory Pattern Tachypnea Blood Pressure 122/59 H Blood Pressure Mean 80 Pulse Ox 88 95 Oxygen Delivery Method Nasal Cannula Nasal Cannula Nasal Cannula Oxygen Flow Rate (L/min) 4 5 5 Fraction of Inspired Oxygen (FIO2) 08/21/24 10:52 08/21/24 11:31 08/21/24 12:00 Temperature 97.5 F L 97.5 F L Temperature Source Temporal Temporal Pulse Rate 64 69 Respiratory Rate 22 H 20 H Respiratory Effort Respiratory Depth Respiratory Pattern Blood Pressure 134/70 H 134/70 H Blood Pressure Mean 91 91 Pulse Ox 97 100 Oxygen Delivery Method Nasal Cannula Bi-pap Bi-pap Oxygen Flow Rate (L/min) 5 Fraction of Inspired Oxygen (FIO2) 92 08/21/24 12:00 08/21/24 12:13 Temperature 98.5 F Temperature Source Pulse Rate 67 64 Respiratory Rate 20 H 20 H Respiratory Effort Respiratory Depth Respiratory Pattern Normal Blood Pressure 127/62 H Blood Pressure Mean 83 Pulse Ox 95 95 Oxygen Delivery Method Oxygen Flow Rate (L/min) Fraction of Inspired Oxygen (FIO2) 40 Weight Weight: 225 lb 4.999 oz Body Mass Index (BMI) 31.4 Physical Exam Narrative General: Alert, Oriented x3, Cooperative. Obesity, grade 1 BMI 31.4 kg/m? HEENT: Atraumatic, PERRLA, EOMI, Normocephalic. Oral: On BiPAP Neck: Supple, Negative Carotid Bruits. JVD could not be evaluated because of being on BiPAP Chest wall/Lungs: Air entry severely diminished in both lung luu. Bilateralexpiratory rhonchi. Cardiovascular: Regular rate and rhythm, Normal S1,S2, No M/G/R Abdomen: Bowel Sounds Present, Soft, Non Tender, Non-Distended : No dysuria. No renal angle tenderness. No suprapubic tenderness. Extremities: Bilateral 3+ thigh-high pitting edema, Capillary Refill Less than 3Seconds Skin: No rashes, No breakdown Musculoskeletal: No Tenderness to Palpation of Joints or Extremities. ROM restricted at knees and hip joints Neurological: Cranial nerves II-XII grossly intact, DTR 2+/4. No acute focal neurological deficit. Psych/Mental Status: Normal Affect, Appropriate. Results Lab / Micro Data 08/21/24 10:45 08/21/24 10:45 Labs: Laboratory Results - last 24 hr 08/21/24 10:45: WBC 10.3, RBC 2.83 L, Hgb 8.7 L, Hct 28.8 L, MCV 101.8 H, MCH 30.7, MCHC 30.2 L, RDW Std Deviation 68.8 H, RDW Coeff of Rafael 18.4 H, Plt Count 226, MPV 11.3, Immature Gran % (Auto) 1.100 H, Neut % (Auto) 71.0 H, Lymph % (Auto) 15.2 L, [place] % (Auto) 10.5 H, Eos % (Auto) 1.9, Baso % (Auto) 0.3, Absolute Neuts (auto) 7.3, Absolute Lymphs (auto) 1.57, Nucleated RBC % 0.4, Platelet Estimate A, Polychromasia 1+, Anisocytosis 1+, PT 14.1, INR 1.1, APTT 25.6, Sodium 145, Potassium 4.5, Chloride 105, Carbon Dioxide 29.3, Anion Gap 11, BUN 21 H, Creatinine 1.27 H, Estim Creat Clear Calc 62.12, Est GFR (MDRD) Non-Af 59 L, BUN/Creatinine Ratio 16.6, Glucose 150 H, Lactic Acid 1.3, Calcium 8.2, Total Bilirubin 0.49, AST 29, ALT 19, Alkaline Phosphatase 71, Troponin T High Sens 97 H*, [place] [address] H, Total Protein 6.2, Albumin 3.5, Globulin2.7, Albumin/Globulin Ratio 1.3 08/21/24 11:28: Urine Color Cancelled, Urine Clarity Cancelled, Urine pH Cancelled, Ur Specific [place] Cancelled, U Specif Grav (Refrac) Cancelled, Urine Protein Cancelled, Urine Glucose (UA) Cancelled, Urine Ketones Cancelled, Urine Occult Blood Cancelled, Urine Nitrite Cancelled, Urine Bilirubin Cancelled, Urine Urobilinogen Cancelled, Ur Leukocyte Esterase Cancelled, Urine RBC Cancelled, Urine WBC Cancelled, Ur Squamous Epith Cells Cancelled, Ur Transition Epith Cell Cancelled, Ur Renal Epithelial Cell Cancelled, Calcium Oxalate Crystal Cancelled, Uric Acid Crystals Cancelled, Triple Phos Crystals Cancelled, Other Crystals Cancelled, Amorphous Sediment Cancelled, Urine Bacteria Cancelled, Hyaline Casts Cancelled, Fine Granular Casts Cancelled, Coarse Granular Casts Cancelled, Waxy Casts Cancelled, RBC Casts Cancelled, WBC Casts Cancelled, Urine Mucus Cancelled, Urine Trichomonas Cancelled, Urine YeastCancelled ABG Data ABG results: ABG 08/21/24 12:15 Specimen Type ART Sample Site L Radial pH 7.45 Bicarbonate Actual 39.9 H Total CO2 42 Base Excess 16 H O2 Saturation 94 L O2 % 40.0 ABG pCO2 58.0 H ABG pO2 69 L Thompson Test Positive Respiration Rate 14 O2 Delivery Device BiPAP Vent Mode Not entered POC PEEP 9 Imaging Radiology Impression Chest X-Ray 08/21/24 11:02 IMPRESSION: Worsened moderate right pleural effusion. Trace left base effusion. Superimposed focal consolidation not excluded within the right lower lobe. Ncjb-ce-[id number] pulmonary edema. Median sternotomy wires. Cardiac silhouette is unchanged. No pneumothorax. Reading Location: [facility] Assessment & Plan Assessment/Plan (1) Acute and chronic respiratory failure with hypercapnia: PLAN: Plan This is a 73-year-old gentleman being admitted for extreme shortness of breath/labored breathing and hypoxia and ABG suggestive of acute on chronic combined respiratory failure 1. Acute on chronic combined hypoxic and hypercarbic respiratory failure due toCHF exacerbation and mild COPD exacerbation: ABG 7.45//69 on 40% FiO2, 15/9, RR 14/min. Patient is on bicarb is about 29-30 therefore chronic mild CO2 retention. Continue BiPAP support. [employer] consulted. 2. Acute on chronic HFrEF: proBNP is high 11,267, chest x-ray is reviewed and shows pulmonary congestion/central hilar congestion but no significant consolidation. Started on IV Bumex 2 mg every 8 hourly and titrate the dose as per urine output and hemodynamics. Heart failure core measures including intakeand output, fluid restriction less than 1500 mL, daily weight monitoring, kidneyand electrolytes monitoring. Previous echo on September 04, 2023 with EF 25%, mildlydilated LV, severe global hypokinesis, PASP 30 mmHg. 3. Mild COPD exacerbation with history of chronic smoking: Patient quit smokingabout 2 months ago in June 2024. 55 pack years of smoking. Patient is being managed on scheduled bronchodilator, IV Solu-Medrol, Mucinex, incentive spirometry and Pep. Zithromax 500 mg IV 1 dose and then changed to oral for next 2 doses, total 3 doses for COPD exacerbation. Flu, COVID and RSV PCR ordered. Sputum culture ordered. 4. DM type II: Glucose is 150 mg/dL. A1c tomorrow a.m. On Lantus 20 units subcutaneous twice daily continue with hypoglycemia protocol. Accu-Chek before meals and at bedtime with Humalog sliding scale coverage and hypoglycemia protocol. 5. CKD stage IIIa: BUN/creatinine appears on the baseline 21/1.27. Previous./Creatinine 33/1.27 on June 2024 and fluctuates between 1.41-1.65. 6. 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 Bilateral leg swelling. Started on Lovenox 40 mL subcu daily with holding parameters given the patient has history of GI bleed found to have AVM on endoscopy. 7. History of GI bleed due to AVM and chronic GERD: Last EGD in March 2024 as mentioned below. Continue PPI twice daily. Impression: - Normal esophagus. - No gross lesions in the entire stomach. - Three bleeding angiodysplastic lesions in the duodenum. Treated with a heater probe. Clip was placed. 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 8. Chronic CAD status post stent: Continue home medications 9. Chronic BPH with obstruction -Continue home medications Flomax and finasteride 10. Depression/anxiety -Continue home medications 11. DVT prophylaxis: As mentioned above. With high risk of DVT/PE and high risk of bleeding, Lovenox continued with PPI with holding parameters if bleeding. Living will/advanced directive/end of life care: Patient does have living will or advanced directive. His power of penetration tester for healthcare his but also with son and granddaughter involved in decision making. After discussion of benefits/risks procedures involved with full code, DNR CC arrest and DNR CC, the patient opted for DNR CC arrest with no intubation Patient doesn't want artificial life support including intubation, tube feed, ventilator and/chest compression, central venous catheter, vasopressor and DC shock if needed Total time spent in [id number] encounter in discussion of advanced directive 17 minutes. Laboratory Results 08/21/24 10:45: WBC 10.3, RBC 2.83 L, Hgb 8.7 L, Hct 28.8 L, MCV 101.8 H, MCH 30.7, MCHC 30.2 L, RDW Std Deviation 68.8 H, RDW Coeff of Rafael 18.4 H, Plt Count 226, MPV 11.3, Immature Gran % (Auto) 1.100 H, Neut % (Auto) 71.0 H, Lymph % (Auto) 15.2 L, [place] % (Auto) 10.5 H, Eos % (Auto) 1.9, Baso % (Auto) 0.3, Absolute Neuts (auto) 7.3, Absolute Lymphs (auto) 1.57, Nucleated RBC % 0.4, Platelet Estimate A, Polychromasia 1+, Anisocytosis 1+, PT 14.1, INR 1.1, APTT 25.6, Sodium 145, Potassium 4.5, Chloride 105, Carbon Dioxide 29.3, Anion Gap 11, BUN 21 H, Creatinine 1.27 H, Estim Creat Clear Calc 62.12, Est GFR (MDRD) Non-Af 59 L, BUN/Creatinine Ratio 16.6, Glucose 150 H, Lactic Acid 1.3, Calcium 8.2, Total Bilirubin 0.49, AST 29, ALT 19, Alkaline Phosphatase 71, Troponin T High Sens 97 H*, [place] [address] H, Total Protein 6.2, Albumin 3.5, Globulin2.7, Albumin/Globulin Ratio 1.3 08/21/24 12:15: Specimen Type ART, Sample Site L Radial, pH 7.45, Bicarbonate Actual 39.9 H, Total CO2 42, Base Excess 16 H, O2 Saturation 94 L, O2 % 40.0, ABG pCO2 58.0 H, ABG pO2 69 L, Thompson Test Positive, Respiration Rate 14, O2 Delivery Device BiPAP, Vent Mode Not entered, POC PEEP 9 Clinical Impression(s) from Imaging Studies Chest X-Ray 08/21/24 11:02 IMPRESSION: Worsened moderate right pleural effusion. Trace left base effusion. Superimposed focal consolidation not excluded within the right lower lobe. Fupo-uw-qaswfvch pulmonary edema. Median sternotomy wires. Cardiac silhouette is unchanged. No pneumothorax. Reading Location: [facility] Charges/Coding Visit Charges Inpatient E&M: 41245 Init Hosp L3 Procedures Hospitalists Procedures: 33677 Advncd Care Plan 30 Min 08/21/24 1254 <Electronically signed by Clive Sharp MD> Cosigner Signature (if applicable): CC: Dr. Dnona Will MD; Dr. Clive Sharp MD~ Signed ADDENDUM by Dr. Clive Sharp MD on 08/21/24 at 1258 Addendum I talked to the patient's son, Mr. Ray Alonzo and informed about his diagnosis of respiratory failure and admission in ICU. He agrees that he is DNR CC arrestwith no intubation similar to previous hospitalization. 08/21/24 1258<Electronically signed by Clive Sharp MD> Cosigner Signature (if applicable): cc: Dr. Donna Will MD; Dr. Clive Sharp MD ~* Signed [facility] Work Phone: [phone]) 135-649006-28-2025 Discharge summary Author Terry Singh [facility] Note Date/Time August 21, 2024 12:2 8pm [facility] Medical Records Department [address] [place] [address] Emergency Department Summary 08/21/24 MR#: [id number] Acct: [id number] Name: SAL ALONZO JrJuan Rep #:[id number] : 1950 73 From: Terry Singh DO PCP: Dr. Donna Will MD Status:ADM IN Location: ICU ICU08-[address] Terry Singh DO on 08/21/24 at 1228 ABG reviewed which showed a pH 7.45 with [id number] patient is likely chronically hypercapnic according to this arterial blood gas. Critical care time 36 minutes. 08/21/24 1228<Electronically signed by Terry Singh DO> Cosigner Signature (if applicable): cc: Dr. Donna Will MD ~* Signed HPI History of Present Illness Chief Complaint: Shortness of Breath Narrative Narrative: Patient is a 73-year-old male past medical history of chronic kidney disease stage III, acute on chronic hypoxic respiratory failure chronically on 4 L nasalcannula, hypertension, PE according the record history of filter in place, CHF who presented to the emergency department chief complaint of shortness of breath. Patient states that this morning when he woke up he tried to get up outof bed and walked very short distance and was severely short of breath thereforehe called EMS to have him brought here for further evaluation management. Patient does note that he had some difficulty sleeping last night as he could not sit high enough in bed in order to provide relief to help him breathe. He states that he is chronically on oral steroids and he states that when he gets sick he is told that he should increase his dose of steroids. He states that hedoes not know why he is on chronic steroids. Per EMS he had significant increased work of breathing therefore they gave him 2 DuoNebs and route. They noted that he was 90% on his 4 L nasal cannula. [facility] Medical History MRSA (methicillin resistant staph aureus) [...] cell carcinoma Atherosclerosis of coronary artery of crow heart without angina pectoris Pneumonia Non-Hodgkin lymphoma [...] 1 tab PO DAILY vitamin 09/1307/07/24 History atorvastatin 40 mg tablet 20 mg (1/2 [...] #100 ea 12/03/23 Unkno wn Rx 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 sensor (FreeStyle #1 ea 12/24/23 Unknown Rx Basilio 3 Sensor device) 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,sales support coordinator,cont #1 ea 12/24/23 Unknown Rx (FreeStyle Basilio 3 [place]) furosemide 40 mg tablet (Lasix) 20 mg (1/2 x 40 mg) PO DAILY 03/08/24 07/07/24 Rx diuretic #60 tabs empagliflozin 10 mg tablet 10 mg PO QDAY diabetes 02/2507/07/24 History (Jardiance) ferrous sulfate 325 mg (65 mg 325 mg PO QODAY Suppleme nt 04/05/24 07/07/24 History iron) tablet (FeroSul) insulin glargine-yfgn 100 unit/mL 20 unit (0.2 mL) sub cut BIDCM high 06/25/24 07/08/24 Rx (3 mL) subcutaneous pen blood glucose #15 mL cholecalciferol (vitamin D3) 50 50 mcg PO QDAY 5 07/07/24 History mcg (2,000 unit) capsule pantoprazole 40 mg tablet,delayed 40 mg PO BID 5 07/07/24 History release (Protonix) carvedilol 3.125 mg tablet 3.125 mg PO BID BP #60 tabs 07/26/24 Unknown Rx Allergy/AdvReac Type Severity Reaction Status Date / Time No Known Allergies Allergy Verified 08/21/24 10:26 Family History Father Arthritis Bleeding disorder Hypertension [...] always ROS ROS ED ROS Narrative Constitutional: Denies any fevers, chills, headaches Eyes: Denies change in vision double vision blurry vision Cardiovascular: Denies chest pain Respiratory: Complains of cough and shortness of breath as noted above Abdomen: Denies abdominal pain nausea vomit diarrhea : Denies urinary symptoms Neurological: Denies any numbness, weakness, tingling Musculoskeletal: Denies back pain Skin: Denies rashes or lesions EXAM Physical Exam Narrative Exam Narrative: General: Patient was lying in bed rest comfortably did not appear to be acute distress Head: Atraumatic, normocephalic Eyes: PERRL bilaterally, EOMI about a, no conjunctival injection noted Neck: Soft, supple, trachea midline Cardiovascular: Regular rate and rhythm no murmurs gallops rubs noted Respiratory: Diminished breath sounds at the right lung base no wheezing noted diffusely Abdomen: Soft, nondistended, nontender to palpation Extremities: Patient does have 1+ pitting edema noted in the bilateral lower extremities, radial pulses +2/4 in the bilateral extremities Neurological: Patient following commands knew that he was at [facility] the year is 2024 Skin: Warm, dry, patient has diffuse flaky scaly skin on the his back noted no rashes no lesions noted Const Vital Signs: 08/21/24 10:26 08/21/24 10:51 08/21/24 10:52 Temperature 98.2 F Temperature Source Temporal Pulse Rate 81 Respiratory Rate 30 H Respiratory Effort Short of Breath Respiratory Depth Shallow Respiratory Pattern Tachypnea Blood Pressure 122/59 H Blood Pressure Mean 80 Pulse Ox 88 95 Oxygen Delivery Method Nasal Cannula Nasal Cannula Nasal Cannula Oxygen Flow Rate (L/min) 4 5 5 Fraction of Inspired Oxygen (FIO2) 08/21/24 10:52 Temperature Temperature Source Pulse Rate Respiratory Rate Respiratory Effort Respiratory Depth Respiratory Pattern Blood Pressure Blood Pressure Mean Pulse Ox Oxygen Delivery Method Nasal Cannula Oxygen Flow Rate (L/min) 5 Fraction of Inspired Oxygen (FIO2) 92 MDM MDM MDM Narrative Medical decision making narrative: Patient is a 73-year-old male who presented to the emergency department chief complaint of dyspnea on exertion. On the differential diagnose includes but notlimited to CHF exacerbation, pneumonia, pneumothorax, ACS, PE although feel thisless likely as he has IVC filter in place since 2021. Patient will not be given30 cc/kg bolus of IV fluid secondary to concern for CHF exacerbation. Patient be given 125 mg of Solu-Medrol he already received 2 DuoNeb's and route. Patient CBC reviewed showed no evidence leukocytosis white blood count normal at10.3, hemoglobin stable at 8.7, patient does have macrocytic anemia with MCV of 101.8. Patient INR normal at 1.1, PT of 14.1. Patient sodium normal 145, potassium normal at 4.5, creatinine was at his baseline at 1.27 does have underlying chronic kidney disease coronary previous blood draws. Patient lacticacid normal at 1.3, AST and ALT were 29 and 19 respectively. Patient's troponinwas 97 EKG was reviewed as well which showed sinus rhythm with a rate of 82 bpm this was compared to previous EKG from July 08, 2024 which at that point time showed atrial fibrillation for which she does have a history of this as well. Patient's proBNP elevated to 11,167. Patient's chest x-ray reviewed by myself which shows show concerning for vascular congestion when compared to previous chest x-ray on 07/08 with evidence of likely large pleural effusion on the right side. Patient will be placed on BiPAP for CHF exacerbation as well aswe given a milligram of Bumex. Patient's echocardiogram from 06/22/2024 reviewedshowed ejection fraction 25% with evidence of diastolic dysfunction noted. At this point time will discuss case with hospitalist for admission. Discussed case with hospitalist Dr. Sharp who accept the patient for admission. He will place the patient in the intensive care unit he was requesting ABG be ordered which was ordered. Patient was notified is agreeable to plan all question concerns answered. Lab Data Labs: Laboratory Results - last 24 hr 08/21/24 08/21/24 10:45 11:28 WBC 10.3 RBC 2.83 L Hgb 8.7 L Hct 28.8 L MCV 101.8 H MCH 30.7 MCHC 30.2 L RDW Std Deviation 68.8 H RDW Coeff of Rafael 18.4 H Plt Count 226 MPV 11.3 Immature Gran % (Auto) 1.100 H Neut % (Auto) 71.0 H Lymph % (Auto) 15.2 L [place] % (Auto) 10.5 H Eos % (Auto) 1.9 Baso % (Auto) 0.3 Absolute Neuts (auto) 7.3 Absolute Lymphs (auto) 1.57 Nucleated RBC % 0.4 PT 14.1 INR 1.1 APTT 25.6 Sodium 145 Potassium 4.5 Chloride 105 Carbon Dioxide 29.3 Anion Gap 11 BUN 21 H Creatinine 1.27 H Estim Creat Clear Calc 62.12 Est GFR (MDRD) Non-Af 59 L BUN/Creatinine Ratio 16.6 Glucose 150 H Lactic Acid 1.3 Calcium 8.2 Total Bilirubin 0.49 AST 29 ALT 19 Alkaline Phosphatase 71 Troponin T High Sens 97 H* [place] [address] H Total Protein 6.2 Albumin 3.5 Globulin 2.7 Albumin/Globulin Ratio 1.3 Urine Color Cancelled Urine Clarity Cancelled Urine pH Cancelled Ur Specific [place] Cancelled U Specif Grav (Refrac) Cancelled Urine Protein Cancelled Urine Glucose (UA) Cancelled Urine Ketones Cancelled Urine Occult Blood Cancelled Urine Nitrite Cancelled Urine Bilirubin Cancelled Urine Urobilinogen Cancelled Ur Leukocyte Esterase Cancelled Urine RBC Cancelled Urine WBC Cancelled Ur Squamous Epith Cells Cancelled Ur Transition Epith Cell Cancelled Ur Renal Epithelial Cell Cancelled Calcium Oxalate Crystal Cancelled Uric Acid Crystals Cancelled Triple Phos Crystals Cancelled Other Crystals Cancelled Amorphous Sediment Cancelled Urine Bacteria Cancelled Hyaline Casts Cancelled Fine Granular Casts Cancelled Coarse Granular Casts Cancelled Waxy Casts Cancelled RBC Casts Cancelled WBC Casts Cancelled Urine Mucus Cancelled Urine Trichomonas Cancelled Urine Yeast Cancelled Discharge Plan Triage Chief Complaint: Shortness of Breath ED Provider: Terry Singh Dx/Rx/DC Orders Clinical Impression: CHF exacerbation, Acute on chronic hypoxic respiratory failure, Chronic kidney disease (CKD), Dyspnea on exertion, Anemia, macrocytic, Type 2 MT (myocardial infarction) Prescriptions: No Action multivitamin Tablet 1 tab PO [...] (DME) pen needle, diabetic 32 gauge x needle See Rx Instructions .ROUTE .MEDSUPPLY Qty: [...] infected, or steroid patients MEDIUM DOSING ALGORITHIM insulin glargine-yfgn 100 unit/mL (3 mL) insulin pen 20 unit subcut BIDCM Qty: 15 1RF atorvastatin 40 mg tablet 20 mg PO QHS Qty: 90 3RF escitalopram oxalate 10 mg tablet 10 mg PO DAILY 90 Days Qty: 90 3RF mirtazapine [Remeron] 15 mg tablet 7.5 mg PO QHS Qty: 90 3RF (DME) FreeStyle Basilio 3 Sensor Device See Rx Instructions .Route Qty: 1 5RF Rx Instructions: As directed (DME) FreeStyle Basilio 3 [place] Misc See Rx Instructions .Route Qty: 1 0RF Rx Instructions: As directed furosemide [Lasix] 40 mg tablet 20 mg PO DAILY Qty: 60 1RF pantoprazole [Protonix] 40 mg tablet,delayed release (DR/EC) 40 mg PO BID cholecalciferol (vitamin D3) 50 mcg (2,000 unit) capsule 50 mcg PO QDAY carvedilol 3.125 mg tablet 3.125 mg PO BID Qty: 60 11RF Rx Instructions: must administer with a meal/food Primary Care Provider: Donna Will Referrals: Donna Will MD [Primary Care Provider] - Print Language: Croatian Disposition Disposition: Acute Care Hospital [facility] What to do if you have Problems For any increased pain, shortness of breath, bleeding, nausea or vomiting, chestpain, or any unexpected problems, contact your Primary Care Provider. Call [facility] ([phone]) or report to the closest Emergency Room. Call 911 if necessary. 08/21/24 1202 <Electronically signed by Terry Singh DO> Cosigner Signature (if applicable): CC: Dr. Donna Will MD ~ [facility]igned [facility] Work Phone: 1(624) 885-151806-28-2025 Evaluation note* Diagnosis Onset Date Resolution Status Admit Date Anemia, macrocytic acute July 262024 12:12pm Dyspnea on exertion acute August 21, 2024 12:12pm Acute and chronic respiratory failure with hypercapnia chronic August 21, 2024 12:12pm CHF exacerbation chronic July 12:12pm Chronic kidney disease (CKD) chronic August 21, 2024 12:12pm Type 2 MT (myocardial infarction) inactive August 21, 2024 12:12pm Acute on chronic hypoxic respiratory failure deleted August 21 12:12pm Iron deficiency anemia chronic 2024 8:50am 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 September 13, 2024 8:50am Chronic iron deficiency anemia acute September 16, 2024 10:00am HFrEF (heart failure with reduced ejection fraction) acute September 16, 2024 10:00am Pleural effusion on right acute September 16, 2024 10:00am Acute and chronic respiratory failure with hypercapnia chronic September 16, 2024 10:00am CHF exacerbation chronic August 10:00am Essential hypertension chronic Ju ly 2024 10:00am History of COPD chronic August 10:00am Type 2 diabetes mellitus chronic September 16, 2024 10:00am Bronchiectasis acute September 10:12am Daytime hypersomnia acute 2024 10:12am Chronic hypoxemic respiratory failure chronic September 24, 2024 10:12am COPD (chronic obstructive pulmonary disease) chronic September 24 025 10:12am Nicotine dependence, cigarettes, in remission chronic September 24, 2024 10:12am HFrEF (heart failure with reduced ejection fraction) acute t 2024 8:25am Chronic kidney disease (CKD) chronic October 08 8:25am Essential hypertension chronic Au abimbola 2024 8:25am History of coronary artery stent placement October 22, 2013 chronic October 08, 2 025 8:25am Hyperlipidemia chronic September 8:25am Iron deficiency anemia chronic Au abimbola 2024 8:25am HFrEF (heart failure with reduced ejection fraction) acute Octob er 2024 8:32am Acute and chronic respiratory failure with hypercapnia chronic December 06 8:32am Chronic kidney disease (CKD) chronic December 06 8:32am COPD (chronic obstructive pulmonary disease) chronic December 06, 2024 8:32am Essential hypertension chronic Oc tober 2024 8:32am Hyperlipidemia chronic December 062024 8:32am Iron deficiency anemia chronic Oc tober 2024 8:32am Type 2 diabetes mellitus chronic December 06, 2024 8:32am Guaiac positive stools acute Oc tober 2024 9:20am Iron deficiency anemia chronic Oc tober 2024 9:20am [facility] Work Phone: 1(216) 121-550806-28-2025 Radiology Diagnostic study [facility]05-27-2025 Progress note Author Toib Zapata [facility] Note Date/Time July 20, 2024 3:19p m [facility] [address] [address] OFFICE VISIT Date of Service: 07/20/24 1447 MR#: [id number] Acct: [id number] Name: SAL ALONZO Jr. Rep #: [id number] : 1950 From: Tobi Zapata MD Age/Sex: 73/M [place] [facility] Status: Signed HPI Subjective Date of Service [...] cell carcinoma Atherosclerosis of coronary artery of crow heart without angina pectoris Pneumonia Non-Hodgkin lymphoma [...] U-100 100 unit/mL See Protocol subcut A [facility] high 11/12/23 07/20/24 Rx (3 mL) subcutaneous pen blood glucose 1 month #15 mL needle (disp) 32 gauge 32 gauge x #100 ea 11/12/23 Rx 5/16 (Easy Touch Hypodermic Needle) pen needle, diabetic 32 gauge x #100 ea 12/03/2307/20 Rx 5/32 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 sensor (FreeStyle #1 ea 12/24/23 5 Rx Basilio 3 Sensor device) 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,sales support coordinator,cont #1 ea 12/24/23 07/20/24 Rx (FreeStyle Basilio 3 [place]) furosemide 40 mg tablet (Lasix) 20 mg (1/2 x 40 mg) PO DAILY 03/08/24 07/20/24 Rx diuretic #60 tabs empagliflozin 10 mg tablet 10 mg PO QDAY diabetes 02/2507/20/24 History (Jardiance) ferrous sulfate 325 mg (65 mg 325 mg PO QODAY Suppleme nt 04/05/24 07/20/24 History iron) tablet (FeroSul) vancomycin 500 mg/100 mL in 500 mg IV Q12H 26 days #5, 200 mL 06/24/24 07/20/24 Rx dextrose 5 % intravenous piggyback insulin glargine-yfgn 100 unit/mL 20 unit (0.2 mL) sub cut BID high 06/25/24 07/20/24 Rx (3 mL) subcutaneous [...] Tobi Panchal> Date _ Tobi Zapata MD Cosign Signature: Date (if applicable) CC: Dr. Donna Will MD ~ [facility] [employer] Work Phone: 1(110) 829-693005-15-2025 Radiology Diagnostic study [facility]05-15-2025 Discharge summary Author Marco Hoffman [facility] Note Date/Time July 08, 2024 5:10p m [facility] Medical Records Department [address] [place] [address] Emergency Department Summary 07/08/24 MR#: [id number] Acct: [id number] Name: SAL ALONZO Jr. Rep #:[id number] : 1950 73 From: Marco Lilly PCP: [...] states his weakness is worse with ambulation. [facility] Medical History MRSA (methicillin resistant staph aureus) [...] cell carcinoma Atherosclerosis of coronary artery of crow heart without angina pectoris Pneumonia Non-Hodgkin lymphoma [...] x #100 ea 11/12/23 Unk nown Rx /16 (Easy Touch Hypodermic Needle) pen needle, diabetic 32 gauge x #100 ea 12/03/23 Unkno wn Rx 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 meter,continuous #1 ea 12/24/23 Unknown Rx (FreeStyle Basilio 3 [place]) 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 sensor (FreeStyle #1 ea 12/24/23 Unknown [...] 71.7 H Lymph % (Auto) 15.2 L [place] % (Auto) 9.4 Eos % (Auto) 2.0 [...] Sl. Cloudy Urine pH 6.0 Ur Specific [place] 1.015 Urine Protein 30 H Urine Glucose [...] as compared to prior study. Reading Location: [facility] PA and lateral chest x-ray was [...] a normal sinus rhythm with frequent PACs. ND interval was approximately 160 ms. QRS interval was normal at 102 ms. QTc interval was 444 ms. Red Level was normal. There are nonspecific ST-T wave [...] bmp, cbc, and vanc trough. Fax to [phone]. Routine picc care per protocol. insulin glargine-yfgn [...] Instructions: As directed (DME) FreeStyle Basilio 3 [place] Misc See Rx Instructions .Route Qty: 1 [...] Active Staff] - 5-7 Days Print Language: Croatian Disposition Disposition: Home, Self Care What to do if you have Problems For any increased pain, shortness of breath, bleeding, nausea or vomiting, chestpain, or any unexpected problems, contact your Primary Care Provider. Call [facility] ([phone]) or report to the closest Emergency Room. Call 911 if necessary. 07/08/24 1710 <Electronically signed by Marco Hoffman DO> Cosigner Signature (if applicable): CC: Dr. 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 June 252024 1:32pm Anemia, macrocytic acute July 262024 12:12pm Dyspnea on exertion acute August 21, 2024 12:12pm Acute and chronic respirator y failure with hypercapnia chronic August 212024 12:12pm CHF exacerbation chronic July 12:12pm Chronic kidney disease (CKD) chronic August 21, 2024 12:12pm Type 2 MT (myocardial infarction) inactive August 21, 2024 12:12pm Acute on chronic hypoxic respiratory failure deleted August 21, 025 12:12pm Iron deficiency anemia chronic Ju ly 2024 8:50am 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 September 13, 2024 8:50am [facility] Work Phone: 1(358) 942-198104-27-2025 Evaluation note* Diagnosis Onset Date Resolution Status Admit Date MRSA bacteremia acute May 6:06pm Acute alteration in mental status resolved June 20, 2024 6:06pm Acute and chronic respirator y failure with hypoxia resolved June 20, 2024 6:06pm Sepsis resolved June 20 6:06pm Claudication, intermittent removed June 20, 2024 6:06pm PAD (peripheral artery disease) [place] June 20, 2024 6:06pm Iron deficiency anemia chronic Ma 2024 1:32pm 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 June 252024 1:32pm Anemia, macrocytic acute July 262024 12:12pm Dyspnea on exertion acute August 21, 2024 12:12pm Acute and chronic respirator y failure with hypercapnia chronic August 212024 12:12pm CHF exacerbation chronic July 12:12pm Chronic kidney disease (CKD) chronic August 21, 2024 12:12pm Type 2 MT (myocardial infarction) inactive August 21, 2024 12:12pm Acute on chronic hypoxic respiratory failure deleted August 21, 2 025 12:12pm Iron deficiency anemia chronic Ju ly 2024 8:50am 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 September 13, 2024 8:50am Chronic iron deficiency anemia acute September 16, 2024 10:00am HFrEF (heart failure with reduced ejection fraction) acute September 16, 2024 10:00am Pleural effusion on right acute September 16, 2024 10:00am Acute and chronic respirator y failure with hypercapnia chronic September 162024 10:00am CHF exacerbation chronic August 10:00am Essential hypertension chronic Ju ly 2024 10:00am History of COPD chronic August 10:00am Type 2 diabetes mellitus chronic September 16, 2024 10:00am [facility] Work Phone: 1(188) 707-317604-27-2025 Evaluation note* Diagnosis Onset Date Resolution Status Admit Date MRSA bacteremia acute May 6:06pm Acute alteration in mental status resolved June 20, 2024 6:06pm Acute and chronic respirator y failure with hypoxia resolved June 20, 2024 6:06pm Sepsis resolved June 20 6:06pm Claudication, intermittent removed June 20, 2024 6:06pm PAD (peripheral artery disease) [place] June 20, 2024 6:06pm Iron deficiency anemia chronic Ma 2024 1:32pm 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 June 252024 1:32pm Anemia, macrocytic acute July 262024 12:12pm Dyspnea on exertion acute August 21, 2024 12:12pm Acute and chronic respirator y failure with hypercapnia chronic August 212024 12:12pm CHF exacerbation chronic July 12:12pm Chronic kidney disease (CKD) chronic August 21, 2024 12:12pm Type 2 MT (myocardial infarction) inactive August 21, 2024 12:12pm Acute on chronic hypoxic respiratory failure deleted August 21, 12:12pm Iron deficiency anemia chronic Ju ly 2024 8:50am 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 September 13, 2024 8:50am Chronic iron deficiency anemia acute September 16, 2024 10:00am HFrEF (heart failure with reduced ejection fraction) acute September 16, 2024 10:00am Pleural effusion on right acute September 16, 2024 10:00am Acute and chronic respirator y failure with hypercapnia chronic September 162024 10:00am CHF exacerbation chronic August 10:00am Essential hypertension chronic Ju ly 2024 10:00am History of COPD chronic August 10:00am Type 2 diabetes mellitus chronic September 16, 2024 10:00am Bronchiectasis acute September 10:12am Daytime hypersomnia acute Aug2024 10:12am Chronic hypoxemic respirator y failure chronic September 24, 2024 10:12am COPD (chronic obstructive pulmonary disease) chronic September 24 10:12am Nicotine dependence, cigarettes, in remission chronic September 24, 2024 10:12am [facility] Work Phone: 1(680) 594-400304-27-2025 Evaluation note* Diagnosis Onset Date Resolution Status Admit Date MRSA bacteremia acute May 6:06pm Acute alteration in mental status resolved June 20, 2024 6:06pm Acute and chronic respirator y failure with hypoxia resolved June 20, 2024 6:06pm Sepsis resolved June 20 6:06pm Claudication, intermittent removed June 20, 2024 6:06pm PAD (peripheral artery disease) [place] June 20, 2024 6:06pm Iron deficiency anemia chronic Ma 2024 1:32pm 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 June 252024 1:32pm Anemia, macrocytic acute July 262024 12:12pm Dyspnea on exertion acute August 21, 2024 12:12pm Acute and chronic respirator y failure with hypercapnia chronic August 212024 12:12pm CHF exacerbation chronic July 12:12pm Chronic kidney disease (CKD) chronic August 21, 2024 12:12pm Type 2 MT (myocardial infarction) inactive August 21, 2024 12:12pm Acute on chronic hypoxic respiratory failure deleted August 21, 12:12pm Iron deficiency anemia chronic 2024 8:50am 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 September 13, 2024 8:50am Chronic iron deficiency anemia acute September 16, 2024 10:00am HFrEF (heart failure with reduced ejection fraction) acute September 16, 2024 10:00am Pleural effusion on right acute September 16, 2024 10:00am Acute and chronic respirator y failure with hypercapnia chronic September 162024 10:00am CHF exacerbation chronic August 10:00am Essential hypertension chronic ly 2024 10:00am History of COPD chronic August 10:00am Type 2 diabetes mellitus chronic September 16, 2024 10:00am Bronchiectasis acute September 10:12am Daytime hypersomnia acute Augus t 2024 10:12am Chronic hypoxemic respirator y failure chronic September 24, 2024 10:12am COPD (chronic obstructive pulmonary disease) chronic September 24 10:12am Nicotine dependence, cigarettes, in remission chronic September 24, 2024 10:12am Chronic kidney disease (CKD) chronic October 08, 2024 8:25am [facility] Work Phone: 1(425) 616-106304-27-2025 Evaluation note* Diagnosis Onset Date Resolution Status Admit Date MRSA bacteremia acute May 6:06pm Acute alteration in mental status resolved June 20, 2024 6:06pm Acute and chronic respiratory failure with hypoxia resolved June 20, 2024 6:06pm Sepsis resolved June 20 6:06pm Claudication, intermittent removed June 20, 2024 6:06pm PAD (peripheral artery disease) removed June 20, 2024 6:06pm Iron deficiency anemia chronic Ma 2024 1:32pm 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 June 252024 1:32pm Anemia, macrocytic acute July 262024 12:12pm Dyspnea on exertion acute August 21, 2024 12:12pm Acute and chronic respiratory failure with hypercapnia chronic August 21, 2024 12:12pm CHF exacerbation chronic July 12:12pm Chronic kidney disease (CKD) chronic August 21, 2024 12:12pm Type 2 MT (myocardial infarction) inactive August 21, 2024 12:12pm Acute on chronic hypoxic respiratory failure deleted August 21 025 12:12pm Iron deficiency anemia chronic ly 2024 8:50am 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 September 13, 2024 8:50am Chronic iron deficiency anemia acute September 16, 2024 10:00am HFrEF (heart failure with reduced ejection fraction) acute September 16, 2024 10:00am Pleural effusion on right acute September 16, 2024 10:00am Acute and chronic respiratory failure with hypercapnia chronic September 16, 2024 10:00am CHF exacerbation chronic August 10:00am Essential hypertension chronic ly 2024 10:00am History of COPD chronic August 10:00am Type 2 diabetes mellitus chronic September 16, 2024 10:00am Bronchiectasis acute September 10:12am Daytime hypersomnia acute 2024 10:12am Chronic hypoxemic respiratory failure chronic September 24, 2024 10:12am COPD (chronic obstructive pulmonary disease) chronic September 24 025 10:12am Nicotine dependence, cigarettes, in remission chronic September 24, 2024 10:12am HFrEF (heart failure with reduced ejection fraction) acute 2024 8:25am Chronic kidney disease (CKD) chronic October 08, 2024 8:25am Essential hypertension chronic [facility] 2024 8:25am History of coronary artery stent placement October 22, 2013 chronic October 08 8:25am Hyperlipidemia chronic September 8:25am Iron deficiency anemia chronic [facility] 2024 8:25am [facility] Work Phone: 1(191) 420-647103-25-2025 Evaluation note* Diagnosis Onset Date Resolution Status Admit Date Bronchiectasis acute April 2:14pm Chronic hypoxemic respirator y failure chronic May 18, 2024 2:14pm COPD (chronic obstructive pulmonary disease) chronic May 18 025 2:14pm Nicotine dependence, cigaret jennifer, in remission chronic May 18, 2024 2:14pm MRSA bacteremia acute May 6:06pm Acute alteration in mental status resolved June 20, 2024 6:06pm Acute and chronic respirator y failure with hypoxia resolved June 20, 2024 6:06pm Sepsis resolved June 20 6:06pm Claudication, intermittent removed June 20, 2024 6:06pm PAD (peripheral artery disease) [place] June 20, 2024 6:06pm Iron deficiency anemia chronic 2024 1:32pm 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 June 252024 1:32pm Anemia, macrocytic acute July 262024 12:12pm Dyspnea on exertion acute August 21, 2024 12:12pm CHF exacerbation chronic July 12:12pm Chronic kidney disease (CKD) chronic August 21, 2024 12:12pm Acute and chronic respirator y failure with hypercapnia inactive August 212024 12:12pm Type 2 MT (myocardial infarction) inactive August 21, 2024 12:12pm Acute on chronic hypoxic respiratory failure deleted August 21 12:12pm Iron deficiency anemia chronic Ju 2024 8:50am 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 September 13, 2024 8:50am [facility] Work Phone: 1(758) 774-805203-04-2025 Evaluation note* Diagnosis Onset Date Resolution Status Admit Date Iron deficiency anemia chronic Ma [facility] 2024 1:14pm 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 April 27, 2024 1:14pm Bronchiectasis acute April 2:14pm Chronic hypoxemic respirator y failure chronic May 18, 2024 2:14pm COPD (chronic obstructive pulmonary disease) chronic May 18 2:14pm Nicotine dependence, cigaret jennifer, in remission chronic May 18, 2024 2:14pm MRSA bacteremia acute May 6:06pm Acute alteration in mental status resolved June 20, 2024 6:06pm Acute and chronic respirator y failure with hypoxia resolved June 20, 2024 6:06pm Sepsis resolved June 20 6:06pm Claudication, intermittent removed June 20, 2024 6:06pm PAD (peripheral artery disease) [place] June 20, 2024 6:06pm Iron deficiency anemia chronic Ma 2024 1:32pm 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 June 252024 1:32pm Anemia, macrocytic acute July 262024 12:12pm Dyspnea on exertion acute August 21, 2024 12:12pm Type 2 MT (myocardial infarction) acute August 21, 2024 12:12pm Acute and chronic respirator y failure with hypercapnia chronic August 212024 12:12pm CHF exacerbation chronic July 12:12pm Chronic kidney disease (CKD) chronic August 21, 2024 12:12pm Acute on chronic hypoxic respiratory failure deleted August 21 12:12pm [facility] Work Phone: 1(860) 645-967302-10-2025 Evaluation note* Diagnosis Onset Date Resolution Status [...] hypoxemic respirator y failure chronic April 05 8:20pm COPD (chronic obstructive pulmonary disease) chronic March 8:20pm COPD with exacerbation chronic Fe 2024 8:20pm GI bleed April, chronic March 9:11am Iron deficiency anemia chronic Fe bruary 2024 9:11am Iron deficiency anemia chronic [facility] 2024 1:14pm Iron deficiency anemia refractory to [...] to iron therapy chronic June 252024 1:32pm [facility] Work Phone: 1(964) 466-569601-21-2025 Evaluation note* Diagnosis Onset Date Resolution Status Admit Date HFrEF (heart failure with reduced ejection fraction) acute 2024 11:35am Essential hypertension chronic Ja 2024 11:35am History of coronary artery stent placement October 22, 2013 chronic March 16, 2024 11:35am Hyperlipidemia chronic March 162024 11:35am Iron deficiency anemia chronic Ja nu2024 11:35am Acute anemia acute March 8:20pm Anemia acute April 05, 2024 8:20pm Atrial fibrillation, controlled acute April 05, 025 8:20pm Guaiac positive stools acute Fe 2024 8:20pm Hypoxia acute April 05, 2024 8:20pm Nausea & vomiting acute 2024 8:20pm Respiratory insufficiency acute April 05, 2024 8:20pm Right lower lobe pneumonia acute April 05, 2024 8:20pm Chronic hypoxemic respiratory failure chronic March 8:20pm COPD (chronic obstructive pulmonary disease) chronic March 8:20pm COPD with exacerbation chronic 2024 8:20pm GI bleed April, chronic March 9:11am Iron deficiency anemia chronic [facility] 2024 9:11am Iron deficiency anemia chronic [facility] 2024 1:14pm 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 April 27, 2024 1:14pm Bronchiectasis acute April 2:14pm Chronic hypoxemic respiratory failure chronic May 18, 2024 2:14pm COPD (chronic obstructive pulmonary disease) chronic May 18 025 2:14pm Nicotine dependence, cigarettes, in remission chronic April 252024 2:14pm MRSA bacteremia acute May 6:06pm Acute alteration in mental status resolved June 20, 2024 6:06pm Acute and chronic respiratory failure with hypoxia resolved June 20, 2024 6:06pm Sepsis resolved June 20 6:06pm Claudication, intermittent removed June 20, 2024 6:06pm PAD (peripheral artery disease) removed June 20, 2024 6:06pm [facility] Work Phone: 1(197) 502-361601-10-2025 Evaluation note* Diagnosis Onset Date Resolution Status [...] 05, 2024 8:20pm Nausea & vomiting acute 2024 8:20pm Respiratory insufficiency acute April 05, 2024 8:20pm Right lower lobe pneumonia acute April 05, 2024 8:20pm Chronic hypoxemic respiratory failure chronic March 8:20pm COPD (chronic obstructive pulmonary disease) chronic March 8:20pm COPD with exacerbation chronic 2024 8:20pm GI bleed April, chronic March 9:11am Iron deficiency anemia chronic 2024 9:11am Iron deficiency anemia chronic [facility] Division 2024 1:14pm 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 April 27, 2024 1:14pm Bronchiectasis acute April 2:14pm Chronic hypoxemic respiratory failure chronic May 18, 2024 2:14pm COPD (chronic obstructive pulmonary disease) chronic May 18 025 2:14pm Nicotine dependence, cigarettes, in remission chronic April 252024 2:14pm Acute alteration in mental status acute June 20, 2024 6:06pm Acute and chronic respiratory failure with hypoxia acute June 20, 2024 6:06pm MRSA bacteremia acute May 6:06pm Sepsis acute June 20 6:06pm Claudication, intermittent removed June 20, 2024 6:06pm PAD (peripheral artery disease) removed June 20, 2024 6:06pm [facility] Work Phone: 1(172) 788-230804-11-2024 Procedure [facility] 03-21-2023 Telephone encounter Note* Telephone Encounter - Adri Perez RN - 03/21/2023 8:07 PM EST S: Pt's calling [facility] Nurse Advice Line regarding prescription problem. B: Pt was discharged today from [facility]. A: states [employer] insurance will not cover pt's insulin that was prescribed at discharge. wants to know why, and also what he can take instead. R: Advised that she has reached the [facility] Nurse Advice Line, and to please call the other number on her card regarding prescriptions. Caller ended call. Reason for Disposition [1] Follow-up call to recent contact AND [2] information only call, no triage required Protocols used: Information Only Call - No [id number] [id number] Miscellaneous Notes* Telephone Encounter - Adri Perez RN - 03/21/2023 8:07 PM EST S: [facility]. B: Pt was discharged today from [facility]. A: states [employer] insurance will not cover pt's insulin that was prescribed at discharge. wants to know why, and also what he can take instead. R: Advised that she has reached the [facility] Nurse Advice Line, and to please call the other number on her card regarding prescriptions. Caller ended call. Reason for Disposition [1] Follow-up call to recent contact AND [2] information only call, no triage required Protocols used: Information Only Call - No [id number] documented in this [facility]01-21-2024 History and physical note Author Nadira Ricks [facility] March 16, 2023 4:47pm Note Date/Time March 16, 2023 3 :13pm [facility] Medical Records Department [address] [place] [address] H&P Exam - Hospitalist 03/16/23 1449 MR#: [id number] Acct: [id number] Name: SAL ALONZO Jr. Rep #:[id number] : 1950 72 From: Nadira Ricks DO PCP: Dr. Donna Will MD Status:ADM IN Location: ICU CVICU20 02-24 HPI - General General Date of Admission: 03/16/23 Date of Service: 03/16/23 Chief Complaint: Fall/Fatigue/Hypotension/Hyperglycemia HPI Narrative SAL ALONZO, is a 72 M who presented to the emergency department at [facility] on 03/16/2023 after a fall at [...] admitted to the ICU for further care. [facility] Medical History Acute respiratory failure with hypoxia Allergic rhinitis Arthritis Asthma Atherosclerosis of coronary artery of crow heart without angina pectoris Bleeding tendency Cancer [...] 82.4 H, Lymph % (Auto) 7.3 L, [place] % (Auto) 5.5, Eos % (Auto) 0.5, [...] emergency department and case was discussed with DrJuan Friend by Dr. Marie Lactic acidosis -Sec [...] IVC filter that was placed in 2001 -[facility] COOK was diagnosed when patient had COVID-19 infection [...] minutes excluding procedures Charges/Coding Procedures Hospitalists Procedures: 11266 Critical Care 1st Hr 03/16/23 1647 <Electronically signed by Nadira Ricks DO> Cosigner Signature (if applicable): CC: Dr. Nadira Ricks DO; Dr. Donna Will MD~ Signed [facility] Work Phone: 1(892) 144-610801-21-2024 Discharge summary Author Eva Marie [facility] March 16, 2023 5:41pm Note Date/Time March 16, 2023 2 :34pm [facility] Medical Records Department [address] [place] [address] Emergency Department Summary 03/16/23 MR#: [id number] Acct: [id number] Name: SAL ALONZO Jr. Rep #:[id number] : 1950 72 From: Eva Lilly PCP: [...] Per EMS patient's blood sugar was in [id number]. Chart review shows the patient was recently [...] time of discharge patient's hemoglobin was 10.0. [facility] Medical History Acute respiratory failure with hypoxia Allergic rhinitis Arthritis Asthma Atherosclerosis of coronary artery of crow heart without angina pectoris Bleeding tendency Cancer [...] 82.4 H Lymph % (Auto) 7.3 L [place] % (Auto) 5.5 Eos % (Auto) 0.5 [...] Color Urine Clarity Urine pH Ur Specific [place] Urine Protein Urine Glucose (UA) Urine Ketones [...] (Auto) Neut % (Auto) Lymph % (Auto) [place] % (Auto) Eos % (Auto) Baso % [...] Clarity Clear Urine pH 6.5 Ur Specific [place] 1.010 Urine Protein 30 H Urine Glucose [...] procedures): 30-74 minutes (40), Discussing w/Patient &/or 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, Discussing w/Consultants and Arranging Admission or Transfer Discharge Plan Triage Chief Complaint: General Illness ED Provider: Eva Marie Dx/Rx/DC Orders Clinical Impression: Acute on chronic blood loss anemia, Acute hyperglycemia, Syncope, Acute kidney injury superimposed on CKD, Acute upper GI bleed Primary Care Provider: Donna Will Disposition Disposition: [facility] Discharge Date/Time: 03/16/23 17:40 What to do if you have Problems For any increased pain, shortness of breath, bleeding, nausea or vomiting, chestpain, or any unexpected problems, contact your Primary Care Provider. Call [facility] ([phone]) or report to the closest Emergency Room. Call 911 if necessary. 03/16/23 1741 <Electronically signed by Eva Marie DO> Cosigner Signature (if applicable): CC: Dr. Donna Will MD ~ Signed [facility] Work Phone: 1(606) 302-264301-11-2024 Discharge summary Author Jordan Ortiz [facility] March 06, 2023 11:07am Note Date/Time March 06, 2023 1 1:06am [facility] Medical Records Department [address] [facility] [facility] [place] [address] Discharge Summary 03/06/23 1105 MR#: [id number] Acct: [id number] Name: SAL ALONZO Jr. Rep #:[id number] : 1950 72 From: Jordan Ortiz MD PCP: Dr. Donna Will MD Status:ADM [facility] Providers Date of Admission: 03/03/23 [...] rhythm. 19. New onset A-fib ? Patient [id number] score was calculated to be 5 patient [...] 79.8 H, Lymph % (Auto) 8.3 L, [place] % (Auto) 10.8 H, Eos % (Auto) [...] Self Care Charges/Coding Visit Charges Inpatient E&M: 07525 Disch Hosp >30min 03/06/23 1107 <Electronically signed by Jordan Ortiz MD> Cosigner Signature (if applicable): CC: Dr. Jordan Ortiz MD; Dr. Donna Will MD~ Signed [facility] Work Phone: 1(261) 383-244901-11-2024 Progress note Author Jordan Ortiz [facility] March 06, 2023 9:43am Note Date/Time March 06, 2023 9 :43am [facility] Medical Records Department [address] [place] [address] Progress Note - Hospitalist 03/06/23 0940 MR#: [id number] Acct: [id number] Name: SAL ALONZO Rep #:[id number] : 1950 72 From: Jordan Ortiz MD PCP: Dr. Donna Will MD Status:ADM IN Location: [place] [address]- 1 Reason for Visit Reason for Visit: Diagnoses [...] 79.8 H, Lymph % (Auto) 8.3 L, [place] % (Auto) 10.8 H, Eos % (Auto) [...] rhythm. 19. New onset A-fib ? Patient [id number] score was calculated to be 5 patient subsequently startedon systemic anticoagulation with apixaban after discussion with him Time spent in the patient's overall evaluation,decision-making process, review of diagnostic data, adjustment of management, discussion with other providers, nursing nursing and ancillary staff involved in patient's care documentation,40 minutes Charges/Coding Visit Charges Inpatient E&M: 09229 Subs Hosp L2 03/06/23 0943 <Electronically signed by Jordan Ortiz MD> Cosigner Signature (if applicable): CC: ~ Signed [facility] Work Phone: 1(751) 858-697901-10-2024 Progress note Author Jordan Ortiz [facility] March 05, 2023 10:15am Note Date/Time March 05, 2023 1 0:15am [facility] Medical Records Department [address] [place] [address] Progress Note - Hospitalist 03/05/23 1012 MR#: [id number] Acct: [id number] Name: SAL ALONZO Rep #:[id number] : 1950 72 From: Jordan Ortiz MD PCP: Dr. Donna Will MD Status:ADM IN Location: [facility] RTK130- 1 Reason for Visit Reason for Visit: Diagnoses [...] documentation, 50minutes Charges/Coding Visit Charges Inpatient E&M: 66929 Subs Hosp 03/05/23 1015 <Electronically signed by Jordan Ortiz MD> Ctigner Signature (if applicable): CC: ~ Signed [facility] Work Phone: 1(245) 364-199401-09-2024 Consult note Author Peter Moseley [facility] March 04, 2023 12:01pm Note Date/Time March 04, 2023 12 :02pm [facility] Medical Records Department [address] [place] [address] Counseling Note - Pharmacy 03/04/23 1201 MR#: [id number] Acct: [id number] Name: SAL ALONZO Jr. Rep #:[id number] : 1950 72 From: Peter Moseley PCP: Dr. Donna Will MD Status:ADM IN Y Location: [place] [address] Pharmacy [facility] Service has performed discharge [...] 03/04/23 03/04/23 1201 <Electronically signed by Peter oleary> Date _ Peter Fofanaignstephanie Signature (if applicable): Date CC: ~ Signed [facility] Work Phone: 1(616) 980-960101-09-2024 Discharge summary Author Jordan Ortiz [facility] March 04, 2023 11:39am Note Date/Time March 04, 2023 11 :39am [facility] Medical Records Department [address] [place] [address] Discharge Summary 03/04/23 1138 MR#: [id number] Acct: [id number] Name: SAL ALONZO Jr. Rep #:[id number] : 1950 72 From: Jordan Ortiz MD PCP: Dr. Donna Will MD Status:ADM IN Location: [place] [address] Providers Date of Admission: 03/03/23 Date of [...] mg PO DAILY 3 days #3 tabs 01/07/24 guaifenesin 1,200 mg tablet, extended release 12 [...] 90.3 H, Lymph % (Auto) 3.5 L, [place] % (Auto) 5.1, Eos % (Auto) 0.0, [...] Attending Provider: Jordan Ortiz Primary Care Provider: Dnona Will Consulting Providers: Mable Pritchard Discharge Orders/Prescriptions [...] Self Care Charges/Coding Visit Charges Inpatient E&M: 12931 Disch Hosp >30min 03/04/23 1139 <Electronically signed by Jordan Ortiz MD> Cosigner Signature (if applicable): CC: Dr. Jordan Ortiz MD; Dr. Donna Will MD~ Signed [facility] Work Phone: 1(341) 211-596001-09-2024 Progress note Author Jordan [facility] March 04, 2023 11:36am Note Date/Time March 04, 2023 8: 18am [facility] Medical Records Department [address] [place] [address] Progress Note - Hospitalist 03/04/2318 MR#: [id number] Acct: [id number] Name: SAL ALONZO Jr. Rep #:[id number] : 1950 72 From: Jordan Ortiz MD PCP: Dr. Donna Will MD Status:ADM IN Location: [place] [address] Reason for Visit Reason for Visit: Diagnoses [...] Total 1350 / 1700 1750 / 2900 2100 / 2100 Balance 105 / -25 145 [...] documentation, 35minutes Charges/Coding Visit Charges Inpatient E&M: 35515 Subs Hosp L2 03/04/23 1136 <Electronically signed by Jordan Ortiz MD> Cosigner Signature (if applicable): CC: ~ Signed [facility] Work Phone: 1(571) 656-901701-08-2024 Progress note Author Jordan Ortiz [facility] March 03, 2023 9:16am Note Date/Time March 03, 2023 9: 03am [facility] Medical Records Department [address] [place] [address] Progress Note - Hospitalist 03/03/23 0903 MR#: [id number] Acct: [id number] Name: CHERISAL Jr. Rep #:[id number] : 1950 72 From: Jordan Ortiz MD PCP: Dr. Donna Will MD Status:ADM LEONCIO Location: [place] [address] Reason for Visit Reason for Visit: Diagnoses [...] 91.8 H, Lymph % (Auto) 3.5 L, [place] % (Auto) 3.9, Eos % (Auto) 0.0, [...] 50 Minutes Charges/Coding Visit Charges Inpatient E&M: 86897 Subs Hosp L3 03/03/23 0916 <Electronically signed by Jordan Ortiz MD> Cosigner Signature (if applicable): CC: ~ Signed [facility] Work Phone: 1(827) 327-278001-07-2024 Discharge summary Author Jordan Ortiz [facility] March 02, 2023 10:54am Note Date/Time March 02, 2023 10 :52am [facility] Medical Records Department [address] [place] [address] [place] [address] Discharge Summary 03/02/23 1050 MR#: [id number] Acct: [id number] Name: SAL ALONZO Jr. Rep #:[id number] : 1950 72 From: Jordan Ortiz MD PCP: Dr. Donna Will MD Status:ADM LEONCIO Location: [place] [address] Providers Date of Admission: 02/28/23 Date of [...] See Detail 03/01/23 07:14: Diff Path Review Josephine hair 03/01/23 11:09: POC Glucose 303 H 03/01/23 [...] 89.5 H, Lymph % (Auto) 5.3 L, [place] % (Auto) 4.0, Eos % (Auto) 0.0, [...] Self Care Charges/Coding Visit Charges Inpatient E&M: 98915 Disch Hosp >30min 03/02/23 1054 <Electronically signed by Jordan Ortiz MD> Cosigner Signature (if applicable): CC: Dr. Jordan Ortiz MD; Dr. Donna Will MD~ Signed [facility] Work Phone: 1(160) 256-490301-07-2024 Progress note Author Jordan Ortiz [facility] March 02, 2023 10:47am Note Date/Time March 02, 2023 7: 56am [facility] Medical Records Department [address] [place] [address] Progress Note - Hospitalist 03/02/23 0755 MR#: [id number] Acct: [id number] Name: SAL ALONZO Jr. Rep #:[id number] : 1950 72 From: Jordan Ortiz MD PCP: Dr. Donna Will MD Status:ADM LEONCIO Location: [place] [address] Reason for Visit Reason for Visit: Diagnoses [...] (Auto) 84.0 H, Lymph %(Auto) 10.9 L, [place] % (Auto) 4.0, Eos % (Auto) 0.0, [...] 89.5 H, Lymph % (Auto) 5.3 L, [place] % (Auto) 4.0, Eos % (Auto) 0.0, [...] documentation, 35Minutes Charges/Coding Visit Charges Inpatient E&M: 83441 Subs Hosp L2 03/02/23 1047 <Electronically signed by Jordan Ortiz MD> Cosigner Signature (if applicable): CC: ~ Signed [facility] Work Phone: 1(153) 638-318101-06-2024 Progress note Author Jordan Ortiz [facility] March 01, 2023 11:48am Note Date/Time March 01, 2023 8: 11am [facility] Medical Records Department [address] [place] [address] Progress Note - Hospitalist 03/01/23 0811 MR#: [id number] Acct: [id number] Name: SAL ALONZO Jr. Rep #:[id number] : 1950 72 From: Jordan Ortiz MD PCP: Dr. Donna Will MD Status:ADM LEONCIO Location: [place] [address] Reason for Visit Reason for Visit: Diagnoses [...] 74.3 H, Lymph % (Auto) 11.7 L, [place] % (Auto) 8.6, Eos % (Auto) 3.9, [...] documentation,55 Minutes Charges/Coding Visit Charges Inpatient E&M: 22947 [facility] Hosp 03/01/23 1148 <Electronically signed by Jordan Ortiz MD> Cosigner Signature (if applicable): CC: ~ Signed [facility] Work Phone: 1(366) 237-829201-05-2024 History and physical note Author Mable Pritcahrd [facility] February 28, 2023 4:59pm Note Date/Time February 28, 2023 4: 46pm [facility] Medical Records Department [address] [place] [address] H&P Exam - Hospitalist 02/28/23 1642 MR#: [id number] Acct: [id number] Name: SAL ALONZO JrJuan Rep #:[id number] : 1950 72 From: Mable Pritchard MD PCP: Dr. oDnna Will MD Status:ADM LEONCIO Location: [place] [address] HPI - General General Date of Admission: 02/28/23 Date of Service: 02/28/23 Chief Complaint: Gen weakness, SOB HPI Narrative SAL ALONZO, is a 72-year-old male history of COPD on 4 L home O2, diabetes, VTE,rheumatoid arthritis, depression, BPH who presented to [facility] 02/28/2023 with increased cough with yellowish [...] left leg is slightly swollen as well. [facility] Medical History Acute respiratory failure with hypoxia Allergic rhinitis Arthritis Asthma Atherosclerosis of coronary artery of crow heart without angina pectoris Bleeding tendency Cancer [...] 74.3 H, Lymph % (Auto) 11.7 L, [place] % (Auto) 8.6, Eos % (Auto) 3.9, [...] 12:46 EST Reading Location ID and State: [facility] / [place] , Service support , Assessment & Plan [...] Pritchard MD Charges/Coding Visit Charges Inpatient E&M: 18836 Init Hosp L2 02/28/23 1659 <Electronically signed by Mable Pritchard MD> Cosigner Signature (if applicable): CC: Dr. Donna Will MD; Dr. Mable Pritchard MD~ Signed [facility] Work Phone: 1(315) 818-347701-05-2024 Discharge summary Author Dwain Nowak [facility] February 28, 2023 4:16pm Note Date/Time February 28, 2023 11 :58am [facility] Medical Records Department [address] [place] [address] Emergency Department Summary 02/28/23 MR#: [id number] Acct: [id number] Name: SAL ALONZO Jr. Rep #:[id number] : 1950 72 From: Dwain Nowak MD [...] Arthritis Asthma Atherosclerosis of coronary artery of crow heart without angina pectoris Bleeding tendency Cancer [...] 74.3 H Lymph % (Auto) 11.7 L [place] % (Auto) 8.6 Eos % (Auto) 3.9 [...] 12:46 EST Reading Location ID and State: [address] [place] [address] , Service support , Chest x-ray, portable, single view shows a chronic right pleural effusion. Priorsternotomy. No acute process. Rhythm Strip Rhythm Strip: Sinus Rhythm Rate: 82 Ectopy: None EKG Initial EKG: Attestation: I personally reviewed and interpreted this EKG as follows: Interpretation: Sinus Rhythm and No Acute Injury Pattern Comments: Sinus rhythm rate 82 no acute signs of MT or ischemia. No acute change from prior EKG from October. Prior EKG tracings: available for review Prior: Unchanged Discharge Plan Dx/Rx/DC Orders Clinical Impression: History of COPD, History of chronic kidney disease, Acute dyspnea, Anemia, Pleural effusion on right, Acute hyperkalemia Disposition Disposition: [facility] What to do if you have Problems For any increased pain, shortness of breath, bleeding, nausea or vomiting, chestpain, or any unexpected problems, contact your Primary Care Provider. Call [facility] ([phone]) or report to the closest Emergency Room. Call 911 if necessary. 02/28/23 1616 <Electronically signed by Dwain Nowak MD> Cosigner Signature (if applicable): CC: Dr. Donna Will MD ~ Signed [facility] Work Phone: 1(863) 569-166101-05-2024 Discharge summary Author Dwain Nowak [facility] February 28, 2023 4:16pm Note Date/Time February 28, 2023 11 :58am [facility] Medical Records Department [address] [place] [address] Emergency Department Summary 02/28/23 MR#: [id number] Acct: [id number] Name: SAL ALONZO JrJuan Rep #:[id number] : 1950 72 From: Dwain Nowak MD [...] Prior similar symptoms: Yes Recent Illness/Hospitalization: No [facility] Medical History Acute respiratory failure with hypoxia Allergic rhinitis Arthritis Asthma Atherosclerosis of coronary artery of crow heart without angina pectoris Bleeding tendency Cancer [...] 74.3 H Lymph % (Auto) 11.7 L [place] % (Auto) 8.6 Eos % (Auto) 3.9 [...] 12:46 EST Reading Location ID and State: [address] [place] [address] , Service support , Chest x-ray, portable, single view shows a chronic right pleural effusion. Priorsternotomy. No acute process. Rhythm Strip Rhythm Strip: Sinus Rhythm Rate: 82 Ectopy: None EKG Initial EKG: Attestation: I personally reviewed and interpreted this EKG as follows: Interpretation: Sinus Rhythm and No Acute Injury Pattern Comments: Sinus rhythm rate 82 no acute signs of MT or ischemia. No acute change from prior EKG from October. Prior EKG tracings: available for review Prior: Unchanged Discharge Plan Dx/Rx/DC Orders Clinical Impression: History of COPD, History of chronic kidney disease, Acute dyspnea, Anemia, Pleural effusion on right, Acute hyperkalemia Disposition Disposition: Acute Care Hospital [facility] What to do if you have Problems For any increased pain, shortness of breath, bleeding, nausea or vomiting, chestpain, or any unexpected problems, contact your Primary Care Provider. Call [facility] ([phone]) or report to the closest Emergency Room. Call 911 if necessary. 02/28/23 1616 <Electronically signed by Dwain Nowak MD> Cosigner Signature (if applicable): CC: Dr. Donna Will MD ~ Signed [facility] Work Phone: 1(856) 856-303109-24-2023 Discharge summary [facility] November 17, 2022 11:58am Note Date/Time November 17, 2022 11:53am [facility] Medical Records Department [address] [place] [address] Discharge Summary 11/17/22 1150 MR#: [id number] Acct: [id number] Name: CHERISAL Andre Roper Rep #:[id number] : 1950 72 From: Jordan Ortiz MD PCP: Dr. Donna Will MD Status:ADM IN Location: [place] [address] Providers Date of Admission: 11/15/22 Date of [...] % (Auto) 60.4, Lymph % (Auto) 19.4, [place] % (Auto) 12.0 H, Eos % (Auto) [...] Self Care Charges/Coding Visit Charges Inpatient E&M: 70918 Disch Hosp >30min 11/17/22 1158 <Electronically signed by Jordan Ortiz MD> Cosigner Signature (if applicable): CC: Dr. Jordan Ortiz MD; Dr. Donna Will MD~ Signed [facility] Work Phone: 1(310) 113-122009-24-2023 Progress note Author Jordan Ortiz [facility] November 17, 2022 10:40am Note Date/Time November 17, 2022 8:32am [facility] Medical Records Department [address] [place] [address] Progress Note - Hospitalist 11/17/2231 MR#: [id number] Acct: [id number] Name: SAL ALONZO Jr. Rep #:[id number] : 1950 72 From: Jordan Ortiz MD PCP: Dr. Donna Will MD Status:ADM IN Location: [place] [address] Reason for Visit Reason for Visit: Diagnoses [...] Std Deviation 53.9 H, RDW Coeff of Rafeal 15.8 H, Plt Count 240, MPV 10.9, Immature Gran % (Auto) 1.000 H, Neut % (Auto) 60.4, Lymph % (Auto) 19.4, [place] % (Auto) 12.0 H, Eos % (Auto) [...] documentation, 35Minutes Charges/Coding Visit Charges Inpatient E&M: 92482 Subs Hosp L2 11/17/22 1040 <Electronically signed by Jordan Ortiz MD> Cosigner Signature (if applicable): CC: ~ Signed [facility] Work Phone: 1(738) 424-311109-23-2023 Progress note Author Jordan Ortiz [facility] November 16, 2022 11:02am Note Date/Time November 16, 2022 8:33am [facility] Medical Records Department [address] [place] [address] Progress Note - Hospitalist 11/16/22831 MR#: [id number] Acct: [id number] Name: SAL ALONZO Rep #:[id number] : 1950 72 From: Jordan Ortiz MD PCP: Dr. Donna Will MD Status:ADM IN Location: [place] [address] Reason for Visit Reason for Visit: Diagnoses [...] (Auto) 65.2, Lymph % (Auto) 17.9 L, [place] % (Auto) 8.9, Eos % (Auto) 6.0 [...] Signed: Antonio Field MD at 16:02 EDT Reading Location ID and State: [address] [place] [address] Tel , Service support , Physical Exam Narrative GENERAL: cooperative HEENT: [...] documentation, 55Minutes Charges/Coding Visit Charges Inpatient E&M: 14457 Subs Hosp L3 11/16/22 1102 <Electronically signed by Jordan Ortiz MD> Cosigner Signature (if applicable): CC: ~ Signed [facility] Work Phone: 1(157) 916-105309-22-2023 History and physical note Author Loki Lozoya [facility] November 15, 2022 8:33pm Note Date/Time November 15, 2022 7:11pm [facility] Medical Records Department [address] [place] [address] H&P Exam - Hospitalist 11/15/22 1905 MR#: [id number] Acct: [id number] Name: SAL ALONZO Rep #:[id number] : 1950 72 From: Loki worthington DO PCP: Dr. Donna Will MD Status:ADM IN Location: [place] [address] HPI - General General Date of Admission: 11/15/22 Date of Service: 11/15/22 Chief Complaint: Acute on chronic hypoxic respiratory failure HPI Narrative SAL ALONZO, is a 72 M with history [...] and former tobacco use who presented to [facility] ED on 11/13/2022 with worsening [...] right and small on left, bibasilar atelectasis. [facility] Medical History Acute respiratory failure with hypoxia Allergic rhinitis Arthritis Asthma Atherosclerosis of coronary artery of crow heart without angina pectoris Bleeding tendency Cancer [...] (Auto) 65.2, Lymph % (Auto) 17.9 L, [place] % (Auto) 8.9, Eos % (Auto) 6.0 [...] 55 minutes. Charges/Coding Visit Charges Inpatient E&M: 13146 Init Hosp L2 11/15/222032 <Electronically signed by Loki Lozoya DO> Cosigner Signature (if applicable): CC: Dr. Loki Lozoya DO; Dr. Donna Will MD~ Signed [facility] Work Phone: 1(465) 183-960409-22-2023 Discharge summary Author Jjdaisy Garcia [facility] November 15, 2022 7:09pm Note Date/Time November 15, 2022 2:59pm [facility] Medical Records Department [address] [place] [address] Emergency Department Summary 11/15/22 MR#: [id number] Acct: [id number] Name: SAL ALONZO Jr. Rep #:[id number] : 1950 72 From: Jj Garcia MD [...] Arthritis Asthma Atherosclerosis of coronary artery of crow heart without angina pectoris Bleeding tendency Cancer [...] (Auto) 65.2 Lymph % (Auto) 17.9 L [place] % (Auto) 8.9 Eos % (Auto) 6.0 [...] (Rate is 74. The EKG is normal. ND intervalis 152 ms. QRS duration 102 ms. QT duration 400 ms. Red Level is normal) Treatment and Re-Evaluation :: Walked [...] Provider] - Disposition Disposition: Acute Care Hospital [facility] What to do if you have Problems For any increased pain, shortness of breath, bleeding, nausea or vomiting, chestpain, or any unexpected problems, contact your Primary Care Provider. Call [facility] ([phone]) or report to the closest Emergency Room. Call 911 if necessary. 11/15/221908 <Electronically signed by Jj Garcia MD> Cosigner Signature (if applicable): CC: Dr. Donna Will MD ~ Signed [facility] Work Phone: 1(258) 937-112709-22-2023 Discharge summary Author Jj [facility] November 15, 2022 7:09pm Note Date/Time November 15, 2022 2:59pm [facility] Medical Records Department [address] [place] [address] Emergency Department Summary 11/15/22 MR#: [id number] Acct: [id number] Name: SAL ALONZO Andre Roper Rep #:[id number] : 1950 72 From: Jj Garcia MD [...] Arthritis Asthma Atherosclerosis of coronary artery of crow heart without angina pectoris Bleeding tendency Cancer [...] (Auto) 65.2 Lymph % (Auto) 17.9 L [place] % (Auto) 8.9 Eos % (Auto) 6.0 [...] (Rate is 74. The EKG is normal. ND intervalis 152 ms. QRS duration 102 ms. QT duration 400 ms. Red Level is normal) Treatment and Re-Evaluation :: Walked [...] Provider] - Disposition Disposition: Acute Care Hospital [facility] What to do if you have Problems For any increased pain, shortness of breath, bleeding, nausea or vomiting, chestpain, or any unexpected problems, contact your Primary Care Provider. Call [facility] ([phone]) or report to the closest Emergency Room. Call 911 if necessary. 11/15/221908 <Electronically signed by Jj Garcia MD> Cosigner Signature (if applicable): CC: Dr. Donna Will MD ~ Signed [facility] Work Phone: 1(448) 343-675007-06-2023 Discharge summary Author Adam Freeman [facility] August 29, 2022 6:21pm Note Date/Time August 29, 2022 4:41p m [facility] Medical Records Department [address] [place] [address] Emergency Department Summary 08/29/22 MR#: [id number] Acct: [id number] Name: SAL ALONZO Jr. 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 He and his family received [...] for a few months. No gross hematemesis. [facility] Medical History Acute respiratory failure with hypoxia Allergic rhinitis Arthritis Asthma Atherosclerosis of coronary artery of crow heart without angina pectoris Bleeding tendency Cancer [...] (1,000 unit) capsule 25 mcg PO DAILY [id number]/24/21 [History Last Taken 12/08/21] nitroglycerin 0.4 mg [...] Reaction Status Date / Time [facility] AdvReac Intermediate diarrhea, Verified 08/29/22 15:49 dizziness, [...] (Auto) 68.2 Lymph % (Auto) 15.6 L [place] % (Auto) 10.4 H Eos % (Auto) [...] as directed. You have prescriptions waiting at [facility] [employer] [place] for Carafate and Protonix. Disposition Disposition: Home, Self Care What to do if you have Problems For any increased pain, shortness of breath, bleeding, nausea or vomiting, chestpain, or any unexpected problems, contact your Primary Care Provider. Call [facility] ([phone]) or report to the closest Emergency Room. Call 911 if necessary. 08/29/22 1821 <Electronically signed by Adam Freeman MD> Cosigner Signature (if applicable): CC: Dr. Donna Will MD ~ Signed [facility] Work Phone: 1(542) 791-874007-06-2023 Hospital Discharge instructions Additional Instructions Follow-up with Dr. Galeana. They will attempt to contact you tomorrow for outpatient iron infusion. If you do not hear from them by 10 AM, call the office. Take your medications as directed. [facility] [employer] [place] for Carafate and Protonix. [facility] Work Phone: 1([phone]) 371-134804-12-2023 Procedure [facility] 05-16-2022 Procedure [facility]-2023 Procedure note [facility]01-27-2023 Procedure [facility] 04-24-2021 Evaluation note* Diagnosis Onset Date Resolution [...] remission acute Atherosclerosis of coronary artery of crow heart without angina pectoris chronic Chronic hypoxemic respiratory failure chronic COPD (chronic obstructive pulmonary disease) chronic Essential hypertension chron ic GI bleed April, chronic Iron deficiency anemia chron ic Obesity chronic Type 2 diabetes mellitus chr onic [facility] Work Phone: 1(218) 834-454003-01-2022 Evaluation note* Diagnosis Onset Date Resolution Status Iron deficiency anemia chron ic 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 Iron deficiency anemia chron ic 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 GI bleed April, chronic Iron deficiency anemia chron ic Nicotine dependence, cigarettes, in remission acute Atherosclerosis of coronary artery of crow heart without angina pectoris chronic Chronic hypoxemic respiratory failure chronic COPD (chronic obstructive pulmonary disease) chronic Essential hypertension chron ic GI bleed April, chronic Iron deficiency anemia chron ic Obesity chronic Type 2 diabetes mellitus chr onic Anemia chronic Iron deficiency anemia chron ic 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 Atherosclerosis of coronary artery of crow heart without angina pectoris chronic Essential hypertension [...] chronic Type 2 diabetes mellitus chr onic [facility] Work Phone: Consult note Author Kellen Sanchez [facility] March 06, 2023 4:39pm Note Date/Time March 06, 2023 4 :39pm [facility] Medical Records Department [address] [place] [address] Counseling Note - Pharmacy 03/06/23 1636 MR#: [id number] Acct: [id number] Name: SAL ALONZO Jr. Rep #:[id number] : 1950 72 From: Kellen Sanchez PCP: Dr. Donna Will MD Status:ADM IN [facility] has performed discharge [...] signed by Kellen Sanchez> Date _ Kellen Núñez Signature (if applicable): Date CC: ~ Signed [facility] Work Phone: Discharge summary Author Terry Singh [facility] Note Date/Time August 21, 2024 12:2 8pm [facility] Medical Records Department [address] [place] [address] Emergency Department Summary 08/21/24 MR#: [id number] Acct: [id number] Name: SAL ALONZO Jr. Rep #:[id number] : 1950 73 From: Terry Singh DO PCP: Dr. Donna Will MD Status:ADM IN Location: ICU ICU08-[address] Terry Singh DO on 08/21/24 at 1228 ABG reviewed which showed a pH 7.45 with [id number] patient is likely chronically hypercapnic according to this arterial blood gas. Critical care time 36 minutes. 08/21/24 1228<Electronically signed by Terry Singh DO> Cosigner Signature (if applicable): cc: Dr. Donna Will MD ~* Signed HPI History of Present Illness Chief Complaint: Shortness of Breath Narrative Narrative: Patient is a 73-year-old male past medical history of chronic kidney disease stage III, acute on chronic hypoxic respiratory failure chronically on 4 L nasalcannula, hypertension, PE according the record history of filter in place, CHF who presented to the emergency department chief complaint of shortness of breath. Patient states that this morning when he woke up he tried to get up outof bed and walked very short distance and was severely short of breath thereforehe called EMS to have him brought here for further evaluation management. Patient does note that he had some difficulty sleeping last night as he could not sit high enough in bed in order to provide relief to help him breathe. He states that he is chronically on oral steroids and he states that when he gets sick he is told that he should increase his dose of steroids. He states that hedoes not know why he is on chronic steroids. Per EMS he had significant increased work of breathing therefore they gave him 2 DuoNebs and route. They noted that he was 90% on his 4 L nasal cannula. [facility] Medical History MRSA (methicillin resistant staph aureus) [...] cell carcinoma Atherosclerosis of coronary artery of crow heart without angina pectoris Pneumonia Non-Hodgkin lymphoma [...] 1 tab PO DAILY vitamin 09/1307/07/24 History atorvastatin 40 mg tablet 20 mg (1/2 [...] #100 ea 12/03/23 Unkno wn Rx 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 sensor (FreeStyle #1 ea 12/24/23 Unknown Rx Basilio 3 Sensor device) 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,sales support coordinator,cont #1 ea 12/24/23 Unknown Rx (FreeStyle Basilio 3 [place]) furosemide 40 mg tablet (Lasix) 20 mg (1/2 x 40 mg) PO DAILY 03/08/24 07/07/24 Rx diuretic #60 tabs empagliflozin 10 mg tablet 10 mg PO QDAY diabetes 02/2507/07/24 History (Jardiance) ferrous sulfate 325 mg (65 mg 325 mg PO QODAY Suppleme nt 04/05/24 07/07/24 History iron) tablet (FeroSul) insulin glargine-yfgn 100 unit/mL 20 unit (0.2 mL) sub cut BIDCM high 06/25/24 07/08/24 Rx (3 mL) subcutaneous pen blood glucose #15 mL cholecalciferol (vitamin D3) 50 50 mcg PO QDAY 5 07/07/24 History mcg (2,000 unit) capsule pantoprazole 40 mg tablet,delayed 40 mg PO BID 5 07/07/24 History release (Protonix) carvedilol 3.125 mg tablet 3.125 mg PO BID BP #60 tabs 07/26/24 Unknown Rx Allergy/AdvReac Type Severity Reaction Status Date / Time No Known Allergies Allergy Verified 08/21/24 10:26 Family History Father Arthritis Bleeding disorder Hypertension [...] always ROS ROS ED ROS Narrative Constitutional: Denies any fevers, chills, headaches Eyes: Denies change in vision double vision blurry vision Cardiovascular: Denies chest pain Respiratory: Complains of cough and shortness of breath as noted above Abdomen: Denies abdominal pain nausea vomit diarrhea : Denies urinary symptoms Neurological: Denies any numbness, weakness, tingling Musculoskeletal: Denies back pain Skin: Denies rashes or lesions EXAM Physical Exam Narrative Exam Narrative: General: Patient was lying in bed rest comfortably did not appear to be acute distress Head: Atraumatic, normocephalic Eyes: PERRL bilaterally, EOMI about a, no conjunctival injection noted Neck: Soft, supple, trachea midline Cardiovascular: Regular rate and rhythm no murmurs gallops rubs noted Respiratory: Diminished breath sounds at the right lung base no wheezing noted diffusely Abdomen: Soft, nondistended, nontender to palpation Extremities: Patient does have 1+ pitting edema noted in the bilateral lower extremities, radial pulses +2/4 in the bilateral extremities Neurological: Patient following commands knew that he was at [facility] the year is 2024 Skin: Warm, dry, patient has diffuse flaky scaly skin on the his back noted no rashes no lesions noted Const Vital Signs: 08/21/24 10:26 08/21/24 10:51 08/21/24 10:52 Temperature 98.2 F Temperature Source Temporal Pulse Rate 81 Respiratory Rate 30 H Respiratory Effort Short of Breath Respiratory Depth Shallow Respiratory Pattern Tachypnea Blood Pressure 122/59 H Blood Pressure Mean 80 Pulse Ox 88 95 Oxygen Delivery Method Nasal Cannula Nasal Cannula Nasal Cannula Oxygen Flow Rate (L/min) 4 5 5 Fraction of Inspired Oxygen (FIO2) 08/21/24 10:52 Temperature Temperature Source Pulse Rate Respiratory Rate Respiratory Effort Respiratory Depth Respiratory Pattern Blood Pressure Blood Pressure Mean Pulse Ox Oxygen Delivery Method Nasal Cannula Oxygen Flow Rate (L/min) 5 Fraction of Inspired Oxygen (FIO2) 92 MDM MDM MDM Narrative Medical decision making narrative: Patient is a 73-year-old male who presented to the emergency department chief complaint of dyspnea on exertion. On the differential diagnose includes but notlimited to CHF exacerbation, pneumonia, pneumothorax, ACS, PE although feel thisless likely as he has IVC filter in place since 2021. Patient will not be given30 cc/kg bolus of IV fluid secondary to concern for CHF exacerbation. Patient be given 125 mg of Solu-Medrol he already received 2 DuoNeb's and route. Patient CBC reviewed showed no evidence leukocytosis white blood count normal at10.3, hemoglobin stable at 8.7, patient does have macrocytic anemia with MCV of 101.8. Patient INR normal at 1.1, PT of 14.1. Patient sodium normal 145, potassium normal at 4.5, creatinine was at his baseline at 1.27 does have underlying chronic kidney disease coronary previous blood draws. Patient lacticacid normal at 1.3, AST and ALT were 29 and 19 respectively. Patient's troponinwas 97 EKG was reviewed as well which showed sinus rhythm with a rate of 82 bpm this was compared to previous EKG from July 08, 2024 which at that point time showed atrial fibrillation for which she does have a history of this as well. Patient's proBNP elevated to 11,167. Patient's chest x-ray reviewed by myself which shows show concerning for vascular congestion when compared to previous chest x-ray on 07/08 with evidence of likely large pleural effusion on the right side. Patient will be placed on BiPAP for CHF exacerbation as well aswe given a milligram of Bumex. Patient's echocardiogram from 06/22/2024 reviewedshowed ejection fraction 25% with evidence of diastolic dysfunction noted. At this point time will discuss case with hospitalist for admission. Discussed case with hospitalist Dr. Sharp who accept the patient for admission. He will place the patient in the intensive care unit he was requesting ABG be ordered which was ordered. Patient was notified is agreeable to plan all question concerns answered. Lab Data Labs: Laboratory Results - last 24 hr 08/21/24 08/21/24 10:45 11:28 WBC 10.3 RBC 2.83 L Hgb 8.7 L Hct 28.8 L MCV 101.8 H MCH 30.7 MCHC 30.2 L RDW Std Deviation 68.8 H RDW Coeff of Rafael 18.4 H Plt Count 226 MPV 11.3 Immature Gran % (Auto) 1.100 H Neut % (Auto) 71.0 H Lymph % (Auto) 15.2 L [place] % (Auto) 10.5 H Eos % (Auto) 1.9 Baso % (Auto) 0.3 Absolute Neuts (auto) 7.3 Absolute Lymphs (auto) 1.57 Nucleated RBC % 0.4 PT 14.1 INR 1.1 APTT 25.6 Sodium 145 Potassium 4.5 Chloride 105 Carbon Dioxide 29.3 Anion Gap 11 BUN 21 H Creatinine 1.27 H Estim Creat Clear Calc 62.12 Est GFR (MDRD) Non-Af 59 L BUN/Creatinine Ratio 16.6 Glucose 150 H Lactic Acid 1.3 Calcium 8.2 Total Bilirubin 0.49 AST 29 ALT 19 Alkaline Phosphatase 71 Troponin T High S[place] 97 [place]* [place] [address] H Total Protein 6.2 Albumin 3.5 Globulin 2.7 Albumin/Globulin Ratio 1.3 Urine Color Cancelled Urine Clarity Cancelled Urine pH Cancelled Ur Specific [place] Cancelled U Specif Grav (Refrac) Cancelled Urine Protein Cancelled Urine Glucose (UA) Cancelled Urine Ketones Cancelled Urine Occult Blood Cancelled Urine Nitrite Cancelled Urine Bilirubin Cancelled Urine Urobilinogen Cancelled Ur Leukocyte Esterase Cancelled Urine RBC Cancelled Urine WBC Cancelled Ur Squamous Epith Cells Cancelled Ur Transition Epith Cell Cancelled Ur Renal Epithelial Cell Cancelled Calcium Oxalate Crystal Cancelled Uric Acid Crystals Cancelled Triple Phos Crystals Cancelled Other Crystals Cancelled Amorphous Sediment Cancelled Urine Bacteria Cancelled Hyaline Casts Cancelled Fine Granular Casts Cancelled Coarse Granular Casts Cancelled Waxy Casts Cancelled RBC Casts Cancelled WBC Casts Cancelled Urine Mucus Cancelled Urine Trichomonas Cancelled Urine Yeast Cancelled Discharge Plan Triage Chief Complaint: Shortness of Breath ED Provider: Terry Singh Dx/Rx/DC Orders Clinical Impression: CHF exacerbation, Acute on chronic hypoxic respiratory failure, Chronic kidney disease (CKD), Dyspnea on exertion, Anemia, macrocytic, Type 2 MT (myocardial infarction) Prescriptions: No Action multivitamin Tablet 1 tab PO [...] infected, or steroid patients [employer]UM [employer]ING [employer]GOR[employer] insulin glargine-yfgn 100 unit/mL (3 mL) insulin pen 20 unit subcut BIDCM Qty: 15 1RF atorvastatin 40 mg tablet 20 mg PO QHS Qty: 90 3RF escitalopram oxalate 10 mg tablet 10 mg PO DAILY 90 Days Qty: 90 3RF mirtazapine [Remeron] 15 mg tablet 7.5 mg PO QHS Qty: 90 3RF (DME) FreeStyle Basilio 3 Sensor Device See Rx Instructions .Route Qty: 1 5RF Rx Instructions: As directed (DME) FreeStyle Basilio 3 [place] Misc See Rx Instructions .Route Qty: 1 0RF Rx Instructions: As directed furosemide [Lasix] 40 mg tablet 20 mg PO DAILY Qty: 60 1RF pantoprazole [Protonix] 40 mg tablet,delayed release (DR/EC) 40 mg PO BID cholecalciferol (vitamin D3) 50 mcg (2,000 unit) capsule 50 mcg PO QDAY carvedilol 3.125 mg tablet 3.125 mg PO BID Qty: 60 11RF Rx Instructions: must administer with a meal/food Primary Care Provider: Donna Will Referrals: Donna Will MD [Primary Care Provider] - Print Language: Croatian Disposition Disposition: Acute Care Hospital [facility] What to do if you have Problems For any increased pain, shortness of breath, bleeding, nausea or vomiting, chestpain, or any unexpected problems, contact your Primary Care Provider. Call [facility] ([phone]) or report to the closest Emergency Room. Call 911 if necessary. 08/21/24 1202 <Electronically signed by Terry Singh DO> Cosigner Signature (if applicable): CC: Dr. Donna Will MD ~ Signed [facility] Work Phone: Discharge summary Author [facility] Note Date/Time August 25, 2024 3:14p [facility] Medical Records Department [address] [place] [address] Discharge Summary 08/25/24 1503 MR#: [id number] Acct: [id number] Name: SAL ALONZO Rep #:[id number] : 1950 73 From: Clive Panchal PCP: Dr. Donna Will MD Status:ADM IN Location: [facility] [id number]- [id number] Providers Date of Admission: 08/21/24 Date of Discharge: 08/25/24 Primary Care Physician: Dr. Donna Will MD Consultations 08/21/24 12:42 Consult: [employer] / Pulmonary Medicine Routine Consulting Provider: Intensivists/Pulmonary Med Reason for Consult: ACUTE on chr combined resp failure, HF and COPD exa EMERGENT Consult: No Notified: Yes Date Notified: 08/21/24 Time Notified: 12:42 Method of Notification: Answering Service Method of Consult:: Telemedicine 08/23/24 14:20 Consult: Infectious Disease Routine Consulting Provider: Kee York Reason for Consult: sputum cx Enterobacter and MRSA? EMERGENT Consult: No Notified: Yes Date Notified: 08/23/24 Time Notified: 14:20 Method of Notification: Text 08/24/24 13:03 Consult: Hospice / Palliative Care Routine Consulting Provider: [facility] Reason for Consult: Recurrent pulmonary infection, COPD exacerbation, respfailure and HF exa EMERGENT Consult: No MD Notified: Yes Date Notified: 08/24/24 Time Notified: 13:03 Method of Notification: per health and social care teacher Reason For Visit: ACUTE ON CHR HYPOXIC FAILURE Diagnosis Discharge Diagnosis (1) Acute and chronic respiratory failure with hypercapnia: Status: Chronic Code(s): J96.22 - Acute and chronic respiratory failure with hypercapnia Plan This is a 73-year-old gentleman being admitted for extreme shortness of breath/labored breathing and hypoxia and ABG suggestive of acute on chronic combined respiratory failure 1. Acute on chronic combined hypoxic and hypercarbic respiratory failure due toCHF exacerbation and mild COPD exacerbation: ABG 7.45/58/69 on 40% FiO2, 15/9, RR 14/min. On ABG bicarb is 42 but usually it is about 30. BMP bicarb is 29.3 yesterday which I think is inaccurate. Therefore chronic mild CO2 retention. Continue BiPAP support. [employer] consulted. 08/22: Discussed with the seismometer operator Dr. Berg yesterday. consult reviewed. Usually, previous ABG shows PCO2 around 45-48 but this time it is elevated to 58and bicarb around 13 but admission to 42. Impression was not to use BiPAP or AVAPS empirically because of his pH is compensated 7.45 with chronic CO2 retention, pCO2 58 therefore BiPAP/AVAPS can can cause respiratory alkalosis leading to Aryan Mcclellan respiration. He recommended simple CPAP pressure of 10to augment LV transpleural contractility followed by outpatient medical pulse oximetry with a split-night study. Advised to discontinue steroid. MRSA nasal screen positive but possible colonization. Not having any systemic signs and symptoms of pneumonia like fever, tachycardia on baseline oxygen. No cough. 08/23: Yesterday sputum culture showed GNR. Today, sputum culture updated Enterobacter cloacae 2+, staff aureus 2+ and MRSA nasal screen is positive. Therefore antibiotic plan is changed. Ceftriaxone discontinued. Started on IV vancomycin and Levaquin to cover a of organism. ID consult for further recommendation. Plan for right-sided thoracocentesis today. Pleural fluid analytical labs ordered. 08/24: Continue antibiotic. Serum protein 5.4, LDH 191, fluid protein, LDH and pH pending. Pleural fluid culture also sent. No leukocytosis. ID consulted 08/25: Fluid total protein and LDH no ordered not done. But seems more transudate. Total polynuclear 33.4%, mononuclear 66.6%. Neutrophil 47, lymphocyte 31, MagnaPhos 10. pH 7.6. Total WBC 526 cells. Patient had ID consult yesterday and thinks MRSA and Enterobacter cloacae are colonization not pathogenic therefore antibiotic discontinued to avoid C. difficile and antibiotic resistance. 2. Acute on chronic HFrEF: proBNP is high 11,267, chest x-ray is reviewed and shows pulmonary congestion/central hilar congestion but no significant consolidation. Started on IV Bumex 2 mg every 8 hourly and titrate the dose as per urine output and hemodynamics. Heart failure core measures including intakeand output, fluid restriction less than 1500 mL, daily weight monitoring, kidneyand electrolytes monitoring. Previous echo on September 04, 2023 with EF 25%, mildlydilated LV, severe global hypokinesis, PASP 30 mmHg. 08/22: BUN/creatinine increased from 21/1.27-25/1.37. Patient had 2850 mL urine output yesterday and 1200 since midnight as documented. Therefore decrease her dose of Bumex 2 mg IV twice daily. Bicarb also increased from 29-34 although BMP bicarb is not reliable. ABG total bicarb was 40. Troponin fluctuated 97, 103 and 95. Due to increased cardiac demand. 2D echo tomorrow a.m. 08/23: 2D echo, limited ordered and pending 08/24: 2D echo shows EF 25 to 30% similar to previous echo of March 2024. Severe systolic dysfunction. Continue diuretic Bumex 2 mg IV twice daily. Creatinine 1.41 stable. 08/25: Patient Bumex dose decreased to 1 mg p.o. twice daily. Spironolactone 25 mg daily. Advised follow-up in cardiology office Elizabeth Velazquez. Carvedilol dose increased to 6.25 mg twice daily. Repeat chest x-ray done todaywith shortness of breath on exertion is negative for pneumothorax. No evidence of pulmonary edema. Bilateral atelectasis and pleural effusion right more than left but improved compared to previous x-ray. This was communicated to the patient's son Ray today 3. Mild COPD exacerbation with history of chronic smoking: Patient quit smokingabout 2 months ago in June 2024. 55 pack years of smoking. Patient is being managed on scheduled bronchodilator, IV Solu-Medrol, Mucinex, incentive spirometry and Pep. Zithromax 500 mg IV 1 dose and then changed to oral for next 2 doses, total 3 doses for COPD exacerbation. Flu, COVID and RSV PCR ordered. Sputum culture ordered. 08/22: Discontinue IV Solu-Medrol 08/23: On scheduled bronchodilator. Continue incentive spirometry. 08/25: Advised follow-up in pulmonary office 4. DM type II: Glucose is 150 mg/dL. A1c tomorrow a.m. On Lantus 20 units subcutaneous twice daily continue with hypoglycemia protocol. Accu-Chek before meals and at bedtime with Humalog sliding scale coverage and hypoglycemia protocol. 08/22 A1c 7.4%. Glucose is high between 250-319. She has scheduled Humalog insulin added. But patient was on Solu-Medrol and which is discontinued now therefore glucose profile expected to improve. 08/23: Glucose is better controlled. Continue Lantus and scheduled Humalog insulin 08/24: Patient has hypoglycemia, glucose 55. Holding scheduled Lantus and Humaloginsulin. Monitor Gluc[place]ck checks. 08/25: Glucose around 120s. Hold scheduled insulin Tussend Humalog insulin. Continue sliding scale check. 5. CKD stage IIIa: BUN/creatinine appears on the baseline /.27. Previous./Creatinine 33/1.27 on June 2024 and fluctuates between 1.41-1.65. 08/22: BUN/creatinine increased from 21/1.27-25/1.37. Patient had 2850 mL urine output yesterday and 1200 since midnight as documented. Therefore decrease her dose of Bumex 2 mg IV twice daily. 08/24: Creatinine 1.41 stable. 08/25:08/25: Patient creatinine going up 1.6 therefore Bumex dose decreased to 1 mg p.o. twice daily. Advised to follow-up with nephrology in 2 weeks 6. 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 Bilateral leg swelling. Started on Lovenox 40 mL subcu daily with holding parameters given the patient has history of GI bleed found to have AVM on endoscopy. 7. History of GI bleed due to AVM and chronic GERD: Last EGD in March 2024 as mentioned below. Continue PPI twice daily. Impression: - Normal esophagus. - No gross lesions in the entire stomach. - Three bleeding angiodysplastic lesions in the duodenum. Treated with a heater probe. Clip was placed. 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 8. Chronic CAD status post stent: Continue home medications 9. Chronic BPH with obstruction -Continue home medications Flomax and finasteride 10. Depression/anxiety -Continue home medications 11. DVT prophylaxis: As mentioned above. With high risk of DVT/PE and high risk of bleeding, Lovenox continued with PPI with holding parameters if bleeding. On 08/24: After discussion with son on 08/24, he wanted hospice consult therefore ordered. Patient had hospice consult at 5:30 PM on 08/24 but patient is indecisive and wants more time to think before making decision either way. Patient is discharged home with home health. I again talked to patient's son Ray at today, 08/25 he agreed with the discharge plan to follow-up with the health palliative/hospice care at home. Living will/advanced directive/end of life care: Patient does have living will or advanced directive. His power of penetration tester for healthcare his but also with son and granddaughter involved in decision making. After discussion of benefits/risks procedures involved with full code, DNR CC arrest and DNR CC, the patient opted for DNR CC arrest with no intubation Patient doesn't want artificial life support including intubation, tube feed, ventilator and/chest compression, central venous catheter, vasopressor and DC shock if needed Total time spent in [id number] encounter in discussion of advanced directive 17 minutes. 08/23/24 13:30: Magnesium 1.9 08/23/24 14:52: WBC 8.1, RBC 2.73 L, Hgb 8.4 L, Hct 28.0 L, MCV 102.6 H, MCH 30.8, MCHC 30.0 L, RDW Std Deviation 68.2 H, RDW Coeff of Rafael 18.0 H, Plt Count 219, MPV 11.4, Immature Gran % (Auto) 1.100 H, Neut % (Auto) 70.6 H, Lymph % (Auto) 16.5 L, [place] % (Auto) 10.1 H, Eos % (Auto) 1.6, Baso % (Auto) 0.1, Absolute Neuts (auto) 5.7, Absolute Lymphs (auto) 1.34, Nucleated RBC % 0.4, Differential Comment SCANNED, Anisocytosis 1+, Sodium 144, Potassium 3.9, Chloride 101, Carbon Dioxide 31.8, Anion Gap 12, BUN 33 H, Creatinine 1.41 H, Estim Creat Clear Calc 55.07, Est GFR (MDRD) Non-Af 52 L, BUN/Creatinine Ratio 23.5 H, Glucose 223 H, Calcium 8.3 08/24/24 04:52: WBC 9.1, RBC 2.72 L, Hgb 8.2 L, Hct 27.5 L, MCV 101.1 H, MCH 30.1, MCHC 29.8 L, RDW Std Deviation 67.4 H, RDW Coeff of Rafael 18.1 H, Plt Count 218, MPV 11.6, Immature Gran % (Auto) 1.000 H, Neut % (Auto) 68.6, Lymph % (Auto) 16.2 L, [place] % (Auto) 11.1 H, Eos % (Auto) 2.9, Baso % (Auto) 0.2, Absolute Neuts (auto) 6.2, Absolute Lymphs (auto) 1.47, Nucleated RBC % 0.3, Anisocytosis 1+, Ovalocytes 1+, Sodium 146 H, Potassium 3.7, Chloride 102, Carbon Dioxide 35.6 H, Anion Gap 8, BUN 33 H, Creatinine 1.41 H, Estim Creat Clear Calc 55.82, Est GFR (MDRD) Non-Af52 L, BUN/Creatinine Ratio 23.3 H, Glucose 55 L, Calcium 8.1, Lactate Dehydrogenase 191, Total Protein 5.4 L 08/24/24 08:45: Fluid WBC 0.526, Fluid Tot Cell Count 0.580, Fld Polynuclear WBCs # 0.176, Fld Polynuclear WBCs % 33.4, Fluid Mononuclear WBCs 0.350, Fld Mononuclear WBCs % 66.6 Clinical Impression(s) from Imaging Studies Chest X-Ray 08/21/24 11:02 IMPRESSION: Worsened moderate right pleural effusion. Trace left base effusion. Superimposed focal consolidation not excluded within the right lower lobe. [id number] pulmonary edema. Median sternotomy wires. Cardiac silhouette is unchanged. No pneumothorax. Reading Location: [id number] Medications at Discharge Home Medications finasteride 5 mg tablet 5 mg PO DAILY prostate 08/14/22 tamsulosin 0.4 mg capsule 0.4 mg PO QHS prostate 08/14/22 multivitamin 1 tab PO DAILY vitamin 09/13/22 budesonide 1 mg/2 mL suspension for nebulization 1 mg (2 mL) inhalation Q12H wheezing/SOB #120 mL 09/19/23 ipratropium 0.5 mg-albuterol 3 mg (2.5 mg base)/3 mL nebulization soln 3 ml inhalation Q4H PRN PRN SOB &/OR WHEEZING #270 mL 09/19/23 escitalopram oxalate 10 mg tablet 10 mg PO DAILY mood 90 days #90 tabs 10/29/23 mirtazapine 15 mg tablet (Remeron) 7.5 mg (1/2 x 15 mg) PO QHS sleep #90 tabs 10/29/23 insulin aspart U-100 100 unit/mL (3 mL) subcutaneous pen See Protocol subcut ACHS high blood glucose 1 month #15 mL 11/12/23 needle (disp) 32 gauge 32 gauge x 5/16 (Easy Touch Hypodermic Needle) #100 ea 11/12/23 pen needle, diabetic 32 gauge x 5/32 #100 ea 12/03/23 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 sensor (FreeStyle Basilio 3 Sensor device) #1 ea 12/24/23 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,sales support coordinator,cont (FreeStyle Basilio 3 [place]) #1 ea 12/24/23 empagliflozin 10 mg tablet (Jardiance) 10 mg PO QDAY diabetes 03/16/24 ferrous sulfate 325 mg (65 mg iron) tablet (FeroSul) 325 mg PO QODAY Supplement 04/05/24 insulin glargine-yfgn 100 unit/mL (3 mL) subcutaneous pen 20 unit (0.2 mL) subcut BIDCM high blood glucose #15 mL 06/25/24 Held on 08/25/24. Instructions: Hold scheduled insulin. cholecalciferol (vitamin D3) 50 mcg (2,000 unit) capsule 50 mcg PO QDAY 06/28/24 atorvastatin 40 mg tablet 40 mg PO QHS 30 days #30 tabs 08/25/24 bumetanide 1 mg tablet 1 mg PO BID 1 month #60 tabs 08/25/24 carvedilol 3.125 mg tablet 6.25 mg (2 x 3.125 mg) PO BID BP #60 tabs 08/25/24 pantoprazole 40 mg tablet,delayed release (Protonix) 40 mg PO DAILY 30 days #0 tabs 08/25/24 sennosides 8.6 mg-docusate sodium 50 mg tablet (Stimulant Laxative Plus) 2 tab PO BID PRN Constipation #0 tabs 08/25/24 spironolactone 25 mg tablet 25 mg PO DAILY 1 month #30 tabs 08/25/24 Physical Exam Narrative Seen and examined. Patient on his baseline 4 L of oxygen. Intermittently required 6 L on exertion I think that is baseline. Patient is not short of breath at rest. Had right-sided thoracocentesis 08/24. Discussed with the patient's son on the phone over the clinical course and agreed with the discharge. Physical exam General: Alert, Oriented x3, Cooperative. Obesity, grade 1 BMI 31.4 kg/m? HEENT: Atraumatic, PERRLA, EOMI, Normocephalic. Oral: Oral mucosa dry. Neck: Supple, Negative Carotid Bruits. No JVD Chest wall/Lungs: Air entry improved in right lung, after right thoracocentesis. Mild bibasilar coarse crepitations Cardiovascular: Sinus rhythm with PVCs, Normal S1,S2, No M/G/R Abdomen: Bowel Sounds Present, Soft, Non Tender, Non-Distended : No dysuria. No renal angle tenderness. No suprapubic tenderness. Extremities: Bilateral 1+ ankle pitting edema, Capillary Refill Less than 3 Seconds Skin: No rashes, No breakdown Musculoskeletal: No Tenderness to Palpation of Joints or Extremities. ROM restricted at knees and hip joints Neurological: Cranial nerves II-XII grossly intact, DTR 2+/4. No acute focal neurological deficit. Psych/Mental Status: Normal Affect, Appropriate. Weight / BMI Weight Weight: 221 lb 1.978 oz Body Mass Index (BMI) 30.8 ABG / Lab / Microbiology Data 08/25/24 06:12 08/25/24 06:12 Laboratory: Laboratory Results - last 24 hr 08/24/24 08:45: Fluid pH 7.6, Fl Pathologist Comment Reviewed 08/25/24 06:12: WBC 9.3, RBC 2.89 L, Hgb 9.0 L, Hct 28.8 L, MCV 99.7 H, MCH 31.1, MCHC 31.3 L D, RDW Std Deviation 65.8 H, RDW Coeff of Rafael 17.8 H, Plt Count 214, MPV 11.1, Immature Gran % (Auto) 1.600 H, Neut % (Auto) 63.1, Lymph %(Auto) 21.0, [place] % (Auto) 10.9 H, Eos % (Auto) 3.2, Baso % (Auto) 0.2, AbsoluteNeuts (auto) 5.9, Absolute Lymphs (auto) 1.95, Nucleated RBC % 0.2, DifferentialComment SCANNED, Sodium 143, Potassium 3.7, Chloride 99, Carbon Dioxide 35.3 H, Anion Gap 9, BUN 33 H, Creatinine 1.61 H, Estim Creat Clear Calc 48.57 L, Est GFR (MDRD) Non-Af 45 L, BUN/Creatinine Ratio 20.6 H, Glucose 91, Calcium 8.0 Microbiology: Microbiology 08/21/24 16:15 Sputum, Expectorated/Coughed Gram Stain - Final 08/21/24 16:15 Sputum, Expectorated/Coughed Respiratory Culture - Final Enterobacter cloacae complex Meth. resistant Staph. aureus 08/24/24 08:45 Fluid - Ascites Gram Stain - Final 08/24/24 08:45 Fluid - Ascites Body Fluid Culture - Preliminary No growth-Final to follow 08/21/24 10:45 Blood Culture (Wb) - Right Wrist Blood Culture - Preliminary Gram positive luiza 08/21/24 12:15 Blood Culture (Wb) - Right Hand Blood Culture - Preliminary No growth in 48 hours. 08/21/24 11:28 Urine, Clean Catch Urine Culture - Final Culture exhibits no growth. 08/21/24 15:15 Nasal Secretion MRSA (PCR) - Final Meth. resistant Staph. aureus 08/21/24 15:15 Mucosa - Nasopharyngeal SARS-CoV-2, Influenza & RSV (PCR) - Final Radiography Diagnostic Testing: Radiology Impression Chest X-Ray 08/25/24 12:36 IMPRESSION: No evidence of pulmonary edema. Bibasilar atelectasis is seen, somewhat more conspicuous than on the prior examination, particularly in the left lung base; cannot exclude the presence of pneumonitis at either lung base. Pleural effusions, jfjxr-dwhiyqv-xtov-left, are noted. No pneumothorax is seen. The cardiomediastinal silhouette is stable, without evidence of cardiomegaly. Reading Location: [place] [address] D/C Instructions Discharge Diet: 8 Cup Fluid Restriction and 2000 mg Sodium Diet Weight Bearing Status: Weight bearing as tolerated Call your doctor if you observe: Fever of 101 or Higher, Coldness, Increased Pain, Numbness or Tingling, Change in Color, Inability to urinate, Inability to have a bowel movement, Shortness of breath, Dizziness, Fainting spells, Swellingin the ankles, Chest pain, Prolonged hiccupping, Increased palpitations (irregular heartbeat) and Calf discomfort DC O2, CPAP, BIPAP Needs Home O2 Discharge instructions: Yes Type of respiratory needs?: Oxygen Oxygen frequency: Continuous Continuous oxygen liters per minute: 6 DC home with Oxygen: Yes Home O2 MD Review: I have reviewed the oxygen testing, and the patient qualifies for home oxygen equipment and portability. The patient is mobile in the home and the community. When: IN 2 WEEKS Meaningful Use Info Meaningful Use Meaningful Use Diagnoses (Choose all that apply): CHF CHF MEDHAT/ARB ordered at discharge?: No Reason MEDHAT/ARB not ordered?: Worsening renal disease Documented LVEF (%): 25 Ischemic Stroke Statin Dosing Therapy Reference: STATIN DOSE THERAPY REFERENCE: * Patients > 75 years receive moderate or high dose statin therapy. * Patients 75 years or YOUNGER should receive HIGH intensity statin dose unless contraindicated. You will be required to document reason for non-treatment if statin daily dose does not meet guidelines. HIGH DOSE STATIN THERAPY DAILY Atorvastatin > than or = to 40 mg Rosuvastatin > than or = to 20 mg Amlodipine + Atorvastatin > than or = to 2.5/40 mg Ezetimibe + Simvastatin 10/80 mg Simvastatin 80mg Discharge Plan Admission Admit Date/Time: 08/21/24 12:12 Primary Reason for Your Visit: Heart failure exacerbation, pulmonary edema Attending Provider: Clive Sharp Primary Care Provider: Donna Will Consulting Providers: Isaias Granados; Cisco Cortés; Alexi Roblero; Anthony Singleton; Jordan Alonzo; Meet Mckeon; Carlito Cárdenas; Claudine Andrade; Marvin Coats; Dimas Alvarenga; Kashif Berg; Elizabeth Wilson; Aric Leon; Ashanti Dugan; [place],Mitch; Rajeev Dalton; Roberto Escalante; Nikolai Keller; Leyda Fischer; Yolie Zapata; Dao Avila; Madi Tavarez; Zhang Concepcion; Kee York; Jordan Davis; Adriana Goel; Farida Todd; Linda Huizar; Katelynn Greenberg NP; Ashleigh Mcconnell Discharge Orders/Prescriptions Prescriptions: New atorvastatin 40 mg Tablet 40 mg PO QHS 30 Days Qty: 30 2RF sennosides-docusate sodium [Stimulant Laxative Plus] 8.6-50 mg Tablet 2 tab PO BID PRN (Reason: Constipation) Qty: 0 0RF bumetanide 1 mg tablet 1 mg PO BID 30 Days Qty: 60 1RF spironolactone 25 mg tablet 25 mg PO DAILY 30 Days Qty: 30 0RF Rx Instructions: Hold for serum potassium more than 5.0 Continued multivitamin Tablet 1 tab PO DAILY tamsulosin [...] infected, or steroid patients MEDIUM DOSING ALGORITHIM escitalopram oxalate 10 mg tablet 10 mg PO DAILY 90 Days Qty: 90 3RF mirtazapine [Remeron] 15 mg tablet 7.5 mg PO QHS Qty: 90 3RF (DME) FreeStyle Basilio 3 Sensor Device See Rx Instructions .Route Qty: 1 5RF Rx Instructions: As directed (DME) FreeStyle Basilio 3 [place] Misc See Rx Instructions .Route Qty: 1 0RF Rx Instructions: As directed cholecalciferol (vitamin D3) 50 mcg (2,000 unit) capsule 50 mcg PO QDAY Changed carvedilol 3.125 mg tablet 6.25 mg PO BID Qty: 60 11RF Rx Instructions: must administer with a meal/food pantoprazole [Protonix] 40 mg tablet,delayed release (DR/EC) 40 mg PO DAILY 30 Days Qty: 0 0RF Held insulin glargine-yfgn 100 unit/mL (3 mL) insulin pen 20 unit subcut BIDCM Qty: 15 1RF Hold Instructions: Hold scheduled insulin. Discontinued atorvastatin 40 mg tablet 20 mg PO QHS Qty: 90 3RF furosemide [Lasix] 40 mg tablet 20 mg PO DAILY Qty: 60 1RF Referrals / Follow Up: Donna Will MD [Primary Care Provider] - Gris Naik GOLF INSTRUCTOR-C [Med Staff - Adv Practice Prof] - Within 2 Weeks (Bilateral pleural effusion, COPD.) Elizabeth Velazquez, PA [Med Staff - Adv Practice Prof] - Within 2 Weeks (For heart failure, pulmonary edema) Zaira Lopez MD [Med Staff - Consulting] - Within 1 Month Disposition Disposition (needs filled in before D/C Order can be placed): Home Health Service Charges/Coding Visit Charges Inpatient E&M: 22359 Subs Hosp L2 08/25/24 7527 <Electronically signed by Clive Sharp MD> Cosigner Signature (if applicable): CC: Dr. Donna Will MD; Dr. Clive Sharp MD~ Signed [facility] Work Phone: Evaluation note* Diagnosis Onset Date Resolution Status COVID-19 acute Acute hypoxemic respiratory failure due to COVID-19 resolved Encephalopathy acute resolve d FTT (failure to thrive) in adult resolved Hypoxia resolved COVID-19 acute Atherosclerosis of coronary artery of [place] heart without angina pectoris chronic Hyperlipidemia chronic Acute hypoxemic respiratory failure due to COVID-19 resolved Acute alteration in mental status resolved Acute respiratory failure with hypoxia resolved Hypoxemia resolved Pneumonia resolved Pneumonia acute Asthma chronic Atherosclerosis of coronary artery of [place] heart without angina pectoris chronic Chronic bronchitis [...] deficiency acute Chronic obstructive pulmonary disease chronic [facility] Work Phone: Evaluation note* Diagnosis Onset Date Resolution Status Acute alteration in mental status resolved Acute respiratory failure with hypoxia resolved Hypoxemia resolved Pneumonia resolved Pneumonia acute Asthma chronic Atherosclerosis of coronary artery of [place] heart without angina pectoris chronic Chronic bronchitis [...] History of diabetes mellitus, type II chronic [facility] Work Phone: Evaluation note* Diagnosis Onset Date Resolution Status Acute alteration in mental status resolved Acute respiratory failure with hypoxia resolved Hypoxemia resolved Pneumonia resolved Pneumonia acute Asthma chronic Atherosclerosis of coronary artery of [place] heart without angina pectoris chronic Chronic bronchitis [...] II chronic Generalized weakness acute Pneumonia acute [facility] Work Phone: Evaluation note* Diagnosis Onset [...] embolism acute Swelling of lower extremity acute [facility] Work Phone: Evaluation note* Diagnosis Onset Date Resolution Status Acute on chronic respiratory failure with hypoxemia chronic Chronic obstructive pulmonary disease chronic Chronic obstructive pulmonary disease chronic Hyperlipidemia chronic Generalized weakness resolve d Pneumonia resolved Iron deficiency anemia chron ic Swelling of lower extremity chronic Hypoxia acute Leukocytosis acute Pneumonia acute [facility] Work Phone: Evaluation note* Diagnosis Onset Date Resolution Status Acute on chronic respiratory failure with hypoxemia chronic Chronic obstructive pulmonary disease chronic Chronic obstructive pulmonary disease chronic Hyperlipidemia chronic Generalized weakness resolve d Pneumonia resolved Iron deficiency anemia chron ic Swelling of lower extremity chronic Pneumonia acute Hypoxia resolved Leukocytosis resolved Atherosclerosis of coronary artery of [place] heart without angina pectoris chronic Essential hypertension [...] chronic Type 2 diabetes mellitus chr onic [facility] Work Phone: Evaluation note* Diagnosis Onset Date Resolution Status Iron deficiency anemia chron ic Swelling of lower extremity chronic Pneumonia acute Hypoxia resolved Leukocytosis resolved Atherosclerosis of coronary artery of [place] heart without angina pectoris chronic Essential hypertension [...] Leukocytosis acute Pneumonia acute COPD exacerbation chronic [facility] Work Phone: Evaluation note* Diagnosis Onset Date Resolution Status Iron deficiency anemia chron ic Swelling of lower extremity chronic Pneumonia acute Hypoxia resolved Leukocytosis resolved Atherosclerosis of coronary artery of [place] heart without angina pectoris chronic Essential hypertension [...] exacerbation chronic Iron deficiency anemia chron ic [facility] Work Phone: Evaluation note* Diagnosis Onset Date Resolution Status Iron deficiency anemia chron ic Swelling of lower extremity chronic Hypoxia resolved Leukocytosis resolved Pneumonia resolved Atherosclerosis of coronary artery of [place] heart without angina pectoris chronic Essential hypertension [...] 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 [facility] Work Phone: Evaluation note* Diagnosis Onset Date Resolution Status Hypoxia resolved Leukocytosis resolved Pneumonia resolved Atherosclerosis of coronary artery of [place] heart without angina pectoris chronic Essential hypertension [...] 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 [facility] Work Phone: Evaluation note* Diagnosis Onset [...] Bilateral pneumonia acute Debility acute Hypoxemia acute [facility] Work Phone: Evaluation note* Diagnosis Onset [...] with hypoxemia chronic Chronic obstructive pulmonary disease [facility] Work Phone: Evaluation note* Diagnosis Onset [...] failure chronic COPD (chronic obstructive pulmonary disease) [facility] Work Phone: Evaluation note* Diagnosis Onset [...] 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 [facility] Work Phone: Evaluation note* Diagnosis Onset [...] (chronic obstructive pulmonary disease) chronic Tobacco abuse [facility] Work Phone: Evaluation note* Diagnosis Onset [...] April, chronic Iron deficiency anemia chron ic [facility] Work Phone: Evaluation note* Diagnosis Onset [...] failure acute Atherosclerosis of coronary artery of [place] heart without angina pectoris chronic Chronic kidney [...] chronic Nicotine dependence, cigarettes, in remission chronic [facility] Work Phone: Evaluation note* Diagnosis Onset [...] failure acute Atherosclerosis of coronary artery of [place] heart without angina pectoris chronic Chronic kidney [...] Anemia acute Pleural effusion on right ac [place] History of chronic kidney disease chronic History of COPD chronic [facility] Work Phone: Evaluation note* Diagnosis Onset [...] failure acute Atherosclerosis of coronary artery of [place] heart without angina pectoris chronic Chronic kidney [...] failure acute Pleural effusion on right ac [place] COPD exacerbation chronic History of chronic kidney disease chronic History of COPD chronic History of coronary artery stent placement September chronic Type 2 diabetes mellitus chr onic History of pulmonary embolus (PE) April 30, 2021 resolved [facility] Work Phone: Evaluation note* Diagnosis Onset [...] failure acute Atherosclerosis of coronary artery of [place] heart without angina pectoris chronic Chronic kidney [...] failure acute Pleural effusion on right ac [place] COPD exacerbation chronic History of chronic kidney disease chronic History of COPD chronic History of coronary artery stent placement September chronic Type 2 diabetes mellitus chr onic Acute hyperkalemia resolved Anemia resolved History of pulmonary embolus (PE) April 30, 2021 resolved Acute anemia acute Acute lactic acidosis acute LUIS (acute kidney injury) ac [place] Elevated troponin I level ac [place] Fall acute Fatigue acute Hemorrhagic shock acute Hyperglycemia acute Hypotension acute Leukocytosis acute Pleural effusion on right ac [place] [facility] Work Phone: Evaluation note* Diagnosis Onset Date Resolution Status Anemia chronic Iron deficiency anemia chron ic Iron deficiency anemia refra ctory to iron therapy chronic Chronic hypoxemic respiratory failure chronic COPD (chronic obstructive pulmonary disease) chronic Nicotine dependence, cigarettes, in remission chronic Acute dyspnea acute Heart failure acute Pleural effusion on right ac [place] COPD exacerbation chronic History of chronic kidney disease chronic History of COPD chronic History of coronary artery stent placement September chronic Type 2 diabetes mellitus chr onic Acute hyperkalemia resolved Anemia resolved History of pulmonary embolus (PE) April 30, 2021 resolved Acute anemia acute Acute hyperglycemia acute Acute lactic acidosis acute LUIS (acute kidney injury) ac [place] Elevated troponin I level ac [place] Fall acute Fatigue acute Hemorrhagic shock acute Hyperglycemia acute Hypotension acute Leukocytosis acute Pleural effusion on right ac [place] Syncope acute Acute on chronic blood loss [...] resolved Acute upper GI bleed resolve d [facility] Work Phone: Evaluation note* Diagnosis Onset Date Resolution Status Anemia chronic Iron deficiency anemia chron ic Iron deficiency anemia refra ctory to iron therapy chronic Chronic hypoxemic respiratory failure chronic COPD (chronic obstructive pulmonary disease) chronic Nicotine dependence, cigarettes, in remission chronic Acute dyspnea acute Heart failure acute Pleural effusion on right ac [place] COPD exacerbation chronic History of chronic kidney disease chronic History of COPD chronic History of coronary artery stent placement September chronic Type 2 diabetes mellitus chr onic Acute hyperkalemia resolved Anemia resolved History of pulmonary embolus (PE) April 30, 2021 resolved Acute anemia acute Acute hyperglycemia acute Acute lactic acidosis acute LUIS (acute kidney injury) ac [place] Elevated troponin I level ac [place] Fall acute Fatigue acute Hemorrhagic shock acute Hyperglycemia acute Hypotension acute Leukocytosis acute Pleural effusion on right ac [place] Syncope acute Acute on chronic blood loss [...] fraction) acute Atherosclerosis of coronary artery of crow heart without angina pectoris chronic Essential hypertension chron ic History of coronary artery stent placement September chronic Hyperlipidemia chronic Iron deficiency anemia chron ic [facility] Work Phone: Evaluation note* Diagnosis Onset Date Resolution Status Acute dyspnea acute Heart failure acute Pleural effusion on right ac absentee-[place] COPD exacerbation chronic History of chronic kidney disease chronic History of COPD chronic History of coronary artery stent placement September chronic Type 2 diabetes mellitus chr onic Acute hyperkalemia resolved Anemia resolved History of pulmonary embolus (PE) April 30, 2021 resolved Acute anemia acute Acute hyperglycemia acute Acute lactic acidosis acute LUIS (acute kidney injury) ac absentee-shawnee Elevated troponin I level ac absentee-shawnee Fall acute Fatigue acute Hemorrhagic shock acute Hyperglycemia acute Hypotension acute Leukocytosis acute Pleural effusion on right ac absentee-shawnee Syncope acute Acute on chronic blood loss [...] anemia refra ctory to iron therapy chronic [facility] Work Phone: History and physical note Author Clive Sharp [facility] Note Date/Time August 21, 2024 12:5 8pm [facility] Medical Records Department [address] [place] [address] H&P Exam - Hospitalist 08/21/24 1223 MR#: [id number] Acct: [id number] Name: SAL ALONZO Jr. Rep #:[id number] : 1950 73 From: Clive Panchal PCP: Dr. Donna Will MD Status:ADM IN Location: ICU ICU08-1 HPI - General General Date of Admission: 08/21/24 Date of Service: 08/21/24 Chief Complaint: Shortness of breath progressively worsening for last 2 days. History of heart failure and CHF HPI Narrative SAL ALONZO, is a 73 M with multiple comorbidities and recurrent admission came to ED for worsening shortness of breath for 2 days with cough, chest congestion,thick whitish phlegm but no fever. Today, after he woke up he was so short of breath/labored breathing that he could not walk therefore came to ED. At home he is only on 4 L of oxygen at rest and 5 L on exertion. Patient is stated he does not have any NIPPV/Trelegy/BiPAP. In ED, patient was was initially put on 4 L of oxygen was 88% and then it was increased but is still he was labored breathing therefore put on BiPAP. ABG wasdone subsequently. Patient has dose of Bumex 1 mg IV and Solu-Medrol 125 mg IV Patient is further being admitted in ICU. [facility] Medical History (Updated 08/21/24 @ 12:[address] Clive Sharp MD) MRSA (methicillin resistant staph aureus) culture positive [...] cell carcinoma Atherosclerosis of coronary artery of crow heart without angina pectoris Pneumonia Non-Hodgkin lymphoma [...] 1 tab PO DAILY vitamin 09/1307/07/24 History atorvastatin 40 mg tablet 20 mg (1/2 [...] x #100 ea 11/12/23 Unk nown Rx /16 (Easy Touch Hypodermic Needle) pen needle, diabetic 32 gauge x #100 ea 12/03/23 Unkno wn Rx 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 sensor (FreeStyle #1 ea 12/24/23 Unknown Rx Basilio 3 Sensor device) 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,sales support coordinator,cont #1 ea 12/24/23 Unknown Rx (FreeStyle Basilio 3 [place]) furosemide 40 mg tablet (Lasix) 20 mg (1/2 x 40 mg) PO DAILY 03/08/24 07/07/24 Rx diuretic #60 tabs empagliflozin 10 mg tablet 10 mg PO QDAY diabetes /03/2007/07/24 History (Jardiance) ferrous sulfate 325 mg (65 mg 325 mg PO QODAY Suppleme nt 04/05/24 07/07/24 History iron) tablet (FeroSul) insulin glargine-yfgn 100 unit/mL 20 unit (0.2 mL) sub cut BIDCM high 06/25/24 07/08/24 Rx (3 mL) subcutaneous pen blood glucose #15 mL cholecalciferol (vitamin D3) 50 50 mcg PO QDAY 5 07/07/24 History mcg (2,000 unit) capsule pantoprazole 40 mg tablet,delayed 40 mg PO BID 5 07/07/24 History release (Protonix) carvedilol 3.125 mg tablet 3.125 mg PO BID BP #60 tabs 07/26/24 Unknown Rx Allergy/AdvReac Type Severity Reaction Status Date / Time No Known Allergies Allergy Verified 08/21/24 10:26 Family History Father Arthritis Bleeding disorder Hypertension [...] exercise seatbelt use: always ROS ROS Narrative Limited ROS because of being on BiPAP with labored breathing/respiratory distress Constitutional: Reports fatigue and weakness. No fever. HEENT: Chronic cough Respiratory/Chest: As described in HPI. CVS: Chest congestion. No chest pressure or pain Gastrointestinal: Denies coffee ground emesis, hematemesis or vomiting Genitourinary: Denies burning urination or new urinary tract symptoms Musculoskeletal: Denies acute joint pain or limited range of motion. No acute injury Neurologic: Denies seizure-like symptoms. skin: No ulcer. No rash Endocrinology: Reports systems reviewed and no addt'l complaints, except as documented Hematologic/Lymphatic: IVC filter. History of DVT. Reports systems reviewed and no addt'l complaints, except as documented Rest 14 ROS are negative except as mentioned in HPI Review of Systems ROS Unobtainable: other Details: Being on BiPAP, difficult to communicate Vital Signs Vital Signs Vital Signs: 08/21/24 10:26 08/21/24 10:51 08/21/24 10:52 Temperature 98.2 F Temperature Source Temporal Pulse Rate 81 Respiratory Rate 30 H Respiratory Effort Short of Breath Respiratory Depth Shallow Respiratory Pattern Tachypnea Blood Pressure 122/59 H Blood Pressure Mean 80 Pulse Ox 88 95 Oxygen Delivery Method Nasal Cannula Nasal Cannula Nasal Cannula Oxygen Flow Rate (L/min) 4 5 5 Fraction of Inspired Oxygen (FIO2) 08/21/24 10:52 08/21/24 11:31 08/21/24 12:00 Temperature 97.5 F L 97.5 F L Temperature Source Temporal Temporal Pulse Rate 64 69 Respiratory Rate 22 H 20 H Respiratory Effort Respiratory Depth Respiratory Pattern Blood Pressure 134/70 H 134/70 H Blood Pressure Mean 91 91 Pulse Ox 97 100 Oxygen Delivery Method Nasal Cannula Bi-pap Bi-pap Oxygen Flow Rate (L/min) 5 Fraction of Inspired Oxygen (FIO2) 92 08/21/24 12:00 08/21/24 12:13 Temperature 98.5 F Temperature Source Pulse Rate 67 64 Respiratory Rate 20 H 20 H Respiratory Effort Respiratory Depth Respiratory Pattern Normal Blood Pressure 127/62 H Blood Pressure Mean 83 Pulse Ox 95 95 Oxygen Delivery Method Oxygen Flow Rate (L/min) Fraction of Inspired Oxygen (FIO2) 40 Weight Weight: 225 lb 4.999 oz Body Mass Index (BMI) 31.4 Physical Exam Narrative General: Alert, Oriented x3, Cooperative. Obesity, grade 1 BMI 31.4 kg/m? HEENT: Atraumatic, PERRLA, EOMI, Normocephalic. Oral: On BiPAP Neck: Supple, Negative Carotid Bruits. JVD could not be evaluated because of being on BiPAP Chest wall/Lungs: Air entry severely diminished in both lung luu. Bilateralexpiratory rhonchi. Cardiovascular: Regular rate and rhythm, Normal S1,S2, No M/G/R Abdomen: Bowel Sounds Present, Soft, Non Tender, Non-Distended : No dysuria. No renal angle tenderness. No suprapubic tenderness. Extremities: Bilateral 3+ thigh-high pitting edema, Capillary Refill Less than 3Seconds Skin: No rashes, No breakdown Musculoskeletal: No Tenderness to Palpation of Joints or Extremities. ROM restricted at knees and hip joints Neurological: Cranial nerves II-XII grossly intact, DTR 2+/4. No acute focal neurological deficit. Psych/Mental Status: Normal Affect, Appropriate. Results Lab / Micro Data 08/21/24 10:45 08/21/24 10:45 Labs: Laboratory Results - last 24 hr 08/21/24 10:45: WBC 10.3, RBC 2.83 L, Hgb 8.7 L, Hct 28.8 L, MCV 101.8 H, MCH 30.7, MCHC 30.2 L, RDW Std Deviation 68.8 H, RDW Coeff of Rafael 18.4 H, Plt Count 226, MPV 11.3, Immature Gran % (Auto) 1.100 H, Neut % (Auto) 71.0 H, Lymph % (Auto) 15.2 L, [place] % (Auto) 10.5 H, Eos % (Auto) 1.9, Baso % (Auto) 0.3, Absolute Neuts (auto) 7.3, Absolute Lymphs (auto) 1.57, Nucleated RBC % 0.4, Platelet Estimate A, Polychromasia 1+, Anisocytosis 1+, PT 14.1, INR 1.1, APTT 25.6, Sodium 145, Potassium 4.5, Chloride 105, Carbon Dioxide 29.3, Anion Gap 11, BUN 21 H, Creatinine 1.27 H, Estim Creat Clear Calc 62.12, Est GFR (MDRD) Non-Af 59 L, BUN/Creatinine Ratio 16.6, Glucose 150 H, Lactic Acid 1.3, Calcium 8.2, Total Bilirubin 0.49, AST 29, ALT 19, Alkaline Phosphatase 71, Troponin T High Sens 97 H*, [place] [address] H, Total Protein 6.2, Albumin 3.5, Globulin2.7, Albumin/Globulin Ratio 1.3 08/21/24 11:28: Urine Color Cancelled, Urine Clarity Cancelled, Urine pH Cancelled, Ur Specific [place] Cancelled, U Specif Grav (Refrac) Cancelled, Urine Protein Cancelled, Urine Glucose (UA) Cancelled, Urine Ketones Cancelled, Urine Occult Blood Cancelled, Urine Nitrite Cancelled, Urine Bilirubin Cancelled, Urine Urobilinogen Cancelled, Ur Leukocyte Esterase Cancelled, Urine RBC Cancelled, Urine WBC Cancelled, Ur Squamous Epith Cells Cancelled, Ur Transition Epith Cell Cancelled, Ur Renal Epithelial Cell Cancelled, Calcium Oxalate Crystal Cancelled, Uric Acid Crystals Cancelled, Triple Phos Crystals Cancelled, Other Crystals Cancelled, Amorphous Sediment Cancelled, Urine Bacteria Cancelled, Hyaline Casts Cancelled, Fine Granular Casts Cancelled, Coarse Granular Casts Cancelled, Waxy Casts Cancelled, RBC Casts Cancelled, WBC Casts Cancelled, Urine Mucus Cancelled, Urine Trichomonas Cancelled, Urine YeastCancelled ABG Data ABG results: ABG 08/21/24 12:15 Specimen Type ART Sample Site L Radial pH 7.45 Bicarbonate Actual 39.9 H Total CO2 42 Base Excess 16 H O2 Saturation 94 L O2 % 40.0 ABG pCO2 58.0 H ABG pO2 69 L Thompson Test Positive Respiration Rate 14 O2 Delivery Device BiPAP Vent Mode Not entered POC PEEP 9 Imaging Radiology Impression Chest X-Ray 08/21/24 11:02 IMPRESSION: Worsened moderate right pleural effusion. Trace left base effusion. Superimposed focal consolidation not excluded within the right lower lobe. [id number] pulmonary edema. Median sternotomy wires. Cardiac silhouette is unchanged. No pneumothorax. Reading Location: [facility] Assessment & Plan Assessment/Plan (1) Acute and chronic respiratory failure with hypercapnia: PLAN: Plan This is a 73-year-old gentleman being admitted for extreme shortness of breath/labored breathing and hypoxia and ABG suggestive of acute on chronic combined respiratory failure 1. Acute on chronic combined hypoxic and hypercarbic respiratory failure due toCHF exacerbation and mild COPD exacerbation: ABG 7.45/58/69 on 40% FiO2, 15/9, RR 14/min. Patient is on bicarb is about 29-30 therefore chronic mild CO2 retention. Continue BiPAP support. [employer] consulted. 2. Acute on chronic HFrEF: proBNP is high 11,267, chest x-ray is reviewed and shows pulmonary congestion/central hilar congestion but no significant consolidation. Started on IV Bumex 2 mg every 8 hourly and titrate the dose as per urine output and hemodynamics. Heart failure core measures including intakeand output, fluid restriction less than 1500 mL, daily weight monitoring, kidneyand electrolytes monitoring. Previous echo on September 04, 2023 with EF 25%, mildlydilated LV, severe global hypokinesis, PASP 30 mmHg. 3. Mild COPD exacerbation with history of chronic smoking: Patient quit smokingabout 2 months ago in June 2024. 55 pack years of smoking. Patient is being managed on scheduled bronchodilator, IV Solu-Medrol, Mucinex, incentive spirometry and Pep. Zithromax 500 mg IV 1 dose and then changed to oral for next 2 doses, total 3 doses for COPD exacerbation. Flu, COVID and RSV PCR ordered. Sputum culture ordered. 4. DM type II: Glucose is 150 mg/dL. A1c tomorrow a.m. On Lantus 20 units subcutaneous twice daily continue with hypoglycemia protocol. Accu-Chek before meals and at bedtime with Humalog sliding scale coverage and hypoglycemia protocol. 5. CKD stage IIIa: BUN/creatinine appears on the baseline 21/1.27. Previous./Creatinine 33/1.27 on June 2024 and fluctuates between 1.41-1.65. 6. 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 Bilateral leg swelling. Started on Lovenox 40 mL subcu daily with holding parameters given the patient has history of GI bleed found to have AVM on endoscopy. 7. History of GI bleed due to AVM and chronic GERD: Last EGD in March 2024 as mentioned below. Continue PPI twice daily. Impression: - Normal esophagus. - No gross lesions in the entire stomach. - Three bleeding angiodysplastic lesions in the duodenum. Treated with a heater probe. Clip was placed. 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 8. Chronic CAD status post stent: Continue home medications 9. Chronic BPH with obstruction -Continue home medications Flomax and finasteride 10. Depression/anxiety -Continue home medications 11. DVT prophylaxis: As mentioned above. With high risk of DVT/PE and high risk of bleeding, Lovenox continued with PPI with holding parameters if bleeding. Living will/advanced directive/end of life care: Patient does have living will or advanced directive. His power of penetration tester for healthcare his but also with son and granddaughter involved in decision making. After discussion of benefits/risks procedures involved with full code, DNR CC arrest and DNR CC, the patient opted for DNR CC arrest with no intubation Patient doesn't want artificial life support including intubation, tube feed, ventilator and/chest compression, central venous catheter, vasopressor and DC shock if needed Total time spent in [id number] encounter in discussion of advanced directive 17 minutes. Laboratory Results 08/21/24 10:45: WBC 10.3, RBC 2.83 L, Hgb 8.7 L, Hct 28.8 L, MCV 101.8 H, MCH 30.7, MCHC 30.2 L, RDW Std Deviation 68.8 H, RDW Coeff of Rafael 18.4 H, Plt Count 226, MPV 11.3, Immature Gran % (Auto) 1.100 H, Neut % (Auto) 71.0 H, Lymph % (Auto) 15.2 L, [place] % (Auto) 10.5 H, Eos % (Auto) 1.9, Baso % (Auto) 0.3, Absolute Neuts (auto) 7.3, Absolute Lymphs (auto) 1.57, Nucleated RBC % 0.4, Platelet Estimate A, Polychromasia 1+, Anisocytosis 1+, PT 14.1, INR 1.1, APTT 25.6, Sodium 145, Potassium 4.5, Chloride 105, Carbon Dioxide 29.3, Anion Gap 11, BUN 21 H, Creatinine 1.27 H, Estim Creat Clear Calc 62.12, Est GFR (MDRD) Non-Af 59 L, BUN/Creatinine Ratio 16.6, Glucose 150 H, Lactic Acid 1.3, Calcium 8.2, Total Bilirubin 0.49, AST 29, ALT 19, Alkaline Phosphatase 71, Troponin T High Sens 97 H*, [place] [address] H, Total Protein 6.2, Albumin 3.5, Globulin2.7, Albumin/Globulin Ratio 1.3 08/21/24 12:15: Specimen Type ART, Sample Site L Radial, pH 7.45, Bicarbonate Actual 39.9 H, Total CO2 42, Base Excess 16 H, O2 Saturation 94 L, O2 % 40.0, ABG pCO2 58.0 H, ABG pO2 69 L, Thompson Test Positive, Respiration Rate 14, O2 Delivery Device BiPAP, Vent Mode Not entered, POC PEEP 9 Clinical Impression(s) from Imaging Studies Chest X-Ray 08/21/24 11:02 IMPRESSION: Worsened moderate right pleural effusion. Trace left base effusion. Superimposed focal consolidation not excluded within the right lower lobe. Thna-ok-ubzmaxto pulmonary edema. Median sternotomy wires. Cardiac silhouette is unchanged. No pneumothorax. Reading Location: [facility] Charges/Coding Visit Charges Inpatient E&M: 99635 Init Hosp L3 Procedures Hospitalists Procedures: 05641 Advncd Care Plan 30 Min 08/21/24 1254 <Electronically signed by Clive Sharp MD> Cosigner Signature (if applicable): CC: Dr. Donna Will MD; Dr. Clive Sharp MD~ Signed ADDENDUM by Dr. Clive Sharp MD on 08/21/24 at 1258 Addendum I talked to the patient's son, Mr. Ray Alonzo and informed about his diagnosis of respiratory failure and admission in ICU. He agrees that he is DNR CC arrestwith no intubation similar to previous hospitalization. 08/21/24 1254<Electronically signed by Clive Sharp MD> Cosigner Signature (if applicable): cc: Dr. Donna Will MD; Dr. Clive Sharp MD ~* Signed [facility] Work Phone[facility]: [facility] Work Phone: Hospital Discharge instructionsAmbulatory Orders* Prior Authorization Referral - ONC/HEM Location: None Selected [facility] Work Phone: Progress note Author Donna Will [facility] Note Date/Time December 06, 2024 9 :22am [facility] [address] [place] [address] OFFICE VISIT Date of Service: 12/06/24 MR#: [id number] Acct: [id number] Name: SAL ALONZO Rep #: [id number] : 1950 Provider: Dr. Paula Will MD Age/Sex: 74/M Location: [facility] Status: Signed Intake Vital Signs 09/16/24 10:08 10/08/24 08:22 12/06/24 08:40 Height 5 ft 11 in 5 ft 11 in 5 ft 11 in Weight: 210 lb 217 lb 8 oz BMI 29.2 30.3 BP 112/60 88/56 L Blood Pressure Location Rt brachial Lt brachial Position Sitting Sitting Respiration 20 H 16 Pulse 75 74 Pulse Source Monitor Monitor Temp 98.4 F Temp Source Temporal Pulse Oximetry (%) 90 86 Oxygen Delivery Method nasal canula nasal canula Oxygen Flow Rate (L/min) 5 3 Intake Visit Reasons: Annual/Physical Chief Complaint: Cramps in bilateral hands Visual Merchandising Coordinator Required: No Accompanied by: Son Is patient in pain?: No Allergies No Known Allergies Allergy (Verified 12/06/24 08:33) Medications ?Medication ?Instructions ?Recorded ?Confirmed ?Type finasteride 5 mg tablet 5 mg PO DAILY prostate 08/1412/06/24 History tamsulosin 0.4 mg capsule 0.4 mg PO QHS prostate 08/1412/06/24 History multivitamin 1 tab PO DAILY vitamin 09/1312/06/24 History mirtazapine 15 mg tablet (Remeron) 7.5 mg (1/2 x 15 mg ) PO QHS sleep 10/29/23 12/06/24 Rx #90 tabs needle (disp) 32 gauge 32 gauge x #100 ea 11/12/23 Rx 5/16 (Easy Touch Hypodermic Needle) pen needle, diabetic 32 gauge x #100 ea 12/03/2312/06 Rx 5/32 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 sensor (FreeStyle #1 ea 12/24/23 5 Rx Basilio 3 Sensor device) 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,sales support coordinator,cont #1 ea 12/24/23 12/06/24 Rx (FreeStyle Basilio 3 [place]) ferrous sulfate 325 mg (65 mg 325 mg PO QODAY Suppleme nt 04/05/24 12/06/24 History iron) tablet (FeroSul) insulin glargine-yfgn 100 unit/mL 20 unit (0.2 mL) sub cut BIDCM high 06/25/24 Rx (3 mL) subcutaneous pen blood glucose #15 mL cholecalciferol (vitamin D3) 50 50 mcg PO QDAY 5 12/06/24 History mcg (2,000 unit) capsule pantoprazole 40 mg tablet,delayed 40 mg PO DAILY 30 da ys #0 tabs 08/25/24 12/06/24 Rx release (Protonix) sennosides 8.6 mg-docusate sodium 2 tab PO BID PRN Con stipation #0 08/25/24 12/06/24 Rx 50 mg tablet (Stimulant Laxative tabs Plus) bumetanide 0.5 mg tablet 0.5 mg PO BID #180 tabs 08/2512/06/24 Rx insulin aspart U-100 100 unit/mL 13 unit subcut BID Hi gh Blood 09/16/24 12/06/24 Rx (3 mL) subcutaneous pen Glucose #15 mL albuterol sulfate 90 mcg/actuation 2 puff inhalation Q 6 PRN 09/24/24 12/06/24 History aerosol inhaler budesonide 1 mg/2 mL suspension 1 mg (2 mL) inhalation Q12H 09/24/24 12/06/24 Rx for nebulization wheezing/SOB #120 mL atorvastatin 40 mg tablet 40 mg PO QHS #90 tabs 12/06/24 Rx carvedilol 6.25 mg tablet 6.25 mg PO BID BP #180 tabs 10/08/24 12/06/24 Rx spironolactone 25 mg tablet 25 mg PO DAILY #90 tabs 12/06/24 Rx empagliflozin 10 mg tablet 10 mg PO DAILY #90 TABLETS 11/10/24 12/06/24 Rx (Jardiance) ipratropium 0.5 mg-albuterol 3 mg 3 ml inhalation Q4H PRN PRN SOB 11/26/24 12/06/24 Rx (2.5 mg base)/3 mL nebulization &/OR WHEEZING #270 mL soln escitalopram oxalate 10 mg tablet 10 mg PO DAILY mood 90 days #90 11/29/24 12/06/24 Rx tabs Have you fallen in the past year?: No PFSH Medical History Acute and chronic respiratory failure with hypercapnia Type 2 MT (myocardial infarction) MRSA (methicillin resistant staph aureus) culture positive [...] cell carcinoma Atherosclerosis of coronary artery of crow heart without angina pectoris Pneumonia Non-Hodgkin lymphoma [...] not exercise seatbelt use: always HPI HPI Chief Complaint: Cramps in bilateral hands Details: SAL ALONZO, is a 74 M who presents to the office today for short-term follow-up. 74-year-old gentleman who has an array of medical issues, chronically, including severe COPD, advanced, oxygen dependent. Follows with pulmonary medicine. Type 2 diabetes, essential hypertension, CAD, iron deficiency anemia history of GI bleed, chronic kidney disease. On multiple medications including Bumex, carvedilol, spironolactone managed through cardiology. Pulmonary medicines as per the chart. He is on insulin 20 units glargine twice daily, andinsulin aspart 13 units twice daily. In addition on Jardiance 10 mg daily. He has BPH, LUTS on tamsulosin and finasteride. Overall he states he is actually been doing pretty good. He just had a couple questions about medications. In particular about diuretics. We discussed thoseextensively. He will be seeing cardiology in mid December at which point I think they can address his diuretics. Perhaps his diuretic dosages could be lowered at some point in the near future. He does have history of chronic kidney disease, anemia, heart failure with reduced ejection fraction, and again severe COPD. He is now on BiPAP therapy. Getting better tolerating at this point. In terms of his diabetes, did not bring in his glucometer. He does state his blood sugars however in the mornings have been between 150 and 200 approximately. Obviously not ideal control. He is using his Lantus at 18 unitsat bedtime and insulin aspart, 10 units with sliding scale additional twice daily. I have asked him to continue this for right now. I do not have updated blood sugar readings per se. I have asked him to record blood sugars before breakfast and before supper for the next 2 weeks and drop those off. In the meantime his A1c will be done this afternoon along with other labs per oncology. Once we review this data we can make more reasonable adjustments. He will keepthe insulin regimen stable as he is currently doing right now but realizes we will need to adjust most likely. Review of systems per chart. Denies current chest pain, chest tightness. Feelsmaybe he is getting slightly bit more short of breath than he had been more recently. No change in cough pattern. No fever or chills. Physical exam. Vital signs on chart. PERRLA. Sclera are clear. TMs are unremarkable with normal light reflexes. Canals are unremarkable. Posterior pharynx is unremarkable. Edentulous. No obvious oral mucosal lesions. No cervical or supraclavicular lymph nodes enlarged or tender. No clear thyromegaly. No thyroid nodules readily palpable. Lungs are without wheeze, rhonchi. There are few scattered coarse rales with deep inspiration bilateral base. No E/A changes are heard. Heart is regular. Not tachycardic. No clear rub or gallop is identified. The abdomen is soft. Bowel sounds are present. Nontender nondistended abdomen. No clear palpable masses in the abdomen. No significant leg edema today. Cranial nerve examination 2 through 12 are grosslyunremarkable nonlateralizing. ROS Const Constitutional: No body ache, chills, excessive sweating, fatigue, fever(s), frequent falls, headache(s), snoring, weakness or change in appetite Eyes Eyes: No blurry vision, change in vision, eye pain or Light sensitivity ENT ENT: No abnormal hearing, ear or mastoid pain, tinnitus, nasal congestion, headache(s), neck pain or sore throat Resp Respiratory: No cough, shortness of breath, snoring or wheezing Cardio Cardiology: No chest pain at rest, chest pain with exertion, excessive sweating,dyspnea on exertion, lightheadedness, orthopnea or palpitations Gastro GI: No abdominal pain, change in bowel habits, constipation, cramping, diarrhea,nausea/dyspepsia or vomiting Genitourinary Male: No burning urination, painful urination, urinary incontinence or urinary frequency Musc Musculoskeletal: Positive for other (Cramps in bilateral hands ); No abnormal gait, joint pain, back pain, limited range of motion, muscle weakness, neck pain or numbness Skin Skin: No dry skin, redness, lesions, itchy eyes, rash or wounds Neuro Neurology: No abnormal gait, abnormal hearing, weakness, frequent falls, headache(s), memory loss or numbness Psych Psychiatric: No anxiety, No change in appetite, No depression, No memory loss and No Thoughts of harming yourself/Others Endo Endocrine: No cold intolerance, excessive sweating, fatigue, flushing, heat intolerance, increased thirst/drinking or increased hunger Aller/Imm Allergy/Immunologic: No itchy eyes, seasonal allergy symptoms, hives or wheezing Walt/Lymp Hematologic/Lymphatic: No easy bleeding or easy bruising Coding Level of Care Code Off vis,est,level 4 Diagnoses Acute and chronic respiratory failure with hypercapnia J96.22 Chronic kidney disease (CKD) N18.9 Centrilobular emphysema J43.2 COPD type: emphysema Emphysema type: centrilobular Essential hypertension I10 Type 2 diabetes mellitus E11.9 Pure hypercholesterolemia E78.00 Hyperlipidemia type: pure hypercholesterolemia Iron deficiency anemia, unspecified iron deficiency anemia type D50.9 Iron deficiency anemia type: unspecified iron deficiency HFrEF (heart failure with reduced ejection fraction) I50.20 Time Spent (min) 40 Assessment and Plan Assessment and Plan (1) Acute and chronic respiratory failure with hypercapnia: Status: Chronic (2) Chronic kidney disease (CKD): Status: Chronic (3) COPD (chronic obstructive pulmonary disease): Status: Chronic Qualifiers: COPD type: emphysema Emphysema type: centrilobular Qualified Code(s): J43.2 - Centrilobular emphysema Comment: severe (4) Essential hypertension: Status: Chronic (5) Type 2 diabetes mellitus: Status: Chronic (6) Hyperlipidemia: Status: Chronic Qualifiers: Hyperlipidemia type: pure hypercholesterolemia Qualified Code(s): E78.00 - Pure hypercholesterolemia, unspecified (7) Iron deficiency anemia: Status: Chronic Qualifiers: Iron deficiency anemia type: unspecified iron deficiency Qualified Code(s): D50.9 - Iron deficiency anemia, unspecified Comment: HGB is 10.3 today, Iron level is 104 today. Has improved after Iron Infusion. (8) HFrEF (heart failure with reduced ejection fraction): Status: Acute Orders: Orders Hemoglobin A1c Today R73.9 - Hyperglycemia, unspecified Plan Details Additional Comments: Patient presented as above. He will have labs done today for oncology. I have added on A1c. He will have oncology/hematology visit later today. He has been getting iron infusions for history of iron deficiency anemia. Last was about 3 months ago he states. He has no clear indication right now of any ongoing active GI blood loss. Relatively stable from a COPD and breathing standpoint asI can see right now. Does have some very coarse scattered rales with deep inspiration but otherwise no other major findings on lung exam. He will continue to follow with pulmonary medicine and cardiology as well. He has follow-up visit in December with cardiology at which point they can continue to discuss his diuretic. The only concern that he really expressed today was the frequency of urination through the day. Usually twice at night but during the day he urinates frequently. He takes a second dose of Bumex around suppertime. Perhaps his diuretic dosage could be decreased somewhat however I defer to cardiology. He will drop off blood sugar readings in 2 weeks so we can make adjustment in his insulin regimen. I will see him back in 4 months, sooner if needed. 40-minute visit Clinical Quality Measures Falls Risk Screening/Assistive Devices Have you fallen in the past year?: No 12/06/24 0954 <Electronically signed by Donna oleary MD> Date _ Donna Will MD Cosigner Signature: Date (if applicable) CC: ~ [facility] Work Phone: Progress note Author [facility] Services Note Date/Time December 06, 2024 1 1:24am [facility] [address] [address] OFFICE VISIT Date of Service: 12/06/24 1021 MR#: [id number] Acct: [id number] Name: SAL ALONZO Jr. Rep #: [id number] : 1950 From: Tobi Zapata MD Age/Sex: 74/M [facility] [facility] Status: Signed HPI Subjective Date of Service 12/06/24 Chief Complaint F/u for Iron deficiency anemia. History of Present Illness 74 y/o man with H/O Hodgkins lymphoma S/P [...] IV iron Injectafer on 07/17/2023 and 07/24/2023. Hegot Injectafer on 07/27/2024 and 08/03/2024. Iron profile improved. He is still on oral iron, comes for follow up. Feeling well. Denies blood in the stools. Interval History PFSH Medical History Acute and chronic respiratory failure with hypercapnia Type 2 MT (myocardial infarction) MRSA (methicillin resistant staph aureus) culture positive [...] cell carcinoma Atherosclerosis of coronary artery of crow heart without angina pectoris Pneumonia Non-Hodgkin lymphoma [...] exercise seatbelt use: always Intake Vital Signs 09/13/24 09:46 12/06/24 10:22 Height 5 ft 11 in 5 ft 11 in Weight: 98.656 kg BMI 30.3 BP 104/71 Blood Pressure Location Lt brachial Position Sitting Respiration 18 Pulse 82 Pulse Source Monitor Temp 97.5 F L Temperature Source Temporal Artery Pulse Oximetry (%) 97 Oxygen Delivery Method nasal canula Oxygen Flow Rate (L/min) 3 Intake Accompanied by: Self Is patient in pain?: No Allergies No Known Allergies Allergy (Verified 12/06/24 10:24) Medications ?Medication ?Instructions ?Recorded ?Confirmed ?Type finasteride 5 mg tablet 5 mg PO DAILY prostate 08/1412/06/24 History tamsulosin 0.4 mg capsule 0.4 mg PO QHS prostate 08/1412/06/24 History multivitamin 1 tab PO DAILY vitamin 09/1312/06/24 History mirtazapine 15 mg tablet (Remeron) 7.5 mg (1/2 x 15 mg ) PO QHS sleep 10/29/23 12/06/24 Rx #90 tabs needle (disp) 32 gauge 32 gauge x #100 ea 11/12/23 Rx 5/16 (Easy Touch Hypodermic Needle) pen needle, diabetic 32 gauge x #100 ea 12/03/2312/06 Rx 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 sensor (FreeStyle #1 ea 12/24/23 5 Rx Basilio 3 Sensor device) 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,sales support coordinator,cont #1 ea 12/24/23 12/06/24 Rx (FreeStyle Basilio 3 [place]) ferrous sulfate 325 mg (65 mg 325 mg PO QODAY Suppleme nt 04/05/24 12/06/24 History iron) tablet (FeroSul) insulin glargine-yfgn 100 unit/mL 20 unit (0.2 mL) sub cut BIDCM high 06/25/24 12/06/24 Rx (3 mL) subcutaneous pen blood glucose #15 mL cholecalciferol (vitamin D3) 50 50 mcg PO QDAY 5 12/06/24 History mcg (2,000 unit) capsule pantoprazole 40 mg tablet,delayed 40 mg PO DAILY 30 da ys #0 tabs 08/25/24 12/06/24 Rx release (Protonix) sennosides 8.6 mg-docusate sodium 2 tab PO BID PRN Con stipation #0 08/25/24 12/06/24 Rx 50 mg tablet (Stimulant Laxative tabs Plus) bumetanide 0.5 mg tablet 0.5 mg PO BID #180 tabs 08/2512/06/24 Rx insulin aspart U-100 100 unit/mL 13 unit subcut BID Hi gh Blood 09/16/24 12/06/24 Rx (3 mL) subcutaneous pen Glucose #15 mL albuterol sulfate 90 mcg/actuation 2 puff inhalation Q 6 PRN 09/24/24 12/06/24 History aerosol inhaler budesonide 1 mg/2 mL suspension 1 mg (2 mL) inhalation Q12H 09/24/24 12/06/24 Rx for nebulization wheezing/SOB #120 mL atorvastatin 40 mg tablet 40 mg PO QHS #90 tabs 12/06/24 Rx carvedilol 6.25 mg tablet 6.25 mg PO BID BP #180 tabs 10/08/24 12/06/24 Rx spironolactone 25 mg tablet 25 mg PO DAILY #90 tabs 12/06/24 Rx empagliflozin 10 mg tablet 10 mg PO DAILY #90 TABLETS 11/10/24 12/06/24 Rx (Jardiance) ipratropium 0.5 mg-albuterol 3 mg 3 ml inhalation Q4H PRN PRN SOB 11/26/2411/24 Rx (2.5 mg base)/3 mL nebulization &/OR WHEEZING #270 mL soln escitalopram oxalate 10 mg tablet 10 mg PO DAILY mood 90 days #90 11/29/24 12/06/24 Rx tabs Have you fallen in the past year?: No Central Venous Access Central Venous Access: No Microbiology 11/25/24 13:16 Stool Stool Occult Blood (FOREST) - Final Occult Blood Positive 07/29/22 11:02 Stool Stool Occult Blood (FOREST) - Final Occult Blood Positive Laboratory Tests 10/02/21 12/26/21 02/05/22 06:04 13:52 10:43 WBC 8.0 8.5 11.4 H Hgb 8.0 L 8.4 L 10.8 L Hct 25.9 L 26.3 L 34.9 L MCV 89.3 Plt Count 278 221 355 Absolute Neuts (auto) 4.4 Absolute Lymphs (auto) Sodium 141 Potassium 4.3 Chloride 109 H [...] Count 398 202 267 Absolute Neuts (auto) Absolute Lymphs (auto) Sodium 141 Potassium 4.5 Chloride 109 H Carbon Dioxide 24.0 BUN 30 H Creatinine 1.31 H Glucose 209 H Calcium 9.3 Iron 38 L 98 TIBC 285 Iron Saturation 14.8 L 34.4 Ferritin 203 38 Total Bilirubin AST 9 L ALT 15 L Alkaline Phosphatase 82 Lactate Dehydrogenase 223 Total Protein 7.4 Albumin 3.2 Globulin 4.2 Vitamin B12 Folate 1001/21/23 05/28/23 14:35 13:20 10:28 WBC 5.8 11.0 7.4 Hgb 9.0 L 7.4 L 8.5 L Hct 29.7 L 24.4 L 28.5 L MCV Plt Count 233 446 210 Absolute Neuts (auto) Absolute Lymphs (auto) Sodium 141 Potassium 4.6 Chloride 107 [...] 242 202 245 Absolute Neuts (auto) 6.0 Absolute Lymphs (auto) Sodium Potassium Chloride Carbon Dioxide BUN [...] Plt Count 353 199 Absolute Neuts (auto) Absolute Lymphs (auto) Sodium Potassium Chloride Carbon Dioxide BUN Creatinine 1.47 H Glucose Calcium Iron 62 L 37 L TIBC 254 Iron Saturation 24.4 16.8 Ferritin 80 137 Total Bilirubin AST ALT Alkaline Phosphatase Lactate Dehydrogenase Total Protein Albumin Globulin Vitamin B12 Folate 09/13/24 12/06/24 08:57 09:28 WBC 10.2 11.2 H Hgb 10.3 L 10.1 L Hct 31.9 L 30.9 L MCV Plt Count 250 282 Absolute Neuts (auto) 6.2 Absolute Lymphs (auto) 2.80 Sodium Potassium Chloride Carbon Dioxide BUN Creatinine Glucose Calcium Iron 98 TIBC Iron Saturation 38.2 Ferritin 247 Total Bilirubin AST ALT Alkaline Phosphatase Lactate Dehydrogenase Total Protein Albumin Globulin Vitamin B12 Folate Exam Physical Exam Narrative Sitting in a wheelchair. On home O2. Const alert, oriented x3 and no apparent distress HEENT normocephalic, external ears normal and external nose normal Eyes PERRL, EOMs intact bilaterally and conjunctivae normal Neck supple Lymph Lymphatic: no lymphadenopathy noted Resp normal respiratory effort and clear to auscultation bilaterally Cardio regular rate, regular rhythm, S1 normal heart sound and S2 normal heart sound Coding Level of Care Code Off vis,est,level 4 Exam Problem Focused Diagnoses Iron deficiency anemia, unspecified iron deficiency anemia type D50.9 Iron deficiency anemia type: unspecified iron deficiency Guaiac positive stools R19.5 Assessment and Plan Assessment and Plan (1) Iron deficiency anemia: Status: Chronic Qualifiers: Iron deficiency anemia type: unspecified iron deficiency Qualified Code(s): D50.9 - Iron deficiency anemia, unspecified Comment: HGB is 10.1 today, Iron profile is normal. Has improved after Iron Infusion. Stool for occult blood on 11/25/2024 is positive. Plan: To continue oral iron. To obtain follow up with GI. (2) Guaiac positive stools: Status: Acute Plan: To obtain GI consult/Follow up for endoscopy. Plan Details Follow Up: 3 Months Clinical Quality Measures Falls Risk Screening/Assistive Devices Have you fallen in the past year?: No 12/06/24 1124 <Electronically signed by Tobi Panchal> Date _ Tobi Zapata MD Cosigner Signature: Date (if applicable) CC: Dr. Donna Will MD ~ [facility] [employer] Work Phone: Summary Purpose Family History Relationship Condition Age at Onset Recorded Date/T ada father Arthritis Unknown Hemorrhagic disorder Unknown Hypertension Unknown Kidney disorder Unknown Malignant neoplasm Unknown Anemia Unknown Unknown Pulmonary emphysema Unknown mother Malignant neoplasm of colon Unknown Diabetes mellitus Unknown brother Disorder of thyroid Unknown Advance Directives Advance Directive Response Recorded Date/ Time Advance Directives No March 14, 2021 5:03pm Living Will No May 07, 2021 5:39pm Power of Quality Assurance Calibrator No May 07 5:39pm Advance Directive Response Recorded Date/ Time Advance Directives No July 24 8:49am Living Will No July 24, 2021 8 :49am Power of Quality Assurance Calibrator No July 24, 2021 8:49am Advance Directive Response Recorded Date/ Time Advance Directives No July 24 8:49am Living Will No August 06, 2021 12:10pm Power of Quality Assurance Calibrator No August 06 12:10pm Advance Directive Response Recorded Date/ Time Advance Directives No July 24 8:49am Living Will No August 06, 2021 4:39pm Power of Quality Assurance Calibrator Yes August 06 4:39pm Advance Directive Response Recorded Date/ Time Name of Medical Power of Quality Assurance Calibrator Freida Cheri August 06, 2021 4:39pm Advance Directives No July 24 8:49am Living Will No August 06, 2021 4:39pm Power of Quality Assurance Calibrator Yes August 06 4:39pm Advance Directive Response Recorded Date/ Time Name of Medical Power of Quality Assurance Calibrator Freida Cheri August 06, 2021 4:39pm Advance Directives No July 24 8:49am Living Will No October 01, 2021 2:51pm Power of Quality Assurance Calibrator No October 01 2:51pm Advance Directive Response Recorded Date/ Time Name of Medical Power of Quality Assurance Calibrator Freida Cheri August 06, 2021 4:39pm Name of Medical Power of Quality Assurance Calibrator Freida Cheri October 01, 2021 7:57pm Advance Directives No July 24 8:49am Living Will Yes October 01, 2021 7:57pm Power of Quality Assurance Calibrator Yes October 01 7:57pm Advance Directive Response Recorded Date/ Time Name of Medical Power of Quality Assurance Calibrator Freida Cheri August 06, 2021 4:39pm Name of Medical Power of Quality Assurance Calibrator Freida Cheri October 01, 2021 7:57pm Name of Medical Power of Quality Assurance Calibrator freida armando October 23, 2021 2:40pm Advance Directives No July 24 8:49am Living Will Yes October 23 2:40pm Power of Quality Assurance Calibrator Yes October 23 2:40pm Advance Directive Response Recorded Date/ Time Name of Medical Power of Quality Assurance Calibrator Freida Cheri October 01, 2021 7:57pm Name of Medical Power of Quality Assurance Calibrator freidabinh roberts October 23, 2021 2:40pm Name of Medical Power of Quality Assurance Calibrator FREIDA CHERI December 08, 2021 5:32pm Advance Directives No July 24 8:49am Living Will Yes December 08 5:32pm Power of Quality Assurance Calibrator Yes December 08, 2021 5:32pm Advance Directive Response Recorded Date/ Time Name of Medical Power of Quality Assurance Calibrator Freida Cheri October 01, 2021 7:57pm Name of Medical Power of Quality Assurance Calibrator freida [email or web address] October 23, 2021 2:40pm Name of Medical Power of Quality Assurance Calibrator FREIDA CHERI December 08, 2021 8:10pm Advance Directives No July 24 8:49am Living Will Yes December 08 8:10pm Power of Quality Assurance Calibrator Yes December 08, 2021 8:10pm Advance Directive Response Recorded Date/ Time Name of Medical Power of Quality Assurance Calibrator Freidabinh Alonzo October 01, 2021 6:57pm Name of Medical Power of Quality Assurance Calibrator freida roberts October 23, 2021 1:40pm Name of Medical Power of Quality Assurance Calibrator FREIDA CHERI December 08, 2021 7:10pm Advance Directives No July 24 7:49am Living Will Yes December 08 7:10pm Power of Quality Assurance Calibrator Yes December 08, 2021 7:10pm Advance Directive Response Recorded Date/ Time Name of Medical Power of Quality Assurance Calibrator freida armando October 23, 2021 1:40pm Name of Medical Power of Quality Assurance Calibrator FREIDA CHERI December 08, 2021 7:10pm Name of Medical Power of Quality Assurance Calibrator joseph alonzo February 14, 2022 4:33pm Advance Directives No July 24 7:49am Living Will Yes February 14 4:33pm Power of Quality Assurance Calibrator Yes February 14, 2022 4:33pm Advance Directive Response Recorded Date/ Time Name of Medical Power of Quality Assurance Calibrator freida roberts October 23, 2021 1:40pm Name of Medical Power of Quality Assurance Calibrator FREIDA ALONZO December 08, 2021 7:10pm Name of Medical Power of Quality Assurance Calibrator freida alonzo February 14, 2022 10:48pm Advance Directives No July 24 7:49am Living Will No February 14 10:48pm Power of Quality Assurance Calibrator Yes February 14, 2022 10:48pm Advance Directive Response Recorded Date/ Time Name of Medical Power of Quality Assurance Calibrator FREIDA ALONZO December 08, 2021 7:10pm Name of Medical Power of Quality Assurance Calibrator freida alonzo February 14, 2022 10:48pm Advance Directives No July 24 7:49am Living Will No February 14 10:48pm Power of Quality Assurance Calibrator Yes February 14, 2022 10:48pm Advance Directive Response Recorded Date/ Time Name of Medical Power of Quality Assurance Calibrator freida alonzo February 14, 2022 11:48pm Advance Directives No July 24 8:49am Living Will No February 14 11:48pm Power of Quality Assurance Calibrator Yes February 14, 2022 11:48pm Advance Directive Response Recorded Date/ Time Advance Directives No July 24 8:49am Living Will No February 14 11:48pm Power of Quality Assurance Calibrator Yes February 14, 2022 11:48pm Advance Directive Response Recorded Date/ Time Advance Directives No August 08 3:27pm Living Will No August 29, 2022 4 :36pm Power of Quality Assurance Calibrator No August 29, 2022 4:36pm Advance Directive Response Recorded Date/ Time Name of Medical Power of Quality Assurance Calibrator November 15, 2022 3:27pm Advance Directives No August 08 3:27pm Living Will No November 15, 2022 3:27pm Power of Quality Assurance Calibrator Yes October 3:27pm Advance Directive Response Recorded Date/ Time Name of Medical Power of Quality Assurance Calibrator -Freida Romero November 15, 2022 8:16pm Advance Directives No August 08 3:27pm Living Will No November 15, 2022 8:16pm Power of Quality Assurance Calibrator Yes October 8:16pm Advance Directive Response Recorded Date/ Time Name of Medical Power of Quality Assurance Calibrator -Freida Romero November 15, 2022 7:16pm Advance Directives No August 08 2:27pm Living Will No November 15, 2022 7:16pm Power of Quality Assurance Calibrator Yes October 7:16pm Advance Directive Response Recorded Date/ Time Name of Medical Power of Quality Assurance Calibrator -Freida Romero November 15, 2022 7:16pm Advance Directives No August 08 2:27pm Living Will No February 28 11:16am Power of Quality Assurance Calibrator No February 28, 024 11:16am Advance Directive Response Recorded Date/ Time Name of Medical Power of Quality Assurance Calibrator -Freida Romero November 15, 2022 7:16pm Advance Directives No August 08 2:27pm Living Will No February 28 5:08pm Power of Quality Assurance Calibrator No February 28, 024 5:08pm Advance Directive Response Recorded Date/ Time Name of Medical Power of Quality Assurance Calibrator -Freida Romero November 15, 2022 7:16pm Name of Medical Power of Quality Assurance Calibrator freida March 16, 2023 1:59pm Advance Directives No August 08 2:27pm Living Will Yes March 16 1:59pm Power of Quality Assurance Calibrator Yes March 16, 2023 1:59pm Advance Directive Response Recorded Date/ Time Name of Medical Power of Quality Assurance Calibrator freida March 16, 2023 1:59pm Advance Directives No August 08 2:27pm Living Will No March 16 5:33pm Power of Quality Assurance Calibrator No March 16, 2023 5:33pm Advance Directive Response Recorded Date/ Time Name of Medical Power of Quality Assurance Calibrator freida March 16, 2023 2:59pm Advance Directives No August 08 3:27pm Living Will No March 16 6:33pm Power of Quality Assurance Calibrator No March 16, 2023 6:33pm Advance Directive Response Recorded Date/ Time Living Will No March 16 6:33pm Do you have a Healthcare Power of Quality Assurance Calibrator? No March 16, 2023 6:33pm Living Will No November 14, 2023 9:10pm Do you have a Healthcare Power of Quality Assurance Calibrator? No November 14, 2023 9:10pm Living Will No April 05, 025 10:43pm Do you have a Healthcare Power of Quality Assurance Calibrator? Yes April 05, 2024 10:43pm Name of Medical Power of Quality Assurance Calibrator Ray Alonzo April 05, 2024 10:43pm Do you have a Healthcare Power of Quality Assurance Calibrator? Yes June 20, 2024 8:00pm Name of Medical Power of Quality Assurance Calibrator ray alonzo June 20, 2024 8:00pm Advance Directives No August 08 3:27pm Advance Directive Response Recorded Date/ Time Living Will No March 16 6:33pm Do you have a Healthcare Power of Quality Assurance Calibrator? No March 16, 2023 6:33pm Living Will No April 05, 025 10:43pm Do you have a Healthcare Power of Quality Assurance Calibrator? Yes April 05, 2024 10:43pm Name of Medical Power of Quality Assurance Calibrator Ray Alonzo April 05, 2024 10:43pm Do you have a Healthcare Power of Quality Assurance Calibrator? No July 08, 2024 12:44pm Do you have a Healthcare Power of Quality Assurance Calibrator? Yes June 20, 2024 8:00pm Name of Medical Power of Quality Assurance Calibrator ray alonzo June 20, 2024 8:00pm Advance Directives No August 08 3:27pm Advance Directive Response Recorded Date/ Time Living Will No March 16 6:33pm Do you have a Healthcare Power of Quality Assurance Calibrator? No March 16, 2023 6:33pm Do you have a Healthcare Power of Quality Assurance Calibrator? No July 08, 2024 12:44pm Do you have a Healthcare Power of Quality Assurance Calibrator? Yes August 21, 2024 10:52am Do you have a Healthcare Power of Quality Assurance Calibrator? Yes June 20, 2024 8:00pm Name of Medical Power of Quality Assurance Calibrator ray alonzo June 20, 2024 8:00pm Advance Directives No August 08 3:27pm Advance Directive Response Recorded Date/ Time Living Will No March 16 6:33pm Do you have a Healthcare Power of Quality Assurance Calibrator? No March 16, 2023 6:33pm Do you have a Healthcare Power of Quality Assurance Calibrator? No July 08, 2024 12:44pm Do you have a Healthcare Power of Quality Assurance Calibrator? Yes August 21, 2024 2:04pm Do you have a Healthcare Power of Quality Assurance Calibrator? Yes June 20, 2024 8:00pm Name of Medical Power of Quality Assurance Calibrator ray alonzo June 20, 2024 8:00pm Advance Directives No August 08 3:27pm Advance Directive Response Recorded Date/ Time Living Will No March 16 6:33pm Do you have a Healthcare Power of Quality Assurance Calibrator? No March 16, 2023 6:33pm Do you have a Healthcare Power of Quality Assurance Calibrator? Yes August 21, 2024 2:04pm Advance Directives No August 08 3:27pm Chief [...] ENCEPHALOPATHY ACUTE METABOLIC ENCEPHALOPATHY ACUTE METABOLIC ENCEPHALOPATHY [facility] FU hyperglycemmia ftt adult ftt adult ftt [...] Hypoxia COVID-19 Atherosclerosis of coronary artery of crow heart without angina pectoris Hyperlipidemia Acute hypoxemic respiratory failure due to COVID-19 Acute alteration in mental status Acute respiratory failure with hypoxia Hypoxemia Pneumonia Pneumonia Asthma Atherosclerosis of coronary artery of crow heart without angina pectoris Chronic bronchitis History [...] Hypoxia COVID-19 Atherosclerosis of coronary artery of crow heart without angina pectoris Hyperlipidemia Acute hypoxemic respiratory failure due to COVID-19 Acute alteration in mental status Acute respiratory failure with hypoxia Hypoxemia Pneumonia Pneumonia Asthma Atherosclerosis of coronary artery of crow heart without angina pectoris Chronic bronchitis History [...] Pneumonia Asthma Atherosclerosis of coronary artery of crow heart without angina pectoris Chronic bronchitis History [...] Pneumonia Asthma Atherosclerosis of coronary artery of crow heart without angina pectoris Chronic bronchitis History [...] Pneumonia Asthma Atherosclerosis of coronary artery of crow heart without angina pectoris Chronic bronchitis History [...] Hypoxia Leukocytosis Atherosclerosis of coronary artery of crow heart without angina pectoris Essential hypertension Hyperlipidemia [...] Hypoxia Leukocytosis Atherosclerosis of coronary artery of crow heart without angina pectoris Essential hypertension Hyperlipidemia [...] Hypoxia Leukocytosis Atherosclerosis of coronary artery of crow heart without angina pectoris Essential hypertension Hyperlipidemia [...] ALSO ORDERS FROM DR ZAPATA [facility] Reason for Visit Iron deficiency anem ia Swelling of lower extremity Hypoxia Leukocytosis Pneumonia Atherosclerosis of coronary artery of crow heart without angina pectoris Essential hypertension Hyperlipidemia [...] [facility] [id number] Reason for Visit Hypoxia Leukocytosis Pneumonia Atherosclerosis of coronary artery of crow heart without angina pectoris Essential hypertension Hyperlipidemia [...] FROM DR ZAPATA [facility] [id number] BILATERAL PNEUMONIA Reason [...] FROM DR ZAPATA [facility] [id number] BILATERAL PNEUMONIA BILATERAL [...] FROM DR ZAPATA [facility] [id number] BILATERAL PNEUMONIA BILATERAL [...] FROM DR ZAPATA [facility] [id number] [facility] BILATERAL PNEUMONIA BILATERAL [...] in remission Atherosclerosis of coronary artery of crow heart without angina pectoris Chronic hypoxemic respiratory [...] in remission Atherosclerosis of coronary artery of [place] heart without angina pectoris Chronic hypoxemic respiratory failure COPD (chronic obstructive pulmonary disease) Essential hypertension GI bleed Iron deficiency anemia Obesity Type 2 diabetes mellitus Anemia Iron deficiency anemia 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 Atherosclerosis of coronary artery of [place] heart without angina pectoris Essential hypertension Hyperlipidemia [...] in remission Atherosclerosis of coronary artery of [place] heart without angina pectoris Chronic hypoxemic respiratory failure COPD (chronic obstructive pulmonary disease) Essential hypertension GI bleed Iron deficiency anemia Obesity Type 2 diabetes mellitus Anemia Iron deficiency anemia 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 Atherosclerosis of coronary artery of [place] heart without angina pectoris Essential hypertension Hyperlipidemia [...] Heart failure Atherosclerosis of coronary artery of [place] heart without angina pectoris Chronic kidney disease [...] Heart failure Atherosclerosis of coronary artery of [place] heart without angina pectoris Chronic kidney disease [...] Heart failure Atherosclerosis of coronary artery of [place] heart without angina pectoris Chronic kidney disease [...] Heart failure Atherosclerosis of coronary artery of [place] heart without angina pectoris Chronic kidney disease [...] BLEED SEVERE ACUTE ON CHRONIC ANEMIA/GI BLEED [facility] Discharge FU Reason for Visit Anemia Iron [...] BLEED SEVERE ACUTE ON CHRONIC ANEMIA/GI BLEED [facility] Discharge FU [facility] Reason for Visit [...] BLEED SEVERE ACUTE ON CHRONIC ANEMIA/GI BLEED [facility] Discharge FU [facility]WORK 1 M [...] ejection fraction) Atherosclerosis of coronary artery of [place] heart without angina pectoris Essential hypertension History [...] BLEED SEVERE ACUTE ON CHRONIC ANEMIA/GI BLEED [facility] Discharge FU [facility]WORK 1 M [...] therapy Chief Complaint Admit Date 3 M FU March 03, 2024 9: 52am 5 M FU March 05, 2024 1 2:53pm 6 M FU March 16, 2024 1 [...] 9:29am STANDING ORDWER WEEKLY BMP, CBC [facility] June 28, 2024 10:04am ACTIVASE June 29, 2024 9:43am Reason for Visit Admit Date Bronchiectasis March 05, 2024 1 2:53pm Chronic hypoxemic respiratory failure [facility] 2024 12:53pm COPD (chronic obstructive pulmonary dise [...] 2:1 4pm Chronic hypoxemic respiratory failure [facility] 2024 2:14pm COPD (chronic obstructive pulmonary dise ase) May 18, 2024 2:14pm Nicotine dependence, cigarettes, in gurvinder ssion May 18, 2024 2:14pm Acute alteration in mental status June 20, 2024 6:06pm Acute and chronic respiratory failure wi th hypoxia June 20, 2024 6:06pm MRSA bacteremia June 20, 2024 6:0 6pm Sepsis June 20, 2024 6:0 6pm Claudication, intermittent June 20, 2 025 6:06pm PAD (peripheral artery disease) June 202024 6:06pm Chief Complaint Admit Date 6 M FU March 16, 2024 1 1:35am PNEUMONIA, AE COPD, SEPSIS AND ANEMIA WI TH GUAIAC April 05, 2024 8:20pm PNEUMONIA, AE COPD, SEPSIS AND ANEMIA WI TH GUAIAC April 06, 2024 7:48am PNEUMONIA, AE COPD, SEPSIS AND ANEMIA WI TH GUAIAC April 06, 2024 10:41am PNEUMONIA, AE COPD, SEPSIS AND ANEMIA WI TH GUAIAC April 06, 2024 4:34pm PNEUMONIA, AE COPD, SEPSIS AND ANEMIA WI TH GUAIAC April 07, 2024 7:49am PNEUMONIA, AE [...] 2024 2:1 4pm Chronic hypoxemic respiratory failure [facility] 2024 2:14pm COPD (chronic obstructive pulmonary dise [facility]) May 18, 2024 2:14pm Nicotine dependence, cigarettes, [...] 9:29am STANDING ORDWER WEEKLY BMP, CBC [facility] June 28, 2024 10:04am ACTIVASE June 29, [...] 2024 2:1 4pm Chronic hypoxemic respiratory failure [facility] 2024 2:14pm COPD (chronic obstructive pulmonary dise ase) May 18, 2024 2:14pm Nicotine dependence, cigarettes, in gurvinder ssion May 18, 2024 2:14pm MRSA bacteremia June 20, 2024 6:0 6pm Acute alteration in mental status June 20, 2024 6:06pm Acute and chronic respiratory failure wi hypoxia June 20, 2024 6:06pm Sepsis June 20, 2024 6:0 6pm Claudication, intermittent June 20, 025 6:06pm PAD (peripheral artery disease) June [...] :18pm LABS July 27, 2024 1:00p m Chief Complaint Admit Date 3MO LABS April 27, 2024 1:14 pm [...] di sease, uns July 12, 2024 9:44am J44.9 - Chronic obstructive pulmonary di sease, uns July 12, 2024 9:51am Nicotine dependence, cigarettes, uncompl icated July 12, 2024 10:12am STANDING ORDWER WEEKLY BMP, CBC [facility] July 14, 2024 12:30pm 12W[facility] LABS July 20, 2024 1:32p m LABSPEC DROP OFF EORDER July 23, 2024 1 :18pm LABS August 03, 2024 1:00 pm ACUTE ON CHR HYPOXIC FAILURE August 21, 2024 12:12pm ACUTE ON CHR HYPOXIC FAILURE August 21, 2024 12:23pm Reason for Visit Admit Date Iron deficiency anemia April 27, 2024 1 :14pm 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 April 27, 2024 1:14pm Bronchiectasis May 18, 2024 2:1 4pm Chronic hypoxemic respiratory failure [facility] 2024 2:14pm COPD (chronic obstructive pulmonary dise [...] iro n therapy July 20, 2024 1:32pm Anemia, macrocytic August 21, 2024 12:1 2pm Dyspnea on exertion August 21, 2024 12:1 2pm Type 2 MT (myocardial infarction) July 262024 12:12pm Acute and chronic respiratory failure wi th hypercapnia August 21, 2024 12:12pm CHF exacerbation August 21, 2024 12:1 2pm Chronic kidney disease (CKD) August 21, 2024 12:12pm Acute on chronic hypoxic respiratory tanmay lure August 21, 2024 12:12pm Chief Complaint Admit Date 3MO LABS April 27, 2024 1:14 pm [...] di sease, uns July 12, 2024 9:44am J44.9 - Chronic obstructive pulmonary di sease, uns July 12, 2024 9:51am Nicotine dependence, cigarettes, uncompl icated July 12, 2024 10:12am STANDING ORDWER WEEKLY BMP, CBC [facility] July 14, 2024 12:30pm 12[facility] July 20, 2024 1:32p m LABSPEC DROP OFF EORDER July 23, 2024 1 :18pm LABS August 03, 2024 1:00 pm ACUTE ON CHR HYPOXIC FAILURE August 21, 2024 12:12pm ACUTE ON CHR HYPOXIC FAILURE August 21, 2024 12:23pm ACUTE ON CHR HYPOXIC FAILURE August 22, 2024 7:55am ACUTE ON CHR HYPOXIC FAILURE August 23, 2024 8:04am ACUTE ON CHR HYPOXIC FAILURE August 24 025 11:52am ACUTE ON CHR HYPOXIC FAILURE August 25 025 3:03pm Chief Complaint Admit Date 8 WK FU May 18, 2024 2:1 [...] di sease, uns July 12, 2024 9:44am J44.9 - Chronic obstructive pulmonary di sease, uns July 12, 2024 9:51am Nicotine dependence, cigarettes, uncompl icated July 12, 2024 10:12am STANDING ORDWER WEEKLY BMP, CBC [facility] July 14, 2024 12:30pm [facility] July 20, 2024 1:32p m LABSPEC DROP OFF EORDER July 23, 2024 1 :18pm ACUTE ON CHR HYPOXIC FAILURE August 21, 2024 12:12pm ACUTE ON CHR HYPOXIC FAILURE August 21, 2024 12:23pm ACUTE ON CHR HYPOXIC FAILURE August 22, 2024 7:55am ACUTE ON CHR HYPOXIC FAILURE August 23, 2024 8:04am ACUTE ON CHR HYPOXIC FAILURE August 24, 2 025 11:52am ACUTE ON CHR HYPOXIC FAILURE August 25, 2 025 3:03pm LABS September 13, 2024 8:45 am [facility]S September 13, 2024 8:50 am Reason for Visit Admit Date Bronchiectasis May 18, 2024 2:1 4pm Chronic hypoxemic respiratory failure [facility] 2024 2:14pm COPD (chronic obstructive pulmonary dise [...] iro n therapy July 20, 2024 1:32pm Anemia, macrocytic August 21, 2024 12:1 2pm Dyspnea on exertion August 21, 2024 12:1 2pm CHF exacerbation August 21, 2024 12:1 2pm Chronic kidney disease (CKD) August 21, 2024 12:12pm Acute and chronic respiratory failure wi th hypercapnia August 21, 2024 12:12pm Type 2 MT (myocardial infarction) July 262024 12:12pm Acute on chronic hypoxic respiratory tanmay lure August 21, 2024 12:12pm Iron deficiency anemia September 13, 2024 8 :50am 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 September 13, 2024 8:50am Chief Complaint Admit Date SUSPECT SEPSIS SECONDARY TO SUSPECTED PN EUMONIA [...] di sease, uns July 12, 2024 9:44am J44.9 - Chronic obstructive pulmonary di sease, uns July 12, 2024 9:51am Nicotine dependence, cigarettes, uncompl icated July 12, 2024 10:12am STANDING ORDWER WEEKLY BMP, CBC [facility] July 14, 2024 12:30pm 12[facility] LABS July 20, 2024 1:32p m LABSPEC DROP OFF EORDER July 23, 2024 1 :18pm ACUTE ON CHR HYPOXIC FAILURE August 21, 2024 12:12pm ACUTE ON CHR HYPOXIC FAILURE August 21, 2024 12:23pm ACUTE ON CHR HYPOXIC FAILURE August 22, 2024 7:55am ACUTE ON CHR HYPOXIC FAILURE August 23, 2024 8:04am ACUTE ON CHR HYPOXIC FAILURE August 24, 025 11:52am ACUTE ON CHR HYPOXIC FAILURE August 25 025 3:03pm LABS September 13, 2024 8:45 am [facility] LABS September 13, 2024 8:50 am [facility] Discharge FU September 16, 2024 10:0 0am Reason for Visit Admit Date MRSA bacteremia June 20, 2024 6:0 6pm Acute alteration in mental status June 20, 2024 6:06pm Acute and chronic respiratory failure wi th hypoxia June 20, 2024 6:06pm Sepsis June 20, 2024 6:0 6pm Claudication, intermittent June 20 025 6:06pm PAD (peripheral artery disease) June 202024 6:06pm Iron deficiency anemia July 20, 2024 1: 32pm 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 July 20, 2024 1:32pm Anemia, macrocytic August 21, 2024 12:1 2pm Dyspnea on exertion August 21, 2024 12:1 2pm Acute and chronic respiratory failure th hypercapnia August 21, 2024 12:12pm CHF exacerbation August 21, 2024 12:1 2pm Chronic kidney disease (CKD) August 21, 2024 12:12pm Type 2 MT (myocardial infarction) July 262024 12:12pm Acute on chronic hypoxic respiratory tanmay lure August 21, 2024 12:12pm Iron deficiency anemia September 13, 2024 8 :50am 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 September 13, 2024 8:50am Chief Complaint Admit Date SUSPECT SEPSIS SECONDARY TO SUSPECTED PN EUMONIA [...] di sease, uns July 12, 2024 9:44am J44.9 - Chronic obstructive pulmonary di sease, uns July 12, 2024 9:51am Nicotine dependence, cigarettes, uncompl icated July 12, 2024 10:12am STANDING ORDWER WEEKLY BMP, CBC [facility]ANC THR OUGH July 14, 2024 12:30pm [facility] July 20, 2024 1:32p m LABSPEC DROP OFF EORDER July 23, 2024 1 :18pm ACUTE ON CHR HYPOXIC FAILURE August 21, 2024 12:12pm ACUTE ON CHR HYPOXIC FAILURE August 21, 2024 12:23pm ACUTE ON CHR HYPOXIC FAILURE August 22, 2024 7:55am ACUTE ON CHR HYPOXIC FAILURE August 23, 2024 8:04am ACUTE ON CHR HYPOXIC FAILURE August 24, 025 11:52am ACUTE ON CHR HYPOXIC FAILURE August 25 025 3:03pm LABS September 13, 2024 8:45 am [facility] September 13, 2024 8:50 am [facility] Discharge FU September 16, 2024 10:0 0am Hospital FU September 24, 2024 10: 12am Reason for Visit Admit Date MRSA bacteremia June 20, 2024 6:0 6pm [...] iro n therapy July 20, 2024 1:32pm Anemia, macrocytic August 21, 2024 12:1 2pm Dyspnea on exertion August 21, 2024 12:1 2pm Acute and chronic respiratory failure wi th hypercapnia August 21, 2024 12:12pm CHF exacerbation August 21, 2024 12:1 2pm Chronic kidney disease (CKD) August 21, 2024 12:12pm Type 2 MT (myocardial infarction) July 262024 12:12pm Acute on chronic hypoxic respiratory tanmay lure August 21, 2024 12:12pm Iron deficiency anemia September 13, 2024 8 :50am 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 September 13, 2024 8:50am Chronic iron deficiency anemia August 10:00am HFrEF (heart failure with reduced ejecti on fraction) September 16, 2024 10:00am Pleural effusion on right September 16 10:00am Acute and chronic respiratory failure wi th hypercapnia September 16, 2024 10:00am CHF exacerbation September 16, 2024 10:0 0am Essential hypertension September 16, 2024 1 0:00am History of COPD September 16, 2024 10:0 0am Type 2 diabetes mellitus September 16, 2024 10:00am Reason for Visit Admit Date MRSA bacteremia June 20, 2024 6:0 6pm [...] iro n therapy July 20, 2024 1:32pm Anemia, macrocytic August 21, 2024 12:1 2pm Dyspnea on exertion August 21, 2024 12:1 2pm Acute and chronic respiratory failure wi th hypercapnia August 21, 2024 12:12pm CHF exacerbation August 21, 2024 12:1 2pm Chronic kidney disease (CKD) August 21, 2024 12:12pm Type 2 MT (myocardial infarction) July 262024 12:12pm Acute on chronic hypoxic respiratory tanmay lure August 21, 2024 12:12pm Iron deficiency anemia September 13, 2024 8 :50am 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 September 13, 2024 8:50am Chronic iron deficiency anemia August 10:00am HFrEF (heart failure with reduced ejecti on fraction) September 16, 2024 10:00am Pleural effusion on right September 16 10:00am Acute and chronic respiratory failure wi th hypercapnia September 16, 2024 10:00am CHF exacerbation September 16, 2024 10:0 0am Essential hypertension September 16, 2024 1 0:00am History of COPD September 16, 2024 10:0 0am Type 2 diabetes mellitus September 16, 2024 10:00am Bronchiectasis September 24, 2024 10: 12am Daytime hypersomnia September 24, 2024 10: 12am Chronic hypoxemic respiratory failure [facility] 2024 10:12am COPD (chronic obstructive pulmonary dise ase) September 24, 2024 10:12am Nicotine dependence, cigarettes, in gurvinder ssion September 24, 2024 10:12am Chief Complaint Admit Date SUSPECT SEPSIS SECONDARY TO SUSPECTED PN EUMONIA [...] di sease, uns July 12, 2024 9:44am J44.9 - Chronic obstructive pulmonary di sease, uns July 12, 2024 9:51am Nicotine dependence, cigarettes, uncompl icated July 12, 2024 10:12am STANDING ORDWER WEEKLY BMP, CBC [facility] July 14, 2024 12:30pm [facility] LAB[facility] July 20, 2024 1:32p m LABSPEC DROP OFF EORDER July 23, 2024 1 :18pm ACUTE ON CHR HYPOXIC FAILURE August 21, 2024 12:12pm ACUTE ON CHR HYPOXIC FAILURE August 21, 2024 12:23pm ACUTE ON CHR HYPOXIC FAILURE August 22, 2024 7:55am ACUTE ON CHR HYPOXIC FAILURE August 23, 2024 8:04am ACUTE ON CHR HYPOXIC FAILURE August 24, 025 11:52am ACUTE ON CHR HYPOXIC FAILURE August 25 025 3:03pm LABS September 13, 2024 8:45 am [facility] September 13, 2024 8:50 am [facility] Discharge September 16, 2024 10:0 0am Hospital September 24, 2024 10: 12am 6 M October 08, 2024 8: 25am Reason for Visit Admit Date MRSA bacteremia June 20, 2024 6:0 6pm Acute alteration in mental status June 20, 2024 6:06pm Acute and chronic respiratory failure wi th hypoxia June 20, 2024 6:06pm Sepsis June 20, 2024 6:0 6pm Claudication, intermittent June 20, 025 6:06pm PAD (peripheral artery disease) June 202024 6:06pm Iron deficiency anemia July 20, 2024 1: 32pm 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 July 20, 2024 1:32pm Anemia, macrocytic August 21, 2024 12:1 2pm Dyspnea on exertion August 21, 2024 12:1 2pm Acute and chronic respiratory failure wi th hypercapnia August 21, 2024 12:12pm CHF exacerbation August 21, 2024 12:1 2pm Chronic kidney disease (CKD) August 21, 2024 12:12pm Type 2 MT (myocardial infarction) July 262024 12:12pm Acute on chronic hypoxic respiratory tanmay lure August 21, 2024 12:12pm Iron deficiency anemia September 13, 2024 8 :50am 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 September 13, 2024 8:50am Chronic iron deficiency anemia August 10:00am HFrEF (heart failure with reduced ejecti on fraction) September 16, 2024 10:00am Pleural effusion on right September 16 10:00am Acute and chronic respiratory failure wi th hypercapnia September 16, 2024 10:00am CHF exacerbation September 16, 2024 10:0 0am Essential hypertension September 16, 2024 1 0:00am History of COPD September 16, 2024 10:0 0am Type 2 diabetes mellitus September 16, 2024 10:00am Bronchiectasis September 24, 2024 10: 12am Daytime hypersomnia September 24, 2024 10: 12am Chronic hypoxemic respiratory failure [facility] 2024 10:12am COPD (chronic obstructive pulmonary dise ase) September 24, 2024 10:12am Nicotine dependence, cigarettes, in gurvinder ssion September 24, 2024 10:12am Chronic kidney disease (CKD) September 8:25am Chief Complaint Admit Date SUSPECT SEPSIS SECONDARY TO SUSPECTED PN EUMONIA [...] di sease, uns July 12, 2024 9:44am J44.9 - Chronic obstructive pulmonary di sease, uns July 12, 2024 9:51am Nicotine dependence, cigarettes, uncompl icated July 12, 2024 10:12am STANDING ORDWER WEEKLY BMP, CBC [facility]ANC THR OUGH July 14, 2024 12:30pm [facility] LABS July 20, 2024 1:32p m LABSPEC DROP OFF EORDER July 23, 2024 1 :18pm ACUTE ON CHR HYPOXIC FAILURE August 21, 2024 12:12pm ACUTE ON CHR HYPOXIC FAILURE August 21, 2024 12:23pm ACUTE ON CHR HYPOXIC FAILURE August 22, 2024 7:55am ACUTE ON CHR HYPOXIC FAILURE August 23, 2024 8:04am ACUTE ON CHR HYPOXIC FAILURE August 24 025 11:52am ACUTE ON CHR HYPOXIC FAILURE August 25 025 3:03pm LABS September 13, 2024 8:45 am [facility] September 13, 2024 8:50 am [facility] Discharge FU September 16, 2024 10:0 0am Hospital FU September 24, 2024 10: 12am 6 M FU October 08, 2024 8: 25am daytime hyersomnia October 14, 2024 8: 00pm Reason for Visit Admit Date MRSA bacteremia June 20, 2024 6:0 6pm Acute alteration in mental status June 20, 2024 6:06pm Acute and chronic respiratory failure wi th hypoxia June 20, 2024 6:06pm Sepsis June 20, 2024 6:0 6pm Claudication, intermittent June 20 6:06pm PAD (peripheral artery disease) June 202024 6:06pm Iron deficiency anemia July 20, 2024 1: 32pm 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 July 20, 2024 1:32pm Anemia, macrocytic August 21, 2024 12:1 2pm Dyspnea on exertion August 21, 2024 12:1 2pm Acute and chronic respiratory failure th hypercapnia August 21, 2024 12:12pm CHF exacerbation August 21, 2024 12:1 2pm Chronic kidney disease (CKD) August 21, 2024 12:12pm Type 2 MT (myocardial infarction) July 262024 12:12pm Acute on chronic hypoxic respiratory tanmay lure August 21, 2024 12:12pm Iron deficiency anemia September 13, 2024 8 :50am 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 September 13, 2024 8:50am Chronic iron deficiency anemia August 10:00am HFrEF (heart failure with reduced ejecti on fraction) September 16, 2024 10:00am Pleural effusion on right September 16 10:00am Acute and chronic respiratory failure wi th hypercapnia September 16, 2024 10:00am CHF exacerbation September 16, 2024 10:0 0am Essential hypertension September 16, 2024 1 0:00am History of COPD September 16, 2024 10:0 0am Type 2 diabetes mellitus September 16, 2024 10:00am Bronchiectasis September 24, 2024 10: 12am Daytime hypersomnia September 24, 2024 10: 12am Chronic hypoxemic respiratory failure [facility] 2024 10:12am COPD (chronic obstructive pulmonary dise ase) September 24, 2024 10:12am Nicotine dependence, cigarettes, in gurvinder ssion September 24, 2024 10:12am HFrEF (heart failure with reduced ejecti on fraction) October 08, 2024 8:25am Chronic kidney disease (CKD) September 8:25am Essential hypertension October 08, 2024 8:25am History of coronary artery stent placeme nt October 08, 2024 8:25am Hyperlipidemia October 08, 2024 8: 25am Iron deficiency anemia October 08, 2024 8:25am Chief Complaint Admit Date ACUTE ON CHR HYPOXIC FAILURE August 21, 2024 12:12pm ACUTE ON CHR HYPOXIC FAILURE August 23, 2024 8:04am ACUTE ON CHR HYPOXIC FAILURE August 24, 025 11:52am ACUTE ON CHR HYPOXIC FAILURE August 25 025 3:03pm [facility] LABS September 13, 2024 8:50 am [facility] Discharge September 16, 2024 10:0 0am Hospital September 24, 2024 10: 12am 6 M October 08, 2024 8: 25am daytime hyersomnia October 14, 2024 8: 00pm Annual/Physical December 06, 2024 8 :32am [facility] December 06, 2024 9 :20am LABS December 06, 2024 9 :45am Reason for Visit Admit Date Anemia, macrocytic August 21, 2024 12:1 2pm Dyspnea on exertion August 21, 2024 12:1 2pm Acute and chronic respiratory failure wi th hypercapnia August 21, 2024 12:12pm CHF exacerbation August 21, 2024 12:1 2pm Chronic kidney disease (CKD) August 21, 2024 12:12pm Type 2 MT (myocardial infarction) July 262024 12:12pm Acute on chronic hypoxic respiratory tanmay lure August 21, 2024 12:12pm Iron deficiency anemia September 13, 2024 8 :50am 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 September 13, 2024 8:50am Chronic iron deficiency anemia August 10:00am HFrEF (heart failure with reduced ejecti on fraction) September 16, 2024 10:00am Pleural effusion on right September 16 10:00am Acute and chronic respiratory failure wi th hypercapnia September 16, 2024 10:00am CHF exacerbation September 16, 2024 10:0 0am Essential hypertension September 16, 2024 1 0:00am History of COPD September 16, 2024 10:0 0am Type 2 diabetes mellitus September 16, 2024 10:00am Bronchiectasis September 24, 2024 10: 12am Daytime hypersomnia September 24, 2024 10: 12am Chronic hypoxemic respiratory failure [facility] 2024 10:12am COPD (chronic obstructive pulmonary dise ase) September 24, 2024 10:12am Nicotine dependence, cigarettes, in gurvinder ssion September 24, 2024 10:12am HFrEF (heart failure with reduced ejecti on fraction) October 08, 2024 8:25am Chronic kidney disease (CKD) September 8:25am Essential hypertension October 08, 2024 8:25am History of coronary artery stent placeme nt October 08, 2024 8:25am Hyperlipidemia October 08, 2024 8: 25am Iron deficiency anemia October 08, 2024 8:25am HFrEF (heart failure with reduced ejecti on fraction) December 06, 2024 8:32am Acute and chronic respiratory failure wi th hypercapnia December 06, 2024 8:32am Chronic kidney disease (CKD) November 8:32am COPD (chronic obstructive pulmonary dise ase) December 06, 2024 8:32am Essential hypertension December 06 8:32am Hyperlipidemia December 06, 2024 8 :32am Iron deficiency anemia December 06 8:32am Type 2 diabetes mellitus December 06, 025 8:32am Guaiac positive stools December 06 9:20am Iron deficiency anemia December 06 9:20am Additional Source Comments (unrecognized sect ion and content) No Status Records FoundNo Status Records FoundNo Status Records Found INFORMATION SOURCE (unrecogn ized section and content) DATE CREATED AUTHOR 01/29/2019 [facility] DATE CREATED AUTHOR AUTHOR'S ORGANIZ ATION 03/23/2023 [facility] DATE CREATED AUTHOR AUTHOR'S ORGANIZ ATION 12/09/2024 [facility] Goals (unrecognized section and content) Goals [...] Dr. Mario Greenberg , Family Provider Active [employer] Primary Care Provider Active Team Status: Inactive Member Role Status Dates [employer] Primary Care Provider, Referring Provider Active Dr. Tobi Zapata MD Attending Provider Active Team Status: Active Member Role Status Dates [employer] Primary Care Provider Active Dr. Margie Joy DO Emergency Provider Active Dr. Janice Mackey MD Admit Provider, Attending Provider, Other Provider Active Team Status: Active Member Role Status Dates [employer] Primary Care Provider Active Dr. Margie Joy DO Emergency Provider Active Dr. Janice Mackey MD Admit Provider, Other Provider Active Dr. Suze Rosas MD Attending Provider, Other Provider Active Team Status: Active Member Role Status Dates [employer] Primary Care Provider Active Dr. Margie Joy DO Emergency Provider Active Dr. Janice Mackey MD Admit Provider, Other Provider Active Dr. Suze Rosas MD Other Provider Active Dr. Jordan Ortiz MD Attending Provider Active Team Status: Active Member Role Status Dates [employer] Primary Care Provider Active Dr. Margie Joy DO Emergency Provider Active Dr. Janice Mackey MD Admit Provider, Other Provider Active Dr. Jordan Ortiz MD Referring Provider, Other Provid er Active Dr. Suze Rosas MD Other Provider Active Dr. Khai Galeana DO Attending Provider Active Team Status: Active Member Role Status Dates OLEG PIÑA , [employer] Primary Care Provider Active Dr. Khai Galeana , Attending Provider Active Team Status: Active Member Role Status Meagan PIÑA , [employer] Primary Care Provider Active Dr. Margie Joy DO Emergency Provider Active Dr. Janice Mackey MD Admit Provider, Other Provider Active Dr. Jordan Ortiz MD Attending Provider, Other Provid er Active Dr. Suze Rosas MD Other Provider Active Team Status: Inactive Member Role Status Dates OLEG PIÑA , [employer] Primary Care Provider, Referring Provider Active Dr. Khai Galeana , Attending Provider Active Team Status: Inactive Member Role Status Meagan PIÑA , [employer] Primary Care Provider, Referring Provider Active Dr. Anthony Singleton DO Attending Provider Active Team Status: Active Member Role Status Meagan PIÑA , [employer] Primary Care Provider Active Dr. Faisal Walker MD Emergency Provider Active Dr. Tobi Shannon MD Admit Provider, Attending Provider, Other Provider Active Team Status: Active Member Role Status Meagan PIÑA , GOLF INSTRUCTOR-C Primary Care Provider Active Dr. Faisal Walker MD Emergency Provider Active Dr. Tobi Shannon MD Admit Provider, Referring Provider, Other Provider Active Dr. Suze Rosas MD Other Provider Active Dr. Alexi Roblero MD Attending Provider, Other Provid er Active Dr. Anthony Singleton DO Other Provider Active Dr. Rambo Bruner MD Other Provider Active Dr. Afshin Pablo MD Other Provider Active More Pulido GOLF INSTRUCTOR, GOLF INSTRUCTOR-C Other Provider Active Team Status: Active Member Role Status Meagan PIÑA , GOLF INSTRUCTOR-C Primary Care Provider Active Dr. Faisal Walker MD Emergency Provider Active Dr. Tobi Shannon MD Admit Provider, Other Provide r Active Dr. Suze Rosas MD Attending Provider, Other Provider Active Dr. Alexi Roblero MD Other Provider Active Dr. Anthony Singleton , Other Provider Active Dr. Rambo Bruner MD Other Provider Active Dr. Afshin Pablo MD Other Provider Active More Pulido GOLF INSTRUCTOR, GOLF INSTRUCTOR-C Other Provider Active Team Status: Active Member Role Status Dates OLEG PIÑA , GOLF INSTRUCTOR-C Primary Care Provider Active Dr. Faisal Walker MD Emergency Provider Active Dr. Tobi Shannon MD Admit Provider, Other Provide r Active Dr. Alexi Roblero MD Other Provider Active Dr. Anthony Singleton DO Attending Provider, Other Provide r Active Dr. Rambo Bruner MD Other Provider Active Dr. Afshin Pablo MD Other Provider Active More Pulido GOLF INSTRUCTOR, GOLF INSTRUCTOR-C Other Provider Active Dr. Jordan Ortiz MD Other Provider Active Dr. Suze Rosas MD Other Provider Active Team Status: Active Member Role Status Meagan PIÑA , GOLF INSTRUCTOR-C Primary Care Provider Active Dr. Faisal Walker MD Emergency Provider Active Dr. Tobi Shannon MD Admit Provider, Other Provide r Active Dr. Alexi Roblero MD Other Provider Active Dr. Anthony Singleton DO Other Provider Active Dr. Rambo Bruner MD Other Provider Active Dr. Afshin Pablo MD Other Provider Active More Pulido GOLF INSTRUCTOR, GOLF INSTRUCTOR-C Other Provider Active Dr. Jordan Ortiz MD Attending Provider, Other Provid er Active Dr. Suze Rosas MD Other Provider Active Team Status: Active Member Role Status Meagan PIÑA , GOLF INSTRUCTOR-C Primary Care Provider Active Dr. Tobi Zapata MD Attending Provider, Referring Pro vider Active Team Status: Inactive Member Role Status Meagan PIÑA , GOLF INSTRUCTOR-C Primary Care Provider Active Dr. Margie Joy DO Emergency Provider Active Dr. Janice Mackey MD Admit Provider, Other Provider Active Dr. Jordan Ortiz MD Attending Provider Active Dr. Suze Rosas MD Other Provider Active Team Status: Inactive Member Role Status Dates OLEG BRYANS , GOLF INSTRUCTOR-C Primary Care Provider Active Dr. Khai Galeana DO Attending Provider Active Team Status: Inactive Member Role Status Dates OLEG BRYANS , GOLF INSTRUCTOR-C Primary Care Provider, Attending Provider Active Team Status: Inactive Member Role Status Dates OLEG PIÑA , GOLF INSTRUCTOR-C Primary Care Provider Active Dr. Faisal Walker MD Emergency Provider Active Dr. Tobi Shannon MD Admit Provider, Other Provide r Active Dr. Alexi Roblero MD Other Provider Active Dr. Anthony Singleton DO Other Provider Active Dr. Rambo Bruner MD Other Provider Active Dr. Afshin Pablo MD Other Provider Active More Pulido GOLF INSTRUCTOR, GOLF INSTRUCTOR-C Other Provider Active Dr. Jordan Ortiz MD Attending Provider Active Dr. Suze Rosas MD Other Provider Active Team Status: Active Member Role Status Dates OLEGNIXON ONEALPIÑA , GOLF INSTRUCTOR-C Primary Care Provider Active Dr. Anthony Singleton DO Attending Provider, Other Provide r Active Team Status: Inactive Member Role Status Dates OLEG BRYANS , GOLF INSTRUCTOR-C Primary Care Provider Active Dr. Anthony Singleton DO Attending Provider Active Team Status: Active Member Role Status Dates OLEG BRYANS , GOLF INSTRUCTOR-C Primary Care Provider Active Dr. Anthony Singleton DO Attending Provider Active Team Status: Inactive Member Role Status Dates OLEG BRYANS , GOLF INSTRUCTOR-C Primary Care Provider, Referring Provider Active More Pulido GOLF INSTRUCTOR, GOLF INSTRUCTOR-C Attending Provider Active Team Status: Inactive Member Role Status Dates OLEG BRYANS , GOLF INSTRUCTOR-C Primary Care Provid er, Attending Provider, Referring Provider Active Team Status: Active Member Role Status Dates OLEG BRYANS , GOLF INSTRUCTOR-C Primary Care Provider Active Dr. Anthony Singleton DO Attending Provider, Referring Provider, Other Provider Active Team Status: Inactive Member Role Status Meagan BRYANS , GOLF INSTRUCTOR-C Primary Care Provider Active Dr. Khai Galeana DO Attending Provider, Referring Provider Active Dr. Nate Bearden MD Other Provider Active Team Status: Active Member Role Status Dates Dr. Mario Greenberg DO Family Provider Active Dr. Donna Will MD Primary Care Provider Active Team Status: Inactive Member Role Status Dates OLEG BRYANS , GOLF INSTRUCTOR-C Primary Care Provider Active Dr. Donna Will MD Attending Provider Active Team Status: Inactive Member Role Status Dates OLEG PIÑA , GOLF INSTRUCTOR-C Primary Care Provider, Referring Provider Active CHARLES Active Dr. Khai Galeana DO Attending Provider Active Team Status: Inactive Member Role Status Meagan BRYANS , GOLF INSTRUCTOR-C Primary Care Provider Active Dr. Nate Bearden MD Attending Provider, Referr ing Provider Active Team Status: Inactive Member Role Status Dates Dr. Donna Will MD Primary Care Provider Active Adam Freeman MD Emergency Provider Active Team Status: Active Member Role Status Dates OLEG PIÑA GOLF INSTRUCTOR-C Primary Care Provider Active Dr. Khai Galeana DO Attending Provider, Referring Provider Active Dr. Tobi Zapata MD Other Provider Active Team Status: Inactive Member Role Status Dates OLEG PIÑA GOLF INSTRUCTOR-C Referring Provider Active Dr. Norm Mello MD Attending Provider Active Dr. Donna Will MD Primary Care Provider Active Team Status: Inactive Member Role Status Dates Dr. Tobi Zapata MD Attending Provider Active Dr. Donna Will MD Primary Care Provider, Referri ng Provider Active Team Status: Inactive Member Role Status Dates Dr. Donna Will MD Primary Care Provider, Referri ng Provider Active Martha Dodson GOLF INSTRUCTOR, GOLF INSTRUCTOR-C Attending Provider Active Team Status: Inactive Member [...] Team Status: Inactive Member Role Status Dates OLEG PIÑA GOLF INSTRUCTOR-C Primary Care Provider Active Dr. Khai Galeana [...] Provider, Referri ng Provider Active More Pulido GOLF INSTRUCTOR, GOLF INSTRUCTOR-C Attending Provider Active Team Status: Inactive Member Role Status Dates More Pulido GOLF INSTRUCTOR, GOLF INSTRUCTOR-C Attending Provider Active Dr. Donna Will MD [...] Will MD Primary Care Provider Active Dr. Kahi Galeana DO Attending Provider Active Dr. Clive Sharp MD [...] Sharp MD Other Provider Active Bethany Castro , GERA-C Attending Provider Active Team Status: Active Member Role Status Dates Dr. Donna Will MD Primary Care Provider Active Dr. Eva Marie DO Emergency Provider Active Dr. Nadira Ricks , DO Admit Provider, Other Provider Ac tive Dr. Clive Sharp MD Referring Provider, Other Provi jose antonio Active Dr. Anthony Singleton , Attending Provider Active Team Status: Active [...] Provider, Referri ng Provider Active Jennifer Galdamez GOLF INSTRUCTOR, GOLF INSTRUCTOR-C Attending Provider Active Team Status: Active Member Role Status Dates Dr. Donna Will MD Primary Care Provider Active Jennifer Galdamez GOLF INSTRUCTOR, GOLF INSTRUCTOR-C Attending Provider Active Team Status: Inactive Member Role Status Dates Dr. Donna Will MD Primary Care Provider Active Jennifer Galdamez GOLF INSTRUCTOR, GOLF INSTRUCTOR-C Attending Provider Active Team Status: Active Member [...] 2024 End: March 05, 2024 SORIN Gore Attending Provider Active Start: March 05, 2024 End: March 05, 2024 Team Status: Inactive Member Role Status Dates Dr. Donna Will MD Primary Care Provider Active Start: March 05, 2024 End: March 05, 2024 SORIN Gore Attending Provider Active Start: March 05, 2024 [...] Provider Active Start: April 06, 2024 Dr. Ksahif Berg MD Other Provider Active Start : [...] Active Start : April 06, 2024 Dr. oJrdan Alonzo MD Other Provider Active Sta rt: [...] Provider Active Start: April 07, 2024 Dr. Mdai Tavarez MD Other Provider Active Star t: [...] : April 07, 2024 Dr. Jordan Mendoza , DO Admit Provider Active Start: April 07, 2024 Dr. Jordan Mendoza , DO Other Provider Active Start: April 07, 2024 Dr. Isaias Granados MD Other Provider Active Start: April 07, 2024 Dr. Cisco Cortés MD Other Provider Active Start: April 07, 2024 Dr. Alexi Roblero MD Other Provider Active Star t: April 07, 2024 Dr. Anthony Singleton , Other Provider Active Start : April 07, [...] End: April 27, 2024 Martha Dodson NP, GOLF INSTRUCTOR-C Attending Provider Active Start: April 27, 2024 End: April 27, 2024 Team Status: Inactive Member Role Status Dates Dr. Donna Will MD Primary Care Provider Active Start: May 18, 2024 End: May 18, 2024 Dr. Donna Will MD Referring Provider Active Start: May 18, 2024 End: May 18, 2024 ROSANGELA GoreC Attending Provider Active Start: May 18, 2024 End: May 18, 2024 Team Status: Active Member Role Status Dates SORIN MCKENZIE Primary Care Provider Active Start: May 27, [...] t: June 21, 2024 Dr. Anthony Singleton DO [...] Sta rt: June 21, 2024 Dr. Mitch Pnizon MD Other Provider Active Star t: June [...] t: June 21, 2024 Dr. Anthony Singleton DO Attending Provider Active S tart: June 21, [...] Active St art: June 22, 2024 Dr. aDo Avila DO Other Provider Active Start: June [...] Active Star t: June 24, 2024 Dr. Wilebrto Villafuerte MD Other Provider Active Start: June [...] Care Provider Active Start: July 12, 2024 SORIN Gore Attending Provider Active Start: July 12, 2024 Gris M Rufener , GOLF INSTRUCTOR-C Referring Provider Active Start: July 12, 2024 Team Status: Inactive Member Role Status Dates Dr. Donna Will MD Primary Care Provider Active Start: July 12, 2024 End: July 12, 2024 Gris Naik NP-C Attending Provider Active Start: July 12, 2024 End: July 12, 2024 SORIN Gore Referring Provider Active Start: July 12, 2024 End: July 12, 2024 Team Status: Active Member Role Status Dates Dr. Donna Will MD Primary Care Provider Active Start: July 14, 2024 Dr. Wilberto Villafuerte MD Attending Provider Active Start: July 14, 2024 Dr. Wilberto Villafuerte MD Referring Provider Active Start: July 14, 2024 Team Status: Active Member Role Status Dates ROSANGELA MCKENZIEC Primary Care Provider Active Start: July 20, [...] 2024 End: July 14, 2024 Dr. Wilberto Villafueret MD Referring Provider Active Start: July 14, [...] Team Status: Active Member Role Status Dates OLEG PIÑA NP-C Primary Care Provider Active Start: July 27, 2024 Dr. Tobi Zapata MD Attending Provider Active S tart: July 27, 2024 Dr. Tobi Zapata MD Referring Provider Active S tart: July 27, 2024 Team Status: Active Member Role/Relationship Status Dates Dr. Donna Will MD Primary Care Provider Active Team Status: Inactive Member Role/Relationship Status Dates Dr. Donna Will MD Primary Care Provider Active Start: April 27, 2024 End: April 27, 2024 Dr. Donna Will MD Referring Provider Active Start: April 27, 2024 End: April 27, 2024 Martha Dodson NP GOLF INSTRUCTOR-C Attending Provider Active Start: April 27, 2024 End: April 27, 2024 Team Status: Inactive Member Role/Relationship Status Dates Dr. Donna Will MD Primary Care Provider Active Start: May 18, 2024 End: May 18, 2024 Dr. Donna Will MD Referring Provider Active Start: May 18, 2024 End: May 18, 2024 Gris Naik NP-C Attending Provider Active Start: May 18, 2024 End: May 18, 2024 Team Status: Inactive Member Role/Relationship Status Dates Dr. Donna Will MD Primary [...] June 25, 2024 Team Status: Active Member Role/Relationship Status Dates Dr. Donna Will MD Primary [...] t: June 21, 2024 Dr. Anthony Singleton DO [...] June 21, 2024 Team Status: Active Member Role/Relationship Status Dates Dr. Donna Will MD Primary [...] t: June 21, 2024 Dr. Anthony Singleton DO Attending Provider Active S tart: June 21, [...] Active St art: June 21, 2024 Dr. Doa Avila DO Other Provider Active Start: June 21, 2024 Dr. Madi Tavarez MD Other Provider Active Star t: June 21, 2024 Dr. Zhang Concepcion MD Other Provider Active Sta rt: June 21, 2024 Team Status: Active Member Role/Relationship Status Dates Dr. Donna Will MD Primary Care Provider Active Start: June 21, 2024 Dr. Marco Dang MD Attending Provider Active S tart: June 21, 2024 Dr. Mable Pritchard MD Referring Provider Active Start: June 21, 2024 Team Status: Active Member Role/Relationship Status Dates Dr. Donna Will MD Primary [...] t: June 22, 2024 Dr. Anthony Singleton , Attending Provider Active S tart: June 22, [...] Active Star t: June 22, 2024 Dr. Rajeve Dalton MD Other Provider Active St art: [...] June 22, 2024 Team Status: Active Member Role/Relationship Status Dates Dr. Donna Will MD Primary [...] June 22, 2024 Team Status: Active Member Role/Relationship Status Dates Dr. Donna Will MD Primary Care Provider Active Start: June 22, 2024 Dr. Chicho Carson MD Attending Provider Activ e Start: June 22, 2024 Team Status: Active Member Role/Relationship Status Dates Dr. Donna Will MD Primary [...] June 23, 2024 Team Status: Active Member Role/Relationship Status Dates Dr. Donna Will MD Primary [...] June 23, 2024 Team Status: Active Member Role/Relationship Status Dates Dr. Donna Will MD Primary [...] June 24, 2024 Team Status: Active Member Role/Relationship Status Dates Dr. Donna Will MD Primary [...] Active Start: June 25, 2024 Team Status: Inactive Member Role/Relationship Status Dates Dr. Donna Will MD Primary Care Provider Active Start: June 29, 2024 End: June 29, 2024 Dr. Wilberto Villafuerte MD Attending Provider Active Start: June 29, 2024 End: June 29, 2024 Dr. Wilberto Villafuerte MD Referring Provider Active Start: June 29, 2024 End: June 29, 2024 Team Status: Inactive Member Role/Relationship Status Dates Dr. Donna Will MD Primary Care Provider Active Start: June 30, 2024 End: June 30, 2024 Dr. Donna Will MD Attending Provider Active Start: June 30, 2024 End: June 30, 2024 Team Status: Inactive Member Role/Relationship Status Dates Dr. Donna Will MD Primary Care Provider Active Start: July 05, 2024 End: July 05, 2024 Dr. Wilberto Villafuerte MD Attending Provider Active Start: July 05, 2024 End: July 05, 2024 Dr. Wilberto Villafuerte MD Referring Provider Active Start: July 05, 2024 End: July 05, 2024 Team Status: Inactive Member Role/Relationship Status Dates Dr. Donna Will MD Primary Care Provider Active Start: July 08, 2024 End: July 08, 2024 Dr. Marco Hoffman DO Attending Provider Active Start: July 08, 2024 End: July 08, 2024 Dr. Marco Hoffman DO Emergency Provider Active Start: July 08, 2024 End: July 08, 2024 Team Status: Inactive Member Role/Relationship Status Dates Dr. Donna Will MD Primary Care Provider Active Start: July 12, 2024 End: July 12, 2024 Gris Naik NP-C Attending Provider Active Start: July 12, 2024 End: July 12, 2024 Gris Naik NP-C Referring Provider Active Start: July 12, 2024 End: July 12, 2024 Team Status: Active Member Role/Relationship Status Dates Dr. Donna Will MD Primary Care Provider Active Start: July 12, 2024 Dr. Anthony Singleton DO Attending Provider Active S tart: July 12, 2024 Gris Naik NP-C Referring Provider Active Start: July 12, 2024 Team Status: Inactive Member Role/Relationship Status Dates Dr. Donna Will MD Primary Care Provider Active Start: July 12, 2024 End: July 12, 2024 Gris Naik NP-C Attending Provider Active Start: July 12, 2024 End: July 12, 2024 Gris Naik NP-Gurwinder Referring Provider Active Start: July 12, 2024 End: July 12, 2024 Team Status: Inactive Member Role/Relationship Status Dates Dr. Donna Will MD Primary Care Provider Active Start: July 14, 2024 End: July 14, 2024 Dr. Wilberto Villafuerte MD Attending Provider Active Start: July 14, 2024 End: July 14, 2024 Dr. Wilberto Villafuerte MD Referring Provider Active Start: July 14, 2024 End: July 14, 2024 Team Status: Inactive Member Role/Relationship Status Dates Dr. Donna Will MD Primary Care Provider Active Start: July 20, 2024 End: July 20, 2024 Dr. Donna Will MD Referring Provider Active Start: July 20, 2024 End: July 20, 2024 Dr. Tobi Zapata MD Attending Provider Active S tart: July 20, 2024 End: July 20, 2024 Team Status: Inactive Member Role/Relationship Status Dates Dr. Donna Will MD Primary Care Provider Active Start: July 21, 2024 End: July 21, 2024 Dr. Wilberto Villafuerte MD Attending Provider Active Start: July 21, 2024 End: July 21, 2024 Team Status: Inactive Member Role/Relationship Status Dates Dr. Donna Will MD Primary Care Provider Active Start: July 23, 2024 End: July 23, 2024 Dr. Tobi Zapata MD Attending Provider Active S tart: July 23, 2024 End: July 23, 2024 Dr. Tobi Zapata MD Referring Provider Active S tart: July 23, 2024 End: July 23, 2024 Team Status: Active Member Role/Relationship Status Dates SORIN MCKENZIE Primary Care Provider Active Start: August 03, 2024 Dr. Tobi Zapata MD Attending Provider Active S tart: August 03, 2024 Dr. Tobi Zapata MD Referring Provider Active S tart: August 03, 2024 Team Status: Active Member Role/Relationship Status Dates Dr. Donna Will MD Primary Care Provider Active Start: August 21, 2024 Dr. Terry Singh DO Emergency Provider Active Start: August 21, 2024 Dr. Clive Sharp MD Admit Provider Active Sta rt: August 21, 2024 Dr. Clive Sharp MD Attending Provider Active Start: August 21, 2024 Team Status: Active Member Role/Relationship Status Dates Dr. Donna Will MD Primary Care Provider Active Start: August 21, 2024 Dr. Terry Singh DO Emergency Provider Active Start: August 21, 2024 Dr. Clive Sharp MD Admit Provider Active Sta rt: August 21, 2024 Dr. Clive Sharp MD Attending Provider Active Start: August 21, 2024 Dr. Clive Sharp MD Other Provider Active Sta rt: August 21, 2024 Team Status: Inactive Member Role/Relationship Status Dates Dr. Donna Will MD Primary Care Provider Active Start: August 21, 2024 End: August 25, 2024 Dr. Terry Singh DO Emergency Provider Active Start: August 21, 2024 End: August 25, 2024 Dr. Clive Sharp MD Admit Provider Active Sta rt: August 21, 2024 End: August 25, 2024 Dr. Clive Sharp MD Attending Provider Active Start: August 21, 2024 End: August 25, 2024 Dr. Isaias Granados MD Other Provider Active Start: August 21, 2024 End: August 25, 2024 Dr. Cisco Cortés MD Other Provider Active Start: August 21, 2024 End: August 25, 2024 Dr. Alexi Roblero MD Other Provider Active Star t: August 21, 2024 End: August 25, 2024 Dr. Anthony Singleton DO Other Provider Active Start : August 21, 2024 End: August 25, 2024 Dr. Jordan Alonzo MD Other Provider Active Sta rt: August 21, 2024 End: August 25, 2024 Dr. Meet Mckeon MD Other Provider Active St art: August 21, 2024 End: August 25, 2024 Dr. Carlito Cárdenas MD Other Provider Active S tart: August 21, 2024 End: August 25, 2024 Dr. Claudine Andrade MD Other Provider Active Start: August 21, 2024 End: August 25, 2024 Dr. Marvin Coats MD Other Provider Active Start : August 21, 2024 End: August 25, 2024 Dr. Dimas Alvarenga MD Other Provider Active Start: August 21, 2024 End: August 25, 2024 Dr. Kashif Berg MD Other Provider Active Start : August 21, 2024 End: August 25, 2024 Dr. Elizabeth Wilson MD Other Provider Active Star t: August 21, 2024 End: August 25, 2024 Dr. Aric Leon MD Other Provider Active Sta rt: August 21, 2024 End: August 25, 2024 Dr. Ashanti Dugan MD Other Provider Active Sta rt: August 21, 2024 End: August 25, 2024 Dr. Mitch Pinzon MD Other Provider Active Star t: August 21, 2024 End: August 25, 2024 Dr. Rajeev Dalton MD Other Provider Active St art: August 21, 2024 End: August 25, 2024 Dr. Roberto Escalante MD Other Provider Active Star t: August 21, 2024 End: August 25, 2024 Dr. Nikolai Keller DO Other Provider Active St art: August 21, 2024 End: August 25, 2024 Dr. Leyda Fischer MD Other Provider Active Start: August 21, 2024 End: August 25, 2024 Dr. Yolie Zapata MD Other Provider Active St art: August 21, 2024 End: August 25, 2024 Dr. Dao Avila DO Other Provider Active Start: August 21, 2024 End: August 25, 2024 Dr. Madi Tavarez MD Other Provider Active Star t: August 21, 2024 End: August 25, 2024 Dr. Zhang Concepcion MD Other Provider Active Sta rt: August 21, 2024 End: August 25, 2024 Dr. Kee York MD Other Provider Active S tart: August 21, 2024 End: August 25, 2024 Dr. Jordan Davis DO Other Provider Active Sta rt: August 21, 2024 End: August 25, 2024 Dr. Adriana Goel MD Other Provider Active Start : August 21, 2024 End: August 25, 2024 Dr. Farida Todd MD Other Provider Active St art: August 21, 2024 End: August 25, 2024 ROSANGELA ColonC Other Provider Active Sta rt: August 21, 2024 End: August 25, 2024 Katelynn Greenberg NP, GOLF INSTRUCTOR-C Other Provider Active Start: August 21, 2024 End: August 25, 2024 YANELIS Ley Other Provider Active Start: J 2024 End: August 25, 2024 Team Status: Active Member Role/Relationship Status Dates Dr. Donna Will MD Primary Care Provider Active Start: August 22, 2024 Dr. Terry Singh , DO Emergency Provider Active Start: August 22, 2024 Dr. Clive Sharp MD Admit Provider Active Sta rt: August 22, 2024 Dr. Clive Sharp MD Attending Provider Active Start: August 22, 2024 Dr. Clive Sharp MD Other Provider Active Sta rt: August 22, 2024 Dr. Isaias Granados MD Other Provider Active Start: August 22, 2024 Dr. Cisco Cortés MD Other Provider Active Start: August 22, 2024 Dr. Alexi Roblero MD Other Provider Active Star t: August 22, 2024 Dr. Anthony Singleton , Other Provider Active Start : August 22, 2024 Dr. Jordan Alonzo MD Other Provider Active Sta rt: August 22, 2024 Dr. Meet Mckeon MD Other Provider Active St art: August 22, 2024 Dr. Carlito Cárdenas MD Other Provider Active S tart: August 22, 2024 Dr. Claudine Andrade MD Other Provider Active Start: August 22, 2024 Dr. Marvin Coats MD Other Provider Active Start : August 22, 2024 Dr. Dimas Alvarenga MD Other Provider Active Start: August 22, 2024 Dr. Kashif Berg MD Other Provider Active Start : August 22, 2024 Dr. Elizabeth Wilson MD Other Provider Active Star t: August 22, 2024 Dr. Aric Leon MD Other Provider Active Sta rt: August 22, 2024 Dr. Ashanti Dugan MD Other Provider Active Sta rt: August 22, 2024 Dr. Mitch Pinzon MD Other Provider Active Star t: August 22, 2024 Dr. Rajeev Dalton MD Other Provider Active St art: August 22, 2024 Dr. Roberto Escalante MD Other Provider Active Star t: August 22, 2024 Dr. Nikolai Keller , Other Provider Active St art: August 22, 2024 Dr. Leyda Fischer MD Other Provider Active Start: August 22, 2024 Dr. Yolie Zapata MD Other Provider Active St art: August 22, 2024 Dr. Dao Avila , Other Provider Active Start: August 22, 2024 Dr. Madi Tavarez MD Other Provider Active Star t: August 22, 2024 Dr. Zhang Concepcion MD Other Provider Active Sta rt: August 22, 2024 Team Status: Active Member Role/Relationship Status Dates Dr. Donna Will MD Primary Care Provider Active Start: August 23, 2024 Dr. Terry Singh DO Emergency Provider Active Start: August 23, 2024 Dr. Clive Sharp MD Admit Provider Active Sta rt: August 23, 2024 Dr. Clive Sharp MD Attending Provider Active Start: August 23, 2024 Dr. Clive Sharp MD Other Provider Active Sta rt: August 23, 2024 Dr. Isaias Granados MD Other Provider Active Start: August 23, 2024 Dr. Cisco Cortés MD Other Provider Active Start: August 23, 2024 Dr. Alexi Roblero MD Other Provider Active Star t: August 23, 2024 Dr. Anthony Singleton DO Other Provider Active Start : August 23, 2024 Dr. Jordan Alonzo MD Other Provider Active Sta rt: August 23, 2024 Dr. Meet Mckeon MD Other Provider Active St art: August 23, 2024 Dr. Carlito Cárdenas MD Other Provider Active S tart: August 23, 2024 Dr. Claudine Andrade MD Other Provider Active Start: August 23, 2024 Dr. Marvin Coats MD Other Provider Active Start : August 23, 2024 Dr. Dimas Alvarenga MD Other Provider Active Start: August 23, 2024 Dr. Kashif Berg MD Other Provider Active Start : August 23, 2024 Dr. Elizabeth Wilson MD Other Provider Active Star t: August 23, 2024 Dr. Aric Leon MD Other Provider Active Sta rt: August 23, 2024 Dr. Ashanti Dugan MD Other Provider Active Sta rt: August 23, 2024 Dr. Mitch Pinzon MD Other Provider Active Star t: August 23, 2024 Dr. Rajeev Dalton MD Other Provider Active St art: August 23, 2024 Dr. Roberto Escalante MD Other Provider Active Star t: August 23, 2024 Dr. Nikolai Keller DO Other Provider Active St art: August 23, 2024 Dr. Leyda Fischer MD Other Provider Active Start: August 23, 2024 Dr. Yolie Zapata MD Other Provider Active St art: August 23, 2024 Dr. Dao Avila DO Other Provider Active Start: August 23, 2024 Dr. Madi Tavarez MD Other Provider Active Star t: August 23, 2024 Dr. Zhang Concepcion MD Other Provider Active Sta rt: August 23, 2024 Dr. Kee York MD Other Provider Active S tart: August 23, 2024 Team Status: Active Member Role/Relationship Status Dates Dr. Donna Will MD Primary Care Provider Active Start: August 23, 2024 Dr. Warren Murray MD Attending Provider Active Start: August 23, 2024 Team Status: Active Member Role/Relationship Status Dates Dr. Donna Will MD Primary Care Provider Active Start: August 24, 2024 Dr. Terry Singh DO Emergency Provider Active Start: August 24, 2024 Dr. Clive Sharp MD Admit Provider Active Sta rt: August 24, 2024 Dr. Clive Sharp MD Attending Provider Active Start: August 24, 2024 Dr. Clive Sharp MD Other Provider Active Sta rt: August 24, 2024 Dr. Isaias Granados MD Other Provider Active Start: August 24, 2024 Dr. Cisco Cortés MD Other Provider Active Start: August 24, 2024 Dr. Alexi Roblero MD Other Provider Active Star t: August 24, 2024 Dr. Anthony Singleton DO Other Provider Active Start : August 24, 2024 Dr. Jordan Alonzo MD Other Provider Active Sta rt: August 24, 2024 Dr. Meet Mckeon MD Other Provider Active St art: August 24, 2024 Dr. Carlito Cárdenas MD Other Provider Active S tart: August 24, 2024 Dr. Claudine Andrade MD Other Provider Active Start: August 24, 2024 Dr. Marvin Coats MD Other Provider Active Start : August 24, 2024 Dr. Dimas Alvarenga MD Other Provider Active Start: August 24, 2024 Dr. Kashif Berg MD Other Provider Active Start : August 24, 2024 Dr. Elizabeth Wilson MD Other Provider Active Star t: August 24, 2024 Dr. Aric Leon MD Other Provider Active Sta rt: August 24, 2024 Dr. Ashanti Dugan MD Other Provider Active Sta rt: August 24, 2024 Dr. Mitch Pinzon MD Other Provider Active Star t: August 24, 2024 Dr. Rajeev Dalton MD Other Provider Active St art: August 24, 2024 Dr. Roberto Escalante MD Other Provider Active Star t: August 24, 2024 Dr. Nikolai Keller , Other Provider Active St art: August 24, 2024 Dr. Leyda Fischer MD Other Provider Active Start: August 24, 2024 Dr. Yolie Zapata MD Other Provider Active St art: August 24, 2024 Dr. Dao Avila DO Other Provider Active Start: August 24, 2024 Dr. Madi Tavarez MD Other Provider Active Star t: August 24, 2024 Dr. Zhang Concepcion MD Other Provider Active Sta rt: August 24, 2024 Dr. Kee York MD Other Provider Active S tart: August 24, 2024 Dr. Jordan Davis DO Other Provider Active Sta rt: August 24, 2024 Dr. Adriana Goel MD Other Provider Active Start : August 24, 2024 Dr. Farida Todd MD Other Provider Active St art: August 24, 2024 Linda Huizar [employer] Other Provider Active Sta rt: August 24, 2024 Katelynn Greenberg NP, [employer] Other Provider Active Start: August 24, 2024 YANELIS Ley Other Provider Active Start: Cleo [email or web address] Team Status: Active Member Role/Relationship Status Dates Dr. Donna Will MD Primary Care Provider Active Start: August 25, 2024 Dr. Terry Singh DO Emergency Provider Active Start: August 25, 2024 Dr. Clive Sharp MD Admit Provider Active Sta rt: August 25, 2024 Dr. Clive Sharp MD Attending Provider Active Start: August 25, 2024 Dr. Clive Sharp MD Other Provider Active Sta rt: August 25, 2024 Dr. Isaias Granados MD Other Provider Active Start: August 25, 2024 Dr. Cisco Cortés MD Other Provider Active Start: August 25, 2024 Dr. Alexi Roblero MD Other Provider Active Star t: August 25, 2024 Dr. Anthony Singleton , Other Provider Active Start : August 25, 2024 Dr. Jordan Alonzo MD Other Provider Active Sta rt: August 25, 2024 Dr. Meet Mckeon MD Other Provider Active St art: August 25, 2024 Dr. Carlito Cárdenas MD Other Provider Active S tart: August 25, 2024 Dr. Claudine Andrade MD Other Provider Active Start: August 25, 2024 Dr. Marvin Coats MD Other Provider Active Start : August 25, 2024 Dr. Dimas Alvarenga MD Other Provider Active Start: August 25, 2024 Dr. Kashif Berg MD Other Provider Active Start : August 25, 2024 Dr. Elizabeth Wilson MD Other Provider Active Star t: August 25, 2024 Dr. Aric Leon MD Other Provider Active Sta rt: August 25, 2024 Dr. Ashanti Dugan MD Other Provider Active Sta rt: August 25, 2024 Dr. Mitch Pinzon MD Other Provider Active Star t: August 25, 2024 Dr. Rajeev Dalton MD Other Provider Active St art: August 25, 2024 Dr. Roberto Escalante MD Other Provider Active Star t: August 25, 2024 Dr. Nikolai Keller DO Other Provider Active St art: August 25, 2024 Dr. Leyda Fischer MD Other Provider Active Start: August 25, 2024 Dr. Yolie Zapata MD Other Provider Active St art: August 25, 2024 Dr. Dao Avila DO Other Provider Active Start: August 25, 2024 Dr. Madi Tavarez MD Other Provider Active Star t: August 25, 2024 Dr. Zhang Concepcion MD Other Provider Active Sta rt: August 25, 2024 Dr. Kee York MD Other Provider Active S tart: August 25, 2024 Dr. Jordan Davis DO Other Provider Active Sta rt: August 25, 2024 Dr. Adriana Goel MD Other Provider Active Start : August 25, 2024 Dr. Farida Todd MD Other Provider Active St art: August 25, 2024 Linda Bhupendra , [employer] Other Provider Active Sta rt: August 25, 2024 Katelynn Greenberg NP, [employer] Other Provider Active Start: August 25, 2024 YANELIS Ley Other Provider Active Start: Cleo 2024 Team Status: Inactive Member Role/Relationship Status Dates Dr. Donna Will MD Primary Care Provider Active Start: May 18, 2024 End: May 18, 2024 Dr. Donna Will MD Referring Provider Active Start: May 18, 2024 End: May 18, 2024 Gris Naik NP-C Attending Provider Active Start: May 18, 2024 End: May 18, 2024 Team Status: Inactive Member Role/Relationship Status Dates Dr. Donna Will MD Primary [...] June 25, 2024 Team Status: Active Member Role/Relationship Status Dates Dr. Donna Will MD Primary [...] t: June 21, 2024 Dr. Anthony Singleton DO [...] June 21, 2024 Team Status: Active Member Role/Relationship Status Dates Dr. Donna Will MD Primary [...] tart: June 21, 2024 Dr. Anthony Singleton , [...] June 21, 2024 Team Status: Active Member Role/Relationship Status Dates Dr. Donna Will MD Primary Care Provider Active Start: June 21, 2024 Dr. Marco Dang MD Attending Provider Active S tart: June 21, 2024 Dr. Mable Pritchard MD Referring Provider Active Start: June 21, 2024 Team Status: Active Member Role/Relationship Status Dates Dr. Donna Will MD Primary [...] June 22, 2024 Team Status: Active Member Role/Relationship Status Dates Dr. Donna Will MD Primary [...] Active Star t: June 22, 2024 Dr. rAic Leon MD Other Provider Active Sta rt: June 22, 2024 Dr. Ashanti Dugan MD Other Provider Active Sta rt: June 22, 2024 Dr. Mitch Pinzon MD Other Provider Active Star t: June 22, 2024 Dr. Rajeev Dalton MD Other Provider Active St art: June 22, 2024 Dr. Roberto Escalante MD Other Provider Active Star t: June 22, 2024 Dr. Nikolai Kleler DO Other Provider Active St art: June [...] June 22, 2024 Team Status: Active Member Role/Relationship Status Dates Dr. Donna Will MD Primary Care Provider Active Start: June 22, 2024 Dr. Chicho Carson MD Attending Provider Activ e Start: June 22, 2024 Team Status: Active Member Role/Relationship Status Dates Dr. Donna Will MD Primary Care Provider Active Start: June 23, 2024 Dr. Eva Marie , Emergency Provider Active Start: June 23, 2024 [...] June 23, 2024 Team Status: Active Member Role/Relationship Status Dates Dr. Donna Will MD Primary [...] June 23, 2024 Team Status: Active Member Role/Relationship Status Dates Dr. Donna Will MD Primary [...] June 24, 2024 Team Status: Active Member Role/Relationship Status Dates Dr. Donna Will MD Primary [...] Active Start: June 25, 2024 Team Status: Inactive Member Role/Relationship Status Dates Dr. Donna Will MD Primary Care Provider Active Start: June 29, 2024 End: June 29, 2024 Dr. Wilberto Villafuerte MD Attending Provider Active Start: June 29, 2024 End: June 29, 2024 Dr. Wilberto Villafuerte MD Referring Provider Active Start: June 29, 2024 End: June 29, 2024 Team Status: Inactive Member Role/Relationship Status Dates Dr. Donna Will MD Primary Care Provider Active Start: June 30, 2024 End: June 30, 2024 Dr. Donna Will MD Attending Provider Active Start: June 30, 2024 End: June 30, 2024 Team Status: Inactive Member Role/Relationship Status Dates Dr. Donna Will MD Primary Care Provider Active Start: July 05, 2024 End: July 05, 2024 Dr. Wilberto Villafuerte MD Attending Provider Active Start: July 05, 2024 End: July 05, 2024 Dr. Wilberto Villafuerte MD Referring Provider Active Start: July 05, 2024 End: July 05, 2024 Team Status: Inactive Member Role/Relationship Status Dates Dr. Donna Will MD Primary Care Provider Active Start: July 08, 2024 End: July 08, 2024 Dr. Marco Hoffman DO Attending Provider Active Start: July 08, 2024 End: July 08, 2024 Dr. Marco Hoffman DO Emergency Provider Active Start: July 08, 2024 End: July 08, 2024 Team Status: Inactive Member Role/Relationship Status Dates Dr. Donna Will MD Primary Care Provider Active Start: July 12, 2024 End: July 12, 2024 Gris Naik NP-C Attending Provider Active Start: July 12, 2024 End: July 12, 2024 SORIN Gore Referring Provider Active Start: July 12, 2024 End: July 12, 2024 Team Status: Active Member Role/Relationship Status Dates Dr. Donna Will MD Primary Care Provider Active Start: July 12, 2024 Dr. Anthony Singleton DO Attending Provider Active S tart: July 12, 2024 Gris Naik NP-C Referring Provider Active Start: July 12, 2024 Team Status: Inactive Member Role/Relationship Status Dates Dr. Donna Will MD Primary Care Provider Active Start: July 12, 2024 End: July 12, 2024 SORIN Gore Attending Provider Active Start: July 12, 2024 End: July 12, 2024 SORIN Gore Referring Provider Active Start: July 12, 2024 End: July 12, 2024 Team Status: Inactive Member Role/Relationship Status Dates Dr. Donna Will MD Primary Care Provider Active Start: July 14, 2024 End: July 14, 2024 Dr. Wilberto Villafuerte MD Attending Provider Active Start: July 14, 2024 End: July 14, 2024 Dr. Wilberto Villafuerte MD Referring Provider Active Start: July 14, 2024 End: July 14, 2024 Team Status: Inactive Member Role/Relationship Status Dates Dr. Donna Will MD Primary Care Provider Active Start: July 20, 2024 End: July 20, 2024 Dr. Donna Will MD Referring Provider Active Start: July 20, 2024 End: July 20, 2024 Dr. Tobi Zapata MD Attending Provider Active S tart: July 20, 2024 End: July 20, 2024 Team Status: Inactive Member Role/Relationship Status Dates Dr. Donna Will MD Primary Care Provider Active Start: July 21, 2024 End: July 21, 2024 Dr. Wilberto Villafuerte MD Attending Provider Active Start: July 21, 2024 End: July 21, 2024 Team Status: Inactive Member Role/Relationship Status Dates Dr. Donna Will MD Primary Care Provider Active Start: July 23, 2024 End: July 23, 2024 Dr. Tobi Zapata MD Attending Provider Active S tart: July 23, 2024 End: July 23, 2024 Dr. Tobi Zapata MD Referring Provider Active S tart: July 23, 2024 End: July 23, 2024 Team Status: Inactive Member Role/Relationship Status Dates Dr. Donna Will MD Primary Care Provider Active Start: August 21, 2024 End: August 25, 2024 Dr. Terry Singh DO Emergency Provider Active Start: August 21, 2024 End: August 25, 2024 Dr. Clive Sharp MD Admit Provider Active Sta rt: August 21, 2024 End: August 25, 2024 Dr. Clive Sharp MD Attending Provider Active Start: August 21, 2024 End: August 25, 2024 Dr. Isaias Granados MD Other Provider Active Start: August 21, 2024 End: August 25, 2024 Dr. Cisco Cortés MD Other Provider Active Start: August 21, 2024 End: August 25, 2024 Dr. Alexi Roblero MD Other Provider Active Star t: August 21, 2024 End: August 25, 2024 Dr. Anthony Singleton DO Other Provider Active Start : August 21, 2024 End: August 25, 2024 Dr. Jordan Alonzo MD Other Provider Active Sta rt: August 21, 2024 End: August 25, 2024 Dr. Meet Mckeon MD Other Provider Active St art: August 21, 2024 End: August 25, 2024 Dr. Carlito Cárdenas MD Other Provider Active S tart: August 21, 2024 End: August 25, 2024 Dr. Claudine Andrade MD Other Provider Active Start: August 21, 2024 End: August 25, 2024 Dr. Marvin Coats MD Other Provider Active Start : August 21, 2024 End: August 25, 2024 Dr. Dimas Alvarenga MD Other Provider Active Start: August 21, 2024 End: August 25, 2024 Dr. Kashif Berg MD Other Provider Active Start : August 21, 2024 End: August 25, 2024 Dr. Elizabeth Wilson MD Other Provider Active Star t: August 21, 2024 End: August 25, 2024 Dr. Aric Leon MD Other Provider Active Sta rt: August 21, 2024 End: August 25, 2024 Dr. Ashanti Dugan MD Other Provider Active Sta rt: August 21, 2024 End: August 25, 2024 Dr. Mitch Pinzon MD Other Provider Active Star t: August 21, 2024 End: August 25, 2024 Dr. Rajeev Dalton MD Other Provider Active St art: August 21, 2024 End: August 25, 2024 Dr. Roberto Escalante MD Other Provider Active Star t: August 21, 2024 End: August 25, 2024 Dr. Nikolai Keller , Other Provider Active St art: August 21, 2024 End: August 25, 2024 Dr. Leyda Fischer MD Other Provider Active Start: August 21, 2024 End: August 25, 2024 Dr. Yolie Zapata MD Other Provider Active St art: August 21, 2024 End: August 25, 2024 Dr. Dao Avila DO Other Provider Active Start: August 21, 2024 End: August 25, 2024 Dr. Madi Tavarez MD Other Provider Active Star t: August 21, 2024 End: August 25, 2024 Dr. Zhang Concepcion MD Other Provider Active Sta rt: August 21, 2024 End: August 25, 2024 Dr. Kee York MD Other Provider Active S tart: August 21, 2024 End: August 25, 2024 Dr. Jordan Davis DO Other Provider Active Sta rt: August 21, 2024 End: August 25, 2024 Dr. Adriana Goel MD Other Provider Active Start : August 21, 2024 End: August 25, 2024 Dr. Farida Todd MD Other Provider Active St art: August 21, 2024 End: August 25, 2024 Lnida Huizar NP-C Other Provider Active Sta rt: August 21, 2024 End: August 25, 2024 Katelynn Greenberg NP, [employer] Other Provider Active Start: August 21, 2024 End: August 25, 2024 YANELIS Ley Other Provider Active Start: J 2024 End: August 25, 2024 Team Status: Active Member Role/Relationship Status Dates Dr. Donna Will MD Primary Care Provider Active Start: August 21, 2024 Dr. Terry Singh DO Emergency Provider Active Start: August 21, 2024 Dr. Clive Sharp MD Admit Provider Active Sta rt: August 21, 2024 Dr. Clive Sharp MD Attending Provider Active Start: August 21, 2024 Dr. Clive Sharp MD Other Provider Active Sta rt: August 21, 2024 Team Status: Active Member Role/Relationship Status Dates Dr. Donna Will MD Primary Care Provider Active Start: August 22, 2024 Dr. Terry Singh , Emergency Provider Active Start: August 22, 2024 Dr. Clive Sharp MD Admit Provider Active Sta rt: August 22, 2024 Dr. Clive Sharp MD Attending Provider Active Start: August 22, 2024 Dr. Clive Sharp MD Other Provider Active Sta rt: August 22, 2024 Dr. Isaias Granados MD Other Provider Active Start: August 22, 2024 Dr. Cisco Cortés MD Other Provider Active Start: August 22, 2024 Dr. Alexi Roblero MD Other Provider Active Star t: August 22, 2024 Dr. Anthony Singleton , Other Provider Active Start : August 22, 2024 Dr. Jordan Alonzo MD Other Provider Active Sta rt: August 22, 2024 Dr. Meet Mckeon MD Other Provider Active St art: August 22, 2024 Dr. Carlito Cárdenas MD Other Provider Active S tart: August 22, 2024 Dr. Claudine Andrade MD Other Provider Active Start: August 22, 2024 Dr. Marvin Coats MD Other Provider Active Start : August 22, 2024 Dr. Dimas Alvarenga MD Other Provider Active Start: August 22, 2024 Dr. Kashif Berg MD Other Provider Active Start : August 22, 2024 Dr. Elizabeth Wilson MD Other Provider Active Star t: August 22, 2024 Dr. Aric Leon MD Other Provider Active Sta rt: August 22, 2024 Dr. Ashanti Dugan MD Other Provider Active Sta rt: August 22, 2024 Dr. Mitch Pinzon MD Other Provider Active Star t: August 22, 2024 Dr. Rajeev Dalton MD Other Provider Active St art: August 22, 2024 Dr. Roberto Escalante MD Other Provider Active Star t: August 22, 2024 Dr. Nikolai Keller DO Other Provider Active St art: August 22, 2024 Dr. Leyda Fischer MD Other Provider Active Start: August 22, 2024 Dr. Yolie Zapata MD Other Provider Active St art: August 22, 2024 Dr. Dao Avila DO Other Provider Active Start: August 22, 2024 Dr. Madi Tavarez MD Other Provider Active Star t: August 22, 2024 Dr. Zhang Concepcion MD Other Provider Active Sta rt: August 22, 2024 Team Status: Active Member Role/Relationship Status Dates Dr. Donna Will MD Primary Care Provider Active Start: August 23, 2024 Dr. Terry Singh DO Emergency Provider Active Start: August 23, 2024 Dr. Clive Sharp MD Admit Provider Active Sta rt: August 23, 2024 Dr. Clive Sharp MD Attending Provider Active Start: August 23, 2024 Dr. Clive Sharp MD Other Provider Active Sta rt: August 23, 2024 Dr. Isaias Granados MD Other Provider Active Start: August 23, 2024 Dr. Cisco Cortés MD Other Provider Active Start: August 23, 2024 Dr. Alexi Roblero MD Other Provider Active Star t: August 23, 2024 Dr. Anthony Singleton DO Other Provider Active Start : August 23, 2024 Dr. Jordan Alonzo MD Other Provider Active Sta rt: August 23, 2024 Dr. Meet Mckeon MD Other Provider Active St art: August 23, 2024 Dr. Carlito Cárdenas MD Other Provider Active S tart: August 23, 2024 Dr. Claudine Andrade MD Other Provider Active Start: August 23, 2024 Dr. Marvin Coats MD Other Provider Active Start : August 23, 2024 Dr. Dimas Alvarenga MD Other Provider Active Start: August 23, 2024 Dr. Kashif Berg MD Other Provider Active Start : August 23, 2024 Dr. Elizabeth Wilson MD Other Provider Active Star t: August 23, 2024 Dr. Aric Leon MD Other Provider Active Sta rt: August 23, 2024 Dr. Ashanti Dugan MD Other Provider Active Sta rt: August 23, 2024 Dr. Mitch Pinzon MD Other Provider Active Star t: August 23, 2024 Dr. Rajeev Dalton MD Other Provider Active St art: August 23, 2024 Dr. Roberto Escalante MD Other Provider Active Star t: August 23, 2024 Dr. Nikolai Keller DO Other Provider Active St art: August 23, 2024 Dr. Leyda Fischer MD Other Provider Active Start: August 23, 2024 Dr. Yolie Zapata MD Other Provider Active St art: August 23, 2024 Dr. Dao Avila DO Other Provider Active Start: August 23, 2024 Dr. Madi Tavarez MD Other Provider Active Star t: August 23, 2024 Dr. Zhang Concepcion MD Other Provider Active Sta rt: August 23, 2024 Dr. Kee York MD Other Provider Active S tart: August 23, 2024 Team Status: Active Member Role/Relationship Status Dates Dr. Donna Will MD Primary Care Provider Active Start: August 23, 2024 Dr. Warren Murray MD Attending Provider Active Start: August 23, 2024 Team Status: Active Member Role/Relationship Status Dates Dr. Donna Will MD Primary Care Provider Active Start: August 24, 2024 Dr. Terry Singh DO Emergency Provider Active Start: August 24, 2024 Dr. Clive Sharp MD Admit Provider Active Sta rt: August 24, 2024 Dr. Clive Sharp MD Attending Provider Active Start: August 24, 2024 Dr. Clive Sharp MD Other Provider Active Sta rt: August 24, 2024 Dr. Isaias Granados MD Other Provider Active Start: August 24, 2024 Dr. Cisco Cortés MD Other Provider Active Start: August 24, 2024 Dr. Alexi Roblero MD Other Provider Active Star t: August 24, 2024 Dr. Anthony Singleton DO Other Provider Active Start : August 24, 2024 Dr. Jordan Alonzo MD Other Provider Active Sta rt: August 24, 2024 Dr. Meet Mckeon MD Other Provider Active St art: August 24, 2024 Dr. Carlito Cárdenas MD Other Provider Active S tart: August 24, 2024 Dr. Claudine Andrade MD Other Provider Active Start: August 24, 2024 Dr. Marvin Coats MD Other Provider Active Start : August 24, 2024 Dr. Dimas Alvarenga MD Other Provider Active Start: August 24, 2024 Dr. Kashif Berg MD Other Provider Active Start : August 24, 2024 Dr. Elizabeth Wilson MD Other Provider Active Star t: August 24, 2024 Dr. Aric Leon MD Other Provider Active Sta rt: August 24, 2024 Dr. Ashanti Dugan MD Other Provider Active Sta rt: August 24, 2024 Dr. Mitch Pinzon MD Other Provider Active Star t: August 24, 2024 Dr. Rajeev Dalton MD Other Provider Active St art: August 24, 2024 Dr. Roberto Escalante MD Other Provider Active Star t: August 24, 2024 Dr. Nikolai Keller DO Other Provider Active St art: August 24, 2024 Dr. Leyda Fischer MD Other Provider Active Start: August 24, 2024 Dr. Yloie Zapata MD Other Provider Active St art: August 24, 2024 Dr. Dao Avila DO Other Provider Active Start: August 24, 2024 Dr. Madi Tavarez MD Other Provider Active Star t: August 24, 2024 Dr. Zhang Concepcion MD Other Provider Active Sta rt: August 24, 2024 Dr. Kee York MD Other Provider Active S tart: August 24, 2024 Dr. Jordan Davis DO Other Provider Active Sta rt: August 24, 2024 Dr. Adriana Goel MD Other Provider Active Start : August 24, 2024 Dr. Farida Todd MD Other Provider Active St art: August 24, 2024 Linda Huizar NP-C Other Provider Active Sta rt: August 24, 2024 Katelynn Greenberg NP, [employer] Other Provider Active Start: August 24, 2024 YANELIS Ley Other Provider Active Start: Cleo rios 2024 Team Status: Active Member Role/Relationship Status Dates Dr. Donna Will MD Primary Care Provider Active Start: August 25, 2024 Dr. Terry Singh DO Emergency Provider Active Start: August 25, 2024 Dr. Clive Sharp MD Admit Provider Active Sta rt: August 25, 2024 Dr. Clive Sharp MD Attending Provider Active Start: August 25, 2024 Dr. Clive Sharp MD Other Provider Active Sta rt: August 25, 2024 Dr. Isaias Granados MD Other Provider Active Start: August 25, 2024 Dr. Cisco Cortés MD Other Provider Active Start: August 25, 2024 Dr. Alexi Roblero MD Other Provider Active Star t: August 25, 2024 Dr. Anthony Singleton , Other Provider Active Start : August 25, 2024 Dr. Jordan Alonzo MD Other Provider Active Sta rt: August 25, 2024 Dr. Meet Mckeon MD Other Provider Active St art: August 25, 2024 Dr. Carlito Cárdenas MD Other Provider Active S tart: August 25, 2024 Dr. Claudine Andrade MD Other Provider Active Start: August 25, 2024 Dr. Marvin Coats MD Other Provider Active Start : August 25, 2024 Dr. Dimas Alvarenga MD Other Provider Active Start: August 25, 2024 Dr. Kashif Berg MD Other Provider Active Start : August 25, 2024 Dr. Elizabeth Wilson MD Other Provider Active Star t: August 25, 2024 Dr. Aric Leon MD Other Provider Active Sta rt: August 25, 2024 Dr. Ashanti Dugan MD Other Provider Active Sta rt: August 25, 2024 Dr. Mitch Pinzon MD Other Provider Active Star t: August 25, 2024 Dr. Rajeev Dalton MD Other Provider Active St art: August 25, 2024 Dr. Roberto Escalante MD Other Provider Active Star t: August 25, 2024 Dr. Nikolai Keller DO Other Provider Active St art: August 25, 2024 Dr. Leyda Fischer MD Other Provider Active Start: August 25, 2024 Dr. Yolie Zapata MD Other Provider Active St art: August 25, 2024 Dr. Dao Avila DO Other Provider Active Start: August 25, 2024 Dr. Madi Tavarez MD Other Provider Active Star t: August 25, 2024 Dr. Zhang Concepcion MD Other Provider Active Sta rt: August 25, 2024 Dr. Kee York MD Other Provider Active S tart: August 25, 2024 Dr. Jordan Davis , Other Provider Active Sta rt: August 25, 2024 Dr. Adriana Goel MD Other Provider Active Start : August 25, 2024 Dr. Farida Todd MD Other Provider Active St art: August 25, 2024 Linda Huizar , [employer] Other Provider Active Sta rt: August 25, 2024 Katelynn Greenberg NP, [employer] Other Provider Active Start: August 25, 2024 YANELIS Ley Other Provider Active Start: J 2024 Team Status: Active Member Role/Relationship Status Dates OLEG PIÑA NP-C Primary Care Provider Active Start: September 13, 2024 Dr. Tobi Zapata MD Attending Provider Active S tart: September 13, 2024 Dr. Tobi Zapata MD Referring Provider Active S tart: September 13, 2024 Team Status: Inactive Member Role/Relationship Status Dates Dr. Donna Will MD Primary Care Provider Active Start: September 13, 2024 End: September 13, 2024 Dr. Donna Will MD Referring Provider Active Start: September 13, 2024 End: September 13, 2024 Dr. Tobi Zapata MD Attending Provider Active S tart: September 13, 2024 End: September 13, 2024 Team Status: Inactive Member Role/Relationship Status Dates Dr. Donna Will MD Primary [...] June 25, 2024 Team Status: Active Member Role/Relationship Status Dates Dr. Donna Will MD Primary [...] June 21, 2024 Team Status: Active Member Role/Relationship Status Dates Dr. Donna Will MD Primary Care Provider Active Start: June 21, 2024 Dr. Eva Marie , Emergency Provider Active Start: June 21, 2024 [...] t: June 21, 2024 Dr. Anthony Singleton DO Attending Provider Active S tart: June 21, [...] June 21, 2024 Team Status: Active Member Role/Relationship Status Dates Dr. Donna Will MD Primary Care Provider Active Start: June 21, 2024 Dr. Marco Dang MD Attending Provider Active S tart: June 21, 2024 Dr. Mable Pritchard MD Referring Provider Active Start: June 21, 2024 Team Status: Active Member Role/Relationship Status Dates Dr. Donna Will MD Primary [...] June 22, 2024 Team Status: Active Member Role/Relationship Status Dates Dr. Donna Will MD Primary [...] June 22, 2024 Team Status: Active Member Role/Relationship Status Dates Dr. Donna Will MD Primary Care Provider Active Start: June 22, 2024 Dr. Chicho Carson MD Attending Provider Activ e Start: June 22, 2024 Team Status: Active Member Role/Relationship Status Dates Dr. Donna Will MD Primary [...] June 23, 2024 Team Status: Active Member Role/Relationship Status Dates Dr. Donna Will MD Primary [...] June 23, 2024 Team Status: Active Member Role/Relationship Status Dates Dr. Donna Will MD Primary [...] June 24, 2024 Team Status: Active Member Role/Relationship Status Dates Dr. Donna Will MD Primary [...] Active Start: June 25, 2024 Team Status: Inactive Member Role/Relationship Status Dates Dr. Donna Will MD Primary Care Provider Active Start: June 29, 2024 End: June 29, 2024 Dr. Wilberto Villafuerte MD Attending Provider Active Start: June 29, 2024 End: June 29, 2024 Dr. Wilberto Villafuerte MD Referring Provider Active Start: June 29, 2024 End: June 29, 2024 Team Status: Inactive Member Role/Relationship Status Dates Dr. Donna Will MD Primary Care Provider Active Start: June 30, 2024 End: June 30, 2024 Dr. Donna Will MD Attending Provider Active Start: June 30, 2024 End: June 30, 2024 Team Status: Inactive Member Role/Relationship Status Dates Dr. Donna Will MD Primary Care Provider Active Start: July 05, 2024 End: July 05, 2024 Dr. Wilberto Villafuerte MD Attending Provider Active Start: July 05, 2024 End: July 05, 2024 Dr. Wilberto Villafuerte MD Referring Provider Active Start: July 05, 2024 End: July 05, 2024 Team Status: Inactive Member Role/Relationship Status Dates Dr. Donna Will MD Primary Care Provider Active Start: July 08, 2024 End: July 08, 2024 Dr. Marco Hoffman DO Attending Provider Active Start: July 08, 2024 End: July 08, 2024 Dr. Marco Hoffman DO Emergency Provider Active Start: July 08, 2024 End: July 08, 2024 Team Status: Inactive Member Role/Relationship Status Dates Dr. Donna Will MD Primary Care Provider Active Start: July 12, 2024 End: July 12, 2024 SORIN Gore Attending Provider Active Start: July 12, 2024 End: July 12, 2024 SORIN Gore Referring Provider Active Start: July 12, 2024 End: July 12, 2024 Team Status: Active Member Role/Relationship Status Dates Dr. Donna Will MD Primary Care Provider Active Start: July 12, 2024 Dr. Anthony Singleton DO Attending Provider Active S tart: July 12, 2024 Gris Naik NP-C Referring Provider Active Start: July 12, 2024 Team Status: Inactive Member Role/Relationship Status Dates Dr. Donna Will MD Primary Care Provider Active Start: July 14, 2024 End: July 14, 2024 Dr. Wilberto Villafuerte MD Attending Provider Active Start: July 14, 2024 End: July 14, 2024 Dr. Wilberto Villafuerte MD Referring Provider Active Start: July 14, 2024 End: July 14, 2024 Team Status: Inactive Member Role/Relationship Status Dates Dr. Donna Will MD Primary Care Provider Active Start: July 20, 2024 End: July 20, 2024 Dr. Donna Will MD Referring Provider Active Start: July 20, 2024 End: July 20, 2024 Dr. Tobi Zapata MD Attending Provider Active S tart: July 20, 2024 End: July 20, 2024 Team Status: Inactive Member Role/Relationship Status Dates Dr. Donna Will MD Primary Care Provider Active Start: July 21, 2024 End: July 21, 2024 Dr. Wilberto Villafuerte MD Attending Provider Active Start: July 21, 2024 End: July 21, 2024 Team Status: Inactive Member Role/Relationship Status Dates Dr. Donna Will MD Primary Care Provider Active Start: July 23, 2024 End: July 23, 2024 Dr. Tobi Zapata MD Attending Provider Active S tart: July 23, 2024 End: July 23, 2024 Dr. Tobi Zapata MD Referring Provider Active S tart: July 23, 2024 End: July 23, 2024 Team Status: Inactive Member Role/Relationship Status Dates Dr. Donna Will MD Primary Care Provider Active Start: August 21, 2024 End: August 25, 2024 Dr. Terry Singh DO Emergency Provider Active Start: August 21, 2024 End: August 25, 2024 Dr. Clive Sharp MD Admit Provider Active Sta rt: August 21, 2024 End: August 25, 2024 Dr. Clive Sharp MD Attending Provider Active Start: August 21, 2024 End: August 25, 2024 Dr. Isaias Granados MD Other Provider Active Start: August 21, 2024 End: August 25, 2024 Dr. Cisco Cortés MD Other Provider Active Start: August 21, 2024 End: August 25, 2024 Dr. Alexi Roblero MD Other Provider Active Star t: August 21, 2024 End: August 25, 2024 Dr. Anthony Singleton DO Other Provider Active Start : August 21, 2024 End: August 25, 2024 Dr. Jordan Alonzo MD Other Provider Active Sta rt: August 21, 2024 End: August 25, 2024 Dr. Meet Mckeon MD Other Provider Active St art: August 21, 2024 End: August 25, 2024 Dr. Carlito Cárdenas MD Other Provider Active S tart: August 21, 2024 End: August 25, 2024 Dr. Claudine Andrade MD Other Provider Active Start: August 21, 2024 End: August 25, 2024 Dr. Marvin Coats MD Other Provider Active Start : August 21, 2024 End: August 25, 2024 Dr. Dimas Alvarenga MD Other Provider Active Start: August 21, 2024 End: August 25, 2024 Dr. Kashif Berg MD Other Provider Active Start : August 21, 2024 End: August 25, 2024 Dr. Elizabeth Wilson MD Other Provider Active Star t: August 21, 2024 End: August 25, 2024 Dr. Aric Leon MD Other Provider Active Sta rt: August 21, 2024 End: August 25, 2024 Dr. Ashanti Dugan MD Other Provider Active Sta rt: August 21, 2024 End: August 25, 2024 Dr. Mitch Pinzon MD Other Provider Active Star t: August 21, 2024 End: August 25, 2024 Dr. Rajeev Dalton MD Other Provider Active St art: August 21, 2024 End: August 25, 2024 Dr. Roberto Escalante MD Other Provider Active Star t: August 21, 2024 End: August 25, 2024 Dr. Nikolai Keller , Other Provider Active St art: August 21, 2024 End: August 25, 2024 Dr. Leyda Fischer MD Other Provider Active Start: August 21, 2024 End: August 25, 2024 Dr. Yolie Zapata MD Other Provider Active St art: August 21, 2024 End: August 25, 2024 Dr. Dao Avila DO Other Provider Active Start: August 21, 2024 End: August 25, 2024 Dr. Madi Tavarez MD Other Provider Active Star t: August 21, 2024 End: August 25, 2024 Dr. Zhang Concepcion MD Other Provider Active Sta rt: August 21, 2024 End: August 25, 2024 Dr. Kee York MD Other Provider Active S tart: August 21, 2024 End: August 25, 2024 Dr. Jordan Davis , Other Provider Active Sta rt: August 21, 2024 End: August 25, 2024 Dr. Adriana Goel MD Other Provider Active Start : August 21, 2024 End: August 25, 2024 Dr. Farida Todd MD Other Provider Active St art: August 21, 2024 End: August 25, 2024 Linda Huizar NP-C Other Provider Active Sta rt: August 21, 2024 End: August 25, 2024 Katelynn Greenberg NP, [employer] Other Provider Active Start: August 21, 2024 End: August 25, 2024 YANELIS Ley Other Provider Active Start: 2024 End: August 25, 2024 Team Status: Active Member Role/Relationship Status Dates Dr. Donna Will MD Primary Care Provider Active Start: August 21, 2024 Dr. Terry Singh DO Emergency Provider Active Start: August 21, 2024 Dr. Clive Sharp MD Admit Provider Active Sta rt: August 21, 2024 Dr. Clive Sharp MD Attending Provider Active Start: August 21, 2024 Dr. Clive Sharp MD Other Provider Active Sta rt: August 21, 2024 Team Status: Active Member Role/Relationship Status Dates Dr. Donna Will MD Primary Care Provider Active Start: August 22, 2024 Dr. Terry Singh DO Emergency Provider Active Start: August 22, 2024 Dr. Clive Sharp MD Admit Provider Active Sta rt: August 22, 2024 Dr. Clive Sharp MD Attending Provider Active Start: August 22, 2024 Dr. Clive Sharp MD Other Provider Active Sta rt: August 22, 2024 Dr. Isaias Granados MD Other Provider Active Start: August 22, 2024 Dr. Cisco Cortés MD Other Provider Active Start: August 22, 2024 Dr. Alexi Roblero MD Other Provider Active Star t: August 22, 2024 Dr. Anthony Singleton DO Other Provider Active Start : August 22, 2024 Dr. Jordan Alonzo MD Other Provider Active Sta rt: August 22, 2024 Dr. Meet Mckeon MD Other Provider Active St art: August 22, 2024 Dr. Carlito Cárdenas MD Other Provider Active S tart: August 22, 2024 Dr. Claudine Andrade MD Other Provider Active Start: August 22, 2024 Dr. Marvin Coats MD Other Provider Active Start : August 22, 2024 Dr. Dimas Alvarenga MD Other Provider Active Start: August 22, 2024 Dr. Kashif Berg MD Other Provider Active Start : August 22, 2024 Dr. Elizabeth Wilson MD Other Provider Active Star t: August 22, 2024 Dr. Aric Leon MD Other Provider Active Sta rt: August 22, 2024 Dr. Ashanti Dugan MD Other Provider Active Sta rt: August 22, 2024 Dr. Mitch Pinzon MD Other Provider Active Star t: August 22, 2024 Dr. Rajeev Dalton MD Other Provider Active St art: August 22, 2024 Dr. Roberto Escalante MD Other Provider Active Star t: August 22, 2024 Dr. Nikolai Keller DO Other Provider Active St art: August 22, 2024 Dr. Leyda Fischer MD Other Provider Active Start: August 22, 2024 Dr. Yolie Zapata MD Other Provider Active St art: August 22, 2024 Dr. Dao Avila DO Other Provider Active Start: August 22, 2024 Dr. Madi Tavarez MD Other Provider Active Star t: August 22, 2024 Dr. Zhang Concepcion MD Other Provider Active Sta rt: August 22, 2024 Team Status: Active Member Role/Relationship Status Dates Dr. Donna Will MD Primary Care Provider Active Start: August 23, 2024 Dr. Terry Singh DO Emergency Provider Active Start: August 23, 2024 Dr. Clive Sharp MD Admit Provider Active Sta rt: August 23, 2024 Dr. Clive Sharp MD Attending Provider Active Start: August 23, 2024 Dr. Clive Sharp MD Other Provider Active Sta rt: August 23, 2024 Dr. Isaias Granados MD Other Provider Active Start: August 23, 2024 Dr. Cisco Cortés MD Other Provider Active Start: August 23, 2024 Dr. Alexi Roblero MD Other Provider Active Star t: August 23, 2024 Dr. Anthony Singleton DO Other Provider Active Start : August 23, 2024 Dr. Jordan Alonzo MD Other Provider Active Sta rt: August 23, 2024 Dr. Meet Mckeon MD Other Provider Active St art: August 23, 2024 Dr. Carlito Cárdenas MD Other Provider Active S tart: August 23, 2024 Dr. Claudine Andarde MD Other Provider Active Start: August 23, 2024 Dr. Marvin Coats MD Other Provider Active Start : August 23, 2024 Dr. Dimas Alvarenga MD Other Provider Active Start: August 23, 2024 Dr. Kashif Berg MD Other Provider Active Start : August 23, 2024 Dr. Elizabeth Wilson MD Other Provider Active Star t: August 23, 2024 Dr. Aric Leon MD Other Provider Active Sta rt: August 23, 2024 Dr. Ashanti Dugan MD Other Provider Active Sta rt: August 23, 2024 Dr. Mitch Pinzon MD Other Provider Active Star t: August 23, 2024 Dr. Rajeev Dalton MD Other Provider Active St art: August 23, 2024 Dr. Roberto Escalante MD Other Provider Active Star t: August 23, 2024 Dr. Nikolai Keller DO Other Provider Active St art: August 23, 2024 Dr. Leyda Fischer MD Other Provider Active Start: August 23, 2024 Dr. Yolie Zapata MD Other Provider Active St art: August 23, 2024 Dr. Dao Avila DO Other Provider Active Start: August 23, 2024 Dr. Madi Tavarez MD Other Provider Active Star t: August 23, 2024 Dr. Zhang Concepcion MD Other Provider Active Sta rt: August 23, 2024 Dr. Kee York MD Other Provider Active S tart: August 23, 2024 Team Status: Active Member Role/Relationship Status Dates Dr. Donna Will MD Primary Care Provider Active Start: August 23, 2024 Dr. Warren Murray MD Attending Provider Active Start: August 23, 2024 Team Status: Active Member Role/Relationship Status Dates Dr. oDnna Will MD Primary Care Provider Active Start: August 24, 2024 Dr. Terry Singh DO Emergency Provider Active Start: August 24, 2024 Dr. Clive Sharp MD Admit Provider Active Sta rt: August 24, 2024 Dr. Clive Sharp MD Attending Provider Active Start: August 24, 2024 Dr. Clive Sharp MD Other Provider Active Sta rt: August 24, 2024 Dr. Isaias Granados MD Other Provider Active Start: August 24, 2024 Dr. Cisco Cortés MD Other Provider Active Start: August 24, 2024 Dr. Alexi Roblero MD Other Provider Active Star t: August 24, 2024 Dr. Anthony Singleton DO Other Provider Active Start : August 24, 2024 Dr. Jordan Alonzo MD Other Provider Active Sta rt: August 24, 2024 Dr. Meet Mckeon MD Other Provider Active St art: August 24, 2024 Dr. Carlito Cárdenas MD Other Provider Active S tart: August 24, 2024 Dr. Claudine Andrade MD Other Provider Active Start: August 24, 2024 Dr. Marvin Coats MD Other Provider Active Start : August 24, 2024 Dr. Dimas Alvarenga MD Other Provider Active Start: August 24, 2024 Dr. Kashif Berg MD Other Provider Active Start : August 24, 2024 Dr. Elizabeth Wilson MD Other Provider Active Star t: August 24, 2024 Dr. Aric Leon MD Other Provider Active Sta rt: August 24, 2024 Dr. Ashanti Dugan MD Other Provider Active Sta rt: August 24, 2024 Dr. Mitch Pinzon MD Other Provider Active Star t: August 24, 2024 Dr. Rajeev Dalton MD Other Provider Active St art: August 24, 2024 Dr. Roberto Escalante MD Other Provider Active Star t: August 24, 2024 Dr. Nikolai Keller DO Other Provider Active St art: August 24, 2024 Dr. Leyda Fischer MD Other Provider Active Start: August 24, 2024 Dr. Yolie Zapata MD Other Provider Active St art: August 24, 2024 Dr. Dao Avila DO Other Provider Active Start: August 24, 2024 Dr. Madi Tavarez MD Other Provider Active Star t: August 24, 2024 Dr. Zhang Concepcion MD Other Provider Active Sta rt: August 24, 2024 Dr. Kee York MD Other Provider Active S tart: August 24, 2024 Dr. Jordan Davis DO Other Provider Active Sta rt: August 24, 2024 Dr. Adriana Goel MD Other Provider Active Start : August 24, 2024 Dr. Farida Todd MD Other Provider Active St art: August 24, 2024 Linda Huizar NP-C Other Provider Active Sta rt: August 24, 2024 Katelynn Greenberg NP, [employer] Other Provider Active Start: August 24, 2024 YANELIS Ley Other Provider Active Start: Cleo rios 2024 Team Status: Active Member Role/Relationship Status Dates Dr. Donna Will MD Primary Care Provider Active Start: August 25, 2024 Dr. Terry Singh DO Emergency Provider Active Start: August 25, 2024 Dr. Clive Sharp MD Admit Provider Active Sta rt: August 25, 2024 Dr. Clive Sharp MD Attending Provider Active Start: August 25, 2024 Dr. Clive Sharp MD Other Provider Active Sta rt: August 25, 2024 Dr. Isaias Granados MD Other Provider Active Start: August 25, 2024 Dr. Cisco Cortés MD Other Provider Active Start: August 25, 2024 Dr. Alexi Roblero MD Other Provider Active Star t: August 25, 2024 Dr. Anthony Singleton , Other Provider Active Start : August 25, 2024 Dr. Jordan Alonzo MD Other Provider Active Sta rt: August 25, 2024 Dr. Meet Mckeon MD Other Provider Active St art: August 25, 2024 Dr. Carlito Cárdenas MD Other Provider Active S tart: August 25, 2024 Dr. Claudine Andrade MD Other Provider Active Start: August 25, 2024 Dr. Marvin Coats MD Other Provider Active Start : August 25, 2024 Dr. Dimas Alvarenga MD Other Provider Active Start: August 25, 2024 Dr. Kashif Berg MD Other Provider Active Start : August 25, 2024 Dr. Elizabeth Wilson MD Other Provider Active Star t: August 25, 2024 Dr. Aric Leon MD Other Provider Active Sta rt: August 25, 2024 Dr. Ashanti Dugan MD Other Provider Active Sta rt: August 25, 2024 Dr. Mitch Pinzon MD Other Provider Active Star t: August 25, 2024 Dr. Rajeev Dalton MD Other Provider Active St art: August 25, 2024 Dr. Roberto Escalante MD Other Provider Active Star t: August 25, 2024 Dr. Nikolai Keller DO Other Provider Active St art: August 25, 2024 Dr. Leyda Fischer MD Other Provider Active Start: August 25, 2024 Dr. Yolie Zapata MD Other Provider Active St art: August 25, 2024 Dr. Dao Avila DO Other Provider Active Start: August 25, 2024 Dr. Madi Tavarez MD Other Provider Active Star t: August 25, 2024 Dr. Zhang Concepcion MD Other Provider Active Sta rt: August 25, 2024 Dr. Kee York MD Other Provider Active S tart: August 25, 2024 Dr. Jordan Davis DO Other Provider Active Sta rt: August 25, 2024 Dr. Adriana Goel MD Other Provider Active Start : August 25, 2024 Dr. Farida Todd MD Other Provider Active St art: August 25, 2024 Linda Huizar , [employer] Other Provider Active Sta rt: August 25, 2024 Katelynn Greenberg NP, [employer] Other Provider Active Start: August 25, 2024 YANELIS Ley Other Provider Active Start: Cleo [id number] Team Status: Active Member Role/Relationship Status Dates OLEG PIÑA [employer] Primary Care Provider Active Start: September 13, 2024 Dr. Tobi Zapata MD Attending Provider Active S tart: September 13, 2024 Dr. Tobi Zapata MD Referring Provider Active S tart: September 13, 2024 Team Status: Inactive Member Role/Relationship Status Dates Dr. Donna Will MD Primary Care Provider Active Start: September 13, 2024 End: September 13, 2024 Dr. Donna Will MD Referring Provider Active Start: September 13, 2024 End: September 13, 2024 Dr. Tobi Zapata MD Attending Provider Active S tart: September 13, 2024 End: September 13, 2024 Team Status: Inactive Member Role/Relationship Status Dates Dr. Donna Will MD Primary Care Provider Active Start: September 16, 2024 End: September 16, 2024 Dr. Donna Will MD Attending Provider Active Start: September 16, 2024 End: September 16, 2024 Team Status: Active Member Role/Relationship Status Dates Dr. Donna Will MD Primary Care Provider Active Start: September 24, 2024 Dr. Donna Will MD Attending Provider Active Start: September 24, 2024 Dr. Donna Will MD Referring Provider Active Start: September 24, 2024 Team Status: Inactive Member Role/Relationship Status Dates Dr. Donna Will MD Primary Care Provider Active Start: September 24, 2024 End: September 24, 2024 Dr. Donna Will MD Referring Provider Active Start: September 24, 2024 End: September 24, 2024 SORIN Gore Attending Provider Active Start: September 24, 2024 End: September 24, 2024 Team Status: Inactive Member Role/Relationship Status Dates Dr. Donna Will MD Primary Care Provider Active Start: September 24, 2024 End: September 24, 2024 Dr. Donna Will MD Attending Provider Active Start: September 24, 2024 End: September 24, 2024 Dr. Donna Will MD Referring Provider Active Start: September 24, 2024 End: September 24, 2024 Team Status: Inactive Member Role/Relationship Status Dates Dr. Donna Will MD Primary Care Provider Active Start: October 08, 2024 End: October 08, 2024 Dr. Donna Will MD Referring Provider Active Start: October 08, 2024 End: October 08, 2024 Elizabeth Velazquez PA, PA Attending Provider Active Start: October 08, 2024 End: October 08, 2024 Team Status: Active Member Role/Relationship Status Dates Dr. Donna Will MD Primary [...] June 22, 2024 Team Status: Active Member Role/Relationship Status Dates Dr. Donna Will MD Primary [...] June 22, 2024 Team Status: Active Member Role/Relationship Status Dates Dr. Donna Will MD Primary Care Provider Active Start: June 22, 2024 Dr. Chicho Carson MD Attending Provider Activ e Start: June 22, 2024 Team Status: Active Member Role/Relationship Status Dates Dr. Donna Will MD Primary [...] June 23, 2024 Team Status: Active Member Role/Relationship Status Dates Dr. Donna Will MD Primary [...] June 23, 2024 Team Status: Active Member Role/Relationship Status Dates Dr. Donna Will MD Primary [...] June 24, 2024 Team Status: Active Member Role/Relationship Status Dates Dr. Donna Will MD Primary [...] Active Start: June 25, 2024 Team Status: Inactive Member Role/Relationship Status Dates Dr. Donna Will MD Primary Care Provider Active Start: June 29, 2024 End: June 29, 2024 Dr. Wilberto Villafuerte MD Attending Provider Active Start: June 29, 2024 End: June 29, 2024 Dr. Wilberto Villafuerte MD Referring Provider Active Start: June 29, 2024 End: June 29, 2024 Team Status: Inactive Member Role/Relationship Status Dates Dr. Donna Will MD Primary Care Provider Active Start: June 30, 2024 End: June 30, 2024 Dr. Donna Will MD Attending Provider Active Start: June 30, 2024 End: June 30, 2024 Team Status: Inactive Member Role/Relationship Status Dates Dr. Donna Will MD Primary Care Provider Active Start: July 05, 2024 End: July 05, 2024 Dr. Wilberto Villafuerte MD Attending Provider Active Start: July 05, 2024 End: July 05, 2024 Dr. Wilberto Villafuerte MD Referring Provider Active Start: July 05, 2024 End: July 05, 2024 Team Status: Inactive Member Role/Relationship Status Dates Dr. Donna Will MD Primary Care Provider Active Start: July 08, 2024 End: July 08, 2024 Dr. Marco Hoffman DO Attending Provider Active Start: July 08, 2024 End: July 08, 2024 Dr. Marco Hoffman DO Emergency Provider Active Start: July 08, 2024 End: July 08, 2024 Team Status: Inactive Member Role/Relationship Status Dates Dr. Donna Will MD Primary Care Provider Active Start: July 12, 2024 End: July 12, 2024 SORIN Gore Attending Provider Active Start: July 12, 2024 End: July 12, 2024 SORIN Gore Referring Provider Active Start: July 12, 2024 End: July 12, 2024 Team Status: Active Member Role/Relationship Status Dates Dr. Donna Will MD Primary Care Provider Active Start: July 12, 2024 Dr. Anthony Singleton DO Attending Provider Active S tart: July 12, 2024 SORIN Gore Referring Provider Active Start: July 12, 2024 Team Status: Inactive Member Role/Relationship Status Dates Dr. Donna Will MD Primary Care Provider Active Start: July 12, 2024 End: July 12, 2024 SORIN Gore Attending Provider Active Start: July 12, 2024 End: July 12, 2024 SORIN Gore Referring Provider Active Start: July 12, 2024 End: July 12, 2024 Team Status: Inactive Member Role/Relationship Status Dates Dr. Donna Wlil MD Primary Care Provider Active Start: July 14, 2024 End: July 14, 2024 Dr. Wilberto Villafuerte MD Attending Provider Active Start: July 14, 2024 End: July 14, 2024 Dr. Wilberto Villafuerte MD Referring Provider Active Start: July 14, 2024 End: July 14, 2024 Team Status: Inactive Member Role/Relationship Status Dates Dr. Donna Will MD Primary Care Provider Active Start: July 20, 2024 End: July 20, 2024 Dr. Donna Will MD Referring Provider Active Start: July 20, 2024 End: July 20, 2024 Dr. Tobi Zapata MD Attending Provider Active S tart: July 20, 2024 End: July 20, 2024 Team Status: Inactive Member Role/Relationship Status Dates Dr. Donna Will MD Primary Care Provider Active Start: July 21, 2024 End: July 21, 2024 Dr. Wilberto Villafuerte MD Attending Provider Active Start: July 21, 2024 End: July 21, 2024 Team Status: Inactive Member Role/Relationship Status Dates Dr. Donna Will MD Primary Care Provider Active Start: July 23, 2024 End: July 23, 2024 Dr. Tobi Zapata MD Attending Provider Active S tart: July 23, 2024 End: July 23, 2024 Dr. Tobi Zapata MD Referring Provider Active S tart: July 23, 2024 End: July 23, 2024 Team Status: Inactive Member Role/Relationship Status Dates Dr. Donna Will MD Primary Care Provider Active Start: August 21, 2024 End: August 25, 2024 Dr. Terry Singh DO Emergency Provider Active Start: August 21, 2024 End: August 25, 2024 Dr. Clive Sharp MD Admit Provider Active Sta rt: August 21, 2024 End: August 25, 2024 Dr. Clive Sharp MD Attending Provider Active Start: August 21, 2024 End: August 25, 2024 Dr. Isaias Granados MD Other Provider Active Start: August 21, 2024 End: August 25, 2024 Dr. Cisco Cortés MD Other Provider Active Start: August 21, 2024 End: August 25, 2024 Dr. Alexi Roblero MD Other Provider Active Star t: August 21, 2024 End: August 25, 2024 Dr. Anthony Singleton DO Other Provider Active Start : August 21, 2024 End: August 25, 2024 Dr. Jordan Alonzo MD Other Provider Active Sta rt: August 21, 2024 End: August 25, 2024 Dr. Meet Mckeon MD Other Provider Active St art: August 21, 2024 End: August 25, 2024 Dr. Carlito Cárdenas MD Other Provider Active S tart: August 21, 2024 End: August 25, 2024 Dr. Claudine Andrade MD Other Provider Active Start: August 21, 2024 End: August 25, 2024 Dr. Marvin Coats MD Other Provider Active Start : August 21, 2024 End: August 25, 2024 Dr. Dimas Alvarenga MD Other Provider Active Start: August 21, 2024 End: August 25, 2024 Dr. Kashif Berg MD Other Provider Active Start : August 21, 2024 End: August 25, 2024 Dr. Elizabeth Wilson MD Other Provider Active Star t: August 21, 2024 End: August 25, 2024 Dr. Aric Leon MD Other Provider Active Sta rt: August 21, 2024 End: August 25, 2024 Dr. Ashanti Dugan MD Other Provider Active Sta rt: August 21, 2024 End: August 25, 2024 Dr. Mitch Pinzon MD Other Provider Active Star t: August 21, 2024 End: August 25, 2024 Dr. Rajeev Dalton MD Other Provider Active St art: August 21, 2024 End: August 25, 2024 Dr. Roberto Escalante MD Other Provider Active Star t: August 21, 2024 End: August 25, 2024 Dr. Nikolai Keller , Other Provider Active St art: August 21, 2024 End: August 25, 2024 Dr. Leyda Fischer MD Other Provider Active Start: August 21, 2024 End: August 25, 2024 Dr. Yolie Zapata MD Other Provider Active St art: August 21, 2024 End: August 25, 2024 Dr. Dao Avila DO Other Provider Active Start: August 21, 2024 End: August 25, 2024 Dr. Madi Tavarez MD Other Provider Active Star t: August 21, 2024 End: August 25, 2024 Dr. Zhang Concepcion MD Other Provider Active Sta rt: August 21, 2024 End: August 25, 2024 Dr. Kee York MD Other Provider Active S tart: August 21, 2024 End: August 25, 2024 Dr. Jordan Davis DO Other Provider Active Sta rt: August 21, 2024 End: August 25, 2024 Dr. Adriana Goel MD Other Provider Active Start : August 21, 2024 End: August 25, 2024 Dr. Farida Todd MD Other Provider Active St art: August 21, 2024 End: August 25, 2024 Linda Huizar NP-C Other Provider Active Sta rt: August 21, 2024 End: August 25, 2024 Katelynn Greenberg NP, [employer] Other Provider Active Start: August 21, 2024 End: August 25, 2024 YANELIS Ley Other Provider Active Start: 2024 End: August 25, 2024 Team Status: Active Member Role/Relationship Status Dates Dr. Donna Will MD Primary Care Provider Active Start: August 21, 2024 Dr. Terry Singh DO Emergency Provider Active Start: August 21, 2024 Dr. Clive Sharp MD Admit Provider Active Sta rt: August 21, 2024 Dr. Clive Sharp MD Attending Provider Active Start: August 21, 2024 Dr. Clive Sharp MD Other Provider Active Sta rt: August 21, 2024 Team Status: Active Member Role/Relationship Status Dates Dr. Donna Will MD Primary Care Provider Active Start: August 22, 2024 Dr. Terry Singh DO Emergency Provider Active Start: August 22, 2024 Dr. Clive Sharp MD Admit Provider Active Sta rt: August 22, 2024 Dr. Clive Sharp MD Attending Provider Active Start: August 22, 2024 Dr. Clive Sharp MD Other Provider Active Sta rt: August 22, 2024 Dr. Isaias Granados MD Other Provider Active Start: August 22, 2024 Dr. Cisco Cortés MD Other Provider Active Start: August 22, 2024 Dr. Alexi Roblero MD Other Provider Active Star t: August 22, 2024 Dr. Anthony Singleton DO Other Provider Active Start : August 22, 2024 Dr. Jordan Alonzo MD Other Provider Active Sta rt: August 22, 2024 Dr. Meet Mckeon MD Other Provider Active St art: August 22, 2024 Dr. Carlito Cárdenas MD Other Provider Active S tart: August 22, 2024 Dr. Claudine Andrade MD Other Provider Active Start: August 22, 2024 Dr. Marvin Coats MD Other Provider Active Start : August 22, 2024 Dr. Dimas Alvarenga MD Other Provider Active Start: August 22, 2024 Dr. Kashif Berg MD Other Provider Active Start : August 22, 2024 Dr. Elizabeth Wilson MD Other Provider Active Star t: August 22, 2024 Dr. Aric Leon MD Other Provider Active Sta rt: August 22, 2024 Dr. Ashanti Dugan MD Other Provider Active Sta rt: August 22, 2024 Dr. Mitch Pinzon MD Other Provider Active Star t: August 22, 2024 Dr. Rajeev Dalton MD Other Provider Active St art: August 22, 2024 Dr. Roberto Escalante MD Other Provider Active Star t: August 22, 2024 Dr. Nikolai Keller DO Other Provider Active St art: August 22, 2024 Dr. Leyda Fischer MD Other Provider Active Start: August 22, 2024 Dr. Yolie Zapata MD Other Provider Active St art: August 22, 2024 Dr. Dao Avila DO Other Provider Active Start: August 22, 2024 Dr. Madi Tavarez MD Other Provider Active Star t: August 22, 2024 Dr. Zhang Concepcion MD Other Provider Active Sta rt: August 22, 2024 Team Status: Active Member Role/Relationship Status Dates Dr. Donna Will MD Primary Care Provider Active Start: August 23, 2024 Dr. Terry Singh DO Emergency Provider Active Start: August 23, 2024 Dr. Clive Sharp MD Admit Provider Active Sta rt: August 23, 2024 Dr. Clive Sharp MD Attending Provider Active Start: August 23, 2024 Dr. Clive Sharp MD Other Provider Active Sta rt: August 23, 2024 Dr. Isaias Granados MD Other Provider Active Start: August 23, 2024 Dr. Cisco Cortés MD Other Provider Active Start: August 23, 2024 Dr. Alexi Roblero MD Other Provider Active Star t: August 23, 2024 Dr. Anthony Singleton DO Other Provider Active Start : August 23, 2024 Dr. Jordan Alonzo MD Other Provider Active Sta rt: August 23, 2024 Dr. Meet Mckeon MD Other Provider Active St art: August 23, 2024 Dr. Carlito Cárdenas MD Other Provider Active S tart: August 23, 2024 Dr. Claudine Andrade MD Other Provider Active Start: August 23, 2024 Dr. Marvin Coats MD Other Provider Active Start : August 23, 2024 Dr. Dimas Alvarenga MD Other Provider Active Start: August 23, 2024 Dr. Kashif Berg MD Other Provider Active Start : August 23, 2024 Dr. Elizabeth Wilson MD Other Provider Active Star t: August 23, 2024 Dr. Aric Leon MD Other Provider Active Sta rt: August 23, 2024 Dr. Ashanti Dugan MD Other Provider Active Sta rt: August 23, 2024 Dr. Mitch Pinzon MD Other Provider Active Star t: August 23, 2024 Dr. Rajeev Dalton MD Other Provider Active St art: August 23, 2024 Dr. Roberto Escalante MD Other Provider Active Star t: August 23, 2024 Dr. Nikolai Keller DO Other Provider Active St art: August 23, 2024 Dr. Leyda Fischer MD Other Provider Active Start: August 23, 2024 Dr. Yolie Zapata MD Other Provider Active St art: August 23, 2024 Dr. Dao Avila DO Other Provider Active Start: August 23, 2024 Dr. Madi Tavarez MD Other Provider Active Star t: August 23, 2024 Dr. Zhang Concepcion MD Other Provider Active Sta rt: August 23, 2024 Dr. Kee York MD Other Provider Active S tart: August 23, 2024 Team Status: Active Member Role/Relationship Status Dates Dr. Donna Will MD Primary Care Provider Active Start: August 23, 2024 Dr. Warren Murray MD Attending Provider Active Start: August 23, 2024 Team Status: Active Member Role/Relationship Status Dates Dr. Donna Will MD Primary Care Provider Active Start: August 24, 2024 Dr. Terry Singh DO Emergency Provider Active Start: August 24, 2024 Dr. Clive Sharp MD Admit Provider Active Sta rt: August 24, 2024 Dr. Clive Sharp MD Attending Provider Active Start: August 24, 2024 Dr. Clive Sharp MD Other Provider Active Sta rt: August 24, 2024 Dr. Isaias Granados MD Other Provider Active Start: August 24, 2024 Dr. Cisco Cortés MD Other Provider Active Start: August 24, 2024 Dr. Alexi Roblero MD Other Provider Active Star t: August 24, 2024 Dr. Anthony Singleton DO Other Provider Active Start : August 24, 2024 Dr. Jordan Alonzo MD Other Provider Active Sta rt: August 24, 2024 Dr. Meet Mckeon MD Other Provider Active St art: August 24, 2024 Dr. Carlito Cárdenas MD Other Provider Active S tart: August 24, 2024 Dr. Claudine Andrade MD Other Provider Active Start: August 24, 2024 Dr. Marvin Coats MD Other Provider Active Start : August 24, 2024 Dr. Dimas Alvarenga MD Other Provider Active Start: August 24, 2024 Dr. Kashif Berg MD Other Provider Active Start : August 24, 2024 Dr. Elizabeth Wilson MD Other Provider Active Star t: August 24, 2024 Dr. Aric Leon MD Other Provider Active Sta rt: August 24, 2024 Dr. Ashanti Dugan MD Other Provider Active Sta rt: August 24, 2024 Dr. Mitch Pinzon MD Other Provider Active Star t: August 24, 2024 Dr. Rajeev Dalton MD Other Provider Active St art: August 24, 2024 Dr. Roberto Escalante MD Other Provider Active Star t: August 24, 2024 Dr. Nikolai Keller DO Other Provider Active St art: August 24, 2024 Dr. Leyda Fischer MD Other Provider Active Start: August 24, 2024 Dr. Yolie Zapata MD Other Provider Active St art: August 24, 2024 Dr. Dao Avila DO Other Provider Active Start: August 24, 2024 Dr. Madi Tavarez MD Other Provider Active Star t: August 24, 2024 Dr. Zhang Concepcion MD Other Provider Active Sta rt: August 24, 2024 Dr. Kee York MD Other Provider Active S tart: August 24, 2024 Dr. Jordan Davis DO Other Provider Active Sta rt: August 24, 2024 Dr. Adriana Goel MD Other Provider Active Start : August 24, 2024 Dr. Farida Todd MD Other Provider Active St art: August 24, 2024 Linda Huizar NP-C Other Provider Active Sta rt: August 24, 2024 Katelynn Greenberg NP, [employer] Other Provider Active Start: August 24, 2024 YAENLIS Ley Other Provider Active Start: Cleo gabriel 2024 Team Status: Active Member Role/Relationship Status Dates Dr. Donna Will MD Primary Care Provider Active Start: August 25, 2024 Dr. Terry Singh DO Emergency Provider Active Start: August 25, 2024 Dr. Clive Sharp MD Admit Provider Active Sta rt: August 25, 2024 Dr. Clive Sharp MD Attending Provider Active Start: August 25, 2024 Dr. Clive Sharp MD Other Provider Active Sta rt: August 25, 2024 Dr. Isaias Granados MD Other Provider Active Start: August 25, 2024 Dr. Cisco Cortés MD Other Provider Active Start: August 25, 2024 Dr. Alexi Roblero MD Other Provider Active Star t: August 25, 2024 Dr. Anthony Singleton , Other Provider Active Start : August 25, 2024 Dr. Jordan Alonzo MD Other Provider Active Sta rt: August 25, 2024 Dr. Meet Mckeon MD Other Provider Active St art: August 25, 2024 Dr. Carlito Cárdenas MD Other Provider Active S tart: August 25, 2024 Dr. Claudine Andrade MD Other Provider Active Start: August 25, 2024 Dr. Marvin Coats MD Other Provider Active Start : August 25, 2024 Dr. Dimas Alvarenga MD Other Provider Active Start: August 25, 2024 Dr. Kashif Berg MD Other Provider Active Start : August 25, 2024 Dr. Elizabeth Wilson MD Other Provider Active Star t: August 25, 2024 Dr. Aric Leon MD Other Provider Active Sta rt: August 25, 2024 Dr. Ashanti Dugan MD Other Provider Active Sta rt: August 25, 2024 Dr. Mitch Pinzon MD Other Provider Active Star t: August 25, 2024 Dr. Rajeev Dalton MD Other Provider Active St art: August 25, 2024 Dr. Roberto Escalante MD Other Provider Active Star t: August 25, 2024 Dr. Nikolai Keller , Other Provider Active St art: August 25, 2024 Dr. Leyda Fischer MD Other Provider Active Start: August 25, 2024 Dr. Yolie Zapata MD Other Provider Active St art: August 25, 2024 Dr. Dao Avila , Other Provider Active Start: August 25, 2024 Dr. Madi Tavarez MD Other Provider Active Star t: August 25, 2024 Dr. Zhang Concepcion MD Other Provider Active Sta rt: August 25, 2024 Dr. Kee York MD Other Provider Active S tart: August 25, 2024 Dr. Jordan Davis , Other Provider Active Sta rt: August 25, 2024 Dr. Adriana Goel MD Other Provider Active Start : August 25, 2024 Dr. Farida Todd MD Other Provider Active St art: August 25, 2024 Linda Huizar NP-C Other Provider Active Sta rt: August 25, 2024 Katelynn Greenberg NP, [employer] Other Provider Active Start: August 25, 2024 YANELIS Ley Other Provider Active Start: Cleo 2024 Team Status: Active Member Role/Relationship Status Dates OLEG PIÑA NP-C Primary Care Provider Active Start: September 13, 2024 Dr. Tobi Zapata MD Attending Provider Active S tart: September 13, 2024 Dr. Tobi Zapata MD Referring Provider Active S tart: September 13, 2024 Team Status: Inactive Member Role/Relationship Status Dates Dr. Donna Will MD Primary Care Provider Active Start: September 13, 2024 End: September 13, 2024 Dr. Donna Will MD Referring Provider Active Start: September 13, 2024 End: September 13, 2024 Dr. Tobi Zapata MD Attending Provider Active S tart: September 13, 2024 End: September 13, 2024 Team Status: Inactive Member Role/Relationship Status Dates Dr. Donna Will MD Primary Care Provider Active Start: September 16, 2024 End: September 16, 2024 Dr. Donna Will MD Attending Provider Active Start: September 16, 2024 End: September 16, 2024 Team Status: Inactive Member Role/Relationship Status Dates Dr. Donna Will MD Primary Care Provider Active Start: September 24, 2024 End: September 24, 2024 Dr. Donna Will MD Attending Provider Active Start: September 24, 2024 End: September 24, 2024 Dr. Donna Will MD Referring Provider Active Start: September 24, 2024 End: September 24, 2024 Team Status: Inactive Member Role/Relationship Status Dates Dr. Donna Will MD Primary Care Provider Active Start: September 24, 2024 End: September 24, 2024 Dr. Donna Will MD Referring Provider Active Start: September 24, 2024 End: September 24, 2024 ROSANGELA GoreC Attending Provider Active Start: September 24, 2024 End: September 24, 2024 Team Status: Inactive Member Role/Relationship Status Dates Dr. Donna Will MD Primary Care Provider Active Start: October 08, 2024 End: October 08, 2024 Dr. Donna iWll MD Referring Provider Active Start: October 08, 2024 End: October 08, 2024 Elizabeth Velazquez PA, PA Attending Provider Active Start: October 08, 2024 End: October 08, 2024 Team Status: Inactive Member Role/Relationship Status Dates Dr. Donna Will MD Primary Care Provider Active Start: October 14, 2024 End: October 14, 2024 SORIN Gore Attending Provider Active Start: October 14, 2024 End: October 14, 2024 SORIN Gore Referring Provider Active Start: October 14, 2024 End: October 14, 2024 Team Status: Active Member Role/Relationship Status Dates Dr. Donna Will MD Primary care physician Active Team Status: Inactive Member Role/Relationship Status Dates Dr. Donna Will MD Primary care physician Active Start: August 21, 2024 End: August 25, 2024 Dr. Terry Singh DO Emergency Departme nt Physician Active Start: August 21, 2024 End: August 25, 2024 Dr. Clive Sharp MD Admitting physician Active Start: August 21, 2024 End: August 25, 2024 Dr. Cliev Sharp MD Attending physician Active Start: August 21, 2024 End: August 25, 2024 Dr. Isaias Granados MD Nurse Practitioner Active Start: August 21, 2024 End: August 25, 2024 Dr. Cisco Cortés MD Nurse Practitioner Active Sta rt: August 21, 2024 End: August 25, 2024 Dr. Alexi Roblero MD Nurse Practitioner Active Start: August 21, 2024 End: August 25, 2024 Dr. Anthony Singleton DO Nurse Practitioner Active S tart: August 21, 2024 End: August 25, 2024 Dr. Jordan Alonzo MD Nurse Practitioner Active Start: August 21, 2024 End: August 25, 2024 Dr. Meet Mckeon MD Nurse Practitioner Active Start: August 21, 2024 End: August 25, 2024 Dr. Carlito Cárdenas MD Nurse Practitioner Active Start: August 21, 2024 End: August 25, 2024 Dr. Claudine Andrade MD Nurse Practitioner Active Start: August 21, 2024 End: August 25, 2024 Dr. Marvin Coats MD Nurse Practitioner Active S tart: August 21, 2024 End: August 25, 2024 Dr. Dimas Alvarenga MD Nurse Practitioner Active St art: August 21, 2024 End: August 25, 2024 Dr. Kashif Berg MD Nurse Practitioner Active S tart: August 21, 2024 End: August 25, 2024 Dr. Elizabeth Wilson MD Nurse Practitioner Active Start: August 21, 2024 End: August 25, 2024 Dr. Aric Leon MD Nurse Practitioner Active Start: August 21, 2024 End: August 25, 2024 Dr. Ashanti Dugan MD Nurse Practitioner Active Start: August 21, 2024 End: August 25, 2024 Dr. Mitch Pinzon MD Nurse Practitioner Active Start: August 21, 2024 End: August 25, 2024 Dr. Rajeev Dalton MD Nurse Practitioner Active Start: August 21, 2024 End: August 25, 2024 Dr. Roberto Escalante MD Nurse Practitioner Active Start: August 21, 2024 End: August 25, 2024 Dr. Nikolai Keller , Nurse Practitioner Active Start: August 21, 2024 End: August 25, 2024 Dr. Leyda Fischer MD Nurse Practitioner Active St art: August 21, 2024 End: August 25, 2024 Dr. Yolie Zapata MD Nurse Practitioner Active Start: August 21, 2024 End: August 25, 2024 Dr. Dao Avila , Nurse Practitioner Active Start: August 21, 2024 End: August 25, 2024 Dr. Madi Tavarez MD Nurse Practitioner Active Start: August 21, 2024 End: August 25, 2024 Dr. Zhang Concepcion MD Nurse Practitioner Active Start: August 21, 2024 End: August 25, 2024 Dr. Kee York MD Nurse Practitioner Active Start: August 21, 2024 End: August 25, 2024 Dr. Jordan Davis , Nurse Practitioner Active Start: August 21, 2024 End: August 25, 2024 Dr. Adriana Goel MD Nurse Practitioner Active S tart: August 21, 2024 End: August 25, 2024 Dr. Farida Todd MD Nurse Practitioner Active Start: August 21, 2024 End: August 25, 2024 Linda Huizar NP-C Nurse Practitioner Active Start: August 21, 2024 End: August 25, 2024 Katelynn Greenberg NP, [employer] Nurse Practitioner Active Start: August 21, 2024 End: August 25, 2024 YANELIS Ley Nurse Practitioner Active Star t: August 21, 2024 End: August 25, 2024 Team Status: Active Member Role/Relationship Status Dates Dr. Donna Will MD Primary care physician Active Start: August 23, 2024 Dr. Terry Singh DO Emergency Departme nt Physician Active Start: August 23, 2024 Dr. Clive Sharp MD Admitting physician Active Start: August 23, 2024 Dr. Clive Sharp MD Attending physician Active Start: August 23, 2024 Dr. Clive Sharp MD Nurse Practitioner Active Start: August 23, 2024 Dr. Isaias Granados MD Nurse Practitioner Active Start: August 23, 2024 Dr. Cisco Cortés MD Nurse Practitioner Active Sta rt: August 23, 2024 Dr. Alexi Roblero MD Nurse Practitioner Active Start: August 23, 2024 Dr. Anthony Singleton DO Nurse Practitioner Active S tart: August 23, 2024 Dr. Jordan Alonzo MD Nurse Practitioner Active Start: August 23, 2024 Dr. Meet Mckeon MD Nurse Practitioner Active Start: August 23, 2024 Dr. Carlito Cárdenas MD Nurse Practitioner Active Start: August 23, 2024 Dr. Claudine Andrade MD Nurse Practitioner Active Start: August 23, 2024 Dr. Marvin Coats MD Nurse Practitioner Active S tart: August 23, 2024 Dr. Dimas Alvarenga MD Nurse Practitioner Active St art: August 23, 2024 Dr. Kashif Berg MD Nurse Practitioner Active S tart: August 23, 2024 Dr. Elizabeth Wilson MD Nurse Practitioner Active Start: August 23, 2024 Dr. Aric Leon MD Nurse Practitioner Active Start: August 23, 2024 Dr. Ashanti Dugan MD Nurse Practitioner Active Start: August 23, 2024 Dr. Mitch Pinzon MD Nurse Practitioner Active Start: August 23, 2024 Dr. Rajeev Dalton MD Nurse Practitioner Active Start: August 23, 2024 Dr. Roberto Escalante MD Nurse Practitioner Active Start: August 23, 2024 Dr. Nikolai Keller , Nurse Practitioner Active Start: August 23, 2024 Dr. Leyda Fischer MD Nurse Practitioner Active St art: August 23, 2024 Dr. Yolie Zapata MD Nurse Practitioner Active Start: August 23, 2024 Dr. Dao Avila , Nurse Practitioner Active Start: August 23, 2024 Dr. Madi Tavarez MD Nurse Practitioner Active Start: August 23, 2024 Dr. Zhang Concepcion MD Nurse Practitioner Active Start: August 23, 2024 Dr. Kee York MD Nurse Practitioner Active Start: August 23, 2024 Team Status: Active Member Role/Relationship Status Dates Dr. Donna Will MD Primary care physician Active Start: August 23, 2024 Dr. Warren Murray MD Attending physician Active Start: August 23, 2024 Team Status: Active Member Role/Relationship Status Dates Dr. Donna Will MD Primary care physician Active Start: August 24, 2024 Dr. Terry Singh DO Emergency Departme nt Physician Active Start: August 24, 2024 Dr. Clive Sharp MD Admitting physician Active Start: August 24, 2024 Dr. Clive Sharp MD Attending physician Active Start: August 24, 2024 Dr. Clive Sharp MD Nurse Practitioner Active Start: August 24, 2024 Dr. Isaias Granados MD Nurse Practitioner Active Start: August 24, 2024 Dr. Cisco Cortés MD Nurse Practitioner Active Sta rt: August 24, 2024 Dr. Alexi Roblero MD Nurse Practitioner Active Start: August 24, 2024 Dr. Anthony Singleton DO Nurse Practitioner Active S tart: August 24, 2024 Dr. Jordan Alonzo MD Nurse Practitioner Active Start: August 24, 2024 Dr. Meet Mckeon MD Nurse Practitioner Active Start: August 24, 2024 Dr. Carlito Cárdenas MD Nurse Practitioner Active Start: August 24, 2024 Dr. Claudine Andrade MD Nurse Practitioner Active Start: August 24 Dr. Marvin Coats MD Nurse Practitioner Active S tart: August 24, 2024 Dr. Dimas Alvarenga MD Nurse Practitioner Active St art: August 24, 2024 Dr. Kashif Berg MD Nurse Practitioner Active S tart: August 24, 2024 Dr. Elizabeth Wilson MD Nurse Practitioner Active Start: August 24, 2024 Dr. Aric Leon MD Nurse Practitioner Active Start: August 24, 2024 Dr. Ashanti Dugan MD Nurse Practitioner Active Start: August 24, 2024 Dr. Mitch Pinzon MD Nurse Practitioner Active Start: August 24, 2024 Dr. Rajeev Dalton MD Nurse Practitioner Active Start: August 24, 2024 Dr. Roberto Escalante MD Nurse Practitioner Active Start: August 24, 2024 Dr. Nikolai Keller , Nurse Practitioner Active Start: August 24, 2024 Dr. Leyda Fischer MD Nurse Practitioner Active St art: August 24, 2024 Dr. Yolie Zapata MD Nurse Practitioner Active Start: August 24, 2024 Dr. Dao Avila , Nurse Practitioner Active Start: August 24, 2024 Dr. Madi Tavarez MD Nurse Practitioner Active Start: August 24, 2024 Dr. Zhang Concepcion MD Nurse Practitioner Active Start: August 24, 2024 Dr. Kee York MD Nurse Practitioner Active Start: August 24, 2024 Dr. Jordan Davis DO Nurse Practitioner Active Start: August 24, 2024 Dr. Adriana Goel MD Nurse Practitioner Active S tart: August 24, 2024 Dr. Farida Todd MD Nurse Practitioner Active Start: August 24, 2024 Linda Huizar [employer] Nurse Practitioner Active Start: August 24, 2024 Katelynn Greenberg NP, [employer] Nurse Practitioner Active Start: August 24, 2024 YANELIS Ley Nurse Practitioner Active Star t: August 24, 2024 Team Status: Active Member Role/Relationship Status Dates Dr. Donna Will MD Primary care physician Active Start: August 25, 2024 Dr. Terry Singh DO Emergency Departme nt Physician Active Start: August 25, 2024 Dr. Clive Sharp MD Admitting physician Active Start: August 25, 2024 Dr. Clive Sharp MD Attending physician Active Start: August 25, 2024 Dr. Clive Sharp MD Nurse Practitioner Active Start: August 25, 2024 Dr. Isaias Granados MD Nurse Practitioner Active Start: August 25, 2024 Dr. Cisco Cortés MD Nurse Practitioner Active Sta rt: August 25, 2024 Dr. Alexi Roblero MD Nurse Practitioner Active Start: August 25, 2024 Dr. Anthony Singleton DO Nurse Practitioner Active S tart: August 25, 2024 Dr. Jordan Alonzo MD Nurse Practitioner Active Start: August 25, 2024 Dr. Meet Mckeon MD Nurse Practitioner Active Start: August 25, 2024 Dr. Carlito Cárdenas MD Nurse Practitioner Active Start: August 25, 2024 Dr. Claudine Andrade MD Nurse Practitioner Active Start: August 25 Dr. Marvin Coats MD Nurse Practitioner Active S tart: August 25, 2024 Dr. Dimas Alvarenga MD Nurse Practitioner Active St art: August 25, 2024 Dr. Kashif Berg MD Nurse Practitioner Active S tart: August 25, 2024 Dr. Elizabeth Wilson MD Nurse Practitioner Active Start: August 25, 2024 Dr. Aric Leon MD Nurse Practitioner Active Start: August 25, 2024 Dr. Ashanti Dugan MD Nurse Practitioner Active Start: August 25, 2024 Dr. Mitch Pinzon MD Nurse Practitioner Active Start: August 25, 2024 Dr. Rajeev Dalton MD Nurse Practitioner Active Start: August 25, 2024 Dr. Roberto Escalante MD Nurse Practitioner Active Start: August 25, 2024 Dr. Nikolai Keller DO Nurse Practitioner Active Start: August 25, 2024 Dr. Leyda Fischer MD Nurse Practitioner Active St art: August 25, 2024 Dr. Yolie Zapata MD Nurse Practitioner Active Start: August 25, 2024 Dr. Dao Avila DO Nurse Practitioner Active Start: August 25, 2024 Dr. Madi Tavarez MD Nurse Practitioner Active Start: August 25, 2024 Dr. Zhang Concepcion MD Nurse Practitioner Active Start: August 25, 2024 Dr. Kee York MD Nurse Practitioner Active Start: August 25, 2024 Dr. Jordan Davis DO Nurse Practitioner Active Start: August 25, 2024 Dr. Adriana Goel MD Nurse Practitioner Active S tart: August 25, 2024 Dr. Farida Todd MD Nurse Practitioner Active Start: August 25, 2024 Linda Huizar [employer] Nurse Practitioner Active Start: August 25, 2024 Katelynn Greenberg NP, [employer] Nurse Practitioner Active Start: August 25, 2024 YANELIS Ley Nurse Practitioner Active Star t: August 25, 2024 Team Status: Inactive Member Role/Relationship Status Dates Dr. Donna Will MD Primary care physician Active Start: September 13, 2024 End: September 13, 2024 Dr. Donna Will MD Referring Provider Active Start: September 13, 2024 End: September 13, 2024 Dr. Tobi Zapata MD Attending physician Active Start: September 13, 2024 End: September 13, 2024 Team Status: Inactive Member Role/Relationship Status Dates Dr. Donna Will MD Primary care physician Active Start: September 16, 2024 End: September 16, 2024 Dr. Donna Will MD Attending physician Active Start: September 16, 2024 End: September 16, 2024 Team Status: Inactive Member Role/Relationship Status Dates Dr. Donna Will MD Primary care physician Active Start: September 24, 2024 End: September 24, 2024 Dr. Donna Will MD Attending physician Active Start: September 24, 2024 End: September 24, 2024 Dr. Donna Will MD Referring Provider Active Start: September 24, 2024 End: September 24, 2024 Team Status: Inactive Member Role/Relationship Status Dates Dr. Donna Will MD Primary care physician Active Start: September 24, 2024 End: September 24, 2024 Dr. Donna Will MD Referring Provider Active Start: September 24, 2024 End: September 24, 2024 Gris Naik NP-C Attending physician Active Start: September 24, 2024 End: September 24, 2024 Team Status: Inactive Member Role/Relationship Status Dates Dr. Donna Will MD Primary care physician Active Start: October 08, 2024 End: October 08, 2024 Dr. Donna Will MD Referring Provider Active Start: October 08, 2024 End: October 08, 2024 Elizabeth Velazquez PA, PA Attending physician Active Start: October 08, 2024 End: October 08, 2024 Team Status: Inactive Member Role/Relationship Status Dates Dr. Donna Will MD Primary care physician Active Start: October 14, 2024 End: October 14, 2024 SORIN Gore Attending physician Active Start: October 14, 2024 End: October 14, 2024 SORIN Gore Referring Provider Active Start: October 14, 2024 End: October 14, 2024 Team Status: Inactive Member Role/Relationship Status Dates Dr. Donna Will MD Primary care physician Active Start: November 25, 2024 End: November 25, 2024 Dr. Tobi Zapata MD Attending physician Active Start: November 25, 2024 End: November 25, 2024 Dr. Tobi Zapata MD Referring Provider Active S tart: November 25, 2024 End: November 25, 2024 Team Status: Inactive Member Role/Relationship Status Dates Dr. Donna Will MD Primary care physician Active Start: December 06, 2024 End: December 06, 2024 Dr. Donna Will MD Attending physician Active Start: December 06, 2024 End: December 06, 2024 Team Status: Inactive Member Role/Relationship Status Dates Dr. Donna Will MD Primary care physician Active Start: December 06, 2024 End: December 06, 2024 Dr. Donna Will MD Referring Provider Active Start: December 06, 2024 End: December 06, 2024 Dr. Tobi Zapata MD Attending physician Active Start: December 06, 2024 End: December 06, 2024 Team Status: Active Member Role/Relationship Status Dates SORIN MCKENZIE Primary care physician Active Start: December 06, 2024 Dr. Tobi Zapata MD Attending physician Active Start: December 06, 2024 Dr. Tobi Zapata MD Referring Provider Active S tart: December 06, 2024 Reason for Visit (unrecogniz ed section [...] BE BASED ON THE PRIMARY CLINICAL RECORDS. [facility] [employer] [facility]. provides no warranty or guarantee of the accuracy or completeness of information in this document.
[2024-12-25 00:07] LABS: Anion Gap 13 (5-15); BUN 50 mg/dL (4-19); BUN/Creat Ratio 24.6 RATIO (10-20); Calcium,Total 9.3 mg/dL (7.6-11.0); Carbon Dioxide 26.8 mmol/L (21.0-32.0); Chloride 98 mmol/L (98-108); Estimated Creatinine Clearance 38.01 ml/min (50-250); Glucose 266 mg/dL (70-99); Potassium 4.9 mmol/L (3.3-5.1)
[2024-12-25 00:25] LABS: Differential Comment SCANNED
[2024-12-25] MEDS: 0.9% Normal Saline (1000mL) 1,000 ML 150 ML IV (00:50)
[2024-12-25] MEDS: Piperacil/Tazobactam 4.5 GM in 0.9% Normal Saline (100mL MB+) 100 ML IV (00:51)
[2024-12-25] MEDS: Vancomycin HCl 2,000 MG in 0.9% Normal Saline (500mL Bag) 500 ML 250 MG IV (00:52)
[2024-12-25 01:29] LABS: Color, Urine Yellow (Yellow); Glucose, Dipstick 1000 mg/dl (Normal); Ketone-Dipstick Negative (Negative); Leukocyte Esterase-Dipstick 500 /ul (Negative); Mucous, Urine 0 SEEN /hpf (<or=2+); Nitrite-Dipstick Negative (Negative); Occult Blood-Urine 50 /ul (Negative); Protein-Dipstick 100 mg/dl (Negative); Red Blood Cells-Urine 0 SEEN /hpf (0-5); Specific Gravity, Urine 1.020 (1.002-1.030); Urine Bilirubin Dipstick Negative (Negative)
[2024-12-25 01:43] LABS: Squamous Epithelial Cells - UA 0-5 SEEN /hpf (0-5); Yeast-Urine 1+ /hpf (None Seen)
--- NOTE | 2024-12-25 02:09 | PCM.HP.STD ---
HPI - General General Date of Admission: 12/25/24 Date of Service: 12/25/24 Chief Complaint: Dyspnea, increased hypoxia/oxygen needs, URI sxs, subjective F/C. 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 ED on 12/25/2024 with history of onset of subjective fever, chills, cough and dyspnea with onset over the last 48 to 72 hours with no recent specific ill contacts with need to increase his oxygen to 4 to 5 L because of his symptoms with no marked improvement prompt eventual ED evaluation to be cautious. Workup in the ED included T100.4, heart 93, BP 147/51, respiratory rate 25, 96% on 6 L nasal cannula with most recent repeat vitals T101.1, heart rate 84, BP 130/70, respiratory rate 23, 94% on 6 L nasal cannula, CBC with WC 14.3, hemoglobin 9.2, MCV 97.6, platelet 301 with increased immature granulocytes, NT-proBNPII 2413, magnesium 2.1, lactic acid 1.7, procalcitonin 0.14, BMP with BUN/Cr 50/2.04, GFR 33, glucose 266, chest x-ray with minimal bilateral basilar atelectatic pulmonary changes, CTPA with no evidence of pulmonary arterial thromboembolism, evidence cardiomegaly, bilateral pulmonary patchy ground glass opacities and acinar densities involving especially the upper lobe possibly infectious, bilateral pulmonary atelectatic changes with predominantly lower lobe bronchial wall thickening with no obvious pulmonary mass or consolidations,, urinalysis with turbid appearing urine, specific gravity 1.020, protein 100, glucose thousand, occult blood 50, leukocyte esterase 500, urine WBCs 50-100 with 2+ urine bacteria, blood culture pending x 2, urine culture pending per ED, rapid SARS COVID/influenza/RSV PCR negative. In the ED patient ministered maintenance IV fluids, Tylenol 1000 g p.o. x 1, IV vancomycin and IV Zosyn. [facility] Medical History Acute and chronic respiratory failure with hypercapnia Type 2 LA (myocardial infarction) MRSA (methicillin resistant staph aureus) culture positive Ischemic cardiomyopathy COVID-19 Lethargic COPD with acute exacerbation Elevated troponin I level LUIS (acute kidney injury) Hypoxemia Chronic kidney disease (CKD), stage III (moderate) Acute hypoxic on chronic hypercapnic respiratory failure FTT (failure to thrive) in adult Former smoker On home oxygen therapy Bleeding tendency Ulcer High cholesterol History of stress test HTN (hypertension) Tobacco abuse History of pulmonary embolus (PE) (04/30/21) Essential hypertension Type 2 diabetes mellitus DVT (deep venous thrombosis) (05/01/21) Rhinovirus Acute respiratory failure with hypoxia Physical debility COVID-19 in immunocompromised patient Nicotine dependence, cigarettes, uncomplicated Diabetes Arthritis Cancer COPD (chronic obstructive pulmonary disease) History of basal cell carcinoma Atherosclerosis of coronary artery of crow heart without angina pectoris Pneumonia Non-Hodgkin lymphoma History of pilonidal cyst Allergic rhinitis 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 complications Gastritis Colon polyp Obesity Asthma Chronic bronchitis Positive colorectal cancer screening using Cologuard test RA (rheumatoid arthritis) Home Medications ?Medication ?Instructions ?Recorded ?Last Taken ?Type finasteride 5 mg tablet 5 mg PO DAILY prostate 08/14/22 07/07/24 History tamsulosin 0.4 mg capsule 0.4 mg PO QHS prostate 08/14/22 07/07/24 History multivitamin 1 tab PO DAILY vitamin 09/13/22 07/07/24 History mirtazapine 15 mg tablet (Remeron) 7.5 mg (1/2 x 15 mg) PO QHS sleep 10/29/23 07/07/24 Rx #90 tabs needle (disp) 32 gauge 32 gauge x #100 ea 11/12/23 Unknown Rx 5/16 (Easy Touch Hypodermic Needle) pen needle, diabetic 32 gauge x #100 ea 12/03/23 Unknown Rx 5/32 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 sensor (FreeStyle #1 ea 12/24/23 Unknown Rx Basilio 3 Sensor device) 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,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,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 #1 ea 12/24/23 Unknown Rx (FreeStyle Basilio 3 Fedscreek) ferrous sulfate 325 mg (65 mg 325 mg PO QODAY Supplement 04/05/24 07/07/24 History iron) tablet (FeroSul) cholecalciferol (vitamin D3) 50 50 mcg PO QDAY 06/28/24 07/07/24 History mcg (2,000 unit) capsule pantoprazole 40 mg tablet,delayed 40 mg PO DAILY 30 days #0 tabs 08/25/24 07/07/24 Rx release (Protonix) sennosides 8.6 mg-docusate sodium 2 tab PO BID PRN Constipation #0 08/25/24 Unknown Rx 50 mg tablet (Stimulant Laxative tabs Plus) albuterol sulfate 90 mcg/actuation 2 puff inhalation Q6 PRN shortness 09/24/24 Unknown History aerosol inhaler of breath or wheezing budesonide 1 mg/2 mL suspension 1 mg (2 mL) inhalation Q12H 09/24/24 Unknown Rx for nebulization wheezing/SOB #120 mL atorvastatin 40 mg tablet 40 mg PO QHS #90 tabs 10/08/24 Unknown Rx carvedilol 6.25 mg tablet 6.25 mg PO BID BP #180 tabs 10/08/24 Unknown Rx spironolactone 25 mg tablet 25 mg PO DAILY #90 tabs 10/08/24 Unknown Rx empagliflozin 10 mg tablet 10 mg PO DAILY #90 TABLETS 11/10/24 Unknown Rx (Jardiance) ipratropium 0.5 mg-albuterol 3 mg 3 ml inhalation Q4H PRN PRN SOB 11/26/24 Unknown Rx (2.5 mg base)/3 mL nebulization &/OR WHEEZING #270 mL soln escitalopram oxalate 10 mg tablet 10 mg PO DAILY mood 90 days #90 11/29/24 Unknown Rx tabs bumetanide 0.5 mg tablet 0.5 mg PO QDAY #180 tabs 12/17/24 Unknown Rx insulin aspart U-100 100 unit/mL See Rx Instructions subcut 12/23/24 Unknown Rx (3 mL) subcutaneous pen .COMPLEX High Blood Glucose #15 mL insulin glargine-yfgn 100 unit/mL See Rx Instructions subcut BIDCM 12/23/24 Unknown Rx (3 mL) subcutaneous pen high blood glucose #15 mL Allergy/AdvReac Type Severity Reaction Status Date / Time No Known Allergies Allergy Verified 12/06/24 10:24 Family History Father Arthritis Bleeding disorder Hypertension Kidney disease Cancer Skin Anemia blood clots Emphysema lung Mother Colon cancer Cancer Lung Cancer Diabetes Brother Thyroid disorder Surgical History History of embolic filter insertion History of heart artery stent Status post cardiac surgery H/O cardiac catheterization Presence of IVC filter (04/2021) History of coronary artery stent placement (10/22/13) History of thymectomy Hx of lymph node excision History of excision of pilonidal cyst Social History household members: spouse Smoking Status: Former smoker Tobacco: How many years used: 55 second hand exposure: Yes alcohol intake: current alcohol intake frequency: holidays/special occasions only substance use type: does not use caffeine: Yes Type: coffee Number of servings: 3 what type of physical activity do you participate in: none frequency: does not exercise seatbelt use: always ROS ROS Narrative Admission Review of Systems: CONSTITUTIONAL: No weight loss, + subjective fever, chills, weakness or fatigue. HEENT: + Rhinorrhea, congestion, sore throat. Eyes: No visual loss, blurred vision, double vision or yellow sclerae. Ears, Nose, Throat: No hearing loss, sneezing. SKIN: No rash or itching, lesions, wounds except + occasional stage ecchymoses, abrasions. CARDIOVASCULAR: No chest pain, chest pressure or chest discomfort, palpitations, orthopnea, syncopal events. RESPIRATORY: + Shortness of breath, cough with occasional sputum, occasional wheezing, No hemoptysis. GASTROINTESTINAL: + Anorexia/decreased appetite. No nausea, vomiting, diarrhea, abdominal pain, melena, BRBPR. GENITOURINARY: No dysuria, frequency, urgency or retention. NEUROLOGICAL: No headache, dizziness, syncope, paralysis, ataxia, numbness or tingling in the extremities, focal weakness, change in bowel or bladder control, seizure. MUSCULOSKELETAL: + muscle, back pain, joint pain or stiffness. HEMATOLOGIC: + anemia, easy bleeding/bruising. LYMPHATICS: No enlarged nodes. No history of splenectomy. PSYCHIATRIC: + history of depression and anxiety. ENDOCRINOLOGIC: No reports of sweating, cold or heat intolerance. No polyuria or polydipsia. ALLERGIES: No history of asthma, hives, eczema or rhinitis. Vital Signs Vital Signs Vital Signs: 12/24/24 23:14 12/24/24 23:26 12/25/24 00:06 Temperature 100.4 F H 100.4 F H 101.1 F H Temperature Source Oral Oral Oral Pulse Rate 93 104 H 84 Respiratory Rate 25 H 20 H 23 H Respiratory Effort Respiratory Depth Respiratory Pattern Blood Pressure 147/51 H 107/80 138/70 H Blood Pressure Mean 83 89 92 Pulse Ox 99 100 94 Oxygen Delivery Method Nasal Cannula Room Air Nasal Cannula Oxygen Flow Rate (L/min) 6 6 12/25/24 00:11 12/25/24 00:36 12/25/24 01:00 Temperature 101 F H Temperature Source Oral Pulse Rate 83 80 Respiratory Rate 21 H 20 H Respiratory Effort Normal Respiratory Depth Shallow Respiratory Pattern Tachypnea Blood Pressure 138/70 H 105/54 L Blood Pressure Mean 92 71 Pulse Ox 94 96 Oxygen Delivery Method Nasal Cannula Nasal Cannula Nasal Cannula Oxygen Flow Rate (L/min) 6 6 6 12/25/24 01:03 12/25/24 01:05 12/25/24 01:15 Temperature Temperature Source Pulse Rate 81 Respiratory Rate 20 H Respiratory Effort Respiratory Depth Respiratory Pattern Blood Pressure 99/43 L 105/54 L 112/51 L Blood Pressure Mean 61 67 69 Pulse Ox 98 Oxygen Delivery Method Oxygen Flow Rate (L/min) 12/25/24 01:30 12/25/24 01:45 12/25/24 02:00 Temperature Temperature Source Pulse Rate 81 80 Respiratory Rate 21 H 22 H Respiratory Effort Respiratory Depth Respiratory Pattern Blood Pressure 112/56 L 107/53 L 110/55 L Blood Pressure Mean 73 70 71 Pulse Ox 96 Oxygen Delivery Method Oxygen Flow Rate (L/min) Weight Weight: 224 lb 6.889 oz Body Mass Index (BMI) 31.3 Physical Exam Narrative Physical Examination: General: Awake, alert, oriented x 3, fatigued and ill appearing, no evidence of any respiratory distress. Skin: Normal color, normal turgor, no icterus, no cyanosis except occasional staged ecchymoses, BL LE venous stasis changes. HEENT: AT/NC, EOMI, PERRLA, mildly dry MM, no carotid bruits or JVD noted. Lungs: Diminished diffusely greater bases, mildly increased respiratory rate but no evidence of any distress, occasional scant end expiratory wheeze, bilaterally rhonchorous. Heart: Irregular; no gallop, rub audible. Abdomen: Soft, overweight, NTTP, ND, distant BS, no appreciated HSM. Extremities: No cyanosis, no clubbing, bilateral pedal trace nonpitting edema. Neurological: Awakens to stimuli and will answer some questions but falling back asleep only transient alert, oriented as noted, cognitive function not baseline intact; pupils equally reactive to light and accommodation, cranial nerves grossly normal, moving all 4 extremities, no focal deficits, strength severely globally decreased secondary to acute presentation and underlying comorbidities. Psychiatric: Affect appears fatigued, ill-appearing, no evidence of any respiratory distress, no acute evidence of depressive or anxiety feelings but does have underlying history. Results Lab / Micro Data 12/24/24 23:21 12/24/24 23:21 Labs: Laboratory Results - last 24 hr 12/24/24 23:21: WBC 14.3 H, RBC 2.90 L, Hgb 9.2 L, Hct 28.3 L, MCV 97.6 H, MCH 31.7, MCHC 32.5, RDW Std Deviation 60.4 H, RDW Coeff of Rafael 17.1 H, Plt Count 301, MPV 11.3, Immature Gran % (Auto) 2.100 H, Neut % (Auto) 47.9, Lymph % (Auto) 30.5, Scott % (Auto) 15.2 H, Eos % (Auto) 3.7, Baso % (Auto) 0.6, Absolute Neuts (auto) 6.8, Absolute Lymphs (auto) 4.34, Nucleated RBC % 0.5, Differential Comment SCANNED, Sodium 138, Potassium 4.9, Chloride 98, Carbon Dioxide 26.8, Anion Gap 13, BUN 50 H, Creatinine 2.04 H, Estim Creat Clear Calc 38.01 L, Est GFR (MDRD) Non-Af 33 L, BUN/Creatinine Ratio 24.6 H, Glucose 266 H, Lactic Acid 1.7, Calcium 9.3, Magnesium 2.1, NT pro BNP II 2413 H, Procalcitonin 0.14 H 12/25/24 01:25: Urine Color Yellow, Urine Clarity Turbid, Urine pH 6.0, Ur Specific Bradley 1.020, Urine Protein 100 H, Urine Glucose (UA) 1000 H, Urine Ketones Negative, Urine Occult Blood 50 H, Urine Nitrite Negative, Urine Bilirubin Negative, Urine Urobilinogen 1 H, Ur Leukocyte Esterase 500 H, Urine RBC 0 SEEN, Urine WBC 50-100 SEEN, Ur Squamous Epith Cells 0-5 SEEN, Ur Renal Epithelial Cell 0-5 SEEN, Urine Bacteria 2+, Urine Mucus 0 SEEN, Urine Yeast 1+ Micro: Microbiology 12/24/24 23:30 Mucosa - Nose SARS-CoV-2, Influenza & RSV (PCR) - Final Imaging Radiology Impression Chest X-Ray 12/24/24 23:36 IMPRESSION: Minimal bilateral basilar atelectatic pulmonary changes. Reading Location: [place] [id number] Chest CTA 12/25/24 00:05 IMPRESSION: No evidence of pulmonary arterial thromboembolism. Cardiomegaly. Bilateral pulmonary patchy ground glass opacities and acinar densities, most evidently involving the right upper lung lobe, possibly infectious. Bilateral pulmonary atelectatic changes with predominantly lower lobar bronchial wall thickening No obvious pulmonary masses or consolidations. Reading Location: [place] [address] Assessment & Plan Assessment/Plan (1) Pneumonia: (2) UTI (urinary tract infection): PLAN: Plan The patient is a 74 y/o M w/ PMHx: Chronic AF, Rheumatoid arthritits previously on rituximab, Non-Hodgkin's lymphoma in remission, CKD stage III unclear subtype or GFR trending, Diabetes mellitus type II, HTN, HLD, CAD s/p LAD, RCA (2001) and L circumflex (2013), Hx VTE (multiple BL PE, L common femoral and posterior tibial veins) s/p IVC Filter placement, Former tobacco use, Hx COVID-19 PNA , Pulmonary Fibrosis, COPD/asthma w/ Chronic Hypoxic Respiratory Failure (3-4L NC), Anxiety and Depression, Chronic anemia/Fe deficiency anemia w/ Hx GI bleed w/ AVMs, Hx Hodgkins lymphoma S/P ABVD and Radiation [address] [facility] ED on 12/25/2024 with history of onset of subjective fever, chills, cough and dyspnea with onset over the last 48 to 72 hours with no recent specific ill contacts with need to increase his oxygen to 4 to 5 L because of his symptoms with no marked improvement prompt eventual ED evaluation to be cautious. #1. Acute on Chronic Hypoxic and Hypercarbic Respiratory Failure secondary to Possible PNA, notably RUL with concern for GN/GP organism, complicated by acute complicated urinary tract infection, complicated by underlying Chronic COPD and Pulmonary fibrosis: Will admit to PCU, maintain on oxygen with wean as tolerated to his home oxygen supplementation, continue ATC budeosonide therapy, PRN albuterol, pending UCx and Bld Cx x 2 per ED, will in the interim maintain on IV zosyn and vancomycin with pending MRSA screen and certainly may de-escalate if it becomes more obvious this is primarily viral, will obtain full respiratory viral panel, urine antigens, sputum culture in addition, will maintain on fall and aspiration precautions, PT/OT/casement consulted for discharge planning. #2. CAD: s/p LAD, RCA (2001) and L circumflex (2013), continue Coreg, statin therapy. Continued evaluation and treatment as noted above #2 although again suspect demand secondary to #1. Given GI bleed difficulties clarifying if baby ASA is continued. #3. HFrEF: Most recent echocardiogram 08/23/2024 with EF 25 to 30%, severe LV systolic dysfunction, no significant change from previous echocardiogram 05/2024 with EF at that time 25%, will continue statin, Coreg home regimen, not on MEDHAT number/ARB, continue Lasix therapy. Given GI bleed history clarifying if patient is still on baby aspirin. #4. Chronic macrocytic anemia/Fe deficiency anemia complicated by history of significant recurrent GI bleeds w/ AVMs: Admission hemoglobin 9.2, MCV 97.6, baseline hemoglobin 8-10, stable, continue to trend. Will maintain on PPI, continue iron supplementation. Following Hematology, most recent visit noted 12/06/24. #5. Hx VTE, DVT and BL PE: Most recent event 07/2021 BL PE, prior DVT, history of significant GI bleeds status post IVC filter placement. #6. Diabetes mellitus type II: Will hold oral regimen, continue long-acting insulin regimen, will maintain on ADA diet, accu checks with ISS. #7. Rheumatoid arthritits: Previously on rituximab and prior also noted to have been on low dose prednisone, will clarify if currently ongoing but may have been discontinued given GI bleed issues. #8. Hypertension: Continue home Coreg, Spironolactone, Lasix with hold parameters as needed given low-normal BP in the ED, PRN hydralazine. #9. Hyperlipidemia: Continue home statin therapy. #10. History Tobacco Abuse: Encouraged continued tobacco cessation. #11. History of non-Hodgkin's lymphoma: Considered in remission, s/p ABVD and radiation 2010, encourage continued outpatient follow-up with oncology as previously arranged or needed. #12. Anxiety and depression: We will continue patient home escitalopram and mirtazapine regimen. #13. BPH with obstructive pathology: We will continue patient home finasteride and Flomax regimen. #14. Chronic Kidney Disease Stage III, unclear subtype or GFR trending: Admission BUN/Cr 50/2.04, GFR 33, baseline renal function more recently 1.7-2.7, seems to vacillate, most recently 12/06/2024 creatinine 2.70, repeat BMP in AM to elucidate current baseline. #15. GERD with history of significant recurrent GI bleeds with AVMs: Will continue patient on PPI, as noted above #4. #16. Chronic AF: Will continue patient on Coreg, not on any anticoagulant therapy secondary to significant GI bleed history as noted. #17. DVT prophylaxis: Heparin cautiously. #18. CODE status: Patient HARISH is his son and granddaughter are his decision makers and living will is currently in place. Discussed CODE status at length including difference between FULL code, DNR-CCA and DNR-CC status. Following discussions about the differences in these status, requested continutation DNR-CCA, no intubation. Advanced Care Planning Face to Face Time: 16 minutes. Charges/Coding Visit Charges Inpatient E&M: 63483 Init Hosp L3 Procedures Hospitalists Procedures: 26921 Advncd Care Plan 30 Min
--- OUTSIDE RECORDS SUMMARY | 2024-12-25 02:41 | XMS RPT_ITS | CCD ---
Author Organization [facility] CliniSyfl Care Team Providers Care Leather Flesher Name Role Phone Dr. Donna Will Primary [...] Provider Dr. Norm Mello Attending Provider Oliver LABORATORY INSPECTOR, SORIN Escobar Attending Provider Dr. Marco Hoffman [...] Provider Dr. Norm Mello Attending Provider Oliver LABORATORY INSPECTOR, LABORATORY INSPECTOR-C Luz Attending Provider Dr. Marco Hoffman Emergency [...] Provider Beatriz Osorio Attending Provider Unavailable Ashok LABORATORY INSPECTOR, LABORATORY INSPECTOR-C More Attending Provider Dr. Farida Todd Emergency Provider Dr. Jordan Ortiz Admit Provider Unavailable Dr. Donna Will Primary Care Provider Dr. Donna Will Attending Provider [phone] Donna Will Referring Provider [phone] Dr. Jordan Ortiz Attending Provider Unavailable Dr. [...] Donna Will Referring Provider [phone] Ashok LABORATORY INSPECTOR, LABORATORY INSPECTOR-C More Attending Provider Dr. Wilberto Huerta Referring Provider YANELIS Mayfield Attending Provider Piña O[facility] Bocanegra Attending Provider YANELIS Mayfield Referring Provider PIÑA, LABORATORY INSPECTOR-C OLEG Primary Care Provider PIÑA, LABORATORY INSPECTOR-C OLEG Referring Provider Dr. Marco Hoffman Emergency Provider Dr. Mario Dewitt Admit Provider Dr. Mario Dewitt Attending Provider Dr. Mario Dewitt Other Provider Dr. Khai Galeana Other Provider Dr. Tobi Shannon Attending Provider Dr. Khai Galeana Attending Provider Dr. Suze Rosas Other Provider Dr. Suze Rosas Attending Provider Dr. Donna Will Primary Care Provider Dr. Donna Will Referring Provider Ashok LABORATORY INSPECTOR, LABORATORY INSPECTOR-C More Attending Provider Dr. Suze Rosas Attending [...] Will Referring Provider YANELIS Mayfield Attending Provider Oleg Piña Primary Care Provider [facility] Dr. Tobi Bocanegra Attending Provider YANELIS Mayfield Referring Provider CARO LABORATORY INSPECTOR-C OLEG Primary Care Provider GERA PIÑA-Gurwinder DEJESUS Referring Provider Pulido LABORATORY INSPECTOR, LABORATORY INSPECTOR-C More Attending Provider [phone] Dr. Marco Hoffman Emergency Provider Dr. Mario [...] Angel, Dr. Ortega Attending Provider Unavailable CARO, LABORATORY INSPECTOR-C OLEG Primary Care Provider Dr. Janice Mackey Admit Provider Dr. Janice Mackey Other Provider Dr. Tobi aZpata Attending Provider Dr. Faisal Walker Emergency Provider Dr. Tobi Shannon Admit Provider Dr. Tobi Shannon Attending Provider Dr. Tobi Shannon Other Provider Dr. Alexi Roblero Attending Provider Dr. Alexi Roblero Other Provider Dr. Anthony Singleton Other Provider Dr. Rambo Bruner Other Provider Dr. Afshin Pablo Other Provider Unavailab Garg LABORATORY INSPECTOR, LABORATORY INSPECTOR-C More Other Provider Dr. Anthony Singleton Attending [...] Provider Dr. Jordan Ortiz Attending Provider Unavailable CARO LABORATORY INSPECTOR-C OLEG Referring Provider Dr. Tobi Zapata Attending Provider Dr. Faisal Walker Emergency Provider Mirtha, Dr. Tobi Desaiit Provider Mirtha, Dr. Britton Attending Provider Mirtha, Dr. Britton Other Provider Mirtha, Dr. Britton Referring Provider Dr. Alexi Roblero Attending Provider [phone] Alexi Roblero Other Provider Dr. Anthony Singleton Other Provider Dr. Rambo Bruner Other Provider Bev, Dr. Pepe Other Provider Unavail higinio Pulido LABORATORY INSPECTOR, LABORATORY INSPECTOR-C More Other Provider Dr. Anthony Singleton Attending Provider [phone] CARO, LABORATORY INSPECTOR-C OLEG Primary Care Provider CARO, LABORATORY INSPECTOR-C OLEG Referring Provider Dr. Tobi Zapata Attending Provider Dr. Faisal Walker Emergency Provider [phone] Tobi Shannon[address] Provider Dr. Tobi Shannon Attending Provider Dr. Tobi Shannon Other Provider Dr. Tobi Shannon Referring Provider Dr. Suze Rosas Other Provider Dr. Alexi Roblero Attending Provider [phone] Alexi Roblero Other Provider Dr. Anthony Singleton Other Provider Dr. Rambo Bruner Other Provider [phone] Afshin Pablo Other Provider Unavailab le Ashok LABORATORY INSPECTOR, LABORATORY INSPECTOR-C More Other Provider Dr. Suze Rosas Attending Provider Dr. Anthony Singleton Attending Provider Dr. Jordan Ortiz Other Provider Unavailable Dr. Jordan Ortiz Attending Provider Unavailable PIÑA, LABORATORY INSPECTOR-C OLEG Primary Care Provider PIÑA, LABORATORY INSPECTOR-C OLEG Referring Provider Dr. Tobi Zapata Attending Provider Ashok LABORATORY INSPECTOR, LABORATORY INSPECTOR-C More Attending Provider PIÑA, LABORATORY INSPECTOR-C OLEG Primary Care Provider Dr. Anthony Singleton Attending Provider Dr. Anthony Singleton Referring Provider [phone] Anthony Singleton Other Provider Dr. Khai Galeana Attending Provider PIÑA, LABORATORY INSPECTOR-C OLEG Primary Care Provider Dr. Anthony Singleton Attending Provider PIÑA, LABORATORY INSPECTOR-C OLEG Referring Provider Dr. Tobi Zapata Attending Provider Dr. Donna Will Attending Provider [phone] PIÑA, LABORATORY INSPECTOR-C OLEG Primary Care Provider PIÑA, LABORATORY INSPECTOR-C OLEG Referring Provider Dr. Khai Galeana Attending Provider Dr. Donna Will Primary Care Provider Dr. Donna Will Referring Provider Dr. Norm Mello Attending Provider West LABORATORY INSPECTOR, LABORATORY INSPECTOR-C Martha Attending Provider Dr. Jj Garcia Emergency Provider [phone] Loki Lozoya Admit Provider [phone] [...] Unavailable Dr. Donna Will Attending Provider Ashok LABORATORY INSPECTOR, LABORATORY INSPECTOR-C More Attending Provider [phone] Dr. Donna Will Primary Care Provider Dr. [...] Provider Dr. Tobi Zapata Attending Provider Ashok LABORATORY INSPECTOR, LABORATORY INSPECTORChas Aguero Attending Provider Dr. Dwain Nowak Emergency [...] Other Provider Dr. Anthony Singleton Attending Provider [phone] Anthony Singleton Other Provider Dr. Carlito [...] Provider Dr. Donna Will Referring Provider [phone] Tobi Zapata Attending Provider Ashok LABORATORY INSPECTOR, LABORATORY INSPECTOR-C More Attending Provider Dr. Dwain Nowak Emergency [...] Other Provider Dr. Isaias Granados Other Provider [phone] Dr. Alexi Roblero Other Provider Dr. Anthony [...] Provider Dr. Donna Will Attending Provider Rudolph LABORATORY INSPECTOR, LABORATORY INSPECTOR-C Jennifer Attending Provider Dr. Donna Will Primary Care Provider Dr. Donna Will Referring Provider Dr. Tobi Zapata Attending Provider Dr. Tobi Zapata Referring Provider Benny, Dr. Britton Other Provider Dr. Donna Will MD Primary Care Provider Dr. Donna Will MD Attending Provider Dr. Donna Will MD Referring Provider Gumaro LABORATORY INSPECTOR-C, Gris Dominguez Attending Provider Gumaro LABORATORY INSPECTOR-CGris Referring Provider Marcus HILARIO, Elizabeth Dominguez Attending Provider Higinio [place], Dr. Ly Emergency Provider de Americo [place], Dr. Ortega Admit Provider Unavail able Mendoza DO, Dr. Ortega Other Provider Unavail able Darwin TEIXEIRA, Dr. Esparza Other Provider Milana TEIXEIRA, Dr. Peck Other Provider Osbaldo TEIXEIRA, Dr. Truong Other Provider Mani [place], Dr. Cruz Other Provider [phone] Clinton TEIXEIRA, Dr. Jordan Serra Other Provider Mike TEIXEIRA, Dr. Dsouza Other Provider Avi TEIXEIRA, Dr. Esteban Other Provider Raymond TEIXEIRA, Dr. Chow Other Provider Pauly TEIXEIRA, Dr. Wong Other Provider [phone] Lyle TEIXEIRA, Dr. Cochran Other Provider Dr. Kashif Berg MD Other Provider Steve TEIXEIRA, Dr. Johnson Other Provider [phone] Edward TEIXEIRA, Dr. Corbett Other Provider Unavailformerly [facility] jaclyn Dugan MD, Dr. Burrell Other Provider Dr. Mitch Pinzon MD Other Provider Dr. Rajeev Dalton MD Other Provider Ava TEIXEIRA, Dr. Mejia Other Provider Arianna [place], Dr. Menchaca Other Provider [phone] Aaliyah TEIXEIRA, Dr. Crabtree Other Provider Jodi TEIXEIRA, Dr. Urbano Other Provider Austin [place], Dr. Dc Other Provider Corby TEIXEIRA, Dr. Barraza Other Provider Jamey TEIXEIRA, Dr. Holcomb Other Provider [phone] Jaleesa TEIXEIRA, Dr. Huang Paul Attending Provider Mani [place], Dr. Cruz Attending Provider Jaleesa TEIXEIRA, Dr. Huang Paul Referring Provider Jaleesa TEIXEIRA, Dr. Huang Paul Other Provider Lissett [place], Dr. Ridley Attending Provider West LABORATORY INSPECTOR-C, Martha Attending Provider CARO LABORATORY INSPECTOR-C, OLEG Primary Care Provider Benny TEIXEIRA, Dr. [...] Dr. Wilberto Villafuerte MD Attending Provider Dr. Wilberto Villafuerte MD Referring Provider Suman TEIXEIRA, Dr. Thompson Primary Care Provider Suman TEIXEIRA, Dr. Thompson Referring Provider Gumaro LABORATORY INSPECTOR-C, Gris Dominguez Attending Provider Macho TEIXEIRA, Dr. Akins Referring Provider Suman TEIXEIRA, Dr. Thompson Attending Provider Dr. Marco Hoffman DO Emergency Provider Yasmin [place], Dr. Lara Attending Provider Gumaro LABORATORY INSPECTOR-C, Gris Dominguez Referring Provider Suman TEIXEIRA, Dr. Thompson Primary Care Provider [phone] Suman TEIXEIRA, Dr. Thompson Referring Provider Noy TEIXEIRA, Dr. Ladd Attending Provider Noy TEIXEIRA, Dr. Ladd Referring Provider CARO LABORATORY INSPECTOR-C, [employer] Primary Care Provider Benny TEIXEIRA, Dr. Britton Attending Provider [phone] Benny TEIXEIRA, Dr. Britton Referring Provider [phone] Benny TEIXEIRA, Dr. Britton Attending Provider [phone] Benny TEIXEIRA, Dr. Britton Referring Provider [phone] CARO LABORATORY INSPECTOR-C, [employer] Primary Care Provider Suman TEIXEIRA, Dr. Thompson Primary Care Provider [phone] Suman TEIXEIRA, Dr. Thompson Referring Provider Darwin TEIXEIRA, Dr. Esparza Other Provider Milana TEIXEIRA, Dr. Peck Other Provider Dr. Alexi Rolbero MD Other Provider Dr. Anthony Singleton DO Other Provider Clinton TEIXEIRA, Dr. Jordan Serra Other Provider Mike TEIXEIRA, Dr. Dsouza Other Provider [phone] Avi TEIXEIRA, Dr. Esteban Other Provider Raymond TEIXEIRA, Dr. Chow Other Provider Pauly TEIXEIRA, Dr. Wong Other Provider Lyle TEIXEIRA, Dr. Cochran Other Provider Otis TEIXEIRA, Dr. Rowland Other Provider Steve TEIXEIRA, Dr. Johnson Other Provider Edward TEIXEIRA, Dr. Corbett Other Provider Unavailshalom Dugan MD, Dr. Burrell Other Provider Alberta TEIXEIRA, Dr. Meyer Other Provider Sha TEIXEIRA, Dr. Boo Other Provider Ava TEIXEIRA, Dr. Mejia Other Provider Arianna [place], Dr. Menchaca Other Provider [phone] Aaliyah TEIXEIRA, Dr. Crabtree Other Provider Jodi TEIXEIRA, Dr. Urbano Other Provider Austin [place], Dr. Dc Other Provider Corby TEIXEIRA, Dr. Barraza Other Provider Jamey TEIXEIRA, Dr. Holcomb Other Provider Mani [place], Dr. Cruz Attending Provider CARO LABORATORY INSPECTOR-C, OLEG Primary Care Provider Dr. Terry Singh DO Emergency Provider [phone] Aron TEIXEIRA, Dr. Duffy Admit Provider Aron TEIXEIRA, Dr. Duffy Attending Provider Aron TEIXEIRA, Dr. Duffy Other Provider [phone] Chela TEIXEIRA, Dr. Sweet Other Provider Ryan [place], Dr. Jordan Oleary Other Provider Manasa TEIXEIRA, Dr. Wright Other Provider Perez TEIXEIRA, Dr. Iqbal Other Provider Bhupendra LABORATORY INSPECTOR-C, Linda Other Provider Unavailabl jaclyn Greenberg LABORATORY INSPECTOR-C, Katelynn Other Provider Jayesh HILARIO, Ashleigh Other Provider Trevor TEIXEIRA, Dr. Kelley Attending Provider Suman TEIXEIRA, Dr. Thompson Primary Care Provider Suman TEIXEIRA, Dr. Thompson Referring Provider CARO LABORATORY INSPECTOR-C, OLEG Primary Care Provider Suman TEIXEIRA, Dr. Thompson Primary Care Provider Gumaro LABORATORY INSPECTOR-C, Gris Dominguez Attending Provider Suman TEIXEIRA, Dr. Thompson Referring Provider Marcus HILARIO, Elizabeth M Attending Provider Angel TEIXEIRA, Dr. Ortega Referring Provider Unavaila seth Ortiz MD, Dr. Ortega Other Provider Unavailable Darwin TEIXEIRA, Dr. Esparza Other Provider Milana TEIXEIRA, Dr. Peck Other Provider Osbaldo TEIXEIRA, Dr. Truong Other Provider [phone] Mani [place], Dr. Cruz Attending Provider Dr. Anthony Singleton DO Other Provider Clinton TEIXEIRA, Dr. Jordan Serra Other Provider [phone] Mike TEIXEIRA, Dr. Dsouza Other Provider Avi [...] Provider Ava TEIXEIRA, Dr. Mejia Other Provider [phone] Airanna [place], Dr. Menchaca Other Provider Aaliyah TEIXEIRA, Dr. Crabtree Other Provider [phone] Kevin Zapata MD, Dr. Urbano Other Provider [phone] Austin [place], Dr. Dc Other Provider Corby TEIXEIRA, Dr. Barraza Other Provider Jamey TEIXEIRA, Dr. Holocmb Other Provider Tobi Zapata Referring Unavailable Tobi [...] Care Unavailable Jordan Mendoza Admitting Unavailable Isaias Garnados Consulting Unavailable Cisco Cortés Consulting Unavailable Alexi [...] Singleton Attending Unavailable Gris Naik Referring Unavailable Sumna, Donna Primary Care Unavailable Gris Naik Attending [...] Consulting Unavailable Milana, Cisco Consulting Unavailable Alexi Roblreo Consulting Unavailable Anthony Singleton Consulting Unavailable Jordan [...] Nikolai Consulting Unavailable Aaliyah, Leyda Consulting Unavailable Viola, Soleyah Consulting Unavailable Fernstrom, Dao Consulting Unavailable [...] Nikolai Consulting Unavailable Fischer, Sujoy Consulting Unavailable Viola, Soleyah Consulting Unavailable Justinnstrom, Dao Consulting Unavailable Corby, Madi Consulting Unavailable Zhang Concepcion Consulting Unavailable Jordan Mendoza Consulting Unavailable Marco [...] Unavailable Suman, Donna Primary Care Unavailable West LABORATORY INSPECTOR, Martha Attending Unavailable Donna Will Referring Unavailable [...] Consulting Unavailable Linda Huizar Consulting Unavailable Neal LABORATORY INSPECTOR, Katelynn Consulting Unavailable Jayesh, Ashleigh Consulting Unavailable [...] Lieberman Consulting Unavailable Dimas Alvarenga Consulting Unavailable Kashfi Berg Consulting Unavailable Elizabeth Wilson Consulting Unavailable Aric Leon Consulting Unavailable Ashanti Dugan Consulting Unavailable Mitch Pinzon Consulting Unavailable Rajeev Dalton Consulting Unavailable Roberto Escalante Consulting Unavailable Jennifer Kellerkhdeep Consulting Unavailable Leyda Fischer Consulting Unavailable Yolie Zapata Consulting Unavailable Dao Avial Consulting Unavailable Madi Tavarez Consulting Unavailable Zhang Concepcion Consulting Unavailable Chela, Kee Consulting Unavailable RyanJordan anaya Consulting Unavailable Manasa, Adriana Consulting Unavailable Todd, Farida Consulting Unavailable Bhupendra, Linda Consulting Unavailable Neal LABORATORY INSPECTOR, Katelynn Consulting Unavailable Masci, Ashleigh Consulting Unavailable Gris Naik Attending Unavailable Suman, Donna Primary Care Unavailable Gris Naik Referring Unavailable Smuan, Donna Primary Care Unavailable Ashok LABORATORY INSPECTOR, More Attending Unavailable Ashok LABORATORY INSPECTOR, More Referring Unavailable Tobi Zapata Attending Unavailable [...] Darwin TEIXEIRA, Dr. Esparza Nurse Practitioner [phone] Milana TEIXEIRA, Dr. Peck Nurse Practitioner [phone] Osbaldo TEIXEIRA, Dr. Truong Nurse Practitioner Dr. Anthony Singleton DO Nurse Practitioner Clinton TEIXEIRA, Dr. Jordan Serra Nurse Practitioner [phone] Mike TEIXEIRA, Dr. Dsouza Nurse Practitioner Aiv TEIXEIRA, Dr. Esteban Nurse Practitioner [phone] Raymond TEIXEIRA, Dr. Chow Nurse Practitioner Pauly TEIXEIRA, Dr. Wong Nurse Practitioner Lyle TEIXEIRA, Dr. Cochran Nurse Practitioner Otis TEIXEIRA, Dr. Rowland Nurse Practitioner [phone] Steve TEIXEIRA, Dr. Johnson Nurse Practitioner [phone] Edward TEIXEIRA, Dr. Corbett Nurse Practitioner Unavail wilbert Dugan MD, Dr. Burrell Nurse Practitioner Alberta TEIXEIRA, Dr. Meyer Nurse Practitioner Sha TEIXEIRA, Dr. Boo Nurse Practitioner Ava TEIXEIRA, Dr. Mejia Nurse Practitioner [phone] Arianna [place], Dr. Menchaca Nurse Practitioner Aaliyah TEIXEIRA, Dr. Crabtree Nurse Practitioner [phone] Jodi TEIXEIRA, Dr. Urbano Nurse Practitioner Austin [place], Dr. Dc Nurse Practitioner [phone] Corby TEIXEIRA, Dr. Barraza Nurse Practitioner [phone] Jamey TEIXEIRA, Dr. Holcomb Nurse Practitioner Chela TEIXEIRA, Dr. Sweet Nurse Practitioner Ryan [place], Dr. Jordan Oleary Nurse Practitioner Manasa TEIXEIRA, Dr. Wright Nurse Practitioner [phone] Perez TEIXEIRA, Dr. Iqbal Nurse Practitioner Bhupendra LABORATORY INSPECTOR-C, Linda Nurse Practitioner [facility] able Neal LABORATORY INSPECTOR-C, Katelynn Nurse Practitioner Ashleigh Mahajan Nurse Practitioner Aron TEIXEIRA, Dr. Duffy Nurse Practitioner Trevor TEIXEIRA, Dr. Kelley Attending Physician Suman TEIXEIRA, Dr. Thompson Referring Provider Benny TEIXEIRA, Dr. Britton Attending Physician Suman TEIXEIRA, Dr. Thompson Attending Physician Gumaro BOSS-CGris Attending Physician Elizabeth Mayfield Attending Physician Gumaro ROWELLGris Referring Provider Dr. Tobi Zapata MD Referring Provider CARO ROWELL, OLEG Primary Care Physician Allergies Allergy Classification Reported Allergen(s) Allergy Type Date of Onset Reaction(s) Facility (5 sources) Famotidine Drug Allergy 2 Diarrhea [facility] Work Phone: (20 sources) levoFLOXacin Drug Allergy 2 dizziness, diarrhea, dizziness, GI upset, weakness [facility] (1 source) levoFLOXacin Drug Allergy 5 [facility] Repository Medications Current Medications Medication Drug Class(es) Dates Sig (Normalized) Sig (Original) acetaminophen 500 mg oral tablet (20 sources) Start: 05-16-2021 take 1000 mg by mouth every six hours as needed Acetaminophen Active 1000 MG PO EVERY 6 HOURS NEEDED 0 May 16, 2021 8:24pm Start: 05-04-2021 End: 05-16-2021 [id number] 200 actuat albuter ol 0.09 mg/actuat metered [...] docusate sodium 50 mg / larry osides, detention 8.6 mg oral tablet (20 sources) Start: [...] extended release oral tablet (20 sources) Uncompetitive I-azorxp-L-aspartate Receptor Antagonist, Sigma-1 Agonist Start: 11-11-2023 End: [...] mL by inhalation every six hours Ipratropium Kinsey Discontinued 2.5 ML INHALATION EVERY 6 HOURS [...] 21, 2021 11:35am December 08, 2021 7:17pm Multivitamin,Us-Hrfb-Psbswsj s (20 sources) Start: 09-11-2013 End: 09-13-2019 take 1 tablet by mouth once daily Multivitamin,My-Xfhy-Incdjotx Discontinued 1 TABLET PO DAILY September 11, 2013 1:21pm September 13, 2019 1:47pm Start: 09-11-2013 End: 09-13-2019 take 1 tablet by mouth once daily Multivitamin,Ga-Bcom-Oxdvfnuo Discontinu ed 1 TABLET PO DAILY September 10, 2013 11:00pm September 13, 2019 12:47pm Start: 09-11-2013 End: 09-13-2019 take 1 tablet by mouth once daily Multivitamin,Ye-Mntx-Smlsqqja Discontinu ed 1 TABLET PO DAILY September [...] ml riTUXimab 10 mg/ml injection (20 sources) BR45-vuhparss Cytolytic Antibody Start: 09-28-2019 End: 03-25-2021 rituximab [...] Coronary arteriosclerosis; Translations: [Atherosclerotic heart disease of [place] coronary artery without angina pectoris] Chronic Deficiency [...] Respiratory failure; insufficiency; arrest (adult) (20 sources) Tgliw-ml-hvjgoog respiratory failure; Translations: [Acute and chronic respiratory [...] Auto (Unsp spec) [#/Vol] 2.80 10*3/uL 0.83-4.51 [facility] Anion gap in Serum or Plasma Ordered By: Tobi Zapata on 12-06-2024 Anion gap [Moles/Vol] 15 mmol/L 5-15 [facility] Automated lymphocyte count a s percentage of total leukocytesOrdered By: Tobi Zapata on 12-06-2024 Lymphocytes/100 WBC Auto (Unsp spec) 25.0 % 19-41 [facility] BUN/creatinine ratioOrdered By: Tobi Zapata on 12-06-2024 Urea nitrogen/Creatinine [Mass ratio] 22.1 mg/mg High 10-20 [facility] Basophil percentageOrdered B y: Tobi Zapata on 12-06-2024 Basophils/100 WBC (Bld) 0.8 % 0-[address] [facility] Bilirubin, totalOrdered By: Tobi Zapata on 12-06-2024 Bilirubin [Mass/Vol] 0.45 mg/dL 0.00-1.30 [facility] Carbon dioxide, total [Moles /volume] in Central venous bloodOrdered By: Tobi Zapata on 12-06-2024 CO2 [Moles/Vol] 26.7 mmol/L 21.0-32.0 [facility] Chloride assayOrdered By: Fabiana Zapata on 12-06-2024 Chloride [Moles/Vol] 97 mmol/L Low 98-108 [facility] Eosinophil percentageOrdered By: Tobi Zapata on 12-06-2024 Eosinophils/100 WBC (Bld) 4.1 % 0-5 [facility] Erythrocyte distribution wid th ratioOrdered By: Tobi Zapata on 12-06-2024 Erythrocyte distribution width (RBC) [Ratio] 17.9 % High 11.6-14.6 [facility] Erythrocyte distribution wid th standard deviationOrdered By: Tobi Zapata on 12-06-2024 Erythrocyte distribution width (RBC) [Ratio] 63.7 fl High 35.1-43.9 [facility] Erythrocyte sedimentation ra teOrdered By: Tobi Zapata on 12-06-2024 ESR (Bld) [Velocity] 21 mm/h High 0-20 [facility] Glomerular filtration rate ( GFR) estimation/1.73 sq m using serum, plasma, or whole bOrdered By: Tobi Zapata on 12-06-2024 GFR/1.73 sq M.predicted among non-blacks MDRD (S/P/Bld) [Vol rate/Area] 24 mL/min/{1.73_m2} Low >60 [facility] Hematocrit Auto (Bld) [Volum e fraction]Ordered By: Tobi Zapata on 12-06-2024 Hematocrit (Bld) [Volume fraction] 30.9 % Low 40-54 [facility] Hemoglobin A1c percentageOrd ered By: Donna Will on 12-06-2024 HbA1c (Bld) [Mass fraction] 11.6 % High <5.7 [facility] Hemoglobin measurementOrdere d By: Tobi Zapata on 12-06-2024 Hemoglobin (Bld) [Mass/Vol] 10.1 g/dL Low 13.0-16.5 [facility] Immature granulocytes/100 WB C Auto (Bld)Ordered By: Tobi Zapata on 12-06-2024 Immature granulocytes/100 WBC (Bld) 4.500 % High 0.0-0.9 [facility] Iron measurement (mass/mass) Ordered By: Tobi Zapata on 12-06-2024 Iron (Unsp spec) [Mass/Mass] 98 ug/dL 65-175 [facility] MCV (mean corpuscular volume ) determinationOrdered By: Tobi Zapata on 12-06-2024 MCV (RBC) [Entitic vol] 97.5 fL High 80-[address] [facility] Magnesium measurement (mass/ volume)Ordered By: Tobi Zapata on 12-06-2024 Magnesium (Unsp spec) [Mass/Vol] 2.3 mg/dL High 1.5-2.2 [facility] Mean corpuscular hemoglobin (MCH) determinationOrdered By: Tobi Zapata on 12-06-2024 MCH (RBC) [Entitic mass] 31.9 pg 27.0-32.0 [facility] Monocyte percentageOrdered B y: Tobi Zapata on 12-06-2024 Monocytes/100 WBC (Bld) 10.2 % High 0-[address] [facility] Neutrophil percentageOrdered By: Tobi Zapata on 12-06-2024 Neutrophils/100 WBC (Bld) 55.4 % 47-70 [facility] No Panel InformationOrdered By: Tobi Zapata on 12-06-2024 19 U/L <38 [facility] 158 ug/dL Low 228-428 [facility] Platelet countOrdered By: Fabiana Zapata on 12-06-2024 Platelets (Bld) [#/Vol] 282 10*3/uL 150-450 [facility] Potassium measurement (mass/ volume)Ordered By: Tobi Zapata on 12-06-2024 Potassium (Unsp spec) [Mass/Vol] 4.3 mmol/L 3.3-5.1 [facility] RBC Auto (Bld) [#/Vol]Ordere d By: Tobi Zapata on 12-06-2024 RBC (Bld) [#/Vol] 3.17 10*6/uL Low 4.6-6.2 [facility] Serum creatinine measurement (mass/volume)Ordered By: Tobi Zapata on 12-06-2024 Creatinine [Mass/Vol] 2.70 mg/dL High 0.70-1.20 [facility] Serum globulin measurementOr dered By: Tobi Zapata on 12-06-2024 Globulin (S) [Mass/Vol] 3.0 g/dL 2.2-4.2 [facility] Serum glucose measurement (m ass/volume)Ordered By: Tobi Zapata on 12-06-2024 Glucose [Mass/Vol] 229 mg/dL High 70-99 [facility] Serum or plasma C reactive p rotein measurement (mass/volume)Ordered By: Tobi Zapata on 12-06-2024 CRP [Mass/Vol] 5.31 mg/L High 0.0-3.0 [facility] Serum or plasma alanine barber otransferase (ALT) measurementOrdered By: Tobi Zapata on 12-06-2024 ALT [Catalytic activity/Vol] 27 U/L <47 [facility] Serum or plasma albumin yocasta urement (mass/volume)Ordered By: Tobi Zapata on 12-06-2024 Albumin [Mass/Vol] 4.3 g/dL 3.4-4.8 [facility] Serum or plasma albumin/glob ulin mass ratioOrdered By: Tobi Zapata on 12-06-2024 Albumin/Globulin [Mass ratio] 1.4 {ratio} 0.9-2.4 [facility] Serum or plasma alkaline justin sphatase measurementOrdered By: Tobi Zapata on 12-06-2024 ALP [Catalytic activity/Vol] 79 U/L 40-129 [facility] Serum or plasma calcium yocasta urement (mass/volume)Ordered By: Tobi Zapata on 12-06-2024 Calcium [Mass/Vol] 9.6 mg/dL 7.6-11.0 [facility] Serum or plasma erythropoiet in (EPO) measurement (units/volume)Ordered By: Tobi Zapata on 12-06-2024 Erythropoietin (EPO) Qn 27.1 mIU/mL High 2.6-18.5 [facility] Serum or plasma ferritin vasquez surement (mass/volume)Ordered By: Tobi Zapata on 12-06-2024 Ferritin [Mass/Vol] 247 ng/mL 37-417 [facility] Serum or plasma iron saturat ion measurement (mass fraction)Ordered By: Tobi Zapata on 12-06-2024 Iron saturation [Mass fraction] 38.2 % 9-55 [facility] Serum or plasma urea nitroge n measurement (mass/volume)Ordered By: Tobi Zaapta on 12-06-2024 Urea nitrogen [Mass/Vol] 60 mg/dL High 4-19 [facility] Sodium levelOrdered By: Dimas Zapata on 12-06-2024 Sodium [Moles/Vol] 138 mmol/L 133-145 [facility] Total proteinOrdered By: Mikael Zapata on 12-06-2024 Protein [Mass/Vol] 7.3 g/dL 5.9-8.4 [facility] Vitamin B12 ser/plasOrdered By: Tobi Zapata on 12-06-2024 Cobalamin (Vitamin B12) [Mass/Vol] 895 pg/mL 180-914 [facility] White blood cell (WBC) count Ordered By: Tobi Zapata on 12-06-2024 WBC (Bld) [#/Vol] 11.2 10*3/uL High 4.4-11.0 [facility] Stool gastrointestinal hemog lobin detection by immunologic methodOrdered By: Tobi Zapata on 11-25-2024 Lower GI hemoglobin IA Ql (Stl) Positive Abnormal [facility] Anion gap in Serum or Plasma Ordered By: Donna Will on 09-24-2024 Anion gap [Moles/Vol] 14 mmol/L 5-15 [facility] BUN/creatinine ratioOrdered By: Donna Will on 09-24-2024 Urea nitrogen/Creatinine [Mass ratio] 36.0 mg/mg High 10-20 [facility] Carbon dioxide, total [Moles /volume] in Central venous bloodOrdered By: Donna Will on 09-24-2024 CO2 [Moles/Vol] 27.8 mmol/L 21.0-32.0 [facility] Chloride assayOrdered By: Toyin Will on 09-24-2024 Chloride [Moles/Vol] 103 mmol/L 98-108 [facility] Glomerular filtration rate ( GFR) estimation/1.73 sq m using serum, plasma, or whole bOrdered By: Donna Will on 09-24-2024 GFR/1.73 sq M.predicted among non-blacks MDRD (S/P/Bld) [Vol rate/Area] 39 mL/min/{1.73_m2} Low >60 [facility] Magnesium measurement (mass/ volume)Ordered By: Donna Will on 09-24-2024 Magnesium (Unsp spec) [Mass/Vol] 2.2 mg/dL 1.5-2.2 [facility] Natriuretic peptide.B prohor sena N-Terminal [Mass/volume] in Serum or PlasmaOrdered By: Donna Will on 09-24-2024 Natriuretic peptide.B prohormone N-Terminal [Mass/Vol] 4995 pg/mL High <1800 [facility] Potassium measurement (mass/ volume)Ordered By: Donna Will on 09-24-2024 Potassium (Unsp spec) [Mass/Vol] 4.9 mmol/L 3.3-5.1 [facility] Serum creatinine measurement (mass/volume)Ordered By: Donna Will on 09-24-2024 Creatinine [Mass/Vol] 1.78 mg/dL High 0.70-1.20 [facility] Serum glucose measurement (m ass/volume)Ordered By: Donna Will on 09-24-2024 Glucose [Mass/Vol] 266 mg/dL High 70-99 [facility] Serum or plasma calcium yocasta urement (mass/volume)Ordered By: Donna Will on 09-24-2024 Calcium [Mass/Vol] 9.4 mg/dL 7.6-11.0 [facility] Serum or plasma urea nitroge n measurement (mass/volume)Ordered By: Donna Will on 09-24-2024 Urea nitrogen [Mass/Vol] 64 mg/dL High 4-19 [facility] Sodium levelOrdered By: Paula Will on 09-24-2024 Sodium [Moles/Vol] 145 mmol/L 133-145 [facility] Vitamin B12 ser/plasOrdered By: Donna Will on 09-24-2024 Cobalamin (Vitamin B12) [Mass/Vol] 1005 pg/mL High 180-914 [facility] Absolute lymphocyte countOrd ered By: Tobi Zapata on 09-13-2024 Lymphocytes Auto (Unsp spec) [#/Vol] 2.82 10*3/uL 0.83-4.51 [facility] Anion gap in Serum or Plasma Ordered By: Tobi Zapata on 09-13-2024 Anion gap [Moles/Vol] 17 mmol/L High 5-15 [facility] Automated lymphocyte count a s percentage of total leukocytesOrdered By: Tobi Zapata on 09-13-2024 Lymphocytes/100 WBC Auto (Unsp spec) 27.6 % 19-41 [facility] BUN/creatinine ratioOrdered By: Tobi Zapata on 09-13-2024 Urea nitrogen/Creatinine [Mass ratio] 23.7 mg/mg High 10-20 [facility] Basophil percentageOrdered B y: Tobi Zapata on 09-13-2024 Basophils/100 WBC (Bld) 0.6 % 0-1 [facility] Bilirubin, totalOrdered By: Tobi Zapata on 09-13-2024 Bilirubin [Mass/Vol] 0.49 mg/dL 0.00-1.30 [facility] Carbon dioxide, total [Moles /volume] in Central venous bloodOrdered By: Tobi Zapata on 09-13-2024 CO2 [Moles/Vol] 28.5 mmol/L 21.0-32.0 [facility] Chloride assayOrdered By: Fabiana Zapata on 09-13-2024 Chloride [Moles/Vol] 97 mmol/L Low 98-108 [facility] Eosinophil percentageOrdered By: Tobi Zapata on 09-13-2024 Eosinophils/100 WBC (Bld) 4.8 % 0-5 [facility] Erythrocyte distribution wid th ratioOrdered By: Tobi Zapata on 09-13-2024 Erythrocyte distribution width (RBC) [Ratio] 17.0 % High 11.6-14.6 [facility] Erythrocyte distribution wid th standard deviationOrdered By: Tobi Zapata on 09-13-2024 Erythrocyte distribution width (RBC) [Ratio] 58.6 fl High 35.1-43.9 [facility] Glomerular filtration rate ( GFR) estimation/1.73 sq m using serum, plasma, or whole bOrdered By: Tobi Zapata on 09-13-2024 GFR/1.73 sq M.predicted among non-blacks MDRD (S/P/Bld) [Vol rate/Area] 31 mL/min/{1.73_m2} Low >60 [facility] Hematocrit Auto (Bld) [Volum e fraction]Ordered By: Tobi Zapata on 09-13-2024 Hematocrit (Bld) [Volume fraction] 31.9 % Low 40-54 [facility] Hemoglobin measurementOrdere d By: Tobi Zapata on 09-13-2024 Hemoglobin (Bld) [Mass/Vol] 10.3 g/dL Low 13.0-16.5 [facility] Immature granulocytes/100 WB C Auto (Bld)Ordered By: Tobi Zapata on 09-13-2024 Immature granulocytes/100 WBC (Bld) 1.900 % High 0.0-0.9 [facility] Iron measurement (mass/mass) Ordered By: Tobi Zapata on 09-13-2024 Iron (Unsp spec) [Mass/Mass] 104 ug/dL 65-175 [facility] MCV (mean corpuscular volume ) determinationOrdered By: Tobi Zapata on 09-13-2024 MCV (RBC) [Entitic vol] 95.2 fL High 80-[address] [facility] Mean corpuscular hemoglobin (MCH) determinationOrdered By: Tobi Zapata on 09-13-2024 MCH (RBC) [Entitic mass] 30.7 pg 27.0-32.0 [facility] Monocyte percentageOrdered B y: Tobi Zapata on 09-13-2024 Monocytes/100 WBC (Bld) 12.4 % High 0-[address] [facility] Neutrophil percentageOrdered By: Tobi Zapata on 09-13-2024 Neutrophils/100 WBC (Bld) 52.7 % 47-70 [facility] No Panel InformationOrdered By: Tobi Zapata on 09-13-2024 21 U/L <38 [facility] 125 ug/dL Low 228-428 [facility] Platelet countOrdered By: Fabiana Zapata on 09-13-2024 Platelets (Bld) [#/Vol] 250 10*3/uL 150-450 [facility] Potassium measurement (mass/ volume)Ordered By: Tobi Zapata on 09-13-2024 Potassium (Unsp spec) [Mass/Vol] 4.3 mmol/L 3.3-5.1 [facility] RBC Auto (Bld) [#/Vol]Ordere d By: Tobi Zapata on 09-13-2024 RBC (Bld) [#/Vol] 3.35 10*6/uL Low 4.6-6.2 [facility] Serum creatinine measurement (mass/volume)Ordered By: Tobi Zapata on 09-13-2024 Creatinine [Mass/Vol] 2.18 mg/dL High 0.70-1.20 [facility] Serum globulin measurementOr dered By: Tobi Zapata on 09-13-2024 Globulin (S) [Mass/Vol] 3.2 g/dL 2.2-4.2 [facility] Serum glucose measurement (m ass/volume)Ordered By: Tobi Zapata on 09-13-2024 Glucose [Mass/Vol] 131 mg/dL High 70-99 [facility] Serum or plasma alanine barber otransferase (ALT) measurementOrdered By: Tobi Zapata on 09-13-2024 ALT [Catalytic activity/Vol] 20 U/L <47 [facility] Serum or plasma albumin yocasta urement (mass/volume)Ordered By: Tobi Zapata on 09-13-2024 Albumin [Mass/Vol] 4.2 g/dL 3.4-4.8 [facility] Serum or plasma albumin/glob ulin mass ratioOrdered By: Tobi Zapata on 09-13-2024 Albumin/Globulin [Mass ratio] 1.3 {ratio} 0.9-2.4 [facility] Serum or plasma alkaline justin sphatase measurementOrdered By: Tobi Zapata on 09-13-2024 ALP [Catalytic activity/Vol] 77 U/L 40-129 [facility] Serum or plasma calcium yocasta urement (mass/volume)Ordered By: Tobi Zapata on 09-13-2024 Calcium [Mass/Vol] 9.5 mg/dL 7.6-11.0 [facility] Serum or plasma ferritin vasquez surement (mass/volume)Ordered By: Tobi Zapata on 09-13-2024 Ferritin [Mass/Vol] 605 ng/mL High 37-417 [facility] Serum or plasma iron saturat ion measurement (mass fraction)Ordered By: Tobi Zapata on 09-13-2024 Iron saturation [Mass fraction] 45.4 % 9-55 [facility] Serum or plasma urea nitroge n measurement (mass/volume)Ordered By: Tobi Zapata on 09-13-2024 Urea nitrogen [Mass/Vol] 52 mg/dL High 4-19 [facility] Sodium levelOrdered By: Dimas Zapata on 09-13-2024 Sodium [Moles/Vol] 142 mmol/L 133-145 [facility] Total proteinOrdered By: Mikael Zapata on 09-13-2024 Protein [Mass/Vol] 7.3 g/dL 5.9-8.4 [facility] Vitamin B12 ser/plasOrdered By: Tobi Zapata on 09-13-2024 Cobalamin (Vitamin B12) [Mass/Vol] 972 pg/mL High 180-914 [facility] White blood cell (WBC) count Ordered By: Tobi Zapata on 09-13-2024 WBC (Bld) [#/Vol] 10.2 10*3/uL 4.4-11.0 [facility] Absolute lymphocyte countOrd ered By: Clive Sharp on 08-25-2024 Lymphocytes Auto (Unsp spec) [#/Vol] 1.95 10*3/uL 0.83-4.51 [facility] Anion gap in Serum or Plasma Ordered By: Clive Sharp on 08-25-2024 Anion gap [Moles/Vol] 9 mmol/L 5-15 [facility] Automated lymphocyte count a s percentage of total leukocytesOrdered By: Clive Sharp on 08-25-2024 Lymphocytes/100 WBC Auto (Unsp spec) 21.0 % 19-41 [facility] BUN/creatinine ratioOrdered By: Clive Sharp on 08-25-2024 Urea nitrogen/Creatinine [Mass ratio] 20.6 mg/mg High 10-20 [facility] Basophil percentageOrdered B y: Clive Sharp on 08-25-2024 Basophils/100 WBC (Bld) 0.2 % 0-[address] [facility] Blood manual differential co mment interpretation (narrative result)Ordered By: Clive Sharp on 08-25-2024 Manual differential comment Sohan (Bld) [Interp] SCANNED [facility] Carbon dioxide, total [Moles /volume] in Central venous bloodOrdered By: Clive Sharp on 08-25-2024 CO2 [Moles/Vol] 35.3 mmol/L High 21.0-32.0 [facility] Chloride assayOrdered By: Little Sharp on 08-25-2024 Chloride [Moles/Vol] 99 mmol/L 98-108 [facility] Eosinophil percentageOrdered By: Clive Sharp on 08-25-2024 Eosinophils/100 WBC (Bld) 3.2 % 0-5 [facility] Erythrocyte distribution wid th ratioOrdered By: Clive Sharp on 08-25-2024 Erythrocyte distribution width (RBC) [Ratio] 17.8 % High 11.6-14.6 [facility] Erythrocyte distribution wid th standard deviationOrdered By: Clive Sharp on 08-25-2024 Erythrocyte distribution width (RBC) [Ratio] 65.8 fl High 35.1-43.9 [facility] Glomerular filtration rate ( GFR) estimation/1.73 sq m using serum, plasma, or whole bOrdered By: Clive Sharp on 08-25-2024 GFR/1.73 sq M.predicted among non-blacks MDRD (S/P/Bld) [Vol rate/Area] 45 mL/min/{1.73_m2} Low >60 [facility] Hematocrit Auto (Bld) [Volum e fraction]Ordered By: Clive Sharp on 08-25-2024 Hematocrit (Bld) [Volume fraction] 28.8 % Low 40-54 [facility] Hemoglobin measurementOrdere d By: Clive Sharp on 08-25-2024 Hemoglobin (Bld) [Mass/Vol] 9.0 g/dL Low 13.0-16.5 [facility] Immature granulocytes/100 WB C Auto (Bld)Ordered By: Clive Sharp on 08-25-2024 Immature granulocytes/100 WBC (Bld) 1.600 % High 0.0-0.9 [facility] MCV (mean corpuscular volume ) determinationOrdered By: Clive Sharp on 08-25-2024 MCV (RBC) [Entitic vol] 99.7 fL High 80-[address] [facility] Mean corpuscular hemoglobin (MCH) determinationOrdered By: Clive Sharp on 08-25-2024 MCH (RBC) [Entitic mass] 31.1 pg 27.0-32.0 [facility] Monocyte percentageOrdered B y: Clive Sharp on 08-25-2024 Monocytes/100 WBC (Bld) 10.9 % High 0-[address] [facility] Neutrophil percentageOrdered By: Clive Sharp on 08-25-2024 Neutrophils/100 WBC (Bld) 63.1 % 47-70 [facility] Platelet countOrdered By: Little Sharp on 08-25-2024 Platelets (Bld) [#/Vol] 214 10*3/uL 150-450 [facility] Potassium measurement (mass/ volume)Ordered By: Clive Sharp on 08-25-2024 Potassium (Unsp spec) [Mass/Vol] 3.7 mmol/L 3.3-5.1 [facility] RBC Auto (Bld) [#/Vol]Ordere d By: Clive Sharp on 08-25-2024 RBC (Bld) [#/Vol] 2.89 10*6/uL Low 4.6-6.2 [facility] Serum creatinine measurement (mass/volume)Ordered By: Clive Sharp on 08-25-2024 Creatinine [Mass/Vol] 1.61 mg/dL High 0.70-1.20 [facility] Serum glucose measurement (m ass/volume)Ordered By: Clive Sharp on 08-25-2024 Glucose [Mass/Vol] 91 mg/dL 70-99 [facility] Serum or plasma calcium yocasta urement (mass/volume)Ordered By: Clive Sharp on 08-25-2024 Calcium [Mass/Vol] 8.0 mg/dL 7.6-11.0 [facility] Serum or plasma urea nitroge n measurement (mass/volume)Ordered By: Clive Sharp on 08-25-2024 Urea nitrogen [Mass/Vol] 33 mg/dL High 4-19 [facility] Sodium levelOrdered By: Gavin Sharp on 08-25-2024 Sodium [Moles/Vol] 143 mmol/L 133-145 [facility] White blood cell (WBC) count Ordered By: Clive Sharp on 08-25-2024 WBC (Bld) [#/Vol] 9.3 10*3/uL 4.4-11.0 [facility] Anaerobic cultureOrdered By: Clive Sharp on 08-24-2024 Bacteria identified Anaer cx Nom (Unsp spec) No growth in 5 days. [facility] Body fluid appearance (nomin al result)Ordered By: Kashif Berg on 08-24-2024 Appearance (Body fld) SL CLDY [facility] Body fluid color determinati onOrdered By: Kashif Berg on 08-24-2024 Color (Body fld) YELLOW [facility] Body fluid cultureOrdered By : Clive Sharp on 08-24-2024 Microbial culture, body fluid Culture exhibits no growth. [facility] Body fluid leukocytes count (number/volume)Ordered By: Kashif Berg on 08-24-2024 WBC (Body fld) [#/Vol] 0.526 10*3/uL [facility] Body fluid lymphocytes/100 l eukocytesOrdered By: Kashif Berg on 08-24-2024 Lymphocytes/100 WBC (Body fld) 31 % [facility] Lymphocytes/100 WBC (Body fld) 26 % [facility] Body fluid macrophage countO rdered By: Kashif Berg on 08-24-2024 Macrophages (Body fld) [#/Vol] 10 % [facility] Macrophages (Body fld) [#/Vol] 27 % [facility] Body fluid mesothelial cell percentageOrdered By: Kashif Berg on 08-24-2024 Mesothelial cells/100 WBC (Body fld) 1 % [facility] Mesothelial cells/100 WBC (Body fld) 5 % [facility] Body fluid mononuclear cell percentageOrdered By: Kashif Berg on 08-24-2024 Mononuclear cells/100 WBC (Body fld) 66.6 % [facility] Body fluid other cell count as percentage of leukocytesOrdered By: Kashif Berg on 08-24-2024 Other cells/100 WBC (Body fld) 4 % [facility] Body fluid pHOrdered By: Ezequiel Sharp on 08-24-2024 pH (Body fld) 7.6 [pH] Not Estab. [facility] Body fluid segmented neutrop hils count (number/volume)Ordered By: Kashif Berg on 08-24-2024 Segmented neutrophils (Body fld) [#/Vol] 47 % [facility] Segmented neutrophils (Body fld) [#/Vol] 33 % [facility] Body fluid total cell countO rdered By: Kashif Berg on 08-24-2024 Cells Counted Total (Body fld) [#] 0.580 10^3/ul [facility] Cytology report of Body flui d Cyto stainOrdered By: Clive Sharp on 08-24-2024 Cytology report Cyto stain Doc (Body fld) SEE PATHOLOGY REPORT [facility] Electrocardiogram reportOrde red By: Norm Mello on 08-24-2024 EKG study [facility] Work Phone: Gram stainOrdered By: Brad Sharp on 08-24-2024 Microscopic observation Gram stain Nom (Unsp spec) [facility] Monocyte detectionOrdered By : Kashif Berg on 08-24-2024 Monocytes/100 WBC (Bld) 7 % [facility] Monocytes/100 WBC (Bld) 9 % [facility] No Panel InformationOrdered By: Kashif Berg on 08-24-2024 294 /mm3 [facility] SEE COMMENT [facility] No Panel InformationOrdered By: Clive Sharp on 08-24-2024 1+ [facility] Ovalocyte detectionOrdered B y: Clive Sharp on 08-24-2024 Ovalocytes LM Ql (Bld) 1+ [facility] Pathologist interpretation o f Body fluid testsOrdered By: Kashif Berg on 08-24-2024 Pathologist interpretation (Body fld) [Interp] Reviewed [facility] Specimen source identificati on of body fluidOrdered By: Kashif Berg on 08-24-2024 Specimen source Nom (Body fld) PLEURAL FLUID/LEFT [facility] Total proteinOrdered By: Ezequiel Sharp on 08-24-2024 Protein [Mass/Vol] 5.4 g/dL Low 5.9-8.4 [facility] Glucose measurement at bedsi deOrdered By: Clive Sharp on 08-23-2024 Glucose [Mass/Vol] 89 mg/dL 74-106 [facility] Limited echocardiogram repor tOrdered By: Warren Murray on 08-23-2024 Study report [facility] Work Phone: Magnesium measurement (mass/ volume)Ordered By: Clive Sharp on 08-23-2024 Magnesium (Unsp spec) [Mass/Vol] 1.9 mg/dL 1.5-2.2 [facility] Calculated very low density lipoprotein (VLDL) cholesterol measurementOrdered By: Clive Sharp on 08-22-2024 Calculated very low density lipoprotein (VLDL) cholesterol measurement 22 mg/dL 5-40 [facility] Hemoglobin A1c percentageOrd ered By: Clive Sharp on 08-22-2024 HbA1c (Bld) [Mass fraction] 7.4 % High <5.7 [facility] LDL calc ser/plasOrdered By: Clive Sharp on 08-22-2024 Cholesterol in LDL [Mass/Vol] 77 mg/dL [facility] Serum or plasma cholesterol in HDL measurement (mass/volume)Ordered By: Clive Sharp on 08-22-2024 Cholesterol in HDL [Mass/Vol] 46 mg/dL >40 [facility] Serum or plasma cholesterol measurement (mass/volume)Ordered By: Clive Sharp on 08-22-2024 Cholesterol [Mass/Vol] 145 mg/dL <201 [facility] TSH DL <= 0.005 mIU/L QnOrde red By: Clive Sharp on 08-22-2024 TSH Qn 0.337 uIU/mL 0.300-4.200 [facility] Absolute lymphocyte countOrd ered By: Terry Singh on 08-21-2024 Lymphocytes Auto (Unsp spec) [#/Vol] 1.57 10*3/uL 0.83-4.51 [facility] Activated partial thrombopla stin time (aPTT) in platelet poor plasma by coagulation aOrdered By: Terry Singh on 08-21-2024 aPTT Coag (PPP) [Time] 25.6 s 24.1-36.2 [facility] Anion gap in Serum or Plasma Ordered By: Terry Singh on 08-21-2024 Anion gap [Moles/Vol] 11 mmol/L 5-15 [facility] Assessment of wrist artery p atency prior to arterial punctureOrdered By: Terry Singh on 08-21-2024 Arterial patency Wrist artery --pre arterial puncture Positive [facility] Automated lymphocyte count a s percentage of total leukocytesOrdered By: Terry Singh on 08-21-2024 Lymphocytes/100 WBC Auto (Unsp spec) 15.2 % Low 19-41 [facility] BUN/creatinine ratioOrdered By: Terry Singh on 08-21-2024 Urea nitrogen/Creatinine [Mass ratio] 16.6 mg/mg 10-20 [facility] Basophil percentageOrdered B y: Terry Singh on 08-21-2024 Basophils/100 WBC (Bld) 0.3 % 0-[address] [facility] Bilirubin Test strip Ql (U)O rdered By: Terry Singh on 08-21-2024 Bilirubin Ql (U) Negative Negative [facility] Bilirubin, totalOrdered By: Terry Singh on 08-21-2024 Bilirubin [Mass/Vol] 0.49 mg/dL 0.00-1.30 [facility] Blood base excess determinat ionOrdered By: Terry Singh on 08-21-2024 Base excess Calc (BldV) [Moles/Vol] 16 mmol/L High -2-2 [facility] Blood bicarbonate measuremen tOrdered By: Terry Singh on 08-21-2024 HCO3 (Bld) [Moles/Vol] 39.9 mmol/L High 22-[address] [facility] Blood cultureOrdered By: Faustino Singh on 08-21-2024 Bacteria identified Cx Nom (Bld) No growth in 5 days. [facility] Bacteria identified Cx Nom (Bld) Positive Abnormal [facility] Blood polychromasia detectio n by light microscopyOrdered By: Terry Singh on 08-21-2024 Polychromasia LM Ql (Bld) 1+ [facility] Carbon dioxide, total [Moles /volume] in Central venous bloodOrdered By: Terry Singh on 08-21-2024 CO2 [Moles/Vol] 29.3 mmol/L 21.0-32.0 [facility] Chloride assayOrdered By: Dave Singh on 08-21-2024 Chloride [Moles/Vol] 105 mmol/L 98-108 [facility] Eosinophil percentageOrdered By: Terry Singh on 08-21-2024 Eosinophils/100 WBC (Bld) 1.9 % 0-5 [facility] Erythrocyte distribution wid th ratioOrdered By: Terry Singh on 08-21-2024 Erythrocyte distribution width (RBC) [Ratio] 18.4 % High 11.6-14.6 [facility] Erythrocyte distribution wid th standard deviationOrdered By: Terry Singh on 08-21-2024 Erythrocyte distribution width (RBC) [Ratio] 68.8 fl High 35.1-43.9 [facility] Glomerular filtration rate ( GFR) estimation/1.73 sq m using serum, plasma, or whole bOrdered By: Terry Singh on 08-21-2024 GFR/1.73 sq M.predicted among non-blacks MDRD (S/P/Bld) [Vol rate/Area] 59 mL/min/{1.73_m2} Low >60 [facility] Gram stainOrdered By: Brad Sharp on 08-21-2024 Microscopic observation Gram stain Nom (Unsp spec) [facility] Hematocrit Auto (Bld) [Volum e fraction]Ordered By: Terry Singh on 08-21-2024 Hematocrit (Bld) [Volume fraction] 28.8 % Low 40-54 [facility] Hemoglobin measurementOrdere d By: Terry Singh on 08-21-2024 Hemoglobin (Bld) [Mass/Vol] 8.7 g/dL Low 13.0-16.5 [facility] Immature granulocytes/100 WB C Auto (Bld)Ordered By: Terry Singh on 08-21-2024 Immature granulocytes/100 WBC (Bld) 1.100 % High 0.0-0.9 [facility] Influenza virus A and B and SARS-CoV-2 (COVID-19) and Respiratory syncytial virus RNAOrdered By: Clive Sharp on 08-21-2024 SARS-CoV-2 (COVID-19) RNA JUSTIN+probe Ql (Unsp spec) [facility] Ketones Test strip Ql (U)Ord ered By: Terry Singh on 08-21-2024 Ketones Ql (U) Negative Negative [facility] MCV (mean corpuscular volume ) determinationOrdered By: Terry Singh on 08-21-2024 MCV (RBC) [Entitic vol] 101.8 fL High 80-[address] [facility] Mean corpuscular hemoglobin (MCH) determinationOrdered By: Terry Singh on 08-21-2024 MCH (RBC) [Entitic mass] 30.7 pg 27.0-32.0 [facility] Measurement, pHOrdered By: Carlo Singh on 08-21-2024 pH (Unsp spec) 7.45 [pH] 7.35-7.45 [facility] Microbial respiratory cultur eOrdered By: Clive Sharp on 08-21-2024 Microorganism identified Cx Nom (Unsp spec) Enterobacter cloacae complex Abnormal [facility] Microorganism identified Cx Nom (Unsp spec) Meth. resistant Staph. aureus Abnormal [facility] Monocyte percentageOrdered B y: Terry Singh on 08-21-2024 Monocytes/100 WBC (Bld) 10.5 % High 0-[address] [facility] Mucus LM Ql (Urine sed)Order ed By: Terry Singh on 08-21-2024 Mucus Ql (Urine sed) 0 SEEN /hpf [facility] Nasal methicillin resistant Staphylococcus aureus (MRSA) DNA detection by PCROrdered By: Clive Sharp on 08-21-2024 MRSA DNA JUSTIN+probe Ql (Nose) Meth. resistant Staph. aureus Abnormal [facility] Natriuretic peptide.B prohor sena N-Terminal [Mass/volume] in Serum or PlasmaOrdered By: Terry Singh on 08-21-2024 Natriuretic peptide.B prohormone N-Terminal [Mass/Vol] 99938 pg/mL High <900 [facility] Neutrophil percentageOrdered By: Terry Singh on 08-21-2024 Neutrophils/100 WBC (Bld) 71.0 % High 47-70 [facility] Nitrite Test strip Ql (U)Ord ered By: Terry Singh on 08-21-2024 Nitrite Ql (U) Negative Negative [facility] [facility] No Panel InformationOrdered By: Terry Singh on 08-21-2024 ART [facility] L Radial [facility] Not entered [facility] BiPAP [facility] 14 [facility] 9 [facility] 1+ [facility] 29 U/L <38 [facility] Platelet countOrdered By: Dave Singh on 08-21-2024 Platelets (Bld) [#/Vol] 226 10*3/uL 150-450 [facility] Platelet estimateOrdered By: Terry Singh on 08-21-2024 Platelets LM Ql (Bld) A ADEQ [facility] Potassium measurement (mass/ volume)Ordered By: Terry Singh on 08-21-2024 Potassium (Unsp spec) [Mass/Vol] 4.5 mmol/L 3.3-5.1 [facility] Protein Test strip Ql (U)Ord ered By: Terry Singh on 08-21-2024 Protein Ql (U) 30 mg/dl High Negative [facility] Prothrombin timeOrdered By: Terry Singh on 08-21-2024 PT Coag (PPP) [Time] 14.1 s 11.7-14.9 [facility] RBC Auto (Bld) [#/Vol]Ordere d By: Terry Singh on 08-21-2024 RBC (Bld) [#/Vol] 2.83 10*6/uL Low 4.6-6.2 [facility] Serum creatinine measurement (mass/volume)Ordered By: Terry Singh on 08-21-2024 Creatinine [Mass/Vol] 1.27 mg/dL High 0.70-1.20 [facility] Serum globulin measurementOr dered By: Terry Singh on 08-21-2024 Globulin (S) [Mass/Vol] 2.7 g/dL 2.2-4.2 [facility] Serum glucose measurement (m ass/volume)Ordered By: Terry Singh on 08-21-2024 Glucose [Mass/Vol] 150 mg/dL High 70-99 [facility] Serum or plasma alanine barber otransferase (ALT) measurementOrdered By: Terry Singh on 08-21-2024 ALT [Catalytic activity/Vol] 19 U/L <47 [facility] Serum or plasma albumin yocasta urement (mass/volume)Ordered By: Terry Singh on 08-21-2024 Albumin [Mass/Vol] 3.5 g/dL 3.4-4.8 [facility] Serum or plasma albumin/glob ulin mass ratioOrdered By: Terry Singh on 08-21-2024 Albumin/Globulin [Mass ratio] 1.3 {ratio} 0.9-2.4 [facility] Serum or plasma alkaline justin sphatase measurementOrdered By: Terry Singh on 08-21-2024 ALP [Catalytic activity/Vol] 71 U/L 40-129 [facility] Serum or plasma calcium yocasta urement (mass/volume)Ordered By: Terry Singh on 08-21-2024 Calcium [Mass/Vol] 8.2 mg/dL 7.6-11.0 [facility] Serum or plasma urea nitroge n measurement (mass/volume)Ordered By: Terry Singh on 08-21-2024 Urea nitrogen [Mass/Vol] 21 mg/dL High 4-19 [facility] Sodium levelOrdered By: Inés Singh on 08-21-2024 Sodium [Moles/Vol] 145 mmol/L 133-145 [facility] Squamous epithelial cells de tection in urine sediment by light microscopyOrdered By: Terry Singh 08-21-2024 Epithelial cells.squamous LM Ql (Urine sed) 0-5 SEEN /hpf 0-5 [facility] Total carbon dioxide measure mentOrdered By: Terry Singh on 08-21-2024 CO2 [Moles/Vol] 42 mmol/L [facility] Total proteinOrdered By: Faustino Singh on 08-21-2024 Protein [Mass/Vol] 6.2 g/dL 5.9-8.4 [facility] Troponin T.cardiac [Mass/vol ume] in Serum or Plasma by High sensitivity methodOrdered By: Terry Singh on 08-21-2024 Troponin T.cardiac High sensitivity method [Mass/Vol] 95 ng/L Critically high <22 [facility] Troponin T.cardiac High sensitivity method [Mass/Vol] 103 ng/L Critically high <22 [facility] Troponin T.cardiac High sensitivity method [Mass/Vol] 97 ng/L Critically high <22 [facility] Urine clarityOrdered By: Faustino Singh on 08-21-2024 Clarity (U) Cloudy Clear [facility] Urine color determinationOrd ered By: Terry Singh on 08-21-2024 Color (U) Yellow Yellow [facility] Urine cultureOrdered By: Faustino Singh on 08-21-2024 Bacteria identified Cx Nom (U) Culture exhibits no growth. [facility] Urine glucose detectionOrder ed By: Terry Singh on 08-21-2024 Glucose Ql (U) 1000 mg/dl High Normal [facility] Urine leukocyte esterase det ection by dipstickOrdered By: Terry Singh on 08-21-2024 Leukocyte esterase Test strip Ql (U) 500 /ul High Negative [facility] Urine pHOrdered By: Terry lou on 08-21-2024 pH (U) 6.5 [pH] 5.0 - 8.0 [facility] Urine sediment bacteria coun t by microscopy (number/high power field)Ordered By: Terry Singh on 08-21-2024 Bacteria LM.HPF (Urine sed) [#/Area] 0 /[HPF] None Seen [facility] Urine specific gravity measu rementOrdered By: Terry Singh on 08-21-2024 Specific gravity (U) [Rel density] 1.010 1.002-1.030 [facility] Urine urobilinogen measureme ntOrdered By: Terry Singh on 08-21-2024 Urobilinogen Ql (U) Normal mg/dl Normal [facility] White blood cell (WBC) count Ordered By: Terry Singh on 08-21-2024 WBC (Bld) [#/Vol] 10.3 10*3/uL 4.4-11.0 [facility] White blood cell countOrdere d By: Terry Singh on 08-21-2024 White blood cell count >100 SEEN /hpf 0-5 [facility] Stool gastrointestinal hemog lobin detection by immunologic methodOrdered By: Tobi Zapata on 07-23-2024 Lower GI hemoglobin IA Ql (Stl) Positive Abnormal [facility] Anion gap in Serum or Plasma Ordered By: Wilberto Villafuerte on 07-21-2024 Anion gap [Moles/Vol] 7 mmol/L 5-15 [facility] BUN/creatinine ratioOrdered By: Wilberto Villafuerte on 07-21-2024 Urea nitrogen/Creatinine [Mass ratio] 25.7 mg/mg High 10-20 [facility] Carbon dioxide, total [Moles /volume] in Central venous bloodOrdered By: Wilberto Villafuerte on 07-21-2024 CO2 [Moles/Vol] 31.9 mmol/L 21.0-32.0 [facility] Chloride assayOrdered By: Anh Villafuerte on 07-21-2024 Chloride [Moles/Vol] 105 mmol/L 98-108 [facility] Erythrocyte distribution wid th ratioOrdered By: Wilberto Villafuerte on 07-21-2024 Erythrocyte distribution width (RBC) [Ratio] 20.5 % High 11.6-14.6 [facility] Erythrocyte distribution wid th standard deviationOrdered By: Wilberto Villafuerte on 07-21-2024 Erythrocyte distribution width (RBC) [Ratio] 75.2 fl High 35.1-43.9 [facility] Glomerular filtration rate ( GFR) estimation/1.73 sq m using serum, plasma, or whole bOrdered By: Wilberto Villafuerte on 07-21-2024 GFR/1.73 sq M.predicted among non-blacks MDRD (S/P/Bld) [Vol rate/Area] 59 mL/min/{1.73_m2} Low >60 [facility] Hematocrit Auto (Bld) [Volum e fraction]Ordered By: Wilberto Villafuerte on 07-21-2024 Hematocrit (Bld) [Volume fraction] 23.3 % Low 40-54 [facility] Hemoglobin measurementOrdere d By: Wilberto Villafuerte on 07-21-2024 Hemoglobin (Bld) [Mass/Vol] 7.0 g/dL Low 13.0-16.5 [facility] MCV (mean corpuscular volume ) determinationOrdered By: Wilberto Villafuerte on 07-21-2024 MCV (RBC) [Entitic vol] 100.9 fL High 80-[address] [facility] Mean corpuscular hemoglobin (MCH) determinationOrdered By: Wilberto Villafuerte on 07-21-2024 MCH (RBC) [Entitic mass] 30.3 pg 27.0-32.0 [facility] Platelet countOrdered By: Anh Villafuerte on 07-21-2024 Platelets (Bld) [#/Vol] 235 10*3/uL 150-450 [facility] Potassium measurement (mass/ volume)Ordered By: Wilberto Villafuerte on 07-21-2024 Potassium (Unsp spec) [Mass/Vol] 4.9 mmol/L 3.3-5.1 [facility] RBC Auto (Bld) [#/Vol]Ordere d By: Wilberto Villafuerte on 07-21-2024 RBC (Bld) [#/Vol] 2.31 10*6/uL Low 4.6-6.2 [facility] Serum creatinine measurement (mass/volume)Ordered By: Wilberto Villafuerte on 07-21-2024 Creatinine [Mass/Vol] 1.27 mg/dL High 0.70-1.20 [facility] Serum glucose measurement (m ass/volume)Ordered By: Wilberto Villafuerte on 07-21-2024 Glucose [Mass/Vol] 178 mg/dL High 70-99 [facility] Serum or plasma calcium yocasta urement (mass/volume)Ordered By: Wilberto Villafuerte on 07-21-2024 Calcium [Mass/Vol] 8.7 mg/dL 7.6-11.0 [facility] Serum or plasma urea nitroge n measurement (mass/volume)Ordered By: Wilberto Villafuerte on 07-21-2024 Urea nitrogen [Mass/Vol] 33 mg/dL High 4-19 [facility] Sodium levelOrdered By: Jacob Villafuerte on 07-21-2024 Sodium [Moles/Vol] 144 mmol/L 133-145 [facility] Trough vancomycin levelOrder ed By: Wilberto Villafuerte on 07-21-2024 Vancomycin trough [Mass/Vol] 16.3 ug/mL High 5.0-15.0 [facility] White blood cell (WBC) count Ordered By: Wilberto Villafuerte on 07-21-2024 WBC (Bld) [#/Vol] 8.4 10*3/uL 4.4-11.0 [facility] Anion gap in Serum or Plasma Ordered By: Martha Dodson on 07-20-2024 Anion gap [Moles/Vol] 9 mmol/L 5-15 [facility] BUN/creatinine ratioOrdered By: Martha Dodson on 07-20-2024 Urea nitrogen/Creatinine [Mass ratio] 22.9 mg/mg High 10-20 [facility] Bilirubin, totalOrdered By: Martha Dodson on 07-20-2024 Bilirubin [Mass/Vol] 0.31 mg/dL 0.00-1.30 [facility] Carbon dioxide, total [Moles /volume] in Central venous bloodOrdered By: Martha Dodson on 07-20-2024 CO2 [Moles/Vol] 30.8 mmol/L 21.0-32.0 [facility] Chloride assayOrdered By: Dave Dodson on 07-20-2024 Chloride [Moles/Vol] 104 mmol/L 98-108 [facility] Glomerular filtration rate ( GFR) estimation/1.73 sq m using serum, plasma, or whole bOrdered By: Martha Dodson on 07-20-2024 GFR/1.73 sq M.predicted among non-blacks MDRD (S/P/Bld) [Vol rate/Area] 50 mL/min/{1.73_m2} Low >60 [facility] Iron measurement (mass/mass) Ordered By: Martha Dodson on 07-20-2024 Iron (Unsp spec) [Mass/Mass] 37 ug/dL Low 65-175 [facility] No Panel InformationOrdered By: Martha Dodson on 07-20-2024 14 U/L <38 [facility] 183 ug/dL Low 228-428 [facility] Potassium measurement (mass/ volume)Ordered By: Martha Dodson on 07-20-2024 Potassium (Unsp spec) [Mass/Vol] 4.6 mmol/L 3.3-5.1 [facility] Serum creatinine measurement (mass/volume)Ordered By: Martha Dodson on 07-20-2024 Creatinine [Mass/Vol] 1.46 mg/dL High 0.70-1.20 [facility] Serum globulin measurementOr dered By: aMrtha Dodson on 07-20-2024 Globulin (S) [Mass/Vol] 2.3 g/dL 2.2-4.[address] [facility] Serum glucose measurement (m ass/volume)Ordered By: Martha Dodson on 07-20-2024 Glucose [Mass/Vol] 179 mg/dL High 70-99 [facility] Serum or plasma alanine barber otransferase (ALT) measurementOrdered By: Martha Dodson on 07-20-2024 ALT [Catalytic activity/Vol] 19 U/L <47 [facility] Serum or plasma albumin yocasta urement (mass/volume)Ordered By: Martha Dodson on 07-20-2024 Albumin [Mass/Vol] 3.7 g/dL 3.4-4.8 [facility] Serum or plasma albumin/glob ulin mass ratioOrdered By: Martha Dodson on 07-20-2024 Albumin/Globulin [Mass ratio] 1.6 {ratio} 0.9-2.4 [facility] Serum or plasma alkaline justin sphatase measurementOrdered By: Martha Dodson on 07-20-2024 ALP [Catalytic activity/Vol] 89 U/L 40-129 [facility] Serum or plasma calcium yocasta urement (mass/volume)Ordered By: Martha Dodson 07-20-2024 Calcium [Mass/Vol] 8.8 mg/dL 7.6-11.0 [facility] Serum or plasma ferritin vasquez surement (mass/volume)Ordered By: Martha Dodson 07-20-2024 Ferritin [Mass/Vol] 137 ng/mL 37-417 [facility] Serum or plasma iron saturat ion measurement (mass fraction)Ordered By: Martha Dodson 07-20-2024 Iron saturation [Mass fraction] 16.8 % 9-55 [facility] Serum or plasma urea nitroge n measurement (mass/volume)Ordered By: Martha Dodson on 07-20-2024 Urea nitrogen [Mass/Vol] 34 mg/dL High 4-19 [facility] Sodium levelOrdered By: Martha Dodson 07-20-2024 Sodium [Moles/Vol] 144 mmol/L 133-145 [facility] Total proteinOrdered By: Jayden Dodson on 07-20-2024 Protein [Mass/Vol] 6.0 g/dL 5.9-8.4 [facility] Anion gap in Serum or Plasma Ordered By: Wilberto Villafuerte on 07-14-2024 Anion gap [Moles/Vol] 10 mmol/L 5-15 [facility] BUN/creatinine ratioOrdered By: Wilberto Villafuerte on 07-14-2024 Urea nitrogen/Creatinine [Mass ratio] 28.0 mg/mg High 10-20 [facility] Carbon dioxide, total [Moles /volume] in Central venous bloodOrdered By: Wilberto Villafuerte on 07-14-2024 CO2 [Moles/Vol] 29.3 mmol/L 21.0-32.0 [facility] Chloride assayOrdered By: Anh Villafuerte on 07-14-2024 Chloride [Moles/Vol] 104 mmol/L 98-108 [facility] Glomerular filtration rate ( GFR) estimation/1.73 sq m using serum, plasma, or whole bOrdered By: Wilberto Villafuerte on 07-14-2024 GFR/1.73 sq M.predicted among non-blacks MDRD (S/P/Bld) [Vol rate/Area] 43 mL/min/{1.73_m2} Low >60 [facility] Potassium measurement (mass/ volume)Ordered By: Wilberto Villafuerte on 07-14-2024 Potassium (Unsp spec) [Mass/Vol] 5.1 mmol/L 3.3-5.1 [facility] Serum creatinine measurement (mass/volume)Ordered By: Wilberto Villafuerte on 07-14-2024 Creatinine [Mass/Vol] 1.65 mg/dL High 0.70-1.20 [facility] Serum glucose measurement (m ass/volume)Ordered By: Wilberto Villafuerte on 07-14-2024 Glucose [Mass/Vol] 135 mg/dL High 70-99 [facility] Serum or plasma calcium yocasta urement (mass/volume)Ordered By: Wilberto Villafuerte on 07-14-2024 Calcium [Mass/Vol] 8.6 mg/dL 7.6-11.0 [facility] Serum or plasma urea nitroge n measurement (mass/volume)Ordered By: Wilberto Villafuerte on 07-14-2024 Urea nitrogen [Mass/Vol] 46 mg/dL High 4- [facility] Sodium levelOrdered By: Jacob Villafuerte on 07-14-2024 Sodium [Moles/Vol] 143 mmol/L 133-145 [facility] Trough vancomycin levelOrder ed By: Wilberto Villafuerte on 07-14-2024 Vancomycin trough [Mass/Vol] 21.5 ug/mL High 5.0-15.0 [facility] Anion gap in Serum or Plasma Ordered By: GERA Naik on 07-12-2024 Anion gap [Moles/Vol] 9 mmol/L 5-15 [facility] BUN/creatinine ratioOrdered By: GERA Naik on 07-12-2024 Urea nitrogen/Creatinine [Mass ratio] 27.1 mg/mg High 10-20 [facility] Blood manual differential co mment interpretation (narrative result)Ordered By: GERA Naik on 07-12-2024 Manual differential comment Sohan (Bld) [Interp] See comment [facility] Carbon dioxide, total [Moles /volume] in Central venous bloodOrdered By: GERA Naik on 07-12-2024 CO2 [Moles/Vol] 29.3 mmol/L 21.0-32.0 [facility] Chloride assayOrdered By: GERA Naik on 07-12-2024 Chloride [Moles/Vol] 105 mmol/L 98-108 [facility] Erythrocyte distribution wid th ratioOrdered By: GERA Naik on 07-12-2024 Erythrocyte distribution width (RBC) [Ratio] 19.7 % High 11.6-14.6 [facility] Erythrocyte distribution wid th standard deviationOrdered By: GERA Naik on 07-12-2024 Erythrocyte distribution width (RBC) [Ratio] 69.9 fl High 35.1-43.9 [facility] Glomerular filtration rate ( GFR) estimation/1.73 sq m using serum, plasma, or whole bOrdered By: GERA Naik on 07-12-2024 GFR/1.73 sq M.predicted among non-blacks MDRD (S/P/Bld) [Vol rate/Area] 52 mL/min/{1.73_m2} Low >60 [facility] Hematocrit Auto (Bld) [Volum e fraction]Ordered By: GERA Naik on 07-12-2024 Hematocrit (Bld) [Volume fraction] 24.5 % Low 40-54 [facility] Hemoglobin measurementOrdere d By: GERA Naik on 07-12-2024 Hemoglobin (Bld) [Mass/Vol] 7.4 g/dL Low 13.0-16.5 [facility] MCV (mean corpuscular volume ) determinationOrdered By: GERA Naik on 07-12-2024 MCV (RBC) [Entitic vol] 97.6 fL High 80-[address] [facility] Mean corpuscular hemoglobin (MCH) determinationOrdered By: GERA Naik on 07-12-2024 MCH (RBC) [Entitic mass] 29.5 pg 27.0-32.0 [facility] Platelet countOrdered By: GERA Naik on 07-12-2024 Platelets (Bld) [#/Vol] 199 10*3/uL 150-450 [facility] Potassium measurement (mass/ volume)Ordered By: GERA Naik on 07-12-2024 Potassium (Unsp spec) [Mass/Vol] 5.3 mmol/L High 3.3-5.1 [facility] RBC Auto (Bld) [#/Vol]Ordere d By: GERA Naik on 07-12-2024 RBC (Bld) [#/Vol] 2.51 10*6/uL Low 4.6-6.2 [facility] Serum creatinine measurement (mass/volume)Ordered By: GERA Naik on 07-12-2024 Creatinine [Mass/Vol] 1.41 mg/dL High 0.70-1.20 [facility] Serum glucose measurement (m ass/volume)Ordered By: GERA Naik on 07-12-2024 Glucose [Mass/Vol] 363 mg/dL High 70-99 [facility] Serum or plasma calcium yocasta urement (mass/volume)Ordered By: GERA Naik on 07-12-2024 Calcium [Mass/Vol] 8.8 mg/dL 7.6-11.0 [facility] Serum or plasma urea nitroge n measurement (mass/volume)Ordered By: GERA Naik on 07-12-2024 Urea nitrogen [Mass/Vol] 38 mg/dL High 4-19 [facility] Sodium levelOrdered By: GERA Powell vi Gumaro on 07-12-2024 Sodium [Moles/Vol] 144 mmol/L 133-145 [facility] Trough vancomycin levelOrder ed By: GERA Naik on 07-12-2024 Vancomycin trough [Mass/Vol] 27.7 ug/mL High 5.0-15.0 [facility] White blood cell (WBC) count Ordered By: GERA Naik on 07-12-2024 WBC (Bld) [#/Vol] 7.2 10*3/uL 4.4-11.0 [facility] Absolute lymphocyte countOrd ered By: Marco Hoffman on 07-08-2024 Lymphocytes Auto (Unsp spec) [#/Vol] 1.34 10*3/uL 0.83-4.51 [facility] Activated partial thrombopla stin time (aPTT) in platelet poor plasma by coagulation aOrdered By: Marco Hoffman on 07-08-2024 aPTT Coag (PPP) [Time] 31.3 s 24.1-36.2 [facility] Anion gap in Serum or Plasma Ordered By: Marco Hoffman on 07-08-2024 Anion gap [Moles/Vol] 11 mmol/L 5-15 [facility] Automated lymphocyte count a s percentage of total leukocytesOrdered By: Marco Hoffman on 07-08-2024 Lymphocytes/100 WBC Auto (Unsp spec) 15.2 % Low 19-41 [facility] BUN/creatinine ratioOrdered By: Marco Hoffman on 07-08-2024 Urea nitrogen/Creatinine [Mass ratio] 30.5 mg/mg High 10-20 [facility] Basophil percentageOrdered B y: Marco Hoffman on 07-08-2024 Basophils/100 WBC (Bld) 0.2 % 0-[address] [facility] Bilirubin Test strip Ql (U)O rdered By: Marco Hoffman on 07-08-2024 Bilirubin Ql (U) Negative Negative [facility] Bilirubin, totalOrdered By: Marco Hoffman on 07-08-2024 Bilirubin [Mass/Vol] 0.35 mg/dL 0.00-1.30 [facility] Blood cultureOrdered By: Jasmine Hoffman on 07-08-2024 Bacteria identified Cx Nom (Bld) No growth in 5 days. [facility] Bacteria identified Cx Nom (Bld) No growth in 5 days. [facility] Carbon dioxide, total [Moles /volume] in Central venous bloodOrdered By: Marco Hoffman on 07-08-2024 CO2 [Moles/Vol] 27.6 mmol/L 21.0-32.0 [facility] Chloride assayOrdered By: Stephanie Hoffman on 07-08-2024 Chloride [Moles/Vol] 106 mmol/L 98-108 [facility] Eosinophil percentageOrdered By: Marco Hoffman on 07-08-2024 Eosinophils/100 WBC (Bld) 2.0 % 0-5 [facility] Erythrocyte distribution wid th ratioOrdered By: Marco Hoffman on 07-08-2024 Erythrocyte distribution width (RBC) [Ratio] 20.1 % High 11.6-14.6 [facility] Erythrocyte distribution wid th standard deviationOrdered By: Marco Hoffman on 07-08-2024 Erythrocyte distribution width (RBC) [Ratio] 70.7 fl High 35.1-43.9 [facility] Glomerular filtration rate ( GFR) estimation/1.73 sq m using serum, plasma, or whole bOrdered By: Marco Hoffman on 07-08-2024 GFR/1.73 sq M.predicted among non-blacks MDRD (S/P/Bld) [Vol rate/Area] 59 mL/min/{1.73_m2} Low >60 [facility] Hematocrit Auto (Bld) [Volum e fraction]Ordered By: Marco Hoffman on 07-08-2024 Hematocrit (Bld) [Volume fraction] 23.2 % Low 40-54 [facility] Hemoglobin measurementOrdere d By: Marco Hoffman on 07-08-2024 Hemoglobin (Bld) [Mass/Vol] 7.2 g/dL Low 13.0-16.5 [facility] Immature granulocytes/100 WB C Auto (Bld)Ordered By: Marco Hoffman on 07-08-2024 Immature granulocytes/100 WBC (Bld) 1.500 % High 0.0-0.9 [facility] Ketones Test strip Ql (U)Ord ered By: Marco Hoffman on 07-08-2024 Ketones Ql (U) Negative Negative [facility] MCV (mean corpuscular volume ) determinationOrdered By: Marco Hoffman on 07-08-2024 MCV (RBC) [Entitic vol] 95.5 fL High 80-[address] [facility] Mean corpuscular hemoglobin (MCH) determinationOrdered By: Marco Hoffman on 07-08-2024 MCH (RBC) [Entitic mass] 29.6 pg 27.0-32.0 [facility] Monocyte percentageOrdered B y: Marco Hoffman on 07-08-2024 Monocytes/100 WBC (Bld) 9.4 % 0-[address] [facility] Mucus LM Ql (Urine sed)Order ed By: Marco Hoffman on 07-08-2024 Mucus Ql (Urine sed) 0 SEEN /hpf [facility] Neutrophil percentageOrdered By: Marco Hoffman on 07-08-2024 Neutrophils/100 WBC (Bld) 71.7 % High 47-70 [facility] Nitrite Test strip Ql (U)Ord ered By: Marco Hoffman on 07-08-2024 Nitrite Ql (U) Negative Negative [facility] No Panel InformationOrdered By: Marco Hoffman on 07-08-2024 23 U/L <38 [facility] 2+ [facility] Platelet countOrdered By: Stephanie Hoffman on 07-08-2024 Platelets (Bld) [#/Vol] 162 10*3/uL 150-450 [facility] Potassium measurement (mass/ volume)Ordered By: Marco Hoffman on 07-08-2024 Potassium (Unsp spec) [Mass/Vol] 3.8 mmol/L 3.3-5.1 [facility] Protein Test strip Ql (U)Ord ered By: Marco Hoffman on 07-08-2024 Protein Ql (U) 30 mg/dl High Negative [facility] Prothrombin timeOrdered By: Marco Hoffman on 07-08-2024 PT Coag (PPP) [Time] 14.2 s 11.7-14.9 [facility] RBC Auto (Bld) [#/Vol]Ordere d By: Marco Hoffman on 07-08-2024 RBC (Bld) [#/Vol] 2.43 10*6/uL Low 4.6-6.2 [facility] Serum creatinine measurement (mass/volume)Ordered By: Marco Hoffman on 07-08-2024 Creatinine [Mass/Vol] 1.28 mg/dL High 0.70-1.20 [facility] Serum globulin measurementOr dered By: Marco Hoffman on 07-08-2024 Globulin (S) [Mass/Vol] 2.7 g/dL 2.2-4.[address] [facility] Serum glucose measurement (m ass/volume)Ordered By: Marco Hoffman on 07-08-2024 Glucose [Mass/Vol] 164 mg/dL High 70-99 [facility] Serum or plasma alanine barber otransferase (ALT) measurementOrdered By: Marco Hoffman on 07-08-2024 ALT [Catalytic activity/Vol] 38 U/L <47 [facility] Serum or plasma albumin yocasta urement (mass/volume)Ordered By: Marco Hoffman on 07-08-2024 Albumin [Mass/Vol] 3.4 g/dL 3.4-4.8 [facility] Serum or plasma albumin/glob ulin mass ratioOrdered By: Marco Hoffman 07-08-2024 Albumin/Globulin [Mass ratio] 1.3 {ratio} 0.9-2.4 [facility] Serum or plasma alkaline justin sphatase measurementOrdered By: Marco Hoffman 07-08-2024 ALP [Catalytic activity/Vol] 122 U/L 40-129 [facility] Serum or plasma calcium yocasta urement (mass/volume)Ordered By: Marco Hoffman 07-08-2024 Calcium [Mass/Vol] 8.5 mg/dL 7.6-11.0 [facility] Serum or plasma urea nitroge n measurement (mass/volume)Ordered By: Marco Hoffman on 07-08-2024 Urea nitrogen [Mass/Vol] 39 mg/dL High 4-19 [facility] Sodium levelOrdered By: Marco Hoffman on 07-08-2024 Sodium [Moles/Vol] 144 mmol/L 133-145 [facility] Squamous epithelial cells de tection in urine sediment by light microscopyOrdered By: Marco Hoffman on 07-08-2024 Epithelial cells.squamous LM Ql (Urine sed) 0-5 SEEN /hpf 0-5 [facility] Total proteinOrdered By: Jasmine Hoffman on 07-08-2024 Protein [Mass/Vol] 6.1 g/dL 5.9-8.4 [facility] Urine clarityOrdered By: Jasmine Hoffman on 07-08-2024 Clarity (U) Sl. Cloudy Clear [facility] Urine color determinationOrd ered By: Marco Hoffman on 07-08-2024 Color (U) Yellow Yellow [facility] Urine glucose detectionOrder ed By: Marco Hoffman on 07-08-2024 Glucose Ql (U) 1000 mg/dl High Normal [facility] Urine leukocyte esterase det ection by dipstickOrdered By: Marco Hoffman on 07-08-2024 Leukocyte esterase Test strip Ql (U) 500 /ul High Negative [facility] Urine pHOrdered By: Marco campos on 07-08-2024 pH (U) 6.0 [pH] 5.0 - 8.0 [facility] Urine sediment bacteria coun t by microscopy (number/high power field)Ordered By: Marco Hoffman on 07-08-2024 Bacteria LM.HPF (Urine sed) [#/Area] 1 /[HPF] None Seen [facility] Urine sediment yeast count b y microscopy (number/high powered field)Ordered By: Marco Hoffman on 07-08-2024 Yeast LM.HPF (Urine sed) [#/Area] 2 /[HPF] None Seen [facility] Urine specific gravity measu rementOrdered By: Marco Hoffman on 07-08-2024 Specific gravity (U) [Rel density] 1.015 1.002-1.030 [facility] Urine urobilinogen measureme ntOrdered By: Marco Hoffman on 07-08-2024 Urobilinogen Ql (U) Normal mg/dl Normal [facility] White blood cell (WBC) count Ordered By: Marco Hoffman on 07-08-2024 WBC (Bld) [#/Vol] 8.8 10*3/uL 4.4-11.0 [facility] White blood cell countOrdere d By: Marco Hoffman on 07-08-2024 White blood cell count 25-50 SEEN /hpf 0-5 [facility] Anion gap in Serum or Plasma Ordered By: Wilberto Villafuerte on 07-05-2024 Anion gap [Moles/Vol] 10 mmol/L 5-15 [facility] BUN/creatinine ratioOrdered By: Wilberto Villafuerte on 07-05-2024 Urea nitrogen/Creatinine [Mass ratio] 27.0 mg/mg High 10-20 [facility] Blood manual differential co mment interpretation (narrative result)Ordered By: Wilberto Villafuerte on 07-05-2024 Manual differential comment Sohan (Bld) [Interp] See comment [facility] Carbon dioxide, total [Moles /volume] in Central venous bloodOrdered By: Wilberto Villafuerte on 07-05-2024 CO2 [Moles/Vol] 29.6 mmol/L 21.0-32.0 [facility] Chloride assayOrdered By: Anh Villafuerte on 07-05-2024 Chloride [Moles/Vol] 107 mmol/L 98-108 [facility] Erythrocyte distribution wid th ratioOrdered By: Wilberto Villafuerte on 07-05-2024 Erythrocyte distribution width (RBC) [Ratio] 21.1 % High 11.6-14.6 [facility] Erythrocyte distribution wid th standard deviationOrdered By: Wilberto Villafuerte on 07-05-2024 Erythrocyte distribution width (RBC) [Ratio] 75.3 fl High 35.1-43.9 [facility] Glomerular filtration rate ( GFR) estimation/1.73 sq m using serum, plasma, or whole bOrdered By: Wilberto Villafuerte on 07-05-2024 GFR/1.73 sq M.predicted among non-blacks MDRD (S/P/Bld) [Vol rate/Area] 58 mL/min/{1.73_m2} Low >60 [facility] Hematocrit Auto (Bld) [Volum e fraction]Ordered By: Wilberto Villafuerte on 07-05-2024 Hematocrit (Bld) [Volume fraction] 28.2 % Low 40-54 [facility] Hemoglobin measurementOrdere d By: Wilberto Villafuerte on 07-05-2024 Hemoglobin (Bld) [Mass/Vol] 8.4 g/dL Low 13.0-16.5 [facility] MCV (mean corpuscular volume ) determinationOrdered By: Wilberto Villafuerte on 07-05-2024 MCV (RBC) [Entitic vol] 97.6 fL High 80-[address] [facility] Mean corpuscular hemoglobin (MCH) determinationOrdered By: Wilberto Villafuerte on 07-05-2024 MCH (RBC) [Entitic mass] 29.1 pg 27.0-32.0 [facility] Platelet countOrdered By: Anh Villafuerte on 07-05-2024 Platelets (Bld) [#/Vol] 263 10*3/uL 150-450 [facility] Potassium measurement (mass/ volume)Ordered By: Wilberto Villafuerte on 07-05-2024 Potassium (Unsp spec) [Mass/Vol] 4.5 mmol/L 3.3-5.1 [facility] RBC Auto (Bld) [#/Vol]Ordere d By: Wilberto Villafuerte on 07-05-2024 RBC (Bld) [#/Vol] 2.89 10*6/uL Low 4.6-6.2 [facility] Serum creatinine measurement (mass/volume)Ordered By: Wilberto Villafuerte on 07-05-2024 Creatinine [Mass/Vol] 1.29 mg/dL High 0.70-1.20 [facility] Serum glucose measurement (m ass/volume)Ordered By: Wilberto Villafuerte on 07-05-2024 Glucose [Mass/Vol] 158 mg/dL High 70-99 [facility] Serum or plasma calcium yocasta urement (mass/volume)Ordered By: Wilberto Villafuerte on 07-05-2024 Calcium [Mass/Vol] 8.8 mg/dL 7.6-11.0 [facility] Serum or plasma urea nitroge n measurement (mass/volume)Ordered By: Wilberto Villafuerte on 07-05-2024 Urea nitrogen [Mass/Vol] 35 mg/dL High 4-19 [facility] Sodium levelOrdered By: Jacob Villafuerte on 07-05-2024 Sodium [Moles/Vol] 146 mmol/L High 133-145 [facility] Trough vancomycin levelOrder ed By: Wilberto Villafuerte on 07-05-2024 Vancomycin trough [Mass/Vol] 20.4 ug/mL High 5.0-15.0 [facility] White blood cell (WBC) count Ordered By: Wilberto Villafuerte on 07-05-2024 WBC (Bld) [#/Vol] 11.6 10*3/uL High 4.4-11.0 [facility] Anion gap [Moles/Vol]Ordered By: Wilberto Villafuerte on 06-28-2024 Anion gap in Serum or Plasma 8 5-15 [facility] Anion gap in Serum or Plasma Ordered By: Wilberto Villafuerte on 06-28-2024 Anion gap [Moles/Vol] 8 mmol/L 5-15 [facility] BUN/creatinine ratioOrdered By: Wilberto Villafuerte on 06-28-2024 Urea nitrogen/Creatinine [Mass ratio] 33.7 mg/mg High 10-20 [facility] BUN/creatinine ratio 33.7 RATIO High 10-20 [facility] Blood manual differential co mment interpretation (narrative result)Ordered By: Wilberto Villafuerte on 06-28-2024 Manual differential comment Sohan (Bld) [Interp] See comment [facility] Calcium [Mass/Vol]Ordered By : Wilberto Villafuerte on 06-28-2024 Serum or plasma calcium measurement (mass/volume) 8.8 mg/dL 7.6-11.0 [facility] Carbon dioxide, total [Moles /volume] in Central venous bloodOrdered By: Wilberto Villafuerte on 06-28-2024 CO2 [Moles/Vol] 30.4 mmol/L 21.0-32.0 [facility] Carbon dioxide, total [Moles/volume] in Central venous blood 30.4 mmol/L 21.0-32.0 [facility] Chloride assayOrdered By: Anh Villafuerte on 06-28-2024 Chloride [Moles/Vol] 108 mmol/L 98-108 [facility] Chloride assay 108 mmol/L 98-108 [facility] Creatinine [Mass/Vol]Ordered By: Wilberto Villafuerte on 06-28-2024 Serum creatinine measurement (mass/volume) 1.14 mg/dL 0.70-1.20 [facility] Erythrocyte distribution wid th (RBC) [Ratio]Ordered By: Wilberto Villafuerte on 06-28-2024 Erythrocyte distribution width ratio 20.7 % High 11.6-14.6 [facility] Erythrocyte distribution width standard deviation 71.3 fl High 35.1-43.9 [facility] Erythrocyte distribution wid th ratioOrdered By: Wilberto Villafuerte on 06-28-2024 Erythrocyte distribution width (RBC) [Ratio] 20.7 % High 11.6-14.6 [facility] Erythrocyte distribution wid th standard deviationOrdered By: Wilberto Villafuerte on 06-28-2024 Erythrocyte distribution width (RBC) [Ratio] 71.3 fl High 35.1-43.9 [facility] GFR/1.73 sq M.predicted idania g non-blacks MDRD (S/P/Bld) [Vol rate/Area]Ordered By: Wilberto Villafuerte on 06-28-2024 Glomerular filtration rate (GFR) estimation/1.73 sq m using serum, plasma, or whole b 67 >60 [facility] Glomerular filtration rate ( GFR) estimation/1.73 sq m using serum, plasma, or whole bOrdered By: Wilberto Villafuerte on 06-28-2024 GFR/1.73 sq M.predicted among non-blacks MDRD (S/P/Bld) [Vol rate/Area] 67 mL/min/{1.73_m2} >60 [facility] Glucose [Mass/Vol]Ordered By : Wilberto Villafuerte on 06-28-2024 Serum glucose measurement (mass/volume) 112 mg/dL High 70-99 [facility] Hematocrit Auto (Bld) [Volum e fraction]Ordered By: Wilberto Villafuerte on 06-28-2024 Hematocrit (Bld) [Volume fraction] 28.7 % Low 40-54 [facility] Automated blood hematocrit (percentage) 28.7 % Low 40-54 [facility] Hemoglobin measurementOrdere d By: Wilberto Villafuerte on 06-28-2024 Hemoglobin (Bld) [Mass/Vol] 8.8 g/dL Low 13.0-16.5 [facility] Hemoglobin measurement 8.8 g/dL Low 13.0-16.5 [facility] MCV (RBC) [Entitic vol]Order ed By: Wilberto Villafuerte on 06-28-2024 MCV (mean corpuscular volume) determination 94.7 fL High 80-94 [facility] MCV (mean corpuscular volume ) determinationOrdered By: Wilberto Villafuerte on 06-28-2024 MCV (RBC) [Entitic vol] 94.7 fL High 80-[address] [facility] Manual differential comment Sohan (Bld) [Interp]Ordered By: Wilberto Villafuerte on 06-28-2024 Blood manual differential comment interpretation (narrative result) See comment [facility] Mean corpuscular hemoglobin (MCH) determinationOrdered By: Wilberto Villafuerte on 06-28-2024 MCH (RBC) [Entitic mass] 29.0 pg 27.0-32.0 [facility] Mean corpuscular hemoglobin (MCH) determination 29.0 pg 27.0-32.0 [facility] Mean corpuscular hemoglobin concentration (MCHC) determinationOrdered By: Wilberto Villafuerte on 06-28-2024 Mean corpuscular hemoglobin concentration (MCHC) determination 30.7 g/dL Low 32-36 [facility] Mean platelet volume determi nationOrdered By: Wilberto Villafuerte on 06-28-2024 Mean platelet volume determination 11.6 fl 6.2-12.0 [facility] Platelet countOrdered By: Anh Villafuerte on 06-28-2024 Platelets (Bld) [#/Vol] 309 10*3/uL 150-450 [facility] Platelet count 309 K/mm3 150-450 [facility] Potassium (Unsp spec) [Mass/ Vol]Ordered By: Wilberto Villafuerte on 06-28-2024 Potassium measurement (mass/volume) 4.2 mmol/L 3.3-5.1 [facility] Potassium measurement (mass/ volume)Ordered By: Wilberto Villafuerte on 06-28-2024 Potassium (Unsp spec) [Mass/Vol] 4.2 mmol/L 3.3-5.1 [facility] RBC Auto (Bld) [#/Vol]Ordere d By: Wilberto Villafuerte on 06-28-2024 RBC (Bld) [#/Vol] 3.03 10*6/uL Low 4.6-6.2 [facility] Automated blood erythrocyte count 3.03 M/mm3 Low 4.6-6.2 [facility] Serum creatinine measurement (mass/volume)Ordered By: Wilberto Villafuerte on 06-28-2024 Creatinine [Mass/Vol] 1.14 mg/dL 0.70-1.20 [facility] Serum glucose measurement (m ass/volume)Ordered By: Wilberto Villafuerte on 06-28-2024 Glucose [Mass/Vol] 112 mg/dL High 70-99 [facility] Serum or plasma calcium yocasta urement (mass/volume)Ordered By: Wilberto Villafuerte on 06-28-2024 Calcium [Mass/Vol] 8.8 mg/dL 7.6-11.0 [facility] Serum or plasma urea nitroge n measurement (mass/volume)Ordered By: Wilberto Villafuerte on 06-28-2024 Urea nitrogen [Mass/Vol] 38 mg/dL High 4-19 [facility] Sodium levelOrdered By: Jacob Villafuerte on 06-28-2024 Sodium [Moles/Vol] 146 mmol/L High 133-145 [facility] Sodium level 146 mmol/L High 133-145 [facility] Trough vancomycin levelOrder ed By: Wilberto Villafuerte on 06-28-2024 Vancomycin trough [Mass/Vol] 18.5 ug/mL High 5.0-15.0 [facility] Urea nitrogen [Mass/Vol]Orde red By: Wilberto Villafuerte on 06-28-2024 Serum or plasma urea nitrogen measurement (mass/volume) 38 mg/dL High -19 [facility] Vancomycin trough [Mass/Vol] Ordered By: Wilberto Villafuerte on 06-28-2024 Trough vancomycin level 18.5 ug/mL High 5.0-15.0 [facility] White blood cell (WBC) count Ordered By: Wilberto Villafuerte on 06-28-2024 WBC (Bld) [#/Vol] 15.6 10*3/uL High 4.4-11.0 [facility] White blood cell (WBC) count 15.6 K/mm3 High 4.4-11.0 [facility] Absolute lymphocyte countOrd ered By: Jordan Ortiz on 06-25-2024 Lymphocytes Auto (Unsp spec) [#/Vol] 0.88 10*3/uL 0.83-4.51 [facility] Absolute neutrophil countOrd ered By: Jordan Ortiz on 06-25-2024 Absolute neutrophil count 5.5 X10^3/uL 2.0-7.7 [facility] Anion gap [Moles/Vol]Ordered By: Jordan Ortiz on 06-25-2024 Anion gap in Serum or Plasma 8 5-15 [facility] Anion gap in Serum or Plasma Ordered By: Jordan Ortiz on 06-25-2024 Anion gap [Moles/Vol] 8 mmol/L 5-15 [facility] Automated lymphocyte count a s percentage of total leukocytesOrdered By: Jordan Ortiz on 06-25-2024 Lymphocytes/100 WBC Auto (Unsp spec) 12.3 % Low 19-41 [facility] BUN/creatinine ratioOrdered By: Jordan Ortiz on 06-25-2024 Urea nitrogen/Creatinine [Mass ratio] 41.4 mg/mg High 10-20 [facility] BUN/creatinine ratio 41.4 RATIO High 10-20 [facility] Basophil percentageOrdered B y: Jordan Ortiz on 06-25-2024 Basophils/100 WBC (Bld) 0.0 % 0-1 [facility] Basophil percentage 0.0 % 0-1 [facility] Blood manual differential co mment interpretation (narrative result)Ordered By: Jordan Ortiz on 06-25-2024 Manual differential comment Sohan (Bld) [Interp] SCANNED [facility] Calcium [Mass/Vol]Ordered By : Jordan Ortiz on 06-25-2024 Serum or plasma calcium measurement (mass/volume) 8.6 mg/dL 7.6-11.0 [facility] Carbon dioxide, total [Moles /volume] in Central venous bloodOrdered By: Jordan Ortiz on 06-25-2024 CO2 [Moles/Vol] 27.1 mmol/L 21.0-32.0 [facility] Carbon dioxide, total [Moles/volume] in Central venous blood 27.1 mmol/L 21.0-32.0 [facility] Chloride assayOrdered By: Nixon Ortiz on 05-02-2025 Chloride [Moles/Vol] 103 mmol/L 98-108 [facility] Chloride assay 103 mmol/L 98-108 [facility] Creatinine [Mass/Vol]Ordered By: Jordan Ortiz on 06-25-2024 Serum creatinine measurement (mass/volume) 1.12 mg/dL 0.70-1.20 [facility] Eosinophil percentageOrdered By: Jordan Ortiz on 06-25-2024 Eosinophils/100 WBC (Bld) 0.3 % 0-5 [facility] Eosinophil percentage 0.3 % 0-5 [facility] Erythrocyte distribution wid th (RBC) [Ratio]Ordered By: Jordan Ortiz on 06-25-2024 Erythrocyte distribution width ratio 20.3 % High 11.6-14.6 [facility] Erythrocyte distribution width standard deviation 69.2 fl High 35.1-43.9 [facility] Erythrocyte distribution wid th ratioOrdered By: Jordan Ortiz on 06-25-2024 Erythrocyte distribution width (RBC) [Ratio] 20.3 % High 11.6-14.6 [facility] Erythrocyte distribution wid th standard deviationOrdered By: Jordan Ortiz on 06-25-2024 Erythrocyte distribution width (RBC) [Ratio] 69.2 fl High 35.1-43.9 [facility] Estimation of creatinine montez aranceOrdered By: Jordan Ortiz on 06-25-2024 Estimation of creatinine clearance 69.29 ml/min 50-250 [facility] GFR/1.73 sq M.predicted idania g non-blacks MDRD (S/P/Bld) [Vol rate/Area]Ordered By: Jordan Ortiz on 06-25-2024 Glomerular filtration rate (GFR) estimation/1.73 sq m using serum, plasma, or whole b 69 >60 [facility] Glomerular filtration rate ( GFR) estimation/1.73 sq m using serum, plasma, or whole bOrdered By: Jordan Ortiz on 06-25-2024 GFR/1.73 sq M.predicted among non-blacks MDRD (S/P/Bld) [Vol rate/Area] 69 mL/min/{1.73_m2} >60 [facility] Glucose [Mass/Vol]Ordered By : Joradn Ortiz on 06-25-2024 Serum glucose measurement (mass/volume) 241 mg/dL High 70-99 [facility] Glucose measurement at bedsi deOrdered By: Jordan Ortiz on 06-25-2024 Glucose [Mass/Vol] 147 mg/dL High 74-106 [facility] Glucose measurement at bedside 147 mg/dL High 74-106 [facility] Hematocrit Auto (Bld) [Volum e fraction]Ordered By: Jordan Ortiz on 06-25-2024 Hematocrit (Bld) [Volume fraction] 24.7 % Low 40-54 [facility] Automated blood hematocrit (percentage) 24.7 % Low 40-54 [facility] Hemoglobin measurementOrdere d By: Jordan Ortiz on 06-25-2024 Hemoglobin (Bld) [Mass/Vol] 7.7 g/dL Low 13.0-16.5 [facility] Hemoglobin measurement 7.7 g/dL Low 13.0-16.5 [facility] Immature granulocytes/100 WB C Auto (Bld)Ordered By: Jordan Ortiz on 06-25-2024 Immature granulocytes/100 WBC (Bld) 1.500 % High 0.0-0.9 [facility] Automated immature granulocyte percentage 1.500 % High 0.0-0.9 [facility] Lymphocytes Auto (Unsp spec) [#/Vol]Ordered By: Jordan Ortiz on 06-25-2024 Absolute lymphocyte count 0.88 X10^3/uL 0.83-4.51 [facility] Lymphocytes/100 WBC Auto (Un sp spec)Ordered By: Jordan Ortiz on 06-25-2024 Automated lymphocyte count as percentage of total leukocytes 12.3 % Low 19-41 [facility] MCV (RBC) [Entitic vol]Order ed By: Jordan Ortiz on 06-25-2024 MCV (mean corpuscular volume) determination 92.2 fL 80-94 [facility] MCV (mean corpuscular volume ) determinationOrdered By: Jordan Ortiz on 06-25-2024 MCV (RBC) [Entitic vol] 92.2 fL 80-[address] [facility] Magnesium (Unsp spec) [Mass/ Vol]Ordered By: Janice Mackey on 06-25-2024 Magnesium measurement (mass/volume) 2.0 mg/dL 1.5-2.2 [facility] Magnesium measurement (mass/ volume)Ordered By: Janice Mackey on 06-25-2024 Magnesium (Unsp spec) [Mass/Vol] 2.0 mg/dL 1.5-2.2 [facility] Manual differential comment Sohan (Bld) [Interp]Ordered By: Jordan Ortiz on 06-25-2024 Blood manual differential comment interpretation (narrative result) SCANNED [facility] Mean corpuscular hemoglobin (MCH) determinationOrdered By: Jordan Ortiz on 06-25-2024 MCH (RBC) [Entitic mass] 28.7 pg 27.0-32.0 [facility] Mean corpuscular hemoglobin (MCH) determination 28.7 pg 27.0-32.0 [facility] Mean corpuscular hemoglobin concentration (MCHC) determinationOrdered By: Jordan Ortiz on 06-25-2024 Mean corpuscular hemoglobin concentration (MCHC) determination 31.2 g/dL Low 32-36 [facility] Mean platelet volume determi nationOrdered By: Jordan Ortiz on 06-25-2024 Mean platelet volume determination 11.0 fl 6.2-12.0 [facility] Monocyte percentageOrdered B y: Jordan Ortiz on 06-25-2024 Monocytes/100 WBC (Bld) 8.5 % 0-[address] [facility] Monocyte percentage 8.5 % 0-10 [facility] Neutrophil percentageOrdered By: Jordan Ortiz on 06-25-2024 Neutrophils/100 WBC (Bld) 77.4 % High 47-70 [facility] Neutrophil percentage 77.4 % High 47-70 [facility] No Panel InformationOrdered By: Jordan Ortiz on 06-25-2024 2+ [facility] Nucleated red blood cell per centageOrdered By: Jordan Ortiz on 06-25-2024 Nucleated red blood cell percentage 0 % 0-5 [facility] Platelet countOrdered By: Nixon Ortiz on 06-25-2024 Platelets (Bld) [#/Vol] 186 10*3/uL 150-450 [facility] Platelet count 186 K/mm3 150-450 [facility] Potassium (Unsp spec) [Mass/ Vol]Ordered By: Jordan Ortiz on 06-25-2024 Potassium measurement (mass/volume) 4.3 mmol/L 3.3-5.1 [facility] Potassium measurement (mass/ volume)Ordered By: Jordan Ortiz on 06-25-2024 Potassium (Unsp spec) [Mass/Vol] 4.3 mmol/L 3.3-5.1 [facility] RBC Auto (Bld) [#/Vol]Ordere d By: Jordan Ortiz on 06-25-2024 RBC (Bld) [#/Vol] 2.68 10*6/uL Low 4.6-6.2 [facility] Automated blood erythrocyte count 2.68 M/mm3 Low 4.6-6.2 [facility] Serum creatinine measurement (mass/volume)Ordered By: Jordan Ortiz on 06-25-2024 Creatinine [Mass/Vol] 1.12 mg/dL 0.70-1.20 [facility] Serum glucose measurement (m ass/volume)Ordered By: Jordan Ortiz on 06-25-2024 Glucose [Mass/Vol] 241 mg/dL High 70-99 [facility] Serum or plasma calcium yocasta urement (mass/volume)Ordered By: Jordan Ortiz on 06-25-2024 Calcium [Mass/Vol] 8.6 mg/dL 7.6-11.0 [facility] Serum or plasma urea nitroge n measurement (mass/volume)Ordered By: Jordan Ortiz on 06-25-2024 Urea nitrogen [Mass/Vol] 46 mg/dL High - [facility] Sodium levelOrdered By: Matthias Ortiz on 06-25-2024 Sodium [Moles/Vol] 138 mmol/L 133-145 [facility] Sodium level 138 mmol/L 133-145 [facility] Urea nitrogen [Mass/Vol]Orde red By: Jordan Ortiz on 06-25-2024 Serum or plasma urea nitrogen measurement (mass/volume) 46 mg/dL High - [facility] White blood cell (WBC) count Ordered By: Jordan Ortiz on 06-25-2024 WBC (Bld) [#/Vol] 7.2 10*3/uL 4.4-11.0 [facility] White blood cell (WBC) count 7.2 K/mm3 4.4-11.0 [facility] Trough vancomycin levelOrder ed By: Wilberto Villafuerte on 06-24-2024 Vancomycin trough [Mass/Vol] 18.8 ug/mL High 5.0-15.0 [facility] Vancomycin trough [Mass/Vol] Ordered By: Wilberto Villafuerte on 06-24-2024 Trough vancomycin level 18.8 ug/mL High 5.0-15.[address] [facility] Blood cultureOrdered By: Brock Villafuerte on 06-23-2024 Bacteria identified Cx Nom (Bld) No growth in 5 days. [facility] Blood culture No growth in [address] [facility] Macrocytes detectionOrdered By: Jordan Ortiz on 06-23-2024 Macrocytes Ql (Bld) 1+ [facility] Microcytosis evaluation pane lOrdered By: Jordan Ortiz on 06-23-2024 Microcytosis evaluation panel 1+ [facility] Blood cultureOrdered By: Tino Ortiz on 06-22-2024 Bacteria identified Cx Nom (Bld) No growth in 5 days. [facility] Blood culture No growth in [address] [facility] Bacteria identified Cx Nom (Bld) No growth in 5 days. [facility] Blood culture No growth in [address] [facility] Serum or plasma vancomycin m easurement (mass/volume)Ordered By: Jordan Ortiz on 06-22-2024 Vancomycin [Mass/Vol] 16.3 ug/mL High 0.0-15.0 [facility] Serum phosphorus measurement Ordered By: Jordan Ortiz on 06-22-2024 Serum phosphorus measurement 5.0 mg/dL High 2.7-4.5 [facility] Vancomycin [Mass/Vol]Ordered By: Jordan Ortiz on 06-22-2024 Serum or plasma vancomycin measurement (mass/volume) 16.3 ug/mL High 0.0-15.0 [facility] ALP [Catalytic activity/Vol] Ordered By: Mable Pritchard on 06-21-2024 Serum or plasma alkaline phosphatase measurement 57 U/L 40-129 [facility] ALT [Catalytic activity/Vol] Ordered By: Mable Pritchard on 06-21-2024 Serum or plasma alanine aminotransferase (ALT) measurement 16 U/L <47 [facility] Albumin [Mass/Vol]Ordered By : Mable Pritchard on 06-21-2024 Serum or plasma albumin measurement (mass/volume) 3.3 g/dL Low 3.4-4.8 [facility] Albumin/Globulin [Mass ratio ]Ordered By: Mable Pritchard on 06-21-2024 Serum or plasma albumin/globulin mass ratio 1.1 RATIO 0.9-2.4 [facility] Bilirubin, totalOrdered By: Mable Pritchard on 06-21-2024 Bilirubin [Mass/Vol] 0.78 mg/dL 0.00-1.30 [facility] Bilirubin, total 0.78 mg/dL 0.00-1.30 [facility] Gram stainOrdered By: Anthony Singleton on 06-21-2024 Microscopic observation Gram stain Nom (Unsp spec) [facility] Microbial respiratory cultur eOrdered By: Anthony Singleton on 06-21-2024 Microorganism identified Cx Nom (Unsp spec) Meth. resistant Staph. aureus Abnormal [facility] Microorganism identified Cx Nom (Unsp spec)Ordered By: Anthony Singleton on 06-21-2024 Microbial respiratory culture Meth. resistant Staph. aureus Abnormal [facility] No Panel InformationOrdered By: Mable Pritchard on 06-21-2024 52 U/L High <38 [facility] Ovalocyte detectionOrdered B y: Mable Pritchard on 06-21-2024 Ovalocytes LM Ql (Bld) RARE [facility] Ovalocytes LM Ql (Bld)Ordere d By: Mable Pritchard on 06-21-2024 Ovalocyte detection RARE [facility] Serum globulin measurementOr dered By: Mable Pritchard on 06-21-2024 Globulin (S) [Mass/Vol] 2.9 g/dL 2.2-4.[address] [facility] Serum globulin measurement 2.9 g/dL 2.2-4.2 [facility] Serum or plasma alanine barber otransferase (ALT) measurementOrdered By: Mable Pritchard on 06-21-2024 ALT [Catalytic activity/Vol] 16 U/L <47 [facility] Serum or plasma albumin yocasta urement (mass/volume)Ordered By: Mable Pritchard on 06-21-2024 Albumin [Mass/Vol] 3.3 g/dL Low 3.4-4.8 [facility] Serum or plasma albumin/glob ulin mass ratioOrdered By: Mable Pritchard on 06-21-2024 Albumin/Globulin [Mass ratio] 1.1 {ratio} 0.9-2.4 [facility] Serum or plasma alkaline justin sphatase measurementOrdered By: Mable Pritchard on 06-21-2024 ALP [Catalytic activity/Vol] 57 U/L 40-129 [facility] Total proteinOrdered By: Orly Pritchard on 06-21-2024 Protein [Mass/Vol] 6.2 g/dL 5.9-8.4 [facility] Total protein 6.2 g/dL 5.9-8.4 [facility] Toxic granules LM Ql (Bld)Or dered By: Mable Pritchard on 06-21-2024 Toxic leukocyte granulation detection 2+ [facility] Toxic leukocyte granulation detectionOrdered By: Mable Pritchard on 06-21-2024 Toxic granules LM Ql (Bld) 2+ [facility] Activated partial thrombopla stin time (aPTT) in platelet poor plasma by coagulation aOrdered By: Sal Driscoll on 06-20-2024 aPTT Coag (PPP) [Time] 21.3 s Low 24.1-36.2 [facility] Arterial patency Wrist arter y --pre arterial punctureOrdered By: Eva Marie on 06-20-2024 Assessment of wrist artery patency prior to arterial puncture Positive [facility] Assessment of wrist artery p atency prior to arterial punctureOrdered By: Eva Marie on 06-20-2024 Arterial patency Wrist artery --pre arterial puncture Positive [facility] Bacteria LM.HPF (Urine sed) [#/Area]Ordered By: Sal Driscoll on 06-20-2024 Urine sediment bacteria count by microscopy (number/high power field) 1+ /hpf None Seen [facility] Base excess Calc (BldV) [Mol es/Vol]Ordered By: Eva Marie on 06-20-2024 Blood base excess determination 10 mmol/L High -2-2 [facility] Basophilic stippling LM Ql ( Bld)Ordered By: Sal Driscoll on 06-20-2024 Erythrocyte basophilic stippling detection RARE [facility] Bilirubin Test strip Ql (U)O rdered By: Sal Driscoll on 06-20-2024 Bilirubin Ql (U) Negative Negative [facility] Blood base excess determinat ionOrdered By: Eva Marie on 06-20-2024 Base excess Calc (BldV) [Moles/Vol] 10 mmol/L High -2-2 [facility] Blood bicarbonate measuremen tOrdered By: Eva Marie on 06-20-2024 HCO3 (Bld) [Moles/Vol] 33.4 mmol/L High - [facility] Blood bicarbonate measurement 33.4 mmol/L High [facility] Blood cultureOrdered By: Magali Driscoll on 06-20-2024 Bacteria identified Cx Nom (Bld) Meth. resistant Staph. aureus Abnormal [facility] Blood culture Meth. resistant Stap h. aureus Abnormal [facility] Blood polychromasia detectio n by light microscopyOrdered By: Sal Driscoll on 06-20-2024 Polychromasia LM Ql (Bld) 1+ [facility] Clarity (U)Ordered By: Sal Driscoll on 06-20-2024 Urine clarity Clear Clear [facility] Color (U)Ordered By: Sal key on 06-20-2024 Urine color determination Yellow Yellow [facility] Determination of fraction of inspired oxygenOrdered By: Eva Marie on 06-20-2024 Determination of fraction of inspired oxygen 4.0 [facility] Erythrocyte basophilic stipp ling detectionOrdered By: Sal Driscoll on 06-20-2024 Basophilic stippling LM Ql (Bld) RARE [facility] Glucose Ql (U)Ordered By: Yanelis Driscoll on 06-20-2024 Urine glucose detection 1000 mg/dl High Normal [facility] Influenza virus A and B and SARS-CoV-2 (COVID-19) and Respiratory syncytial virus RNAOrdered By: Sal Driscoll on 06-20-2024 SARS-CoV-2 (COVID-19) RNA JUSTIN+probe Ql (Unsp spec) [facility] International normalized rat io (INR) calculationOrdered By: Sal Driscoll on 06-20-2024 International normalized ratio (INR) calculation 1.0 [facility] Ketones Test strip Ql (U)Ord ered By: aSl Driscoll on 06-20-2024 Ketones Ql (U) Negative Negative [facility] Lactic acid measurementOrder ed By: Sal Driscoll on 06-20-2024 Lactic acid measurement 1.1 mmol/L 0.0-2.[address] [facility] Leukocyte esterase Test stri p Ql (U)Ordered By: Sal Driscoll on 06-20-2024 Urine leukocyte esterase detection by dipstick 25 /ul High Negative [facility] Measurement, pHOrdered By: Gurwinder Marie on 06-20-2024 pH (Unsp spec) 7.46 [pH] High 7.35-7.45 [facility] Microscopic analysis of urin e for red blood cells (RBC)Ordered By: Sal Driscoll on 06-20-2024 Microscopic analysis of urine for red blood cells (RBC) 0-5 SEEN /hpf 0-5 [facility] Mucus LM Ql (Urine sed)Order ed By: Sal Driscoll on 06-20-2024 Mucus Ql (Urine sed) 0 SEEN /hpf [facility] Mucus detection in urine sediment by light microscopy 0 SEEN /hpf [facility] Natriuretic peptide.B prohor sena N-Terminal [Mass/Vol]Ordered By: Sal Driscoll on 06-20-2024 Natriuretic peptide.B prohormone N-Terminal [Mass/volume] in Serum or Plasma 4069 pg/mL High <900 [facility] Natriuretic peptide.B prohor sena N-Terminal [Mass/volume] in Serum or PlasmaOrdered By: Sal Driscoll on 06-20-2024 Natriuretic peptide.B prohormone N-Terminal [Mass/Vol] 4069 pg/mL High <900 [facility] Nitrite Test strip Ql (U)Ord ered By: Sal Driscoll on 06-20-2024 Nitrite Ql (U) Negative Negative [facility] No Panel InformationOrdered By: Eva Marie on 06-20-2024 ART [facility] L Radial [facility] Not entered [facility] Cannula [facility] Organism identificationOrder ed By: Sal Driscoll on 06-20-2024 Microorganism identified Cx Nom (Unsp spec) Meth. resistant Staph. aureus Abnormal [facility] Oxygen saturation measuremen tOrdered By: Eva Marie on 06-20-2024 Oxygen saturation measurement 87 % Low 95-99 [facility] Partial pressure of carbon d ioxide measurementOrdered By: Eva Marie on 06-20-2024 Partial pressure of carbon dioxide measurement 47.0 mmHg High 35-45 [facility] Partial pressure of oxygen m easurementOrdered By: Eva Marie on 06-20-2024 Partial pressure of oxygen measurement 51 mmHG Low 75-100 [facility] Platelet estimateOrdered By: Sal Driscoll on 06-20-2024 Plate[facility] (Bld) [facility] Platelets LM Ql (Bld)Ordered By: Sal Driscoll on 06-20-2024 Platelet estimate A [facility] Polychromasia LM Ql (Bld)Ord ered By: Sal Driscoll on 06-20-2024 Blood polychromasia detection by light microscopy 1+ [facility] Procalcitonin IA [Mass/Vol]O rdered By: Sal Driscoll on 06-20-2024 Procalcitonin [Mass/volume] in Serum or Plasma by Immunoassay 0.10 ng/mL <0.11 [facility] Procalcitonin [Mass/volume] in Serum or Plasma by ImmunoassayOrdered By: Sal Driscoll on 06-20-2024 Procalcitonin IA [Mass/Vol] 0.10 ng/mL <0.11 [facility] Protein Test strip Ql (U)Ord ered By: Sal Driscoll on 06-20-2024 Protein Ql (U) 30 mg/dl High Negative [facility] Urine protein assay by test strip, semi-quantitative 30 mg/dl High Negative [facility] Prothrombin timeOrdered By: Sal Driscoll on 06-20-2024 PT Coag (PPP) [Time] 13.4 s 11.7-14.9 [facility] Prothrombin time 13.4 SECONDS 11.7-14.9 [facility] Respiratory pathogens detect ion panel by molecular detection methodOrdered By: Mable Pritchard on 06-20-2024 Respiratory pathogens DNA and RNA panel JUSTIN+probe (Resp) [facility] Specific gravity (U) [Rel de nsity]Ordered By: Sal Driscoll on 06-20-2024 Urine specific gravity measurement 1.010 1.002-1.030 [facility] Squamous epithelial cells de tection in urine sediment by light microscopyOrdered By: Sal Driscoll on 06-20-2024 Epithelial cells.squamous LM Ql (Urine sed) 0-5 SEEN /hpf 0-5 [facility] Total carbon dioxide measure mentOrdered By: Eva Marie on 06-20-2024 CO2 [Moles/Vol] 35 mmol/L [facility] Total carbon dioxide measurement 35 mmol/L [facility] Transitional cells detection in urine sediment by light microscopyOrdered By: Sal Driscoll on 06-20-2024 Transitional cells LM Ql (Urine sed) 0-5 SEEN /hpf 0-5 [facility] Urine Legionella pneumophila antigen detectionOrdered By: Mable Pritchard on 06-20-2024 L. pneumophila Ag Ql (U) [facility] Urine blood detectionOrdered By: Sal Driscoll on 06-20-2024 Urine blood detection 10 /ul High Negative [facility] Urine clarityOrdered By: Magali Driscoll on 06-20-2024 Clarity (U) Clear Clear [facility] Urine color determinationOrd ered By: Sal Driscoll on 06-20-2024 Color (U) Yellow Yellow [facility] Urine cultureOrdered By: Magali Driscoll on 06-20-2024 Bacteria identified Cx Nom (U) Yeast, not Elisha albicans Abnormal [facility] Urine culture Yeast, not Elisha albicans Abnormal [facility] Urine glucose detectionOrder ed By: Sal Driscoll on 06-20-2024 Glucose Ql (U) 1000 mg/dl High Normal [facility] Urine leukocyte esterase det ection by dipstickOrdered By: Sal Driscoll on 06-20-2024 Leukocyte esterase Test strip Ql (U) 25 /ul High Negative [facility] Urine pHOrdered By: Sal hinson on 06-20-2024 pH (U) 6.5 [pH] 5.0 - 8.0 [facility] Urine sediment bacteria coun t by microscopy (number/high power field)Ordered By: Sal Driscoll on 06-20-2024 Bacteria LM.HPF (Urine sed) [#/Area] 1 /[HPF] None Seen [facility] Urine specific gravity measu rementOrdered By: Sal Driscoll on 06-20-2024 Specific gravity (U) [Rel density] 1.010 1.002-1.030 [facility] Urine total bilirubin detect ion by test stripOrdered By: Sal Driscoll on 06-20-2024 Urine total bilirubin detection by test strip Negative Negative [facility] Urine urobilinogen measureme ntOrdered By: Sal Driscoll on 06-20-2024 Urobilinogen Ql (U) Normal mg/dl Normal [facility] Urobilinogen Ql (U)Ordered B y: Sal Driscoll on 06-20-2024 Urine urobilinogen measurement Normal mg/dl Normal [facility] White blood cell countOrdere d By: Sal Driscoll on 06-20-2024 White blood cell count 10-25 SEEN /hpf 0-5 [facility] White blood cell count 10-25 SEEN /hpf 0-5 [facility] aPTT Coag (PPP) [Time]Ordere d By: Sal Driscoll on 06-20-2024 Activated partial thromboplastin time (aPTT) in platelet poor plasma by coagulation a 21.3 Seconds Low 24.1-36.2 [facility] pH (U)Ordered By: Sal pollock on 06-20-2024 Urine pH 6.5 5.0 - 8.0 [facility] pH (Unsp spec)Ordered By: Henrique Marie on 06-20-2024 Measurement, pH 7.46 High 7.35-7.45 [facility] ALP [Catalytic activity/Vol] Ordered By: Tobi Zapata on 04-27-2024 Serum or plasma alkaline phosphatase measurement 73 U/L 40-129 [facility] ALT [Catalytic activity/Vol] Ordered By: Tobi Zapata on 04-27-2024 Serum or plasma alanine aminotransferase (ALT) measurement 13 U/L <47 [facility] Absolute lymphocyte countOrd ered By: Tobi Zapata on 04-27-2024 Lymphocytes Auto (Unsp spec) [#/Vol] 1.47 10*3/uL 0.83-4.51 [facility] Absolute neutrophil countOrd ered By: Tobi Zapata on 04-27-2024 Absolute neutrophil count 5.8 X10^3/uL 2.0-7.7 [facility] Albumin [Mass/Vol]Ordered By : Tobi Zapata on 04-27-2024 Serum or plasma albumin measurement (mass/volume) 3.9 g/dL 3.4-4.8 [facility] Albumin/Globulin [Mass ratio ]Ordered By: Tobi Zapata on 04-27-2024 Serum or plasma albumin/globulin mass ratio 1.5 RATIO 0.9-2.4 [facility] Anion gap [Moles/Vol]Ordered By: Tobi Zapata on 04-27-2024 Anion gap in Serum or Plasma 10 5-15 [facility] Anion gap in Serum or Plasma Ordered By: Tobi Zapata on 04-27-2024 Anion gap [Moles/Vol] 10 mmol/L 5-15 [facility] Automated lymphocyte count a s percentage of total leukocytesOrdered By: Tobi Zapata on 04-27-2024 Lymphocytes/100 WBC Auto (Unsp spec) 17.7 % Low 19-41 [facility] BUN/creatinine ratioOrdered By: Tobi Zapata on 04-27-2024 Urea nitrogen/Creatinine [Mass ratio] 17.8 mg/mg 10-20 [facility] BUN/creatinine ratio 17.8 RATIO 10-20 [facility] Basophil percentageOrdered B y: Tobi Zapata on 04-27-2024 Basophils/100 WBC (Bld) 0.4 % 0-1 [facility] Basophil percentage 0.4 % 0-1 [facility] Bilirubin, totalOrdered By: Tobi Zapata on 04-27-2024 Bilirubin [Mass/Vol] 0.42 mg/dL 0.00-1.30 [facility] Bilirubin, total 0.42 mg/dL 0.00-1.30 [facility] Blood polychromasia detectio n by light microscopyOrdered By: Tobi Zapata on 04-27-2024 Polychromasia LM Ql (Bld) 1+ [facility] CRP [Mass/Vol]Ordered By: Fabiana Zapata on 04-27-2024 Serum or plasma C reactive protein measurement (mass/volume) 11.90 mg/L High 0.0-3.0 [facility] Calcium [Mass/Vol]Ordered By : Tobi Zapata on 04-27-2024 Serum or plasma calcium measurement (mass/volume) 8.8 mg/dL 7.6-11.0 [facility] Calculated total iron bindin g capacityOrdered By: Tobi Zapata on 04-27-2024 Calculated total iron binding capacity 252 ug/dL 250-450 [facility] Carbon dioxide, total [Moles /volume] in Central venous bloodOrdered By: Tobi Zapata on 04-27-2024 CO2 [Moles/Vol] 32.7 mmol/L High 21.0-32.0 [facility] Carbon dioxide, total [Moles/volume] in Central venous blood 32.7 mmol/L High 21.0-32.0 [facility] Chloride assayOrdered By: Fabiana Zapata on 04-27-2024 Chloride [Moles/Vol] 102 mmol/L 98-108 [facility] Chloride assay 102 mmol/L 98-108 [facility] Cobalamin (Vitamin B12) [Mas s/Vol]Ordered By: Tobi Zapata on 04-27-2024 Vitamin B12 ser/plas 767 pg/mL 180-914 [facility] Creatinine [Mass/Vol]Ordered By: Tobi Zapata on 04-27-2024 Serum creatinine measurement (mass/volume) 1.38 mg/dL High 0.70-1.20 [facility] ESR (Bld) [Velocity]Ordered By: Tobi Zapata on 04-27-2024 Erythrocyte sedimentation rate 25 mm/hr High 0-20 [facility] Eosinophil percentageOrdered By: Tobi Zapata on 04-27-2024 Eosinophils/100 WBC (Bld) 3.3 % 0-5 [facility] Eosinophil percentage 3.3 % 0-5 [facility] Erythrocyte distribution wid th (RBC) [Ratio]Ordered By: Tobi Zapata on 04-27-2024 Erythrocyte distribution width ratio 18.6 % High 11.6-14.6 [facility] Erythrocyte distribution width standard deviation 60.6 fl High 35.1-43.9 [facility] Erythrocyte distribution wid th ratioOrdered By: Tobi Zapata on 04-27-2024 Erythrocyte distribution width (RBC) [Ratio] 18.6 % High 11.6-14.6 [facility] Erythrocyte distribution wid th standard deviationOrdered By: Tobi Zapata on 04-27-2024 Erythrocyte distribution width (RBC) [Ratio] 60.6 fl High 35.1-43.9 [facility] Erythrocyte sedimentation ra teOrdered By: Tobi Zapata on 04-27-2024 ESR (Bld) [Velocity] 25 mm/h High 0-20 [facility] Erythropoietin (EPO) QnOrder ed By: Tobi Zapata on 04-27-2024 Serum or plasma erythropoietin (EPO) measurement (units/volume) 23.0 mIU/mL High 2.6-18.5 [facility] Estimation of creatinine montez aranceOrdered By: Tobi Zapata on 04-27-2024 Estimation of creatinine clearance 56.53 ml/min 50-250 [facility] Ferritin [Mass/Vol]Ordered B y: Tobi Zapata on 04-27-2024 Serum or plasma ferritin measurement (mass/volume) 80 ng/mL 37-417 [facility] Folate [Mass/Vol]Ordered By: Tboi Zapata on 04-27-2024 Folate [Mass/volume] in Serum or Plasma 7.25 ng/mL 4.60-34.80 [facility] Folate [Mass/volume] in Seru m or PlasmaOrdered By: Tobi Zapata on 04-27-2024 Folate [Mass/Vol] 7.25 ng/mL 4.60-34.80 [facility] GFR/1.73 sq M.predicted idania g non-blacks MDRD (S/P/Bld) [Vol rate/Area]Ordered By: Tobi Zapata on 04-27-2024 Glomerular filtration rate (GFR) estimation/1.73 sq m using serum, plasma, or whole b 54 Low >60 [facility] Glomerular filtration rate ( GFR) estimation/1.73 sq m using serum, plasma, or whole bOrdered By: Tobi Zapata on 04-27-2024 GFR/1.73 sq M.predicted among non-blacks MDRD (S/P/Bld) [Vol rate/Area] 54 mL/min/{1.73_m2} Low >60 [facility] Glucose [Mass/Vol]Ordered By : Tobi Zapata on 04-27-2024 Serum glucose measurement (mass/volume) 144 mg/dL High 70-99 [facility] Hematocrit Auto (Bld) [Volum e fraction]Ordered By: Tobi Zapata on 04-27-2024 Hematocrit (Bld) [Volume fraction] 29.2 % Low 40-54 [facility] Automated blood hematocrit (percentage) 29.2 % Low 40-54 [facility] Hemoglobin (Reticulocytes) [ Entitic mass]Ordered By: Tobi Zapata on 04-27-2024 Reticulocyte hemoglobin equivalent (RET-He) measurement 26.6 pg Low 30-35 [facility] Hemoglobin measurementOrdere d By: oTbi Zapata on 04-27-2024 Hemoglobin (Bld) [Mass/Vol] 8.7 g/dL Low 13.0-16.5 [facility] Hemoglobin measurement 8.7 g/dL Low 13.0-16.5 [facility] Immature granulocytes/100 WB C Auto (Bld)Ordered By: Tobi Zapata on 04-27-2024 Immature granulocytes/100 WBC (Bld) 0.700 % 0.0-0.9 [facility] Automated immature granulocyte percentage 0.700 % 0.0-0.9 [facility] Immature platelet percentage Ordered By: Tobi Zapata on 04-27-2024 Platelets reticulated/100 platelets Auto (Bld) 3.7 % 1.0-7.9 [facility] Immature reticulocyte fracti onOrdered By: Tobi Zapata on 04-27-2024 Immature reticulocyte fraction 29.90 % High 3.00-15.90 [facility] Iron (Unsp spec) [Mass/Mass] Ordered By: Tobi Zapata on 04-27-2024 Iron measurement (mass/mass) 40 ug/dL Low 65-175 [facility] Iron measurement (mass/mass) Ordered By: Tobi Zapata on 04-27-2024 Iron (Unsp spec) [Mass/Mass] 40 ug/dL Low 65-175 [facility] Iron saturation [Mass fracti on]Ordered By: Tobi Zapata on 04-27-2024 Serum or plasma iron saturation measurement (mass fraction) 15.9 % 15.0-55.0 [facility] Lactate dehydrogenase (LDH) measurementOrdered By: Tobi Zapata on 04-27-2024 Lactate dehydrogenase (LDH) measurement 207 U/L 87-241 [facility] Lymphocytes Auto (Unsp spec) [#/Vol]Ordered By: Tobi Zapata on 04-27-2024 Absolute lymphocyte count 1.47 X10^3/uL 0.83-4.51 [facility] Lymphocytes/100 WBC Auto (Un sp spec)Ordered By: Tobi Zapata on 04-27-2024 Automated lymphocyte count as percentage of total leukocytes 17.7 % Low 19-41 [facility] MCV (RBC) [Entitic vol]Order ed By: Tobi Zapata on 04-27-2024 MCV (mean corpuscular volume) determination 89.0 fL 80-94 [facility] MCV (mean corpuscular volume ) determinationOrdered By: Tobi Zapata on 04-27-2024 MCV (RBC) [Entitic vol] 89.0 fL 80-[address] [facility] Magnesium (Unsp spec) [Mass/ Vol]Ordered By: Tobi Zapata on 04-27-2024 Magnesium measurement (mass/volume) 1.9 mg/dL 1.5-2.2 [facility] Magnesium measurement (mass/ volume)Ordered By: Tobi Zapata on 04-27-2024 Magnesium (Unsp spec) [Mass/Vol] 1.9 mg/dL 1.5-2.2 [facility] Mean corpuscular hemoglobin (MCH) determinationOrdered By: Tobi Zapata on 04-27-2024 MCH (RBC) [Entitic mass] 26.5 pg Low 27.0-32.0 [facility] Mean corpuscular hemoglobin (MCH) determination 26.5 pg Low 27.0-32.0 [facility] Mean corpuscular hemoglobin concentration (MCHC) determinationOrdered By: Tobi Zapata on 04-27-2024 Mean corpuscular hemoglobin concentration (MCHC) determination 29.8 g/dL Low 32-36 [facility] Mean platelet volume determi nationOrdered By: Tobi Zapata on 04-27-2024 Mean platelet volume determination 10.3 fl 6.2-12.0 [facility] Monocyte percentageOrdered B y: Tobi Zapata on 04-27-2024 Monocytes/100 WBC (Bld) 7.6 % 0-[address] [facility] Monocyte percentage 7.6 % 0-10 [facility] Neutrophil percentageOrdered By: Tobi Zapata on 04-27-2024 Neutrophils/100 WBC (Bld) 70.3 % High 47-70 [facility] Neutrophil percentage 70.3 % High 47-70 [facility] No Panel InformationOrdered By: Tobi Zapata on 04-27-2024 12 U/L <38 [facility] 212 ug/dL Low 228-428 [facility] Nucleated red blood cell per centageOrdered By: Tobi Zapata on 04-27-2024 Nucleated red blood cell percentage 0.5 % 0-5 [facility] Ovalocyte detectionOrdered B y: Tobi Zapata on 04-27-2024 Ovalocytes LM Ql (Bld) 2+ [facility] Ovalocytes LM Ql (Bld)Ordere d By: Tobi Zapata on 04-27-2024 Ovalocyte detection 2+ [facility] Platelet countOrdered By: Fabiana Zapata on 04-27-2024 Platelets (Bld) [#/Vol] 228 10*3/uL 150-450 [facility] Platelet count 228 K/mm3 150-450 [facility] Platelet estimateOrdered By: Tobi Zapata on 04-27-2024 Platelets LM Ql (Bld) a ADEQ [facility] Platelets LM Ql (Bld)Ordered By: Tobi Zapata on 04-27-2024 Platelet estimate a [facility] Platelets reticulated/100 pl atelets Auto (Bld)Ordered By: Tobi Zapata on 04-27-2024 Immature platelet percentage 3.7 % 1.0-7.9 [facility] Polychromasia LM Ql (Bld)Ord ered By: Tobi Zapata on 04-27-2024 Blood polychromasia detection by light microscopy 1+ [facility] Potassium (Unsp spec) [Mass/ Vol]Ordered By: Tobi Zapata on 04-27-2024 Potassium measurement (mass/volume) 4.2 mmol/L 3.3-5.1 [facility] Potassium measurement (mass/ volume)Ordered By: Tobi Zapata on 04-27-2024 Potassium (Unsp spec) [Mass/Vol] 4.2 mmol/L 3.3-5.1 [facility] RBC Auto (Bld) [#/Vol]Ordere d By: Tobi Zapata on 04-27-2024 RBC (Bld) [#/Vol] 3.28 10*6/uL Low 4.6-6.2 [facility] Automated blood erythrocyte count 3.28 M/mm3 Low 4.6-6.2 [facility] Reticulocyte hemoglobin equi valent (RET-He) measurementOrdered By: Tobi Zapata on 04-27-2024 Hemoglobin (Reticulocytes) [Entitic mass] 26.6 pg Low 30-35 [facility] Reticulocytes Auto (Bld) [#/ Vol]Ordered By: Tobi Zapata on 04-27-2024 Reticulocytes/100 RBC (Bld) 1.82 % High 0.5-1.5 [facility] Automated blood reticulocytes count (number/volume) 1.82 % High 0.5-1.5 [facility] Serum creatinine measurement (mass/volume)Ordered By: Tobi Zapata on 04-27-2024 Creatinine [Mass/Vol] 1.38 mg/dL High 0.70-1.20 [facility] Serum globulin measurementOr dered By: Tobi Zapata on 04-27-2024 Globulin (S) [Mass/Vol] 2.5 g/dL 2.2-4.[address] [facility] Serum globulin measurement 2.5 g/dL 2.2-4.2 [facility] Serum glucose measurement (m ass/volume)Ordered By: Tobi Zapata on 04-27-2024 Glucose [Mass/Vol] 144 mg/dL High 70-99 [facility] Serum or plasma C reactive p rotein measurement (mass/volume)Ordered By: Tobi Zapata on 04-27-2024 CRP [Mass/Vol] 11.90 mg/L High 0.0-3.0 [facility] Serum or plasma alanine barber otransferase (ALT) measurementOrdered By: Tobi Zapata on 04-27-2024 ALT [Catalytic activity/Vol] 13 U/L <47 [facility] Serum or plasma albumin yocasta urement (mass/volume)Ordered By: Tobi Zapata on 04-27-2024 Albumin [Mass/Vol] 3.9 g/dL 3.4-4.8 [facility] Serum or plasma albumin/glob ulin mass ratioOrdered By: Tobi Zapata on 04-27-2024 Albumin/Globulin [Mass ratio] 1.5 {ratio} 0.9-2.4 [facility] Serum or plasma alkaline justin sphatase measurementOrdered By: Tobi Zapata on 04-27-2024 ALP [Catalytic activity/Vol] 73 U/L 40-129 [facility] Serum or plasma calcium yocasta urement (mass/volume)Ordered By: Tobi Zapata on 04-27-2024 Calcium [Mass/Vol] 8.8 mg/dL 7.6-11.0 [facility] Serum or plasma erythropoiet in (EPO) measurement (units/volume)Ordered By: Tobi Zapata on 04-27-2024 Erythropoietin (EPO) Qn 23.0 mIU/mL High 2.6-18.5 [facility] Serum or plasma ferritin vasquez surement (mass/volume)Ordered By: Tobi Zapata on 04-27-2024 Ferritin [Mass/Vol] 80 ng/mL 37-417 [facility] Serum or plasma iron saturat ion measurement (mass fraction)Ordered By: Tobi Zapata on 04-27-2024 Iron saturation [Mass fraction] 15.9 % 15.0-55.0 [facility] Serum or plasma urea nitroge n measurement (mass/volume)Ordered By: Tobi Zapata on 04-27-2024 Urea nitrogen [Mass/Vol] 25 mg/dL High 06-12 [facility] Serum phosphorus measurement Ordered By: Tobi Zapata on 04-27-2024 Serum phosphorus measurement 4.2 mg/dL 2.7-4.5 [facility] Sodium levelOrdered By: Dimas Zapata on 04-27-2024 Sodium [Moles/Vol] 145 mmol/L 133-145 [facility] Sodium level 145 mmol/L 133-145 [facility] Total proteinOrdered By: Mikael Zapata on 04-27-2024 Protein [Mass/Vol] 6.4 g/dL 5.9-8.4 [facility] Total protein 6.4 g/dL 5.9-8.4 [facility] Urea nitrogen [Mass/Vol]Orde red By: Tobi Zapata on 04-27-2024 Serum or plasma urea nitrogen measurement (mass/volume) 25 mg/dL High 4-19 [facility] Vitamin B12 ser/plasOrdered By: Tobi Zapata on 04-27-2024 Cobalamin (Vitamin B12) [Mass/Vol] 767 pg/mL 180-914 [facility] White blood cell (WBC) count Ordered By: Tobi Zapata on 04-27-2024 WBC (Bld) [#/Vol] 8.3 10*3/uL 4.4-11.0 [facility] White blood cell (WBC) count 8.3 K/mm3 4.4-11.0 [facility] Absolute lymphocyte countOrd ered By: Huang Lazcano on 04-08-2024 Lymphocytes Auto (Unsp spec) [#/Vol] 0.44 10*3/uL Low 0.83-4.51 [facility] Absolute neutrophil countOrd ered By: Huang Lazcano on 04-08-2024 Absolute neutrophil count 8.3 X10^3/uL High 2.0-7.7 [facility] Automated lymphocyte count a s percentage of total leukocytesOrdered By: Huang Lazcano on 04-08-2024 Lymphocytes/100 WBC Auto (Unsp spec) 4.7 % Low 19-41 [facility] Basophil percentageOrdered B y: Huang Lazcano on 04-08-2024 Basophils/100 WBC (Bld) 0.1 % 0-[address] [facility] Basophil percentage 0.1 % 0-1 [facility] Blood urea nitrogen (BUN)/cr eatinine ratioOrdered By: Huang Lazcano on 04-08-2024 Blood urea nitrogen (BUN)/creatinine ratio 30.6 RATIO High 10-20 [facility] Calcium [Mass/Vol]Ordered By : Huang Lazcano on 04-08-2024 Serum or plasma calcium measurement (mass/volume) 8.5 mg/dL 8.5-10.1 [facility] Carbon dioxide measurementOr dered By: Huang Lazcano on 04-08-2024 CO2 [Moles/Vol] 29.0 mmol/L 21.0-32.0 [facility] Carbon dioxide measurement 29.0 mmol/L 21.0-32.0 [facility] Chloride measurementOrdered By: Huang Lazcano on 04-08-2024 Chloride [Moles/Vol] 110 mmol/L High 98-107 [facility] Chloride measurement 110 mmol/L High 98-107 [facility] Creatinine [Mass/Vol]Ordered By: Huang Lazcano on 04-08-2024 Serum or plasma creatinine measurement (mass/volume) 1.47 mg/dL High 0.70-1.30 [facility] Eosinophil percentageOrdered By: Huang Lazcano on 04-08-2024 Eosinophils/100 WBC (Bld) 0.0 % 0-5 [facility] Eosinophil percentage 0.0 % 0-5 [facility] Erythrocyte distribution wid th (RBC) [Ratio]Ordered By: Huang Lazcano on 04-08-2024 Erythrocyte distribution width ratio 17.1 % High 11.6-14.6 [facility] Erythrocyte distribution width standard deviation 54.2 fl High 35.1-43.9 [facility] Erythrocyte distribution wid th ratioOrdered By: Huang Lazcano on 04-08-2024 Erythrocyte distribution width (RBC) [Ratio] 17.1 % High 11.6-14.6 [facility] Erythrocyte distribution wid th standard deviationOrdered By: Huang Lazcano on 04-08-2024 Erythrocyte distribution width (RBC) [Ratio] 54.2 fl High 35.1-43.9 [facility] Estimated glomerular filtrat ion rate (GFR) AmericanOrdered By: Huang Lazcano on 04-08-2024 Estimated glomerular filtration rate (GFR) 60 mL/min >60 [facility] Estimation of creatinine montez aranceOrdered By: Huang Lazcano on 04-08-2024 Estimation of creatinine clearance 52.92 ml/min [facility] Glomerular filtration rate ( GFR) estimationOrdered By: Huang Lazcano on 04-08-2024 GFR/1.73 sq M.predicted among non-blacks MDRD (S/P/Bld) [Vol rate/Area] 50 mL/min/{1.73_m2} Low >60 [facility] Glomerular filtration rate (GFR) estimation 50 mL/min Low >60 [facility] Glucose measurementOrdered B y: Huang Lazcano on 04-08-2024 Glucose [Mass/Vol] 340 mg/dL High 74-106 [facility] Glucose measurement 340 mg/dL High 74-106 [facility] Glucose measurement at bedsi deOrdered By: Huang Lazcano on 04-08-2024 Glucose [Mass/Vol] 314 mg/dL High 74-106 [facility] Glucose measurement at bedside 314 mg/dL High 74-106 [facility] Hematocrit Auto (Bld) [Volum e fraction]Ordered By: Huang Lazcano on 04-08-2024 Hematocrit (Bld) [Volume fraction] 28.2 % Low 40-54 [facility] Automated blood hematocrit (percentage) 28.2 % Low 40-54 [facility] Hemoglobin measurementOrdere d By: Huang Lazcano on 04-08-2024 Hemoglobin (Bld) [Mass/Vol] 8.6 g/dL Low 13.0-16.5 [facility] Hemoglobin measurement 8.6 g/dL Low 13.0-16.5 [facility] Immature granulocytes/100 WB C Auto (Bld)Ordered By: Huang Lazcano on 04-08-2024 Immature granulocytes/100 WBC (Bld) 1.200 % High 0.0-0.9 [facility] Automated immature granulocyte percentage 1.200 % High 0.0-0.9 [facility] Lymphocytes Auto (Unsp spec) [#/Vol]Ordered By: Huang Lazcano on 04-08-2024 Absolute lymphocyte count 0.44 X10^3/uL Low 0.83-4.51 [facility] Lymphocytes/100 WBC Auto (Un sp spec)Ordered By: Huang Lazcano on 04-08-2024 Automated lymphocyte count as percentage of total leukocytes 4.7 % Low 19-41 [facility] MCV (RBC) [Entitic vol]Order ed By: Huang Lazcano on 04-08-2024 MCV (mean corpuscular volume) determination 87.6 fL 80-94 [facility] MCV (mean corpuscular volume ) determinationOrdered By: Huang Lazcano on 04-08-2024 MCV (RBC) [Entitic vol] 87.6 fL 80-94 [facility] Mean corpuscular hemoglobin (MCH) determinationOrdered By: Huang Lazcano on 04-08-2024 MCH (RBC) [Entitic mass] 26.7 pg Low 27.0-32.0 [facility] Mean corpuscular hemoglobin (MCH) determination 26.7 pg Low 27.0-32.0 [facility] Mean corpuscular hemoglobin concentration (MCHC) determinationOrdered By: Huang Lazcano on 04-08-2024 Mean corpuscular hemoglobin concentration (MCHC) determination 30.5 g/dL Low 32-36 [facility] Mean platelet volume determi nationOrdered By: Huang Lazcano on 04-08-2024 Mean platelet volume determination 11.3 fl 6.2-12.0 [facility] Monocyte percentageOrdered B y: Huang Lazcano on 04-08-2024 Monocytes/100 WBC (Bld) 5.8 % 0-[address] [facility] Monocyte percentage 5.8 % 0-10 [facility] Neutrophil percentageOrdered By: Huang Lazcano on 04-08-2024 Neutrophils/100 WBC (Bld) 88.2 % High 47-70 [facility] Neutrophil percentage 88.2 % High 47-70 [facility] Nucleated red blood cell per centageOrdered By: Huang Lazcano on 04-08-2024 Nucleated red blood cell percentage 0.5 % 0-5 [facility] Platelet countOrdered By: Bessie Lazcano on 04-08-2024 Platelets (Bld) [#/Vol] 308 10*3/uL 150-450 [facility] Platelet count 308 K/mm3 150-450 [facility] Potassium measurementOrdered By: Huang Lazcano on 04-08-2024 Potassium [Moles/Vol] 4.6 mmol/L 3.5-5.1 [facility] Potassium measurement 4.6 mmol/L 3.5-5.1 [facility] RBC Auto (Bld) [#/Vol]Ordere d By: Huang Lazcano on 04-08-2024 RBC (Bld) [#/Vol] 3.22 10*6/uL Low 4.6-6.2 [facility] Automated blood erythrocyte count 3.22 M/mm3 Low 4.6-6.2 [facility] Serum anion gap measurementO rdered By: Huang Lazcano on 04-08-2024 Serum anion gap measurement 4 Low 5-15 [facility] Serum or plasma calcium yocasta urement (mass/volume)Ordered By: Huang Lazcano on 04-08-2024 Calcium [Mass/Vol] 8.5 mg/dL 8.5-10.1 [facility] Serum or plasma creatinine m easurement (mass/volume)Ordered By: Huang Lazcano on 04-08-2024 Creatinine [Mass/Vol] 1.47 mg/dL High 0.70-1.30 [facility] Serum or plasma urea nitroge n measurement (mass/volume)Ordered By: Huang Lazcano on 04-08-2024 Urea nitrogen [Mass/Vol] 45 mg/dL High 7-18 [facility] Sodium levelOrdered By: Anam Lazcano on 04-08-2024 Sodium [Moles/Vol] 143 mmol/L 136-145 [facility] Sodium level 143 mmol/L 136-145 [facility] Urea nitrogen [Mass/Vol]Orde red By: Huang Lazcano on 04-08-2024 Serum or plasma urea nitrogen measurement (mass/volume) 45 mg/dL High 7-18 [facility] White blood cell (WBC) count Ordered By: Huang Lazcano on 04-08-2024 WBC (Bld) [#/Vol] 9.4 10*3/uL 4.4-11.0 [facility] White blood cell (WBC) count 9.4 K/mm3 4.4-11.0 [facility] Gram stainOrdered By: Anthony Singleton on 04-06-2024 Microscopic observation Gram stain Nom (Unsp spec) [facility] HbA1c (Bld) [Mass fraction]O rdered By: Jordan Driscoll on 04-06-2024 Hemoglobin A1c percentage 9.2 % High 3.8-5.6 [facility] Hemoglobin A1c percentageOrd ered By: Jordan Driscoll on 04-06-2024 HbA1c (Bld) [Mass fraction] 9.2 % High 3.8-5.6 [facility] Microbial respiratory cultur eOrdered By: Anthony Singleton on 04-06-2024 Microorganism identified Cx Nom (Unsp spec) Meth. resistant Staph. aureus Abnormal [facility] Microorganism identified Cx Nom (Unsp spec)Ordered By: Anthony Singleton on 04-06-2024 Microbial respiratory culture Meth. resistant Staph. aureus Abnormal [facility] ALP [Catalytic activity/Vol] Ordered By: Malachi Paredes on 04-05-2024 Serum or plasma alkaline phosphatase measurement 69 U/L 45-117 [facility] ALT [Catalytic activity/Vol] Ordered By: Malachi Paredes on 04-05-2024 Serum or plasma alanine aminotransferase (ALT) measurement 12 U/L Low 16-61 [facility] Activated partial thrombopla stin time (aPTT) in platelet poor plasma by coagulation aOrdered By: Malachi Paredes on 04-05-2024 aPTT Coag (PPP) [Time] 25.4 s 24.1-36.2 [facility] Albumin [Mass/Vol]Ordered By : Malachi Paredes on 04-05-2024 Serum or plasma albumin measurement (mass/volume) 3.1 g/dL Low 3.2-5.0 [facility] Albumin to globulin ratioOrd ered By: Malachi Paredes on 04-05-2024 Albumin to globulin ratio 0.8 RATIO Low 0.9-2.4 [facility] BNP (brain natriuretic pepti de measurement)Ordered By: Jordan Driscoll on 04-05-2024 Natriuretic peptide B (Bld) [Mass/Vol] 476.6 pg/mL High 0-100 [facility] BNP (brain natriuretic peptide measurement) 476.6 pg/mL High 0-100 [facility] Bacteria LM.HPF (Urine sed) [#/Area]Ordered By: Malachi Paredes on 04-05-2024 Urine sediment bacteria count by microscopy (number/high power field) 1+ /hpf None Seen [facility] Base excess Calc (BldV) [Mol es/Vol]Ordered By: Jordan Driscoll on 04-05-2024 Venous blood base excess measurement 0 mmol/L -1.0-3.5 [facility] Bilirubin Test strip Ql (U)O rdered By: Malachi Paredes on 04-05-2024 Bilirubin Ql (U) Negative Negative [facility] Bilirubin, totalOrdered By: Malachi Paredes on 04-05-2024 Bilirubin [Mass/Vol] 0.40 mg/dL 0.20-1.00 [facility] Bilirubin, total 0.40 mg/dL 0.20-1.00 [facility] Blood cultureOrdered By: Charlie Paredes on 04-05-2024 Bacteria identified Cx Nom (Bld) No growth in 5 days. [facility] Blood culture No growth in [address] [facility] Bacteria identified Cx Nom (Bld) No growth in 5 days. [facility] Blood culture No growth in [address] [facility] CO2 (BldV) [Moles/Vol]Ordere d By: Jordan Driscoll on 04-05-2024 CO2 [Moles/Vol] 26 mmol/L 23- [facility] Venous blood total carbon dioxide measurement 26 mmol/L [facility] CO2 (BldV) [Partial pressure ]Ordered By: Jordan Driscoll on 04-05-2024 Venous blood partial pressure of carbon dioxide measurement 41.2 mmHg 41-51 [facility] Clarity (U)Ordered By: Malachi Paredes on 04-05-2024 Urine clarity Cloudy Clear [facility] Color (U)Ordered By: Malachi Paredes on 04-05-2024 Urine color determination Yellow Yellow [facility] Determination of fraction of inspired oxygenOrdered By: Jordan Driscoll on 04-05-2024 Determination of fraction of inspired oxygen 6.0 [facility] Epithelial cells.squamous LM Ql (Urine sed)Ordered By: Malachi Paredes on 04-05-2024 Squamous epithelial cells detection in urine sediment by light microscopy 0-5 SEEN /hpf 0-5 [facility] Glucose Ql (U)Ordered By: Edi Paredes on 04-05-2024 Urine glucose detection 1000 mg/dl High Normal [facility] Influenza virus A and B and SARS-CoV-2 (COVID-19) and Respiratory syncytial virus RNAOrdered By: Malachi Paredes on 04-05-2024 SARS-CoV-2 (COVID-19) RNA JUSTIN+probe Ql (Unsp spec) [facility] International normalized rat io (INR) calculationOrdered By: Malachi Paredes on 04-05-2024 International normalized ratio (INR) calculation 1.0 [facility] Ketones Test strip Ql (U)Ord ered By: Malachi Paredes on 04-05-2024 Ketones Ql (U) Negative Negative [facility] Lactic acid measurementOrder ed By: Malachi Paredes on 04-05-2024 Lactic acid measurement 1.3 mmol/L 0.4-2.[address] [facility] Leukocyte esterase Test stri p Ql (U)Ordered By: Malachi Paredes on 04-05-2024 Urine leukocyte esterase detection by dipstick 500 /ul High Negative [facility] Lower GI hemoglobin IA Ql (S tl)Ordered By: Malachi Paredes on 04-05-2024 Stool gastrointestinal hemoglobin detection by immunologic method Positive Abnormal [facility] Microscopic analysis of urin e for red blood cells (RBC)Ordered By: Malachi Paredes on 04-05-2024 Microscopic analysis of urine for red blood cells (RBC) 5-10 SEEN /hpf 0-5 [facility] Mucus LM Ql (Urine sed)Order ed By: Malachi Paredes on 04-05-2024 Mucus Ql (Urine sed) 0 SEEN /hpf [facility] Mucus detection in urine sediment by light microscopy 0 SEEN /hpf [facility] Nitrite Test strip Ql (U)Ord ered By: Malachi Paredes on 04-05-2024 Nitrite Ql (U) Negative Negative [facility] No Panel InformationOrdered By: Jordan Driscoll on 04-05-2024 LEONEL [facility] Not entered [facility] Cannula [facility] Air bubble in sample [facility] No Panel InformationOrdered By: Malachi Paredes on 04-05-2024 6 U/L Low 15-37 [facility] Oxygen (BldV) [Partial press ure]Ordered By: Jordan Driscoll on 04-05-2024 Venous blood partial pressure of oxygen measurement 138 mmHg High 25-40 [facility] Protein Test strip Ql (U)Ord ered By: Malachi Paredes on 04-05-2024 Protein Ql (U) 30 mg/dl High Negative [facility] Urine protein assay by test strip, semi-quantitative 30 mg/dl High Negative [facility] Prothrombin timeOrdered By: Malachi Paredes on 04-05-2024 PT Coag (PPP) [Time] 13.6 s 11.7-14.9 [facility] Prothrombin time 13.6 SECONDS 11.7-14.9 [facility] Serum globulin measurementOr dered By: Malachi Paredes on 04-05-2024 Globulin (S) [Mass/Vol] 4.0 g/dL 2.2-4.[address] [facility] Serum globulin measurement 4.0 g/dL 2.2-4.2 [facility] Serum or plasma alanine barber otransferase (ALT) measurementOrdered By: Malachi Paredes on 04-05-2024 ALT [Catalytic activity/Vol] 12 U/L Low 16-61 [facility] Serum or plasma albumin yocasta urement (mass/volume)Ordered By: Malachi Paredes on 04-05-2024 Albumin [Mass/Vol] 3.1 g/dL Low 3.2-5.0 [facility] Serum or plasma alkaline justin sphatase measurementOrdered By: Malachi Paredes on 04-05-2024 ALP [Catalytic activity/Vol] 69 U/L 45-117 [facility] Specific gravity (U) [Rel de nsity]Ordered By: Malachi Paredes on 04-05-2024 Urine specific gravity measurement 1.015 1.002-1.030 [facility] Squamous epithelial cells de tection in urine sediment by light microscopyOrdered By: Malachi Paredes on 04-05-2024 Epithelial cells.squamous LM Ql (Urine sed) 0-5 SEEN /hpf 0-5 [facility] Stool gastrointestinal hemog lobin detection by immunologic methodOrdered By: Malachi Paredes on 04-05-2024 Lower GI hemoglobin IA Ql (Stl) Positive Abnormal [facility] Total creatine kinase measur ementOrdered By: Jordan Driscoll on 04-05-2024 Total creatine kinase measurement 31 U/L Low 39-308 [facility] Total proteinOrdered By: Charlie Paredes on 04-05-2024 Protein [Mass/Vol] 7.1 g/dL 6.4-8.2 [facility] Total protein 7.1 g/dL 6.4-8.2 [facility] Troponin IOrdered By: Jordan Driscoll on 04-05-2024 Troponin I 33 pg/mL 3.0-78.0 [facility] Troponin I 33 pg/mL 3.0-78.0 [facility] Urine blood detectionOrdered By: Malachi Paredes on 04-05-2024 Urine blood detection 25 /ul High Negative [facility] Urine clarityOrdered By: Charlie Paredes on 04-05-2024 Clarity (U) Cloudy Clear [facility] Urine color determinationOrd ered By: Malachi Paredes on 04-05-2024 Color (U) Yellow Yellow [facility] Urine cultureOrdered By: Charlie Paredes on 04-05-2024 Bacteria identified Cx Nom (U) Positive Abnormal [facility] Urine culture Positive Abnormal [facility] Urine glucose detectionOrder ed By: Malachi Paredes on 04-05-2024 Glucose Ql (U) 1000 mg/dl High Normal [facility] Urine leukocyte esterase det ection by dipstickOrdered By: Malachi Paredes on 04-05-2024 Leukocyte esterase Test strip Ql (U) 500 /ul High Negative [facility] Urine pHOrdered By: Malachi Paredes on 04-05-2024 pH (U) 6.0 [pH] 5.0 - 8.0 [facility] Urine sediment bacteria coun t by microscopy (number/high power field)Ordered By: Malachi Paredes on 04-05-2024 Bacteria LM.HPF (Urine sed) [#/Area] 1 /[HPF] None Seen [facility] Urine sediment renal epithel ial cell count by microscopy (number/high power field)Ordered By: Malachi Paredes on 04-05-2024 Epithelial cells.renal LM.HPF (Urine sed) [#/Area] 5 /[HPF] 0-5 [facility] Urine sediment yeast count b y microscopy (number/high powered field)Ordered By: Malachi Paredes on 04-05-2024 Yeast LM.HPF (Urine sed) [#/Area] 3 /[HPF] None Seen [facility] Urine specific gravity measu rementOrdered By: Malachi Paredes on 04-05-2024 Specific gravity (U) [Rel density] 1.015 1.002-1.030 [facility] Urine total bilirubin detect ion by test stripOrdered By: Malachi Paredes on 04-05-2024 Urine total bilirubin detection by test strip Negative Negative [facility] Urine urobilinogen measureme ntOrdered By: Malachi Paredes on 04-05-2024 Urobilinogen Ql (U) Normal mg/dl Normal [facility] Urobilinogen Ql (U)Ordered B y: Malachi Paredes on 04-05-2024 Urine urobilinogen measurement Normal mg/dl Normal [facility] Venous blood base excess vasquez surementOrdered By: Jordan Driscoll on 04-05-2024 Base excess Calc (BldV) [Moles/Vol] 0 mmol/L -1.0-3.5 [facility] Venous blood bicarbonate vasquez surementOrdered By: Jordan Driscoll on 04-05-2024 HCO3 (Bld) [Moles/Vol] 25 mmol/L 22- [facility] Venous blood bicarbonate measurement 25 mmol/L - [facility] Venous blood oxygen saturati on measurementOrdered By: Jordan Driscoll on 04-05-2024 Venous blood oxygen saturation measurement 99 % High 50-70 [facility] Venous blood pH measurementO rdered By: Jordan Driscoll on 04-05-2024 pH (BldV) 7.39 [pH] 7.32-7.42 [facility] Venous blood partial pressur e of carbon dioxide measurementOrdered By: Jordan Driscoll on 04-05-2024 CO2 (BldV) [Partial pressure] 41.2 mm[Hg] 41-51 [facility] Venous blood partial pressur e of oxygen measurementOrdered By: Jordan Driscoll on 04-05-2024 Oxygen (BldV) [Partial pressure] 138 mm[Hg] High 25-40 [facility] White blood cell countOrdere d By: Malachi Paredes on 04-05-2024 White blood cell count >100 SEEN /hpf 0-5 [facility] White blood cell count >100 SEEN /hpf 0-5 [facility] Yeast LM.HPF (Urine sed) [#/ Area]Ordered By: Malachi Paredes on 04-05-2024 Urine sediment yeast count by microscopy (number/high powered field) 3+ /hpf None Seen [facility] aPTT Coag (PPP) [Time]Ordere d By: Malachi Paredes on 04-05-2024 Activated partial thromboplastin time (aPTT) in platelet poor plasma by coagulation a 25.4 Seconds 24.1-36.2 [facility] pH (BldV)Ordered By: Jordan avelar on 04-05-2024 Venous blood pH measurement 7.39 7.32-7.42 [facility] pH (U)Ordered By: Malachi Paredes on 04-05-2024 Urine pH 6.0 5.0 - 8.0 [facility] Microorganism identified Cx Nom (Unsp spec)Ordered By: GERA Naik on 03-05-2024 Microbial respiratory culture Pseudomonas aeruginosa Abnormal [facility] [id number]-Lkuyoea DOrdered By: Andre Will on 01-27-2024 41-[id number] D 23.0 ng/mL [facility] Estimated glomerular filtrat ion rate (GFR) AmericanOrdered By: Tobi Zapata on 01-27-2024 Estimated glomerular filtration rate (GFR) 60 mL/min >60 [facility] HbA1c (Bld) [Mass fraction]O rdered By: Donna Will on 01-27-2024 Hemoglobin A1c percentage 9.2 % High 3.8-5.6 [facility] Hemoglobin A1c percentageOrd ered By: Donna Will on 01-27-2024 HbA1c (Bld) [Mass fraction] 9.2 % High 3.8-5.6 [facility] Serum or plasma thyroid stim ulating hormone (TSH) measurement (units/volume)Ordered By: Donna Will on 01-27-2024 TSH Qn 1.880 uIU/mL 0.358-3.740 [facility] TSH QnOrdered By: Donna Garcia hner on 01-27-2024 Serum or plasma thyroid stimulating hormone (TSH) measurement (units/volume) 1.880 uIU/mL 0.358-3.740 [facility] Absolute lymphocyte countOrd ered By: Tobi Zapata on 06-05-2023 Lymphocytes Auto (Unsp spec) [#/Vol] 1.84 10*3/uL 0.83-4.51 [facility] Activated partial thrombopla stin time (aPTT) in platelet poor plasma by coagulation aOrdered By: Tobi Zapata on 06-05-2023 aPTT Coag (PPP) [Time] 26.2 s 24.1-36.2 [facility] Automated lymphocyte count a s percentage of total leukocytesOrdered By: Tobi Zapata on 06-05-2023 Lymphocytes/100 WBC Auto (Unsp spec) 24.6 % 19-41 [facility] Basophil percentageOrdered B y: Tobi Benny on 06-05-2023 Basophil percentage 9.2 g/dL 13.0-16.5 [facility] Basophils (Bld) [#/Vol] 7.5 10*3/uL 4.4-11.0 [facility] Basophils (Bld) [#/Vol] 4.6 10*3/uL 2.0-7.7 [facility] Basophils/100 WBC (Bld) 61.9 % 47-[address] [facility] Basophils/100 WBC (Bld) 10.2 % 0-[address] [facility] Basophils/100 WBC (Bld) 2.0 % 0-[address] [facility] Basophils/100 WBC (Bld) 0.4 % 0-[address] [facility] Determination of erythrocyte mean corpuscular volume (MCV)Ordered By: Tobi Zapata on 06-05-2023 MCV (RBC) [Entitic vol] 95.9 fL 80-[address] [facility] Erythrocyte distribution wid th ratioOrdered By: Tobi Zapata on 06-05-2023 Erythrocyte distribution width (RBC) [Ratio] 17.9 % 11.6-14.6 [facility] Erythrocyte distribution wid th standard deviationOrdered By: Tobi Zapata on 06-05-2023 Erythrocyte distribution width (RBC) [Entitic vol] 61.8 fL 35.1-43.9 [facility] Hematocrit Auto (Bld) [Volum e fraction]Ordered By: Tobi Zapata on 06-05-2023 Hematocrit (Bld) [Volume fraction] 30.5 % 40-54 [facility] Immature granulocytes/100 WB C Auto (Bld)Ordered By: Tobi Zapata on 06-05-2023 Immature granulocytes/100 WBC (Bld) 0.900 % 0.0-0.9 [facility] No Panel InformationOrdered By: Tobi Zapata on 06-05-2023 28.9 pg 27.0-32.0 [facility] 30.2 g/dL 32-36 [facility] 242 K/mm3 150-450 [facility] 11.1 fl 6.2-12.0 [facility] 0.4 % 0-5 [facility] 14.1 SECONDS 11.7-14.9 [facility] 1.1 [facility] RBC Auto (Bld) [#/Vol]Ordere d By: Tobi Zapata on 06-05-2023 RBC (Bld) [#/Vol] 3.18 10*6/uL 4.6-6.2 [facility] Absolute lymphocyte countOrd ered By: Tobi Zapata on 05-28-2023 Lymphocytes Auto (Unsp spec) [#/Vol] 1.41 10*3/uL 0.83-4.51 [facility] Automated lymphocyte count a s percentage of total leukocytesOrdered By: Tobi Zapata on 05-28-2023 Lymphocytes/100 WBC Auto (Unsp spec) 19.1 % 19-41 [facility] Basophil percentageOrdered B y: Tobi Zapata on 05-28-2023 Basophil percentage 8.5 g/dL 13.0-16.5 [facility] Basophil percentage 231 mg/dL 74-106 [facility] Basophil percentage 6.5 g/dL 6.4-8.2 [facility] Basophil percentage 0.50 mg/dL 0.20-1.00 [facility] Basophil percentage 141 mmol/L 136-145 [facility] Basophil percentage 4.6 mmol/L 3.5-5.1 [facility] Basophil percentage 107 mmol/L 98-107 [facility] Basophil percentage 201 U/L 87-241 [facility] Basophils (Bld) [#/Vol] 7.4 10*3/uL 4.4-11.0 [facility] Basophils (Bld) [#/Vol] 4.8 10*3/uL 2.0-7.7 [facility] Basophils/100 WBC (Bld) 65.0 % 47-[address] [facility] Basophils/100 WBC (Bld) 10.2 % 0-[address] [facility] Basophils/100 WBC (Bld) 3.8 % 0-[address] [facility] Basophils/100 WBC (Bld) 0.5 % 0-[address] [facility] Carcinoembryonic Ag [Mass/Vo l]Ordered By: Tobi Zapata on 05-28-2023 Serum or plasma carcinoembryonic antigen measurement (mass/volume) 3.4 ng/mL 0.0-4.7 [facility] Deamidated gliadin IgA antib lashon assayOrdered By: oTbi Zapata on 05-28-2023 Deamidated gliadin IgA antibody assay 3 units 0-19 [facility] Deamidated gliadin IgG antib lashon assayOrdered By: Tobi Zapata on 05-28-2023 Deamidated gliadin IgG antibody assay 2 units 0-19 [facility] Determination of erythrocyte mean corpuscular volume (MCV)Ordered By: Tobi Zapata on 05-28-2023 MCV (RBC) [Entitic vol] 95.3 fL 80-[address] [facility] Endomysial IgA antibody assa yOrdered By: Tobi Zapata on 05-28-2023 Endomysial IgA antibody assay Negative Negative [facility] Erythrocyte distribution wid th ratioOrdered By: Tobi Zapata on 05-28-2023 Erythrocyte distribution width (RBC) [Ratio] 17.4 % 11.6-14.6 [facility] Erythrocyte distribution wid th standard deviationOrdered By: Tobi Zapata on 05-28-2023 Erythrocyte distribution width (RBC) [Entitic vol] 59.6 fL 35.1-43.9 [facility] Erythrocyte sedimentation ra teOrdered By: Tobi Zapata on 05-28-2023 ESR (Bld) [Velocity] 11 mm/h 0-20 [facility] HaptoglobinOrdered By: Stephen Zapata on 05-28-2023 Haptoglobin 150 mg/dL 34-355 [facility] Hematocrit Auto (Bld) [Volum e fraction]Ordered By: Tobi Zapata on 05-28-2023 Hematocrit (Bld) [Volume fraction] 28.5 % 40-54 [facility] Hemoglobin in reticulocytes (mass per reticulocyte)Ordered By: Tobi Zapata on 05-28-2023 Hemoglobin (Reticulocytes) [Entitic mass] 29.1 pg 30-35 [facility] Immature granulocytes/100 WB C Auto (Bld)Ordered By: Tobi Zapata on 05-28-2023 Immature granulocytes/100 WBC (Bld) 1.400 % 0.0-0.9 [facility] Iron measurement (mass/mass) Ordered By: Tobi Zapata on 05-28-2023 Iron (Unsp spec) [Mass/Mass] 43 ug/dL 65-175 [facility] No Panel InformationOrdered By: Tobi Zapata on 05-28-2023 28.4 pg 27.0-32.0 [facility] 29.8 g/dL 32-36 [facility] 210 K/mm3 150-450 [facility] 11.1 fl 6.2-12.0 [facility] 0 % 0-5 [facility] 31.50 % 3.00-15.90 [facility] 40 mL/min >60 [facility] 48 mL/min >60 [facility] 46.00 ml/min [facility] 18.5 RATIO 10-20 [facility] 3.2 g/dL 2.2-4.2 [facility] 1.0 RATIO 0.9-2.4 [facility] 71 U/L 45-117 [facility] 23 U/L 16-61 [facility] 29.0 mmol/L 21.0-32.0 [facility] 7.35 mg/L 0.0-3.0 [facility] 285 ug/dL 250-450 [facility] 28 ng/mL 26-388 [facility] RBC Auto (Bld) [#/Vol]Ordere d By: Tobi Zapata on 05-28-2023 RBC (Bld) [#/Vol] 2.99 10*6/uL 4.6-6.2 [facility] Reticulocytes Auto (Bld) [#/ Vol]Ordered By: Tobi Zapata on 05-28-2023 Reticulocytes/100 RBC (Bld) 3.18 % 0.5-1.5 [facility] Serum immunoglobulin A measu rementOrdered By: Tobi Zapata on 05-28-2023 Serum immunoglobulin A measurement 12 mg/dL Low 61-437 [facility] Serum or plasma calcium yocasta urement (mass/volume)Ordered By: Tobi Zapata on 05-28-2023 Calcium [Mass/Vol] 8.5 mg/dL 8.5-10.1 [facility] Serum or plasma carcinoembry onic antigen measurement (mass/volume)Ordered By: Tobi Zapata on 05-28-2023 Carcinoembryonic Ag [Mass/Vol] 3.4 ng/mL 0.0-4.7 [facility] Serum or plasma creatinine m easurement (mass/volume)Ordered By: Tobi Zapata on 05-28-2023 Creatinine [Mass/Vol] 1.78 mg/dL 0.70-1.30 [facility] Serum or plasma iron saturat ion measurement (mass fraction)Ordered By: Tobi Zapata on 05-28-2023 Iron saturation [Mass fraction] 15.1 % 15.0-55.0 [facility] Serum or plasma urea nitroge n measurement (mass/volume)Ordered By: Tobi Zapata on 05-28-2023 Urea nitrogen [Mass/Vol] 33 mg/dL 7-18 [facility] Serum tissue transglutaminas e (tTG) IgA antibody assay (units/volume)Ordered By: Tobi Zapata on 05-28-2023 Serum tissue transglutaminase (tTG) IgA antibody assay (units/volume) <2 U/mL 0-5 [facility] Serum tissue transglutaminas e IgA antibody assay (units/volume)Ordered By: Tobi Zapata on 05-28-2023 tTG IgA Qn (S) <2 U/mL 0-3 [facility] Thin prep Papanicolaou smear with manual screeningOrdered By: Tobi Zapata on 05-28-2023 Thin prep Papanicolaou smear with manual screening 3.3 g/dL 3.2-5.0 [facility] Thin prep Papanicolaou smear with manual screening 13 U/L 15-37 [facility] Thin prep Papanicolaou smear with manual screening 5 5-15 [facility] No Panel InformationOrdered By: Jennifer Galdamez on 05-12-2023 523.9 pg/mL 0-100 [facility] Absolute lymphocyte countOrd ered By: Donna Will on 05-07-2023 Lymphocytes Auto (Unsp spec) [#/Vol] 0.96 10*3/uL 0.83-4.51 [facility] Automated lymphocyte count a s percentage of total leukocytesOrdered By: Donna Will on 05-07-2023 Lymphocytes/100 WBC Auto (Unsp spec) 10.6 % 19-41 [facility] Basophil percentageOrdered B y: Donna Will on 05-07-2023 Basophil percentage 7.4 g/dL 13.0-16.5 [facility] Basophil percentage 198 mg/dL 74-106 [facility] Basophil percentage 142 mmol/L 136-145 [facility] Basophil percentage 4.3 mmol/L 3.5-5.1 [facility] Basophil percentage 107 mmol/L 98-107 [facility] Basophils (Bld) [#/Vol] 9.1 10*3/uL 4.4-11.0 [facility] Basophils (Bld) [#/Vol] 7.0 10*3/uL 2.0-7.7 [facility] Basophils/100 WBC (Bld) 76.9 % 47-[address] [facility] Basophils/100 WBC (Bld) 8.5 % 0-[address] [facility] Basophils/100 WBC (Bld) 2.3 % 0-[address] [facility] Basophils/100 WBC (Bld) 0.3 % 0-[address] [facility] Determination of erythrocyte mean corpuscular volume (MCV)Ordered By: Donna Will on 05-07-2023 MCV (RBC) [Entitic vol] 96.6 fL 80-[address] [facility] Erythrocyte distribution wid th ratioOrdered By: Donna Will on 05-07-2023 Erythrocyte distribution width (RBC) [Ratio] 17.1 % 11.6-14.6 [facility] Erythrocyte distribution wid th standard deviationOrdered By: Donna Will on 05-07-2023 Erythrocyte distribution width (RBC) [Entitic vol] 60.3 fL 35.1-43.9 [facility] Hematocrit Auto (Bld) [Volum e fraction]Ordered By: Donna Will on 05-07-2023 Hematocrit (Bld) [Volume fraction] 25.2 % 40-54 [facility] Immature granulocytes/100 WB C Auto (Bld)Ordered By: Donna Will on 05-07-2023 Immature granulocytes/100 WBC (Bld) 1.400 % 0.0-0.9 [facility] No Panel InformationOrdered By: Donna Will on 05-07-2023 28.4 pg 27.0-32.0 [facility] 29.4 g/dL 32-36 [facility] 301 K/mm3 150-450 [facility] 10.9 fl 6.2-12.0 [facility] 0 % 0-5 [facility] 41 mL/min >60 [facility] 50 mL/min >60 [facility] 23.6 RATIO 10-20 [facility] 29.0 mmol/L 21.0-32.0 [facility] RBC Auto (Bld) [#/Vol]Ordere d By: Donna Will on 05-07-2023 RBC (Bld) [#/Vol] 2.61 10*6/uL 4.6-6.2 [facility] Serum or plasma calcium yocasta urement (mass/volume)Ordered By: Donna Will on 05-07-2023 Calcium [Mass/Vol] 8.9 mg/dL 8.5-10.1 [facility] Serum or plasma creatinine m easurement (mass/volume)Ordered By: Donna Will on 05-07-2023 Creatinine [Mass/Vol] 1.74 mg/dL 0.70-1.30 [facility] Serum or plasma urea nitroge n measurement (mass/volume)Ordered By: Donna Will on 05-07-2023 Urea nitrogen [Mass/Vol] 41 mg/dL 7-18 [facility] Thin prep Papanicolaou smear with manual screeningOrdered By: Donna Will on 05-07-2023 Thin prep Papanicolaou smear with manual screening 6 5-15 [facility] Absolute lymphocyte countOrd ered By: Tobi Zapaat on 04-25-2023 Lymphocytes Auto (Unsp spec) [#/Vol] 1.48 10*3/uL 0.83-4.51 [facility] Automated lymphocyte count a s percentage of total leukocytesOrdered By: Tobi Zapata on 04-25-2023 Lymphocytes/100 WBC Auto (Unsp spec) 21.7 % 19-41 [facility] Basophil percentageOrdered B y: Tobi Zapata on 04-25-2023 Basophil percentage 7.6 g/dL 13.0-16.5 [facility] Basophil percentage 192 mg/dL 74-106 [facility] Basophil percentage 6.0 g/dL 6.4-8.2 [facility] Basophil percentage 0.30 mg/dL 0.20-1.00 [facility] Basophil percentage 143 mmol/L 136-145 [facility] Basophil percentage 4.1 mmol/L 3.5-5.1 [facility] Basophil percentage 111 mmol/L 98-107 [facility] Basophil percentage 163 U/L 87-241 [facility] Basophils (Bld) [#/Vol] 6.8 10*3/uL 4.4-11.0 [facility] Basophils (Bld) [#/Vol] 4.0 10*3/uL 2.0-7.7 [facility] Basophils/100 WBC (Bld) 59.2 % 47-[address] [facility] Basophils/100 WBC (Bld) 11.0 % 0-[address] [facility] Basophils/100 WBC (Bld) 6.4 % 0-[address] [facility] Basophils/100 WBC (Bld) 0.7 % 0-[address] [facility] Determination of erythrocyte mean corpuscular volume (MCV)Ordered By: Tobi Zapata on 04-25-2023 MCV (RBC) [Entitic vol] 94.8 fL 80-94 [facility] Erythrocyte distribution wid th ratioOrdered By: Tobi Zapata on 04-25-2023 Erythrocyte distribution width (RBC) [Ratio] 17.4 % 11.6-14.6 [facility] Erythrocyte distribution wid th standard deviationOrdered By: Tobi Zapata on 04-25-2023 Erythrocyte distribution width (RBC) [Entitic vol] 60.3 fL 35.1-43.9 [facility] Hematocrit Auto (Bld) [Volum e fraction]Ordered By: Tobi Zapata on 04-25-2023 Hematocrit (Bld) [Volume fraction] 25.5 % 40-54 [facility] Immature granulocytes/100 WB C Auto (Bld)Ordered By: Tobi Zapata on 04-25-2023 Immature granulocytes/100 WBC (Bld) 1.000 % 0.0-0.9 [facility] Iron measurement (mass/mass) Ordered By: Tobi Zapata on 04-25-2023 Iron (Unsp spec) [Mass/Mass] 28 ug/dL 65-175 [facility] No Panel InformationOrdered By: Tobi Zapata on 04-25-2023 28.3 pg 27.0-32.0 [facility] 29.8 g/dL 32-36 [facility] 269 K/mm3 150-450 [facility] 11.1 fl 6.2-12.0 [facility] 0 % 0-5 [facility] 53 mL/min >60 [facility] 64 mL/min >60 [facility] 19.3 RATIO 10-20 [facility] 3.3 g/dL 2.2-4.2 [facility] 0.8 RATIO 0.9-2.4 [facility] 96 U/L 45-117 [facility] 13 U/L 16-61 [facility] 31.0 mmol/L 21.0-32.0 [facility] 212 ug/dL 250-450 [facility] 57 ng/mL 26-388 [facility] RBC Auto (Bld) [#/Vol]Ordere d By: Tobi Zapata on 04-25-2023 RBC (Bld) [#/Vol] 2.69 10*6/uL 4.6-6.2 [facility] Serum or plasma calcium yocasta urement (mass/volume)Ordered By: Tobi Zapata on 04-25-2023 Calcium [Mass/Vol] 8.6 mg/dL 8.5-10.1 [facility] Serum or plasma creatinine m easurement (mass/volume)Ordered By: Tobi Zapata on 04-25-2023 Creatinine [Mass/Vol] 1.40 mg/dL 0.70-1.30 [facility] Serum or plasma iron saturat ion measurement (mass fraction)Ordered By: Tobi Zapata on 04-25-2023 Iron saturation [Mass fraction] 13.2 % 15.0-55.0 [facility] Serum or plasma urea nitroge n measurement (mass/volume)Ordered By: Tobi Zapata on 04-25-2023 Urea nitrogen [Mass/Vol] 27 mg/dL 7-18 [facility] Thin prep Papanicolaou smear with manual screeningOrdered By: Tobi Zapata on 04-25-2023 Thin prep Papanicolaou smear with manual screening 2.7 g/dL 3.2-5.0 [facility] Thin prep Papanicolaou smear with manual screening 6 U/L 15-37 [facility] Thin prep Papanicolaou smear with manual screening 1 5-15 [facility] Absolute lymphocyte countOrd ered By: Donna Will on 04-17-2023 Lymphocytes Auto (Unsp spec) [#/Vol] 2.00 10*3/uL 0.83-4.51 [facility] Automated lymphocyte count a s percentage of total leukocytesOrdered By: Donna Will on 04-17-2023 Lymphocytes/100 WBC Auto (Unsp spec) 25.3 % 19-41 [facility] Basophil percentageOrdered B y: Donna Will on 04-17-2023 Basophil percentage 7.9 g/dL 13.0-16.5 [facility] Basophils (Bld) [#/Vol] 7.9 10*3/uL 4.4-11.0 [facility] Basophils (Bld) [#/Vol] 4.6 10*3/uL 2.0-7.7 [facility] Basophils/100 WBC (Bld) 58.4 % 47-[address] [facility] Basophils/100 WBC (Bld) 9.4 % 0-[address] [facility] Basophils/100 WBC (Bld) 4.6 % 0-[address] [facility] Basophils/100 WBC (Bld) 0.8 % 0-[address] [facility] Determination of erythrocyte mean corpuscular volume (MCV)Ordered By: Donna Will on 04-17-2023 MCV (RBC) [Entitic vol] 96.8 fL 80-[address] [facility] Erythrocyte distribution wid th ratioOrdered By: Donna Will on 04-17-2023 Erythrocyte distribution width (RBC) [Ratio] 17.4 % 11.6-14.6 [facility] Erythrocyte distribution wid th standard deviationOrdered By: Donna Will on 04-17-2023 Erythrocyte distribution width (RBC) [Entitic vol] 61.5 fL 35.1-43.9 [facility] Hematocrit Auto (Bld) [Volum e fraction]Ordered By: Donna Will on 04-17-2023 Hematocrit (Bld) [Volume fraction] 26.9 % 40-54 [facility] Immature granulocytes/100 WB C Auto (Bld)Ordered By: Donna Will on 04-17-2023 Immature granulocytes/100 WBC (Bld) 1.500 % 0.0-0.9 [facility] Iron measurement (mass/mass) Ordered By: Donna Will on 04-17-2023 Iron (Unsp spec) [Mass/Mass] 49 ug/dL 65-175 [facility] No Panel InformationOrdered By: Donna Will on 04-17-2023 28.4 pg 27.0-32.0 [facility] 29.4 g/dL 32-36 [facility] 338 K/mm3 150-450 [facility] 10.9 fl 6.2-12.0 [facility] 0 % 0-5 [facility] 238 ug/dL 250-450 [facility] RBC Auto (Bld) [#/Vol]Ordere d By: Donna Will on 04-17-2023 RBC (Bld) [#/Vol] 2.78 10*6/uL 4.6-6.2 [facility] Serum or plasma iron saturat ion measurement (mass fraction)Ordered By: Donna Will on 04-17-2023 Iron saturation [Mass fraction] 20.6 % 15.0-55.0 [facility] Basophil percentageOrdered B y: Donna Will on 04-03-2023 Basophil percentage 146 mg/dL 74-106 [facility] Basophil percentage 141 mmol/L 136-145 [facility] Basophil percentage 4.2 mmol/L 3.5-5.1 [facility] Basophil percentage 108 mmol/L 98-107 [facility] No Panel InformationOrdered By: Donna Will on 04-03-2023 43 mL/min >60 [facility] 52 mL/min >60 [facility] 12.7 RATIO 10-20 [facility] 1.6 mg/dL 1.6-2.6 [facility] 30.0 mmol/L 21.0-32.0 [facility] Serum or plasma calcium yocasta urement (mass/volume)Ordered By: Donna Will on 04-03-2023 Calcium [Mass/Vol] 8.0 mg/dL 8.5-10.1 [facility] Serum or plasma creatinine m easurement (mass/volume)Ordered By: Donna Will on 04-03-2023 Creatinine [Mass/Vol] 1.66 mg/dL 0.70-1.30 [facility] Serum or plasma urea nitroge n measurement (mass/volume)Ordered By: Donna Will on 04-03-2023 Urea nitrogen [Mass/Vol] 21 mg/dL 7-18 [facility] Thin prep Papanicolaou smear with manual screeningOrdered By: Donna Will on 04-03-2023 Thin prep Papanicolaou smear with manual screening 3 5-15 [facility] 36on 03-21-2023 36 S: Pt's calling [facility] Nurse Advice Line regarding prescription problem. B: Pt was discharged today from [facility]. A: states [facility] insurance will not cover pt's insulin that was prescribed at discharge. wants to know why, and also what he can take instead. R: Advised that she has reached the [facility] Nurse Advice Line, and to please call the other number on her card regarding prescriptions. Caller ended call. Reason for Disposition [1] Follow-up call to recent contact AND [2] information only call, no triage required Protocols used: Information Only Call - [id number] Thin prep Papanicolaou smear with manual screeningOrdered By: Clive Sharp on 03-21-2023 Thin prep Papanicolaou smear with manual screening 171 mg/dL 74-106 [facility] Absolute lymphocyte countOrd ered By: Anthony Singleton on 03-19-2023 Lymphocytes Auto (Unsp spec) [#/Vol] 1.19 10*3/uL 0.83-4.51 [facility] Automated lymphocyte count a s percentage of total leukocytesOrdered By: Anthony Singleton on 03-19-2023 Lymphocytes/100 WBC Auto (Unsp spec) 11.9 % 19-41 [facility] Basophil percentageOrdered B y: Anthony Singleton on 03-19-2023 Basophil percentage 8.6 g/dL 13.0-16.5 [facility] Basophil percentage 120 mg/dL 74-106 [facility] Basophil percentage 142 mmol/L 136-145 [facility] Basophil percentage 4.1 mmol/L 3.5-5.1 [facility] Basophil percentage 107 mmol/L 98-107 [facility] Basophils (Bld) [#/Vol] 10.0 10*3/uL 4.4-11.0 [facility] Basophils (Bld) [#/Vol] 7.6 10*3/uL 2.0-7.7 [facility] Basophils/100 WBC (Bld) 76.0 % 47-[address] [facility] Basophils/100 WBC (Bld) 7.1 % 0-[address] [facility] Basophils/100 WBC (Bld) 2.8 % 0-[address] [facility] Basophils/100 WBC (Bld) 0.3 % 0-[address] [facility] Determination of erythrocyte mean corpuscular volume (MCV)Ordered By: Anthony Singleton on 03-19-2023 MCV (RBC) [Entitic vol] 99.0 fL 80-[address] [facility] Erythrocyte distribution wid th ratioOrdered By: Anthony Singleton on 03-19-2023 Erythrocyte distribution width (RBC) [Ratio] 19.3 % 11.6-14.6 [facility] Erythrocyte distribution wid th standard deviationOrdered By: Anthony Singleton on 03-19-2023 Erythrocyte distribution width (RBC) [Entitic vol] 62.5 fL 35.1-43.9 [facility] Hematocrit Auto (Bld) [Volum e fraction]Ordered By: Anthony Singleton on 03-19-2023 Hematocrit (Bld) [Volume fraction] 29.0 % 40-54 [facility] Immature granulocytes/100 WB C Auto (Bld)Ordered By: Anthony Singleton on 03-19-2023 Immature granulocytes/100 WBC (Bld) 1.900 % 0.0-0.9 [facility] No Panel InformationOrdered By: Anthony Singleton on 03-19-2023 29.4 pg 27.0-32.0 [facility] 29.7 g/dL 32-36 [facility] 166 K/mm3 150-450 [facility] 0.6 % 0-5 [facility] 28 mL/min >60 [facility] 34 mL/min >60 [facility] 32.04 ml/min [facility] 30.5 RATIO 10-20 [facility] 32.0 mmol/L 21.0-32.0 [facility] Platelet mean volume Edmundo-Ec ker (Bld) [Entitic vol]Ordered By: Anthony Singleton on 03-19-2023 Platelet mean volume (Bld) [Entitic vol] 11.4 fL 6.2-12.0 [facility] RBC Auto (Bld) [#/Vol]Ordere d By: Anthony Singleton on 03-19-2023 RBC (Bld) [#/Vol] 2.93 10*6/uL 4.6-6.2 [facility] Serum or plasma calcium yocasta urement (mass/volume)Ordered By: Anthony Singleton on 03-19-2023 Calcium [Mass/Vol] 7.7 mg/dL 8.5-10.1 [facility] Serum or plasma creatinine m easurement (mass/volume)Ordered By: Anthony Singleton on 03-19-2023 Creatinine [Mass/Vol] 2.43 mg/dL 0.70-1.30 [facility] Serum or plasma urea nitroge n measurement (mass/volume)Ordered By: Anthony Singleton on 03-19-2023 Urea nitrogen [Mass/Vol] 74 mg/dL 7-18 [facility] Thin prep Papanicolaou smear with manual screeningOrdered By: Anthony Singleton on 03-19-2023 Thin prep Papanicolaou smear with manual screening 3 5-15 [facility] Anaerobic cultureOrdered By: Nadira Ricks on 03-18-2023 Bacteria identified Anaer cx Nom (Unsp spec) No growth in 5 days. [facility] Bacteria identified Anaer cx Nom (Unsp spec) No growth in 5 days. [facility] Body fluid appearanceOrdered By: Nadira Ricks on 03-18-2023 Appearance (Body fld) CLEAR [facility] Body fluid color determinati onOrdered By: Nadira Ricks on 03-18-2023 Color (Body fld) YELLOW [facility] Body fluid lactate dehydroge nase measurement (enzymatic activity/volume) by pyruvateOrdered By: Nadira Ricks on 03-18-2023 LDH Pyruvate to lactate reaction (Body fld) [Catalytic activity/Vol] 61 Units/L Not Establ. [facility] Body fluid leukocytes count (number/volume)Ordered By: Nadira Ricks on 03-18-2023 WBC (Body fld) [#/Vol] 0.218 10*3/uL [facility] Body fluid lymphocytes/100 l eukocytesOrdered By: Nadira Ricks on 03-18-2023 Lymphocytes/100 WBC (Body fld) 19 % [facility] Body fluid mesothelial cell percentageOrdered By: Nadira Ricks on 03-18-2023 Mesothelial cells/100 WBC (Body fld) 0 % [facility] Body fluid mononuclear cell percentageOrdered By: Nadira Ricks on 03-18-2023 Mononuclear cells/100 WBC (Body fld) 65.6 % [facility] Body fluid other cell count as percentage of leukocytesOrdered By: Nadira Ricks on 03-18-2023 Other cells/100 WBC (Body fld) 1 % [facility] Body fluid polymorphonuclear leukocyte countOrdered By: Nadira Ricks on 03-18-2023 Polymorphonuclear cells (Body fld) [#/Vol] 0.075 10^3/uL [facility] Body fluid protein measureme nt (mass/volume)Ordered By: Nadira Ricks on 03-18-2023 Protein (Body fld) [Mass/Vol] 1.1 g/dL Not Establ. [facility] Body fluid segmented neutrop hils count (number/volume)Ordered By: Nadira Ricks on 03-18-2023 Segmented neutrophils (Body fld) [#/Vol] 60 % [facility] Body fluid total cell countO rdered By: Nadira Ricks on 03-18-2023 Cells Counted Total (Body fld) [#] 0.257 10^3/ul [facility] Cytology report of Body flui d Cyto stainOrdered By: Nadira Ricks on 03-18-2023 Cytology report Cyto stain Doc (Body fld) SEE PATHOLOGY REPORT [facility] Gram stain for investigation of transfusion reactionOrdered By: Nadira Ricks on 03-18-2023 Microscopic observation Gram stain Nom (Unsp spec) [facility] Microscopic observation Gram stain Nom (Unsp spec) [facility] No Panel InformationOrdered By: Nadira Ricks on 03-18-2023 35 /mm3 [facility] 34.4 % [facility] 0.143 10^3/uL [facility] SEE COMMENT [facility] 196 mg/dL 40-70 [facility] Culture exhibits no growth. [facility] Culture exhibits no growth. [facility] Pathologist interpretation o f Body fluid testsOrdered By: Nadira Ricks on 03-18-2023 Pathologist interpretation (Body fld) [Interp] Reviewed [facility] Specimen source identificati on of body fluidOrdered By: Nadira Ricks on 03-18-2023 Specimen source Nom (Body fld) THORACENTESIS [facility] Thin prep Papanicolaou smear with manual screeningOrdered By: Nadira Ricks on 03-18-2023 Thin prep Papanicolaou smear with manual screening 20 % [facility] Basophil percentageOrdered B y: Nadira Ricks on 03-17-2023 Basophil percentage 5.3 g/dL 6.4-8.2 [facility] Basophil percentage 4.1 mg/dL 2.5-4.9 [facility] Basophil percentage 0.60 mg/dL 0.20-1.00 [facility] Basophil percentage 232 U/L 87-241 [facility] No Panel InformationOrdered By: Anthony Singleton on 03-17-2023 Negative Negative [facility] 650.8 pg/mL 0-100 [facility] No Panel InformationOrdered By: Nadira Ricks on 03-17-2023 2.4 g/dL 2.2-4.2 [facility] 1.2 RATIO 0.9-2.4 [facility] 61 U/L 45-117 [facility] 18 U/L 16-61 [facility] 2.1 mg/dL 1.6-2.6 [facility] 984 pg/mL 3.0-78.0 [facility] Serum procalcitonin measurem entOrdered By: Anthony Singleton on 03-17-2023 Procalcitonin [Mass/Vol] 0.28 ng/mL 0.00-0.09 [facility] Thin prep Papanicolaou smear with manual screeningOrdered By: Nadira Ricks on 03-17-2023 Thin prep Papanicolaou smear with manual screening 2.9 g/dL 3.2-5.0 [facility] Thin prep Papanicolaou smear with manual screening 11 U/L 15-37 [facility] Absolute lymphocyte countOrd ered By: Eva Marie on 03-16-2023 Lymphocytes Auto (Unsp spec) [#/Vol] 1.54 10*3/uL 0.83-4.51 [facility] Activated partial thrombopla stin time (aPTT) in platelet poor plasma by coagulation aOrdered By: Eva Marie on 03-16-2023 aPTT Coag (PPP) [Time] 24.5 s 24.1-36.2 [facility] Assessment of wrist artery p atency prior to arterial punctureOrdered By: Nadira Ricks on 03-16-2023 Arterial patency Wrist artery --pre arterial puncture Positive [facility] Automated lymphocyte count a s percentage of total leukocytesOrdered By: Eva Marie on 03-16-2023 Lymphocytes/100 WBC Auto (Unsp spec) 7.3 % 19-41 [facility] Base excessOrdered By: Isak Ricks on 03-16-2023 Base excess Calc (BldV) [Moles/Vol] 5 mmol/L -2-2 [facility] Base excessOrdered By: Rigo Marie on 03-16-2023 Base excess Calc (BldV) [Moles/Vol] 5 mmol/L -1.0-3.5 [facility] Basophil percentageOrdered B y: Nadira Ricks on 03-16-2023 Basophil percentage 32 mmol/L [facility] Basophils/100 WBC (Bld) 97 % 95-[address] [facility] Basophil percentageOrdered B y: Eva Marie on 03-16-2023 Basophil percentage 1.8 mmol/L 0.4-2.0 [facility] Basophil percentage 50-100 SEEN /hpf 0-5 [facility] Basophil percentage 5.0 g/dL 13.0-16.5 [facility] Basophil percentage 817 mg/dL 74-106 [facility] Basophil percentage 5.2 g/dL 6.4-8.2 [facility] Basophil percentage 0.60 mg/dL 0.20-1.00 [facility] Basophil percentage 134 mmol/L 136-145 [facility] Basophil percentage 4.7 mmol/L 3.5-5.1 [facility] Basophil percentage 94 mmol/L 98-107 [facility] Basophil percentage 4.5 mmol/L 0.4-2.0 [facility] Basophils (Bld) [#/Vol] 21.0 10*3/uL 4.4-11.0 [facility] Basophils (Bld) [#/Vol] 17.3 10*3/uL 2.0-7.7 [facility] Basophils/100 WBC (Bld) 82.4 % 47-[address] [facility] Basophils/100 WBC (Bld) 5.5 % 0-[address] [facility] Basophils/100 WBC (Bld) 0.5 % 0-[address] [facility] Basophils/100 WBC (Bld) 0.2 % 0-[address] [facility] Bilirubin Test strip Ql (U)O rdered By: Eva Marie on 03-16-2023 Bilirubin Ql (U) Negative Negative [facility] Blood manual differential co mment interpretation (narrative result)Ordered By: Eva Marie on 03-16-2023 Manual differential comment Sohan (Bld) [Interp] SCANNED [facility] CO2 (BldV) [Moles/Vol]Ordere d By: Eva Marie on 03-16-2023 CO2 [Moles/Vol] 31 mmol/L 23-33 [facility] Culture, urineOrdered By: Henrique Marie on 03-16-2023 Culture, urine Positive [facility] Determination of erythrocyte mean corpuscular volume (MCV)Ordered By: Eva Marie on 03-16-2023 MCV (RBC) [Entitic vol] 100.0 fL 80-[address] [facility] Erythrocyte distribution wid th ratioOrdered By: Eva Marie on 03-16-2023 Erythrocyte distribution width (RBC) [Ratio] 20.1 % 11.6-14.6 [facility] Erythrocyte distribution wid th standard deviationOrdered By: Eva Marie on 03-16-2023 Erythrocyte distribution width (RBC) [Entitic vol] 63.7 fL 35.1-43.9 [facility] Hematocrit Auto (Bld) [Volum e fraction]Ordered By: Eva Marie on 03-16-2023 Hematocrit (Bld) [Volume fraction] 16.6 % 40-54 [facility] Hypochromatic red blood cell detectionOrdered By: Eva Marie on 03-16-2023 Hypochromia Ql (Bld) 1+ [facility] Immature granulocytes/100 WB C Auto (Bld)Ordered By: Eva Marie on 03-16-2023 Immature granulocytes/100 WBC (Bld) 4.100 % 0.0-0.9 [facility] International normalized rat io (INR) calculationOrdered By: Eva Marie on 03-16-2023 INR Coag (PPP) [Relative time] 1.5 {INR} [facility] Ketones Test strip Ql (U)Ord ered By: Eva Marie on 03-16-2023 Ketones Ql (U) Negative Negative [facility] Laboratory - Chemistry and C hemistry - challengeOrdered By: Nadira Ricks on 03-16-2023 CO2 (Dial fld) [Partial pressure] 48.9 mmHg 35-45 [facility] Macrocytes detectionOrdered By: Eva Marie on 03-16-2023 Macrocytes Ql (Bld) 1+ [facility] Measurement, pHOrdered By: Angela Ricks on 03-16-2023 pH (Unsp spec) 7.40 [pH] 7.35-7.45 [facility] Mucus LM Ql (Urine sed)Order ed By: Eva Marie on 03-16-2023 Mucus Ql (Urine sed) 0 SEEN /hpf [facility] Nitrite Test strip Ql (U)Ord ered By: Eva Marie on 03-16-2023 Nitrite Ql (U) Negative Negative [facility] No Panel InformationOrdered By: Nadira Ricks on 03-16-2023 ART [facility] R Radial [facility] Not entered [facility] Cannula [facility] 4.0 [facility] 30.2 mmol/L 22- [facility] No Panel InformationOrdered By: Eva Marie on 03-16-2023 No growth in 5 days. [facility] 0 SEEN /hpf 0-5 [facility] LEONEL [facility] Not entered [facility] Cannula [facility] 4.0 [facility] 30.1 pg 27.0-32.0 [facility] 30.1 g/dL 32-36 [facility] 256 K/mm3 150-450 [facility] 2.1 % 0-5 [facility] 2+ [facility] 18.0 SECONDS 11.7-14.9 [facility] 25 mL/min >60 [facility] 31 mL/min >60 [facility] 29.26 ml/min [facility] 39.8 RATIO 10-20 [facility] 2.4 g/dL 2.2-4.2 [facility] 1.2 RATIO 0.9-2.4 [facility] 37 U/L 39-308 [facility] 435 pg/mL 3.0-78.0 [facility] 61 U/L 45-117 [facility] 19 U/L 16-61 [facility] 30.0 mmol/L 21.0-32.0 [facility] PCO2 venousOrdered By: Rigo Marie on 03-16-2023 CO2 (BldV) [Partial pressure] 49.5 mm[Hg] 41-51 [facility] PO2 venousOrdered By: Eva Marie on 03-16-2023 Oxygen (BldV) [Partial pressure] 35 mm[Hg] 25-40 [facility] Platelet mean volume Edmundo-Ec ker (Bld) [Entitic vol]Ordered By: Eva Marie on 03-16-2023 Platelet mean volume (Bld) [Entitic vol] 12.3 fL 6.2-12.0 [facility] Protein Test strip Ql (U)Ord ered By: Eva Marie on 03-16-2023 Protein Ql (U) 30 mg/dl Negative [facility] RBC Auto (Bld) [#/Vol]Ordere d By: Eva Maire on 03-16-2023 RBC (Bld) [#/Vol] 1.66 10*6/uL 4.6-6.2 [facility] Respiratory measures and Leonel tilator managementOrdered By: Nadira Ricks on 03-16-2023 Oxygen [Partial pressure] in Capillary blood by Transcutaneous O2 monitor 97 mmHG 75-100 [facility] Review by pathologistOrdered By: Eva Marie on 03-16-2023 Pathologist review Sohan (Unsp spec) [Interp] May foll [facility] Pathologist review Sohan (Unsp spec) [Interp] Reviewed [facility] Serum or plasma acetone yocasta urement (mass/volume)Ordered By: Jordan Driscoll on 03-16-2023 Acetone [Mass/Vol] SMALL NEG [facility] Serum or plasma acetone yocasta urement (mass/volume)Ordered By: Eva Marie on 03-16-2023 Acetone [Mass/Vol] Negative NEG [facility] Serum or plasma calcium yocasta urement (mass/volume)Ordered By: Eva Marie on 03-16-2023 Calcium [Mass/Vol] 8.7 mg/dL 8.5-10.1 [facility] Serum or plasma creatinine m easurement (mass/volume)Ordered By: Eva Marie on 03-16-2023 Creatinine [Mass/Vol] 2.64 mg/dL 0.70-1.30 [facility] Serum or plasma urea nitroge n measurement (mass/volume)Ordered By: Eva Marie on 03-16-2023 Urea nitrogen [Mass/Vol] 105 mg/dL 7-18 [facility] Squamous epithelial cells de tection in urine sediment by light microscopyOrdered By: Eva Marie on 03-16-2023 Epithelial cells.squamous LM Ql (Urine sed) 0-5 SEEN /hpf 0-5 [facility] Stool gastrointestinal hemog lobin detection by immunologic methodOrdered By: Eva Marie on 03-16-2023 Stool gastrointestinal hemoglobin detection by immunologic method Positive [facility] Thin prep Papanicolaou smear with manual screeningOrdered By: Eva Marie on 03-16-2023 Thin prep Papanicolaou smear with manual screening 1+ [facility] Thin prep Papanicolaou smear with manual screening 2.8 g/dL 3.2-5.0 [facility] Thin prep Papanicolaou smear with manual screening 7 U/L 15-37 [facility] Thin prep Papanicolaou smear with manual screening 10 5-15 [facility] Thin prep Papanicolaou smear with manual screening > 500 mg/dL 74-106 [facility] Urine blood detectionOrdered By: Eva Marie on 03-16-2023 RBC Ql (U) 25 /ul Negative [facility] Urine clarityOrdered By: Jailene Marie on 03-16-2023 Clarity (U) Clear Clear [facility] Urine color determinationOrd ered By: Eva Marie on 03-16-2023 Color (U) Yellow Yellow [facility] Urine glucose detectionOrder ed By: Eva Marie on 03-16-2023 Glucose Ql (U) 1000 mg/dl Normal [facility] Urine leukocyte esterase det ection by dipstickOrdered By: Eva Marie on 03-16-2023 Leukocyte esterase Test strip Ql (U) 500 /ul Negative [facility] Urine pHOrdered By: Eva gordon on 03-16-2023 pH (U) 6.5 [pH] 5.0 - 8.0 [facility] Urine sediment bacteria coun t by microscopy (number/high power field)Ordered By: Eva Marie on 03-16-2023 Bacteria LM.HPF (Urine sed) [#/Area] 0 /[HPF] None Seen [facility] Urine specific gravity measu rementOrdered By: Eva Marie on 03-16-2023 Specific gravity (U) [Rel density] 1.010 1.002-1.030 [facility] Urine urobilinogen measureme ntOrdered By: Eva Marie on 03-16-2023 Urobilinogen Ql (U) Normal mg/dl Normal [facility] Venous blood bicarbonate vasquez surementOrdered By: Eva Marie on 03-16-2023 HCO3 (BldCoV) [Moles/Vol] 30 mmol/L 22-26 [facility] Venous blood oxygen saturati on (pure mass fraction)Ordered By: Eva Marie on 03-16-2023 SaO2% (BldV) [Pure mass fraction] 65 % 50-70 [facility] Venous blood pH measurementO rdered By: Eva Marie on 03-16-2023 pH (BldV) 7.39 [pH] 7.32-7.42 [facility] Absolute lymphocyte countOrd ered By: Jordan Ortiz on 03-06-2023 Lymphocytes Auto (Unsp spec) [#/Vol] 0.90 10*3/uL 0.83-4.51 [facility] Basophil percentageOrdered B y: Jordan Ortiz on 03-06-2023 Basophil percentage 199 mg/dL 74-106 [facility] Basophil percentage 2.6 mg/dL 2.5-4.9 [facility] Basophil percentage 142 mmol/L 136-145 [facility] Basophil percentage 4.1 mmol/L 3.5-5.1 [facility] Basophil percentage 103 mmol/L 98-107 [facility] Basophils (Bld) [#/Vol] 10.9 10*3/uL 4.4-11.0 [facility] Basophils (Bld) [#/Vol] 8.7 10*3/uL 2.0-7.7 [facility] Basophils/100 WBC (Bld) 79.8 % 47-[address] [facility] Basophils/100 WBC (Bld) 0.3 % 0-[address] [facility] Basophils/100 WBC (Bld) 0.1 % 0-[address] [facility] Blood erythrocytes count (nu mber/volume)Ordered By: Jordan Ortiz on 03-06-2023 RBC (Bld) [#/Vol] 3.37 10*6/uL 4.6-6.2 [facility] Blood hemoglobin measurement (mass/volume)Ordered By: Jordan Ortiz on 03-06-2023 Hemoglobin (Bld) [Mass/Vol] 10.0 g/dL 13.0-16.5 [facility] Blood lymphocytes/100 leukoc ytesOrdered By: Jordan Ortiz on 03-06-2023 Lymphocytes/100 WBC (Bld) 8.3 % 19-41 [facility] Blood monocytes/100 leukocyt esOrdered By: Jordan Ortiz on 03-06-2023 Monocytes/100 WBC (Bld) 10.8 % 0-[address] [facility] Blood platelet mean volumeOr dered By: Jrodan Ortiz on 03-06-2023 Platelet mean volume (Bld) [Entitic vol] 11.1 fL 6.2-12.0 [facility] Determination of erythrocyte mean corpuscular volume (MCV)Ordered By: Jordan Ortiz on 03-06-2023 MCV (RBC) [Entitic vol] 92.9 fL 80-[address] [facility] Glucose Glucometer (BldC) [M ass/Vol]Ordered By: Jordan Ortiz on 03-06-2023 Glucose [Mass/Vol] 325 mg/dL 74-106 [facility] Hematocrit Auto (Bld) [Volum e fraction]Ordered By: Jordan Ortiz on 03-06-2023 Hematocrit (Bld) [Volume fraction] 31.3 % 40-54 [facility] MCHC Auto (RBC) [Mass/Vol]Or dered By: Jordan Ortiz on 03-06-2023 MCHC (RBC) [Mass/Vol] 31.9 g/dL 32-36 [facility] No Panel InformationOrdered By: Jordan Ortiz on 03-06-2023 29.7 pg 27.0-32.0 [facility] 18.0 % 11.6-14.6 [facility] 62.2 fl 35.1-43.9 [facility] 0.700 % 0.0-0.9 [facility] 0 % 0-5 [facility] 48 mL/min >60 [facility] 58 mL/min >60 [facility] 54.00 ml/min [facility] 35.9 RATIO 10-20 [facility] 34.0 mmol/L 21.0-32.0 [facility] Platelets bldOrdered By: Tino Ortiz on 03-06-2023 Platelets (Bld) [#/Vol] 244 10*3/uL 150-450 [facility] Serum or plasma calcium yocasta urement (mass/volume)Ordered By: Jordan Ortiz on 03-06-2023 Calcium [Mass/Vol] 8.9 mg/dL 8.5-10.1 [facility] Serum or plasma creatinine m easurement (mass/volume)Ordered By: Jordan Ortiz on 03-06-2023 Creatinine [Mass/Vol] 1.53 mg/dL 0.70-1.30 [facility] Serum or plasma urea nitroge n measurement (mass/volume)Ordered By: Jordan Ortiz on 03-06-2023 Urea nitrogen [Mass/Vol] 55 mg/dL 7-18 [facility] Thin prep Papanicolaou smear with manual screeningOrdered By: Jordan Ortiz on 03-06-2023 Thin prep Papanicolaou smear with manual screening 5 5-15 [facility] Basophil percentageOrdered B y: Jordan Ortiz on 03-05-2023 Basophil percentage 6.0 g/dL 6.4-8.2 [facility] Basophil percentage 0.50 mg/dL 0.20-1.00 [facility] No Panel InformationOrdered By: Jordan Ortiz on 03-05-2023 2.9 g/dL 2.2-4.2 [facility] 66 U/L 45-117 [facility] 19 U/L 16-61 [facility] 1.9 mg/dL 1.6-2.6 [facility] Serum or plasma albumin yocasta urement (mass/volume)Ordered By: Jordan Ortiz on 03-05-2023 Albumin [Mass/Vol] 3.1 g/dL 3.2-5.0 [facility] Serum or plasma albumin/glob ulin mass ratioOrdered By: Jordan Ortiz on 03-05-2023 Albumin/Globulin [Mass ratio] 1.1 {ratio} 0.9-2.4 [facility] Thin prep Papanicolaou smear with manual screeningOrdered By: Jordan Ortiz on 03-05-2023 Thin prep Papanicolaou smear with manual screening 9 U/L 15-37 [facility] Blood manual differential co mment interpretation (narrative result)Ordered By: Jordan Ortiz on 03-04-2023 Manual differential comment Sohan (Bld) [Interp] SCANNED [facility] No Panel InformationOrdered By: Jordan Ortiz on 03-03-2023 2+ [facility] 593.7 pg/mL 0-100 [facility] Macrocytes detectionOrdered By: Jordan Ortiz on 03-02-2023 Macrocytes Ql (Bld) 1+ [facility] Thin prep Papanicolaou smear with manual screeningOrdered By: Jordan Ortiz on 03-02-2023 Thin prep Papanicolaou smear with manual screening 1+ [facility] Blood platelet adequacy dete ction by light microscopyOrdered By: Mable Pritchard on 03-01-2023 Platelets LM Ql (Bld) ADEQUATE ADEQ [facility] Hypochromatic red blood cell detectionOrdered By: Mable Pritchard on 03-01-2023 Hypochromia Ql (Bld) 1+ [facility] Lower GI hemoglobin IA Ql (S tl)Ordered By: Mable Pritchard on 03-01-2023 Stool gastrointestinal hemoglobin detection by immunologic method Positive [facility] Stool gastrointestinal hemoglobin detection by immunologic method Positive [facility] No Panel InformationOrdered By: Mable Pritchard on 03-01-2023 551 pg/mL 211-911 [facility] Review by pathologistOrdered By: Mable Pritchard on 03-01-2023 Pathologist review Sohan (Unsp spec) [Interp] Reviewed [facility] Serum or plasma ferritin vasquez surement (mass/volume)Ordered By: Mable Pritchard on 03-01-2023 Ferritin [Mass/Vol] 171 ng/mL 26-388 [facility] Serum or plasma folate measu rement (mass/volume)Ordered By: Mable Pritchard on 03-01-2023 Folate [Mass/Vol] 4.90 ng/mL 3.1-55.4 [facility] Absolute lymphocyte countOrd ered By: Dwain Nowak on 02-28-2023 Lymphocytes Auto (Unsp spec) [#/Vol] 0.91 10*3/uL 0.83-4.51 [facility] Basophil percentageOrdered B y: Dwain Nowak on 02-28-2023 Basophils/100 WBC (Bld) 0.6 % 0-[address] [facility] Chloride [Moles/Vol] 112 mmol/L 98-107 [facility] Eosinophils/100 WBC (Bld) 3.9 % 0-5 [facility] Glucose [Mass/Vol] 181 mg/dL 74-106 [facility] Comment on above: Fasting Glucose resu lt greater than or equal to 126 mg/dL suggests DIABETES MELLITUS per A.D.A. criteria. Neutrophils (Bld) [#/Vol] 5.8 10*3/uL 2.0-7.7 [facility] Neutrophils/100 WBC (Bld) 74.3 % 47-70 [facility] Potassium [Moles/Vol] 5.6 mmol/L 3.5-5.1 [facility] Sodium [Moles/Vol] 141 mmol/L 136-145 [facility] WBC (Bld) [#/Vol] 7.8 10*3/uL 4.4-11.0 [facility] Blood erythrocytes count (nu mber/volume)Ordered By: Dwain Nowak on 02-28-2023 RBC (Bld) [#/Vol] 2.33 10*6/uL 4.6-6.2 [facility] Blood hemoglobin measurement (mass/volume)Ordered By: Dwain Nowak on 02-28-2023 Hemoglobin (Bld) [Mass/Vol] 6.7 g/dL 13.0-16.5 [facility] Blood lymphocytes/100 leukoc ytesOrdered By: Dwain Nowak on 02-28-2023 Lymphocytes/100 WBC (Bld) 11.7 % 19-41 [facility] Blood monocytes/100 leukocyt esOrdered By: Dwain Nowak on 02-28-2023 Monocytes/100 WBC (Bld) 8.6 % 0-[address] [facility] Blood platelet mean volumeOr dered By: Dwain Nowak on 02-28-2023 Platelet mean volume (Bld) [Entitic vol] 10.7 fL 6.2-12.0 [facility] Determination of erythrocyte mean corpuscular volume (MCV)Ordered By: Dwain Nowak on 02-28-2023 MCV (RBC) [Entitic vol] 100.9 fL 80-[address] [facility] Hematocrit Auto (Bld) [Volum e fraction]Ordered By: Dwain Nowak on 02-28-2023 Hematocrit (Bld) [Volume fraction] 23.5 % 40-54 [facility] Hypochromatic red blood cell detectionOrdered By: Dwain Nowak on 02-28-2023 Hypochromia Ql (Bld) 1+ [facility] Iron measurement (mass/mass) Ordered By: Mable Pritchard on 02-28-2023 Iron (Unsp spec) [Mass/Mass] 33 ug/dL 65-175 [facility] - Chemistry and C hemistry - challengeOrdered By: Dwain Nowak on 02-28-2023 CO2 [Moles/Vol] 26.0 mmol/L 21.0-32.0 [facility] Urea nitrogen/Creatinine [Mass ratio] 20.0 mg/mg 10-20 [facility] - Hematology and Cell countsOrdered By: Dwain Nowak on 02-28-2023 Anisocytosis Ql (Bld) 2+ [facility] Erythrocyte distribution width (RBC) [Entitic vol] 74.5 fL 35.1-43.9 [facility] Erythrocyte distribution width (RBC) [Ratio] 19.9 % 11.6-14.6 [facility] Immature granulocytes/100 WBC (Bld) 0.900 % 0.0-0.9 [facility] Comment on above: IG% - Immature Granu locytes (promyelocytes, myelocytes and metamyelocytes) > 1% indicates that a LEFT SHIFT is Present. MCH (RBC) [Entitic mass] 28.8 pg 27.0-32.0 [facility] Nucleated RBC/100 WBC (Bld) [Ratio] 0.3 % 0-5 [facility] - Microbiology an d Antimicrobial susceptibilityOrdered By: Dwain Nowak on 02-28-2023 SARS-CoV-2 (COVID-19) RNA JUSTIN+probe Ql (Unsp spec) [facility] MCHC Auto (RBC) [Mass/Vol]Or dered By: Dwain Nowak on 02-28-2023 MCHC (RBC) [Mass/Vol] 28.5 g/dL 32-36 [facility] No Panel InformationOrdered By: Dwain Nowak on 02-28-2023 Estimated GFR (MDRD) Amer 49 mL/min >60 [facility] Comment on above: GFR Calc Estimated GFR (MDRD) Non-Af Amer 41 mL/min >60 [facility] Comment on above: Non- GFR Calc Troponin I High Sensitivity 18 pg/mL 3.0-78.0 [facility] Comment on above: Please Note: New Jennifer t Units and Gender Specific Reference Ranges. For more information see Policy Stat Procedure [place] High Sensitivity Troponin (TNIH) and attachments. 18 pg/mL 3.0-78.0 [facility] No Panel InformationOrdered By: Mable Pritchard on 02-28-2023 236 ug/dL 250-450 [facility] Platelets bldOrdered By: Dean Nowak on 02-28-2023 Platelets (Bld) [#/Vol] 278 10*3/uL 150-450 [facility] Respiratory pathogens detect ion panel by molecular detection methodOrdered By: Mable Pritchard on 02-28-2023 Respiratory pathogens DNA and RNA panel JUSTIN+probe (Resp) [facility] Respiratory pathogens DNA and RNA panel JUSTIN+probe (Resp) [facility] Serum or plasma calcium yocasta urement (mass/volume)Ordered By: Dwain Nowak on 02-28-2023 Calcium [Mass/Vol] 8.5 mg/dL 8.5-10.1 [facility] Serum or plasma creatinine m easurement (mass/volume)Ordered By: Dwain Nowak on 02-28-2023 Creatinine [Mass/Vol] 1.75 mg/dL 0.70-1.30 [facility] Comment on above: The validity of the calculated GFR & GFRAA in patients over 70 years has not been determined. Clinical correlation is essential. Serum or plasma iron saturat ion measurement (mass fraction)Ordered By: Mable Pritchard on 02-28-2023 Iron saturation [Mass fraction] 14.0 % 15.0-55.0 [facility] Serum or plasma urea nitroge n measurement (mass/volume)Ordered By: Dwain Nowak on 02-28-2023 Urea nitrogen [Mass/Vol] 35 mg/dL 7-18 [facility] Thin prep Papanicolaou smear with manual screeningOrdered By: Dwain Nowak on 02-28-2023 Thin prep Papanicolaou smear with manual screening 3 5-15 [facility] Stool gastrointestinal hemog lobin detection by immunologic methodOrdered By: Tobi Zapata on 01-30-2023 Lower GI hemoglobin IA Ql (Stl) [facility] Lower GI hemoglobin IA Ql (Stl) [facility] Absolute lymphocyte countOrd ered By: Tobi Zapata on 01-21-2023 Lymphocytes Auto (Unsp spec) [#/Vol] 2.12 10*3/uL 0.83-4.51 [facility] Basophil percentageOrdered B y: Tobi Zapata on 01-21-2023 Basophil percentage 401 mg/dL 74-106 [facility] Basophil percentage 6.7 g/dL 6.4-8.2 [facility] Basophil percentage 0.30 mg/dL 0.20-1.00 [facility] Basophil percentage 137 mmol/L 136-145 [facility] Basophil percentage 4.1 mmol/L 3.5-5.1 [facility] Basophil percentage 98 mmol/L 98-107 [facility] Basophil percentage 156 U/L 87-241 [facility] Basophils (Bld) [#/Vol] 11.0 10*3/uL 4.4-11.0 [facility] Basophils (Bld) [#/Vol] 7.5 10*3/uL 2.0-7.7 [facility] Basophils/100 WBC (Bld) 0.3 % 0-[address] [facility] Basophils/100 WBC (Bld) 68.2 % 47-[address] [facility] Basophils/100 WBC (Bld) 1.4 % 0-5 [facility] Bilirubin [Mass/Vol] 0.30 mg/dL 0.20-1.00 [facility] Comment on above: For patients on eltr ombopag therapy, use of Dimension [place] TBIL is not recommended. Chloride [Moles/Vol] 98 mmol/L 98-107 [facility] Eosinophils/100 WBC (Bld) 1.4 % 0-5 [facility] Glucose [Mass/Vol] 401 mg/dL 74-106 [facility] Comment on above: Glucose result great er than or equal to 200 mg/dLsuggests DIABETES MELLITUS per A.D.A. criteria. LDH [Catalytic activity/Vol] 156 U/L 87-241 [facility] Neutrophils (Bld) [#/Vol] 7.5 10*3/uL 2.0-7.7 [facility] Neutrophils/100 WBC (Bld) 68.2 % 47-70 [facility] Potassium [Moles/Vol] 4.1 mmol/L 3.5-5.1 [facility] Protein [Mass/Vol] 6.7 g/dL 6.4-8.2 [facility] Sodium [Moles/Vol] 137 mmol/L 136-145 [facility] WBC (Bld) [#/Vol] 11.0 10*3/uL 4.4-11.0 [facility] Blood erythrocytes count (nu mber/volume)Ordered By: Tobi Zapata on 01-21-2023 RBC (Bld) [#/Vol] 2.76 10*6/uL 4.6-6.2 [facility] Blood hemoglobin measurement (mass/volume)Ordered By: Tobi Zapata on 01-21-2023 Hemoglobin (Bld) [Mass/Vol] 7.4 g/dL 13.0-16.5 [facility] Blood lymphocytes/100 leukoc ytesOrdered By: Tobi Zapata on 01-21-2023 Lymphocytes/100 WBC (Bld) 19.3 % 19-41 [facility] Blood monocytes/100 leukocyt esOrdered By: Tobi Zapata on 01-21-2023 Monocytes/100 WBC (Bld) 9.4 % 0-[address] [facility] Blood platelet mean volumeOr dered By: Tobi Zapata on 01-21-2023 Platelet mean volume (Bld) [Entitic vol] 10.9 fL 6.2-12.0 [facility] Determination of erythrocyte mean corpuscular volume (MCV)Ordered By: Tobi Zapata on 01-21-2023 MCV (RBC) [Entitic vol] 88.4 fL 80-[address] [facility] Hematocrit Auto (Bld) [Volum e fraction]Ordered By: Tobi Zapata on 01-21-2023 Hematocrit (Bld) [Volume fraction] 24.4 % 40-54 [facility] Iron measurement (mass/mass) Ordered By: Tobi Zapata on 01-21-2023 Iron (Unsp spec) [Mass/Mass] 29 ug/dL 65-175 [facility] Laboratory - Chemistry and C hemistry - challengeOrdered By: Tobi Zapata on 01-21-2023 ALP [Catalytic activity/Vol] 75 U/L 45-117 [facility] ALT [Catalytic activity/Vol] 16 U/L 16-61 [facility] CO2 [Moles/Vol] 30.0 mmol/L 21.0-32.0 [facility] Globulin (S) [Mass/Vol] 3.3 g/dL 2.2-4.2 [facility] Urea nitrogen/Creatinine [Mass ratio] 29.5 mg/mg 10-20 [facility] Laboratory - Hematology and Cell countsOrdered By: Tobi Zapata on 01-21-2023 Erythrocyte distribution width (RBC) [Entitic vol] 50.6 fL 35.1-43.9 [facility] Erythrocyte distribution width (RBC) [Ratio] 15.9 % 11.6-14.6 [facility] Immature granulocytes/100 WBC (Bld) 1.400 % 0.0-0.9 [facility] Comment on above: IG% - Immature Granu locytes (promyelocytes, myelocytes and metamyelocytes) > 1% indicates that a LEFT SHIFT is Present. MCH (RBC) [Entitic mass] 26.8 pg 27.0-32.0 [facility] Nucleated RBC/100 WBC (Bld) [Ratio] 0.2 % 0-5 [facility] MCHC Auto (RBC) [Mass/Vol]Or dered By: Tobi Zapata on 01-21-2023 MCHC (RBC) [Mass/Vol] 30.3 g/dL 32-36 [facility] No Panel InformationOrdered By: Tobi Zapata on 01-21-2023 Estimated Creatinine Clearance Calc 31.85 ml/min [facility] Estimated GFR (MDRD) Amer 38 mL/min >60 [facility] Comment on above: GFR Calc Estimated GFR (MDRD) Non-Af Amer 31 mL/min >60 [facility] Comment on above: Non- GFR Calc Total Iron Binding Capacity 325 ug/dL 250-450 [facility] 26.8 pg 27.0-32.0 [facility] 15.9 % 11.6-14.6 [facility] 50.6 fl 35.1-43.9 [facility] 1.400 % 0.0-0.9 [facility] 0.2 % 0-5 [facility] 31 mL/min >60 [facility] 38 mL/min >60 [facility] 31.85 ml/min [facility] 29.5 RATIO 10-20 [facility] 3.3 g/dL 2.2-4.2 [facility] 75 U/L 45-117 [facility] 16 U/L 16-61 [facility] 30.0 mmol/L 21.0-32.0 [facility] 325 ug/dL 250-450 [facility] Platelets bldOrdered By: Mikael Zapata on 01-21-2023 Platelets (Bld) [#/Vol] 446 10*3/uL 150-450 [facility] Serum or plasma C reactive p rotein measurement (mass/volume)Ordered By: Tobi Nieves on 01-21-2023 CRP [Mass/Vol] 5.97 mg/L 0.0-3.0 [facility] Comment on above: C-Reactive Protein ( CRP) provides useful information for thediagnosis, therapy and monitoring of inflammatory processesand associated diseases. For the evaluation of Relative Riskfor Cardiovascular Disease, a High Sensitivity CRP (HSCRP)should be ordered. Serum or plasma albumin yocasta urement (mass/volume)Ordered By: Tobi Nieves on 01-21-2023 Albumin [Mass/Vol] 3.4 g/dL 3.2-5.0 [facility] Serum or plasma albumin/glob ulin mass ratioOrdered By: Tobi [facility] on 01-21-2023 Albumin/Globulin [Mass ratio] 1.0 {ratio} 0.9-2.4 [facility] Serum or plasma calcium yocasta urement (mass/volume)Ordered By: Tobi Nieves on 01-21-2023 Calcium [Mass/Vol] 8.9 mg/dL 8.5-10.1 [facility] Serum or plasma creatinine m easurement (mass/volume)Ordered By: Tobi [facility] on 01-21-2023 Creatinine [Mass/Vol] 2.20 mg/dL 0.70-1.30 [facility] Comment on above: The validity of the calculated GFR & GFRAA in patients over 70 years has not been determined. Clinical correlation is essential. Serum or plasma ferritin vasquez surement (mass/volume)Ordered By: Tobi Nieves on 01-21-2023 Ferritin [Mass/Vol] 48 ng/mL 26-388 [facility] Serum or plasma iron saturat ion measurement (mass fraction)Ordered By: [facility] on 01-21-2023 Iron saturation [Mass fraction] 8.9 % 15.0-55.0 [facility] Serum or plasma urea nitroge n measurement (mass/volume)Ordered By: Tobi [facility] on 01-21-2023 Urea nitrogen [Mass/Vol] 65 mg/dL 7-18 [facility] Thin prep Papanicolaou smear with manual screeningOrdered By: Tobi Zapata on 01-21-2023 Thin prep Papanicolaou smear with manual screening < 3 U/L 15-37 [facility] Thin prep Papanicolaou smear with manual screening 9 5-15 [facility] Laboratory - Chemistry and C hemistry - challengeOrdered By: Tobi Zapata on 11-26-2022 Cobalamin (Vitamin B12) [Mass/Vol] 924 pg/mL 211-911 [facility] - Chemistry and C hemistry - challengeOrdered By: Donna Will on 11-26-2022 Magnesium [Mass/Vol] 1.9 mg/dL 1.6-2.6 [facility] No Panel InformationOrdered By: Donna Will on 11-26-2022 1.9 mg/dL 1.6-2.6 [facility] No Panel InformationOrdered By: Tobi Zapata on 11-26-2022 924 pg/mL 91 [facility] Serum or plasma folate measu rement (mass/volume)Ordered By: Tobi Zapata on 11-26-2022 Folate [Mass/Vol] 5.30 ng/mL 3.1-55.4 [facility] Absolute lymphocyte countOrd ered By: Jordan Ortiz on 11-17-2022 Lymphocytes Auto (Unsp spec) [#/Vol] 1.51 10*3/uL 0.83-4.51 [facility] Basophil percentageOrdered B y: Jordan Ortiz on 11-17-2022 Basophil percentage 3.8 mg/dL 2.5-4.9 [facility] Basophil percentage 143 mg/dL 74-106 [facility] Basophil percentage 139 mmol/L 136-145 [facility] Basophil percentage 4.2 mmol/L 3.5-5.1 [facility] Basophil percentage 104 mmol/L 98-107 [facility] Basophils (Bld) [#/Vol] 7.8 10*3/uL 4.4-11.0 [facility] Basophils (Bld) [#/Vol] 4.7 10*3/uL 2.0-7.7 [facility] Basophils/100 WBC (Bld) 0.6 % 0-[address] [facility] Basophils/100 WBC (Bld) 60.4 % 47-[address] [facility] Basophils/100 WBC (Bld) 6.6 % 0-[address] [facility] Chloride [Moles/Vol] 104 mmol/L 98-107 [facility] Eosinophils/100 WBC (Bld) 6.6 % 0-5 [facility] Glucose [Mass/Vol] 143 mg/dL 74-106 [facility] Comment on above: Fasting Glucose resu lt greater than or equal to 126 mg/dL suggests DIABETES MELLITUS per A.D.A. criteria. Neutrophils (Bld) [#/Vol] 4.7 10*3/uL 2.0-7.7 [facility] Neutrophils/100 WBC (Bld) 60.4 % 47-70 [facility] Potassium [Moles/Vol] 4.2 mmol/L 3.5-5.1 [facility] Sodium [Moles/Vol] 139 mmol/L 136-145 [facility] WBC (Bld) [#/Vol] 7.8 10*3/uL 4.4-11.0 [facility] Blood erythrocytes count (nu mber/volume)Ordered By: Jordan Ortiz on 11-17-2022 RBC (Bld) [#/Vol] 2.86 10*6/uL 4.6-6.2 [facility] Blood hemoglobin measurement (mass/volume)Ordered By: Jordan Ortiz on 11-17-2022 Hemoglobin (Bld) [Mass/Vol] 8.1 g/dL 13.0-16.5 [facility] Blood lymphocytes/100 leukoc ytesOrdered By: Jordan Ortiz on 11-17-2022 Lymphocytes/100 WBC (Bld) 19.4 % 19-41 [facility] Blood monocytes/100 leukocyt esOrdered By: Jordan Ortiz on 11-17-2022 Monocytes/100 WBC (Bld) 12.0 % 0-10 [facility] Blood platelet mean volumeOr dered By: Jordan Ortiz on 11-17-2022 Platelet mean volume (Bld) [Entitic vol] 10.9 fL 6.2-12.0 [facility] Determination of erythrocyte mean corpuscular volume (MCV)Ordered By: Jordan Ortiz on 11-17-2022 MCV (RBC) [Entitic vol] 94.1 fL 80-[address] [facility] Glucose Glucometer (BldC) [M ass/Vol]Ordered By: Jordan Ortiz on 11-17-2022 Glucose [Mass/Vol] 217 mg/dL 74-106 [facility] Comment on above: MANAGEMENT OF PATIEN T CARE PER NURSING PROTOCOL Hematocrit Auto (Bld) [Volum e fraction]Ordered By: Jordan Ortiz on 11-17-2022 Hematocrit (Bld) [Volume fraction] 26.9 % 40-54 [facility] Laboratory - Chemistry and C hemistry - challengeOrdered By: Jordan Ortiz on 11-17-2022 CO2 [Moles/Vol] 33.0 mmol/L 21.0-32.0 [facility] Magnesium [Mass/Vol] 2.1 mg/dL 1.6-2.6 [facility] Urea nitrogen/Creatinine [Mass ratio] 15.8 mg/mg 10-20 [facility] - Hematology and Cell countsOrdered By: Jordan Ortiz on 11-17-2022 Erythrocyte distribution width (RBC) [Entitic vol] 53.9 fL 35.1-43.9 [facility] Erythrocyte distribution width (RBC) [Ratio] 15.8 % 11.6-14.6 [facility] Immature granulocytes/100 WBC (Bld) 1.000 % 0.0-0.9 [facility] Comment on above: IG% - Immature Granu locytes (promyelocytes, myelocytes and metamyelocytes) > 1% indicates that a LEFT SHIFT is Present. MCH (RBC) [Entitic mass] 28.3 pg 27.0-32.0 [facility] Nucleated RBC/100 WBC (Bld) [Ratio] 0.3 % 0-5 [facility] MCHC Auto (RBC) [Mass/Vol]Or dered By: Jordan Ortiz on 11-17-2022 MCHC (RBC) [Mass/Vol] 30.1 g/dL 32-36 [facility] No Panel InformationOrdered By: Jordan Ortiz on 11-17-2022 Estimated Creatinine Clearance Calc 42.47 ml/min [facility] Estimated GFR (MDRD) Amer 53 mL/min >60 [facility] Comment on above: GFR Calc Estimated GFR (MDRD) Non-Af Amer 44 mL/min >60 [facility] Comment on above: Non- GFR Calc 28.3 pg 27.0-32.0 [facility] 15.8 % 11.6-14.6 [facility] 53.9 fl 35.1-43.9 [facility] 1.000 % 0.0-0.9 [facility] 0.3 % 0-5 [facility] 44 mL/min >60 [facility] 53 mL/min >60 [facility] 42.47 ml/min [facility] 15.8 RATIO 10-20 [facility] 2.1 mg/dL 1.6-2.6 [facility] 33.0 mmol/L 21.0-32.0 [facility] Platelets bldOrdered By: Tino Ortiz on 11-17-2022 Platelets (Bld) [#/Vol] 240 10*3/uL 150-450 [facility] Serum or plasma calcium yocasta urement (mass/volume)Ordered By: Jordan Ortiz on 11-17-2022 Calcium [Mass/Vol] 8.2 mg/dL 8.5-10.1 [facility] Serum or plasma creatinine m easurement (mass/volume)Ordered By: Jordan Ortiz on 11-17-2022 Creatinine [Mass/Vol] 1.65 mg/dL 0.70-1.30 [facility] Comment on above: The validity of the calculated GFR & GFRAA in patients over 70 years has not been determined. Clinical correlation is essential. Serum or plasma urea nitroge n measurement (mass/volume)Ordered By: Jordan Ortiz on 11-17-2022 Urea nitrogen [Mass/Vol] 26 mg/dL 7-18 [facility] Thin prep Papanicolaou smear with manual screeningOrdered By: Jordan Ortiz on 11-17-2022 Thin prep Papanicolaou smear with manual screening 2 5-15 [facility] Absolute lymphocyte countOrd ered By: Jj Garcia on 11-15-2022 Lymphocytes Auto (Unsp spec) [#/Vol] 1.31 10*3/uL 0.83-4.51 [facility] Basophil percentageOrdered B y: Jj Garcia on 11-15-2022 Basophils/100 WBC (Bld) 0.8 % 0-1 [facility] Chloride [Moles/Vol] 107 mmol/L 98-107 [facility] Eosinophils/100 WBC (Bld) 6.0 % 0-5 [facility] Glucose [Mass/Vol] 221 mg/dL 74-106 [facility] Comment on above: Glucose result great er than or equal to 200 mg/dLsuggests DIABETES MELLITUS per A.D.A. criteria. Neutrophils (Bld) [#/Vol] 4.8 10*3/uL 2.0-7.7 [facility] Neutrophils/100 WBC (Bld) 65.2 % 47-70 [facility] Potassium [Moles/Vol] 4.7 mmol/L 3.5-5.1 [facility] Sodium [Moles/Vol] 139 mmol/L 136-145 [facility] WBC (Bld) [#/Vol] 7.3 10*3/uL 4.4-11.0 [facility] Blood erythrocytes count (nu mber/volume)Ordered By: Jj Garcia on 11-15-2022 RBC (Bld) [#/Vol] 2.77 10*6/uL 4.6-6.2 [facility] Blood hemoglobin measurement (mass/volume)Ordered By: Jj Garcia on 11-15-2022 Hemoglobin (Bld) [Mass/Vol] 7.9 g/dL 13.0-16.5 [facility] Blood lymphocytes/100 leukoc ytesOrdered By: Jj Garcia on 11-15-2022 Lymphocytes/100 WBC (Bld) 17.9 % 19-41 [facility] Blood monocytes/100 leukocyt esOrdered By: Jj Garcia on 11-15-2022 Monocytes/100 WBC (Bld) 8.9 % 0-[address] [facility] Blood platelet mean volumeOr dered By: Jj Garcia on 11-15-2022 Platelet mean volume (Bld) [Entitic vol] 10.9 fL 6.2-12.0 [facility] Determination of erythrocyte mean corpuscular volume (MCV)Ordered By: Jj Garcia on 11-15-2022 MCV (RBC) [Entitic vol] 96.4 fL 80-94 [facility] Hematocrit Auto (Bld) [Volum e fraction]Ordered By: Jjdaisy Garcia on 11-15-2022 Hematocrit (Bld) [Volume fraction] 26.7 % 40-54 [facility] Iron measurement (mass/mass) Ordered By: Loki Lozoya on 11-15-2022 Iron (Unsp spec) [Mass/Mass] 51 ug/dL 65-175 [facility] Laboratory - Chemistry and C hemistry - challengeOrdered By: [facility] on 11-15-2022 CO2 [Moles/Vol] 33.0 mmol/L 21.0-32.0 [facility] Natriuretic peptide B (Bld) [Mass/Vol] 298.1 pg/mL 0-100 [facility] Urea nitrogen/Creatinine [Mass ratio] 13.6 mg/mg 10-20 [facility] - Hematology and Cell countsOrdered By: [facility] on 11-15-2022 Erythrocyte distribution width (RBC) [Entitic vol] 54.0 fL 35.1-43.9 [facility] Erythrocyte distribution width (RBC) [Ratio] 15.8 % 11.6-14.6 [facility] Immature granulocytes/100 WBC (Bld) 1.200 % 0.0-0.9 [facility] Comment on above: IG% - Immature Granu locytes (promyelocytes, myelocytes and metamyelocytes) > 1% indicates that a LEFT SHIFT is Present. MCH (RBC) [Entitic mass] 28.5 pg 27.0-32.0 [facility] Nucleated RBC/100 WBC (Bld) [Ratio] 0 % 0-5 [facility] MCHC Auto (RBC) [Mass/Vol]Or dered By: Jjdaisy Garcia on 11-15-2022 MCHC (RBC) [Mass/Vol] 29.6 g/dL 32-36 [facility] No Panel InformationOrdered By: Loki Lozoya on 11-15-2022 Total Iron Binding Capacity 243 ug/dL 250-450 [facility] Troponin I High Sensitivity 15 pg/mL 3.0-78.0 [facility] Comment on above: Please Note: New Jennifer t Units and Gender Specific Reference Ranges. For more information see Policy Stat Procedure [place] High Sensitivity Troponin (TNIH) and attachments. 15 pg/mL 3.0-78.0 [facility] 243 ug/dL 250-450 [facility] No Panel InformationOrdered By: Jj Garcia on 11-15-2022 Estimated Creatinine Clearance Calc 31.52 ml/min [facility] Estimated GFR (MDRD) Amer 57 mL/min >60 [facility] Comment on above: GFR Calc Estimated GFR (MDRD) Non-Af Amer 47 mL/min >60 [facility] Comment on above: Non- GFR Calc Troponin I High Sensitivity 17 pg/mL 3.0-78.0 [facility] Comment on above: Please Note: New Jennifer t Units and Gender Specific Reference Ranges. For more information see Policy Stat Procedure [place] High Sensitivity Troponin (TNIH) and attachments. 298.1 pg/mL 0-100 [facility] Platelets bldOrdered By: Jj Garcia on 11-15-2022 Platelets (Bld) [#/Vol] 274 10*3/uL 150-450 [facility] Serum or plasma calcium yocasta urement (mass/volume)Ordered By: Jj Garcia on 11-15-2022 Calcium [Mass/Vol] 8.5 mg/dL 8.5-10.1 [facility] Serum or plasma creatinine m easurement (mass/volume)Ordered By: Jj Garcia on 11-15-2022 Creatinine [Mass/Vol] 1.54 mg/dL 0.70-1.30 [facility] Comment on above: The validity of the calculated GFR & GFRAA in patients over 70 years has not been determined. Clinical correlation is essential. Serum or plasma ferritin vasquez surement (mass/volume)Ordered By: Loki Lozoya on 11-15-2022 Ferritin [Mass/Vol] 111 ng/mL 26-388 [facility] Serum or plasma iron saturat ion measurement (mass fraction)Ordered By: Loki Lozoya on 11-15-2022 Iron saturation [Mass fraction] 21.0 % 15.0-55.0 [facility] Serum or plasma urea nitroge n measurement (mass/volume)Ordered By: Jj Garcia on 11-15-2022 Urea nitrogen [Mass/Vol] 21 mg/dL 7-18 [facility] Thin prep Papanicolaou smear with manual screeningOrdered By: Jj Garcia on 11-15-2022 Thin prep Papanicolaou smear with manual screening -1 5-15 [facility] Whole blood hemoglobin A1c/t otal hemoglobin ratio (mass fraction)Ordered By: Loki Lozoya on 11-15-2022 HbA1c (Bld) [Mass fraction] 8.6 % 3.8-5.6 [facility] Comment on above: Normal < 5.7 % Predi abetic 5.7 - 6.4 % Diabetic >or= 6.5 % Please note range changes. Absolute lymphocyte countOrd ered By: Martha Dodson on 10-29-2022 Lymphocytes Auto (Unsp spec) [#/Vol] 1.37 10*3/uL 0.83-4.51 [facility] Basophil percentageOrdered B y: Martha Dodson on 10-29-2022 Basophils/100 WBC (Bld) 0.6 % 0-[address] [facility] Bilirubin [Mass/Vol] 0.40 mg/dL 0.20-1.00 [facility] Comment on above: For patients on eltr ombopag therapy, use of Dimension [place] TBIL is not recommended. Chloride [Moles/Vol] 107 mmol/L 98-107 [facility] Eosinophils/100 WBC (Bld) 4.9 % 0-5 [facility] Glucose [Mass/Vol] 204 mg/dL 74-106 [facility] Comment on above: Glucose result great er than or equal to 200 mg/dLsuggests DIABETES MELLITUS per A.D.A. criteria. LDH [Catalytic activity/Vol] 173 U/L 87-241 [facility] Neutrophils (Bld) [#/Vol] 4.5 10*3/uL 2.0-7.7 [facility] Neutrophils/100 WBC (Bld) 64.4 % 47-70 [facility] Potassium [Moles/Vol] 3.8 mmol/L 3.5-5.1 [facility] Protein [Mass/Vol] 6.4 g/dL 6.4-8.2 [facility] Sodium [Moles/Vol] 140 mmol/L 136-145 [facility] WBC (Bld) [#/Vol] 6.9 10*3/uL 4.4-11.0 [facility] Blood erythrocytes count (nu mber/volume)Ordered By: Martha Dodson on 10-29-2022 RBC (Bld) [#/Vol] 2.80 10*6/uL 4.6-6.2 [facility] Blood hemoglobin measurement (mass/volume)Ordered By: Martha Dodson on 10-29-2022 Hemoglobin (Bld) [Mass/Vol] 7.9 g/dL 13.0-16.5 [facility] Blood lymphocytes/100 leukoc ytesOrdered By: Martha Dodson on 10-29-2022 Lymphocytes/100 WBC (Bld) 19.7 % 19-41 [facility] Blood monocytes/100 leukocyt esOrdered By: Martha Dodson on 10-29-2022 Monocytes/100 WBC (Bld) 9.4 % 0-[address] [facility] Blood platelet mean volumeOr dered By: Marthabinh Dodson on 10-29-2022 Platelet mean volume (Bld) [Entitic vol] 10.2 fL 6.2-12.0 [facility] Determination of erythrocyte mean corpuscular volume (MCV)Ordered By: Martha Dodson on 10-29-2022 MCV (RBC) [Entitic vol] 94.6 fL 80-[address] [facility] Hematocrit Auto (Bld) [Volum e fraction]Ordered By: Martha Dodson on 10-29-2022 Hematocrit (Bld) [Volume fraction] 26.5 % 40-54 [facility] - Chemistry and C hemistry - challengeOrdered By: Martha Dodson on 10-29-2022 ALP [Catalytic activity/Vol] 76 U/L 45-117 [facility] ALT [Catalytic activity/Vol] 13 U/L 16-61 [facility] CO2 [Moles/Vol] 28.0 mmol/L 21.0-32.0 [facility] Globulin (S) [Mass/Vol] 3.1 g/dL 2.2-4.[address] [facility] Urea nitrogen/Creatinine [Mass ratio] 15.4 mg/mg 10-20 [facility] - Hematology and Cell countsOrdered By: Martha Dodson on 10-29-2022 Erythrocyte distribution width (RBC) [Entitic vol] 49.1 fL 35.1-43.9 [facility] Erythrocyte distribution width (RBC) [Ratio] 14.2 % 11.6-14.6 [facility] Immature granulocytes/100 WBC (Bld) 1.000 % 0.0-0.9 [facility] Comment on above: IG% - Immature Granu locytes (promyelocytes, myelocytes and metamyelocytes) > 1% indicates that a LEFT SHIFT is Present. MCH (RBC) [Entitic mass] 28.2 pg 27.0-32.0 [facility] Nucleated RBC/100 WBC (Bld) [Ratio] 0 % 0-5 [facility] MCHC Auto (RBC) [Mass/Vol]Or dered By: Martha Dodson on 10-29-2022 MCHC (RBC) [Mass/Vol] 29.8 g/dL 32-36 [facility] No Panel InformationOrdered By: Martha Dodson on 10-29-2022 Estimated Creatinine Clearance Calc 47.03 ml/min [facility] Estimated GFR (MDRD) Amer 59 mL/min >60 [facility] Comment on above: GFR Calc Estimated GFR (MDRD) Non-Af Amer 49 mL/min >60 [facility] Comment on above: Non- GFR Calc Platelets bldOrdered By: Jayden Dodson on 10-29-2022 Platelets (Bld) [#/Vol] 269 10*3/uL 150-450 [facility] Serum or plasma albumin yocasta urement (mass/volume)Ordered By: Martha Dodson on 10-29-2022 Albumin [Mass/Vol] 3.3 g/dL 3.2-5.0 [facility] Serum or plasma albumin/glob ulin mass ratioOrdered By: Martha Dodson on 10-29-2022 Albumin/Globulin [Mass ratio] 1.1 {ratio} 0.9-2.4 [facility] Serum or plasma calcium yocasta urement (mass/volume)Ordered By: Martha Dodson on 10-29-2022 Calcium [Mass/Vol] 8.5 mg/dL 8.5-10.1 [facility] Serum or plasma creatinine m easurement (mass/volume)Ordered By: Martha Dodson on 10-29-2022 Creatinine [Mass/Vol] 1.49 mg/dL 0.70-1.30 [facility] Comment on above: The validity of the calculated GFR & GFRAA in patients over 70 years has not been determined. Clinical correlation is essential. Serum or plasma urea nitroge n measurement (mass/volume)Ordered By: Martha Dodson on 10-29-2022 Urea nitrogen [Mass/Vol] 23 mg/dL 7-18 [facility] Thin prep Papanicolaou smear with manual screeningOrdered By: Martha Dodson on 10-29-2022 Thin prep Papanicolaou smear with manual screening 8 U/L 15-37 [facility] Thin prep Papanicolaou smear with manual screening 5 5-15 [facility] Iron measurement (mass/mass) Ordered By: Martha Dodson on 09-30-2022 Iron (Unsp spec) [Mass/Mass] 30 ug/dL 65-175 [facility] No Panel InformationOrdered By: Martha Dodson on 09-30-2022 Thyroid Stimulating Hormone (TSH) 1.54 uIU/mL 0.358-3.74 [facility] Total Iron Binding Capacity 278 ug/dL 250-450 [facility] 1.54 uIU/mL 0.358-3.74 [facility] Serum or plasma ferritin vasquez surement (mass/volume)Ordered By: Martha Dodson on 09-30-2022 Ferritin [Mass/Vol] 37 ng/mL 26-388 [facility] Serum or plasma iron saturat ion measurement (mass fraction)Ordered By: Martha Dodson on 09-30-2022 Iron saturation [Mass fraction] 10.8 % 15.0-55.0 [facility] - Chemistry and C hemistry - challengeOrdered By: Tobi Zapata on 09-04-2022 Cobalamin (Vitamin B12) [Mass/Vol] 547 pg/mL 211-911 [facility] Serum or plasma folate measu rement (mass/volume)Ordered By: Tobi Zapata on 09-04-2022 Folate [Mass/Vol] 6.50 ng/mL 3.1-55.4 [facility] Absolute lymphocyte countOrd ered By: Adam Freeman on 07-06-2023 Lymphocytes Auto (Unsp spec) [#/Vol] 1.02 10*3/uL 0.83-4.51 [facility] Basophil percentageOrdered B y: Adam Freeman on 08-29-2022 Basophils/100 WBC (Bld) 0.6 % 0-1 [facility] Bilirubin [Mass/Vol] 0.40 mg/dL 0.20-1.00 [facility] Comment on above: For patients on eltr ombopag therapy, use of Dimension Harvel TBIL is not recommended. Chloride [Moles/Vol] 106 mmol/L 98-107 [facility] Eosinophils/100 WBC (Bld) 4.3 % 0-5 [facility] Glucose [Mass/Vol] 338 mg/dL 74-106 [facility] Comment on above: Glucose result great er than or equal to 200 mg/dLsuggests DIABETES MELLITUS per A.D.A. criteria. Neutrophils (Bld) [#/Vol] 4.5 10*3/uL 2.0-7.7 [facility] Neutrophils/100 WBC (Bld) 68.2 % 47-70 [facility] Potassium [Moles/Vol] 4.3 mmol/L 3.5-5.1 [facility] Protein [Mass/Vol] 7.0 g/dL 6.4-8.2 [facility] Sodium [Moles/Vol] 139 mmol/L 136-145 [facility] WBC (Bld) [#/Vol] 6.5 10*3/uL 4.4-11.0 [facility] Blood erythrocytes count (nu mber/volume)Ordered By: Adam Freeman on 08-29-2022 RBC (Bld) [#/Vol] 2.58 10*6/uL 4.6-6.2 [facility] Blood hemoglobin measurement (mass/volume)Ordered By: Adam Freeman on 08-29-2022 Hemoglobin (Bld) [Mass/Vol] 7.9 g/dL 13.0-16.5 [facility] Blood hemoglobin measurement (mass/volume)Ordered By: Khai Galeana on 08-29-2022 Hemoglobin (Bld) [Mass/Vol] 7.8 g/dL 13.0-16.5 [facility] Blood lymphocytes/100 leukoc ytesOrdered By: Adam Freeman on 08-29-2022 Lymphocytes/100 WBC (Bld) 15.6 % 19-41 [facility] Blood monocytes/100 leukocyt esOrdered By: Adam Freeman on 08-29-2022 Monocytes/100 WBC (Bld) 10.4 % 0-[address] [facility] Blood platelet mean volumeOr dered By: Adam Freeman on 08-29-2022 Platelet mean volume (Bld) [Entitic vol] 10.4 fL 6.2-12.0 [facility] Determination of erythrocyte mean corpuscular volume (MCV)Ordered By: Adam Freeman on 08-29-2022 MCV (RBC) [Entitic vol] 95.7 fL 80-[address] [facility] Hematocrit Auto (Bld) [Volum e fraction]Ordered By: Adam Freeman on 08-29-2022 Hematocrit (Bld) [Volume fraction] 24.7 % 40-54 [facility] Hematocrit Auto (Bld) [Volum e fraction]Ordered By: Khai Galeana on 08-29-2022 Hematocrit (Bld) [Volume fraction] 26.2 % 40-54 [facility] - Chemistry and C hemistry - challengeOrdered By: Adam Freeman on 08-29-2022 ALP [Catalytic activity/Vol] 86 U/L 45-117 [facility] ALT [Catalytic activity/Vol] 19 U/L 16-61 [facility] CO2 [Moles/Vol] 28.0 mmol/L 21.0-32.0 [facility] Globulin (S) [Mass/Vol] 3.6 g/dL 2.2-4.[address] [facility] Urea nitrogen/Creatinine [Mass ratio] 20.3 mg/mg 10-20 [facility] - Hematology and Cell countsOrdered By: Adam Freeman on 08-29-2022 Erythrocyte distribution width (RBC) [Entitic vol] 50.5 fL 35.1-43.9 [facility] Erythrocyte distribution width (RBC) [Ratio] 14.7 % 11.6-14.6 [facility] Immature granulocytes/100 WBC (Bld) 0.900 % 0.0-0.9 [facility] Comment on above: IG% - Immature Granu locytes (promyelocytes, myelocytes and metamyelocytes) > 1% indicates that a LEFT SHIFT is Present. MCH (RBC) [Entitic mass] 30.6 pg 27.0-32.0 [facility] Nucleated RBC/100 WBC (Bld) [Ratio] 0 % 0-5 [facility] MCHC Auto (RBC) [Mass/Vol]Or dered By: Adam Freeman on 08-29-2022 MCHC (RBC) [Mass/Vol] 32.0 g/dL 32-36 [facility] No Panel InformationOrdered By: Adam Freeman on 08-29-2022 Estimated GFR (MDRD) Amer 62 mL/min >60 [facility] Comment on above: GFR Calc Estimated GFR (MDRD) Non-Af Amer 52 mL/min >60 [facility] Comment on above: Non- GFR Calc Platelets bldOrdered By: Valerie Freeman on 08-29-2022 Platelets (Bld) [#/Vol] 264 10*3/uL 150-450 [facility] Serum or plasma albumin yocasta urement (mass/volume)Ordered By: Adam Freeman on 08-29-2022 Albumin [Mass/Vol] 3.4 g/dL 3.2-5.0 [facility] Serum or plasma albumin/glob ulin mass ratioOrdered By: Adam Freeman on 08-29-2022 Albumin/Globulin [Mass ratio] 0.9 {ratio} 0.9-2.4 [facility] Serum or plasma calcium yocasta urement (mass/volume)Ordered By: Adam Freeman on 08-29-2022 Calcium [Mass/Vol] 8.8 mg/dL 8.5-10.1 [facility] Serum or plasma creatinine m easurement (mass/volume)Ordered By: Adam Freeman on 08-29-2022 Creatinine [Mass/Vol] 1.43 mg/dL 0.70-1.30 [facility] Comment on above: The validity of the calculated GFR & GFRAA in patients over 70 years has not been determined. Clinical correlation is essential. Serum or plasma urea nitroge n measurement (mass/volume)Ordered By: Adam Freeman on 08-29-2022 Urea nitrogen [Mass/Vol] 29 mg/dL 7-18 [facility] Thin prep Papanicolaou smear with manual screeningOrdered By: Adam Freeman on 08-29-2022 Thin prep Papanicolaou smear with manual screening 9 U/L 15-37 [facility] Thin prep Papanicolaou smear with manual screening 5 5-15 [facility] Absolute lymphocyte countOrd ered By: Tobi Zapata on 08-08-2022 Lymphocytes Auto (Unsp spec) [#/Vol] 1.70 10*3/uL 0.83-4.51 [facility] Basophil percentageOrdered B y: Tobi Zapata on 08-08-2022 Basophils/100 WBC (Bld) 0.6 % 0-[address] [facility] Eosinophils/100 WBC (Bld) 4.5 % 0-5 [facility] Neutrophils (Bld) [#/Vol] 3.7 10*3/uL 2.0-7.7 [facility] Neutrophils/100 WBC (Bld) 55.8 % 47-70 [facility] WBC (Bld) [#/Vol] 6.7 10*3/uL 4.4-11.0 [facility] Blood erythrocytes count (nu mber/volume)Ordered By: Tobi Zapata on 08-08-2022 RBC (Bld) [#/Vol] 2.52 10*6/uL 4.6-6.2 [facility] Blood hemoglobin measurement (mass/volume)Ordered By: Tobi Zapata on 08-08-2022 Hemoglobin (Bld) [Mass/Vol] 7.6 g/dL 13.0-16.5 [facility] Blood lymphocytes/100 leukoc ytesOrdered By: Tobi Zapata on 08-08-2022 Lymphocytes/100 WBC (Bld) 25.4 % 19-41 [facility] Blood monocytes/100 leukocyt esOrdered By: Tobi Zapata on 08-08-2022 Monocytes/100 WBC (Bld) 12.1 % 0-10 [facility] Blood platelet mean volumeOr dered By: Tobi Zapata on 08-08-2022 Platelet mean volume (Bld) [Entitic vol] 10.3 fL 6.2-12.0 [facility] Determination of erythrocyte mean corpuscular volume (MCV)Ordered By: Tobi Zapata on 08-08-2022 MCV (RBC) [Entitic vol] 99.2 fL 80-[address] [facility] Hematocrit Auto (Bld) [Volum e fraction]Ordered By: Tobi Zapata on 08-08-2022 Hematocrit (Bld) [Volume fraction] 25.0 % 40-54 [facility] - Hematology and Cell countsOrdered By: Tobi Zapata on 08-08-2022 Erythrocyte distribution width (RBC) [Entitic vol] 54.2 fL 35.1-43.9 [facility] Erythrocyte distribution width (RBC) [Ratio] 15.0 % 11.6-14.6 [facility] Immature granulocytes/100 WBC (Bld) 1.600 % 0.0-0.9 [facility] Comment on above: IG% - Immature Granu locytes (promyelocytes, myelocytes and metamyelocytes) > 1% indicates that a LEFT SHIFT is Present. MCH (RBC) [Entitic mass] 30.2 pg 27.0-32.0 [facility] Nucleated RBC/100 WBC (Bld) [Ratio] 0.3 % 0-5 [facility] MCHC Auto (RBC) [Mass/Vol]Or dered By: Tobi Zapata on 08-08-2022 MCHC (RBC) [Mass/Vol] 30.4 g/dL 32-36 [facility] Platelets bldOrdered By: Mikael Zapata on 08-08-2022 Platelets (Bld) [#/Vol] 210 10*3/uL 150-450 [facility] Lower GI hemoglobin IA Ql (S tl)Ordered By: Tobi Zapata on 07-29-2022 Stool Occult Blood (FOREST) Positive [facility] Stool gastrointestinal hemoglobin detection by immunologic method Positive Abnormal [facility] Stool gastrointestinal hemog lobin detection by immunologic methodOrdered By: Tobi Zapata on 07-29-2022 Lower GI hemoglobin IA Ql (Stl) Positive Abnormal [facility] Basophil percentageOrdered B y: Tobi Zapata on 07-23-2022 Bilirubin [Mass/Vol] 0.30 mg/dL 0.20-1.00 [facility] Comment on above: For patients on eltr ombopag therapy, use of Dimension [place]vel TBIL is not recommended. Chloride [Moles/Vol] 115 mmol/L 98-107 [facility] Glucose [Mass/Vol] 323 mg/dL 74-106 [facility] Comment on above: Glucose result great er than or equal to 200 mg/dLsuggests DIABETES MELLITUS per A.D.A. criteria. LDH [Catalytic activity/Vol] 170 U/L 87-241 [facility] Potassium [Moles/Vol] 5.7 mmol/L 3.5-5.1 [facility] Protein [Mass/Vol] 6.2 g/dL 6.4-8.2 [facility] Sodium [Moles/Vol] 142 mmol/L 136-145 [facility] Iron measurement (mass/mass) Ordered By: Tobi Zapata on 07-23-2022 Iron (Unsp spec) [Mass/Mass] 70 ug/dL 65-175 [facility] - Chemistry and C hemistry - challengeOrdered By: Tobi Zapata on 07-23-2022 ALP [Catalytic activity/Vol] 90 U/L 45-117 [facility] ALT [Catalytic activity/Vol] 19 U/L 16-61 [facility] CO2 [Moles/Vol] 20.0 mmol/L 21.0-32.0 [facility] Globulin (S) [Mass/Vol] 3.0 g/dL 2.2-4.2 [facility] Urea nitrogen/Creatinine [Mass ratio] 30.8 mg/mg 10-20 [facility] No Panel InformationOrdered By: Tobi Zapata on 07-23-2022 Estimated Creatinine Clearance Calc 48.71 ml/min [facility] Estimated GFR (MDRD) Amer 61 mL/min >60 [facility] Comment on above: GFR Calc Estimated GFR (MDRD) Non-Af Amer 50 mL/min >60 [facility] Comment on above: Non- GFR Calc Total Iron Binding Capacity 239 ug/dL 250-450 [facility] Serum or plasma albumin yocasta urement (mass/volume)Ordered By: Tobi Zapata on 07-23-2022 Albumin [Mass/Vol] 3.2 g/dL 3.2-5.0 [facility] Serum or plasma albumin/glob ulin mass ratioOrdered By: Tobi Zapata on 07-23-2022 Albumin/Globulin [Mass ratio] 1.1 {ratio} 0.9-2.4 [facility] Serum or plasma calcium yocasta urement (mass/volume)Ordered By: Tobi Zapata on 07-23-2022 Calcium [Mass/Vol] 8.1 mg/dL 8.5-10.1 [facility] Serum or plasma creatinine m easurement (mass/volume)Ordered By: Tobi Zapata on 07-23-2022 Creatinine [Mass/Vol] 1.46 mg/dL 0.70-1.30 [facility] Comment on above: The validity of the calculated GFR & GFRAA in patients over 70 years has not been determined. Clinical correlation is essential. Serum or plasma ferritin vasquez surement (mass/volume)Ordered By: Tobi Zapata on 07-23-2022 Ferritin [Mass/Vol] 98 ng/mL 26-388 [facility] Serum or plasma iron saturat ion measurement (mass fraction)Ordered By: Tobi Zapata on 07-23-2022 Iron saturation [Mass fraction] 29.3 % 15.0-55.0 [facility] Serum or plasma urea nitroge n measurement (mass/volume)Ordered By: Tobi Zapata on 07-23-2022 Urea nitrogen [Mass/Vol] 45 mg/dL 7-18 [facility] Thin prep Papanicolaou smear with manual screeningOrdered By: Tobi Zapata on 07-23-2022 Thin prep Papanicolaou smear with manual screening 13 U/L 15-37 [facility] Thin prep Papanicolaou smear with manual screening 7 5-15 [facility] Basophil percentageOrdered B y: Nate Bearden on 07-09-2022 Creatinine [Mass/Vol] 1.4 mg/dL 0.70-1.30 [facility] - Chemistry and C hemistry - challengeOrdered By: Nate Bearden on 07-09-2022 GFR/1.73 sq M.predicted among non-blacks MDRD (S/P/Bld) [Vol rate/Area] 53.0000 mL/min/{1.73_m2} >60 [facility] Blood hemoglobin measurement (mass/volume)Ordered By: Khai Galeana on 06-19-2022 Hemoglobin (Bld) [Mass/Vol] 9.7 g/dL 13.0-16.5 [facility] Hematocrit Auto (Bld) [Volum e fraction]Ordered By: Khai Galeana on 06-19-2022 Hematocrit (Bld) [Volume fraction] 31.7 % 40-54 [facility] Iron measurement (mass/mass) Ordered By: Khai Galeana on 06-19-2022 Iron (Unsp spec) [Mass/Mass] 115 ug/dL 65-175 [facility] No Panel InformationOrdered By: Khai Galeana on 06-19-2022 Prostate Specific Antigen Screen 1.24 ng/mL 0.00-4.00 [facility] Comment on above: This test was perfor med using the TPSA assay method for [employer] chemistry system. Values obtained with differentassay methods cannot be used interchangably.When changing PSA assays in the course of monitoring apatient, additional sequential testing should be carriedout to confirm baseline values. Total Iron Binding Capacity 257 ug/dL 250-450 [facility] Serum or plasma ferritin vasquez surement (mass/volume)Ordered By: Khai Galeana on 06-19-2022 Ferritin [Mass/Vol] 283 ng/mL 26-388 [facility] Serum or plasma iron saturat ion measurement (mass fraction)Ordered By: Khai Galeana on 06-19-2022 Iron saturation [Mass fraction] 44.7 % 15.0-55.0 [facility] Stool gastrointestinal hemog lobin detection by immunologic methodOrdered By: Tobi Zapata on 05-03-2022 Lower GI hemoglobin IA Ql (Stl) [facility] Stool gastrointestinal hemog lobin detection by immunologic methodOrdered By: Dr. Zapata on 05-03-2022 Lower GI hemoglobin IA Ql (Stl) [facility] Absolute lymphocyte countOrd ered By: Dr. Zapata on 04-29-2022 Lymphocytes Auto (Unsp spec) [#/Vol] 3.43 10*3/uL 0.83-4.51 [facility] Basophil percentageOrdered B y: Dr. Zapata on 04-29-2022 Basophils/100 WBC (Bld) 0.6 % 0-[address] [facility] Bilirubin [Mass/Vol] 0.30 mg/dL 0.20-1.00 [facility] Comment on above: For patients on eltr ombopag therapy, use of Dimension [place]vel TBIL is not recommended. Chloride [Moles/Vol] 109 mmol/L 98-107 [facility] Eosinophils/100 WBC (Bld) 4.5 % 0-5 [facility] Glucose [Mass/Vol] 209 mg/dL 74-106 [facility] Comment on above: Glucose result great er than or equal to 200 mg/dLsuggests DIABETES MELLITUS per A.D.A. criteria. LDH [Catalytic activity/Vol] 223 U/L 87-241 [facility] Neutrophils (Bld) [#/Vol] 5.4 10*3/uL 2.0-7.7 [facility] Neutrophils/100 WBC (Bld) 49.7 % 47-70 [facility] Potassium [Moles/Vol] 4.5 mmol/L 3.5-5.1 [facility] Protein [Mass/Vol] 7.4 g/dL 6.4-8.2 [facility] Sodium [Moles/Vol] 141 mmol/L 136-145 [facility] WBC (Bld) [#/Vol] 10.8 10*3/uL 4.4-11.0 [facility] Blood erythrocytes count (nu mber/volume)Ordered By: Dr. Zapata on 04-29-2022 RBC (Bld) [#/Vol] 2.87 10*6/uL 4.6-6.2 [facility] Blood hemoglobin measurement (mass/volume)Ordered By: Dr. Zapata on 04-29-2022 Hemoglobin (Bld) [Mass/Vol] 8.5 g/dL 13.0-16.5 [facility] Blood lymphocytes/100 leukoc ytesOrdered By: Dr. Zapata on 04-29-2022 Lymphocytes/100 WBC (Bld) 31.8 % 19-41 [facility] Blood monocytes/100 leukocyt esOrdered By: Dr. Zapata on 04-29-2022 Monocytes/100 WBC (Bld) 11.9 % 0-[address] [facility] Blood platelet mean volumeOr dered By: Dr. Zapata on 04-29-2022 Platelet mean volume (Bld) [Entitic vol] 9.6 fL 6.2-12.0 [facility] Determination of erythrocyte mean corpuscular volume (MCV)Ordered By: Dr. Zapata on 04-29-2022 MCV (RBC) [Entitic vol] 92.0 fL 80-[address] [facility] Hematocrit Auto (Bld) [Volum e fraction]Ordered By: Dr. Zapata on 04-29-2022 Hematocrit (Bld) [Volume fraction] 26.4 % 40-54 [facility] Hemoglobin in reticulocytes (mass per reticulocyte)Ordered By: Dr. Zapata on 04-29-2022 Hemoglobin (Reticulocytes) [Entitic mass] 27.7 pg 30-35 [facility] Iron measurement (mass/mass) Ordered By: Dr. Zapata on 04-29-2022 Iron (Unsp spec) [Mass/Mass] 38 ug/dL 65-175 [facility] - Chemistry and C hemistry - challengeOrdered By: Dr. Zapata on 04-29-2022 ALP [Catalytic activity/Vol] 82 U/L 45-117 [facility] ALT [Catalytic activity/Vol] 15 U/L 16-61 [facility] CO2 [Moles/Vol] 24.0 mmol/L 21.0-32.0 [facility] Globulin (S) [Mass/Vol] 4.2 g/dL 2.2-4.[address] [facility] Urea nitrogen/Creatinine [Mass ratio] 22.9 mg/mg 10-20 [facility] - Hematology and Cell countsOrdered By: Dr. Zapata on 04-29-2022 Erythrocyte distribution width (RBC) [Entitic vol] 48.0 fL 35.1-43.9 [facility] Erythrocyte distribution width (RBC) [Ratio] 14.3 % 11.6-14.6 [facility] Immature granulocytes/100 WBC (Bld) 1.500 % 0.0-0.9 [facility] Comment on above: IG% - Immature Granu locytes (promyelocytes, myelocytes and metamyelocytes) > 1% indicates that a LEFT SHIFT is Present. MCH (RBC) [Entitic mass] 29.6 pg 27.0-32.0 [facility] Nucleated RBC/100 WBC (Bld) [Ratio] 0 % 0-5 [facility] Auto (RBC) [Mass/Vol]Or dered By: Dr. Zapata on 04-29-2022 MCHC (RBC) [Mass/Vol] 32.2 g/dL 32-36 [facility] No Panel InformationOrdered By: Dr. Zapata on 04-29-2022 Estimated Creatinine Clearance Calc 54.29 ml/min [facility] Estimated GFR (MDRD) Amer 69 mL/min >60 [facility] Comment on above: GFR Calc Estimated GFR (MDRD) Non-Af Amer 57 mL/min >60 [facility] Comment on above: Non- GFR Calc Immature Reticulocyte Fraction 31.80 % 3.00-15.90 [facility] Reticulocyte Count 2.75 % 0.5-1.5 [facility] Total Iron Binding Capacity 256 ug/dL 250-450 [facility] No Panel InformationOrdered By: Tobi Zapata on 04-29-2022 2.75 % 0.5-1.5 [facility] 31.80 % 3.00-15.90 [facility] Platelets bldOrdered By: Dr. Zapata on 04-29-2022 Platelets (Bld) [#/Vol] 398 10*3/uL 150-450 [facility] Serum or plasma albumin yocasta urement (mass/volume)Ordered By: Dr. Zapata on 04-29-2022 Albumin [Mass/Vol] 3.2 g/dL 3.2-5.0 [facility] Serum or plasma albumin/glob ulin mass ratioOrdered By: Dr. Zapata on 04-29-2022 Albumin/Globulin [Mass ratio] 0.8 {ratio} 0.9-2.4 [facility] Serum or plasma calcium yocasta urement (mass/volume)Ordered By: Dr. Zapata on 04-29-2022 Calcium [Mass/Vol] 9.3 mg/dL 8.5-10.1 [facility] Serum or plasma creatinine m easurement (mass/volume)Ordered By: Dr. Zapata on 04-29-2022 Creatinine [Mass/Vol] 1.31 mg/dL 0.70-1.30 [facility] Comment on above: The validity of the calculated GFR & GFRAA in patients over 70 years has not been determined. Clinical correlation is essential. Serum or plasma ferritin vasquez surement (mass/volume)Ordered By: Dr. Zapata on 04-29-2022 Ferritin [Mass/Vol] 203 ng/mL 26-388 [facility] Serum or plasma iron saturat ion measurement (mass fraction)Ordered By: Dr. Zapata on 04-29-2022 Iron saturation [Mass fraction] 14.8 % 15.0-55.0 [facility] Serum or plasma urea nitroge n measurement (mass/volume)Ordered By: Dr. Zapata on 04-29-2022 Urea nitrogen [Mass/Vol] 30 mg/dL 7-18 [facility] Thin prep Papanicolaou smear with manual screeningOrdered By: Dr. Zapata on 04-29-2022 Thin prep Papanicolaou smear with manual screening 9 U/L 15-37 [facility] Thin prep Papanicolaou smear with manual screening 8 5-15 [facility] Basophil percentageOrdered B y: OLEG PIÑA on 03-09-2022 Basophils (Bld) [#/Vol] 5.6 10*3/uL 4.4-11.0 [facility] WBC (Bld) [#/Vol] 5.6 10*3/uL 4.4-11.0 [facility] Blood erythrocytes count (nu mber/volume)Ordered By: OLEG PIÑA on 03-09-2022 RBC (Bld) [#/Vol] 3.47 10*6/uL 4.6-6.2 [facility] Blood hemoglobin measurement (mass/volume)Ordered By: OLEG PIÑA on 03-09-2022 Hemoglobin (Bld) [Mass/Vol] 9.6 g/dL 13.0-16.5 [facility] Blood platelet mean volumeOr dered By: OLEG PIÑA on 03-09-2022 Platelet mean volume (Bld) [Entitic vol] 10.8 fL 6.2-12.0 [facility] Determination of erythrocyte mean corpuscular volume (MCV)Ordered By: OLEG PIÑA on 03-09-2022 MCV (RBC) [Entitic vol] 88.2 fL 80-[address] [facility] Hematocrit Auto (Bld) [Volum e fraction]Ordered By: OLEG PIÑA on 03-09-2022 Hematocrit (Bld) [Volume fraction] 30.6 % 40-54 [facility] - Hematology and Cell countsOrdered By: OLEG PIÑA on 03-09-2022 Erythrocyte distribution width (RBC) [Entitic vol] 49.5 fL 35.1-43.9 [facility] Erythrocyte distribution width (RBC) [Ratio] 15.5 % 11.6-14.6 [facility] MCH (RBC) [Entitic mass] 27.7 pg 27.0-32.0 [facility] MCHC Auto (RBC) [Mass/Vol]Or dered By: OLEG PIÑA on 03-09-2022 MCHC (RBC) [Mass/Vol] 31.4 g/dL 32-36 [facility] No Panel InformationOrdered By: OLEG PIÑA on 03-09-2022 27.7 pg 27.0-32.0 [facility] 15.5 % 11.6-14.6 [facility] 49.5 fl 35.1-43.9 [facility] Platelets bldOrdered By: EDWARD NEWSOME on 03-09-2022 Platelets (Bld) [#/Vol] 265 10*3/uL 150-450 [facility] - Microbiology an d Antimicrobial susceptibilityOrdered By: Dr. Walker on 02-20-2022 Bacteria identified Cx Nom (Bld) No growth in 5 days. [facility] No Panel InformationOrdered By: Dr. Walker on 02-20-2022 No growth in 5 days. [facility] Bacteria identified Cx Nom ( U)Ordered By: Dr. Walker on 02-16-2022 Culture, urine Positive [facility] Culture, urineOrdered By: Dr Juan Walker on 02-16-2022 Bacteria identified Cx Nom (U) Positive [facility] - Microbiology an d Antimicrobial susceptibilityOrdered By: Dr. oRsas on 02-16-2022 Respiratory pathogens DNA and RNA 12b panel JUSTIN+probe (Unsp spec) [facility] Absolute lymphocyte countOrd ered By: Dr. Shannon on 02-15-2022 Lymphocytes Auto (Unsp spec) [#/Vol] 2.99 10*3/uL 0.83-4.51 [facility] Basophil percentageOrdered B y: Dr. Shannon on 02-15-2022 Basophil percentage 161 mg/dL 74-106 [facility] Basophil percentage 139 mmol/L 136-145 [facility] Basophil percentage 4.1 mmol/L 3.5-5.1 [facility] Basophil percentage 107 mmol/L 98-107 [facility] Basophils (Bld) [#/Vol] 11.1 10*3/uL 4.4-11.0 [facility] Basophils (Bld) [#/Vol] 6.1 10*3/uL 2.0-7.7 [facility] Basophils/100 WBC (Bld) 0.6 % 0-[address] [facility] Basophils/100 WBC (Bld) 54.4 % 47-[address] [facility] Basophils/100 WBC (Bld) 3.0 % 0-[address] [facility] Chloride [Moles/Vol] 107 mmol/L 98-107 [facility] Eosinophils/100 WBC (Bld) 3.0 % 0-5 [facility] Glucose [Mass/Vol] 161 mg/dL 74-106 [facility] Comment on above: Fasting Glucose resu lt greater than or equal to 126 mg/dL suggests DIABETES MELLITUS per A.D.A. criteria. Neutrophils (Bld) [#/Vol] 6.1 10*3/uL 2.0-7.7 [facility] Neutrophils/100 WBC (Bld) 54.4 % 47-70 [facility] Potassium [Moles/Vol] 4.1 mmol/L 3.5-5.1 [facility] Sodium [Moles/Vol] 139 mmol/L 136-145 [facility] WBC (Bld) [#/Vol] 11.1 10*3/uL 4.4-11.0 [facility] Blood erythrocytes count (nu mber/volume)Ordered By: Dr. Shannon on 02-15-2022 RBC (Bld) [#/Vol] 3.68 10*6/uL 4.6-6.2 [facility] Blood hemoglobin measurement (mass/volume)Ordered By: Dr. Shannon on 02-15-2022 Hemoglobin (Bld) [Mass/Vol] 10.5 g/dL 13.0-16.5 [facility] Blood lymphocytes/100 leukoc ytesOrdered By: Dr. Shannon on 02-15-2022 Lymphocytes/100 WBC (Bld) 26.8 % 19-41 [facility] Blood manual differential co mment interpretation (narrative result)Ordered By: Dr. Shannon on 02-15-2022 Manual differential comment Sohan (Bld) [Interp] SCANNED [facility] Blood monocytes/100 leukocyt esOrdered By: [address] Shannon on 02-15-2022 Monocytes/100 WBC (Bld) 14.3 % 0-[address] [facility] Blood platelet mean volumeOr dered By: Dr. Shannon on 02-15-2022 Platelet mean volume (Bld) [Entitic vol] 10.6 fL 6.2-12.0 [facility] Determination of erythrocyte mean corpuscular volume (MCV)Ordered By: Dr. Shannon on 02-15-2022 MCV (RBC) [Entitic vol] 89.1 fL 80-[address] [facility] Hematocrit Auto (Bld) [Volum e fraction]Ordered By: Dr. Shannon on 02-15-2022 Hematocrit (Bld) [Volume fraction] 32.8 % 40-54 [facility] Laboratory - Chemistry and C hemistry - challengeOrdered By: Dr. Shannon on 02-15-2022 CO2 [Moles/Vol] 25.0 mmol/L 21.0-32.0 [facility] Urea nitrogen/Creatinine [Mass ratio] 25.8 mg/mg 10-20 [facility] - Hematology and Cell countsOrdered By: Dr. Shannon on 02-15-2022 Erythrocyte distribution width (RBC) [Entitic vol] 49.6 fL 35.1-43.9 [facility] Erythrocyte distribution width (RBC) [Ratio] 15.2 % 11.6-14.6 [facility] Immature granulocytes/100 WBC (Bld) 0.900 % 0.0-0.9 [facility] Comment on above: IG% - Immature Granu locytes (promyelocytes, myelocytes and metamyelocytes) > 1% indicates that a LEFT SHIFT is Present. MCH (RBC) [Entitic mass] 28.5 pg 27.0-32.0 [facility] Nucleated RBC/100 WBC (Bld) [Ratio] 0 % 0-5 [facility] MCHC Auto (RBC) [Mass/Vol]Or dered By: Dr. Shannon on 02-15-2022 MCHC (RBC) [Mass/Vol] 32.0 g/dL 32-36 [facility] No Panel InformationOrdered By: Dr. Shannon on 02-15-2022 Methicillin-Resist S.aureus DNA PCR Negative Negative [facility] Negative Negative [facility] Estimated Creatinine Clearance Calc 53.88 ml/min [facility] Estimated GFR (MDRD) Amer 69 mL/min >60 [facility] Comment on above: GFR Calc Estimated GFR (MDRD) Non-Af Amer 57 mL/min >60 [facility] Comment on above: Non- GFR Calc 28.5 pg 27.0-32.0 [facility] 15.2 % 11.6-14.6 [facility] 49.6 fl 35.1-43.9 [facility] 0.900 % 0.0-0.9 [facility] 0 % 0-5 [facility] 57 mL/min >60 [facility] 69 mL/min >60 [facility] 53.88 ml/min [facility] 25.8 RATIO 10-20 [facility] 25.0 mmol/L 21.0-32.0 [facility] Platelets bldOrdered By: Dr. Shannon on 02-15-2022 Platelets (Bld) [#/Vol] 357 10*3/uL 150-450 [facility] Review by pathologistOrdered By: Dr. Shannon on 02-15-2022 Pathologist review Sohan (Unsp spec) [Interp] Reviewed [facility] Comment on above: Previous reported re sult: Josephine hair Edited by: RGOOD on 02/15/22:1411Leukocytosis. Normocytic anemia.Clinical correlation necessary.Mc Urias M.D. 02/15/22 AMENDED REPORT 02/15/22 1412 PATH REV previously reported as: May foll Serum or plasma calcium yocasta urement (mass/volume)Ordered By: Dr. Shannon on 02-15-2022 Calcium [Mass/Vol] 9.3 mg/dL 8.5-10.1 [facility] Serum or plasma creatinine m easurement (mass/volume)Ordered By: Dr. Shannon on 02-15-2022 Creatinine [Mass/Vol] 1.32 mg/dL 0.70-1.30 [facility] Comment on above: The validity of the calculated GFR & GFRAA in patients over 70 years has not been determined. Clinical correlation is essential. Serum or plasma urea nitroge n measurement (mass/volume)Ordered By: Dr. Shannon on 02-15-2022 Urea nitrogen [Mass/Vol] 34 mg/dL 7-18 [facility] Thin prep Papanicolaou smear with manual screeningOrdered By: Dr. Shannon on 02-15-2022 Thin prep Papanicolaou smear with manual screening 7 5- [facility] Absolute lymphocyte counton 02-14-2022 Lymphocytes Auto (Unsp spec) [#/Vol] 1.28 10*3/uL 0.83-4.51 [facility] Work Phone: Amorphous sediment detection in urine sediment by light microscopyOrdered By: Dr. Walker on 02-14-2022 Amorphous sediment LM Ql (Urine sed) 1+ URATE [facility] Basophil percentageOrdered B y: Dr. Walker on 02-14-2022 Basophil percentage 50-100 SEEN /hpf 0-5 [facility] Basophil percentage 1.0 mmol/L 0.4-2.0 [facility] Lactate [Moles/Vol] 1.0 mmol/L 0.4-2.0 [facility] Basophil percentageon 2021 Basophils/100 WBC (Bld) 0.5 % 0-[address] [facility] Work Phone: Chloride [Moles/Vol] 109 mmol/L 98-107 [facility] Work Phone: Eosinophils/100 WBC (Bld) 1.4 % 0-5 [facility] Work Phone: Glucose [Mass/Vol] 217 mg/dL 74-106 [facility] Work Phone: Comment on above: Glucose result great er than or equal to 200 mg/dLsuggests DIABETES MELLITUS per A.D.A. criteria. Neutrophils (Bld) [#/Vol] 7.6 10*3/uL 2.0-7.7 [facility] Work Phone: Neutrophils/100 WBC (Bld) 72.2 % 47-70 [facility] Work Phone: [phone] Potassium [Moles/Vol] 5.1 mmol/L 3.5-5.1 [facility] Work Phone: Sodium [Moles/Vol] 138 mmol/L 136-145 [facility] Work Phone: [phone] WBC (Bld) [#/Vol] 10.6 10*3/uL 4.4-11.0 [facility] Work Phone: Bilirubin Test strip Ql (U)O rdered By: Dr. Walker on 02-14-2022 Bilirubin Ql (U) Negative Negative [facility] Blood erythrocytes count (nu mber/volume)on 02-14-2022 RBC (Bld) [#/Vol] 3.59 10*6/uL 4.6-6.2 [facility] Work Phone: Blood hemoglobin measurement (mass/volume)on 02-14-2022 Hemoglobin (Bld) [Mass/Vol] 10.1 g/dL 13.0-16.5 [facility] Work Phone: Blood lymphocytes/100 leukoc yteson 02-14-2022 Lymphocytes/100 WBC (Bld) 12.1 % 19-41 [facility] Work Phone: Blood monocytes/100 leukocyt eson 02-14-2022 Monocytes/100 WBC (Bld) 13.2 % 0-[address] [facility] Work Phone: Blood platelet mean volumeon 02-14-2022 Platelet mean volume (Bld) [Entitic vol] 10.0 fL 6.2-12.0 [facility] Work Phone: Determination of erythrocyte mean corpuscular volume (MCV)on 02-14-2022 MCV (RBC) [Entitic vol] 89.1 fL 80-[address] [facility] Work Phone: Hematocrit Auto (Bld) [Volum e fraction]on 02-14-2022 Hematocrit (Bld) [Volume fraction] 32.0 % 40-54 [facility] Work Phone: Ketones Test strip Ql (U)Ord ered By: Dr. Walker on 02-14-2022 Ketones Ql (U) Negative Negative [facility] Laboratory - Chemistry and C hemistry - challengeon 02-14-2022 CO2 [Moles/Vol] 25.0 mmol/L 21.0-32.0 [facility] Work Phone: Urea nitrogen/Creatinine [Mass ratio] 27.1 mg/mg 10-20 [facility] Work Phone: Laboratory - Chemistry and C hemistry - challengeOrdered By: Dr. Walker on 02-14-2022 Natriuretic peptide B (Bld) [Mass/Vol] 204.9 pg/mL 0-100 [facility] - Hematology and Cell countson 02-14-2022 Erythrocyte distribution width (RBC) [Entitic vol] 50.8 fL 35.1-43.9 [facility] Work Phone: Erythrocyte distribution width (RBC) [Ratio] 15.5 % 11.6-14.6 [facility] Work Phone: Immature granulocytes/100 WBC (Bld) 0.600 % 0.0-0.9 [facility] Work Phone: Comment on above: IG% - Immature Granu locytes (promyelocytes, myelocytes and metamyelocytes) > 1% indicates that a LEFT SHIFT is Present. MCH (RBC) [Entitic mass] 28.1 pg 27.0-32.0 [facility] Work Phone: Nucleated RBC/100 WBC (Bld) [Ratio] 0 % 0-5 [facility] Work Phone: MCHC Auto (RBC) [Mass/Vol]on 02-14-2022 MCHC (RBC) [Mass/Vol] 31.6 g/dL 32-36 [facility] Work Phone: Mucus LM Ql (Urine sed)Order ed By: Dr. Walker on 02-14-2022 Mucus Ql (Urine sed) 0 SEEN /hpf [facility] Nitrite Test strip Ql (U)Ord ered By: Dr. Walker on 02-14-2022 Nitrite Ql (U) Negative Negative [facility] No Panel InformationOrdered By: Dr. Walker on 02-14-2022 D-Dimer Quantitative (PE/DVT) 1.88 FEU/ug/m 0.27-0.49 [facility] Comment on above: D-Dimer ELEVATED (>0 .49): Additional studies and clinicalassessments are indicated to conclude diagnosis of:Deep Vein Thrombosis (DVT) or Pulmonary Embolism (PE)CRITICAL VALUE VERIFIED. [facility]4 Claire Nair.RESULTS READ BACK BY SAME . Troponin I High Sensitivity 12 pg/mL 3.0-78.0 [facility] Comment on above: Please Note: New Jennifer t Units and Gender Specific Reference Ranges. For more information see Policy Stat Procedure [place]vel High Sensitivity Troponin (TNIH) and attachments. 1.88 FEU/ug/m 0.27-0.49 [facility] 12 pg/mL 3.0-78.0 [facility] 204.9 pg/mL 0-100 [facility] No Panel Informationon 02-14 Estimated Creatinine Clearance Calc 49.39 ml/min [facility] Work Phone: Estimated GFR (MDRD) Amer 62 mL/min >60 [facility] Work Phone: Comment on above: GFR Calc Estimated GFR (MDRD) Non-Af Amer 51 mL/min >60 [facility] Work Phone: Comment on above: Non- GFR Calc Platelets bldon 02-14-2022 Platelets (Bld) [#/Vol] 295 10*3/uL 150-450 [facility] Work Phone: Protein Test strip Ql (U)Ord ered By: Dr. Walker on 02-14-2022 Protein Ql (U) 30 mg/dl Negative [facility] Serum or plasma calcium yocasta urement (mass/volume)on 02-14-2022 Calcium [Mass/Vol] 9.3 mg/dL 8.5-10.[address] [facility] Work Phone: Serum or plasma creatinine m easurement (mass/volume)on 02-14-2022 Creatinine [Mass/Vol] 1.44 mg/dL 0.70-1.30 [facility] Work Phone: Comment on above: The validity of the calculated GFR & GFRAA in patients over 70 years has not been determined. Clinical correlation is essential. Serum or plasma urea nitroge n measurement (mass/volume)on 02-14-2022 Urea nitrogen [Mass/Vol] 39 mg/dL 7-18 [facility] Work Phone: Squamous epithelial cells de tection in urine sediment by light microscopyOrdered By: Dr. Walker on 02-14-2022 Epithelial cells.squamous LM Ql (Urine sed) 0-5 SEEN /hpf 0-5 [facility] Thin prep Papanicolaou smear with manual screeningon 02-14-2022 Thin prep Papanicolaou smear with manual screening 4 5-15 [facility] Work Phone: Urine blood detectionOrdered By: Dr. Walker on 02-14-2022 RBC Ql (U) 25 /ul Negative [facility] RBC Ql (U) 5-10 SEEN /hpf 0-5 [facility] Urine clarityOrdered By: Dr. Walker on 02-14-2022 Clarity (U) Sl. Cloudy Clear [facility] Urine color determinationOrd ered By: Dr. Walker on 02-14-2022 Color (U) Yellow Yellow [facility] Urine glucose detectionOrder ed By: Dr. Walker on 02-14-2022 Glucose Ql (U) Normal mg/dl Normal [facility] Urine leukocyte esterase det ection by dipstickOrdered By: Dr. Walker on 02-14-2022 Leukocyte esterase Test strip Ql (U) 500 /ul Negative [facility] Urine pHOrdered By: Dr. Cindy ryan on 02-14-2022 pH (U) 5.0 [pH] 5.0 - 8.0 [facility] Urine sediment bacteria coun t by microscopy (number/high power field)Ordered By: Dr. Walker on 02-14-2022 Bacteria LM.HPF (Urine sed) [#/Area] RARE /hpf None Seen [facility] Urine specific gravity measu rementOrdered By: Dr. Walker on 02-14-2022 Specific gravity (U) [Rel density] 1.015 1.002-1.030 [facility] Urobilinogen Auto test strip Ql (U)Ordered By: Dr. Walker on 02-14-2022 Urobilinogen Ql (U) Normal mg/dl Normal [facility] Basophil percentageOrdered B y: OLEG PIÑA on 02-06-2022 Basophils (Bld) [#/Vol] 9.4 10*3/uL 4.4-11.0 [facility] WBC (Bld) [#/Vol] 9.4 10*3/uL 4.4-11.0 [facility] Blood erythrocytes count (nu mber/volume)Ordered By: OLEG PIÑA on 02-06-2022 RBC (Bld) [#/Vol] 3.50 10*6/uL 4.6-6.2 [facility] Blood hemoglobin measurement (mass/volume)Ordered By: OLEG PIÑA on 02-06-2022 Hemoglobin (Bld) [Mass/Vol] 10.0 g/dL 13.0-16.5 [facility] Blood platelet mean volumeOr dered By: OLEG PIÑA on 02-06-2022 Platelet mean volume (Bld) [Entitic vol] 10.9 fL 6.2-12.0 [facility] Determination of erythrocyte mean corpuscular volume (MCV)Ordered By: OLEG PIÑA on 02-06-2022 MCV (RBC) [Entitic vol] 89.7 fL 80-[address] [facility] Hematocrit Auto (Bld) [Volum e fraction]Ordered By: OLEG PIÑA on 02-06-2022 Hematocrit (Bld) [Volume fraction] 31.4 % 40-54 [facility] - Hematology and Cell countsOrdered By: OLEG PIÑA on 02-06-2022 Erythrocyte distribution width (RBC) [Entitic vol] 52.0 fL 35.1-43.9 [facility] Erythrocyte distribution width (RBC) [Ratio] 16.0 % 11.6-14.6 [facility] MCH (RBC) [Entitic mass] 28.6 pg 27.0-32.0 [facility] MCHC Auto (RBC) [Mass/Vol]Or dered By: OLEG PIÑA on 02-06-2022 MCHC (RBC) [Mass/Vol] 31.8 g/dL 32-36 [facility] No Panel InformationOrdered By: OLEG PIÑA on 02-06-2022 28.6 pg 27.0-32.0 [facility] 16.0 % 11.6-14.6 [facility] 52.0 fl 35.1-43.9 [facility] Platelets bldOrdered By: EDWARD NEWSOME on 02-06-2022 Platelets (Bld) [#/Vol] 325 10*3/uL 150-450 [facility] Absolute lymphocyte countOrd ered By: Dr. Zapata on 02-05-2022 Lymphocytes Auto (Unsp spec) [#/Vol] 3.30 10*3/uL 0.83-4.51 [facility] Basophil percentageOrdered B y: Dr. Zapata on 02-05-2022 Basophil percentage 196 mg/dL 74-106 [facility] Basophil percentage 6.8 g/dL 6.4-8.2 [facility] Basophil percentage 0.50 mg/dL 0.20-1.00 [facility] Basophil percentage 141 mmol/L 136-145 [facility] Basophil percentage 4.3 mmol/L 3.5-5.1 [facility] Basophil percentage 109 mmol/L 98-107 [facility] Basophils (Bld) [#/Vol] 11.4 10*3/uL 4.4-11.0 [facility] Basophils (Bld) [#/Vol] 5.4 10*3/uL 2.0-7.7 [facility] Basophils/100 WBC (Bld) 0.6 % 0-[address] [facility] Basophils/100 WBC (Bld) 47.0 % 47-[address] [facility] Basophils/100 WBC (Bld) 11.9 % 0-[address] [facility] Basophil percentageon 2021 Bilirubin [Mass/Vol] 0.50 mg/dL 0.20-1.00 [facility] Work Phone: Comment on above: For patients on eltr ombopag therapy, use of Dimension Harvel TBIL is not recommended. Chloride [Moles/Vol] 109 mmol/L 98-107 [facility] Work Phone: Eosinophils/100 WBC (Bld) 11.9 % 0-5 [facility] Work Phone: Glucose [Mass/Vol] 196 mg/dL 74-106 [facility] Work Phone: Comment on above: Fasting Glucose resu lt greater than or equal to 126 mg/dL suggests DIABETES MELLITUS per A.D.A. criteria. Neutrophils (Bld) [#/Vol] 5.4 10*3/uL 2.0-7.7 [facility] Work Phone: Neutrophils/100 WBC (Bld) 47.0 % 47-70 [facility] Work Phone: Potassium [Moles/Vol] 4.3 mmol/L 3.5-5.1 [facility] Work Phone: Protein [Mass/Vol] 6.8 g/dL 6.4-8.2 [facility] Work Phone: Sodium [Moles/Vol] 141 mmol/L 136-145 [facility] Work Phone: WBC (Bld) [#/Vol] 11.4 10*3/uL 4.4-11.0 [facility] Work Phone: Blood erythrocytes count (nu mber/volume)Ordered By: Dr. Zapata on 02-05-2022 RBC (Bld) [#/Vol] 3.87 10*6/uL 4.6-6.2 [facility] Blood hemoglobin measurement (mass/volume)Ordered By: Dr. Zapata on 02-05-2022 Hemoglobin (Bld) [Mass/Vol] 10.8 g/dL 13.0-16.5 [facility] Blood lymphocytes/100 leukoc ytesOrdered By: Dr. Zapata on 02-05-2022 Lymphocytes/100 WBC (Bld) 28.9 % 19-41 [facility] Blood monocytes/100 leukocyt esOrdered By: Dr. Zapata on 02-05-2022 Monocytes/100 WBC (Bld) 10.5 % 0-[address] [facility] Blood platelet mean volumeOr dered By: Dr. Zapata on 02-05-2022 Platelet mean volume (Bld) [Entitic vol] 9.8 fL 6.2-12.0 [facility] Determination of erythrocyte mean corpuscular volume (MCV)Ordered By: Dr. Zapata on 02-05-2022 MCV (RBC) [Entitic vol] 90.2 fL 80-[address] [facility] Hematocrit Auto (Bld) [Volum e fraction]Ordered By: Dr. Zapata on 02-05-2022 Hematocrit (Bld) [Volume fraction] 34.9 % 40-54 [facility] Iron measurement (mass/mass) Ordered By: Dr. Zapata on 02-05-2022 Iron (Unsp spec) [Mass/Mass] 88 ug/dL 65-175 [facility] Laboratory - Chemistry and C hemistry - challengeon 02-05-2022 ALP [Catalytic activity/Vol] 92 U/L 45-117 [facility] Work Phone: ALT [Catalytic activity/Vol] 18 U/L 16-61 [facility] Work Phone: CO2 [Moles/Vol] 27.0 mmol/L 21.0-32.0 [facility] Work Phone: Globulin (S) [Mass/Vol] 3.3 g/dL 2.2-4.[address] [facility] Work Phone: Urea nitrogen/Creatinine [Mass ratio] 23.9 mg/mg 10-20 [facility] Work Phone: Laboratory - Chemistry and C hemistry - challengeOrdered By: Dr. Zapata on 02-05-2022 Cobalamin (Vitamin B12) [Mass/Vol] 941 pg/mL 211-911 [facility] - Hematology and Cell countson 02-05-2022 Erythrocyte distribution width (RBC) [Entitic vol] 53.1 fL 35.1-43.9 [facility] Work Phone: Erythrocyte distribution width (RBC) [Ratio] 16.2 % 11.6-14.6 [facility] Work Phone: Immature granulocytes/100 WBC (Bld) 1.100 % 0.0-0.9 [facility] Work Phone: Comment on above: IG% - Immature Granu locytes (promyelocytes, myelocytes and metamyelocytes) > 1% indicates that a LEFT SHIFT is Present. MCH (RBC) [Entitic mass] 27.9 pg 27.0-32.0 [facility] Work Phone: Nucleated RBC/100 WBC (Bld) [Ratio] 0 % 0-5 [facility] Work Phone: MCHC Auto (RBC) [Mass/Vol]Or dered By: Dr. Zapata on 02-05-2022 MCHC (RBC) [Mass/Vol] 30.9 g/dL 32-36 [facility] No Panel Informationon 02-05 Estimated Creatinine Clearance Calc 53.07 ml/min [facility] Work Phone: Estimated GFR (MDRD) Amer 67 mL/min >60 [facility] Work Phone: Comment on above: GFR Calc Estimated GFR (MDRD) Non-Af Amer 56 mL/min >60 [facility] Work Phone: Comment on above: Non- GFR Calc Total Iron Binding Capacity 246 ug/dL 250-450 [facility] Work Phone: [phone] No Panel InformationOrdered By: Dr. Zapata on 02-05-2022 27.9 pg 27.0-32.0 [facility] 16.2 % 11.6-14.6 [facility] 53.1 fl 35.1-43.9 [facility] 1.100 % 0.0-0.9 [facility] 0 % 0-5 [facility] 56 mL/min >60 [facility] 67 mL/min >60 [facility] 53.07 ml/min [facility] 23.9 RATIO 10-20 [facility] 3.3 g/dL 2.2-4.2 [facility] 92 U/L 45-117 [facility] 18 U/L 16-61 [facility] 27.0 mmol/L 21.0-32.0 [facility] 941 pg/mL 211-911 [facility] 246 ug/dL 250-450 [facility] Platelets bldOrdered By: Dr. Zapata on 02-05-2022 Platelets (Bld) [#/Vol] 355 10*3/uL 150-450 [facility] Serum or plasma albumin yocasta urement (mass/volume)Ordered By: Dr. Zapata on 02-05-2022 Albumin [Mass/Vol] 3.5 g/dL 3.2-5.0 [facility] Serum or plasma albumin/glob ulin mass ratioOrdered By: Dr. Zapata on 02-05-2022 Albumin/Globulin [Mass ratio] 1.1 {ratio} 0.9-2.4 [facility] Serum or plasma calcium yocasta urement (mass/volume)Ordered By: Dr. Zapata on 02-05-2022 Calcium [Mass/Vol] 9.5 mg/dL 8.5-10.1 [facility] Serum or plasma creatinine m easurement (mass/volume)Ordered By: Dr. Zapata on 02-05-2022 Creatinine [Mass/Vol] 1.34 mg/dL 0.70-1.30 [facility] Comment on above: The validity of the calculated GFR & GFRAA in patients over 70 years has not been determined. Clinical correlation is essential. Serum or plasma ferritin vasquez surement (mass/volume)Ordered By: Dr. Zapata on 02-05-2022 Ferritin [Mass/Vol] 631 ng/mL 26-388 [facility] Serum or plasma folate measu rement (mass/volume)Ordered By: Dr. Zapata on 02-05-2022 Folate [Mass/Vol] 8.40 ng/mL 3.1-55.4 [facility] Serum or plasma iron saturat ion measurement (mass fraction)Ordered By: Dr. Zapata on 02-05-2022 Iron saturation [Mass fraction] 35.8 % 15.0-55.0 [facility] Serum or plasma urea nitroge n measurement (mass/volume)Ordered By: Dr. Zapata on 02-05-2022 Urea nitrogen [Mass/Vol] 32 mg/dL 7-18 [facility] Thin prep Papanicolaou smear with manual screeningOrdered By: Dr. Zapata on 02-05-2022 Thin prep Papanicolaou smear with manual screening 10 U/L 15-37 [facility] Thin prep Papanicolaou smear with manual screening 5 5-15 [facility] Thin prep Papanicolaou smear with manual screening 195 U/L 87-241 [facility] Basophil percentageOrdered B y: Khai Galeana on 01-15-2022 Basophils (Bld) [#/Vol] 8.3 10*3/uL 4.4-11.0 [facility] Basophil percentageon 2021 WBC (Bld) [#/Vol] 8.3 10*3/uL 4.4-11.0 [facility] Work Phone: Blood erythrocytes count (nu mber/volume)Ordered By: Khai Galeana on 01-15-2022 RBC (Bld) [#/Vol] 3.34 10*6/uL 4.6-6.2 [facility] Blood hemoglobin measurement (mass/volume)Ordered By: Khai Galeana on 01-15-2022 Hemoglobin (Bld) [Mass/Vol] 9.3 g/dL 13.0-16.5 [facility] Blood platelet mean volumeOr dered By: Khai Galeana on 01-15-2022 Platelet mean volume (Bld) [Entitic vol] 10.2 fL 6.2-12.0 [facility] Determination of erythrocyte mean corpuscular volume (MCV)Ordered By: Khai Galeana on 01-15-2022 MCV (RBC) [Entitic vol] 88.3 fL 80-[address] [facility] Hematocrit Auto (Bld) [Volum e fraction]Ordered By: Khai Galeana on 01-15-2022 Hematocrit (Bld) [Volume fraction] 29.5 % 40-54 [facility] - Hematology and Cell countson 01-15-2022 Erythrocyte distribution width (RBC) [Entitic vol] 55.7 fL 35.1-43.9 [facility] Work Phone: Erythrocyte distribution width (RBC) [Ratio] 17.2 % 11.6-14.6 [facility] Work Phone: MCH (RBC) [Entitic mass] 27.8 pg 27.0-32.0 [facility] Work Phone: MCHC Auto (RBC) [Mass/Vol]Or dered By: Khai Galeana on 01-15-2022 MCHC (RBC) [Mass/Vol] 31.5 g/dL 32-36 [facility] No Panel InformationOrdered By: Khai Galeana on 01-15-2022 27.8 pg 27.0-32.0 [facility] 17.2 % 11.6-14.6 [facility] 55.7 fl 35.1-43.9 [facility] Platelets bldOrdered By: Wagner Galeana on 01-15-2022 Platelets (Bld) [#/Vol] 334 10*3/uL 150-450 [facility] Absolute lymphocyte counton 12-26-2021 Lymphocytes Auto (Unsp spec) [#/Vol] 1.61 10*3/uL 0.83-4.51 [facility] Work Phone: Basophil percentageon 2021 Basophils/100 WBC (Bld) 0.7 % 0-[address] [facility] Work Phone: Bilirubin [Mass/Vol] 0.40 mg/dL 0.20-1.00 [facility] Work Phone: Comment on above: For patients on eltr ombopag therapy, use of Dimension [place] TBIL is not recommended. Chloride [Moles/Vol] 108 mmol/L 98-107 [facility] Work Phone: Eosinophils/100 WBC (Bld) 8.3 % 0-5 [facility] Work Phone: Glucose [Mass/Vol] 196 mg/dL 74-106 [facility] Work Phone: Comment on above: Fasting Glucose resu lt greater than or equal to 126 mg/dL suggests DIABETES MELLITUS per A.D.A. criteria. Neutrophils (Bld) [#/Vol] 5.3 10*3/uL 2.0-7.7 [facility] Work Phone: Neutrophils/100 WBC (Bld) 62.0 % 47-70 [facility] Work Phone: Potassium [Moles/Vol] 4.4 mmol/L 3.5-5.1 [facility] Work Phone: Protein [Mass/Vol] 5.9 g/dL 6.4-8.2 [facility] Work Phone: [phone] Sodium [Moles/Vol] 139 mmol/L 136-145 [facility] Work Phone: WBC (Bld) [#/Vol] 8.5 10*3/uL 4.4-11.0 [facility] Work Phone: [phone] Blood erythrocytes count (nu mber/volume)on 12-26-2021 RBC (Bld) [#/Vol] 2.95 10*6/uL 4.6-6.2 [facility] Work Phone: Blood hemoglobin measurement (mass/volume)on 12-26-2021 Hemoglobin (Bld) [Mass/Vol] 8.4 g/dL 13.0-16.5 [facility] Work Phone: Blood lymphocytes/100 leukoc yteson 12-26-2021 Lymphocytes/100 WBC (Bld) 19.0 % 19-41 [facility] Work Phone: Blood monocytes/100 leukocyt eson 12-26-2021 Monocytes/100 WBC (Bld) 8.8 % 0-[address] [facility] Work Phone: Blood platelet mean volumeon 12-26-2021 Platelet mean volume (Bld) [Entitic vol] 10.3 fL 6.2-12.0 [facility] Work Phone: Determination of erythrocyte mean corpuscular volume (MCV)on 12-26-2021 MCV (RBC) [Entitic vol] 89.2 fL 80-[address] [facility] Work Phone: Hematocrit Auto (Bld) [Volum e fraction]on 12-26-2021 Hematocrit (Bld) [Volume fraction] 26.3 % 40-54 [facility] Work Phone: Hemoglobin in reticulocytes (mass per reticulocyte)Ordered By: Dr. Zapata on 12-26-2021 Hemoglobin (Reticulocytes) [Entitic mass] 28.7 pg 30-35 [facility] Iron measurement (mass/mass) on 12-26-2021 Iron (Unsp spec) [Mass/Mass] 54 ug/dL 65-175 [facility] Work Phone: Laboratory - Chemistry and C hemistry - challengeon 12-26-2021 ALP [Catalytic activity/Vol] 92 U/L 45-117 [facility] Work Phone: ALT [Catalytic activity/Vol] 24 U/L 16-61 [facility] Work Phone: CO2 [Moles/Vol] 25.0 mmol/L 21.0-32.0 [facility] Work Phone: Globulin (S) [Mass/Vol] 3.1 g/dL 2.2-4.[address] [facility] Work Phone: Urea nitrogen/Creatinine [Mass ratio] 16.9 mg/mg 10-20 [facility] Work Phone: Laboratory - Hematology and Cell countson 12-26-2021 Erythrocyte distribution width (RBC) [Entitic vol] 59.1 fL 35.1-43.9 [facility] Work Phone: Erythrocyte distribution width (RBC) [Ratio] 18.3 % 11.6-14.6 [facility] Work Phone: Immature granulocytes/100 WBC (Bld) 1.200 % 0.0-0.9 [facility] Work Phone: Comment on above: IG% - Immature Granu locytes (promyelocytes, myelocytes and metamyelocytes) > 1% indicates that a LEFT SHIFT is Present. MCH (RBC) [Entitic mass] 28.5 pg 27.0-32.0 [facility] Work Phone: Nucleated RBC/100 WBC (Bld) [Ratio] 0 % 0-5 [facility] Work Phone: MCHC Auto (RBC) [Mass/Vol]on 12-26-2021 MCHC (RBC) [Mass/Vol] 31.9 g/dL 32-36 [facility] Work Phone: No Panel Informationon 12-26 Estimated GFR (MDRD) Amer 78 mL/min >60 [facility] Work Phone: Comment on above: GFR Calc Estimated GFR (MDRD) Non-Af Amer 64 mL/min >60 [facility] Work Phone: Comment on above: Non- GFR Calc Immature Reticulocyte Fraction 31.90 % 3.00-15.90 [facility] Work Phone: Reticulocyte Count 3.23 % 0.5-1.5 [facility] Work Phone: Total Iron Binding Capacity 235 ug/dL 250-450 [facility] Work Phone: No Panel InformationOrdered By: Dr. Zapata on 12-26-2021 Immature Platelet Fraction 28.7 % 1.0-7.9 [facility] Comment on above: Low PLT + Low IPF joyce ggest a bone marrow production disorderLow PLT + high IPF suggests peripheral destruction(e.g.ITP, TTP, HIT, DIC, autoimmune) or bone marrow recoveryTrending of serial IPF measurements is recommended when evaluating for bone marrow responesValue above normal range indicates an increase in RBC cellular response from bone marrow. 3.23 % 0.5-1.5 [facility] 31.90 % 3.00-15.90 [facility] 28.7 % 1.0-7.9 [facility] Platelets bldon 12-26-2021 Platelets (Bld) [#/Vol] 221 10*3/uL 150-450 [facility] Work Phone: Serum or plasma albumin yocasta urement (mass/volume)on 12-26-2021 Albumin [Mass/Vol] 2.8 g/dL 3.2-5.0 [facility] Work Phone: Serum or plasma albumin/glob ulin mass ratioon 12-26-2021 Albumin/Globulin [Mass ratio] 0.9 {ratio} 0.9-2.4 [facility] Work Phone: Serum or plasma calcium yocasta urement (mass/volume)on 12-26-2021 Calcium [Mass/Vol] 8.4 mg/dL 8.5-10.1 [facility] Work Phone: Serum or plasma creatinine m easurement (mass/volume)on 12-26-2021 Creatinine [Mass/Vol] 1.18 mg/dL 0.70-1.30 [facility] Work Phone: Comment on above: The validity of the calculated GFR & GFRAA in patients over 70 years has not been determined. Clinical correlation is essential. Serum or plasma ferritin vasquez surement (mass/volume)on 12-26-2021 Ferritin [Mass/Vol] 160 ng/mL 26-388 [facility] Work Phone: Serum or plasma iron saturat ion measurement (mass fraction)on 12-26-2021 Iron saturation [Mass fraction] 23.0 % 15.0-55.0 [facility] Work Phone: Serum or plasma urea nitroge n measurement (mass/volume)on 12-26-2021 Urea nitrogen [Mass/Vol] 20 mg/dL 7-18 [facility] Work Phone: Thin prep Papanicolaou smear with manual screeningon 12-26-2021 Thin prep Papanicolaou smear with manual screening 13 U/L 15-37 [facility] Work Phone: Thin prep Papanicolaou smear with manual screening 6 5-15 [facility] Work Phone: Thin prep Papanicolaou smear with manual screening 213 U/L 87-241 [facility] Work Phone: Absolute lymphocyte countOrd ered By: Khai Galeana on 12-21-2021 Lymphocytes Auto (Unsp spec) [#/Vol] 1.52 10*3/uL 0.83-4.51 [facility] Basophil percentageOrdered B y: Khai Galeana on 12-21-2021 Basophils (Bld) [#/Vol] 10.1 10*3/uL 4.4-11.0 [facility] Basophils (Bld) [#/Vol] 6.5 10*3/uL 2.0-7.7 [facility] Basophils/100 WBC (Bld) 0.4 % 0-[address] [facility] Basophils/100 WBC (Bld) 64.3 % 47-[address] [facility] Basophils/100 WBC (Bld) 8.4 % 0-[address] [facility] Basophil percentageon 2021 Eosinophils/100 WBC (Bld) 8.4 % 0-5 [facility] Work Phone: Neutrophils (Bld) [#/Vol] 6.5 10*3/uL 2.0-7.7 [facility] Work Phone: Neutrophils/100 WBC (Bld) 64.3 % 47-70 [facility] Work Phone: WBC (Bld) [#/Vol] 10.1 10*3/uL 4.4-11.0 [facility] Work Phone: Blood erythrocytes count (nu mber/volume)Ordered By: Khai Galeana on 12-21-2021 RBC (Bld) [#/Vol] 3.50 10*6/uL 4.6-6.2 [facility] Blood hemoglobin measurement (mass/volume)Ordered By: Khai Galeana on 12-21-2021 Hemoglobin (Bld) [Mass/Vol] 9.8 g/dL 13.0-16.5 [facility] Blood lymphocytes/100 leukoc ytesOrdered By: Khai Galeana on 12-21-2021 Lymphocytes/100 WBC (Bld) 15.1 % 19-41 [facility] Blood monocytes/100 leukocyt esOrdered By: Khai Galeana on 12-21-2021 Monocytes/100 WBC (Bld) 9.6 % 0-[address] [facility] Blood platelet mean volumeOr dered By: Khai Galeana on 12-21-2021 Platelet mean volume (Bld) [Entitic vol] 10.8 fL 6.2-12.0 [facility] Determination of erythrocyte mean corpuscular volume (MCV)Ordered By: Khai Galeana on 12-21-2021 MCV (RBC) [Entitic vol] 90.0 fL 80-[address] [facility] Hematocrit Auto (Bld) [Volum e fraction]Ordered By: Khai Galeana on 12-21-2021 Hematocrit (Bld) [Volume fraction] 31.5 % 40-54 [facility] Laboratory - Hematology and Cell countson 12-21-2021 Erythrocyte distribution width (RBC) [Entitic vol] 63.5 fL 35.1-43.9 [facility] Work Phone: Erythrocyte distribution width (RBC) [Ratio] 19.1 % 11.6-14.6 [facility] Work Phone: Immature granulocytes/100 WBC (Bld) 2.200 % 0.0-0.9 [facility] Work Phone: Comment on above: IG% - Immature Granu locytes (promyelocytes, myelocytes and metamyelocytes) > 1% indicates that a LEFT SHIFT is Present. MCH (RBC) [Entitic mass] 28.0 pg 27.0-32.0 [facility] Work Phone: Nucleated RBC/100 WBC (Bld) [Ratio] 0 % 0-5 [facility] Work Phone: MCHC Auto (RBC) [Mass/Vol]Or dered By: Khai Galeana on 12-21-2021 MCHC (RBC) [Mass/Vol] 31.1 g/dL 32-36 [facility] No Panel InformationOrdered By: Khai Galeana on 12-21-2021 28.0 pg 27.0-32.0 [facility] 19.1 % 11.6-14.6 [facility] 63.5 fl 35.1-43.9 [facility] 2.200 % 0.0-0.9 [facility] 0 % 0-5 [facility] Platelets bldOrdered By: Wagner Galeana on 12-21-2021 Platelets (Bld) [#/Vol] 242 10*3/uL 150-450 [facility] No Panel InformationOrdered By: Dr. Joy on 12-14-2021 No growth in 5 days. [facility] Absolute lymphocyte countOrd ered By: Dr. Rosas on 12-11-2021 Lymphocytes Auto (Unsp spec) [#/Vol] 0.92 10*3/uL 0.83-4.51 [facility] Basophil percentageOrdered B y: Dr. Rosas on 12-11-2021 Basophil percentage 324 mg/dL 74-106 [facility] Basophil percentage 5.2 g/dL 6.4-8.2 [facility] Basophil percentage 0.30 mg/dL 0.20-1.00 [facility] Basophil percentage 141 mmol/L 136-145 [facility] Basophil percentage 5.0 mmol/L 3.5-5.1 [facility] Basophil percentage 109 mmol/L 98-107 [facility] Basophils (Bld) [#/Vol] 8.9 10*3/uL 4.4-11.0 [facility] Basophils (Bld) [#/Vol] 7.4 10*3/uL 2.0-7.7 [facility] Basophils/100 WBC (Bld) 0.1 % 0-[address] [facility] Basophils/100 WBC (Bld) 83.3 % 47-[address] [facility] Basophils/100 WBC (Bld) 0.0 % 0-[address] [facility] Basophil percentageon 10-18- 2022 Bilirubin [Mass/Vol] 0.30 mg/dL 0.20-1.00 [facility] Work Phone: Comment on above: For patients on eltr ombopag therapy, use of Dimension [place] TBIL is not recommended. Chloride [Moles/Vol] 109 mmol/L 98-107 [facility] Work Phone: Eosinophils/100 WBC (Bld) 0.0 % 0-5 [facility] Work Phone: [phone] Glucose [Mass/Vol] 324 mg/dL 74-106 [facility] Work Phone: [phone] Comment on above: Glucose result great er than or equal to 200 mg/dLsuggests DIABETES MELLITUS per A.D.A. criteria. Neutrophils (Bld) [#/Vol] 7.4 10*3/uL 2.0-7.7 [facility] Work Phone: Neutrophils/100 WBC (Bld) 83.3 % 47-70 [facility] Work Phone: Potassium [Moles/Vol] 5.0 mmol/L 3.5-5.1 [facility] Work Phone: Protein [Mass/Vol] 5.2 g/dL 6.4-8.2 [facility] Work Phone: [phone] Sodium [Moles/Vol] 141 mmol/L 136-145 [facility] Work Phone: [phone] WBC (Bld) [#/Vol] 8.9 10*3/uL 4.4-11.0 [facility] Work Phone: Blood erythrocytes count (nu mber/volume)Ordered By: Dr. Rosas on 12-11-2021 RBC (Bld) [#/Vol] 2.86 10*6/uL 4.6-6.2 [facility] Blood hemoglobin measurement (mass/volume)Ordered By: Dr. Rosas on 12-11-2021 Hemoglobin (Bld) [Mass/Vol] 8.1 g/dL 13.0-16.5 [facility] Blood lymphocytes/100 leukoc ytesOrdered By: Dr. Rosas on 12-11-2021 Lymphocytes/100 WBC (Bld) 10.4 % 19-41 [facility] Blood monocytes/100 leukocyt esOrdered By: Dr. Rosas on 12-11-2021 Monocytes/100 WBC (Bld) 4.7 % 0-[address] [facility] Blood platelet mean volumeOr dered By: Dr. Rosas on 12-11-2021 Platelet mean volume (Bld) [Entitic vol] 11.2 fL 6.2-12.0 [facility] Determination of erythrocyte mean corpuscular volume (MCV)Ordered By: Dr. Rosas on 12-11-2021 MCV (RBC) [Entitic vol] 88.5 fL 80-[address] [facility] Glucose Glucometer (BldC) [M ass/Vol]Ordered By: Dr. Ortiz on 12-11-2021 Glucose [Mass/Vol] 283 mg/dL 74-106 [facility] Comment on above: MANAGEMENT OF PATIEN T CARE PER NURSING PROTOCOL Hematocrit Auto (Bld) [Volum e fraction]Ordered By: Dr. Rosas on 12-11-2021 Hematocrit (Bld) [Volume fraction] 25.3 % 40-54 [facility] Laboratory - Chemistry and C hemistry - challengeon 12-11-2021 ALP [Catalytic activity/Vol] 66 U/L 45-117 [facility] Work Phone: ALT [Catalytic activity/Vol] 20 U/L 16-61 [facility] Work Phone: [phone] CO2 [Moles/Vol] 27.0 mmol/L 21.0-32.0 [facility] Work Phone: [phone] Globulin (S) [Mass/Vol] 2.7 g/dL 2.2-4.[address] [facility] Work Phone: [phone] Urea nitrogen/Creatinine [Mass ratio] 30.4 mg/mg 10-20 [facility] Work Phone: Laboratory - Hematology and Cell countson 12-11-2021 Erythrocyte distribution width (RBC) [Entitic vol] 56.6 fL 35.1-43.9 [facility] Work Phone: Erythrocyte distribution width (RBC) [Ratio] 17.5 % 11.6-14.6 [facility] Work Phone: Immature granulocytes/100 WBC (Bld) 1.500 % 0.0-0.9 [facility] Work Phone: Comment on above: IG% - Immature Granu locytes (promyelocytes, myelocytes and metamyelocytes) > 1% indicates that a LEFT SHIFT is Present. MCH (RBC) [Entitic mass] 28.3 pg 27.0-32.0 [facility] Work Phone: Nucleated RBC/100 WBC (Bld) [Ratio] 0.2 % 0-5 [facility] Work Phone: MCHC Auto (RBC) [Mass/Vol]Or dered By: Dr. Rosas on 12-11-2021 MCHC (RBC) [Mass/Vol] 32.0 g/dL 32-36 [facility] No Panel Informationon 12-11 Estimated Creatinine Clearance Calc 61.84 ml/min [facility] Work Phone: Estimated GFR (MDRD) Amer 80 mL/min >60 [facility] Work Phone: Comment on above: GFR Calc Estimated GFR (MDRD) Non-Af Amer 66 mL/min >60 [facility] Work Phone: Comment on above: Non- GFR Calc No Panel InformationOrdered By: Dr. Rosas on 12-11-2021 28.3 pg 27.0-32.0 [facility] 17.5 % 11.6-14.6 [facility] 56.6 fl 35.1-43.9 [facility] 1.500 % 0.0-0.9 [facility] 0.2 % 0-5 [facility] 66 mL/min >60 [facility] 80 mL/min >60 [facility] 61.84 ml/min [facility] 30.4 RATIO 10-20 [facility] 2.7 g/dL 2.2-4.2 [facility] 66 U/L 45-117 [facility] 20 U/L 16-61 [facility] 27.0 mmol/L 21.0-32.0 [facility] Platelets bldOrdered By: Dr. Rosas on 12-11-2021 Platelets (Bld) [#/Vol] 239 10*3/uL 150-450 [facility] Serum or plasma albumin yocasta urement (mass/volume)Ordered By: Dr. oRsas on 12-11-2021 Albumin [Mass/Vol] 2.5 g/dL 3.2-5.0 [facility] Serum or plasma albumin/glob ulin mass ratioOrdered By: Dr. Rosas on 12-11-2021 Albumin/Globulin [Mass ratio] 0.9 {ratio} 0.9-2.4 [facility] Serum or plasma calcium yocasta urement (mass/volume)Ordered By: Dr. Rosas on 12-11-2021 Calcium [Mass/Vol] 8.4 mg/dL 8.5-10.1 [facility] Serum or plasma creatinine m easurement (mass/volume)Ordered By: Dr. Rosas on 12-11-2021 Creatinine [Mass/Vol] 1.15 mg/dL 0.70-1.30 [facility] Comment on above: The validity of the calculated GFR & GFRAA in patients over 70 years has not been determined. Clinical correlation is essential. Serum or plasma urea nitroge n measurement (mass/volume)Ordered By: Dr. Rosas on 12-11-2021 Urea nitrogen [Mass/Vol] 35 mg/dL 7-18 [facility] Thin prep Papanicolaou smear with manual screeningOrdered By: Dr. Rosas on 12-11-2021 Thin prep Papanicolaou smear with manual screening 12 U/L 15-37 [facility] Thin prep Papanicolaou smear with manual screening 5 5-15 [facility] INR in Blood by Coagulation assayOrdered By: Dr. Chen on 12-10-2021 INR Coag (Bld) [Relative time] 1.2 {INR} [facility] Laboratory - Coagulationon 1 aPTT Coag (Bld) [Time] 24.6 s 24.1-36.2 [facility] Work Phone: PT Coag (PPP) [Time] 14.8 s 11.7-14.9 [facility] Work Phone: Microbial respiratory cultur eOrdered By: Dr. Joy on 12-10-2021 Bacteria identified Respiratory culture Nom (Unsp spec) or Staphylococcus aureus isolated. [facility] No Panel InformationOrdered By: Dr. Chen on 12-10-2021 14.8 SECONDS 11.7-14.9 [facility] 24.6 Seconds 24.1-36.2 [facility] Whole blood hemoglobin A1c/t otal hemoglobin ratio (mass fraction)Ordered By: Dr. Chen on 12-10-2021 HbA1c (Bld) [Mass fraction] 8.5 % 3.8-5.6 [facility] Comment on above: Normal < 5.7 % Predi abetic 5.7 - 6.4 % Diabetic >or= 6.5 % Please note range changes. Gram stain for investigation of transfusion reactionOrdered By: Dr. Joy on 12-09-2021 Microscopic observation Gram stain Nom (Unsp spec) [facility] Lower GI hemoglobin IA Ql (S tl)Ordered By: Dr. Rosas on 12-09-2021 Stool gastrointestinal hemoglobin detection by immunologic method Positive [facility] Respiratory pathogens DNA an d RNA 12b panel JUSTIN+probe (Unsp spec)Ordered By: Dr. Mackey on 12-09-2021 Rhinovirus [facility] Urine Legionella pneumophila antigen detectionOrdered By: Dr. Mackey on 12-09-2021 L. pneumophila Ag Ql (U) [facility] Absolute lymphocyte counton 12-08-2021 Lymphocytes Auto (Unsp spec) [#/Vol] 1.72 10*3/uL 0.83-4.51 [facility] Work Phone: Basophil percentageon 2021 Basophils/100 WBC (Bld) 0.7 % 0-[address] [facility] Work Phone: Chloride [Moles/Vol] 110 mmol/L 98-107 [facility] Work Phone: [phone] Eosinophils/100 WBC (Bld) 3.8 % 0-5 [facility] Work Phone: Glucose [Mass/Vol] 200 mg/dL 74-106 [facility] Work Phone: Comment on above: Glucose result great er than or equal to 200 mg/dLsuggests DIABETES MELLITUS per A.D.A. criteria. Neutrophils (Bld) [#/Vol] 7.9 10*3/uL 2.0-7.7 [facility] Work Phone: Neutrophils/100 WBC (Bld) 68.8 % 47-70 [facility] Work Phone: Potassium [Moles/Vol] 4.0 mmol/L 3.5-5.1 [facility] Work Phone: Sodium [Moles/Vol] 143 mmol/L 136-145 [facility] Work Phone: [phone] WBC (Bld) [#/Vol] 11.5 10*3/uL 4.4-11.0 [facility]: Blood erythrocytes count (nu mber/volume)on 12-08-2021 RBC (Bld) [#/Vol] 3.36 10*6/uL 4.6-6.2 [facility] Work Phone: Blood hemoglobin measurement (mass/volume)on 12-08-2021 Hemoglobin (Bld) [Mass/Vol] 9.0 g/dL 13.0-16.5 [facility] Work Phone: Blood lymphocytes/100 leukoc yteson 12-08-2021 Lymphocytes/100 WBC (Bld) 15.0 % 19-41 [facility] Work Phone: [phone] Blood monocytes/100 leukocyt eson 12-08-2021 Monocytes/100 WBC (Bld) 9.0 % 0-[address] [facility] Work Phone: Blood platelet mean volumeon 12-08-2021 Platelet mean volume (Bld) [Entitic vol] 9.9 fL 6.2-12.0 [facility] Work Phone: Determination of erythrocyte mean corpuscular volume (MCV)on 12-08-2021 MCV (RBC) [Entitic vol] 88.7 fL 80-[address] [facility] Work Phone: Hematocrit Auto (Bld) [Volum e fraction]on 12-08-2021 Hematocrit (Bld) [Volume fraction] 29.8 % 40-54 [facility] Work Phone: Laboratory - Chemistry and C hemistry - challengeon 12-08-2021 CO2 [Moles/Vol] 26.0 mmol/L 21.0-32.0 [facility] Work Phone: Natriuretic peptide B (Bld) [Mass/Vol] 191.0 pg/mL 0-100 [facility] Work Phone: Urea nitrogen/Creatinine [Mass ratio] 19.3 mg/mg 10-20 [facility] Work Phone: Laboratory - Hematology and Cell countson 12-08-2021 Erythrocyte distribution width (RBC) [Entitic vol] 57.9 fL 35.1-43.9 [facility] Work Phone: Erythrocyte distribution width (RBC) [Ratio] 17.9 % 11.6-14.6 [facility] Work Phone: Immature granulocytes/100 WBC (Bld) 2.700 % 0.0-0.9 [facility] Work Phone: Comment on above: IG% - Immature Granu locytes (promyelocytes, myelocytes and metamyelocytes) > 1% indicates that a LEFT SHIFT is Present. MCH (RBC) [Entitic mass] 26.8 pg 27.0-32.0 [facility] Work Phone: Nucleated RBC/100 WBC (Bld) [Ratio] 0 % 0-5 [facility] Work Phone: MCHC Auto (RBC) [Mass/Vol]on 12-08-2021 MCHC (RBC) [Mass/Vol] 30.2 g/dL 32-36 [facility] Work Phone: No Panel Informationon 10-15 -2022 Methicillin-Resist S.aureus DNA PCR Negative Negative [facility] Work Phone: D-Dimer Quantitative (PE/DVT) 1.50 FEU/ug/m 0.27-0.49 [facility] Work Phone: Comment on above: CRITICAL VALUE VERIF IED. CALLED TO [id number] Tim Oliva.RESULTS READ BACK BY SAME . D-Dimer ELEVATED (>0.49): Additional studies and clinicalassessments are indicated to conclude diagnosis of:Deep Vein Thrombosis (DVT) or Pulmonary Embolism (PE) Estimated Creatinine Clearance Calc 59.76 ml/min [facility] Work Phone: Estimated GFR (MDRD) Amer 77 mL/min >60 [facility] Work Phone: Comment on above: GFR Calc Estimated GFR (MDRD) Non-Af Amer 64 mL/min >60 [facility] Work Phone: Comment on above: Non- GFR Calc Troponin I High Sensitivity 11 pg/mL 3.0-78.0 [facility] Work Phone: Comment on above: Please Note: New Jennifer t Units and Gender Specific Reference Ranges. For more information see Policy Stat Procedure [place] High Sensitivity Troponin (TNIH) and attachments. No Panel InformationOrdered By: Dr. Mackey on 12-08-2021 Negative Negative [facility] No Panel InformationOrdered By: Dr. Joy on 12-08-2021 1.50 FEU/ug/m 0.27-0.49 [facility] 11 pg/mL 3.0-78.0 [facility] 191.0 pg/mL 0-100 [facility] Platelets bldon 12-08-2021 Platelets (Bld) [#/Vol] 352 10*3/uL 150-450 [facility] Work Phone: Serum or plasma calcium yocasta urement (mass/volume)on 12-08-2021 Calcium [Mass/Vol] 9.1 mg/dL 8.5-10.1 [facility] Work Phone: Serum or plasma creatinine m easurement (mass/volume)on 12-08-2021 Creatinine [Mass/Vol] 1.19 mg/dL 0.70-1.30 [facility] Work Phone: Comment on above: The validity of the calculated GFR & GFRAA in patients over 70 years has not been determined. Clinical correlation is essential. Serum or plasma urea nitroge n measurement (mass/volume)on 12-08-2021 Urea nitrogen [Mass/Vol] 23 mg/dL 7-18 [facility] Work Phone: Thin prep Papanicolaou smear with manual screeningon 12-08-2021 Thin prep Papanicolaou smear with manual screening 7 07-08 [facility] Work Phone: Basophil percentageon 2021 WBC (Bld) [#/Vol] 8.6 10*3/uL 4.4-11.0 [facility] Work Phone: Blood erythrocytes count (nu mber/volume)on 11-16-2021 RBC (Bld) [#/Vol] 3.80 10*6/uL 4.6-6.2 [facility] Work Phone: Blood hemoglobin measurement (mass/volume)on 11-16-2021 Hemoglobin (Bld) [Mass/Vol] 10.2 g/dL 13.0-16.5 [facility] Work Phone: Blood platelet mean volumeon 11-16-2021 Platelet mean volume (Bld) [Entitic vol] 10.9 fL 6.2-12.0 [facility] Work Phone: Determination of erythrocyte mean corpuscular volume (MCV)on 11-16-2021 MCV (RBC) [Entitic vol] 88.2 fL 80-[address] [facility] Work Phone: Hematocrit Auto (Bld) [Volum e fraction]on 11-16-2021 Hematocrit (Bld) [Volume fraction] 33.5 % 40-54 [facility] Work Phone: Laboratory - Hematology and Cell countson 11-16-2021 Erythrocyte distribution width (RBC) [Entitic vol] 56.0 fL 35.1-43.9 [facility] Work Phone: Erythrocyte distribution width (RBC) [Ratio] 17.5 % 11.6-14.6 [facility] Work Phone: MCH (RBC) [Entitic mass] 26.8 pg 27.0-32.0 [facility] Work Phone: MCHC Auto (RBC) [Mass/Vol]on 11-16-2021 MCHC (RBC) [Mass/Vol] 30.4 g/dL 32-36 [facility] Work Phone: Platelets bldon 11-16-2021 Platelets (Bld) [#/Vol] 218 10*3/uL 150-450 [facility] Work Phone: Absolute lymphocyte counton 10-26-2021 Lymphocytes Auto (Unsp spec) [#/Vol] 0.85 10*3/uL 0.83-4.51 [facility] Work Phone: Basophil percentageon 2021 Basophils/100 WBC (Bld) 0.2 % 0-[address] [facility] Work Phone: Bilirubin [Mass/Vol] 0.40 mg/dL 0.20-1.00 [facility] Work Phone: [phone] Comment on above: For patients on eltr ombopag therapy, use of Dimension [place] TBIL is not recommended. Chloride [Moles/Vol] 106 mmol/L 98-107 [facility] Work Phone: [phone] Eosinophils/100 WBC (Bld) 0.3 % 0-5 [facility] Work Phone: Glucose [Mass/Vol] 120 mg/dL 74-106 [facility] Work Phone: Comment on above: Fasting Glucose resu lt from 100 to 125 mg/dL suggests IMPAIRED HOMEOSTASIS per A.D.A. criteria. Neutrophils (Bld) [#/Vol] 6.8 10*3/uL 2.0-7.7 [facility] [facility]: Neutrophils/100 WBC (Bld) 75.9 % 47-70 [facility] Work Phone: Potassium [Moles/Vol] 4.0 mmol/L 3.5-5.1 [facility] Work Phone: Protein [Mass/Vol] 5.3 g/dL 6.4-8.2 [facility] Work Phone: Sodium [Moles/Vol] 143 mmol/L 136-145 [facility] Work Phone: WBC (Bld) [#/Vol] 8.9 10*3/uL 4.4-11.0 [facility] Work Phone: Blood erythrocytes count (nu mber/volume)on 10-26-2021 RBC (Bld) [#/Vol] 3.44 10*6/uL 4.6-6.2 [facility]: Blood hemoglobin measurement (mass/volume)on 10-26-2021 Hemoglobin (Bld) [Mass/Vol] 9.0 g/dL 13.0-16.5 [facility] Work Phone: Blood lymphocytes/100 leukoc yteson 10-26-2021 Lymphocytes/100 WBC (Bld) 9.6 % 19-41 [facility] Work Phone: [phone] Blood monocytes/100 leukocyt eson 10-26-2021 Monocytes/100 WBC (Bld) 12.5 % 0-[address] [facility] Work Phone: Blood platelet mean volumeon 10-26-2021 Platelet mean volume (Bld) [Entitic vol] 10.2 fL 6.2-12.0 [facility] Work Phone: Determination of erythrocyte mean corpuscular volume (MCV)on 10-26-2021 MCV (RBC) [Entitic vol] 85.5 fL 80-[address] [facility] Work Phone: Glucose Glucometer (BldC) [M ass/Vol]on 10-26-2021 Glucose [Mass/Vol] 236 mg/dL 74-106 [facility]: Comment on above: MANAGEMENT OF PATIEN T CARE PER NURSING PROTOCOL Hematocrit Auto (Bld) [Volum e fraction]on 10-26-2021 Hematocrit (Bld) [Volume fraction] 29.4 % 40-54 [facility] Work Phone: Laboratory - Chemistry and C hemistry - challengeon 10-26-2021 ALP [Catalytic activity/Vol] 71 U/L 45-117 [facility] Work Phone: ALT [Catalytic activity/Vol] 11 U/L 16-61 [facility] Work Phone: CO2 [Moles/Vol] 30.0 mmol/L 21.0-32.0 [facility] Work Phone: Globulin (S) [Mass/Vol] 2.6 g/dL 2.2-4.[address] [facility] Work Phone: Urea nitrogen/Creatinine [Mass ratio] 20.3 mg/mg 10-20 [facility] Work Phone: Laboratory - Hematology and Cell countson 10-26-2021 Erythrocyte distribution width (RBC) [Entitic vol] 49.1 fL 35.1-43.9 [facility] Work Phone: Erythrocyte distribution width (RBC) [Ratio] 15.9 % 11.6-14.6 [facility] Work Phone: Immature granulocytes/100 WBC (Bld) 1.500 % 0.0-0.9 [facility] Work Phone: Comment on above: IG% - Immature Granu locytes (promyelocytes, myelocytes and metamyelocytes) > 1% indicates that a LEFT SHIFT is Present. MCH (RBC) [Entitic mass] 26.2 pg 27.0-32.0 [facility] Work Phone: Nucleated RBC/100 WBC (Bld) [Ratio] 0 % 0-5 [facility] Work Phone: MCHC Auto (RBC) [Mass/Vol]on 10-26-2021 MCHC (RBC) [Mass/Vol] 30.6 g/dL 32-36 [facility] Work Phone: No Panel Informationon 10-26 Estimated Creatinine Clearance Calc 55.56 ml/min [facility] Work Phone: Estimated GFR (MDRD) Amer 71 mL/min >60 [facility] Work Phone: Comment on above: GFR Calc Estimated GFR (MDRD) Non-Af Amer 59 mL/min >60 [facility] Work Phone: Comment on above: Non- GFR Calc Platelets bldon 10-26-2021 Platelets (Bld) [#/Vol] 316 10*3/uL 150-450 [facility] Work Phone: Serum or plasma albumin yocasta urement (mass/volume)on 10-26-2021 Albumin [Mass/Vol] 2.7 g/dL 3.2-5.0 [facility] Work Phone: Serum or plasma albumin/glob ulin mass ratioon 10-26-2021 Albumin/Globulin [Mass ratio] 1.0 {ratio} 0.9-2.4 [facility] Work Phone: Serum or plasma calcium yocasta urement (mass/volume)on 10-26-2021 Calcium [Mass/Vol] 8.7 mg/dL 8.5-10.1 [facility] Work Phone: Serum or plasma creatinine m easurement (mass/volume)on 10-26-2021 Creatinine [Mass/Vol] 1.28 mg/dL 0.70-1.30 [facility] Work Phone: Comment on above: The validity of the calculated GFR & GFRAA in patients over 70 years has not been determined. Clinical correlation is essential. Serum or plasma urea nitroge n measurement (mass/volume)on 10-26-2021 Urea nitrogen [Mass/Vol] 26 mg/dL 7-18 [facility] Work Phone: Thin prep Papanicolaou smear with manual screeningon 10-26-2021 Thin prep Papanicolaou smear with manual screening 8 U/L 15-37 [facility] Work Phone: Thin prep Papanicolaou smear with manual screening 7 5-15 [facility] Work Phone: Direct bilirubinon 2 Bilirubin.direct [Mass/Vol] 0.13 mg/dL 0.00-0.30 [facility] Work Phone: INR in Blood by Coagulation assayon 10-25-2021 INR Coag (Bld) [Relative time] 1.1 {INR} [facility] Work Phone: Laboratory - Coagulationon 0 10-25-2021 aPTT Coag (Bld) [Time] 32.7 s 24.1-36.2 [facility] Work Phone: PT Coag (PPP) [Time] 13.6 s 11.7-14.9 [facility] Work Phone: Whole blood hemoglobin A1c/t otal hemoglobin ratio (mass fraction)on 10-25-2021 HbA1c (Bld) [Mass fraction] 6.5 % 3.8-5.6 [facility] Work Phone: Comment on above: Normal < 5.7 % Predi abetic 5.7 - 6.4 % Diabetic >or= 6.5 % Please note range changes. Laboratory - Chemistry and C hemistry - challengeon 10-24-2021 Natriuretic peptide B (Bld) [Mass/Vol] 249.7 pg/mL 0-100 [facility] Work Phone: Basophil percentageon 2021 Lactate [Moles/Vol] 1.0 mmol/L 0.4-2.0 [facility] Work Phone: No Panel Informationon 10-23 Troponin I High Sensitivity 10 pg/mL 3.0-78.0 [facility] Work Phone: Comment on above: Please Note: New Jennifer t Units and Gender Specific Reference Ranges. For more information see Policy Stat Procedure [place] High Sensitivity Troponin (TNIH) and attachments. Absolute lymphocyte counton 10-02-2021 Lymphocytes Auto (Unsp spec) [#/Vol] 1.26 10*3/uL 0.83-4.51 [facility] Work Phone: Basophil percentageon 2021 Basophils/100 WBC (Bld) 0.9 % 0-[address] [facility] Work Phone: Bilirubin [Mass/Vol] 0.30 mg/dL 0.20-1.00 [facility] Work Phone: Comment on above: For patients on eltr ombopag therapy, use of Dimension [place] TBIL is not recommended. Chloride [Moles/Vol] 110 mmol/L 98-107 [facility] Work Phone: Eosinophils/100 WBC (Bld) 12.4 % 0-5 [facility] Work Phone: Glucose [Mass/Vol] 96 mg/dL 74-106 [facility] Work Phone: Neutrophils (Bld) [#/Vol] 4.4 10*3/uL 2.0-7.7 [facility] Work Phone: Neutrophils/100 WBC (Bld) 55.3 % 47-70 [facility] Work Phone: Potassium [Moles/Vol] 3.9 mmol/L 3.5-5.1 [facility] Work Phone: Protein [Mass/Vol] 5.2 g/dL 6.4-8.2 [facility] Work Phone: Sodium [Moles/Vol] 141 mmol/L 136-145 [facility] Work Phone: WBC (Bld) [#/Vol] 8.0 10*3/uL 4.4-11.0 [facility] Work Phone: Blood erythrocytes count (nu mber/volume)on 10-02-2021 RBC (Bld) [#/Vol] 2.90 10*6/uL 4.6-6.2 [facility] Work Phone: Blood hemoglobin measurement (mass/volume)on 10-02-2021 Hemoglobin (Bld) [Mass/Vol] 8.0 g/dL 13.0-16.5 [facility] Work Phone: Blood lymphocytes/100 leukoc yteson 10-02-2021 Lymphocytes/100 WBC (Bld) 15.7 % 19-41 [facility] Work Phone: Blood monocytes/100 leukocyt eson 10-02-2021 Monocytes/100 WBC (Bld) 15.0 % 0-[address] [facility] Work Phone: Blood platelet mean volumeon 10-02-2021 Platelet mean volume (Bld) [Entitic vol] 10.3 fL 6.2-12.0 [facility] Work Phone: Determination of erythrocyte mean corpuscular volume (MCV)on 10-02-2021 MCV (RBC) [Entitic vol] 89.3 fL 80-[address] [facility] Work Phone: Glucose Glucometer (BldC) [M ass/Vol]on 10-02-2021 Glucose [Mass/Vol] 246 mg/dL 74-106 [facility] Work Phone: Comment on above: MANAGEMENT OF PATIEN T CARE PER NURSING PROTOCOL Hematocrit Auto (Bld) [Volum e fraction]on 10-02-2021 Hematocrit (Bld) [Volume fraction] 25.9 % 40-54 [facility] Work Phone: Laboratory - Chemistry and C hemistry - challengeon 10-02-2021 ALP [Catalytic activity/Vol] 71 U/L 45-117 [facility] Work Phone: ALT [Catalytic activity/Vol] 12 U/L 16-61 [facility] Work Phone: CO2 [Moles/Vol] 25.0 mmol/L 21.0-32.0 [facility] Work Phone: Globulin (S) [Mass/Vol] 3.0 g/dL 2.2-4.[address] [facility] Work Phone: Urea nitrogen/Creatinine [Mass ratio] 22.2 mg/mg 10-20 [facility] Work Phone: Laboratory - Hematology and Cell countson 10-02-2021 Erythrocyte distribution width (RBC) [Entitic vol] 51.6 fL 35.1-43.9 [facility] Work Phone: Erythrocyte distribution width (RBC) [Ratio] 15.7 % 11.6-14.6 [facility] Work Phone: Immature granulocytes/100 WBC (Bld) 0.700 % 0.0-0.9 [facility] Work Phone: Comment on above: IG% - Immature Granu locytes (promyelocytes, myelocytes and metamyelocytes) > 1% indicates that a LEFT SHIFT is Present. MCH (RBC) [Entitic mass] 27.6 pg 27.0-32.0 [facility] Work Phone: Nucleated RBC/100 WBC (Bld) [Ratio] 0 % 0-5 [facility] Work Phone: MCHC Auto (RBC) [Mass/Vol]on 10-02-2021 MCHC (RBC) [Mass/Vol] 30.9 g/dL 32-36 [facility] Work Phone: No Panel Informationon 10-02 Methicillin-Resist S.aureus DNA PCR Negative Negative [facility] Work Phone: Estimated Creatinine Clearance Calc 60.78 ml/min [facility] Work Phone: Estimated GFR (MDRD) Amer 79 mL/min >60 [facility] Work Phone: Comment on above: GFR Calc Estimated GFR (MDRD) Non-Af Amer 65 mL/min >60 [facility] Work Phone: Comment on above: Non- GFR Calc Platelets bldon 10-02-2021 Platelets (Bld) [#/Vol] 278 10*3/uL 150-450 [facility] Work Phone: Serum or plasma albumin yocasta urement (mass/volume)on 10-02-2021 Albumin [Mass/Vol] 2.2 g/dL 3.2-5.0 [facility] Work Phone: Serum or plasma albumin/glob ulin mass ratioon 10-02-2021 Albumin/Globulin [Mass ratio] 0.7 {ratio} 0.9-2.4 [facility] Work Phone: Serum or plasma calcium yocasta urement (mass/volume)on 10-02-2021 Calcium [Mass/Vol] 8.2 mg/dL 8.5-10.1 [facility] Work Phone: Serum or plasma creatinine m easurement (mass/volume)on 10-02-2021 Creatinine [Mass/Vol] 1.17 mg/dL 0.70-1.30 [facility] Work Phone: Comment on above: The validity of the calculated GFR & GFRAA in patients over 70 years has not been determined. Clinical correlation is essential. Serum or plasma urea nitroge n measurement (mass/volume)on 10-02-2021 Urea nitrogen [Mass/Vol] 26 mg/dL 7-18 [facility] Work Phone: Thin prep Papanicolaou smear with manual screeningon 10-02-2021 Thin prep Papanicolaou smear with manual screening 10 U/L 15-37 [facility] Work Phone: Thin prep Papanicolaou smear with manual screening 6 5-15 [facility] Work Phone: Whole blood hemoglobin A1c/t otal hemoglobin ratio (mass fraction)on 10-02-2021 HbA1c (Bld) [Mass fraction] 6.0 % 3.8-5.6 [facility] Work Phone: Comment on above: Normal < 5.7 % Predi abetic 5.7 - 6.4 % Diabetic >or= 6.5 % Please note range changes. Absolute lymphocyte counton 10-01-2021 Lymphocytes Auto (Unsp spec) [#/Vol] 1.71 10*3/uL 0.83-4.51 [facility] Work Phone: Basophil percentageon 2021 Basophils/100 WBC (Bld) 0.6 % 0-[address] [facility] Work Phone: Chloride [Moles/Vol] 108 mmol/L 98-107 [facility] Work Phone: Eosinophils/100 WBC (Bld) 4.5 % 0-5 [facility] Work Phone: Glucose [Mass/Vol] 158 mg/dL 74-106 [facility] Work Phone: [phone] Comment on above: Fasting Glucose resu lt greater than or equal to 126 mg/dL suggests DIABETES MELLITUS per A.D.A. criteria. Lactate [Moles/Vol] 1.2 mmol/L 0.4-2.0 [facility]: Neutrophils (Bld) [#/Vol] 9.8 10*3/uL 2.0-7.7 [facility] Work Phone: Neutrophils/100 WBC (Bld) 70.1 % 47-70 [facility] Work Phone: Potassium [Moles/Vol] 4.1 mmol/L 3.5-5.1 [facility] Work Phone: [phone] Sodium [Moles/Vol] 141 mmol/L 136-145 [facility] Work Phone: WBC (Bld) [#/Vol] 13.9 10*3/uL 4.4-11.0 [facility] Work Phone: [phone] Blood erythrocytes count (nu mber/volume)on 10-01-2021 RBC (Bld) [#/Vol] 3.29 10*6/uL 4.6-6.2 [facility] Work Phone: Blood hemoglobin measurement (mass/volume)on 10-01-2021 Hemoglobin (Bld) [Mass/Vol] 8.7 g/dL 13.0-16.5 [facility] Work Phone: Blood lymphocytes/100 leukoc yteson 10-01-2021 Lymphocytes/100 WBC (Bld) 12.3 % 19-41 [facility] Work Phone: Blood monocytes/100 leukocyt eson 10-01-2021 Monocytes/100 WBC (Bld) 11.6 % 0-[address] [facility] Work Phone: Blood platelet adequacy dete ction by light microscopyon 10-01-2021 Platelets LM Ql (Bld) ADEQUATE ADEQ [facility] Work Phone: Blood platelet mean volumeon 10-01-2021 Platelet mean volume (Bld) [Entitic vol] 11.0 fL 6.2-12.0 [facility] Work Phone: Determination of erythrocyte mean corpuscular volume (MCV)on 10-01-2021 MCV (RBC) [Entitic vol] 87.2 fL 80-[address] [facility] Work Phone: Hematocrit Auto (Bld) [Volum e fraction]on 10-01-2021 Hematocrit (Bld) [Volume fraction] 28.7 % 40-54 [facility] Work Phone: Laboratory - Chemistry and C hemistry - challengeon 10-01-2021 CO2 [Moles/Vol] 27.0 mmol/L 21.0-32.0 [facility] Work Phone: Natriuretic peptide B (Bld) [Mass/Vol] 244.9 pg/mL 0-100 [facility] Work Phone: Urea nitrogen/Creatinine [Mass ratio] 18.9 mg/mg 10-20 [facility] Work Phone: Laboratory - Hematology and Cell countson 10-01-2021 Erythrocyte distribution width (RBC) [Entitic vol] 49.9 fL 35.1-43.9 [facility] Work Phone: Erythrocyte distribution width (RBC) [Ratio] 15.5 % 11.6-14.6 [facility] Work Phone: Immature granulocytes/100 WBC (Bld) 0.900 % 0.0-0.9 [facility] Work Phone: Comment on above: IG% - Immature Granu locytes (promyelocytes, myelocytes and metamyelocytes) > 1% indicates that a LEFT SHIFT is Present. MCH (RBC) [Entitic mass] 26.4 pg 27.0-32.0 [facility] Work Phone: Nucleated RBC/100 WBC (Bld) [Ratio] 0 % 0-5 [facility] Work Phone: Laboratory - Microbiology an d Antimicrobial susceptibilityon 10-01-2021 SARS-CoV-2 (COVID-19) RNA JUSTIN+probe Ql (Unsp spec) Not detected Not Detect [facility] Work Phone: Comment on above: Normal [...] 10-01-2021 MCHC (RBC) [Mass/Vol] 30.3 g/dL 32-36 [facility] Work Phone: No Panel Informationon 10-01 Estimated Creatinine Clearance Calc 48.05 ml/min [facility] Work Phone: Estimated GFR (MDRD) Amer 60 mL/min >60 [facility] Work Phone: Comment on above: GFR Calc Estimated GFR (MDRD) Non-Af Amer 50 mL/min >60 [facility] Work Phone: Comment on above: Non- GFR Calc Troponin I High Sensitivity 13 pg/mL 3.0-78.0 [facility] Work Phone: Comment on above: Please Note: New Jennifer t Units and Gender Specific Reference Ranges. For more information see Policy Stat Procedure [place] High Sensitivity Troponin (TNIH) and attachments. Platelets bldon 10-01-2021 Platelets (Bld) [#/Vol] 441 10*3/uL 150-450 [facility] Work Phone: RBC morphologyon 10-01-2021 RBC morphology finding Nom (Bld) NORM C+C NORMAL NORM C&C [facility] Work Phone: Review by pathologiston Pathologist review Sohan (Unsp spec) [Interp] Josephine hair [facility] Work Phone: Pathologist review Sohan (Unsp spec) [Interp] Reviewed [facility] Work Phone: Comment on above: Previous reported re sult: Josephine hair Edited by: RGOCARLA on 10/02/21:1304Neutrophilic leukocytosis.Normocytic anemia.Clinical correlation necessary.Mc Urias M.D. 10/02/21 AMENDED REPORT 10/02/21 [id number] PATH REV previously reported as: Josephine hair Serum or plasma calcium yocasta urement (mass/volume)on 10-01-2021 Calcium [Mass/Vol] 9.0 mg/dL 8.5-10.1 [facility] Work Phone: Serum or plasma creatinine m easurement (mass/volume)on 10-01-2021 Creatinine [Mass/Vol] 1.48 mg/dL 0.70-1.30 [facility] Work Phone: Comment on above: The validity of the calculated GFR & GFRAA in patients over 70 years has not been determined. Clinical correlation is essential. Serum or plasma urea nitroge n measurement (mass/volume)on 10-01-2021 Urea nitrogen [Mass/Vol] 28 mg/dL 7-18 [facility] Work Phone: Serum procalcitonin measurem enton 10-01-2021 Procalcitonin [Mass/Vol] 0.21 ng/mL 0.00-0.09 [facility] Work Phone: Comment on above: A [...] Papanicolaou smear with manual screening 6 5-15 [facility] Work Phone: Absolute lymphocyte counton 08-07-2021 Lymphocytes Auto (Unsp spec) [#/Vol] 1.59 10*3/uL 0.83-4.51 [facility] Work Phone: Basophil percentageon 2021 Basophils/100 WBC (Bld) 0.2 % 0-[address] [facility] Work Phone: Chloride [Moles/Vol] 113 mmol/L 98-107 [facility] Work Phone: Eosinophils/100 WBC (Bld) 0.7 % 0-5 [facility] Work Phone: Glucose [Mass/Vol] 131 mg/dL 74-106 [facility] Work Phone: Comment on above: Fasting Glucose resu lt greater than or equal to 126 mg/dL suggests DIABETES MELLITUS per A.D.A. criteria. Neutrophils (Bld) [#/Vol] 5.5 10*3/uL 2.0-7.7 [facility] Work Phone: Neutrophils/100 WBC (Bld) 67.5 % 47-70 [facility] Work Phone: Potassium [Moles/Vol] 3.6 mmol/L 3.5-5.1 [facility] Work Phone: Sodium [Moles/Vol] 142 mmol/L 136-145 [facility] Work Phone: WBC (Bld) [#/Vol] 8.1 10*3/uL 4.4-11.0 [facility] Work Phone: Blood erythrocytes count (nu mber/volume)on 08-07-2021 RBC (Bld) [#/Vol] 2.63 10*6/uL 4.6-6.2 [facility] Work Phone: Blood hemoglobin measurement (mass/volume)on 08-07-2021 Hemoglobin (Bld) [Mass/Vol] 8.7 g/dL 13.0-16.5 [facility] Work Phone: Blood lymphocytes/100 leukoc yteson 08-07-2021 Lymphocytes/100 WBC (Bld) 19.6 % 19-41 [facility] Work Phone: Blood monocytes/100 leukocyt eson 08-07-2021 Monocytes/100 WBC (Bld) 11.6 % 0-[address] [facility] Work Phone: Blood platelet mean volumeon 08-07-2021 Platelet mean volume (Bld) [Entitic vol] 10.1 fL 6.2-12.0 [facility] Work Phone: Determination of erythrocyte mean corpuscular volume (MCV)on 08-07-2021 MCV (RBC) [Entitic vol] 84.8 fL 80-[address] [facility] Work Phone: Glucose Glucometer (BldC) [M ass/Vol]on 08-07-2021 Glucose [Mass/Vol] 146 mg/dL 74-106 [facility] Work Phone: Comment on above: MANAGEMENT OF PATIEN T CARE PER NURSING PROTOCOL Hematocrit Auto (Bld) [Volum e fraction]on 08-07-2021 Hematocrit (Bld) [Volume fraction] 27.3 % 40-54 [facility] Work Phone: Iron measurement (mass/mass) on 08-07-2021 Iron (Unsp spec) [Mass/Mass] 14 ug/dL 65-175 [facility] Work Phone: Laboratory - Chemistry and C hemistry - challengeon 08-07-2021 Cobalamin (Vitamin B12) [Mass/Vol] 1092 pg/mL 211-911 [facility] Work Phone: CO2 [Moles/Vol] 22.0 mmol/L 21.0-32.0 [facility] Work Phone: Urea nitrogen/Creatinine [Mass ratio] 29.4 mg/mg 10-20 [facility] Work Phone: Laboratory - Hematology and Cell countson 08-07-2021 Erythrocyte distribution width (RBC) [Entitic vol] 47.6 fL 35.1-43.9 [facility] Work Phone: Erythrocyte distribution width (RBC) [Ratio] 15.5 % 11.6-14.6 [facility] Work Phone: Immature granulocytes/100 WBC (Bld) 0.400 % 0.0-0.9 [facility] Work Phone: Comment on above: IG% - Immature Granu locytes (promyelocytes, myelocytes and metamyelocytes) > 1% indicates that a LEFT SHIFT is Present. MCH (RBC) [Entitic mass] 26.6 pg 27.0-32.0 [facility] Work Phone: Nucleated RBC/100 WBC (Bld) [Ratio] 0 % 0-5 [facility] Work Phone: MCHC Auto (RBC) [Mass/Vol]on 08-07-2021 MCHC (RBC) [Mass/Vol] 31.4 g/dL 32-36 [facility] Work Phone: No Panel Informationon 08-07 Total Iron Binding Capacity 133 ug/dL 250-450 [facility] Work Phone: Estimated Creatinine Clearance Calc 72.16 ml/min [facility] Work Phone: Estimated GFR (MDRD) Amer 126 mL/min >60 [facility] Work Phone: Comment on above: GFR Calc Estimated GFR (MDRD) Non-Af Amer 104 mL/min >60 [facility] Work Phone: Comment on above: Non- GFR Calc Platelets bldon 08-07-2021 Platelets (Bld) [#/Vol] 206 10*3/uL 150-450 [facility] Work Phone: Serum or plasma calcium yocasta urement (mass/volume)on 08-07-2021 Calcium [Mass/Vol] 5.4 mg/dL 8.5-10.1 [facility] Work Phone: Comment on above: Critical Result(s) C alled at: 06:53:34 08/07/2021 by: Van Foy. Edi Banegas RN (MS3). Results read back by same. Serum or plasma creatinine m easurement (mass/volume)on 08-07-2021 Creatinine [Mass/Vol] 0.78 mg/dL 0.70-1.30 [facility] Work Phone: Comment on above: The validity of the calculated GFR & GFRAA in patients over 70 years has not been determined. Clinical correlation is essential. Serum or plasma ferritin vasquez surement (mass/volume)on 08-07-2021 Ferritin [Mass/Vol] 301 ng/mL 26-388 [facility] Work Phone: Serum or plasma iron saturat ion measurement (mass fraction)on 08-07-2021 Iron saturation [Mass fraction] 10.5 % 15.0-55.0 [facility] Work Phone: Serum or plasma urea nitroge n measurement (mass/volume)on 08-07-2021 Urea nitrogen [Mass/Vol] 23 mg/dL 7-18 [facility] Work Phone: Thin prep Papanicolaou smear with manual screeningon 08-07-2021 Thin prep Papanicolaou smear with manual screening 7 5-15 [facility] Work Phone: Absolute lymphocyte counton 08-06-2021 Lymphocytes Auto (Unsp spec) [#/Vol] 2.34 10*3/uL 0.83-4.51 [facility] Work Phone: Basophil percentageon 2021 Basophil percentage >100 SEEN /hpf 0-[address] [facility] Work Phone: Basophils/100 WBC (Bld) 0.4 % 0-[address] [facility] Work Phone: Bilirubin [Mass/Vol] 0.50 mg/dL 0.20-1.00 [facility] Work Phone: [phone] Comment on above: For patients on eltr ombopag therapy, use of Dimension [place] TBIL is not recommended. Chloride [Moles/Vol] 109 mmol/L 98-107 [facility] Work Phone: Eosinophils/100 WBC (Bld) 4.9 % 0-5 [facility] Work Phone: Glucose [Mass/Vol] 104 mg/dL 74-106 [facility] Work Phone: Comment on above: Fasting Glucose resu lt from 100 to 125 mg/dL suggests IMPAIRED HOMEOSTASIS per A.D.A. criteria. Neutrophils (Bld) [#/Vol] 5.7 10*3/uL 2.0-7.7 [facility] Work Phone: Neutrophils/100 WBC (Bld) 60.6 % 47-70 [facility] Work Phone: Potassium [Moles/Vol] 3.6 mmol/L 3.5-5.1 [facility] Work Phone: Protein [Mass/Vol] 5.3 g/dL 6.4-8.2 [facility] Work Phone: Sodium [Moles/Vol] 141 mmol/L 136-145 [facility] Work Phone: WBC (Bld) [#/Vol] 9.4 10*3/uL 4.4-11.0 [facility] Work Phone: Bilirubin Test strip Ql (U)o n 08-06-2021 Bilirubin Ql (U) Negative Negative [facility] Work Phone: Blood erythrocytes count (nu mber/volume)on 08-06-2021 RBC (Bld) [#/Vol] 3.46 10*6/uL 4.6-6.2 [facility] Work Phone: Blood hemoglobin measurement (mass/volume)on 08-06-2021 Hemoglobin (Bld) [Mass/Vol] 9.4 g/dL 13.0-16.5 [facility] Work Phone: Blood lymphocytes/100 leukoc yteson 08-06-2021 Lymphocytes/100 WBC (Bld) 24.8 % 19-41 [facility] Work Phone: [phone] Blood monocytes/100 leukocyt eson 08-06-2021 Monocytes/100 WBC (Bld) 8.8 % 0-[address] [facility] Work Phone: Blood platelet mean volumeon 08-06-2021 Platelet mean volume (Bld) [Entitic vol] 10.4 fL 6.2-12.0 [facility] Work Phone: Determination of erythrocyte mean corpuscular volume (MCV)on 08-06-2021 MCV (RBC) [Entitic vol] 85.0 fL 80-[address] [facility] Work Phone: Direct bilirubinon 2 Bilirubin.direct [Mass/Vol] 0.22 mg/dL 0.00-0.30 [facility] Work Phone: Glucose Glucometer (BldC) [M ass/Vol]on 08-06-2021 Glucose [Mass/Vol] 109 mg/dL 74-106 [facility] Work Phone: Comment on above: MANAGEMENT OF PATIEN T CARE PER NURSING PROTOCOL Hematocrit Auto (Bld) [Volum e fraction]on 08-06-2021 Hematocrit (Bld) [Volume fraction] 29.4 % 40-54 [facility] Work Phone: Ketones Test strip Ql (U)on 08-06-2021 Ketones Ql (U) Negative Negative [facility] Work Phone: Laboratory - Chemistry and C hemistry - challengeon 08-06-2021 ALP [Catalytic activity/Vol] 96 U/L 45-117 [facility] Work Phone: ALT [Catalytic activity/Vol] 14 U/L 16-61 [facility] Work Phone: CO2 [Moles/Vol] 25.0 mmol/L 21.0-32.0 [facility] Work Phone: Globulin (S) [Mass/Vol] 3.1 g/dL 2.2-4.[address] [facility] Work Phone: Urea nitrogen/Creatinine [Mass ratio] 20.4 mg/mg 10-20 [facility] Work Phone: Laboratory - Hematology and Cell countson 08-06-2021 Erythrocyte distribution width (RBC) [Entitic vol] 48.0 fL 35.1-43.9 [facility] Work Phone: Erythrocyte distribution width (RBC) [Ratio] 15.5 % 11.6-14.6 [facility] Work Phone: Immature granulocytes/100 WBC (Bld) 0.500 % 0.0-0.9 [facility] Work Phone: Comment on above: IG% - Immature Granu locytes (promyelocytes, myelocytes and metamyelocytes) > 1% indicates that a LEFT SHIFT is Present. MCH (RBC) [Entitic mass] 27.2 pg 27.0-32.0 [facility] Work Phone: Nucleated RBC/100 WBC (Bld) [Ratio] 0 % 0-5 [facility] Work Phone: MCHC Auto (RBC) [Mass/Vol]on 08-06-2021 MCHC (RBC) [Mass/Vol] 32.0 g/dL 32-36 [facility] Work Phone: Mucus LM Ql (Urine sed)on Mucus Ql (Urine sed) 0 SEEN /hpf [facility] Work Phone: Nitrite Test strip Ql (U)on 08-06-2021 Nitrite Ql (U) Negative Negative [facility] Work Phone: No Panel Informationon 08-06 Streptococcus pneumoniae Antigen (M [facility] Work Phone: Respiratory Panel (PCR) Rhinovirus [facility] Work Phone: Ionized Calcium 3.5 mg/dL 4.5-5.6 [facility] Work Phone: Comment on above: Performed at: [place] [id number] Director: Elder Sweet PhD, Phone: [phone] Estimated Creatinine Clearance Calc 66.82 ml/min [facility] Work Phone: Estimated GFR (MDRD) Amer 87 mL/min >60 [facility] Work Phone: Comment on above: GFR Calc Estimated GFR (MDRD) Non-Af Amer 72 mL/min >60 [facility] Work Phone: Comment on above: Non- GFR Calc Platelets bldon 08-06-2021 Platelets (Bld) [#/Vol] 332 10*3/uL 150-450 [facility] Work Phone: Protein Test strip Ql (U)on 08-06-2021 Protein Ql (U) 15 mg/dl Negative [facility] Work Phone: Serum or plasma albumin yocasta urement (mass/volume)on 08-06-2021 Albumin [Mass/Vol] 2.2 g/dL 3.2-5.0 [facility] Work Phone: Serum or plasma calcium yocasta urement (mass/volume)on 08-06-2021 Calcium [Mass/Vol] 6.1 mg/dL 8.5-10.1 [facility] Work Phone: Comment on above: Critical Result(s) C alled at: 13:19:46 08/06/2021 by: Sharyn Woods to Jaspal. Results read back by same. Serum or plasma creatinine m easurement (mass/volume)on 08-06-2021 Creatinine [Mass/Vol] 1.08 mg/dL 0.70-1.30 [facility] Work Phone: Comment on above: The validity of the calculated GFR & GFRAA in patients over 70 years has not been determined. Clinical correlation is essential. Serum or plasma urea nitroge n measurement (mass/volume)on 08-06-2021 Urea nitrogen [Mass/Vol] 22 mg/dL 7-18 [facility] Work Phone: Squamous epithelial cells de tection in urine sediment by light microscopyon 08-06-2021 Epithelial cells.squamous LM Ql (Urine sed) 0-5 SEEN /hpf 0-5 [facility] Work Phone: Thin prep Papanicolaou smear with manual screeningon 08-06-2021 Thin prep Papanicolaou smear with manual screening 17 U/L 15-37 [facility] Work Phone: Thin prep Papanicolaou smear with manual screening 7 5-15 [facility] Work Phone: Urine blood detectionon 07-25 RBC Ql (U) 25 /ul Negative [facility] Work Phone: RBC Ql (U) 5-10 SEEN /hpf 0-5 [facility] Work Phone: Urine clarityon 08-06-2021 Clarity (U) Sl. Cloudy Clear [facility] Work Phone: Urine color determinationon 08-06-2021 Color (U) Yellow Yellow [facility] Work Phone: Urine glucose detectionon Glucose Ql (U) Normal mg/dl Normal [facility] Work Phone: Urine leukocyte esterase det ection by dipstickon 08-06-2021 Leukocyte esterase Test strip Ql (U) 500 /ul Negative [facility] Work Phone: Urine pHon 08-06-2021 pH (U) 6.0 [pH] 5.0 - 8.0 [facility] Work Phone: Urine sediment bacteria coun t by microscopy (number/high power field)on 08-06-2021 Bacteria LM.HPF (Urine sed) [#/Area] 1 /[HPF] None Seen [facility] Work Phone: Urine sediment yeast count b y microscopy (number/high powered field)on 08-06-2021 Yeast LM.HPF (Urine sed) [#/Area] 4 /[HPF] None Seen [facility] Work Phone: Urine specific gravity measu rementon 08-06-2021 Specific gravity (U) [Rel density] 1.015 1.002-1.030 [facility] Work Phone: Urobilinogen Auto test strip Ql (U)on 08-06-2021 Urobilinogen Ql (U) Normal mg/dl Normal [facility] Work Phone: Absolute lymphocyte counton 08-01-2021 Lymphocytes Auto (Unsp spec) [#/Vol] 0.92 10*3/uL 0.83-4.51 [facility] Work Phone: Basophil percentageon 2021 Basophils/100 WBC (Bld) 0.3 % 0-[address] [facility] Work Phone: Bilirubin [Mass/Vol] 0.60 mg/dL 0.20-1.00 [facility] Work Phone: Comment on above: For patients on eltr ombopag therapy, use of Dimension Harvel TBIL is not recommended. Chloride [Moles/Vol] 106 mmol/L 98-107 [facility] Work Phone: Eosinophils/100 WBC (Bld) 4.0 % 0-5 [facility] Work Phone: Glucose [Mass/Vol] 146 mg/dL 74-106 [facility] Work Phone: Comment on above: Fasting Glucose resu lt greater than or equal to 126 mg/dL suggests DIABETES MELLITUS per A.D.A. criteria. Neutrophils (Bld) [#/Vol] 8.0 10*3/uL 2.0-7.7 [facility] Work Phone: Neutrophils/100 WBC (Bld) 77.1 % 47-70 [facility] Work Phone: Potassium [Moles/Vol] 3.5 mmol/L 3.5-5.1 [facility] Work Phone: Protein [Mass/Vol] 5.4 g/dL 6.4-8.2 [facility] Work Phone: Sodium [Moles/Vol] 141 mmol/L 136-145 [facility] Work Phone: Comment on above: Critical Result(s) C alled at: 16:03:59 08/01/2021 by: Michael Aldana. Results read back by same. WBC (Bld) [#/Vol] 10.4 10*3/uL 4.4-11.0 [facility] Work Phone: Blood erythrocytes count (nu mber/volume)on 08-01-2021 RBC (Bld) [#/Vol] 3.62 10*6/uL 4.6-6.2 [facility] Work Phone: [phone] Blood hemoglobin measurement (mass/volume)on 08-01-2021 Hemoglobin (Bld) [Mass/Vol] 9.8 g/dL 13.0-16.5 [facility] Work Phone: Blood lymphocytes/100 leukoc yteson 08-01-2021 Lymphocytes/100 WBC (Bld) 8.9 % 19-41 [facility] Work Phone: Blood monocytes/100 leukocyt eson 08-01-2021 Monocytes/100 WBC (Bld) 7.5 % 0-[address] [facility] Work Phone: Blood platelet mean volumeon 08-01-2021 Platelet mean volume (Bld) [Entitic vol] 10.9 fL 6.2-12.0 [facility] Work Phone: Determination of erythrocyte mean corpuscular volume (MCV)on 08-01-2021 MCV (RBC) [Entitic vol] 85.4 fL 80-[address] [facility] Work Phone: Hematocrit Auto (Bld) [Volum e fraction]on 08-01-2021 Hematocrit (Bld) [Volume fraction] 30.9 % 40-54 [facility] Work Phone: Laboratory - Chemistry and C hemistry - challengeon 08-01-2021 ALP [Catalytic activity/Vol] 92 U/L 45-117 [facility] Work Phone: ALT [Catalytic activity/Vol] 19 U/L 16-61 [facility] Work Phone: CO2 [Moles/Vol] 22.0 mmol/L 21.0-32.0 [facility] Work Phone: Globulin (S) [Mass/Vol] 2.9 g/dL 2.2-4.[address] [facility] Work Phone: Urea nitrogen/Creatinine [Mass ratio] 20.6 mg/mg 10-20 [facility] Work Phone: Laboratory - Hematology and Cell countson 08-01-2021 Erythrocyte distribution width (RBC) [Entitic vol] 49.0 fL 35.1-43.9 [facility] Work Phone: Erythrocyte distribution width (RBC) [Ratio] 15.6 % 11.6-14.6 [facility] Work Phone: Immature granulocytes/100 WBC (Bld) 2.200 % 0.0-0.9 [facility] Work Phone: Comment on above: IG% - Immature Granu locytes (promyelocytes, myelocytes and metamyelocytes) > 1% indicates that a LEFT SHIFT is Present. MCH (RBC) [Entitic mass] 27.1 pg 27.0-32.0 [facility] Work Phone: Nucleated RBC/100 WBC (Bld) [Ratio] 0 % 0-5 [facility] Work Phone: MCHC Auto (RBC) [Mass/Vol]on 08-01-2021 MCHC (RBC) [Mass/Vol] 31.7 g/dL 32-36 [facility] Work Phone: No Panel Informationon 08-01 Estimated GFR (MDRD) Amer 87 mL/min >60 [facility] Work Phone: Comment on above: GFR Calc Estimated GFR (MDRD) Non-Af Amer 72 mL/min >60 [facility] Work Phone: Comment on above: Non- GFR Calc Platelets bldon 08-01-2021 Platelets (Bld) [#/Vol] 314 10*3/uL 150-450 [facility] Work Phone: Serum or plasma albumin yocasta urement (mass/volume)on 08-01-2021 Albumin [Mass/Vol] 2.5 g/dL 3.2-5.0 [facility] Work Phone: Serum or plasma albumin/glob ulin mass ratioon 08-01-2021 Albumin/Globulin [Mass ratio] 0.9 {ratio} 0.9-2.4 [facility] Work Phone: Serum or plasma calcium yocasta urement (mass/volume)on 08-01-2021 Calcium [Mass/Vol] 6.2 mg/dL 8.5-10.1 [facility] Work Phone: Serum or plasma creatinine m easurement (mass/volume)on 08-01-2021 Creatinine [Mass/Vol] 1.07 mg/dL 0.70-1.30 [facility] Work Phone: Comment on above: The validity of the calculated GFR & GFRAA in patients over 70 years has not been determined. Clinical correlation is essential. Serum or plasma urea nitroge n measurement (mass/volume)on 08-01-2021 Urea nitrogen [Mass/Vol] 22 mg/dL 7-18 [facility] Work Phone: Thin prep Papanicolaou smear with manual screeningon 08-01-2021 Thin prep Papanicolaou smear with manual screening 20 U/L 15-37 [facility] Work Phone: Thin prep Papanicolaou smear with manual screening 13 5-15 [facility] Work Phone: Basophil percentageon 2021 Basophil percentage 104 mg/dL 74-106 [facility] Work Phone: Basophil percentage 141 mmol/L 136-145 [facility] Work Phone: Basophil percentage 4.3 mmol/L 3.5-5.1 [facility] Work Phone: Basophil percentage 110 mmol/L 98-107 [facility] Work Phone: Basophils (Bld) [#/Vol] 6.6 10*3/uL 4.4-11.0 [facility] Work Phone: Chloride [Moles/Vol] 110 mmol/L 98-107 [facility] Work Phone: Glucose [Mass/Vol] 104 mg/dL 74-106 [facility] Work Phone: Comment on above: Fasting Glucose resu lt from 100 to 125 mg/dL suggests IMPAIRED HOMEOSTASIS per A.D.A. criteria. Potassium [Moles/Vol] 4.3 mmol/L 3.5-5.1 [facility] Work Phone: Sodium [Moles/Vol] 141 mmol/L 136-145 [facility] Work Phone: WBC (Bld) [#/Vol] 6.6 10*3/uL 4.4-11.0 [facility] Work Phone: Blood erythrocytes count (nu mber/volume)on 06-15-2021 RBC (Bld) [#/Vol] 3.14 10*6/uL 4.6-6.2 [facility]: Blood hemoglobin measurement (mass/volume)on 06-15-2021 Hemoglobin (Bld) [Mass/Vol] 8.5 g/dL 13.0-16.5 [facility] Work Phone: Blood platelet mean volumeon 06-15-2021 Platelet mean volume (Bld) [Entitic vol] 10.0 fL 6.2-12.0 [facility] Work Phone: Determination of erythrocyte mean corpuscular volume (MCV)on 06-15-2021 MCV (RBC) [Entitic vol] 86.0 fL 80-[address] [facility] Work Phone: Hematocrit Auto (Bld) [Volum e fraction]on 06-15-2021 Hematocrit (Bld) [Volume fraction] 27.0 % 40-54 [facility] Work Phone: Laboratory - Chemistry and C hemistry - challengeon 06-15-2021 CO2 [Moles/Vol] 25.0 mmol/L 21.0-32.0 [facility] Work Phone: Urea nitrogen/Creatinine [Mass ratio] 20.2 mg/mg 10-20 [facility] Work Phone: Laboratory - Hematology and Cell countson 06-15-2021 Erythrocyte distribution width (RBC) [Entitic vol] 62.9 fL 35.1-43.9 [facility] Work Phone: Erythrocyte distribution width (RBC) [Ratio] 20.0 % 11.6-14.6 [facility] Work Phone: MCH (RBC) [Entitic mass] 27.1 pg 27.0-32.0 [facility] Work Phone: MCHC Auto (RBC) [Mass/Vol]on 06-15-2021 MCHC (RBC) [Mass/Vol] 31.5 g/dL 32-36 [facility] Work Phone: No Panel Informationon 06-15 Estimated GFR (MDRD) Amer 90 mL/min >60 [facility] Work Phone: Comment on above: GFR Calc Estimated GFR (MDRD) Non-Af Amer 75 mL/min >60 [facility] Work Phone: Comment on above: Non- GFR Calc 27.1 pg 27.0-32.0 [facility] Work Phone: 20.0 % 11.6-14.6 [facility] Work Phone: 62.9 fl 35.1-43.9 [facility] Work Phone: 75 mL/min >60 [facility] Work Phone: 90 mL/min >60 [facility] Work Phone: 20.2 RATIO 10-20 [facility] Work Phone: 25.0 mmol/L 21.0-32.0 [facility] Work Phone: Platelets bldon 06-15-2021 Platelets (Bld) [#/Vol] 357 10*3/uL 150-450 [facility] Work Phone: Serum or plasma calcium yocasta urement (mass/volume)on 06-15-2021 Calcium [Mass/Vol] 7.6 mg/dL 8.5-10.1 [facility] Work Phone: Serum or plasma creatinine m easurement (mass/volume)on 06-15-2021 Creatinine [Mass/Vol] 1.04 mg/dL 0.70-1.30 [facility] Work Phone: Comment on above: The validity of the calculated GFR & GFRAA in patients over 70 years has not been determined. Clinical correlation is essential. Serum or plasma urea nitroge n measurement (mass/volume)on 06-15-2021 Urea nitrogen [Mass/Vol] 21 mg/dL 7-18 [facility] Work Phone: Thin prep Papanicolaou smear with manual screeningon 06-15-2021 Thin prep Papanicolaou smear with manual screening 6 5-15 [facility] Work Phone: Glucose Glucometer (BldC) [M ass/Vol]on 05-18-2021 Glucose [Mass/Vol] 103 mg/dL 74-106 [facility] Work Phone: Comment on above: MANAGEMENT OF PATIEN T CARE PER NURSING PROTOCOL Absolute lymphocyte counton 05-12-2021 Lymphocytes Auto (Unsp spec) [#/Vol] 1.07 10*3/uL 0.83-4.51 [facility] Work Phone: Basophil percentageon 2021 Basophil percentage Not Reportable [facility] Work Phone: Basophil percentage 112 mg/dL 74-106 [facility] Work Phone: Basophil percentage 142 mmol/L 136-145 [facility] Work Phone: Basophil percentage 3.8 mmol/L 3.5-5.1 [facility] Work Phone: [phone] Basophil percentage 112 mmol/L 98-107 [facility] Work Phone: Basophils (Bld) [#/Vol] 6.7 10*3/uL 4.4-11.0 [facility] Work Phone: [phone] Basophils (Bld) [#/Vol] 4.2 10*3/uL 2.0-7.7 [facility] Work Phone: Chloride [Moles/Vol] 112 mmol/L 98-107 [facility] Work Phone: Glucose [Mass/Vol] 112 mg/dL 74-106 [facility] Work Phone: Comment on above: Fasting Glucose resu lt from 100 to 125 mg/dL suggests IMPAIRED HOMEOSTASIS per A.D.A. criteria. Neutrophils (Bld) [#/Vol] 4.2 10*3/uL 2.0-7.7 [facility] Work Phone: Potassium [Moles/Vol] 3.8 mmol/L 3.5-5.1 [facility] Work Phone: Sodium [Moles/Vol] 142 mmol/L 136-145 [facility] Work Phone: WBC (Bld) [#/Vol] 6.7 10*3/uL 4.4-11.0 [facility] Work Phone: Blood band neutrophil count as percentage of total leukocyteson 05-12-2021 Band form neutrophils/100 WBC (Bld) 2 % 0-5 [facility] Work Phone: Blood eosinophils/100 leukoc yteson 05-12-2021 Eosinophils/100 WBC (Bld) 3 % 0-5 [facility] Work Phone: Blood erythrocytes count (nu mber/volume)on 05-12-2021 RBC (Bld) [#/Vol] 3.52 10*6/uL 4.6-6.2 [facility] Work Phone: Blood hemoglobin measurement (mass/volume)on 05-12-2021 Hemoglobin (Bld) [Mass/Vol] 9.5 g/dL 13.0-16.5 [facility] Work Phone: Blood lymphocytes/100 leukoc yteson 05-12-2021 Lymphocytes/100 WBC (Bld) 16 % 19-41 [facility] Work Phone: Blood metamyelocytes/100 dangelo kocyteson 05-12-2021 Metamyelocytes/100 WBC (Bld) 4 % 0-1 [facility] Work Phone: Blood monocytes/100 leukocyt eson 05-12-2021 Monocytes/100 WBC (Bld) 10 % 0-[address] [facility] Work Phone: Blood platelet adequacy dete ction by light microscopyon 05-12-2021 Platelets LM Ql (Bld) ADEQUATE ADEQ [facility] Work Phone: Blood platelet mean volumeon 05-12-2021 Platelet mean volume (Bld) [Entitic vol] 10.2 fL 6.2-12.0 [facility] Work Phone: Blood segmented neutrophils/ 100 leukocyteson 05-12-2021 Segmented neutrophils/100 WBC (Bld) 61 % 47-70 [facility] Work Phone: Determination of erythrocyte mean corpuscular volume (MCV)on 05-12-2021 MCV (RBC) [Entitic vol] 83.0 fL 80-[address] [facility] Work Phone: Hematocrit Auto (Bld) [Volum e fraction]on 05-12-2021 Hematocrit (Bld) [Volume fraction] 29.2 % 40-54 [facility] Work Phone: Laboratory - Chemistry and C hemistry - challengeon 05-12-2021 CO2 [Moles/Vol] 26.0 mmol/L 21.0-32.0 [facility] Work Phone: Urea nitrogen/Creatinine [Mass ratio] 13.8 mg/mg 10-20 [facility] Work Phone: Laboratory - Hematology and Cell countson 05-12-2021 Anisocytosis Ql (Bld) 1+ [facility] Work Phone: Erythrocyte distribution width (RBC) [Entitic vol] 52.5 fL 35.1-43.9 [facility] Work Phone: Erythrocyte distribution width (RBC) [Ratio] 17.8 % 11.6-14.6 [facility] Work Phone: MCH (RBC) [Entitic mass] 27.0 pg 27.0-32.0 [facility] Work Phone: Myelocytes/100 WBC (Bld) 4 % 0-0 [facility] Work Phone: MCHC Auto (RBC) [Mass/Vol]on 05-12-2021 MCHC (RBC) [Mass/Vol] 32.5 g/dL 32-36 [facility] Work Phone: No Panel Informationon 05-12 Estimated Creatinine Clearance Calc 67.91 ml/min [facility] Work Phone: Estimated GFR (MDRD) Amer 80 mL/min >60 [facility] Work Phone: Comment on above: GFR Calc Estimated GFR (MDRD) Non-Af Amer 66 mL/min >60 [facility] Work Phone: Comment on above: Non- GFR Calc 27.0 pg 27.0-32.0 [facility] Work Phone: 17.8 % 11.6-14.6 [facility] Work Phone: 52.5 fl 35.1-43.9 [facility] Work Phone: 4 % 0-0 [facility] Work Phone: 1+ [facility] Work Phone: [phone] 66 mL/min >60 [facility] Work Phone: 80 mL/min >60 [facility] Work Phone: 67.91 ml/min [facility] Work Phone: 13.8 RATIO 10-20 [facility] Work Phone: 26.0 mmol/L 21.0-32.0 [facility] Work Phone: [phone] Platelets bldon 05-12-2021 Platelets (Bld) [#/Vol] 443 10*3/uL 150-450 [facility] Work Phone: Review by pathologiston 04-24 Pathologist review Sohan (Unsp spec) [Interp] Reviewed [facility] Work Phone: Comment on above: Previous reported re sult: Josephine hair Edited by: ROSETTA on 05/14/21:1437Normocytic anemia.Neutrophilic left shift.Clinical correlation necessary.Mc Urias M.D. 05/14/21 AMENDED REPORT 05/14/21 [id number] PATH REV previously reported as: June Serum or plasma calcium yocasta urement (mass/volume)on 05-12-2021 Calcium [Mass/Vol] 8.2 mg/dL 8.5-10.[address] [facility] Work Phone: Serum or plasma creatinine m easurement (mass/volume)on 05-12-2021 Creatinine [Mass/Vol] 1.16 mg/dL 0.70-1.30 [facility] Work Phone: Comment on above: The validity of the calculated GFR & GFRAA in patients over 70 years has not been determined. Clinical correlation is essential. Serum or plasma urea nitroge n measurement (mass/volume)on 05-12-2021 Urea nitrogen [Mass/Vol] 16 mg/dL 7-18 [facility] Work Phone: Thin prep Papanicolaou smear with manual screeningon 05-12-2021 Thin prep Papanicolaou smear with manual screening 1+ [facility] Work Phone: Thin prep Papanicolaou smear with manual screening 4 5-15 [facility] Work Phone: Total cell counton 2 Cells counted Molgen (Bld/Tiss) [#] 100 MANUAL DIFF [facility] Work Phone: Basophil percentageon 2021 Basophils/100 WBC (Bld) 3.0 % 0-[address] [facility] Work Phone: Basophils/100 WBC (Bld) 0.4 % 0-[address] [facility] Work Phone: Eosinophils/100 WBC (Bld) 3.0 % 0-5 [facility] Work Phone: Blood lymphocytes/100 leukoc yteson 05-05-2021 Lymphocytes/100 WBC (Bld) 14.8 % 19-41 [facility] Work Phone: Blood monocytes/100 leukocyt eson 05-05-2021 Monocytes/100 WBC (Bld) 10.8 % 0-[address] [facility] Work Phone: Laboratory - Hematology and Cell countson 05-05-2021 Immature granulocytes/100 WBC (Bld) 2.800 % 0.0-0.9 [facility] Work Phone: Comment on above: IG% - Immature Granu locytes (promyelocytes, myelocytes and metamyelocytes) > 1% indicates that a LEFT SHIFT is Present. Nucleated RBC/100 WBC (Bld) [Ratio] 0 % 0-5 [facility] Work [phone] No Panel Informationon 05-05 2.800 % 0.0-0.9 [facility] Work Phone: 0 % 0-5 [facility] Work Phone: Absolute lymphocyte counton 05-04-2021 Lymphocytes Auto (Unsp spec) [#/Vol] 0.59 10*3/uL 0.83-4.51 [facility] Work Phone: Basophil percentageon 2021 Basophils (Bld) [#/Vol] 4.9 10*3/uL 4.4-11.0 [facility] Work Phone: Basophils (Bld) [#/Vol] 3.6 10*3/uL 2.0-7.7 [facility] Work Phone: Basophils/100 WBC (Bld) 72.2 % 47-[address] [facility] Work Phone: Basophils/100 WBC (Bld) 3.6 % 0-[address] [facility] Work Phone: Basophils/100 WBC (Bld) 0.4 % 0-[address] [facility] Work Phone: Eosinophils/100 WBC (Bld) 3.6 % 0-5 [facility] Work Phone: Neutrophils (Bld) [#/Vol] 3.6 10*3/uL 2.0-7.7 [facility] Work Phone: Neutrophils/100 WBC (Bld) 72.2 % 47-70 [facility] Work Phone: WBC (Bld) [#/Vol] 4.9 10*3/uL 4.4-11.0 [facility] Work Phone: Blood erythrocytes count (nu mber/volume)on 05-04-2021 RBC (Bld) [#/Vol] 3.13 10*6/uL 4.6-6.2 [facility] Work Phone: Blood hemoglobin measurement (mass/volume)on 05-04-2021 Hemoglobin (Bld) [Mass/Vol] 8.3 g/dL 13.0-16.5 [facility] Work Phone: Blood lymphocytes/100 leukoc yteson 05-04-2021 Lymphocytes/100 WBC (Bld) 11.9 % 19-41 [facility] Work Phone: Blood manual differential co mment interpretation (narrative result)on 05-04-2021 Manual differential comment Sohan (Bld) [Interp] SCANNED [facility] Work Phone: Blood monocytes/100 leukocyt eson 05-04-2021 Monocytes/100 WBC (Bld) 9.9 % 0-[address] [facility] Work Phone: Blood platelet mean volumeon 05-04-2021 Platelet mean volume (Bld) [Entitic vol] 10.0 fL 6.2-12.0 [facility] Work Phone: Determination of erythrocyte mean corpuscular volume (MCV)on 05-04-2021 MCV (RBC) [Entitic vol] 83.4 fL 80-[address] [facility] Work Phone: Glucose Glucometer (BldC) [M ass/Vol]on 05-04-2021 Glucose [Mass/Vol] 126 mg/dL 74-106 [facility] Work Phone: Comment on above: MANAGEMENT OF PATIEN T CARE PER NURSING PROTOCOL Gram stain for investigation of transfusion reactionon 05-04-2021 Microscopic observation Gram stain Nom (Unsp spec) [facility] Work Phone: Hematocrit Auto (Bld) [Volum e fraction]on 05-04-2021 Hematocrit (Bld) [Volume fraction] 26.1 % 40-54 [facility] Work Phone: Laboratory - Hematology and Cell countson 05-04-2021 Erythrocyte distribution width (RBC) [Entitic vol] 53.6 fL 35.1-43.9 [facility] Work Phone: Erythrocyte distribution width (RBC) [Ratio] 17.7 % 11.6-14.6 [facility] Work Phone: Immature granulocytes/100 WBC (Bld) 2.000 % 0.0-0.9 [facility] Work Phone: Comment on above: IG% - Immature Granu locytes (promyelocytes, myelocytes and metamyelocytes) > 1% indicates that a LEFT SHIFT is Present. MCH (RBC) [Entitic mass] 26.5 pg 27.0-32.0 [facility] Work Phone: Nucleated RBC/100 WBC (Bld) [Ratio] 0 % 0-5 [facility] Work Phone: MCHC Auto (RBC) [Mass/Vol]on 05-04-2021 MCHC (RBC) [Mass/Vol] 31.8 g/dL 32-36 [facility] Work Phone: No Panel Informationon 05-04 26.5 pg 27.0-32.0 [facility] Work Phone: 17.7 % 11.6-14.6 [facility] Work Phone: 53.6 fl 35.1-43.9 [facility] Work Phone: 2.000 % 0.0-0.9 [facility] Work Phone: 0 % 0-5 [facility] Work Phone: Platelets bldon 05-04-2021 Platelets (Bld) [#/Vol] 389 10*3/uL 150-450 [facility] Work Phone: Basophil percentageon 2021 Basophil percentage 45 mg/dL 74-106 [facility] Work Phone: Basophil percentage 4.6 g/dL 6.4-8.2 [facility] Work Phone: Basophil percentage 0.30 mg/dL 0.20-1.00 [facility] Work Phone: Basophil percentage 147 mmol/L 136-145 [facility] Work Phone: Basophil percentage 3.2 mmol/L 3.5-5.1 [facility] Work Phone: Basophil percentage 118 mmol/L 98-107 [facility] Work Phone: Bilirubin [Mass/Vol] 0.30 mg/dL 0.20-1.00 [facility] Work Phone: Comment on above: For patients on eltr ombopag therapy, use of Dimension Harvel TBIL is not recommended. Chloride [Moles/Vol] 118 mmol/L 98-107 [facility] Work Phone: Glucose [Mass/Vol] 45 mg/dL 74-106 [facility] Work Phone: Comment on above: Glucose result less than 50 mg/dL suggests HYPOGLYCEMIA. Potassium [Moles/Vol] 3.2 mmol/L 3.5-5.1 [facility] Work Phone: Protein [Mass/Vol] 4.6 g/dL 6.4-8.2 [facility] Work Phone: Sodium [Moles/Vol] 147 mmol/L 136-145 [facility] Work Phone: Laboratory - Chemistry and C hemistry - challengeon 05-03-2021 ALP [Catalytic activity/Vol] 55 U/L 45-117 [facility] Work Phone: ALT [Catalytic activity/Vol] 23 U/L 16-61 [facility] Work Phone: CO2 [Moles/Vol] 23.0 mmol/L 21.0-32.0 [facility] Work Phone: Globulin (S) [Mass/Vol] 3.3 g/dL 2.2-4.[address] [facility] Work Phone: Urea nitrogen/Creatinine [Mass ratio] 12.6 mg/mg 10-20 [facility] Work Phone: No Panel Informationon 05-03 Estimated Creatinine Clearance Calc 51.82 ml/min [facility] Work Phone: Estimated GFR (MDRD) Amer 67 mL/min >60 [facility] Work Phone: Comment on above: GFR Calc Estimated GFR (MDRD) Non-Af Amer 55 mL/min >60 [facility] Work Phone: Comment on above: Non- GFR Calc 55 mL/min >60 [facility] Work Phone: 67 mL/min >60 [facility] Work Phone: 51.82 ml/min [facility] Work Phone: 12.6 RATIO 10-20 [facility] Work Phone: 3.3 g/dL 2.2-4.2 [facility] Work Phone: 55 U/L 45-117 [facility] Work Phone: 23 U/L 16-61 [facility] Work Phone: 23.0 mmol/L 21.0-32.0 [facility] Work Phone: Serum or plasma albumin yocasta urement (mass/volume)on 05-03-2021 Albumin [Mass/Vol] 1.3 g/dL 3.2-5.0 [facility] Work Phone: Serum or plasma albumin/glob ulin mass ratioon 05-03-2021 Albumin/Globulin [Mass ratio] 0.4 {ratio} 0.9-2.4 [facility] Work Phone: Serum or plasma calcium yocasta urement (mass/volume)on 05-03-2021 Calcium [Mass/Vol] 7.1 mg/dL 8.5-10.[address] [facility] Work Phone: Serum or plasma creatinine m easurement (mass/volume)on 05-03-2021 Creatinine [Mass/Vol] 1.35 mg/dL 0.70-1.30 [facility] Work Phone: Comment on above: The validity of the calculated GFR & GFRAA in patients over 70 years has not been determined. Clinical correlation is essential. Serum or plasma urea nitroge n measurement (mass/volume)on 05-03-2021 Urea nitrogen [Mass/Vol] 17 mg/dL 7-18 [facility] Work Phone: Thin prep Papanicolaou smear with manual screeningon 05-03-2021 Thin prep Papanicolaou smear with manual screening 32 U/L 15-37 [facility] Work Phone: Thin prep Papanicolaou smear with manual screening 6 5-15 [facility] Work Phone: Basophil percentageon 2021 Basophil percentage 1.1 mmol/L 0.4-2.0 [facility] Work Phone: Lactate [Moles/Vol] 1.1 mmol/L 0.4-2.0 [facility] Work Phone: Blood santi cells detection b y light microscopyon 05-01-2021 Santi cells LM Ql (Bld) RARE Wo elida [facility] Work Phone: Hemoglobin in reticulocytes (mass per reticulocyte)on 05-01-2021 Hemoglobin (Reticulocytes) [Entitic mass] 25.1 pg 30-35 [facility] Work Phone: Iron measurement (mass/mass) on 05-01-2021 Iron (Unsp spec) [Mass/Mass] 15 ug/dL 65-175 [facility] Work Phone: Laboratory - Chemistry and C hemistry - challengeon 05-01-2021 Cobalamin (Vitamin B12) [Mass/Vol] 1806 pg/mL 211-911 [facility] Work Phone: Laboratory - Coagulationon 0 05-01-2021 aPTT Coag (Bld) [Time] 72.5 s [facility] Work Phone: Laboratory - Hematology and Cell countson 05-01-2021 Anisocytosis Ql (Bld) 1+ [facility] Work Phone: Laboratory - Microbiology an d Antimicrobial susceptibilityon 05-01-2021 Bacteria identified Cx Nom (Bld) No growth in 5 days. [facility] Work Phone: Lower GI hemoglobin IA Ql (S tl)on 05-01-2021 Stool Occult Blood (FOREST) Positive [facility] Work Phone: Stool gastrointestinal hemoglobin detection by immunologic method Positive [facility] Work Phone: No Panel Informationon 05-01 72.5 Seconds 24.1-36.2 [facility] Work Phone: No growth in 5 days. [facility] Work Phone: 1806 pg/mL [facility] Work Phone: Streptococcus pneumoniae Antigen (M [facility] Work Phone: Immature Reticulocyte Fraction 33.10 % 3.00-15.90 [facility] Work Phone: [phone] Reticulocyte Count 1.72 % 0.5-1.5 [facility] Work Phone: [phone] Total Iron Binding Capacity 152 ug/dL 250-450 [facility] Work Phone: 1+ [facility] Work Phone: [phone] 1.72 % 0.5-1.5 [facility] Work Phone: 33.10 % 3.00-15.90 [facility] Work Phone: 152 ug/dL 250-450 [facility] Work Phone: Serum or plasma ferritin vasquez surement (mass/volume)on 05-01-2021 Ferritin [Mass/Vol] 544 ng/mL 26-388 [facility] Work Phone: Serum or plasma iron saturat ion measurement (mass fraction)on 05-01-2021 Iron saturation [Mass fraction] 9.9 % 15.0-55.0 [facility] Work Phone: INR in Blood by Coagulation assayon 04-30-2021 INR Coag (Bld) [Relative time] 2.7 {INR} [facility] Work Phone: Laboratory - Coagulationon 0 04-30-2021 PT Coag (PPP) [Time] 27.9 s 11.7-14.9 [facility] Work Phone: No Panel Informationon 04-30 Methicillin-Resist S.aureus DNA PCR Negative Negative [facility] Work Phone: Negative Negative [facility] Work Phone: 27.9 SECONDS 11.7-14.9 [facility] Work Phone: Vancomycin troughon 05-01-19 22 Vancomycin trough [Mass/Vol] 10.5 ug/mL 5.0-15.0 [facility] Work Phone: Comment on above: VANCOMYCIN STANDARED DRUG THERAPY TROUGH LEVEL: 5.0 - 15.0 mg/L VANCOMYCIN HIGH INTENSITY THERAPY TROUGH LEVEL: 15.0 - 20.0 mg/L High Intensity therapy recommended for serious lifethreatening infections include:- Pgpafaavbv-Oxdmstpuscau-Xphuhfulr (Ventilator/Healtcare Associated)-Sepsis PLEASE CONTACT PHARMACY SERVICES (#[id number]) FOR INTERPRETATIONOF RESULTS. Glucose Glucometer (BldC) [M ass/Vol]on 04-29-2021 Glucose [Mass/Vol] 103 mg/dL 74-106 [facility] Work Phone: Comment on above: MANAGEMENT OF PATIEN T CARE PER NURSING PROTOCOL Laboratory - Chemistry and C hemistry - challengeon 04-29-2021 Natriuretic peptide B (Bld) [Mass/Vol] 65.0 pg/mL 0-100 [facility] Work Phone: No Panel Informationon 04-29 Troponin I High Sensitivity 24 pg/mL 3.0-78.0 [facility] Work Phone: Comment on above: Please Note: New Jennifer t Units and Gender Specific Reference Ranges. For more information see Policy Stat Procedure Harvel High Sensitivity Troponin (TNIH) and attachments. 24 pg/mL 3.0-78.0 [facility] Work Phone: 65.0 pg/mL 0-100 [facility] Work Phone: Absolute lymphocyte counton 04-28-2021 Lymphocytes Auto (Unsp spec) [#/Vol] 0.59 10*3/uL 0.83-4.51 [facility] Work Phone: Basophil percentageon 2021 Basophil percentage 86 mg/dL 74-106 [facility] Work Phone: [phone] Basophil percentage 141 mmol/L 136-145 [facility] Work Phone: [phone] Basophil percentage 3.6 mmol/L 3.5-5.1 [facility] Work Phone: Basophil percentage 110 mmol/L 98-107 [facility] Work Phone: [phone] Basophils (Bld) [#/Vol] 4.6 10*3/uL 4.4-11.0 [facility] Work Phone: Basophils (Bld) [#/Vol] 3.6 10*3/uL 2.0-7.7 [facility] Work Phone: [phone] Basophils/100 WBC (Bld) 77.1 % 47-[address] [facility] Work Phone: Basophils/100 WBC (Bld) 1.7 % 0-[address] [facility] Work Phone: [phone] Basophils/100 WBC (Bld) 0.2 % 0-[address] [facility] Work Phone: Chloride [Moles/Vol] 110 mmol/L 98-[address] [facility] Work Phone: Eosinophils/100 WBC (Bld) 1.7 % 0-5 [facility] Work Phone: Glucose [Mass/Vol] 86 mg/dL 74-106 [facility] Work Phone: Neutrophils (Bld) [#/Vol] 3.6 10*3/uL 2.0-7.7 [facility] Work Phone: Neutrophils/100 WBC (Bld) 77.1 % 47-70 [facility] Work Phone: Potassium [Moles/Vol] 3.6 mmol/L 3.5-5.1 [facility] Work Phone: Sodium [Moles/Vol] 141 mmol/L 136-145 [facility] Work [facility]: WBC (Bld) [#/Vol] 4.6 10*3/uL 4.4-11.0 [facility] Work Phone: Blood erythrocytes count (nu mber/volume)on 04-28-2021 RBC (Bld) [#/Vol] 3.73 10*6/uL 4.6-6.2 [facility]: Blood hemoglobin measurement (mass/volume)on 04-28-2021 Hemoglobin (Bld) [Mass/Vol] 9.7 g/dL 13.0-16.5 [facility] Work Phone: Blood lymphocytes/100 leukoc yteson 04-28-2021 Lymphocytes/100 WBC (Bld) 12.8 % 19-41 [facility] Work Phone: Blood monocytes/100 leukocyt eson 04-28-2021 Monocytes/100 WBC (Bld) 7.6 % 0-[address] [facility] Work Phone: Blood platelet mean volumeon 04-28-2021 Platelet mean volume (Bld) [Entitic vol] 10.5 fL 6.2-12.0 [facility] Work Phone: Determination of erythrocyte mean corpuscular volume (MCV)on 04-28-2021 MCV (RBC) [Entitic vol] 82.6 fL 80-[address] [facility] Work Phone: Hematocrit Auto (Bld) [Volum e fraction]on 04-28-2021 Hematocrit (Bld) [Volume fraction] 30.8 % 40-54 [facility] Work Phone: Laboratory - Chemistry and C hemistry - challengeon 04-28-2021 CO2 [Moles/Vol] 24.0 mmol/L 21.0-32.0 [facility] Work Phone: Urea nitrogen/Creatinine [Mass ratio] 18.7 mg/mg 10-20 [facility] Work Phone: Laboratory - Hematology and Cell countson 04-28-2021 Anisocytosis Ql (Bld) 1+ [facility] Work Phone: Erythrocyte distribution width (RBC) [Entitic vol] 50.5 fL 35.1-43.9 [facility] Work Phone: Erythrocyte distribution width (RBC) [Ratio] 17.1 % 11.6-14.6 [facility] Work Phone: Immature granulocytes/100 WBC (Bld) 0.600 % 0.0-0.9 [facility] Work Phone: Comment on above: IG% - Immature Granu locytes (promyelocytes, myelocytes and metamyelocytes) > 1% indicates that a LEFT SHIFT is Present. MCH (RBC) [Entitic mass] 26.0 pg 27.0-32.0 [facility] Work Phone: Nucleated RBC/100 WBC (Bld) [Ratio] 0 % 0-5 [facility] Work Phone: Laboratory - Microbiology an d Antimicrobial susceptibilityon 04-28-2021 Bacteria identified Cx Nom (Bld) No growth in 5 days. [facility] Work Phone: MCHC Auto (RBC) [Mass/Vol]on 04-28-2021 MCHC (RBC) [Mass/Vol] 31.5 g/dL 32-36 [facility] Work Phone: No Panel Informationon 04-28 Acanthocytes RARE [facility] Work Phone: Estimated Creatinine Clearance Calc 45.13 ml/min [facility] Work Phone: Estimated GFR (MDRD) Amer 57 mL/min >60 [facility] Work Phone: Comment on above: GFR Calc Estimated GFR (MDRD) Non-Af Amer 47 mL/min >60 [facility] Work Phone: Comment on above: Non- GFR Calc 26.0 pg 27.0-32.0 [facility] Work Phone: 17.1 % 11.6-14.6 [facility] Work Phone: 50.5 fl 35.1-43.9 [facility] Work Phone: [phone] 0.600 % 0.0-0.9 [facility] Work Phone: [phone] 0 % 0-5 [facility] Work Phone: 1+ [facility] Work Phone: [phone] RARE [facility] Work Phone: 47 mL/min >60 [facility] Work Phone: 57 mL/min >60 [facility] Work Phone: [phone] 45.13 ml/min [facility] Work Phone: 18.7 RATIO 10-20 [facility] Work Phone: 24.0 mmol/L 21.0-32.0 [facility] Work Phone: No growth in 5 days. [facility] Work Phone: [phone] Ovalocyte detectionon 2021 Ovalocytes LM Ql (Bld) RARE [facility] Work Phone: Platelets bldon 04-28-2021 Platelets (Bld) [#/Vol] 247 10*3/uL 150-450 [facility] Work Phone: Serum or plasma calcium yocasta urement (mass/volume)on 04-28-2021 Calcium [Mass/Vol] 8.9 mg/dL 8.5-10.1 [facility] Work Phone: Serum or plasma creatinine m easurement (mass/volume)on 04-28-2021 Creatinine [Mass/Vol] 1.55 mg/dL 0.70-1.30 [facility] Work Phone: Comment on above: The validity of the calculated GFR & GFRAA in patients over 70 years has not been determined. Clinical correlation is essential. Serum or plasma urea nitroge n measurement (mass/volume)on 04-28-2021 Urea nitrogen [Mass/Vol] 29 mg/dL 7-18 [facility] Work Phone: Thin prep Papanicolaou smear with manual screeningon 04-28-2021 Thin prep Papanicolaou smear with manual screening 7 5-15 [facility] Work Phone: Absolute lymphocyte counton 04-26-2021 Lymphocytes Auto (Unsp spec) [#/Vol] 0.62 10*3/uL 0.83-4.51 [facility] Work Phone: Amorphous sediment detection in urine sediment by light microscopyon 04-26-2021 Amorphous sediment LM Ql (Urine sed) 1+ [facility] Work Phone: Basophil percentageon 2021 Basophil percentage 92 mg/dL 74-106 [facility] Work Phone: Basophil percentage 2.5 mg/dL 2.5-4.9 [facility] Work Phone: Basophil percentage 138 mmol/L 136-145 [facility] Work Phone: Basophil percentage 3.4 mmol/L 3.5-5.1 [facility] Work Phone: Basophil percentage 108 mmol/L 98-107 [facility] Work Phone: Basophils (Bld) [#/Vol] 5.2 10*3/uL 4.4-11.0 [facility] Work Phone: Basophils (Bld) [#/Vol] 4.0 10*3/uL 2.0-7.7 [facility] Work Phone: Basophils/100 WBC (Bld) 77.3 % 47-[address] [facility] Work Phone: Basophils/100 WBC (Bld) 1.3 % 0-[address] [facility] Work Phone: Basophils/100 WBC (Bld) 0.2 % 0-[address] [facility] Work Phone: Chloride [Moles/Vol] 108 mmol/L 98-107 [facility] Work Phone: Eosinophils/100 WBC (Bld) 1.3 % 0-5 [facility] Work Phone: Glucose [Mass/Vol] 92 mg/dL 74-106 [facility] Work Phone: Neutrophils (Bld) [#/Vol] 4.0 10*3/uL 2.0-7.7 [facility] Work Phone: Neutrophils/100 WBC (Bld) 77.3 % 47-70 [facility] Work Phone: Potassium [Moles/Vol] 3.4 mmol/L 3.5-5.1 [facility] Work Phone: Sodium [Moles/Vol] 138 mmol/L 136-145 [facility] Work Phone: WBC (Bld) [#/Vol] 5.2 10*3/uL 4.4-11.0 [facility] Work Phone: Basophil percentage 0-5 SEEN /hpf Wo elida [facility] Work Phone: Bilirubin Test strip Ql (U)o n 04-26-2021 Bilirubin Ql (U) Negative Negative [facility] Work Phone: Blood erythrocytes count (nu mber/volume)on 04-26-2021 RBC (Bld) [#/Vol] 3.82 10*6/uL 4.6-6.2 [facility] Work Phone: Blood hemoglobin measurement (mass/volume)on 04-26-2021 Hemoglobin (Bld) [Mass/Vol] 9.5 g/dL 13.0-16.5 [facility] Work Phone: Blood lymphocytes/100 leukoc yteson 04-26-2021 Lymphocytes/100 WBC (Bld) 11.9 % 19-41 [facility] Work Phone: Blood monocytes/100 leukocyt eson 04-26-2021 Monocytes/100 WBC (Bld) 8.5 % 0-[address] [facility] Work Phone: Blood platelet mean volumeon 04-26-2021 Platelet mean volume (Bld) [Entitic vol] 10.2 fL 6.2-12.0 [facility] Work Phone: Determination of erythrocyte mean corpuscular volume (MCV)on 04-26-2021 MCV (RBC) [Entitic vol] 80.9 fL 80-[address] [facility] Work Phone: Glucose Glucometer (BldC) [M ass/Vol]on 04-26-2021 Glucose [Mass/Vol] 238 mg/dL 74-106 [facility] Work Phone: Comment on above: MANAGEMENT OF PATIEN T CARE PER NURSING PROTOCOL Hematocrit Auto (Bld) [Volum e fraction]on 04-26-2021 Hematocrit (Bld) [Volume fraction] 30.9 % 40-54 [facility] Work Phone: Ketones Test strip Ql (U)on 04-26-2021 Ketones Ql (U) Negative Negative [facility] Work Phone: Laboratory - Chemistry and C hemistry - challengeon 04-26-2021 CO2 [Moles/Vol] 26.0 mmol/L 21.0-32.0 [facility] Work Phone: Magnesium [Mass/Vol] 1.6 mg/dL 1.6-2.6 [facility] Work Phone: Urea nitrogen/Creatinine [Mass ratio] 16.3 mg/mg 10-20 [facility] Work Phone: Laboratory - Hematology and Cell countson 04-26-2021 Erythrocyte distribution width (RBC) [Entitic vol] 48.0 fL 35.1-43.9 [facility] Work Phone: Erythrocyte distribution width (RBC) [Ratio] 16.5 % 11.6-14.6 [facility] Work Phone: Immature granulocytes/100 WBC (Bld) 0.800 % 0.0-0.9 [facility] Work Phone: Comment on above: IG% - Immature Granu locytes (promyelocytes, myelocytes and metamyelocytes) > 1% indicates that a LEFT SHIFT is Present. MCH (RBC) [Entitic mass] 24.9 pg 27.0-32.0 [facility] Work Phone: Nucleated RBC/100 WBC (Bld) [Ratio] 0 % 0-5 [facility] Work Phone: MCHC Auto (RBC) [Mass/Vol]on 04-26-2021 MCHC (RBC) [Mass/Vol] 30.7 g/dL 32-36 [facility] Work Phone: Comment on above: Delta: 32.4 on 04/25-0550 Mucus LM Ql (Urine sed)on Mucus Ql (Urine sed) 0 SEEN /hpf [facility] Work Phone: Nitrite Test strip Ql (U)on 04-26-2021 Nitrite Ql (U) Negative Negative [facility] Work Phone: No Panel Informationon 04-26 Estimated Creatinine Clearance Calc 51.82 ml/min [facility] Work Phone: Estimated GFR (MDRD) Amer 67 mL/min >60 [facility] Work Phone: Comment on above: GFR Calc Estimated GFR (MDRD) Non-Af Amer 55 mL/min >60 [facility] Work Phone: Comment on above: Non- GFR Calc 24.9 pg 27.0-32.0 [facility] Work Phone: 16.5 % 11.6-14.6 [facility] Work Phone: 48.0 fl 35.1-43.9 [facility] Work Phone: 0.800 % 0.0-0.9 [facility] Work Phone: 0 % 0-5 [facility] Work Phone: 55 mL/min >60 [facility] Work Phone: 67 mL/min >60 [facility] Work Phone: 51.82 ml/min [facility] Work Phone: 16.3 RATIO 10-20 [facility] Work Phone: 1.6 mg/dL 1.6-2.6 [facility] Work Phone: 26.0 mmol/L 21.0-32.0 [facility] Work Phone: Platelets bldon 04-26-2021 Platelets (Bld) [#/Vol] 190 10*3/uL 150-450 [facility] Work Phone: Protein Test strip Ql (U)on 04-26-2021 Protein Ql (U) 30 mg/dl Negative [facility] Work Phone: Serum or plasma calcium yocasta urement (mass/volume)on 04-26-2021 Calcium [Mass/Vol] 7.8 mg/dL 8.5-10.1 [facility] Work Phone: Serum or plasma creatinine m easurement (mass/volume)on 04-26-2021 Creatinine [Mass/Vol] 1.35 mg/dL 0.70-1.30 [facility] Work Phone: Comment on above: The validity of the calculated GFR & GFRAA in patients over 70 years has not been determined. Clinical correlation is essential. Serum or plasma urea nitroge n measurement (mass/volume)on 04-26-2021 Urea nitrogen [Mass/Vol] 22 mg/dL 7-18 [facility] Work Phone: Squamous epithelial cells de tection in urine sediment by light microscopyon 04-26-2021 Epithelial cells.squamous LM Ql (Urine sed) 0 SEEN /hpf [facility] Work Phone: Thin prep Papanicolaou smear with manual screeningon 04-26-2021 Thin prep Papanicolaou smear with manual screening 4 5-15 [facility] Work Phone: Urine blood detectionon RBC Ql (U) 25 /ul Negative [facility] Work Phone: RBC Ql (U) 0-5 SEEN /hpf [facility] Work Phone: Urine clarityon 04-26-2021 Clarity (U) Clear Clear [facility] Work Phone: Urine color determinationon 04-26-2021 Color (U) Yellow Yellow [facility] Work Phone: Urine glucose detectionon Glucose Ql (U) Normal mg/dl Normal [facility] Work Phone: Urine leukocyte esterase det ection by dipstickon 04-26-2021 Leukocyte esterase Test strip Ql (U) Negative Negative [facility] Work Phone: Urine pHon 04-26-2021 pH (U) 6.0 [pH] [facility] Work Phone: Urine sediment bacteria coun t by microscopy (number/high power field)on 04-26-2021 Bacteria LM.HPF (Urine sed) [#/Area] 2 /[HPF] None Seen [facility] Work Phone: Urine sediment yeast count b y microscopy (number/high powered field)on 04-26-2021 Yeast LM.HPF (Urine sed) [#/Area] 2 /[HPF] None Seen [facility] Work Phone: Urine specific gravity measu rementon 04-26-2021 Specific gravity (U) [Rel density] 1.010 [facility] Work Phone: Urobilinogen Auto test strip Ql (U)on 04-26-2021 Urobilinogen Ql (U) Normal mg/dl Normal [facility] Work Phone: Blood manual differential co mment interpretation (narrative result)on 04-25-2021 Manual differential comment Sohan (Bld) [Interp] SCANNED [facility] Work Phone: Comment on above: LYMPHOPENIA NOTED Serum or plasma vancomycin m easurement (mass/volume)on 04-25-2021 Vancomycin [Mass/Vol] 17.8 ug/mL 0.0-15.0 [facility] Work Phone: Comment on above: VANCOMYCIN STANDARD DRUG THERAPY: CRITICAL VALUE IS > 15.0 mg/L VANCOMYCIN HIGH INTENSITY THERAPY: CRITICAL VALUE IS > 20.0 mg/L PLEASE CONTACT PHARMACY SERVICES (#[id number]) FOR INTERPRETATIONOF RESULTS. THIS RESULT DOES NOT REPRESENT A PEAK OR TROUGHLEVEL FOR THIS DRUG. Vancomycin troughon 04-23-19 Vancomycin trough [Mass/Vol] 21.6 ug/mL 5.0-15.0 [facility] Work Phone: Comment on above: VANCOMYCIN STANDARED DRUG THERAPY TROUGH LEVEL: 5.0 - 15.0 mg/L VANCOMYCIN HIGH INTENSITY THERAPY TROUGH LEVEL: 15.0 - 20.0 mg/L High Intensity therapy recommended for serious lifethreatening infections include:- Smtyepzuix-Rimfwzhpohmy-Bgovrvbdn (Ventilator/Healtcare Associated)-Sepsis PLEASE CONTACT PHARMACY SERVICES (#[id number]) FOR INTERPRETATIONOF RESULTS. Basophil percentageon 2021 Basophil percentage 5.1 g/dL 6.4-8.2 [facility] Work Phone: Basophil percentage 0.70 mg/dL 0.20-1.00 [facility] Work Phone: Bilirubin [Mass/Vol] 0.70 mg/dL 0.20-1.00 [facility] Work Phone: Comment on above: For patients on eltr ombopag therapy, use of Dimension Harvel TBIL is not recommended. Protein [Mass/Vol] 5.1 g/dL 6.4-8.2 [facility]: [phone] Laboratory - Chemistry and C hemistry - challengeon 04-22-2021 Natriuretic peptide B (Bld) [Mass/Vol] 80.0 pg/mL 0-100 [facility] Work Phone: ALP [Catalytic activity/Vol] 63 U/L 45-117 [facility] Work Phone: ALT [Catalytic activity/Vol] 22 U/L 16-61 [facility] Work Phone: Globulin (S) [Mass/Vol] 3.1 g/dL 2.2-4.[address] [facility] Work Phone: Laboratory - Microbiology an d Antimicrobial susceptibilityon 04-22-2021 Bacteria identified Cx Nom (Bld) No growth in 5 days. [facility] Work Phone: No Panel Informationon 04-22 Troponin I High Sensitivity 20 pg/mL 3.0-78.0 [facility] Work Phone: [phone] Comment on above: Please Note: New Jennifer t Units and Gender Specific Reference Ranges. For more information see Policy Stat Procedure Harvel High Sensitivity Troponin (TNIH) and attachments. 20 pg/mL 3.0-78.0 [facility] Work Phone: 80.0 pg/mL 0-100 [facility] Work Phone: No growth in 5 days. [facility] Work Phone: [phone] 3.1 g/dL 2.2-4.2 [facility] Work Phone: [phone] 63 U/L 45-117 [facility] Work Phone: 22 U/L 16-61 [facility] Work Phone: Serum or plasma albumin yocasta urement (mass/volume)on 04-22-2021 Albumin [Mass/Vol] 2.0 g/dL 3.2-5.0 [facility] Work Phone: Serum or plasma albumin/glob ulin mass ratioon 04-22-2021 Albumin/Globulin [Mass ratio] 0.6 {ratio} 0.9-2.4 [facility] Work Phone: Serum procalcitonin measurem enton 04-22-2021 Procalcitonin [Mass/Vol] 0.13 ng/mL 0.00-0.09 [facility] Work Phone: Comment on above: A [...] smear with manual screening 15 U/L 15-37 [facility] Work Phone: Bacteria identified Cx Nom ( U)on 04-21-2021 Culture, urine Yeast, not Elisha albicans [facility] Work Phone: Culture, urine Positive [facility] Work Phone: [phone] Blood platelet adequacy dete ction by light microscopyon 04-21-2021 Platelets LM Ql (Bld) [facility]Q [facility]: Culture, urineon 04-21-2021 Bacteria identified Cx Nom (U) Yeast, not Elisha albicans [facility] Work Phone: Bacteria identified Cx Nom (U) Positive [facility] Work Phone: [phone] RBC morphologyon 04-21-2021 RBC morphology finding Nom (Bld) NORM C+C NORMAL NORM C&C [facility] Work Phone: [phone] Absolute lymphocyte counton 04-11-2021 Lymphocytes Auto (Unsp spec) [#/Vol] 0.50 10*3/uL 0.83-4.51 [facility] Work Phone: Basophil percentageon 2021 Basophil percentage 171 mg/dL 74-106 [facility] Work Phone: [phone] Basophil percentage 5.8 g/dL 6.4-8.2 [facility] Work Phone: [phone] Basophil percentage 0.30 mg/dL 0.20-1.00 [facility] Work Phone: [phone] Basophil percentage 135 mmol/L 136-145 [facility] Work Phone: [phone] Basophil percentage 3.8 mmol/L 3.5-5.1 [facility] Work Phone: [phone] Basophil percentage 103 mmol/L 98-107 [facility] Work Phone: [phone] Basophils (Bld) [#/Vol] 6.9 10*3/uL 4.4-11.0 [facility] Work Phone: Basophils (Bld) [#/Vol] 5.7 10*3/uL 2.0-7.7 [facility] Work Phone: [phone] Basophils/100 WBC (Bld) 83.4 % 47-[address] [facility] Work Phone: Basophils/100 WBC (Bld) 0.1 % 0-[address] [facility] Work Phone: [phone] Basophils/100 WBC (Bld) 0.3 % 0-[address] [facility] Work Phone: Bilirubin [Mass/Vol] 0.30 mg/dL 0.20-1.00 [facility] Work Phone: Comment on above: For patients on eltr ombopag therapy, use of Dimension Harvel TBIL is not recommended. Chloride [Moles/Vol] 103 mmol/L 98-107 [facility] Work Phone: Eosinophils/100 WBC (Bld) 0.1 % 0-5 [facility] Work Phone: Glucose [Mass/Vol] 171 mg/dL 74-106 [facility] Work Phone: Comment on above: Fasting Glucose resu lt greater than or equal to 126 mg/dL suggests DIABETES MELLITUS per A.D.A. criteria. Neutrophils (Bld) [#/Vol] 5.7 10*3/uL 2.0-7.7 [facility] Work Phone: [phone] Neutrophils/100 WBC (Bld) 83.4 % 47-70 [facility] Work Phone: [phone] Potassium [Moles/Vol] 3.8 mmol/L 3.5-5.1 [facility] Work Phone: Protein [Mass/Vol] 5.8 g/dL 6.4-8.2 [facility] Work Phone: Sodium [Moles/Vol] 135 mmol/L 136-145 [facility] Work Phone: [phone] WBC (Bld) [#/Vol] 6.9 10*3/uL 4.4-11.0 [facility] Work Phone: [phone] Blood erythrocytes count (nu mber/volume)on 04-11-2021 RBC (Bld) [#/Vol] 3.99 10*6/uL 4.6-6.2 [facility] Work Phone: Blood hemoglobin measurement (mass/volume)on 04-11-2021 Hemoglobin (Bld) [Mass/Vol] 10.2 g/dL 13.0-16.5 [facility] Work Phone: Blood lymphocytes/100 leukoc yteson 04-11-2021 Lymphocytes/100 WBC (Bld) 7.3 % 19-41 [facility] Work Phone: Blood manual differential co mment interpretation (narrative result)on 04-11-2021 Manual differential comment Sohan (Bld) [Interp] SCANNED [facility] Work Phone: Comment on above: LYMPHOPENIA NOTED Blood monocytes/100 leukocyt eson 04-11-2021 Monocytes/100 WBC (Bld) 7.7 % 0-[address] [facility] Work Phone: Blood platelet mean volumeon 04-11-2021 Platelet mean volume (Bld) [Entitic vol] 11.3 fL 6.2-12.0 [facility] Work Phone: Determination of erythrocyte mean corpuscular volume (MCV)on 04-11-2021 MCV (RBC) [Entitic vol] 75.9 fL 80-[address] [facility] Work Phone: Glucose Glucometer (BldC) [M ass/Vol]on 04-11-2021 Glucose [Mass/Vol] 162 mg/dL 70-110 [facility] Work Phone: Comment on above: MANAGEMENT OF PATIEN T CARE PER NURSING PROTOCOL Hematocrit Auto (Bld) [Volum e fraction]on 04-11-2021 Hematocrit (Bld) [Volume fraction] 30.3 % 40-54 [facility] Work Phone: Laboratory - Chemistry and C hemistry - challengeon 04-11-2021 ALP [Catalytic activity/Vol] 62 U/L 45-117 [facility] Work Phone: ALT [Catalytic activity/Vol] 29 U/L 16-61 [facility] Work Phone: CO2 [Moles/Vol] 24.0 mmol/L 21.0-32.0 [facility] Work Phone: Globulin (S) [Mass/Vol] 3.5 g/dL 2.2-4.[address] [facility] Work Phone: Magnesium [Mass/Vol] 1.8 mg/dL 1.6-2.6 [facility] Work Phone: Urea nitrogen/Creatinine [Mass ratio] 33.3 mg/mg 10-20 [facility] Work Phone: Laboratory - Hematology and Cell countson 04-11-2021 Erythrocyte distribution width (RBC) [Entitic vol] 43.0 fL 35.1-43.9 [facility] Work Phone: Erythrocyte distribution width (RBC) [Ratio] 15.9 % 11.6-14.6 [facility] Work Phone: Immature granulocytes/100 WBC (Bld) 1.200 % 0.0-0.9 [facility] Work Phone: Comment on above: IG% - Immature Granu locytes (promyelocytes, myelocytes and metamyelocytes) > 1% indicates that a LEFT SHIFT is Present. MCH (RBC) [Entitic mass] 25.6 pg 27.0-32.0 [facility] Work Phone: Nucleated RBC/100 WBC (Bld) [Ratio] 0 % 0-5 [facility] Work Phone: MCHC Auto (RBC) [Mass/Vol]on 04-11-2021 MCHC (RBC) [Mass/Vol] 33.7 g/dL 32-36 [facility] Work Phone: No Panel Informationon 04-11 Estimated Creatinine Clearance Calc 86.37 ml/min [facility] Work Phone: Estimated GFR (MDRD) Amer 121 mL/min >60 [facility] Work Phone: Comment on above: GFR Calc Estimated GFR (MDRD) Non-Af Amer 100 mL/min >60 [facility] Work Phone: Comment on above: Non- GFR Calc 25.6 pg 27.0-32.0 [facility] Work Phone: 15.9 % 11.6-14.6 [facility] Work Phone: 43.0 fl 35.1-43.9 [facility] Work Phone: 1.200 % 0.0-0.9 [facility] Work Phone: 0 % 0-5 [facility] Work Phone: 100 mL/min >60 [facility] Work Phone: 121 mL/min >60 [facility] Work Phone: 86.37 ml/min [facility] Work Phone: 33.3 RATIO 10-20 [facility] Work Phone: [phone] 3.5 g/dL 2.2-4.2 [facility] Work Phone: [phone] 62 U/L 45-117 [facility] Work Phone: [phone] 29 U/L 16-61 [facility] Work Phone: [phone] 1.8 mg/dL 1.6-2.6 [facility] Work Phone: [phone] 24.0 mmol/L 21.0-32.0 [facility] Work Phone: [phone] Platelets bldon 04-11-2021 Platelets (Bld) [#/Vol] 295 10*3/uL 150-450 [facility] Work Phone: [phone] Serum or plasma albumin yocasta urement (mass/volume)on 04-11-2021 Albumin [Mass/Vol] 2.3 g/dL 3.2-5.0 [facility] Work Phone: [phone] Serum or plasma albumin/glob ulin mass ratioon 04-11-2021 Albumin/Globulin [Mass ratio] 0.7 {ratio} 0.9-2.4 [facility] Work Phone: [phone] Serum or plasma calcium yocasta urement (mass/volume)on 04-11-2021 Calcium [Mass/Vol] 8.2 mg/dL 8.5-10.1 [facility] Work Phone: Serum or plasma creatinine m easurement (mass/volume)on 04-11-2021 Creatinine [Mass/Vol] 0.81 mg/dL 0.70-1.30 [facility] Work Phone: Comment on above: The validity of the calculated GFR & GFRAA in patients over 70 years has not been determined. Clinical correlation is essential. Serum or plasma urea nitroge n measurement (mass/volume)on 04-11-2021 Urea nitrogen [Mass/Vol] 27 mg/dL 7-18 [facility] Work Phone: Thin prep Papanicolaou smear with manual screeningon 04-11-2021 Thin prep Papanicolaou smear with manual screening 14 U/L 15-37 [facility] Work Phone: Thin prep Papanicolaou smear with manual screening 8 5-15 [facility] Work Phone: Review by pathologiston 03-27 Pathologist review Sohan (Unsp spec) [Interp] Reviewed [facility] Work Phone: Comment on above: Previous reported re sult: June laxmi Edited by: RGOOD on 04/11/21:0941LymphopeniaMicrocytic anemia.Clinical correlation suggested.Andrea Porter D.O. 04/11/21 AMENDED REPORT 04/11/21 0941 PATH REV previously reported as: Josephine hair Bronchoalveolar lavage cultu re with Gram stainon 04-09-2021 Respiratory microbial culture or Staphylococcus aureus isolated. [facility] Work Phone: Gram stain for investigation of transfusion reactionon 04-09-2021 Microscopic observation Gram stain Nom (Unsp spec) [facility] Work Phone: Assessment of wrist artery p atency prior to arterial punctureon 04-08-2021 Arterial patency Wrist artery --pre arterial puncture Positive [facility] Work Phone: Base excesson 04-08-2021 Base excess Calc (BldV) [Moles/Vol] 0 mmol/L -2-2 [facility] Work Phone: Basophil percentageon 2021 Basophil percentage 2.2 mmol/L 0.4-2.0 [facility] Work Phone: Lactate [Moles/Vol] 2.2 mmol/L 0.4-2.0 [facility] Work Phone: Basophil percentage 23.5 mmol/L 22-26 [facility] Work Phone: Basophils/100 WBC (Bld) 90 % 95-[address] [facility] Work Phone: Basophil percentage 0 SEEN /hpf [facility] Work Phone: Bilirubin Test strip Ql (U)o n 04-08-2021 Bilirubin Ql (U) Negative Negative [facility] Work Phone: CO2 (BldA) [Partial pressure ]on 04-08-2021 CO2 (Bld) [Partial pressure] 32.0 mm[Hg] 35-45 [facility] Work Phone: Ketones Test strip Ql (U)on 04-08-2021 Ketones Ql (U) Negative Negative [facility] Work Phone: Laboratory - Microbiology an d Antimicrobial susceptibilityon 04-08-2021 Bacteria identified Cx Nom (Bld) No growth in 5 days. [facility] Work Phone: Mucus LM Ql (Urine sed)on Mucus Ql (Urine sed) 0 SEEN /hpf [facility] Work Phone: Nitrite Test strip Ql (U)on 04-08-2021 Nitrite Ql (U) Negative Negative [facility] Work Phone: No Panel Informationon 04-08 Blood Gas Liter Flow 5.0 /min [facility] Work Phone: Blood Gas Sample Site L Radial [facility] Work Phone: Blood Gas Specimen Type ART [facility] Work Phone: Blood Gas Total CO2 25 mmol/L [facility] Work Phone: Oxygen Delivery Device Cannula [facility] Work Phone: ART [facility] Work Phone: L Radial [facility] Work Phone: Cannula [facility] Work Phone: 5.0 /min [facility] Work Phone: 25 mmol/L [facility] Work Phone: D-Dimer Quantitative (PE/DVT) 6.86 FEU/ug/m 0.27-0.49 [facility] Work Phone: Comment on above: D-Dimer ELEVATED (>0 .49): Additional studies and clinicalassessments are indicated to conclude diagnosis of:Deep Vein Thrombosis (DVT) or Pulmonary Embolism (PE)CRITICAL VALUE VERIFIED. CALLED TO TARAH HARRIS04/08/21 1414 Luz Fortune.RESULTS READ BACK BY SAME . Troponin I High Sensitivity 16 pg/mL 3.0-78.0 [facility] Work Phone: Comment on above: Please Note: New Jennifer t Units and Gender Specific Reference Ranges. For more information see Policy Stat Procedure Harvel High Sensitivity Troponin (TNIH) and attachments. 6.86 FEU/ug/m 0.27-0.49 [facility] Work Phone: 16 pg/mL 3.0-78.0 [facility] Work Phone: No growth in 5 days. [facility] Work Phone: Oxygen (BldA) [Partial press ure]on 04-08-2021 Oxygen (Bld) [Partial pressure] 55 mmHG 75-100 [facility] Work Phone: Protein Test strip Ql (U)on 04-08-2021 Protein Ql (U) 30 mg/dl Negative [facility] Work Phone: Squamous epithelial cells de tection in urine sediment by light microscopyon 04-08-2021 Epithelial cells.squamous LM Ql (Urine sed) 0-5 SEEN /hpf [facility] Work Phone: Urine blood detectionon 03-27 RBC Ql (U) 10 /ul Negative [facility] Work Phone: RBC Ql (U) 0-5 SEEN /hpf [facility] Work Phone: Urine clarityon 04-08-2021 Clarity (U) Clear Clear [facility] Work Phone: Urine color determinationon 04-08-2021 Color (U) Yellow Yellow [facility] Work Phone: Urine glucose detectionon Glucose Ql (U) 250 mg/dl Normal [facility] Work Phone: Urine leukocyte esterase det ection by dipstickon 04-08-2021 Leukocyte esterase Test strip Ql (U) Negative Negative [facility] Work Phone: Urine pHon 04-08-2021 pH (U) 6.0 [pH] [facility] Work Phone: Urine sediment bacteria coun t by microscopy (number/high power field)on 04-08-2021 Bacteria LM.HPF (Urine sed) [#/Area] RARE /hpf None Seen [facility] Work Phone: Urine specific gravity measu rementon 04-08-2021 Specific gravity (U) [Rel density] 1.015 [facility] Work Phone: Urobilinogen Auto test strip Ql (U)on 04-08-2021 Urobilinogen Ql (U) Normal mg/dl Normal [facility] Work Phone: pH measurementon 04-08-2021 pH (Unsp spec) 7.47 [pH] 7.35-7.45 [facility] Work Phone: Absolute lymphocyte counton 04-05-2021 Lymphocytes Auto (Unsp spec) [#/Vol] 1.16 10*3/uL 0.83-4.51 [facility] Work Phone: Basophil percentageon 2021 Basophil percentage 418 mg/dL 74-106 [facility] Work Phone: Basophil percentage 6.5 g/dL 6.4-8.2 [facility] Work Phone: Basophil percentage 0.60 mg/dL 0.20-1.00 [facility] Work Phone: Basophil percentage 135 mmol/L 136-145 [facility] Work Phone: [phone] Basophil percentage 3.8 mmol/L 3.5-5.1 [facility] Basophil percentage 104 mmol/L 98-107 [facility] Work Phone: [phone] Basophils (Bld) [#/Vol] 3.7 10*3/uL 4.4-11.0 [facility] Work Phone: Basophils (Bld) [#/Vol] 2.2 10*3/uL 2.0-7.7 [facility] Work Phone: Basophils/100 WBC (Bld) 60.8 % 47-[address] [facility] Work Phone: [phone] Basophils/100 WBC (Bld) 0.0 % 0-[address] [facility] Work Phone: Blood erythrocytes count (nu mber/volume)on 04-05-2021 RBC (Bld) [#/Vol] 3.96 10*6/uL 4.6-6.2 [facility] Work Phone: Blood hemoglobin measurement (mass/volume)on 04-05-2021 Hemoglobin (Bld) [Mass/Vol] 10.3 g/dL 13.0-16.5 [facility] Work Phone: [phone] Blood lymphocytes/100 leukoc yteson 04-05-2021 Lymphocytes/100 WBC (Bld) 31.4 % 19-41 [facility] Work Phone: [phone] Blood monocytes/100 leukocyt eson 04-05-2021 Monocytes/100 WBC (Bld) 7.3 % 0-[address] [facility] Work Phone: Blood platelet mean volumeon 04-05-2021 Platelet mean volume (Bld) [Entitic vol] 11.4 fL 6.2-12.0 [facility] Work Phone: Determination of erythrocyte mean corpuscular volume (MCV)on 04-05-2021 MCV (RBC) [Entitic vol] 82.3 fL 80-[address] [facility] Work Phone: Hematocrit Auto (Bld) [Volum e fraction]on 04-05-2021 Hematocrit (Bld) [Volume fraction] 32.6 % 40-54 [facility] Work Phone: MCHC Auto (RBC) [Mass/Vol]on 04-05-2021 MCHC (RBC) [Mass/Vol] 31.6 g/dL 32-36 [facility] Work Phone: No Panel Informationon 04-05 26.0 pg 27.0-32.0 [facility] Work Phone: 15.7 % 11.6-14.6 [facility] Work Phone: 47.4 fl 35.1-43.9 [facility] Work Phone: [phone] 0.500 % 0.0-0.9 [facility] Work Phone: 0 % 0-5 [facility] Work Phone: 61 mL/min >60 [facility] Work Phone: 74 mL/min >60 [facility] Work Phone: 32.3 RATIO 10-20 [facility] Work Phone: [phone] 3.9 g/dL 2.2-4.2 [facility] Work Phone: 69 U/L 45-117 [facility] Work Phone: 36 U/L 16-61 [facility] Work Phone: 21.0 mmol/L 21.0-32.0 [facility] Work Phone: Platelets bldon 04-05-2021 Platelets (Bld) [#/Vol] 195 10*3/uL 150-450 [facility] Work Phone: Serum or plasma albumin yocasta urement (mass/volume)on 04-05-2021 Albumin [Mass/Vol] 2.6 g/dL 3.2-5.0 [facility] Work Phone: Serum or plasma albumin/glob ulin mass ratioon 04-05-2021 Albumin/Globulin [Mass ratio] 0.7 {ratio} 0.9-2.4 [facility] Work Phone: Serum or plasma calcium yocasta urement (mass/volume)on 04-05-2021 Calcium [Mass/Vol] 8.8 mg/dL 8.5-10.1 [facility] Work Phone: Serum or plasma creatinine m easurement (mass/volume)on 04-05-2021 Creatinine [Mass/Vol] 1.24 mg/dL 0.70-1.30 [facility] Work Phone: Serum or plasma urea nitroge n measurement (mass/volume)on 04-05-2021 Urea nitrogen [Mass/Vol] 40 mg/dL 7-18 [facility] Work Phone: Thin prep Papanicolaou smear with manual screeningon 04-05-2021 Thin prep Papanicolaou smear with manual screening 26 U/L 15-37 [facility] Work Phone: Thin prep Papanicolaou smear with manual screening 10 5-15 [facility] Work Phone: Absolute lymphocyte counton 03-25-2021 Lymphocytes Auto (Unsp spec) [#/Vol] 0.90 10*3/uL 0.83-4.51 [facility] Work Phone: Basophil percentageon 2021 Basophil percentage 252 mg/dL 74-106 [facility] Work Phone: Basophil percentage 5.5 g/dL 6.4-8.2 [facility] Work Phone: Basophil percentage 0.30 mg/dL 0.20-1.00 [facility] Work Phone: Basophil percentage 136 mmol/L 136-145 [facility] Work Phone: [phone] Basophil percentage 4.3 mmol/L 3.5-5.1 [facility] Work Phone: [phone] Basophil percentage 105 mmol/L 98-107 [facility] Work Phone: Basophils (Bld) [#/Vol] 15.1 10*3/uL 4.4-11.0 [facility] Work Phone: [phone] Basophils (Bld) [#/Vol] 12.4 10*3/uL 2.0-7.7 [facility] Work Phone: Basophils/100 WBC (Bld) 82.3 % 47-[address] [facility] Work Phone: [phone] Basophils/100 WBC (Bld) 0.1 % 0-[address] [facility] Work Phone: Blood erythrocytes count (nu mber/volume)on 03-25-2021 RBC (Bld) [#/Vol] 3.59 10*6/uL 4.6-6.2 [facility] Work Phone: Blood hemoglobin measurement (mass/volume)on 03-25-2021 Hemoglobin (Bld) [Mass/Vol] 9.3 g/dL 13.0-16.5 [facility] Work Phone: [phone] Blood lymphocytes/100 leukoc yteson 03-25-2021 Lymphocytes/100 WBC (Bld) 6.0 % 19-41 [facility] Work Phone: [phone] Blood monocytes/100 leukocyt eson 03-25-2021 Monocytes/100 WBC (Bld) 8.8 % 0-[address] [facility] Work Phone: Blood platelet mean volumeon 03-25-2021 Platelet mean volume (Bld) [Entitic vol] 10.8 fL 6.2-12.0 [facility] Work Phone: [phone] Determination of erythrocyte mean corpuscular volume (MCV)on 03-25-2021 MCV (RBC) [Entitic vol] 81.1 fL 80-[address] [facility] Work Phone: Glucose Glucometer (BldC) [M ass/Vol]on 03-25-2021 Glucose [Mass/Vol] 389 mg/dL 70-110 [facility] Work Phone: Hematocrit Auto (Bld) [Volum e fraction]on 03-25-2021 Hematocrit (Bld) [Volume fraction] 29.1 % 40-54 [facility] Work Phone: MCHC Auto (RBC) [Mass/Vol]on 03-25-2021 MCHC (RBC) [Mass/Vol] 32.0 g/dL 32-36 [facility] Work Phone: No Panel Informationon 03-25 25.9 pg 27.0-32.0 [facility] Work Phone: [phone] 15.7 % 11.6-14.6 [facility] Work Phone: [phone] 45.5 fl 35.1-43.9 [facility] Work Phone: [phone] 2.700 % 0.0-0.9 [facility] Work Phone: [phone] 0 % 0-5 [facility] Work Phone: [phone] 119 mL/min >60 [facility] Work Phone: [phone] 144 mL/min >60 [facility] Work Phone: [phone] 72.16 ml/min [facility] Work Phone: [phone] 50.4 RATIO 10-20 [facility] Work Phone: 3.1 g/dL 2.2-4.2 [facility] Work Phone: [phone] 63 U/L 45-117 [facility] Work Phone: [phone] 22 U/L 16-61 [facility] Work Phone: 24.0 mmol/L 21.0-32.0 [facility] Work Phone: Platelets bldon 03-25-2021 Platelets (Bld) [#/Vol] 312 10*3/uL 150-450 [facility] Work Phone: Serum or plasma albumin yocasta urement (mass/volume)on 03-25-2021 Albumin [Mass/Vol] 2.4 g/dL 3.2-5.0 [facility] Work Phone: Serum or plasma albumin/glob ulin mass ratioon 03-25-2021 Albumin/Globulin [Mass ratio] 0.8 {ratio} 0.9-2.4 [facility] Work Phone: Serum or plasma calcium yocasta urement (mass/volume)on 03-25-2021 Calcium [Mass/Vol] 8.6 mg/dL 8.5-10.1 [facility] Work Phone: Serum or plasma creatinine m easurement (mass/volume)on 03-25-2021 Creatinine [Mass/Vol] 0.69 mg/dL 0.70-1.30 [facility] Work Phone: Serum or plasma urea nitroge n measurement (mass/volume)on 03-25-2021 Urea nitrogen [Mass/Vol] 35 mg/dL 7-18 [facility] Work Phone: Thin prep Papanicolaou smear with manual screeningon 03-25-2021 Thin prep Papanicolaou smear with manual screening 5 U/L 15-37 [facility] Work Phone: Thin prep Papanicolaou smear with manual screening 7 5-15 [facility] Work Phone: No Panel Informationon 03-24 1.9 mg/dL 1.6-2.6 [facility] Work Phone: Blood band neutrophil count as percentage of total leukocyteson 03-23-2021 Band form neutrophils/100 WBC (Bld) 4 % 0-5 [facility] Work Phone: Blood lymphocytes/100 leukoc yteson 03-23-2021 Lymphocytes/100 WBC (Bld) 7 % 19-41 [facility] Work Phone: Blood metamyelocytes/100 dangelo kocyteson 03-23-2021 Metamyelocytes/100 WBC (Bld) 3 % 0-1 [facility] Work Phone: Blood monocytes/100 leukocyt eson 03-23-2021 Monocytes/100 WBC (Bld) 7 % 0-[address] [facility] Work Phone: Blood platelet adequacy dete ction by light microscopyon 03-23-2021 Platelets LM Ql (Bld) ADEQUATE ADEQ [facility] Work Phone: Blood segmented neutrophils/ 100 leukocyteson 03-23-2021 Segmented neutrophils/100 WBC (Bld) 79 % 47-70 [facility] Work Phone: RBC morphologyon 03-23-2021 RBC morphology finding Nom (Bld) NORM C+C NORMAL NORM C&C [facility] Work Phone: Review by pathologiston 02-25 Pathologist review Sohan (Unsp spec) [Interp] Reviewed [facility] Work Phone: Total cell counton 2 Cells counted Molgen (Bld/Tiss) [#] 100 MANUAL DIFF [facility] Work Phone: Basophil percentageon 2021 Basophil percentage 1.7 mmol/L 0.4-2.0 [facility] Work Phone: Blood manual differential co mment interpretation (narrative result)on 03-22-2021 Manual differential comment Sohan (Bld) [Interp] SCANNED [facility] Work Phone: No Panel Informationon 03-22 429 mg/dl 203-444 [facility] Work Phone: 1.02 FEU/ug/m 0.27-0.49 [facility] Work Phone: 24 U/L 39-308 [facility] Work Phone: [phone] 14 pg/mL 3.0-78.0 [facility] Work Phone: 87.9 pg/mL 0-100 [facility] Work Phone: [phone] No growth in 5 days. [facility] Work Phone: Serum or plasma C reactive p rotein measurement (mass/volume)on 03-22-2021 CRP [Mass/Vol] 9.08 mg/L 0.0-3.0 [facility] Work Phone: Serum procalcitonin measurem enton 03-22-2021 Procalcitonin [Mass/Vol] 0.16 ng/mL 0.00-0.09 [facility] Work Phone: Thin prep Papanicolaou smear with manual screeningon 03-22-2021 Thin prep Papanicolaou smear with manual screening 188 U/L 87-241 [facility] Work Phone: Absolute lymphocyte counton 03-14-2021 Lymphocytes Auto (Unsp spec) [#/Vol] 1.11 10*3/uL 0.83-4.51 [facility] Work Phone: Basophil percentageon 2021 Basophil percentage 246 mg/dL 74-106 [facility] Work Phone: Basophil percentage 6.7 g/dL 6.4-8.2 [facility] Work Phone: [phone] Basophil percentage 0.40 mg/dL 0.20-1.00 [facility] Work Phone: [phone] Basophil percentage 140 mmol/L 136-145 [facility] Work Phone: [phone] Basophil percentage 4.0 mmol/L 3.5-5.1 [facility] Work Phone: [phone] Basophil percentage 107 mmol/L 98-107 [facility] Work Phone: [phone] Basophil percentage 1.7 mmol/L 0.4-2.0 [facility] Work Phone: [phone] Basophils (Bld) [#/Vol] 8.2 10*3/uL 4.4-11.0 [facility] Work Phone: [phone] Basophils (Bld) [#/Vol] 5.4 10*3/uL 2.0-7.7 [facility] Work Phone: [phone] Basophils/100 WBC (Bld) 66.0 % 47-[address] [facility] Work Phone: [phone] Basophils/100 WBC (Bld) 5.5 % 0-[address] [facility] Work Phone: Basophils/100 WBC (Bld) 0.6 % 0-[address] [facility] Work Phone: Blood erythrocytes count (nu mber/volume)on 03-14-2021 RBC (Bld) [#/Vol] 4.05 10*6/uL 4.6-6.2 [facility] Work Phone: Blood hemoglobin measurement (mass/volume)on 03-14-2021 Hemoglobin (Bld) [Mass/Vol] 10.4 g/dL 13.0-16.5 [facility] Work Phone: Blood lymphocytes/100 leukoc yteson 03-14-2021 Lymphocytes/100 WBC (Bld) 13.6 % 19-41 [facility] Work Phone: Blood monocytes/100 leukocyt eson 03-14-2021 Monocytes/100 WBC (Bld) 13.6 % 0-[address] [facility] Work Phone: Blood platelet mean volumeon 03-14-2021 Platelet mean volume (Bld) [Entitic vol] 10.1 fL 6.2-12.0 [facility] Work Phone: [phone] Determination of erythrocyte mean corpuscular volume (MCV)on 03-14-2021 MCV (RBC) [Entitic vol] 84.2 fL 80-[address] [facility] Work Phone: Hematocrit Auto (Bld) [Volum e fraction]on 03-14-2021 Hematocrit (Bld) [Volume fraction] 34.1 % 40-54 [facility] Work Phone: MCHC Auto (RBC) [Mass/Vol]on 03-14-2021 MCHC (RBC) [Mass/Vol] 30.5 g/dL 32-36 [facility] Work Phone: [phone] No Panel Informationon 03-14 25.7 pg 27.0-32.0 [facility] Work Phone: [phone] 14.8 % 11.6-14.6 [facility] Work Phone: [phone] 45.6 fl 35.1-43.9 [facility] Work Phone: [phone] 0.700 % 0.0-0.9 [facility] Work Phone: 0 % 0-5 [facility] Work Phone: 1.44 FEU/ug/m 0.27-0.49 [facility] Work Phone: [phone] 99 mL/min >60 [facility] Work Phone: [phone] 120 mL/min >60 [facility] Work Phone: [phone] 88.00 ml/min [facility] Work Phone: [phone] 24.5 RATIO 10-20 [facility] Work Phone: [phone] 3.7 g/dL 2.2-4.2 [facility] Work Phone: [phone] 10 pg/mL 3.0-78.0 [facility] Work Phone: [phone] 80 U/L 45-117 [facility] Work Phone: [phone] 22 U/L 16-61 [facility] Work Phone: [phone] 26.0 mmol/L 21.0-32.0 [facility] Work Phone: [phone] SARS-CoV-2 (COVID 19) [facility] Work Phone: [phone] No growth in 5 days. [facility] Work Phone: [phone] Platelets bldon 03-14-2021 Platelets (Bld) [#/Vol] 384 10*3/uL 150-450 [facility] Work Phone: Serum or plasma albumin yocasta urement (mass/volume)on 03-14-2021 Albumin [Mass/Vol] 3.0 g/dL 3.2-5.0 [facility] Work Phone: Serum or plasma albumin/glob ulin mass ratioon 03-14-2021 Albumin/Globulin [Mass ratio] 0.8 {ratio} 0.9-2.4 [facility] Work Phone: Serum or plasma calcium yocasta urement (mass/volume)on 03-14-2021 Calcium [Mass/Vol] 8.9 mg/dL 8.5-10.1 [facility] Work Phone: Serum or plasma creatinine m easurement (mass/volume)on 03-14-2021 Creatinine [Mass/Vol] 0.82 mg/dL 0.70-1.30 [facility] Work Phone: Serum or plasma urea nitroge n measurement (mass/volume)on 03-14-2021 Urea nitrogen [Mass/Vol] 20 mg/dL 7-18 [facility] Work Phone: Thin prep Papanicolaou smear with manual screeningon 03-14-2021 Thin prep Papanicolaou smear with manual screening 10 U/L 15-37 [facility] Work Phone: Thin prep Papanicolaou smear with manual screening 7 5-15 [facility] Work Phone: Absolute lymphocyte counton 02-05-2021 Lymphocytes Auto (Unsp spec) [#/Vol] 1.91 10*3/uL 0.83-4.51 [facility] Work Phone: Basophil percentageon 2020 Basophil percentage 92 mg/dL 74-106 [facility] Work Phone: Basophil percentage 6.7 g/dL 6.4-8.2 [facility] Work Phone: Basophil percentage 0.40 mg/dL 0.20-1.00 [facility] Work Phone: Basophil percentage 101 mg/dL <200 [facility]: Bas[facility] 80 mg[facility]: Basophil percentage 139 mmol/L 136-145 [facility] Work Phone: Basophil percentage 4.1 mmol/L 3.5-5.1 [facility] Work Phone: Basophil percentage 107 mmol/L 98-107 [facility] Work Phone: Basophils (Bld) [#/Vol] 8.9 10*3/uL 4.4-11.0 [facility] Work Phone: [phone] Basophils (Bld) [#/Vol] 5.0 10*3/uL 2.0-7.7 [facility] Work Phone: [phone] Basophils/100 WBC (Bld) 5.9 % 0-[address] [facility] Work Phone: [phone] Blood erythrocytes count (nu mber/volume)on 02-05-2021 RBC (Bld) [#/Vol] 3.94 10*6/uL 4.6-6.2 [facility] Work Phone: [phone] Blood hemoglobin measurement (mass/volume)on 02-05-2021 Hemoglobin (Bld) [Mass/Vol] 10.6 g/dL 13.0-16.5 [facility] Work Phone: Blood lymphocytes/100 leukoc yteson 02-05-2021 Lymphocytes/100 WBC (Bld) 21.5 % 19-41 [facility] Work Phone: Blood monocytes/100 leukocyt eson 02-05-2021 Monocytes/100 WBC (Bld) 14.4 % 0-[address] [facility] Work Phone: Blood platelet mean volumeon 02-05-2021 Platelet mean volume (Bld) [Entitic vol] 11.1 fL 6.2-12.0 [facility] Work Phone: Determination of erythrocyte mean corpuscular volume (MCV)on 02-05-2021 MCV (RBC) [Entitic vol] 83.5 fL 80-[address] [facility] Work Phone: [phone] Hematocrit Auto (Bld) [Volum e fraction]on 02-05-2021 Hematocrit (Bld) [Volume fraction] 32.9 % 40-54 [facility] Work Phone: Laboratory - Hematology and Cell countson 02-05-2021 Basophils/100 WBC (Unsp spec) 0.8 % 0-1 [facility] Work Phone: [phone] MCHC Auto (RBC) [Mass/Vol]on 02-05-2021 MCHC (RBC) [Mass/Vol] 32.2 g/dL 32-36 [facility] Work Phone: No Panel Informationon 02-05 26.9 pg 27.0-32.0 [facility] Work Phone: [phone] 14.5 % 11.6-14.6 [facility] Work Phone: [phone] 44.3 fl 35.1-43.9 [facility] Work Phone: [phone] 56.5 % 47-70 [facility] Work Phone: [phone] 0.900 % 0.0-0.9 [facility] Work Phone: [phone] 0 % 0-5 [facility] Work Phone: 114 mL/min >60 [facility] Work Phone: 138 mL/min >60 [facility] Work Phone: 20.7 RATIO 10-20 [facility] Work Phone: 3.6 g/dL 2.2-4.2 [facility] Work Phone: 93 U/L 45-117 [facility] Work Phone: 19 U/L 16-61 [facility] Work Phone: 25.0 mmol/L 21.0-32.0 [facility] Work Phone: 1.9 pg/mL 2.18-3.98 [facility] Work Phone: 0.92 uIU/mL 0.358-3.74 [facility] Work Phone: 0.92 ng/mL 0.00-4.00 [facility] Work Phone: 1.28 ng/dL 0.76-1.46 [facility] Work Phone: 27.1 ng/mL [facility] Work Phone: Platelets bldon 02-05-2021 Platelets (Bld) [#/Vol] 374 10*3/uL 150-450 [facility] Work Phone: Serum or plasma albumin yocasta urement (mass/volume)on 02-05-2021 Albumin [Mass/Vol] 3.1 g/dL 3.2-5.0 [facility] Work Phone: Serum or plasma albumin/glob ulin mass ratioon 02-05-2021 Albumin/Globulin [Mass ratio] 0.9 {ratio} 0.9-2.4 [facility] Work Phone: Serum or plasma calcium yocasta urement (mass/volume)on 02-05-2021 Calcium [Mass/Vol] 8.7 mg/dL 8.5-10.1 [facility] Work Phone: Serum or plasma cholesterol in HDL measurement (mass/volume)on 02-05-2021 Cholesterol in HDL [Mass/Vol] 35 mg/dL [facility] Work Phone: Serum or plasma cholesterol in VLDL measurement (mass/volume)on 02-05-2021 Cholesterol in VLDL [Mass/Vol] 16 mg/dL 5-40 [facility] Work Phone: Serum or plasma creatinine m easurement (mass/volume)on 02-05-2021 Creatinine [Mass/Vol] 0.72 mg/dL 0.70-1.30 [facility] Work Phone: Serum or plasma low density lipoprotein (LDL) cholesterol measurement (mass/volume)on 02-05-2021 Cholesterol in LDL [Mass/Vol] 50 mg/dL 0-130 [facility] Work Phone: Serum or plasma urea nitroge n measurement (mass/volume)on 02-05-2021 Urea nitrogen [Mass/Vol] 15 mg/dL 7-18 [facility] Work Phone: Thin prep Papanicolaou smear with manual screeningon 02-05-2021 Thin prep Papanicolaou smear with manual screening 13 U/L 15-37 [facility] Work Phone: Thin prep Papanicolaou smear with manual screening 7 5-15 [facility] Work Phone: CNOVSPon 01-12-2019 CNOVSP Visit (SP) Office ([facility]) SAL ALONZO ([id number]) 1950 M Date Time Provider Department 01/12/19 [...] of GI bleeding however. 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 No [...] leg. SKIN: No jaundice or rash. NEUROLOGIC: ichthyologist II-XII are grossly intact. 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 Normal 30.3-565.7 [facility] Comment on above: Result Comment: Acco unt Credited Iron and TIBCon 01-12-2019 Iron [Mass/Vol] Test sent to [facility]. Normal 41-186 [facility] Comment on above: Result Comment: Acco unt Credited TIBC Test sent to [facility]. Normal 232-386 [facility] Comment on above: Result Comment: Acco unt Credited Transferrin Saturatn Test sent to [facility]. Normal 15-57 [facility] Comment on above: Result Comment: Acco unt Credited PROGRESSon 01-12-2019 PROGRESS HNO ID: [id number] Author: Sal Mcconnell Service: ? Author Type: [...] of GI bleeding however. 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 No [...] leg. SKIN: No jaundice or rash. NEUROLOGIC: ichthyologist II-XII are grossly intact. No focal motor [...] to his satisfaction. Sal Mcconnell, DO Normal [facility] CBCon 01-12-2019 Erythrocyte distribution width (RBC) [Ratio] 17.9 % High 11.5-15.0 [facility] Hematocrit (Bld) [Volume fraction] 36.4 % Low 39.0-51.0 [facility] Hemoglobin (Bld) [Mass/Vol] 12.0 g/dL Low 13.0-17.0 [facility] MCH (RBC) [Entitic mass] 27.3 pg Normal 26.0-34.0 [facility] MCHC (RBC) [Mass/Vol] 33.0 g/dL Normal 30.5-36.0 [facility] MCV (RBC) [Entitic vol] 82.7 fL Normal 80.0-100.0 [facility] Platelet mean volume (Bld) [Entitic vol] 10.1 fL Normal 9.0-12.7 [facility] Comment on above: Result Comment: Test performed by: [facility] [address] [place] [address]. RBC (Bld) [#/Vol] 4.40 10*6/uL Normal 4.20-6.00 [facility] WBC (Bld) [#/Vol] 6.72 10*3/uL Normal 3.70-11.00 [facility] Platelet Cnt 289 k/uL Normal 150-400 [facility] Bronchoalveolar lavage cultu re with Gram stain Respiratory Culture Citrobacter freundii [facility] Work Phone: Respiratory microbial culture or Staphylococcus aureus isolated. [facility] Work Phone: Culture, urine Bacteria identified Cx Nom (U) Positive [facility] Work Phone: Gram stain for investigation of transfusion reaction Microscopic observation Gram stain Nom (Unsp spec) [facility] Work Phone: Influenza virus A and B and SARS-CoV-2 (COVID-19) Ag panel - Upper respiratory specim SARS-CoV-2 (COVID-19) RNA JUSTIN+probe Ql (Resp) [facility] Work Phone: Laboratory - Microbiology an d Antimicrobial susceptibility Bacteria identified Cx Nom (Bld) No growth in 5 days. [facility] Work Phone: Respiratory pathogens DNA and RNA 12b panel JUSTIN+probe (Unsp spec) [facility] Work Phone: Lower GI hemoglobin IA Ql (S tl) Stool Occult Blood (FOREST) Positive [facility] Work Phone: Microbial respiratory cultur e Bacteria identified Respiratory culture Nom (Unsp spec) or Staphylococcus aureus isolated. [facility] Work Phone: No Panel Information Respiratory Panel (PCR) Rhinovirus [facility] Work Phone: SARS-CoV-2 & FLU Antigen (Rapid) [facility] Work Phone: Streptococcus pneumoniae Antigen (M [facility] Work Phone: Urine Legionella pneumophila antigen detection L. pneumophila Ag Ql (U) [facility] Work Phone: Vital Signs Date Time Vital Sign Value Performing Clinician Facility 12-06-2024 10:22-0400 Body height 180.[address] Donna Will MD Work Phone: [facility] 12-06-2024 10:22-0400 Body mass index (BMI) [Ratio] 30.3 kg/m2 Dr. Donna Will MD Work Phone: [facility] 12-06-2024 10:22-0400 Body temperature 97.5 [degF] Dr. Donna Will MD Work Phone: [facility] 12-06-2024 10:22-0400 Body weight 98.[address] Donna Will MD Work Phone: [facility] 12-06-2024 10:22-0400 Diastolic blood pressure 71 mm[Hg] Dr. Donna Will MD Work Phone: [facility] 12-06-2024 10:22-0400 Heart rate 82 /min Dr. Donna Will MD Work Phone: [facility] 12-06-2024 10:22-0400 Inhaled oxygen flow rate 3 L/min Dr. Donna Will MD Work Phone: [facility] 12-06-2024 10:22-0400 Respiratory rate 18 /min Dr. Donna Will MD Work Phone: [facility] 12-06-2024 10:22-0400 SaO2% (BldA) [Mass fraction] 97 % Dr. Donna Will MD Work Phone: [facility] 12-06-2024 10:22-0400 Systolic blood pressure 104 mm[Hg] Dr. Donna Will MD Work Phone: [facility] 12-06-2024 08:40-0400 Body mass index (BMI) [Ratio] 30.3 kg/m2 Dr. Donna Will MD Work Phone: [facility] 12-06-2024 08:40-0400 Body temperature 98.4 [degF] Dr. Donna Will MD Work Phone: [phone] [place] [address] 12-06-2024 08:40-0400 Body weight 98.[address] Donna Will MD Work Phone: [facility] 12-06-2024 08:40-0400 Diastolic blood pressure 56 mm[Hg] Dr. Donna Will MD Work Phone: [facility] 12-06-2024 08:40-0400 Heart rate 74 /min Dr. Donna Will MD Work Phone: [facility] 12-06-2024 08:40-0400 Inhaled oxygen flow rate 3 L/min Dr. Donna Will MD Work Phone: [facility] 12-06-2024 08:40-0400 Respiratory rate 16 /min Dr. Donna Will MD Work Phone: [facility] 12-06-2024 08:40-0400 SaO2% (BldA) [Mass fraction] 86 % Dr. Donna Will MD Work Phone: [facility] 12-06-2024 08:40-0400 Systolic blood pressure 88 mm[Hg] Dr. Donna Will MD Work Phone: [facility] 10-08-2024 08:22-0400 Body mass index (BMI) [Ratio] 29.2 kg/m2 Dr. Donna Will MD Work Phone: [facility] 10-08-2024 08:22-0400 Body weight 95.[address] Donna Will MD Work Phone: [facility] 10-08-2024 08:22-0400 Diastolic blood pressure 60 mm[Hg] Dr. Donna Will MD Work Phone: [facility] 10-08-2024 08:22-0400 Heart rate 75 /min Dr. Donna Will MD Work Phone: [facility] 10-08-2024 08:22-0400 Inhaled oxygen flow rate 5 L/min Dr. Donna Will MD Work Phone: [facility] 10-08-2024 08:22-0400 Respiratory rate 20 /min Dr. Donna Will MD Work Phone: [facility] 10-08-2024 08:22-0400 SaO2% (BldA) [Mass fraction] 90 % Dr. Dnona Will MD Work Phone: [facility] 10-08-2024 08:22-0400 Systolic blood pressure 112 mm[Hg] Dr. Donna Will MD Work Phone: [facility] 09-24-2024 08:40-0400 Body height 180.[address] Donna Will MD Work Phone: [facility] 09-24-2024 08:40-0400 Body mass index (BMI) [Ratio] 28.2 kg/m2 Dr. Donna Will MD Work Phone: [facility] 09-24-2024 08:40-0400 Body temperature 97.3 [degF] Dr. Donna Will MD Work Phone: [facility] 09-24-2024 08:40-0400 Body weight 91.[address] Donna Will MD Work Phone: [facility] 09-24-2024 08:40-0400 Diastolic blood pressure 59 mm[Hg] Dr. Donna Will MD Work Phone: [facility] 09-24-2024 08:40-0400 Heart rate 71 /min Dr. Donna Will MD Work Phone: [facility] 09-24-2024 08:40-0400 Inhaled oxygen flow rate 4 L/min Dr. Donna Will MD Work Phone: [facility] 09-24-2024 08:40-0400 Respiratory rate 20 /min Dr. Donna Will MD Work Phone: [facility] 09-24-2024 08:40-0400 SaO2% (BldA) [Mass fraction] 92 % Dr. Donna Will MD Work Phone: [facility] 09-24-2024 08:40-0400 Systolic blood pressure 103 mm[Hg] Dr. Donna Will MD Work Phone: [facility] 09-16-2024 10:08-0400 Body height 180.[address] Donna Will MD Work Phone: [facility] 09-16-2024 10:08-0400 Body mass index (BMI) [Ratio] 27.9 kg/m2 Dr. Donna Will MD Work Phone: [facility] 09-16-2024 10:08-0400 Body temperature 98.2 [degF] Dr. Donna Will MD Work Phone: [facility] 09-16-2024 10:08-0400 Body weight 90.[address] Donna Will MD Work Phone: [facility] 09-16-2024 10:08-0400 Diastolic blood pressure 58 mm[Hg] Dr. Donna Will MD Work Phone: [facility] 09-16-2024 10:08-0400 Heart rate 66 /min Dr. Donna Will MD Work Phone: [facility] 09-16-2024 10:08-0400 Inhaled oxygen flow rate 5 L/min Dr. Donna Will MD Work Phone: [facility] 09-16-2024 10:08-0400 Respiratory rate 16 /min Dr. Donna Will MD Work Phone: [facility] 09-16-2024 10:08-0400 SaO2% (BldA) [Mass fraction] 89 % Dr. Donna Will MD Work Phone: [facility] 09-16-2024 10:08-0400 Systolic blood pressure 107 mm[Hg] Dr. Donna Will MD Work Phone: [facility] 09-13-2024 09:46-0400 Body height 180.[address] Donna Will MD Work Phone: [facility] 09-13-2024 09:46-0400 Body temperature 97 [degF] Dr. Donna Will MD Work Phone: [facility] 09-13-2024 09:46-0400 Diastolic blood pressure 51 mm[Hg] Dr. Donna Will MD Work Phone: [facility] 09-13-2024 09:46-0400 Heart rate 65 /min Dr. Donna Will MD Work Phone: [facility] 09-13-2024 09:46-0400 Inhaled oxygen flow rate 4 L/min Dr. Donna Will MD Work Phone: [facility] 09-13-2024 09:46-0400 Respiratory rate 18 /min Dr. Donna Will MD Work Phone: [facility] 09-13-2024 09:46-0400 SaO2% (BldA) [Mass fraction] 93 % Dr. Donna Will MD Work Phone: [facility] 09-13-2024 09:46-0400 Systolic blood pressure 98 mm[Hg] Dr. Donna Will MD Work Phone: [facility] 08-25-2024 15:14-0400 Body temperature 98.2 [degF] Dr. Donna Will MD Work Phone: [facility] 08-25-2024 15:14-0400 Diastolic blood pressure 61 mm[Hg] Dr. Donna Will MD Work Phone: [facility] 08-25-2024 15:14-0400 Heart rate 74 /min Dr. Donna Will MD Work Phone: [facility] 08-25-2024 15:14-0400 Inhaled oxygen flow rate 4 L/min Dr. Donna Will MD Work Phone: [facility] 08-25-2024 15:14-0400 Respiratory rate 20 /min Dr. Donna Will MD Work Phone: [facility] 08-25-2024 15:14-0400 SaO2% (BldA) [Mass fraction] 94 % Dr. Donna Will MD Work Phone: [facility] 08-25-2024 15:14-0400 Systolic blood pressure 113 mm[Hg] Dr. Donna Will MD Work Phone: [facility] 08-25-2024 03:26-0400 Body mass index (BMI) [Ratio] 30.8 kg/m2 Dr. Donna Will MD Work Phone: [facility] 08-25-2024 03:26-0400 Body weight 100.[address] Donna Will MD Work Phone: [facility] 08-23-2024 01:45-0400 Inhaled oxygen concentration 35 % Dr. Donna Will MD Work Phone: [facility] 08-22-2024 09:47-0400 Body height 180.[address] Donna Will MD Work Phone: [facility] 08-21-2024 13:00-0400 Body temperature 98.1 [degF] Dr. Donna Will MD Work Phone: [facility] 08-21-2024 13:00-0400 Diastolic blood pressure 66 mm[Hg] Dr. Donna Will MD Work Phone: [facility] 08-21-2024 13:00-0400 Heart rate 82 /min Dr. Donna Will MD Work Phone: [facility] 08-21-2024 13:00-0400 Respiratory rate 25 /min Dr. Donna Will MD Work Phone: [facility] 08-21-2024 13:00-0400 SaO2% (BldA) [Mass fraction] 97 % Dr. Donna Will MD Work Phone: [facility] 08-21-2024 13:00-0400 Systolic blood pressure 133 mm[Hg] Dr. Donna Will MD Work Phone: [facility] 08-21-2024 12:00-0400 Inhaled oxygen concentration 40 % Dr. Donna Will MD Work Phone: [facility] 08-21-2024 10:52-0400 Inhaled oxygen flow rate 5 L/min Dr. Donna Will MD Work Phone: [facility] 08-21-2024 10:26-0400 Body height 180.[address] Donna Will MD Work Phone: [facility] 08-21-2024 10:26-0400 Body mass index (BMI) [Ratio] 31.4 kg/m2 Dr. Donna Will MD Work Phone: [facility] 08-21-2024 10:26-0400 Body weight 102.[address] Donna Will MD Work Phone: [facility] 08-03-2024 14:23-0400 Body temperature 96.4 [degF] Dr. Donna Will MD Work Phone: [facility] 08-03-2024 14:23-0400 Diastolic blood pressure 50 mm[Hg] Dr. Donna Will MD Work Phone: [facility] 08-03-2024 14:23-0400 Heart rate 70 /min Dr. Donna Will MD Work Phone: [facility] 08-03-2024 14:23-0400 Respiratory rate 16 /min Dr. Donna Will MD Work Phone: [facility] [facility] 08-03-2024 14:23-0400 Systolic blood pressure 105 mm[Hg] Dr. Donna Will MD Work Phone: [facility] 08-03-2024 13:46-0400 Body mass index (BMI) [Ratio] 32.3 kg/m2 Dr. Donna Will MD Work Phone: [facility] 08-03-2024 13:46-0400 Body weight 105.[address] Donna Will MD Work Phone: [facility] 08-03-2024 13:46-0400 Inhaled oxygen flow rate 4 L/min Dr. Donna Will MD Work Phone: [facility] 08-03-2024 13:46-0400 SaO2% (BldA) [Mass fraction] 90 % Dr. Donna Will MD Work Phone: [facility] 07-20-2024 14:48-0400 Body height 180.[address] Donna Will MD Work Phone: [facility] 07-20-2024 14:48-0400 Body temperature 98.2 [degF] Dr. Donna Will MD Work Phone: [facility] 07-20-2024 14:48-0400 Diastolic blood pressure 58 mm[Hg] Dr. Donna Will MD Work Phone: [facility] 07-20-2024 14:48-0400 Heart rate 80 /min Dr. Donna Will MD Work Phone: [facility] 07-20-2024 14:48-0400 Inhaled oxygen flow rate 4 L/min Dr. Donna Will MD Work Phone: [facility] 07-20-2024 14:48-0400 Respiratory rate 18 /min Dr. Donna Will MD Work Phone: [facility] 07-20-2024 14:48-0400 SaO2% (BldA) [Mass fraction] 99 % Dr. Donna Will MD Work Phone: [facility] 07-20-2024 14:48-0400 Systolic blood pressure 112 mm[Hg] Dr. Donna Will MD Work Phone: [facility] 07-08-2024 17:00-0400 Body temperature 97.8 [degF] Dr. Donna Will MD Work Phone: [facility] 07-08-2024 17:00-0400 Diastolic blood pressure 78 mm[Hg] Dr. Donna Will MD Work Phone: [facility] 07-08-2024 17:00-0400 Heart rate 79 /min Dr. Donna Will MD Work Phone: [facility] 07-08-2024 17:00-0400 Respiratory rate 19 /min Dr. Donna Will MD Work Phone: [facility] 07-08-2024 17:00-0400 SaO2% (BldA) [Mass fraction] 100 % Dr. Donna Will MD Work Phone: [facility] 07-08-2024 17:00-0400 Systolic blood pressure 121 mm[Hg] Dr. Donna Will MD Work Phone: [facility] 07-08-2024 16:00-0400 Inhaled oxygen flow rate 4 L/min Dr. Donna Will MD Work Phone: [facility] 07-08-2024 12:29-0400 Body height 180.[address] Donna Will MD Work Phone: [facility] 06-30-2024 10:14-0400 Body mass index (BMI) [Ratio] 30.5 kg/m2 Dr. Donna Will MD Work Phone: [facility] 06-30-2024 10:14-0400 Body temperature 98.2 [degF] Dr. Donna Will MD Work Phone: [facility] 06-30-2024 10:14-0400 Body weight 99.[address] Donna Will MD Work Phone: [facility] 06-30-2024 10:14-0400 Diastolic blood pressure 61 mm[Hg] Dr. Donna Will MD Work Phone: [facility] 06-30-2024 10:14-0400 Heart rate 73 /min Dr. Donna Will MD Work Phone: [facility] 06-30-2024 10:14-0400 Inhaled oxygen flow rate 4 L/min Dr. Donna Will MD Work Phone: [facility] 06-30-2024 10:14-0400 Respiratory rate 16 /min Dr. Donna Will MD Work Phone: [facility] 06-30-2024 10:14-0400 SaO2% (BldA) [Mass fraction] 92 % Dr. Donna Will MD Work Phone: [facility] 06-30-2024 10:14-0400 Systolic blood pressure 123 mm[Hg] Dr. Donna Will MD Work Phone: [facility] 06-25-2024 12:27-0400 Body temperature 97.9 [degF] Dr. Donna Will MD Work Phone: [facility] 06-25-2024 12:27-0400 Diastolic blood pressure 72 mm[Hg] Dr. Donna Will MD Work Phone: [facility] 06-25-2024 12:27-0400 Heart rate 98 /min Dr. Donna Will MD Work Phone: [facility] 06-25-2024 12:27-0400 Inhaled oxygen flow rate 3 L/min Dr. Donna Will MD Work Phone: [facility] 06-25-2024 12:27-0400 Respiratory rate 18 /min Dr. Donna Will MD Work Phone: [facility] 06-25-2024 12:27-0400 SaO2% (BldA) [Mass fraction] 91 % Dr. Donna Will MD Work Phone: [facility] 06-25-2024 12:27-0400 Systolic blood pressure 118 mm[Hg] Dr. Donna Will MD Work Phone: [facility] 06-25-2024 07:04-0400 Inhaled oxygen concentration 30 % Dr. Donna Will MD Work Phone: [facility] 06-25-2024 03:41-0400 Body mass index (BMI) [Ratio] 30.3 kg/m2 Dr. Donna Will MD Work Phone: [facility] 06-25-2024 03:41-0400 Body weight 98.[address] Donna Will MD Work Phone: [facility] 06-21-2024 09:20-0400 Body height 180.[address] Donna Will MD Work Phone: [facility] 05-27-2024 15:19-0400 Body temperature 98.4 [degF] Dr. Donna Will MD Work Phone: [facility] 05-27-2024 15:19-0400 Diastolic blood pressure 64 mm[Hg] Dr. Donna Will MD Work Phone: [facility] 05-27-2024 15:19-0400 Heart rate 61 /min Dr. Donna Will MD Work Phone: [facility] 05-27-2024 15:19-0400 Respiratory rate 18 /min Dr. Donna Will MD Work Phone: [facility] 05-27-2024 15:19-0400 SaO2% (BldA) [Mass fraction] 100 % Dr. Donna Will MD Work Phone: [facility] 05-27-2024 15:19-0400 Systolic blood pressure 120 mm[Hg] Dr. Donna Will MD Work Phone: [facility] 05-20-2024 12:45-0400 Body mass index (BMI) [Ratio] 28.8 kg/m2 Dr. Donna Will MD Work Phone: [facility] 05-20-2024 12:45-0400 Body weight 93.[address] Donna Will MD Work Phone: [facility] 05-20-2024 12:45-0400 Inhaled oxygen flow rate 5 L/min Dr. Donna Will MD Work Phone: [facility] 05-18-2024 13:09-0400 Body mass index (BMI) [Ratio] 28.7 kg/m2 Dr. Donna Will MD Work Phone: [facility] 05-18-2024 13:09-0400 Body temperature 97.4 [degF] Dr. Donna Will MD Work Phone: [facility] 05-18-2024 13:09-0400 Body weight 93.[address] Donna Will MD Work Phone: [facility] 05-18-2024 13:09-0400 Diastolic blood pressure 58 mm[Hg] Dr. Donna Will MD Work Phone: [facility] 05-18-2024 13:09-0400 Heart rate 44 /min Dr. Donna Will MD Work Phone: [facility] 05-18-2024 13:09-0400 Inhaled oxygen flow rate 4 L/min Dr. Donna Will MD Work Phone: [facility] 05-18-2024 13:09-0400 Respiratory rate 20 /min Dr. Donna Will MD Work Phone: [facility] 05-18-2024 13:09-0400 SaO2% (BldA) [Mass fraction] 94 % Dr. Donna Will MD Work Phone: [facility] 05-18-2024 13:09-0400 Systolic blood pressure 110 mm[Hg] Dr. Donna Will MD Work Phone: [facility] 04-27-2024 13:52-0500 Body mass index (BMI) [Ratio] 30.7 kg/m2 Dr. Donna Will MD Work Phone: [facility] 04-27-2024 13:52-0500 Body temperature 97.6 [degF] Dr. Donna Will MD Work Phone: [facility] 04-27-2024 13:52-0500 Body weight 99.[address] Donna Will MD Work Phone: [facility] 04-27-2024 13:52-0500 Diastolic blood pressure 68 mm[Hg] Dr. Donna Will MD Work Phone: [facility] 04-27-2024 13:52-0500 Heart rate 77 /min Dr. Donna Will MD Work Phone: [facility] 04-27-2024 13:52-0500 Inhaled oxygen flow rate 4 L/min Dr. Donna Will MD Work Phone: [facility] 04-27-2024 13:52-0500 Respiratory rate 18 /min Dr. Donna Will MD Work Phone: [facility] 04-27-2024 13:52-0500 SaO2% (BldA) [Mass fraction] 92 % Dr. Donna Will MD Work Phone: [facility] 04-27-2024 13:52-0500 Systolic blood pressure 121 mm[Hg] Dr. Donna Will MD Work Phone: [facility] 04-08-2024 10:46-0500 Heart rate 71 /min Dr. Donna Will MD Work Phone: [facility] 04-08-2024 10:46-0500 Respiratory rate 18 /min Dr. Donna Will MD Work Phone: [facility] 04-08-2024 07:59-0500 Body temperature 97.8 [degF] Dr. Donna Will MD Work Phone: [facility] 04-08-2024 07:59-0500 Diastolic blood pressure 79 mm[Hg] Dr. Donna Will MD Work Phone: [facility] 04-08-2024 07:59-0500 Inhaled oxygen flow rate 4 L/min Dr. Donna Will MD Work Phone: [facility] 04-08-2024 07:59-0500 SaO2% (BldA) [Mass fraction] 98 % Dr. Donna Will MD Work Phone: [facility] 04-08-2024 07:59-0500 Systolic blood pressure 132 mm[Hg] Dr. Donna Will MD Work Phone: [facility] 04-08-2024 05:23-0500 Body mass index (BMI) [Ratio] 30.4 kg/m2 Dr. Donna Will MD Work Phone: [facility] 04-08-2024 05:23-0500 Body weight 99.[address] Donna Will MD Work Phone: [facility] 03-16-2024 11:38-0500 Body mass index (BMI) [Ratio] 28.8 kg/m2 Dr. Donna Will MD Work Phone: [facility] 03-16-2024 11:38-0500 Body weight 98.[address] Donna Will MD Work Phone: [facility] 03-16-2024 11:38-0500 Diastolic blood pressure 59 mm[Hg] Dr. Donna Will MD Work Phone: [facility] 03-16-2024 11:38-0500 Heart rate 76 /min Dr. Donna Will MD Work Phone: [facility] 03-16-2024 11:38-0500 Inhaled oxygen flow rate 4 L/min Dr. Donna Will MD Work Phone: [phone] [place] [address] 03-16-2024 11:38-0500 Respiratory rate 18 /min Dr. Donna Will MD Work Phone: [facility] 03-16-2024 11:38-0500 SaO2% (BldA) [Mass fraction] 85 % Dr. Donna Will MD Work Phone: [facility] 03-16-2024 11:38-0500 Systolic blood pressure 101 mm[Hg] Dr. Donna Will MD Work Phone: [facility] 03-05-2024 12:25-0500 Body mass index (BMI) [Ratio] 28.8 kg/m2 Dr. Donna Will MD Work Phone: [facility] 03-05-2024 12:25-0500 Body temperature 97.4 [degF] Dr. Donna Will MD Work Phone: [facility] 03-05-2024 12:25-0500 Body weight 98.[address] Donna Will MD Work Phone: [facility] 03-05-2024 12:25-0500 Diastolic blood pressure 64 mm[Hg] Dr. Donna Will MD Work Phone: [facility] 03-05-2024 12:25-0500 Heart rate 84 /min Dr. Donna Will MD Work Phone: [facility] 03-05-2024 12:25-0500 Inhaled oxygen flow rate 4 L/min Dr. Donna Will MD Work Phone: [facility] 03-05-2024 12:25-0500 Respiratory rate 28 /min Dr. Donna Will MD Work Phone: [facility] 03-05-2024 12:25-0500 SaO2% (BldA) [Mass fraction] 90 % Dr. Donna Will MD Work Phone: [facility] 03-05-2024 12:25-0500 Systolic blood pressure 103 mm[Hg] Dr. Donna Will MD Work Phone: [facility] 03-03-2024 11:13-0500 Inhaled oxygen flow rate 4 L/min Dr. Donna Will MD Work Phone: [facility] 03-03-2024 11:13-0500 SaO2% (BldA) [Mass fraction] 92 % Dr. Donna Will MD Work Phone: [facility] 03-03-2024 10:02-0500 Body mass index (BMI) [Ratio] 28.8 kg/m2 Dr. Donna Will MD Work Phone: [facility] 03-03-2024 10:02-0500 Body temperature 98.2 [degF] Dr. Donna Will MD Work Phone: [facility] 03-03-2024 10:02-0500 Body weight 98.[address] Donna Will MD Work Phone: [facility] 03-03-2024 10:02-0500 Diastolic blood pressure 68 mm[Hg] Dr. Donna Will MD Work Phone: [facility] 03-03-2024 10:02-0500 Heart rate 83 /min Dr. Donna Will MD Work Phone: [facility] 03-03-2024 10:02-0500 Respiratory rate 20 /min Dr. Donna Will MD Work Phone: [facility] 03-03-2024 10:02-0500 Systolic blood pressure 117 mm[Hg] Dr. Donna Will MD Work Phone: [facility] 06-05-2023 10:30-0400 Diastolic blood pressure 58 mm[Hg] Dr. Donna Will Work Phone: [facility] 06-05-2023 10:30-0400 Heart rate 69 /min Dr. Donna Will Work Phone: [facility] 06-05-2023 10:30-0400 Inhaled oxygen flow rate 5 L/min Dr. Donna Will Work Phone: [facility] 06-05-2023 10:30-0400 Respiratory rate 18 /min Dr. Donna Will Work Phone: [facility] 06-05-2023 10:30-0400 SaO2% (BldA) [Mass fraction] 94 % Dr. Donna Will Work Phone: [facility] 06-05-2023 10:30-0400 Systolic blood pressure 128 mm[Hg] Dr. Donna Will Work Phone: [facility] 06-05-2023 08:45-0400 Body height 180.[address] Donna Will Work Phone: [facility] 06-05-2023 08:45-0400 Body mass index (BMI) [Ratio] 33.3 kg/m2 Dr. Donna Will Work Phone: [facility] 06-05-2023 08:45-0400 Body temperature 96.5 [degF] Dr. Donna Will Work Phone: [facility] 06-05-2023 08:45-0400 Body weight 108.[address] Donna Will Work Phone: [facility] 05-28-2023 10:58-0400 Body mass index (BMI) [Ratio] 33.4 kg/m2 Dr. Donna Will Work Phone: [facility] 05-28-2023 10:58-0400 Body temperature 97.6 [degF] Dr. Donna Will Work Phone: [facility] 05-28-2023 10:58-0400 Body weight 108.[address] Donna Will Work Phone: [facility] 05-28-2023 10:58-0400 Diastolic blood pressure 64 mm[Hg] Dr. Donna Will Work Phone: [facility] 05-28-2023 10:58-0400 Heart rate 81 /min Dr. Donna Will Work Phone: [facility] 05-28-2023 10:58-0400 Inhaled oxygen flow rate 2 L/min Dr. Donna Will Work Phone: [facility] 05-28-2023 10:58-0400 Respiratory rate 18 /min Dr. Donna Will Work Phone: [facility] 05-28-2023 10:58-0400 SaO2% (BldA) [Mass fraction] 90 % Dr. Donna Will Work Phone: [facility] 05-28-2023 10:58-0400 Systolic blood pressure 111 mm[Hg] Dr. Donna Will Work Phone: [facility] 05-12-2023 10:29-0400 Body height 180.[address] Donna Will Work Phone: [facility] 05-12-2023 10:29-0400 Body mass index (BMI) [Ratio] 33.2 kg/m2 Dr. Donna Will Work Phone: [facility] 05-12-2023 10:29-0400 Body weight 107.[address] Donna Will Work Phone: [facility] 05-12-2023 10:29-0400 Diastolic blood pressure 73 mm[Hg] Dr. Donna Will Work Phone: [facility] 05-12-2023 10:29-0400 Heart rate 83 /min Dr. Donna Will Work Phone: [facility] 05-12-2023 10:29-0400 Inhaled oxygen flow rate 4 L/min Dr. Donna Will Work Phone: [facility] 05-12-2023 10:29-0400 Respiratory rate 20 /min Dr. Donna Will Work Phone: [facility] 05-12-2023 10:29-0400 SaO2% (BldA) [Mass fraction] 94 % Dr. Donna Will Work Phone: [facility] 05-12-2023 10:29-0400 Systolic blood pressure 118 mm[Hg] Dr. Donna Will Work Phone: [facility] 05-09-2023 14:09-0400 Body temperature 97.2 [degF] Dr. Donna Will Work Phone: [facility] 05-09-2023 14:09-0400 Diastolic blood pressure 75 mm[Hg] Dr. Donna Will Work Phone: [facility] 05-09-2023 14:09-0400 Heart rate 80 /min Dr. Donna Will Work Phone: [facility] 05-09-2023 14:09-0400 Inhaled oxygen flow rate 4 L/min Dr. Donna Will Work Phone: [facility] 05-09-2023 14:09-0400 Respiratory rate 16 /min Dr. Donna Will Work Phone: [facility] 05-09-2023 14:09-0400 SaO2% (BldA) [Mass fraction] 98 % Dr. Donna Will Work Phone: [facility] 05-09-2023 14:09-0400 Systolic blood pressure 132 mm[Hg] Dr. Donna Will Work Phone: [facility] 05-09-2023 09:04-0400 Body mass index (BMI) [Ratio] 32.9 kg/m2 Dr. Donna Will Work Phone: [facility] 05-09-2023 09:04-0400 Body weight 107.[address] Donna Will Work Phone: [facility] 05-07-2023 11:10-0400 Body mass index (BMI) [Ratio] 32.8 kg/m2 Dr. Donna Will Work Phone: [facility] 05-07-2023 11:10-0400 Body temperature 98.3 [degF] Dr. Donna Will Work Phone: [facility] 05-07-2023 11:10-0400 Body weight 106.[address] Donna Will Work Phone: [facility] 05-07-2023 11:10-0400 Diastolic blood pressure 71 mm[Hg] Dr. Donna Will Work Phone: [facility] 05-07-2023 11:10-0400 Heart rate 83 /min Dr. Donna Will Work Phone: [facility] 05-07-2023 11:10-0400 Inhaled oxygen flow rate 2 L/min Dr. Donna Will Work Phone: [facility] 05-07-2023 11:10-0400 Respiratory rate 18 /min Dr. Donna Will Work Phone: [facility] 05-07-2023 11:10-0400 SaO2% (BldA) [Mass fraction] 91 % Dr. Donna Will Work Phone: [facility] 05-07-2023 11:10-0400 Systolic blood pressure 117 mm[Hg] Dr. Donna Will Work Phone: [facility] 03-27-2023 11:35-0500 Body temperature 97.5 [degF] Dr. Donna Will Work Phone: [facility] 03-27-2023 11:35-0500 Diastolic blood pressure 60 mm[Hg] Dr. Donna Will Work Phone: [facility] 03-27-2023 11:35-0500 Heart rate 76 /min Dr. Donna Will Work Phone: [facility] 03-27-2023 11:35-0500 Inhaled oxygen flow rate 2 L/min Dr. Donna Will Work Phone: [facility] 03-27-2023 11:35-0500 Respiratory rate 18 /min Dr. Donna Will Work Phone: [facility] 03-27-2023 11:35-0500 SaO2% (BldA) [Mass fraction] 90 % Dr. Donna Will Work Phone: [facility] 03-27-2023 11:35-0500 Systolic blood pressure 110 mm[Hg] Dr. Donna Will Work Phone: [facility] 03-21-2023 14:21-0500 Inhaled oxygen flow rate 4 L/min Dr. Donna Will Work Phone: [facility] 03-21-2023 14:00-0500 Body temperature 98 [degF] Dr. Donna Will Work Phone: [facility] 03-21-2023 14:00-0500 Diastolic blood pressure 65 mm[Hg] Dr. Donna Will Work Phone: [facility] 03-21-2023 14:00-0500 Heart rate 82 /min Dr. Donna Will Work Phone: [facility] 03-21-2023 14:00-0500 Respiratory rate 18 /min Dr. Donna Will Work Phone: [facility] 03-21-2023 14:00-0500 SaO2% (BldA) [Mass fraction] 100 % Dr. Donna Will Work Phone: [facility] 03-21-2023 14:00-0500 Systolic blood pressure 103 mm[Hg] Dr. Donna Will Work Phone: [facility] 03-21-2023 08:48-0500 Body mass index (BMI) [Ratio] 28.8 kg/m2 Dr. Donna Will Work Phone: [facility] 03-21-2023 08:48-0500 Body weight 93.[address] Donna Will Work Phone: [facility] 03-18-2023 09:15-0500 Body height 180.[address] Donna Will Work Phone: [facility] 03-16-2023 17:37-0500 Body temperature 96.4 [degF] Dr. Donna Will Work Phone: [facility] 03-16-2023 17:37-0500 Diastolic blood pressure 51 mm[Hg] Dr. Donna Will Work Phone: [facility] 03-16-2023 17:37-0500 Heart rate 68 /min Dr. Donna Will Work Phone: [facility] 03-16-2023 17:37-0500 Inhaled oxygen flow rate 4 L/min Dr. Donna Will Work Phone: [facility] 03-16-2023 17:37-0500 Respiratory rate 22 /min Dr. Donna Will Work Phone: [facility] 03-16-2023 17:37-0500 SaO2% (BldA) [Mass fraction] 100 % Dr. Donna Will Work Phone: [facility] 03-16-2023 17:37-0500 Systolic blood pressure 122 mm[Hg] Dr. Donna Will Work Phone: [facility] 03-16-2023 17:33-0500 Body height 180.[address] Donna iWll Work Phone: [facility] 03-16-2023 17:33-0500 Body mass index (BMI) [Ratio] 29.2 kg/m2 Dr. Donna Will Work Phone: [facility] 03-16-2023 17:33-0500 Body weight 95.[address] Donna Will Work Phone: [facility] 03-06-2023 14:12-0500 Heart rate 99 /min Dr. Donna Will Work Phone: [facility] 03-06-2023 14:12-0500 Respiratory rate 18 /min Dr. Donna Will Work Phone: [facility] 03-06-2023 11:52-0500 Body temperature 97.8 [degF] Dr. Donna Will Work Phone: [facility] 03-06-2023 11:52-0500 Diastolic blood pressure 56 mm[Hg] Dr. Donna Will Work Phone: [facility] 03-06-2023 11:52-0500 Inhaled oxygen flow rate 3 L/min Dr. Donna Will Work Phone: [facility] 03-06-2023 11:52-0500 SaO2% (BldA) [Mass fraction] 94 % Dr. Donna Will Work Phone: [facility] 03-06-2023 11:52-0500 Systolic blood pressure 94 mm[Hg] Dr. Donna Will Work Phone: [facility] 03-06-2023 04:59-0500 Body mass index (BMI) [Ratio] 33.5 kg/m2 Dr. Donna Will Work Phone: [facility] 03-06-2023 04:59-0500 Body weight [address] Donna Will Work Phone: [facility] 03-05-2023 15:41-0500 Body height 180.[address] Donna Will Work Phone: [facility] 02-28-2023 16:15-0500 Diastolic blood pressure 71 mm[Hg] Dr. Donna Will Work Phone: [facility] 02-28-2023 16:15-0500 Heart rate 95 /min Dr. Donna Will Work Phone: [facility] 02-28-2023 16:15-0500 Respiratory rate 31 /min Dr. Donna Will Work Phone: [facility] 02-28-2023 16:15-0500 SaO2% (BldA) [Mass fraction] 90 % Dr. Donna Will Work Phone: [facility] 02-28-2023 16:15-0500 Systolic blood pressure 121 mm[Hg] Dr. Donna Will Work Phone: [facility] 02-28-2023 15:30-0500 Inhaled oxygen flow rate 4 L/min Dr. Donna Will Work Phone: [facility] 02-28-2023 15:00-0500 Body temperature 97.4 [degF] Dr. Donna Will Work Phone: [facility] 02-28-2023 11:08-0500 Body height 180.[address] Donna Will Work Phone: [facility] 02-06-2023 11:14-0500 Body temperature 98.1 [degF] Dr. Donna Will Work Phone: [facility] 02-06-2023 11:14-0500 Diastolic blood pressure 50 mm[Hg] Dr. Donna Will Work Phone: [facility] 02-06-2023 11:14-0500 Heart rate 81 /min Dr. Donna Will Work Phone: [facility] 02-06-2023 11:14-0500 Respiratory rate 16 /min Dr. Donna Will Work Phone: [facility] 02-06-2023 11:14-0500 SaO2% (BldA) [Mass fraction] 100 % Dr. Donna Will Work Phone: [facility] 02-06-2023 11:14-0500 Systolic blood pressure 112 mm[Hg] Dr. Donna Will Work Phone: [facility] 02-06-2023 10:30-0500 Body mass index (BMI) [Ratio] 30.9 kg/m2 Dr. Donna Will Work Phone: [facility] 02-06-2023 10:30-0500 Body weight 100.[address] Donna Will Work Phone: [facility] 02-06-2023 10:30-0500 Inhaled oxygen flow rate 4 L/min Dr. Donna Will Work Phone: [facility] 01-30-2023 11:30-0500 Body temperature 97.7 [degF] Dr. Donna Will Work Phone: [facility] 01-30-2023 11:30-0500 Diastolic blood pressure 49 mm[Hg] Dr. Donna Will Work Phone: [facility] 01-30-2023 11:30-0500 Heart rate 77 /min Dr. Donna Will Work Phone: [facility] 01-30-2023 11:30-0500 Respiratory rate 18 /min Dr. Donna Will Work Phone: [facility] 01-30-2023 11:30-0500 Systolic blood pressure 103 mm[Hg] Dr. Donna Will Work Phone: [facility] 01-30-2023 10:03-0500 Body height 180.[address] Donna Will Work Phone: [facility] 01-30-2023 10:03-0500 Body mass index (BMI) [Ratio] 30.9 kg/m2 Dr. Donna Will Work Phone: [facility] 01-30-2023 10:03-0500 Body weight 100.[address] Donna Will Work Phone: [facility] 01-30-2023 10:03-0500 Inhaled oxygen flow rate 4 L/min Dr. Donna Will Work Phone: [facility] 01-30-2023 10:03-0500 SaO2% (BldA) [Mass fraction] 96 % Dr. Donna Will Work Phone: [facility] 01-28-2023 07:43-0500 Body mass index (BMI) [Ratio] 30.4 kg/m2 Dr. Donna Will Work Phone: [facility] 01-28-2023 07:43-0500 Body temperature 96.9 [degF] Dr. Donna Will Work Phone: [facility] 01-28-2023 07:43-0500 Body weight 98.[address] Donna Will Work Phone: [facility] 01-28-2023 07:43-0500 Diastolic blood pressure 51 mm[Hg] Dr. Donna Will Work Phone: [facility] 01-28-2023 07:43-0500 Heart rate 88 /min Dr. Donna Will Work Phone: [facility] 01-28-2023 07:43-0500 Inhaled oxygen flow rate 3 L/min Dr. Donna Will Work Phone: [facility] 01-28-2023 07:43-0500 Respiratory rate 24 /min Dr. Donna Will Work Phone: [facility] 01-28-2023 07:43-0500 SaO2% (BldA) [Mass fraction] 93 % Dr. Donna Will Work Phone: [facility] 01-28-2023 07:43-0500 Systolic blood pressure 99 mm[Hg] Dr. Donna Will Work Phone: [facility] 01-21-2023 13:48-0500 Body mass index (BMI) [Ratio] 31.8 kg/m2 Dr. Donna Will Work Phone: [facility] 01-21-2023 13:48-0500 Body temperature 97.2 [degF] Dr. Donna Will Work Phone: [facility] 01-21-2023 13:48-0500 Body weight 103.[address] Donna Will Work Phone: [facility] 01-21-2023 13:48-0500 Diastolic blood pressure 57 mm[Hg] Dr. Donna Will Work Phone: [facility] 01-21-2023 13:48-0500 Heart rate 81 /min Dr. Donna Will Work Phone: [facility] 01-21-2023 13:48-0500 Respiratory rate 18 /min Dr. Donna Will Work Phone: [facility] 01-21-2023 13:48-0500 SaO2% (BldA) [Mass fraction] 92 % Dr. Donna Will Work Phone: [facility] 01-21-2023 13:48-0500 Systolic blood pressure 95 mm[Hg] Dr. Donna Will Work Phone: [facility] 11-26-2022 14:52-0400 Body mass index (BMI) [Ratio] 31.8 kg/m2 Dr. Donna Will Work Phone: [facility] 11-26-2022 14:52-0400 Body temperature 98.3 [degF] Dr. Donna Will Work Phone: [facility] 11-26-2022 14:52-0400 Body weight 103.[address] Donna Will Work Phone: [facility] 11-26-2022 14:52-0400 Diastolic blood pressure 64 mm[Hg] Dr. Donna Will Work Phone: [facility] 11-26-2022 14:52-0400 Heart rate 76 /min Dr. Donna Will Work Phone: [facility] 11-26-2022 14:52-0400 Inhaled oxygen flow rate 3 L/min Dr. Donna Will Work Phone: [facility] 11-26-2022 14:52-0400 Respiratory rate 18 /min Dr. Donna Will Work Phone: [facility] 11-26-2022 14:52-0400 SaO2% (BldA) [Mass fraction] 92 % Dr. Donna Will Work Phone: [facility] 11-26-2022 14:52-0400 Systolic blood pressure 119 mm[Hg] Dr. Donna Will Work Phone: [facility] 11-21-2022 15:15-0400 Body mass index (BMI) [Ratio] 32.2 kg/m2 Dr. Donna Will Work Phone: [facility] 11-21-2022 15:15-0400 Body temperature 97.4 [degF] Dr. Donna Will Work Phone: [facility] 11-21-2022 15:15-0400 Body weight 104.[address] Donna Will Work Phone: [facility] 11-21-2022 15:15-0400 Diastolic blood pressure 51 mm[Hg] Dr. Donna Will Work Phone: [facility] 11-21-2022 15:15-0400 Heart rate 92 /min Dr. Donna Will Work Phone: [facility] 11-21-2022 15:15-0400 Inhaled oxygen flow rate 3 L/min Dr. Donna Will Work Phone: [facility] 11-21-2022 15:15-0400 Respiratory rate 16 /min Dr. Donna Will Work Phone: [facility] 11-21-2022 15:15-0400 SaO2% (BldA) [Mass fraction] 91 % Dr. Donna Will Work Phone: [facility] 11-21-2022 15:15-0400 Systolic blood pressure 106 mm[Hg] Dr. Donna Will Work Phone: [facility] 11-17-2022 12:19-0400 Body temperature 98.1 [degF] [employer] [facility] [facility] Work Phone: [facility] 11-17-2022 12:19-0400 Diastolic blood pressure 58 mm[Hg] [employer] Work Phone: [facility] 11-17-2022 12:19-0400 Heart rate 68 /min [employer] Work Phone: [facility] 11-17-2022 12:19-0400 Inhaled oxygen flow rate 4 L/min [employer] Work Phone: [facility] 11-17-2022 12:19-0400 Respiratory rate 16 /min [employer] Work Phone: [facility] 11-17-2022 12:19-0400 SaO2% (BldA) [Mass fraction] 94 % [employer] Work Phone: [facility] 11-17-2022 12:19-0400 Systolic blood pressure 122 mm[Hg] [employer] Work Phone: [facility] 11-17-2022 04:44-0400 Body mass index (BMI) [Ratio] 34 kg/m2 [employer] Work Phone: [facility] 11-17-2022 04:44-0400 Body weight 110.5 kg [employer] Work Phone: [facility] 11-16-2022 12:21-0400 Body height 180.34 cm [employer] Work Phone: [facility] 11-15-2022 19:22-0400 Body temperature 98.5 [degF] [employer] Work Phone: [facility] 11-15-2022 19:22-0400 Diastolic blood pressure 74 mm[Hg] [employer] Work Phone: [facility] 11-15-2022 19:22-0400 Heart rate 78 /min [employer] Work Phone: [facility] 11-15-2022 19:22-0400 Inhaled oxygen flow rate 4 L/min [employer] Work Phone: [facility] 11-15-2022 19:22-0400 Respiratory rate 25 /min [employer] Work Phone: [facility] 11-15-2022 19:22-0400 SaO2% (BldA) [Mass fraction] 96 % [employer] Work Phone: [facility] 11-15-2022 19:22-0400 Systolic blood pressure 122 mm[Hg] [employer] Work Phone: [facility] 11-15-2022 14:30-0400 Body height 180.34 cm [employer] Work Phone: [facility] 11-15-2022 14:30-0400 Body mass index (BMI) [Ratio] 16 kg/m2 [employer] Work Phone: [facility] 11-15-2022 14:30-0400 Body weight 52.16 kg [employer] Work Phone: [facility] 11-08-2022 15:07-0400 Diastolic blood pressure 66 mm[Hg] [employer] Work Phone: [facility] 11-08-2022 15:07-0400 Heart rate 89 /min [employer] Work Phone: [facility] 11-08-2022 15:07-0400 Respiratory rate 16 /min [employer] Work Phone: [facility] 11-08-2022 15:07-0400 SaO2% (BldA) [Mass fraction] 96 % [employer] Work Phone: [facility] 11-08-2022 15:07-0400 Systolic blood pressure 139 mm[Hg] [employer] Work Phone: [facility] 11-08-2022 14:49-0400 Body temperature 97 [degF] [employer] Work Phone: [facility] 11-08-2022 14:49-0400 Inhaled oxygen flow rate 4 L/min [employer] Work Phone: [facility] 11-08-2022 13:12-0400 Body mass index (BMI) [Ratio] 33 kg/m2 [employer] Work Phone: [facility] 11-08-2022 13:12-0400 Body weight 107.55 kg [employer] Work Phone: [facility] 10-29-2022 13:39-0400 Body mass index (BMI) [Ratio] 33 kg/m2 [employer] Work Phone: [facility] 10-29-2022 13:39-0400 Body temperature 98.3 [degF] [employer] Work Phone: [facility] 10-29-2022 13:39-0400 Body weight 107.55 kg [employer] Work Phone: [facility] 10-29-2022 13:39-0400 Diastolic blood pressure 62 mm[Hg] [employer] Work Phone: [facility] 10-29-2022 13:39-0400 Heart rate 77 /min [employer] Work Phone: [facility] 10-29-2022 13:39-0400 Inhaled oxygen flow rate 4 L/min [employer] Work Phone: [facility] 10-29-2022 13:39-0400 Respiratory rate 18 /min [employer] Work Phone: [facility] 10-29-2022 13:39-0400 SaO2% (BldA) [Mass fraction] 93 % [employer] Work Phone: [facility] 10-29-2022 13:39-0400 Systolic blood pressure 124 mm[Hg] [employer] Work Phone: [facility] 09-30-2022 14:35-0400 Body mass index (BMI) [Ratio] 33.5 kg/m2 [employer] Work Phone: [facility] 09-30-2022 14:35-0400 Body temperature 96.5 [degF] [employer] Work Phone: [facility] 09-30-2022 14:35-0400 Body weight 108.89 kg [employer] Work Phone: [facility] 09-30-2022 14:35-0400 Diastolic blood pressure 56 mm[Hg] [employer] Work Phone: [facility] 09-30-2022 14:35-0400 Heart rate 92 /min [employer] Work Phone: [facility] 09-30-2022 14:35-0400 Inhaled oxygen flow rate 4 L/min [employer] Work Phone: [facility] 09-30-2022 14:35-0400 Respiratory rate 18 /min [employer] Work Phone: [facility] 09-30-2022 14:35-0400 SaO2% (BldA) [Mass fraction] 98 % [employer] Work Phone: [facility] 09-30-2022 14:35-0400 Systolic blood pressure 105 mm[Hg] [employer] Work Phone: [facility] 09-13-2022 11:37-0400 Body mass index (BMI) [Ratio] 33.3 kg/m2 [employer] Work Phone: [facility] 09-13-2022 11:37-0400 Body weight 108.4 kg [employer] Work Phone: [facility] 09-13-2022 11:37-0400 Diastolic blood pressure 71 mm[Hg] [employer] Work Phone: [facility] 09-13-2022 11:37-0400 Heart rate 74 /min [employer]AT[employer] Work Phone: [facility] 09-13-2022 11:37-0400 Inhaled oxygen flow rate 2 L/min [employer] Work Phone: [facility] 09-13-2022 11:37-0400 Respiratory rate 22 /min [employer] Work Phone: [facility] 09-13-2022 11:37-0400 SaO2% (BldA) [Mass fraction] 87 % [employer] Work Phone: [facility] 09-13-2022 11:37-0400 Systolic blood pressure 109 mm[Hg] [employer] Work Phone: [facility] 09-04-2022 13:18-0400 Body mass index (BMI) [Ratio] 33.2 kg/m2 [employer] Work Phone: [facility] 09-04-2022 13:18-0400 Body temperature 97.8 [degF] [employer] Work Phone: [facility] 09-04-2022 13:18-0400 Body weight 107.95 kg [employer] Work Phone: [facility] 09-04-2022 13:18-0400 Diastolic blood pressure 63 mm[Hg] [employer] Work Phone: [facility] 09-04-2022 13:18-0400 Heart rate 93 /min [employer] Work Phone: [facility] 09-04-2022 13:18-0400 Inhaled oxygen flow rate 2 L/min [employer] Work Phone: [facility] 09-04-2022 13:18-0400 Respiratory rate 18 /min [employer] Work Phone: [facility] 09-04-2022 13:18-0400 SaO2% (BldA) [Mass fraction] 93 % [employer] Work Phone: [facility] 09-04-2022 13:18-0400 Systolic blood pressure 112 mm[Hg] [employer] Work Phone: [facility] 08-29-2022 18:09-0400 Diastolic blood pressure 64 mm[Hg] [employer] Work Phone: [facility] 08-29-2022 18:09-0400 Systolic blood pressure 134 mm[Hg] [employer] Work Phone: [facility] 08-29-2022 17:30-0400 Body mass index (BMI) [Ratio] 32.6 kg/m2 [employer]AT[employer] Work Phone: [facility] 08-29-2022 17:30-0400 Body weight 106.14 kg [employer]ATORY INS[employer] Work Phone: [facility] 08-29-2022 17:30-0400 Heart rate 78 /min [employer]AT[employer] INS[employer] Work Phone: [facility] 08-29-2022 15:47-0400 Body height 180.34 cm [employer]AT[employer] INS[employer] Work Phone: [facility] 08-29-2022 15:47-0400 Body temperature 97 [degF] [employer]AT[employer] INS[employer] Work Phone: [facility] 08-29-2022 15:47-0400 Inhaled oxygen flow rate 1 L/min [employer]AT[employer] INS[employer] Work Phone: [facility] 08-29-2022 15:47-0400 Respiratory rate 19 /min [employer]AT[employer] INS[employer] Work Phone: [facility] 08-29-2022 15:47-0400 SaO2% (BldA) [Mass fraction] 90 % [employer] Work Phone: [facility] 08-14-2022 13:01-0400 Body mass index (BMI) [Ratio] 32.6 kg/m2 [employer] Work Phone: [facility] 08-14-2022 13:01-0400 Body temperature 98.4 [degF] [employer] Work Phone: [facility] 08-14-2022 13:01-0400 Body weight 106.25 kg [employer] Work Phone: [facility] 08-14-2022 13:01-0400 Diastolic blood pressure 59 mm[Hg] [employer] INS[employer] Work Phone: [facility] 08-14-2022 13:01-0400 Heart rate 86 /min [employer] Work Phone: [facility] 08-14-2022 13:01-0400 Inhaled oxygen flow rate 1 L/min [employer] Work Phone: [facility] 08-14-2022 13:01-0400 Respiratory rate 20 /min [employer] Work Phone: [facility] 08-14-2022 13:01-0400 SaO2% (BldA) [Mass fraction] 90 % [employer] Work Phone: [facility] 08-14-2022 13:01-0400 Systolic blood pressure 104 mm[Hg] [employer] Work Phone: [facility] 08-08-2022 13:55-0400 Body mass index (BMI) [Ratio] 32.7 kg/m2 [employer] Work Phone: [facility] 08-08-2022 13:55-0400 Body temperature 97.4 [degF] [employer] Work Phone: [facility] 08-08-2022 13:55-0400 Body weight 106.39 kg [employer]AT[employer] INS[employer] Work Phone: [facility] 08-08-2022 13:55-0400 Diastolic blood pressure 66 mm[Hg] [employer] Work Phone: [facility] 08-08-2022 13:55-0400 Heart rate 66 /min [employer] Work Phone: [facility] 08-08-2022 13:55-0400 Inhaled oxygen flow rate 1 L/min [employer] INS[employer] Work Phone: [facility] 08-08-2022 13:55-0400 Respiratory rate 16 /min [employer] Work Phone: [facility] 08-08-2022 13:55-0400 SaO2% (BldA) [Mass fraction] 91 % [employer] Work Phone: [facility] 08-08-2022 13:55-0400 Systolic blood pressure 110 mm[Hg] [employer] Work Phone: [facility] 07-23-2022 13:25-0400 Body mass index (BMI) [Ratio] 32.5 kg/m2 [employer] Work Phone: [facility] 07-23-2022 13:25-0400 Body temperature 97.7 [degF] [employer] INS[employer] Work Phone: [facility] 07-23-2022 13:25-0400 Body weight 105.94 kg [employer] Work Phone: [facility] 07-23-2022 13:25-0400 Diastolic blood pressure 72 mm[Hg] [employer] Work Phone: [facility] 07-23-2022 13:25-0400 Heart rate 78 /min [employer] Work Phone: [facility] 07-23-2022 13:25-0400 Inhaled oxygen flow rate 1.5 L/min [employer] INS[employer] Work Phone: [facility] 07-23-2022 13:25-0400 Respiratory rate 18 /min [employer] Work Phone: [facility] 07-23-2022 13:25-0400 SaO2% (BldA) [Mass fraction] 92 % [employer] Work Phone: [facility] 07-23-2022 13:25-0400 Systolic blood pressure 116 mm[Hg] [employer] Work Phone: [facility] 05-29-2022 07:55-0400 Body height 180.34 cm [employer]ATORY INS[employer] Work Phone: [facility] 05-29-2022 07:55-0400 Body mass index (BMI) [Ratio] 28.3 kg/m2 [employer] INS[employer] Work Phone: [facility] 05-29-2022 07:55-0400 Body temperature 97.5 [degF] [employer] Work Phone: [facility] 05-29-2022 07:55-0400 Body weight 92.07 kg [employer] Work Phone: [facility] 05-29-2022 07:55-0400 Diastolic blood pressure 65 mm[Hg] [employer] Work Phone: [facility] 05-29-2022 07:55-0400 Heart rate 67 /min [employer]AT[employer] Work Phone: [facility] 05-29-2022 07:55-0400 Inhaled oxygen flow rate 4.5 L/min [employer] Work Phone: [facility] 05-29-2022 07:55-0400 Respiratory rate 16 /min [employer] Work Phone: [facility] 05-29-2022 07:55-0400 SaO2% (BldA) [Mass fraction] 93 % [employer]AT[employer] Work Phone: [facility] 05-29-2022 07:55-0400 Systolic blood pressure 136 mm[Hg] [employer] Work Phone: [facility] 05-15-2022 12:30-0400 Body height 180.34 cm [employer]ATORY [employer] Work Phone: [facility] 05-15-2022 12:30-0400 Body weight 124.73 kg [employer]ATORY [employer] Work Phone: [facility] 05-15-2022 12:30-0400 Heart rate 87 /min [employer] Work Phone: [facility] 05-15-2022 12:30-0400 Inhaled oxygen flow rate 2 L/min [employer] Work Phone: [facility] 05-15-2022 12:30-0400 SaO2% (BldA) [Mass fraction] 82 % [employer] Work Phone: [facility] 05-13-2022 14:51-0400 Body temperature 97.4 [degF] [employer] Work Phone: [facility] 05-13-2022 14:51-0400 Diastolic blood pressure 44 mm[Hg] [employer] Work Phone: [facility] 05-13-2022 14:51-0400 Heart rate 80 /min [employer] Work Phone: [facility] 05-13-2022 14:51-0400 Respiratory rate 16 /min [employer] Work Phone: [facility] 05-13-2022 14:51-0400 SaO2% (BldA) [Mass fraction] 98 % [employer] Work Phone: [facility] 05-13-2022 14:51-0400 Systolic blood pressure 101 mm[Hg] [employer] Work Phone: [facility] 05-13-2022 13:57-0400 Body mass index (BMI) [Ratio] 28.4 kg/m2 [employer] Work Phone: [facility] 05-13-2022 13:57-0400 Body weight 92.53 kg [employer]ATORY INS[employer] Work Phone: [facility] 05-13-2022 13:57-0400 Inhaled oxygen flow rate 4 L/min [employer]AT[employer] INS[employer] Work Phone: [facility] 04-29-2022 10:49-0500 Body mass index (BMI) [Ratio] 28.5 kg/m2 [employer] Work Phone: [facility] 04-29-2022 10:49-0500 Body temperature 98.2 [degF] [employer] Work Phone: [facility] 04-29-2022 10:49-0500 Body weight 92.98 kg [employer]ATORY INS[employer] Work Phone: [facility] 04-29-2022 10:49-0500 Diastolic blood pressure 61 mm[Hg] [employer] Work Phone: [facility] 04-29-2022 10:49-0500 Heart rate 99 /min [employer]AT[employer] INS[employer] Work Phone: [facility] 04-29-2022 10:49-0500 Inhaled oxygen flow rate 93 L/min [employer]AT[employer] INS[employer] Work Phone: [facility] 04-29-2022 10:49-0500 Respiratory rate 18 /min [employer] Work Phone: [facility] 04-29-2022 10:49-0500 SaO2% (BldA) [Mass fraction] 93 % [employer] Work Phone: [facility] 04-29-2022 10:49-0500 Systolic blood pressure 110 mm[Hg] [employer] Work Phone: [facility] 02-27-2022 06:28-0500 Body height 180.34 cm [employer]AT[employer] Work Phone: [facility] 02-27-2022 06:28-0500 Body mass index (BMI) [Ratio] 27.4 kg/m2 [employer] Work Phone: [facility] 02-27-2022 06:28-0500 Body temperature 98.1 [degF] [employer] Work Phone: [facility] 02-27-2022 06:28-0500 Body weight 89.35 kg [employer]AT[employer] Work Phone: [facility] 02-27-2022 06:28-0500 Diastolic blood pressure 68 mm[Hg] [employer] Work Phone: [facility] 02-27-2022 06:28-0500 Heart rate 75 /min [employer] Work Phone: [facility] 02-27-2022 06:28-0500 Inhaled oxygen flow rate 2 L/min [employer] INS[employer] Work Phone: [facility] 02-27-2022 06:28-0500 Respiratory rate 20 /min [employer] Work Phone: [facility] 02-27-2022 06:28-0500 SaO2% (BldA) [Mass fraction] 77 % [employer] Work Phone: [facility] 02-27-2022 06:28-0500 Systolic blood pressure 131 mm[Hg] [employer] Work Phone: [facility] 02-16-2022 10:19-0500 Inhaled oxygen flow rate 3 L/min [employer]AT[employer] INS[employer] Work Phone: [facility] 02-16-2022 09:25-0500 Body temperature 98.6 [degF] [employer] Work Phone: [facility] 02-16-2022 09:25-0500 Diastolic blood pressure 67 mm[Hg] [employer] Work Phone: [facility] 02-16-2022 09:25-0500 Heart rate 83 /min [employer] Work Phone: [facility] 02-16-2022 09:25-0500 Respiratory rate 18 /min [employer] Work Phone: [facility] 02-16-2022 09:25-0500 SaO2% (BldA) [Mass fraction] 93 % [employer] Work Phone: [facility] 02-16-2022 09:25-0500 Systolic blood pressure 121 mm[Hg] [employer] Work Phone: [facility] 02-15-2022 11:05-0500 Inhaled oxygen concentration 45 % [employer] Work Phone: [facility] 02-14-2022 22:30-0500 Body height 180.34 cm [employer]ATORY [employer] Work Phone: [facility] Work Phone: 02-14-2022 22:30-0500 Body mass index (BMI) [Ratio] 26.9 kg/m2 [employer] Work Phone: [facility] 02-14-2022 22:30-0500 Body weight 87.4 kg [employer]AT[employer] Work Phone: [facility] 02-14-2022 21:03-0500 Body temperature 98.9 [degF] [employer] Work Phone: [facility] Work Phone: 02-14-2022 21:03-0500 Diastolic blood pressure 59 mm[Hg] [employer] Work Phone: [facility] Work Phone: 02-14-2022 21:03-0500 Heart rate 64 /min [employer] Work Phone: [facility] Work Phone: 02-14-2022 21:03-0500 Inhaled oxygen flow rate 4 L/min [employer] Work Phone: [facility] Work Phone: 02-14-2022 21:03-0500 Respiratory rate 16 /min [employer] Work Phone: [facility] Work Phone: 02-14-2022 21:03-0500 SaO2% (BldA) [Mass fraction] 94 % [employer] Work Phone: [facility] Work Phone: 02-14-2022 21:03-0500 Systolic blood pressure 117 mm[Hg] [employer] Work Phone: [facility] Work Phone: 02-14-2022 16:26-0500 Body height 180.34 cm [employer]ATORY INS[employer] Work Phone: [facility] Work Phone: 02-14-2022 16:26-0500 Body mass index (BMI) [Ratio] 27.7 kg/m2 [employer] Work Phone: [facility] Work Phone: 02-14-2022 16:26-0500 Body weight 90.2 kg [employer] Work Phone: [facility] Work Phone: 02-05-2022 11:33-0500 Body mass index (BMI) [Ratio] 27.8 kg/m2 [employer] Work Phone: [facility] 02-05-2022 11:33-0500 Body temperature 98.1 [degF] [employer] Work Phone: [facility] 02-05-2022 11:33-0500 Body weight 90.77 kg [employer] Work Phone: [facility] 02-05-2022 11:33-0500 Diastolic blood pressure 69 mm[Hg] [employer] Work Phone: [facility] 02-05-2022 11:33-0500 Heart rate 75 /min [employer] Work Phone: [facility] 02-05-2022 11:33-0500 Respiratory rate 17 /min [employer] Work Phone: [facility] 02-05-2022 11:33-0500 SaO2% (BldA) [Mass fraction] 92 % [employer] Work Phone: [facility] 02-05-2022 11:33-0500 Systolic blood pressure 124 mm[Hg] [employer] Work Phone: [facility] 01-28-2022 12:17-0500 Body temperature 97.6 [degF] [employer] Work Phone: [facility] 01-28-2022 12:17-0500 Diastolic blood pressure 61 mm[Hg] [employer] Work Phone: [facility] 01-28-2022 12:17-0500 Heart rate 57 /min [employer] Work Phone: [facility] 01-28-2022 12:17-0500 Inhaled oxygen flow rate 4 L/min [employer] Work Phone: [facility] 01-28-2022 12:17-0500 Respiratory rate 16 /min [employer] Work Phone: [facility] 01-28-2022 12:17-0500 SaO2% (BldA) [Mass fraction] 97 % [employer] Work Phone: [facility] 01-28-2022 12:17-0500 Systolic blood pressure 126 mm[Hg] 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 Donna Will Work Phone: [facility] Work Phone: 01-14-2022 12:20-0500 Diastolic blood pressure 67 mm[Hg] Dr. Donna Will Work Phone: [facility] Work Phone: 01-14-2022 12:20-0500 Heart rate 80 /min Dr. Donna Will Work Phone: [facility] Work Phone: 01-14-2022 12:20-0500 Respiratory rate 16 /min Dr. Donna Will Work Phone: [facility] Work Phone: 01-14-2022 12:20-0500 SaO2% (BldA) [Mass fraction] 96 % Dr. Donna Will Work Phone: [facility] Work Phone: 01-14-2022 12:20-0500 Systolic blood pressure 140 mm[Hg] Dr. Donna Will Work Phone: [facility] Work Phone: 01-14-2022 10:11-0500 Body height 180.[address] Donna Will Work Phone: [facility] Work Phone: 01-14-2022 10:11-0500 Inhaled oxygen flow rate 4 L/min Dr. Donna Will Work Phone: [facility] Work Phone: 01-07-2022 10:48-0500 Body mass index (BMI) [Ratio] 25.9 kg/m2 Dr. Donna Will Work Phone: [facility] Work Phone: 01-07-2022 10:48-0500 Body weight 84.[address] Donna Will Work Phone: [facility] Work Phone: 12-26-2021 14:21-0400 Body height 180.[address] Donna Will Work Phone: [facility] Work Phone: 12-26-2021 14:13-0400 Body mass index (BMI) [Ratio] 25.9 kg/m2 Dr. Donna Will Work Phone: [facility] 12-26-2021 14:13-0400 Body temperature 98.6 [degF] Dr. Donna Will Work Phone: [facility] 12-26-2021 14:13-0400 Body weight 84.[address] Donna Will Work Phone: [facility] 12-26-2021 14:13-0400 Diastolic blood pressure 65 mm[Hg] Dr. Donna Will Work Phone: [facility] 12-26-2021 14:13-0400 Heart rate 77 /min Dr. Donna Will Work Phone: [facility] 12-26-2021 14:13-0400 Respiratory rate 17 /min Dr. Donna Will Work Phone: [facility] 12-26-2021 14:13-0400 SaO2% (BldA) [Mass fraction] 89 % Dr. Donna Will Work Phone: [facility] 12-26-2021 14:13-0400 Systolic blood pressure 131 mm[Hg] Dr. Donna Will Work Phone: [facility] 12-11-2021 14:07-0400 Body temperature 98 [degF] Dr. Donna Will Work Phone: [facility] 12-11-2021 14:07-0400 Diastolic blood pressure 63 mm[Hg] Dr. Donna Will Work Phone: [facility] 12-11-2021 14:07-0400 Heart rate 72 /min Dr. Donna Will Work Phone: [facility] 12-11-2021 14:07-0400 Inhaled oxygen flow rate 2 L/min Dr. Donna Will Work Phone: [facility] 12-11-2021 14:07-0400 Respiratory rate 18 /min Dr. Donna Will Work Phone: [facility] 12-11-2021 14:07-0400 SaO2% (BldA) [Mass fraction] 94 % Dr. Donna Will Work Phone: [facility] 12-11-2021 14:07-0400 Systolic blood pressure 144 mm[Hg] Dr. Donna Will Work Phone: [facility] 12-11-2021 06:00-0400 Body weight 85.[address] Donna Will Work Phone: [facility] 12-10-2021 09:37-0400 Body height 180.[address] Donna Will Work Phone: [facility] Work Phone: 12-10-2021 09:37-0400 Body mass index (BMI) [Ratio] 26.5 kg/m2 Dr. Donna Will Work Phone: [facility] 12-08-2021 19:46-0400 Body temperature 99.2 [degF] Dr. Donna Will Work Phone: [facility] Work Phone: 12-08-2021 19:46-0400 Diastolic blood pressure 62 mm[Hg] Dr. Donna Will Work Phone: [facility] Work Phone: 12-08-2021 19:46-0400 Heart rate 94 /min Dr. Donna Will Work Phone: [facility] Work Phone: 12-08-2021 19:46-0400 Inhaled oxygen flow rate 5 L/min Dr. Donna Will Work Phone: [facility] Work Phone: 12-08-2021 19:46-0400 Respiratory rate 21 /min Dr. Donna Will Work Phone: [facility] Work Phone: 12-08-2021 19:46-0400 SaO2% (BldA) [Mass fraction] 95 % Dr. Donna Will Work Phone: [facility] Work Phone: 12-08-2021 19:46-0400 Systolic blood pressure 121 mm[Hg] Dr. Donna Will Work Phone: [facility] Work Phone: 12-08-2021 17:06-0400 Body height 180.[address] Donna Will Work Phone: [facility] Work Phone: 12-08-2021 17:06-0400 Body mass index (BMI) [Ratio] 26.9 kg/m2 Dr. Donna Will Work Phone: [facility] Work Phone: 12-08-2021 17:06-0400 Body weight 87.[address] Donna Will Work Phone: [facility] Work Phone: 10-26-2021 11:03-0400 Body temperature 97.8 [degF] Dr. Donna Will Work Phone: [facility] Work Phone: 10-26-2021 11:03-0400 Diastolic blood pressure 68 mm[Hg] Dr. Donna Will Work Phone: [facility] Work Phone: 10-26-2021 11:03-0400 Heart rate 68 /min Dr. Donna Will Work Phone: [facility] Work Phone: 10-26-2021 11:03-0400 Inhaled oxygen flow rate 3 L/min Dr. Donna Will Work Phone: [facility] Work Phone: 10-26-2021 11:03-0400 Respiratory rate 18 /min Dr. Donna Will Work Phone: [facility] Work Phone: 10-26-2021 11:03-0400 SaO2% (BldA) [Mass fraction] 94 % Dr. Donna Will Work Phone: [facility] Work Phone: 10-26-2021 11:03-0400 Systolic blood pressure 137 mm[Hg] Dr. Donna Will Work Phone: [facility] Work Phone: 10-25-2021 13:51-0400 Body height 180.[address] Donna Will Work Phone: [facility] Work Phone: 10-25-2021 13:51-0400 Body mass index (BMI) [Ratio] 25.9 kg/m2 Dr. Donna Will Work Phone: [facility] Work Phone: 10-25-2021 13:51-0400 Body weight 84.[address] Donna Will Work Phone: [facility] Work Phone: 10-23-2021 08:03-0400 Body mass index (BMI) [Ratio] 26.9 kg/m2 Dr. Donna Will Work Phone: [facility] Work Phone: 10-23-2021 08:03-0400 Body temperature 98 [degF] Dr. Donna Will Work Phone: [facility] Work Phone: 10-23-2021 08:03-0400 Body weight 87.[address] Donna Will Work Phone: [facility] Work Phone: 10-23-2021 08:03-0400 Diastolic blood pressure 63 mm[Hg] Dr. Donna Will Work Phone: [facility] Work Phone: 10-23-2021 08:03-0400 Heart rate 96 /min Dr. Donna Will Work Phone: [facility] Work Phone: 10-23-2021 08:03-0400 Inhaled oxygen flow rate 3 L/min Dr. Donna Will Work Phone: [facility] Work Phone: 10-23-2021 08:03-0400 Respiratory rate 18 /min Dr. Donna Will Work Phone: [facility] Work Phone: 10-23-2021 08:03-0400 SaO2% (BldA) [Mass fraction] 81 % Dr. Donna Will Work Phone: [facility] Work Phone: 10-23-2021 08:03-0400 Systolic blood pressure 107 mm[Hg] Dr. Donna Will Work Phone: [facility] Work Phone: 10-16-2021 15:32-0400 Body mass index (BMI) [Ratio] 25.9 kg/m2 Dr. Donna Will Work Phone: [facility] Work Phone: 10-16-2021 15:32-0400 Body temperature 98.3 [degF] Dr. Donna Will Work Phone: [facility] Work Phone: 10-16-2021 15:32-0400 Body weight 84.[address] Donna Will Work Phone: [facility] Work Phone: 10-16-2021 15:32-0400 Diastolic blood pressure 70 mm[Hg] Dr. Donna Will Work Phone: [facility] Work Phone: 10-16-2021 15:32-0400 Heart rate 79 /min Dr. Donna Will Work Phone: [facility] Work Phone: 10-16-2021 15:32-0400 Respiratory rate 17 /min Dr. Donna Will Work Phone: [facility] Work Phone: 10-16-2021 15:32-0400 SaO2% (BldA) [Mass fraction] 95 % Dr. Donna Will Work Phone: [facility] Work Phone: 10-16-2021 15:32-0400 Systolic blood pressure 118 mm[Hg] Dr. Donna Will Work Phone: [facility] Work Phone: 10-09-2021 14:14-0400 Body mass index (BMI) [Ratio] 26.4 kg/m2 Dr. Donna Will Work Phone: [facility] Work Phone: 10-09-2021 14:14-0400 Body weight 86.[address] Donna Will Work Phone: [facility] Work Phone: 10-09-2021 14:14-0400 Diastolic blood pressure 69 mm[Hg] Dr. Donna Will Work Phone: [facility] Work Phone: 10-09-2021 14:14-0400 Heart rate 88 /min Dr. Donna Will Work Phone: [facility] Work Phone: 10-09-2021 14:14-0400 Inhaled oxygen flow rate 2.5 L/min Dr. Donna Will Work Phone: [facility] Work Phone: 10-09-2021 14:14-0400 Respiratory rate 18 /min Dr. Donna Will Work Phone: [facility] Work Phone: 10-09-2021 14:14-0400 SaO2% (BldA) [Mass fraction] 98 % Dr. Donna Will Work Phone: [facility] Work Phone: 10-09-2021 14:14-0400 Systolic blood pressure 123 mm[Hg] Dr. Donna Will Work Phone: [facility] Work Phone: 10-02-2021 14:00-0400 Respiratory rate 24 /min Dr. Donna Will Work Phone: [facility] Work Phone: 10-02-2021 13:50-0400 Body temperature 98.1 [degF] Dr. Donna Will Work Phone: [facility] Work Phone: 10-02-2021 13:50-0400 Diastolic blood pressure 56 mm[Hg] Dr. Donna Will Work Phone: [facility] Work Phone: 10-02-2021 13:50-0400 Heart rate 89 /min Dr. Donna Will Work Phone: [facility] Work Phone: 10-02-2021 13:50-0400 Inhaled oxygen flow rate 3 L/min Dr. Donna Will Work Phone: [facility] Work Phone: 10-02-2021 13:50-0400 SaO2% (BldA) [Mass fraction] 97 % Dr. Donna Will Work Phone: [facility] Work Phone: 10-02-2021 13:50-0400 Systolic blood pressure 114 mm[Hg] Dr. Donna Will Work Phone: [facility] Work Phone: 10-02-2021 06:00-0400 Body weight 83.[address] Donna Will Work Phone: [facility] Work Phone: 10-01-2021 19:46-0400 Body height 180.[address] Donna Will Work Phone: [facility] Work Phone: 10-01-2021 19:46-0400 Body mass index (BMI) [Ratio] 25.7 kg/m2 Dr. Donna Will Work Phone: [facility] Work Phone: 10-01-2021 18:00-0400 Body temperature 98.4 [degF] Dr. Donna Will Work Phone: [facility] Work Phone: 10-01-2021 18:00-0400 Diastolic blood pressure 58 mm[Hg] Dr. Donna Will Work Phone: [facility] Work Phone: 10-01-2021 18:00-0400 Heart rate 84 /min Dr. Donna Will Work Phone: [facility] Work Phone: 10-01-2021 18:00-0400 Inhaled oxygen flow rate 4 L/min Dr. Donna Will Work Phone: [facility] Work Phone: 10-01-2021 18:00-0400 Respiratory rate 19 /min Dr. Donna Will Work Phone: [facility] Work Phone: 10-01-2021 18:00-0400 SaO2% (BldA) [Mass fraction] 95 % Dr. Donna Will Work Phone: [facility] Work Phone: 10-01-2021 18:00-0400 Systolic blood pressure 114 mm[Hg] Dr. Donna Will Work Phone: [facility] Work Phone: 10-01-2021 14:04-0400 Body height 180.[address] Donna Will Work Phone: [facility] Work Phone: 10-01-2021 14:04-0400 Body mass index (BMI) [Ratio] 26.1 kg/m2 Dr. Donna Will Work Phone: [facility] Work Phone: 10-01-2021 14:04-0400 Body weight 84.[address] Donna Will Work Phone: [facility] Work Phone: 09-03-2021 13:52-0400 Body temperature 97.5 [degF] Dr. Donna Will Work Phone: [facility] Work Phone: 09-03-2021 13:52-0400 Diastolic blood pressure 75 mm[Hg] Dr. Donna Will Work Phone: [facility] Work Phone: 09-03-2021 13:52-0400 Heart rate 79 /min Dr. Donna Will Work Phone: [facility] Work Phone: 09-03-2021 13:52-0400 Inhaled oxygen flow rate 4 L/min Dr. Donna Will Work Phone: [facility] Work Phone: 09-03-2021 13:52-0400 Respiratory rate 18 /min Dr. Donna Will Work Phone: [facility] Work Phone: 09-03-2021 13:52-0400 SaO2% (BldA) [Mass fraction] 97 % Dr. Donna Will Work Phone: [facility] Work Phone: 09-03-2021 13:52-0400 Systolic blood pressure 127 mm[Hg] Dr. Donna Will Work Phone: [facility] Work Phone: 08-21-2021 12:06-0400 Body height 187.[address] Donna Will Work Phone: [facility] Work Phone: 08-07-2021 18:22-0400 Body temperature 97.8 [degF] Dr. Donna Will Work Phone: [facility] Work Phone: 08-07-2021 18:22-0400 Diastolic blood pressure 76 mm[Hg] Dr. Donna Will Work Phone: [facility] Work Phone: 08-07-2021 18:22-0400 Heart rate 100 /min Dr. Donna iWll Work Phone: [facility] Work Phone: 08-07-2021 18:22-0400 Inhaled oxygen flow rate 4 L/min Dr. Donna Will Work Phone: [facility] Work Phone: 08-07-2021 18:22-0400 Respiratory rate 18 /min Dr. Donna Will Work Phone: [facility] Work Phone: 08-07-2021 18:22-0400 SaO2% (BldA) [Mass fraction] 98 % Dr. Donna Will Work Phone: [facility] Work Phone: 08-07-2021 18:22-0400 Systolic blood pressure 128 mm[Hg] Dr. Donna Will Work Phone: [facility] Work Phone: 08-07-2021 11:11-0400 Body height 180.[address] Donna Will Work Phone: [facility] Work Phone: 08-07-2021 11:11-0400 Body weight 80.[address] Donna Will Work Phone: [facility] Work Phone: 08-06-2021 18:56-0400 Heart rate 107 /min Dr. Donna Will Work Phone: [facility] Work Phone: 08-06-2021 18:56-0400 Respiratory rate 19 /min Dr. Donna Will Work Phone: [facility] Work Phone: 08-06-2021 17:44-0400 SaO2% (BldA) [Mass fraction] 100 % Dr. Donna Will Work Phone: [facility] Work Phone: 08-06-2021 16:34-0400 Body height 180.[address] Donna Will Work Phone: [facility] Work Phone: 08-06-2021 16:34-0400 Body mass index (BMI) [Ratio] 24.8 kg/m2 Dr. Donna Will Work Phone: [facility] Work Phone: 08-06-2021 16:34-0400 Body weight 80.[address] Donna Will Work Phone: [facility] Work Phone: 08-06-2021 16:33-0400 Body temperature 98 [degF] Dr. Donna Will Work Phone: [facility] Work Phone: 08-06-2021 16:33-0400 Diastolic blood pressure 100 mm[Hg] Dr. Donna Will Work Phone: [facility] Work Phone: 08-06-2021 16:33-0400 Systolic blood pressure 141 mm[Hg] Dr. Donna Will Work Phone: [facility] Work Phone: 08-06-2021 15:51-0400 Body temperature 97.8 [degF] Dr. Donna Will Work Phone: [facility] Work Phone: 08-06-2021 15:51-0400 Diastolic blood pressure 64 mm[Hg] Dr. Donna Will Work Phone: [facility] Work Phone: 08-06-2021 15:51-0400 Heart rate 102 /min Dr. Donna Will Work Phone: [facility] Work Phone: 08-06-2021 15:51-0400 Respiratory rate 18 /min Dr. Donna Will Work Phone: [facility] Work Phone: 08-06-2021 15:51-0400 SaO2% (BldA) [Mass fraction] 97 % Dr. Dnona Will Work Phone: [facility] Work Phone: 08-06-2021 15:51-0400 Systolic blood pressure 122 mm[Hg] Dr. Donna Will Work Phone: [facility] Work Phone: 08-06-2021 12:07-0400 Body height 180.[address] Donna Will Work Phone: [facility] Work Phone: 08-06-2021 12:07-0400 Body mass index (BMI) [Ratio] 25.2 kg/m2 Dr. Donna Will Work Phone: [facility] Work Phone: 08-06-2021 12:07-0400 Body weight 82.[address] Donna Will Work Phone: [facility] Work Phone: 07-24-2021 08:49-0400 Body height 187.[address] Donna Will Work Phone: [facility] Work Phone: 07-24-2021 08:49-0400 Body mass index (BMI) [Ratio] 23.1 kg/m2 Dr. Donna Will Work Phone: [facility] Work Phone: 07-24-2021 08:49-0400 Body temperature 97.1 [degF] Dr. Donna Will Work Phone: [facility] Work Phone: 07-24-2021 08:49-0400 Body weight 81.[address] Donna Will Work Phone: [facility] Work Phone: 07-24-2021 08:49-0400 Diastolic blood pressure 60 mm[Hg] Dr. Donna Will Work Phone: [facility] Work Phone: 07-24-2021 08:49-0400 Heart rate 91 /min Dr. Donna Will Work Phone: [facility] Work Phone: 07-24-2021 08:49-0400 Inhaled oxygen flow rate 3 L/min Dr. Donna Will Work Phone: [facility] Work Phone: 07-24-2021 08:49-0400 Respiratory rate 14 /min Dr. Donna Will Work Phone: [facility] Work Phone: 07-24-2021 08:49-0400 SaO2% (BldA) [Mass fraction] 93 % Dr. Donna Will Work Phone: [facility] Work Phone: 07-24-2021 08:49-0400 Systolic blood pressure 94 mm[Hg] Dr. Donna Will Work Phone: [facility] Work Phone: 07-24-2021 07:42-0400 Body mass index (BMI) [Ratio] 23.1 kg/m2 Dr. Donna Will Work Phone: [facility] Work Phone: 07-24-2021 07:42-0400 Body temperature 97 [degF] Dr. Donna Will Work Phone: [facility] Work Phone: 07-24-2021 07:42-0400 Body weight 81.[address] Donna Will Work Phone: [facility] Work Phone: 07-24-2021 07:42-0400 Diastolic blood pressure 46 mm[Hg] Dr. Donna Will Work Phone: [facility] Work Phone: 07-24-2021 07:42-0400 Heart rate 79 /min Dr. Donna Will Work Phone: [facility] Work Phone: 07-24-2021 07:42-0400 Inhaled oxygen flow rate 3 L/min Dr. Donna Will Work Phone: [facility] Work Phone: 07-24-2021 07:42-0400 Respiratory rate 16 /min Dr. Donna Wlil Work Phone: [facility] Work Phone: 07-24-2021 07:42-0400 SaO2% (BldA) [Mass fraction] 93 % Dr. Donna Will Work Phone: [facility] Work Phone: 07-24-2021 07:42-0400 Systolic blood pressure 94 mm[Hg] Dr. Donna Will Work Phone: [facility] Work Phone: 07-24-2021 07:42-0400 Body mass index (BMI) [Ratio] 23.1 kg/m2 Dr. Donna Will Work Phone: [facility] Work Phone: 07-24-2021 07:42-0400 Body temperature 97 [degF] Dr. Donna Will Work Phone: [facility] Work Phone: 07-24-2021 07:42-0400 Body weight 81.[address] Donna Will Work Phone: [facility] Work Phone: 07-24-2021 07:42-0400 Diastolic blood pressure 46 mm[Hg] Dr. Donna Will Work Phone: [facility] Work Phone: 07-24-2021 07:42-0400 Heart rate 79 /min Dr. Donna Will Work Phone: [facility] Work Phone: 07-24-2021 07:42-0400 Respiratory rate 16 /min Dr. Donna Will Work Phone: [facility] Work Phone: 07-24-2021 07:42-0400 SaO2% (BldA) [Mass fraction] 93 % Dr. Donna Will Work Phone: [facility] Work Phone: 07-24-2021 07:42-0400 Systolic blood pressure 94 mm[Hg] Dr. Donna Will Work Phone: [facility] Work Phone: 06-25-2021 13:34-0400 Body mass index (BMI) [Ratio] 24.6 kg/m2 Dr. Donna Will Work Phone: [facility] Work Phone: 06-25-2021 13:34-0400 Body temperature 97.3 [degF] Dr. Donna Will Work Phone: [facility] Work Phone: 06-25-2021 13:34-0400 Body weight 87.[address] Donna Will Work Phone: [facility] Work Phone: 06-25-2021 13:34-0400 Diastolic blood pressure 65 mm[Hg] Dr. Donna Will Work Phone: [facility] Work Phone: 06-25-2021 13:34-0400 Heart rate 85 /min Dr. Donna Will Work Phone: [facility] Work Phone: 06-25-2021 13:34-0400 Inhaled oxygen flow rate 4 L/min Dr. Donna Will Work Phone: [facility] Work Phone: 06-25-2021 13:34-0400 Respiratory rate 16 /min Dr. Donna Will Work Phone: [facility] Work Phone: 06-25-2021 13:34-0400 SaO2% (BldA) [Mass fraction] 93 % Dr. Donna Will Work Phone: [facility] Work Phone: 06-25-2021 13:34-0400 Systolic blood pressure 110 mm[Hg] Dr. Donna Will Work Phone: [facility] Work Phone: 06-25-2021 13:34-0400 Body mass index (BMI) [Ratio] 24.6 kg/m2 Dr. Donna Will Work Phone: [facility] Work Phone: 06-25-2021 13:34-0400 Body temperature 97.3 [degF] Dr. Donna Will Work Phone: [facility] Work Phone: 06-25-2021 13:34-0400 Body weight 87.[address] Donna Will Work Phone: [facility] Work Phone: 06-25-2021 13:34-0400 Diastolic blood pressure 65 mm[Hg] Dr. Donna Will Work Phone: [facility] Work Phone: 06-25-2021 13:34-0400 Heart rate 85 /min Dr. Donna Will Work Phone: [facility] Work Phone: 06-25-2021 13:34-0400 Respiratory rate 16 /min Dr. Donna Will Work Phone: [facility] Work Phone: 06-25-2021 13:34-0400 SaO2% (BldA) [Mass fraction] 93 % Dr. Donna Will Work Phone: [facility] Work Phone: 06-25-2021 13:34-0400 Systolic blood pressure 110 mm[Hg] Dr. Donna Will Work Phone: [facility] Work Phone: 05-29-2021 08:46-0400 Body mass index (BMI) [Ratio] 25.1 kg/m2 Dr. Donna Will Work Phone: [facility] Work Phone: 05-29-2021 08:46-0400 Body temperature 96.5 [degF] Dr. Donna Will Work Phone: [facility] Work Phone: 05-29-2021 08:46-0400 Body weight 88.[address] Donna Will Work Phone: [facility] Work Phone: 05-29-2021 08:46-0400 Diastolic blood pressure 84 mm[Hg] Dr. Donna Will Work Phone: [facility] Work Phone: 05-29-2021 08:46-0400 Heart rate 92 /min Dr. Donna Will Work Phone: [facility] Work Phone: 05-29-2021 08:46-0400 Respiratory rate 14 /min Dr. Donna Will Work Phone: [facility] Work Phone: 05-29-2021 08:46-0400 SaO2% (BldA) [Mass fraction] 98 % Dr. Donna Will Work Phone: [facility] Work Phone: 05-29-2021 08:46-0400 Systolic blood pressure 128 mm[Hg] Dr. Donna Will Work Phone: [facility] Work Phone: 05-29-2021 08:46-0400 Body height 187.[address] Donna Will Work Phone: [facility] Work Phone: 05-29-2021 08:46-0400 Body mass index (BMI) [Ratio] 25.1 kg/m2 Dr. Donna Will Work Phone: [facility] Work Phone: 05-29-2021 08:46-0400 Body temperature 96.5 [degF] Dr. Donna Will Work Phone: [facility] Work Phone: 05-29-2021 08:46-0400 Body weight 88.[address] Donna Will Work Phone: [facility] Work Phone: 05-29-2021 08:46-0400 Diastolic blood pressure 84 mm[Hg] Dr. Donna Will Work Phone: [facility] Work Phone: 05-29-2021 08:46-0400 Heart rate 92 /min Dr. Donna Will Work Phone: [facility] Work Phone: 05-29-2021 08:46-0400 Respiratory rate 14 /min Dr. Donna Will Work Phone: [facility] Work Phone: 05-29-2021 08:46-0400 SaO2% (BldA) [Mass fraction] 98 % Dr. Donna Will Work Phone: [facility] Work Phone: 05-29-2021 08:46-0400 Systolic blood pressure 128 mm[Hg] Dr. Donna Will Work Phone: [facility] Work Phone: 05-18-2021 10:00-0400 Heart rate 73 /min Dr. Donna Will Work Phone: [facility] Work Phone: 05-18-2021 10:00-0400 Respiratory rate 18 /min Dr. Donna Will Work Phone: [facility] Work Phone: 05-18-2021 10:00-0400 SaO2% (BldA) [Mass fraction] 97 % Dr. Donna Will Work Phone: [facility] Work Phone: 05-18-2021 08:07-0400 Inhaled oxygen flow rate 4 L/min Dr. Donna Will Work Phone: [facility] Work Phone: 05-18-2021 05:04-0400 Diastolic blood pressure 63 mm[Hg] Dr. Donna Will Work Phone: [facility] Work Phone: 05-18-2021 05:04-0400 Systolic blood pressure 112 mm[Hg] Dr. Donna Will Work Phone: [facility] Work Phone: 05-17-2021 14:47-0400 Body temperature 96.9 [degF] Dr. Donna Wlil Work Phone: [facility] Work Phone: 05-15-2021 10:13-0400 Body weight 87.[address] Donna Will Work Phone: [facility] Work Phone: 05-14-2021 20:14-0400 Inhaled oxygen concentration 98 % Dr. Donna Will Work Phone: [facility] Work Phone: 05-04-2021 14:55-0500 Body mass index (BMI) [Ratio] 26.1 kg/m2 Dr. Donna Will Work Phone: [facility] Work Phone: 05-04-2021 13:55-0500 Body mass index (BMI) [Ratio] 26.1 kg/m2 Dr. Donna Will Work Phone: [facility] Work Phone: 05-04-2021 12:18-0500 SaO2% (BldA) [Mass fraction] 92 % Dr. Donna Will Work Phone: [facility] Work Phone: 05-04-2021 10:24-0500 Body temperature 98.5 [degF] Dr. Donna Will Work Phone: [facility] Work Phone: 05-04-2021 10:24-0500 Diastolic blood pressure 76 mm[Hg] Dr. Donna Will Work Phone: [facility] Work Phone: 05-04-2021 10:24-0500 Heart rate 98 /min Dr. Donna Will Work Phone: [facility] Work Phone: 05-04-2021 10:24-0500 Respiratory rate 18 /min Dr. Donna Will Work Phone: [facility] Work Phone: 05-04-2021 10:24-0500 Systolic blood pressure 134 mm[Hg] Dr. Donna Will Work Phone: [facility] Work Phone: 05-04-2021 05:00-0500 Body weight [address] Donna Will Work Phone: [facility] Work Phone: 05-02-2021 12:57-0500 Body mass index (BMI) [Ratio] 28.8 kg/m2 Dr. Donna Will Work Phone: [facility] Work Phone: 04-29-2021 05:17-0500 Diastolic blood pressure 54 mm[Hg] Dr. Donna Will Work Phone: [facility] Work Phone: 04-29-2021 05:17-0500 Heart rate 70 /min Dr. Donna Will Work Phone: [facility] Work Phone: 04-29-2021 05:17-0500 Systolic blood pressure 108 mm[Hg] Dr. Donna Will Work Phone: [facility] Work Phone: 04-29-2021 01:10-0500 Respiratory rate 20 /min Dr. Donna Will Work Phone: [facility] Work Phone: 04-29-2021 01:10-0500 SaO2% (BldA) [Mass fraction] 92 % Dr. Donna Will Work Phone: [facility] Work Phone: 04-29-2021 00:34-0500 Body temperature 98.6 [degF] Dr. Donna Will Work Phone: [facility] Work Phone: 04-28-2021 20:00-0500 Inhaled oxygen concentration 4 % Dr. Donna Will Work Phone: [facility] Work Phone: 04-27-2021 12:51-0500 Body weight 89.[address] Donna Will Work Phone: [facility] Work Phone: 04-26-2021 15:23-0500 Body mass index (BMI) [Ratio] 28.4 kg/m2 Dr. Donna Will Work Phone: [facility] Work Phone: 04-26-2021 14:43-0500 Body temperature 99.2 [degF] Dr. Donna Will Work Phone: [facility] Work Phone: 04-26-2021 14:43-0500 Diastolic blood pressure 62 mm[Hg] Dr. Donna Will Work Phone: [facility] Work Phone: 04-26-2021 14:43-0500 Heart rate 96 /min Dr. Donna Will Work Phone: [facility] Work Phone: 04-26-2021 14:43-0500 Respiratory rate 16 /min Dr. Donna Will Work Phone: [facility] Work Phone: 04-26-2021 14:43-0500 SaO2% (BldA) [Mass fraction] 93 % Dr. Donna Will Work Phone: [facility] Work Phone: 04-26-2021 14:43-0500 Systolic blood pressure 127 mm[Hg] Dr. Donna Will Work Phone: [facility] Work Phone: 04-25-2021 13:20-0500 Body weight [address] Donna Will Work Phone: [facility] Work Phone: 04-22-2021 16:37-0500 Inhaled oxygen concentration 35 % Dr. Donna Will Work Phone: [facility] Work Phone: 04-21-2021 19:15-0500 Body mass index (BMI) [Ratio] 27.7 kg/m2 Dr. Donna Will Work Phone: [facility] Work Phone: 04-19-2021 13:21-0500 Body mass index (BMI) [Ratio] 28.2 kg/m2 Dr. Donna Will Work Phone: [facility] Work Phone: 04-19-2021 13:21-0500 Body temperature 95.3 [degF] Dr. Donna Will Work Phone: [facility] Work Phone: 04-19-2021 13:21-0500 Body weight 89.[address] Donna Will Work Phone: [facility] Work Phone: 04-19-2021 13:21-0500 Diastolic blood pressure 64 mm[Hg] Dr. Donna Will Work Phone: [facility] Work Phone: 04-19-2021 13:21-0500 Heart rate 77 /min Dr. Donna Will Work Phone: [facility] Work Phone: 04-19-2021 13:21-0500 Respiratory rate 18 /min Dr. Donna Will Work Phone: [facility] Work Phone: 04-19-2021 13:21-0500 SaO2% (BldA) [Mass fraction] 94 % Dr. Donna Will Work Phone: [facility] Work Phone: 04-19-2021 13:21-0500 Systolic blood pressure 128 mm[Hg] Dr. Donna Will Work Phone: [facility] Work Phone: 04-11-2021 13:53-0500 Heart rate 88 /min Dr. Donna Will Work Phone: [facility] Work Phone: 04-11-2021 13:53-0500 Respiratory rate 20 /min Dr. Donna Will Work Phone: [facility] Work Phone: 04-11-2021 13:20-0500 SaO2% (BldA) [Mass fraction] 92 % Dr. Donna Will Work Phone: [facility] Work Phone: 04-11-2021 10:40-0500 Body temperature 97.9 [degF] Dr. Donna Will Work Phone: [facility] Work Phone: 04-11-2021 10:20-0500 Diastolic blood pressure 52 mm[Hg] Dr. Donna Will Work Phone: [facility] Work Phone: 04-11-2021 10:20-0500 Systolic blood pressure 111 mm[Hg] Dr. Donna Will Work Phone: [facility] Work Phone: 04-09-2021 14:39-0500 Body weight 93.[address] Donna Will Work Phone: [facility] Work Phone: 04-08-2021 16:22-0500 Body mass index (BMI) [Ratio] 29.6 kg/m2 Dr. Donna Will Work Phone: [facility] Work Phone: 03-28-2021 08:13-0500 Body temperature 95.9 [degF] Dr. Donna Will Work Phone: [facility] Work Phone: 03-28-2021 08:13-0500 Body weight 97.[address] Donna Will Work Phone: [facility] Work Phone: 03-28-2021 08:13-0500 Diastolic blood pressure 60 mm[Hg] Dr. Donna Will Work Phone: [facility] Work Phone: 03-28-2021 08:13-0500 Heart rate 74 /min Dr. Donna Will Work Phone: [facility] Work Phone: 03-28-2021 08:13-0500 Respiratory rate 16 /min Dr. Donna Will Work Phone: [facility] Work Phone: 03-28-2021 08:13-0500 SaO2% (BldA) [Mass fraction] 93 % Dr. Donna Will Work Phone: [facility] Work Phone: 03-28-2021 08:13-0500 Systolic blood pressure 118 mm[Hg] Dr. Donna Will Work Phone: [facility] Work Phone: 03-25-2021 08:18-0500 SaO2% (BldA) [Mass fraction] 91 % Dr. Donna Will Work Phone: [facility] Work Phone: 03-25-2021 08:07-0500 Heart rate 64 /min Dr. Donna Will Work Phone: [facility] Work Phone: 03-25-2021 07:45-0500 Body temperature 98.7 [degF] Dr. Donna Will Work Phone: [facility] Work Phone: 03-25-2021 07:45-0500 Diastolic blood pressure 58 mm[Hg] Dr. Donna Will Work Phone: [facility] Work Phone: 03-25-2021 07:45-0500 Respiratory rate 16 /min Dr. Donna Will Work Phone: [facility] Work Phone: 03-25-2021 07:45-0500 Systolic blood pressure 121 mm[Hg] Dr. Donna Will Work Phone: [facility] Work Phone: 03-25-2021 04:41-0500 Body weight 99.[address] Donna Will Work Phone: [facility] Work Phone: 03-23-2021 00:57-0500 Body mass index (BMI) [Ratio] 30.2 kg/m2 Dr. Donna Will Work Phone: [facility] Work Phone: 03-14-2021 12:34-0500 SaO2% (BldA) [Mass fraction] 97 % Dr. Donna Will Work Phone: [facility] Work Phone: 03-14-2021 11:44-0500 Heart rate 72 /min Dr. Donna Will Work Phone: [facility] Work Phone: 03-14-2021 11:44-0500 Respiratory rate 18 /min Dr. Donna Will Work Phone: [facility] Work Phone: 03-14-2021 08:41-0500 Body temperature 96 [degF] Dr. Donna Will Work Phone: [facility] Work Phone: 03-14-2021 08:41-0500 Diastolic blood pressure 60 mm[Hg] Dr. Donna Will Work Phone: [facility] Work Phone: 03-14-2021 08:41-0500 Systolic blood pressure 141 mm[Hg] Dr. Donna Will Work Phone: [facility] Work Phone: 03-14-2021 08:39-0500 Body mass index (BMI) [Ratio] 30 kg/m2 Dr. Donna Will Work Phone: [facility] Work Phone: 03-14-2021 08:39-0500 Body weight 97.[address] Donna Will Work Phone: [facility] Work Phone: Encounters Encounter Date Encounter Type Care Provider Facility Start: 12-06-2024 End: 12-06-2024 Dr. Tobi Zapata MD -[facility] Work Phone: Start: 12-06-2024 End: 12-06-2024 ambulatory Tobi [facility] Facility:[facility] Start: 11-25-2024 End: 11-25-[address] Donna Will MD Work Phone: -[facility] Start: 11-25-2024 End: 11-25-2024 Dr. Tobi Zapata MD -[facility] Work Phone: Start: 11-25-2024 End: 11-25-2024 ambulatory Tobi [facility] Facility:[facility] Start: 10-14-2024 End: 10-14-[address] Donna Will MD Work Phone: -Sleep Lab Start: 10-14-2024 End: 10-14-2024 LABORATORY INSPECTOR Gris Naik -Sleep Lab Work Phone: Start: 10-14-2024 End: 10-14-2024 ambulatory Gris Naik Facility:[facility] Start: 10-08-2024 End: 10-08-2024 Elizabeth HILARIO -[facility] Work Phone: Start: 10-08-2024 End: 10-08-2024 ambulatory Elizabeth HILARIO Facility:[facility] Start: 09-24-2024 End: 09-24-[address] Donna Will MD Work Phone: -[facility] Start: 09-24-2024 End: 09-24-2024 LABORATORY INSPECTOR Gris Naik -[facility] Work Phone: Start: 09-24-2024 End: 09-24-2024 ambulatory Donna Will Facility:[facility] Start: 09-16-2024 End: 09-16-2024 Dr. Donna Will MD -[facility] Work Phone: Start: 09-16-2024 End: 09-16-[address] Donna Will MD Work Phone: -[facility] Start: 09-13-2024 End: 09-13-[address] Donna Will MD Work Phone: -[facility] Start: 09-13-2024 End: 09-13-2024 Dr. Tobi Zapata MD -[facility] Work Phone: Start: 08-25-2024 Dr. Clive Sharp MD -[facility] Work Phone: Start: 08-24-2024 Dr. Clive Sharp MD -[facility] Work Phone: Start: 08-23-2024 ambulatory [facility] Facility :[facility] Start: 08-23-2024 Dr. Warren Murray MD -[facility] Start: 08-23-2024 Dr. Clive Sharp MD [facility] Work Phone: Start: 08-22-2024 Dr. Clive Sharp MD -[facility] Work Phone: Start: 08-21-2024 ambulatory Donna [facility] Facility :[facility] Start: 08-21-2024 End: 08-25-2024 Evaluation and management of inpatient Dr. Donna Will MD Work Phone: -Intensive Care Unit Start: 08-21-2024 End: 08-25-2024 Dr. Clive Sharp MD -[facility] Work Phone: Start: 08-13-2024 ambulatory [facility] Facility :[facility] Start: 08-03-2024 Dr. Tobi Zapata MD -[facility] Start: 07-27-2024 Dr. Tobi Zapata MD -[facility] Start: 07-25-2024 ambulatory Wilberto Antonio ty:[facility] Start: 07-23-2024 End: 07-23-[address] Donna Will MD Work Phone: [facility] Work Phone: Start: 07-23-2024 End: 07-23-2024 Dr. Tobi Zapata MD -[facility] Work Phone: Start: 07-23-2024 End: 07-23-2024 ambulatory Tobi Zapata Facility:[facility] Start: 07-21-2024 End: 07-21-[address] Donna Will MD Work Phone: [facility] Work Phone: Start: 07-21-2024 End: 07-21-2024 Dr. Wilberto Villafuerte MD -Laboratory [facility] Work Phone: Start: 07-20-2024 End: 07-21-[address] Donna Will MD Work Phone: [facility] Work Phone: Start: 07-20-2024 End: 07-20-2024 Dr. Tobi Zapata MD -[facility] Work Phone: Start: 07-14-2024 End: 07-14-[address] Donna Will MD Work Phone: [facility] Work Phone: Start: 07-14-2024 End: 07-14-2024 Dr. Wilberto Villafuerte MD -Home Health Lab Start: 07-12-2024 End: 07-12-[address] Donna Will MD Work Phone: [facility] Work Phone: Start: 07-12-2024 End: 07-12-2024 LABORATORY INSPECTOR Gris Naik -Pulmonary Services/Neurology Work Phone: Start: 07-12-2024 End: 07-12-2024 ambulatory Girs Naik Facility:[facility] Start: 07-08-2024 End: 07-08-2024 Emergency department patient visit Dr. Donna Will MD Work Phone: [facility] Work Phone: Start: 07-08-2024 End: 07-08-2024 Dr. Donna Will MD Work Phone: -Emergency Department Work Phone: Start: 07-05-2024 End: 07-05-[address] Donna Will MD Work Phone: [facility] Work Phone: Start: 07-05-2024 End: 07-05-2024 Dr. Wilberto Villafuerte MD -Home Health Lab Start: 07-05-2024 End: 07-05-2024 ambulatory Wilberto Villafuerte Facility:[facility] Start: 06-30-2024 End: 06-30-2024 Dr. Donna Will MD -[facility] Work Phone: Start: 06-30-2024 End: 06-30-2024 ambulatory Donna Will Facility:[facility] Start: 06-29-2024 End: 06-29-2024 Dr. Wilberto Villafuerte MD -Medical Out Work Phone: Start: 06-29-2024 End: 06-29-[address] Donna Will MD Work Phone: [facility] Work Phone: Start: 06-28-2024 Dr. Wilberto astorga MD -Home Health Lab Start: 06-25-2024 Dr. Jordan Ortiz MD [facility] Work Phone: Start: 06-24-2024 Dr. Jordan Ortiz MD - [facility] Work Phone: Start: 06-23-2024 Dr. Jordan Ortiz MD - [facility] Work Phone: Start: 06-23-2024 Dr. Anthony Singleton DO -[facility] Start: 06-22-2024 ambulatory Chicho Carson Fa cility:[facility] Start: 06-22-2024 Dr. Chicho Carson MD -[facility] Start: 06-22-2024 Dr. Jordan Ortiz MD - [facility] Work Phone: Start: 06-22-2024 Dr. Anthony Singleton DO -[facility] -[facility] Start: 06-21-2024 ambulatory Marco Dang [facility] Start: 06-21-2024 Dr. Marco Dang MD -[facility] -[facility] Start: 06-21-2024 Dr. Jordan Ortiz MD - [facility] Work Phone: Start: 06-20-2024 ambulatory Mable Pritchard Facility:[facility] Start: 06-20-2024 End: 06-25-2024 Evaluation and management of inpatient Mable Pritchard Facility:[facility] Start: 06-20-2024 End: 06-25-2024 Dr. Jordan Ortiz MD -[facility] Work Phone: Start: 05-27-2024 Dr. Tobi Zapata MD -[facility] ster Oncology Start: 05-18-2024 End: 05-18-2024 LABORATORY INSPECTOR Gris Naik -[facility] Work Phone: Start: 05-18-2024 End: 05-18-2024 ambulatory Donna [facility]ner Facility:[facility] Start: 04-27-2024 End: 04-27-2024 Martha Dodson LABORATORY INSPECTOR-[facility] Work Phone: Start: 04-27-2024 End: 04-27-2024 ambulatory Donna [facility]astonner Facility:[facility] Start: 04-22-2024 End: 04-22-2024 Khai Galeana [facility] Gastro[facility] Work Phone: Start: 04-22-2024 End: 04-22-2024 ambulatory Khai [place] Facility:[facility] Start: 04-08-2024 Dr. Huang Lazcano MD -[facility] Work Phone: Start: 04-07-2024 Khai Galeana DO -[facility] Start: 04-07-2024 Dr. Huang Lazcano MD -[facility] Work Phone: Start: 04-07-2024 Dr. Anthoyn Singleton DO -[facility] -[facility] Start: 04-06-2024 Khai Galeana [facility] Start: 04-06-2024 Dr. Huang Lazcano MD -[facility] Work Phone: Start: 04-06-2024 Dr. Anthony Singleton DO [facility] -[facility] Start: 04-05-2024 ambulatory Khai Galeana Facility :[facility] Start: 04-05-2024 End: 04-08-2024 Evaluation and management of inpatient Huang Lazcano Facility:[facility] Start: 04-05-2024 End: 04-08-2024 Dr. Huang Lazcano MD -Intensive Care Unit Work Phone: Start: 03-16-2024 End: 03-16-2024 Elizabeth HILARIO -[facility] Work Phone: Start: 03-16-2024 End: 03-16-2024 ambulatory Donna Will Facility:[facility] Start: 03-05-2024 End: 03-05-2024 LABORATORY INSPECTOR Gris Naik -[facility] Medicine Work Phone: Start: 03-05-2024 End: 03-05-2024 ambulatory Gris Naik Facility:[facility] Start: 03-05-2024 End: 03-05-2024 ambulatory Gris Naik Facility:[facility] Start: 03-03-2024 End: 03-03-2024 Dr. Donna Will MD -[facility] Work Phone: Start: 03-03-2024 End: 03-03-2024 ambulatory Donna Will Facility:[facility] Start: 02-27-2024 End: 02-27-2024 ambulatory Donna Will Facility:[facility] Start: 01-27-2024 End: 01-27-2024 ambulatory [facility] Facility:[facility] Start: 06-05-2023 Dr. Donna Garcia hner Work Phone: [facility] Work Phone: Start: 06-05-2023 Dr. Donna Garcia hner Work Phone: [facility] Start: 06-05-2023 End: 06-05-[address] Donna Will Work Phone: [facility] Work Phone: Start: 06-05-2023 End: 06-05-2023 Dr. Donna Will Work Phone: [facility] Work Phone: Start: 05-28-2023 End: 05-28-2023 Dr. Donna Will Work Phone: [facility] Work Phone: Start: 05-12-2023 End: 05-12-[address] Donna Will Work Phone: [facility] Work Phone: Start: 05-12-2023 End: 05-12-2023 Dr. Donna Will Work Phone: [facility]-Laboratory Work Phone: Start: 05-09-2023 Dr. Donna Garcia hner Work Phone: [facility] Oncology Start: 05-07-2023 End: 05-07-2023 Dr. Donna Will Work Phone: [facility] Work Phone: Start: 05-07-2023 End: 05-07-[address] Donna Will Work Phone: [facility] Work Phone: Start: 05-07-2023 End: 05-07-2023 Dr. Donna Will Work Phone: [facility]-Laboratory Work Phone: Start: 04-25-2023 End: 04-25-[address] Donna Will Work Phone: [facility] Work Phone: Start: 04-25-2023 End: 04-25-2023 Dr. Donna Will Work Phone: [facility]-Laboratory Work Phone: Start: 04-03-2023 End: 04-24-[address] Donna Will Work Phone: [facility] Work Phone: Start: 04-03-2023 End: 04-24-2023 Dr. Donna Will Work Phone: [facility]-Home Health Lab Start: 03-27-2023 End: 03-27-2023 Dr. Donna Will Work Phone: [facility] Work Phone: Start: 03-21-2023 Dr. Donna Garcia hner Work Phone: [facility] Work Phone: Start: 03-21-2023 ambulatory [facility] Start: 03-21-2023 Patient encounter procedure Adri [facility] Start: 03-20-2023 Dr. Donna Garcia hner Work Phone: [facility] Work Phone: Start: 03-20-2023 Dr. Donna Garcia hner Work Phone: [facility] Start: 03-19-2023 Dr. Donna Garcia hner Work Phone: [facility] Start: 03-19-2023 Dr. Donna Garcia hner Work Phone: [facility] Work Phone: Start: 03-18-2023 Dr. Donna Garcia hner Work Phone: [facility] Work Phone: Start: 03-18-2023 Dr. Donna Garcia hner Work Phone: [facility] Start: 03-18-2023 Dr. Donna Garcia hner Work Phone: [facility] Start: 03-17-2023 Dr. Donna Garcia hner Work Phone: [facility] Start: 03-17-2023 Dr. Donna Garcia hner Work Phone: [facility] Start: 03-17-2023 Dr. Donna Garcia hner Work Phone: [facility] Work Phone: Start: 03-17-2023 Dr. Donna Garcia hner Work Phone: [facility] Start: 03-16-2023 Evaluation and management of inpatient Dr. Donna Will Work Phone: [facility] Work Phone: Start: 03-16-2023 End: 03-21-2023 Dr. Donna Will Work Phone: [facility]-Intensive Care Unit Work Phone: Start: 03-06-2023 [...] of inpatient Dr. Donna Will Work Phone: [facility] Work Phone: Start: 03-03-2023 End: 03-06-2023 Dr. Donna Will Work Phone: [facility]-Progressive Care Unit Work Phone: Start: 03-02-2023 [...] of inpatient Dr. Donna Will Work Phone: [facility]-Progressive Care Unit Work Phone: Start: 02-28-[address] Paula Will Work Phone: [facility] Work Phone: Start: 02-06-[address] Donna Will Work Phone: [facility] Oncology Start: 02-06-2023 Dr. Donna Garcia hner Work Phone: [facility] Start: 01-30-[address] Donna Will Work Phone: [facility] Start: 01-28-2023 End: 01-28-[address] [facility] Work Phone: Start: 01-28-2023 End: 01-28-2023 Dr. [facility] Work Phone: Start: 01-25-2023 End: 01-25-[address] Donna Will Work Phone: [facility] Work Phone: Start: 01-25-2023 End: 01-25-[address] Donna Will Work Phone: [facility] Work Phone: Start: 01-25-2023 End: 01-25-2023 Dr. Donna Will Work Phone: [facility] Work Phone: Start: 01-21-2023 End: 01-21-2023 [...] encounter procedure Dr. Donna Will Work Phone: [facility] Work Phone: Start: 11-21-2022 End: 11-21-2022 Dr. Donna Will Work Phone: [facility] Work Phone: Start: 11-17-2022 Non-patient / Non-visit LABORATORY INSPECTOR-C OLEG PIÑA Work Phone: [facility] Work Phone: Start: 11-17-2022 Dr. Donna Garcia hner Work Phone: [facility] Work Phone: Start: 11-16-2022 Non-patient / Non-visit LABORATORY INSPECTOR-C OLEG PIÑA Work Phone: [facility] Work Phone: Start: 11-16-2022 Dr. Donna Garcia hner Work Phone: [facility] Work Phone: Start: 11-15-2022 End: 11-17-2022 Evaluation and management of inpatient LABORATORY INSPECTOR-C OLEG PIÑA [facility] Start: 11-15-2022 Non-patient / Non-visit LABORATORY INSPECTOR-C OLEG PIÑA Work Phone: [facility] Work Phone: Start: 11-15-2022 End: 11-17-2022 Dr. Donna Will Work Phone: [facility] Work Phone: Start: 11-08-2022 Registered Recurring LABORATORY INSPECTOR-C EDWARDD A PIÑA Work Phone: [facility] Start: 10-29-2022 End: 10-29-2022 Patient encounter procedure LABORATORY INSPECTOR-C OLEG PIÑA Work Phone: [facility] Work Phone: Start: 09-30-2022 End: 09-30-2022 Patient encounter procedure LABORATORY INSPECTOR-C OLEG PIÑA Work Phone: [facility] Work Phone: Start: 09-13-2022 End: 09-13-2022 Patient encounter procedure LABORATORY INSPECTOR-C OLEG PIÑA Work Phone: [facility] Work Phone: Start: 09-04-2022 End: 09-04-2022 Patient encounter procedure LABORATORY INSPECTOR-C OLEG PIÑA Work Phone: [facility] Work Phone: Start: 08-29-2022 End: 08-29-2022 Emergency department patient visit LABORATORY INSPECTOR-C OLEG PIÑA Work Phone: [facility]-Emergency Department Work Phone: Start: 08-29-2022 End: 08-29-2022 Patient encounter procedure LABORATORY INSPECTOR-C OLEG PIÑA Work Phone: [facility]-Laboratory Work Phone: Start: 08-19-2022 End: 08-19-2022 Patient encounter procedure LABORATORY INSPECTOR-C OLEG PIÑA Work Phone: [facility] Work Phone: Start: 08-14-2022 End: 08-14-2022 Patient encounter procedure LABORATORY INSPECTOR-C OLEG PIÑA Work Phone: [facility] Work Phone: Start: 08-12-2022 End: 08-12-2022 Patient encounter procedure LABORATORY INSPECTOR-C OLEG PIÑA Work Phone: [facility] Work Phone: Start: 08-08-2022 End: 08-08-2022 Patient encounter procedure LABORATORY INSPECTOR-C OLEG PIÑA Work Phone: [facility] Work Phone: Start: 08-08-2022 Registered Recurring LABORATORY INSPECTOR-C WAND A PIÑA Work Phone: [facility] Start: 07-23-2022 End: 07-23-2022 Patient encounter procedure LABORATORY INSPECTOR-C OLEG PIÑA Work Phone: [facility] Work Phone: Start: 07-09-2022 End: 07-09-2022 Patient encounter procedure LABORATORY INSPECTOR-C OLEG PIÑA Work Phone: [facility] Work [facility] Start: 06-19-2022 End: 06-19-2022 ambulatory LABORATORY INSPECTOR-C OLEG PIÑA Work Phone: [facility] Work Phone: Start: 06-19-2022 End: 06-19-2022 Patient encounter procedure LABORATORY INSPECTOR-C OLEG PIÑA Work Phone: [facility] Gastro[facility] Start: 06-05-2022 End: 06-05-2022 ambulatory LABORATORY INSPECTOR-C OLEG PIÑA Work Phone: [facility] Work Phone: Start: 06-05-2022 End: 06-05-2022 Patient encounter procedure LABORATORY INSPECTOR-C OLEG PIÑA Work Phone: [facility], [facility] Start: 05-29-2022 End: 05-29-2022 Patient encounter procedure LABORATORY INSPECTOR-C OLEG PIÑA [facility] Start: 05-16-2022 Non-patient / Non-visit LABORATORY INSPECTOR-C OLEG PIÑA Work Phone: [facility] Start: 05-15-2022 End: 05-15-2022 ambulatory LABORATORY INSPECTOR-C OLEG PIÑA Work Phone: [facility] Work Phone: Start: 05-15-2022 End: 05-15-2022 Patient encounter procedure LABORATORY INSPECTOR-C OLEG PIÑA [facility] Start: 05-14-2022 Non-patient / Non-visit LABORATORY INSPECTOR-C OLEG PIÑA Work Phone: [facility] Start: 05-13-2022 Registered Recurring LABORATORY INSPECTOR-C WAND A PIÑA Work Phone: [facility] Start: 05-13-2022 End: 05-13-2022 ambulatory LABORATORY INSPECTOR-C OLEG PIÑA Work Phone: [facility] Work Phone: Start: 05-13-2022 End: 05-13-2022 Patient encounter procedure LABORATORY INSPECTOR-C OLEG PIÑA Work Phone: [facility]-Pulmonary Services/Neurology Start: 04-29-2022 End: 04-29-2022 Patient encounter procedure LABORATORY INSPECTOR-C OLEG PIÑA Work Phone: [facility] Start: 03-22-2022 End: 03-22-2022 ambulatory LABORATORY INSPECTOR-C OLEG PIÑA Work Phone: [facility] Work Phone: Start: 03-22-2022 End: 03-22-2022 Patient encounter procedure LABORATORY INSPECTOR-C OLEG PIÑA Work Phone: [facility], [facility] Start: 03-22-2022 End: 03-22-2022 LABORATORY INSPECTOR-C OLEG PIÑA Work Phone: [facility], [facility] Start: 03-09-2022 End: 03-09-2022 ambulatory LABORATORY INSPECTOR-C OLEG PIÑA Work Phone: [facility] Work Phone: Start: 03-09-2022 End: 03-09-2022 Patient encounter procedure LABORATORY INSPECTOR-C OLEG PIÑA Work Phone: [facility] [facility] Start: 03-09-2022 End: 03-09-2022 LABORATORY INSPECTOR-C OLEG PIÑA [facility] Start: 02-27-2022 End: 02-27-2022 Patient encounter procedure LABORATORY INSPECTOR-C OLEG PIÑA [facility] Phone[facility] Start: 02-27-2022 End: 02-27-2022 LABORATORY INSPECTOR-C OLEG PIÑA [facility] Phone[facility] Start: 02-16-2022 Non-patient / Non-visit LABORATORY INSPECTOR-C OLEG PIÑA Work Phone: [facility] Start: 02-16-2022 LABORATORY INSPECTOR-C OLEG SIM MONS Work Phone: [facility] Start: 02-16-2022 Non-patient / Non-visit LABORATORY INSPECTOR-C OLEG PIÑA Work Phone: [facility] Start: 02-16-2022 LABORATORY INSPECTOR-C OLEG SIM MONS Work Phone: [facility] Start: 02-15-2022 Non-patient / Non-visit LABORATORY INSPECTOR-C OLEG PIÑA Work Phone: [facility] Start: 02-15-2022 LABORATORY INSPECTOR-C OLEG SIM MONS Work Phone: [facility] Start: 02-15-2022 Non-patient / Non-visit LABORATORY INSPECTOR-C OLEG PIÑA Work Phone: [facility] Start: 02-15-2022 LABORATORY INSPECTOR-C OLEG SIM MONS Work Phone: [facility] Start: 02-14-2022 Non-patient / Non-visit LABORATORY INSPECTOR-C OLEG PIÑA Work Phone: [facility] Start: 02-14-2022 End: 02-16-2022 Evaluation and management of inpatient LABORATORY INSPECTOR-C OLEG PIÑA [facility] Start: 02-14-2022 End: 02-16-2022 LABORATORY INSPECTOR-C OLEG PIÑA [facility] Start: 02-06-2022 End: 02-06-2022 ambulatory LABORATORY INSPECTOR-C OLEG PIÑA Work Phone: [facility] Work Phone: Start: 02-06-2022 End: 02-06-2022 Patient encounter procedure LABORATORY INSPECTOR-C OLEG PIÑA Work Phone: [facility], Specimen Start: 02-06-2022 End: 02-06-2022 LABORATORY INSPECTOR-C OLEG PIÑA Work Phone: [facility], Specimen Start: 02-05-2022 Registered Recurring LABORATORY INSPECTOR-C EDWARDD Binh PIÑA Work Phone: [facility] Start: 02-05-2022 End: 02-05-2022 Patient encounter procedure LABORATORY INSPECTOR-C OLEG PIÑA Work Phone: [facility] Start: 02-05-2022 End: 02-05-2022 LABORATORY INSPECTOR-Gurwinder PIÑA Work Phone: [facility] Start: 01-15-2022 End: 01-15-[address] Donna Will Work Phone: [facility] Work Phone: Start: 01-15-2022 End: 01-15-[address] Donna Will Work Phone: [facility], Specimen Start: 01-15-2022 End: 01-15-2022 LABORATORY INSPECTORChas PIÑA Work Phone: [facility], Specimen Start: 01-14-[address] Donna Will Work Phone: [facility] Start: 01-08-2022 End: 01-08-[address] Donna Will Work Phone: [facility] Start: 01-08-2022 End: 01-08-2022 LABORATORY INSPECTOR-Gurwinder PIÑA Work Phone: [facility] Start: 12-26-[address] Donna Will Work Phone: [facility] Start: 12-26-2021 End: 12-26-[address] Donna Will Work Phone: [facility] Start: 12-26-2021 End: 12-26-2021 LABORATORY INSPECTORChas PIÑA Work Phone: [facility] Start: 12-21-2021 End: 12-21-[address] Donna Will Work Phone: [facility] Work Phone: Start: 12-21-2021 End: 12-21-[address] Donna Will Work Phone: [facility] Start: 12-21-2021 End: 12-21-2021 LABORATORY INSPECTOR-C OLEG ONEALMONS Work Phone: [facility] Start: 12-11-2021 Non-patient / Non-visit Dr. Donna Will Work Phone: [facility] Start: 12-11-2021 LABORATORY INSPECTOR-C OLEG SIM MONS Work Phone: [facility] Start: 12-10-2021 Non-patient / Non-visit Dr. Dnona Will Work Phone: [facility] Start: 12-10-2021 LABORATORY INSPECTOR-C OLEG SIM MONS Work Phone: [facility] Start: 12-09-2021 Non-patient / Non-visit Dr. Donna Will Work Phone: [facility] Start: 12-09-2021 LABORATORY INSPECTOR-C OLEG SIM MONS Work Phone: [facility] Start: 12-09-2021 Non-patient / Non-visit Dr. Donna Will Work Phone: [facility] Start: 12-09-2021 LABORATORY INSPECTOR-C OLEG SIM MONS Work Phone: [facility] Start: 12-08-2021 Non-patient / Non-visit Dr. Donna Will Work Phone: [facility] Start: 12-08-2021 End: 12-11-2021 Evaluation and management of inpatient Dr. Donna Will Work Phone: [facility] 3 Start: 12-08-2021 End: 12-11-2021 SORIN PIÑA [facility] Phone[facility] Start: 11-16-2021 End: 11-16-[address] Donna Will Work Phone: [facility]Labor[facility], Specimen Start: 10-26-2021 Non-patient / Non-visit Dr. Donna Will Work Phone: [facility] Start: 10-25-2021 Non-patient / Non-visit Dr. Donna Will Work Phone: [facility] Start: 10-25-2021 Non-patient / Non-visit Dr. Donna Will Work Phone: [facility] Start: 10-24-2021 Non-patient / Non-visit Dr. Donna Will Work Phone: [facility] Start: 10-24-2021 Non-patient / Non-visit Dr. Donna Will Work Phone: [facility] Start: 10-23-2021 Non-patient / Non-visit Dr. Donna Will Work Phone: [facility] Start: 10-23-2021 End: 10-26-2021 Evaluation and management of inpatient Dr. Donna Will [facility] Start: 10-23-2021 End: 10-23-[address] Donna Will [facility] Phone[facility] Start: 10-16-2021 End: 10-16-[address] Donna Will Work Phone: [facility] Start: 10-09-2021 End: 10-09-[address] Donna Will Work Phone: [facility] Start: 10-02-2021 Non-patient / Non-visit Dr. Donna Will Work Phone: [facility] Start: 10-01-2021 End: 10-02-2021 Evaluation and management of inpatient Dr. Donna Will [facility] Start: 09-04-2021 Non-patient / Non-visit Dr. Donna Will Work Phone: [facility] Start: 09-04-2021 End: 09-04-[address] Donna Will Work Phone: [facility] Start: 09-03-2021 End: 09-03-[address] Donna Will Work Phone: [facility] Start: 08-07-2021 Non-patient / Non-visit Dr. Donna Will Work Phone: [facility] Start: 08-06-2021 End: 08-07-2021 Evaluation and management of inpatient Dr. Donna Will [facility] Start: 08-03-2021 End: 08-03-[address] Donna Will Work Phone: [facility], Specimen Start: 08-01-2021 End: 08-01-[address] Donna Will Work Phone: [facility], Specimen Start: 07-26-2021 End: 07-26-[address] Donna Will Work Phone: [facility] Start: 07-24-2021 End: 07-24-[address] Donna Will [facility] Phone[facility] Start: 06-25-2021 End: 06-25-[address] Donna Will [facility] Phone[facility] Start: 06-19-2021 Non-patient / Non-visit Dr. Donna Will Work Phone: [facility] Start: 06-19-2021 Dr. Donna de souza Work Phone: [facility] Start: 06-15-2021 End: 06-15-[address] Donna Will [facility] Phone[facility] Start: 06-15-2021 End: 06-15-2021 Dr. Donna Will [facility] Phone[facility] Start: 05-29-2021 End: 05-29-[address] Donna Will Work Phone: [facility] Start: 05-29-2021 End: 05-29-2021 Dr. Donna Will Work Phone: [facility] Start: 05-29-2021 End: 05-29-[address] Donna Will Work Phone: [facility] Start: 05-29-2021 End: 05-29-2021 Dr. Donna Will Work Phone: [facility] Start: 05-04-2021 End: 05-18-2021 Evaluation and management of inpatient Dr. Donna Will [facility] Start: 05-04-2021 End: 05-18-2021 Dr. Donna Will [facility] Start: 05-04-2021 Non-patient / Non-visit Dr. Donna Will Work Phone: [facility] Start: 05-04-2021 Dr. Donna Garcia hner Work Phone: [facility] Start: 05-04-2021 Non-patient / Non-visit Dr. Donna Will Work Phone: [facility] Start: 05-04-2021 Dr. Donna Garcia hner Work Phone: [facility] Start: 05-03-2021 Non-patient / Non-visit Dr. Donna Will Work Phone: [facility] Start: 05-03-2021 Dr. Donna Garcia hner Work Phone: [facility] Start: 05-02-2021 Non-patient / Non-visit Dr. Donna Will Work Phone: [facility] Start: 05-02-2021 Dr. Donna Garcia hner Work Phone: [facility] Start: 05-02-2021 Non-patient / Non-visit Dr. Donna Will Work Phone: [facility] Start: 05-02-2021 Dr. Donna Garcia hner Work Phone: [facility] Start: 05-02-2021 Non-patient / Non-visit Dr. Donna Will Work Phone: [facility] Start: 05-02-2021 Dr. Donna Garcia hner Work Phone: [facility] Start: 05-01-2021 Non-patient / Non-visit Dr. Donna Will Work Phone: [facility] Start: 05-01-2021 Dr. Donna Garcia hner Work Phone: [facility] Start: 05-01-2021 Non-patient / Non-visit Dr. Donna Will Work Phone: [facility] Start: 05-01-2021 Dr. Donna Garcia hner Work Phone: [facility] Start: 05-01-2021 Non-patient / Non-visit Dr. Donna Will Work Phone: [facility] Start: 05-01-2021 Dr. Donna Garcia hner Work Phone: [facility] Start: 05-01-2021 Non-patient / Non-visit Dr. Donna Wlil Work Phone: [facility] Start: 05-01-2021 Dr. Donna Garcia hner Work Phone: [facility] Start: 04-30-2021 Non-patient / Non-visit Dr. Donna Will Work Phone: [facility] Start: 04-30-2021 Dr. Donna Garcia hner Work Phone: [facility] Start: 04-29-2021 Non-patient / Non-visit Dr. Donna Will Work Phone: [facility] Start: 04-29-2021 End: 05-04-2021 Evaluation and management of inpatient Dr. Donna Will [facility] Start: 04-29-2021 End: 05-04-2021 Dr. Donna Will [facility] Start: 04-26-2021 End: 04-29-2021 Evaluation and management of inpatient Dr. Donna Will [facility] Start: 04-26-2021 Non-patient / Non-visit Dr. Donna Will Work Phone: [facility] Start: 04-26-2021 Non-patient / Non-visit Dr. Donna Will Work Phone: [facility] Start: 04-26-2021 End: 04-30-2021 Dr. Donna Will [facility] Start: 04-25-2021 Non-patient / Non-visit Dr. Donna Will Work Phone: [facility] Start: 04-25-2021 Dr. Donna Garcia hner Work Phone: [facility] Start: 04-25-2021 Non-patient / Non-visit Dr. Donna Will Work Phone: [facility] Start: 04-25-2021 Dr. Donna Garcia hner Work Phone: [facility] Start: 04-24-2021 Non-patient / Non-visit Dr. Donna Will Work Phone: [facility] Start: 04-24-2021 Dr. Donna Garcia hner Work Phone: [facility] Start: 04-24-2021 Non-patient / Non-visit Dr. Donna Will Work Phone: [facility] Start: 04-24-2021 Dr. Donna Garcia hner Work Phone: [facility] Start: 04-23-2021 Non-patient / Non-visit Dr. Donna Will Work Phone: [facility] Start: 04-23-2021 Dr. Donna Garcia hner Work Phone: [facility] Start: 04-23-2021 Non-patient / Non-visit Dr. Donna Will Work Phone: [facility] Start: 04-23-2021 Dr. Donna Garcia hner Work Phone: [facility] Start: 04-22-2021 End: 04-26-2021 Evaluation and management of inpatient Dr. Donna Will Work Phone: [facility] 3 Start: 04-22-2021 End: 04-26-2021 Dr. Donna Will Work Phone: [facility] 3 Start: 04-21-2021 Non-patient / Non-visit Dr. Donna Will Work Phone: [facility] Start: 04-21-2021 Dr. Donna francor Work Phone: [facility] Start: 04-19-2021 End: 04-19-[address] Donna Will Work Phone: [facility] Start: 04-19-2021 End: 04-19-2021 Dr. Donna Will Work Phone: [facility] Start: 04-11-2021 Non-patient / Non-visit Dr. Donna Will Work Phone: [facility] Start: 04-11-2021 Dr. Donna Garcia hner Work Phone: [facility] Start: 04-10-2021 Non-patient / Non-visit Dr. Donna Will Work Phone: [facility] Start: 04-10-2021 Dr. Donna Garcia hner Work Phone: [facility] Start: 04-09-2021 Non-patient / Non-visit Dr. Donna Will Work Phone: [facility] Start: 04-09-2021 Dr. Donna Garcia hner Work Phone: [facility] Start: 04-09-2021 Non-patient / Non-visit Dr. Donna Will Work Phone: [facility] Start: 04-09-2021 Dr. Donna Garcia hner Work Phone: [facility] Start: 04-08-2021 End: 04-11-2021 Evaluation and management of inpatient Dr. Donna Will Work Phone: [facility] Start: 04-08-2021 End: 04-11-2021 Dr. Donna Will [facility] Start: 04-05-2021 End: 04-05-2021 Dr. Donna Will Work Phone: [facility] Start: 04-04-2021 End: 04-04-2021 Dr. Donna Will Work Phone: [facility] Start: 04-04-2021 Dr. Donna Garcia hner Work Phone: [facility] Start: 03-28-2021 End: 03-28-2021 Dr. Donna Will Work Phone: [facility] Start: 03-25-2021 Dr. Donna Garcia hner Work Phone: [facility] Start: 03-23-2021 Dr. Donna Garcia hner Work Phone: [facility] Start: 03-22-2021 End: 03-25-2021 Dr. Donna Will Work Phone: [facility] Start: 03-14-2021 End: 03-14-2021 Dr. Donna Will Work Phone: [facility] Start: 02-05-2021 Dr. Donna francor Work Phone: [facility]Laboratory, [facility] Procedures Date Procedure Procedure Detail [...] Work Phone: Start: 11-15-2022 Plain chest X-ray LABORATORY INSPECTOR-C OLEG PIÑA Work Phone: Start: 07-29-2022 Measurement of occult blood in stool specimen using immunoassay LABORATORY INSPECTOR-C OLEG PIÑA Work Phone: Start: 07-09-2022 Computed tomography of abdomen and pelvis with contrast LABORATORY INSPECTOR-C OLEG PIÑA Work Phone: Start: 06-05-2022 [employer]wallow LABORATORY INSPECTOR-C OLEG PIÑA Work Phone: Start: 05-03-2022 Measurement of occult blood in stool specimen using immunoassay LABORATORY INSPECTOR-C OLEG PIÑA Work Phone: Start: 03-22-2022 [employer]allow LABORATORY INSPECTOR-C OLEG PIÑA Work Phone: Start: 02-15-2022 Plain chest X-ray LABORATORY INSPECTOR-C OLEG PIÑA Work Phone: Start: 02-14-2022 CT angiography of chest with contrast LABORATORY INSPECTOR-C OLEG PIÑA Work Phone: Start: 02-14-2022 Plain chest X-ray LABORATORY INSPECTOR-C OLEG PIÑA Work Phone: Start: 02-14-2022 CT of head without contrast LABORATORY INSPECTOR-C OLEG Doyle IMMONS Work Phone: Start: 12-10-2021 [...] Phone: Bacteria identified in Blood by Culture LABORATORY INSPECTOR-C OLEG PIÑA Work Phone: Bacteria identified in Urine by Culture LABORATORY INSPECTOR-C OLEG PIÑA Work Phone: H/O: surgery Dr. Donna pollock Work Phone: Investigation of tra nsfusion reaction Dr. Donna Will Work Phone: Investigation of tra nsfusion reaction LABORATORY INSPECTOR-C OLEG PIÑA Work Phone: Legionella pneumophi la antigen assay Dr. Donna Will Work Phone: Legionella pneumophi la antigen assay LABORATORY INSPECTOR-C OLEG PIÑA Work Phone: Measurement of occul t blood in stool specimen using immunoassay Dr. Donna Will Work Phone: Measurement of occul t blood in stool specimen using immunoassay LABORATORY INSPECTOR-C OLEG PIÑA Work Phone: Respiratory microbial culture Dr. Donna Will Work Phone: Respiratory microbial culture LABORATORY INSPECTOR-C OLEG PIÑA Work Phone: Respiratory Panel (PCR) Dr. Donna Will Work Phone: Respiratory Panel (PCR) LABORATORY INSPECTOR-C OLEG PIÑA Work Phone: SARS-CoV-2 & FLU Antigen (Rapid) Dr. Donna Will Work Phone: Streptococcus pneumoniae Antigen (M Dr. Donna Will Work Phone: Urine culture LABORATORY INSPECTOR-C OLEG SIM MONS Work Phone: Urine culture LABORATORY INSPECTOR-C OLEG SIM MONS Work Phone: LABORATORY INSPECTOR-C OLEG SIMM ONS Work Phone: LABORATORY INSPECTOR-C OLEG SIMM ONS Work Phone: LABORATORY INSPECTOR-C OLEG SIMM ONS Work Phone: LABORATORY INSPECTOR-Gurwinder OLEG LAYTON ONS Work Phone: LABORATORY INSPECTOR-Gurwinder OLEG LAYTNO ONS Work Phone: LABORATORY INSPECTOR-Gurwinder LAYTON ONS Work Phone: Plan of Treatment Date Care Activity Detail Author Start: 02-28-2025 Lactate dehydrogenase measurement [facility] Start: 02-28-2025 Serum inorganic phosphate measurement [facility] Start: 10-14-2024 Polysomnography [facility] Start: 09-24-2024 Basic metabolic 2008 panel with ionized calcium - Serum or Plasma [facility] Start: 09-24-2024 Magnesium measurement [facility] Start: 09-24-2024 Natriuretic peptide.B prohormone N-Terminal [Mass/volume] in Serum or Plasma [facility] Start: 09-24-2024 Vitamin B12 measurement [facility] Start: 09-24-2024 Vitamin D, 25-hydroxy measurement [facility] Start: 09-13-2024 Haptoglobin [Mass/volume] in Serum or Plasma [facility] Start: 09-13-2024 [facility] Start: 08-25-2024 Patient discharge [facility] Start: 08-25-2024 Referral to service [facility] Start: 08-24-2024 [facility] Start: 08-24-2024 Palliative care [facility] Start: 08-24-2024 End: 08-24-2024 Microbial culture, body fluid [facility] Start: 08-24-2024 Care planning and problem solving actions [facility] Start: 08-24-2024 Vital signs measurements [facility] Start: 08-24-2024 Oxygen therapy [facility] Start: 08-24-2024 Inhalation therapy procedure [facility] Start: 08-23-2024 End: 08-24-2024 [facility] Start: 08-23-2024 Application of intermittent pneumatic compression device [facility] Start: 08-23-2024 Consultation [facility] Start: 08-23-2024 Vital signs measurements [facility] Start: 08-22-2024 Following clinical pathway protocol [facility] Start: 08-22-2024 [facility] Start: 08-21-2024 Glucose measurement, body fluid [facility] Start: 08-21-2024 Following clinical pathway protocol [facility] Start: 08-21-2024 Blood culture [facility] Start: 08-21-2024 Application of elastic bandage [facility] Start: 08-21-2024 Assessment of risk of venous thromboembolism [facility] Start: 08-21-2024 Care regimes management [facility] Start: 08-21-2024 Continuous pulse oximetry [facility] Start: 08-21-2024 Elevation of affected extremity [facility] Start: 08-21-2024 Insertion of catheter into peripheral vein [facility] Start: 08-21-2024 Measuring intake and output [facility] Start: 08-21-2024 Notification of physician [facility] Start: 08-21-2024 Patient education [facility] Start: 08-21-2024 Providing care according to standard [facility] Start: 08-21-2024 Referral for physical therapy [facility] Start: 08-21-2024 Referral to occupational therapist [facility] Start: 08-21-2024 Referral to service [facility] Start: 08-21-2024 Vital signs measurements [facility] Start: 08-21-2024 End: 08-21-2024 [facility] Start: 08-21-2024 Verification routine [facility] Start: 08-21-2024 Consultation [facility] Start: 08-21-2024 Methicillin resistant Staphylococcus aureus (MRSA) DNA [Presence] in Nose by JUSTIN with probe detection [facility] Start: 08-21-2024 End: 08-21-2024 [facility] Start: 08-21-2024 Admission procedure [facility] Start: 08-21-2024 Hospital admission, emergency, from emergency room, medical nature [facility] Start: 08-21-2024 Continuous pulse oximetry [facility] Start: 08-21-2024 Dual pressure spontaneous ventilation support [facility] Start: 08-21-2024 End: 08-21-2024 [facility] Start: 07-20-2024 [facility] Start: 07-20-2024 Patient referral [place] [facility] Work Phone: Start: 07-08-2024 [facility] Start: 07-08-2024 Blood culture [facility] Start: 07-08-2024 End: 07-08-2024 [facility] Start: 07-01-2024 Measurement of respiratory function [facility] Start: 06-25-2024 Patient discharge [facility] Start: 06-24-2024 Referral to service [facility] Start: 06-22-2024 Consultation [facility] Start: 06-21-2024 Oxygen therapy [facility] Start: 06-21-2024 [facility] Start: 06-20-2024 Dual pressure spontaneous ventilation support [facility] Start: 06-20-2024 Application of intermittent pneumatic compression device [facility] Start: 06-20-2024 Following clinical pathway protocol [facility] Start: 06-20-2024 Continuous pulse oximetry [facility] Start: 06-20-2024 Assessment of risk of venous thromboembolism [facility] Start: 06-20-2024 Care regimes management [facility] Start: 06-20-2024 Catheterization of vein [facility] Start: 06-20-2024 Elevation of head of bed [facility] Start: 06-20-2024 Inhalation therapy procedure [facility] Start: 06-20-2024 Insertion of catheter into peripheral vein [facility] Start: 06-20-2024 Measuring intake and output [facility] Start: 06-20-2024 Notification of physician [facility] Start: 06-20-2024 Patient education [facility] Start: 06-20-2024 Providing care according to standard [facility] Start: 06-20-2024 Referral to occupational therapist [facility] Start: 06-20-2024 Referral to service [facility] Start: 06-20-2024 Tobacco use cessation education [facility] Start: 06-20-2024 Vital signs measurements [facility] Start: 06-20-2024 End: 06-20-2024 [facility] Start: 06-20-2024 Admission procedure [facility] Start: 04-08-2024 Patient discharge [facility] Start: 04-07-2024 Oxygen therapy [facility] Start: 04-06-2024 End: 04-07-2024 [facility] Start: 04-06-2024 Referral to gastroenterology service [facility] Start: 04-06-2024 Administration of blood product [facility] Start: 04-06-2024 Care planning and problem solving actions [facility] Start: 04-06-2024 Inhalation therapy procedure [facility] Start: 04-05-2024 Following clinical pathway protocol [facility] Start: 04-05-2024 Transfusion of blood product [facility] Start: 04-05-2024 Application of intermittent pneumatic compression device [facility] Start: 04-05-2024 Cardiac monitoring [facility] Start: 04-05-2024 Care regimes management [facility] Start: 04-05-2024 Catheterization of vein [facility] Start: 04-05-2024 Consultation [facility] Start: 04-05-2024 Continuous pulse oximetry [facility] Start: 04-05-2024 Notification of physician [facility] Start: 04-05-2024 Vital signs measurements [facility] Start: 04-05-2024 End: 04-05-2024 [facility] Start: 04-05-2024 Admission procedure [facility] Start: 06-05-2023 Diagnostic bone marrow biopsies & aspirations [facility] Start: 06-05-2023 Procedure [facility] Start: 06-05-2023 Following clinical pathway protocol [facility] Start: 06-05-2023 Catheterization of vein [facility] Start: 06-05-2023 Oxygen therapy [facility] Start: 06-05-2023 Patient discharge [facility] Start: 06-05-2023 Vital signs measurements [facility] Start: 05-09-2023 Administration of blood product [facility] Start: 05-09-2023 [facility] Start: 03-21-2023 Referral to service [facility] Start: 03-21-2023 Patient discharge [facility] Start: 03-19-2023 Care planning and problem solving actions [facility] Start: 03-17-2023 [facility] Start: 03-17-2023 [facility] Start: 03-17-2023 Vital signs measurements [facility] Start: 03-17-2023 Methicillin resistant Staphylococcus aureus screening test [facility] Start: 03-17-2023 End: 03-18-2023 [facility] Start: 03-16-2023 [facility] Start: 03-16-2023 Speech therapy assessment [facility] Start: 03-16-2023 Following clinical pathway protocol [facility] Start: 03-16-2023 Lab findings surveillance [facility] Start: 03-16-2023 [facility] Start: 03-16-2023 Application of intermittent pneumatic compression device [facility] Start: 03-16-2023 Hospital admission, emergency, from emergency room, medical nature [facility] Start: 03-16-2023 Following clinical pathway protocol [facility] Start: 03-16-2023 Assessment of risk of venous thromboembolism [facility] Start: 03-16-2023 Care regimes management [facility] Start: 03-16-2023 Catheterization of vein [facility] Start: 03-16-2023 Consultation [facility] Start: 03-16-2023 Continuous pulse oximetry [facility] Start: 03-16-2023 Documentation procedure [facility] Start: 03-16-2023 Incentive spirometry [facility] Start: 03-16-2023 Inhalation therapy procedure [facility] Start: 03-16-2023 Insertion of catheter into peripheral vein [facility] Start: 03-16-2023 Measuring intake and output [facility] Start: 03-16-2023 Microbial culture, body fluid [facility] Start: 03-16-2023 Microscopic observation [Identifier] in Body fluid by Cyto stain [facility] Start: 03-16-2023 Notification of physician [facility] Start: 03-16-2023 Oxygen therapy [facility] Start: 03-16-2023 Patient referral to dietitian [facility] Start: 03-16-2023 Providing care according to standard [facility] Start: 03-16-2023 Referral to gastroenterology service [facility] Start: 03-16-2023 Referral to occupational therapist [facility] Start: 03-16-2023 Referral to service [facility] Start: 03-16-2023 Removal of urinary catheter [facility] Start: 03-16-2023 Respiratory therapy [facility] Start: 03-16-2023 Vital signs measurements [facility] Start: 03-16-2023 End: 03-16-2023 [facility] Start: 03-16-2023 Ultrasonic guidance for thoracentesis [facility] Start: 03-16-2023 Cell count and Differential panel - Body fluid [facility] Start: 03-16-2023 Glucose measurement, body fluid [facility] Start: 03-16-2023 Verification routine [facility] Start: 03-16-2023 Admission procedure [facility] Start: 03-16-2023 End: 03-16-2023 Administration of blood product [facility] Start: 03-16-2023 End: 03-16-2023 Blood culture [facility] Start: 03-16-2023 End: 03-17-2023 [facility] Start: 03-16-2023 Leukocyte reduced red blood cells [facility] Start: 03-06-2023 Patient discharge [facility] Start: 03-04-2023 Care regimes management [facility] Start: 03-04-2023 Notification of physician [facility] Start: 03-04-2023 [facility] Start: 03-03-2023 Admission procedure [facility] Start: 03-01-2023 Referral to service [facility] Start: 03-01-2023 Administration of blood product [facility] Start: 02-28-2023 Application of intermittent pneumatic compression device [facility] Start: 02-28-2023 Administration of blood product [facility] Start: 02-28-2023 Assessment of risk of venous thromboembolism [facility] Start: 02-28-2023 Care regimes management [facility] Start: 02-28-2023 Insertion of catheter into peripheral vein [facility] Start: 02-28-2023 Measuring intake and output [facility] Start: 02-28-2023 Notification of physician [facility] Start: 02-28-2023 Oxygen therapy [facility] Start: 02-28-2023 Physiotherapy of chest [facility] Start: 02-28-2023 Providing care according to standard [facility] Start: 02-28-2023 Provision of activity privileges [facility] Start: 02-28-2023 Referral to occupational therapist [facility] Start: 02-28-2023 Referral to service [facility] Start: 02-28-2023 Following clinical pathway protocol [facility] Start: 02-28-2023 Verification routine [facility] Start: 02-28-2023 Admission procedure [facility] Start: 02-28-2023 Hospital admission, emergency, from emergency room, medical nature [facility] Start: 02-28-2023 Leukocyte reduced red blood cells [facility] Start: 02-28-2023 End: 02-28-2023 [facility] Start: 02-28-2023 End: 02-28-2023 Administration of blood product [facility] Start: 02-28-2023 [facility] Start: 02-28-2023 Inhalation therapy procedure [facility] Start: 11-18-2022 Blood chemistry [facility] Start: 11-17-2022 Patient discharge [facility] Start: 11-17-2022 End: 11-17-2022 [facility] Start: 11-17-2022 Application of elastic bandage [facility] Start: 11-16-2022 End: 11-16-2022 Administration of blood product [facility] Start: 11-16-2022 Referral to service [facility] Start: 11-16-2022 Blood chemistry [facility] Start: 11-16-2022 Complete blood count [facility] Start: 11-15-2022 Care regimes management [facility] Start: 11-15-2022 Notification of physician [facility] Start: 11-15-2022 Following clinical pathway protocol [facility] Start: 11-15-2022 Ambulation without limitation [facility] Start: 11-15-2022 Assessment of risk of venous thromboembolism [facility] Start: 11-15-2022 Insertion of catheter into peripheral vein [facility] Start: 11-15-2022 Measuring intake and output [facility] Start: 11-15-2022 Oxygen therapy [facility] Start: 11-15-2022 Providing care according to standard [facility] Start: 11-15-2022 Referral to occupational therapist [facility] Start: 11-15-2022 Referral to service [facility] Start: 11-15-2022 End: 11-15-2022 [facility] Start: 11-15-2022 Troponin I measurement [facility] Start: 11-15-2022 End: 11-15-2022 Verification routine [facility] Start: 11-15-2022 Admission procedure [facility] Start: 10-01-2022 Administration of blood product [facility] Start: 10-01-2022 [facility] Start: 09-06-2022 Administration of blood product [facility] Start: 09-06-2022 [facility] Start: 04-29-2022 Patient referral [facility] Work Phone: Start: 02-16-2022 Patient discharge [facility] Start: 02-15-2022 Referral to service [facility] Start: 02-15-2022 Consultation [facility] Start: 02-15-2022 Methicillin resistant Staphylococcus aureus screening test [facility] Start: 02-15-2022 Continuous positive airway pressure ventilation treatment [facility] Start: 02-14-2022 Following clinical pathway protocol [facility] Start: 02-14-2022 Assessment of risk of venous thromboembolism [facility] Start: 02-14-2022 Elevation of head of bed [facility] Start: 02-14-2022 Incentive spirometry [facility] Start: 02-14-2022 Inhalation therapy procedure [facility] Start: 02-14-2022 Insertion of catheter into peripheral vein [facility] Start: 02-14-2022 Measuring intake and output [facility] Start: 02-14-2022 Oxygen therapy [facility] Start: 02-14-2022 Patient education [facility] Start: 02-14-2022 Providing care according to standard [facility] Start: 02-14-2022 Provision of activity privileges [facility] Start: 02-14-2022 Referral to occupational therapist [facility] Start: 02-14-2022 Referral to service [facility] Start: 02-14-2022 [facility] Start: 02-14-2022 Verification routine [facility] Work Phone: Start: 02-14-2022 Legionella pneumophila Ag [Presence] in Urine [facility] Work Phone: Start: 02-14-2022 Streptococcus pneumoniae antigen assay [facility] Work Phone: Start: 02-14-2022 [facility] Start: 02-14-2022 Admission procedure [facility] Start: 02-14-2022 [facility] Work Phone: Start: 02-14-2022 End: 02-14-2022 Blood culture [facility] Work Phone: Start: 02-14-2022 End: 02-14-2022 [facility] Work Phone: Start: 12-11-2021 Referral to service [facility] Start: 12-11-2021 Patient discharge [facility] Start: 12-10-2021 Catheterization of vein [facility] Start: 12-10-2021 Administration of blood product [facility] Start: 12-10-2021 [facility] Start: 12-09-2021 Respiratory secretion precautions [facility] Start: 12-09-2021 Referral to gastroenterology service [facility] Start: 12-08-2021 Application of intermittent pneumatic compression device [facility] Start: 12-08-2021 Assessment of risk of venous thromboembolism [facility] Start: 12-08-2021 Care regimes management [facility] Start: 12-08-2021 Elevation of head of bed [facility] Start: 12-08-2021 Incentive spirometry [facility] Start: 12-08-2021 Inhalation therapy procedure [facility] Start: 12-08-2021 Insertion of catheter into peripheral vein [facility] Start: 12-08-2021 Introduction of urinary catheter [facility] Start: 12-08-2021 Measuring intake and output [facility] Start: 12-08-2021 Oxygen therapy [facility] Start: 12-08-2021 Patient education [facility] Start: 12-08-2021 Providing care according to standard [facility] Start: 12-08-2021 Provision of activity privileges [facility] Start: 12-08-2021 Referral to service [facility] Start: 12-08-2021 [facility] Start: 12-08-2021 Following clinical pathway protocol [facility] Start: 12-08-2021 Streptococcus pneumoniae antigen assay [facility] Work Phone: Start: 12-08-2021 [facility] Start: 12-08-2021 Verification routine [facility] Work Phone: Start: 12-08-2021 Admission procedure [facility] Start: 12-08-2021 Blood culture [facility] Work Phone: Start: 12-08-2021 [facility] Work Phone: Start: 12-08-2021 Patient referral to dietitian [facility] Start: 10-26-2021 Patient discharge [facility] Work Phone: Start: 10-25-2021 Incentive spirometry [facility] Work Phone: Start: 10-24-2021 Catheterization of vein [facility] Work Phone: Start: 10-24-2021 Transfusion of blood product [facility] Work Phone: Start: 10-24-2021 Referral to service [facility] Work Phone: Start: 10-24-2021 [facility] Work Phone: Start: 10-24-2021 Administration of blood product [facility] Work Phone: Start: 10-24-2021 Leukocyte reduced red blood cells [facility] Work Phone: Start: 10-24-2021 End: 10-25-2021 [facility] Work Phone: Start: 10-24-2021 Referral to gastroenterology service [facility] Work Phone: Start: 10-24-2021 Administration of blood product [facility] Work Phone: Start: 10-23-2021 End: 10-24-2021 [facility] Work Phone: Start: 10-23-2021 Respiratory secretion precautions [facility] Work Phone: Start: 10-23-2021 Oxygen therapy [facility] Work Phone: Start: 10-23-2021 Care regimes management [facility] Work Phone: Start: 10-23-2021 Notification of physician [facility] Work Phone: Start: 10-23-2021 Ambulation without limitation [facility] Work Phone: Start: 10-23-2021 Assessment of risk of venous thromboembolism [facility] Work Phone: Start: 10-23-2021 Catheterization of vein [facility] Work Phone: Start: 10-23-2021 Insertion of catheter into peripheral vein [facility] Work Phone: Start: 10-23-2021 Providing care according to standard [facility] Work Phone: Start: 10-23-2021 Following clinical pathway protocol [facility] Work Phone: Start: 10-23-2021 Admission procedure [facility] Work Phone: Start: 10-23-2021 End: 10-23-2021 Blood culture [facility] Work Phone: Start: 10-23-2021 Inhalation therapy procedure [facility] Work Phone: Start: 10-09-2021 Patient referral [facility] Work Phone: Start: 10-02-2021 Patient discharge [facility] Work Phone: Start: 10-02-2021 Referral to service [facility] Work Phone: Start: 10-02-2021 [facility] Work Phone: Start: 10-02-2021 Application of intermittent pneumatic compression device [facility] Work Phone: Start: 10-01-2021 Following clinical pathway protocol [facility] Work Phone: Start: 10-01-2021 Aspiration precautions [facility] Work Phone: Start: 10-01-2021 Assessment of risk of venous thromboembolism [facility] Work Phone: Start: 10-01-2021 Bacteria identified in Sputum by Culture [facility] Work Phone: Start: 10-01-2021 Bacterial nucleic acid assay [facility] Work Phone: Start: 10-01-2021 Care regimes management [facility] Work Phone: Start: 10-01-2021 Elevation of head of bed [facility] Work Phone: Start: 10-01-2021 Fall prevention [facility] Work Phone: Start: 10-01-2021 Incentive spirometry [facility] Work Phone: Start: 10-01-2021 Inhalation therapy procedure [facility] Work Phone: Start: 10-01-2021 Insertion of catheter into peripheral vein [facility] Work Phone: Start: 10-01-2021 Introduction of urinary catheter [facility] Work Phone: Start: 10-01-2021 Measuring intake and output [facility] Work Phone: Start: 10-01-2021 Methicillin resistant Staphylococcus aureus screening test [facility] Work Phone: Start: 10-01-2021 Oxygen therapy [facility] Work Phone: Start: 10-01-2021 Patient education [facility] Work Phone: Start: 10-01-2021 Providing care according to standard [facility] Work Phone: Start: 10-01-2021 Provision of activity privileges [facility] Work Phone: Start: 10-01-2021 Referral to occupational therapist [facility] Work Phone: Start: 10-01-2021 Referral to service [facility] Work Phone: Start: 10-01-2021 Taking nasal swab [facility] Work Phone: Start: 10-01-2021 [facility] Work Phone: Start: 10-01-2021 Viral nucleic acid assay [facility] Work Phone: Start: 10-01-2021 Verification routine [facility] Work Phone: Start: 10-01-2021 Streptococcus pneumoniae antigen assay [facility] Work Phone: Start: 10-01-2021 End: 10-01-2021 [facility] Work Phone: Start: 10-01-2021 Admission procedure [facility] Work Phone: Start: 10-01-2021 Blood culture [facility] Work Phone: Start: 10-01-2021 Blood culture [facility] Work Phone: Start: 08-07-2021 Patient discharge [facility] Work Phone: Start: 08-06-2021 Following clinical pathway protocol [facility] Work Phone: Start: 08-06-2021 Ambulation without limitation [facility] Work Phone: Start: 08-06-2021 Assessment of risk of venous thromboembolism [facility] Work Phone: Start: 08-06-2021 Care regimes management [facility] Work Phone: Start: 08-06-2021 Elevation of head of bed [facility] Work Phone: Start: 08-06-2021 Inhalation therapy procedure [facility] Work Phone: Start: 08-06-2021 Insertion of catheter into peripheral vein [facility] Work Phone: Start: 08-06-2021 Oxygen therapy [facility] Work Phone: Start: 08-06-2021 Patient education [facility] Work Phone: Start: 08-06-2021 Providing care according to standard [facility] Work Phone: Start: 08-06-2021 Referral to occupational therapist [facility] Work Phone: Start: 08-06-2021 Referral to service [facility] Work Phone: Start: 08-06-2021 End: 08-06-2021 [facility] Work Phone: Start: 08-06-2021 Admission procedure [facility] Work Phone: Start: 08-06-2021 Bacteria identified in Blood by Culture Blood Culture [facility] Work Phone: Start: 08-06-2021 Patient referral to dietitian [facility] Work Phone: Start: 05-20-2021 Development of care plan [facility] Work Phone: Start: 05-18-2021 Patient discharge [facility] Work Phone: Start: 05-15-2021 Referral to service [facility] Work Phone: Start: 05-14-2021 [facility] Work Phone: Start: 05-12-2021 Neurological assessment [facility] Work Phone: Start: 05-11-2021 Neurological assessment [facility] Work Phone: Start: 05-08-2021 Referral to service [facility] Work Phone: Start: 05-07-2021 Oxygen therapy [facility] Work Phone: Start: 05-05-2021 Developing a treatment plan [facility] Work Phone: Start: 05-05-2021 Development of care plan [facility] Work Phone: Start: 05-05-2021 Following clinical pathway protocol [facility] Work Phone: Start: 05-05-2021 Patient referral to dietitian [facility] Work Phone: Start: 05-04-2021 Following clinical pathway protocol [facility] Work Phone: Start: 05-04-2021 Speech therapy assessment [facility] Work Phone: Start: 05-04-2021 Admission procedure [facility] Work Phone: Start: 05-04-2021 Measuring intake and output [facility] Work Phone: Start: 05-04-2021 Patient referral to dietitian [facility] Work Phone: Start: 05-04-2021 Referral to occupational therapist [facility] Work Phone: Start: 05-04-2021 Referral to service [facility] Work Phone: Start: 05-04-2021 Vital signs measurements [facility] Work Phone: Start: 05-04-2021 [facility] Work Phone: Start: 05-04-2021 Application of antithromboembolic stockings [facility] Work Phone: Alanine aminotransfe rase [Enzymatic activity/volume] in Serum or Plasma [facility] Work Phone: Alanine aminotransfe rase [Enzymatic activity/volume] in Serum or Plasma [facility] Albumin [Mass/volume ] in Serum or Plasma [facility] Work Phone: Albumin [Mass/volume ] in Serum or Plasma [facility] Alkaline phosphatase [Enzymatic activity/volume] in Serum or Plasma [facility] Work Phone: Alkaline phosphatase [Enzymatic activity/volume] in Serum or Plasma [facility] Anion gap in Serum or Plasma [facility] Anion gap measurement [facility] Work Phone: Anion gap measurement [facility] Anion gap measurement [facility] Aspartate aminotrans ferase [Enzymatic activity/volume] in Serum or Plasma [facility] Work Phone: Aspartate aminotrans ferase [Enzymatic activity/volume] in Serum or Plasma [facility] Bacteria identified in Blood by Culture Blood Culture [facility] Work Phone: Bacteria identified in Sputum by Culture [facility] Bacteria identified in Sputum by Culture [facility] Bacteria identified in Sputum by Respiratory culture [facility] Work Phone: Bacteria identified in Unspecified specimen by Anaerobe culture [facility] Bacteria identified in Urine by Culture Urine Culture [facility] Work Phone: Bacteria identified in Urine by Culture [facility] Basic metabolic 2008 panel with ionized calcium - Serum or Plasma [facility] Basic metabolic 2008 panel with ionized calcium - Serum or Plasma [facility] Basic metabolic 2008 panel with ionized calcium - Serum or Plasma [facility] Bilirubin, total measurement [facility] Work Phone: Bilirubin, total measurement [facility] Blood culture [facility] Work Phone: Bone marrow biopsy, needle or trocar [facility] BUN/Creatinine ratio [facility] Work Phone: BUN/Creatinine ratio [facility] BUN/Creatinine ratio [facility] BUN/Creatinine ratio [facility] C reactive protein [Mass/volume] in Serum or Plasma [facility] Calcium [Mass/volume ] in Serum or Plasma [facility] Work Phone: Calcium [Mass/volume ] in Serum or Plasma [facility] Calcium [Mass/volume ] in Serum or Plasma [facility] Calcium [Mass/volume ] in Serum or Plasma [facility] Carbon dioxide, tota l [Moles/volume] in Central venous blood [facility] Carbon dioxide, tota l [Moles/volume] in Serum or Plasma [facility] Work Phone: Carbon dioxide, tota l [Moles/volume] in Serum or Plasma [facility] Carbon dioxide, tota l [Moles/volume] in Serum or Plasma [facility] CBC W Auto Different ial panel - Blood [facility] Work Phone: CBC W Auto Different ial panel - Blood [facility] CBC W Auto Different ial panel - Blood [facility] CBC W Auto Different ial panel - Blood [facility] CBC W Auto Different ial panel - Blood [facility] CBC W Auto Different ial panel - Blood [facility] CBC W Auto Different ial panel - Blood [facility] CBC W Auto Different ial panel - Blood [facility] CBC W Auto Different ial panel - Blood [facility] CBC W Auto Different ial panel - Blood [facility] CBC W Auto Different ial panel - Blood [facility] CBC W Auto Different ial panel - Blood [facility] Chloride [Moles/volu me] in Serum or Plasma [facility] Work Phone: Chloride [Moles/volu me] in Serum or Plasma [facility] Chloride [Moles/volu me] in Serum or Plasma [facility] Cobalamin (Vitamin B 12) [Mass/volume] in Serum or Plasma [facility] Comprehensive metabo lic 1999 panel - Serum or Plasma [facility] Comprehensive metabo lic 1999 panel - Serum or Plasma [facility] Comprehensive metabo lic 1999 panel - Serum or Plasma [facility] Comprehensive metabo lic 1999 panel - Serum or Plasma [facility] Comprehensive metabo lic 1999 panel - Serum or Plasma [facility] Creatinine [Mass/vol ume] in Serum or Plasma [facility] Creatinine [Moles/vo lume] in Serum or Plasma [facility] Work Phone: Creatinine [Moles/vo lume] in Serum or Plasma [facility] Creatinine [Moles/vo lume] in Serum or Plasma [facility] CT Abdomen and Pelvi s W contrast IV [facility] CT Chest [facility] CT Chest [facility] CT Chest [facility] Cytology report of B lashon fluid Cyto stain [facility] Erythrocyte mean cor puscular volume determination [facility] Erythrocyte sediment ation rate [facility] Erythropoietin (EPO) [Units/volume] in Serum or Plasma [facility] Erythropoietin (EPO) [Units/volume] in Serum or Plasma [facility] Exercise tolerance test [facility] Ferritin [Mass/volum e] in Serum or Plasma [facility] Work Phone: Ferritin [Mass/volum e] in Serum or Plasma [facility] Ferritin [Mass/volum e] in Serum or Plasma [facility] Ferritin [Mass/volum e] in Serum or Plasma [facility] Ferritin [Mass/volum e] in Serum or Plasma [facility] Ferritin [Mass/volum e] in Serum or Plasma [facility] Ferritin [Mass/volum e] in Serum or Plasma [facility] Ferritin [Mass/volum e] in Serum or Plasma [facility] Ferritin [Mass/volum e] in Serum or Plasma [facility] Ferritin [Mass/volum e] in Serum or Plasma [facility] Folate [Mass/volume] in Serum or Plasma [facility] Folate [Mass/volume] in Serum or Plasma [facility] Folate [Moles/volume ] in Serum or Plasma [facility] Folate [Moles/volume ] in Serum or Plasma [facility] Glucose [Mass/volume ] in Serum or Plasma [facility] Work Phone: Glucose [Mass/volume ] in Serum or Plasma [facility] Glucose [Mass/volume ] in Serum or Plasma [facility] Glucose [Mass/volume ] in Serum or Plasma [facility] Haptoglobin [Mass/vo lume] in Serum or Plasma [facility] Hematocrit [Volume F raction] of Blood [facility] Work Phone: Hematocrit [Volume F raction] of Blood [facility] Hematocrit [Volume F raction] of Blood [facility] Hematocrit [Volume F raction] of Blood [facility] Hematocrit [Volume F raction] of Blood [facility] Hematocrit [Volume F raction] of Blood [facility] Hemoglobin [Mass/vol ume] in Blood [facility] Work Phone: Hemoglobin [Mass/vol ume] in Blood [facility] Hemoglobin [Mass/vol ume] in Blood [facility] Hemoglobin [Mass/vol ume] in Blood [facility] Hemoglobin [Mass/vol ume] in Blood [facility] Hemoglobin [Mass/vol ume] in Blood [facility] Hemoglobin [Mass/vol ume] in Blood [facility] Hemoglobin A1c/Hemoglobin.total in Blood [facility] Work Phone: Iron and Iron bindin g capacity panel - Serum or Plasma [facility] Work Phone: Iron and Iron bindin g capacity panel - Serum or Plasma [facility] Iron and Iron bindin g capacity panel - Serum or Plasma [facility] Iron and Iron bindin g capacity panel - Serum or Plasma [facility] Iron and Iron bindin g capacity panel - Serum or Plasma [facility] Iron and Iron bindin g capacity panel - Serum or Plasma [facility] Iron and Iron bindin g capacity panel - Serum or Plasma [facility] Iron and Iron bindin g capacity panel - Serum or Plasma [facility] Iron and Iron bindin g capacity panel - Serum or Plasma [facility] Iron and Iron bindin g capacity panel - Serum or Plasma [facility] Iron and Iron bindin g capacity panel - Serum or Plasma [facility] Lactate dehydrogenas e [Enzymatic activity/volume] in Body fluid by Pyruvate to lactate reaction [facility] Lactate dehydrogenas e [Enzymatic activity/volume] in Body fluid by Pyruvate to lactate reaction [facility] Lactate dehydrogenas e measurement [facility] Work Phone: Lactate dehydrogenas e measurement [facility] Lactate dehydrogenas e measurement [facility] Lactate dehydrogenas e measurement [facility] Lactate dehydrogenas e measurement [facility] Lactate dehydrogenas e measurement [facility] Lactate dehydrogenas e measurement [facility] Lactate dehydrogenas e measurement [facility] Lactate dehydrogenas e measurement [facility] Legionella pneumophi la Ag [Presence] in Urine [facility] Work Phone: Leukocytes [#/volume ] in Blood [facility] Work Phone: Leukocytes [#/volume ] in Blood [facility] Leukocytes [#/volume ] in Blood [facility] Lipid 1996 panel - S bev or Plasma [facility] Magnesium [Mass/volu me] in Serum or Plasma [facility] Magnesium measurement [facility] Magnesium measurement [facility] Magnesium measurement [facility] Magnesium measurement [facility] Magnesium measurement [facility] Mean corpuscular hem oglobin concentration determination [facility] Work Phone: Mean corpuscular hem oglobin concentration determination [facility] Mean corpuscular hem oglobin concentration determination [facility] Mean corpuscular hem oglobin determination [facility] Work Phone: Mean corpuscular hem oglobin determination [facility] Mean corpuscular hem oglobin determination [facility] Measurement of occul t blood in stool specimen using immunoassay [facility] Measurement of occul t blood in stool specimen using immunoassay [facility] Measurement of renal function [facility] Work Phone: Measurement of renal function [facility] Measurement of renal function [facility] Measurement of renal function [facility] Measurement of respi ratory function [facility] Measurement of respi ratory function [facility] Microscopic observat ion [Identifier] in Unspecified specimen by Gram stain Gram Stain [facility] Work Phone: Microscopic urinalysis [facility] Natriuretic peptide. B prohormone N-Terminal [Mass/volume] in Serum or Plasma [facility] Neutrophil count [facility] Work Phone: Neutrophil count [facility] Neutrophil percent differential count [facility] Work Phone: Neutrophil percent differential count [facility] Organism count, micr oscopic method [facility] Patient Education [facility] Work Phone: Patient referral [facility] Work Phone: Platelets [#/volume] in Blood [facility] Work Phone: Platelets [#/volume] in Blood [facility] Platelets [#/volume] in Blood [facility] Polysomnography [facility] Potassium [Moles/vol ume] in Serum or Plasma [facility] Work Phone: Potassium [Moles/vol ume] in Serum or Plasma [facility] Potassium [Moles/vol ume] in Serum or Plasma [facility] Potassium measurement [facility] Prostate specific an tigen measurement [facility] Protein [Mass/volume ] in Body fluid [facility] Protein [Mass/volume ] in Body fluid [facility] Red blood cell count [facility] Work Phone: Red blood cell count [facility] Red blood cell count [facility] Red cell distributio n width determination [facility] Work Phone: Red cell distributio n width determination [facility] Red cell distributio n width determination [facility] Respiratory Culture Respiratory Culture [facility] Work Phone: Respiratory microbial culture Respiratory Culture [facility] Work Phone: Respiratory pathogen s DNA and RNA 12b panel - Unspecified specimen by JUSTIN with probe detection [facility] Work Phone: Reticulocyte count [facility] Work Phone: Reticulocyte count [facility] Serum chloride measurement [facility] Serum inorganic phos phate measurement [facility] Serum inorganic phos phate measurement [facility] Sodium [Moles/volume ] in Serum or Plasma [facility] Work Phone: Sodium [Moles/volume ] in Serum or Plasma [facility] Sodium [Moles/volume ] in Serum or Plasma [facility] Sodium measurement [facility] Streptococcus pneumo niae antigen assay [facility] Work Phone: Thyroid stimulating hormone measurement [facility] Total protein measurement [facility] Work Phone: Total protein measurement [facility] Troponin T.cardiac [Mass/volume] in Serum or Plasma by High sensitivity method [facility] Troponin T.cardiac [Mass/volume] in Serum or Plasma by High sensitivity method [facility] Urea nitrogen [Mass/ volume] in Serum or Plasma [facility] Work Phone: Urea nitrogen [Mass/ volume] in Serum or Plasma [facility] Urea nitrogen [Mass/ volume] in Serum or Plasma [facility] Urea nitrogen [Mass/ volume] in Serum or Plasma [facility] Urine culture [facility] Urine microscopy: ep ithelial cells [facility] Urine microscopy: red cells [facility] Heart limited [facility] Vitamin B12 measurement [facility] Vitamin B12 measurement [facility] Vitamin B12 measurement [facility] Vitamin B12 measurement [facility] Vitamin B12 measurement [facility] Vitamin D, 25-hydrox y measurement [facility] White blood cell count [facility] XR Chest PA and Lateral [facility] Work Phone: [facility] Immunizations Immunization Date Immunization Notes Care Provider Fa cility 03-01-2023 Influenza High-Dose Quadrivalent Dr. Donna Will Work Phone: [facility] 01-08-2022 influenza, injectabl e, quadrivalent, preservative free [employer] Work Phone: [facility] 01-08-2022 influenza, seasonal, injectable [employer] Work Phone: [facility] 05-09-2021 pneumococcal conjuga te vaccine, [address] Donna Will Work Phone: [facility] 12-22-2020 Covid (Pfizer) Dr. Donna mckeon Work Phone: [facility] 11-24-[address] Donna Will Work Phone: [facility] 11-24-2020 Dr. Donna pollock MD Work Phone: [facility] 05-19-2020 Covid (Pfizer) Dr. Donna mckeon Work Phone: [facility] 04-27-2020 Covid (Pfizer) Dr. Donna mckeon Work Phone: [facility] 11-25-[address] Page Will Work Phone: [facility] Work Phone: 11-25-2011 pneumococcal vaccine , unspecified formulation Dr. Donna Will Work Phone: [facility] Payers Date Payer Category Payer Medicare [id number] 2021 Self-pay [id number] Medicare [id number] Unknown [id number] 2.16.8 40.1.998739.3.579.2.462 Unknown [id number] 2.16.8 40.1.576886.3.579.2.462 Unknown [id number] 2.16.8 40.1.311147.3.579.2.462 Unknown [id number] 2.16.8 40.1.808996.3.579.2.462 Unknown [id number] 2.16.8 40.1.942397.3.579.2.462 Unknown [id number] 2.16.8 40.1.508886.3.579.2.462 Unknown [id number] 2.16.8 40.1.654025.3.579.2.462 Unknown [id number] 2.16.8 40.1.565931.3.579.2.462 Unknown [id number] 2.16.8 40.1.489407.3.579.2.462 Unknown [id number] 2.16.8 40.1.443881.3.579.2.462 Unknown [id number] 2.16.8 40.1.296853.3.579.2.462 Unknown [id number] 2.16.8 40.1.331848.3.579.2.462 Unknown [id number] 2.16.8 40.1.218073.3.579.2.462 Unknown [id number] 2.16.8 40.1.030688.3.579.2.462 Unknown [id number] 2.16.8 40.1.061665.3.579.2.462 Unknown [id number] 2.16.8 40.1.930103.3.579.2.462 Unknown [id number] 2.16.8 40.1.871363.3.579.2.462 Unknown [id number] 2.16.8 40.1.151295.3.579.2.462 Unknown [id number] 2.16.8 40.1.070798.3.579.2.462 Unknown [id number] 2.16.8 40.1.031195.3.579.2.462 Unknown [id number] 2.16.8 40.1.969320.3.579.2.462 Unknown [id number] 2.16.8 40.1.978372.3.579.2.462 Unknown [id number] 2.16.8 40.1.137763.3.579.2.462 Unknown [id number] 2.16.8 40.1.643180.3.579.2.462 Unknown [id number] 2.16.8 40.1.995187.3.579.2.462 Unknown [id number] 2.16.8 40.1.628729.3.579.2.462 Unknown [id number] 2.16.8 40.1.663169.3.579.2.462 Unknown [id number] 2.16.8 40.1.016962.3.579.2.462 Unknown [id number] 2.16.8 40.1.604060.3.579.2.462 Unknown [id number] 2.16.8 40.1.530331.3.579.2.462 Unknown [id number] 2.16.8 40.1.928772.3.579.2.462 Unknown [id number] 2.16.8 40.1.211302.3.579.2.462 Unknown [id number] 2.16.8 40.1.195883.3.579.2.462 Unknown [id number] 2.16.8 40.1.659567.3.579.2.462 Unknown [id number] 2.16.8 40.1.464143.3.579.2.462 Unknown [id number] 2.16.8 40.1.313944.3.579.2.462 Unknown [id number] 2.16.8 40.1.790192.3.579.2.462 Unknown [id number] 2.16.8 40.1.150918.3.579.2.462 Unknown [id number] 2.16.8 40.1.999284.3.579.2.462 Unknown [id number] 2.16.8 40.1.112948.3.579.2.462 Unknown [id number] 2.16.8 40.1.119486.3.579.2.462 Unknown [id number] 2.16.8 40.1.881880.3.579.2.462 Unknown [id number] 2.16.8 40.1.158691.3.579.2.462 Unknown [id number] 2.16.8 40.1.275712.3.579.2.462 Unknown [id number] 2.16.8 40.1.956903.3.579.2.462 Unknown [id number] 2.16.8 40.1.899821.3.579.2.462 Unknown [id number] 2.16.8 40.1.228694.3.579.2.462 Unknown [id number] 2.16.8 40.1.364251.3.579.2.462 Unknown [id number] 2.16.8 40.1.660956.3.579.2.462 Unknown [id number] 2.16.8 40.1.534324.3.579.2.462 Unknown [id number] 2.16.8 40.1.554585.3.579.2.462 Unknown [id number] 2.16.8 40.1.728326.3.579.2.462 Unknown [id number] 2.16.8 40.1.623096.3.579.2.462 Unknown [id number] 2.16.8 40.1.131092.3.579.2.462 Unknown [id number] 2.16.8 40.1.173839.3.579.2.462 Unknown [id number] 2.16.8 40.1.543696.3.579.2.462 Unknown [id number] 2.16.8 40.1.278157.3.579.2.462 Unknown [id number] 2.16.8 40.1.922464.3.579.2.462 Unknown [id number] 2.16.8 40.1.103142.3.579.2.462 Unknown [id number] 2.16.8 40.1.545182.3.579.2.462 Social History Date Type Detail Facility Start: 05-29-2021 End: 06-05-2023 Tobacco smoking status NHIS Unknown if ever smoked [facility] Start: 03-14-2021 Occasional [facility] Start: 03-14-2021 None [facility] Start: 03-14-2021 Cigarettes [facility] Start: 1950 Sex Assigned At Male [facility] Start: 1950 Sex Assigned At Not on file [facility] Gender identity Not on file [facility] Start: 06-23-2024 End: 08-21-2024 Tobacco smoking status NHIS Current some day smoker [facility] Start: 06-30-2024 Sex Male (finding) [facility] Start: 08-24-2024 Tobacco smoking stat us CTIS Ex-smoker (finding) [facility] Medical Equipment Procedure Code Equipment Code Equipment Origin al Text Equipment Identifier Dates EGD, with monitored anesthesia care [id number] FDA Start: 04-06-2024 Goals Date Patient Goal Desired Activity /State Functional Status Date Assessment Result Facility 08-25-2024 Functional status Chair [facility] Work Phone: 06-25-2024 Functional status Standby Assist [facility] Work Phone: 06-24-2024 Functional status Ambulates;Stand with Ur inal [facility] Work Phone: 04-08-2024 Functional status Ambulates;Stand with Ur inal [facility] Work Phone: 03-21-2023 Functional status Ambulates;Basilio r;Bathroom Privilege [facility] Work Phone: 03-06-2023 Functional status Ambulates;Bath room Privilege;Active Range of Motion;Stand with Urinal [facility] Work Phone: 11-17-2022 Functional status Ambulates;Bathroom Priv ilege [facility] Work Phone: 02-16-2022 Functional status Chair [facility] Work Phone: 12-11-2021 Functional status Ambulates [facility] Work Phone: 10-26-2021 Functional status Ambulates [facility] Work Phone: 10-02-2021 Functional status Ambulates [facility] Work Phone: 10-01-2021 Functional status Tolerates Activity Well [facility] Work Phone: 08-07-2021 Functional status Patient Activity Chair [facility] Work Phone: 08-07-2021 Functional status Activity Abili ty With Assist of 1 [facility] Work Phone: 08-06-2021 Functional status Activity Abili ty With Assist of 2 [facility] Work Phone: 05-18-2021 Functional status With Assist of 1 [facility] Work Phone: 05-15-2021 Functional status Chair [facility] Work Phone: 05-04-2021 Functional status Ambulates;Chair [facility] Work Phone: 04-28-2021 Functional status With Assist of 2 [facility] Work Phone: 04-27-2021 Functional status Chair [facility] Work Phone: 04-26-2021 Functional status Chair [facility] Work Phone: 04-11-2021 Functional status Ambulates [facility] Work Phone: 03-25-2021 Functional status Chair [facility] Work Phone: Mental Status Date Assessment Result Facility 08-25-2024 Cognitive function Voice/Name [facility] Work Phone: 08-03-2024 Cognitive function Voice/Name [facility] Work Phone: 07-08-2024 Cognitive function Awake;Alert;A ppropriate;Follow s Commands [facility] Work Phone: 06-25-2024 Cognitive function Voice/Name [facility] Work Phone: 05-27-2024 Cognitive function Awake;Alert;A ppropriate;Follow s Commands [facility] Work Phone: 05-20-2024 Cognitive function Voice/Name [facility] Work Phone: 04-08-2024 Cognitive function Voice/Name [facility] Work Phone: 06-05-2023 Cognitive function Voice/Name [facility] Work Phone: 05-09-2023 Cognitive function Awake;Alert;A ppropriate;Follow s Commands [facility] Work Phone: 03-21-2023 Cognitive function Voice/Name [facility] Work Phone: 03-16-2023 Cognitive function Awake;Alert;Follows Co mmands [facility] Work Phone: 03-06-2023 Cognitive function Voice/Name [facility] Work Phone: 02-06-2023 Cognitive function Voice/Name [facility] Work Phone: 01-30-2023 Cognitive function Awake;Alert;A ppropriate;Follow s Commands [facility] Work Phone: 12-16-2022 Cognitive function Arousable To Voice/Nam e [facility] Work Phone: 11-17-2022 Cognitive function Voice/Name [facility] Work Phone: 11-08-2022 Cognitive function Voice/Name [facility] Work Phone: 05-13-2022 Cognitive function Awake;Alert;A ppropriate;Follow s Commands [facility] Work Phone: 05-06-2022 Cognitive function Arousable To Voice/Nam e [facility] Work Phone: 02-16-2022 Cognitive function Appropriate;Cooperativ e [facility] Work Phone: 01-28-2022 Cognitive function Voice/Name [facility] Work Phone: 01-14-2022 Cognitive function Voice/Name [facility] Work Phone: 12-11-2021 Cognitive function Touch/Shaking [facility] Work Phone: 10-26-2021 Cognitive function Voice/Name [facility] Work Phone: 10-02-2021 Cognitive function Voice/Name [facility] Work Phone: 08-07-2021 Cognitive function Level Of Cons ciousness Awake;Alert;Appropriate;Follow s Commands [facility] Work Phone: 08-07-2021 Cognitive function Appropriate;C ooperative;Aggres iane [facility] Work Phone: 08-06-2021 Cognitive function Patient Origlo diana Person;Place;Time [facility] Work Phone: 08-06-2021 [facility]: 08-06-2021 Cognitive function Level Of Cons ciousness Awake;Alert;Appropriate;Follow s Commands [facility] Work Phone: 05-18-2021 Cognitive function Voice/Name [facility] Work Phone: 05-12-2021 Cognitive function Appropriate;[facility] Work Phone: 05-03-2021 Cognitive function Voice/Name [facility] Work Phone: 04-28-2021 Cognitive function Voice/Name [facility] Work Phone: 04-26-2021 Cognitive function Appropriate;[facility] Work Phone: 04-25-2021 Cognitive function Voice/Name [facility] Work Phone: 04-11-2021 Cognitive function Voice[facility] Work Phone: 03-25-2021 Cognitive function Voice/Name [facility] Work Phone: Clinical Notes 04-24-2021 to 08-25-2024 Note Date & Type Note Facility 08-25-2024 Hospital Discharg e instructions Additional Instructions Date of Discharge: 08/25/24 [facility] Work Phone: 08-25-2024 Discharge summary Note Date/Time August 25, 2024 3:03p grace [facility] Medical Records Department [address] [place] [id number] Instructions for Home/Discharge Instructions 08/25/24 1108 MR#: [id number] Acct: [id number] Name: SAL ALONZO Jr. Rep #:[id number] : [id number] 73 From: Clive Panchal PCP: [...] Goel; Farida Todd; Linda Huizar; Katelynn Greenberg LABORATORY INSPECTOR; Ashleigh Mcconnell Discharge Orders/Prescriptions Prescriptions: New atorvastatin [...] Instructions: As directed (DME) FreeStyle Basilio 3 [place] Misc See Rx Instructions .Route Qty: 1 [...] can be placed): Home Health Service 08/25/24 2323<Electronically signed by Clive Sharp MD>Clive Sharp MD CC: LABORATORY INSPECTORChas Huizar; LABORATORY INSPECTOR-C Katelynn Greenberg; Dr. Cisco Cortés MD; Dr. [...] MD; Dr. Kee York MD; Dr. Ashanti Dugan MD; Dr. Rajeev Dalton MD; Dr. Mitch Pinzon MD; Dr. Roberto Escalante MD; Dr. Yolie Zapata MD; Dr. Leyda Fischer MD; Dr. Nikolai Keller DO; Dr. Dao Avila DO; Dr. Madi Tavarez MD; Dr. Zhang Concepcion MD; Dr. Claudine Andrade MD; YANELIS Ley ~ [facility] Work Phone: 1(441) 627-907107-02-2025 Radiology Diagnostic study [facility]07-01-2025 Consult note Author Kee [facility] Note Date/Time August 24, 2024 2:23p [facility] Medical Records Department [address] [place] [address] Consultation - Infectious Dx 08/24/24 1419 MR#: [id number] Acct: [id number] Name: SAL ALONZO Andre Roper Rep #:[id number] : 1950 73 From: Kee York MD PCP: Dr. Donna Will MD Status:ADM IN Location: [place] [address] Assessment & Plan Assessment/Plan (1) Acute and [...] No fevers at home. No gastrointestinal distress. [facility] Medical History MRSA (methicillin resistant staph aureus) [...] cell carcinoma Atherosclerosis of coronary artery of [place] heart without angina pectoris Pneumonia Non-Hodgkin lymphoma [...] U-100 100 unit/mL See Protocol subcut A [facility] high 11/12/23 07/07/24 Rx (3 mL) subcutaneous pen blood glucose 1 month #15 mL needle (disp) 32 gauge 32 gauge x #100 ea 11/12/23 Unk nown Rx 07/09 (Easy Touch Hypodermic Needle) pen needle, diabetic 32 gauge x #100 ea 12/03/23 Unkno wn Rx 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 sensor (FreeStyle #1 ea 12/24/23 Unknown Rx Basilio 3 Sensor device) 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,raw sampler,cont #1 ea 12/24/23 Unknown Rx (FreeStyle Basilio 3 [place]) furosemide 40 mg tablet (Lasix) 20 mg [...] 70.6 H, Lymph % (Auto) 16.5 L, [place] % (Auto) 10.1 H, Eos % (Auto) [...] (Auto) 68.6, Lymph % (Auto) 16.2 L, [place] % (Auto) 11.1 H, Eos % (Auto) [...] WBCs % 66.6, Fluid Neutrophils 47, Fluid Oamniwoojgp66, Fluid Monocytes 7, Fluid Macrophages 10, Fld [...] right thoracentesis. Laboratory results pending. Reading Location: [place] [address] 08/24/24 142 <Electronically signed by Kee York MD> Cosigner Signature (if applicable): CC: Dr. Donna Will MD~ Signed [facility] Work Phone: 1(733) 883-287307-01-2025 Progress note Author Clive Sharp [facility] Note Date/Time August 24, 2024 1:24p m [facility] Medical Records Department [address] [place] [address] Progress Note - Hospitalist 08/24/24 1152 MR#: [id number] Acct: [id number] Name: SAL ALONZO Jr. Rep #:[id number] : 1950 73 From: Clive Pnachal PCP: Dr. Donna Will MD Status:ADM IN Location: [place] [address] Reason for Visit Reason for Visit: Diagnoses [...] 70.6 H, Lymph % (Auto) 16.5 L, [place] % (Auto) 10.1 H, Eos % (Auto) [...] (Auto) 68.6, Lymph % (Auto) 16.2 L, [place] % (Auto) 11.1 H, Eos % (Auto) [...] right thoracentesis. Laboratory results pending. Reading Location: [place] [address] Physical Exam Narrative Seen and examined. Patient [...] chronic mild CO2 retention. Continue BiPAP support. Steel Barrel Reamer consulted. 08/22: Discussed with the bobbin cleaner hand Dr. Berg yesterday. consult reviewed. Usually, previous [...] a heater probe. Clip was placed. Clip backend java developer: [employer]inelOne. 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 8. Chronic CAD [...] will or advanced directive. His power of family law attorney for healthcare his but also with son [...] shock if needed Total time spent in npfn-ov-oscq encounter in discussion of advanced directive 17 [...] 70.6 H, Lymph % (Auto) 16.5 L, [place] % (Auto) 10.1 H, Eos % (Auto) [...] (Auto) 68.6, Lymph % (Auto) 16.2 L, [place] % (Auto) 11.1 H, Eos % (Auto) [...] not excluded within the right lower lobe. Vtvy-jb-tflymfln pulmonary edema. Median sternotomy wires. Cardiac silhouette is unchanged. No pneumothorax. Reading Location: [facility] Charges/Coding Visit Charges Inpatient E&M: 74680 [facility] Hosp L2 08/24/24 1324 <Electronically signed by Clive Shapr MD> Cosigner Signature (if applicable): CC: ~ Signed [facility] Work Phone: 1(997) 999-202807-01-2025 Radiology Diagnostic study [facility]06-30-2025 Consult note Author Veronica Coughlin [facility] Note Date/Time August 23, 2024 5:05 pm [facility] Medical Records Department [address] [place] [address] Pharmacokinetic/Renal -Consult 08/23/24 1701 MR#: [id number] Acct: [id number] Name: SAL ALONZO Andre Roper Rep #:[id number] : 1950 73 From: Veronica Roy PCP: Dr. Donna Will MD Status:ADM IN Y Location: [facility] [id number] Consult Antibiotic Management Pharmacy has been [...] and time ordered]: 08/25/24 @ 0400 08/23/24 0755 <Electronically signed by Veronica Coughlin> Date _ Veronica Coughlin Cosigner Signature (if applicable): Date CC: ~ Signed [facility] Work Phone: 1(716) 173-134906-30-2025 Progress note Author Clive Sharp [facility] Note Date/Time August 23, 2024 2:24 pm [facility] Medical Records Department [address] [place] [address] Progress Note - Hospitalist 08/23/2404 MR#: [id number] Acct: [id number] Name: CHERISAL Jr. Rep #:[id number] : 1950 73 From: Clive Panchal PCP: Dr. 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 Patient on his baseline 4 L of oxygen. Is scheduled for right-sided thoracocentesis today. Was evaluated by bobbin cleaner hand and discussed with him. BiPAP was changed [...] chronic mild CO2 retention. Continue BiPAP support. Steel Barrel Reamer consulted. 08/22: Discussed with the bobbin cleaner hand Dr. Berg yesterday. consult reviewed. Usually, previous [...] a heater probe. Clip was placed. Clip backend java developer: SentinelOne. 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 8. Chronic CAD [...] will or advanced directive. His power of family law attorney for healthcare his but also with son [...] shock if needed Total time spent in aqoo-aq-rqjm encounter in discussion of advanced directive 17 [...] not excluded within the right lower lobe. Gjnh-ae-ihuvsyno pulmonary edema. Median sternotomy wires. Cardiac silhouette is unchanged. No pneumothorax. Reading Location: [facility] Charges/Coding Visit Charges Inpatient E&M: 60801 Subs Hosp L2 08/23/24 1424 <Electronically signed by Clive Sharp MD> Cosigner Signature (if applicable): CC: ~ Signed [facility] Work Phone: 1(285) 259-746506-29-2025 Progress note Author Clive Sharp [facility] Note Date/Time August 22, 2024 12:5 0pm [facility] Medical Records Department [address] [place] [address] Progress Note - Hospitalist 08/22/24 7858 MR#: [id number] Acct: [id number] Name: CHERISAL Jr. Rep #:[id number] : 1950 73 From: Clive Panchal PCP: [...] 71.0 H, Lymph % (Auto) 15.2 L, [place] % (Auto) 10.5 H, Eos % (Auto) [...] Sens 97 H*, [place] [address] H, Total Protein 6.2, Albumin 3.5, Globulin2.7, Albumin/Globulin Ratio 1.3 08/21/24 11:59: Urine Color Yellow, Urine Clarity Cloudy, Urine pH 6.5, Ur Specific [place] 1.010, Urine Protein 30 H, Urine Glucose [...] 80.4 H, Lymph % (Auto) 14.1 L, [place] % (Auto) 4.1, Eos % (Auto) 0.0, [...] not excluded within the right lower lobe. Fgnt-ok-drnetito pulmonary edema. Median sternotomy wires. Cardiac silhouette is unchanged. No pneumothorax. Reading Location: [facility] Physical Exam Narrative Seen and examined. Patient on his baseline 4 L of oxygen. Was evaluated by bobbin cleaner hand yesterday and discussed with him. BiPAP was [...] chronic mild CO2 retention. Continue BiPAP support. Steel Barrel Reamer consulted. 08/22: Discussed with the bobbin cleaner hand Dr. Berg yesterday. consult reviewed. Usually, previous [...] a heater probe. Clip was placed. Clip backend java developer: [employer]inelOne. 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 8. Chronic CAD [...] will or advanced directive. His power of family law attorney for healthcare his but also with son [...] shock if needed Total time spent in qiom-ge-kevc encounter in discussion of advanced directive 17 [...] 71.0 H, Lymph % (Auto) 15.2 L, [place] % (Auto) 10.5 H, Eos % (Auto) [...] Sens 97 H*, [place] [address] H, Total Protein 6.2, Albumin 3.5, Globulin2.7, Albumin/Globulin Ratio 1.3 08/21/24 11:28: Urine Color Cancelled, Urine Clarity Cancelled, Urine pH Cancelled, Ur Specific [place] Cancelled, U Specif Grav (Refrac) Cancelled, Urine [...] Clarity Cloudy, Urine pH 6.5, Ur Specific [place] 1.010, Urine Protein 30 H, Urine Glucose [...] 80.4 H, Lymph % (Auto) 14.1 L, [place] % (Auto) 4.1, Eos % (Auto) 0.0, [...] not excluded within the right lower lobe. Xzxq-dc-ricmgkxy pulmonary edema. Median sternotomy wires. Cardiac silhouette is unchanged. No pneumothorax. Reading Location: [id number] Charges/Coding Visit Charges Inpatient E&M: 13376 Subs Hosp L3 08/22/24 0849 <Electronically signed by Clive Sharp MD> Cosigner Signature (if applicable): CC: ~ Signed ADDENDUM by Dr. 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 Therefore most likely patient has gram-negative luiza pneumonia. 08/22/24 1250<Electronically signed by Clive Sharp MD> Cosigner Signature (if applicable): cc: ~* Signed [facility] Work Phone: [phone] 434-325706-28-2025 Consult note Author Kashif Berg [facility] Note Date/Time August 21, 2024 5:31 pm [facility] Medical Records Department [address] [place] [address] Consultation - Steel Barrel Reamer 08/21/24 1719 MR#: [id number] Acct: [id number] Name: SAL ALONZO Rep #:[id number] : 1950 73 From: Kashif Berg MD PCP: Dr. Donna Will MD Status:ADM [...] on 4Lpm NC O2 and in NAD. [facility] Medical History MRSA (methicillin resistant staph aureus) [...] cell carcinoma Atherosclerosis of coronary artery of [place] heart without angina pectoris Pneumonia Non-Hodgkin lymphoma [...] 12/24/23 Unknown Rx Basilio 3 Sensor device) 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,raw sampler,cont #1 ea 12/24/23 Unknown Rx (FreeStyle Basilio 3 [place]) furosemide 40 mg tablet (Lasix) 20 mg [...] 3 Ml Ampul.Neb INHALATION 3 ml Q4H.RT [facility] Administration Atorvastatin Calcium 40 mg 08/21/24 22:00 Atorvastatin Calcium 40 Mg Tablet PO QHS [facility] Azithromycin 500 mg 08/22/24 10:00 Azithromycin 250 Mg Tablet PO 08/23/24 10:01 Q24 [facility] Bumetanide 2 mg 08/21/24 14:00 08/21/24 15:09 Bumetanide 1 Mg/4 Ml Vial IV 2 mg Q8H AJIT Administration Carvedilol 3.125 mg 08/21/24 17:00 Carvedilol 3.125 Mg Tablet PO BIDCM [facility] Protocol Cholecalciferol 50 mcg 08/22/24 08:00 Cholecalciferol (Vit D3) 25 Mcg Tablet (1,000 Units) [facility] Enoxaparin Sodium 40 mg 08/21/24 13:53 08/21/24 15:08 Enoxaparin 40 Mg/0.4 Ml Syringe SC 40 mg Q24 AJIT Administration Escitalopram Oxalate 10 mg 08/22/24 10:00 Escitalopram Oxalate 10 Mg Tablet PO DAILY [facility] Ferrous Sulfate 325 mg 08/22/24 12:00 Ferrous Sulfate 325 Mg Tablet PO QODAY@1200 [facility] Finasteride 5 mg 08/22/24 10:00 Finasteride 5 Mg Tablet PO DAILY [facility] Glucagon 1 mg 08/21/24 13:53 Glucagon 1 Mg/Ml Syringe IM X1 PRN Hypoglycemia Protocol Dextrose 250 mls @ 0 mls/hr 08/21/24 13:53 Dextrose 10%-Water IV .Q0M PRN HYPOGLYCEMIA Protocol As Directed Sodium Chloride 250 mls @ 15 mls/hr 08/21/24 14:08 IV .[id number] PRN Saline Flush Sodium Chloride 250 mls @ 15 mls/hr 08/21/24 14:08 IV .[id number] PRN Additional IVPB Infusion Insulin Glargine 20 unit 08/21/24 17:00 Insulin Glargine-Yfgn 100 Unit/Ml Pen SC BIDCM [facility] Insulin Human Lispro 0 unit 08/21/24 16:00 Insulin Lispro 100 Unit/Ml Insuln.Pen SC ACHS [facility] Protocol Methylprednisolone Sodium Succinate 40 mg 08/21/24 22:00 Methylprednisolone Sod Succ 40 Mg/Ml Vial IV Q8 [facility] Mirtazapine 7.5 mg 08/21/24 22:00 Mirtazapine 15 Mg Tablet PO QHS [facility] Multivitamins 1 tablet 08/22/24 08:00 Multivitamins,Therapeutic Tablet [facility] Nitroglycerin 0.4 mg 08/21/24 13:53 Nitroglycerin (Inpatient Use) 0.4 Mg Tab.Subl SL Q5M PRN CARDIAC/CHEST PAIN Pantoprazole Sodium 40 mg 08/21/24 22:00 Pantoprazole Sodium 40 Mg Tablet PO BID [facility] Prochlorperazine Edisylate 5 mg 08/21/24 13:53 Prochlorperazine 10 Mg/2 Ml Vial IV Q4H PRN PRN Breakthrough Nausea/Vomiting Senna/Docusate Sodium 2 tablet 08/21/24 22:00 Senna/Docusate Sodium 1 Tablet PO BID [facility] Sodium Chloride 10 - 40 ml 08/21/24 14:08 0.9% Saline Lock 10 Ml Syringe IV UD PRN SALINE FLUSH Tamsulosin HCl 0.4 mg 08/21/24 22:00 Tamsulosin Hcl 0.4 Mg Capsule PO QHS [facility] Physical Exam Const alert, oriented x3 and [...] 71.0 H, Lymph % (Auto) 15.2 L, [place] % (Auto) 10.5 H, Eos % (Auto) [...] Sens 97 H*, [place] [address] H, Total Protein 6.2, Albumin 3.5, Globulin2.7, Albumin/Globulin Ratio 1.3 08/21/24 11:28: Urine Color Cancelled, Urine Clarity Cancelled, Urine pH Cancelled, Ur Specific [place] Cancelled, U Specif Grav (Refrac) Cancelled, Urine [...] Clarity Cloudy, Urine pH 6.5, Ur Specific [place] 1.010, Urine Protein 30 H, Urine Glucose [...] not excluded within the right lower lobe. Fvsi-lx-fqkizpxl pulmonary edema. Median sternotomy wires. Cardiac silhouette is unchanged. No pneumothorax. Reading Location: [id number] CXR reviewed personally: large R effusion Assessment and Plan . Assessment and plan: ICU Problems: Acute hypoxemic respiratory failure Atelectasis Pleural effusion, Right Acute on chronic hypercapnic respiratory failure Plan: Needs updated EF measurement In the setting of CHFrEF(40-45%) DO NOT USE BIPAP S/T OR AVAPS EMPIRICALLY, as alkalsosis can create Aryan Mcclellan Respiration (STONE POLISHER) I recommend a simple CPAP pressure of [...] under U/S guidance Kashif Berg MD [facility] Access TeleCare Critical Care Time: The entirety of this encounter was done via Telemedicine 08/21/24 1731 <Electronically signed by Kashif Berg MD> Cosigner Signature (if applicable): CC: Dr. Donna Will MD~ Signed [facility] Work Phone: 1([phone]) 380-690806-28-2025 History and physical note Author Clive Sharp [facility] Note Date/Time August 21, 2024 12:5 8pm [facility] Medical Records Department [address] [place] [address] H&P Exam - Hospitalist 08/21/24 1223 MR#: [id number] Acct: [id number] Name: SAL ALONZO Jr. Rep #:[id number] : 1950 73 From: Clive Panchal PCP: [...] Patient is further being admitted in ICU. [facility] Medical History (Updated 08/21/24 @ 12:32 by [...] cell carcinoma Atherosclerosis of coronary artery of [place] heart without angina pectoris Pneumonia Non-Hodgkin lymphoma [...] 12/24/23 Unknown Rx Basilio 3 Sensor device) 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,raw sampler,cont #1 ea 12/24/23 Unknown Rx (FreeStyle Basilio 3 [place]) furosemide 40 mg tablet (Lasix) 20 mg [...] 71.0 H, Lymph % (Auto) 15.2 L, [place] % (Auto) 10.5 H, Eos % (Auto) [...] Sens 97 H*, [place] [address] H, Total Protein 6.2, Albumin 3.5, Globulin2.7, Albumin/Globulin Ratio 1.3 08/21/24 11:28: Urine Color Cancelled, Urine Clarity Cancelled, Urine pH Cancelled, Ur Specific [place] Cancelled, U Specif Grav (Refrac) Cancelled, Urine [...] not excluded within the right lower lobe. Whcu-ys-mkabukze pulmonary edema. Median sternotomy wires. Cardiac silhouette is unchanged. No pneumothorax. Reading Location: [facility] Assessment & Plan Assessment/Plan (1) [...] chronic mild CO2 retention. Continue BiPAP support. Steel Barrel Reamer consulted. 2. Acute on chronic HFrEF: proBNP [...] a heater probe. Clip was placed. Clip backend java developer: SentinelOne. 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 8. Chronic CAD [...] will or advanced directive. His power of family law attorney for healthcare his but also with son [...] shock if needed Total time spent in uqht-wg-ller encounter in discussion of advanced directive 17 minutes. Laboratory Results 08/21/24 10:45: WBC 10.3, RBC 2.83 L, Hgb 8.7 L, Hct 28.8 L, MCV 101.8 H, MCH 30.7, MCHC 30.2 L, RDW Std Deviation 68.8 H, RDW Coeff of Rafael 18.4 H, Plt Count 226, MPV 11.3, Immature Gran % (Auto) 1.100 H, Neut % (Auto) 71.0 H, Lymph % (Auto) 15.2 L, [place] % (Auto) 10.5 H, Eos % (Auto) [...] Sens 97 H*, [place] [address] H, Total Protein 6.2, Albumin 3.5, Globulin2.7, [...] not excluded within the right lower lobe. Gnhq-zb-dqocucku pulmonary edema. Median sternotomy wires. Cardiac silhouette is unchanged. No pneumothorax. Reading Location: [facility] Charges/Coding Visit Charges Inpatient E&M: 40617 Init Hosp L3 Procedures Hospitalists Procedures: 68741 Advncd Care Plan 30 Min 08/21/24 1254 [...] previous hospitalization. 08/21/24 1258<Electronically signed by Clive Sahrp MD> Cosigner Signature (if applicable): cc: Dr. Donna Will MD; Dr. Clive Sharp MD ~* Signed [facility] Work Phone: 1(395) 252-972406-28-2025 Discharge summary Author Terry Singh [facility] Note Date/Time August 21, 2024 12:2 8pm [facility] Medical Records Department [address] [place] [address] Emergency Department Summary 08/21/24 MR#: [id number] Acct: [id number] Name: SAL ALONZO JrJuan Rep #:[id number] : 1950 73 From: Terry Singh DO PCP: Dr. Donna Will MD Status:ADM IN Location: ICU ICU08-[address] Terry Singh DO on 08/21/24 at 1228 ABG reviewed which showed a pH 7.45 with [id number] patient is likely chronically hypercapnic according to [...] 90% on his 4 L nasal cannula. [facility] Medical History MRSA (methicillin resistant staph aureus) [...] cell carcinoma Atherosclerosis of coronary artery of [place] heart without angina pectoris Pneumonia Non-Hodgkin lymphoma [...] 12/24/23 Unknown Rx Basilio 3 Sensor device) 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,raw sampler,cont #1 ea 12/24/23 Unknown Rx (FreeStyle Basilio 3 [place]) furosemide 40 mg tablet (Lasix) 20 mg [...] following commands knew that he was at [facility] the year is 2024 Skin: Warm, dry, [...] 71.0 H Lymph % (Auto) 15.2 L [place] % (Auto) 10.5 H Eos % (Auto) [...] Sens 97 H* [place] [address] H Total Protein 6.2 Albumin 3.5 Globulin 2.7 Albumin/Globulin Ratio 1.3 Urine Color Cancelled Urine Clarity Cancelled Urine pH Cancelled Ur Specific [place] Cancelled U Specif Grav (Refrac) Cancelled Urine [...] Dyspnea on exertion, Anemia, macrocytic, Type 2 IN (myocardial infarction) Prescriptions: No Action multivitamin Tablet [...] Instructions: As directed (DME) FreeStyle Basilio 3 [place] Misc See Rx Instructions .Route Qty: 1 [...] MD [Primary Care Provider] - Print Language: Maltese Disposition Disposition: Acute Care Hospital [facility] What to do if you have Problems For any increased pain, shortness of breath, bleeding, nausea or vomiting, chestpain, or any unexpected problems, contact your Primary Care Provider. Call [facility] ([phone]) or report to the closest Emergency Room. Call 911 if necessary. 08/21/24 1202 <Electronically signed by Terry Singh DO> Cosigner Signature (if applicable): CC: Dr. Donna Will MD ~ Signed [facility] Work Phone: 1(251) 323-909206-28-2025 Evaluation note* Diagnosis Onset Date Resolution Status Admit Date Anemia, macrocytic acute July 262024 12:12pm Dyspnea on exertion acute August 21, 2024 12:12pm Acute and chronic respiratory failure with hypercapnia chronic August 21, 2024 12:12pm CHF exacerbation chronic July 12:12pm Chronic kidney disease (CKD) chronic August 21, 2024 12:12pm Type 2 IN (myocardial infarction) inactive August 21, 2024 12:12pm [...] deficiency anemia chronic Oc tober 2024 9:20am [facility] Work Phone: 1(783) 659-955606-28-2025 Radiology Diagnostic study [facility]05-27-2025 Progress note Author Tobi Zapata [facility] Note Date/Time July 20, 2024 3:19p m [facility] [address] [address] OFFICE VISIT Date of Service: 07/20/24 1447 MR#: [id number] Acct: [id number] Name: SAL ALONZO Jr. Rep #: [id number] : 1950 From: Tobi Zapata MD Age/Sex: 73/M Location: [facility] Status: Signed HPI Subjective Date of Service [...] cell carcinoma Atherosclerosis of coronary artery of [place] heart without angina pectoris Pneumonia Non-Hodgkin lymphoma [...] U-100 100 unit/mL See Protocol subcut A [facility] high 11/12/23 07/20/24 Rx (3 mL) subcutaneous pen blood glucose 1 month #15 mL needle (disp) 32 gauge 32 gauge x #100 ea 11/12/23 Rx 5/16 (Easy Touch Hypodermic Needle) pen needle, diabetic 32 gauge x #100 ea 12/03/2307/20 Rx 5/32 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 sensor (FreeStyle #1 ea 12/24/23 5 Rx Basilio 3 Sensor device) 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,raw sampler,cont #1 ea 12/24/23 07/20/24 Rx (FreeStyle Basilio 3 [place]) furosemide 40 mg tablet (Lasix) 20 mg [...] applicable) CC: Dr. Donna Will MD ~ [facility] [employer] Work Phone: 1(800) 469-188405-15-2025 Radiology Diagnostic study [facility]05-15-2025 Discharge summary Author Marco Hoffman [facility] Note Date/Time July 08, 2024 5:10p m [facility] Medical Records Department [address] [place] [address] Emergency Department Summary 07/08/24 MR#: [id number] Acct: [id number] Name: SAL ALONZO Jr. Rep #:[id number] : 1950 73 From: Marco Lilly PCP: [...] states his weakness is worse with ambulation. [facility] Medical History MRSA (methicillin resistant staph aureus) [...] cell carcinoma Atherosclerosis of coronary artery of [place] heart without angina pectoris Pneumonia Non-Hodgkin lymphoma [...] ea 12/24/23 Unknown Rx (FreeStyle Basilio 3 [place]) 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 sensor (FreeStyle #1 ea 12/24/23 Unknown [...] 71.7 H Lymph % (Auto) 15.2 L [place] % (Auto) 9.4 Eos % (Auto) 2.0 [...] Sl. Cloudy Urine pH 6.0 Ur Specific [place] 1.015 Urine Protein 30 H Urine Glucose [...] as compared to prior study. Reading Location: [facility] PA and lateral chest x-ray was obtained. [...] a normal sinus rhythm with frequent PACs. IA interval was approximately 160 ms. QRS interval was normal at 102 ms. QTc interval was 444 ms. [place] was normal. There are nonspecific ST-T wave [...] bmp, cbc, and vanc trough. Fax to [phone]. Routine picc care per protocol. insulin glargine-yfgn [...] Instructions: As directed (DME) FreeStyle Basilio 3 [place] Misc See Rx Instructions .Route Qty: 1 [...] Active Staff] - 5-7 Days Print Language: Maltese Disposition Disposition: Home, Self Care What to do if you have Problems For any increased pain, shortness of breath, bleeding, nausea or vomiting, chestpain, or any unexpected problems, contact your Primary Care Provider. Call Doctors Registry ([phone]) or report to the closest Emergency Room. Call 911 if necessary. 07/08/24 1710 <Electronically signed by Marco Hoffman DO> Cosigner Signature (if applicable): CC: Dr. 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 Work Phone: 1(895) 275-866704-27-2025 Evaluation note* Diagnosis Onset Date Resolution Status [...] chronic August 21, 2024 12:12pm Type 2 IN (myocardial infarction) inactive August 21, 2024 12:12pm [...] in remission chronic September 24, 2024 10:12am [facility] Work Phone: 1(277) 184-817904-27-2025 Evaluation note* Diagnosis Onset Date Resolution Status [...] chronic August 21, 2024 12:12pm Type 2 IN (myocardial infarction) inactive August 21, 2024 12:12pm [...] disease (CKD) chronic October 08, 2024 8:25am [facility] Work Phone: 1([phone]) 329-372404-27-2025 Evaluation note* Diagnosis Onset Date Resolution Status [...] chronic August 21, 2024 12:12pm Type 2 IN (myocardial infarction) inactive August 21, 2024 12:12pm [...] October 08, 2024 8:25am Essential hypertension chronic [facility] 2024 8:25am History of coronary artery stent placement October 22, 2013 chronic October 08 8:25am Hyperlipidemia chronic September 8:25am Iron deficiency anemia chronic [facility] 2024 8:25am [facility] Work Phone: 1(684) 543-442403-25-2025 Evaluation note* Diagnosis Onset Date Resolution Status [...] hypercapnia inactive August 212024 12:12pm Type 2 IN (myocardial infarction) inactive August 21, 2024 12:12pm Acute on chronic hypoxic respiratory failure deleted August 21 12:12pm Iron deficiency anemia chronic Ju 2024 8:50am 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 September 13, 2024 8:50am [facility] Work Phone: 1(199) 326-687503-04-2025 Evaluation note* Diagnosis Onset Date Resolution Status Admit Date Iron deficiency anemia chronic [facility] 2024 1:14pm Iron deficiency anemia refractory [...] acute August 21, 2024 12:12pm Type 2 IN (myocardial infarction) acute August 21, 2024 12:12pm Acute and chronic respirator y failure with hypercapnia chronic August 212024 12:12pm CHF exacerbation chronic July 12:12pm Chronic kidney disease (CKD) chronic August 21, 2024 12:12pm Acute on chronic hypoxic respiratory failure deleted August 21 12:12pm [facility] Work Phone: 1(447) 978-894702-10-2025 Evaluation note* Diagnosis Onset Date Resolution Status [...] bruary 2024 9:11am Iron deficiency anemia chronic [facility] 2024 1:14pm Iron deficiency anemia refractory to [...] iron therapy chronic June 252024 1:32pm [facility] Work Phone: 1(345) 741-604401-21-2025 Evaluation note* Diagnosis Onset Date Resolution Status [...] chronic March 9:11am Iron deficiency anemia chronic [facility] 2024 9:11am Iron deficiency anemia chronic [facility] 2024 1:14pm Iron deficiency anemia refractory to [...] artery disease) removed June 20, 2024 6:06pm [facility] Work Phone: 1(330) 975-254501-10-2025 Evaluation note* Diagnosis Onset Date Resolution Status [...] chronic 2024 9:11am Iron deficiency anemia chronic [facility] 2024 1:14pm Iron deficiency anemia refractory to [...] artery disease) removed June 20, 2024 6:06pm [facility] Work Phone: 1(184) 663-134404-11-2024 Procedure [facility] 03-21-2023 Telephone encounter Note* Telephone Encounter - Adri Perez RN - 03/21/2023 8:07 PM EST S: Pt's calling [facility] Nurse Advice Line regarding prescription problem. B: Pt was discharged today from [facility]. A: states [employer] insurance will not cover pt's insulin that was prescribed at discharge. wants to know why, and also what he can take instead. R: Advised that she has reached the [facility] Nurse Advice Line, and to please call the other number on her card regarding prescriptions. Caller ended call. Reason for Disposition [1] Follow-up call to recent contact AND [2] information only call, no triage required Protocols used: Information Only Call - No [id number] [id number] Miscellaneous Notes* Telephone Encounter - Adri Perez RN - 03/21/2023 8:07 PM EST S: [facility] problem. B: Pt was discharged today from [facility]. A: states [employer] insurance will not cover pt's insulin that was prescribed at discharge. wants to know why, and also what he can take instead. R: Advised that she has reached the [facility] Nurse Advice Line, and to please call the other number on her card regarding prescriptions. Caller ended call. Reason for Disposition [1] Follow-up call to recent contact AND [2] information only call, no triage required Protocols used: Information Only Call - No [id number] documented in this [facility]01-21-2024 History and physical note Author Nadira Ricks [facility] March 16, 2023 4:47pm Note Date/Time March 16, 2023 3 :13pm [facility] Medical Records Department [address] [place] [address] H&P Exam - Hospitalist 03/16/23 1449 MR#: [id number] Acct: [id number] Name: SAL ALONZO Jr. Rep #:[id number] : 1950 72 From: Nadira Ricks DO PCP: Dr. Donna Will MD Status:ADM IN Location: ICU CVICU20 02-24 HPI - General General Date of Admission: 03/16/23 Date of Service: 03/16/23 Chief Complaint: Fall/Fatigue/Hypotension/Hyperglycemia HPI Narrative SAL ALONZO, is a 72 M who presented to the emergency department at [facility] on 03/16/2023 after a fall at [...] admitted to the ICU for further care. 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 Nadira Ricks DO; Dr. Donna Will MD~ Signed [facility] Work Phone: 1(437) 233-909401-21-2024 Discharge summary Author Eva Marie [facility] March 16, 2023 5:41pm Note Date/Time March 16, 2023 2 :34pm [facility] Medical Records Department [address] [place] [address] Emergency Department Summary 03/16/23 MR#: [id number] Acct: [id number] Name: SAL ALONZO Jr. Rep #:[id number] : 1950 72 From: Eva Lilly PCP: [...] Per EMS patient's blood sugar was in [id number]. Chart review shows the patient was recently [...] time of discharge patient's hemoglobin was 10.0. [facility] Medical History Acute respiratory failure with hypoxia Allergic rhinitis Arthritis Asthma Atherosclerosis of coronary artery of [place] heart without angina pectoris Bleeding tendency Cancer [...] 82.4 H Lymph % (Auto) 7.3 L [place] % (Auto) 5.5 Eos % (Auto) 0.5 [...] Color Urine Clarity Urine pH Ur Specific [place] Urine Protein Urine Glucose (UA) Urine Ketones [...] (Auto) Neut % (Auto) Lymph % (Auto) [place] % (Auto) Eos % (Auto) Baso % [...] Clarity Clear Urine pH 6.5 Ur Specific [place] 1.010 Urine Protein 30 H Urine Glucose [...] procedures): 30-74 minutes (40), Discussing w/Patient &/or 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, Discussing w/Consultants and Arranging Admission or Transfer Discharge Plan Triage Chief Complaint: General Illness ED Provider: Eva Marie Dx/Rx/DC Orders Clinical Impression: Acute on chronic blood loss anemia, Acute hyperglycemia, Syncope, Acute kidney injury superimposed on CKD, Acute upper GI bleed Primary Care Provider: Donna Will Disposition Disposition: Acute Care Hospital [facility] Discharge Date/Time: 03/16/23 17:40 What to do if you have Problems For any increased pain, shortness of breath, bleeding, nausea or vomiting, chestpain, or any unexpected problems, contact your Primary Care Provider. Call [facility] ([phone]) or report to the closest Emergency Room. Call 911 if necessary. 03/16/23 1741 <Electronically signed by Eva Marie DO> Cosigner Signature (if applicable): CC: Dr. Donna Will MD ~ Signed [facility] Work Phone: 1(506) 182-114601-11-2024 Discharge summary Author Jordan Ortiz [facility] March 06, 2023 11:07am Note Date/Time March 06, 2023 1 1:06am [facility] Medical Records Department [address] [place] [address] Discharge Summary 03/06/23 1105 MR#: [id number] Acct: [id number] Name: SAL ALONZO Jr. Rep #:[id number] : 1950 72 From: Jordan Ortiz MD PCP: Dr. Donna Will MD Status:ADM [facility] Providers Date of Admission: 03/03/23 [...] rhythm. 19. New onset A-fib ? Patient [id number] score was calculated to be 5 patient [...] 79.8 H, Lymph % (Auto) 8.3 L, [place] % (Auto) 10.8 H, Eos % (Auto) [...] Self Care Charges/Coding Visit Charges Inpatient E&M: 71927 Disch Hosp >30min 03/06/23 1107 <Electronically signed by Jordan Ortiz MD> Cosigner Signature (if applicable): CC: Dr. Jordan Ortiz MD; Dr. Donna Will MD~ Signed [facility] Work Phone: 1(241) 625-644901-11-2024 Progress note Author Jordan Ortiz [facility] March 06, 2023 9:43am Note Date/Time March 06, 2023 9 :43am [facility] Medical Records Department [address] [place] [address] Progress Note - Hospitalist 03/06/23 0940 MR#: [id number] Acct: [id number] Name: SAL ALONZO Rep #:[id number] : 1950 72 From: Jordan Ortiz MD PCP: Dr. Donna Will MD Status:ADM IN Location: [place] [address]- 1 Reason for Visit Reason for Visit: [...] 79.8 H, Lymph % (Auto) 8.3 L, [place] % (Auto) 10.8 H, Eos % (Auto) [...] rhythm. 19. New onset A-fib ? Patient [id number] score was calculated to be 5 patient subsequently startedon systemic anticoagulation with apixaban after discussion with him Time spent in the patient's overall evaluation,decision-making process, review of diagnostic data, adjustment of management, discussion with other providers, nursing nursing and ancillary staff involved in patient's care documentation,40 minutes Charges/Coding Visit Charges Inpatient E&M: 67033 Subs Hosp L2 03/06/23 0943 <Electronically signed by Jordan Ortiz MD> Cosigner Signature (if applicable): CC: ~ Signed [facility] Work Phone: 1(342) 382-397301-10-2024 Progress note Author Jordan Ortiz [facility] March 05, 2023 10:15am Note Date/Time March 05, 2023 1 0:15am [facility] Medical Records Department [address] [place] [address] Progress Note - Hospitalist 03/05/23 1012 MR#: [id number] Acct: [id number] Name: SAL ALONZO Rep #:[id number] : 1950 72 From: Jordan Ortiz MD PCP: Dr. Donna Will MD Status:ADM IN Location: [facility] [id number]- 1 Reason for Visit Reason for Visit: [...] documentation, 50minutes Charges/Coding Visit Charges Inpatient E&M: 31800 Subs Hosp 03/05/23 1015 <Electronically signed by Jordan Ortiz MD> Ctigner Signature (if applicable): CC: ~ Signed [facility] Work Phone: 1(367) 100-294401-09-2024 Consult note Author Peter Moseley [facility] March 04, 2023 12:01pm Note Date/Time March 04, 2023 12 :02pm [facility] Medical Records Department [address] [place] [address] Counseling Note - Pharmacy 03/04/23 1201 MR#: [id number] Acct: [id number] Name: SAL ALONZO Jr. Rep #:[id number] : 1950 72 From: Peter Moseley PCP: Dr. Donna Will MD Status:ADM IN Y Location: [place] [address] Pharmacy [facility] has performed discharge medication reconciliation [...] Signature (if applicable): Date CC: ~ Signed [facility] Work Phone: 1(109) 702-674101-09-2024 Discharge summary Author Jordan Ortiz [facility] March 04, 2023 11:39am Note Date/Time March 04, 2023 11 :39am [facility] Medical Records Department [address] [place] [address] Discharge Summary 03/04/23 1138 MR#: [id number] Acct: [id number] Name: SAL ALONZO Jr. Rep #:[id number] : 1950 72 From: Jordan Ortiz MD PCP: Dr. Donna Will MD Status:ADM IN Location: [place] [address] Providers Date of Admission: 03/03/23 Date of [...] 90.3 H, Lymph % (Auto) 3.5 L, [place] % (Auto) 5.1, Eos % (Auto) 0.0, [...] Self Care Charges/Coding Visit Charges Inpatient E&M: 61654 Disch Hosp >30min 03/04/23 1139 <Electronically signed by Jordan Ortiz MD> Cosigner Signature (if applicable): CC: Dr. Jordan Ortiz MD; Dr. Donna Will MD~ Signed [facility] Work Phone: 1(907) 207-602701-09-2024 Progress note Author Jordan [facility] March 04, 2023 11:36am Note Date/Time March 04, 2023 8: 18am [facility] Medical Records Department [address] [place] [address] Progress Note - Hospitalist 03/04/2318 MR#: [id number] Acct: [id number] Name: SAL ALONZO Jr. Rep #:[id number] : 1950 72 From: Jordan Ortiz MD PCP: Dr. Donna Will MD Status:ADM IN Location: [place] [address] Reason for Visit Reason for Visit: Diagnoses [...] documentation, 35minutes Charges/Coding Visit Charges Inpatient E&M: 99892 Subs Hosp L2 03/04/23 1136 <Electronically signed by Jordan Ortiz MD> Cosigner Signature (if applicable): CC: ~ Signed [facility] Work Phone: 1(226) 981-346901-08-2024 Progress note Author Jordan Ortiz [facility] March 03, 2023 9:16am Note Date/Time March 03, 2023 9: 03am [facility] Medical Records Department [address] [place] [address] Progress Note - Hospitalist 03/03/23 0903 MR#: [id number] Acct: [id number] Name: CHERISAL Jr. Rep #:[id number] : 1950 72 From: Jordan Ortiz MD PCP: Dr. Donna Will MD Status:ADM LEONCIO Location: [place] [address] Reason for Visit Reason for Visit: Diagnoses [...] 91.8 H, Lymph % (Auto) 3.5 L, [place] % (Auto) 3.9, Eos % (Auto) 0.0, [...] 50 Minutes Charges/Coding Visit Charges Inpatient E&M: 69207 Subs Hosp L3 03/03/23 0916 <Electronically signed by Jordan Ortiz MD> Cosigner Signature (if applicable): CC: ~ Signed [facility] Work Phone: 1(892) 497-743401-07-2024 Discharge summary Author Jordan Ortiz [facility] March 02, 2023 10:54am Note Date/Time March 02, 2023 10 :52am [facility] Medical Records Department [address] [place] [address] [place] [address] Discharge Summary 03/02/23 1050 MR#: [id number] Acct: [id number] Name: SAL ALONZO Jr. Rep #:[id number] : 1950 72 From: Jordan Ortiz MD PCP: Dr. Donna Will MD Status:ADM LEONCIO Location: [place] [address] Providers Date of Admission: 02/28/23 Date of [...] 89.5 H, Lymph % (Auto) 5.3 L, [place] % (Auto) 4.0, Eos % (Auto) 0.0, [...] Self Care Charges/Coding Visit Charges Inpatient E&M: 24267 Disch Hosp >30min 03/02/23 1054 <Electronically signed by Jordan Ortiz MD> Cosigner Signature (if applicable): CC: Dr. Jordan Ortiz MD; Dr. Donna Will MD~ Signed [facility] Work Phone: 1(523) 584-764701-07-2024 Progress note Author Jordan Ortiz [facility] March 02, 2023 10:47am Note Date/Time March 02, 2023 7: 56am [facility] Medical Records Department [address] [place] [address] Progress Note - Hospitalist 03/02/23 0755 MR#: [id number] Acct: [id number] Name: SAL ALONZO Jr. Rep #:[id number] : 1950 72 From: Jordan Ortiz MD PCP: Dr. Donna Will MD Status:ADM LEONCIO Location: [place] [address] Reason for Visit Reason for Visit: Diagnoses [...] (Auto) 84.0 H, Lymph %(Auto) 10.9 L, [place] % (Auto) 4.0, Eos % (Auto) 0.0, [...] 89.5 H, Lymph % (Auto) 5.3 L, [place] % (Auto) 4.0, Eos % (Auto) 0.0, [...] documentation, 35Minutes Charges/Coding Visit Charges Inpatient E&M: 68887 Subs Hosp L2 03/02/23 1047 <Electronically signed by Jordan Ortiz MD> Cosigner Signature (if applicable): CC: ~ Signed [facility] Work Phone: 1(465) 942-139101-06-2024 Progress note Author Jordan Ortiz [facility] March 01, 2023 11:48am Note Date/Time March 01, 2023 8: 11am [facility] Medical Records Department [address] [place] [address] Progress Note - Hospitalist 03/01/23 0811 MR#: [id number] Acct: [id number] Name: SAL ALONZO Jr. Rep #:[id number] : 1950 72 From: Jordan Ortiz MD PCP: Dr. Donna Will MD Status:ADM LEONCIO Location: [place] [address] Reason for Visit Reason for Visit: Diagnoses [...] 74.3 H, Lymph % (Auto) 11.7 L, [place] % (Auto) 8.6, Eos % (Auto) 3.9, [...] documentation,55 Minutes Charges/Coding Visit Charges Inpatient E&M: 12071 [facility] Hosp 03/01/23 1148 <Electronically signed by Jordan Ortiz MD> Cosigner Signature (if applicable): CC: ~ Signed [facility] Work Phone: 1(768) 813-843701-05-2024 History and physical note Author Mable Pritchard [facility] February 28, 2023 4:59pm Note Date/Time February 28, 2023 4: 46pm [facility] Medical Records Department [address] [place] [address] H&P Exam - Hospitalist 02/28/23 1642 MR#: [id number] Acct: [id number] Name: SAL ALONZO JrJuan Rep #:[id number] : 1950 72 From: Mable Pritchard MD PCP: Dr. Donna Will MD Status:ADM LEONCIO Location: [place] [address] HPI - General General Date of Admission: 02/28/23 Date of Service: 02/28/23 Chief Complaint: Gen weakness, SOB HPI Narrative SAL ALONZO, is a 72-year-old male history of COPD on 4 L home O2, diabetes, VTE,rheumatoid arthritis, depression, BPH who presented to [facility] 02/28/2023 with increased cough with yellowish [...] left leg is slightly swollen as well. [facility] Medical History Acute respiratory failure with hypoxia Allergic rhinitis Arthritis Asthma Atherosclerosis of coronary artery of [place] heart without angina pectoris Bleeding tendency Cancer [...] 74.3 H, Lymph % (Auto) 11.7 L, [place] % (Auto) 8.6, Eos % (Auto) 3.9, [...] 12:46 EST Reading Location ID and State: [facility] / [place] , Service support , Assessment & Plan [...] Pritchard MD Charges/Coding Visit Charges Inpatient E&M: 40275 Init Hosp L2 02/28/23 1659 <Electronically signed by Mable Pritchard MD> Cosigner Signature (if applicable): CC: Dr. Donna Will MD; Dr. Mable Pritchard MD~ Signed [facility] Work Phone: 1(260) 801-446801-05-2024 Discharge summary Author Dwain Nowak [facility] February 28, 2023 4:16pm Note Date/Time February 28, 2023 11 :58am [facility] Medical Records Department [address] [place] [address] Emergency Department Summary 02/28/23 MR#: [id number] Acct: [id number] Name: SAL ALONZO Jr. Rep #:[id number] : 1950 72 From: Dwain Nowak MD [...] Arthritis Asthma Atherosclerosis of coronary artery of [place] heart without angina pectoris Bleeding tendency Cancer [...] 74.3 H Lymph % (Auto) 11.7 L [place] % (Auto) 8.6 Eos % (Auto) 3.9 [...] 12:46 EST Reading Location ID and State: [address] [place] [address] , Service support , Chest x-ray, portable, single view shows a chronic right pleural effusion. Priorsternotomy. No acute process. Rhythm Strip Rhythm Strip: Sinus Rhythm Rate: 82 Ectopy: None EKG Initial EKG: Attestation: I personally reviewed and interpreted this EKG as follows: Interpretation: Sinus Rhythm and No Acute Injury Pattern Comments: Sinus rhythm rate 82 no acute signs of IN or ischemia. No acute change from prior EKG from October. Prior EKG tracings: available for review Prior: Unchanged Discharge Plan Dx/Rx/DC Orders Clinical Impression: History of COPD, History of chronic kidney disease, Acute dyspnea, Anemia, Pleural effusion on right, Acute hyperkalemia Disposition Disposition: [facility] Care [facility] What to do if you have Problems For any increased pain, shortness of breath, bleeding, nausea or vomiting, chestpain, or any unexpected problems, contact your Primary Care Provider. Call [facility] ([phone]) or report to the closest Emergency Room. Call 911 if necessary. 02/28/23 1616 <Electronically signed by Dwain Nowak MD> Cosigner Signature (if applicable): CC: Dr. Donna Will MD ~ Signed [facility] Work Phone: 1(348) 131-913701-05-2024 Discharge summary Author Dwain Nowak [facility] February 28, 2023 4:16pm Note Date/Time February 28, 2023 11 :58am [facility] Medical Records Department [address] [place] [address] Emergency Department Summary 02/28/23 MR#: [id number] Acct: [id number] Name: SAL ALONZO JrJuan Rep #:[id number] : 1950 72 From: Dwain Nowak MD [...] Prior similar symptoms: Yes Recent Illness/Hospitalization: No [facility] Medical History Acute respiratory failure with hypoxia Allergic rhinitis Arthritis Asthma Atherosclerosis of coronary artery of [place] heart without angina pectoris Bleeding tendency Cancer [...] 74.3 H Lymph % (Auto) 11.7 L [place] % (Auto) 8.6 Eos % (Auto) 3.9 [...] 12:46 EST Reading Location ID and State: [address] [place] [address] , Service support , Chest x-ray, portable, single view shows a chronic right pleural effusion. Priorsternotomy. No acute process. Rhythm Strip Rhythm Strip: Sinus Rhythm Rate: 82 Ectopy: None EKG Initial EKG: Attestation: I personally reviewed and interpreted this EKG as follows: Interpretation: Sinus Rhythm and No Acute Injury Pattern Comments: Sinus rhythm rate 82 no acute signs of IN or ischemia. No acute change from prior EKG from October. Prior EKG tracings: available for review Prior: Unchanged Discharge Plan Dx/Rx/DC Orders Clinical Impression: History of COPD, History of chronic kidney disease, Acute dyspnea, Anemia, Pleural effusion on right, Acute hyperkalemia Disposition Disposition: Acute Care Hospital [facility] What to do if you have Problems For any increased pain, shortness of breath, bleeding, nausea or vomiting, chestpain, or any unexpected problems, contact your Primary Care Provider. Call [facility] ([phone]) or report to the closest Emergency Room. Call 911 if necessary. 02/28/23 1616 <Electronically signed by Dwain Nowak MD> Cosigner Signature (if applicable): CC: Dr. Donna Will MD ~ Signed [facility] Work Phone: 1(162) 533-659409-24-2023 Discharge summary Author [facility] November 17, 2022 11:58am Note Date/Time November 17, 2022 11:53am [facility] Medical Records Department [address] [place] [address] Discharge Summary 11/17/22 1150 MR#: [id number] Acct: [id number] Name: CHERISAL Andre Roper Rep #:[id number] : 1950 72 From: Jordan Ortiz MD PCP: Dr. Donna Will MD Status:ADM IN Location: [place] [address] Providers Date of Admission: 11/15/22 Date of [...] % (Auto) 60.4, Lymph % (Auto) 19.4, [place] % (Auto) 12.0 H, Eos % (Auto) [...] Self Care Charges/Coding Visit Charges Inpatient E&M: 88801 Disch Hosp >30min 11/17/22 1158 <Electronically signed by Jordan Ortiz MD> Cosigner Signature (if applicable): CC: Dr. Jordan Ortiz MD; Dr. Donna Will MD~ Signed [facility] Work Phone: 1(715) 438-971509-24-2023 Progress note Author Jordan Ortiz [facility] November 17, 2022 10:40am Note Date/Time November 17, 2022 8:32am [facility] Medical Records Department [address] [place] [address] Progress Note - Hospitalist 11/17/2231 MR#: [id number] Acct: [id number] Name: SAL ALONZO Jr. Rep #:[id number] : 1950 72 From: Jordan Ortiz MD PCP: Dr. Donna Will MD Status:ADM IN Location: [place] [address] Reason for Visit Reason for Visit: Diagnoses [...] % (Auto) 60.4, Lymph % (Auto) 19.4, [place] % (Auto) 12.0 H, Eos % (Auto) [...] documentation, 35Minutes Charges/Coding Visit Charges Inpatient E&M: 03782 Subs Hosp L2 11/17/22 1040 <Electronically signed by Jordan Ortiz MD> Cosigner Signature (if applicable): CC: ~ Signed [facility] Work Phone: 1(519) 330-120009-23-2023 Progress note Author Jordan Ortiz [facility] November 16, 2022 11:02am Note Date/Time November 16, 2022 8:33am [facility] Medical Records Department [address] [place] [address] Progress Note - Hospitalist 11/16/22831 MR#: [id number] Acct: [id number] Name: SAL ALONZO Rep #:[id number] : 1950 72 From: Jordan Ortiz MD PCP: Dr. Donna Will MD Status:ADM IN Location: [place] [address] Reason for Visit Reason for Visit: Diagnoses [...] (Auto) 65.2, Lymph % (Auto) 17.9 L, [place] % (Auto) 8.9, Eos % (Auto) 6.0 [...] 16:02 EDT Reading Location ID and State: [address] [place] [address] Tel , Service support , Physical Exam [...] documentation, 55Minutes Charges/Coding Visit Charges Inpatient E&M: 31133 Subs Hosp L3 11/16/22 1102 <Electronically signed by Jordan Ortiz MD> Cosigner Signature (if applicable): CC: ~ Signed [facility] Work Phone: 1(538) 895-947809-22-2023 History and physical note Author Loki Lozoya [facility] November 15, 2022 8:33pm Note Date/Time November 15, 2022 7:11pm [facility] Medical Records Department [address] [place] [address] H&P Exam - Hospitalist 11/15/22 1905 MR#: [id number] Acct: [id number] Name: SAL ALONZO Rep #:[id number] : 1950 72 From: Loki worthington DO PCP: Dr. Donna Will MD Status:ADM IN Location: [place] [address] HPI - General General Date of Admission: [...] and former tobacco use who presented to [facility] ED on 11/13/2022 with worsening [...] right and small on left, bibasilar atelectasis. [facility] Medical History Acute respiratory failure with hypoxia Allergic rhinitis Arthritis Asthma Atherosclerosis of coronary artery of [place] heart without angina pectoris Bleeding tendency Cancer [...] (Auto) 65.2, Lymph % (Auto) 17.9 L, [place] % (Auto) 8.9, Eos % (Auto) 6.0 [...] and former tobacco use who presented to [facility] on 11/13/2022 with worsening dyspnea. 1. [...] 55 minutes. Charges/Coding Visit Charges Inpatient E&M: 63911 Init Hosp L2 11/15/222032 <Electronically signed by Loki Lozoya DO> Cosigner Signature (if applicable): CC: Dr. Loki Lozoya DO; Dr. Donna Will MD~ Signed [facility] Work Phone: 1(116) 541-908509-22-2023 Discharge summary Author Jjdaisy Garcia [facility] November 15, 2022 7:09pm Note Date/Time November 15, 2022 2:59pm [facility] Medical Records Department [address] [place] [address] Emergency Department Summary 11/15/22 MR#: [id number] Acct: [id number] Name: SAL ALONZO Jr. Rep #:[id number] : 1950 72 From: Jj Garcia MD [...] Arthritis Asthma Atherosclerosis of coronary artery of [place] heart without angina pectoris Bleeding tendency Cancer [...] (Auto) 65.2 Lymph % (Auto) 17.9 L [place] % (Auto) 8.9 Eos % (Auto) 6.0 [...] (Rate is 74. The EKG is normal. IA intervalis 152 ms. QRS duration 102 ms. QT duration 400 ms. [place] is normal) Treatment and Re-Evaluation :: Walked [...] Provider] - Disposition Disposition: Acute Care Hospital [facility] What to do if you have Problems For any increased pain, shortness of breath, bleeding, nausea or vomiting, chestpain, or any unexpected problems, contact your Primary Care Provider. Call [facility] ([phone]) or report to the closest Emergency Room. Call 911 if necessary. 11/15/221908 <Electronically signed by Jj Garcia MD> Cosigner Signature (if applicable): CC: Dr. Donna Will MD ~ Signed [facility] Work Phone: 1(879) 723-378209-22-2023 Discharge summary Author Jj Aultman [facility] November 15, 2022 7:09pm Note Date/Time November 15, 2022 2:59pm [facility] Medical Records Department [address] [place] [address] Emergency Department Summary 11/15/22 MR#: [id number] Acct: [id number] Name: SAL ALONZO Andre Roper Rep #:[id number] : 1950 72 From: Jj Garcia MD [...] Arthritis Asthma Atherosclerosis of coronary artery of [place] heart without angina pectoris Bleeding tendency Cancer [...] (Auto) 65.2 Lymph % (Auto) 17.9 L [place] % (Auto) 8.9 Eos % (Auto) 6.0 [...] (Rate is 74. The EKG is normal. IA intervalis 152 ms. QRS duration 102 ms. QT duration 400 ms. [place] is normal) Treatment and Re-Evaluation :: Walked [...] Provider] - Disposition Disposition: Acute Care Hospital [facility] What to do if you have Problems For any increased pain, shortness of breath, bleeding, nausea or vomiting, chestpain, or any unexpected problems, contact your Primary Care Provider. Call [facility] ([phone]) or report to the closest Emergency Room. Call 911 if necessary. 11/15/221908 <Electronically signed by Jj Garcia MD> Cosigner Signature (if applicable): CC: Dr. Donna Will MD ~ Signed [facility] Work Phone: [phone]) 781-758307-06-2023 Discharge summary Author Adam Freeman [facility] August 29, 2022 6:21pm Note Date/Time August 29, 2022 4:41p m [facility] Medical Records Department [address] [place] [address] Emergency Department Summary 08/29/22 MR#: [id number] Acct: [id number] Name: SAL ALONZO Jr. Rep #:[id number] : 1950 71 From: Adam Freeman MD [...] states that he swallowed a camera for hand grinder, Dr. 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 He and [...] for a few months. No gross hematemesis. [facility] Medical History Acute respiratory failure with hypoxia Allergic rhinitis Arthritis Asthma Atherosclerosis of coronary artery of [place] heart without angina pectoris Bleeding tendency Cancer [...] (1,000 unit) capsule 25 mcg PO DAILY iagnryc48/24/21 [History Last Taken 12/08/21] nitroglycerin 0.4 mg [...] Reaction Status Date / Time [facility] AdvReac Intermediate diarrhea, Verified 08/29/22 15:49 dizziness, [...] (Auto) 68.2 Lymph % (Auto) 15.6 L [place] % (Auto) 10.4 H Eos % (Auto) [...] as directed. You have prescriptions waiting at [facility] for Carafate and Protonix. Disposition Disposition: Home, Self Care What to do if you have Problems For any increased pain, shortness of breath, bleeding, nausea or vomiting, chestpain, or any unexpected problems, contact your Primary Care Provider. Call [facility] ([phone]) or report to the closest Emergency Room. Call 911 if necessary. 08/29/22 1821 <Electronically signed by Adam Freeman MD> Cosigner Signature (if applicable): CC: Dr. Donna Will MD ~ Signed [facility] Work Phone: 1(551) 948-526707-06-2023 Hospital Discharge instructions Additional Instructions Follow-up with Dr. Galeana. They will attempt to contact you tomorrow for outpatient iron infusion. If you do not hear from them by 10 AM, call the office. Take your medications as directed. You have prescriptions waiting at [facility] for Carafate and Protonix. [facility] Work Phone: 1(185) 662-548704-12-2023 Procedure [facility] 05-16-2022 Procedure [facility]03-21-2023 Procedure note [facility]01-27-2023 Procedure [facility] 04-24-2021 Evaluation note* Diagnosis Onset Date [...] remission acute Atherosclerosis of coronary artery of [place] heart without angina pectoris chronic Chronic hypoxemic respiratory failure chronic COPD (chronic obstructive pulmonary disease) chronic Essential hypertension chron ic GI bleed April, chronic Iron deficiency anemia chron ic Obesity chronic Type 2 diabetes mellitus chr onic [facility] Work Phone: 1(758) 423-456903-01-2022 Evaluation note* Diagnosis Onset Date Resolution Status Iron deficiency anemia chron ic 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 Iron deficiency anemia chron ic 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 GI bleed April, chronic Iron deficiency anemia chron ic Nicotine dependence, cigarettes, in remission acute Atherosclerosis of coronary artery of [place] heart without angina pectoris chronic Chronic hypoxemic respiratory failure chronic COPD (chronic obstructive pulmonary disease) chronic Essential hypertension chron ic GI bleed April, chronic Iron deficiency anemia chron ic Obesity chronic Type 2 diabetes mellitus chr onic Anemia chronic Iron deficiency anemia chron ic 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 Atherosclerosis of coronary artery of [place] heart without angina pectoris chronic Essential hypertension [...] chronic Type 2 diabetes mellitus chr onic [facility] Work Phone: Consult note Author Kellen Sanchez [facility] March 06, 2023 4:39pm Note Date/Time March 06, 2023 4 :39pm [facility] Medical Records Department [address] [place] [address] Counseling Note - Pharmacy 03/06/23 1636 MR#: [id number] Acct: [id number] Name: SAL ALONZO Jr. Rep #:[id number] : 1950 72 From: Kellen Sanchez PCP: Dr. Donna Will MD Status:ADM [facility] has performed discharge medication reconciliation [...] Signature (if applicable): Date CC: ~ Signed [facility] Work Phone: Discharge summary Author Terry Singh [facility] Note Date/Time August 21, 2024 12:2 8pm [facility] Medical Records Department [address] [place] [address] Emergency Department Summary 08/21/24 MR#: [id number] Acct: [id number] Name: SAL ALONZO Jr. Rep #:[id number] : 1950 73 From: Terry Singh DO PCP: Dr. Donna Will MD Status:ADM IN Location: ICU ICU08-[address] Terry Singh DO on 08/21/24 at 1228 ABG reviewed which showed a pH 7.45 with [id number] patient is likely chronically hypercapnic according to [...] 90% on his 4 L nasal cannula. [facility] Medical History MRSA (methicillin resistant staph aureus) [...] cell carcinoma Atherosclerosis of coronary artery of [place] heart without angina pectoris Pneumonia Non-Hodgkin lymphoma [...] 12/24/23 Unknown Rx Basilio 3 Sensor device) 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,raw sampler,cont #1 ea 12/24/23 Unknown Rx (FreeStyle Basilio 3 [place]) furosemide 40 mg tablet (Lasix) 20 mg [...] following commands knew that he was at [facility] the year is 2024 Skin: Warm, dry, [...] 71.0 H Lymph % (Auto) 15.2 L [place] % (Auto) 10.5 H Eos % (Auto) [...] Sens 97 [place]* [place] [address] H Total Protein 6.2 Albumin 3.5 Globulin 2.7 Albumin/Globulin Ratio 1.3 Urine Color Cancelled Urine Clarity Cancelled Urine pH Cancelled Ur Specific [place] Cancelled U Specif Grav (Refrac) Cancelled Urine [...] Dyspnea on exertion, Anemia, macrocytic, Type 2 IN (myocardial infarction) Prescriptions: No Action multivitamin Tablet [...] Instructions: As directed (DME) FreeStyle Basilio 3 [place] Misc See Rx Instructions .Route Qty: 1 [...] MD [Primary Care Provider] - Print Language: Maltese Disposition Disposition: Acute Care Hospital [facility] What to do if you have Problems For any increased pain, shortness of breath, bleeding, nausea or vomiting, chestpain, or any unexpected problems, contact your Primary Care Provider. Call [facility] ([phone]) or report to the closest Emergency Room. Call 911 if necessary. 08/21/24 1202 <Electronically signed by Terry Singh DO> Cosigner Signature (if applicable): CC: Dr. Donna Will MD ~ Signed [facility] Work Phone: Discharge summary Author [facility] Note Date/Time August 25, 2024 3:14p [facility] Medical Records Department [address] [place] [address] Discharge Summary 08/25/24 1503 MR#: [id number] Acct: [id number] Name: SAL ALONZO Rep #:[id number] : 1950 73 From: Clive Panchal PCP: Dr. Donna Will MD Status:ADM IN Location: [facility] [id number] Providers Date of Admission: 08/21/24 Date of Discharge: 08/25/24 Primary Care Physician: Dr. Donna Will MD Consultations 08/21/24 12:42 Consult: Steel Barrel Reamer / Pulmonary Medicine Routine Consulting Provider: Intensivists/Pulmonary [...] Time Notified: 13:03 Method of Notification: per hospital social worker Reason For Visit: ACUTE ON CHR HYPOXIC [...] chronic mild CO2 retention. Continue BiPAP support. Steel Barrel Reamer consulted. 08/22: Discussed with the bobbin cleaner hand Dr. Berg yesterday. consult reviewed. Usually, previous [...] a heater probe. Clip was placed. Clip backend java developer: [employer]. 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 8. Chronic CAD [...] will or advanced directive. His power of family law attorney for healthcare his but also with son [...] shock if needed Total time spent in nilb-zf-nyjt encounter in discussion of advanced directive 17 [...] 70.6 H, Lymph % (Auto) 16.5 L, [place] % (Auto) 10.1 H, Eos % (Auto) [...] (Auto) 68.6, Lymph % (Auto) 16.2 L, [place] % (Auto) 11.1 H, Eos % (Auto) [...] not excluded within the right lower lobe. Twum-uf-zopywkai pulmonary edema. Median sternotomy wires. Cardiac silhouette is unchanged. No pneumothorax. Reading Location: [id number] Medications at Discharge Home Medications finasteride 5 [...] Basilio 3 Sensor device) #1 ea 12/24/23 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,raw sampler,cont (FreeStyle Basilio 3 [place]) #1 ea 12/24/23 empagliflozin 10 mg tablet [...] Neut % (Auto) 63.1, Lymph %(Auto) 21.0, [place] % (Auto) 10.9 H, Eos % (Auto) [...] pneumonitis at either lung base. Pleural effusions, pqccd-sunpirl-zxjm-left, are noted. No pneumothorax is seen. The cardiomediastinal silhouette is stable, without evidence of cardiomegaly. Reading Location: [place] [address] D/C Instructions Discharge Diet: 8 Cup Fluid [...] Instructions: As directed (DME) FreeStyle Basilio 3 [place] Misc See Rx Instructions .Route Qty: 1 [...] MD [Primary Care Provider] - Gris Naik LABORATORY INSPECTOR-C [Med Staff - Adv Practice Prof] - Within 2 Weeks (Bilateral pleural effusion, COPD.) Elizabeth Velazquez, PA [Med Staff - Adv Practice Prof] - Within 2 Weeks (For heart failure, pulmonary edema) Zaira Lopez MD [Med Staff - Consulting] - Within 1 Month Disposition Disposition (needs filled in before D/C Order can be placed): Home Health Service Charges/Coding Visit Charges Inpatient E&M: 25749 Subs Hosp L2 08/25/24 8061 <Electronically signed by Clive Sharp MD> Cosigner Signature (if applicable): CC: Dr. Donna Will MD; Dr. Clive Sharp MD~ Signed [facility] Work Phone: Evaluation note* Diagnosis Onset Date Resolution Status COVID-19 acute Acute hypoxemic respiratory failure due to COVID-19 resolved Encephalopathy acute resolve d FTT (failure to thrive) in adult resolved Hypoxia resolved COVID-19 acute Atherosclerosis of coronary artery of [place] heart without angina pectoris chronic Hyperlipidemia chronic Acute hypoxemic respiratory failure due to COVID-19 resolved Acute alteration in mental status resolved Acute respiratory failure with hypoxia resolved Hypoxemia resolved Pneumonia resolved Pneumonia acute Asthma chronic Atherosclerosis of coronary artery of [place] heart without angina pectoris chronic Chronic bronchitis [...] deficiency acute Chronic obstructive pulmonary disease chronic [facility] Work Phone: Evaluation note* Diagnosis Onset Date Resolution Status Acute alteration in mental status resolved Acute respiratory failure with hypoxia resolved Hypoxemia resolved Pneumonia resolved Pneumonia acute Asthma chronic Atherosclerosis of coronary artery of [place] heart without angina pectoris chronic Chronic bronchitis [...] History of diabetes mellitus, type II chronic [facility] Work Phone: Evaluation note* Diagnosis Onset Date Resolution Status Acute alteration in mental status resolved Acute respiratory failure with hypoxia resolved Hypoxemia resolved Pneumonia resolved Pneumonia acute Asthma chronic Atherosclerosis of coronary artery of [place] heart without angina pectoris chronic Chronic bronchitis [...] II chronic Generalized weakness acute Pneumonia acute [facility] Work Phone: Evaluation note* Diagnosis Onset [...] embolism acute Swelling of lower extremity acute [facility] Work Phone: Evaluation note* Diagnosis Onset Date Resolution Status Acute on chronic respiratory failure with hypoxemia chronic Chronic obstructive pulmonary disease chronic Chronic obstructive pulmonary disease chronic Hyperlipidemia chronic Generalized weakness resolve d Pneumonia resolved Iron deficiency anemia chron ic Swelling of lower extremity chronic Hypoxia acute Leukocytosis acute Pneumonia acute [facility] Work Phone: Evaluation note* Diagnosis Onset Date Resolution Status Acute on chronic respiratory failure with hypoxemia chronic Chronic obstructive pulmonary disease chronic Chronic obstructive pulmonary disease chronic Hyperlipidemia chronic Generalized weakness resolve d Pneumonia resolved Iron deficiency anemia chron ic Swelling of lower extremity chronic Pneumonia acute Hypoxia resolved Leukocytosis resolved Atherosclerosis of coronary artery of [place] heart without angina pectoris chronic Essential hypertension [...] chronic Type 2 diabetes mellitus chr onic [facility] Work Phone: Evaluation note* Diagnosis Onset Date Resolution Status Iron deficiency anemia chron ic Swelling of lower extremity chronic Pneumonia acute Hypoxia resolved Leukocytosis resolved Atherosclerosis of coronary artery of [place] heart without angina pectoris chronic Essential hypertension [...] Leukocytosis acute Pneumonia acute COPD exacerbation chronic [facility] Work Phone: Evaluation note* Diagnosis Onset Date Resolution Status Iron deficiency anemia chron ic Swelling of lower extremity chronic Pneumonia acute Hypoxia resolved Leukocytosis resolved Atherosclerosis of coronary artery of [place] heart without angina pectoris chronic Essential hypertension [...] exacerbation chronic Iron deficiency anemia chron ic [facility] Work Phone: Evaluation note* Diagnosis Onset Date Resolution Status Iron deficiency anemia chron ic Swelling of lower extremity chronic Hypoxia resolved Leukocytosis resolved Pneumonia resolved Atherosclerosis of coronary artery of [place] heart without angina pectoris chronic Essential hypertension [...] 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 [facility] Work Phone: Evaluation note* Diagnosis Onset Date Resolution Status Hypoxia resolved Leukocytosis resolved Pneumonia resolved Atherosclerosis of coronary artery of [place] heart without angina pectoris chronic Essential hypertension [...] 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 [facility] Work Phone: Evaluation note* Diagnosis Onset [...] Bilateral pneumonia acute Debility acute Hypoxemia acute [facility] Work Phone: Evaluation note* Diagnosis Onset [...] with hypoxemia chronic Chronic obstructive pulmonary disease [facility] Work Phone: Evaluation note* Diagnosis Onset [...] failure chronic COPD (chronic obstructive pulmonary disease) [facility] Work Phone: Evaluation note* Diagnosis Onset [...] 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 [facility] Work Phone: Evaluation note* Diagnosis Onset [...] (chronic obstructive pulmonary disease) chronic Tobacco abuse [facility] Work Phone: Evaluation note* Diagnosis Onset [...] April, chronic Iron deficiency anemia chron ic [facility] Work Phone: Evaluation note* Diagnosis Onset [...] failure acute Atherosclerosis of coronary artery of [place] heart without angina pectoris chronic Chronic kidney [...] chronic Nicotine dependence, cigarettes, in remission chronic [facility] Work Phone: Evaluation note* Diagnosis Onset [...] failure acute Atherosclerosis of coronary artery of [place] heart without angina pectoris chronic Chronic kidney [...] Anemia acute Pleural effusion on right ac [place] History of chronic kidney disease chronic History of COPD chronic [facility] Work Phone: Evaluation note* Diagnosis Onset [...] failure acute Atherosclerosis of coronary artery of [place] heart without angina pectoris chronic Chronic kidney [...] failure acute Pleural effusion on right ac [place] COPD exacerbation chronic History of chronic kidney disease chronic History of COPD chronic History of coronary artery stent placement September chronic Type 2 diabetes mellitus chr onic History of pulmonary embolus (PE) April 30, 2021 resolved [facility] Work Phone: Evaluation note* Diagnosis Onset [...] failure acute Atherosclerosis of coronary artery of [place] heart without angina pectoris chronic Chronic kidney [...] failure acute Pleural effusion on right ac [place] COPD exacerbation chronic History of chronic kidney disease chronic History of COPD chronic History of coronary artery stent placement September chronic Type 2 diabetes mellitus chr onic Acute hyperkalemia resolved Anemia resolved History of pulmonary embolus (PE) April 30, 2021 resolved Acute anemia acute Acute lactic acidosis acute LUIS (acute kidney injury) ac [place] Elevated troponin I level ac [place] Fall acute Fatigue acute Hemorrhagic shock acute Hyperglycemia acute Hypotension acute Leukocytosis acute Pleural effusion on right ac [place] [facility] Work Phone: Evaluation note* Diagnosis Onset Date Resolution Status Anemia chronic Iron deficiency anemia chron ic Iron deficiency anemia refra ctory to iron therapy chronic Chronic hypoxemic respiratory failure chronic COPD (chronic obstructive pulmonary disease) chronic Nicotine dependence, cigarettes, in remission chronic Acute dyspnea acute Heart failure acute Pleural effusion on right ac [place] COPD exacerbation chronic History of chronic kidney disease chronic History of COPD chronic History of coronary artery stent placement September chronic Type 2 diabetes mellitus chr onic Acute hyperkalemia resolved Anemia resolved History of pulmonary embolus (PE) April 30, 2021 resolved Acute anemia acute Acute hyperglycemia acute Acute lactic acidosis acute LUIS (acute kidney injury) ac [place] Elevated troponin I level ac [place] Fall acute Fatigue acute Hemorrhagic shock acute Hyperglycemia acute Hypotension acute Leukocytosis acute Pleural effusion on right ac [place] Syncope acute Acute on chronic blood loss [...] resolved Acute upper GI bleed resolve d [facility] Work Phone: Evaluation note* Diagnosis Onset Date Resolution Status Anemia chronic Iron deficiency anemia chron ic Iron deficiency anemia refra ctory to iron therapy chronic Chronic hypoxemic respiratory failure chronic COPD (chronic obstructive pulmonary disease) chronic Nicotine dependence, cigarettes, in remission chronic Acute dyspnea acute Heart failure acute Pleural effusion on right [place] COPD exacerbation chronic History of chronic kidney disease chronic History of COPD chronic History of coronary artery stent placement September chronic Type 2 diabetes mellitus chr onic Acute hyperkalemia resolved Anemia resolved History of pulmonary embolus (PE) April 30, 2021 resolved Acute anemia acute Acute hyperglycemia acute Acute lactic acidosis acute LUIS (acute kidney injury) [place] Elevated troponin I level [place] Fall acute Fatigue acute Hemorrhagic shock acute Hyperglycemia acute Hypotension acute Leukocytosis acute Pleural effusion on right [place] Syncope acute Acute on chronic blood loss [...] fraction) acute Atherosclerosis of coronary artery of [place] heart without angina pectoris chronic Essential hypertension chron ic History of coronary artery stent placement September chronic Hyperlipidemia chronic Iron deficiency anemia chron ic [facility] Work Phone: Evaluation note* Diagnosis Onset Date Resolution Status Acute dyspnea acute Heart failure acute Pleural effusion on right [place] COPD exacerbation chronic History of chronic kidney disease chronic History of COPD chronic History of coronary artery stent placement September chronic Type 2 diabetes mellitus chr onic Acute hyperkalemia resolved Anemia resolved History of pulmonary embolus (PE) April 30, 2021 resolved Acute anemia acute Acute hyperglycemia acute Acute lactic acidosis acute LUIS (acute kidney injury) [place] Elevated troponin I level [place] Fall acute Fatigue acute Hemorrhagic shock acute Hyperglycemia acute Hypotension acute Leukocytosis acute Pleural effusion on right [place] Syncope acute Acute on chronic blood loss [...] anemia refra ctory to iron therapy chronic [facility] Work Phone: History and physical note Author Clive Sharp [facility] Note Date/Time August 21, 2024 12:5 8pm [facility] Medical Records Department [address] [place] [address] H&P Exam - Hospitalist 08/21/24 1223 MR#: [id number] Acct: [id number] Name: SAL ALONZO Jr. Rep #:[id number] : 1950 73 From: Clive Panchal PCP: [...] Patient is further being admitted in ICU. [facility] Medical History (Updated 08/21/24 @ 12:32 by [...] cell carcinoma Atherosclerosis of coronary artery of [place] heart without angina pectoris Pneumonia Non-Hodgkin lymphoma [...] 12/24/23 Unknown Rx Basilio 3 Sensor device) 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,raw sampler,cont #1 ea 12/24/23 Unknown Rx (FreeStyle Basilio 3 [place]) furosemide 40 mg tablet (Lasix) 20 mg [...] 71.0 H, Lymph % (Auto) 15.2 L, [place] % (Auto) 10.5 H, Eos % (Auto) [...] Sens 97 H*, [place] [address] H, Total Protein 6.2, Albumin 3.5, Globulin2.7, Albumin/Globulin Ratio 1.3 08/21/24 11:28: Urine Color Cancelled, Urine Clarity Cancelled, Urine pH Cancelled, Ur Specific [place] Cancelled, U Specif Grav (Refrac) Cancelled, Urine [...] not excluded within the right lower lobe. Tcby-yf-bmsxxeeb pulmonary edema. Median sternotomy wires. Cardiac silhouette is unchanged. No pneumothorax. Reading Location: [facility] Assessment & Plan Assessment/Plan (1) [...] chronic mild CO2 retention. Continue BiPAP support. Steel Barrel Reamer consulted. 2. Acute on chronic HFrEF: proBNP [...] a heater probe. Clip was placed. Clip backend java developer: [employer]. 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 8. Chronic CAD [...] will or advanced directive. His power of family law attorney for healthcare his but also with son [...] shock if needed Total time spent in qgri-bl-ckqo encounter in discussion of advanced directive 17 minutes. Laboratory Results 08/21/24 10:45: WBC 10.3, RBC 2.83 L, Hgb 8.7 L, Hct 28.8 L, MCV 101.8 H, MCH 30.7, MCHC 30.2 L, RDW Std Deviation 68.8 H, RDW Coeff of Rafael 18.4 H, Plt Count 226, MPV 11.3, Immature Gran % (Auto) 1.100 H, Neut % (Auto) 71.0 H, Lymph % (Auto) 15.2 L, [place] % (Auto) 10.5 H, Eos % (Auto) [...] Sens 97 H*, [place] [address] H, Total Protein 6.2, Albumin 3.5, Globulin2.7, [...] not excluded within the right lower lobe. Uuew-ze-suhekrbh pulmonary edema. Median sternotomy wires. Cardiac silhouette is unchanged. No pneumothorax. Reading Location: [facility] Charges/Coding Visit Charges Inpatient E&M: 54784 Init Hosp L3 Procedures Hospitalists Procedures: 06109 Advncd Care Plan 30 Min 08/21/24 1254 [...] no intubation similar to previous hospitalization. 08/21/24 1259<Electronically signed by Clive Sharp MD> Cosigner Signature (if applicable): cc: Dr. Donna Will MD; Dr. Clive Sharp MD ~* Signed [facility] Work Phone[facility] Phone: [facility] Work Phone: Hospital Discharge instructionsAmbulatory Orders* Prior Authorization Referral - ONC/HEM Location: None Selected [facility] Work Phone: Progress note Author Donna Will [facility] Note Date/Time December 06, 2024 9 :22am [facility] [address] [place] [address] OFFICE VISIT Date of Service: 12/06/24 MR#: [id number] Acct: [id number] Name: SAL ALONZO Rep #: [id number] : 1950 Provider: Dr. Paula Will MD Age/Sex: 74/M Location: [email or web address] Status: Signed Intake Vital Signs 09/16/24 10:08 [...] Annual/Physical Chief Complaint: Cramps in bilateral hands Hearing Aid Technician Required: No Accompanied by: Son Is patient [...] 12/24/23 5 Rx Basilio 3 Sensor device) 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,raw sampler,cont #1 ea 12/24/23 12/06/24 Rx (FreeStyle Basilio 3 [place]) ferrous sulfate 325 mg (65 mg 325 [...] chronic respiratory failure with hypercapnia Type 2 IN (myocardial infarction) MRSA (methicillin resistant staph aureus) [...] cell carcinoma Atherosclerosis of coronary artery of [place] heart without angina pectoris Pneumonia Non-Hodgkin lymphoma [...] Cosigner Signature: Date (if applicable) CC: ~ [facility] Work Phone: Progress note Author Tobi Zapata [facility] Note Date/Time December 06, 2024 1 1:24am [facility] [address] [address] OFFICE VISIT Date of Service: 12/06/24 1021 MR#: [id number] Acct: [id number] Name: SAL ALONZO Jr. Rep #: [id number] : 1950 From: Tobi Zapata MD Age/Sex: 74/M Location: [facility] Status: Signed HPI Subjective Date of Service [...] chronic respiratory failure with hypercapnia Type 2 IN (myocardial infarction) MRSA (methicillin resistant staph aureus) [...] cell carcinoma Atherosclerosis of coronary artery of [place] heart without angina pectoris Pneumonia Non-Hodgkin lymphoma [...] 12/24/23 5 Rx Basilio 3 Sensor device) 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,raw sampler,cont #1 ea 12/24/23 12/06/24 Rx (FreeStyle Basilio 3 [place]) ferrous sulfate 325 mg (65 mg 325 [...] applicable) CC: Dr. Donna Will MD ~ [place] [employer] Work Phone: Summary Purpose Family History Relationship [...] No May 07, 2021 5:39pm Power of Bleacher Lard No May 07 5:39pm Advance Directive Response Recorded Date/ Time Advance Directives No July 24 8:49am Living Will No July 24, 2021 8 :49am Power of [place]acher Lard No July 24, 2021 8:49am Advance Directive Response Recorded Date/ Time Advance Directives No July 24 8:49am Living Will No August 06, 2021 12:10pm Power of [place]acher Lard No August 06 12:10pm Advance Directive Response Recorded Date/ Time Advance Directives No July 24 8:49am Living Will No August 06, 2021 4:39pm Power of Bleacher Lard Yes August 06 4:39pm Advance Directive Response Recorded Date/ Time Name of Medical Power of Bleacher Lard Freida Cheri August 06, 2021 4:39pm Advance Directives No July 24 8:49am Living Will No August 06, 2021 4:39pm Power of Bleacher Lard Yes August 06 4:39pm Advance Directive Response Recorded Date/ Time Name of Medical Power of Bleacher Lard Freida Cheri August 06, 2021 4:39pm Advance Directives No July 24 8:49am Living Will No October 01, 2021 2:51pm Power of Bleacher Lard No October 01 2:51pm Advance Directive Response Recorded Date/ Time Name of Medical Power of Bleacher Lard Freida Cheri August 06, 2021 4:39pm Name of Medical Power of Bleacher Lard Freida Cheri October 01, 2021 7:57pm Advance Directives No July 24 8:49am Living Will Yes October 01, 2021 7:57pm Power of Bleacher Lard Yes October 01 7:57pm Advance Directive Response Recorded Date/ Time Name of Medical Power of Bleacher Lard Freida Cheri August 06, 2021 4:39pm Name of Medical Power of Bleacher Lard Freida Cheri October 01, 2021 7:57pm Name of Medical Power of Bleacher Lard freida armando October 23, 2021 2:40pm Advance Directives No July 24 8:49am Living Will Yes October 23 2:40pm Power of Bleacher Lard Yes October 23 2:40pm Advance Directive Response Recorded Date/ Time Name of Medical Power of Bleacher Lard Freida Cheri October 01, 2021 7:57pm Name of Medical Power of Bleacher Lard freidabinh roberts October 23, 2021 2:40pm Name of Medical Power of Bleacher Lard FREIDA CHERI December 08, 2021 5:32pm Advance Directives No July 24 8:49am Living Will Yes December 08 5:32pm Power of Bleacher Lard Yes December 08, 2021 5:32pm Advance Directive Response Recorded Date/ Time Name of Medical Power of Bleacher Lard Freida Cheri October 01, 2021 7:57pm Name of Medical Power of Bleacher Lard freida [email or web address] October 23, 2021 2:40pm Name of Medical Power of Bleacher Lard FREIDA CHERI December 08, 2021 8:10pm Advance Directives No July 24 8:49am Living Will Yes December 08 8:10pm Power of Bleacher Lard Yes December 08, 2021 8:10pm Advance Directive Response Recorded Date/ Time Name of Medical Power of Bleacher Lard Freidabinh Alonzo October 01, 2021 6:57pm Name of Medical Power of Bleacher Lard freida roberts October 23, 2021 1:40pm Name of Medical Power of Bleacher Lard FREIDA CHERI December 08, 2021 7:10pm Advance Directives No July 24 7:49am Living Will Yes December 08 7:10pm Power of Bleacher Lard Yes December 08, 2021 7:10pm Advance Directive Response Recorded Date/ Time Name of Medical Power of Bleacher Lard freida armando October 23, 2021 1:40pm Name of Medical Power of Bleacher Lard FREIDA CHERI December 08, 2021 7:10pm Name of Medical Power of Bleacher Lard joseph alonzo February 14, 2022 4:33pm Advance Directives No July 24 7:49am Living Will Yes February 14 4:33pm Power of Bleacher Lard Yes February 14, 2022 4:33pm Advance Directive Response Recorded Date/ Time Name of Medical Power of Bleacher Lard freida roberts October 23, 2021 1:40pm Name of Medical Power of Bleacher Lard FREIDA ALONZO December 08, 2021 7:10pm Name of Medical Power of Bleacher Lard freida alonzo February 14, 2022 10:48pm Advance Directives No July 24 7:49am Living Will No February 14 10:48pm Power of Bleacher Lard Yes February 14, 2022 10:48pm Advance Directive Response Recorded Date/ Time Name of Medical Power of Bleacher Lard FREIDA ALONZO December 08, 2021 7:10pm Name of Medical Power of Bleacher Lard freida alonzo February 14, 2022 10:48pm Advance Directives No July 24 7:49am Living Will No February 14 10:48pm Power of Bleacher Lard Yes February 14, 2022 10:48pm Advance Directive Response Recorded Date/ Time Name of Medical Power of Bleacher Lard freida alonzo February 14, 2022 11:48pm Advance Directives No July 24 8:49am Living Will No February 14 11:48pm Power of Bleacher Lard Yes February 14, 2022 11:48pm Advance Directive Response Recorded Date/ Time Advance Directives No July 24 8:49am Living Will No February 14 11:48pm Power of Bleacher Lard Yes February 14, 2022 11:48pm Advance Directive Response Recorded Date/ Time Advance Directives No August 08 3:27pm Living Will No August 29, 2022 4 :36pm Power of Bleacher Lard No August 29, 2022 4:36pm Advance Directive Response Recorded Date/ Time Name of Medical Power of Bleacher Lard November 15, 2022 3:27pm Advance Directives No August 08 3:27pm Living Will No November 15, 2022 3:27pm Power of Bleacher Lard Yes October 3:27pm Advance Directive Response Recorded Date/ Time Name of Medical Power of Bleacher Lard -Freida Romero November 15, 2022 8:16pm Advance Directives No August 08 3:27pm Living Will No November 15, 2022 8:16pm Power of Bleacher Lard Yes October 8:16pm Advance Directive Response Recorded Date/ Time Name of Medical Power of Bleacher Lard -Freida Romero November 15, 2022 7:16pm Advance Directives No August 08 2:27pm Living Will No November 15, 2022 7:16pm Power of Bleacher Lard Yes October 7:16pm Advance Directive Response Recorded Date/ Time Name of Medical Power of Bleacher Lard -Freida Romero November 15, 2022 7:16pm Advance Directives No August 08 2:27pm Living Will No February 28 11:16am Power of Bleacher Lard No February 28, 024 11:16am Advance Directive Response Recorded Date/ Time Name of Medical Power of Bleacher Lard -Freida Romero November 15, 2022 7:16pm Advance Directives No August 08 2:27pm Living Will No February 28 5:08pm Power of Bleacher Lard No February 28, 024 5:08pm Advance Directive Response Recorded Date/ Time Name of Medical Power of Bleacher Lard -Freida Romero November 15, 2022 7:16pm Name of Medical Power of Bleacher Lard freida March 16, 2023 1:59pm Advance Directives No August 08 2:27pm Living Will Yes March 16 1:59pm Power of Bleacher Lard Yes March 16, 2023 1:59pm Advance Directive Response Recorded Date/ Time Name of Medical Power of Bleacher Lard freida March 16, 2023 1:59pm Advance Directives No August 08 2:27pm Living Will No March 16 5:33pm Power of Bleacher Lard No March 16, 2023 5:33pm Advance Directive Response Recorded Date/ Time Name of Medical Power of Bleacher Lard freida March 16, 2023 2:59pm Advance Directives No August 08 3:27pm Living Will No March 16 6:33pm Power of Bleacher Lard No March 16, 2023 6:33pm Advance Directive Response Recorded Date/ Time Living Will No March 16 6:33pm Do you have a Healthcare Power of Bleacher Lard? No March 16, 2023 6:33pm Living Will No November 14, 2023 9:10pm Do you have a Healthcare Power of Bleacher Lard? No November 14, 2023 9:10pm Living Will No April 05, 025 10:43pm Do you have a Healthcare Power of Bleacher Lard? Yes April 05, 2024 10:43pm Name of Medical Power of Bleacher Lard Ray Alonzo April 05, 2024 10:43pm Do you have a Healthcare Power of Bleacher Lard? Yes June 20, 2024 8:00pm Name of Medical Power of Bleacher Lard ray alonzo June 20, 2024 8:00pm Advance Directives No August 08 3:27pm Advance Directive Response Recorded Date/ Time Living Will No March 16 6:33pm Do you have a Healthcare Power of Bleacher Lard? No March 16, 2023 6:33pm Living Will No April 05, 025 10:43pm Do you have a Healthcare Power of Bleacher Lard? Yes April 05, 2024 10:43pm Name of Medical Power of Bleacher Lard Ray Alonzo April 05, 2024 10:43pm Do you have a Healthcare Power of Bleacher Lard? No July 08, 2024 12:44pm Do you have a Healthcare Power of Bleacher Lard? Yes June 20, 2024 8:00pm Name of Medical Power of Bleacher Lard ray alonzo June 20, 2024 8:00pm Advance Directives No August 08 3:27pm Advance Directive Response Recorded Date/ Time Living Will No March 16 6:33pm Do you have a Healthcare Power of Bleacher Lard? No March 16, 2023 6:33pm Do you have a Healthcare Power of Bleacher Lard? No July 08, 2024 12:44pm Do you have a Healthcare Power of Bleacher Lard? Yes August 21, 2024 10:52am Do you have a Healthcare Power of Bleacher Lard? Yes June 20, 2024 8:00pm Name of Medical Power of Bleacher Lard ray alonzo June 20, 2024 8:00pm Advance Directives No August 08 3:27pm Advance Directive Response Recorded Date/ Time Living Will No March 16 6:33pm Do you have a Healthcare Power of Bleacher Lard? No March 16, 2023 6:33pm Do you have a Healthcare Power of Bleacher Lard? No July 08, 2024 12:44pm Do you have a Healthcare Power of Bleacher Lard? Yes August 21, 2024 2:04pm Do you have a Healthcare Power of Bleacher Lard? Yes June 20, 2024 8:00pm Name of Medical Power of Bleacher Lard ray alonzo June 20, 2024 8:00pm Advance Directives No August 08 3:27pm Advance Directive Response Recorded Date/ Time Living Will No March 16 6:33pm Do you have a Healthcare Power of Bleacher Lard? No March 16, 2023 6:33pm Do you have a Healthcare Power of Bleacher Lard? Yes August 21, 2024 2:04pm Advance Directives [...] ENCEPHALOPATHY ACUTE METABOLIC ENCEPHALOPATHY ACUTE METABOLIC ENCEPHALOPATHY [facility] FU hyperglycemmia ftt adult ftt adult ftt [...] Hypoxia COVID-19 Atherosclerosis of coronary artery of [place] heart without angina pectoris Hyperlipidemia Acute hypoxemic respiratory failure due to COVID-19 Acute alteration in mental status Acute respiratory failure with hypoxia Hypoxemia Pneumonia Pneumonia Asthma Atherosclerosis of coronary artery of [place] heart without angina pectoris Chronic bronchitis History [...] Hypoxia COVID-19 Atherosclerosis of coronary artery of [place] heart without angina pectoris Hyperlipidemia Acute hypoxemic respiratory failure due to COVID-19 Acute alteration in mental status Acute respiratory failure with hypoxia Hypoxemia Pneumonia Pneumonia Asthma Atherosclerosis of coronary artery of [place] heart without angina pectoris Chronic bronchitis History [...] Pneumonia Asthma Atherosclerosis of coronary artery of [place] heart without angina pectoris Chronic bronchitis History [...] Pneumonia Asthma Atherosclerosis of coronary artery of [place] heart without angina pectoris Chronic bronchitis History [...] Pneumonia Asthma Atherosclerosis of coronary artery of [place] heart without angina pectoris Chronic bronchitis History [...] Hypoxia Leukocytosis Atherosclerosis of coronary artery of [place] heart without angina pectoris Essential hypertension Hyperlipidemia [...] Hypoxia Leukocytosis Atherosclerosis of coronary artery of [place] heart without angina pectoris Essential hypertension Hyperlipidemia [...] Hypoxia Leukocytosis Atherosclerosis of coronary artery of [place] heart without angina pectoris Essential hypertension Hyperlipidemia [...] Leukocytosis Pneumonia Atherosclerosis of coronary artery of [place] heart without angina pectoris Essential hypertension Hyperlipidemia [...] [facility] MED ONC [id number] Reason for Visit Hypoxia Leukocytosis Pneumonia Atherosclerosis of coronary artery of [place] heart without angina pectoris Essential hypertension Hyperlipidemia [...] FROM DR [facility] end[facility] [id number] MED ONC BILATERAL PNEUMONIA Reason [...] FROM DR [facility]ATA [facility] endo [id number] [facility] MED ONC BILATERAL PNEUMONIA BILATERAL [...] FROM DR [facility]ATA [facility] Cap endo [id number] [facility] MED ONC BILATERAL PNEUMONIA BILATERAL [...] FROM DR ZAPATA [facility] Cap endo [id number] [facility] MED ONC BILATERAL PNEUMONIA BILATERAL [...] in remission Atherosclerosis of coronary artery of [place] heart without angina pectoris Chronic hypoxemic respiratory [...] in remission Atherosclerosis of coronary artery of [place] heart without angina pectoris Chronic hypoxemic respiratory failure COPD (chronic obstructive pulmonary disease) Essential hypertension GI bleed Iron deficiency anemia Obesity Type 2 diabetes mellitus Anemia Iron deficiency anemia 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 Atherosclerosis of coronary artery of [place] heart without angina pectoris Essential hypertension Hyperlipidemia [...] in remission Atherosclerosis of coronary artery of [place] heart without angina pectoris Chronic hypoxemic respiratory failure COPD (chronic obstructive pulmonary disease) Essential hypertension GI bleed Iron deficiency anemia Obesity Type 2 diabetes mellitus Anemia Iron deficiency anemia 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 Atherosclerosis of coronary artery of [place] heart without angina pectoris Essential hypertension Hyperlipidemia [...] Heart failure Atherosclerosis of coronary artery of [place] heart without angina pectoris Chronic kidney disease [...] Heart failure Atherosclerosis of coronary artery of [place] heart without angina pectoris Chronic kidney disease [...] Heart failure Atherosclerosis of coronary artery of [place] heart without angina pectoris Chronic kidney disease [...] Heart failure Atherosclerosis of coronary artery of [place] heart without angina pectoris Chronic kidney disease [...] BLEED SEVERE ACUTE ON CHRONIC ANEMIA/GI BLEED [facility] Discharge FU Reason for Visit Anemia [...] BLEED SEVERE ACUTE ON CHRONIC ANEMIA/GI BLEED [facility] Discharge FU [employer]WORK Reason for [...] BLEED SEVERE ACUTE ON CHRONIC ANEMIA/GI BLEED [facility] Discharge FU [facility] LABWORK 1 [...] ejection fraction) Atherosclerosis of coronary artery of [place] heart without angina pectoris Essential hypertension History [...] BLEED SEVERE ACUTE ON CHRONIC ANEMIA/GI BLEED [facility] Discharge FU [facility]OM[facility]WORK LABWORK 1 [...] 9:29am STANDING ORDWER WEEKLY BMP, CBC [facility] June 28, 2024 10:04am ACTIV[facility] June 29, 2024 9:43am Reason for Visit Admit Date Bronchiectasis March 05, 2024 1 2:53pm Chronic hypoxemic respiratory failure [facility] 2024 12:53pm COPD (chronic obstructive pulmonary dise [...] 2:1 4pm Chronic hypoxemic respiratory failure [facility] 2024 2:14pm COPD (chronic obstructive pulmonary [...] 2024 2:1 4pm Chronic hypoxemic respiratory failure [facility] 2024 2:14pm COPD (chronic obstructive pulmonary dise [facility]) May 18, 2024 2:14pm Nicotine dependence, cigarettes, [...] 9:29am STANDING ORDWER WEEKLY BMP, CBC [facility] June 28, 2024 10:04am ACTIVASE June 29, [...] 2024 2:1 4pm Chronic hypoxemic respiratory failure [facility] 2024 2:14pm COPD (chronic obstructive pulmonary dise [...] 2024 2:1 4pm Chronic hypoxemic respiratory failure [facility] 2024 2:14pm COPD (chronic obstructive pulmonary dise [...] August 21, 2024 12:1 2pm Type 2 IN (myocardial infarction) July 262024 12:12pm Acute and [...] 2024 2:1 4pm Chronic hypoxemic respiratory failure [facility] 2024 2:14pm COPD (chronic obstructive pulmonary dise [...] hypercapnia August 21, 2024 12:12pm Type 2 IN (myocardial infarction) July 262024 12:12pm Acute on [...] [facility] September 13, 2024 8:50 am [facility] Discharge FU September 16, 2024 10:0 [...] (CKD) August 21, 2024 12:12pm Type 2 IN (myocardial infarction) July 262024 12:12pm Acute on [...] [facility] September 13, 2024 8:50 am [facility] Discharge FU September 16, 2024 10:0 [...] (CKD) August 21, 2024 12:12pm Type 2 IN (myocardial infarction) July 262024 12:12pm Acute on [...] (CKD) August 21, 2024 12:12pm Type 2 IN (myocardial infarction) July 262024 12:12pm Acute on [...] [facility] September 13, 2024 8:50 am [facility] Discharge September 16, 2024 10:0 0am [...] (CKD) August 21, 2024 12:12pm Type 2 IN (myocardial infarction) July 262024 12:12pm Acute on [...] [facility] September 13, 2024 8:50 am [facility] Discharge FU September 16, 2024 10:0 [...] (CKD) August 21, 2024 12:12pm Type 2 IN (myocardial infarction) July 262024 12:12pm Acute on [...] [facility] September 13, 2024 8:50 am [facility] Discharge September 16, 2024 10:0 0am [...] (CKD) August 21, 2024 12:12pm Type 2 IN (myocardial infarction) July 262024 12:12pm Acute on [...] section and content) DATE CREATED AUTHOR 01/29/2019 [facility] DATE CREATED AUTHOR AUTHOR'S ORGANIZ ATION 03/23/2023 [facility] DATE CREATED AUTHOR AUTHOR'S ORGANIZ ATION 12/09/2024 [facility] Goals (unrecognized section and content) Goals [...] Greenberg , Family Provider Active OLEG PIÑA LABORATORY INSPECTOR-C Primary Care Provider Active Team Status: Inactive Member Role Status Dates OLEG PIÑA LABORATORY INSPECTOR-C Primary Care Provider, Referring Provider Active Dr. Tobi Zapata MD Attending Provider Active Team Status: Active Member Role Status Dates OLEG PIÑA LABORATORY INSPECTOR-C Primary Care Provider Active Dr. Margie Joy DO Emergency Provider Active Dr. Janice Mackey MD Admit Provider, Attending Provider, Other Provider Active Team Status: Active Member Role Status Dates OLEG PIÑA LABORATORY INSPECTOR-C Primary Care Provider Active Dr. Margie Joy DO Emergency Provider Active Dr. Janice Mackey MD Admit Provider, Other Provider Active Dr. Suze Rosas MD Attending Provider, Other Provider Active Team Status: Active Member Role Status Dates OLEG PIÑA LABORATORY INSPECTOR-C Primary Care Provider Active Dr. Margie Joy DO Emergency Provider Active Dr. Janice Mackey MD Admit Provider, Other Provider Active Dr. Suze Rosas MD Other Provider Active Dr. Jordan Ortiz MD Attending Provider Active Team Status: Active Member Role Status Dates OLEG PIÑA LABORATORY INSPECTOR-C Primary Care Provider Active Dr. Margie Joy DO Emergency Provider Active Dr. Janice Mackey MD Admit Provider, Other Provider Active Dr. Jordan Ortiz MD Referring Provider, Other Provid er Active Dr. Suze Rosas MD Other Provider Active Dr. Khai Galeana DO Attending Provider Active Team Status: Active Member Role Status Dates OLEG PIÑA , LABORATORY INSPECTOR-C Primary Care Provider Active Dr. Khai Galeana , Attending Provider Active Team Status: Active Member Role Status Meagan PIÑA , LABORATORY INSPECTOR-C Primary Care Provider Active Dr. Margie Joy DO Emergency Provider Active Dr. Janice Mackey MD Admit Provider, Other Provider Active Dr. Jordan Ortiz MD Attending Provider, Other Provid er Active Dr. Suze Rosas MD Other Provider Active Team Status: Inactive Member Role Status Dates OLEG PIÑA , LABORATORY INSPECTOR-C Primary Care Provider, Referring Provider Active Dr. Khai Galeana , Attending Provider Active Team Status: Inactive Member Role Status Meagan PIÑA , LABORATORY INSPECTOR-C Primary Care Provider, Referring Provider Active Dr. Anthony Singleton DO Attending Provider Active Team Status: Active Member Role Status Meagan PIÑA , LABORATORY INSPECTOR-C Primary Care Provider Active Dr. Faisal Walker MD Emergency Provider Active Dr. Tobi Shannon MD Admit Provider, Attending Provider, Other Provider Active Team Status: Active Member Role Status Meagan PIÑA , LABORATORY INSPECTOR-C Primary Care Provider Active Dr. Faisal Walker MD Emergency Provider Active Dr. Tobi Shannon MD Admit Provider, Referring Provider, Other Provider Active Dr. Suze Rosas MD Other Provider Active Dr. Alexi Roblero MD Attending Provider, Other Provid er Active Dr. Anthony Singleton DO Other Provider Active Dr. Rambo Bruner MD Other Provider Active Dr. Afshin Pablo MD Other Provider Active More Pulido LABORATORY INSPECTOR, LABORATORY INSPECTOR-C Other Provider Active Team Status: Active Member Role Status Meagan PIÑA , LABORATORY INSPECTOR-C Primary Care Provider Active Dr. Faisal Walker MD Emergency Provider Active Dr. Tobi Shannon MD Admit Provider, Other Provide r Active Dr. Suze Rosas MD Attending Provider, Other Provider Active Dr. Alexi Roblero MD Other Provider Active Dr. Anthony Singleton , Other Provider Active Dr. Rambo Bruner MD Other Provider Active Dr. Afshin Pablo MD Other Provider Active More Pulido LABORATORY INSPECTOR, LABORATORY INSPECTOR-C Other Provider Active Team Status: Active Member Role Status Dates OLEG PIÑA , LABORATORY INSPECTOR-C Primary Care Provider Active Dr. Faisal Walker MD Emergency Provider Active Dr. Tobi Shannon MD Admit Provider, Other Provide r Active Dr. Alexi Roblero MD Other Provider Active Dr. Anthony Singleton DO Attending Provider, Other Provide r Active Dr. Rambo Bruner MD Other Provider Active Dr. Afshin Pablo MD Other Provider Active More Pulido LABORATORY INSPECTOR, LABORATORY INSPECTOR-C Other Provider Active Dr. Jordan Ortiz MD Other Provider Active Dr. Suze Rosas MD Other Provider Active Team Status: Active Member Role Status Meagan PIÑA , LABORATORY INSPECTOR-C Primary Care Provider Active Dr. Faisal Walker MD Emergency Provider Active Dr. Tobi Shannon MD Admit Provider, Other Provide r Active Dr. Alexi Roblero MD Other Provider Active Dr. Anthony Singleton DO Other Provider Active Dr. Rambo Bruner MD Other Provider Active Dr. Afshin Pablo MD Other Provider Active More Pulido LABORATORY INSPECTOR, LABORATORY INSPECTOR-C Other Provider Active Dr. Jordan Ortiz MD Attending Provider, Other Provid er Active Dr. Suze Rosas MD Other Provider Active Team Status: Active Member Role Status Meagan PIÑA , LABORATORY INSPECTOR-C Primary Care Provider Active Dr. Tobi Zapata MD Attending Provider, Referring Pro vider Active Team Status: Inactive Member Role Status Meagan PIÑA , LABORATORY INSPECTOR-C Primary Care Provider Active Dr. Margie Joy DO Emergency Provider Active Dr. Janice Mackey MD Admit Provider, Other Provider Active Dr. Jordan Ortiz MD Attending Provider Active Dr. Suze Rosas MD Other Provider Active Team Status: Inactive Member Role Status Dates OLEG BRYANS , LABORATORY INSPECTOR-C Primary Care Provider Active Dr. Khai Galeana DO Attending Provider Active Team Status: Inactive Member Role Status Dates OLEG BRYANS , LABORATORY INSPECTOR-C Primary Care Provider, Attending Provider Active Team Status: Inactive Member Role Status Dates OLEG PIÑA , LABORATORY INSPECTOR-C Primary Care Provider Active Dr. Faiasl Walker MD Emergency Provider Active Dr. Tobi Shannon MD Admit Provider, Other Provide r Active Dr. Alexi Roblero MD Other Provider Active Dr. Anthony Singleton DO Other Provider Active Dr. Rambo Bruner MD Other Provider Active Dr. Afshin Pablo MD Other Provider Active More Pulido LABORATORY INSPECTOR, LABORATORY INSPECTOR-C Other Provider Active Dr. Jordan Ortiz MD Attending Provider Active Dr. Suze Rosas MD Other Provider Active Team Status: Active Member Role Status Dates OLEGNIXON ONEALPIÑA , LABORATORY INSPECTOR-C Primary Care Provider Active Dr. Anthony Singleton DO Attending Provider, Other Provide r Active Team Status: Inactive Member Role Status Dates OLEG BRYANS , LABORATORY INSPECTOR-C Primary Care Provider Active Dr. Anthony Singleton DO Attending Provider Active Team Status: Active Member Role Status Dates OLEG BRYANS , LABORATORY INSPECTOR-C Primary Care Provider Active Dr. Anthony Singleton DO Attending Provider Active Team Status: Inactive Member Role Status Dates OLEG BRYANS , LABORATORY INSPECTOR-C Primary Care Provider, Referring Provider Active More Pulido LABORATORY INSPECTOR, LABORATORY INSPECTOR-C Attending Provider Active Team Status: Inactive Member Role Status Dates OLEG BRYANS , LABORATORY INSPECTOR-C Primary Care Provid er, Attending Provider, Referring Provider Active Team Status: Active Member Role Status Dates OLEG BRYANS , LABORATORY INSPECTOR-C Primary Care Provider Active Dr. Anthony Singleton DO Attending Provider, Referring Provider, Other Provider Active Team Status: Inactive Member Role Status Meagan BRYANS , LABORATORY INSPECTOR-C Primary Care Provider Active Dr. Khai Galeana DO Attending Provider, Referring Provider Active Dr. Nate Bearden MD Other Provider Active Team Status: Active Member Role Status Dates Dr. Mario Greenberg DO Family Provider Active Dr. Donna Will MD Primary Care Provider Active Team Status: Inactive Member Role Status Dates OLEG BRYANS , LABORATORY INSPECTOR-C Primary Care Provider Active Dr. Donna Will MD Attending Provider Active Team Status: Inactive Member Role Status Dates OLEG PIÑA , LABORATORY INSPECTOR-C Primary Care Provider, Referring Provider Active CHARLES Active Dr. Khai Galeana DO Attending Provider Active Team Status: Inactive Member Role Status Meagan BRYANS , LABORATORY INSPECTOR-C Primary Care Provider Active Dr. Nate Bearden MD Attending Provider, Referr ing Provider Active Team Status: Inactive Member Role Status Dates Dr. Donna Will MD Primary Care Provider Active Adam Freeman MD Emergency Provider Active Team Status: Active Member Role Status Dates OLEG PIÑA LABORATORY INSPECTOR-C Primary Care Provider Active Dr. Khai Galeana DO Attending Provider, Referring Provider Active Dr. Tobi Zapata MD Other Provider Active Team Status: Inactive Member Role Status Dates OLEG PIÑA LABORATORY INSPECTOR-C Referring Provider Active Dr. Norm Mello MD Attending Provider Active Dr. Donna Will MD Primary Care Provider Active Team Status: Inactive Member Role Status Dates Dr. Tobi Zapata MD Attending Provider Active Dr. Donna Will MD Primary Care Provider, Referri ng Provider Active Team Status: Inactive Member Role Status Dates Dr. Donna Will MD Primary Care Provider, Referri ng Provider Active Martha Dodson LABORATORY INSPECTOR, LABORATORY INSPECTOR-C Attending Provider Active Team Status: Inactive Member [...] Inactive Member Role Status Dates OLEG PIÑA LABORATORY INSPECTOR-C Primary Care Provider Active Dr. Khai Galeana [...] Provider, Referri ng Provider Active More Pulido LABORATORY INSPECTOR, LABORATORY INSPECTOR-C Attending Provider Active Team Status: Inactive Member Role Status Dates More Pulido LABORATORY INSPECTOR, LABORATORY INSPECTOR-C Attending Provider Active Dr. Donna Will MD [...] Dr. Khai Galeana DO Attending Provider Active Dr. Clive [...] Roberto Escalante MD Other Provider Active Dr. Maid Tavarez MD Other Provider Active Dr. Zhang [...] Provider, Referri ng Provider Active Jennifer Galdamez LABORATORY INSPECTOR, LABORATORY INSPECTOR-C Attending Provider Active Team Status: Active Member Role Status Dates Dr. Donna Will MD Primary Care Provider Active Jennifer Galdamez LABORATORY INSPECTOR, LABORATORY INSPECTOR-C Attending Provider Active Team Status: Inactive Member Role Status Dates Dr. Donna Will MD Primary Care Provider Active Jennifer Galdamez LABORATORY INSPECTOR, LABORATORY INSPECTOR-C Attending Provider Active Team Status: Active Member [...] 05, 2024 End: March 05, 2024 SORIN Groe Referring Provider Active Start: March 05, 2024 [...] 05, 2024 End: April 08, 2024 Dr. Aleix Roblero MD Other Provider Active Star t: [...] Active Start : April 06, 2024 Dr. Eliazbeth Wilson MD Other Provider Active Star t: [...] End: April 27, 2024 Martha Dodson NP, LABORATORY INSPECTOR-C Attending Provider Active Start: April 27, 2024 [...] 20, 2024 End: June 25, 2024 Dr. Jordna Ortiz MD Attending Provider Active Start: June [...] Active Member Role Status Dates Dr. Donna iWll MD Primary Care Provider Active Start: June [...] Active Star t: June 24, 2024 Dr. Wilberot Villafuerte MD Other Provider Active Start: June 24, 2024 Team Status: Active Member Role Status Dates Dr. Donna Will MD Primary Care Provider Active Start: June 25, 2024 Dr. Eav Marie DO Emergency Provider Active Start: June 25, 2024 Dr. Mable Pirtchard MD Admit Provider Active Star t: June [...] July 12, 2024 Gris M Rufener , LABORATORY INSPECTOR-C Referring Provider Active Start: July 12, 2024 [...] Status: Active Member Role Status Dates OLEG PIAÑ NP-C Primary Care Provider Active Start: July [...] End: April 27, 2024 Martha Dodson NP LABORATORY INSPECTOR-C Attending Provider Active Start: April 27, 2024 [...] Star t: June 22, 2024 Dr. Nikolai Kelelr DO Other Provider Active St art: June [...] Provider Active Start: June 23, 2024 Dr. Jordna Ortiz MD Other Provider Active Star t: [...] July 14, 2024 Dr. Wilberto Villafueret MD Attending Provider Active Start: July 14, [...] 21, 2024 End: August 25, 2024 Dr. Yoile Zapata MD Other Provider Active St art: [...] End: August 25, 2024 Katelynn Greenberg NP, LABORATORY INSPECTOR-C Other Provider Active Start: August 21, 2024 [...] S tart: August 22, 2024 Dr. Claudine Andraed MD Other Provider Active Start: August 22, [...] Active Sta rt: August 24, 2024 Dr. Ashnati Dugan MD Other Provider Active Sta rt: [...] Provider Active St art: August 24, 2024 Linad Huizar LABORATORY INSPECTOR-C Other Provider Active Sta rt: August 24, 2024 Katelynn Greenberg NP, LABORATORY INSPECTOR-C Other Provider Active Start: August 24, 2024 [...] art: August 25, 2024 Linda Bhupendra , LABORATORY INSPECTOR-C Other Provider Active Sta rt: August 25, 2024 Katelynn Greenberg NP, LABORATORY INSPECTOR-C Other Provider Active Start: August 25, 2024 [...] Active Start: June 21, 2024 Dr. Marvin Caots MD Other Provider Active Start : June [...] Start : June 22, 2024 Dr. Dimas Alavrenga MD Other Provider Active Start: June 22, [...] Provider Active Start: June 22, 2024 Dr. hCicho Carson MD Attending Provider Activ e Start: [...] Active Start: June 25, 2024 Dr. Mable Pricthard MD Admit Provider Active Star t: June [...] August 21, 2024 End: August 25, 2024 Linad Huizar NP-C Other Provider Active Sta rt: August 21, 2024 End: August 25, 2024 Katelynn Greenberg NP, LABORATORY INSPECTOR-C Other Provider Active Start: August 21, 2024 [...] Active Start : August 22, 2024 Dr. Joradn Alonzo MD Other Provider Active Sta rt: [...] St art: August 22, 2024 Dr. Roberto Ecsalante MD Other Provider Active Star t: August [...] rt: August 24, 2024 Katelynn Greenberg NP, LABORATORY INSPECTOR-C Other Provider Active Start: August 24, 2024 [...] Active Start: August 25, 2024 Dr. Cisco Cortsé MD Other Provider Active Start: August 25, [...] art: August 25, 2024 Linda Huizar , LABORATORY INSPECTOR-C Other Provider Active Sta rt: August 25, 2024 Katelynn Greenberg NP, LABORATORY INSPECTOR-C Other Provider Active Start: August 25, 2024 [...] St art: June 21, 2024 Dr. Roberto Escalnate MD Other Provider Active Star t: June [...] Provider Active Start: June 22, 2024 Dr. Maid Tavarez MD Other Provider Active Star t: [...] Provider Active Start: June 23, 2024 Dr. Mbale Pritchard MD Admit Provider Active Star t: [...] 08, 2024 End: July 08, 2024 Dr. Maroc Hoffman DO Emergency Provider Active Start: July [...] End: August 25, 2024 Katelynn Greenberg NP, LABORATORY INSPECTOR-C Other Provider Active Start: August 21, 2024 [...] Active St art: August 23, 2024 Dr. aDo Avila DO Other Provider Active Start: August [...] rt: August 24, 2024 Katelynn Greenberg NP, LABORATORY INSPECTOR-C Other Provider Active Start: August 24, 2024 [...] art: August 25, 2024 Linda Huizar , LABORATORY INSPECTOR-C Other Provider Active Sta rt: August 25, 2024 Katelynn Greenberg NP, LABORATORY INSPECTOR-C Other Provider Active Start: August 25, 2024 YANELIS Ley Other Provider Active Start: Cleo [email or web address] Team Status: Active Member Role/Relationship Status Dates OLEG PIÑA LABORATORY INSPECTOR-C Primary Care Provider Active Start: September 13, [...] Active Start: June 22, 2024 Dr. Chicho Casron MD Attending Provider Activ e Start: June [...] Active Star t: June 25, 2024 Dr. Wilebrto Villafuerte MD Other Provider [...] End: August 25, 2024 Katelynn Greenberg NP, LABORATORY INSPECTOR-C Other Provider Active Start: August 21, 2024 [...] Provider Active Start: August 23, 2024 Dr. aMrvin Coats MD Other Provider Active Start : [...] rt: August 24, 2024 Katelynn Greenberg NP, LABORATORY INSPECTOR-C Other Provider Active Start: August 24, 2024 YANELIS Ley Other Provider Active Start: Cleo gabriel [...] rt: August 25, 2024 Katelynn Greenberg NP, LABORATORY INSPECTOR-C Other Provider Active Start: August 25, 2024 [...] End: August 25, 2024 Katelynn Greenberg NP, LABORATORY INSPECTOR-C Nurse Practitioner Active Start: August 21, 2024 [...] Active Start: August 24, 2024 Linda Huizar LABORATORY INSPECTOR-C Nurse Practitioner Active Start: August 24, 2024 Katelynn Greenberg NP, LABORATORY INSPECTOR-C Nurse Practitioner Active Start: August 24, 2024 [...] Practitioner Active Start: August 25, 2024 Dr. eKe York MD Nurse Practitioner Active Start: August 25, 2024 Dr. Jordan Davis DO Nurse Practitioner Active Start: August 25, 2024 Dr. Adriana Goel MD Nurse Practitioner Active S tart: August 25, 2024 Dr. Farida Todd MD Nurse Practitioner Active Start: August 25, 2024 Linda Huizar LABORATORY INSPECTOR-C Nurse Practitioner Active Start: August 25, 2024 Katelynn Greenberg NP, LABORATORY INSPECTOR-C Nurse Practitioner Active Start: August 25, 2024 [...] BE BASED ON THE PRIMARY CLINICAL RECORDS. [facility] [facility]. provides no warranty or guarantee of the accuracy or completeness of information in this document.
[2024-12-25 03:09] LABS: Magnesium 2.0 mg/dL (1.5-2.2)
[2024-12-25] MEDS: 0.9% Normal Saline (1000mL) 1,000 ML 100 ML IV (03:42)
--- NOTE | 2024-12-25 03:54 | PCM.RX.CS ---
Consult Antibiotic Management Pharmacy has been consulted to manage selected antibiotic: Vancomycin Type of Intervention Type of Consult: New start Labs Labs: Sodium 138 mmol/L (133-145) 12/24/24 23:21 Potassium 4.9 mmol/L (3.3-5.1) 12/24/24 23:21 Chloride 98 mmol/L (98-108) 12/24/24 23:21 Carbon Dioxide 26.8 mmol/L (21.0-32.0) 12/24/24 23:21 Anion Gap 13 (5-15) 12/24/24 23:21 BUN 50 mg/dL (4-19) H 12/24/24 23:21 Creatinine 2.04 mg/dL (0.70-1.20) H 12/24/24 23:21 Est GFR (MDRD) Non-Af 33 (>60) L 12/24/24 23:21 BUN/Creatinine Ratio 24.6 RATIO (10-20) H 12/24/24 23:21 Glucose 266 mg/dL (70-99) H 12/24/24 23:21 Microbiology Microbiology: Microbiology 12/25/24 01:25 Urine, Clean Catch Legionella Antigen - Final 12/25/24 01:25 Urine, Clean Catch Streptococcus pneumoniae Antigen (M - Final 12/24/24 23:30 Mucosa - Nose SARS-CoV-2, Influenza & RSV (PCR) - Final Dosing Weight Weight used for dosin.4 kg Estimated Creatinine Clearance Estimated Creatinine Clearance: 38.01 Goal Trough Goal Trough: 15-20 mcg/mL Pharmacy Plan for Drug Dosing Pharmacy Plan for Drug Dosing: Pharmacy Service will continue to monitor and adjust dosing as required. ER DOSE 2GM GIVEN 12/25 @ 51. START 1500MG Q24H AND DRAW TROUGH PRIOR TO 3RD DOSE Follow-Up Labs Follow-Up Labs: Trough: Vancomycin Date/Time Labs Ordered Labs to be done on [date and time ordered]: 12/27 @ 003
[2024-12-25] MEDS: Piperacil/Tazobactam 3.375 GM in 0.9% Normal Saline (50mL MB+) 50 ML IV ×3 (05:33→21:30)
[2024-12-25] MEDS: Budesonide Respules 0.5 MG/2 ML AMPUL.NEB. INHALATION ×2 (06:40→17:51)
[2024-12-25] MEDS: Albuterol 2.5 MG/3 ML VIAL.NEB. INHALATION ×2 (06:40→17:51)
[2024-12-25 07:23] LABS: Hematocrit 26.9 % (40-54); Hemoglobin 8.5 g/dL (13.0-16.5); Immature Granulocytes Count 0.360 X10^3/uL (0.0-0.0); Mean Corp Hgb Conc 31.6 g/dL (32-36); Mean Corpuscular Volume 99.3 fL (80-94); Mean Platelet Vol. 11.2 fl (6.2-12.0); NRBC Flagged by Analyzer 0.4 % (0-5); Platelet Count 257 K/mm3 (150-450); RBC Distribution Width CV 17.0 % (11.6-14.6); RBC Distribution Width SD 61.1 fl (35.1-43.9); Red Blood Count 2.71 M/mm3 (4.6-6.2); White Blood Count 7.5 K/mm3 (4.4-11.0)
[2024-12-25 07:49] LABS: AST(SGOT) 17 U/L (<=37); Alanine Aminotransfer ALT/SGPT 13 U/L (<=46); Albumin, Serum 3.3 g/dL (3.4-4.8); Alkaline Phosphatase 59 U/L (40-129); Anion Gap 14 (5-15); BUN 49 mg/dL (4-19); BUN/Creat Ratio 24.9 RATIO (10-20); Calcium,Total 8.9 mg/dL (7.6-11.0); Carbon Dioxide 22.9 mmol/L (21.0-32.0); Chloride 100 mmol/L (98-108); Estimated Creatinine Clearance 39.12 ml/min (50-250); Globulin 3.3 g/dL (2.2-4.2); Glucose 399 mg/dL (70-99); Potassium 4.6 mmol/L (3.3-5.1)
[2024-12-25] MEDS: Heparin Injection (Vial) 5,000 UNIT/ML VIAL 5000 UNIT SC ×2 (08:56→21:30)
--- NOTE | 2024-12-25 10:02 | PN.HOSP_ITS ---
Reason for Visit Chief Complaint: Dyspnea, increased hypoxia/oxygen needs, URI sxs, subjective F/C. Objective Data Objective Data Vital Signs: Vital Signs Temp Pulse Resp BP Pulse Ox O2 Del Method O2 Flow Rate 98.4 F 68 16 122/55 H 93 Nasal Cannula 5 12/25/24 08:29 12/25/24 08:29 12/25/24 08:29 12/25/24 08:29 12/25/24 08:29 12/25/24 09:27 12/25/24 09:27 Oxygen Flow Rate (L/min) 5 Oxygen Delivery Method Nasal Cannula Weight: 219 lb 2.232 oz Body Mass Index (BMI) 30.7 Intake & Output: Intake and Output for Last 24 Hours 12/23/24 12/24/24 12/25/24 23:59 23:59 23:59 Intake Total 1177.5 / 1177.5 Output Total 875 / 875 Balance 302.5 / 302.5 Lab / Micro Data 12/25/24 06:17 12/25/24 06:17 Labs: Laboratory Results - last 24 hr 12/24/24 23:21: WBC 14.3 H, RBC 2.90 L, Hgb 9.2 L, Hct 28.3 L, MCV 97.6 H, MCH 31.7, MCHC 32.5, RDW Std Deviation 60.4 H, RDW Coeff of Rafael 17.1 H, Plt Count 301, MPV 11.3, Immature Gran % (Auto) 2.100 H, Neut % (Auto) 47.9, Lymph % (Auto) 30.5, [place] % (Auto) 15.2 H, Eos % (Auto) 3.7, Baso % (Auto) 0.6, Absolute Neuts (auto) 6.8, Absolute Lymphs (auto) 4.34, Nucleated RBC % 0.5, Differential Comment SCANNED, Sodium 138, Potassium 4.9, Chloride 98, Carbon Dioxide 26.8, Anion Gap 13, BUN 50 H, Creatinine 2.04 H, Estim Creat Clear Calc 38.01 L, Est GFR (MDRD) Non-Af 33 L, BUN/Creatinine Ratio 24.6 H, Glucose 266 H, Lactic Acid 1.7, Calcium 9.3, Magnesium 2.1 12/24/24 23:21: Magnesium 2.0, NT pro BNP II 2413 H, Procalcitonin 0.14 H 12/25/24 01:25: Urine Color Yellow, Urine Clarity Turbid, Urine pH 6.0, Ur Specific [place] 1.020, Urine Protein 100 H, Urine Glucose (UA) 1000 H, Urine Ketones Negative, Urine Occult Blood 50 H, Urine Nitrite Negative, Urine Bilirubin Negative, Urine Urobilinogen 1 H, Ur Leukocyte Esterase 500 H, Urine RBC 0 SEEN, Urine WBC 50-100 SEEN, Ur Squamous Epith Cells 0-5 SEEN, Ur Renal Epithelial Cell 0-5 SEEN, Urine Bacteria 2+, Urine Mucus 0 SEEN, Urine Yeast 1+ 12/25/24 06:17: WBC 7.5, RBC 2.71 L, Hgb 8.5 L, Hct 26.9 L, MCV 99.3 H, MCH 31.4, MCHC 31.6 L, RDW Std Deviation 61.1 H, RDW Coeff of Rafael 17.0 H, Plt Count 257, MPV 11.2, Immature Gran % (Auto) 4.800 H, Neut % (Auto) 78.2 H, Lymph % (Auto) 12.3 L, [place] % (Auto) 3.1, Eos % (Auto) 0.4, Baso % (Auto) 1.2 H, Absolute Neuts (auto) 5.8, Absolute Lymphs (auto) 0.92, Nucleated RBC % 0.4, Sodium 137, Potassium 4.6, Chloride 100, Carbon Dioxide 22.9, Anion Gap 14, BUN 49 H, Creatinine 1.96 H, Estim Creat Clear Calc 39.12 L, Est GFR (MDRD) Non-Af 35 L, BUN/Creatinine Ratio 24.9 H, Glucose 399 H, Calcium 8.9, Total Bilirubin 0.77, AST 17, ALT 13, Alkaline Phosphatase 59, Total Protein 6.6, Albumin 3.3 L, Globulin 3.3, Albumin/Globulin Ratio 1.0 12/25/24 08:35: POC Glucose 363 H Micro: Microbiology 12/25/24 04:56 Mucosa - Nasopharyngeal Respiratory Panel (PCR) - Final 12/25/24 04:00 Nasal Secretion MRSA (PCR) - Final Meth. resistant Staph. aureus 12/25/24 01:25 Urine, Clean Catch Legionella Antigen - Final 12/25/24 01:25 Urine, Clean Catch Streptococcus pneumoniae Antigen (M - Final 12/24/24 23:30 Mucosa - Nose SARS-CoV-2, Influenza & RSV (PCR) - Final Radiography Diagnostic Testing: Radiology Impression Chest X-Ray 12/24/24 23:36 IMPRESSION: Minimal bilateral basilar atelectatic pulmonary changes. Reading Location: [place] [address] Chest CTA 12/25/24 00:05 IMPRESSION: No evidence of pulmonary arterial thromboembolism. Cardiomegaly. Bilateral pulmonary patchy ground glass opacities and acinar densities, most evidently involving the right upper lung lobe, possibly infectious. Bilateral pulmonary atelectatic changes with predominantly lower lobar bronchial wall thickening No obvious pulmonary masses or consolidations. Reading Location: [place] [address] Physical Exam Narrative Seen and examined Patient is still short of breath. Patient having cough mainly dry for 2 to 3 days along with shortness of breath. He also felt fever but did not measure at home. No chest pain tightness or heaviness. Mild chest congestion. Physical exam General: Alert, Oriented x3, Cooperative. BMI 30.6 kg/m? HEENT: Atraumatic, PERRLA, EOMI, Normocephalic. Oral: No Gingival or Mucosal Lesions/ Ulcerations Neck: Supple, No JVD, Negative Carotid Bruits Chest wall/Lungs: Air entry diminished in all lung luu. Bilateral coarse crepitations. Cardiovascular: Regular rate and rhythm, Normal S1,S2, systolic murmur Abdomen: Bowel Sounds Present, Soft, Non Tender, Non-Distended : No dysuria. No renal angle tenderness. No suprapubic tenderness. Extremities: Mild 1+ chronic edema, Capillary Refill Less than 3 Seconds Skin: No rashes, No breakdown Musculoskeletal: No Tenderness to Palpation of Joints or Extremities Neurological: Cranial nerves II-XII grossly intact, DTR 2+/4. No acute focal neurological deficit. Psych/Mental Status: Flat affect. Assessment & Plan Assessment/Plan (1) Pneumonia: (2) UTI (urinary tract infection): PLAN: Plan The patient is a 74 y/o M with history of COPD on 3 L of oxygen admitted with subjective fever and chills for past 2 to 3 days along with increased cough and shortness of breath. He increased his home oxygen to 4 to 5 L #1. Acute on Chronic Hypoxic and Hypercarbic Respiratory Failure secondary to bilateral pneumonia: Chest CTPA reviewed and shows bilateral patchy ground glass opacities/acinar densities predominantly right upper lobe. Bilateral pulmonary atelectatic changes with lower lobe bronchial wall thickening. PE ruled out. Patient has leukocytosis mainly monocytes 15%, immature granulocyte 2.1% showing left significant probably due to pneumonia Pneumonia workup shows respiratory panel and urinary antigens are negative. Triple PCR for SARS-CoV-2, flu and RSV are negative. Nasal MRSA screen positive. Patient empirically on IV vancomycin and Zosyn. #2. CAD: s/p LAD, RCA (2001) and L circumflex (2013), chronic HFrEF, chronic atrial fibrillation: Most recent echocardiogram 08/23/2024 with EF 25 to 30%, severe LV systolic dysfunction, no significant change from previous echocardiogram 05/2024 with EF at that time 25%Continue Coreg, statin therapy. It seems patient is not on baby aspirin probably due to GI bleed. Baby aspirin started as patient is high risk for cardiac complications including [place] and stroke. Patient not on MEDHAT or ARB. On chronic Lasix. #4. Chronic macrocytic anemia/Fe deficiency anemia complicated by history of significant recurrent GI bleeds w/ AVMs: Admission hemoglobin 9.2, MCV 97.6, baseline hemoglobin 8-10, stable, continue to trend. Continue PPI iron supplementation. Monitor CBC following Hematology, most recent visit noted 12/06/24. #5. Hx VTE, DVT and BL PE: Most recent event 07/2021 BL PE, prior DVT, history of significant GI bleeds status post IVC filter placement. #6. Diabetes mellitus type II: Will hold oral regimen, continue long-acting insulin regimen, will maintain on ADA diet, accu checks with ISS. #7. Rheumatoid arthritits: Previously on rituximab and prior also noted to have been on low dose prednisone, will clarify if currently ongoing but may have been discontinued given GI bleed issues. #8. Hypertension: Continue home Coreg, Spironolactone, Lasix with hold parameters as needed given low-normal BP in the ED, PRN hydralazine. #9. Hyperlipidemia: Continue home statin therapy. #11. History of non-Hodgkin's lymphoma: Considered in remission, s/p ABVD and radiation 2010, encourage continued outpatient follow-up with oncology as previously arranged or needed. #12. Anxiety and depression: We will continue patient home escitalopram and mirtazapine regimen. #13. BPH with obstructive pathology: We will continue patient home finasteride and Flomax regimen. #14. Chronic Kidney Disease Stage IIIb: Admission BUN/Cr 50/2.04, GFR 33, baseline renal function more recently 1.7-2.7, seems to vacillate, most recently 12/06/2024 creatinine 2.70, repeat BMP in AM to elucidate current baseline. #15. GERD with history of significant recurrent GI bleeds with AVMs: Will continue patient on PPI, as noted above #4. DVT prophylaxis: Heparin cautiously. CODE status: Patient HARISH is his son and granddaughter are his decision makers and living will is currently in place. Discussed CODE status at length including difference between FULL code, DNR-CCA and DNR-CC status. Following discussions about the differences in these status, requested continutation DNR- CCA, no intubation. Microbiology Past 72 Hours 12/25/24 04:56 Mucosa - Nasopharyngeal Respiratory Panel (PCR) - Final 12/25/24 04:00 Nasal Secretion MRSA (PCR) - Final Meth. resistant Staph. aureus 12/25/24 01:25 Urine, Clean Catch Legionella Antigen - Final 12/25/24 01:25 Urine, Clean Catch Streptococcus pneumoniae Antigen (M - Final 12/24/24 23:30 Mucosa - Nose SARS-CoV-2, Influenza & RSV (PCR) - Final Laboratory Results 12/24/24 23:21: WBC 14.3 H, RBC 2.90 L, Hgb 9.2 L, Hct 28.3 L, MCV 97.6 H, MCH 31.7, MCHC 32.5, RDW Std Deviation 60.4 H, RDW Coeff of Rafael 17.1 H, Plt Count 301, MPV 11.3, Immature Gran % (Auto) 2.100 H, Neut % (Auto) 47.9, Lymph % (Auto) 30.5, [place] % (Auto) 15.2 H, Eos % (Auto) 3.7, Baso % (Auto) 0.6, Absolute Neuts (auto) 6.8, Absolute Lymphs (auto) 4.34, Nucleated RBC % 0.5, Differential Comment SCANNED, Sodium 138, Potassium 4.9, Chloride 98, Carbon Dioxide 26.8, Anion Gap 13, BUN 50 H, Creatinine 2.04 H, Estim Creat Clear Calc 38.01 L, Est GFR (MDRD) Non-Af 33 L, BUN/Creatinine Ratio 24.6 H, Glucose 266 H, Lactic Acid 1.7, Calcium 9.3, Magnesium 2.1 12/24/24 23:21: Magnesium 2.0, NT pro BNP II 2413 H, Procalcitonin 0.14 H 12/25/24 01:25: Urine Color Yellow, Urine Clarity Turbid, Urine pH 6.0, Ur Specific [place] 1.020, Urine Protein 100 H, Urine Glucose (UA) 1000 H, Urine Ketones Negative, Urine Occult Blood 50 H, Urine Nitrite Negative, Urine Bilirubin Negative, Urine Urobilinogen 1 H, Ur Leukocyte Esterase 500 H, Urine RBC 0 SEEN, Urine WBC 50-100 SEEN, Ur Squamous Epith Cells 0-5 SEEN, Ur Renal Epithelial Cell 0-5 SEEN, Urine Bacteria 2+, Urine Mucus 0 SEEN, Urine Yeast 1+ 12/25/24 06:17: WBC 7.5, RBC 2.71 L, Hgb 8.5 L, Hct 26.9 L, MCV 99.3 H, MCH 31.4, MCHC 31.6 L, RDW Std Deviation 61.1 H, RDW Coeff of Rafael 17.0 H, Plt Count 257, MPV 11.2, Immature Gran % (Auto) 4.800 H, Neut % (Auto) 78.2 H, Lymph % (Auto) 12.3 L, [place] % (Auto) 3.1, Eos % (Auto) 0.4, Baso % (Auto) 1.2 H, Absolute Neuts (auto) 5.8, Absolute Lymphs (auto) 0.92, Nucleated RBC % 0.4, Sodium 137, Potassium 4.6, Chloride 100, Carbon Dioxide 22.9, Anion Gap 14, BUN 49 H, Creatinine 1.96 H, Estim Creat Clear Calc 39.12 L, Est GFR (MDRD) Non-Af 35 L, BUN/Creatinine Ratio 24.9 H, Glucose 399 H, Calcium 8.9, Total Bilirubin 0.77, AST 17, ALT 13, Alkaline Phosphatase 59, Total Protein 6.6, Albumin 3.3 L, Globulin 3.3, Albumin/Globulin Ratio 1.0 12/25/24 08:35: POC Glucose 363 H 12/25/24 12:46: POC Glucose 365 H Clinical Impression(s) from Imaging Studies Chest X-Ray 12/24/24 23:36 IMPRESSION: Minimal bilateral basilar atelectatic pulmonary changes. Chest CTA 12/25/24 00:05 IMPRESSION: No evidence of pulmonary arterial thromboembolism. Cardiomegaly. Bilateral pulmonary patchy ground glass opacities and acinar densities, most evidently involving the right upper lung lobe, possibly infectious. Bilateral pulmonary atelectatic changes with predominantly lower lobar bronchial wall thickening No obvious pulmonary masses or consolidations. Reading Location: [facility] Charges/Coding Visit Charges Inpatient E&M: 81807 Subs Hosp L2
--- NOTE | 2024-12-25 15:40 | CASEMGMT ---
RN?CM?ASSESSMENT ? RN?CM?to room to meet with patient for initial transition planning/care coordination?assessment.?RN?CM?introduced self and role at [facility].? Pt voices understanding and consents to?assessment?at this time.? Pt sitting up in recliner in no distress at this time.? Pt is A/O at this time and answers all questions appropriately.?? Care providers, pharmacy, and demographics verified/updated at this time. PCP: Dr. Will Specialists: ?Dr Anthony Corado, MARK/Dr Phillips, Dr Bass, Dr Zapata-onc Palliative: Pt is active w/[facility]. He states they came to see him this past month and are scheduled to come again in December. E-mail sent to them to notify them of pt's admission to [facility]. Preferred Pharmacy: [facility] Insurance: [employer] [facility] Prescription Benefit: Yes LNOK: Patient?s sons, Ray of [place] and Jin of [place]. Daughter, Prabha, resides in a snf. Living Arrangements: Patient has his own home that patient?s granddaughter and great-granddaughter is living in that?s a 2-story home w/3 steps to enter. FFSU @ his home & there is a hospital bed in his own home. Though patient has his own home, patient has been staying with his son, Ray, and DIL, Juliana since November of 2023 to make sure that all of patient?s needs are being taken care of. Ray's home is a [id number] with 2 steps leading in/out of the house with a handrail. Pt states about every other week he goes to his own home and stays for a few days @ a time. He denies having difficulty getting into either home. Pt states he is independent w/ADL's. His family does IADL's/home mgnt tasks. Transportation: Patient does not drive; Ray and Juliana provide all transportation needs. DME: O2 through [employer], pt states he has been wearing 3 L/M continuously. Pt has a POC and a concentrator. Pt states family can bring in POC @ discharge for him to go home on. Pt has a pulse ox, nebulilzer, grab-bars by shower, shower chair, BSC, standard cane, 3-prong cane, standard walker, standard rollator, wheelchair (that he has borrowed from his neighbor) and lift chair. Hospital bed is at own home. Pt states he also has a CGM, BGM, and insulin. He states has sufficient supply of sensors, testing supplies, needles, and insulin. He has been provided medical alert info in the past but did not end up getting one. He declines wanting resources/info again. HHC: Pt has had [facility] HHC in the past. SNF: No hx of either. Pt wishes to return home and states has no concerns with going home at time of discharge. He declines wanting any HHC or OP therapy. Made aware, if he changes his mind once he returns home, to discuss this with his PCP. He voices understanding. CM?to follow for any increase in home oxygen needs and any further discharge planning/needs.? Pt voices no further concerns/needs at this time.? Advised pt to ask for?CM?if any further questions/concerns/needs arise.? Voices understanding. ? PLAN:??Home. ? Lars BSN?RN?CM ?
[2024-12-25] MEDS: guaiFENesin/D-Methorphan TAB.SR.12H 2 TABLET PO (17:37)
[2024-12-25] MEDS: Insulin Glargine-YFGN 100 UNIT/ML Pen 15 UNIT SC (21:41)
[2024-12-26] MEDS: Vancomycin HCl 1,500 MG in 0.9% Normal Saline (500mL Bag) 500 ML 250 MG IV (01:03)
[2024-12-26 03:00] VITALS: BP 106/59; PULSE 64; RESP 16; TEMP 36.8; O2SAT 98
[2024-12-26 03:20] VITALS: BMI 30.3
[2024-12-26 04:34] LABS: Hematocrit 24.5 % (40-54); Hemoglobin 8.2 g/dL (13.0-16.5); Immature Granulocytes Count 0.400 X10^3/uL (0.0-0.0); Mean Corp Hgb Conc 33.5 g/dL (32-36); Mean Corpuscular Volume 96.8 fL (80-94); Mean Platelet Vol. 11.4 fl (6.2-12.0); NRBC Flagged by Analyzer 0.7 % (0-5); Platelet Count 259 K/mm3 (150-450); RBC Distribution Width CV 16.8 % (11.6-14.6); RBC Distribution Width SD 59.3 fl (35.1-43.9); Red Blood Count 2.53 M/mm3 (4.6-6.2); White Blood Count 12.9 K/mm3 (4.4-11.0)
[2024-12-26 04:52] LABS: Anion Gap 12 (5-15); BUN 56 mg/dL (4-19); BUN/Creat Ratio 31.3 RATIO (10-20); Calcium,Total 8.7 mg/dL (7.6-11.0); Carbon Dioxide 23.1 mmol/L (21.0-32.0); Chloride 105 mmol/L (98-108); Estimated Creatinine Clearance 42.38 ml/min (50-250); Glucose 258 mg/dL (70-99); Potassium 4.4 mmol/L (3.3-5.1)
[2024-12-26] MEDS: Piperacil/Tazobactam 3.375 GM in 0.9% Normal Saline (50mL MB+) 50 ML IV (05:21)
[2024-12-26] MEDS: Albuterol 2.5 MG/3 ML VIAL.NEB. INHALATION ×2 (07:19→18:32)
[2024-12-26] MEDS: Budesonide Respules 0.5 MG/2 ML AMPUL.NEB. INHALATION ×2 (07:19→18:32)
[2024-12-26 08:33] VITALS: BP 122/49; PULSE 57; RESP 16; TEMP 36.5; O2SAT 92
[2024-12-26] MEDS: Aspirin E.C. 81 MG Tablet PO (08:43)
[2024-12-26 08:44] VITALS: PULSE 60; RESP 16; O2SAT 98
[2024-12-26] MEDS: guaiFENesin/D-Methorphan TAB.SR.12H 2 TABLET PO ×2 (08:45→21:33)
[2024-12-26] MEDS: Heparin Injection (Vial) 5,000 UNIT/ML VIAL 5000 UNIT SC ×2 (08:47→21:33)
--- NOTE | 2024-12-26 12:49 | PN.HOSP_ITS ---
Reason for Visit Chief Complaint: Dyspnea, increased hypoxia/oxygen needs, URI sxs, subjective F/C. Objective Data Objective Data Vital Signs: Vital Signs Temp Pulse Resp BP Pulse Ox O2 Del Method O2 Flow Rate 97.7 F L 60 16 122/49 H 98 Nasal Cannula 3 12/26/24 08:33 12/26/24 08:44 12/26/24 08:44 12/26/24 08:33 12/26/24 08:44 12/26/24 08:44 12/26/24 08:44 Oxygen Flow Rate (L/min) 3 Oxygen Delivery Method Nasal Cannula Weight: 216 lb 11.43 oz Body Mass Index (BMI) 30.3 Intake & Output: Intake and Output for Last 24 Hours 12/24/24 12/25/24 12/26/24 23:59 23:59 22:59 Intake Total 1980.83 / 1980.83 580 / 580 Output Total 1649 / 0 750 / 750 Balance 330.83 / -69.17 -170 / -170 Lab / Micro Data 12/26/24 03:20 12/26/24 03:20 Labs: Laboratory Results - last 24 hr 12/25/24 17:29: POC Glucose 299 H 12/25/24 21:28: POC Glucose 330 H 12/25/24 22:31: POC Glucose 280 H 12/26/24 03:20: WBC 12.9 H, RBC 2.53 L, Hgb 8.2 L, Hct 24.5 L, MCV 96.8 H, MCH 32.4 H, MCHC 33.5 D, RDW Std Deviation 59.3 H, RDW Coeff of Rafael 16.8 H, Plt Count 259, MPV 11.4, Immature Gran % (Auto) 3.100 H, Neut % (Auto) 78.7 H, Lymph % (Auto) 8.9 L, Garza % (Auto) 8.9, Eos % (Auto) 0.2, Baso % (Auto) 0.2, Absolute Neuts (auto) 10.1 H, Absolute Lymphs (auto) 1.15, Nucleated RBC % 0.7, Sodium 140, Potassium 4.4, Chloride 105, Carbon Dioxide 23.1, Anion Gap 12, BUN 56 H, C reatinine 1.80 H, Estim Creat Clear Calc 42.38 L, Est GFR (MDRD) Non-Af 39 L, B UN/Creatinine Ratio 31.3 H, Glucose 258 H, Calcium 8.7 12/26/24 08:29: POC Glucose 197 H 12/26/24 11:45: POC Glucose 282 H Micro: Microbiology 12/25/24 01:25 Urine, Clean Catch Urine Culture - Preliminary GPC Poss Enterococcus sp Yeast Like Organism 12/25/24 04:56 Mucosa - Nasopharyngeal Respiratory Panel (PCR) - Final 12/25/24 04:00 Nasal Secretion MRSA (PCR) - Final Meth. resistant Staph. aureus 12/25/24 01:25 Urine, Clean Catch Legionella Antigen - Final 12/25/24 01:25 Urine, Clean Catch Streptococcus pneumoniae Antigen (M - Final 12/24/24 23:30 Mucosa - Nose SARS-CoV-2, Influenza & RSV (PCR) - Final Physical Exam Narrative Seen and examined Patient is mild short of breath better than yesterday. On 3 to 4 L of oxygen. Physical exam General: Alert, Oriented x3, Cooperative. BMI 30.6 kg/m? HEENT: Atraumatic, PERRLA, EOMI, Normocephalic. Oral: No Gingival or Mucosal Lesions/ Ulcerations Neck: Supple, No JVD, Negative Carotid Bruits Chest wall/Lungs: Air entry diminished in all lung luu. Bilateral coarse crepitations. Mild dyspnea at rest Cardiovascular: Regular rate and rhythm, Normal S1,S2, systolic murmur Abdomen: Bowel Sounds Present, Soft, Non Tender, Non-Distended : No dysuria. No renal angle tenderness. No suprapubic tenderness. Extremities: Mild 1+ chronic edema, Capillary Refill Less than 3 Seconds Skin: No rashes, No breakdown Musculoskeletal: No Tenderness to Palpation of Joints or Extremities Neurological: Cranial nerves II-XII grossly intact, DTR 2+/4. No acute focal neurological deficit. Psych/Mental Status: Flat affect. Assessment & Plan Assessment/Plan (1) Pneumonia: (2) UTI (urinary tract infection): PLAN: Plan The patient is a 74 y/o M with history of COPD on 3 L of oxygen admitted with subjective fever and chills for past 2 to 3 days along with increased cough and shortness of breath. He increased his home oxygen to 4 to 5 L. He also felt fever but did not measure at home. No chest pain tightness or heaviness. Mild chest congestion. #1. Acute on Chronic Hypoxic and Hypercarbic Respiratory Failure secondary to bilateral pneumonia: Chest CTPA reviewed and shows bilateral patchy ground glass opacities/acinar densities predominantly right upper lobe. Bilateral pulmonary atelectatic changes with lower lobe bronchial wall thickening. PE ruled out. Patient has leukocytosis mainly monocytes 15%, immature granulocyte 2.1% showing left significant probably due to pneumonia Pneumonia workup shows respiratory panel and urinary antigens are negative. Triple PCR for SARS-CoV-2, flu and RSV are negative. Nasal MRSA screen positive. Patient empirically on IV vancomycin and Zosyn. 12/26: Overall patient feeling better than yesterday but is still mild short of breath at rest get worse on exertion. Sputum Gram stain pending. Continue IV antibiotics. Narrowed on the antibiotic Zosyn to Unasyn. Urine culture growing GPC Enterococcus (25,000 and yeastlike organism, contamination. Clinically no UTI ruled out. #2. CAD: s/p LAD, RCA (2001) and L circumflex (2013), chronic HFrEF, chronic atrial fibrillation: Most recent echocardiogram 08/23/2024 with EF 25 to 30%, severe LV systolic dysfunction, no significant change from previous echocardiogram 05/2024 with EF at that time 25%Continue Coreg, statin therapy. It seems patient is not on baby aspirin probably due to GI bleed. Baby aspirin started as patient is high risk for cardiac complications including [place] and stroke. Patient not on MEDHAT or ARB. 12/26: Bumex 0.5 mg oral changed to IV and Jardiance resumed. #4. Chronic macrocytic anemia/Fe deficiency anemia complicated by history of significant recurrent GI bleeds w/ AVMs: Admission hemoglobin 9.2, MCV 97.6, baseline hemoglobin 8-10, stable, continue to trend. Continue PPI iron supplementation. Monitor CBC following Hematology, most recent visit noted 12/06/24. #5. Hx VTE, DVT and BL PE: Most recent event 07/2021 BL PE, prior DVT, history of significant GI bleeds status post IVC filter placement. #6. Diabetes mellitus type II: Will hold oral regimen, continue long-acting insulin regimen, will maintain on ADA diet, accu checks with ISS. #7. Rheumatoid arthritits: Previously on rituximab and prior also noted to have been on low dose prednisone, will clarify if currently ongoing but may have been discontinued given GI bleed issues. #8. Hypertension: Continue home Coreg, Spironolactone, Lasix with hold parameters as needed given low-normal BP in the ED, PRN hydralazine. #9. Hyperlipidemia: Continue home statin therapy. #11. History of non-Hodgkin's lymphoma: Considered in remission, s/p ABVD and radiation 2010, encourage continued outpatient follow-up with oncology as previously arranged or needed. #12. Anxiety and depression: We will continue patient home escitalopram and mirtazapine regimen. #13. BPH with obstructive pathology: We will continue patient home finasteride and Flomax regimen. #14. Chronic Kidney Disease Stage IIIb: Admission BUN/Cr 50/2.04, GFR 33, baseline renal function more recently 1.7-2.7, seems to vacillate, most recently 12/06/2024 creatinine 2.70, repeat BMP in AM to elucidate current baseline. 12/26: Patient creatinine slightly better, 1.8 today. Baseline Bumex 0.5 mg IV resumed. #15. GERD with history of significant recurrent GI bleeds with AVMs: Will continue patient on PPI, as noted above #4. DVT prophylaxis: Heparin cautiously. CODE status: Patient HARISH is his son and granddaughter are his decision makers and living will is currently in place. Discussed CODE status at length including difference between FULL code, DNR-CCA and DNR-CC status. Following discussions about the differences in these status, requested continutation DNR- CCA, no intubation. Microbiology Past 72 Hours 12/25/24 01:25 Urine, Clean Catch Urine Culture - Preliminary GPC Poss Enterococcus sp Yeast Like Organism 12/25/24 04:56 Mucosa - Nasopharyngeal Respiratory Panel (PCR) - Final 12/25/24 04:00 Nasal Secretion MRSA (PCR) - Final Meth. resistant Staph. aureus 12/25/24 01:25 Urine, Clean Catch Legionella Antigen - Final 12/25/24 01:25 Urine, Clean Catch Streptococcus pneumoniae Antigen (M - Final 12/24/24 23:30 Mucosa - Nose SARS-CoV-2, Influenza & RSV (PCR) - Final Laboratory Results 12/25/24 17:29: POC Glucose 299 H 12/25/24 21:28: POC Glucose 330 H 12/25/24 22:31: POC Glucose 280 H 12/26/24 03:20: WBC 12.9 H, RBC 2.53 L, Hgb 8.2 L, Hct 24.5 L, MCV 96.8 H, MCH 32.4 H, MCHC 33.5 D, RDW Std Deviation 59.3 H, RDW Coeff of Rafael 16.8 H, Plt Count 259, MPV 11.4, Immature Gran % (Auto) 3.100 H, Neut % (Auto) 78.7 H, Lymph % (Auto) 8.9 L, Garza % (Auto) 8.9, Eos % (Auto) 0.2, Baso % (Auto) 0.2, Absolute Neuts (auto) 10.1 H, Absolute Lymphs (auto) 1.15, Nucleated RBC % 0.7, Sodium 140, Potassium 4.4, Chloride 105, Carbon Dioxide 23.1, Anion Gap 12, BUN 56 H, C reatinine 1.80 H, Estim Creat Clear Calc 42.38 L, Est GFR (MDRD) Non-Af 39 L, B UN/Creatinine Ratio 31.3 H, Glucose 258 H, Calcium 8.7 12/26/24 08:29: POC Glucose 197 H 12/26/24 11:45: POC Glucose 282 H Clinical Impression(s) from Imaging Studies Chest X-Ray 12/24/24 23:36 IMPRESSION: Minimal bilateral basilar atelectatic pulmonary changes. Chest CTA 12/25/24 00:05 IMPRESSION: No evidence of pulmonary arterial thromboembolism. Cardiomegaly. Bilateral pulmonary patchy ground glass opacities and acinar densities, most evidently involving the right upper lung lobe, possibly infectious. Bilateral pulmonary atelectatic changes with predominantly lower lobar bronchial wall thickening No obvious pulmonary masses or consolidations. [id number] Charges/Coding Visit Charges Inpatient E&M: 18020 Subs Hosp L2
[2024-12-26 14:30] VITALS: BP 105/62; PULSE 88; RESP 16; TEMP 36.6; O2SAT 93
[2024-12-26] MEDS: FLU VACCINE HIGH DOSE 25-26(65YR UP) 180 MCG/0.5 ML SYRINGE IM (16:00)
[2024-12-26 18:33] VITALS: PULSE 75; RESP 18; O2SAT 92
[2024-12-26] MEDS: Ampicillin/Sulbactam 3 GM in 0.9% Normal Saline (100mL MB+) 100 ML IV (18:40)
[2024-12-26 21:20] VITALS: BP 127/61; PULSE 72; RESP 16; TEMP 36.9; O2SAT 95
[2024-12-27] VITALS (18 sets, daily range): BP systolic 105–126; BP diastolic 48–74; PULSE 69–97; RESP 16–20; TEMP 36.6–37.7; O2SAT 88–98; BMI 30.2
[2024-12-27] MEDS: Ampicillin/Sulbactam 3 GM in 0.9% Normal Saline (100mL MB+) 100 ML IV ×5 (00:13→23:31)
[2024-12-27 01:19] LABS: Vancomycin, Trough Level 22.6 ug/mL (5.0-15.0)
--- NOTE | 2024-12-27 01:24 | PCM.RX.CS ---
Consult Antibiotic Management Pharmacy has been consulted to manage selected antibiotic: Vancomycin Type of Intervention Type of Consult: Follow-up Labs Labs: Sodium 140 mmol/L (133-145) 12/26/24 03:20 Potassium 4.4 mmol/L (3.3-5.1) 12/26/24 03:20 Chloride 105 mmol/L (98-108) 12/26/24 03:20 Carbon Dioxide 23.1 mmol/L (21.0-32.0) 12/26/24 03:20 Anion Gap 12 (5-15) 12/26/24 03:20 BUN 56 mg/dL (4-19) H 12/26/24 03:20 Creatinine 1.80 mg/dL (0.70-1.20) H 12/26/24 03:20 Est GFR (MDRD) Non-Af 39 (>60) L 12/26/24 03:20 BUN/Creatinine Ratio 31.3 RATIO (10-20) H 12/26/24 03:20 Glucose 258 mg/dL (70-99) H 12/26/24 03:20 Vancomycin Trough 22.6 ug/mL (5.0-15.0) H 12/27/24 00:33 Microbiology Microbiology: Microbiology 12/25/24 20:10 Sputum, Expectorated/Coughed Gram Stain - Final 12/25/24 01:25 Urine, Clean Catch Urine Culture - Preliminary GPC Poss Enterococcus sp Yeast Like Organism 12/25/24 04:56 Mucosa - Nasopharyngeal Respiratory Panel (PCR) - Final 12/25/24 04:00 Nasal Secretion MRSA (PCR) - Final Meth. resistant Staph. aureus 12/25/24 01:25 Urine, Clean Catch Legionella Antigen - Final 12/25/24 01:25 Urine, Clean Catch Streptococcus pneumoniae Antigen (M - Final 12/24/24 23:30 Mucosa - Nose SARS-CoV-2, Influenza & RSV (PCR) - Final Goal Trough Goal Trough: 15-20 mcg/mL Pharmacy Plan for Drug Dosing Pharmacy Plan for Drug Dosing: Pharmacy Service will continue to monitor and adjust dosing as required. TROUGH 22.6 @ 23.5 HOURS. HOLD DOSE AND DRAW RANDOM LEVEL IN 8 HOURS Follow-Up Labs Follow-Up Labs: Trough: Vancomycin Date/Time Labs Ordered Labs to be done on [date and time ordered]: 12/27 @ 0830
[2024-12-27 04:54] LABS: Hematocrit 26.1 % (40-54); Hemoglobin 8.6 g/dL (13.0-16.5); Immature Granulocytes Count 0.440 X10^3/uL (0.0-0.0); Mean Corp Hgb Conc 33.0 g/dL (32-36); Mean Corpuscular Volume 98.1 fL (80-94); Mean Platelet Vol. 11.4 fl (6.2-12.0); NRBC Flagged by Analyzer 0.3 % (0-5); Platelet Count 293 K/mm3 (150-450); RBC Distribution Width CV 17.1 % (11.6-14.6); RBC Distribution Width SD 61.2 fl (35.1-43.9); Red Blood Count 2.66 M/mm3 (4.6-6.2); White Blood Count 11.9 K/mm3 (4.4-11.0)
[2024-12-27] MEDS: Budesonide Respules 0.5 MG/2 ML AMPUL.NEB. INHALATION ×2 (04:54→19:15)
[2024-12-27] MEDS: Albuterol 2.5 MG/3 ML VIAL.NEB. INHALATION ×3 (04:54→19:15)
[2024-12-27 05:16] LABS: Anion Gap 11 (5-15); BUN 59 mg/dL (4-19); BUN/Creat Ratio 32.2 RATIO (10-20); Calcium,Total 8.8 mg/dL (7.6-11.0); Carbon Dioxide 24.0 mmol/L (21.0-32.0); Chloride 108 mmol/L (98-108); Estimated Creatinine Clearance 41.86 ml/min (50-250); Glucose 136 mg/dL (70-99); Potassium 4.1 mmol/L (3.3-5.1)
[2024-12-27] MEDS: 0.9% Saline Lock 10 ML Syringe IV ×2 (06:07→21:50)
--- NOTE | 2024-12-27 06:31 | PCM.HOSP.N ---
Hospitalist Note Increasing O2 requirement, will obtain CXR and ABG.
--- NOTE | 2024-12-27 06:37 | RAD_ITS ---
PROCEDURE: CHEST 1 VIEW (PORTABLE) 12/27/2024 REASON FOR EXAM: INCREASING O2 REQUIREMENT TECHNIQUE: Frontal view of the chest. COMPARISON: December 25, 2019 FINDINGS: Sternotomy wires are noted. Heart size remains mildly enlarged. Central vascularity is within normal limits. There is no focal infiltrate or consolidation. There is blunting of the costophrenic angle on the right and left which may represent trace effusions. There is no pneumothorax. There is no acute bony abnormality. RAD/Chest 1 View (Portable) IMPRESSION: There is mild cardiomegaly. There is blunting of the costophrenic angle on the right and left consistent wi th trace effusions. Reading Location: [facility]
[2024-12-27 07:06] LABS: Base Excess 3 mmol/L (-2 to +2); FI02 8.0; PO2 62 mmHG (75-100); SITE L Radial; SO2 92 % (94-98)
--- NOTE | 2024-12-27 08:24 | PCM.PN.HOSP ---
Reason for Visit Chief Complaint: Dyspnea, increased hypoxia/oxygen needs, URI sxs, subjective F/C. Subjective Subjective Breathing ok. Coughing up some yellow phlegm. Objective Data Objective Data Vital Signs: Vital Signs Temp Pulse Resp BP Pulse Ox O2 Del Method O2 Flow Rate 36.8 C 94 16 105/55 L 95 Nasal Cannula 4 12/27/24 07:55 12/27/24 08:09 12/27/24 07:55 12/27/24 07:55 12/27/24 07:55 12/27/24 08:09 12/27/24 08:09 Oxygen Flow Rate (L/min) 4 Oxygen Delivery Method Nasal Cannula Weight: 98 kg Body Mass Index (BMI) 30.2 Intake & Output: Intake and Output for Last 24 Hours 12/25/24 12/26/24 12/27/24 23:59 22:59 23:59 Intake Total 1980.83 / 1980.83 730 / 730 200 / 200 Output Total 1650 / 2050 1250 / 1700 800 / 800 Balance 330.83 / -69.17 -520 / -970 -600 / -600 Lab / Micro Data 12/27/24 03:40 12/27/24 03:40 Labs: Laboratory Results - last 24 hr 12/26/24 08:29: POC Glucose 197 H 12/26/24 11:45: POC Glucose 282 H 12/26/24 16:16: POC Glucose 144 H 12/26/24 21:30: POC Glucose 103 12/27/24 00:33: Vancomycin Trough 22.6 H 12/27/24 03:40: WBC 11.9 H, RBC 2.66 L, Hgb 8.6 L, Hct 26.1 L, MCV 98.1 H, MCH 32.3 H, MCHC 33.0, RDW Std Deviation 61.2 H, RDW Coeff of Rafael 17.1 H, Plt Count 293, MPV 11.4, Immature Gran % (Auto) 3.700 H, Neut % (Auto) 67.5, Lymph % (Auto) 13.4 L, [place] % (Auto) 11.1 H, Eos % (Auto) 3.8, Baso % (Auto) 0.5, Absolute Neuts (auto) 8.0 H, Absolute Lymphs (auto) 1.60, Nucleated RBC % 0.3, Sodium 143, Potassium 4.1, Chloride 108, Carbon Dioxide 24.0, Anion Gap 11, BUN 59 H, Creatinine 1.82 H, Estim Creat Clear Calc 41.86 L, Est GFR (MDRD) Non-Af 38 L, BUN/Creatinine Ratio 32.2 H, Glucose 136 H, Calcium 8.8 12/27/24 07:50: POC Glucose 132 H Micro: Microbiology 12/25/24 00:33 Blood Culture (Wb) - Right Forearm Blood Culture - Preliminary No growth in 48 hours. 12/24/24 23:21 Blood Culture (Wb) - Anticubital Left Blood Culture - Preliminary No growth in 48 hours. 12/25/24 20:10 Sputum, Expectorated/Coughed Gram Stain - Final 12/25/24 01:25 Urine, Clean Catch Urine Culture - Preliminary GPC Poss Enterococcus sp Yeast Like Organism 12/25/24 04:56 Mucosa - Nasopharyngeal Respiratory Panel (PCR) - Final 12/25/24 04:00 Nasal Secretion MRSA (PCR) - Final Meth. resistant Staph. aureus 12/25/24 01:25 Urine, Clean Catch Legionella Antigen - Final 12/25/24 01:25 Urine, Clean Catch Streptococcus pneumoniae Antigen (M - Final 12/24/24 23:30 Mucosa - Nose SARS-CoV-2, Influenza & RSV (PCR) - Final ABG Data ABG results: ABG 12/27/24 07:03 Specimen Type ART Sample Site L Radial pH 7.45 Bicarbonate Actual 26.9 H Total CO2 28 Base Excess 3 H O2 Saturation 92 L O2 % 8.0 ABG pCO2 39.1 ABG pO2 62 L O2 Delivery Device HFNC Vent Mode Not entered Radiography Diagnostic Testing: Radiology Impression Chest X-Ray 12/27/24 06:37 IMPRESSION: There is mild cardiomegaly. There is blunting of the costophrenic angle on the right and left consistent with trace effusions. Reading Location: [facility] Physical Exam Const alert and no apparent distress Constitutional Narrative: up in bed. no respiratory distress. HEENT head/scalp atraumatic and moist oral mucous membranes Resp normal respiratory effort and no retractions Resp Narrative: coarse breath sounds bilaterally. Cardio regular rate, regular rhythm, S1 normal heart sound and S2 normal heart sound GI normal to inspection, nondistended, normoactive bowel sounds, soft to palpation, non-tender and non-distended Extremity normal to inspection and full ROM Neuro Sensorium / Orientation: awake and alert Psych affect normal Assessment & Plan Assessment/Plan (1) Pneumonia: PLAN: Plan Acute on Chronic Hypoxic and Hypercarbic Respiratory Failure secondary to bilateral MRSA pneumonia: Chest CTA reviewed and shows bilateral patchy ground glass opacities/acinar densities predominantly right upper lobe. Bilateral pulmonary atelectatic changes with lower lobe bronchial wall thickening. PE ruled out. Pneumonia workup shows respiratory panel and urinary antigens are negative. Triple PCR for SARS-CoV-2, flu and RSV are negative. Nasal MRSA screen positive. SCx positive for MRSA. Patient empirically on IV vancomycin and Zosyn. 12/26: Overall patient feeling better than yesterday but is still mild short of breath at rest get worse on exertion. Sputum Gram stain pending. Continue IV antibiotics. Narrowed on the antibiotic Zosyn to Unasyn. Urine culture growing GPC Enterococcus (25,000 and yeastlike organism). UTI ruled out. MRSA pneumonia continue vanc and pip/tazo. likely drop pip/tazo unless cultures show an additional organism. Chronic medical conditions: CAD: s/p LAD, RCA (2001) and L circumflex (2013), chronic HFrEF, chronic atrial fibrillation: Most recent echocardiogram 08/23/2024 with EF 25 to 30%, severe LV systolic dysfunction, no significant change from previous echocardiogram 05/2024 with EF at that time 25%Continue Coreg, statin therapy. It seems patient is not on baby aspirin probably due to GI bleed. Baby aspirin started as patient is high risk for cardiac complications including TN and stroke. Patient not on MEDHAT or ARB. 12/26: Bumex 0.5 mg oral changed to IV and Jardiance resumed. Chronic macrocytic anemia/Fe deficiency anemia complicated by history of significant recurrent GI bleeds w/ AVMs: Admission hemoglobin 9.2, MCV 97.6, baseline hemoglobin 8-10, stable, continue to trend. Continue PPI iron supplementation. Monitor CBC following Hematology, most recent visit noted 12/06/24. Hx VTE, DVT and BL PE: Most recent event 07/2021 BL PE, prior DVT, history of significant GI bleeds status post IVC filter placement. Diabetes mellitus type II: Will hold oral regimen, continue long-acting insulin regimen, will maintain on ADA diet, accu checks with ISS. Rheumatoid arthritits: Previously on rituximab and prior also noted to have been on low dose prednisone, will clarify if currently ongoing but may have been discontinued given GI bleed issues. Hypertension: Continue home Coreg, Spironolactone, Lasix with hold parameters as needed given low-normal BP in the ED, PRN hydralazine. Hyperlipidemia: Continue home statin therapy. History of non-Hodgkin's lymphoma: Considered in remission, s/p ABVD and radiation 2010, encourage continued outpatient follow-up with oncology as previously arranged or needed. Anxiety and depression: We will continue patient home escitalopram and mirtazapine regimen. BPH with obstructive pathology: We will continue patient home finasteride and Flomax regimen. Chronic Kidney Disease Stage IIIb: Admission BUN/Cr 50/2.04, GFR 33, baseline renal function more recently 1.7-2.7, seems to vacillate, most recently 12/06/2024 creatinine 2.70, repeat BMP in AM to elucidate current baseline.12/26: Patient creatinine slightly better, 1.8 today. Baseline Bumex 0.5 mg IV resumed. GERD with history of significant recurrent GI bleeds with AVMs: Will continue patient on PPI, as noted above #4. DVT prophylaxis: Heparin cautiously. Charges/Coding Visit Charges Inpatient E&M: 14309 Subs Hosp L2
[2024-12-27] MEDS: guaiFENesin/D-Methorphan TAB.SR.12H 2 TABLET PO ×2 (09:16→21:50)
[2024-12-27] MEDS: Aspirin E.C. 81 MG Tablet PO (09:18)
[2024-12-27] MEDS: Heparin Injection (Vial) 5,000 UNIT/ML VIAL 5000 UNIT SC ×2 (09:19→21:50)
[2024-12-27 09:39] LABS: Vancomycin, Random Level 20.4 ug/mL (0.0-15.0)
--- NOTE | 2024-12-27 10:15 | PCM.RX.CS ---
Consult Antibiotic Management Pharmacy has been consulted to manage selected antibiotic: Vancomycin Type of Intervention Type of Consult: Follow-up Suspected Infection Suspected Infection: Pneumonia Prior Doses of Antibiotics Prior Doses of Antibiotics Received/Current Regimen: dose held Labs Labs: Sodium 143 mmol/L (133-145) 12/27/24 03:40 Potassium 4.1 mmol/L (3.3-5.1) 12/27/24 03:40 Chloride 108 mmol/L (98-108) 12/27/24 03:40 Carbon Dioxide 24.0 mmol/L (21.0-32.0) 12/27/24 03:40 Anion Gap 11 (5-15) 12/27/24 03:40 BUN 59 mg/dL (4-19) H 12/27/24 03:40 Creatinine 1.82 mg/dL (0.70-1.20) H 12/27/24 03:40 Est GFR (MDRD) Non-Af 38 (>60) L 12/27/24 03:40 BUN/Creatinine Ratio 32.2 RATIO (10-20) H 12/27/24 03:40 Glucose 136 mg/dL (70-99) H 12/27/24 03:40 Vancomycin Trough 22.6 ug/mL (5.0-15.0) H 12/27/24 00:33 Random Vancomycin 20.4 ug/mL (0.0-15.0) H 12/27/24 08:47 Microbiology Microbiology: Microbiology 12/25/24 01:25 Urine, Clean Catch Urine Culture - Preliminary GPC Poss Enterococcus sp Yeast Like Organism 12/25/24 00:33 Blood Culture (Wb) - Right Forearm Blood Culture - Preliminary No growth in 48 hours. 12/24/24 23:21 Blood Culture (Wb) - Anticubital Left Blood Culture - Preliminary No growth in 48 hours. 12/25/24 20:10 Sputum, Expectorated/Coughed Gram Stain - Final 12/25/24 04:56 Mucosa - Nasopharyngeal Respiratory Panel (PCR) - Final 12/25/24 04:00 Nasal Secretion MRSA (PCR) - Final Meth. resistant Staph. aureus 12/25/24 01:25 Urine, Clean Catch Legionella Antigen - Final 12/25/24 01:25 Urine, Clean Catch Streptococcus pneumoniae Antigen (M - Final 12/24/24 23:30 Mucosa - Nose SARS-CoV-2, Influenza & RSV (PCR) - Final Dosing Weight Weight used for dosin.4 kg Estimated Creatinine Clearance Estimated Creatinine Clearance: 41.9 Goal Trough Goal Trough: 15-20 mcg/mL Pharmacy Plan for Drug Dosing Pharmacy Plan for Drug Dosing: VANCOMYCIN LEVEL RECEIVED Current Vancomycin Dose: 1500 MG Q24H Number of Doses Received: 0 Vancomycin Level: 20.4 Hours Since Last Dose: 32 Renal Function: 1.82 / 41.9 Renal Function Trend: STABLE Lab/Micro: MRSA (PCR)12/25/2024 Vancomycin Plan/Comments: Patient renal function is stable; will decrease dose to 1000 mg q24h .pharmacy Service will continue to monitor and adjust dosing as required. Pending Level: 12/29/2024 @ 0930 Follow-Up Labs Follow-Up Labs: Trough: Vancomycin Date/Time Labs Ordered Labs to be done on [date and time ordered]: 12/29/2024 @0965
[2024-12-27] MEDS: Vancomycin HCl 1,000 MG in 0.9% Normal Saline (250mL Bag) 250 ML 250 MG IV (11:40)
--- NOTE | 2024-12-27 14:20 | PCM.CONS.GEN ---
Assessment & Plan Assessment/Plan (1) UTI (urinary tract infection): (2) Pneumonia: PLAN: Fever resolved, wbc improving. Ucx with small growth enterococcus. Sputum cx neg so far. Abx narrowed to vancomycin/unasyn. Plan on short course po abx at discharge. Will follow, thank you (3) Acute and chronic respiratory failure with hypercapnia: HPI Consult Data Date of Consult: 12/27/24 HPI Narrative Reason for Consultation: pneumonia HPI Narrative: SAL ALONZO, is a 74 M with h/o DM, RA, NHL in remission, CKD, COPD with chronic resp failure on 3-4L home O2, presented 12/24 to ED with 2-3 days progressive fever, chills, cough, dyspnea, not feeling well. Increased his O2 at home. No sick contacts. Minimal sputum. Denies dyspnea. Admitted on vanc/zosyn, now narrowed to vanc/unasyn. Feeling better overall but had some increased dyspnea last night. Full ROS performed and neg except as noted above. [facility] Medical History Acute and chronic respiratory failure with hypercapnia Type 2 OK (myocardial infarction) MRSA (methicillin resistant staph aureus) culture positive Ischemic cardiomyopathy COVID-19 Lethargic COPD with acute exacerbation Elevated troponin I level LUIS (acute kidney injury) Hypoxemia Chronic kidney disease (CKD), stage III (moderate) Acute hypoxic on chronic hypercapnic respiratory failure FTT (failure to thrive) in adult Former smoker On home oxygen therapy Bleeding tendency Ulcer High cholesterol History of stress test HTN (hypertension) Tobacco abuse History of pulmonary embolus (PE) (04/30/21) Essential hypertension Type 2 diabetes mellitus DVT (deep venous thrombosis) (05/01/21) Rhinovirus Acute respiratory failure with hypoxia Physical debility COVID-19 in immunocompromised patient Nicotine dependence, cigarettes, uncomplicated Diabetes Arthritis Cancer COPD (chronic obstructive pulmonary disease) History of basal cell carcinoma Atherosclerosis of coronary artery of [place] heart without angina pectoris Pneumonia Non-Hodgkin lymphoma History of pilonidal cyst Allergic rhinitis 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 complications Gastritis Colon polyp Obesity Asthma Chronic bronchitis Positive colorectal cancer screening using Cologuard test RA (rheumatoid arthritis) Home Medications ?Medication ?Instructions ?Recorded ?Last Taken ?Type finasteride 5 mg tablet 5 mg PO DAILY prostate 08/14/22 07/07/24 History tamsulosin 0.4 mg capsule 0.4 mg PO QHS prostate 08/14/22 07/07/24 History multivitamin 1 tab PO DAILY vitamin 09/13/22 07/07/24 History mirtazapine 15 mg tablet (Remeron) 7.5 mg (1/2 x 15 mg) PO QHS sleep 10/29/23 07/07/24 Rx #90 tabs needle (disp) 32 gauge 32 gauge x #100 ea 11/12/23 Unknown Rx /16 (Easy Touch Hypodermic Needle) pen needle, diabetic 32 gauge x #100 ea 12/03/23 Unknown Rx 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 sensor (FreeStyle #1 ea 12/24/23 Unknown Rx Basilio 3 Sensor device) 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,crosscutter,cont #1 ea 12/24/23 Unknown Rx (FreeStyle Basilio 3 [place]) ferrous sulfate 325 mg (65 mg 325 mg PO QODAY Supplement 04/05/24 07/07/24 History iron) tablet (FeroSul) cholecalciferol (vitamin D3) 50 50 mcg PO QDAY 06/28/24 07/07/24 History mcg (2,000 unit) capsule pantoprazole 40 mg tablet,delayed 40 mg PO DAILY 30 days #0 tabs 08/25/24 07/07/24 Rx release (Protonix) sennosides 8.6 mg-docusate sodium 2 tab PO BID PRN Constipation #0 08/25/24 Unknown Rx 50 mg tablet (Stimulant Laxative tabs Plus) albuterol sulfate 90 mcg/actuation 2 puff inhalation Q6 PRN shortness 09/24/24 Unknown History aerosol inhaler of breath or wheezing budesonide 1 mg/2 mL suspension 1 mg (2 mL) inhalation Q12H 09/24/24 Unknown Rx for nebulization wheezing/SOB #120 mL atorvastatin 40 mg tablet 40 mg PO QHS #90 tabs 10/08/24 Unknown Rx carvedilol 6.25 mg tablet 6.25 mg PO BID BP #180 tabs 10/08/24 Unknown Rx spironolactone 25 mg tablet 25 mg PO DAILY #90 tabs 10/08/24 Unknown Rx empagliflozin 10 mg tablet 10 mg PO DAILY #90 TABLETS 11/10/24 Unknown Rx (Jardiance) ipratropium 0.5 mg-albuterol 3 mg 3 ml inhalation Q4H PRN PRN SOB 11/26/24 Unknown Rx (2.5 mg base)/3 mL nebulization &/OR WHEEZING #270 mL soln escitalopram oxalate 10 mg tablet 10 mg PO DAILY mood 90 days #90 11/29/24 Unknown Rx tabs bumetanide 0.5 mg tablet 0.5 mg PO QDAY #180 tabs 12/17/24 Unknown Rx insulin aspart U-100 100 unit/mL See Rx Instructions subcut 12/23/24 Unknown Rx (3 mL) subcutaneous pen .COMPLEX High Blood Glucose #15 mL insulin glargine-yfgn 100 unit/mL See Rx Instructions subcut BIDCM 12/23/24 Unknown Rx (3 mL) subcutaneous pen high blood glucose #15 mL OXYGEN - Supplemental ([facility] hypoxia 12/25/24 Unknown History INFORMATIONAL USE ONLY) Allergy/AdvReac Type Severity Reaction Status Date / Time No Known Allergies Allergy Verified 12/06/24 10:24 Family History Father Arthritis Bleeding disorder Hypertension Kidney disease Cancer Skin Anemia blood clots Emphysema lung Mother Colon cancer Cancer Lung Cancer Diabetes Brother Thyroid disorder Surgical History History of embolic filter insertion History of heart artery stent Status post cardiac surgery H/O cardiac catheterization Presence of IVC filter (04/2021) History of coronary artery stent placement (10/22/13) History of thymectomy Hx of lymph node excision History of excision of pilonidal cyst Social History household members: spouse Smoking Status: Former smoker Tobacco: How many years used: 55 second hand exposure: Yes alcohol intake: current alcohol intake frequency: holidays/special occasions only substance use type: does not use caffeine: Yes Type: coffee Number of servings: 3 what type of physical activity do you participate in: none frequency: does not exercise seatbelt use: always Physical Exam Const alert, oriented x3 and no apparent distress HEENT normocephalic and head/scalp atraumatic Eyes PERRL and EOMs intact bilaterally Neck supple and No nodes Resp Auscultation: rhonchi and diminished lung sounds Cardio regular rate and regular rhythm GI soft to palpation, non-tender and non-distended Extremity General Extremity: Negative for edema Skin no rashes or lesions noted Neuro CN's II-XII intact bilaterally Lab / Micro Data Attestation: I reviewed the patient's lab results. 12/27/24 03:40 12/27/24 03:40 Labs: Laboratory Results - last 24 hr 12/26/24 16:16: POC Glucose 144 H 12/26/24 21:30: POC Glucose 103 12/27/24 00:33: Vancomycin Trough 22.6 H 12/27/24 03:40: WBC 11.9 H, RBC 2.66 L, Hgb 8.6 L, Hct 26.1 L, MCV 98.1 H, MCH 32.3 H, MCHC 33.0, RDW Std Deviation 61.2 H, RDW Coeff of Rafael 17.1 H, Plt Count 293, MPV 11.4, Immature Gran % (Auto) 3.700 H, Neut % (Auto) 67.5, Lymph % (Auto) 13.4 L, [place] % (Auto) 11.1 H, Eos % (Auto) 3.8, Baso % (Auto) 0.5, Absolute Neuts (auto) 8.0 H, Absolute Lymphs (auto) 1.60, Nucleated RBC % 0.3, Sodium 143, Potassium 4.1, Chloride 108, Carbon Dioxide 24.0, Anion Gap 11, BUN 59 H, Creatinine 1.82 H, Estim Creat Clear Calc 41.86 L, Est GFR (MDRD) Non-Af 38 L, BUN/Creatinine Ratio 32.2 H, Glucose 136 H, Calcium 8.8 12/27/24 07:50: POC Glucose 132 H 12/27/24 08:47: Random Vancomycin 20.4 H 12/27/24 11:01: POC Glucose 165 H Micro: Microbiology 12/25/24 01:25 Urine, Clean Catch Urine Culture - Preliminary GPC Poss Enterococcus sp Yeast Like Organism 12/25/24 00:33 Blood Culture (Wb) - Right Forearm Blood Culture - Preliminary No growth in 48 hours. 12/24/24 23:21 Blood Culture (Wb) - Anticubital Left Blood Culture - Preliminary No growth in 48 hours. 12/25/24 20:10 Sputum, Expectorated/Coughed Gram Stain - Final ABG Data ABG results: ABG 12/27/24 07:03 Specimen Type ART Sample Site L Radial pH 7.45 Bicarbonate Actual 26.9 H Total CO2 28 Base Excess 3 H O2 Saturation 92 L O2 % 8.0 ABG pCO2 39.1 ABG pO2 62 L O2 Delivery Device HFNC Vent Mode Not entered Imaging Radiology Impression Chest X-Ray 12/27/24 06:37 IMPRESSION: There is mild cardiomegaly. There is blunting of the costophrenic angle on the right and left consistent with trace effusions. Reading Location: [facility]
[2024-12-27] MEDS: Insulin Glargine-YFGN 100 UNIT/ML Pen 15 UNIT SC (21:48)
[2024-12-28] VITALS (11 sets, daily range): BP systolic 110–141; BP diastolic 52–83; PULSE 68–85; RESP 16–19; TEMP 36.6–38.4; O2SAT 90–97; BMI 30.8
[2024-12-28 04:19] LABS: Hematocrit 26.6 % (40-54); Hemoglobin 8.7 g/dL (13.0-16.5); Mean Corp Hgb Conc 32.7 g/dL (32-36); Mean Corpuscular Volume 99.3 fL (80-94); Mean Platelet Vol. 10.9 fl (6.2-12.0); POSITIVE COUNT YES; POSITIVE MORPHOLOGY YES; Platelet Count 302 K/mm3 (150-450); RBC Distribution Width CV 17.4 % (11.6-14.6); RBC Distribution Width SD 62.6 fl (35.1-43.9); Red Blood Count 2.68 M/mm3 (4.6-6.2); White Blood Count 11.2 K/mm3 (4.4-11.0)
[2024-12-28 04:21] LABS: Differential Indicated MANUAL DIFF
[2024-12-28 04:43] LABS: AST(SGOT) 18 U/L (<=37); Alanine Aminotransfer ALT/SGPT 11 U/L (<=46); Albumin, Serum 3.4 g/dL (3.4-4.8); Alkaline Phosphatase 53 U/L (40-129); Anion Gap 12 (5-15); BUN 55 mg/dL (4-19); BUN/Creat Ratio 30.3 RATIO (10-20); Calcium,Total 9.0 mg/dL (7.6-11.0); Carbon Dioxide 24.9 mmol/L (21.0-32.0); Chloride 106 mmol/L (98-108); Estimated Creatinine Clearance 42.00 ml/min (50-250); Globulin 3.3 g/dL (2.2-4.2); Glucose 145 mg/dL (70-99); Potassium 4.4 mmol/L (3.3-5.1)
[2024-12-28 05:15] LABS: Neutrophil-Band 7 % (0-5); Neutrophil-Segmented 62 % (47-70); Total Cells Counted 100 (MANUAL DIFF)
[2024-12-28 05:18] LABS: Dohle Bodies 1+; Vacuolated Cells 1+
[2024-12-28 05:19] LABS: Acanthocytes RARE; Anisocytosis 1+; Polychromasia 1+; Target Cells RARE
[2024-12-28] MEDS: Ampicillin/Sulbactam 3 GM in 0.9% Normal Saline (100mL MB+) 100 ML IV ×4 (06:23→23:20)
[2024-12-28] MEDS: Budesonide Respules 0.5 MG/2 ML AMPUL.NEB. INHALATION ×2 (06:31→19:44)
[2024-12-28] MEDS: Albuterol 2.5 MG/3 ML VIAL.NEB. INHALATION (06:31)
--- NOTE | 2024-12-28 08:07 | PCM.PN.HOSP ---
Reason for Visit Chief Complaint: Dyspnea, increased hypoxia/oxygen needs, URI sxs, subjective F/C. Subjective Subjective Feeling well. Breathing better. Objective Data Objective Data Vital Signs: Vital Signs Temp Pulse Resp BP Pulse Ox O2 Del Method O2 Flow Rate 37.1 C 68 18 110/56 L 93 Nasal Cannula 5 12/28/24 06:19 12/28/24 06:31 12/28/24 06:31 12/28/24 06:19 12/28/24 06:31 12/28/24 06:31 12/28/24 06:31 Oxygen Flow Rate (L/min) 5 Oxygen Delivery Method Nasal Cannula Weight: 99.9 kg Body Mass Index (BMI) 30.8 Intake & Output: Intake and Output for Last 24 Hours 12/26/24 12/27/24 12/28/24 22:59 23:59 23:59 Intake Total 730 / 730 1570 / 1570 100 / 100 Output Total 1250 / 1700 1950 / 1950 400 / 400 Balance -520 / -970 -380 / -380 -300 / -300 Lab / Micro Data 12/28/24 04:03 12/28/24 04:03 Labs: Laboratory Results - last 24 hr 12/27/24 07:50: POC Glucose 132 H 12/27/24 08:47: Random Vancomycin 20.4 H 12/27/24 11:01: POC Glucose 165 H 12/27/24 15:57: POC Glucose 160 H 12/27/24 21:45: POC Glucose 210 H 12/28/24 04:03: WBC 11.2 H, RBC 2.68 L, Hgb 8.7 L, Hct 26.6 L, MCV 99.3 H, MCH 32.5 H, MCHC 32.7, RDW Std Deviation 62.6 H, RDW Coeff of Rafael 17.4 H, Plt Count 302, MPV 10.9, Neut % (Auto) Not Reportable, Absolute Neuts (auto) 7.7, Absolute Lymphs (auto) 1.79, Total Counted 100, Neutrophils % (Manual) 62, Band Neutrophils % 7 H, Lymphocytes % (Manual) 16 L, Monocytes % (Manual) 8, Eosinophils % (Manual) 4, Metamyelocytes % 3 H, Diff Path Review May foll, Toxic Vacuolation 1+, Dohle Bodies 1+, Platelet Estimate ADEQUATE, Polychromasia 1+, Anisocytosis 1+, Target Cells RARE, Ovalocytes 1+, Acanthocytes (Spur) RARE, Sodium 143, Potassium 4.4, Chloride 106, Carbon Dioxide 24.9, Anion Gap 12, BUN 55 H, Creatinine 1.83 H, Estim Creat Clear Calc 42.00 L, Est GFR (MDRD) Non-Af 38 L, BUN/Creatinine Ratio 30.3 H, Glucose 145 H, Calcium 9.0, Total Bilirubin 0.39, AST 18, ALT 11, Alkaline Phosphatase 53, Total Protein 6.7, Albumin 3.4, Globulin 3.3, Albumin/Globulin Ratio 1.0 12/28/24 06:22: POC Glucose 129 H Micro: Microbiology 12/25/24 20:10 Sputum, Expectorated/Coughed Gram Stain - Final 12/25/24 20:10 Sputum, Expectorated/Coughed Respiratory Culture - Final Presumptive C albicans 12/25/24 01:25 Urine, Clean Catch Urine Culture - Preliminary Enterococcus faecalis Yeast Like Organism 12/25/24 00:33 Blood Culture (Wb) - Right Forearm Blood Culture - Preliminary No growth in 48 hours. 12/24/24 23:21 Blood Culture (Wb) - Anticubital Left Blood Culture - Preliminary No growth in 48 hours. 12/25/24 04:56 Mucosa - Nasopharyngeal Respiratory Panel (PCR) - Final 12/25/24 04:00 Nasal Secretion MRSA (PCR) - Final Meth. resistant Staph. aureus 12/25/24 01:25 Urine, Clean Catch Legionella Antigen - Final 12/25/24 01:25 Urine, Clean Catch Streptococcus pneumoniae Antigen (M - Final 12/24/24 23:30 Mucosa - Nose SARS-CoV-2, Influenza & RSV (PCR) - Final Physical Exam Const alert and no apparent distress HEENT head/scalp atraumatic and moist oral mucous membranes Resp normal respiratory effort and no retractions Resp Narrative: bibasilar crackles. Cardio regular rate, regular rhythm, S1 normal heart sound and S2 normal heart sound GI normal to inspection, nondistended, normoactive bowel sounds, soft to palpation, non-tender and non-distended Neuro oriented x3 and CN's II-XII intact bilaterally Sensorium / Orientation: awake and alert Assessment & Plan Assessment/Plan (1) Pneumonia: PLAN: Plan Acute on Chronic Hypoxic and Hypercarbic Respiratory Failure secondary to bilateral MRSA pneumonia: Chest CTA reviewed and shows bilateral patchy ground glass opacities/acinar densities predominantly right upper lobe. Bilateral pulmonary atelectatic changes with lower lobe bronchial wall thickening. PE ruled out. Pneumonia workup shows respiratory panel and urinary antigens are negative. Triple PCR for SARS-CoV-2, flu and RSV are negative. Nasal MRSA screen positive. SCx positive for MRSA. Patient empirically on IV vancomycin and Unasyn 12/26: Overall patient feeling better than yesterday but is still mild short of breath at rest get worse on exertion. Sputum Gram stain pending. Continue IV antibiotics. Narrowed on the antibiotic Zosyn to Unasyn. Urine culture growing GPC Enterococcus (25,000 and yeastlike organism). UTI ruled out. MRSA pneumonia continue vanc and pip/tazo. likely drop pip/tazo unless cultures show an additional organism. Chronic medical conditions: CAD: s/p LAD, RCA (2001) and L circumflex (2013), chronic HFrEF, chronic atrial fibrillation: Most recent echocardiogram 08/23/2024 with EF 25 to 30%, severe LV systolic dysfunction, no significant change from previous echocardiogram 05/2024 with EF at that time 25%Continue Coreg, statin therapy. It seems patient is not on baby aspirin probably due to GI bleed. Baby aspirin started as patient is high risk for cardiac complications including [place] and stroke. Patient not on MEDHAT or ARB. 12/26: Bumex 0.5 mg oral changed to IV and Jardiance resumed. Chronic macrocytic anemia/Fe deficiency anemia complicated by history of significant recurrent GI bleeds w/ AVMs: Admission hemoglobin 9.2, MCV 97.6, baseline hemoglobin 8-10, stable, continue to trend. Continue PPI iron supplementation. Monitor CBC following Hematology, most recent visit noted 12/06/24. Hx VTE, DVT and BL PE: Most recent event 07/2021 BL PE, prior DVT, history of significant GI bleeds status post IVC filter placement. Diabetes mellitus type II: Will hold oral regimen, continue long-acting insulin regimen, will maintain on ADA diet, accu checks with ISS. Rheumatoid arthritits: Previously on rituximab and prior also noted to have been on low dose prednisone, will clarify if currently ongoing but may have been discontinued given GI bleed issues. Hypertension: Continue home Coreg, Spironolactone, Lasix with hold parameters as needed given low-normal BP in the ED, PRN hydralazine. Hyperlipidemia: Continue home statin therapy. History of non-Hodgkin's lymphoma: Considered in remission, s/p ABVD and radiation 2010, encourage continued outpatient follow-up with oncology as previously arranged or needed. Anxiety and depression: We will continue patient home escitalopram and mirtazapine regimen. BPH with obstructive pathology: We will continue patient home finasteride and Flomax regimen. Chronic Kidney Disease Stage IIIb: Admission BUN/Cr 50/2.04, GFR 33, baseline renal function more recently 1.7-2.7, seems to vacillate, most recently 12/06/2024 creatinine 2.70, repeat BMP in AM to elucidate current baseline.12/26: Patient creatinine slightly better, 1.8 today. Baseline Bumex 0.5 mg IV resumed. GERD with history of significant recurrent GI bleeds with AVMs: Will continue patient on PPI, as noted above #4. DVT prophylaxis: Heparin cautiously. Charges/Coding Visit Charges Inpatient E&M: 46228 Subs Hosp L2
[2024-12-28] MEDS: guaiFENesin/D-Methorphan TAB.SR.12H 2 TABLET PO ×2 (10:10→21:34)
[2024-12-28] MEDS: Heparin Injection (Vial) 5,000 UNIT/ML VIAL 5000 UNIT SC ×2 (10:11→21:34)
[2024-12-28] MEDS: Aspirin E.C. 81 MG Tablet PO (10:11)
[2024-12-28] MEDS: 0.9% Saline Lock 10 ML Syringe IV ×2 (10:38→21:36)
[2024-12-28] MEDS: Vancomycin HCl 1,000 MG in 0.9% Normal Saline (250mL Bag) 250 ML 250 MG IV (10:38)
--- NOTE | 2024-12-28 10:43 | PCM.PN.ID ---
Physical Exam Narrative One time fever last night, denies feeling it. Breathing stable. No abd pain, no n/v/d, no dysuria. Const alert and no apparent distress General Appearance: cooperative Resp Auscultation: diminished lung sounds Cardio regular rate and regular rhythm GI soft to palpation, non-tender and non-distended Skin no rashes or lesions noted ID ID: Route of nutrition/ use of supplements: [] Nutritional Intake: [] IV Site: [] Ball Catheter: [] Assessment & Plan Assessment/Plan (1) UTI (urinary tract infection): (2) Pneumonia: PLAN: Fever one time last night, wbc improved, O2 reqs are better. Ucx with small growth enterococcus. Sputum cx neg so far. Abx narrowed to vancomycin/unasyn. Plan on short course po abx at discharge. Will follow (3) Acute and chronic respiratory failure with hypercapnia:
[2024-12-28] MEDS: Insulin Glargine-YFGN 100 UNIT/ML Pen 15 UNIT SC (21:34)
[2024-12-29] VITALS (13 sets, daily range): BP systolic 98–152; BP diastolic 48–82; PULSE 70–85; RESP 17–20; TEMP 36.5–38.4; O2SAT 89–96; BMI 31.3
[2024-12-29] MEDS: Ampicillin/Sulbactam 3 GM in 0.9% Normal Saline (100mL MB+) 100 ML IV ×4 (06:48→23:32)
[2024-12-29] MEDS: Budesonide Respules 0.5 MG/2 ML AMPUL.NEB. INHALATION ×2 (07:00→17:26)
[2024-12-29] MEDS: Albuterol 2.5 MG/3 ML VIAL.NEB. INHALATION ×2 (07:00→17:26)
--- NOTE | 2024-12-29 08:06 | PCM.PN.HOSP ---
Reason for Visit Chief Complaint: Dyspnea, increased hypoxia/oxygen needs, URI sxs, subjective F/C. Subjective Subjective Still coughing up yellow phlegm. Feeling chilled. Objective Data Objective Data Vital Signs: Vital Signs Temp Pulse Resp BP Pulse Ox O2 Del Method O2 Flow Rate 36.6 C 70 18 124/60 H 93 Nasal Cannula 5 12/29/24 03:38 12/29/24 07:01 12/29/24 07:01 12/29/24 03:38 12/29/24 07:01 12/29/24 07:01 12/29/24 07:01 Oxygen Flow Rate (L/min) 5 Oxygen Delivery Method Nasal Cannula Weight: 101.8 kg Body Mass Index (BMI) 31.3 Intake & Output: Intake and Output for Last 24 Hours 12/27/24 12/28/24 12/29/24 23:59 23:59 23:59 Intake Total 1570 / 1570 1390 / 1390 400 / 400 Output Total 1950 / 1950 1750 / 1750 300 / 300 Balance -380 / -380 -360 / -360 100 / 100 Lab / Micro Data 12/28/24 04:03 12/28/24 04:03 Labs: Laboratory Results - last 24 hr 12/28/24 04:03: Diff Path Review Reviewed 12/28/24 12:18: POC Glucose 186 H 12/28/24 16:18: POC Glucose 141 H 12/28/24 21:28: POC Glucose 204 H 12/29/24 06:46: POC Glucose 102 Micro: Microbiology 12/25/24 01:25 Urine, Clean Catch Urine Culture - Final Enterococcus faecalis Yeast, not Elisha albicans GNR lactose functional tester typewriters 12/25/24 20:10 Sputum, Expectorated/Coughed Gram Stain - Final 12/25/24 20:10 Sputum, Expectorated/Coughed Respiratory Culture - Final Presumptive C albicans 12/25/24 00:33 Blood Culture (Wb) - Right Forearm Blood Culture - Preliminary No growth in 48 hours. 12/24/24 23:21 Blood Culture (Wb) - Anticubital Left Blood Culture - Preliminary No growth in 48 hours. 12/25/24 04:56 Mucosa - Nasopharyngeal Respiratory Panel (PCR) - Final 12/25/24 04:00 Nasal Secretion MRSA (PCR) - Final Meth. resistant Staph. aureus 12/25/24 01:25 Urine, Clean Catch Legionella Antigen - Final 12/25/24 01:25 Urine, Clean Catch Streptococcus pneumoniae Antigen (M - Final 12/24/24 23:30 Mucosa - Nose SARS-CoV-2, Influenza & RSV (PCR) - Final Physical Exam Const alert and no apparent distress HEENT head/scalp atraumatic and moist oral mucous membranes Resp normal respiratory effort, no retractions, no use of accessory muscles and clear to auscultation bilaterally Cardio regular rate, regular rhythm, S1 normal heart sound and S2 normal heart sound GI normal to inspection, nondistended, normoactive bowel sounds, soft to palpation, non-tender and non-distended Extremity normal to inspection and full ROM Neuro Sensorium / Orientation: awake and alert Psych affect normal Assessment & Plan Assessment/Plan (1) Pneumonia: PLAN: Plan Acute on Chronic Hypoxic and Hypercarbic Respiratory Failure secondary to bilateral MRSA pneumonia: Chest CTA reviewed and shows bilateral patchy ground glass opacities/acinar densities predominantly right upper lobe. Bilateral pulmonary atelectatic changes with lower lobe bronchial wall thickening. PE ruled out. Pneumonia workup shows respiratory panel and urinary antigens are negative. Triple PCR for SARS-CoV-2, flu and RSV are negative. Nasal MRSA screen positive. SCx positive for MRSA. Patient empirically on IV vancomycin and Unasyn 12/26: Overall patient feeling better than yesterday but is still mild short of breath at rest get worse on exertion. Sputum Gram stain pending. Continue IV antibiotics. Narrowed on the antibiotic Zosyn to Unasyn. Urine culture growing GPC Enterococcus (25,000 and yeastlike organism). UTI ruled out. Oxygen weaned down. MRSA pneumonia continue vanc and pip/tazo. likely drop pip/tazo unless cultures show an additional organism. Pt with ongoing symptoms. Will continue to monitor while inpatient. Chronic medical conditions: CAD: s/p LAD, RCA (2001) and L circumflex (2013), chronic HFrEF, chronic atrial fibrillation: Most recent echocardiogram 08/23/2024 with EF 25 to 30%, severe LV systolic dysfunction, no significant change from previous echocardiogram 05/2024 with EF at that time 25%Continue Coreg, statin therapy. It seems patient is not on baby aspirin probably due to GI bleed. Baby aspirin started as patient is high risk for cardiac complications including [place] and stroke. Patient not on MEDHAT or ARB. 12/26: Bumex 0.5 mg oral changed to IV and Jardiance resumed. Chronic macrocytic anemia/Fe deficiency anemia complicated by history of significant recurrent GI bleeds w/ AVMs: Admission hemoglobin 9.2, MCV 97.6, baseline hemoglobin 8-10, stable, continue to trend. Continue PPI iron supplementation. Monitor CBC following Hematology, most recent visit noted 12/06/24. Hx VTE, DVT and BL PE: Most recent event 07/2021 BL PE, prior DVT, history of significant GI bleeds status post IVC filter placement. Diabetes mellitus type II: Will hold oral regimen, continue long-acting insulin regimen, will maintain on ADA diet, accu checks with ISS. Rheumatoid arthritits: Previously on rituximab and prior also noted to have been on low dose prednisone, will clarify if currently ongoing but may have been discontinued given GI bleed issues. Hypertension: Continue home Coreg, Spironolactone, Lasix with hold parameters as needed given low-normal BP in the ED, PRN hydralazine. Hyperlipidemia: Continue home statin therapy. History of non-Hodgkin's lymphoma: Considered in remission, s/p ABVD and radiation 2010, encourage continued outpatient follow-up with oncology as previously arranged or needed. Anxiety and depression: We will continue patient home escitalopram and mirtazapine regimen. BPH with obstructive pathology: We will continue patient home finasteride and Flomax regimen. Chronic Kidney Disease Stage IIIb: Admission BUN/Cr 50/2.04, GFR 33, baseline renal function more recently 1.7-2.7, seems to vacillate, most recently 12/06/2024 creatinine 2.70, repeat BMP in AM to elucidate current baseline.12/26: Patient creatinine slightly better, 1.8 today. Baseline Bumex 0.5 mg IV resumed. GERD with history of significant recurrent GI bleeds with AVMs: Will continue patient on PPI, as noted above #4. DVT prophylaxis: Heparin cautiously. Charges/Coding Visit Charges Inpatient E&M: 83895 Subs Hosp L2
[2024-12-29] MEDS: Heparin Injection (Vial) 5,000 UNIT/ML VIAL 5000 UNIT SC ×2 (09:25→22:35)
[2024-12-29] MEDS: guaiFENesin/D-Methorphan TAB.SR.12H 2 TABLET PO ×2 (09:26→22:36)
[2024-12-29] MEDS: Aspirin E.C. 81 MG Tablet PO (09:26)
[2024-12-29 10:46] LABS: Vancomycin, Trough Level 25.8 ug/mL (5.0-15.0)
--- NOTE | 2024-12-29 11:08 | PCM.RX.CS ---
Consult Antibiotic Management Pharmacy has been consulted to manage selected antibiotic: Vancomycin Type of Intervention Type of Consult: Follow-up Suspected Infection Suspected Infection: Pneumonia Prior Doses of Antibiotics Prior Doses of Antibiotics Received/Current Regimen: 12/27/24 1000MG of Vancomycin at 1140 12/28/24 1000mg of Vancomycin at 1038 Labs Labs: Sodium 143 mmol/L (133-145) 12/28/24 04:03 Potassium 4.4 mmol/L (3.3-5.1) 12/28/24 04:03 Chloride 106 mmol/L (98-108) 12/28/24 04:03 Carbon Dioxide 24.9 mmol/L (21.0-32.0) 12/28/24 04:03 Anion Gap 12 (5-15) 12/28/24 04:03 BUN 55 mg/dL (4-19) H 12/28/24 04:03 Creatinine 1.83 mg/dL (0.70-1.20) H 12/28/24 04:03 Est GFR (MDRD) Non-Af 38 (>60) L 12/28/24 04:03 BUN/Creatinine Ratio 30.3 RATIO (10-20) H 12/28/24 04:03 Glucose 145 mg/dL (70-99) H 12/28/24 04:03 Vancomycin Trough 25.8 ug/mL (5.0-15.0) H 12/29/24 09:21 Random Vancomycin 20.4 ug/mL (0.0-15.0) H 12/27/24 08:47 Microbiology Microbiology: Microbiology 12/25/24 01:25 Urine, Clean Catch Urine Culture - Final Enterococcus faecalis Yeast, not Elisha albicans GNR lactose legal support assistant 12/25/24 20:10 Sputum, Expectorated/Coughed Gram Stain - Final 12/25/24 20:10 Sputum, Expectorated/Coughed Respiratory Culture - Final Presumptive C albicans 12/25/24 00:33 Blood Culture (Wb) - Right Forearm Blood Culture - Preliminary No growth in 48 hours. 12/24/24 23:21 Blood Culture (Wb) - Anticubital Left Blood Culture - Preliminary No growth in 48 hours. 12/25/24 04:56 Mucosa - Nasopharyngeal Respiratory Panel (PCR) - Final 12/25/24 04:00 Nasal Secretion MRSA (PCR) - Final Meth. resistant Staph. aureus 12/25/24 01:25 Urine, Clean Catch Legionella Antigen - Final 12/25/24 01:25 Urine, Clean Catch Streptococcus pneumoniae Antigen (M - Final 12/24/24 23:30 Mucosa - Nose SARS-CoV-2, Influenza & RSV (PCR) - Final Dosing Weight Weight used for dosin.4 kg Estimated Creatinine Clearance Estimated Creatinine Clearance: 42 Goal Trough Goal Trough: 15-20 mcg/mL Pharmacy Plan for Drug Dosing Pharmacy Plan for Drug Dosing: Hold Vancomycin until 12/30/24 after random Vancomycin level drawn. Pharmacy Service will continue to monitor and adjust dosing as required. Follow-Up Labs Follow-Up Labs: Trough: Other Date/Time Labs Ordered Labs to be done on [date and time ordered]: 12/30/24 @ 0600
--- NOTE | 2024-12-29 15:22 | PCM.PN.ID ---
Physical Exam Narrative Feeling better, no fever, some dyspnea, no n/v/d. Const alert, oriented x3 and no apparent distress General Appearance: cooperative Resp Auscultation: rhonchi and diminished lung sounds Cardio regular rate and regular rhythm GI soft to palpation, non-tender and non-distended Extremity General Extremity: Negative for edema Skin no rashes or lesions noted ID ID: Route of nutrition/ use of supplements: [] Nutritional Intake: [] IV Site: [] Ball Catheter: [] Assessment & Plan Assessment/Plan (1) UTI (urinary tract infection): (2) Pneumonia: PLAN: No fever last night. Feeling better, wbc improved, O2 reqs are better. Ucx with small growth enterococcus. Sputum cx neg so far. Abx narrowed to vancomycin/unasyn. Plan on short course po abx at discharge or finishing while in house. Will follow (3) Acute and chronic respiratory failure with hypercapnia:
--- NOTE | 2024-12-29 16:32 | CASEMGMT ---
TARAH DEL RIO received VM from patient's DIL, requesting call to patient's son Ray. TARAH DEL RIO called [facility], son Ray, no answer, voicemail left with return contact for covering CM for 12/30.
[2024-12-30] VITALS (13 sets, daily range): BP systolic 99–134; BP diastolic 47–81; PULSE 66–90; RESP 16–18; TEMP 36.1–37.3; O2SAT 90–98; BMI 31.1
[2024-12-30] MEDS: Ampicillin/Sulbactam 3 GM in 0.9% Normal Saline (100mL MB+) 100 ML IV (05:07)
[2024-12-30 06:42] LABS: Vancomycin, Random Level 23.1 ug/mL (0.0-15.0)
[2024-12-30] MEDS: Albuterol 2.5 MG/3 ML VIAL.NEB. INHALATION ×3 (07:02→21:23)
[2024-12-30] MEDS: Budesonide Respules 0.5 MG/2 ML AMPUL.NEB. INHALATION ×2 (07:02→21:23)
--- NOTE | 2024-12-30 07:18 | PN.HOSP_ITS ---
Reason for Visit Chief Complaint: Dyspnea, increased hypoxia/oxygen needs, URI sxs, subjective F/C. Subjective Subjective Feeling better. Objective Data Objective Data Vital Signs: Vital Signs Temp Pulse Resp BP Pulse Ox O2 Del Method O2 Flow Rate 36.6 C 76 16 104/81 H 93 Nasal Cannula 3.5 12/30/24 05:00 12/30/24 07:02 12/30/24 07:02 12/30/24 05:00 12/30/24 07:02 12/30/24 07:02 12/30/24 07:02 Oxygen Flow Rate (L/min) 3.5 Oxygen Delivery Method Nasal Cannula Weight: 101.2 kg Body Mass Index (BMI) 31.1 Intake & Output: Intake and Output for Last 24 Hours 12/28/24 12/29/24 12/30/24 23:59 23:59 23:59 Intake Total 1390 / 1390 1060 / 1310 700 / 700 Output Total 1750 / 1750 1300 / 1800 900 / 900 Balance -360 / -360 -240 / -490 -200 / -200 Lab / Micro Data 12/28/24 04:03 12/28/24 04:03 Labs: Laboratory Results - last 24 hr 12/29/24 09:21: Vancomycin Trough 25.8 H 12/29/24 11:22: POC Glucose 182 H 12/29/24 17:02: POC Glucose 203 H 12/29/24 22:39: POC Glucose 107 H 12/30/24 05:43: Random Vancomycin 23.1 H 12/30/24 06:33: POC Glucose 98 Micro: Microbiology 12/24/24 23:21 Blood Culture (Wb) - Anticubital Left Blood Culture - Final No growth in 5 days. 12/25/24 00:33 Blood Culture (Wb) - Right Forearm Blood Culture - Final No growth in 5 days. 12/25/24 01:25 Urine, Clean Catch Urine Culture - Final Enterococcus faecalis Yeast, not Elisha albicans GNR lactose mobile developer 12/25/24 20:10 Sputum, Expectorated/Coughed Gram Stain - Final 12/25/24 20:10 Sputum, Expectorated/Coughed Respiratory Culture - Final Presumptive C albicans 12/25/24 04:56 Mucosa - Nasopharyngeal Respiratory Panel (PCR) - Final 12/25/24 04:00 Nasal Secretion MRSA (PCR) - Final Meth. resistant Staph. aureus 12/25/24 01:25 Urine, Clean Catch Legionella Antigen - Final 12/25/24 01:25 Urine, Clean Catch Streptococcus pneumoniae Antigen (M - Final 12/24/24 23:30 Mucosa - Nose SARS-CoV-2, Influenza & RSV (PCR) - Final Physical Exam Const alert and no apparent distress Constitutional Narrative: no respiratory distress. no conversational dyspnea. HEENT head/scalp atraumatic and moist oral mucous membranes Resp normal respiratory effort Resp Narrative: RLL crackles. Cardio regular rate, regular rhythm, S1 normal heart sound and S2 normal heart sound GI normal to inspection, nondistended, normoactive bowel sounds, soft to palpation, non-tender and non-distended Neuro Sensorium / Orientation: awake and alert Assessment & Plan Assessment/Plan (1) Pneumonia: PLAN: Plan Acute on Chronic Hypoxic and Hypercarbic Respiratory Failure * secondary to bilateral MRSA pneumonia: * Chest CTA reviewed and shows bilateral patchy ground glass opacities/acinar densities predominantly right upper lobe. Bilateral pulmonary atelectatic changes with lower lobe bronchial wall thickening. PE ruled out. * Pneumonia workup shows respiratory panel and urinary antigens are negative. Triple PCR for SARS-CoV-2, flu and RSV are negative. Nasal MRSA screen positive. SCx positive for MRSA. * Patient empirically on IV vancomycin and pip/tazo. * 12/26: Overall patient feeling better than yesterday but is still mild short of breath at rest get worse on exertion. Sputum Gram stain pending. Continue IV antibiotics. Narrowed on the antibiotic Zosyn to Unasyn. Urine culture growing GPC Enterococcus (25,000 and yeastlike organism). UTI ruled out. * Oxygen weaned down. MRSA pneumonia * continue vanc and pip/tazo. * Pt with ongoing symptoms. Will continue to monitor while inpatient. * ID following and ordered blood cultures. Chronic medical conditions: * CAD: s/p LAD, RCA (2001) and L circumflex (2013), chronic HFrEF, chronic atrial fibrillation: Most recent echocardiogram 08/23/2024 with EF 25 to 30%, severe LV systolic dysfunction, no significant change from previous echocardiogram 05/2024 with EF at that time 25%Continue Coreg, statin therapy. It seems patient is not on baby aspirin probably due to GI bleed. Baby aspirin started as patient is high risk for cardiac complications including [place] and stroke. Patient not on MEDHAT or ARB. 12/26: Bumex 0.5 mg oral changed to IV and Jardiance resumed. * Chronic macrocytic anemia/Fe deficiency anemia complicated by history of significant recurrent GI bleeds w/ AVMs: Admission hemoglobin 9.2, MCV 97.6, baseline hemoglobin 8-10, stable, continue to trend. Continue PPI iron supplementation. Monitor CBC following Hematology, most recent visit noted 12/06/24. * Hx VTE, DVT and BL PE: Most recent event 07/2021 BL PE, prior DVT, history of significant GI bleeds status post IVC filter placement. * Diabetes mellitus type II: Will hold oral regimen, continue long-acting insulin regimen, will maintain on ADA diet, accu checks with ISS. * Rheumatoid arthritits: Previously on rituximab and prior also noted to have been on low dose prednisone, will clarify if currently ongoing but may have been discontinued given GI bleed issues. * Hypertension: Continue home Coreg, Spironolactone, Lasix with hold parameters as needed given low-normal BP in the ED, PRN hydralazine. * Hyperlipidemia: Continue home statin therapy. * History of non-Hodgkin's lymphoma: Considered in remission, s/p ABVD and radiation 2010, encourage continued outpatient follow-up with oncology as previously arranged or needed. * Anxiety and depression: We will continue patient home escitalopram and mirtazapine regimen. * BPH with obstructive pathology: We will continue patient home finasteride and Flomax regimen. * Chronic Kidney Disease Stage IIIb: Admission BUN/Cr 50/2.04, GFR 33, baseline renal function more recently 1.7-2.7, seems to vacillate, most recently 12/06/2024 creatinine 2.70, repeat BMP in AM to elucidate current baseline.12/26: Patient creatinine slightly better, 1.8 today. Baseline Bumex 0.5 mg IV resumed. * GERD with history of significant recurrent GI bleeds with AVMs: Will continue patient on PPI, as noted above #4. DVT prophylaxis: Heparin cautiously. Charges/Coding Visit Charges Inpatient E&M: 99553 Subs Hosp L2
--- NOTE | 2024-12-30 07:24 | PCM.RX.CS ---
Consult Antibiotic Management Pharmacy has been consulted to manage selected antibiotic: Vancomycin Type of Intervention Type of Consult: Follow-up Labs Labs: Sodium 143 mmol/L (133-145) 12/28/24 04:03 Potassium 4.4 mmol/L (3.3-5.1) 12/28/24 04:03 Chloride 106 mmol/L (98-108) 12/28/24 04:03 Carbon Dioxide 24.9 mmol/L (21.0-32.0) 12/28/24 04:03 Anion Gap 12 (5-15) 12/28/24 04:03 BUN 55 mg/dL (4-19) H 12/28/24 04:03 Creatinine 1.83 mg/dL (0.70-1.20) H 12/28/24 04:03 Est GFR (MDRD) Non-Af 38 (>60) L 12/28/24 04:03 BUN/Creatinine Ratio 30.3 RATIO (10-20) H 12/28/24 04:03 Glucose 145 mg/dL (70-99) H 12/28/24 04:03 Vancomycin Trough 25.8 ug/mL (5.0-15.0) H 12/29/24 09:21 Random Vancomycin 23.1 ug/mL (0.0-15.0) H 12/30/24 05:43 Microbiology Microbiology: Microbiology 12/24/24 23:21 Blood Culture (Wb) - Anticubital Left Blood Culture - Final No growth in 5 days. 12/25/24 00:33 Blood Culture (Wb) - Right Forearm Blood Culture - Final No growth in 5 days. 12/25/24 01:25 Urine, Clean Catch Urine Culture - Final Enterococcus faecalis Yeast, not Elisha albicans GNR lactose field services manager 12/25/24 20:10 Sputum, Expectorated/Coughed Gram Stain - Final 12/25/24 20:10 Sputum, Expectorated/Coughed Respiratory Culture - Final Presumptive C albicans 12/25/24 04:56 Mucosa - Nasopharyngeal Respiratory Panel (PCR) - Final 12/25/24 04:00 Nasal Secretion MRSA (PCR) - Final Meth. resistant Staph. aureus 12/25/24 01:25 Urine, Clean Catch Legionella Antigen - Final 12/25/24 01:25 Urine, Clean Catch Streptococcus pneumoniae Antigen (M - Final 12/24/24 23:30 Mucosa - Nose SARS-CoV-2, Influenza & RSV (PCR) - Final Goal Trough Goal Trough: 15-20 mcg/mL Pharmacy Plan for Drug Dosing Pharmacy Plan for Drug Dosing: VANCOMYCIN LEVEL RECEIVED Current Vancomycin Dose: ON HOLD d/t previously high trough Number of Doses Received: last dose was 1000mg IV 12/28 @1038 Vancomycin Level: 23.1 (goal 15-20) Hours Since Last Dose: 43hr Renal Function: (labs from 12/28) SCr 1.83/ CrCl 42 mL/min Renal Function Trend: last labs from 12/28, those values improved since admission. No labs ordered upon EMR review, ordering SCr for tomorrow AM with trough level Lab/Micro: SCx growing MRSA, UCx growing E.coccus/GNR/yeast Vancomycin Plan/Comments: Patient had a random trough drawn which resulted in a value of 23.1 (goal 15-20). The patient's trough remains above therapeutic goal. Will continue to hold vancomycin for today and recheck a trough tomorrow AM. Once trough is < 20, will resume vancomycin. Pending Level: *RANDOM* 12/31/24 @0600 Pharmacy Service will continue to monitor and adjust dosing as required.
[2024-12-30] MEDS: Aspirin E.C. 81 MG Tablet PO (08:57)
[2024-12-30] MEDS: Heparin Injection (Vial) 5,000 UNIT/ML VIAL 5000 UNIT SC ×2 (08:59→21:40)
[2024-12-30] MEDS: guaiFENesin/D-Methorphan TAB.SR.12H 2 TABLET PO ×2 (08:59→21:38)
--- NOTE | 2024-12-30 10:30 | PCM.PN.ID ---
Physical Exam Narrative Fever yesterday AM, chills and shakes this AM. Not feeling well. No abd pain, no n/v/d, no sputum, denies dyspnea, no dysuria. Const alert and no apparent distress Constitutional Narrative: ill appearing Resp normal air movement and clear to auscultation bilaterally Cardio regular rate and regular rhythm GI soft to palpation, non-tender and non-distended Skin no rashes or lesions noted ID ID: Route of nutrition/ use of supplements: [] Nutritional Intake: [] IV Site: [] Ball Catheter: [] Assessment & Plan Assessment/Plan (1) UTI (urinary tract infection): (2) Pneumonia: PLAN: Still with intermittent fever. Ucx with small growth enterococcus. Sputum cx neg so far. Abx narrowed to vancomycin/unasyn. Not feeling well this AM. Will check covid, bcx x2, cxr 2v, UA/Ucx, sputum cx. May need CT scans. Will broaden unasyn to zosyn. Will follow (3) Acute and chronic respiratory failure with hypercapnia:
--- NOTE | 2024-12-30 11:01 | CASEMGMT ---
TARAH DEL RIO NOTE: E-mail received from [facility], [place] palliative stating pt is not active with them. Lars VALENTINE RN CM
--- NOTE | 2024-12-30 11:05 | RAD_ITS ---
PROCEDURE: CHEST PA AND LATERAL 12/30/2024 REASON FOR EXAM: FEVER TECHNIQUE: Procedure Code: RADCXR Modality: DX Procedure: CHEST PA AND LATERAL COMPARISON: 12/27/2024 FINDINGS: Hardware: Sternotomy wires are present. Heart: Heart size is mildly enlarged. Mediastinum: The mediastinal contour is unremarkable. Lungs: Persistent mild pulmonary vascular congestion. No definite pneumothorax or sizable pleural effusion. Bones: The bones are unremarkable. RAD/Chest PA and Lateral IMPRESSION: Stable mild cardiomegaly and mild pulmonary vascular congestion. Reading [facility]
--- NOTE | 2024-12-30 11:16 | CASEMGMT ---
Discharge Planning A list of?SNF providers including quality and resource use data and consistent with the patient's preferred geographic region, medical needs, and insurance network was created in CarePort Guide.? This list was provided to the RN QUANG. Batool Zeng, Discharge Planning Asst.
--- NOTE | 2024-12-30 11:39 | CASEMGMT ---
Addendum entered by Scott House 12/30/24 13:42: Call placed to son, Ray. He was made aware of discussion w/pt and that he chose [facility] 1st, that they are not able to accept, and 2nd preference is [facility]. Made aware a referral will be sent today. Ray also made aware pt states does not want to go to a [place] for therapy, but there can be further discussion w/pt and family if [facility] is does not accept. Original Note: TARAH DEL RIO NOTE: RN QUANG placed call to pt's sonRay. Ray states family has concerns w/pt discharging home, stating they feel he should get therapy before going home, and would like him to go to a SNF @ discharge. TARAH DEL RIO explained to Ray that pt would need to be agreeable to SNF as well. He voices understanding. Noted pt has been working w/OT, but had declined PT on 12/25. TARAH DEL RIO to room. Pt made aware of family's concerns. SNF list that was prepared by ángel Renae printer's assistant, given to pt. He states he does not want to go to a [place] facility, but that he would be agreeable to going to [facility] @ discharge. Pt agreeable to working w/PT today, order placed, and call made to therapy to notify them of need for eval. Referral sent to [facility]. Per Janae, residential program coordinator, pt not accepted. Pt made aware. He states his 2nd preference is [facility]. He does not have a 3rd preference yet. ángel Renae printer's assistant, made aware and to send referral to [facility] once PT eval completed. Lars VALENTINE RN, CM
[2024-12-30] MEDS: Piperacil/Tazobactam 3.375 GM in 0.9% Normal Saline (50mL MB+) 50 ML IV ×2 (14:42→21:42)
--- NOTE | 2024-12-30 15:16 | CASEMGMT ---
Addendum entered by Batool Zeng 12/30/24 16:18: [facility] has declined. TARAH CM updated. Batool Zeng DC Planning Asst. Original Note: Discharge Planning Referral sent via CarePort to [facility]. Batool Zeng DC Planning Asst.
--- NOTE | 2024-12-30 16:26 | CASEMGMT ---
TARAH DEL RIO note: RN CM to room. Pt resting in recliner in room. Pt made aware [facility] declined. Pt states he would be agreeable to going to a assisted now for a short-term stay. He asked RN QUANG what other SNF's he could go to. Pt reviewed SNF list w/pt and star-ratings. He states [facility] would be his next preference. ángel Renae educational/development assistant, made aware & will send referral. Lars VALENTINE RN CM
--- NOTE | 2024-12-30 16:28 | CASEMGMT ---
Addendum entered by Batool Zeng 12/31/24 09:23: [facility] has accepted and will submit for precert. TARAH CM updated. Batool Zeng DC Planning Asst. Original Note: Discharge Planning Referral sent to [facility]. Batool Zeng DC Planning Asst.
[2024-12-30] MEDS: Insulin Glargine-YFGN 100 UNIT/ML Pen 15 UNIT SC (21:41)
[2024-12-31] VITALS (16 sets, daily range): BP systolic 86–129; BP diastolic 47–69; PULSE 72–91; RESP 16–19; TEMP 36.1–38.8; O2SAT 88–95; BMI 31.4
[2024-12-31 04:48] LABS: Differential Indicated MANUAL DIFF; Hematocrit 25.0 % (40-54); Hemoglobin 7.8 g/dL (13.0-16.5); Mean Corp Hgb Conc 31.2 g/dL (32-36); Mean Corpuscular Volume 100.4 fL (80-94); Mean Platelet Vol. 11.1 fl (6.2-12.0); POSITIVE COUNT YES; POSITIVE DIFFERENTIAL YES; POSITIVE MORPHOLOGY YES; Platelet Count 304 K/mm3 (150-450); RBC Distribution Width CV 17.2 % (11.6-14.6); RBC Distribution Width SD 62.8 fl (35.1-43.9); Red Blood Count 2.49 M/mm3 (4.6-6.2); White Blood Count 12.0 K/mm3 (4.4-11.0)
[2024-12-31 05:06] LABS: Anion Gap 11 (5-15); BUN 38 mg/dL (4-19); BUN/Creat Ratio 19.6 RATIO (10-20); Calcium,Total 8.4 mg/dL (7.6-11.0); Carbon Dioxide 23.5 mmol/L (21.0-32.0); Chloride 106 mmol/L (98-108); Estimated Creatinine Clearance 40.49 ml/min (50-250); Glucose 112 mg/dL (70-99); Potassium 3.9 mmol/L (3.3-5.1)
[2024-12-31 05:11] LABS: Neutrophil-Band 9 % (0-5); Neutrophil-Segmented 48 % (47-70); Total Cells Counted 100 (MANUAL DIFF)
[2024-12-31 05:12] LABS: Anisocytosis 1+; Polychromasia RARE
[2024-12-31] MEDS: Piperacil/Tazobactam 3.375 GM in 0.9% Normal Saline (50mL MB+) 50 ML IV ×3 (05:20→22:40)
[2024-12-31] MEDS: 0.9% Saline Lock 10 ML Syringe IV ×2 (05:21→22:42)
[2024-12-31 05:24] LABS: Vancomycin, Random Level 14.7 ug/mL (0.0-15.0)
--- NOTE | 2024-12-31 05:44 | PHA.PHARE_ITS ---
Consult Antibiotic Management Pharmacy has been consulted to manage selected antibiotic: Vancomycin Type of Intervention Type of Consult: Follow-up Suspected Infection Suspected Infection: Pneumonia Labs Labs: Sodium 140 mmol/L (133-145) 12/31/24 04:07 Potassium 3.9 mmol/L (3.3-5.1) 12/31/24 04:07 Chloride 106 mmol/L (98-108) 12/31/24 04:07 Carbon Dioxide 23.5 mmol/L (21.0-32.0) 12/31/24 04:07 Anion Gap 11 (5-15) 12/31/24 04:07 BUN 38 mg/dL (4-19) H 12/31/24 04:07 Creatinine 1.91 mg/dL (0.70-1.20) H 12/31/24 04:07 Est GFR (MDRD) Non-Af 36 (>60) L 12/31/24 04:07 BUN/Creatinine Ratio 19.6 RATIO (10-20) 12/31/24 04:07 Glucose 112 mg/dL (70-99) H 12/31/24 04:07 Vancomycin Trough 25.8 ug/mL (5.0-15.0) H 12/29/24 09:21 Random Vancomycin 14.7 ug/mL (0.0-15.0) 12/31/24 04:07 Microbiology Microbiology: Microbiology 12/30/24 14:15 Mucosa - Nasopharyngeal SARS-CoV-2, Influenza & RSV (PCR) - Final 12/24/24 23:21 Blood Culture (Wb) - Anticubital Left Blood Culture - Final No growth in 5 days. 12/25/24 00:33 Blood Culture (Wb) - Right Forearm Blood Culture - Final No growth in 5 days. 12/25/24 01:25 Urine, Clean Catch Urine Culture - Final Enterococcus faecalis Yeast, not Elisha albicans GNR lactose customs opener verifier packer 12/25/24 20:10 Sputum, Expectorated/Coughed Gram Stain - Final 12/25/24 20:10 Sputum, Expectorated/Coughed Respiratory Culture - Final Presumptive C albicans 12/25/24 04:56 Mucosa - Nasopharyngeal Respiratory Panel (PCR) - Final 12/25/24 04:00 Nasal Secretion MRSA (PCR) - Final Meth. resistant Staph. aureus 12/25/24 01:25 Urine, Clean Catch Legionella Antigen - Final 12/25/24 01:25 Urine, Clean Catch Streptococcus pneumoniae Antigen (M - Final 12/24/24 23:30 Mucosa - Nose SARS-CoV-2, Influenza & RSV (PCR) - Final Dosing Weight Weight used for dosin.2 kg Estimated Creatinine Clearance Estimated Creatinine Clearance: 40.5 Goal Trough Goal Trough: 15-20 mcg/mL Pharmacy Plan for Drug Dosing Pharmacy Plan for Drug Dosing: Random vancomycin level fell back to a level, 14.7, to allow continuation of dosing. Per dosing calculator a new dose of 1250mg q 48 hours should give an estimated trough of 16.3. This will be started now, and a trough level will be drawn prior to the third dose. Pharmacy Service will continue to monitor and adjust dosing as required. Follow-Up Labs Follow-Up Labs: Trough: Vancomycin Date/Time Labs Ordered Labs to be done on [date and time ordered]: 01/04/25 @6214
[2024-12-31] MEDS: Vancomycin Trough/Random Due 1 LAB MC (05:45)
[2024-12-31] MEDS: Vancomycin HCl 1,250 MG in 0.9% Normal Saline (250mL Bag) 250 ML 167 MG IV (06:04)
--- NOTE | 2024-12-31 07:33 | PN.HOSP_ITS ---
Reason for Visit Chief Complaint: Dyspnea, increased hypoxia/oxygen needs, URI sxs, subjective F/C. Subjective Subjective No new events. Still with productive cough. Objective Data Objective Data Vital Signs: Vital Signs Temp Pulse Resp BP Pulse Ox O2 Del Method O2 Flow Rate 36.1 C L 72 16 91/47 L 93 Nasal Cannula 4 12/31/24 04:00 12/31/24 04:00 12/31/24 04:00 12/31/24 04:00 12/31/24 04:00 12/31/24 04:00 12/31/24 04:00 Oxygen Flow Rate (L/min) 4 Oxygen Delivery Method Nasal Cannula Weight: 102 kg Body Mass Index (BMI) 31.4 Intake & Output: Intake and Output for Last 24 Hours 12/29/24 12/30/24 12/31/24 23:59 23:59 23:59 Intake Total 1060 / 1310 750 / 810 118.33 / 118.33 Output Total 1300 / 1800 2350 / 2450 300 / 300 Balance -240 / -490 -1600 / -1640 -181.67 / -181.67 Lab / Micro Data 12/31/24 04:07 12/31/24 04:07 Labs: Laboratory Results - last 24 hr 12/30/24 11:25: POC Glucose 146 H 12/30/24 16:48: POC Glucose 102 12/30/24 21:19: POC Glucose 197 H 12/31/24 04:07: WBC 12.0 H, RBC 2.49 L, Hgb 7.8 L, Hct 25.0 L, MCV 100.4 H, MCH 31.3, MCHC 31.2 L, RDW Std Deviation 62.8 H, RDW Coeff of Rafael 17.2 H, Plt Count 304, MPV 11.1, Neut % (Auto) Not Reportable, Absolute Neuts (auto) 6.8, Absolute Lymphs (auto) 3.36, Total Counted 100, Neutrophils % (Manual) 48, Band Neutrophils % 9 H, Lymphocytes % (Manual) 28, Monocytes % (Manual) 8, Eosinophils % (Manual) 3, Metamyelocytes % 1, Myelocytes % 3 H, Platelet Estimate ADEQUATE, Polychromasia RARE, Anisocytosis 1+, Sodium 140, Potassium 3.9, Chloride 106, Carbon Dioxide 23.5, Anion Gap 11, BUN 38 H, Creatinine 1.91 H, Estim Creat Clear Calc 40.49 L, Est GFR (MDRD) Non-Af 36 L, BUN/Creatinine Ratio 19.6, Glucose 112 H, Calcium 8.4, Random Vancomycin 14.7 Micro: Microbiology 12/30/24 14:15 Mucosa - Nasopharyngeal SARS-CoV-2, Influenza & RSV (PCR) - Final 12/24/24 23:21 Blood Culture (Wb) - Anticubital Left Blood Culture - Final No growth in 5 days. 12/25/24 00:33 Blood Culture (Wb) - Right Forearm Blood Culture - Final No growth in 5 days. 12/25/24 01:25 Urine, Clean Catch Urine Culture - Final Enterococcus faecalis Yeast, not Elisha albicans GNR lactose bus boy 12/25/24 20:10 Sputum, Expectorated/Coughed Gram Stain - Final 12/25/24 20:10 Sputum, Expectorated/Coughed Respiratory Culture - Final Presumptive C albicans 12/25/24 04:56 Mucosa - Nasopharyngeal Respiratory Panel (PCR) - Final 12/25/24 04:00 Nasal Secretion MRSA (PCR) - Final Meth. resistant Staph. aureus 12/25/24 01:25 Urine, Clean Catch Legionella Antigen - Final 12/25/24 01:25 Urine, Clean Catch Streptococcus pneumoniae Antigen (M - Final 12/24/24 23:30 Mucosa - Nose SARS-CoV-2, Influenza & RSV (PCR) - Final Radiography Diagnostic Testing: Radiology Impression Chest X-Ray 12/30/24 11:05 IMPRESSION: Stable mild cardiomegaly and mild pulmonary vascular congestion. Reading Location: [facility] Physical Exam Const alert and no apparent distress HEENT head/scalp atraumatic and moist oral mucous membranes Resp normal respiratory effort Resp Narrative: RLL crackles. Cardio regular rate, regular rhythm, S1 normal heart sound and S2 normal heart sound GI normal to inspection, nondistended, normoactive bowel sounds, soft to palpation, non-tender and non-distended Extremity normal to inspection and no clubbing, cyanosis or edema Neuro Sensorium / Orientation: awake and alert Assessment & Plan Assessment/Plan (1) Pneumonia: PLAN: Plan Acute on Chronic Hypoxic and Hypercarbic Respiratory Failure * continues to remain stable. secondary to bilateral MRSA pneumonia: * Chest CTA reviewed and shows bilateral patchy ground glass opacities/acinar densities predominantly right upper lobe. Bilateral pulmonary atelectatic changes with lower lobe bronchial wall thickening. PE ruled out. * Pneumonia workup shows respiratory panel and urinary antigens are negative. Triple PCR for SARS-CoV-2, flu and RSV are negative. Nasal MRSA screen positive. SCx positive for MRSA. * Patient empirically on IV vancomycin and pip/tazo. * 12/26: Overall patient feeling better than yesterday but is still mild short of breath at rest get worse on exertion. Sputum Gram stain pending. Continue IV antibiotics. Narrowed on the antibiotic Zosyn to Unasyn. Urine culture growing GPC Enterococcus (25,000 and yeastlike organism). UTI ruled out. * Oxygen overall able to be weaned down. MRSA pneumonia * continue vanc and pip/tazo. * Pt with ongoing symptoms. Will continue to monitor while inpatient. * ID following and ordered blood cultures on 12/30 Chronic medical conditions: * CAD: s/p LAD, RCA (2001) and L circumflex (2013), chronic HFrEF, chronic atrial fibrillation: Most recent echocardiogram 08/23/2024 with EF 25 to 30%, severe LV systolic dysfunction, no significant change from previous echocardiogram 05/2024 with EF at that time 25%Continue Coreg, statin therapy. It seems patient is not on baby aspirin probably due to GI bleed. Baby aspirin started as patient is high risk for cardiac complications including NV and stroke. Patient not on MEDHAT or ARB. 12/26: Bumex 0.5 mg oral changed to IV and Jardiance resumed. * Chronic macrocytic anemia/Fe deficiency anemia complicated by history of significant recurrent GI bleeds w/ AVMs: Admission hemoglobin 9.2, MCV 97.6, baseline hemoglobin 8-10, stable, continue to trend. Continue PPI iron supplementation. Monitor CBC following Hematology, most recent visit noted 12/06/24. * Hx VTE, DVT and BL PE: Most recent event 07/2021 BL PE, prior DVT, history of significant GI bleeds status post IVC filter placement. * Diabetes mellitus type II: Will hold oral regimen, continue long-acting insulin regimen, will maintain on ADA diet, accu checks with ISS. * Rheumatoid arthritits: Previously on rituximab and prior also noted to have been on low dose prednisone, will clarify if currently ongoing but may have been discontinued given GI bleed issues. * Hypertension: Continue home Coreg, Spironolactone, Lasix with hold parameters as needed given low-normal BP in the ED, PRN hydralazine. * Hyperlipidemia: Continue home statin therapy. * History of non-Hodgkin's lymphoma: Considered in remission, s/p ABVD and radiation 2010, encourage continued outpatient follow-up with oncology as previously arranged or needed. * Anxiety and depression: We will continue patient home escitalopram and mirtazapine regimen. * BPH with obstructive pathology: We will continue patient home finasteride and Flomax regimen. * Chronic Kidney Disease Stage IIIb: Admission BUN/Cr 50/2.04, GFR 33, baseline renal function more recently 1.7-2.7, seems to vacillate, most recently 12/06/2024 creatinine 2.70, repeat BMP in AM to elucidate current baseline.12/26: Patient creatinine slightly better, 1.8 today. Baseline Bumex 0.5 mg IV resumed. * GERD with history of significant recurrent GI bleeds with AVMs: Will continue patient on PPI, as noted above #4. DVT prophylaxis: Heparin cautiously. Disposition: to SNF to [facility] when medically stable and when approval is obtained. Awaiting on final cultures and would anticipate the patient being medically ready on 01/01 barring any setbacks. So, with waiting on precent, hopefully we can discharge on 01/03 Charges/Coding Visit Charges Inpatient E&M: 38295 Subs Hosp L2
[2024-12-31] MEDS: Budesonide Respules 0.5 MG/2 ML AMPUL.NEB. INHALATION ×2 (07:39→19:23)
[2024-12-31] MEDS: Albuterol 2.5 MG/3 ML VIAL.NEB. INHALATION ×3 (07:39→19:22)
[2024-12-31 09:53] LABS: Mucous, Urine 0 SEEN /hpf (<or=2+)
[2024-12-31 09:54] LABS: Color, Urine Yellow (Yellow); Glucose, Dipstick 250 mg/dl (Normal); Ketone-Dipstick Negative (Negative); Leukocyte Esterase-Dipstick 500 /ul (Negative); Nitrite-Dipstick Negative (Negative); Occult Blood-Urine 150 /ul (Negative); Protein-Dipstick 30 mg/dl (Negative); Specific Gravity, Urine 1.015 (1.002-1.030); Urine Bilirubin Dipstick Negative (Negative)
[2024-12-31 10:11] LABS: Red Blood Cells-Urine 0-5 SEEN /hpf (0-5); Squamous Epithelial Cells - UA 0-5 SEEN /hpf (0-5); Yeast-Urine 4+ /hpf (None Seen)
[2024-12-31] MEDS: guaiFENesin/D-Methorphan TAB.SR.12H 2 TABLET PO ×2 (10:19→22:31)
--- NOTE | 2024-12-31 10:22 | CASEMGMT ---
Discharge Planning Green Sheet and transport form completed and sent to RN CM. Batool Zeng DC Planning Asst.
--- NOTE | 2024-12-31 11:27 | CASEMGMT ---
TARAH DEL RIO updated by DC advertising assistant that [facility] has accepted patient and precert was requested. RN CM in to update patient, patient sleeping. RN QUANG called son and HPOA, Ray, and updated regarding acceptance to [facility] and now awaiting precert. Ray voiced understanding. Ray had no further questions or concerns. RN QUANG completed PASRR and copies placed in chart and discharge. Green sheet placed on chart if precert obtained and patient medically ready.
--- NOTE | 2024-12-31 13:03 | PCM.PN.ID ---
Physical Exam Narrative Feeling ok, no fever Const no apparent distress General Appearance: cooperative Resp Auscultation: diminished lung sounds Cardio regular rate and regular rhythm GI soft to palpation, non-tender and non-distended Skin no rashes or lesions noted ID ID: Route of nutrition/ use of supplements: [] Nutritional Intake: [] IV Site: [] Ball Catheter: [] Assessment & Plan Assessment/Plan (1) UTI (urinary tract infection): (2) Pneumonia: PLAN: On admit, Ucx with small growth enterococcus. Sputum cx neg so far. Had ongoing fever, so changed vanc/unasyn to vanc/zosyn 12/30. New workup neg so far, no further fever, likely d/c soon off of abx if remains stable and afebrile. Will follow (3) Acute and chronic respiratory failure with hypercapnia:
--- NOTE | 2024-12-31 14:35 | CASEMGMT ---
L[facility] has obtained auth to admit. It is good through 01/01/25. RN CM updated. Batool Zeng DC Planning Asst.
--- NOTE | 2024-12-31 14:45 | CHAPLAIN ---
Type of Pastoral Visit ___ Initial Visit ___ Follow-up Visit ___ On-call Visit ___ General Patient Visit ___ Spiritual Assessment ___ Family Conference ___ Bereavement ___ Rapid Response ___ Code Blue ___ Other (describe below) Pastoral Care Referral From ___ Patient ___ Family ___ Nurse ___ Physician ___ Silk Screener ___ Certified Medical Records Coder ___ Other (describe below) Sacrament/Intervention ___ Active listening ___ Anointing ___ Restorationist ___ Bereavement ___ Communion ___ Lily exploration ___ ___ Life review ___ Prayer ___ Reconciliation ___ Sacrament of Sick ___ Supportive presence ___ Wedding ___ Other (describe below) Pastoral Comments two attempts made to visit and the patient is sound asleep; left a calling card
--- NOTE | 2024-12-31 15:23 | CHAPLAIN ---
Type of Pastoral Visit _x__ Initial Visit ___ Follow-up Visit ___ On-call Visit ___ General Patient Visit ___ Spiritual Assessment ___ Family Conference ___ Bereavement ___ Rapid Response ___ Code Blue ___ Other (describe below) Pastoral Care Referral From _x__ Patient ___ Family ___ Nurse ___ Physician ___ Electric Deicer Assembler ___ Chief Quality Officer ___ Other (describe below) Sacrament/Intervention _x__ Active listening ___ Anointing ___ Zoroastrianism ___ Bereavement ___ Communion ___ Lily exploration ___ ___ Life review ___ Prayer ___ Reconciliation ___ Sacrament of Sick ___ Supportive presence ___ Wedding ___ Other (describe below) Pastoral Comments on third attempt today found 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
[2024-12-31] MEDS: Heparin Injection (Vial) 5,000 UNIT/ML VIAL 5000 UNIT SC (22:31)
[2025-01-01] VITALS (15 sets, daily range): BP systolic 93–129; BP diastolic 47–82; PULSE 70–96; RESP 16–22; TEMP 36.8–38.4; O2SAT 87–97
[2025-01-01 04:37] LABS: Hematocrit 24.0 % (40-54); Hemoglobin 7.5 g/dL (13.0-16.5); Mean Corp Hgb Conc 31.3 g/dL (32-36); Mean Corpuscular Volume 99.6 fL (80-94); Mean Platelet Vol. 11.2 fl (6.2-12.0); POSITIVE COUNT YES; POSITIVE DIFFERENTIAL YES; POSITIVE MORPHOLOGY YES; Platelet Count 303 K/mm3 (150-450); RBC Distribution Width CV 17.2 % (11.6-14.6); RBC Distribution Width SD 62.2 fl (35.1-43.9); Red Blood Count 2.41 M/mm3 (4.6-6.2); White Blood Count 11.5 K/mm3 (4.4-11.0)
[2025-01-01 04:41] LABS: Differential Indicated MANUAL DIFF
[2025-01-01] MEDS: Piperacil/Tazobactam 3.375 GM in 0.9% Normal Saline (50mL MB+) 50 ML IV ×3 (05:06→21:00)
[2025-01-01 05:09] LABS: Anion Gap 11 (5-15); BUN 36 mg/dL (4-19); BUN/Creat Ratio 18.3 RATIO (10-20); Calcium,Total 8.5 mg/dL (7.6-11.0); Carbon Dioxide 23.7 mmol/L (21.0-32.0); Chloride 108 mmol/L (98-108); Estimated Creatinine Clearance 39.81 ml/min (50-250); Glucose 117 mg/dL (70-99); Potassium 4.4 mmol/L (3.3-5.1)
[2025-01-01 05:27] LABS: Neutrophil-Band 32 % (0-5); Neutrophil-Segmented 31 % (47-70); Total Cells Counted 100 (MANUAL DIFF)
[2025-01-01 05:28] LABS: Differential Comment SCANNED
[2025-01-01 05:29] LABS: Red Cell Morphology N CYTIC NORMAL (NORM C&C)
[2025-01-01] MEDS: Albuterol 2.5 MG/3 ML VIAL.NEB. INHALATION ×3 (07:47→19:15)
[2025-01-01] MEDS: Budesonide Respules 0.5 MG/2 ML AMPUL.NEB. INHALATION ×2 (07:47→19:15)
[2025-01-01] MEDS: Aspirin E.C. 81 MG Tablet PO (09:32)
[2025-01-01] MEDS: guaiFENesin/D-Methorphan TAB.SR.12H 2 TABLET PO ×2 (09:32→21:00)
--- NOTE | 2025-01-01 09:47 | PN.HOSP_ITS ---
Reason for Visit Chief Complaint: Dyspnea, increased hypoxia/oxygen needs, URI sxs, subjective F/C. Subjective Subjective breathing ok. still coughing up phlegm. Ongoing fevers Objective Data Objective Data Vital Signs: Vital Signs Temp Pulse Resp BP Pulse Ox O2 Del Method O2 Flow Rate 38.2 C H 85 18 115/74 91 Nasal Cannula 6 01/01/25 09:26 01/01/25 09:26 01/01/25 09:26 01/01/25 09:26 01/01/25 09:26 01/01/25 09:26 01/01/25 09:26 FiO2 92 01/01/25 07:49 Oxygen Flow Rate (L/min) 6 Oxygen Delivery Method Nasal Cannula Weight: 102 kg Body Mass Index (BMI) 31.4 Intake & Output: Intake and Output for Last 24 Hours 12/30/24 12/31/24 01/01/25 23:59 23:59 23:59 Intake Total 750 / 810 785.00 / 785.00 200 / 200 Output Total 2350 / 2450 500 / 500 200 / 200 Balance -1600 / -1640 285.00 / 285.00 0 / 0 Lab / Micro Data 01/01/25 03:29 01/01/25 03:29 Labs: Laboratory Results - last 24 hr 12/31/24 09:40: Urine Color Yellow, Urine Clarity Cloudy, Urine pH 6.0, Ur Specific [place] 1.015, Urine Protein 30 H, Urine Glucose (UA) 250 H, Urine Ketones Negative, Urine Occult Blood 150 H, Urine Nitrite Negative, Urine Bilirubin Negative, Urine Urobilinogen Normal, Ur Leukocyte Esterase 500 H, Urine RBC 0-5 SEEN, Urine WBC 50-100 SEEN, Ur Squamous Epith Cells 0-5 SEEN, Urine Bacteria RARE, Urine Mucus 0 SEEN, Urine Yeast 4+ 12/31/24 11:13: POC Glucose 150 H 12/31/24 16:31: POC Glucose 170 H 12/31/24 22:20: POC Glucose 61 L 12/31/24 23:09: POC Glucose 102 01/01/25 02:09: POC Glucose 123 H 01/01/25 03:29: WBC 11.5 H, RBC 2.41 L, Hgb 7.5 L, Hct 24.0 L, MCV 99.6 H, MCH 31.1, MCHC 31.3 L, RDW Std Deviation 62.2 H, RDW Coeff of Rafael 17.2 H, Plt Count 303, MPV 11.2, Neut % (Auto) Not Reportable, Absolute Neuts (auto) 7.3, Absolute Lymphs (auto) 1.50, Total Counted 100, Neutrophils % (Manual) 31 L, Band Neutrophils % 32 H, Lymphocytes % (Manual) 13 L, Monocytes % (Manual) 8, E osinophils % (Manual) 6 H, Metamyelocytes % 4 H, Myelocytes % 4 H, Promyelocytes % 2 H, Differential Comment SCANNED, Platelet Estimate SLT INC, RBC Morphology N CYTIC, Sodium 142, Potassium 4.4, Chloride 108, Carbon Dioxide 23.7, Anion Gap 11, BUN 36 H, Creatinine 1.95 H, Estim Creat Clear Calc 39.81 L, Est GFR (MDRD) Non-Af 35 L, BUN/Creatinine Ratio 18.3, Glucose 117 H, Calcium 8.5 01/01/25 06:05: POC Glucose 104 Micro: Microbiology 12/31/24 09:40 Urine, Clean Catch Urine Culture - Preliminary Culture exhibits no growth. 12/30/24 14:15 Mucosa - Nasopharyngeal SARS-CoV-2, Influenza & RSV (PCR) - Final 12/24/24 23:21 Blood Culture (Wb) - Anticubital Left Blood Culture - Final No growth in 5 days. 12/25/24 00:33 Blood Culture (Wb) - Right Forearm Blood Culture - Final No growth in 5 days. 12/25/24 01:25 Urine, Clean Catch Urine Culture - Final Enterococcus faecalis Yeast, not Elisha albicans GNR lactose books binder 12/25/24 20:10 Sputum, Expectorated/Coughed Gram Stain - Final 12/25/24 20:10 Sputum, Expectorated/Coughed Respiratory Culture - Final Presumptive C albicans 12/25/24 04:56 Mucosa - Nasopharyngeal Respiratory Panel (PCR) - Final 12/25/24 04:00 Nasal Secretion MRSA (PCR) - Final Meth. resistant Staph. aureus 12/25/24 01:25 Urine, Clean Catch Legionella Antigen - Final 12/25/24 01:25 Urine, Clean Catch Streptococcus pneumoniae Antigen (M - Final 12/24/24 23:30 Mucosa - Nose SARS-CoV-2, Influenza & RSV (PCR) - Final Physical Exam Const alert and no apparent distress Constitutional Narrative: no respiratory distress. no conversational dyspnea. HEENT head/scalp atraumatic and moist oral mucous membranes Resp normal respiratory effort, no retractions, no use of accessory muscles and clear to auscultation bilaterally Cardio regular rate, regular rhythm, S1 normal heart sound and S2 normal heart sound GI normal to inspection, nondistended, normoactive bowel sounds, soft to palpation, non-tender and non-distended Assessment & Plan Assessment/Plan (1) Pneumonia: PLAN: Plan Acute on Chronic Hypoxic and Hypercarbic Respiratory Failure * continues to remain stable. secondary to bilateral MRSA pneumonia: * Chest CTAshows bilateral patchy ground glass opacities/acinar densities predominantly right upper lobe. Bilateral pulmonary atelectatic changes with lower lobe bronchial wall thickening. PE ruled out. * Pneumonia workup shows respiratory panel and urinary antigens are negative. Triple PCR for SARS-CoV-2, flu and RSV are negative. Nasal MRSA screen positive. SCx positive for MRSA. * Patient empirically on IV vancomycin and pip/tazo. * 12/26: Overall patient feeling better than yesterday but is still mild short of breath at rest get worse on exertion. Sputum Gram stain pending. Continue IV antibiotics. Narrowed on the antibiotic Zosyn to Unasyn. Urine culture growing GPC Enterococcus (25,000 and yeastlike organism). UTI ruled out. * Oxygen overall had able to be weaned down, but since has been increasing. * 01/01: oxygen around 4.5. Still coughing up phlegm. Fevers overnight (Tmax 38.8). add PEP. If persists, repeat CXR. MRSA pneumonia * continue vanc and pip/tazo. * Pt with ongoing symptoms. Will continue to monitor while inpatient. * ID following and ordered blood cultures on 12/30. Reviewed, still negative. Chronic medical conditions: * CAD: s/p LAD, RCA (2001) and L circumflex (2013), chronic HFrEF, chronic atrial fibrillation: Most recent echocardiogram 08/23/2024 with EF 25 to 30%, severe LV systolic dysfunction, no significant change from previous echocardiogram 05/2024 with EF at that time 25%Continue Coreg, statin therapy. It seems patient is not on baby aspirin probably due to GI bleed. Baby aspirin started as patient is high risk for cardiac complications including AL and stroke. Patient not on MEDHAT or ARB. 12/26: Bumex 0.5 mg oral changed to IV and Jardiance resumed. * Chronic macrocytic anemia/Fe deficiency anemia complicated by history of significant recurrent GI bleeds w/ AVMs: Admission hemoglobin 9.2, MCV 97.6, baseline hemoglobin 8-10, stable, continue to trend. Continue PPI iron supplementation. Monitor CBC following Hematology, most recent visit noted 12/06/24. * Hx VTE, DVT and BL PE: Most recent event 07/2021 BL PE, prior DVT, history of significant GI bleeds status post IVC filter placement. * Diabetes mellitus type II: Will hold oral regimen, continue long-acting insulin regimen, will maintain on ADA diet, accu checks with ISS. * Rheumatoid arthritits: Previously on rituximab and prior also noted to have been on low dose prednisone, will clarify if currently ongoing but may have been discontinued given GI bleed issues. * Hypertension: Continue home Coreg, Spironolactone, Lasix with hold parameters as needed given low-normal BP in the ED, PRN hydralazine. * Hyperlipidemia: Continue home statin therapy. * History of non-Hodgkin's lymphoma: Considered in remission, s/p ABVD and radiation 2010, encourage continued outpatient follow-up with oncology as previously arranged or needed. * Anxiety and depression: We will continue patient home escitalopram and mirtazapine regimen. * BPH with obstructive pathology: We will continue patient home finasteride and Flomax regimen. * Chronic Kidney Disease Stage IIIb: Admission BUN/Cr 50/2.04, GFR 33, baseline renal function more recently 1.7-2.7, seems to vacillate, most recently 12/06/2024 creatinine 2.70, repeat BMP in AM to elucidate current baseline.12/26: Patient creatinine slightly better, 1.8 today. Baseline Bumex 0.5 mg IV resumed. * GERD with history of significant recurrent GI bleeds with AVMs: Will continue patient on PPI, as noted above #4. DVT prophylaxis: Heparin cautiously. Disposition: to SNF to [facility] when medically stable. Since patient to be monitored further, precert lapses today (01/01). Will monitor. Precert will need to be resubmitted on 01/03. Updated patient's son, Ray. Charges/Coding Visit Charges Inpatient E&M: 19998 Subs Hosp L2
[2025-01-01] MEDS: Heparin Injection (Vial) 5,000 UNIT/ML VIAL 5000 UNIT SC ×2 (10:55→20:59)
[2025-01-01] MEDS: Insulin Glargine-YFGN 100 UNIT/ML Pen 15 UNIT SC (21:00)
[2025-01-01] MEDS: 0.9% Saline Lock 10 ML Syringe IV (21:01)
[2025-01-02] VITALS (9 sets, daily range): BP systolic 107–122; BP diastolic 51–68; PULSE 71–85; RESP 18–24; TEMP 36.3–37.7; O2SAT 84–98; BMI 30.4
[2025-01-02] MEDS: 0.9% Saline Lock 10 ML Syringe IV ×4 (05:38→22:26)
[2025-01-02] MEDS: Vancomycin HCl 1,250 MG in 0.9% Normal Saline (250mL Bag) 250 ML 167 MG IV (05:38)
[2025-01-02] MEDS: Piperacil/Tazobactam 3.375 GM in 0.9% Normal Saline (50mL MB+) 50 ML IV ×3 (05:38→22:25)
[2025-01-02 06:54] LABS: Hematocrit 25.3 % (40-54); Hemoglobin 8.1 g/dL (13.0-16.5); Mean Corp Hgb Conc 32.0 g/dL (32-36); Mean Corpuscular Volume 100.0 fL (80-94); Mean Platelet Vol. 10.3 fl (6.2-12.0); POSITIVE COUNT YES; POSITIVE DIFFERENTIAL YES; POSITIVE MORPHOLOGY YES; Platelet Count 310 K/mm3 (150-450); RBC Distribution Width CV 17.2 % (11.6-14.6); RBC Distribution Width SD 63.1 fl (35.1-43.9); Red Blood Count 2.53 M/mm3 (4.6-6.2); White Blood Count 13.4 K/mm3 (4.4-11.0)
[2025-01-02 06:57] LABS: Differential Indicated MANUAL DIFF
[2025-01-02 07:20] LABS: Anion Gap 10 (5-15); BUN 38 mg/dL (4-19); BUN/Creat Ratio 17.6 RATIO (10-20); Calcium,Total 8.7 mg/dL (7.6-11.0); Carbon Dioxide 23.7 mmol/L (21.0-32.0); Chloride 109 mmol/L (98-108); Estimated Creatinine Clearance 36.10 ml/min (50-250); Glucose 148 mg/dL (70-99); Potassium 4.7 mmol/L (3.3-5.1)
[2025-01-02] MEDS: Budesonide Respules 0.5 MG/2 ML AMPUL.NEB. INHALATION ×2 (07:26→18:45)
[2025-01-02] MEDS: Albuterol 2.5 MG/3 ML VIAL.NEB. INHALATION ×2 (07:26→18:45)
[2025-01-02] MEDS: Aspirin E.C. 81 MG Tablet PO (08:26)
[2025-01-02] MEDS: Heparin Injection (Vial) 5,000 UNIT/ML VIAL 5000 UNIT SC ×2 (08:26→22:30)
[2025-01-02] MEDS: guaiFENesin/D-Methorphan TAB.SR.12H 2 TABLET PO ×2 (08:26→22:29)
[2025-01-02 08:48] LABS: Neutrophil-Band 2 % (0-5); Neutrophil-Segmented 68 % (47-70); Nucleated Red Bld Cells,Manual 1 % (0-5); Total Cells Counted 100 (MANUAL DIFF)
[2025-01-02 08:52] LABS: Polychromasia 1+
--- NOTE | 2025-01-02 09:08 | PN.HOSP_ITS ---
Reason for Visit Chief Complaint: Dyspnea, increased hypoxia/oxygen needs, URI sxs, subjective F/C. Subjective Subjective Saw patient at bedside this morning. Patient was fatigued appearing but otherwise laying back comfortably in bed and answering questions appropriately. Low-grade fever to 99.1 F this morning patient does report feeling somewhat feverish. No other new concerns today. Objective Data Objective Data Vital Signs: Vital Signs Temp Pulse Resp BP Pulse Ox O2 Del Method O2 Flow Rate 99.1 F 82 24 H 119/52 L 92 Nasal Cannula 6 01/02/25 08:17 01/02/25 08:17 01/02/25 08:17 01/02/25 08:17 01/02/25 08:17 01/02/25 08:17 01/02/25 08:17 Oxygen Flow Rate (L/min) 6 Oxygen Delivery Method Nasal Cannula Weight: 99.2 kg Body Mass Index (BMI) 30.4 Intake & Output: Intake and Output for Last 24 Hours 12/31/24 01/01/25 01/02/25 23:59 23:59 23:59 Intake Total 785.00 / 785.00 780 / 780 50 / 50 Output Total 500 / 500 600 / 600 225 / 225 Balance 285.00 / 285.00 180 / 180 -175 / -175 Lab / Micro Data 01/02/25 06:28 01/02/25 06:28 Labs: Laboratory Results - last 24 hr 01/01/25 11:01: POC Glucose 117 H 01/01/25 16:06: POC Glucose 178 H 01/01/25 20:55: POC Glucose 180 H 01/02/25 06:10: POC Glucose 134 H 01/02/25 06:28: WBC 13.4 H, RBC 2.53 L, Hgb 8.1 L, Hct 25.3 L, MCV 100.0 H, MCH 32.0, MCHC 32.0, RDW Std Deviation 63.1 H, RDW Coeff of Rafael 17.2 H, Plt Count 310, MPV 10.3, Neut % (Auto) Not Reportable, Absolute Neuts (auto) 9.1 H, Absolute Lymphs (auto) 2.14, Total Counted 100, Neutrophils % (Manual) 68, Band Neutrophils % 2, Lymphocytes % (Manual) 16 L, Monocytes % (Manual) 7, Eosinophils % (Manual) 3, Basophils % (Manual) 1, Metamyelocytes % 2 H, M yelocytes % 1 H, Nucleated RBCs/100 WBC 1, Platelet Estimate ADEQUATE, Polychromasia 1+, Sodium 143, Potassium 4.7, Chloride 109 H, Carbon Dioxide 23.7, Anion Gap 10, BUN 38 H, Creatinine 2.15 H, Estim Creat Clear Calc 36.10 L, Est GFR (MDRD) Non-Af 31 L, BUN/Creatinine Ratio 17.6, Glucose 148 H, Calcium 8.7 01/02/25 08:21: POC Glucose 133 H Micro: Microbiology 12/31/24 09:40 Urine, Clean Catch Urine Culture - Preliminary 12/30/24 12:27 Blood Culture (Wb) - Left Hand Blood Culture - Preliminary No growth in 48 hours. 12/30/24 12:12 Blood Culture (Wb) - Anticubital Right Blood Culture - Preliminary No growth in 48 hours. 12/30/24 14:15 Mucosa - Nasopharyngeal SARS-CoV-2, Influenza & RSV (PCR) - Final 12/24/24 23:21 Blood Culture (Wb) - Anticubital Left Blood Culture - Final No growth in 5 days. 12/25/24 00:33 Blood Culture (Wb) - Right Forearm Blood Culture - Final No growth in 5 days. 12/25/24 01:25 Urine, Clean Catch Urine Culture - Final Enterococcus faecalis Yeast, not Elisha albicans GNR lactose bisque kiln drawer 12/25/24 20:10 Sputum, Expectorated/Coughed Gram Stain - Final 12/25/24 20:10 Sputum, Expectorated/Coughed Respiratory Culture - Final Presumptive C albicans 12/25/24 04:56 Mucosa - Nasopharyngeal Respiratory Panel (PCR) - Final 12/25/24 04:00 Nasal Secretion MRSA (PCR) - Final Meth. resistant Staph. aureus 12/25/24 01:25 Urine, Clean Catch Legionella Antigen - Final 12/25/24 01:25 Urine, Clean Catch Streptococcus pneumoniae Antigen (M - Final 12/24/24 23:30 Mucosa - Nose SARS-CoV-2, Influenza & RSV (PCR) - Final Physical Exam Const alert and no apparent distress Constitutional Narrative: no respiratory distress. no conversational dyspnea. HEENT head/scalp atraumatic and moist oral mucous membranes Resp normal respiratory effort, no retractions, no use of accessory muscles and clear to auscultation bilaterally Cardio regular rate, regular rhythm, S1 normal heart sound and S2 normal heart sound GI normal to inspection, nondistended, normoactive bowel sounds, soft to palpation, non-tender and non-distended Assessment & Plan Assessment/Plan (1) Pneumonia: PLAN: Plan Patient is a 74-year-old male who presented to [facility] ED on 12/25/2024 with shortness of breath, URI symptoms and fever/chills. Acute on Chronic Hypoxic and Hypercarbic Respiratory Failure * Home O2 requirements verified by CM: 4 L at rest, 6 L with exertion, 3 L at night * continues to remain stable. secondary to bilateral MRSA pneumonia: * Chest CTAshows bilateral patchy ground glass opacities/acinar densities predominantly right upper lobe. Bilateral pulmonary atelectatic changes with lower lobe bronchial wall thickening. PE ruled out. * Pneumonia workup shows respiratory panel and urinary antigens are negative. Triple PCR for SARS-CoV-2, flu and RSV are negative. Nasal MRSA screen positive. SCx positive for MRSA. * Patient empirically on IV vancomycin and pip/tazo. * 12/26: Overall patient feeling better than yesterday but is still mild short of breath at rest get worse on exertion. Sputum Gram stain pending. Continue IV antibiotics. Narrowed on the antibiotic Zosyn to Unasyn. Urine culture growing GPC Enterococcus (25,000 and yeastlike organism). UTI ruled out. * Oxygen overall had able to be weaned down, but since has been increasing. * 01/01: oxygen around 4.5. Still coughing up phlegm. Fevers overnight (Tmax 38.8). add PEP. * 01/02: No fevers overnight. Oxygen at 5 L this morning with saturations in the low to mid 90s. Continue current management. MRSA pneumonia * continue vanc and pip/tazo. * Pt with ongoing symptoms. Will continue to monitor while inpatient. * ID following and ordered blood cultures on 12/30. Reviewed, still negative. Will continue antibiotics through tomorrow, appreciate further ID recs. Chronic medical conditions: * CAD: s/p LAD, RCA (2001) and L circumflex (2013), chronic HFrEF, chronic atrial fibrillation: Most recent echocardiogram 08/23/2024 with EF 25 to 30%, severe LV systolic dysfunction, no significant change from previous echocardiogram 05/2024 with EF at that time 25%. Continue Coreg, statin therapy. It seems patient is not on baby aspirin probably due to GI bleed. Baby aspirin started as patient is high risk for cardiac complications including CA and stroke. Patient not on MEDHAT or ARB. 12/26: Bumex 0.5 mg oral changed to IV and Jardiance resumed. 01/02: Creatinine slightly rising as below. Will continue IV Bumex today but if creatinine continues to worsen tomorrow, recommend de-escalating to p.o. Bumex. * Chronic macrocytic anemia/Fe deficiency anemia complicated by history of significant recurrent GI bleeds w/ AVMs: Admission hemoglobin 9.2, MCV 97.6, baseline hemoglobin 8-10, stable, continue to trend. Continue PPI iron supplementation. Following Hematology, most recent visit noted 12/06/24. * Hx VTE, DVT and BL PE: Most recent event 07/2021 BL PE, prior DVT, history of significant GI bleeds status post IVC filter placement. * Diabetes mellitus type II: Will hold oral regimen, continue long-acting insulin regimen, will maintain on ADA diet, accu checks with ISS. * Rheumatoid arthritits: Previously on rituximab and prior also noted to have been on low dose prednisone, will clarify if currently ongoing but may have been discontinued given GI bleed issues. * Hypertension: Continue home Coreg, Spironolactone, Lasix with hold parameters as needed given low-normal BP in the ED, PRN hydralazine. * Hyperlipidemia: Continue home statin therapy. * History of non-Hodgkin's lymphoma: Considered in remission, s/p ABVD and radiation 2010, encourage continued outpatient follow-up with oncology as previously arranged or needed. * Anxiety and depression: We will continue patient home escitalopram and mirtazapine regimen. * BPH with obstructive pathology: We will continue patient home finasteride and Flomax regimen. * Chronic Kidney Disease Stage IIIb: Admission BUN/Cr 50/2.04, GFR 33, baseline renal function more recently 1.7-2.7, seems to vacillate, most recently 12/06/2024 creatinine 2.70, repeat BMP in AM to elucidate current baseline. 12/26: Patient creatinine slightly better, 1.8 today. Baseline Bumex 0.5 mg IV resumed. 01/02: Creatinine 2.15, slightly up from previous days at 1.8-1.9. Follow-up a.m. BMP and if still worsening, recommend de-escalating to p.o. Bumex. * GERD with history of significant recurrent GI bleeds with AVMs: Will continue patient on PPI, as noted above #4. DVT prophylaxis: Heparin cautiously. Code status: DNRCCA, DNI Disposition: to SNF to [facility] when medically stable. Since patient to be monitored further, precert lapsed on 01/01. Will monitor. Precert will need to be resubmitted on 01/03. Total clinical time spent by myself addressing the patient's medical issues, reviewing all the data, and collaborating with patient's care team: 41 minutes. Charges/Coding Visit Charges Inpatient E&M: 60621 Subs Hosp L2
[2025-01-02] MEDS: Insulin Glargine-YFGN 100 UNIT/ML Pen 15 UNIT SC (22:28)
[2025-01-03] VITALS (11 sets, daily range): BP systolic 100–127; BP diastolic 49–62; PULSE 64–97; RESP 16–20; TEMP 36.2–38.4; O2SAT 91–99; BMI 30.7
[2025-01-03] MEDS: Piperacil/Tazobactam 3.375 GM in 0.9% Normal Saline (50mL MB+) 50 ML IV ×3 (05:15→21:48)
[2025-01-03 06:21] LABS: Hematocrit 22.4 % (40-54); Hemoglobin 7.0 g/dL (13.0-16.5); Mean Corp Hgb Conc 31.3 g/dL (32-36); Mean Corpuscular Volume 100.4 fL (80-94); Mean Platelet Vol. 11.1 fl (6.2-12.0); Platelet Count 365 K/mm3 (150-450); RBC Distribution Width CV 17.5 % (11.6-14.6); RBC Distribution Width SD 64.4 fl (35.1-43.9); Red Blood Count 2.23 M/mm3 (4.6-6.2); White Blood Count 13.1 K/mm3 (4.4-11.0)
[2025-01-03] MEDS: Budesonide Respules 0.5 MG/2 ML AMPUL.NEB. INHALATION ×2 (06:41→16:09)
[2025-01-03] MEDS: Albuterol 2.5 MG/3 ML VIAL.NEB. INHALATION ×3 (06:41→16:09)
[2025-01-03 06:55] LABS: Anion Gap 11 (5-15); BUN 34 mg/dL (4-19); BUN/Creat Ratio 16.4 RATIO (10-20); Calcium,Total 8.7 mg/dL (7.6-11.0); Carbon Dioxide 22.9 mmol/L (21.0-32.0); Chloride 106 mmol/L (98-108); Estimated Creatinine Clearance 37.53 ml/min (50-250); Glucose 92 mg/dL (70-99); Potassium 3.9 mmol/L (3.3-5.1)
[2025-01-03] MEDS: Aspirin E.C. 81 MG Tablet PO (08:08)
[2025-01-03] MEDS: guaiFENesin/D-Methorphan TAB.SR.12H 2 TABLET PO ×2 (08:10→21:50)
[2025-01-03] MEDS: Heparin Injection (Vial) 5,000 UNIT/ML VIAL 5000 UNIT SC (08:16)
--- NOTE | 2025-01-03 10:35 | CASEMGMT ---
Discharge Planning Pts precert has . Updates sent via [facility] to [facility] with note that pt is not ready for new precert to be submitted just yet. Batool Zeng DC Planning Asst.
--- NOTE | 2025-01-03 14:51 | PCM.PN.ID ---
Physical Exam Narrative Feeling about the same, still some temps, sputum. Const alert and no apparent distress General Appearance: cooperative Resp Auscultation: diminished lung sounds Cardio regular rate and regular rhythm GI soft to palpation, non-tender and non-distended Skin no rashes or lesions noted ID ID: Route of nutrition/ use of supplements: [] Nutritional Intake: [] IV Site: [] Ball Catheter: [] Assessment & Plan Assessment/Plan (1) UTI (urinary tract infection): (2) Pneumonia: PLAN: On admit, Ucx with small growth enterococcus. Sputum cx neg so far. Had ongoing fever, so changed vanc/unasyn to vanc/zosyn 12/30. No further fever. Sputum and urine with yeast, will add fluc. Plan on stopping vanc/zosyn soon. Will follow (3) Acute and chronic respiratory failure with hypercapnia:
--- NOTE | 2025-01-03 15:45 | PN.HOSP_ITS ---
Reason for Visit Chief Complaint: Dyspnea, increased hypoxia/oxygen needs, URI sxs, subjective F/C. Objective Data Objective Data Vital Signs: Vital Signs Temp Pulse Resp BP Pulse Ox O2 Del Method O2 Flow Rate 99.5 F H 81 18 119/60 92 Nasal Cannula 6 01/03/25 13:56 01/03/25 13:56 01/03/25 13:56 01/03/25 13:56 01/03/25 13:56 01/03/25 13:56 01/03/25 13:56 Oxygen Flow Rate (L/min) 6 Oxygen Delivery Method Nasal Cannula Weight: 220 lb 10.923 oz Body Mass Index (BMI) 30.7 Intake & Output: Intake and Output for Last 24 Hours 01/01/25 01/02/25 01/03/25 23:59 23:59 23:59 Intake Total 780 / 780 1025 / 1025 620 / 620 Output Total 600 / 600 1025 / 1025 550 / 550 Balance 180 / 180 0 / 0 70 / 70 Lab / Micro Data 01/03/25 05:31 01/03/25 05:31 Labs: Laboratory Results - last 24 hr 01/02/25 16:01: POC Glucose 234 H 01/02/25 22:19: POC Glucose 150 H 01/03/25 05:31: WBC 13.1 H, RBC 2.23 L, Hgb 7.0 L, Hct 22.4 L, MCV 100.4 H, MCH 31.4, MCHC 31.3 L, RDW Std Deviation 64.4 H, RDW Coeff of Rafael 17.5 H, Plt Count 365, MPV 11.1, Sodium 140, Potassium 3.9, Chloride 106, Carbon Dioxide 22.9, Anion Gap 11, BUN 34 H, Creatinine 2.05 H, Estim Creat Clear Calc 37.53 L, Est GFR (MDRD) Non-Af 33 L, BUN/Creatinine Ratio 16.4, Glucose 92, Calcium 8.7 01/03/25 07:30: POC Glucose 90 01/03/25 10:56: POC Glucose 127 H Micro: Microbiology 01/01/25 17:30 Sputum, Expectorated/Coughed Gram Stain - Final 01/01/25 17:30 Sputum, Expectorated/Coughed Respiratory Culture - Preliminary Presumptive C albicans 12/31/24 09:40 Urine, Clean Catch Urine Culture - Final Yeast, not Elisha albicans 12/30/24 12:27 Blood Culture (Wb) - Left Hand Blood Culture - Preliminary No growth in 48 hours. 12/30/24 12:12 Blood Culture (Wb) - Anticubital Right Blood Culture - Preliminary No growth in 48 hours. 12/30/24 14:15 Mucosa - Nasopharyngeal SARS-CoV-2, Influenza & RSV (PCR) - Final 12/24/24 23:21 Blood Culture (Wb) - Anticubital Left Blood Culture - Final No growth in 5 days. 12/25/24 00:33 Blood Culture (Wb) - Right Forearm Blood Culture - Final No growth in 5 days. 12/25/24 01:25 Urine, Clean Catch Urine Culture - Final Enterococcus faecalis Yeast, not Elisha albicans GNR lactose mortgage originator 12/25/24 20:10 Sputum, Expectorated/Coughed Gram Stain - Final 12/25/24 20:10 Sputum, Expectorated/Coughed Respiratory Culture - Final Presumptive C albicans 12/25/24 04:56 Mucosa - Nasopharyngeal Respiratory Panel (PCR) - Final 12/25/24 04:00 Nasal Secretion MRSA (PCR) - Final Meth. resistant Staph. aureus 12/25/24 01:25 Urine, Clean Catch Legionella Antigen - Final 12/25/24 01:25 Urine, Clean Catch Streptococcus pneumoniae Antigen (M - Final 12/24/24 23:30 Mucosa - Nose SARS-CoV-2, Influenza & RSV (PCR) - Final Physical Exam Narrative Seen and examined Patient had low-grade fever Tmax 100.2 Fahrenheit in the morning today. Still short of breath even at rest get worse on mild exertion. On 6 L of oxygen. Physical exam General: Alert, Oriented x3, Cooperative. BMI 30.8 kg/m? HEENT: Atraumatic, PERRLA, EOMI, Normocephalic. Oral: No Gingival or Mucosal Lesions/ Ulcerations Neck: Supple, No JVD, Negative Carotid Bruits Chest wall/Lungs: Air entry diminished in all lung luu. Mild coarse crepitations. Cardiovascular: Regular rate and rhythm, Normal S1,S2, systolic murmur Abdomen: Bowel Sounds Present, Soft, Non Tender, Non-Distended : No dysuria. No renal angle tenderness. No suprapubic tenderness. Extremities: Minimal chronic edema, Capillary Refill Less than 3 Seconds Skin: No rashes, No breakdown Musculoskeletal: No Tenderness to Palpation of Joints or Extremities. ROM restricted Neurological: Cranial nerves II-XII grossly intact, DTR 2+/4. No acute focal neurological deficit. Psych/Mental Status: Flat affect. Assessment & Plan Assessment/Plan (1) Pneumonia: PLAN: Plan Patient is a 74-year-old male who presented to [facility] ED on 12/25/2024 with shortness of breath, URI symptoms and fever/chills. 1. Acute on Chronic Hypoxic and Hypercarbic Respiratory Failure secondary to bilateral MRSA pneumonia * Home O2 requirements verified by CM: 4 L at rest, 6 L with exertion, 3 L at night * Chest CTAshows bilateral patchy ground glass opacities/acinar densities predominantly right upper lobe. Bilateral pulmonary atelectatic changes with lower lobe bronchial wall thickening. PE ruled out. * Pneumonia workup shows respiratory panel and urinary antigens are negative. Triple PCR for SARS-CoV-2, flu and RSV are negative. Nasal MRSA screen positive. SCx positive for MRSA. * Patient empirically on IV vancomycin and pip/tazo during admission. Zosyn was changed to Unasyn with intention to narrow down the antibiotic on 12/26. With intermittent fever, ID changed Unasyn to Zosyn on 12/30 01/03: Patient is still having fever Tmax 100.2 Fahrenheit. On 6 L of oxygen 2. MRSA pneumonia * continue vanc and pip/tazo. * Pt with ongoing symptoms. Will continue to monitor while inpatient. * ID following and ordered blood cultures on 12/30. Reviewed, still negative. Will continue antibiotics through tomorrow, appreciate further ID recs. 01/03: ID follow-up reviewed. Sputum culture negative so far. Urine culture Enterococcus but not in pathology range. Ongoing fever therefore vancomycin changed to IV Zosyn on 12/30. Sputum culture and urine culture with yeast, fluconazole added. 3. UTI ruled out: Urine culture growing GPC Enterococcus (25,000 and yeastlike organism) from 12/25. Repeat urine culture shows Elisha albicans 4. CAD: s/p LAD, RCA (2001) and L circumflex (2013), chronic HFrEF, chronic atrial fibrillation: Most recent echocardiogram 08/23/2024 with EF 25 to 30%, severe LV systolic dysfunction, no significant change from previous echocardiogram 05/2024 with EF at that time 25%. Continue Coreg, statin therapy. It seems patient is not on baby aspirin probably due to GI bleed. Baby aspirin started as patient is high risk for cardiac complications including KS and stroke. Patient not on MEDHAT or ARB. * Bumex 0.5 mg oral changed to IV and Jardiance resumed. * 01/02: Creatinine slightly rising as below. continue IV Bumex today but if creatinine continues to worsen tomorrow, recommend de-escalating to p.o. Bumex. 5. Chronic macrocytic anemia/Fe deficiency anemia complicated by history of significant recurrent GI bleeds w/ AVMs: Admission hemoglobin 9.2, MCV 97.6, baseline hemoglobin 8-10, stable, continue to trend. Continue PPI iron supplementation. Following Hematology, most recent visit noted 12/06/24. 01/03: H&H dropped to 7.0/22.4%. Platelet count normal. Monitor H&H in the evening today. Hold baby aspirin and heparin subcu. 6 Hx VTE, DVT and BL PE: Most recent event 07/2021 BL PE, prior DVT, history of significant GI bleeds status post IVC filter placement. 7. Diabetes mellitus type II: Will hold oral regimen, continue long-acting insulin regimen, will maintain on ADA diet, accu checks with ISS. 8. Rheumatoid arthritits: Previously on rituximab and prior also noted to have been on low dose prednisone, will clarify if currently ongoing but may have been discontinued given GI bleed issues. 9. Hypertension: Continue home Coreg, Spironolactone, Lasix with hold parameters as needed given low-normal BP in the ED, PRN hydralazine. 10. Hyperlipidemia: Continue home statin therapy. 11. History of non-Hodgkin's lymphoma: Considered in remission, s/p ABVD and radiation 2010, encourage continued outpatient follow-up with oncology as previously arranged or needed. 12 anxiety and depression: continue patient home escitalopram and mirtazapine regimen. 13 BPH with obstructive pathology: We will continue patient home finasteride and Flomax regimen. 14. Chronic Kidney Disease Stage IIIb: Admission BUN/Cr 50/2.04, GFR 33, baseline renal function more recently 1.7-2.7, seems to vacillate, most recently 12/06/2024 creatinine 2.70, repeat BMP in AM to elucidate current baseline. 12/26: Patient creatinine slightly better, 1.8 today. Baseline Bumex 0.5 mg IV resumed. 01/02: Creatinine 2.15, slightly up from previous days at 1.8-1.9. 01/03: BUN/creatinine 34/2.05. No significant change. 15. GERD with history of significant recurrent GI bleeds with AVMs: Will continue patient on PPI, as noted above #4. DVT prophylaxis: Heparin cautiously. Code status: DNRCCA, DNI Disposition: to SNF to [facility] when medically stable. Says patient's pre-CERT labs in 1 days therefore when patient is medically ready then needs to apply pre- CERT. Discussed with the disability case manager Total time of the visit including total time spent in counseling or coordination of care, (more than 50% of the total time, spent in obtaining medical information from nurses and other ancillary care providers ,explaining to the patient about labs, imaging, diagnosis and management of active complex medical conditions), , review of labs and imaging is 35 minutes. Microbiology Past 72 Hours 01/01/25 17:30 Sputum, Expectorated/Coughed Gram Stain - Final 01/01/25 17:30 Sputum, Expectorated/Coughed Respiratory Culture - Preliminary Presumptive C albicans 12/31/24 09:40 Urine, Clean Catch Urine Culture - Final Yeast, not Elisha albicans 12/30/24 12:27 Blood Culture (Wb) - Left Hand Blood Culture - Preliminary No growth in 48 hours. 12/30/24 12:12 Blood Culture (Wb) - Anticubital Right Blood Culture - Preliminary No growth in 48 hours. Laboratory Results 01/02/25 16:01: POC Glucose 234 H 01/02/25 22:19: POC Glucose 150 H 01/03/25 05:31: WBC 13.1 H, RBC 2.23 L, Hgb 7.0 L, Hct 22.4 L, MCV 100.4 H, MCH 31.4, MCHC 31.3 L, RDW Std Deviation 64.4 H, RDW Coeff of Rafael 17.5 H, Plt Count 365, MPV 11.1, Sodium 140, Potassium 3.9, Chloride 106, Carbon Dioxide 22.9, Anion Gap 11, BUN 34 H, Creatinine 2.05 H, Estim Creat Clear Calc 37.53 L, Est GFR (MDRD) Non-Af 33 L, BUN/Creatinine Ratio 16.4, Glucose 92, Calcium 8.7 01/03/25 07:30: POC Glucose 90 01/03/25 10:56: POC Glucose 127 H Charges/Coding Visit Charges Inpatient E&M: 22494 Subs Hosp L3
[2025-01-03 21:16] LABS: Hematocrit 21.4 % (40-54); Hemoglobin 7.0 g/dL (13.0-16.5)
[2025-01-03] MEDS: Insulin Glargine-YFGN 100 UNIT/ML Pen 15 UNIT SC (21:47)
--- NOTE | 2025-01-03 22:42 | PCM.HOSP.N ---
Hospitalist Note Repeat hgb ordered for this evening is 7.0, matching this AM's level but still remains 1gm less than yesterday. Pt is requiring 6L O2 via NC and has some LANDAVERDE; Home O2 requirements verified by CM: 4 L at rest, 6 L with exertion, 3 L at night. Due to increased O2 demands, LANDAVERDE, and hgb of 7.0, I ordered T&S&cross of 2units PRBCs with 1 unit to be transfused when ready. Repeat H/H in AM w/labs. Last echo 6.30.25 w/EF of 25%, advised nrsg staff to not infuse blood at max rate. Consider furosemide, but will wait post-transfusion to assess fluid status d/t elevated BUN and creatinine.
[2025-01-04] VITALS (12 sets, daily range): BP systolic 96–139; BP diastolic 58–83; PULSE 57–86; RESP 16–20; TEMP 36.4–38.6; O2SAT 92–100; BMI 31.1
[2025-01-04] MEDS: Piperacil/Tazobactam 3.375 GM in 0.9% Normal Saline (50mL MB+) 50 ML IV ×3 (05:23→21:49)
[2025-01-04 06:03] LABS: Differential Indicated MANUAL DIFF; Hematocrit 24.2 % (40-54); Hemoglobin 7.7 g/dL (13.0-16.5); Mean Corp Hgb Conc 31.8 g/dL (32-36); Mean Corpuscular Volume 97.6 fL (80-94); Mean Platelet Vol. 10.3 fl (6.2-12.0); POSITIVE COUNT YES; POSITIVE DIFFERENTIAL YES; POSITIVE MORPHOLOGY YES; Platelet Count 348 K/mm3 (150-450); RBC Distribution Width CV 18.8 % (11.6-14.6); RBC Distribution Width SD 66.4 fl (35.1-43.9); Red Blood Count 2.48 M/mm3 (4.6-6.2); White Blood Count 14.5 K/mm3 (4.4-11.0)
[2025-01-04 06:22] LABS: Anion Gap 9 (5-15); BUN 35 mg/dL (4-19); BUN/Creat Ratio 16.4 RATIO (10-20); Calcium,Total 9.0 mg/dL (7.6-11.0); Carbon Dioxide 24.4 mmol/L (21.0-32.0); Chloride 110 mmol/L (98-108); Estimated Creatinine Clearance 36.68 ml/min (50-250); Glucose 152 mg/dL (70-99); Potassium 4.4 mmol/L (3.3-5.1)
[2025-01-04] MEDS: Vancomycin Trough/Random Due 1 LAB MC (06:26)
[2025-01-04] MEDS: Budesonide Respules 0.5 MG/2 ML AMPUL.NEB. INHALATION ×2 (06:39→19:30)
[2025-01-04 07:20] LABS: Vancomycin, Trough Level 14.0 ug/mL (5.0-15.0)
[2025-01-04 07:36] LABS: Neutrophil-Band 1 % (0-5); Neutrophil-Segmented 69 % (47-70); Total Cells Counted 100 (MANUAL DIFF)
[2025-01-04 07:41] LABS: Anisocytosis 1+
--- NOTE | 2025-01-04 08:02 | PHA.PHARE_ITS ---
Consult Antibiotic Management Pharmacy has been consulted to manage selected antibiotic: Vancomycin Type of Intervention Type of Consult: Follow-up Labs Labs: Sodium 144 mmol/L (133-145) 01/04/25 05:50 Potassium 4.4 mmol/L (3.3-5.1) 01/04/25 05:50 Chloride 110 mmol/L (98-108) H 01/04/25 05:50 Carbon Dioxide 24.4 mmol/L (21.0-32.0) 01/04/25 05:50 Anion Gap 9 (5-15) 01/04/25 05:50 BUN 35 mg/dL (4-19) H 01/04/25 05:50 Creatinine 2.11 mg/dL (0.70-1.20) H 01/04/25 05:50 Est GFR (MDRD) Non-Af 32 (>60) L 01/04/25 05:50 BUN/Creatinine Ratio 16.4 RATIO (10-20) 01/04/25 05:50 Glucose 152 mg/dL (70-99) H 01/04/25 05:50 Vancomycin Trough 14.0 ug/mL (5.0-15.0) 01/04/25 05:50 Random Vancomycin 14.7 ug/mL (0.0-15.0) 12/31/24 04:07 Microbiology Microbiology: Microbiology 01/01/25 17:30 Sputum, Expectorated/Coughed Gram Stain - Final 01/01/25 17:30 Sputum, Expectorated/Coughed Respiratory Culture - Preliminary Presumptive C albicans 12/31/24 09:40 Urine, Clean Catch Urine Culture - Final Yeast, not Elisha albicans 12/30/24 12:27 Blood Culture (Wb) - Left Hand Blood Culture - Preliminary No growth in 48 hours. 12/30/24 12:12 Blood Culture (Wb) - Anticubital Right Blood Culture - Preliminary No growth in 48 hours. 12/30/24 14:15 Mucosa - Nasopharyngeal SARS-CoV-2, Influenza & RSV (PCR) - Final 12/24/24 23:21 Blood Culture (Wb) - Anticubital Left Blood Culture - Final No growth in 5 days. 12/25/24 00:33 Blood Culture (Wb) - Right Forearm Blood Culture - Final No growth in 5 days. 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 resistant Staph. aureus 12/25/24 01:25 Urine, Clean Catch Legionella Antigen - Final 12/25/24 01:25 Urine, Clean Catch Streptococcus pneumoniae Antigen (M - Final 12/24/24 23:30 Mucosa - Nose SARS-CoV-2, Influenza & RSV (PCR) - Final Pharmacy Plan for Drug Dosing Pharmacy Plan for Drug Dosing: VANCOMYCIN LEVEL RECEIVED Current Vancomycin Dose: 1250mg Q48 Number of Doses Received: many Vancomycin Level: 14 mg/dL Hours Since Last Dose: 48 Renal Function: SCr 2.11 mg/dL, CrCl 36 mL/min Renal Function Trend: stable Vancomycin Plan/Comments: 48 hour trough is slightly subtherapeutic at 14 mg/dL (goal 15-20). Will increase dose to 1500mg and get a trough prior to 3rd dose of new regimen. Pending Level: 01/08/25 @ 0730 Pharmacy Service will continue to monitor and adjust dosing as required.
[2025-01-04] MEDS: Vancomycin HCl 1,500 MG in 0.9% Normal Saline (500mL Bag) 500 ML 250 MG IV (08:17)
[2025-01-04] MEDS: guaiFENesin/D-Methorphan TAB.SR.12H 2 TABLET PO ×2 (09:16→21:38)
--- NOTE | 2025-01-04 09:31 | CT_ITS ---
PROCEDURE: CT CHEST, ABD, PELVIS WO CONT 01/04/2025 REASON FOR EXAM: FEVER Elevated white count. Renal insufficiency. History of non-Hodgkin's lymphoma. TECHNIQUE: Chest, abdomen and pelvis CT without intravenous contrast. Coronal and Sagittal reconstruction series were provided. One or more dose reduction techniques were used (e.g., Automated exposure control, adjustment of the mA and/or kV according to patient size, use of iterative reconstruction technique. RADIATION DOSE SUMMARY: CTDlvol: 23.6 mGy DLP: 2533.35 mGycm COMPARISON: Prior CT scan of the chest dated December 25, 2024. FINDINGS: CT CHEST: Hardware: EKG electrodes are seen. Lymph nodes: No significant mediastinal or axillary lymph node seen. Heart and Vasculature: Prior CABG. Coronary artery calcification. Calcification of the mitral valve annulus. Minimal anterior pericardial thickening. Atherosclerotic calcification of the aortic arch and descending thoracic aorta. Coronary Artery Calcifications: Present Lungs and Airways: Small bilateral pleural effusions with bibasilar atelectasis and/or infiltrates superimposed on scarring slightly worse at the left lung base. Stable mild degree of bronchiectasis in the lower lobes worse on the left side. Bones: Degenerative changes of the thoracic spine. CT ABDOMEN / PELVIS: Noncontrast technique limits evaluation of the abdominal and pelvic viscera. Liver: Normal size. No mass. Gallbladder: Small gallstones are seen along the dependent portion of the gallbladder lumen. Spleen: Normal size. Pancreas: Normal size without evidence of mass surrounding inflammation or ductal dilation. Adrenals: Unremarkable Kidneys: 3.1 cm cyst in the medial upper aspect of the right kidney. No evidence of hydronephrosis. Bladder: The urinary bladder is distended. Central prostatic calcification. The prostate is not enlarged. Bowel: Moderate amount of fecal material is seen in the rectosigmoid colon. Appendix: Unremarkable Lymph nodes: Unremarkable. Vasculature: Mild diffuse atherosclerotic calcifications are noted. A filter is seen within the inferior vena cava. Peritoneum / Retroperitoneum: Unremarkable Bones: Degenerative changes of the spine. CT/CT Chest, Abd, Pelvis WO Cont IMPRESSION: Small bilateral pleural effusions with bibasilar atelectasis and/or slightly in filtrates slightly worse on the left side. Reading Location: [id number]
--- NOTE | 2025-01-04 10:11 | PCM.PN.ID ---
Physical Exam Narrative Chills this Am, no fever, breathing stable, having some loose stool Const alert and no apparent distress General Appearance: cooperative Resp clear to auscultation bilaterally Auscultation: diminished lung sounds Cardio regular rate and regular rhythm GI soft to palpation, non-tender and non-distended Skin no rashes or lesions noted ID ID: Route of nutrition/ use of supplements: [] Nutritional Intake: [] IV Site: [] Ball Catheter: [] Assessment & Plan Assessment/Plan (1) UTI (urinary tract infection): (2) Pneumonia: PLAN: On admit, Ucx with small growth enterococcus. Sputum cx neg so far. Had ongoing fever, so changed vanc/unasyn to vanc/zosyn 12/30. No further fever. Sputum and urine with yeast, 01/03/25 added fluc. Still with fever, will check CTs and cdiff. Will follow (3) Acute and chronic respiratory failure with hypercapnia:
--- NOTE | 2025-01-04 15:18 | PCM.CONS.R ---
Assessment & Plan Assessment/Plan (1) Chronic kidney disease, stage 3b: PLAN: In July of this year, creatinine was close to 1.4-1.5 range. Over the last 2 to 3 months, creatinine has been between 1.8-2.0. Urine analysis appears to be fairly concentrated, 1+ protein, glycosuria from SGLT2 inhibitor, some cells. CT abdomen without any hydronephrosis. He says he was struggling with lower extremity edema, has been on diuretics as outpatient. Presented with shortness of breath, suspected to be from pneumonia, likely some component of fluid overload as well. CT chest reviewed, possible edema pattern. Okay to continue IV Lasix for now. Change in creatinine is likely hemodynamic shifts from ongoing diuresis. Will continue to follow. HPI Consult Data Date of Consult: 01/04/25 HPI Narrative Reason for Consultation: CKD versus LUIS HPI Narrative: SAL ALONZO, is a 74 M who presents to the hospital with shortness of breath. Nephrology on consultation in view of renal failure. Primary care physician is Dr. Gomez. Current creatinine around 2.0. On review of his lab data, his creatinine in July was around 1.4-1.5, over the last 2 to 3 months, creatinine is closer to 2.0. Presented with shortness of breath, being treated for suspected MRSA pneumonia, has been on vancomycin. Levels reviewed He said he had a moderate amount of lower extremity edema, was started on diuretics by primary care physician, recently cut back due to increasing creatinine denies any urinary complaints, obstructive symptoms. History of rheumatoid arthritis, apparently was on rituximab, currently on prednisone orally. [facility] Medical History Acute and chronic respiratory failure with hypercapnia Type 2 VT (myocardial infarction) MRSA (methicillin resistant staph aureus) culture positive Ischemic cardiomyopathy COVID-19 Lethargic COPD with acute exacerbation Elevated troponin I level LUIS (acute kidney injury) Hypoxemia Chronic kidney disease (CKD), stage III (moderate) Acute hypoxic on chronic hypercapnic respiratory failure FTT (failure to thrive) in adult Former smoker On home oxygen therapy Bleeding tendency Ulcer High cholesterol History of stress test HTN (hypertension) Tobacco abuse History of pulmonary embolus (PE) (04/30/21) Essential hypertension Type 2 diabetes mellitus DVT (deep venous thrombosis) (05/01/21) Rhinovirus Acute respiratory failure with hypoxia Physical debility COVID-19 in immunocompromised patient Nicotine dependence, cigarettes, uncomplicated Diabetes Arthritis Cancer COPD (chronic obstructive pulmonary disease) History of basal cell carcinoma Atherosclerosis of coronary artery of [place] heart without angina pectoris Pneumonia Non-Hodgkin lymphoma History of pilonidal cyst Allergic rhinitis 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 complications Gastritis Colon polyp Obesity Asthma Chronic bronchitis Positive colorectal cancer screening using Cologuard test RA (rheumatoid arthritis) Home Medications ?Medication ?Instructions ?Recorded ?Last Taken ?Type finasteride 5 mg tablet 5 mg PO DAILY prostate 08/14/22 07/07/24 History tamsulosin 0.4 mg capsule 0.4 mg PO QHS prostate 08/14/22 07/07/24 History multivitamin 1 tab PO DAILY vitamin 09/13/22 07/07/24 History mirtazapine 15 mg tablet (Remeron) 7.5 mg (1/2 x 15 mg) PO QHS sleep 10/29/23 07/07/24 Rx #90 tabs needle (disp) 32 gauge 32 gauge x #100 ea 11/12/23 Unknown Rx 5/16 (Easy Touch Hypodermic Needle) pen needle, diabetic 32 gauge x #100 ea 12/03/23 Unknown Rx /32 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 sensor (FreeStyle #1 ea 12/24/23 Unknown Rx Basilio 3 Sensor device) 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,vessel slagman,cont #1 ea 12/24/23 Unknown Rx (FreeStyle Basilio 3 Berwind) ferrous sulfate 325 mg (65 mg 325 mg PO QODAY Supplement 04/05/24 07/07/24 History iron) tablet (FeroSul) cholecalciferol (vitamin D3) 50 50 mcg PO QDAY 06/28/24 07/07/24 History mcg (2,000 unit) capsule pantoprazole 40 mg tablet,delayed 40 mg PO DAILY 30 days #0 tabs 08/25/24 07/07/24 Rx release (Protonix) sennosides 8.6 mg-docusate sodium 2 tab PO BID PRN Constipation #0 08/25/24 Unknown Rx 50 mg tablet (Stimulant Laxative tabs Plus) albuterol sulfate 90 mcg/actuation 2 puff inhalation Q6 PRN shortness 09/24/24 Unknown History aerosol inhaler of breath or wheezing budesonide 1 mg/2 mL suspension 1 mg (2 mL) inhalation Q12H 09/24/24 Unknown Rx for nebulization wheezing/SOB #120 mL atorvastatin 40 mg tablet 40 mg PO QHS #90 tabs 10/08/24 Unknown Rx carvedilol 6.25 mg tablet 6.25 mg PO BID BP #180 tabs 10/08/24 Unknown Rx spironolactone 25 mg tablet 25 mg PO DAILY #90 tabs 10/08/24 Unknown Rx empagliflozin 10 mg tablet 10 mg PO DAILY #90 TABLETS 11/10/24 Unknown Rx (Jardiance) ipratropium 0.5 mg-albuterol 3 mg 3 ml inhalation Q4H PRN PRN SOB 11/26/24 Unknown Rx (2.5 mg base)/3 mL nebulization &/OR WHEEZING #270 mL soln escitalopram oxalate 10 mg tablet 10 mg PO DAILY mood 90 days #90 11/29/24 Unknown Rx tabs bumetanide 0.5 mg tablet 0.5 mg PO QDAY #180 tabs 12/17/24 Unknown Rx insulin aspart U-100 100 unit/mL See Rx Instructions subcut 12/23/24 Unknown Rx (3 mL) subcutaneous pen .COMPLEX High Blood Glucose #15 mL insulin glargine-yfgn 100 unit/mL See Rx Instructions subcut BIDCM 12/23/24 Unknown Rx (3 mL) subcutaneous pen high blood glucose #15 mL OXYGEN - Supplemental ([facility] hypoxia 12/25/24 Unknown History INFORMATIONAL USE ONLY) Allergy/AdvReac Type Severity Reaction Status Date / Time No Known Allergies Allergy Verified 12/06/24 10:24 Family History Father Arthritis Bleeding disorder Hypertension Kidney disease Cancer Skin Anemia blood clots Emphysema lung Mother Colon cancer Cancer Lung Cancer Diabetes Brother Thyroid disorder Surgical History History of embolic filter insertion History of heart artery stent Status post cardiac surgery H/O cardiac catheterization Presence of IVC filter (04/2021) History of coronary artery stent placement (10/22/13) History of thymectomy Hx of lymph node excision History of excision of pilonidal cyst Social History household members: spouse Smoking Status: Former smoker Tobacco: How many years used: 55 second hand exposure: Yes alcohol intake: current alcohol intake frequency: holidays/special occasions only substance use type: does not use caffeine: Yes Type: coffee Number of servings: 3 what type of physical activity do you participate in: none frequency: does not exercise seatbelt use: always ROS ROS Narrative Negative except above Physical Exam Narrative Alert awake oriented x 3 no obvious distress no pallor no icterus no JVD s1s2 no murmurs lungs clear abdomen soft no organomegaly Lab / Micro Data 01/04/25 05:50 01/04/25 05:50 Labs: Laboratory Results - last 24 hr 01/03/25 15:50: POC Glucose 198 H 01/03/25 20:44: Hgb 7.0 L, Hct 21.4 L 01/03/25 21:45: POC Glucose 259 H 01/03/25 23:20: Blood Type AB POSITIVE, Antibody Screen NEGATIVE, Crossmatch See Detail 01/04/25 05:50: WBC 14.5 H, RBC 2.48 L, Hgb 7.7 L, Hct 24.2 L, MCV 97.6 H, MCH 31.0, MCHC 31.8 L, RDW Std Deviation 66.4 H, RDW Coeff of Rafael 18.8 H, Plt Count 348, MPV 10.3, Neut % (Auto) Not Reportable, Absolute Neuts (auto) 10.2 H, Absolute Lymphs (auto) 2.46, Total Counted 100, Neutrophils % (Manual) 69, Band Neutrophils % 1, Lymphocytes % (Manual) 17 L, Monocytes % (Manual) 10, Eosinophils % (Manual) 2, Metamyelocytes % 1, Atypical Lymphocytes RARE, Anisocytosis 1+, Sodium 144, Potassium 4.4, Chloride 110 H, Carbon Dioxide 24.4, Anion Gap 9, BUN 35 H, Creatinine 2.11 H, Estim Creat Clear Calc 36.68 L, Est GFR (MDRD) Non-Af 32 L, BUN/Creatinine Ratio 16.4, Glucose 152 H, Calcium 9.0, Vancomycin Trough 14.0 01/04/25 08:56: POC Glucose 125 H 01/04/25 13:09: POC Glucose 143 H Micro: Microbiology 12/30/24 12:12 Blood Culture (Wb) - Anticubital Right Blood Culture - Final No growth in 5 days. 12/30/24 12:27 Blood Culture (Wb) - Left Hand Blood Culture - Final No growth in 5 days. 01/04/25 11:16 Stool Clostridioides difficile (PCR) - Final 01/01/25 17:30 Sputum, Expectorated/Coughed Gram Stain - Final 01/01/25 17:30 Sputum, Expectorated/Coughed Respiratory Culture - Final Presumptive C albicans Imaging Radiology Impression Chest/Abdomen/Pelvis CT 01/04/25 09:31 IMPRESSION: Small bilateral pleural effusions with bibasilar atelectasis and/or slightly infiltrates slightly worse on the left side. Reading Location: [facility]
--- NOTE | 2025-01-04 16:20 | PN.HOSP_ITS ---
Reason for Visit Chief Complaint: Dyspnea, increased hypoxia/oxygen needs, URI sxs, subjective F/C. Objective Data Objective Data Vital Signs: Vital Signs Temp Pulse Resp BP Pulse Ox O2 Del Method O2 Flow Rate 99.0 F 73 16 105/60 95 High Flow 6 01/04/25 15:05 01/04/25 15:05 01/04/25 15:05 01/04/25 15:05 01/04/25 15:05 01/04/25 15:05 01/04/25 15:05 Oxygen Flow Rate (L/min) 6 Oxygen Delivery Method High Flow Weight: 223 lb 8.78 oz Body Mass Index (BMI) 31.1 Intake & Output: Intake and Output for Last 24 Hours 01/02/25 01/03/25 01/04/25 23:59 23:59 23:59 Intake Total 1025 / 1025 1070 / 1070 1030 / 1030 Output Total 1025 / 1025 550 / 750 550 / 550 Balance 0 / 0 520 / 320 480 / 480 Lab / Micro Data 01/04/25 05:50 01/04/25 05:50 Labs: Laboratory Results - last 24 hr 01/03/25 20:44: Hgb 7.0 L, Hct 21.4 L 01/03/25 21:45: POC Glucose 259 H 01/03/25 23:20: Blood Type AB POSITIVE, Antibody Screen NEGATIVE, Crossmatch See Detail 01/04/25 05:50: WBC 14.5 H, RBC 2.48 L, Hgb 7.7 L, Hct 24.2 L, MCV 97.6 H, MCH 31.0, MCHC 31.8 L, RDW Std Deviation 66.4 H, RDW Coeff of Rafael 18.8 H, Plt Count 348, MPV 10.3, Neut % (Auto) Not Reportable, Absolute Neuts (auto) 10.2 H, Absolute Lymphs (auto) 2.46, Total Counted 100, Neutrophils % (Manual) 69, Band Neutrophils % 1, Lymphocytes % (Manual) 17 L, Monocytes % (Manual) 10, Eosinophils % (Manual) 2, Metamyelocytes % 1, Atypical Lymphocytes RARE, Anisocytosis 1+, Sodium 144, Potassium 4.4, Chloride 110 H, Carbon Dioxide 24.4, Anion Gap 9, BUN 35 H, Creatinine 2.11 H, Estim Creat Clear Calc 36.68 L, Est GFR (MDRD) Non-Af 32 L, BUN/Creatinine Ratio 16.4, Glucose 152 H, Calcium 9.0, Vancomycin Trough 14.0 01/04/25 08:56: POC Glucose 125 H 01/04/25 13:09: POC Glucose 143 H Micro: Microbiology 12/30/24 12:12 Blood Culture (Wb) - Anticubital Right Blood Culture - Final No growth in 5 days. 12/30/24 12:27 Blood Culture (Wb) - Left Hand Blood Culture - Final No growth in 5 days. 01/04/25 11:16 Stool Clostridioides difficile (PCR) - Final 01/01/25 17:30 Sputum, Expectorated/Coughed Gram Stain - Final 01/01/25 17:30 Sputum, Expectorated/Coughed Respiratory Culture - Final Presumptive C albicans 12/31/24 09:40 Urine, Clean Catch Urine Culture - Final Yeast, not Elisha albicans 12/30/24 14:15 Mucosa - Nasopharyngeal SARS-CoV-2, Influenza & RSV (PCR) - Final 12/24/24 23:21 Blood Culture (Wb) - Anticubital Left Blood Culture - Final No growth in 5 days. 12/25/24 00:33 Blood Culture (Wb) - Right Forearm Blood Culture - Final No growth in 5 days. 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 resistant Staph. aureus 12/25/24 01:25 Urine, Clean Catch Legionella Antigen - Final 12/25/24 01:25 Urine, Clean Catch Streptococcus pneumoniae Antigen (M - Final 12/24/24 23:30 Mucosa - Nose SARS-CoV-2, Influenza & RSV (PCR) - Final Radiography Diagnostic Testing: Radiology Impression Chest/Abdomen/Pelvis CT 01/04/25 09:31 IMPRESSION: Small bilateral pleural effusions with bibasilar atelectasis and/or slightly infiltrates slightly worse on the left side. Reading Location: [id number] Physical Exam Narrative Seen and examined Patient at fever 101.1 at 2131 hrs. 12/03, yesterday patient also had repeat hemoglobin 7 g for which 1 unit of PRBC was transfused. Patient is still short of breath and oxygen requirement and is still high 6 to 7 L. Though subjectively, patient feels shortness of breath is better but was having chills with diaphoresis and rigors. Blood culture ordered Physical exam General: Alert, Oriented x3, Cooperative. BMI 30.8 kg/m? HEENT: Atraumatic, PERRLA, EOMI, Normocephalic. Oral: No Gingival or Mucosal Lesions/ Ulcerations Neck: Supple, No JVD, Negative Carotid Bruits Chest wall/Lungs: Air entry diminished in all lung luu. Mild crepitation better than yesterday Cardiovascular: Regular rate and rhythm, Normal S1,S2, systolic murmur Abdomen: Bowel Sounds Present, Soft, Non Tender, Non-Distended : No dysuria. No renal angle tenderness. No suprapubic tenderness. Extremities: Mild chronic edema, Capillary Refill Less than 3 Seconds Skin: No rashes, No breakdown Musculoskeletal: No Tenderness to Palpation of Joints or Extremities. ROM restricted Neurological: Cranial nerves II-XII grossly intact, DTR 2+/4. No acute focal neurological deficit. Psych/Mental Status: Flat affect. Assessment & Plan Assessment/Plan (1) Pneumonia: PLAN: Plan Patient is a 74-year-old male who presented to [facility] ED on 12/25/2024 with shortness of breath, URI symptoms and fever/chills. 1. Acute on Chronic Hypoxic and Hypercarbic Respiratory Failure secondary to bilateral MRSA pneumonia * Home O2 requirements verified by CM: 4 L at rest, 6 L with exertion, 3 L at night * Chest CTAshows bilateral patchy ground glass opacities/acinar densities predominantly right upper lobe. Bilateral pulmonary atelectatic changes with lower lobe bronchial wall thickening. PE ruled out. * Pneumonia workup shows respiratory panel and urinary antigens are negative. Triple PCR for SARS-CoV-2, flu and RSV are negative. Nasal MRSA screen positive. SCx positive for MRSA. * Patient empirically on IV vancomycin and pip/tazo during admission. Zosyn was changed to Unasyn with intention to narrow down the antibiotic on 12/26. With intermittent fever, ID changed Unasyn to Zosyn on 12/30 01/03: Patient is still having fever Tmax 100.2 Fahrenheit. On 6 L of oxygen 01/04: Patient had fever last night and in the morning was having chills, temperature 99.3 ?F. ID follow-up appreciated. Repeat CT was ordered which shows small bilateral effusion with bibasilar atelectasis and slightly worse infiltrates on the left side. Bumex dose increased to 1 mg IV twice daily for diuresis. On Vanco Zosyn and Diflucan. 2. MRSA pneumonia * continue vanc and pip/tazo. * Pt with ongoing symptoms. Will continue to monitor while inpatient. * ID following and ordered blood cultures on 12/30. Reviewed, still negative. Will continue antibiotics through tomorrow, appreciate further ID recs. 01/03: ID follow-up reviewed. Sputum culture negative so far. Urine culture Enterococcus but not in pathology range. Ongoing fever therefore vancomycin changed to IV Zosyn on 12/30. Sputum culture and urine culture with yeast, fluconazole added. 3. UTI ruled out: Urine culture growing GPC Enterococcus (25,000 and yeastlike organism) from 12/25. Repeat urine culture shows Elisha albicans 4. CAD: s/p LAD, RCA (2001) and L circumflex (2013), chronic HFrEF, chronic atrial fibrillation: Most recent echocardiogram 08/23/2024 with EF 25 to 30%, severe LV systolic dysfunction, no significant change from previous echocardiogram 05/2024 with EF at that time 25%. Continue Coreg, statin therapy. It seems patient is not on baby aspirin probably due to GI bleed. Baby aspirin started as patient is high risk for cardiac complications including TN and stroke. Patient not on MEDHAT or ARB. * Bumex 0.5 mg oral changed to IV and Jardiance resumed. * 01/02: Creatinine slightly rising as below. continue IV Bumex today but if creatinine continues to worsen tomorrow, recommend de-escalating to p.o. Bumex. 5. Chronic macrocytic anemia/Fe deficiency anemia complicated by history of significant recurrent GI bleeds w/ AVMs: Admission hemoglobin 9.2, MCV 97.6, baseline hemoglobin 8-10, stable, continue to trend. Continue PPI iron supplementation. Following Hematology, most recent visit noted 12/06/24. 01/03: H&H dropped to 7.0/22.4%. Platelet count normal. Monitor H&H in the evening today. Hold baby aspirin and heparin subcu. 6 Hx VTE, DVT and BL PE: Most recent event 07/2021 BL PE, prior DVT, history of significant GI bleeds status post IVC filter placement. 7. Diabetes mellitus type II: Will hold oral regimen, continue long-acting insulin regimen, will maintain on ADA diet, accu checks with ISS. 8. Rheumatoid arthritits: Previously on rituximab and prior also noted to have been on low dose prednisone, will clarify if currently ongoing but may have been discontinued given GI bleed issues. 9. Hypertension: Continue home Coreg, Spironolactone, Lasix with hold parameters as needed given low-normal BP in the ED, PRN hydralazine. 10. Hyperlipidemia: Continue home statin therapy. 11. History of non-Hodgkin's lymphoma: Considered in remission, s/p ABVD and radiation 2010, encourage continued outpatient follow-up with oncology as previously arranged or needed. 12 anxiety and depression: continue patient home escitalopram and mirtazapine regimen. 13 BPH with obstructive pathology: We will continue patient home finasteride and Flomax regimen. 14. Chronic Kidney Disease Stage IIIb: Admission BUN/Cr 50/2.04, GFR 33, baseline renal function more recently 1.7-2.7, seems to vacillate, most recently 12/06/2024 creatinine 2.70, repeat BMP in AM to elucidate current baseline. 12/26: Patient creatinine slightly better, 1.8 today. Baseline Bumex 0.5 mg IV resumed. 01/02: Creatinine 2.15, slightly up from previous days at 1.8-1.9. 01/03: BUN/creatinine 34/2.05. No significant change. 15. GERD with history of significant recurrent GI bleeds with AVMs: Will continue patient on PPI, as noted above #4. DVT prophylaxis: Heparin cautiously. Code status: DNRCCA, DNI Disposition: to SNF to [facility] when medically stable. Says patient's pre-CERT labs in 1 days therefore when patient is medically ready then needs to apply pre- CERT. Discussed with the case planner Total time of the visit including total time spent in counseling or coordination of care, (more than 50% of the total time, spent in obtaining medical information from nurses and other ancillary care providers ,explaining to the patient about labs, imaging, diagnosis and management of active complex medical conditions), , review of labs and imaging is 35 minutes. Microbiology Past 72 Hours 01/01/25 17:30 Sputum, Expectorated/Coughed Gram Stain - Final 01/01/25 17:30 Sputum, Expectorated/Coughed Respiratory Culture - Preliminary Presumptive C albicans 12/31/24 09:40 Urine, Clean Catch Urine Culture - Final Yeast, not Elisha albicans 12/30/24 12:27 Blood Culture (Wb) - Left Hand Blood Culture - Preliminary No growth in 48 hours. 12/30/24 12:12 Blood Culture (Wb) - Anticubital Right Blood Culture - Preliminary No growth in 48 hours. Laboratory Results 01/02/25 16:01: POC Glucose 234 H 01/02/25 22:19: POC Glucose 150 H 01/03/25 05:31: WBC 13.1 H, RBC 2.23 L, Hgb 7.0 L, Hct 22.4 L, MCV 100.4 H, MCH 31.4, MCHC 31.3 L, RDW Std Deviation 64.4 H, RDW Coeff of Rafael 17.5 H, Plt Count 365, MPV 11.1, Sodium 140, Potassium 3.9, Chloride 106, Carbon Dioxide 22.9, Anion Gap 11, BUN 34 H, Creatinine 2.05 H, Estim Creat Clear Calc 37.53 L, Est GFR (MDRD) Non-Af 33 L, BUN/Creatinine Ratio 16.4, Glucose 92, Calcium 8.7 01/03/25 07:30: POC Glucose 90 01/03/25 10:56: POC Glucose 127 H Clinical Impression(s) from Imaging Studies Chest X-Ray 12/24/24 23:36 IMPRESSION: Minimal bilateral basilar atelectatic pulmonary changes. Reading Location: [place] [id number] Chest CTA 12/25/24 00:05 IMPRESSION: No evidence of pulmonary arterial thromboembolism. Cardiomegaly. Bilateral pulmonary patchy ground glass opacities and acinar densities, most evidently involving the right upper lung lobe, possibly infectious. Bilateral pulmonary atelectatic changes with predominantly lower lobar bronchial wall thickening No obvious pulmonary masses or consolidations. Reading [facility] Chest X-Ray 12/27/24 06:37 IMPRESSION: There is mild cardiomegaly. There is blunting of the costophrenic angle on the right and left consistent with trace effusions. Reading Location[facility] Chest X-Ray 12/30/24 11:05 IMPRESSION: Stable mild cardiomegaly and mild pulmonary vascular congestion. Reading Location[facility] Chest/Abdomen/Pelvis CT 01/04/25 09:31 IMPRESSION: Small bilateral pleural effusions with bibasilar atelectasis and/or slightly infiltrates slightly worse on the left side. Reading Location: [id number] Charges/Coding Addendum Addendum: Total time of the visit including total time spent in counseling or coordination of care, (more than 50% of the total time, spent in obtaining medical information from nurses and other ancillary care providers ,explaining to the patient about labs, imaging, diagnosis and management of active complex medical conditions), continued fever, discussion with ID, CT chest, review of labs and imaging is 35 minutes. Visit Charges Inpatient E&M: 62160 Subs Hosp L3
[2025-01-04] MEDS: Insulin Glargine-YFGN 100 UNIT/ML Pen 15 UNIT SC (21:46)
[2025-01-04] MEDS: 0.9% Saline Lock 10 ML Syringe IV (21:47)
[2025-01-05] VITALS (8 sets, daily range): BP systolic 103–116; BP diastolic 52–60; PULSE 68–82; RESP 16–26; TEMP 36.6–37.7; O2SAT 91–97; BMI 31.1
[2025-01-05 05:49] LABS: Hematocrit 23.4 % (40-54); Hemoglobin 7.6 g/dL (13.0-16.5); Mean Corp Hgb Conc 32.5 g/dL (32-36); Mean Corpuscular Volume 96.3 fL (80-94); Mean Platelet Vol. 10.5 fl (6.2-12.0); POSITIVE COUNT YES; POSITIVE DIFFERENTIAL YES; POSITIVE MORPHOLOGY YES; Platelet Count 347 K/mm3 (150-450); RBC Distribution Width CV 18.9 % (11.6-14.6); RBC Distribution Width SD 66.3 fl (35.1-43.9); Red Blood Count 2.43 M/mm3 (4.6-6.2); White Blood Count 15.2 K/mm3 (4.4-11.0)
[2025-01-05] MEDS: Piperacil/Tazobactam 3.375 GM in 0.9% Normal Saline (50mL MB+) 50 ML IV ×2 (05:56→13:05)
[2025-01-05 06:48] LABS: Anion Gap 11 (5-15); BUN 31 mg/dL (4-19); BUN/Creat Ratio 15.7 RATIO (10-20); Calcium,Total 8.8 mg/dL (7.6-11.0); Carbon Dioxide 23.2 mmol/L (21.0-32.0); Chloride 108 mmol/L (98-108); Estimated Creatinine Clearance 39.29 ml/min (50-250); Glucose 97 mg/dL (70-99); Potassium 4.0 mmol/L (3.3-5.1)
[2025-01-05] MEDS: Budesonide Respules 0.5 MG/2 ML AMPUL.NEB. INHALATION ×2 (06:55→15:38)
[2025-01-05 06:59] LABS: Neutrophil-Segmented 70 % (47-70); Nucleated Red Bld Cells,Manual 1 % (0-5); Total Cells Counted 100 (MANUAL DIFF)
[2025-01-05 07:09] LABS: Reactive Lymphocyte 1+; Toxic Granulation 3+
[2025-01-05 07:10] LABS: Burr Cells RARE; Polychromasia RARE
[2025-01-05 07:11] LABS: Anisocytosis RARE; Differential Comment SCANNED
[2025-01-05 07:12] LABS: Differential Indicated MANUAL DIFF
--- NOTE | 2025-01-05 08:17 | VDLE_ITS ---
Reason For Study Reason For Study: Shortness of breath RIGHT LEFT GSV is normal. GSV is normal. CFV is compressible, spontaneous, phasic, competent CFV is compressible, spontaneous, phasic, competent, and demonstrates normal augmentation. and demonstrates normal augmentation. FV is compressible, spontaneous, phasic, competent FV is compressible, spontaneous, phasic, competent and demonstrates normal augmentation. and demonstrates normal augmentation. POP V is compressible, spontaneous, phasic, competent POP V is compressible, spontaneous, phasic, competent and demonstrates normal augmentation. and demonstrates normal augmentation. T/P Trunk is compressible. T/P Trunk is compressible. PTV is compressible. PTV is compressible. RT PerV is compressible. LT PerV is compressible. Procedure This is a venous duplex using B-mode, color flow and spectral Doppler. Exam performed portable in patient room. A preliminary report was called and/or faxed to Charge Nurse, PCU. VL/Venous Duplex US - Sharad Extrem Interpretation Summary Deep veins of the bilateral lower extremities are patent and compressible segme ntally. There is no evidence of bilateral lower extremity deep vein thrombosis. The bilateral great saphenous veins appea r patent and compressible segmentally. Ordering Physician: Wilberto Villafuerte Referring Physician: Donna Will M.D. Performed By: Lily Douglas RVT
[2025-01-05] MEDS: guaiFENesin/D-Methorphan TAB.SR.12H 2 TABLET PO ×2 (09:10→22:10)
--- NOTE | 2025-01-05 09:26 | PN.HOSP_ITS ---
Reason for Visit Chief Complaint: Dyspnea, increased hypoxia/oxygen needs, URI sxs, subjective F/C. Objective Data Objective Data Vital Signs: Vital Signs Temp Pulse Resp BP Pulse Ox O2 Del Method O2 Flow Rate 99.8 F H 78 26 H 116/60 91 Nasal Cannula 6 01/05/25 08:57 01/05/25 08:57 01/05/25 08:57 01/05/25 08:57 01/05/25 08:57 01/05/25 08:57 01/05/25 08:57 Oxygen Flow Rate (L/min) 6 Oxygen Delivery Method Nasal Cannula Weight: 223 lb 5.252 oz Body Mass Index (BMI) 31.1 Intake & Output: Intake and Output for Last 24 Hours 01/03/25 01/04/25 01/05/25 23:59 23:59 23:59 Intake Total 1070 / 1070 1080 / 1430 400 / 400 Output Total 550 / 750 1400 / 1400 350 / 350 Balance 520 / 320 -320 / 30 50 / 50 Lab / Micro Data 01/05/25 05:11 01/05/25 05:11 Labs: Laboratory Results - last 24 hr 01/04/25 08:56: POC Glucose 125 H 01/04/25 13:09: POC Glucose 143 H 01/04/25 17:21: POC Glucose 128 H 01/04/25 21:45: POC Glucose 124 H 01/05/25 05:11: WBC 15.2 H, RBC 2.43 L, Hgb 7.6 L, Hct 23.4 L, MCV 96.3 H, MCH 31.3, MCHC 32.5, RDW Std Deviation 66.3 H, RDW Coeff of Rafael 18.9 H, Plt Count 347, MPV 10.5, Neut % (Auto) Not Reportable, Absolute Neuts (auto) 10.7 H, Absolute Lymphs (auto) 2.44, Total Counted 100, Neutrophils % (Manual) 70, L ymphocytes % (Manual) 16 L, Monocytes % (Manual) 8, Eosinophils % (Manual) 3, M etamyelocytes % 2 H, Myelocytes % 1 H, Nucleated RBCs/100 WBC 1, Differential Comment SCANNED, Atypical Lymphocytes RARE, Reactive Lymphocytes 1+, Toxic Granulation 3+, Platelet Estimate ADEQUATE, Plt Morphology Comment GIANT, Polychromasia RARE, Anisocytosis RARE, Ovalocytes RARE, [place] Cells RARE, Sodium 143, Potassium 4.0, Chloride 108, Carbon Dioxide 23.2, Anion Gap 11, BUN 31 H, C reatinine 1.97 H, Estim Creat Clear Calc 39.29 L, Est GFR (MDRD) Non-Af 35 L, BUN/Creatinine Ratio 15.7, Glucose 97, Calcium 8.8 Micro: Microbiology 12/30/24 12:12 Blood Culture (Wb) - Anticubital Right Blood Culture - Final No growth in 5 days. 12/30/24 12:27 Blood Culture (Wb) - Left Hand Blood Culture - Final No growth in 5 days. 01/04/25 11:16 Stool Clostridioides difficile (PCR) - Final 01/01/25 17:30 Sputum, Expectorated/Coughed Gram Stain - Final 01/01/25 17:30 Sputum, Expectorated/Coughed Respiratory Culture - Final Presumptive C albicans 12/31/24 09:40 Urine, Clean Catch Urine Culture - Final Yeast, not Elisha albicans 12/30/24 14:15 Mucosa - Nasopharyngeal SARS-CoV-2, Influenza & RSV (PCR) - Final 12/24/24 23:21 Blood Culture (Wb) - Anticubital Left Blood Culture - Final No growth in 5 days. 12/25/24 00:33 Blood Culture (Wb) - Right Forearm Blood Culture - Final No growth in 5 days. 12/25/24 01:25 Urine, Clean Catch Urine Culture - Final Enterococcus faecalis Yeast, not Elisha albicans GNR lactose director mission 12/25/24 20:10 Sputum, Expectorated/Coughed Gram Stain - Final 12/25/24 20:10 Sputum, Expectorated/Coughed Respiratory Culture - Final Presumptive C albicans 12/25/24 04:56 Mucosa - Nasopharyngeal Respiratory Panel (PCR) - Final 12/25/24 04:00 Nasal Secretion MRSA (PCR) - Final Meth. resistant Staph. aureus 12/25/24 01:25 Urine, Clean Catch Legionella Antigen - Final 12/25/24 01:25 Urine, Clean Catch Streptococcus pneumoniae Antigen (M - Final 12/24/24 23:30 Mucosa - Nose SARS-CoV-2, Influenza & RSV (PCR) - Final Radiography Diagnostic Testing: Radiology Impression Chest/Abdomen/Pelvis CT 01/04/25 09:31 IMPRESSION: Small bilateral pleural effusions with bibasilar atelectasis and/or slightly infiltrates slightly worse on the left side. Reading Location: [id number] Physical Exam Narrative Seen and examined Patient was feeling cold shivering and having low-grade fever intermittently. Covered with warm blanket. C. difficile test came negative. CT chest was done yesterday. No acute change in shortness of breath. Physical exam General: Alert, Oriented x3, Cooperative. BMI 30.8 kg/m? HEENT: Atraumatic, PERRLA, EOMI, Normocephalic. Oral: No Gingival or Mucosal Lesions/ Ulcerations Neck: Supple, No JVD, Negative Carotid Bruits Chest wall/Lungs: Air entry diminished in all lung luu. Mild crepitation. Cardiovascular: Regular rate and rhythm, Normal S1,S2, systolic murmur Abdomen: Bowel Sounds Present, Soft, Non Tender, Non-Distended : No dysuria. No renal angle tenderness. No suprapubic tenderness. Extremities: Mild chronic edema, Capillary Refill Less than 3 Seconds Skin: No rashes, No breakdown Musculoskeletal: No Tenderness to Palpation of Joints or Extremities. ROM restricted Neurological: Cranial nerves II-XII grossly intact, DTR 2+/4. No acute focal neurological deficit. Psych/Mental Status: Flat affect. Assessment & Plan Assessment/Plan (1) Pneumonia: PLAN: Plan Patient is a 74-year-old male who presented to [facility] ED on 12/25/2024 with shortness of breath, URI symptoms and fever/chills. 1. Acute on Chronic Hypoxic and Hypercarbic Respiratory Failure secondary to bilateral MRSA pneumonia * Home O2 requirements verified by CM: 4 L at rest, 6 L with exertion, 3 L at night * Chest CTAshows bilateral patchy ground glass opacities/acinar densities predominantly right upper lobe. Bilateral pulmonary atelectatic changes with lower lobe bronchial wall thickening. PE ruled out. * Pneumonia workup shows respiratory panel and urinary antigens are negative. Triple PCR for SARS-CoV-2, flu and RSV are negative. Nasal MRSA screen positive. SCx positive for MRSA. * Patient empirically on IV vancomycin and pip/tazo during admission. Zosyn was changed to Unasyn with intention to narrow down the antibiotic on 12/26. With intermittent fever, ID changed Unasyn to Zosyn on 12/30 01/03: Patient is still having fever Tmax 100.2 Fahrenheit. On 6 L of oxygen 01/04: Patient had fever last night and in the morning was having chills, temperature 99.3 ?F. ID follow-up appreciated. Repeat CT was ordered which shows small bilateral effusion with bibasilar atelectasis and slightly worse infiltrates on the left side. Bumex dose increased to 1 mg IV twice daily for diuresis. On Vanco Zosyn and Diflucan. 01/05: CT reviewed and shows small bilateral pleural effusion but no acute change which can be attributed to fever. C. difficile test is negative. Respiratory panel ordered. On 6 L of oxygen. 2. MRSA pneumonia * continue vanc and pip/tazo. * Pt with ongoing symptoms. Will continue to monitor while inpatient. * ID following and ordered blood cultures on 12/30. Reviewed, still negative. Will continue antibiotics through tomorrow, appreciate further ID recs. 01/03: ID follow-up reviewed. Sputum culture negative so far. Urine culture Enterococcus but not in pathology range. Ongoing fever therefore vancomycin changed to IV Zosyn on 12/30. Sputum culture and urine culture with yeast, fluconazole added. 3. UTI ruled out: Urine culture growing GPC Enterococcus (25,000 and yeastlike organism) from 12/25. Repeat urine culture shows Elisha albicans 4. CAD: s/p LAD, RCA (2001) and L circumflex (2013), chronic HFrEF, chronic atrial fibrillation: Most recent echocardiogram 08/23/2024 with EF 25 to 30%, severe LV systolic dysfunction, no significant change from previous echocardiogram 05/2024 with EF at that time 25%. Continue Coreg, statin therapy. It seems patient is not on baby aspirin probably due to GI bleed. Baby aspirin started as patient is high risk for cardiac complications including OR and stroke. Patient not on MEDHAT or ARB. * Bumex 0.5 mg oral changed to IV and Jardiance resumed. * 01/02: Creatinine slightly rising as below. continue IV Bumex today but if creatinine continues to worsen tomorrow, recommend de-escalating to p.o. Bumex. 5. Chronic macrocytic anemia/Fe deficiency anemia complicated by history of significant recurrent GI bleeds w/ AVMs: Admission hemoglobin 9.2, MCV 97.6, baseline hemoglobin 8-10, stable, continue to trend. Continue PPI iron supplementation. Following Hematology, most recent visit noted 12/06/24. 01/03: H&H dropped to 7.0/22.4%. Platelet count normal. Monitor H&H in the evening today. Hold baby aspirin and heparin subcu. 01/05: Hemoglobin is still low about 7.6 g%. Platelet count normal. 6 Hx VTE, DVT and BL PE: Most recent event 07/2021 BL PE, prior DVT, history of significant GI bleeds status post IVC filter placement. 7. Diabetes mellitus type II: Will hold oral regimen, continue long-acting insulin regimen, will maintain on ADA diet, accu checks with ISS. 8. Rheumatoid arthritits: Previously on rituximab and prior also noted to have been on low dose prednisone, will clarify if currently ongoing but may have been discontinued given GI bleed issues. 9. Hypertension: Continue home Coreg, Spironolactone, Lasix with hold parameters as needed given low-normal BP in the ED, PRN hydralazine. 10. Hyperlipidemia: Continue home statin therapy. 11. History of non-Hodgkin's lymphoma: Considered in remission, s/p ABVD and radiation 2010, encourage continued outpatient follow-up with oncology as previously arranged or needed. 12 anxiety and depression: continue patient home escitalopram and mirtazapine regimen. 13 BPH with obstructive pathology: We will continue patient home finasteride and Flomax regimen. 14. Chronic Kidney Disease Stage IIIb: Admission BUN/Cr 50/2.04, GFR 33, baseline renal function more recently 1.7-2.7, seems to vacillate, most recently 12/06/2024 creatinine 2.70, repeat BMP in AM to elucidate current baseline. 12/26: Patient creatinine slightly better, 1.8 today. Baseline Bumex 0.5 mg IV resumed. 01/02: Creatinine 2.15, slightly up from previous days at 1.8-1.9. 01/03: BUN/creatinine 34/2.05. No significant change. 15. GERD with history of significant recurrent GI bleeds with AVMs: Will continue patient on PPI, as noted above #4. DVT prophylaxis: Heparin cautiously. 01/05: Heparin was discontinued because of severe anemia. Bilateral SCDs Code status: DNRCCA, DNI Disposition: to SNF to [facility] when medically stable. Says patient's pre-CERT labs in 1 days therefore when patient is medically ready then needs to apply pre- CERT. Discussed with the protective services case worker Total time of the visit including total time spent in counseling or coordination of care, (more than 50% of the total time, spent in obtaining medical information from nurses and other ancillary care providers ,explaining to the patient about labs, imaging, diagnosis and management of active complex medical conditions), , review of labs and imaging is 35 minutes. Microbiology Past 72 Hours 12/30/24 12:12 Blood Culture (Wb) - Anticubital Right Blood Culture - Final No growth in 5 days. 12/30/24 12:27 Blood Culture (Wb) - Left Hand Blood Culture - Final No growth in 5 days. 01/04/25 11:16 Stool Clostridioides difficile (PCR) - Final 01/01/25 17:30 Sputum, Expectorated/Coughed Gram Stain - Final 01/01/25 17:30 Sputum, Expectorated/Coughed Respiratory Culture - Final Presumptive C albicans 12/31/24 09:40 Urine, Clean Catch Urine Culture - Final Yeast, not Elisha albicans Laboratory Results 01/04/25 08:56: POC Glucose 125 H 01/04/25 13:09: POC Glucose 143 H 01/04/25 17:21: POC Glucose 128 H 01/04/25 21:45: POC Glucose 124 H 01/05/25 05:11: WBC 15.2 H, RBC 2.43 L, Hgb 7.6 L, Hct 23.4 L, MCV 96.3 H, MCH 31.3, MCHC 32.5, RDW Std Deviation 66.3 H, RDW Coeff of Rafael 18.9 H, Plt Count 347, MPV 10.5, Neut % (Auto) Not Reportable, Absolute Neuts (auto) 10.7 H, Absolute Lymphs (auto) 2.44, Total Counted 100, Neutrophils % (Manual) 70, L ymphocytes % (Manual) 16 L, Monocytes % (Manual) 8, Eosinophils % (Manual) 3, M etamyelocytes % 2 H, Myelocytes % 1 H, Nucleated RBCs/100 WBC 1, Differential Comment SCANNED, Atypical Lymphocytes RARE, Reactive Lymphocytes 1+, Toxic Granulation 3+, Platelet Estimate ADEQUATE, Plt Morphology Comment GIANT, Polychromasia RARE, Anisocytosis RARE, Ovalocytes RARE, [place] Cells RARE, Sodium 143, Potassium 4.0, Chloride 108, Carbon Dioxide 23.2, Anion Gap 11, BUN 31 H, C reatinine 1.97 H, Estim Creat Clear Calc 39.29 L, Est GFR (MDRD) Non-Af 35 L, BUN/Creatinine Ratio 15.7, Glucose 97, Calcium 8.8 Clinical Impression(s) from Imaging Studies Chest X-Ray 12/24/24 23:36 IMPRESSION: Minimal bilateral basilar atelectatic pulmonary changes. Reading Location: [place] [id number] Chest CTA 12/25/24 00:05 IMPRESSION: No evidence of pulmonary arterial thromboembolism. Cardiomegaly. Bilateral pulmonary patchy ground glass opacities and acinar densities, most evidently involving the right upper lung lobe, possibly infectious. Bilateral pulmonary atelectatic changes with predominantly lower lobar bronchial wall thickening No obvious pulmonary masses or consolidations. Reading Location: [place] [address] Chest X-Ray 12/27/24 06:37 IMPRESSION: There is mild cardiomegaly. There is blunting of the costophrenic angle on the right and left consistent with trace effusions. Reading [facility] Chest X-Ray 12/30/24 11:05 IMPRESSION: Stable mild cardiomegaly and mild pulmonary vascular congestion. Reading Location[facility] Chest/Abdomen/Pelvis CT 01/04/25 09:31 IMPRESSION: Small bilateral pleural effusions with bibasilar atelectasis and/or slightly infiltrates slightly worse on the left side. Reading Location: [id number] Charges/Coding Visit Charges Inpatient E&M: 07372 Subs Hosp L3
--- NOTE | 2025-01-05 10:35 | CASEMGMT ---
Discharge Planning Updates sent via [facility] to [facility]. Batool Zeng DC Planning Asst.
--- NOTE | 2025-01-05 11:29 | PN.RENAL_ITS ---
Subjective Subjective Patient resting in bed. No complaints. No overnight events. Objective Data Objective Data Vital Signs: Vital Signs Temp Pulse Resp BP Pulse Ox O2 Del Method O2 Flow Rate 99.0 F 78 18 116/60 91 Nasal Cannula 6 01/05/25 10:00 01/05/25 08:57 01/05/25 10:00 01/05/25 08:57 01/05/25 08:57 01/05/25 10:00 01/05/25 10:00 Oxygen Flow Rate (L/min) 6 Oxygen Delivery Method Nasal Cannula Weight: 101.3 kg Body Mass Index (BMI) 31.1 Intake & Output: Intake and Output for Last 24 Hours 01/03/25 01/04/25 01/05/25 23:59 23:59 23:59 Intake Total 1070 / 1070 1080 / 1430 450 / 450 Output Total 550 / 750 1400 / 1400 350 / 350 Balance 520 / 320 -320 / 30 100 / 100 Lab / Micro Data 01/05/25 05:11 01/05/25 05:11 Labs: Laboratory Results - last 24 hr 01/04/25 13:09: POC Glucose 143 H 01/04/25 17:21: POC Glucose 128 H 01/04/25 21:45: POC Glucose 124 H 01/05/25 05:11: WBC 15.2 H, RBC 2.43 L, Hgb 7.6 L, Hct 23.4 L, MCV 96.3 H, MCH 31.3, MCHC 32.5, RDW Std Deviation 66.3 H, RDW Coeff of Rafael 18.9 H, Plt Count 347, MPV 10.5, Neut % (Auto) Not Reportable, Absolute Neuts (auto) 10.7 H, Absolute Lymphs (auto) 2.44, Total Counted 100, Neutrophils % (Manual) 70, L ymphocytes % (Manual) 16 L, Monocytes % (Manual) 8, Eosinophils % (Manual) 3, M etamyelocytes % 2 H, Myelocytes % 1 H, Nucleated RBCs/100 WBC 1, Differential Comment SCANNED, Atypical Lymphocytes RARE, Reactive Lymphocytes 1+, Toxic Granulation 3+, Platelet Estimate ADEQUATE, Plt Morphology Comment GIANT, Polychromasia RARE, Anisocytosis RARE, Ovalocytes RARE, [place] Cells RARE, Sodium 143, Potassium 4.0, Chloride 108, Carbon Dioxide 23.2, Anion Gap 11, BUN 31 H, C reatinine 1.97 H, Estim Creat Clear Calc 39.29 L, Est GFR (MDRD) Non-Af 35 L, BUN/Creatinine Ratio 15.7, Glucose 97, Calcium 8.8 01/05/25 09:57: POC Glucose 82 Micro: Microbiology 12/30/24 12:12 Blood Culture (Wb) - Anticubital Right Blood Culture - Final No growth in 5 days. 12/30/24 12:27 Blood Culture (Wb) - Left Hand Blood Culture - Final No growth in 5 days. 01/04/25 11:16 Stool Clostridioides difficile (PCR) - Final 01/01/25 17:30 Sputum, Expectorated/Coughed Gram Stain - Final 01/01/25 17:30 Sputum, Expectorated/Coughed Respiratory Culture - Final Presumptive C albicans 12/31/24 09:40 Urine, Clean Catch Urine Culture - Final Yeast, not Elisha albicans 12/30/24 14:15 Mucosa - Nasopharyngeal SARS-CoV-2, Influenza & RSV (PCR) - Final 12/24/24 23:21 Blood Culture (Wb) - Anticubital Left Blood Culture - Final No growth in 5 days. 12/25/24 00:33 Blood Culture (Wb) - Right Forearm Blood Culture - Final No growth in 5 days. 12/25/24 01:25 Urine, Clean Catch Urine Culture - Final Enterococcus faecalis Yeast, not Elisha albicans GNR lactose prepared foods production team member 12/25/24 20:10 Sputum, Expectorated/Coughed Gram Stain - Final 12/25/24 20:10 Sputum, Expectorated/Coughed Respiratory Culture - Final Presumptive C albicans 12/25/24 04:56 Mucosa - Nasopharyngeal Respiratory Panel (PCR) - Final 12/25/24 04:00 Nasal Secretion MRSA (PCR) - Final Meth. resistant Staph. aureus 12/25/24 01:25 Urine, Clean Catch Legionella Antigen - Final 12/25/24 01:25 Urine, Clean Catch Streptococcus pneumoniae Antigen (M - Final 12/24/24 23:30 Mucosa - Nose SARS-CoV-2, Influenza & RSV (PCR) - Final Radiography Diagnostic Testing: Radiology Impression Chest/Abdomen/Pelvis CT 01/04/25 09:31 IMPRESSION: Small bilateral pleural effusions with bibasilar atelectasis and/or slightly infiltrates slightly worse on the left side. Reading Location: [id number] Physical Exam Narrative Alert, awake & oriented x 3 no obvious distress s1s2 no murmurs lungs clear anteriorly. No wheezes, rhonchi or rales noted. On O2 nasal cannula 6 L abdomen soft No edema Assessment & Plan Assessment/Plan (1) Chronic kidney disease, stage 3b: PLAN: In July of this year, creatinine was close to 1.4-1.5 range. Over the last 2 to 3 months, creatinine has been between 1.8-2.0. Urine analysis appears to be fairly concentrated, 1+ protein, glycosuria from SGLT2 inhibitor, some cells. CT abdomen without any hydronephrosis. He says he was struggling with lower extremity edema, has been on diuretics as outpatient. Presented with shortness of breath, suspected to be from pneumonia, likely some component of fluid overload as well. CT chest reviewed, possible edema pattern. Okay to continue IV Lasix for now. Change in creatinine is likely hemodynamic shifts from ongoing diuresis. Will continue to follow. 01/05/2025: Overall renal function remains stable. Creatinine 2.1 yesterday, today serum creatinine 1.97. On Bumex 1 mg IV twice daily, Aldactone 25 mg daily. Per cumulative I&O net negative at least [address] noncontrast chest, abdomen and pelvis showed small bilateral pleural effusions, infiltrates slightly worse on left side. On IV antibiotics. Will continue with diuretics as ordered. Labs ordered for morning. Assessment and plan reviewed with Dr. Lopez.
--- NOTE | 2025-01-05 13:47 | PCM.PN.ID ---
Physical Exam Narrative Still chills, not feeling well. Some dyspnea. Const alert and no apparent distress General Appearance: cooperative Resp Auscultation: diminished lung sounds Cardio regular rate and regular rhythm GI soft to palpation, non-tender and non-distended Skin no rashes or lesions noted ID ID: Route of nutrition/ use of supplements: [] Nutritional Intake: [] IV Site: [] Ball Catheter: [] Assessment & Plan Assessment/Plan (1) UTI (urinary tract infection): (2) Pneumonia: PLAN: On admit, Ucx with small growth enterococcus. Sputum cx neg so far. Had ongoing fever, so changed vanc/unasyn to vanc/zosyn 12/30. No further fever. Sputum and urine with yeast, 01/03/25 added fluc. Still with fever, will check resp pcr panel and doppler BLE. Will change abx to doxy/sveta/fluc. Will follow (3) Acute and chronic respiratory failure with hypercapnia:
[2025-01-05] MEDS: Insulin Glargine-YFGN 100 UNIT/ML Pen 15 UNIT SC (22:05)
[2025-01-05] MEDS: 0.9% Saline Lock 10 ML Syringe IV (22:12)
[2025-01-05] MEDS: 0.9% Normal Saline (250mL Bag) 250 ML 15 ML IV (22:27)
[2025-01-06] VITALS (8 sets, daily range): BP systolic 90–141; BP diastolic 60–69; PULSE 69–96; RESP 16–18; TEMP 36.8–38.6; O2SAT 90–96; BMI 30.7
[2025-01-06 05:37] LABS: Anion Gap 12 (5-15); BUN 27 mg/dL (4-19); BUN/Creat Ratio 14.3 RATIO (10-20); Calcium,Total 8.7 mg/dL (7.6-11.0); Carbon Dioxide 21.3 mmol/L (21.0-32.0); Chloride 106 mmol/L (98-108); Estimated Creatinine Clearance 40.90 ml/min (50-250); Glucose 105 mg/dL (70-99); Potassium 3.9 mmol/L (3.3-5.1)
[2025-01-06] MEDS: Budesonide Respules 0.5 MG/2 ML AMPUL.NEB. INHALATION (07:02)
[2025-01-06] MEDS: guaiFENesin/D-Methorphan TAB.SR.12H 2 TABLET PO ×2 (08:41→20:28)
--- NOTE | 2025-01-06 09:49 | PCM.PN.ID ---
Physical Exam Narrative Feeling better, no fever, mild dyspnea/cough. No n/v/d. Const alert and no apparent distress General Appearance: cooperative Resp clear to auscultation bilaterally Auscultation: diminished lung sounds Cardio regular rate and regular rhythm GI soft to palpation, non-tender and non-distended Skin no rashes or lesions noted ID ID: Route of nutrition/ use of supplements: [] Nutritional Intake: [] IV Site: [] Ball Catheter: [] Assessment & Plan Assessment/Plan (1) UTI (urinary tract infection): (2) Pneumonia: PLAN: On admit, Ucx with small growth enterococcus. Sputum cx neg so far. Had ongoing fever, so changed vanc/unasyn to vanc/zosyn 12/30. No further fever. Sputum and urine with yeast, 01/03/25 added fluc. Still with fever, 01/04 had neg resp pcr panel and ordered doppler BLE. 01/05 changed abx to doxy/sveta/fluc. No fever last night, feeling better. Will follow (3) Acute and chronic respiratory failure with hypercapnia:
--- NOTE | 2025-01-06 11:07 | PN.RENAL_ITS ---
Subjective Subjective Patient resting in bed. States feeling better today. States breathing is better. States trying to eat better. Objective Data Objective Data Vital Signs: Vital Signs Temp Pulse Resp BP Pulse Ox O2 Del Method O2 Flow Rate 99.8 F H 72 16 90/69 96 Nasal Cannula 5 01/06/25 09:00 01/06/25 09:00 01/06/25 09:00 01/06/25 09:00 01/06/25 09:00 01/06/25 09:29 01/06/25 09:29 Oxygen Flow Rate (L/min) 5 Oxygen Delivery Method Nasal Cannula Weight: 100 kg Body Mass Index (BMI) 30.7 Intake & Output: Intake and Output for Last 24 Hours 01/04/25 01/05/25 01/06/25 23:59 23:59 23:59 Intake Total 1080 / 1430 529.08 / 529.08 240.5 / 240.5 Output Total 1400 / 1400 1200 / 1375 325 / 325 Balance -320 / 30 -670.92 / -845.92 -84.5 / -84.5 Lab / Micro Data 01/05/25 05:11 01/06/25 04:06 Labs: Laboratory Results - last 24 hr 01/05/25 12:58: POC Glucose 146 H 01/05/25 17:56: POC Glucose 105 01/05/25 22:04: POC Glucose 178 H 01/06/25 04:06: Sodium 139, Potassium 3.9, Chloride 106, Carbon Dioxide 21.3, Anion Gap 12, BUN 27 H, Creatinine 1.88 H, Estim Creat Clear Calc 40.90 L, Est GFR (MDRD) Non-Af 37 L, BUN/Creatinine Ratio 14.3, Glucose 105 H, Calcium 8.7 Micro: Microbiology 01/04/25 09:32 Blood Culture (Wb) - Right Hand Blood Culture - Preliminary No growth in 48 hours. 01/05/25 19:00 Urine, Clean Catch Legionella Antigen - Final 01/05/25 09:33 Mucosa - Nasopharyngeal Respiratory Panel (PCR) - Final 12/30/24 12:12 Blood Culture (Wb) - Anticubital Right Blood Culture - Final No growth in 5 days. 12/30/24 12:27 Blood Culture (Wb) - Left Hand Blood Culture - Final No growth in 5 days. 01/04/25 11:16 Stool Clostridioides difficile (PCR) - Final 01/01/25 17:30 Sputum, Expectorated/Coughed Gram Stain - Final 01/01/25 17:30 Sputum, Expectorated/Coughed Respiratory Culture - Final Presumptive C albicans 12/31/24 09:40 Urine, Clean Catch Urine Culture - Final Yeast, not Elisha albicans 12/30/24 14:15 Mucosa - Nasopharyngeal SARS-CoV-2, Influenza & RSV (PCR) - Final 12/24/24 23:21 Blood Culture (Wb) - Anticubital Left Blood Culture - Final No growth in 5 days. 12/25/24 00:33 Blood Culture (Wb) - Right Forearm Blood Culture - Final No growth in 5 days. 12/25/24 01:25 Urine, Clean Catch Urine Culture - Final Enterococcus faecalis Yeast, not Elisha albicans GNR lactose information technology coordinator 12/25/24 20:10 Sputum, Expectorated/Coughed Gram Stain - Final 12/25/24 20:10 Sputum, Expectorated/Coughed Respiratory Culture - Final Presumptive C albicans 12/25/24 04:56 Mucosa - Nasopharyngeal Respiratory Panel (PCR) - Final 12/25/24 04:00 Nasal Secretion MRSA (PCR) - Final Meth. resistant Staph. aureus 12/25/24 01:25 Urine, Clean Catch Legionella Antigen - Final 12/25/24 01:25 Urine, Clean Catch Streptococcus pneumoniae Antigen (M - Final 12/24/24 23:30 Mucosa - Nose SARS-CoV-2, Influenza & RSV (PCR) - Final Physical Exam Narrative Alert, awake & oriented x 3 no obvious distress s1s2 no murmurs lungs clear anteriorly, diminished breath sounds posterior bases. No wheezes, rhonchi or rales noted. On O2 nasal cannula 5 L abdomen soft No edema Assessment & Plan Assessment/Plan (1) Chronic kidney disease, stage 3b: PLAN: In July of this year, creatinine was close to 1.4-1.5 range. Over the last 2 to 3 months, creatinine has been between 1.8-2.0. Urine analysis appears to be fairly concentrated, 1+ protein, glycosuria from SGLT2 inhibitor, some cells. CT abdomen without any hydronephrosis. He says he was struggling with lower extremity edema, has been on diuretics as outpatient. Presented with shortness of breath, suspected to be from pneumonia, likely some component of fluid overload as well. CT chest reviewed, possible edema pattern. Okay to continue IV Lasix for now. Change in creatinine is likely hemodynamic shifts from ongoing diuresis. Will continue to follow. 01/05/2025: Overall renal function remains stable. Creatinine 2.1 yesterday, today serum creatinine 1.97. On Bumex 1 mg IV twice daily, Aldactone 25 mg daily. Per cumulative I&O net negative at least [address] noncontrast chest, abdomen and pelvis showed small bilateral pleural effusions, infiltrates slightly worse on left side. On IV antibiotics. Will continue with diuretics as ordered. Labs ordered for morning. Assessment and plan reviewed with Dr. Lopez. 01/06/2025; renal function remaining stable, today creatinine 1.88 mg/dL. Serum creatinine peaked 2.15 on 01/02. Remains on Bumex 1 mg IV twice daily and Aldactone 25 mg daily. Weights down. O2 requirement has improved. Continue with diuretics as ordered. Labs ordered for morning. Discussed nephrology plan with Dr. Sharp.
--- NOTE | 2025-01-06 13:15 | PN.HOSP_ITS ---
Reason for Visit Chief Complaint: Dyspnea, increased hypoxia/oxygen needs, URI sxs, subjective F/C. Objective Data Objective Data Vital Signs: Vital Signs Temp Pulse Resp BP Pulse Ox O2 Del Method O2 Flow Rate 99.8 F H 72 16 90/69 96 Nasal Cannula 5 01/06/25 09:00 01/06/25 09:00 01/06/25 09:00 01/06/25 09:00 01/06/25 09:00 01/06/25 09:29 01/06/25 09:29 Oxygen Flow Rate (L/min) 5 Oxygen Delivery Method Nasal Cannula Weight: 220 lb 7.396 oz Body Mass Index (BMI) 30.7 Intake & Output: Intake and Output for Last 24 Hours 01/04/25 01/05/25 01/06/25 23:59 23:59 23:59 Intake Total 1080 / 1430 529.08 / 529.08 290.5 / 290.5 Output Total 1400 / 1400 1200 / 1375 725 / 725 Balance -320 / 30 -670.92 / -845.92 -434.5 / -434.5 Lab / Micro Data 01/05/25 05:11 01/06/25 04:06 Labs: Laboratory Results - last 24 hr 01/05/25 12:58: POC Glucose 146 H 01/05/25 17:56: POC Glucose 105 01/05/25 22:04: POC Glucose 178 H 01/06/25 04:06: Sodium 139, Potassium 3.9, Chloride 106, Carbon Dioxide 21.3, Anion Gap 12, BUN 27 H, Creatinine 1.88 H, Estim Creat Clear Calc 40.90 L, Est GFR (MDRD) Non-Af 37 L, BUN/Creatinine Ratio 14.3, Glucose 105 H, Calcium 8.7 01/06/25 11:22: POC Glucose 109 H Micro: Microbiology 01/04/25 09:32 Blood Culture (Wb) - Right Hand Blood Culture - Preliminary No growth in 48 hours. 01/05/25 19:00 Urine, Clean Catch Legionella Antigen - Final 01/05/25 09:33 Mucosa - Nasopharyngeal Respiratory Panel (PCR) - Final 12/30/24 12:12 Blood Culture (Wb) - Anticubital Right Blood Culture - Final No growth in 5 days. 12/30/24 12:27 Blood Culture (Wb) - Left Hand Blood Culture - Final No growth in 5 days. 01/04/25 11:16 Stool Clostridioides difficile (PCR) - Final 01/01/25 17:30 Sputum, Expectorated/Coughed Gram Stain - Final 01/01/25 17:30 Sputum, Expectorated/Coughed Respiratory Culture - Final Presumptive C albicans 12/31/24 09:40 Urine, Clean Catch Urine Culture - Final Yeast, not Elisha albicans 12/30/24 14:15 Mucosa - Nasopharyngeal SARS-CoV-2, Influenza & RSV (PCR) - Final 12/24/24 23:21 Blood Culture (Wb) - Anticubital Left Blood Culture - Final No growth in 5 days. 12/25/24 00:33 Blood Culture (Wb) - Right Forearm Blood Culture - Final No growth in 5 days. 12/25/24 01:25 Urine, Clean Catch Urine Culture - Final Enterococcus faecalis Yeast, not Elisha albicans GNR lactose railroad police officer 12/25/24 20:10 Sputum, Expectorated/Coughed Gram Stain - Final 12/25/24 20:10 Sputum, Expectorated/Coughed Respiratory Culture - Final Presumptive C albicans 12/25/24 04:56 Mucosa - Nasopharyngeal Respiratory Panel (PCR) - Final 12/25/24 04:00 Nasal Secretion MRSA (PCR) - Final Meth. resistant Staph. aureus 12/25/24 01:25 Urine, Clean Catch Legionella Antigen - Final 12/25/24 01:25 Urine, Clean Catch Streptococcus pneumoniae Antigen (M - Final 12/24/24 23:30 Mucosa - Nose SARS-CoV-2, Influenza & RSV (PCR) - Final Physical Exam Narrative Seen and examined He did not had any fever last night, not feeling chills or rigors. Patient subjectively feeling improvement in shortness of breath. Physical exam General: Alert, Oriented x3, Cooperative. BMI 30.8 kg/m? HEENT: Atraumatic, PERRLA, EOMI, Normocephalic. Oral: No Gingival or Mucosal Lesions/ Ulcerations Neck: Supple, No JVD, Negative Carotid Bruits Chest wall/Lungs: Air entry diminished in all lung luu. Mild coarse crepitation bilateral. On 5 L of oxygen, gradual decrease from 7 L. Cardiovascular: Regular rate and rhythm, Normal S1,S2, systolic murmur Abdomen: Bowel Sounds Present, Soft, Non Tender, Non-Distended : No dysuria. No renal angle tenderness. No suprapubic tenderness. Extremities: Mild chronic edema, Capillary Refill Less than 3 Seconds Skin: No rashes, No breakdown Musculoskeletal: No Tenderness to Palpation of Joints or Extremities. ROM restricted Neurological: Cranial nerves II-XII grossly intact, DTR 2+/4. No acute focal neurological deficit. Psych/Mental Status: Flat affect. Assessment & Plan Assessment/Plan (1) Pneumonia: PLAN: Plan Patient is a 74-year-old male who presented to [facility] ED on 12/25/2024 with shortness of breath, URI symptoms and fever/chills. 1. Acute on Chronic Hypoxic and Hypercarbic Respiratory Failure secondary to bilateral MRSA pneumonia * Home O2 requirements verified by CM: 4 L at rest, 6 L with exertion, 3 L at night * Chest CTAshows bilateral patchy ground glass opacities/acinar densities predominantly right upper lobe. Bilateral pulmonary atelectatic changes with lower lobe bronchial wall thickening. PE ruled out. * Pneumonia workup shows respiratory panel and urinary antigens are negative. Triple PCR for SARS-CoV-2, flu and RSV are negative. Nasal MRSA screen positive. SCx positive for MRSA. * Patient empirically on IV vancomycin and pip/tazo during admission. Zosyn was changed to Unasyn with intention to narrow down the antibiotic on 12/26. With intermittent fever, ID changed Unasyn to Zosyn on 12/30 01/03: Patient is still having fever Tmax 100.2 Fahrenheit. On 6 L of oxygen 01/04: Patient had fever last night and in the morning was having chills, temperature 99.3 ?F. ID follow-up appreciated. Repeat CT was ordered on 01/04 which shows small bilateral effusion with bibasilar atelectasis and slightly worse infiltrates on the left side. Bumex dose increased to 1 mg IV twice daily for diuresis. On Vanco Zosyn and Diflucan. 01/05: CT reviewed and shows small bilateral pleural effusion but no acute change which can be attributed to fever. C. difficile test is negative. Respiratory panel ordered. On 6 L of oxygen. 01/06: Overall patient subjectively and objectively looks better in regards to shortness of breath. No fever. Tmax 99.8 Fahrenheit. Encouraged incentive spirometry and PEP. 2. MRSA pneumonia * continue vanc and pip/tazo. * Pt with ongoing symptoms. Will continue to monitor while inpatient. * ID following and ordered blood cultures on 12/30. Reviewed, still negative. Will continue antibiotics through tomorrow, appreciate further ID recs. 01/03: ID follow-up reviewed. Sputum culture negative so far. Urine culture Enterococcus but not in pathology range. Ongoing fever therefore vancomycin changed to IV Zosyn on 12/30. Sputum culture and urine culture with yeast, fluconazole added. 01/06: Was changed from Vanco Unasyn to Vanco Zosyn on 12/30. Flucaine was added on 01/03. On 01/04 respiratory panel negative. 01/05: Antibiotic changed to doxycycline meropenem and fluconazole. Venous duplex completed, not reported yet. 3. UTI ruled out: Urine culture growing GPC Enterococcus (25,000 and yeastlike organism) from 12/25. Repeat urine culture shows Elisha albicans 4. CAD: s/p LAD, RCA (2001) and L circumflex (2013), chronic HFrEF, chronic atrial fibrillation: Most recent echocardiogram 08/23/2024 with EF 25 to 30%, severe LV systolic dysfunction, no significant change from previous echocardiogram 05/2024 with EF at that time 25%. Continue Coreg, statin therapy. It seems patient is not on baby aspirin probably due to GI bleed. Baby aspirin started as patient is high risk for cardiac complications including NC and stroke. Patient not on MEDHAT or ARB. * Bumex 0.5 mg oral changed to IV and Jardiance resumed. * 01/02: Creatinine slightly rising as below. continue IV Bumex today but if creatinine continues to worsen tomorrow, recommend de-escalating to p.o. Bumex. 5. Chronic macrocytic anemia/Fe deficiency anemia complicated by history of significant recurrent GI bleeds w/ AVMs: Admission hemoglobin 9.2, MCV 97.6, baseline hemoglobin 8-10, stable, continue to trend. Continue PPI iron supplementation. Following Hematology, most recent visit noted 12/06/24. 01/03: H&H dropped to 7.0/22.4%. Platelet count normal. Monitor H&H in the evening today. Hold baby aspirin and heparin subcu. 01/05: Hemoglobin is still low about 7.6 g%. Platelet count normal. 6 Hx VTE, DVT and BL PE: Most recent event 07/2021 BL PE, prior DVT, history of significant GI bleeds status post IVC filter placement. 7. Diabetes mellitus type II: Will hold oral regimen, continue long-acting insulin regimen, will maintain on ADA diet, accu checks with ISS. 8. Rheumatoid arthritits: Previously on rituximab and prior also noted to have been on low dose prednisone, will clarify if currently ongoing but may have been discontinued given GI bleed issues. 9. Hypertension: Continue home Coreg, Spironolactone, Lasix with hold parameters as needed given low-normal BP in the ED, PRN hydralazine. 10. Hyperlipidemia: Continue home statin therapy. 11. History of non-Hodgkin's lymphoma: Considered in remission, s/p ABVD and radiation 2010, encourage continued outpatient follow-up with oncology as previously arranged or needed. 12 anxiety and depression: continue patient home escitalopram and mirtazapine regimen. 13 BPH with obstructive pathology: We will continue patient home finasteride and Flomax regimen. 14. Chronic Kidney Disease Stage IIIb: Admission BUN/Cr 50/2.04, GFR 33, baseline renal function more recently 1.7-2.7, seems to vacillate, most recently 12/06/2024 creatinine 2.70, repeat BMP in AM to elucidate current baseline. 12/26: Patient creatinine slightly better, 1.8 today. Baseline Bumex 0.5 mg IV resumed. 01/02: Creatinine 2.15, slightly up from previous days at 1.8-1.9. 01/03: BUN/creatinine 34/2.05. No significant change. 15. GERD with history of significant recurrent GI bleeds with AVMs: Will continue patient on PPI, as noted above #4. DVT prophylaxis: Heparin cautiously. 01/05: Heparin was discontinued because of severe anemia. Bilateral SCDs Code status: DNRCCA, DNI Disposition: to SNF to [facility] when medically stable. Says patient's pre-CERT labs in 1 days therefore when patient is medically ready then needs to apply pre- CERT. Discussed with the showcase trimmer Total time of the visit including total time spent in counseling or coordination of care, (more than 50% of the total time, spent in obtaining medical information from nurses and other ancillary care providers ,explaining to the patient about labs, imaging, diagnosis and management of active complex medical conditions), , review of labs and imaging is 35 minutes. Clinical Impression(s) from Imaging Studies Chest X-Ray 12/24/24 23:36 IMPRESSION: Minimal bilateral basilar atelectatic pulmonary changes. Reading Location: [place] [id number] Chest CTA 12/25/24 00:05 IMPRESSION: No evidence of pulmonary arterial thromboembolism. Cardiomegaly. Bilateral pulmonary patchy ground glass opacities and acinar densities, most evidently involving the right upper lung lobe, possibly infectious. Bilateral pulmonary atelectatic changes with predominantly lower lobar bronchial wall thickening No obvious pulmonary masses or consolidations. Reading Location: [place] [id number] Chest X-Ray 12/27/24 06:37 IMPRESSION: There is mild cardiomegaly. There is blunting of the costophrenic angle on the right and left consistent with trace effusions. [facility] 12/30/24 11:05 IMPRESSION: Stable mild cardiomegaly and mild pulmonary vascular congestion. Reading [facility] Chest/Abdomen/Pelvis CT 01/04/25 09:31 IMPRESSION: Small bilateral pleural effusions with bibasilar atelectasis and/or slightly infiltrates slightly worse on the left side. Reading Location: [id number] Charges/Coding Visit Charges Inpatient E&M: 83428 Subs Hosp L3
--- NOTE | 2025-01-06 13:29 | CASEMGMT ---
Discharge Planning Per [facility], pt will need to be on 3L at rest to admit. They are aware of his needs for exertion. TARAH CM updated. Batool Zeng DC Planning Asst.
[2025-01-06 13:34] LABS: Hematocrit 25.4 % (40-54); Hemoglobin 8.0 g/dL (13.0-16.5); Immature Granulocytes Count 0.730 X10^3/uL (0.0-0.0); Mean Corp Hgb Conc 31.5 g/dL (32-36); Mean Corpuscular Volume 101.2 fL (80-94); Mean Platelet Vol. 11.0 fl (6.2-12.0); NRBC Flagged by Analyzer 0.5 % (0-5); POSITIVE DIFFERENTIAL YES; POSITIVE MORPHOLOGY YES; Platelet Count 391 K/mm3 (150-450); RBC Distribution Width CV 18.4 % (11.6-14.6); RBC Distribution Width SD 67.7 fl (35.1-43.9); Red Blood Count 2.51 M/mm3 (4.6-6.2); White Blood Count 14.9 K/mm3 (4.4-11.0)
[2025-01-06 13:37] LABS: Differential Indicated SCAN CRITERIA MET
[2025-01-06 13:58] LABS: Anisocytosis 1+
[2025-01-06] MEDS: 0.9% Saline Lock 10 ML Syringe IV ×2 (17:51→20:46)
[2025-01-06] MEDS: Meropenem 1 GM in 0.9% Normal Saline (100mL MB+) 100 ML IV (20:28)
[2025-01-06] MEDS: Insulin Glargine-YFGN 100 UNIT/ML Pen 15 UNIT SC (22:24)
[2025-01-07] VITALS (13 sets, daily range): BP systolic 98–147; BP diastolic 56–74; PULSE 66–91; RESP 16–20; TEMP 36.5–37.1; O2SAT 92–100; BMI 30.7
[2025-01-07] MEDS: Budesonide Respules 0.5 MG/2 ML AMPUL.NEB. INHALATION ×3 (00:23→19:48)
[2025-01-07 04:58] LABS: Hematocrit 24.8 % (40-54); Hemoglobin 8.2 g/dL (13.0-16.5); Mean Corp Hgb Conc 33.1 g/dL (32-36); Mean Corpuscular Volume 98.0 fL (80-94); Mean Platelet Vol. 10.4 fl (6.2-12.0); POSITIVE COUNT YES; POSITIVE DIFFERENTIAL YES; POSITIVE MORPHOLOGY YES; Platelet Count 390 K/mm3 (150-450); RBC Distribution Width CV 17.7 % (11.6-14.6); RBC Distribution Width SD 63.0 fl (35.1-43.9); Red Blood Count 2.53 M/mm3 (4.6-6.2); White Blood Count 14.6 K/mm3 (4.4-11.0)
[2025-01-07 05:00] LABS: Differential Indicated MANUAL DIFF
[2025-01-07 05:37] LABS: Anion Gap 10 (5-15); BUN 29 mg/dL (4-19); BUN/Creat Ratio 14.1 RATIO (10-20); Calcium,Total 8.9 mg/dL (7.6-11.0); Carbon Dioxide 23.4 mmol/L (21.0-32.0); Chloride 106 mmol/L (98-108); Estimated Creatinine Clearance 37.66 ml/min (50-250); Glucose 129 mg/dL (70-99); Potassium 4.1 mmol/L (3.3-5.1)
[2025-01-07 06:22] LABS: Neutrophil-Band 28 % (0-5); Neutrophil-Segmented 41 % (47-70); Total Cells Counted 100 (MANUAL DIFF)
[2025-01-07 06:23] LABS: Differential Comment SCANNED
[2025-01-07 06:25] LABS: Red Cell Morphology NORM C+C NORMAL (NORM C&C)
--- NOTE | 2025-01-07 08:13 | PCM.PN.HOSP ---
Reason for Visit Chief Complaint: Dyspnea, increased hypoxia/oxygen needs, URI sxs, subjective F/C. Objective Data Objective Data Vital Signs: Vital Signs Temp Pulse Resp BP Pulse Ox O2 Del Method O2 Flow Rate 98.1 F 71 16 98/56 L 93 Nasal Cannula 5 01/07/25 02:53 01/07/25 07:00 01/07/25 07:00 01/07/25 02:53 01/07/25 07:00 01/07/25 07:00 01/07/25 07:00 Oxygen Flow Rate (L/min) 5 Oxygen Delivery Method Nasal Cannula Weight: 220 lb Body Mass Index (BMI) 30.7 Intake & Output: Intake and Output for Last 24 Hours 01/05/25 01/06/25 01/07/25 23:59 23:59 23:59 Intake Total 529.08 / 529.08 290.5 / 290.5 100 / 100 Output Total 1200 / 1375 1125 / 1125 200 / 200 Balance -670.92 / -845.92 -834.5 / -834.5 -100 / -100 Lab / Micro Data 01/07/25 04:35 01/07/25 04:35 Labs: Laboratory Results - last 24 hr 01/06/25 04:06: WBC 14.9 H, RBC 2.51 L, Hgb 8.0 L, Hct 25.4 L, MCV 101.2 H D, MCH 31.9, MCHC 31.5 L, RDW Std Deviation 67.7 H, RDW Coeff of Rafael 18.4 H, Plt Count 391, MPV 11.0, Immature Gran % (Auto) 4.900 H, Neut % (Auto) 66.0, Lymph % (Auto) 12.7 L, Wise % (Auto) 11.9 H, Eos % (Auto) 3.7, Baso % (Auto) 0.8, Absolute Neuts (auto) 9.9 H, Absolute Lymphs (auto) 1.90, Nucleated RBC % 0.5, Anisocytosis 1+ 01/06/25 11:22: POC Glucose 109 H 01/06/25 16:58: POC Glucose 94 01/06/25 22:22: POC Glucose 132 H 01/07/25 04:35: WBC 14.6 H, RBC 2.53 L, Hgb 8.2 L, Hct 24.8 L, MCV 98.0 H, MCH 32.4 H, MCHC 33.1 D, RDW Std Deviation 63.0 H, RDW Coeff of Rafael 17.7 H, Plt Count 390, MPV 10.4, Neut % (Auto) Not Reportable, Absolute Neuts (auto) 10.1 H, Absolute Lymphs (auto) 1.46, Total Counted 100, Neutrophils % (Manual) 41 L, Band Neutrophils % 28 H, Monocytes % (Manual) 11 H, Eosinophils % (Manual) 3, Basophils % (Manual) 1, Metamyelocytes % 2 H, Myelocytes % 3 H, Promyelocytes % 1 H, Differential Comment SCANNED, Platelet Estimate ADEQUATE, RBC Morphology NORM C+C, Sodium 140, Potassium 4.1, Chloride 106, Carbon Dioxide 23.4, Anion Gap 10, BUN 29 H, Creatinine 2.04 H, Estim Creat Clear Calc 37.66 L, Est GFR (MDRD) Non-Af 33 L, BUN/Creatinine Ratio 14.1, Glucose 129 H, Calcium 8.9 Micro: Microbiology 01/04/25 09:32 Blood Culture (Wb) - Right Hand Blood Culture - Preliminary No growth in 48 hours. 01/05/25 19:00 Urine, Clean Catch Legionella Antigen - Final 01/05/25 09:33 Mucosa - Nasopharyngeal Respiratory Panel (PCR) - Final 12/30/24 12:12 Blood Culture (Wb) - Anticubital Right Blood Culture - Final No growth in 5 days. 12/30/24 12:27 Blood Culture (Wb) - Left Hand Blood Culture - Final No growth in 5 days. 01/04/25 11:16 Stool Clostridioides difficile (PCR) - Final 01/01/25 17:30 Sputum, Expectorated/Coughed Gram Stain - Final 01/01/25 17:30 Sputum, Expectorated/Coughed Respiratory Culture - Final Presumptive C albicans 12/31/24 09:40 Urine, Clean Catch Urine Culture - Final Yeast, not Elisha albicans 12/30/24 14:15 Mucosa - Nasopharyngeal SARS-CoV-2, Influenza & RSV (PCR) - Final 12/24/24 23:21 Blood Culture (Wb) - Anticubital Left Blood Culture - Final No growth in 5 days. 12/25/24 00:33 Blood Culture (Wb) - Right Forearm Blood Culture - Final No growth in 5 days. 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 resistant Staph. aureus 12/25/24 01:25 Urine, Clean Catch Legionella Antigen - Final 12/25/24 01:25 Urine, Clean Catch Streptococcus pneumoniae Antigen (M - Final 12/24/24 23:30 Mucosa - Nose SARS-CoV-2, Influenza & RSV (PCR) - Final Radiography Diagnostic Testing: Radiology Impression Venous Doppler Study 01/05/25 08:17 Interpretation Summary Deep veins of the bilateral lower extremities are patent and compressible segmentally. There is no evidence of bilateral lower extremity deep vein thrombosis. The bilateral great saphenous veins appear patent and compressible segmentally. Ordering Physician: Wilberto Villafuerte Referring Physician: Donna Will M.D. Performed By: Lily Douglas, KATERINA Physical Exam Narrative Seen and examined He did not had any fever last night, not feeling chills or rigors. Patient subjectively feeling improvement in shortness of breath. Physical exam General: Alert, Oriented x3, Cooperative. BMI 30.8 kg/m? HEENT: Atraumatic, PERRLA, EOMI, Normocephalic. Oral: No Gingival or Mucosal Lesions/ Ulcerations Neck: Supple, No JVD, Negative Carotid Bruits Chest wall/Lungs: Air entry diminished in all lung luu. Mild coarse crepitation bilateral. On 5 L of oxygen, gradual decrease from 7 L. Cardiovascular: Regular rate and rhythm, Normal S1,S2, systolic murmur Abdomen: Bowel Sounds Present, Soft, Non Tender, Non-Distended : No dysuria. No renal angle tenderness. No suprapubic tenderness. Extremities: Mild chronic edema, Capillary Refill Less than 3 Seconds Skin: No rashes, No breakdown Musculoskeletal: No Tenderness to Palpation of Joints or Extremities. ROM restricted Neurological: Cranial nerves II-XII grossly intact, DTR 2+/4. No acute focal neurological deficit. Psych/Mental Status: Flat affect. Assessment & Plan Assessment/Plan (1) Pneumonia: PLAN: Plan Patient is a 74-year-old male who presented to [facility] ED on 12/25/2024 with shortness of breath, URI symptoms and fever/chills. 1. Acute on Chronic Hypoxic and Hypercarbic Respiratory Failure secondary to bilateral MRSA pneumonia Home O2 requirements verified by CM: 4 L at rest, 6 L with exertion, 3 L at night Chest CTAshows bilateral patchy ground glass opacities/acinar densities predominantly right upper lobe. Bilateral pulmonary atelectatic changes with lower lobe bronchial wall thickening. PE ruled out. Pneumonia workup shows respiratory panel and urinary antigens are negative. Triple PCR for SARS-CoV-2, flu and RSV are negative. Nasal MRSA screen positive. SCx positive for MRSA. Patient empirically on IV vancomycin and pip/tazo during admission. Zosyn was changed to Unasyn with intention to narrow down the antibiotic on 12/26. With intermittent fever, ID changed Unasyn to Zosyn on 12/30 01/03: Patient is still having fever Tmax 100.2 Fahrenheit. On 6 L of oxygen 01/04: Patient had fever last night and in the morning was having chills, temperature 99.3 ?F. ID follow-up appreciated. Repeat CT was ordered on 01/04 which shows small bilateral effusion with bibasilar atelectasis and slightly worse infiltrates on the left side. Bumex dose increased to 1 mg IV twice daily for diuresis. On Vanco Zosyn and Diflucan. 01/05: CT reviewed and shows small bilateral pleural effusion but no acute change which can be attributed to fever. C. difficile test is negative. Respiratory panel ordered. On 6 L of oxygen. 01/06: Overall patient subjectively and objectively looks better in regards to shortness of breath. No fever. Tmax 99.8 Fahrenheit. Encouraged incentive spirometry and PEP. 01/07: Patient is spiked fever again 101.4 fever. Leukocytosis 14.9 K. Patient has leukocytosis; not consistent pattern, went to zenith 15.2 and now gradually decreasing. Patient has been having intermittent fever once a day for last 3 to 4 days except yesterday. ID recommended pulmonary consult. Pulmonary consult appreciated. Possibility of noninfectious cause of fever as patient is appropriately covered with antibiotics under the guidance of ID. Autoimmune serologies were ordered. ABG and chest x-ray. IV Solu-Medrol 40 mg Q6 hourly. Rechecked COVID influenza and RSV PCR. Diuresis as per tolerated 2. MRSA pneumonia continue vanc and pip/tazo. Pt with ongoing symptoms. Will continue to monitor while inpatient. ID following and ordered blood cultures on 12/30. Reviewed, still negative. Will continue antibiotics through tomorrow, appreciate further ID recs. 01/03: ID follow-up reviewed. Sputum culture negative so far. Urine culture Enterococcus but not in pathology range. Ongoing fever therefore vancomycin changed to IV Zosyn on 12/30. Sputum culture and urine culture with yeast, fluconazole added. 01/06: Was changed from Vanco Unasyn to Vanco Zosyn on 12/30. Flucaine was added on 01/03. On 01/04 respiratory panel negative. 01/05: Antibiotic changed to doxycycline meropenem and fluconazole. Venous duplex completed, not reported yet. 01/07: Tmax 101.4 Fahrenheit, yesterday about 8:30 PM 3. UTI ruled out: Urine culture growing GPC Enterococcus (25,000 and yeastlike organism) from 12/25. Repeat urine culture shows Elisha albicans 4. CAD: s/p LAD, RCA (2001) and L circumflex (2013), chronic HFrEF, chronic atrial fibrillation: Most recent echocardiogram 08/23/2024 with EF 25 to 30%, severe LV systolic dysfunction, no significant change from previous echocardiogram 05/2024 with EF at that time 25%. Continue Coreg, statin therapy. It seems patient is not on baby aspirin probably due to GI bleed. Baby aspirin started as patient is high risk for cardiac complications including OH and stroke. Patient not on MEDHAT or ARB. Bumex 0.5 mg oral changed to IV and Jardiance resumed. 01/07: Bumex 1 mg twice daily since 01/04 and patient tolerating well. On Aldactone 25 mg daily creatinine went up today more from 1.88-2.04. Microbiology Past 72 Hours 01/04/25 09:32 Blood Culture (Wb) - Right Hand Blood Culture - Preliminary No growth in 48 hours. 01/05/25 19:00 Urine, Clean Catch Legionella Antigen - Final 01/05/25 09:33 Mucosa - Nasopharyngeal Respiratory Panel (PCR) - Final 12/30/24 12:12 Blood Culture (Wb) - Anticubital Right Blood Culture - Final No growth in 5 days. 12/30/24 12:27 Blood Culture (Wb) - Left Hand Blood Culture - Final No growth in 5 days. 01/04/25 11:16 Stool Clostridioides difficile (PCR) - Final 01/01/25 17:30 Sputum, Expectorated/Coughed Gram Stain - Final 01/01/25 17:30 Sputum, Expectorated/Coughed Respiratory Culture - Final Presumptive C albicans Laboratory Results 01/03/25 23:20: Crossmatch See Detail 01/06/25 04:06: WBC 14.9 H, RBC 2.51 L, Hgb 8.0 L, Hct 25.4 L, MCV 101.2 H D, MCH 31.9, MCHC 31.5 L, RDW Std Deviation 67.7 H, RDW Coeff of Rafael 18.4 H, Plt Count 391, MPV 11.0, Immature Gran % (Auto) 4.900 H, Neut % (Auto) 66.0, Lymph % (Auto) 12.7 L, Wise % (Auto) 11.9 H, Eos % (Auto) 3.7, Baso % (Auto) 0.8, Absolute Neuts (auto) 9.9 H, Absolute Lymphs (auto) 1.90, Nucleated RBC % 0.5, Anisocytosis 1+ 01/06/25 16:58: POC Glucose 94 01/06/25 22:22: POC Glucose 132 H 01/07/25 04:35: WBC 14.6 H, RBC 2.53 L, Hgb 8.2 L, Hct 24.8 L, MCV 98.0 H, MCH 32.4 H, MCHC 33.1 D, RDW Std Deviation 63.0 H, RDW Coeff of Rafael 17.7 H, Plt Count 390, MPV 10.4, Neut % (Auto) Not Reportable, Absolute Neuts (auto) 10.1 H, Absolute Lymphs (auto) 1.46, Total Counted 100, Neutrophils % (Manual) 41 L, Band Neutrophils % 28 H, Monocytes % (Manual) 11 H, Eosinophils % (Manual) 3, Basophils % (Manual) 1, Metamyelocytes % 2 H, Myelocytes % 3 H, Promyelocytes % 1 H, Differential Comment SCANNED, Platelet Estimate ADEQUATE, RBC Morphology NORM C+C, Sodium 140, Potassium 4.1, Chloride 106, Carbon Dioxide 23.4, Anion Gap 10, BUN 29 H, Creatinine 2.04 H, Estim Creat Clear Calc 37.66 L, Est GFR (MDRD) Non-Af 33 L, BUN/Creatinine Ratio 14.1, Glucose 129 H, Calcium 8.9 01/07/25 07:57: POC Glucose 108 H 5. Chronic macrocytic anemia/Fe deficiency anemia complicated by history of significant recurrent GI bleeds w/ AVMs: Admission hemoglobin 9.2, MCV 97.6, baseline hemoglobin 8-10, stable, continue to trend. Continue PPI iron supplementation. Following Hematology, most recent visit noted 12/06/24. 01/03: H&H dropped to 7.0/22.4%. Platelet count normal. Monitor H&H in the evening today. Hold baby aspirin and heparin subcu. 01/05: Hemoglobin is still low about 7.6 g%. Platelet count normal. 01/07: H&H 8.2/24.8%. Platelet count 3 90K. 6 Hx VTE, DVT and BL PE: Most recent event 07/2021 BL PE, prior DVT, history of significant GI bleeds status post IVC filter placement. 7. Diabetes mellitus type II: Will hold oral regimen, continue long-acting insulin regimen, will maintain on ADA diet, accu checks with ISS. 8. Rheumatoid arthritits: Previously on rituximab and prior also noted to have been on low dose prednisone, will clarify if currently ongoing but may have been discontinued given GI bleed issues. 9. Hypertension: Continue home Coreg, Spironolactone, Lasix with hold parameters as needed given low-normal BP in the ED, PRN hydralazine. 10. Hyperlipidemia: Continue home statin therapy. 11. History of non-Hodgkin's lymphoma: Considered in remission, s/p ABVD and radiation 2010, encourage continued outpatient follow-up with oncology as previously arranged or needed. 12 anxiety and depression: continue patient home escitalopram and mirtazapine regimen. 13 BPH with obstructive pathology: We will continue patient home finasteride and Flomax regimen. 14. Chronic Kidney Disease Stage IIIb: Admission BUN/Cr 50/2.04, GFR 33, baseline renal function more recently 1.7-2.7, seems to vacillate, most recently 12/06/2024 creatinine 2.70, repeat BMP in AM to elucidate current baseline. 12/26: Patient creatinine slightly better, 1.8 today. Baseline Bumex 0.5 mg IV resumed. 01/02: Creatinine 2.15, slightly up from previous days at 1.8-1.9. 01/03: BUN/creatinine 34/2.05. No significant change. 15. GERD with history of significant recurrent GI bleeds with AVMs: Will continue patient on PPI, as noted above #4. DVT prophylaxis: Heparin cautiously. 01/05: Heparin was discontinued because of severe anemia. Bilateral SCDs Code status: DNRCCA, DNI Disposition: to SNF to [facility] when medically stable. Says patient's pre-CERT labs in 1 days therefore when patient is medically ready then needs to apply pre-CERT. Discussed with the employment case manager Total time of the visit including total time spent in counseling or coordination of care, (more than 50% of the total time, spent in obtaining medical information from nurses and other ancillary care providers ,explaining to the patient about labs, imaging, diagnosis and management of active complex medical conditions), , review of labs and imaging is 35 minutes. Clinical Impression(s) from Imaging Studies Chest X-Ray 12/24/24 23:36 IMPRESSION: Minimal bilateral basilar atelectatic pulmonary changes. Reading Location: [place] [id number] Chest CTA 12/25/24 00:05 IMPRESSION: No evidence of pulmonary arterial thromboembolism. Cardiomegaly. Bilateral pulmonary patchy ground glass opacities and acinar densities, most evidently involving the right upper lung lobe, possibly infectious. Bilateral pulmonary atelectatic changes with predominantly lower lobar bronchial wall thickening No obvious pulmonary masses or consolidations. Reading [id number] 12/27/24 06:37 IMPRESSION: There is mild cardiomegaly. There is blunting of the costophrenic angle on the right and left consistent with trace effusions. Reading Location[facility] 12/30/24 11:05 IMPRESSION: Stable mild cardiomegaly and mild pulmonary vascular congestion. Reading Location[facility] Chest/Abdomen/Pelvis CT 01/04/25 09:31 IMPRESSION: Small bilateral pleural effusions with bibasilar atelectasis and/or slightly infiltrates slightly worse on the left side. Reading Location: [id number] Charges/Coding Visit Charges Inpatient E&M: 00166 Subs Hosp L3
[2025-01-07] MEDS: guaiFENesin/D-Methorphan TAB.SR.12H 2 TABLET PO ×2 (09:36→21:43)
[2025-01-07] MEDS: Meropenem 1 GM in 0.9% Normal Saline (100mL MB+) 100 ML IV ×2 (09:37→21:43)
--- NOTE | 2025-01-07 12:15 | EX.PCM.CONCC ---
Assessment & Plan Assessment/Plan (1) Acute and chronic respiratory failure with hypercapnia: PLAN: Plan RECOMMENDATIONS: 1. Supplemental oxygen to maintain saturations 88 to 92%. 2. Obtain follow-up chest x-ray and ABG. 3. Check autoimmune serologies. 4. Antimicrobials per ID recommendations. 5. Continue bronchodilators. 6. Initiate IV Solu-Medrol 40 mg every 6 hours. 7. Recheck COVID, influenza and RSV PCR's. 8. Diuresis, as tolerated by hemodynamics and renal function. IMPRESSIONS: 1. Acute on chronic combined respiratory failure in the setting of COPD The patient was initially admitted to the hospital 13 days ago with worsening shortness of breath with questionable pneumonia and UTI, which has been medically managed with antimicrobial therapy, under the discretion of infectious diseases. The patient's oxygen requirement increased early this morning, prompting our consultation. The patient continues to experience chills and intermittent fevers, despite the aforementioned interventions. Lower extremity Doppler study was negative for DVT. At this time, recommend obtaining autoimmune serologies, given intermittent fevers (I believe that the patient already has a history of diagnosed rheumatoid arthritis). Given the patient's increased oxygen requirement, I would recommend that you obtain a follow-up chest x-ray and recheck the patient for COVID, influenza and RSV. CT scan completed several days ago demonstrated small bilateral pleural effusions. Therefore, continuing diuresis as tolerated by hemodynamics and renal function, would be appropriate. The patient already has an IVC filter in place due to a history of pulmonary embolism, complicated by gastrointestinal bleeding in the setting of systemic anticoagulation. 2. History of Hodgkin's lymphoma/iron deficiency anemia/heart failure with reduced ejection fraction/coronary artery disease/hypertension/hyperlipidemia/history of PE status post IVC filter Complicates care, management, recovery and prognosis. Continue supportive measures as noted above. This note was generated with [employer] dictation software. It may contain incorrect words, spelling, and punctuation that were not noted in checking the note before signing. HPI Consult Data Date of Consult: 01/07/25 HPI Narrative Reason for Consultation: Acute on chronic respiratory failure HPI Narrative: The patient is a 74-year-old male, with a history as outlined below, who presented to the emergency department back on December 25 with complaints of dyspnea. The patient was ultimately admitted to the hospital with acute on chronic combined respiratory failure presumed secondary to pneumonia. We are now being consulted on hospital day #13 due to worsening hypoxemia. The patient has a known history of COPD, chronic hypoxemic respiratory failure with a baseline oxygen requirement of 4 to 5 L/min and known bronchiectasis, with chronic productive cough. The patient also has a remote history of Hodgkin's lymphoma along with iron deficiency anemia, heart failure with reduced ejection fraction, coronary artery disease, hypertension and hyperlipidemia. To date, the patient has been followed by infectious diseases with antimicrobial management under their discretion. Nephrology has also been following the patient due to his history of chronic kidney disease. The patient appears to have a single isolated temperature of 101.4 degrees noted overnight. Lower extremity Doppler study completed on January [address] imaging of the chest completed 3 days ago demonstrated small bilateral pleural effusions. Prior echocardiogram in July 2024 did reveal a depressed ejection fraction at 25 to 30%. This morning, the patient's white blood cell count was noted to be 14,000. Hemoglobin and platelet count are stable. Creatinine has increased to 2.04 from 1.88. The patient is currently receiving Diflucan, doxycycline and meropenem. He is also ordered to receive Bumex twice daily. It appears that the patient was being maintained on supplemental oxygen at 4 to 6 L/min for the last several days, but was escalated to heated high flow this morning. The patient does report generalized malaise, chills and fevers. [facility] Medical History Acute and chronic respiratory failure with hypercapnia Type 2 [place] (myocardial infarction) MRSA (methicillin resistant staph aureus) culture positive Ischemic cardiomyopathy COVID-19 Lethargic COPD with acute exacerbation Elevated troponin I level LUIS (acute kidney injury) Hypoxemia Chronic kidney disease (CKD), stage III (moderate) Acute hypoxic on chronic hypercapnic respiratory failure FTT (failure to thrive) in adult Former smoker On home oxygen therapy Bleeding tendency Ulcer High cholesterol History of stress test HTN (hypertension) Tobacco abuse History of pulmonary embolus (PE) (04/30/21) Essential hypertension Type 2 diabetes mellitus DVT (deep venous thrombosis) (05/01/21) Rhinovirus Acute respiratory failure with hypoxia Physical debility COVID-19 in immunocompromised patient Nicotine dependence, cigarettes, uncomplicated Diabetes Arthritis Cancer COPD (chronic obstructive pulmonary disease) History of basal cell carcinoma Atherosclerosis of coronary artery of [place] heart without angina pectoris Pneumonia Non-Hodgkin lymphoma History of pilonidal cyst Allergic rhinitis 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 complications Gastritis Colon polyp Obesity Asthma Chronic bronchitis Positive colorectal cancer screening using Cologuard test RA (rheumatoid arthritis) Home Medications ?Medication ?Instructions ?Recorded ?Last Taken ?Type finasteride 5 mg tablet 5 mg PO DAILY prostate 08/14/22 07/07/24 History tamsulosin 0.4 mg capsule 0.4 mg PO QHS prostate 08/14/22 07/07/24 History multivitamin 1 tab PO DAILY vitamin 09/13/22 07/07/24 History mirtazapine 15 mg tablet (Remeron) 7.5 mg (1/2 x 15 mg) PO QHS sleep 10/29/23 07/07/24 Rx #90 tabs needle (disp) 32 gauge 32 gauge x #100 ea 11/12/23 Unknown Rx 5/16 (Easy Touch Hypodermic Needle) pen needle, diabetic 32 gauge x #100 ea 12/03/23 Unknown Rx / 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 sensor (FreeStyle #1 ea 12/24/23 Unknown Rx Basilio 3 Sensor device) 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,staff antisubmarine officer,cont #1 ea 12/24/23 Unknown Rx (FreeStyle Basilio 3 [place]) ferrous sulfate 325 mg (65 mg 325 mg PO QODAY Supplement 04/05/24 07/07/24 History iron) tablet (FeroSul) cholecalciferol (vitamin D3) 50 50 mcg PO QDAY 06/28/24 07/07/24 History mcg (2,000 unit) capsule pantoprazole 40 mg tablet,delayed 40 mg PO DAILY 30 days #0 tabs 08/25/24 07/07/24 Rx release (Protonix) sennosides 8.6 mg-docusate sodium 2 tab PO BID PRN Constipation #0 08/25/24 Unknown Rx 50 mg tablet (Stimulant Laxative tabs Plus) albuterol sulfate 90 mcg/actuation 2 puff inhalation Q6 PRN shortness 09/24/24 Unknown History aerosol inhaler of breath or wheezing budesonide 1 mg/2 mL suspension 1 mg (2 mL) inhalation Q12H 09/24/24 Unknown Rx for nebulization wheezing/SOB #120 mL atorvastatin 40 mg tablet 40 mg PO QHS #90 tabs 10/08/24 Unknown Rx carvedilol 6.25 mg tablet 6.25 mg PO BID BP #180 tabs 10/08/24 Unknown Rx spironolactone 25 mg tablet 25 mg PO DAILY #90 tabs 10/08/24 Unknown Rx empagliflozin 10 mg tablet 10 mg PO DAILY #90 TABLETS 11/10/24 Unknown Rx (Jardiance) ipratropium 0.5 mg-albuterol 3 mg 3 ml inhalation Q4H PRN PRN SOB 11/26/24 Unknown Rx (2.5 mg base)/3 mL nebulization &/OR WHEEZING #270 mL soln escitalopram oxalate 10 mg tablet 10 mg PO DAILY mood 90 days #90 11/29/24 Unknown Rx tabs bumetanide 0.5 mg tablet 0.5 mg PO QDAY #180 tabs 12/17/24 Unknown Rx insulin aspart U-100 100 unit/mL See Rx Instructions subcut 12/23/24 Unknown Rx (3 mL) subcutaneous pen .COMPLEX High Blood Glucose #15 mL insulin glargine-yfgn 100 unit/mL See Rx Instructions subcut BIDCM 12/23/24 Unknown Rx (3 mL) subcutaneous pen high blood glucose #15 mL OXYGEN - Supplemental ([facility] hypoxia 12/25/24 Unknown History INFORMATIONAL USE ONLY) Allergy/AdvReac Type Severity Reaction Status Date / Time No Known Allergies Allergy Verified 12/06/24 10:24 Family History Father Arthritis Bleeding disorder Hypertension Kidney disease Cancer Skin Anemia blood clots Emphysema lung Mother Colon cancer Cancer Lung Cancer Diabetes Brother Thyroid disorder Surgical History History of embolic filter insertion History of heart artery stent Status post cardiac surgery H/O cardiac catheterization Presence of IVC filter (04/2021) History of coronary artery stent placement (10/22/13) History of thymectomy Hx of lymph node excision History of excision of pilonidal cyst Social History household members: spouse Smoking Status: Former smoker Tobacco: How many years used: 55 second hand exposure: Yes alcohol intake: current alcohol intake frequency: holidays/special occasions only substance use type: does not use caffeine: Yes Type: coffee Number of servings: 3 what type of physical activity do you participate in: none frequency: does not exercise seatbelt use: always ROS ROS Narrative 10 systems were reviewed with pertinent positives as noted in the HPI above. Physical Exam Const alert, oriented x3 and no apparent distress General Appearance: cooperative and ill appearing Positive for chronically HEENT normocephalic and head/scalp atraumatic Eyes PERRL, EOMs intact bilaterally and conjunctivae normal Neck supple General: trachea midline Chest inspection of chest normal Resp normal respiratory effort Auscultation: diminished lung sounds Cardio regular rate and regular rhythm GI normal to inspection, nondistended, normoactive bowel sounds Extremity no clubbing, cyanosis or edema Skin no rashes or lesions noted Neuro CN's II-XII intact bilaterally, moves all extremities and no focal motor deficits Psych Mood & Affect: flat affect Lab / Micro Data 01/07/25 04:35 01/07/25 04:35 Labs: Laboratory Results - last 24 hr 01/03/25 23:20: Crossmatch See Detail 01/06/25 04:06: WBC 14.9 H, RBC 2.51 L, Hgb 8.0 L, Hct 25.4 L, MCV 101.2 H D, MCH 31.9, MCHC 31.5 L, RDW Std Deviation 67.7 H, RDW Coeff of Rafael 18.4 H, Plt Count 391, MPV 11.0, Immature Gran % (Auto) 4.900 H, Neut % (Auto) 66.0, Lymph % (Auto) 12.7 L, [place] % (Auto) 11.9 H, Eos % (Auto) 3.7, Baso % (Auto) 0.8, Absolute Neuts (auto) 9.9 H, Absolute Lymphs (auto) 1.90, Nucleated RBC % 0.5, Anisocytosis 1+ 01/06/25 16:58: POC Glucose 94 01/06/25 22:22: POC Glucose 132 H 01/07/25 04:35: WBC 14.6 H, RBC 2.53 L, Hgb 8.2 L, Hct 24.8 L, MCV 98.0 H, MCH 32.4 H, MCHC 33.1 D, RDW Std Deviation 63.0 H, RDW Coeff of Rafael 17.7 H, Plt Count 390, MPV 10.4, Neut % (Auto) Not Reportable, Absolute Neuts (auto) 10.1 H, Absolute Lymphs (auto) 1.46, Total Counted 100, Neutrophils % (Manual) 41 L, Band Neutrophils % 28 H, Monocytes % (Manual) 11 H, Eosinophils % (Manual) 3, Basophils % (Manual) 1, Metamyelocytes % 2 H, Myelocytes % 3 H, Promyelocytes % 1 H, Differential Comment SCANNED, Platelet Estimate ADEQUATE, RBC Morphology NORM C+C, Sodium 140, Potassium 4.1, Chloride 106, Carbon Dioxide 23.4, Anion Gap 10, BUN 29 H, Creatinine 2.04 H, Estim Creat Clear Calc 37.66 L, Est GFR (MDRD) Non-Af 33 L, BUN/Creatinine Ratio 14.1, Glucose 129 H, Calcium 8.9 01/07/25 07:57: POC Glucose 108 H Micro: Microbiology 01/04/25 09:32 Blood Culture (Wb) - Right Hand Blood Culture - Preliminary No growth in 48 hours. Imaging Radiology Impression Venous Doppler Study 01/05/25 08:17 Interpretation Summary Deep veins of the bilateral lower extremities are patent and compressible segmentally. There is no evidence of bilateral lower extremity deep vein thrombosis. The bilateral great saphenous veins appear patent and compressible segmentally. Ordering Physician: Wilberto Villafuerte Referring Physician: Donna Will M.D. Performed By: Lily Douglas RVT Charges/Coding Visit Charges Inpatient E&M: 56587 Init Hosp L3
--- NOTE | 2025-01-07 13:27 | PCM.CONS.P ---
[facility] Medical History Acute and chronic respiratory failure with hypercapnia Type 2 CT (myocardial infarction) MRSA (methicillin resistant staph aureus) culture positive Ischemic cardiomyopathy COVID-19 Lethargic COPD with acute exacerbation Elevated troponin I level LUIS (acute kidney injury) Hypoxemia Chronic kidney disease (CKD), stage III (moderate) Acute hypoxic on chronic hypercapnic respiratory failure FTT (failure to thrive) in adult Former smoker On home oxygen therapy Bleeding tendency Ulcer High cholesterol History of stress test HTN (hypertension) Tobacco abuse History of pulmonary embolus (PE) (04/30/21) Essential hypertension Type 2 diabetes mellitus DVT (deep venous thrombosis) (05/01/21) Rhinovirus Acute respiratory failure with hypoxia Physical debility COVID-19 in immunocompromised patient Nicotine dependence, cigarettes, uncomplicated Diabetes Arthritis Cancer COPD (chronic obstructive pulmonary disease) History of basal cell carcinoma Atherosclerosis of coronary artery of [place]asta heart without angina pectoris Pneumonia Non-Hodgkin lymphoma History of pilonidal cyst Allergic rhinitis 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 complications Gastritis Colon polyp Obesity Asthma Chronic bronchitis Positive colorectal cancer screening using Cologuard test RA (rheumatoid arthritis) Home Medications ?Medication ?Instructions ?Recorded ?Last Taken ?Type finasteride 5 mg tablet 5 mg PO DAILY prostate 08/14/22 07/07/24 History tamsulosin 0.4 mg capsule 0.4 mg PO QHS prostate 08/14/22 07/07/24 History multivitamin 1 tab PO DAILY vitamin 09/13/22 07/07/24 History mirtazapine 15 mg tablet (Remeron) 7.5 mg (1/2 x 15 mg) PO QHS sleep 10/29/23 07/07/24 Rx #90 tabs needle (disp) 32 gauge 32 gauge x #100 ea 11/12/23 Unknown Rx 5/16 (Easy Touch Hypodermic Needle) pen needle, diabetic 32 gauge x #100 ea 12/03/23 Unknown Rx 5/32 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 sensor (FreeStyle #1 ea 12/24/23 Unknown Rx Basilio 3 Sensor device) 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,practice architect,cont #1 ea 12/24/23 Unknown Rx (FreeStyle Basilio 3 [place]) ferrous sulfate 325 mg (65 mg 325 mg PO QODAY Supplement 04/05/24 07/07/24 History iron) tablet (FeroSul) cholecalciferol (vitamin D3) 50 50 mcg PO QDAY 06/28/24 07/07/24 History mcg (2,000 unit) capsule pantoprazole 40 mg tablet,delayed 40 mg PO DAILY 30 days #0 tabs 08/25/24 07/07/24 Rx release (Protonix) sennosides 8.6 mg-docusate sodium 2 tab PO BID PRN Constipation #0 08/25/24 Unknown Rx 50 mg tablet (Stimulant Laxative tabs Plus) albuterol sulfate 90 mcg/actuation 2 puff inhalation Q6 PRN shortness 09/24/24 Unknown History aerosol inhaler of breath or wheezing budesonide 1 mg/2 mL suspension 1 mg (2 mL) inhalation Q12H 09/24/24 Unknown Rx for nebulization wheezing/SOB #120 mL atorvastatin 40 mg tablet 40 mg PO QHS #90 tabs 10/08/24 Unknown Rx carvedilol 6.25 mg tablet 6.25 mg PO BID BP #180 tabs 10/08/24 Unknown Rx spironolactone 25 mg tablet 25 mg PO DAILY #90 tabs 10/08/24 Unknown Rx empagliflozin 10 mg tablet 10 mg PO DAILY #90 TABLETS 11/10/24 Unknown Rx (Jardiance) ipratropium 0.5 mg-albuterol 3 mg 3 ml inhalation Q4H PRN PRN SOB 11/26/24 Unknown Rx (2.5 mg base)/3 mL nebulization &/OR WHEEZING #270 mL soln escitalopram oxalate 10 mg tablet 10 mg PO DAILY mood 90 days #90 11/29/24 Unknown Rx tabs bumetanide 0.5 mg tablet 0.5 mg PO QDAY #180 tabs 12/17/24 Unknown Rx insulin aspart U-100 100 unit/mL See Rx Instructions subcut 12/23/24 Unknown Rx (3 mL) subcutaneous pen .COMPLEX High Blood Glucose #15 mL insulin glargine-yfgn 100 unit/mL See Rx Instructions subcut BIDCM 12/23/24 Unknown Rx (3 mL) subcutaneous pen high blood glucose #15 mL OXYGEN - Supplemental ([facility] hypoxia 12/25/24 Unknown History INFORMATIONAL USE ONLY) Allergy/AdvReac Type Severity Reaction Status Date / Time No Known Allergies Allergy Verified 12/06/24 10:24 Family History Father Arthritis Bleeding disorder Hypertension Kidney disease Cancer Skin Anemia blood clots Emphysema lung Mother Colon cancer Cancer Lung Cancer Diabetes Brother Thyroid disorder Surgical History History of embolic filter insertion History of heart artery stent Status post cardiac surgery H/O cardiac catheterization Presence of IVC filter (04/2021) History of coronary artery stent placement (10/22/13) History of thymectomy Hx of lymph node excision History of excision of pilonidal cyst Social History household members: spouse Smoking Status: Former smoker Tobacco: How many years used: 55 second hand exposure: Yes alcohol intake: current alcohol intake frequency: holidays/special occasions only substance use type: does not use caffeine: Yes Type: coffee Number of servings: 3 what type of physical activity do you participate in: none frequency: does not exercise seatbelt use: always ROS Constitutional Constitutional: Reports body ache(s), chills, fatigue, fever(s), night sweats, poor appetite and weakness Eyes Eyes: Reports systems reviewed and no addt'l complaints, except as documented ENT HEENT: Reports systems reviewed and no addt'l complaints, except as documented Cardiovascular Cardiovascular: Reports dyspnea, dyspnea at rest, dyspnea on exertion, easily tiring during activity, fatigue and irregular heart rhythm Respiratory/Chest Respiratory/Chest: Reports dyspnea on exertion, portable oxygen @ home, shortness of breath at rest and shortness of breath with exertion Gastrointestinal Gastrointestinal: Reports as per HPI Genitourinary Genitourinary: Reports systems reviewed and no addt'l complaints, except as documented and as per HPI Musculoskeletal Musculoskeletal: Reports arthralgias, joint pain and joint stiffness Integumentary Integumentary: Reports as per HPI Neurologic Neurologic: Reports as per HPI Psychiatric Psychiatric: Reports depression Endocrine Endocrinology: Reports fatigue Hematologic/Lymphatic Hematologic/Lymphatic: Reports anemia Allergic/Immunologic Allergic/Immunologic: Reports systems reviewed and no addt'l complaints, except as documented Physical Exam Const alert and oriented x3 General Appearance: cooperative HEENT normocephalic Eyes PERRL Lymph Lymphatic: no lymphadenopathy noted Resp Auscultation: crackles, wheezes and diminished lung sounds Cardio regular rate and regular rhythm GI normal to inspection, nondistended, normoactive bowel sounds Extremity Extremity Narrative: SCD's in place Peripheral Pulses: Yes pulses 2+ throughout Skin Skin Narrative: per HPI Neuro Speech: speech normal Psych Mood & Affect: flat affect Charges/Coding Palliative Care Palliative Care: 19076 New Pt Consult 80+ min HPI Current admission Current Code Status: [id number] no intubation Associated Diagnosis: acute on chronic respiratory failure Consult Data Date of Consult: 01/07/25 Location of consult: PCU Reason for referral: goals of care Referral source: / Palliative care diagnosis (Summary list): acute on chronic respiratory failure Palliative care services/treatment (Accepted, as consult): accepted Case discussed with referring provider: pt unsure of goals HPI Narrative HPI Narrative: PAIN ASSESSMENT Location: [buttocks ] Quality: [burning ] Severity/Quantity: [ moderate ] Timing/Frequency: [ when no repositioned ] Context: [being in bed ] Factors that make it better/worse: [repositioning helps ] Associated signs & symptoms: [agitation/restlessness ] Patient bedside I reviewed extensive documentation since the patient has been here for 14 days, labs and radiological studies. I then went with the patient, Jaydon at bedside. I reduced myself and the concept of palliative care in which he is familiar as he is [facility] basis. I had an extensive discussion about goals of care going forward. Jaydon was very tired and stated that he did not feel well enough to talk about hospice right now but he was possibly interested in it down the road. I assisted in repositioning him in bed and he requested that I call his son Ray. Upon leaving the room I did contact his son in which she was already in the building, I then met Ray, his and Jaydon in Jaydon's room. We had an extensive discussion about Jaydon having been in the hospital for 14 days and instead of getting better, he is having worsening kidney functioning and is requiring high flow nasal cannula for oxygenation. Ray and his felt that Jaydon would do best with hospice in the facility. They stated that they do not have the ability to take Jaydon home with hospice because they do not have the ability to provide 24/7 care in the home. Jaydon is very frustrated with his son and [id number] because he kept saying that he wanted to go home. Ray did reiterate multiple times that it was not that they did not want him home but that they were unable to give him the best care at home. I asked Jaydon how he felt about hospice and his answer was I want to get better, then I will go on hospice and want to go home. I did explain to Jaydon that if he were to get better he may not need hospice but if his goal of care is comfort and getting out of the hospital then I would recommend hospice. Ray then reiterated to his father that they are unable to care for him at home. Jaydon then made the decision that he wanted to continue on his current trajectory with continued medical management. He is hoping to go to rehab following this admission once he is medically stable and then to go home. I thanked Jaydon for sharing his wants with us and support his decision to continue medical management. Ray stated that he plans to continue the conversation with his dad over the weekend. I then updated CM/SW about the patient's goals of care going forward. Palliative care will continue to follow for goals of care conversations as clinical picture evolves. All questions were answered. I did provide Ray and his with my contact information here in the hospital if they were to have any questions. 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/p IVC Filter placement, Former tobacco use, Hx COVID-19 PNA , Pulmonary Fibrosis, COPD/asthma w/ Chronic Hypoxic Respiratory Failure (3-4L NC), Anxiety and Depression, Chronic anemia/Fe deficiency anemia w/ Hx GI bleed w/ AVMs, Hx Hodgkins lymphoma S/P ABVD and Radiation 2000 who presents to the [place] ED on 12/25/2024 with history of onset of subjective fever, chills, cough and dyspnea with onset over the last 48 to 72 hours with no recent specific ill contacts with need to increase his oxygen to 4 to 5 L because of his symptoms with no marked improvement prompt eventual ED evaluation to be cautious. Workup in the ED included T100.4, heart 93, BP 147/51, respiratory rate 25, 96% on 6 L nasal cannula with most recent repeat vitals T101.1, heart rate 84, BP 130/70, respiratory rate 23, 94% on 6 L nasal cannula, CBC with WC 14.3, hemoglobin 9.2, MCV 97.6, platelet 301 with increased immature granulocytes, NT-proBNPII 2413, magnesium 2.1, lactic acid 1.7, procalcitonin 0.14, BMP with BUN/Cr 50/2.04, GFR 33, glucose 266, chest x-ray with minimal bilateral basilar atelectatic pulmonary changes, CTPA with no evidence of pulmonary arterial thromboembolism, evidence cardiomegaly, bilateral pulmonary patchy ground glass opacities and acinar densities involving especially the upper lobe possibly infectious, bilateral pulmonary atelectatic changes with predominantly lower lobe bronchial wall thickening with no obvious pulmonary mass or consolidations,, urinalysis with turbid appearing urine, specific gravity 1.020, protein 100, glucose thousand, occult blood 50, leukocyte esterase 500, urine WBCs 50-100 with 2+ urine bacteria, blood culture pending x 2, urine culture pending per ED, rapid SARS COVID/influenza/RSV PCR negative. In the ED patient ministered maintenance IV fluids, Tylenol 1000 g p.o. x 1, IV vancomycin and IV Zosyn. per Dr. Singleton 01/07/25:The patient is a 74-year-old male, with a history as outlined below, who presented to the emergency department back on December 25 with complaints of dyspnea. The patient was ultimately admitted to the hospital with acute on chronic combined respiratory failure presumed secondary to pneumonia. We are now being consulted on hospital day #13 due to worsening hypoxemia. The patient has a known history of COPD, chronic hypoxemic respiratory failure with a baseline oxygen requirement of 4 to 5 L/min and known bronchiectasis, with chronic productive cough. The patient also has a remote history of Hodgkin's lymphoma along with iron deficiency anemia, heart failure with reduced ejection fraction, coronary artery disease, hypertension and hyperlipidemia. To date, the patient has been followed by infectious diseases with antimicrobial management under their discretion. Nephrology has also been following the patient due to his history of chronic kidney disease. The patient appears to have a single isolated temperature of 101.4 degrees noted overnight. Lower extremity Doppler study completed on January [address] imaging of the chest completed 3 days ago demonstrated small bilateral pleural effusions. Prior echocardiogram in July 2024 did reveal a depressed ejection fraction at 25 to 30%. This morning, the patient's white blood cell count was noted to be 14,000. Hemoglobin and platelet count are stable. Creatinine has increased to 2.04 from 1.88. The patient is currently receiving Diflucan, doxycycline and meropenem. He is also ordered to receive Bumex twice daily. It appears that the patient was being maintained on supplemental oxygen at 4 to 6 L/min for the last several days, but was escalated to heated high flow this morning. The patient does report generalized malaise, chills and fevers. *This note was generated with [employer] dictation software. It may contain incorrect words, spelling, and punctuation that were not noted in checking the note before signing. Palliative Assessment Advanced Directive - Current Admission Advance Directive: Advance Directive ON ADMISSION - REFERENCE Do you have a Healthcare Yes 12/25/24 03:13 Living Will? Is a Healthcare Living Will Yes, It is scanned in 12/25/24 03:13 present in the medical record? Do you have a Healthcare Power Yes 12/25/24 03:13 of Human Resources File Clerk? Is a Healthcare Power of Yes, It is scanned in 12/25/24 03:13 Human Resources File Clerk present in the medical rec Do You Want Additional Declined 12/25/24 03:13 Information on Advanced Directives or Healthcare Proxy/DPOA comments: antonio Bell Psychosocial/Spiritual Information Living situation/Marital status: lives with son Geographic location: [place] Supports: family Yarsanism/Lily or spiritual preference: none Spiritual distress: denies Prior functional status: can dress self Assistive devices at home: rollator Cultrual issues: none Information about the patient as a person: likes to read [employer] and [place] [employer] Symptoms Palliative performance scale: 40% Palliative prognostic index: 8.5 Dyspnea symptoms: Severe Nausea symptoms: None Vomiting symptoms: None Depression symptoms: Moderate Anorexia symptoms: Moderate Cough symptoms: Mild Insomnia symptoms: None Fatigue symptoms: Severe Weakness symptoms: Severe Confusion symptoms: None Objective Data Objective Data Vital Signs: Vital Signs Temp Pulse Resp BP Pulse Ox O2 Del Method O2 Flow Rate 98.7 F 88 19 H 147/70 H 95 Nasal Cannula 5 01/07/25 09:00 01/07/25 09:00 01/07/25 09:00 01/07/25 09:00 01/07/25 09:30 01/07/25 10:00 01/07/25 10:00 FiO2 60 01/07/25 09:30 Oxygen Flow Rate (L/min) 5 Oxygen Delivery Method Nasal Cannula Weight: 220 lb Body Mass Index (BMI) 30.7 Intake & Output: Intake and Output for Last 24 Hours 01/05/25 01/06/25 01/07/25 23:59 23:59 23:59 Intake Total 529.08 / 529.08 290.5 / 290.5 200 / 200 Output Total 1200 / 1375 1125 / 1125 200 / 200 Balance -670.92 / -845.92 -834.5 / -834.5 0 / 0 Lab / Micro Data Attestation: I reviewed the patient's lab results. Lab results narrative: worsening of kidney function today 01/07/25 04:35 01/07/25 04:35 Labs: Laboratory Results - last 24 hr 01/03/25 23:20: Crossmatch See Detail 01/06/25 04:06: WBC 14.9 H, RBC 2.51 L, Hgb 8.0 L, Hct 25.4 L, MCV 101.2 H D, MCH 31.9, MCHC 31.5 L, RDW Std Deviation 67.7 H, RDW Coeff of Rafael 18.4 H, Plt Count 391, MPV 11.0, Immature Gran % (Auto) 4.900 H, Neut % (Auto) 66.0, Lymph % (Auto) 12.7 L, Luna % (Auto) 11.9 H, Eos % (Auto) 3.7, Baso % (Auto) 0.8, Absolute Neuts (auto) 9.9 H, Absolute Lymphs (auto) 1.90, Nucleated RBC % 0.5, Anisocytosis 1+ 01/06/25 16:58: POC Glucose 94 01/06/25 22:22: POC Glucose 132 H 01/07/25 04:35: WBC 14.6 H, RBC 2.53 L, Hgb 8.2 L, Hct 24.8 L, MCV 98.0 H, MCH 32.4 H, MCHC 33.1 D, RDW Std Deviation 63.0 H, RDW Coeff of Rafael 17.7 H, Plt Count 390, MPV 10.4, Neut % (Auto) Not Reportable, Absolute Neuts (auto) 10.1 H, Absolute Lymphs (auto) 1.46, Total Counted 100, Neutrophils % (Manual) 41 L, Band Neutrophils % 28 H, Monocytes % (Manual) 11 H, Eosinophils % (Manual) 3, Basophils % (Manual) 1, Metamyelocytes % 2 H, Myelocytes % 3 H, Promyelocytes % 1 H, Differential Comment SCANNED, Platelet Estimate ADEQUATE, RBC Morphology NORM C+C, Sodium 140, Potassium 4.1, Chloride 106, Carbon Dioxide 23.4, Anion Gap 10, BUN 29 H, Creatinine 2.04 H, Estim Creat Clear Calc 37.66 L, Est GFR (MDRD) Non-Af 33 L, BUN/Creatinine Ratio 14.1, Glucose 129 H, Calcium 8.9 01/07/25 07:57: POC Glucose 108 H 01/07/25 12:47: POC Glucose 155 H Micro: Microbiology 01/04/25 09:32 Blood Culture (Wb) - Right Hand Blood Culture - Preliminary No growth in 48 hours. 01/05/25 19:00 Urine, Clean Catch Legionella Antigen - Final 01/05/25 09:33 Mucosa - Nasopharyngeal Respiratory Panel (PCR) - Final 12/30/24 12:12 Blood Culture (Wb) - Anticubital Right Blood Culture - Final No growth in 5 days. 12/30/24 12:27 Blood Culture (Wb) - Left Hand Blood Culture - Final No growth in 5 days. 01/04/25 11:16 Stool Clostridioides difficile (PCR) - Final 01/01/25 17:30 Sputum, Expectorated/Coughed Gram Stain - Final 01/01/25 17:30 Sputum, Expectorated/Coughed Respiratory Culture - Final Presumptive C albicans 12/31/24 09:40 Urine, Clean Catch Urine Culture - Final Yeast, not Elisha albicans 12/30/24 14:15 Mucosa - Nasopharyngeal SARS-CoV-2, Influenza & RSV (PCR) - Final 12/24/24 23:21 Blood Culture (Wb) - Anticubital Left Blood Culture - Final No growth in 5 days. 12/25/24 00:33 Blood Culture (Wb) - Right Forearm Blood Culture - Final No growth in 5 days. 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 resistant Staph. aureus 12/25/24 01:25 Urine, Clean Catch Legionella Antigen - Final 12/25/24 01:25 Urine, Clean Catch Streptococcus pneumoniae Antigen (M - Final 12/24/24 23:30 Mucosa - Nose SARS-CoV-2, Influenza & RSV (PCR) - Final Radiography Diagnostic Testing: Radiology Impression Venous Doppler Study 01/05/25 08:17 Interpretation Summary Deep veins of the bilateral lower extremities are patent and compressible segmentally. There is no evidence of bilateral lower extremity deep vein thrombosis. The bilateral great saphenous veins appear patent and compressible segmentally. Ordering Physician: Wilberto Villafuerte Referring Physician: Donna Will M.D. Performed By: Lily Douglas RVT Rhythm Strip Rhythm Strip: currently sinus Impressions & Recommendations Patient & Family Issues discussed with the patient and family: Goals of care Patient goal: Patient wants to continue medical management, at this time. He is hopeful to get better and go to SNF and then home Family goal: Family feels that, based on his current presentation, Jaydon would be best served with inpatient hospice but will honor his wishes and continue medical management. Ethical & Legal Ethical and legal: Patient does have a POA. His son Ray. Impressions Impressions: Patient would benefit for hospice services if he so chose Recommentation Palliative recommendations: Continue with outpatient palliative care until he is ready for hospice. Encouter Achieved as a result of this Palliative Care Encounter: [ [id number], [id number]] minutes were spent in total for this visit which consisted, primarily of counseling and education dealing with the complex and emotionally intense issues of symptom management and palliative care in the setting of serious and potentially life-threatening illness. Review of documentation, labs and radiological studies. ?Patient/family had the opportunity to ask questions Plan (1) Pneumonia: (2) MRSA bacteremia: (3) Respiratory insufficiency: (4) Renal insufficiency: (5) Diabetes mellitus type 2, insulin dependent: (6) Palliative care encounter: (7) Goals of care, counseling/discussion: PLAN: Plan *Medical management per primary teams *Extensive discussion about goals of care with the patient *Family meeting with patient and family about goals of care *Presented the patient and family were the options going forward *Patient states understanding about hospice versus continued medical management *Palliative care will continue to follow up on Friday *Endorses CODE STATUS to be DNR CC?a with no intubation *Updated [facility] about patient's hospitalization *Updated CM/SW about family meeting *Updated primary provider about results of family
[2025-01-07 13:31] LABS: Base Excess -2 mmol/L (-2 to +2); Comment AIRVO; FI02 60.0; PO2 85 mmHG (75-100); SITE R Radial; SO2 97 % (94-98)
[2025-01-07 13:50] LABS: Pro- Brain NATRIURETIC PEPTIDE 6130 pg/mL (<=1800); Procalcitonin 0.16 ng/mL (<=0.10)
--- NOTE | 2025-01-07 14:00 | RAD_ITS ---
PROCEDURE: CHEST 1 VIEW (PORTABLE) 01/07/2025 REASON FOR EXAM: RESPIRATORY FAILURE TECHNIQUE: Frontal view of the chest. COMPARISON: Prior chest radiograph dated December 30, 2024. FINDINGS: Hardware: EKG electrodes are seen. Heart: Prior CABG. Mild cardiomegaly. Lungs: Blunting of both costophrenic angles suggestive of mild bilateral pleural effusions with bibasilar atelectasis. Bones: Degenerative changes are identified within the thoracic spine. RAD/Chest 1 View (Portable) IMPRESSION: Small bilateral pleural effusions with bibasilar atelectasis. Reading Location: [facility] [facility]-
--- NOTE | 2025-01-07 15:24 | PCM.PN.ID ---
Physical Exam Narrative Feeling about the same, still dyspnea, fever Const alert and no apparent distress Resp Auscultation: diminished lung sounds Cardio Rate: tachycardic GI soft to palpation, non-tender and non-distended Skin no rashes or lesions noted ID ID: Route of nutrition/ use of supplements: [] Nutritional Intake: [] IV Site: [] Ball Catheter: [] Assessment & Plan Assessment/Plan (1) UTI (urinary tract infection): (2) Pneumonia: PLAN: On admit, Ucx with small growth enterococcus. Sputum cx neg so far. Had ongoing fever, so changed vanc/unasyn to vanc/zosyn 12/30. No further fever. Sputum and urine with yeast, 01/03/25 added fluc. Still with fever, 01/04 had neg resp pcr panel and ordered doppler BLE. 01/05 changed abx to doxy/sveta/fluc. Still fever last night, feeling about the same. Recommended pulm consult, also seen by palliative. Will follow, d/w Dr. Sharp (3) Acute and chronic respiratory failure with hypercapnia:
[2025-01-07] MEDS: Insulin Glargine-YFGN 100 UNIT/ML Pen 15 UNIT SC (21:47)
[2025-01-07] MEDS: 0.9% Saline Lock 10 ML Syringe IV ×2 (21:55→23:11)
[2025-01-08] VITALS (8 sets, daily range): BP systolic 102–119; BP diastolic 53–65; PULSE 65–97; RESP 14–18; TEMP 36.2–36.8; O2SAT 91–97; BMI 30.9
[2025-01-08 05:48] LABS: Hematocrit 27.3 % (40-54); Hemoglobin 8.5 g/dL (13.0-16.5); Mean Corp Hgb Conc 31.1 g/dL (32-36); Mean Corpuscular Volume 97.8 fL (80-94); Mean Platelet Vol. 10.6 fl (6.2-12.0); POSITIVE COUNT YES; POSITIVE MORPHOLOGY YES; Platelet Count 420 K/mm3 (150-450); RBC Distribution Width CV 17.2 % (11.6-14.6); RBC Distribution Width SD 61.7 fl (35.1-43.9); Red Blood Count 2.79 M/mm3 (4.6-6.2); White Blood Count 12.6 K/mm3 (4.4-11.0)
[2025-01-08] MEDS: 0.9% Saline Lock 10 ML Syringe IV (06:06)
[2025-01-08 06:17] LABS: Anion Gap 15 (5-15); BUN 36 mg/dL (4-19); BUN/Creat Ratio 18.0 RATIO (10-20); Calcium,Total 9.3 mg/dL (7.6-11.0); Carbon Dioxide 21.0 mmol/L (21.0-32.0); Chloride 103 mmol/L (98-108); Estimated Creatinine Clearance 38.41 ml/min (50-250); Glucose 244 mg/dL (70-99); Potassium 4.7 mmol/L (3.3-5.1)
[2025-01-08 06:19] LABS: Differential Indicated MANUAL DIFF
[2025-01-08 06:56] LABS: Neutrophil-Band 37 % (0-5); Neutrophil-Segmented 48 % (47-70); Total Cells Counted 100 (MANUAL DIFF)
[2025-01-08 06:57] LABS: Differential Comment SCANNED
[2025-01-08 06:58] LABS: Red Cell Morphology N CYTIC NORMAL (NORM C&C)
[2025-01-08] MEDS: Budesonide Respules 0.5 MG/2 ML AMPUL.NEB. INHALATION ×2 (07:03→19:56)
[2025-01-08] MEDS: guaiFENesin/D-Methorphan TAB.SR.12H 2 TABLET PO ×2 (08:51→20:55)
--- NOTE | 2025-01-08 08:58 | PCM.PN.REN ---
Subjective Subjective no new events Objective Data Objective Data Vital Signs: Vital Signs Temp Pulse Resp BP Pulse Ox O2 Del Method O2 Flow Rate 97.5 F L 65 14 119/59 L 95 Nasal Cannula 4 01/08/25 02:45 01/08/25 07:05 01/08/25 07:05 01/08/25 02:45 01/08/25 07:05 01/08/25 07:05 01/08/25 07:05 FiO2 60 01/07/25 09:30 Oxygen Flow Rate (L/min) 4 Oxygen Delivery Method Nasal Cannula Weight: 100.5 kg Body Mass Index (BMI) 30.9 Intake & Output: Intake and Output for Last 24 Hours 01/06/25 01/07/25 01/08/25 23:59 23:59 23:59 Intake Total 290.5 / 290.5 200 / 200 100 / 100 Output Total 1125 / 1125 200 / 750 1125 / 1125 Balance -834.5 / -834.5 0 / -550 -1025 / -1025 Lab / Micro Data 01/08/25 04:58 01/08/25 04:58 Labs: Laboratory Results - last 24 hr 01/07/25 12:47: POC Glucose 155 H 01/07/25 13:00: NT pro BNP II 6130 H, Procalcitonin 0.16 H, Rheumatoid Factor 15.9 H, HANSEL-1 Antibody TNP, Sm (Crook) Antibody TNP, CARDIAC SPECIALIST Antibody TNP, Scl-70 Scleroderma Ab TNP, Antichromatin Antibodies TNP, Centromere B Antibody TNP 01/07/25 17:27: POC Glucose 99 01/07/25 21:46: POC Glucose 205 H 01/08/25 04:58: WBC 12.6 H, RBC 2.79 L, Hgb 8.5 L, Hct 27.3 L, MCV 97.8 H, MCH 30.5, MCHC 31.1 L D, RDW Std Deviation 61.7 H, RDW Coeff of Rafael 17.2 H, Plt Count 420, MPV 10.6, Neut % (Auto) Not Reportable, Absolute Neuts (auto) 10.7 H, Absolute Lymphs (auto) 1.25, Total Counted 100, Neutrophils % (Manual) 48, Band Neutrophils % 37 H, Lymphocytes % (Manual) 10 L, Metamyelocytes % 2 H, Myelocytes % 2 H, Promyelocytes % 1 H, Differential Comment SCANNED, Platelet Estimate SLT INC, RBC Morphology N CYTIC, Sodium 139, Potassium 4.7, Chloride 103, Carbon Dioxide 21.0, Anion Gap 15, BUN 36 H, Creatinine 2.00 H, Estim Creat Clear Calc 38.41 L, Est GFR (MDRD) Non-Af 34 L, BUN/Creatinine Ratio 18.0, Glucose 244 H, Calcium 9.3 Micro: Microbiology 01/07/25 10:55 Mucosa - Nasopharyngeal SARS-CoV-2, Influenza & RSV (PCR) - Final 01/04/25 09:32 Blood Culture (Wb) - Right Hand Blood Culture - Preliminary No growth in 48 hours. 01/05/25 19:00 Urine, Clean Catch Legionella Antigen - Final 01/05/25 09:33 Mucosa - Nasopharyngeal Respiratory Panel (PCR) - Final 12/30/24 12:12 Blood Culture (Wb) - Anticubital Right Blood Culture - Final No growth in 5 days. 12/30/24 12:27 Blood Culture (Wb) - Left Hand Blood Culture - Final No growth in 5 days. 01/04/25 11:16 Stool Clostridioides difficile (PCR) - Final 01/01/25 17:30 Sputum, Expectorated/Coughed Gram Stain - Final 01/01/25 17:30 Sputum, Expectorated/Coughed Respiratory Culture - Final Presumptive C albicans 12/31/24 09:40 Urine, Clean Catch Urine Culture - Final Yeast, not Elisha albicans 12/30/24 14:15 Mucosa - Nasopharyngeal SARS-CoV-2, Influenza & RSV (PCR) - Final 12/24/24 23:21 Blood Culture (Wb) - Anticubital Left Blood Culture - Final No growth in 5 days. 12/25/24 00:33 Blood Culture (Wb) - Right Forearm Blood Culture - Final No growth in 5 days. 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 resistant Staph. aureus 12/25/24 01:25 Urine, Clean Catch Legionella Antigen - Final 12/25/24 01:25 Urine, Clean Catch Streptococcus pneumoniae Antigen (M - Final 12/24/24 23:30 Mucosa - Nose SARS-CoV-2, Influenza & RSV (PCR) - Final ABG Data ABG results: ABG 01/07/25 13:27 Specimen Type ART Sample Site R Radial pH 7.41 Bicarbonate Actual 22.9 Total CO2 24 Base Excess -2 O2 Saturation 97 O2 % 60.0 ABG pCO2 36.5 ABG pO2 85 O2 Delivery Device CPAP Vent Mode Not entered Clinical Comments [facility] Radiography Diagnostic Testing: Radiology Impression Chest X-Ray 01/07/25 14:00 IMPRESSION: Small bilateral pleural effusions with bibasilar atelectasis. Reading Location: [place] [id number] Rhythm Strip Rhythm Strip: currently sinus Physical Exam Narrative Alert, awake & oriented x 3 no obvious distress s1s2 no murmurs lungs clear anteriorly, diminished breath sounds posterior bases. No wheezes, rhonchi or rales noted. On O2 nasal cannula 5 L abdomen soft No edema Assessment & Plan Assessment/Plan (1) Chronic kidney disease, stage 3b: PLAN: In July of this year, creatinine was close to 1.4-1.5 range. Over the last 2 to 3 months, creatinine has been between 1.8-2.0. Urine analysis appears to be fairly concentrated, 1+ protein, glycosuria from SGLT2 inhibitor, some cells. CT abdomen without any hydronephrosis. He says he was struggling with lower extremity edema, has been on diuretics as outpatient. Presented with shortness of breath, suspected to be from pneumonia, likely some component of fluid overload as well. CT chest reviewed, possible edema pattern. Okay to continue IV Lasix for now. Change in creatinine is likely hemodynamic shifts from ongoing diuresis. Will continue to follow. 01/05/2025: Overall renal function remains stable. Creatinine 2.1 yesterday, today serum creatinine 1.97. On Bumex 1 mg IV twice daily, Aldactone 25 mg daily. Per cumulative I&O net negative at least [address] noncontrast chest, abdomen and pelvis showed small bilateral pleural effusions, infiltrates slightly worse on left side. On IV antibiotics. Will continue with diuretics as ordered. Labs ordered for morning. Assessment and plan reviewed with Dr. Lopez. 01/06/2025; renal function remaining stable, today creatinine 1.88 mg/dL. Serum creatinine peaked 2.15 on 01/02. Remains on Bumex 1 mg IV twice daily and Aldactone 25 mg daily. Weights down. O2 requirement has improved. Continue with diuretics as ordered. Labs ordered for morning. Discussed nephrology plan with Dr. Sharp. 01/07/25. cr stable overall. breathing better. this is a note for 01/07/25. late entry
[2025-01-08] MEDS: Meropenem 1 GM in 0.9% Normal Saline (100mL MB+) 100 ML IV ×2 (09:14→20:56)
--- NOTE | 2025-01-08 12:56 | PCM.PN.HOSP ---
Reason for Visit Chief Complaint: Dyspnea, increased hypoxia/oxygen needs, URI sxs, subjective F/C. Objective Data Objective Data Vital Signs: Vital Signs Temp Pulse Resp BP Pulse Ox O2 Del Method O2 Flow Rate 97.5 F L 72 16 117/65 97 Nasal Cannula 4 01/08/25 09:01 01/08/25 09:01 01/08/25 09:01 01/08/25 09:01 01/08/25 09:01 01/08/25 10:00 01/08/25 10:00 FiO2 60 01/07/25 09:30 Oxygen Flow Rate (L/min) 4 Oxygen Delivery Method Nasal Cannula Weight: 221 lb 9.033 oz Body Mass Index (BMI) 30.9 Intake & Output: Intake and Output for Last 24 Hours 01/06/25 01/07/25 01/08/25 23:59 23:59 23:59 Intake Total 290.5 / 290.5 200 / 200 200 / 200 Output Total 1125 / 1125 200 / 750 1125 / 1125 Balance -834.5 / -834.5 0 / -550 -925 / -925 Lab / Micro Data 01/08/25 04:58 01/08/25 04:58 Labs: Laboratory Results - last 24 hr 01/07/25 12:47: POC Glucose 155 H 01/07/25 13:00: NT pro BNP II 6130 H, Procalcitonin 0.16 H, Rheumatoid Factor 15.9 H, HANSEL-1 Antibody TNP, Sm (Crook) Antibody TNP, CRA OFFICER Antibody TNP, Scl-70 Scleroderma Ab TNP, Antichromatin Antibodies TNP, Centromere B Antibody TNP 01/07/25 17:27: POC Glucose 99 01/07/25 21:46: POC Glucose 205 H 01/08/25 04:58: WBC 12.6 H, RBC 2.79 L, Hgb 8.5 L, Hct 27.3 L, MCV 97.8 H, MCH 30.5, MCHC 31.1 L D, RDW Std Deviation 61.7 H, RDW Coeff of Rafael 17.2 H, Plt Count 420, MPV 10.6, Neut % (Auto) Not Reportable, Absolute Neuts (auto) 10.7 H, Absolute Lymphs (auto) 1.25, Total Counted 100, Neutrophils % (Manual) 48, Band Neutrophils % 37 H, Lymphocytes % (Manual) 10 L, Metamyelocytes % 2 H, Myelocytes % 2 H, Promyelocytes % 1 H, Differential Comment SCANNED, Platelet Estimate SLT INC, RBC Morphology N CYTIC, Sodium 139, Potassium 4.7, Chloride 103, Carbon Dioxide 21.0, Anion Gap 15, BUN 36 H, Creatinine 2.00 H, Estim Creat Clear Calc 38.41 L, Est GFR (MDRD) Non-Af 34 L, BUN/Creatinine Ratio 18.0, Glucose 244 H, Calcium 9.3 01/08/25 08:48: POC Glucose 240 H Micro: Microbiology 01/07/25 10:55 Mucosa - Nasopharyngeal SARS-CoV-2, Influenza & RSV (PCR) - Final 01/04/25 09:32 Blood Culture (Wb) - Right Hand Blood Culture - Preliminary No growth in 48 hours. 01/05/25 19:00 Urine, Clean Catch Legionella Antigen - Final 01/05/25 09:33 Mucosa - Nasopharyngeal Respiratory Panel (PCR) - Final 12/30/24 12:12 Blood Culture (Wb) - Anticubital Right Blood Culture - Final No growth in 5 days. 12/30/24 12:27 Blood Culture (Wb) - Left Hand Blood Culture - Final No growth in 5 days. 01/04/25 11:16 Stool Clostridioides difficile (PCR) - Final 01/01/25 17:30 Sputum, Expectorated/Coughed Gram Stain - Final 01/01/25 17:30 Sputum, Expectorated/Coughed Respiratory Culture - Final Presumptive C albicans 12/31/24 09:40 Urine, Clean Catch Urine Culture - Final Yeast, not Elisha albicans 12/30/24 14:15 Mucosa - Nasopharyngeal SARS-CoV-2, Influenza & RSV (PCR) - Final 12/24/24 23:21 Blood Culture (Wb) - Anticubital Left Blood Culture - Final No growth in 5 days. 12/25/24 00:33 Blood Culture (Wb) - Right Forearm Blood Culture - Final No growth in 5 days. 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 resistant Staph. aureus 12/25/24 01:25 Urine, Clean Catch Legionella Antigen - Final 12/25/24 01:25 Urine, Clean Catch Streptococcus pneumoniae Antigen (M - Final 12/24/24 23:30 Mucosa - Nose SARS-CoV-2, Influenza & RSV (PCR) - Final ABG Data ABG results: ABG 01/07/25 13:27 Specimen Type ART Sample Site R Radial pH 7.41 Bicarbonate Actual 22.9 Total CO2 24 Base Excess -2 O2 Saturation 97 O2 % 60.0 ABG pCO2 36.5 ABG pO2 85 O2 Delivery Device CPAP Vent Mode Not entered Clinical Comments [facility] Radiography Diagnostic Testing: Radiology Impression Chest X-Ray 01/07/25 14:00 IMPRESSION: Small bilateral pleural effusions with bibasilar atelectasis. Reading Location: [facility] Rhythm Strip Rhythm Strip: currently sinus Physical Exam Narrative Seen and examined He did not had any fever last night, not feeling chills or rigors. Patient subjectively feeling improvement in shortness of breath. Physical exam General: Alert, Oriented x3, Cooperative. BMI 30.8 kg/m? HEENT: Atraumatic, PERRLA, EOMI, Normocephalic. Oral: No Gingival or Mucosal Lesions/ Ulcerations Neck: Supple, No JVD, Negative Carotid Bruits Chest wall/Lungs: Air entry diminished in all lung luu. Mild coarse crepitation bilateral. On 4 L oxygen. Cardiovascular: Regular rate and rhythm, Normal S1,S2, systolic murmur Abdomen: Bowel Sounds Present, Soft, Non Tender, Non-Distended : No dysuria. No renal angle tenderness. No suprapubic tenderness. Extremities: Mild chronic edema, Capillary Refill Less than 3 Seconds Skin: No rashes, No breakdown Musculoskeletal: No Tenderness to Palpation of Joints or Extremities. ROM restricted Neurological: Cranial nerves II-XII grossly intact, DTR 2+/4. No acute focal neurological deficit. Psych/Mental Status: Flat affect. Assessment & Plan Assessment/Plan (1) Pneumonia: PLAN: Plan Patient is a 74-year-old male who presented to [facility] ED on 12/25/[facility]24 with shortness of breath, URI symptoms and fever/chills. 1. Acute on Chronic Hypoxic and Hypercarbic Respiratory Failure secondary to bilateral MRSA pneumonia Home O2 requirements verified by CM: 4 L at rest, 6 L with exertion, 3 L at night Chest CTAshows bilateral patchy ground glass opacities/acinar densities predominantly right upper lobe. Bilateral pulmonary atelectatic changes with lower lobe bronchial wall thickening. PE ruled out. Pneumonia workup shows respiratory panel and urinary antigens are negative. Triple PCR for SARS-CoV-2, flu and RSV are negative. Nasal MRSA screen positive. SCx positive for MRSA. Patient empirically on IV vancomycin and pip/tazo during admission. Zosyn was changed to Unasyn with intention to narrow down the antibiotic on 12/26. With intermittent fever, ID changed Unasyn to Zosyn on 12/30 01/03: Patient is still having fever Tmax 100.2 Fahrenheit. On 6 L of oxygen 01/04: Patient had fever last night and in the morning was having chills, temperature 99.3 ?F. ID follow-up appreciated. Repeat CT was ordered on 01/04 which shows small bilateral effusion with bibasilar atelectasis and slightly worse infiltrates on the left side. Bumex dose increased to 1 mg IV twice daily for diuresis. On Vanco Zosyn and Diflucan. 01/05: CT reviewed and shows small bilateral pleural effusion but no acute change which can be attributed to fever. C. difficile test is negative. Respiratory panel ordered. On 6 L of oxygen. 01/06: Overall patient subjectively and objectively looks better in regards to shortness of breath. No fever. Tmax 99.8 Fahrenheit. Encouraged incentive spirometry and PEP. 01/07: Patient is spiked fever again 101.4 fever. Leukocytosis 14.9 K. Patient has leukocytosis; not consistent pattern, went to zenith 15.2 and now gradually decreasing. Patient has been having intermittent fever once a day for last 3 to 4 days except yesterday. ID recommended pulmonary consult. Pulmonary consult appreciated. Possibility of noninfectious cause of fever as patient is appropriately covered with antibiotics under the guidance of ID. Autoimmune serologies were ordered. ABG and chest x-ray. IV Solu-Medrol 40 mg Q6 hourly. Rechecked COVID influenza and RSV PCR. Diuresis as per tolerated 01/08: Patient did not had fever last night. Overall doing better on the IV Solu-Medrol. Less dyspnea at rest. 2. MRSA pneumonia continue vanc and pip/tazo. Pt with ongoing symptoms. Will continue to monitor while inpatient. ID following and ordered blood cultures on 12/30. Reviewed, still negative. Will continue antibiotics through tomorrow, appreciate further ID recs. 01/03: ID follow-up reviewed. Sputum culture negative so far. Urine culture Enterococcus but not in pathology range. Ongoing fever therefore vancomycin changed to IV Zosyn on 12/30. Sputum culture and urine culture with yeast, fluconazole added. 01/06: Was changed from Vanco Unasyn to Vanco Zosyn on 12/30. Flucaine was added on 01/03. On 01/04 respiratory panel negative. 01/05: Antibiotic changed to doxycycline meropenem and fluconazole. Venous duplex completed, not reported yet. 01/07: Tmax 101.4 Fahrenheit, yesterday about 8:30 PM 3. UTI ruled out: Urine culture growing GPC Enterococcus (25,000 and yeastlike organism) from 12/25. Repeat urine culture shows Elisha albicans 4. CAD: s/p LAD, RCA (2001) and L circumflex (2013), chronic HFrEF, chronic atrial fibrillation: Most recent echocardiogram 08/23/2024 with EF 25 to 30%, severe LV systolic dysfunction, no significant change from previous echocardiogram 05/2024 with EF at that time 25%. Continue Coreg, statin therapy. It seems patient is not on baby aspirin probably due to GI bleed. Baby aspirin started as patient is high risk for cardiac complications including TN and stroke. Patient not on MEDHAT or ARB. Bumex 0.5 mg oral changed to IV and Jardiance resumed. 01/07: Bumex 1 mg twice daily since 01/04 and patient tolerating well. On Aldactone 25 mg daily creatinine went up today more from 1.88-2.04. 5. Chronic macrocytic anemia/Fe deficiency anemia complicated by history of significant recurrent GI bleeds w/ AVMs: Admission hemoglobin 9.2, MCV 97.6, baseline hemoglobin 8-10, stable, continue to trend. Continue PPI iron supplementation. Following Hematology, most recent visit noted 12/06/24. 01/03: H&H dropped to 7.0/22.4%. Platelet count normal. Monitor H&H in the evening today. Hold baby aspirin and heparin subcu. 01/05: Hemoglobin is still low about 7.6 g%. Platelet count normal. 01/07: H&H 8.2/24.8%. Platelet count 3 90K. 01/08: H&H also similar to yesterday. 6 Hx VTE, DVT and BL PE: Most recent event 07/2021 BL PE, prior DVT, history of significant GI bleeds status post IVC filter placement. 7. Diabetes mellitus type II: Will hold oral regimen, continue long-acting insulin regimen, will maintain on ADA diet, accu checks with ISS. 8. Rheumatoid arthritits: Previously on rituximab and prior also noted to have been on low dose prednisone, will clarify if currently ongoing but may have been discontinued given GI bleed issues. 9. Hypertension: Continue home Coreg, Spironolactone, Lasix with hold parameters as needed given low-normal BP in the ED, PRN hydralazine. 10. Hyperlipidemia: Continue home statin therapy. 11. History of non-Hodgkin's lymphoma: Considered in remission, s/p ABVD and radiation 2010, encourage continued outpatient follow-up with oncology as previously arranged or needed. 12 anxiety and depression: continue patient home escitalopram and mirtazapine regimen. 13 BPH with obstructive pathology: continue patient home finasteride and Flomax regimen. 14. Chronic Kidney Disease Stage IIIb: Admission BUN/Cr 50/2.04, GFR 33, baseline renal function more recently 1.7-2.7, seems to vacillate, most recently 12/06/2024 creatinine 2.70, repeat BMP in AM to elucidate current baseline. 12/26: Patient creatinine slightly better, 1.8 today. Baseline Bumex 0.5 mg IV resumed. 01/02: Creatinine 2.15, slightly up from previous days at 1.8-1.9. 01/03: BUN/creatinine 34/2.05. No significant change. 01/07: Creatinine is similar in last 2 days 15. GERD with history of significant recurrent GI bleeds with AVMs: Will continue patient on PPI, as noted above #4. DVT prophylaxis: Heparin cautiously. 01/05: Heparin was discontinued because of severe anemia. Bilateral SCDs Code status: DNRCCA, DNI Disposition: to SNF to [facility] when medically stable. Says patient's pre-CERT labs in 1 days therefore when patient is medically ready then needs to apply pre-CERT. Discussed with the case monitor Total time of the visit including total time spent in counseling or coordination of care, (more than 50% of the total time, spent in obtaining medical information from nurses and other ancillary care providers ,explaining to the patient about labs, imaging, diagnosis and management of active complex medical conditions), , review of labs and imaging is 35 minutes. Microbiology Past 72 Hours 01/07/25 10:55 Mucosa - Nasopharyngeal SARS-CoV-2, Influenza & RSV (PCR) - Final 01/04/25 09:32 Blood Culture (Wb) - Right Hand Blood Culture - Preliminary No growth in 48 hours. 01/05/25 19:00 Urine, Clean Catch Legionella Antigen - Final 01/05/25 09:33 Mucosa - Nasopharyngeal Respiratory Panel (PCR) - Final Laboratory Results 01/07/25 12:47: POC Glucose 155 H 01/07/25 13:00: NT pro BNP II 6130 H, Procalcitonin 0.16 H, Rheumatoid Factor 15.9 H, Cycl Citrul Peptide IgG Pending, KYLEE Screen Pending, c-ANCA Antibody Pending, p-ANCA Antibody Pending, HANSEL-1 Antibody TNP, SS-A/Ro IgG Antibody Pending, SS-B/La IgG Antibody Pending, Sm (Crook) Antibody TNP, CRA OFFICER Antibody TNP, Scl-70 Scleroderma Ab TNP, Double Strand DNA Ab Pending, Antichromatin Antibodies TNP, Centromere B Antibody TNP 01/07/25 13:27: Specimen Type ART, Sample Site R Radial, pH 7.41, Bicarbonate Actual 22.9, Total CO2 24, Base Excess -2, O2 Saturation 97, O2 % 60.0, ABG pCO2 36.5, ABG pO2 85, O2 Delivery Device CPAP, Vent Mode Not entered, Clinical Comments [facility] 01/07/25 17:27: POC Glucose 99 01/07/25 21:46: POC Glucose 205 H 01/08/25 04:58: WBC 12.6 H, RBC 2.79 L, Hgb 8.5 L, Hct 27.3 L, MCV 97.8 H, MCH 30.5, MCHC 31.1 L D, RDW Std Deviation 61.7 H, RDW Coeff of Rafael 17.2 H, Plt Count 420, MPV 10.6, Neut % (Auto) Not Reportable, Absolute Neuts (auto) 10.7 H, Absolute Lymphs (auto) 1.25, Total Counted 100, Neutrophils % (Manual) 48, Band Neutrophils % 37 H, Lymphocytes % (Manual) 10 L, Metamyelocytes % 2 H, Myelocytes % 2 H, Promyelocytes % 1 H, Differential Comment SCANNED, Platelet Estimate SLT INC, RBC Morphology N CYTIC, Sodium 139, Potassium 4.7, Chloride 103, Carbon Dioxide 21.0, Anion Gap 15, BUN 36 H, Creatinine 2.00 H, Estim Creat Clear Calc 38.41 L, Est GFR (MDRD) Non-Af 34 L, BUN/Creatinine Ratio 18.0, Glucose 244 H, Calcium 9.3 01/08/25 08:48: POC Glucose 240 H Clinical Impression(s) from Imaging Studies Chest X-Ray 12/24/24 23:36 IMPRESSION: Minimal bilateral basilar atelectatic pulmonary changes. Reading Location: [place] [id number] Chest CTA 12/25/24 00:05 IMPRESSION: No evidence of pulmonary arterial thromboembolism. Cardiomegaly. Bilateral pulmonary patchy ground glass opacities and acinar densities, most evidently involving the right upper lung lobe, possibly infectious. Bilateral pulmonary atelectatic changes with predominantly lower lobar bronchial wall thickening No obvious pulmonary masses or consolidations. Reading Location: [place] [address] Chest X-Ray 12/27/24 06:37 IMPRESSION: There is mild cardiomegaly. There is blunting of the costophrenic angle on the right and left consistent with trace effusions. Reading Location: [facility] Chest X-Ray 12/30/24 11:05 IMPRESSION: Stable mild cardiomegaly and mild pulmonary vascular congestion. Reading [facility] Chest/Abdomen/Pelvis CT 01/04/25 09:31 IMPRESSION: Small bilateral pleural effusions with bibasilar atelectasis and/or slightly infiltrates slightly worse on the left side. Reading Location: [id number] Charges/Coding Visit Charges Inpatient E&M: 82930 Subs Hosp L2
[2025-01-08] MEDS: Insulin Glargine-YFGN 100 UNIT/ML Pen 15 UNIT SC (20:56)
[2025-01-09] VITALS (8 sets, daily range): BP systolic 107–120; BP diastolic 58–69; PULSE 59–82; RESP 16–18; TEMP 36.1–36.6; O2SAT 92–99; BMI 30.4
[2025-01-09] MEDS: 0.9% Saline Lock 10 ML Syringe IV ×3 (00:06→23:51)
[2025-01-09] MEDS: Budesonide Respules 0.5 MG/2 ML AMPUL.NEB. INHALATION ×2 (06:45→19:18)
--- NOTE | 2025-01-09 07:57 | PN.RENAL_ITS ---
Subjective Subjective Following for CKD. Patient reports that his appetite is picking up. There has been no nausea, vomiting or diarrhea. Dyspnea has improved. There is no chest pain. Objective Data Objective Data Vital Signs: Vital Signs Temp Pulse Resp BP Pulse Ox O2 Del Method O2 Flow Rate 96.9 F L 82 16 116/58 L 92 Nasal Cannula 4 01/09/25 05:00 01/09/25 06:46 01/09/25 06:46 01/09/25 05:00 01/09/25 06:46 01/09/25 06:46 01/09/25 06:46 FiO2 60 01/07/25 09:30 Oxygen Flow Rate (L/min) 4 Oxygen Delivery Method Nasal Cannula Weight: 99 kg Body Mass Index (BMI) 30.4 Intake & Output: Intake and Output for Last 24 Hours 01/07/25 01/08/25 01/09/25 23:59 23:59 23:59 Intake Total 200 / 200 287.45 / 287.45 50 / 50 Output Total 200 / 750 1125 / 2375 1450 / 1450 Balance 0 / -550 -837.55 / -2087.55 -1400 / -1400 Lab / Micro Data 01/08/25 04:58 01/08/25 04:58 Labs: Laboratory Results - last 24 hr 01/08/25 08:48: POC Glucose 240 H 01/08/25 12:42: POC Glucose 322 H 01/08/25 17:08: POC Glucose 378 H 01/08/25 20:54: POC Glucose 292 H Micro: Microbiology 01/07/25 10:55 Mucosa - Nasopharyngeal SARS-CoV-2, Influenza & RSV (PCR) - Final 01/04/25 09:32 Blood Culture (Wb) - Right Hand Blood Culture - Preliminary No growth in 48 hours. 01/05/25 19:00 Urine, Clean Catch Legionella Antigen - Final 01/05/25 09:33 Mucosa - Nasopharyngeal Respiratory Panel (PCR) - Final 12/30/24 12:12 Blood Culture (Wb) - Anticubital Right Blood Culture - Final No growth in 5 days. 12/30/24 12:27 Blood Culture (Wb) - Left Hand Blood Culture - Final No growth in 5 days. 01/04/25 11:16 Stool Clostridioides difficile (PCR) - Final 01/01/25 17:30 Sputum, Expectorated/Coughed Gram Stain - Final 01/01/25 17:30 Sputum, Expectorated/Coughed Respiratory Culture - Final Presumptive C albicans 12/31/24 09:40 Urine, Clean Catch Urine Culture - Final Yeast, not Elisha albicans 12/30/24 14:15 Mucosa - Nasopharyngeal SARS-CoV-2, Influenza & RSV (PCR) - Final 12/24/24 23:21 Blood Culture (Wb) - Anticubital Left Blood Culture - Final No growth in 5 days. 12/25/24 00:33 Blood Culture (Wb) - Right Forearm Blood Culture - Final No growth in 5 days. 12/25/24 01:25 Urine, Clean Catch Urine Culture - Final Enterococcus faecalis Yeast, not Elisha albicans GNR lactose technical sales support specialist 12/25/24 20:10 Sputum, Expectorated/Coughed Gram Stain - Final 12/25/24 20:10 Sputum, Expectorated/Coughed Respiratory Culture - Final Presumptive C albicans 12/25/24 04:56 Mucosa - Nasopharyngeal Respiratory Panel (PCR) - Final 12/25/24 04:00 Nasal Secretion MRSA (PCR) - Final Meth. resistant Staph. aureus 12/25/24 01:25 Urine, Clean Catch Legionella Antigen - Final 12/25/24 01:25 Urine, Clean Catch Streptococcus pneumoniae Antigen (M - Final 12/24/24 23:30 Mucosa - Nose SARS-CoV-2, Influenza & RSV (PCR) - Final Rhythm Strip Rhythm Strip: currently sinus Physical Exam Narrative Alert, awake & oriented x 3 no obvious distress s1s2 no murmurs lungs clear anteriorly, diminished breath sounds posterior bases. No wheezes, rhonchi or rales noted. On O2 nasal cannula 5 L abdomen soft Trace lower extremity edema Assessment & Plan Assessment/Plan (1) Chronic kidney disease, stage 3b: PLAN: Assessment/Plan: Patient is a 74-year-old male with past history of CKD stage G3b, type 2 diabetes mellitus, hypertension, CAD status post ME, ischemic cardiomyopathy with HFrEF (EF 25 to 30% on echocardiogram from 08/23/2024), COPD, pulmonary embolism, non-Hodgkin lymphoma, BPH, rheumatoid arthritis, major depressive disorder, generalized anxiety disorder and hyperlipidemia. Patient presented to hospital on 12/25/2024 with 3-day history of dyspnea, fever/chill. Patient was found to have CAP and is being treated with antibiotic for MRSA pneumonia. Nephrology is following for CKD stage G3b. Chronic kidney disease stage G3b. In July of this year, creatinine was close to 1.4-1.5 range. Over the last 2 to 3 months, creatinine has been between 1.8-2.0. Urinalysis appears to be fairly concentrated, 1+ protein, glycosuria from SGLT2 inhibitor, some cells. CT abdomen without any hydronephrosis. Renal function has been stable around his usual baseline during this admission. Serum creatinine from 01/08/2025 is stable at 2.00 mg/dL despite continuation of IV bumetanide. Okay to continue IV bumetanide today. His weight is still above usual baseline of around 91 to 95 kg. We can consider transitioning patient to oral bumetanide in the next 24 to 48 hours. Will continue to monitor renal function, volume status, acid-base and electrolytes.
[2025-01-09] MEDS: guaiFENesin/D-Methorphan TAB.SR.12H 2 TABLET PO ×2 (08:51→20:30)
[2025-01-09] MEDS: Meropenem 1 GM in 0.9% Normal Saline (100mL MB+) 100 ML IV ×2 (08:58→20:29)
--- NOTE | 2025-01-09 13:29 | PN.HOSP_ITS ---
Reason for Visit Chief Complaint: Dyspnea, increased hypoxia/oxygen needs, URI sxs, subjective F/C. Objective Data Objective Data Vital Signs: Vital Signs Temp Pulse Resp BP Pulse Ox O2 Del Method O2 Flow Rate 97.6 F L 64 16 111/64 93 Nasal Cannula 3 01/09/25 08:43 01/09/25 13:10 01/09/25 13:10 01/09/25 08:43 01/09/25 13:10 01/09/25 13:10 01/09/25 13:10 FiO2 98 01/09/25 08:02 Oxygen Flow Rate (L/min) 3 Oxygen Delivery Method Nasal Cannula Weight: 218 lb 4.122 oz Body Mass Index (BMI) 30.4 Intake & Output: Intake and Output for Last 24 Hours 01/07/25 01/08/25 01/09/25 23:59 23:59 23:59 Intake Total 200 / 200 287.45 / 287.45 450 / 450 Output Total 200 / 750 1125 / 2375 1850 / 1850 Balance 0 / -550 -837.55 / -2087.55 -1400 / -1400 Lab / Micro Data 01/08/25 04:58 01/08/25 04:58 Labs: Laboratory Results - last 24 hr 01/08/25 17:08: POC Glucose 378 H 01/08/25 20:54: POC Glucose 292 H 01/09/25 07:39: POC Glucose 374 H 01/09/25 11:19: POC Glucose 373 H Micro: Microbiology 01/04/25 09:32 Blood Culture (Wb) - Right Hand Blood Culture - Final No growth in 5 days. 01/07/25 10:55 Mucosa - Nasopharyngeal SARS-CoV-2, Influenza & RSV (PCR) - Final 01/05/25 19:00 Urine, Clean Catch Legionella Antigen - Final 01/05/25 09:33 Mucosa - Nasopharyngeal Respiratory Panel (PCR) - Final 12/30/24 12:12 Blood Culture (Wb) - Anticubital Right Blood Culture - Final No growth in 5 days. 12/30/24 12:27 Blood Culture (Wb) - Left Hand Blood Culture - Final No growth in 5 days. 01/04/25 11:16 Stool Clostridioides difficile (PCR) - Final 01/01/25 17:30 Sputum, Expectorated/Coughed Gram Stain - Final 01/01/25 17:30 Sputum, Expectorated/Coughed Respiratory Culture - Final Presumptive C albicans 12/31/24 09:40 Urine, Clean Catch Urine Culture - Final Yeast, not Elisha albicans 12/30/24 14:15 Mucosa - Nasopharyngeal SARS-CoV-2, Influenza & RSV (PCR) - Final 12/24/24 23:21 Blood Culture (Wb) - Anticubital Left Blood Culture - Final No growth in 5 days. 12/25/24 00:33 Blood Culture (Wb) - Right Forearm Blood Culture - Final No growth in 5 days. 12/25/24 01:25 Urine, Clean Catch Urine Culture - Final Enterococcus faecalis Yeast, not Elisha albicans GNR lactose inspector optical instrument 12/25/24 20:10 Sputum, Expectorated/Coughed Gram Stain - Final 12/25/24 20:10 Sputum, Expectorated/Coughed Respiratory Culture - Final Presumptive C albicans 12/25/24 04:56 Mucosa - Nasopharyngeal Respiratory Panel (PCR) - Final 12/25/24 04:00 Nasal Secretion MRSA (PCR) - Final Meth. resistant Staph. aureus 12/25/24 01:25 Urine, Clean Catch Legionella Antigen - Final 12/25/24 01:25 Urine, Clean Catch Streptococcus pneumoniae Antigen (M - Final 12/24/24 23:30 Mucosa - Nose SARS-CoV-2, Influenza & RSV (PCR) - Final Rhythm Strip Rhythm Strip: currently sinus Physical Exam Narrative Seen and examined Patient is doing better and improving. Last fever 101.4 Fahrenheit on 01/06 about 8:30 PM. Patient subjectively feels shortness of breath better, stood up and walked yesterday. Currently on 3 L of oxygen. Physical exam General: Alert, Oriented x3, Cooperative. BMI 30.8 kg/m? HEENT: Atraumatic, PERRLA, EOMI, Normocephalic. Oral: No Gingival or Mucosal Lesions/ Ulcerations Neck: Supple, No JVD, Negative Carotid Bruits Chest wall/Lungs: Air entry diminished in all lung luu. Mild lower lungs crepitations on 3 L oxygen. No tachypnea. Cardiovascular: Regular rate and rhythm, Normal S1,S2, systolic murmur Abdomen: Bowel Sounds Present, Soft, Non Tender, Non-Distended : No dysuria. No renal angle tenderness. No suprapubic tenderness. Extremities: Mild chronic edema, Capillary Refill Less than 3 Seconds Skin: No rashes, No breakdown Musculoskeletal: No Tenderness to Palpation of Joints or Extremities. ROM restricted Neurological: Cranial nerves II-XII grossly intact, DTR 2+/4. No acute focal neurological deficit. Psych/Mental Status: Flat affect. Assessment & Plan Assessment/Plan (1) Pneumonia: PLAN: Plan Patient is a 74-year-old male who presented to [facility] ED on 12/25/2024 with shortness of breath, URI symptoms and fever/chills. 1. Acute on Chronic Hypoxic and Hypercarbic Respiratory Failure secondary to bilateral MRSA pneumonia * Home O2 requirements verified by CM: 4 L at rest, 6 L with exertion, 3 L at night * Chest CTAshows bilateral patchy ground glass opacities/acinar densities predominantly right upper lobe. Bilateral pulmonary atelectatic changes with lower lobe bronchial wall thickening. PE ruled out. * Pneumonia workup shows respiratory panel and urinary antigens are negative. Triple PCR for SARS-CoV-2, flu and RSV are negative. Nasal MRSA screen positive. SCx positive for MRSA. * Patient empirically on IV vancomycin and pip/tazo during admission. Zosyn was changed to Unasyn with intention to narrow down the antibiotic on 12/26. With intermittent fever, ID changed Unasyn to Zosyn on 12/30 01/03: Patient is still having fever Tmax 100.2 Fahrenheit. On 6 L of oxygen 01/04: Patient had fever last night and in the morning was having chills, temperature 99.3 ?F. ID follow-up appreciated. Repeat CT was ordered on 01/04 which shows small bilateral effusion with bibasilar atelectasis and slightly worse infiltrates on the left side. Bumex dose increased to 1 mg IV twice daily for diuresis. On Vanco Zosyn and Diflucan. 01/05: CT reviewed and shows small bilateral pleural effusion but no acute change which can be attributed to fever. C. difficile test is negative. Respiratory panel ordered. On 6 L of oxygen. 01/06: Overall patient subjectively and objectively looks better in regards to shortness of breath. No fever. Tmax 99.8 Fahrenheit. Encouraged incentive spirometry and PEP. 01/07: Patient is spiked fever again 101.4 fever. Leukocytosis 14.9 K. Patient has leukocytosis; not consistent pattern, went to zenith 15.2 and now gradually decreasing. Patient has been having intermittent fever once a day for last 3 to 4 days except yesterday. ID recommended pulmonary consult. Pulmonary consult appreciated. Possibility of noninfectious cause of fever as patient is appropriately covered with antibiotics under the guidance of ID. Autoimmune serologies were ordered. ABG and chest x-ray. IV Solu-Medrol 40 mg Q6 hourly. Rechecked COVID influenza and RSV PCR. Diuresis as per tolerated 01/08: Patient did not had fever last night. Overall doing better on the IV Solu-Medrol. Less dyspnea at rest. 01/09: Improvement in oxygenation. Not tachypneic. Only on 3 L of oxygen. Continue IV Solu-Medrol. Continue PT OT incentive spirometry and bronchopulmonary hygiene. 2. MRSA pneumonia * continue vanc and pip/tazo. * Pt with ongoing symptoms. Will continue to monitor while inpatient. * ID following and ordered blood cultures on 12/30. Reviewed, still negative. Will continue antibiotics through tomorrow, appreciate further ID recs. 01/03: ID follow-up reviewed. Sputum culture negative so far. Urine culture Enterococcus but not in pathology range. Ongoing fever therefore vancomycin changed to IV Zosyn on 12/30. Sputum culture and urine culture with yeast, fluconazole added. 01/06: Was changed from Vanco Unasyn to Vanco Zosyn on 12/30. Flucaine was added on 01/03. On 01/04 respiratory panel negative. 01/05: Antibiotic changed to doxycycline meropenem and fluconazole. Venous duplex completed, not reported yet. 01/07: Tmax 101.4 Fahrenheit, on 01/06 about 8:30 PM 01/09: No fever for last 60 hours. ID follow-up tomorrow a.m. for antibiotics reconciliation 3. UTI ruled out: Urine culture growing GPC Enterococcus (25,000 and yeastlike organism) from 12/25. Repeat urine culture shows Elisha albicans 4. CAD: s/p LAD, RCA (2001) and L circumflex (2013), chronic HFrEF, chronic atrial fibrillation: Most recent echocardiogram 08/23/2024 with EF 25 to 30%, severe LV systolic dysfunction, no significant change from previous echocardiogram 05/2024 with EF at that time 25%. Continue Coreg, statin therapy. It seems patient is not on baby aspirin probably due to GI bleed. Baby aspirin started as patient is high risk for cardiac complications including OH and stroke. Patient not on MEDHAT or ARB. * Bumex 0.5 mg oral changed to IV and Jardiance resumed. 01/07: Bumex 1 mg twice daily since 01/04 and patient tolerating well. On Aldactone 25 mg daily creatinine went up today more from 1.88-2.04. 01/09 patient tolerating Bumex good. 5. Chronic macrocytic anemia/Fe deficiency anemia complicated by history of significant recurrent GI bleeds w/ AVMs: Admission hemoglobin 9.2, MCV 97.6, baseline hemoglobin 8-10, stable, continue to trend. Continue PPI iron supplementation. Following Hematology, most recent visit noted 12/06/24. 01/03: H&H dropped to 7.0/22.4%. Platelet count normal. Monitor H&H in the evening today. Hold baby aspirin and heparin subcu. 01/05: Hemoglobin is still low about 7.6 g%. Platelet count normal. 01/07: H&H 8.2/24.8%. Platelet count 3 90K. 01/08: H&H also similar to yesterday. 6 Hx VTE, DVT and BL PE: Most recent event 07/2021 BL PE, prior DVT, history of significant GI bleeds status post IVC filter placement. 7. Diabetes mellitus type II: Will hold oral regimen, continue long-acting insulin regimen, will maintain on ADA diet, accu checks with ISS. 8. Rheumatoid arthritits: Previously on rituximab and prior also noted to have been on low dose prednisone, will clarify if currently ongoing but may have been discontinued given GI bleed issues. 9. Hypertension: Continue home Coreg, Spironolactone, Lasix with hold parameters as needed given low-normal BP in the ED, PRN hydralazine. 10. Hyperlipidemia: Continue home statin therapy. 11. History of non-Hodgkin's lymphoma: Considered in remission, s/p ABVD and radiation 2010, encourage continued outpatient follow-up with oncology as previously arranged or needed. 12 anxiety and depression: continue patient home escitalopram and mirtazapine regimen. 13 BPH with obstructive pathology: continue patient home finasteride and Flomax regimen. 14. Chronic Kidney Disease Stage IIIb: Admission BUN/Cr 50/2.04, GFR 33, baseline renal function more recently 1.7-2.7, seems to vacillate, most recently 12/06/2024 creatinine 2.70, repeat BMP in AM to elucidate current baseline. 12/26: Patient creatinine slightly better, 1.8 today. Baseline Bumex 0.5 mg IV resumed. 01/02: Creatinine 2.15, slightly up from previous days at 1.8-1.9. 01/03: BUN/creatinine 34/2.05. No significant change. 01/07: Creatinine is similar in last 2 days 15. GERD with history of significant recurrent GI bleeds with AVMs: Will continue patient on PPI, as noted above #4. DVT prophylaxis: Heparin cautiously. 01/05: Heparin was discontinued because of severe anemia. Bilateral SCDs Code status: DNRCCA, DNI Disposition: to SNF to [facility] when medically stable. Says patient's pre-CERT labs in 1 days therefore when patient is medically ready then needs to apply pre- CERT. Discussed with the window caser. If patient continues to improve today, can apply for pre-CERT tomorrow on 01/11/2024 Total time of the visit including total time spent in counseling or coordination of care, (more than 50% of the total time, spent in obtaining medical information from nurses and other ancillary care providers ,explaining to the patient about labs, imaging, diagnosis and management of active complex medical conditions), , review of labs and imaging is 35 minutes. Microbiology Past 72 Hours 01/07/25 10:55 Mucosa - Nasopharyngeal SARS-CoV-2, Influenza & RSV (PCR) - Final 01/04/25 09:32 Blood Culture (Wb) - Right Hand Blood Culture - Preliminary No growth in 48 hours. 01/05/25 19:00 Urine, Clean Catch Legionella Antigen - Final 01/05/25 09:33 Mucosa - Nasopharyngeal Respiratory Panel (PCR) - Final Laboratory Results 01/07/25 12:47: POC Glucose 155 H 01/07/25 13:00: NT pro BNP II 6130 H, Procalcitonin 0.16 H, Rheumatoid Factor 15.9 H, Cycl Citrul Peptide IgG Pending, KYLEE Screen Pending, c-ANCA Antibody Pending, p-ANCA Antibody Pending, HANSEL-1 Antibody TNP, SS-A/Ro IgG Antibody Pending, SS-B/La IgG Antibody Pending, Sm (Crook) Antibody TNP, BUSINESS CONTINUITY MANAGER Antibody TNP, Scl-70 Scleroderma Ab TNP, Double Strand DNA Ab Pending, Antichromatin Antibodies TNP, Centromere B Antibody TNP 01/07/25 13:27: Specimen Type ART, Sample Site R Radial, pH 7.41, Bicarbonate Actual 22.9, Total CO2 24, Base Excess -2, O2 Saturation 97, O2 % 60.0, ABG pCO2 36.5, ABG pO2 85, O2 Delivery Device CPAP, Vent Mode Not entered, Clinical Comments AIRVO 01/07/25 17:27: POC Glucose 99 01/07/25 21:46: POC Glucose 205 H 01/08/25 04:58: WBC 12.6 H, RBC 2.79 L, Hgb 8.5 L, Hct 27.3 L, MCV 97.8 H, MCH 30.5, MCHC 31.1 L D, RDW Std Deviation 61.7 H, RDW Coeff of Rafael 17.2 H, Plt Count 420, MPV 10.6, Neut % (Auto) Not Reportable, Absolute Neuts (auto) 10.7 H, Absolute Lymphs (auto) 1.25, Total Counted 100, Neutrophils % (Manual) 48, Band Neutrophils % 37 H, Lymphocytes % (Manual) 10 L, Metamyelocytes % 2 H, M yelocytes % 2 H, Promyelocytes % 1 H, Differential Comment SCANNED, Platelet Estimate T INC, RBC Morphology N CYTIC, Sodium 139, Potassium 4.7, Chloride 103, Carbon Dioxide 21.0, Anion Gap 15, BUN 36 H, Creatinine 2.00 H, Estim Creat Clear Calc 38.41 L, Est GFR (MDRD) Non-Af 34 L, BUN/Creatinine Ratio 18.0, G lucose 244 H, Calcium 9.3 01/08/25 08:48: POC Glucose 240 H Clinical Impression(s) from Imaging Studies Chest X-Ray 12/24/24 23:36 IMPRESSION: Minimal bilateral basilar atelectatic pulmonary changes. Reading [facility] [place] [address] Chest CTA 12/25/24 00:05 IMPRESSION: No evidence of pulmonary arterial thromboembolism. Cardiomegaly. Bilateral pulmonary patchy ground glass opacities and acinar densities, most evidently involving the right upper lung lobe, possibly infectious. Bilateral pulmonary atelectatic changes with predominantly lower lobar bronchial wall thickening No obvious pulmonary masses or consolidations. Reading Location[facility] Chest X-Ray 12/27/24 06:37 IMPRESSION: There is mild cardiomegaly. There is blunting of the costophrenic angle on the right and left consistent with trace effusions. Reading Location[facility] Chest X-Ray 12/30/24 11:05 IMPRESSION: Stable mild cardiomegaly and mild pulmonary vascular congestion. Reading Location[facility] Chest/Abdomen/Pelvis CT 01/04/25 09:31 IMPRESSION: Small bilateral pleural effusions with bibasilar atelectasis and/or slightly infiltrates slightly worse on the left side. Reading Location: [id number] Charges/Coding Visit Charges Inpatient E&M: 37238 Subs Hosp L2
[2025-01-09] MEDS: Insulin Glargine-YFGN 100 UNIT/ML Pen 15 UNIT SC (20:30)
[2025-01-10] VITALS (13 sets, daily range): BP systolic 106–126; BP diastolic 53–63; PULSE 58–71; RESP 16–18; TEMP 36.4–36.6; O2SAT 92–98; BMI 30.6
[2025-01-10] MEDS: 0.9% Saline Lock 10 ML Syringe IV ×6 (05:31→22:13)
[2025-01-10] MEDS: Budesonide Respules 0.5 MG/2 ML AMPUL.NEB. INHALATION ×2 (06:44→21:24)
[2025-01-10 07:01] LABS: Hematocrit 25.0 % (40-54); Hemoglobin 8.1 g/dL (13.0-16.5); Mean Corp Hgb Conc 32.4 g/dL (32-36); Mean Corpuscular Volume 95.8 fL (80-94); Mean Platelet Vol. 10.9 fl (6.2-12.0); POSITIVE COUNT YES; POSITIVE MORPHOLOGY YES; Platelet Count 452 K/mm3 (150-450); RBC Distribution Width CV 16.9 % (11.6-14.6); RBC Distribution Width SD 58.9 fl (35.1-43.9); Red Blood Count 2.61 M/mm3 (4.6-6.2); White Blood Count 16.9 K/mm3 (4.4-11.0)
[2025-01-10 07:13] LABS: Differential Indicated MANUAL DIFF
[2025-01-10 07:27] LABS: Anion Gap 14 (5-15); BUN 56 mg/dL (4-19); BUN/Creat Ratio 29.6 RATIO (10-20); Calcium,Total 8.9 mg/dL (7.6-11.0); Carbon Dioxide 21.2 mmol/L (21.0-32.0); Chloride 101 mmol/L (98-108); Estimated Creatinine Clearance 40.38 ml/min (50-250); Potassium 4.4 mmol/L (3.3-5.1)
[2025-01-10 07:33] LABS: Glucose 477 mg/dL (70-99)
[2025-01-10 08:06] LABS: Neutrophil-Band 2 % (0-5); Neutrophil-Segmented 87 % (47-70); Nucleated Red Bld Cells,Manual 2 % (0-5); Total Cells Counted 100 (MANUAL DIFF)
[2025-01-10 08:07] LABS: Macrocytosis 1+; Polychromasia 1+
--- NOTE | 2025-01-10 08:15 | PN.HOSP_ITS ---
Reason for Visit Chief Complaint: Dyspnea, increased hypoxia/oxygen needs, URI sxs, subjective F/C. Subjective Subjective Feeling much better. Still coughing up some phlegm. Objective Data Objective Data Vital Signs: Vital Signs Temp Pulse Resp BP Pulse Ox O2 Del Method O2 Flow Rate 36.4 C L 62 16 126/56 H 94 Nasal Cannula 3 01/10/25 03:20 01/10/25 07:48 01/10/25 06:45 01/10/25 03:20 01/10/25 06:45 01/10/25 06:45 01/10/25 06:45 FiO2 98 01/09/25 08:02 Oxygen Flow Rate (L/min) 3 Oxygen Delivery Method Nasal Cannula Weight: 99.5 kg Body Mass Index (BMI) 30.6 Intake & Output: Intake and Output for Last 24 Hours 01/08/25 01/09/25 01/10/25 23:59 23:59 23:59 Intake Total 287.45 / 287.45 940.2 / 940.2 Output Total 1125 / 2375 3550 / 3550 500 / 500 Balance -837.55 / -2087.55 -2609.8 / -2609.8 -500 / -500 Lab / Micro Data 01/10/25 06:43 01/10/25 06:43 Labs: Laboratory Results - last 24 hr 01/09/25 11:19: POC Glucose 373 H 01/09/25 16:16: POC Glucose 378 H 01/09/25 20:26: POC Glucose 314 H 01/10/25 06:43: WBC 16.9 H, RBC 2.61 L, Hgb 8.1 L, Hct 25.0 L, MCV 95.8 H, MCH 31.0, MCHC 32.4, RDW Std Deviation 58.9 H, RDW Coeff of Rafael 16.9 H, Plt Count 452 H, MPV 10.9, Neut % (Auto) Not Reportable, Absolute Neuts (auto) 15.0 H, Absolute Lymphs (auto) 0.85, Total Counted 100, Neutrophils % (Manual) 87 H, Band Neutrophils % 2, Lymphocytes % (Manual) 5 L, Monocytes % (Manual) 3, M etamyelocytes % 3 H, Nucleated RBCs/100 WBC 2, Platelet Estimate SLT INC, Polychromasia 1+, Macrocytosis 1+, Ovalocytes 1+, Sodium 136, Potassium 4.4, Chloride 101, Carbon Dioxide 21.2, Anion Gap 14, BUN 56 H, Creatinine 1.90 H, E stim Creat Clear Calc 40.38 L, Est GFR (MDRD) Non-Af 36 L, BUN/Creatinine Ratio 29.6 H, Glucose 477 H*, Calcium 8.9 01/10/25 07:39: POC Glucose 425 H Micro: Microbiology 01/04/25 09:32 Blood Culture (Wb) - Right Hand Blood Culture - Final No growth in 5 days. 01/07/25 10:55 Mucosa - Nasopharyngeal SARS-CoV-2, Influenza & RSV (PCR) - Final 01/05/25 19:00 Urine, Clean Catch Legionella Antigen - Final 01/05/25 09:33 Mucosa - Nasopharyngeal Respiratory Panel (PCR) - Final 12/30/24 12:12 Blood Culture (Wb) - Anticubital Right Blood Culture - Final No growth in 5 days. 12/30/24 12:27 Blood Culture (Wb) - Left Hand Blood Culture - Final No growth in 5 days. 01/04/25 11:16 Stool Clostridioides difficile (PCR) - Final 01/01/25 17:30 Sputum, Expectorated/Coughed Gram Stain - Final 01/01/25 17:30 Sputum, Expectorated/Coughed Respiratory Culture - Final Presumptive C albicans 12/31/24 09:40 Urine, Clean Catch Urine Culture - Final Yeast, not Elisha albicans 12/30/24 14:15 Mucosa - Nasopharyngeal SARS-CoV-2, Influenza & RSV (PCR) - Final 12/24/24 23:21 Blood Culture (Wb) - Anticubital Left Blood Culture - Final No growth in 5 days. 12/25/24 00:33 Blood Culture (Wb) - Right Forearm Blood Culture - Final No growth in 5 days. 12/25/24 01:25 Urine, Clean Catch Urine Culture - Final Enterococcus faecalis Yeast, not Elisha albicans GNR lactose hot box checker 12/25/24 20:10 Sputum, Expectorated/Coughed Gram Stain - Final 12/25/24 20:10 Sputum, Expectorated/Coughed Respiratory Culture - Final Presumptive C albicans 12/25/24 04:56 Mucosa - Nasopharyngeal Respiratory Panel (PCR) - Final 12/25/24 04:00 Nasal Secretion MRSA (PCR) - Final Meth. resistant Staph. aureus 12/25/24 01:25 Urine, Clean Catch Legionella Antigen - Final 12/25/24 01:25 Urine, Clean Catch Streptococcus pneumoniae Antigen (M - Final 12/24/24 23:30 Mucosa - Nose SARS-CoV-2, Influenza & RSV (PCR) - Final Rhythm Strip Rhythm Strip: currently sinus Physical Exam Const alert and no apparent distress HEENT head/scalp atraumatic and moist oral mucous membranes Resp normal respiratory effort, no retractions, no use of accessory muscles and clear to auscultation bilaterally Cardio regular rate, regular rhythm, S1 normal heart sound and S2 normal heart sound GI normal to inspection, nondistended, normoactive bowel sounds, soft to palpation, non-tender and non-distended Assessment & Plan Assessment/Plan (1) Pneumonia: PLAN: Plan Acute on Chronic Hypoxic and Hypercarbic Respiratory Failure * continues to remain stable. secondary to bilateral MRSA pneumonia: * Chest CTAshows bilateral patchy ground glass opacities/acinar densities predominantly right upper lobe. Bilateral pulmonary atelectatic changes with lower lobe bronchial wall thickening. PE ruled out. * Pneumonia workup shows respiratory panel and urinary antigens are negative. Triple PCR for SARS-CoV-2, flu and RSV are negative. Nasal MRSA screen positive. SCx positive for MRSA. * Patient empirically on IV vancomycin and pip/tazo. * 12/26: Overall patient feeling better than yesterday but is still mild short of breath at rest get worse on exertion. Sputum Gram stain pending. Continue IV antibiotics. Narrowed on the antibiotic Zosyn to Unasyn. Urine culture growing GPC Enterococcus (25,000 and yeastlike organism). UTI ruled out. * Oxygen overall had able to be weaned down, but since has been increasing. * 01/01: oxygen around 4.5. Still coughing up phlegm. Fevers overnight (Tmax 38.8). add PEP. * 01/10: overall improved. abx w doxycycline, meropenem, fluconazole and methylprednisolone. IV butetanide MRSA pneumonia * on doxycycline Chronic medical conditions: * CAD: s/p LAD, RCA (2001) and L circumflex (2013), chronic HFrEF, chronic atrial fibrillation: Most recent echocardiogram 08/23/2024 with EF 25 to 30%, severe LV systolic dysfunction, no significant change from previous echocardiogram 05/2024 with EF at that time 25%Continue Coreg, statin therapy. It seems patient is not on baby aspirin probably due to GI bleed. Baby aspirin started as patient is high risk for cardiac complications including [place] and stroke. Patient not on MEDHAT or ARB. 12/26: Bumex 0.5 mg oral changed to IV and Jardiance resumed. * Chronic macrocytic anemia/Fe deficiency anemia complicated by history of significant recurrent GI bleeds w/ AVMs: Admission hemoglobin 9.2, MCV 97.6, baseline hemoglobin 8-10, stable, continue to trend. Continue PPI iron supplementation. Monitor CBC following Hematology, most recent visit noted 12/06/24. * Hx VTE, DVT and BL PE: Most recent event 07/2021 BL PE, prior DVT, history of significant GI bleeds status post IVC filter placement. * Diabetes mellitus type II: Will hold oral regimen, continue long-acting insulin regimen, will maintain on ADA diet, accu checks with ISS. * Rheumatoid arthritis: Previously on rituximab and prior also noted to have been on low dose prednisone, will clarify if currently ongoing but may have been discontinued given GI bleed issues. * Hypertension: Continue home Coreg, Spironolactone, Lasix with hold parameters as needed given low-normal BP in the ED, PRN hydralazine. * Hyperlipidemia: Continue home statin therapy. * History of non-Hodgkin's lymphoma: Considered in remission, s/p ABVD and radiation 2010, encourage continued outpatient follow-up with oncology as previously arranged or needed. * Anxiety and depression: We will continue patient home escitalopram and mirtazapine regimen. * BPH with obstructive pathology: We will continue patient home finasteride and Flomax regimen. * Chronic Kidney Disease Stage IIIb: Admission BUN/Cr 50/2.04, GFR 33, baseline renal function more recently 1.7-2.7, seems to vacillate, most recently 12/06/2024 creatinine 2.70, repeat BMP in AM to elucidate current baseline.12/26: Patient creatinine slightly better, 1.8 today. Baseline Bumex 0.5 mg IV resumed. * GERD with history of significant recurrent GI bleeds with AVMs: Will continue patient on PPI, DVT prophylaxis: Heparin cautiously. Disposition: to SNF. Precertification initiated. Charges/Coding Visit Charges Inpatient E&M: 88897 Subs Hosp L2
[2025-01-10] MEDS: guaiFENesin/D-Methorphan TAB.SR.12H 2 TABLET PO ×2 (08:58→22:08)
[2025-01-10] MEDS: Meropenem 1 GM in 0.9% Normal Saline (100mL MB+) 100 ML IV ×2 (09:06→22:12)
--- NOTE | 2025-01-10 10:16 | PCM.PN.REN ---
Subjective Subjective Sitting in chair, no overnight events. Denies any complaints. Objective Data Objective Data Vital Signs: Vital Signs Temp Pulse Resp BP Pulse Ox O2 Del Method O2 Flow Rate 97.5 F L 65 18 123/63 H 92 Nasal Cannula 3 01/10/25 08:40 01/10/25 08:40 01/10/25 08:40 01/10/25 08:40 01/10/25 08:40 01/10/25 08:40 01/10/25 09:25 FiO2 98 01/09/25 08:02 Oxygen Flow Rate (L/min) 3 Oxygen Delivery Method Nasal Cannula Weight: 99.5 kg Body Mass Index (BMI) 30.6 Intake & Output: Intake and Output for Last 24 Hours 01/08/25 01/09/25 01/10/25 23:59 23:59 23:59 Intake Total 287.45 / 287.45 940.2 / 940.2 Output Total 1125 / 2375 3550 / 3550 500 / 500 Balance -837.55 / -2087.55 -2609.8 / -2609.8 -500 / -500 Lab / Micro Data 01/10/25 06:43 01/10/25 06:43 Labs: Laboratory Results - last 24 hr 01/09/25 11:19: POC Glucose 373 H 01/09/25 16:16: POC Glucose 378 H 01/09/25 20:26: POC Glucose 314 H 01/10/25 06:43: WBC 16.9 H, RBC 2.61 L, Hgb 8.1 L, Hct 25.0 L, MCV 95.8 H, MCH 31.0, MCHC 32.4, RDW Std Deviation 58.9 H, RDW Coeff of Rafael 16.9 H, Plt Count 452 H, MPV 10.9, Neut % (Auto) Not Reportable, Absolute Neuts (auto) 15.0 H, Absolute Lymphs (auto) 0.85, Total Counted 100, Neutrophils % (Manual) 87 H, Band Neutrophils % 2, Lymphocytes % (Manual) 5 L, Monocytes % (Manual) 3, Metamyelocytes % 3 H, Nucleated RBCs/100 WBC 2, Platelet Estimate SLT INC, Polychromasia 1+, Macrocytosis 1+, Ovalocytes 1+, Sodium 136, Potassium 4.4, Chloride 101, Carbon Dioxide 21.2, Anion Gap 14, BUN 56 H, Creatinine 1.90 H, Estim Creat Clear Calc 40.38 L, Est GFR (MDRD) Non-Af 36 L, BUN/Creatinine Ratio 29.6 H, Glucose 477 H*, Calcium 8.9 01/10/25 07:39: POC Glucose 425 H Micro: Microbiology 01/04/25 09:32 Blood Culture (Wb) - Right Hand Blood Culture - Final No growth in 5 days. 01/07/25 10:55 Mucosa - Nasopharyngeal SARS-CoV-2, Influenza & RSV (PCR) - Final 01/05/25 19:00 Urine, Clean Catch Legionella Antigen - Final 01/05/25 09:33 Mucosa - Nasopharyngeal Respiratory Panel (PCR) - Final 12/30/24 12:12 Blood Culture (Wb) - Anticubital Right Blood Culture - Final No growth in 5 days. 12/30/24 12:27 Blood Culture (Wb) - Left Hand Blood Culture - Final No growth in 5 days. 01/04/25 11:16 Stool Clostridioides difficile (PCR) - Final 01/01/25 17:30 Sputum, Expectorated/Coughed Gram Stain - Final 01/01/25 17:30 Sputum, Expectorated/Coughed Respiratory Culture - Final Presumptive C albicans 12/31/24 09:40 Urine, Clean Catch Urine Culture - Final Yeast, not Elisha albicans 12/30/24 14:15 Mucosa - Nasopharyngeal SARS-CoV-2, Influenza & RSV (PCR) - Final 12/24/24 23:21 Blood Culture (Wb) - Anticubital Left Blood Culture - Final No growth in 5 days. 12/25/24 00:33 Blood Culture (Wb) - Right Forearm Blood Culture - Final No growth in 5 days. 12/25/24 01:25 Urine, Clean Catch Urine Culture - Final Enterococcus faecalis Yeast, not Elisha albicans GNR lactose disabilities services officer 12/25/24 20:10 Sputum, Expectorated/Coughed Gram Stain - Final 12/25/24 20:10 Sputum, Expectorated/Coughed Respiratory Culture - Final Presumptive C albicans 12/25/24 04:56 Mucosa - Nasopharyngeal Respiratory Panel (PCR) - Final 12/25/24 04:00 Nasal Secretion MRSA (PCR) - Final Meth. resistant Staph. aureus 12/25/24 01:25 Urine, Clean Catch Legionella Antigen - Final 12/25/24 01:25 Urine, Clean Catch Streptococcus pneumoniae Antigen (M - Final 12/24/24 23:30 Mucosa - Nose SARS-CoV-2, Influenza & RSV (PCR) - Final Rhythm Strip Rhythm Strip: currently sinus Physical Exam Narrative Alert, awake & oriented x 3 no obvious distress s1s2 no murmurs lungs clear anteriorly, diminished breath sounds posterior bases. No wheezes, rhonchi or rales noted. On O2 nasal cannula 3 L abdomen soft Trace lower extremity edema Assessment & Plan Assessment/Plan (1) Chronic kidney disease, stage 3b: PLAN: Assessment/Plan: Patient is a 74-year-old male with past history of CKD stage G3b, type 2 diabetes mellitus, hypertension, CAD status post [place], ischemic cardiomyopathy with HFrEF (EF 25 to 30% on echocardiogram from 08/23/2024), COPD, pulmonary embolism, non-Hodgkin lymphoma, BPH, rheumatoid arthritis, major depressive disorder, generalized anxiety disorder and hyperlipidemia. Patient presented to hospital on 12/25/2024 with 3-day history of dyspnea, fever/chill. Patient was found to have CAP and is being treated with antibiotic for MRSA pneumonia. Nephrology is following for CKD stage G3b. Chronic kidney disease stage G3b. In July of this year, creatinine was close to 1.4-1.5 range. Over the last 2 to 3 months, creatinine has been between 1.8-2.0. Urinalysis appears to be fairly concentrated, 1+ protein, glycosuria from SGLT2 inhibitor, some cells. CT abdomen without any hydronephrosis. Renal function has been stable around his usual baseline during this admission. Serum creatinine today 1.9 mg/dL and has been ranging around 1.8 to 2 mg/dL despite continuation of IV bumetanide. We can consider transitioning patient to oral bumetanide when okay per primary team. Weight around 91 to 95 kg however oxygenation requirements have improved. Assessment and plan reviewed with Dr. Lopez.
--- NOTE | 2025-01-10 11:54 | CASEMGMT ---
Discharge Planning Updates sent via [facility] to [facility] with note to submit for precert. Batool Zeng DC Planning Asst.
--- NOTE | 2025-01-10 15:08 | PCM.PN.ID ---
Physical Exam Narrative Feeling much better. Walked the jones. No fever, breathing improved. Const alert and no apparent distress General Appearance: cooperative Resp normal air movement and clear to auscultation bilaterally Cardio regular rate and regular rhythm GI soft to palpation, non-tender and non-distended Skin no rashes or lesions noted ID ID: Route of nutrition/ use of supplements: [] Nutritional Intake: [] IV Site: [] Ball Catheter: [] Assessment & Plan Assessment/Plan (1) UTI (urinary tract infection): (2) Pneumonia: PLAN: On admit, Ucx with small growth enterococcus. Sputum cx neg so far. Had ongoing fever, so changed vanc/unasyn to vanc/zosyn 12/30. Sputum and urine with yeast, 01/03/25 added fluc. Still had fever, 01/04 had neg resp pcr panel and ordered doppler BLE. 01/05 changed abx to doxy/sveta/fluc. Seen by pulm. No fever since 01/06. Plan on short course po abx at discharge. Will follow (3) Acute and chronic respiratory failure with hypercapnia:
[2025-01-10 16:09] LABS: Cytoplasmic Ab (C-ANCA) 1:20 titer (Neg:<1:20); Perinuclear Ab (P-ANCA) <1:20 titer (Neg:<1:20)
[2025-01-10] MEDS: Insulin Glargine-YFGN 100 UNIT/ML Pen 15 UNIT SC (22:08)
[2025-01-11] VITALS (9 sets, daily range): BP systolic 103–128; BP diastolic 49–79; PULSE 54–71; RESP 16–18; TEMP 36–36.5; O2SAT 65–97; BMI 30.1
[2025-01-11] MEDS: 0.9% Saline Lock 10 ML Syringe IV ×2 (05:56→10:41)
[2025-01-11 06:15] LABS: Hematocrit 27.0 % (40-54); Hemoglobin 8.7 g/dL (13.0-16.5); Mean Corp Hgb Conc 32.2 g/dL (32-36); Mean Corpuscular Volume 95.1 fL (80-94); Mean Platelet Vol. 11.0 fl (6.2-12.0); POSITIVE COUNT YES; POSITIVE MORPHOLOGY YES; Platelet Count 452 K/mm3 (150-450); RBC Distribution Width CV 16.9 % (11.6-14.6); RBC Distribution Width SD 58.3 fl (35.1-43.9); Red Blood Count 2.84 M/mm3 (4.6-6.2); White Blood Count 15.4 K/mm3 (4.4-11.0)
[2025-01-11 06:17] LABS: Differential Indicated MANUAL DIFF
[2025-01-11] MEDS: Budesonide Respules 0.5 MG/2 ML AMPUL.NEB. INHALATION ×2 (06:48→20:24)
[2025-01-11 06:58] LABS: Neutrophil-Band 9 % (0-5); Neutrophil-Segmented 80 % (47-70); Total Cells Counted 100 (MANUAL DIFF)
[2025-01-11 06:59] LABS: Polychromasia RARE; Red Cell Morphology N CYTIC NORMAL (NORM C&C)
--- NOTE | 2025-01-11 08:03 | PCM.PN.HOSP ---
Reason for Visit Chief Complaint: Dyspnea, increased hypoxia/oxygen needs, URI sxs, subjective F/C. Subjective Subjective Feeling better. Breathing better. Coughing up yellow phlegm. Objective Data Objective Data Vital Signs: Vital Signs Temp Pulse Resp BP Pulse Ox O2 Del Method O2 Flow Rate 36.0 C L 69 16 107/49 L 93 Nasal Cannula 3 01/11/25 03:58 01/11/25 06:49 01/11/25 06:49 01/11/25 03:58 01/11/25 06:49 01/11/25 06:49 01/11/25 06:49 FiO2 98 01/09/25 08:02 Oxygen Flow Rate (L/min) 3 Oxygen Delivery Method Nasal Cannula Weight: 98 kg Body Mass Index (BMI) 30.1 Intake & Output: Intake and Output for Last 24 Hours 01/09/25 01/10/25 01/11/25 23:59 23:59 23:59 Intake Total 940.2 / 940.2 950 / 950 100 / 100 Output Total 3550 / 3550 1550 / 1550 1125 / 1125 Balance -2609.8 / -2609.8 -600 / -600 -1025 / -1025 Lab / Micro Data 01/11/25 05:22 01/10/25 06:43 Labs: Laboratory Results - last 24 hr 01/07/25 13:00: Cycl Citrul Peptide IgG 6, c-ANCA Antibody 1:20 H, Atypical p-ANCA <1:20, p-ANCA Antibody <1:20 01/10/25 06:43: Absolute Neuts (auto) 15.0 H, Absolute Lymphs (auto) 0.85, Total Counted 100, Neutrophils % (Manual) 87 H, Band Neutrophils % 2, Lymphocytes % (Manual) 5 L, Monocytes % (Manual) 3, Metamyelocytes % 3 H, Nucleated RBCs/100 WBC 2, Platelet Estimate SLT INC, Polychromasia 1+, Macrocytosis 1+, Ovalocytes 1+ 01/10/25 11:29: POC Glucose 349 H 01/10/25 16:29: POC Glucose 321 H 01/10/25 22:03: POC Glucose 359 H 01/11/25 05:22: WBC 15.4 H, RBC 2.84 L, Hgb 8.7 L, Hct 27.0 L, MCV 95.1 H, MCH 30.6, MCHC 32.2, RDW Std Deviation 58.3 H, RDW Coeff of Rafael 16.9 H, Plt Count 452 H, MPV 11.0, Neut % (Auto) Not Reportable, Absolute Neuts (auto) 13.1 H, Absolute Lymphs (auto) 1.39, Total Counted 100, Neutrophils % (Manual) 80 H, Band Neutrophils % 9 H, Lymphocytes % (Manual) 9 L, Monocytes % (Manual) 1, Metamyelocytes % 1, Platelet Estimate SLT, RBC Morphology N CYTIC, Polychromasia RARE Micro: Microbiology 01/04/25 09:32 Blood Culture (Wb) - Right Hand Blood Culture - Final No growth in 5 days. 01/07/25 10:55 Mucosa - Nasopharyngeal SARS-CoV-2, Influenza & RSV (PCR) - Final 01/05/25 19:00 Urine, Clean Catch Legionella Antigen - Final 01/05/25 09:33 Mucosa - Nasopharyngeal Respiratory Panel (PCR) - Final 12/30/24 12:12 Blood Culture (Wb) - Anticubital Right Blood Culture - Final No growth in 5 days. 12/30/24 12:27 Blood Culture (Wb) - Left Hand Blood Culture - Final No growth in 5 days. 01/04/25 11:16 Stool Clostridioides difficile (PCR) - Final 01/01/25 17:30 Sputum, Expectorated/Coughed Gram Stain - Final 01/01/25 17:30 Sputum, Expectorated/Coughed Respiratory Culture - Final Presumptive C albicans 12/31/24 09:40 Urine, Clean Catch Urine Culture - Final Yeast, not Elisha albicans 12/30/24 14:15 Mucosa - Nasopharyngeal SARS-CoV-2, Influenza & RSV (PCR) - Final 12/24/24 23:21 Blood Culture (Wb) - Anticubital Left Blood Culture - Final No growth in 5 days. 12/25/24 00:33 Blood Culture (Wb) - Right Forearm Blood Culture - Final No growth in 5 days. 12/25/24 01:25 Urine, Clean Catch Urine Culture - Final Enterococcus faecalis Yeast, not Elisha albicans GNR lactose cashier host/hostess 12/25/24 20:10 Sputum, Expectorated/Coughed Gram Stain - Final 12/25/24 20:10 Sputum, Expectorated/Coughed Respiratory Culture - Final Presumptive C albicans 12/25/24 04:56 Mucosa - Nasopharyngeal Respiratory Panel (PCR) - Final 12/25/24 04:00 Nasal Secretion MRSA (PCR) - Final Meth. resistant Staph. aureus 12/25/24 01:25 Urine, Clean Catch Legionella Antigen - Final 12/25/24 01:25 Urine, Clean Catch Streptococcus pneumoniae Antigen (M - Final 12/24/24 23:30 Mucosa - Nose SARS-CoV-2, Influenza & RSV (PCR) - Final Rhythm Strip Rhythm Strip: currently sinus Physical Exam Const alert and no apparent distress Constitutional Narrative: Working with therapy. Much more energetic today. Walking without assistance but using wheeled walker with therapy. HEENT head/scalp atraumatic and moist oral mucous membranes Resp normal respiratory effort, no retractions, no use of accessory muscles and clear to auscultation bilaterally Cardio regular rate, regular rhythm, S1 normal heart sound and S2 normal heart sound GI normal to inspection, nondistended, normoactive bowel sounds and soft to palpation Neuro Sensorium / Orientation: awake Assessment & Plan Assessment/Plan (1) Pneumonia: PLAN: Plan Acute on Chronic Hypoxic and Hypercarbic Respiratory Failure continues to remain stable. secondary to bilateral MRSA pneumonia: Chest CTAshows bilateral patchy ground glass opacities/acinar densities predominantly right upper lobe. Bilateral pulmonary atelectatic changes with lower lobe bronchial wall thickening. PE ruled out. Pneumonia workup shows respiratory panel and urinary antigens are negative. Triple PCR for SARS-CoV-2, flu and RSV are negative. Nasal MRSA screen positive. SCx positive for MRSA. Patient empirically on IV vancomycin and pip/tazo. 12/26: Overall patient feeling better than yesterday but is still mild short of breath at rest get worse on exertion. Sputum Gram stain pending. Continue IV antibiotics. Narrowed on the antibiotic Zosyn to Unasyn. Urine culture growing GPC Enterococcus (25,000 and yeastlike organism). UTI ruled out. Oxygen overall had able to be weaned down, but since has been increasing. 01/01: oxygen around 4.5. Still coughing up phlegm. Fevers overnight (Tmax 38.8). add PEP. 01/10: overall improved. abx w doxycycline, meropenem, fluconazole and methylprednisolone. IV bumetanide MRSA pneumonia on doxycycline Chronic medical conditions: CAD: s/p LAD, RCA (2001) and L circumflex (2013), chronic HFrEF, chronic atrial fibrillation: Most recent echocardiogram 08/23/2024 with EF 25 to 30%, severe LV systolic dysfunction, no significant change from previous echocardiogram 05/2024 with EF at that time 25%Continue Coreg, statin therapy. It seems patient is not on baby aspirin probably due to GI bleed. Baby aspirin started as patient is high risk for cardiac complications including [place] and stroke. Patient not on MEDHAT or ARB. 12/26: Bumex 0.5 mg oral changed to IV and Jardiance resumed. Chronic macrocytic anemia/Fe deficiency anemia complicated by history of significant recurrent GI bleeds w/ AVMs: Admission hemoglobin 9.2, MCV 97.6, baseline hemoglobin 8-10, stable, continue to trend. Continue PPI iron supplementation. Monitor CBC following Hematology, most recent visit noted 12/06/24. Hx VTE, DVT and BL PE: Most recent event 07/2021 BL PE, prior DVT, history of significant GI bleeds status post IVC filter placement. Diabetes mellitus type II: Will hold oral regimen, continue long-acting insulin regimen, will maintain on ADA diet, accu checks with ISS. Increase glargine from 15 units QHS to 25 BID. Rheumatoid arthritis: Previously on rituximab and prior also noted to have been on low dose prednisone, will clarify if currently ongoing but may have been discontinued given GI bleed issues. Hypertension: Continue home Coreg, Spironolactone, Lasix with hold parameters as needed given low-normal BP in the ED, PRN hydralazine. Hyperlipidemia: Continue home statin therapy. History of non-Hodgkin's lymphoma: Considered in remission, s/p ABVD and radiation 2010, encourage continued outpatient follow-up with oncology as previously arranged or needed. Anxiety and depression: We will continue patient home escitalopram and mirtazapine regimen. BPH with obstructive pathology: We will continue patient home finasteride and Flomax regimen. Chronic Kidney Disease Stage IIIb: Admission BUN/Cr 50/2.04, GFR 33, baseline renal function more recently 1.7-2.7, seems to vacillate, most recently 12/06/2024 creatinine 2.70, repeat BMP in AM to elucidate current baseline.12/26: Patient creatinine slightly better, 1.8 today. Baseline Bumex 0.5 mg IV resumed. GERD with history of significant recurrent GI bleeds with AVMs: Will continue patient on PPI, DVT prophylaxis: Heparin cautiously. Disposition: Patient now requesting to go home with home care. Will monitor the patient overnight with tentative plan for discharge on 01/12. Charges/Coding Visit Charges Inpatient E&M: 98387 Subs Hosp L2
[2025-01-11 08:09] LABS: ANTINUCLEAR ANTIBODIES DIRECT Negative (Negative)
[2025-01-11] MEDS: guaiFENesin/D-Methorphan TAB.SR.12H 2 TABLET PO ×2 (10:18→21:46)
[2025-01-11] MEDS: Insulin Glargine-YFGN 100 UNIT/ML Pen 25 UNIT SC ×2 (10:20→21:45)
--- NOTE | 2025-01-11 10:22 | PCM.PN.ID ---
Physical Exam Narrative No fever, breathing better, transfer to rehab planned. No n/v/d. Const alert and no apparent distress General Appearance: cooperative Resp normal air movement and clear to auscultation bilaterally Cardio regular rate and regular rhythm GI soft to palpation, non-tender and non-distended Skin no rashes or lesions noted ID ID: Route of nutrition/ use of supplements: [] Nutritional Intake: [] IV Site: [] Ball Catheter: [] Assessment & Plan Assessment/Plan (1) UTI (urinary tract infection): (2) Pneumonia: PLAN: On admit, Ucx with small growth enterococcus. Sputum cx neg so far. Had ongoing fever, so changed vanc/unasyn to vanc/zosyn 12/30. Sputum and urine with yeast, 01/03/25 added fluc. Still had fever, 01/04 had neg resp pcr panel and ordered doppler BLE. 01/05 changed abx to doxy/sveta/fluc. Seen by pulm. No fever since 01/06. Will stop abx today. Will prnfollow (3) Acute and chronic respiratory failure with hypercapnia:
--- NOTE | 2025-01-11 11:47 | CASEMGMT ---
TARAH DEL RIO updated by hospitalist that patient now wants to discharge home with family. TARAH DEL RIO reviewed therapy notes and patient ambulated 120 ft contact guard with therapy. TARAH DEL RIO in to discuss discharge planning with patient. Patient states he spoke with family and they are wanting him to discharge to [facility]'s home and would like [facility], patient declined [facility] list. Patient gave permission to call Ray or Juliana to discuss discharge planning. TARAH DEL RIO called Juliana and confirmed plan that patient is to discharge to their home and would like [facility]. Juliana had no further questions or concerns. TARAH DEL RIO made referral to [facility], awaiting response. CM will continue to follow this patient and plan for a safe discharge.
--- NOTE | 2025-01-11 11:54 | CASEMGMT ---
Discharge Planning Per RN CM request, [facility] has been asked to cancel precert and referral d/t pt returning home. Batool Zeng DC Planning Asst.
[2025-01-12] VITALS (8 sets, daily range): BP systolic 104–124; BP diastolic 51–70; PULSE 54–88; RESP 16–18; TEMP 36.2–36.6; O2SAT 88–99; BMI 31.1
[2025-01-12] MEDS: 0.9% Saline Lock 10 ML Syringe IV ×2 (00:37→05:33)
[2025-01-12] MEDS: Budesonide Respules 0.5 MG/2 ML AMPUL.NEB. INHALATION (06:46)
[2025-01-12 07:08] LABS: Anion Gap 13 (5-15); BUN 70 mg/dL (4-19); BUN/Creat Ratio 41.5 RATIO (10-20); Calcium,Total 8.3 mg/dL (7.6-11.0); Carbon Dioxide 22.2 mmol/L (21.0-32.0); Chloride 100 mmol/L (98-108); Estimated Creatinine Clearance 45.76 ml/min (50-250); Glucose 396 mg/dL (70-99); Potassium 4.6 mmol/L (3.3-5.1)
--- NOTE | 2025-01-12 08:45 | PN.HOSP_ITS ---
Reason for Visit Chief Complaint: Dyspnea, increased hypoxia/oxygen needs, URI sxs, subjective F/C. Subjective Subjective Breathing well. No new complaints. Objective Data Objective Data Vital Signs: Vital Signs Temp Pulse Resp BP Pulse Ox O2 Del Method O2 Flow Rate 36.2 C L 63 18 113/51 L 93 Nasal Cannula 3 01/12/25 03:16 01/12/25 06:47 01/12/25 06:47 01/12/25 03:16 01/12/25 06:47 01/12/25 06:47 01/12/25 06:47 FiO2 98 01/09/25 08:02 Oxygen Flow Rate (L/min) 3 Oxygen Delivery Method Nasal Cannula Weight: 101.2 kg Body Mass Index (BMI) 31.1 Intake & Output: Intake and Output for Last 24 Hours 01/10/25 01/11/25 01/12/25 23:59 23:59 23:59 Intake Total 950 / 950 100 / 100 Output Total 1550 / 1550 1475 / 1475 600 / 600 Balance -600 / -600 -1375 / -1375 -600 / -600 Lab / Micro Data 01/11/25 05:22 01/12/25 06:28 Labs: Laboratory Results - last 24 hr 01/11/25 12:38: POC Glucose > 500 H* 01/11/25 17:19: POC Glucose 338 H 01/11/25 21:43: POC Glucose 200 H 01/12/25 06:28: Sodium 135, Potassium 4.6, Chloride 100, Carbon Dioxide 22.2, Anion Gap 13, BUN 70 H, Creatinine 1.69 H, Estim Creat Clear Calc 45.76 L, Est GFR (MDRD) Non-Af 42 L, BUN/Creatinine Ratio 41.5 H, Glucose 396 H, Calcium 8.3 Micro: Microbiology 01/04/25 09:32 Blood Culture (Wb) - Right Hand Blood Culture - Final No growth in 5 days. 01/07/25 10:55 Mucosa - Nasopharyngeal SARS-CoV-2, Influenza & RSV (PCR) - Final 01/05/25 19:00 Urine, Clean Catch Legionella Antigen - Final 01/05/25 09:33 Mucosa - Nasopharyngeal Respiratory Panel (PCR) - Final 12/30/24 12:12 Blood Culture (Wb) - Anticubital Right Blood Culture - Final No growth in 5 days. 12/30/24 12:27 Blood Culture (Wb) - Left Hand Blood Culture - Final No growth in 5 days. 01/04/25 11:16 Stool Clostridioides difficile (PCR) - Final 01/01/25 17:30 Sputum, Expectorated/Coughed Gram Stain - Final 01/01/25 17:30 Sputum, Expectorated/Coughed Respiratory Culture - Final Presumptive C albicans 12/31/24 09:40 Urine, Clean Catch Urine Culture - Final Yeast, not Elisha albicans 12/30/24 14:15 Mucosa - Nasopharyngeal SARS-CoV-2, Influenza & RSV (PCR) - Final 12/24/24 23:21 Blood Culture (Wb) - Anticubital Left Blood Culture - Final No growth in 5 days. 12/25/24 00:33 Blood Culture (Wb) - Right Forearm Blood Culture - Final No growth in 5 days. 12/25/24 01:25 Urine, Clean Catch Urine Culture - Final Enterococcus faecalis Yeast, not Elisha albicans GNR lactose egg pasteurizer 12/25/24 20:10 Sputum, Expectorated/Coughed Gram Stain - Final 12/25/24 20:10 Sputum, Expectorated/Coughed Respiratory Culture - Final Presumptive C albicans 12/25/24 04:56 Mucosa - Nasopharyngeal Respiratory Panel (PCR) - Final 12/25/24 04:00 Nasal Secretion MRSA (PCR) - Final Meth. resistant Staph. aureus 12/25/24 01:25 Urine, Clean Catch Legionella Antigen - Final 12/25/24 01:25 Urine, Clean Catch Streptococcus pneumoniae Antigen (M - Final 12/24/24 23:30 Mucosa - Nose SARS-CoV-2, Influenza & RSV (PCR) - Final Rhythm Strip Rhythm Strip: currently sinus Physical Exam Const alert and no apparent distress HEENT head/scalp atraumatic and moist oral mucous membranes Resp normal respiratory effort and no retractions Resp Narrative: bibasilar crackles. Cardio regular rate, regular rhythm, S1 normal heart sound and S2 normal heart sound GI normal to inspection, nondistended, normoactive bowel sounds, soft to palpation, non-tender, non-distended and hepatosplenomegaly Assessment & Plan Assessment/Plan (1) Pneumonia: PLAN: Plan Acute on Chronic Hypoxic and Hypercarbic Respiratory Failure * continues to remain stable. secondary to bilateral MRSA pneumonia: * Chest CTA shows bilateral patchy ground glass opacities/acinar densities predominantly right upper lobe. Bilateral pulmonary atelectatic changes with lower lobe bronchial wall thickening. PE ruled out. * Pneumonia workup shows respiratory panel and urinary antigens are negative. Triple PCR for SARS-CoV-2, flu and RSV are negative. Nasal MRSA screen positive. SCx positive for MRSA. * Patient empirically on IV vancomycin and pip/tazo. * 12/26: Overall patient feeling better than yesterday but is still mild short of breath at rest get worse on exertion. Sputum Gram stain pending. Continue IV antibiotics. Narrowed on the antibiotic Zosyn to Unasyn. Urine culture growing GPC Enterococcus (25,000 and yeastlike organism). UTI ruled out. * Oxygen overall had able to be weaned down, but since has been increasing. * 01/01: oxygen around 4.5. Still coughing up phlegm. Fevers overnight (Tmax 38.8). add PEP. * 01/10: overall improved. abx w doxycycline, meropenem, fluconazole and methylprednisolone. IV bumetanide * 01/12: change methylpred to prednisone for 5-day course. Abx dc'd on the . Change bumetanide to PO and discharge home. MRSA pneumonia * completed abx. Chronic medical conditions: * CAD: s/p LAD, RCA (2001) and L circumflex (2013), chronic HFrEF, chronic atrial fibrillation: Most recent echocardiogram 08/23/2024 with EF 25 to 30%, severe LV systolic dysfunction, no significant change from previous echocardiogram 05/2024 with EF at that time 25%Continue Coreg, statin therapy. It seems patient is not on baby aspirin probably due to GI bleed. Baby aspirin started as patient is high risk for cardiac complications including [place] and stroke. Patient not on MEDHAT or ARB. 12/26: Bumex 0.5 mg oral changed to IV and Jardiance resumed. * Chronic macrocytic anemia/Fe deficiency anemia complicated by history of significant recurrent GI bleeds w/ AVMs: Admission hemoglobin 9.2, MCV 97.6, baseline hemoglobin 8-10, stable, continue to trend. Continue PPI iron supplementation. Monitor CBC following Hematology, most recent visit noted 12/06/24. * Hx VTE, DVT and BL PE: Most recent event 07/2021 BL PE, prior DVT, history of significant GI bleeds status post IVC filter placement. * Diabetes mellitus type II: Will hold oral regimen, continue long-acting insulin regimen, will maintain on ADA diet, accu checks with ISS. Increase glargine from 15 units QHS to 25 BID. Hopefully with deescalation of steroids and eventual discontinuation that will continue to improve. * Rheumatoid arthritis: Previously on rituximab and prior also noted to have been on low dose prednisone, will clarify if currently ongoing but may have been discontinued given GI bleed issues. * Hypertension: Continue home Coreg, Spironolactone, Lasix with hold parameters as needed given low-normal BP in the ED, PRN hydralazine. * Hyperlipidemia: Continue home statin therapy. * History of non-Hodgkin's lymphoma: Considered in remission, s/p ABVD and radiation 2010, encourage continued outpatient follow-up with oncology as previously arranged or needed. * Anxiety and depression: We will continue patient home escitalopram and mirtazapine regimen. * BPH with obstructive pathology: We will continue patient home finasteride and Flomax regimen. * Chronic Kidney Disease Stage IIIb: Admission BUN/Cr 50/2.04, GFR 33, baseline renal function more recently 1.7-2.7, seems to vacillate, most recently 12/06/2024 creatinine 2.70, repeat BMP in AM to elucidate current baseline.12/26: Patient creatinine slightly better, 1.8 today. Baseline Bumex 0.5 mg IV resumed. * GERD with history of significant recurrent GI bleeds with AVMs: Will continue patient on PPI, DVT prophylaxis: Heparin cautiously. Disposition: [place] home with [facility].
[2025-01-12] MEDS: Insulin Glargine-YFGN 100 UNIT/ML Pen 25 UNIT SC (09:31)
[2025-01-12] MEDS: guaiFENesin/D-Methorphan TAB.SR.12H 2 TABLET PO (09:32)
--- NOTE | 2025-01-12 11:39 | PCM.PN.REN ---
Subjective Subjective Patient resting in bed. No overnight events. Hopeful to be discharged today. Objective Data Objective Data Vital Signs: Vital Signs Temp Pulse Resp BP Pulse Ox O2 Del Method O2 Flow Rate 97.5 F L 61 16 124/58 H 99 Nasal Cannula 3 01/12/25 08:55 01/12/25 08:55 01/12/25 08:55 01/12/25 08:55 01/12/25 08:55 01/12/25 08:55 01/12/25 06:47 FiO2 98 01/09/25 08:02 Oxygen Flow Rate (L/min) 3 Oxygen Delivery Method Nasal Cannula Weight: 101.2 kg Body Mass Index (BMI) 31.1 Intake & Output: Intake and Output for Last 24 Hours 01/10/25 01/11/25 01/12/25 23:59 23:59 23:59 Intake Total 950 / 950 100 / 100 Output Total 1550 / 1550 1475 / 1475 600 / 600 Balance -600 / -600 -1375 / -1375 -600 / -600 Lab / Micro Data 01/11/25 05:22 01/12/25 06:28 Labs: Laboratory Results - last 24 hr 01/07/25 13:00: SS-A/Ro IgG Antibody TNP, SS-B/La IgG Antibody TNP, Double Strand DNA Ab TNP 01/11/25 12:38: POC Glucose > 500 H* 01/11/25 17:19: POC Glucose 338 H 01/11/25 21:43: POC Glucose 200 H 01/12/25 06:28: Sodium 135, Potassium 4.6, Chloride 100, Carbon Dioxide 22.2, Anion Gap 13, BUN 70 H, Creatinine 1.69 H, Estim Creat Clear Calc 45.76 L, Est GFR (MDRD) Non-Af 42 L, BUN/Creatinine Ratio 41.5 H, Glucose 396 H, Calcium 8.3 01/12/25 08:53: POC Glucose 340 H Micro: Microbiology 01/04/25 09:32 Blood Culture (Wb) - Right Hand Blood Culture - Final No growth in 5 days. 01/07/25 10:55 Mucosa - Nasopharyngeal SARS-CoV-2, Influenza & RSV (PCR) - Final 01/05/25 19:00 Urine, Clean Catch Legionella Antigen - Final 01/05/25 09:33 Mucosa - Nasopharyngeal Respiratory Panel (PCR) - Final 12/30/24 12:12 Blood Culture (Wb) - Anticubital Right Blood Culture - Final No growth in 5 days. 12/30/24 12:27 Blood Culture (Wb) - Left Hand Blood Culture - Final No growth in 5 days. 01/04/25 11:16 Stool Clostridioides difficile (PCR) - Final 01/01/25 17:30 Sputum, Expectorated/Coughed Gram Stain - Final 01/01/25 17:30 Sputum, Expectorated/Coughed Respiratory Culture - Final Presumptive C albicans 12/31/24 09:40 Urine, Clean Catch Urine Culture - Final Yeast, not Elisha albicans 12/30/24 14:15 Mucosa - Nasopharyngeal SARS-CoV-2, Influenza & RSV (PCR) - Final 12/24/24 23:21 Blood Culture (Wb) - Anticubital Left Blood Culture - Final No growth in 5 days. 12/25/24 00:33 Blood Culture (Wb) - Right Forearm Blood Culture - Final No growth in 5 days. 12/25/24 01:25 Urine, Clean Catch Urine Culture - Final Enterococcus faecalis Yeast, not Elisha albicans GNR lactose equipment validation engineer 12/25/24 20:10 Sputum, Expectorated/Coughed Gram Stain - Final 12/25/24 20:10 Sputum, Expectorated/Coughed Respiratory Culture - Final Presumptive C albicans 12/25/24 04:56 Mucosa - Nasopharyngeal Respiratory Panel (PCR) - Final 12/25/24 04:00 Nasal Secretion MRSA (PCR) - Final Meth. resistant Staph. aureus 12/25/24 01:25 Urine, Clean Catch Legionella Antigen - Final 12/25/24 01:25 Urine, Clean Catch Streptococcus pneumoniae Antigen (M - Final 12/24/24 23:30 Mucosa - Nose SARS-CoV-2, Influenza & RSV (PCR) - Final Rhythm Strip Rhythm Strip: currently sinus Physical Exam Narrative Alert, awake & oriented x 3 no obvious distress s1s2 no murmurs lungs clear anteriorly, diminished breath sounds posterior bases. No wheezes, rhonchi or rales noted. On O2 nasal cannula 3 L abdomen soft Trace lower extremity edema Assessment & Plan Assessment/Plan (1) Chronic kidney disease, stage 3b: PLAN: Assessment/Plan: Patient is a 74-year-old male with past history of CKD stage G3b, type 2 diabetes mellitus, hypertension, CAD status post [place], ischemic cardiomyopathy with HFrEF (EF 25 to 30% on echocardiogram from 08/23/2024), COPD, pulmonary embolism, non-Hodgkin lymphoma, BPH, rheumatoid arthritis, major depressive disorder, generalized anxiety disorder and hyperlipidemia. Patient presented to hospital on 12/25/2024 with 3-day history of dyspnea, fever/chill. Patient was found to have CAP and is being treated with antibiotic for MRSA pneumonia. Nephrology is following for CKD stage G3b. Chronic kidney disease stage G3b. In July of this year, creatinine was close to 1.4-1.5 range. Over the last 2 to 3 months, creatinine has been between 1.8-2.0. Urinalysis appears to be fairly concentrated, 1+ protein, glycosuria from SGLT2 inhibitor, some cells. CT abdomen without any hydronephrosis. Renal function has been stable around his usual baseline during this admission. Serum creatinine today 1.69 mg/dL and has been ranging around 1.8 to 2 mg/dL despite continuation of IV bumetanide. We can consider transitioning patient to oral bumetanide when okay per primary team. Previous bumetanide home dose was 0.5 mg daily, will need higher dose at time of hospital discharge. Oxygen requirements have improved, possible discharge today. Will arrange for hospital follow-up in [place] office, discussed this with patient. Assessment and plan reviewed with Dr. Lopez.
--- NOTE | 2025-01-12 11:45 | DS.PCM_ITS ---
Providers Date of Admission: 12/25/24 Primary Care Physician: Dr. Donna Will MD Consultations 12/26/24 12:53 Consult: Infectious Disease Routine Consulting Provider: Wilberto Villafuerte Reason for Consult: Bilateral multi focal pneumonia, MRSA nasal screen positive EMERGENT Consult: No MD Notified: Yes Date Notified: 12/26/24 Time Notified: 12:53 Method of Notification: Text 01/03/25 17:12 Consult: Nephrology Routine Consulting Provider: Zaira Lopez Reason for Consult: ckd stage 4 EMERGENT Consult: No MD Notified: Yes Date Notified: 01/03/25 Time Notified: 17:12 Method of Notification: Text 01/07/25 12:05 Consult: Livery Car Driver / Pulmonary Medicine Routine Consulting Provider: Intensivists/Pulmonary Med Reason for Consult: non resolving Pneumonia, fever, ID request for consult EMERGENT Consult: No MD Notified: Yes Date Notified: 01/07/25 Time Notified: 12:05 Method of Notification: Text 01/07/25 13:16 Consult: Inpatient Palliative Care Routine Consulting Provider: Zee Mooney Reason for Consult: symtoms management EMERGENT Consult: No MD Notified: Yes Date Notified: 01/07/25 Time Notified: 13:21 Method of Notification: Text Reason For Visit: ACUTE ON CHRONIC RESP FAILURE PNA UTI Diagnosis Discharge Diagnosis (1) Pneumonia: Status: Acute Code(s): J18.9 - Pneumonia, unspecified organism (2) Chronic kidney disease, stage 3b: Status: Acute Code(s): N18.32 - Chronic kidney disease, stage 3b Plan Acute on Chronic Hypoxic and Hypercarbic Respiratory Failure * continues to remain stable. secondary to bilateral MRSA pneumonia: * Chest CTA shows bilateral patchy ground glass opacities/acinar densities predominantly right upper lobe. Bilateral pulmonary atelectatic changes with lower lobe bronchial wall thickening. PE ruled out. * Pneumonia workup shows respiratory panel and urinary antigens are negative. Triple PCR for SARS-CoV-2, flu and RSV are negative. Nasal MRSA screen positive. SCx positive for MRSA. * Patient empirically on IV vancomycin and pip/tazo. * 12/26: Overall patient feeling better than yesterday but is still mild short of breath at rest get worse on exertion. Sputum Gram stain pending. Continue IV antibiotics. Narrowed on the antibiotic Zosyn to Unasyn. Urine culture growing GPC Enterococcus (25,000 and yeastlike organism). UTI ruled out. * Oxygen overall had able to be weaned down, but since has been increasing. * 01/01: oxygen around 4.5. Still coughing up phlegm. Fevers overnight (Tmax 38.8). add PEP. * 01/10: overall improved. abx w doxycycline, meropenem, fluconazole and methylprednisolone. IV bumetanide * 01/12: change methylpred to prednisone for 5-day course. Abx dc'd on the . Change bumetanide to PO and discharge home. MRSA pneumonia * completed abx. Chronic medical conditions: * CAD: s/p LAD, RCA (2001) and L circumflex (2013), chronic HFrEF, chronic atrial fibrillation: Most recent echocardiogram 08/23/2024 with EF 25 to 30%, severe LV systolic dysfunction, no significant change from previous echocardiogram 05/2024 with EF at that time 25%Continue Coreg, statin therapy. It seems patient is not on baby aspirin probably due to GI bleed. Baby aspirin started as patient is high risk for cardiac complications including OH and stroke. Patient not on MEDHAT or ARB. 12/26: Bumex 0.5 mg oral changed to IV and Jardiance resumed. * Chronic macrocytic anemia/Fe deficiency anemia complicated by history of significant recurrent GI bleeds w/ AVMs: Admission hemoglobin 9.2, MCV 97.6, baseline hemoglobin 8-10, stable, continue to trend. Continue PPI iron supplementation. Monitor CBC following Hematology, most recent visit noted 12/06/24. * Hx VTE, DVT and BL PE: Most recent event 07/2021 BL PE, prior DVT, history of significant GI bleeds status post IVC filter placement. * Diabetes mellitus type II: Will hold oral regimen, continue long-acting insulin regimen, will maintain on ADA diet, accu checks with ISS. Increase glargine from 15 units QHS to 25 BID. Hopefully with deescalation of steroids and eventual discontinuation that will continue to improve. * Rheumatoid arthritis: Previously on rituximab and prior also noted to have been on low dose prednisone, will clarify if currently ongoing but may have been discontinued given GI bleed issues. * Hypertension: Continue home Coreg, Spironolactone, Lasix with hold parameters as needed given low-normal BP in the ED, PRN hydralazine. * Hyperlipidemia: Continue home statin therapy. * History of non-Hodgkin's lymphoma: Considered in remission, s/p ABVD and radiation 2010, encourage continued outpatient follow-up with oncology as previously arranged or needed. * Anxiety and depression: We will continue patient home escitalopram and mirtazapine regimen. * BPH with obstructive pathology: We will continue patient home finasteride and Flomax regimen. * Chronic Kidney Disease Stage IIIb: Admission BUN/Cr 50/2.04, GFR 33, baseline renal function more recently 1.7-2.7, seems to vacillate, most recently 12/06/2024 creatinine 2.70, repeat BMP in AM to elucidate current baseline.12/26: Patient creatinine slightly better, 1.8 today. Baseline Bumex 0.5 mg IV resumed. * GERD with history of significant recurrent GI bleeds with AVMs: Will continue patient on PPI, DVT prophylaxis: Heparin cautiously. Disposition: DC home with [facility]. Medications at Discharge Home Medications finasteride 5 mg tablet 5 mg PO DAILY prostate 08/14/22 tamsulosin 0.4 mg capsule 0.4 mg PO QHS prostate 08/14/22 multivitamin 1 tab PO DAILY vitamin 09/13/22 mirtazapine 15 mg tablet (Remeron) 7.5 mg (1/2 x 15 mg) PO QHS sleep #90 tabs 10/29/23 needle (disp) 32 gauge 32 gauge x 5/16 (Easy Touch Hypodermic Needle) #100 ea 11/12/23 pen needle, diabetic 32 gauge x 5/32 #100 ea 12/03/23 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 sensor (FreeStyle Basilio 3 Sensor device) #1 ea 12/24/23 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,facing slitter,cont (FreeStyle Basilio 3 [place]) #1 ea 12/24/23 ferrous sulfate 325 mg (65 mg iron) tablet (FeroSul) 325 mg PO QODAY Supplement 04/05/24 cholecalciferol (vitamin D3) 50 mcg (2,000 unit) capsule 50 mcg PO QDAY 06/28/24 pantoprazole 40 mg tablet,delayed release (Protonix) 40 mg PO DAILY 30 days #0 tabs 08/25/24 sennosides 8.6 mg-docusate sodium 50 mg tablet (Stimulant Laxative Plus) 2 tab PO BID PRN Constipation #0 tabs 08/25/24 albuterol sulfate 90 mcg/actuation aerosol inhaler 2 puff inhalation Q6 PRN shortness of breath or wheezing 09/24/24 budesonide 1 mg/2 mL suspension for nebulization 1 mg (2 mL) inhalation Q12H wheezing/SOB #120 mL 09/24/24 atorvastatin 40 mg tablet 40 mg PO QHS #90 tabs 10/08/24 carvedilol 6.25 mg tablet 6.25 mg PO BID BP #180 tabs 10/08/24 spironolactone 25 mg tablet 25 mg PO DAILY #90 tabs 10/08/24 empagliflozin 10 mg tablet (Jardiance) 10 mg PO DAILY #90 TABLETS 11/10/24 ipratropium 0.5 mg-albuterol 3 mg (2.5 mg base)/3 mL nebulization soln 3 ml inhalation Q4H PRN PRN SOB &/OR WHEEZING #270 mL 11/26/24 escitalopram oxalate 10 mg tablet 10 mg PO DAILY mood 90 days #90 tabs 11/29/24 insulin aspart U-100 100 unit/mL (3 mL) subcutaneous pen See Rx Instructions subcut .COMPLEX High Blood Glucose #15 mL 12/23/24 OXYGEN - Supplemental ([facility] INFORMATIONAL USE ONLY) hypoxia 12/25/24 aspirin 81 mg tablet,delayed release 81 mg PO BREAKFAST #0 tabs 01/12/25 bumetanide 0.5 mg tablet 1 mg (2 x 0.5 mg) PO QDAY #60 tabs 01/12/25 insulin glargine-yfgn 100 unit/mL (3 mL) subcutaneous pen 25 unit (0.25 mL) subcut BID #15 mL 01/12/25 prednisone 20 mg tablet 40 mg (2 x 20 mg) PO BREAKFAST #8 tabs 01/12/25 Hospital Course Summary of Care Provided Hospital Course: Greater than 40 minutes spent on discharge This is a 34-year-old male presents with chronic respiratory failure. Patient was treated for pneumonia as well as CHF during the course of his lengthy hospitalization. Patient overall improved. Was planning on the patient going to a chcf was noted but his strength did improve and he was contact- guard assist and will be going home with home health care. Patient did complete his antibiotics while he was in the hospital. Weight / BMI Weight Weight: 101.2 kg Body Mass Index (BMI) 31.1 ABG / Lab / Microbiology Data 01/11/25 05:22 01/12/25 06:28 Laboratory: Laboratory Results - last 24 hr 01/07/25 13:00: SS-A/Ro IgG Antibody TNP, SS-B/La IgG Antibody TNP, Double Strand DNA Ab TNP 01/11/25 12:38: POC Glucose > 500 H* 01/11/25 17:19: POC Glucose 338 H 01/11/25 21:43: POC Glucose 200 H 01/12/25 06:28: Sodium 135, Potassium 4.6, Chloride 100, Carbon Dioxide 22.2, Anion Gap 13, BUN 70 H, Creatinine 1.69 H, Estim Creat Clear Calc 45.76 L, Est GFR (MDRD) Non-Af 42 L, BUN/Creatinine Ratio 41.5 H, Glucose 396 H, Calcium 8.3 01/12/25 08:53: POC Glucose 340 H Microbiology: Microbiology 01/04/25 09:32 Blood Culture (Wb) - Right Hand Blood Culture - Final No growth in 5 days. 01/07/25 10:55 Mucosa - Nasopharyngeal SARS-CoV-2, Influenza & RSV (PCR) - Final 01/05/25 19:00 Urine, Clean Catch Legionella Antigen - Final 01/05/25 09:33 Mucosa - Nasopharyngeal Respiratory Panel (PCR) - Final 12/30/24 12:12 Blood Culture (Wb) - Anticubital Right Blood Culture - Final No growth in 5 days. 12/30/24 12:27 Blood Culture (Wb) - Left Hand Blood Culture - Final No growth in 5 days. 01/04/25 11:16 Stool Clostridioides difficile (PCR) - Final 01/01/25 17:30 Sputum, Expectorated/Coughed Gram Stain - Final 01/01/25 17:30 Sputum, Expectorated/Coughed Respiratory Culture - Final Presumptive C albicans 12/31/24 09:40 Urine, Clean Catch Urine Culture - Final Yeast, not Elisha albicans 12/30/24 14:15 Mucosa - Nasopharyngeal SARS-CoV-2, Influenza & RSV (PCR) - Final 12/24/24 23:21 Blood Culture (Wb) - Anticubital Left Blood Culture - Final No growth in 5 days. 12/25/24 00:33 Blood Culture (Wb) - Right Forearm Blood Culture - Final No growth in 5 days. 12/25/24 01:25 Urine, Clean Catch Urine Culture - Final Enterococcus faecalis Yeast, not Elisha albicans GNR lactose financial reporting consultant 12/25/24 20:10 Sputum, Expectorated/Coughed Gram Stain - Final 12/25/24 20:10 Sputum, Expectorated/Coughed Respiratory Culture - Final Presumptive C albicans 12/25/24 04:56 Mucosa - Nasopharyngeal Respiratory Panel (PCR) - Final 12/25/24 04:00 Nasal Secretion MRSA (PCR) - Final Meth. resistant Staph. aureus 12/25/24 01:25 Urine, Clean Catch Legionella Antigen - Final 12/25/24 01:25 Urine, Clean Catch Streptococcus pneumoniae Antigen (M - Final 12/24/24 23:30 Mucosa - Nose SARS-CoV-2, Influenza & RSV (PCR) - Final D/C Instructions DC O2, CPAP, BIPAP Needs Home O2 Discharge instructions: Yes Type of respiratory needs?: Oxygen Oxygen frequency: Continuous Continuous oxygen liters per minute: 3 DC home with Oxygen: Yes Home O2 MD Review: I have reviewed the oxygen testing, and the patient qualifies for home oxygen equipment and portability. The patient is mobile in the home and the community. Meaningful Use Info Meaningful Use Meaningful Use Diagnoses (Choose all that apply): CHF CHF MEDHAT/ARB ordered at discharge?: No Reason MEDHAT/ARB not ordered?: Worsening renal disease Documented LVEF (%): 25 Discharge Plan Admission Admit Date/Time: 12/25/24 02:11 Primary Reason for Your Visit: Pneumonia. CHF. Attending Provider: Marco Cruz Primary Care Provider: Donna Will Consulting Providers: Janice Mackey; Wilberto Villafuerte; Clive Shrap; Jordan Ortiz; Marco Cruz; Loki Lozoya; Zaira Lopez; Zee Bonilla Discharge Orders/Prescriptions Prescriptions: New aspirin 81 mg Tablet,Delayed Release (Dr/Ec) 81 mg PO BREAKFAST Qty: 0 0RF insulin glargine-yfgn 100 unit/mL (3 mL) Insulin Pen 25 unit subcut BID Qty: 15 0RF prednisone 20 mg Tablet 40 mg PO BREAKFAST Qty: 8 0RF Continued multivitamin Tablet 1 tab PO DAILY tamsulosin 0.4 mg capsule 0.4 mg PO QHS finasteride 5 mg tablet 5 mg PO DAILY (DME) pen needle, diabetic 32 gauge x 5/32 needle See Rx Instructions .ROUTE .MEDSUPPLY Qty: 100 5RF Rx Instructions: As directed albuterol sulfate 90 mcg/actuation HFA aerosol inhaler 2 puff inhalation Q6 PRN (Reason: shortness of breath or wheezing) budesonide 1 mg/2 mL suspension for nebulization 1 mg inhalation Q12H Qty: 120 11RF atorvastatin 40 mg tablet 40 mg PO QHS Qty: 90 3RF carvedilol 6.25 mg tablet 6.25 mg PO BID Qty: 180 3RF Rx Instructions: must administer with a meal/food spironolactone 25 mg tablet 25 mg PO DAILY Qty: 90 3RF Rx Instructions: Hold for serum potassium more than 5.0 ferrous sulfate [FeroSul] 325 mg (65 mg iron) Tablet 325 mg PO QODAY sennosides-docusate sodium [Stimulant Laxative Plus] 8.6-50 mg Tablet 2 tab PO BID PRN (Reason: Constipation) Qty: 0 0RF pantoprazole [Protonix] 40 mg tablet,delayed release (DR/EC) 40 mg PO DAILY 30 Days Qty: 0 0RF (DME) Easy Touch Hypodermic Needle 32 gauge x 5/16 needle See Rx Instructions .Route Qty: 100 0RF Rx Instructions: As directed OXYGEN - Supplemental ([facility] INFORMATIONAL USE ONLY) Patient Comments: patient stated he uses 3L at home. Couldn't tell me DME company mirtazapine [Remeron] 15 mg tablet 7.5 mg PO QHS Qty: 90 3RF (DME) FreeStyle Basilio 3 Sensor Device See Rx Instructions .Route Qty: 1 5RF Rx Instructions: As directed (DME) FreeStyle [place] 3 [place] Misc See Rx Instructions .Route Qty: 1 0RF Rx Instructions: As directed cholecalciferol (vitamin D3) 50 mcg (2,000 unit) capsule 50 mcg PO QDAY Jardiance 10 mg tablet 10 mg PO DAILY Qty: 90 0RF ipratropium-albuterol 0.5 mg-3 mg(2.5 mg base)/3 mL solution for nebulization 3 ml inhalation Q4H PRN PRN (Reason: SOB &/OR WHEEZING) Qty: 270 11RF escitalopram oxalate 10 mg tablet 10 mg PO DAILY 90 Days Qty: 90 3RF insulin aspart U-100 100 unit/mL (3 mL) insulin pen See Rx Instructions subcut .COMPLEX MDD 26 Qty: 15 2RF Protocol: 3. Sliding Scale Insulin Med Dosing Condition: 150-189 mg/dl = 1 unit Condition: 190-229 mg/dl = 2 units Condition: 230-269 mg/dl = 3 units Condition: 270-309 mg/dl = 4 units Condition: 310-349 mg/dl = 5 units Condition: 350-399 mg/dl = 6 units Condition: 400-449 mg/dl = 7 units Condition: Greater than 449 call physician Protocol Text: Suggested for: - Patients on Total Daily Insulin Dose of 37-55 units - Obese, infected, or steroid patients MEDIUM DOSING ALGORITHIM Rx Instructions: Take 14 units with breakfast, 16 units with lunch, 16 units with supper plus additional sliding Scale: For blood sugar of 190-229 add 2 units, 230-269 add 3 units, 270 or above add 4 units. Changed bumetanide 0.5 mg tablet 1 mg PO QDAY Qty: 60 1RF Discontinued insulin glargine-yfgn 100 unit/mL (3 mL) insulin pen See Rx Instructions subcut BIDCM Qty: 15 10RF Rx Instructions: subcutaneously twice daily with meals; Referrals / Follow Up: [facility] [Provider Group] - Within 1 Month Donna Will MD [Primary Care Provider, Internal Medicine - [facility]] Disposition Disposition (needs filled in before D/C Order can be placed): Home Health Service Charges/Coding Visit Charges Inpatient E&M: 78475 Disch Hosp >30min
--- NOTE | 2025-01-12 14:07 | PHA.DC_ITS ---
Pharmacy [facility] Counseling Pharmacy Service has performed discharge medication reconciliation and counseling for this patient. 1. ASPIRIN 81MG PO DAILY 2. PREDNISONE 40MG PO BREAKFAST X 4 DAYS 3. INSULIN GLARGINE INCREASED TO 25 UNITS BID 4. BUMETANIDE INCREASED TO 1MG The patient's discharge medication list was reviewed for discrepancies and discrepancies were resolved. The patient was counseled on the following discharge medications and changes in medications for homegoing were reviewed. The Reason for Use, instructions for use, and potential side effects were reviewed for all new medications. The patient's questions regarding all of their medications were answered. The patient was able to verbally demonstrate an understanding of their discharge medications. Patient counseled by pharmacy clinical specialistKhris. Medications at Discharge Home Medications finasteride 5 mg tablet 5 mg PO DAILY prostate 08/14/22 tamsulosin 0.4 mg capsule 0.4 mg PO QHS prostate 08/14/22 multivitamin 1 tab PO DAILY vitamin 09/13/22 mirtazapine 15 mg tablet (Remeron) 7.5 mg (1/2 x 15 mg) PO QHS sleep #90 tabs 10/29/23 needle (disp) 32 gauge 32 gauge x 5/16 (Easy Touch Hypodermic Needle) #100 ea 11/12/23 pen needle, diabetic 32 gauge x 5/32 #100 ea 12/03/23 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 sensor (FreeStyle Basilio 3 Sensor device) #1 ea 12/24/23 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,seat builder,cont (FreeStyle Basilio 3 [place]) #1 ea 12/24/23 ferrous sulfate 325 mg (65 mg iron) tablet (FeroSul) 325 mg PO QODAY Supplement 04/05/24 cholecalciferol (vitamin D3) 50 mcg (2,000 unit) capsule 50 mcg PO QDAY 06/28/24 pantoprazole 40 mg tablet,delayed release (Protonix) 40 mg PO DAILY 30 days #0 tabs 08/25/24 sennosides 8.6 mg-docusate sodium 50 mg tablet (Stimulant Laxative Plus) 2 tab PO BID PRN Constipation #0 tabs 08/25/24 albuterol sulfate 90 mcg/actuation aerosol inhaler 2 puff inhalation Q6 PRN shortness of breath or wheezing 09/24/24 budesonide 1 mg/2 mL suspension for nebulization 1 mg (2 mL) inhalation Q12H wheezing/SOB #120 mL 09/24/24 atorvastatin 40 mg tablet 40 mg PO QHS #90 tabs 10/08/24 carvedilol 6.25 mg tablet 6.25 mg PO BID BP #180 tabs 10/08/24 spironolactone 25 mg tablet 25 mg PO DAILY #90 tabs 10/08/24 empagliflozin 10 mg tablet (Jardiance) 10 mg PO DAILY #90 TABLETS 11/10/24 ipratropium 0.5 mg-albuterol 3 mg (2.5 mg base)/3 mL nebulization soln 3 ml inhalation Q4H PRN PRN SOB &/OR WHEEZING #270 mL 11/26/24 escitalopram oxalate 10 mg tablet 10 mg PO DAILY mood 90 days #90 tabs 11/29/24 insulin aspart U-100 100 unit/mL (3 mL) subcutaneous pen See Rx Instructions subcut .COMPLEX High Blood Glucose #15 mL 12/23/24 OXYGEN - Supplemental ([facility] INFORMATIONAL USE ONLY) hypoxia 12/25/24 aspirin 81 mg tablet,delayed release 81 mg PO BREAKFAST #0 tabs 01/12/25 bumetanide 0.5 mg tablet 1 mg (2 x 0.5 mg) PO QDAY #60 tabs 01/12/25 insulin glargine-yfgn 100 unit/mL (3 mL) subcutaneous pen 25 unit (0.25 mL) subcut BID #15 mL 01/12/25 prednisone 20 mg tablet 40 mg (2 x 20 mg) PO BREAKFAST #8 tabs 01/12/25
== END 2025-01-12 16:21 | disposition home health service (06) | DRG 177 ==
LOC: ED 12-25 02:24 → PCU 12-25 02:34
PROVIDERS: Family Medicine; Hospitalist; Internal Medicine; Internal Medicine Critical Care Medicine; Internal Medicine Infectious Disease; Nurse Practitioner Adult Health; Admitting Provider Family Medicine; Emergency Provider Emergency Medicine; PCP Internal Medicine
DX: J15.212 Pneumonia due to Methicillin resistant Staphylococcus aureus (principal); J96.21 Acute and chronic respiratory failure with hypoxia; J96.22 Acute and chronic respiratory failure with hypercapnia; N13.8 Other obstructive and reflux uropathy; J44.0 Chronic obstructive pulmonary disease with (acute) lower respiratory infection; I48.20 Chronic atrial fibrillation, unspecified; I50.22 Chronic systolic (congestive) heart failure; I13.0 Hypertensive heart and chronic kidney disease with heart failure and stage 1 through stage 4 chronic kidney disease, or unspecified chronic kidney disease; B37.9 Candidiasis, unspecified; E11.22 Type 2 diabetes mellitus with diabetic chronic kidney disease; Z51.5 Encounter for palliative care; N18.32 Chronic kidney disease, stage 3b; D50.9 Iron deficiency anemia, unspecified; Z79.4 Long term (current) use of insulin; I25.10 Atherosclerotic heart disease of native coronary artery without angina pectoris; E78.00 Pure hypercholesterolemia, unspecified; I25.2 Old myocardial infarction; F41.8 Other specified anxiety disorders; K21.9 Gastro-esophageal reflux disease without esophagitis; Z66 Do not resuscitate; Z79.84 Long term (current) use of oral hypoglycemic drugs; Z87.891 Personal history of nicotine dependence; Z79.51 Long term (current) use of inhaled steroids; Z95.5 Presence of coronary angioplasty implant and graft; Z92.3 Personal history of irradiation; Z79.899 Other long term (current) drug therapy; Z23 Encounter for immunization; Z99.81 Dependence on supplemental oxygen; Z85.828 Personal history of other malignant neoplasm of skin; N40.1 Benign prostatic hyperplasia with lower urinary tract symptoms
CPT/HCPCS: 36415; 36600; 71045; 71046; 71250; 71275; 74176; 80048; 80053; 80202; 81001; 82803; 82962; 83605; 83735; 83880; 84145; 85014; 85018; 85025; 85027; 86037; 86038; 86200; 86225; 86431; 86850; 86900; 86901; 87040; 87070; 87077; 87086; 87088; 87149; 87186; 87205; 87449; 87493; 87631; 87633; 87641; 93005; 93970; 94640; 94660; 94667; 94668; 94762; 97110; 97116; 97162; 97165; 97530; 97535; 99285; 99406; J2185; P9016; Q9967; A4216; J0295; J2405

== ENCOUNTER 2025-01-27 11:44 | Inpatient (IN) | payer MEDICARE, SELFPAY ==
[2025-01-27] VITALS (10 sets, daily range): BP systolic 102–112; BP diastolic 57–69; PULSE 67–116; RESP 16–20; TEMP 36.4–37.4; O2SAT 92–100; BMI 28.8; BMI 27.4
--- NOTE | 2025-01-27 11:59 | EDS_ITS ---
HPI History of Present Illness Chief Complaint: Shortness of Breath Narrative Narrative: Patient is a 74-year-old male presenting to the emergency department for dyspnea, generalized weakness and productive cough. Patient has an extensive past medical history including CKD, CHF, community-acquired pneumonia, A-fib, ischemic cardiomyopathy, COPD, anemia, pleural effusions, aspiration risk, non- Hodgkin's lymphoma, CAD with stent placement 2013, hypertension, PE. Is not on any OAC. Had pneumonia in December and wears 4 L at baseline. Lives at home with son and [id number]. Reportedly was tripoding on EMS arrival and was given DuoNeb and Solu-Medrol. When history is obtained from patient he states that he was not short of breath and does not feel short of breath at this time. He denies any chest pain. He does endorse generalized weakness and a productive cough of yellow sputum over the past few days. He denies any diaphoresis, abdominal pain, nausea or vomiting. Denies any lower extremity edema. [facility] Medical History Chronic kidney disease, stage 3b Diabetes mellitus type 2, insulin dependent Renal insufficiency Type 2 NE (myocardial infarction) MRSA (methicillin resistant staph aureus) culture positive Ischemic cardiomyopathy COVID-19 Lethargic COPD with acute exacerbation Elevated troponin I level LUIS (acute kidney injury) Hypoxemia Chronic kidney disease (CKD), stage III (moderate) Acute hypoxic on chronic hypercapnic respiratory failure FTT (failure to thrive) in adult Former smoker On home oxygen therapy Bleeding tendency Ulcer High cholesterol History of stress test HTN (hypertension) Tobacco abuse History of pulmonary embolus (PE) (04/30/21) Essential hypertension Type 2 diabetes mellitus DVT (deep venous thrombosis) (05/01/21) Rhinovirus Acute respiratory failure with hypoxia Physical debility COVID-19 in immunocompromised patient Nicotine dependence, cigarettes, uncomplicated Diabetes Arthritis Cancer COPD (chronic obstructive pulmonary disease) History of basal cell carcinoma Atherosclerosis of coronary artery of [place] heart without angina pectoris Pneumonia Non-Hodgkin lymphoma History of pilonidal cyst Allergic rhinitis 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 complications Gastritis Colon polyp Obesity Asthma Chronic bronchitis Positive colorectal cancer screening using Cologuard test RA (rheumatoid arthritis) Home Medications ?Medication ?Instructions ?Recorded ?Last Taken ?Type finasteride 5 mg tablet 5 mg PO DAILY prostate 08/1407/07/24 History tamsulosin 0.4 mg capsule 0.4 mg PO QHS prostate 08/1407/07/24 History multivitamin 1 tab PO DAILY vitamin 09/1307/07/24 History mirtazapine 15 mg tablet (Remeron) 7.5 mg (1/2 x 15 mg ) PO QHS sleep 10/29/23 07/07/24 Rx #90 tabs needle (disp) 32 gauge 32 gauge x #100 ea 11/12/23 Unk nown Rx 07/09 (Easy Touch Hypodermic Needle) 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 sensor (FreeStyle #1 ea 12/24/23 Unknown Rx Basilio 3 Sensor device) 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,cardiac cath lab manager,cont #1 ea 12/24/23 Unknown Rx (FreeStyle Basilio 3 [place]) ferrous sulfate 325 mg (65 mg 325 mg PO QODAY Suppleme nt 04/05/24 07/07/24 History iron) tablet (FeroSul) cholecalciferol (vitamin D3) 50 50 mcg PO QDAY 5 07/07/24 History mcg (2,000 unit) capsule pantoprazole 40 mg tablet,delayed 40 mg PO DAILY 30 da ys #0 tabs 08/25/24 07/07/24 Rx release (Protonix) sennosides 8.6 mg-docusate sodium 2 tab PO BID PRN Con stipation #0 08/25/24 Unknown Rx 50 mg tablet (Stimulant Laxative tabs Plus) albuterol sulfate 90 mcg/actuation 2 puff inhalation Q 6 PRN shortness 09/24/24 Unknown History aerosol inhaler of breath or wheezing budesonide 1 mg/2 mL suspension 1 mg (2 mL) inhalation Q12H 09/24/24 Unknown Rx for nebulization wheezing/SOB #120 mL atorvastatin 40 mg tablet 40 mg PO QHS #90 tabs Unknown Rx carvedilol 6.25 mg tablet 6.25 mg PO BID BP #180 tabs 10/08/24 Unknown Rx spironolactone 25 mg tablet 25 mg PO DAILY #90 tabs Unknown Rx empagliflozin 10 mg tablet 10 mg PO DAILY #90 TABLETS 11/10/24 Unknown Rx (Jardiance) ipratropium 0.5 mg-albuterol 3 mg 3 ml inhalation Q4H PRN PRN SOB 11/26/24 Unknown Rx (2.5 mg base)/3 mL nebulization &/OR WHEEZING #270 mL soln escitalopram oxalate 10 mg tablet 10 mg PO DAILY mood 90 days #90 11/29/24 Unknown Rx tabs insulin aspart U-100 100 unit/mL See Rx Instructions s ubcut 12/23/24 Unknown Rx (3 mL) subcutaneous pen .COMPLEX High Blood Glucose #15 mL OXYGEN - Supplemental ([facility] hypoxia 12/25/24 01/27/25 [facility] ist[facility] INFORMATIONAL USE ONLY) aspirin 81 mg tablet,delayed 81 mg PO BREAKFAST #0 tab s 01/12/25 Unknown Rx release bumetanide 0.5 mg tablet 1 mg (2 x 0.5 mg) PO QDAY #6 0 tabs 01/12/25 Unknown Rx insulin glargine-yfgn 100 unit/mL 25 unit (0.25 mL) joyce bcut BID #15 mL 01/12/25 Unknown Rx (3 mL) subcutaneous pen prednisone 20 mg tablet 40 mg (2 x 20 mg) PO BREAKFA ST #8 01/12/25 Unknown Rx tabs pen needle, diabetic 32 gauge x #100 ea 01/13/25 Unkno wn Rx Allergy/AdvReac Type Severity Reaction Status Date / Time No Known Allergies Allergy Verified 01/27/25 11:51 Family History
--- NOTE | 2025-01-27 11:59 | ED.VIS.DYS ---
HPI History of Present Illness Chief Complaint: Shortness of Breath Narrative Narrative: Patient is a 74-year-old male presenting to the emergency department for dyspnea, generalized weakness and productive cough. Patient has an extensive past medical history including CKD, CHF, community-acquired pneumonia, A-fib, ischemic cardiomyopathy, COPD, anemia, pleural effusions, aspiration risk, non-Hodgkin's lymphoma, CAD with stent placement 2013, hypertension, PE. Is not on any OAC. Had pneumonia in December and wears 4 L at baseline. Lives at home with son and [id number]. Reportedly was tripoding on EMS arrival and was given DuoNeb and Solu-Medrol. When history is obtained from patient he states that he was not short of breath and does not feel short of breath at this time. He denies any chest pain. He does endorse generalized weakness and a productive cough of yellow sputum over the past few days. He denies any diaphoresis, abdominal pain, nausea or vomiting. Denies any lower extremity edema. [facility] Medical History Chronic kidney disease, stage 3b Diabetes mellitus type 2, insulin dependent Renal insufficiency Type 2 NV (myocardial infarction) MRSA (methicillin resistant staph aureus) culture positive Ischemic cardiomyopathy COVID-19 Lethargic COPD with acute exacerbation Elevated troponin I level LUIS (acute kidney injury) Hypoxemia Chronic kidney disease (CKD), stage III (moderate) Acute hypoxic on chronic hypercapnic respiratory failure FTT (failure to thrive) in adult Former smoker On home oxygen therapy Bleeding tendency Ulcer High cholesterol History of stress test HTN (hypertension) Tobacco abuse History of pulmonary embolus (PE) (04/30/21) Essential hypertension Type 2 diabetes mellitus DVT (deep venous thrombosis) (05/01/21) Rhinovirus Acute respiratory failure with hypoxia Physical debility COVID-19 in immunocompromised patient Nicotine dependence, cigarettes, uncomplicated Diabetes Arthritis Cancer COPD (chronic obstructive pulmonary disease) History of basal cell carcinoma Atherosclerosis of coronary artery of [place] heart without angina pectoris Pneumonia Non-Hodgkin lymphoma History of pilonidal cyst Allergic rhinitis 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 complications Gastritis Colon polyp Obesity Asthma Chronic bronchitis Positive colorectal cancer screening using Cologuard test RA (rheumatoid arthritis) Home Medications ?Medication ?Instructions ?Recorded ?Last Taken ?Type finasteride 5 mg tablet 5 mg PO DAILY prostate 08/14/22 07/07/24 History tamsulosin 0.4 mg capsule 0.4 mg PO QHS prostate 08/14/22 07/07/24 History multivitamin 1 tab PO DAILY vitamin 09/13/22 07/07/24 History mirtazapine 15 mg tablet (Remeron) 7.5 mg (1/2 x 15 mg) PO QHS sleep 10/29/23 07/07/24 Rx #90 tabs needle (disp) 32 gauge 32 gauge x #100 ea 11/12/23 Unknown Rx 5/16 (Easy Touch Hypodermic Needle) 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 sensor (FreeStyle #1 ea 12/24/23 Unknown Rx Basilio 3 Sensor device) 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,web search evaluator,cont #1 ea 12/24/23 Unknown Rx (FreeStyle Basilio 3 Rockfall) ferrous sulfate 325 mg (65 mg 325 mg PO QODAY Supplement 04/05/24 07/07/24 History iron) tablet (FeroSul) cholecalciferol (vitamin D3) 50 50 mcg PO QDAY 06/28/24 07/07/24 History mcg (2,000 unit) capsule pantoprazole 40 mg tablet,delayed 40 mg PO DAILY 30 days #0 tabs 08/25/24 07/07/24 Rx release (Protonix) sennosides 8.6 mg-docusate sodium 2 tab PO BID PRN Constipation #0 08/25/24 Unknown Rx 50 mg tablet (Stimulant Laxative tabs Plus) albuterol sulfate 90 mcg/actuation 2 puff inhalation Q6 PRN shortness 09/24/24 Unknown History aerosol inhaler of breath or wheezing budesonide 1 mg/2 mL suspension 1 mg (2 mL) inhalation Q12H 09/24/24 Unknown Rx for nebulization wheezing/SOB #120 mL atorvastatin 40 mg tablet 40 mg PO QHS #90 tabs 10/08/24 Unknown Rx carvedilol 6.25 mg tablet 6.25 mg PO BID BP #180 tabs 10/08/24 Unknown Rx spironolactone 25 mg tablet 25 mg PO DAILY #90 tabs 10/08/24 Unknown Rx empagliflozin 10 mg tablet 10 mg PO DAILY #90 TABLETS 11/10/24 Unknown Rx (Jardiance) ipratropium 0.5 mg-albuterol 3 mg 3 ml inhalation Q4H PRN PRN SOB 11/26/24 Unknown Rx (2.5 mg base)/3 mL nebulization &/OR WHEEZING #270 mL soln escitalopram oxalate 10 mg tablet 10 mg PO DAILY mood 90 days #90 11/29/24 Unknown Rx tabs insulin aspart U-100 100 unit/mL See Rx Instructions subcut 12/23/24 Unknown Rx (3 mL) subcutaneous pen .COMPLEX High Blood Glucose #15 mL OXYGEN - Supplemental ([facility] hypoxia 12/25/24 01/27/25 History INFORMATIONAL USE ONLY) aspirin 81 mg tablet,delayed 81 mg PO BREAKFAST #0 tabs 01/12/25 Unknown Rx release bumetanide 0.5 mg tablet 1 mg (2 x 0.5 mg) PO QDAY #60 tabs 01/12/25 Unknown Rx insulin glargine-yfgn 100 unit/mL 25 unit (0.25 mL) subcut BID #15 mL 01/12/25 Unknown Rx (3 mL) subcutaneous pen prednisone 20 mg tablet 40 mg (2 x 20 mg) PO BREAKFAST #8 01/12/25 Unknown Rx tabs pen needle, diabetic 32 gauge x #100 ea 01/13/25 Unknown Rx Allergy/AdvReac Type Severity Reaction Status Date / Time No Known Allergies Allergy Verified 01/27/25 11:51 Family History Father Arthritis Bleeding disorder Hypertension Kidney disease Cancer Skin Anemia blood clots Emphysema lung Mother Colon cancer Cancer Lung Cancer Diabetes Brother Thyroid disorder Surgical History History of embolic filter insertion History of heart artery stent Status post cardiac surgery H/O cardiac catheterization Presence of IVC filter (04/2021) History of coronary artery stent placement (10/22/13) History of thymectomy Hx of lymph node excision History of excision of pilonidal cyst Social History household members: spouse Smoking Status: Former smoker Tobacco: How many years used: 55 second hand exposure: Yes alcohol intake: current alcohol intake frequency: holidays/special occasions only substance use type: does not use caffeine: Yes Type: coffee Number of servings: 3 what type of physical activity do you participate in: none frequency: does not exercise seatbelt use: always ROS ROS ED ROS Narrative See HPI EXAM Physical Exam Narrative Exam Narrative: Vital signs: Reviewed General: Alert and oriented x 3. No acute distress. Chronically ill-appearing, nontoxic. HEENT: Head is normocephalic and atraumatic, sinuses nontender, pupils equal round and reactive. Nares are patent. Oropharynx and throat exams normal. Neck: Supple without lymphadenopathy nontender Cardiovascular: Regular rate and rhythm, no murmurs. No rubs or gallops. Normal S1 and S2 Respiratory: Decreased lung sounds throughout. No wheezes, rales, rhonchi. 4 L nasal cannula saturating 96%. Abdominal: Soft and nontender. Normal bowel sounds. No guarding or rebound. Nonsurgical abdomen Extremities: No lower extremity edema. No tenderness. No bruising. Normal range of motion. Normal sensation. Skin: No rash or redness. The rest of the physical exam is unremarkable Const Vital Signs: 01/27/25 11:45 01/27/25 11:51 01/27/25 12:08 Temperature 99.3 F H 99.3 F H Temperature Source Oral Oral Pulse Rate 88 80 Respiratory Rate 16 20 H Respiratory Effort Respiratory Depth Respiratory Pattern Blood Pressure 107/69 107/69 Blood Pressure Mean 81 81 Pulse Ox 92 96 Oxygen Delivery Method Nasal Cannula Nasal Cannula Nasal Cannula Oxygen Flow Rate (L/min) 3 2 4 01/27/25 12:19 01/27/25 12:51 01/27/25 13:00 Temperature 98.8 F 98.8 F Temperature Source Oral Oral Pulse Rate 83 83 Respiratory Rate 19 H 19 H Respiratory Effort Normal Non-Labored Respiratory Depth Normal Respiratory Pattern Normal Blood Pressure 103/61 103/61 Blood Pressure Mean 75 75 Pulse Ox 97 97 Oxygen Delivery Method Nasal Cannula Nasal Cannula Oxygen Flow Rate (L/min) 4 4 01/27/25 14:00 01/27/25 14:41 01/27/25 15:00 Temperature 98.8 F 98.8 F 98.2 F Temperature Source Oral Oral Pulse Rate 81 81 79 Respiratory Rate 20 H 20 H 19 H Respiratory Effort Respiratory Depth Respiratory Pattern Blood Pressure 109/69 109/69 102/57 L Blood Pressure Mean 82 82 72 Pulse Ox 97 97 97 Oxygen Delivery Method Nasal Cannula Nasal Cannula Oxygen Flow Rate (L/min) 4 4 MDM MDM MDM Narrative Medical decision making narrative: Patient is a 74-year-old male presenting to the emergency department for reported shortness of breath generalized weakness and productive cough for the past few days. Patient was seen and examined. Vitals are stable. Patient is on his baseline 4 L nasal cannula saturating 96%. He is borderline febrile at 99.3. Respirations of 16-20. Pulse of 80. Stable BP of 107/69. He is resting in bed comfortably no acute distress. Differential includes but is not limited to: Pneumonia, URI, ACS, COPD exacerbation, CHF exacerbation, pleural effusions, PE EKG shows normal sinus rhythm with no ischemic changes. No dysrhythmia. Rate of 88. Patient was already given 1 DuoNeb and Solu-Medrol by EMS. He has no wheezing on exam, I do not think he requires any more breathing treatments at this time. Will perform a septic workup given his borderline fever. Initially was going to obtain CTA imaging of his chest to rule out PE however on further chart review he does have an IVC filter and GFR is 29. Will obtain CT without contrast to further evaluate for pneumonia, pleural effusion. CBC with mild nonspecific leukocytosis of 13.5 and chronic anemia of 9.2. BMP with baseline CKD, hyperglycemia of 218, normal bicarb no evidence of DKA. Lactic within normal limits. Viral swab negative. BNP mildly elevated at 2476, however this is much improved from prior at the beginning of December when is was in the 6000s. Troponin of 130 and reflex of 126, prior of 97 in July however at that time GFR was in the 50s. CT chest shows coronary artery calcification is present. Bronchiectasis at both bases with mild scarring. No focal infiltrate is seen. I suspect the patient was likely having a COPD exacerbation that improved with EMS measures. Patient was updated on the negative findings. He attempted to ambulate but reported that he was too weak and could not. States since he has been unable to ambulate. Will require admission for failure to thrive. Clinical impression: Dyspnea Failure to thrive Generalized weakness History & Record Review Discussion w/independent historian: Patient and Family (son states that normally the patient ambulates without difficulty) Additional record(s) reviewed:: Prior labs Lab Data Attestation: I reviewed the patient's lab results. Labs: Laboratory Results - last 24 hr 01/27/25 01/27/25 12:05 13:54 WBC 13.5 H RBC 2.93 L Hgb 9.2 L Hct 28.9 L MCV 98.6 H MCH 31.4 MCHC 31.8 L RDW Std Deviation 64.0 H RDW Coeff of Rafael 18.1 H Plt Count 130 L MPV 11.3 Immature Gran % (Auto) 0.700 Neut % (Auto) 74.3 H Lymph % (Auto) 12.9 L [place] % (Auto) 9.9 Eos % (Auto) 1.9 Baso % (Auto) 0.3 Absolute Neuts (auto) 10.1 H Absolute Lymphs (auto) 1.74 Nucleated RBC % 0.1 Sodium 138 Potassium 5.1 Chloride 98 Carbon Dioxide 23.3 Anion Gap 16 H BUN 58 H Creatinine 2.27 H Estim Creat Clear Calc 32.91 L Est GFR (MDRD) Non-Af 29 L BUN/Creatinine Ratio 25.7 H Glucose 218 H Lactic Acid 1.5 Calcium 8.8 Troponin T High Sens 130 H* D Troponin T Hi Sens 2 Hr 126 H* NT pro BNP II 2476 H Radiography Diagnostic Testing: Clinical Impression(s) from Imaging Studies Chest CT 01/27/25 12:07 IMPRESSION: Coronary artery calcification (CAC) is is present Bronchiectasis at both bases with mild scarring. No focal infiltrate is seen. Reading Location: [place] [address] Discharge Plan Triage Chief Complaint: Shortness of Breath ED Provider: Kesha Newman Dx/Rx/DC Orders Prescriptions: No Action multivitamin Tablet 1 tab PO DAILY tamsulosin 0.4 mg capsule 0.4 mg PO QHS finasteride 5 mg tablet 5 mg PO DAILY albuterol sulfate 90 mcg/actuation HFA aerosol inhaler 2 puff inhalation Q6 PRN (Reason: shortness of breath or wheezing) budesonide 1 mg/2 mL suspension for nebulization 1 mg inhalation Q12H Qty: 120 11RF atorvastatin 40 mg tablet 40 mg PO QHS Qty: 90 3RF carvedilol 6.25 mg tablet 6.25 mg PO BID Qty: 180 3RF Rx Instructions: must administer with a meal/food spironolactone 25 mg tablet 25 mg PO DAILY Qty: 90 3RF Rx Instructions: Hold for serum potassium more than 5.0 ferrous sulfate [FeroSul] 325 mg (65 mg iron) Tablet 325 mg PO QODAY sennosides-docusate sodium [Stimulant Laxative Plus] 8.6-50 mg Tablet 2 tab PO BID PRN (Reason: Constipation) Qty: 0 0RF pantoprazole [Protonix] 40 mg tablet,delayed release (DR/EC) 40 mg PO DAILY 30 Days Qty: 0 0RF (DME) Easy Touch Hypodermic Needle 32 gauge x 5/16 needle See Rx Instructions .Route Qty: 100 0RF Rx Instructions: As directed OXYGEN - Supplemental ([facility] INFORMATIONAL USE ONLY) Patient Comments: patient stated he uses 3L at home. Couldn't tell me DME company aspirin 81 mg Tablet,Delayed Release (Dr/Ec) 81 mg PO BREAKFAST Qty: 0 0RF insulin glargine-yfgn 100 unit/mL (3 mL) Insulin Pen 25 unit subcut BID Qty: 15 0RF prednisone 20 mg Tablet 40 mg PO BREAKFAST Qty: 8 0RF bumetanide 0.5 mg tablet 1 mg PO QDAY Qty: 60 1RF mirtazapine [Remeron] 15 mg tablet 7.5 mg PO QHS Qty: 90 3RF (DME) FreeStyle Basilio 3 Sensor Device See Rx Instructions .Route Qty: 1 5RF Rx Instructions: As directed (DME) FreeStyle Basilio 3 Rockfall Misc See Rx Instructions .Route Qty: 1 0RF Rx Instructions: As directed cholecalciferol (vitamin D3) 50 mcg (2,000 unit) capsule 50 mcg PO QDAY Jardiance 10 mg tablet 10 mg PO DAILY Qty: 90 0RF ipratropium-albuterol 0.5 mg-3 mg(2.5 mg base)/3 mL solution for nebulization 3 ml inhalation Q4H PRN PRN (Reason: SOB &/OR WHEEZING) Qty: 270 11RF escitalopram oxalate 10 mg tablet 10 mg PO DAILY 90 Days Qty: 90 3RF insulin aspart U-100 100 unit/mL (3 mL) insulin pen See Rx Instructions subcut .COMPLEX MDD 26 Qty: 15 2RF Protocol: 3. Sliding Scale Insulin Med Dosing Condition: 150-189 mg/dl = 1 unit Condition: 190-229 mg/dl = 2 units Condition: 230-269 mg/dl = 3 units Condition: 270-309 mg/dl = 4 units Condition: 310-349 mg/dl = 5 units Condition: 350-399 mg/dl = 6 units Condition: 400-449 mg/dl = 7 units Condition: Greater than 449 call physician Protocol Text: Suggested for: - Patients on Total Daily Insulin Dose of 37-55 units - Obese, infected, or steroid patients MEDIUM DOSING ALGORITHIM Rx Instructions: Take 14 units with breakfast, 16 units with lunch, 16 units with supper plus additional sliding Scale: For blood sugar of 190-229 add 2 units, 230-269 add 3 units, 270 or above add 4 units. (DME) pen needle, diabetic 32 gauge x 5/32 needle See Rx Instructions .ROUTE .MEDSUPPLY Qty: 100 5RF Rx Instructions: As directed Primary Care Provider: Donna Will Referrals: Donna Will MD [Primary Care Provider, Internal Medicine - [facility]] Print Language: Ivorian
--- NOTE | 2025-01-27 12:07 | EKG12_ITS ---
Test Reason : SOB Blood Pressure : */* mmHG Vent. Rate : 88 BPM Atrial Rate : 88 BPM P-R Int : 128 ms QRS Dur : 106 ms QT Int : 390 ms P-R-T Axes : -7 28 23 degrees QTcB Int : 471 ms Normal sinus rhythm Possible Inferior infarct , age undetermined Abnormal ECG Confirmed by IAM TEIXEIRA, HAVEN ([id number]), newspaper or periodical editor APOLONIA GUERRERO ([id number]) on 01/28/2025 9:13:35 AM Referred By: Confirmed By: HAVEN VITALE MD
--- NOTE | 2025-01-27 12:07 | CT_ITS ---
PROCEDURE: CHEST WITHOUT CONTRAST 01/27/2025 REASON FOR EXAM: SOB, RECENT PNEUMONIA TECHNIQUE: Chest CT without contrast. Coronal and Sagittal reconstruction series were provided. One or more dose reduction techniques were used (e.g., Automated exposure control, adjustment of the mA and/or kV according to patient size, use of iterative reconstruction technique RADIATION DOSE SUMMARY: CTDlvol: 15.62 mGy DLP: 539.58 mGycm COMPARISON: Prior CT scan dated January 04, 2025. FINDINGS: Hardware: EKG electrodes. Lymph nodes: No suspicious lymph nodes are seen. Heart and Vasculature: Prior midline sternotomy. Atherosclerotic calcifications of the thoracic aorta. Thoracic aorta and pulmonary arteries have normal contours; noncontrast technique limits evaluation. Coronary Artery Calcifications: Present Lungs and Airways: There is evidence of bronchiectasis in both lower lobes. Questionable small amount of fluid within the dilated bronchi at the lung bases. The previously seen left basilar infiltrate as cleared. Mild residual scarring at the lung bases. No acute infiltrate is seen. Pleura: No significant pleural effusion. Upper Abdomen: Small layering gallstones at the dependent portion of the gallbladder lumen. Stable cyst in the upper medial portion of the right kidney. Bones: Degenerative changes of the thoracic spine. CT/Chest without Contrast IMPRESSION: Coronary artery calcification (CAC) is is present Bronchiectasis at both bases with mild scarring. No focal infiltrate is seen. Reading Location: [place] [id number]
[2025-01-27 12:20] LABS: Hematocrit 28.9 % (40-54); Hemoglobin 9.2 g/dL (13.0-16.5); Immature Granulocytes Count 0.100 X10^3/uL (0.0-0.0); Mean Corp Hgb Conc 31.8 g/dL (32-36); Mean Corpuscular Volume 98.6 fL (80-94); Mean Platelet Vol. 11.3 fl (6.2-12.0); NRBC Flagged by Analyzer 0.1 % (0-5); Platelet Count 130 K/mm3 (150-450); RBC Distribution Width CV 18.1 % (11.6-14.6); RBC Distribution Width SD 64.0 fl (35.1-43.9); Red Blood Count 2.93 M/mm3 (4.6-6.2); White Blood Count 13.5 K/mm3 (4.4-11.0)
[2025-01-27 12:44] LABS: Anion Gap 16 (5-15); BUN 58 mg/dL (4-19); BUN/Creat Ratio 25.7 RATIO (10-20); Calcium,Total 8.8 mg/dL (7.6-11.0); Carbon Dioxide 23.3 mmol/L (21.0-32.0); Chloride 98 mmol/L (98-108); Estimated Creatinine Clearance 32.91 ml/min (50-250); Glucose 218 mg/dL (70-99); Potassium 5.1 mmol/L (3.3-5.1); Pro- Brain NATRIURETIC PEPTIDE 2476 pg/mL (<=1800); Troponin T High Sensitivity 130 ng/L (<=22)
[2025-01-27 14:32] LABS: Troponin T High Sens 2 HR 126 ng/L (<=22)
--- NOTE | 2025-01-27 14:44 | ED.RN ---
Pt refusing to ambulate for this RN, stating that he has been in bed to weak to walk since . I spoke with son who confirmed that Pt has been very weak since .
--- NOTE | 2025-01-27 15:06 | ECHOLC_ITS ---
Reason For Study Reason For Study: Elevated Troponins Procedure This was a limited 2D transthoracic echocardiogram. Contrast injection was performed. Exam performed portable in patient room. Left Ventricle Normal LV size. The left ventricular ejection fraction is 25 %. There is severe global hypokinesis of the left ventricle. Right Ventricle Normal size and thickness. Normal systolic function. Atria Normal left atrium. Normal right atrium. Mitral Valve Normal mitral valve. Tricuspid Valve Normal tricuspid valve. Aortic Valve The aortic valve is not well visualized. Pulmonic Valve The pulmonic valve is not well visualized. Great Vessels Normal aortic root. Inferior vena cava collapse with respiration. Pericardium/Pleural No pericardial effusion. Medication Diluted definity 1ml given slow IV push to enhance endocardial definition. MMode/2D Measurements & Calculations LVIDd: 5.3 cm IVSd: 1.1 cm LVIDs: 4.6 cm LVPWd: 1.3 cm LVAd ap4: 32.7 cm2 FS: 13.4 % LVLd ap4: 8.6 cm EDV(MOD-sp4): 106.0 ml EDV(sp4-el): 105.1 ml LVAs ap4: 27.4 cm2 LVLs ap4: 8.4 cm ESV(MOD-sp4): 76.5 ml ESV(sp4-el): 75.7 ml EF(MOD-sp4): 27.8 % EF(sp4-el): 27.9 % LVAd ap2: 30.5 cm2 SV(MOD-sp4): 29.5 ml SV(MOD-sp2): 33.6 ml LVLd ap2: 7.7 cm SI(MOD-sp4): 13.8 ml/m2 SI(MOD-sp2): 15.7 ml/m2 EDV(MOD-sp2): 101.2 ml EDV(sp2-el): 102.2 ml LVAs ap2: 25.4 cm2 LVLs ap2: 8.1 cm ESV(MOD-sp2): 67.7 ml ESV(sp2-el): 68.0 ml EF(MOD-sp2): 33.2 % SV(sp4-el): 29.4 ml Doppler Measurements & Calculations Ao V2 max: 188.3 cm/sec LV V1 max: 87.7 cm/sec Ao max P.5 mmHg LV V1 max P.1 mmHg Ao V2 mean: 144.3 cm/sec LV V1 mean P.9 mmHg Ao mean P.1 mmHg LV V1 mean: 65.7 cm/sec Ao V2 VTI: 33.7 cm LV V1 VTI: 15.6 cm AV (velocity ratio): 0.46 ECHO/Echo Limited w/Contrast Interpretation Summary The left ventricular ejection fraction is 25 %. Normal LV size. There is severe global hypokinesis of the left ventricle. Contrast injection was performed. Compared to previous study, the left ventricu lar systolic function is the same.. Ordering Physician: Marco Cruz Referring Physician: Donna Will Performed By: Kathi Mcgarry RDCS, RVT
--- NOTE | 2025-01-27 15:07 | HP.PCM.HOS_ITS ---
[facility] - General General Date of Service: 01/27/25 Chief Complaint: weakness. HPI Narrative SAL ALONZO, is a 74 M who presents with weakness. Has a history of heart failure and was just recently discharged on 12 January with a MRSA pneumonia after an 18-day stay in the hospital. Patient actually was doing pretty well and was discharged home. But since being at home. Since this past , patient has progressively gotten weaker to the point where he cannot adequately care for himself which led him going back into the hospital. He denies any fever or chills, no sore throat or rhinitis, no shortness of breath, no chest pain no abdominal pain no nausea or vomiting. Denies any lower extremity edema. He had a chest CT today that showed bronchiectasis with some mild scarring but no focal infiltrates. He had elevated troponins of 130 that trended down to 126. His BNP was elevated 2476, however that is an improvement from 07 January was 6130. But given his weakness and other medical derangements, the hospital service was contacted for admission. [ ] [facility] Medical History Chronic kidney disease, stage 3b Diabetes mellitus type 2, insulin dependent Renal insufficiency Type 2 SC (myocardial infarction) MRSA (methicillin resistant staph aureus) culture positive Ischemic cardiomyopathy COVID-19 Lethargic COPD with acute exacerbation Elevated troponin I level LUIS (acute kidney injury) Hypoxemia Chronic kidney disease (CKD), stage III (moderate) Acute hypoxic on chronic hypercapnic respiratory failure FTT (failure to thrive) in adult Former smoker On home oxygen therapy Bleeding tendency Ulcer High cholesterol History of stress test HTN (hypertension) Tobacco abuse History of pulmonary embolus (PE) (04/30/21) Essential hypertension Type 2 diabetes mellitus DVT (deep venous thrombosis) (05/01/21) Rhinovirus Acute respiratory failure with hypoxia Physical debility COVID-19 in immunocompromised patient Nicotine dependence, cigarettes, uncomplicated Diabetes Arthritis Cancer COPD (chronic obstructive pulmonary disease) History of basal cell carcinoma Atherosclerosis of coronary artery of [place] heart without angina pectoris Pneumonia Non-Hodgkin lymphoma History of pilonidal cyst Allergic rhinitis 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 complications Gastritis Colon polyp Obesity Asthma Chronic bronchitis Positive colorectal cancer screening using Cologuard test RA (rheumatoid arthritis) Home Medications ?Medication ?Instructions ?Recorded ?Last Taken ?Type finasteride 5 mg tablet 5 mg PO DAILY prostate 08/1407/07/24 History tamsulosin 0.4 mg capsule 0.4 mg PO QHS prostate 08/1407/07/24 History multivitamin 1 tab PO DAILY vitamin 09/1307/07/24 History mirtazapine 15 mg tablet (Remeron) 7.5 mg (1/2 x 15 mg ) PO QHS sleep 10/29/23 07/07/24 Rx #90 tabs needle (disp) 32 gauge 32 gauge x #100 ea 11/12/23 Unk nown Rx /16 (Easy Touch Hypodermic Needle) 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 sensor (FreeStyle #1 ea 12/24/23 Unknown Rx Basilio 3 Sensor device) 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,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,cont #1 ea 12/24/23 Unknown Rx (FreeStyle Basilio 3 [place]) ferrous sulfate 325 mg (65 mg 325 mg PO QODAY Suppleme nt 04/05/24 07/07/24 History iron) tablet (FeroSul) cholecalciferol (vitamin D3) 50 50 mcg PO QDAY 5 07/07/24 History mcg (2,000 unit) capsule pantoprazole 40 mg tablet,delayed 40 mg PO DAILY 30 da ys #0 tabs 08/25/24 07/07/24 Rx release (Protonix) sennosides 8.6 mg-docusate sodium 2 tab PO BID PRN Con stipation #0 08/25/24 Unknown Rx 50 mg tablet (Stimulant Laxative tabs Plus) albuterol sulfate 90 mcg/actuation 2 puff inhalation Q 6 PRN shortness 09/24/24 Unknown History aerosol inhaler of breath or wheezing budesonide 1 mg/2 mL suspension 1 mg (2 mL) inhalation Q12H 09/24/24 Unknown Rx for nebulization wheezing/SOB #120 mL atorvastatin 40 mg tablet 40 mg PO QHS #90 tabs Unknown Rx carvedilol 6.25 mg tablet 6.25 mg PO BID BP #180 tabs 10/08/24 Unknown Rx spironolactone 25 mg tablet 25 mg PO DAILY #90 tabs Unknown Rx empagliflozin 10 mg tablet 10 mg PO DAILY #90 TABLETS 11/10/24 Unknown Rx (Jardiance) ipratropium 0.5 mg-albuterol 3 mg 3 ml inhalation Q4H PRN PRN SOB 11/26/24 Unknown Rx (2.5 mg base)/3 mL nebulization &/OR WHEEZING #270 mL soln escitalopram oxalate 10 mg tablet 10 mg PO DAILY mood 90 days #90 11/29/24 Unknown Rx tabs insulin aspart U-100 100 unit/mL See Rx Instructions s ubcut 12/23/24 Unknown Rx (3 mL) subcutaneous pen .COMPLEX High Blood Glucose #15 mL OXYGEN - Supplemental ([facility] hypoxia 12/25/24 01/27/25 H istory INFORMATIONAL USE ONLY) aspirin 81 mg tablet,delayed 81 mg PO BREAKFAST #0 tab s 01/12/25 Unknown Rx release bumetanide 0.5 mg tablet 1 mg (2 x 0.5 mg) PO QDAY #6 0 tabs 01/12/25 Unknown Rx insulin glargine-yfgn 100 unit/mL 25 unit (0.25 mL) joyce bcut BID #15 mL 01/12/25 Unknown Rx (3 mL) subcutaneous pen prednisone 20 mg tablet 40 mg (2 x 20 mg) PO BREAKFA ST #8 01/12/25 Unknown Rx tabs pen needle, diabetic 32 gauge x #100 ea 01/13/25 Unkno wn Rx Allergy/AdvReac Type Severity Reaction Status Date / Time No Known Allergies Allergy Verified 01/27/25 11:51 Family History Father Arthritis Bleeding disorder Hypertension Kidney disease Cancer Skin Anemia blood clots Emphysema lung Mother Colon cancer Cancer Lung Cancer Diabetes Brother Thyroid disorder Surgical History History of embolic filter insertion History of heart artery stent Status post cardiac surgery H/O cardiac catheterization Presence of IVC filter (04/2021) History of coronary artery stent placement (10/22/13) History of thymectomy Hx of lymph node excision History of excision of pilonidal cyst Social History household members: spouse Smoking Status: Former smoker Tobacco: How many years used: 55 second hand exposure: Yes alcohol intake: current alcohol intake frequency: holidays/special occasions only substance use type: does not use caffeine: Yes Type: coffee Number of servings: 3 what type of physical activity do you participate in: none frequency: does not exercise seatbelt use: always ROS ROS Narrative All review of systems were negative except as mentioned above in the history of present illness and the other review of systems. Vital Signs Vital Signs Vital Signs: 01/27/25 11:45 01/27/25 11:51 01/27/25 12:08 Temperature 37.4 C H 37.4 C H Temperature Source Oral Oral Pulse Rate 88 80 Respiratory Rate 16 20 H Respiratory Effort Respiratory Depth Respiratory Pattern Blood Pressure 107/69 107/69 Blood Pressure Mean 81 81 Pulse Ox 92 96 Oxygen Delivery Method Nasal Cannula Nasal Cannula Nasal Cannula Oxygen Flow Rate (L/min) 3 2 4 01/27/25 12:19 01/27/25 12:51 01/27/25 13:00 Temperature 37.1 C 37.1 C Temperature Source Oral Oral Pulse Rate 83 83 Respiratory Rate 19 H 19 H Respiratory Effort Normal Non-Labored Respiratory Depth Normal Respiratory Pattern Normal Blood Pressure 103/61 103/61 Blood Pressure Mean 75 75 Pulse Ox 97 97 Oxygen Delivery Method Nasal Cannula Nasal Cannula Oxygen Flow Rate (L/min) 4 4 01/27/25 14:00 01/27/25 14:41 01/27/25 15:00 Temperature 37.1 C 37.1 C 36.8 C Temperature Source Oral Oral Pulse Rate 81 81 79 Respiratory Rate 20 H 20 H 19 H Respiratory Effort Respiratory Depth Respiratory Pattern Blood Pressure 109/69 109/69 102/57 L Blood Pressure Mean 82 82 72 Pulse Ox 97 97 97 Oxygen Delivery Method Nasal Cannula Nasal Cannula Oxygen Flow Rate (L/min) 4 4 Weight Weight: 93.9 kg Body Mass Index (BMI) 28.8 Physical Exam Const Constitutional Narrative: Patient awake alert in bed. Follows commands appropriately. Cooperative and appropriately interactive. On oxygen but in no respiratory distress. No conversational dyspnea. HEENT normocephalic and head/scalp atraumatic Resp Resp Narrative: Coarse breath sounds bilaterally. Cardio regular rate, regular rhythm, S1 normal heart sound and S2 normal heart sound GI normal to inspection, nondistended, normoactive bowel sounds, soft to palpation, non-tender, non-distended and hepatosplenomegaly Extremity normal to inspection, full ROM and no clubbing, cyanosis or edema Extremity Narrative: Wrinkling of the skin bilaterally. Neuro moves all extremities and no focal motor deficits Sensorium / Orientation: awake Psych affect normal Results Lab / Micro Data Attestation: I reviewed the patient's lab results. 01/27/25 12:05 01/27/25 12:05 Labs: Laboratory Results - last 24 hr 01/27/25 12:05: WBC 13.5 H, RBC 2.93 L, Hgb 9.2 L, Hct 28.9 L, MCV 98.6 H, MCH 31.4, MCHC 31.8 L, RDW Std Deviation 64.0 H, RDW Coeff of Rafael 18.1 H, Plt Count 130 L, MPV 11.3, Immature Gran % (Auto) 0.700, Neut % (Auto) 74.3 H, Lymph % (Auto) 12.9 L, [place] % (Auto) 9.9, Eos % (Auto) 1.9, Baso % (Auto) 0.3, Absolute Neuts (auto) 10.1 H, Absolute Lymphs (auto) 1.74, Nucleated RBC % 0.1, Sodium 138, Potassium 5.1, Chloride 98, Carbon Dioxide 23.3, Anion Gap 16 H, BUN 58 H, Creatinine 2.27 H, Estim Creat Clear Calc 32.91 L, Est GFR (MDRD) Non-Af 29 L, B UN/Creatinine Ratio 25.7 H, Glucose 218 H, Lactic Acid 1.5, Calcium 8.8, T roponin T High Sens 130 H* D, NT pro BNP II 2476 H 01/27/25 13:54: Troponin T Hi Sens 2 Hr 126 H* Micro: Microbiology 01/27/25 12:14 Mucosa - Nose SARS-CoV-2, Influenza & RSV (PCR) - Final EKG Initial EKG: Attestation: I personally reviewed and interpreted this EKG as follows: Prior EKG tracings: available for review EKG Rhythm Intrepretation: Sinus Rhythm (With inferior Q waves. Unchanged from December 25, 2024.) Imaging Radiology Impression Chest CT 01/27/25 12:07 IMPRESSION: Coronary artery calcification (CAC) is is present Bronchiectasis at both bases with mild scarring. No focal infiltrate is seen. Reading Location: [facility]-1 Assessment & Plan Assessment/Plan (1) LUIS (acute kidney injury): PLAN: On CKD 3B I suspect due to overdiuresis. Patient does take Bumex as well as spironolactone. Patient's weight is down roughly 8 kg since the and he clinically looks dry. Will hold off on the Bumex as well as spironolactone and give him a liter of IV fluids. (2) Debility: PLAN: Patient did well during last admission. It was initially felt that he may need to go to a retirement facility but did have improved strength while he is here. Progress may be attributable to the dehydration and weight loss. Will give him some IV fluids and also have therapy evaluate him. (3) Elevated troponin I level: PLAN: EKG is unchanged. I think this is skewed given his chronic kidney disease. He is not having any active chest pain so do not feel that anticoagulation is warranted. Will check an echocardiogram if there is showing new abnormalities then may proceed with either a cardiology consult or stress test. PLAN: Plan Chronic medical conditions: * CAD: s/p LAD, RCA (2001) and L circumflex (2013), chronic HFrEF, chronic atrial fibrillation: Most recent echocardiogram 08/23/2024 with EF 25 to 30%, severe LV systolic dysfunction, no significant change from previous echocardiogram 05/2024 with EF at that time 25%Continue Coreg, statin therapy. It seems patient is not on baby aspirin probably due to GI bleed. Baby aspirin started as patient is high risk for cardiac complications including SC and stroke. Patient not on MEDHAT or ARB. 12/26: Bumex 0.5 mg oral changed to IV and Jardiance resumed. * Chronic macrocytic anemia/Fe deficiency anemia complicated by history of significant recurrent GI bleeds w/ AVMs: Admission hemoglobin 9.2, MCV 97.6, baseline hemoglobin 8-10, stable, continue to trend. Continue PPI iron supplementation. Monitor CBC following Hematology, most recent visit noted 12/06/24. * Hx VTE, DVT and BL PE: Most recent event 07/2021 BL PE, prior DVT, history of significant GI bleeds status post IVC filter placement. * Diabetes mellitus type II: Continue glargine, prandial insulin as well as sliding scale insulin. * Hypertension: Continue home Coreg, Spironolactone, Lasix with hold parameters as needed given low-normal BP in the ED, PRN hydralazine. * Hyperlipidemia: Continue home statin therapy. * History of non-Hodgkin's lymphoma: Considered in remission, s/p ABVD and radiation 2010, encourage continued outpatient follow-up with oncology as previously arranged or needed. * Anxiety and depression: We will continue patient home escitalopram and mirtazapine regimen. * BPH with obstructive pathology: We will continue patient home finasteride and Flomax regimen. * GERD with history of significant recurrent GI bleeds with AVMs: Will continue patient on PPI, DVT prophylaxis: Heparin cautiously. Charges/Coding Visit Charges Inpatient E&M: 31886 Init Hosp L3
--- NOTE | 2025-01-27 15:14 | CASEMGMT ---
Social Work Patients last face to face assessment was completed less than 30 days ago. Patient verified that all information remains accurate. Patient did start HH services from [facility] for SN, PT, and OT. Patient also states that he is currently using 4 L of oxygen at home. Reyna Cruz, FORGING DIE SINKER, [employer]EST SCI[employer]IST
[2025-01-27 15:19] LABS: Mucous, Urine 0 SEEN /hpf (<or=2+)
[2025-01-27 16:00] LABS: Color, Urine Yellow (Yellow); Glucose, Dipstick 1000 mg/dl (Normal); Ketone-Dipstick 15 mg/dl (Negative); Leukocyte Esterase-Dipstick 500 /ul (Negative); Nitrite-Dipstick Negative (Negative); Occult Blood-Urine 25 /ul (Negative); Protein-Dipstick 30 mg/dl (Negative); Specific Gravity, Urine 1.020 (1.002-1.030); Urine Bilirubin Dipstick Negative (Negative)
[2025-01-27 17:17] LABS: Troponin T High Sens 4 HR 107 ng/L (<=22)
[2025-01-27 17:37] LABS: Yeast-Urine 2+ /hpf (None Seen)
[2025-01-27 17:39] LABS: Squamous Epithelial Cells - UA 0-5 SEEN /hpf (0-5)
[2025-01-27 17:40] LABS: Red Blood Cells-Urine 0-5 SEEN /hpf (0-5)
[2025-01-27] MEDS: 0.9% Normal Saline (1000mL) 1,000 ML 125 ML IV (19:03)
[2025-01-27] MEDS: Cholecalciferol (VIT D3) 25 MCG TABLET (1,000 UNITS) 50 MCG PO (19:03)
[2025-01-27] MEDS: Heparin Injection (Vial) 5,000 UNIT/ML VIAL 5000 UNIT SC (23:42)
[2025-01-27] MEDS: Insulin Glargine-YFGN 100 UNIT/ML Pen 25 UNIT SC (23:42)
[2025-01-28] VITALS (7 sets, daily range): BP systolic 85–134; BP diastolic 58–116; PULSE 85–123; RESP 18–20; TEMP 36.4–36.9; O2SAT 96–100
[2025-01-28 05:47] LABS: Hematocrit 25.5 % (40-54); Hemoglobin 8.1 g/dL (13.0-16.5); Immature Granulocytes Count 0.050 X10^3/uL (0.0-0.0); Mean Corp Hgb Conc 31.8 g/dL (32-36); Mean Corpuscular Volume 98.5 fL (80-94); Mean Platelet Vol. 11.4 fl (6.2-12.0); NRBC Flagged by Analyzer 0 % (0-5); POSITIVE DIFFERENTIAL YES; Platelet Count 125 K/mm3 (150-450); RBC Distribution Width CV 17.6 % (11.6-14.6); RBC Distribution Width SD 62.6 fl (35.1-43.9); Red Blood Count 2.59 M/mm3 (4.6-6.2); White Blood Count 5.7 K/mm3 (4.4-11.0)
[2025-01-28] MEDS: Heparin Injection (Vial) 5,000 UNIT/ML VIAL 5000 UNIT SC ×3 (05:51→22:16)
[2025-01-28 06:37] LABS: Anion Gap 13 (5-15); BUN 59 mg/dL (4-19); BUN/Creat Ratio 31.5 RATIO (10-20); Calcium,Total 8.0 mg/dL (7.6-11.0); Carbon Dioxide 22.0 mmol/L (21.0-32.0); Chloride 102 mmol/L (98-108); Estimated Creatinine Clearance 36.55 ml/min (50-250); Glucose 392 mg/dL (70-99); Potassium 4.7 mmol/L (3.3-5.1)
[2025-01-28] MEDS: Albuterol 2.5 MG/3 ML VIAL.NEB. INHALATION (06:53)
[2025-01-28] MEDS: Budesonide Respules 0.5 MG/2 ML AMPUL.NEB. INHALATION ×2 (06:53→20:56)
--- NOTE | 2025-01-28 07:15 | PN.HOSP_ITS ---
Reason for Visit Chief Complaint: weakness. Subjective Subjective Patient states he is feeling pretty well. No issues since admission. He does have known chronic hypotension. We did discuss hospice as it was previously discussed with him at his last admission which was lengthy. He states that he would like to go to [facility] if that does not work out and he has not remitted he would be more amenable to that. Objective Data Objective Data Vital Signs: Vital Signs Temp Pulse Resp BP Pulse Ox O2 Del Method O2 Flow Rate 97.6 F L 85 18 93/82 H 98 Nasal Cannula 4 01/28/25 05:45 01/28/25 06:55 01/28/25 06:55 01/28/25 05:45 01/28/25 06:55 01/28/25 06:55 01/28/25 06:55 Oxygen Flow Rate (L/min) 4 Oxygen Delivery Method Nasal Cannula Weight: 89.2 kg Body Mass Index (BMI) 27.4 Intake & Output: Intake and Output for Last 24 Hours 01/26/25 01/27/25 01/28/25 23:59 23:59 23:59 Intake Total 400 / 400 1120 / 1120 Output Total 300 / 300 Balance 400 / 400 820 / 820 Lab / Micro Data 01/28/25 04:55 01/28/25 04:55 Labs: Laboratory Results - last 24 hr 01/27/25 12:05: WBC 13.5 H, RBC 2.93 L, Hgb 9.2 L, Hct 28.9 L, MCV 98.6 H, MCH 31.4, MCHC 31.8 L, RDW Std Deviation 64.0 H, RDW Coeff of Rafael 18.1 H, Plt Count 130 L, MPV 11.3, Immature Gran % (Auto) 0.700, Neut % (Auto) 74.3 H, Lymph % (Auto) 12.9 L, [place] % (Auto) 9.9, Eos % (Auto) 1.9, Baso % (Auto) 0.3, Absolute Neuts (auto) 10.1 H, Absolute Lymphs (auto) 1.74, Nucleated RBC % 0.1, Sodium 138, Potassium 5.1, Chloride 98, Carbon Dioxide 23.3, Anion Gap 16 H, BUN 58 H, Creatinine 2.27 H, Estim Creat Clear Calc 32.91 L, Est GFR (MDRD) Non-Af 29 L, B UN/Creatinine Ratio 25.7 H, Glucose 218 H, Lactic Acid 1.5, Calcium 8.8, T roponin T High Sens 130 H* D, NT pro BNP II 2476 H 01/27/25 13:54: Troponin T Hi Sens 2 Hr 126 H* 01/27/25 15:15: Urine Color Yellow, Urine Clarity Sl. Cloudy, Urine pH 5.0, Ur Specific [place] 1.020, Urine Protein 30 H, Urine Glucose (UA) 1000 H, Urine Ketones 15 H, Urine Occult Blood 25 H, Urine Nitrite Negative, Urine Bilirubin Negative, Urine Urobilinogen Normal, Ur Leukocyte Esterase 500 H, Urine RBC 0-5 SEEN, Urine WBC 25-50 SEEN, Ur Squamous Epith Cells 0-5 SEEN, Urine Bacteria 1+, Urine Mucus 0 SEEN, Urine Yeast 2+ 01/27/25 16:44: Troponin T Hi Sens 4Hr 107 H* 01/27/25 19:06: POC Glucose 298 H 01/27/25 23:39: POC Glucose 302 H 01/28/25 04:55: WBC 5.7, RBC 2.59 L, Hgb 8.1 L, Hct 25.5 L, MCV 98.5 H, MCH 31.3, MCHC 31.8 L, RDW Std Deviation 62.6 H, RDW Coeff of Rafael 17.6 H, Plt Count 125 L, MPV 11.4, Immature Gran % (Auto) 0.900, Neut % (Auto) 85.7 H, Lymph % (Auto) 10.0 L, [place] % (Auto) 3.2, Eos % (Auto) 0.0, Baso % (Auto) 0.2, Absolute Neuts (auto) 4.9, Absolute Lymphs (auto) 0.57 L, Nucleated RBC % 0, Sodium 138, Potassium 4.7, Chloride 102, Carbon Dioxide 22.0, Anion Gap 13, BUN 59 H, C reatinine 1.86 H, Estim Creat Clear Calc 36.55 L, Est GFR (MDRD) Non-Af 37 L, B UN/Creatinine Ratio 31.5 H, Glucose 392 H, Calcium 8.0 Micro: Microbiology 01/27/25 12:14 Mucosa - Nose SARS-CoV-2, Influenza & RSV (PCR) - Final Radiography Diagnostic Testing: Radiology Impression Chest CT 01/27/25 12:07 IMPRESSION: Coronary artery calcification (CAC) is is present Bronchiectasis at both bases with mild scarring. No focal infiltrate is seen. Reading [facility] Physical Exam Const alert, oriented x3, no apparent distress and well nourished Constitutional Narrative: Chronically ill appearing, older, white male, lying in bed, appears comfortable, reclined in recliner, non-toxic, appears comfortable HEENT head/scalp atraumatic and moist oral mucous membranes HEENT Narrative: Mallampati 2, no thrush Head and Scalp: normocephalic Eyes conjunctivae normal Eyes Narrative: no icterus Neck supple Neck Narrative: trachea midline Resp normal respiratory effort, no retractions and no use of accessory muscles Resp Narrative: diminished diffusely with no adventitious sounds Cardio regular rate, regular rhythm, S1 normal heart sound, S2 normal heart sound, no murmurs, no rub, no gallops and no clicks GI normal to inspection, nondistended, normoactive bowel sounds, soft to palpation and non-tender Extremity no clubbing, cyanosis or edema Extremity Narrative: pedal and radial pulses 2+ Neuro moves all extremities and no focal motor deficits Speech: speech normal Psych affect normal Psych Narrative: very pleasant Assessment & Plan Assessment/Plan (1) LUIS (acute kidney injury): (2) Debility: PLAN: Plan LUIS ond CKD stage III secondary to overdiuresis - Patient takes Bumex as well as Aldactone for his heart failure. Weight is down roughly 8 kg since the and he clinically appeared dry - Was volume resuscitated with IV fluids and clinically looks better - Patient states he feels a lot better - Will restart IV diuretics with Bumex to start and then Aldactone if he clinically is stable - Baseline serum creatinine looks to run between 1.7 and 1.9 - 2.27 on presentation but now back down to 1.86 today which seems to be at his baseline Chronic hypotension secondary to severe heart failure - Start midodrine 10 mg p.o. twice daily - Continue Coreg - Goal-directed therapy for his heart failure has been significantly impacted by his chronic hypotension Debility/weakness -patient does feel that he has the need to go to a skilled facility for some rehab - Feels that he probably should have done at his last discharge - Discussed overall CODE STATUS and hospice based on previous conversations and patient states that if he goes to [facility] and does not do well and has requirement for readmission that he would consider hospice at that time Elevated troponin - Chronic related to his CKD and heart failure - Echocardiogram performed and is stable when compared to previous with EF of 25% and severe global hypokinesis of the LV - No further workup at this time Chronic macrocytic anemia - Counts are stable - Monitor - Continue home iron supplementation Thrombocytopenia - Appears new since his last hospitalization - Stable at this time - No further workup at this time but if persistent may need outpatient follow-up with hematology Marked hyperglycemia on DM-2 - fasting blood sugar this morning at 192 - It does appear that the patient may have been on steroids discontinued on admission - Will follow over the next 24 hours to monitor trend with change in prednisone and increase dosing if need be Vitamin D deficiency - Continue home cholecalciferol Chronic HFrEF secondary to ischemic cardiomyopathy/CAD/hyperlipidemia - Echocardiogram appears stable when compared to previous with an EF of 25% - Continue goal-directed therapy as able - Patient does not want to pursue an ICD - Restart home Bumex today but continue to hold Aldactone and reintroduce slowly with close monitoring of his renal function and volume status - Continue home Jardiance BPH with obstruction - Continue medications GERD/history of upper GI bleed secondary to AVM - Continue PPI History of VTE/PE - History of GI bleed - Status post IVC placement History of non-Hodgkin's lymphoma - Currently considered in remission status post ABVD and radiation in 2010 - Continue ongoing outpatient follow-up with oncology as previously directed Anxiety/depression - Continue home escitalopram and mirtazapine DVT prophylaxis - Subcu heparin CODE STATUS - DNR CCA with no intubation Charges/Coding Visit Charges Inpatient E&M: 10583 Subs Hosp L2
[2025-01-28] MEDS: 0.9% Saline Lock 10 ML Syringe IV (10:40)
[2025-01-28] MEDS: Aspirin E.C. 81 MG Tablet PO (10:41)
[2025-01-28] MEDS: Cholecalciferol (VIT D3) 25 MCG TABLET (1,000 UNITS) 50 MCG PO (10:41)
[2025-01-28] MEDS: Insulin Glargine-YFGN 100 UNIT/ML Pen 25 UNIT SC (10:44)
--- NOTE | 2025-01-28 12:00 | CASEMGMT ---
Addendum entered by Brittani Zaman 01/28/25 16:34: TARAH DEL RIO updated that patient was accepted by [facility] for skilled LOC and precert submitted. RN QUANG update patient, patient voiced appreciation and had no further questions or concerns. TARAH DEL RIO called and updated son antonio Bell had no further questions or concenrs. Green sheet placed on chart with transport form and PASRR should precert be obtained over the weekend. Original Note: TARAH DEL RIO in to discuss discharge planning with patient, son at bedside. Patient and son state he would like to go to [facility] for additional therapy. Patient and son declined SNF list. Patient and son had no further questions or concern. TARAH DEL RIO updated DC planning feeder to send referral to [facility]. CM will continue to follow this patient and plan for a safe discharge.
--- NOTE | 2025-01-28 13:55 | CASEMGMT ---
Addendum entered by Batool Zeng 01/28/25 14:42: [facility] has accepted and will submit for precert. Batool Zeng DC Planning Asst. Original Note: Discharge Planning Referral sent via [facility] to [facility]. Batool Zeng DC Planning Ast
--- NOTE | 2025-01-28 15:13 | CASEMGMT ---
Discharge Planning [facility] asked to call unit if precert should be received. Green Sheet and transport form completed and sent to RN QUANG. Batool Zeng DC Planning Asst.
--- NOTE | 2025-01-28 16:27 | CASEMGMT ---
Social Work PASSR completed in [facility]. MARY ANN Weeks
[2025-01-29] VITALS (7 sets, daily range): BP systolic 86–103; BP diastolic 53–81; PULSE 52–121; RESP 16–18; TEMP 35.3–36.7; O2SAT 94–96
--- NOTE | 2025-01-29 03:53 | EKG12_ITS ---
Test Reason : POSS A-FIB Blood Pressure : */* mmHG Vent. Rate : 119 BPM Atrial Rate : 119 BPM P-R Int : 192 ms QRS Dur : 122 ms QT Int : 338 ms P-R-T Axes : * 50 -22 degrees QTcB Int : 475 ms Sinus tachycardia Non-specific intra-ventricular conduction delay Nonspecific T wave abnormality Abnormal ECG Confirmed by Jordan Wolf ([id number]), film and video editor AVINASH MARTINEZ ([id number]) on 02/01/2025 8:44:25 AM Referred By: Confirmed By: Jordan Wolf
[2025-01-29] MEDS: Heparin Injection (Vial) 5,000 UNIT/ML VIAL 5000 UNIT SC ×3 (04:40→21:02)
[2025-01-29 06:01] LABS: Hematocrit 25.3 % (40-54); Hemoglobin 8.3 g/dL (13.0-16.5); Mean Corp Hgb Conc 32.8 g/dL (32-36); Mean Corpuscular Volume 98.1 fL (80-94); Mean Platelet Vol. 11.2 fl (6.2-12.0); Platelet Count 128 K/mm3 (150-450); RBC Distribution Width CV 18.1 % (11.6-14.6); RBC Distribution Width SD 64.4 fl (35.1-43.9); Red Blood Count 2.58 M/mm3 (4.6-6.2); White Blood Count 10.3 K/mm3 (4.4-11.0)
[2025-01-29 06:41] LABS: AST(SGOT) 11 U/L (<=37); Alanine Aminotransfer ALT/SGPT 12 U/L (<=46); Albumin, Serum 2.9 g/dL (3.4-4.8); Alkaline Phosphatase 59 U/L (40-129); Anion Gap 8 (5-15); BUN 65 mg/dL (4-19); BUN/Creat Ratio 36.9 RATIO (10-20); Calcium,Total 8.2 mg/dL (7.6-11.0); Carbon Dioxide 24.5 mmol/L (21.0-32.0); Chloride 105 mmol/L (98-108); Estimated Creatinine Clearance 38.41 ml/min (50-250); Globulin 2.6 g/dL (2.2-4.2); Glucose 231 mg/dL (70-99); Potassium 5.1 mmol/L (3.3-5.1)
[2025-01-29] MEDS: Budesonide Respules 0.5 MG/2 ML AMPUL.NEB. INHALATION ×2 (07:30→19:05)
--- NOTE | 2025-01-29 07:57 | PCM.PN.HOSP ---
Reason for Visit Chief Complaint: weakness. Subjective Subjective No issues overnight. Patient states he did not sleep well and is tired. No other concerns. On baseline oxygen and renal function has returned to baseline. Objective Data Objective Data Vital Signs: Vital Signs Temp Pulse Resp BP Pulse Ox O2 Del Method O2 Flow Rate 95.6 F L 69 18 102/54 L 96 Nasal Cannula 3 01/29/25 03:27 01/29/25 06:15 01/29/25 03:27 01/29/25 06:15 01/29/25 03:27 01/29/25 03:27 01/29/25 03:27 Oxygen Flow Rate (L/min) 3 Oxygen Delivery Method Nasal Cannula Weight: 89.2 kg Body Mass Index (BMI) 27.4 Intake & Output: Intake and Output for Last 24 Hours 01/27/25 01/28/25 01/29/25 23:59 23:59 23:59 Intake Total 400 / 400 1770 / 2070 500 / 500 Output Total 900 / 1300 700 / 700 Balance 400 / 400 870 / 770 -200 / -200 Lab / Micro Data 01/29/25 05:45 01/29/25 05:45 Labs: Laboratory Results - last 24 hr 01/28/25 08:01: POC Glucose 436 H 01/28/25 12:44: POC Glucose 473 H* 01/28/25 13:40: POC Glucose 442 H 01/28/25 17:02: POC Glucose 236 H 01/28/25 22:07: POC Glucose 127 H 01/29/25 05:45: WBC 10.3, RBC 2.58 L, Hgb 8.3 L, Hct 25.3 L, MCV 98.1 H, MCH 32.2 H, MCHC 32.8, RDW Std Deviation 64.4 H, RDW Coeff of Rafael 18.1 H, Plt Count 128 L, MPV 11.2, Sodium 138, Potassium 5.1, Chloride 105, Carbon Dioxide 24.5, Anion Gap 8, BUN 65 H, Creatinine 1.77 H, Estim Creat Clear Calc 38.41 L, Est GFR (MDRD) Non-Af 40 L, BUN/Creatinine Ratio 36.9 H, Glucose 231 H, Calcium 8.2, Total Bilirubin 0.26, AST 11, ALT 12, Alkaline Phosphatase 59, Total Protein 5.5 L, Albumin 2.9 L, Globulin 2.6, Albumin/Globulin Ratio 1.1 Micro: Microbiology 01/27/25 15:15 Urine, Clean Catch Urine Culture - Final Serratia marcescens 01/27/25 12:14 Mucosa - Nose SARS-CoV-2, Influenza & RSV (PCR) - Final Radiography Diagnostic Testing: Radiology Impression Echocardiogram 01/27/25 15:06 Interpretation Summary The left ventricular ejection fraction is 25 %. Normal LV size. There is severe global hypokinesis of the left ventricle. Contrast injection was performed. Compared to previous study, the left ventricular systolic function is the same.. Ordering Physician: Marco Cruz Referring Physician: Donna Will Performed By: Kathi Mcgarry RDCS, RVT Physical Exam Const alert, oriented x3, no apparent distress and well nourished Constitutional Narrative: Chronically ill appearing, older, white male, lying in bed in left side-lying, nursing at bedside, appears comfortable but tired, nontoxic HEENT normocephalic, head/scalp atraumatic and moist oral mucous membranes Resp normal respiratory effort, no retractions, no use of accessory muscles and clear to auscultation bilaterally Resp Narrative: diminished diffusely with no adventitious sounds Auscultation: Negative for crackles, rhonchi or wheezes Psych Psych Narrative: very pleasant, interacts appropriately, makes good eye contact, affect is a little flat today but patient is quite fatigued due to poor sleep Assessment & Plan Assessment/Plan (1) LUIS (acute kidney injury): (2) Debility: PLAN: Plan LUIS ond CKD stage III secondary to overdiuresis - LUIS is resolved - Continue home Bumex - Restart home Aldactone but may need to decrease the dose to 12.5 from 25 depending on volume status over the next couple days - Baseline serum creatinine looks to run between 1.7 and 1.9 - 2.27 on presentation but now back down to 1.86 today which seems to be at his baseline Chronic hypotension secondary to severe heart failure - Continue midodrine 10 mg p.o. twice daily -Blood pressures are better with this - Continue Coreg - Goal-directed therapy for his heart failure has been significantly impacted by his chronic hypotension Debility/weakness - [place] healthy living at discharge -Awaiting pre-CERT - Discussed overall CODE STATUS and hospice based on previous conversations and patient states that if he goes to [facility] and does not do well and has requirement for readmission that he would consider hospice at that time Elevated troponin - Chronic related to his CKD and heart failure - Echocardiogram performed and is stable when compared to previous with EF of 25% and severe global hypokinesis of the LV - No further workup at this time Chronic macrocytic anemia - Counts are stable - Monitor - Continue home iron supplementation Thrombocytopenia - Appears new since his last hospitalization - Stable at this time - No further workup at this time but if persistent may need outpatient follow-up with hematology DM-2 with hyperglycemia -Fasting blood sugar this morning is greater than 200 - Increase basal insulin from 25 twice daily to 30 twice daily -Continue scheduled log -Continue to trend blood sugars - Accu-Cheks as ordered - SSI as ordered - continue home Jardiance--> likely on this more for heart failure than diabetes Vitamin D deficiency - Continue home cholecalciferol Chronic HFrEF secondary to ischemic cardiomyopathy/CAD/hyperlipidemia - Echocardiogram appears stable when compared to previous with an EF of 25% - Continue goal-directed therapy as able - Patient does not want to pursue an ICD -Home Bumex was restarted - Restart home Aldactone and watch volume status closely - Continue home Jardiance BPH with obstruction - Continue medications GERD/history of upper GI bleed secondary to AVM - Continue PPI History of VTE/PE - History of GI bleed - Status post IVC placement History of non-Hodgkin's lymphoma - Currently considered in remission status post ABVD and radiation in 2010 - Continue ongoing outpatient follow-up with oncology as previously directed Anxiety/depression - Continue home escitalopram and mirtazapine DVT prophylaxis - Subcu heparin CODE STATUS - DNR CCA with no intubation Charges/Coding Visit Charges Inpatient E&M: 17436 Subs Hosp L2
[2025-01-29] MEDS: Aspirin E.C. 81 MG Tablet PO (08:58)
[2025-01-29] MEDS: Insulin Glargine-YFGN 100 UNIT/ML Pen 25 UNIT SC (09:02)
[2025-01-29] MEDS: Cholecalciferol (VIT D3) 25 MCG TABLET (1,000 UNITS) 50 MCG PO (09:11)
[2025-01-30 05:12] LABS: Hematocrit 25.7 % (40-54); Hemoglobin 8.0 g/dL (13.0-16.5); Mean Corp Hgb Conc 31.1 g/dL (32-36); Mean Corpuscular Volume 100.0 fL (80-94); Mean Platelet Vol. 11.0 fl (6.2-12.0); POSITIVE MORPHOLOGY YES; Platelet Count 145 K/mm3 (150-450); RBC Distribution Width CV 17.8 % (11.6-14.6); RBC Distribution Width SD 65.3 fl (35.1-43.9); Red Blood Count 2.57 M/mm3 (4.6-6.2); White Blood Count 6.8 K/mm3 (4.4-11.0)
[2025-01-30 05:15] VITALS: BP 106/58; PULSE 64; RESP 16; TEMP 36.3; O2SAT 95
[2025-01-30] MEDS: Heparin Injection (Vial) 5,000 UNIT/ML VIAL 5000 UNIT SC ×3 (05:17→19:48)
[2025-01-30 05:30] LABS: Anion Gap 9 (5-15); BUN 67 mg/dL (4-19); BUN/Creat Ratio 38.6 RATIO (10-20); Calcium,Total 8.3 mg/dL (7.6-11.0); Carbon Dioxide 25.8 mmol/L (21.0-32.0); Chloride 106 mmol/L (98-108); Estimated Creatinine Clearance 39.29 ml/min (50-250); Glucose 141 mg/dL (70-99); Potassium 4.3 mmol/L (3.3-5.1)
[2025-01-30 06:21] LABS: Scan Indicated on CBC? Y/N YES- FLAGS NOTED
[2025-01-30 07:10] VITALS: PULSE 80; RESP 18; O2SAT 92
[2025-01-30] MEDS: Budesonide Respules 0.5 MG/2 ML AMPUL.NEB. INHALATION ×2 (07:10→20:00)
--- NOTE | 2025-01-30 07:16 | PCM.PN.HOSP ---
Reason for Visit Chief Complaint: weakness. Subjective Subjective Patient states he is feeling fine. Had a much better night of sleep. Objective Data Objective Data Vital Signs: Vital Signs Temp Pulse Resp BP Pulse Ox O2 Del Method O2 Flow Rate 97.3 F L 64 16 106/58 L 95 Nasal Cannula 3 01/30/25 05:15 01/30/25 05:15 01/30/25 05:15 01/30/25 05:15 01/30/25 05:15 01/30/25 05:15 01/30/25 05:15 Oxygen Flow Rate (L/min) 3 Oxygen Delivery Method Nasal Cannula Weight: 89.2 kg Body Mass Index (BMI) 27.4 Intake & Output: Intake and Output for Last 24 Hours 01/28/25 01/29/25 01/30/25 23:59 23:59 23:59 Intake Total 1770 / 2070 550 / 550 200 / 200 Output Total 900 / 1300 1650 / 2050 750 / 750 Balance 870 / 770 -1100 / -1500 -550 / -550 Lab / Micro Data 01/30/25 04:59 01/30/25 04:59 Labs: Laboratory Results - last 24 hr 01/29/25 08:50: POC Glucose 238 H 01/29/25 12:30: POC Glucose 208 H 01/29/25 16:53: POC Glucose 165 H 01/29/25 21:00: POC Glucose 99 01/29/25 22:04: POC Glucose 94 01/30/25 04:59: WBC 6.8, RBC 2.57 L, Hgb 8.0 L, Hct 25.7 L, MCV 100.0 H, MCH 31.1, MCHC 31.1 L D, RDW Std Deviation 65.3 H, RDW Coeff of Rafael 17.8 H, Plt Count 145 L, MPV 11.0, Sodium 140, Potassium 4.3, Chloride 106, Carbon Dioxide 25.8, Anion Gap 9, BUN 67 H, Creatinine 1.73 H, Estim Creat Clear Calc 39.29 L, Est GFR (MDRD) Non-Af 41 L, BUN/Creatinine Ratio 38.6 H, Glucose 141 H, Calcium 8.3 Micro: Microbiology 01/27/25 12:24 Blood Culture (Wb) - Left Forearm Blood Culture - Preliminary No growth in 48 hours. 01/27/25 12:05 Blood Culture (Wb) - Left Forearm Blood Culture - Preliminary No growth in 48 hours. 01/27/25 15:15 Urine, Clean Catch Urine Culture - Final Serratia marcescens 01/27/25 12:14 Mucosa - Nose SARS-CoV-2, Influenza & RSV (PCR) - Final Physical Exam Const alert, oriented x3, no apparent distress, average body habitus and well nourished; Negative for healthy appearing Constitutional Narrative: Chronically ill appearing, older, white male, lying in bed, appears much less fatigued today states he is feeling okay HEENT normocephalic, head/scalp atraumatic and moist oral mucous membranes HEENT Narrative: No thrush Resp normal respiratory effort, no retractions, no use of accessory muscles and clear to auscultation bilaterally Resp Narrative: Diminished diffusely but clear Auscultation: Negative for crackles, rhonchi or wheezes Cardio regular rate, regular rhythm, S1 normal heart sound, S2 normal heart sound, no murmurs, no rub, no gallops and no clicks GI normal to inspection, nondistended, normoactive bowel sounds, soft to palpation and non-tender Extremity Extremity Narrative: Trace bilateral lower extremity pitting edema, no cyanosis or clubbing Neuro moves all extremities and no focal motor deficits Speech: speech normal Psych affect normal Psych Narrative: very pleasant, interacts appropriately, makes good eye contact Assessment & Plan Assessment/Plan (1) LUIS (acute kidney injury): (2) Debility: PLAN: Plan CKD stage III secondary to overdiuresis - LUIS is resolved - Continue home Bumex -Continue home Aldactone -Watch volume status closely - Baseline serum creatinine looks to run between 1.7 and 1.9 -Creatinine in baseline range Chronic hypotension secondary to severe heart failure - Continue midodrine 10 mg p.o. twice daily -Blood pressures are better with this--> will need to continue at discharge - Continue Coreg - Goal-directed therapy for his heart failure has been significantly impacted by his chronic hypotension Debility/weakness - [place] healthy living at discharge -Awaiting pre-CERT - Discussed overall CODE STATUS and hospice based on previous conversations and patient states that if he goes to [facility] and does not do well and has requirement for readmission that he would consider hospice at that time Elevated troponin - Chronic related to his CKD and heart failure - Echocardiogram performed and is stable when compared to previous with EF of 25% and severe global hypokinesis of the LV - No further workup at this time Chronic macrocytic anemia - Counts are stable - Monitor - Continue home iron supplementation Thrombocytopenia - Appears new since his last hospitalization - Slowly trending up - No further workup at this time but if persistent may need outpatient follow-up with hematology - Continue to monitor DM-2 with hyperglycemia - Blood sugars are starting to drop likely related to stress response decreased - Decrease basal insulin to 20 units twice daily - Decrease scheduled log as ordered - Continue to trend blood sugars - Accu-Cheks as ordered - Hold SSI for now with changes and dropping blood sugars - continue home Jardiance--> likely on this more for heart failure than diabetes Vitamin D deficiency - Continue home cholecalciferol Chronic HFrEF secondary to ischemic cardiomyopathy/CAD/hyperlipidemia - Echocardiogram appears stable when compared to previous with an EF of 25% - Continue goal-directed therapy as able - Patient does not want to pursue an ICD - Home Bumex was restarted - Restart home Aldactone and watch volume status closely - Continue home Jardiance BPH with obstruction - Continue medications GERD/history of upper GI bleed secondary to AVM - Continue PPI History of VTE/PE - History of GI bleed - Status post IVC placement History of non-Hodgkin's lymphoma - Currently considered in remission status post ABVD and radiation in 2010 - Continue ongoing outpatient follow-up with oncology as previously directed Anxiety/depression - Continue home escitalopram and mirtazapine DVT prophylaxis - Subcu heparin CODE STATUS - DNR CCA with no intubation Charges/Coding Visit Charges Inpatient E&M: 28737 Subs Hosp L2
[2025-01-30] MEDS: Cholecalciferol (VIT D3) 25 MCG TABLET (1,000 UNITS) 50 MCG PO (08:52)
[2025-01-30] MEDS: Aspirin E.C. 81 MG Tablet PO (08:53)
[2025-01-30 08:55] VITALS: BP 112/57; PULSE 52; RESP 16; TEMP 36.6; O2SAT 93
[2025-01-30] MEDS: Insulin Glargine-YFGN 100 UNIT/ML Pen 30 UNIT SC (08:59)
[2025-01-30 14:55] VITALS: BP 111/56; PULSE 75; RESP 18; TEMP 36.6; O2SAT 94
[2025-01-30 20:00] VITALS: PULSE 79; RESP 22; O2SAT 91
[2025-01-30 20:45] VITALS: BP 99/48; PULSE 71; RESP 18; TEMP 36.2; O2SAT 92
[2025-01-30] MEDS: Insulin Glargine-YFGN 100 UNIT/ML Pen 20 UNIT SC (20:49)
[2025-01-31] VITALS (8 sets, daily range): BP systolic 95–112; BP diastolic 46–57; PULSE 75–84; RESP 16–18; TEMP 36.1–36.9; O2SAT 92–99
[2025-01-31] MEDS: Heparin Injection (Vial) 5,000 UNIT/ML VIAL 5000 UNIT SC ×3 (05:57→22:39)
[2025-01-31 06:25] LABS: Hematocrit 28.4 % (40-54); Hemoglobin 8.8 g/dL (13.0-16.5); Mean Corp Hgb Conc 31.0 g/dL (32-36); Mean Corpuscular Volume 99.6 fL (80-94); Mean Platelet Vol. 11.0 fl (6.2-12.0); POSITIVE MORPHOLOGY YES; Platelet Count 155 K/mm3 (150-450); RBC Distribution Width CV 18.0 % (11.6-14.6); RBC Distribution Width SD 65.1 fl (35.1-43.9); Red Blood Count 2.85 M/mm3 (4.6-6.2); White Blood Count 6.3 K/mm3 (4.4-11.0)
[2025-01-31] MEDS: Budesonide Respules 0.5 MG/2 ML AMPUL.NEB. INHALATION ×2 (06:46→19:13)
[2025-01-31] MEDS: Albuterol 2.5 MG/3 ML VIAL.NEB. INHALATION ×2 (06:46→19:13)
[2025-01-31 06:47] LABS: Anion Gap 9 (5-15); BUN 56 mg/dL (4-19); BUN/Creat Ratio 35.7 RATIO (10-20); Calcium,Total 8.5 mg/dL (7.6-11.0); Carbon Dioxide 26.4 mmol/L (21.0-32.0); Chloride 105 mmol/L (98-108); Estimated Creatinine Clearance 43.30 ml/min (50-250); Glucose 168 mg/dL (70-99); Potassium 4.4 mmol/L (3.3-5.1)
[2025-01-31 06:53] LABS: Scan Indicated on CBC? Y/N YES- FLAGS NOTED
[2025-01-31] MEDS: Insulin Glargine-YFGN 100 UNIT/ML Pen 20 UNIT SC ×2 (09:12→22:39)
[2025-01-31] MEDS: Cholecalciferol (VIT D3) 25 MCG TABLET (1,000 UNITS) 50 MCG PO (09:13)
[2025-01-31] MEDS: Aspirin E.C. 81 MG Tablet PO (09:15)
--- NOTE | 2025-01-31 09:15 | CASEMGMT ---
Discharge Planning Updates sent via [facility] to [facility]. Batool Zeng DC Planning Asst.
[2025-01-31] MEDS: Senna/Docusate Sodium 1 Tablet 2 TABLET PO (09:16)
--- NOTE | 2025-01-31 11:32 | CASEMGMT ---
Discharge Planning [facility] has denied skilled stay. P2P is being offered although [facility] states that it will not change outcome. RN CM updated. Batool Zeng DC Planning Asst.
--- NOTE | 2025-01-31 12:46 | PCM.PN.HOSP ---
Subjective Subjective Doing well, no issues overnight Objective Data Objective Data Vital Signs: Vital Signs Temp Pulse Resp BP Pulse Ox O2 Del Method O2 Flow Rate 98.4 F 80 16 107/55 L 92 Nasal Cannula 4 01/31/25 09:00 01/31/25 09:00 01/31/25 09:00 01/31/25 09:00 01/31/25 09:00 01/31/25 09:00 01/31/25 11:36 Oxygen Flow Rate (L/min) 4 Oxygen Delivery Method Nasal Cannula Weight: 196 lb 10.437 oz Body Mass Index (BMI) 27.4 Intake & Output: Intake and Output for Last 24 Hours 01/30/25 01/31/25 02/01/25 03:59 03:59 03:59 Intake Total 250 / 250 730 / 730 50 / 50 Output Total 1650 / 1650 1275 / 1275 600 / 600 Balance -1400 / -1400 -545 / -545 -550 / -550 Lab / Micro Data 01/31/25 05:50 01/31/25 05:50 Labs: Laboratory Results - last 24 hr 01/30/25 16:09: POC Glucose 170 H 01/30/25 20:48: POC Glucose 194 H 01/31/25 05:50: WBC 6.3, RBC 2.85 L, Hgb 8.8 L, Hct 28.4 L, MCV 99.6 H, MCH 30.9, MCHC 31.0 L, RDW Std Deviation 65.1 H, RDW Coeff of Rafael 18.0 H, Plt Count 155, MPV 11.0, Sodium 140, Potassium 4.4, Chloride 105, Carbon Dioxide 26.4, Anion Gap 9, BUN 56 H, Creatinine 1.57 H, Estim Creat Clear Calc 43.30 L, Est GFR (MDRD) Non-Af 46 L, BUN/Creatinine Ratio 35.7 H, Glucose 168 H, Calcium 8.5 01/31/25 08:54: POC Glucose 151 H Micro: Microbiology 01/27/25 12:24 Blood Culture (Wb) - Left Forearm Blood Culture - Preliminary No growth in 48 hours. 01/27/25 12:05 Blood Culture (Wb) - Left Forearm Blood Culture - Preliminary No growth in 48 hours. 01/27/25 15:15 Urine, Clean Catch Urine Culture - Final Serratia marcescens 01/27/25 12:14 Mucosa - Nose SARS-CoV-2, Influenza & RSV (PCR) - Final Physical Exam Narrative General: Alert, Oriented x3, Cooperative, No apparent distress HEENT: Atraumatic, PERRLA, EOMI, Normocephalic Oral: Moist Mucosa Neck: Supple, No JVD Lungs: Diminished, Normal air movement, No rhonchi, No wheeze, No rales Cardiovascular: Regular rate, Regular Rhythm, Normal S1, Normal S2, No murmurs Abdomen: Soft, Non Tender, Non-Distended, No Hepato-splenomegaly Extremities: Trace edema, Capillary Refill Less than 3 Seconds Skin: No rashes, No breakdown Musculoskeletal: No Tenderness to Palpation of Joints or Extremities Neurological: No focal neurological deficits, moves all extremities Psych/Mental Status: Normal Affect, Appropriate Assessment & Plan Assessment/Plan (1) LUIS (acute kidney injury): (2) Debility: PLAN: Plan 1. CKD 3 due to overdiuresis with chronic hypotension secondary to heart failure/debility and weakness ? It took 3 people to get him out of the bathroom today and he only managed to walk 25 feet ? PT/OT ? Will need placement ? Continue with midodrine ? Will continue with his home diuretics 2. CAD status post stent/chronic systolic CHF/essential HTN/HLD/new onset A-fib ? Stress test in the beginning of October 2023 did not show any reversible perfusion defects ? He had an echo on 01/27/2025 with an EF of 25% mildly dilated LV with severe global hypokinesis ? Continue with his home blood pressure medications ? Not a candidate for anticoagulation secondary to a history of recurrent GI bleeds as well as iron deficiency anemia ? Elevated troponin is insignificant and related to kidney disease 3. DM2 ? Will hold his oral regimen ? Continue with insulin ? Accu-Cheks ACHS ? Will monitor make adjustments as necessary ? Continue with Jardiance both for his diabetes and heart failure 4. 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 The AVMs are likely related to his rheumatoid arthritis ? Continue with PPI ? Has an IVC filter in place 5. Anxiety/depression ? Stable ? Continue with his home medications 6. BPH ? Stable ? Continue with his home medications DVT: Heparin Charges/Coding Visit Charges Inpatient E&M: 85587 Subs Hosp L2
--- NOTE | 2025-01-31 13:28 | CASEMGMT ---
Addendum entered by Brittani Zaman 01/31/25 16:27: TARAH DEL RIO updated patient regarding denial to [facility]. Patient requesting appeal. TARAH DEL RIO called [phone] and spoke to members services requesting appeal on behalf of patient, TARAH DEL RIO was transferred to [facility] at [phone]. TARAH DEL RIO was prompted to leave message. TARAH DEL RIO left message with patient's name, , member ID, request for expedited appeal for SNF placement and this TARAH DEL RIO return call back information. TARAH DEL RIO also faxed clinical information to [phone] with request for expedited appeal for SNF placement, fax confirmation received. Original Note: TARAH DEL RIO udpated by [facility] that [facility] has denied for SNF admission. TARAH DEL RIO updated hospitalist and scheduled peer to peer by call [phone], message received that peer to peer with not change outcome and that the provider can dispute by calling [phone] or faxing [phone]. TARAH DEL RIO left message requesting peer to peer be scheduled and provided patient information and hospitalist information to call for peer to peer.
[2025-01-31] MEDS: 0.9% Saline Lock 10 ML Syringe IV (16:47)
[2025-02-01] VITALS (9 sets, daily range): BP systolic 92–116; BP diastolic 55–78; PULSE 71–93; RESP 15–18; TEMP 36.4–36.9; O2SAT 93–98
[2025-02-01] MEDS: Heparin Injection (Vial) 5,000 UNIT/ML VIAL 5000 UNIT SC ×3 (05:58→21:11)
[2025-02-01 06:58] LABS: Hematocrit 31.3 % (40-54); Hemoglobin 9.7 g/dL (13.0-16.5); Mean Corp Hgb Conc 31.0 g/dL (32-36); Mean Corpuscular Volume 99.4 fL (80-94); Mean Platelet Vol. 10.9 fl (6.2-12.0); POSITIVE COUNT YES; POSITIVE MORPHOLOGY YES; Platelet Count 183 K/mm3 (150-450); RBC Distribution Width CV 18.2 % (11.6-14.6); RBC Distribution Width SD 65.6 fl (35.1-43.9); Red Blood Count 3.15 M/mm3 (4.6-6.2); White Blood Count 7.1 K/mm3 (4.4-11.0)
[2025-02-01] MEDS: Budesonide Respules 0.5 MG/2 ML AMPUL.NEB. INHALATION ×2 (07:09→19:35)
[2025-02-01 07:29] LABS: Anion Gap 11 (5-15); BUN 52 mg/dL (4-19); BUN/Creat Ratio 30.7 RATIO (10-20); Calcium,Total 8.8 mg/dL (7.6-11.0); Carbon Dioxide 26.8 mmol/L (21.0-32.0); Chloride 104 mmol/L (98-108); Estimated Creatinine Clearance 40.46 ml/min (50-250); Glucose 106 mg/dL (70-99); Potassium 4.7 mmol/L (3.3-5.1)
[2025-02-01 08:02] LABS: Neutrophil-Segmented 54 % (47-70); Nucleated Red Bld Cells,Manual 1 % (0-5); Total Cells Counted 100 (MANUAL DIFF)
[2025-02-01 08:03] LABS: Anisocytosis 1+; Polychromasia 1+
[2025-02-01 08:04] LABS: Differential Indicated MANUAL DIFF; Scan Smear per Review Criteria MANUAL DIFF
[2025-02-01] MEDS: Aspirin E.C. 81 MG Tablet PO (08:59)
[2025-02-01] MEDS: Cholecalciferol (VIT D3) 25 MCG TABLET (1,000 UNITS) 50 MCG PO (09:00)
[2025-02-01] MEDS: Insulin Glargine-YFGN 100 UNIT/ML Pen 20 UNIT SC ×2 (09:00→21:13)
[2025-02-01] MEDS: 0.9% Saline Lock 10 ML Syringe IV (09:01)
--- NOTE | 2025-02-01 10:32 | PCM.PN.HOSP ---
Subjective Subjective Doing well, no issues overnight Objective Data Objective Data Vital Signs: Vital Signs Temp Pulse Resp BP Pulse Ox O2 Del Method O2 Flow Rate 98.2 F 78 16 100/68 93 Nasal Cannula 4 02/01/25 08:55 02/01/25 08:55 02/01/25 08:55 02/01/25 08:55 02/01/25 08:55 02/01/25 08:55 02/01/25 08:55 Oxygen Flow Rate (L/min) 4 Oxygen Delivery Method Nasal Cannula Weight: 196 lb 10.437 oz Body Mass Index (BMI) 27.4 Intake & Output: Intake and Output for Last 24 Hours 01/31/25 02/01/25 02/02/25 03:59 03:59 03:59 Intake Total 730 / 730 50 / 50 50 / 50 Output Total 1275 / 1275 1350 / 1350 125 / 125 Balance -545 / -545 -1300 / -1300 -75 / -75 Lab / Micro Data 02/01/25 06:02 02/01/25 06:02 Labs: Laboratory Results - last 24 hr 01/31/25 12:36: POC Glucose 235 H 01/31/25 17:02: POC Glucose 148 H 01/31/25 22:32: POC Glucose 124 H 02/01/25 06:02: WBC 7.1, RBC 3.15 L, Hgb 9.7 L, Hct 31.3 L, MCV 99.4 H, MCH 30.8, MCHC 31.0 L, RDW Std Deviation 65.6 H, RDW Coeff of Rafael 18.2 H, Plt Count 183, MPV 10.9, Immature Gran % (Auto) Not Reportable, Neut % (Auto) Not Reportable, Lymph % (Auto) Not Reportable, [place] % (Auto) Not Reportable, Eos % (Auto) Not Reportable, Baso % (Auto) Not Reportable, Absolute Neuts (auto) 3.8, Absolute Lymphs (auto) 1.60, Total Counted 100, Neutrophils % (Manual) 54, Lymphocytes % (Manual) 23, Monocytes % (Manual) 5, Eosinophils % (Manual) 13 H, Basophils % (Manual) 1, Metamyelocytes % 4 H, Nucleated RBC % Not Reportable, Nucleated RBCs/100 WBC 1, Diff Path Review May foll, Polychromasia 1+, Anisocytosis 1+, Sodium 142, Potassium 4.7, Chloride 104, Carbon Dioxide 26.8, Anion Gap 11, BUN 52 H, Creatinine 1.68 H, Estim Creat Clear Calc 40.46 L, Est GFR (MDRD) Non-Af 42 L, BUN/Creatinine Ratio 30.7 H, Glucose 106 H, Calcium 8.8 02/01/25 08:49: POC Glucose 109 H Micro: Microbiology 01/27/25 12:24 Blood Culture (Wb) - Left Forearm Blood Culture - Preliminary No growth in 48 hours. 01/27/25 12:05 Blood Culture (Wb) - Left Forearm Blood Culture - Preliminary No growth in 48 hours. 01/27/25 15:15 Urine, Clean Catch Urine Culture - Final Serratia marcescens 01/27/25 12:14 Mucosa - Nose SARS-CoV-2, Influenza & RSV (PCR) - Final Physical Exam Narrative General: Alert, Oriented x3, Cooperative, No apparent distress HEENT: Atraumatic, PERRLA, EOMI, Normocephalic Oral: Moist Mucosa Neck: Supple, No JVD Lungs: Diminished, Normal air movement, No rhonchi, No wheeze, No rales Cardiovascular: Regular rate, Regular Rhythm, Normal S1, Normal S2, No murmurs Abdomen: Soft, Non Tender, Non-Distended, No Hepato-splenomegaly Extremities: Trace edema, Capillary Refill Less than 3 Seconds Skin: No rashes, No breakdown Musculoskeletal: No Tenderness to Palpation of Joints or Extremities Neurological: No focal neurological deficits, moves all extremities Psych/Mental Status: Normal Affect, Appropriate Assessment & Plan Assessment/Plan (1) LUIS (acute kidney injury): (2) Debility: PLAN: Plan 1. CKD 3 due to overdiuresis with chronic hypotension secondary to heart failure/debility and weakness/Serratia UTI ? It took 3 people to get him out of the bathroom today and he only managed to walk 25 feet ? PT/OT ? Will need placement ? Continue with midodrine ? Will continue with his home diuretics ?Continue with Rocephin 2. CAD status post stent/chronic systolic CHF/essential HTN/HLD/new onset A-fib ? Stress test in the beginning of October 2023 did not show any reversible perfusion defects ? He had an echo on 01/27/2025 with an EF of 25% mildly dilated LV with severe global hypokinesis ? Continue with his home blood pressure medications ? Not a candidate for anticoagulation secondary to a history of recurrent GI bleeds as well as iron deficiency anemia ? Elevated troponin is insignificant and related to kidney disease 3. DM2 ? Will hold his oral regimen ? Continue with insulin ? Accu-Cheks ACHS ? Will monitor make adjustments as necessary ? Continue with Jardiance both for his diabetes and heart failure 4. 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 The AVMs are likely related to his rheumatoid arthritis ? Continue with PPI ? Has an IVC filter in place 5. Anxiety/depression ? Stable ? Continue with his home medications 6. BPH ? Stable ? Continue with his home medications DVT: Heparin Charges/Coding Visit Charges Inpatient E&M: 07675 Subs Hosp L2
[2025-02-01] MEDS: Senna/Docusate Sodium 1 Tablet 2 TABLET PO (21:21)
--- NOTE | 2025-02-01 23:57 | NURSING ---
This RN transferred care and report given to TARAH Ken.
[2025-02-02] VITALS (7 sets, daily range): BP systolic 93–112; BP diastolic 51–63; PULSE 74–98; RESP 16–18; TEMP 36.7–37.2; O2SAT 92–98
[2025-02-02] MEDS: Heparin Injection (Vial) 5,000 UNIT/ML VIAL 5000 UNIT SC ×3 (05:10→20:53)
[2025-02-02] MEDS: Albuterol 2.5 MG/3 ML VIAL.NEB. INHALATION (07:30)
[2025-02-02] MEDS: Budesonide Respules 0.5 MG/2 ML AMPUL.NEB. INHALATION ×2 (07:31→19:30)
--- NOTE | 2025-02-02 09:30 | CASEMGMT ---
TARAH DEL RIO called [facility] to inquire about status of expedited appeal. TARAH DEL RIO was able to talk to [place] in the appeal and denial department, phone number [phone]. Per [place], the appeal was denied this morning and was sent o [place], an independent reviewer. Per [place] this review could take 3-7 business days. [place] states that referance number for the appeal is the patient's member ID. TARAH DEL RIO received fax of the appeal denial and placed in patient's chart. TARAH DEL RIO updated hospitalist of denial and will have patient work with therapy to see if patient is safe to return home with [facility]. QUANG will continue to follow this patient and plan for a safe discharge.
[2025-02-02] MEDS: 0.9% Saline Lock 10 ML Syringe IV (09:44)
[2025-02-02] MEDS: Aspirin E.C. 81 MG Tablet PO (09:44)
[2025-02-02] MEDS: Cholecalciferol (VIT D3) 25 MCG TABLET (1,000 UNITS) 50 MCG PO (09:46)
[2025-02-02] MEDS: Insulin Glargine-YFGN 100 UNIT/ML Pen 20 UNIT SC ×2 (09:47→20:54)
--- NOTE | 2025-02-02 12:08 | PCM.PN.HOSP ---
Subjective Subjective Doing well, no issues overnight Objective Data Objective Data Vital Signs: Vital Signs Temp Pulse Resp BP Pulse Ox O2 Del Method O2 Flow Rate 98.2 F 80 18 101/51 L 92 Nasal Cannula 4 02/02/25 08:00 02/02/25 08:00 02/02/25 08:00 02/02/25 08:00 02/02/25 08:00 02/02/25 08:00 02/02/25 08:00 Oxygen Flow Rate (L/min) 4 Oxygen Delivery Method Nasal Cannula Weight: 196 lb 10.437 oz Body Mass Index (BMI) 27.4 Intake & Output: Intake and Output for Last 24 Hours 02/01/25 02/02/25 02/03/25 03:59 03:59 03:59 Intake Total 50 / 50 50 / 50 50 / 50 Output Total 1350 / 1350 975 / 975 250 / 250 Balance -1300 / -1300 -925 / -925 -200 / -200 Lab / Micro Data 02/01/25 06:02 02/01/25 06:02 Labs: Laboratory Results - last 24 hr 02/01/25 06:02: Diff Path Review Reviewed 02/01/25 13:13: POC Glucose 207 H 02/01/25 17:03: POC Glucose 220 H 02/01/25 21:16: POC Glucose 182 H 02/02/25 07:54: POC Glucose 123 H Micro: Microbiology 01/27/25 12:24 Blood Culture (Wb) - Left Forearm Blood Culture - Final No growth in 5 days. 01/27/25 12:05 Blood Culture (Wb) - Left Forearm Blood Culture - Final No growth in 5 days. 01/27/25 15:15 Urine, Clean Catch Urine Culture - Final Serratia marcescens 01/27/25 12:14 Mucosa - Nose SARS-CoV-2, Influenza & RSV (PCR) - Final Physical Exam Narrative General: Alert, Oriented x3, Cooperative, No apparent distress HEENT: Atraumatic, PERRLA, EOMI, Normocephalic Oral: Moist Mucosa Neck: Supple, No JVD Lungs: Diminished, Normal air movement, No rhonchi, No wheeze, No rales Cardiovascular: Regular rate, Regular Rhythm, Normal S1, Normal S2, No murmurs Abdomen: Soft, Non Tender, Non-Distended, No Hepato-splenomegaly Extremities: Trace edema, Capillary Refill Less than 3 Seconds Skin: No rashes, No breakdown Musculoskeletal: No Tenderness to Palpation of Joints or Extremities Neurological: No focal neurological deficits, moves all extremities Psych/Mental Status: Normal Affect, Appropriate Assessment & Plan Assessment/Plan (1) LUIS (acute kidney injury): (2) Debility: PLAN: Plan 1. CKD 3 due to overdiuresis with chronic hypotension secondary to heart failure/debility and weakness/Serratia UTI ? PT/OT ? Will need placement ? Continue with midodrine ? Will continue with his home diuretics ?Continue with Rocephin 2. CAD status post stent/chronic systolic CHF/essential HTN/HLD/new onset A-fib ? Stress test in the beginning of October 2023 did not show any reversible perfusion defects ? He had an echo on 01/27/2025 with an EF of 25% mildly dilated LV with severe global hypokinesis ? Continue with his home blood pressure medications ? Not a candidate for anticoagulation secondary to a history of recurrent GI bleeds as well as iron deficiency anemia ? Elevated troponin is insignificant and related to kidney disease 3. DM2 ? Will hold his oral regimen ? Continue with insulin ? Accu-Cheks ACHS ? Will monitor make adjustments as necessary ? Continue with Jardiance both for his diabetes and heart failure 4. 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 The AVMs are likely related to his rheumatoid arthritis ? Continue with PPI ? Has an IVC filter in place 5. Anxiety/depression ? Stable ? Continue with his home medications 6. BPH ? Stable ? Continue with his home medications DVT: Heparin Charges/Coding Visit Charges Inpatient E&M: 97536 Subs Hosp L2
--- NOTE | 2025-02-02 14:25 | CASEMGMT ---
TARAH DEL RIO updated by therapy that patient was able to transfer and ambulate [facility] and feel patient is safe to discharge home with help. TARAH DEL RIO updated hospitalist that insurance has also denied the appeal for SNF at discharge. TARAH DEL RIO updated hospitalist that did better with therapy and recommending home with help. Hospitalist feels patient is safe to discharge home with help. TARAH DEL RIO received call from daughter in [place] regarding update with referral to [facility]. TARAH DEL RIO updated [place] that insurance has denied patient go to [facility] for daily skilled therapy. TARAH DEL RIO updated [place] that an appeal was submitted Friday and that the appeal was denied today. TARAH DEL RIO updated [place] that patient worked with therapy today and he is transferring and ambulating with [facility] and that the hospitalist feels that the patient is safe to return home with help. TARAH DEL RIO to request resumption of [facility] and will add SW to services. [place] is agreeable to plan but states no one will be at home this evening and is requesting discharge tomorrow if patient is ready. [place] had no further questions or concerns. TARAH DEL RIO updated hospitalist and is agreeable for safe discharge tomorrow. TARAH DEL RIO called and updated [place] of planned discharge tomorrow to home with resumption of [facility]. [place] states he will update Ray, patient's son. TARAH DEL RIO in to patient's room to updated regarding appeal denial, progress with therapy and recommendation for him to safely discharge home with help. Patient agreeable to discharge home with resumption of [facility]. TARAH DEL RIO updated patient that RN QUANG updated his DIL and that discharge is planned for tomorrow, patient voiced appreciation and had no further questions. TARAH DEL RIO updated [facility] of planned discharge tomorrow with resumption of services, awaiting start of care date.
[2025-02-03] VITALS (7 sets, daily range): BP systolic 89–123; BP diastolic 53–62; PULSE 78–97; RESP 16–18; TEMP 36.3–36.7; O2SAT 92–95
[2025-02-03] MEDS: Heparin Injection (Vial) 5,000 UNIT/ML VIAL 5000 UNIT SC ×2 (05:40→13:19)
[2025-02-03 06:19] LABS: Hematocrit 29.1 % (40-54); Hemoglobin 9.3 g/dL (13.0-16.5); Mean Corp Hgb Conc 32.0 g/dL (32-36); Mean Corpuscular Volume 97.0 fL (80-94); Mean Platelet Vol. 10.5 fl (6.2-12.0); POSITIVE COUNT YES; POSITIVE MORPHOLOGY YES; Platelet Count 239 K/mm3 (150-450); RBC Distribution Width CV 18.6 % (11.6-14.6); RBC Distribution Width SD 66.3 fl (35.1-43.9); Red Blood Count 3.00 M/mm3 (4.6-6.2); White Blood Count 7.4 K/mm3 (4.4-11.0)
[2025-02-03 06:22] LABS: Differential Indicated MANUAL DIFF
[2025-02-03 07:00] LABS: Anion Gap 12 (5-15); BUN 46 mg/dL (4-19); BUN/Creat Ratio 25.8 RATIO (10-20); Calcium,Total 9.0 mg/dL (7.6-11.0); Carbon Dioxide 26.9 mmol/L (21.0-32.0); Chloride 102 mmol/L (98-108); Estimated Creatinine Clearance 38.41 ml/min (50-250); Glucose 67 mg/dL (70-99); Potassium 4.6 mmol/L (3.3-5.1)
[2025-02-03 07:01] LABS: Neutrophil-Band 2 % (0-5); Neutrophil-Segmented 27 % (47-70); Total Cells Counted 100 (MANUAL DIFF)
[2025-02-03 07:03] LABS: Anisocytosis RARE; Red Cell Morphology NORM C+C NORMAL (NORM C&C)
[2025-02-03] MEDS: Albuterol 2.5 MG/3 ML VIAL.NEB. INHALATION (07:16)
[2025-02-03] MEDS: Budesonide Respules 0.5 MG/2 ML AMPUL.NEB. INHALATION (07:16)
[2025-02-03] MEDS: 0.9% Saline Lock 10 ML Syringe IV (09:39)
[2025-02-03] MEDS: Aspirin E.C. 81 MG Tablet PO (09:39)
[2025-02-03] MEDS: Cholecalciferol (VIT D3) 25 MCG TABLET (1,000 UNITS) 50 MCG PO (09:40)
--- NOTE | 2025-02-03 11:30 | DCINST_ITS ---
Discharge Instructions DC O2, CPAP, BIPAP needs Home O2 Discharge instructions: No Dressing / Incision Discharge Activity: Return to Normal Activity Dressing / Incision Call your doctor if you observe: Fever of 101 or Higher, Shortness of breath, Dizziness, Fainting spells, Swelling in the ankles, Chest pain and Increased palpitations (irregular heartbeat) Follow Up Care Test Results: Test results from this visit will be discussed in further detail at your follow- up appointment, if applicable. Discharge Plan Admission Admit Date/Time: 01/27/25 14:54 Attending Provider: Huang Lazcano Primary Care Provider: Donna Will Consulting Providers: Marco Cruz; Nadira Ricks Discharge Orders/Prescriptions Prescriptions: Continued multivitamin Tablet 1 tab PO DAILY tamsulosin 0.4 mg capsule 0.4 mg PO QHS finasteride 5 mg tablet 5 mg PO DAILY albuterol sulfate 90 mcg/actuation HFA aerosol inhaler 2 puff inhalation Q6 PRN (Reason: shortness of breath or wheezing) budesonide 1 mg/2 mL suspension for nebulization 1 mg inhalation Q12H Qty: 120 11RF atorvastatin 40 mg tablet 40 mg PO QHS Qty: 90 3RF carvedilol 6.25 mg tablet 6.25 mg PO BID Qty: 180 3RF Rx Instructions: must administer with a meal/food spironolactone 25 mg tablet 25 mg PO DAILY Qty: 90 3RF Rx Instructions: Hold for serum potassium more than 5.0 ferrous sulfate [FeroSul] 325 mg (65 mg iron) Tablet 325 mg PO QODAY sennosides-docusate sodium [Stimulant Laxative Plus] 8.6-50 mg Tablet 2 tab PO BID PRN (Reason: Constipation) Qty: 0 0RF pantoprazole [Protonix] 40 mg tablet,delayed release (DR/EC) 40 mg PO DAILY 30 Days Qty: 0 0RF (DME) Easy Touch Hypodermic Needle 32 gauge x 5/16 needle See Rx Instructions .Route Qty: 100 0RF Rx Instructions: As directed OXYGEN - Supplemental ([facility] [place] INFORMATIONAL USE ONLY) Patient Comments: per CM note pt wears 4 lpm NC at rest and 6lpm w/exertion. DME: Dasco aspirin 81 mg Tablet,Delayed Release (Dr/Ec) 81 mg PO BREAKFAST Qty: 0 0RF insulin glargine-yfgn 100 unit/mL (3 mL) Insulin Pen 25 unit subcut BID Qty: 15 0RF bumetanide 0.5 mg tablet 1 mg PO QDAY Qty: 60 1RF mirtazapine [Remeron] 15 mg tablet 7.5 mg PO QHS Qty: 90 3RF (DME) FreeStyle Basilio 3 Sensor Device See Rx Instructions .Route Qty: 1 5RF Rx Instructions: As directed (DME) FreeStyle Basilio 3 [place] Misc See Rx Instructions .Route Qty: 1 0RF Rx Instructions: As directed cholecalciferol (vitamin D3) 50 mcg (2,000 unit) capsule 50 mcg PO QDAY Jardiance 10 mg tablet 10 mg PO DAILY Qty: 90 0RF ipratropium-albuterol 0.5 mg-3 mg(2.5 mg base)/3 mL solution for nebulization 3 ml inhalation Q4H PRN PRN (Reason: SOB &/OR WHEEZING) Qty: 270 11RF escitalopram oxalate 10 mg tablet 10 mg PO DAILY 90 Days Qty: 90 3RF insulin aspart U-100 100 unit/mL (3 mL) insulin pen See Rx Instructions subcut .COMPLEX MDD 26 Qty: 15 2RF Protocol: 3. Sliding Scale Insulin Med Dosing Condition: 150-189 mg/dl = 1 unit Condition: 190-229 mg/dl = 2 units Condition: 230-269 mg/dl = 3 units Condition: 270-309 mg/dl = 4 units Condition: 310-349 mg/dl = 5 units Condition: 350-399 mg/dl = 6 units Condition: 400-449 mg/dl = 7 units Condition: Greater than 449 call physician Protocol Text: Suggested for: - Patients on Total Daily Insulin Dose of 37-55 units - Obese, infected, or steroid patients MEDIUM DOSING ALGORITHIM Rx Instructions: Take 14 units with breakfast, 16 units with lunch, 16 units with supper plus additional sliding Scale: For blood sugar of 190-229 add 2 units, 230-269 add 3 units, 270 or above add 4 units. (DME) pen needle, diabetic 32 gauge x 5/32 needle See Rx Instructions .ROUTE .MEDSUPPLY Qty: 100 5RF Rx Instructions: As directed Discontinued prednisone 20 mg Tablet 40 mg PO BREAKFAST Qty: 8 0RF Referrals / Follow Up: Donna Will MD [Primary Care Provider, Internal Medicine - [facility]] - Within 1 Week Disposition Disposition (needs filled in before D/C Order can be placed): Home Health Service
--- NOTE | 2025-02-03 11:42 | PHA.DC.MR.R ---
Pharmacy [facility] Reconciliation Pharmacy Service has performed discharge medication reconciliation for this patient. The patient's discharge medication list was reviewed for discrepancies and discrepancies were resolved. Medications at Discharge Home Medications finasteride 5 mg tablet 5 mg PO DAILY prostate 08/14/22 tamsulosin 0.4 mg capsule 0.4 mg PO QHS prostate 08/14/22 multivitamin 1 tab PO DAILY vitamin 09/13/22 mirtazapine 15 mg tablet (Remeron) 7.5 mg (1/2 x 15 mg) PO QHS sleep #90 tabs 10/29/23 needle (disp) 32 gauge 32 gauge x 5/16 (Easy Touch Hypodermic Needle) #100 ea 11/12/23 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 sensor (FreeStyle Basilio 3 Sensor device) #1 ea 12/24/23 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,industrial relations counselor,cont (FreeStyle Basilio 3 [place]) #1 ea 12/24/23 ferrous sulfate 325 mg (65 mg iron) tablet (FeroSul) 325 mg PO QODAY Supplement 04/05/24 cholecalciferol (vitamin D3) 50 mcg (2,000 unit) capsule 50 mcg PO QDAY health maintenance 06/28/24 pantoprazole 40 mg tablet,delayed release (Protonix) 40 mg PO DAILY 30 days #0 tabs 08/25/24 sennosides 8.6 mg-docusate sodium 50 mg tablet (Stimulant Laxative Plus) 2 tab PO BID PRN Constipation #0 tabs 08/25/24 albuterol sulfate 90 mcg/actuation aerosol inhaler 2 puff inhalation Q6 PRN shortness of breath or wheezing 09/24/24 budesonide 1 mg/2 mL suspension for nebulization 1 mg (2 mL) inhalation Q12H wheezing/SOB #120 mL 09/24/24 atorvastatin 40 mg tablet 40 mg PO QHS #90 tabs 10/08/24 carvedilol 6.25 mg tablet 6.25 mg PO BID BP #180 tabs 10/08/24 spironolactone 25 mg tablet 25 mg PO DAILY #90 tabs 10/08/24 empagliflozin 10 mg tablet (Jardiance) 10 mg PO DAILY #90 TABLETS 11/10/24 ipratropium 0.5 mg-albuterol 3 mg (2.5 mg base)/3 mL nebulization soln 3 ml inhalation Q4H PRN PRN SOB &/OR WHEEZING #270 mL 11/26/24 escitalopram oxalate 10 mg tablet 10 mg PO DAILY mood 90 days #90 tabs 11/29/24 insulin aspart U-100 100 unit/mL (3 mL) subcutaneous pen See Rx Instructions subcut .COMPLEX High Blood Glucose #15 mL 12/23/24 OXYGEN - Supplemental ([facility] INFORMATIONAL USE ONLY) hypoxia 12/25/24 aspirin 81 mg tablet,delayed release 81 mg PO BREAKFAST #0 tabs 01/12/25 bumetanide 0.5 mg tablet 1 mg (2 x 0.5 mg) PO QDAY #60 tabs 01/12/25 insulin glargine-yfgn 100 unit/mL (3 mL) subcutaneous pen 25 unit (0.25 mL) subcut BID #15 mL 01/12/25 pen needle, diabetic 32 gauge x #100 ea 01/13/25
--- NOTE | 2025-02-03 13:44 | DS.PCM_ITS ---
Providers Date of Admission: 01/27/25 Primary Care Physician: Dr. Donna Will MD Reason For Visit: DEBILITY, ELEVATED TROPONIN Diagnosis Discharge Diagnosis (1) LUIS (acute kidney injury): Status: Acute Code(s): N17.9 - Acute kidney failure, unspecified (2) Debility: Status: Acute Code(s): R53.81 - Other malaise Medications at Discharge Home Medications finasteride 5 mg tablet 5 mg PO DAILY prostate 08/14/22 tamsulosin 0.4 mg capsule 0.4 mg PO QHS prostate 08/14/22 multivitamin 1 tab PO DAILY vitamin 09/13/22 mirtazapine 15 mg tablet (Remeron) 7.5 mg (1/2 x 15 mg) PO QHS sleep #90 tabs 10/29/23 needle (disp) 32 gauge 32 gauge x 5/16 (Easy Touch Hypodermic Needle) #100 ea 11/12/23 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 sensor (FreeStyle Basilio 3 Sensor device) #1 ea 12/24/23 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,caramel maker,cont (FreeStyle Basilio 3 [place]) #1 ea 12/24/23 ferrous sulfate 325 mg (65 mg iron) tablet (FeroSul) 325 mg PO QODAY Supplement 04/05/24 cholecalciferol (vitamin D3) 50 mcg (2,000 unit) capsule 50 mcg PO QDAY health maintenance 06/28/24 pantoprazole 40 mg tablet,delayed release (Protonix) 40 mg PO DAILY reflux 30 days #0 tabs 08/25/24 sennosides 8.6 mg-docusate sodium 50 mg tablet (Stimulant Laxative Plus) 2 tab PO BID PRN Constipation #0 tabs 08/25/24 albuterol sulfate 90 mcg/actuation aerosol inhaler 2 puff inhalation Q6 PRN shortness of breath or wheezing 09/24/24 budesonide 1 mg/2 mL suspension for nebulization 1 mg (2 mL) inhalation Q12H wheezing/SOB #120 mL 09/24/24 atorvastatin 40 mg tablet 40 mg PO QHS cholesterol #90 tabs 10/08/24 carvedilol 6.25 mg tablet 6.25 mg PO BID BP #180 tabs 10/08/24 spironolactone 25 mg tablet 25 mg PO DAILY diuretic #90 tabs 10/08/24 empagliflozin 10 mg tablet (Jardiance) 10 mg PO DAILY diabetes #90 TABLETS 11/10/24 ipratropium 0.5 mg-albuterol 3 mg (2.5 mg base)/3 mL nebulization soln 3 ml inhalation Q4H PRN PRN SOB &/OR WHEEZING #270 mL 11/26/24 escitalopram oxalate 10 mg tablet 10 mg PO DAILY mood 90 days #90 tabs 11/29/24 insulin aspart U-100 100 unit/mL (3 mL) subcutaneous pen See Rx Instructions subcut .COMPLEX High Blood Glucose #15 mL 12/23/24 OXYGEN - Supplemental ([facility] [place] [facility] INFORMATIONAL USE ONLY) hypoxia 12/25/24 aspirin 81 mg tablet,delayed release 81 mg PO BREAKFAST heart health #0 tabs 01/12/25 bumetanide 0.5 mg tablet 1 mg (2 x 0.5 mg) PO QDAY diuretic #60 tabs 01/12/25 insulin glargine-yfgn 100 unit/mL (3 mL) subcutaneous pen 25 unit (0.25 mL) subcut BID diabetes #15 mL 01/12/25 pen needle, diabetic 32 gauge x #100 ea 01/13/25 midodrine 10 mg tablet 10 mg PO TIDCM 30 days #90 tabs 02/03/25 Hospital Course Operations None Procedures 2-D Echocardiogram Summary of Care Provided Minutes Spent on Discharge: 37 Hospital Course: Per HPI: SAL ALONZO, is a 74 M who presents with weakness. Has a history of heart failure and was just recently discharged on 12 January with a MRSA pneumonia after an 18-day stay in the hospital. Patient actually was doing pretty well and was discharged home. But since being at home. Since this past , patient has progressively gotten weaker to the point where he cannot adequately care for himself which led him going back into the hospital. He denies any fever or chills, no sore throat or rhinitis, no shortness of breath, no chest pain no abdominal pain no nausea or vomiting. Denies any lower extremity edema. He had a chest CT today that showed bronchiectasis with some mild scarring but no focal infiltrates. He had elevated troponins of 130 that trended down to 126. His BNP was elevated 2476, however that is an improvement from 07 January was 6130. But given his weakness and other medical derangements, the hospital service was contacted for admission. Hospital Course: 1. CKD 3 due to overdiuresis with chronic hypotension secondary to heart failure/debility and weakness/Serratia UTI?74-year-old male presented to the hospital with increasing dyspnea and weakness. He was continued on his home medications pressures were little bit low so in order to affect appropriate diuresis he was started on midodrine 10 mg p.o. 3 times daily which we will continue on discharge. He was also started on Rocephin for Serratia UTI which she has completed prior to discharge home. Initially he was can to be transferred to a nursing facility however he did improve in his ambulation and strength during his hospitalization therefore he will be discharged home. He does have multiple severe chronic illnesses and he has been in the hospital multiple times therefore there was a discussion on advance care planning with him and his family that if he were to need to be readmitted again that they should be considering palliative care versus hospice care. I discussed with him the possibility of discharge and he expressed understanding of the risks and benefits of going home and would like to go home. 2. Coronary artery disease status post stent, chronic systolic CHF, essential hypertension, hyperlipidemia, A-fib, type 2 diabetes, iron deficiency anemia with a history of recurrent GI bleed secondary to AVMs, history of DVT and PE, anxiety, depression, BPH with obstruction all chronic medical conditions which complicate his care. His home medications were continued where appropriate. Physical Exam Narrative General: Alert, Oriented x3, Cooperative, No apparent distress HEENT: Atraumatic, PERRLA, EOMI, Normocephalic Oral: Moist Mucosa Neck: Supple, No JVD Lungs: Diminished, Normal air movement, No rhonchi, No wheeze, No rales Cardiovascular: Regular rate, Regular Rhythm, Normal S1, Normal S2, No murmurs Abdomen: Soft, Non Tender, Non-Distended, No Hepato-splenomegaly Extremities: Trace edema, Capillary Refill Less than 3 Seconds Skin: No rashes, No breakdown Musculoskeletal: No Tenderness to Palpation of Joints or Extremities Neurological: No focal neurological deficits, moves all extremities Psych/Mental Status: Normal Affect, Appropriate Weight / BMI Weight Weight: 196 lb 10.437 oz Body Mass Index (BMI) 27.4 ABG / Lab / Microbiology Data 02/03/25 05:21 02/03/25 05:21 Laboratory: Laboratory Results - last 24 hr 12/10/25 16:37: POC Glucose 82 02/02/25 20:50: POC Glucose 110 H 02/03/25 05:21: WBC 7.4, RBC 3.00 L, Hgb 9.3 L, Hct 29.1 L, MCV 97.0 H, MCH 31.0, MCHC 32.0, RDW Std Deviation 66.3 H, RDW Coeff of Rafael 18.6 H, Plt Count 239, MPV 10.5, Neut % (Auto) Not Reportable, Absolute Neuts (auto) 2.1, Absolute Lymphs (auto) 2.35, Total Counted 100, Neutrophils % (Manual) 27 L, Band Neutrophils % 2, Lymphocytes % (Manual) 32, Monocytes % (Manual) 23 H, E osinophils % (Manual) 10 H, Metamyelocytes % 6 H, Platelet Estimate ADEQUATE, RBC Morphology NORM C+C, Anisocytosis RARE, Sodium 141, Potassium 4.6, Chloride 102, Carbon Dioxide 26.9, Anion Gap 12, BUN 46 H, Creatinine 1.77 H, Estim Creat Clear Calc 38.41 L, Est GFR (MDRD) Non-Af 40 L, BUN/Creatinine Ratio 25.8 H, G lucose 67 L, Calcium 9.0 02/03/25 07:36: POC Glucose 76 02/03/25 11:03: POC Glucose 100 Microbiology: Microbiology 01/27/25 12:24 Blood Culture (Wb) - Left Forearm Blood Culture - Final No growth in 5 days. 01/27/25 12:05 Blood Culture (Wb) - Left Forearm Blood Culture - Final No growth in 5 days. 01/27/25 15:15 Urine, Clean Catch Urine Culture - Final Serratia marcescens 01/27/25 12:14 Mucosa - Nose SARS-CoV-2, Influenza & RSV (PCR) - Final D/C Instructions Call your doctor if you observe: Fever of 101 or Higher, Shortness of breath, Dizziness, Fainting spells, Swelling in the ankles, Chest pain and Increased palpitations (irregular heartbeat) DC O2, CPAP, BIPAP Needs Home O2 Discharge instructions: No Meaningful Use Info Meaningful Use Meaningful Use Diagnoses (Choose all that apply): None applicable Discharge Plan Admission Admit Date/Time: 01/27/25 14:54 Attending Provider: Huang Lazcano Primary Care Provider: Donna Will Consulting Providers: Marco Cruz; Nadira Ricks Discharge Orders/Prescriptions Prescriptions: New midodrine 10 mg tablet 10 mg PO TIDCM 30 Days Qty: 90 0RF Continued multivitamin Tablet 1 tab PO DAILY tamsulosin 0.4 mg capsule 0.4 mg PO QHS finasteride 5 mg tablet 5 mg PO DAILY albuterol sulfate 90 mcg/actuation HFA aerosol inhaler 2 puff inhalation Q6 PRN (Reason: shortness of breath or wheezing) budesonide 1 mg/2 mL suspension for nebulization 1 mg inhalation Q12H Qty: 120 11RF atorvastatin 40 mg tablet 40 mg PO QHS Qty: 90 3RF carvedilol 6.25 mg tablet 6.25 mg PO BID Qty: 180 3RF Rx Instructions: must administer with a meal/food spironolactone 25 mg tablet 25 mg PO DAILY Qty: 90 3RF Rx Instructions: Hold for serum potassium more than 5.0 ferrous sulfate [FeroSul] 325 mg (65 mg iron) Tablet 325 mg PO QODAY sennosides-docusate sodium [Stimulant Laxative Plus] 8.6-50 mg Tablet 2 tab PO BID PRN (Reason: Constipation) Qty: 0 0RF pantoprazole [Protonix] 40 mg tablet,delayed release (DR/EC) 40 mg PO DAILY 30 Days Qty: 0 0RF (DME) Easy Touch Hypodermic Needle 32 gauge x 5/16 needle See Rx Instructions .Route Qty: 100 0RF Rx Instructions: As directed OXYGEN - Supplemental ([facility] [place] [facility] INFORMATIONAL USE ONLY) Patient Comments: per CM note pt wears 4 lpm NC at rest and 6lpm w/exertion. DME: [employer] aspirin 81 mg Tablet,Delayed Release (Dr/Ec) 81 mg PO BREAKFAST Qty: 0 0RF insulin glargine-yfgn 100 unit/mL (3 mL) Insulin Pen 25 unit subcut BID Qty: 15 0RF bumetanide 0.5 mg tablet 1 mg PO QDAY Qty: 60 1RF mirtazapine [Remeron] 15 mg tablet 7.5 mg PO QHS Qty: 90 3RF (DME) FreeStyle Basilio 3 Sensor Device See Rx Instructions .Route Qty: 1 5RF Rx Instructions: As directed (DME) FreeStyle Basilio 3 [place] Misc See Rx Instructions .Route Qty: 1 0RF Rx Instructions: As directed cholecalciferol (vitamin D3) 50 mcg (2,000 unit) capsule 50 mcg PO QDAY Jardiance 10 mg tablet 10 mg PO DAILY Qty: 90 0RF ipratropium-albuterol 0.5 mg-3 mg(2.5 mg base)/3 mL solution for nebulization 3 ml inhalation Q4H PRN PRN (Reason: SOB &/OR WHEEZING) Qty: 270 11RF escitalopram oxalate 10 mg tablet 10 mg PO DAILY 90 Days Qty: 90 3RF insulin aspart U-100 100 unit/mL (3 mL) insulin pen See Rx Instructions subcut .COMPLEX MDD 26 Qty: 15 2RF Protocol: 3. Sliding Scale Insulin Med Dosing Condition: 150-189 mg/dl = 1 unit Condition: 190-229 mg/dl = 2 units Condition: 230-269 mg/dl = 3 units Condition: 270-309 mg/dl = 4 units Condition: 310-349 mg/dl = 5 units Condition: 350-399 mg/dl = 6 units Condition: 400-449 mg/dl = 7 units Condition: Greater than 449 call physician Protocol Text: Suggested for: - Patients on Total Daily Insulin Dose of 37-55 units - Obese, infected, or steroid patients MEDIUM DOSING ALGORITHIM Rx Instructions: Take 14 units with breakfast, 16 units with lunch, 16 units with supper plus additional sliding Scale: For blood sugar of 190-229 add 2 units, 230-269 add 3 units, 270 or above add 4 units. (DME) pen needle, diabetic 32 gauge x 5/32 needle See Rx Instructions .ROUTE .MEDSUPPLY Qty: 100 5RF Rx Instructions: As directed Discontinued prednisone 20 mg Tablet 40 mg PO BREAKFAST Qty: 8 0RF Referrals / Follow Up: Donna Will MD [Primary Care Provider, Internal Medicine - [facility]] - 02/14/25 11:30 am Disposition Disposition (needs filled in before D/C Order can be placed): Home Health Service Charges/Coding Visit Charges Inpatient E&M: 23271 Disch Hosp >30min
--- NOTE | 2025-02-03 14:13 | CASEMGMT ---
Patient has order for discharge. RN QUANG called and updated [facility], resumption of care planned of tomorrow. RN CM in to update patient. Patient voiced understanding and appreciation, patient denied further needs or concerns. RN QUANG called and updated son Ray of planned discharge for today and [facility] resumption planned for tomorrow. Ray had no further questions or concerns. RN QUANG updated discharge plan.
== END 2025-02-03 15:43 | disposition home health service (06) | DRG 292 ==
LOC: ED 14:58 → PCU 16:35
PROVIDERS: Internal Medicine; Emergency Provider Student in an Organized Health Care Education/Training Program; PCP Internal Medicine; Visit Provider Family Medicine
DX: I13.0 Hypertensive heart and chronic kidney disease with heart failure and stage 1 through stage 4 chronic kidney disease, or unspecified chronic kidney disease (principal); N13.8 Other obstructive and reflux uropathy; I48.20 Chronic atrial fibrillation, unspecified; I50.22 Chronic systolic (congestive) heart failure; N39.0 Urinary tract infection, site not specified; D69.6 Thrombocytopenia, unspecified; R62.7 Adult failure to thrive; E86.0 Dehydration; Z66 Do not resuscitate; E11.22 Type 2 diabetes mellitus with diabetic chronic kidney disease; J44.9 Chronic obstructive pulmonary disease, unspecified; N18.32 Chronic kidney disease, stage 3b; M06.9 Rheumatoid arthritis, unspecified; F32.A Depression, unspecified; D50.9 Iron deficiency anemia, unspecified; Z95.828 Presence of other vascular implants and grafts; I95.89 Other hypotension; E11.65 Type 2 diabetes mellitus with hyperglycemia; E78.5 Hyperlipidemia, unspecified; I25.10 Atherosclerotic heart disease of native coronary artery without angina pectoris; I25.5 Ischemic cardiomyopathy; I25.2 Old myocardial infarction; Z79.4 Long term (current) use of insulin; F41.9 Anxiety disorder, unspecified; K21.9 Gastro-esophageal reflux disease without esophagitis; E55.9 Vitamin D deficiency, unspecified; B96.89 Other specified bacterial agents as the cause of diseases classified elsewhere; R53.81 Other malaise; Z99.81 Dependence on supplemental oxygen; R53.1 Weakness; T50.1X5A Adverse effect of loop [high-ceiling] diuretics, initial encounter; N40.1 Benign prostatic hyperplasia with lower urinary tract symptoms; Z95.5 Presence of coronary angioplasty implant and graft; Z86.711 Personal history of pulmonary embolism; Z87.891 Personal history of nicotine dependence; Z86.718 Personal history of other venous thrombosis and embolism; Z85.72 Personal history of non-Hodgkin lymphomas; Z87.19 Personal history of other diseases of the digestive system; Z79.82 Long term (current) use of aspirin; Z92.3 Personal history of irradiation; Z79.899 Other long term (current) drug therapy; Z86.14 Personal history of Methicillin resistant Staphylococcus aureus infection; Z87.01 Personal history of pneumonia (recurrent); Z92.21 Personal history of antineoplastic chemotherapy; Z79.51 Long term (current) use of inhaled steroids; Z79.84 Long term (current) use of oral hypoglycemic drugs; Z68.27 Body mass index [BMI] 27.0-27.9, adult
CPT/HCPCS: 36415; 71250; 80048; 80053; 81001; 82962; 83605; 83880; 84484; 85025; 85027; 87040; 87077; 87086; 87088; 87186; 87631; 93005; 93308; 94640; 97110; 97116; 97162; 97166; 97530; 97535; 99285; Q9957; A4216; C8924